=== PATIENT | female | born 1970 | race Caucasian/White ===

== ENCOUNTER 2022-12-11 13:39 | Outpatient (OUT) | payer MEDICARE, OTHER, MEDICAID, SELFPAY ==
[2022-12-11 13:58] LABS: Basophils Percent Auto 0.3 % (0.2-2.0); Eosinophils Absolute Auto 0.1 10^3/uL (0.0-0.7); Eosinophils Percent Auto 0.9 % (0.9-7.0); Hematocrit 49.6 % (36.0-48.0); Hemoglobin 16.2 g/dL (12.0-16.0); Immature Granulocytes Abs Auto 0.11 10^3/uL (0.00-0.03); Immature Granulocytes Pct Auto 0.7 % (0.0-0.5); Lymphocytes Absolute Auto 4.5 10^3/uL (1.2-3.8); Lymphocytes Percent Auto 29.5 % (20.5-60.0); Mean Corpuscular HGB Conc 32.7 g/dL (29.9-35.2); Mean Corpuscular Hemoglobin 28.5 pg (26.7-34.0); Mean Corpuscular Volume 87.2 fL (81.0-99.0); Mean Platelet Volume 12.1 fL (9.5-13.5); Monocytes Absolute Auto 0.7 10^3/uL (0.3-0.8); Monocytes Percent Auto 4.7 % (1.7-12.0); Neutrophils Absolute Auto 9.7 10^3/uL (1.4-6.5); Neutrophils Percent Auto 63.9 % (43.0-75.0); Platelet Count 172 10^3/uL (150-450); Red Blood Count 5.69 10^6/uL (4.20-5.40); Red Cell Distribution Width 14.1 % (11.0-15.0); White Blood Count 15.2 10^3/uL (4.0-11.0)
== END 2022-12-11 13:40 ==
LOC: LAB 13:40
PROVIDERS: PCP Nurse Practitioner; Visit Provider Nurse Practitioner
DX: D72.829 Elevated white blood cell count, unspecified (principal)
CPT/HCPCS: 36415; 85025

== ENCOUNTER 2023-01-23 07:28 | Outpatient (OUT) | payer MEDICARE, OTHER, MEDICAID, SELFPAY | END 2023-01-23 07:29 | LOC: SLEEP 07:28 | PROVIDERS: PCP Nurse Practitioner; Visit Provider Nurse Practitioner | DX: G47.33 Obstructive sleep apnea (adult) (pediatric) (principal) | CPT/HCPCS: 95811 ==

== ENCOUNTER 2023-01-24 07:53 | Outpatient (OUT) | payer MEDICARE, OTHER, MEDICAID, SELFPAY ==
--- NOTE | 2023-01-24 08:52 | CA_ITS ---
Patient: SINA NICHOLE Exam Date: 01/24/2023 : 1970 Gender:F Ordering : SAYDA Mckaylajuvenal Blas [facility] Admission #: [id number] Family : Order #: [id number] CLICK HERE TO VIEW EXAM ECHOCARDIOGRAM REPORT PROCEDURE: CA ECHO DOPPLER COMPLETE INDICATIONS: Pulmonary hypertension, COPD, smoker, hypertension, diabetes COMPARISON: None. DESCRIPTION: COMPLETE ECHOCARDIOGRAM Real-time transthoracic echocardiography with 2D, M-mode, spectral and color flow Doppler performed. QUALITY: Technically difficult study due to patients condition. Recommend contrast study if further evaluation of left ventricular function is needed. LEFT VENTRICLE: Mild dilatation. Moderate concentric left ventricular hypertrophy. Normal systolic function. LV EF: Normal left ventricular ejection fraction, (>55%). DIASTOLIC: Not adequately assessed due to heart rhythm. ATRIAL SEPTUM: LEFT ATRIUM: Normal chamber size. RIGHT ATRIUM: Normal chamber size. RIGHT VENTRICLE: Normal chamber size. Normal right ventricular systolic function. TRICUSPID VALVE: Not well visualized. No stenosis with no regurgitation. MITRAL VALVE: Normal mobility and thickness. No evidence of mitral valve stenosis. There is no mitral annular calcification. No mitral regurgitation. AORTIC VALVE: Normal trileaflet appearance. No visible sclerosis. Normal leaflet mobility. No evidence of aortic valve stenosis. No aortic regurgitation. AORTIC ROOT: Normal diameter and appearance. PULMONIC VALVE: Not well visualized. No stenosis. No regurgitation. PERICARDIUM: No evidence of pericardial effusion. IVC: Not well visualized. PLEURA: CONCLUSION: 1. Technically difficult study with poor sound transmission. 2. Moderate concentric left ventricular hypertrophy with normal systolic function. LVEF is 55 to 60%. 3. Normal right ventricular size and systolic function. 4. No significant valvular abnormalities. 5. No pericardial effusion. Adult Echocardiography Procedure Report Left Ventricle LVEDD (3.7 - 5.6 cm): 5.42 cm LVESD (2.2 - 4.0 cm): 3.21 cm LVIVS thickness (0.6 - 1.2 cm): 1.17 cm LVPW thickness (0.5 - 1.0 cm): 1.38 cm e': 0.07 m/s E - e': 10.49 LVOT Max Gradient: 4.59 mm[Hg] LVOT Area (cm2): 1.07 m/s Peak Velocity (LVOT): 1.07 m/s LVOT Diameter 2.28 cm Left Atrium Left Atrium Systolic Dimension: 3.79 cm Mitral Valve MV E to A Ratio: 0.90, 0.82 Mitral Valve A-Wave Peak Velocity: 0.87 m/s Mitral Valve E-Wave Peak Velocity: 0.75 m/s Right Ventricle Aorta AO Root Diam: 3.23 cm Aortic Valve AoV Area (Peak Song): 2.53 cm2, 2.53 cm2 Peak Velocity(Antegrade Flow): 1.73 m/s Peak Gradient(Antegrade Flow): 11.99 mm[Hg] Tricuspid Valve Pulmonic Valve Peak Velocity: 1.06 m/s Peak Gradient: 4.93 mm[Hg], 4.10 mm[Hg] Right Atrium Dictated by: Hayden Herrera M.D. on 01/25/2023 at 18:47 Approved by: Hayden Herrera M.D. on 01/25/2023 at 18:50
== END 2023-01-24 07:54 | disposition home or self-care (01) ==
LOC: CARD 07:53
PROVIDERS: PCP Nurse Practitioner; Visit Provider Nurse Practitioner
DX: I27.20 Pulmonary hypertension, unspecified (principal); G47.33 Obstructive sleep apnea (adult) (pediatric); J44.9 Chronic obstructive pulmonary disease, unspecified; I10 Essential (primary) hypertension; E11.9 Type 2 diabetes mellitus without complications; F17.210 Nicotine dependence, cigarettes, uncomplicated
CPT/HCPCS: 93306

== ENCOUNTER 2023-02-22 09:33 | Outpatient (OUT) | payer MEDICARE, OTHER, MEDICAID, SELFPAY ==
--- NOTE | 2023-02-22 09:45 | CT_ITS ---
[address] [address] Patient Name: SINA NICHOLE MRN: [id number] date: 1970 Sex: F Assigned Patient Location: CT Current Patient Location: Accession/Order Number: [id number] Exam Date: 02/22/2023 10:20 Report Date: 02/23/2023 01:29 At the request of: LUIS M CHAND Procedure: CT chest w con EXAMINATION: CT chest w con HISTORY: Abnormal Chest CT R93.89 follow-up hilar and mediastinal lymphadenopathy COMPARISON: CTA chest 12/04/2022 TECHNIQUE: Multi-planar CT images were obtained without and/or with IV contrast as indicated by examination type. Axial, Coronal, and Sagittal images. Dose reduction techniques were achieved by using automated exposure control and/or adjustment of mA and/or kV according to patient size and/or use of iterative reconstruction technique. FINDINGS: LUNGS: Trace amount of stranding within base of left upper lobe; residual infiltrates versus atelectasis. PLEURA: No mass, effusion, or pneumothorax. VASCULATURE: No abnormality. ZANDRA: No mass or adenopathy. MEDIASTINUM: No mass or adenopathy. CARDIAC: No enlargement, pericardial thickening, or significant calcification. AORTA: No aneurysm or dissection. CHEST WALL: No mass or axillary adenopathy. BONES: No bone lesion or fracture. LIMITED ABDOMEN: Stable partial fatty left adrenal mass favoring a benign adenoma. Limited images of the upper abdomen. OTHER: Negative. CT/CT chest w con IMPRESSION: 1. Trace amount of residual infiltrate versus atelectasis within left upper lobe. 2. Resolution of previously seen lymphadenopathy. 3. Stable left adrenal mass favoring benign etiology such as an adenoma. Electronically authenticated by: PATRICIA VELOZ Date: 02/23/2023 01:29
== END 2023-02-22 09:34 | disposition home or self-care (01) ==
LOC: CT 09:34
PROVIDERS: PCP Nurse Practitioner; Visit Provider Nurse Practitioner
DX: R93.89 Abnormal findings on diagnostic imaging of other specified body structures (principal)
CPT/HCPCS: 71260; Q9967

== ENCOUNTER 2023-03-08 12:47 | Outpatient (OUT) | payer MEDICARE, OTHER, MEDICAID, SELFPAY ==
--- NOTE | 2023-03-08 12:58 | P.CN_ITS ---
Consult Note: HPI Data of Consult Patient: known to practice within the last 3 years Requesting Physician: Angela Cochran NP Primary Care Provider: Mckayla Blas Consult Narrative Reason for consult: chronic pain f/u Narrative: Mitzi Macias a pleasant 52 year old female who presents for evaluation of chronic right hip pain, hx of osteoarthritis. Patient tolerating current regimen well with improvement but would like to discuss additional injection therapy. Today rating pain 7/10. cc:: CC: Angela Cochran NP Review of Systems ROS Status of ROS 10 or more systems reviewed and unremarkable except as noted in history and below Musculoskeletal Reports: back pain and joint pain Exam Constitutional Vital Signs, click to edit/add: BP elevated 187/73 Documenting provider has reviewed patient's vital signs: yes Common normals: no apparent distress, oriented x3, healthy appearing, alert and well nourished General appearance: cooperative Nutritional appearance: obese HENMT Common normals: normocephalic, hearing grossly normal bilaterally and moist oral mucous membranes Head and scalp: normocephalic Eye Common normals: PERRL Pupil: PERRL Neck & C-Spine Common normals: full ROM General: normal visual inspection Chest Common normals: inspection of chest normal Respiratory Common normals: normal respiratory effort, no retractions and no use of accessory muscles Back & Pelvis Lumbar spine/lower back: pain with ROM Other: modified physical exam due to size and wheelchair use. bilateral hip pain R>L no radiculopathy Neuro Common normals: oriented x3, CN's II-XII intact bilaterally, moves all extremities, no focal motor deficits, no sensory deficits noted and deep tendon reflexes 2+ bilaterally Sensorium/orientation: alert Gait (neuro): assistive device used (wheelchair) Motor exam: no movement abnormalities noted and strength abnormal (5/5 BUE 3/5 BLE) Other: chronic neuropathy Psych Common normals: mental status grossly normal, thought process normal, cooperative, affect normal, speech normal and activity/motor behavior normal Speech: normal speech Thought process: normal thought process Results Additional Findings Additional findings: I have checked an OARRS report on this patient today and there are no aberrancies noted in the prescribing history.?? A drug screen was completed and reviewed within the last year, and if there has not been a drug screen completed we ordered one today to monitor higher risk, state monitored pain medication use. As part of providing excellent, safe, comprehensive care, the following was completed at our patient's visit: 1. A medication reconciliation and review to ensure accurate knowledge of current/active medications, including asking our patients to inform us about any [id number] medications or herbal remedies/nutritional supplements/alternative remedies. 2. A review to specifically ensure our patients have had annual screening for: elevated body mass index (BMI), tobacco use, screening for depression, and screening for unhealthy alcohol use. When screening is concerning, patients are provided with education and the specific recommendation to discuss the concerning health issue and treatment options with their primary care provider. NIKKY 50% with severe pain, pain with ADLs, pain that prevents her from lifting heavy objects, can only walk using a stick or crutches, pain prevents her from standing for more than 10 minutes, pain interferes with sleep and social life. Assessment and Plan Assessment and Plan (1) Chronic right hip pain: (2) Osteoarthritis of hip: Assessment and Plan: reviewed xray imaging of hip (3) Chronic prescription opiate use: Assessment and Plan: I have refilled the patient's opioid prescriptions at the above noted dose and schedule.? I feel these medications are improving the patient's quality of life and allow them to tolerate activities of daily living as well as participate in recreational activity.? The patient does not report intolerable side effects. The patient is NOT opioid naive and non-pharmacologic and non-opioid treatment has failed to significantly relieve the patient's pain and improve functionality. The patient has a diagnosis that is related to a somatic or visceral pain etiology. ? ?? I reviewed with the patient the potential risks and side effects with the use of?opioid medications including but not limited to respiratory depression,?sedation, and even . I verified the patient has access to naloxone should? these effects occur. I advised the patient to avoid the use of any other?sedation substances including alcohol, THC, and benzodiazepines while?taking opioid medications due to the risk of compounding side effects and?detrimental outcomes. I reviewed the FORM STRIPPER, pain treatment agreement, urine?drug screen, and opioid start talking forms. The patient was advised to let?their family know they had Naloxone in case they would need to administer?the medication.? ?? functional improvement and pain reduction with current therapy (4) Obesity: Assessment and Plan: The patient was counseled that proper dietary changes and consistent participation in a home exercise plan can lead to weight loss. Weight loss can help to improve functionality in patients with chronic pain.? (5) Hypertension: Assessment and Plan: Blood pressure is elevated today. No signs or symptoms of KS/CVA including chest pain, SOB, left sided acute neck, arm, or jaw pain (separate from chronic pain complaint), diaphoresis, facial drooping, new acute neuro changes in both upper and lower extremities (other than those mentioned in the note above). Recommend follow up with PCP for further evaluation and treatment.? Plan right hip injection under fluoroscopy, risks vs benefits discussed refill and continue [place] 5-325 TID pain f/u after injection
== END 2023-03-08 12:48 | disposition home or self-care (01) ==
LOC: PM 12:50
PROVIDERS: PCP Nurse Practitioner; Visit Provider Nurse Practitioner
DX: M25.551 Pain in right hip (principal); G89.29 Other chronic pain; M19.90 Unspecified osteoarthritis, unspecified site; Z79.891 Long term (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 opiate analgesic
CPT/HCPCS: G0463

== ENCOUNTER 2023-03-15 09:04 | Outpatient (OUT) | payer MEDICARE, OTHER, MEDICAID, SELFPAY | END 2023-03-15 09:05 | disposition home or self-care (01) | LOC: WC 09:04 | PROVIDERS: PCP Nurse Practitioner; Visit Provider Physician Assistant | DX: L60.1 Onycholysis (principal) | CPT/HCPCS: G0463 ==

== ENCOUNTER 2023-03-27 11:34 | Day surgery (SDC) | payer MEDICARE, MEDICAID, SELFPAY ==
[2023-03-27 11:59] VITALS: BP 147/83; PULSE 76; RESP 16; TEMP 36.6; O2SAT 96
[2023-03-27 12:02] LABS: Glucometer 154 mg/dL (74-106)
[2023-03-27] MEDS: 0.9 % SODIUM CHLORIDE 10 ML SYRINGE - SALINE FLUSH 2 ML INJ (13:02)
[2023-03-27] MEDS: BUPIVACAINE HCL 0.25% PF 25 MG/10 ML VIAL 4 ML INJ (13:02)
[2023-03-27] MEDS: LIDOCAINE HCL 2% PF 100 MG/5 ML VIAL INJ (13:03)
[2023-03-27] MEDS: IOHEXOL 240 MG/ML - 10 ML VIAL INJ (13:03)
[2023-03-27] MEDS: METHYLPREDNISOLONE ACETATE 40 MG/ML VIAL INJ (13:03)
--- NOTE | 2023-03-27 13:28 | P.ON_ITS ---
Date of procedure: 03/27/23 Pre-op diagnosis: Right hip osteoarthritis Post-op diagnosis: same as pre-op Procedure: Procedure: Right Hip joint injection Pre & postoperative diagnosis: pain secondary to osteoarthritis. Immediate complications none. Anesthesia: 2% lidocaine plain for skin wheal. After informed consent was obtained, patient brought to the OR placed in the supine position. Skin overlying the area was prepped and draped using betadine. 25-gauge 1/2 inch needle was used for skin wheal over the medial aspect of the joint identified under fluoroscopy. Omnipaque dye was used to confirm needle tip placement within the hip joint space 0.5 mL use of the injection. Sub sequently Depomedrol 40mg and Marcaine 0.25% 4ml was injected into the space. No indication of intravascular or intraneuronal needle tip placement or injection was noted post procedure. The needle was removed, patient transferred to Recovery room in stable condition to discharged home after meeting criteria. Anesthesia: Local Surgeon: Temo Sharp Condition: stable
== END 2023-03-27 13:07 | disposition home or self-care (01) ==
LOC: SURGOUT 11:35
PROVIDERS: PCP Nurse Practitioner; Visit Provider Anesthesiology Pain Medicine
DX: M16.11 Unilateral primary osteoarthritis, right hip (principal); Z79.4 Long term (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
CPT/HCPCS: 20610; 36415; 36416; 77002; 82948; J1030; Q9966

== ENCOUNTER 2023-04-05 10:27 | Outpatient (OUT) | payer MEDICARE, MEDICAID, SELFPAY ==
--- NOTE | 2023-04-05 10:50 | PM.CN ---
Consult Note: HPI Data of Consult Patient: known to practice within the last 3 years Requesting Physician: Angela Cochran NP Primary Care Provider: Mckayla Blas Consult Narrative Reason for consult: f/u Narrative: Mitzi Macias a pleasant 52 year old female presents for evaluation of chronic low back and hip pain. today rating pain 6/10. Patient had no relief from right hip injection. Would like to discuss additional treatment options. cc:: CC: Angela Cochran NP Review of Systems ROS Status of ROS 10 or more systems reviewed and unremarkable except as noted in history and below Musculoskeletal Reports: back pain and joint pain PFSH PFS Medical History Surgical History Meds Home Medications and Allergies Home Medications Medication Instructions Recorded Confirmed Type acetaminophen 500 mg capsule 1,000 mg PO Q6H PRN fever or pain 03/20/23 03/27/23 History amitriptyline 25 mg tablet 25 mg PO DAILY 03/20/23 03/27/23 History aspirin 81 mg tablet,delayed 81 mg PO DAILY 03/20/23 03/27/23 History release (Adult Aspirin Regimen) budesonide-formoterol HFA 160 2 inh inhalation BID 03/20/23 03/27/23 History mcg-4.5 mcg/actuation aerosol inhaler (Symbicort) diclofenac sodium 75 mg 75 mg PO BID 03/20/23 03/27/23 History tablet,delayed release dulaglutide 3 mg/0.5 mL 3 mg subcut QWEEK 03/20/23 03/27/23 History subcutaneous pen injector (Trulicity) duloxetine 60 mg capsule,delayed 60 mg PO DAILY 03/20/23 03/27/23 History release furosemide 40 mg tablet 40 mg PO DAILY 03/20/23 03/27/23 History hydrocodone 5 mg-acetaminophen 325 1 tab PO TID 03/20/23 03/27/23 History mg tablet insulin aspart U-100 100 unit/mL 1 sliding scale dose subcut 03/20/23 03/27/23 History (3 mL) subcutaneous pen (Novolog USEASDIRECTD FlexPen U-100 Insulin aspart) insulin glargine 100 unit/mL 58 unit subcut BID 03/20/23 03/27/23 History subcutaneous solution (Lantus U-100 Insulin) lisinopril 20 mg tablet 20 mg PO DAILY 03/20/23 03/27/23 History omeprazole 20 mg capsule,delayed 20 mg PO DAILY 03/20/23 03/27/23 History release pregabalin 300 mg capsule 300 mg PO Q12H 03/20/23 03/27/23 History tiotropium bromide 2.5 2 inh inhalation DAILY 03/20/23 03/27/23 History mcg/actuation mist for inhalation (Spiriva Respimat) hydrocodone 5 mg-acetaminophen 325 1 tab PO TID PRN pain #90 tabs 03/26/23 03/27/23 Rx mg tablet Allergies Allergy/AdvReac Type Severity Reaction Status Date / Time No Known Drug Allergies Allergy Verified 03/27/23 12:05 Exam Constitutional Documenting provider has reviewed patient's vital signs: yes Common normals: no apparent distress, oriented x3, healthy appearing, alert and well nourished General appearance: cooperative HENMT Common normals: normocephalic, hearing grossly normal bilaterally and moist oral mucous membranes Head and scalp: normocephalic Eye Common normals: PERRL Pupil: PERRL Neck & C-Spine Common normals: full ROM General: normal visual inspection Chest Common normals: inspection of chest normal Respiratory Common normals: normal respiratory effort, no retractions and no use of accessory muscles Back & Pelvis Thoracic spine/upper back: ROM limited and pain with ROM Lumbar spine/lower back: ROM limited and pain with ROM Other: bilateral hip pain right> left Extremity Common normals: normal to inspection Neuro Common normals: oriented x3, CN's II-XII intact bilaterally, moves all extremities, no focal motor deficits, no sensory deficits noted and deep tendon reflexes 2+ bilaterally Sensorium/orientation: alert Gait (neuro): assistive device used other (wheelchair) Motor exam: no movement abnormalities noted and strength abnormal (4/5 BUE and BLE) Psych Common normals: mental status grossly normal, thought process normal, cooperative, affect normal, speech normal and activity/motor behavior normal Speech: normal speech Thought process: normal thought process Results Additional Findings Additional findings: I have checked an OARRS report on this patient today and there are no aberrancies noted in the prescribing history.?? A drug screen was completed and reviewed within the last year, and if there has not been a drug screen completed we ordered one today to monitor higher risk, state monitored pain medication use. As part of providing excellent, safe, comprehensive care, the following was completed at our patient's visit: 1. A medication reconciliation and review to ensure accurate knowledge of current/active medications, including asking our patients to inform us about any [id number] medications or herbal remedies/nutritional supplements/alternative remedies. 2. A review to specifically ensure our patients have had annual screening for: elevated body mass index (BMI), tobacco use, screening for depression, and screening for unhealthy alcohol use. When screening is concerning, patients are provided with education and the specific recommendation to discuss the concerning health issue and treatment options with their primary care provider. Assessment and Plan Assessment and Plan (1) Chronic prescription opiate use: Assessment and Plan: I feel these medications are improving the patient's quality of life and allow them to tolerate activities of daily living as well as participate in recreational activity.? The patient does not report intolerable side effects. The patient is NOT opioid naive and non-pharmacologic and non-opioid treatment has failed to significantly relieve the patient's pain and improve functionality. The patient has a diagnosis that is related to a somatic or visceral pain etiology. ? ?? I reviewed with the patient the potential risks and side effects with the use of? opioid medications including but not limited to respiratory depression,? sedation, and even . I verified the patient has access to naloxone should? these effects occur. I advised the patient to avoid the use of any other? sedation substances including alcohol, THC, and benzodiazepines while? taking opioid medications due to the risk of compounding side effects and? detrimental outcomes. I reviewed the BOREMATIC MACHINE OPERATOR, pain treatment agreement, urine? drug screen, and opioid start talking forms. The patient was advised to let? their family know they had Naloxone in case they would need to administer? the medication.? (2) Osteoarthritis: (3) Chronic pain syndrome: (4) Obesity: Assessment and Plan: The patient was counseled that proper dietary changes and consistent participation in a home exercise plan can lead to weight loss. Weight loss can help to improve functionality in patients with chronic pain.? (5) Lumbar spondylosis: (6) Osteoarthritis of hip: (7) Chronic right hip pain: Plan increase duloxetine to 60mg BID continue other medications, tolerating well without side effects f/u 6 weeks to discuss effectiveness of medication changes
== END 2023-04-05 10:28 | disposition home or self-care (01) ==
PROVIDERS: PCP Nurse Practitioner; Visit Provider Nurse Practitioner
DX: M19.90 Unspecified osteoarthritis, unspecified site (principal); G89.4 Chronic pain syndrome; Z79.899 Other long term (current) drug therapy; E66.9 Obesity, unspecified; M47.816 Spondylosis without myelopathy or radiculopathy, lumbar region; M16.10 Unilateral primary osteoarthritis, unspecified hip; M25.551 Pain in right hip
CPT/HCPCS: G0463

== ENCOUNTER 2023-05-16 11:07 | Outpatient (OUT) | payer MEDICARE, OTHER, SELFPAY ==
--- NOTE | 2023-05-16 11:38 | P.CN_ITS ---
Consult Note: HPI Data of Consult Patient: known to practice within the last 3 years Requesting Physician: Angela Cochran NP Primary Care Provider: Mckayla Blas Consult Narrative Reason for consult: f/u Narrative: Mitzi Macias a pleasant 52 year old female presents for evaluation and management of low back and right hip pain. Today pain 7/10. Describes it as an aching pain in low back, sharp in right hip. Tolerating current medication regimen well without side effects. Would like to discuss additional treatment options. last hip injection did not provide pain relief. cc:: CC: Angela Cochran NP Review of Systems ROS Status of ROS 10 or more systems reviewed and unremarkable except as noted in history and below Musculoskeletal Reports: back pain and joint pain PFSH PFSH Medical History Acid reflux ?K21.9 - Gastro-esophageal reflux disease without esophagitis (ICD-10) Amputation toe ?S98.139A - Complete traumatic amputation of one unspecified lesser toe, initial encounter (ICD-10) Asthma ?J45.909 - Unspecified asthma, uncomplicated (ICD-10) COPD (chronic obstructive pulmonary disease) ?J44.9 - Chronic obstructive pulmonary disease, unspecified (ICD-10) Diabetes ?E11.9 - Type 2 diabetes mellitus without complications (ICD-10) High cholesterol ?E78.00 - Pure hypercholesterolemia, unspecified (ICD-10) Neuropathy ?G62.9 - Polyneuropathy, unspecified (ICD-10) Surgical History History of hammertoe correction ?Z98.890 - Other specified postprocedural states (ICD-10) ?Z87.39 - Personal history of other diseases of the musculoskeletal system and connective tissue (ICD-10) History of hysterectomy ?Z90.710 - Acquired absence of both cervix and uterus (ICD-10) Hx of cholecystectomy ?Z90.49 - Acquired absence of other specified parts of digestive tract (ICD- 10) Meds Home Medications and Allergies Home Medications Medication Instructions Recorded Confirmed Type acetaminophen 500 mg capsule 1,000 mg PO Q6H PRN fever or pain 03/20/23 03/27/23 History amitriptyline 25 mg tablet 25 mg PO DAILY 03/20/23 03/27/23 History aspirin 81 mg tablet,delayed 81 mg PO DAILY 03/20/23 03/27/23 History release (Adult Aspirin Regimen) budesonide-formoterol HFA 160 2 inh inhalation BID 03/20/23 03/27/23 History mcg-4.5 mcg/actuation aerosol inhaler (Symbicort) diclofenac sodium 75 mg 75 mg PO BID 03/20/23 03/27/23 History tablet,delayed release dulaglutide 3 mg/0.5 mL 3 mg subcut QWEEK 03/20/23 03/27/23 History subcutaneous pen injector (Trulicity) duloxetine 60 mg capsule,delayed 60 mg PO DAILY 03/20/23 03/27/23 History release furosemide 40 mg tablet 40 mg PO DAILY 03/20/23 03/27/23 History hydrocodone 5 mg-acetaminophen 325 1 tab PO TID 03/20/23 03/27/23 History mg tablet insulin aspart U-100 100 unit/mL 1 sliding scale dose subcut 03/20/23 03/27/23 History (3 mL) subcutaneous pen (Novolog USEASDIRECTD FlexPen U-100 Insulin aspart) insulin glargine 100 unit/mL 58 unit subcut BID 03/20/23 03/27/23 History subcutaneous solution (Lantus U-100 Insulin) lisinopril 20 mg tablet 20 mg PO DAILY 03/20/23 03/27/23 History omeprazole 20 mg capsule,delayed 20 mg PO DAILY 03/20/23 03/27/23 History release pregabalin 300 mg capsule 300 mg PO Q12H 03/20/23 03/27/23 History tiotropium bromide 2.5 2 inh inhalation DAILY 03/20/23 03/27/23 History mcg/actuation mist for inhalation (Spiriva Respimat) hydrocodone 5 mg-acetaminophen 325 1 tab PO TID PRN pain #90 tabs 03/26/23 03/27/23 Rx mg tablet duloxetine 60 mg capsule,delayed 60 mg PO BID #60 caps 04/05/23 Rx release hydrocodone 5 mg-acetaminophen 325 1 tab PO TID PRN pain #90 tabs 04/20/23 Rx mg tablet Allergies Allergy/AdvReac Type Severity Reaction Status Date / Time No Known Drug Allergies Allergy Verified 03/27/23 12:05 Exam Constitutional Documenting provider has reviewed patient's vital signs: yes Common normals: no apparent distress, oriented x3, healthy appearing, alert and well nourished General appearance: cooperative HENMT Common normals: normocephalic, hearing grossly normal bilaterally and moist oral mucous membranes Head and scalp: normocephalic Eye Common normals: PERRL Pupil: PERRL Neck & C-Spine Common normals: full ROM General: normal visual inspection Chest Common normals: inspection of chest normal Respiratory Common normals: normal respiratory effort, no retractions and no use of accessory muscles Back & Pelvis Thoracic spine/upper back: ROM limited and pain with ROM Lumbar spine/lower back: ROM limited and pain with ROM Other: bilateral hip pain right> left bilateral facet loading pain over l4-5 l5-s1 facets Extremity Common normals: normal to inspection Neuro Common normals: oriented x3, CN's II-XII intact bilaterally, moves all extremities, no focal motor deficits, no sensory deficits noted and deep tendon reflexes 2+ bilaterally Sensorium/orientation: alert Gait (neuro): assistive device used other (wheelchair) Motor exam: no movement abnormalities noted and strength abnormal (4/5 BUE and BLE) Psych Common normals: mental status grossly normal, thought process normal, cooperative, affect normal, speech normal and activity/motor behavior normal Speech: normal speech Thought process: normal thought process Assessment and Plan Assessment and Plan (1) Obesity: (2) Chronic prescription opiate use: (3) Osteoarthritis of hip: (4) Lumbar spondylosis: (5) Chronic pain syndrome: (6) Osteoarthritis: (7) Chronic right hip pain: Plan update imaging of lumbar spine bilateral L4-5 L5-S1 mbb x2 working towards thermal RFA based on physical exam patient unsure if she increased duloxetine to 60mg BID, she thinks she is still on 90mg daily. encouraged to increase to 60mg BID to assist in pain management continue f/u with endocrinology, consider alternative medications to assist in weight loss efforts non surgical for right hip OA due to obesity f/u 1 week after MBB
--- OUTSIDE RECORDS SUMMARY | 2023-06-26 14:01 | XMS_ITS | CCD ---
Author Name Unknown Address [address] [facility] [address] [facility] [address] [place] [address] Organization [facility] Care Team Providers Care Civil Rights Representative Name Role Phone Rufino Desouza Primary Care Provider [phone] RUFINO DESOUZA Primary Care Unavailable MARY TAVERAS Admitting Unavailable KYLAHEMARY Attending Unavailable AICHHOLZ, LUIS M Primary Care Unavailable AICHHOLZ, LUIS M Referring Unavailable AICHJODIE, LUIS M J Primary Care Physician Tico, Stephanie Unavailable GAVIOTA VEGA Attending Unavailable GAVIOTA VEGA Attending Unavailable MANNIE LUIS M J Referring Unavailable Elbert VARGAS Attending Unavailable OLE RAMIREZ Attending Unavailable OLE RAMIREZ Consulting Unavailable AICHHOLZ, LINOLEUM LAYER HELPER LUIS M Primary Care Unavailable OLE RAMIREZ Admitting Unavailable ANTONY SHRESTHA Consulting Unavailable ALONDRA ., UMBERTO Admitting Unavailable ALONDRA ., UMBERTO Attending Unavailable AICHHOLZ, LINOLEUM LAYER HELPER LUIS M Primary Care Unavailable AFSANEH Loera, DR BOLANOS Consulting Unavailable MARYANNE POWER Consulting Unavailable GLENN KERR Consulting Unavailable YOMAIRA KERR Consulting Unavailable HATTIE GOFF Consulting Unavailable ALONDRA ., UMBERTO Consulting Unavailable TICO, STEPHANIE Attending Unavailable TICO, STEPHANIE Consulting Unavailable AICHHOLZ, LINOLEUM LAYER HELPER LUIS M Primary Care Unavailable TICO, STEPHANIE Admitting Unavailable VARGAS ., DR DUMONT Admitting Unavailable AICHHOLZ, LINOLEUM LAYER HELPER LUIS M Primary Care Unavailable VARGAS ., DR DUMONT Attending Unavailable VARGAS ., DR DUMONT Consulting Unavailable COLLIN HUERTAS Consulting Unavailable CECILIA KAUFMAN Admitting Unavailable CECILIA KAUFMAN Attending Unavailable AICHHOLZ, LINOLEUM LAYER HELPER LUIS M Primary Care Unavailable RAFAEL GONGORA Attending Unavailable ROLAN, RAFAEL Admitting Unavailable AICHHOLZ, LINOLEUM LAYER HELPER LUIS M Primary Care Unavailable AICHHOLZ, LINOLEUM LAYER HELPER LUIS M Admitting Unavailable AICHHOLZ, LINOLEUM LAYER HELPER LUIS M Primary Care Unavailable AICHHOLZ, LINOLEUM LAYER HELPER LUIS M Attending Unavailable AICHHOLZ, LINOLEUM LAYER HELPER LUIS M Consulting Unavailable LAKSHMIPATHY ., NARENDRANATH Attending Anette vailable LAKSHMIPATHY ., NARENDRANATH Consulting Anette vailable LAKSHMIPATHY ., NARENDRANATH Admitting Anette vailable AICHHOLZ, LINOLEUM LAYER HELPER LUIS M Primary Care Unavailable VALENZUELA ., GIL Consulting Unavailable MORTENSEN ., DR CHAPARRO Aguillon Attending Unavailable MORTENSEN ., DR CHAPARRO Aguillon Admitting Unavailable AICHHOLZ, LINOLEUM LAYER HELPER LUIS M Primary Care Unavailable VALENZUELA ., GIL Consulting Unavailable MORTENSEN ., DR CHAPARRO Aguillon Admitting Unavailable AICHHOLZ, LINOLEUM LAYER HELPER LUIS M Primary Care Unavailable MORTENSEN ., DR CHAPARRO Aguillon Attending Unavailable HALKER ., SUBHASH Consulting Unavailable LAKSHMIPATHY ., NARENDRANATH Admitting Anette vailable LAKSHMIPATHY ., NARENDRANATH Attending Anette vailable AICHHOLZ, LINOLEUM LAYER HELPER LUIS M Primary Care Unavailable MORTENSEN ., DR CHAPARRO Aguillon Attending Unavailable MORTENSEN ., DR CHAPARRO Aguillon Admitting Unavailable VALENZUELA ., GIL Consulting Unavailable AICHHOLZ, LINOLEUM LAYER HELPER LUIS M Primary Care Unavailable VALENZUELA ., GIL Consulting Unavailable MORTENSEN ., DR CHAPARRO Aguillon Attending Unavailable MORTENSEN ., DR CHAPARRO Aguillon Admitting Unavailable AICHHOLZ, LINOLEUM LAYER HELPER LUIS M Primary Care Unavailable HATTIE BRODERICK Attending Unavailable HATTIE BRODERICK Admitting Unavailable AICHHOLZ, LINOLEUM LAYER HELPER LUIS M Primary Care Unavailable AICHHOLZ, LINOLEUM LAYER HELPER LUIS M Admitting Unavailable AICHHOLZ, LINOLEUM LAYER HELPER LUIS M Consulting Unavailable AICHHOLZ, LINOLEUM LAYER HELPER LUIS M Primary Care Unavailable AICHHOLZ, LINOLEUM LAYER HELPER LUIS M Attending Unavailable AICHHOLZ, LINOLEUM LAYER HELPER LUIS M Primary Care Unavailable MISC, DR LESLIE Admitting Unavailable MISC, DR LESLIE Attending Unavailable MISC, DOCTOR Consulting Unavailable DIAB ., MARIANO Admitting Unavailable DIAB ., MARIANO Attending Unavailable DIAB ., MARIANO Consulting Unavailable AICHHOLZ, LINOLEUM LAYER HELPER LUIS M Primary Care Unavailable RASTEGAR, RICCO Consulting Unavailable AICHHOLZ, LINOLEUM LAYER HELPER LUIS M Admitting Unavailable AICHHOLZ, LINOLEUM LAYER HELPER LUIS M Primary Care Unavailable AICHHOLZ, LINOLEUM LAYER HELPER LUIS M Attending Unavailable AICHHOLZ, LINOLEUM LAYER HELPER LUIS M Consulting Unavailable DR PATRICIA IVAN Consulting Unavailable CECILIA KAUFMAN Attending Unavailable CECILIA KAUFMAN Admitting Unavailable DR PATRICIA IVAN Consulting Unavailable [facility] Primary Care Unavailable CECILIA KAUFMAN Consulting Unavailable FESTUS ., DR CHAPARRO Aguillon Attending Unavailable FESTUS ., DR CHAPARRO Aguillon Consulting Unavailable FESTUS ., DR CHAPARRO Aguillon Admitting Unavailable [facility] Primary Care Unavailable HATTIE BRODERICK Attending Unavailable HATTIE BRODERICK Consulting Unavailable HATTIE BRODERICK Admitting Unavailable [facility] Primary Care Unavailable HATTIE BAUTISTA Unavailable [facility] LUIS M Admitting Unavailable [facility] Attending Unavailable [facility] Consulting Unavailable [facility] Primary Care Unavailable Allergies Allergy Classification Reported Allergen(s) Allergy Type Date of Onset Reaction(s) Facility (1 source) No Known Medication Allergies; 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: [No Known Medication Allergies] Propensity to adverse reactions (disorder) [facility] Repository Medications Current Medications Medication Drug Class(es) Dates Sig (Normalized) Sig (Original) acetaminophen 325 mg / HYDROcodone bitartrate 5 mg oral tablet (4 sources) Opioid Agonist Start: 02-06-2022 acetaminophen-hydr ocodone 325 mg-5 mg oral tablet Refill(s) 0 Start Date: 02/06/22 Status: Ordered take 1 tablet by vandana twice daily as needed Varina 5-325 MG 1 tablet as needed Orally TWICE A DAY Active albuterol 0.83 mg/ml inhalation solution (4 sources) beta2-Adrenergic Agonist Start: 02-06-2022 albut gilbert 0.083% Inh Tracey 3 mL Refill(s) 0 Start Date: 02/06/22 Status: Ordered Albuterol Sulfat e (2.5 MG/3ML) 0.083% 3 mL as needed Inhalation every 6 hrs Active amitriptyline hydrochloride 25 mg oral tablet (4 sources) Tricyclic Antidepressant Start: 02-06-2022 amitriptyline 25 mg Tab Refills(s) 0 Start Date: 02/06/22 Status: Ordered 120 actuat budesonide 0.16 mg/actuat / formoterol fumarate 0.0045 mg/actuat metered dose inhaler (2 sources) Corticosteroid, beta2-Adrenergic Agonist take 2 puff(s) by inhalation twice daily Symbicort 160-4.5 MCG/ACT 2 puffs Inhalation Twice a day Active diclofenac sodium 75 mg delayed release oral tablet (4 sources) Nonsteroidal Anti-inflammatory Drug Start: 02-06-2022 diclofenac sodium 75 mg Oral EC Tab Refills(s) 0 Start Date: 02/06/22 Status: Ordered 0.5 ML dulaglutide 9 MG/ML Auto-Injector [Trulicity] (4 sources) GLP-1 Receptor Agonist Start: 02-06-2022 Trulicity Pen 4.5 mg/0.5 mL subcutaneous solution Refills(s) 0 Start Date: 02/06/22 Status: Ordered Trulicity 4.5 MG /0.5ML as directed Subcutaneous ONCE A WEEK Active DULoxetine 30 mg delayed release oral capsule (3 sources) Serotonin and Norepinephrine Reuptake Inhibitor Start: 02-06-2022 DULoxetine 30 mg Cap-EC Refills(s) 0 Start Date: 02/06/22 Status: Ordered DULoxetine 30 mg Cap-EC (1 source) Start: 02-06-2022 DULoxetine 30 mg Cap-EC Refills(s) 0 Start Date: 02/06/22 Status: Ordered furosemide 20 mg oral tablet (6 sources) Loop Diuretic Start: 02-06-2022 furosemide 20 mg Tab Refills(s) 0 Start Date: 02/06/22 Status: Ordered take 1 tablet by vandana th once daily in the morning Furosemide 40 MG 1 tablet Orally ONCE A DAY IN THE AM Active NovoLog (4 sources) Insulin Analog Start: 02-06-2022 NovoLog SubCut aneous, TIDAC, Refills(s) 0 Start Date: 02/06/22 Status: Ordered NovoLOG 100 UNIT /ML as directed Injection SLIDING SCALE BEFORE EACH MEAL Active 3 ml insulin glargine 100 unt/ml pen injector (4 sources) Insulin Analog Start: 02-06-2022 Lantus Solosta r Pen 100 units/mL subcutaneous solution Refills(s) 0 Start Date: 02/06/22 Status: Ordered Lantus SoloStar 100 UNIT/ML as directed Subcutaneous 58 UNITS ONCE A DAY Active lisinopril 20 mg oral tablet (4 sources) Angiotensin Converting Enzyme Inhibitor Start: 02-06-2022 lisinopril 20 mg Tab Refills(s) 0 Start Date: 02/06/22 Status: Ordered meloxicam (4 sources) Nonsteroidal Anti-inflammatory Drug Start: 02-06-2022 meloxicam Daily, Refills(s) 0 Start Date: 02/06/22 Status: Ordered take 1 tablet by vandana th every twenty-four hours Meloxicam 7.5 MG 1 tablet Orally Once a day Active metFORMIN hydrochloride 1000 mg oral tablet (1 source) Biguanide take 1 tablet by mouth twice daily at mealtime metFORMIN (GLUCOPHAGE) 1000 MG tablet Take 1,000 mg by mouth 2 times daily (with meals). 0 Active potassium chloride 10 meq extended release oral capsule (4 sources) Start: 02-06-2022 potassium chloride 10 mEq Cap-ER Refills(s) 0 Start Date: 02/06/22 Status: Ordered take 1 tablet by vandana th every twenty-four hours Potassium Chloride ER 10 MEQ 1 tablet with food Orally Once a day Active Lyrica (6 sources) Start: 02-06-2022 Lyrica Oral, R efills(s) 0 Start Date: 02/06/22 Status: Ordered Start: 02-06-2022 pregabalin 300 mg Cap Refills(s) 0 Start Date: 02/06/22 Status: Ordered Symbicort 160/4.5 inhalation aerosol with adapter (2 sources) Start: 02-06-2022 Symbicort 160/ 4.5 inhalation aerosol with adapter Refill(s) 0 Start Date: 02/06/22 Status: Ordered 60 actuat tiotropium 0.0025 mg/actuat inhalation spray (4 sources) Anticholinergic Start: 02-06-2022 Spiriva Respim at 60 ACT 2.5 mcg/inh inhalation aerosol Refills(s) 0 Start Date: 02/06/22 Status: Ordered take 2 puff(s) by inhalation twi ce daily Spiriva Respimat 2.5 MCG/ACT 2 puffs Inhalation TWICE A DAY Active Problems Active Problems Problem Classification Problem Date Documented Da te Episodic/Chronic Abdominal pain (5 sources) Left flank pain; 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: [Lower abdominal pain, unspecified] Onset: 10-05-2022 02-06-2022 Episodic Acquired foot deformities (1 source) Other hammer toe(s) (acquired), right foot; 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: [OTHER HAMMER TOES ACQUIRED RT FOOT] Onset: 09-01-2022 Chronic Acquired foot deformities (1 source) Other hammer toe(s) (acquired), left foot; 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: [OTHER HAMMER TOES ACQUIRED LT FOOT] Onset: 09-01-2022 Chronic Administrative/social admission (2 sources) Patient encounter status; 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: [Dietary counseling and surveillance] Episodic Asthma (2 sources) Asthma 02-06-2022 Chronic Calculus of urinary tract (4 sources) Kidney stone; 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: [Calculus of kidney] Onset: 02-06-2022 Episodic Chronic kidney disease (5 sources) Chronic kidney disease; 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: [Chronic kidney disease, unspecified] Onset: 02-20-2022 Resolved: 03-08-2022 Chronic Chronic obstructive pulmonary disease and bronchiectasis (6 sources) Pulmonary emphysema; 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: [Chronic obstructive pulmonary disease with (acute) exacerbation] Onset: 10-09-2022 02-06-2022 Chronic Chronic ulcer of skin (3 sources) Non-pressure chronic ulcer of other part of right lower leg limited to breakdown of skin; 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: [Non-pressure chronic ulcer of other part of left lower leg limited to breakdown of skin] Onset: 09-01-2022 Chronic Diabetes mellitus with complications (19 sources) Disorder of kidney due to diabetes mellitus; 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: [Type 2 diabetes mellitus with diabetic chronic kidney disease] Onset: 02-20-2022 Resolved: 03-08-2022 Chronic Diabetes mellitus without complication (3 sources) Type 2 diabetes mellitus; 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: [Type 2 diabetes mellitus without complications] Onset: 04-27-2022 02-06-2022 Chronic Disorders of lipid metabolism (3 sources) Pure hypercholesterolemia, unspecified; 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: [Hyperlipidemia, unspecified] Onset: 04-06-2022 Chronic Esophageal disorders (1 source) Gastro-esophageal reflux disease without esophagitis; 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: [GERD WITHOUT ESOPHAGITIS] Onset: 12-05-2022 Chronic Essential hypertension (7 sources) Hypertensive disorder; 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: [Essential (primary) hypertension] Onset: 11-23-2022 02-06-2022 Chronic Genitourinary symptoms and ill-defined conditions (4 sources) Mixed incontinence; 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: [Incontinence] Onset: 02-06-2022 Chronic Headache; including migraine (2 sources) Headache 02-06-2022 Episodic Hypertension with complications and secondary hypertension (5 sources) Chronic kidney disease due to hypertension; 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: [Hypertensive chronic kidney disease with stage 1 through stage 4 chronic kidney disease, or unspecified chronic kidney disease] Onset: 02-20-2022 Resolved: 03-08-2022 Chronic Immunizations and screening for infectious disease (1 source) Encounter for screening for other infectious and parasitic diseases; 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: [ENC SCREENING OTH INF PARASITIC DZ] Onset: 09-29-2022 Episodic Mood disorders (1 source) Major depressive disorder, single episode, unspecified; 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: [ANASTACIO DEPRESS D/O SINGLE EPIS UNS] Onset: 12-27-2021 Chronic Mood disorders (1 source) Mood disorders; 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: [DEPRESSION UNSPECIFIED] Onset: 12-05-2022 Noninfectious gastroenteritis (1 source) Noninfective gastroenteritis and colitis, unspecified; 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: [NONINFECTIVE GE AND COLITIS UNS] Onset: 10-09-2022 Episodic Osteoarthritis (9 sources) Arthritis; 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: [Unspecified osteoarthritis, unspecified site] Onset: 04-20-2022 02-06-2022 Chronic Other aftercare (1 source) Other director long term care (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 therapy; 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: [OTH [facility] CURRENT DRUG THERAPY] Onset: 12-05-2022 Episodic Other aftercare (1 source) intermediate frame tender (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; 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: [FCI CURRENT USE OF ASPIRIN] Onset: 12-05-2022 Episodic Other aftercare (1 source) longterm (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; 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: [BRANCH LIBRARY CLERK CURRENT USE OF INSULIN] Onset: 12-05-2022 Episodic Other bone disease and musculoskeletal deformities (1 source) Acquired absence of other left toe(s); 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: [ACQUIRED ABSENCE OF OTHER LEFT TOES] Onset: 12-05-2022 Episodic Other diseases of kidney and ureters (1 source) Urinary tract obstruction; 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: [Other obstructive and reflux uropathy] Onset: 02-06-2022 Episodic Other diseases of veins and lymphatics (1 source) Chronic venous hypertension (idiopathic) with ulcer and inflammation of bilateral lower extremity; 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: [CHRN KEO HTN ULCR INFLAM ALEX LW EXT] Onset: 09-01-2022 Chronic Other diseases of veins and lymphatics (1 source) Chronic venous hypertension (idiopathic) with ulcer of left lower extremity; 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: [CHRON VENOUS HTN W/ULCER LT LW EXT] Onset: 09-01-2022 Chronic Other diseases of veins and lymphatics (1 source) Lymphedema, not elsewhere classified; 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: [LYMPHEDEMA NOT ELSEWHERE CLASSIFIED] Onset: 09-01-2022 Chronic Other endocrine disorders (2 sources) Disorder of adrenal gland; 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: [Other specified disorders of adrenal gland] Onset: 02-06-2022 Chronic Other endocrine disorders (2 sources) Adrenal mass; 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: [Disorder of adrenal gland, unspecified] Chronic Other endocrine disorders (2 sources) Disorder of adrenal gland, unspecified Onset: 02-20-2022 Resolved: 03-08-2022 Chronic Other endocrine disorders (5 sources) Other specified disorders of adrenal gland; 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: [OTHER SPEC DISORDERS ADRENAL GLAND] Onset: 07-27-2022 Chronic Other gastrointestinal disorders (2 sources) Adrenal mass 02-06-2022 Episodic Other lower respiratory disease (1 source) Hypoxemia; 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: [HYPOXEMIA] Onset: 12-05-2022 Episodic Other nervous system disorders (5 sources) Chronic pain syndrome; 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: [CHRONIC PAIN SYNDROME] Onset: 01-23-2022 Chronic Other nervous system disorders (1 source) Other chronic pain; 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: [OTHER CHRONIC PAIN] Onset: 04-24-2022 Chronic Other non-traumatic joint disorders (4 sources) Pain in right hip; 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: [PAIN IN RIGHT HIP] Onset: 04-27-2022 Episodic Other nutritional; endocrine; and metabolic disorders (2 sources) Localized adiposity; 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: [Localized adiposity] Chronic Other nutritional; endocrine; and metabolic disorders (2 sources) Body mass index 40+ - severely obese; 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: [Body mass index (BMI) 50.0-59.9, adult] Chronic Other nutritional; endocrine; and metabolic disorders (1 source) Body mass index (BMI) 50.0-59.9, adult; 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: [BODY MASS INDEX BMI 50.0-59.9 ADULT] Onset: 12-05-2022 Chronic Other nutritional; endocrine; and metabolic disorders (1 source) Morbid (severe) obesity due to excess calories; 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: [MORBID SEVERE OBES D/T EXCESS NHI] Onset: 12-05-2022 Chronic Other nutritional; endocrine; and metabolic disorders (1 source) Obesity, unspecified; 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: [OBESITY UNSPECIFIED] Onset: 04-24-2022 Chronic Other screening for suspected conditions (not mental disorders or infectious disease) (1 source) Encounter for screening mammogram for malignant neoplasm of breast; 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: [ENC SCR MAMMO MALIG NEOPLASM BREAST] Onset: 11-25-2022 Episodic Pancreatic disorders (not diabetes) (1 source) Acute pancreatitis without necrosis or infection, unspecified; 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: [ACUTE PANCREATITIS WO NECRS/INF UNS] Onset: 10-09-2022 Episodic Peripheral and visceral atherosclerosis (1 source) Peripheral vascular disease, unspecified; 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: [PERIPHERAL VASCULAR DISEASE UNS] Onset: 09-01-2022 Chronic Residual codes; unclassified (1 source) Obstructive sleep apnea (adult) (pediatric); 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: [OBSTRUCTIVE SLEEP APNEA] Onset: 10-09-2022 Chronic Residual codes; unclassified (1 source) Acquired absence of other specified parts of digestive tract; 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: [ACQ ABSENCE OTH PART DIGESTV TRACT] Onset: 12-05-2022 Episodic Residual codes; unclassified (1 source) Acquired absence of both cervix and uterus; 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: [ACQUIRED ABSENCE BOTH CERVIX AND UTERUS] Onset: 12-05-2022 Episodic Residual codes; unclassified (1 source) Family history of malignant neoplasm of ovary; 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: [FAM HX MALIGNANT NEOPLASM OVARY] Onset: 11-25-2022 Episodic Residual codes; unclassified (1 source) Family history of malignant neoplasm, unspecified; 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: [FAM HX MALIGNANT NEOPLASM UNS] Onset: 11-25-2022 Episodic Substance-related disorders (5 sources) Nicotine dependence; 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: [Nicotine dependence, unspecified, uncomplicated] Onset: 02-06-2022 Chronic Comment on above: Added secondary to d ocumentation in Social History. Unclassified (1 source) BRANCH LIBRARY CLERK INJECT NONINSULN ANTIDIAB; 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: [BRANCH LIBRARY CLERK INJECT NONINSULN ANTIDIAB] Onset: 12-05-2022 Unclassified (3 sources) CONTACT W/AND (SUSP) EXPOS COVID-19; 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: [CONTACT W/AND (SUSP) EXPOS COVID-19] Onset: 07-08-2022 Unclassified (3 sources) LOW BACK PAIN, UNSPECIFIED; 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 : [LOW BACK PAIN, UNSPECIFIED] Onset: 12-27-2021 Viral infection (1 source) COVID-19; 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: [COVID-19] Onset: 09-29-2022 Past or Other Problems Problem Classification Problem Date Documented Da te Episodic/Chronic Acquired foot deformities (1 source) Other deformities of toe(s) (acquired), left foot; 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: [OTHER DEFORMITIES TOES ACQ LT FOOT] Onset: 09-01-2022 Episodic E Codes: Natural/environment (1 source) Other and unspecified overexertion or strenuous movements or postures, initial encounter; 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: [OTH AND UNS OVREXRT/STRN MVMT/POS INT] Onset: 12-27-2021 Episodic Genitourinary symptoms and ill-defined conditions (6 sources) Proteinuria; 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: [Proteinuria, unspecified] Onset: 02-06-2022 Resolved: 03-08-2022 Episodic Mycoses (5 sources) Tinea unguium; 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: [TINEA UNGUIUM] Onset: 07-26-2022 Episodic Other connective tissue disease (4 sources) Other muscle spasm; 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: [OTHER MUSCLE SPASM] Onset: 01-19-2022 Episodic Other hematologic conditions (1 source) Secondary polycythemia Onset: 03-08-2022 Resolved: 03-08-2022 Episodic Other non-traumatic joint disorders (1 source) Effusion, left knee; 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: [EFFUSION LEFT KNEE] Onset: 07-26-2022 Episodic Other non-traumatic joint disorders (1 source) Pain in left knee; 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: [PAIN IN LEFT KNEE] Onset: 07-26-2022 Episodic Other skin disorders (1 source) Nail dystrophy; 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: [NAIL DYSTROPHY] Onset: 09-01-2022 Episodic Other skin disorders (1 source) Corns and callosities; 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: [CORNS AND CALLOSITIES] Onset: 09-01-2022 Episodic Other skin disorders (1 source) Xerosis cutis; 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: [XEROSIS CUTIS] Onset: 09-01-2022 Episodic Residual codes; unclassified (1 source) Localized edema; 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: [LOCALIZED EDEMA] Onset: 09-01-2022 Episodic Skin and subcutaneous tissue infections (5 sources) Cellulitis of right lower limb; 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: [Cutaneous abscess of left axilla] Onset: 07-18-2022 Episodic Sprains and strains (1 source) Strain of muscle, fascia and tendon of lower back, initial encounter; 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: [STRAIN MUSC FASC TENDON LW BACK INT] Onset: 12-27-2021 Episodic Unclassified (1 source) CONTACT W/AND (SUSP) EXPOS COVID-19; 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: [CONTACT W/AND (SUSP) EXPOS COVID-19] Onset: 09-21-2022 Unclassified (1 source) LOW BACK PAIN, UNSPECIFIED; 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: [LOW BACK PAIN, UNSPECIFIED] Onset: 12-24-2021 Results Test Name Value Interpretation Reference Range Facil ity CBC AUTO DIFFon 12-06-2022 BASO # 0.0 103/ul Normal 0.0-0.1 [facility] Comment on above: Performed By: #### C BC #### [facility] [address] [address] [address] Ashlie Hills Basophils/100 WBC (Bld) 0.1 % Critically low 0.2-2.0 [facility] Comment on above: Performed By: #### C BC #### [facility] [address] [address] [address] Ashlie Hills EO # 0.0 103/ul Normal 0.0-0.7 [facility] Comment on above: Performed By: #### C BC #### [facility] [address] [address] [address] Ashlie Hills Eosinophils/100 WBC (Bld) 0.0 % Critically low 0.9-7. 0 [facility] Comment on above: Performed By: #### C BC #### [facility] [address] [address] [address] Ashlie Hills Erythrocyte distribution wid th (RBC) [Ratio] 14.9 % Normal 11.0-15.[address] [facility] Comment on above: Performed By: #### C BC #### [facility] [address] [address] [address] Ashlie Hills Hematocrit (Bld) [Volume fraction] 46.2 % Normal 3 6.0-48.0 [facility] Comment on above: Performed By: #### C BC #### [facility] [address] [address] [address] Ashlie Hills Hemoglobin (Bld) [Mass/Vol] 14.7 g/dL Normal 12.0-16. 0 [facility] Comment on above: Performed By: #### C BC #### [facility] [address] [place] [address] Dr. Ashlie Hills IG # 0.06 10e3/ul Critically high 0.00-0.03 [facility] Comment on above: Performed By: #### C BC #### [facility] [address] [place] [address] Dr. Ashlie Hills IG % 0.4 % Normal 0.0-0.5 [facility] Comment on above: Performed By: #### C BC #### [facility] [address] [place] [address] Dr. Ashlie Hills LYMPH # 1.3 103/ul Normal 1.2-3.8 [facility] Comment on above: Performed By: #### C BC #### [facility] [address] [place] [address] Dr. Ashlie Hills Lymphocytes/100 WBC (Bld) 9.4 % Critically low 20.5-6 0.0 [facility] Comment on above: Performed By: #### C BC #### [facility] [address] [place] [address] Dr. Ashlie Hills MANUAL DIFF REQ NO Normal [facility] Comment on above: Performed By: #### C BC #### [facility] [address] [place] [address] Dr. Ashlie Hills MCH (RBC) [Entitic mass] 28.4 pg Normal 26.7-34.0 [facility] Comment on above: Performed By: #### C BC #### [facility] [address] [place] [address] Dr. Ashlie Hills MCHC (RBC) [Mass/Vol] 31.8 g/dL Normal 29.9-35.2 [facility] Comment on above: Performed By: #### C BC #### [facility] [address] [place] [address] Dr. Ashlie Hills MCV (RBC) [Entitic vol] 89.4 fL Normal 81.0-99.0 [facility] Comment on above: Performed By: #### C BC #### [facility] [address] [address] [address] Ashlie Hills MONO # 0.5 103/ul Normal 0.3-0.8 [facility] Comment on above: Performed By: #### C BC #### [facility] [address] [address] [address] Ashlie Hills Monocytes/100 WBC (Bld) 3.4 % Normal 1.7-12.0 [facility] Comment on above: Performed By: #### C BC #### [facility] [address] [place] [address] Dr. Ashlie Hills NEUT # 11.8 103/ul Critically high 1.4-6.5 [facility] Comment on above: Performed By: #### C BC #### [facility] [address] [place] [address] Dr. Ashlie Hills Neutrophils/100 WBC (Bld) 86.7 % Critically high 43.0- 75.0 [facility] Comment on above: Performed By: #### C BC #### [facility] [address] [place] [address] Dr. Ashlie Hills Platelet mean volume (Bld) [ Entitic vol] 12.6 fL Normal 9.5-13.[address] [facility] Comment on above: Performed By: #### C BC #### [facility] [address] [place] [address] Dr. Ashlie Hills PLT 133 103/ul Critically low 150-450 [facility] Comment on above: Performed By: #### C BC #### [facility] [address] [place] [address] Dr. Ashlie Hills RBC 5.17 106/ul Normal 4.20-5.40 [facility] Comment on above: Performed By: #### C BC #### [facility] [address] [place] [address] Dr. Ashlie Hills WBC 13.6 103/ul Critically high 4.0-11.0 [facility] Comment on above: Performed By: #### C BC #### [facility] [address] [place] [address] Dr. Ashlie Hills MAGNESIUMon 12-06-2022 Magnesium [Mass/Vol] 2.2 mg/dL Normal 1.8-2.4 [facility] Comment on above: Performed By: #### I NFLUAB #### [facility] [address] [place] [address] Dr. Ashlie Hills POINT OF CARE GLUCOSEon 11-08 Glucose [Mass/Vol] 340 mg/dL Critically high -106 [facility] Comment on above: Performed By: #### P OCGLUC #### [facility] [address] [place] [address] Dr. Ashlie Hills Glucose [Mass/Vol] 276 mg/dL Critically high [facility]106 [facility] Comment on above: Performed By: #### C BC #### [facility] [address] [place] [address] Dr. Ashlie Hills Glucose [Mass/Vol] 333 mg/dL Critically high [facility]106 [facility] Comment on above: Performed By: #### C BC #### [facility] [address] [place] [address] Dr. Ashlie Hills PROF CHEM 8 (BAS METB)on Anion gap [Moles/Vol] 10.9 mmol/L Normal [facility] Comment on above: Performed By: #### I NFLUAB #### [facility] [address] [place] [address] Dr. Ashlie Hills Calcium [Mass/Vol] 9.3 mg/dL Normal 8.5-10.1 [facility] Comment on above: Performed By: #### I NFLUAB #### [facility] [address] [place] [address] Dr. Ashlie Hills Chloride [Moles/Vol] 103 mmol/L Normal 98-107 [facility] Comment on above: Performed By: #### I NFLUAB #### [facility] [address] [place] [address] Dr. Ashlie Hills CO2 [Moles/Vol] 31.2 mmol/L Normal 21.0-32.0 [facility] Comment on above: Performed By: #### I NFLUAB #### [facility] [address] [place] [address] Dr. Ashlie Hills Creatinine [Mass/Vol] 0.96 mg/dL Normal 0.55-1.02 [facility] Comment on above: Performed By: #### I NFLUAB #### [facility] [address] [address] [address] Ashlie Hills EGFR-AF KITTITIAN >60 Normal >=60 [facility] Comment on above: Performed By: #### I NFLUAB #### [facility] [address] [place] [address] Dr. Ashlie Hills EGFR-NON AF KITTITIAN >60 Normal >=60 [facility] Comment on above: Performed By: #### I NFLUAB #### [facility] [address] [place] [address] Dr. Ashlie Hills Glucose [Mass/Vol] 288 mg/dL Critically high 74-106 [facility] Comment on above: Performed By: #### I NFLUAB #### [facility] [address] [place] [address] Dr. Ashlie Hills Potassium [Moles/Vol] 5.1 mmol/L Normal 3.5-5.1 [facility] Comment on above: Performed By: #### I NFLUAB #### [facility] [address] [place] [address] Dr. Ashlie Hills Sodium [Moles/Vol] 140 mmol/L Normal 136-145 [facility] Comment on above: Performed By: #### I NFLUAB #### [facility] [address] [place] [address] Dr. Ashlie Hills Urea nitrogen [Mass/Vol] 30.0 mg/dL Critically high 7.0-18 .0 [facility] Comment on above: Performed By: #### I NFLUAB #### [facility] [address] [place] [address] Dr. Ashlie Hills Urea nitrogen/Creatinine [Mass ratio] 31.2 mg/mg Normal [facility] Comment on above: Performed By: #### I NFLUAB #### [facility] [address] [place] [address] Dr. Ashlie Hills CBC AUTO DIFFon 12-05-2022 BASO # 0.0 103/ul Normal 0.0-0.1 [facility] Comment on above: Performed By: #### C BC #### [facility] [address] [place] [address] Dr. Ashlie Hills Basophils/100 WBC (Bld) 0.4 % Normal 0.2-2.0 [facility] Comment on above: Performed By: #### C BC #### [facility] [address] [place] [address] Dr. Ashlie Hills EO # 0.0 103/ul Normal 0.0-0.7 [facility] Comment on above: Performed By: #### C BC #### [facility] [address] [place] [address] Dr. Ashlie Hills Eosinophils/100 WBC (Bld) 0.0 % Critically low 0.9-7. 0 [facility] Comment on above: Performed By: #### C BC #### [facility] [address] [place] [address] Dr. Ashlie Hills Erythrocyte distribution wid th (RBC) [Ratio] 14.8 % Normal 11.0-15.0 [facility] Comment on above: Performed By: #### C BC #### [facility] [address] [place] [address] Dr. Ashlie Hills Hematocrit (Bld) [Volume fraction] 49.9 % Critically high 36.0-48.[address] [facility] Comment on above: Performed By: #### C BC #### [facility] [address] [place] [address] Dr. Ashlie Hills Hemoglobin (Bld) [Mass/Vol] 15.7 g/dL Normal 12.0-16. 0 [facility] Comment on above: Performed By: #### C BC #### [facility] [address] [address] [address] Ashlie Hills IG # 0.04 10e3/ul Critically high 0.00-0.03 [facility] Comment on above: Performed By: #### C BC #### [facility] [address] [address] [address] Ashlie Hills IG % 0.5 % Normal 0.0-0.5 [facility] Comment on above: Performed By: #### C BC #### [facility] [address] [place] [address] Dr. Ashlie Hills LYMPH # 1.1 103/ul Critically low 1.2-3.8 [facility] Comment on above: Performed By: #### C BC #### [facility] [address] [place] [address] Dr. Ashlie Hills Lymphocytes/100 WBC (Bld) 12.7 % Critically low 20.5-6 0.0 [facility] Comment on above: Performed By: #### C BC #### [facility] [address] [place] [address] Dr. Ashlie Hills MANUAL DIFF REQ NO Normal [facility] Comment on above: Performed By: #### C BC #### [facility] [address] [place] [address] Dr. Ashlie Hills MCH (RBC) [Entitic mass] 28.1 pg Normal 26.7-34.0 [facility] Comment on above: Performed By: #### C BC #### [facility] [address] [place] [address] Dr. Ashlie Hills MCHC (RBC) [Mass/Vol] 31.5 g/dL Normal 29.9-35.2 [facility] Comment on above: Performed By: #### C BC #### [facility] [address] [place] [address] Dr. Ashlie Hills MCV (RBC) [Entitic vol] 89.3 fL Normal 81.0-99.0 [facility] Comment on above: Performed By: #### C BC #### [facility] [address] [address] [address] Ashlie Hills MONO # 0.1 103/ul Critically low 0.3-0.8 [facility] Comment on above: Performed By: #### C BC #### [facility] [address] [place] [address] Dr. Ashlie Hills Monocytes/100 WBC (Bld) 1.3 % Critically low 1.7-12.0 [facility] Comment on above: Performed By: #### C BC #### [facility] [address] [place] [address] Dr. Ashlie Hills NEUT # 7.2 103/ul Critically high 1.4-6.5 [facility] Comment on above: Performed By: #### C BC #### [facility] [address] [place] [address] Dr. Ashlie Hills Neutrophils/100 WBC (Bld) 85.1 % Critically high 43.0- 75.0 [facility] Comment on above: Performed By: #### C BC #### [facility] [address] [place] [address] Dr. Ashlie Hills Platelet mean volume (Bld) [ Entitic vol] 12.2 fL Normal 9.5-13.[address] [facility] Comment on above: Performed By: #### C BC #### [facility] [address] [place] [address] Dr. Ashlie Hills PLT 116 103/ul Critically low 150-450 [facility] Comment on above: Performed By: #### C BC #### [facility] [address] [place] [address] Dr. Ashlie Hills RBC 5.59 106/ul Critically high 4.20-5.40 [facility] Comment on above: Performed By: #### C BC #### [facility] [address] [place] [address] Dr. Ashlie Hills WBC 8.5 103/ul Normal 4.0-11.0 [facility] Comment on above: Performed By: #### C BC #### [facility] [address] [place] [address] Dr. Ahslie Hills CTA CHEST WO W CONon 023 CTA CHEST WO W CON EXAMINATION: CTA LAMIN ST WO W CON, 12/04/2022 7:57 PM PDT HISTORY: SHORTNESS OF BREATH COMPARISON: CT chest 06/21/2019. TECHNIQUE: CT angiogram of the chest (per pulmonary embolus protocol) with contrast. Coronal and sagittal 3D MIP rendered images were created. ALARA Utilization: Dose reduction technique was used including one or more of the following: automated exposure control, iterative reconstruction technique, adjustment of mA and kV according patient size and/or scan done according to ALARA (exposure dose as low as reasonably achievable). FINDINGS: CTA: Dilated pulmonary trunk suggesting pulmonary hypertension. No evidence of pulmonary emboli. LUNGS: Tree-in-bud nodularity scattered throughout the left upper lobe. Mild patchy groundglass opacity in the left lower lobe. AIRWAYS: Mild peribronchial thickening. PLEURA: No significant finding. MEDIASTINUM AND ZANDRA: Mildly enlarged bilateral hilar and mediastinal lymph nodes, likely mildly increased from prior exam allowing for differences in technique. HEART AND PERICARDIUM: No significant finding. VESSELS: As above. CHEST WALL: No significant finding. NECK BASE: No significant finding. UPPER ABDOMEN: Left adrenal myelolipoma has increased in size, measuring 3.6 cm.. BONES: No significant finding. IMPRESSION: No evidence of pulmonary emboli. Infectious/inflammatory changes, predominantly in the left upper lobe, with mild involvement in the left lower lobe. Mild peribronchial thickening. Mildly enlarged mediastinal/hilar lymph nodes, likely reactive. Increase in size of now 3.6 cm left adrenal myelolipoma. Electronically authenticated by: HATTIE GOFF Date: 2022-12-05 01:52 Normal [facility] MAGNESIUMon 12-05-2022 Magnesium [Mass/Vol] 2.1 mg/dL Normal 1.8-2.4 [facility] Comment on above: Performed By: #### P OCGLUC #### [facility] [address] [address] [address] Ashlie Hills POINT OF CARE GLUCOSEon 11-08 Glucose [Mass/Vol] 293 mg/dL Critically high 74-106 [facility] Comment on above: Performed By: #### P OCGLUC #### [facility] [address] [address] [address] Ashlie Hills Glucose [Mass/Vol] 269 mg/dL Critically high 74-106 [facility] Comment on above: Performed By: #### P OCGLUC #### [facility] [address] [address] [address] Ashlie Hills Glucose [Mass/Vol] 223 mg/dL Critically high 74-106 [facility] Comment on above: Performed By: #### C VDAGS #### [facility] [address] [address] [address] Ashlie Hills PROF CHEM 8 (BAS METB)on Anion gap [Moles/Vol] 11.6 mmol/L Normal [facility] Comment on above: Performed By: #### P OCGLUC #### [facility] [address] [place] [address] Dr. Ashlie Hills Calcium [Mass/Vol] 9.2 mg/dL Normal 8.5-10.1 [facility] Comment on above: Performed By: #### P OCGLUC #### [facility] [address] [address] [address] Ashlie Hills Chloride [Moles/Vol] 102 mmol/L Normal 98-107 [facility] Comment on above: Performed By: #### P OCGLUC #### [facility] [address] [place] [address] Dr. Ashlie Hills CO2 [Moles/Vol] 28.7 mmol/L Normal 21.0-32.0 [facility] Comment on above: Performed By: #### P OCGLUC #### [facility] [address] [place] [address] Dr. Ashlie Hills Creatinine [Mass/Vol] 1.04 mg/dL Critically high 0.55-1.02 [facility] Comment on above: Performed By: #### P OCGLUC #### [facility] [address] [place] [address] Dr. Ashlie Hills EGFR-AF KITTITIAN >60 Normal >=60 [facility] Comment on above: Performed By: #### P OCGLUC #### [facility] [address] [address] [address] Ashlie Hills EGFR-NON AF KITTITIAN 56 mL/min/1.73m2 Critically low >=60 [facility] Comment on above: Performed By: #### P OCGLUC #### [facility] [address] [address] [address] Ashlie Hills Glucose [Mass/Vol] 231 mg/dL Critically high 74-106 [facility] Comment on above: Performed By: #### P OCGLUC #### [facility] [address] [address] [address] Ashlie Hills Potassium [Moles/Vol] 4.3 mmol/L Normal 3.5-5.1 [facility] Comment on above: Performed By: #### P OCGLUC #### [facility] [address] [address] [address] Ashlie Hills Sodium [Moles/Vol] 138 mmol/L Normal 136-145 [facility] Comment on above: Performed By: #### P OCGLUC #### [facility] [address] [address] [address] Ashlie Hills Urea nitrogen [Mass/Vol] 17.0 mg/dL Normal 7.0-18.0 [facility] Comment on above: Performed By: #### P OCGLUC #### [facility] [address] [address] [address] Ashlie Hills Urea nitrogen/Creatinine [Mass ratio] 16.3 mg/mg Normal [facility] Comment on above: Performed By: #### P OCGLUC #### [facility] [address] [address] [address] Ashlie Hills RESPIRATORY PANEL PLUSon Adenovirus Not detected Normal NOT DETECTED [facility] Comment on above: Performed By: #### C VDAGS #### [facility] [address] [address] [address] Ashlie Hills B. Parapertusis Not detected Normal NOT DETECTED [facility] Comment on above: Performed By: #### C VDAGS #### [facility] [address] [place] [address] Dr. Ashlie Max Pertussis Not detected Normal NOT DETECTED [facility] Comment on above: Performed By: #### C VDAGS #### [facility] [address] [place] [address] Dr. Ashlie Hills Chlamydia Pneumoniae Not detected Normal NOT DETECTED [facility] Comment on above: Performed By: #### C VDAGS #### [facility] [address] [place] [address] Dr. Ashlie Hills Coronavirus 229E Not detected Normal NOT DETECTED [facility] Comment on above: Performed By: #### C VDAGS #### [facility] [address] [place] [address] Dr. Ashlie Hills Coronavirus HKU1 Not detected Normal NOT DETECTED [facility] Comment on above: Performed By: #### C VDAGS #### [facility] [address] [place] [address] Dr. Ashlie Hills Coronavirus NL63 Not detected Normal NOT DETECTED [facility] Comment on above: Performed By: #### C VDAGS #### [facility] [address] [place] [address] Dr. Ashlie Hills Coronavirus OC43 Not detected Normal NOT DETECTED [facility] Comment on above: Performed By: #### C VDAGS #### [facility] [address] [place] [address] Dr. Ashlie Hills Influenza A H1 Not detected Normal NOT DETECTED [facility] Comment on above: Performed By: #### C VDAGS #### [facility] [address] [place] [address] Dr. Ashlie Hills Influenza A H1 2009 Not detected Normal NOT DETECTED [facility] Comment on above: Performed By: #### C VDAGS #### [facility] [address] [place] [address] Dr. Ashlie Hills Influenza A H3 Not detected Normal NOT DETECTED [facility] Comment on above: Performed By: #### C VDAGS #### [facility] [address] [place] [address] Dr. Ashlie Hills Influenza B Not detected Normal NOT DETECTED [facility] Comment on above: Performed By: #### C VDAGS #### [facility] [address] [address] [address] Ashlie Hills Metapneumovirus Not detected Normal NOT DETECTED [facility] Comment on above: Performed By: #### C VDAGS #### [facility] [address] [address] [address] Ashlie Hills Mycoplas. Pneumoniae Not detected Normal NOT DETECTED [facility] Comment on above: Performed By: #### C VDAGS #### [facility] [address] [place] [address] Dr. Ashlie Hills Parainfluenza 1 Not detected Normal NOT DETECTED [facility] Comment on above: Performed By: #### C VDAGS #### [facility] [address] [place] [address] Dr. Ashlie Hills Parainfluenza 2 Not detected Normal NOT DETECTED [facility] Comment on above: Performed By: #### C VDAGS #### [facility] [address] [place] [address] Dr. Ashlie Hills Parainfluenza 3 Detected Abnormal NOT DETECTED [facility] Comment on above: Performed By: #### C VDAGS #### [facility] [address] [place] [address] Dr. Ashlie Hills Parainfluenza 4 Not detected Normal NOT DETECTED [facility] Comment on above: Performed By: #### C VDAGS #### [facility] [address] [place] [address] Dr. Ashlie Hills Rhino/Enterovirus Not detected Normal NOT DETECTED [facility] Comment on above: Performed By: #### C VDAGS #### [facility] [address] [place] [address] Dr. Ashlie DE PAZ Header 1 RESPIRATORY PANEL: VIRUSES Normal [facility] Comment on above: Performed By: #### C VDAGS #### [facility] [address] [place] [address] Dr. Yilan Hills RP2 Header 2 RESPIRATORY PANEL: BACTERIA Normal [facility] Comment on above: Performed By: #### C VDAGS #### [facility] [address] [place] [address] Dr. Ashlie Hills RSV Not detected Normal NOT DETECTED [facility] Comment on above: Performed By: #### C VDAGS #### [facility] [address] [place] [address] Dr. Ashlie Hills SARS-CoV-2 (COVID-19) RNA MADDY+probe Ql (Unsp spec) Not detected Normal NOT DETECTED [facility] Comment on above: Performed By: #### C VDAGS #### [facility] [address] [place] [address] Dr. Ashlie Hills XR CHEST 1 Von 12-05-2022 XR CHEST 1 V EXAMINATION: XR CHES T 1 V HISTORY: Shortness of breath COMPARISON: Chest x-ray 08/09/2021 TECHNIQUE: Portable chest FINDINGS: The lung parenchyma is free of consolidation or infiltrate. No pneumothorax or pleural effusion. The cardiac, mediastinal and hilar contours are normal. The visualized osseous structures exhibit no gross abnormality. IMPRESSION: No acute cardiopulmonary abnormality. Electronically authenticated by: MARYANNE POWER Date: 2022-12-04 22:23 Normal [facility] BLOOD GASES BTYon 12-04-2022 02 MODE ROOM AIR Normal [facility] Comment on above: Performed By: #### C BC #### [facility] [address] [place] [address] Dr. Ashlie Hills ALLENS TEST Positive Normal [facility] Comment on above: Performed By: #### C BC #### [facility] [address] [place] [address] Dr. Ashlie Hills Base excess Calc (Bld) [Moles/Vol] 5.4 mmol/L Critically high -2.0-2.0 [facility] Comment on above: Performed By: #### C BC #### [facility] [address] [place] [address] Dr. Ashlie Hills BIPAP PRESSURE Normal [facility] Comment on above: Performed By: #### C BC #### [facility] [address] [address] [address] Ashlie Hills CPAP Normal [facility] Comment on above: Performed By: #### C BC #### [facility] [address] [place] [address] Dr. Ashlie Hills FIO2 Normal [facility] Comment on above: Performed By: #### C BC #### [facility] [address] [address] [address] Ashlie Hills HCO3 (Bld) [Moles/Vol] 30.8 mmol/L Critically high 22.0-26 .0 [facility] Comment on above: Performed By: #### C BC #### [facility] [address] [place] [address] Dr. Ashlie Hills LPM Normal [facility] Comment on above: Performed By: #### C BC #### [facility] [address] [place] [address] Dr. Ashlie Hills MINUTE VOLUME Normal [facility] Comment on above: Performed By: #### C BC #### [facility] [address] [place] [address] Dr. Ashlie Hills Oxygen (Bld) [Partial pressure] 46.3 mm[Hg] Critically low 80.0-100.0 [facility] Comment on above: Performed By: #### C BC #### [facility] [address] [place] [address] Dr. Ashlie Hills Oxygen saturation in Blood 83.9 % Critically low 95.0- 100.0 [facility] Comment on above: Performed By: #### C BC #### [facility] [address] [place] [address] Dr. Ashlie Hills PCO2 54.2 mmHg Critically high 35.0-45.0 [facility] Comment on above: Performed By: #### C BC #### [facility] [address] [place] [address] Dr. Ashlie Hills PEEP Normal The [facility] Comment on above: Performed By: #### C BC #### [facility] [address] [place] [address] Dr. Ashlie Hills pH (Bld) 7.363 [pH] Normal 7.350-7.450 [facility] Comment on above: Performed By: #### C BC #### [facility] [address] [place] [address] Dr. Ashlie Hills PIP Normal [facility] Comment on above: Performed By: #### C BC #### [facility] [address] [place] [address] Dr. Ashlie Hills PS Normal [facility] Comment on above: Performed By: #### C BC #### [facility] [address] [place] [address] Dr. Ashlie Hills PUNCTURE SITE LR Normal [facility] Comment on above: Performed By: #### C BC #### [facility] [address] [place] [address] Dr. Ashlie Hills RATE Normal [facility] Comment on above: Performed By: #### C BC #### [facility] [address] [place] [address] Dr. Ashlie Hills VENT MODE Normal [facility] Comment on above: Performed By: #### C BC #### [facility] [address] [place] [address] Dr. Ashlie Hills [place] Normal [facility] Comment on above: Performed By: #### C BC #### [facility] [address] [place] [address] Dr. Ashlie Hills BNPon 12-04-2022 Natriuretic peptide B (Bld) [Mass/Vol] 76.0 pg/mL Normal <=900.0 The [facility] pital Comment on above: Performed By: #### P OCGLUC #### [facility] [address] [place] [address] Dr. Ashlie Hills CBC AUTO DIFFon 12-04-2022 BASO # 0.1 103/ul Normal 0.0-0.1 [facility] Comment on above: Performed By: #### C BC #### [facility] [address] [place] [address] Dr. Ashlie Hills Basophils/100 WBC (Bld) 0.6 % Normal 0.2-2.0 [facility] Comment on above: Performed By: #### C BC #### [facility] [address] [place] [address] Dr. Ashlie Hills EO # 0.2 103/ul Normal 0.0-0.7 [facility] Comment on above: Performed By: #### C BC #### [facility] [address] [place] [address] Dr. Ashlie Hills Eosinophils/100 WBC (Bld) 1.9 % Normal 0.9-7.0 [facility] Comment on above: Performed By: #### C BC #### [facility] [address] [place] [address] Dr. Ashlie Hills Erythrocyte distribution wid th (RBC) [Ratio] 15.0 % Normal 11.0-15.[address] [facility] Comment on above: Performed By: #### C BC #### [facility] [address] [place] [address] Dr. Ashlie Hills Hematocrit (Bld) [Volume fraction] 49.1 % Critically high 36.0-48.[address] [facility] Comment on above: Performed By: #### C BC #### [facility] [address] [place] [address] Dr. Ashlie Hills Hemoglobin (Bld) [Mass/Vol] 15.6 g/dL Normal 12.0-16. 0 [facility] Comment on above: Performed By: #### C BC #### [facility] [address] [place] [address] Dr. Ashlie Hills IG # 0.02 10e3/ul Normal 0.00-0.03 [facility] Comment on above: Performed By: #### C BC #### [facility] [address] [place] [address] Dr. Ashlie Hills IG % 0.2 % Normal 0.0-0.5 The [facility] ostal Comment on above: Performed By: #### C BC #### [facility] [address] [address] [address] Ashlie Hills LYMPH # 2.8 103/ul Normal 1.2-3.8 [facility] Comment on above: Performed By: #### C BC #### [facility] [address] [place] [address] Dr. Ashlie Hills Lymphocytes/100 WBC (Bld) 29.9 % Normal 20.5-60.0 [facility] Comment on above: Performed By: #### C BC #### [facility] [address] [place] [address] Dr. Ashlie Hills MANUAL DIFF REQ NO Normal [facility] Comment on above: Performed By: #### C BC #### [facility] [address] [place] [address] Dr. Ashlie Hills MCH (RBC) [Entitic mass] 28.5 pg Normal 26.7-34.0 [facility] Comment on above: Performed By: #### C BC #### [facility] [address] [place] [address] Dr. Ashlie Hills MCHC (RBC) [Mass/Vol] 31.8 g/dL Normal 29.9-35.2 [facility] Comment on above: Performed By: #### C BC #### [facility] [address] [place] [address] Dr. Ashlie Hills MCV (RBC) [Entitic vol] 89.8 fL Normal 81.0-99.0 [facility] Comment on above: Performed By: #### C BC #### [facility] [address] [place] [address] Dr. Ashlie Hills MONO # 1.0 103/ul Critically high 0.3-0.8 [facility] Comment on above: Performed By: #### C BC #### [facility] [address] [place] [address] Dr. Ashlie Hills Monocytes/100 WBC (Bld) 10.6 % Normal 1.7-12.0 [facility] Comment on above: Performed By: #### C BC #### [facility] [address] [place] [address] Dr. Ashlie Hills NEUT # 5.3 103/ul Normal 1.4-6.5 [facility] Comment on above: Performed By: #### C BC #### [facility] [address] [place] [address] Dr. Ashlie Hills Neutrophils/100 WBC (Bld) 56.8 % Normal 43.0-75.0 [facility] Comment on above: Performed By: #### C BC #### [facility] [address] [place] [address] Dr. Ashlie Hills Platelet mean volume (Bld) [ Entitic vol] 12.5 fL Normal 9.5-13.[address] [facility] Comment on above: Performed By: #### C BC #### [facility] [address] [place] [address] Dr. Ashlie Hills PLT 109 103/ul Critically low 150-450 [facility] Comment on above: Performed By: #### C BC #### [facility] [address] [place] [address] Dr. Ashlie Hills RBC 5.47 106/ul Critically high 4.20-5.40 [facility] Comment on above: Performed By: #### C BC #### [facility] [address] [place] [address] Dr. Ashlie Hills WBC 9.4 103/ul Normal 4.0-11.0 [facility] Comment on above: Performed By: #### C BC #### [facility] [address] [place] [address] Dr. Ashlie Hills PROF 14(COMP METB)on 023 Albumin [Mass/Vol] 2.9 g/dL Critically low 3.4-5.0 [facility] Comment on above: Performed By: #### C BC #### [facility] [address] [place] [address] Dr. Ashlie Hills Albumin/Globulin [Mass ratio] 0.6 {ratio} Normal [facility] Comment on above: Performed By: #### C BC #### [facility] [address] [address] [address] Ashlie Hills ALP [Catalytic activity/Vol] 64 U/L Normal 46-116 [facility] Comment on above: Performed By: #### C BC #### [facility] [address] [address] [address] Ashlie Hills ALT [Catalytic activity/Vol] 16 U/L Normal 14-59 [facility] Comment on above: Performed By: #### C BC #### [facility] [address] [place] [address] Dr. Ashlie Hills Anion gap [Moles/Vol] 9.6 mmol/L Normal [facility] Comment on above: Performed By: #### C BC #### [facility] [address] [place] [address] Dr. Ashlie Hills AST [Catalytic activity/Vol] 16 U/L Normal 15-37 [facility] Comment on above: Performed By: #### C BC #### [facility] [address] [place] [address] Dr. Ashlie Hills Bilirubin [Mass/Vol] 0.5 mg/dL Normal 0.2-1.0 [facility] Comment on above: Performed By: #### C BC #### [facility] [address] [place] [address] Dr. Ashlie Hills Calcium [Mass/Vol] 8.7 mg/dL Normal 8.5-10.1 [facility] Comment on above: Performed By: #### C BC #### [facility] [address] [place] [address] Dr. Ashlie Hills Chloride [Moles/Vol] 103 mmol/L Normal 98-107 [facility] Comment on above: Performed By: #### C BC #### [facility] [address] [place] [address] Dr. Ashlie Hills CO2 [Moles/Vol] 30.7 mmol/L Normal 21.0-32.0 [facility] Comment on above: Performed By: #### C BC #### [facility] [address] [place] [address] Dr. Ashlie Hills Creatinine [Mass/Vol] 0.96 mg/dL Normal 0.55-1.02 [facility] Comment on above: Performed By: #### C BC #### [facility] [address] [place] [address] Dr. Ashlie Hills EGFR-AF KITTITIAN >60 Normal >=60 [facility] Comment on above: Performed By: #### C BC #### [facility] [address] [address] [address] Ashlie Hills EGFR-NON AF KITTITIAN >60 Normal >=60 [facility] Comment on above: Performed By: #### C BC #### [facility] [address] [place] [address] Dr. Ashlie Hills Globulin (S) [Mass/Vol] 4.7 g/dL Normal [facility] Comment on above: Performed By: #### C BC #### [facility] [address] [place] [address] Dr. Ashlie Hills Glucose [Mass/Vol] 170 mg/dL Critically high 74-106 [facility] Comment on above: Performed By: #### C BC #### [facility] [address] [place] [address] Dr. Ashlie Hills Potassium [Moles/Vol] 4.3 mmol/L Normal 3.5-5.1 [facility] Comment on above: Performed By: #### C BC #### [facility] [address] [place] [address] Dr. Ashlie Hills Protein [Mass/Vol] 7.6 g/dL Normal 6.4-8.2 [facility] Comment on above: Performed By: #### C BC #### [facility] [address] [place] [address] Dr. Ashlie Hills Sodium [Moles/Vol] 139 mmol/L Normal 136-145 [facility] Comment on above: Performed By: #### C BC #### [facility] [address] [place] [address] Dr. Ashlie Hills Urea nitrogen [Mass/Vol] 16.0 mg/dL Normal 7.0-18.0 [facility] Comment on above: Performed By: #### C BC #### [facility] [address] [place] [address] Dr. Ashlie Hills Urea nitrogen/Creatinine [Mass ratio] 16.7 mg/mg Normal [facility] Comment on above: Performed By: #### C BC #### [facility] [address] [place] [address] Dr. Ashlie Hills SYMPTOMATIC COVID-19 ANTIGEN on 12-04-2022 EUA Statement SEE BELOW Normal [facility] Comment on above: Result Comment: This test has not been FDA cleared or approved, but has been authorized by the FDA under an Emergency Use Authorization (EUA) for use by authorized laboratories certified under CLIA that meet the requirements to perform moderate or high complexity testing. This test has been authorized only for the detection of proteins from SARS-CoV-2, not for any other viruses or pathogens. The emergency use of this test is authorized for the duration of the declaration that circumstances exist justifying the authorization of emergency use of in vitro diagnostic tests for detection and/or diagnosis of Covid-19 under section 564(b)(1) of the Act, 21 U.S.C. 360bbb-3(b)(1), unless the declaration is terminated or authorization is revoked sooner. Performed By: #### C VDAGS #### [facility] [address] [place] [address] Dr. Ashlie Hills SARS-CoV-2 (COVID-19) RNA NA A+probe Ql (Unsp spec) Negative Normal NEGATIVE [facility] Comment on above: Performed By: #### C VDAGS #### [facility] [address] [place] [address] Dr. Ashlie Hills TROPONIN, HIGH SENSITIVITYon 12-04-2022 HSTROP 8.9 pg/mL Normal 4.0-51.3 [facility] Comment on above: Result Comment: CUT- OFF POINTS HAVE BEEN ESTABLISHED BASED ON THE FOURTH UNIVERSAL DEFINITIONS OF MYOCARDIAL INFARCTION. THE UPPER REFERENCE LIMIT (URL) OF TROPONIN, DEFINED THE 99TH PERCENTILE OF cTnI DISTRIBUTION IN A REFERENCE POPULATION, HAS BEEN CONFIRMED THE DECISION THRESHOLD FOR [place] DIAGNOSIS. Performed By: #### P OCGLUC #### [facility] [address] [place] [address] Dr. Ashlie Hills MICROALBUMIN, RAND URon 11-06 mALB 35.8 mg/dL Critically high <=30.0 [facility] Comment on above: Performed By: #### C VDAGS #### [facility] [address] [place] [address] Dr. Ashlie Hills UA RANDOM W/MICROSCOPICon BACTERIA NONE SEEN Normal NONE SEEN [facility] Comment on above: Performed By: #### C VDAGS #### [facility] [address] [place] [address] Dr. Ashlie Hills Bilirubin Ql (U) Negative Normal NEGATIVE [facility] Comment on above: Performed By: #### C VDAGS #### [facility] [address] [place] [address] Dr. Ashlie Hills CAST SEEN Abnormal NONE SEEN [facility] Comment on above: Performed By: #### C VDAGS #### [facility] [address] [place] [address] Dr. Ashlie Hills Clarity (U) CLEAR Normal CLEAR [facility] Comment on above: Performed By: #### C VDAGS #### [facility] [address] [place] [address] Dr. Ashlie Hills Color (U) YELLOW Normal YELLOW [facility] Comment on above: Performed By: #### C VDAGS #### [facility] [address] [place] [address] Dr. Ashlie Hills Crystals LM Nom (Urine sed) NONE SEEN Normal NONE SEE N [facility] Comment on above: Performed By: #### C VDAGS #### [facility] [address] [place] [address] Dr. Ashlie Hills Epithelial cells LM Ql (Urin e sed) MODERATE Abnormal NONE SEEN /RARE [facility] Comment on above: Performed By: #### C VDAGS #### [facility] [address] [place] [address] Dr. Ashlie Hills Glucose Ql (U) Negative Normal NEGATIVE [facility] Comment on above: Performed By: #### C VDAGS #### [facility] [address] [place] [address] Dr. Ashlie Hills Hemoglobin Ql (U) TRACE-INTACT Abnormal NEGATIVE [facility] Comment on above: Performed By: #### C VDAGS #### [facility] [address] [place] [address] Dr. Ashlie Hills Ketones Ql (U) Negative Normal NEGATIVE [facility] Comment on above: Performed By: #### C VDAGS #### [facility] [address] [place] [address] Dr. Ashlie Hills LEUKOCYTES Negative Normal NEGATIVE [facility] Comment on above: Performed By: #### C VDAGS #### [facility] [address] [place] [address] Dr. Ashlie Hills MUCOUS NONE SEEN Normal NONE SEEN [facility] Comment on above: Performed By: #### C VDAGS #### [facility] [address] [place] [address] Dr. Ashlie Hills Nitrite Ql (U) Negative Normal NEGATIVE [facility] Comment on above: Performed By: #### C VDAGS #### [facility] [address] [place] [address] Dr. Ashlie Hills pH (U) 5.0 [pH] Normal 5-9 [facility] Comment on above: Performed By: #### C VDAGS #### [facility] [address] [place] [address] Dr. Ashlie Hills RBC 0-2 Normal 0-2 [facility] Comment on above: Performed By: #### C VDAGS #### [facility] [address] [place] [address] Dr. Ashlie Hills SPEC GRAVITY 1.030 Abnormal 1.005-<=1.025 [facility] Comment on above: Performed By: #### C VDAGS #### [facility] [address] [place] [address] Dr. Ashlie Hills UA PROTEIN 100 mg/dl Abnormal NEGATIVE/ TRACE [facility] Comment on above: Performed By: #### C VDAGS #### [facility] [address] [place] [address] Dr. Ashlie Hills Urobilinogen Qn (U) 0.2 {Little'U}/dL Normal 0.2 - 1. 0 [facility] Comment on above: Performed By: #### C VDAGS #### [facility] [address] [place] [address] Dr. Ashlie Hills WBC NONE SEEN Normal NONE SEEN [facility] Comment on above: Performed By: #### C VDAGS #### [facility] [address] [place] [address] Dr. Ashlie Hills CBC AUTO DIFFon 11-22-2022 BASO # 0.0 103/ul Normal 0.0-0.1 [facility] Comment on above: Performed By: #### C BC #### [facility] [address] [place] [address] Dr. Ashlie Hills Basophils/100 WBC (Bld) 0.3 % Normal 0.2-2.0 [facility] Comment on above: Performed By: #### C BC #### [facility] [address] [place] [address] Dr. Ashlie Hills EO # 0.4 103/ul Normal 0.0-0.7 [facility] Comment on above: Performed By: #### C BC #### [facility] [address] [place] [address] Dr. Ashlie Hills Eosinophils/100 WBC (Bld) 3.0 % Normal 0.9-7.0 [facility] Comment on above: Performed By: #### C BC #### [facility] [address] [place] [address] Dr. Ashlie Hills Erythrocyte distribution wid th (RBC) [Ratio] 15.3 % Critically high 11.0-15.0 [facility] Comment on above: Performed By: #### C BC #### [facility] [address] [address] [address] Ashlie Hills Hematocrit (Bld) [Volume fraction] 52.4 % Critically high 36.0-48.0 [facility] Comment on above: Performed By: #### C BC #### [facility] [address] [place] [address] Dr. Ashlie Hills Hemoglobin (Bld) [Mass/Vol] 16.8 g/dL Critically high 12. 0-16.0 [facility] Comment on above: Performed By: #### C BC #### [facility] [address] [place] [address] Dr. Ashlie Hills IG # 0.04 10e3/ul Critically high 0.00-0.03 [facility] Comment on above: Performed By: #### C BC #### [facility] [address] [place] [address] Dr. Ashlie Hills IG % 0.3 % Normal 0.0-0.5 [facility] Comment on above: Performed By: #### C BC #### [facility] [address] [place] [address] Dr. Ashlie Hills LYMPH # 4.5 103/ul Critically high 1.2-3.8 [facility] Comment on above: Performed By: #### C BC #### [facility] [address] [place] [address] Dr. Ashlie Hills Lymphocytes/100 WBC (Bld) 33.2 % Normal 20.5-60.0 [facility] Comment on above: Performed By: #### C BC #### [facility] [address] [place] [address] Dr. Ashlie Hills MANUAL DIFF REQ NO Normal [facility] Comment on above: Performed By: #### C BC #### [facility] [address] [place] [address] Dr. Ashlie Hills MCH (RBC) [Entitic mass] 28.0 pg Normal 26.7-34.0 [facility] Comment on above: Performed By: #### C BC #### [facility] [address] [address] [address] Ashlie Hills MCHC (RBC) [Mass/Vol] 32.1 g/dL Normal 29.9-35.2 [facility] Comment on above: Performed By: #### C BC #### [facility] [address] [place] [address] Dr. Ashlie Hills MCV (RBC) [Entitic vol] 87.3 fL Normal 81.0-99.0 [facility] Comment on above: Performed By: #### C BC #### [facility] [address] [place] [address] Dr. Ashlie Hills MONO # 0.8 103/ul Normal 0.3-0.8 [facility] Comment on above: Performed By: #### C BC #### [facility] [address] [place] [address] Dr. Ashlie Hills Monocytes/100 WBC (Bld) 5.7 % Normal 1.7-12.0 [facility] Comment on above: Performed By: #### C BC #### [facility] [address] [place] [address] Dr. Ashlie Hills NEUT # 7.8 103/ul Critically high 1.4-6.5 [facility] Comment on above: Performed By: #### C BC #### [facility] [address] [place] [address] Dr. Ashlie Hills Neutrophils/100 WBC (Bld) 57.5 % Normal 43.0-75.0 [facility] Comment on above: Performed By: #### C BC #### [facility] [address] [place] [address] Dr. Ashlie Hills Platelet mean volume (Bld) [ Entitic vol] 12.0 fL Normal 9.5-13.5 [facility] Comment on above: Performed By: #### C BC #### [facility] [address] [place] [address] Dr. Ashlie Hills PLT 152 103/ul Normal 150-450 [facility] Comment on above: Performed By: #### C BC #### [facility] [address] [address] [address] Ashlie Hills RBC 6.00 106/ul Critically high 4.20-5.40 [facility] Comment on above: Performed By: #### C BC #### [facility] [address] [address] [address] Ashlie Hills WBC 13.6 103/ul Critically high 4.0-11.0 [facility] Comment on above: Performed By: #### C BC #### [facility] [address] [place] [address] Dr. Ashlie Hills LIPID PROFILEon 11-22-2022 CHOL-HDL RATIO NORM SEE BELOW Normal [facility] Comment on above: Result Comment: 3.3 - 4.4 LOW RISK 4.4 - 7.1 AVERAGE RISK 7.1 - 11.0 MODERATE RISK >11.0 HIGH RISK Performed By: #### C BC #### [facility] [address] [place] [address] Dr. Ashlie Hills Cholesterol [Mass/Vol] 139 mg/dL Normal <=[address] [facility] Comment on above: Performed By: #### C BC #### [facility] [address] [place] [address] Dr. Ashlie Hills Cholesterol in HDL [Mass/Vol] 35 mg/dL Critically low 40 -60 [facility] Comment on above: Performed By: #### C BC #### [facility] [address] [address] [address] Ashlie Hills Cholesterol in LDL [Mass/Vol] 67.4 mg/dL Normal [facility] Comment on above: Performed By: #### C BC #### [facility] [address] [place] [address] Dr. Ashlie Hills Cholesterol.total/Cholestero l in HDL [Mass ratio] 4.0 {ratio} Normal [facility] Comment on above: Performed By: #### C BC #### [place] [facility] [address] [place] [address] Dr. Ashlie Hills HDL NORMAL > or = 60 mg/dl - LO W CARDIOVASCULAR RISK <40 mg/dl - HIGH CARDIOVASCULAR RISK Normal [facility] Comment on above: Performed By: #### C BC #### [facility] [address] [address] [address] Ashlie Hills LDL CALC NORMAL SEE BELOW Normal [facility] Comment on above: Result Comment: <100 mg/dl OPTIMAL 100 - 129 mg/dl NEAR OR ABOVE OPTIMAL 130 - 159 mg/dl BORDERLINE HIGH 160 - 189 mg/dl HIGH >190 mg/dl VERY HIGH Performed By: #### C BC #### [facility] [address] [address] [address] Ashlie Hills Triglyceride [Mass/Vol] 183 mg/dL Critically high <=150 [facility] Comment on above: Performed By: #### C BC #### [facility] [address] [address] [address] Ashlie Hills VLDL CALC 36.6 mg/dL Normal [facility] Comment on above: Performed By: #### C BC #### [facility] [address] [address] [address] Ashlie Hills MG MAMM SCREEN 3D ALEX CADon 11-22-2022 MG MAMM SCREEN 3D ALEX CAD Patient: MITZI MACIAS Exam Date: 11/22/2022 : 1970 Gender:F Ordering : [facility] Admission #: [id number] Family : Order #: [id number] CLICK HERE TO VIEW EXAM RADIOLOGY REPORT PROCEDURE: MAMMOGRAM SCREENING 3D BILATERAL CAD COMPARISON: MG MAMM SCREEN 3D ALEX CAD, 10/25/2021. MG MAMM SCREEN ALEX W CAD, 08/06/2020. MG MAMM SCREEN ALEX W CAD, 07/08/2019. MG MAMM ALEX SCRN W CAD DIG, 11/06/2014. INDICATIONS: Screening mammography Calculator Name NCI Breast Cancer Risk Assessment Tool 5 Year Breast Cancer Risk 0.70% Lifetime Breast Cancer Risk 5.80% Personal Breast Cancer No Personal Ovarian Cancer No Treatments None Family Cancers Grandmother-paternal with ovarian cancer at age 80; Grandfather-paternal with unknown cancer at age 75. LOCATION: [facility] BREAST COMPOSITION: Almost entirely fatty. FINDINGS: DIAGNOSTIC CATEGORY 2--BENIGN FINDING: RIGHT BREAST: No significant suspicious finding. Scattered benign-appearing calcifications are present. No significant change has occurred. LEFT BREAST: No significant suspicious finding. Scattered benign-appearing calcifications are present. No significant change has occurred. RECOMMENDATIONS: ROUTINE MAMMOGRAM AND CLINICAL EVALUATION IN 12 MONTHS. PLEASE NOTE: A NORMAL MAMMOGRAM DOES NOT EXCLUDE THE POSSIBILITY OF BREAST CANCER. A CLINICALLY SUSPICIOUS PALPABLE LUMP SHOULD BE BIOPSIED. Dictated by: Patricia Ivan M.D. on 11/22/2022 at 12:07 Approved by: Patricia Ivan M.D. on 11/22/2022 at 12:09 Normal [facility] l PROF 14(COMP METB)on 023 Albumin [Mass/Vol] 3.0 g/dL Critically low 3.4-5.0 [facility] Comment on above: Performed By: #### C BC #### [facility] [address] [place] [address] Dr. Ashlie Hills Albumin/Globulin [Mass ratio] 0.6 {ratio} Normal [facility] Comment on above: Performed By: #### C BC #### [facility] [address] [place] [address] Dr. Ashlie Hills ALP [Catalytic activity/Vol] 68 U/L Normal 46-116 [facility] Comment on above: Performed By: #### C BC #### [facility] [address] [place] [address] Dr. Ashlie Hills ALT [Catalytic activity/Vol] 14 U/L Normal 14-59 [facility] Comment on above: Performed By: #### C BC #### [facility] [address] [place] [address] Dr. Ashlie Hills Anion gap [Moles/Vol] 12.1 mmol/L Normal [facility] Comment on above: Performed By: #### C BC #### [facility] [address] [place] [address] Dr. Ashlie Hills AST [Catalytic activity/Vol] 9 U/L Critically low 15- 37 [facility] Comment on above: Performed By: #### C BC #### [facility] [address] [address] [address] Ashlie Hills Bilirubin [Mass/Vol] 0.4 mg/dL Normal 0.2-1.0 [facility] Comment on above: Performed By: #### C BC #### [facility] [address] [place] [address] Dr. Ashlie Hills Calcium [Mass/Vol] 9.0 mg/dL Normal 8.5-10.1 [facility] Comment on above: Performed By: #### C BC #### [facility] [address] [place] [address] Dr. Ashlie Hills Chloride [Moles/Vol] 105 mmol/L Normal 98-107 [facility] Comment on above: Performed By: #### C BC #### [facility] [address] [place] [address] Dr. Ashlie Hills CO2 [Moles/Vol] 30.7 mmol/L Normal 21.0-32.0 [facility] Comment on above: Performed By: #### C BC #### [facility] [address] [place] [address] Dr. Ashlie Hills Creatinine [Mass/Vol] 0.77 mg/dL Normal 0.55-1.02 [facility] Comment on above: Performed By: #### C BC #### [facility] [address] [place] [address] Dr. Ashlie Hills EGFR-AF KITTITIAN >60 Normal >=60 [facility] Comment on above: Performed By: #### C BC #### [facility] [address] [place] [address] Dr. Ashlie Hills EGFR-NON AF KITTITIAN >60 Normal >=60 [facility] Comment on above: Performed By: #### C BC #### [facility] [address] [place] [address] Dr. Ashlie Hills Globulin (S) [Mass/Vol] 4.8 g/dL Normal [facility] Comment on above: Performed By: #### C BC #### [facility] [address] [place] [address] Dr. Ashlie Hills Glucose [Mass/Vol] 162 mg/dL Critically high 74-106 [facility] Comment on above: Performed By: #### C BC #### [facility] [address] [address] [address] Ashlie Hills Potassium [Moles/Vol] 3.8 mmol/L Normal 3.5-5.1 [facility] Comment on above: Performed By: #### C BC #### [facility] [address] [place] [address] Dr. Ashlie Hills Protein [Mass/Vol] 7.8 g/dL Normal 6.4-8.2 [facility] Comment on above: Performed By: #### C BC #### [facility] [address] [place] [address] Dr. Ashlie Hills Sodium [Moles/Vol] 144 mmol/L Normal 136-145 [facility] Comment on above: Performed By: #### C BC #### [facility] [address] [place] [address] Dr. Ashlie Hills Urea nitrogen [Mass/Vol] 24.0 mg/dL Critically high 7.0-18 .0 [facility] Comment on above: Performed By: #### C BC #### [facility] [address] [place] [address] Dr. Ashlie Hills Urea nitrogen/Creatinine [Mass ratio] 31.2 mg/mg Normal [facility] Comment on above: Performed By: #### C BC #### [facility] [address] [place] [address] Dr. Ashlie Hills Patient Educationon 11-16-19 23 Patient Education Nephrology Dietary Guidelines to Help Prevent Kidney Stones Kidney stones are deposits of minerals and salts that form inside your kidneys. Your risk of developing kidney stones may be greater depending on your diet, your lifestyle, the medicines you take, and whether you have certain medical conditions. Most people can lower their chances of developing kidney stones by following the instructions below. Your dietitian may give you more specific instructions depending on your overall health and the type of kidney stones you tend to develop. What are tips for following this plan? Reading food labels ? Choose foods with no salt added or low-salt labels. Limit your salt (sodium) intake to less than 1,500 mg a day. ? Choose foods with calcium for each meal and snack. Try to eat about 300 mg of calcium at each meal. Foods that contain 200?500 mg of calcium a serving include: ? 8 oz (237 mL) of milk, siieiuf-hophdiuiswdf-wrzor milk, and calcium-fortifiedfruit juice. Calcium-fortified means that calcium has been added to these drinks. ? 8 oz (237 mL) of kefir, yogurt, and soy yogurt. ? 4 oz (114 g) of tofu. ? 1 oz (28 g) of cheese. ? 1 cup (150 g) of dried figs. ? 1 cup (91 g) of cooked broccoli. ? One 3 oz (85 g) can of sardines or mackerel. Most people need 1,000?1,500 mg of calcium a day. Talk to your dietitian about how much calcium is recommended for you. Shopping ? Buy plenty of fresh fruits and vegetables. Most people do not need to avoid fruits and vegetables, even if these foods contain nutrients that may contribute to kidney stones. ? When shopping for convenience foods, choose: ? Whole pieces of fruit. ? Pre-made salads with dressing on the side. ? Low-fat fruit and yogurt smoothies. ? Avoid buying frozen meals or prepared deli foods. These can be high in sodium. ? Look for foods with live cultures, such as yogurt and kefir. ? Choose high-fiber grains, such as whole-wheat breads, oat bran, and wheat cereals. Cooking ? Do not add salt to food when cooking. Place a salt shaker on the table and allow each person to add his or her own salt to taste. ? Use vegetable protein, such as beans, textured vegetable protein (TVP), or tofu, instead of meat in pasta, casseroles, and soups. Meal planning ? Eat less salt, if told by your dietitian. To do this: ? Avoid eating processed or pre-made food. ? Avoid eating fast food. ? Eat less animal protein, including cheese, meat, poultry, or fish, if told by your dietitian. To do this: ? Limit the number of times you have meat, poultry, fish, or cheese each week. Eat a diet free of meat at least 2 days a week. ? Eat only one serving each day of meat, poultry, fish, or seafood. ? When you prepare animal protein, cut pieces into small portion sizes. For most meat and fish, one serving is about the size of the palm of your hand. ? Eat at least five servings of fresh fruits and vegetables each day. To do this: ? Keep fruits and vegetables on hand for snacks. ? Eat one piece of fruit or a handful of berries with breakfast. ? Have a salad and fruit at lunch. ? Have two kinds of vegetables at dinner. ? Limit foods that are high in a substance called oxalate. These include: ? Spinach (cooked), rhubarb, beets, sweet potatoes, and Guamanian chard. ? Peanuts. ? Potato chips, malaysian fries, and baked potatoes with skin on. ? Nuts and nut products. ? Chocolate. ? If you regularly take a diuretic medicine, make sure to eat at least 1 or 2 servings of fruits or vegetables that are high in potassium each day. These include: ? Avocado. ? Banana. ? Love, prune, carrot, or tomato juice. ? Baked potato. ? Cabbage. ? Beans and split peas. Lifestyle ? Drink enough fluid to keep your urine pale yellow. This is the most important thing you can do. Spread your fluid intake throughout the day. ? If you drink alcohol: ? Limit how much you use to: ? 0?1 drink a day for women who are not . ? 0?2 drinks a day for men. ? Be aware of how much alcohol is in your drink. In the [place] one drink equals one 12 oz bottle of beer (355 mL), one 5 oz glass of wine (148 mL), or one 1? oz glass of hard liquor (44 mL). ? Lose weight if told by your health care provider. Work with your dietitian to find an eating plan and weight loss strategies that work best for you. General information ? Talk to your health care provider and dietitian about taking daily supplements. You may be told the following depending on your health and the cause of your kidney stones: ? Not to take supplements with vitamin C. ? To take a calcium supplement. ? To take a daily probiotic supplement. ? To take other supplements such as magnesium, fish oil, or vitamin B6. ? Take ivbl-rhs-wvwvzlb and prescription medicines only as told by your health care provider. These include supplements. What foods should I limit? Limit your in (more content not included)... Normal [facility] Reminderson 11-15-2022 Reminders - From: Maria Elena Negrete To: SHEA - Fariha Vega; Sent: 11/15/2022 14:23:36 EDT Show up: 04/17/2024 14:23:00 EDT Subject: Schedule CT AP w con Due Date/Time: 05/18/2024 13:23:00 EST Please schedule [address] AP w con for adrenal mass. Normal [facility] Urology Office/Clinic Noteon 11-15-2022 Urology Office/Clinic Note Chief Complaint Pt is here for a 6 month f/u w/CT scan HPI Staff Mitzi is a 52 y/o female here for a 6 month f/u w/CT scan. CT done 07/27/2022 showed slowly enlarging left adrenal gland angiomyolipoma, nephrolithiasis unchanged. Pt saw 02/2022 Dysuria: _denies Incomplete bladder emptying: _denies Hematuria: _denies Frequency: _denies Urgency: _mild Nocturia: _1-2x Stream: _steady Leaking: _yes Post void dripping: _denies Wearing pads/ Depends: _yes, changed 1x a day Urge incontinence: _yes Stress incontinence: _yes Incontinence without Sensory Awareness: _denies Abdominal pain: _denies Flank pain: _denies Sexual complaints: _ History of Present Illness staff HPI reviewed and agree. Tests Reviewed: Reviewed UA. Review of Systems PHQ Score Initial Depression Screen Score: 0 no fever, chills, malaise, myalgia. no rash/lesions. no chest pain, palpitations, or SOB. no abdominal pain, nausea, vomiting. no unilateral calf swelling, redness, pain Physical Exam Vitals & Measurements HT: 67 in HT: 170 cm WT: 160 kg WT: 352 lb BMI: 55.36 General: nontoxic, NAD Mouth: moist mucosa Lungs: normal respiratory effort Cardio: regular rate, good distal perfusion Abdomen: nondistended, no suprapubic distention or tenderness, no CVA tenderness Neurologic: Grossly normal Skin: No rashes or suspicious lesions Assessment/Plan PRW pt. Pt here with today. Pt ambulates via wheelchair. No sample provided for UA today. 1. Adrenal mass 1 cm to 4 cm in diameter (E27.8: Other specified disorders of adrenal gland) CT AP wo con 12/24/21 - Rounded fat containing mass of the left adrenal gland measuring 3.3 x 2.8 cm compatible with adrenal myelolipoma. On 10/21/18, it measured 2.[address] AP w con 07/27/22 [facility] - Slowly enlarging Left adrenal AML currently measures 3.5 x 3.[address] scan with pt, not concerning for malignancy at this time given overall stable/very minor increase in size. Follow up [address] AP w con or sooner if needed. Pt understands and agrees with plan. 2. Kidney stone (N20.0: Calculus of kidney) CT AP wo con 12/24/21 - Punctuate nonobstructing calculus LLP. No hydro. CT AP w con 07/27/22 [facility] - A nonobstructing 1 mm LLP renal calculus, unchanged. More conspicuous on the current exam than on the prior. Reviewed CT scan with pt, passable. Educated pt on dietary modifications for stone prevention. 3. Mixed incontinence (N39.46: Mixed incontinence) Discussed adding med to help with this. Pt does not feel med would be necessary/beneficial at this time. Feels leakage is due to weight. Wears leakage protection, changes once a day. Pt has lost 130 lbs and plans to lose more. then will be getting the excess skin removed. says if leaking persists after that she will contact us for treatment. agree w this plan. 4. Smoker (F17.200: Nicotine dependence, unspecified, uncomplicated) Began smoking at 18 yo. Pt is working on quitting with her . starting chantix this week. Follow-up With When Contact Information SILVIA HOWELL, GAVIOTA Webb, URL [address] [place] [address] Additional Instructions: [address] AP w con Patient Education Dietary Guidelines to Help Prevent Kidney Stones Documentation recorded by the scribe Maria Elena Negrete accurately reflects the services(s) I performed and decisions made by me. Authenticated by Gaviota Vega PA-C on 11/15/2022 14:32:07. IMaria Elena, personally scribed for TALIB García on 11/15/2022 14:21:52. . Problem List/Past Medical History Ongoing Adrenal mass 1 cm to 4 cm in diameter Arthritis Asthma COPD type A Headache Hypertension Kidney stone Left flank pain Mixed incontinence Proteinuria Smoker Type 2 diabetes mellitus Historical No qualifying data Procedure/Surgical History H/O: hysterectomy, Laparoscopic cholecystectomy, Operative procedure on foot or toes. Medications acetaminophen-hydrocodone 325 mg-5 mg oral tablet, Unable to obtain albuterol 0.083% Inh Tracey 3 mL, Unable to obtain amitriptyline 25 mg Tab, Unable to obtain diclofenac sodium 75 mg Oral EC Tab, Unable to obtain DULoxetine 30 mg Cap-EC, Unable to obtain furosemide 20 mg Tab, Unable to obtain Lantus Solostar Pen 100 units/mL subcutaneous solution, Unable to obtain lisinopril 20 mg Tab, Unable to obtain Lyrica, Oral, Unable to obtain meloxicam, Daily, Unable to obtain NovoLog, SubCutaneous, TIDAC, Unable to obtain potassium chloride 10 mEq Cap-ER, Unable to obtain pregabalin 300 mg Cap, Unable to obtain Spiriva Respimat 60 ACT 2.5 mcg/inh inhalation aerosol, Unable to obtain Symbicort 160/4.5 inhalation aerosol with adapter, Unable to obtain Trulicity Pen 4.5 mg/0.5 mL subcutaneous solution, Unable to obtain Allergies No Known Medication Allergies Social History Tobacco 10 or more cigarettes (1/2 pack (more content not included)... Normal [facility] Comment on above: Result Comment: Elec tronically Signed By: GAVIOTA VEGA PA-C\.br\Date and Time Signed: 11/15/22 14:32 EDT\.br\Electronically Co-Signed By: Maria Elena Negrete\.br\Date and Time Co-Signed: 11/15/22 14:22 EDT\.br\Electronically Co-Signed By: Maria Elena Negrete.br\Date and Time Co-Signed: 11/15/22 14:22 EDT CBC AUTO DIFFon 10-05-2022 BASO # 0.1 103/ul Normal 0.0-0.1 [facility] Comment on above: Performed By: #### C BC #### [facility] [address] [address] [address] Ashlie Hills Basophils/100 WBC (Bld) 0.6 % Normal 0.2-2.0 [facility] Comment on above: Performed By: #### C BC #### [facility] [address] [place] [address] Dr. Ashlie Hills EO # 0.3 103/ul Normal 0.0-0.7 [facility] Comment on above: Performed By: #### C BC #### [facility] [address] [place] [address] Dr. Ashlie Hills Eosinophils/100 WBC (Bld) 2.1 % Normal 0.9-7.0 [facility] Comment on above: Performed By: #### C BC #### [facility] [address] [place] [address] Dr. Ashlie Hills Erythrocyte distribution wid th (RBC) [Ratio] 15.9 % Critically high 11.0-15.0 [facility] Comment on above: Performed By: #### C BC #### [facility] [address] [place] [address] Dr. Ashlie Hills Hematocrit (Bld) [Volume fraction] 51.8 % Critically high 36.0-48.0 [facility] Comment on above: Performed By: #### C BC #### [facility] [address] [place] [address] Dr. Ashlie Hills Hemoglobin (Bld) [Mass/Vol] 16.6 g/dL Critically high 12. 0-16.0 [facility] Comment on above: Performed By: #### C BC #### [facility] [address] [address] [address] Ashlie Hills IG # 0.03 10e3/ul Normal 0.00-0.03 [facility] Comment on above: Performed By: #### C BC #### [facility] [address] [place] [address] Dr. Ashlie Hills IG % 0.2 % Normal 0.0-0.5 [facility] Comment on above: Performed By: #### C BC #### [facility] [address] [place] [address] Dr. Ashlie Hills LYMPH # 3.9 103/ul Critically high 1.2-3.8 [facility] Comment on above: Performed By: #### C BC #### [facility] [address] [place] [address] Dr. Ashlie Hills Lymphocytes/100 WBC (Bld) 31.7 % Normal 20.5-60.0 [facility] Comment on above: Performed By: #### C BC #### [facility] [address] [place] [address] Dr. Ashlie Hills MANUAL DIFF REQ NO Normal [facility] Comment on above: Performed By: #### C BC #### [facility] [address] [place] [address] Dr. Ashlie Hills MCH (RBC) [Entitic mass] 27.9 pg Normal 26.7-34.0 [facility] Comment on above: Performed By: #### C BC #### [facility] [address] [place] [address] Dr. Ahslie Hills MCHC (RBC) [Mass/Vol] 32.0 g/dL Normal 29.9-35.2 [facility] Comment on above: Performed By: #### C BC #### [facility] [address] [place] [address] Dr. Ashlie Hills MCV (RBC) [Entitic vol] 87.1 fL Normal 81.0-99.0 [facility] Comment on above: Performed By: #### C BC #### [facility] [address] [place] [address] Dr. Ashlie Hills MONO # 0.7 103/ul Normal 0.3-0.8 [facility] Comment on above: Performed By: #### C BC #### [facility] [address] [address] [address] Ashlie Hills Monocytes/100 WBC (Bld) 5.8 % Normal 1.7-12.0 [facility] Comment on above: Performed By: #### C BC #### [facility] [address] [address] [address] Ashlie Hills NEUT # 7.3 103/ul Critically high 1.4-6.5 [facility] Comment on above: Performed By: #### C BC #### [facility] [address] [address] [address] Ashlie Hills Neutrophils/100 WBC (Bld) 59.6 % Normal 43.0-75.0 [facility] Comment on above: Performed By: #### C BC #### [facility] [address] [place] [address] Dr. Ashlie Hills Platelet mean volume (Bld) [ Entitic vol] 11.7 fL Normal 9.5-13.5 [facility] Comment on above: Performed By: #### C BC #### [facility] [address] [place] [address] Dr. Ashlie Hills PLT 117 103/ul Critically low 150-450 [facility] Comment on above: Performed By: #### C BC #### [facility] [address] [address] [address] Ahslie Hills RBC 5.95 106/ul Critically high 4.20-5.40 [facility] Comment on above: Performed By: #### C BC #### [facility] [address] [place] [address] Dr. Ashlie Hills WBC 12.3 103/ul Critically high 4.0-11.0 [facility] Comment on above: Performed By: #### C BC #### [facility] [address] [place] [address] ABD/PELV W CONon 10-06-19 CT ABD/PELV W CON EXAM: CT ABD/PELV W CON HISTORY: GENERALIZED ABDOMINAL PAIN COMPARISON: None. TECHNIQUE: Axial CT imaging was performed through the abdomen and pelvis with intravenous contrast. Multiplanar reformats were performed. Dose reduction techniques were achieved by using automated exposure control and/or adjustment of mA and/or kV according to patient size and/or use of iterative reconstruction technique. FINDINGS: Lung bases: Lung bases are clear. No pleural effusion. GI upper: Unremarkable. Liver: Normal size and contour. Gallbladder: Cholecystectomy. Biliary system: No intra or extrahepatic biliary ductal dilatation. Spleen: Normal size. Pancreas: Unremarkable. Adrenal glands: Normal adrenal glands. Kidneys/ureters: Normal contours. No hydronephrosis. There is a 0.4 cm nonobstructing left renal stone. Vessels: No aneurysm. Lymph Nodes: No lymphadenopathy. Small bowel: No wall thickening or dilatation. Colon: No wall thickening or dilatation. Appendix: Appendix is identified with normal appearance. Peritoneal cavity: No free fluid or pneumoperitoneum. Lower : Unremarkable. Bones: No acute bony abnormality. Soft tissues: No acute finding. Additional findings: None. IMPRESSION: 0.4 cm nonobstructing left renal stone. Electronically authenticated by: RICCO PICKARD Date: 2022-10-05 13:13 Normal [facility] ER URINE PROFILEon 3 Bilirubin Ql (U) Negative Normal NEGATIVE [facility] Comment on above: Performed By: #### P OCGLUC #### [facility] [address] [place] [address] Dr. Ashlie Hills Clarity (U) CLEAR Normal CLEAR [facility] Comment on above: Performed By: #### P OCGLUC #### [facility] [address] [address] [address] Ashlie Hills Color (U) YELLOW Normal YELLOW The [facility]ital Comment on above: Performed By: #### P OCGLUC #### [facility] [address] [place] [address] Dr. Ashlie Hills ERUAHD A micrscopic examina tion will be performed if indicated. Normal The [facility] Comment on above: Performed By: #### P OCGLUC #### [facility] [address] [address] [address] Ashlie Hills Glucose Ql (U) Negative Normal NEGATIVE [facility] Comment on above: Performed By: #### P OCGLUC #### [facility] [address] [address] [address] Ashlie Hills Hemoglobin Ql (U) Negative Normal NEGATIVE [facility] Comment on above: Performed By: #### P OCGLUC #### [facility] [address] [address] [address] Ashlie Hills Ketones Ql (U) Negative Normal NEGATIVE [facility] Comment on above: Performed By: #### P OCGLUC #### [facility] [address] [address] [address] Ashlie Hills LEUKOCYTES Negative Normal NEGATIVE [facility] Comment on above: Performed By: #### P OCGLUC #### [facility] [address] [place] [address] Dr. Ashlie Hills Nitrite Ql (U) Negative Normal NEGATIVE [facility] Comment on above: Performed By: #### P OCGLUC #### [facility] [address] [place] [address] Dr. Ashlie Hills pH (U) 6.0 [pH] Normal 5-9 [facility] Comment on above: Performed By: #### P OCGLUC #### [facility] [address] [place] [address] Dr. Ashlie Hills Protein (U) [Mass/Vol] 100 mg/dL Abnormal NEGATIVE/ TRA CE [facility] Comment on above: Performed By: #### P OCGLUC #### [facility] [address] [address] [address] Ashlie Hills SPEC GRAVITY 1.010 Normal 1.005-<=1.025 [facility] Comment on above: Performed By: #### P OCGLUC #### [facility] [address] [place] [address] Dr. Ashlie Hills UR MICRO IND INDICATED Normal [facility] Comment on above: Performed By: #### P OCGLUC #### [facility] [address] [place] [address] Dr. Ashlie Hills Urobilinogen Qn (U) 1.0 {Little'U}/dL Normal 0.2 - 1. 0 [facility] Comment on above: Performed By: #### P OCGLUC #### [facility] [address] [place] [address] Dr. Ashlie Hills LIPASEon 10-05-2022 Lipase [Catalytic activity/Vol] 1771.0 U/L Critically high 73.0-393.0 [facility] Comment on above: Performed By: #### C BC #### [facility] [address] [place] [address] Dr. Ashlie Hills PREG HCG QUALon 10-05-2022 , QUAL Negative Normal NEGATIVE [facility] Comment on above: Performed By: #### P OCGLUC #### [facility] [address] [place] [address] Dr. Ashlie Hills PROF 14(COMP METB)on 023 Albumin [Mass/Vol] 3.2 g/dL Critically low 3.4-5.0 [facility] Comment on above: Performed By: #### C BC #### [facility] [address] [place] [address] Dr. Ashlie Hills Albumin/Globulin [Mass ratio] 0.7 {ratio} Normal [facility] Comment on above: Performed By: #### C BC #### [facility] [address] [place] [address] Dr. Ashlie Hills ALP [Catalytic activity/Vol] 70 U/L Normal 46-116 [facility] Comment on above: Performed By: #### C BC #### [facility] [address] [place] [address] Dr. Ashlie Hills ALT [Catalytic activity/Vol] 11 U/L Critically low 14- 59 [facility] Comment on above: Performed By: #### C BC #### [facility] [address] [place] [address] Dr. Ashlie Hills Anion gap [Moles/Vol] 10.3 mmol/L Normal [facility] Comment on above: Performed By: #### C BC #### [facility] [address] [place], [place] [id number] Dr. Ashlie Hills AST [Catalytic activity/Vol] 11 U/L Critically low 15- 37 [facility] Comment on above: Performed By: #### C BC #### [facility] [address] [address] [address] Ashlie Hills Bilirubin [Mass/Vol] 0.9 mg/dL Normal 0.2-1.0 [facility] Comment on above: Performed By: #### C BC #### [facility] [address] [address] [address] Ashlie Hills Calcium [Mass/Vol] 9.3 mg/dL Normal 8.5-10.1 [facility] Comment on above: Performed By: #### C BC #### [facility] [address] [place] [address] Dr. Ashlie Hills Chloride [Moles/Vol] 105 mmol/L Normal 98-107 [facility] Comment on above: Performed By: #### C BC #### [facility] [address] [place] [address] Dr. Ashlie Hills CO2 [Moles/Vol] 30.6 mmol/L Normal 21.0-32.0 [facility] Comment on above: Performed By: #### C BC #### [facility] [address] [place] [address] Dr. Ashlie Hills Creatinine [Mass/Vol] 0.62 mg/dL Normal 0.55-1.02 [facility] Comment on above: Performed By: #### C BC #### [facility] [address] [place] [address] Dr. Ashlie Hills EGFR-AF KITTITIAN >60 Normal >=60 [facility] Comment on above: Performed By: #### C BC #### [facility] [address] [place] [address] Dr. Ashlie Hills EGFR-NON AF KITTITIAN >60 Normal >=60 [facility] Comment on above: Performed By: #### C BC #### [facility] [address] [place] [address] Dr. Ashlie Hills Globulin (S) [Mass/Vol] 4.6 g/dL Normal [facility] Comment on above: Performed By: #### C BC #### [facility] [address] [address] [address] Ashlie Hills Glucose [Mass/Vol] 85 mg/dL Normal 74-106 [facility] Comment on above: Performed By: #### C BC #### [facility] [address] [address] [address] Ashlie Hills Potassium [Moles/Vol] 3.9 mmol/L Normal 3.5-5.1 [facility] Comment on above: Performed By: #### C BC #### [facility] [address] [address] [address] Ashlie Hills Protein [Mass/Vol] 7.8 g/dL Normal 6.4-8.2 [facility] Comment on above: Performed By: #### C BC #### [facility] [address] [place] [address] Dr. Ashlie Hills Sodium [Moles/Vol] 142 mmol/L Normal 136-145 [facility] Comment on above: Performed By: #### C BC #### [facility] [address] [address] [address] Ashlie Hills Urea nitrogen [Mass/Vol] 12.0 mg/dL Normal 7.0-18.0 [facility] Comment on above: Performed By: #### C BC #### [facility] [address] [address] [address] Ashlie Hills Urea nitrogen/Creatinine [Mass ratio] 19.4 mg/mg Normal [facility] Comment on above: Performed By: #### C BC #### [facility] [address] [address] [address] Ashlie Hills URINE MICROSCOPIC ONLYon BACTERIA TRACE Abnormal NONE SEEN [facility] Comment on above: Performed By: #### P OCGLUC #### [facility] [address] [place] [address] Dr. Ashlie Hills Bacteria identified Cx Nom (U) NOT INDICATED Normal [facility] Comment on above: Performed By: #### P OCGLUC #### [facility] [address] [place] [address] Dr. Ashlie Hills CAST NONE SEEN Normal NONE SEEN [facility] Comment on above: Performed By: #### P OCGLUC #### [facility] [address] [place] [address] Dr. Ashlie Hills Crystals LM Nom (Urine sed) NONE SEEN Normal NONE SEE N [facility] Comment on above: Performed By: #### P OCGLUC #### [facility] [address] [place] [address] Dr. Ashlie Hills Epithelial cells LM Ql (Urin e sed) MODERATE Abnormal NONE SEEN /RARE The [facility] Comment on above: Performed By: #### P OCGLUC #### [facility] [address] [place] [address] Dr. Ashlie Hilsl MUCOUS NONE SEEN Normal NONE SEEN [facility] Comment on above: Performed By: #### P OCGLUC #### [facility] [address] [place] [address] Dr. Ashlie Hills RBC 0-2 Normal 0-2 [facility] Comment on above: Performed By: #### P OCGLUC #### [facility] [address] [place] [address] Dr. Ashlie Hills WBC 0-2 Abnormal NONE SEEN [facility] Comment on above: Performed By: #### P OCGLUC #### [facility] [address] [place] [address] Dr. Ashlie Hills [facility] SARS-CoV-2 (COVID-19) RNA MADDY+probe Ql (Unsp spec) Detected Abnormal NOT DETECTED [facility] Comment on above: Result Comment: This test is not yet approved or cleared by the [place] FDA. When there are no FDA-approved or cleared tests available, and other criteria are met, FDA can make tests available under an emergency access mechanism called an Emergency Use Authorization (EUA). The EUA for this test is supported by the Belt Worker of Health and Human Service's declaration that circumstances exist to justify the emergency use of in vitro diagnostics for the detection and/or diagnosis of the virus that causes COVID-19. This EUA will remain in effect for the duration of the COVID-19 declaration justifying emergency of IVDs, unless it is terminated or revoked by the FDA (after which the test may no longer be used). Performed By: #### C VDAGS #### [facility] [address] [place] [address] Dr. Ashlie Hills INFLUENZA A AND B [facility] 09-21 [facility] SEE BELOW Normal The [facility] Comment on above: Result Comment: Nega tive for Flu A protein angiten. Infection due to Flu A cannot be ruled out. Flu A angiten in the sample may be below the detection limit of the test. Performed By: #### I NFLUAB #### [facility] [address] [place] [address] Dr. Ashlie Hills [facility] Normal [facility] Comment on above: Result Comment: Nega tive for Flu B protein antigen. Infection due to Flu B cannot be ruled out. Flu B antigen in the sample may be below the detection limit of the test. Performed By: #### I NFLUAB #### [facility] [address] [place] [address] Dr. Ashlie Hills INFLUENZA A AG Negative Normal NEGATIVE SEE COMMENT [facility] Comment on above: Performed By: #### I NFLUAB #### [facility] [address] [place] [address] Dr. Ashlie Hills INFLUENZA B AG Negative Normal NEGATIVE SEE COMMENT [facility] Comment on above: Performed By: #### I NFLUAB #### [facility] [address] [place] [address] Dr. Ashlie Hills RAD - CT Reporton 07-31-2022 RAD - CT Report [id number]:[id number] [facility] [address] ABD/PELV W CONon 07-27-19 CT ABD/PELV W CON INDICATION: Disorder of adrenal gland EXAMINATION: CT ABDOMEN AND PELVIS WITH CONTRAST TECHNIQUE: Helically acquired images were obtained of the abdomen and pelvis following intravenous administration of iodinated contrast. A radiation dose optimization technique was used for this scan. ENTERIC CONTRAST: None. COMPARISON: 12/24/2021 FINDINGS: LOWER CHEST: The visualized portions of the lung bases are clear. The heart size is within normal limits. A pericardial effusion is not identified. STOMACH: Unremarkable. LIVER: No hepatic mass or lesion is identified. GALLBLADDER AND BILIARY TREE: No gallstones are identified. The gallbladder does not appear distended. No gallbladder wall thickening is identified. There is no visible pericholecystic fluid. No intra- or extrahepatic biliary ductal dilation is identified. PANCREAS: A pancreatic mass or lesion is not identified. The pancreatic duct does not appear dilated. SPLEEN: A splenic lesion is not identified. ADRENAL GLANDS: The right adrenal gland appears normal. A left adrenal gland angiomyolipoma previously measuring approximately 3.3 x 2.8 cm currently measures approximately 3.5 x 3.1 cm. On 10/21/2018, it measured approximately 2.1 x 2.1 cm. KIDNEYS AND URETERS: The right kidney appears normal. A nonobstructing roughly 1 mm lower pole left renal cyst calculus is unchanged but is more conspicuous on the current examination than on the prior. The ureters are unremarkable in appearance. PERITONEUM: No free intra-abdominal air is identified. No free pelvic fluid is detected. BOWEL: No bowel distension is observed. No significant colonic diverticula are observed. LYMPH NODES: A mildly enlarged left external iliac chain lymph node previously measuring up to 1.1 cm in short axis currently measures up to 1.2 cm. On 10/21/2018, it measured up to 1.3 cm. VESSELS: An aneurysm is not identified. There are scattered calcifications distributed throughout the abdominal aorta. UTERUS: Absent. OVARIES: Unremarkable in appearance. URINARY BLADDER: Unremarkable. ABDOMINAL WALL: No abdominal or pelvic wall hernia. APPENDIX: The appendix appears normal. MUSCULOSKELETAL: Severe right hip arthritis, evidenced by joint space narrowing and formation of large articulating surface osteophytes and flattening/deformity of the right femoral head, is unchanged. Grade 1 L4 on L5 anterolisthesis. IMPRESSION: 1. Slowly enlarging left adrenal gland angiomyolipoma. A repeat CT in approximately 2 years time should be adequate. 2. Nephrolithiasis, unchanged. 3. Severe right hip arthritis, unchanged. 4. Mildly enlarged left external iliac chain lymph node, dating back to at least 10/21/2018, unchanged. https://www.ncbi.nlm.nih.gov/pmc/articles/YIF5555464/ Electronically authenticated by: COLLIN HUERTAS Date: 2022-07-27 14:56 Normal [facility] Reminderson 07-27-2022 Reminders - From: aRquel Tidwell To: EU - Recalls Vargas; Sent: 02/06/2022 11:45:57 EDT Show up: 07/09/2022 11:45:00 EST Subject: Ct scan Due Date/Time: 07/31/2022 11:45:00 EST Reminder/Recall Pt needs Ct scan abd/pelvis w contrast ATTN Adrenals scheduled prior to Aug [address] appt[address] [facility] order faxed to [facility] Pt scheduled for 07/27/2022 will monitor [facility] for results over the next few days Normal F [facility] Physician Orderon 07-19-2022 Physician Order [id number]:127 Normal [facility] CREATININEon 07-18-2022 Creatinine [Mass/Vol] 0.81 mg/dL Normal 0.55-1.02 [facility] Comment on above: Performed By: #### C BC #### [facility] [address] [address] [address] Ashlie Hills EGFR-AF KITTITIAN >60 Normal >=60 [facility] Comment on above: Performed By: #### C BC #### [facility] [address] [place], [place] [address] Dr. Ashlie Hills EGFR-NON AF KITTITIAN >60 Normal >=60 [facility] Comment on above: Performed By: #### C BC #### [facility] [address] [place], [place] [address] LOW EXT W CONT LTon 07-18 CT LOW EXT W CONT LT EXAMINATION: CT LOW EXT W CONT LT HISTORY: Abscess ; left knee pain, swelling, and redness COMPARISON: XR knee left 07/18/2022 TECHNIQUE: After obtaining the patient's consent, multi-planar CT images were created without and with non-ionic intravenous contrast material. Dose reduction techniques were achieved by using automated exposure control and/or adjustment of mA and/or kV according to patient size and/or use of iterative reconstruction technique. FINDINGS: BONES: Moderate narrowing of the medial joint space. Small periarticular degenerative osteophytes involving all 3 compartments. No fracture, dislocation, bone lesion. SOFT TISSUES: Prominent subcutaneous edema. No fluid collection, abscess, or mass. EFFUSION: None. OTHER: Negative. IMPRESSION: 1. No abscess. 2. Prominent subcutaneous edema. 3. Moderate degenerative joint disease. Electronically authenticated by: PATRICIA IVAN Date: 2022-07-18 14:58 Normal The [facility] l XR KNEE LT 1_2 Von 3 XR KNEE LT 1_2 V EXAM: XR KNEE LT 1_2 V HISTORY: Left knee pain; technologist notes state red, hot and swollen left knee for a couple of days. COMPARISON: 12/20/2019. TECHNIQUE: AP and lateral views of the left knee performed. FINDINGS: The bony structures appear osteopenic. There is no fracture, osseous destruction or periostitis. There are mild degenerative changes at the medial compartment of the femoral-tibial articulation. There is no joint effusion at the knee. There are extensive stranding densities within the subcutaneous tissues which in the right clinical setting can be associated with a cellulitis. IMPRESSION: There is no acute osseous abnormality. There are extensive stranding densities within the subcutaneous tissues which in the right clinical setting can be associated with a cellulitis. Electronically authenticated by: HATTIE BAUTISTA Date: 2022-07-18 12:00 Normal The [facility] Covid-19 PCR ([facility])on 06-09 SARS-CoV-2 (COVID-19) RNA MADDY+probe Ql (Unsp spec) Not detected Normal NOT DETECTED [facility] Comment on above: Result Comment: This test is not yet approved or cleared by the [place] FDA. When there are no FDA-approved or cleared tests available, and other criteria are met, FDA can make tests available under an emergency access mechanism called an Emergency Use Authorization (EUA). The EUA for this test is supported by the Belt Worker of Health and Human Service's (HHS's) declaration that circumstances exist to justify the emergency use of in vitro diagnostics for the detection and/or diagnosis of the virus that causes COVID-19. This EUA will remain in effect (meaning this test can be used) for the duration of the COVID-19 declaration justifying emergency of IVDs, unless it is terminated or revoked by FDA (after which the test may no longer be used). When diagnostic testing is negative, the possibility of a false negative should be considered in the context of a patient's recent exposures and the presence of clinical signs and symptoms consistent with SARS-CoV-2. Performed By: #### C BC #### [facility] [address] [place] [address] Dr. Ashlie Hills INFLUENZA A AND B AGon 07-06 [facility] SEE BELOW Normal The [facility] Comment on above: Result Comment: Nega tive for Flu A protein angiten. Infection due to Flu A cannot be ruled out. Flu A angiten in the sample may be below the detection limit of the test. Performed By: #### C BC #### [facility] [address] [place] [address] Dr. Ashlie Hills [facility] SEE BELOW Normal [facility] Comment on above: Result Comment: Nega tive for Flu B protein antigen. Infection due to Flu B cannot be ruled out. Flu B antigen in the sample may be below the detection limit of the test. Performed By: #### C BC #### [facility] [address] [place] [address] Dr. Ashlie Hills INFLUENZA A AG Negative Normal NEGATIVE SEE COMMENT [facility] Comment on above: Performed By: #### C BC #### [facility] [address] [place] [address] Dr. Ashlie Hills INFLUENZA B AG Negative Normal NEGATIVE SEE COMMENT [facility] Comment on above: Performed By: #### C BC #### [facility] [address] [place] [address] Dr. Ashlie Hills POINT OF CARE GLUCOSEon 10 Glucose [Mass/Vol] 108 mg/dL Critically high 74-106 [facility] Comment on above: Performed By: #### C BC #### [facility] [address] [place] [address] Dr. Ashlie Hills RAGHU by IFAon 03-07-2022 Antinuclear Antibodies, IFA Negative Normal [facility] Comment on above: Result Comment: Nega tive <1:80 Borderline 1:80 Positive >1:80 ICAP nomenclature: AC-0 For more information about Hep-2 cell patterns use ANApatterns.org, the official website for the International Consensus on Antinuclear Antibody (RAGHU) Patterns (ICAP). Performed By: #### A NAIFA #### [facility] [address] [place] [address] Dr. Ashlie Hills IMMUNOFIXATION (TREVON), URINEo n 03-07-2022 TREVON Interpretation:U Comment Normal [facility] Comment on above: Result Comment: No m onoclonality detected. Performed By: #### C BC #### [facility] [address] [place] [address] Dr. Ashlie Hills IMMUNOFIXATION(TREVON),PROTEIN ELEC(PE),FREon 03-07-2022 Albumin [Mass/Vol] 3.0 g/dL Normal 2.9-4.4 [facility] Comment on above: Performed By: #### I NFLUAB #### [facility] [address] [place] [address] Dr. Ashlie Hills Albumin/Globulin [Mass ratio] 0.8 {ratio} Normal 0.7-1 .7 [facility] Comment on above: Performed By: #### I NFLUAB #### [facility] [address] [address] [address] Ashlie Hills Xzauc-1-Phbouhjf 0.3 g/dL Normal 0.0-0.4 [facility] Comment on above: Performed By: #### I NFLUAB #### [facility] [address] [address] [address] Ashlie Hills Aaalw-0-Xogoxdbg 1.0 g/dL Normal 0.4-1.0 [facility] Comment on above: Performed By: #### I NFLUAB #### [facility] [address] [address] [address] Ashlie Hills Beta Globulin 1.8 g/dL Critically high 0.7-1.3 [facility] Comment on above: Performed By: #### I NFLUAB #### [facility] [address] [place] [address] Dr. Ashlie Hills Free Wakeeney Lt Chains,S 45.2 mg/L Critically high 3.3-19.4 [facility] Comment on above: Performed By: #### I NFLUAB #### [facility] [address] [address] [address] Ashlie Hills Free Lambda Lt Chains,S 40.3 mg/L Critically high 5.7-26. 3 [facility] Comment on above: Performed By: #### I NFLUAB #### [facility] [address] [address] [address] Ashlie Hills Gamma Globulin 0.8 g/dL Normal 0.4-1.8 [facility] Comment on above: Performed By: #### I NFLUAB #### [facility] [address] [address] [address] Ashlie Hills Globulin (S) [Mass/Vol] 3.9 g/dL Normal 2.2-3.9 [facility] Comment on above: Performed By: #### I NFLUAB #### [facility] [address] [address] [address] Ashlie Hills Immunofixation Result, Serum Comment Normal [facility] Comment on above: Result Comment: No m onoclonality detected. Performed By: #### I NFLUAB #### [facility] [address] [address] [address] Ashlie Hills Immunoglobulin A, Qn, Serum 776 mg/dL Critically high 87- 352 [facility] Comment on above: Performed By: #### I NFLUAB #### [facility] [address] [address] [address] Ashlie Hills Immunoglobulin G, Qn, Serum 955 mg/dL Normal [id number] [facility] Comment on above: Performed By: #### I NFLUAB #### [facility] [address] [address] [address] Ashlie Hills Immunoglobulin M, Qn, Serum 39 mg/dL Normal 26-217 [facility] Comment on above: Performed By: #### I NFLUAB #### [facility] [address] [address] [address] Ashlie Hills Wakeeney/Lambda Ratio, S 1.12 Normal 0.26-1.65 [facility] Comment on above: Performed By: #### I NFLUAB #### [facility] [address] [place] [address] Dr. Ashlie Hills M-Bright Not Observed Normal Not Observed [facility] Comment on above: Performed By: #### I NFLUAB #### [facility] [address] [address] [address] Ashlie Hills PDF . Normal [facility] Comment on above: Performed By: #### I NFLUAB #### [facility] [address] [place] [address] Dr. Ashlie Hills Please note: Comment Normal [facility] Comment on above: Result Comment: Prot ein electrophoresis scan will follow via computer, mail, or peer tutor delivery. Performed By: #### I NFLUAB #### [facility] [address] [place] [address] Dr. Ashlie Hills Protein [Mass/Vol] 6.9 g/dL Normal 6.0-8.5 [facility] Comment on above: Performed By: #### I NFLUAB #### [facility] [address] [address] [address] Ashlie Hills C-PEPTIDE, SERUMon 2 C-Peptide, Serum 3.1 ng/mL Normal 1.1-4.4 [facility] Comment on above: Result Comment: C-Pe ptide reference interval is for fasting patients. Performed By: #### C PEPT #### [facility] [address] [address] [address] Ashlie Hills HEP B SURFACE ANTIGEN SCREEN on 03-04-2022 HBsAg Screen Negative Normal Negative [facility] Comment on above: Performed By: #### C BC #### [facility] [address] [address] [address] Ashlie Hills HEPATITIS C VIRUS AB W/ REFL EX QUANTon 03-04-2022 HCV AB <0.1 Normal 0.0-0.9 [facility] Comment on above: Performed By: #### I NFLUAB #### [facility] [address] [address] [address] Ashlie Hills Interpretation: Comment Normal [facility] Comment on above: Result Comment: Nega tive Not infected with HCV, unless recent infection is suspected or other evidence exists to indicate HCV infection. Performed By: #### I NFLUAB #### [facility] [address] [address] [address] Ashlie Hills MICROALBUMIN/ CREATININE RAT IOon 03-04-2022 Albumin, Urine 367.4 ug/mL Normal Not Estab. [facility] Comment on above: Performed By: #### C BC #### [facility] [address] [address] [address] Ashlie Hills Albumin/ Creatinine Ratio 239 mg/g creat Critically high 0 -29 [facility] Comment on above: Result Comment: Norm al: 0 - 29 Moderately increased: 30 - 300 Severely increased: >300 Performed By: #### C BC #### [facility] [address] [address] [address] Ashlie Hills Creatinine, Urine 153.9 mg/dL Normal Not Estab. The [facility] Comment on above: Performed By: #### C BC #### [facility] [address] [address] [address] Ashlie Hills VIT D 25-OH LABCORPon 2021 Vitamin D, 25-Hydroxy <4.0 Critically low 30.0-100.0 [facility] Comment on above: Result Comment: Graciela min D deficiency has been defined by the [place] of [employer] and an Endocrine Society practice guideline as a level of serum 25-OH vitamin D less than 20 ng/mL (1,2). The Endocrine Society went on to further define vitamin D insufficiency as a level between 21 and 29 ng/mL (2). 1. IOM ([place] of [employer]). 2010. Dietary reference intakes for calcium and D. [place]: The National Academies Press. 2. Lynda STAHL, Keely OLIVEROS, Leandra LOPEZ, et al. Evaluation, treatment, and prevention of vitamin D deficiency: an Endocrine Society clinical practice guideline. JCEM. 2010; 96(7):1911-30. Performed By: #### C BC #### [facility] [address] [address] [address] Ashlie Hills GLYCOHEMOGLOBIN A1Con 2021 ADA RECOMMENDATION SEE BELOW Normal The [facility] Comment on above: Result Comment: ADA RECOMMENDED LIMIT 4.0 - 6.0 ADA THERAPEUTIC TARGET < 7.0 ACTION SUGGESTED > 7.0 Performed By: #### C VDAGS #### [facility] [address] [address] [address] Ashlie Hills Glucose [Mass/Vol] 295 mg/dL Normal [facility] Comment on above: Performed By: #### C VDAGS #### [facility] [address] [address] [address] Ashlie Hills HbA1c (Bld) [Mass fraction] 11.9 % Critically high 4.5 -6.2 [facility] Comment on above: Performed By: #### C VDAGS #### [facility] [address] [address] [address] Ashlie Hills HEMOGRAM AND PLATELon 2021 Hematocrit (Bld) [Volume fraction] 56.3 % Critically high 36.0-48.[address] [facility] Comment on above: Performed By: #### C VDAGS #### [facility] [address] [place] [address] Dr. Ashlie Hills Hemoglobin (Bld) [Mass/Vol] 18.0 g/dL Critically high 12. 0-16.0 [facility] Comment on above: Performed By: #### C VDAGS #### [facility] [address] [place] [address] Dr. Ashlie Hills MCH (RBC) [Entitic mass] 29.5 pg Normal 26.7-34.0 [facility] Comment on above: Performed By: #### C VDAGS #### [facility] [address] [place] [address] Dr. Ashlie Hills MCHC (RBC) [Mass/Vol] 32.0 g/dL Normal 29.9-35.2 [facility] Comment on above: Performed By: #### C VDAGS #### [facility] [address] [place] [address] Dr. Ashlie Hills MCV (RBC) [Entitic vol] 92.1 fL Normal 81.0-99.0 [facility] Comment on above: Performed By: #### C VDAGS #### [facility] [address] [place] [address] Dr. Ashlie Hills PLT 123 103/ul Critically low 150-450 [facility] Comment on above: Performed By: #### C VDAGS #### [facility] [address] [place] [address] Dr. Ashlie Hills RBC 6.11 106/ul Critically high 4.20-5.40 [facility] Comment on above: Performed By: #### C VDAGS #### [facility] [address] [place] [address] Dr. Ashlie Hills WBC 16.4 103/ul Critically high 4.0-11.0 [facility] Comment on above: Performed By: #### C VDAGS #### [facility] [address] [address] [address] Ashlie Hills LIPID PROFILEon 03-03-2022 CHOL-HDL RATIO NORM SEE BELOW Normal [facility] Comment on above: Result Comment: 3.3 - 4.4 LOW RISK 4.4 - 7.1 AVERAGE RISK 7.1 - 11.0 MODERATE RISK >11.0 HIGH RISK Performed By: #### C VDAGS #### [facility] [address] [address] [address] Ashlie Hills Cholesterol [Mass/Vol] 159 mg/dL Normal <=200 [facility] Comment on above: Performed By: #### C VDAGS #### [facility] [address] [place] [address] Dr. Ashlie Hills Cholesterol in HDL [Mass/Vol] 40 mg/dL Normal 40-60 [facility] Comment on above: Performed By: #### C VDAGS #### [facility] [address] [address] [address] Ashlie Hills Cholesterol in LDL [Mass/Vol] 81.8 mg/dL Normal [facility] Comment on above: Performed By: #### C VDAGS #### [facility] [address] [place] [address] Dr. Ashlie Hills Cholesterol.total/Cholestero l in HDL [Mass ratio] 4.0 {ratio} Normal [facility] Comment on above: Performed By: #### C VDAGS #### [facility] [address] [place] [address] Dr. Ashlie Hills HDL NORMAL > or = 60 mg/dl - LO W CARDIOVASCULAR RISK <40 mg/dl - HIGH CARDIOVASCULAR RISK Normal [facility] Comment on above: Performed By: #### C VDAGS #### [facility] [address] [place] [address] Dr. Ashlie Hills LDL CALC NORMAL SEE BELOW Normal [facility] Comment on above: Result Comment: <100 mg/dl OPTIMAL 100 - 129 mg/dl NEAR OR ABOVE OPTIMAL 130 - 159 mg/dl BORDERLINE HIGH 160 - 189 mg/dl HIGH >190 mg/dl VERY HIGH Performed By: #### C VDAGS #### [facility] [address] [address] [address] Ashlie Hills Triglyceride [Mass/Vol] 186 mg/dL Critically high <=150 [facility] Comment on above: Performed By: #### C VDAGS #### [facility] [address] [address] [address] Ashlie Hills VLDL CALC 37.2 mg/dL Normal [facility] Comment on above: Performed By: #### C VDAGS #### [facility] [address] [place] [address] Dr. Ashlie Hills RENAL FUNCTION PANELon 03-03 Albumin [Mass/Vol] 3.1 g/dL Critically low 3.4-5.[address] [facility] Comment on above: Performed By: #### C BC #### [facility] [address] [place] [address] Dr. Ashlie Hills Calcium [Mass/Vol] 9.2 mg/dL Normal 8.5-10.1 [facility] Comment on above: Performed By: #### C BC #### [facility] [address] [place] [address] Dr. Ashlie Hills Chloride [Moles/Vol] 102 mmol/L Normal 98-107 [facility] Comment on above: Performed By: #### C BC #### [facility] [address] [place] [address] Dr. Ashlie Hills CO2 [Moles/Vol] 31.9 mmol/L Normal 21.0-32.0 [facility] Comment on above: Performed By: #### C BC #### [facility] [address] [place] [address] Dr. Ashlie Hills Creatinine [Mass/Vol] 0.68 mg/dL Normal 0.55-1.02 [facility] Comment on above: Performed By: #### C BC #### [facility] [address] [place] [address] Dr. Ashlie Hills EGFR-AF KITTITIAN >60 Normal >=60 [facility] Comment on above: Performed By: #### C BC #### [facility] [address] [place] [address] Dr. Ashlie Hills EGFR-NON AF KITTITIAN >60 Normal >=60 [facility] Comment on above: Performed By: #### C BC #### [facility] [address] [address] [address] Ashlie Hills Glucose [Mass/Vol] 131 mg/dL Critically high 74-106 [facility] Comment on above: Performed By: #### C BC #### [facility] [address] [place] [address] Dr. Ashlie Hills Phosphate [Mass/Vol] 4.0 mg/dL Normal 2.6-4.7 [facility] Comment on above: Performed By: #### C BC #### [facility] [address] [place] [address] Dr. Ashlie iHlls Potassium [Moles/Vol] 4.0 mmol/L Normal 3.5-5.1 [facility] Comment on above: Performed By: #### C BC #### [facility] [address] [place] [address] Dr. Ashlie Hills Sodium [Moles/Vol] 141 mmol/L Normal 136-145 [facility] Comment on above: Performed By: #### C BC #### [facility] [address] [place] [address] Dr. Ashlie Hills Urea nitrogen [Mass/Vol] 17.0 mg/dL Normal 7.0-18.0 [facility] Comment on above: Performed By: #### C BC #### [facility] [address] [place] [address] Dr. Ashlie Hills UA RANDOM W/MICROSCOPICon BACTERIA NONE SEEN Normal NONE SEEN [facility] Comment on above: Performed By: #### I NFLUAB #### [facility] [address] [place] [address] Dr. Ashlie Hills Bilirubin Ql (U) Negative Normal NEGATIVE [facility] Comment on above: Performed By: #### I NFLUAB #### [facility] [address] [place] [address] Dr. Ashlie Hills CAST NONE SEEN Normal NONE SEEN [facility] Comment on above: Performed By: #### I NFLUAB #### [facility] [address] [place] [address] Dr. Ashlie Hills Clarity (U) CLEAR Normal CLEAR [facility] Comment on above: Performed By: #### I NFLUAB #### [facility] [address] [place] [address] Dr. Ashlie Hills Color (U) YELLOW Normal YELLOW [facility] Comment on above: Performed By: #### I NFLUAB #### [facility] [address] [place] [address] Dr. Ashlie Hills Crystals LM Nom (Urine sed) NONE SEEN Normal NONE SEE N [facility] Comment on above: Performed By: #### I NFLUAB #### [facility] [address] [place] [address] Dr. Ashlie Hills Epithelial cells LM Ql (Urine sed) FEW Abnormal N ONE SEEN /RARE [facility] Comment on above: Performed By: #### I NFLUAB #### [facility] [address] [place] [address] Dr. Ashlie Hills Glucose Ql (U) Negative Normal NEGATIVE [facility] Comment on above: Performed By: #### I NFLUAB #### [facility] [address] [place] [address] Dr. Ashlie Hills Hemoglobin Ql (U) Negative Normal NEGATIVE [facility] Comment on above: Performed By: #### I NFLUAB #### [facility] [address] [place] [address] Dr. Ashlie Hills Ketones Ql (U) Negative Normal NEGATIVE [facility] Comment on above: Performed By: #### I NFLUAB #### [facility] [address] [place] [address] Dr. Ashlie Hills LEUKOCYTES Negative Normal NEGATIVE [facility] Comment on above: Performed By: #### I NFLUAB #### [facility] [address] [place] [address] Dr. Ashlie Hills MUCOUS NONE SEEN Normal NONE SEEN [facility] Comment on above: Performed By: #### I NFLUAB #### [facility] [address] [place] [address] Dr. Ashlie Hills Nitrite Ql (U) Negative Normal NEGATIVE [facility] Comment on above: Performed By: #### I NFLUAB #### [facility] [address] [place] [address] Dr. Ashlie Hills pH (U) 5.5 [pH] Normal 5-9 [facility] Comment on above: Performed By: #### I NFLUAB #### [facility] [address] [place] [address] Dr. Ashlie Hills RBC 0-2 Normal 0-2 [facility] Comment on above: Performed By: #### I NFLUAB #### [facility] [address] [place] [address] Dr. Ashlie Hills SPEC GRAVITY >=1.030 Abnormal 1.005-<=1.025 [facility] Comment on above: Performed By: #### I NFLUAB #### [facility] [address] [place] [address] Dr. Ashlie Hills UA PROTEIN 100 mg/dl Abnormal NEGATIVE/ TRACE [facility] Comment on above: Performed By: #### I NFLUAB #### [facility] [address] [place] [address] Dr. Ashlie Hills Urobilinogen Qn (U) 0.2 {Little'U}/dL Normal 0.2 - 1. 0 [facility] Comment on above: Performed By: #### I NFLUAB #### [facility] [address] [address] [address] Ashlie Hills WBC NONE SEEN Normal NONE SEEN [facility] Comment on above: Performed By: #### I NFLUAB #### [facility] [address] [place] [address] Dr. Ashlie Hills URIC ACID SERUMon 03-03-2022 Urate [Mass/Vol] 5.0 mg/dL Normal 2.6-6.0 [facility] Comment on above: Performed By: #### I NFLUAB #### [facility] [address] [address] [address] Ashlie Hills URINE T PROTEIN CREAT RATIOo n 03-03-2022 Protein (U) [Mass/Vol] 77.9 mg/dL Critically high <=12.0 [facility] Comment on above: Performed By: #### C VDAGS #### [facility] [address] [address] [address] Ashlie Hills UR PROT CREAT RAT 0.44 Normal [facility] Comment on above: Performed By: #### C VDAGS #### [facility] [address] [address] [address] Ashlie Hills URINE CREAT 175.15 mg/dL Normal 20.00-300.00 [facility] Comment on above: Performed By: #### C VDAGS #### [facility] [address] [address] [address] Ashlie Hills Consultation Noteon 02-23-20 22 Consultation Note [id number]:127 Normal [facility] Formson 02-10-2022 Forms [id number] :127 Normal [facility] Physician Referralon 022 Physician Referral [id number]:127 Normal [facility] Ambulatory Visit Summaryon 0 02-06-2022 Ambulatory Visit Summary MITZI MACIAS :1970 Visit Date:02/06/2022 Ambulatory Visit Instructions Your Diagnosis Angiomyolipoma Kidney stone BPH with urinary obstruction Smoker Adrenal mass 1 cm to 4 cm in diameter Other obstructive and reflux uropathy Tests Performed Urnls Dip Stick Auto w/o Microscopy POC [address] CT Abdomen/Pelvis w/ Contrast -- Results Pending -- Please visit your patient portal for your results or contact your primary care physician. Your Care Team Attending Physician - Elbert VARGAS MD Primary Care Physician - LUIS M CHAND CNP Referring Physician - LUISM CHAND CNP This Is Your Medications List Contact prescribing physician if questions or concerns acetaminophen-hydrocodone (acetaminophen-hydrocodone 325 mg-5 mg oral tablet) albuterol (albuterol 0.083% Inh Tracey 3 mL) amitriptyline (amitriptyline 25 mg Tab) budesonide-formoterol (Symbicort 160/4.5 inhalation aerosol with adapter) diclofenac (diclofenac sodium 75 mg Oral EC Tab) dulaglutide (Trulicity Pen 4.5 mg/0.5 mL subcutaneous solution) duloxetine (DULoxetine 30 mg Cap-EC) furosemide (furosemide 20 mg Tab) insulin aspart (NovoLog) insulin glargine (Lantus Solostar Pen 100 units/mL subcutaneous solution) lisinopril (lisinopril 20 mg Tab) meloxicam potassium chloride (potassium chloride 10 mEq Cap-ER) pregabalin (Lyrica) pregabalin (pregabalin 300 mg Cap) tiotropium (Spiriva Respimat 60 ACT 2.5 mcg/inh inhalation aerosol) Procedures Performed H/O: hysterectomy, Laparoscopic cholecystectomy, Operative procedure on foot or toes. Discharge Vitals Heart Rate (Peripheral) 70 Respiratory Rate 16 Blood Pressure 134/76 Height 170.0 cm Height 170 cm Weight 160.0 kg Weight 160 kg BMI 55.36 What to do next You Need to Schedule the Following Appointments Follow Up with REGLA PHIPPS, Elbert Joya, URL When: In 6 months Comments: w/ repeat CT A/P Where: [facility] [address] , [place] [phone] Medications What How Much When Instructions Unchanged acetaminophen-hydrocodone (acetaminophen-hydrocodone 325 mg-5 mg oral tablet) Contact prescribing physician if questions or concerns Unchanged albuterol (albuterol 0.083% Inh Tracey 3 mL) Contact prescribing physician if questions or concerns Unchanged amitriptyline (amitriptyline 25 mg Tab) Contact prescribing physician if questions or concerns Unchanged budesonide-formoterol (Symbicort 160/ 4.5 inhalation aerosol with adapter) Contact prescribing physician if questions or concerns Unchanged diclofenac (diclofenac sodium 75 mg Oral EC Tab) Contact prescribing physician if questions or concerns Unchanged dulaglutide (Trulicity Pen 4.5 mg/ 0.5 mL subcutaneous solution) Contact prescribing physician if questions or concerns Unchanged duloxetine (DULoxetine 30 mg Cap-EC) Contact prescribing physician if questions or concerns Unchanged furosemide (furosemide 20 mg Tab) Contact prescribing physician if questions or concerns Unchanged insulin aspart (NovoLog) Before meals Contact prescribing physician if questions or concerns Unchanged insulin glargine (Lantus Solostar Pen 100 units/ mL subcutaneous solution) Contact prescribing physician if questions or concerns Unchanged lisinopril (lisinopril 20 mg Tab) Contact prescribing physician if questions or concerns Unchanged meloxicam Every day Contact prescribing physician if questions or concerns Unchanged potassium chloride (potassium chloride 10 mEq Cap-ER) Contact prescribing physician if questions or concerns Unchanged pregabalin (Lyrica) Contact prescribing physician if questions or concerns Unchanged pregabalin (pregabalin 300 mg Cap) Contact prescribing physician if questions or concerns Unchanged tiotropium (Spiriva Respimat 60 ACT 2.5 mcg/ inh inhalation aerosol) Contact prescribing physician if questions or concerns Test Results Urnls Dip Stick Auto w/o Microscopy POC 65158 (02/06/2022) Bilirubin Urine Dipstick - Negative Blood Urine Dipstick - Negative Glucose Urine Dipstick - 2+ 500 mg/dl Ketones Urine Dipstick - Negative Leukocytes Urine Dipstick - Negative Nitrite Urine Dipstick - Negative Protein Urine Dipstick - 3+ (300 mg/dl) Specific [place] Urine Dipstick - >=1.030 Urine Appearance Urine Dipstick - Clear Urine Color Urine Dipstick - Dark yellow Urobilinogen Urine Dipstick - Normal 0.2-1 EU/dl pH Urine Dipstick - 5 Allergies No Known Medication Allergies Problems Ongoing - Any problem that you are currently receiving treatment for. Adrenal mass 1 cm to 4 cm in diameter Angiomyolipoma Arthritis Asthma BPH with urinary obstruction COPD type A Headache Hypertension Kidney stone Left flank pain Smoker Type 2 diabetes mellitus Education Materials Benign Prostatic Hyperplasia Benign prostatic hyperplasia (BPH) is an enlarged prostate gland that is caused (more content not included)... Normal [facility] Patient Educationon 02-07-20 Patient Education Obstetrics and Gynec ology Overactive Bladder, Adult Overactive bladder refers to a condition in which a person has a sudden need to pass urine. The person may leak urine if he or she cannot get to the bathroom fast enough (urinary incontinence). A person with this condition may also wake up several times in the night to go to the bathroom. Overactive bladder is associated with poor nerve signals between your bladder and your brain. Your bladder may get the signal to empty before it is full. You may also have very sensitive muscles that make your bladder squeeze too soon. These symptoms might interfere with daily work or social activities. What are the causes? This condition may be associated with or caused by: ? Urinary tract infection. ? Infection of nearby tissues, such as the prostate. ? Prostate enlargement. ? Surgery on the uterus or urethra. ? Bladder stones, inflammation, or tumors. ? Drinking too much caffeine or alcohol. ? Certain medicines, especially medicines that get rid of extra fluid in the body (diuretics). ? Muscle or nerve weakness, especially from: ? A spinal cord injury. ? Stroke. ? Multiple sclerosis. ? Parkinson's disease. ? Diabetes. ? Constipation. What increases the risk? You may be at greater risk for overactive bladder if you: ? Are an older adult. ? Smoke. ? Are going through menopause. ? Have prostate problems. ? Have a neurological disease, such as stroke, dementia, Parkinson's disease, or multiple sclerosis (MS). ? Eat or drink things that irritate the bladder. These include alcohol, spicy food, and caffeine. ? Are overweight or obese. What are the signs or symptoms? Symptoms of this condition include: ? Sudden, strong urge to urinate. ? Leaking urine. ? Urinating 8 or more times a day. ? Waking up to urinate 2 or more times a night. How is this diagnosed? Your health care provider may suspect overactive bladder based on your symptoms. He or she will diagnose this condition by: ? A physical exam and medical history. ? Blood or urine tests. You might need bladder or urine tests to help determine what is causing your overactive bladder. You might also need to see a health care provider who specializes in urinary tract problems (urologist). How is this treated? Treatment for overactive bladder depends on the cause of your condition and whether it is mild or severe. You can also make lifestyle changes at home. Options include: ? Bladder training. This may include: ? Learning to control the urge to urinate by following a schedule that directs you to urinate at regular intervals (timed voiding). ? Doing Kegel exercises to strengthen your pelvic floor muscles, which support your bladder. Toning these muscles can help you control urination, even if your bladder muscles are overactive. ? Special devices. This may include: ? Biofeedback, which uses sensors to help you become aware of your body's signals. ? Electrical stimulation, which uses electrodes placed inside the body (implanted) or outside the body. These electrodes send gentle pulses of electricity to strengthen the nerves or muscles that control the bladder. ? Women may use a plastic device that fits into the vagina and supports the bladder (pessary). ? Medicines. ? Antibiotics to treat bladder infection. ? Antispasmodics to stop the bladder from releasing urine at the wrong time. ? Tricyclic antidepressants to relax bladder muscles. ? Injections of botulinum toxin type A directly into the bladder tissue to relax bladder muscles. ? Lifestyle changes. This may include: ? Weight loss. Talk to your health care provider about weight loss methods that would work best for you. ? Diet changes. This may include reducing how much alcohol and caffeine you consume, or drinking fluids at different times of the day. ? Not smoking. Do not use any products that contain nicotine or tobacco, such as cigarettes and e-cigarettes. If you need help quitting, ask your health care provider. ? Surgery. ? A device may be implanted to help manage the nerve signals that control urination. ? An electrode may be implanted to stimulate electrical signals in the bladder. ? A procedure may be done to change the shape of the bladder. This is done only in very severe cases. Follow these instructions at home: Lifestyle ? Make any diet or lifestyle changes that are recommended by your health care provider. These may include: ? Drinking less fluid or drinking fluids at different times of the day. ? Cutting down on caffeine or alcohol. ? Doing Kegel exercises. ? Losing weight if needed. ? Eating a healthy and balanced diet to prevent constipation. This may include: ? Eating foods that are high in fiber, such as fresh fruits and vegetables, whole grains, and beans. ? Limiting foods that are high in fat and processed sugars, such as fried and sweet foods. General instructions ? Take ove (more content not included)... Normal Mu[facility]oz [facility] Urology Office/Clinic Noteon 02-06-2022 Urology Office/Clinic Note Chief Complai nt left flank pain HPI Staff New pt referral for left flank pain and angiomyolipoma of the left adrenal. Pt presented to the ED for back pain on 12/24/[address] showed left adrenal angiomyolipoma and punctate nonobstructing left renal. Dysuria: no Incomplete bladder emptying: no Hematuria: no Frequency: yes she states for years Urgency: yes she states for years Nocturia: 2-3x for 3-4 years Stream: good stream no straining Leaking: yes Post void dripping: no Wearing pads/ Depends: a pad and changes 1-3x Urge incontinence: yes Stress incontinence: yes Incontinence without Sensory Awareness: no Abdominal pain: no Flank pain: left sided dull ache Sexual complaints: no History of Present Illness Tests reviewed: reviewed UA I have reviewed the previous health record information and history for this patient from Dr. Vargas. I have reviewed and verified the staff HPI to be accurate for this encounter. There have been no associated fever, chills, flank pain, or blood in the urine. Denies any urinary infections since last encounter. Review of Systems PHQ Score Initial Depression Screen Score: 0 ROS - Provider Constitutional: denies weight loss, denies hot flashes. Eyes: denies eye problems. Gastrointestinal: denies nausea, denies vomiting. Cardiovascular: denies chest pain or angina. Integumentary: no dryness Musculoskeletal: denies musculoskeletal symptoms. ENMT: denies otolaryngeal symptoms. Respiratory: no shortness of breath. Heme/Lymph: denies easy bleeding tendency, denies easy bruising tendency. Psychiatric: no confusion, no anxiety. Genitourinary: denies vaginal discharge, denies incontinence, denies dysuria, denies hematuria, denies urinary frequency, denies amenorrhea, denies menorrhagia, denies abnormal bleeding, denies pelvic pain, denies genital sores, and denies decreased libido. Physical Exam Vitals & Measurements HR: 70(Peripheral) RR: 16 BP: 134/76 HT: 170.0 cm HT: 170 cm WT: 160.0 kg WT: 160 kg BMI: 55.36 General Appearance: alert , no acute distress, well nourished, well developed female. Head: normocephalic . Eyes: normal orbit and globe. ENMT: normal examination of external ears. Chest: Lungs CTA, respirations non labored . Cardiovascular: regular rate and rhythm. Abdomen: soft, non distended, no tenderness, no mass or organomegaly, no hernia. Genitourinary: bladder nonpalpable, no flank tenderness. Lymph Nodes: unremarkable palpation of the cervical area. Skin: warm, dry, no bruising. Psychiatric: cooperative, affect appropriate for age, normal judgement, euthymic mood. Assessment/Plan 1. Kidney stone (N20.0: Calculus of kidney) Pt states she has left-sided flank pain that is dull. CT A/P without contrast done 12/24/2021 showed no bilateral hydronephrosis, punctuate nonobstructing left renal calculus at the lower pole, and no gross abnormality or obstruction of the bilateral ureters. 2. Smoker (F17.200: Nicotine dependence, unspecified, uncomplicated) Pt began smoking cigarettes at 18. 3. Adrenal mass 1 cm to 4 cm in diameter (E27.8: Other specified disorders of adrenal gland) Pt was referred by PCP for left adrenal myelolipoma. CT A/P without contrast done 12/24/2021 showed rounded fat containing mass of the left adrenal gland measuring 3.3 x 2.8cm compatible with adrenal myelolipoma. Discussed with pt that this is not a concern at this time, pt should return with a repeat CT in about 6 months. 4. Mixed incontinence (N39.46: Mixed incontinence) Pt states she has had urinary urgency and frequency for years. Pt wears depends and changes them 1-3x a day. Pt states that she has had leaking at times before making it to the bathroom. Pt states she feels empty after voiding. she thinks this will stop after she gets her extra skin apron from bariatric surgery removed 5. Proteinuria (R80.9: Proteinuria, unspecified) UA today shows >= 300mg/dL of protein. Recommended pt to see a handle sewer due to high protein levels in the urine. All questions/concerns were discussed. Pt to call office if she encounters any issues prior. Pt acknowledges understanding. 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 Vargas on 02/06/2022 11:42:16. . Documentation recorded by the scribe, Enedelia Mendoza, accurately reflects the services(s) I performed and decisions made by me. Authenticated by Dr. Vragas on 02/06/2022 11:45:18. Problem List/Past Medical History Ongoing Adrenal mass 1 cm to 4 cm in diameter Arthritis Asthma COPD type A Headache Hypertension Kidney stone Left flank pain (more content not included)... Normal [facility] Comment on above: Result Comment: Elec tronically Signed By: Elbert VARGAS MD\.br\Date and Time Signed: 02/06/22 11:45 EDT\.br\Electronically Co-Signed By: Enedelia Mendoza\.br\Date and Time Co-Signed: 02/06/22 11:42 EDT CULTURE URINEon 12-25-2021 CULTURE URINE Culture Observations : GREATER THAN TWO ORGANISMS PRESENT, HEAVILY MIXED. PLEASE RESUBMIT CLEAN CATCH MID-STREAM URINE IF CLINICALLY INDICATED. Normal [facility] Comment on above: Performed By: #### I NFLUAB #### [facility] [address] [place] [address] Dr. Ashlie Hills CBC AUTO DIFFon 12-24-2021 BASO # 0.1 103/ul Normal 0.0-0.1 [facility] Comment on above: Performed By: #### C BC #### [facility] [address] [place] [address] Dr. Ashlie Hills Basophils/100 WBC (Bld) 0.5 % Normal 0.2-2.0 [facility] Comment on above: Performed By: #### C BC #### [facility] [address] [place] [address] Dr. Ashlie Hills EO # 0.4 103/ul Normal 0.0-0.7 [facility] Comment on above: Performed By: #### C BC #### [facility] [address] [place] [address] Dr. Ashlie Hills Eosinophils/100 WBC (Bld) 2.4 % Normal 0.9-7.0 [facility] Comment on above: Performed By: #### C BC #### [facility] [address] [place] [address] Dr. Ashlie Hills Erythrocyte distribution wid th (RBC) [Ratio] 14.1 % Normal 11.0-15.[address] [facility] Comment on above: Performed By: #### C BC #### [facility] [address] [place] [address] Dr. Ashlie Hills Hematocrit (Bld) [Volume fraction] 55.9 % Critically high 36.0-48.[address] [facility] Comment on above: Performed By: #### C BC #### [facility] [address] [place] [address] Dr. Ashlie Hills Hemoglobin (Bld) [Mass/Vol] 17.9 g/dL Critically high 12. 0-16.0 [facility] Comment on above: Performed By: #### C BC #### [facility] [address] [place] [address] Dr. Ashlie Hills IG # 0.06 10e3/ul Critically high 0.00-0.03 [facility] Comment on above: Performed By: #### C BC #### [facility] [address] [place] [address] Dr. Ashlie Hills IG % 0.4 % Normal 0.0-0.5 [facility] Comment on above: Performed By: #### C BC #### [facility] [address] [place] [address] Dr. Ashlie Hills LYMPH # 5.8 103/ul Critically high 1.2-3.8 [facility] Comment on above: Performed By: #### C BC #### [facility] [address] [place] [address] Dr. Ashlie Hills Lymphocytes/100 WBC (Bld) 35.4 % Normal 20.5-60.0 [facility] Comment on above: Performed By: #### C BC #### [facility] [address] [place] [address] Dr. Ashlie Hills MANUAL DIFF REQ NO Normal [facility] Comment on above: Performed By: #### C BC #### [facility] [address] [place] [address] Dr. Ashlie Hills MCH (RBC) [Entitic mass] 29.4 pg Normal 26.7-34.0 [facility] Comment on above: Performed By: #### C BC #### [facility] [address] [place] [address] Dr. Ashlie Hills MCHC (RBC) [Mass/Vol] 32.0 g/dL Normal 29.9-35.2 [facility] Comment on above: Performed By: #### C BC #### [facility] [address] [place] [address] Dr. Ashlie Hills MCV (RBC) [Entitic vol] 91.8 fL Normal 81.0-99.0 [facility] Comment on above: Performed By: #### C BC #### [facility] [address] [place] [address] Dr. Ashlie Hills MONO # 0.8 103/ul Normal 0.3-0.8 [facility] Comment on above: Performed By: #### C BC #### [facility] [address] [place] [address] Dr. Ashlie Hills Monocytes/100 WBC (Bld) 4.8 % Normal 1.7-12.0 [facility] Comment on above: Performed By: #### C BC #### [facility] [address] [place] [address] Dr. Ashlie Hills NEUT # 9.3 103/ul Critically high 1.4-6.5 [facility] Comment on above: Performed By: #### C BC #### [facility] [address] [place] [address] Dr. Ashlie Hills Neutrophils/100 WBC (Bld) 56.5 % Normal 43.0-75.0 [facility] Comment on above: Performed By: #### C BC #### [facility] [address] [place] [address] Dr. Ashlie Hills Platelet mean volume (Bld) [ Entitic vol] 12.9 fL Normal 9.5-13.[address] [facility] Comment on above: Performed By: #### C BC #### [facility] [address] [address] [address] Ashlie Hills PLT 127 103/ul Critically low 150-450 [facility] Comment on above: Performed By: #### C BC #### [facility] [address] [address] [address] Ashlie Hills RBC 6.09 106/ul Critically high 4.20-5.40 [facility] Comment on above: Performed By: #### C BC #### [facility] [address] [address] [address] Ashlie Hills WBC 16.4 103/ul Critically high 4.0-11.0 [facility] Comment on above: Performed By: #### C BC #### [facility] [address] [place] [address] ABD/PELVIS WO CONon 12-24 CT ABD/PELVIS WO CON Begin Addendum #1 Mildly enlarged left common iliac lymph node and external iliac lymph node of uncertain clinical significance as in the body of the report. This was not included in the final impression. Original Report CT ABD/PELVIS WO CON: 12/24/2021 1:33 AM EDT CLINICAL HISTORY: 51 years old Female with CALCULUS OF KIDNEY. TECHNIQUE: Axial CT images through the abdomen and pelvis are obtained without the intravenous administration of contrast. Coronal and sagittal reformations are also obtained. Dose reduction techniques were achieved by using automated exposure control and/or adjustment of mA and/or kV according to patient size and/or use of iterative reconstruction technique. COMPARISON: CT abdomen pelvis performed 10/21/2018 images with written report not available. FINDINGS: The lung bases are clear with no dependent infiltrate or effusion. Without the use of IV or oral contrast the study is limited by incomplete evaluation of the blood vessels, solid visceral organs and bowel. Cholecystectomy clips are present with the gallbladder surgically absent. The liver is mildly enlarged at 21.6 cm in greatest longitudinal diameter and diffusely hypoattenuating suggesting hepatic steatosis without focal abnormality. Cholecystectomy clips are present with the gallbladder surgically absent. No intrahepatic or extrahepatic biliary ductal dilatation is present. Rounded fat containing mass of the left adrenal gland measuring 3.3 x 2.8 cm is present compatible with adrenal angiomyolipoma. The spleen, pancreas and right adrenal gland are unremarkable. No hydronephrosis bilaterally. Punctate nonobstructing left renal calculus at the lower pole is present. The bilateral ureters demonstrate no gross abnormality or obstruction. The stomach and small bowel are unremarkable. The appendix is visualized without inflammatory change. A few diverticula of the descending and sigmoid colon are present without focal inflammatory change. The bladder appears unremarkable. There is no evidence of aortic aneurysm. Borderline enlarged left common iliac lymph node measures 1.0 cm in short axis diameter as well as adjacent prominent nonenlarged lymph nodes. Mildly enlarged left external iliac node measures 1.1 cm in short axis diameter. No free air or free fluid is seen. The uterus is surgically absent. Severe degenerative change of the right hip is present with osseous remodeling. Grade 1 anterolisthesis of L4 in relation to L5 is present with vacuum disc phenomena L3-L4 through L5-S1. Lumbar facet arthropathy. No compression fracture deformity or suspicious osseous abnormality identified. IMPRESSION: 1. No acute intraabdominal process identified. No hydronephrosis or ureteral calculi. 2. Hepatomegaly and hepatic steatosis. 3. Punctate nonobstructing left renal 4. Left adrenal angiomyolipoma. 5. Mild diverticulosis without diverticulitis. Severe right hip degenerative change. Normal [facility] ER URINE PROFILEon 2 Bilirubin Ql (U) Negative Normal NEGATIVE [facility] Comment on above: Performed By: #### E EVONNE LYMAN #### [facility] [address] [place] [address] Dr. Ashlie Hills Clarity (U) CLEAR Normal CLEAR [facility] Comment on above: Performed By: #### EVONNE DIAZ #### [facility] [address] [address] [address] Ashlie Hills Color (U) DK. ORANGE Abnormal YELLOW [facility] Comment on above: Performed By: #### E EVONNE LYMAN #### [facility] [address] [address] [address] Ashlie HOBBS A micrscopic examina tion will be performed if indicated. Normal [facility] l Comment on above: Performed By: #### MADELINE DIAZRO #### [facility] [address] [place] [address] Dr. Ashlie Hills Glucose Ql (U) 250 mg/dl Abnormal NEGATIVE [facility] Comment on above: Performed By: #### Tracey LYMAN UMICRO #### [facility] [address] [place] [address] Dr. Ashlie Hills Hemoglobin Ql (U) Negative Normal NEGATIVE [facility] Comment on above: Performed By: #### Tracey LYMAN UMICRO #### [facility] [address] [place] [address] Dr. Ashlie Hills Ketones Ql (U) Negative Normal NEGATIVE [facility] Comment on above: Performed By: #### PEREZ DIAZICRO #### [facility] [address] [place] [address] Dr. Ashlie Hills LEUKOCYTES Negative Normal NEGATIVE [facility] Comment on above: Performed By: #### PEREZ DIAZICRO #### [facility] [address] [place] [address] Dr. Ashlie Hills Nitrite Ql (U) Negative Normal NEGATIVE [facility] Comment on above: Performed By: #### Tracey LYMAN UMICRO #### [facility] [address] [place] [address] Dr. Ashlie Hills pH (U) 5.0 [pH] Normal 5-9 [facility] Comment on above: Performed By: #### Tracey LYMAN UMICRO #### [facility] [address] [place] [address] Dr. Ashlie Hills Protein (U) [Mass/Vol] 100 mg/dL Abnormal NEGATIVE/ TRA CE [facility] Comment on above: Performed By: #### Traecy LYMAN UMICRO #### [facility] [address] [place] [address] Dr. Ashlie Hills SPEC GRAVITY >=1.030 Abnormal 1.005-<=1.025 [facility] Comment on above: Performed By: #### EVONNE DIAZ #### [facility] [address] [place] [address] Dr. Ashlie Hills UR MICRO IND INDICATED Normal [facility] Comment on above: Performed By: #### EVONEN DIAZ #### [facility] [address] [place] [address] Dr. Ashlie Hills Urobilinogen Qn (U) 1.0 {Little'U}/dL Normal 0.2 - 1. 0 [facility] Comment on above: Performed By: #### EVONNE DIAZ #### [facility] [address] [place] [address] Dr. Ashlie Hills PROF CHEM 8 (BAS METB)on Anion gap [Moles/Vol] 12.1 mmol/L Normal [facility] Comment on above: Performed By: #### I NFLUAB #### [facility] [address] [place] [address] Dr. Ashlie Hills Calcium [Mass/Vol] 9.0 mg/dL Normal 8.5-10.1 [facility] Comment on above: Performed By: #### I NFLUAB #### [facility] [address] [place] [address] Dr. Ashlie Hills Chloride [Moles/Vol] 101 mmol/L Normal 98-107 [facility] Comment on above: Performed By: #### I NFLUAB #### [facility] [address] [place] [address] Dr. Ashlie Hills CO2 [Moles/Vol] 29.1 mmol/L Normal 21.0-32.0 [facility] Comment on above: Performed By: #### I NFLUAB #### [facility] [address] [place] [address] Dr. Ashlie Hills Creatinine [Mass/Vol] 0.86 mg/dL Normal 0.55-1.02 [facility] Comment on above: Performed By: #### I NFLUAB #### [facility] [address] [address] [address] Ashlie Hills EGFR-AF KITTITIAN >60 Normal >=60 [facility] Comment on above: Performed By: #### I NFLUAB #### [facility] [address] [address] [address] Ashlie Hills EGFR-NON AF KITTITIAN >60 Normal >=60 [facility] Comment on above: Performed By: #### I NFLUAB #### [facility] [address] [address] [address] Ashlie Hills Glucose [Mass/Vol] 236 mg/dL Critically high 74-106 [facility] Comment on above: Performed By: #### I NFLUAB #### [facility] [address] [place] [address] Dr. Ashlie Hills Potassium [Moles/Vol] 4.2 mmol/L Normal 3.5-5.1 [facility] Comment on above: Performed By: #### I NFLUAB #### [facility] [address] [address] [address] Ashlie Hills Sodium [Moles/Vol] 138 mmol/L Normal 136-145 [facility] Comment on above: Performed By: #### I NFLUAB #### [facility] [address] [place] [address] Dr. Ashlie Hills Urea nitrogen [Mass/Vol] 11.0 mg/dL Normal 7.0-18.0 [facility] Comment on above: Performed By: #### I NFLUAB #### [facility] [address] [address] [address] Ashlie Hills Urea nitrogen/Creatinine [Mass ratio] 12.8 mg/mg Normal [facility] Comment on above: Performed By: #### I NFLUAB #### [facility] [address] [address] [address] Ashlie Hills URINE MICROSCOPIC ONLYon BACTERIA SMALL Abnormal NONE SEEN [facility] Comment on above: Performed By: #### E EVONNE LYMAN #### [facility] [address] [place] [address] Dr. Ashlie Hills Bacteria identified Cx Nom (U) INDICATED Normal [facility] Comment on above: Performed By: #### Tracey LYMAN UMICRO #### [facility] [address] [place] [address] Dr. Ashlie Hills CAST NONE SEEN Normal NONE SEEN [facility] Comment on above: Performed By: #### Tracey LYMAN UMICRO #### [facility] [address] [place] [address] Dr. Ashlie Hills Crystals LM Nom (Urine sed) NONE SEEN Normal NONE SEE N [facility] Comment on above: Performed By: #### Tracey LYMAN UMICRO #### [facility] [address] [place] [address] Dr. Ashlie Hills Epithelial cells LM Ql (Urin e sed) MODERATE Abnormal NONE SEEN /RARE [facility] pital Comment on above: Performed By: #### Tracey LYMAN UMICRO #### [facility] [address] [place] [address] Dr. Ashlie Hills MUCOUS NONE SEEN Normal NONE SEEN [facility] Comment on above: Performed By: #### Tracey LYMAN UMICRO #### [facility] [address] [place] [address] Dr. Ashlie Hills RBC 0-2 Normal 0-2 [facility] Comment on above: Performed By: #### Tracey LYMAN UMICRO #### [facility] [address] [place] [address] Dr. Ashlie Hills WBC 0-2 Abnormal NONE SEEN [facility] Comment on above: Performed By: #### Tracey LYMAN UMICRO #### [facility] [address] [place] [address] Dr. Ashlie Hills YEAST PRESENT Abnormal NONE SEEN [facility] Comment on above: Performed By: #### Tracey LYMAN UMICRO #### [facility] [address] [place] [address] Dr. Ashlie Hills HIP RIGHT 1 OR 2 VWS WITH PE LVISon 07-20-2020 HIP RIGHT 1 OR 2 VWS WITH PELVIS [facility] Department of Radiology [address] [place] [address] Patient Name: MITZI MACIAS : 1970 Sex: F Age: Race: White Pt. Location: Patient Status: O Ordered Date: 07/20/2020 1:45:00 PM Completed Date: 07/20/2020 01:57 PM Requesting Provider: LIZ EISENBERG Attending Provider: LIZ EISENBERG Report Copy To: LUIS M CHAND Signs & Symptoms: M25.551 Pain in right hip I10 History: Bethany Comments: evaluate Exam: HIP RIGHT 1 OR 2 VWS WITH PELVIS HIP RIGHT 1 OR 2 VWS WITH PELVIS HISTORY: Hip pain. COMPARISON: None. IMPRESSION: 1. Severe right hip arthritis with unremarkable articulation and subchondral sclerosis/osteophyte formation with femoral head flattening. 2. Within limits of osteopenia no acute fracture. No malalignment. If there is concern for occult fracture, consider further evaluation with MRI. Electronically signed: Pipo Acevedo. Transcribed by: [email or web address], User Resident: Electronically Signed by: PIPO ACEVEDO @ 07/20/2020 03:45 PM Normal [facility] Comment on above: Order Comment: evalu ate Vital Signs Date Time Vital Sign Value Performing Clinician Facility 03-08-2022 15:00-0400 Body height 170.18 cm Stephanie Tico Other [facility] Other 03-08-2022 15:00-0400 Body temperature 97.6 [degF] Stephanie Tico Other [facility] Other 03-08-2022 15:00-0400 Diastolic blood pressure 72 mm[Hg] Stephanie Tico Other [facility] Other 03-08-2022 15:00-0400 Respiratory rate 20 /min Stephanie Tico Other [facility] Other 03-08-2022 15:00-0400 SaO2% (BldA) [Mass fraction] 91 % Stephanie Tico Other [facility] Other 03-08-2022 15:00-0400 Systolic blood pressure 131 mm[Hg] Stephanie Tico Other [facility] Other 02-20-2022 09:20-0400 Body height 170.18 cm Stephanie Tico Other [facility] Other 02-20-2022 09:20-0400 Body temperature 96.5 [degF] Stephanie Tico Other [facility] Other 02-20-2022 09:20-0400 Diastolic blood pressure 69 mm[Hg] Stephanie Tico Other [facility] Other 02-20-2022 09:20-0400 Respiratory rate 20 /min Stephanie Tico Other [facility] Other 02-20-2022 09:20-0400 SaO2% (BldA) [Mass fraction] 91 % Stephanie Tico Other [facility] Other 02-20-2022 09:20-0400 Systolic blood pressure 129 mm[Hg] Stephanie Tico Other [facility] Other 02-06-2022 10:24-0400 Blood Pressure Location Elbertprince VARGAS [employer] [facility] 02-06-2022 10:24-0400 Diastolic blood pressure 76 mm[Hg] Elbert VARGAS [facility] 02-06-2022 10:24-0400 Heart rate 70 /min Elbert VARGAS [employer] [facility] 02-06-2022 10:24-0400 Respiratory rate 16 /min Elbertprince VARGAS [employer] [facility] [facility] 02-06-2022 10:24-0400 Systolic blood pressure 134 mm[Hg] Elbert VARGAS [employer] [facility] [employer] Encounters Encounter Date Encounter Type Care Provider Facility Start: 04-22-2024 ambulatory GAVIOTA Maysi ty:SHEA Villalobos Start: 12-05-2022 ambulatory NARENDRANATH LAKSHMIPATHY . Facility:[facility] Start: 12-05-2022 End: 12-06-2022 Evaluation and management of inpatient UMBERTO ALONDRA . Facility: Start: 11-23-2022 End: 11-23-2022 ambulatory LINOLEUM LAYER HELPER LUIS M LARAJODIE Facility:[facility] Start: 11-22-2022 End: 11-23-2022 ambulatory LINOLEUM LAYER HELPER LUIS M [facility] Facility:[facility] Start: 11-17-2022 End: 11-18-2022 ambulatory SUBHASH GASPAR . Facility:[facility] Start: 11-15-2022 End: 11-16-2022 [facility] Start: 11-15-2022 End: 11-15-2022 Patient encounter procedure GAVIOTA VEGA [facility] Start: 10-05-2022 End: 10-05-2022 ambulatory MARIANO DIAB . Facility:[facility] Start: 09-21-2022 End: 09-21-2022 ambulatory SAYDA CHAND Facility:[facility] Start: 09-14-2022 ambulatory RAFAEL ROLAN Ribera y:[facility] Start: 08-24-2022 End: [address] CHAPARRO MORTENSEN . Facility:[facility] Start: 08-21-2022 End: 08-22-2022 ambulatory HATTIE BRODERICK Facility:[facility] Start: 07-27-2022 End: 07-28-2022 ambulatory CECILIA MILANLYTray . Facility:[facility] Start: 07-18-2022 End: 07-19-2022 ambulatory CECILIA TAMLYTray . Facility:[facility] Start: 07-18-2022 End: 07-19-2022 ambulatory HATTIE BRODERICK Facility:[facility] Start: 07-06-2022 End: 07-06-2022 ambulatory SAYDA CHAND Facility:[facility] Start: 05-11-2022 End: 05-12-2022 ambulatory GIL VALENZUELA . Facility:[facility] Start: 04-25-2022 End: 04-25-[address] CHAPARRO MORTENSEN . Facility:[facility] Start: 04-20-2022 End: 04-21-2022 ambulatory GIL VALENZUELA . Facility:[facility] Start: 03-08-2022 End: 03-08-2022 ambulatory Stephanie Tico Other [facility] Other Start: 03-08-2022 Office outpatient vi sit 15 minutes Stephanie Tico [facility] Start: 03-03-2022 End: 08-27-2022 ambulatory SAYDA CHAND Facility:[facility] Start: 02-20-2022 End: 02-20-2022 ambulatory Stephanie Tico Other [facility] Other Start: 02-20-2022 Office outpatient ne w 45 minutes Stephanie Tico [facility] Start: 02-06-2022 ambulatory GAVIOTA VEGA Facility :[facility] Start: 02-06-2022 End: 02-07-2022 ambulatory LUIS MTaryn BERMUDEZCayetanoJODIE Facility:[facility] Start: 02-06-2022 End: 02-06-2022 Patient encounter procedure Elbert VARGAS [facility] Start: 01-19-2022 End: 01-20-2022 ambulatory GIL VALENZUELA . Facility: Start: 01-05-2022 ambulatory GAVIOTA SILVIA Facility :[facility] Start: 12-24-2021 End: 12-24-2021 ambulatory OLE RAMIREZ Facility: Start: 08-26-2020 End: 09-10-2020 Patient encounter procedure MARY TAVERAS Facility:[facility] Start: 10-30-2019 End: 10-30-2019 Emergency department patient visit [facility] Start: 10-30-2019 End: 10-30-2019 Emergency department patient visit [facility] Start: 11-02-2016 Preoperative state Stephanie Tico Other [employer] Other Procedures Date Procedure Procedure Detail Performing Clinician H/O: hysterectomy Elbert LARA Laparoscopic cholecystectomy Elbert VARGAS Operative procedure on foot Elbert VARGAS Plan of Treatment Date Care Activity Detail Author Start: 03-09-2020 Influenza vaccination Flu vacc ine (Season Ended) [place], [place] Start: 2010 Lipid panel Lipid screen [place], [place] Start: 1991 Screening for malign ant neoplasm of cervix Cervical cancer screen [place], [place] Start: 1989 DTaP/Tdap/Td vaccine (1 - Tdap) DTaP/Tdap/Td vaccine (1 - Tdap) [place] Start: 1985 HIV screening HIV screen Shantelle Alvarado [place], [place] Immunizations Immunization Date Immunization Notes Care Provider Fa cilisunita 07-19-2021 SARS-CoV-2 (COVID-19 ) mRNA BNT-162b2 vax [facility] [employer] [facility] 10-28-2020 SARS-CoV-2 (COVID-19 ) mRNA BNT-162b2 vax [employer]en [employer] Anais [facility] 10-08-2020 SARS-CoV-2 (COVID-19 ) mRNA BNT-162b2 [place] [facility] Payers Date Payer Category Payer Unknown [id number] 2.16.8 [id number] 1970 Unknown [id number] 2.16.8 40.1.858192.3.579.2.727 1970 Unknown [id number] 2.16.8 40.1.987349.3.579.2.727 1970 Unknown [id number] 2.16.8 40.1.526808.3.579.2.727 1970 Unknown [id number] 2.16.8 40.1.704677.3.579.2.727 1970 Unknown [id number] 2.16.84 0.1.539261.3.579.2.593 1970 Unknown [id number] 2.16.84 0.1.863114.3.579.2.593 1970 Unknown [id number] 2.16.84 0.1.671101.3.579.2.593 1970 Unknown [id number] 2.16.84 0.1.640168.3.579.2.593 1970 Unknown [id number] 2.16.84 0.1.148530.3.579.2.593 1970 Unknown [id number] 2.16.84 0.1.561749.3.579.2.593 1970 Unknown [id number] 2.16.84 0.1.245028.3.579.2.593 1970 Unknown [id number] .16.84 0.1.620750.3.579.2.593 1970 Unknown [id number] 2.16.84 0.1.229761.3.579.2.593 1970 Unknown [id number] .16.84 0.1.534054.3.579.2.593 1970 Unknown [id number] 2.16.84 0.1.667022.3.579.2.593 1970 Unknown [id number] .16.84 0.1.623645.3.579.2.593 1970 Unknown [id number] .16.84 0.1.509086.3.579.2.593 1970 Unknown [id number] .16.84 0.1.572990.3.579.2.593 1970 Unknown [id number] .16.84 0.1.573746.3.579.2.593 1970 Unknown [id number] .16.84 0.1.435739.3.579.2.593 1970 Unknown [id number] .16.84 0.1.768373.3.579.2.593 1970 Unknown [id number] .16.84 0.1.282822.3.579.2.593 1970 Unknown [id number] 2.16.84 0.1.323871.3.579.2.593 1970 Unknown [id number] 2.16.84 0.1.960041.3.579.2.593 1970 Unknown [id number] 2.16.84 0.1.940141.3.579.2.593 1970 Unknown [id number] 2.16.84 0.1.210100.3.579.2.593 1959 Medicaid [id number] 1959 Private Health Insurance [id number] 1959 Unknown [id number] 2.1 6.840.1.089332.19 Social History Date Type Detail Facility Start: 02-17-1994 [facility] [place] Start: 02-17-1994 History of tobacco use Cigarette Smo ker [place] Start: 02-17-2014 Cigarettes smoked current (pack per day) - Reported [place] Start: 02-17-2014 Alcohol intake Current drinke r of alcohol (finding) [place] Start: 02-17-2014 Alcohol Comment Rare [place], [place] Sex Assigned At Not on file [place] Exposure to SARS-CoV -2 (event) Unable to assess [place] Start: 02-06-2022 Tobacco smoking status Smoker (findi ng) [facility] Sex Assigned At Female [facility] Start: 11-15-2022 Tobacco smoking status Heavy t obacco smoker (finding) [facility] Functional Status Date Assessment Result Facility 11-15-2022 Functional Status N/A [facility] 02-06-2022 Functional Status N/A [facility] Clinical Notes 01-19-2022 to 11-15-2022 Note Date & Type Note Facility 11-15-2022 Hospital Discharg e instructions Patient Education 11/15/2022 14:09:21 Dietary Guidelines to Help Prevent Kidney Stones Dietary Guidelines to Help Prevent Kidney Stones Kidney stones are deposits of minerals and salts that form inside your kidneys. Your risk of developing kidney stones may be greater depending on your diet, your lifestyle, the medicines you take, and whether you have certain medical conditions. Most people can lower their chances of developing kidney stones by following the instructions below. Your dietitian may give you more specific instructions depending on your overall health and the type of kidney stones you tend to develop. What are tips for following this plan? Reading food labels Choose foods with no salt added or low-salt labels. Limit your salt (sodium) intake to less than 1,500 mg a day. Choose foods with calcium for each meal and snack. Try to eat about 300 mg of calcium at each meal. Foods that contain 200 500 mg of calcium a serving include: ?8 oz (237 mL) of milk, ehnaari-mjnoywwaviqn-usgrf milk, and calcium-fortifiedfruit juice. Calcium-fortified means that calcium has been added to these drinks. ?8 oz (237 mL) of kefir, yogurt, and soy yogurt. ?4 oz (114 g) of tofu. ?1 oz (28 g) of cheese. ?1 cup (150 g) of dried figs. ?1 cup (91 g) of cooked broccoli. ?One 3 oz (85 g) can of sardines or mackerel. Most people need 1,000 1,500 mg of calcium a day. Talk to your dietitian about how much calcium is recommended for you. Shopping Buy plenty of fresh fruits and vegetables. Most people do not need to avoid fruits and vegetables, even if these foods contain nutrients that may contribute to kidney stones. When shopping for convenience foods, choose: ?Whole pieces of fruit. ?Pre-made salads with dressing on the side. ?Low-fat fruit and yogurt smoothies. Avoid buying frozen meals or prepared deli foods. These can be high in sodium. Look for foods with live cultures, such as yogurt and kefir. Choose high-fiber grains, such as whole-wheat breads, oat bran, and wheat cereals. Cooking Do not add salt to food when cooking. Place a salt shaker on the table and allow each person to add his or her own salt to taste. Use vegetable protein, such as beans, textured vegetable protein (TVP), or tofu, instead of meat in pasta, casseroles, and soups. Meal planning Eat less salt, if told by your dietitian. To do this: ?Avoid eating processed or pre-made food. ?Avoid eating fast food. Eat less animal protein, including cheese, meat, poultry, or fish, if told by your dietitian. To do this: ?Limit the number of times you have meat, poultry, fish, or cheese each week. Eat a diet free of meat at least 2 days a week. ?Eat only one serving each day of meat, poultry, fish, or seafood. ?When you prepare animal protein, cut pieces into small portion sizes. For most meat and fish, one serving is about the size of the palm of your hand. Eat at least five servings of fresh fruits and vegetables each day. To do this: ?Keep fruits and vegetables on hand for snacks. ?Eat one piece of fruit or a handful of berries with breakfast. ?Have a salad and fruit at lunch. ?Have two kinds of vegetables at dinner. Limit foods that are high in a substance called oxalate. These include: ?Spinach (cooked), rhubarb, beets, sweet potatoes, and Guamanian chard. ?Peanuts. ?Potato chips, malaysian fries, and baked potatoes with skin on. ?Nuts and nut products. ?Chocolate. If you regularly take a diuretic medicine, make sure to eat at least 1 or 2 servings of fruits or vegetables that are high in potassium each day. These include: ?Avocado. ?Banana. ?Love, prune, carrot, or tomato juice. ?Baked potato. ?Cabbage. ?Beans and split peas. Lifestyle Drink enough fluid to keep your urine pale yellow. This is the most important thing you can do. Spread your fluid intake throughout the day. If you drink alcohol: ?Limit how much you use to: ?0 1 drink a day for women who are not . ?0 2 drinks a day for men. ?Be aware of how much alcohol is in your drink. In the [place] one drink equals one 12 oz bottle of beer (355 mL), one 5 oz glass of wine (148 mL), or one 1 oz glass of hard liquor (44 mL). Lose weight if told by your health care provider. Work with your dietitian to find an eating plan and weight loss strategies that work best for you. General information Talk to your health care provider and dietitian about taking daily supplements. You may be told the following depending on your health and the cause of your kidney stones: ?Not to take supplements with vitamin C. ?To take a calcium supplement. ?To take a daily probiotic supplement. ?To take other supplements such as magnesium, fish oil, or vitamin B6. Take skha-jow-uevucmk and prescription medicines only as told by your health care provider. These include supplements. What foods should I limit? Limit your intake of the following foods, or eat them as told by your dietitian. Vegetables Spinach. Rhubarb. Beets. Canned vegetables. Pickles. Olives. Baked potatoes with skin. Grains Wheat bran. Baked goods. Salted crackers. Cereals high in sugar. Meats and other proteins Nuts. Nut butters. Large portions of meat, poultry, or fish. Salted, precooked, or cured meats, such as sausages, meat loaves, and hot dogs. Dairy Cheese. Beverages Regular soft drinks. Regular vegetable juice. Seasonings and condiments Seasoning blends with salt. Salad dressings. Soy sauce. Ketchup. Barbecue sauce. Other foods Canned soups. Canned pasta sauce. Casseroles. Pizza. Lasagna. Frozen meals. Potato chips. Angolan fries. The items listed above may not be a complete list of foods and beverages you should limit. Contact a dietitian for more information. What foods should I avoid? Talk to your dietitian about specific foods you should avoid based on the type of kidney stones you have and your overall health. Fruits Grapefruit. The item listed above may not be a complete list of foods and beverages you should avoid. Contact a dietitian for more information. Summary Kidney stones are deposits of minerals and salts that form inside your kidneys. You can lower your risk of kidney stones by making changes to your diet. The most important thing you can do is drink enough fluid. Drink enough fluid to keep your urine pale yellow. Talk to your dietitian about how much calcium you should have each day, and eat less salt and animal protein as told by your dietitian. This information is not intended to replace advice given to you by your health care provider. Make sure you discuss any questions you have with your health care provider. Document Revised: 03/06/2022 Document Reviewed: 03/06/2022 [employer] Patient Education 2022 [employer]. Follow Up Care 02/06/2022 11:44:09 With:SILVIA HOWELL, GAVIOTA Webb, URL Address: [address] [place] [address] When: Unknown [facility] 08-24-2022 Note CONSULTATION CONSULTATION DATE: 08/24/2022 HISTORY OF PRESENT ILLNESS: This is a 51-year-old female who returns to the clinic for a three month follow and medication maintenance for lower back pain and right hip pain. The patient does have severe right hip osteoarthritis that we have done right hip injections before. Her last injection was on 04/25/2022 in which she received 50% relief. The patient is well aware she needs a right hip replacement but is non-surgical until she decreases her weight. We maintain her on pain medication with Varina 5/325 t.i.d., diclofenac 75 mg b.i.d. Her PCP manages her on amitriptyline 25 mg q.h.s., duloxetine 60 mg daily and Lyrica 300 mg b.i.d. The patient does present in a wheelchair today, but he does ambulate around her house. She does report any physical activity aggravates her pain, particularly standing and right side lying. She does have diffuse neuropathy to her bilateral feet. She is a diabetic and her most recent A1c was 7.1. Patient's REVIEW OF SYSTEMS / PAST MEDICAL HISTORY / ALLERGIES and IMAGES have been reviewed and noted on the chart. PHYSICAL EXAM: VITAL SIGNS: Blood pressure is 168/77. Heart rate is 77. Temperature is 97.1. She is 5'7 , weighs 368 pounds. This is a 10 pound weight gain since her last appointment. GENERAL IMPRESSION: Pleasant, appropriate, no acute distress, sitting in the wheelchair. FOCUSED EXAM - BACK: Range of motion is guarded in lateral rotation and flexion/extension. Paravertebral muscles are non-spasmodic. Kenisha's point is tender to the right with pain radiating to the hip. Right hip joint with decreased range of motion in adduction, abduction and lateral raises. Point tenderness to deep posterior aspect of the joint. MUSCULOSKELETAL: Bilateral lower extremities motor is 4/5. Muscle disuse noted to quadriceps and hamstrings. Patient stands, walks in the room with a slow, antalgic gait. NEUROLOGICAL: Diffuse neuropathy bilateral lower feet. Non-dermatomal pain pattern. Patient is cognitively intact. Bilateral patellar reflexes are +1. DIAGNOSIS: Chronic pain syndrome, right hip osteoarthritis and chronic lower back pain. PLAN: Will continue to medically manage her at this point. A refill for Varina 5/325 t.i.d. and diclofenac 75 mg b.i.d. will be sent to the pharmacy. Vitamin compliance and nutrition were discussed and enforced. I did highly encourage her to use exercise bands to increase the strength in her lower extremities. We will see her in three months' time, unless otherwise indicated, and patient agrees. [facility] 05-11-2022 Note CONSULTATION CONSULTATION DATE: 05/11/2022 This 51-year-old female returns to the clinic status post right hip joint injection completed on 04/25/2022. The patient states she was afforded 50% relief and is ongoing. The patient is not very active; spends a lot of time sitting. She is ambulatory around her house. She is complaining of pain 6 out of 10 today which to her is an improvement from 9 out of 10. Activities such as standing, walking, bending, stairs, changes in the weather and physical activity aggravate her hip pain. She has seen Ortho in the past and is in need of a total right hip replacement but she needs to improve her weight as well as her A1c. She does report her daily blood sugars have been running around 150. Medications include Lyrica 300 mg b.i.d., Varina 5/325 t.i.d., diclofenac 75 mg b.i.d. and Duloxetine. REVIEW OF SYSTEMS, PAST MEDICAL HISTORY, ALLERGIES AND IMAGES: Have been reviewed and noted in the chart. PHYSICAL EXAM: VITAL SIGNS: Blood pressure 149/79, heart rate is 88, temperature is 97. The patient refused to get height and weight today. GENERAL APPEARANCE: Pleasant, appropriate and in no acute distress. FOCUSED EXAM: The patient preferred not to stand up out of the wheelchair for a hip exam. Therefore, examination was deferred. MUSCULOSKELETAL: While sitting in the chair, push-pulls were 4 out of 5. The patient reports negative polyneuropathy and bilateral patellar and Achilles reflexes were +1. DIAGNOSIS: Chronic pain syndrome, chronic lower back pain, right hip osteoarthritis. PLAN: There will be no changes in her medications today. We will maintain Lyrica, Varina and diclofenac at the set dose and frequency. We will follow-up in the clinic in three months' time. The patient is in agreement to this. Vitamin importance and nutrition were discussed. [facility] 04-20-2022 Note CONSULTATION CONSULTATION DATE: 04/20/2022 HISTORY OF PRESENT ILLNESS: This is a 51-year-old female returning to the clinic status post a trigger point injection to her left lumbar area completed on 01/19/2022, as well as a three month follow up appointment. The patient reported 100% relief from that trigger point injection, which is still current. Her primary location of pain today is her right hip. She has known degenerative pathology there and has seen a bariatric surgeon as well as orthopedic surgeon in the past regarding a right hip replacement. That is on hold pending decreasing and better control of her diabetes and A1c, as well as weight loss. Activities that aggravate her pain are sitting, walking, evening hours, housework, bending and stairs. Sitting and lying down decrease her pain. The patient has had slight weight loss since being placed on Trulicity. She does present in a wheelchair today and she does lead a very sedentary life. Other medications include Tylenol, Lyrica 300 mg b.i.d., Varina 5/325 t.i.d., amitriptyline, diclofenac and duloxetine. Patient's REVIEW OF SYSTEMS / PAST MEDICAL HISTORY / ALLERGIES and IMAGES have been reviewed and they are noted on the chart. PHYSICAL EXAM: VITAL SIGNS: Blood pressure is 169/85. Heart rate is 75. Temperature is 96.9. She is 5'7 , weighs 257 pounds. GENERAL IMPRESSION: Pleasant, appropriate, no acute distress. MUSCULOSKELETAL: Patient has difficulty transitioning from sitting to standing. Muscle disuse noted bilateral lower extremities. Right hip with reproduction of pain symptomatology to adduction, abduction and lateral raises. Range of motion is decreased and guarded. Crepitus is palpated as well. NEUROLOGICAL: Patient is cognitively intact. She has bilateral lower extremity polyneuropathy. Blunted bilateral patellar and Achilles reflexes. DIAGNOSIS: Right hip osteoarthritis, chronic lower back pain and obesity. PLAN: We will move forward with a right sided steroid hip injection. Education was given on nutrition, and she was encouraged to continue with her current vitamin regimen. Patient agrees to move forward with the plan and the procedure will be followed up in the clinic. [facility] 03-08-2022 Evaluation note Encounter Date Diagnosis Assessment Notes Feb, CKD (chronic kidney disease) (ICD-10 - N18.9) She has a CKD likely due to the DM and HTN. I have advised her to avoid NSAIDs. I discussed with the importance of good DM and HTN control to surround the function of CKD. I have advised her to avoid the meloxicam and diclofenac due to the risk of NSAID induced chronic kidney disease. Feb, Proteinuria (ICD-10 - R80.9) She has proteinuria likely due to diabetic kidney disease. She has unremarkable work-up for lupus, hepatitis MPGN or paraproteinemia. . Currently She takes lisinopril I will continue that. 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 Continue Lasix and lisinopril. 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 Souza. Advised to continue work with Dr. Pringle for better sugar control. Feb, Adrenal mass (ICD-10 - E27.9) Continue to follow with Dr. Souza and Dr. Vargas. Feb, Erythrocytosis (ICD-10 - D75.1) He has leukocytosis, erythrocytosis and thrombocytopenia. I discussed with her the option of the hematology referral. She would like the PCP to take care of it. Differential diagnosis of her polycythemia is likely secondary due to the DANIEL. Thrombocytopenia is unclear etiology. [employer] Other 08-15-2022 Evaluation note* Encounter Date Diagnosis Assessment Notes Treatment Notes Treatment Clinical Notes Feb, CKD (chronic kidney disease) (ICD-10 - N18.9) She has a CKD likely due to the DM and HTN. I have advised her to avoid NSAIDs. I discussed with the importance of good DM and HTN control to surround the function of CKD. Feb, Proteinuria (ICD-10 - R80.9) Thanks for referring Mrs. Macias to our office for an evaluation and management of the proteinuria. As you know she has a longstanding DM and likely has a proteinuria due to diabetic kidney disease. Other differential diagnoses are lupus, hepatitis MPGN or paraproteinemia. I have ordered a work-up to rule out these differential diagnoses. Currently She takes lisinopril I will continue that. 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 Continue Lasix and lisinopril. 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 Souza. Advised to continue work with Dr. Pringle for better sugar control. Feb, Adrenal mass (ICD-10 - E27.9) Continue to follow with Dr. Souza and Dr. Vargas. [employer] Other 08-01-2022 Hospital Discharge instructions Patient Education 02/06/2022 11:42:01 Overactive Bladder, Adult Overactive Bladder, Adult Overactive bladder refers to a condition in which a person has a sudden need to pass urine. The person may leak urine if he or she cannot get to the bathroom fast enough (urinary incontinence). A person with this condition may also wake up several times in the night to go to the bathroom. Overactive bladder is associated with poor nerve signals between your bladder and your brain. Your bladder may get the signal to empty before it is full. You may also have very sensitive muscles thatmake your bladder squeeze too soon. These symptoms might interfere with daily work or social activities. What are the causes? This condition may be associated with or caused by: Urinary tract infection. Infection of nearby tissues, such as the prostate. Prostate enlargement. Surgery on the uterus or urethra. Bladder stones, inflammation, or tumors. Drinking too much caffeine or alcohol. Certain medicines, especially medicines that get rid of extra fluid in the body (diuretics). Muscle or nerve weakness, especially from: ?A spinal cord injury. ?Stroke. ?Multiple sclerosis. ?Parkinson's disease. Diabetes. Constipation. What increases the risk? You may be at greater risk for overactive bladder if you: Are an older adult. Smoke. Are going through menopause. Have prostate problems. Have a neurological disease, such as stroke, dementia, Parkinson's disease, or multiple sclerosis (MS). Eat or drink things that irritate the bladder. These include alcohol, spicy food, and caffeine. Are overweight or obese. What are the signs or symptoms? Symptoms of this condition include: Sudden, strong urge to urinate. Leaking urine. Urinating 8 or more times a day. Waking up to urinate 2 or more times a night. How is this diagnosed? Your health care provider may suspect overactive bladder based on your symptoms. He or she will diagnose this condition by: A physical exam and medical history. Blood or urine tests. You might need bladder or urine tests to help determine what is causing your overactive bladder. You might also need to see a health care provider who specializes in urinary tract problems (urologist). How is this treated? Treatment for overactive bladder depends on the cause of your condition and whether it is mild or severe. You can also make lifestyle changes at home. Options include: Bladder training. This may include: ?Learning to control the urge to urinate by following a schedule that directs you to urinate at regular intervals (timed voiding). ?Doing Kegel exercises to strengthen your pelvic floor muscles, which support your bladder. Toning these muscles can help you control urination, even if your bladder muscles are overactive. Special devices. This may include: ?Biofeedback, which uses sensors to help you become aware of your body's signals. ?Electrical stimulation, which uses electrodes placed inside the body (implanted) or outside the body. These electrodes send gentle pulses of electricity to strengthen the nerves or muscles that control the bladder. ?Women may use a plastic device that fits into the vagina and supports the bladder (pessary). Medicines. ?Antibiotics to treat bladder infection. ?Antispasmodics to stop the bladder from releasing urine at the wrong time. ?Tricyclic antidepressants to relax bladder muscles. ?Injections of botulinum toxin type A directly into the bladder tissue to relax bladder muscles. Lifestyle changes. This may include: ?Weight loss. Talk to your health care provider about weight loss methods that would work best for you. ?Diet changes. This may include reducing how much alcohol and caffeine you consume, or drinking fluids at different times of the day. ?Not smoking. Do not use any products that contain nicotine or tobacco, such as cigarettes and e-cigarettes. If you need help quitting, ask your health care provider. Surgery. ?A device may be implanted to help manage the nerve signals that control urination. ?An electrode may be implanted to stimulate electrical signals in the bladder. ?A procedure may be done to change the shape of the bladder. This is done only in very severe cases. Follow these instructions at home: Lifestyle Make any diet or lifestyle changes that are recommended by your health care provider. These may include: ?Drinking less fluid or drinking fluids at different times of the day. ?Cutting down on caffeine or alcohol. ?Doing Kegel exercises. ?Losing weight if needed. ?Eating a healthy and balanced diet to prevent constipation. This may include: ?Eating foods that are high in fiber, such as fresh fruits and vegetables, whole grains, and beans. ?Limiting foods that are high in fat and processed sugars, such as fried and sweet foods. General instructions Take [id number] and prescription medicines only as told by your health care provider. If you were prescribed an antibiotic medicine, take it as told by your health care provider. Do notstop taking the antibiotic even if you start to feel better. Use any implants or pessary as told by your health care provider. If needed, wear pads to absorb urine leakage. Keep a journal or log to track how much and when you drink and when you feel the need to urinate. This will help your health care provider monitor your condition. Keep all follow-up visits as told by your health care provider. This is important. Contact a health care provider if: You have a fever. Your symptoms do not get better with treatment. Your pain and discomfort get worse. You have more frequent urges to urinate. Get help right away if: You are not able to control your bladder. Summary Overactive bladder refers to a condition in which a person has a sudden need to pass urine. Several conditions may lead to an overactive bladder. Treatment for overactive bladder depends on the cause and severity of your condition. Follow your health care provider's instructions about lifestyle changes, doing Kegel exercises, keeping a journal, and taking medicines. This information is not intended to replace advice given to you by your health care provider. Make sure you discuss any questions you have with your health care provider. Document Released: 04/21/2010 Document Revised: 10/16/2019 Document Reviewed: 07/11/2018 [employer] Patient Education 2020 [employer]. Follow Up Care 01/05/2022 12:02:03 With:REGLA PHIPPS, Elbert Joya, URL Address: [facility] [address], [place] [address]- [phone] When:Within 6 Month(s) Comments:w/ repeat CT A/P [facility] 07-14-2022 NoteCONSULTATION PROCEDURE DATE: 01/19/2022 PRE AND POSTOPERATIVE DIAGNOSIS: Left lumbar paravertebral spasms. PROCEDURE: Left lumbar trigger point injections. Subsequent to obtaining informed consent, the patient was placed in the upright standard forward flexion position. Alcohol prep was used to sterilize the site. 25-gauge needle with 0.125% Marcaine and 40 mg of Kenalog was placed in the trigger zone. Negative heme. Medication was injected in the fan-like pattern and the patient tolerated it well. [facility] Signed and Approved by: GIL VALENZUELA . 01/27/2022 14:15:00[facility]07-14-2022 NoteCONSULTATION CONSULTATION DATE: 01/19/2022 This is a 51-year-old female who returns to the clinic for a 3-month follow-up for chronic back and left hip pain. The patient presents today with a 7 out of 10 pain which she describes as dull and achy. The patient stated starting approximately four weeks ago she has had left-sided back and hip muscular pain. She was seen in the ER for the same pain and she was given a Toradol injection. CT scan was done and they found a small cyst on her adrenal gland. Her PCP has set her up with an appointment with Dr. Vargas in Urology on February 06. The patient lives a very sedentary lifestyle and does not participate in exercise or use heat. Activities that aggravate this pain is twisting, pushing, pulling, turning, stairs and bending. The patient does present in a wheelchair today. Medications include Lyrica 300 mg b.i.d., Varina 5/325 t.i.d., diclofenac 75 mg b.i.d. and amitriptyline. The patient denies any new radicular pain or vasomotor changes. REVIEW OF SYSTEMS, PAST MEDICAL HISTORY, ALLERGIES AND IMAGES: Have been reviewed and noted in the chart. PHYSICAL EXAM: VITAL SIGNS: Blood pressure 150/90, heart rate is 97, temperature is 98.2. Height is 5'7 , weighs 160.5 kg. GENERAL APPEARANCE: She is pleasant, appropriate but uncomfortable in the wheelchair, holding her left side FOCUSED EXAM: BACK: Range of motion is guarded in lateral rotation to the left and flexion/extension. Paravertebral muscles are taut with trigger point spasm noted to left lateral paravertebral trapezius and rectus spinae muscle. Compression reproduces the patient's pain symptomatology. Spinoaxial pain is negligible upon compression. Kenisha's point is nontender. MUSCULOSKELETAL: Motor is intact, 3 out of 5 bilaterally; poor muscle quality. NEUROLOGICAL: Radicular sensory is intact. Negative polyneuropathy. DIAGNOSIS: Left lumbar spasm, chronic lower back pain, chronic pain syndrome and obesity. PLAN: U-tox will be done in the office today. A refill for diclofenac 75 mg b.i.d. will be sent. Left lumbar trigger point injection will be done in the office which she does consent to. The patient is encouraged to continue watching her nutrition and being compliant with her multivitamins. The patient agrees to the plan of care and will see her in three months' time unless otherwise indicated. [facility] Signed and Approved by: GIL VALENZUELA . 01/27/2022 14:[facility] Appointments Appointment Date:08/14/2022 09:15:00 AM Scheduled Provider:Elbert VARGAS MD Location:[facility] Appointment Type:URO Office Visit [facility] evaluation + Plan note Future Appointments Appointment Date:04/22/2024 10:00:00 AM Scheduled Provider:GAVIOTA VEGA PA-C Location:[facility] Appointment Type:URO Office Visit [facility] History general Narrative - Reported* Type Description Date Medical History diabetes mallitus Medical History COPD Medical History ADRENAL MASS 1 CM TO 4 CM IN [facility] Medical History ARTHRITIS Medical History ASTHMA Medical History HEADACHE Medical History HYPERTENSION Medical History KIDNEY STONES Medical History LEFT FLANK PAIN Medical History MIXED INCONTINENCE Medical History PROTEINURIA Medical History SMOKER Surgical History hysterectomy 2002 Surgical History toe surgery Surgical History LAPAROSCOPIC CHOLECYSTECTOMY Hospitalization History sepsis 2010 Hospitalization History SEE ABOVE [employer] Other Hospital course Narrative No data available for this section [facility] progress note No data available for this section [facility] reason for referral (narrative) , Referral to Dr. 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 Care Team (unrecognized sect ion and content) Personnel Name: LUIS M CHAND CNP Address: [address] [place] [phone] Personnel Name: LUIS M CHAND CNP Address: Address: [address] [place], [place] [id number] [place] REASON FOR VISIT (unrecogniz ed section and content) PROTEINURIAProteinuria FOR RECORDS PERTAINING TO PATIENTS WHO ARE OR HAVE BEEN ENROLLED IN A CHEMICAL DEPENDENCY/SUBSTANCEABUSE PROGRAM, SOME INFORMATION MAY BE OMITTED. This clinical summary was aggregated from multiple sources. Caution should be exercised in using it in the provision of clinical care. This summary normalizes information from multiple sources, and as a consequence, information in this document may materially change the coding, format and clinical context of patient data. In addition, data may be omitted in some cases. CLINICAL DECISIONS SHOULD BE BASED ON THE PRIMARY CLINICAL RECORDS. [facility] [employer] [facility]. provides no warranty or guarantee of the accuracy or completeness of information in this document.
== END 2023-05-16 11:08 ==
LOC: PM 11:07
PROVIDERS: PCP Nurse Practitioner; Visit Provider Nurse Practitioner
DX: M47.816 Spondylosis without myelopathy or radiculopathy, lumbar region (principal); M16.9 Osteoarthritis of hip, unspecified; G89.4 Chronic pain syndrome; M25.551 Pain in right hip; Z79.891 Long term (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 opiate analgesic
CPT/HCPCS: G0463

== ENCOUNTER 2023-05-17 12:28 | Outpatient (OUT) | payer MEDICARE, OTHER, SELFPAY ==
--- NOTE | 2023-05-17 12:34 | XR_ITS ---
The [address] [address] Patient Name: SINA NICHOLE MRN: [id number] date: 1970 Sex: F Assigned Patient Location: [facility] Current Patient Location: [facility] Accession/Order Number: [id number] Exam Date: 05/17/2023 12:38 Report Date: 05/17/2023 22:21 At the request of: CELESTINA CHIN Procedure: XR lumbar spine min 4V EXAM: XR lumbar spine min 4V HISTORY: Low Back Pain COMPARISON: None. TECHNIQUE: 5 views lumbar spine FINDINGS: There are 5 nonrib-bearing lumbar-type vertebral bodies. No pars defects. Imaged sacroiliac joints are intact. Grade 1 anterolisthesis at L4-5. Vertebral body heights are maintained. Multilevel disc height loss and vacuum disc phenomenon at L3-4, L4-5 and L5-S1 with diffuse facet arthrosis at these levels. Incidental note of aortic vascular calcification. XR/XR lumbar spine min 4V IMPRESSION: Grade 1 anterolisthesis at L4-5. Multilevel degenerative disc disease which is moderate to severe at the lower lumbar levels. Electronically authenticated by: WANDA SARAVIA Date: 05/17/2023 22:21
== END 2023-05-17 12:29 | disposition home or self-care (01) ==
LOC: RAD 12:29
PROVIDERS: PCP Nurse Practitioner; Visit Provider Nurse Practitioner
DX: M54.59 Other low back pain (principal); M51.36 Other intervertebral disc degeneration, lumbar region
CPT/HCPCS: 72110

== ENCOUNTER 2023-06-07 14:27 | Outpatient (REF) | payer MEDICARE, OTHER, MEDICAID, SELFPAY ==
[2023-06-07 15:09] LABS: Influenza Virus A Antigen Negative; Influenza Virus B Antigen Negative; Internal Control Within Normal Limits; SARS-CoV-2 Ag NEGATIVE (NEGATIVE)
[2023-06-08 15:22] LABS: SARS-CoV-2 NAA NOT DETECTED (NOT DETECTE)
--- OUTSIDE RECORDS SUMMARY | 2023-06-27 01:02 | XMS_ITS | CCD ---
Author Name Unknown Address [address] [place] [address] Organization [facility] Care Team Providers Care Packer Dried Beef Name Role Phone Rufino Desouza Primary Care Provider [phone] RUFINO DESOUZA Primary Care Unavailable MARY TAVERAS Admitting Unavailable KYLAHEMARY Attending Unavailable AICHHOLZ, LUIS M Primary Care Unavailable AICHHOLZ, LUIS M Referring Unavailable AICHJODIE, LUIS M J Primary Care Physician Tico, Stephanie Unavailable GAVIOTA VEGA Attending Unavailable GAVIOTA VEGA Attending Unavailable MANNIE LUIS M J Referring Unavailable Elbert VARGAS Attending Unavailable OLE RAMIREZ Attending Unavailable OLE RAMIREZ Consulting Unavailable AICHHOLZ, MANAGER MENTAL HEALTH LUIS M Primary Care Unavailable OLE RAMIREZ Admitting Unavailable ANTONY SHRESTHA Consulting Unavailable ALONDRA ., UMBERTO Admitting Unavailable ALONDRA ., UMBERTO Attending Unavailable AICHHOLZ, MANAGER MENTAL HEALTH LUIS M Primary Care Unavailable AFSANEH Loera, DR BOLANOS Consulting Unavailable MARYANNE POWER Consulting Unavailable GLENN KERR Consulting Unavailable YOMAIRA KERR Consulting Unavailable HATTIE GOFF Consulting Unavailable ALONDRA ., UMBERTO Consulting Unavailable TICO, STEPHANIE Attending Unavailable TICO, STEPHANIE Consulting Unavailable AICHHOLZ, MANAGER MENTAL HEALTH LUIS M Primary Care Unavailable TICO, STEPHANIE Admitting Unavailable VARGAS ., DR DUMONT Admitting Unavailable AICHHOLZ, MANAGER MENTAL HEALTH LUIS M Primary Care Unavailable VARGAS ., DR DUMONT Attending Unavailable VARGAS ., DR DUMONT Consulting Unavailable COLLIN HUERTAS Consulting Unavailable CECILIA KAUFMAN Admitting Unavailable CECILIA AKUFMAN Attending Unavailable AICHHOLZ, MANAGER MENTAL HEALTH LUIS M Primary Care Unavailable RAFAEL GONGORA Attending Unavailable ROLAN, RAFAEL Admitting Unavailable AICHHOLZ, MANAGER MENTAL HEALTH LIUS M Primary Care Unavailable AICHHOLZ, MANAGER MENTAL HEALTH LUIS M Admitting Unavailable AICHHOLZ, MANAGER MENTAL HEALTH LUIS M Primary Care Unavailable AICHHOLZ, MANAGER MENTAL HEALTH LUIS M Attending Unavailable AICHHOLZ, MANAGER MENTAL HEALTH LUIS M Consulting Unavailable LAKSHMIPATHY ., NARENDRANATH Attending Anette vailable LAKSHMIPATHY ., NARENDRANATH Consulting Anette vailable LAKSHMIPATHY ., NARENDRANATH Admitting Anette vailable AICHHOLZ, MANAGER MENTAL HEALTH LUIS M Primary Care Unavailable VALENZUELA ., GIL Consulting Unavailable MORTENSEN ., DR CHAPARRO Aguillon Attending Unavailable MORTENSEN ., DR CHAPARRO Agulilon Admitting Unavailable AICHHOLZ, MANAGER MENTAL HEALTH LUIS M Primary Care Unavailable VALENZUELA ., GIL Consulting Unavailable MORTENSEN ., DR CHAPARRO Aguillon Admitting Unavailable AICHHOLZ, MANAGER MENTAL HEALTH LUIS M Primary Care Unavailable MORTENSEN ., DR CHAPARRO Aguillon Attending Unavailable HALKER ., SUBHASH Consulting Unavailable LAKSHMIPATHY ., NARENDRANATH Admitting Anette vailable LAKSHMIPATHY ., NARENDRANATH Attending Anette vailable AICHHOLZ, MANAGER MENTAL HEALTH LUIS M Primary Care Unavailable MORTENSEN ., DR CHAPARRO Aguillon Attending Unavailable MORTENSEN ., DR CHAPARRO Aguillon Admitting Unavailable VALENZUELA ., GIL Consulting Unavailable AICHHOLZ, MANAGER MENTAL HEALTH LUIS M Primary Care Unavailable VALENZUELA ., GIL Consulting Unavailable MORTENSEN ., DR CHAPARRO Aguillon Attending Unavailable MORTENSEN ., DR CHAPARRO Aguillon Admitting Unavailable AICHHOLZ, MANAGER MENTAL HEALTH LUIS M Primary Care Unavailable HATTIE BRODERICK Attending Unavailable HATTIE BRODERICK Admitting Unavailable AICHHOLZ, MANAGER MENTAL HEALTH LUIS M Primary Care Unavailable AICHHOLZ, MANAGER MENTAL HEALTH LUIS M Admitting Unavailable AICHHOLZ, MANAGER MENTAL HEALTH LUIS M Consulting Unavailable AICHHOLZ, MANAGER MENTAL HEALTH LUIS M Primary Care Unavailable AICHHOLZ, MANAGER MENTAL HEALTH LUIS M Attending Unavailable AICHHOLZ, MANAGER MENTAL HEALTH LUIS M Primary Care Unavailable MISC, DR LESLIE Admitting Unavailable MISC, DR LESLIE Attending Unavailable MISC, DOCTOR Consulting Unavailable DIAB ., MARIANO Admitting Unavailable DIAB ., MARIANO Attending Unavailable DIAB ., MARIANO Consulting Unavailable AICHHOLZ, MANAGER MENTAL HEALTH LUIS M Primary Care Unavailable RASTEGAR, RICCO Consulting Unavailable AICHHOLZ, MANAGER MENTAL HEALTH LUIS M Admitting Unavailable AICHHOLZ, MANAGER MENTAL HEALTH LUIS M Primary Care Unavailable AICHHOLZ, MANAGER MENTAL HEALTH LUIS M Attending Unavailable AICHHOLZ, MANAGER MENTAL HEALTH LUIS M Consulting Unavailable DR PATRICIA IVAN Consulting Unavailable CECILIA KAUFMAN Attending Unavailable CECILIA KAUFMAN Admitting Unavailable DR PATRICIA IVAN Consulting Unavailable [facility] Unavailable CECILIA KAUFMAN Consulting Unavailable FESTUS ., DR CHAPARRO Aguillon Attending Unavailable FESTUS ., DR CHAPARRO Aguillon Consulting Unavailable FESTUS ., DR CHAPARRO Aguillon Admitting Unavailable [facility] Primary Care Unavailable HATTIE BRODERICK Attending Unavailable HATTIE BRODERICK Consulting Unavailable HATTIE BRODERICK Admitting Unavailable [facility] Primary Care Unavailable HATTIE BAUTISTA Unavailable [facility], MANAGER MENTAL HEALTH LUIS M Admitting Unavailable [facility] Attending Unavailable [facility] Consulting Unavailable [facility] Primary Care Unavailable Allergies Allergy Classification Reported Allergen(s) Allergy Type Date of Onset Reaction(s) Facility (1 source) No Known Medication Allergies; 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: [No Known Medication Allergies] Propensity to adverse reactions (disorder) [facility] Repository Medications Current Medications Medication Drug Class(es) Dates Sig (Normalized) Sig (Original) acetaminophen 325 mg / HYDROcodone bitartrate 5 mg oral tablet (4 sources) Opioid Agonist Start: 02-06-2022 acetaminophen-hydr ocodone 325 mg-5 mg oral tablet Refill(s) 0 Start Date: 02/06/22 Status: Ordered take 1 tablet by vandana twice daily as needed [place] 5-325 MG 1 tablet as needed Orally [...] 02-06-2022 Chronic Other aftercare (1 source) Other emt intermediate (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 therapy; 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: [OTH ALF CURRENT DRUG THERAPY] Onset: 12-05-2022 Episodic Other aftercare (1 source) 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 Unclassified (1 source) COMPLIANCE PROFESSIONAL INJECT NONINSULN ANTIDIAB; 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: [COMPLIANCE PROFESSIONAL INJECT NONINSULN ANTIDIAB] Onset: 12-05-2022 Unclassified (3 [...] BASO # 0.0 103/ul Normal 0.0-0.1 [facility] Comment on above: Performed By: #### C BC #### [facility] [address] [address] [address] Ashlie Hills Basophils/100 WBC (Bld) 0.1 % Critically low 0.2-2.0 [facility] Comment on above: Performed By: #### C BC #### [facility] [address] [address] [address] Ashlie Hills EO # 0.0 103/ul Normal 0.0-0.7 [facility] Comment on above: Performed By: #### C BC #### [facility] [address] [address] [address] Ashlie Hills Eosinophils/100 WBC (Bld) 0.0 % Critically low 0.9-7. 0 [facility] Comment on above: Performed By: #### C BC #### [facility] [address] [address] [address] Ashlie Hills Erythrocyte distribution wid th (RBC) [Ratio] 14.9 % Normal 11.0-15.0 [facility] Comment on above: Performed By: #### C BC #### [facility] [address] [address] [address] Ashlie Hills Hematocrit (Bld) [Volume fraction] 46.2 % Normal 3 6.0-48.0 [facility] Comment on above: Performed By: #### C BC #### [facility] [address] [address] [address] Ashlie iHlls Hemoglobin (Bld) [Mass/Vol] 14.7 g/dL Normal 12.0-16. 0 [facility] Comment on above: Performed By: #### C BC #### [facility] [address] [place] [address] Dr. Ashlie Hills IG # 0.06 10e3/ul Critically high 0.00-0.03 [facility] Comment on above: Performed By: #### C BC #### [facility] [address] [place] [address] Dr. Ashlie Hills IG % 0.4 % Normal 0.0-0.5 [facility] Comment on above: Performed By: #### C BC #### [facility] [address] [place] [address] Dr. Ashlie Hills LYMPH # 1.3 103/ul Normal 1.2-3.8 [facility] Comment on above: Performed By: #### C BC #### [facility] [address] [place] [address] Dr. sAhlie Hills Lymphocytes/100 WBC (Bld) 9.4 % Critically low 20.5-6 0.0 [facility] Comment on above: Performed By: #### C BC #### [facility] [address] [place] [address] Dr. Ashlie Hills MANUAL DIFF REQ NO Normal [facility] Comment on above: Performed By: #### C BC #### [facility] [address] [place] [address] Dr. Ashlie Hills MCH (RBC) [Entitic mass] 28.4 pg Normal 26.7-34.0 [facility] Comment on above: Performed By: #### C BC #### [facility] [address] [place] [address] Dr. Ashlie Hills MCHC (RBC) [Mass/Vol] 31.8 g/dL Normal 29.9-35.2 [facility] Comment on above: Performed By: #### C BC #### [facility] [address] [place] [address] Dr. Ashlie Hills MCV (RBC) [Entitic vol] 89.4 fL Normal 81.0-99.0 [facility] Comment on above: Performed By: #### C BC #### [facility] [address] [address] [address] Ashlie Hills MONO # 0.5 103/ul Normal 0.3-0.8 [facility] Comment on above: Performed By: #### C BC #### [facility] [address] [address] [address] Ashlie Hills Monocytes/100 WBC (Bld) 3.4 % Normal 1.7-12.0 [facility] Comment on above: Performed By: #### C BC #### [facility] [address] [place] [address] Dr. Ashlie Hills NEUT # 11.8 103/ul Critically high 1.4-6.5 [facility] Comment on above: Performed By: #### C BC #### [facility] [address] [place] [address] Dr. Ashlie Hills Neutrophils/100 WBC (Bld) 86.7 % Critically high 43.0- 75.0 [facility] Comment on above: Performed By: #### C BC #### [facility] [address] [place] [address] Dr. Ashlie Hills Platelet mean volume (Bld) [ Entitic vol] 12.6 fL Normal 9.5-13.5 [facility] Comment on above: Performed By: #### C BC #### [facility] [address] [place] [address] Dr. Ashlie Hills PLT 133 103/ul Critically low 150-450 [facility] Comment on above: Performed By: #### C BC #### [facility] [address] [place] [address] Dr. Ashlie Hills RBC 5.17 106/ul Normal 4.20-5.40 [facility] Comment on above: Performed By: #### C BC #### [facility] [address] [place] [address] Dr. Ashlie Hills WBC 13.6 103/ul Critically high 4.0-11.0 [facility] Comment on above: Performed By: #### C BC #### [facility] [address] [place] [address] Dr. Ashlie Hills MAGNESIUMon 12-06-2022 Magnesium [Mass/Vol] 2.2 mg/dL Normal 1.8-2.4 [facility] Comment on above: Performed By: #### I NFLUAB #### [facility] [address] [place] [address] Dr. Ashlie Hills POINT OF CARE GLUCOSEon 11-08 Glucose [Mass/Vol] 340 mg/dL Critically high -106 [facility] Comment on above: Performed By: #### P OCGLUC #### [facility] [address] [place] [address] Dr. Ashlie Hills Glucose [Mass/Vol] 276 mg/dL Critically high [facility]106 [facility] Comment on above: Performed By: #### C BC #### [facility] [address] [place] [address] Dr. Ashlie Hills Glucose [Mass/Vol] 333 mg/dL Critically high [facility]106 [facility] Comment on above: Performed By: #### C BC #### [facility] [address] [place] [address] Dr. Ashlie Hills PROF CHEM 8 (BAS METB)on Anion gap [Moles/Vol] 10.9 mmol/L Normal [facility] Comment on above: Performed By: #### I NFLUAB #### [facility] [address] [place] [address] Dr. Ashlie Hills Calcium [Mass/Vol] 9.3 mg/dL Normal 8.5-10.1 [facility] Comment on above: Performed By: #### I NFLUAB #### [facility] [address] [place] [address] Dr. Ashlie Hills Chloride [Moles/Vol] 103 mmol/L Normal 98-107 [facility] Comment on above: Performed By: #### I NFLUAB #### [facility] [address] [place] [address] Dr. Ashlie Hills CO2 [Moles/Vol] 31.2 mmol/L Normal 21.0-32.0 [facility] Comment on above: Performed By: #### I NFLUAB #### [facility] [address] [place] [address] Dr. Ashlie Hills Creatinine [Mass/Vol] 0.96 mg/dL Normal 0.55-1.02 [facility] Comment on above: Performed By: #### I NFLUAB #### [facility] [address] [address] [address] Ashlie Hills EGFR-AF PERUVIAN >60 Normal >=60 [facility] Comment on above: Performed By: #### I NFLUAB #### [facility] [address] [place] [address] Dr. Ashlie Hills EGFR-NON AF PERUVIAN >60 Normal >=60 [facility] Comment on above: Performed By: #### I NFLUAB #### [facility] [address] [place] [address] Dr. Ashlie Hills Glucose [Mass/Vol] 288 mg/dL Critically high 74-106 [facility] Comment on above: Performed By: #### I NFLUAB #### [facility] [address] [place] [address] Dr. Ashlie Hills Potassium [Moles/Vol] 5.1 mmol/L Normal 3.5-5.1 [facility] Comment on above: Performed By: #### I NFLUAB #### [facility] [address] [place] [address] Dr. Ashlie Hills Sodium [Moles/Vol] 140 mmol/L Normal 136-145 [facility] Comment on above: Performed By: #### I NFLUAB #### [facility] [address] [place] [address] Dr. Ashlie Hills Urea nitrogen [Mass/Vol] 30.0 mg/dL Critically high 7.0-18 .0 [facility] Comment on above: Performed By: #### I NFLUAB #### [facility] [address] [place] [address] Dr. Ashlie Hills Urea nitrogen/Creatinine [Mass ratio] 31.2 mg/mg Normal [facility] Comment on above: Performed By: #### I NFLUAB #### [facility] [address] [place] [address] Dr. Ashlie Hills CBC AUTO DIFFon 12-05-2022 BASO # 0.0 103/ul Normal 0.0-0.1 [facility] Comment on above: Performed By: #### C BC #### [facility] [address] [place] [address] Dr. Ashlie Hills Basophils/100 WBC (Bld) 0.4 % Normal 0.2-2.0 [facility] Comment on above: Performed By: #### C BC #### [facility] [address] [place] [address] Dr. Ashlie Hills EO # 0.0 103/ul Normal 0.0-0.7 [facility] Comment on above: Performed By: #### C BC #### [facility] [address] [place] [address] Dr. Ashlie Hills Eosinophils/100 WBC (Bld) 0.0 % Critically low 0.9-7. 0 [facility] Comment on above: Performed By: #### C BC #### [facility] [address] [place] [address] Dr. Ashlie Hills Erythrocyte distribution wid th (RBC) [Ratio] 14.8 % Normal 11.0-15.0 [facility] Comment on above: Performed By: #### C BC #### [facility] [address] [place] [address] Dr. Ashlie Hills Hematocrit (Bld) [Volume fraction] 49.9 % Critically high 36.0-48.0 [facility] Comment on above: Performed By: #### C BC #### [facility] [address] [place] [address] Dr. Ashlie Hills Hemoglobin (Bld) [Mass/Vol] 15.7 g/dL Normal 12.0-16. 0 [facility] Comment on above: Performed By: #### C BC #### [facility] [address] [address] [address] Ashlie Hills IG # 0.04 10e3/ul Critically high 0.00-0.03 [facility] Comment on above: Performed By: #### C BC #### [facility] [address] [address] [address] Ashlie Hills IG % 0.5 % Normal 0.0-0.5 [facility] Comment on above: Performed By: #### C BC #### [facility] [address] [place] [address] Dr. Ashlie Hills LYMPH # 1.1 103/ul Critically low 1.2-3.8 [facility] Comment on above: Performed By: #### C BC #### [facility] [address] [place] [address] Dr. Ashlie Hills Lymphocytes/100 WBC (Bld) 12.7 % Critically low 20.5-6 0.0 [facility] Comment on above: Performed By: #### C BC #### [facility] [address] [place] [address] Dr. Ashlie Hills MANUAL DIFF REQ NO Normal [facility] Comment on above: Performed By: #### C BC #### [facility] [address] [place] [address] Dr. Ashlie Hills MCH (RBC) [Entitic mass] 28.1 pg Normal 26.7-34.0 [facility] Comment on above: Performed By: #### C BC #### [facility] [address] [place] [address] Dr. Ashlie Hills MCHC (RBC) [Mass/Vol] 31.5 g/dL Normal 29.9-35.2 [facility] Comment on above: Performed By: #### C BC #### [facility] [address] [place] [address] Dr. Ashlie Hills MCV (RBC) [Entitic vol] 89.3 fL Normal 81.0-99.0 [facility] Comment on above: Performed By: #### C BC #### [facility] [address] [address] [address] Ashlie Hills MONO # 0.1 103/ul Critically low 0.3-0.8 [facility] Comment on above: Performed By: #### C BC #### [facility] [address] [place] [address] Dr. Ashlie Hills Monocytes/100 WBC (Bld) 1.3 % Critically low 1.7-12.0 [facility] Comment on above: Performed By: #### C BC #### [facility] [address] [place] [address] Dr. Ashlie Hills NEUT # 7.2 103/ul Critically high 1.4-6.5 [facility] Comment on above: Performed By: #### C BC #### [facility] [address] [place] [address] Dr. Ashlie Hills Neutrophils/100 WBC (Bld) 85.1 % Critically high 43.0- 75.0 [facility] Comment on above: Performed By: #### C BC #### [facility] [address] [place] [address] Dr. Ashlie Hills Platelet mean volume (Bld) [ Entitic vol] 12.2 fL Normal 9.5-13.5 [facility] Comment on above: Performed By: #### C BC #### [facility] [address] [place] [address] Dr. Ashlie Hills PLT 116 103/ul Critically low 150-450 [facility] Comment on above: Performed By: #### C BC #### [facility] [address] [place] [address] Dr. Ashlie Hills RBC 5.59 106/ul Critically high 4.20-5.40 [facility] Comment on above: Performed By: #### C BC #### [facility] [address] [place] [address] Dr. Ashlie Hills WBC 8.5 103/ul Normal 4.0-11.0 [facility] Comment on above: Performed By: #### C BC #### [facility] [address] [place] [address] Dr. Ashlie Hills CTA CHEST WO W CONon 023 [...] by: HATTIE GOFF Date: 2022-12-05 01:52 Normal [facility] MAGNESIUMon 12-05-2022 Magnesium [Mass/Vol] 2.1 mg/dL Normal 1.8-2.4 [facility] Comment on above: Performed By: #### P OCGLUC #### [facility] [address] [address] [address] Ashlie Hills POINT OF CARE GLUCOSEon 11-08 Glucose [Mass/Vol] 293 mg/dL Critically high 74-106 T [facility] Comment on above: Performed By: #### P OCGLUC #### [facility] [address] [address] [address] Ashlie Hills Glucose [Mass/Vol] 269 mg/dL Critically high 74-106 [facility] Comment on above: Performed By: #### P OCGLUC #### [facility] [address] [address] [address] Ashlie Hills Glucose [Mass/Vol] 223 mg/dL Critically high 74-106 [facility] Comment on above: Performed By: #### C VDAGS #### [facility] [address] [address] [address] Ashlie Hills PROF CHEM 8 (BAS METB)on Anion gap [Moles/Vol] 11.6 mmol/L Normal [facility] Comment on above: Performed By: #### P OCGLUC #### [facility] [address] [place] [address] Dr. Ashlie Hills Calcium [Mass/Vol] 9.2 mg/dL Normal 8.5-10.1 [facility] Comment on above: Performed By: #### P OCGLUC #### [facility] [address] [address] [address] Ashlie Hills Chloride [Moles/Vol] 102 mmol/L Normal 98-107 [facility] Comment on above: Performed By: #### P OCGLUC #### [facility] [address] [place] [address] Dr. Ashlie Hills CO2 [Moles/Vol] 28.7 mmol/L Normal 21.0-32.0 [facility] Comment on above: Performed By: #### P OCGLUC #### [facility] [address] [place] [address] Dr. Ashlie Hills Creatinine [Mass/Vol] 1.04 mg/dL Critically high 0.55-1.02 [facility] Comment on above: Performed By: #### P OCGLUC #### [facility] [address] [place] [address] Dr. Ashlie Hills EGFR-AF PERUVIAN >60 Normal >=60 [facility] Comment on above: Performed By: #### P OCGLUC #### [facility] [address] [address] [address] Ashlie Hills EGFR-NON AF PERUVIAN 56 mL/min/1.73m2 Critically low >=60 [facility] Comment on above: Performed By: #### P OCGLUC #### [facility] [address] [address] [address] Ashlie Hills Glucose [Mass/Vol] 231 mg/dL Critically high 74-106 T [facility] Comment on above: Performed By: #### P OCGLUC #### [facility] [address] [address] [address] Ashlie Hills Potassium [Moles/Vol] 4.3 mmol/L Normal 3.5-5.1 [facility] Comment on above: Performed By: #### P OCGLUC #### [facility] [address] [address] [address] Ashlie Hills Sodium [Moles/Vol] 138 mmol/L Normal 136-145 [facility] Comment on above: Performed By: #### P OCGLUC #### [facility] [address] [address] [address] Ashlie Hills Urea nitrogen [Mass/Vol] 17.0 mg/dL Normal 7.0-18.0 [facility] Comment on above: Performed By: #### P OCGLUC #### [facility] [address] [address] [address] Ashlie Hills Urea nitrogen/Creatinine [Mass ratio] 16.3 mg/mg Normal [facility] Comment on above: Performed By: #### P OCGLUC #### [facility] [address] [address] [address] Ashlie Hills RESPIRATORY PANEL PLUSon Adenovirus Not detected Normal NOT DETECTED [facility] Comment on above: Performed By: #### C VDAGS #### [facility] [address] [address] [address] Ashlie Hills B. Parapertusis Not detected Normal NOT DETECTED [facility] Comment on above: Performed By: #### C VDAGS #### [facility] [address] [place] [address] Dr. Ashlie Max Pertussis Not detected Normal NOT DETECTED [facility] Comment on above: Performed By: #### C VDAGS #### [facility] [address] [place] [address] Dr. Ashlie Hills Chlamydia Pneumoniae Not detected Normal NOT DETECTED [facility] Comment on above: Performed By: #### C VDAGS #### [facility] [address] [place] [address] Dr. Ashlie Hills Coronavirus 229E Not detected Normal NOT DETECTED [facility] Comment on above: Performed By: #### C VDAGS #### [facility] [address] [place] [address] Dr. Ashlie Hills Coronavirus HKU1 Not detected Normal NOT DETECTED [facility] Comment on above: Performed By: #### C VDAGS #### [facility] [address] [place] [address] Dr. Ashlie Hills Coronavirus NL63 Not detected Normal NOT DETECTED [facility] Comment on above: Performed By: #### C VDAGS #### [facility] [address] [place] [address] Dr. Ashlie Hills Coronavirus OC43 Not detected Normal NOT DETECTED [facility] Comment on above: Performed By: #### C VDAGS #### [facility] [address] [place] [address] Dr. Ashlie Hills Influenza A H1 Not detected Normal NOT DETECTED [facility] Comment on above: Performed By: #### C VDAGS #### [facility] [address] [place] [address] Dr. Ashlie Hills Influenza A H1 2009 Not detected Normal NOT DETECTED [facility] Comment on above: Performed By: #### C VDAGS #### [facility] [address] [place] [address] Dr. Ashlie Hills Influenza A H3 Not detected Normal NOT DETECTED [facility] Comment on above: Performed By: #### C VDAGS #### [facility] [address] [place] [address] Dr. Ashlie Hills Influenza B Not detected Normal NOT DETECTED [facility] Comment on above: Performed By: #### C VDAGS #### [facility] [address] [address] [address] Ashlie Hills Metapneumovirus Not detected Normal NOT DETECTED [facility] Comment on above: Performed By: #### C VDAGS #### [facility] [address] [address] [address] Ashlie Hills Mycoplas. Pneumoniae Not detected Normal NOT DETECTED [facility] Comment on above: Performed By: #### C VDAGS #### [facility] [address] [place] [address] Dr. Ashlie Hills Parainfluenza 1 Not detected Normal NOT DETECTED [facility] Comment on above: Performed By: #### C VDAGS #### [facility] [address] [place] [address] Dr. Ashlie Hills Parainfluenza 2 Not detected Normal NOT DETECTED [facility] Comment on above: Performed By: #### C VDAGS #### [facility] [address] [place] [address] Dr. Ashlie Hills Parainfluenza 3 Detected Abnormal NOT DETECTED The [facility] Comment on above: Performed By: #### C VDAGS #### [facility] [address] [place] [address] Dr. Ashlie Hills Parainfluenza 4 Not detected Normal NOT DETECTED [facility] Comment on above: Performed By: #### C VDAGS #### [facility] [address] [place] [address] Dr. Ashlie Hills Rhino/Enterovirus Not detected Normal NOT DETECTED [facility] Comment on above: Performed By: #### C VDAGS #### [facility] [address] [place] [address] Dr. Ashlie DE PAZ Header 1 RESPIRATORY PANEL: VIRUSES Normal [facility] Comment on above: Performed By: #### C VDAGS #### [facility] [address] [place] [address] Dr. Yilan Hills RP2 Header 2 RESPIRATORY PANEL: BACTERIA Normal [facility] Comment on above: Performed By: #### C VDAGS #### [facility] [address] [place] [address] Dr. Ashlie Hills RSV Not detected Normal NOT DETECTED [facility] Comment on above: Performed By: #### C VDAGS #### [facility] [address] [place] [address] Dr. Ashlie iHlls SARS-CoV-2 (COVID-19) RNA MADDY+probe Ql (Unsp spec) Not detected Normal NOT DETECTED The [facility] Comment on above: Performed By: #### C VDAGS #### [facility] [address] [place] [address] Dr. Ashlie Hills XR CHEST 1 Von [...] MARYANNE POWER Date: 2022-12-04 22:23 Normal [facility] BLOOD GASES BTYon 12-04-2022 02 MODE ROOM AIR Normal [facility] Comment on above: Performed By: #### C BC #### [facility] [address] [place] [address] Dr. Ashlie Hills ALLENS TEST Positive Normal [facility] Comment on above: Performed By: #### C BC #### [facility] [address] [place] [address] Dr. Ashlie Hills Base excess Calc (Bld) [Moles/Vol] 5.4 mmol/L Critically high -2.0-2.0 [facility] Comment on above: Performed By: #### C BC #### [facility] [address] [place] [address] Dr. Ashlie Hills BIPAP PRESSURE Normal [facility] Comment on above: Performed By: #### C BC #### [facility] [address] [address] [address] Ashlie Hills CPAP Normal [facility] Comment on above: Performed By: #### C BC #### [facility] [address] [place] [address] Dr. Ashlie Hills FIO2 Normal [facility] Comment on above: Performed By: #### C BC #### [facility] [address] [address] [address] Ashlie Hills HCO3 (Bld) [Moles/Vol] 30.8 mmol/L Critically high 22.0-26 .0 [facility] Comment on above: Performed By: #### C BC #### [facility] [address] [place] [address] Dr. Ashlie Hills LPM Normal [facility] Comment on above: Performed By: #### C BC #### [facility] [address] [place] [address] Dr. Ashlie Hills MINUTE VOLUME Normal [facility] Comment on above: Performed By: #### C BC #### [facility] [address] [place] [address] Dr. Ashlie Hills Oxygen (Bld) [Partial pressure] 46.3 mm[Hg] Critically low 80.0-100.0 [facility] Comment on above: Performed By: #### C BC #### [facility] [address] [place] [address] Dr. Ashlie Hills Oxygen saturation in Blood 83.9 % Critically low 95.0- 100.0 [facility] Comment on above: Performed By: #### C BC #### [facility] [address] [place] [address] Dr. Ashlie Hills PCO2 54.2 mmHg Critically high 35.0-45.0 [facility] Comment on above: Performed By: #### C BC #### [facility] [address] [place] [address] Dr. Ashlie Hills PEEP Normal [facility] Comment on above: Performed By: #### C BC #### [facility] [address] [place] [address] Dr. Ashlie Hills pH (Bld) 7.363 [pH] Normal 7.350-7.450 [facility] Comment on above: Performed By: #### C BC #### [facility] [address] [place] [address] Dr. Ashlie Hills PIP Normal [facility] Comment on above: Performed By: #### C BC #### [facility] [address] [place] [address] Dr. Ashlie Hills PS Normal [facility] Comment on above: Performed By: #### C BC #### [facility] [address] [place] [address] Dr. Ashlie Hills PUNCTURE SITE LR Normal [facility] Comment on above: Performed By: #### C BC #### [facility] [address] [place] [address] Dr. Ashlie Hills RATE Normal [facility] Comment on above: Performed By: #### C BC #### [facility] [address] [place] [address] Dr. Ashlie Hills VENT MODE Normal [facility] Comment on above: Performed By: #### C BC #### [facility] [address] [place] [address] Dr. Ashlie Hills [place] Normal [facility] Comment on above: Performed By: #### C BC #### [facility] [address] [place] [address] Dr. Ashlie Hills BNPon 12-04-2022 Natriuretic peptide B (Bld) [Mass/Vol] 76.0 pg/mL Normal <=900.0 [facility] Comment on above: Performed By: #### P OCGLUC #### [facility] [address] [place] [address] Dr. Ashlie Hills CBC AUTO DIFFon 12-04-2022 BASO # 0.1 103/ul Normal 0.0-0.1 [facility] Comment on above: Performed By: #### C BC #### [facility] [address] [place] [address] Dr. Ashlie Hills Basophils/100 WBC (Bld) 0.6 % Normal 0.2-2.0 [facility] Comment on above: Performed By: #### C BC #### [facility] [address] [place] [address] Dr. Ashlie Hills EO # 0.2 103/ul Normal 0.0-0.7 [facility] Comment on above: Performed By: #### C BC #### [facility] [address] [place] [address] Dr. Ashlie Hills Eosinophils/100 WBC (Bld) 1.9 % Normal 0.9-7.0 [facility] Comment on above: Performed By: #### C BC #### [facility] [address] [place] [address] Dr. Ashlie Hills Erythrocyte distribution wid th (RBC) [Ratio] 15.0 % Normal 11.0-15.0 [facility] Comment on above: Performed By: #### C BC #### [facility] [address] [place] [address] Dr. Ashlie Hills Hematocrit (Bld) [Volume fraction] 49.1 % Critically high 36.0-48.0 [facility] Comment on above: Performed By: #### C BC #### [facility] [address] [place] [address] Dr. Ashlie Hills Hemoglobin (Bld) [Mass/Vol] 15.6 g/dL Normal 12.0-16. 0 [facility] Comment on above: Performed By: #### C BC #### [facility] [address] [place] [address] Dr. Ashlie Hills IG # 0.02 10e3/ul Normal 0.00-0.03 [facility] Comment on above: Performed By: #### C BC #### [facility] [address] [place] [address] Dr. Ashlie Hills IG % 0.2 % Normal 0.0-0.5 [facility] Comment on above: Performed By: #### C BC #### [facility] [address] [address] [address] Ashlie Hills LYMPH # 2.8 103/ul Normal 1.2-3.8 [facility] Comment on above: Performed By: #### C BC #### [facility] [address] [place] [address] Dr. Ashlie Hills Lymphocytes/100 WBC (Bld) 29.9 % Normal 20.5-60.0 [facility] Comment on above: Performed By: #### C BC #### [facility] [address] [place] [address] Dr. Ashlie Hills MANUAL DIFF REQ NO Normal [facility] Comment on above: Performed By: #### C BC #### [facility] [address] [place] [address] Dr. Ashlie Hills MCH (RBC) [Entitic mass] 28.5 pg Normal 26.7-34.0 [facility] Comment on above: Performed By: #### C BC #### [facility] [address] [place] [address] Dr. Ashlie Hills MCHC (RBC) [Mass/Vol] 31.8 g/dL Normal 29.9-35.2 [facility] Comment on above: Performed By: #### C BC #### [facility] [address] [place] [address] Dr. Ashlie Hills MCV (RBC) [Entitic vol] 89.8 fL Normal 81.0-99.0 [facility] Comment on above: Performed By: #### C BC #### [facility] [address] [place] [address] Dr. Ashlie Hills MONO # 1.0 103/ul Critically high 0.3-0.8 [facility] Comment on above: Performed By: #### C BC #### [facility] [address] [place] [address] Dr. Ashlie Hills Monocytes/100 WBC (Bld) 10.6 % Normal 1.7-12.0 [facility] Comment on above: Performed By: #### C BC #### [facility] [address] [place] [address] Dr. Ashlie Hills NEUT # 5.3 103/ul Normal 1.4-6.5 [facility] Comment on above: Performed By: #### C BC #### [facility] [address] [place] [address] Dr. Ashlie Hills Neutrophils/100 WBC (Bld) 56.8 % Normal 43.0-75.0 [facility] Comment on above: Performed By: #### C BC #### [facility] [address] [place] [address] Dr. Ashlie Hills Platelet mean volume (Bld) [ Entitic vol] 12.5 fL Normal 9.5-13.5 [facility] Comment on above: Performed By: #### C BC #### [facility] [address] [place] [address] Dr. Ashlie Hills PLT 109 103/ul Critically low 150-450 [facility] Comment on above: Performed By: #### C BC #### [facility] [address] [place] [address] Dr. Ashlie Hills RBC 5.47 106/ul Critically high 4.20-5.40 [facility] Comment on above: Performed By: #### C BC #### [facility] [address] [place] [address] Dr. Ashlie Hills WBC 9.4 103/ul Normal 4.0-11.0 [facility] Comment on above: Performed By: #### C BC #### [facility] [address] [place] [address] Dr. Ashlie Hills PROF 14(COMP METB)on 023 Albumin [Mass/Vol] 2.9 g/dL Critically low 3.4-5.0 [facility] Comment on above: Performed By: #### C BC #### [facility] [address] [place] [address] Dr. Ashlie Hills Albumin/Globulin [Mass ratio] 0.6 {ratio} Normal [facility] Comment on above: Performed By: #### C BC #### [facility] [address] [address] [address] Ashlie Hills ALP [Catalytic activity/Vol] 64 U/L Normal 46-116 [facility] Comment on above: Performed By: #### C BC #### [facility] [address] [address] [address] Ashlie Hills ALT [Catalytic activity/Vol] 16 U/L Normal 14-59 [facility] Comment on above: Performed By: #### C BC #### [facility] [address] [place] [address] Dr. Ashlie Hills Anion gap [Moles/Vol] 9.6 mmol/L Normal [facility] Comment on above: Performed By: #### C BC #### [facility] [address] [place] [address] Dr. Ashlie Hills AST [Catalytic activity/Vol] 16 U/L Normal 15-37 [facility] Comment on above: Performed By: #### C BC #### [facility] [address] [place] [address] Dr. Ashlie Hills Bilirubin [Mass/Vol] 0.5 mg/dL Normal 0.2-1.0 [facility] Comment on above: Performed By: #### C BC #### [facility] [address] [place] [address] Dr. Ashlie Hills Calcium [Mass/Vol] 8.7 mg/dL Normal 8.5-10.1 [facility] Comment on above: Performed By: #### C BC #### [facility] [address] [place] [address] Dr. Ashlie Hills Chloride [Moles/Vol] 103 mmol/L Normal 98-107 [facility] Comment on above: Performed By: #### C BC #### [facility] [address] [place] [address] Dr. Ashlie Hills CO2 [Moles/Vol] 30.7 mmol/L Normal 21.0-32.0 [facility] Comment on above: Performed By: #### C BC #### [facility] [address] [place] [address] Dr. Ashlie Hills Creatinine [Mass/Vol] 0.96 mg/dL Normal 0.55-1.02 [facility] Comment on above: Performed By: #### C BC #### [facility] [address] [place] [address] Dr. Ashlie Hills EGFR-AF PERUVIAN >60 Normal >=60 [facility] Comment on above: Performed By: #### C BC #### [facility] [address] [address] [address] Ashlie Hills EGFR-NON AF PERUVIAN >60 Normal >=60 [facility] Comment on above: Performed By: #### C BC #### [facility] [address] [place] [address] Dr. Ashlie Hills Globulin (S) [Mass/Vol] 4.7 g/dL Normal [facility] Comment on above: Performed By: #### C BC #### [facility] [address] [place] [address] Dr. Ashlie Hills Glucose [Mass/Vol] 170 mg/dL Critically high 74-106 [facility] Comment on above: Performed By: #### C BC #### [facility] [address] [place] [address] Dr. Ashlie Hills Potassium [Moles/Vol] 4.3 mmol/L Normal 3.5-5.1 [facility] Comment on above: Performed By: #### C BC #### [facility] [address] [place] [address] Dr. Ashlie Hills Protein [Mass/Vol] 7.6 g/dL Normal 6.4-8.2 [facility] Comment on above: Performed By: #### C BC #### [facility] [address] [place] [address] Dr. Ashlie Hills Sodium [Moles/Vol] 139 mmol/L Normal 136-145 [facility] Comment on above: Performed By: #### C BC #### [facility] [address] [place] [address] Dr. Ashlie Hills Urea nitrogen [Mass/Vol] 16.0 mg/dL Normal 7.0-18.0 [facility] Comment on above: Performed By: #### C BC #### [facility] [address] [place] [address] Dr. Ashlie Hills Urea nitrogen/Creatinine [Mass ratio] 16.7 mg/mg Normal [facility] Comment on above: Performed By: #### C BC #### [facility] [address] [place] [address] Dr. Ashlie Hills SYMPTOMATIC COVID-19 ANTIGEN on 12-04-2022 EUA Statement SEE BELOW Normal [facility] Comment on above: Result Comment: This [...] sooner. Performed By: #### C VDAGS #### [facility] [address] [place] [address] Dr. Ashlie Hills SARS-CoV-2 (COVID-19) RNA NA A+probe Ql (Unsp spec) Negative Normal NEGATIVE [facility] Comment on above: Performed By: #### C VDAGS #### [facility] [address] [place] [address] Dr. Ashlie Hills TROPONIN, HIGH SENSITIVITYon 12-04-2022 HSTROP 8.9 pg/mL Normal 4.0-51.3 [facility] Comment on above: Result Comment: CUT- OFF POINTS HAVE BEEN ESTABLISHED BASED ON THE FOURTH UNIVERSAL DEFINITIONS OF MYOCARDIAL INFARCTION. THE UPPER REFERENCE LIMIT (URL) OF TROPONIN, DEFINED THE 99TH PERCENTILE OF cTnI DISTRIBUTION IN A REFERENCE POPULATION, HAS BEEN CONFIRMED THE DECISION THRESHOLD FOR ID DIAGNOSIS. Performed By: #### P OCGLUC #### [facility] [address] [place] [address] Dr. Ashlie Hills MICROALBUMIN, RAND URon 11-06 mALB 35.8 mg/dL Critically high <=30.0 [facility] Comment on above: Performed By: #### C VDAGS #### [facility] [address] [place] [address] Dr. Ashlie Hills UA RANDOM W/MICROSCOPICon BACTERIA NONE SEEN Normal NONE SEEN [facility] Comment on above: Performed By: #### C VDAGS #### [facility] [address] [place] [address] Dr. Ashlie Hills Bilirubin Ql (U) Negative Normal NEGATIVE [facility] Comment on above: Performed By: #### C VDAGS #### [facility] [address] [place] [address] Dr. Ashlie Hills CAST SEEN Abnormal NONE SEEN [facility] Comment on above: Performed By: #### C VDAGS #### [facility] [address] [place] [address] Dr. Ashlie Hills Clarity (U) CLEAR Normal CLEAR [facility] Comment on above: Performed By: #### C VDAGS #### [facility] [address] [place] [address] Dr. Ashlie Hills Color (U) YELLOW Normal YELLOW [facility] Comment on above: Performed By: #### C VDAGS #### [facility] [address] [place] [address] Dr. Ashlie Hills Crystals LM Nom (Urine sed) NONE SEEN Normal NONE SEE N [facility] Comment on above: Performed By: #### C VDAGS #### [facility] [address] [place] [address] Dr. Ashlie Hills Epithelial cells LM Ql (Urin e sed) MODERATE Abnormal NONE SEEN /RARE [facility] Comment on above: Performed By: #### C VDAGS #### [facility] [address] [place] [address] Dr. Ashlie Hills Glucose Ql (U) Negative Normal NEGATIVE [facility] Comment on above: Performed By: #### C VDAGS #### [facility] [address] [place] [address] Dr. Ashlie Hills Hemoglobin Ql (U) TRACE-INTACT Abnormal NEGATIVE [facility] Comment on above: Performed By: #### C VDAGS #### [facility] [address] [place] [address] Dr. Ashlie Hills Ketones Ql (U) Negative Normal NEGATIVE [facility] Comment on above: Performed By: #### C VDAGS #### [facility] [address] [place] [address] Dr. Ashlie Hills LEUKOCYTES Negative Normal NEGATIVE [facility] Comment on above: Performed By: #### C VDAGS #### [facility] [address] [place] [address] Dr. Ashlie Hills MUCOUS NONE SEEN Normal NONE SEEN [facility] Comment on above: Performed By: #### C VDAGS #### [facility] [address] [place] [address] Dr. Ashlie Hills Nitrite Ql (U) Negative Normal NEGATIVE [facility] Comment on above: Performed By: #### C VDAGS #### [facility] [address] [place] [address] Dr. Ashlie Hills pH (U) 5.0 [pH] Normal 5-9 [facility] Comment on above: Performed By: #### C VDAGS #### [facility] [address] [place] [address] Dr. Ashlie Hills RBC 0-2 Normal 0-2 [facility] Comment on above: Performed By: #### C VDAGS #### [facility] [address] [place] [address] Dr. Ashlie Hills SPEC GRAVITY 1.030 Abnormal 1.005-<=1.025 [facility] Comment on above: Performed By: #### C VDAGS #### [facility] [address] [place] [address] Dr. Ashlie Hills UA PROTEIN 100 mg/dl Abnormal NEGATIVE/ TRACE [facility] Comment on above: Performed By: #### C VDAGS #### [facility] [address] [place] [address] Dr. Ashlie Hills Urobilinogen Qn (U) 0.2 {Little'U}/dL Normal 0.2 - 1. 0 [facility] Comment on above: Performed By: #### C VDAGS #### [facility] [address] [place] [address] Dr. Ashlie Hills WBC NONE SEEN Normal NONE SEEN [facility] Comment on above: Performed By: #### C VDAGS #### [facility] [address] [place] [address] Dr. Ashlie Hills CBC AUTO DIFFon 11-22-2022 BASO # 0.0 103/ul Normal 0.0-0.1 [facility] Comment on above: Performed By: #### C BC #### [facility] [address] [place] [address] Dr. Ashlie Hills Basophils/100 WBC (Bld) 0.3 % Normal 0.2-2.0 [facility] Comment on above: Performed By: #### C BC #### [facility] [address] [place] [address] Dr. Ashlie Hills EO # 0.4 103/ul Normal 0.0-0.7 [facility] Comment on above: Performed By: #### C BC #### [facility] [address] [place] [address] Dr. Ashlie Hills Eosinophils/100 WBC (Bld) 3.0 % Normal 0.9-7.0 [facility] Comment on above: Performed By: #### C BC #### [facility] [address] [place] [address] Dr. Ashlie Hills Erythrocyte distribution wid th (RBC) [Ratio] 15.3 % Critically high 11.0-15.0 [facility] Comment on above: Performed By: #### C BC #### [facility] [address] [address] Dr. Ashlie Hills Hematocrit (Bld) [Volume fraction] 52.4 % Critically high 36.0-48.0 [facility] Comment on above: Performed By: #### C BC #### [facility] [address] [place] [address] Dr. Ashlie Hills Hemoglobin (Bld) [Mass/Vol] 16.8 g/dL Critically high 12. 0-16.0 [facility] Comment on above: Performed By: #### C BC #### [facility] [address] [place] [address] Dr. Ashlie Hills IG # 0.04 10e3/ul Critically high 0.00-0.03 [facility] Comment on above: Performed By: #### C BC #### [facility] [address] [place] [address] Dr. Ashlie Hills IG % 0.3 % Normal 0.0-0.5 [facility] Comment on above: Performed By: #### C BC #### [facility] [address] [place] [address] Dr. Ashlie Hills LYMPH # 4.5 103/ul Critically high 1.2-3.8 [facility] Comment on above: Performed By: #### C BC #### [facility] [address] [place] [address] Dr. Ashlie Hills Lymphocytes/100 WBC (Bld) 33.2 % Normal 20.5-60.0 [facility] Comment on above: Performed By: #### C BC #### [facility] [address] [place] [address] Dr. Ashlie Hills MANUAL DIFF REQ NO Normal [facility] Comment on above: Performed By: #### C BC #### [facility] [address] [place] [address] Dr. Ashlie Hills MCH (RBC) [Entitic mass] 28.0 pg Normal 26.7-34.0 [facility] Comment on above: Performed By: #### C BC #### [facility] [address] [address] [address] Ashlie Hills MCHC (RBC) [Mass/Vol] 32.1 g/dL Normal 29.9-35.2 [facility] Comment on above: Performed By: #### C BC #### [facility] [address] [place] [address] Dr. Ashlie Hills MCV (RBC) [Entitic vol] 87.3 fL Normal 81.0-99.0 [facility] Comment on above: Performed By: #### C BC #### [facility] [address] [place] [address] Dr. Ashlie Hills MONO # 0.8 103/ul Normal 0.3-0.8 [facility] Comment on above: Performed By: #### C BC #### [facility] [address] [place] [address] Dr. Ashlie Hills Monocytes/100 WBC (Bld) 5.7 % Normal 1.7-12.0 [facility] Comment on above: Performed By: #### C BC #### [facility] [address] [place] [address] Dr. Ashlie Hills NEUT # 7.8 103/ul Critically high 1.4-6.5 [facility] Comment on above: Performed By: #### C BC #### [facility] [address] [place] [address] Dr. Ashlie Hills Neutrophils/100 WBC (Bld) 57.5 % Normal 43.0-75.0 [facility] Comment on above: Performed By: #### C BC #### [facility] [address] [place] [address] Dr. Ashlie Hills Platelet mean volume (Bld) [ Entitic vol] 12.0 fL Normal 9.5-13.5 [facility] Comment on above: Performed By: #### C BC #### [facility] [address] [place] [address] Dr. Ashlie Hills PLT 152 103/ul Normal 150-450 [facility] Comment on above: Performed By: #### C BC #### [facility] [address] [address] [address] Ashlie Hills RBC 6.00 106/ul Critically high 4.20-5.40 [facility] Comment on above: Performed By: #### C BC #### [facility] [address] [address] [address] Ashlie Hills WBC 13.6 103/ul Critically high 4.0-11.0 [facility] Comment on above: Performed By: #### C BC #### [facility] [address] [place] [address] Dr. Ashlie Hills LIPID PROFILEon 11-22-2022 CHOL-HDL RATIO NORM SEE BELOW Normal [facility] Comment on above: Result Comment: 3.3 - 4.4 LOW RISK 4.4 - 7.1 AVERAGE RISK 7.1 - 11.0 MODERATE RISK >11.0 HIGH RISK Performed By: #### C BC #### [facility] [address] [place] [address] Dr. Ashlie Hills Cholesterol [Mass/Vol] 139 mg/dL Normal <=200 [facility] Comment on above: Performed By: #### C BC #### [facility] [address] [place] [address] Dr. Ashlie Hills Cholesterol in HDL [Mass/Vol] 35 mg/dL Critically low 40 -60 [facility] Comment on above: Performed By: #### C BC #### [facility] [address] [address] [address] Ashlie Hills Cholesterol in LDL [Mass/Vol] 67.4 mg/dL Normal [facility] Comment on above: Performed By: #### C BC #### [facility] [address] [place] [address] Dr. Ashlie Hills Cholesterol.total/Cholestero l in HDL [Mass ratio] 4.0 {ratio} Normal [facility] Comment on above: Performed By: #### C BC #### [facility] [address] [place] [address] Dr. Ashlie Hills HDL NORMAL > or = 60 mg/dl - LO W CARDIOVASCULAR RISK <40 mg/dl - HIGH CARDIOVASCULAR RISK Normal [facility] Comment on above: Performed By: #### C BC #### [facility] [address] [address] [address] Ashlie Hills LDL CALC NORMAL SEE BELOW Normal [facility] Comment on above: Result Comment: <100 mg/dl OPTIMAL 100 - 129 mg/dl NEAR OR ABOVE OPTIMAL 130 - 159 mg/dl BORDERLINE HIGH 160 - 189 mg/dl HIGH >190 mg/dl VERY HIGH Performed By: #### C BC #### [facility] [address] [address] [address] Ashlie Hills Triglyceride [Mass/Vol] 183 mg/dL Critically high <=150 [facility] Comment on above: Performed By: #### C BC #### [facility] [address] [address] [address] Ashlie Hills VLDL CALC 36.6 mg/dL Normal [facility] Comment on above: Performed By: #### C BC #### [facility] [address] [address] [address] Ashlie Hills MG MAMM SCREEN 3D ALEX CADon 11-22-2022 MG MAMM SCREEN 3D ALEX CAD Patient: MITZI MACIAS Exam Date: 11/22/2022 : 1970 Gender:F Ordering : [facility] Admission #: [id number] Family : Order #: [id number] CLICK HERE TO VIEW EXAM RADIOLOGY REPORT [...] unknown cancer at age 75. LOCATION: [facility] BREAST COMPOSITION: Almost entirely fatty. FINDINGS: [...] M.D. on 11/22/2022 at 12:09 Normal [facility] l PROF 14(COMP METB)on 023 Albumin [Mass/Vol] 3.0 g/dL Critically low 3.4-5.0 [facility] Comment on above: Performed By: #### C BC #### [facility] [address] [place] [address] Dr. Ashlie Hills Albumin/Globulin [Mass ratio] 0.6 {ratio} Normal [facility] Comment on above: Performed By: #### C BC #### [facility] [address] [place] [address] Dr. Ashlie Hills ALP [Catalytic activity/Vol] 68 U/L Normal 46-116 [facility] Comment on above: Performed By: #### C BC #### [facility] [address] [place] [address] Dr. Ashlie Hills ALT [Catalytic activity/Vol] 14 U/L Normal 14-59 [facility] Comment on above: Performed By: #### C BC #### [facility] [address] [place] [address] Dr. Ashlie Hills Anion gap [Moles/Vol] 12.1 mmol/L Normal [facility] Comment on above: Performed By: #### C BC #### [facility] [address] [place] [address] Dr. Ashlie Hills AST [Catalytic activity/Vol] 9 U/L Critically low 15- 37 [facility] Comment on above: Performed By: #### C BC #### [facility] [address] [address] [address] Ashlie Hills Bilirubin [Mass/Vol] 0.4 mg/dL Normal 0.2-1.0 [facility] Comment on above: Performed By: #### C BC #### [facility] [address] [place] [address] Dr. Ashlie Hills Calcium [Mass/Vol] 9.0 mg/dL Normal 8.5-10.1 [facility] Comment on above: Performed By: #### C BC #### [facility] [address] [place] [address] Dr. Ashlie Hills Chloride [Moles/Vol] 105 mmol/L Normal 98-107 [facility] Comment on above: Performed By: #### C BC #### [facility] [address] [place] [address] Dr. Ashlie Hills CO2 [Moles/Vol] 30.7 mmol/L Normal 21.0-32.0 [facility] Comment on above: Performed By: #### C BC #### [facility] [address] [place] [address] Dr. Ashlie Hills Creatinine [Mass/Vol] 0.77 mg/dL Normal 0.55-1.02 [facility] Comment on above: Performed By: #### C BC #### [facility] [address] [place] [address] Dr. Ashlie Hills EGFR-AF PERUVIAN >60 Normal >=60 [facility] Comment on above: Performed By: #### C BC #### [facility] [address] [place] [address] Dr. Ashlie Hills EGFR-NON AF PERUVIAN >60 Normal >=60 [facility] Comment on above: Performed By: #### C BC #### [facility] [address] [place] [address] Dr. Ashlie Hills Globulin (S) [Mass/Vol] 4.8 g/dL Normal T [facility] Comment on above: Performed By: #### C BC #### [facility] [address] [place] [address] Dr. Ashlie Hills Glucose [Mass/Vol] 162 mg/dL Critically high 74-106 [facility] Comment on above: Performed By: #### C BC #### [facility] [address] [address] [address] Ashlie Hills Potassium [Moles/Vol] 3.8 mmol/L Normal 3.5-5.1 [facility] Comment on above: Performed By: #### C BC #### [facility] [address] [place] [address] Dr. Ashlie Hills Protein [Mass/Vol] 7.8 g/dL Normal 6.4-8.2 [facility] Comment on above: Performed By: #### C BC #### [facility] [address] [place] [address] Dr. Ashlie Hills Sodium [Moles/Vol] 144 mmol/L Normal 136-145 [facility] Comment on above: Performed By: #### C BC #### [facility] [address] [place] [address] Dr. Ashlie Hills Urea nitrogen [Mass/Vol] 24.0 mg/dL Critically high 7.0-18 .0 [facility] Comment on above: Performed By: #### C BC #### [facility] [address] [place] [address] Dr. Ashlie Hills Urea nitrogen/Creatinine [Mass ratio] 31.2 mg/mg Normal [facility] Comment on above: Performed By: #### C BC #### [facility] [address] [place] [address] Dr. Ashlie Hills Patient Educationon 11-16-19 23 [...] ? 8 oz (237 mL) of milk, qoyspfl-dtscstidmwxg-pojda milk, and calcium-fortifiedfruit juice. Calcium-fortified means that [...] Spinach (cooked), rhubarb, beets, sweet potatoes, and Slovak chard. ? Peanuts. ? Potato chips, djiboutian fries, and baked potatoes with skin on. ? Nuts and nut products. ? Chocolate. ? If you regularly take a diuretic medicine, make sure to eat at least 1 or 2 servings of fruits or vegetables that are high in potassium each day. These include: ? Avocado. ? Banana. ? [place], prune, carrot, or tomato juice. ? Baked [...] fish oil, or vitamin B6. ? Take cymc-vnc-mszckds and prescription medicines only as told by your health care provider. These include supplements. What foods should I limit? Limit your in (more content not included)... Normal [facility] Reminderson 11-15-2022 Reminders - From: Maria Elena Negrete To: SHEA - Fariha Vega; Sent: 11/15/2022 14:23:36 EDT Show up: 04/17/2024 14:23:00 EDT Subject: Schedule CT AP w con Due Date/Time: 05/18/2024 13:23:00 EST Please schedule [address] AP w con for adrenal mass. Normal [facility] Urology Office/Clinic Noteon 11-15-2022 Urology Office/Clinic Note [...] Contact Information SILVIA HOWELL, GAVIOTA Webb, URL [address] [place] [address] Additional Instructions: [address] AP w [...] (1/2 pack (more content not included)... Normal [facility] Comment on above: Result Comment: Elec tronically Signed By: GAVIOTA VEGA PA-C\.br\Date and Time Signed: 11/15/22 14:32 EDT\.br\Electronically Co-Signed By: Maria Elena Negrete\.br\Date and Time Co-Signed: 11/15/22 14:22 EDT\.br\Electronically Co-Signed By: Maria Elena Negrete.br\Date and Time Co-Signed: 11/15/22 14:22 EDT CBC AUTO DIFFon 10-05-2022 BASO # 0.1 103/ul Normal 0.0-0.1 [facility] Comment on above: Performed By: #### C BC #### [facility] [address] [address] [address] Ashlie Hills Basophils/100 WBC (Bld) 0.6 % Normal 0.2-2.0 [facility] Comment on above: Performed By: #### C BC #### [facility] [address] [place] [address] Dr. Ashlie Hills EO # 0.3 103/ul Normal 0.0-0.7 [facility] Comment on above: Performed By: #### C BC #### [facility] [address] [place] [address] Dr. Ashlie Hills Eosinophils/100 WBC (Bld) 2.1 % Normal 0.9-7.0 [facility] Comment on above: Performed By: #### C BC #### [facility] [address] [place] [address] Dr. Ashlie Hills Erythrocyte distribution wid th (RBC) [Ratio] 15.9 % Critically high 11.0-15.0 [facility] p[facility] Comment on above: Performed By: #### C BC #### [facility] [address] [place] [address] Dr. Ashlie Hills Hematocrit (Bld) [Volume fraction] 51.8 % Critically high 36.0-48.0 [facility] Comment on above: Performed By: #### C BC #### [facility] [address] [place] [address] Dr. Ashlie Hills Hemoglobin (Bld) [Mass/Vol] 16.6 g/dL Critically high 12. 0-16.0 [facility] Comment on above: Performed By: #### C BC #### [facility] [address] [address] [address] Ashlie Hills IG # 0.03 10e3/ul Normal 0.00-0.03 [facility] Comment on above: Performed By: #### C BC #### [facility] [address] [place] [address] Dr. Ashlie Hills IG % 0.2 % Normal 0.0-0.5 [facility] Comment on above: Performed By: #### C BC #### [facility] [address] [place] [address] Dr. Ashlie Hills LYMPH # 3.9 103/ul Critically high 1.2-3.8 [facility] Comment on above: Performed By: #### C BC #### [facility] [address] [place] [address] Dr. Ashlie Hills Lymphocytes/100 WBC (Bld) 31.7 % Normal 20.5-60.0 [facility] Comment on above: Performed By: #### C BC #### [facility] [address] [place] [address] Dr. Ashlie Hills MANUAL DIFF REQ NO Normal [facility] Comment on above: Performed By: #### C BC #### [facility] [address] [place] [address] Dr. Ashlie Hills MCH (RBC) [Entitic mass] 27.9 pg Normal 26.7-34.0 [facility] Comment on above: Performed By: #### C BC #### [facility] [address] [place] [address] Dr. Ashlie Hills MCHC (RBC) [Mass/Vol] 32.0 g/dL Normal 29.9-35.2 [facility] Comment on above: Performed By: #### C BC #### [facility] [address] [place] [address] Dr. Ashlie Hills MCV (RBC) [Entitic vol] 87.1 fL Normal 81.0-99.0 [facility] Comment on above: Performed By: #### C BC #### [facility] [address] [place] [address] Dr. Ashlie Hills MONO # 0.7 103/ul Normal 0.3-0.8 [facility] Comment on above: Performed By: #### C BC #### [facility] [address] [address] [address] Ashlie Hills Monocytes/100 WBC (Bld) 5.8 % Normal 1.7-12.0 [facility] Comment on above: Performed By: #### C BC #### [facility] [address] [address] [address] Ashlie Hills NEUT # 7.3 103/ul Critically high 1.4-6.5 [facility] Comment on above: Performed By: #### C BC #### [facility] [address] [address] [address] Ashlie Hills Neutrophils/100 WBC (Bld) 59.6 % Normal 43.0-75.0 [facility] Comment on above: Performed By: #### C BC #### [facility] [address] [place] [address] Dr. Ashlie Hills Platelet mean volume (Bld) [ Entitic vol] 11.7 fL Normal 9.5-13.5 [facility] Comment on above: Performed By: #### C BC #### [facility] [address] [place] [address] Dr. Ashlie Hills PLT 117 103/ul Critically low 150-450 [facility] Comment on above: Performed By: #### C BC #### [facility] [address] [address] [address] Ashlie Hills RBC 5.95 106/ul Critically high 4.20-5.40 [facility] Comment on above: Performed By: #### C BC #### [facility] [address] [place] [address] Dr. Ashlie Hills WBC 12.3 103/ul Critically high 4.0-11.0 [facility] Comment on above: Performed By: #### C BC #### [facility] [address] [place] [address] ABD/PELV W CONon [...] RICCO PICKARD Date: 2022-10-05 13:13 Normal [facility] URINE PROFILEon 3 Bilirubin Ql (U) Negative Normal NEGATIVE [facility] Comment on above: Performed By: #### P OCGLUC #### [facility] [address] [place] [address] Dr. Ashlie Hills Clarity (U) CLEAR Normal CLEAR [facility] Comment on above: Performed By: #### P OCGLUC #### [facility] [address] [address] [address] Ashlie Hills Color (U) YELLOW Normal YELLOW [facility] Comment on above: Performed By: #### P OCGLUC #### [facility] [address] [place] [address] Dr. Ashlie Hills ERUAHD A micrscopic examina tion will be performed if indicated. Normal [facility] Comment on above: Performed By: #### P OCGLUC #### [facility] [address] [address] [address] Ashlie Hills Glucose Ql (U) Negative Normal NEGATIVE [facility] Comment on above: Performed By: #### P OCGLUC #### [facility] [address] [address] [address] Ashlie Hills Hemoglobin Ql (U) Negative Normal NEGATIVE [facility] Comment on above: Performed By: #### P OCGLUC #### [facility] [address] [address] [address] Ashlie Hills Ketones Ql (U) Negative Normal NEGATIVE [facility] Comment on above: Performed By: #### P OCGLUC #### [facility] [address] [address] [address] Ashlie Hills LEUKOCYTES Negative Normal NEGATIVE [facility] Comment on above: Performed By: #### P OCGLUC #### [facility] [address] [place] [address] Dr. Ashlie Hills Nitrite Ql (U) Negative Normal NEGATIVE [facility] Comment on above: Performed By: #### P OCGLUC #### [facility] [address] [place] [address] Dr. Ashlie Hills pH (U) 6.0 [pH] Normal 5-9 [facility] Comment on above: Performed By: #### P OCGLUC #### [facility] [address] [place] [address] Dr. Ashlie Hills Protein (U) [Mass/Vol] 100 mg/dL Abnormal NEGATIVE/ TRA CE [facility] Comment on above: Performed By: #### P OCGLUC #### [facility] [address] [address] [address] Ashlie Hills SPEC GRAVITY 1.010 Normal 1.005-<=1.025 [facility] Comment on above: Performed By: #### P OCGLUC #### [facility] [address] [place] [address] Dr. Ashlie Hills UR MICRO IND INDICATED Normal [facility] Comment on above: Performed By: #### P OCGLUC #### [facility] [address] [place] [address] Dr. Ashlie Hills Urobilinogen Qn (U) 1.0 {Little'U}/dL Normal 0.2 - 1. 0 [facility] Comment on above: Performed By: #### P OCGLUC #### [facility] [address] [place] [address] Dr. Ashlie Hills LIPASEon 10-05-2022 Lipase [Catalytic activity/Vol] 1771.0 U/L Critically high 73.0-393.0 [facility] Comment on above: Performed By: #### C BC #### [facility] [address] [place] [address] Dr. Ashlie Hills PREG HCG QUALon 10-05-2022 , QUAL Negative Normal NEGATIVE [facility] Comment on above: Performed By: #### P OCGLUC #### [facility] [address] [place] [address] Dr. Ashlie Hills PROF 14(COMP METB)on 023 Albumin [Mass/Vol] 3.2 g/dL Critically low 3.4-5.0 [facility] Comment on above: Performed By: #### C BC #### [facility] [address] [place] [address] Dr. Ashlie Hills Albumin/Globulin [Mass ratio] 0.7 {ratio} Normal [facility] Comment on above: Performed By: #### C BC #### [facility] [address] [place] [address] Dr. Ashlie Hills ALP [Catalytic activity/Vol] 70 U/L Normal 46-116 [facility] Comment on above: Performed By: #### C BC #### [facility] [address] [place] [address] Dr. Ashlie Hills ALT [Catalytic activity/Vol] 11 U/L Critically low 14- 59 [facility] Comment on above: Performed By: #### C BC #### [facility] [address] [place] [address] Dr. Ashlie Hills Anion gap [Moles/Vol] 10.3 mmol/L Normal [facility] Comment on above: Performed By: #### C BC #### [facility] [address] [place], [place] [id number] Dr. Ashlie Hills AST [Catalytic activity/Vol] 11 U/L Critically low 15- 37 [facility] Comment on above: Performed By: #### C BC #### [facility] [address] [address] [address] Ashlie Hills Bilirubin [Mass/Vol] 0.9 mg/dL Normal 0.2-1.0 [facility] Comment on above: Performed By: #### C BC #### [facility] [address] [address] [address] Ashlie Hills Calcium [Mass/Vol] 9.3 mg/dL Normal 8.5-10.1 [facility] Comment on above: Performed By: #### C BC #### [facility] [address] [place] [address] Dr. Ashlie Hills Chloride [Moles/Vol] 105 mmol/L Normal 98-107 [facility] Comment on above: Performed By: #### C BC #### [facility] [address] [place] [address] Dr. Ashlie Hills CO2 [Moles/Vol] 30.6 mmol/L Normal 21.0-32.0 [facility] Comment on above: Performed By: #### C BC #### [facility] [address] [place] [address] Dr. Ashlie Hills Creatinine [Mass/Vol] 0.62 mg/dL Normal 0.55-1.02 [facility] Comment on above: Performed By: #### C BC #### [facility] [address] [place] [address] Dr. Ashlie Hills EGFR-AF PERUVIAN >60 Normal >=60 [facility] Comment on above: Performed By: #### C BC #### [facility] [address] [place] [address] Dr. Ashlie Hills EGFR-NON AF PERUVIAN >60 Normal >=60 [facility] Comment on above: Performed By: #### C BC #### [facility] [address] [place] [address] Dr. Ashlie Hills Globulin (S) [Mass/Vol] 4.6 g/dL Normal T [facility] Comment on above: Performed By: #### C BC #### [facility] [address] [address] [address] Ashlie Hills Glucose [Mass/Vol] 85 mg/dL Normal 74-106 [facility] Comment on above: Performed By: #### C BC #### [facility] [address] [address] [address] Ashlie Hills Potassium [Moles/Vol] 3.9 mmol/L Normal 3.5-5.1 [facility] Comment on above: Performed By: #### C BC #### [facility] [address] [address] [address] Ashlie Hills Protein [Mass/Vol] 7.8 g/dL Normal 6.4-8.2 [facility] Comment on above: Performed By: #### C BC #### [facility] [address] [place] [address] Dr. Ashlie Hills Sodium [Moles/Vol] 142 mmol/L Normal 136-145 [facility] Comment on above: Performed By: #### C BC #### [facility] [address] [address] [address] Ashlie Hills Urea nitrogen [Mass/Vol] 12.0 mg/dL Normal 7.0-18.0 [facility] Comment on above: Performed By: #### C BC #### [facility] [address] [address] [address] Ashlie Hills Urea nitrogen/Creatinine [Mass ratio] 19.4 mg/mg Normal [facility] Comment on above: Performed By: #### C BC #### [facility] [address] [address] [address] Ashlie Hills URINE MICROSCOPIC ONLYon BACTERIA TRACE Abnormal NONE SEEN [facility] Comment on above: Performed By: #### P OCGLUC #### [facility] [address] [place] [address] Dr. Ashlie Hills Bacteria identified Cx Nom (U) NOT INDICATED Normal [facility] Comment on above: Performed By: #### P OCGLUC #### [facility] [address] [place] [address] Dr. Ashlie Hills CAST NONE SEEN Normal NONE SEEN [facility] Comment on above: Performed By: #### P OCGLUC #### [facility] [address] [place] [address] Dr. Ashlie Hills Crystals LM Nom (Urine sed) NONE SEEN Normal NONE SEE N [facility] Comment on above: Performed By: #### P OCGLUC #### [facility] [address] [place] [address] Dr. Ashlie Hills Epithelial cells LM Ql (Urin e sed) MODERATE Abnormal NONE SEEN /RARE [facility] Comment on above: Performed By: #### P OCGLUC #### [facility] [address] [place] [address] Dr. Ashlie Hills MUCOUS NONE SEEN Normal NONE SEEN [facility] Comment on above: Performed By: #### P OCGLUC #### [facility] [address] [place] [address] Dr. Ashlie Hills RBC 0-2 Normal 0-2 [facility] Comment on above: Performed By: #### P OCGLUC #### [facility] [address] [place] [address] Dr. Ashlie Hills WBC 0-2 Abnormal NONE SEEN [facility] Comment on above: Performed By: #### P OCGLUC #### [facility] [address] [place] [address] Dr. Ashlie Hills [facility] SARS-CoV-2 (COVID-19) RNA MADDY+probe Ql (Unsp spec) Detected Abnormal NOT DETECTED The [facility] Comment on above: Result Comment: This test is not yet approved or cleared by the [place] FDA. When there are no FDA-approved or cleared tests available, and other criteria are met, FDA can make tests available under an emergency access mechanism called an Emergency Use Authorization (EUA). The EUA for this test is supported by the Desk Director of Health and Human Service's declaration that [...] used). Performed By: #### C VDAGS #### [facility] [address] [place] [address] Dr. Ashlie Hills INFLUENZA A AND B [facility] 09-21 [facility] SEE BELOW Normal [facility] Comment on above: Result Comment: Nega tive for Flu A protein angiten. Infection due to Flu A cannot be ruled out. Flu A angiten in the sample may be below the detection limit of the test. Performed By: #### I NFLUAB #### [facility] [address] [place] [address] Dr. Ashlie [facility] Normal [facility] Comment on above: Result Comment: Nega tive for Flu B protein antigen. Infection due to Flu B cannot be ruled out. Flu B antigen in the sample may be below the detection limit of the test. Performed By: #### I NFLUAB #### [facility] [address] [place] [address] Dr. Ashlie Hills INFLUENZA A AG Negative Normal NEGATIVE SEE COMMENT [facility] Comment on above: Performed By: #### I NFLUAB #### [facility] [address] [place] [address] Dr. Ashlie Hills INFLUENZA B AG Negative Normal NEGATIVE SEE COMMENT [facility] Comment on above: Performed By: #### I NFLUAB #### [facility] [address] [place] [address] Dr. Ashlie Hills RAD - CT Reporton 07-31-2022 RAD - CT Report [id number]:127 [address] [facility] CT ABD/PELV W CONon 07-27-19 CT ABD/PELV [...] dating back to at least 10/21/2018, unchanged. https://www.ncbi.nlm.nih.gov/pmc/articles/GCL8246109/ Electronically authenticated by: COLLIN HUERTAS Date: 2022-07-27 14:56 Normal [facility] Reminderson 07-27-2022 Reminders - From: Raquel Tidwell To: EU - Recalls Vargas; Sent: 02/06/2022 11:45:57 EDT Show up: 07/09/2022 11:45:00 EST Subject: Ct scan Due Date/Time: 07/31/2022 11:45:00 EST Reminder/Recall Pt needs Ct scan abd/pelvis w contrast ATTN Adrenals scheduled prior to Aug 2022 appt. She wants [facility] Pt scheduled for 07/27/2022 will monitor [facility] for results over the next few days Normal F [facility] Physician Orderon 07-19-2022 Physician Order [id number]:127 Normal [facility] CREATININEon 07-18-2022 Creatinine [Mass/Vol] 0.81 mg/dL Normal 0.55-1.02 [facility] Comment on above: Performed By: #### C BC #### [facility] [address] [address] [address] Ashlie Hills EGFR-AF PERUVIAN >60 Normal >=60 [facility] Comment on above: Performed By: #### C BC #### [facility] [address] [place], [place] [address] [address]. Ashlie Hills EGFR-NON AF PERUVIAN >60 Normal >=60 [facility] Comment on above: Performed By: #### C BC #### [facility] [address] [place], [place] [address] LOW EXT W [...] PATRICIA IVAN Date: 2022-07-18 14:58 Normal [facility] l XR KNEE LT 1_2 Von [...] HATTIE BAUTISTA Date: 2022-07-18 12:00 Normal The [facility] Covid-19 PCR (CVD[facility])on 06-09 SARS-CoV-2 (COVID-19) RNA MADDY+probe Ql (Unsp spec) Not detected Normal NOT DETECTED The [facility] Comment on above: Result Comment: This test is not yet approved or cleared by the [place] FDA. When there are no FDA-approved or cleared tests available, and other criteria are met, FDA can make tests available under an emergency access mechanism called an Emergency Use Authorization (EUA). The EUA for this test is supported by the Desk Director of Health and Human Service's (HHS's) declaration [...] SARS-CoV-2. Performed By: #### C BC #### [facility] [address] [place] [address] Dr. Ashlie Hills INFLUENZA A AND B AGon 07-06 [facility] SEE BELOW Normal [facility] Comment on above: Result Comment: Nega tive for Flu A protein angiten. Infection due to Flu A cannot be ruled out. Flu A angiten in the sample may be below the detection limit of the test. Performed By: #### C BC #### [facility] [address] [place] [address] Dr. Ashlie Hills [facility] BEL[facility] Normal [facility] Comment on above: Result Comment: Nega tive for Flu B protein antigen. Infection due to Flu B cannot be ruled out. Flu B antigen in the sample may be below the detection limit of the test. Performed By: #### C BC #### [facility] [address] [place] [address] Dr. Ashlie Hills INFLUENZA A AG Negative Normal NEGATIVE SEE COMMENT [facility] Comment on above: Performed By: #### C BC #### [facility] [address] [place] [address] Dr. Ashlie Hills INFLUENZA B AG Negative Normal NEGATIVE SEE COMMENT [facility] Comment on above: Performed By: #### C BC #### [facility] [address] [place] [address] Dr. Ashlie Hills POINT OF CARE GLUCOSEon 10 Glucose [Mass/Vol] 108 mg/dL Critically high 74-106 T [facility] Comment on above: Performed By: #### C BC #### [facility] [address] [place] [address] Dr. Ashlie Hills RAGHU by IFAon 03-07-2022 Antinuclear Antibodies, IFA Negative Normal [facility] Comment on above: Result Comment: Nega tive <1:80 Borderline 1:80 Positive >1:80 ICAP nomenclature: AC-0 For more information about Hep-2 cell patterns use ANApatterns.org, the official website for the International Consensus on Antinuclear Antibody (RAGHU) Patterns (ICAP). Performed By: #### A NAIFA #### [facility] [address] [place] [address] Dr. Ashlie Hills IMMUNOFIXATION (TREVON), URINEo n 03-07-2022 TREVON Interpretation:U Comment Normal [facility] Comment on above: Result Comment: No m onoclonality detected. Performed By: #### C BC #### [facility] [address] [place] [address] Dr. Ashlie Hills IMMUNOFIXATION(TREVON),PROTEIN ELEC(PE),FREon 03-07-2022 Albumin [Mass/Vol] 3.0 g/dL Normal 2.9-4.4 [facility] Comment on above: Performed By: #### I NFLUAB #### [facility] [address] [place] [address] Dr. Ashlie Hills Albumin/Globulin [Mass ratio] 0.8 {ratio} Normal 0.7-1 .7 [facility] Comment on above: Performed By: #### I NFLUAB #### [facility] [address] [address] [address] Ashlie Hills Cjryd-9-Wbeloxio 0.3 g/dL Normal 0.0-0.4 [facility] Comment on above: Performed By: #### I NFLUAB #### [facility] [address] [address] [address] Ashlie Hills Nlhub-4-Xbecmfml 1.0 g/dL Normal 0.4-1.0 [facility] Comment on above: Performed By: #### I NFLUAB #### [facility] [address] [address] [address] Ashlie Hills Beta Globulin 1.8 g/dL Critically high 0.7-1.3 [facility] [place] [facility] Comment on above: Performed By: #### I NFLUAB #### [facility] [address] [place] [address] Dr. Ashlie Hills Free Brandt Lt Chains,S 45.2 mg/L Critically high 3.3-19.4 [facility] Comment on above: Performed By: #### I NFLUAB #### [facility] [address] [address] [address] Ashlie Hills Free Lambda Lt Chains,S 40.3 mg/L Critically high 5.7-26. 3 [facility] Comment on above: Performed By: #### I NFLUAB #### [facility] [address] [address] [address] Ashlie Hills Gamma Globulin 0.8 g/dL Normal 0.4-1.8 [facility] Comment on above: Performed By: #### I NFLUAB #### [facility] [address] [address] [address] Ashlie Hills Globulin (S) [Mass/Vol] 3.9 g/dL Normal 2.2-3.9 [facility] Comment on above: Performed By: #### I NFLUAB #### [facility] [address] [address] [address] Ashlie Hills Immunofixation Result, Serum Comment Normal [facility] Comment on above: Result Comment: No m onoclonality detected. Performed By: #### I NFLUAB #### [facility] [address] [address] [address] Ashlie Hills Immunoglobulin A, Qn, Serum 776 mg/dL Critically high 87- 352 [facility] Comment on above: Performed By: #### I NFLUAB #### [facility] [address] [address] [address] Ashlie Hills Immunoglobulin G, Qn, Serum 955 mg/dL Normal 586-1602 [facility] Comment on above: Performed By: #### I NFLUAB #### [facility] [address] [address] [address] Ashlie Hills Immunoglobulin M, Qn, Serum 39 mg/dL Normal 26-217 [facility] Comment on above: Performed By: #### I NFLUAB #### [facility] [address] [address] [address] Ashlie Hills Brandt/Lambda Ratio, S 1.12 Normal 0.26-1.65 [facility] Comment on above: Performed By: #### I NFLUAB #### [facility] [address] [place] [address] Dr. Ashlie Hills M-Bright Not Observed Normal Not Observed [facility] Comment on above: Performed By: #### I NFLUAB #### [facility] [address] [address] [address] Ashlie Hills PDF . Normal [facility] Comment on above: Performed By: #### I NFLUAB #### [facility] [address] [place] [address] Dr. Ashlie Hills Please note: Comment Normal [facility] Comment on above: Result Comment: Prot ein electrophoresis scan will follow via computer, mail, or customer greeter delivery. Performed By: #### I NFLUAB #### [facility] [address] [place] [address] Dr. Ashlie Hills Protein [Mass/Vol] 6.9 g/dL Normal 6.0-8.5 [facility] [place] [facility] Comment on above: Performed By: #### I NFLUAB #### [facility] [address] [address] [address] Ashlie Hills C-PEPTIDE, SERUMon 2 C-Peptide, Serum 3.1 ng/mL Normal 1.1-4.4 [facility] Comment on above: Result Comment: C-Pe ptide reference interval is for fasting patients. Performed By: #### C PEPT #### [facility] [address] [address] [address] Ashlie Hills HEP B SURFACE ANTIGEN SCREEN on 03-04-2022 HBsAg Screen Negative Normal Negative [facility] Comment on above: Performed By: #### C BC #### [facility] [address] [address] [address] Ashlie Hills HEPATITIS C VIRUS AB W/ REFL EX QUANTon 03-04-2022 HCV AB <0.1 Normal 0.0-0.9 [facility] Comment on above: Performed By: #### I NFLUAB #### [facility] [address] [address] [address] Ashlie Hills Interpretation: Comment Normal [facility] Comment on above: Result Comment: Nega tive Not infected with HCV, unless recent infection is suspected or other evidence exists to indicate HCV infection. Performed By: #### I NFLUAB #### [facility] [address] [address] [address] Ashlie Hills MICROALBUMIN/ CREATININE RAT IOon 03-04-2022 Albumin, Urine 367.4 ug/mL Normal Not Estab. [facility] Comment on above: Performed By: #### C BC #### [facility] [address] [address] [address] Ashlie Hills Albumin/ Creatinine Ratio 239 mg/g creat Critically high 0 -29 [facility] Comment on above: Result Comment: Norm al: 0 - 29 Moderately increased: 30 - 300 Severely increased: >300 Performed By: #### C BC #### [facility] [address] [address] [address] Ashlie Hills Creatinine, Urine 153.9 mg/dL Normal Not Estab. [facility] Comment on above: Performed By: #### C BC #### [facility] [address] [address] [address] Ashlie Hills VIT D 25-OH LABCORPon 2021 Vitamin D, 25-Hydroxy <4.0 Critically low 30.0-100.0 [facility] Comment on above: Result Comment: Graciela min D deficiency has been defined by the [place] of Medicine and an Endocrine Society practice guideline as a level of serum 25-OH vitamin D less than 20 ng/mL (1,2). The Endocrine Society went on to further define vitamin D insufficiency as a level between 21 and 29 ng/mL (2). 1. IOM ([place] of Medicine). 2010. Dietary reference intakes for calcium and D. [place]: The National Academies Press. 2. Lynda STAHL, Keely OLIVEROS, Leandra LOPEZ, et al. Evaluation, treatment, and prevention of vitamin D deficiency: an Endocrine Society clinical practice guideline. JCEM. 2010; 96(7):1911-30. Performed By: #### C BC #### [facility] [address] [address] [address] Ashlie Hills GLYCOHEMOGLOBIN A1Con 2021 ADA RECOMMENDATION SEE BELOW Normal [facility] Comment on above: Result Comment: ADA RECOMMENDED LIMIT 4.0 - 6.0 ADA THERAPEUTIC TARGET < 7.0 ACTION SUGGESTED > 7.0 Performed By: #### C VDAGS #### [facility] [address] [address] [address] Ashlie Hills Glucose [Mass/Vol] 295 mg/dL Normal [facility] Comment on above: Performed By: #### C VDAGS #### [facility] [address] [address] [address] Ashlie Hills HbA1c (Bld) [Mass fraction] 11.9 % Critically high 4.5 -6.2 [facility] Comment on above: Performed By: #### C VDAGS #### [facility] [address] [address] [address] Ashlie Hills HEMOGRAM AND PLATELon 2021 Hematocrit (Bld) [Volume fraction] 56.3 % Critically high 36.0-48.0 [facility] Comment on above: Performed By: #### C VDAGS #### [facility] [address] [place] [address] Dr. Ashlie Hills Hemoglobin (Bld) [Mass/Vol] 18.0 g/dL Critically high 12. 0-16.0 [facility] Comment on above: Performed By: #### C VDAGS #### [facility] [address] [place] [address] Dr. Ashlie Hills MCH (RBC) [Entitic mass] 29.5 pg Normal 26.7-34.0 [facility] Comment on above: Performed By: #### C VDAGS #### [facility] [address] [place] [address] Dr. Ashlie Hills MCHC (RBC) [Mass/Vol] 32.0 g/dL Normal 29.9-35.2 [facility] Comment on above: Performed By: #### C VDAGS #### [facility] [address] [place] [address] Dr. Ashlie Hills MCV (RBC) [Entitic vol] 92.1 fL Normal 81.0-99.0 [facility] Comment on above: Performed By: #### C VDAGS #### [facility] [address] [place] [address] Dr. Ashlie Hills PLT 123 103/ul Critically low 150-450 [facility] Comment on above: Performed By: #### C VDAGS #### [facility] [address] [place] [address] Dr. Ashlie Hills RBC 6.11 106/ul Critically high 4.20-5.40 [facility] Comment on above: Performed By: #### C VDAGS #### [facility] [address] [place] [address] Dr. Ashlie Hills WBC 16.4 103/ul Critically high 4.0-11.0 [facility] Comment on above: Performed By: #### C VDAGS #### [facility] [address] [address] [address] Ashlie Hills LIPID PROFILEon 03-03-2022 CHOL-HDL RATIO NORM SEE BELOW Normal [facility] Comment on above: Result Comment: 3.3 - 4.4 LOW RISK 4.4 - 7.1 AVERAGE RISK 7.1 - 11.0 MODERATE RISK >11.0 HIGH RISK Performed By: #### C VDAGS #### [facility] [address] [address] [address] Ashlie Hills Cholesterol [Mass/Vol] 159 mg/dL Normal <=200 [facility] Comment on above: Performed By: #### C VDAGS #### [facility] [address] [place] [address] Dr. Ashlie Hills Cholesterol in HDL [Mass/Vol] 40 mg/dL Normal 40-60 [facility] Comment on above: Performed By: #### C VDAGS #### [facility] [address] [address] [address] Ashlie Hills Cholesterol in LDL [Mass/Vol] 81.8 mg/dL Normal [facility] Comment on above: Performed By: #### C VDAGS #### [facility] [address] [place] [address] Dr. Ashlie Hills Cholesterol.total/Cholestero l in HDL [Mass ratio] 4.0 {ratio} Normal [facility] Comment on above: Performed By: #### C VDAGS #### [facility] [address] [place] [address] Dr. Ashlie Hills HDL NORMAL > or = 60 mg/dl - LO W CARDIOVASCULAR RISK <40 mg/dl - HIGH CARDIOVASCULAR RISK Normal [facility] Comment on above: Performed By: #### C VDAGS #### [facility] [address] [place] [address] Dr. Ashlie Hills LDL CALC NORMAL SEE BELOW Normal [facility] Comment on above: Result Comment: <100 mg/dl OPTIMAL 100 - 129 mg/dl NEAR OR ABOVE OPTIMAL 130 - 159 mg/dl BORDERLINE HIGH 160 - 189 mg/dl HIGH >190 mg/dl VERY HIGH Performed By: #### C VDAGS #### [facility] [address] [address] [address] Ashlie Hills Triglyceride [Mass/Vol] 186 mg/dL Critically high <=150 [facility] Comment on above: Performed By: #### C VDAGS #### [facility] [address] [address] [address] Ashlie Hills VLDL CALC 37.2 mg/dL Normal [facility] [place] [facility] Comment on above: Performed By: #### C VDAGS #### [facility] [address] [place] [address] Dr. Ashlie Hills RENAL FUNCTION PANELon 03-03 Albumin [Mass/Vol] 3.1 g/dL Critically low 3.4-5.0 [facility] Comment on above: Performed By: #### C BC #### [facility] [address] [place] [address] Dr. Ashlie Hills Calcium [Mass/Vol] 9.2 mg/dL Normal 8.5-10.1 [facility] [place] [facility] Comment on above: Performed By: #### C BC #### [facility] [address] [place] [address] Dr. Ashlie Hills Chloride [Moles/Vol] 102 mmol/L Normal 98-107 [facility] Comment on above: Performed By: #### C BC #### [facility] [address] [place] [address] Dr. Ashlie Hills CO2 [Moles/Vol] 31.9 mmol/L Normal 21.0-32.0 [facility] Comment on above: Performed By: #### C BC #### [facility] [address] [place] [address] Dr. Ashlie Hills Creatinine [Mass/Vol] 0.68 mg/dL Normal 0.55-1.02 [facility] Comment on above: Performed By: #### C BC #### [facility] [address] [place] [address] Dr. Ashlie Hills EGFR-AF PERUVIAN >60 Normal >=60 [facility] Comment on above: Performed By: #### C BC #### [facility] [address] [place] [address] Dr. Ashlie Hills EGFR-NON AF PERUVIAN >60 Normal >=60 [facility] Comment on above: Performed By: #### C BC #### [facility] [address] [address] [address] Ashlie Hills Glucose [Mass/Vol] 131 mg/dL Critically high 74-106 T [facility] Comment on above: Performed By: #### C BC #### [facility] [address] [place] [address] Dr. Ashlie Hills Phosphate [Mass/Vol] 4.0 mg/dL Normal 2.6-4.7 [facility] Comment on above: Performed By: #### C BC #### [facility] [address] [place] [address] Dr. Ashlie Hills Potassium [Moles/Vol] 4.0 mmol/L Normal 3.5-5.1 [facility] Comment on above: Performed By: #### C BC #### [facility] [address] [place] [address] Dr. Ashlie Hills Sodium [Moles/Vol] 141 mmol/L Normal 136-145 [facility] [place] [facility] Comment on above: Performed By: #### C BC #### [facility] [address] [place] [address] Dr. Ashlie Hills Urea nitrogen [Mass/Vol] 17.0 mg/dL Normal 7.0-18.0 [facility] Comment on above: Performed By: #### C BC #### [facility] [address] [place] [address] Dr. Ashlie Hills UA RANDOM W/MICROSCOPICon BACTERIA NONE SEEN Normal NONE SEEN [facility] Comment on above: Performed By: #### I NFLUAB #### [facility] [address] [place] [address] Dr. Ashlie Hills Bilirubin Ql (U) Negative Normal NEGATIVE [facility] Comment on above: Performed By: #### I NFLUAB #### [facility] [address] [place] [address] Dr. Ashlie Hills CAST NONE SEEN Normal NONE SEEN [facility] Comment on above: Performed By: #### I NFLUAB #### [facility] [address] [place] [address] Dr. Ashlie Hills Clarity (U) CLEAR Normal CLEAR [facility] Comment on above: Performed By: #### I NFLUAB #### [facility] [address] [place] [address] Dr. Ashlie Hills Color (U) YELLOW Normal YELLOW [facility] Comment on above: Performed By: #### I NFLUAB #### [facility] [address] [place] [address] Dr. Ashlie Hills Crystals LM Nom (Urine sed) NONE SEEN Normal NONE SEE N [facility] Comment on above: Performed By: #### I NFLUAB #### [facility] [address] [place] [address] Dr. Ashlie Hills Epithelial cells LM Ql (Urine sed) FEW Abnormal N ONE SEEN /RARE [facility] Comment on above: Performed By: #### I NFLUAB #### [facility] [address] [place] [address] Dr. Ashlie Hills Glucose Ql (U) Negative Normal NEGATIVE [facility] Comment on above: Performed By: #### I NFLUAB #### [facility] [address] [place] [address] Dr. Ashlie Hills Hemoglobin Ql (U) Negative Normal NEGATIVE [facility] Comment on above: Performed By: #### I NFLUAB #### [facility] [address] [place] [address] Dr. Ashlie Hills Ketones Ql (U) Negative Normal NEGATIVE [facility] [facility] Comment on above: Performed By: #### I NFLUAB #### [facility] [address] [place] [address] Dr. Ashlie Hills LEUKOCYTES Negative Normal NEGATIVE [facility] Comment on above: Performed By: #### I NFLUAB #### [facility] [address] [place] [address] Dr. Ashlie Hills MUCOUS NONE SEEN Normal NONE SEEN [facility] Comment on above: Performed By: #### I NFLUAB #### [facility] [address] [place] [address] Dr. Ashlie Hills Nitrite Ql (U) Negative Normal NEGATIVE [facility] Comment on above: Performed By: #### I NFLUAB #### [facility] [address] [place] [address] Dr. Ashlie Hills pH (U) 5.5 [pH] Normal 5-9 [facility] Comment on above: Performed By: #### I NFLUAB #### [facility] [address] [place] [address] Dr. Ashlie Hills RBC 0-2 Normal 0-2 [facility] Comment on above: Performed By: #### I NFLUAB #### [facility] [address] [place] [address] Dr. Ashlie Hills SPEC GRAVITY >=1.030 Abnormal 1.005-<=1.025 The [facility] Comment on above: Performed By: #### I NFLUAB #### [facility] [address] [place] [address] Dr. Ashlie Hills UA PROTEIN 100 mg/dl Abnormal NEGATIVE/ TRACE [facility] Comment on above: Performed By: #### I NFLUAB #### [facility] [address] [place] [address] Dr. Ashlie Hills Urobilinogen Qn (U) 0.2 {Little'U}/dL Normal 0.2 - 1. 0 [facility] Comment on above: Performed By: #### I NFLUAB #### [facility] [address] [address] [address] Ashlie Hills WBC NONE SEEN Normal NONE SEEN [facility] Comment on above: Performed By: #### I NFLUAB #### [facility] [address] [place] [address] Dr. Ashlie Hills URIC ACID SERUMon 03-03-2022 Urate [Mass/Vol] 5.0 mg/dL Normal 2.6-6.0 [facility] Comment on above: Performed By: #### I NFLUAB #### [facility] [address] [address] [address] Ashlie Hills URINE T PROTEIN CREAT RATIOo n 03-03-2022 Protein (U) [Mass/Vol] 77.9 mg/dL Critically high <=12.0 [facility] Comment on above: Performed By: #### C VDAGS #### [facility] [address] [address] [address] Ashlie Hills UR PROT CREAT RAT 0.44 Normal [facility] Comment on above: Performed By: #### C VDAGS #### [facility] [address] [address] [address] Ashlie Hills URINE CREAT 175.15 mg/dL Normal 20.00-300.00 [facility] Comment on above: Performed By: #### C VDAGS #### [facility] [address] [address] [address] Ashlie Hills Consultation Noteon 02-23-20 22 Consultation Note [id number]:127 Normal [facility] Formson 02-10-2022 Forms [id number] :127 Normal [facility] Physician Referralon 022 Physician Referral [id number]:127 Normal [facility] Ambulatory Visit Summaryon 0 02-06-2022 Ambulatory Visit Summary MITZI MACIAS :1970 Visit Date:02/06/2022 Ambulatory Visit Instructions Your Diagnosis Angiomyolipoma Kidney stone BPH with urinary obstruction Smoker Adrenal mass 1 cm to 4 cm in diameter Other obstructive and reflux uropathy Tests Performed Urnls Dip Stick Auto w/o Microscopy POC [address] CT Abdomen/Pelvis w/ Contrast -- Results Pending -- Please visit your patient portal for your results or contact your primary care physician. Your Care Team Attending Physician - Elbert VARGAS MD Primary Care Physician - LUIS M CHAND CNP Referring Physician - LUIS M CHAND CNP This Is Your Medications List [...] Where: [facility] [address] , [place] [address] [phone] Medications What How Much When Instructions Unchanged [...] Urnls Dip Stick Auto w/o Microscopy POC 98691 (02/06/2022) Bilirubin Urine Dipstick - Negative Blood Urine Dipstick - Negative Glucose Urine Dipstick - 2+ 500 mg/dl Ketones Urine Dipstick - Negative Leukocytes Urine Dipstick - Negative Nitrite Urine Dipstick - Negative Protein Urine Dipstick - 3+ (300 mg/dl) Specific [place] Urine Dipstick - >=1.030 Urine Appearance Urine [...] caused (more content not included)... Normal [facility] Patient Educationon 02-07-20 Patient Education [...] ove (more content not included)... Normal [facility] Office/Clinic Noteon 02-06-2022 Urology Office/Clinic Note [...] of protein. Recommended pt to see a associate justice due to high protein levels in the urine. All questions/concerns were discussed. Pt to call office if she encounters any issues prior. Pt acknowledges understanding. Other obstructive and reflux uropathy (N13.8: Other obstructive and reflux uropathy) Follow-up With When Contact Information REGLA PHIPPS, GEMA Vicente In 6 months [facility] [address], [place] [address]- [phone] Additional Instructions: w/ repeat CT A/P Patient Education Overactive Bladder, Adult I, Enedelia Mendoza, personally scribed for Dr. Vargas on 02/06/2022 11:42:16. . Documentation recorded by the scribe, Enedelia Mendoza, accurately reflects the services(s) I performed and decisions made by me. Authenticated by Dr. Vargas on 02/06/2022 11:45:18. Problem List/Past Medical History Ongoing Adrenal mass 1 cm to 4 cm in diameter Arthritis Asthma COPD type A Headache Hypertension Kidney stone Left flank pain (more content not included)... Normal [facility] Comment on above: Result Comment: Elec tronically Signed By: Elbert VARGAS MD\.br\Date and Time Signed: 02/06/22 11:45 EDT\.br\Electronically Co-Signed By: Enedelia Mendoza\.br\Date and Time Co-Signed: 02/06/22 11:42 EDT CULTURE URINEon 12-25-2021 CULTURE URINE Culture Observations : GREATER THAN TWO ORGANISMS PRESENT, HEAVILY MIXED. PLEASE RESUBMIT CLEAN CATCH MID-STREAM URINE IF CLINICALLY INDICATED. Normal [facility] Comment on above: Performed By: #### I NFLUAB #### [facility] [address] [place] [address] Dr. Ashlie Hills CBC AUTO DIFFon 12-24-2021 BASO # 0.1 103/ul Normal 0.0-0.1 [facility] Comment on above: Performed By: #### C BC #### [facility] [address] [place] [address] Dr. Ashlie Hills Basophils/100 WBC (Bld) 0.5 % Normal 0.2-2.0 [facility] Comment on above: Performed By: #### C BC #### [facility] [address] [place] [address] Dr. Ashlie Hills EO # 0.4 103/ul Normal 0.0-0.7 [facility] Comment on above: Performed By: #### C BC #### [facility] [address] [place] [address] Dr. Ashlie Hills Eosinophils/100 WBC (Bld) 2.4 % Normal 0.9-7.0 [facility] Comment on above: Performed By: #### C BC #### [facility] [address] [place] [address] Dr. Ashlie Hills Erythrocyte distribution wid th (RBC) [Ratio] 14.1 % Normal 11.0-15.0 The [facility] Comment on above: Performed By: #### C BC #### [facility] [address] [place] [address] Dr. Ashlie Hills Hematocrit (Bld) [Volume fraction] 55.9 % Critically high 36.0-48.0 [facility] Comment on above: Performed By: #### C BC #### [facility] [address] [place] [address] Dr. Ashlie Hills Hemoglobin (Bld) [Mass/Vol] 17.9 g/dL Critically high 12. 0-16.0 [facility] Comment on above: Performed By: #### C BC #### [facility] [address] [place] [address] Dr. Ashlie Hills IG # 0.06 10e3/ul Critically high 0.00-0.03 The [facility] Comment on above: Performed By: #### C BC #### [facility] [address] [place] [address] Dr. Ashlie Hills IG % 0.4 % Normal 0.0-0.5 [facility] Comment on above: Performed By: #### C BC #### [facility] [address] [place] [address] Dr. Ashlie Hills LYMPH # 5.8 103/ul Critically high 1.2-3.8 [facility] Comment on above: Performed By: #### C BC #### [facility] [address] [place] [address] Dr. Ashlie Hills Lymphocytes/100 WBC (Bld) 35.4 % Normal 20.5-60.0 [facility] Comment on above: Performed By: #### C BC #### [facility] [address] [place] [address] Dr. Ashlie Hills MANUAL DIFF REQ NO Normal [facility] Comment on above: Performed By: #### C BC #### [facility] [address] [place] [address] Dr. Ashlie Hills MCH (RBC) [Entitic mass] 29.4 pg Normal 26.7-34.0 [facility] Comment on above: Performed By: #### C BC #### [facility] [address] [place] [address] Dr. Ashlie Hills MCHC (RBC) [Mass/Vol] 32.0 g/dL Normal 29.9-35.2 [facility] Comment on above: Performed By: #### C BC #### [facility] [address] [place] [address] Dr. Ashlie Hills MCV (RBC) [Entitic vol] 91.8 fL Normal 81.0-99.0 [facility] Comment on above: Performed By: #### C BC #### [facility] [address] [place] [address] Dr. Ashlie Hills MONO # 0.8 103/ul Normal 0.3-0.8 [facility] Comment on above: Performed By: #### C BC #### [facility] [address] [place] [address] Dr. Ashlie Hills Monocytes/100 WBC (Bld) 4.8 % Normal 1.7-12.0 [facility] Comment on above: Performed By: #### C BC #### [facility] [address] [place] [address] Dr. Ashlie Hills NEUT # 9.3 103/ul Critically high 1.4-6.5 [facility] Comment on above: Performed By: #### C BC #### [facility] [address] [place] [address] Dr. Ashlie Hills Neutrophils/100 WBC (Bld) 56.5 % Normal 43.0-75.0 [facility] Comment on above: Performed By: #### C BC #### [facility] [address] [place] [address] Dr. Ashlie Hills Platelet mean volume (Bld) [ Entitic vol] 12.9 fL Normal 9.5-13.5 [facility] Comment on above: Performed By: #### C BC #### [facility] [address] [address] [address] Ashlie Hills PLT 127 103/ul Critically low 150-450 [facility] Comment on above: Performed By: #### C BC #### [facility] [address] [address] [address] Ashlie Hills RBC 6.09 106/ul Critically high 4.20-5.40 [facility] Comment on above: Performed By: #### C BC #### [facility] [address] [address] [address] Ahslie Hills WBC 16.4 103/ul Critically high 4.0-11.0 [facility] Comment on above: Performed By: #### C BC #### [facility] [address] [place] [address] ABD/PELVIS WO CONon [...] Severe right hip degenerative change. Normal The [facility] ER URINE PROFILEon 2 Bilirubin Ql (U) Negative Normal NEGATIVE [facility] Comment on above: Performed By: #### E EVONNE LYMAN #### [facility] [address] [place] [address] Dr. Ashlie Hills Clarity (U) CLEAR Normal CLEAR [facility] Comment on above: Performed By: #### EVONNE DIAZ #### [facility] [address] [address] [address] Ashlie Hills Color (U) DK. ORANGE Abnormal YELLOW [facility] Comment on above: Performed By: #### E EVONNE LYMAN #### [facility] [address] [address] [address] Ashlie HOBBS A micrscopic examina tion will be performed if indicated. Normal The [facility] l Comment on above: Performed By: #### MADELINE DIAZRO #### [facility] [address] [place] [address] Dr. Ashlie Hills Glucose Ql (U) 250 mg/dl Abnormal NEGATIVE [facility] Comment on above: Performed By: #### Tracey LYMAN UMICRO #### [facility] [address] [place] [address] Dr. Ashlie Hills Hemoglobin Ql (U) Negative Normal NEGATIVE [facility] Comment on above: Performed By: #### Tracey LYMAN UMICRO #### [facility] [address] [place] [address] Dr. Ashlie Hills Ketones Ql (U) Negative Normal NEGATIVE [facility] Comment on above: Performed By: #### PEREZ DIAZICRO #### [facility] [address] [place] [address] Dr. Ashlie Hills LEUKOCYTES Negative Normal NEGATIVE [facility] Comment on above: Performed By: #### PEREZ DIAZICRO #### [facility] [address] [place] [address] Dr. Ashlie Hills Nitrite Ql (U) Negative Normal NEGATIVE [facility] Comment on above: Performed By: #### Tracey LYMAN UMICRO #### [facility] [address] [place] [address] Dr. Ashlie Hills pH (U) 5.0 [pH] Normal 5-9 [facility] Comment on above: Performed By: #### Tracey LYMAN UMICRO #### [facility] [address] [place] [address] Dr. Ashlie Hills Protein (U) [Mass/Vol] 100 mg/dL Abnormal NEGATIVE/ TRA CE [facility] Comment on above: Performed By: #### Tracey LYMAN UMICRO #### [facility] [address] [place] [address] Dr. Ashlie Hills SPEC GRAVITY >=1.030 Abnormal 1.005-<=1.025 [facility] Comment on above: Performed By: #### EVONNE DIAZ #### [facility] [address] [place] [address] Dr. Ashlie Hills UR MICRO IND INDICATED Normal [facility] Comment on above: Performed By: #### EVONNE DIAZ #### [facility] [address] [place] [address] Dr. Ashlie Hlils Urobilinogen Qn (U) 1.0 {Little'U}/dL Normal 0.2 - 1. 0 [facility] Comment on above: Performed By: #### EVONNE DIAZ #### [facility] [address] [place] [address] Dr. Ashlie Hills PROF CHEM 8 (BAS METB)on Anion gap [Moles/Vol] 12.1 mmol/L Normal [facility] Comment on above: Performed By: #### I NFLUAB #### [facility] [address] [place] [address] Dr. Ashlie Hills Calcium [Mass/Vol] 9.0 mg/dL Normal 8.5-10.1 [facility] Comment on above: Performed By: #### I NFLUAB #### [facility] [address] [place] [address] Dr. Ashlie Hills Chloride [Moles/Vol] 101 mmol/L Normal 98-107 [facility] Comment on above: Performed By: #### I NFLUAB #### [facility] [address] [place] [address] Dr. Ashlie Hills CO2 [Moles/Vol] 29.1 mmol/L Normal 21.0-32.0 [facility] Comment on above: Performed By: #### I NFLUAB #### [facility] [address] [place] [address] Dr. Ashlie Hills Creatinine [Mass/Vol] 0.86 mg/dL Normal 0.55-1.02 [facility] Comment on above: Performed By: #### I NFLUAB #### [facility] [address] [address] [address] Ashlie Hills EGFR-AF PERUVIAN >60 Normal >=60 [facility] Comment on above: Performed By: #### I NFLUAB #### [facility] [address] [address] [address] Ashlie Hills EGFR-NON AF PERUVIAN >60 Normal >=60 [facility] Comment on above: Performed By: #### I NFLUAB #### [facility] [address] [address] [address] Ashlie Hills Glucose [Mass/Vol] 236 mg/dL Critically high 74-106 T [facility] Comment on above: Performed By: #### I NFLUAB #### [facility] [address] [place] [address] Dr. Ashlie Hills Potassium [Moles/Vol] 4.2 mmol/L Normal 3.5-5.1 [facility] Comment on above: Performed By: #### I NFLUAB #### [facility] [address] [address] [address] Ashlie Hills Sodium [Moles/Vol] 138 mmol/L Normal 136-145 [facility] Comment on above: Performed By: #### I NFLUAB #### [facility] [address] [place] [address] Dr. Ashlie Hills Urea nitrogen [Mass/Vol] 11.0 mg/dL Normal 7.0-18.0 [facility] Comment on above: Performed By: #### I NFLUAB #### [facility] [address] [address] [address] Ashlie Hills Urea nitrogen/Creatinine [Mass ratio] 12.8 mg/mg Normal [facility] Comment on above: Performed By: #### I NFLUAB #### [facility] [address] [address] [address] Ashlie Hills URINE MICROSCOPIC ONLYon BACTERIA SMALL Abnormal NONE SEEN [facility] Comment on above: Performed By: #### E EVONNE LYMAN #### [facility] [address] [place] [address] Dr. Ashlie Hills Bacteria identified Cx Nom (U) INDICATED Normal [facility] Comment on above: Performed By: #### Tracey LYMAN UMICRO #### [facility] [address] [place] [address] Dr. Ashlie Hills CAST NONE SEEN Normal NONE SEEN [facility] Comment on above: Performed By: #### Tracey LYMAN UMICRO #### [facility] [address] [place] [address] Dr. Ashlie Hills Crystals LM Nom (Urine sed) NONE SEEN Normal NONE SEE N [facility] Comment on above: Performed By: #### Tracey LYMAN UMICRO #### [facility] [address] [place] [address] Dr. Ashlie Hills Epithelial cells LM Ql (Urin e sed) MODERATE Abnormal NONE SEEN /RARE The [facility] pital Comment on above: Performed By: #### Tracey LYMAN UMICRO #### [facility] [address] [place] [address] Dr. Ashlie Hills MUCOUS NONE SEEN Normal NONE SEEN [facility] Comment on above: Performed By: #### Tracey LYMAN UMICRO #### [facility] [address] [place] [address] Dr. Ashlie Hills RBC 0-2 Normal 0-2 [facility] Comment on above: Performed By: #### Tracey LYMAN UMICRO #### [facility] [address] [place] [address] Dr. Ashlie Hills WBC 0-2 Abnormal NONE SEEN [facility] Comment on above: Performed By: #### Tracey LYMAN UMICRO #### [facility] [address] [place] [address] Dr. Ashlie Hills YEAST PRESENT Abnormal NONE SEEN [facility] Comment on above: Performed By: #### Tracey LYMAN UMICRO #### [facility] [address] [place] [address] Dr. Ashlie Hills HIP RIGHT 1 OR 2 VWS WITH PE LVISon 07-20-2020 HIP RIGHT 1 OR 2 VWS WITH PELVIS [facility] Department of Radiology [address] [place] [address] Patient Name: MITZI MACIAS : [...] MRI. Electronically signed: Pipo Acevedo. Transcribed by: [email or web address], User Resident: Electronically Signed by: PIPO ACEVEDO @ 07/20/2020 03:45 PM Normal [facility] Comment on above: Order Comment: evalu ate Vital Signs Date Time Vital Sign Value Performing Clinician Facility 03-08-2022 15:00-0400 Body height 170.18 cm Stephanie Tico Other [facility] Other 03-08-2022 15:00-0400 Body temperature 97.6 [degF] Stephanie Tico Other [facility] Other 03-08-2022 15:00-0400 Diastolic blood pressure 72 mm[Hg] Stephanie Tico Other [facility] Other 03-08-2022 15:00-0400 Respiratory rate 20 /min Stephanie Tico Other [facility] Other 03-08-2022 15:00-0400 SaO2% (BldA) [Mass fraction] 91 % Stephanie Tico Other [facility] Other 03-08-2022 15:00-0400 Systolic blood pressure 131 mm[Hg] Stephanie Tico Other [facility] Other 02-20-2022 09:20-0400 Body height 170.18 cm Stephanie Tico Other [facility] Other 02-20-2022 09:20-0400 Body temperature 96.5 [degF] Stephanie Tico Other [facility] Other 02-20-2022 09:20-0400 Diastolic blood pressure 69 mm[Hg] Stephanie Tico Other [facility] Other 02-20-2022 09:20-0400 Respiratory rate 20 /min Stephanie Tico Other [facility] Other 02-20-2022 09:20-0400 SaO2% (BldA) [Mass fraction] 91 % Stephanie Tico Other [facility] Other 02-20-2022 09:20-0400 Systolic blood pressure 129 mm[Hg] Stephanie Tico Other [facility] Other 02-06-2022 10:24-0400 Blood Pressure Location Elbertprince VARGAS [place] [facility] 02-06-2022 10:24-0400 Diastolic blood pressure 76 mm[Hg] Elbert VARGAS [facility] [place] 02-06-2022 10:24-0400 Heart rate 70 /min Elbert VARGAS [place] [facility] 02-06-2022 10:24-0400 Respiratory rate 16 /min Elbertprince VARGAS [place] [facility] [place] 02-06-2022 10:24-0400 Systolic blood pressure 134 mm[Hg] Elbert VARGAS [place] [facility] [place] Encounters Encounter Date Encounter Type Care Provider Facility Start: 04-22-2024 ambulatory GAVIOTA Maysi ty:SHEA Villalobos Start: 12-05-2022 ambulatory NARENDRANATH LAKSHMIPATHY . Facility:[facility] Start: 12-05-2022 End: 12-06-2022 Evaluation and management of inpatient UMBERTO ALONDRA . Facility: Start: 11-23-2022 End: 11-23-2022 ambulatory [facility] LUIS M LARAJODIE Facility:[facility] Start: 11-22-2022 End: 11-23-2022 ambulatory [facility] LUIS M [facility] Facility:[facility] Start: 11-17-2022 End: 11-18-2022 ambulatory SUBHASH GASPAR . Facility:[facility] Start: 11-15-2022 End: 11-16-2022 [facility]ulatory [facility] Start: 11-15-2022 End: 11-15-2022 Patient encounter procedure GAVIOTA VEGA [facility] Start: 10-05-2022 End: 10-05-2022 ambulatory MARIANO DIAB [...] 03-08-2022 End: 03-08-2022 ambulatory Stephanie Tico Other [facility] Other Start: 03-08-2022 Office outpatient vi sit 15 minutes Stephanie Tico [facility] Start: 03-03-2022 End: 08-27-2022 ambulatory SAYDA CHAND Facility:[facility] Start: 02-20-2022 End: 02-20-2022 ambulatory Stephanie Tico Other [facility] Other Start: 02-20-2022 Office outpatient ne w 45 minutes Stephanie Tico [facility] Start: 02-06-2022 ambulatory GAVIOTA VEGA Facility :[facility] Start: 02-06-2022 End: 02-07-2022 ambulatory LUIS MTaryn BERMUDEZCayetanoJODIE Facility:[facility] Start: 02-06-2022 End: 02-06-2022 Patient encounter procedure Elbert VARGAS [facility] Start: 01-19-2022 End: 01-20-2022 ambulatory GIL VALENZUELA . Facility: Start: 01-05-2022 ambulatory GAVIOTA SILVIA Facility :[facility] Start: 12-24-2021 End: 12-24-2021 ambulatory OLE RAMIREZ Facility: Start: 08-26-2020 End: 09-10-2020 Patient encounter procedure MARY TAVERAS Facility:[facility] Start: 10-30-2019 End: 10-30-2019 Emergency department patient visit RUFINO [facility] Start: 10-30-2019 End: 10-30-2019 Emergency department patient visit [facility] Start: 11-02-2016 Preoperative state Stephanie Tico Other [facility] Other Procedures Date Procedure Procedure Detail Performing Clinician H/O: hysterectomy Elbert LARA Laparoscopic cholecystectomy Elbert VARGAS Operative procedure on foot Elbert VARGAS Plan of Treatment Date Care Activity Detail Author Start: 03-09-2020 Influenza vaccination Flu vacc ine (Season Ended) [place], [place] Start: 2010 Lipid panel Lipid screen [place], [place] Start: 1991 Screening for malign ant neoplasm of cervix Cervical cancer screen [place], [place] Start: 1989 DTaP/Tdap/Td vaccine (1 - Tdap) DTaP/Tdap/Td vaccine (1 - Tdap) [place], [place] Start: 1985 HIV screening HIV screen [place] [place], [place] Immunizations Immunization Date Immunization Notes Care Provider Fa cilisunita 07-19-2021 SARS-CoV-2 (COVID-19 ) mRNA BNT-162b2 vax [employer] [facility] 10-28-2020 SARS-CoV-2 (COVID-19 ) mRNA BNT-162b2 vax [employer] [facility] 10-08-2020 SARS-CoV-2 (COVID-19 ) mRNA BNT-162b2 Mamaya [facility] Payers Date Payer Category Payer Unknown [id number] 2.16.8 40.1.762032.3.579.2.647 1970 Unknown [id number] 2.16.8 40.1.984082.3.579.2.727 1970 Unknown [id number] 2.16.8 40.1.744069.3.579.2.727 1970 Unknown [id number] 2.16.8 40.1.437309.3.579.2.727 1970 Unknown [id number] 2.16.8 40.1.149357.3.579.2.727 1970 Unknown [id number] 2.16.84 0.1.630688.3.579.2.593 1970 Unknown [id number] 2.16.84 0.1.608971.3.579.2.593 1970 Unknown [id number] 2.16.84 0.1.486678.3.579.2.593 1970 Unknown [id number] 2.16.84 0.1.713682.3.579.2.593 1970 Unknown [id number] 2.16.84 0.1.648082.3.579.2.593 1970 Unknown [id number] 2.16.84 0.1.873821.3.579.2.593 1970 Unknown [id number] 2.16.84 0.1.189859.3.579.2.593 1970 Unknown [id number] .16.84 0.1.469640.3.579.2.593 1970 Unknown [id number] 2.16.84 0.1.752552.3.579.2.593 1970 Unknown [id number] .16.84 0.1.360373.3.579.2.593 1970 Unknown [id number] 2.16.84 0.1.209457.3.579.2.593 1970 Unknown [id number] .16.84 0.1.971727.3.579.2.593 1970 Unknown [id number] .16.84 0.1.827641.3.579.2.593 1970 Unknown [id number] .16.84 0.1.062707.3.579.2.593 1970 Unknown [id number] .16.84 0.1.571464.3.579.2.593 1970 Unknown [id number] .16.84 0.1.218436.3.579.2.593 1970 Unknown [id number] .16.84 0.1.420860.3.579.2.593 1970 Unknown [id number] .16.84 0.1.178052.3.579.2.593 1970 Unknown [id number] 2.16.84 0.1.844909.3.579.2.593 1970 Unknown [id number] 2.16.84 0.1.378161.3.579.2.593 1970 Unknown [id number] 2.16.84 0.1.651531.3.579.2.593 1970 Unknown [id number] 2.16.84 0.1.495356.3.579.2.593 1959 Medicaid [id number] 1959 Private Health Insurance [id number] 1959 Unknown [id number] 2.1 6.840.1.345438.19 Social History Date Type Detail Facility Start: 02-17-1994 [facility] day [place] Start: 02-17-1994 History of tobacco use Cigarette Smo [place] Start: 02-17-2014 Cigarettes smoked current (pack per day) - Reported [place] Start: 02-17-2014 Alcohol intake Current drinke r of alcohol (finding) [place] Start: 02-17-2014 Alcohol Comment Rare [place] Sex Assigned At Not on file [place] Exposure to SARS-CoV -2 (event) Unable to assess [place] Start: 02-06-2022 Tobacco smoking status Smoker (findi ng) [facility] Sex Assigned At Female [facility] Start: 11-15-2022 Tobacco smoking status Heavy t obacco smoker (finding) [facility] Functional Status Date Assessment Result Facility 11-15-2022 Functional Status N/A [facility] 02-06-2022 Functional Status N/A [facility] Clinical Notes 01-19-2022 to 11-15-2022 Note Date [...] include: ?8 oz (237 mL) of milk, jmhpepb-aljvssbnclad-lpeup milk, and calcium-fortifiedfruit juice. Calcium-fortified means that [...] ?Spinach (cooked), rhubarb, beets, sweet potatoes, and Slovak chard. ?Peanuts. ?Potato chips, djiboutian fries, and baked potatoes with skin on. ?Nuts and nut products. ?Chocolate. If you regularly take a diuretic medicine, make sure to eat at least 1 or 2 servings of fruits or vegetables that are high in potassium each day. These include: ?Avocado. ?Banana. ?[place], prune, carrot, or tomato juice. ?Baked potato. [...] magnesium, fish oil, or vitamin B6. Take qivi-kdn-aufqwtw and prescription medicines only as told by [...] Casseroles. Pizza. Lasagna. Frozen meals. Potato chips. Citizen [place] fries. The items listed above may not [...] provider. Document Revised: 03/06/2022 Document Reviewed: 03/06/2022 [employer] Patient Education 2022 [employer]. Follow Up Care 02/06/2022 11:44:09 With:SILVIA HOWELL, GAVIOTA Webb, URL Address: [address] [place] [address] When: Unknown [facility] Wilfredo 08-24-2022 Note CONSULTATION CONSULTATION DATE: 08/24/2022 [...] We maintain her on pain medication with Lihue 5/325 t.i.d., diclofenac 75 mg b.i.d. Her [...] rotation and flexion/extension. Paravertebral muscles are non-spasmodic. Keinsha's point is tender to the right with [...] her at this point. A refill for Lihue 5/325 t.i.d. and diclofenac 75 mg b.i.d. will be sent to the pharmacy. Vitamin compliance and nutrition were discussed and enforced. I did highly encourage her to use exercise bands to increase the strength in her lower extremities. We will see her in three months' time, unless otherwise indicated, and patient agrees. [facility] 05-11-2022 Note CONSULTATION CONSULTATION DATE: 05/11/2022 [...] 150. Medications include Lyrica 300 mg b.i.d., Lihue 5/325 t.i.d., diclofenac 75 mg b.i.d. and [...] her medications today. We will maintain Lyrica, Lihue and diclofenac at the set dose and frequency. We will follow-up in the clinic in three months' time. The patient is in agreement to this. Vitamin importance and nutrition were discussed. [facility] 04-20-2022 Note CONSULTATION CONSULTATION DATE: 04/20/2022 [...] medications include Tylenol, Lyrica 300 mg b.i.d., Lihue 5/325 t.i.d., amitriptyline, diclofenac and duloxetine. Patient's [...] be followed up in the clinic. [facility] 03-08-2022 Evaluation note Encounter Date Diagnosis [...] to the DANIEL. Thrombocytopenia is unclear etiology. [employer] Other 08-15-2022 Evaluation note* Encounter Date Diagnosis [...] follow with Dr. Souza and Dr. Vargas. [employer] Other 08-01-2022 Hospital Discharge instructions Patient Education [...] fried and sweet foods. General instructions Take ynwr-vhf-pacdlrj and prescription medicines only as told by [...] 04/21/2010 Document Revised: 10/16/2019 Document Reviewed: 07/11/2018 [employer] Patient Education 2020 [employer]. Follow Up Care 01/05/2022 12:02:03 With:REGLA PHIPPS, Elbert Joya, URL Address: [facility] [address], [place] [address]- [phone] When:Within 6 Month(s) Comments:w/ repeat CT A/P [facility] 07-14-2022 NoteCONSULTATION PROCEDURE DATE: 01/19/2022 PRE [...] pattern and the patient tolerated it well. [facility] Signed and Approved by: GIL VALENZUELA . 01/27/2022 14:15:00[facility]07-14-2022 NoteCONSULTATION CONSULTATION DATE: 01/19/2022 This is [...] today. Medications include Lyrica 300 mg b.i.d., Lihue 5/325 t.i.d., diclofenac 75 mg b.i.d. and [...] in three months' time unless otherwise indicated. [facility] Signed and Approved by: GIL VALENZUELA . 01/27/2022 [facility]ments Appointment Date:08/14/2022 09:15:00 AM Scheduled Provider:Elbert VARGAS MD Location:[facility] Appointment Type:URO Office Visit [facility] evaluation + Plan note Future Appointments Appointment Date:04/22/2024 10:00:00 AM Scheduled Provider:GAVIOTA VEGA PA-C Location:[facility] Appointment Type:URO Office Visit [facility] History general Narrative - Reported* Type [...] History sepsis 2010 Hospitalization History SEE ABOVE [employer] Other Hospital course Narrative No data available for this section [facility] progress note No data available for this section [facility] reason for referral (narrative) , Referral to Dr. 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 DATE CREATED AUTHOR AUTHOR'S ORGANIZ ATION 09/15/2020 [place] DATE CREATED AUTHOR AUTHOR'S ORGANIZ ATION 11/16/2022 [facility] DATE CREATED AUTHOR AUTHOR'S ORGANIZ ATION 12/19/2022 [facility] Care Team (unrecognized sect ion and content) Personnel Name: LUIS M CHAND CNP Address: [address] [place] [id number] Personnel Name: LUIS M CHAND CNP Address: Address: [address] [place], [place] [id number] [place] REASON FOR VISIT (unrecogniz ed section [...] BE BASED ON THE PRIMARY CLINICAL RECORDS. [facility] [employer] [facility]. provides no warranty or guarantee of the accuracy or completeness of information in this document.
== END 2023-06-07 14:28 | disposition home or self-care (01) ==
LOC: LAB 14:27
PROVIDERS: PCP Nurse Practitioner; Visit Provider Nurse Practitioner
DX: Z20.822 Contact with and (suspected) exposure to COVID-19 (principal); Z11.8 Encounter for screening for other infectious and parasitic diseases
CPT/HCPCS: 87635; 87804; 87811

== ENCOUNTER 2023-06-12 08:36 | Day surgery (SDC) | payer MEDICARE, OTHER, SELFPAY ==
[2023-06-12 09:21] VITALS: BP 169/109; PULSE 82; RESP 18; TEMP 36.4; O2SAT 100
[2023-06-12 09:30] LABS: Glucometer 200 mg/dL (74-106)
[2023-06-12 10:12] VITALS: BP 198/93; PULSE 78; RESP 18; O2SAT 92
[2023-06-12 10:15] VITALS: BP 202/96; PULSE 81; RESP 18; O2SAT 90
[2023-06-12] MEDS: BUPIVACAINE HCL 0.25% PF 25 MG/10 ML VIAL 6 ML INJ (10:22)
--- NOTE | 2023-06-12 10:33 | W.PM.PROCNOT ---
Date of procedure: 06/12/23 Pre-op diagnosis: Lumbar spondylosis Post-op diagnosis: same as pre-op Procedure: Bilateral Lumbar 4/5, 5/sacral 1 medial branch block Preop diagnosis includes pain secondary to spondylosis, Postop diagnosis same Under fluoroscopic guidance Solution injected: 2milliliters Marcaine 0.25% Anesthesia :none Immediate complications none Time out process compliant After informed consent obtained from the patient placed in the Pr[employer] proposition . area was prepped and draped in a sterile fashion using betadine .25 gauge spinal needle inserted over each of the above mentioned target areas . [place] were directed towards the target under fluoroscopic guidance . after encountering each of the targets , no indication of intravascular intraneuronal or intrathecal needle tip placement. Then 0 .5 to 1 Milliliter was injected at each level. [place] removed postoperatively. patient transferred to recovery in stable condition to be discharged home after meeting criteria Anesthesia: Local Surgeon: Temo Sharp Condition: stable
== END 2023-06-12 10:30 | disposition home or self-care (01) ==
LOC: SURGOUT 08:36
PROVIDERS: PCP Nurse Practitioner; Visit Provider Anesthesiology Pain Medicine
DX: M47.816 Spondylosis without myelopathy or radiculopathy, lumbar region (principal); Z79.4 Long term (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
CPT/HCPCS: 36415; 64493; 64494; 82948

== ENCOUNTER 2023-06-20 10:11 | Outpatient (OUT) | payer MEDICARE, OTHER, SELFPAY ==
--- NOTE | 2023-06-20 10:39 | P.CN_ITS ---
Consult Note: HPI Data of Consult Patient: known to practice within the last 3 years Requesting Physician: Angela Cochran NP Primary Care Provider: Mckayla Blas Consult Narrative Reason for consult: f/u Narrative: Mitzi Macias a pleasant 52 year old female presents for evaluation and management of low back and right hip pain. Today pain 7/10. Describes it as an aching pain in low back, sharp in right hip. Tolerating current medication regimen well without side effects. Recently underwent bilateral L4-5 L5-S1 MBB #1 with 90% immediate relief and functional improvement which lasted a few hours. Patient would like to continue with second MBB working towards thermal RFA. cc:: CC: Angela Cochran NP Review of Systems ROS Status of ROS 10 or more systems reviewed and unremark able except as noted in history and below Musculoskeletal Reports: back pain and joint pain PFSH PFSH Medical History Acid reflux ?K21.9 - Gastro-esophageal reflux disease without esophagitis (ICD-10) Amputation toe ?S98.139A - Complete traumatic amputation of one unspecified lesser toe, initial encounter (ICD-10) Asthma ?J45.909 - Unspecified asthma, uncomplicated (ICD-10) COPD (chronic obstructive pulmonary disease) ?J44.9 - Chronic obstructive pulmonary disease, unspecified (ICD-10) Diabetes ?E11.9 - Type 2 diabetes mellitus without complications (ICD-10) High cholesterol ?E78.00 - Pure hypercholesterolemia, unspecified (ICD-10) Neuropathy ?G62.9 - Polyneuropathy, unspecified (ICD-10) Surgical History History of hammertoe correction ?Z98.890 - Other specified postprocedural states (ICD-10) ?Z87.39 - Personal history of other diseases of the musculoskeletal system and connective tissue (ICD-10) Hx of cholecystectomy ?Z90.49 - Acquired absence of other specified parts of digestive tract (ICD- 10) History of hysterectomy ?Z90.710 - Acquired absence of both cervix and uterus (ICD-10) Meds Home Medications and Allergies Home Medications Medication Instructions Recorded Confirmed Type acetaminophen 500 mg capsule 1,000 mg PO Q6H PRN fever or pain 03/20/23 06/12/23 History amitriptyline 25 mg tablet 25 mg PO DAILY 03/20/23 06/12/23 History aspirin 81 mg tablet,delayed 81 mg PO DAILY 03/20/23 06/12/23 History release (Adult Aspirin Regimen) budesonide-formoterol HFA 160 2 inh inhalation BID 03/20/23 06/12/23 History mcg-4.5 mcg/actuation aerosol inhaler (Symbicort) diclofenac sodium 75 mg 75 mg PO BID 03/20/23 06/12/23 History tablet,delayed release dulaglutide 3 mg/0.5 mL 3 mg subcut QWEEK 03/20/23 06/12/23 History subcutaneous pen injector (Trulicity) duloxetine 60 mg capsule,delayed 60 mg PO DAILY 03/20/23 06/12/23 History release furosemide 40 mg tablet 40 mg PO DAILY 03/20/23 06/12/23 History hydrocodone 5 mg-acetaminophen 325 1 tab PO TID 03/20/23 06/12/23 History mg tablet insulin aspart U-100 100 unit/mL 1 sliding scale dose subcut 03/20/23 06/12/23 History (3 mL) subcutaneous pen (Novolog USEASDIRECTD FlexPen U-100 Insulin aspart) insulin glargine 100 unit/mL 58 unit subcut BID 03/20/23 06/12/23 History subcutaneous solution (Lantus U-100 Insulin) lisinopril 20 mg tablet 20 mg PO DAILY 03/20/23 06/12/23 History omeprazole 20 mg capsule,delayed 20 mg PO DAILY 03/20/23 06/12/23 History release pregabalin 300 mg capsule 300 mg PO Q12H 03/20/23 06/12/23 History tiotropium bromide 2.5 2 inh inhalation DAILY 03/20/23 06/12/23 History mcg/actuation mist for inhalation (Spiriva Respimat) hydrocodone 5 mg-acetaminophen 325 1 tab PO TID PRN pain #90 tabs 03/26/23 06/12/23 Rx mg tablet duloxetine 60 mg capsule,delayed 60 mg PO BID #60 caps 04/05/23 06/12/23 Rx release hydrocodone 5 mg-acetaminophen 325 1 tab PO TID PRN pain #90 tabs 10/13/23 12/05/23 Rx mg tablet hydrocodone 5 mg-acetaminophen 325 1 tab PO TID PRN pain #90 tabs 06/04/23 06/12/23 Rx mg tablet Allergies Allergy/AdvReac Type Severity Reaction Status Date / Time No Known Drug Allergies Allergy Verified 06/12/23 09:21 Exam Constitutional Documenting provider has reviewed patient's vital signs: yes Common normals: no apparent distress, oriented x3, healthy appearing, alert and well nourished General appearance: cooperative HENMT Common normals: normocephalic, hearing grossly normal bilaterally and moist oral mucous membranes Head and scalp: normocephalic Eye Common normals: PERRL Pupil: PERRL Neck & C-Spine Common normals: full ROM General: normal visual inspection Chest Common normals: inspection of chest normal Respiratory Common normals: normal respiratory effort, no retractions and no use of accessory muscles Back & Pelvis Thoracic spine/upper back: ROM limited and pain with ROM Lumbar spine/lower back: ROM limited and pain with ROM Other: bilateral hip pain right> left bilateral facet loading pain over l4-5 l5-s1 facets Extremity Common normals: normal to inspection Neuro Common normals: oriented x3, CN's II-XII intact bilaterally, moves all extremities, no focal motor deficits, no sensory deficits noted and deep tendon reflexes 2+ bilaterally Sensorium/orientation: alert Gait (neuro): assistive device used other (wheelchair) Motor exam: strength 5/5 throughout and no movement abnormalities noted Psych Common normals: mental status grossly normal, thought process normal, cooperative, affect normal, speech normal and activity/motor behavior normal Speech: normal speech Thought process: normal thought process Results Additional Findings Additional findings: I have checked an [place] report on this patient today and there are no aberrancies noted in the prescribing history.?? A drug screen was completed and reviewed within the last year, and if there has not been a drug screen completed we ordered one today to monitor higher risk, state monitored pain medication use. As part of providing excellent, safe, comprehensive care, the following was completed at our patient's visit: 1. A medication reconciliation and review to ensure accurate knowledge of current/active medications, including asking our patients to inform us about any [id number] medications or herbal remedies/nutritional supplements/alternative remedies. 2. A review to specifically ensure our patients have had annual screening for: elevated body mass index (BMI), tobacco use, screening for depression, and screening for unhealthy alcohol use. When screening is concerning, patients are provided with education and the specific recommendation to discuss the concerning health issue and treatment options with their primary care provider. Assessment and Plan Assessment and Plan (1) Lumbar spondylosis: (2) Chronic pain syndrome: (3) Osteoarthritis: Qualifiers: Osteoarthritis location: unspecified site Osteoarthritis type: unspecified Qualified Code(s): M19.90 - Unspecified osteoarthritis, unspecified site (4) Hypertension: Qualifiers: Hypertension type: unspecified Qualified Code(s): I10 - Essential (primary) hypertension (5) Obesity: Qualifiers: Obesity type: unspecified obesity type Obesity classification: unspecified obesity classification Serious obesity comorbidity presence: unspecified whether serious comorbidity present Qualified Code(s): E66.9 - Obesity, unspecified (6) Chronic prescription opiate use: (7) Osteoarthritis of hip: Qualifiers: Osteoarthritis type: unspecified Laterality: unspecified laterality Qualified Code(s): M16.9 - Osteoarthritis of hip, unspecified (8) Chronic right hip pain: Plan bilateral L4-5 L5-S1 MBB #2 under fluoroscopy working towards thermal RFA continue HEP as tolerated UDS today continue current medications, tolerating well without side effects. risks vs benefits discussed. narcan previously prescribed in the past, non surgical for right hip OA due to obesity, patient now seeking a second opinion f/u 1 week after MBB
== END 2023-06-20 10:12 | disposition home or self-care (01) ==
PROVIDERS: PCP Nurse Practitioner; Visit Provider Nurse Practitioner
DX: M47.816 Spondylosis without myelopathy or radiculopathy, lumbar region (principal); G89.4 Chronic pain syndrome; M19.90 Unspecified osteoarthritis, unspecified site; I10 Essential (primary) hypertension; E66.9 Obesity, unspecified; Z79.891 Long term (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 opiate analgesic; M16.9 Osteoarthritis of hip, unspecified; M25.551 Pain in right hip
CPT/HCPCS: G0463

== ENCOUNTER 2023-08-14 08:42 | Day surgery (SDC) | payer MEDICARE, OTHER, SELFPAY ==
--- OUTSIDE RECORDS SUMMARY | 2023-08-14 08:49 | XMS_ITS | CCD ---
Author Name Unknown Address [address] [place] [address] Organization [facility] Care Team Providers Care Food Science Technician Name Role Phone James Desouza Primary Care Provider [phone] JAMES DESOUZA Primary Care Unavailable MARY TAVERAS Admitting Unavailable GABINODGEANISHAHAL Attending Unavailable AICHHOLZ, LUIS M Primary Care Unavailable AICHHOLZ, LUIS M Referring Unavailable AICHJODIE, LUIS M J Primary Care Physician [phone] Tico, Stephanie Unavailable GAVIOTA VEGA Attending Unavailable GAVIOTA VEGA Attending Unavailable AICHRAVIZ, LUIS M J Referring Unavailable Elbert VARGAS Attending Unavailable OLE RAMIREZ Attending Unavailable OLE RAMIREZ Consulting Unavailable AICHHOLZ, TIMBER MANAGEMENT PROFESSOR LUIS M Primary Care Unavailable OLE RAMIREZ Admitting Unavailable ANTONY SHRESTHA Consulting Unavailable ALONDRA ., UMBERTO Admitting Unavailable ALONDRA ., UMBERTO Attending Unavailable AICHHOLZ, TIMBER MANAGEMENT PROFESSOR LUIS M Primary Care Unavailable AFSANEH Loera, DR BOLANOS Consulting Unavailable MARYANNE POWER Consulting Unavailable GLENN KERR Consulting Unavailable YOMAIRA KERR Consulting Unavailable HATTIE GOFF Consulting Unavailable ALONDRA ., UMBERTO Consulting Unavailable TICO, STEPHANIE Attending Unavailable TICO, STEPHANIE Consulting Unavailable AICHHOLZ, TIMBER MANAGEMENT PROFESSOR LUIS M Primary Care Unavailable TICO, STEPHANIE Admitting Unavailable REGLA ., DR DUMONT Admitting Unavailable AICHHOLZ, TIMBER MANAGEMENT PROFESSOR LUIS M Primary Care Unavailable REGLA ., DR DUMONT Attending Unavailable VARGAS ., DR DUMONT Consulting Unavailable COLLIN HUERTAS Consulting Unavailable CECILIA KAUFMAN Admitting Unavailable CECILIA KAUFMAN Attending Unavailable AICHHOLZ, TIMBER MANAGEMENT PROFESSOR LUIS M Primary Care Unavailable RAFAEL GONGORA Attending Unavailable RAFAEL GONGORA Admitting Unavailable AICHHOLZ, TIMBER MANAGEMENT PROFESSOR LUIS M Primary Care Unavailable AICHHOLZ, TIMBER MANAGEMENT PROFESSOR LUIS M Admitting Unavailable AICHHOLZ, TIMBER MANAGEMENT PROFESSOR LUIS M Primary Care Unavailable AICHHOLZ, TIMBER MANAGEMENT PROFESSOR LUIS M Attending Unavailable AICHHOLZ, TIMBER MANAGEMENT PROFESSOR LUIS M Consulting Unavailable LAKSHMIPATHY ., NARENDRANATH Attending Anette vailable LAKSHMIPATHY ., NARENDRANATH Consulting Anette vailable LAKSHMIPATHY ., NARENDRANATH Admitting Anette vailable AICHHOLZ, TIMBER MANAGEMENT PROFESSOR LUIS M Primary Care Unavailable VALENZUELA ., GIL Consulting Unavailable MORTENSEN ., DR CHAPARRO Aguillon Attending Unavailable MORTENSEN ., DR CHAPARRO Aguillon Admitting Unavailable AICHHOLZ, TIMBER MANAGEMENT PROFESSOR LUIS M Primary Care Unavailable VALENZUELA ., GIL Consulting Unavailable MORTENSEN ., DR CHAPARRO Aguillon Admitting Unavailable AICHHOLZ, TIMBER MANAGEMENT PROFESSOR LUIS M Primary Care Unavailable MORTENSEN ., DR CHAPARRO Aguillon Attending Unavailable HALKER ., SUBHASH Consulting Unavailable LAKSHMIPATHY ., NARENDRANATH Admitting Anette vailable LAKSHMIPATHY ., NARENDRANATH Attending Anette vailable AICHHOLZ, TIMBER MANAGEMENT PROFESSOR LUIS M Primary Care Unavailable MORTENSEN ., DR CHAPARRO Aguillon Attending Unavailable MORTENSEN ., DR CHAPARRO Aguillon Admitting Unavailable VALENZUELA ., GIL Consulting Unavailable AICHHOLZ, TIMBER MANAGEMENT PROFESSOR LUIS M Primary Care Unavailable VALENZUELA ., GIL Consulting Unavailable MORTENSEN ., DR CHAPARRO Aguillon Attending Unavailable MORTENSEN ., DR CHAPARRO Aguillon Admitting Unavailable AICHHOLZ, TIMBER MANAGEMENT PROFESSOR LUIS M Primary Care Unavailable HATTIE BRODERICK Attending Unavailable HATTIE BRODERICK Admitting Unavailable AICHHOLZ, TIMBER MANAGEMENT PROFESSOR LUIS M Primary Care Unavailable AICHHOLZ, TIMBER MANAGEMENT PROFESSOR LUIS M Admitting Unavailable AICHHOLZ, TIMBER MANAGEMENT PROFESSOR LUIS M Consulting Unavailable AICHHOLZ, TIMBER MANAGEMENT PROFESSOR LUIS M Primary Care Unavailable AICHHOLZ, TIMBER MANAGEMENT PROFESSOR LUIS M Attending Unavailable AICHHOLZ, TIMBER MANAGEMENT PROFESSOR LUIS M Primary Care Unavailable MISC, DR LESLIE Admitting Unavailable MISC, DR LESLIE Attending Unavailable MISC, DOCTOR Consulting Unavailable DIAB ., MARIANO Admitting Unavailable DIAB ., MARIANO Attending Unavailable DIAB ., MARIANO Consulting Unavailable AICHHOLZ, TIMBER MANAGEMENT PROFESSOR LUIS M Primary Care Unavailable BLAYNETERICCO SHAH Consulting Unavailable AICHHOLZ, TIMBER MANAGEMENT PROFESSOR LUIS M Admitting Unavailable AICHHOLZ, TIMBER MANAGEMENT PROFESSOR LUIS M Primary Care Unavailable AICHHOLZ, TIMBER MANAGEMENT PROFESSOR LUIS M Attending Unavailable AICHHOLZ, TIMBER MANAGEMENT PROFESSOR LUIS M Consulting Unavailable DR PATRICIA IVAN Consulting Unavailable CECILIA KAUFMAN Attending Unavailable CECILIA KAUFMAN Admitting Unavailable DR PATRICIA IVAN Consulting Unavailable AICHOLZ, TIMBER MANAGEMENT PROFESSOR LUIS M Primary Care Unavailable CECILIA KAUFMAN Consulting Unavailable FESTUS ., DR CHAPARRO Aguillon Attending Unavailable FESTUS ., DR CHAPARRO Aguillon Consulting Unavailable FESTUS ., DR CHAPARRO Aguillon Admitting Unavailable [facility], TIMBER MANAGEMENT PROFESSOR LUIS M Primary Care Unavailable HATTIE BRODERICK Attending Unavailable HATTIE BRODERICK Consulting Unavailable HATTIE BRODERICK Admitting Unavailable AICHOLZ, TIMBER MANAGEMENT PROFESSOR LUIS M Primary Care Unavailable HATTIE BAUTISTA Unavailable AICHHOLZ, TIMBER MANAGEMENT PROFESSOR LUIS M Admitting Unavailable AICHOLZ, TIMBER MANAGEMENT PROFESSOR LUIS M Attending Unavailable AICHOLZ, TIMBER MANAGEMENT PROFESSOR LUIS M Consulting Unavailable AICHOLZ, TIMBER MANAGEMENT PROFESSOR LUIS M Primary Care [facility] Attending Unavailable Allergies Allergy Classification Reported Allergen(s) Allergy Type Date of Onset Reaction(s) Facility (1 source) No Known Medication Allergies; 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: [No Known Medication Allergies] Propensity to adverse reactions (disorder) [facility] Medications Current Medications Medication Drug Class(es) Dates Sig (Normalized) Sig (Original) acetaminophen 325 mg / HYDROcodone bitartrate 5 mg oral tablet (4 sources) Opioid Agonist Start: 02-06-2022 acetaminophen-hydr ocodone 325 mg-5 mg oral tablet Refill(s) 0 Start Date: 02/06/22 Status: Ordered take 1 tablet by vandana twice daily as needed [place] 5-325 MG 1 tablet as needed Orally [...] 02-06-2022 Chronic Other aftercare (1 source) Other nursing home (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 therapy; 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: [OTH CORRECTION CURRENT DRUG THERAPY] Onset: 12-05-2022 Episodic Other aftercare (1 source) 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 Comment on above: Performed By: #### C BC #### [facility] [address] [place] [address] Dr. Ashlie Hills Basophils/100 WBC (Bld) 0.1 % Critically low 0.2-2.[address] [facility] Comment on above: Performed By: #### C BC #### [facility] [address] [place] [address] Dr. Ashlie Hills EO # 0.0 103/ul Normal 0.0-0.[address] [facility] Comment on above: Performed By: #### C BC #### [facility] [address] [place] [address] Dr. Ashlie Hills Eosinophils/100 WBC (Bld) 0.0 % Critically low 0.9-7.[address] [facility] Comment on above: Performed By: #### C BC #### [facility] [address] [address] [address] Ashlie Hills Erythrocyte distribution width (RBC) [Ratio] 14.9 % Normal 11.0-15.0 [facility] Comment on above: Performed By: #### C BC #### [facility] [address] [place] [address] Dr. Ashlie Hills Hematocrit (Bld) [Volume fraction] 46.2 % Normal 36.0-48.[address] [facility] Comment on above: Performed By: #### C BC #### [facility] [address] [place] [address] Dr. Ashlie Hills Hemoglobin (Bld) [Mass/Vol] 14.7 g/dL Normal 12.0-16.[address] [facility] Comment on above: Performed By: #### C BC #### [facility] [address] [place] [address] Dr. Ashlie Hills IG # 0.06 10e3/ul Critically high 0.00-0.03 [facility] Comment on above: Performed By: #### C BC #### [facility] [address] [place] [address] Dr. Ashlie Hills IG % 0.4 % Normal 0.0-0.[address] [facility] Comment on above: Performed By: #### C BC #### [facility] [address] [place] [address] Dr. Ashlie Hills LYMPH # 1.3 103/ul Normal 1.2-3.[address] [facility] Comment on above: Performed By: #### C BC #### [facility] [address] [place] [address] Dr. Ashlie Hills Lymphocytes/100 WBC (Bld) 9.4 % Critically low 20.5-60.[address] [facility] Comment on above: Performed By: #### C BC #### [facility] [address] [place] [address] Dr. Ashlie Hills MANUAL DIFF REQ NO Normal [facility] Comment on above: Performed By: #### C BC #### [facility] [address] [place] [address] Dr. Ashlie Hills MCH (RBC) [Entitic mass] 28.4 pg Normal 26.7-34.[address] [facility] Comment on above: Performed By: #### C BC #### [facility] [address] [place] [address] Dr. Ashlie Hills MCHC (RBC) [Mass/Vol] 31.8 g/dL Normal 29.9-35.2 [facility] Comment on above: Performed By: #### C BC #### [facility] [address] [place] [address] Dr. Ashlie Hills MCV (RBC) [Entitic vol] 89.4 fL Normal 81.0-99.[address] [facility] Comment on above: Performed By: #### C BC #### [facility] [address] [address] [address] Ashlie Hills MONO # 0.5 103/ul Normal 0.3-0.8 [facility] Comment on above: Performed By: #### C BC #### [facility] [address] [address] [address] Ashlie Hills Monocytes/100 WBC (Bld) 3.4 % Normal 1.7-12.[address] [facility] Comment on above: Performed By: #### C BC #### [facility] [address] [place] [address] Dr. Ashlie Hills NEUT # 11.8 103/ul Critically high 1.4-6.5 [facility] Comment on above: Performed By: #### C BC #### [facility] [address] [place] [address] Dr. Ashlie Hills Neutrophils/100 WBC (Bld) 86.7 % Critically high 43.0-75.[address] [facility] Comment on above: Performed By: #### C BC #### [facility] [address] [place] [address] Dr. Ashlie Hills Platelet mean volume (Bld) [Entitic vol] 12.6 fL Normal 9.5-13.[address] [facility] Comment on above: Performed By: #### C BC #### [facility] [address] [place] [address] Dr. Ashlie Hills PLT 133 103/ul Critically low 150-450 [facility] Comment on above: Performed By: #### C BC #### [facility] [address] [place] [address] Dr. Ashlie Hills RBC 5.17 106/ul Normal 4.20-5.40 [facility] Comment on above: Performed By: #### C BC #### [facility] [address] [place] [address] Dr. Ashlie Hills WBC 13.6 103/ul Critically high 4.0-11.0 [facility] Comment on above: Performed By: #### C BC #### [facility] [address] [place], [place] [id number] Dr. Ashlie Hills MAGNESIUMon 12-06-2022 Magnesium [Mass/Vol] 2.2 mg/dL Normal 1.8-2.[address] [facility] Comment on above: Performed By: #### I NFLUAB #### [facility] [address] [place] [address] Dr. sAhlie Hills POINT OF CARE GLUCOSEon 11-08 Glucose [Mass/Vol] 340 mg/dL Critically high [facility]106 [facility] Comment on above: Performed By: #### P OCGLUC #### [facility] [address] [address] [address] Ashlie Hills Glucose [Mass/Vol] 276 mg/dL Critically high [address] [place] [address] Comment on above: Performed By: #### C BC #### [facility] [address] [place] [address] Dr. Ashlie Hills Glucose [Mass/Vol] 333 mg/dL Critically high [address] [place] [address] Comment on above: Performed By: #### C BC #### [facility] [address] [place] [address] Dr. Ashlie Hills PROF CHEM 8 (BAS METB)on Anion gap [Moles/Vol] 10.9 mmol/L Normal [facility] Comment on above: Performed By: #### I NFLUAB #### [facility] [address] [place] [address] Dr. Ashlie Hills Calcium [Mass/Vol] 9.3 mg/dL Normal 8.5-10.1 [facility] Comment on above: Performed By: #### I NFLUAB #### [facility] [address] [place] [address] Dr. Ashlie Hills Chloride [Moles/Vol] 103 mmol/L Normal 98-[address] [facility] Comment on above: Performed By: #### I NFLUAB #### [facility] [address] [place] [address] Dr. Ashlie Hills CO2 [Moles/Vol] 31.2 mmol/L Normal 21.0-32.0 [facility] Comment on above: Performed By: #### I NFLUAB #### [facility] [address] [address] [address] Ashlie Hills Creatinine [Mass/Vol] 0.96 mg/dL Normal 0.55-1.[address] [facility] Comment on above: Performed By: #### I NFLUAB #### [facility] [address] [address] [address] Ashlie Hills EGFR-AF ARGENTINE >60 Normal >=60 [facility] Comment on above: Performed By: #### I NFLUAB #### [facility] [address] [address] [address] Ashlie Hills EGFR-NON AF ARGENTINE >60 Normal >=[address] [facility] Comment on above: Performed By: #### I NFLUAB #### [facility] [address] [address] [address] Ashlie Hills Glucose [Mass/Vol] 288 mg/dL Critically high 74-106 [facility] Comment on above: Performed By: #### I NFLUAB #### [facility] [address] [address] [address] Ashlie Hills Potassium [Moles/Vol] 5.1 mmol/L Normal 3.5-5.[address] [facility] Comment on above: Performed By: #### I NFLUAB #### [facility] [address] [address] [address] Ashlie Hills Sodium [Moles/Vol] 140 mmol/L Normal 136-145 [facility] Comment on above: Performed By: #### I NFLUAB #### [facility] [address] [address] [address] Ashlie Hills Urea nitrogen [Mass/Vol] 30.0 mg/dL Critically high 7.0-18.[address] [facility] Comment on above: Performed By: #### I NFLUAB #### [facility] [address] [address] [address] Ashlie Hills Urea nitrogen/Creatinine [Mass ratio] 31.2 mg/mg Normal [facility] Comment on above: Performed By: #### I NFLUAB #### [facility] [address] [address] [address] Ashlie Hills CBC AUTO DIFFon 12-05-2022 BASO # 0.0 103/ul Normal 0.0-0.[address] [facility] Comment on above: Performed By: #### C BC #### [facility] [address] [address] [address] Ashlie Hills Basophils/100 WBC (Bld) 0.4 % Normal 0.2-2.[address] [facility] Comment on above: Performed By: #### C BC #### [facility] [address] [address] [address] Ashlie Hills EO # 0.0 103/ul Normal 0.0-0.[address] [facility] Comment on above: Performed By: #### C BC #### [facility] [address] [place] [address] Dr. Ashlie Hills Eosinophils/100 WBC (Bld) 0.0 % Critically low 0.9-7.[address] [facility] Comment on above: Performed By: #### C BC #### [facility] [address] [address] [address] Ashlie Hills Erythrocyte distribution width (RBC) [Ratio] 14.8 % Normal 11.0-15.[address] [facility] Comment on above: Performed By: #### C BC #### [facility] [address] [place] [address] Dr. Ashlie Hills Hematocrit (Bld) [Volume fraction] 49.9 % Critically high 36.0-48.[address] [facility] Comment on above: Performed By: #### C BC #### [facility] [address] [address] [address] Ashlie Hills Hemoglobin (Bld) [Mass/Vol] 15.7 g/dL Normal 12.0-16.[address] [facility] Comment on above: Performed By: #### C BC #### [facility] [address] [address] [address] Ashlie Hills IG # 0.04 10e3/ul Critically high 0.00-0.03 [facility] Comment on above: Performed By: #### C BC #### [facility] [address] [address] [address] Ashlie Hills IG % 0.5 % Normal 0.0-0.[address] [facility] Comment on above: Performed By: #### C BC #### [facility] [address] [place] [address] Dr. Ashlie Hills LYMPH # 1.1 103/ul Critically low 1.2-3.8 [facility] Comment on above: Performed By: #### C BC #### [facility] [address] [place] [address] Dr. Ashlie Hills Lymphocytes/100 WBC (Bld) 12.7 % Critically low 20.5-60.[address] [facility] Comment on above: Performed By: #### C BC #### [facility] [address] [place] [address] Dr. Ashlie Hills MANUAL DIFF REQ NO Normal [facility] Comment on above: Performed By: #### C BC #### [facility] [address] [place] [address] Dr. Ashlie Hills MCH (RBC) [Entitic mass] 28.1 pg Normal 26.7-34.[address] [facility] Comment on above: Performed By: #### C BC #### [facility] [address] [place] [address] Dr. Ashlie Hills MCHC (RBC) [Mass/Vol] 31.5 g/dL Normal 29.9-35.[address] [facility] Comment on above: Performed By: #### C BC #### [facility] [address] [place] [address] Dr. Ashlie Hills MCV (RBC) [Entitic vol] 89.3 fL Normal 81.0-99.[address] [facility] Comment on above: Performed By: #### C BC #### [facility] [address] [place] [address] Dr. Ashlie Hills MONO # 0.1 103/ul Critically low 0.3-0.8 [facility] Comment on above: Performed By: #### C BC #### [facility] [address] [address] [address] Ashlie Hills Monocytes/100 WBC (Bld) 1.3 % Critically low 1.7-12.[address] [facility] Comment on above: Performed By: #### C BC #### [facility] [address] [address] [address] Ashlie Hills NEUT # 7.2 103/ul Critically high 1.4-6.5 [facility] Comment on above: Performed By: #### C BC #### [facility] [address] [address] [address] Ashlie Hills Neutrophils/100 WBC (Bld) 85.1 % Critically high 43.0-75.[address] [facility] Comment on above: Performed By: #### C BC #### [facility] [address] [address] [address] Ashlie Hills Platelet mean volume (Bld) [Entitic vol] 12.2 fL Normal 9.5-13.[address] [facility] Comment on above: Performed By: #### C BC #### [facility] [address] [address] [address] Ashlie Hills PLT 116 103/ul Critically low 150-450 [facility] Comment on above: Performed By: #### C BC #### [facility] [address] [address] [address] Ashlie Hills RBC 5.59 106/ul Critically high 4.20-5.40 [facility] Comment on above: Performed By: #### C BC #### [facility] [address] [address] [address] Ashlie Hills WBC 8.5 103/ul Normal 4.0-11.[address] [facility] Comment on above: Performed By: #### C BC #### [facility] [address] [address] [address] Ashlie Hills CTA CHEST WO W CONon 12-05-2 023 CTA CHEST WO W CON EXAMINATION: CTA CHEST WO W CON, 12/04/2022 7:57 PM PDT [...] finding. IMPRESSION: No evidence of pulmonary emboli. Infectious/inflammat ory changes, predominantly in the left upper lobe, with mild involvement in the left lower lobe. Mild peribronchial thickening. Mildly enlarged mediastinal/hilar lymph nodes, likely reactive. Increase in size of now 3.6 cm left adrenal myelolipoma. Electronically authenticated by: HATTIE GOFF Date: 2022-12-05 01:[address] [facility] MAGNESIUMon 12-05-2022 Magnesium [Mass/Vol] 2.1 mg/dL Normal 1.8-2.[address] [facility] Comment on above: Performed By: #### P OCGLUC #### [facility] [address] [address] [address] Ashlie Hills POINT OF CARE GLUCOSEon 11-08 Glucose [Mass/Vol] 293 mg/dL Critically high 74-106 [facility] Comment on above: Performed By: #### P OCGLUC #### [facility] [address] [address] [address] Ashlie Hills Glucose [Mass/Vol] 269 mg/dL Critically high 74-106 [facility] Comment on above: Performed By: #### P OCGLUC #### [facility] [address] [address] [address] Ashlie Hills Glucose [Mass/Vol] 223 mg/dL Critically high 74-106 [facility] Comment on above: Performed By: #### C VDAGS #### [facility] [address] [address] [address] Ashlie Hills PROF CHEM 8 (BAS METB)on Anion gap [Moles/Vol] 11.6 mmol/L Normal [facility] Comment on above: Performed By: #### P OCGLUC #### [facility] [address] [address] [address] Ashlie Hills Calcium [Mass/Vol] 9.2 mg/dL Normal 8.5-10.1 [facility] Comment on above: Performed By: #### P OCGLUC #### [facility] [address] [address] [address] Ashlie Hills Chloride [Moles/Vol] 102 mmol/L Normal 98-[address] [facility] Comment on above: Performed By: #### P OCGLUC #### [facility] [address] [address] [address] Ashlie Hills CO2 [Moles/Vol] 28.7 mmol/L Normal 21.0-32.0 [facility] Comment on above: Performed By: #### P OCGLUC #### [facility] [address] [address] [address] Ashlie Hills Creatinine [Mass/Vol] 1.04 mg/dL Critically high 0.55-1.[address] [facility] Comment on above: Performed By: #### P OCGLUC #### [facility] [address] [address] [address] Ashlie Hills EGFR-AF ARGENTINE >60 Normal >=60 [facility] Comment on above: Performed By: #### P OCGLUC #### [facility] [address] [address] [address] Ashlie Hills EGFR-NON AF ARGENTINE 56 mL/min/1.73m2 Critically low >=[address] [facility] Comment on above: Performed By: #### P OCGLUC #### [facility] [address] [address] [address] Ashlie Hills Glucose [Mass/Vol] 231 mg/dL Critically high 74-106 [facility] Comment on above: Performed By: #### P OCGLUC #### [facility] [address] [place] [address] [address] Ashlie [place] Potassium [Moles/Vol] 4.3 mmol/L Normal 3.5-5.[address] [facility] Comment on above: Performed By: #### P OCGLUC #### [facility] [address] [address] [address] Ashlie [place] Sodium [Moles/Vol] 138 mmol/L Normal 136-145 [facility] Comment on above: Performed By: #### P OCGLUC #### [facility] [address] [address] [address] Ashlie [place] Urea nitrogen [Mass/Vol] 17.0 mg/dL Normal 7.0-18.[address] [facility] Comment on above: Performed By: #### P OCGLUC #### [facility] [address] [address] [address] Ashlie [place] Urea nitrogen/Creatinine [Mass ratio] 16.3 mg/mg Normal [facility] Comment on above: Performed By: #### P OCGLUC #### [facility] [address] [address] [address] Ashlie Hills RESPIRATORY PANEL PLUSon Adenovirus Not detected Normal NOT DETECTED [facility] Comment on above: Performed By: #### C VDAGS #### [facility] [address] [address] [address] Ashlie Hills B. Parapertusis Not detected Normal NOT DETECTED [facility] Comment on above: Performed By: #### C VDAGS #### [facility] [address] [address] [address] Ashlie Hills B. Pertussis Not detected Normal NOT DETECTED [facility] Comment on above: Performed By: #### C VDAGS #### [facility] [address] [place] [address] Dr. Ashlie Hills Chlamydia Pneumoniae Not detected Normal NOT DETECTED [facility] Comment on above: Performed By: #### C VDAGS #### [facility] [address] [address] [address] Ashlie Hills Coronavirus 229E Not detected Normal NOT DETECTED [facility] Comment on above: Performed By: #### C VDAGS #### [facility] [address] [place] [address] Dr. Ashlie Hills Coronavirus HKU1 Not detected Normal NOT DETECTED [facility] Comment on above: Performed By: #### C VDAGS #### [facility] [address] [place] [address] Dr. Ashlie Hills Coronavirus NL63 Not detected Normal NOT DETECTED [facility] Comment on above: Performed By: #### C VDAGS #### [facility] [address] [place] [address] Dr. Ashlie Hills Coronavirus OC43 Not detected Normal NOT DETECTED [facility] Comment on above: Performed By: #### C VDAGS #### [facility] [address] [place] [address] Dr. Ashlie Hills Influenza A H1 Not detected Normal NOT DETECTED [facility] Comment on above: Performed By: #### C VDAGS #### [facility] [address] [place] [address] Dr. Ashlie Hills Influenza A H1 2009 Not detected Normal NOT DETECTED [facility] Comment on above: Performed By: #### C VDAGS #### [facility] [address] [place] [address] Dr. Ashlie Hills Influenza A H3 Not detected Normal NOT DETECTED [facility] Comment on above: Performed By: #### C VDAGS #### [facility] [address] [place] [address] Dr. Ashlie Hills Influenza B Not detected Normal NOT DETECTED [facility] Comment on above: Performed By: #### C VDAGS #### [facility] [address] [place] [address] Dr. Ashlie Hills Metapneumovirus Not detected Normal NOT DETECTED [facility] Comment on above: Performed By: #### C VDAGS #### [facility] [address] [address] [address] Ashlie Hills Mycoplas. Pneumoniae Not detected Normal NOT DETECTED [facility] Comment on above: Performed By: #### C VDAGS #### [facility] [address] [address] [address] Ashlie Hills Parainfluenza 1 Not detected Normal NOT DETECTED [facility] Comment on above: Performed By: #### C VDAGS #### [facility] [address] [address] [address] Ashlie Hills Parainfluenza 2 Not detected Normal NOT DETECTED [facility] Comment on above: Performed By: #### C VDAGS #### [facility] [address] [place] [address] Dr. Ashlie Hills Parainfluenza 3 Detected Abnormal NOT DETECTED [facility] Comment on above: Performed By: #### C VDAGS #### [facility] [address] [place] [address] Dr. Ashlie Hills Parainfluenza 4 Not detected Normal NOT DETECTED [facility] Comment on above: Performed By: #### C VDAGS #### [facility] [address] [place] [address] Dr. Ashlie Hills Rhino/Enterovirus Not detected Normal NOT DETECTED [facility] Comment on above: Performed By: #### C VDAGS #### [facility] [address] [place] [address] Dr. Ashlie Hills RP2 Header 1 RESPIRATORY PANEL: VIRUSES Normal [facility] Comment on above: Performed By: #### C VDAGS #### [facility] [address] [place] [address] Dr. Ashlie Hills RP2 Header 2 RESPIRATORY PANEL: BACTERIA Normal [facility] Comment on above: Performed By: #### C VDAGS #### [facility] [address] [place] [address] Dr. Ashlie Hills RSV Not detected Normal NOT DETECTED [facility] Comment on above: Performed By: #### C VDAGS #### [facility] [address] [place] [address] Dr. Ashlie Hills SARS-CoV-2 (COVID-19) RNA MADDY+probe Ql (Unsp spec) Not detected Normal NOT DETECTED [facility] Comment on above: Performed By: #### C VDAGS #### [facility] [address] [place] [address] Dr. Ashlie Hills XR CHEST 1 Von 12-05-2022 XR CHEST 1 V EXAMINATION: XR CHEST 1 V HISTORY: Shortness of breath COMPARISON: Chest x-ray 08/09/2021 TECHNIQUE: Portable chest FINDINGS: The lung parenchyma is free of consolidation or infiltrate. No pneumothorax or pleural effusion. The cardiac, mediastinal and hilar contours are normal. The visualized osseous structures exhibit no gross abnormality. IMPRESSION: No acute cardiopulmonary abnormality. Electronically authenticated by: MARYANNE POWER Date: 2022-12-04 22:[address] [facility] MODE ROOM AIR Normal [facility] Comment on above: Performed By: #### C BC #### [facility] [address] [place] [address] Dr. Ashlie Hills ALLENS TEST Positive Normal [facility] Comment on above: Performed By: #### C BC #### [facility] [address] [place] [address] Dr. Ashlie Hills Base excess Calc (Bld) [Moles/Vol] 5.4 mmol/L Critically high -2.0-2.[address] [facility] Comment on above: Performed By: #### C BC #### [facility] [address] [place] [address] Dr. Ashlie Hills BIPAP PRESSURE Normal [facility] Comment on above: Performed By: #### C BC #### [facility] [address] [place] [address] Dr. Ashlie Hills CPAP Normal [facility] Comment on above: Performed By: #### C BC #### [facility] [address] [address] [address] Ashlie Hills FIO2 [facility] Comment on above: Performed By: #### C BC #### [facility] [address] [place] [address] Dr. Ashlie Hills HCO3 (Bld) [Moles/Vol] 30.8 mmol/L Critically high 22.0-26.[address] [facility] Comment on above: Performed By: #### C BC #### [facility] [address] [place] [address] Dr. Ashlie Hills LPM [facility] Comment on above: Performed By: #### C BC #### [facility] [address] [place] [address] Dr. Ashlie Hills MINUTE VOLUME Normal [facility] Comment on above: Performed By: #### C BC #### [facility] [address] [place] [address] Dr. Ashlie Hills Oxygen (Bld) [Partial pressure] 46.3 mm[Hg] Critically low 80.0-100.[address] [facility] Comment on above: Performed By: #### C BC #### [facility] [address] [place] [address] Dr. Ashlie Hills Oxygen saturation in Blood 83.9 % Critically low 95.0-100.[address] [facility] Comment on above: Performed By: #### C BC #### [facility] [address] [place] [address] Dr. Ashlie Hills PCO2 54.2 mmHg Critically high 35.0-45.0 [facility] Comment on above: Performed By: #### C BC #### [facility] [address] [place] [address] Dr. Ashlie Hills PEEP [facility] Comment on above: Performed By: #### C BC #### [facility] [address] [place] [address] Dr. Ashlie Hills pH (Bld) 7.363 [pH] Normal 7.350-7.[address] [facility] Comment on above: Performed By: #### C BC #### [facility] [address] [place] [address] Dr. Ashlie Hills [facility] Comment on above: Performed By: #### C BC #### [facility] [address] [place] [address] Dr. Ashlie Hills [facility] Comment on above: Performed By: #### C BC #### [facility] [address] [place] [address] Dr. Ashlie Hills PUNCTURE SITE LR [facility] Comment on above: Performed By: #### C BC #### [facility] [address] [place] [address] Dr. sAhlie Hills [facility] Comment on above: Performed By: #### C BC #### [facility] [address] [place] [address] Dr. Ashlie Hills VENT MODE [facility] Comment on above: Performed By: #### C BC #### [facility] [address] [place] [address] Dr. Ashlie Hills [facility] Comment on above: Performed By: #### C BC #### [facility] [address] [place] [address] Dr. Ashlie Hills BNPon 12-04-2022 Natriuretic peptide B (Bld) [Mass/Vol] 76.0 pg/mL Normal <=900.[address] [facility] Comment on above: Performed By: #### P OCGLUC #### [facility] [address] [place] [address] Dr. Ashlie Hills CBC AUTO DIFFon 12-04-2022 BASO # 0.1 103/ul Normal 0.0-0.[address] [facility] Comment on above: Performed By: #### C BC #### [facility] [address] [place] [address] Dr. Ashlie Hills Basophils/100 WBC (Bld) 0.6 % Normal 0.2-2.[address] [facility] Comment on above: Performed By: #### C BC #### [facility] [address] [place] [address] Dr. Ashlie Hills EO # 0.2 103/ul Normal 0.0-0.[address] [facility] Comment on above: Performed By: #### C BC #### [facility] [address] [place] [address] Dr. Ashlie Hills Eosinophils/100 WBC (Bld) 1.9 % Normal 0.9-7.[address] [facility] Comment on above: Performed By: #### C BC #### [facility] [address] [place] [address] Dr. Ashlie Hills Erythrocyte distribution width (RBC) [Ratio] 15.0 % Normal 11.0-15.[address] [facility] Comment on above: Performed By: #### C BC #### [facility] [address] [place] [address] Dr. Ashlie Hills Hematocrit (Bld) [Volume fraction] 49.1 % Critically high 36.0-48.[address] [facility] Comment on above: Performed By: #### C BC #### [facility] [address] [place] [address] Dr. Ashlie Hills Hemoglobin (Bld) [Mass/Vol] 15.6 g/dL Normal 12.0-16.[address] [facility] Comment on above: Performed By: #### C BC #### [facility] [address] [place] [address] Dr. Ashlie Hills IG # 0.02 10e3/ul Normal 0.00-0.03 [facility] Comment on above: Performed By: #### C BC #### [facility] [address] [place] [address] Dr. Ashlie Hills IG % 0.2 % Normal 0.0-0.5 [facility] Comment on above: Performed By: #### C BC #### [facility] [address] [place] [address] Dr. Ashlie Hills LYMPH # 2.8 103/ul Normal 1.2-3.8 [facility] Comment on above: Performed By: #### C BC #### [facility] [address] [place] [address] Dr. Ashlie Hills Lymphocytes/100 WBC (Bld) 29.9 % Normal 20.5-60.[address] [facility] Comment on above: Performed By: #### C BC #### [facility] [address] [place] [address] Dr. Ashlie Hills MANUAL DIFF REQ NO Normal [facility] Comment on above: Performed By: #### C BC #### [facility] [address] [place] [address] Dr. Ashlie Hills MCH (RBC) [Entitic mass] 28.5 pg Normal 26.7-34.[address] [facility] Comment on above: Performed By: #### C BC #### [facility] [address] [place] [address] Dr. Ashlie Hills MCHC (RBC) [Mass/Vol] 31.8 g/dL Normal 29.9-35.[address] [facility] Comment on above: Performed By: #### C BC #### [facility] [address] [place] [address] Dr. Ashlie Hills MCV (RBC) [Entitic vol] 89.8 fL Normal 81.0-99.[address] [facility] Comment on above: Performed By: #### C BC #### [facility] [address] [place] [address] Dr. Ashlie Hills MONO # 1.0 103/ul Critically high 0.3-0.8 [facility] Comment on above: Performed By: #### C BC #### [facility] [address] [place] [address] Dr. Ashlie Hills Monocytes/100 WBC (Bld) 10.6 % Normal 1.7-12.[address] [facility] Comment on above: Performed By: #### C BC #### [facility] [address] [place] [address] Dr. Ashlie Hills NEUT # 5.3 103/ul Normal 1.4-6.5 [facility] Comment on above: Performed By: #### C BC #### [facility] [address] [place] [address] Dr. Ashlie Hills Neutrophils/100 WBC (Bld) 56.8 % Normal 43.0-75.0 [facility] Comment on above: Performed By: #### C BC #### [facility] [address] [address] [address] Ashlie Hills Platelet mean volume (Bld) [Entitic vol] 12.5 fL Normal 9.5-13.[address] [facility] Comment on above: Performed By: #### C BC #### [facility] [address] [address] [address] Ashlie Hills PLT 109 103/ul Critically low 150-450 [facility] Comment on above: Performed By: #### C BC #### [facility] [address] [place] [address] Dr. Ashlie Hills RBC 5.47 106/ul Critically high 4.20-5.40 [facility] Comment on above: Performed By: #### C BC #### [facility] [address] [place] [address] Dr. Ashlie Hills WBC 9.4 103/ul Normal 4.0-11.[address] [facility] Comment on above: Performed By: #### C BC #### [facility] [address] [place] [address] Dr. Ashlie Hills PROF 14(COMP METB)on 023 Albumin [Mass/Vol] 2.9 g/dL Critically low 3.4-5.0 [place] Comment on above: Performed By: #### C BC #### [facility] [address] [place] [address] Dr. Ashlie Hills Albumin/Globulin [Mass ratio] 0.6 {ratio} Normal [facility] Comment on above: Performed By: #### C BC #### [facility] [address] [place] [address] Dr. Ashlie Hills ALP [Catalytic activity/Vol] 64 U/L Normal 46-[address] [facility] Comment on above: Performed By: #### C BC #### [facility] [address] [place] [address] Dr. Ashlie Hills ALT [Catalytic activity/Vol] 16 U/L Normal 14-[address] [facility] Comment on above: Performed By: #### C BC #### [facility] [address] [address] [address] Ashlie Hills Anion gap [Moles/Vol] 9.6 mmol/L Normal [facility] Comment on above: Performed By: #### C BC #### [facility] [address] [address] [address] Ashlie Hills AST [Catalytic activity/Vol] 16 U/L Normal 15-[address] [facility] Comment on above: Performed By: #### C BC #### [facility] [address] [address] [address] Ashlie Hills Bilirubin [Mass/Vol] 0.5 mg/dL Normal 0.2-1.[address] [facility] Comment on above: Performed By: #### C BC #### [facility] [address] [address] [address] Ashlie Hills Calcium [Mass/Vol] 8.7 mg/dL Normal 8.5-10.1 [facility] Comment on above: Performed By: #### C BC #### [facility] [address] [address] [address] Ashlie Hills Chloride [Moles/Vol] 103 mmol/L Normal 98-[address] [facility] Comment on above: Performed By: #### C BC #### [facility] [address] [address] [address] Ashlie Hills CO2 [Moles/Vol] 30.7 mmol/L Normal 21.0-32.0 [facility] Comment on above: Performed By: #### C BC #### [facility] [address] [address] [address] Ashlie Hills Creatinine [Mass/Vol] 0.96 mg/dL Normal 0.55-1.[address] [facility] Comment on above: Performed By: #### C BC #### [facility] [address] [address] [address] Ashlie Hills EGFR-AF ARGENTINE >60 Normal >=60 [facility] Comment on above: Performed By: #### C BC #### [facility] [address] [place] [address] Dr. Ashlie Hills EGFR-NON AF ARGENTINE >60 Normal >=[address] [facility] Comment on above: Performed By: #### C BC #### [facility] [address] [place] [address] Dr. Ashlie Hills Globulin (S) [Mass/Vol] 4.7 g/dL Normal [facility] Comment on above: Performed By: #### C BC #### [facility] [address] [address] [address] Ashlie Hills Glucose [Mass/Vol] 170 mg/dL Critically high 74-106 [facility] Comment on above: Performed By: #### C BC #### [facility] [address] [place] [address] Dr. Ashlie Hills Potassium [Moles/Vol] 4.3 mmol/L Normal 3.5-5.[address] [facility] Comment on above: Performed By: #### C BC #### [facility] [address] [place] [address] Dr. Ashlie Hills Protein [Mass/Vol] 7.6 g/dL Normal 6.4-8.2 [facility] Comment on above: Performed By: #### C BC #### [facility] [address] [place] [address] Dr. Ashlie Hills Sodium [Moles/Vol] 139 mmol/L Normal 136-145 [facility] Comment on above: Performed By: #### C BC #### [facility] [address] [place] [address] Dr. Ashlie Hills Urea nitrogen [Mass/Vol] 16.0 mg/dL Normal 7.0-18.[address] [facility] Comment on above: Performed By: #### C BC #### [facility] [address] [place] [address] Dr. Ashlie Hills Urea nitrogen/Creatinine [Mass ratio] 16.7 mg/mg Normal [facility] Comment on above: Performed By: #### C BC #### [facility] [address] [place] [address] Dr. Ashlie Hills SYMPTOMATIC COVID-19 ANTIGEN on 12-04-2022 EUA Statement SEE BELOW Normal [facility] Comment on above: Result Comment: This [...] sooner. Performed By: #### C VDAGS #### [facility] [address] [place] [address] Dr. Ashlie Hills SARS-CoV-2 (COVID-19) RNA MADDY+probe Ql (Unsp spec) Negative Normal NEGATIVE [facility] Comment on above: Performed By: #### C VDAGS #### [facility] [address] [address] [address] Ashlie Hills TROPONIN, HIGH SENSITIVITYon 12-04-2022 HSTROP 8.9 pg/mL Normal 4.0-51.3 [facility] Comment on above: Result Comment: CUT- OFF POINTS HAVE BEEN ESTABLISHED BASED ON THE FOURTH UNIVERSAL DEFINITIONS OF MYOCARDIAL INFARCTION. THE UPPER REFERENCE LIMIT (URL) OF TROPONIN, DEFINED THE 99TH PERCENTILE OF cTnI DISTRIBUTION IN A REFERENCE POPULATION, HAS BEEN CONFIRMED THE DECISION THRESHOLD FOR OR DIAGNOSIS. Performed By: #### P OCGLUC #### [facility] [address] [address] [address] Ashlie Hills MICROALBUMIN, RAND URon 11-06 mALB 35.8 mg/dL Critically high <=30.0 [facility] Comment on above: Performed By: #### C VDAGS #### [facility] [address] [address] [address] Ashlie Hills UA RANDOM W/MICROSCOPICon BACTERIA NONE SEEN Normal NONE SEEN [facility] Comment on above: Performed By: #### C VDAGS #### [facility] [address] [place] [address] Dr. Ashlie Hills Bilirubin Ql (U) Negative Normal NEGATIVE [facility] Comment on above: Performed By: #### C VDAGS #### [facility] [address] [place] [address] Dr. Ashlie Hills CAST SEEN Abnormal NONE SEEN [facility] Comment on above: Performed By: #### C VDAGS #### [facility] [address] [place] [address] Dr. Ashlie Hills Clarity (U) CLEAR Normal CLEAR [facility] Comment on above: Performed By: #### C VDAGS #### [facility] [address] [place] [address] Dr. Ashlie Hills Color (U) YELLOW Normal YELLOW [facility] Comment on above: Performed By: #### C VDAGS #### [facility] [address] [place] [address] Dr. Ashlie Hills Crystals LM Nom (Urine sed) NONE SEEN Normal NONE SEEN [facility] Comment on above: Performed By: #### C VDAGS #### [facility] [address] [place] [address] Dr. Ashlie Hills Epithelial cells LM Ql (Urine sed) MODERATE Abnormal NONE SEEN /RARE [facility] Comment on above: Performed By: #### C VDAGS #### [facility] [address] [place] [address] Dr. Ashlie Hills Glucose Ql (U) Negative Normal NEGATIVE [facility] Comment on above: Performed By: #### C VDAGS #### [facility] [address] [place] [address] Dr. Ashlie Hills Hemoglobin Ql (U) TRACE-INTACT Abnormal NEGATIVE [facility] Comment on above: Performed By: #### C VDAGS #### [facility] [address] [place] [address] Dr. Ashlie Hills Ketones Ql (U) Negative Normal NEGATIVE [facility] Comment on above: Performed By: #### C VDAGS #### [facility] [address] [place] [address] Dr. Ashlie Hills LEUKOCYTES Negative Normal NEGATIVE [facility] Comment on above: Performed By: #### C VDAGS #### [facility] [address] [place] [address] Dr. Ashlie Hills MUCOUS NONE SEEN Normal NONE SEEN [facility] Comment on above: Performed By: #### C VDAGS #### [facility] [place] [facility] [address] [place] [address] Dr. Ashlie Hills Nitrite Ql (U) Negative Normal NEGATIVE [facility] Comment on above: Performed By: #### C VDAGS #### [facility] [place] [facility] [address] [place] [address] Dr. Ashlie Hills pH (U) 5.0 [pH] Normal 5-[address] [facility] Comment on above: Performed By: #### C VDAGS #### [facility] [place] [facility] [address] [place] [address] Dr. Ashlie Hills RBC 0-2 Normal 0-[address] [facility] Comment on above: Performed By: #### C VDAGS #### [facility] [place] [facility] [address] [place] [address] Dr. Ashlie Hills SPEC GRAVITY 1.030 Abnormal 1.005-<=1.025 [facility] Comment on above: Performed By: #### C VDAGS #### [facility] [place] [facility] [address] [place] [address] Dr. Ashlie Hills UA PROTEIN 100 mg/dl Abnormal NEGATIVE/ TRACE [facility] [place] [facility] Comment on above: Performed By: #### C VDAGS #### [facility] [place] [facility] [address] [place] [address] Dr. Ashlie Hills Urobilinogen Qn (U) 0.2 {Little'U}/dL Normal 0.2 - 1. [address] [facility] Comment on above: Performed By: #### C VDAGS #### [facility] [place] [facility] [address] [place] [address] Dr. Ashlie Hills WBC NONE SEEN Normal NONE SEEN [facility] [place] [facility] Comment on above: Performed By: #### C VDAGS #### [facility] [place] [facility] [address] [place] [address] Dr. Ashlie Hills CBC AUTO DIFFon 11-22-2022 BASO # 0.0 103/ul Normal 0.0-0.[address] [facility] Comment on above: Performed By: #### C BC #### [facility] [place] [facility] [address] [place] [address] Dr. Ashlie Hills Basophils/100 WBC (Bld) 0.3 % Normal 0.2-2.[address] [facility] Comment on above: Performed By: #### C BC #### [facility] [place] [facility] [address] [place] [address] Dr. Ashlie Hills EO # 0.4 103/ul Normal 0.0-0.[address] [facility] Comment on above: Performed By: #### C BC #### [facility] [place] [facility] [address] [place] [address] Dr. Ashlie Hills Eosinophils/100 WBC (Bld) 3.0 % Normal 0.9-7.[address] [facility] Comment on above: Performed By: #### C BC #### [facility] [place] [facility] [address] [place] [address] Dr. Ashlie Hills Erythrocyte distribution width (RBC) [Ratio] 15.3 % Critically high 11.0-15.[address] [facility] Comment on above: Performed By: #### C BC #### [facility] [place] [facility] [address] [place] [address] Dr. Ashlie Hills Hematocrit (Bld) [Volume fraction] 52.4 % Critically high 36.0-48.[address] [facility] Comment on above: Performed By: #### C BC #### [facility] [place] [facility] [address] [place] [address] Dr. Ashlie Hills Hemoglobin (Bld) [Mass/Vol] 16.8 g/dL Critically high 12.0-16.[address] [facility] Comment on above: Performed By: #### C BC #### [facility] [place] [facility] [address] [place] [address] Dr. Ashlie Hills IG # 0.04 10e3/ul Critically high 0.00-0.03 [facility] Comment on above: Performed By: #### C BC #### [facility] [place] [facility] [address] [place] [address] Dr. Ashlie Hills IG % 0.3 % Normal 0.0-0.[address] [facility] Comment on above: Performed By: #### C BC #### [facility] [place] [facility] [address] [place] [address] Dr. Ashlie Hills LYMPH # 4.5 103/ul Critically high 1.2-3.8 [facility] Comment on above: Performed By: #### C BC #### [facility] [place] [facility] [address] [place] [address] Dr. Ashlie Hills Lymphocytes/100 WBC (Bld) 33.2 % Normal 20.5-60.[address] [facility] Comment on above: Performed By: #### C BC #### [facility] [place] [facility] [address] [place] [address] Dr. Ashlie Hills MANUAL DIFF REQ NO Normal [facility] Comment on above: Performed By: #### C BC #### [facility] [place] [facility] [address] [place] [address] Dr. Ashlie Hills MCH (RBC) [Entitic mass] 28.0 pg Normal 26.7-34.[address] [facility] Comment on above: Performed By: #### C BC #### [facility] [place] [facility] [address] [place] [address] Dr. Ashlie Hills MCHC (RBC) [Mass/Vol] 32.1 g/dL Normal 29.9-35.[address] [facility] Comment on above: Performed By: #### C BC #### [facility] [place] [facility] [address] [place] [address] Dr. Ashlie Hills MCV (RBC) [Entitic vol] 87.3 fL Normal 81.0-99.[address] [facility] Comment on above: Performed By: #### C BC #### [facility] [place] [facility] [address] [place] [address] Dr. Ashlie Hills MONO # 0.8 103/ul Normal 0.3-0.[address] [facility] Comment on above: Performed By: #### C BC #### [facility] [place] [facility] [address] [place] [address] Dr. Ashlie Hills Monocytes/100 WBC (Bld) 5.7 % Normal 1.7-12.[address] [facility] Comment on above: Performed By: #### C BC #### [facility] [place] [facility] [address] [address] [address] Ashlie Hills NEUT # 7.8 103/ul Critically high 1.4-6.5 [facility] Comment on above: Performed By: #### C BC #### [facility] [place] [facility] [address] [place] [address] Dr. Ashlie Hills Neutrophils/100 WBC (Bld) 57.5 % Normal 43.0-75.[address] [facility] Comment on above: Performed By: #### C BC #### [facility] [place] [facility] [address] [place] [address] Dr. Ashlie Hills Platelet mean volume (Bld) [Entitic vol] 12.0 fL Normal 9.5-13.[address] [facility] Comment on above: Performed By: #### C BC #### [facility] [place] [facility] [address] [place] [address] Dr. Ashlie Hills PLT 152 103/ul Normal 150-[address] [facility] Comment on above: Performed By: #### C BC #### [facility] [place] [facility] [address] [place] [address] Dr. Ashlie Hills RBC 6.00 106/ul Critically high 4.20-5.40 [facility] Comment on above: Performed By: #### C BC #### [facility] [place] [facility] [address] [place] [address] Dr. Ashlie Hills WBC 13.6 103/ul Critically high 4.0-11.0 [facility] Comment on above: Performed By: #### C BC #### [facility] [place] [facility] [address] [place] [address] Dr. Ashlie Hills LIPID PROFILEon 11-22-2022 CHOL-HDL RATIO NORM SEE BELOW Normal [facility] Comment on above: Result Comment: 3.3 - 4.4 LOW RISK 4.4 - 7.1 AVERAGE RISK 7.1 - 11.0 MODERATE RISK >11.0 HIGH RISK Performed By: #### C BC #### [facility] [place] [facility] [address] [address] [address] Ashlie Hills Cholesterol [Mass/Vol] 139 mg/dL Normal <=[address] [facility] Comment on above: Performed By: #### C BC #### [facility] [place] [facility] [address] [address] [address] Ashlie Hills Cholesterol in HDL [Mass/Vol] 35 mg/dL Critically low 40-[address] [facility] Comment on above: Performed By: #### C BC #### [facility] [place] [facility] [address] [address] [address] Ashlie Hills Cholesterol in LDL [Mass/Vol] 67.4 mg/dL Normal [facility] Comment on above: Performed By: #### C BC #### [facility] [place] [facility] [address] [address] [address] Ashlie Hills Cholesterol.total/Ch olesterol in HDL [Mass ratio] 4.0 {ratio} Normal [facility] Comment on above: Performed By: #### C BC #### [facility] [place] [facility] [address] [place] [address] Dr. Ashlie Hills HDL NORMAL > or = 60 mg/dl - LOW CARDIOVASCULAR RISK <40 mg/dl - HIGH CARDIOVASCULAR RISK Normal [facility] Comment on above: Performed By: #### C BC #### [facility] [place] [facility] [address] [address] [address] Ashlie Hills LDL CALC NORMAL SEE BELOW Normal [facility] Comment on above: Result Comment: <100 mg/dl OPTIMAL 100 - 129 mg/dl NEAR OR ABOVE OPTIMAL 130 - 159 mg/dl BORDERLINE HIGH 160 - 189 mg/dl HIGH >190 mg/dl VERY HIGH Performed By: #### C BC #### [facility] [place] [facility] [address] [place] [address] Dr. Ashlie Hills Triglyceride [Mass/Vol] 183 mg/dL Critically high <=[address] [facility] Comment on above: Performed By: #### C BC #### [facility] [place] [facility] [address] [place], [place] [address] Dr. Ashlie Hills VLDL CALC 36.6 mg/dL Normal [facility] Comment on above: Performed By: #### C BC #### [facility] [place] [facility] [address] [place], [place] [address] Dr. 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 LOCATION: [facility] [place] [facility] BREAST COMPOSITION: Almost entirely fatty. FINDINGS: [...] Ivan M.D. on 11/22/2022 at 12:[address] [facility] PROF 14(COMP METB)on 023 Albumin [Mass/Vol] 3.0 g/dL Critically low 3.4-5.0 [facility] [place] [facility] Comment on above: Performed By: #### C BC #### [facility] [place] [facility] [address] [address] [address] Ashlie Hills Albumin/Globulin [Mass ratio] 0.6 {ratio} Normal [facility] Comment on above: Performed By: #### C BC #### [facility] [place] [facility] [address] [address] [address] Ashlie Hills ALP [Catalytic activity/Vol] 68 U/L Normal 46-[address] [facility] Comment on above: Performed By: #### C BC #### [facility] [place] [facility] [address] [address] [address] Ashlie Hills ALT [Catalytic activity/Vol] 14 U/L Normal 14-[address] [facility] Comment on above: Performed By: #### C BC #### [facility] [place] [facility] [address] [place] [address] Dr. Ashlie Hills Anion gap [Moles/Vol] 12.1 mmol/L Normal [facility] Comment on above: Performed By: #### C BC #### [facility] [place] [facility] [address] [place] [address] Dr. Ashlie Hills AST [Catalytic activity/Vol] 9 U/L Critically low 15-[address] [facility] Comment on above: Performed By: #### C BC #### [facility] [place] [facility] [address] [place] [address] Dr. Ashlie Hills Bilirubin [Mass/Vol] 0.4 mg/dL Normal 0.2-1.[address] [facility] Comment on above: Performed By: #### C BC #### [facility] [place] [facility] [address] [place] [address] Dr. Ashlie Hills Calcium [Mass/Vol] 9.0 mg/dL Normal 8.5-10.1 [facility] Comment on above: Performed By: #### C BC #### [facility] [place] [facility] [address] [place] [address] Dr. Ashlie Hills Chloride [Moles/Vol] 105 mmol/L Normal 98-[address] [facility] Comment on above: Performed By: #### C BC #### [facility] [place] [facility] [address] [place] [address] Dr. Ashlie Hills CO2 [Moles/Vol] 30.7 mmol/L Normal 21.0-32.0 [facility] Comment on above: Performed By: #### C BC #### [facility] [place] [facility] [address] [place] [address] Dr. Ashlie Hills Creatinine [Mass/Vol] 0.77 mg/dL Normal 0.55-1.[address] [facility] Comment on above: Performed By: #### C BC #### [facility] [place] [facility] [address] [place] [address] Dr. Ashlie Hills EGFR-AF ARGENTINE >60 Normal >=60 [facility] Comment on above: Performed By: #### C BC #### [facility] [place] [facility] [address] [place] [address] Dr. Ashlie Hills EGFR-NON AF ARGENTINE >60 Normal >=[address] [facility] Comment on above: Performed By: #### C BC #### [facility] [place] [facility] [address] [place] [address] Dr. Ashlie Hills Globulin (S) [Mass/Vol] 4.8 g/dL Normal [facility] Comment on above: Performed By: #### C BC #### [facility] [place] [facility] [address] [place] [address] Dr. Ashlie Hills Glucose [Mass/Vol] 162 mg/dL Critically high 74-106 [facility] Comment on above: Performed By: #### C BC #### [facility] [place] [facility] [address] [place] [address] Dr. Ashlie Hills Potassium [Moles/Vol] 3.8 mmol/L Normal 3.5-5.[address] [facility] Comment on above: Performed By: #### C BC #### [facility] [place] [facility] [address] [place] [address] Dr. Ashlie Hills Protein [Mass/Vol] 7.8 g/dL Normal 6.4-8.2 [facility] Comment on above: Performed By: #### C BC #### [facility] [place] [facility] [address] [place] [address] Dr. Ashlie Hills Sodium [Moles/Vol] 144 mmol/L Normal 136-145 [facility] Comment on above: Performed By: #### C BC #### [facility] [place] [facility] [address] [place], [place] [address] Dr. Ashlie Hills Urea nitrogen [Mass/Vol] 24.0 mg/dL Critically high 7.0-18.[address] [facility] Comment on above: Performed By: #### C BC #### [facility] [place] [facility] [address] [place], [place] [address] Dr. Ashlie Hills Urea nitrogen/Creatinine [Mass ratio] 31.2 mg/mg Normal [facility] Comment on above: Performed By: #### C BC #### [facility] [place] [facility] [address] [address] [address] Ashlie Hills Patient Educationon 11-16-19 23 [...] ? 8 oz (237 mL) of milk, calcium-fortifiednon -dairy milk, and calcium-fortifiedfru it juice. Calcium-fortified means that calcium has been [...] Spinach (cooked), rhubarb, beets, sweet potatoes, and [place] chard. ? Peanuts. ? Potato chips, maltese fries, and baked potatoes with skin on. ? Nuts and nut products. ? Chocolate. ? If you regularly take a diuretic medicine, make sure to eat at least 1 or 2 servings of fruits or vegetables that are high in potassium each day. These include: ? Avocado. ? Banana. ? [place], prune, carrot, or tomato juice. ? Baked [...] fish oil, or vitamin B6. ? Take wgtg-nod-qmyanxy and prescription medicines only as told by your health care provider. These include supplements. What foods should I limit? Limit your in (more content not included)... [facility] Reminderson 11-15-2022 Reminders - From: Maria Elena Negrete To: SHEA Vega; Sent: 11/15/2022 14:23:36 EDT Show up: 04/17/2024 14:23:00 EDT Subject: Schedule CT AP w betsy Due Date/Time: 05/18/2024 13:23:00 EST Please schedule [address] AP w con for adrenal mass. [facility] Urology Office/Clinic Noteon 11-15-2022 Urology Office/Clinic [...] Contact Information SILVIA HOWELL, GAVIOTA Webb, URL [address] [place] [address] Additional Instructions: [address] AP w con Patient Education Dietary Guidelines to Help Prevent Kidney Stones Documentation recorded by the familia Negrete accurately reflects the services(s) I performed [...] Operative procedure on foot or toes. Medications acetaminophen-hydroc odone 325 mg-5 mg oral tablet, Unable to [...] (1/2 pack (more content not included)... [facility] Comment on above: Result Comment: Elec tronically Signed By: GAVIOTA VEGA PA-C\.br\Date and Time Signed: 11/15/22 14:32 EDT\.br\Electronically Co-Signed By: Maria Elena Negrete\.br\Date and Time Co-Signed: 11/15/22 14:22 EDT\.br\Electronically Co-Signed By: Maria Elena Negrete\.br\Date and Time Co-Signed: 11/15/22 14:22 EDT CBC AUTO DIFFon 10-05-2022 BASO # 0.1 103/ul Normal 0.0-0.[address] [facility] Comment on above: Performed By: #### C BC #### [facility] [place] [facility] [address] [address] [address] Ashlie Hills Basophils/100 WBC (Bld) 0.6 % Normal 0.2-2.[address] [facility] Comment on above: Performed By: #### C BC #### [facility] [place] [facility] [address] [address] [address] Ashlie Hills EO # 0.3 103/ul Normal 0.0-0.[address] [facility] Comment on above: Performed By: #### C BC #### [facility] [place] [facility] [address] [place] [address] Dr. Ashlie Hills Eosinophils/100 WBC (Bld) 2.1 % Normal 0.9-7.[address] [facility] Comment on above: Performed By: #### C BC #### [facility] [place] [facility] [address] [place] [address] Dr. Ashlie Hills Erythrocyte distribution width (RBC) [Ratio] 15.9 % Critically high 11.0-15.[address] [facility] Comment on above: Performed By: #### C BC #### [facility] [place] [facility] [address] [place] [address] Dr. Ashlie Hills Hematocrit (Bld) [Volume fraction] 51.8 % Critically high 36.0-48.[address] [facility] Comment on above: Performed By: #### C BC #### [facility] [place] [facility] [address] [place] [address] Dr. Ashlie Hills Hemoglobin (Bld) [Mass/Vol] 16.6 g/dL Critically high 12.0-16.[address] [facility] Comment on above: Performed By: #### C BC #### [facility] [place] [facility] [address] [place] [address] Dr. Ashlie Hills IG # 0.03 10e3/ul Normal 0.00-0.[address] [facility] Comment on above: Performed By: #### C BC #### [facility] [place] [facility] [address] [place] [address] Dr. Ashlie Hills IG % 0.2 % Normal 0.0-0.5 [facility] [place] [facility] Comment on above: Performed By: #### C BC #### [facility] [place] [facility] [address] [place] [address] Dr. Ashlie Hills LYMPH # 3.9 103/ul Critically high 1.2-3.8 [facility] Comment on above: Performed By: #### C BC #### [facility] [place] [facility] [address] [place] [address] Dr. Ashlie Hills Lymphocytes/100 WBC (Bld) 31.7 % Normal 20.5-60.[address] [facility] Comment on above: Performed By: #### C BC #### [facility] [place] [facility] [address] [place] [address] Dr. Ashlie Hills MANUAL DIFF REQ NO Normal [facility] Comment on above: Performed By: #### C BC #### [facility] [place] [facility] [address] [place] [address] Dr. Ashlie Hills MCH (RBC) [Entitic mass] 27.9 pg Normal 26.7-34.[address] [facility] Comment on above: Performed By: #### C BC #### [facility] [place] [facility] [address] [place] [address] Dr. Ashlie Hills MCHC (RBC) [Mass/Vol] 32.0 g/dL Normal 29.9-35.[address] [facility] Comment on above: Performed By: #### C BC #### [facility] [place] [facility] [address] [place] [address] Dr. Ashlie Hills MCV (RBC) [Entitic vol] 87.1 fL Normal 81.0-99.[address] [facility] Comment on above: Performed By: #### C BC #### [facility] [place] [facility] [address] [place] [address] Dr. Ashlie Hills MONO # 0.7 103/ul Normal 0.3-0.[address] [facility] Comment on above: Performed By: #### C BC #### [facility] [place] [facility] [address] [place] [address] Dr. Ashlie Hills Monocytes/100 WBC (Bld) 5.8 % Normal 1.7-12.0 [facility] [place] [facility] Comment on above: Performed By: #### C BC #### [facility] [place] [facility] [address] [place] [address] Dr. Ashlie Hills NEUT # 7.3 103/ul Critically high 1.4-6.5 [facility] Comment on above: Performed By: #### C BC #### [facility] [place] [facility] [address] [place] [address] Dr. Ashlie Hills Neutrophils/100 WBC (Bld) 59.6 % Normal 43.0-75.0 [facility] [place] [facility] Comment on above: Performed By: #### C BC #### [facility] [place] [facility] [address] [place], [place] [address] Dr. Ashlie Hills Platelet mean volume (Bld) [Entitic vol] 11.7 fL Normal 9.5-13.5 [facility] [place] [facility] Comment on above: Performed By: #### C BC #### [facility] [place] [facility] [address] [place], [place] [address] Dr. Ashlie Hills PLT 117 103/ul Critically low 150-450 [facility] Comment on above: Performed By: #### C BC #### [facility] [place] [facility] [address] [address] [address] Ashlie Hills RBC 5.95 106/ul Critically high 4.20-5.40 [facility] Comment on above: Performed By: #### C BC #### [facility] [place] [facility] [address] [address] [address] Ashlie Hills WBC 12.3 103/ul Critically high 4.0-11.0 [facility] Comment on above: Performed By: #### C BC #### [facility] [place] [facility] [address] [address] [address] ABD/PELV W CONon 10-06-[address] ABD/PELV W CON EXAM: CT ABD/PELV [...] RICCO PICKARD Date: 2022-10-05 13:13 Normal [facility] [place] [facility] URINE PROFILEon 3 Bilirubin Ql (U) Negative Normal NEGATIVE [facility] Comment on above: Performed By: #### P OCGLUC #### [facility] [place] [facility] [address] [address] [address] Ashlie Hills Clarity (U) CLEAR Normal CLEAR [facility] Comment on above: Performed By: #### P OCGLUC #### [facility] [place] [facility] [address] [address] [address] Ashlie Hills Color (U) YELLOW Normal YELLOW [facility] Comment on above: Performed By: #### P OCGLUC #### [facility] [place] [facility] [address] [place] [address] Dr. Ashlie HOBBS A micrscopic examination will be performed if indicated. Normal [facility] [place] [facility] Comment on above: Performed By: #### P OCGLUC #### [facility] [place] [facility] [address] [address] [address] Ashlie Hills Glucose Ql (U) Negative Normal NEGATIVE [facility] Comment on above: Performed By: #### P OCGLUC #### [facility] [place] [facility] [address] [address] [address] Ashlie Hills Hemoglobin Ql (U) Negative Normal NEGATIVE [facility] Comment on above: Performed By: #### P OCGLUC #### [facility] [place] [facility] [address] [address] [address] Ashlie Hills Ketones Ql (U) Negative Normal NEGATIVE [facility] Comment on above: Performed By: #### P OCGLUC #### [facility] [place] [facility] [address] [address] [address] Ashlie Hills LEUKOCYTES Negative Normal NEGATIVE [facility] Comment on above: Performed By: #### P OCGLUC #### [facility] [place] [facility] [address] [address] [address] Ashlie Hills Nitrite Ql (U) Negative Normal NEGATIVE [facility] Comment on above: Performed By: #### P OCGLUC #### [facility] [place] [facility] [address] [address] [address] Ashlie Hills pH (U) 6.0 [pH] Normal 5-[address] [facility] Comment on above: Performed By: #### P OCGLUC #### [facility] [place] [facility] [address] [address] [address] Ashlie Hills Protein (U) [Mass/Vol] 100 mg/dL Abnormal NEGATIVE/ TRACE [facility] Comment on above: Performed By: #### P OCGLUC #### [facility] [place] [facility] [address] [address] [address] Ashlie Hills SPEC GRAVITY 1.010 Normal 1.005-<=1.025 [facility] Comment on above: Performed By: #### P OCGLUC #### [facility] [place] [facility] [address] [place] [address] Dr. Ashlie Hills UR MICRO IND INDICATED Normal [facility] Comment on above: Performed By: #### P OCGLUC #### [facility] [place] [facility] [address] [place] [address] Dr. Ashlie Hills Urobilinogen Qn (U) 1.0 {Little'U}/dL Normal 0.2 - 1. [address] [facility] Comment on above: Performed By: #### P OCGLUC #### [facility] [place] [facility] [address] [place] [address] Dr. Ashlie Hills LIPASEon 10-05-2022 Lipase [Catalytic activity/Vol] 1771.0 U/L Critically high 73.0-393.0 [facility] [facility] Comment on above: Performed By: #### C BC #### [facility] [address] [address] [address] Ashlie Hills PREG HCG QUALon 10-05-2022 , QUAL Negative Normal NEGATIVE [facility] Comment on above: Performed By: #### P OCGLUC #### [facility] [address] [place] [address] Dr. Ashlie Hills PROF 14(COMP METB)on 023 Albumin [Mass/Vol] 3.2 g/dL Critically low 3.4-5.0 [facility] Comment on above: Performed By: #### C BC #### [facility] [address] [place] [address] Dr. Ashlie Hills Albumin/Globulin [Mass ratio] 0.7 {ratio} Normal [facility] Comment on above: Performed By: #### C BC #### [facility] [address] [address] [address] Ashlie Hills ALP [Catalytic activity/Vol] 70 U/L Normal 46-[address] [facility] Comment on above: Performed By: #### C BC #### [facility] [address] [address] [address] Ashlie Hills ALT [Catalytic activity/Vol] 11 U/L Critically low 14-[address] [facility] Comment on above: Performed By: #### C BC #### [facility] [address] [place] [address] Dr. Ashlie Hills Anion gap [Moles/Vol] 10.3 mmol/L Normal [facility] Comment on above: Performed By: #### C BC #### [facility] [address] [place] [address] Dr. Ashlie Hills AST [Catalytic activity/Vol] 11 U/L Critically low 15-[address] [facility] Comment on above: Performed By: #### C BC #### [facility] [address] [place] [address] Dr. Ashlie Hills Bilirubin [Mass/Vol] 0.9 mg/dL Normal 0.2-1.[address] [facility] Comment on above: Performed By: #### C BC #### [facility] [address] [place] [address] Dr. Ashlie Hills Calcium [Mass/Vol] 9.3 mg/dL Normal 8.5-10.1 [facility] Comment on above: Performed By: #### C BC #### [facility] [address] [address] [address] Ashlie Hills Chloride [Moles/Vol] 105 mmol/L Normal 98-[address] [facility] Comment on above: Performed By: #### C BC #### [facility] [address] [address] [address] Ashlie Hills CO2 [Moles/Vol] 30.6 mmol/L Normal 21.0-32.0 [facility] Comment on above: Performed By: #### C BC #### [facility] [address] [address] [address] Ashlie Hills Creatinine [Mass/Vol] 0.62 mg/dL Normal 0.55-1.02 [facility] Comment on above: Performed By: #### C BC #### [facility] [address] [place] [address] Dr. Ashlie Hills EGFR-AF ARGENTINE >60 Normal >=60 [facility] Comment on above: Performed By: #### C BC #### [facility] [address] [place] [address] Dr. Ashlie Hills EGFR-NON AF ARGENTINE >60 Normal >=60 [facility] Comment on above: Performed By: #### C BC #### [facility] [address] [place] [address] Dr. Ashlie Hills Globulin (S) [Mass/Vol] 4.6 g/dL Normal [facility] Comment on above: Performed By: #### C BC #### [facility] [address] [place] [address] Dr. Ashlie Hills Glucose [Mass/Vol] 85 mg/dL Normal 74-106 [facility] Comment on above: Performed By: #### C BC #### [facility] [address] [place] [address] Dr. Ashlie Hills Potassium [Moles/Vol] 3.9 mmol/L Normal 3.5-5.1 [facility] Comment on above: Performed By: #### C BC #### [facility] [address] [place] [address] Dr. Ashlie Hills Protein [Mass/Vol] 7.8 g/dL Normal 6.4-8.2 [facility] Comment on above: Performed By: #### C BC #### [facility] [address] [place] [address] Dr. Ashlie Hills Sodium [Moles/Vol] 142 mmol/L Normal 136-145 [facility] Comment on above: Performed By: #### C BC #### [facility] [address] [place] [address] Dr. Ashlie Hills Urea nitrogen [Mass/Vol] 12.0 mg/dL Normal 7.0-18.[address] [facility] Comment on above: Performed By: #### C BC #### [facility] [address] [place] [address] Dr. Ashlie Hills Urea nitrogen/Creatinine [Mass ratio] 19.4 mg/mg Normal [facility] Comment on above: Performed By: #### C BC #### [facility] [address] [place] [address] Dr. Ashlie Hills URINE MICROSCOPIC ONLYon BACTERIA TRACE Abnormal NONE SEEN [facility] Comment on above: Performed By: #### P OCGLUC #### [facility] [address] [place] [address] Dr. Ashlie Hills Bacteria identified Cx Nom (U) NOT INDICATED Normal [facility] Comment on above: Performed By: #### P OCGLUC #### [facility] [address] [place] [address] Dr. Ashlie Hills CAST NONE SEEN Normal NONE SEEN [facility] Comment on above: Performed By: #### P OCGLUC #### [facility] [address] [place] [address] Dr. Ashlie Hills Crystals LM Nom (Urine sed) NONE SEEN Normal NONE SEEN [facility] Comment on above: Performed By: #### P OCGLUC #### [facility] [address] [place] [address] Dr. Ashlie Hills Epithelial cells LM Ql (Urine sed) MODERATE Abnormal NONE SEEN /RARE [facility] Comment on above: Performed By: #### P OCGLUC #### [facility] [address] [place] [address] Dr. Ashlie Hills MUCOUS NONE SEEN Normal NONE SEEN [facility] Comment on above: Performed By: #### P OCGLUC #### [facility] [address] [place] [address] Dr. Ashlie Hills RBC 0-2 Normal 0-2 [facility] Comment on above: Performed By: #### P OCGLUC #### [facility] [address] [place] [address] Dr. Ashlie Hills WBC 0-2 Abnormal NONE SEEN [facility] Comment on above: Performed By: #### P OCGLUC #### [facility] [address] [place] [address] Dr. Ashlie Hills Covid-19 PCR ([facility])on 09-06 SARS-CoV-2 (COVID-19) RNA MADDY+probe Ql (Unsp spec) Detected Abnormal NOT DETECTED [facility] Comment on above: Result Comment: This test is not yet approved or cleared by the [place] FDA. When there are no FDA-approved or cleared tests available, and other criteria are met, FDA can make tests available under an emergency access mechanism called an Emergency Use Authorization (EUA). The EUA for this test is supported by the [place] of Health and Human Service's declaration that [...] used). Performed By: #### C VDAGS #### [facility] [address] [place] [address] Dr. Ashlie Hills INFLUENZA A AND B AGon 09-21 INFLUANEGH SEE BELOW Normal [facility] Comment on above: Result Comment: Nega tive for Flu A protein angiten. Infection due to Flu A cannot be ruled out. Flu A angiten in the sample may be below the detection limit of the test. Performed By: #### I NFLUAB #### [facility] [address] [place] [address] Dr. Ashlie Hills INFLUBNEGH SEE BELOW Normal [facility] Comment on above: Result Comment: Nega tive for Flu B protein antigen. Infection due to Flu B cannot be ruled out. Flu B antigen in the sample may be below the detection limit of the test. Performed By: #### I NFLUAB #### [facility] [address] [place] [address] Dr. Ashlie Hills INFLUENZA A AG Negative Normal NEGATIVE SEE COMMENT [facility] Comment on above: Performed By: #### I NFLUAB #### [facility] [address] [address] [address] Ashlie Hills INFLUENZA B AG Negative Normal NEGATIVE SEE COMMENT [facility] Comment on above: Performed By: #### I NFLUAB #### [facility] [address] [address] [address] Ashlie Hills RAD - CT Reporton 07-31-2022 RAD - CT Report [id number] #[id number]:[address] [facility] [address] ABD/PELV W CONon 07-27-19 CT ABD/PELV W CON INDICATION: Disorder of adrenal gland EXAMINATION: CT ABDOMEN AND PELVIS WITH CONTRAST TECHNIQUE: Helically acquired images were obtained of the abdomen and pelvis following intravenous administration of iodinated contrast. A radiation dose optimization technique was used for this scan. ENTERIC CONTRAST: None. COMPARISON: 12/24/2021 ____ FINDINGS: LOWER CHEST: The visualized portions of [...] dating back to at least 10/21/2018, unchanged. https://www.ncbi.nlm .nih.gov/pmc/article s/[id number]/ Electronically authenticated by: COLLIN HUERTAS Date: 2022-07-27 14:[address] [facility] Reminderson 07-27-2022 Reminders - From: Raquel Tidwell To: EU - Recalls Vargas; Sent: 02/06/2022 11:45:57 EDT Show up: 07/09/2022 11:45:00 EST Subject: Ct scan Due Date/Time: 07/31/2022 11:45:00 EST Reminder/Recall Pt needs Ct scan abd/pelvis w contrast ATTN Adrenals scheduled prior to Aug 2022 appt. She wants [facility] order faxed to [facility] Pt scheduled for 07/27/2022 will monitor [facility] for results over the next few days [facility] Physician Orderon 07-19-2022 Physician Order [id number] #[id number]:127 Normal [facility] CREATININEon 07-18-2022 Creatinine [Mass/Vol] 0.81 mg/dL Normal 0.55-1.[address] [facility] Comment on above: Performed By: #### C BC #### [facility] [address] [place] [address] Dr. Ashlie Hills EGFR-AF ARGENTINE >60 Normal >=60 [facility] Comment on above: Performed By: #### C BC #### [facility] [address] [place] [address] Dr. Ashlie Hills EGFR-NON AF ARGENTINE >60 Normal >=[address] [facility] Comment on above: Performed By: #### C BC #### [facility] [address] [place] [address] LOW EXT W [...] PATRICIA IVAN Date: 2022-07-18 14:58 Normal [facility] XR KNEE LT 1_2 Von 3 XR [...] HATTIE BAUTISTA Date: 2022-07-18 12:00 Normal [facility]on 06-09 SARS-CoV-2 (COVID-19) RNA MADDY+probe Ql (Unsp spec) Not detected Normal NOT DETECTED [facility] Comment on above: Result Comment: This test is not yet approved or cleared by the [place] FDA. When there are no FDA-approved or cleared tests available, and other criteria are met, FDA can make tests available under an emergency access mechanism called an Emergency Use Authorization (EUA). The EUA for this test is supported by the [employer] of Health and Human Service's (HHS's) declaration [...] SARS-CoV-2. Performed By: #### C BC #### [facility] [address] [place] [address] Dr. Ashlie Hills INFLUENZA A AND B AGon 07-06 INFLUANE SEE BELOW Normal [facility] Comment on above: Result Comment: Nega tive for Flu A protein angiten. Infection due to Flu A cannot be ruled out. Flu A angiten in the sample may be below the detection limit of the test. Performed By: #### C BC #### [facility] [address] [place] [address] Dr. Ashlie Hills INFLUBNEG SEE BELOW Normal [facility] Comment on above: Result Comment: Nega tive for Flu B protein antigen. Infection due to Flu B cannot be ruled out. Flu B antigen in the sample may be below the detection limit of the test. Performed By: #### C BC #### [facility] [address] [place] [address] Dr. Ashlie Hills INFLUENZA A AG Negative Normal NEGATIVE SEE COMMENT [facility] Comment on above: Performed By: #### C BC #### [facility] [address] [place] [address] Dr. Ashlie Hills INFLUENZA B AG Negative Normal NEGATIVE SEE COMMENT [facility] Comment on above: Performed By: #### C BC #### [facility] [address] [place] [address] Dr. Ashlie Hills POINT OF CARE GLUCOSEon 04-08 Glucose [Mass/Vol] 108 mg/dL Critically high 74-106 [facility] Comment on above: Performed By: #### C BC #### [facility] [address] [place] [address] Dr. Ashlie Hills RAGHU by IFAon 03-07-2022 Antinuclear Antibodies, IFA Negative Normal [facility] Comment on above: Result Comment: Nega tive <1:80 Borderline 1:80 Positive >1:80 ICAP nomenclature: AC-0 For more information about Hep-2 cell patterns use ANApatterns.org, the official website for the International Consensus on Antinuclear Antibody (RAGHU) Patterns (ICAP). Performed By: #### A NAIFA #### [facility] [address] [place] [address] Dr. Ashlie Hills IMMUNOFIXATION (TREVON), URINEo n 03-07-2022 TREVON Interpretation:U Comment Normal [facility] Comment on above: Result Comment: No m onoclonality detected. Performed By: #### C BC #### [facility] [address] [place] [address] Dr. Ashlie Hills IMMUNOFIXATION(TREVON),PROTEIN ELEC(PE),FREon 03-07-2022 Albumin [Mass/Vol] 3.0 g/dL Normal 2.9-4.4 [facility] Comment on above: Performed By: #### I NFLUAB #### [facility] [address] [place] [address] Dr. Ashlie Hills Albumin/Globulin [Mass ratio] 0.8 {ratio} Normal 0.7-1.[address] [facility] Comment on above: Performed By: #### I NFLUAB #### [facility] [address] [place] [address] Dr. Ashlie Hills Cphfa-5-Ekbphisa 0.3 g/dL Normal 0.0-0.4 [facility] Comment on above: Performed By: #### I NFLUAB #### [facility] [address] [place] [address] Dr. Ashlie Hills Sjzzx-7-Adltnita 1.0 g/dL Normal 0.4-1.0 [facility] Comment on above: Performed By: #### I NFLUAB #### [facility] [address] [place] [address] Dr. Ashlie Hills Beta Globulin 1.8 g/dL Critically high 0.7-1.3 [facility] Comment on above: Performed By: #### I NFLUAB #### [facility] [address] [place] [address] Dr. Ashlie Hills Free [place] Lt Chains,S 45.2 mg/L Critically high 3.3-19.4 [facility] Comment on above: Performed By: #### I NFLUAB #### [facility] [address] [address] [address] Ahslie Hills Free Lambda Lt Chains,S 40.3 mg/L Critically high 5.7-26.[address] [facility] Comment on above: Performed By: #### I NFLUAB #### [facility] [address] [address] [address] Ashlie Hills Gamma Globulin 0.8 g/dL Normal 0.4-1.8 [facility] Comment on above: Performed By: #### I NFLUAB #### [facility] [address] [address] [address] Ashlie Hills Globulin (S) [Mass/Vol] 3.9 g/dL Normal 2.2-3.[address] [facility] Comment on above: Performed By: #### I NFLUAB #### [facility] [address] [place] [address] Dr. Ashlie Hills Immunofixation Result, Serum Comment Normal [facility] Comment on above: Result Comment: No m onoclonality detected. Performed By: #### I NFLUAB #### [facility] [address] [address] [address] Ashlie Hills Immunoglobulin A, Qn, Serum 776 mg/dL Critically high 87-[address] [facility] Comment on above: Performed By: #### I NFLUAB #### [facility] [address] [address] [address] Ashlie Hills Immunoglobulin G, Qn, Serum 955 mg/dL Normal 586-[address] [facility] Comment on above: Performed By: #### I NFLUAB #### [facility] [address] [address] [address] Ashlie Hills Immunoglobulin M, Qn, Serum 39 mg/dL Normal 26-217 [facility] Comment on above: Performed By: #### I NFLUAB #### [facility] [address] [address] [address] Ashlie Hills [place]/Lambda Ratio, S 1.12 Normal 0.26-1.[address] [facility] Comment on above: Performed By: #### I NFLUAB #### [facility] [address] [place] [address] Dr. Ashlie Hills M-Bright Not Observed Normal Not Observed [facility] Comment on above: Performed By: #### I NFLUAB #### [facility] [address] [place] [address] Dr. Ashlie Hills PDF . Normal [facility] Comment on above: Performed By: #### I NFLUAB #### [facility] [address] [place] [address] Dr. Ashlei Hills Please note: Comment Normal [facility] Comment on above: Result Comment: Prot ein electrophoresis scan will follow via computer, mail, or core shaper top delivery. Performed By: #### I NFLUAB #### [facility] [address] [place] [address] Dr. Ashlie Hills Protein [Mass/Vol] 6.9 g/dL Normal 6.0-8.5 [facility] Comment on above: Performed By: #### I NFLUAB #### [facility] [address] [place] [address] Dr. Ashlie Hills C-PEPTIDE, SERUMon 2 C-Peptide, Serum 3.1 ng/mL Normal 1.1-4.4 [facility] Comment on above: Result Comment: C-Pe ptide reference interval is for fasting patients. Performed By: #### C PEPT #### [facility] [address] [place] [address] Dr. Ashlie Hills HEP B SURFACE ANTIGEN SCREEN on 03-04-2022 HBsAg Screen Negative Normal Negative [facility] Comment on above: Performed By: #### C BC #### [facility] [address] [place] [address] Dr. Ashlie Hills HEPATITIS C VIRUS AB W/ REFL EX QUANTon 03-04-2022 HCV AB <0.1 Normal 0.0-0.[address] [facility] Comment on above: Performed By: #### I NFLUAB #### [facility] [address] [place] [address] Dr. Ashlie Hills Interpretation: Comment Normal [facility] Comment on above: Result Comment: Rupert tikike Not infected with HCV, unless recent infection is suspected or other evidence exists to indicate HCV infection. Performed By: #### I NFLUAB #### [facility] [address] [address] [address] Ashlie Hills MICROALBUMIN/ CREATININE RAT IOon 03-04-2022 Albumin, Urine 367.4 ug/mL Normal Not Estab. [facility] Comment on above: Performed By: #### C BC #### [facility] [address] [address] [address] Ashlie Hills Albumin/ Creatinine Ratio 239 mg/g creat Critically high 0-[address] [facility] Comment on above: Result Comment: Norm al: 0 - 29 Moderately increased: 30 - 300 Severely increased: >300 Performed By: #### C BC #### [facility] [address] [address] [address] Ashlie Hills Creatinine, Urine 153.9 mg/dL Normal Not Estab. [facility] Comment on above: Performed By: #### C BC #### [facility] [address] [address] [address] Ashlie Hills VIT D 25-OH LABCORPon 2021 Vitamin D, 25-Hydroxy <4.0 Critically low 30.0-100.[address] [facility] Comment on above: Result Comment: Graciela min D deficiency has been defined by the [place] of Medicine and an Endocrine Society practice guideline as a level of serum 25-OH vitamin D less than 20 ng/mL (1,2). The Endocrine Society went on to further define vitamin D insufficiency as a level between 21 and 29 ng/mL (2). 1. IOM ([place] of Medicine). 2010. Dietary reference intakes for calcium and D. [place]: The National Academies Press. 2. Lynda MF, Keely OLIVEROS, Leandra LOPEZ, et al. Evaluation, treatment, and prevention of vitamin D deficiency: an Endocrine Society clinical practice guideline. JCEM. 2010; 96(7):1911-30. Performed By: #### C BC #### [facility] [address] [address] [address] Ashlie Hills GLYCOHEMOGLOBIN A1Con 2021 ADA RECOMMENDATION SEE BELOW Normal [facility] Comment on above: Result Comment: ADA RECOMMENDED LIMIT 4.0 - 6.0 ADA THERAPEUTIC TARGET < 7.0 ACTION SUGGESTED > 7.0 Performed By: #### C VDAGS #### [facility] [address] [place] [address] Dr. Ashlie Hills Glucose [Mass/Vol] 295 mg/dL Normal [facility] Comment on above: Performed By: #### C VDAGS #### [facility] [address] [address] [address] Ashlie Hills HbA1c (Bld) [Mass fraction] 11.9 % Critically high 4.5-6.[address] [facility] Comment on above: Performed By: #### C VDAGS #### [facility] [address] [place] [address] Dr. Ashlie Hills HEMOGRAM AND PLATELon 2021 Hematocrit (Bld) [Volume fraction] 56.3 % Critically high 36.0-48.[address] [facility] Comment on above: Performed By: #### C VDAGS #### [facility] [address] [place] [address] Dr. Ashlie Hills Hemoglobin (Bld) [Mass/Vol] 18.0 g/dL Critically high 12.0-16.[address] [facility] Comment on above: Performed By: #### C VDAGS #### [facility] [address] [address] [address] Ashlie Hills MCH (RBC) [Entitic mass] 29.5 pg Normal 26.7-34.[address] [facility] Comment on above: Performed By: #### C VDAGS #### [facility] [address] [place] [address] Dr. Ashlie Hills MCHC (RBC) [Mass/Vol] 32.0 g/dL Normal 29.9-35.[address] [facility] Comment on above: Performed By: #### C VDAGS #### [facility] [address] [place] [address] Dr. Ashlie Hills MCV (RBC) [Entitic vol] 92.1 fL Normal 81.0-99.[address] [facility] Comment on above: Performed By: #### C VDAGS #### [facility] [address] [address] [address] Ashlie Hills PLT 123 103/ul Critically low 150-450 [facility] Comment on above: Performed By: #### C VDAGS #### [facility] [address] [address] [address] Ashlie Hills RBC 6.11 106/ul Critically high 4.20-5.40 [facility] Comment on above: Performed By: #### C VDAGS #### [facility] [address] [address] [address] Ashlie Hills WBC 16.4 103/ul Critically high 4.0-11.0 [facility] Comment on above: Performed By: #### C VDAGS #### [facility] [address] [place] [address] Dr. Ashlie Hills LIPID PROFILEon 03-03-2022 CHOL-HDL RATIO NORM SEE BELOW Normal [facility] Comment on above: Result Comment: 3.3 - 4.4 LOW RISK 4.4 - 7.1 AVERAGE RISK 7.1 - 11.0 MODERATE RISK >11.0 HIGH RISK Performed By: #### C VDAGS #### [facility] [address] [place] [address] Dr. Ashlie Hills Cholesterol [Mass/Vol] 159 mg/dL Normal <=200 [facility] Comment on above: Performed By: #### C VDAGS #### [facility] [address] [place] [address] Dr. Ashlie Hills Cholesterol in HDL [Mass/Vol] 40 mg/dL Normal 40-[address] [facility] Comment on above: Performed By: #### C VDAGS #### [facility] [address] [address] [address] Ashlie Hills Cholesterol in LDL [Mass/Vol] 81.8 mg/dL Normal [facility] Comment on above: Performed By: #### C VDAGS #### [facility] [address] [address] [address] Ashlie Hills Cholesterol.total/Ch olesterol in HDL [Mass ratio] 4.0 {ratio} Normal [facility] Comment on above: Performed By: #### C VDAGS #### [facility] [address] [address] [address] Ashlie Hills HDL NORMAL > or = 60 mg/dl - LOW CARDIOVASCULAR RISK <40 mg/dl - HIGH CARDIOVASCULAR RISK Normal [facility] Comment on above: Performed By: #### C VDAGS #### [facility] [address] [address] [address] Ashlie Hills LDL CALC NORMAL SEE BELOW Normal [facility] Comment on above: Result Comment: <100 mg/dl OPTIMAL 100 - 129 mg/dl NEAR OR ABOVE OPTIMAL 130 - 159 mg/dl BORDERLINE HIGH 160 - 189 mg/dl HIGH >190 mg/dl VERY HIGH Performed By: #### C VDAGS #### [facility] [address] [place] [address] Dr. Ashlie Hills Triglyceride [Mass/Vol] 186 mg/dL Critically high <=[address] [facility] Comment on above: Performed By: #### C VDAGS #### [facility] [address] [place] [address] Dr. Ashlie Hills VLDL CALC 37.2 mg/dL Normal [facility] Comment on above: Performed By: #### C VDAGS #### [facility] [address] [address] [address] Ashlie Hills RENAL FUNCTION PANELon 03-03 Albumin [Mass/Vol] 3.1 g/dL Critically low 3.4-5.0 Th [facility] Comment on above: Performed By: #### C BC #### [facility] [address] [address] [address] Ashlie Hills Calcium [Mass/Vol] 9.2 mg/dL Normal 8.5-10.1 [facility] Comment on above: Performed By: #### C BC #### [facility] [address] [address] [address] Ashlie Hills Chloride [Moles/Vol] 102 mmol/L Normal 98-107 [facility] Comment on above: Performed By: #### C BC #### [facility] [address] [address] [address] Ashlie Hills CO2 [Moles/Vol] 31.9 mmol/L Normal 21.0-32.0 [facility] Comment on above: Performed By: #### C BC #### [facility] [address] [place] [address] Dr. Ashlie Hills Creatinine [Mass/Vol] 0.68 mg/dL Normal 0.55-1.[address] [facility] Comment on above: Performed By: #### C BC #### [facility] [address] [place] [address] Dr. Ashlie Hills EGFR-AF ARGENTINE >60 Normal >=60 [facility] Comment on above: Performed By: #### C BC #### [facility] [address] [place] [address] Dr. Ashlie Hills EGFR-NON AF ARGENTINE >60 Normal >=60 [facility] Comment on above: Performed By: #### C BC #### [facility] [address] [place] [address] Dr. Ashlie Hills Glucose [Mass/Vol] 131 mg/dL Critically high 74-106 [facility] Comment on above: Performed By: #### C BC #### [facility] [address] [place] [address] Dr. Ashlie Hills Phosphate [Mass/Vol] 4.0 mg/dL Normal 2.6-4.7 [facility] Comment on above: Performed By: #### C BC #### [facility] [address] [place] [address] Dr. Ashlie Hills Potassium [Moles/Vol] 4.0 mmol/L Normal 3.5-5.1 [facility] Comment on above: Performed By: #### C BC #### [facility] [address] [place] [address] Dr. Ashlie Hills Sodium [Moles/Vol] 141 mmol/L Normal 136-145 [facility] Comment on above: Performed By: #### C BC #### [facility] [address] [place] [address] Dr. Ashlie Hills Urea nitrogen [Mass/Vol] 17.0 mg/dL Normal 7.0-18.[address] [facility] Comment on above: Performed By: #### C BC #### [facility] [address] [place] [address] Dr. Ashlie Hills UA RANDOM W/MICROSCOPICon BACTERIA NONE SEEN Normal NONE SEEN [facility] Comment on above: Performed By: #### I NFLUAB #### [facility] [address] [place] [address] Dr. Ashlie Hills Bilirubin Ql (U) Negative Normal NEGATIVE [facility] Comment on above: Performed By: #### I NFLUAB #### [facility] [address] [place] [address] Dr. Ashlie Hills CAST NONE SEEN Normal NONE SEEN [facility] Comment on above: Performed By: #### I NFLUAB #### [facility] [address] [place] [address] Dr. Ashlie Hills Clarity (U) CLEAR Normal CLEAR [facility] Comment on above: Performed By: #### I NFLUAB #### [facility] [address] [place] [address] Dr. Ashlie Hills Color (U) YELLOW Normal YELLOW [facility] Comment on above: Performed By: #### I NFLUAB #### [facility] [address] [place] [address] Dr. Ashlie Hills Crystals LM Nom (Urine sed) NONE SEEN Normal NONE SEEN [facility] Comment on above: Performed By: #### I NFLUAB #### [facility] [address] [place] [address] Dr. Ashlie Hills Epithelial cells LM Ql (Urine sed) FEW Abnormal NONE SEEN /RARE [facility] Comment on above: Performed By: #### I NFLUAB #### [facility] [address] [place] [address] Dr. Ashlie Hills Glucose Ql (U) Negative Normal NEGATIVE [facility] Comment on above: Performed By: #### I NFLUAB #### [facility] [address] [place] [address] Dr. Ashlie Hills Hemoglobin Ql (U) Negative Normal NEGATIVE [facility] Comment on above: Performed By: #### I NFLUAB #### [facility] [address] [address] [address] Ashlie Hills Ketones Ql (U) Negative Normal NEGATIVE [facility] Comment on above: Performed By: #### I NFLUAB #### [facility] [address] [address] [address] Ashlie Hills LEUKOCYTES Negative Normal NEGATIVE [facility] Comment on above: Performed By: #### I NFLUAB #### [facility] [address] [place] [address] Dr. Ashlie Hills MUCOUS NONE SEEN Normal NONE SEEN [facility] Comment on above: Performed By: #### I NFLUAB #### [facility] [address] [place] [address] Dr. Ashlie Hills Nitrite Ql (U) Negative Normal NEGATIVE [facility] Comment on above: Performed By: #### I NFLUAB #### [facility] [address] [place] [address] Dr. Ashlie Hills pH (U) 5.5 [pH] Normal 5-9 [facility] Comment on above: Performed By: #### I NFLUAB #### [facility] [address] [place] [address] Dr. Ashlie Hills RBC 0-2 Normal 0-[address] [facility] Comment on above: Performed By: #### I NFLUAB #### [facility] [address] [place] [address] Dr. Ashlie Hills SPEC GRAVITY >=1.030 Abnormal 1.005-<=1.025 [facility] Comment on above: Performed By: #### I NFLUAB #### [facility] [address] [place] [address] Dr. Ashlie Hills UA PROTEIN 100 mg/dl Abnormal NEGATIVE/ TRACE [facility] Comment on above: Performed By: #### I NFLUAB #### [facility] [address] [place] [address] Dr. Ashlie Hills Urobilinogen Qn (U) 0.2 {Little'U}/dL Normal 0.2 - 1. [address] [facility] Comment on above: Performed By: #### I NFLUAB #### [facility] [address] [place] [address] Dr. Ashlie Hills WBC NONE SEEN Normal NONE SEEN [facility] Comment on above: Performed By: #### I NFLUAB #### [facility] [address] [place] [address] Dr. Ashlie Hills URIC ACID SERUMon 03-03-2022 Urate [Mass/Vol] 5.0 mg/dL Normal 2.6-6.0 [facility] Comment on above: Performed By: #### I NFLUAB #### [facility] [address] [place] [address] Dr. Ashlie Hills URINE T PROTEIN CREAT RATIOo n 03-03-2022 Protein (U) [Mass/Vol] 77.9 mg/dL Critically high <=12.[address] [facility] Comment on above: Performed By: #### C VDAGS #### [facility] [address] [place] [address] Dr. Ashlie Hills UR PROT CREAT RAT 0.44 Normal [facility] Comment on above: Performed By: #### C VDAGS #### [facility] [address] [place] [address] Dr. Ashlie Hills URINE CREAT 175.15 mg/dL Normal 20.00-300.00 [facility] Comment on above: Performed By: #### C VDAGS #### [facility] [address] [place] [address] Dr. 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 Your Care Team Attending Physician - Elbert VARGAS MD Primary Care Physician - LUIS M CHAND CNP Referring Physician - LUIS M CHAND CNP This Is Your Medications List Contact prescribing physician if questions or concerns acetaminophen-hydroc odone (acetaminophen-hydro codone 325 mg-5 mg oral tablet) albuterol (albuterol 0.083% Inh Tracey 3 mL) amitriptyline (amitriptyline 25 mg Tab) budesonide-formotero l (Symbicort 160/4.5 inhalation aerosol with adapter) diclofenac [...] Following Appointments Follow Up with REGLA PHIPPS, GEMA Vicente When: In 6 months Comments: w/ repeat CT A/P Where: [facility] [address] [place] [address]- [phone] Medications What How Much When Instructions Unchanged acetaminophen-hydroc odone (acetaminophen-hydro codone 325 mg-5 mg oral tablet) Contact prescribing physician if questions or concerns Unchanged albuterol (albuterol 0.083% Inh Tracey 3 mL) Contact prescribing physician if questions or concerns Unchanged amitriptyline (amitriptyline 25 mg Tab) Contact prescribing physician if questions or concerns Unchanged budesonide-formotero l (Symbicort 160/ 4.5 inhalation aerosol with adapter) [...] Urnls Dip Stick Auto w/o Microscopy POC 24148 (02/06/2022) Bilirubin Urine Dipstick - Negative Blood Urine Dipstick - Negative Glucose Urine Dipstick - 2+ 500 mg/dl Ketones Urine Dipstick - Negative Leukocytes Urine Dipstick - Negative Nitrite Urine Dipstick - Negative Protein Urine Dipstick - 3+ (300 mg/dl) Specific [place] Urine Dipstick - >=1.030 Urine Appearance Urine [...] is caused (more content not included)... [facility] Patient Educationon 02-07-20 Patient Education Obstetrics and Gynecology Overactive Bladder, Adult Overactive bladder refers to [...] Take ove (more content not included)... [facility] Office/Clinic Noteon 02-06-2022 Urology Office/Clinic Note Chief Complaint left flank pain HPI Staff New pt [...] of protein. Recommended pt to see a wafer batter mixer due to high protein levels in the urine. All questions/concerns were discussed. Pt to call office if she encounters any issues prior. Pt acknowledges understanding. Other obstructive and reflux uropathy (N13.8: Other obstructive and reflux uropathy) Follow-up With When Contact Information Elbert VARGAS MD, URL In 6 months [facility] [address] [place] [address]- [phone] Additional Instructions: w/ repeat CT A/P Patient [...] flank pain (more content not included)... [facility] Comment on above: Result Comment: Elec tronically Signed By: Elbert VARGAS MD\.br\Date and Time Signed: 02/06/22 11:45 EDT\.br\Electronically Co-Signed By: Enedelia Mendoza\.br\Date and Time Co-Signed: 02/06/22 11:42 EDT CULTURE URINEon 12-25-2021 CULTURE URINE Culture Observations: GREATER THAN TWO ORGANISMS PRESENT, HEAVILY MIXED. PLEASE RESUBMIT CLEAN CATCH MID-STREAM URINE IF CLINICALLY INDICATED. Normal [facility] Comment on above: Performed By: #### I NFLUAB #### [facility] [address] [address] [address] Ashlie Hills CBC AUTO DIFFon 12-24-2021 BASO # 0.1 103/ul Normal 0.0-0.[address] [facility] Comment on above: Performed By: #### C BC #### [facility] [address] [address] [address] Ashlie Hills Basophils/100 WBC (Bld) 0.5 % Normal 0.2-2.[address] [facility] Comment on above: Performed By: #### C BC #### [facility] [address] [address] [address] Ashlie Hills EO # 0.4 103/ul Normal 0.0-0.[address] [facility] Comment on above: Performed By: #### C BC #### [facility] [address] [place] [address] Dr. Ashlie Hills Eosinophils/100 WBC (Bld) 2.4 % Normal 0.9-7.[address] [facility] Comment on above: Performed By: #### C BC #### [facility] [address] [place] [address] Dr. Ashlie Hills Erythrocyte distribution width (RBC) [Ratio] 14.1 % Normal 11.0-15.[address] [facility] Comment on above: Performed By: #### C BC #### [facility] [address] [place] [address] Dr. Ashlie Hills Hematocrit (Bld) [Volume fraction] 55.9 % Critically high 36.0-48.[address] [facility] Comment on above: Performed By: #### C BC #### [facility] [address] [place] [address] Dr. Ashlie Hills Hemoglobin (Bld) [Mass/Vol] 17.9 g/dL Critically high 12.0-16.[address] [facility] Comment on above: Performed By: #### C BC #### [facility] [address] [place] [address] Dr. Ashlie Hills IG # 0.06 10e3/ul Critically high 0.00-0.03 [facility] Comment on above: Performed By: #### C BC #### [facility] [address] [place] [address] Dr. Ashlie Hills IG % 0.4 % Normal 0.0-0.[address] [facility] Comment on above: Performed By: #### C BC #### [facility] [address] [place] [address] Dr. Ashlie Hills LYMPH # 5.8 103/ul Critically high 1.2-3.8 [facility] Comment on above: Performed By: #### C BC #### [facility] [address] [place] [address] Dr. Ashlie Hills Lymphocytes/100 WBC (Bld) 35.4 % Normal 20.5-60.[address] [facility] Comment on above: Performed By: #### C BC #### [facility] [address] [place] [address] Dr. Ashlie Hills MANUAL DIFF REQ NO Normal [facility] Comment on above: Performed By: #### C BC #### [facility] [address] [place] [address] Dr. Ashlie Hills MCH (RBC) [Entitic mass] 29.4 pg Normal 26.7-34.[address] [facility] Comment on above: Performed By: #### C BC #### [facility] [address] [place] [address] Dr. Ashlie Hills MCHC (RBC) [Mass/Vol] 32.0 g/dL Normal 29.9-35.2 [facility] Comment on above: Performed By: #### C BC #### [facility] [address] [place] [address] Dr. Ashlie Hills MCV (RBC) [Entitic vol] 91.8 fL Normal 81.0-99.[address] [facility] Comment on above: Performed By: #### C BC #### [facility] [address] [place] [address] Dr. Ashlie Hills MONO # 0.8 103/ul Normal 0.3-0.[address] [facility] Comment on above: Performed By: #### C BC #### [facility] [address] [place] [address] Dr. Ashlie Hills Monocytes/100 WBC (Bld) 4.8 % Normal 1.7-12.[address] [facility] Comment on above: Performed By: #### C BC #### [facility] [address] [place] [address] Dr. Ashlie Hills NEUT # 9.3 103/ul Critically high 1.4-6.5 [facility] Comment on above: Performed By: #### C BC #### [facility] [address] [place] [address] Dr. Ashlie Hills Neutrophils/100 WBC (Bld) 56.5 % Normal 43.0-75.0 [facility] Comment on above: Performed By: #### C BC #### [facility] [address] [place] [address] Dr. Ashlie Hills Platelet mean volume (Bld) [Entitic vol] 12.9 fL Normal 9.5-13.[address] [facility] Comment on above: Performed By: #### C BC #### [facility] [address] [address] [address] Ashlie Hills PLT 127 103/ul Critically low 150-450 [facility] Comment on above: Performed By: #### C BC #### [facility] [address] [place] [address] Dr. Ashlie Hills RBC 6.09 106/ul Critically high 4.20-5.40 [facility] Comment on above: Performed By: #### C BC #### [facility] [address] [place] [address] Dr. Ashlie Hills WBC 16.4 103/ul Critically high 4.0-11.0 [facility] Comment on above: Performed By: #### C BC #### [facility] [address] [place] [address] ABD/PELVIS WO CONon [...] Severe right hip degenerative change. Normal [facility] URINE PROFILEon 2 Bilirubin Ql (U) Negative Normal NEGATIVE [facility] Comment on above: Performed By: #### Tracey LYMAN UMICRO #### [facility] [address] [place] [address] Dr. Ashlie Hills Clarity (U) CLEAR Normal CLEAR [facility] Comment on above: Performed By: #### E RUR UMICRO #### [facility] [address] [place] [address] Dr. Ashlie Hills Color (U) DK. ORANGE Abnormal YELLOW [facility] Comment on above: Performed By: #### Tracey LYMAN UMICRO #### [facility] [address] [place] [address] Dr. Ashlie HOBBS A micrscopic examination will be performed if indicated. Normal [facility] Comment on above: Performed By: #### Tracey RUMahnaz UMICRO #### [facility] [address] [place] [address] Dr. Ashlie Hills Glucose Ql (U) 250 mg/dl Abnormal NEGATIVE [facility] Comment on above: Performed By: #### Tracey RUR UMICRO #### [facility] [address] [place] [address] Dr. Ahslie Hills Hemoglobin Ql (U) Negative Normal NEGATIVE [facility] Comment on above: Performed By: #### Tracey RUR UMICRO #### [facility] [address] [place] [address] Dr. Ashlie Hills Ketones Ql (U) Negative Normal NEGATIVE [facility] Comment on above: Performed By: #### Tracey RUR UMICRO #### [facility] [address] [place] [address] Dr. Ashlie Hills LEUKOCYTES Negative Normal NEGATIVE [facility] Comment on above: Performed By: #### E RUR, UMICRO #### [facility] [address] [place] [address] Dr. Ashlie Hills Nitrite Ql (U) Negative Normal NEGATIVE [facility] Comment on above: Performed By: #### E RUR UMICRO #### [facility] [address] [place] [address] Dr. Ashlie Hills pH (U) 5.0 [pH] Normal 5-9 [facility] Comment on above: Performed By: #### Tracey LYMAN UMICRO #### [facility] [address] [address] [address] Ashlie Hills Protein (U) [Mass/Vol] 100 mg/dL Abnormal NEGATIVE/ TRACE [facility] Comment on above: Performed By: #### Tracey LYMAN UMICRO #### [facility] [address] [place] [address] Dr. Ashlie Hills SPEC GRAVITY >=1.030 Abnormal 1.005-<=1.025 [facility] Comment on above: Performed By: #### MADELINE DIAZRO #### [facility] [address] [place] [address] Dr. Ashlie Hills UR MICRO IND INDICATED Normal [facility] Comment on above: Performed By: #### Tracey LYMAN UMICRO #### [facility] [address] [place] [address] Dr. Ashlie Hills Urobilinogen Qn (U) 1.0 {Little'U}/dL Normal 0.2 - 1. [address] [facility] Comment on above: Performed By: #### Tracey LYMAN UMHARRIETRO #### [facility] [address] [place] [address] Dr. Ashlie Hills PROF CHEM 8 (BAS METB)on Anion gap [Moles/Vol] 12.1 mmol/L Normal [facility] Comment on above: Performed By: #### I NFLUAB #### [facility] [address] [place] [address] Dr. Ashlie Hills Calcium [Mass/Vol] 9.0 mg/dL Normal 8.5-10.1 [facility] Comment on above: Performed By: #### I NFLUAB #### [facility] [address] [place] [address] Dr. Ashlie Hills Chloride [Moles/Vol] 101 mmol/L Normal 98-[address] [facility] Comment on above: Performed By: #### I NFLUAB #### [facility] [address] [address] [address] Ashlie Hills CO2 [Moles/Vol] 29.1 mmol/L Normal 21.0-32.0 [facility] Comment on above: Performed By: #### I NFLUAB #### [facility] [address] [address] [address] Ashlie Hills Creatinine [Mass/Vol] 0.86 mg/dL Normal 0.55-1.[address] [facility] Comment on above: Performed By: #### I NFLUAB #### [facility] [address] [place] [address] Dr. Ashlie Hills EGFR-AF ARGENTINE >60 Normal >=60 [facility] Comment on above: Performed By: #### I NFLUAB #### [facility] [address] [address] [address] Ashlie Hills EGFR-NON AF ARGENTINE >60 Normal >=[address] [facility] Comment on above: Performed By: #### I NFLUAB #### [facility] [address] [address] [address] Ashlie Hills Glucose [Mass/Vol] 236 mg/dL Critically high 74-106 [facility] Comment on above: Performed By: #### I NFLUAB #### [facility] [address] [address] [address] Ashlie Hills Potassium [Moles/Vol] 4.2 mmol/L Normal 3.5-5.[address] [facility] Comment on above: Performed By: #### I NFLUAB #### [facility] [address] [address] [address] Ashlie Hills Sodium [Moles/Vol] 138 mmol/L Normal 136-145 [facility] Comment on above: Performed By: #### I NFLUAB #### [facility] [address] [address] [address] Ashlie Hills Urea nitrogen [Mass/Vol] 11.0 mg/dL Normal 7.0-18.[address] [facility] Comment on above: Performed By: #### I NFLUAB #### [facility] [address] [place] [address] Dr. Ashlie Hills Urea nitrogen/Creatinine [Mass ratio] 12.8 mg/mg Normal [facility] [facility] Comment on above: Performed By: #### I NFLUAB #### [facility] [address] [place] [address] Dr. Ashlie Hills URINE MICROSCOPIC ONLYon BACTERIA SMALL Abnormal NONE SEEN [facility] Comment on above: Performed By: #### E RUR, UMICRO #### [facility] [address] [place] [address] Dr. Ashlie Hills Bacteria identified Cx Nom (U) INDICATED Normal [facility] Comment on above: Performed By: #### E RUR, UMICRO #### [facility] [address] [place] [address] Dr. Ashlie Hills CAST NONE SEEN Normal NONE SEEN [facility] Comment on above: Performed By: #### E RUR, UMICRO #### [facility] [address] [place] [address] Dr. Ashlie Hills Crystals LM Nom (Urine sed) NONE SEEN Normal NONE SEEN [facility] Comment on above: Performed By: #### E JIMMYR, UMICRO #### [facility] [address] [place] [address] Dr. Ashlie Hills Epithelial cells LM Ql (Urine sed) MODERATE Abnormal NONE SEEN /RARE [facility] Comment on above: Performed By: #### E RUR, UMICRO #### [facility] [address] [place] [address] Dr. Ashlie Hills MUCOUS NONE SEEN Normal NONE SEEN [facility] Comment on above: Performed By: #### E RUR, UMICRO #### [facility] [address] [place] [address] Dr. Ashlie Hills RBC 0-2 Normal 0-2 [facility] Comment on above: Performed By: #### E JIMMYR, UMICRO #### [facility] [address] [place], [place] [id number] Dr. Ashlie Hills WBC 0-2 Abnormal NONE SEEN [facility] Comment on above: Performed By: #### E EVONNE LYMAN #### [facility] [address] [place] [address] Dr. Ashlie Hills YEAST PRESENT Abnormal NONE SEEN [facility] Comment on above: Performed By: #### E EVONNE LYMAN #### [facility] [address] [place] [address] Dr. Ashlie Hills HIP RIGHT 1 OR 2 VWS WITH PE LVISon 07-20-2020 HIP RIGHT 1 OR 2 VWS WITH PELVIS [facility] Department of Radiology [address] [place] [address] Patient Name: MITZI MACIAS : 1970 Sex: F Age: Race: White Pt. Location: Patient Status: O Ordered Date: 07/20/2020 1:45:00 PM Completed Date: 07/20/2020 01:57 PM Requesting Provider: LIZ EISENBERG Attending Provider: LIZ EISENBERG Report Copy To: LUIS M CHAND Signs & Symptoms: M25.551 Pain in right hip I10 History: [place] Comments: evaluate Exam: HIP RIGHT 1 OR [...] MRI. Electronically signed: Pipo Acevedo. Transcribed by: [email or web address], User Resident: Electronically Signed by: PIPO ACEVEDO @ 07/20/2020 03:45 PM Normal [facility] Comment on above: Order Comment: evalu ate Vital Signs Date Time Vital Sign Value Performing Clinician Facility 03-08-2022 15:00-0400 Body height 170.18 cm Stephanie Tico Other [facility] Other 03-08-2022 15:00-0400 Body temperature 97.6 [degF] Stephanie Tico Other [facility] Other 03-08-2022 15:00-0400 Diastolic blood pressure 72 mm[Hg] Stephanie Tico Other [facility] Other 03-08-2022 15:00-0400 Respiratory rate 20 /min Stephanie Tico Other [facility] Other 03-08-2022 15:00-0400 SaO2% (BldA) [Mass fraction] 91 % Stephanie Tico Other [facility] Other 03-08-2022 15:00-0400 Systolic blood pressure 131 mm[Hg] Stephanie Tico Other [facility] Other 02-20-2022 09:20-0400 Body height 170.18 cm Stephanie Tico Other [facility] Other 02-20-2022 09:20-0400 Body temperature 96.5 [degF] Stephanie Tico Other [facility] Other 02-20-2022 09:20-0400 Diastolic blood pressure 69 mm[Hg] Stephanie Tico Other [facility] Other 02-20-2022 09:20-0400 Respiratory rate 20 /min Stephanie Tico Other [facility] Other 02-20-2022 09:20-0400 SaO2% (BldA) [Mass fraction] 91 % Stephanie Tico Other [facility] Other 02-20-2022 09:20-0400 Systolic blood pressure 129 mm[Hg] Stephanie Tico Other [facility] Other 02-06-2022 10:24-0400 Blood Pressure Location [facility] [email or web address] 02-06-2022 10:24-0400 Diastolic blood pressure 76 mm[Hg] Elbert VARGAS [facility] 02-06-2022 10:24-0400 Heart rate 70 /min Elbert VARGAS [facility] 02-06-2022 10:24-0400 Respiratory rate 16 /min Elbert VARGAS [facility] 02-06-2022 10:24-0400 Systolic blood pressure 134 mm[Hg] Elbert VARGAS [facility] Encounters Encounter Date Encounter Type Care Provider Facility Start: 04-22-2024 ambulatory GAVIOTA VEGA Facili ty:[facility] Start: 07-10-2023 End: 07-10-2023 ambulatory LUIS M CHAND Not Available Start: 12-05-2022 ambulatory MATEUSZ ANGULOMATEOAmaury . Facility:[facility] Start: 12-05-2022 End: 12-06-2022 Evaluation and management of inpatient UMBERTO CANTU . Facility:[facility] Start: 11-23-2022 End: 11-23-2022 ambulatory SAYDA CHAND Facility:[facility] Start: 11-22-2022 End: 11-23-2022 ambulatory SAYDA CHAND Facility:[facility] Start: 11-17-2022 End: 11-18-2022 ambulatory SUBHASH GASPAR . Facility:[facility] Start: 11-15-2022 End: 11-16-2022 ambulatory GAVIOTA VEGA Facility:[facility] Start: 11-15-2022 End: 11-15-2022 Patient encounter procedure GAVIOTA VEGA [facility] Start: 10-05-2022 End: 10-05-2022 ambulatory MARIANO DIAB . Facility:[facility] Start: 09-21-2022 End: 09-21-2022 ambulatory SAYDA CHAND Facility:[facility] Start: 09-14-2022 ambulatory RAFAEL Ribera y:[facility] Start: 08-24-2022 End: [address] CHAPARRO MORTENSEN . Facility:[facility] Start: 08-21-2022 End: 08-22-2022 ambulatory HATTIE BRODERICK Facility:[facility] Start: 07-27-2022 End: 07-28-2022 ambulatory CECILIA TORRES . Facility:[facility] Start: 07-18-2022 End: 07-19-2022 ambulatory CECILIA TORRES . Facility:[facility] Start: 07-18-2022 End: 07-19-2022 ambulatory HATTIE BRODERICK Facility:[facility] Start: 07-06-2022 End: 07-06-2022 ambulatory [employer] LUIS M CHAND Facility:[facility] Start: 05-11-2022 End: 05-12-2022 ambulatory GIL VALENZUELA . Facility:[facility] Start: 04-25-2022 End: 04-25-[address] CHAPARRO MORTENSEN . Facility:[facility] Start: 04-20-2022 End: 04-21-2022 ambulatory GIL VALENZUELA . Facility:[facility] Start: 03-08-2022 End: 03-08-2022 ambulatory Stephanie Tico Other [facility] Other Start: 03-08-2022 Office outpatient vi sit 15 minutes Stephanie Tico [facility] Start: 03-03-2022 End: 03-04-2022 ambulatory SAYDA CHAND Facility:[facility] Start: 02-20-2022 End: 02-20-2022 ambulatory Stephanie Tico Other [facility] Other Start: 02-20-2022 Office outpatient ne w 45 minutes Stephanie Tico [facility] Start: 02-06-2022 ambulatory GAVIOTA VEGA [facility] Start: 02-06-2022 End: 02-07-2022 ambulatory LUIS M CHAND Facility:[facility] Start: 02-06-2022 End: 02-06-2022 Patient encounter procedure Elbert VARGAS [facility] Start: 01-19-2022 End: 01-20-2022 ambulatory GIL VALENZUELA . Facility:[facility] Start: 01-05-2022 ambulatory GAVIOTA VEGA Facility :[facility] Start: 12-24-2021 End: 12-24-2021 ambulatory OLE RAMIREZ Facility: Start: 08-26-2020 End: 09-10-2020 Patient encounter procedure MARY TAVERAS Facility:[facility] Start: 10-30-2019 End: 10-30-2019 Emergency department patient visit JAMES Reis [facility] Start: 10-30-2019 End: 10-30-2019 Emergency department patient visit James Desouza [facility] Emergency Department Start: 11-02-2016 Preoperative state Stephanie Tico Other [facility] Other Procedures Date Procedure Procedure Detail Performing Clinician H/O: hysterectomy Elbert LARA Laparoscopic cholecystectomy Elbert VARGAS Operative procedure on foot Elbert VARGAS Plan of Treatment Date Care Activity Detail Author Start: 03-09-2020 Influenza vaccination Flu vacc ine (Season Ended) [place], [place] Start: 2010 Lipid panel Lipid screen [place], [place] Start: 1991 Screening for malign ant neoplasm of cervix Cervical cancer screen [place], [place] Start: 1989 DTaP/Tdap/Td vaccine (1 - Tdap) DTaP/Tdap/Td vaccine (1 - Tdap) [place], [place] Start: 1985 HIV screening HIV screen [place], [place] Immunizations Immunization Date Immunization Notes Care Provider Fa lance 07-19-2021 SARS-CoV-2 (COVID-19 ) mRNA BNT-162b2 vax GAVIOTA SILVIA [facility] 10-28-2020 SARS-CoV-2 (COVID-19 ) mRNA BNT-162b2 vax GAVIOTA SILVIA [facility] 10-08-2020 SARS-CoV-2 (COVID-19 ) mRNA BNT-162b2 vax GAVIOTA SILVIA [facility] Payers Date Payer Category Payer Unknown [id number] 2.16.8 [id number] 1970 Unknown [id number] 2.16.8 40.1.682014.3.579.2.727 1970 Unknown [id number] 2.16.8 40.1.222403.3.579.2.727 1970 Unknown [id number] 2.16.8 40.1.846885.3.579.2.727 1970 Unknown [id number] 2.16.8 40.1.214482.3.579.2.727 1970 Unknown [id number] 2.16.84 0.1.717142.3.579.2.593 1970 Unknown [id number] 2.16.84 0.1.357632.3.579.2.593 1970 Unknown [id number] 2.16.84 0.1.039136.3.579.2.593 1970 Unknown [id number] 2.16.84 0.1.558149.3.579.2.593 1970 Unknown [id number] 2.16.84 0.1.811131.3.579.2.593 1970 Unknown [id number] 2.16.84 0.1.936195.3.579.2.593 1970 Unknown [id number] 2.16.84 0.1.257502.3.579.2.593 1970 Unknown [id number] 2.16.84 0.1.335936.3.579.2.593 1970 Unknown [id number] 2.16.84 0.1.440959.3.579.2.593 1970 Unknown [id number] 2.16.84 0.1.655497.3.579.2.593 1970 Unknown [id number] 2.16.84 0.1.511690.3.579.2.593 1970 Unknown [id number] 2.16.84 0.1.434492.3.579.2.593 1970 Unknown [id number] 2.16.84 0.1.139589.3.579.2.593 1970 Unknown [id number] 2.16.84 0.1.265314.3.579.2.593 1970 Unknown [id number] 2.16.84 0.1.701690.3.579.2.593 1970 Unknown [id number] 2.16.84 0.1.270647.3.579.2.593 1970 Unknown [id number] 2.16.84 0.1.842879.3.579.2.593 1970 Unknown [id number] 2.16.84 0.1.700995.3.579.2.593 1970 Unknown [id number] 2.16.84 0.1.049146.3.579.2.593 1970 Unknown [id number] 2.16.84 0.1.020504.3.579.2.593 1970 Unknown [id number] 2.16.84 0.1.129275.3.579.2.593 1970 Unknown [id number] 2.16.84 0.1.801500.3.579.2.593 1970 Unknown [id number] 2.16.840 .1.599371.3.579.2.1259 1959 Medicaid [id number] 1959 Private Health Insurance [id number] 1959 Unknown [id number] 2.1 6.840.1.963962.19 Social History Date Type Detail Facility Start: 02-17-1994 [facility] [place] Start: 02-17-1994 History of tobacco use Cigarette Smo ker [place], [place] Start: 02-17-2014 Cigarettes smoked current (pack per day) - Reported [place], [place] Start: 02-17-2014 Alcohol intake Current drinke r of alcohol (finding) [place], [place] Start: 02-17-2014 Alcohol Comment Rare [place], [place] Sex Assigned At Not on file [place], [place] Exposure to SARS-CoV -2 (event) Unable to assess [facility], [place] Start: 02-06-2022 Tobacco smoking status Smoker (junior ocampo) [facility] Sex Assigned At Female [facility] Start: 11-15-2022 Tobacco smoking status Heavy t obacco smoker (finding) [facility] Functional Status Date Assessment Result Facility 11-15-2022 Functional Status N/A [facility] 02-06-2022 Functional Status N/A [facility] Clinical Notes 01-19-2022 to 11-15-2022 [...] include: ?8 oz (237 mL) of milk, qppyeuh-ycrnpvmlqddb-aifvl milk, and calcium-fortifiedfruit juice. Calcium-fortified means that [...] ?Spinach (cooked), rhubarb, beets, sweet potatoes, and [place] chard. ?Peanuts. ?Potato chips, maltese fries, and baked potatoes with skin on. ?Nuts and nut products. ?Chocolate. If you regularly take a diuretic medicine, make sure to eat at least 1 or 2 servings of fruits or vegetables that are high in potassium each day. These include: ?Avocado. ?Banana. ?Robeson, prune, carrot, or tomato juice. ?Baked potato. [...] magnesium, fish oil, or vitamin B6. Take jeet-srx-wyrpkjc and prescription medicines only as told by [...] Casseroles. Pizza. Lasagna. Frozen meals. Potato chips. Syriac fries. The items listed above may not [...] provider. Document Revised: 03/06/2022 Document Reviewed: 03/06/2022 Audience Patient Education 2022 Shopping Mail. Follow Up Care 02/06/2022 11:44:09 With:GAVIOTA VEGA PA-C, URL Address: [address] [facility] [place] [address] When: Unknown [facility] 08-24-2022 Note CONSULTATION CONSULTATION DATE: 08/24/2022 HISTORY [...] We maintain her on pain medication with Antwerp 5/325 t.i.d., diclofenac 75 mg b.i.d. Her [...] her at this point. A refill for Antwerp 5/325 t.i.d. and diclofenac 75 mg b.i.d. will be sent to the pharmacy. Vitamin compliance and nutrition were discussed and enforced. I did highly encourage her to use exercise bands to increase the strength in her lower extremities. We will see her in three months' time, unless otherwise indicated, and patient agrees. [facility] 05-11-2022 Note CONSULTATION CONSULTATION DATE: 05/11/2022 [...] 150. Medications include Lyrica 300 mg b.i.d., Antwerp 5/325 t.i.d., diclofenac 75 mg b.i.d. and [...] her medications today. We will maintain Lyrica, Antwerp and diclofenac at the set dose and frequency. We will follow-up in the clinic in three months' time. The patient is in agreement to this. Vitamin importance and nutrition were discussed. [facility] 04-20-2022 Note CONSULTATION CONSULTATION DATE: 04/20/2022 [...] medications include Tylenol, Lyrica 300 mg b.i.d., Antwerp 5/325 t.i.d., amitriptyline, diclofenac and duloxetine. Patient's [...] be followed up in the clinic. [facility] 03-08-2022 Evaluation note Encounter Date Diagnosis [...] to the DANIEL. Thrombocytopenia is unclear etiology. [facility] Other 08-15-2022 Evaluation note* Encounter Date Diagnosis [...] follow with Dr. Souza and Dr. Vargas. [facility] Other 08-01-2022 Hospital Discharge instructions Patient Education [...] fried and sweet foods. General instructions Take plrj-vhn-jwxmlxg and prescription medicines only as told by [...] 04/21/2010 Document Revised: 10/16/2019 Document Reviewed: 07/11/2018 Audience Patient Education 2020 Shopping Mail. Follow Up Care 01/05/2022 12:02:03 With:REGLA PHIPPS, Elbert Joya, URL Address: [facility] [address], [place] [address] [phone] When:Within 6 Month(s) Comments:w/ repeat CT A/P [facility] 07-14-2022 NoteCONSULTATION PROCEDURE DATE: 01/19/2022 PRE AND [...] pattern and the patient tolerated it well. [facility] Signed and Approved by: GIL VALENZUELA . 01/27/2022 14:15:00[facility]07-14-2022 NoteCONSULTATION CONSULTATION DATE: 01/19/2022 This is [...] today. Medications include Lyrica 300 mg b.i.d., Antwerp 5/325 t.i.d., diclofenac 75 mg b.i.d. and [...] in three months' time unless otherwise indicated. [facility] Signed and Approved by: GIL VALENZUELA . 01/27/2022 [facility]ments Appointment Date:08/14/2022 09:15:00 AM Scheduled Provider:Elbert VARGAS MD Location:[facility] Appointment Type:URO Office Visit [facility] evaluation + Plan note Future Appointments Appointment Date:04/22/2024 10:00:00 AM Scheduled Provider:GAVIOTA VEGA PA-C Location:[facility] Appointment Type:URO Office Visit [facility] [email or web address] History general Narrative - Reported* Type Description [...] History sepsis 2010 Hospitalization History SEE ABOVE [facility] Other Hospital course Narrative No data available for this section [facility] [email or web address] progress note No data available for this section [facility] [email or web address] reason for referral (narrative) , Referral to Dr. 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 Advance Directives and Living Will Power of Rn Social Work Summary Purpose Family History No Family History Records FoundNo Family History Records FoundNo Family History Records FoundNo Family History Records FoundNo Family History Records Found Additional Source Comments INFORMATION SOURCE (unrecogn ized section and content) DATE CREATED AUTHOR 10/30/2019 [facility] DATE CREATED AUTHOR AUTHOR'S ORGANIZ ATION 09/15/2020 [facility] DATE CREATED AUTHOR AUTHOR'S ORGANIZ ATION 11/16/2022 Toni Mccormack [facility] DATE CREATED AUTHOR AUTHOR'S ORGANIZ ATION 12/19/2022 [facility] DATE CREATED AUTHOR AUTHOR'S ORGANIZ ATION 07/11/2023 [facility] EPIC Care Team (unrecognized sect ion and content) Personnel Name: ROBERTOLUIS M FELICIANO CNP Address: [address] [place] [address] Personnel Name: MANNIE SAYDA LUIS M J Address: Address: [address] [place] [address] REASON FOR VISIT (unrecogniz ed section and [...] BE BASED ON THE PRIMARY CLINICAL RECORDS. [facility] [employer] [facility] provides no warranty or guarantee of the accuracy or completeness of information in this document.
[2023-08-14 09:28] VITALS: BP 128/65; PULSE 78; RESP 16; TEMP 36.7; O2SAT 94
[2023-08-14 09:40] LABS: Glucometer 101 mg/dL (74-106)
[2023-08-14] MEDS: BUPIVACAINE HCL 0.25% PF 25 MG/10 ML VIAL INJ (10:09)
[2023-08-14 10:11] VITALS: BP 176/100; BP 183/86; PULSE 72; PULSE 78; RESP 18; O2SAT 92
--- NOTE | 2023-08-14 14:48 | P.ON_ITS ---
Date of procedure: 08/14/23 Pre-op diagnosis: Lumbar Spondylosis Post-op diagnosis: same as pre-op Procedure: Bilateral lumbar 4/5, 5/sacral 1 medial branch block Under fluoroscopic guidance Solution injected: 2millilitersMarcaine 0.25% Anesthesia :none Immediate complications none Time out process compliant After informed consent obtained from the patient placed in the Prone proposition . area was prepped and draped in a sterile fashion using Cloraprep .25 gauge spinal needle inserted over each of the above mentioned target areas . [place] were directed towards the target under fluoroscopic guidance . after encountering each of the targets , no indication of intravascular intraneuronal or intrathecal needle tip placement. Then 0 .5 to 1 Milliliter was injected at each level. [place] removed postoperatively. patient transferred to recovery in stable condition to be discharged home after meeting criteria Anesthesia: Local Surgeon: Temo Sharp Condition: stable
== END 2023-08-14 10:24 | disposition home or self-care (01) ==
LOC: SURGOUT 08:45
PROVIDERS: PCP Nurse Practitioner; Visit Provider Anesthesiology Pain Medicine
DX: M47.816 Spondylosis without myelopathy or radiculopathy, lumbar region (principal); Z79.4 Long term (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
CPT/HCPCS: 36415; 64493; 64494; 82948; J0665

== ENCOUNTER 2023-08-22 13:13 | Outpatient (OUT) | payer MEDICARE, OTHER, SELFPAY ==
--- NOTE | 2023-08-22 13:33 | PM.CN ---
Consult Note: HPI Data of Consult Patient: known to practice within the last 3 years Requesting Physician: Angela Cochran NP Primary Care Provider: Mckayla Blas NP Consult Narrative Reason for consult: f/u Narrative: Mitzi Macias a pleasant 52 year old female presents for evaluation and management of low back and right hip pain. Today pain 8/10. Describes it as an aching pain in low back, sharp in right hip, pain increased with standing, walking, transitioning, stairs. Tolerating current medication regimen well without side effects. Recently underwent bilateral L4-5 L5-S1 MBB #2 with 80% immediate relief and functional improvement which lasted a few hours. cc:: CC: Angela Cochran NP Review of Systems ROS Status of ROS 10 or more systems reviewed and unremarkable except as noted in history and below Musculoskeletal Reports: back pain and joint pain PFSH PFSH Medical History Acid reflux ?K21.9 - Gastro-esophageal reflux disease without esophagitis (ICD-10) Amputation toe ?S98.139A - Complete traumatic amputation of one unspecified lesser toe, initial encounter (ICD-10) Asthma ?J45.909 - Unspecified asthma, uncomplicated (ICD-10) COPD (chronic obstructive pulmonary disease) ?J44.9 - Chronic obstructive pulmonary disease, unspecified (ICD-10) Diabetes ?E11.9 - Type 2 diabetes mellitus without complications (ICD-10) High cholesterol ?E78.00 - Pure hypercholesterolemia, unspecified (ICD-10) Neuropathy ?G62.9 - Polyneuropathy, unspecified (ICD-10) Surgical History History of hammertoe correction ?Z98.890 - Other specified postprocedural states (ICD-10) ?Z87.39 - Personal history of other diseases of the musculoskeletal system and connective tissue (ICD-10) Hx of cholecystectomy ?Z90.49 - Acquired absence of other specified parts of digestive tract (ICD-10) History of hysterectomy ?Z90.710 - Acquired absence of both cervix and uterus (ICD-10) Meds Home Medications and Allergies Home Medications Medication Instructions Recorded Confirmed Type acetaminophen 500 mg capsule 1,000 mg PO Q6H PRN fever or pain 03/20/23 08/14/23 History amitriptyline 25 mg tablet 25 mg PO DAILY 03/20/23 08/14/23 History aspirin 81 mg tablet,delayed 81 mg PO DAILY 03/20/23 08/14/23 History release (Adult Aspirin Regimen) budesonide-formoterol HFA 160 2 inh inhalation BID 03/20/23 08/14/23 History mcg-4.5 mcg/actuation aerosol inhaler (Symbicort) diclofenac sodium 75 mg 75 mg PO BID 03/20/23 08/14/23 History tablet,delayed release dulaglutide 3 mg/0.5 mL 3 mg subcut QWEEK 03/20/23 08/14/23 [facility] duloxetine 60 mg capsule,delayed 60 mg PO DAILY 03/20/23 08/14/23 History release furosemide 40 mg tablet 40 mg PO DAILY 03/20/23 08/14/23 History hydrocodone 5 mg-acetaminophen 325 1 tab PO TID 03/20/23 08/14/23 History mg tablet insulin aspart U-100 100 unit/mL 1 sliding scale dose subcut 03/20/23 08/14/23 History (3 mL) subcutaneous pen (Novolog USEASDIRECTD FlexPen U-100 Insulin aspart) insulin glargine 100 unit/mL 58 unit subcut BID 03/20/23 08/14/23 History subcutaneous solution (Lantus U-100 Insulin) lisinopril 20 mg tablet 20 mg PO DAILY 03/20/23 08/14/23 History omeprazole 20 mg capsule,delayed 20 mg PO DAILY 03/20/23 08/14/23 History release pregabalin 300 mg capsule 300 mg PO Q12H 03/20/23 08/14/23 History tiotropium bromide 2.5 2 inh inhalation DAILY 03/20/23 08/14/23 History mcg/actuation mist for inhalation (Spiriva Respimat) hydrocodone 5 mg-acetaminophen 325 1 tab PO TID PRN pain #90 tabs 03/26/23 08/14/23 Rx mg tablet duloxetine 60 mg capsule,delayed 60 mg PO BID #60 caps 04/05/23 08/14/23 Rx release hydrocodone 5 mg-acetaminophen 325 1 tab PO TID PRN pain #90 tabs 04/20/23 08/14/23 Rx mg tablet hydrocodone 5 mg-acetaminophen 325 1 tab PO TID PRN pain #90 tabs 06/04/23 08/14/23 Rx mg tablet hydrocodone 5 mg-acetaminophen 325 1 tab PO TID PRN pain #90 tabs 06/20/23 08/14/23 Rx mg tablet hydrocodone 5 mg-acetaminophen 325 1 tab PO TID PRN pain #90 tabs 07/31/23 08/14/23 Rx mg tablet Allergies Allergy/AdvReac Type Severity Reaction Status Date / Time No Known Drug Allergies Allergy Verified 08/14/23 09:37 Exam Constitutional Documenting provider has reviewed patient's vital signs: yes Common normals: no apparent distress, oriented x3, healthy appearing, alert and well nourished General appearance: cooperative HENMT Common normals: normocephalic, hearing grossly normal bilaterally and moist oral mucous membranes Head and scalp: normocephalic Eye Common normals: PERRL Pupil: PERRL Neck & C-Spine Common normals: full ROM General: normal visual inspection Chest Common normals: inspection of chest normal Respiratory Common normals: normal respiratory effort, no retractions and no use of accessory muscles Back & Pelvis Thoracic spine/upper back: ROM limited and pain with ROM Lumbar spine/lower back: ROM limited and pain with ROM Other: bilateral hip pain right> left bilateral facet loading pain over l4-5 l5-s1 facets Extremity Common normals: normal to inspection Neuro Common normals: oriented x3, CN's II-XII intact bilaterally, moves all extremities, no focal motor deficits, no sensory deficits noted and deep tendon reflexes 2+ bilaterally Sensorium/orientation: alert Gait (neuro): assistive device used other (wheelchair) Motor exam: strength 5/5 throughout and no movement abnormalities noted Psych Common normals: mental status grossly normal, thought process normal, cooperative, affect normal, speech normal and activity/motor behavior normal Speech: normal speech Thought process: normal thought process Results Additional Findings Additional findings: I have checked an OAR[place] report on this patient today and there are no aberrancies noted in the prescribing history.?? A drug screen was completed and reviewed within the last year, and if there has not been a drug screen completed we ordered one today to monitor higher risk, state monitored pain medication use. As part of providing excellent, safe, comprehensive care, the following was completed at our patient's visit: 1. A medication reconciliation and review to ensure accurate knowledge of current/active medications, including asking our patients to inform us about any [id number] medications or herbal remedies/nutritional supplements/alternative remedies. 2. A review to specifically ensure our patients have had annual screening for: elevated body mass index (BMI), tobacco use, screening for depression, and screening for unhealthy alcohol use. When screening is concerning, patients are provided with education and the specific recommendation to discuss the concerning health issue and treatment options with their primary care provider. Assessment and Plan Assessment and Plan (1) Lumbar spondylosis: Assessment and Plan: The patient has had over 3 months of moderate to severe low back pain with functional impairment and inadequate response to conservative care including NSAIDS (unless there are contraindication such as concurrent blood thinners), multiple oral or topical pain medications, and home exercise program/physical therapy.? Patient has completed >6 weeks of guided home exercise program and/or formal physical therapy program without relief of their symptoms.? I have reviewed the imaging of the lumbar spine and no red flags were identified.? The imaging reveals radiographic findings consistent with lumbar spondylosis The Oswestry Disability Index was completed, and the patient scored a 52%.? We discussed the risks and benefits of the procedure with the patient, and we are NOT planning on using sedation as outlined in the guidelines from Medicare unless there is a documented reason that sedation would be strongly recommended.?? ?The procedure will be completed with fluoroscopic guidance.? (2) Chronic pain syndrome: (3) Osteoarthritis: Qualifiers: Osteoarthritis location: unspecified site Osteoarthritis type: unspecified Qualified Code(s): M19.90 - Unspecified osteoarthritis, unspecified site (4) Hypertension: Assessment and Plan: Blood pressure is elevated today. No signs or symptoms of CT/CVA including chest pain, SOB, left sided acute neck, arm, or jaw pain (separate from chronic pain complaint), diaphoresis, facial drooping, new acute neuro changes in both upper and lower extremities (other than those mentioned in the note above). Recommend follow up with PCP for further evaluation and treatment.? Qualifiers: Hypertension type: unspecified Qualified Code(s): I10 - Essential (primary) hypertension (5) Obesity: Assessment and Plan: The patient was counseled that proper dietary changes and consistent participation in a home exercise plan can lead to weight loss. Weight loss can help to improve functionality in patients with chronic pain.? Qualifiers: Obesity type: unspecified obesity type Obesity classification: unspecified obesity classification Serious obesity comorbidity presence: unspecified whether serious comorbidity present Qualified Code(s): E66.9 - Obesity, unspecified (6) Chronic prescription opiate use: Assessment and Plan: I feel these medications are improving the patient's quality of life and allow them to tolerate activities of daily living as well as participate in recreational activity.? The patient does not report intolerable side effects. The patient is NOT opioid naive and non-pharmacologic and non-opioid treatment has failed to significantly relieve the patient's pain and improve functionality. The patient has a diagnosis that is related to a somatic or visceral pain etiology. ? ?? I reviewed with the patient the potential risks and side effects with the use of? opioid medications including but not limited to respiratory depression,? sedation, and even . I verified the patient has access to naloxone should? these effects occur. I advised the patient to avoid the use of any other? sedation substances including alcohol, THC, and benzodiazepines while? taking opioid medications due to the risk of compounding side effects and? detrimental outcomes. I reviewed the STUDIO ARTIST, pain treatment agreement, urine? drug screen, and opioid start talking forms. The patient was advised to let? their family know they had Naloxone in case they would need to administer? the medication.? ?? A drug screen was completed within the last year, and no aberrancies were noted regarding their use of controlled substances. The patient understands they are subject to the terms and conditions of the pain contract that they have signed. ? ?? I have checked an OARRS report on this patient today and there are no aberrancies noted in the prescribing history.? (7) Osteoarthritis of hip: Qualifiers: Osteoarthritis type: unspecified Laterality: unspecified laterality Qualified Code(s): M16.9 - Osteoarthritis of hip, unspecified (8) Chronic right hip pain: Plan bilateral L4-5 L5-S1 facet medial branch thermal RFA under fluoroscopy continue HEP as tolerated continue current medications, tolerating well without side effects. risks vs benefits discussed. narcan previously prescribed in the past, non surgical for right hip OA due to obesity, patient now seeking a second opinion f/u 1 month after RFA
== END 2023-08-22 13:14 | disposition home or self-care (01) ==
LOC: PM 13:15
PROVIDERS: PCP Nurse Practitioner; Visit Provider Nurse Practitioner
DX: M47.816 Spondylosis without myelopathy or radiculopathy, lumbar region (principal); G89.4 Chronic pain syndrome; M19.90 Unspecified osteoarthritis, unspecified site; I10 Essential (primary) hypertension; E66.9 Obesity, unspecified; Z79.891 Long term (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 opiate analgesic; M16.9 Osteoarthritis of hip, unspecified
CPT/HCPCS: G0463

== ENCOUNTER 2023-08-31 17:58 | Inpatient (IN) | payer MEDICARE, OTHER, SELFPAY ==
[2023-08-31] VITALS (31 sets, daily range): BP systolic 130–182; BP diastolic 66–88; PULSE 95–114; RESP 15–26; TEMP 37.4–39.4; O2SAT 90–97; BMI 56.4; BMI 59.2
--- NOTE | 2023-08-31 18:03 | ECG_ITS ---
[facility] Test Date: 2023-08-31 Pat Name: SINA NICHOLE Department: Room: - Gender: Female Senior Category Manager: : 1970 Requested By: LUIS M CHAND Order Number: [id number] Reading MD: FELIZ IDOR Measurements Intervals [place] Rate: 102 P: 67 MI: 144 QRS: 52 QRSD: 72 T: 49 QT: 326 QTc: 385 Interpretive Statements 1120 Sinus tachycardia 4068 Nonspecific Twave abnormality 8102 Low QRS voltage in chest leads 9140 abnormal rhythm ECG Compared to ECG 12/04/2022 21:27:48 Electronically Signed On 09-02-2023 7:31:43 EST by FELIZ DIOR
--- NOTE | 2023-08-31 18:04 | CT_ITS ---
The [address] [address] Patient Name: SINA NICHOLE MRN: [id number] date: 1970 Sex: F Assigned Patient Location: ER Current Patient Location: ED.MAIN Accession/Order Number: [id number] Exam Date: 08/31/2023 18:32 Report Date: 08/31/2023 19:46 At the request of: ANTONY INGRAM Procedure: CT angio chest EXAM: CT angio chest HISTORY: sob clinical suspicion of pulmonary embolus. COMPARISON: 12/04/2022 and earlier TECHNIQUE: CTA chest pulmonary embolus protocol including axial images and coronal and sagittal 3-D and MIP images. Contrast: 100 mL Omnipaque 350 IV FINDINGS: Pulmonary arteries: Pulmonary artery enhancement homogeneous proximal arteries without thrombus or embolus. Somewhat limited enhancement is smaller distal vessels but no definite thrombus or embolus seen. Pulmonary artery dilated consistent with pulmonary artery increased pressure unchanged. Aortic vascular: Normal size enhancement aorta. Mildly prominent cardiac silhouette unchanged. No pericardial effusion. LUNGS: Mild groundglass density left lung upper lobe in a somewhat different distribution than previous question mild pneumonitis. No dense consolidation. No suspicious focal lung lesion. Basilar atelectasis bilateral. Pleura: No effusion or pneumothorax. Mediastinum: No mass or adenopathy. Lymph nodes have decreased in size compared to previous. No lower neck or axillary mass or adenopathy. No acute upper abdominal pathology. 3.6 cm diameter left adrenal nodule consistent with myelolipoma unchanged. CT/CT angio chest IMPRESSION: 1. Negative for pulmonary artery thrombus or embolus although somewhat limited enhancement of smaller distal vessels. Dilated pulmonary outflow tract unchanged. 2. There is a mild patchy groundglass density left lung likely inflammatory, correlate for pneumonitis. 3. No significant mediastinal adenopathy. Previously noted lymph nodes have decreased in size. Electronically authenticated by: KASIA FRANK Date: 08/31/2023 19:46
--- NOTE | 2023-08-31 18:13 | ED_ITS ---
<Statement entered by Price Ramirez MD - 09/04/23 08:45> This documentation has been reviewed and approved. Patient was seen and evaluated by TALIB Mccarty and Dr Lucas, not by Dr Ramirez. Documented by User: Andra Alcala 08/31/23 20:16 HPI - General Adult General Chief complaint: Shortness of Breath/Dyspnea Stated complaint: Shortness of Breath Time Seen by Provider: 08/31/23 18:03 Source: patient Mode of arrival: ambulance Limitations: no limitations History of Present Illness HPI narrative: 53-year-old female presents here with chief complaint of weakness, shortness of breath. Patient is obese, weighs 500 plus lbs. Patient was found in the bathroom, complaining of weakness and shortness of breath. Squad was called for weakness. Patient's oxygen was initially low at 89 they placed her on nonrebreather prior to arrival. Patient is alert. pt states she has had chest pain on and off for the last past several hours. past medical history includes obesity, hypertension and osteoarthritis. chronic pitting edema to bilateral lower extremities. Related Data Home Medications Medication Instructions Recorded Confirmed acetaminophen 500 mg capsule 1,000 mg PO Q6H PRN fever or pain 03/20/23 08/14/23 amitriptyline 25 mg tablet 25 mg PO DAILY 03/20/23 08/31/23 aspirin 81 mg tablet,delayed 81 mg PO DAILY 03/20/23 08/31/23 release (Adult Aspirin Regimen) budesonide-formoterol HFA 160 2 inh inhalation BID 03/20/23 08/31/23 mcg-4.5 mcg/actuation aerosol inhaler (Symbicort) diclofenac sodium 75 mg 75 mg PO BID 03/20/23 08/31/23 tablet,delayed release dulaglutide 3 mg/0.5 mL 3 mg subcut QWEEK 03/20/23 08/31/23 subcutaneous pen injector (Trulicity) furosemide 40 mg tablet 40 mg PO DAILY 03/20/23 08/31/23 hydrocodone 5 mg-acetaminophen 325 1 tab PO TID 03/20/23 08/14/23 mg tablet insulin aspart U-100 100 unit/mL 1 sliding scale dose subcut 03/20/23 08/31/23 (3 mL) subcutaneous pen (Novolog USEASDIRECTD FlexPen U-100 Insulin aspart) insulin glargine 100 unit/mL 58 unit subcut BID 03/20/23 08/31/23 subcutaneous solution (Lantus U-100 Insulin) lisinopril 20 mg tablet 20 mg PO DAILY 03/20/23 08/31/23 omeprazole 20 mg capsule,delayed 20 mg PO DAILY 03/20/23 08/31/23 release pregabalin 300 mg capsule 300 mg PO Q12H 03/20/23 08/31/23 tiotropium bromide 2.5 2 inh inhalation DAILY 03/20/23 08/31/23 mcg/actuation mist for inhalation (Spiriva Respimat) Previous Rx's Medication Instructions Recorded hydrocodone 5 mg-acetaminophen 325 1 tab PO TID PRN pain #90 tabs 03/26/23 mg tablet duloxetine 60 mg capsule,delayed 60 mg PO BID #60 caps 04/05/23 release hydrocodone 5 mg-acetaminophen 325 1 tab PO TID PRN pain #90 tabs 04/20/23 mg tablet hydrocodone 5 mg-acetaminophen 325 1 tab PO TID PRN pain #90 tabs 06/04/23 mg tablet hydrocodone 5 mg-acetaminophen 325 1 tab PO TID PRN pain #90 tabs 06/20/23 mg tablet hydrocodone 5 mg-acetaminophen 325 1 tab PO TID PRN pain #90 tabs 07/31/23 mg tablet Allergies Allergy/AdvReac Type Severity Reaction Status Date / Time No Known Drug Allergies Allergy Verified 08/14/23 09:37 Review of Systems ROS Narrative All Systems are negative except as noted/marked. PFSH [facility] Medical History Acid reflux ?K21.9 - Gastro-esophageal reflux disease without esophagitis (ICD-10) Amputation toe ?S98.139A - Complete traumatic amputation of one unspecified lesser toe, initial encounter (ICD-10) Asthma ?J45.909 - Unspecified asthma, uncomplicated (ICD-10) COPD (chronic obstructive pulmonary disease) ?J44.9 - Chronic obstructive pulmonary disease, unspecified (ICD-10) Diabetes ?E11.9 - Type 2 diabetes mellitus without complications (ICD-10) High cholesterol ?E78.00 - Pure hypercholesterolemia, unspecified (ICD-10) Neuropathy ?G62.9 - Polyneuropathy, unspecified (ICD-10) Surgical History History of hammertoe correction ?Z98.890 - Other specified postprocedural states (ICD-10) ?Z87.39 - Personal history of other diseases of the musculoskeletal system and connective tissue (ICD-10) Hx of cholecystectomy ?Z90.49 - Acquired absence of other specified parts of digestive tract (ICD- 10) History of hysterectomy ?Z90.710 - Acquired absence of both cervix and uterus (ICD-10) Social History Smoking status: Current some day smoker Exam Narrative Exam Narrative: Nurses note and vital signs reviewed and patient is hypoxic. General: The patient appears well and in no apparent distress. Patient is resting comfortably on cart. Skin: Warm, dry, no pallor noted. There is no rash noted. Head: Normocephalic, atraumatic Eye: Normal conjunctiva, no drainage, EOMI. PERRL Ears, Nose, Mouth, and Throat: oral mucosa is moist. Nares patent. Mouth without vesicles. Ear canals patent. Tm's without Erythema Cardiovascular: Regular Rate and Rhythm Respiratory: Patient is in no distress, no accessory muscle use, lungs are clear to auscultation, no wheezing, rales or rhonchi Back: non-tender, no CVA tenderness bilaterally to percussion. GI: Obese, large pannus, Normal bowel sounds, no tenderness to palpation, no masses appreciated. No rebound, guarding, or rigidity noted. Musculoskeletal: bilateral Lower extremity edema, patient has no evidence of calf tenderness, no pitting edema, symmetrical pulses noted bilaterally Neurological: A&O x4, normal speech Psychiatric: Cooperative Constitutional Vital Signs, click to edit/add: Last Vital Signs Temp 99.3 F 08/31/23 19:56 Pulse 100 H 08/31/23 20:10 Resp 20 08/31/23 20:10 BP 163/67 H 08/31/23 20:00 Pulse Ox 93 L 08/31/23 20:10 O2 Del Method Nasal Cannula 08/31/23 19:42 O2 Flow Rate 4 08/31/23 19:42 Course Vital Signs Vital signs: Vital Signs Temperature 103.0 F H 08/31/23 18:00 Pulse Rate 114 H 08/31/23 18:00 Respiratory Rate 26 H 08/31/23 18:00 Blood Pressure 164/85 H 08/31/23 18:00 Pulse Oximetry 90 L 08/31/23 18:00 Oxygen Delivery Method Nasal Cannula 08/31/23 18:00 Oxygen Delivery Flow Rate 2 08/31/23 18:00 Temperature 99.3 F 08/31/23 19:56 Pulse Rate 100 H 08/31/23 20:10 Respiratory Rate 20 08/31/23 20:10 Blood Pressure 163/67 H 08/31/23 20:00 Pulse Oximetry 93 L 08/31/23 20:10 Oxygen Delivery Method Nasal Cannula 08/31/23 19:42 Oxygen Delivery Flow Rate 4 08/31/23 19:42 Medical Decision Making MDM Narrative Medical decision making narrative: 53-year-old female presents here with chief complaint of weakness, shortness of breath. Patient is obese, weighs 500 plus lbs. Patient was found in the bathroom, complaining of weakness and shortness of breath. Squad was called for weakness. Patient's oxygen was initially low at 89 they placed her on nonrebreather prior to arrival. Patient is alert. pt states she has had chest pain on and off for the last past several hours. past medical history includes obesity, hypertension and osteoarthritis. chronic pitting edema to bilateral lower extremities. Chief complaint of shortness of breath and weakness. CBC BNP BMP and lactic acid were drawn. Patient does have an elevated white cell count of 22,000 with a left shift. Patient had a CT scan because she was hypoxic upon arrival here to the emergency room. CT scan showed no acute pulmonary emboli. Reading is below questionable for pneumonitis no acute pneumonia. Patient initially had an elevated lactic acid 2.4 initially given IV fluids 1 L repeat lactic acid is 2.2. Patient was febrile also upon arrival his had 103 ?F. Repeat after medication with Tylenol fluids is 99.3. This time. Patient agrees to admission. I did speak to Petty Blake the [employer] on-call. She agrees for admission. Patient admitted to [facility] floor on telemetry. Patient has been given IV fluids as well as IV antibiotics here in emergency room. She is currently stable. Differential Diagnosis Differential Diagnosis: pneumonia, copd, uti Medical Records Medical records reviewed: Yes I reviewed the patient's medical records Lab Data Lab results reviewed: Yes I reviewed the patient's lab results Labs: Lab Results 08/31/23 08/31/23 Range/Units 18:12 18:49 WBC 22.3 H (4.0-11.0) 10^3/uL RBC 5.64 H (4.20-5.40) 10^6/uL Hgb 16.4 H (12.0-16.0) g/dL Hct 51.6 H (36.0-48.0) % MCV 91.5 (81.0-99.0) fL MCH 29.1 (26.7-34.0) pg MCHC 31.8 (29.9-35.2) g/dL RDW 14.4 (11.0-15.0) % Plt Count 148 L (150-450) 10^3/uL MPV 13.9 H (9.5-13.5) fL Neut % (Auto) 88.3 H (43.0-75.0) % Lymph % (Auto) 5.9 L (20.5-60.0) % [place] % (Auto) 4.5 (1.7-12.0) % Eos % (Auto) 0.5 L (0.9-7.0) % Baso % (Auto) 0.3 (0.2-2.0) % Neut # (Auto) 19.7 H (1.4-6.5) 10^3/uL Lymph # (Auto) 1.3 (1.2-3.8) 10^3/uL [place] # (Auto) 1.0 H (0.3-0.8) 10^3/uL Eos # (Auto) 0.1 (0.0-0.7) 10^3/uL Baso # (Auto) 0.1 (0.0-0.1) 10^3/uL Abs Immat Gran (auto) 0.12 H (0.00-0.03) 10^3/uL Imm/Tot Granulo (auto) 0.5 (0.0-0.5) % PT 10.0 (9.0-11.6) sec INR 0.94 Sodium 131 L (136-145) mmol/L Potassium 3.8 (3.5-5.1) mmol/L Chloride 97 L (98-107) mmol/L Carbon Dioxide 28.9 (21.0-32.0) mmol/L Anion Gap 8.9 BUN 14.0 (7.0-18.0) mg/dL Creatinine 0.75 (0.55-1.02) mg/dL Est GFR ( Amer) >60 (>=60) Est GFR (Non-Af Amer) >60 (>=60) BUN/Creatinine Ratio 18.7 Glucose 271 H (74-106) mg/dL Lactate 2.4 H* 2.2 H* (0.4-2.0) mmol/L Calcium 8.2 L (8.5-10.1) mg/dL Total Bilirubin 0.6 (0.2-1.0) mg/dL AST 17 (15-37) U/L ALT 16 (14-59) U/L Alkaline Phosphatase 69 (46-116) U/L Troponin I High Sens 15.5 (4.0-51.3) pg/mL NT-Pro-B Natriuret Pep 267.0 (<=900.0) pg/mL Total Protein 6.5 (6.4-8.2) g/dL Albumin 2.6 L (3.4-5.0) g/dL Globulin 3.9 g/dL Albumin/Globulin Ratio 0.7 Adenovirus (PCR) Not detected (NOT DETECTE) C. pneumoniae DNA (PCR) Not detected (NOT DETECTE) Coronavirus Type OC43 Not detected (NOT DETECTE) Coronavirus Type HKU1 Not detected (NOT DETECTE) Coronavirus Type 229E Not detected (NOT DETECTE) Coronavirus Type NL63 Not detected (NOT DETECTE) Human Metapneumovir PCR Not detected (NOT DETECTE) M. pneumoniae (PCR) Not detected (NOT DETECTE) Parainfluenza PCR Not detected (NOT DETECTE) Parainfluenza 2 (PCR) Not detected (NOT DETECTE) Parainfluenza 3 (PCR) Not detected (NOT DETECTE) Parainfluenza 4 (PCR) Not detected (NOT DETECTE) RSV (RT-PCR) Not detected (NOT DETECTE) Entero/Rhino (PCR) Not detected (NOT DETECTE) SARS-CoV-2 (PCR) Not detected (NOT DETECTE) Bordetella pertussis (PCR) Not detected (NOT DETECTE) B parapertussis DNA PCR Not detected (NOT DETECTE) Influenza Type A (PCR) Not detected (NOT DETECTE) Influenza Type B (PCR) Not detected (NOT DETECTE) Imaging Data CT scan - chest: Radiologist's impression: ITS Impressions Chest CTA 08/31/23 18:04 IMPRESSION: 1. Negative for pulmonary artery thrombus or embolus although somewhat limited enhancement of smaller distal vessels. Dilated pulmonary outflow tract unchanged. 2. There is a mild patchy groundglass density left lung likely inflammatory, correlate for pneumonitis. 3. No significant mediastinal adenopathy. Previously noted lymph nodes have decreased in size. Electronically authenticated by: KASIA FRANK Date: 08/31/2023 19:46 ECG Data Interpretation: 1808 sinus tachycardia rate 102 bpm, ID interval 144 ms, QRS duration 72 ms, no STEMI Discharge Plan Discharge Chief Complaint: Shortness of Breath/Dyspnea Clinical Impression: Severe sepsis, Osteoarthritis, Obesity, Shortness of breath, Hyponatremia, Hypoxia Patient Disposition: Admitted As Inpatient Time of Disposition Decision: 20:10 Condition: Fair Documented by User: Sly Lucas 08/31/23 20:25 HPI - General Adult General Chief complaint: Shortness of Breath/Dyspnea Stated complaint: Shortness of Breath Time Seen by Provider: 08/31/23 18:03 Related Data Home Medications Medication Instructions Recorded Confirmed acetaminophen 500 mg capsule 1,000 mg PO Q6H PRN fever or pain 03/20/23 08/14/23 amitriptyline 25 mg tablet 25 mg PO DAILY 03/20/23 08/31/23 aspirin 81 mg tablet,delayed 81 mg PO DAILY 03/20/23 08/31/23 release (Adult Aspirin Regimen) budesonide-formoterol HFA 160 2 inh inhalation BID 03/20/23 08/31/23 mcg-4.5 mcg/actuation aerosol inhaler (Symbicort) diclofenac sodium 75 mg 75 mg PO BID 03/20/23 08/31/23 tablet,delayed release dulaglutide 3 mg/0.5 mL 3 mg subcut QWEEK 03/20/23 08/31/23 subcutaneous pen injector (Trulicity) furosemide 40 mg tablet 40 mg PO DAILY 03/20/23 08/31/23 hydrocodone 5 mg-acetaminophen 325 1 tab PO TID 03/20/23 08/14/23 mg tablet insulin aspart U-100 100 unit/mL 1 sliding scale dose subcut 03/20/23 08/31/23 (3 mL) subcutaneous pen (Novolog USEASDIRECTD FlexPen U-100 Insulin aspart) insulin glargine 100 unit/mL 58 unit subcut BID 03/20/23 08/31/23 subcutaneous solution (Lantus U-100 Insulin) lisinopril 20 mg tablet 20 mg PO DAILY 03/20/23 08/31/23 omeprazole 20 mg capsule,delayed 20 mg PO DAILY 03/20/23 08/31/23 release pregabalin 300 mg capsule 300 mg PO Q12H 03/20/23 08/31/23 tiotropium bromide 2.5 2 inh inhalation DAILY 03/20/23 08/31/23 mcg/actuation mist for inhalation (Spiriva Respimat) Previous Rx's Medication Instructions Recorded hydrocodone 5 mg-acetaminophen 325 1 tab PO TID PRN pain #90 tabs 03/26/23 mg tablet duloxetine 60 mg capsule,delayed 60 mg PO BID #60 caps 04/05/23 release hydrocodone 5 mg-acetaminophen 325 1 tab PO TID PRN pain #90 tabs 04/20/23 mg tablet hydrocodone 5 mg-acetaminophen 325 1 tab PO TID PRN pain #90 tabs 06/04/23 mg tablet hydrocodone 5 mg-acetaminophen 325 1 tab PO TID PRN pain #90 tabs 06/20/23 mg tablet hydrocodone 5 mg-acetaminophen 325 1 tab PO TID PRN pain #90 tabs 07/31/23 mg tablet Allergies Allergy/AdvReac Type Severity Reaction Status Date / Time No Known Drug Allergies Allergy Verified 08/14/23 09:37 [facility] Medical History Acid reflux ?K21.9 - Gastro-esophageal reflux disease without esophagitis (ICD-10) Amputation toe ?S98.139A - Complete traumatic amputation of one unspecified lesser toe, initial encounter (ICD-10) Asthma ?J45.909 - Unspecified asthma, uncomplicated (ICD-10) COPD (chronic obstructive pulmonary disease) ?J44.9 - Chronic obstructive pulmonary disease, unspecified (ICD-10) Diabetes ?E11.9 - Type 2 diabetes mellitus without complications (ICD-10) High cholesterol ?E78.00 - Pure hypercholesterolemia, unspecified (ICD-10) Neuropathy ?G62.9 - Polyneuropathy, unspecified (ICD-10) Surgical History History of hammertoe correction ?Z98.890 - Other specified postprocedural states (ICD-10) ?Z87.39 - Personal history of other diseases of the musculoskeletal system and connective tissue (ICD-10) Hx of cholecystectomy ?Z90.49 - Acquired absence of other specified parts of digestive tract (ICD- 10) History of hysterectomy ?Z90.710 - Acquired absence of both cervix and uterus (ICD-10) Social History Smoking status: Current some day smoker Exam Constitutional Vital Signs, click to edit/add: Last Vital Signs Temp 99.3 F 08/31/23 19:56 Pulse 100 H 08/31/23 20:10 Resp 20 08/31/23 20:10 BP 163/67 H 08/31/23 20:00 Pulse Ox 93 L 08/31/23 20:10 O2 Del Method Nasal Cannula 08/31/23 19:42 O2 Flow Rate 4 08/31/23 19:42 Course Vital Signs Vital signs: Vital Signs Temperature 103.0 F H 08/31/23 18:00 Pulse Rate 114 H 08/31/23 18:00 Respiratory Rate 26 H 08/31/23 18:00 Blood Pressure 164/85 H 08/31/23 18:00 Pulse Oximetry 90 L 08/31/23 18:00 Oxygen Delivery Method Nasal Cannula 08/31/23 18:00 Oxygen Delivery Flow Rate 2 08/31/23 18:00 Temperature 99.3 F 08/31/23 19:56 Pulse Rate 100 H 08/31/23 20:10 Respiratory Rate 20 08/31/23 20:10 Blood Pressure 163/67 H 08/31/23 20:00 Pulse Oximetry 93 L 08/31/23 20:10 Oxygen Delivery Method Nasal Cannula 08/31/23 19:42 Oxygen Delivery Flow Rate 4 08/31/23 19:42 Medical Decision Making MDM Narrative Medical decision making narrative: 53-year-old female presents here with chief complaint of weakness, shortness of breath. Patient is obese, weighs 500 plus lbs. Patient was found in the bathroom, complaining of weakness and shortness of breath. Squad was called for weakness. Patient's oxygen was initially low at 89 they placed her on nonrebreather prior to arrival. Patient is alert. pt states she has had chest pain on and off for the last past several hours. past medical history includes obesity, hypertension and osteoarthritis. chronic pitting edema to bilateral lower extremities. Chief complaint of shortness of breath and weakness. CBC BNP BMP and lactic acid were drawn. Patient does have an elevated white cell count of 22,000 with a left shift. Patient had a CT scan because she was hypoxic upon arrival here to the emergency room. CT scan showed no acute pulmonary emboli. Reading is below questionable for pneumonitis no acute pneumonia. Patient initially had an elevated lactic acid 2.4 initially given IV fluids 1 L repeat lactic acid is 2.2. Patient was febrile also upon arrival his had 103 ?F. Repeat after medication with Tylenol fluids is 99.3. This time. Patient agrees to admission. I did speak to Petty Blake the [employer] WORK[employer] HELPER on-call. She agrees for admission. Patient admitted to [facility] floor on telemetry. Patient has been given IV fluids as well as IV antibiotics here in emergency room. She is currently stable. Attending physician note -I saw and examined the patient. She has elevated WBC and lactate consistent withs evere sepsis. Suspect pulmonary etiology. Resp panel negative. CTA chest without PE, ground glass changes in [place] changes = ?Infiltrate?. Patient already ordered by Dr Ramirez to receive IV Zosyn and IV Vanc. I directed the PA to give the patient IV Solumedrol and duoneb treatment. On recheck she had better air exchenage and less wheezing. She is on 5LPM NC O2 due to hypoxia. Patient admitted CLINICAL IMPRESSION - severe sepsis, COPD exacerbation, hypoxia For this patient encounter I reviewed the mid-level provider?s documentation, medical decision-making and treatment plan, and I personally spent time with this patient. Shared APC visit, physician attestation: [id number]: This visit was performed by both a physician and an APC. I personally evaluated and examined the patient. I performed all aspects of MDM as documented. - DO Yudi Lab Data Labs: Lab Results 08/31/23 08/31/23 Range/Units 18:12 18:49 WBC 22.3 H (4.0-11.0) 10^3/uL RBC 5.64 H (4.20-5.40) 10^6/uL Hgb 16.4 H (12.0-16.0) g/dL Hct 51.6 H (36.0-48.0) % MCV 91.5 (81.0-99.0) fL MCH 29.1 (26.7-34.0) pg MCHC 31.8 (29.9-35.2) g/dL RDW 14.4 (11.0-15.0) % Plt Count 148 L (150-450) 10^3/uL MPV 13.9 H (9.5-13.5) fL Neut % (Auto) 88.3 H (43.0-75.0) % Lymph % (Auto) 5.9 L (20.5-60.0) % [place] % (Auto) 4.5 (1.7-12.0) % Eos % (Auto) 0.5 L (0.9-7.0) % Baso % (Auto) 0.3 (0.2-2.0) % Neut # (Auto) 19.7 H (1.4-6.5) 10^3/uL Lymph # (Auto) 1.3 (1.2-3.8) 10^3/uL [place] # (Auto) 1.0 H (0.3-0.8) 10^3/uL Eos # (Auto) 0.1 (0.0-0.7) 10^3/uL Baso # (Auto) 0.1 (0.0-0.1) 10^3/uL Abs Immat Gran (auto) 0.12 H (0.00-0.03) 10^3/uL Imm/Tot Granulo (auto) 0.5 (0.0-0.5) % PT 10.0 (9.0-11.6) sec INR 0.94 Sodium 131 L (136-145) mmol/L Potassium 3.8 (3.5-5.1) mmol/L Chloride 97 L (98-107) mmol/L Carbon Dioxide 28.9 (21.0-32.0) mmol/L Anion Gap 8.9 BUN 14.0 (7.0-18.0) mg/dL Creatinine 0.75 (0.55-1.02) mg/dL Est GFR ( Amer) >60 (>=60) Est GFR (Non-Af Amer) >60 (>=60) BUN/Creatinine Ratio 18.7 Glucose 271 H (74-106) mg/dL Lactate 2.4 H* 2.2 H* (0.4-2.0) mmol/L Calcium 8.2 L (8.5-10.1) mg/dL Total Bilirubin 0.6 (0.2-1.0) mg/dL AST 17 (15-37) U/L ALT 16 (14-59) U/L Alkaline Phosphatase 69 (46-116) U/L Troponin I High Sens 15.5 (4.0-51.3) pg/mL NT-Pro-B Natriuret Pep 267.0 (<=900.0) pg/mL Total Protein 6.5 (6.4-8.2) g/dL Albumin 2.6 L (3.4-5.0) g/dL Globulin 3.9 g/dL Albumin/Globulin Ratio 0.7 Adenovirus (PCR) Not detected (NOT DETECTE) C. pneumoniae DNA (PCR) Not detected (NOT DETECTE) Coronavirus Type OC43 Not detected (NOT DETECTE) Coronavirus Type HKU1 Not detected (NOT DETECTE) Coronavirus Type 229E Not detected (NOT DETECTE) Coronavirus Type NL63 Not detected (NOT DETECTE) Human Metapneumovir PCR Not detected (NOT DETECTE) M. pneumoniae (PCR) Not detected (NOT DETECTE) Parainfluenza PCR Not detected (NOT DETECTE) Parainfluenza 2 (PCR) Not detected (NOT DETECTE) Parainfluenza 3 (PCR) Not detected (NOT DETECTE) Parainfluenza 4 (PCR) Not detected (NOT DETECTE) RSV (RT-PCR) Not detected (NOT DETECTE) Entero/Rhino (PCR) Not detected (NOT DETECTE) SARS-CoV-2 (PCR) Not detected (NOT DETECTE) Bordetella pertussis (PCR) Not detected (NOT DETECTE) B parapertussis DNA PCR Not detected (NOT DETECTE) Influenza Type A (PCR) Not detected (NOT DETECTE) Influenza Type B (PCR) Not detected (NOT DETECTE) Imaging Data CT scan - chest: Radiologist's impression: ITS Impressions Chest CTA 08/31/23 18:04 IMPRESSION: 1. Negative for pulmonary artery thrombus or embolus although somewhat limited enhancement of smaller distal vessels. Dilated pulmonary outflow tract unchanged. 2. There is a mild patchy groundglass density left lung likely inflammatory, correlate for pneumonitis. 3. No significant mediastinal adenopathy. Previously noted lymph nodes have decreased in size. Electronically authenticated by: KASIA FRANK Date: 08/31/2023 19:46 Discharge Plan Discharge Chief Complaint: Shortness of Breath/Dyspnea Clinical Impression: Severe sepsis, Osteoarthritis, Obesity, Shortness of breath, Hyponatremia, Hypoxia Patient Disposition: Admitted As Inpatient Time of Disposition Decision: 20:10 Condition: Fair
[2023-08-31] MEDS: ACETAMINOPHEN 500 MG TABLET 1000 MG PO (18:17)
[2023-08-31] MEDS: 0.9 % SODIUM CHLORIDE 1,000 ML 1000 ML IV (18:17)
[2023-08-31 18:27] LABS: Basophils Absolute Auto 0.1 10^3/uL (0.0-0.1); Basophils Percent Auto 0.3 % (0.2-2.0); Eosinophils Absolute Auto 0.1 10^3/uL (0.0-0.7); Eosinophils Percent Auto 0.5 % (0.9-7.0); Hematocrit 51.6 % (36.0-48.0); Hemoglobin 16.4 g/dL (12.0-16.0); Immature Granulocytes Abs Auto 0.12 10^3/uL (0.00-0.03); Immature Granulocytes Pct Auto 0.5 % (0.0-0.5); Lymphocytes Absolute Auto 1.3 10^3/uL (1.2-3.8); Lymphocytes Percent Auto 5.9 % (20.5-60.0); Mean Corpuscular HGB Conc 31.8 g/dL (29.9-35.2); Mean Corpuscular Hemoglobin 29.1 pg (26.7-34.0); Mean Corpuscular Volume 91.5 fL (81.0-99.0); Mean Platelet Volume 13.9 fL (9.5-13.5); Monocytes Percent Auto 4.5 % (1.7-12.0); Neutrophils Absolute Auto 19.7 10^3/uL (1.4-6.5); Neutrophils Percent Auto 88.3 % (43.0-75.0); Platelet Count 148 10^3/uL (150-450); Red Blood Count 5.64 10^6/uL (4.20-5.40); Red Cell Distribution Width 14.4 % (11.0-15.0); White Blood Count 22.3 10^3/uL (4.0-11.0)
[2023-08-31 18:28] LABS: Adenovirus NOT DETECTED (NOT DETECTE); Bordetella parapertussis NOT DETECTED (NOT DETECTE); Coronavirus 229E NOT DETECTED (NOT DETECTE); Coronavirus HKU1 NOT DETECTED (NOT DETECTE); Coronavirus NL63 NOT DETECTED (NOT DETECTE); Coronavirus OC43 NOT DETECTED (NOT DETECTE); Human Metapneumovirus NOT DETECTED (NOT DETECTE); Human Rhinovirus/Enterovirus NOT DETECTED (NOT DETECTE); Influenza A NOT DETECTED (NOT DETECTE); Influenza B NOT DETECTED (NOT DETECTE); Mycoplasma pneumoniae NOT DETECTED (NOT DETECTE); Parainfluenza Virus 1 NOT DETECTED (NOT DETECTE); Parainfluenza Virus 2 NOT DETECTED (NOT DETECTE); Parainfluenza Virus 3 NOT DETECTED (NOT DETECTE); Parainfluenza Virus 4 NOT DETECTED (NOT DETECTE); Respiratory Syncytial Virus NOT DETECTED (NOT DETECTE); SARS-CoV-2 NOT DETECTED (NOT DETECTE)
[2023-08-31 18:40] LABS: INR 0.94
[2023-08-31 18:47] LABS: Lactate/Lactic Acid 2.4 mmol/L (0.4-2.0)
--- OUTSIDE RECORDS SUMMARY | 2023-08-31 19:05 | XMS_ITS | CCD ---
Author Name Unknown Address [address] [place] [address] Organization [facility] Care Team Providers Care Territory Sales Executive Name Role Phone James Desouza Primary Care Provider [phone] JAMES DESOUZA Primary Care Unavailable MARY TAVERAS Admitting Unavailable SHENDGEANISHAHAL Attending Unavailable AICHHOLZ, MCKAYLA Primary Care Unavailable AICHHOLZ, MCKAYLA Referring Unavailable AICHJODIE, MCKAYLA J Primary Care Physician Tico, Stephanie Unavailable GAVIOTA VEGA Attending Unavailable GAVIOTA VEGA Attending Unavailable MANNIE, MCKAYLA Krystal Referring Unavailable Julia VARGAS Attending Unavailable OLE RAMIREZ Attending Unavailable OLE RAMIREZ Consulting Unavailable AICHHOLZ, HANDYMAN MCKAYLA Primary Care Unavailable OLE RAMIREZ Admitting Unavailable ANTONY SHRESTHA Consulting Unavailable ALONDRA ., UMBERTO Admitting Unavailable ALONDRA ., UMBERTO Attending Unavailable AICHHOLZ, HANDYMAN MCKAYLA Primary Care Unavailable DR CICI CHING Consulting Unavailable MARYANNE POWER Consulting Unavailable GLENN KERR Consulting Unavailable YOMAIRA KERR Consulting Unavailable HATTIE GOFF Consulting Unavailable ALONDRA ., UMBERTO Consulting Unavailable TICO, STEPHANIE Attending Unavailable TICO, STEPHANIE Consulting Unavailable AICHHOLZ, HANDYMAN MCKAYLA Primary Care Unavailable TICO, STEPHANIE Admitting Unavailable DR JULIA ACOSTA Admitting Unavailable AICHHOLZ, HANDYMAN MCKAYLA Primary Care Unavailable REGLA Loera, DR DUMONT Attending Unavailable REGLA Loera, DR DUMONT Consulting Unavailable COLLIN HUERTAS Consulting Unavailable CECILIA KAUFMAN Admitting Unavailable CECILIA KAUFMAN Attending Unavailable AICHHOLZ, HANDYMAN MCKAYLA Primary Care Unavailable RAFAEL GONGORA Attending Unavailable RAFAEL GONGORA Admitting Unavailable AICHHOLZ, HANDYMAN MCKAYLA Primary Care Unavailable AICHHOLZ, HANDYMAN MCKAYLA Admitting Unavailable AICHHOLZ, HANDYMAN MCKAYLA Primary Care Unavailable AICHHOLZ, HANDYMAN MCKAYLA Attending Unavailable AICHHOLZ, HANDYMAN MCKAYLA Consulting Unavailable LAKSHMIPATHY ., NARENDRANATH Attending Anette vailable LAKSHMIPATHY ., NARENDRANATH Consulting Anette vailable LAKSHMIPATHY ., NARENDRANATH Admitting Anette vailable AICHHOLZ, HANDYMAN MCKAYLA Primary Care Unavailable VALENZUELA ., GIL Consulting Unavailable MORTENSEN ., DR CHAPARRO Aguillon Attending Unavailable MORTENSEN ., DR CHAPARRO Aguillon Admitting Unavailable AICHHOLZ, HANDYMAN MCKAYLA Primary Care Unavailable VALENZUELA ., GIL Consulting Unavailable MORTENSEN ., DR CHAPARRO Aguillon Admitting Unavailable AICHHOLZ, HANDYMAN MCKAYLA Primary Care Unavailable MORTENSEN ., DR CHPAARRO Aguillon Attending Unavailable HALKER ., SUBHASH Consulting Unavailable LAKSHMIPATHY ., NARENDRANATH Admitting Anette vailable LAKSHMIPATHY ., NARENDRANATH Attending Anette vailable AICHHOLZ, HANDYMAN MCKAYLA Primary Care Unavailable MORTENSEN ., DR CHAPARRO Aguillon Attending Unavailable MORTENSEN ., DR CHAPARRO Aguillon Admitting Unavailable VALENZUELA ., GIL Consulting Unavailable AICHOLZ, HANDYMAN MCKAYLA Primary Care Unavailable VALENZUELA ., GIL Consulting Unavailable MORTENSEN ., DR CHAPARRO Aguillon Attending Unavailable MORTENSEN ., DR CHAPARRO Aguillon Admitting Unavailable AICHHOLZ, HANDYMAN MCKAYLA Primary Care Unavailable HATTIE BRODERICK Attending Unavailable HATTIE BRODERICK Admitting Unavailable AICHHOLZ, HANDYMAN MCKAYLA Primary Care Unavailable AICHHOLZ, HANDYMAN MCKAYLA Admitting Unavailable AICHHOLZ, HANDYMAN MCKAYLA Consulting Unavailable AICHHOLZ, HANDYMAN MCKAYLA Primary Care Unavailable AICHHOLZ, HANDYMAN MCKAYLA Attending Unavailable AICHHOLZ, HANDYMAN MCKAYLA Primary Care Unavailable MISC, DR LESLIE Admitting Unavailable MISC, DR LESLIE Attending Unavailable MISC, DOCTOR Consulting Unavailable DIAB ., MARIANO Admitting Unavailable DIAB ., MARIANO Attending Unavailable DIAB ., MARIANO Consulting Unavailable AICHHOLZ, HANDYMAN MCKAYLA Primary Care Unavailable RICCO PICKARD Consulting Unavailable AICHHOLZ, HANDYMAN MCKAYLA Admitting Unavailable AICHHOLZ, HANDYMAN MCKAYLA Primary Care Unavailable AICHHOLZ, HANDYMAN MCKAYLA Attending Unavailable AICHHOLZ, HANDYMAN MCKAYLA Consulting Unavailable MAGDIEL, DR PATRICIA Joya Consulting Unavailable CECILIA KAUFMAN Attending Unavailable CECILIA KAUFMAN Admitting Unavailable MAGDIEL, DR PATRICIA Joya Consulting Unavailable AICHHOLZ, HANDYMAN MCKAYLA Primary Care Unavailable CECILIA KAUFMAN Consulting Unavailable FESTUS ., DR CHAPARRO Aguillon Attending Unavailable FESTUS ., DR CHAPARRO Aguillon Consulting Unavailable FESTUS ., DR CHAPARRO Aguillon Admitting Unavailable AICHHOLZ, HANDYMAN MCKAYLA Primary Care Unavailable HATTIE BRODERICK Attending Unavailable HATTIE BRODERICK Consulting Unavailable HATTIE BRODERICK Admitting Unavailable AICHHOLZ, HANDYMAN MCKAYLA Primary Care Unavailable HATTIE BAUTISTA Unavailable AICHHOLZ, HANDYMAN MCKAYLA Admitting Unavailable AICHHOLZ, HANDYMAN MCKAYLA Attending Unavailable AICHHOLZ, HANDYMAN MCKAYLA Consulting Unavailable AICHHOLZ, HANDYMAN MCKAYLA Primary Care Unavailable AICHHOLZ, MCKAYLA Attending Unavailable Ty Amin MD Primary Care Provider Allergies Allergy Classification Reported Allergen(s) Allergy Type Date of Onset Reaction(s) Facility (1 source) No Known Medication Allergies; 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: [No Known Medication Allergies] Propensity to adverse reactions (disorder) [facility] Medications Current Medications Medication Drug Class(es) Dates Sig (Normalized) Sig (Original) acetaminophen 325 mg / HYDROcodone bitartrate 5 mg oral tablet (6 sources) Opioid Agonist Start: 02-06-2022 acetaminophen-hydr ocodone 325 mg-5 mg oral tablet Refill(s) 0 Start Date: 02/06/22 Status: Ordered HYDROcodone-acet aminophen (Eagan) 5-325 MG tablet 1 tablet 3 (three) times a day as needed for severe pain. 0 Active take 1 tablet by vandana twice daily as needed Eagan 5-325 MG 1 tablet as needed Orally TWICE A DAY Active albuterol 0.83 mg/ml inhalation solution (8 sources) beta2-Adrenergic Agonist Start: 02-06-2022 albut gilbert 0.083% Inh Tracey 3 mL Refill(s) 0 Start Date: 02/06/22 Status: Ordered albuterol (2.5 M G/3ML) 0.083% nebulizer solution Take 2.5 mg by nebulization every 6 (six) hours if needed for wheezing. 0 Active take 2 puff(s) by in halation every four hours for wheezing albuterol HFA 90 mcg/act inhaler Inhale 2 puffs every 4 (four) hours if needed for wheezing. 0 Active Albuterol Sulfat e (2.5 MG/3ML) 0.083% 3 mL as needed Inhalation every 6 hrs Active amitriptyline hydrochloride 25 mg oral tablet (6 sources) Tricyclic Antidepressant Start: 02-06-2022 amitriptyline 25 mg Tab Refills(s) 0 Start Date: 02/06/22 Status: Ordered aspirin 81 mg chewable tablet (2 sources) Platelet Aggregation Inhibitor, Nonsteroidal Anti-inflammatory Drug aspirin 81 MG chewable tablet Chew 81 mg in the morning. 0 Active 60 actuat budesonide 0.16 mg/actuat / formoterol fumarate 0.0045 mg/actuat metered dose inhaler (4 sources) Corticosteroid, beta2-Adrenergic Agonist take 2 puff(s) by inhalation in the morning budesonide-formote rol (Symbicort) 160-4.5 MCG/ACT inhaler Inhale 2 puffs in the morning and 2 puffs before bedtime. Rinse mouth with water after use to reduce aftertaste and incidence of candidiasis. Do not swallow.. 0 Active take 2 puff(s) by inhalation twi ce daily Symbicort 160-4.5 MCG/ACT 2 puffs Inhalation Twice a day Active cetirizine hydrochloride 10 mg oral tablet (2 sources) Histamine-1 Receptor Antagonist take 1 tablet by mouth in the morning cetirizine (ZyrTEC) 10 MG tablet Take 10 mg by mouth in the morning. 0 Active dapagliflozin 10 mg oral tablet (3 sources) Sodium-Glucose Cotransporter 2 Inhibitor Start: 08-14-19 24 End: 11-12-19 24 take 1 tablet by mouth in the morning dapagliflozin (Farxiga) 10 MG Indications: Type 2 diabetes mellitus with unspecified complications (CMS/HCC) Take 1 tablet (10 mg) by mouth in the morning. 90 tablet 1 08/14/2023 11/12/2023 Active diclofenac sodium 75 mg delayed release oral tablet (6 sources) Nonsteroidal Anti-inflammatory Drug Start: 02-07-20 diclofenac sodium 75 mg Oral EC Tab Refills(s) 0 Start Date: 02/06/22 Status: Ordered 0.5 ML dulaglutide 9 MG/ML Auto-Injector [Trulicity] (4 sources) GLP-1 Receptor Agonist Start: 02-07-20 Trulicity Pen 4.5 mg/0.5 mL subcutaneous solution Refills(s) 0 Start Date: 02/06/22 Status: Ordered Trulicity 4.5 MG /0.5ML as directed Subcutaneous ONCE A WEEK Active dulaglutide (Trulicity) 4.5 MG/0.5ML solution pen-injector (2 sources) inject 4.5 mg by subcutaneous injection every week dulaglutide (Trulicity) 4.5 MG/0.5ML solution pen-injector Inject 4.5 mg under the skin 1 (one) time per week. 0 Active DULoxetine 60 mg delayed release oral capsule (5 sources) Serotonin and Norepinephrine Reuptake Inhibitor Start: End: take 1 capsule by mouth in the morning DULoxetine (Cymbalta) [address] capsule Indications: Anxiety and depression (CMS/HCC) Take 1 capsule (60 mg) by mouth in the morning and 1 capsule (60 mg) before bedtime. Do not crush or chew.. 60 capsule 3 07/23/2023 08/22/2023 Active Start: 02-06-2022 DULoxetine 30 mg Cap-EC Refills(s) 0 Start Date: 02/06/22 Status: Ordered DULoxetine 30 mg Cap-EC (1 source) Start: 02-06-2022 DULoxetine 30 mg Cap-EC Refills(s) 0 Start Date: 02/06/22 Status: Ordered ergocalciferol 1.25 mg oral capsule (2 sources) Provitamin D2 Compound take 1 capsule by mouth every week ergocalciferol (Vitamin D-2) 1.25 MG (94691 UT) capsule Take 1.25 mg by mouth 1 (one) time per week. 0 Active fluconazole 150 mg oral tablet (3 sources) Azole Antifungal Start: 08-17-2023 End: 08-19-2023 fluconazole (Diflucan) 150 MG tablet Indications: Vaginal yeast infection Take 1 tablet (150 mg) by mouth in the morning for 2 days. One time dose, may repeat in 3 days. 2 tablet 1 08/17/2023 08/19/2023 Active End: 08-17-2023 fluconazole (Diflucan) 150 M G tablet Take 200 mg by mouth in the morning. 0 08/17/2023 Discontinued (Reorder) furosemide 20 mg oral tablet (10 sources) Loop Diuretic Start: 02-06-2022 furosemide 20 mg Tab Refills(s) 0 Start Date: 02/06/22 Status: Ordered furosemide (Lasi x) 20 MG tablet Take 60 mg by mouth in the morning and 60 mg before bedtime. 40 mg in the morning and 20 mg in the afternoon. 0 Active take 1 tablet by mouth in the mo rning furosemide (Lasix) 40 MG tablet Take 40 mg by mouth in the morning. 0 Active Glucose Blood (ACCU-CHEK JAQUI PLUS ) (2 sources) Glucose Blood (A CCU-CHEK JAQUI PLUS ) 4 (four) times a day. 0 Active insulin aspart protamine, human 70 unt/ml / insulin aspart, human 30 unt/ml injectable suspension (2 sources) Insulin Analog insulin aspart protamine-insulin aspart (NovoLOG Mix 70-30) (70-30) 100 UNIT/ML injection Inject under the skin 3 (three) times a day. 8 units with breakfast, 10 units with lunch and 12 units with supper. 0 Active NovoLog (4 sources) Insulin Analog Start: 02-06-2022 NovoLog SubCutaneous, TIDAC, Refills(s) 0 Start Date: 02/06/22 Status: Ordered NovoLOG 100 UNIT /ML as directed Injection SLIDING SCALE BEFORE EACH MEAL Active 3 ml insulin glargine 100 unt/ml pen injector (6 sources) Insulin Analog Start: 02-06-2022 Lantus Solosta r Pen 100 units/mL subcutaneous solution Refills(s) 0 Start Date: 02/06/22 Status: Ordered inject 58 [IU] by doan bcutaneous injection in the morning insulin glargine (Lantus) 100 UNIT/ML injection Inject 58 Units under the skin in the morning and 58 Units before bedtime. 0 Active Lantus SoloStar 100 UNIT/ML as directed Subcutaneous 58 UNITS ONCE A DAY Active lisinopril 20 mg oral tablet (6 sources) Angiotensin Converting Enzyme Inhibitor Start: 07-15-2023 take 1 tablet by mouth in the morning lisinopril 20 MG tablet Indications: Primary hypertension (CMS/HCC) Take 1 tablet (20 mg) by mouth in the morning. 30 tablet 5 07/15/2023 Active Start: 02-06-2022 lisinopril 20 mg Tab Refills(s) [...] 2 times daily (with meals). 0 Active omeprazole 20 mg delayed release oral capsule (2 sources) Proton Pump Inhibitor take 1 capsule by mouth before mealtime omeprazole (PriLOSEC) [address] capsule Take 20 mg by mouth in the morning. Take before meals. Do not crush or chew. . 0 Active potassium chloride 10 meq extended release oral capsule (7 sources) Start: End: take 1 capsule by mouth in the morning potassium chloride ER (Micro-K) 10 MEQ ER capsule Indications: Edema, unspecified , Edema Take 1 capsule (10 mEq) by mouth in the morning. 90 capsule 1 08/14/2023 11/12/2023 Active take 1 tablet by vandana th every twenty-four hours Potassium Chloride ER 10 MEQ 1 tablet with food Orally Once a day Active Lyrica (8 sources) Start: 02-06-2022 Lyrica Oral, R efills(s) 0 Start Date: 02/06/22 Status: Ordered Start: 02-06-2022 pregabalin 300 mg Cap Refills(s) 0 Start Date: 02/06/22 Status: Ordered simvastatin 10 mg oral tablet (2 sources) HMG-CoA Reductase Inhibitor Start: 06-15-2023 End: 09-13-2023 take 1 tablet by mouth in the morning simvastatin (Zocor) 10 MG tablet Indications: Hyperlipidemia, unspecified (CMS/HCC) Take 1 tablet (10 mg) by mouth in the morning. 90 tablet 1 06/15/2023 09/13/2023 Active Symbicort 160/4.5 inhalation aerosol with adapter (2 sources) Start: 02-06-2022 Symbicort 160/4.5 inhalation aerosol with adapter Refill(s) 0 Start Date: 02/06/22 Status: Ordered 60 actuat tiotropium 0.0025 mg/actuat inhalation spray (6 sources) Anticholinergic Start: 02-06-2022 Spiriva Respimat 60 ACT 2.5 mcg/inh inhalation aerosol Refills(s) 0 Start Date: 02/06/22 Status: Ordered take 2 puff(s) by in halation in the morning tiotropium (Spiriva Respimat) 2.5 MCG/AC T inhaler Inhale 2 puffs in the morning. 0 Active take 2 puff(s) by inhalation twi ce daily Spiriva Respimat 2.5 MCG/ACT 2 puffs Inhalation TWICE A DAY Active triamcinolone acetonide 1 mg /ml topical cream (2 sources) Corticosteroid triamcinolone (K enalog) 0.1 % cream Apply 1 application topically in the morning and 1 application before bedtime. 0 Active Problems Active Problems Problem Classification Problem [...] status; 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: [Dietary counseling and surveillance] Episodic Anxiety disorders (2 sources) Mixed anxiety and depressive disorder; 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: [Anxiety disorder, unspecified] Onset: 07-10-2023 07-10-2023 Chronic Asthma (4 sources) Asthma; 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: [Unspecified asthma, uncomplicated] Onset: 07-10-2023 02-06-2022 Chronic Calculus of urinary tract (4 sources) Kidney stone; 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: [Calculus of kidney] Onset: 02-06-2022 Episodic Chronic kidney disease (5 sources) Chronic kidney disease; 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: [Chronic kidney disease, unspecified] Onset: 02-20-2022 Resolved: 03-08-2022 Chronic Chronic obstructive pulmonary disease and bronchiectasis (8 sources) Pulmonary emphysema; 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: [Chronic obstructive pulmonary disease with (acute) exacerbation] Onset: 10-09-2022 02-06-2022 Chronic Chronic ulcer of skin (3 sources) Non-pressure chronic ulcer of other part of right lower leg limited to breakdown of skin; 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: [Non-pressure chronic ulcer of other part of left lower leg limited to breakdown of skin] Onset: 09-01-2022 Chronic Diabetes mellitus with complications (20 sources) Disorder of kidney due to diabetes mellitus; 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: [Type 2 diabetes mellitus with diabetic chronic kidney disease] Onset: 02-20-2022 Resolved: 03-08-2022 Chronic Diabetes mellitus without complication (4 sources) Type 2 diabetes mellitus; 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: [Type 2 diabetes mellitus without complications] Onset: 04-27-2022 02-06-2022 Chronic Disorders of lipid metabolism (3 sources) Pure hypercholesterolemia, unspecified; 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: [Hyperlipidemia, unspecified] Onset: 04-06-2022 Chronic Esophageal disorders (1 source) Gastro-esophageal reflux disease without esophagitis; 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: [GERD WITHOUT ESOPHAGITIS] Onset: 12-05-2022 Chronic Essential hypertension (9 sources) Hypertensive disorder; 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: [Essential (primary) hypertension] [...] Mood disorders; 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: [DEPRESSION UNSPECIFIED] Onset: 12-05-2022 Mycoses (7 sources) Tinea unguium; 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: [Candidiasis of vagina] Onset: 07-26-2022 Episodic Noninfectious gastroenteritis (1 source) Noninfective gastroenteritis and colitis, unspecified; 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: [NONINFECTIVE GE AND COLITIS UNS] Onset: 10-09-2022 Episodic Osteoarthritis (9 sources) Arthritis; 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: [Unspecified osteoarthritis, unspecified site] Onset: 04-20-2022 02-06-2022 Chronic Other aftercare (1 source) Other 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 (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 therapy; 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: [OTH RESIDENCY PROGRAM COORDINATOR CURRENT DRUG THERAPY] Onset: 12-05-2022 Episodic Other aftercare (1 source) [facility] (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; 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: [[facility]DC CURRENT USE OF ASPIRIN] Onset: 12-05-2022 Episodic Other aftercare (1 source) [facility] (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; 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: [RESIDENCY PROGRAM COORDINATOR CURRENT USE OF INSULIN] Onset: 12-05-2022 Episodic [...] 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: [OBESITY UNSPECIFIED] Onset: 04-24-2022 Chronic Other nutritional; endocrine; and metabolic disorders (2 sources) Severe obesity; 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: [Morbid (severe) obesity due to excess calories] Onset: 07-10-2023 07-10-2023 Chronic Other screening for suspected conditions (not [...] APNEA] Onset: 10-09-2022 Chronic Residual codes; unclassified (2 sources) Obstructive sleep apnea syndrome; 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: [Obstructive sleep apnea (adult) (pediatric)] Onset: 07-10-2023 07-10-2023 Chronic Residual codes; unclassified (1 source) Acquired [...] HX MALIGNANT NEOPLASM UNS] Onset: 11-25-2022 Episodic Residual codes; unclassified (2 sources) Bilateral lower limb edema; 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: [Localized edema] Onset: 07-10-2023 07-10-2023 Episodic Substance-related disorders (5 sources) Nicotine dependence; 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: [Nicotine dependence, unspecified, uncomplicated] Onset: 02-06-2022 Chronic Comment on above: Added secondary to d ocumentation in Social History. Unclassified (1 source) [facility]DC INJECT NONINSULN ANTIDIAB; 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: [FDC INJECT NONINSULN ANTIDIAB] Onset: 12-05-2022 Unclassified (3 [...] [Proteinuria, unspecified] Onset: 02-06-2022 Resolved: 03-08-2022 Episodic Other connective tissue disease (4 sources) [...] edema; 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: [LOCALIZED EDEMA] Onset: 09-01-2022 Episodic Residual codes; unclassified (4 sources) Edema; 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: [Edema, unspecified] Onset: 07-10-2023 Resolved: 07-10-2023 08-14-2023 Episodic Skin and subcutaneous tissue infections (5 [...] 12-06-2022 BASO # 0.0 103/ul Normal 0.0-0.1 [facility] Comment on above: Performed By: #### C BC #### [facility] [address] [place] [address] Dr. Ashlie Hills Basophils/100 WBC (Bld) 0.1 % Critically low 0.2-2.0 [facility] Comment on above: Performed By: #### C BC #### [facility] [address] [place] [address] Dr. Ashlie Hills EO # 0.0 103/ul Normal 0.0-0.7 [facility] Comment on above: Performed By: #### C BC #### [facility] [address] [place] [address] Dr. Ashlie Hills Eosinophils/100 WBC (Bld) 0.0 % Critically low 0.9-7.0 [facility] Comment on above: Performed By: #### C BC #### [facility] [address] [place] [address] Dr. Ashlie Hills Erythrocyte distribution width (RBC) [Ratio] 14.9 % Normal 11.0-15.0 [facility] Comment on above: Performed By: #### C BC #### [facility] [address] [place] [address] Dr. Ashlie Hills Hematocrit (Bld) [Volume fraction] 46.2 % Normal 36.0-48.0 [facility] Comment on above: Performed By: #### C BC #### [facility] [address] [place] [address] Dr. Ashlie Hills Hemoglobin (Bld) [Mass/Vol] 14.7 g/dL Normal 12.0-16.0 [facility] Comment on above: Performed By: #### C BC #### [facility] [address] [place] [address] Dr. Ashlie Hills IG # 0.06 10e3/ul Critically high 0.00-0.03 [facility] Comment on above: Performed By: #### C BC #### [facility] [address] [address] [address] Ashlie Hills IG % 0.4 % Normal 0.0-0.5 [facility] Comment on above: Performed By: #### C BC #### [facility] [address] [place] [address] Dr. Ashlie Hills LYMPH # 1.3 103/ul Normal 1.2-3.8 [facility] Comment on above: Performed By: #### C BC #### [facility] [address] [place] [address] Dr. Ashlie Hills Lymphocytes/100 WBC (Bld) 9.4 % Critically low 20.5-60.0 [facility] Comment on above: Performed By: #### C BC #### [facility] [address] [place] [address] Dr. Ashlie Hills MANUAL DIFF REQ NO Normal [facility] Comment on above: Performed By: #### C BC #### [facility] [address] [place] [address] Dr. Ashlie Hills MCH (RBC) [Entitic mass] 28.4 pg Normal 26.7-34.0 [facility] Comment on above: Performed By: #### C BC #### [facility] [address] [place] [address] Dr. Ashlie Hills MCHC (RBC) [Mass/Vol] 31.8 g/dL Normal 29.9-35.2 [facility] Comment on above: Performed By: #### C BC #### [facility] [address] [place] [address] Dr. Ashlie Hills MCV (RBC) [Entitic vol] 89.4 fL Normal 81.0-99.0 [facility] Comment on above: Performed By: #### C BC #### [facility] [address] [place] [address] Dr. Ashlie Hills MONO # 0.5 103/ul Normal 0.3-0.8 [facility] Comment on above: Performed By: #### C BC #### [facility] [address] [place] [address] Dr. Ashlie Hills Monocytes/100 WBC (Bld) 3.4 % Normal 1.7-12.0 [facility] Comment on above: Performed By: #### C BC #### [facility] [address] [place] [address] Dr. Ashlie Hills NEUT # 11.8 103/ul Critically high 1.4-6.5 [facility] Comment on above: Performed By: #### C BC #### [facility] [address] [place] [address] Dr. Ashlie Hills Neutrophils/100 WBC (Bld) 86.7 % Critically high 43.0-75.0 [facility] Comment on above: Performed By: #### C BC #### [facility] [address] [place] [address] Dr. Ashlie Hills Platelet mean volume (Bld) [Entitic vol] 12.6 fL Normal 9.5-13.5 [facility] Comment on above: Performed By: #### C BC #### [facility] [address] [place] [address] Dr. Ashlie Hills PLT 133 103/ul Critically low 150-450 [facility] Comment on above: Performed By: #### C BC #### [facility] [address] [place] [address] Dr. Ashlie Hills RBC 5.17 106/ul Normal 4.20-5.40 [facility] Comment on above: Performed By: #### C BC #### [facility] [address] [place] [address] Dr. Ashlie Hills WBC 13.6 103/ul Critically high 4.0-11.0 [facility] Comment on above: Performed By: #### C BC #### [facility] [address] [place] [address] Dr. Ashlie Hills MAGNESIUMon 12-06-2022 Magnesium [Mass/Vol] 2.2 mg/dL Normal 1.8-2.4 [facility] Comment on above: Performed By: #### I NFLUAB #### [facility] [address] [place] [address] Dr. Ashlie Hills POINT OF CARE GLUCOSEon 11-08 Glucose [Mass/Vol] 340 mg/dL Critically high -106 [facility] Comment on above: Performed By: #### P OCGLUC #### [facility] [address] [place] [address] Dr. Ashlie Hills Glucose [Mass/Vol] 276 mg/dL Critically high [facility]106 [facility] Comment on above: Performed By: #### C BC #### [facility] [address] [place], [place] [address] Dr. Ashlie Hills Glucose [Mass/Vol] 333 mg/dL Critically high [facility]106 [facility] Comment on above: Performed By: #### C BC #### [facility] [address] [place] [address] Dr. Ashlie Hills PROF CHEM 8 (BAS METB)on Anion gap [Moles/Vol] 10.9 mmol/L Normal [facility] Comment on above: Performed By: #### I NFLUAB #### [facility] [address] [place] [address] Dr. Ashlie Hills Calcium [Mass/Vol] 9.3 mg/dL Normal 8.5-10.1 [facility] Comment on above: Performed By: #### I NFLUAB #### [facility] [address] [place] [address] Dr. Ashlie Hills Chloride [Moles/Vol] 103 mmol/L Normal 98-107 [facility] Comment on above: Performed By: #### I NFLUAB #### [facility] [address] [place] [address] Dr. Ashlie Hills CO2 [Moles/Vol] 31.2 mmol/L Normal 21.0-32.0 [facility] Comment on above: Performed By: #### I NFLUAB #### [facility] [address] [place] [address] Dr. Ashlie Hills Creatinine [Mass/Vol] 0.96 mg/dL Normal 0.55-1.02 [facility] Comment on above: Performed By: #### I NFLUAB #### [facility] [address] [address] [address] Ashlie Hills EGFR-AF TURKISH >60 Normal >=60 [facility] Comment on above: Performed By: #### I NFLUAB #### [facility] [address] [place] [address] Dr. Ashlie Hills EGFR-NON AF TURKISH >60 Normal >=60 [facility] Comment on above: Performed By: #### I NFLUAB #### [facility] [address] [place] [address] Dr. Ashlie Hills Glucose [Mass/Vol] 288 mg/dL Critically high 74-106 [facility] Comment on above: Performed By: #### I NFLUAB #### [facility] [address] [place] [address] Dr. Ashlie Hills Potassium [Moles/Vol] 5.1 mmol/L Normal 3.5-5.1 [facility] Comment on above: Performed By: #### I NFLUAB #### [facility] [address] [place] [address] Dr. Ashlie Hills Sodium [Moles/Vol] 140 mmol/L Normal 136-145 [facility] Comment on above: Performed By: #### I NFLUAB #### [facility] [address] [place] [address] Dr. Ashlie Hills Urea nitrogen [Mass/Vol] 30.0 mg/dL Critically high 7.0-18.0 [facility] Comment on above: Performed By: #### I NFLUAB #### [facility] [address] [place] [address] Dr. Ashlie Hills Urea nitrogen/Creatinine [Mass ratio] 31.2 mg/mg Normal [facility] Comment on above: Performed By: #### I NFLUAB #### [facility] [address] [place] [address] Dr. Ashlie Hills CBC AUTO DIFFon 12-05-2022 BASO # 0.0 103/ul Normal 0.0-0.1 [facility] Comment on above: Performed By: #### C BC #### [facility] [address] [place] [address] Dr. Ashlie Hills Basophils/100 WBC (Bld) 0.4 % Normal 0.2-2.0 [facility] Comment on above: Performed By: #### C BC #### [facility] [address] [place] [address] Dr. Ashlie Hills EO # 0.0 103/ul Normal 0.0-0.7 [facility] Comment on above: Performed By: #### C BC #### [facility] [address] [place] [address] Dr. Ashlie Hills Eosinophils/100 WBC (Bld) 0.0 % Critically low 0.9-7.0 [facility] Comment on above: Performed By: #### C BC #### [facility] [address] [place] [address] Dr. Ashlie Hills Erythrocyte distribution width (RBC) [Ratio] 14.8 % Normal 11.0-15.0 [facility] Comment on above: Performed By: #### C BC #### [facility] [address] [place] [address] Dr. Ashlie Hills Hematocrit (Bld) [Volume fraction] 49.9 % Critically high 36.0-48.0 [facility] Comment on above: Performed By: #### C BC #### [facility] [address] [place] [address] Dr. Ashlie Hills Hemoglobin (Bld) [Mass/Vol] 15.7 g/dL Normal 12.0-16.0 [facility] Comment on above: Performed By: #### C BC #### [facility] [address] [place] [address] Dr. Ashlie Hills IG # 0.04 10e3/ul Critically high 0.00-0.03 [facility] Comment on above: Performed By: #### C BC #### [facility] [address] [place] [address] Dr. Ashlie Hills IG % 0.5 % Normal 0.0-0.5 [facility] Comment on above: Performed By: #### C BC #### [facility] [address] [address] [address] Ashlie Hills LYMPH # 1.1 103/ul Critically low 1.2-3.8 [facility] Comment on above: Performed By: #### C BC #### [facility] [address] [place] [address] Dr. Ashlie Hills Lymphocytes/100 WBC (Bld) 12.7 % Critically low 20.5-60.0 [facility] Comment on above: Performed By: #### C BC #### [facility] [address] [place] [address] Dr. Ashlie Hills MANUAL DIFF REQ NO Normal [facility] Comment on above: Performed By: #### C BC #### [facility] [address] [place] [address] Dr. Ashlie Hills MCH (RBC) [Entitic mass] 28.1 pg Normal 26.7-34.0 [facility] Comment on above: Performed By: #### C BC #### [facility] [address] [place] [address] Dr. Ashlie Hills MCHC (RBC) [Mass/Vol] 31.5 g/dL Normal 29.9-35.2 [facility] Comment on above: Performed By: #### C BC #### [facility] [address] [place] [address] Dr. Ashlie Hills MCV (RBC) [Entitic vol] 89.3 fL Normal 81.0-99.0 [facility] Comment on above: Performed By: #### C BC #### [facility] [address] [place] [address] Dr. Ashlie Hills MONO # 0.1 103/ul Critically low 0.3-0.8 [facility] Comment on above: Performed By: #### C BC #### [facility] [address] [place] [address] Dr. Ashlie Hills Monocytes/100 WBC (Bld) 1.3 % Critically low 1.7-12.0 [facility] Comment on above: Performed By: #### C BC #### [facility] [address] [place] [address] Dr. Ashlie Hills NEUT # 7.2 103/ul Critically high 1.4-6.5 [facility] Comment on above: Performed By: #### C BC #### [facility] [address] [place] [address] Dr. Ashlie Hills Neutrophils/100 WBC (Bld) 85.1 % Critically high 43.0-75.0 [facility] Comment on above: Performed By: #### C BC #### [facility] [address] [place] [address] Dr. Ashlie Hills Platelet mean volume (Bld) [Entitic vol] 12.2 fL Normal 9.5-13.5 [facility] Comment on above: Performed By: #### C BC #### [facility] [address] [place] [address] Dr. Ashlie Hills PLT 116 103/ul Critically low 150-450 [facility] Comment on above: Performed By: #### C BC #### [facility] [address] [place] [address] Dr. Ashlie Hills RBC 5.59 106/ul Critically high 4.20-5.40 [facility] Comment on above: Performed By: #### C BC #### [facility] [address] [place] [address] Dr. Ashlie Hills WBC 8.5 103/ul Normal 4.0-11.0 [facility] Comment on above: Performed By: #### C BC #### [facility] [address] [place] [address] Dr. Ashlie Hills CTA CHEST WO W [...] by: HATTIE GOFF Date: 2022-12-05 01:52 Normal [facility] MAGNESIUMon 12-05-2022 Magnesium [Mass/Vol] 2.1 mg/dL Normal 1.8-2.4 [facility] Comment on above: Performed By: #### P OCGLUC #### [facility] [address] [address] [address] Ashlie Hills POINT OF CARE GLUCOSEon 11-08 Glucose [Mass/Vol] 293 mg/dL Critically high 74-106 [facility] Comment on above: Performed By: #### P OCGLUC #### [facility] [address] [address] [address] Ashlie Hills Glucose [Mass/Vol] 269 mg/dL Critically high 74-106 [facility] Comment on above: Performed By: #### P OCGLUC #### [facility] [address] [place] [address] Dr. Ashlie Hills Glucose [Mass/Vol] 223 mg/dL Critically high 74-106 [facility] Comment on above: Performed By: #### C VDAGS #### [facility] [address] [address] [address] Ashlie Hills PROF CHEM 8 (BAS METB)on Anion gap [Moles/Vol] 11.6 mmol/L Normal [facility] Comment on above: Performed By: #### P OCGLUC #### [facility] [address] [place] [address] Dr. Ashlie Hills Calcium [Mass/Vol] 9.2 mg/dL Normal 8.5-10.1 [facility] Comment on above: Performed By: #### P OCGLUC #### [facility] [address] [place] [address] Dr. Ashlie Hills Chloride [Moles/Vol] 102 mmol/L Normal 98-107 [facility] Comment on above: Performed By: #### P OCGLUC #### [facility] [address] [place] [address] Dr. Ashlie Hills CO2 [Moles/Vol] 28.7 mmol/L Normal 21.0-32.0 [facility] Comment on above: Performed By: #### P OCGLUC #### [facility] [address] [place] [address] Dr. Ashlie Hills Creatinine [Mass/Vol] 1.04 mg/dL Critically high 0.55-1.02 [facility] Comment on above: Performed By: #### P OCGLUC #### [facility] [address] [place] [address] Dr. Ashlie Hills EGFR-AF TURKISH >60 Normal >=60 [facility] Comment on above: Performed By: #### P OCGLUC #### [facility] [address] [place] [address] Dr. Ashlie Hills EGFR-NON AF TURKISH 56 mL/min/1.73m2 Critically low >=60 [facility] Comment on above: Performed By: #### P OCGLUC #### [facility] [address] [address] [address] Ashlie Hills Glucose [Mass/Vol] 231 mg/dL Critically high 74-106 [facility] Comment on above: Performed By: #### P OCGLUC #### [facility] [address] [address] [address] Ashlie Hills Potassium [Moles/Vol] 4.3 mmol/L Normal 3.5-5.1 [facility] Comment on above: Performed By: #### P OCGLUC #### [facility] [address] [address] [address] Ashlie Hills Sodium [Moles/Vol] 138 mmol/L Normal 136-145 [facility] Comment on above: Performed By: #### P OCGLUC #### [facility] [address] [address] [address] Ashlie Hills Urea nitrogen [Mass/Vol] 17.0 mg/dL Normal 7.0-18.0 [facility] Comment on above: Performed By: #### P OCGLUC #### [facility] [address] [place] [address] Dr. Ashlie Hills Urea nitrogen/Creatinine [Mass ratio] 16.3 mg/mg Normal [facility] Comment on above: Performed By: #### P OCGLUC #### [facility] [address] [address] [address] Ashlie Hills RESPIRATORY PANEL PLUSon Adenovirus Not detected Normal NOT DETECTED [facility] Comment on above: Performed By: #### C VDAGS #### [facility] [address] [place] [address] Dr. Ashlie Hills B. Parapertusis Not detected Normal NOT DETECTED [facility] Comment on above: Performed By: #### C VDAGS #### [facility] [address] [place] [address] Dr. Ashlie Hills B. Pertussis Not detected Normal NOT DETECTED [facility] Comment on above: Performed By: #### C VDAGS #### [facility] [address] [address] [address] Ashlie Hills Chlamydia Pneumoniae Not detected Normal NOT DETECTED [facility] Comment on above: Performed By: #### C VDAGS #### [facility] [address] [place] [address] Dr. Ashlie Hills Coronavirus 229E Not detected Normal NOT DETECTED [facility] Comment on above: Performed By: #### C VDAGS #### [facility] [address] [place] [address] Dr. Ashlie Hills Coronavirus HKU1 Not detected Normal NOT DETECTED [facility] Comment on above: Performed By: #### C VDAGS #### [facility] [address] [place] [address] Dr. Ashlie Hills Coronavirus NL63 Not detected Normal NOT DETECTED [facility] Comment on above: Performed By: #### C VDAGS #### [facility] [address] [place] [address] Dr. Ashlie Hills Coronavirus OC43 Not detected Normal NOT DETECTED [facility] Comment on above: Performed By: #### C VDAGS #### [facility] [address] [place] [address] Dr. Ashlie Hills Influenza A H1 Not detected Normal NOT DETECTED [facility] Comment on above: Performed By: #### C VDAGS #### [facility] [address] [place] [address] Dr. Ashlie Hills Influenza A H1 2009 Not detected Normal NOT DETECTED [facility] Comment on above: Performed By: #### C VDAGS #### [facility] [address] [place] [address] Dr. Ashlie Hills Influenza A H3 Not detected Normal NOT DETECTED [facility] Comment on above: Performed By: #### C VDAGS #### [facility] [address] [place] [address] Dr. Ashlie Hills Influenza B Not detected Normal NOT DETECTED [facility] Comment on above: Performed By: #### C VDAGS #### [facility] [address] [address] [address] Ashlie Hills Metapneumovirus Not detected Normal NOT DETECTED [facility] Comment on above: Performed By: #### C VDAGS #### [facility] [address] [address] [address] Ashlie Hills Mycoplas. Pneumoniae Not detected Normal NOT DETECTED [facility] Comment on above: Performed By: #### C VDAGS #### [facility] [address] [place] [address] Dr. Ashlie Hills Parainfluenza 1 Not detected Normal NOT DETECTED [facility] Comment on above: Performed By: #### C VDAGS #### [facility] [address] [place] [address] Dr. Ashlie Hills Parainfluenza 2 Not detected Normal NOT DETECTED [facility] Comment on above: Performed By: #### C VDAGS #### [facility] [address] [place] [address] Dr. Ashlie Hills Parainfluenza 3 Detected Abnormal NOT DETECTED [facility] Comment on above: Performed By: #### C VDAGS #### [facility] [address] [place] [address] Dr. Ashlie Hills Parainfluenza 4 Not detected Normal NOT DETECTED [facility] Comment on above: Performed By: #### C VDAGS #### [facility] [address] [place] [address] Dr. Ashlie Hills Rhino/Enterovirus Not detected Normal NOT DETECTED [facility] Comment on above: Performed By: #### C VDAGS #### [facility] [address] [place] [address] Dr. Ashlie DE PAZ Header 1 RESPIRATORY PANEL: VIRUSES Normal [facility] Comment on above: Performed By: #### C VDAGS #### [facility] [address] [place] [address] Dr. Ashlie DE PAZ Header 2 RESPIRATORY PANEL: BACTERIA Normal [facility] Comment on above: Performed By: #### C VDAGS #### [facility] [address] [place] [address] Dr. Ashlie Hills RSV Not detected Normal NOT DETECTED [facility] Comment on above: Performed By: #### C VDAGS #### [facility] [address] [place] [address] Dr. Ashlie Hills SARS-CoV-2 (COVID-19) RNA MADDY+probe Ql (Unsp spec) Not detected Normal NOT DETECTED [facility] Comment on above: Performed By: #### C VDAGS #### [facility] [address] [place] [address] Dr. Ashlie Hills XR CHEST 1 Von [...] MARYANNE POWER Date: 2022-12-04 22:23 Normal [facility] BLOOD GASES BTYon 12-04-2022 02 MODE ROOM AIR Normal [facility] Comment on above: Performed By: #### C BC #### [facility] [address] [place] [address] Dr. Ashlie Hills ALLENS TEST Positive Normal [facility] Comment on above: Performed By: #### C BC #### [facility] [address] [place] [address] Dr. Ashlie Hills Base excess Calc (Bld) [Moles/Vol] 5.4 mmol/L Critically high -2.0-2.0 [facility] Comment on above: Performed By: #### C BC #### [facility] [address] [place] [address] Dr. Ashlie Hills BIPAP PRESSURE Normal [facility] Comment on above: Performed By: #### C BC #### [facility] [address] [place] [address] Dr. Ashlie Hills CPAP Normal [facility] Comment on above: Performed By: #### C BC #### [facility] [address] [address] [address] Ashlie Hills FIO2 Normal [facility] Comment on above: Performed By: #### C BC #### [facility] [address] [place] [address] Dr. Ashlie Hills HCO3 (Bld) [Moles/Vol] 30.8 mmol/L Critically high 22.0-26.0 [facility] Comment on above: Performed By: #### C BC #### [facility] [address] [place] [address] Dr. Ashlie Hills LPM Normal [facility] Comment on above: Performed By: #### C BC #### [facility] [address] [place] [address] Dr. Ashlie Hills MINUTE VOLUME Normal [facility] Comment on above: Performed By: #### C BC #### [facility] [address] [place] [address] Dr. Ashlie Hills Oxygen (Bld) [Partial pressure] 46.3 mm[Hg] Critically low 80.0-100.0 [facility] Comment on above: Performed By: #### C BC #### [facility] [address] [place] [address] Dr. Ashlie Hills Oxygen saturation in Blood 83.9 % Critically low 95.0-100.0 [facility] Comment on above: Performed By: #### C BC #### [facility] [address] [place] [address] Dr. Ashlie Hills PCO2 54.2 mmHg Critically high 35.0-45.0 [facility] Comment on above: Performed By: #### C BC #### [facility] [address] [place] [address] Dr. Ashlie Hills PEEP [facility] Comment on above: Performed By: #### C BC #### [facility] [address] [place] [address] Dr. Ashlie Hills pH (Bld) 7.363 [pH] Normal 7.350-7.450 [facility] Comment on above: Performed By: #### C BC #### [facility] [address] [place] [address] Dr. Ashlie Hills [facility] Comment on above: Performed By: #### C BC #### [facility] [address] [place] [address] Dr. Ashlie Hills [facility] Comment on above: Performed By: #### C BC #### [facility] [address] [place] [address] Dr. Ashlie Hills PUNCTURE SITE LR [facility] Comment on above: Performed By: #### C BC #### [facility] [address] [place] [address] Dr. Ashlie Hills [facility] Comment on above: Performed By: #### C BC #### [facility] [address] [place] [address] Dr. Ashlie Hills [facility] Comment on above: Performed By: #### C BC #### [facility] [address] [place] [address] Dr. Ashlie Hills [facility] Comment on above: Performed By: #### C BC #### [facility] [address] [place] [address] Dr. Ashlie Hills BNPon 12-04-2022 Natriuretic peptide B (Bld) [Mass/Vol] 76.0 pg/mL Normal <=900.0 [facility] Comment on above: Performed By: #### P OCGLUC #### [facility] [address] [place] [address] Dr. Ashlie Hills CBC AUTO DIFFon 12-04-2022 BASO # 0.1 103/ul Normal 0.0-0.1 [facility] Comment on above: Performed By: #### C BC #### [facility] [address] [place] [address] Dr. Ashlie Hills Basophils/100 WBC (Bld) 0.6 % Normal 0.2-2.0 [facility] Comment on above: Performed By: #### C BC #### [facility] [address] [place] [address] Dr. Ashlie Hills EO # 0.2 103/ul Normal 0.0-0.7 [facility] Comment on above: Performed By: #### C BC #### [facility] [address] [place] [address] Dr. Ashlie Hills Eosinophils/100 WBC (Bld) 1.9 % Normal 0.9-7.0 [facility] Comment on above: Performed By: #### C BC #### [facility] [address] [place] [address] Dr. Ashlie Hills Erythrocyte distribution width (RBC) [Ratio] 15.0 % Normal 11.0-15.0 [facility] Comment on above: Performed By: #### C BC #### [facility] [address] [place] [address] Dr. Ashlie Hills Hematocrit (Bld) [Volume fraction] 49.1 % Critically high 36.0-48.0 [facility] Comment on above: Performed By: #### C BC #### [facility] [address] [place] [address] Dr. Ashlie Hills Hemoglobin (Bld) [Mass/Vol] 15.6 g/dL Normal 12.0-16.0 [facility] Comment on above: Performed By: #### C BC #### [facility] [address] [place] [address] Dr. Ashlie Hills IG # 0.02 10e3/ul Normal 0.00-0.03 [facility] Comment on above: Performed By: #### C BC #### [facility] [address] [place] [address] Dr. Ashlie Hills IG % 0.2 % Normal 0.0-0.5 [facility] Comment on above: Performed By: #### C BC #### [facility] [address] [place] [address] Dr. Ashlie Hills LYMPH # 2.8 103/ul Normal 1.2-3.8 [facility] Comment on above: Performed By: #### C BC #### [facility] [address] [place] [address] Dr. Ashlie Hills Lymphocytes/100 WBC (Bld) 29.9 % Normal 20.5-60.0 [facility] [facility] Comment on above: Performed By: #### C BC #### [facility] [address] [place] [address] Dr. Ashlie Hills MANUAL DIFF REQ NO Normal [facility] Comment on above: Performed By: #### C BC #### [facility] [address] [place] [address] Dr. Ashlie Hills MCH (RBC) [Entitic mass] 28.5 pg Normal 26.7-34.0 [facility] Comment on above: Performed By: #### C BC #### [facility] [address] [place] [address] Dr. Ashlie Hills MCHC (RBC) [Mass/Vol] 31.8 g/dL Normal 29.9-35.2 [facility] Comment on above: Performed By: #### C BC #### [facility] [address] [place] [address] Dr. Ashlie Hills MCV (RBC) [Entitic vol] 89.8 fL Normal 81.0-99.0 [facility] Comment on above: Performed By: #### C BC #### [facility] [address] [place] [address] Dr. Ashlie Hills MONO # 1.0 103/ul Critically high 0.3-0.8 [facility] Comment on above: Performed By: #### C BC #### [facility] [address] [place] [address] Dr. Ashlie Hills Monocytes/100 WBC (Bld) 10.6 % Normal 1.7-12.0 [facility] Comment on above: Performed By: #### C BC #### [facility] [address] [place] [address] Dr. Ashlie Hills NEUT # 5.3 103/ul Normal 1.4-6.5 [facility] Comment on above: Performed By: #### C BC #### [facility] [address] [place] [address] Dr. Ashlie Hills Neutrophils/100 WBC (Bld) 56.8 % Normal 43.0-75.0 [facility] Comment on above: Performed By: #### C BC #### [facility] [address] [place] [address] Dr. Ashlie Hills Platelet mean volume (Bld) [Entitic vol] 12.5 fL Normal 9.5-13.5 [facility] Comment on above: Performed By: #### C BC #### [facility] [address] [place] [address] Dr. Ashlie Hills PLT 109 103/ul Critically low 150-450 [facility] Comment on above: Performed By: #### C BC #### [facility] [address] [place] [address] Dr. Ashlie Hills RBC 5.47 106/ul Critically high 4.20-5.40 [facility] Comment on above: Performed By: #### C BC #### [facility] [address] [place] [address] Dr. Ashlie Hills WBC 9.4 103/ul Normal 4.0-11.0 [facility] Comment on above: Performed By: #### C BC #### [facility] [address] [place] [address] Dr. Ashlie Hills PROF 14(COMP METB)on 023 Albumin [Mass/Vol] 2.9 g/dL Critically low 3.4-5.0 [facility] Comment on above: Performed By: #### C BC #### [facility] [address] [place] [address] Dr. Ashlie Hills Albumin/Globulin [Mass ratio] 0.6 {ratio} Normal [facility] Comment on above: Performed By: #### C BC #### [facility] [address] [place] [address] Dr. Ashlie Hills ALP [Catalytic activity/Vol] 64 U/L Normal 46-116 [facility] Comment on above: Performed By: #### C BC #### [facility] [address] [place] [address] Dr. Ashlie Hills ALT [Catalytic activity/Vol] 16 U/L Normal 14-59 [facility] Comment on above: Performed By: #### C BC #### [facility] [address] [address] [address] Ashlie Hills Anion gap [Moles/Vol] 9.6 mmol/L Normal [facility] Comment on above: Performed By: #### C BC #### [facility] [address] [address] [address] Ashlie Hills AST [Catalytic activity/Vol] 16 U/L Normal 15-37 [facility] Comment on above: Performed By: #### C BC #### [facility] [address] [address] [address] Ashlie Hills Bilirubin [Mass/Vol] 0.5 mg/dL Normal 0.2-1.0 [facility] Comment on above: Performed By: #### C BC #### [facility] [address] [place] [address] Dr. Ashlie Hills Calcium [Mass/Vol] 8.7 mg/dL Normal 8.5-10.1 [facility] Comment on above: Performed By: #### C BC #### [facility] [address] [place] [address] Dr. Ashlie Hills Chloride [Moles/Vol] 103 mmol/L Normal 98-107 [facility] Comment on above: Performed By: #### C BC #### [facility] [address] [place] [address] Dr. Ashlie Hills CO2 [Moles/Vol] 30.7 mmol/L Normal 21.0-32.0 [facility] Comment on above: Performed By: #### C BC #### [facility] [address] [address] [address] Ashlie Hills Creatinine [Mass/Vol] 0.96 mg/dL Normal 0.55-1.02 [facility] Comment on above: Performed By: #### C BC #### [facility] [address] [address] [address] Ashlie Hills EGFR-AF TURKISH >60 Normal >=60 [facility] Comment on above: Performed By: #### C BC #### [facility] [address] [address] [address] Ashlie Hills EGFR-NON AF TURKISH >60 Normal >=60 [facility] Comment on above: Performed By: #### C BC #### [facility] [address] [address] [address] Ashlie Hills Globulin (S) [Mass/Vol] 4.7 g/dL Normal [facility] Comment on above: Performed By: #### C BC #### [facility] [address] [address] [address] Ashlie Hills Glucose [Mass/Vol] 170 mg/dL Critically high 74-106 [facility] Comment on above: Performed By: #### C BC #### [facility] [address] [address] [address] Ashlie Hills Potassium [Moles/Vol] 4.3 mmol/L Normal 3.5-5.1 [facility] Comment on above: Performed By: #### C BC #### [facility] [address] [address] [address] Ashlie Hills Protein [Mass/Vol] 7.6 g/dL Normal 6.4-8.2 [facility] Comment on above: Performed By: #### C BC #### [facility] [address] [address] [address] Ashlie Hills Sodium [Moles/Vol] 139 mmol/L Normal 136-145 [facility] Comment on above: Performed By: #### C BC #### [facility] [address] [address] [address] Ashlie Hills Urea nitrogen [Mass/Vol] 16.0 mg/dL Normal 7.0-18.0 [facility] Comment on above: Performed By: #### C BC #### [facility] [address] [address] [address] Ashlie Hills Urea nitrogen/Creatinine [Mass ratio] 16.7 mg/mg Normal [facility] Comment on above: Performed By: #### C BC #### [facility] [address] [address] [address] Ashlie Hills SYMPTOMATIC COVID-19 ANTIGEN on 12-04-2022 EUA Statement SEE BELOW Normal [facility] Comment on above: Result Comment: This [...] sooner. Performed By: #### C VDAGS #### [facility] [address] [place] [address] Dr. Ashlie Hills SARS-CoV-2 (COVID-19) RNA MADDY+probe Ql (Unsp spec) Negative Normal NEGATIVE [facility] Comment on above: Performed By: #### C VDAGS #### [facility] [address] [place] [address] Dr. Ashlie Hills TROPONIN, HIGH SENSITIVITYon 12-04-2022 HSTROP 8.9 pg/mL Normal 4.0-51.3 [facility] Comment on above: Result Comment: CUT- OFF POINTS HAVE BEEN ESTABLISHED BASED ON THE FOURTH UNIVERSAL DEFINITIONS OF MYOCARDIAL INFARCTION. THE UPPER REFERENCE LIMIT (URL) OF TROPONIN, DEFINED THE 99TH PERCENTILE OF cTnI DISTRIBUTION IN A REFERENCE POPULATION, HAS BEEN CONFIRMED THE DECISION THRESHOLD FOR [place] DIAGNOSIS. Performed By: #### P OCGLUC #### [facility] [address] [place] [address] Dr. Ashlie Hills MICROALBUMIN, RAND URon - mALB 35.8 mg/dL Critically high <=30.0 [facility] Comment on above: Performed By: #### C VDAGS #### [facility] [address] [address] [address] Ashlie Hills UA RANDOM W/MICROSCOPICon BACTERIA NONE SEEN Normal NONE SEEN [facility] Comment on above: Performed By: #### C VDAGS #### [facility] [address] [address] [address] Ashlie Hills Bilirubin Ql (U) Negative Normal NEGATIVE [facility] Comment on above: Performed By: #### C VDAGS #### [facility] [address] [place] [address] Dr. Ashlie Hills CAST SEEN Abnormal NONE SEEN [facility] Comment on above: Performed By: #### C VDAGS #### [facility] [address] [place] [address] Dr. Ashlie Hills Clarity (U) CLEAR Normal CLEAR [facility] Comment on above: Performed By: #### C VDAGS #### [facility] [address] [place] [address] Dr. Ashlie Hills Color (U) YELLOW Normal YELLOW [facility] Comment on above: Performed By: #### C VDAGS #### [facility] [address] [place] [address] Dr. Ashlie Hills Crystals LM Nom (Urine sed) NONE SEEN Normal NONE SEEN [facility] Comment on above: Performed By: #### C VDAGS #### [facility] [address] [place] [address] Dr. Ashlie Hills Epithelial cells LM Ql (Urine sed) MODERATE Abnormal NONE SEEN /RARE [facility] Comment on above: Performed By: #### C VDAGS #### [facility] [address] [place] [address] Dr. Ashlie Hills Glucose Ql (U) Negative Normal NEGATIVE [facility] Comment on above: Performed By: #### C VDAGS #### [facility] [address] [place] [address] Dr. Ashlie Hills Hemoglobin Ql (U) TRACE-INTACT Abnormal NEGATIVE [facility] Comment on above: Performed By: #### C VDAGS #### [facility] [address] [place] [address] Dr. Ashlie Hills Ketones Ql (U) Negative Normal NEGATIVE [facility] Comment on above: Performed By: #### C VDAGS #### [facility] [address] [place] [address] Dr. Ashlie Hills LEUKOCYTES Negative Normal NEGATIVE [facility] Comment on above: Performed By: #### C VDAGS #### [facility] [address] [place] [address] Dr. Ashlie Hills MUCOUS NONE SEEN Normal NONE SEEN [facility] Comment on above: Performed By: #### C VDAGS #### [facility] [address] [place] [address] Dr. Ashlie Hills Nitrite Ql (U) Negative Normal NEGATIVE [facility] Comment on above: Performed By: #### C VDAGS #### [facility] [address] [place] [address] Dr. Ashlie Hills pH (U) 5.0 [pH] Normal 5-9 [facility] Comment on above: Performed By: #### C VDAGS #### [facility] [address] [place] [address] Dr. Ashlie Hills RBC 0-2 Normal 0-2 [facility] Comment on above: Performed By: #### C VDAGS #### [facility] [address] [place] [address] Dr. Ashlie Hills SPEC GRAVITY 1.030 Abnormal 1.005-<=1.025 [facility] Comment on above: Performed By: #### C VDAGS #### [facility] [address] [place] [address] Dr. Ashlie Hills UA PROTEIN 100 mg/dl Abnormal NEGATIVE/ TRACE [facility] Comment on above: Performed By: #### C VDAGS #### [facility] [address] [place] [address] Dr. Ashlie Hills Urobilinogen Qn (U) 0.2 {Little'U}/dL Normal 0.2 - 1. 0 [facility] Comment on above: Performed By: #### C VDAGS #### [facility] [address] [place] [address] Dr. Ashlie Hills WBC NONE SEEN Normal NONE SEEN [facility] Comment on above: Performed By: #### C VDAGS #### [facility] [address] [place] [address] Dr. Ashlie Hills CBC AUTO DIFFon 11-22-2022 BASO # 0.0 103/ul Normal 0.0-0.1 [facility] Comment on above: Performed By: #### C BC #### [facility] [address] [place] [address] Dr. Ashlie Hills Basophils/100 WBC (Bld) 0.3 % Normal 0.2-2.0 [facility] Comment on above: Performed By: #### C BC #### [facility] [address] [place] [address] Dr. Ashlie Hills EO # 0.4 103/ul Normal 0.0-0.7 [facility] Comment on above: Performed By: #### C BC #### [facility] [address] [place] [address] Dr. Ashlie Hills Eosinophils/100 WBC (Bld) 3.0 % Normal 0.9-7.0 [facility] Comment on above: Performed By: #### C BC #### [facility] [address] [place] [address] Dr. Ashlie Hills Erythrocyte distribution width (RBC) [Ratio] 15.3 % Critically high 11.0-15.0 [facility] Comment on above: Performed By: #### C BC #### [facility] [address] [place] [address] Dr. Ashlie Hills Hematocrit (Bld) [Volume fraction] 52.4 % Critically high 36.0-48.0 [facility] Comment on above: Performed By: #### C BC #### [facility] [address] [place] [address] Dr. Ashlie Hills Hemoglobin (Bld) [Mass/Vol] 16.8 g/dL Critically high 12.0-16.0 [facility] Comment on above: Performed By: #### C BC #### [facility] [address] [address] [address] Ashlie Hills IG # 0.04 10e3/ul Critically high 0.00-0.03 [facility] Comment on above: Performed By: #### C BC #### [facility] [address] [place] [address] Dr. Ashlie Hills IG % 0.3 % Normal 0.0-0.5 [facility] Comment on above: Performed By: #### C BC #### [facility] [address] [place] [address] Dr. Ashlie Hills LYMPH # 4.5 103/ul Critically high 1.2-3.8 [facility] Comment on above: Performed By: #### C BC #### [facility] [address] [place] [address] Dr. Ashlie Hills Lymphocytes/100 WBC (Bld) 33.2 % Normal 20.5-60.0 [facility] Comment on above: Performed By: #### C BC #### [facility] [address] [place] [address] Dr. Ashlie Hills MANUAL DIFF REQ NO Normal [facility] Comment on above: Performed By: #### C BC #### [facility] [address] [place] [address] Dr. Ashlie Hills MCH (RBC) [Entitic mass] 28.0 pg Normal 26.7-34.0 [facility] Comment on above: Performed By: #### C BC #### [facility] [address] [place] [address] Dr. Ashlie Hills MCHC (RBC) [Mass/Vol] 32.1 g/dL Normal 29.9-35.2 [facility] Comment on above: Performed By: #### C BC #### [facility] [address] [place] [address] Dr. Ashlie Hills MCV (RBC) [Entitic vol] 87.3 fL Normal 81.0-99.0 [facility] Comment on above: Performed By: #### C BC #### [facility] [address] [id number] [address] Ashlie Hills MONO # 0.8 103/ul Normal 0.3-0.8 [facility] Comment on above: Performed By: #### C BC #### [facility] [address] [place] [address] Dr. Ashlie Hills Monocytes/100 WBC (Bld) 5.7 % Normal 1.7-12.0 [facility] Comment on above: Performed By: #### C BC #### [facility] [address] [place] [address] Dr. Ashlie Hills NEUT # 7.8 103/ul Critically high 1.4-6.5 [facility] Comment on above: Performed By: #### C BC #### [facility] [address] [place] [address] Dr. Ashlie Hills Neutrophils/100 WBC (Bld) 57.5 % Normal 43.0-75.0 [facility] Comment on above: Performed By: #### C BC #### [facility] [address] [place] [address] Dr. Ashlie Hills Platelet mean volume (Bld) [Entitic vol] 12.0 fL Normal 9.5-13.5 [facility] Comment on above: Performed By: #### C BC #### [facility] [address] [place] [address] Dr. Ashlie Hills PLT 152 103/ul Normal 150-450 [facility] Comment on above: Performed By: #### C BC #### [facility] [address] [place] [address] Dr. Ashlie Hills RBC 6.00 106/ul Critically high 4.20-5.40 [facility] Comment on above: Performed By: #### C BC #### [facility] [address] [place] [address] Dr. Ashlie Hills WBC 13.6 103/ul Critically high 4.0-11.0 [facility] Comment on above: Performed By: #### C BC #### [facility] [address] [place] [address] Dr. Ashlie Hills LIPID PROFILEon 11-22-2022 CHOL-HDL RATIO NORM SEE BELOW Normal [facility] Comment on above: Result Comment: 3.3 - 4.4 LOW RISK 4.4 - 7.1 AVERAGE RISK 7.1 - 11.0 MODERATE RISK >11.0 HIGH RISK Performed By: #### C BC #### [facility] [address], [place] [address] Dr. Ashlie Hills Cholesterol [Mass/Vol] 139 mg/dL Normal <=200 [facility] Comment on above: Performed By: #### C BC #### [facility] [address], [place] [address] Dr[address] Ashlie Hills Cholesterol in HDL [Mass/Vol] 35 mg/dL Critically low 40-60 [facility] Comment on above: Performed By: #### C BC #### [facility] [address], [place] [address] Dr[address] Ashlie Hills Cholesterol in LDL [Mass/Vol] 67.4 mg/dL Normal [facility] Comment on above: Performed By: #### C BC #### [facility] [address] [place], [place] [address] Dr[address] Ashlie Hills Cholesterol.total/Ch olesterol in HDL [Mass ratio] 4.0 {ratio} Normal [facility] Comment on above: Performed By: #### C BC #### [facility] [address], [place] [address] Dr. Ashlie Hills HDL NORMAL > or = 60 mg/dl - LOW CARDIOVASCULAR RISK <40 mg/dl - HIGH CARDIOVASCULAR RISK Normal [facility] Comment on above: Performed By: #### C BC #### [facility] [address], [place] [address] Dr[address] Ashlie Hills LDL CALC NORMAL SEE BELOW Normal [facility] Comment on above: Result Comment: <100 mg/dl OPTIMAL 100 - 129 mg/dl NEAR OR ABOVE OPTIMAL 130 - 159 mg/dl BORDERLINE HIGH 160 - 189 mg/dl HIGH >190 mg/dl VERY HIGH Performed By: #### C BC #### [facility] [address] [id number] Ashlie Hills Triglyceride [Mass/Vol] 183 mg/dL Critically high <=150 [facility] Comment on above: Performed By: #### C BC #### [facility] [address] [place], [place] [address] Dr[address] Ashlie Hills VLDL CALC 36.6 mg/dL Normal [facility] Comment on above: Performed By: #### C BC #### [facility] [address] [place], [place] [address] Dr[address] Ashlie Hills MG MAMM SCREEN 3D ALEX CADon 11-22-2022 MG MAMM SCREEN 3D ALEX CAD Patient: MITZI MACIAS Exam Date: 11/22/2022 : 1970 Gender:F Ordering : SAYDA BLAS HANDYMAN Admission #: [id number] Family : Order #: [id number] CLICK HERE TO VIEW EXAM RADIOLOGY REPORT [...] unknown cancer at age 75. LOCATION: [facility] BREAST COMPOSITION: Almost entirely fatty. FINDINGS: DIAGNOSTIC [...] M.D. on 11/22/2022 at 12:09 Normal [facility] PROF 14(COMP METB)on 05-17-2 023 Albumin [Mass/Vol] 3.0 g/dL Critically low 3.4-5.0 Th e [facility] Comment on above: Performed By: #### C BC #### [facility] [address] [place] [address] Dr. Ashlie Hills Albumin/Globulin [Mass ratio] 0.6 {ratio} Normal [facility] Comment on above: Performed By: #### C BC #### [facility] [address] [address] [address] Ashlie Hills ALP [Catalytic activity/Vol] 68 U/L Normal 46-116 [facility] Comment on above: Performed By: #### C BC #### [facility] [address] [place] [address] Dr. Ashlie Hills ALT [Catalytic activity/Vol] 14 U/L Normal 14-59 [facility] Comment on above: Performed By: #### C BC #### [facility] [address] [place] [address] Dr. Ashlie Hills Anion gap [Moles/Vol] 12.1 mmol/L Normal [facility] Comment on above: Performed By: #### C BC #### [facility] [address] [place] [address] Dr. Ashlie Hills AST [Catalytic activity/Vol] 9 U/L Critically low 15-37 [facility] Comment on above: Performed By: #### C BC #### [facility] [address] [place] [address] Dr. Ashlie Hills Bilirubin [Mass/Vol] 0.4 mg/dL Normal 0.2-1.0 [facility] Comment on above: Performed By: #### C BC #### [facility] [address] [place] [address] Dr. Ashlie Hills Calcium [Mass/Vol] 9.0 mg/dL Normal 8.5-10.1 [facility] Comment on above: Performed By: #### C BC #### [facility] [address] [place] [address] Dr. Ashlie Hills Chloride [Moles/Vol] 105 mmol/L Normal 98-107 [facility] Comment on above: Performed By: #### C BC #### [facility] [address] [address] [address] Ashlie Hills CO2 [Moles/Vol] 30.7 mmol/L Normal 21.0-32.0 [facility] Comment on above: Performed By: #### C BC #### [facility] [address] [address] [address] Ashlie Hills Creatinine [Mass/Vol] 0.77 mg/dL Normal 0.55-1.02 [facility] Comment on above: Performed By: #### C BC #### [facility] [address] [address] [address] Ashlie Hills EGFR-AF TURKISH >60 Normal >=60 [facility] Comment on above: Performed By: #### C BC #### [facility] [address] [address] [address] Ashlie Hills EGFR-NON AF TURKISH >60 Normal >=60 [facility] Comment on above: Performed By: #### C BC #### [facility] [address] [address] [address] Ashlie Hills Globulin (S) [Mass/Vol] 4.8 g/dL Normal [facility] Comment on above: Performed By: #### C BC #### [facility] [address] [address] [address] Ashlie Hills Glucose [Mass/Vol] 162 mg/dL Critically high 74-106 [facility] Comment on above: Performed By: #### C BC #### [facility] [address] [address] [address] Ashlie Hills Potassium [Moles/Vol] 3.8 mmol/L Normal 3.5-5.1 [facility] Comment on above: Performed By: #### C BC #### [facility] [address] [address] [address] Ashlie Hills Protein [Mass/Vol] 7.8 g/dL Normal 6.4-8.2 [facility] Comment on above: Performed By: #### C BC #### [facility] [address] [place], [place] [address] [address]. Ashlie Hills Sodium [Moles/Vol] 144 mmol/L Normal 136-145 [facility] Comment on above: Performed By: #### C BC #### [facility] [address] [address] [address] Ashlie Hills Urea nitrogen [Mass/Vol] 24.0 mg/dL Critically high 7.0-18.0 [facility] Comment on above: Performed By: #### C BC #### [facility] [address] [address] [address] Ashlie Hills Urea nitrogen/Creatinine [Mass ratio] 31.2 mg/mg Normal [facility] Comment on above: Performed By: #### C BC #### [facility] [address] [address] [address] Ashlie Hills Patient Educationon 11-16-19 23 [...] Spinach (cooked), rhubarb, beets, sweet potatoes, and Ethiopian chard. ? Peanuts. ? Potato chips, mauritian fries, and baked potatoes with skin on. ? Nuts and nut products. ? Chocolate. ? If you regularly take a diuretic medicine, make sure to eat at least 1 or 2 servings of fruits or vegetables that are high in potassium each day. These include: ? Avocado. ? Banana. ? [place], prune, carrot, or tomato juice. ? Baked [...] fish oil, or vitamin B6. ? Take ezkx-nnd-ycmgcsz and prescription medicines only as told by your health care provider. These include supplements. What foods should I limit? Limit your in (more content not included)... Normal [facility] Reminderson 11-15-2022 Reminders - From: Maria Elena Negrete To: SHEA Vega; Sent: 11/15/2022 14:23:36 EDT Show up: 04/17/2024 14:23:00 EDT Subject: Dani CT AP w con Due Date/Time: 05/18/2024 13:23:00 EST Please schedule [address] AP w con for adrenal mass. Normal [facility] Urology Office/Clinic Noteon 11-15-2022 Urology Office/Clinic [...] Contact Information SILVIA HOWELL, GAVIOTA Webb, URL [address] [facility] [place] [address] Additional Instructions: [address] AP w con Patient Education Dietary Guidelines to Help Prevent Kidney Stones Documentation recorded by the familia Negrete accurately reflects the services(s) I performed and decisions made by me. Authenticated by Gaviota Vega PA-C on 11/15/2022 14:32:07. Maria Elena Valenzuela, personally scribed for TALIB García on 11/15/2022 [...] (1/2 pack (more content not included)... Normal [facility] Comment on above: Result Comment: Elec tronically Signed By: GAVIOTA VEGA PA-C\.br\Date and Time Signed: 11/15/22 14:32 EDT\.br\Electronically Co-Signed By: Maria Elena Negrete\.br\Date and Time Co-Signed: 11/15/22 14:22 EDT\.br\Electronically Co-Signed By: Maria Elena Negrete\.br\Date and Time Co-Signed: 11/15/22 14:22 EDT CBC AUTO DIFFon 10-05-2022 BASO # 0.1 103/ul Normal 0.0-0.1 [facility] Comment on above: Performed By: #### C BC #### [facility] [address] [place] [address] Dr. Ashlie Hills Basophils/100 WBC (Bld) 0.6 % Normal 0.2-2.0 [facility] Comment on above: Performed By: #### C BC #### [facility] [address] [address] [address] Ashlie Hills EO # 0.3 103/ul Normal 0.0-0.7 [facility] Comment on above: Performed By: #### C BC #### [facility] [address] [place] [address] Dr. Ashlie Hills Eosinophils/100 WBC (Bld) 2.1 % Normal 0.9-7.0 [facility] Comment on above: Performed By: #### C BC #### [facility] [address] [place] [address] Dr. Ashlie Hills Erythrocyte distribution width (RBC) [Ratio] 15.9 % Critically high 11.0-15.0 [facility] Comment on above: Performed By: #### C BC #### [facility] [address] [place] [address] Dr. Ashlie Hills Hematocrit (Bld) [Volume fraction] 51.8 % Critically high 36.0-48.0 [facility] Comment on above: Performed By: #### C BC #### [facility] [address] [place] [address] Dr. Ashlie Hills Hemoglobin (Bld) [Mass/Vol] 16.6 g/dL Critically high 12.0-16.0 [facility] Comment on above: Performed By: #### C BC #### [facility] [address] [place] [address] Dr. Ashlie Hills IG # 0.03 10e3/ul Normal 0.00-0.03 [facility] Comment on above: Performed By: #### C BC #### [facility] [address] [place] [address] Dr. Ashlie Hills IG % 0.2 % Normal 0.0-0.5 [facility] Comment on above: Performed By: #### C BC #### [facility] [address] [place] [address] Dr. Ashlie Hills LYMPH # 3.9 103/ul Critically high 1.2-3.8 [facility] Comment on above: Performed By: #### C BC #### [facility] [address] [place] [address] Dr. Ashlie Hills Lymphocytes/100 WBC (Bld) 31.7 % Normal 20.5-60.0 [facility] Comment on above: Performed By: #### C BC #### [facility] [address] [place] [address] Dr. Ashlie Hills MANUAL DIFF REQ NO Normal [facility] Comment on above: Performed By: #### C BC #### [facility] [address] [place] [address] Dr. Ashlie Hills MCH (RBC) [Entitic mass] 27.9 pg Normal 26.7-34.0 [facility] Comment on above: Performed By: #### C BC #### [facility] [address] [place] [address] Dr. Ashlie Hills MCHC (RBC) [Mass/Vol] 32.0 g/dL Normal 29.9-35.2 [facility] Comment on above: Performed By: #### C BC #### [facility] [address] [place] [address] Dr. Ashlie Hills MCV (RBC) [Entitic vol] 87.1 fL Normal 81.0-99.0 [facility] Comment on above: Performed By: #### C BC #### [facility] [address] [place] [address] Dr. Ashlie Hills MONO # 0.7 103/ul Normal 0.3-0.8 [facility] Comment on above: Performed By: #### C BC #### [facility] [address] [place] [address] Dr. Ashlie Hills Monocytes/100 WBC (Bld) 5.8 % Normal 1.7-12.0 [facility] Comment on above: Performed By: #### C BC #### [facility] [address] [place] [address] Dr. Ashlie Hills NEUT # 7.3 103/ul Critically high 1.4-6.5 [facility] Comment on above: Performed By: #### C BC #### [facility] [address] [place] [address] Dr. Ashlie Hills Neutrophils/100 WBC (Bld) 59.6 % Normal 43.0-75.0 [facility] Comment on above: Performed By: #### C BC #### [facility] [address] [address] [address] Ashlie Hills Platelet mean volume (Bld) [Entitic vol] 11.7 fL Normal 9.5-13.5 [facility] Comment on above: Performed By: #### C BC #### [facility] [address] [address] [address] Ashlie Hills PLT 117 103/ul Critically low 150-450 [facility] Comment on above: Performed By: #### C BC #### [facility] [address] [address] [address] Ashlie Hills RBC 5.95 106/ul Critically high 4.20-5.40 [facility] Comment on above: Performed By: #### C BC #### [facility] [address] [address] [address] Ashlie Hills WBC 12.3 103/ul Critically high 4.0-11.0 [facility] Comment on above: Performed By: #### C BC #### [facility] [id number] Ashlie Hills CT ABD/PELV W CONon [...] RICCO PICKARD Date: 2022-10-05 13:13 Normal [facility] ER URINE PROFILEon 3 Bilirubin Ql (U) Negative Normal NEGATIVE [facility] Comment on above: Performed By: #### P OCGLUC #### [facility] [address] [address] [address] Ashlie Hills Clarity (U) CLEAR Normal CLEAR [facility] Comment on above: Performed By: #### P OCGLUC #### [facility] [address] [place] [address] Dr. Ashlie Hills Color (U) YELLOW Normal YELLOW [facility] Comment on above: Performed By: #### P OCGLUC #### [facility] [address] [address] [address] Ashlie Hills ERUAHBraulio A micrscopic examination will be performed if indicated. Normal [facility] Comment on above: Performed By: #### P OCGLUC #### [facility] [address] [address] [address] Ashlie Hills Glucose Ql (U) Negative Normal NEGATIVE [facility] Comment on above: Performed By: #### P OCGLUC #### [facility] [address] [address] [address] Ashlie Hills Hemoglobin Ql (U) Negative Normal NEGATIVE [facility] Comment on above: Performed By: #### P OCGLUC #### [facility] [address] [address] [address] Ashlie Hills Ketones Ql (U) Negative Normal NEGATIVE [facility] Comment on above: Performed By: #### P OCGLUC #### [facility] [address] [address] [address] Ashlie Hills LEUKOCYTES Negative Normal NEGATIVE [facility] Comment on above: Performed By: #### P OCGLUC #### [facility] [address] [place] [address] Dr. Ashlie Hills Nitrite Ql (U) Negative Normal NEGATIVE [facility] Comment on above: Performed By: #### P OCGLUC #### [facility] [address] [place] [address] Dr. Ashlie Hills pH (U) 6.0 [pH] Normal 5-9 [facility] Comment on above: Performed By: #### P OCGLUC #### [facility] [address] [place] [address] Dr. Ashlie Hills Protein (U) [Mass/Vol] 100 mg/dL Abnormal NEGATIVE/ TRACE [facility] Comment on above: Performed By: #### P OCGLUC #### [facility] [address] [place] [address] Dr. Ashlie Hills SPEC GRAVITY 1.010 Normal 1.005-<=1.025 [facility] Comment on above: Performed By: #### P OCGLUC #### [facility] [address] [place] [address] Dr. Ashlie Hills UR MICRO IND INDICATED Normal [facility] Comment on above: Performed By: #### P OCGLUC #### [facility] [address] [place] [address] Dr. Ashlie Hills Urobilinogen Qn (U) 1.0 {Little'U}/dL Normal 0.2 - 1. 0 [facility] Comment on above: Performed By: #### P OCGLUC #### [facility] [address] [place] [address] Dr. Ashlie Hills LIPASEon 10-05-2022 Lipase [Catalytic activity/Vol] 1771.0 U/L Critically high 73.0-393.0 [facility] Comment on above: Performed By: #### C BC #### [facility] [address] [place] [address] Dr. Ashlie Hills PREG HCG QUALon 10-05-2022 , QUAL Negative Normal NEGATIVE [facility] Comment on above: Performed By: #### P OCGLUC #### [facility] [address] [place] [address] Dr. Ashlie Hills PROF 14(COMP METB)on 023 Albumin [Mass/Vol] 3.2 g/dL Critically low 3.4-5.0 Th e [facility] Comment on above: Performed By: #### C BC #### [facility] [address] [place] [address] Dr. Ashlie Hills Albumin/Globulin [Mass ratio] 0.7 {ratio} Normal [facility] Comment on above: Performed By: #### C BC #### [facility] [address] [place] [address] Dr. Ashlie Hills ALP [Catalytic activity/Vol] 70 U/L Normal 46-116 [facility] Comment on above: Performed By: #### C BC #### [facility] [address] [place] [address] Dr. Ashlie Hills ALT [Catalytic activity/Vol] 11 U/L Critically low 14-59 [facility] Comment on above: Performed By: #### C BC #### [facility] [address] [place] [address] Dr. Ashlie Hills Anion gap [Moles/Vol] 10.3 mmol/L Normal [facility] Comment on above: Performed By: #### C BC #### [facility] [address] [place] [address] Dr. Ashlie Hills AST [Catalytic activity/Vol] 11 U/L Critically low 15-37 [facility] Comment on above: Performed By: #### C BC #### [facility] [address] [place] [address] Dr. Ashlie Hills Bilirubin [Mass/Vol] 0.9 mg/dL Normal 0.2-1.0 [facility] Comment on above: Performed By: #### C BC #### [facility] [address] [place] [address] Dr. Ashlie Hills Calcium [Mass/Vol] 9.3 mg/dL Normal 8.5-10.1 [facility] Comment on above: Performed By: #### C BC #### [facility] [address] [place] [address] Dr. Ashlie Hills Chloride [Moles/Vol] 105 mmol/L Normal 98-107 [facility] Comment on above: Performed By: #### C BC #### [facility] [address] [place] [address] Dr. Ashlie Hills CO2 [Moles/Vol] 30.6 mmol/L Normal 21.0-32.0 [facility] Comment on above: Performed By: #### C BC #### [facility] [address] [address] [address] Ashlie Hills Creatinine [Mass/Vol] 0.62 mg/dL Normal 0.55-1.02 [facility] Comment on above: Performed By: #### C BC #### [facility] [address] [place] [address] Dr. Ashlie Hills EGFR-AF TURKISH >60 Normal >=60 [facility] Comment on above: Performed By: #### C BC #### [facility] [address] [place] [address] Dr. Ashlie Hills EGFR-NON AF TURKISH >60 Normal >=60 [facility] Comment on above: Performed By: #### C BC #### [facility] [address] [address] [address] Ashlie Hills Globulin (S) [Mass/Vol] 4.6 g/dL Normal [facility] Comment on above: Performed By: #### C BC #### [facility] [address] [place] [address] Dr. Ashlie Hills Glucose [Mass/Vol] 85 mg/dL Normal 74-106 [facility] Comment on above: Performed By: #### C BC #### [facility] [address] [place] [address] Dr. Ashlie Hills Potassium [Moles/Vol] 3.9 mmol/L Normal 3.5-5.1 [facility] Comment on above: Performed By: #### C BC #### [facility] [address] [place] [address] Dr. Ashlie Hills Protein [Mass/Vol] 7.8 g/dL Normal 6.4-8.2 [facility] Comment on above: Performed By: #### C BC #### [facility] [address] [address] [address] Ashlie Hills Sodium [Moles/Vol] 142 mmol/L Normal 136-145 [facility] Comment on above: Performed By: #### C BC #### [facility] [address] [address] [address] Ashlie Hills Urea nitrogen [Mass/Vol] 12.0 mg/dL Normal 7.0-18.0 [facility] Comment on above: Performed By: #### C BC #### [facility] [address] [place] [address] Dr. Ashlie Hills Urea nitrogen/Creatinine [Mass ratio] 19.4 mg/mg Normal [facility] Comment on above: Performed By: #### C BC #### [facility] [address] [place] [address] Dr. Ashlie Hills URINE MICROSCOPIC ONLYon BACTERIA TRACE Abnormal NONE SEEN [facility] Comment on above: Performed By: #### P OCGLUC #### [facility] [address] [place] [address] Dr. Ashlie Hills Bacteria identified Cx Nom (U) NOT INDICATED Normal [facility] Comment on above: Performed By: #### P OCGLUC #### [facility] [address] [place] [address] Dr. Ashlie Hills CAST NONE SEEN Normal NONE SEEN [facility] Comment on above: Performed By: #### P OCGLUC #### [facility] [address] [place] [address] Dr. Ashlie Hills Crystals LM Nom (Urine sed) NONE SEEN Normal NONE SEEN [facility] Comment on above: Performed By: #### P OCGLUC #### [facility] [address] [place] [address] Dr. Ashlie Hills Epithelial cells LM Ql (Urine sed) MODERATE Abnormal NONE SEEN /RARE [facility] Comment on above: Performed By: #### P OCGLUC #### [facility] [address] [place] [address] Dr. Ashlie Hills MUCOUS NONE SEEN Normal NONE SEEN [facility] Comment on above: Performed By: #### P OCGLUC #### [facility] [address] [address] [address] Ashlie Hills RBC 0-2 Normal 0-2 [facility] Comment on above: Performed By: #### P OCGLUC #### [facility] [address] [place] [address] Dr. Ashlie Hills WBC 0-2 Abnormal NONE SEEN [facility] Comment on above: Performed By: #### P OCGLUC #### [facility] [address] [place] [address] Dr. Ashlie Hills Covid-19 PCR ([facility])on 09-06 SARS-CoV-2 (COVID-19) RNA MADDY+probe Ql (Unsp spec) Detected Abnormal NOT DETECTED [facility] Comment on above: Result Comment: This test is not yet approved or cleared by the [place] FDA. When there are no FDA-approved or cleared tests available, and other criteria are met, FDA can make tests available under an emergency access mechanism called an Emergency Use Authorization (EUA). The EUA for this test is supported by the Shipping & Receiving Lead of Health and Human Service's declaration that [...] used). Performed By: #### C VDAGS #### [facility] [address] [place] [address] Dr. Ashlie iHlls INFLUENZA A AND B AGon 09-21 INFLUANEGH SEE BELOW Normal [facility] Comment on above: Result Comment: Nega tive for Flu A protein angiten. Infection due to Flu A cannot be ruled out. Flu A angiten in the sample may be below the detection limit of the test. Performed By: #### I NFLUAB #### [facility] [address] [place] [address] Dr. Ashlie Hills INFLUBNEGH SEE BELOW Normal [facility] Comment on above: Result Comment: Nega tive for Flu B protein antigen. Infection due to Flu B cannot be ruled out. Flu B antigen in the sample may be below the detection limit of the test. Performed By: #### I NFLUAB #### [facility] [address] [place] [address] Dr. Ashlie Hills INFLUENZA A AG Negative Normal NEGATIVE SEE COMMENT [facility] Comment on above: Performed By: #### I NFLUAB #### [facility] [address] [address] [address] Ashlie Hills INFLUENZA B AG Negative Normal NEGATIVE SEE COMMENT [facility] Comment on above: Performed By: #### I NFLUAB #### [facility] [address] [place] [address] Dr. Ashlie Hills RAD - CT Reporton 07-31-2022 RAD - CT Report [id number] #1.00CD:[address] [facility] [address] ABD/PELV W CONon 07-27-19 CT ABD/PELV [...] to at least 10/21/2018, unchanged. https://www.ncbi.nlm .nih.gov/pmc/article s/[email or web address]/ Electronically authenticated by: COLLIN HUERTAS Date: 2022-07-27 14:56 Normal [facility] Reminders 07-27-2022 Reminders - From: Raquel Tidwell To: EU - Recalls Vargas; Sent: 02/06/2022 11:45:57 EDT Show up: 07/09/2022 11:45:00 EST Subject: Ct scan Due Date/Time: 07/31/2022 11:45:00 EST Reminder/Recall Pt needs Ct scan abd/pelvis w contrast ATTN Adrenals scheduled prior to Aug 2022 appt. She wants [facility] order faxed to [facility] Pt scheduled for 07/27/2022 will monitor [facility] for results over the next few days Normal [facility] Physician Orderon 07-19-2022 Physician Order [id number] #[id number]:127 Normal [facility] CREATININEon 07-18-2022 Creatinine [Mass/Vol] 0.81 mg/dL Normal 0.55-1.02 [facility] Comment on above: Performed By: #### C BC #### [facility] [address] [place] [address] Dr. Ashlie Hills EGFR-AF TURKISH >60 Normal >=60 [facility] Comment on above: Performed By: #### C BC #### [facility] [address] [place] [address] Dr. Ashlie Hills EGFR-NON AF TURKISH >60 Normal >=60 [facility] Comment on above: Performed By: #### C BC #### [facility] [address] [place] [address] LOW EXT W [...] PATRICIA IVAN Date: 2022-07-18 14:58 Normal [facility] XR KNEE LT 1_2 Von 3 XR [...] HATTIE BAUTISTA Date: 2022-07-18 12:00 Normal [facility]09 SARS-CoV-2 (COVID-19) RNA MADDY+probe Ql (Unsp spec) Not detected Normal NOT DETECTED [facility] Comment on above: Result Comment: This test is not yet approved or cleared by the [place] FDA. When there are no FDA-approved or cleared tests available, and other criteria are met, FDA can make tests available under an emergency access mechanism called an Emergency Use Authorization (EUA). The EUA for this test is supported by the Shipping & Receiving Lead of Health and Human Service's (HHS's) declaration [...] SARS-CoV-2. Performed By: #### C BC #### [facility] [address] [place] [address] Dr. Ashlie Hills INFLUENZA A AND B AGon 07-06 INFLUANE SEE BELOW Normal [facility] Comment on above: Result Comment: Nega tive for Flu A protein angiten. Infection due to Flu A cannot be ruled out. Flu A angiten in the sample may be below the detection limit of the test. Performed By: #### C BC #### [facility] [address] [place] [address] Dr. Ashlie Hills INFLUBNEG SEE BELOW Normal [facility] Comment on above: Result Comment: Nega tive for Flu B protein antigen. Infection due to Flu B cannot be ruled out. Flu B antigen in the sample may be below the detection limit of the test. Performed By: #### C BC #### [facility] [address] [place] [address] Dr. Ashlie Hills INFLUENZA A AG Negative Normal NEGATIVE SEE COMMENT [facility] Comment on above: Performed By: #### C BC #### [facility] [address] [place] [address] Dr. Ashlie Hills INFLUENZA B AG Negative Normal NEGATIVE SEE COMMENT [facility] Comment on above: Performed By: #### C BC #### [facility] [address] [place] [address] Dr. Ashlie Hills POINT OF CARE GLUCOSEon 04-08 Glucose [Mass/Vol] 108 mg/dL Critically high 74-106 [facility] Comment on above: Performed By: #### C BC #### [facility] [address] [place] [address] Dr. Ashlie Hills RAGHU by IFAon 03-07-2022 Antinuclear Antibodies, IFA Negative Normal [facility] Comment on above: Result Comment: Nega tive <1:80 Borderline 1:80 Positive >1:80 ICAP nomenclature: AC-0 For more information about Hep-2 cell patterns use ANApatterns.org, the official website for the International Consensus on Antinuclear Antibody (RAGHU) Patterns (ICAP). Performed By: #### A NAPARESH #### [facility] [address] [place] [address] Dr. Ashlie Hills IMMUNOFIXATION (TREVON), URINEo n 03-07-2022 TREVON Interpretation:U Comment Normal [facility] Comment on above: Result Comment: No m onoclonality detected. Performed By: #### C BC #### [facility] [address] [place] [address] Dr. Ashlie Hills IMMUNOFIXATION(TREVNO),PROTEIN ELEC(PE),FREon 03-07-2022 Albumin [Mass/Vol] 3.0 g/dL Normal 2.9-4.4 [facility] Comment on above: Performed By: #### I NFLUAB #### [facility] [address] [place] [address] Dr. Ashlie Hills Albumin/Globulin [Mass ratio] 0.8 {ratio} Normal 0.7-1.7 [facility] Comment on above: Performed By: #### I NFLUAB #### [facility] [address] [place] [address] Dr. Ashlie Hills Ahttg-3-Dfpvfyql 0.3 g/dL Normal 0.0-0.4 [facility] Comment on above: Performed By: #### I NFLUAB #### [facility] [address] [place] [address] Dr. Ashlie Hills Umazd-2-Esrmrgbx 1.0 g/dL Normal 0.4-1.0 [facility] Comment on above: Performed By: #### I NFLUAB #### [facility] [address] [place] [address] Dr. Ashlie Hills Beta Globulin 1.8 g/dL Critically high 0.7-1.3 [facility] Comment on above: Performed By: #### I NFLUAB #### [facility] [address] [place] [address] Dr. Ashlie Hills Free Rienzi Lt Chains,S 45.2 mg/L Critically high 3.3-19.4 [facility] Comment on above: Performed By: #### I NFLUAB #### [facility] [address] [place] [address] Dr. Ashlie Hills Free Lambda Lt Chains,S 40.3 mg/L Critically high 5.7-26.3 [facility] Comment on above: Performed By: #### I NFLUAB #### [facility] [address] [place] [address] Dr. Ashlie Hills Gamma Globulin 0.8 g/dL Normal 0.4-1.8 [facility] Comment on above: Performed By: #### I NFLUAB #### [facility] [address] [place] [address] Dr. Ashlie Hills Globulin (S) [Mass/Vol] 3.9 g/dL Normal 2.2-3.9 [facility] Comment on above: Performed By: #### I NFLUAB #### [facility] [address] [place] [address] Dr. Ashlie Hills Immunofixation Result, Serum Comment Normal [facility] Comment on above: Result Comment: No m onoclonality detected. Performed By: #### I NFLUAB #### [facility] [address] [place] [address] Dr. Ashlie Hills Immunoglobulin A, Qn, Serum 776 mg/dL Critically high 87-352 [facility] Comment on above: Performed By: #### I NFLUAB #### [facility] [address] [place] [address] Dr. Ashlie Hills Immunoglobulin G, Qn, Serum 955 mg/dL Normal 586-1602 [facility] Comment on above: Performed By: #### I NFLUAB #### [facility] [address] [place] [address] Dr. Ashlie Hills Immunoglobulin M, Qn, Serum 39 mg/dL Normal 26-217 [facility] Comment on above: Performed By: #### I NFLUAB #### [facility] [address] [place] [address] Dr. Ashlie Hills Rienzi/Lambda Ratio, S 1.12 Normal 0.26-1.65 [facility] Comment on above: Performed By: #### I NFLUAB #### [facility] [address] [place] [address] Dr. Ashlie Hills M-Bright Not Observed Normal Not Observed [facility] Comment on above: Performed By: #### I NFLUAB #### [facility] [address] [place] [address] Dr. Ashlie Hills PDF . Normal [facility] Comment on above: Performed By: #### I NFLUAB #### [facility] [address] [place] [address] Dr. Ashlie Hills Please note: Comment Normal [facility] Comment on above: Result Comment: Prot ein electrophoresis scan will follow via computer, mail, or meat blender delivery. Performed By: #### I NFLUAB #### [facility] [address] [place] [address] Dr. Ashlie Hills Protein [Mass/Vol] 6.9 g/dL Normal 6.0-8.5 [facility] Comment on above: Performed By: #### I NFLUAB #### [facility] [address] [place] [address] Dr. Ashlie Hills C-PEPTIDE, SERUMon 2 C-Peptide, Serum 3.1 ng/mL Normal 1.1-4.4 [facility] Comment on above: Result Comment: C-Pe ptide reference interval is for fasting patients. Performed By: #### C PEPT #### [facility] [address] [place] [address] Dr. Ashlie Hills HEP B SURFACE ANTIGEN SCREEN on 03-04-2022 HBsAg Screen Negative Normal Negative [facility] Comment on above: Performed By: #### C BC #### [facility] [address] [place] [address] Dr. Ashlie Hills HEPATITIS C VIRUS AB W/ REFL EX QUANTon 03-04-2022 HCV AB <0.1 Normal 0.0-0.9 [facility] Comment on above: Performed By: #### I NFLUAB #### [facility] [address] [address] [address] Ashlie Hills Interpretation: Comment Normal [facility] Comment on above: Result Comment: Rupert tikike Not infected with HCV, unless recent infection is suspected or other evidence exists to indicate HCV infection. Performed By: #### I NFLUAB #### [facility] [address] [address] [address] Ashlie Hills MICROALBUMIN/ CREATININE RAT IOon 03-04-2022 Albumin, Urine 367.4 ug/mL Normal Not Estab. [facility] Comment on above: Performed By: #### C BC #### [facility] [address] [address] [address] Ashlie Hills Albumin/ Creatinine Ratio 239 mg/g creat Critically high 0-29 [facility] Comment on above: Result Comment: Norm al: 0 - 29 Moderately increased: 30 - 300 Severely increased: >300 Performed By: #### C BC #### [facility] [address] [address] [address] Ashlie Hills Creatinine, Urine 153.9 mg/dL Normal Not Estab. [facility] Comment on above: Performed By: #### C BC #### [facility] [address] [address] [address] Ashlie Hills VIT D 25-OH LABCORPon 2021 Vitamin D, 25-Hydroxy <4.0 Critically low 30.0-100.0 [facility] Comment on above: Result Comment: Graciela min D deficiency has been defined by the [place] [employer] and an Endocrine Society practice guideline as a level of serum 25-OH vitamin D less than 20 ng/mL (1,2). The Endocrine Society went on to further define vitamin D insufficiency as a level between 21 and 29 ng/mL (2). 1. IOM ([place] of [employer]). 2010. Dietary reference intakes for calcium and D. [place]: The National Academies Press. 2. Lynda STAHL, Keely OLIVEROS, Leandra LOPEZ, et al. Evaluation, treatment, and prevention of vitamin D deficiency: an Endocrine Society clinical practice guideline. JCEM. 2010; 96(7):1911-30. Performed By: #### C BC #### [facility] [address] [place] [address] Dr. Ashlie Hills GLYCOHEMOGLOBIN A1Con 2021 ADA RECOMMENDATION SEE BELOW Normal [facility] Comment on above: Result Comment: ADA RECOMMENDED LIMIT 4.0 - 6.0 ADA THERAPEUTIC TARGET < 7.0 ACTION SUGGESTED > 7.0 Performed By: #### C VDAGS #### [facility] [address] [place] [address] Dr. Ashlie Hills Glucose [Mass/Vol] 295 mg/dL Normal [facility] Comment on above: Performed By: #### C VDAGS #### [facility] [address] [place] [address] Dr. Ashlie Hills HbA1c (Bld) [Mass fraction] 11.9 % Critically high 4.5-6.2 [facility] Comment on above: Performed By: #### C VDAGS #### [facility] [address] [place] [address] Dr. Ashlie Hills HEMOGRAM AND PLATELon 2021 Hematocrit (Bld) [Volume fraction] 56.3 % Critically high 36.0-48.0 [facility] Comment on above: Performed By: #### C VDAGS #### [facility] [address] [place] [address] Dr. Ashlie Hills Hemoglobin (Bld) [Mass/Vol] 18.0 g/dL Critically high 12.0-16.0 [facility] Comment on above: Performed By: #### C VDAGS #### [facility] [address] [place] [address] Dr. Ashlie Hills MCH (RBC) [Entitic mass] 29.5 pg Normal 26.7-34.0 [facility] Comment on above: Performed By: #### C VDAGS #### [facility] [address] [place] [address] Dr. Ashlie Hills MCHC (RBC) [Mass/Vol] 32.0 g/dL Normal 29.9-35.2 [facility] Comment on above: Performed By: #### C VDAGS #### [facility] [address] [place] [address] Dr. Ashlie Hills MCV (RBC) [Entitic vol] 92.1 fL Normal 81.0-99.0 [facility] Comment on above: Performed By: #### C VDAGS #### [facility] [address] [place] [address] Dr. Ashlie Hills PLT 123 103/ul Critically low 150-450 [facility] Comment on above: Performed By: #### C VDAGS #### [facility] [address] [place] [address] Dr. Ashlie Hills RBC 6.11 106/ul Critically high 4.20-5.40 [facility] Comment on above: Performed By: #### C VDAGS #### [facility] [address] [place] [address] Dr. Ashlie Hills WBC 16.4 103/ul Critically high 4.0-11.0 [facility] Comment on above: Performed By: #### C VDAGS #### [facility] [address] [place] [address] Dr. Ashlie Hills LIPID PROFILEon 03-03-2022 CHOL-HDL RATIO NORM SEE BELOW Normal [facility] Comment on above: Result Comment: 3.3 - 4.4 LOW RISK 4.4 - 7.1 AVERAGE RISK 7.1 - 11.0 MODERATE RISK >11.0 HIGH RISK Performed By: #### C VDAGS #### [facility] [address] [place] [address] Dr. Ashlie Hills Cholesterol [Mass/Vol] 159 mg/dL Normal <=200 [facility] Comment on above: Performed By: #### C VDAGS #### [facility] [address] [place] [address] Dr. Ashlie Hills Cholesterol in HDL [Mass/Vol] 40 mg/dL Normal 40-60 [facility] Comment on above: Performed By: #### C VDAGS #### [facility] [address] [place] [address] Dr. Ashlie Hills Cholesterol in LDL [Mass/Vol] 81.8 mg/dL Normal [facility] Comment on above: Performed By: #### C VDAGS #### [facility] [address] [address] [address] Ashlie Hills Cholesterol.total/Ch olesterol in HDL [Mass ratio] 4.0 {ratio} Normal [facility] Comment on above: Performed By: #### C VDAGS #### [facility] [address] [address] [address] Ashlie Hills HDL NORMAL > or = 60 mg/dl - LOW CARDIOVASCULAR RISK <40 mg/dl - HIGH CARDIOVASCULAR RISK Normal [facility] Comment on above: Performed By: #### C VDAGS #### [facility] [address] [address] [address] Ashlie Hills LDL CALC NORMAL SEE BELOW Normal [facility] Comment on above: Result Comment: <100 mg/dl OPTIMAL 100 - 129 mg/dl NEAR OR ABOVE OPTIMAL 130 - 159 mg/dl BORDERLINE HIGH 160 - 189 mg/dl HIGH >190 mg/dl VERY HIGH Performed By: #### C VDAGS #### [facility] [address] [address] [address] Ashlie Hills Triglyceride [Mass/Vol] 186 mg/dL Critically high <=150 [facility] Comment on above: Performed By: #### C VDAGS #### [facility] [address] [address] [address] Ashlie Hills VLDL CALC 37.2 mg/dL Normal [facility] Comment on above: Performed By: #### C VDAGS #### [facility] [address] [address] [address] Ashlie Hills RENAL FUNCTION PANELon 03-03 Albumin [Mass/Vol] 3.1 g/dL Critically low 3.4-5.0 [facility] Comment on above: Performed By: #### C BC #### [facility] [address] [address] [address] Ashlie Hills Calcium [Mass/Vol] 9.2 mg/dL Normal 8.5-10.1 [facility] Comment on above: Performed By: #### C BC #### [facility] [address] [address] [address] Ashlie Hills Chloride [Moles/Vol] 102 mmol/L Normal 98-107 [facility] Comment on above: Performed By: #### C BC #### [facility] [address] [address] [address] Ashlie Hills CO2 [Moles/Vol] 31.9 mmol/L Normal 21.0-32.0 [facility] Comment on above: Performed By: #### C BC #### [facility] [address] [address] [address] Ashlie Hills Creatinine [Mass/Vol] 0.68 mg/dL Normal 0.55-1.02 [facility] Comment on above: Performed By: #### C BC #### [facility] [address] [address] [address] Ashlie Hills EGFR-AF TURKISH >60 Normal >=60 [facility] Comment on above: Performed By: #### C BC #### [facility] [address] [address] [address] Ashlie Hills EGFR-NON AF TURKISH >60 Normal >=60 [facility] Comment on above: Performed By: #### C BC #### [facility] [address] [address] [address] Ashlie Hills Glucose [Mass/Vol] 131 mg/dL Critically high 74-106 [facility] Comment on above: Performed By: #### C BC #### [facility] [address] [address] [address] Ashlie Hills Phosphate [Mass/Vol] 4.0 mg/dL Normal 2.6-4.7 [facility] Comment on above: Performed By: #### C BC #### [facility] [address] [address] [address] Ashlie Hills Potassium [Moles/Vol] 4.0 mmol/L Normal 3.5-5.1 [facility] Comment on above: Performed By: #### C BC #### [facility] [address] [place] [address] Dr. Ashlie Hills Sodium [Moles/Vol] 141 mmol/L Normal 136-145 [facility] Comment on above: Performed By: #### C BC #### [facility] [address] [place] [address] Dr. Ashlie Hills Urea nitrogen [Mass/Vol] 17.0 mg/dL Normal 7.0-18.0 [facility] Comment on above: Performed By: #### C BC #### [facility] [address] [place] [address] Dr. Ashlie Hills UA RANDOM W/MICROSCOPICon BACTERIA NONE SEEN Normal NONE SEEN [facility] Comment on above: Performed By: #### I NFLUAB #### [facility] [address] [place] [address] Dr. Ashlie Hills Bilirubin Ql (U) Negative Normal NEGATIVE [facility] Comment on above: Performed By: #### I NFLUAB #### [facility] [address] [place] [address] Dr. Ashlie Hills CAST NONE SEEN Normal NONE SEEN [facility] Comment on above: Performed By: #### I NFLUAB #### [facility] [address] [place] [address] Dr. Ashlie Hills Clarity (U) CLEAR Normal CLEAR [facility] Comment on above: Performed By: #### I NFLUAB #### [facility] [address] [place] [address] Dr. Ashlie Hills Color (U) YELLOW Normal YELLOW [facility] Comment on above: Performed By: #### I NFLUAB #### [facility] [address] [place] [address] Dr. Ashlie Hills Crystals LM Nom (Urine sed) NONE SEEN Normal NONE SEEN [facility] Comment on above: Performed By: #### I NFLUAB #### [facility] [address] [place] [address] Dr. Ashlie Hills Epithelial cells LM Ql (Urine sed) FEW Abnormal NONE SEEN /RARE [facility] Comment on above: Performed By: #### I NFLUAB #### [facility] [address] [address] [address] Ashlie Hills Glucose Ql (U) Negative Normal NEGATIVE [facility] Comment on above: Performed By: #### I NFLUAB #### [facility] [address] [address] [address] Ashlie Hills Hemoglobin Ql (U) Negative Normal NEGATIVE [facility] Comment on above: Performed By: #### I NFLUAB #### [facility] [address] [address] [address] Ashlie Hills Ketones Ql (U) Negative Normal NEGATIVE [facility] Comment on above: Performed By: #### I NFLUAB #### [facility] [address] [place] [address] Dr. Ashlie Hills LEUKOCYTES Negative Normal NEGATIVE [facility] Comment on above: Performed By: #### I NFLUAB #### [facility] [address] [place] [address] Dr. Ashlie Hills MUCOUS NONE SEEN Normal NONE SEEN [facility] Comment on above: Performed By: #### I NFLUAB #### [facility] [address] [place] [address] Dr. Ashlie Hills Nitrite Ql (U) Negative Normal NEGATIVE [facility] Comment on above: Performed By: #### I NFLUAB #### [facility] [address] [place] [address] Dr. Ashlie Hills pH (U) 5.5 [pH] Normal 5-9 [facility] Comment on above: Performed By: #### I NFLUAB #### [facility] [address] [place] [address] Dr. Ashlie Hills RBC 0-2 Normal 0-2 [facility] Comment on above: Performed By: #### I NFLUAB #### [facility] [address] [place] [address] Dr. Ashlie Hills SPEC GRAVITY >=1.030 Abnormal 1.005-<=1.025 [facility] Comment on above: Performed By: #### I NFLUAB #### [facility] [address] [place] [address] Dr. Ashlie Hills UA PROTEIN 100 mg/dl Abnormal NEGATIVE/ TRACE [facility] Comment on above: Performed By: #### I NFLUAB #### [facility] [address] [place] [address] Dr. Ashlie Hills Urobilinogen Qn (U) 0.2 {Little'U}/dL Normal 0.2 - 1. 0 [facility] Comment on above: Performed By: #### I NFLUAB #### [facility] [address] [place] [address] Dr. Ashlie Hills WBC NONE SEEN Normal NONE SEEN [facility] Comment on above: Performed By: #### I NFLUAB #### [facility] [address] [place] [address] Dr. Ashlie iHlls URIC ACID SERUMon 03-03-2022 Urate [Mass/Vol] 5.0 mg/dL Normal 2.6-6.0 [facility] Comment on above: Performed By: #### I NFLUAB #### [facility] [address] [place] [address] Dr. Ashlie Hills URINE T PROTEIN CREAT RATIOo n 03-03-2022 Protein (U) [Mass/Vol] 77.9 mg/dL Critically high <=12.0 [facility] Comment on above: Performed By: #### C VDAGS #### [facility] [address] [place] [address] Dr. Ashlie Hills UR PROT CREAT RAT 0.[address] [facility] Comment on above: Performed By: #### C VDAGS #### [facility] [address] [place] [address] Dr. Ashlie Hills URINE CREAT 175.15 mg/dL Normal 20.00-300.00 [facility] Comment on above: Performed By: #### C VDAGS #### [facility] [address] [place] [address] Dr. 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 Your Care Team Attending Physician - REGLA PHIPPS, Julia oJya Primary Care Physician - MCKAYLA BLAS CNP Referring Physician - MCKAYLA BLAS CNP This Is Your Medications List Contact [...] A/P Where: [facility] [address], [place] [address]- [phone] Medications What How Much When Instructions Unchanged [...] Urnls Dip Stick Auto w/o Microscopy POC 89981 (02/06/2022) Bilirubin Urine Dipstick - Negative Blood Urine Dipstick - Negative Glucose Urine Dipstick - 2+ 500 mg/dl Ketones Urine Dipstick - Negative Leukocytes Urine Dipstick - Negative Nitrite Urine Dipstick - Negative Protein Urine Dipstick - 3+ (300 mg/dl) Specific [place] Urine Dipstick - >=1.030 Urine Appearance Urine [...] is caused (more content not included)... Normal [facility] Patient Educationon 02-07-20 Patient Education Obstetrics and [...] Take ove (more content not included)... Normal [facility] Office/Clinic Noteon 02-06-2022 Urology Office/Clinic Note [...] of protein. Recommended pt to see a cinnamon grinder due to high protein levels in the urine. All questions/concerns were discussed. Pt to call office if she encounters any issues prior. Pt acknowledges understanding. Other obstructive and reflux uropathy (N13.8: Other obstructive and reflux uropathy) Follow-up With When Contact Information REGLA PHIPPS, Julia Joya, GEMA In 6 months [facility] [address] [place] [address]- [phone] Additional Instructions: w/ repeat CT A/P Patient Education Overactive Bladder, Adult I, Enedelia Mendoza, personally scribed for Dr. Vargas on 02/06/2022 11:42:16. . Documentation recorded by the scribeEnedelia, accurately reflects the services(s) I performed and decisions made by me. Authenticated by Dr. Vargas on 02/06/2022 11:45:18. Problem List/Past Medical History Ongoing Adrenal mass 1 cm to 4 cm in diameter Arthritis Asthma COPD type A Headache Hypertension Kidney stone Left flank pain (more content not included)... Normal [facility] Comment on above: Result Comment: Elec tronically Signed By: Julia VARGAS MD\.br\Date and Time Signed: 02/06/22 11:45 EDT\.br\Electronically Co-Signed By: Enedelia Mendoza\Luz Mariabr\Date and Time Co-Signed: 02/06/22 11:42 EDT CULTURE URINEon 12-25-2021 CULTURE URINE Culture Observations: GREATER THAN TWO ORGANISMS PRESENT, HEAVILY MIXED. PLEASE RESUBMIT CLEAN CATCH MID-STREAM URINE IF CLINICALLY INDICATED. Normal [facility] Comment on above: Performed By: #### I NFLUAB #### [facility] [address] [address] [address] Ashlie Hills CBC AUTO DIFFon 12-24-2021 BASO # 0.1 103/ul Normal 0.0-0.1 [facility] Comment on above: Performed By: #### C BC #### [facility] [address] [address] [address] Ashlie Hills Basophils/100 WBC (Bld) 0.5 % Normal 0.2-2.0 [facility] Comment on above: Performed By: #### C BC #### [facility] [address] [address] [address] Ashlie Hills EO # 0.4 103/ul Normal 0.0-0.7 [facility] Comment on above: Performed By: #### C BC #### [facility] [address] [place] [address] Dr. Ashlie Hills Eosinophils/100 WBC (Bld) 2.4 % Normal 0.9-7.0 [facility] Comment on above: Performed By: #### C BC #### [facility] [address] [place] [address] Dr. Ashlie Hills Erythrocyte distribution width (RBC) [Ratio] 14.1 % Normal 11.0-15.0 [facility] Comment on above: Performed By: #### C BC #### [facility] [address] [place] [address] Dr. Ashlie Hills Hematocrit (Bld) [Volume fraction] 55.9 % Critically high 36.0-48.0 [facility] Comment on above: Performed By: #### C BC #### [facility] [address] [place] [address] Dr. Ashlie Hills Hemoglobin (Bld) [Mass/Vol] 17.9 g/dL Critically high 12.0-16.0 [facility] Comment on above: Performed By: #### C BC #### [facility] [address] [place] [address] Dr. Ashlie Hills IG # 0.06 10e3/ul Critically high 0.00-0.03 [facility] Comment on above: Performed By: #### C BC #### [facility] [address] [place] [address] Dr. Ashlie Hills IG % 0.4 % Normal 0.0-0.5 [facility] Comment on above: Performed By: #### C BC #### [facility] [address] [place] [address] Dr. Ashlie Hills LYMPH # 5.8 103/ul Critically high 1.2-3.8 [facility] Comment on above: Performed By: #### C BC #### [facility] [address] [place] [address] Dr. Ashlie Hills Lymphocytes/100 WBC (Bld) 35.4 % Normal 20.5-60.0 [facility] Comment on above: Performed By: #### C BC #### [facility] [address] [place] [address] Dr. Ashlie Hills MANUAL DIFF REQ NO Normal [facility] Comment on above: Performed By: #### C BC #### [facility] [address] [place] [address] Dr. Ashlie Hills MCH (RBC) [Entitic mass] 29.4 pg Normal 26.7-34.0 [facility] Comment on above: Performed By: #### C BC #### [facility] [address] [place] [address] Dr. Ashlie Hills MCHC (RBC) [Mass/Vol] 32.0 g/dL Normal 29.9-35.2 [facility] Comment on above: Performed By: #### C BC #### [facility] [address] [place] [address] Dr. Ashlie Hills MCV (RBC) [Entitic vol] 91.8 fL Normal 81.0-99.0 [facility] Comment on above: Performed By: #### C BC #### [facility] [address] [place] [address] Dr. Ashlie Hills MONO # 0.8 103/ul Normal 0.3-0.8 [facility] Comment on above: Performed By: #### C BC #### [facility] [id number] Ashlie Hills Monocytes/100 WBC (Bld) 4.8 % Normal 1.7-12.0 [facility] Comment on above: Performed By: #### C BC #### [facility] [address] [address] [address] Ashlie Hills NEUT # 9.3 103/ul Critically high 1.4-6.5 [facility] Comment on above: Performed By: #### C BC #### [facility] [address] [address] [address] Ashlie Hills Neutrophils/100 WBC (Bld) 56.5 % Normal 43.0-75.0 [facility] Comment on above: Performed By: #### C BC #### [facility] [address] [place] [address] Dr. Ashlie Hills Platelet mean volume (Bld) [Entitic vol] 12.9 fL Normal 9.5-13.5 [facility] Comment on above: Performed By: #### C BC #### [facility] [address] [address] [address] Ashlie Hills PLT 127 103/ul Critically low 150-450 [facility] Comment on above: Performed By: #### C BC #### [facility] [address] [place] [address] Dr. Ashlie Hills RBC 6.09 106/ul Critically high 4.20-5.40 [facility] Comment on above: Performed By: #### C BC #### [facility] [address] [place] [address] Dr. Ashlie Hills WBC 16.4 103/ul Critically high 4.0-11.0 [facility] Comment on above: Performed By: #### C BC #### [facility] [address] [place] [address] ABD/PELVIS WO CONon [...] Severe right hip degenerative change. Normal [facility] ER URINE PROFILEon 2 Bilirubin Ql (U) Negative Normal NEGATIVE [facility] Comment on above: Performed By: #### Tracey LYMAN UMHARRIETRO #### [facility] [address] [address] [address] Ashlie Hills Clarity (U) CLEAR Normal CLEAR [facility] Comment on above: Performed By: #### Tracey LYMAN UMICRO #### [facility] [address] [address] [address] Ashlie Hills Color (U) DK. ORANGE Abnormal YELLOW [facility] Comment on above: Performed By: #### MADELINE DIAZRO #### [facility] [address] [place] [address] Dr. Ashlie HOBBS A micrscopic examination will be performed if indicated. Normal [facility] Comment on above: Performed By: #### PEREZ DIAZICRO #### [facility] [address] [address] [address] Ashlie Hills Glucose Ql (U) 250 mg/dl Abnormal NEGATIVE [facility] Comment on above: Performed By: #### MADELINE DIAZRO #### [facility] [address] [place] [address] Dr. Ashlie Hills Hemoglobin Ql (U) Negative Normal NEGATIVE [facility] Comment on above: Performed By: #### MADELINE DIAZRO #### [facility] [address] [address] [address] Ashlie Hills Ketones Ql (U) Negative Normal NEGATIVE [facility] Comment on above: Performed By: #### MADELINE DIAZRO #### [facility] [address] [place] [address] Dr. Ashlie Hills LEUKOCYTES Negative Normal NEGATIVE [facility] Comment on above: Performed By: #### Tracey LYMAN UMICRO #### [facility] [address] [address] [address] Ashlie Hills Nitrite Ql (U) Negative Normal NEGATIVE [facility] Comment on above: Performed By: #### Tracey LYMAN UMICRO #### [facility] [address] [place] [address] Dr. Ashlie Hills pH (U) 5.0 [pH] Normal 5-9 [facility] Comment on above: Performed By: #### MADELINE DIAZRO #### [facility] [address] [place] [address] Dr. Ashlie Hills Protein (U) [Mass/Vol] 100 mg/dL Abnormal NEGATIVE/ TRACE [facility] Comment on above: Performed By: #### PEREZ DIAZICRO #### [facility] [address] [place] [address] Dr. Ashlie Hills SPEC GRAVITY >=1.030 Abnormal 1.005-<=1.025 [facility] Comment on above: Performed By: #### MADELINE DIAZRO #### [facility] [address] [place] [address] Dr. Ashlie Hills UR MICRO IND INDICATED Normal [facility] Comment on above: Performed By: #### Tracey LYMAN UMICRO #### [facility] [address] [place] [address] Dr. Ashlie Hills Urobilinogen Qn (U) 1.0 {Little'U}/dL Normal 0.2 - 1. 0 [facility] Comment on above: Performed By: #### MADELINE DIAZRO #### [facility] [address] [place] [address] Dr. Ashlie Hills PROF CHEM 8 (BAS METB)on Anion gap [Moles/Vol] 12.1 mmol/L Normal [facility] Comment on above: Performed By: #### I NFLUAB #### [facility] [address] [place] [address] Dr. Ashlie Hills Calcium [Mass/Vol] 9.0 mg/dL Normal 8.5-10.1 [facility] Comment on above: Performed By: #### I NFLUAB #### [facility] [address] [address] [address] Ashlie Hills Chloride [Moles/Vol] 101 mmol/L Normal 98-107 [facility] Comment on above: Performed By: #### I NFLUAB #### [facility] [address] [address] [address] Ashlie Hills CO2 [Moles/Vol] 29.1 mmol/L Normal 21.0-32.0 [facility] Comment on above: Performed By: #### I NFLUAB #### [facility] [address] [address] [address] Ashlie Hills Creatinine [Mass/Vol] 0.86 mg/dL Normal 0.55-1.02 [facility] Comment on above: Performed By: #### I NFLUAB #### [facility] [address] [address] [address] Ashlie Hills EGFR-AF TURKISH >60 Normal >=60 [facility] Comment on above: Performed By: #### I NFLUAB #### [facility] [address] [place] [address] Dr. Ashlie Hills EGFR-NON AF TURKISH >60 Normal >=60 [facility] Comment on above: Performed By: #### I NFLUAB #### [facility] [address] [address] [address] Ashlie Hills Glucose [Mass/Vol] 236 mg/dL Critically high 74-106 [facility] Comment on above: Performed By: #### I NFLUAB #### [facility] [address] [address] [address] Ashlie Hills Potassium [Moles/Vol] 4.2 mmol/L Normal 3.5-5.1 [facility] Comment on above: Performed By: #### I NFLUAB #### [facility] [address] [address] [address] Ashlie Hills Sodium [Moles/Vol] 138 mmol/L Normal 136-145 [facility] Comment on above: Performed By: #### I NFLUAB #### [facility] [address] [address] [address] Ashlie Hills Urea nitrogen [Mass/Vol] 11.0 mg/dL Normal 7.0-18.0 [facility] Comment on above: Performed By: #### I NFLUAB #### [facility] [address] [place] [address] Dr. Ashlie Hills Urea nitrogen/Creatinine [Mass ratio] 12.8 mg/mg Normal [facility] Comment on above: Performed By: #### I NFLUAB #### [facility] [address] [place] [address] Dr. Ashlie Hills URINE MICROSCOPIC ONLYon BACTERIA SMALL Abnormal NONE SEEN [facility] Comment on above: Performed By: #### Tracey LYMAN UMICRO #### [facility] [address] [place] [address] Dr. Ashlie Hills Bacteria identified Cx Nom (U) INDICATED Normal [facility] Comment on above: Performed By: #### Tracey LYMAN UMICRO #### [facility] [address] [place] [address] Dr. Ashlie Hills CAST NONE SEEN Normal NONE SEEN [facility] Comment on above: Performed By: #### Tracey LYMAN UMICRO #### [facility] [address] [place] [address] Dr. Ashlie Hills Crystals LM Nom (Urine sed) NONE SEEN Normal NONE SEEN [facility] Comment on above: Performed By: #### Tracey LYMAN UMICRO #### [facility] [address] [place] [address] Dr. Ashlie Hills Epithelial cells LM Ql (Urine sed) MODERATE Abnormal NONE SEEN /RARE [facility] Comment on above: Performed By: #### Tracey LYMAN UMICRO #### [facility] [address] [place] [address] Dr. Ashlie Hills MUCOUS NONE SEEN Normal NONE SEEN [facility] Comment on above: Performed By: #### Tracey LYMAN UMICRO #### [facility] [address] [place] [address] Dr. Ahslie Hills RBC 0-2 Normal 0-2 [facility] Comment on above: Performed By: #### E RUR, UMICRO #### [facility] [address] [address] [address] Ashlie Hills WBC 0-2 Abnormal NONE SEEN [facility] Comment on above: Performed By: #### E RUR, UMICRO #### [facility] [address] [address] [address] Ashlie Hills YEAST PRESENT Abnormal NONE SEEN [facility] Comment on above: Performed By: #### E RUR, UMICRO #### [facility] [address] [address] [address] Ashlie Hills HIP RIGHT 1 OR 2 VWS WITH PE LVISon 07-20-2020 HIP RIGHT 1 OR 2 VWS WITH PELVIS [facility] Department of Radiology [address] [place] [id number] Patient Name: MITZI MACIAS : 1970 Sex: F Age: Race: White Pt. Location: Patient Status: O Ordered Date: 07/20/2020 1:45:00 PM Completed Date: 07/20/2020 01:57 PM Requesting Provider: LIZ EISENBERG Attending Provider: LIZ EISENBERG Report Copy To: MCKAYLA BLAS Signs & Symptoms: M25.551 Pain in right [...] MRI. Electronically signed: Pipo Acevedo. Transcribed by: [email or web address], User Resident: Electronically Signed by: PIPO ACEVEDO @ 07/20/2020 03:45 PM Normal The [facility] Comment on above: Order Comment: evalu ate Vital Signs Date Time Vital Sign Value Performing Clinician Facility 03-08-2022 15:00-0400 Body height 170.18 cm Stephanie Tico Other [facility] Other 03-08-2022 15:00-0400 Body temperature 97.6 [degF] Stephanie Tico Other [facility] Other 03-08-2022 15:00-0400 Diastolic blood pressure 72 mm[Hg] Stephanie Tico Other [facility] Other 03-08-2022 15:00-0400 Respiratory rate 20 /min Stephanie Tico Other [facility] Other 03-08-2022 15:00-0400 SaO2% (BldA) [Mass fraction] 91 % Stephanie Tico Other [facility] Other 03-08-2022 15:00-0400 Systolic blood pressure 131 mm[Hg] Stephanie Tico Other [facility] Other 02-20-2022 09:20-0400 Body height 170.18 cm Stephanie Tico Other [facility] Other 02-20-2022 09:20-0400 Body temperature 96.5 [degF] Stephanie Tico Other [facility] Other 02-20-2022 09:20-0400 Diastolic blood pressure 69 mm[Hg] Stephanie Tico Other [facility] Other 02-20-2022 09:20-0400 Respiratory rate 20 /min Stephanie Tico Other [facility] Other 02-20-2022 09:20-0400 SaO2% (BldA) [Mass fraction] 91 % Stephanie Tico Other [facility] Other 02-20-2022 09:20-0400 Systolic blood pressure 129 mm[Hg] Stephanie Tico Other [facility] Other 02-06-2022 10:24-0400 Blood Pressure Location Julia [employer] [facility] 02-06-2022 10:24-0400 Diastolic blood pressure 76 mm[Hg] Julia VARGAS [facility] 02-06-2022 10:24-0400 Heart rate 70 /min Julia VARGAS [facility] 02-06-2022 10:24-0400 Respiratory rate 16 /min Julia VARGAS [facility] 02-06-2022 10:24-0400 Systolic blood pressure 134 mm[Hg] [facility] Encounter Date Encounter Type Care Provider Facility Start: 04-22-2024 ambulatory GAVIOTA Maysi ty:[facility] Villalobos Start: 08-17-2023 Refill Mckayla Aichholz [employer] Work Phone: [facility] Comment on above: Vaginal yeast infect ion (Primary Dx) Start: 08-14-2023 Refill Mckayla Aichholz [employer] Work Phone: [facility] Comment on above: Type 2 diabetes asiya itus with unspecified complications (CMS/[facility]); Edema, unspecified; Edema Start: 07-10-2023 End: 07-10-2023 ambulatory MCKAYLA AICHHOLZ Not Available Start: 12-05-2022 ambulatory MATEUSZ POSADA . Facility:[facility] Start: 12-05-2022 End: 12-06-2022 Evaluation and management of inpatient UMBERTO HEALYP . Facility:[facility] Start: 11-23-2022 End: 11-23-2022 ambulatory HANDYMAN MCKAYLA AICHHOLZ Facility:[facility] Start: 11-22-2022 End: 11-23-2022 ambulatory HANDYMAN MCKAYLA AICHHOLZ Facility:[facility] Start: 11-17-2022 End: 11-18-2022 ambulatory SUBHASH GASPAR . Facility:[facility] Start: 11-15-2022 End: 11-16-2022 ambulatory GAVIOTA VEGA Facility:[facility] Start: 11-15-2022 End: 11-15-2022 Patient encounter procedure [facility]OTA [facility]GA [facility] Start: 10-05-2022 End: 10-05-2022 ambulatory MARIANO DIAB . Facility:[facility] Start: 09-21-2022 End: 09-21-2022 ambulatory HANDYMAN MCKAYLA AICHHOLZ Facility:[facility] Start: 09-14-2022 ambulatory RAFAEL GONGORA Facilit y:[facility] Start: 08-24-2022 End: [address] CHAPARRO MORTENSEN . Facility:[facility] Start: 08-21-2022 End: 08-22-2022 [facility] Start: 07-27-2022 End: 07-28-2022 ambulatory CECILIA SILVESTRETray . Facility:[facility] Start: 07-18-2022 End: 07-19-2022 ambulatory CECILIA SILVESTRETray . Facility:[facility] Start: 07-18-2022 End: 07-19-2022 ambulatory [facility] Start: 07-06-2022 End: 07-06-2022 ambulatory HANDYMAN MCKAYLA BLAS Facility:[facility] Start: 05-11-2022 End: 05-12-2022 ambulatory GIL VALENZUELA . Facility:[facility] Start: 04-25-2022 End: 04-25-[address] CHAPARRO MORTENSEN . Facility:[facility] Start: 04-20-2022 End: 04-21-2022 ambulatory GIL VALENZUELA . Facility:[facility] Start: 03-08-2022 End: 03-08-2022 ambulatory Stephanie Tico Other [facility] Other Start: 03-08-2022 Office outpatient vi sit 15 minutes Stephanie Tico [facility] Start: 03-03-2022 End: 03-04-2022 ambulatory HANDYMAN MCKAYLA ELIZABETHZ Facility:[facility] Start: 02-20-2022 End: 02-20-2022 ambulatory Stephanie Tico Other [facility] Other Start: 02-20-2022 Office outpatient ne w 45 minutes Stephanie Tico [facility] Start: 02-06-2022 ambulatory GAVIOTA VEGA Facility :[facility] Start: 02-06-2022 End: 02-07-2022 ambulatory MCKAYLA BLAS Facility:[facility] Start: 02-06-2022 End: 02-06-2022 Patient encounter procedure Julia VARGAS [facility] Start: 01-19-2022 End: 01-20-2022 ambulatory GIL VALENZUELA . Facility:[facility] Start: 01-05-2022 ambulatory GAVIOTA VEGA Facility :[facility] Start: 12-24-2021 End: 12-24-2021 ambulatory OLE RAMIREZ Facility: Start: 08-26-2020 End: 09-10-2020 Patient encounter procedure MARY TAVERAS Facility:[facility] Start: 10-30-2019 End: 10-30-2019 Emergency department patient visit JAMES Reis [facility] Start: 10-30-2019 End: 10-30-2019 Emergency department patient visit James Desouza [facility] Emergency Department Start: 11-02-2016 Preoperative state Stephanie Tico Other [facility] Other Procedures Date Procedure Procedure Detail Performing Clinician Start: 11-22-2022 Mammography Mckayla clifford [employer] Work Phone: Start: 10-08-2015 Microscopic observat ion [Identifier] in Cervix by Cyto stain Mckayla Blas NP Work Phone: H/O: hysterectomy Julia LARA Laparoscopic cholecystectomy Julia VARGAS Operative procedure on foot Julia VARGAS Plan of Treatment Date Care Activity Detail Author Start: 08-03-2025 Screening for malign ant neoplasm of colon [facility] Start: 11-24-2023 Urine screening for protein Diabetes: Urine Protein Screening [facility] Start: 11-23-2023 Screening for malign ant neoplasm of breast Mammogram [facility] Start: 10-15-2023 End: 10-15-2023 Patient encounter procedure 10/15/2023 4:30 PM EDT Office Visit [facility] [address] [place] [id number] Mckayla Blas NP [address] [place] [address] [facility] Start: 08-09-2023 Hemoglobin A1c measurement Diabetes: Hemoglobin A1C [facility] Start: 05-27-2021 Glaucoma screening Diabetes: R etinopathy Screening [facility] Start: 03-09-2020 Influenza vaccination Flu vacc ine (Season Ended) [place], [place] Start: 10-07-2018 Screening for malign ant neoplasm of cervix [facility] Start: 2010 Lipid panel Lipid screen [place], [place] Start: 2000 Screening for malign ant neoplasm of cervix HPV/Cotest [facility] Start: 1991 Screening for malign ant neoplasm of cervix Cervical cancer screen [place], [place] Start: 1989 DTaP/Tdap/Td vaccine (1 - Tdap) DTaP/Tdap/Td vaccine ( - Tdap) [place], [place] Start: 1985 HIV screening [facility] screen [facility] [place], [place] Start: 1970 Medicare Annual Well ness (AWV) Medicare Annual Wellness (AWV) [facility] Start: 1970 Screening for malign ant neoplasm of colon [facility] Immunizations Immunization Date Immunization Notes Care Provider Fa [facility] 05-18-2023 influenza, injectabl e, quadrivalent, contains preservative Mckayla Blas NP Work Phone: [facility] 07-19-2021 SARS-CoV-2 (COVID-19 ) mRNA BNT-162b2 vax [employer] [facility] 10-28-2020 SARS-CoV-2 (COVID-19 ) mRNA BNT-162b2 vax [employer] [facility] 10-08-2020 SARS-CoV-2 (COVID-19 ) mRNA BNT-162b2 vax [employer] [facility] Payers Date Payer Category Payer Medicaid MEDICAID [facility] [id number] 2018-Present [phone] [address] [place] [address] Medicaid [id number] 2017 Medicare [employer] MEDICARE UHC DUAL COMPLETE [id number] 2017-Present [address] [place] [address] [id number] 1970 Unknown [id number] 2.16.840.1.599801.3.579.2. 647 1970 Unknown [id number] 2.16.840.1.960908.3.579.2. 727 1970 Unknown [id number] 2.16.840.1.932968.3.579.2. 727 1970 Unknown [id number] 2.16.840.1.385584.3.579.2. 727 1970 Unknown [id number] 2.16.840.1.710850.3.579.2. 727 1970 Unknown [id number] 2.16.840.1.631550.3.579.2. 593 1970 Unknown [id number] 2.16.840.1.377519.3.579.2. 593 1970 Unknown [id number] 2.16.840.1.050958.3.579.2. 593 1970 Unknown [id number] 2.16.840.1.276769.3.579.2. 593 1970 Unknown [id number] 2.16.840.1.064442.3.579.2. 593 1970 Unknown [id number] 2.16.840.1.012023.3.579.2. 593 1970 Unknown [id number] 2.16.840.1.457468.3.579.2. 593 1970 Unknown [id number] 2.16.840.1.083477.3.579.2. 593 1970 Unknown [id number] 2.16.840.1.194571.3.579.2. 593 1970 Unknown [id number] 2.16.840.1.258322.3.579.2. 593 1970 Unknown [id number] 2.16.840.1.718863.3.579.2. 593 1970 Unknown [id number] 2.16.840.1.024353.3.579.2. 593 1970 Unknown [id number] 2.16.840.1.777620.3.579.2. 593 1970 Unknown [id number] 2.16.840.1.178682.3.579.2. 593 1970 Unknown [id number] 2.16.840.1.399491.3.579.2. 593 1970 Unknown [id number] 2.16.840.1.137065.3.579.2. 593 1970 Unknown [id number] 2.16.840.1.372023.3.579.2. 593 1970 Unknown [id number] 2.16.840.1.178475.3.579.2. 593 1970 Unknown [id number] 2.16.840.1.124278.3.579.2. 593 1970 Unknown [id number] 2.16.840.1.255690.3.579.2. 593 1970 Unknown [id number] 2.16.840.1.452707.3.579.2. 593 1970 Unknown [id number] 2.16.840.1.613803.3.579.2. 593 1970 Unknown [id number] 1959 Medicaid [id number] 1959 Private Health Insurance [id number] 1959 Unknown [id number] Social History Date Type Detail Facility Start: 02-17-2014 End: 07-10-2023 Tobacco smoking status NHIS Current every day smoker [place], [place] Start: 02-17-1994 History of tobacco use Cigarette Smo ker [place] Start: 02-17-2014 End: 07-10-2023 Cigarettes smoked current (pack per day) - Reported [place], [place] Start: 02-17-2014 Alcohol intake Current drinke r of alcohol (finding) [place] Start: 02-17-2014 Alcohol Comment Rare [facility] [place], [place] Start: 1970 Sex Assigned At Not on file [place] Exposure to SARS-CoV -2 (event) Unable to assess [place], [place] Start: 02-06-2022 Tobacco smoking status Smoker (findi ng) [facility] Start: 07-10-2023 Sex Assigned At [facility] Start: 11-15-2022 Tobacco smoking status Heavy t obacco smoker (finding) [facility] Start: 07-10-2023 Tobacco use and exposure Smoke less tobacco non-user [facility] Start: 07-10-2023 Alcohol intake Lifetime non-d adrien (finding) [facility] Within the last year , have you been afraid of your partner or ex-partner? No [facility] Do you belong to any clubs or organizations such as catholic groups, unions, fraternal or athletic groups, or school groups? Yes [facility] Are you now , , , , never or living with a partner? [facility] How often to you hav e a drink containing alcohol? Monthly or less [facility] How many standard dr inks containing alcohol do you have on a typical day? 1 or 2 [facility] How often do you hav e 6 or more drinks on 1 occasion? Less than monthly [facility] How hard is it for y ou to pay for the very basics like food, housing, medical care, and heating Not hard at all [facility] Do you feel stress - tense, restless, nervous, or anxious, or unable to sleep at night because your mind is troubled all the time - these days [OSQ] Only a little [facility] (I/We) worried wheth er (my/our) food would run out before (I/we) got money to buy more. Never true [facility] Medical Equipment Procedure Code Equipment Code Equipment Original Text Equi pment Identifier Dates Inject 5 each un robson the skin 1 (one) time each day. Use as instructed [id number] Functional Status Date Assessment Result Facility 11-15-2022 Functional Status N/A [facility] 02-06-2022 Functional Status N/A [facility] Clinical Notes 01-19-2022 to 11-15-2022 Note [...] include: ?8 oz (237 mL) of milk, pywmecv-tombmrssszmv-yjvss milk, and calcium-fortifiedfruit juice. Calcium-fortified means that [...] ?Spinach (cooked), rhubarb, beets, sweet potatoes, and Ethiopian chard. ?Peanuts. ?Potato chips, mauritian fries, and baked potatoes with skin on. ?Nuts and nut products. ?Chocolate. If you regularly take a diuretic medicine, make sure to eat at least 1 or 2 servings of fruits or vegetables that are high in potassium each day. These include: ?Avocado. ?Banana. ?[place], prune, carrot, or tomato juice. ?Baked potato. [...] magnesium, fish oil, or vitamin B6. Take rvro-dsy-ojetvur and prescription medicines only as told by [...] Casseroles. Pizza. Lasagna. Frozen meals. Potato chips. Greek fries. The items listed above may not [...] provider. Document Revised: 03/06/2022 Document Reviewed: 03/06/2022 [employer] Patient Education 2022 [employer]. Follow Up Care 02/06/2022 11:44:09 With:GAVIOTA VEGA PA-C, URL Address: [facility] [place] [address] When: Unknown [facility] 08-24-2022 Note CONSULTATION CONSULTATION DATE: 08/24/2022 [...] We maintain her on pain medication with Eagan 5/325 t.i.d., diclofenac 75 mg b.i.d. Her [...] her at this point. A refill for Eagan 5/325 t.i.d. and diclofenac 75 mg b.i.d. will be sent to the pharmacy. Vitamin compliance and nutrition were discussed and enforced. I did highly encourage her to use exercise bands to increase the strength in her lower extremities. We will see her in three months' time, unless otherwise indicated, and patient agrees. [facility] 05-11-2022 Note CONSULTATION CONSULTATION DATE: 05/11/2022 This [...] 150. Medications include Lyrica 300 mg b.i.d., Eagan 5/325 t.i.d., diclofenac 75 mg b.i.d. and [...] her medications today. We will maintain Lyrica, Eagan and diclofenac at the set dose and frequency. We will follow-up in the clinic in three months' time. The patient is in agreement to this. Vitamin importance and nutrition were discussed. [facility] 04-20-2022 Note CONSULTATION CONSULTATION DATE: 04/20/2022 HISTORY [...] medications include Tylenol, Lyrica 300 mg b.i.d., Eagan 5/325 t.i.d., amitriptyline, diclofenac and duloxetine. Patient's [...] be followed up in the clinic. [facility] 03-08-2022 Evaluation note Encounter Date Diagnosis Assessment [...] lisinopril I will continue that. Feb, Kimani doty w cr kid I-IV (ICD-10 - I12.9) [...] to the DANIEL. Thrombocytopenia is unclear etiology. [facility] Other 08-15-2022 Evaluation note* Encounter Date Diagnosis [...] I will continue that. Feb, Kimani hy soren w cr kid I-IV (ICD-10 - I12.9) [...] follow with Dr. Souza and Dr. Vargas. [facility] Other 08-01-2022 Hospital Discharge instructions Patient Education [...] fried and sweet foods. General instructions Take pjpl-waa-fbklels and prescription medicines only as told by [...] 04/21/2010 Document Revised: 10/16/2019 Document Reviewed: 07/11/2018 [employer] Patient Education 2020 [employer]. Follow Up Care 01/05/2022 12:02:03 With:REGLA PHIPPS, Julia Joya, URL Address: [facility] [address] [place] [address]- [phone] When:Within 6 Month(s) Comments:w/ repeat CT A/P [facility] 07-14-2022 NoteCONSULTATION PROCEDURE DATE: 01/19/2022 PRE AND [...] pattern and the patient tolerated it well. [facility] Signed and Approved by: GIL VALENZUELA . 01/27/2022 14:15:00[facility]07-14-2022 NoteCONSULTATION CONSULTATION DATE: 01/19/2022 This is [...] today. Medications include Lyrica 300 mg b.i.d., Eagan 5/325 t.i.d., diclofenac 75 mg b.i.d. and [...] in three months' time unless otherwise indicated. [facility] Signed and Approved by: GIL VALENZUELA . 01/27/2022 14:15:00[facility] + Plan note Future Appointments Appointment Date:08/14/2022 09:15:00 AM Scheduled Provider:Julia VARGAS MD Location:[facility] Appointment Type:URO Office Visit [facility] evaluation + Plan note Future Appointments Appointment Date:04/22/2024 10:00:00 AM Scheduled Provider:GAVIOTA VEGA PA-C Location:[facility] Appointment Type:URO Office Visit [facility] evaluation note* Diagnosis Type 2 diabetes mellitus with unspecified complications (CMS/[facility]) Edema, unspecified Edema [facility] Diagnosis Vaginal yeast infection- Primary Candidiasis of vulva and vagina documented in this encounter [facility] - Reported* Type Description Date [...] Surgical History LAPAROSCOPIC CHOLECYSTECTOMY Hospitalization History sepsis 2011 Hospitalization History SEE ABOVE [facility] Other Hospital course Narrative No data available for this section [facility] progress note No data available for this section [facility] reason for referral (narrative) , Referral to Dr. 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 Summary Purpose Family History No Family History Records FoundNo Family History Records FoundNo Family History Records FoundNo Family History Records FoundNo Family History Records Found Additional Source Comments INFORMATION SOURCE (unrecogn ized section and content) DATE CREATED AUTHOR 10/30/2019 [facility] DATE CREATED AUTHOR AUTHOR'S ORGANIZ ATION 09/15/2020 [facility] DATE CREATED AUTHOR AUTHOR'S ORGANIZ ATION 11/16/2022 [facility] DATE CREATED AUTHOR AUTHOR'S ORGANIZ ATION 12/19/2022 [facility] DATE CREATED AUTHOR AUTHOR'S ORGANIZ ATION 07/11/2023 [facility] EPIC Care Team (unrecognized sect ion and content) Territory Sales Executive Relationship Specialty Start Date End Date Ty Amin MD PCP - General Family Medicine 01/05/23 Territory Sales Executive Relationship Specialty Start Date End Date Ty Amin MD PCP - General Family Medicine 01/05/23 REASON FOR VISIT (unrecogniz ed section and content) Reason Comments Med Refill FOR RECORDS PERTAINING TO PATIENTS WHO ARE [...] BE BASED ON THE PRIMARY CLINICAL RECORDS. [employer] provides no warranty or guarantee of the accuracy or completeness of information in this document.
[2023-08-31 19:18] LABS: Alanine Aminotransferase 16 U/L (14-59); Albumin Globulin Ratio 0.7; Albumin Level 2.6 g/dL (3.4-5.0); Alkaline Phosphatase 69 U/L (46-116); Anion Gap 8.9; Aspartate Amino Transferase 17 U/L (15-37); BUN Creatinine Ratio 18.7; Bilirubin Total 0.6 mg/dL (0.2-1.0); Calcium 8.2 mg/dL (8.5-10.1); Carbon Dioxide 28.9 mmol/L (21.0-32.0); Chloride 97 mmol/L (98-107); Estimated GFR (African America >60 (>=60); Estimated GFR (Non-African Ame >60 (>=60); Globulin 3.9 g/dL; Glucose 271 mg/dL (74-106); Potassium 3.8 mmol/L (3.5-5.1); Sodium 131 mmol/L (136-145); Total Protein 6.5 g/dL (6.4-8.2)
--- NOTE | 2023-08-31 19:20 | PC.NURSE ---
PT'S O2 INCREASED TO 6L FOR A PULSE OX OF 88% ON 4L, DR HERNANDEZ
[2023-08-31 19:25] LABS: Troponin I High Sensitivity 15.5 pg/mL (4.0-51.3)
[2023-08-31 19:28] LABS: Lactate/Lactic Acid 2.2 mmol/L (0.4-2.0)
[2023-08-31] MEDS: IPRATROPIUM/ALBUTEROL SULFATE 3 ML AMPUL.NEB IH ×2 (19:29→21:43)
[2023-08-31] MEDS: VANCOMYCIN HCL 1,000 MG in 0.9 % SODIUM CHLORIDE 250 ML 250 MG IV (19:38)
[2023-08-31] MEDS: METHYLPREDNISOLONE SOD SUCC PF 125 MG/2 ML VIAL IVP (19:38)
[2023-08-31] MEDS: PIPERACILLIN SODIUM/TAZOBACTAM 3.375 GM in 0.9 % SODIUM CHLORIDE 50 ML IV (19:38)
[2023-08-31] MEDS: KETOROLAC TROMETHAMINE 30 MG/ML VIAL IVP (20:22)
[2023-08-31 20:43] LABS: PCO2 VBG 38.4 mmHg (40.0-52.0)
--- OUTSIDE RECORDS SUMMARY | 2023-08-31 20:47 | XMS_ITS | CCD ---
Author Name Unknown Address [address] [place] [address] Organization [facility] Care Team Providers Care Theology Professor Name Role Phone James Desouza Primary Care Provider JAMES DESOUZA Primary Care Unavailable MARY TAVERAS Admitting Unavailable SHENDGEANISHAHAL Attending Unavailable AICHHOLZ, MCKAYLA Primary Care Unavailable AICHHOLZ, MCKAYLA Referring Unavailable AICHJODIE, MCKAYLA J Primary Care Physician Tico, Stephanie Unavailable GAVIOTA VEGA Attending Unavailable GAVIOTA VEGA Attending Unavailable MANNIE, MCKAYLA Krystal Referring Unavailable Julia VARGAS Attending Unavailable OLE RAMIREZ Attending Unavailable OLE RAMIREZ Consulting Unavailable AICHHOLZ, MULTIMEDIA AUTHOR MCKAYLA Primary Care Unavailable OLE RAMIREZ Admitting Unavailable ANTONY SHRESTHA Consulting Unavailable ALONDRA ., UMBERTO Admitting Unavailable ALONDRA ., UMBERTO Attending Unavailable AICHHOLZ, MULTIMEDIA AUTHOR MCKAYLA Primary Care Unavailable DR CICI CHING Consulting Unavailable MARYANNE POWER Consulting Unavailable GLENN KERR Consulting Unavailable YOMAIRA KERR Consulting Unavailable HATTIE GOFF Consulting Unavailable ALONDRA ., UMBERTO Consulting Unavailable TICO, STEPHANIE Attending Unavailable TICO, STEPHANIE Consulting Unavailable AICHHOLZ, MULTIMEDIA AUTHOR MCKAYLA Primary Care Unavailable TICO, STEPHANIE Admitting Unavailable DR JULIA ACOSTA Admitting Unavailable AICHHOLZ, MULTIMEDIA AUTHOR MCKAYLA Primary Care Unavailable REGLA Loera, DR DUMONT Attending Unavailable REGLA Loera, DR DUMONT Consulting Unavailable COLLIN HUERTAS Consulting Unavailable CECILIA KAUFMAN Admitting Unavailable CECILIA KAUFMAN Attending Unavailable AICHHOLZ, MULTIMEDIA AUTHOR MCKAYLA Primary Care Unavailable RAFAEL GONGORA Attending Unavailable RAFAEL GONGORA Admitting Unavailable AICHHOLZ, MULTIMEDIA AUTHOR MCKAYLA Primary Care Unavailable AICHHOLZ, MULTIMEDIA AUTHOR MCKAYLA Admitting Unavailable AICHHOLZ, MULTIMEDIA AUTHOR MCKAYLA Primary Care Unavailable AICHHOLZ, MULTIMEDIA AUTHOR MCKAYLA Attending Unavailable AICHHOLZ, MULTIMEDIA AUTHOR MCKAYLA Consulting Unavailable LAKSHMIPATHY ., NARENDRANATH Attending Anette vailable LAKSHMIPATHY ., NARENDRANATH Consulting Anette vailable LAKSHMIPATHY ., NARENDRANATH Admitting Anette vailable AICHHOLZ, MULTIMEDIA AUTHOR MCKAYLA Primary Care Unavailable VALENZUELA ., GIL Consulting Unavailable MORTENSEN ., DR CHAPARRO Aguillon Attending Unavailable MORTENSEN ., DR CHAPARRO Aguillon Admitting Unavailable AICHHOLZ, MULTIMEDIA AUTHOR MCKAYLA Primary Care Unavailable VALENZUELA ., GIL Consulting Unavailable MORTENSEN ., DR CHAPARRO Aguillon Admitting Unavailable AICHHOLZ, MULTIMEDIA AUTHOR MCKAYLA Primary Care Unavailable MORTENSEN ., DR CHAPARRO Aguillon Attending Unavailable HALKER ., SUBHASH Consulting Unavailable LAKSHMIPATHY ., NARENDRANATH Admitting Anette vailable LAKSHMIPATHY ., NARENDRANATH Attending Anette vailable AICHHOLZ, MULTIMEDIA AUTHOR MCKAYLA Primary Care Unavailable MORTENSEN ., DR CHAPARRO Aguillon Attending Unavailable MORTENSEN ., DR CHAPARRO Aguillon Admitting Unavailable VALENZUELA ., GIL Consulting Unavailable AICHOLZ, MULTIMEDIA AUTHOR MCKAYLA Primary Care Unavailable VALENZUELA ., GIL Consulting Unavailable MORTENSEN ., DR CHAPARRO Aguillon Attending Unavailable MORTENSEN ., DR CHAPARRO Aguillon Admitting Unavailable AICHHOLZ, MULTIMEDIA AUTHOR MCKAYLA Primary Care Unavailable HATTIE BRODERICK Attending Unavailable HATTIE BRODERICK Admitting Unavailable AICHHOLZ, MULTIMEDIA AUTHOR MCKAYLA Primary Care Unavailable AICHHOLZ, MULTIMEDIA AUTHOR MCKAYLA Admitting Unavailable AICHHOLZ, MULTIMEDIA AUTHOR MCKAYLA Consulting Unavailable AICHHOLZ, MULTIMEDIA AUTHOR MCKAYLA Primary Care Unavailable AICHHOLZ, MULTIMEDIA AUTHOR MCKAYLA Attending Unavailable AICHHOLZ, MULTIMEDIA AUTHOR MCKAYLA Primary Care Unavailable MISC, DR LESLIE Admitting Unavailable MISC, DR LESLIE Attending Unavailable MISC, DOCTOR Consulting Unavailable DIAB ., MARIANO Admitting Unavailable DIAB ., MARIANO Attending Unavailable DIAB ., MARIANO Consulting Unavailable AICHHOLZ, MULTIMEDIA AUTHOR MCKAYLA Primary Care Unavailable RICCO PICKARD Consulting Unavailable AICHHOLZ, MULTIMEDIA AUTHOR MCKAYLA Admitting Unavailable AICHHOLZ, MULTIMEDIA AUTHOR MCKAYLA Primary Care Unavailable AICHHOLZ, MULTIMEDIA AUTHOR MCKAYLA Attending Unavailable AICHHOLZ, MULTIMEDIA AUTHOR MCKAYLA Consulting Unavailable MAGDIEL, DR PATRICIA Joya Consulting Unavailable CECILIA KAUFMAN Attending Unavailable CECILIA KAUFMAN Admitting Unavailable MAGDIEL, DR PATRICIA Joya Consulting Unavailable AICHHOLZ, MULTIMEDIA AUTHOR MCKAYLA Primary Care Unavailable CECILIA KAUFMAN Consulting Unavailable FESTUS ., DR CHAPARRO Aguillon Attending Unavailable FESTUS ., DR CHAPARRO Aguillon Consulting Unavailable FESTUS ., DR CHAPARRO Aguillon Admitting Unavailable AICHHOLZ, MULTIMEDIA AUTHOR MCKAYLA Primary Care Unavailable HATTIE BRODERICK Attending Unavailable HATTIE BRODERICK Consulting Unavailable HATTIE BRODERICK Admitting Unavailable AICHHOLZ, MULTIMEDIA AUTHOR MCKAYLA Primary Care Unavailable HATTIE BAUTISTA Unavailable AICHHOLZ, MULTIMEDIA AUTHOR MCKAYLA Admitting Unavailable AICHHOLZ, MULTIMEDIA AUTHOR MCKAYLA Attending Unavailable AICHHOLZ, MULTIMEDIA AUTHOR MCKAYLA Consulting Unavailable AICHHOLZ, MULTIMEDIA AUTHOR MCKAYLA Primary Care Unavailable AICHHOLZ, MCKAYLA Attending Unavailable Ty Amin MD Primary Care Provider Allergies Allergy Classification Reported Allergen(s) Allergy Type Date of Onset Reaction(s) Facility (1 source) No Known Medication Allergies; 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: [No Known Medication Allergies] Propensity to adverse reactions (disorder) [facility] Rep[facility] Medications Current Medications Medication Drug Class(es) Dates Sig (Normalized) Sig (Original) acetaminophen 325 mg / HYDROcodone bitartrate 5 mg oral tablet (6 sources) Opioid Agonist Start: 02-06-2022 acetaminophen-hydr ocodone 325 mg-5 mg oral tablet Refill(s) 0 Start Date: 02/06/22 Status: Ordered HYDROcodone-acet aminophen ([place]ott) 5-325 MG tablet 1 tablet 3 (three) times a day as needed for severe pain. 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 Unclassified (1 source) HALFWAY INJECT NONINSULN ANTIDIAB; 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: [HALFWAY INJECT NONINSULN ANTIDIAB] Onset: 12-05-2022 Unclassified (3 [...] 12-06-2022 BASO # 0.0 103/ul Normal 0.0-0.1 [facility] Comment on above: Performed By: #### C BC #### [facility] [address] [place] [address] Dr. Ashlie Hills Basophils/100 WBC (Bld) 0.1 % Critically low 0.2-2.0 [facility] Comment on above: Performed By: #### C BC #### [facility] [address] [place] [address] Dr. Ashlie Hills EO # 0.0 103/ul Normal 0.0-0.7 [facility] Comment on above: Performed By: #### C BC #### [facility] [address] [place] [address] Dr. Ashlie Hills Eosinophils/100 WBC (Bld) 0.0 % Critically low 0.9-7.0 [facility] Comment on above: Performed By: #### C BC #### [facility] [address] [place] [address] Dr. Ashlie Hills Erythrocyte distribution width (RBC) [Ratio] 14.9 % Normal 11.0-15.0 [facility] Comment on above: Performed By: #### C BC #### [facility] [address] [place] [address] Dr. Ashlie Hills Hematocrit (Bld) [Volume fraction] 46.2 % Normal 36.0-48.0 [facility] Comment on above: Performed By: #### C BC #### [facility] [address] [place] [address] Dr. Ashlie Hills Hemoglobin (Bld) [Mass/Vol] 14.7 g/dL Normal 12.0-16.0 [facility] Comment on above: Performed By: #### C BC #### [facility] [address] [place] [address] Dr. Ashlie Hills IG # 0.06 10e3/ul Critically high 0.00-0.03 [facility] Comment on above: Performed By: #### C BC #### [facility] [address] [address] [address] Ashlie Hills IG % 0.4 % Normal 0.0-0.5 [facility] Comment on above: Performed By: #### C BC #### [facility] [address] [place] [address] Dr. Ashlie Hills LYMPH # 1.3 103/ul Normal 1.2-3.8 [facility] Comment on above: Performed By: #### C BC #### [facility] [address] [place] [address] Dr. Ashlie Hills Lymphocytes/100 WBC (Bld) 9.4 % Critically low 20.5-60.0 [facility] Comment on above: Performed By: #### C BC #### [facility] [address] [place] [address] Dr. Ashlie Hills MANUAL DIFF REQ NO Normal [facility] Comment on above: Performed By: #### C BC #### [facility] [address] [place] [address] Dr. Ashlie Hills MCH (RBC) [Entitic mass] 28.4 pg Normal 26.7-34.0 [facility] Comment on above: Performed By: #### C BC #### [facility] [address] [place] [address] Dr. Ashlie Hills MCHC (RBC) [Mass/Vol] 31.8 g/dL Normal 29.9-35.2 [facility] Comment on above: Performed By: #### C BC #### [facility] [address] [place] [address] Dr. Ashlie Hills MCV (RBC) [Entitic vol] 89.4 fL Normal 81.0-99.0 [facility] Comment on above: Performed By: #### C BC #### [facility] [address] [place] [address] Dr. Ashlie Hills MONO # 0.5 103/ul Normal 0.3-0.8 [facility] Comment on above: Performed By: #### C BC #### [facility] [address] [place] [address] Dr. Ashlie Hills Monocytes/100 WBC (Bld) 3.4 % Normal 1.7-12.0 [facility] Comment on above: Performed By: #### C BC #### [facility] [address] [place] [address] Dr. Ashlie Hills NEUT # 11.8 103/ul Critically high 1.4-6.5 [facility] Comment on above: Performed By: #### C BC #### [facility] [address] [place] [address] Dr. Ashlie Hills Neutrophils/100 WBC (Bld) 86.7 % Critically high 43.0-75.0 [facility] Comment on above: Performed By: #### C BC #### [facility] [address] [place] [address] Dr. Ashlie Hills Platelet mean volume (Bld) [Entitic vol] 12.6 fL Normal 9.5-13.5 [facility] Comment on above: Performed By: #### C BC #### [facility] [address] [place] [address] Dr. Ashlie Hills PLT 133 103/ul Critically low 150-450 [facility] Comment on above: Performed By: #### C BC #### [facility] [address] [place] [address] Dr. Ashlie Hills RBC 5.17 106/ul Normal 4.20-5.40 [facility] Comment on above: Performed By: #### C BC #### [facility] [address] [place] [address] Dr. Ashlie Hills WBC 13.6 103/ul Critically high 4.0-11.0 [facility] Comment on above: Performed By: #### C BC #### [facility] [address] [place] [address] Dr. Ashlie Hills MAGNESIUMon 12-06-2022 Magnesium [Mass/Vol] 2.2 mg/dL Normal 1.8-2.4 [facility] Comment on above: Performed By: #### I NFLUAB #### [facility] [address] [place] [address] Dr. Ashlie Hills POINT OF CARE GLUCOSEon 11-08 Glucose [Mass/Vol] 340 mg/dL Critically high -106 [facility] Comment on above: Performed By: #### P OCGLUC #### [facility] [address] [place] [address] Dr. Ashlie Hills Glucose [Mass/Vol] 276 mg/dL Critically high [facility]106 [facility] Comment on above: Performed By: #### C BC #### [facility] [address] [place] [address] Dr. Ashlie Hills Glucose [Mass/Vol] 333 mg/dL Critically high [facility]106 [facility] Comment on above: Performed By: #### C BC #### [facility] [address] [place] [address] Dr. Ashlie Hills PROF CHEM 8 (BAS METB)on Anion gap [Moles/Vol] 10.9 mmol/L Normal [facility] Comment on above: Performed By: #### I NFLUAB #### [facility] [address] [place] [address] Dr. Ashlie Hills Calcium [Mass/Vol] 9.3 mg/dL Normal 8.5-10.[address] [facility] Comment on above: Performed By: #### I NFLUAB #### [facility] [address] [place] [address] Dr. Ashlie Hills Chloride [Moles/Vol] 103 mmol/L Normal 98-107 [facility] Comment on above: Performed By: #### I NFLUAB #### [facility] [address] [place] [address] Dr. Ashlie Hills CO2 [Moles/Vol] 31.2 mmol/L Normal 21.0-32.0 [facility] Comment on above: Performed By: #### I NFLUAB #### [facility] [address] [place] [address] Dr. Ashlie Hills Creatinine [Mass/Vol] 0.96 mg/dL Normal 0.55-1.02 [facility] Comment on above: Performed By: #### I NFLUAB #### [facility] [address] [address] [address] Ashlie Hills EGFR-AF MONEGASQUE >60 Normal >=60 [facility] Comment on above: Performed By: #### I NFLUAB #### [facility] [address] [place] [address] Dr. Ashlie Hills EGFR-NON AF MONEGASQUE >60 Normal >=60 [facility] Comment on above: Performed By: #### I NFLUAB #### [facility] [address] [place] [address] Dr. Ashlie Hills Glucose [Mass/Vol] 288 mg/dL Critically high 74-106 [facility] Comment on above: Performed By: #### I NFLUAB #### [facility] [address] [place] [address] Dr. Ashlie Hills Potassium [Moles/Vol] 5.1 mmol/L Normal 3.5-5.1 [facility] Comment on above: Performed By: #### I NFLUAB #### [facility] [address] [place] [address] Dr. Ashlie Hills Sodium [Moles/Vol] 140 mmol/L Normal 136-[address] [facility] Comment on above: Performed By: #### I NFLUAB #### [facility] [address] [place] [address] Dr. Ashlie Hills Urea nitrogen [Mass/Vol] 30.0 mg/dL Critically high 7.0-18.0 [facility] Comment on above: Performed By: #### I NFLUAB #### [facility] [address] [place] [address] Dr. Ashlie Hills Urea nitrogen/Creatinine [Mass ratio] 31.2 mg/mg Normal [facility] Comment on above: Performed By: #### I NFLUAB #### [facility] [address] [place] [address] Dr. Ashlie Hills CBC AUTO DIFFon 12-05-2022 BASO # 0.0 103/ul Normal 0.0-0.1 [facility] Comment on above: Performed By: #### C BC #### [facility] [address] [place] [address] Dr. sAhlie Hills Basophils/100 WBC (Bld) 0.4 % Normal 0.2-2.0 [facility] Comment on above: Performed By: #### C BC #### [facility] [address] [place] [address] Dr. Ashlie Hills EO # 0.0 103/ul Normal 0.0-0.7 [facility] Comment on above: Performed By: #### C BC #### [facility] [address] [place] [address] Dr. Ashlie Hills Eosinophils/100 WBC (Bld) 0.0 % Critically low 0.9-7.0 [facility] Comment on above: Performed By: #### C BC #### [facility] [address] [place] [address] Dr. Ashlie Hills Erythrocyte distribution width (RBC) [Ratio] 14.8 % Normal 11.0-15.0 [facility] Comment on above: Performed By: #### C BC #### [facility] [address] [place] [address] Dr. Ashlie Hills Hematocrit (Bld) [Volume fraction] 49.9 % Critically high 36.0-48.0 [facility] Comment on above: Performed By: #### C BC #### [facility] [address] [place] [address] Dr. Ashlie Hills Hemoglobin (Bld) [Mass/Vol] 15.7 g/dL Normal 12.0-16.0 [facility] Comment on above: Performed By: #### C BC #### [facility] [address] [place] [address] Dr. Ashlie Hills IG # 0.04 10e3/ul Critically high 0.00-0.03 [facility] Comment on above: Performed By: #### C BC #### [facility] [address] [place] [address] Dr. Ashlie Hills IG % 0.5 % Normal 0.0-0.5 [facility] Comment on above: Performed By: #### C BC #### [facility] [address] [address] [address] Ashlie Hills LYMPH # 1.1 103/ul Critically low 1.2-3.8 [facility] Comment on above: Performed By: #### C BC #### [facility] [address] [place] [address] Dr. Ashlie Hills Lymphocytes/100 WBC (Bld) 12.7 % Critically low 20.5-60.0 [facility] Comment on above: Performed By: #### C BC #### [facility] [address] [place] [address] Dr. Ashlie Hills MANUAL DIFF REQ NO Normal [facility] Comment on above: Performed By: #### C BC #### [facility] [address] [place] [address] Dr. Ashlie Hills MCH (RBC) [Entitic mass] 28.1 pg Normal 26.7-34.0 [facility] Comment on above: Performed By: #### C BC #### [facility] [address] [place] [address] Dr. Ashlie Hills MCHC (RBC) [Mass/Vol] 31.5 g/dL Normal 29.9-35.2 [facility] Comment on above: Performed By: #### C BC #### [facility] [address] [place] [address] Dr. Ashlie Hills MCV (RBC) [Entitic vol] 89.3 fL Normal 81.0-99.0 [facility] Comment on above: Performed By: #### C BC #### [facility] [address] [place] [address] Dr. Ashlie Hills MONO # 0.1 103/ul Critically low 0.3-0.8 [facility] Comment on above: Performed By: #### C BC #### [facility] [address] [place] [address] Dr. Ashlie Hills Monocytes/100 WBC (Bld) 1.3 % Critically low 1.7-12.0 [facility] Comment on above: Performed By: #### C BC #### [facility] [address] [place] [address] Dr. Ashlie Hills NEUT # 7.2 103/ul Critically high 1.4-6.5 [facility] Comment on above: Performed By: #### C BC #### [facility] [address] [place] [address] Dr. Ashlie Hills Neutrophils/100 WBC (Bld) 85.1 % Critically high 43.0-75.0 [facility] Comment on above: Performed By: #### C BC #### [facility] [address] [place] [address] Dr. Ashlie Hills Platelet mean volume (Bld) [Entitic vol] 12.2 fL Normal 9.5-13.5 [facility] Comment on above: Performed By: #### C BC #### [facility] [address] [place] [address] Dr. Ashlie Hills PLT 116 103/ul Critically low 150-450 [facility] Comment on above: Performed By: #### C BC #### [facility] [address] [place] [address] Dr. Ashlie Hills RBC 5.59 106/ul Critically high 4.20-5.40 [facility] Comment on above: Performed By: #### C BC #### [facility] [address] [place] [address] Dr. Ashlie Hills WBC 8.5 103/ul Normal 4.0-11.0 [facility] Comment on above: Performed By: #### C BC #### [facility] [address] [place] [address] Dr. Ashlie Hills CTA CHEST WO W [...] by: HATTIE GOFF Date: 2022-12-05 01:52 Normal [facility] MAGNESIUMon 12-05-2022 Magnesium [Mass/Vol] 2.1 mg/dL Normal 1.8-2.4 [facility] Comment on above: Performed By: #### P OCGLUC #### [facility] [address] [address] [address] Ashlie Hills POINT OF CARE GLUCOSEon 11-08 Glucose [Mass/Vol] 293 mg/dL Critically high 74-106 [facility] Comment on above: Performed By: #### P OCGLUC #### [facility] [address] [address] [address] Ashlie Hills Glucose [Mass/Vol] 269 mg/dL Critically high 74-106 [facility] Comment on above: Performed By: #### P OCGLUC #### [facility] [address] [place] [address] Dr. Ashlie Hills Glucose [Mass/Vol] 223 mg/dL Critically high 74-106 [facility] Comment on above: Performed By: #### C VDAGS #### [facility] [address] [address] [address] Ashlie Hills PROF CHEM 8 (BAS METB)on Anion gap [Moles/Vol] 11.6 mmol/L Normal [facility] Comment on above: Performed By: #### P OCGLUC #### [facility] [address] [place] [address] Dr. Ashlie Hills Calcium [Mass/Vol] 9.2 mg/dL Normal 8.5-10.[address] [facility] Comment on above: Performed By: #### P OCGLUC #### [facility] [address] [place] [address] Dr. Ashlie Hills Chloride [Moles/Vol] 102 mmol/L Normal 98-107 [facility] Comment on above: Performed By: #### P OCGLUC #### [facility] [address] [place] [address] Dr. Ashlie Hills CO2 [Moles/Vol] 28.7 mmol/L Normal 21.0-32.0 [facility] Comment on above: Performed By: #### P OCGLUC #### [facility] [address] [place] [address] Dr. Ashlie Hills Creatinine [Mass/Vol] 1.04 mg/dL Critically high 0.55-1.02 [facility] Comment on above: Performed By: #### P OCGLUC #### [facility] [address] [place] [address] Dr. Ashlie Hills EGFR-AF MONEGASQUE >60 Normal >=60 [facility] Comment on above: Performed By: #### P OCGLUC #### [facility] [address] [place] [address] Dr. Ashlie Hills EGFR-NON AF MONEGASQUE 56 mL/min/1.73m2 Critically low >=60 [facility] Comment on above: Performed By: #### P OCGLUC #### [facility] [address] [address] [address] Ashlie Hills Glucose [Mass/Vol] 231 mg/dL Critically high 74-106 [facility] Comment on above: Performed By: #### P OCGLUC #### [facility] [address] [address] [address] Ashlie Hills Potassium [Moles/Vol] 4.3 mmol/L Normal 3.5-5.1 [facility] Comment on above: Performed By: #### P OCGLUC #### [facility] [address] [address] [address] Ashlie Hills Sodium [Moles/Vol] 138 mmol/L Normal 136-[address] [facility] Comment on above: Performed By: #### P OCGLUC #### [facility] [address] [address] [address] Ashlie Hills Urea nitrogen [Mass/Vol] 17.0 mg/dL Normal 7.0-18.0 [facility] Comment on above: Performed By: #### P OCGLUC #### [facility] [address] [place] [address] Dr. Ashlie Hills Urea nitrogen/Creatinine [Mass ratio] 16.3 mg/mg Normal [facility] Comment on above: Performed By: #### P OCGLUC #### [facility] [address] [address] [address] Ashlie Hills RESPIRATORY PANEL PLUSon Adenovirus Not detected Normal NOT DETECTED [facility] Comment on above: Performed By: #### C VDAGS #### [facility] [address] [place] [address] Dr. Ashlie Hills B. Parapertusis Not detected Normal NOT DETECTED [facility] Comment on above: Performed By: #### C VDAGS #### [facility] [address] [place] [address] Dr. Ashlie Hills B. Pertussis Not detected Normal NOT DETECTED [facility] Comment on above: Performed By: #### C VDAGS #### [facility] [address] [address] [address] Ashlie Hills Chlamydia Pneumoniae Not detected Normal NOT DETECTED [facility] Comment on above: Performed By: #### C VDAGS #### [facility] [address] [place] [address] Dr. Ashlie Hills Coronavirus 229E Not detected Normal NOT DETECTED [facility] Comment on above: Performed By: #### C VDAGS #### [facility] [address] [place] [address] Dr. Ashlie Hills Coronavirus HKU1 Not detected Normal NOT DETECTED [facility] Comment on above: Performed By: #### C VDAGS #### [facility] [address] [place] [address] Dr. Ashlie Hills Coronavirus NL63 Not detected Normal NOT DETECTED [facility] Comment on above: Performed By: #### C VDAGS #### [facility] [address] [place] [address] Dr. Ashlie Hills Coronavirus OC43 Not detected Normal NOT DETECTED [facility] Comment on above: Performed By: #### C VDAGS #### [facility] [address] [place] [address] Dr. Ashlie Hills Influenza A H1 Not detected Normal NOT DETECTED [facility] Comment on above: Performed By: #### C VDAGS #### [facility] [address] [place] [address] Dr. Ashlie Hills Influenza A H1 2009 Not detected Normal NOT DETECTED [facility] Comment on above: Performed By: #### C VDAGS #### [facility] [address] [place] [address] Dr. Ashlie Hills Influenza A H3 Not detected Normal NOT DETECTED [facility] Comment on above: Performed By: #### C VDAGS #### [facility] [address] [place] [address] Dr. Ashlie Hills Influenza B Not detected Normal NOT DETECTED [facility] Comment on above: Performed By: #### C VDAGS #### [facility] [address] [address] [address] Ashlie Hills Metapneumovirus Not detected Normal NOT DETECTED [facility] Comment on above: Performed By: #### C VDAGS #### [facility] [address] [address] [address] Ashlie Hills Mycoplas. Pneumoniae Not detected Normal NOT DETECTED [facility] Comment on above: Performed By: #### C VDAGS #### [facility] [address] [place] [address] Dr. Ashlie Hills Parainfluenza 1 Not detected Normal NOT DETECTED [facility] Comment on above: Performed By: #### C VDAGS #### [facility] [address] [place] [address] Dr. Ashlie Hills Parainfluenza 2 Not detected Normal NOT DETECTED [facility] Comment on above: Performed By: #### C VDAGS #### [facility] [address] [place] [address] Dr. Ashlie Hills Parainfluenza 3 Detected Abnormal NOT DETECTED [facility] Comment on above: Performed By: #### C VDAGS #### [facility] [address] [place] [address] Dr. Ashlie Hills Parainfluenza 4 Not detected Normal NOT DETECTED [facility] Comment on above: Performed By: #### C VDAGS #### [facility] [address] [place] [address] Dr. Ashlie Hills Rhino/Enterovirus Not detected Normal NOT DETECTED [facility] Comment on above: Performed By: #### C VDAGS #### [facility] [address] [place] [address] Dr. Ashlie DE PAZ Header 1 RESPIRATORY PANEL: VIRUSES Normal [facility] Comment on above: Performed By: #### C VDAGS #### [facility] [address] [place] [address] Dr. Ashlie DE PAZ Header 2 RESPIRATORY PANEL: BACTERIA Normal [facility] Comment on above: Performed By: #### C VDAGS #### [facility] [address] [place] [address] Dr. Ashlie Hills RSV Not detected Normal NOT DETECTED [facility] Comment on above: Performed By: #### C VDAGS #### [facility] [address] [place] [address] Dr. Ashlie Hills SARS-CoV-2 (COVID-19) RNA MADDY+probe Ql (Unsp spec) Not detected Normal NOT DETECTED [facility] Comment on above: Performed By: #### C VDAGS #### [facility] [address] [place] [address] Dr. Ashlie Hills XR CHEST 1 Von [...] MARYANNE POWER Date: 2022-12-04 22:23 Normal [facility] BLOOD GASES BTYon 12-04-2022 02 MODE ROOM AIR Normal [facility] Comment on above: Performed By: #### C BC #### [facility] [address] [place] [address] Dr. Ashlie Hills ALLENS TEST Positive Normal [facility] Comment on above: Performed By: #### C BC #### [facility] [address] [place] [address] Dr. Ashlie Hills Base excess Calc (Bld) [Moles/Vol] 5.4 mmol/L Critically high -2.0-2.0 [facility] Comment on above: Performed By: #### C BC #### [facility] [address] [place] [address] Dr. Ashlie Hills BIPAP PRESSURE Normal [facility] Comment on above: Performed By: #### C BC #### [facility] [address] [place] [address] Dr. Ashlie Hills CPAP Normal [facility] Comment on above: Performed By: #### C BC #### [facility] [address] [address] [address] Ashlie Hills FIO2 Normal [facility] Comment on above: Performed By: #### C BC #### [facility] [address] [place] [address] Dr. Ashlie Hills HCO3 (Bld) [Moles/Vol] 30.8 mmol/L Critically high 22.0-26.0 [facility] Comment on above: Performed By: #### C BC #### [facility] [address] [place] [address] Dr. Ashlie Hills LPM Normal [facility] Comment on above: Performed By: #### C BC #### [facility] [address] [place] [address] Dr. Ashlie Hills MINUTE VOLUME Normal [facility] Comment on above: Performed By: #### C BC #### [facility] [address] [place] [address] Dr. Ashlie Hills Oxygen (Bld) [Partial pressure] 46.3 mm[Hg] Critically low 80.0-100.0 [facility] Comment on above: Performed By: #### C BC #### [facility] [address] [place] [address] Dr. Ashlie Hills Oxygen saturation in Blood 83.9 % Critically low 95.0-100.0 [facility] Comment on above: Performed By: #### C BC #### [facility] [address] [place] [address] Dr. Ashlie Hills PCO2 54.2 mmHg Critically high 35.0-45.0 [facility] Comment on above: Performed By: #### C BC #### [facility] [address] [place] [address] Dr. Ashlie Hills PEEP [facility] Comment on above: Performed By: #### C BC #### [facility] [address] [place] [address] Dr. Ashlie Hills pH (Bld) 7.363 [pH] Normal 7.350-7.450 [facility] Comment on above: Performed By: #### C BC #### [facility] [address] [place] [address] Dr. Ashlie Hills [facility] Comment on above: Performed By: #### C BC #### [facility] [address] [place] [address] Dr. Ashlie Hills [facility] Comment on above: Performed By: #### C BC #### [facility] [address] [place] [address] Dr. Ashlie Hills PUNCTURE SITE LR [facility] Comment on above: Performed By: #### C BC #### [facility] [address] [place] [address] Dr. Ashlie Hills [facility] Comment on above: Performed By: #### C BC #### [facility] [address] [place] [address] Dr. Ashlie Hills [facility] Comment on above: Performed By: #### C BC #### [facility] [address] [place] [address] Dr. Ashlie Hills [facility] Comment on above: Performed By: #### C BC #### [facility] [address] [place] [address] Dr. Ashlie Hills BNPon 12-04-2022 Natriuretic peptide B (Bld) [Mass/Vol] 76.0 pg/mL Normal <=900.0 [facility] Comment on above: Performed By: #### P OCGLUC #### [facility] [address] [place] [address] Dr. Ashlie Hills CBC AUTO DIFFon 12-04-2022 BASO # 0.1 103/ul Normal 0.0-0.1 [facility] Comment on above: Performed By: #### C BC #### [facility] [address] [place] [address] Dr. Ashlie Hills Basophils/100 WBC (Bld) 0.6 % Normal 0.2-2.0 [facility] Comment on above: Performed By: #### C BC #### [facility] [address] [place] [address] Dr. Ashlie Hills EO # 0.2 103/ul Normal 0.0-0.7 [facility] Comment on above: Performed By: #### C BC #### [facility] [address] [place] [address] Dr. Ashlie Hills Eosinophils/100 WBC (Bld) 1.9 % Normal 0.9-7.0 [facility] Comment on above: Performed By: #### C BC #### [facility] [address] [place] [address] Dr. Ashlie Hills Erythrocyte distribution width (RBC) [Ratio] 15.0 % Normal 11.0-15.0 [facility] Comment on above: Performed By: #### C BC #### [facility] [address] [place] [address] Dr. Ashlie Hills Hematocrit (Bld) [Volume fraction] 49.1 % Critically high 36.0-48.0 [facility] Comment on above: Performed By: #### C BC #### [facility] [address] [place] [address] Dr. Ashlie Hills Hemoglobin (Bld) [Mass/Vol] 15.6 g/dL Normal 12.0-16.0 [facility] Comment on above: Performed By: #### C BC #### [facility] [address] [place] [address] Dr. Ashlie Hills IG # 0.02 10e3/ul Normal 0.00-0.03 [facility] Comment on above: Performed By: #### C BC #### [facility] [address] [place] [address] Dr. Ashlie Hills IG % 0.2 % Normal 0.0-0.5 [facility] Comment on above: Performed By: #### C BC #### [facility] [address] [place] [address] Dr. Ashlie Hills LYMPH # 2.8 103/ul Normal 1.2-3.8 [facility] Comment on above: Performed By: #### C BC #### [facility] [address] [place] [address] Dr. Ashlie Hills Lymphocytes/100 WBC (Bld) 29.9 % Normal 20.5-60.0 [facility] Comment on above: Performed By: #### C BC #### [facility] [address] [place] [address] Dr. Ashlie Hills MANUAL DIFF REQ NO Normal [facility] Comment on above: Performed By: #### C BC #### [facility] [address] [place] [address] Dr. Ashlie Hills MCH (RBC) [Entitic mass] 28.5 pg Normal 26.7-34.0 [facility] Comment on above: Performed By: #### C BC #### [facility] [address] [place] [address] Dr. Ashlie Hills MCHC (RBC) [Mass/Vol] 31.8 g/dL Normal 29.9-35.2 [facility] Comment on above: Performed By: #### C BC #### [facility] [address] [place] [address] Dr. Ashlie Hills MCV (RBC) [Entitic vol] 89.8 fL Normal 81.0-99.0 [facility] Comment on above: Performed By: #### C BC #### [facility] [address] [place] [address] Dr. Ashlie Hills MONO # 1.0 103/ul Critically high 0.3-0.8 [facility] Comment on above: Performed By: #### C BC #### [facility] [address] [place] [address] Dr. Ashlie Hills Monocytes/100 WBC (Bld) 10.6 % Normal 1.7-12.0 [facility] Comment on above: Performed By: #### C BC #### [facility] [address] [place] [address] Dr. Ashlie Hills NEUT # 5.3 103/ul Normal 1.4-6.5 [facility] Comment on above: Performed By: #### C BC #### [facility] [address] [place] [address] Dr. Ashlie Hills Neutrophils/100 WBC (Bld) 56.8 % Normal 43.0-75.0 [facility] Comment on above: Performed By: #### C BC #### [facility] [address] [place] [address] Dr. Ashlie Hills Platelet mean volume (Bld) [Entitic vol] 12.5 fL Normal 9.5-13.5 [facility] Comment on above: Performed By: #### C BC #### [facility] [address] [place] [address] Dr. Ashlie Hills PLT 109 103/ul Critically low 150-450 [facility] Comment on above: Performed By: #### C BC #### [facility] [address] [place] [address] Dr. Ashlie Hills RBC 5.47 106/ul Critically high 4.20-5.40 [facility] Comment on above: Performed By: #### C BC #### [facility] [address] [place] [address] Dr. Ashlie Hills WBC 9.4 103/ul Normal 4.0-11.0 [facility] Comment on above: Performed By: #### C BC #### [facility] [address] [place] [address] Dr. Ashlie Hills PROF 14(COMP METB)on 023 Albumin [Mass/Vol] 2.9 g/dL Critically low 3.4-5.0 [facility] Comment on above: Performed By: #### C BC #### [facility] [address] [place] [address] Dr. Ashlie Hills Albumin/Globulin [Mass ratio] 0.6 {ratio} Normal [facility] Comment on above: Performed By: #### C BC #### [facility] [address] [place] [address] Dr. Ashlie Hills ALP [Catalytic activity/Vol] 64 U/L Normal 46-116 [facility] Comment on above: Performed By: #### C BC #### [facility] [address] [place] [address] Dr. Ashlie Hills ALT [Catalytic activity/Vol] 16 U/L Normal 14-59 [facility] Comment on above: Performed By: #### C BC #### [facility] [address] [address] [address] Ashlie Hills Anion gap [Moles/Vol] 9.6 mmol/L Normal [facility] Comment on above: Performed By: #### C BC #### [facility] [address] [address] [address] Ashlie Hills AST [Catalytic activity/Vol] 16 U/L Normal 15-37 [facility] Comment on above: Performed By: #### C BC #### [facility] [address] [address] [address] Ashlie Hills Bilirubin [Mass/Vol] 0.5 mg/dL Normal 0.2-1.0 [facility] Comment on above: Performed By: #### C BC #### [facility] [address] [place] [address] Dr. Ashlie Hills Calcium [Mass/Vol] 8.7 mg/dL Normal 8.5-10.[address] [facility] Comment on above: Performed By: #### C BC #### [facility] [address] [place] [address] Dr. Ashlie Hills Chloride [Moles/Vol] 103 mmol/L Normal 98-107 [facility] Comment on above: Performed By: #### C BC #### [facility] [address] [place] [address] Dr. Ashlie Hills CO2 [Moles/Vol] 30.7 mmol/L Normal 21.0-32.0 [facility] Comment on above: Performed By: #### C BC #### [facility] [address] [address] [address] Ashlie Hills Creatinine [Mass/Vol] 0.96 mg/dL Normal 0.55-1.02 [facility] Comment on above: Performed By: #### C BC #### [facility] [address] [address] [address] Ashlie Hills EGFR-AF MONEGASQUE >60 Normal >=60 [facility] Comment on above: Performed By: #### C BC #### [facility] [address] [address] [address] Ashlie Hills EGFR-NON AF MONEGASQUE >60 Normal >=60 [facility] Comment on above: Performed By: #### C BC #### [facility] [address] [address] [address] Ashlie Hills Globulin (S) [Mass/Vol] 4.7 g/dL Normal [facility] Comment on above: Performed By: #### C BC #### [facility] [address] [address] [address] Ashlie Hills Glucose [Mass/Vol] 170 mg/dL Critically high 74-106 [facility] Comment on above: Performed By: #### C BC #### [facility] [address] [address] [address] Ashlie Hills Potassium [Moles/Vol] 4.3 mmol/L Normal 3.5-5.1 [facility] Comment on above: Performed By: #### C BC #### [facility] [address] [address] [address] Ashlie Hills Protein [Mass/Vol] 7.6 g/dL Normal 6.4-8.[address] [facility] Comment on above: Performed By: #### C BC #### [facility] [address] [address] [address] Ashlie Hills Sodium [Moles/Vol] 139 mmol/L Normal 136-145 [facility] Comment on above: Performed By: #### C BC #### [facility] [address] [address] [address] Ashlie Hills Urea nitrogen [Mass/Vol] 16.0 mg/dL Normal 7.0-18.0 [facility] Comment on above: Performed By: #### C BC #### [facility] [address] [address] [address] Ashlie Hills Urea nitrogen/Creatinine [Mass ratio] 16.7 mg/mg Normal [facility] Comment on above: Performed By: #### C BC #### [facility] [address] [address] [address] Ashlie Hills SYMPTOMATIC COVID-19 ANTIGEN on 12-04-2022 EUA Statement SEE BELOW Normal [facility] Comment on above: Result Comment: [...] sooner. Performed By: #### C VDAGS #### [facility] [address] [place] [address] Dr. Ashlie Hills SARS-CoV-2 (COVID-19) RNA MADDY+probe Ql (Unsp spec) Negative Normal NEGATIVE [facility] Comment on above: Performed By: #### C VDAGS #### [facility] [address] [place] [address] Dr. Ashlie Hills TROPONIN, HIGH SENSITIVITYon 12-04-2022 HSTROP 8.9 pg/mL Normal 4.0-51.3 [facility] Comment on above: Result Comment: CUT- OFF POINTS HAVE BEEN ESTABLISHED BASED ON THE FOURTH UNIVERSAL DEFINITIONS OF MYOCARDIAL INFARCTION. THE UPPER REFERENCE LIMIT (URL) OF TROPONIN, DEFINED THE 99TH PERCENTILE OF cTnI DISTRIBUTION IN A REFERENCE POPULATION, HAS BEEN CONFIRMED THE DECISION THRESHOLD FOR UT DIAGNOSIS. Performed By: #### P OCGLUC #### [facility] [address] [place] [address] Dr. Ashlie Hills MICROALBUMIN, RAND URon - mALB 35.8 mg/dL Critically high <=30.0 [facility] Comment on above: Performed By: #### C VDAGS #### [facility] [address] [address] [address] Ashlie Hills UA RANDOM W/MICROSCOPICon BACTERIA NONE SEEN Normal NONE SEEN [facility] Comment on above: Performed By: #### C VDAGS #### [facility] [address] [address] [address] Ashlie Hills Bilirubin Ql (U) Negative Normal NEGATIVE [facility] Comment on above: Performed By: #### C VDAGS #### [facility] [address] [place] [address] Dr. Ashlie Hills CAST SEEN Abnormal NONE SEEN [facility] Comment on above: Performed By: #### C VDAGS #### [facility] [address] [place] [address] Dr. Ashlie Hills Clarity (U) CLEAR Normal CLEAR [facility] Comment on above: Performed By: #### C VDAGS #### [facility] [address] [place] [address] Dr. Ashlie Hills Color (U) YELLOW Normal YELLOW [facility] Comment on above: Performed By: #### C VDAGS #### [facility] [address] [place] [address] Dr. Ashlie Hills Crystals LM Nom (Urine sed) NONE SEEN Normal NONE SEEN [facility] Comment on above: Performed By: #### C VDAGS #### [facility] [address] [place] [address] Dr. Ashlie Hills Epithelial cells LM Ql (Urine sed) MODERATE Abnormal NONE SEEN /RARE [facility] Comment on above: Performed By: #### C VDAGS #### [facility] [address] [place] [address] Dr. Ashlie Hills Glucose Ql (U) Negative Normal NEGATIVE [facility] Comment on above: Performed By: #### C VDAGS #### [facility] [address] [place] [address] Dr. Ashlie Hills Hemoglobin Ql (U) TRACE-INTACT Abnormal NEGATIVE [facility] Comment on above: Performed By: #### C VDAGS #### [facility] [address] [place] [address] Dr. Ashlie Hills Ketones Ql (U) Negative Normal NEGATIVE [facility] Comment on above: Performed By: #### C VDAGS #### [facility] [address] [place] [address] Dr. Ashlie Hills LEUKOCYTES Negative Normal NEGATIVE [facility] Comment on above: Performed By: #### C VDAGS #### [facility] [address] [place] [address] Dr. Ashlie Hills MUCOUS NONE SEEN Normal NONE SEEN [facility] Comment on above: Performed By: #### C VDAGS #### [facility] [address] [place] [address] Dr. Ashlie Hills Nitrite Ql (U) Negative Normal NEGATIVE [facility] Comment on above: Performed By: #### C VDAGS #### [facility] [address] [place] [address] Dr. Ashlie Hills pH (U) 5.0 [pH] Normal 5-9 [facility] Comment on above: Performed By: #### C VDAGS #### [facility] [address] [place] [address] Dr. Ashlie Hills RBC 0-2 Normal 0-2 [facility] Comment on above: Performed By: #### C VDAGS #### [facility] [address] [place] [address] Dr. Ashlie Hills SPEC GRAVITY 1.030 Abnormal 1.005-<=1.025 [facility] Comment on above: Performed By: #### C VDAGS #### [facility] [address] [place] [address] Dr. Ashlie Hills UA PROTEIN 100 mg/dl Abnormal NEGATIVE/ TRACE [facility] Comment on above: Performed By: #### C VDAGS #### [facility] [address] [place] [address] Dr. Ashlie Hills Urobilinogen Qn (U) 0.2 {Little'U}/dL Normal 0.2 - 1. 0 [facility] Comment on above: Performed By: #### C VDAGS #### [facility] [address] [place] [address] Dr. Ashlie Hills WBC NONE SEEN Normal NONE SEEN [facility] Comment on above: Performed By: #### C VDAGS #### [facility] [address] [place] [address] Dr. Ashlie Hills CBC AUTO DIFFon 11-22-2022 BASO # 0.0 103/ul Normal 0.0-0.1 [facility] Comment on above: Performed By: #### C BC #### [facility] [address] [place] [address] Dr. Ashlie Hills Basophils/100 WBC (Bld) 0.3 % Normal 0.2-2.0 [facility] Comment on above: Performed By: #### C BC #### [facility] [address] [place] [address] Dr. Ashlie Hills EO # 0.4 103/ul Normal 0.0-0.7 [facility] Comment on above: Performed By: #### C BC #### [facility] [address] [place] [address] Dr. Ashlie Hills Eosinophils/100 WBC (Bld) 3.0 % Normal 0.9-7.0 [facility] Comment on above: Performed By: #### C BC #### [facility] [address] [place] [address] Dr. Ashlie Hills Erythrocyte distribution width (RBC) [Ratio] 15.3 % Critically high 11.0-15.0 [facility] Comment on above: Performed By: #### C BC #### [facility] [address] [place] [address] Dr. Ashlie Hills Hematocrit (Bld) [Volume fraction] 52.4 % Critically high 36.0-48.0 [facility] Comment on above: Performed By: #### C BC #### [facility] [address] [place] [address] Dr. Ashlie Hills Hemoglobin (Bld) [Mass/Vol] 16.8 g/dL Critically high 12.0-16.0 [facility] Comment on above: Performed By: #### C BC #### [facility] [address] [address] [address] Ashlie Hills IG # 0.04 10e3/ul Critically high 0.00-0.03 [facility] Comment on above: Performed By: #### C BC #### [facility] [address] [place] [address] Dr. Ashlie Hills IG % 0.3 % Normal 0.0-0.5 [facility] Comment on above: Performed By: #### C BC #### [facility] [address] [place] [address] Dr. Ashlie Hills LYMPH # 4.5 103/ul Critically high 1.2-3.8 [facility] Comment on above: Performed By: #### C BC #### [facility] [address] [place] [address] Dr. Ashlie Hills Lymphocytes/100 WBC (Bld) 33.2 % Normal 20.5-60.0 [facility] Comment on above: Performed By: #### C BC #### [facility] [address] [place] [address] Dr. Ashlie Hills MANUAL DIFF REQ NO Normal [facility] Comment on above: Performed By: #### C BC #### [facility] [address] [place] [address] Dr. Ashlie Hills MCH (RBC) [Entitic mass] 28.0 pg Normal 26.7-34.0 [facility] Comment on above: Performed By: #### C BC #### [facility] [address] [place] [address] Dr. Ashlie Hills MCHC (RBC) [Mass/Vol] 32.1 g/dL Normal 29.9-35.2 [facility] Comment on above: Performed By: #### C BC #### [facility] [address] [place] [address] Dr. Ashlie Hills MCV (RBC) [Entitic vol] 87.3 fL Normal 81.0-99.0 [facility] Comment on above: Performed By: #### C BC #### [facility] [id number] Ashlie Hills MONO # 0.8 103/ul Normal 0.3-0.8 [facility] Comment on above: Performed By: #### C BC #### [facility] [address] [place] [address] Dr. Ashlie Hills Monocytes/100 WBC (Bld) 5.7 % Normal 1.7-12.0 [facility] Comment on above: Performed By: #### C BC #### [facility] [address] [place] [address] Dr. Ashlie Hills NEUT # 7.8 103/ul Critically high 1.4-6.5 [facility] Comment on above: Performed By: #### C BC #### [facility] [address] [place] [address] Dr. Ashlie Hills Neutrophils/100 WBC (Bld) 57.5 % Normal 43.0-75.0 [facility] Comment on above: Performed By: #### C BC #### [facility] [address] [place] [address] Dr. Ashlie Hills Platelet mean volume (Bld) [Entitic vol] 12.0 fL Normal 9.5-13.5 [facility] Comment on above: Performed By: #### C BC #### [facility] [address] [place] [address] Dr. Ashlie Hills PLT 152 103/ul Normal 150-450 [facility] Comment on above: Performed By: #### C BC #### [facility] [address] [place] [address] Dr. Ashlie Hills RBC 6.00 106/ul Critically high 4.20-5.40 [facility] Comment on above: Performed By: #### C BC #### [facility] [address] [place] [address] Dr. Ashlie Hills WBC 13.6 103/ul Critically high 4.0-11.0 [facility] Comment on above: Performed By: #### C BC #### [facility] [address] [place] [address] Dr. Ashlie Hills LIPID PROFILEon 11-22-2022 CHOL-HDL RATIO NORM SEE BELOW Normal [facility] Comment on above: Result Comment: 3.3 - 4.4 LOW RISK 4.4 - 7.1 AVERAGE RISK 7.1 - 11.0 MODERATE RISK >11.0 HIGH RISK Performed By: #### C BC #### [facility] [address] [place], [place] [address] Dr. Ashlie Hills Cholesterol [Mass/Vol] 139 mg/dL Normal <=200 [facility] Comment on above: Performed By: #### C BC #### [facility] [address], [place] [address] Dr. Ashlie Hills Cholesterol in HDL [Mass/Vol] 35 mg/dL Critically low 40-60 [facility] Comment on above: Performed By: #### C BC #### [facility] [address], [place] [address] Dr. Ashlie Hills Cholesterol in LDL [Mass/Vol] 67.4 mg/dL Normal [facility] Comment on above: Performed By: #### C BC #### [facility] [address], [place] [address] Dr. Ashlie Hills Cholesterol.total/Ch olesterol in HDL [Mass ratio] 4.0 {ratio} Normal [facility] Comment on above: Performed By: #### C BC #### [facility] [address], [place] [address] Dr. Ashlie Hills HDL NORMAL > or = 60 mg/dl - LOW CARDIOVASCULAR RISK <40 mg/dl - HIGH CARDIOVASCULAR RISK Normal [facility] Comment on above: Performed By: #### C BC #### [facility] [address], [place] [address] Dr. Ashlie Hills LDL CALC NORMAL SEE BELOW Normal [facility] Comment on above: Result Comment: <100 mg/dl OPTIMAL 100 - 129 mg/dl NEAR OR ABOVE OPTIMAL 130 - 159 mg/dl BORDERLINE HIGH 160 - 189 mg/dl HIGH >190 mg/dl VERY HIGH Performed By: #### C BC #### [facility] [id number] Ashlie Hills Triglyceride [Mass/Vol] 183 mg/dL Critically high <=150 [facility] Comment on above: Performed By: #### C BC #### [facility] [address], [place] [address] Dr. Ashlie Hills VLDL CALC 36.6 mg/dL Normal [facility] Comment on above: Performed By: #### C BC #### [facility] [address], [place] [address] Dr. 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 LOCATION: [facility] BREAST COMPOSITION: Almost entirely fatty. FINDINGS: [...] M.D. on 11/22/2022 at 12:09 Normal [facility] PROF 14(COMP METB)on 05-17-2 023 Albumin [Mass/Vol] 3.0 g/dL Critically low 3.4-5.0 [facility] Comment on above: Performed By: #### C BC #### [facility] [address] [place] [address] Dr. Ashlie Hills Albumin/Globulin [Mass ratio] 0.6 {ratio} Normal [facility] Comment on above: Performed By: #### C BC #### [facility] [address] [address] [address] Ashlie Hills ALP [Catalytic activity/Vol] 68 U/L Normal 46-116 [facility] Comment on above: Performed By: #### C BC #### [facility] [address] [place] [address] Dr. Ashlie Hills ALT [Catalytic activity/Vol] 14 U/L Normal 14-59 [facility] Comment on above: Performed By: #### C BC #### [facility] [address] [place] [address] Dr. Ashlie Hills Anion gap [Moles/Vol] 12.1 mmol/L Normal [facility] Comment on above: Performed By: #### C BC #### [facility] [address] [place] [address] Dr. Ashlie Hills AST [Catalytic activity/Vol] 9 U/L Critically low 15-37 [facility] Comment on above: Performed By: #### C BC #### [facility] [address] [place] [address] Dr. Ashlie Hills Bilirubin [Mass/Vol] 0.4 mg/dL Normal 0.2-1.0 [facility] Comment on above: Performed By: #### C BC #### [facility] [address] [place] [address] Dr. Ashlie Hills Calcium [Mass/Vol] 9.0 mg/dL Normal 8.5-10.[address] [facility] Comment on above: Performed By: #### C BC #### [facility] [address] [place] [address] Dr. Ashlie Hills Chloride [Moles/Vol] 105 mmol/L Normal 98-107 [facility] Comment on above: Performed By: #### C BC #### [facility] [address] [address] [address] Ashlie Hills CO2 [Moles/Vol] 30.7 mmol/L Normal 21.0-32.0 [facility] Comment on above: Performed By: #### C BC #### [facility] [address] [address] [address] Ashlie Hills Creatinine [Mass/Vol] 0.77 mg/dL Normal 0.55-1.02 [facility] Comment on above: Performed By: #### C BC #### [facility] [address] [address] [address] Ashlie Hills EGFR-AF MONEGASQUE >60 Normal >=60 [facility] Comment on above: Performed By: #### C BC #### [facility] [address] [address] [address] Ashlie Hills EGFR-NON AF MONEGASQUE >60 Normal >=60 [facility] Comment on above: Performed By: #### C BC #### [facility] [address] [address] [address] Ashlie Hills Globulin (S) [Mass/Vol] 4.8 g/dL Normal [facility] Comment on above: Performed By: #### C BC #### [facility] [address] [address] [address] Ashlie Hills Glucose [Mass/Vol] 162 mg/dL Critically high 74-106 [facility] Comment on above: Performed By: #### C BC #### [facility] [address] [address] [address] Ashlie Hills Potassium [Moles/Vol] 3.8 mmol/L Normal 3.5-5.1 [facility] Comment on above: Performed By: #### C BC #### [facility] [address] [address] [address] Ashlie Hills Protein [Mass/Vol] 7.8 g/dL Normal 6.4-8.2 [facility] Comment on above: Performed By: #### C BC #### [facility] [address], [place] [address] Dr[address] Ashlie Hills Sodium [Moles/Vol] 144 mmol/L Normal 136-145 [facility] Comment on above: Performed By: #### C BC #### [facility] [address] [address] [address] Ashlie Hills Urea nitrogen [Mass/Vol] 24.0 mg/dL Critically high 7.0-18.0 [facility] Comment on above: Performed By: #### C BC #### [facility] [address] [address] [address] Ashlie Hills Urea nitrogen/Creatinine [Mass ratio] 31.2 mg/mg Normal [facility] Comment on above: Performed By: #### C BC #### [facility] [address] [address] [address] Ashlie Hills Patient Educationon 11-16-19 23 [...] Spinach (cooked), rhubarb, beets, sweet potatoes, and Kazakh chard. ? Peanuts. ? Potato chips, cameroonian fries, and baked potatoes with skin on. ? Nuts and nut products. ? Chocolate. ? If you regularly take a diuretic medicine, make sure to eat at least 1 or 2 servings of fruits or vegetables that are high in potassium each day. These include: ? Avocado. ? Banana. ? Alden, prune, carrot, or tomato juice. ? Baked [...] fish oil, or vitamin B6. ? Take ttdc-xof-xlcovar and prescription medicines only as told by your health care provider. These include supplements. What foods should I limit? Limit your in (more content not included)... Normal [facility] Reminderson 11-15-2022 Reminders - From: Maria Elena [...] Contact Information SILVIA HOWELL, GAVIOTA Webb, URL [address] [facility] [place] [address] Additional Instructions: [address] AP w [...] (1/2 pack (more content not included)... Normal [facility] Comment on above: Result Comment: Elec tronically Signed By: GAVIOTA VEGA PA-C\.br\Date and Time Signed: 11/15/22 14:32 EDT\.br\Electronically Co-Signed By: Maria Elena Negrete\.br\Date and Time Co-Signed: 11/15/22 14:22 EDT\.br\Electronically Co-Signed By: Maria Elena Negreet\.br\Date and Time Co-Signed: 11/15/22 14:22 EDT CBC AUTO DIFFon 10-05-2022 BASO # 0.1 103/ul Normal 0.0-0.1 [facility] Comment on above: Performed By: #### C BC #### [facility] [address] [place] [address] Dr. Ashlie Hills Basophils/100 WBC (Bld) 0.6 % Normal 0.2-2.0 [facility] Comment on above: Performed By: #### C BC #### [facility] [address] [address] [address] Ashlie Hills EO # 0.3 103/ul Normal 0.0-0.7 [facility] Comment on above: Performed By: #### C BC #### [facility] [address] [place] [address] Dr. Ashlie Hills Eosinophils/100 WBC (Bld) 2.1 % Normal 0.9-7.0 [facility] Comment on above: Performed By: #### C BC #### [facility] [address] [place] [address] Dr. Ashlie Hills Erythrocyte distribution width (RBC) [Ratio] 15.9 % Critically high 11.0-15.0 [facility] Comment on above: Performed By: #### C BC #### [facility] [address] [place] [address] Dr. Ashlie Hills Hematocrit (Bld) [Volume fraction] 51.8 % Critically high 36.0-48.0 [facility] Comment on above: Performed By: #### C BC #### [facility] [address] [place] [address] Dr. Ashlie Hills Hemoglobin (Bld) [Mass/Vol] 16.6 g/dL Critically high 12.0-16.0 [facility] Comment on above: Performed By: #### C BC #### [facility] [address] [place] [address] Dr. Ashlie Hills IG # 0.03 10e3/ul Normal 0.00-0.03 [facility] Comment on above: Performed By: #### C BC #### [facility] [address] [place] [address] Dr. Ashlie Hills IG % 0.2 % Normal 0.0-0.5 [facility] Comment on above: Performed By: #### C BC #### [facility] [address] [place] [address] Dr. Ashlie Hills LYMPH # 3.9 103/ul Critically high 1.2-3.8 [facility] Comment on above: Performed By: #### C BC #### [facility] [address] [place] [address] Dr. Ashlie Hills Lymphocytes/100 WBC (Bld) 31.7 % Normal 20.5-60.0 [facility] Comment on above: Performed By: #### C BC #### [facility] [address] [place] [address] Dr. Ashlie Hills MANUAL DIFF REQ NO Normal [facility] Comment on above: Performed By: #### C BC #### [facility] [address] [place] [address] Dr. Ashlie Hills MCH (RBC) [Entitic mass] 27.9 pg Normal 26.7-34.0 [facility] Comment on above: Performed By: #### C BC #### [facility] [address] [place] [address] Dr. Ashlie Hills MCHC (RBC) [Mass/Vol] 32.0 g/dL Normal 29.9-35.2 [facility] Comment on above: Performed By: #### C BC #### [facility] [address] [place] [address] Dr. Ashlie Hills MCV (RBC) [Entitic vol] 87.1 fL Normal 81.0-99.0 [facility] Comment on above: Performed By: #### C BC #### [facility] [address] [place] [address] Dr. Ashlie Hills MONO # 0.7 103/ul Normal 0.3-0.8 [facility] Comment on above: Performed By: #### C BC #### [facility] [address] [place] [address] Dr. Ashlie Hills Monocytes/100 WBC (Bld) 5.8 % Normal 1.7-12.0 [facility] Comment on above: Performed By: #### C BC #### [facility] [address] [place] [address] Dr. Ashlie Hills NEUT # 7.3 103/ul Critically high 1.4-6.5 [facility] Comment on above: Performed By: #### C BC #### [facility] [address] [place] [address] Dr. Ashlie Hills Neutrophils/100 WBC (Bld) 59.6 % Normal 43.0-75.0 [facility] Comment on above: Performed By: #### C BC #### [facility] [address] [address] [address] Ashlie Hills Platelet mean volume (Bld) [Entitic vol] 11.7 fL Normal 9.5-13.5 [facility] Comment on above: Performed By: #### C BC #### [facility] [address] [address] [address] Ashlie Hills PLT 117 103/ul Critically low 150-450 [facility] Comment on above: Performed By: #### C BC #### [facility] [address] [address] [address] Ashlie Hills RBC 5.95 106/ul Critically high 4.20-5.40 [facility] Comment on above: Performed By: #### C BC #### [facility] [address] [address] [address] Ashlie Hills WBC 12.3 103/ul Critically high 4.0-11.0 [facility] Comment on above: Performed By: #### C BC #### [facility] [id number] Ashlie Hills CT ABD/PELV W CONon [...] RICCO PICKARD Date: 2022-10-05 13:13 Normal [facility] ER URINE PROFILEon 3 Bilirubin Ql (U) Negative Normal NEGATIVE [facility] Comment on above: Performed By: #### P OCGLUC #### [facility] [address] [address] [address] Ashlie Hills Clarity (U) CLEAR Normal CLEAR [facility] Comment on above: Performed By: #### P OCGLUC #### [facility] [address] [place] [address] Dr. Ashlie Hills Color (U) YELLOW Normal YELLOW [facility] Comment on above: Performed By: #### P OCGLUC #### [facility] [address] [address] [address] Ashlie Hills ERUAHBraulio A micrscopic examination will be performed if indicated. Normal [facility] Comment on above: Performed By: #### P OCGLUC #### [facility] [address] [address] [address] Ashlie Hills Glucose Ql (U) Negative Normal NEGATIVE [facility] Comment on above: Performed By: #### P OCGLUC #### [facility] [address] [address] [address] Ashlie Hills Hemoglobin Ql (U) Negative Normal NEGATIVE [facility] Comment on above: Performed By: #### P OCGLUC #### [facility] [address] [address] [address] Ashlie Hills Ketones Ql (U) Negative Normal NEGATIVE [facility] Comment on above: Performed By: #### P OCGLUC #### [facility] [address] [address] [address] Ashlie Hills LEUKOCYTES Negative Normal NEGATIVE [facility] Comment on above: Performed By: #### P OCGLUC #### [facility] [address] [place] [address] Dr. Ashlie Hills Nitrite Ql (U) Negative Normal NEGATIVE [facility] Comment on above: Performed By: #### P OCGLUC #### [facility] [address] [place] [address] Dr. Ashlie Hills pH (U) 6.0 [pH] Normal 5-9 [facility] Comment on above: Performed By: #### P OCGLUC #### [facility] [address] [place] [address] Dr. Ashlie Hills Protein (U) [Mass/Vol] 100 mg/dL Abnormal NEGATIVE/ TRACE [facility] Comment on above: Performed By: #### P OCGLUC #### [facility] [address] [place] [address] Dr. Ashlie Hills SPEC GRAVITY 1.010 Normal 1.005-<=1.025 [facility] Comment on above: Performed By: #### P OCGLUC #### [facility] [address] [place] [address] Dr. Ashlie Hills UR MICRO IND INDICATED Normal [facility] Comment on above: Performed By: #### P OCGLUC #### [facility] [address] [place] [address] Dr. Ashlie Hills Urobilinogen Qn (U) 1.0 {Little'U}/dL Normal 0.2 - 1. 0 [facility] Comment on above: Performed By: #### P OCGLUC #### [facility] [address] [place] [address] Dr. Ashlie Hills LIPASEon 10-05-2022 Lipase [Catalytic activity/Vol] 1771.0 U/L Critically high 73.0-393.0 [facility] Comment on above: Performed By: #### C BC #### [facility] [address] [place] [address] Dr. Ashlie Hills PREG HCG QUALon 10-05-2022 , QUAL Negative Normal NEGATIVE [facility] Comment on above: Performed By: #### P OCGLUC #### [facility] [address] [place] [address] Dr. Ashlie Hills PROF 14(COMP METB)on 023 Albumin [Mass/Vol] 3.2 g/dL Critically low 3.4-5.0 [facility] Comment on above: Performed By: #### C BC #### [facility] [address] [place] [address] Dr. Ashlie Hills Albumin/Globulin [Mass ratio] 0.7 {ratio} Normal [facility] Comment on above: Performed By: #### C BC #### [facility] [address] [place] [address] Dr. Ashlie Hills ALP [Catalytic activity/Vol] 70 U/L Normal 46-116 [facility] Comment on above: Performed By: #### C BC #### [facility] [address] [place] [address] Dr. Ashlie Hills ALT [Catalytic activity/Vol] 11 U/L Critically low 14-59 [facility] Comment on above: Performed By: #### C BC #### [facility] [address] [place] [address] Dr. Ashlie Hills Anion gap [Moles/Vol] 10.3 mmol/L Normal [facility] Comment on above: Performed By: #### C BC #### [facility] [address] [place] [address] Dr. Ashlie Hills AST [Catalytic activity/Vol] 11 U/L Critically low 15-37 [facility] Comment on above: Performed By: #### C BC #### [facility] [address] [place] [address] Dr. Ashlie Hills Bilirubin [Mass/Vol] 0.9 mg/dL Normal 0.2-1.0 [facility] Comment on above: Performed By: #### C BC #### [facility] [address] [place] [address] Dr. Ashlie Hills Calcium [Mass/Vol] 9.3 mg/dL Normal 8.5-10.[address] [facility] Comment on above: Performed By: #### C BC #### [facility] [address] [place] [address] Dr. Ashlie Hills Chloride [Moles/Vol] 105 mmol/L Normal 98-107 [facility] Comment on above: Performed By: #### C BC #### [facility] [address] [place] [address] Dr. Ashlie Hills CO2 [Moles/Vol] 30.6 mmol/L Normal 21.0-32.0 [facility] Comment on above: Performed By: #### C BC #### [facility] [address] [address] [address] Ashlie Hills Creatinine [Mass/Vol] 0.62 mg/dL Normal 0.55-1.02 [facility] Comment on above: Performed By: #### C BC #### [facility] [address] [place] [address] Dr. Ashlie Hills EGFR-AF MONEGASQUE >60 Normal >=60 [facility] Comment on above: Performed By: #### C BC #### [facility] [address] [place] [address] Dr. Ashlie Hills EGFR-NON AF MONEGASQUE >60 Normal >=60 [facility] Comment on above: Performed By: #### C BC #### [facility] [address] [address] [address] Ashlie Hills Globulin (S) [Mass/Vol] 4.6 g/dL Normal [facility] Comment on above: Performed By: #### C BC #### [facility] [address] [place] [address] Dr. Ashlie Hills Glucose [Mass/Vol] 85 mg/dL Normal 74-106 [facility] Comment on above: Performed By: #### C BC #### [facility] [address] [place] [address] Dr. Ashlie Hills Potassium [Moles/Vol] 3.9 mmol/L Normal 3.5-5.1 [facility] Comment on above: Performed By: #### C BC #### [facility] [address] [place] [address] Dr. Ashlie Hills Protein [Mass/Vol] 7.8 g/dL Normal 6.4-8.2 [facility] Comment on above: Performed By: #### C BC #### [facility] [address] [address] [address] Ashlie Hills Sodium [Moles/Vol] 142 mmol/L Normal 136-[address] [facility] Comment on above: Performed By: #### C BC #### [facility] [address] [address] [address] Ashlie Hills Urea nitrogen [Mass/Vol] 12.0 mg/dL Normal 7.0-18.0 [facility] Comment on above: Performed By: #### C BC #### [facility] [address] [place] [address] Dr. Ashlie Hills Urea nitrogen/Creatinine [Mass ratio] 19.4 mg/mg Normal [facility] Comment on above: Performed By: #### C BC #### [facility] [address] [place] [address] Dr. Ashlie Hills URINE MICROSCOPIC ONLYon BACTERIA TRACE Abnormal NONE SEEN [facility] Comment on above: Performed By: #### P OCGLUC #### [facility] [address] [place] [address] Dr. Ashlie Hills Bacteria identified Cx Nom (U) NOT INDICATED Normal [facility] Comment on above: Performed By: #### P OCGLUC #### [facility] [address] [place] [address] Dr. Ashlie Hills CAST NONE SEEN Normal NONE SEEN [facility] Comment on above: Performed By: #### P OCGLUC #### [facility] [address] [place] [address] Dr. Ashlie Hills Crystals LM Nom (Urine sed) NONE SEEN Normal NONE SEEN [facility] Comment on above: Performed By: #### P OCGLUC #### [facility] [address] [place] [address] Dr. Ashlie Hills Epithelial cells LM Ql (Urine sed) MODERATE Abnormal NONE SEEN /RARE [facility] Comment on above: Performed By: #### P OCGLUC #### [facility] [address] [place] [address] Dr. Ashlie Hills MUCOUS NONE SEEN Normal NONE SEEN [facility] Comment on above: Performed By: #### P OCGLUC #### [facility] [address] [address] [address] Ashlie Hills RBC 0-2 Normal 0-2 [facility] Comment on above: Performed By: #### P OCGLUC #### [facility] [address] [place] [address] Dr. Ashlie Hills WBC 0-2 Abnormal NONE SEEN [facility] Comment on above: Performed By: #### P OCGLUC #### [facility] [address] [place] [address] Dr. Ashlie Hills Covid-19 PCR ([facility])on 09-06 SARS-CoV-2 (COVID-19) RNA MADDY+probe Ql (Unsp spec) Detected Abnormal NOT DETECTED [facility] Comment on above: Result Comment: This test is not yet approved or cleared by the [place] FDA. When there are no FDA-approved or cleared tests available, and other criteria are met, FDA can make tests available under an emergency access mechanism called an Emergency Use Authorization (EUA). The EUA for this test is supported by the Technical Support Internship of Health and Human Service's declaration that [...] used). Performed By: #### C VDAGS #### [facility] [address] [place] [address] Dr. Ashlie Hills INFLUENZA A AND B AGon 09-21 INFLUANEGH SEE BELOW Normal [facility] Comment on above: Result Comment: Nega tive for Flu A protein angiten. Infection due to Flu A cannot be ruled out. Flu A angiten in the sample may be below the detection limit of the test. Performed By: #### I NFLUAB #### [facility] [address] [place] [address] Dr. Ashlie Hills INFLUBNEGH SEE BELOW Normal [facility] Comment on above: Result Comment: Nega tive for Flu B protein antigen. Infection due to Flu B cannot be ruled out. Flu B antigen in the sample may be below the detection limit of the test. Performed By: #### I NFLUAB #### [facility] [address] [place] [address] Dr. Ashlie Hills INFLUENZA A AG Negative Normal NEGATIVE SEE COMMENT [facility] Comment on above: Performed By: #### I NFLUAB #### [facility] [address] [address] [address] Ashlie Hills INFLUENZA B AG Negative Normal NEGATIVE SEE COMMENT [facility] Comment on above: Performed By: #### I NFLUAB #### [facility] [address] [place] [address] Dr. Ashlie Hills RAD - CT Reporton 07-31-2022 RAD - CT Report [id number] #1.00CD:127 Normal [facility] CT ABD/PELV W CONon 07-27-19 CT ABD/PELV [...] to at least 10/21/2018, unchanged. [email or web address].ncbi.nlm .nih.gov/pmc/article s/[email or web address] Electronically authenticated by: COLLIN HUERTAS Date: 2022-07-27 14:56 Normal [facility] Reminders 07-27-2022 Reminders - From: Raquel Tidwell To: EU - Recalls Vargas; Sent: 02/06/2022 11:45:57 EDT Show up: 07/09/2022 11:45:00 EST Subject: Ct scan Due Date/Time: 07/31/2022 11:45:00 EST Reminder/Recall Pt needs Ct scan abd/pelvis w contrast ATTN Adrenals scheduled prior to Aug 2022 appt. She wants [facility] order faxed to [facility] Pt scheduled for 07/27/2022 will monitor [facility] for results over the next few days Normal [facility] Physician Orderon 07-19-2022 Physician Order [id number] #[id number]:127 Normal [facility] CREATININEon 07-18-2022 Creatinine [Mass/Vol] 0.81 mg/dL Normal 0.55-1.02 [facility] Comment on above: Performed By: #### C BC #### [facility] [address] [place] [address] Dr. Ashlie Hills EGFR-AF MONEGASQUE >60 Normal >=60 [facility] Comment on above: Performed By: #### C BC #### [facility] [address] [place] [address] Dr. Ashlie Hills EGFR-NON AF MONEGASQUE >60 Normal >=60 [facility] Comment on above: Performed By: #### C BC #### [facility] [address] [place] [address] LOW EXT W [...] PATRICIA IVAN Date: 2022-07-18 14:58 Normal [facility] XR KNEE LT 1_2 Von 3 [...] HATTIE BAUTISTA Date: 2022-07-18 12:00 Normal [facility]-09 SARS-CoV-2 (COVID-19) RNA MADDY+probe Ql (Unsp spec) Not detected Normal NOT DETECTED [facility] Comment on above: Result Comment: This test is not yet approved or cleared by the [place] FDA. When there are no FDA-approved or cleared tests available, and other criteria are met, FDA can make tests available under an emergency access mechanism called an Emergency Use Authorization (EUA). The EUA for this test is supported by the Technical Support Internship of Health and Human Service's (HHS's) declaration [...] SARS-CoV-2. Performed By: #### C BC #### [facility] [address] [place] [address] Dr. Ashlie Hills INFLUENZA A AND B AGon 07-06 INFLUANE SEE BELOW Normal [facility] Comment on above: Result Comment: Nega tive for Flu A protein angiten. Infection due to Flu A cannot be ruled out. Flu A angiten in the sample may be below the detection limit of the test. Performed By: #### C BC #### [facility] [address] [place] [address] Dr. Ashlie Hills INFLUBNEG SEE BELOW Normal [facility] Comment on above: Result Comment: Nega tive for Flu B protein antigen. Infection due to Flu B cannot be ruled out. Flu B antigen in the sample may be below the detection limit of the test. Performed By: #### C BC #### [facility] [address] [place] [address] Dr. Ashlie Hills INFLUENZA A AG Negative Normal NEGATIVE SEE COMMENT [facility] Comment on above: Performed By: #### C BC #### [facility] [address] [place] [address] Dr. Ashlie Hills INFLUENZA B AG Negative Normal NEGATIVE SEE COMMENT [facility] Comment on above: Performed By: #### C BC #### [facility] [address] [place] [address] Dr. Ashlie Hills POINT OF CARE GLUCOSEon 04-08 Glucose [Mass/Vol] 108 mg/dL Critically high 74-106 [facility] Comment on above: Performed By: #### C BC #### [facility] [address] [place] [address] Dr. Ashlie Hills RAGHU by IFAon 03-07-2022 Antinuclear Antibodies, IFA Negative Normal [facility] Comment on above: Result Comment: Nega tive <1:80 Borderline 1:80 Positive >1:80 ICAP nomenclature: AC-0 For more information about Hep-2 cell patterns use ANApatterns.org, the official website for the International Consensus on Antinuclear Antibody (RAGHU) Patterns (ICAP). Performed By: #### A NAPARESH #### [facility] [address] [place] [address] Dr. Ashlie Hills IMMUNOFIXATION (TREVON), URINEo n 03-07-2022 TREVON Interpretation:U Comment Normal [facility] Comment on above: Result Comment: No m onoclonality detected. Performed By: #### C BC #### [facility] [address] [place] [address] Dr. Ashlie Hills IMMUNOFIXATION(TREVON),PROTEIN ELEC(PE),FREon 03-07-2022 Albumin [Mass/Vol] 3.0 g/dL Normal 2.9-4.[address] [facility] Comment on above: Performed By: #### I NFLUAB #### [facility] [address] [place] [address] Dr. Ashlie Hills Albumin/Globulin [Mass ratio] 0.8 {ratio} Normal 0.7-1.7 [facility] Comment on above: Performed By: #### I NFLUAB #### [facility] [address] [place] [address] Dr. Ashlie Hills Gxacw-4-Mblmwbzo 0.3 g/dL Normal 0.0-0.4 [facility] Comment on above: Performed By: #### I NFLUAB #### [facility] [address] [place] [address] Dr. Ashlie Hills Rqqiu-4-Iyddljdz 1.0 g/dL Normal 0.4-1.0 [facility] Comment on above: Performed By: #### I NFLUAB #### [facility] [address] [place] [address] Dr. Ashlie Hills Beta Globulin 1.8 g/dL Critically high 0.7-1.3 [facility] Comment on above: Performed By: #### I NFLUAB #### [facility] [address] [place] [address] Dr. Ashlie Hills Free Murillo Lt Chains,S 45.2 mg/L Critically high 3.3-19.4 [facility] Comment on above: Performed By: #### I NFLUAB #### [facility] [address] [place] [address] Dr. Ashlie Hills Free Lambda Lt Chains,S 40.3 mg/L Critically high 5.7-26.3 [facility] Comment on above: Performed By: #### I NFLUAB #### [facility] [address] [place] [address] Dr. Ashlie Hills Gamma Globulin 0.8 g/dL Normal 0.4-1.8 [facility] Comment on above: Performed By: #### I NFLUAB #### [facility] [address] [place] [address] Dr. Ashlie Hills Globulin (S) [Mass/Vol] 3.9 g/dL Normal 2.2-3.9 [facility] Comment on above: Performed By: #### I NFLUAB #### [facility] [address] [place] [address] Dr. Ashlie Hills Immunofixation Result, Serum Comment Normal [facility] Comment on above: Result Comment: No m onoclonality detected. Performed By: #### I NFLUAB #### [facility] [address] [place] [address] Dr. Ashlie Hills Immunoglobulin A, Qn, Serum 776 mg/dL Critically high 87-352 [facility] Comment on above: Performed By: #### I NFLUAB #### [facility] [address] [place] [address] Dr. Ashlie Hills Immunoglobulin G, Qn, Serum 955 mg/dL Normal 586-1602 [facility] Comment on above: Performed By: #### I NFLUAB #### [facility] [address] [place] [address] Dr. Ashlie Hills Immunoglobulin M, Qn, Serum 39 mg/dL Normal 26-217 [facility] Comment on above: Performed By: #### I NFLUAB #### [facility] [address] [place] [address] Dr. Ashlie Hills Murillo/Lambda Ratio, S 1.12 Normal 0.26-1.65 [facility] Comment on above: Performed By: #### I NFLUAB #### [facility] [address] [place] [address] Dr. Ashlie Hills M-Bright Not Observed Normal Not Observed [facility] Comment on above: Performed By: #### I NFLUAB #### [facility] [address] [place] [address] Dr. Ashlie Hills PDF . Normal [facility] Comment on above: Performed By: #### I NFLUAB #### [facility] [address] [place] [address] Dr. Ashlie Hills Please note: Comment Normal [facility] Comment on above: Result Comment: Prot ein electrophoresis scan will follow via computer, mail, or waste elimination delivery. Performed By: #### I NFLUAB #### [facility] [address] [place] [address] Dr. Ashlie Hills Protein [Mass/Vol] 6.9 g/dL Normal 6.0-8.5 [facility] Comment on above: Performed By: #### I NFLUAB #### [facility] [address] [place] [address] Dr. Ashlie Hills C-PEPTIDE, SERUMon 2 C-Peptide, Serum 3.1 ng/mL Normal 1.1-4.4 [facility] Comment on above: Result Comment: C-Pe ptide reference interval is for fasting patients. Performed By: #### C PEPT #### [facility] [address] [place] [address] Dr. Ashlie Hills HEP B SURFACE ANTIGEN SCREEN on 03-04-2022 HBsAg Screen Negative Normal Negative [facility] Comment on above: Performed By: #### C BC #### [facility] [address] [place] [address] Dr. Ashlie Hills HEPATITIS C VIRUS AB W/ REFL EX QUANTon 03-04-2022 HCV AB <0.1 Normal 0.0-0.9 [facility] Comment on above: Performed By: #### I NFLUAB #### [facility] [address] [address] [address] Ashlie Hills Interpretation: Comment Normal [facility] Comment on above: Result Comment: Rupert tikike Not infected with HCV, unless recent infection is suspected or other evidence exists to indicate HCV infection. Performed By: #### I NFLUAB #### [facility] [address] [address] [address] Ashlie Hills MICROALBUMIN/ CREATININE RAT IOon 03-04-2022 Albumin, Urine 367.4 ug/mL Normal Not Estab. [facility] Comment on above: Performed By: #### C BC #### [facility] [address] [address] [address] Ashlie Hills Albumin/ Creatinine Ratio 239 mg/g creat Critically high 0-29 [facility] Comment on above: Result Comment: Norm al: 0 - 29 Moderately increased: 30 - 300 Severely increased: >300 Performed By: #### C BC #### [facility] [address] [address] [address] Ashlie Hills Creatinine, Urine 153.9 mg/dL Normal Not Estab. [facility] Comment on above: Performed By: #### C BC #### [facility] [address] [address] [address] Ashlie Hills VIT D 25-OH LABCORPon 2021 Vitamin D, 25-Hydroxy <4.0 Critically low 30.0-100.0 [facility] Comment on above: Result Comment: Graciela min D deficiency has been defined by the [place] of [employer] and an Endocrine Society practice guideline as a level of serum 25-OH vitamin D less than 20 ng/mL (1,2). The Endocrine Society went on to further define vitamin D insufficiency as a level between 21 and 29 ng/mL (2). 1. IOM ([place] of [employer]). 2010. Dietary reference intakes for calcium and D. [place]: The National Academies Press. 2. Lynda STAHL, Keely OLIVEROS, Leandra LOPEZ, et al. Evaluation, treatment, and prevention of vitamin D deficiency: an Endocrine Society clinical practice guideline. JCEM. 2010; 96(7):1911-30. Performed By: #### C BC #### [facility] [address] [place] [address] Dr. Ashlie Hills GLYCOHEMOGLOBIN A1Con 2021 ADA RECOMMENDATION SEE BELOW Normal [facility] Comment on above: Result Comment: ADA RECOMMENDED LIMIT 4.0 - 6.0 ADA THERAPEUTIC TARGET < 7.0 ACTION SUGGESTED > 7.0 Performed By: #### C VDAGS #### [facility] [address] [place] [address] Dr. Ashlie Hills Glucose [Mass/Vol] 295 mg/dL Normal [facility] Comment on above: Performed By: #### C VDAGS #### [facility] [address] [place] [address] Dr. Ashlie Hills HbA1c (Bld) [Mass fraction] 11.9 % Critically high 4.5-6.2 [facility] Comment on above: Performed By: #### C VDAGS #### [facility] [address] [place] [address] Dr. Ashlie Hills HEMOGRAM AND PLATELon 2021 Hematocrit (Bld) [Volume fraction] 56.3 % Critically high 36.0-48.0 [facility] Comment on above: Performed By: #### C VDAGS #### [facility] [address] [place] [address] Dr. Ashlie Hills Hemoglobin (Bld) [Mass/Vol] 18.0 g/dL Critically high 12.0-16.0 [facility] Comment on above: Performed By: #### C VDAGS #### [facility] [address] [place] [address] Dr. Ashlie Hills MCH (RBC) [Entitic mass] 29.5 pg Normal 26.7-34.0 [facility] Comment on above: Performed By: #### C VDAGS #### [facility] [address] [place] [address] Dr. Ashlie Hills MCHC (RBC) [Mass/Vol] 32.0 g/dL Normal 29.9-35.2 [facility] Comment on above: Performed By: #### C VDAGS #### [facility] [address] [place] [address] Dr. Ashlie Hills MCV (RBC) [Entitic vol] 92.1 fL Normal 81.0-99.0 [facility] Comment on above: Performed By: #### C VDAGS #### [facility] [address] [place] [address] Dr. Ashlie Hills PLT 123 103/ul Critically low 150-450 [facility] Comment on above: Performed By: #### C VDAGS #### [facility] [address] [place] [address] Dr. Ashlie Hills RBC 6.11 106/ul Critically high 4.20-5.40 [facility] Comment on above: Performed By: #### C VDAGS #### [facility] [address] [place] [address] Dr. Ashlie Hills WBC 16.4 103/ul Critically high 4.0-11.0 [facility] Comment on above: Performed By: #### C VDAGS #### [facility] [address] [place] [address] Dr. Ashlie Hills LIPID PROFILEon 03-03-2022 CHOL-HDL RATIO NORM SEE BELOW Normal [facility] Comment on above: Result Comment: 3.3 - 4.4 LOW RISK 4.4 - 7.1 AVERAGE RISK 7.1 - 11.0 MODERATE RISK >11.0 HIGH RISK Performed By: #### C VDAGS #### [facility] [address] [place] [address] Dr. Ashlie Hills Cholesterol [Mass/Vol] 159 mg/dL Normal <=200 [facility] Comment on above: Performed By: #### C VDAGS #### [facility] [address] [place] [address] Dr. Ashlie Hills Cholesterol in HDL [Mass/Vol] 40 mg/dL Normal 40-60 [facility] Comment on above: Performed By: #### C VDAGS #### [facility] [address] [place] [address] Dr. Ashlie Hills Cholesterol in LDL [Mass/Vol] 81.8 mg/dL Normal [facility] Comment on above: Performed By: #### C VDAGS #### [facility] [address] [address] [address] Ashlie Hills Cholesterol.total/Ch olesterol in HDL [Mass ratio] 4.0 {ratio} Normal [facility] Comment on above: Performed By: #### C VDAGS #### [facility] [address] [address] [address] Ashlie Hills HDL NORMAL > or = 60 mg/dl - LOW CARDIOVASCULAR RISK <40 mg/dl - HIGH CARDIOVASCULAR RISK Normal [facility] Comment on above: Performed By: #### C VDAGS #### [facility] [address] [address] [address] Ashlie Hills LDL CALC NORMAL SEE BELOW Normal [facility] Comment on above: Result Comment: <100 mg/dl OPTIMAL 100 - 129 mg/dl NEAR OR ABOVE OPTIMAL 130 - 159 mg/dl BORDERLINE HIGH 160 - 189 mg/dl HIGH >190 mg/dl VERY HIGH Performed By: #### C VDAGS #### [facility] [address] [address] [address] Ashlie Hills Triglyceride [Mass/Vol] 186 mg/dL Critically high <=150 [facility] Comment on above: Performed By: #### C VDAGS #### [facility] [address] [address] [address] Ashlie Hills VLDL CALC 37.2 mg/dL Normal [facility] Comment on above: Performed By: #### C VDAGS #### [facility] [address] [address] [address] Ashlie Hills RENAL FUNCTION PANELon 03-03 Albumin [Mass/Vol] 3.1 g/dL Critically low 3.4-5.0 [facility] Comment on above: Performed By: #### C BC #### [facility] [address] [address] [address] Ashlie Hills Calcium [Mass/Vol] 9.2 mg/dL Normal 8.5-10.[address] [facility] Comment on above: Performed By: #### C BC #### [facility] [address] [address] [address] Ashlie Hills Chloride [Moles/Vol] 102 mmol/L Normal 98-107 [facility] Comment on above: Performed By: #### C BC #### [facility] [address] [address] [address] Ashlie Hills CO2 [Moles/Vol] 31.9 mmol/L Normal 21.0-32.0 [facility] Comment on above: Performed By: #### C BC #### [facility] [address] [address] [address] Ashlie Hills Creatinine [Mass/Vol] 0.68 mg/dL Normal 0.55-1.02 [facility] Comment on above: Performed By: #### C BC #### [facility] [address] [address] [address] Ashlie Hills EGFR-AF MONEGASQUE >60 Normal >=60 [facility] Comment on above: Performed By: #### C BC #### [facility] [address] [address] [address] Ashlie Hills EGFR-NON AF MONEGASQUE >60 Normal >=60 [facility] Comment on above: Performed By: #### C BC #### [facility] [address] [address] [address] Ashlie Hills Glucose [Mass/Vol] 131 mg/dL Critically high 74-106 [facility] Comment on above: Performed By: #### C BC #### [facility] [address] [address] [address] Ashlie Hills Phosphate [Mass/Vol] 4.0 mg/dL Normal 2.6-4.7 [facility] Comment on above: Performed By: #### C BC #### [facility] [address] [address] [address] Ashlie Hills Potassium [Moles/Vol] 4.0 mmol/L Normal 3.5-5.1 [facility] Comment on above: Performed By: #### C BC #### [facility] [address] [place] [address] Dr. Ashlie Hills Sodium [Moles/Vol] 141 mmol/L Normal 136-145 [facility] Comment on above: Performed By: #### C BC #### [facility] [address] [place] [address] Dr. Ashlie Hills Urea nitrogen [Mass/Vol] 17.0 mg/dL Normal 7.0-18.0 [facility] Comment on above: Performed By: #### C BC #### [facility] [address] [place] [address] Dr. Ashlie Hills UA RANDOM W/MICROSCOPICon BACTERIA NONE SEEN Normal NONE SEEN [facility] Comment on above: Performed By: #### I NFLUAB #### [facility] [address] [place] [address] Dr. Ashlie Hills Bilirubin Ql (U) Negative Normal NEGATIVE [facility] Comment on above: Performed By: #### I NFLUAB #### [facility] [address] [place] [address] Dr. Ashlie Hills CAST NONE SEEN Normal NONE SEEN [facility] Comment on above: Performed By: #### I NFLUAB #### [facility] [address] [place] [address] Dr. Ashlie Hills Clarity (U) CLEAR Normal CLEAR [facility] Comment on above: Performed By: #### I NFLUAB #### [facility] [address] [place] [address] Dr. Ashlie Hills Color (U) YELLOW Normal YELLOW [facility] Comment on above: Performed By: #### I NFLUAB #### [facility] [address] [place] [address] Dr. Ashlie Hills Crystals LM Nom (Urine sed) NONE SEEN Normal NONE SEEN [facility] Comment on above: Performed By: #### I NFLUAB #### [facility] [address] [place] [address] Dr. Ashlie Hills Epithelial cells LM Ql (Urine sed) FEW Abnormal NONE SEEN /RARE [facility] Comment on above: Performed By: #### I NFLUAB #### [facility] [address] [address] [address] Ashlie Hills Glucose Ql (U) Negative Normal NEGATIVE [facility] Comment on above: Performed By: #### I NFLUAB #### [facility] [address] [address] [address] Ashlie Hills Hemoglobin Ql (U) Negative Normal NEGATIVE [facility] Comment on above: Performed By: #### I NFLUAB #### [facility] [address] [address] [address] Ashlie Hills Ketones Ql (U) Negative Normal NEGATIVE [facility] Comment on above: Performed By: #### I NFLUAB #### [facility] [address] [place] [address] Dr. Ashlie Hills LEUKOCYTES Negative Normal NEGATIVE [facility] Comment on above: Performed By: #### I NFLUAB #### [facility] [address] [place] [address] Dr. Ashlie Hills MUCOUS NONE SEEN Normal NONE SEEN [facility] Comment on above: Performed By: #### I NFLUAB #### [facility] [address] [place] [address] Dr. Ashlie Hills Nitrite Ql (U) Negative Normal NEGATIVE [facility] Comment on above: Performed By: #### I NFLUAB #### [facility] [address] [place] [address] Dr. Ashlie Hills pH (U) 5.5 [pH] Normal 5-9 [facility] Comment on above: Performed By: #### I NFLUAB #### [facility] [address] [place] [address] Dr. Ashlie Hills RBC 0-2 Normal 0-2 [facility] Comment on above: Performed By: #### I NFLUAB #### [facility] [address] [place] [address] Dr. Ashlie Hills SPEC GRAVITY >=1.030 Abnormal 1.005-<=1.025 [facility] Comment on above: Performed By: #### I NFLUAB #### [facility] [address] [place] [address] Dr. Ashlie Hills UA PROTEIN 100 mg/dl Abnormal NEGATIVE/ TRACE [facility] Comment on above: Performed By: #### I NFLUAB #### [facility] [address] [place] [address] Dr. Ashlie Hills Urobilinogen Qn (U) 0.2 {Little'U}/dL Normal 0.2 - 1. 0 [facility] Comment on above: Performed By: #### I NFLUAB #### [facility] [address] [place] [address] Dr. Ashlie Hills WBC NONE SEEN Normal NONE SEEN [facility] Comment on above: Performed By: #### I NFLUAB #### [facility] [address] [place] [address] Dr. Ashlie Hills URIC ACID SERUMon 03-03-2022 Urate [Mass/Vol] 5.0 mg/dL Normal 2.6-6.0 [facility] Comment on above: Performed By: #### I NFLUAB #### [facility] [address] [place] [address] Dr. Ashlie Hills URINE T PROTEIN CREAT RATIOo n 03-03-2022 Protein (U) [Mass/Vol] 77.9 mg/dL Critically high <=12.0 [facility] Comment on above: Performed By: #### C VDAGS #### [facility] [address] [place] [address] Dr. Ashlie Hills UR PROT CREAT RAT 0.44 Normal [facility] Comment on above: Performed By: #### C VDAGS #### [facility] [address] [place] [address] Dr. Ashlie Hills URINE CREAT 175.15 mg/dL Normal 20.00-300.00 [facility] Comment on above: Performed By: #### C VDAGS #### [facility] [address] [place] [address] Dr. 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 Your Care Team Attending Physician - REGLA PHIPPS, Julia Joya Primary Care Physician - MCKAYLA BLAS CNP [...] A/P Where: [facility] [address], [place] [address]- [phone] Medications What How Much When Instructions Unchanged [...] Urnls Dip Stick Auto w/o Microscopy POC 37084 (02/06/2022) Bilirubin Urine Dipstick - Negative Blood Urine Dipstick - Negative Glucose Urine Dipstick - 2+ 500 mg/dl Ketones Urine Dipstick - Negative Leukocytes Urine Dipstick - Negative Nitrite Urine Dipstick - Negative Protein Urine Dipstick - 3+ (300 mg/dl) Specific [place] Urine Dipstick - >=1.030 Urine Appearance Urine [...] is caused (more content not included)... Normal [facility] Patient Educationon 02-07-20 Patient Education Obstetrics and [...] Take ove (more content not included)... Normal [facility] Urology Office/Clinic Noteon 02-06-2022 Urology Office/Clinic Note [...] of protein. Recommended pt to see a optical fabrication technician due to high protein levels in the urine. All questions/concerns were discussed. Pt to call office if she encounters any issues prior. Pt acknowledges understanding. Other obstructive and reflux uropathy (N13.8: Other obstructive and reflux uropathy) Follow-up With When Contact Information REGLA PHIPPS, Julia Joya, GEMA In 6 months [facility] [address] [place] [address] [phone] Additional Instructions: w/ repeat CT A/P Patient [...] flank pain (more content not included)... Normal [facility] Comment on above: Result Comment: Elec tronically Signed By: Julia VARGAS MD\.br\Date and Time Signed: 02/06/22 11:45 EDT\.br\Electronically Co-Signed By: Enedelia Mendoza\Luz Mariabr\Date and Time Co-Signed: 02/06/22 11:42 EDT CULTURE URINEon 12-25-2021 CULTURE URINE Culture Observations: GREATER THAN TWO ORGANISMS PRESENT, HEAVILY MIXED. PLEASE RESUBMIT CLEAN CATCH MID-STREAM URINE IF CLINICALLY INDICATED. Normal [facility] Comment on above: Performed By: #### I NFLUAB #### [facility] [address] [address] [address] Ashlie Hills CBC AUTO DIFFon 12-24-2021 BASO # 0.1 103/ul Normal 0.0-0.1 [facility] Comment on above: Performed By: #### C BC #### [facility] [address] [address] [address] Ashlie Hills Basophils/100 WBC (Bld) 0.5 % Normal 0.2-2.0 [facility] Comment on above: Performed By: #### C BC #### [facility] [address] [address] [address] Ashlie Hills EO # 0.4 103/ul Normal 0.0-0.7 [facility] Comment on above: Performed By: #### C BC #### [facility] [address] [place] [address] Dr. Ashlie Hills Eosinophils/100 WBC (Bld) 2.4 % Normal 0.9-7.0 [facility] Comment on above: Performed By: #### C BC #### [facility] [address] [place] [address] Dr. Ashlie Hills Erythrocyte distribution width (RBC) [Ratio] 14.1 % Normal 11.0-15.0 [facility] Comment on above: Performed By: #### C BC #### [facility] [address] [place] [address] Dr. Ashlie Hills Hematocrit (Bld) [Volume fraction] 55.9 % Critically high 36.0-48.0 [facility] Comment on above: Performed By: #### C BC #### [facility] [address] [place] [address] Dr. Ashlie Hills Hemoglobin (Bld) [Mass/Vol] 17.9 g/dL Critically high 12.0-16.0 [facility] Comment on above: Performed By: #### C BC #### [facility] [address] [place] [address] Dr. Ashlie Hills IG # 0.06 10e3/ul Critically high 0.00-0.03 [facility] Comment on above: Performed By: #### C BC #### [facility] [address] [place] [address] Dr. Ashlie Hills IG % 0.4 % Normal 0.0-0.5 [facility] Comment on above: Performed By: #### C BC #### [facility] [address] [place] [address] Dr. Ashlie Hills LYMPH # 5.8 103/ul Critically high 1.2-3.8 [facility] Comment on above: Performed By: #### C BC #### [facility] [address] [place] [address] Dr. Ashlie Hills Lymphocytes/100 WBC (Bld) 35.4 % Normal 20.5-60.0 [facility] Comment on above: Performed By: #### C BC #### [facility] [address] [place] [address] Dr. Ashlie Hills MANUAL DIFF REQ NO Normal [facility] Comment on above: Performed By: #### C BC #### [facility] [address] [place] [address] Dr. Ashlie Hills MCH (RBC) [Entitic mass] 29.4 pg Normal 26.7-34.0 [facility] Comment on above: Performed By: #### C BC #### [facility] [address] [place] [address] Dr. Ashlie Hills MCHC (RBC) [Mass/Vol] 32.0 g/dL Normal 29.9-35.2 [facility] Comment on above: Performed By: #### C BC #### [facility] [address] [place] [address] Dr. Ashlie Hills MCV (RBC) [Entitic vol] 91.8 fL Normal 81.0-99.0 [facility] Comment on above: Performed By: #### C BC #### [facility] [address] [place] [address] Dr. Ashlie Hills MONO # 0.8 103/ul Normal 0.3-0.8 [facility] Comment on above: Performed By: #### C BC #### [facility] [id number] Ashlie Hills Monocytes/100 WBC (Bld) 4.8 % Normal 1.7-12.0 [facility] Comment on above: Performed By: #### C BC #### [facility] [address] [address] [address] Ashlie Hills NEUT # 9.3 103/ul Critically high 1.4-6.5 [facility] Comment on above: Performed By: #### C BC #### [facility] [address] [address] [address] Ashlie Hills Neutrophils/100 WBC (Bld) 56.5 % Normal 43.0-75.0 [facility] Comment on above: Performed By: #### C BC #### [facility] [address] [place] [address] Dr. Ashlie Hills Platelet mean volume (Bld) [Entitic vol] 12.9 fL Normal 9.5-13.5 [facility] Comment on above: Performed By: #### C BC #### [facility] [address] [address] [address] Ashlie Hills PLT 127 103/ul Critically low 150-450 [facility] Comment on above: Performed By: #### C BC #### [facility] [address] [place] [address] Dr. Ashlie Hills RBC 6.09 106/ul Critically high 4.20-5.40 [facility] Comment on above: Performed By: #### C BC #### [facility] [address] [place] [address] Dr. Ashlie Hills WBC 16.4 103/ul Critically high 4.0-11.0 [facility] Comment on above: Performed By: #### C BC #### [facility] [address] [place] [address] ABD/PELVIS WO CONon [...] Severe right hip degenerative change. Normal [facility] URINE PROFILEon 2 Bilirubin Ql (U) Negative Normal NEGATIVE [facility] Comment on above: Performed By: #### Tracey LYMAN UMHARRIETRO #### [facility] [address] [address] [address] Ashlie Hills Clarity (U) CLEAR Normal CLEAR [facility] Comment on above: Performed By: #### Tracey LYMAN UMICRO #### [facility] [address] [address] [address] Ashlie Hills Color (U) DK. ORANGE Abnormal YELLOW [facility] Comment on above: Performed By: #### MADELINE DIAZRO #### [facility] [address] [place] [address] Dr. Ashlie HOBBS A micrscopic examination will be performed if indicated. Normal [facility] Comment on above: Performed By: #### PEREZ DIAZICRO #### [facility] [address] [address] [address] Ashlie Hills Glucose Ql (U) 250 mg/dl Abnormal NEGATIVE [facility] Comment on above: Performed By: #### MADELINE DIAZRO #### [facility] [address] [place] [address] Dr. Ashlie Hills Hemoglobin Ql (U) Negative Normal NEGATIVE [facility] Comment on above: Performed By: #### MADELINE DIAZRO #### [facility] [address] [address] [address] Ashlie Hills Ketones Ql (U) Negative Normal NEGATIVE [facility] Comment on above: Performed By: #### MADELINE DIAZRO #### [facility] [address] [place] [address] Dr. Ashlie Hills LEUKOCYTES Negative Normal NEGATIVE [facility] Comment on above: Performed By: #### Tracey LYMAN UMICRO #### [facility] [address] [address] [address] Ashlie Hills Nitrite Ql (U) Negative Normal NEGATIVE [facility] Comment on above: Performed By: #### Tracey LYMAN UMICRO #### [facility] [address] [place] [address] Dr. Ashlie Hills pH (U) 5.0 [pH] Normal 5-9 [facility] Comment on above: Performed By: #### MADELINE DIAZRO #### [facility] [address] [place] [address] Dr. Ashlie Hills Protein (U) [Mass/Vol] 100 mg/dL Abnormal NEGATIVE/ TRACE [facility] Comment on above: Performed By: #### PEREZ DIAZICRO #### [facility] [address] [place] [address] Dr. Ashlie Hills SPEC GRAVITY >=1.030 Abnormal 1.005-<=1.025 [facility] Comment on above: Performed By: #### MADELINE DIAZRO #### [facility] [address] [place] [address] Dr. Ashlie Hills UR MICRO IND INDICATED Normal [facility] Comment on above: Performed By: #### Tracey LYMAN UMICRO #### [facility] [address] [place] [address] Dr. Ashlie Hills Urobilinogen Qn (U) 1.0 {Little'U}/dL Normal 0.2 - 1. 0 [facility] Comment on above: Performed By: #### MADELINE DIAZRO #### [facility] [address] [place] [address] Dr. Ashlie Hills PROF CHEM 8 (BAS METB)on Anion gap [Moles/Vol] 12.1 mmol/L Normal [facility] Comment on above: Performed By: #### I NFLUAB #### [facility] [address] [place] [address] Dr. Ashlie Hills Calcium [Mass/Vol] 9.0 mg/dL Normal 8.5-10.[address] [facility] Comment on above: Performed By: #### I NFLUAB #### [facility] [address] [address] [address] Ashlie Hills Chloride [Moles/Vol] 101 mmol/L Normal 98-107 [facility] Comment on above: Performed By: #### I NFLUAB #### [facility] [address] [address] [address] Ashlie Hills CO2 [Moles/Vol] 29.1 mmol/L Normal 21.0-32.0 [facility] Comment on above: Performed By: #### I NFLUAB #### [facility] [address] [address] [address] Ashlie Hills Creatinine [Mass/Vol] 0.86 mg/dL Normal 0.55-1.02 [facility] Comment on above: Performed By: #### I NFLUAB #### [facility] [address] [address] [address] Ashlie Hills EGFR-AF MONEGASQUE >60 Normal >=60 [facility] Comment on above: Performed By: #### I NFLUAB #### [facility] [address] [place] [address] Dr. Ashlie Hills EGFR-NON AF MONEGASQUE >60 Normal >=60 [facility] Comment on above: Performed By: #### I NFLUAB #### [facility] [address] [address] [address] Ashlie Hills Glucose [Mass/Vol] 236 mg/dL Critically high 74-106 [facility] Comment on above: Performed By: #### I NFLUAB #### [facility] [address] [address] [address] Ashlie Hills Potassium [Moles/Vol] 4.2 mmol/L Normal 3.5-5.1 [facility] Comment on above: Performed By: #### I NFLUAB #### [facility] [address] [address] [address] Ashlie Hills Sodium [Moles/Vol] 138 mmol/L Normal 136-[address] [facility] Comment on above: Performed By: #### I NFLUAB #### [facility] [address] [address] [address] Ashlie Hills Urea nitrogen [Mass/Vol] 11.0 mg/dL Normal 7.0-18.0 [facility] Comment on above: Performed By: #### I NFLUAB #### [facility] [address] [place] [address] Dr. Ashlie Hills Urea nitrogen/Creatinine [Mass ratio] 12.8 mg/mg Normal [facility] Comment on above: Performed By: #### I NFLUAB #### [facility] [address] [place] [address] Dr. Ashlie Hills URINE MICROSCOPIC ONLYon BACTERIA SMALL Abnormal NONE SEEN [facility] Comment on above: Performed By: #### Tracey LYMAN UMICRO #### [facility] [address] [place] [address] Dr. Ashlie Hills Bacteria identified Cx Nom (U) INDICATED Normal [facility] Comment on above: Performed By: #### Tracey LYMAN UMICRO #### [facility] [address] [place] [address] Dr. Ashlie Hills CAST NONE SEEN Normal NONE SEEN [facility] Comment on above: Performed By: #### Tracey LYMAN UMICRO #### [facility] [address] [place] [address] Dr. Ashlie Hills Crystals LM Nom (Urine sed) NONE SEEN Normal NONE SEEN [facility] Comment on above: Performed By: #### Tracey LYMAN UMICRO #### [facility] [address] [place] [address] Dr. Ashlie Hills Epithelial cells LM Ql (Urine sed) MODERATE Abnormal NONE SEEN /RARE [facility] Comment on above: Performed By: #### Tracey LYMAN UMICRO #### [facility] [address] [place] [address] Dr. Ashlie Hills MUCOUS NONE SEEN Normal NONE SEEN [facility] Comment on above: Performed By: #### Tracey LYMAN UMICRO #### [facility] [address] [place] [address] Dr. Ashlie Hills RBC 0-2 Normal 0-2 [facility] Comment on above: Performed By: #### E RUR, UMICRO #### [facility] [address] [address] [address] Ashlie Hills WBC 0-2 Abnormal NONE SEEN [facility] Comment on above: Performed By: #### E RUR, UMICRO #### [facility] [address] [address] [address] Ashlie Hills YEAST PRESENT Abnormal NONE SEEN [facility] Comment on above: Performed By: #### E RUR, UMICRO #### [facility] [address] [address] [address] Ashlie Hills HIP RIGHT 1 OR 2 VWS WITH PE LVISon 07-20-2020 HIP RIGHT 1 OR 2 VWS WITH PELVIS [facility] Department of Radiology [address] [place] [id number] Patient Name: MITZI MACIAS : 1970 [...] MRI. Electronically signed: Pipo Acevedo. Transcribed by: [email or web address], User Resident: Electronically Signed by: IPPO ACEVEDO @ 07/20/2020 03:45 PM Normal [facility] Comment on above: Order Comment: evalu ate Vital Signs Date Time Vital Sign Value Performing Clinician Facility 03-08-2022 15:00-0400 Body height 170.18 cm Stephanie Tico Other [facility] Other 03-08-2022 15:00-0400 Body temperature 97.6 [degF] Stephanie Tico Other [employer] Other 03-08-2022 15:00-0400 Diastolic blood pressure 72 mm[Hg] Stephanie Tico Other [employer] Other 03-08-2022 15:00-0400 Respiratory rate 20 /min Stephanie Tico Other [employer] Other 03-08-2022 15:00-0400 SaO2% (BldA) [Mass fraction] 91 % Stephanie Tico Other [employer] Other 03-08-2022 15:00-0400 Systolic blood pressure 131 mm[Hg] Stephanie Tico Other [employer] Other 02-20-2022 09:20-0400 Body height 170.18 cm Stephanie Tico Other [employer] Other 02-20-2022 09:20-0400 Body temperature 96.5 [degF] Stephanie Tico Other [employer] Other 02-20-2022 09:20-0400 Diastolic blood pressure 69 mm[Hg] Stephanie Tico Other [employer] Other 02-20-2022 09:20-0400 Respiratory rate 20 /min Stephanie Tico Other [employer] Other 02-20-2022 09:20-0400 SaO2% (BldA) [Mass fraction] 91 % Stephanie Tico Other [employer] Other 02-20-2022 09:20-0400 Systolic blood pressure 129 mm[Hg] Stephanie Tico Other [employer] Other 02-06-2022 10:24-0400 Blood Pressure Location Julia Spreaker [facility] 02-06-2022 10:24-0400 Diastolic blood pressure 76 mm[Hg] Julia VARGAS [facility] 02-06-2022 10:24-0400 Heart rate 70 /min Julia VARGAS [facility] 02-06-2022 10:24-0400 Respiratory rate 16 /min Julia VARGAS [facility] 02-06-2022 10:24-0400 Systolic blood pressure 134 mm[Hg] Julia VARGAS [facility] En[facility]ters Encounter Date Encounter Type Care Provider Facility Start: 04-22-2024 ambulatory GAVIOTA Maysi ty:SHEA Villalobos Start: 08-17-[address] [employer] SUPERVISOR Work Phone: [facility] Comment on above: Vaginal yeast infect ion (Primary Dx) Start: 08-14-[address] [employer] SERVIC[employer] SUPERVISOR Work Phone: [facility] Comment on above: Type 2 diabetes asiya itus with unspecified complications (CMS/[facility]); Edema, unspecified; Edema Start: 07-10-2023 End: 07-10-2023 ambulatory MCKAYLA AICHHOLZ Not Available Start: 12-05-2022 ambulatory MATEUSZ POSADA . Facility:[facility] Start: 12-05-2022 End: 12-06-2022 Evaluation and management of inpatient UMBERTO HEALYP . Facility:[facility] Start: 11-23-2022 End: 11-23-2022 ambulatory MULTIMEDIA AUTHOR MCKAYLA AICHHOLZ Facility:[facility] Start: 11-22-2022 End: 11-23-2022 ambulatory MULTIMEDIA AUTHOR MCKAYLA AICHHOLZ Facility:[facility] Start: 11-17-2022 End: 11-18-2022 ambulatory SUBHASH GASPAR . Facility:[facility] Start: 11-15-2022 End: 11-16-2022 ambulatory GAVIOTA VEGA Facility:[facility] [place] Start: 11-15-2022 End: 11-15-2022 Patient encounter procedure GAVIOTA VEGA [facility] Start: 10-05-2022 End: 10-05-2022 ambulatory MARIANO DIAB . Facility:[facility] Start: 09-21-2022 End: 09-21-2022 ambulatory MULTIMEDIA AUTHOR MCKAYLA AICHHOLZ Facility:[facility]1 Start: 09-14-2022 ambulatory RAFAEL GONGORA Facilit y:[facility]1 Start: 08-24-2022 End: [address] CHAPARRO MORTENSEN . Facility:[facility] Start: 08-21-2022 End: 08-22-2022 [facility] Start: 07-27-2022 End: 07-28-2022 ambulatory CECILIA SILVESTRETray . Facility:[facility] Start: 07-18-2022 End: 07-19-2022 ambulatory CECILIA SILVESTRETray . Facility:[facility] Start: 07-18-2022 End: 07-19-2022 ambulatory [facility] Facility[facility] Start: 07-06-2022 End: 07-06-2022 ambulatory MULTIMEDIA AUTHOR MCKAYLA BLAS Facility:[facility] Start: 05-11-2022 End: 05-12-2022 ambulatory GIL VALENZUELA . Facility:[facility] Start: 04-25-2022 End: 04-25-[address] CHAPARRO MORTENSEN . Facility:[facility] Start: 04-20-2022 End: 04-21-2022 ambulatory GIL VALENZUELA . Facility:[facility] Start: 03-08-2022 End: 03-08-2022 ambulatory Stephanie Tico Other [employer] 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 Other Start: 02-20-2022 Office outpatient ne w 45 minutes Stephanie Tico [facility] Start: 02-06-2022 ambulatory GAVIOTA VEGA Facility :[facility] [place] Start: 02-06-2022 End: 02-07-2022 ambulatory MCKAYLA BLAS Facility:[facility] [place] Start: 02-06-2022 End: 02-06-2022 Patient encounter procedure Julia VARGAS [facility] Start: 01-19-2022 End: 01-20-2022 ambulatory GIL VALENZUELA . Facility:[facility] Start: 01-05-2022 ambulatory GAVIOTA VEGA Facility :[facility] Start: 12-24-2021 End: 12-24-2021 ambulatory OLE RAMIREZ Facility: Start: 08-26-2020 End: 09-10-2020 Patient encounter procedure MARY TAVERAS Facility:[facility] Start: 10-30-2019 End: 10-30-2019 Emergency department patient visit JAMES Reis [facility] Start: 10-30-2019 End: 10-30-2019 Emergency department patient visit James Desouza [facility] Start: 11-02-2016 Preoperative state Stephanie Tico Other [employer] 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 Work Phone: Start: 10-08-2015 Microscopic observat ion [Identifier] in Cervix by Cyto stain Mckayla Blas NP Work Phone: H/O: hysterectomy Julia LARA Laparoscopic cholecystectomy Julia VARGAS Operative procedure on foot Julia VARGAS Plan of Treatment Date Care Activity Detail Author Start: 08-03-2025 Screening for malign ant neoplasm of colon [facility] Start: 11-24-2023 Urine screening for protein Diabetes: Urine Protein Screening [facility] Start: 11-23-2023 Screening for malign ant neoplasm of breast Mammogram [facility] Start: 10-15-2023 End: 10-15-2023 Patient encounter procedure 10/15/2023 4:30 PM EDT Office Visit [facility] [address] [place] [id number] Mckayla Blas NP [address] [place] [address] [facility] Start: 08-09-2023 Hemoglobin A1c measurement Diabetes: Hemoglobin A1C [facility] Start: 05-27-2021 Glaucoma screening Diabetes: R etinopathy Screening [facility] Start: 03-09-2020 Influenza vaccination Flu vacc ine (Season Ended) [place], [place] Start: 10-07-2018 Screening for malign ant neoplasm of cervix [facility] Start: 2010 Lipid panel Lipid screen [place], [place] Start: 2000 Screening for malign ant neoplasm of cervix HPV/Cotest [facility] Start: 1991 Screening for malign ant neoplasm of cervix Cervical cancer screen [place], [place] Start: 1989 DTaP/Tdap/Td vaccine (1 - Tdap) DTaP/Tdap/Td vaccine ( - Tdap) [place], [place] Start: 1985 [facility] [place] [place] Start: 1970 Medicare Annual Well ness (AWV) Medicare Annual Wellness (AWV) [facility] Start: 1970 Screening for malign ant neoplasm of colon [facility] Immunizations Immunization Date Immunization Notes Care Provider Fa [facility] 05-18-2023 influenza, injectabl e, quadrivalent, contains preservative Mckayla Blas NP Work Phone: [facility] 07-19-2021 SARS-CoV-2 (COVID-19 ) mRNA BNT-162b2 vax [employer] [facility] 10-28-2020 SARS-CoV-2 (COVID-19 ) mRNA BNT-162b2 vax [employer] [facility] 10-08-2020 SARS-CoV-2 (COVID-19 ) mRNA BNT-162b2 vax [employer] [facility] Payers Date Payer Category Payer Medicaid MEDICAID [facility] [id number] 2018-Present [phone] [address] [place] [address] Medicaid [id number] 2017 Medicare [employer] MEDICARE UHC DUAL COMPLETE [id number] 2017-Present [address] [place] [address] [id number] 1970 Unknown [id number] 2.16.840.1.291745.3.579.2. 647 1970 Unknown [id number] 2.16.840.1.182725.3.579.2. 727 1970 Unknown [id number] 2.16.840.1.480969.3.579.2. 727 1970 Unknown [id number] 2.16.840.1.038981.3.579.2. 727 1970 Unknown [id number] 2.16.840.1.351852.3.579.2. 727 1970 Unknown [id number] 2.16.840.1.362330.3.579.2. 593 1970 Unknown [id number] 2.16.840.1.874429.3.579.2. 593 1970 Unknown [id number] 2.16.840.1.252793.3.579.2. 593 1970 Unknown [id number] 2.16.840.1.125964.3.579.2. 593 1970 Unknown [id number] 2.16.840.1.478174.3.579.2. 593 1970 Unknown [id number] 2.16.840.1.504508.3.579.2. 593 1970 Unknown [id number] 2.16.840.1.223542.3.579.2. 593 1970 Unknown [id number] 2.16.840.1.643380.3.579.2. 593 1970 Unknown [id number] 2.16.840.1.968142.3.579.2. 593 1970 Unknown [id number] 2.16.840.1.140163.3.579.2. 593 1970 Unknown [id number] 2.16.840.1.703289.3.579.2. 593 1970 Unknown [id number] 2.16.840.1.972318.3.579.2. 593 1970 Unknown [id number] 2.16.840.1.740354.3.579.2. 593 1970 Unknown [id number] 2.16.840.1.491557.3.579.2. 593 1970 Unknown [id number] 2.16.840.1.671043.3.579.2. 593 1970 Unknown [id number] 2.16.840.1.676535.3.579.2. 593 1970 Unknown [id number] 2.16.840.1.561140.3.579.2. 593 1970 Unknown [id number] 2.16.840.1.098302.3.579.2. 593 1970 Unknown [id number] 2.16.840.1.384637.3.579.2. 593 1970 Unknown [id number] 2.16.840.1.047748.3.579.2. 593 1970 Unknown [id number] 2.16.840.1.563536.3.579.2. 593 1970 Unknown [id number] 2.16.840.1.982016.3.579.2. 593 1970 Unknown [id number] 2.16.840.1.329867.3.579.2. 1259 1959 Medicaid [id number] 1959 Private Health Insurance [id number] 1959 Unknown [id number] 2.16.840.1.491918.19 Social History Date Type Detail Facility Start: 02-17-2014 End: 07-10-2023 Tobacco smoking status NHIS Current every day smoker [place], [place] Start: 02-17-1994 History of tobacco use Cigarette Smo ker [place], [place] Start: 02-17-2014 End: 07-10-2023 Cigarettes smoked current (pack per day) - Reported [place], [place] Start: 02-17-2014 Alcohol intake Current drinke r of alcohol (finding) [place] Start: 02-17-2014 Alcohol Comment Rare [facility] [place], [place] Start: 1970 Sex Assigned At Not on file [place] Exposure to SARS-CoV -2 (event) Unable to assess [place], [place] Start: 02-06-2022 Tobacco smoking status Smoker (findi ng) [facility] Start: 07-10-2023 Sex Assigned At Female [facility] Start: 11-15-2022 Tobacco smoking status Heavy t obacco smoker (finding) [facility] Start: 07-10-2023 Tobacco use and exposure Smoke less tobacco non-user [facility] Start: 07-10-2023 Alcohol intake Lifetime non-d adrien (finding) [facility] Within the last year , have you been afraid of your partner or ex-partner? No [facility] Do you belong to any clubs or organizations such as restorationism groups, unions, fraternal or athletic groups, or [...] (one) time each day. Use as instructed [id number] Functional Status Date Assessment Result Facility 11-15-2022 Functional Status N/A [facility] 02-06-2022 Functional Status N/A [facility] Clinical Notes 01-19-2022 to 11-15-2022 Note Date [...] include: ?8 oz (237 mL) of milk, sqqdlrp-mlylupftcimr-xtvba milk, and calcium-fortifiedfruit juice. Calcium-fortified means that [...] ?Spinach (cooked), rhubarb, beets, sweet potatoes, and Kazakh chard. ?Peanuts. ?Potato chips, cameroonian fries, and baked potatoes with skin on. ?Nuts and nut products. ?Chocolate. If you regularly take a diuretic medicine, make sure to eat at least 1 or 2 servings of fruits or vegetables that are high in potassium each day. These include: ?Avocado. ?Banana. ?Alden, prune, carrot, or tomato juice. ?Baked potato. [...] magnesium, fish oil, or vitamin B6. Take tquw-yvs-zyyewre and prescription medicines only as told by [...] Casseroles. Pizza. Lasagna. Frozen meals. Potato chips. Pashto fries. The items listed above may not [...] provider. Document Revised: 03/06/2022 Document Reviewed: 03/06/2022 [employer] Patient Education 2022 [employer]. Follow Up Care 02/06/2022 11:44:09 With:GAVIOTA VEGA PA-C, URL Address: [facility] [place] [address] When: Unknown [facility] 08-24-2022 Note CONSULTATION CONSULTATION DATE: 08/24/2022 [...] We maintain her on pain medication with Mellott 5/325 t.i.d., diclofenac 75 mg b.i.d. Her [...] her at this point. A refill for Mellott 5/325 t.i.d. and diclofenac 75 mg b.i.d. will be sent to the pharmacy. Vitamin compliance and nutrition were discussed and enforced. I did highly encourage her to use exercise bands to increase the strength in her lower extremities. We will see her in three months' time, unless otherwise indicated, and patient agrees. [facility] 05-11-2022 Note CONSULTATION CONSULTATION DATE: 05/11/2022 [...] 150. Medications include Lyrica 300 mg b.i.d., Mellott 5/325 t.i.d., diclofenac 75 mg b.i.d. and [...] her medications today. We will maintain Lyrica, Mellott and diclofenac at the set dose and frequency. We will follow-up in the clinic in three months' time. The patient is in agreement to this. Vitamin importance and nutrition were discussed. [facility] 04-20-2022 Note CONSULTATION CONSULTATION DATE: 04/20/2022 [...] medications include Tylenol, Lyrica 300 mg b.i.d., Mellott 5/325 t.i.d., amitriptyline, diclofenac and duloxetine. Patient's [...] be followed up in the clinic. [facility] 03-08-2022 Evaluation note Encounter Date Diagnosis [...] to the DANIEL. Thrombocytopenia is unclear etiology. [employer] Other 08-15-2022 Evaluation note* Encounter Date Diagnosis [...] follow with Dr. Souza and Dr. Vargas. [employer] Other 08-01-2022 Hospital Discharge instructions Patient Education [...] fried and sweet foods. General instructions Take epvi-fyf-reylcbg and prescription medicines only as told by [...] 04/21/2010 Document Revised: 10/16/2019 Document Reviewed: 07/11/2018 [employer] Patient Education 2020 [employer]. Follow Up Care 01/05/2022 12:02:03 With:REGLA PHIPPS, Julia Joya, URL Address: [facility] [address] [place] [address] [phone] When:Within 6 Month(s) Comments:w/ repeat CT A/P [facility] [place] 07-14-2022 NoteCONSULTATION PROCEDURE DATE: 01/19/2022 PRE AND [...] the patient tolerated it well. [facility] Signed and Approved by: GIL VALENZUELA . 01/27/2022 14:15:00[facility]07-14-2022 NoteCONSULTATION CONSULTATION DATE: 01/19/2022 This is [...] today. Medications include Lyrica 300 mg b.i.d., Mellott 5/325 t.i.d., diclofenac 75 mg b.i.d. and [...] months' time unless otherwise indicated. [facility] Signed and Approved by: GIL VALENZUELA . 01/27/2022 14:15:00[facility] HospitalEvaluation + Plan note Future Appointments Appointment Date:08/14/2022 09:15:00 AM Scheduled Provider:Julia VARGAS MD Location:[facility] Appointment Type:URO Office Visit [facility] evaluation + Plan note Future Appointments Appointment Date:04/22/2024 10:00:00 AM Scheduled Provider:GAVIOTA VEGA PA-C Location:[facility] Appointment Type:URO Office Visit [facility] evaluation note* Diagnosis Type 2 diabetes mellitus with unspecified complications (CMS/[facility]) Edema, unspecified Edema documented in this encounter [...] History sepsis 2011 Hospitalization History SEE ABOVE [employer] Other Hospital course Narrative No data available for this section [facility] progress note No data available for this section [facility] reason for referral (narrative) , Referral to Dr. Cortés Referred by: Julia VARGAS MD [facility] Advance Directives Documents on File Type Date Recorded Patient Apartment Maintenance Expl anation Advance Directives and Living Will Power of Raw Stock Machine Feeder Summary Purpose Family History No Family History Records FoundNo Family History Records FoundNo Family History Records FoundNo Family History Records FoundNo Family History Records Found Additional Source Comments INFORMATION SOURCE (unrecogn ized section and content) DATE CREATED AUTHOR 10/30/2019 [facility] DATE CREATED AUTHOR AUTHOR'S ORGANIZ ATION 09/15/2020 [facility] DATE CREATED AUTHOR AUTHOR'S ORGANIZ ATION 11/16/2022 [facility] DATE CREATED AUTHOR AUTHOR'S ORGANIZ ATION 12/19/2022 [facility] DATE CREATED AUTHOR AUTHOR'S ORGANIZ ATION 07/11/2023 [facility] EPIC Care Team (unrecognized sect ion and content) Theology Professor Relationship Specialty Start Date End Date Ty Amin MD PCP - General Family Medicine 01/05/23 Theology Professor Relationship Specialty Start Date End Date Ty [...] BE BASED ON THE PRIMARY CLINICAL RECORDS. [employer] provides no warranty or guarantee of the accuracy or completeness of information in this document.
[2023-08-31 20:56] LABS: PROCALCITONIN 0.81 ng/mL (0.00-0.50)
[2023-08-31] MEDS: ENOXAPARIN SODIUM 40 MG/0.4 ML SYRINGE SUBQ (21:31)
[2023-08-31] MEDS: 0.9 % SODIUM CHLORIDE 1,000 ML 126 ML IV (21:31)
[2023-08-31] MEDS: INSULIN ASPART 300 UNIT/3 ML PEN SUBQ (21:32)
[2023-08-31 22:22] LABS: Lactate/Lactic Acid 1.3 mmol/L (0.4-2.0)
[2023-09-01] VITALS (21 sets, daily range): BP systolic 117–147; BP diastolic 55–86; PULSE 78–98; RESP 10–18; TEMP 36.4–36.8; O2SAT 89–95
[2023-09-01] MEDS: PIPERACILLIN SODIUM/TAZOBACTAM 3.375 GM in 0.9 % SODIUM CHLORIDE 50 ML IV ×3 (03:18→22:46)
[2023-09-01] MEDS: 0.9 % SODIUM CHLORIDE 1,000 ML 126 ML IV (03:18)
[2023-09-01] MEDS: IPRATROPIUM/ALBUTEROL SULFATE 3 ML AMPUL.NEB IH ×3 (04:23→21:12)
[2023-09-01 04:43] LABS: Basophils Absolute Auto 0.1 10^3/uL (0.0-0.1); Basophils Percent Auto 0.2 % (0.2-2.0); Hematocrit 49.2 % (36.0-48.0); Hemoglobin 15.1 g/dL (12.0-16.0); Immature Granulocytes Abs Auto 0.19 10^3/uL (0.00-0.03); Immature Granulocytes Pct Auto 0.9 % (0.0-0.5); Lymphocytes Percent Auto 4.9 % (20.5-60.0); Mean Corpuscular HGB Conc 30.7 g/dL (29.9-35.2); Mean Corpuscular Hemoglobin 28.8 pg (26.7-34.0); Mean Corpuscular Volume 93.7 fL (81.0-99.0); Mean Platelet Volume 13.1 fL (9.5-13.5); Monocytes Absolute Auto 0.2 10^3/uL (0.3-0.8); Monocytes Percent Auto 1.2 % (1.7-12.0); Neutrophils Absolute Auto 19.3 10^3/uL (1.4-6.5); Neutrophils Percent Auto 92.8 % (43.0-75.0); Platelet Count 107 10^3/uL (150-450); Red Blood Count 5.25 10^6/uL (4.20-5.40); Red Cell Distribution Width 14.5 % (11.0-15.0); White Blood Count 20.8 10^3/uL (4.0-11.0)
[2023-09-01 05:07] LABS: Alanine Aminotransferase 15 U/L (14-59); Albumin Globulin Ratio 0.5; Albumin Level 2.3 g/dL (3.4-5.0); Alkaline Phosphatase 64 U/L (46-116); Anion Gap 11.6; Aspartate Amino Transferase 15 U/L (15-37); BUN Creatinine Ratio 21.2; Bilirubin Total 0.5 mg/dL (0.2-1.0); Calcium 8.4 mg/dL (8.5-10.1); Carbon Dioxide 25.6 mmol/L (21.0-32.0); Chloride 102 mmol/L (98-107); Estimated GFR (African America >60 (>=60); Estimated GFR (Non-African Ame >60 (>=60); Globulin 4.2 g/dL; Glucose 426 mg/dL (74-106); Potassium 4.2 mmol/L (3.5-5.1); Sodium 135 mmol/L (136-145); Total Protein 6.5 g/dL (6.4-8.2)
[2023-09-01 06:15] LABS: A. calcoaceticus-baumannii Cpx NOT DETECTED (NOT DETECTE); Bacteroides fragilis NOT DETECTED (NOT DETECTE); Candida albicans NOT DETECTED (NOT DETECTE); Candida auris NOT DETECTED (NOT DETECTE); Candida glabrata NOT DETECTED (NOT DETECTE); Candida krusei NOT DETECTED (NOT DETECTE); Candida parapsilosis NOT DETECTED (NOT DETECTE); Candida tropicalis NOT DETECTED (NOT DETECTE); Cryptococcus neoformans/gattii NOT DETECTED (NOT DETECTE); Enterobacter cloacae complex NOT DETECTED (NOT DETECTE); Enterobacterales NOT DETECTED (NOT DETECTE); Enterococcus faecalis NOT DETECTED (NOT DETECTE); Enterococcus faecium NOT DETECTED (NOT DETECTE); Haemophilus influenzae NOT DETECTED (NOT DETECTE); Klebsiella aerogenes NOT DETECTED (NOT DETECTE); Klebsiella pneumoniae group NOT DETECTED (NOT DETECTE); Listeria monocytogenes NOT DETECTED (NOT DETECTE); Neisseria meningitidis NOT DETECTED (NOT DETECTE); Proteus spp. NOT DETECTED (NOT DETECTE); Pseudomonas aeruginosa NOT DETECTED (NOT DETECTE); Salmonella spp. NOT DETECTED (NOT DETECTE); Serratia marcescens NOT DETECTED (NOT DETECTE); Staphylococcus epidermidis NOT DETECTED (NOT DETECTE); Staphylococcus lugdunensis NOT DETECTED (NOT DETECTE); Staphylococcus spp. NOT DETECTED (NOT DETECTE); Stenotrophomonas maltophilia NOT DETECTED (NOT DETECTE); Streptococcus pneumoniae NOT DETECTED (NOT DETECTE); Streptococcus pyogenes NOT DETECTED (NOT DETECTE)
[2023-09-01 07:50] LABS: Streptococcus agalactiae DETECTED (NOT DETECTE); Streptococcus spp. DETECTED (NOT DETECTE)
[2023-09-01 07:51] LABS: Glucometer 352 mg/dL (74-106)
[2023-09-01 07:52] LABS: Source BLOOD
[2023-09-01] MEDS: INSULIN ASPART 300 UNIT/3 ML PEN SUBQ ×4 (07:52→21:17)
--- NOTE | 2023-09-01 08:07 | P.HP_ITS ---
H&P: HPI History of Present Illness Chief complaint: Shortness of Breath, Severe Sepsis Narrative: patient is a 53-year-old morbidly obese female with past medical history of severe chronic obstructive pulmonary disease requiring oxygen therapy,obstructive sleep apnea and noncompliant with BiPAP, insulin-dependent type 2 diabetes, hypertension, GERD, diabetic neuropathy and depression. is also present at bedside during the time of admission exam. Patient states that yesterday they did grocery shopping came home and she felt very weak. She was in the restroom trying to change her clothes and she could not get her clothes on. She states that she also became short short of breath and they placed her 2 L nasal cannula that she has at home on. She had also been having some chills and fatigue, and runny nose. She says she coughs at baseline and nothing out of her ordinary. She also noted that her fever started to climb and was approximately one hundred and three. Her called EMS and she was brought to the emergency room. Viral panel was negative.chest CTA was performed which showed no pulmonary embolus and possible inflammatory processes and left lung. Due to elevated white blood cell count of twenty-two, elevated lactate levelof 2.4, fever,tachycardia Emergency Room initiated sepsis protocol patient was given IV fluid boluses, and lactate improved and is normal this morning at 1.3. White blood cell count has also decreased from 20-20. Patient was also started on broad-spectrum antibiotics of vancomycin and Zosyn for her sepsis. Blood cultures were obtained along with sputum culture and urine culture. Patient was admitted for chronic obstructive pulmonary disease exacerbation, possible pneumonia and sepsis. Review of Systems ROS Narrative ROS: a complete review of systems were reviewed with patient and are positive as below or listed in History of Chief Complaint. General: fever, chills,sweats Head: no headache, trauma, visual changes, nausea or vomiting Skin: no reported rashes, itching or sores Eyes: no blurriness of vision Ears: no reported hearing loss, vertigo, earache, or tinnitus Throat: no sore throat, hoarseness, swelling of neck, or tongue pain Heart: no chest pain Lungs: shortness of breath , dry cough GI: no diarrhea or vomiting/nausea Urinary: no urinary urgency, frequency or pain Neuro: no numbness or tingling HEM: no bleeding issues or bruising ENDO: no thyroid problems Psych: no anxiety or depression PFSH PFSH Medical History Amputation toe ?S98.139A - Complete traumatic amputation of one unspecified lesser toe, initial encounter (ICD-10) Neuropathy ?G62.9 - Polyneuropathy, unspecified (ICD-10) Acid reflux ?K21.9 - Gastro-esophageal reflux disease without esophagitis (ICD-10) Diabetes ?E11.9 - Type 2 diabetes mellitus without complications (ICD-10) COPD (chronic obstructive pulmonary disease) ?J44.9 - Chronic obstructive pulmonary disease, unspecified (ICD-10) Asthma ?J45.909 - Unspecified asthma, uncomplicated (ICD-10) High cholesterol ?E78.00 - Pure hypercholesterolemia, unspecified (ICD-10) Surgical History History of hammertoe correction ?Z98.890 - Other specified postprocedural states (ICD-10) ?Z87.39 - Personal history of other diseases of the musculoskeletal system and connective tissue (ICD-10) Hx of cholecystectomy ?Z90.49 - Acquired absence of other specified parts of digestive tract (ICD- 10) History of hysterectomy ?Z90.710 - Acquired absence of both cervix and uterus (ICD-10) Social History Smoking status: Current some day smoker Meds Home Medications and Allergies Home Medications Medication Instructions Recorded Confirmed Type acetaminophen 500 mg capsule 1,000 mg PO Q6H PRN fever or pain 03/20/23 09/01/23 History amitriptyline 25 mg tablet 25 mg PO DAILY 03/20/23 08/31/23 History aspirin 81 mg tablet,delayed 81 mg PO DAILY 03/20/23 08/31/23 History release (Adult Aspirin Regimen) budesonide-formoterol HFA 160 2 inh inhalation BID 03/20/23 08/31/23 History mcg-4.5 mcg/actuation aerosol inhaler (Symbicort) diclofenac sodium 75 mg 75 mg PO BID 03/20/23 08/31/23 History tablet,delayed release dulaglutide 3 mg/0.5 mL 3 mg subcut QWEEK 03/20/23 08/31/23 History subcutaneous pen injector (Trulicity) furosemide 40 mg tablet 40 mg PO DAILY 03/20/23 08/31/23 History insulin aspart U-100 100 unit/mL 1 sliding scale dose subcut 03/20/23 08/31/23 History (3 mL) subcutaneous pen (Novolog USEASDIRECTD FlexPen U-100 Insulin aspart) insulin glargine 100 unit/mL 58 unit subcut BID 03/20/23 08/31/23 History subcutaneous solution (Lantus U-100 Insulin) lisinopril 20 mg tablet 20 mg PO DAILY 03/20/23 08/31/23 History omeprazole 20 mg capsule,delayed 20 mg PO DAILY 03/20/23 08/31/23 History release pregabalin 300 mg capsule 300 mg PO Q12H 03/20/23 08/31/23 History tiotropium bromide 2.5 2 inh inhalation DAILY 03/20/23 08/31/23 History mcg/actuation mist for inhalation (Spiriva Respimat) duloxetine 60 mg capsule,delayed 60 mg PO BID #60 caps 04/05/23 08/31/23 Rx release hydrocodone 5 mg-acetaminophen 325 1 tab PO TID PRN pain #90 tabs 06/04/23 08/31/23 Rx mg tablet Allergies Allergy/AdvReac Type Severity Reaction Status Date / Time No Known Drug Allergies Allergy Verified 08/14/23 09:37 Exam Narrative Exam Narrative: General: Patient is alert, and oriented to person, place and time with normal affect, morbid obesity Skin: stasis dermatitis bilateral lower extremities Head: atraumatic, acephalic Eyes: PERRLA, no nystagmus present, conjunctiva clear, no scleral icterus Ears: normal gross auditory acuity Nose: symmetric, no discharge, no maxillary or frontal sinus tenderness Mouth/Throat: no erythema, exudate, or tonsillar enlargement, normal dentition Neck: no masses palpated, normal thyroid Heart: Normal rate and rhythm, no murmurs/rubs/gallops Lungs: no audible wheezes, crackles and diminished breath sounds all lung smith Abdomen: Normal audible bowel sounds, no distension, No palpable masses, no organomegaly, no rebound/guarding/ or rigidity Musculoskeletal: +1 swelling bilateral lower extremities Neuro: CN II-X grossly intact Constitutional Vital Signs, click to edit/add: Last Vital Signs Temp 98.2 F 09/01/23 05:20 Pulse 87 09/01/23 07:48 Resp 14 09/01/23 05:20 BP 147/86 H 09/01/23 05:20 Pulse Ox 89 L 09/01/23 07:48 O2 Del Method Nasal Cannula 09/01/23 05:20 O2 Flow Rate 2 09/01/23 05:20 Results Labs Labs: Short CBC 08/31/23 09/01/23 Range/Units 18:12 04:11 WBC 22.3 H 20.8 H (4.0-11.0) 10^3/uL Hgb 16.4 H 15.1 (12.0-16.0) g/dL Hct 51.6 H 49.2 H (36.0-48.0) % Plt Count 148 L 107 L (150-450) 10^3/uL BMP 08/31/23 09/01/23 18:49 04:11 Sodium 131 L 135 L Potassium 3.8 4.2 Chloride 97 L 102 Carbon Dioxide 28.9 25.6 BUN 14.0 18.0 Creatinine 0.75 0.85 Glucose 271 H 426 H Calcium 8.2 L 8.4 L Liver Function 08/31/23 09/01/23 Range/Units 18:49 04:11 Total Bilirubin 0.6 0.5 (0.2-1.0) mg/dL AST 17 15 (15-37) U/L ALT 16 15 (14-59) U/L Alkaline Phosphatase 69 64 (46-116) U/L Albumin 2.6 L 2.3 L (3.4-5.0) g/dL ABG ABG results: 08/31/23 20:34 VBG pH 7.450 H VBG pCO2 38.4 L Assessment and Plan Assessment and Plan (1) Severe sepsis: Assessment and Plan: lactate elevated at 2.4, febrile, tachycardia, positive blood culture for Streptococcus. Patient received fluid boluses and started on Vanco and Zosyn. Lactate level this morning is normal at 1.3 still with leukocytosis of twenty. Other cultures still pending. (2) Pneumonia of left lung due to group B Streptococcus: Assessment and Plan: causing #1, awaiting sensitivities, continue vanc and zosyn Qualifiers: Lung location: unspecified part of lung Qualified Code(s): J15.3 - Pneumonia due to streptococcus, group B (3) COPD with acute exacerbation: Assessment and Plan: CTA was negative for pulmonary emboli but possible left lung infiltrate. Continue Vanco and Zosyn for now, positive blood culture for Streptococcus waiting sensitivities. Continue IV steroids, scheduled DuoNeb's and Symbicort. Continue oxygen therapy and adjust treatment accordingly. (4) Hypoxia: Assessment and Plan: could be related to streptococcal pneumonia, versus chronic obstructive pulmonary disease exacerbation (5) Hyponatremia: Assessment and Plan: resolved with fluid, sodium this morning was one thirty-five (6) Hypertension: Assessment and Plan: continue home medications of lisinopril, Qualifiers: Hypertension type: unspecified Qualified Code(s): I10 - Essential (primary) hypertension (7) Obesity: Assessment and Plan: recommend significant weight loss once patient is feeling better Qualifiers: Obesity type: due to excess calories Obesity classification: adult class 3 (BMI >= 40) Serious obesity comorbidity presence: with serious comorbidity Body mass index: BMI 50.0-59.9 Qualified Code(s): E66.01 - Morbid (severe) obesity due to excess calories; Z68.43 - Body mass index [BMI] 50.0- 59.9, adult (8) Diabetes: Assessment and Plan: continue long-acting insulin and sliding scale insulin, fingersticks every before meals and daily at bedtime Qualifiers: Diabetes mellitus type: type 2 Diabetes mellitus custodial insulin use: with custodial use Diabetes mellitus complication status: with neurologic complications Diabetes mellitus complication detail: with polyneuropathy Qualified Code(s): E11.42 - Type 2 diabetes mellitus with diabetic polyneuropathy; Z79.4 - 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 (9) Neuropathy: Assessment and Plan: continue diclofenac, duloxetine, and Lyrica (10) High cholesterol: Plan patient is a full code Patient is an inpatient status and is expected to stay 2-3 days for medically needed services for her current medical conditions.
[2023-09-01] MEDS: INSULIN DETEMIR 300 UNIT/3 ML INSULN.PEN 58 UNIT SUBQ ×2 (09:11→21:16)
[2023-09-01] MEDS: AMITRIPTYLINE HCL 25 MG TABLET PO (09:12)
[2023-09-01] MEDS: ASPIRIN 81 MG TABLET.DR PO (09:12)
[2023-09-01] MEDS: OMEPRAZOLE 20 MG CAPSULE.DR PO (09:12)
[2023-09-01] MEDS: DICLOFENAC SODIUM 25 MG TABLET.DR 75 MG PO ×2 (09:12→21:02)
[2023-09-01] MEDS: LISINOPRIL 20 MG TABLET PO (09:13)
[2023-09-01] MEDS: DULOXETINE HCL 60 MG CAPSULE.DR PO ×2 (09:13→21:02)
[2023-09-01] MEDS: METHYLPREDNISOLONE SOD SUCC PF 40 MG/ML VIAL IVP ×3 (09:14→23:11)
[2023-09-01 11:29] LABS: Glucometer 363 mg/dL (74-106)
[2023-09-01] MEDS: BUDESONIDE 0.5 MG/2 ML AMPULE NEB IH ×2 (11:31→21:12)
[2023-09-01] MEDS: PREGABALIN 100 MG CAPSULE 300 MG PO (11:54)
[2023-09-01 12:50] LABS: Bilirubin Urine NEGATIVE (NEGATIVE); Blood Urine NEGATIVE (NEGATIVE); Clarity Urine CLEAR (CLEAR); Color Urine YELLOW (YELLOW); Glucose Urine UA >=1000 mg/dL (NEGATIVE); Ketones Urine TRACE mg/dL (NEGATIVE); Leukocyte Esterase Urine NEGATIVE (NEGATIVE); Nitrite Urine NEGATIVE (NEGATIVE); Protein Urine 30 mg/dL (NEG/TRACE); Specific Gravity Urine 1.025 (1.005-1.025); Urobilinogen Urine 0.2 EU/dL (0.2-1.0)
[2023-09-01 13:02] LABS: Urine Microscopic Indicated YES
[2023-09-01 13:03] LABS: RBC Urine NONE SEEN #/HPF (0-2); WBC Urine NONE SEEN #/HPF (NONE SEEN)
[2023-09-01 13:04] LABS: Bacteria Urine SMALL #/HPF (NONE SEEN); Mucus Urine NONE SEEN (NONE SEEN); Squamous Epithelial Cell Urine FEW #/LPF (NONE/RARE)
[2023-09-01 16:09] LABS: Glucometer 375 mg/dL (74-106)
[2023-09-01 20:26] LABS: Glucometer 345 mg/dL (74-106)
[2023-09-01] MEDS: ENOXAPARIN SODIUM 40 MG/0.4 ML SYRINGE SUBQ (22:45)
[2023-09-01 22:53] LABS: Magnesium 1.9 mg/dL (1.8-2.4)
[2023-09-02] VITALS (23 sets, daily range): BP systolic 117–179; BP diastolic 53–71; PULSE 71–106; RESP 12–18; TEMP 36.4–36.8; O2SAT 92–97
[2023-09-02] MEDS: PREGABALIN 100 MG CAPSULE 300 MG PO ×3 (00:08→23:37)
[2023-09-02] MEDS: IPRATROPIUM/ALBUTEROL SULFATE 3 ML AMPUL.NEB IH ×4 (04:05→20:05)
[2023-09-02 04:40] LABS: Basophils Percent Auto 0.1 % (0.2-2.0); Hematocrit 46.6 % (36.0-48.0); Hemoglobin 14.3 g/dL (12.0-16.0); Immature Granulocytes Abs Auto 0.13 10^3/uL (0.00-0.03); Immature Granulocytes Pct Auto 0.7 % (0.0-0.5); Lymphocytes Absolute Auto 1.8 10^3/uL (1.2-3.8); Lymphocytes Percent Auto 9.9 % (20.5-60.0); Mean Corpuscular HGB Conc 30.7 g/dL (29.9-35.2); Mean Corpuscular Hemoglobin 28.5 pg (26.7-34.0); Mean Platelet Volume 12.6 fL (9.5-13.5); Monocytes Absolute Auto 0.4 10^3/uL (0.3-0.8); Monocytes Percent Auto 2.2 % (1.7-12.0); Neutrophils Absolute Auto 15.4 10^3/uL (1.4-6.5); Neutrophils Percent Auto 87.1 % (43.0-75.0); Platelet Count 109 10^3/uL (150-450); Red Blood Count 5.01 10^6/uL (4.20-5.40); Red Cell Distribution Width 14.6 % (11.0-15.0); White Blood Count 17.7 10^3/uL (4.0-11.0)
[2023-09-02 05:03] LABS: Estimated Average Glucose 214 mg/dL; Glycohemoglobin A1C 9.1 % (4.5-6.2)
[2023-09-02 05:08] LABS: Alanine Aminotransferase 16 U/L (14-59); Albumin Globulin Ratio 0.6; Albumin Level 2.5 g/dL (3.4-5.0); Alkaline Phosphatase 57 U/L (46-116); Anion Gap 10.4; Aspartate Amino Transferase 11 U/L (15-37); BUN Creatinine Ratio 30.7; Bilirubin Total 0.2 mg/dL (0.2-1.0); Calcium 8.7 mg/dL (8.5-10.1); Carbon Dioxide 31.3 mmol/L (21.0-32.0); Chloride 104 mmol/L (98-107); Chol HDL Ratio 2.9; Cholesterol 125 mg/dL (<=200); Estimated GFR (African America >60 (>=60); Estimated GFR (Non-African Ame >60 (>=60); Globulin 4.3 g/dL; Glucose 358 mg/dL (74-106); HDL Cholesterol 43 mg/dL (40-60); LDL Cholesterol Calculated 57.8 mg/dL; Potassium 4.7 mmol/L (3.5-5.1); Sodium 141 mmol/L (136-145); Thyroid Stimulating Hormone 0.247 uIU/mL (0.358-3.740); Total Protein 6.8 g/dL (6.4-8.2); Triglycerides 121 mg/dL (<=150); VLDL CHOLESTEROL 24.2 mg/dL
[2023-09-02] MEDS: PIPERACILLIN SODIUM/TAZOBACTAM 3.375 GM in 0.9 % SODIUM CHLORIDE 50 ML IV ×3 (05:34→21:11)
[2023-09-02 07:36] LABS: Glucometer 334 mg/dL (74-106)
[2023-09-02] MEDS: METHYLPREDNISOLONE SOD SUCC PF 40 MG/ML VIAL IVP (07:50)
[2023-09-02] MEDS: INSULIN ASPART 300 UNIT/3 ML PEN SUBQ ×4 (07:50→21:11)
--- NOTE | 2023-09-02 08:18 | XR_ITS ---
[facility] [place] [id number] Patient Name: SINA NICHOLE MRN: [id number] date: 1970 Sex: F Assigned Patient Location: [place] Current Patient Location: Accession/Order Number: [id number] Exam Date: 09/02/2023 08:40 Report Date: 09/02/2023 09:19 At the request of: UMBERTO CANTU Procedure: XR chest 1V CLINICAL HISTORY: hypoxia. EXAMINATION: Portable AP upright chest: 09/02/2023 at 0819 hours COMPARISON: AP chest 12/04/2022. FINDINGS: The patient is slightly rotated, lordotic. The patient has large body habitus. The visualized soft tissues are normal. The heart size remains enlarged. The aorta has normal contour. There are slightly low lung volumes with prominent appearing interstitial markings without discrete infiltrates, pulmonary edema or pneumothorax. XR/XR chest 1V IMPRESSION: 1. Cardiomegaly remains unchanged. 2. Increased interstitial markings, which could be secondary to crowding of the vessels due to low lung volumes however developing pulmonary edema or atypical interstitial infiltrates are in differential consideration. Electronically authenticated by: SUNNI DONAHUE Date: 09/02/2023 09:19
--- NOTE | 2023-09-02 08:20 | P.PN_ITS ---
Progress Note: Subjective Subjective Interval history: patient denies any events overnight. She says she didn't get much sleep yesterday and is trying to rest currently during the time of exam. Still requiring continuous nasal cannula oxygen. Denies any fevers chills nausea vomiting or diarrhea. She does admit to some right lower leg pain with some open sores. Exam Narrative Exam Narrative: General: Patient is alert, and oriented to person, place and time with normal affect, morbid obesity Skin: stasis dermatitis bilateral lower extremities with several healing scabs on the left lower leg Head: atraumatic, acephalic Eyes: PERRLA, no nystagmus present, conjunctiva clear, no scleral icterus Ears: normal gross auditory acuity Neck: no masses palpated, normal thyroid Heart: Normal rate and rhythm, no murmurs/rubs/gallops Lungs: no audible wheezes, crackles and diminished breath sounds all lung smith Abdomen: Normal audible bowel sounds, no distension, No palpable masses, no organomegaly, no rebound/guarding/ or rigidity Musculoskeletal: +2 swelling bilateral lower extremities Neuro: CN II-X grossly intact Constitutional Vital Signs, click to edit/add: Last Vital Signs Temp 97.6 F 09/02/23 05:42 Pulse 87 09/02/23 08:00 Resp 18 09/02/23 07:56 BP 117/53 09/02/23 05:42 Pulse Ox 93 L 09/02/23 08:00 O2 Del Method Nasal Cannula 09/02/23 05:42 O2 Flow Rate 2 09/02/23 05:42 Progress Note: Objective Labs Labs: Short CBC 09/02/23 Range/Units 04:28 WBC 17.7 H (4.0-11.0) 10^3/uL Hgb 14.3 (12.0-16.0) g/dL Hct 46.6 (36.0-48.0) % Plt Count 109 L (150-450) 10^3/uL BMP 09/02/23 04:28 Sodium 141 Potassium 4.7 Chloride 104 Carbon Dioxide 31.3 BUN 27.0 H Creatinine 0.88 Glucose 358 H Calcium 8.7 Liver Function 09/02/23 Range/Units 04:28 Total Bilirubin 0.2 (0.2-1.0) mg/dL AST 11 L (15-37) U/L ALT 16 (14-59) U/L Alkaline Phosphatase 57 (46-116) U/L Albumin 2.5 L (3.4-5.0) g/dL Urine 09/01/23 Range/Units 10:10 Urine Color Yellow (YELLOW) Urine Clarity Clear (CLEAR) Urine pH 5.0 (5.0-9.0) Ur Specific [place] 1.025 (1.005-1.025) Urine Protein 30 A (NEG/TRACE) mg/dL Urine Glucose (UA) >=1000 A (NEGATIVE) mg/dL Progress Note: A&P Assessment and Plan (1) Pneumonia of left lung due to group B Streptococcus: Assessment and Plan: awaiting sensitivities of blood cultures, continue vanc and zosyn. Qualifiers: Lung location: unspecified part of lung Qualified Code(s): J15.3 - Pneumonia due to streptococcus, group B (2) COPD with acute exacerbation: Assessment and Plan: Continue Vanco and Zosyn for now, positive blood culture for Streptococcus waiting sensitivities. stop IV steroids, continue scheduled DuoNeb's and Symbicort. Continue oxygen therapy and adjust treatment accordingly. (3) Hypoxia: Assessment and Plan: could be related to streptococcal pneumonia? (4) Hyponatremia: Assessment and Plan: resolved with IV fluid (5) Hypertension: Assessment and Plan: continue home meds Qualifiers: Hypertension type: unspecified Qualified Code(s): I10 - Essential (primary) hypertension (6) Obesity: Assessment and Plan: recommend significant weight loss once patient is feeling better Qualifiers: Body mass index: BMI 50.0-59.9 Obesity classification: adult class 3 (BMI >= 40) Obesity type: due to excess calories Serious obesity comorbidity presence: with serious comorbidity Qualified Code(s): E66.01 - Morbid (severe) obesity due to excess calories; Z68.43 - Body mass index [BMI] 50.0-59.9, adult (7) Diabetes: Assessment and Plan: continue long-acting insulin and sliding scale insulin, fingersticks every before meals and daily at bedtime, ha1c 9.1 Qualifiers: Diabetes mellitus complication detail: with polyneuropathy Diabetes mellitus complication status: with neurologic complications Diabetes mellitus retirement insulin use: with aids counselor use Diabetes mellitus type: type 2 Qualified Code(s): E11.42 - Type 2 diabetes mellitus with diabetic polyneuropathy; 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
[2023-09-02] MEDS: ASPIRIN 81 MG TABLET.DR PO (09:36)
[2023-09-02] MEDS: DICLOFENAC SODIUM 25 MG TABLET.DR 75 MG PO ×2 (09:36→21:09)
[2023-09-02] MEDS: LISINOPRIL 20 MG TABLET PO (09:37)
[2023-09-02] MEDS: AMITRIPTYLINE HCL 25 MG TABLET PO (09:37)
[2023-09-02] MEDS: OMEPRAZOLE 20 MG CAPSULE.DR PO (09:37)
[2023-09-02] MEDS: DULOXETINE HCL 60 MG CAPSULE.DR PO ×2 (09:37→21:10)
[2023-09-02] MEDS: INSULIN DETEMIR 300 UNIT/3 ML INSULN.PEN 58 UNIT SUBQ ×2 (09:39→21:10)
[2023-09-02] MEDS: BUDESONIDE 0.5 MG/2 ML AMPULE NEB IH ×2 (10:36→20:05)
[2023-09-02 11:42] LABS: Glucometer 326 mg/dL (74-106)
[2023-09-02] MEDS: 0.9 % SODIUM CHLORIDE 250 ML 10 ML IV (14:19)
--- NOTE | 2023-09-02 14:37 | CA_ITS ---
Patient Name: SINA NICHOLE MR#: [id number] : 1970 Exam Date: 09/03/2023 Ordering Doctor: UMBERTO CANTU . ECHOCARDIOGRAM REPORT PROCEDURE: CA ECHO DOPPLER COMPLETE INDICATIONS: bacteremia, Lower ext edema, pneumonia, COPD hypertension, diabetes COMPARISON: None. DESCRIPTION: COMPLETE ECHOCARDIOGRAM Real-time transthoracic echocardiography with 2D, M-mode, spectral and color flow Doppler performed. QUALITY: Technically difficult due to patient's body habitus. 67 , 378#, BSA 2.65 m2 LEFT VENTRICLE: Mild dilatation. Severe concentric left ventricular hypertrophy. LV EF: Global left ventricular systolic function is difficult to assess but appears preserved. Unable to assess regional wall motion abnormalities. Consider contrast study for better delineation of endocardial borders. DIASTOLIC: Unable to be assessed. ATRIAL SEPTUM: Inadequately seen. LEFT ATRIUM: Poorly seen; appears normal in size. RIGHT ATRIUM: Poorly seen; appears normal in size. RIGHT VENTRICLE: Poorly seen; appears to be normal in size. Normal right ventricular systolic function. TRICUSPID VALVE: Poorly seen. Trivial regurgitation. Unable to assess right-sided pressures due to lack of measurable tricuspid regurgitation. MITRAL VALVE: Normal mobility and thickness. There is no mitral annular calcification. No mitral regurgitation. AORTIC VALVE: Normal trileaflet appearance. No visible sclerosis. Normal leaflet mobility. No evidence of aortic valve stenosis. No aortic regurgitation. AORTIC ROOT: Normal diameter and appearance. PULMONIC VALVE: Not well visualized. PERICARDIUM: Anterior free space; feeling effusion versus fat pad. IVC: Not well visualized. CONCLUSION: 1. Global left ventricular systolic function is difficult to assess but appears preserved 2. Severely increased left ventricular wall thickness 3. The right ventricle is poorly seen; it appears normal in size and systolic function 4. Valvular structures are poorly seen; no obvious valvular abnormalities 5. Anterior free space; trivial effusion versus fat pad 6. Poor quality study due to patient's body habitus; consider contrast study for better delineation of endocardial borders Adult Echocardiography Procedure Report Left Ventricle LVEDD (3.7 - 5.6 cm): 5.56 cm LVESD (2.2 - 4.0 cm): 3.47 cm LVIVS thickness (0.6 - 1.2 cm): 1.69 cm LVPW thickness (0.5 - 1.0 cm): 1.56 cm LVOT Max Gradient: 2.29 mm[Hg] LVOT Area (cm2): 0.76 m/s Peak Velocity (LVOT): 0.76 m/s Mean Velocity (LVOT): 0.55 m/s LVOT Diameter 2.44 cm Left Atrium Left Atrium Systolic Dimension: 4.36 cm Mitral Valve MV E to A Ratio: 0.39 Mitral Valve A-Wave Peak Velocity: 0.44 m/s Mitral Valve E-Wave Peak Velocity: 0.17 m/s Right Ventricle Aorta AO Root Diam: 3.66 cm Ascending Ao Diam: 2.77 cm Aortic Valve AoV Area (Peak Song): 2.94 cm2, 2.94 cm2 AoV Area (VTI): 3.83 cm2, 3.83 cm2 Peak Velocity(Antegrade Flow): 1.21 m/s Peak Gradient(Antegrade Flow): 5.84 mm[Hg] Mean Velocity(Antegrade Flow): 0.84 m/s Mean Gradient(Antegrade Flow): 3.17 mm[Hg] Velocity Time Integral: 23.51 cm Tricuspid Valve Pulmonic Valve Peak Velocity: 0.67 m/s Peak Gradient: 1.49 mm[Hg], 2.19 mm[Hg] Right Atrium Dictated by: Julio Tobar M.D. on 09/03/2023 at 12:40 Approved by: Julio Tobar M.D. on 09/03/2023 at 12:45
[2023-09-02 16:11] LABS: Glucometer 321 mg/dL (74-106)
[2023-09-02 20:20] LABS: Glucometer 311 mg/dL (74-106)
[2023-09-02] MEDS: ENOXAPARIN SODIUM 40 MG/0.4 ML SYRINGE SUBQ (21:10)
[2023-09-03] VITALS (16 sets, daily range): BP systolic 112–177; BP diastolic 42–81; PULSE 70–89; RESP 14–18; TEMP 36.3–36.7; O2SAT 92–96
[2023-09-03] MEDS: ACETAMINOPHEN 325 MG TABLET 650 MG PO (04:03)
[2023-09-03] MEDS: IPRATROPIUM/ALBUTEROL SULFATE 3 ML AMPUL.NEB IH ×2 (04:05→10:00)
[2023-09-03] MEDS: PIPERACILLIN SODIUM/TAZOBACTAM 3.375 GM in 0.9 % SODIUM CHLORIDE 50 ML IV ×2 (05:00→13:16)
[2023-09-03 05:16] LABS: Basophils Percent Auto 0.1 % (0.2-2.0); Eosinophils Percent Auto 0.2 % (0.9-7.0); Hematocrit 44.7 % (36.0-48.0); Hemoglobin 13.6 g/dL (12.0-16.0); Immature Granulocytes Abs Auto 0.08 10^3/uL (0.00-0.03); Immature Granulocytes Pct Auto 0.6 % (0.0-0.5); Lymphocytes Absolute Auto 2.7 10^3/uL (1.2-3.8); Lymphocytes Percent Auto 19.7 % (20.5-60.0); Mean Corpuscular HGB Conc 30.4 g/dL (29.9-35.2); Mean Corpuscular Hemoglobin 28.7 pg (26.7-34.0); Mean Corpuscular Volume 94.3 fL (81.0-99.0); Mean Platelet Volume 13.5 fL (9.5-13.5); Monocytes Absolute Auto 0.8 10^3/uL (0.3-0.8); Monocytes Percent Auto 5.5 % (1.7-12.0); Neutrophils Absolute Auto 10.2 10^3/uL (1.4-6.5); Neutrophils Percent Auto 73.9 % (43.0-75.0); Platelet Count 112 10^3/uL (150-450); Red Blood Count 4.74 10^6/uL (4.20-5.40); Red Cell Distribution Width 14.3 % (11.0-15.0); White Blood Count 13.8 10^3/uL (4.0-11.0)
[2023-09-03] MEDS: HYDRALAZINE HCL 20 MG/ML VIAL 10 MG IVP (05:38)
[2023-09-03 05:54] LABS: Alanine Aminotransferase 18 U/L (14-59); Albumin Globulin Ratio 0.6; Albumin Level 2.4 g/dL (3.4-5.0); Alkaline Phosphatase 53 U/L (46-116); Anion Gap 9.1; Aspartate Amino Transferase 11 U/L (15-37); BUN Creatinine Ratio 34.9; Bilirubin Total 0.2 mg/dL (0.2-1.0); Calcium 8.6 mg/dL (8.5-10.1); Carbon Dioxide 33.3 mmol/L (21.0-32.0); Chloride 107 mmol/L (98-107); Estimated GFR (African America >60 (>=60); Estimated GFR (Non-African Ame >60 (>=60); Globulin 4.1 g/dL; Glucose 244 mg/dL (74-106); Potassium 4.4 mmol/L (3.5-5.1); Sodium 145 mmol/L (136-145); Total Protein 6.5 g/dL (6.4-8.2)
[2023-09-03 07:22] LABS: Glucometer 221 mg/dL (74-106)
[2023-09-03] MEDS: INSULIN ASPART 300 UNIT/3 ML PEN SUBQ ×2 (08:08→12:25)
--- NOTE | 2023-09-03 08:46 | P.PN_ITS ---
Progress Note: Subjective Subjective Interval history: patient denies any events overnight. She says she didn't get much sleep yesterday and is trying to rest currently during the time of exam. Still requiring continuous nasal cannula oxygen. Denies any fevers chills nausea vomiting or diarrhea. She does admit to some right lower leg pain with some open sores. Exam Constitutional Vital Signs, click to edit/add: Last Vital Signs Temp 98.0 F 09/03/23 08:17 Pulse 89 09/03/23 08:17 Resp 18 09/03/23 08:17 BP 156/66 H 09/03/23 08:17 Pulse Ox 94 L 09/03/23 08:17 O2 Del Method Nasal Cannula 09/03/23 08:17 O2 Flow Rate 2 09/03/23 08:17 Progress Note: Objective Labs Labs: Short CBC 09/03/23 Range/Units 04:04 WBC 13.8 H (4.0-11.0) 10^3/uL Hgb 13.6 (12.0-16.0) g/dL Hct 44.7 (36.0-48.0) % Plt Count 112 L (150-450) 10^3/uL BMP 09/03/23 04:04 Sodium 145 Potassium 4.4 Chloride 107 Carbon Dioxide 33.3 H BUN 29.0 H Creatinine 0.83 Glucose 244 H Calcium 8.6 Liver Function 09/03/23 Range/Units 04:04 Total Bilirubin 0.2 (0.2-1.0) mg/dL AST 11 L (15-37) U/L ALT 18 (14-59) U/L Alkaline Phosphatase 53 (46-116) U/L Albumin 2.4 L (3.4-5.0) g/dL Progress Note: A&P Assessment and Plan (1) Pneumonia of left lung due to group B Streptococcus: Qualifiers: Lung location: unspecified part of lung Qualified Code(s): J15.3 - Pneumonia due to streptococcus, group B (2) COPD with acute exacerbation: (3) Hypoxia: (4) Hyponatremia: (5) Hypertension: Qualifiers: Hypertension type: unspecified Qualified Code(s): I10 - Essential (primary) hypertension (6) Obesity: Qualifiers: Obesity type: due to excess calories Obesity classification: adult class 3 (BMI >= 40) Serious obesity comorbidity presence: with serious comorbidity Body mass index: BMI 50.0-59.9 Qualified Code(s): E66.01 - Morbid (severe) obesity due to excess calories; Z68.43 - Body mass index [BMI] 50.0- 59.9, adult (7) Diabetes: Qualifiers: Diabetes mellitus type: type 2 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
[2023-09-03] MEDS: AMITRIPTYLINE HCL 25 MG TABLET PO (08:48)
[2023-09-03] MEDS: ASPIRIN 81 MG TABLET.DR PO (08:49)
[2023-09-03] MEDS: DULOXETINE HCL 60 MG CAPSULE.DR PO (08:50)
[2023-09-03] MEDS: LISINOPRIL 20 MG TABLET PO (08:50)
[2023-09-03] MEDS: OMEPRAZOLE 20 MG CAPSULE.DR PO (08:51)
[2023-09-03] MEDS: DICLOFENAC SODIUM 25 MG TABLET.DR 75 MG PO (09:02)
[2023-09-03] MEDS: BUDESONIDE 0.5 MG/2 ML AMPULE NEB IH (10:00)
[2023-09-03] MEDS: INSULIN DETEMIR 300 UNIT/3 ML INSULN.PEN 58 UNIT SUBQ (10:19)
[2023-09-03 11:29] LABS: Glucometer 215 mg/dL (74-106)
--- NOTE | 2023-09-03 11:44 | CM.NOTE ---
Rounds made with Dr. Becerra, pt will discharge home on oral antibiotics. Pt awaiting echo for today, possible discharge this afternoon.
--- NOTE | 2023-09-03 11:51 | CM.NOTE ---
Important Message From Medicare discussed with pt, pt verbalizes understanding and signs paper. Original given to pt and copy placed in pt's chart.
[2023-09-03] MEDS: PREGABALIN 100 MG CAPSULE 300 MG PO (13:14)
--- NOTE | 2023-09-03 14:58 | PM.DS1 ---
DS: Providers Provider Date of admission: 08/31/23 20:14 Primary care physician: Huber Blas NP Admitting clinician: Jacqueline Becerra Consults: 09/01/23 00:01 Consult to Pharmacy Routine Consulting Provider: Karie Blake Reason for consultation: Vancomycin dosing/monitoring - 1st dose given in ED Has provider been notified: No 09/01/23 09:00 Occupational Therapy Eval and Treat Routine Reason for consultation: Weakness Physical Therapy Eval and Treat Routine Reason for consultation: Weakness Has provider been notified: No Attending physician on discharge: Jacqueline Becerra DS: Diagnosis Discharge Diagnosis (1) Group B streptococcal bacteriuria: (2) Pneumonia of left lung due to group B Streptococcus: Qualifiers: Lung location: unspecified part of lung Qualified Code(s): J15.3 - Pneumonia due to streptococcus, group B (3) COPD with acute exacerbation: (4) Hypoxia: (5) Hyponatremia: (6) Hypertension: Qualifiers: Hypertension type: unspecified Qualified Code(s): I10 - Essential (primary) hypertension (7) Obesity: Qualifiers: Body mass index: BMI 50.0-59.9 Obesity classification: adult class 3 (BMI >= 40) Obesity type: due to excess calories Serious obesity comorbidity presence: with serious comorbidity Qualified Code(s): E66.01 - Morbid (severe) obesity due to excess calories; Z68.43 - Body mass index [BMI] 50.0-59.9, adult (8) Diabetes: Qualifiers: Diabetes mellitus complication detail: with polyneuropathy Diabetes mellitus complication status: with neurologic complications Diabetes mellitus detention insulin use: with technician terminal and repeater use Diabetes mellitus type: type 2 Qualified Code(s): E11.42 - Type 2 diabetes mellitus with diabetic polyneuropathy; Z79.4 - care home (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 (9) Neuropathy: (10) High cholesterol: DS: Summary Hospital Course Hospital Course: patient is a 53-year-old morbidly obese female with past medical history of severe chronic obstructive pulmonary disease requiring oxygen therapy,obstructive sleep apnea and noncompliant with BiPAP, insulin-dependent type 2 diabetes, hypertension, GERD, diabetic neuropathy and depression. is also present at bedside during the time of admission exam. Patient states that yesterday they did grocery shopping came home and she felt very weak. She was in the restroom trying to change her clothes and she could not get her clothes on. She states that she also became short short of breath and they placed her 2 L nasal cannula that she has at home on. She had also been having some chills and fatigue, and runny nose. She says she coughs at baseline and nothing out of her ordinary. She also noted that her fever started to climb and was approximately one hundred and three. Her called EMS and she was brought to the emergency room. Viral panel was negative.chest CTA was performed which showed no pulmonary embolus and possible inflammatory processes and left lung. Due to elevated white blood cell count of twenty-two, elevated lactate level of 2.4, fever,tachycardia Emergency Room initiated sepsis protocol patient was given IV fluid boluses, and lactate improved and is normal 1.3. White blood cell count has also decreased from 20-20. Patient was also started on broad-spectrum antibiotics of vancomycin and Zosyn for her sepsis. Blood cultures were obtained along with sputum culture and urine culture. Blood cultures have come back positive for Group B strep sensitive to Levaquin. She is saturating on her home oxygen dose of 2L NC. IV steroids were also given, duonebs and symbicort. Echo today showed no visual vegetations but poor study due to body habitus. She has remained Afebrile for 48 hours, normal WBC's of 13.8, no further shortness of breath. She will be discharged home today with close outpatient follow up. Ha1c was 9.0 discussed with patient about better compliance with her diet and need for further outpatient changes. She will be given Levaquin 750mg daily for 10 days for her bacteremia. She is to return to the ER with any worsening symptoms. Status at Discharge Functional status at discharge: independent ambulation Overall status at discharge: patient is progressing back to baseline Time Spent with Patient Time attestation: Total time spent providing and/or coordinating discharge services: Time spent: greater than 30 minutes Exam Narrative Exam Narrative: General: Patient is alert, and oriented to person, place and time with normal affect, morbid obesity Skin: stasis dermatitis bilateral lower extremities with several healing scabs on the left lower leg Head: atraumatic, acephalic Eyes: PERRLA, no nystagmus present, conjunctiva clear, no scleral icterus Ears: normal gross auditory acuity Neck: no masses palpated, normal thyroid Heart: Normal rate and rhythm, no murmurs/rubs/gallops Lungs: no audible wheezes, crackles and diminished breath sounds all lung smith Abdomen: Normal audible bowel sounds, no distension, No palpable masses, no organomegaly, no rebound/guarding/ or rigidity Musculoskeletal: +1 swelling bilateral lower extremities Neuro: CN II-X grossly intact Constitutional Vital Signs, click to edit/add: Last Vital Signs Temp 97.8 F 09/03/23 13:01 Pulse 77 09/03/23 14:00 Resp 18 09/03/23 13:01 BP 140/64 09/03/23 13:01 Pulse Ox 93 L 09/03/23 13:01 O2 Del Method Nasal Cannula 09/03/23 13:01 O2 Flow Rate 2 09/03/23 10:01 DS: Data Data Completed and Pending Labs on day of discharge: Labs from last 24 hours 09/03/23 09/03/23 09/03/23 11:27 07:21 04:04 WBC 13.8 H RBC 4.74 Hgb 13.6 Hct 44.7 MCV 94.3 MCH 28.7 MCHC 30.4 RDW 14.3 Plt Count 112 L MPV 13.5 Neut % (Auto) 73.9 Lymph % (Auto) 19.7 L [place] % (Auto) 5.5 Eos % (Auto) 0.2 L Baso % (Auto) 0.1 L Neut # (Auto) 10.2 H Lymph # (Auto) 2.7 [place] # (Auto) 0.8 Eos # (Auto) 0.0 Baso # (Auto) 0.0 Abs Immat Gran (auto) 0.08 H Imm/Tot Granulo (auto) 0.6 H Sodium 145 Potassium 4.4 Chloride 107 Carbon Dioxide 33.3 H Anion Gap 9.1 BUN 29.0 H Creatinine 0.83 Est GFR ( Amer) >60 Est GFR (Non-Af Amer) >60 BUN/Creatinine Ratio 34.9 Glucose 244 H Calcium 8.6 Total Bilirubin 0.2 AST 11 L ALT 18 Alkaline Phosphatase 53 Total Protein 6.5 Albumin 2.4 L Globulin 4.1 Albumin/Globulin Ratio 0.6 POC Glucose 215 H 221 H 09/02/23 09/02/23 20:09 16:10 WBC RBC Hgb Hct MCV MCH MCHC RDW Plt Count MPV Neut % (Auto) Lymph % (Auto) [place] % (Auto) Eos % (Auto) Baso % (Auto) Neut # (Auto) Lymph # (Auto) [place] # (Auto) Eos # (Auto) Baso # (Auto) Abs Immat Gran (auto) Imm/Tot Granulo (auto) Sodium Potassium Chloride Carbon Dioxide Anion Gap BUN Creatinine Est GFR ( Amer) Est GFR (Non-Af Amer) BUN/Creatinine Ratio Glucose Calcium Total Bilirubin AST ALT Alkaline Phosphatase Total Protein Albumin Globulin Albumin/Globulin Ratio POC Glucose 311 H 321 H Preliminary micro results at discharge 08/31/23 18:20 - Preliminary Blood Strep agalactiae - (group b) 08/31/23 18:12 Blood Culture Result 1 - Preliminary Blood Strep agalactiae - (group b) Discharge Plan Discharge Disposition: Home, Self-Care Condition: Fair Discharge Medications: New levofloxacin 750 mg tablet 750 mg PO DAILY 10 Days Qty: 10 0RF Continued hydrocodone-acetaminophen 5-325 mg tablet 1 tab PO TID PRN (Reason: pain) Qty: 90 0RF acetaminophen 500 mg capsule 1,000 mg PO Q6H PRN (Reason: fever or pain) aspirin [Adult Aspirin Regimen] 81 mg tablet,delayed release (DR/EC) 81 mg PO DAILY amitriptyline 25 mg tablet 25 mg PO DAILY insulin glargine [Lantus U-100 Insulin] 100 unit/mL solution 58 unit subcut BID furosemide 40 mg tablet 40 mg PO DAILY lisinopril 20 mg tablet 20 mg PO DAILY pregabalin 300 mg capsule 300 mg PO Q12H insulin aspart U-100 [Novolog FlexPen U-100 Insulin] 100 unit/mL (3 mL) insulin pen 1 sliding scale dose subcut USEASDIRECTD Spiriva Respimat 2.5 mcg/actuation mist 2 inh inhalation DAILY budesonide-formoterol [Symbicort] 160-4.5 mcg/actuation HFA aerosol inhaler 2 inh inhalation BID Trulicity 3 mg/0.5 mL pen injector 3 mg subcut QWEEK diclofenac sodium 75 mg tablet,delayed release (DR/EC) 75 mg PO BID omeprazole 20 mg capsule,delayed release(DR/EC) 20 mg PO DAILY duloxetine 60 mg capsule,delayed release(DR/EC) 60 mg PO BID Qty: 60 0RF Activity: increase activity as tolerated and wear oxygen at all times Activity Detail: wear oxygen continuous until evaluated by pcp at follow up appointment Diet: advance to your usual diet Patient Instructions: Sepsis (DC), Bacterial Pneumonia (DC) Forms: Portal Instructions Follow Up Appointments: follow up appt with huber blas on september 12, 2023 @ 1000 Am,
--- NOTE | 2023-09-04 15:16 | CM.DCFOLLOWU ---
1st attempt discharge follow up call made, no answer 09/04/23
== END 2023-09-03 17:08 | disposition home or self-care (01) | DRG 871 ==
LOC: ER 20:25 → MS 20:45
PROVIDERS: Emergency Medicine; Physician Assistant; Registered Nurse; Admitting Provider Family Medicine; Emergency Provider Emergency Medicine; PCP Nurse Practitioner; Visit Provider Family Medicine
DX: A40.1 Sepsis due to streptococcus, group B (principal); J15.3 Pneumonia due to streptococcus, group B; J44.1 Chronic obstructive pulmonary disease with (acute) exacerbation; E87.1 Hypo-osmolality and hyponatremia; Z68.43 Body mass index [BMI] 50.0-59.9, adult; J44.0 Chronic obstructive pulmonary disease with (acute) lower respiratory infection; R65.20 Severe sepsis without septic shock; G47.33 Obstructive sleep apnea (adult) (pediatric); R09.02 Hypoxemia; F32.A Depression, unspecified; I10 Essential (primary) hypertension; F17.200 Nicotine dependence, unspecified, uncomplicated; E66.01 Morbid (severe) obesity due to excess calories; E78.00 Pure hypercholesterolemia, unspecified; M19.90 Unspecified osteoarthritis, unspecified site; E11.42 Type 2 diabetes mellitus with diabetic polyneuropathy; K21.9 Gastro-esophageal reflux disease without esophagitis; Z79.4 Long term (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; Z79.899 Other long term (current) drug therapy; Z79.82 Long term (current) use of aspirin; Z90.710 Acquired absence of both cervix and uterus; Z89.429 Acquired absence of other toe(s), unspecified side; Z99.81 Dependence on supplemental oxygen; Z79.1 Long term (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 non-steroidal anti-inflammatories (NSAID); Z79.51 Long term (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 inhaled steroids; Z79.85 Long-term (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 injectable non-insulin antidiabetic drugs; Z79.891 Long term (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 opiate analgesic; Z91.199 Patient's noncompliance with other medical treatment and regimen due to unspecified reason
CPT/HCPCS: 0202U; 36415; 71045; 71275; 80053; 80061; 81001; 82800; 82948; 83036; 83605; 83735; 83880; 84145; 84443; 84484; 85025; 85610; 87040; 87070; 87081; 87150; 87186; 93005; 93306; 94640; 94761; 96365; 96366; 96368; 96372; 96375; 96376; 97161; 97165; 99285; 99406; J0360; J1650; J1885; J2543; J2920; J2930; J3370; Q9967

== ENCOUNTER 2023-09-10 13:51 | Inpatient (IN) | payer MEDICARE, OTHER, SELFPAY ==
[2023-09-10] VITALS (22 sets, daily range): BP systolic 98–166; BP diastolic 40–82; PULSE 87–108; RESP 12–25; TEMP 37.2–37.6; O2SAT 83–96; BMI 56.4; BMI 57.6
--- NOTE | 2023-09-10 14:00 | ECG_ITS ---
The [facility] Test Date: 2023-09-10 Pat Name: SINA NICHOLE Department: Room: - Gender: Female [employer]: : 1970 Requested By: LUIS M CHAND Order Number: [id number] Reading MD: FELIZ DIOR Measurements Intervals [place] Rate: 87 P: 46 [place]: 170 QRS: -50 QRSD: 76 T: 94 QT: 362 QTc: 407 Interpretive Statements 1100 Sinus rhythm 7200 Abnormal left axis deviation 8102 Low QRS voltage in chest leads 9150 abnormal ECG Compared to ECG 08/31/2023 18:08:55 Electronically Signed On 09-10-2023 22:38:03 EST by FELIZ DIOR
--- NOTE | 2023-09-10 14:00 | XR_ITS ---
The [address] [address] Patient Name: SINA NICHOLE MRN: [id number] date: 1970 Sex: F Assigned Patient Location: ER Current Patient Location: ER Accession/Order Number: [id number] Exam Date: 09/10/2023 14:38 Report Date: 09/10/2023 14:51 At the request of: KARISHMA LEONE Procedure: XR chest 1V EXAM: CHEST 1 VIEW HISTORY: Shortness of breath TECHNIQUE: Chest, one view. COMPARISON: None. FINDINGS: Low lung volumes with bibasilar atelectasis. No focal consolidation, pleural effusion, or pneumothorax. Pulmonary vasculature is within normal limits. Cardiomediastinal silhouette is within normal limits. XR/XR chest 1V IMPRESSION: 1. Expiratory chest. No acute cardiopulmonary disease. Recommend followup imaging if symptoms worsen or persist. Electronically authenticated by: VALENCIA FREDERICK Date: 09/10/2023 14:51
--- NOTE | 2023-09-10 14:04 | ED.SOB1 ---
HPI - SOB/Dyspnea General Chief Complaint: Shortness of Breath/Dyspnea Stated Complaint: SHORTNESS OF BREATH Time Seen by Provider: 09/10/23 13:56 Source: patient Mode of arrival: ambulance Limitations: no limitations History of Present Illness HPI Narrative: Patient is a 53-year-old female with a history of COPD who returns to the emergency department 1 week after being discharged from this hospital for COPD exacerbation. She was discharged from the hospital on aquin, she continues to take this medication. She was not prescribed steroids, she states that she was doing okay until yesterday when she had an increase in chest discomfort and congestion associated with increased shortness of breath today. She reports fevers as high as 101.0 Fahrenheit yesterday. She states she had positive blood cultures while she was in the hospital. She has not had any sputum production or hemoptysis. She states she has chronic swelling to the lower extremities. She arrives by EMS from home. She wears oxygen by nasal cannula at 2 L chronically, she states since yesterday she has had to turn her oxygen up. EMS gave her breathing treatment prior to arrival with some improvement. She states she quit smoking 10 days ago and was smoking 1 pack of cigarettes per day. Related Data Home Medications Medication Instructions Recorded Confirmed acetaminophen 500 mg capsule 1,000 mg PO Q6H PRN fever or pain 03/20/23 09/01/23 amitriptyline 25 mg tablet 25 mg PO DAILY 03/20/23 08/31/23 aspirin 81 mg tablet,delayed 81 mg PO DAILY 03/20/23 08/31/23 release (Adult Aspirin Regimen) budesonide-formoterol HFA 160 2 inh inhalation BID 03/20/23 08/31/23 mcg-4.5 mcg/actuation aerosol inhaler (Symbicort) diclofenac sodium 75 mg 75 mg PO BID 03/20/23 08/31/23 tablet,delayed release dulaglutide 3 mg/0.5 mL 3 mg subcut QWEEK 03/20/23 08/31/23 subcutaneous pen injector ([facility]) furosemide 40 mg tablet 40 mg PO DAILY 03/20/23 08/31/23 insulin aspart U-100 100 unit/mL 1 sliding scale dose subcut 03/20/23 08/31/23 (3 mL) subcutaneous pen (Novolog USEASDIRECTD FlexPen U-100 Insulin aspart) insulin glargine 100 unit/mL 58 unit subcut BID 03/20/23 08/31/23 subcutaneous solution (Lantus U-100 Insulin) lisinopril 20 mg tablet 20 mg PO DAILY 03/20/23 08/31/23 omeprazole 20 mg capsule,delayed 20 mg PO DAILY 03/20/23 08/31/23 release pregabalin 300 mg capsule 300 mg PO Q12H 03/20/23 08/31/23 tiotropium bromide 2.5 2 inh inhalation DAILY 03/20/23 08/31/23 mcg/actuation mist for inhalation (Spiriva Respimat) Previous Rx's Medication Instructions Recorded duloxetine 60 mg capsule,delayed 60 mg PO BID #60 caps 04/05/23 release hydrocodone 5 mg-acetaminophen 325 1 tab PO TID PRN pain #90 tabs 06/04/23 mg tablet levofloxacin 750 mg tablet 750 mg PO DAILY 10 days #10 tabs 09/03/23 hydrocodone 5 mg-acetaminophen 325 1 tab PO TID PRN pain #90 tabs 09/04/23 mg tablet Allergies Allergy/AdvReac Type Severity Reaction Status Date / Time No Known Drug Allergies Allergy Verified 08/14/23 09:37 Review of Systems ROS Constitutional Reports: fever and chills Eyes Denies: change in vision Ears, nose, mouth, and throat Reports: nasal congestion; Denies: throat pain Cardiovascular Reports: chest pain Respiratory Reports: shortness of breath, cough and wheezing; Denies: change in phlegm color or coughing up blood Gastrointestinal Denies: abdominal pain, nausea or vomiting Musculoskeletal Reports: back pain; Denies: neck pain Integumentary/Breast Denies: rash Endocrine Denies: excessive urination [facility] Medical History Amputation toe ?S98.139A - Complete traumatic amputation of one unspecified lesser toe, initial encounter (ICD-10) Neuropathy ?G62.9 - Polyneuropathy, unspecified (ICD-10) Acid reflux ?K21.9 - Gastro-esophageal reflux disease without esophagitis (ICD-10) Diabetes ?E11.9 - Type 2 diabetes mellitus without complications (ICD-10) COPD (chronic obstructive pulmonary disease) ?J44.9 - Chronic obstructive pulmonary disease, unspecified (ICD-10) Asthma ?J45.909 - Unspecified asthma, uncomplicated (ICD-10) High cholesterol ?E78.00 - Pure hypercholesterolemia, unspecified (ICD-10) Surgical History History of hammertoe correction ?Z98.890 - Other specified postprocedural states (ICD-10) ?Z87.39 - Personal history of other diseases of the musculoskeletal system and connective tissue (ICD-10) Hx of cholecystectomy ?Z90.49 - Acquired absence of other specified parts of digestive tract (ICD-10) History of hysterectomy ?Z90.710 - Acquired absence of both cervix and uterus (ICD-10) Social History Smoking status: Current every day smoker Exam Narrative Exam Narrative: Gen.: Awake, alert, in no distress Head: Normocephalic, atraumatic ENT: Moist mucous membranes Respiratory: Speaks in full sentences, oxygen by nasal cannula with inspiratory and expiratory wheezing globally Cardio: Regular rate and rhythm Extremities: Moves extremities equally, 2+ nonpitting edema to the bilateral lower extremities Psych: Normal mood and affect Neuro: No focal neuro deficit Skin: Warm, dry, intact Constitutional Vital Signs, click to edit/add: Last Vital Signs Temp 99.6 F 09/10/23 13:55 Pulse 108 H 09/10/23 14:45 Resp 17 09/10/23 14:45 BP 106/58 09/10/23 14:16 Pulse Ox 92 L 09/10/23 14:45 O2 Del Method Nasal Cannula 09/10/23 14:23 O2 Flow Rate 6 09/10/23 14:23 Course Vital Signs Vital signs: Vital Signs Temperature 99.6 F 09/10/23 13:55 Pulse Rate 98 H 09/10/23 13:55 Respiratory Rate 22 09/10/23 13:55 Blood Pressure 98/40 L 09/10/23 13:55 Pulse Oximetry 83 L 09/10/23 13:55 Oxygen Delivery Method Nasal Cannula 09/10/23 13:55 Oxygen Delivery Flow Rate 2 09/10/23 13:55 Temperature 99.6 F 09/10/23 13:55 Pulse Rate 108 H 09/10/23 14:45 Respiratory Rate 17 09/10/23 14:45 Blood Pressure 106/58 09/10/23 14:16 Pulse Oximetry 92 L 09/10/23 14:45 Oxygen Delivery Method Nasal Cannula 09/10/23 14:23 Oxygen Delivery Flow Rate 6 09/10/23 14:23 MDM - SOB/Dyspnea MDM Narrative Medical decision making narrative: On arrival to the ER, patient was hypoxic on her regular 2 L, she was turned up to 6 L by nasal cannula with improvement, DuoNeb given. I suspect the patient may require Vapotherm, although she is not currently hypoxic and reports improved work of breathing at this time. Labs are overall improved from previous with no leukocytosis, normal troponin and BNP. Respiratory panel is positive for influenza A. Patient also given IV fluids with improvement of blood pressure, blood cultures were obtained and Zosyn, vancomycin were given for antibiotic coverage. Patient given Tamiflu for influenza A. Discussed with Dr. Desouza, we will admit to ICU for observation, stable at time of admission. Medical Records Attestation: I reviewed the patient's medical records. Lab Data Attestation: I reviewed the patient's lab results. Labs: Lab Results 09/10/23 09/10/23 Range/Units 14:05 14:22 WBC 10.8 (4.0-11.0) 10^3/uL RBC 5.21 (4.20-5.40) 10^6/uL Hgb 15.3 (12.0-16.0) g/dL Hct 48.5 H (36.0-48.0) % MCV 93.1 (81.0-99.0) fL MCH 29.4 (26.7-34.0) pg MCHC 31.5 (29.9-35.2) g/dL RDW 15.0 (11.0-15.0) % Plt Count 131 L (150-450) 10^3/uL MPV 13.0 (9.5-13.5) fL Neut % (Auto) 75.8 H (43.0-75.0) % Lymph % (Auto) 14.9 L (20.5-60.0) % [place] % (Auto) 8.2 (1.7-12.0) % Eos % (Auto) 0.1 L (0.9-7.0) % Baso % (Auto) 0.4 (0.2-2.0) % Neut # (Auto) 8.2 H (1.4-6.5) 10^3/uL Lymph # (Auto) 1.6 (1.2-3.8) 10^3/uL [place] # (Auto) 0.9 H (0.3-0.8) 10^3/uL Eos # (Auto) 0.0 (0.0-0.7) 10^3/uL Baso # (Auto) 0.0 (0.0-0.1) 10^3/uL Abs Immat Gran (auto) 0.07 H (0.00-0.03) 10^3/uL Imm/Tot Granulo (auto) 0.6 H (0.0-0.5) % ESR 66 H (<=30) mm/hr PT 10.4 (9.0-11.6) sec INR 0.98 APTT 32.0 (22.3-36.2) sec VBG pH 7.350 (7.330-7.430) VBG pCO2 51.0 (40.0-52.0) mmHg Sodium 140 (136-145) mmol/L Potassium 4.2 (3.5-5.1) mmol/L Chloride 103 (98-107) mmol/L Carbon Dioxide 32.6 H (21.0-32.0) mmol/L Anion Gap 8.6 BUN 13.0 (7.0-18.0) mg/dL Creatinine 0.79 (0.55-1.02) mg/dL Est GFR ( Amer) >60 (>=60) Est GFR (Non-Af Amer) >60 (>=60) BUN/Creatinine Ratio 16.5 Glucose 255 H (74-106) mg/dL Lactate 1.5 (0.4-2.0) mmol/L Calcium 8.4 L (8.5-10.1) mg/dL Total Bilirubin 0.6 (0.2-1.0) mg/dL AST 18 (15-37) U/L ALT 19 (14-59) U/L Alkaline Phosphatase 61 (46-116) U/L Troponin I High Sens 15.1 (4.0-51.3) pg/mL C-Reactive Protein 10.81 H (<=0.50) mg/dL NT-Pro-B Natriuret Pep 483.0 (<=900.0) pg/mL Total Protein 7.1 (6.4-8.2) g/dL Albumin 2.7 L (3.4-5.0) g/dL Globulin 4.4 g/dL Albumin/Globulin Ratio 0.6 Adenovirus (PCR) Not detected (NOT DETECTE) C. pneumoniae DNA (PCR) Not detected (NOT DETECTE) Coronavirus Type OC43 Not detected (NOT DETECTE) Coronavirus Type HKU1 Not detected (NOT DETECTE) Coronavirus Type 229E Not detected (NOT DETECTE) Coronavirus Type NL63 Not detected (NOT DETECTE) Human Metapneumovir PCR Not detected (NOT DETECTE) Influenza A (H3) PCR Detected A (NOT DETECTE) M. pneumoniae (PCR) Not detected (NOT DETECTE) Parainfluenza PCR Not detected (NOT DETECTE) Parainfluenza 2 (PCR) Not detected (NOT DETECTE) Parainfluenza 3 (PCR) Not detected (NOT DETECTE) Parainfluenza 4 (PCR) Not detected (NOT DETECTE) RSV (RT-PCR) Not detected (NOT DETECTE) Entero/Rhino (PCR) Not detected (NOT DETECTE) SARS-CoV-2 (PCR) Not detected (NOT DETECTE) Bordetella pertussis (PCR) Not detected (NOT DETECTE) B parapertussis DNA PCR Not detected (NOT DETECTE) Influenza Type B (PCR) Not detected (NOT DETECTE) ECG Data Attestation: I personally reviewed and interpreted this ECG as follows: (Normal sinus rhythm at a rate of 87, no acute ST elevation, no ectopy. EKG reviewed by attending physician) ECG interpretation date: 09/10/23 ECG interpretation time: 14:15 Discharge Plan Discharge Chief Complaint: Shortness of Breath/Dyspnea Patient Disposition: Admitted as Observation Time of Disposition Decision: 15:38 Prescriptions / Home Meds: No Action hydrocodone-acetaminophen 5-325 mg tablet 1 tab PO TID PRN (Reason: pain) Qty: 90 0RF hydrocodone-acetaminophen 5-325 mg tablet 1 tab PO TID PRN (Reason: pain) Qty: 90 0RF Rx Instructions: MUST LAST 30 DAYS acetaminophen 500 mg capsule 1,000 mg PO Q6H PRN (Reason: fever or pain) aspirin [Adult Aspirin Regimen] 81 mg tablet,delayed release (DR/EC) 81 mg PO DAILY amitriptyline 25 mg tablet 25 mg PO DAILY insulin glargine [Lantus U-100 Insulin] 100 unit/mL solution 58 unit subcut BID furosemide 40 mg tablet 40 mg PO DAILY lisinopril 20 mg tablet 20 mg PO DAILY pregabalin 300 mg capsule 300 mg PO Q12H insulin aspart U-100 [Novolog FlexPen U-100 Insulin] 100 unit/mL (3 mL) insulin pen 1 sliding scale dose subcut USEASDIRECTD Spiriva Respimat 2.5 mcg/actuation mist 2 inh inhalation DAILY budesonide-formoterol [Symbicort] 160-4.5 mcg/actuation HFA aerosol inhaler 2 inh inhalation BID Trulicity 3 mg/0.5 mL pen injector 3 mg subcut QWEEK diclofenac sodium 75 mg tablet,delayed release (DR/EC) 75 mg PO BID omeprazole 20 mg capsule,delayed release(DR/EC) 20 mg PO DAILY duloxetine 60 mg capsule,delayed release(DR/EC) 60 mg PO BID Qty: 60 0RF levofloxacin 750 mg tablet 750 mg PO DAILY 10 Days Qty: 10 0RF Referrals: Mckayla Blas, [facility] [Primary Care Provider] - 1 week
[2023-09-10] MEDS: 0.9 % SODIUM CHLORIDE 1,000 ML 1000 ML IV (14:14)
[2023-09-10] MEDS: METHYLPREDNISOLONE SOD SUCC PF 125 MG/2 ML VIAL IVP ×2 (14:15→19:59)
[2023-09-10] MEDS: IPRATROPIUM/ALBUTEROL SULFATE 3 ML AMPUL.NEB IH ×2 (14:22→23:37)
[2023-09-10 14:29] LABS: Adenovirus NOT DETECTED (NOT DETECTE); Bordetella parapertussis NOT DETECTED (NOT DETECTE); Coronavirus 229E NOT DETECTED (NOT DETECTE); Coronavirus HKU1 NOT DETECTED (NOT DETECTE); Coronavirus NL63 NOT DETECTED (NOT DETECTE); Coronavirus OC43 NOT DETECTED (NOT DETECTE); Human Metapneumovirus NOT DETECTED (NOT DETECTE); Human Rhinovirus/Enterovirus NOT DETECTED (NOT DETECTE); Influenza B NOT DETECTED (NOT DETECTE); Mycoplasma pneumoniae NOT DETECTED (NOT DETECTE); Parainfluenza Virus 1 NOT DETECTED (NOT DETECTE); Parainfluenza Virus 2 NOT DETECTED (NOT DETECTE); Parainfluenza Virus 3 NOT DETECTED (NOT DETECTE); Parainfluenza Virus 4 NOT DETECTED (NOT DETECTE); Respiratory Syncytial Virus NOT DETECTED (NOT DETECTE); SARS-CoV-2 NOT DETECTED (NOT DETECTE)
--- OUTSIDE RECORDS SUMMARY | 2023-09-10 14:31 | XMS_ITS | CCD ---
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 Role Phone James Desouza Primary Care Provider [phone] JAMES DESOUZA Primary Care Unavailable MARY TAVERAS Admitting Unavailable SHENDGEANISHAHAL Attending Unavailable AICHHOLZ, MCKAYLA Primary Care Unavailable AICHHOLZ, MCKAYLA Referring Unavailable AICHJODIE, MCKAYLA J Primary Care Physician Tico, Stephanie Unavailable GAVIOTA VEGA Attending Unavailable GAVIOTA VEGA Attending Unavailable MANNIE, MCKAYLA Krystal Referring Unavailable Julia VARGAS Attending Unavailable OLE RAMIREZ Attending Unavailable OLE RAMIREZ Consulting Unavailable AICHHOLZ, BATCH ATTENDANT MCKAYLA Primary Care Unavailable OLE RAMIREZ Admitting Unavailable ANTONY SHRESTHA Consulting Unavailable ALONDRA ., UMBERTO Admitting Unavailable ALONDRA ., UMBERTO Attending Unavailable AICHHOLZ, BATCH ATTENDANT MCKAYLA Primary Care Unavailable DR CICI CHING Consulting Unavailable MARYANNE POWER Consulting Unavailable GLENN KERR Consulting Unavailable YOMAIRA KERR Consulting Unavailable HATTIE GOFF Consulting Unavailable ALONDRA ., UMBERTO Consulting Unavailable TICO, STEPHANIE Attending Unavailable TICO, STEPHANIE Consulting Unavailable AICHHOLZ, BATCH ATTENDANT MCKAYLA Primary Care Unavailable TICO, STEPHANIE Admitting Unavailable DR JULIA ACOSTA Admitting Unavailable AICHHOLZ, BATCH ATTENDANT MCKAYLA Primary Care Unavailable REGLA Loera, DR DUMONT Attending Unavailable REGLA Loera, DR DUMONT Consulting Unavailable COLLIN HUERTAS Consulting Unavailable CECILIA KAUFMAN Admitting Unavailable CECILIA KAUFMAN Attending Unavailable AICHHOLZ, BATCH ATTENDANT MCKAYLA Primary Care Unavailable RAFAEL GONGORA Attending Unavailable RAFAEL GONGORA Admitting Unavailable AICHHOLZ, BATCH ATTENDANT MCKAYLA Primary Care Unavailable AICHHOLZ, BATCH ATTENDANT MCKAYLA Admitting Unavailable AICHHOLZ, BATCH ATTENDANT MCKAYLA Primary Care Unavailable AICHHOLZ, BATCH ATTENDANT MCKAYLA Attending Unavailable AICHHOLZ, BATCH ATTENDANT MCKAYLA Consulting Unavailable LAKSHMIPATHY ., NARENDRANATH Attending Anette vailable LAKSHMIPATHY ., NARENDRANATH Consulting Anette vailable LAKSHMIPATHY ., NARENDRANATH Admitting Anette vailable AICHHOLZ, BATCH ATTENDANT MCKAYLA Primary Care Unavailable VALENZUELA ., GIL Consulting Unavailable MORTENSEN ., DR CHAPARRO Aguillon Attending Unavailable MORTENSEN ., DR CHAPARRO Aguillon Admitting Unavailable AICHHOLZ, BATCH ATTENDANT MCKAYLA Primary Care Unavailable VALENZUELA ., GIL Consulting Unavailable MORTENSEN ., DR CHAPARRO Aguillon Admitting Unavailable AICHHOLZ, BATCH ATTENDANT MCKAYLA Primary Care Unavailable MORTENSEN ., DR CHAPARRO Aguillon Attending Unavailable HALKER ., SUBHASH Consulting Unavailable LAKSHMIPATHY ., NARENDRANATH Admitting Anette vailable LAKSHMIPATHY ., NARENDRANATH Attending Anette vailable AICHHOLZ, BATCH ATTENDANT MCKAYLA Primary Care Unavailable MORTENSEN ., DR CHAPARRO Aguillon Attending Unavailable MORTENSEN ., DR CHAPARRO Aguillon Admitting Unavailable VALENZUELA ., GIL Consulting Unavailable AICHOLZ, BATCH ATTENDANT MCKAYLA Primary Care Unavailable VALENZUELA ., GIL Consulting Unavailable MORTENSEN ., DR CHAPARRO Aguillon Attending Unavailable MORTENSEN ., DR CHAPARRO Aguillon Admitting Unavailable AICHHOLZ, BATCH ATTENDANT MCKAYLA Primary Care Unavailable HATTIE BRODERICK Attending Unavailable HATTIE BRODERICK Admitting Unavailable AICHHOLZ, BATCH ATTENDANT MCKAYLA Primary Care Unavailable AICHHOLZ, BATCH ATTENDANT MCKAYLA Admitting Unavailable AICHHOLZ, BATCH ATTENDANT MCKAYLA Consulting Unavailable AICHHOLZ, BATCH ATTENDANT MCKAYLA Primary Care Unavailable AICHHOLZ, BATCH ATTENDANT MCKAYLA Attending Unavailable AICHHOLZ, BATCH ATTENDANT MCKAYLA Primary Care Unavailable MISC, DR LESLIE Admitting Unavailable MISC, DR LESLIE Attending Unavailable MISC, DOCTOR Consulting Unavailable DIAB ., MARIANO Admitting Unavailable DIAB ., MARIANO Attending Unavailable DIAB ., MARIANO Consulting Unavailable AICHHOLZ, BATCH ATTENDANT MCKAYLA Primary Care Unavailable RICCO PICKARD Consulting Unavailable AICHHOLZ, BATCH ATTENDANT MCKAYLA Admitting Unavailable AICHHOLZ, BATCH ATTENDANT MCKAYLA Primary Care Unavailable AICHHOLZ, BATCH ATTENDANT MCKAYLA Attending Unavailable AICHHOLZ, BATCH ATTENDANT MCKAYLA Consulting Unavailable MAGDIEL, DR PATRICIA Joya Consulting Unavailable CECILIA KAUFMAN Attending Unavailable CECILIA KAUFMAN Admitting Unavailable MAGDIEL, DR PATRICIA Joya Consulting Unavailable AICHHOLZ, BATCH ATTENDANT MCKAYLA Primary Care Unavailable CECILIA KAUFMAN Consulting Unavailable FESTUS ., DR CHAPARRO Aguillon Attending Unavailable FESTUS ., DR CHAPARRO Aguillon Consulting Unavailable FESTUS ., DR CHAPARRO Aguillon Admitting Unavailable AICHHOLZ, BATCH ATTENDANT MCKAYLA Primary Care Unavailable HATTIE BRODERICK Attending Unavailable HATTIE BRODERICK Consulting Unavailable HATTIE BRODERICK Admitting Unavailable AICHHOLZ, BATCH ATTENDANT MCKAYLA Primary Care Unavailable HATTIE BAUTISTA Unavailable AICHHOLZ, BATCH ATTENDANT MCKAYLA Admitting Unavailable AICHHOLZ, BATCH ATTENDANT MCKAYLA Attending Unavailable AICHHOLZ, BATCH ATTENDANT MCKAYLA Consulting Unavailable AICHHOLZ, BATCH ATTENDANT MCKAYLA Primary Care Unavailable AICHHOLZ, MCKAYLA Attending Unavailable Ty Amin MD Primary Care Provider Allergies Allergy Classification Reported Allergen(s) Allergy Type Date of Onset Reaction(s) Facility (1 source) No Known Medication Allergies; 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: [No Known Medication Allergies] Propensity to adverse reactions (disorder) [facility] Repository Medications Current Medications Medication Drug Class(es) Dates Sig (Normalized) Sig (Original) acetaminophen 325 mg / HYDROcodone bitartrate 5 mg oral tablet (6 sources) Opioid Agonist Start: 02-06-2022 acetaminophen-hydr ocodone 325 mg-5 mg oral tablet Refill(s) 0 Start Date: 02/06/22 Status: Ordered HYDROcodone-acet aminophen ([place]) 5-325 MG tablet 1 tablet 3 (three) times a day as needed for severe pain. 0 Active take 1 tablet by vandana twice daily as needed [place] 5-325 MG 1 tablet as needed Orally [...] every week ergocalciferol (Vitamin D-2) 1.25 MG (93417 UT) capsule Take 1.25 mg by mouth [...] 02-06-2022 Chronic Other aftercare (1 source) Other manager intermediate (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 therapy; 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: [OTH ASSISTED CURRENT DRUG THERAPY] Onset: 12-05-2022 Episodic Other aftercare (1 source) senior care (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; 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: [ASSISTED CURRENT USE OF ASPIRIN] Onset: 12-05-2022 Episodic Other aftercare (1 source) senior care (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; 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: [ASSISTED CURRENT USE OF INSULIN] Onset: 12-05-2022 Episodic [...] ocumentation in Social History. 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 Comment on above: Performed By: #### C BC #### [facility] [address] [place] [address] Dr. Ashlie Hills Basophils/100 WBC (Bld) 0.1 % Critically low 0.2-2.0 [facility] Comment on above: Performed By: #### C BC #### [facility] [address] [place] [address] Dr. Ashlie Hills EO # 0.0 103/ul Normal 0.0-0.7 [facility] Comment on above: Performed By: #### C BC #### [facility] [address] [place] [address] Dr. Ashlie Hills Eosinophils/100 WBC (Bld) 0.0 % Critically low 0.9-7.0 [facility] Comment on above: Performed By: #### C BC #### [facility] [address] [place] [address] Dr. Ashlie Hills Erythrocyte distribution width (RBC) [Ratio] 14.9 % Normal 11.0-15.0 [facility] Comment on above: Performed By: #### C BC #### [facility] [address] [place] [address] Dr. Ashlie Hills Hematocrit (Bld) [Volume fraction] 46.2 % Normal 36.0-48.0 [facility] Comment on above: Performed By: #### C BC #### [facility] [address] [place] [address] Dr. Ashlie Hills Hemoglobin (Bld) [Mass/Vol] 14.7 g/dL Normal 12.0-16.0 [facility] Comment on above: Performed By: #### C BC #### [facility] [address] [place] [address] Dr. Ashlie Hills IG # 0.06 10e3/ul Critically high 0.00-0.03 [facility] Comment on above: Performed By: #### C BC #### [facility] [address] [address] [address] Ashlie Hills IG % 0.4 % Normal 0.0-0.5 [facility] Comment on above: Performed By: #### C BC #### [facility] [address] [place] [address] Dr. Ashlie Hills LYMPH # 1.3 103/ul Normal 1.2-3.8 [facility] Comment on above: Performed By: #### C BC #### [facility] [address] [place] [address] Dr. Ashlie Hills Lymphocytes/100 WBC (Bld) 9.4 % Critically low 20.5-60.0 [facility] Comment on above: Performed By: #### C BC #### [facility] [address] [place] [address] Dr. Ashlie Hills MANUAL DIFF REQ NO Normal [facility] Comment on above: Performed By: #### C BC #### [facility] [address] [place] [address] Dr. Ashlie Hills MCH (RBC) [Entitic mass] 28.4 pg Normal 26.7-34.0 [facility] Comment on above: Performed By: #### C BC #### [facility] [address] [place] [address] Dr. Ashlie Hills MCHC (RBC) [Mass/Vol] 31.8 g/dL Normal 29.9-35.2 [facility] Comment on above: Performed By: #### C BC #### [facility] [address] [place] [address] Dr. Ashlie Hills MCV (RBC) [Entitic vol] 89.4 fL Normal 81.0-99.0 [facility] Comment on above: Performed By: #### C BC #### [facility] [address] [place] [address] Dr. Ashlie Hills MONO # 0.5 103/ul Normal 0.3-0.8 [facility] Comment on above: Performed By: #### C BC #### [facility] [address] [place] [address] Dr. Ashlie Hills Monocytes/100 WBC (Bld) 3.4 % Normal 1.7-12.0 [facility] Comment on above: Performed By: #### C BC #### [facility] [address] [place] [address] Dr. Ashlie Hills NEUT # 11.8 103/ul Critically high 1.4-6.5 [facility] Comment on above: Performed By: #### C BC #### [facility] [address] [place] [address] Dr. Ashlie Hills Neutrophils/100 WBC (Bld) 86.7 % Critically high 43.0-75.0 [facility] Comment on above: Performed By: #### C BC #### [facility] [address] [place] [address] Dr. Ashlie Hills Platelet mean volume (Bld) [Entitic vol] 12.6 fL Normal 9.5-13.5 [facility] Comment on above: Performed By: #### C BC #### [facility] [address] [place] [address] Dr. Ashlie Hills PLT 133 103/ul Critically low 150-450 [facility] Comment on above: Performed By: #### C BC #### [facility] [address] [place] [address] Dr. Ashlie Hills RBC 5.17 106/ul Normal 4.20-5.40 [facility] Comment on above: Performed By: #### C BC #### [facility] [address] [place] [address] Dr. Ashlie Hills WBC 13.6 103/ul Critically high 4.0-11.0 [facility] Comment on above: Performed By: #### C BC #### [facility] [address] [place] [address] Dr. Ashlie Hills MAGNESIUMon 12-06-2022 Magnesium [Mass/Vol] 2.2 mg/dL Normal 1.8-2.4 [facility] Comment on above: Performed By: #### I NFLUAB #### [facility] [address] [place] [address] Dr. Ashlie Hills POINT OF CARE GLUCOSEon 11-08 Glucose [Mass/Vol] 340 mg/dL Critically high -106 [facility] Comment on above: Performed By: #### P OCGLUC #### [facility] [address] [place] [address] Dr. Ashlie Hills Glucose [Mass/Vol] 276 mg/dL Critically high [facility]106 [facility] Comment on above: Performed By: #### C BC #### [facility] [address] [place] [address] Dr. Ashlie Hills Glucose [Mass/Vol] 333 mg/dL Critically high [facility]106 [facility] Comment on above: Performed By: #### C BC #### [facility] [address] [place] [address] Dr. Ashlie Hills PROF CHEM 8 (BAS METB)on Anion gap [Moles/Vol] 10.9 mmol/L Normal [facility] Comment on above: Performed By: #### I NFLUAB #### [facility] [address] [place] [address] Dr. Ashlie Hills Calcium [Mass/Vol] 9.3 mg/dL Normal 8.5-10.1 [facility] Comment on above: Performed By: #### I NFLUAB #### [facility] [address] [place] [address] Dr. Ashlie Hills Chloride [Moles/Vol] 103 mmol/L Normal 98-107 [facility] Comment on above: Performed By: #### I NFLUAB #### [facility] [address] [place] [address] Dr. Ashlie Hills CO2 [Moles/Vol] 31.2 mmol/L Normal 21.0-32.0 [facility] Comment on above: Performed By: #### I NFLUAB #### [facility] [address] [place] [address] Dr. Ashlie Hills Creatinine [Mass/Vol] 0.96 mg/dL Normal 0.55-1.02 [facility] Comment on above: Performed By: #### I NFLUAB #### [facility] [address] [address] [address] Ashlie Hills EGFR-AF SURINAMESE >60 Normal >=60 [facility] Comment on above: Performed By: #### I NFLUAB #### [facility] [address] [place] [address] Dr. Ashlie Hills EGFR-NON AF SURINAMESE >60 Normal >=60 [facility] Comment on above: Performed By: #### I NFLUAB #### [facility] [address] [place] [address] Dr. Ashlie Hills Glucose [Mass/Vol] 288 mg/dL Critically high 74-106 [facility] Comment on above: Performed By: #### I NFLUAB #### [facility] [address] [place] [address] Dr. sAhlie Hills Potassium [Moles/Vol] 5.1 mmol/L Normal 3.5-5.1 [facility] Comment on above: Performed By: #### I NFLUAB #### [facility] [address] [place] [address] Dr. Ashlie Hills Sodium [Moles/Vol] 140 mmol/L Normal 136-145 [facility] Comment on above: Performed By: #### I NFLUAB #### [facility] [address] [place] [address] Dr. Ashlie Hills Urea nitrogen [Mass/Vol] 30.0 mg/dL Critically high 7.0-18.0 [facility] Comment on above: Performed By: #### I NFLUAB #### [facility] [address] [place] [address] Dr. Ashlie Hills Urea nitrogen/Creatinine [Mass ratio] 31.2 mg/mg Normal [facility] Comment on above: Performed By: #### I NFLUAB #### [facility] [address] [place] [address] Dr. Ashlie Hills CBC AUTO DIFFon 12-05-2022 BASO # 0.0 103/ul Normal 0.0-0.1 [facility] Comment on above: Performed By: #### C BC #### [facility] [address] [place] [address] Dr. Ashlie Hills Basophils/100 WBC (Bld) 0.4 % Normal 0.2-2.0 [facility] Comment on above: Performed By: #### C BC #### [facility] [address] [place] [address] Dr. Ashlie Hills EO # 0.0 103/ul Normal 0.0-0.7 [facility] Comment on above: Performed By: #### C BC #### [facility] [address] [place] [address] Dr. Ashlie Hills Eosinophils/100 WBC (Bld) 0.0 % Critically low 0.9-7.0 [facility] Comment on above: Performed By: #### C BC #### [facility] [address] [place] [address] Dr. Ashlie Hills Erythrocyte distribution width (RBC) [Ratio] 14.8 % Normal 11.0-15.0 [facility] Comment on above: Performed By: #### C BC #### [facility] [address] [place] [address] Dr. Ashlei Hills Hematocrit (Bld) [Volume fraction] 49.9 % Critically high 36.0-48.0 [facility] Comment on above: Performed By: #### C BC #### [facility] [address] [place] [address] Dr. Ashlie Hills Hemoglobin (Bld) [Mass/Vol] 15.7 g/dL Normal 12.0-16.0 [facility] Comment on above: Performed By: #### C BC #### [facility] [address] [place] [address] Dr. Ashlie Hills IG # 0.04 10e3/ul Critically high 0.00-0.03 [facility] Comment on above: Performed By: #### C BC #### [facility] [address] [place] [address] Dr. Ashlie Hills IG % 0.5 % Normal 0.0-0.5 [facility] Comment on above: Performed By: #### C BC #### [facility] [address] [address] [address] Ashlie Hills LYMPH # 1.1 103/ul Critically low 1.2-3.8 [facility] Comment on above: Performed By: #### C BC #### [facility] [address] [place] [address] Dr. Ashlie Hills Lymphocytes/100 WBC (Bld) 12.7 % Critically low 20.5-60.0 [facility] Comment on above: Performed By: #### C BC #### [facility] [address] [place] [address] Dr. Ashlie Hills MANUAL DIFF REQ NO Normal [facility] Comment on above: Performed By: #### C BC #### [facility] [address] [place] [address] Dr. Ashlie Hills MCH (RBC) [Entitic mass] 28.1 pg Normal 26.7-34.0 [facility] Comment on above: Performed By: #### C BC #### [facility] [address] [place] [address] Dr. Ashlie Hills MCHC (RBC) [Mass/Vol] 31.5 g/dL Normal 29.9-35.2 [facility] Comment on above: Performed By: #### C BC #### [facility] [address] [place] [address] Dr. Ashlie Hills MCV (RBC) [Entitic vol] 89.3 fL Normal 81.0-99.0 [facility] Comment on above: Performed By: #### C BC #### [facility] [address] [place] [address] Dr. Ashlie Hills MONO # 0.1 103/ul Critically low 0.3-0.8 [facility] Comment on above: Performed By: #### C BC #### [facility] [address] [place] [address] Dr. Ahslie Hills Monocytes/100 WBC (Bld) 1.3 % Critically low 1.7-12.0 [facility] Comment on above: Performed By: #### C BC #### [facility] [address] [place] [address] Dr. Ashlie Hills NEUT # 7.2 103/ul Critically high 1.4-6.5 [facility] Comment on above: Performed By: #### C BC #### [facility] [address] [place] [address] Dr. Ashlie Hills Neutrophils/100 WBC (Bld) 85.1 % Critically high 43.0-75.0 [facility] Comment on above: Performed By: #### C BC #### [facility] [address] [place] [address] Dr. Ashlie Hills Platelet mean volume (Bld) [Entitic vol] 12.2 fL Normal 9.5-13.5 [facility] Comment on above: Performed By: #### C BC #### [facility] [address] [place] [address] Dr. Ashlie Hills PLT 116 103/ul Critically low 150-450 [facility] Comment on above: Performed By: #### C BC #### [facility] [address] [place] [address] Dr. Ashlie Hills RBC 5.59 106/ul Critically high 4.20-5.40 [facility] Comment on above: Performed By: #### C BC #### [facility] [address] [place] [address] Dr. Ashlie Hills WBC 8.5 103/ul Normal 4.0-11.0 [facility] Comment on above: Performed By: #### C BC #### [facility] [address] [place] [address] Dr. Ashlie Hills CTA CHEST WO W [...] by: HATTIE GOFF Date: 2022-12-05 01:[address] [facility] MAGNESIUMon 12-05-2022 Magnesium [Mass/Vol] 2.1 mg/dL Normal 1.8-2.4 [facility] Comment on above: Performed By: #### P OCGLUC #### [facility] [address] [address] [address] Ashlie Hills POINT OF CARE GLUCOSEon 11-08 Glucose [Mass/Vol] 293 mg/dL Critically high 74-106 [facility] Comment on above: Performed By: #### P OCGLUC #### [facility] [address] [address] [address] Ashlie Hills Glucose [Mass/Vol] 269 mg/dL Critically high 74-106 [facility] Comment on above: Performed By: #### P OCGLUC #### [facility] [address] [place] [address] Dr. Ashlie Hills Glucose [Mass/Vol] 223 mg/dL Critically high 74-106 [facility] Comment on above: Performed By: #### C VDAGS #### [facility] [address] [address] [address] Ashlie Hills PROF CHEM 8 (BAS METB)on Anion gap [Moles/Vol] 11.6 mmol/L Normal [facility] Comment on above: Performed By: #### P OCGLUC #### [facility] [address] [place] [address] Dr. Ashlie Hills Calcium [Mass/Vol] 9.2 mg/dL Normal 8.5-10.1 [facility] Comment on above: Performed By: #### P OCGLUC #### [facility] [address] [place] [address] Dr. Ashlie Hills Chloride [Moles/Vol] 102 mmol/L Normal 98-107 [facility] Comment on above: Performed By: #### P OCGLUC #### [facility] [address] [place] [address] Dr. Ashlie Hills CO2 [Moles/Vol] 28.7 mmol/L Normal 21.0-32.0 [facility] Comment on above: Performed By: #### P OCGLUC #### [facility] [address] [place] [address] Dr. Ashlie Hills Creatinine [Mass/Vol] 1.04 mg/dL Critically high 0.55-1.02 [facility] Comment on above: Performed By: #### P OCGLUC #### [facility] [address] [place] [address] Dr. Ashlie Hills EGFR-AF SURINAMESE >60 Normal >=60 [facility] Comment on above: Performed By: #### P OCGLUC #### [facility] [address] [place] [address] Dr. Ashlie Hills EGFR-NON AF SURINAMESE 56 mL/min/1.73m2 Critically low >=60 [facility] Comment on above: Performed By: #### P OCGLUC #### [facility] [address] [address] [address] Ashlie Hills Glucose [Mass/Vol] 231 mg/dL Critically high 74-106 [facility] Comment on above: Performed By: #### P OCGLUC #### [facility] [address] [address] [address] Ashlie Hills Potassium [Moles/Vol] 4.3 mmol/L Normal 3.5-5.1 [facility] Comment on above: Performed By: #### P OCGLUC #### [facility] [address] [address] [address] Ashlie Hills Sodium [Moles/Vol] 138 mmol/L Normal 136-145 [facility] Comment on above: Performed By: #### P OCGLUC #### [facility] [address] [address] [address] Ashlie Hills Urea nitrogen [Mass/Vol] 17.0 mg/dL Normal 7.0-18.0 [facility] Comment on above: Performed By: #### P OCGLUC #### [facility] [address] [place] [address] Dr. Ashlie Hills Urea nitrogen/Creatinine [Mass ratio] 16.3 mg/mg Normal [facility] Comment on above: Performed By: #### P OCGLUC #### [facility] [address] [address] [address] Ashlie Hills RESPIRATORY PANEL PLUSon Adenovirus Not detected Normal NOT DETECTED [facility] Comment on above: Performed By: #### C VDAGS #### [facility] [address] [place] [address] Dr. Ashlie Hills B. Parapertusis Not detected Normal NOT DETECTED [facility] Comment on above: Performed By: #### C VDAGS #### [facility] [address] [place] [address] Dr. Ashlie Hills B. Pertussis Not detected Normal NOT DETECTED [facility] Comment on above: Performed By: #### C VDAGS #### [facility] [address] [address] [address] Ashlie Hills Chlamydia Pneumoniae Not detected Normal NOT DETECTED [facility] Comment on above: Performed By: #### C VDAGS #### [facility] [facility] [address] [place] [address] Dr. Ashlie Hills Coronavirus 229E Not detected Normal NOT DETECTED [facility] Comment on above: Performed By: #### C VDAGS #### [facility] [address] [place] [address] Dr. Ashlie Hills Coronavirus HKU1 Not detected Normal NOT DETECTED [facility] Comment on above: Performed By: #### C VDAGS #### [facility] [address] [place] [address] Dr. Ashlie Hills Coronavirus NL63 Not detected Normal NOT DETECTED [facility] Comment on above: Performed By: #### C VDAGS #### [facility] [address] [place] [address] Dr. Ashlie Hills Coronavirus OC43 Not detected Normal NOT DETECTED [facility] Comment on above: Performed By: #### C VDAGS #### [facility] [address] [place] [address] Dr. Ashlie Hills Influenza A H1 Not detected Normal NOT DETECTED [facility] Comment on above: Performed By: #### C VDAGS #### [facility] [address] [place] [address] Dr. Ashlie Hills Influenza A H1 2009 Not detected Normal NOT DETECTED [facility] Comment on above: Performed By: #### C VDAGS #### [facility] [address] [place] [address] Dr. Ashlie Hills Influenza A H3 Not detected Normal NOT DETECTED [facility] Comment on above: Performed By: #### C VDAGS #### [facility] [address] [place] [address] Dr. Ashlie Hills Influenza B Not detected Normal NOT DETECTED [facility] Comment on above: Performed By: #### C VDAGS #### [facility] [address] [address] [address] Ashlie Hills Metapneumovirus Not detected Normal NOT DETECTED [facility] Comment on above: Performed By: #### C VDAGS #### [facility] [address] [address] [address] Ashlie Hills Mycoplas. Pneumoniae Not detected Normal NOT DETECTED [facility] Comment on above: Performed By: #### C VDAGS #### [facility] [address] [place] [address] Dr. Ashlie Hills Parainfluenza 1 Not detected Normal NOT DETECTED [facility] Comment on above: Performed By: #### C VDAGS #### [facility] [address] [place] [address] Dr. Ashlie Hills Parainfluenza 2 Not detected Normal NOT DETECTED [facility] Comment on above: Performed By: #### C VDAGS #### [facility] [address] [place] [address] Dr. Ashlie Hills Parainfluenza 3 Detected Abnormal NOT DETECTED [facility] Comment on above: Performed By: #### C VDAGS #### [facility] [address] [place] [address] Dr. Ashlie Hills Parainfluenza 4 Not detected Normal NOT DETECTED [facility] Comment on above: Performed By: #### C VDAGS #### [facility] [address] [place] [address] Dr. Ashlie Hills Rhino/Enterovirus Not detected Normal NOT DETECTED [facility] Comment on above: Performed By: #### C VDAGS #### [facility] [address] [place] [address] Dr. Ashlie DE PAZ Header 1 RESPIRATORY PANEL: VIRUSES Normal [facility] Comment on above: Performed By: #### C VDAGS #### [facility] [address] [place] [address] Dr. Ashlie DE PAZ Header 2 RESPIRATORY PANEL: BACTERIA Normal [facility] Comment on above: Performed By: #### C VDAGS #### [facility] [address] [place] [address] Dr. Ashlie Hills RSV Not detected Normal NOT DETECTED [facility] Comment on above: Performed By: #### C VDAGS #### [facility] [address] [place] [address] Dr. Ashlie Hills SARS-CoV-2 (COVID-19) RNA MADDY+probe Ql (Unsp spec) Not detected Normal NOT DETECTED [facility] Comment on above: Performed By: #### C VDAGS #### [facility] [address] [place] [address] Dr. Ashlie Hills XR CHEST 1 Von [...] MARYANNE POWER Date: 2022-12-04 22:23 Normal [facility] BLOOD GASES BTYon 12-04-2022 02 MODE ROOM AIR Normal [facility] Comment on above: Performed By: #### C BC #### [facility] [address] [place] [address] Dr. Ashlie Hills ALLENS TEST Positive Normal [facility] Comment on above: Performed By: #### C BC #### [facility] [address] [place] [address] Dr. Ashlie Hills Base excess Calc (Bld) [Moles/Vol] 5.4 mmol/L Critically high -2.0-2.0 [facility] Comment on above: Performed By: #### C BC #### [facility] [address] [place] [address] Dr. Ashlie Hills BIPAP PRESSURE Normal [facility] Comment on above: Performed By: #### C BC #### [facility] [address] [place] [address] Dr. Ashlie Hills CPAP Normal [facility] Comment on above: Performed By: #### C BC #### [facility] [address] [address] [address] Ashlie Hills FIO2 [address] [facility] Comment on above: Performed By: #### C BC #### [facility] [address] [place] [address] Dr. Ashlie Hills HCO3 (Bld) [Moles/Vol] 30.8 mmol/L Critically high 22.0-26.0 [facility] Comment on above: Performed By: #### C BC #### [facility] [address] [place] [address] Dr. Ashlie Hills LPM Normal [facility] Comment on above: Performed By: #### C BC #### [facility] [address] [place] [address] Dr. Ashlie Hills MINUTE VOLUME Normal [facility] Comment on above: Performed By: #### C BC #### [facility] [address] [place] [address] Dr. Ashlie Hills Oxygen (Bld) [Partial pressure] 46.3 mm[Hg] Critically low 80.0-100.0 [facility] Comment on above: Performed By: #### C BC #### [facility] [address] [place] [address] Dr. Ashlie Hills Oxygen saturation in Blood 83.9 % Critically low 95.0-100.0 [facility] Comment on above: Performed By: #### C BC #### [facility] [address] [place] [address] Dr. Ashlie Hills PCO2 54.2 mmHg Critically high 35.0-45.0 [facility] Comment on above: Performed By: #### C BC #### [facility] [address] [place] [address] Dr. Ashlie Hills PEEP [facility] Comment on above: Performed By: #### C BC #### [facility] [address] [place] [address] Dr. Ashlie Hills pH (Bld) 7.363 [pH] Normal 7.350-7.450 [facility] Comment on above: Performed By: #### C BC #### [facility] [address] [place] [address] Dr. Ashlie Hills [facility] Comment on above: Performed By: #### C BC #### [facility] [address] [place] [address] Dr. Ashlie Hills [facility] Comment on above: Performed By: #### C BC #### [facility] [address] [place] [address] Dr. Ashlie Hills PUNCTURE SITE LR [facility] Comment on above: Performed By: #### C BC #### [facility] [address] [place] [address] Dr. Ashlie Hills [facility] Comment on above: Performed By: #### C BC #### [facility] [address] [place] [address] Dr. Ashlie Hills [facility] Comment on above: Performed By: #### C BC #### [facility] [address] [place] [address] Dr. Ashlie Hills [facility] Comment on above: Performed By: #### C BC #### [facility] [address] [place] [address] Dr. Ashlie Hills BNPon 12-04-2022 Natriuretic peptide B (Bld) [Mass/Vol] 76.0 pg/mL Normal <=900.0 [facility] Comment on above: Performed By: #### P OCGLUC #### [facility] [address] [place] [address] Dr. Ashlie Hills CBC AUTO DIFFon 12-04-2022 BASO # 0.1 103/ul Normal 0.0-0.1 [facility] Comment on above: Performed By: #### C BC #### [facility] [address] [place] [address] Dr. Ashlie Hills Basophils/100 WBC (Bld) 0.6 % Normal 0.2-2.0 [facility] Comment on above: Performed By: #### C BC #### [facility] [address] [place] [address] Dr. Ashlie Hills EO # 0.2 103/ul Normal 0.0-0.7 [facility] Comment on above: Performed By: #### C BC #### [facility] [address] [place] [address] Dr. Ashlie Hills Eosinophils/100 WBC (Bld) 1.9 % Normal 0.9-7.0 [facility] Comment on above: Performed By: #### C BC #### [facility] [address] [place] [address] Dr. Ashlie Hills Erythrocyte distribution width (RBC) [Ratio] 15.0 % Normal 11.0-15.0 [facility] Comment on above: Performed By: #### C BC #### [facility] [address] [place] [address] Dr. Ashlie Hills Hematocrit (Bld) [Volume fraction] 49.1 % Critically high 36.0-48.0 [facility] Comment on above: Performed By: #### C BC #### [facility] [address] [place] [address] Dr. Ashlie Hills Hemoglobin (Bld) [Mass/Vol] 15.6 g/dL Normal 12.0-16.0 [facility] Comment on above: Performed By: #### C BC #### [facility] [address] [place] [address] Dr. Ashlie Hills IG # 0.02 10e3/ul Normal 0.00-0.03 [facility] Comment on above: Performed By: #### C BC #### [facility] [address] [place] [address] Dr. Ashlie Hills IG % 0.2 % Normal 0.0-0.5 [facility] Comment on above: Performed By: #### C BC #### [facility] [address] [place] [address] Dr. Ashlie Hills LYMPH # 2.8 103/ul Normal 1.2-3.8 [facility] Comment on above: Performed By: #### C BC #### [facility] [address] [place] [address] Dr. Ashlie Hills Lymphocytes/100 WBC (Bld) 29.9 % Normal 20.5-60.0 [facility] Comment on above: Performed By: #### C BC #### [facility] [address] [place] [address] Dr. Ashlie Hills MANUAL DIFF REQ NO Normal [facility] Comment on above: Performed By: #### C BC #### [facility] [address] [place] [address] Dr. Ashlie Hills MCH (RBC) [Entitic mass] 28.5 pg Normal 26.7-34.0 [facility] Comment on above: Performed By: #### C BC #### [facility] [address] [place] [address] Dr. Ashlie Hills MCHC (RBC) [Mass/Vol] 31.8 g/dL Normal 29.9-35.2 [facility] Comment on above: Performed By: #### C BC #### [facility] [address] [place] [address] Dr. Ashlie Hills MCV (RBC) [Entitic vol] 89.8 fL Normal 81.0-99.0 [facility] Comment on above: Performed By: #### C BC #### [facility] [address] [place] [address] Dr. Ashlie Hills MONO # 1.0 103/ul Critically high 0.3-0.8 [facility] Comment on above: Performed By: #### C BC #### [facility] [address] [place] [address] Dr. Ashlie Hills Monocytes/100 WBC (Bld) 10.6 % Normal 1.7-12.0 [facility] Comment on above: Performed By: #### C BC #### [facility] [address] [place] [address] Dr. Ashlie Hills NEUT # 5.3 103/ul Normal 1.4-6.5 [facility] Comment on above: Performed By: #### C BC #### [facility] [address] [place] [address] Dr. Ashlie Hills Neutrophils/100 WBC (Bld) 56.8 % Normal 43.0-75.0 [facility] Comment on above: Performed By: #### C BC #### [facility] [address] [place] [address] Dr. Ashlie Hills Platelet mean volume (Bld) [Entitic vol] 12.5 fL Normal 9.5-13.5 [facility] Comment on above: Performed By: #### C BC #### [facility] [address] [place] [address] Dr. Ashlie Hills PLT 109 103/ul Critically low 150-450 [facility] Comment on above: Performed By: #### C BC #### [facility] [address] [place] [address] Dr. Ashlie Hills RBC 5.47 106/ul Critically high 4.20-5.40 [facility] Comment on above: Performed By: #### C BC #### [facility] [address] [place] [address] Dr. Ashlie Hills WBC 9.4 103/ul Normal 4.0-11.0 [facility] Comment on above: Performed By: #### C BC #### [facility] [address] [place] [address] Dr. Ashlie Hills PROF 14(COMP METB)on 023 Albumin [Mass/Vol] 2.9 g/dL Critically low 3.4-5.0 [facility] Comment on above: Performed By: #### C BC #### [facility] [address] [place] [address] Dr. Ashlie Hills Albumin/Globulin [Mass ratio] 0.6 {ratio} Normal [facility] Comment on above: Performed By: #### C BC #### [facility] [address] [place] [address] Dr. Ashlie Hills ALP [Catalytic activity/Vol] 64 U/L Normal 46-116 [facility] Comment on above: Performed By: #### C BC #### [facility] [address] [place] [address] Dr. Ashlie Hills ALT [Catalytic activity/Vol] 16 U/L Normal 14-59 [facility] Comment on above: Performed By: #### C BC #### [facility] [address] [address] [address] Ashlie Hills Anion gap [Moles/Vol] 9.6 mmol/L Normal [facility] Comment on above: Performed By: #### C BC #### [facility] [address] [address] [address] Ashlie Hills AST [Catalytic activity/Vol] 16 U/L Normal 15-37 [facility] Comment on above: Performed By: #### C BC #### [facility] [address] [address] [address] Ashlie Hills Bilirubin [Mass/Vol] 0.5 mg/dL Normal 0.2-1.0 [facility] Comment on above: Performed By: #### C BC #### [facility] [address] [place] [address] Dr. Ashlie Hills Calcium [Mass/Vol] 8.7 mg/dL Normal 8.5-10.1 [facility] Comment on above: Performed By: #### C BC #### [facility] [address] [place] [address] Dr. Ashlie Hills Chloride [Moles/Vol] 103 mmol/L Normal 98-107 [facility] Comment on above: Performed By: #### C BC #### [facility] [address] [place] [address] Dr. Ashlie Hills CO2 [Moles/Vol] 30.7 mmol/L Normal 21.0-32.0 [facility] Comment on above: Performed By: #### C BC #### [facility] [address] [address] [address] Ashlie Hills Creatinine [Mass/Vol] 0.96 mg/dL Normal 0.55-1.02 [facility] Comment on above: Performed By: #### C BC #### [facility] [address] [address] [address] Ashlie Hills EGFR-AF SURINAMESE >60 Normal >=60 [facility] Comment on above: Performed By: #### C BC #### [facility] [address] [address] [address] Ashlie Hills EGFR-NON AF SURINAMESE >60 Normal >=60 [facility] Comment on above: Performed By: #### C BC #### [facility] [address] [address] [address] Aslhie Hills Globulin (S) [Mass/Vol] 4.7 g/dL Normal [facility] Comment on above: Performed By: #### C BC #### [facility] [address] [address] [address] Ashlie Hills Glucose [Mass/Vol] 170 mg/dL Critically high 74-106 [facility] Comment on above: Performed By: #### C BC #### [facility] [address] [address] [address] Ashlie Hills Potassium [Moles/Vol] 4.3 mmol/L Normal 3.5-5.1 [facility] Comment on above: Performed By: #### C BC #### [facility] [address] [address] [address] Ashlie Hills Protein [Mass/Vol] 7.6 g/dL Normal 6.4-8.2 [facility] Comment on above: Performed By: #### C BC #### [facility] [address] [address] [address] Ashlie Hills Sodium [Moles/Vol] 139 mmol/L Normal 136-145 [facility] Comment on above: Performed By: #### C BC #### [facility] [address] [address] [address] Ashlie Hills Urea nitrogen [Mass/Vol] 16.0 mg/dL Normal 7.0-18.0 [facility] Comment on above: Performed By: #### C BC #### [facility] [address] [address] [address] Ashlie Hills Urea nitrogen/Creatinine [Mass ratio] 16.7 mg/mg Normal [facility] Comment on above: Performed By: #### C BC #### [facility] [address] [address] [address] Ashlie Hills SYMPTOMATIC COVID-19 ANTIGEN on 12-04-2022 EUA Statement SEE BELOW Normal [facility] Comment on above: Result Comment: This test [...] sooner. Performed By: #### C VDAGS #### [facility] [address] [place] [address] Dr. Ashlie Hills SARS-CoV-2 (COVID-19) RNA MADDY+probe Ql (Unsp spec) Negative Normal NEGATIVE [facility] Comment on above: Performed By: #### C VDAGS #### [facility] [address] [place] [address] Dr. Ashlie Hills TROPONIN, HIGH SENSITIVITYon 12-04-2022 HSTROP 8.9 pg/mL Normal 4.0-51.3 [facility] Comment on above: Result Comment: CUT- OFF POINTS HAVE BEEN ESTABLISHED BASED ON THE FOURTH UNIVERSAL DEFINITIONS OF MYOCARDIAL INFARCTION. THE UPPER REFERENCE LIMIT (URL) OF TROPONIN, DEFINED THE 99TH PERCENTILE OF cTnI DISTRIBUTION IN A REFERENCE POPULATION, HAS BEEN CONFIRMED THE DECISION THRESHOLD FOR TX DIAGNOSIS. Performed By: #### P OCGLUC #### [facility] [address] [place] [address] Dr. Ashlie Hills MICROALBUMIN, RAND URon - mALB 35.8 mg/dL Critically high <=30.0 [facility] Comment on above: Performed By: #### C VDAGS #### [facility] [address] [address] [address] Ashlie Hills UA RANDOM W/MICROSCOPICon BACTERIA NONE SEEN Normal NONE SEEN [facility] Comment on above: Performed By: #### C VDAGS #### [facility] [address] [address] [address] Ashlie Hills Bilirubin Ql (U) Negative Normal NEGATIVE [facility] Comment on above: Performed By: #### C VDAGS #### [facility] [address] [place] [address] Dr. Ashlie Hills CAST SEEN Abnormal NONE SEEN [facility] Comment on above: Performed By: #### C VDAGS #### [facility] [address] [place] [address] Dr. Ashlie Hills Clarity (U) CLEAR Normal CLEAR [facility] Comment on above: Performed By: #### C VDAGS #### [facility] [address] [place] [address] Dr. Ashlie Hills Color (U) YELLOW Normal YELLOW [facility] Comment on above: Performed By: #### C VDAGS #### [facility] [address] [place] [address] Dr. Ashlie Hills Crystals LM Nom (Urine sed) NONE SEEN Normal NONE SEEN [facility] Comment on above: Performed By: #### C VDAGS #### [facility] [address] [place] [address] Dr. Ashlie Hills Epithelial cells LM Ql (Urine sed) MODERATE Abnormal NONE SEEN /RARE [facility] Comment on above: Performed By: #### C VDAGS #### [facility] [address] [place] [address] Dr. Ashlie Hills Glucose Ql (U) Negative Normal NEGATIVE [facility] Comment on above: Performed By: #### C VDAGS #### [facility] [address] [place] [address] Dr. Ashlie Hills Hemoglobin Ql (U) TRACE-INTACT Abnormal NEGATIVE [facility] Comment on above: Performed By: #### C VDAGS #### [facility] [address] [place] [address] Dr. Ashlie Hills Ketones Ql (U) Negative Normal NEGATIVE [facility] Comment on above: Performed By: #### C VDAGS #### [facility] [address] [place] [address] Dr. Ashlie Hills LEUKOCYTES Negative Normal NEGATIVE [facility] Comment on above: Performed By: #### C VDAGS #### [facility] [address] [place] [address] Dr. Ashlie Hills MUCOUS NONE SEEN Normal NONE SEEN [facility] Comment on above: Performed By: #### C VDAGS #### [facility] [address] [place] [address] Dr. Ashlie Hills Nitrite Ql (U) Negative Normal NEGATIVE [facility] Comment on above: Performed By: #### C VDAGS #### [facility] [address] [place] [address] Dr. Ashlie Hills pH (U) 5.0 [pH] Normal 5-9 [facility] Comment on above: Performed By: #### C VDAGS #### [facility] [address] [place] [address] Dr. Ashlie Hills RBC 0-2 Normal 0-2 [facility] Comment on above: Performed By: #### C VDAGS #### [facility] [address] [place] [address] Dr. Ashlie Hills SPEC GRAVITY 1.030 Abnormal 1.005-<=1.025 [facility] Comment on above: Performed By: #### C VDAGS #### [facility] [address] [place] [address] Dr. Ashlie Hills UA PROTEIN 100 mg/dl Abnormal NEGATIVE/ TRACE [facility] Comment on above: Performed By: #### C VDAGS #### [facility] [address] [place] [address] Dr. Ashlie Hills Urobilinogen Qn (U) 0.2 {Little'U}/dL Normal 0.2 - 1. 0 [facility] Comment on above: Performed By: #### C VDAGS #### [facility] [address] [place] [address] Dr. Ashlie Hills WBC NONE SEEN Normal NONE SEEN [facility] Comment on above: Performed By: #### C VDAGS #### [facility] [address] [place] [address] Dr. Ashlie Hills CBC AUTO DIFFon 11-22-2022 BASO # 0.0 103/ul Normal 0.0-0.1 [facility] Comment on above: Performed By: #### C BC #### [facility] [address] [place] [address] Dr. Ashlie Hills Basophils/100 WBC (Bld) 0.3 % Normal 0.2-2.0 [facility] Comment on above: Performed By: #### C BC #### [facility] [address] [place] [address] Dr. Ashlie Hills EO # 0.4 103/ul Normal 0.0-0.7 [facility] Comment on above: Performed By: #### C BC #### [facility] [address] [place] [address] Dr. Ashlie Hills Eosinophils/100 WBC (Bld) 3.0 % Normal 0.9-7.0 [facility] Comment on above: Performed By: #### C BC #### [facility] [address] [place] [address] Dr. Ashlie Hills Erythrocyte distribution width (RBC) [Ratio] 15.3 % Critically high 11.0-15.0 [facility] Comment on above: Performed By: #### C BC #### [facility] [address] [place] [address] Dr. Ashlie Hills Hematocrit (Bld) [Volume fraction] 52.4 % Critically high 36.0-48.0 [facility] Comment on above: Performed By: #### C BC #### [facility] [address] [place] [address] Dr. Ashlie Hills Hemoglobin (Bld) [Mass/Vol] 16.8 g/dL Critically high 12.0-16.0 [facility] Comment on above: Performed By: #### C BC #### [facility] [address] [address] [address] Ashlie Hills IG # 0.04 10e3/ul Critically high 0.00-0.03 [facility] Comment on above: Performed By: #### C BC #### [facility] [address] [place] [address] Dr. Ashlie Hills IG % 0.3 % Normal 0.0-0.5 [facility] Comment on above: Performed By: #### C BC #### [facility] [address] [place] [address] Dr. Ashlie Hills LYMPH # 4.5 103/ul Critically high 1.2-3.8 [facility] Comment on above: Performed By: #### C BC #### [facility] [address] [place] [address] Dr. Ashlie Hills Lymphocytes/100 WBC (Bld) 33.2 % Normal 20.5-60.0 [facility] Comment on above: Performed By: #### C BC #### [facility] [address] [place] [address] Dr. Ashlie Hills MANUAL DIFF REQ NO Normal [facility] Comment on above: Performed By: #### C BC #### [facility] [address] [place] [address] Dr. Ashlie Hills MCH (RBC) [Entitic mass] 28.0 pg Normal 26.7-34.0 [facility] Comment on above: Performed By: #### C BC #### [facility] [address] [place] [address] Dr. Ashlie Hills MCHC (RBC) [Mass/Vol] 32.1 g/dL Normal 29.9-35.2 [facility] Comment on above: Performed By: #### C BC #### [facility] [address] [place] [address] Dr. Ashlie Hills MCV (RBC) [Entitic vol] 87.3 fL Normal 81.0-99.0 [facility] Comment on above: Performed By: #### C BC #### [facility] [id number] Ashlie Hills MONO # 0.8 103/ul Normal 0.3-0.8 [facility] Comment on above: Performed By: #### C BC #### [facility] [address] [place] [address] Dr. Ashlie Hills Monocytes/100 WBC (Bld) 5.7 % Normal 1.7-12.0 [facility] Comment on above: Performed By: #### C BC #### [facility] [address] [place] [address] Dr. Ashlie Hills NEUT # 7.8 103/ul Critically high 1.4-6.5 [facility] Comment on above: Performed By: #### C BC #### [facility] [address] [place] [address] Dr. Ashlie Hills Neutrophils/100 WBC (Bld) 57.5 % Normal 43.0-75.0 [facility] Comment on above: Performed By: #### C BC #### [facility] [address] [place] [address] Dr. Ashlie Hills Platelet mean volume (Bld) [Entitic vol] 12.0 fL Normal 9.5-13.5 [facility] Comment on above: Performed By: #### C BC #### [facility] [address] [place] [address] Dr. Ashlie Hills PLT 152 103/ul Normal 150-450 [facility] Comment on above: Performed By: #### C BC #### [facility] [address] [place] [address] Dr. Ashlie Hills RBC 6.00 106/ul Critically high 4.20-5.40 [facility] Comment on above: Performed By: #### C BC #### [facility] [address] [place] [address] Dr. Ashlie Hills WBC 13.6 103/ul Critically high 4.0-11.0 [facility] Comment on above: Performed By: #### C BC #### [facility] [address] [place] [address] Dr. Ashlie Hills LIPID PROFILEon 11-22-2022 CHOL-HDL RATIO NORM SEE BELOW Normal [facility] Comment on above: Result Comment: 3.3 - 4.4 LOW RISK 4.4 - 7.1 AVERAGE RISK 7.1 - 11.0 MODERATE RISK >11.0 HIGH RISK Performed By: #### C BC #### [facility] [address] [place], [place] [address] Dr. Ashlie Hills Cholesterol [Mass/Vol] 139 mg/dL Normal <=200 [facility] Comment on above: Performed By: #### C BC #### [facility] [address] [place], [place] [address] Dr. Ashlie Hills Cholesterol in HDL [Mass/Vol] 35 mg/dL Critically low 40-60 [facility] Comment on above: Performed By: #### C BC #### [facility] [address] [place], [place] [address] Dr. Ashlie Hills Cholesterol in LDL [Mass/Vol] 67.4 mg/dL Normal [facility] Comment on above: Performed By: #### C BC #### [facility] [address] [place], [place] [address] Dr. Ashlie Hills Cholesterol.total/Ch olesterol in HDL [Mass ratio] 4.0 {ratio} Normal [facility] Comment on above: Performed By: #### C BC #### [facility] [address] [place], [place] [address] Dr. Ashlie Hills HDL NORMAL > or = 60 mg/dl - LOW CARDIOVASCULAR RISK <40 mg/dl - HIGH CARDIOVASCULAR RISK Normal [facility] Comment on above: Performed By: #### C BC #### [facility] [address] [place], [place] [address] Dr. Ashlie Hills LDL CALC NORMAL SEE BELOW Normal [facility] Comment on above: Result Comment: <100 mg/dl OPTIMAL 100 - 129 mg/dl NEAR OR ABOVE OPTIMAL 130 - 159 mg/dl BORDERLINE HIGH 160 - 189 mg/dl HIGH >190 mg/dl VERY HIGH Performed By: #### C BC #### [facility] [id number] Ashlie Hills Triglyceride [Mass/Vol] 183 mg/dL Critically high <=150 [facility] Comment on above: Performed By: #### C BC #### [facility] [address] [place], [place] [address] Dr. Ashlie Hills VLDL CALC 36.6 mg/dL Normal [facility] Comment on above: Performed By: #### C BC #### [facility] [address] [place], [place] [address] Dr. 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 LOCATION: [facility] BREAST COMPOSITION: Almost entirely fatty. FINDINGS: [...] M.D. on 11/22/2022 at 12:09 Normal [facility] PROF 14(COMP METB)on 05-17-2 023 Albumin [Mass/Vol] 3.0 g/dL Critically low 3.4-5.0 [facility] Comment on above: Performed By: #### C BC #### [facility] [address] [place] [address] Dr. Ashlie Hills Albumin/Globulin [Mass ratio] 0.6 {ratio} Normal [facility] Comment on above: Performed By: #### C BC #### [facility] [address] [address] [address] Ashlie Hills ALP [Catalytic activity/Vol] 68 U/L Normal 46-116 [facility] Comment on above: Performed By: #### C BC #### [facility] [address] [place] [address] Dr. Ashlie Hills ALT [Catalytic activity/Vol] 14 U/L Normal 14-59 [facility] Comment on above: Performed By: #### C BC #### [facility] [address] [place] [address] Dr. Ashlie Hills Anion gap [Moles/Vol] 12.1 mmol/L Normal [facility] Comment on above: Performed By: #### C BC #### [facility] [address] [place] [address] Dr. Ashlie Hills AST [Catalytic activity/Vol] 9 U/L Critically low 15-37 [facility] Comment on above: Performed By: #### C BC #### [facility] [address] [place] [address] Dr. Ashlie Hills Bilirubin [Mass/Vol] 0.4 mg/dL Normal 0.2-1.0 [facility] Comment on above: Performed By: #### C BC #### [facility] [address] [place] [address] Dr. Ashlie Hills Calcium [Mass/Vol] 9.0 mg/dL Normal 8.5-10.1 [facility] Comment on above: Performed By: #### C BC #### [facility] [address] [place] [address] Dr. Ashlie Hills Chloride [Moles/Vol] 105 mmol/L Normal 98-107 [facility] Comment on above: Performed By: #### C BC #### [facility] [address] [address] [address] Ashlie Hills CO2 [Moles/Vol] 30.7 mmol/L Normal 21.0-32.0 [facility] Comment on above: Performed By: #### C BC #### [facility] [address] [address] [address] Ashlie Hills Creatinine [Mass/Vol] 0.77 mg/dL Normal 0.55-1.02 [facility] Comment on above: Performed By: #### C BC #### [facility] [address] [address] [address] Ashlie Hills EGFR-AF SURINAMESE >60 Normal >=60 [facility] Comment on above: Performed By: #### C BC #### [facility] [address] [address] [address] Ashlie Hills EGFR-NON AF SURINAMESE >60 Normal >=60 [facility] Comment on above: Performed By: #### C BC #### [facility] [address] [address] [address] Ashlie Hills Globulin (S) [Mass/Vol] 4.8 g/dL Normal [facility] Comment on above: Performed By: #### C BC #### [facility] [address] [address] [address] Ashlie Hills Glucose [Mass/Vol] 162 mg/dL Critically high 74-106 [facility] Comment on above: Performed By: #### C BC #### [facility] [address] [address] [address] Ashlie Hills Potassium [Moles/Vol] 3.8 mmol/L Normal 3.5-5.1 [facility] Comment on above: Performed By: #### C BC #### [facility] [address] [address] [address] Ashlie Hills Protein [Mass/Vol] 7.8 g/dL Normal 6.4-8.2 [facility] Comment on above: Performed By: #### C BC #### [facility] [address] [place], [place] [address] Dr. Ashlie Hills Sodium [Moles/Vol] 144 mmol/L Normal 136-145 [facility] Comment on above: Performed By: #### C BC #### [facility] [address] [address] [address] Ashlie Hills Urea nitrogen [Mass/Vol] 24.0 mg/dL Critically high 7.0-18.0 [facility] Comment on above: Performed By: #### C BC #### [facility] [address] [address] [address] Ashlie Hills Urea nitrogen/Creatinine [Mass ratio] 31.2 mg/mg Normal [facility] Comment on above: Performed By: #### C BC #### [facility] [address] [address] [address] Ashlie Hills Patient Educationon 11-16-19 23 [...] Spinach (cooked), rhubarb, beets, sweet potatoes, and Citizen [place] chard. ? Peanuts. ? Potato chips, ghanaian fries, and baked potatoes with skin on. ? Nuts and nut products. ? Chocolate. ? If you regularly take a diuretic medicine, make sure to eat at least 1 or 2 servings of fruits or vegetables that are high in potassium each day. These include: ? Avocado. ? Banana. ? [place], prune, carrot, or tomato juice. ? Baked [...] fish oil, or vitamin B6. ? Take qnhu-gga-mabyqmx and prescription medicines only as told by your health care provider. These include supplements. What foods should I limit? Limit your in (more content not included)... Normal [facility] Reminderson 11-15-2022 Reminders - From: Maria Elena Negrete To: SHEA Vega; Sent: 11/15/2022 14:23:36 EDT Show up: 04/17/2024 14:23:00 EDT Subject: Dani CT AP w con Due Date/Time: 05/18/2024 13:23:00 EST Please schedule [address] AP w con for adrenal mass. Normal [facility] Urology Office/Clinic Noteon 11-15-2022 Urology Office/Clinic Note [...] Contact Information SILVIA HOWELL, GAVIOTA Webb, URL [address] [facility] [place] [address] Additional Instructions: [address] AP w [...] (1/2 pack (more content not included)... Normal [facility] Comment on above: Result Comment: Elec tronically Signed By: GAVIOTA VEGA PA-C\.br\Date and Time Signed: 11/15/22 14:32 EDT\.br\Electronically Co-Signed By: Maria Elena Negrete\.br\Date and Time Co-Signed: 11/15/22 14:22 EDT\.br\Electronically Co-Signed By: Maria Elena Negrete\.br\Date and Time Co-Signed: 11/15/22 14:22 EDT CBC AUTO DIFFon 10-05-2022 BASO # 0.1 103/ul Normal 0.0-0.1 [facility] Comment on above: Performed By: #### C BC #### [facility] [address] [place] [address] Dr. Ashlie Hills Basophils/100 WBC (Bld) 0.6 % Normal 0.2-2.0 [facility] Comment on above: Performed By: #### C BC #### [facility] [address] [address] [address] Ashlie Hills EO # 0.3 103/ul Normal 0.0-0.7 [facility] Comment on above: Performed By: #### C BC #### [facility] [address] [place] [address] Dr. Ashlie Hills Eosinophils/100 WBC (Bld) 2.1 % Normal 0.9-7.0 [facility] Comment on above: Performed By: #### C BC #### [facility] [address] [place] [address] Dr. Ashlie Hills Erythrocyte distribution width (RBC) [Ratio] 15.9 % Critically high 11.0-15.0 [facility] Comment on above: Performed By: #### C BC #### [facility] [address] [place] [address] Dr. Ashlie Hills Hematocrit (Bld) [Volume fraction] 51.8 % Critically high 36.0-48.0 [facility] Comment on above: Performed By: #### C BC #### [facility] [address] [place] [address] Dr. Ashlie Hills Hemoglobin (Bld) [Mass/Vol] 16.6 g/dL Critically high 12.0-16.0 [facility] Comment on above: Performed By: #### C BC #### [facility] [address] [place] [address] Dr. Ashlie Hills IG # 0.03 10e3/ul Normal 0.00-0.03 [facility] Comment on above: Performed By: #### C BC #### [facility] [address] [place] [address] Dr. Ashlie Hills IG % 0.2 % Normal 0.0-0.5 [facility] Comment on above: Performed By: #### C BC #### [facility] [address] [place] [address] Dr. Ashlie Hills LYMPH # 3.9 103/ul Critically high 1.2-3.8 [facility] Comment on above: Performed By: #### C BC #### [facility] [address] [place] [address] Dr. Ashlie Hills Lymphocytes/100 WBC (Bld) 31.7 % Normal 20.5-60.0 [facility] Comment on above: Performed By: #### C BC #### [facility] [address] [place] [address] Dr. Ashlie Hills MANUAL DIFF REQ NO Normal [facility] Comment on above: Performed By: #### C BC #### [facility] [address] [place] [address] Dr. Ashlie Hills MCH (RBC) [Entitic mass] 27.9 pg Normal 26.7-34.0 [facility] Comment on above: Performed By: #### C BC #### [facility] [address] [place] [address] Dr. Ashlie Hills MCHC (RBC) [Mass/Vol] 32.0 g/dL Normal 29.9-35.2 [facility] Comment on above: Performed By: #### C BC #### [facility] [address] [place] [address] Dr. Ashlie Hills MCV (RBC) [Entitic vol] 87.1 fL Normal 81.0-99.0 [facility] Comment on above: Performed By: #### C BC #### [facility] [address] [place] [address] Dr. Ashlie Hills MONO # 0.7 103/ul Normal 0.3-0.8 [facility] Comment on above: Performed By: #### C BC #### [facility] [address] [place] [address] Dr. Ashlie Hills Monocytes/100 WBC (Bld) 5.8 % Normal 1.7-12.0 [facility] Comment on above: Performed By: #### C BC #### [facility] [address] [place] [address] Dr. Ashlie Hills NEUT # 7.3 103/ul Critically high 1.4-6.5 [facility] Comment on above: Performed By: #### C BC #### [facility] [address] [place] [address] Dr. Ashlie Hills Neutrophils/100 WBC (Bld) 59.6 % Normal 43.0-75.0 [facility] Comment on above: Performed By: #### C BC #### [facility] [address] [address] [address] Ashlie Hills Platelet mean volume (Bld) [Entitic vol] 11.7 fL Normal 9.5-13.5 [facility] Comment on above: Performed By: #### C BC #### [facility] [address] [address] [address] Ashlie Hills PLT 117 103/ul Critically low 150-450 [facility] Comment on above: Performed By: #### C BC #### [facility] [address] [address] [address] Ashlie Hills RBC 5.95 106/ul Critically high 4.20-5.40 [facility] Comment on above: Performed By: #### C BC #### [facility] [address] [address] [address] Ashlie Hills WBC 12.3 103/ul Critically high 4.0-11.0 [facility] Comment on above: Performed By: #### C BC #### [facility] [id number] Ashlie Hills CT ABD/PELV W CONon [...] RICCO PICKARD Date: 2022-10-05 13:13 Normal [facility] ER URINE PROFILEon 3 Bilirubin Ql (U) Negative Normal NEGATIVE [facility] Comment on above: Performed By: #### P OCGLUC #### [facility] [address] [address] [address] Ashlie Hills Clarity (U) CLEAR Normal CLEAR [facility] Comment on above: Performed By: #### P OCGLUC #### [facility] [address] [place] [address] Dr. Ashlie Hills Color (U) YELLOW Normal YELLOW [facility] Comment on above: Performed By: #### P OCGLUC #### [facility] [address] [address] [address] Ashlie Hills ERUAHBraulio A micrscopic examination will be performed if indicated. Normal [facility] Comment on above: Performed By: #### P OCGLUC #### [facility] [address] [address] [address] Ashlie Hills Glucose Ql (U) Negative Normal NEGATIVE [facility] Comment on above: Performed By: #### P OCGLUC #### [facility] [address] [address] [address] Ashlie Hills Hemoglobin Ql (U) Negative Normal NEGATIVE [facility] Comment on above: Performed By: #### P OCGLUC #### [facility] [address] [address] [address] Ashlie Hills Ketones Ql (U) Negative Normal NEGATIVE [facility] Comment on above: Performed By: #### P OCGLUC #### [facility] [address] [address] [address] Ashlie Hills LEUKOCYTES Negative Normal NEGATIVE [facility] Comment on above: Performed By: #### P OCGLUC #### [facility] [address] [place] [address] Dr. Ashlie Hills Nitrite Ql (U) Negative Normal NEGATIVE [facility] Comment on above: Performed By: #### P OCGLUC #### [facility] [address] [place] [address] Dr. Ashlie Hills pH (U) 6.0 [pH] Normal 5-9 [facility] Comment on above: Performed By: #### P OCGLUC #### [facility] [address] [place] [address] Dr. Ashlie Hills Protein (U) [Mass/Vol] 100 mg/dL Abnormal NEGATIVE/ TRACE [facility] Comment on above: Performed By: #### P OCGLUC #### [facility] [address] [place] [address] Dr. Ashlie Hills SPEC GRAVITY 1.010 Normal 1.005-<=1.025 [facility] Comment on above: Performed By: #### P OCGLUC #### [facility] [address] [place] [address] Dr. Ashlie Hills UR MICRO IND INDICATED Normal [facility] Comment on above: Performed By: #### P OCGLUC #### [facility] [address] [place] [address] Dr. Ashlie Hills Urobilinogen Qn (U) 1.0 {Little'U}/dL Normal 0.2 - 1. 0 [facility] Comment on above: Performed By: #### P OCGLUC #### [facility] [address] [place] [address] Dr. Ashile Hills LIPASEon 10-05-2022 Lipase [Catalytic activity/Vol] 1771.0 U/L Critically high 73.0-393.0 [facility] Comment on above: Performed By: #### C BC #### [facility] [address] [place] [address] Dr. Ashlie Hills PREG HCG QUALon 10-05-2022 , QUAL Negative Normal NEGATIVE [facility] Comment on above: Performed By: #### P OCGLUC #### [facility] [address] [place] [address] Dr. Ashlie Hills PROF 14(COMP METB)on 023 Albumin [Mass/Vol] 3.2 g/dL Critically low 3.4-5.0 [facility] Comment on above: Performed By: #### C BC #### [facility] [address] [place] [address] Dr. Ashlie Hills Albumin/Globulin [Mass ratio] 0.7 {ratio} Normal [facility] Comment on above: Performed By: #### C BC #### [facility] [address] [place] [address] Dr. Ashlie Hills ALP [Catalytic activity/Vol] 70 U/L Normal 46-116 [facility] Comment on above: Performed By: #### C BC #### [facility] [address] [place] [address] Dr. Ashlie Hills ALT [Catalytic activity/Vol] 11 U/L Critically low 14-59 [facility] Comment on above: Performed By: #### C BC #### [facility] [address] [place] [address] Dr. Ashlie Hills Anion gap [Moles/Vol] 10.3 mmol/L Normal [facility] Comment on above: Performed By: #### C BC #### [facility] [address] [place] [address] Dr. Ashlie Hills AST [Catalytic activity/Vol] 11 U/L Critically low 15-37 [facility] Comment on above: Performed By: #### C BC #### [facility] [address] [place] [address] Dr. Ashlie Hills Bilirubin [Mass/Vol] 0.9 mg/dL Normal 0.2-1.0 [facility] Comment on above: Performed By: #### C BC #### [facility] [address] [place] [address] Dr. Ashlie Hills Calcium [Mass/Vol] 9.3 mg/dL Normal 8.5-10.1 [facility] Comment on above: Performed By: #### C BC #### [facility] [address] [place] [address] Dr. Ashlie Hills Chloride [Moles/Vol] 105 mmol/L Normal 98-107 [facility] Comment on above: Performed By: #### C BC #### [facility] [address] [place] [address] Dr. Ashlie Hills CO2 [Moles/Vol] 30.6 mmol/L Normal 21.0-32.0 [facility] Comment on above: Performed By: #### C BC #### [facility] [address] [address] [address] Ashlie Hills Creatinine [Mass/Vol] 0.62 mg/dL Normal 0.55-1.02 [facility] Comment on above: Performed By: #### C BC #### [facility] [address] [place] [address] Dr. Ashlie Hills EGFR-AF SURINAMESE >60 Normal >=60 [facility] Comment on above: Performed By: #### C BC #### [facility] [address] [place] [address] Dr. Ashlie Hills EGFR-NON AF SURINAMESE >60 Normal >=60 [facility] Comment on above: Performed By: #### C BC #### [facility] [address] [address] [address] Ashlie Hills Globulin (S) [Mass/Vol] 4.6 g/dL Normal [facility] Comment on above: Performed By: #### C BC #### [facility] [address] [place] [address] Dr. Ashlie Hills Glucose [Mass/Vol] 85 mg/dL Normal 74-106 [facility] Comment on above: Performed By: #### C BC #### [facility] [address] [place] [address] Dr. Ashlie Hills Potassium [Moles/Vol] 3.9 mmol/L Normal 3.5-5.1 [facility] Comment on above: Performed By: #### C BC #### [facility] [address] [place] [address] Dr. Ashlie Hills Protein [Mass/Vol] 7.8 g/dL Normal 6.4-8.2 [facility] Comment on above: Performed By: #### C BC #### [facility] [address] [address] [address] Ashlie Hills Sodium [Moles/Vol] 142 mmol/L Normal 136-145 [facility] Comment on above: Performed By: #### C BC #### [facility] [address] [address] [address] Ashlie Hills Urea nitrogen [Mass/Vol] 12.0 mg/dL Normal 7.0-18.0 [facility] Comment on above: Performed By: #### C BC #### [facility] [address] [place] [address] Dr. Ashlie Hills Urea nitrogen/Creatinine [Mass ratio] 19.4 mg/mg Normal [facility] Comment on above: Performed By: #### C BC #### [facility] [address] [place] [address] Dr. Ashlie Hills URINE MICROSCOPIC ONLYon BACTERIA TRACE Abnormal NONE SEEN [facility] Comment on above: Performed By: #### P OCGLUC #### [facility] [address] [place] [address] Dr. Ashlie Hills Bacteria identified Cx Nom (U) NOT INDICATED Normal [facility] Comment on above: Performed By: #### P OCGLUC #### [facility] [address] [place] [address] Dr. Ashlie Hills CAST NONE SEEN Normal NONE SEEN [facility] Comment on above: Performed By: #### P OCGLUC #### [facility] [address] [place] [address] Dr. Ashlie Hills Crystals LM Nom (Urine sed) NONE SEEN Normal NONE SEEN [facility] Comment on above: Performed By: #### P OCGLUC #### [facility] [address] [place] [address] Dr. Ashlie Hills Epithelial cells LM Ql (Urine sed) MODERATE Abnormal NONE SEEN /RARE [facility] Comment on above: Performed By: #### P OCGLUC #### [facility] [address] [place] [address] Dr. Ashlie Hills MUCOUS NONE SEEN Normal NONE SEEN [facility] Comment on above: Performed By: #### P OCGLUC #### [facility] [address] [address] [address] Ashlie Hills RBC 0-2 Normal 0-2 [facility] Comment on above: Performed By: #### P OCGLUC #### [facility] [address] [place] [address] Dr. Ashlie Hills WBC 0-2 Abnormal NONE SEEN [facility] Comment on above: Performed By: #### P OCGLUC #### [facility] [address] [place] [address] Dr. Ashlie Hills Covid-19 PCR ([facility])on 09-06 SARS-CoV-2 (COVID-19) RNA MADDY+probe Ql (Unsp spec) Detected Abnormal NOT DETECTED [facility] Comment on above: Result Comment: This test is not yet approved or cleared by the [place] FDA. When there are no FDA-approved or cleared tests available, and other criteria are met, FDA can make tests available under an emergency access mechanism called an Emergency Use Authorization (EUA). The EUA for this test is supported by the Skip Hoist Engineer of Health and Human Service's declaration that [...] used). Performed By: #### C VDAGS #### [facility] [address] [place] [address] Dr. Ashlie Hills INFLUENZA A AND B AGon 09-21 INFLUANEGH SEE BELOW Normal [facility] Comment on above: Result Comment: Nega tive for Flu A protein angiten. Infection due to Flu A cannot be ruled out. Flu A angiten in the sample may be below the detection limit of the test. Performed By: #### I NFLUAB #### [facility] [address] [place] [address] Dr. Ashlie Hills INFLUBNEGH SEE BELOW Normal [facility] Comment on above: Result Comment: Nega tive for Flu B protein antigen. Infection due to Flu B cannot be ruled out. Flu B antigen in the sample may be below the detection limit of the test. Performed By: #### I NFLUAB #### [facility] [address] [place] [address] Dr. Ashlie Hills INFLUENZA A AG Negative Normal NEGATIVE SEE COMMENT [facility] Comment on above: Performed By: #### I NFLUAB #### [facility] [address] [address] [address] Ashlie Hills INFLUENZA B AG Negative Normal NEGATIVE SEE COMMENT [facility] Comment on above: Performed By: #### I NFLUAB #### [facility] [address] [place] [address] Dr. Ashlie Hills RAD - CT Reporton 07-31-2022 RAD - CT Report [id number] #1.00CD:127 Normal [facility] CT ABD/PELV W CONon 07-27-19 CT [...] to at least 10/21/2018, unchanged. https://www.ncbi.nlm .nih.gov/pmc/article s/[email or web address]/ Electronically authenticated by: COLLIN HUERTAS Date: 2022-07-27 14:56 Normal [facility] Reminders 07-27-2022 Reminders - From: Raquel Tidwell To: EU - Recalls Vargas; Sent: 02/06/2022 11:45:57 EDT Show up: 07/09/2022 11:45:00 EST Subject: Ct scan Due Date/Time: 07/31/2022 11:45:00 EST Reminder/Recall Pt needs Ct scan abd/pelvis w contrast ATTN Adrenals scheduled prior to Aug 2022 appt. She wants [facility] order faxed to [facility] Pt scheduled for 07/27/2022 will monitor [facility] for results over the next few days Normal [facility] Physician Orderon 07-19-2022 Physician Order [id number] #1.00CD:127 Normal [facility] CREATININEon 07-18-2022 Creatinine [Mass/Vol] 0.81 mg/dL Normal 0.55-1.02 [facility] Comment on above: Performed By: #### C BC #### [facility] [address] [place] [address] Dr. Ashlie Hills EGFR-AF SURINAMESE >60 Normal >=60 [facility] Comment on above: Performed By: #### C BC #### [facility] [address] [place] [address] Dr. Ashlie Hills EGFR-NON AF SURINAMESE >60 Normal >=60 [facility] Comment on above: Performed By: #### C BC #### [facility] [address] [place] [address] LOW EXT W CONT LTon [...] PATRICIA IVAN Date: 2022-07-18 14:58 Normal [facility] XR KNEE LT 1_2 Von 3 [...] HATTIE BAUTISTA Date: 2022-07-18 12:00 Normal [facility]09 SARS-CoV-2 (COVID-19) RNA MADDY+probe Ql (Unsp spec) Not detected Normal NOT DETECTED [facility] Comment on above: Result Comment: This test is not yet approved or cleared by the [place] FDA. When there are no FDA-approved or cleared tests available, and other criteria are met, FDA can make tests available under an emergency access mechanism called an Emergency Use Authorization (EUA). The EUA for this test is supported by the Skip Hoist Engineer of Health and Human Service's (HHS's) declaration [...] SARS-CoV-2. Performed By: #### C BC #### [facility] [address] [place] [address] Dr. Ashlie Hills INFLUENZA A AND B AGon 07-06 INFLUANE SEE BELOW Normal [facility] Comment on above: Result Comment: Nega tive for Flu A protein angiten. Infection due to Flu A cannot be ruled out. Flu A angiten in the sample may be below the detection limit of the test. Performed By: #### C BC #### [facility] [address] [place] [address] Dr. Ashlie Hills INFLUBNEG SEE BELOW Normal [facility] Comment on above: Result Comment: Nega tive for Flu B protein antigen. Infection due to Flu B cannot be ruled out. Flu B antigen in the sample may be below the detection limit of the test. Performed By: #### C BC #### [facility] [address] [place] [address] Dr. Ashlie Hills INFLUENZA A AG Negative Normal NEGATIVE SEE COMMENT [facility] Comment on above: Performed By: #### C BC #### [facility] [address] [place] [address] Dr. Ashlie Hills INFLUENZA B AG Negative Normal NEGATIVE SEE COMMENT [facility] Comment on above: Performed By: #### C BC #### [facility] [address] [place] [address] Dr. Ashlie Hills POINT OF CARE GLUCOSEon 04-08 Glucose [Mass/Vol] 108 mg/dL Critically high 74-106 [facility] Comment on above: Performed By: #### C BC #### [facility] [address] [place] [address] Dr. Ashlie Hills RAGHU by IFAon 03-07-2022 Antinuclear Antibodies, IFA Negative Normal [facility] Comment on above: Result Comment: Nega tive <1:80 Borderline 1:80 Positive >1:80 ICAP nomenclature: AC-0 For more information about Hep-2 cell patterns use ANApatterns.org, the official website for the International Consensus on Antinuclear Antibody (RAGHU) Patterns (ICAP). Performed By: #### A NAPARESH #### [facility] [address] [place] [address] Dr. Ashlie Hills IMMUNOFIXATION (TREVON), URINEo n 03-07-2022 TREVON Interpretation:U Comment Normal [facility] Comment on above: Result Comment: No m onoclonality detected. Performed By: #### C BC #### [facility] [address] [place] [address] Dr. Ashlie Hills IMMUNOFIXATION(TREVON),PROTEIN ELEC(PE),FREon 03-07-2022 Albumin [Mass/Vol] 3.0 g/dL Normal 2.9-4.4 [facility] Comment on above: Performed By: #### I NFLUAB #### [facility] [address] [place] [address] Dr. Ashlie Hills Albumin/Globulin [Mass ratio] 0.8 {ratio} Normal 0.7-1.7 [facility] Comment on above: Performed By: #### I NFLUAB #### [facility] [address] [place] [address] Dr. Ashlie Hills Dyrmj-2-Qqcuowcf 0.3 g/dL Normal 0.0-0.4 [facility] Comment on above: Performed By: #### I NFLUAB #### [facility] [address] [place] [address] Dr. Ashlie Hills Lswhu-2-Nzypgons 1.0 g/dL Normal 0.4-1.0 [facility] Comment on above: Performed By: #### I NFLUAB #### [facility] [address] [place] [address] Dr. Ashlie Hills Beta Globulin 1.8 g/dL Critically high 0.7-1.3 [facility] Comment on above: Performed By: #### I NFLUAB #### [facility] [address] [place] [address] Dr. Ashlie Hills Free [place] Lt Chains,S 45.2 mg/L Critically high 3.3-19.4 [facility] Comment on above: Performed By: #### I NFLUAB #### [facility] [address] [place] [address] Dr. Ashlie Hills Free Lambda Lt Chains,S 40.3 mg/L Critically high 5.7-26.3 [facility] Comment on above: Performed By: #### I NFLUAB #### [facility] [address] [place] [address] Dr. Ashlie Hills Gamma Globulin 0.8 g/dL Normal 0.4-1.8 [facility] Comment on above: Performed By: #### I NFLUAB #### [facility] [address] [place] [address] Dr. Ashlie Hills Globulin (S) [Mass/Vol] 3.9 g/dL Normal 2.2-3.9 [facility] Comment on above: Performed By: #### I NFLUAB #### [facility] [address] [place] [address] Dr. Ashlie Hills Immunofixation Result, Serum Comment Normal [facility] Comment on above: Result Comment: No m onoclonality detected. Performed By: #### I NFLUAB #### [facility] [address] [place] [address] Dr. Ashlie Hills Immunoglobulin A, Qn, Serum 776 mg/dL Critically high 87-352 [facility] Comment on above: Performed By: #### I NFLUAB #### [facility] [address] [place] [address] Dr. Ashlie Hills Immunoglobulin G, Qn, Serum 955 mg/dL Normal 586-1602 [facility] Comment on above: Performed By: #### I NFLUAB #### [facility] [address] [place] [address] Dr. Ashlie Hills Immunoglobulin M, Qn, Serum 39 mg/dL Normal 26-217 [facility] Comment on above: Performed By: #### I NFLUAB #### [facility] [address] [place] [address] Dr. Ashlie Hills [place]/Lambda Ratio, S 1.12 Normal 0.26-1.65 [facility] Comment on above: Performed By: #### I NFLUAB #### [facility] [address] [place] [address] Dr. Ashlie Hills M-Bright Not Observed Normal Not Observed [facility] Comment on above: Performed By: #### I NFLUAB #### [facility] [address] [place] [address] Dr. Ashlie Hills PDF . Normal [facility] Comment on above: Performed By: #### I NFLUAB #### [facility] [address] [place] [address] Dr. Ashlie Hills Please note: Comment Normal [facility] Comment on above: Result Comment: Prot ein electrophoresis scan will follow via computer, mail, or railroad switchman delivery. Performed By: #### I NFLUAB #### [facility] [address] [place] [address] Dr. Ashlie Hills Protein [Mass/Vol] 6.9 g/dL Normal 6.0-8.5 [facility] Comment on above: Performed By: #### I NFLUAB #### [facility] [address] [place] [address] Dr. Ashlie Hills C-PEPTIDE, SERUMon 2 C-Peptide, Serum 3.1 ng/mL Normal 1.1-4.4 [facility] Comment on above: Result Comment: C-Pe ptide reference interval is for fasting patients. Performed By: #### C PEPT #### [facility] [address] [place] [address] Dr. Ashlie Hills HEP B SURFACE ANTIGEN SCREEN on 03-04-2022 HBsAg Screen Negative Normal Negative [facility] Comment on above: Performed By: #### C BC #### [facility] [address] [place] [address] Dr. Ashlie Hills HEPATITIS C VIRUS AB W/ REFL EX QUANTon 03-04-2022 HCV AB <0.1 Normal 0.0-0.9 [facility] Comment on above: Performed By: #### I NFLUAB #### [facility] [address] [address] [address] Ashlie Hills Interpretation: Comment Normal [facility] Comment on above: Result Comment: Rupert tikike Not infected with HCV, unless recent infection is suspected or other evidence exists to indicate HCV infection. Performed By: #### I NFLUAB #### [facility] [address] [address] [address] Ashlie Hills MICROALBUMIN/ CREATININE RAT IOon 03-04-2022 Albumin, Urine 367.4 ug/mL Normal Not Estab. [facility] Comment on above: Performed By: #### C BC #### [facility] [address] [address] [address] Ashlie Hills Albumin/ Creatinine Ratio 239 mg/g creat Critically high 0-29 [facility] Comment on above: Result Comment: Norm al: 0 - 29 Moderately increased: 30 - 300 Severely increased: >300 Performed By: #### C BC #### [facility] [address] [address] [address] Ashlie Hills Creatinine, Urine 153.9 mg/dL Normal Not Estab. [facility] Comment on above: Performed By: #### C BC #### [facility] [address] [address] [address] Ashlie Hills VIT D 25-OH LABCORPon 2021 Vitamin D, 25-Hydroxy <4.0 Critically low 30.0-100.0 [facility] Comment on above: Result Comment: Graciela min D deficiency has been defined by the [place] of Medicine and an Endocrine Society practice guideline as a level of serum 25-OH vitamin D less than 20 ng/mL (1,2). The Endocrine Society went on to further define vitamin D insufficiency as a level between 21 and 29 ng/mL (2). 1. IOM ([place] of Medicine). 2010. Dietary reference intakes for calcium and D. [place]: The National Academies Press. 2. Lynda STAHL, Keely OLIVEROS, Leandra LOPEZ, et al. Evaluation, treatment, and prevention of vitamin D deficiency: an Endocrine Society clinical practice guideline. JCEM. 2010; 96(7):1911-30. Performed By: #### C BC #### [facility] [address] [place] [address] Dr. Ashlie Hills GLYCOHEMOGLOBIN A1Con 2021 ADA RECOMMENDATION SEE BELOW Normal [facility] Comment on above: Result Comment: ADA RECOMMENDED LIMIT 4.0 - 6.0 ADA THERAPEUTIC TARGET < 7.0 ACTION SUGGESTED > 7.0 Performed By: #### C VDAGS #### [facility] [address] [place] [address] Dr. Ashlie Hills Glucose [Mass/Vol] 295 mg/dL Normal [facility] Comment on above: Performed By: #### C VDAGS #### [facility] [address] [place] [address] Dr. Ashlie Hills HbA1c (Bld) [Mass fraction] 11.9 % Critically high 4.5-6.2 [facility] Comment on above: Performed By: #### C VDAGS #### [facility] [address] [place] [address] Dr. Ashlie Hills HEMOGRAM AND PLATELon 2021 Hematocrit (Bld) [Volume fraction] 56.3 % Critically high 36.0-48.0 [facility] Comment on above: Performed By: #### C VDAGS #### [facility] [address] [place] [address] Dr. Ashlie Hills Hemoglobin (Bld) [Mass/Vol] 18.0 g/dL Critically high 12.0-16.0 [facility] Comment on above: Performed By: #### C VDAGS #### [facility] [address] [place] [address] Dr. Ashlie Hills MCH (RBC) [Entitic mass] 29.5 pg Normal 26.7-34.0 [facility] Comment on above: Performed By: #### C VDAGS #### [facility] [address] [place] [address] Dr. Ashlie Hills MCHC (RBC) [Mass/Vol] 32.0 g/dL Normal 29.9-35.2 [facility] Comment on above: Performed By: #### C VDAGS #### [facility] [address] [place] [address] Dr. Ashlie Hills MCV (RBC) [Entitic vol] 92.1 fL Normal 81.0-99.0 [facility] Comment on above: Performed By: #### C VDAGS #### [facility] [address] [place] [address] Dr. Ashlie Hills PLT 123 103/ul Critically low 150-450 [facility] Comment on above: Performed By: #### C VDAGS #### [facility] [address] [place] [address] Dr. Ashlie Hills RBC 6.11 106/ul Critically high 4.20-5.40 [facility] Comment on above: Performed By: #### C VDAGS #### [facility] [address] [place] [address] Dr. Ashlie Hills WBC 16.4 103/ul Critically high 4.0-11.0 [facility] Comment on above: Performed By: #### C VDAGS #### [facility] [address] [place] [address] Dr. Ashlie Hills LIPID PROFILEon 03-03-2022 CHOL-HDL RATIO NORM SEE BELOW Normal [facility] Comment on above: Result Comment: 3.3 - 4.4 LOW RISK 4.4 - 7.1 AVERAGE RISK 7.1 - 11.0 MODERATE RISK >11.0 HIGH RISK Performed By: #### C VDAGS #### [facility] [address] [place] [address] Dr. Ashlie Hills Cholesterol [Mass/Vol] 159 mg/dL Normal <=200 [facility] Comment on above: Performed By: #### C VDAGS #### [facility] [address] [place] [address] Dr. Ashlie Hills Cholesterol in HDL [Mass/Vol] 40 mg/dL Normal 40-60 [facility] Comment on above: Performed By: #### C VDAGS #### [facility] [address] [place] [address] Dr. Ashlie Hills Cholesterol in LDL [Mass/Vol] 81.8 mg/dL Normal [facility] Comment on above: Performed By: #### C VDAGS #### [facility] [address] [address] [address] Ashlie Hills Cholesterol.total/Ch olesterol in HDL [Mass ratio] 4.0 {ratio} Normal [facility] Comment on above: Performed By: #### C VDAGS #### [facility] [address] [address] [address] Ashlie Hills HDL NORMAL > or = 60 mg/dl - LOW CARDIOVASCULAR RISK <40 mg/dl - HIGH CARDIOVASCULAR RISK Normal [facility] Comment on above: Performed By: #### C VDAGS #### [facility] [address] [address] [address] Ashlie Hills LDL CALC NORMAL SEE BELOW Normal [facility] Comment on above: Result Comment: <100 mg/dl OPTIMAL 100 - 129 mg/dl NEAR OR ABOVE OPTIMAL 130 - 159 mg/dl BORDERLINE HIGH 160 - 189 mg/dl HIGH >190 mg/dl VERY HIGH Performed By: #### C VDAGS #### [facility] [address] [address] [address] Aslhie Hills Triglyceride [Mass/Vol] 186 mg/dL Critically high <=150 [facility] Comment on above: Performed By: #### C VDAGS #### [facility] [address] [address] [address] Ashlie Hills VLDL CALC 37.2 mg/dL Normal [facility] Comment on above: Performed By: #### C VDAGS #### [facility] [address] [address] [address] Ashlie Hills RENAL FUNCTION PANELon 03-03 Albumin [Mass/Vol] 3.1 g/dL Critically low 3.4-5.0 [facility] Comment on above: Performed By: #### C BC #### [facility] [address] [address] [address] Ashlie Hills Calcium [Mass/Vol] 9.2 mg/dL Normal 8.5-10.1 [facility] Comment on above: Performed By: #### C BC #### [facility] [address] [address] [address] Ashlie Hills Chloride [Moles/Vol] 102 mmol/L Normal 98-107 [facility] Comment on above: Performed By: #### C BC #### [facility] [address] [address] [address] Ashlie Hills CO2 [Moles/Vol] 31.9 mmol/L Normal 21.0-32.0 [facility] Comment on above: Performed By: #### C BC #### [facility] [address] [address] [address] Ashlie Hills Creatinine [Mass/Vol] 0.68 mg/dL Normal 0.55-1.02 [facility] Comment on above: Performed By: #### C BC #### [facility] [address] [address] [address] Ashlie Hills EGFR-AF SURINAMESE >60 Normal >=60 [facility] Comment on above: Performed By: #### C BC #### [facility] [address] [address] [address] Ashlie Hills EGFR-NON AF SURINAMESE >60 Normal >=60 [facility] Comment on above: Performed By: #### C BC #### [facility] [address] [address] [address] Ashlie Hills Glucose [Mass/Vol] 131 mg/dL Critically high 74-106 [facility] Comment on above: Performed By: #### C BC #### [facility] [address] [address] [address] Ashlie Hills Phosphate [Mass/Vol] 4.0 mg/dL Normal 2.6-4.7 [facility] Comment on above: Performed By: #### C BC #### [facility] [address] [address] [address] Ashlie Hills Potassium [Moles/Vol] 4.0 mmol/L Normal 3.5-5.1 [facility] Comment on above: Performed By: #### C BC #### [facility] [address] [place] [address] Dr. Ashlie Hills Sodium [Moles/Vol] 141 mmol/L Normal 136-145 [facility] Comment on above: Performed By: #### C BC #### [facility] [address] [place] [address] Dr. Ashlie Hills Urea nitrogen [Mass/Vol] 17.0 mg/dL Normal 7.0-18.0 [facility] Comment on above: Performed By: #### C BC #### [facility] [address] [place] [address] Dr. Ashlie Hills UA RANDOM W/MICROSCOPICon BACTERIA NONE SEEN Normal NONE SEEN [facility] Comment on above: Performed By: #### I NFLUAB #### [facility] [address] [place] [address] Dr. Ashlie Hills Bilirubin Ql (U) Negative Normal NEGATIVE [facility] Comment on above: Performed By: #### I NFLUAB #### [facility] [address] [place] [address] Dr. Ashlie Hills CAST NONE SEEN Normal NONE SEEN [facility] Comment on above: Performed By: #### I NFLUAB #### [facility] [address] [place] [address] Dr. Ashlie Hills Clarity (U) CLEAR Normal CLEAR [facility] Comment on above: Performed By: #### I NFLUAB #### [facility] [address] [place] [address] Dr. Ashlie Hills Color (U) YELLOW Normal YELLOW [facility] Comment on above: Performed By: #### I NFLUAB #### [facility] [address] [place] [address] Dr. Ashlie Hills Crystals LM Nom (Urine sed) NONE SEEN Normal NONE SEEN [facility] Comment on above: Performed By: #### I NFLUAB #### [facility] [address] [place] [address] Dr. Ashlie Hills Epithelial cells LM Ql (Urine sed) FEW Abnormal NONE SEEN /RARE [facility] Comment on above: Performed By: #### I NFLUAB #### [facility] [address] [address] [address] Ashlie Hills Glucose Ql (U) Negative Normal NEGATIVE [facility] Comment on above: Performed By: #### I NFLUAB #### [facility] [address] [address] [address] Ashlie Hills Hemoglobin Ql (U) Negative Normal NEGATIVE [facility] Comment on above: Performed By: #### I NFLUAB #### [facility] [address] [address] [address] Ashlie Hills Ketones Ql (U) Negative Normal NEGATIVE [facility] Comment on above: Performed By: #### I NFLUAB #### [facility] [address] [place] [address] Dr. Ashlie Hills LEUKOCYTES Negative Normal NEGATIVE [facility] Comment on above: Performed By: #### I NFLUAB #### [facility] [address] [place] [address] Dr. Ashlie Hills MUCOUS NONE SEEN Normal NONE SEEN [facility] Comment on above: Performed By: #### I NFLUAB #### [facility] [address] [place] [address] Dr. Ashlie Hills Nitrite Ql (U) Negative Normal NEGATIVE [facility] Comment on above: Performed By: #### I NFLUAB #### [facility] [address] [place] [address] Dr. Ashlie Hills pH (U) 5.5 [pH] Normal 5-9 [facility] Comment on above: Performed By: #### I NFLUAB #### [facility] [address] [place] [address] Dr. Ashlie Hills RBC 0-2 Normal 0-2 [facility] Comment on above: Performed By: #### I NFLUAB #### [facility] [facility] [address] [place] [address] Dr. Ashlie Hills SPEC GRAVITY >=1.030 Abnormal 1.005-<=1.025 [facility] Comment on above: Performed By: #### I NFLUAB #### [facility] [address] [place] [address] Dr. Ashlie Hills UA PROTEIN 100 mg/dl Abnormal NEGATIVE/ TRACE [facility] Comment on above: Performed By: #### I NFLUAB #### [facility] [address] [place] [address] Dr. Ashlie Hills Urobilinogen Qn (U) 0.2 {Little'U}/dL Normal 0.2 - 1. 0 [facility] Comment on above: Performed By: #### I NFLUAB #### [facility] [address] [place] [address] Dr. Ashlie Hills WBC NONE SEEN Normal NONE SEEN [facility] Comment on above: Performed By: #### I NFLUAB #### [facility] [address] [place] [address] Dr. Ashlie Hills URIC ACID SERUMon 03-03-2022 Urate [Mass/Vol] 5.0 mg/dL Normal 2.6-6.0 [facility] Comment on above: Performed By: #### I NFLUAB #### [facility] [address] [place] [address] Dr. Ashlie Hills URINE T PROTEIN CREAT RATIOo n 03-03-2022 Protein (U) [Mass/Vol] 77.9 mg/dL Critically high <=12.0 [facility] Comment on above: Performed By: #### C VDAGS #### [facility] [address] [place] [address] Dr. Ashlie Hills UR PROT CREAT RAT 0.44 Normal [facility] Comment on above: Performed By: #### C VDAGS #### [facility] [address] [place] [address] Dr. Ashlie Hills URINE CREAT 175.15 mg/dL Normal 20.00-300.00 [facility] Comment on above: Performed By: #### C VDAGS #### [facility] [address] [place] [address] Dr. 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 Smoker Adrenal mass 1 cm to 4 cm in diameter Other obstructive and reflux uropathy Tests Performed Urnls Dip Stick Auto w/o Microscopy POC 7[address]26 CT Abdomen/Pelvis w/ Contrast -- Results Pending [...] A/P Where: [facility] [address], [place] [address]- [phone] Medications What How Much When Instructions Unchanged [...] Urnls Dip Stick Auto w/o Microscopy POC 48158 (02/06/2022) Bilirubin Urine Dipstick - Negative Blood Urine Dipstick - Negative Glucose Urine Dipstick - 2+ 500 mg/dl Ketones Urine Dipstick - Negative Leukocytes Urine Dipstick - Negative Nitrite Urine Dipstick - Negative Protein Urine Dipstick - 3+ (300 mg/dl) Specific [place] Urine Dipstick - >=1.030 Urine Appearance Urine [...] is caused (more content not included)... Normal [facility] Patient Educationon 02-07-20 Patient Education Obstetrics [...] Take ove (more content not included)... Normal [facility] Urology Office/Clinic Noteon 02-06-2022 Urology Office/Clinic [...] of protein. Recommended pt to see a knit tubing dyer due to high protein levels in the urine. All questions/concerns were discussed. Pt to call office if she encounters any issues prior. Pt acknowledges understanding. Other obstructive and reflux uropathy (N13.8: Other obstructive and reflux uropathy) Follow-up With When Contact Information REGLA PHIPPS, Julia Joya, GEMA In 6 months [facility] [address] [place] [address]- [phone] Additional Instructions: w/ repeat CT A/P Patient [...] flank pain (more content not included)... Normal [facility] Comment on above: Result Comment: Elec tronically Signed By: Julia VARGAS MD\.br\Date and Time Signed: 02/06/22 11:45 EDT\.br\Electronically Co-Signed By: Enedelia Mendoza\Luz Mariabr\Date and Time Co-Signed: 02/06/22 11:42 EDT CULTURE URINEon 12-25-2021 CULTURE URINE Culture Observations: GREATER THAN TWO ORGANISMS PRESENT, HEAVILY MIXED. PLEASE RESUBMIT CLEAN CATCH MID-STREAM URINE IF CLINICALLY INDICATED. Normal [facility] Comment on above: Performed By: #### I NFLUAB #### [facility] [address] [address] [address] Ashlie Hills CBC AUTO DIFFon 12-24-2021 BASO # 0.1 103/ul Normal 0.0-0.1 [facility] Comment on above: Performed By: #### C BC #### [facility] [address] [address] [address] Ashlie Hills Basophils/100 WBC (Bld) 0.5 % Normal 0.2-2.0 [facility] Comment on above: Performed By: #### C BC #### [facility] [address] [address] [address] Ashlie Hills EO # 0.4 103/ul Normal 0.0-0.7 [facility] Comment on above: Performed By: #### C BC #### [facility] [address] [place] [address] Dr. Ashlie Hills Eosinophils/100 WBC (Bld) 2.4 % Normal 0.9-7.0 [facility] Comment on above: Performed By: #### C BC #### [facility] [address] [place] [address] Dr. Ashlie Hills Erythrocyte distribution width (RBC) [Ratio] 14.1 % Normal 11.0-15.0 [facility] Comment on above: Performed By: #### C BC #### [facility] [address] [place] [address] Dr. Ashlie Hills Hematocrit (Bld) [Volume fraction] 55.9 % Critically high 36.0-48.0 [facility] Comment on above: Performed By: #### C BC #### [facility] [address] [place] [address] Dr. Ashlie Hills Hemoglobin (Bld) [Mass/Vol] 17.9 g/dL Critically high 12.0-16.0 [facility] Comment on above: Performed By: #### C BC #### [facility] [address] [place] [address] Dr. Ashlie Hills IG # 0.06 10e3/ul Critically high 0.00-0.03 [facility] Comment on above: Performed By: #### C BC #### [facility] [address] [place] [address] Dr. Ashlie Hills IG % 0.4 % Normal 0.0-0.5 [facility] Comment on above: Performed By: #### C BC #### [facility] [address] [place] [address] Dr. Ashlie Hills LYMPH # 5.8 103/ul Critically high 1.2-3.8 [facility] Comment on above: Performed By: #### C BC #### [facility] [address] [place] [address] Dr. Ashlie Hills Lymphocytes/100 WBC (Bld) 35.4 % Normal 20.5-60.0 [facility] Comment on above: Performed By: #### C BC #### [facility] [address] [place] [address] Dr. Ashlie Hills MANUAL DIFF REQ NO Normal [facility] Comment on above: Performed By: #### C BC #### [facility] [address] [place] [address] Dr. Ashlie Hills MCH (RBC) [Entitic mass] 29.4 pg Normal 26.7-34.0 [facility] Comment on above: Performed By: #### C BC #### [facility] [address] [place] [address] Dr. Ashlie Hills MCHC (RBC) [Mass/Vol] 32.0 g/dL Normal 29.9-35.2 [facility] Comment on above: Performed By: #### C BC #### [facility] [address] [place] [address] Dr. Ashlie Hills MCV (RBC) [Entitic vol] 91.8 fL Normal 81.0-99.0 [facility] Comment on above: Performed By: #### C BC #### [facility] [address] [place] [address] Dr. Ashlie Hills MONO # 0.8 103/ul Normal 0.3-0.8 [facility] Comment on above: Performed By: #### C BC #### [facility] [id number] Ashlie Hills Monocytes/100 WBC (Bld) 4.8 % Normal 1.7-12.0 [facility] Comment on above: Performed By: #### C BC #### [facility] [address] [address] [address] Ashlie Hlils NEUT # 9.3 103/ul Critically high 1.4-6.5 [facility] Comment on above: Performed By: #### C BC #### [facility] [address] [address] [address] Ashlie Hills Neutrophils/100 WBC (Bld) 56.5 % Normal 43.0-75.0 [facility] Comment on above: Performed By: #### C BC #### [facility] [address] [place] [address] Dr. Ashlie Hills Platelet mean volume (Bld) [Entitic vol] 12.9 fL Normal 9.5-13.5 [facility] Comment on above: Performed By: #### C BC #### [facility] [address] [address] [address] Ashlie Hills PLT 127 103/ul Critically low 150-450 [facility] Comment on above: Performed By: #### C BC #### [facility] [address] [place] [address] Dr. Ashlie Hills RBC 6.09 106/ul Critically high 4.20-5.40 [facility] Comment on above: Performed By: #### C BC #### [facility] [address] [place] [address] Dr. Ashlie Hills WBC 16.4 103/ul Critically high 4.0-11.0 [facility] Comment on above: Performed By: #### C BC #### [facility] [address] [place] [address] ABD/PELVIS WO CONon [...] Severe right hip degenerative change. Normal [facility] ER URINE PROFILEon 2 Bilirubin Ql (U) Negative Normal NEGATIVE [facility] Comment on above: Performed By: #### Tracey LYMAN UMHARRIETRO #### [facility] [address] [address] [address] Ashlie Hills Clarity (U) CLEAR Normal CLEAR [facility] Comment on above: Performed By: #### Tracey LYMAN UMICRO #### [facility] [address] [address] [address] Ashlie Hills Color (U) DK. ORANGE Abnormal YELLOW [facility] Comment on above: Performed By: #### MADELINE DIAZRO #### [facility] [address] [place] [address] Dr. Ashlie HOBBS A micrscopic examination will be performed if indicated. Normal [facility] Comment on above: Performed By: #### PEREZ DIAZICRO #### [facility] [address] [address] [address] Ashlie Hills Glucose Ql (U) 250 mg/dl Abnormal NEGATIVE [facility] Comment on above: Performed By: #### MADELINE DIAZRO #### [facility] [address] [place] [address] Dr. Ashlie Hills Hemoglobin Ql (U) Negative Normal NEGATIVE [facility] Comment on above: Performed By: #### MADELINE DIAZRO #### [facility] [address] [address] [address] Ashlie Hills Ketones Ql (U) Negative Normal NEGATIVE [facility] Comment on above: Performed By: #### MADELINE DIAZRO #### [facility] [address] [place] [address] Dr. Ashlie Hills LEUKOCYTES Negative Normal NEGATIVE [facility] Comment on above: Performed By: #### Tracey LYMAN UMICRO #### [facility] [address] [address] [address] Ashlie Hills Nitrite Ql (U) Negative Normal NEGATIVE [facility] Comment on above: Performed By: #### Tracey LYMAN UMICRO #### [facility] [address] [place] [address] Dr. Ashlie Hills pH (U) 5.0 [pH] Normal 5-9 [facility] Comment on above: Performed By: #### MADELINE DIAZRO #### [facility] [address] [place] [address] Dr. Ashlie Hills Protein (U) [Mass/Vol] 100 mg/dL Abnormal NEGATIVE/ TRACE [facility] Comment on above: Performed By: #### PEREZ DIAZICRO #### [facility] [address] [place] [address] Dr. Ashlie Hills SPEC GRAVITY >=1.030 Abnormal 1.005-<=1.025 [facility] Comment on above: Performed By: #### MADELINE DIAZRO #### [facility] [address] [place] [address] Dr. Ashlie Hills UR MICRO IND INDICATED Normal [facility] Comment on above: Performed By: #### Tracey LYMAN UMICRO #### [facility] [address] [place] [address] Dr. Ashlie Hills Urobilinogen Qn (U) 1.0 {Little'U}/dL Normal 0.2 - 1. 0 [facility] Comment on above: Performed By: #### MADELINE DIAZRO #### [facility] [address] [place] [address] Dr. Ashlie Hills PROF CHEM 8 (BAS METB)on Anion gap [Moles/Vol] 12.1 mmol/L Normal [facility] Comment on above: Performed By: #### I NFLUAB #### [facility] [address] [place] [address] Dr. Ashlie Hills Calcium [Mass/Vol] 9.0 mg/dL Normal 8.5-10.1 [facility] Comment on above: Performed By: #### I NFLUAB #### [facility] [address] [address] [address] Ashlie Hills Chloride [Moles/Vol] 101 mmol/L Normal 98-107 [facility] Comment on above: Performed By: #### I NFLUAB #### [facility] [address] [address] [address] Ashlie Hills CO2 [Moles/Vol] 29.1 mmol/L Normal 21.0-32.0 [facility] Comment on above: Performed By: #### I NFLUAB #### [facility] [address] [address] [address] Ashlie Hills Creatinine [Mass/Vol] 0.86 mg/dL Normal 0.55-1.02 [facility] Comment on above: Performed By: #### I NFLUAB #### [facility] [address] [address] [address] Ashlie Hills EGFR-AF SURINAMESE >60 Normal >=60 [facility] Comment on above: Performed By: #### I NFLUAB #### [facility] [address] [place] [address] Dr. Ashlie Hills EGFR-NON AF SURINAMESE >60 Normal >=60 [facility] Comment on above: Performed By: #### I NFLUAB #### [facility] [address] [address] [address] Ashlie Hills Glucose [Mass/Vol] 236 mg/dL Critically high 74-106 [facility] Comment on above: Performed By: #### I NFLUAB #### [facility] [address] [address] [address] Ashile Hills Potassium [Moles/Vol] 4.2 mmol/L Normal 3.5-5.1 [facility] Comment on above: Performed By: #### I NFLUAB #### [facility] [address] [address] [address] Ashlie Hills Sodium [Moles/Vol] 138 mmol/L Normal 136-145 [facility] Comment on above: Performed By: #### I NFLUAB #### [facility] [address] [address] [address] Ashlie Hills Urea nitrogen [Mass/Vol] 11.0 mg/dL Normal 7.0-18.0 [facility] Comment on above: Performed By: #### I NFLUAB #### [facility] [address] [place] [address] Dr. Ashlie Hills Urea nitrogen/Creatinine [Mass ratio] 12.8 mg/mg Normal [facility] Comment on above: Performed By: #### I NFLUAB #### [facility] [address] [place] [address] Dr. Ashlie Hills URINE MICROSCOPIC ONLYon BACTERIA SMALL Abnormal NONE SEEN [facility] Comment on above: Performed By: #### Tracey LYMAN UMICRO #### [facility] [address] [place] [address] Dr. Ashlie Hills Bacteria identified Cx Nom (U) INDICATED Normal [facility] Comment on above: Performed By: #### Tracey LYMAN UMICRO #### [facility] [address] [place] [address] Dr. Ashlie Hills CAST NONE SEEN Normal NONE SEEN [facility] Comment on above: Performed By: #### Tracey LYMAN UMICRO #### [facility] [address] [place] [address] Dr. Ashlie Hills Crystals LM Nom (Urine sed) NONE SEEN Normal NONE SEEN [facility] Comment on above: Performed By: #### Tracey LYMAN UMICRO #### [facility] [address] [place] [address] Dr. Aslhie Hills Epithelial cells LM Ql (Urine sed) MODERATE Abnormal NONE SEEN /RARE [facility] Comment on above: Performed By: #### Tracey LYMAN UMICRO #### [facility] [address] [place] [address] Dr. Ashlie Hills MUCOUS NONE SEEN Normal NONE SEEN [facility] Comment on above: Performed By: #### Tracey LYMAN UMICRO #### [facility] [address] [place] [address] Dr. Ashlie Hills RBC 0-2 Normal 0-2 [facility] Comment on above: Performed By: #### E RUR, UMICRO #### [facility] [address] [address] [address] Ashlie Hills WBC 0-2 Abnormal NONE SEEN [facility] Comment on above: Performed By: #### E RUR, UMICRO #### [facility] [address] [address] [address] Ashlie Hills YEAST PRESENT Abnormal NONE SEEN [facility] Comment on above: Performed By: #### E RUR, UMICRO #### [facility] [address] [address] [address] Ashlie Hills HIP RIGHT 1 OR 2 VWS WITH PE LVISon 07-20-2020 HIP RIGHT 1 OR 2 VWS WITH PELVIS [facility] Department of Radiology [address] [place] [id number] Patient Name: MITZI MACIAS : 1970 [...] MRI. Electronically signed: Pipo Acevedo. Transcribed by: [email or web address], User Resident: Electronically Signed by: PIPO ACEVEDO @ 07/20/2020 03:45 PM Normal [facility] Comment on above: Order Comment: evalu ate Vital Signs Date Time Vital Sign Value Performing Clinician Facility 03-08-2022 15:00-0400 Body height 170.18 cm Stephanie Tico Other [facility] Other 03-08-2022 15:00-0400 Body temperature 97.6 [degF] Stephanie Tico Other [facility] Other 03-08-2022 15:00-0400 Diastolic blood pressure 72 mm[Hg] Stephanie Tico Other [facility] Other 03-08-2022 15:00-0400 Respiratory rate 20 /min Stephanie Tico Other [facility] Other 03-08-2022 15:00-0400 SaO2% (BldA) [Mass fraction] 91 % Stephanie Tico Other [facility] Other 03-08-2022 15:00-0400 Systolic blood pressure 131 mm[Hg] Stephanie Tico Other [facility] Other 02-20-2022 09:20-0400 Body height 170.18 cm Stephanie Tico Other [facility] Other 02-20-2022 09:20-0400 Body temperature 96.5 [degF] Stephanie Tico Other [facility] Other 02-20-2022 09:20-0400 Diastolic blood pressure 69 mm[Hg] Stephanie Tico Other [facility] Other 02-20-2022 09:20-0400 Respiratory rate 20 /min Stephanie Tico Other [facility] Other 02-20-2022 09:20-0400 SaO2% (BldA) [Mass fraction] 91 % Stephanie Tico Other [facility] Other 02-20-2022 09:20-0400 Systolic blood pressure 129 mm[Hg] Stephanie Tico Other [facility] Other 02-06-2022 10:24-0400 Blood Pressure Location Julia Zappedy [facility] 02-06-2022 10:24-0400 Diastolic blood pressure 76 mm[Hg] Julia VARGAS [facility] 02-06-2022 10:24-0400 Heart rate 70 /min Julia VARGAS [facility] 02-06-2022 10:24-0400 Respiratory rate 16 /min Julia VARGAS [facility] 02-06-2022 10:24-0400 Systolic blood pressure 134 mm[Hg] Julia VARGAS [facility] Encounter Date Encounter Type Care Provider Facility Start: 04-22-2024 ambulatory GAVIOTA Maysi ty:[facility] Villalobos Start: 08-17-2023 Refill Mckayla Aichholz OVEN DAUBER Work Phone: [facility] Comment on above: Vaginal yeast infect ion (Primary Dx) Start: 08-14-2023 Refill Mckayla Aichholz OVEN DAUBER Work Phone: [facility] Comment on above: Type 2 diabetes asiya itus with unspecified complications (CMS/[facility]); Edema, unspecified; Edema Start: 07-10-2023 End: 07-10-2023 ambulatory MCKAYLA AICHHOLZ Not Available Start: 12-05-2022 ambulatory MATEUSZ POSADA . Facility:[facility] Start: 12-05-2022 End: 12-06-2022 Evaluation and management of inpatient UMBERTO HEALYP . Facility:[facility] Start: 11-23-2022 End: 11-23-2022 ambulatory BATCH ATTENDANT MCKAYLA AICHHOLZ Facility:[facility] Start: 11-22-2022 End: 11-23-2022 ambulatory BATCH ATTENDANT MCKAYLA AICHHOLZ Facility:[facility] Start: 11-17-2022 End: 11-18-2022 ambulatory SUBHASH GASPAR . Facility:[facility] Start: 11-15-2022 End: 11-16-2022 ambulatory GAVIOTA VEGA Facility:[facility] Start: 11-15-2022 End: 11-15-2022 Patient encounter procedure GAVIOTA VEGA [facility] Start: 10-05-2022 End: 10-05-2022 ambulatory MARIANO DIAB . Facility:[facility] Start: 09-21-2022 End: 09-21-2022 ambulatory BATCH ATTENDANT MCKAYLA AICHHOLZ Facility:[facility] Start: 09-14-2022 ambulatory RAFAEL GONGORA Facilit y:[facility] Start: 08-24-2022 End: [address] CHAPARRO MORTENSEN . Facility:[facility] Start: 08-21-2022 End: 08-22-2022 [facility] Start: 07-27-2022 End: 07-28-2022 ambulatory CECILIA SILVESTRETray . Facility:[facility] Start: 07-18-2022 End: 07-19-2022 ambulatory CECILIA SILVESTRETray . Facility:[facility] Start: 07-18-2022 End: 07-19-2022 [facility] Start: 07-06-2022 End: 07-06-2022 ambulatory BATCH ATTENDANT MCKAYLA BLAS Facility:[facility] Start: 05-11-2022 End: 05-12-2022 ambulatory GIL VALENZUELA . Facility:[facility] Start: 04-25-2022 End: 04-25-[address] CHAPARRO MORTENSEN . Facility:[facility] Start: 04-20-2022 End: 04-21-2022 ambulatory GIL VALENZUELA . 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 Facility:[facility] Start: 01-05-2022 ambulatory GAVIOTA VEGA Facility :[facility] Start: 12-24-2021 End: 12-24-2021 ambulatory OLE RAMIREZ Facility: Start: 08-26-2020 End: 09-10-2020 Patient encounter procedure MARY TAVERAS Facility:[facility] Start: 10-30-2019 End: 10-30-2019 Emergency department patient visit JAMES Reis [facility] Start: 10-30-2019 End: 10-30-2019 Emergency department patient visit James Desouza [facility] Emergency Department Start: 11-02-2016 Preoperative state Stephanie Tico Other [facility] Other Procedures Date Procedure Procedure Detail Performing Clinician Start: 11-22-2022 Mammography Mckayla clifford OVEN DAUBER Work Phone: Start: 10-08-2015 Microscopic observat ion [Identifier] in Cervix by Cyto stain Mckayla Blas NP Work Phone: H/O: hysterectomy Julia LARA Laparoscopic cholecystectomy Julia VARGAS Operative procedure on foot Julia VARGAS Plan of Treatment Date Care Activity Detail Author Start: 08-03-2025 Screening for malign ant neoplasm of colon [facility] Start: 11-24-2023 Urine screening for protein Diabetes: Urine Protein Screening [facility] Start: 11-23-2023 Screening for malign ant neoplasm of breast Mammogram [facility] Start: 10-15-2023 End: 10-15-2023 Patient encounter procedure 10/15/2023 4:30 PM EDT Office Visit [facility] [address] [place] [id number] Mckayla Blas NP [address] [place] [phone] [facility] Start: 08-09-2023 Hemoglobin A1c measurement Diabetes: Hemoglobin A1C [facility] Start: 05-27-2021 Glaucoma screening Diabetes: R etinopathy Screening [facility] Start: 03-09-2020 Influenza vaccination Flu vacc ine (Season Ended) [place], [place] Start: 10-07-2018 Screening for malign ant neoplasm of cervix [facility] Start: 2010 Lipid panel Lipid screen [place], [place] Start: 2000 Screening for malign ant neoplasm of cervix HPV/Cotest [facility] Start: 1991 Screening for malign ant neoplasm of cervix Cervical cancer screen [place], [place] Start: 1989 DTaP/Tdap/Td vaccine (1 - Tdap) DTaP/Tdap/Td vaccine ( - Tdap) [place], [place] Start: 1985 HIV screening HIV screen [facility] [place], [place] Start: 1970 Medicare Annual Well ness (AWV) Medicare Annual Wellness (AWV) [facility] Start: 1970 Screening for malign ant neoplasm of colon [facility] Immunizations Immunization Date Immunization Notes Care Provider Fa [facility] 05-18-2023 influenza, injectabl e, quadrivalent, contains preservative Mckayla Blas NP Work Phone: [facility] 07-19-2021 SARS-CoV-2 (COVID-19 ) mRNA BNT-162b2 [employer] [facility] 10-28-2020 SARS-CoV-2 (COVID-19 ) mRNA BNT-162b2 [employer] [facility] 10-08-2020 SARS-CoV-2 (COVID-19 ) mRNA BNT-162b2 [employer] [facility] Payers Date Payer Category Payer Medicaid MEDICAID [facility] [id number] 2018-Present [phone] [place] [address] Medicaid [id number] 2017 Medicare [employer] MEDICARE UHC DUAL COMPLETE [id number] 2017-Present [address] [place] [address] [id number]. [id number] 1970 Unknown [id number] 2.16.840.1.583870.3.579.2. 647 1970 Unknown [id number] 2.16.840.1.030061.3.579.2. 727 1970 Unknown [id number] 2.16.840.1.105218.3.579.2. 727 1970 Unknown [id number] 2.16.840.1.939497.3.579.2. 727 1970 Unknown [id number] 2.16.840.1.769557.3.579.2. 727 1970 Unknown [id number] 2.16.840.1.355245.3.579.2. 593 1970 Unknown [id number] 2.16.840.1.882502.3.579.2. 593 1970 Unknown [id number] 2.16.840.1.213025.3.579.2. 593 1970 Unknown [id number] 2.16.840.1.739016.3.579.2. 593 1970 Unknown [id number] 2.16.840.1.173148.3.579.2. 593 1970 Unknown [id number] 2.16.840.1.053917.3.579.2. 593 1970 Unknown [id number] 2.16.840.1.815944.3.579.2. 593 1970 Unknown [id number] 2.16.840.1.613527.3.579.2. 593 1970 Unknown [id number] 2.16.840.1.819739.3.579.2. 593 1970 Unknown [id number] 2.16.840.1.190936.3.579.2. 593 1970 Unknown [id number] 2.16.840.1.684540.3.579.2. 593 1970 Unknown [id number] 2.16.840.1.651011.3.579.2. 593 1970 Unknown [id number] 2.16.840.1.114083.3.579.2. 593 1970 Unknown [id number] 2.16.840.1.396819.3.579.2. 593 1970 Unknown [id number] 2.16.840.1.301460.3.579.2. 593 1970 Unknown [id number] 2.16.840.1.764112.3.579.2. 593 1970 Unknown [id number] 2.16.840.1.932059.3.579.2. 593 1970 Unknown [id number] 2.16.840.1.718609.3.579.2. 593 1970 Unknown [id number] 2.16.840.1.766268.3.579.2. 593 1970 Unknown [id number] 2.16.840.1.153187.3.579.2. 593 1970 Unknown [id number] 2.16.840.1.471614.3.579.2. 593 1970 Unknown [id number] 2.16.840.1.269667.3.579.2. 593 1970 Unknown [id number] 2.16.840.1.384409.3.579.2. 1259 1959 Medicaid [id number] 1959 Private Health Insurance [id number] 1959 Unknown [id number] 2.16.840.1.160612.19 Social History Date Type Detail Facility Start: 02-17-2014 End: 07-10-2023 Tobacco smoking status NHIS Current every day smoker [place] Start: 02-17-1994 History of tobacco use Cigarette Smo ker [place] Start: 02-17-2014 End: 07-10-2023 Cigarettes smoked current (pack per day) - Reported [place] Start: 02-17-2014 Alcohol intake Current drinke r of alcohol (finding) [place] Start: 02-17-2014 Alcohol Comment Rare [facility] [place], [place] Start: 1970 Sex Assigned At Not on file M [place], [place] Exposure to SARS-CoV -2 (event) Unable to assess [place] Start: 02-06-2022 Tobacco smoking status Smoker (findi ng) [facility] Start: 07-10-2023 Sex [facility]igned At Female [facility] Start: 11-15-2022 Tobacco smoking status Heavy t obacco smoker (finding) [facility] Start: 07-10-2023 Tobacco use and exposure Smoke less tobacco non-user [facility] Start: 07-10-2023 Alcohol intake Lifetime non-d adrien (finding) [facility] Within the last year , have you been afraid of your partner or ex-partner? No [facility] Do you belong to any clubs or organizations such as scientology groups, unions, fraternal or athletic groups, or [...] (one) time each day. Use as instructed [id number] Functional Status Date Assessment Result Facility 11-15-2022 Functional Status N/A [facility] 02-06-2022 Functional Status N/A [facility] Clinical Notes 01-19-2022 to 11-15-2022 Note [...] include: ?8 oz (237 mL) of milk, ppxyrbb-ckthvotmptiw-ejmyy milk, and calcium-fortifiedfruit juice. Calcium-fortified means that [...] ?Spinach (cooked), rhubarb, beets, sweet potatoes, and [place] chard. ?Peanuts. ?Potato chips, ghanaian fries, and baked potatoes with skin on. ?Nuts and nut products. ?Chocolate. If you regularly take a diuretic medicine, make sure to eat at least 1 or 2 servings of fruits or vegetables that are high in potassium each day. These include: ?Avocado. ?Banana. ?[place], prune, carrot, or tomato juice. ?Baked potato. [...] magnesium, fish oil, or vitamin B6. Take tjoz-nae-xyzyxmk and prescription medicines only as told by [...] Casseroles. Pizza. Lasagna. Frozen meals. Potato chips. Faroese fries. The items listed above may not [...] provider. Document Revised: 03/06/2022 Document Reviewed: 03/06/2022 [employer] Patient Education [address] [place]. Follow Up Care 02/06/2022 11:44:09 With:GAVIOTA VEGA PA-C, URL Address: [facility] [place] [address] When: Unknown [facility] 08-24-2022 Note CONSULTATION CONSULTATION DATE: 08/24/2022 [...] We maintain her on pain medication with [place] 5/325 t.i.d., diclofenac 75 mg b.i.d. Her [...] her at this point. A refill for [place] 5/325 t.i.d. and diclofenac 75 mg b.i.d. will be sent to the pharmacy. Vitamin compliance and nutrition were discussed and enforced. I did highly encourage her to use exercise bands to increase the strength in her lower extremities. We will see her in three months' time, unless otherwise indicated, and patient agrees. [facility] 05-11-2022 Note CONSULTATION CONSULTATION DATE: 05/11/2022 [...] 150. Medications include Lyrica 300 mg b.i.d., [place] 5/325 t.i.d., diclofenac 75 mg b.i.d. and [...] her medications today. We will maintain Lyrica, [place] and diclofenac at the set dose and frequency. We will follow-up in the clinic in three months' time. The patient is in agreement to this. Vitamin importance and nutrition were discussed. [facility] 04-20-2022 Note CONSULTATION CONSULTATION DATE: 04/20/2022 [...] medications include Tylenol, Lyrica 300 mg b.i.d., [place] 5/325 t.i.d., amitriptyline, diclofenac and duloxetine. Patient's [...] be followed up in the clinic. [facility] 03-08-2022 Evaluation note Encounter Date Diagnosis [...] to the DANIEL. Thrombocytopenia is unclear etiology. [facility] 08-15-2022 Evaluation note* Encounter Date Diagnosis [...] follow with Dr. Souza and Dr. Vargas. [facility] 08-01-2022 Hospital Discharge instructions Patient Education [...] fried and sweet foods. General instructions Take zmiq-dnh-vlwvekf and prescription medicines only as told by [...] 04/21/2010 Document Revised: 10/16/2019 Document Reviewed: 07/11/2018 [employer] Patient Education [address] [place]. Follow Up Care 01/05/2022 12:02:03 With:REGLA PHIPPS, Julia Joya, URL Address: [facility] [address] [place] [phone]- [phone] When:Within 6 Month(s) Comments:w/ repeat CT A/P [facility] 07-14-2022 NoteCONSULTATION PROCEDURE DATE: 01/19/2022 PRE [...] pattern and the patient tolerated it well. [facility] Signed and Approved by: GIL VALENZUELA . 01/27/2022 14:15:00[facility]07-14-2022 NoteCONSULTATION CONSULTATION DATE: 01/19/2022 This is [...] her up with an appointment with Dr. Vagras in Urology on February 06. The patient lives a very sedentary lifestyle and does not participate in exercise or use heat. Activities that aggravate this pain is twisting, pushing, pulling, turning, stairs and bending. The patient does present in a wheelchair today. Medications include Lyrica 300 mg b.i.d., [place] 5/325 t.i.d., diclofenac 75 mg b.i.d. and [...] in three months' time unless otherwise indicated. [facility] Signed and Approved by: GIL VALENZUELA . 01/27/2022 14:15:00[facility] Hospital[facility] + Plan note Future Appointments Appointment Date:08/14/2022 09:15:00 AM Scheduled Provider:Julia VARGAS MD Location:[facility] Appointment Type:URO Office Visit [facility] evaluation + Plan note Future Appointments Appointment Date:04/22/2024 10:00:00 AM Scheduled Provider:GAVIOTA VEGA PA-C Location:[facility] Appointment Type:URO Office Visit [facility] evaluation note* Diagnosis Type 2 diabetes mellitus with unspecified complications (CMS/[facility]) Edema, unspecified Edema documented in this [...] History sepsis 2011 Hospitalization History SEE ABOVE [facility] Hospital course Narrative No data available for this section [facility] progress note No data available for this section [facility] reason for referral (narrative) , Referral to Dr. 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 Summary Purpose Family History No Family History Records FoundNo Family History Records FoundNo Family History Records FoundNo Family History Records FoundNo Family History Records Found Additional Source Comments INFORMATION SOURCE (unrecogn ized section and content) DATE CREATED AUTHOR 10/30/2019 [facility] DATE CREATED AUTHOR AUTHOR'S ORGANIZ ATION 09/15/2020 [facility] DATE CREATED AUTHOR AUTHOR'S ORGANIZ ATION 11/16/2022 [facility] DATE CREATED AUTHOR AUTHOR'S ORGANIZ ATION 12/19/2022 [facility] DATE CREATED AUTHOR AUTHOR'S ORGANIZ ATION 07/11/2023 [facility] dical Specialists EPIC Care Team (unrecognized sect ion and content) 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 [employer] provides no warranty or guarantee of the accuracy or completeness of information in this document.
[2023-09-10 14:57] LABS: Lactate/Lactic Acid 1.5 mmol/L (0.4-2.0)
[2023-09-10 15:00] LABS: Basophils Percent Auto 0.4 % (0.2-2.0); Eosinophils Percent Auto 0.1 % (0.9-7.0); Hematocrit 48.5 % (36.0-48.0); Hemoglobin 15.3 g/dL (12.0-16.0); Immature Granulocytes Abs Auto 0.07 10^3/uL (0.00-0.03); Immature Granulocytes Pct Auto 0.6 % (0.0-0.5); Lymphocytes Absolute Auto 1.6 10^3/uL (1.2-3.8); Lymphocytes Percent Auto 14.9 % (20.5-60.0); Mean Corpuscular HGB Conc 31.5 g/dL (29.9-35.2); Mean Corpuscular Hemoglobin 29.4 pg (26.7-34.0); Mean Corpuscular Volume 93.1 fL (81.0-99.0); Monocytes Absolute Auto 0.9 10^3/uL (0.3-0.8); Monocytes Percent Auto 8.2 % (1.7-12.0); Neutrophils Absolute Auto 8.2 10^3/uL (1.4-6.5); Neutrophils Percent Auto 75.8 % (43.0-75.0); Platelet Count 131 10^3/uL (150-450); Red Blood Count 5.21 10^6/uL (4.20-5.40); White Blood Count 10.8 10^3/uL (4.0-11.0)
[2023-09-10 15:03] LABS: Erythrocyte Sedimentation Rate 66 mm/hr (<=30)
[2023-09-10 15:10] LABS: Alanine Aminotransferase 19 U/L (14-59); Albumin Globulin Ratio 0.6; Albumin Level 2.7 g/dL (3.4-5.0); Alkaline Phosphatase 61 U/L (46-116); Anion Gap 8.6; Aspartate Amino Transferase 18 U/L (15-37); BUN Creatinine Ratio 16.5; Bilirubin Total 0.6 mg/dL (0.2-1.0); C Reactive Protein 10.81 mg/dL (<=0.50); Calcium 8.4 mg/dL (8.5-10.1); Carbon Dioxide 32.6 mmol/L (21.0-32.0); Chloride 103 mmol/L (98-107); Estimated GFR (African America >60 (>=60); Estimated GFR (Non-African Ame >60 (>=60); Globulin 4.4 g/dL; Glucose 255 mg/dL (74-106); Potassium 4.2 mmol/L (3.5-5.1); Sodium 140 mmol/L (136-145); Total Protein 7.1 g/dL (6.4-8.2); Troponin I High Sensitivity 15.1 pg/mL (4.0-51.3)
[2023-09-10 15:22] LABS: INR 0.98; Prothrombin Time 10.4 sec (9.0-11.6)
[2023-09-10 15:27] LABS: Influenza A\\H3 DETECTED (NOT DETECTE)
[2023-09-10] MEDS: VANCOMYCIN HCL 2,000 MG in 0.9 % SODIUM CHLORIDE 500 ML 250 MG IV (16:00)
[2023-09-10] MEDS: OSELTAMIVIR PHOSPHATE 75 MG CAPSULE PO ×2 (16:00→21:16)
[2023-09-10 16:41] LABS: Bilirubin Urine NEGATIVE (NEGATIVE); Blood Urine TRACE-I (NEGATIVE); Clarity Urine SL CLOUDY (CLEAR); Color Urine YELLOW (YELLOW); Glucose Urine UA 250 mg/dL (NEGATIVE); Ketones Urine NEGATIVE (NEGATIVE); Leukocyte Esterase Urine NEGATIVE (NEGATIVE); Nitrite Urine NEGATIVE (NEGATIVE); Protein Urine 100 mg/dL (NEG/TRACE); Specific Gravity Urine >=1.030 (1.005-1.025); Urobilinogen Urine 0.2 EU/dL (0.2-1.0); pH Urine 5.5 (5.0-9.0)
[2023-09-10 16:44] LABS: Urine Microscopic Indicated YES
--- OUTSIDE RECORDS SUMMARY | 2023-09-10 16:50 | XMS_ITS | CCD ---
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 Role Phone James Desouza Primary Care [...] Attending Unavailable OLE RAMIREZ Consulting Unavailable AICHHOLZ, MAIL ORDER CLERK MCKAYLA Primary Care Unavailable OLE RAMIREZ Admitting Unavailable ANTONY SHRESTHA Consulting Unavailable ALONDRA ., UMBERTO Admitting Unavailable ALONDRA ., UMBERTO Attending Unavailable AICHHOLZ, MAIL ORDER CLERK MCKAYLA Primary Care Unavailable DR CICI CHING Consulting Unavailable MARYANNE POWER Consulting Unavailable GLENN KERR Consulting Unavailable YOMAIRA KERR Consulting Unavailable HATTIE GOFF Consulting Unavailable ALONDRA ., UMBERTO Consulting Unavailable TICO, STEPHANIE Attending Unavailable TICO, STEPHANIE Consulting Unavailable AICHHOLZ, MAIL ORDER CLERK MCKAYLA Primary Care Unavailable TICO, STEPHANIE Admitting Unavailable DR JULIA ACOSTA Admitting Unavailable AICHHOLZ, MAIL ORDER CLERK MCKAYLA Primary Care Unavailable REGLA Loera, DR DUMONT Attending Unavailable REGLA Loera, DR DUMONT Consulting Unavailable COLLIN HUERTAS Consulting Unavailable CECILIA KAUFMAN Admitting Unavailable CECILIA KAUFMAN Attending Unavailable AICHHOLZ, MAIL ORDER CLERK MCKAYLA Primary Care Unavailable RAFAEL GONGORA Attending Unavailable RAFAEL GONGORA Admitting Unavailable AICHHOLZ, MAIL ORDER CLERK MCKAYLA Primary Care Unavailable AICHHOLZ, MAIL ORDER CLERK MCKAYLA Admitting Unavailable AICHHOLZ, MAIL ORDER CLERK MCKAYLA Primary Care Unavailable AICHHOLZ, MAIL ORDER CLERK MCKAYLA Attending Unavailable AICHHOLZ, MAIL ORDER CLERK MCKAYLA Consulting Unavailable LAKSHMIPATHY ., NARENDRANATH Attending Anette vailable LAKSHMIPATHY ., NARENDRANATH Consulting Anette vailable LAKSHMIPATHY ., NARENDRANATH Admitting Anette vailable AICHHOLZ, MAIL ORDER CLERK MCKAYLA Primary Care Unavailable VALENZUELA ., GIL Consulting Unavailable MORTENSEN ., DR CHAPARRO Aguillon Attending Unavailable MORTENSEN ., DR CHAPARRO Aguillon Admitting Unavailable AICHHOLZ, MAIL ORDER CLERK MCKAYLA Primary Care Unavailable VALENZUELA ., GIL Consulting Unavailable MORTENSEN ., DR CHAPARRO Aguillon Admitting Unavailable AICHHOLZ, MAIL ORDER CLERK MCKAYLA Primary Care Unavailable MORTENSEN ., DR CHPAARRO Aguillon Attending Unavailable HALKER ., SUBHASH Consulting Unavailable LAKSHMIPATHY ., NARENDRANATH Admitting Anette vailable LAKSHMIPATHY ., NARENDRANATH Attending Anette vailable AICHHOLZ, MAIL ORDER CLERK MCKAYLA Primary Care Unavailable MORTENSEN ., DR CHAPARRO Aguillon Attending Unavailable MORTENSEN ., DR CHAPARRO Aguillon Admitting Unavailable VALENZUELA ., GIL Consulting Unavailable AICHOLZ, MAIL ORDER CLERK MCKAYLA Primary Care Unavailable VALENZUELA ., GIL Consulting Unavailable MORTENSEN ., DR CHAPARRO Aguillon Attending Unavailable MORTENSEN ., DR CHAPARRO Aguillon Admitting Unavailable AICHHOLZ, MAIL ORDER CLERK MCKAYLA Primary Care Unavailable HATTIE BRODERICK Attending Unavailable HATTIE BRODERICK Admitting Unavailable AICHHOLZ, MAIL ORDER CLERK MCKYALA Primary Care Unavailable AICHHOLZ, MAIL ORDER CLERK MCKAYLA Admitting Unavailable AICHHOLZ, MAIL ORDER CLERK MCKAYLA Consulting Unavailable AICHHOLZ, MAIL ORDER CLERK MCKAYLA Primary Care Unavailable AICHHOLZ, MAIL ORDER CLERK MCKAYLA Attending Unavailable AICHHOLZ, MAIL ORDER CLERK MCKAYLA Primary Care Unavailable MISC, DR LESLIE Admitting Unavailable MISC, DR LESLIE Attending Unavailable MISC, DOCTOR Consulting Unavailable DIAB ., MARIANO Admitting Unavailable DIAB ., MARIANO Attending Unavailable DIAB ., MARIANO Consulting Unavailable AICHHOLZ, MAIL ORDER CLERK MCKAYLA Primary Care Unavailable RICCO PICKARD Consulting Unavailable AICHHOLZ, MAIL ORDER CLERK MCKAYLA Admitting Unavailable AICHHOLZ, MAIL ORDER CLERK MCKAYLA Primary Care Unavailable AICHHOLZ, MAIL ORDER CLERK MCKAYLA Attending Unavailable AICHHOLZ, MAIL ORDER CLERK MCKAYLA Consulting Unavailable MAGDIEL, DR PATRICIA Joya Consulting Unavailable CECILIA KAUFMAN Attending Unavailable CECILIA KAUFMAN Admitting Unavailable MAGDIEL, DR PATRICIA Joya Consulting Unavailable AICHHOLZ, MAIL ORDER CLERK MCKAYLA Primary Care Unavailable CECILIA KAUFMAN Consulting Unavailable FESTUS ., DR CHAPARRO Aguillon Attending Unavailable FESTUS ., DR CHAPARRO Aguillon Consulting Unavailable FESTUS ., DR CHAPARRO Aguillon Admitting Unavailable AICHHOLZ, MAIL ORDER CLERK MCKAYLA Primary Care Unavailable HATTIE BRODERICK Attending Unavailable HATTIE BRODERICK Consulting Unavailable HATTIE BRODERICK Admitting Unavailable AICHHOLZ, MAIL ORDER CLERK MCKAYLA Primary Care Unavailable HATTIE BAUTISTA Unavailable AICHHOLZ, MAIL ORDER CLERK MCKAYLA Admitting Unavailable AICHHOLZ, MAIL ORDER CLERK MCKAYLA Attending Unavailable AICHHOLZ, MAIL ORDER CLERK MCKAYLA Consulting Unavailable AICHHOLZ, MAIL ORDER CLERK MCKAYLA Primary Care Unavailable AICHHOLZ, MCKAYLA Attending Unavailable Ty Amin MD Primary Care Provider [phone] Allergies Allergy Classification Reported Allergen(s) Allergy Type Date of Onset Reaction(s) Facility (1 source) No Known Medication Allergies; 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: [No Known Medication Allergies] Propensity to adverse reactions (disorder) [facility] Repository Medications Current Medications Medication Drug Class(es) Dates Sig (Normalized) Sig (Original) acetaminophen 325 mg / HYDROcodone bitartrate 5 mg oral tablet (6 sources) 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 0 Active take 1 tablet by vandana twice daily as needed [place] 5-325 MG 1 tablet as needed Orally [...] every week ergocalciferol (Vitamin D-2) 1.25 MG (62401 UT) capsule Take 1.25 mg by mouth [...] 02-06-2022 Chronic Other aftercare (1 source) Other 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 attack controller (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 therapy; 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: [OTH [facility] CURRENT DRUG THERAPY] Onset: 12-05-2022 Episodic Other aftercare (1 source) halfway (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; 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: [[facility] CURRENT USE OF ASPIRIN] Onset: 12-05-2022 Episodic Other aftercare (1 source) halfway (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; 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: [[facility] CURRENT USE OF INSULIN] Onset: 12-05-2022 Episodic [...] ocumentation in Social History. 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 Ashlie Hills Basophils/100 WBC (Bld) 0.1 % Critically low 0.2-2.0 [facility] Comment on above: Performed By: #### C BC #### [facility] [address] [place] [address] Dr. Ashlie Hills EO # 0.0 103/ul Normal 0.0-0.7 [facility] Comment on above: Performed By: #### C BC #### [facility] [address] [place] [address] Dr. Ashlie Hills Eosinophils/100 WBC (Bld) 0.0 % Critically low 0.9-7.0 [facility] Comment on above: Performed By: #### C BC #### [facility] [address] [place] [address] Dr. Ashlie Hills Erythrocyte distribution width (RBC) [Ratio] 14.9 % Normal 11.0-15.0 [facility] Comment on above: Performed By: #### C BC #### [facility] [address] [place] [address] Dr. Ashlie Hills Hematocrit (Bld) [Volume fraction] 46.2 % Normal 36.0-48.0 [facility] Comment on above: Performed By: #### C BC #### [facility] [address] [place] [address] Dr. Ashlie Hills Hemoglobin (Bld) [Mass/Vol] 14.7 g/dL Normal 12.0-16.0 [facility] Comment on above: Performed By: #### C BC #### [facility] [address] [place] [address] Dr. Ashlie Hills IG # 0.06 10e3/ul Critically high 0.00-0.03 [facility] Comment on above: Performed By: #### C BC #### [facility] [address] [address] [address] Ashlie Hills IG % 0.4 % Normal 0.0-0.5 [facility] Comment on above: Performed By: #### C BC #### [facility] [address] [place] [address] Dr. Ashlie Hills LYMPH # 1.3 103/ul Normal 1.2-3.8 [facility] Comment on above: Performed By: #### C BC #### [facility] [address] [place] [address] Dr. Ashlie Hills Lymphocytes/100 WBC (Bld) 9.4 % Critically low 20.5-60.0 [facility] Comment on above: Performed By: #### C BC #### [facility] [address] [place] [address] Dr. Ashlie Hills MANUAL DIFF REQ NO Normal [facility] Comment on above: Performed By: #### C BC #### [facility] [address] [place] [address] Dr. Ashlie Hills MCH (RBC) [Entitic mass] 28.4 pg Normal 26.7-34.0 [facility] Comment on above: Performed By: #### C BC #### [facility] [address] [place] [address] Dr. Ashlie Hills MCHC (RBC) [Mass/Vol] 31.8 g/dL Normal 29.9-35.2 [facility] Comment on above: Performed By: #### C BC #### [facility] [address] [place] [address] Dr. Ashlie Hills MCV (RBC) [Entitic vol] 89.4 fL Normal 81.0-99.0 [facility] Comment on above: Performed By: #### C BC #### [facility] [address] [place] [address] Dr. Ashlie Hills MONO # 0.5 103/ul Normal 0.3-0.8 [facility] Comment on above: Performed By: #### C BC #### [facility] [address] [place] [address] Dr. Ashlie Hills Monocytes/100 WBC (Bld) 3.4 % Normal 1.7-12.0 [facility] Comment on above: Performed By: #### C BC #### [facility] [address] [place] [address] Dr. Ashlie Hills NEUT # 11.8 103/ul Critically high 1.4-6.5 [facility] Comment on above: Performed By: #### C BC #### [facility] [address] [place] [address] Dr. Ashlie Hills Neutrophils/100 WBC (Bld) 86.7 % Critically high 43.0-75.0 [facility] Comment on above: Performed By: #### C BC #### [facility] [address] [place] [address] Dr. Ashlie Hills Platelet mean volume (Bld) [Entitic vol] 12.6 fL Normal 9.5-13.5 [facility] Comment on above: Performed By: #### C BC #### [facility] [address] [place] [address] Dr. Ashlie Hills PLT 133 103/ul Critically low 150-450 [facility] Comment on above: Performed By: #### C BC #### [facility] [address] [place] [address] Dr. Ashlie Hills RBC 5.17 106/ul Normal 4.20-5.40 [facility] Comment on above: Performed By: #### C BC #### [facility] [address] [place] [address] Dr. Ashlie Hills WBC 13.6 103/ul Critically high 4.0-11.0 [facility] Comment on above: Performed By: #### C BC #### [facility] [address] [place] [address] Dr. Ashlie Hills MAGNESIUMon 12-06-2022 Magnesium [Mass/Vol] 2.2 mg/dL Normal 1.8-2.4 [facility] Comment on above: Performed By: #### I NFLUAB #### [facility] [address] [place] [address] Dr. Ashlie Hills POINT OF CARE GLUCOSEon 11-08 Glucose [Mass/Vol] 340 mg/dL Critically high -106 [facility] Comment on above: Performed By: #### P OCGLUC #### [facility] [address] [place] [address] Dr. Ashlie Hills Glucose [Mass/Vol] 276 mg/dL Critically high [facility]106 [facility] Comment on above: Performed By: #### C BC #### [facility] [address] [place] [address] Dr. Ashlie Hills Glucose [Mass/Vol] 333 mg/dL Critically high [facility]106 [facility] Comment on above: Performed By: #### C BC #### [facility] [address] [place] [address] Dr. Ashlie Hills PROF CHEM 8 (BAS METB)on Anion gap [Moles/Vol] 10.9 mmol/L Normal [facility] Comment on above: Performed By: #### I NFLUAB #### [facility] [address] [place] [address] Dr. Ashlie Hills Calcium [Mass/Vol] 9.3 mg/dL Normal 8.5-10.1 [facility] Comment on above: Performed By: #### I NFLUAB #### [facility] [address] [place] [address] Dr. Ashlie Hills Chloride [Moles/Vol] 103 mmol/L Normal 98-107 [facility] Comment on above: Performed By: #### I NFLUAB #### [facility] [address] [place] [address] Dr. Ashlie Hills CO2 [Moles/Vol] 31.2 mmol/L Normal 21.0-32.0 [facility] Comment on above: Performed By: #### I NFLUAB #### [facility] [address] [place] [address] Dr. Ashlie Hills Creatinine [Mass/Vol] 0.96 mg/dL Normal 0.55-1.02 [facility] Comment on above: Performed By: #### I NFLUAB #### [facility] [address] [address] [address] Ashlie Hills EGFR-AF INDIAN >60 Normal >=60 [facility] Comment on above: Performed By: #### I NFLUAB #### [facility] [address] [place] [address] Dr. Ashlie Hills EGFR-NON AF INDIAN >60 Normal >=60 [facility] Comment on above: Performed By: #### I NFLUAB #### [facility] [address] [place] [address] Dr. Ashlie Hills Glucose [Mass/Vol] 288 mg/dL Critically high 74-106 [facility] Comment on above: Performed By: #### I NFLUAB #### [facility] [address] [place] [address] Dr. Ashlie Hills Potassium [Moles/Vol] 5.1 mmol/L Normal 3.5-5.1 [facility] Comment on above: Performed By: #### I NFLUAB #### [facility] [address] [place] [address] Dr. Ashlie Hills Sodium [Moles/Vol] 140 mmol/L Normal 136-145 [facility] Comment on above: Performed By: #### I NFLUAB #### [facility] [address] [place] [address] Dr. Ashlie Hills Urea nitrogen [Mass/Vol] 30.0 mg/dL Critically high 7.0-18.0 [facility] Comment on above: Performed By: #### I NFLUAB #### [facility] [address] [place] [address] Dr. Ashlie Hills Urea nitrogen/Creatinine [Mass ratio] 31.2 mg/mg Normal [facility] Comment on above: Performed By: #### I NFLUAB #### [facility] [address] [place] [address] Dr. Ashlie Hills CBC AUTO DIFFon 12-05-2022 BASO # 0.0 103/ul Normal 0.0-0.1 [facility] Comment on above: Performed By: #### C BC #### [facility] [address] [place] [address] Dr. Ashlie Hills Basophils/100 WBC (Bld) 0.4 % Normal 0.2-2.0 [facility] Comment on above: Performed By: #### C BC #### [facility] [address] [place] [address] Dr. Ashlie Hills EO # 0.0 103/ul Normal 0.0-0.7 [facility] Comment on above: Performed By: #### C BC #### [facility] [address] [place] [address] Dr. Ashlie Hills Eosinophils/100 WBC (Bld) 0.0 % Critically low 0.9-7.0 [facility] Comment on above: Performed By: #### C BC #### [facility] [address] [place] [address] Dr. Ashlie Hills Erythrocyte distribution width (RBC) [Ratio] 14.8 % Normal 11.0-15.0 [facility] Comment on above: Performed By: #### C BC #### [facility] [address] [place] [address] Dr. Ashlie Hills Hematocrit (Bld) [Volume fraction] 49.9 % Critically high 36.0-48.0 [facility] Comment on above: Performed By: #### C BC #### [facility] [address] [place] [address] Dr. Ashlie Hills Hemoglobin (Bld) [Mass/Vol] 15.7 g/dL Normal 12.0-16.0 [facility] Comment on above: Performed By: #### C BC #### [facility] [address] [place] [address] Dr. Ashlie Hills IG # 0.04 10e3/ul Critically high 0.00-0.03 [facility] Comment on above: Performed By: #### C BC #### [facility] [address] [place] [address] Dr. Ashlie Hills IG % 0.5 % Normal 0.0-0.5 [facility] Comment on above: Performed By: #### C BC #### [facility] [address] [address] [address] Ashlie Hills LYMPH # 1.1 103/ul Critically low 1.2-3.8 [facility] Comment on above: Performed By: #### C BC #### [facility] [address] [place] [address] Dr. Ashlie Hills Lymphocytes/100 WBC (Bld) 12.7 % Critically low 20.5-60.0 [facility] Comment on above: Performed By: #### C BC #### [facility] [address] [place] [address] Dr. Ashlie Hills MANUAL DIFF REQ NO Normal [facility] Comment on above: Performed By: #### C BC #### [facility] [address] [place] [address] Dr. Ashlie Hills MCH (RBC) [Entitic mass] 28.1 pg Normal 26.7-34.0 [facility] Comment on above: Performed By: #### C BC #### [facility] [address] [place] [address] Dr. Ashlie Hills MCHC (RBC) [Mass/Vol] 31.5 g/dL Normal 29.9-35.2 [facility] Comment on above: Performed By: #### C BC #### [facility] [address] [place] [address] Dr. Ashlie Hills MCV (RBC) [Entitic vol] 89.3 fL Normal 81.0-99.0 [facility] Comment on above: Performed By: #### C BC #### [facility] [address] [place] [address] Dr. Ashlie Hills MONO # 0.1 103/ul Critically low 0.3-0.8 [facility] Comment on above: Performed By: #### C BC #### [facility] [address] [place] [address] Dr. Ashlie Hills Monocytes/100 WBC (Bld) 1.3 % Critically low 1.7-12.0 [facility] Comment on above: Performed By: #### C BC #### [facility] [address] [place] [address] Dr. Ashlie Hills NEUT # 7.2 103/ul Critically high 1.4-6.5 [facility] Comment on above: Performed By: #### C BC #### [facility] [address] [place] [address] Dr. Ashlie Hills Neutrophils/100 WBC (Bld) 85.1 % Critically high 43.0-75.0 [facility] Comment on above: Performed By: #### C BC #### [facility] [address] [place] [address] Dr. Ashlie Hills Platelet mean volume (Bld) [Entitic vol] 12.2 fL Normal 9.5-13.5 [facility] Comment on above: Performed By: #### C BC #### [facility] [address] [place] [address] Dr. Ashlie Hills PLT 116 103/ul Critically low 150-450 [facility] Comment on above: Performed By: #### C BC #### [facility] [address] [place] [address] Dr. Ashlie Hills RBC 5.59 106/ul Critically high 4.20-5.[address] [facility] Comment on above: Performed By: #### C BC #### [facility] [address] [place] [address] Dr. Ashlie Hills WBC 8.5 103/ul Normal 4.0-11.0 [facility] Comment on above: Performed By: #### C BC #### [facility] [address] [place] [address] Dr. Ashlie Hills CTA CHEST WO W [...] by: HATTIE GOFF Date: 2022-12-05 01:52 Normal [facility] MAGNESIUMon 12-05-2022 Magnesium [Mass/Vol] 2.1 mg/dL Normal 1.8-2.4 [facility] Comment on above: Performed By: #### P OCGLUC #### [facility] [address] [address] [address] Ashlie Hills POINT OF CARE GLUCOSEon 11-08 Glucose [Mass/Vol] 293 mg/dL Critically high 74-106 [facility] Comment on above: Performed By: #### P OCGLUC #### [facility] [address] [address] [address] Ashlie Hills Glucose [Mass/Vol] 269 mg/dL Critically high 74-106 [facility] Comment on above: Performed By: #### P OCGLUC #### [facility] [address] [place] [address] Dr. Ashlie Hills Glucose [Mass/Vol] 223 mg/dL Critically high 74-106 [facility] Comment on above: Performed By: #### C VDAGS #### [facility] [address] [address] [address] Ashlie Hills PROF CHEM 8 (BAS METB)on Anion gap [Moles/Vol] 11.6 mmol/L Normal [facility] Comment on above: Performed By: #### P OCGLUC #### [facility] [address] [place] [address] Dr. Ashlie Hills Calcium [Mass/Vol] 9.2 mg/dL Normal 8.5-10.1 [facility] Comment on above: Performed By: #### P OCGLUC #### [facility] [address] [place] [address] Dr. Ashlie Hills Chloride [Moles/Vol] 102 mmol/L Normal 98-107 [facility] Comment on above: Performed By: #### P OCGLUC #### [facility] [address] [place] [address] Dr. Ashlie Hills CO2 [Moles/Vol] 28.7 mmol/L Normal 21.0-32.0 [facility] Comment on above: Performed By: #### P OCGLUC #### [facility] [address] [place] [address] Dr. Ashlie Hills Creatinine [Mass/Vol] 1.04 mg/dL Critically high 0.55-1.02 [facility] [facility] Comment on above: Performed By: #### P OCGLUC #### [facility] [address] [place] [address] Dr. Ashlie Hills EGFR-AF INDIAN >60 Normal >=60 [facility] Comment on above: Performed By: #### P OCGLUC #### [facility] [address] [place] [address] Dr. Ashlie Hills EGFR-NON AF INDIAN 56 mL/min/1.73m2 Critically low >=60 [facility] Comment on above: Performed By: #### P OCGLUC #### [facility] [address] [address] [address] Ashlie Hills Glucose [Mass/Vol] 231 mg/dL Critically high 74-106 [facility] Comment on above: Performed By: #### P OCGLUC #### [facility] [address] [address] [address] Ashlie Hills Potassium [Moles/Vol] 4.3 mmol/L Normal 3.5-5.1 [facility] Comment on above: Performed By: #### P OCGLUC #### [facility] [address] [address] [address] Ashlie Hills Sodium [Moles/Vol] 138 mmol/L Normal 136-145 [facility] Comment on above: Performed By: #### P OCGLUC #### [facility] [address] [address] [address] Ashlie Hills Urea nitrogen [Mass/Vol] 17.0 mg/dL Normal 7.0-18.0 [facility] Comment on above: Performed By: #### P OCGLUC #### [facility] [address] [place] [address] Dr. Ashlie Hills Urea nitrogen/Creatinine [Mass ratio] 16.3 mg/mg Normal [facility] Comment on above: Performed By: #### P OCGLUC #### [facility] [address] [address] [address] Ashlie Hills RESPIRATORY PANEL PLUSon Adenovirus Not detected Normal NOT DETECTED [facility] Comment on above: Performed By: #### C VDAGS #### [facility] [address] [place] [address] Dr. Ashlie Hills B. Parapertusis Not detected Normal NOT DETECTED The [facility] Comment on above: Performed By: #### C VDAGS #### [facility] [address] [place] [address] Dr. Ashlie Hills B. Pertussis Not detected Normal NOT DETECTED The [facility] Comment on above: Performed By: #### C VDAGS #### [facility] [address] [address] [address] Ashlie Hills Chlamydia Pneumoniae Not detected Normal NOT DETECTED The [facility] Comment on above: Performed By: #### C VDAGS #### [facility] [address] [place] [address] Dr. Ashlie Hills Coronavirus 229E Not detected Normal NOT DETECTED The [facility] Comment on above: Performed By: #### C VDAGS #### [facility] [address] [place] [address] Dr. Ashlie Hills Coronavirus HKU1 Not detected Normal NOT DETECTED The [facility] Comment on above: Performed By: #### C VDAGS #### [facility] [address] [place] [address] Dr. Ashlie Hills Coronavirus NL63 Not detected Normal NOT DETECTED The [facility] Comment on above: Performed By: #### C VDAGS #### [facility] [address] [place] [address] Dr. Ashlie Hills Coronavirus OC43 Not detected Normal NOT DETECTED The [facility] Comment on above: Performed By: #### C VDAGS #### [facility] [address] [place] [address] Dr. Ashlie Hills Influenza A H1 Not detected Normal NOT DETECTED The [facility] Comment on above: Performed By: #### C VDAGS #### [facility] [address] [place] [address] Dr. Ashlie Hills Influenza A H1 2009 Not detected Normal NOT DETECTED [facility] Comment on above: Performed By: #### C VDAGS #### [facility] [address] [place] [address] Dr. Ashlie Hills Influenza A H3 Not detected Normal NOT DETECTED The [facility] Comment on above: Performed By: #### C VDAGS #### [facility] [address] [place] [address] Dr. Ashlie Hills Influenza B Not detected Normal NOT DETECTED The [facility] Comment on above: Performed By: #### C VDAGS #### [facility] [address] [address] [address] Ashlie Hills Metapneumovirus Not detected Normal NOT DETECTED The [facility] Comment on above: Performed By: #### C VDAGS #### [facility] [address] [address] [address] Ashlie Hills Mycoplas. Pneumoniae Not detected Normal NOT DETECTED The [facility] Comment on above: Performed By: #### C VDAGS #### [facility] [address] [place] [address] Dr. Ashlie Hills Parainfluenza 1 Not detected Normal NOT DETECTED [facility] Comment on above: Performed By: #### C VDAGS #### [facility] [address] [place] [address] Dr. Ashlie Hills Parainfluenza 2 Not detected Normal NOT DETECTED [facility] Comment on above: Performed By: #### C VDAGS #### [facility] [address] [place] [address] Dr. Ashlie Hills Parainfluenza 3 Detected Abnormal NOT DETECTED [facility] Comment on above: Performed By: #### C VDAGS #### [facility] [address] [place] [address] Dr. Ashlie Hills Parainfluenza 4 Not detected Normal NOT DETECTED The [facility] Comment on above: Performed By: #### C VDAGS #### [facility] [address] [place] [address] Dr. Ashlie Hills Rhino/Enterovirus Not detected Normal NOT DETECTED The [facility] Comment on above: Performed By: #### C VDAGS #### [facility] [address] [place] [address] Dr. Ashlie DE PAZ Header 1 RESPIRATORY PANEL: VIRUSES Normal The [facility] Comment on above: Performed By: #### C VDAGS #### [facility] [address] [place] [address] Dr. Ashlie DE PAZ Header 2 RESPIRATORY PANEL: BACTERIA Normal The [facility] Comment on above: Performed By: #### C VDAGS #### [facility] [address] [place] [address] Dr. Ashlie Hills RSV Not detected Normal NOT DETECTED The [facility] Comment on above: Performed By: #### C VDAGS #### [facility] [address] [place] [address] Dr. Ashlie Hills SARS-CoV-2 (COVID-19) RNA MADDY+probe Ql (Unsp spec) Not detected Normal NOT DETECTED [facility] Comment on above: Performed By: #### C VDAGS #### [facility] [address] [place] [address] Dr. Ashlie Hills XR CHEST 1 Von [...] MARYANNE POWER Date: 2022-12-04 22:23 Normal The [facility] BLOOD GASES BTYon 12-04-2022 02 MODE ROOM AIR Normal [facility] Comment on above: Performed By: #### C BC #### [facility] [address] [place] [address] Dr. Ashlie Hills ALLENS TEST Positive Normal [facility] Comment on above: Performed By: #### C BC #### [facility] [address] [place] [address] Dr. Ashlie Hills Base excess Calc (Bld) [Moles/Vol] 5.4 mmol/L Critically high -2.0-2.0 [facility] Comment on above: Performed By: #### C BC #### [facility] [address] [place] [address] Dr. Ashlie Hills BIPAP PRESSURE Normal [facility] Comment on above: Performed By: #### C BC #### [facility] [address] [place] [address] Dr. Ashlie Hills CPAP Normal [facility] Comment on above: Performed By: #### C BC #### [facility] [address] [address] [address] Ashlie Hills FIO2 Normal [facility] Comment on above: Performed By: #### C BC #### [facility] [address] [place] [address] Dr. Ashlie Hills HCO3 (Bld) [Moles/Vol] 30.8 mmol/L Critically high 22.0-26.0 [facility] Comment on above: Performed By: #### C BC #### [facility] [address] [place] [address] Dr. Ashlie Hills LPM Normal [facility] Comment on above: Performed By: #### C BC #### [facility] [address] [place] [address] Dr. Ashlie Hills MINUTE VOLUME Normal [facility] Comment on above: Performed By: #### C BC #### [facility] [address] [place] [address] Dr. Ashlie Hills Oxygen (Bld) [Partial pressure] 46.3 mm[Hg] Critically low 80.0-100.0 [facility] Comment on above: Performed By: #### C BC #### [facility] [address] [place] [address] Dr. Ashlie Hills Oxygen saturation in Blood 83.9 % Critically low 95.0-100.0 [facility] Comment on above: Performed By: #### C BC #### [facility] [address] [place] [address] Dr. Ashlie Hills PCO2 54.2 mmHg Critically high 35.0-45.0 The [facility] Comment on above: Performed By: #### C BC #### [facility] [address] [place] [address] Dr. Ashlie Hills PEEP [facility] Comment on above: Performed By: #### C BC #### [facility] [address] [place] [address] Dr. Ashlie Hills pH (Bld) 7.363 [pH] Normal 7.350-7.450 [facility] Comment on above: Performed By: #### C BC #### [facility] [address] [place] [address] Dr. Ashlie Hills [facility] Comment on above: Performed By: #### C BC #### [facility] [address] [place] [address] Dr. Ashlie Hills [facility] Comment on above: Performed By: #### C BC #### [facility] [address] [place] [address] Dr. Ashlie Hills PUNCTURE SITE LR [facility] Comment on above: Performed By: #### C BC #### [facility] [address] [place] [address] Dr. Ashlie Hills [facility] Comment on above: Performed By: #### C BC #### [facility] [address] [place] [address] Dr. Ashlie Hills [facility] Comment on above: Performed By: #### C BC #### [facility] [address] [place] [address] Dr. Ashlie Hills [facility] Comment on above: Performed By: #### C BC #### [facility] [address] [place] [address] Dr. Ashlie Hills BNPon 12-04-2022 Natriuretic peptide B (Bld) [Mass/Vol] 76.0 pg/mL Normal <=900.0 [facility] Comment on above: Performed By: #### P OCGLUC #### [facility] [address] [place] [address] Dr. Ashlie Hills CBC AUTO DIFFon 12-04-2022 BASO # 0.1 103/ul Normal 0.0-0.1 [facility] Comment on above: Performed By: #### C BC #### [facility] [address] [place] [address] Dr. Ashlie Hills Basophils/100 WBC (Bld) 0.6 % Normal 0.2-2.0 [facility] Comment on above: Performed By: #### C BC #### [facility] [address] [place] [address] Dr. Ashlie Hills EO # 0.2 103/ul Normal 0.0-0.7 The [facility] Comment on above: Performed By: #### C BC #### [facility] [address] [place] [address] Dr. Ashlie Hills Eosinophils/100 WBC (Bld) 1.9 % Normal 0.9-7.0 The [facility] Comment on above: Performed By: #### C BC #### [facility] [address] [place] [address] Dr. Ashlie Hills Erythrocyte distribution width (RBC) [Ratio] 15.0 % Normal 11.0-15.0 The [facility] Comment on above: Performed By: #### C BC #### [facility] [address] [place] [address] Dr. Ashlie Hills Hematocrit (Bld) [Volume fraction] 49.1 % Critically high 36.0-48.0 [facility] Comment on above: Performed By: #### C BC #### [facility] [address] [place] [address] Dr. Ashlie Hills Hemoglobin (Bld) [Mass/Vol] 15.6 g/dL Normal 12.0-16.0 [facility] Comment on above: Performed By: #### C BC #### [facility] [address] [place] [address] Dr. Ashlie Hills IG # 0.02 10e3/ul Normal 0.00-0.03 The [facility] Comment on above: Performed By: #### C BC #### [facility] [address] [place] [address] Dr. Ashlie Hills IG % 0.2 % Normal 0.0-0.5 The [facility] Comment on above: Performed By: #### C BC #### [facility] [address] [place] [address] Dr. Ashlie Hills LYMPH # 2.8 103/ul Normal 1.2-3.8 The [facility] Comment on above: Performed By: #### C BC #### [facility] [address] [place] [address] Dr. Ashlie Hills Lymphocytes/100 WBC (Bld) 29.9 % Normal 20.5-60.0 The [facility] Comment on above: Performed By: #### C BC #### [facility] [address] [place] [address] Dr. Ashlie Hills MANUAL DIFF REQ NO Normal The [facility] Comment on above: Performed By: #### C BC #### [facility] [address] [place] [address] Dr. Ashlie Hills MCH (RBC) [Entitic mass] 28.5 pg Normal 26.7-34.0 The [facility] Comment on above: Performed By: #### C BC #### [facility] [address] [place] [address] Dr. Ashlie Hills MCHC (RBC) [Mass/Vol] 31.8 g/dL Normal 29.9-35.2 The [facility] Comment on above: Performed By: #### C BC #### [facility] [address] [place] [address] Dr. Ashlie Hills MCV (RBC) [Entitic vol] 89.8 fL Normal 81.0-99.0 The [facility] Comment on above: Performed By: #### C BC #### [facility] [address] [place] [address] Dr. Ashlie Hills MONO # 1.0 103/ul Critically high 0.3-0.8 The [facility] Comment on above: Performed By: #### C BC #### [facility] [address] [place] [address] Dr. Ashlie Hills Monocytes/100 WBC (Bld) 10.6 % Normal 1.7-12.0 The [facility] Comment on above: Performed By: #### C BC #### [facility] [address] [place] [address] Dr. Ashlie Hills NEUT # 5.3 103/ul Normal 1.4-6.5 The [facility] Comment on above: Performed By: #### C BC #### [facility] [address] [place] [address] Dr. Ashlie Hills Neutrophils/100 WBC (Bld) 56.8 % Normal 43.0-75.0 [facility] Comment on above: Performed By: #### C BC #### [facility] [address] [place] [address] Dr. Ashlie Hills Platelet mean volume (Bld) [Entitic vol] 12.5 fL Normal 9.5-13.5 [facility] Comment on above: Performed By: #### C BC #### [facility] [address] [place] [address] Dr. Ashlie Hills PLT 109 103/ul Critically low 150-450 [facility] Comment on above: Performed By: #### C BC #### [facility] [address] [place] [address] Dr. Ashlie Hills RBC 5.47 106/ul Critically high 4.20-5.40 [facility] Comment on above: Performed By: #### C BC #### [facility] [address] [place] [address] Dr. Ashlie Hills WBC 9.4 103/ul Normal 4.0-11.0 [facility] Comment on above: Performed By: #### C BC #### [facility] [address] [place] [address] Dr. Ashlie Hills PROF 14(COMP METB)on 023 Albumin [Mass/Vol] 2.9 g/dL Critically low 3.4-5.0 [facility] Comment on above: Performed By: #### C BC #### [facility] [address] [place] [address] Dr. Ashlie Hills Albumin/Globulin [Mass ratio] 0.6 {ratio} Normal [facility] Comment on above: Performed By: #### C BC #### [facility] [address] [place] [address] Dr. Ashlie Hills ALP [Catalytic activity/Vol] 64 U/L Normal 46-116 [facility] Comment on above: Performed By: #### C BC #### [facility] [address] [place] [address] Dr. Ashlie Hills ALT [Catalytic activity/Vol] 16 U/L Normal 14-59 [facility] Comment on above: Performed By: #### C BC #### [facility] [address] [address] [address] Ashlie Hills Anion gap [Moles/Vol] 9.6 mmol/L Normal [facility] Comment on above: Performed By: #### C BC #### [facility] [address] [address] [address] Ashlie Hills AST [Catalytic activity/Vol] 16 U/L Normal 15-37 [facility] Comment on above: Performed By: #### C BC #### [facility] [address] [address] [address] Ashlie Hills Bilirubin [Mass/Vol] 0.5 mg/dL Normal 0.2-1.0 [facility] Comment on above: Performed By: #### C BC #### [facility] [address] [place] [address] Dr. Ashlie Hills Calcium [Mass/Vol] 8.7 mg/dL Normal 8.5-10.1 [facility] Comment on above: Performed By: #### C BC #### [facility] [address] [place] [address] Dr. Ashlie Hills Chloride [Moles/Vol] 103 mmol/L Normal 98-107 [facility] Comment on above: Performed By: #### C BC #### [facility] [address] [place] [address] Dr. Ashlie Hills CO2 [Moles/Vol] 30.7 mmol/L Normal 21.0-32.[address] [facility] Comment on above: Performed By: #### C BC #### [facility] [address] [address] [address] Ashlie Hills Creatinine [Mass/Vol] 0.96 mg/dL Normal 0.55-1.02 [facility] Comment on above: Performed By: #### C BC #### [facility] [address] [address] [address] Ashlie Hills EGFR-AF INDIAN >60 Normal >=[address] [facility] Comment on above: Performed By: #### C BC #### [facility] [address] [address] [address] Ashlie Hills EGFR-NON AF INDIAN >60 Normal >=60 [facility] Comment on above: Performed By: #### C BC #### [facility] [address] [address] [address] Ashlie Hills Globulin (S) [Mass/Vol] 4.7 g/dL Normal [facility] Comment on above: Performed By: #### C BC #### [facility] [address] [address] [address] Ashlie Hills Glucose [Mass/Vol] 170 mg/dL Critically high 74-106 [facility] Comment on above: Performed By: #### C BC #### [facility] [address] [address] [address] Ashlie Hills Potassium [Moles/Vol] 4.3 mmol/L Normal 3.5-5.1 [facility] Comment on above: Performed By: #### C BC #### [facility] [address] [address] [address] Ashlie Hills Protein [Mass/Vol] 7.6 g/dL Normal 6.4-8.2 [facility] Comment on above: Performed By: #### C BC #### [facility] [address] [address] [address] Ashlie Hills Sodium [Moles/Vol] 139 mmol/L Normal 136-145 [facility] Comment on above: Performed By: #### C BC #### [facility] [address] [address] [address] Ashlie Hills Urea nitrogen [Mass/Vol] 16.0 mg/dL Normal 7.0-18.0 [facility] Comment on above: Performed By: #### C BC #### [facility] [address] [address] [address] Ashlie Hills Urea nitrogen/Creatinine [Mass ratio] 16.7 mg/mg Normal [facility] Comment on above: Performed By: #### C BC #### [facility] [address] [address] [address] Ashlie Hills SYMPTOMATIC COVID-19 ANTIGEN on 12-04-2022 EUA Statement SEE BELOW Normal [facility] Comment on above: Result [...] sooner. Performed By: #### C VDAGS #### [facility] [address] [place] [address] Dr. Ashlie Hills SARS-CoV-2 (COVID-19) RNA MADDY+probe Ql (Unsp spec) Negative Normal NEGATIVE The [facility] Comment on above: Performed By: #### C VDAGS #### [facility] [address] [place] [address] Dr. Ashlie Hills TROPONIN, HIGH SENSITIVITYon 12-04-2022 HSTROP 8.9 pg/mL Normal 4.0-51.3 [facility] Comment on above: Result Comment: CUT- OFF POINTS HAVE BEEN ESTABLISHED BASED ON THE FOURTH UNIVERSAL DEFINITIONS OF MYOCARDIAL INFARCTION. THE UPPER REFERENCE LIMIT (URL) OF TROPONIN, DEFINED THE 99TH PERCENTILE OF cTnI DISTRIBUTION IN A REFERENCE POPULATION, HAS BEEN CONFIRMED THE DECISION THRESHOLD FOR MD DIAGNOSIS. Performed By: #### P OCGLUC #### [facility] [place] [facility] [address] [place] [address] Dr. Ashlie Hills MICROALBUMIN, RAND URon - mALB 35.8 mg/dL Critically high <=30.0 The [facility] Comment on above: Performed By: #### C VDAGS #### [facility] [place] [facility] [address] [address] [address] Ashlie Hills UA RANDOM W/MICROSCOPICon BACTERIA NONE SEEN Normal NONE SEEN [facility] Comment on above: Performed By: #### C VDAGS #### [facility] [place] [facility] [address] [address] [address] Ashlie Hills Bilirubin Ql (U) Negative Normal NEGATIVE The [facility] Comment on above: Performed By: #### C VDAGS #### [facility] [place] [facility] [address] [place] [address] Dr. Ashlie Hills CAST SEEN Abnormal NONE SEEN [facility] Comment on above: Performed By: #### C VDAGS #### [facility] [place] [facility] [address] [place] [address] Dr. Ashlie Hills Clarity (U) CLEAR Normal CLEAR [facility] Comment on above: Performed By: #### C VDAGS #### [facility] [place] [facility] [address] [place] [address] Dr. Ashlie Hills Color (U) YELLOW Normal YELLOW The [facility] [place] Comment on above: Performed By: #### C VDAGS #### [facility] [place] [facility] [address] [place] [address] Dr. Ashlie Hills Crystals LM Nom (Urine sed) NONE SEEN Normal NONE SEEN [facility] Comment on above: Performed By: #### C VDAGS #### [facility] [place] [facility] [address] [place] [address] Dr. Ashlie Hills Epithelial cells LM Ql (Urine sed) MODERATE Abnormal NONE SEEN /RARE The [facility] [place] Comment on above: Performed By: #### C VDAGS #### [facility] [place] [facility] [address] [place] [address] Dr. Ashlie Hills Glucose Ql (U) Negative Normal NEGATIVE The [facility] Comment on above: Performed By: #### C VDAGS #### [facility] [place] [facility] [address] [place] [address] Dr. Ashlie Hills Hemoglobin Ql (U) TRACE-INTACT Abnormal NEGATIVE [facility] Comment on above: Performed By: #### C VDAGS #### [facility] [place] [facility] [address] [place] [address] Dr. Ashlie Hills Ketones Ql (U) Negative Normal NEGATIVE The [facility] Comment on above: Performed By: #### C VDAGS #### [facility] [place] [facility] [address] [place] [address] Dr. Ashlie Hills LEUKOCYTES Negative Normal NEGATIVE [facility] Comment on above: Performed By: #### C VDAGS #### [facility] [place] [facility] [address] [place] [address] Dr. Aslhie Hills MUCOUS NONE SEEN Normal NONE SEEN The [facility] [place] Comment on above: Performed By: #### C VDAGS #### [facility] [place] [facility] [address] [place] [address] Dr. Ashlie Hills Nitrite Ql (U) Negative Normal NEGATIVE The [facility] Comment on above: Performed By: #### C VDAGS #### [facility] [place] [facility] [address] [place] [address] Dr. Ashlie Hills pH (U) 5.0 [pH] Normal 5-9 [facility] Comment on above: Performed By: #### C VDAGS #### [facility] [place] [facility] [address] [place] [address] Dr. Ashlie Hills RBC 0-2 Normal 0-2 [facility] Comment on above: Performed By: #### C VDAGS #### [facility] [place] [facility] [address] [place] [address] Dr. Ashlie Hills SPEC GRAVITY 1.030 Abnormal 1.005-<=1.025 The [facility] Comment on above: Performed By: #### C VDAGS #### [facility] [place] [facility] [address] [place] [address] Dr. Ashlie Hills UA PROTEIN 100 mg/dl Abnormal NEGATIVE/ TRACE The [facility] [place] Comment on above: Performed By: #### C VDAGS #### [facility] [place] [facility] [address] [place] [address] Dr. Ashlie Hills Urobilinogen Qn (U) 0.2 {Little'U}/dL Normal 0.2 - 1. 0 [facility] Comment on above: Performed By: #### C VDAGS #### [facility] [place] [facility] [address] [place] [address] Dr. Ashlie Hills WBC NONE SEEN Normal NONE SEEN The [facility] [place] Comment on above: Performed By: #### C VDAGS #### [facility] [place] [facility] [address] [place] [address] Dr. Ashlie Hills CBC AUTO DIFFon 11-22-2022 BASO # 0.0 103/ul Normal 0.0-0.1 [facility] Comment on above: Performed By: #### C BC #### [facility] [place] [facility] [address] [place] [address] Dr. Ashlie Hills Basophils/100 WBC (Bld) 0.3 % Normal 0.2-2.0 [facility] Comment on above: Performed By: #### C BC #### [facility] [place] [facility] [address] [place] [address] Dr. Ashlie Hills EO # 0.4 103/ul Normal 0.0-0.7 [facility] Comment on above: Performed By: #### C BC #### [facility] [place] [facility] [address] [place] [address] Dr. Ashlie Hills Eosinophils/100 WBC (Bld) 3.0 % Normal 0.9-7.0 [facility] Comment on above: Performed By: #### C BC #### [facility] [place] [facility] [address] [place] [address] Dr. Ashlie Hills Erythrocyte distribution width (RBC) [Ratio] 15.3 % Critically high 11.0-15.0 The [facility] [place] Comment on above: Performed By: #### C BC #### [facility] [place] [facility] [address] [place] [address] Dr. Ashlie Hills Hematocrit (Bld) [Volume fraction] 52.4 % Critically high 36.0-48.0 [facility] Comment on above: Performed By: #### C BC #### [facility] [place] [facility] [address] [place] [address] Dr. Ashlie Hills Hemoglobin (Bld) [Mass/Vol] 16.8 g/dL Critically high 12.0-16.0 [facility] Comment on above: Performed By: #### C BC #### [facility] [place] [facility] [address] [address] [address] Ashlie Hills IG # 0.04 10e3/ul Critically high 0.00-0.03 [facility] Comment on above: Performed By: #### C BC #### [facility] [place] [facility] [address] [place] [address] Dr. Ashlie Hills IG % 0.3 % Normal 0.0-0.5 [facility] Comment on above: Performed By: #### C BC #### [facility] [place] [facility] [address] [place] [address] Dr. Ashlie Hills LYMPH # 4.5 103/ul Critically high 1.2-3.8 [facility] Comment on above: Performed By: #### C BC #### [facility] [place] [facility] [address] [place] [address] Dr. Ashlie Hills Lymphocytes/100 WBC (Bld) 33.2 % Normal 20.5-60.0 [facility] Comment on above: Performed By: #### C BC #### [facility] [place] [facility] [address] [place] [address] Dr. Ashlie Hills MANUAL DIFF REQ NO Normal [facility] Comment on above: Performed By: #### C BC #### [facility] [place] [facility] [address] [place] [address] Dr. Ashlie Hills MCH (RBC) [Entitic mass] 28.0 pg Normal 26.7-34.0 [facility] Comment on above: Performed By: #### C BC #### [facility] [place] [facility] [address] [place] [address] Dr. Ashlie Hills MCHC (RBC) [Mass/Vol] 32.1 g/dL Normal 29.9-35.2 [facility] Comment on above: Performed By: #### C BC #### [facility] [place] [facility] [address] [place] [address] Dr. Ashlie Hills MCV (RBC) [Entitic vol] 87.3 fL Normal 81.0-99.0 [facility] Comment on above: Performed By: #### C BC #### [facility] [place] [facility] [id number] Ashlie Hills MONO # 0.8 103/ul Normal 0.3-0.8 The [facility] [place] Comment on above: Performed By: #### C BC #### [facility] [place] [facility] [address] [place] [address] Dr. Ashlie Hills Monocytes/100 WBC (Bld) 5.7 % Normal 1.7-12.0 The [facility] [place] Comment on above: Performed By: #### C BC #### [facility] [place] [facility] [address] [place] [address] Dr. Ashlie Hills NEUT # 7.8 103/ul Critically high 1.4-6.5 The [facility] Comment on above: Performed By: #### C BC #### [facility] [place] [facility] [address] [place] [address] Dr. Ashlie Hills Neutrophils/100 WBC (Bld) 57.5 % Normal 43.0-75.0 The [facility] Comment on above: Performed By: #### C BC #### [facility] [place] [facility] [address] [place] [address] Dr. Ashlie Hills Platelet mean volume (Bld) [Entitic vol] 12.0 fL Normal 9.5-13.5 The [facility] [place] Comment on above: Performed By: #### C BC #### [facility] [place] [facility] [address] [place] [address] Dr. Ashlie Hills PLT 152 103/ul Normal 150-450 The [facility] [place] Comment on above: Performed By: #### C BC #### [facility] [place] [facility] [address] [place] [address] Dr. Ashlie Hills RBC 6.00 106/ul Critically high 4.20-5.[address] [facility] Comment on above: Performed By: #### C BC #### [facility] [place] [facility] [address] [place] [address] Dr. Ashlie Hills WBC 13.6 103/ul Critically high 4.0-11.[address] [facility] Comment on above: Performed By: #### C BC #### [facility] [place] [facility] [address] [place] [address] Dr. Ashlie Hills LIPID PROFILEon 11-22-2022 CHOL-HDL RATIO NORM SEE BELOW Normal [facility] Comment on above: Result Comment: 3.3 - 4.4 LOW RISK 4.4 - 7.1 AVERAGE RISK 7.1 - 11.0 MODERATE RISK >11.0 HIGH RISK Performed By: #### C BC #### [facility] [place] [facility] [address] [place], [place] [address] Dr. Ashlie Hills Cholesterol [Mass/Vol] 139 mg/dL Normal <=200 [facility] Comment on above: Performed By: #### C BC #### [facility] [place] [facility] [address] [place], [place] [address] Dr. Ashlie Hills Cholesterol in HDL [Mass/Vol] 35 mg/dL Critically low 40-60 [facility] Comment on above: Performed By: #### C BC #### [facility] [place] [facility] [address] [place], [place] [address] Dr. Ashlie Hills Cholesterol in LDL [Mass/Vol] 67.4 mg/dL Normal [facility] Comment on above: Performed By: #### C BC #### [facility] [place] [facility] [address] [place], [place] [address] Dr. Ashlie Hills Cholesterol.total/Ch olesterol in HDL [Mass ratio] 4.0 {ratio} Normal [facility] Comment on above: Performed By: #### C BC #### [facility] [place] [facility] [address] [place], [place] [address] Dr. Ashlie Hills HDL NORMAL > or = 60 mg/dl - LOW CARDIOVASCULAR RISK <40 mg/dl - HIGH CARDIOVASCULAR RISK Normal [facility] Comment on above: Performed By: #### C BC #### [facility] [place] [facility] [address] [place], [place] [address] Dr. Ashlie Hills LDL CALC NORMAL SEE BELOW Normal [facility] Comment on above: Result Comment: <100 mg/dl OPTIMAL 100 - 129 mg/dl NEAR OR ABOVE OPTIMAL 130 - 159 mg/dl BORDERLINE HIGH 160 - 189 mg/dl HIGH >190 mg/dl VERY HIGH Performed By: #### C BC #### [facility] [place] [facility] [id number] Ashlie Hills Triglyceride [Mass/Vol] 183 mg/dL Critically high <=150 [facility] Comment on above: Performed By: #### C BC #### [facility] [place] [facility] [address] [place], [place] [address] Dr. Ashlie Hills VLDL CALC 36.6 mg/dL Normal [facility] Comment on above: Performed By: #### C BC #### [facility] [place] [facility] [address] [place], [place] [address] Dr. 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 LOCATION: The [facility] [place] BREAST COMPOSITION: Almost entirely fatty. FINDINGS: DIAGNOSTIC [...] M.D. on 11/22/2022 at 12:09 Normal The [facility] [place] PROF 14(COMP METB)on 05-17-2 023 Albumin [Mass/Vol] 3.0 g/dL Critically low 3.4-5.0 Th e [facility] [place] Comment on above: Performed By: #### C BC #### [facility] [place] [facility] [address] [place] [address] Dr. Ashlie Hills Albumin/Globulin [Mass ratio] 0.6 {ratio} Normal [facility] Comment on above: Performed By: #### C BC #### [facility] [place] [facility] [address] [address] [address] Ashlie Hills ALP [Catalytic activity/Vol] 68 U/L Normal 46-116 [facility] Comment on above: Performed By: #### C BC #### [facility] [place] [facility] [address] [place] [address] Dr. Ashlie Hills ALT [Catalytic activity/Vol] 14 U/L Normal 14-59 [facility] Comment on above: Performed By: #### C BC #### [facility] [place] [facility] [address] [place] [address] Dr. Ashlie Hills Anion gap [Moles/Vol] 12.1 mmol/L Normal [facility] Comment on above: Performed By: #### C BC #### [facility] [place] [facility] [address] [place] [address] Dr. Ashlie Hills AST [Catalytic activity/Vol] 9 U/L Critically low 15-37 [facility] Comment on above: Performed By: #### C BC #### [facility] [place] [facility] [address] [place] [address] Dr. Ashlie Hills Bilirubin [Mass/Vol] 0.4 mg/dL Normal 0.2-1.0 [facility] Comment on above: Performed By: #### C BC #### [facility] [place] [facility] [address] [place] [address] Dr. Ashlie Hills Calcium [Mass/Vol] 9.0 mg/dL Normal 8.5-10.1 [facility] Comment on above: Performed By: #### C BC #### [facility] [place] [facility] [address] [place] [address] Dr. Ashlie Hills Chloride [Moles/Vol] 105 mmol/L Normal 98-107 [facility] Comment on above: Performed By: #### C BC #### [facility] [place] [facility] [address] [address] [address] Ashlie Hills CO2 [Moles/Vol] 30.7 mmol/L Normal 21.0-32.0 [facility] Comment on above: Performed By: #### C BC #### [facility] [place] [facility] [address] [address] [address] Ashlie Hills Creatinine [Mass/Vol] 0.77 mg/dL Normal 0.55-1.02 [facility] Comment on above: Performed By: #### C BC #### [facility] [place] [facility] [address] [address] [address] Ashlie Hills EGFR-AF INDIAN >60 Normal >=60 [facility] Comment on above: Performed By: #### C BC #### [facility] [place] [facility] [address] [address] [address] Ashlie Hills EGFR-NON AF INDIAN >60 Normal >=60 [facility] Comment on above: Performed By: #### C BC #### [facility] [place] [facility] [address] [address] [address] Ashlie Hills Globulin (S) [Mass/Vol] 4.8 g/dL Normal [facility] Comment on above: Performed By: #### C BC #### [facility] [place] [facility] [address] [address] [address] Ashlie Hills Glucose [Mass/Vol] 162 mg/dL Critically high 74-106 [facility] Comment on above: Performed By: #### C BC #### [facility] [place] [facility] [address] [address] [address] Ashlie Hills Potassium [Moles/Vol] 3.8 mmol/L Normal 3.5-5.1 [facility] Comment on above: Performed By: #### C BC #### [facility] [place] [facility] [address] [address] [address] Ashlie Hills Protein [Mass/Vol] 7.8 g/dL Normal 6.4-8.2 [facility] Comment on above: Performed By: #### C BC #### [facility] [place] [facility] [address] [place], [place] [address] Dr. Ashlie Hills Sodium [Moles/Vol] 144 mmol/L Normal 136-145 [facility] Comment on above: Performed By: #### C BC #### [facility] [place] [facility] [address] [address] [address] Ashlie Hills Urea nitrogen [Mass/Vol] 24.0 mg/dL Critically high 7.0-18.0 [facility] Comment on above: Performed By: #### C BC #### [facility] [place] [facility] [address] [address] [address] Ashlie Hills Urea nitrogen/Creatinine [Mass ratio] 31.2 mg/mg Normal [facility] Comment on above: Performed By: #### C BC #### [facility] [place] [facility] [address] [address] [address] Ashlie Hills Patient Educationon 11-16-19 23 [...] Spinach (cooked), rhubarb, beets, sweet potatoes, and American chard. ? Peanuts. ? Potato chips, liberian fries, and baked potatoes with skin on. ? Nuts and nut products. ? Chocolate. ? If you regularly take a diuretic medicine, make sure to eat at least 1 or 2 servings of fruits or vegetables that are high in potassium each day. These include: ? Avocado. ? Banana. ? [place], prune, carrot, or tomato juice. ? Baked [...] fish oil, or vitamin B6. ? Take [id number]-[id number] and prescription medicines only as told by your health care provider. These include supplements. What foods should I limit? Limit your in (more content not included)... Normal [facility] Reminderson 11-15-2022 Reminders - From: Maria Elena Negrete To: SHEA Vega; Sent: 11/15/2022 14:23:36 EDT Show up: 04/17/2024 14:23:00 EDT Subject: Dani CT AP w con Due Date/Time: 05/18/2024 13:23:00 EST Please schedule [address] AP w con for adrenal mass. Normal [facility] Urology Office/Clinic Noteon 11-15-2022 Urology Office/Clinic Note [...] Contact Information SILVIA HOWELL, GAVIOTA Webb, URL [address] [facility] [place] [address] Additional Instructions: [address] AP w [...] tablet, Unable to obtain albuterol 0.083% Inh Rtacey 3 mL, Unable to obtain amitriptyline 25 [...] (1/2 pack (more content not included)... Normal [facility] Comment on above: Result Comment: Elec tronically Signed By: GAVIOTA VEGA PA-C\.br\Date and Time Signed: 11/15/22 14:32 EDT\.br\Electronically Co-Signed By: Maria Elena Negrete\.br\Date and Time Co-Signed: 11/15/22 14:22 EDT\.br\Electronically Co-Signed By: Maria Elena Negrete\.br\Date and Time Co-Signed: 11/15/22 14:22 EDT CBC AUTO DIFFon 10-05-2022 BASO # 0.1 103/ul Normal 0.0-0.1 [facility] Comment on above: Performed By: #### C BC #### [facility] [place] [facility] [address] [place] [address] Dr. Ashlie Hills Basophils/100 WBC (Bld) 0.6 % Normal 0.2-2.0 [facility] Comment on above: Performed By: #### C BC #### [facility] [place] [facility] [address] [address] [address] Ashlie Hills EO # 0.3 103/ul Normal 0.0-0.7 [facility] Comment on above: Performed By: #### C BC #### [facility] [place] [facility] [address] [place] [address] Dr. Ashlie Hills Eosinophils/100 WBC (Bld) 2.1 % Normal 0.9-7.0 [facility] Comment on above: Performed By: #### C BC #### [facility] [place] [facility] [address] [place] [address] Dr. Ashlie Hills Erythrocyte distribution width (RBC) [Ratio] 15.9 % Critically high 11.0-15.0 [facility] Comment on above: Performed By: #### C BC #### [facility] [place] [facility] [address] [place] [address] Dr. Ashlie Hills Hematocrit (Bld) [Volume fraction] 51.8 % Critically high 36.0-48.0 [facility] Comment on above: Performed By: #### C BC #### [facility] [place] [facility] [address] [place] [address] Dr. Ashlie Hills Hemoglobin (Bld) [Mass/Vol] 16.6 g/dL Critically high 12.0-16.0 [facility] Comment on above: Performed By: #### C BC #### [facility] [place] [facility] [address] [place] [address] Dr. Ashlie Hills IG # 0.03 10e3/ul Normal 0.00-0.03 [facility] Comment on above: Performed By: #### C BC #### [facility] [place] [facility] [address] [place] [address] Dr. Ashlie Hills IG % 0.2 % Normal 0.0-0.5 [facility] Comment on above: Performed By: #### C BC #### [facility] [place] [facility] [address] [place] [address] Dr. Ashlie Hills LYMPH # 3.9 103/ul Critically high 1.2-3.8 [facility] Comment on above: Performed By: #### C BC #### [facility] [place] [facility] [address] [place] [address] Dr. Ashlie Hills Lymphocytes/100 WBC (Bld) 31.7 % Normal 20.5-60.0 [facility] Comment on above: Performed By: #### C BC #### [facility] [place] [facility] [address] [place] [address] Dr. Ashlie Hills MANUAL DIFF REQ NO Normal [facility] Comment on above: Performed By: #### C BC #### [facility] [place] [facility] [address] [place] [address] Dr. Ashlie Hills MCH (RBC) [Entitic mass] 27.9 pg Normal 26.7-34.0 [facility] Comment on above: Performed By: #### C BC #### [facility] [place] [facility] [address] [place] [address] Dr. Ashlie Hills MCHC (RBC) [Mass/Vol] 32.0 g/dL Normal 29.9-35.2 [facility] Comment on above: Performed By: #### C BC #### [facility] [place] [facility] [address] [place] [address] Dr. Ashlie Hills MCV (RBC) [Entitic vol] 87.1 fL Normal 81.0-99.0 [facility] Comment on above: Performed By: #### C BC #### [facility] [address] [place] [address] Dr. Ashlie Hills MONO # 0.7 103/ul Normal 0.3-0.8 [facility] Comment on above: Performed By: #### C BC #### [facility] [address] [place] [address] Dr. Ashlie Hills Monocytes/100 WBC (Bld) 5.8 % Normal 1.7-12.0 [facility] Comment on above: Performed By: #### C BC #### [facility] [address] [place] [address] Dr. Ashlie Hills NEUT # 7.3 103/ul Critically high 1.4-6.5 The [facility] Comment on above: Performed By: #### C BC #### [facility] [address] [place] [address] Dr. Ashlie Hills Neutrophils/100 WBC (Bld) 59.6 % Normal 43.0-75.0 [facility] Comment on above: Performed By: #### C BC #### [facility] [address] [address] [address] Ashlie Hills Platelet mean volume (Bld) [Entitic vol] 11.7 fL Normal 9.5-13.5 [facility] Comment on above: Performed By: #### C BC #### [facility] [address] [address] [address] Ashlie Hills PLT 117 103/ul Critically low 150-450 [facility] Comment on above: Performed By: #### C BC #### [facility] [address] [address] [address] Ashlie Hills RBC 5.95 106/ul Critically high 4.20-5.40 [facility] Comment on above: Performed By: #### C BC #### [facility] [address] [address] [address] Ashlie Hills WBC 12.3 103/ul Critically high 4.0-11.0 [facility] Comment on above: Performed By: #### C BC #### [facility] [id number] Ashlie Hills CT ABD/PELV W CONon [...] RICCO PICKARD Date: 2022-10-05 13:13 Normal The [facility] ER URINE PROFILEon 3 Bilirubin Ql (U) Negative Normal NEGATIVE The [facility] Comment on above: Performed By: #### P OCGLUC #### [facility] [address] [address] [address] Ashlie Hills Clarity (U) CLEAR Normal CLEAR The [facility] Comment on above: Performed By: #### P OCGLUC #### [facility] [address] [place] [address] Dr. Ashlie Hills Color (U) YELLOW Normal YELLOW The [facility] Comment on above: Performed By: #### P OCGLUC #### [facility] [address] [address] [address] Ashlie Hills ERUAHBraulio A micrscopic examination will be performed if indicated. Normal The [facility] Comment on above: Performed By: #### P OCGLUC #### [facility] [address] [address] [address] Ashlie Hills Glucose Ql (U) Negative Normal NEGATIVE The [facility] Comment on above: Performed By: #### P OCGLUC #### [facility] [address] [address] [address] Ashlie Hills Hemoglobin Ql (U) Negative Normal NEGATIVE [facility] Comment on above: Performed By: #### P OCGLUC #### [facility] [address] [address] [address] Ashlie Hills Ketones Ql (U) Negative Normal NEGATIVE The [facility] Comment on above: Performed By: #### P OCGLUC #### [facility] [address] [address] [address] Ashlie Hills LEUKOCYTES Negative Normal NEGATIVE [facility] Comment on above: Performed By: #### P OCGLUC #### [facility] [address] [place] [address] Dr. Ashlie Hills Nitrite Ql (U) Negative Normal NEGATIVE [facility] Comment on above: Performed By: #### P OCGLUC #### [facility] [address] [place] [address] Dr. Ashlie Hills pH (U) 6.0 [pH] Normal 5-9 [facility] Comment on above: Performed By: #### P OCGLUC #### [facility] [address] [place] [address] Dr. Ashlie Hills Protein (U) [Mass/Vol] 100 mg/dL Abnormal NEGATIVE/ TRACE [facility] Comment on above: Performed By: #### P OCGLUC #### [facility] [address] [place] [address] Dr. Ashlie Hills SPEC GRAVITY 1.010 Normal 1.005-<=1.025 [facility] Comment on above: Performed By: #### P OCGLUC #### [facility] [address] [place] [address] Dr. Ashlie Hills UR MICRO IND INDICATED Normal [facility] Comment on above: Performed By: #### P OCGLUC #### [facility] [address] [place] [address] Dr. Ashlei Hills Urobilinogen Qn (U) 1.0 {Little'U}/dL Normal 0.2 - 1. 0 [facility] Comment on above: Performed By: #### P OCGLUC #### [facility] [address] [place] [address] Dr. Ashlie Hills LIPASEon 10-05-2022 Lipase [Catalytic activity/Vol] 1771.0 U/L Critically high 73.0-393.0 [facility] Comment on above: Performed By: #### C BC #### [facility] [address] [place] [address] Dr. Ashlie Hills PREG HCG QUALon 10-05-2022 , QUAL Negative Normal NEGATIVE [facility] Comment on above: Performed By: #### P OCGLUC #### [facility] [address] [place] [address] Dr. Ashlie Hills PROF 14(COMP METB)on 023 Albumin [Mass/Vol] 3.2 g/dL Critically low 3.4-5.0 Th e [facility] Comment on above: Performed By: #### C BC #### [facility] [address] [place] [address] Dr. Ashlie Hills Albumin/Globulin [Mass ratio] 0.7 {ratio} Normal [facility] Comment on above: Performed By: #### C BC #### [facility] [address] [place] [address] Dr. Ashlie Hills ALP [Catalytic activity/Vol] 70 U/L Normal 46-116 [facility] Comment on above: Performed By: #### C BC #### [facility] [address] [place] [address] Dr. Ashlie Hills ALT [Catalytic activity/Vol] 11 U/L Critically low 14-59 [facility] Comment on above: Performed By: #### C BC #### [facility] [address] [place] [address] Dr. Ashlie Hills Anion gap [Moles/Vol] 10.3 mmol/L Normal [facility] Comment on above: Performed By: #### C BC #### [facility] [address] [place] [address] Dr. Ashlie Hills AST [Catalytic activity/Vol] 11 U/L Critically low 15-37 [facility] Comment on above: Performed By: #### C BC #### [facility] [address] [place] [address] Dr. Ashlie Hills Bilirubin [Mass/Vol] 0.9 mg/dL Normal 0.2-1.0 [facility] Comment on above: Performed By: #### C BC #### [facility] [address] [place] [address] Dr. Ashlie Hills Calcium [Mass/Vol] 9.3 mg/dL Normal 8.5-10.1 [facility] Comment on above: Performed By: #### C BC #### [facility] [address] [place] [address] Dr. Ashlie Hills Chloride [Moles/Vol] 105 mmol/L Normal 98-107 The [facility] Comment on above: Performed By: #### C BC #### [facility] [address] [place] [address] Dr. Ashlie Hills CO2 [Moles/Vol] 30.6 mmol/L Normal 21.0-32.0 [facility] Comment on above: Performed By: #### C BC #### [facility] [address] [address] [address] Ashlie Hills Creatinine [Mass/Vol] 0.62 mg/dL Normal 0.55-1.02 [facility] Comment on above: Performed By: #### C BC #### [facility] [address] [place] [address] Dr. Ashlie Hills EGFR-AF INDIAN >60 Normal >=[address] [facility] Comment on above: Performed By: #### C BC #### [facility] [address] [place] [address] Dr. Ashlie Hills EGFR-NON AF INDIAN >60 Normal >=60 [facility] Comment on above: Performed By: #### C BC #### [facility] [address] [address] [address] Ashlie Hills Globulin (S) [Mass/Vol] 4.6 g/dL Normal [facility] Comment on above: Performed By: #### C BC #### [facility] [address] [place] [address] Dr. Ashlie Hills Glucose [Mass/Vol] 85 mg/dL Normal 74-106 [facility] Comment on above: Performed By: #### C BC #### [facility] [address] [place] [address] Dr. Ashlie Hills Potassium [Moles/Vol] 3.9 mmol/L Normal 3.5-5.1 The [facility] Comment on above: Performed By: #### C BC #### [facility] [address] [place] [address] Dr. Ashlie Hills Protein [Mass/Vol] 7.8 g/dL Normal 6.4-8.2 [facility] Comment on above: Performed By: #### C BC #### [facility] [address] [address] [address] Ashlie Hills Sodium [Moles/Vol] 142 mmol/L Normal 136-145 [facility] Comment on above: Performed By: #### C BC #### [facility] [address] [address] [address] Ashlie Hills Urea nitrogen [Mass/Vol] 12.0 mg/dL Normal 7.0-18.0 [facility] Comment on above: Performed By: #### C BC #### [facility] [address] [place] [address] Dr. Ashlie Hills Urea nitrogen/Creatinine [Mass ratio] 19.4 mg/mg Normal [facility] Comment on above: Performed By: #### C BC #### [facility] [address] [place] [address] Dr. Ashlie Hills URINE MICROSCOPIC ONLYon BACTERIA TRACE Abnormal NONE SEEN [facility] Comment on above: Performed By: #### P OCGLUC #### [facility] [address] [place] [address] Dr. Ashlie Hills Bacteria identified Cx Nom (U) NOT INDICATED Normal [facility] Comment on above: Performed By: #### P OCGLUC #### [facility] [address] [place] [address] Dr. Ashlie Hills CAST NONE SEEN Normal NONE SEEN [facility] Comment on above: Performed By: #### P OCGLUC #### [facility] [address] [place] [address] Dr. Ashlie Hills Crystals LM Nom (Urine sed) NONE SEEN Normal NONE SEEN [facility] Comment on above: Performed By: #### P OCGLUC #### [facility] [address] [place] [address] Dr. Ashlie Hills Epithelial cells LM Ql (Urine sed) MODERATE Abnormal NONE SEEN /RARE The [facility] Comment on above: Performed By: #### P OCGLUC #### [facility] [address] [place] [address] Dr. Ashlie Hills MUCOUS NONE SEEN Normal NONE SEEN The [facility] Comment on above: Performed By: #### P OCGLUC #### [facility] [address] [address] [address] Ashlie Hills RBC 0-2 Normal 0-2 The [facility] Comment on above: Performed By: #### P OCGLUC #### [facility] [address] [place] [address] Dr. Ashlie Hills WBC 0-2 Abnormal NONE SEEN The [facility] Comment on above: Performed By: #### P OCGLUC #### [facility] [address] [place] [address] Dr. Ashlie Hills Covid-19 PCR ([facility])on 09-06 SARS-CoV-2 (COVID-19) RNA MADDY+probe Ql (Unsp spec) Detected Abnormal NOT DETECTED The [facility] Comment on above: Result Comment: This test is not yet approved or cleared by the [place] FDA. When there are no FDA-approved or cleared tests available, and other criteria are met, FDA can make tests available under an emergency access mechanism called an Emergency Use Authorization (EUA). The EUA for this test is supported by the Agronomy Specialist of Health and Human Service's declaration that [...] used). Performed By: #### C VDAGS #### [facility] [address] [place] [address] Dr. Ashlie Hills INFLUENZA A AND B AGon 09-21 INFLUANEGH SEE BELOW Normal [facility] Comment on above: Result Comment: Nega tive for Flu A protein angiten. Infection due to Flu A cannot be ruled out. Flu A angiten in the sample may be below the detection limit of the test. Performed By: #### I NFLUAB #### [facility] [address] [place] [address] Dr. Ashlie Hlils INFLUBNEGH SEE BELOW Normal The [facility] Comment on above: Result Comment: Nega tive for Flu B protein antigen. Infection due to Flu B cannot be ruled out. Flu B antigen in the sample may be below the detection limit of the test. Performed By: #### I NFLUAB #### [facility] [address] [place] [address] Dr. Ashlie Hills INFLUENZA A AG Negative Normal NEGATIVE SEE COMMENT The [facility] Comment on above: Performed By: #### I NFLUAB #### [facility] [address] [address] [address] Ashlie Hills INFLUENZA B AG Negative Normal NEGATIVE SEE COMMENT The [facility] Comment on above: Performed By: #### I NFLUAB #### [facility] [address] [place] [address] Dr. Ashlie Hills RAD - CT Reporton 07-31-2022 RAD - CT Report [id number] #1.00CD:127 Normal [facility] CT ABD/PELV W CONon 07-27-19 CT ABD/PELV [...] to at least 10/21/2018, unchanged. https://www.ncbi.nlm .nih.gov/pmc/article s/[id number]/ Electronically authenticated by: COLLIN HUERTAS Date: 2022-07-27 14:56 Normal The [facility] Reminders 07-27-2022 Reminders - From: Raquel Tidwell To: EU - Recalls Vargas; Sent: 02/06/2022 11:45:57 EDT Show up: 07/09/2022 11:45:00 EST Subject: Ct scan Due Date/Time: 07/31/2022 11:45:00 EST Reminder/Recall Pt needs Ct scan abd/pelvis w contrast ATTN Adrenals scheduled prior to Aug 2022 appt. She wants [facility] order faxed to [facility] Pt scheduled for 07/27/2022 will monitor [facility] for results over the next few days Normal [facility] Physician Orderon 07-19-2022 Physician Order [id number] #[id number]:127 Normal [facility] CREATININEon 07-18-2022 Creatinine [Mass/Vol] 0.81 mg/dL Normal 0.55-1.02 [facility] Comment on above: Performed By: #### C BC #### [facility] [address] [place] [address] Dr. Ashlie Hills EGFR-AF INDIAN >60 Normal >=[address] [facility] Comment on above: Performed By: #### C BC #### [facility] [address] [place] [address] Dr. Ashlie Hills EGFR-NON AF INDIAN >60 Normal >=60 [facility] Comment on above: Performed By: #### C BC #### [facility] [address] [place] [address] LOW EXT W [...] PATRICIA IVAN Date: 2022-07-18 14:58 Normal The [facility] XR KNEE LT 1_2 Von 3 XR [...] Normal The [facility] SARS-CoV-2 (COVID-19) RNA MADDY+probe Ql (Unsp spec) Not detected Normal NOT DETECTED The [facility] Comment on above: Result Comment: This test is not yet approved or cleared by the [place] FDA. When there are no FDA-approved or cleared tests available, and other criteria are met, FDA can make tests available under an emergency access mechanism called an Emergency Use Authorization (EUA). The EUA for this test is supported by the Agronomy Specialist of Health and Human Service's (HHS's) declaration [...] SARS-CoV-2. Performed By: #### C BC #### [facility] [address] [place] [address] Dr. Ashlie Hills INFLUENZA A AND B AGon 07-06 INFLUANE SEE BELOW Normal [facility] Comment on above: Result Comment: Nega tive for Flu A protein angiten. Infection due to Flu A cannot be ruled out. Flu A angiten in the sample may be below the detection limit of the test. Performed By: #### C BC #### [facility] [address] [place] [address] Dr. Ashlie Hills INFLUBNEG SEE BELOW Normal [facility] Comment on above: Result Comment: Nega tive for Flu B protein antigen. Infection due to Flu B cannot be ruled out. Flu B antigen in the sample may be below the detection limit of the test. Performed By: #### C BC #### [facility] [address] [place] [address] Dr. Ashlie Hills INFLUENZA A AG Negative Normal NEGATIVE SEE COMMENT [facility] Comment on above: Performed By: #### C BC #### [facility] [address] [place] [address] Dr. Ashlie Hills INFLUENZA B AG Negative Normal NEGATIVE SEE COMMENT [facility] Comment on above: Performed By: #### C BC #### [facility] [address] [place] [address] Dr. Ashlie Hills POINT OF CARE GLUCOSEon 04-08 Glucose [Mass/Vol] 108 mg/dL Critically high 74-106 [facility] Comment on above: Performed By: #### C BC #### [facility] [address] [place] [address] Dr. Ashlie Hills RAGHU by IFAon 03-07-2022 Antinuclear Antibodies, IFA Negative Normal [facility] Comment on above: Result Comment: Nega tive <1:80 Borderline 1:80 Positive >1:80 ICAP nomenclature: AC-0 For more information about Hep-2 cell patterns use ANApatterns.org, the official website for the International Consensus on Antinuclear Antibody (RAGHU) Patterns (ICAP). Performed By: #### A NAPARESH #### [facility] [address] [place] [address] Dr. Ashlie Hills IMMUNOFIXATION (TREVON), URINEo n 03-07-2022 TREVON Interpretation:U Comment Normal [facility] Comment on above: Result Comment: No m onoclonality detected. Performed By: #### C BC #### [facility] [address] [place] [address] Dr. Ashlie Hills IMMUNOFIXATION(TREVON),PROTEIN ELEC(PE),FREon 03-07-2022 Albumin [Mass/Vol] 3.0 g/dL Normal 2.9-4.4 [facility] Comment on above: Performed By: #### I NFLUAB #### [facility] [address] [place] [address] Dr. Ashlie Hills Albumin/Globulin [Mass ratio] 0.8 {ratio} Normal 0.7-1.7 [facility] Comment on above: Performed By: #### I NFLUAB #### [facility] [address] [place] [address] Dr. Ashlie Hills Tzvaf-6-Nwhyyjai 0.3 g/dL Normal 0.0-0.4 [facility] Comment on above: Performed By: #### I NFLUAB #### [facility] [address] [place] [address] Dr. Ashlie Hills Vinzl-1-Cevsmriz 1.0 g/dL Normal 0.4-1.[address] [facility] Comment on above: Performed By: #### I NFLUAB #### [facility] [address] [place] [address] Dr. Ashlie Hills Beta Globulin 1.8 g/dL Critically high 0.7-1.3 [facility] Comment on above: Performed By: #### I NFLUAB #### [facility] [address] [place] [address] Dr. Ashlie Hills Free Abbs Valley Lt Chains,S 45.2 mg/L Critically high 3.3-19.4 [facility] Comment on above: Performed By: #### I NFLUAB #### [facility] [address] [place] [address] Dr. Ashlie Hills Free Lambda Lt Chains,S 40.3 mg/L Critically high 5.7-26.3 [facility] Comment on above: Performed By: #### I NFLUAB #### [facility] [address] [place] [address] Dr. Ashlie Hills Gamma Globulin 0.8 g/dL Normal 0.4-1.8 [facility] Comment on above: Performed By: #### I NFLUAB #### [facility] [address] [place] [address] Dr. Ashlie Hills Globulin (S) [Mass/Vol] 3.9 g/dL Normal 2.2-3.9 [facility] Comment on above: Performed By: #### I NFLUAB #### [facility] [address] [place] [address] Dr. Ashlie Hills Immunofixation Result, Serum Comment Normal [facility] Comment on above: Result Comment: No m onoclonality detected. Performed By: #### I NFLUAB #### [facility] [address] [place] [address] Dr. Ashlie Hills Immunoglobulin A, Qn, Serum 776 mg/dL Critically high 87-352 [facility] Comment on above: Performed By: #### I NFLUAB #### [facility] [address] [place] [address] Dr. Ashlie Hills Immunoglobulin G, Qn, Serum 955 mg/dL Normal [id number] The [facility] Comment on above: Performed By: #### I NFLUAB #### [facility] [address] [place] [address] Dr. Ashlie Hills Immunoglobulin M, Qn, Serum 39 mg/dL Normal 26-217 The [facility] Comment on above: Performed By: #### I NFLUAB #### [facility] [address] [place] [address] Dr. Ashlie Hills Abbs Valley/Lambda Ratio, S 1.12 Normal 0.26-1.65 [facility] Comment on above: Performed By: #### I NFLUAB #### [facility] [address] [place] [address] Dr. Ashlie Hills M-Bright Not Observed Normal Not Observed [facility] Comment on above: Performed By: #### I NFLUAB #### [facility] [address] [place] [address] Dr. Ashlie Hills PDF . Normal The [facility] Comment on above: Performed By: #### I NFLUAB #### [facility] [address] [place] [address] Dr. Ashlie Hills Please note: Comment Normal [facility] Comment on above: Result Comment: Prot ein electrophoresis scan will follow via computer, mail, or cafeteria food server delivery. Performed By: #### I NFLUAB #### [facility] [address] [place] [address] Dr. Ashlie Hills Protein [Mass/Vol] 6.9 g/dL Normal 6.0-8.5 The [facility] Comment on above: Performed By: #### I NFLUAB #### [facility] [address] [place] [address] Dr. Ashlie Hills C-PEPTIDE, SERUMon 2 C-Peptide, Serum 3.1 ng/mL Normal 1.1-4.[address] [facility] Comment on above: Result Comment: C-Pe ptide reference interval is for fasting patients. Performed By: #### C PEPT #### [facility] [address] [place] [address] Dr. Ashlie Hills HEP B SURFACE ANTIGEN SCREEN on 03-04-2022 HBsAg Screen Negative Normal Negative [facility] Comment on above: Performed By: #### C BC #### [facility] [address] [place] [address] Dr. Ashlie Hills HEPATITIS C VIRUS AB W/ REFL EX QUANTon 03-04-2022 HCV AB <0.1 Normal 0.0-0.9 [facility] Comment on above: Performed By: #### I NFLUAB #### [facility] [address] [address] [address] Ashlie Hills Interpretation: Comment Normal The [facility] Comment on above: Result Comment: Rupert tikike Not infected with HCV, unless recent infection is suspected or other evidence exists to indicate HCV infection. Performed By: #### I NFLUAB #### [facility] [address] [address] [address] Ashlie Hills MICROALBUMIN/ CREATININE RAT IOon 03-04-2022 Albumin, Urine 367.4 ug/mL Normal Not Estab. The [facility] Comment on above: Performed By: #### C BC #### [facility] [address] [address] [address] Ashlie Hills Albumin/ Creatinine Ratio 239 mg/g creat Critically high 0-29 [facility] Comment on above: Result Comment: Norm al: 0 - 29 Moderately increased: 30 - 300 Severely increased: >300 Performed By: #### C BC #### [facility] [address] [address] [address] Ashlie Hills Creatinine, Urine 153.9 mg/dL Normal Not Estab. The [facility] Comment on above: Performed By: #### C BC #### [facility] [address] [address] [address] Ashlie Hills VIT D 25-OH LABCORPon 2021 Vitamin D, 25-Hydroxy <4.0 Critically low 30.0-100.0 [facility] Comment on above: Result Comment: Graciela min D deficiency has been defined by the [place] of Medicine and an Endocrine Society practice guideline as a level of serum 25-OH vitamin D less than 20 ng/mL (1,2). The Endocrine Society went on to further define vitamin D insufficiency as a level between 21 and 29 ng/mL (2). 1. IOM ([place] of Medicine). 2010. Dietary reference intakes for calcium and D. [place]: The National Academies Press. 2. Lynda STAHL, Keely OLIVEROS, Leandra LOPEZ, et al. Evaluation, treatment, and prevention of vitamin D deficiency: an Endocrine Society clinical practice guideline. JCEM. 2010; 96(7):1911-30. Performed By: #### C BC #### [facility] [address] [place] [address] Dr. Ashlie Hills GLYCOHEMOGLOBIN A1Con 2021 ADA RECOMMENDATION SEE BELOW Normal [facility] Comment on above: Result Comment: ADA RECOMMENDED LIMIT 4.0 - 6.0 ADA THERAPEUTIC TARGET < 7.0 ACTION SUGGESTED > 7.0 Performed By: #### C VDAGS #### [facility] [address] [place] [address] Dr. Ashlie Hills Glucose [Mass/Vol] 295 mg/dL Normal [facility] Comment on above: Performed By: #### C VDAGS #### [facility] [address] [place] [address] Dr. Ashlie Hills HbA1c (Bld) [Mass fraction] 11.9 % Critically high 4.5-6.2 [facility] Comment on above: Performed By: #### C VDAGS #### [facility] [address] [place] [address] Dr. Ashlie Hills HEMOGRAM AND PLATELon 2021 Hematocrit (Bld) [Volume fraction] 56.3 % Critically high 36.0-48.0 [facility] Comment on above: Performed By: #### C VDAGS #### [facility] [address] [place] [address] Dr. Ashlie Hills Hemoglobin (Bld) [Mass/Vol] 18.0 g/dL Critically high 12.0-16.0 The [facility] Comment on above: Performed By: #### C VDAGS #### [facility] [address] [place] [address] Dr. Ashlie Hills MCH (RBC) [Entitic mass] 29.5 pg Normal 26.7-34.0 [facility] Comment on above: Performed By: #### C VDAGS #### [facility] [address] [place] [address] Dr. Ashlie Hills MCHC (RBC) [Mass/Vol] 32.0 g/dL Normal 29.9-35.2 The [facility] Comment on above: Performed By: #### C VDAGS #### [facility] [address] [place] [address] Dr. Ashlie Hills MCV (RBC) [Entitic vol] 92.1 fL Normal 81.0-99.0 [facility] Comment on above: Performed By: #### C VDAGS #### [facility] [address] [place] [address] Dr. Ashlie Hills PLT 123 103/ul Critically low 150-450 [facility] Comment on above: Performed By: #### C VDAGS #### [facility] [address] [place] [address] Dr. Ashlie Hills RBC 6.11 106/ul Critically high 4.20-5.40 [facility] Comment on above: Performed By: #### C VDAGS #### [facility] [address] [place] [address] Dr. Ashlie Hills WBC 16.4 103/ul Critically high 4.0-11.0 [facility] Comment on above: Performed By: #### C VDAGS #### [facility] [address] [place] [address] Dr. Ashlie Hills LIPID PROFILEon 03-03-2022 CHOL-HDL RATIO NORM SEE BELOW Normal [facility] Comment on above: Result Comment: 3.3 - 4.4 LOW RISK 4.4 - 7.1 AVERAGE RISK 7.1 - 11.0 MODERATE RISK >11.0 HIGH RISK Performed By: #### C VDAGS #### [facility] [address] [place] [address] Dr. Ashlie Hills Cholesterol [Mass/Vol] 159 mg/dL Normal <=200 The [facility] Comment on above: Performed By: #### C VDAGS #### [facility] [address] [place] [address] Dr. Ashlie Hills Cholesterol in HDL [Mass/Vol] 40 mg/dL Normal 40-60 [facility] Comment on above: Performed By: #### C VDAGS #### [facility] [address] [place] [address] Dr. Ashlie Hills Cholesterol in LDL [Mass/Vol] 81.8 mg/dL Normal [facility] Comment on above: Performed By: #### C VDAGS #### [facility] [address] [address] [address] Ashlie Hills Cholesterol.total/Ch olesterol in HDL [Mass ratio] 4.0 {ratio} Normal [facility] Comment on above: Performed By: #### C VDAGS #### [facility] [address] [address] [address] Ashlie Hills HDL NORMAL > or = 60 mg/dl - LOW CARDIOVASCULAR RISK <40 mg/dl - HIGH CARDIOVASCULAR RISK Normal [facility] Comment on above: Performed By: #### C VDAGS #### [facility] [address] [address] [address] Ashlie Hills LDL CALC NORMAL SEE BELOW Normal [facility] Comment on above: Result Comment: <100 mg/dl OPTIMAL 100 - 129 mg/dl NEAR OR ABOVE OPTIMAL 130 - 159 mg/dl BORDERLINE HIGH 160 - 189 mg/dl HIGH >190 mg/dl VERY HIGH Performed By: #### C VDAGS #### [facility] [address] [address] [address] Ashlie Hills Triglyceride [Mass/Vol] 186 mg/dL Critically high <=150 [facility] Comment on above: Performed By: #### C VDAGS #### [facility] [address] [address] [address] Ashlie Hills VLDL CALC 37.2 mg/dL Normal [facility] Comment on above: Performed By: #### C VDAGS #### [facility] [address] [address] [address] Ashlie Hills RENAL FUNCTION PANELon 03-03 Albumin [Mass/Vol] 3.1 g/dL Critically low 3.4-5.0 [facility] Comment on above: Performed By: #### C BC #### [facility] [address] [address] [address] Ashlie Hills Calcium [Mass/Vol] 9.2 mg/dL Normal 8.5-10.1 [facility] Comment on above: Performed By: #### C BC #### [facility] [address] [address] [address] Ashlie Hills Chloride [Moles/Vol] 102 mmol/L Normal 98-107 [facility] Comment on above: Performed By: #### C BC #### [facility] [address] [address] [address] Ashlie Hills CO2 [Moles/Vol] 31.9 mmol/L Normal 21.0-32.0 [facility] Comment on above: Performed By: #### C BC #### [facility] [address] [address] [address] Ashlie Hills Creatinine [Mass/Vol] 0.68 mg/dL Normal 0.55-1.02 [facility] Comment on above: Performed By: #### C BC #### [facility] [address] [address] [address] Ashlie Hills EGFR-AF INDIAN >60 Normal >=[address] [facility] Comment on above: Performed By: #### C BC #### [facility] [address] [address] [address] Ashlie Hills EGFR-NON AF INDIAN >60 Normal >=60 [facility] Comment on above: Performed By: #### C BC #### [facility] [address] [address] [address] Ashlie Hills Glucose [Mass/Vol] 131 mg/dL Critically high 74-106 [facility] Comment on above: Performed By: #### C BC #### [facility] [address] [address] [address] Ashlie Hills Phosphate [Mass/Vol] 4.0 mg/dL Normal 2.6-4.7 The [facility] Comment on above: Performed By: #### C BC #### [facility] [address] [address] [address] Ashlie Hills Potassium [Moles/Vol] 4.0 mmol/L Normal 3.5-5.1 The [facility] Comment on above: Performed By: #### C BC #### [facility] [address] [place] [address] Dr. Ashlie Hills Sodium [Moles/Vol] 141 mmol/L Normal 136-145 [facility] Comment on above: Performed By: #### C BC #### [facility] [address] [place] [address] Dr. Ashlie Hills Urea nitrogen [Mass/Vol] 17.0 mg/dL Normal 7.0-18.0 [facility] Comment on above: Performed By: #### C BC #### [facility] [address] [place] [address] Dr. Ashlie Hills UA RANDOM W/MICROSCOPICon BACTERIA NONE SEEN Normal NONE SEEN [facility] Comment on above: Performed By: #### I NFLUAB #### [facility] [address] [place] [address] Dr. Ashlie Hills Bilirubin Ql (U) Negative Normal NEGATIVE The [facility] Comment on above: Performed By: #### I NFLUAB #### [facility] [address] [place] [address] Dr. Ashlie Hills CAST NONE SEEN Normal NONE SEEN [facility] Comment on above: Performed By: #### I NFLUAB #### [facility] [address] [place] [address] Dr. Ashlie Hills Clarity (U) CLEAR Normal CLEAR [facility] Comment on above: Performed By: #### I NFLUAB #### [facility] [address] [place] [address] Dr. Ashlie Hills Color (U) YELLOW Normal YELLOW The [facility] Comment on above: Performed By: #### I NFLUAB #### [facility] [address] [place] [address] Dr. Ashlie Hills Crystals LM Nom (Urine sed) NONE SEEN Normal NONE SEEN [facility] Comment on above: Performed By: #### I NFLUAB #### [facility] [address] [place] [address] Dr. Ashlie Hills Epithelial cells LM Ql (Urine sed) FEW Abnormal NONE SEEN /RARE The [facility] Comment on above: Performed By: #### I NFLUAB #### [facility] [address] [address] [address] Ashlie Hills Glucose Ql (U) Negative Normal NEGATIVE [facility] Comment on above: Performed By: #### I NFLUAB #### [facility] [address] [address] [address] Ashlie Hills Hemoglobin Ql (U) Negative Normal NEGATIVE The [facility] Comment on above: Performed By: #### I NFLUAB #### [facility] [address] [address] [address] Ashlie Hills Ketones Ql (U) Negative Normal NEGATIVE [facility] Comment on above: Performed By: #### I NFLUAB #### [facility] [address] [place] [address] Dr. Ashlie Hills LEUKOCYTES Negative Normal NEGATIVE [facility] Comment on above: Performed By: #### I NFLUAB #### [facility] [address] [place] [address] Dr. Ashlie Hills MUCOUS NONE SEEN Normal NONE SEEN The [facility] Comment on above: Performed By: #### I NFLUAB #### [facility] [address] [place] [address] Dr. Ashlie Hills Nitrite Ql (U) Negative Normal NEGATIVE [facility] Comment on above: Performed By: #### I NFLUAB #### [facility] [address] [place] [address] Dr. Ashlie Hills pH (U) 5.5 [pH] Normal 5-9 [facility] Comment on above: Performed By: #### I NFLUAB #### [facility] [address] [place] [address] Dr. Ashlie Hills RBC 0-2 Normal 0-2 [facility] Comment on above: Performed By: #### I NFLUAB #### [facility] [address] [place] [address] Dr. Ashlie Hills SPEC GRAVITY >=1.030 Abnormal 1.005-<=1.025 [facility] Comment on above: Performed By: #### I NFLUAB #### [facility] [address] [place] [address] Dr. Ashlie Hills UA PROTEIN 100 mg/dl Abnormal NEGATIVE/ TRACE The [facility] Comment on above: Performed By: #### I NFLUAB #### [facility] [address] [place] [address] Dr. Ashlie Hills Urobilinogen Qn (U) 0.2 {Little'U}/dL Normal 0.2 - 1. 0 The [facility] Comment on above: Performed By: #### I NFLUAB #### [facility] [address] [place] [address] Dr. Ashlie Hills WBC NONE SEEN Normal NONE SEEN The [facility] Comment on above: Performed By: #### I NFLUAB #### [facility] [address] [place] [address] Dr. Ashlie Hills URIC ACID SERUMon 03-03-2022 Urate [Mass/Vol] 5.0 mg/dL Normal 2.6-6.0 [facility] Comment on above: Performed By: #### I NFLUAB #### [facility] [address] [place] [address] Dr. Ashlie Hills URINE T PROTEIN CREAT RATIOo n 03-03-2022 Protein (U) [Mass/Vol] 77.9 mg/dL Critically high <=12.0 The [facility] Comment on above: Performed By: #### C VDAGS #### [facility] [address] [place] [address] Dr. Ashlie Hills UR PROT CREAT RAT 0.44 Normal The [facility] Comment on above: Performed By: #### C VDAGS #### [facility] [address] [place] [address] Dr. Ashlie Hills URINE CREAT 175.15 mg/dL Normal 20.00-300.00 [facility] Comment on above: Performed By: #### C VDAGS #### [facility] [address] [place] [address] Dr. 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 Smoker Adrenal mass 1 cm to 4 cm in diameter Other obstructive and reflux uropathy Tests Performed Urnls Dip Stick Auto w/o Microscopy POC 63673 CT Abdomen/Pelvis w/ Contrast -- Results Pending [...] A/P Where: [facility] [address], [place] [address]- [phone] Medications What How Much When Instructions Unchanged [...] Urnls Dip Stick Auto w/o Microscopy POC 69253 (02/06/2022) Bilirubin Urine Dipstick - Negative Blood Urine Dipstick - Negative Glucose Urine Dipstick - 2+ 500 mg/dl Ketones Urine Dipstick - Negative Leukocytes Urine Dipstick - Negative Nitrite Urine Dipstick - Negative Protein Urine Dipstick - 3+ (300 mg/dl) Specific [place] Urine Dipstick - >=1.030 Urine Appearance Urine [...] is caused (more content not included)... Normal [facility] Patient Educationon 02-07-20 Patient Education [...] Take ove (more content not included)... Normal [facility] Urology Office/Clinic Noteon 02-06-2022 Urology Office/Clinic Note [...] of protein. Recommended pt to see a conflicts analyst due to high protein levels in the urine. All questions/concerns were discussed. Pt to call office if she encounters any issues prior. Pt acknowledges understanding. Other obstructive and reflux uropathy (N13.8: Other obstructive and reflux uropathy) Follow-up With When Contact Information REGLA PHIPPS, Julia Joya, GEMA In 6 months [facility] [address] [place] [address] [phone] Additional Instructions: w/ repeat CT A/P Patient [...] flank pain (more content not included)... Normal [facility] Comment on above: Result Comment: Elec tronically Signed By: Julia VARGAS MD\.br\Date and Time Signed: 02/06/22 11:45 EDT\.br\Electronically Co-Signed By: Enedelia Mendoza\Luz Mariabr\Date and Time Co-Signed: 02/06/22 11:42 EDT CULTURE URINEon 12-25-2021 CULTURE URINE Culture Observations: GREATER THAN TWO ORGANISMS PRESENT, HEAVILY MIXED. PLEASE RESUBMIT CLEAN CATCH MID-STREAM URINE IF CLINICALLY INDICATED. Normal The [facility] Comment on above: Performed By: #### I NFLUAB #### [facility] [address] [address] [address] Ashlie Hills CBC AUTO DIFFon 12-24-2021 BASO # 0.1 103/ul Normal 0.0-0.1 [facility] Comment on above: Performed By: #### C BC #### [facility] [address] [address] [address] Ashlie Hills Basophils/100 WBC (Bld) 0.5 % Normal 0.2-2.0 [facility] Comment on above: Performed By: #### C BC #### [facility] [address] [address] [address] Ashlie Hills EO # 0.4 103/ul Normal 0.0-0.7 [facility] Comment on above: Performed By: #### C BC #### [facility] [address] [place] [address] Dr. Ashlie Hills Eosinophils/100 WBC (Bld) 2.4 % Normal 0.9-7.0 [facility] Comment on above: Performed By: #### C BC #### [facility] [address] [place] [address] Dr. Ashlie Hills Erythrocyte distribution width (RBC) [Ratio] 14.1 % Normal 11.0-15.0 [facility] Comment on above: Performed By: #### C BC #### [facility] [address] [place] [address] Dr. Ashlie Hills Hematocrit (Bld) [Volume fraction] 55.9 % Critically high 36.0-48.0 [facility] Comment on above: Performed By: #### C BC #### [facility] [address] [place] [address] Dr. Ashlie Hills Hemoglobin (Bld) [Mass/Vol] 17.9 g/dL Critically high 12.0-16.0 [facility] Comment on above: Performed By: #### C BC #### [facility] [address] [place] [address] Dr. Ashlie Hills IG # 0.06 10e3/ul Critically high 0.00-0.03 [facility] Comment on above: Performed By: #### C BC #### [facility] [address] [place] [address] Dr. Ashlie Hills IG % 0.4 % Normal 0.0-0.5 [facility] Comment on above: Performed By: #### C BC #### [facility] [address] [place] [address] Dr. Ashlie Hills LYMPH # 5.8 103/ul Critically high 1.2-3.8 [facility] Comment on above: Performed By: #### C BC #### [facility] [address] [place] [address] Dr. Ashlie Hills Lymphocytes/100 WBC (Bld) 35.4 % Normal 20.5-60.0 [facility] Comment on above: Performed By: #### C BC #### [facility] [address] [place] [address] Dr. Ashlie Hills MANUAL DIFF REQ NO Normal [facility] Comment on above: Performed By: #### C BC #### [facility] [address] [place] [address] Dr. Ashlie Hills MCH (RBC) [Entitic mass] 29.4 pg Normal 26.7-34.0 [facility] Comment on above: Performed By: #### C BC #### [facility] [address] [place] [address] Dr. Ashlie Hills MCHC (RBC) [Mass/Vol] 32.0 g/dL Normal 29.9-35.2 The [facility] Comment on above: Performed By: #### C BC #### [facility] [address] [place] [address] Dr. Ashlie Hills MCV (RBC) [Entitic vol] 91.8 fL Normal 81.0-99.0 The [facility] Comment on above: Performed By: #### C BC #### [facility] [address] [place] [address] Dr. Ashlie Hills MONO # 0.8 103/ul Normal 0.3-0.8 The [facility] Comment on above: Performed By: #### C BC #### [facility] [id number] Ashlie Hills Monocytes/100 WBC (Bld) 4.8 % Normal 1.7-12.0 The [facility] Comment on above: Performed By: #### C BC #### [facility] [address] [address] [address] Ashlie Hills NEUT # 9.3 103/ul Critically high 1.4-6.5 The [facility] Comment on above: Performed By: #### C BC #### [facility] [address] [address] [address] Ashlie Hills Neutrophils/100 WBC (Bld) 56.5 % Normal 43.0-75.0 The [facility] Comment on above: Performed By: #### C BC #### [facility] [address] [place] [address] Dr. Ashlie Hills Platelet mean volume (Bld) [Entitic vol] 12.9 fL Normal 9.5-13.5 The [facility] Comment on above: Performed By: #### C BC #### [facility] [address] [address] [address] Ashlie Hills PLT 127 103/ul Critically low 150-450 The [facility] Comment on above: Performed By: #### C BC #### [facility] [address] [place] [address] Dr. Ashlie Hills RBC 6.09 106/ul Critically high 4.20-5.[address] [facility] Comment on above: Performed By: #### C BC #### [facility] [address] [place] [address] Dr. Ashlie Hills WBC 16.4 103/ul Critically high 4.0-11.[address] [facility] Comment on above: Performed By: #### C BC #### [facility] [address] [place] [address] ABD/PELVIS WO CONon [...] Severe right hip degenerative change. Normal The [facility] ER URINE PROFILEon 2 Bilirubin Ql (U) Negative Normal NEGATIVE The [facility] Comment on above: Performed By: #### Tracey LYMAN UMHARRIETRO #### [facility] [address] [address] [address] Ashlie Hills Clarity (U) CLEAR Normal CLEAR The [facility] Comment on above: Performed By: #### Tracey LYMAN UMICRO #### [facility] [address] [address] [address] Ashlie Hills Color (U) DK. ORANGE Abnormal YELLOW The [facility] Comment on above: Performed By: #### MADELINE DIAZRO #### [facility] [address] [place] [address] Dr. Ashlie HOBBS A micrscopic examination will be performed if indicated. Normal The [facility] Comment on above: Performed By: #### PEREZ DIAZICRO #### [facility] [address] [address] [address] Ashlie Hills Glucose Ql (U) 250 mg/dl Abnormal NEGATIVE The [facility] Comment on above: Performed By: #### MADELINE DIAZRO #### [facility] [address] [place] [address] Dr. Ashlie Hills Hemoglobin Ql (U) Negative Normal NEGATIVE The [facility] Comment on above: Performed By: #### MADELINE DIAZRO #### [facility] [address] [address] [address] Ashlie Hills Ketones Ql (U) Negative Normal NEGATIVE The [facility] Comment on above: Performed By: #### MADELINE DIAZRO #### [facility] [address] [place] [address] Dr. Ashlie Hills LEUKOCYTES Negative Normal NEGATIVE The [facility] Comment on above: Performed By: #### Tracey LYMAN UMICRO #### [facility] [address] [address] [address] Ashlie Hills Nitrite Ql (U) Negative Normal NEGATIVE The [facility] Comment on above: Performed By: #### Tracey LYMAN UMICRO #### [facility] [address] [place] [address] Dr. Ashlie Hills pH (U) 5.0 [pH] Normal 5-9 [facility] Comment on above: Performed By: #### MADELINE DIAZRO #### [facility] [address] [place] [address] Dr. Ashlie Hills Protein (U) [Mass/Vol] 100 mg/dL Abnormal NEGATIVE/ TRACE [facility] Comment on above: Performed By: #### PEREZ DIAZICRO #### [facility] [address] [place] [address] Dr. Ashlie Hills SPEC GRAVITY >=1.030 Abnormal 1.005-<=1.025 [facility] Comment on above: Performed By: #### MADELINE DIAZRO #### [facility] [address] [place] [address] Dr. Ashlie Hills UR MICRO IND INDICATED Normal [facility] Comment on above: Performed By: #### Tracey LYMAN UMICRO #### [facility] [address] [place] [address] Dr. sAhlie Hills Urobilinogen Qn (U) 1.0 {Little'U}/dL Normal 0.2 - 1. 0 [facility] Comment on above: Performed By: #### MADELINE DIAZRO #### [facility] [address] [place] [address] Dr. Ashlie Hills PROF CHEM 8 (BAS METB)on Anion gap [Moles/Vol] 12.1 mmol/L Normal [facility] Comment on above: Performed By: #### I NFLUAB #### [facility] [address] [place] [address] Dr. Ashlie Hills Calcium [Mass/Vol] 9.0 mg/dL Normal 8.5-10.1 [facility] Comment on above: Performed By: #### I NFLUAB #### [facility] [address] [address] [address] Ashlie Hills Chloride [Moles/Vol] 101 mmol/L Normal 98-107 [facility] Comment on above: Performed By: #### I NFLUAB #### [facility] [address] [address] [address] Ashlie Hills CO2 [Moles/Vol] 29.1 mmol/L Normal 21.0-32.0 [facility] Comment on above: Performed By: #### I NFLUAB #### [facility] [address] [address] [address] Ashlie Hills Creatinine [Mass/Vol] 0.86 mg/dL Normal 0.55-1.02 [facility] Comment on above: Performed By: #### I NFLUAB #### [facility] [address] [address] [address] Ashlie Hills EGFR-AF INDIAN >60 Normal >=60 [facility] Comment on above: Performed By: #### I NFLUAB #### [facility] [address] [place] [address] Dr. Ashlie Hills EGFR-NON AF INDIAN >60 Normal >=60 [facility] Comment on above: Performed By: #### I NFLUAB #### [facility] [address] [address] [address] Ashlie Hills Glucose [Mass/Vol] 236 mg/dL Critically high 74-106 [facility] Comment on above: Performed By: #### I NFLUAB #### [facility] [address] [address] [address] Ashlie Hills Potassium [Moles/Vol] 4.2 mmol/L Normal 3.5-5.1 [facility] Comment on above: Performed By: #### I NFLUAB #### [facility] [address] [address] [address] Ashlie Hills Sodium [Moles/Vol] 138 mmol/L Normal 136-145 [facility] Comment on above: Performed By: #### I NFLUAB #### [facility] [address] [address] [address] Ashlie Hills Urea nitrogen [Mass/Vol] 11.0 mg/dL Normal 7.0-18.0 [facility] Comment on above: Performed By: #### I NFLUAB #### [facility] [address] [place] [address] Dr. Ashlie Hills Urea nitrogen/Creatinine [Mass ratio] 12.8 mg/mg Normal The [facility] Comment on above: Performed By: #### I NFLUAB #### [facility] [address] [place] [address] Dr. Ashlie Hills URINE MICROSCOPIC ONLYon BACTERIA SMALL Abnormal NONE SEEN The [facility] Comment on above: Performed By: #### Tracey LYMAN UMICRO #### [facility] [address] [place] [address] Dr. Ashlie Hills Bacteria identified Cx Nom (U) INDICATED Normal [facility] Comment on above: Performed By: #### Tracey LYMAN UMICRO #### [facility] [address] [place] [address] Dr. Ashlie Hills CAST NONE SEEN Normal NONE SEEN [facility] Comment on above: Performed By: #### Tracey LYMAN UMICRO #### [facility] [address] [place] [address] Dr. Ashlie Hills Crystals LM Nom (Urine sed) NONE SEEN Normal NONE SEEN [facility] Comment on above: Performed By: #### Tracey LYMAN UMICRO #### [facility] [address] [place] [address] Dr. Ashlie Hills Epithelial cells LM Ql (Urine sed) MODERATE Abnormal NONE SEEN /RARE The [facility] Comment on above: Performed By: #### Tracey LYMAN UMICRO #### [facility] [address] [place] [address] Dr. Ashlie Hills MUCOUS NONE SEEN Normal NONE SEEN The [facility] Comment on above: Performed By: #### Tracey LYMAN UMICRO #### [facility] [address] [place] [address] Dr. Ashlie Hills RBC 0-2 Normal 0-2 The [facility] Comment on above: Performed By: #### E RUR, UMICRO #### [facility] [address] [address] [address] Ashlie Hills WBC 0-2 Abnormal NONE SEEN The [facility] Comment on above: Performed By: #### E RUR, UMICRO #### [facility] [address] [address] [address] Ashlie Hills YEAST PRESENT Abnormal NONE SEEN The [facility] Comment on above: Performed By: #### E RUR, UMICRO #### [facility] [address] [address] [address] Ashlie Hills HIP RIGHT 1 OR 2 VWS WITH PE LVISon 07-20-2020 HIP RIGHT 1 OR 2 VWS WITH PELVIS [facility] Department of Radiology [address] [place] [id number] Patient Name: MITZI MACIAS : 1970 [...] MRI. Electronically signed: Pipo Acevedo. Transcribed by: [email or web address], User Resident: Electronically Signed by: PIPO ACEVEDO @ 07/20/2020 03:45 PM Normal The [facility] Comment on above: Order Comment: evalu ate Vital Signs Date Time Vital Sign Value Performing Clinician Facility 03-08-2022 15:00-0400 Body height 170.18 cm Stephanie Tico Other [facility] Other 03-08-2022 15:00-0400 Body temperature 97.6 [degF] Stephanie Tico Other [facility] Other 03-08-2022 15:00-0400 Diastolic blood pressure 72 mm[Hg] Stephanie Tico Other [facility] Other 03-08-2022 15:00-0400 Respiratory rate 20 /min Stephanie Tico Other [facility] Other 03-08-2022 15:00-0400 SaO2% (BldA) [Mass fraction] 91 % Stephanie Tico Other [facility] Other 03-08-2022 15:00-0400 Systolic blood pressure 131 mm[Hg] Stephanie Tico Other [facility] Other 02-20-2022 09:20-0400 Body height 170.18 cm Stephanie Tico Other [facility] Other 02-20-2022 09:20-0400 Body temperature 96.5 [degF] Stephanie Tico Other [facility] Other 02-20-2022 09:20-0400 Diastolic blood pressure 69 mm[Hg] Stephanie Tico Other [facility] Other 02-20-2022 09:20-0400 Respiratory rate 20 /min Stephanie Tico Other [facility] Other 02-20-2022 09:20-0400 SaO2% (BldA) [Mass fraction] 91 % Stephanie Itco Other [facility] Other 02-20-2022 09:20-0400 Systolic blood pressure 129 mm[Hg] Stephanie Tico Other [facility] Other 02-06-2022 10:24-0400 Blood Pressure Location Julia [employer] [facility] 02-06-2022 10:24-0400 Diastolic blood pressure 76 mm[Hg] Julia VARGAS [facility] 02-06-2022 10:24-0400 Heart rate 70 /min Julia VARGAS [facility] 02-06-2022 10:24-0400 Respiratory rate 16 /min Julia VARGAS [facility] 02-06-2022 10:24-0400 Systolic blood pressure 134 mm[Hg] Julia VARGAS [facility] Encounters Encounter Date Encounter Type Care Provider Facility Start: 04-22-2024 ambulatory GAVIOTA Maysi ty:SHEA Villalobos Start: 08-17-2023 Refill Mckayla Aichholz FINANCIAL ASSISTANT Work Phone: [facility] Comment on above: Vaginal yeast infect ion (Primary Dx) Start: 08-14-2023 Refill Mckayla Aichholz FINANCIAL ASSISTANT Work Phone: [facility] Comment on above: Type 2 diabetes asiya itus with unspecified complications (CMS/[facility]); Edema, unspecified; Edema Start: 07-10-2023 End: 07-10-2023 ambulatory MCKAYLA AICHHOLZ Not Available Start: 12-05-2022 ambulatory MATEUSZ PSOADA . Facility:[facility] Start: 12-05-2022 End: 12-06-2022 Evaluation and management of inpatient UMBERTO HEALYP . Facility:[facility] Start: 11-23-2022 End: 11-23-2022 ambulatory MAIL ORDER CLERK MCKAYLA AICHHOLZ Facility:[facility] Start: 11-22-2022 End: 11-23-2022 ambulatory MAIL ORDER CLERK MCKAYLA AICHHOLZ Facility:[facility] Start: 11-17-2022 End: 11-18-2022 ambulatory SUBHASH GASPAR . Facility:[facility] Start: 11-15-2022 End: 11-16-2022 ambulatory GAVIOTA VEGA Facility:[facility] Wilfredo Start: 11-15-2022 End: 11-15-2022 Patient encounter procedure GAVIOTA VEGA [facility] Start: 10-05-2022 End: 10-05-2022 ambulatory MARIANO DIAB . Facility:[facility] Start: 09-21-2022 End: 09-21-2022 ambulatory MAIL ORDER CLERK MCKAYLA AICHHOLZ Facility:[facility] Start: 09-14-2022 ambulatory RAFAEL GONGORA Facilit y:[facility] Start: 08-24-2022 End: [address] CHAPARRO MORTENSEN . Facility:[facility] Start: 08-21-2022 End: 08-22-2022 [facility]ulatory [facility] Start: 07-27-2022 End: 07-28-2022 ambulatory CECILIA SILVESTRETray . Facility:[facility] Start: 07-18-2022 End: 07-19-2022 ambulatory CECILIA SILVESTRETray . Facility:[facility] Start: 07-18-2022 End: 07-19-2022 ambulatory [facility] Facility[facility] Start: 07-06-2022 End: 07-06-2022 ambulatory MAIL ORDER CLERK MCKAYLA BLAS Facility:[facility] Start: 05-11-2022 End: 05-12-2022 ambulatory GIL VALENZUELA . Facility:[facility] Start: 04-25-2022 End: 04-25-[address] CHAPARRO MORTENSEN . Facility:[facility] Start: 04-20-2022 End: 04-21-2022 ambulatory GIL VALENZUELA . Facility:[facility] Start: 03-08-2022 End: 03-08-2022 ambulatory Stephanie Tico Other [facility] Other Start: 03-08-2022 Office outpatient vi sit 15 minutes Stephanie Tico [facility] Start: 03-03-2022 End: 03-04-2022 ambulatory MAIL ORDER CLERK MCKAYLA ELIZABETHZ Facility:[facility] Start: 02-20-2022 End: 02-20-2022 ambulatory Stephanie Tico Other [facility] Other Start: 02-20-2022 Office outpatient ne w 45 minutes Stephanie Tico [facility] Start: 02-06-2022 ambulatory GAVIOTA VEGA Facility :[facility] Start: 02-06-2022 End: 02-07-2022 ambulatory MCKAYLA BLAS Facility:[facility] Start: 02-06-2022 End: 02-06-2022 Patient encounter procedure Julia VARGAS [facility] Start: 01-19-2022 End: 01-20-2022 ambulatory GIL VALENZUELA . Facility:[facility] Start: 01-05-2022 ambulatory GAVIOTA VEGA Facility :[facility] Start: 12-24-2021 End: 12-24-2021 ambulatory OLE RAMIREZ Facility: Start: 08-26-2020 End: 09-10-2020 Patient encounter procedure MARY TAVERAS Facility:[facility] Start: 10-30-2019 End: 10-30-2019 Emergency department patient visit JAMES Reis [facility] Start: 10-30-2019 End: 10-30-2019 Emergency department patient visit James Desouza [facility] Emergency [facility] Start: 11-02-2016 Preoperative state Stephanie Tico Other [facility] Other Procedures Date Procedure Procedure Detail Performing Clinician Start: 11-22-2022 Mammography Mckayla clifford FINANCIAL ASSISTANT Work Phone: Start: 10-08-2015 Microscopic observat ion [Identifier] in Cervix by Cyto stain Mckayla Blas NP Work Phone: H/O: hysterectomy Julia LARA Laparoscopic cholecystectomy Julia VARGAS Operative procedure on foot Julia VARGAS Plan of Treatment Date Care Activity Detail Author Start: 08-03-2025 Screening for malign ant neoplasm of colon [facility] Start: 11-24-2023 Urine screening for protein Diabetes: Urine Protein Screening [facility] Start: 11-23-2023 Screening for malign ant neoplasm of breast Mammogram [facility] Start: 10-15-2023 End: 10-15-2023 Patient encounter procedure 10/15/2023 4:30 PM EDT Office Visit [facility] [address] [place] [id number] Mckayla Blas NP [address] [place] [address] [facility] Start: 08-09-2023 Hemoglobin A1c measurement Diabetes: Hemoglobin A1C [facility] Start: 05-27-2021 Glaucoma screening Diabetes: R etinopathy Screening [facility] Start: 03-09-2020 Influenza vaccination Flu vacc ine (Season Ended) [place] Start: 10-07-2018 Screening for malign ant neoplasm of cervix [facility] Start: 2010 Lipid panel Lipid screen [place], [place] Start: 2000 Screening for malign ant neoplasm of cervix HPV/Cotest [facility] Start: 1991 Screening for malign ant neoplasm of cervix Cervical cancer screen [place], [place] Start: 1989 DTaP/Tdap/Td vaccine (1 - Tdap) DTaP/Tdap/Td vaccine ( - Tdap) [place] Start: 1985 HIV [facility] [place] [place] Start: 1970 Medicare Annual Well ness (AWV) Medicare Annual Wellness (AWV) [facility] Start: 1970 Screening for malign ant neoplasm of colon [facility] Immunizations Immunization Date Immunization Notes Care Provider [facility] 05-18-2023 influenza, injectabl e, quadrivalent, contains preservative Mckayla Blas NP Work Phone: [facility] 07-19-2021 SARS-CoV-2 (COVID-19 ) mRNA BNT-162b2 vax [employer] [facility] 10-28-2020 SARS-CoV-2 (COVID-19 ) mRNA BNT-162b2 vax [employer] [facility] 10-08-2020 SARS-CoV-2 (COVID-19 ) mRNA BNT-162b2 vax [employer] [facility] Payers Date Payer Category Payer Medicaid MEDICAID [facility] [id number] 2018-Present [phone] [address] [place] [address] Medicaid [id number] 2017 Medicare [employer] MEDICARE UHC DUAL COMPLETE [id number] 2017-Present [address] [place] [address] [id number] 1970 Unknown [id number] 2.16.840.1.885380.3.579.2. 647 1970 Unknown [id number] 2.16.840.1.656914.3.579.2. 727 1970 Unknown [id number] 2.16.840.1.204107.3.579.2. 727 1970 Unknown [id number] 2.16.840.1.709825.3.579.2. 727 1970 Unknown [id number] 2.16.840.1.444984.3.579.2. 727 1970 Unknown [id number] 2.16.840.1.613693.3.579.2. 593 1970 Unknown [id number] 2.16.840.1.719202.3.579.2. 593 1970 Unknown [id number] 2.16.840.1.799682.3.579.2. 593 1970 Unknown [id number] 2.16.840.1.055541.3.579.2. 593 1970 Unknown [id number] 2.16.840.1.241308.3.579.2. 593 1970 Unknown [id number] 2.16.840.1.626374.3.579.2. 593 1970 Unknown [id number] 2.16.840.1.781434.3.579.2. 593 1970 Unknown [id number] 2.16.840.1.396799.3.579.2. 593 1970 Unknown [id number] 2.16.840.1.019401.3.579.2. 593 1970 Unknown [id number] 2.16.840.1.386693.3.579.2. 593 1970 Unknown [id number] 2.16.840.1.426433.3.579.2. 593 1970 Unknown [id number] 2.16.840.1.915482.3.579.2. 593 1970 Unknown [id number] 2.16.840.1.295361.3.579.2. 593 1970 Unknown [id number] 2.16.840.1.656040.3.579.2. 593 1970 Unknown [id number] 2.16.840.1.862633.3.579.2. 593 1970 Unknown [id number] 2.16.840.1.851883.3.579.2. 593 1970 Unknown [id number] 2.16.840.1.148755.3.579.2. 593 1970 Unknown [id number] 2.16.840.1.978733.3.579.2. 593 1970 Unknown [id number] 2.16.840.1.697262.3.579.2. 593 1970 Unknown [id number] 2.16.840.1.395652.3.579.2. 593 1970 Unknown [id number] 2.16.840.1.967035.3.579.2. 593 1970 Unknown [id number] 2.16.840.1.118322.3.579.2. 593 1970 Unknown [id number] 2.16.840.1.195138.3.579.2. 1259 1959 Medicaid [id number] 1959 Private Health Insurance [id number] 1959 Unknown [id number] 2.16.840.1.874979.19 Social History Date Type Detail Facility Start: 02-17-2014 End: 07-10-2023 Tobacco smoking status NHIS Current every day smoker [place], [place] Start: 02-17-1994 History of tobacco use Cigarette Smo ker [place] Start: 02-17-2014 End: 07-10-2023 Cigarettes smoked current (pack per day) - Reported [place] Start: 02-17-2014 Alcohol intake Current drinke r of alcohol (finding) [place] Start: 02-17-2014 Alcohol Comment Rare [facility], [place] Start: 1970 Sex Assigned At Not on file M [place], [place] Exposure to SARS-CoV -2 (event) Unable to assess [place] Start: 02-06-2022 Tobacco smoking status Smoker (findi ng) [facility] Start: 07-10-2023 Sex Assigned At Female [facility] Start: 11-15-2022 Tobacco smoking status Heavy t obacco smoker (finding) [facility] Start: 07-10-2023 Tobacco use and exposure Smoke [...] (one) time each day. Use as instructed [id number] Functional Status Date Assessment Result Facility 11-15-2022 Functional Status N/A [facility] 02-06-2022 Functional Status N/A [facility] Clinical Notes 01-19-2022 to 11-15-2022 Note [...] include: ?8 oz (237 mL) of milk, pvgtlxq-sdnqomvlcazw-fzejn milk, and calcium-fortifiedfruit juice. Calcium-fortified means that [...] ?Spinach (cooked), rhubarb, beets, sweet potatoes, and American chard. ?Peanuts. ?Potato chips, liberian fries, and baked potatoes with skin on. ?Nuts and nut products. ?Chocolate. If you regularly take a diuretic medicine, make sure to eat at least 1 or 2 servings of fruits or vegetables that are high in potassium each day. These include: ?Avocado. ?Banana. ?[place], prune, carrot, or tomato juice. ?Baked potato. [...] magnesium, fish oil, or vitamin B6. Take mvef-lyu-mvzwvbu and prescription medicines only as told by [...] Casseroles. Pizza. Lasagna. Frozen meals. Potato chips. Swazi fries. The items listed above may not [...] provider. Document Revised: 03/06/2022 Document Reviewed: 03/06/2022 [employer] Patient Education 2022 [employer]. Follow Up Care 02/06/2022 11:44:09 With:GAVIOTA VEGA PA-C, URL Address: [facility] [place] [address] When: Unknown [facility] 08-24-2022 Note CONSULTATION CONSULTATION DATE: 08/24/2022 HISTORY [...] We maintain her on pain medication with Glendale 5/325 t.i.d., diclofenac 75 mg b.i.d. Her [...] her at this point. A refill for Glendale 5/325 t.i.d. and diclofenac 75 mg b.i.d. will be sent to the pharmacy. Vitamin compliance and nutrition were discussed and enforced. I did highly encourage her to use exercise bands to increase the strength in her lower extremities. We will see her in three months' time, unless otherwise indicated, and patient agrees. [facility] 05-11-2022 Note CONSULTATION CONSULTATION DATE: 05/11/2022 This [...] 150. Medications include Lyrica 300 mg b.i.d., Glendale 5/325 t.i.d., diclofenac 75 mg b.i.d. and [...] her medications today. We will maintain Lyrica, Glendale and diclofenac at the set dose and frequency. We will follow-up in the clinic in three months' time. The patient is in agreement to this. Vitamin importance and nutrition were discussed. [facility] 04-20-2022 Note CONSULTATION CONSULTATION DATE: 04/20/2022 HISTORY [...] medications include Tylenol, Lyrica 300 mg b.i.d., Glendale 5/325 t.i.d., amitriptyline, diclofenac and duloxetine. Patient's [...] be followed up in the clinic. [facility] 03-08-2022 Evaluation note Encounter Date Diagnosis Assessment [...] to the DANIEL. Thrombocytopenia is unclear etiology. [facility] 08-15-2022 Evaluation note* Encounter Date Diagnosis [...] follow with Dr. Souza and Dr. Vargas. [facility] 08-01-2022 Hospital Discharge instructions Patient Education [...] fried and sweet foods. General instructions Take hufy-ixc-aaqcngf and prescription medicines only as told by [...] 04/21/2010 Document Revised: 10/16/2019 Document Reviewed: 07/11/2018 [employer] Patient Education 2020 [employer]. Follow Up Care 01/05/2022 12:02:03 With:REGLA PHIPPS, Julia Joya, URL Address: [facility] [address] [place] [address]- [phone] When:Within 6 Month(s) Comments:w/ repeat CT A/P [facility] 07-14-2022 NoteCONSULTATION PROCEDURE DATE: 01/19/2022 [...] pattern and the patient tolerated it well. [facility] Signed and Approved by: GIL VALENZUELA . 01/27/2022 14:15:00[facility]07-14-2022 NoteCONSULTATION CONSULTATION DATE: 01/19/2022 This is a [...] today. Medications include Lyrica 300 mg b.i.d., Glendale 5/325 t.i.d., diclofenac 75 mg b.i.d. and [...] in three months' time unless otherwise indicated. [facility] Signed and Approved by: GIL VALENZUELA . 01/27/2022 14:15:00[facility] HospitalEvaluation + Plan note Future Appointments Appointment Date:08/14/2022 09:15:00 AM Scheduled Provider:Julia VARGAS MD Location:[facility] Appointment Type:URO Office Visit [facility] evaluation + Plan note Future Appointments Appointment Date:04/22/2024 10:00:00 AM Scheduled Provider:GAVIOTA VEGA PA-C Location:[facility] Appointment Type:URO Office Visit [facility] evaluation note* Diagnosis Type 2 diabetes mellitus with unspecified complications (CMS/[facility]) Edema, unspecified Edema documented in this [...] History sepsis 2011 Hospitalization History SEE ABOVE [facility] Hospital course Narrative No data available for this section [facility] progress note No data available for this section [facility] reason for referral (narrative) , Referral to Dr. 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 Advance Directives and Living Will Power of Ticket Worker Summary Purpose Family History No Family History Records FoundNo Family History Records FoundNo Family History Records FoundNo Family History Records FoundNo Family History Records Found Additional Source Comments INFORMATION SOURCE (unrecogn ized section and content) DATE CREATED AUTHOR 10/30/2019 [facility] DATE CREATED AUTHOR AUTHOR'S ORGANIZ ATION 09/15/2020 [facility] DATE CREATED AUTHOR AUTHOR'S ORGANIZ ATION 11/16/2022 [facility] DATE CREATED AUTHOR AUTHOR'S ORGANIZ ATION 12/19/2022 [facility] pital DATE CREATED AUTHOR AUTHOR'S ORGANIZ ATION 07/11/2023 [facility] dical Specialists EPIC Care Team (unrecognized sect ion and content) [employer] 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 [employer] provides no warranty or guarantee of the accuracy or completeness of information in this document.
[2023-09-10 17:03] LABS: Troponin I High Sensitivity 8.5 pg/mL (4.0-51.3)
[2023-09-10 17:05] LABS: Bacteria Urine TRACE #/HPF (NONE SEEN); RBC Urine 0-2 #/HPF (0-2)
[2023-09-10 17:06] LABS: Cast Seen? SEEN #/LPF (NONE SEEN); Crystals Seen? None Seen #/HPF (None Seen); Fine Granular Casts Urine RARE; Hyaline Casts Urine RARE; Mucus Urine NONE SEEN (NONE SEEN); Squamous Epithelial Cell Urine MODERATE #/LPF (NONE/RARE); Urine Culture Indicated YES
[2023-09-10] MEDS: PIPERACILLIN SODIUM/TAZOBACTAM 4.5 GM in 0.9 % SODIUM CHLORIDE 50 ML IV (17:09)
[2023-09-10 17:26] LABS: Glucometer 298 mg/dL (74-106)
[2023-09-10 17:37] LABS: Magnesium 1.7 mg/dL (1.8-2.4)
[2023-09-10 17:47] LABS: PROCALCITONIN 0.13 ng/mL (0.00-0.50)
[2023-09-10] MEDS: PANTOPRAZOLE SODIUM 40 MG VIAL IV (18:00)
--- NOTE | 2023-09-10 18:50 | P.HP_ITS ---
H&P: HPI History of Present Illness Chief complaint: SHORTNESS OF BREATH COPD EXACERBATION INFLUNZA A Narrative: Patient presented to the emergency room with increasing shortness of breath. Found to have influenza A. Patient mated for acute exacerbation of COPD secondary to influenza When I saw patient up in the intensive care unit, she was sitting up at the bedside, states her breathing is somewhat better although her just darted treating Review of Systems ROS Status of ROS 10 or more systems reviewed and unremark able except as noted in history and below PFSH [facility] Medical History Hypertension ?I10 - Essential (primary) hypertension (ICD-10) Obesity ?E66.9 - Obesity, unspecified (ICD-10) Amputation toe ?S98.139A - Complete traumatic amputation of one unspecified lesser toe, initial encounter (ICD-10) Neuropathy ?G62.9 - Polyneuropathy, unspecified (ICD-10) Acid reflux ?K21.9 - Gastro-esophageal reflux disease without esophagitis (ICD-10) Diabetes ?E11.9 - Type 2 diabetes mellitus without complications (ICD-10) COPD (chronic obstructive pulmonary disease) ?J44.9 - Chronic obstructive pulmonary disease, unspecified (ICD-10) Asthma ?J45.909 - Unspecified asthma, uncomplicated (ICD-10) High cholesterol ?E78.00 - Pure hypercholesterolemia, unspecified (ICD-10) Surgical History History of hammertoe correction ?Z98.890 - Other specified postprocedural states (ICD-10) ?Z87.39 - Personal history of other diseases of the musculoskeletal system and connective tissue (ICD-10) Hx of cholecystectomy ?Z90.49 - Acquired absence of other specified parts of digestive tract (ICD- 10) History of hysterectomy ?Z90.710 - Acquired absence of both cervix and uterus (ICD-10) Social History Within the past year, how often did you have a drink containing alcohol: never Score interpretation: A score less than 3 is consistent with normal alcohol consumption. Smoking status: Former smoker Highest level of school completed/degree received: Associate degree: occupational, technical, vocational program Meds Home Medications and Allergies Home Medications Medication Instructions Recorded Confirmed Type acetaminophen 500 mg capsule 1,000 mg PO Q6H PRN fever or pain 03/20/23 09/10/23 History amitriptyline 25 mg tablet 25 mg PO DAILY 03/20/23 09/10/23 History aspirin 81 mg tablet,delayed 81 mg PO DAILY 03/20/23 09/10/23 History release (Adult Aspirin Regimen) budesonide-formoterol HFA 160 2 inh inhalation BID 03/20/23 09/10/23 History mcg-4.5 mcg/actuation aerosol inhaler (Symbicort) dulaglutide 3 mg/0.5 mL 3 mg subcut QWEEK 03/20/23 09/10/23 History [facility] furosemide 40 mg tablet 40 mg PO DAILY 03/20/23 09/10/23 History insulin aspart U-100 100 unit/mL 1 sliding scale dose subcut 03/20/23 09/10/23 History (3 mL) subcutaneous pen (Novolog USEASDIRECTD FlexPen U-100 Insulin aspart) insulin glargine 100 unit/mL 58 unit subcut BID 03/20/23 09/10/23 History subcutaneous solution (Lantus U-100 Insulin) lisinopril 20 mg tablet 20 mg PO DAILY 03/20/23 09/10/23 History omeprazole 20 mg capsule,delayed 20 mg PO DAILY 03/20/23 09/10/23 History release pregabalin 300 mg capsule 300 mg PO Q12H 03/20/23 09/10/23 History duloxetine 60 mg capsule,delayed 60 mg PO BID #60 caps 04/05/23 09/10/23 Rx release levofloxacin 750 mg tablet 750 mg PO DAILY 10 days #10 tabs 09/03/23 09/10/23 Rx hydrocodone 5 mg-acetaminophen 325 1 tab PO TID PRN pain #90 tabs 09/04/23 09/10/23 Rx mg tablet dapagliflozin propanediol 10 mg 10 mg PO .QD 09/10/23 09/10/23 History tablet ergocalciferol (vitamin D2) 1,250 50,000 unit PO QWEEK 09/10/23 09/10/23 History mcg (50,000 unit) capsule potassium chloride 10 mEq 10 meq PO .QD 09/10/23 09/10/23 History capsule,extended release simvastatin 10 mg tablet 10 mg PO QAM 09/10/23 09/10/23 History Allergies Allergy/AdvReac Type Severity Reaction Status Date / Time No Known Drug Allergies Allergy Verified 08/14/23 09:37 Exam Constitutional Vital Signs, click to edit/add: Last Vital Signs Temp 99.6 F 09/10/23 13:55 Pulse 95 H 09/10/23 17:15 Resp 17 09/10/23 17:00 BP 156/82 H 09/10/23 16:52 Pulse Ox 89 L 09/10/23 17:48 O2 Del Method Nasal Cannula 09/10/23 17:48 O2 Flow Rate 6 09/10/23 17:48 Documenting provider has reviewed patient's vital signs: yes Common normals: apparent distress (Mild, patient dyspnea) Chest Common normals: inspection of chest normal Respiratory Common normals: no retractions; abnormal respiratory effort (Mild conversational dyspnea) and not clear to ascultation bilaterally Auscultation: rhonchi (Throughout) and wheezes Cardio Common normals: regular rate and regular rhythm GI Common normals: Normal to inspection, nondistended, normoactive bowel sounds present (Morbidly obese) Results Labs Labs: Short CBC 09/10/23 Range/Units 14:05 WBC 10.8 (4.0-11.0) 10^3/uL Hgb 15.3 (12.0-16.0) g/dL Hct 48.5 H (36.0-48.0) % Plt Count 131 L (150-450) 10^3/uL BMP 09/10/23 14:05 Sodium 140 Potassium 4.2 Chloride 103 Carbon Dioxide 32.6 H BUN 13.0 Creatinine 0.79 Glucose 255 H Calcium 8.4 L Liver Function 09/10/23 Range/Units 14:05 Total Bilirubin 0.6 (0.2-1.0) mg/dL AST 18 (15-37) U/L ALT 19 (14-59) U/L Alkaline Phosphatase 61 (46-116) U/L Albumin 2.7 L (3.4-5.0) g/dL Urine 09/10/23 Range/Units 16:00 Urine Color Yellow (YELLOW) Urine Clarity Sl cloudy (CLEAR) Urine pH 5.5 (5.0-9.0) Ur Specific [place] >=1.030 A (1.005-1.025) Urine Protein 100 A (NEG/TRACE) mg/dL Urine Glucose (UA) 250 A (NEGATIVE) mg/dL ABG ABG results: 09/10/23 14:22 VBG pH 7.350 VBG pCO2 51.0 Assessment and Plan Assessment and Plan (1) COPD exacerbation: (2) Influenza A: (3) Hypoxia: (4) Hypertension: Qualifiers: Hypertension type: unspecified Qualified Code(s): I10 - Essential (primary) hypertension Plan Acute hypoxia, respiratory distress, sinus tachycardia secondary to acute exacerbation of COPD secondary to influenza. Tamiflu, steroids, aerosols, antibiotics, sputum culture pending, IPV treatments Thrombocytopenia-monitor daily likely related to viral syndrome as outlined above IDDM-insulin sliding scale Hypertension-continue with home medications, monitor daily GERD-continue with home medications Anxiety and depression-continue home medications Acute exacerbation of COPD with significant hypoxia, unlikely to improve her pulmonary status within 48 hours, so change patient to inpatient status in the intensive care unit for medically necessary Treatment.
[2023-09-10 19:45] LABS: Troponin I High Sensitivity 14.6 pg/mL (4.0-51.3)
[2023-09-10] MEDS: HYDROCODONE/ACET 5-325 MG TABLET 1 TAB PO (19:59)
[2023-09-10] MEDS: PREGABALIN 100 MG CAPSULE 300 MG PO (21:15)
[2023-09-10] MEDS: DULOXETINE HCL 60 MG CAPSULE.DR PO (21:16)
[2023-09-10] MEDS: AMITRIPTYLINE HCL 25 MG TABLET PO (21:16)
[2023-09-10] MEDS: INSULIN DETEMIR 300 UNIT/3 ML INSULN.PEN 58 UNIT SQ (21:17)
[2023-09-10] MEDS: INSULIN ASPART 300 UNIT/3 ML PEN SUBQ (21:18)
[2023-09-10 21:23] LABS: Glucometer 309 mg/dL (74-106)
[2023-09-10] MEDS: ALBUTEROL SULFATE 2.5 MG/3 ML VIAL NEB IH (21:30)
[2023-09-10] MEDS: BENZONATATE 100 MG CAPSULE 200 MG PO (22:33)
[2023-09-10] MEDS: BUDESONIDE 0.5 MG/2 ML AMPULE NEB IH (23:37)
[2023-09-11] VITALS (24 sets, daily range): BP systolic 109–145; BP diastolic 58–78; PULSE 54–102; RESP 14–22; TEMP 36.6–37; O2SAT 90–96
[2023-09-11] MEDS: METHYLPREDNISOLONE SOD SUCC PF 125 MG/2 ML VIAL IVP (01:31)
[2023-09-11] MEDS: PIPERACILLIN SODIUM/TAZOBACTAM 3.375 GM in 0.9 % SODIUM CHLORIDE 50 ML IV ×3 (01:32→17:47)
[2023-09-11] MEDS: ACETAMINOPHEN 500 MG TABLET 1000 MG PO (01:53)
[2023-09-11] MEDS: IPRATROPIUM/ALBUTEROL SULFATE 3 ML AMPUL.NEB IH ×4 (04:20→23:00)
[2023-09-11] MEDS: VANCOMYCIN HCL 1,750 MG in 0.9 % SODIUM CHLORIDE 500 ML 250 MG IV ×2 (04:22→15:39)
[2023-09-11 05:28] LABS: Basophils Percent Auto 0.3 % (0.2-2.0); Hematocrit 48.2 % (36.0-48.0); Hemoglobin 14.8 g/dL (12.0-16.0); Immature Granulocytes Abs Auto 0.05 10^3/uL (0.00-0.03); Immature Granulocytes Pct Auto 0.7 % (0.0-0.5); Lymphocytes Absolute Auto 0.8 10^3/uL (1.2-3.8); Mean Corpuscular HGB Conc 30.7 g/dL (29.9-35.2); Mean Corpuscular Hemoglobin 28.7 pg (26.7-34.0); Mean Corpuscular Volume 93.4 fL (81.0-99.0); Mean Platelet Volume 12.8 fL (9.5-13.5); Monocytes Absolute Auto 0.2 10^3/uL (0.3-0.8); Monocytes Percent Auto 2.1 % (1.7-12.0); Neutrophils Percent Auto 84.9 % (43.0-75.0); Platelet Count 95 10^3/uL (150-450); Red Blood Count 5.16 10^6/uL (4.20-5.40); Red Cell Distribution Width 14.6 % (11.0-15.0)
[2023-09-11 05:53] LABS: Alanine Aminotransferase 25 U/L (14-59); Albumin Globulin Ratio 0.6; Albumin Level 2.7 g/dL (3.4-5.0); Alkaline Phosphatase 57 U/L (46-116); Anion Gap 7.5; Aspartate Amino Transferase 23 U/L (15-37); BUN Creatinine Ratio 18.2; Bilirubin Total 0.4 mg/dL (0.2-1.0); Calcium 8.5 mg/dL (8.5-10.1); Chloride 101 mmol/L (98-107); Estimated GFR (African America >60 (>=60); Estimated GFR (Non-African Ame >60 (>=60); Globulin 4.5 g/dL; Glucose 372 mg/dL (74-106); Potassium 4.5 mmol/L (3.5-5.1); Sodium 136 mmol/L (136-145); Total Protein 7.2 g/dL (6.4-8.2)
[2023-09-11] MEDS: INSULIN ASPART 300 UNIT/3 ML PEN SUBQ ×4 (07:45→22:06)
[2023-09-11] MEDS: PANTOPRAZOLE SODIUM 40 MG VIAL IV (08:12)
[2023-09-11] MEDS: ASPIRIN 81 MG TABLET.DR PO (08:12)
[2023-09-11] MEDS: CANAGLIFLOZIN 100 MG TABLET 300 MG PO (08:12)
[2023-09-11] MEDS: METHYLPREDNISOLONE SOD SUCC PF 125 MG/2 ML VIAL 60 MG IVP ×3 (08:12→22:01)
[2023-09-11] MEDS: FUROSEMIDE 40 MG TABLET PO (08:12)
[2023-09-11] MEDS: DULOXETINE HCL 60 MG CAPSULE.DR PO ×2 (08:13→22:03)
[2023-09-11] MEDS: ATORVASTATIN CALCIUM 10 MG TABLET PO (08:13)
[2023-09-11] MEDS: LISINOPRIL 20 MG TABLET PO (08:13)
[2023-09-11] MEDS: PREGABALIN 100 MG CAPSULE 300 MG PO ×2 (08:13→22:02)
[2023-09-11] MEDS: INSULIN DETEMIR 300 UNIT/3 ML INSULN.PEN 66 UNIT SQ ×2 (08:14→22:07)
--- NOTE | 2023-09-11 08:18 | P.PN_ITS ---
Progress Note: Subjective Subjective Interval history: Patient with no significant improvement from previous day. Still with persisting cough and dyspnea. Exam Constitutional Vital Signs, click to edit/add: Last Vital Signs Temp 98.0 F 09/11/23 04:44 Pulse 86 09/11/23 06:00 Resp 15 09/11/23 06:00 BP 134/58 09/11/23 04:44 Pulse Ox 93 L 09/11/23 06:00 O2 Del Method Nasal Cannula 09/11/23 04:20 O2 Flow Rate 6 09/11/23 06:00 Documenting provider has reviewed patient's vital signs: yes Common normals: apparent distress (Mild, patient dyspnea) Chest Common normals: inspection of chest normal Respiratory Common normals: no retractions; abnormal respiratory effort (Mild conversational dyspnea) and not clear to ascultation bilaterally Auscultation: rhonchi (Throughout-no improve) and wheezes Cardio Common normals: regular rate and regular rhythm GI Common normals: Normal to inspection, nondistended, normoactive bowel sounds present (Morbidly obese) Progress Note: Objective Labs Labs: Short CBC 09/10/23 09/11/23 Range/Units 14:05 04:50 WBC 10.8 7.0 (4.0-11.0) 10^3/uL Hgb 15.3 14.8 (12.0-16.0) g/dL Hct 48.5 H 48.2 H (36.0-48.0) % Plt Count 131 L 95 L (150-450) 10^3/uL BMP 09/10/23 09/11/23 14:05 04:50 Sodium 140 136 Potassium 4.2 4.5 Chloride 103 101 Carbon Dioxide 32.6 H 32.0 BUN 13.0 14.0 Creatinine 0.79 0.77 Glucose 255 H 372 H Calcium 8.4 L 8.5 Liver Function 09/10/23 09/11/23 Range/Units 14:05 04:50 Total Bilirubin 0.6 0.4 (0.2-1.0) mg/dL AST 18 23 (15-37) U/L ALT 19 25 (14-59) U/L Alkaline Phosphatase 61 57 (46-116) U/L Albumin 2.7 L 2.7 L (3.4-5.0) g/dL Urine 09/10/23 Range/Units 16:00 Urine Color Yellow (YELLOW) Urine Clarity Sl cloudy (CLEAR) Urine pH 5.5 (5.0-9.0) Ur Specific [place] >=1.030 A (1.005-1.025) Urine Protein 100 A (NEG/TRACE) mg/dL Urine Glucose (UA) 250 A (NEGATIVE) mg/dL Progress Note: A&P Assessment and Plan (1) COPD exacerbation: Plan Acute hypoxia, respiratory distress, sinus tachycardia secondary to acute exacerbation of COPD secondary to influenza. Try to be more aggressive with the IPV treatments today otherwise continue with care. Thrombocytopenia-monitor daily likely related to viral syndrome as outlined above IDDM-insulin sliding scale-cut back on steroids today, increased long-acting Hypertension-continue with home medications, monitor daily GERD-continue with home medications Anxiety and depression-continue home medications Leukourea-check urine culture tomorrow Tzxghdlexpsclg-wcilcuuqkj-hfsuinej Acute exacerbation of COPD with significant hypoxia, unlikely to improve her pulmonary status within 48 hours, maintain patient in the ICU, likely 2 more day hospitalization
[2023-09-11] MEDS: POTASSIUM CHLORIDE 10 MEQ ER TABLET PO (08:22)
[2023-09-11] MEDS: OSELTAMIVIR PHOSPHATE 75 MG CAPSULE PO ×2 (08:23→22:02)
--- NOTE | 2023-09-11 09:41 | CM.NOTE ---
Rounds made with Dr. Desouza. Plan of care-decrease IV steroids and wean oxygen back to daily home liters reviewed with Mitzi by Dr. Desouza. No discharge today.
--- NOTE | 2023-09-11 10:29 | CM.NOTE ---
Important Message From Medicare discussed with pt, pt verbalizes understanding and signs paper. Original given to pt and copy placed on pt's chart.
[2023-09-11] MEDS: BUDESONIDE 0.5 MG/2 ML AMPULE NEB IH ×2 (11:24→23:00)
[2023-09-11 11:40] LABS: Glucometer 246 mg/dL (74-106)
--- NOTE | 2023-09-11 11:40 | SWNOTE1 ---
SW called [employer] and they do not provide oxygen to pt. They did receive information in regards to bipap/cpap in May from [place] [facility], they are working on this with pt, but not oxygen. SW called [facility] and they do not provide oxygen to pt. SW to speak to pt.
--- NOTE | 2023-09-11 12:15 | SWNOTE1 ---
SW spoke to pt and let her know [place] and [employer] do not provide her home oxygen. SW asked about [facility] and [employer], pt voiced [facility] sounds familiar. SW to call. SW called and spoke to Rita, they voiced there records show last service was on 12/06/21, script was for 3 liters continuous. [facility] then was transferred to a different person to see if they could look further in to pt's account. Rita will have to call [facility], they took [facility]ACO name and number and will return call.
--- NOTE | 2023-09-11 12:29 | SWNOTE1 ---
SW spoke to pt's . He was at home and looked at concentrator and all it said was direct supply. The tanks were in basement as she is too scared to use any of those. He also voiced she only wears her oxygen as needed.
[2023-09-11 16:55] LABS: Glucometer 232 mg/dL (74-106)
[2023-09-11] MEDS: SODIUM CHLORIDE 0.9% INHALATION 3 ML NEB 6 ML IH ×2 (17:42→23:00)
[2023-09-11] MEDS: SODIUM CHLORIDE 0.9% INHALATION 3 ML NEB IH (17:50)
[2023-09-11 21:59] LABS: Glucometer 217 mg/dL (74-106)
[2023-09-11] MEDS: HYDROCODONE/ACET 5-325 MG TABLET 1 TAB PO (22:02)
[2023-09-11] MEDS: AMITRIPTYLINE HCL 25 MG TABLET PO (22:03)
--- NOTE | 2023-09-11 23:00 | RESP.RT ---
decreased down to 4L
[2023-09-12] VITALS (30 sets, daily range): BP systolic 131–160; BP diastolic 62–88; PULSE 57–160; RESP 0–52; TEMP 36.4–36.6; O2SAT 90–97
[2023-09-12] MEDS: PIPERACILLIN SODIUM/TAZOBACTAM 3.375 GM in 0.9 % SODIUM CHLORIDE 50 ML IV ×3 (02:59→17:58)
[2023-09-12] MEDS: METHYLPREDNISOLONE SOD SUCC PF 125 MG/2 ML VIAL 60 MG IVP ×3 (03:00→19:09)
[2023-09-12 03:33] LABS: Basophils Percent Auto 0.2 % (0.2-2.0); Hematocrit 48.9 % (36.0-48.0); Hemoglobin 14.8 g/dL (12.0-16.0); Immature Granulocytes Abs Auto 0.07 10^3/uL (0.00-0.03); Immature Granulocytes Pct Auto 0.6 % (0.0-0.5); Lymphocytes Absolute Auto 1.4 10^3/uL (1.2-3.8); Lymphocytes Percent Auto 11.2 % (20.5-60.0); Mean Corpuscular HGB Conc 30.3 g/dL (29.9-35.2); Mean Corpuscular Hemoglobin 28.8 pg (26.7-34.0); Mean Corpuscular Volume 95.1 fL (81.0-99.0); Monocytes Absolute Auto 0.6 10^3/uL (0.3-0.8); Monocytes Percent Auto 4.7 % (1.7-12.0); Neutrophils Absolute Auto 10.2 10^3/uL (1.4-6.5); Neutrophils Percent Auto 83.3 % (43.0-75.0); Platelet Count 114 10^3/uL (150-450); Red Blood Count 5.14 10^6/uL (4.20-5.40); Red Cell Distribution Width 14.6 % (11.0-15.0); White Blood Count 12.2 10^3/uL (4.0-11.0)
[2023-09-12 03:46] LABS: Alanine Aminotransferase 27 U/L (14-59); Albumin Globulin Ratio 0.6; Albumin Level 2.6 g/dL (3.4-5.0); Alkaline Phosphatase 51 U/L (46-116); Anion Gap 3.1; Aspartate Amino Transferase 20 U/L (15-37); BUN Creatinine Ratio 26.5; Bilirubin Total 0.2 mg/dL (0.2-1.0); Calcium 8.9 mg/dL (8.5-10.1); Carbon Dioxide 35.4 mmol/L (21.0-32.0); Chloride 107 mmol/L (98-107); Estimated GFR (African America >60 (>=60); Estimated GFR (Non-African Ame >60 (>=60); Globulin 4.4 g/dL; Glucose 186 mg/dL (74-106); Magnesium 2.4 mg/dL (1.8-2.4); Potassium 4.5 mmol/L (3.5-5.1); Sodium 141 mmol/L (136-145)
[2023-09-12 03:47] LABS: Vancomycin Trough 13.7 ug/mL (5.0-20.0)
[2023-09-12] MEDS: VANCOMYCIN HCL 1,750 MG in 0.9 % SODIUM CHLORIDE 500 ML 250 MG IV ×2 (04:56→15:58)
[2023-09-12] MEDS: IPRATROPIUM/ALBUTEROL SULFATE 3 ML AMPUL.NEB IH ×4 (05:04→22:56)
--- NOTE | 2023-09-12 05:04 | RESP.RT ---
decreased down to 3L
[2023-09-12 07:27] LABS: Glucometer 170 mg/dL (74-106)
[2023-09-12] MEDS: CANAGLIFLOZIN 100 MG TABLET 300 MG PO (08:04)
[2023-09-12] MEDS: ASPIRIN 81 MG TABLET.DR PO (08:04)
[2023-09-12] MEDS: DULOXETINE HCL 60 MG CAPSULE.DR PO ×2 (08:04→21:53)
[2023-09-12] MEDS: PANTOPRAZOLE SODIUM 40 MG VIAL IV (08:04)
[2023-09-12] MEDS: FUROSEMIDE 40 MG TABLET PO (08:04)
[2023-09-12] MEDS: ATORVASTATIN CALCIUM 10 MG TABLET PO (08:04)
[2023-09-12] MEDS: POTASSIUM CHLORIDE 10 MEQ ER TABLET PO (08:05)
[2023-09-12] MEDS: LISINOPRIL 20 MG TABLET PO (08:05)
[2023-09-12] MEDS: PREGABALIN 100 MG CAPSULE 300 MG PO ×2 (08:05→21:53)
[2023-09-12] MEDS: OSELTAMIVIR PHOSPHATE 75 MG CAPSULE PO ×2 (08:05→21:53)
[2023-09-12] MEDS: INSULIN ASPART 300 UNIT/3 ML PEN SUBQ ×4 (08:06→22:02)
[2023-09-12] MEDS: INSULIN DETEMIR 300 UNIT/3 ML INSULN.PEN 66 UNIT SQ ×2 (08:06→22:02)
[2023-09-12] MEDS: BENZONATATE 100 MG CAPSULE 200 MG PO (08:13)
--- NOTE | 2023-09-12 08:47 | P.PN_ITS ---
Progress Note: Subjective Subjective Interval history: Patient may be feeling a little bit better than previous day Exam Constitutional Vital Signs, click to edit/add: Last Vital Signs Temp 97.8 F 09/12/23 03:54 Pulse 79 09/12/23 08:00 Resp 11 L 09/12/23 07:25 BP 143/67 H 09/12/23 07:25 Pulse Ox 95 09/12/23 07:00 O2 Del Method Nasal Cannula 09/12/23 07:54 O2 Flow Rate 2 09/12/23 07:54 Documenting provider has reviewed patient's vital signs: yes Common normals: apparent distress (Mild, patient dyspnea) Chest Common normals: inspection of chest normal Respiratory Common normals: no retractions; abnormal respiratory effort (Mild conversational dyspnea) and not clear to ascultation bilaterally Auscultation: rhonchi (Throughout-May be some better air exchange) and wheezes (Due for breathing treatment) Cardio Common normals: regular rate and regular rhythm GI Common normals: Normal to inspection, nondistended, normoactive bowel sounds present (Morbidly obese) Progress Note: Objective Labs Labs: Short CBC 09/12/23 Range/Units 03:06 WBC 12.2 H (4.0-11.0) 10^3/uL Hgb 14.8 (12.0-16.0) g/dL Hct 48.9 H (36.0-48.0) % Plt Count 114 L (150-450) 10^3/uL BMP 09/12/23 03:06 Sodium 141 Potassium 4.5 Chloride 107 Carbon Dioxide 35.4 H BUN 22.0 H Creatinine 0.83 Glucose 186 H Calcium 8.9 Liver Function 09/12/23 Range/Units 03:06 Total Bilirubin 0.2 (0.2-1.0) mg/dL AST 20 (15-37) U/L ALT 27 (14-59) U/L Alkaline Phosphatase 51 (46-116) U/L Albumin 2.6 L (3.4-5.0) g/dL Progress Note: A&P Assessment and Plan (1) COPD exacerbation: Plan Acute hypoxia, respiratory distress, sinus tachycardia secondary to acute exacerbation of COPD secondary to influenza. Patient is improved, back down her baseline of 2 L of nasal cannula oxygen but at home she does not wear that all the time, her O2 saturation this morning was 89% on the 2 L. IPV treatments seem to be helping. Maintain dose until tomorrow. Try to get patient up and moving more. If improved tomorrow possible discharge. Thrombocytopenia-monitor daily likely related to viral syndrome as outlined above-improved IDDM-insulin sliding scale-cut back on steroids today, increased addm-zvvdqt-ltddw but will decrease steroids, increase sliding scale insulin Hypertension-continue with home medications, monitor daily GERD-continue with home medications-continue with medications Anxiety and depression-continue home medications Yeast vaginitis-add Diflucan Leukourea-check urine culture tomorrow culture should be back later today Xylsoqyfetmtdi-djuluznvtp-kqcivzia Acute exacerbation of COPD with significant hypoxia, unlikely to improve her pulmonary status within 48 hours, likely 1 more day, if she improves throughout the course of the day could be transferred out to medical surgical unit
--- NOTE | 2023-09-12 09:10 | SWNOTE1 ---
[facility] did speak to Rita again yesterday afternoon and pt had home oxygen thru them from August 2021 until November of 2021 and then they picked up equipment as she got better. TACO is not sure where her home oxygen is from at this time.
[2023-09-12] MEDS: FLUCONAZOLE 100 MG TABLET PO (09:13)
--- NOTE | 2023-09-12 10:01 | CM.NOTE ---
Rounds made with Dr. Desouza. Dr. Desouza explains lab results improving and now on oxygen as before (2L/NC). Will add medication for complaints of yeast infection.
--- NOTE | 2023-09-12 10:03 | CM.NOTE ---
Spoke with Mitzi regarding Home Services and she does not feel at this time she will need any services in the home.
[2023-09-12] MEDS: BUDESONIDE 0.5 MG/2 ML AMPULE NEB IH ×2 (10:28→22:56)
[2023-09-12 11:25] LABS: Glucometer 189 mg/dL (74-106)
--- NOTE | 2023-09-12 15:59 | SWNOTE1 ---
SW went back in to room to discuss home health. SW also let pt know SW is not sure where her oxygen is from. SW let her know [facility] voiced they picked up equipment in 2021, but pt voiced they never did. SW spoke with pt about home health. SW encouraged her to at least do a home health nurse for a short time since she was just re-admitted to hospital. 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 Pt then voiced she needed to use restroom. SW encouraged her to consider HH and SW to re-assess tomorrow.
[2023-09-12 16:11] LABS: Glucometer 203 mg/dL (74-106)
[2023-09-12] MEDS: SODIUM CHLORIDE 0.9% INHALATION 3 ML NEB 6 ML IH (17:36)
--- NOTE | 2023-09-12 20:29 | PC.NURSE ---
Pt had to be woken up while sitting up in recliner with eyes closed. Denies any complaints
[2023-09-12] MEDS: AMITRIPTYLINE HCL 25 MG TABLET PO (21:53)
[2023-09-12 22:10] LABS: Glucometer 221 mg/dL (74-106)
[2023-09-12] MEDS: ACETAMINOPHEN 500 MG TABLET 1000 MG PO (22:12)
[2023-09-12] MEDS: HYDROCODONE/ACET 5-325 MG TABLET 1 TAB PO (22:12)
[2023-09-13] VITALS (14 sets, daily range): BP systolic 139–179; BP diastolic 53–95; PULSE 58–101; RESP 5–28; TEMP 36.5; O2SAT 90–98
[2023-09-13] MEDS: PIPERACILLIN SODIUM/TAZOBACTAM 3.375 GM in 0.9 % SODIUM CHLORIDE 50 ML IV ×2 (02:00→09:00)
[2023-09-13] MEDS: METHYLPREDNISOLONE SOD SUCC PF 125 MG/2 ML VIAL 60 MG IVP (02:00)
[2023-09-13] MEDS: VANCOMYCIN HCL 1,750 MG in 0.9 % SODIUM CHLORIDE 500 ML 250 MG IV (04:14)
[2023-09-13 05:02] LABS: Basophils Percent Auto 0.1 % (0.2-2.0); Hematocrit 49.3 % (36.0-48.0); Hemoglobin 14.8 g/dL (12.0-16.0); Immature Granulocytes Abs Auto 0.08 10^3/uL (0.00-0.03); Immature Granulocytes Pct Auto 0.8 % (0.0-0.5); Lymphocytes Absolute Auto 1.3 10^3/uL (1.2-3.8); Lymphocytes Percent Auto 13.2 % (20.5-60.0); Mean Corpuscular Hemoglobin 28.7 pg (26.7-34.0); Mean Corpuscular Volume 95.7 fL (81.0-99.0); Mean Platelet Volume 13.3 fL (9.5-13.5); Monocytes Absolute Auto 0.4 10^3/uL (0.3-0.8); Monocytes Percent Auto 3.7 % (1.7-12.0); Neutrophils Absolute Auto 8.1 10^3/uL (1.4-6.5); Neutrophils Percent Auto 82.2 % (43.0-75.0); Platelet Count 111 10^3/uL (150-450); Red Blood Count 5.15 10^6/uL (4.20-5.40); Red Cell Distribution Width 14.5 % (11.0-15.0); White Blood Count 9.8 10^3/uL (4.0-11.0)
[2023-09-13] MEDS: IPRATROPIUM/ALBUTEROL SULFATE 3 ML AMPUL.NEB IH (05:17)
[2023-09-13 05:38] LABS: Alanine Aminotransferase 26 U/L (14-59); Albumin Globulin Ratio 0.6; Albumin Level 2.5 g/dL (3.4-5.0); Alkaline Phosphatase 47 U/L (46-116); Aspartate Amino Transferase 16 U/L (15-37); BUN Creatinine Ratio 35.4; Bilirubin Total 0.3 mg/dL (0.2-1.0); Calcium 8.8 mg/dL (8.5-10.1); Carbon Dioxide 31.4 mmol/L (21.0-32.0); Chloride 106 mmol/L (98-107); Estimated GFR (African America >60 (>=60); Estimated GFR (Non-African Ame >60 (>=60); Globulin 4.2 g/dL; Glucose 171 mg/dL (74-106); Magnesium 2.6 mg/dL (1.8-2.4); Potassium 4.4 mmol/L (3.5-5.1); Sodium 140 mmol/L (136-145); Total Protein 6.7 g/dL (6.4-8.2)
[2023-09-13 07:27] LABS: Glucometer 148 mg/dL (74-106)
[2023-09-13] MEDS: ASPIRIN 81 MG TABLET.DR PO (08:16)
[2023-09-13] MEDS: ATORVASTATIN CALCIUM 10 MG TABLET PO (08:16)
[2023-09-13] MEDS: CANAGLIFLOZIN 100 MG TABLET 300 MG PO (08:16)
[2023-09-13] MEDS: DULOXETINE HCL 60 MG CAPSULE.DR PO (08:16)
[2023-09-13] MEDS: PANTOPRAZOLE SODIUM 40 MG VIAL IV (08:16)
[2023-09-13] MEDS: POTASSIUM CHLORIDE 10 MEQ ER TABLET PO (08:16)
[2023-09-13] MEDS: OSELTAMIVIR PHOSPHATE 75 MG CAPSULE PO (08:17)
[2023-09-13] MEDS: HYDRALAZINE HCL 25 MG TABLET PO (08:17)
[2023-09-13] MEDS: LISINOPRIL 20 MG TABLET PO (08:17)
[2023-09-13] MEDS: PREGABALIN 100 MG CAPSULE 300 MG PO (08:17)
[2023-09-13] MEDS: FUROSEMIDE 40 MG TABLET PO (08:17)
[2023-09-13] MEDS: FLUCONAZOLE 100 MG TABLET PO (08:17)
[2023-09-13] MEDS: INSULIN DETEMIR 300 UNIT/3 ML INSULN.PEN 66 UNIT SQ (08:20)
[2023-09-13] MEDS: INSULIN ASPART 300 UNIT/3 ML PEN SUBQ (08:20)
--- NOTE | 2023-09-13 08:37 | P.DS_ITS ---
DS: Providers Provider Date of admission: 09/10/23 16:43 Primary care physician: Mckayla Blas NP Consults: 09/10/23 16:01 Occupational Therapy Eval and Treat Routine Reason for consultation: Only if needed for Rehab Has provider been notified: No Physical Therapy Eval and Treat Routine Reason for consultation: Eval and Treat Has provider been notified: No DS: Diagnosis Discharge Diagnosis (1) COPD exacerbation: Plan Acute hypoxia, respiratory distress, sinus tachycardia secondary to acute exacerbation of COPD secondary to influenza. Thrombocytopenia- IDDM Hypertension GERD Anxiety and depression Yeast vaginitis Leukourea Hypomagnesemia DS: Summary Hospital Course Hospital Course: Patient was seen and evaluated in the emergency room secondary to increasing shortness of breath. Found to have influenza, acute exacerbation of COPD, with acute hypoxia. Patient was initially on 6 L of nasal cannula she normally wears 2 L at home. Over the last the first 48 hours were able to wean her down to 2 L. She still has significant wheeze and rhonchi yesterday surgery kept an additional day for further treatment. We are able to wean her steroids. She is maintained on her 2 L even at at bedtime. At this point should be discharged home in improving condition. Medications see list. Follow-up with her PCP within the next week. Visit is already been scheduled. Time Spent with Patient Time attestation: Total time spent providing and/or coordinating discharge services: Exam Constitutional Vital Signs, click to edit/add: Last Vital Signs Temp 97.7 F 09/13/23 02:19 Pulse 88 09/13/23 08:00 Resp 28 H 09/13/23 08:00 BP 139/53 09/13/23 07:24 Pulse Ox 98 09/13/23 07:24 O2 Del Method Nasal Cannula 09/13/23 07:00 O2 Flow Rate 2 09/13/23 07:00 Documenting provider has reviewed patient's vital signs: yes Common normals: apparent distress (Mild, patient dyspnea) Chest Common normals: inspection of chest normal Respiratory Common normals: normal respiratory effort (Mild conversational dyspnea) and no retractions; not clear to ascultation bilaterally Auscultation: rhonchi (Persisting but much improved) and wheezes (Much improved, this is 2 hours after breathing treatment) Cardio Common normals: regular rate and regular rhythm GI Common normals: Normal to inspection, nondistended, normoactive bowel sounds present (Morbidly obese) DS: Data Data Completed and Pending Labs on day of discharge: Labs from last 24 hours 09/13/23 09/13/23 09/12/23 07:23 03:59 21:58 WBC 9.8 RBC 5.15 Hgb 14.8 Hct 49.3 H MCV 95.7 MCH 28.7 MCHC 30.0 RDW 14.5 Plt Count 111 L MPV 13.3 Neut % (Auto) 82.2 H Lymph % (Auto) 13.2 L [place] % (Auto) 3.7 Eos % (Auto) 0.0 L Baso % (Auto) 0.1 L Neut # (Auto) 8.1 H Lymph # (Auto) 1.3 [place] # (Auto) 0.4 Eos # (Auto) 0.0 Baso # (Auto) 0.0 Abs Immat Gran (auto) 0.08 H Imm/Tot Granulo (auto) 0.8 H Sodium 140 Potassium 4.4 Chloride 106 Carbon Dioxide 31.4 Anion Gap 7.0 BUN 28.0 H Creatinine 0.79 Est GFR ( Amer) >60 Est GFR (Non-Af Amer) >60 BUN/Creatinine Ratio 35.4 Glucose 171 H Calcium 8.8 Magnesium 2.6 H Total Bilirubin 0.3 AST 16 ALT 26 Alkaline Phosphatase 47 Total Protein 6.7 Albumin 2.5 L Globulin 4.2 Albumin/Globulin Ratio 0.6 POC Glucose 148 H 221 H 09/12/23 09/12/23 15:59 11:19 WBC RBC Hgb Hct MCV MCH MCHC RDW Plt Count MPV Neut % (Auto) Lymph % (Auto) [place] % (Auto) Eos % (Auto) Baso % (Auto) Neut # (Auto) Lymph # (Auto) [place] # (Auto) Eos # (Auto) Baso # (Auto) Abs Immat Gran (auto) Imm/Tot Granulo (auto) Sodium Potassium Chloride Carbon Dioxide Anion Gap BUN Creatinine Est GFR ( Amer) Est GFR (Non-Af Amer) BUN/Creatinine Ratio Glucose Calcium Magnesium Total Bilirubin AST ALT Alkaline Phosphatase Total Protein Albumin Globulin Albumin/Globulin Ratio POC Glucose 203 H 189 H Preliminary micro results at discharge 09/10/23 14:22 - Preliminary Blood NO GROWTH AT 36-48 HOURS. FINAL TO FOLLOW. 09/10/23 14:05 Blood Culture Result 1 - Preliminary Blood NO GROWTH AT 36-48 HOURS. FINAL TO FOLLOW. Discharge Plan Discharge Disposition: Home, Self-Care Condition: Good Discharge Medications: New fluconazole 100 mg Tablet 100 mg PO QD Qty: 7 0RF hydralazine 25 mg Tablet 25 mg PO BID Qty: 60 11RF oseltamivir 75 mg Capsule 75 mg PO BID Qty: 6 0RF Protocol: Tamiflu (1-12 yrs) Condition: Weight < 15kg Dose/Route: 30 mg Instruction: PO Condition: Weight 15-23 kg Dose/Route: 45 mg Instruction: PO Condition: Weight 24-40 kg Dose/Route: 60 mg Instruction: PO Condition: Weight > 41 kg Dose/Route: 75 mg Instruction: PO prednisone 10 mg tablet 50 mg PO DAILY Qty: 47 0RF Rx Instructions: 5/day for 3 days. 4/day for 3 days, 3/day for 3 days, 2/day for 3 days, 1/day for 3 days, 1/2 /day for 4 days amoxicillin-pot clavulanate 875-125 mg tablet 1 tab PO BID Qty: 14 0RF Continued hydrocodone-acetaminophen 5-325 mg tablet 1 tab PO TID PRN (Reason: pain) Qty: 90 0RF Rx Instructions: MUST LAST 30 DAYS acetaminophen 500 mg capsule 1,000 mg PO Q6H PRN (Reason: fever or pain) aspirin [Adult Aspirin Regimen] 81 mg tablet,delayed release (DR/EC) 81 mg PO DAILY amitriptyline 25 mg tablet 25 mg PO DAILY insulin glargine [Lantus U-100 Insulin] 100 unit/mL solution 58 unit subcut BID furosemide 40 mg tablet 40 mg PO DAILY lisinopril 20 mg tablet 20 mg PO DAILY pregabalin 300 mg capsule 300 mg PO Q12H insulin aspart U-100 [Novolog FlexPen U-100 Insulin] 100 unit/mL (3 mL) insulin pen 1 sliding scale dose subcut USEASDIRECTD budesonide-formoterol [Symbicort] 160-4.5 mcg/actuation HFA aerosol inhaler 2 inh inhalation BID Trulicity 3 mg/0.5 mL pen injector 3 mg subcut QWEEK omeprazole 20 mg capsule,delayed release(DR/EC) 20 mg PO DAILY duloxetine 60 mg capsule,delayed release(DR/EC) 60 mg PO BID Qty: 60 0RF dapagliflozin propanediol 10 mg tablet 10 mg PO .QD ergocalciferol (vitamin D2) 1,250 mcg (50,000 unit) capsule 50,000 unit PO QWEEK potassium chloride 10 mEq capsule, extended release 10 meq PO .QD simvastatin 10 mg tablet 10 mg PO QAM Discontinued levofloxacin 750 mg tablet 750 mg PO DAILY 10 Days Qty: 10 0RF Forms: Portal Instructions
--- NOTE | 2023-09-13 09:30 | CM.NOTE ---
Rounds made with Dr. Desouza. Plan for discharge today.
--- NOTE | 2023-09-13 09:31 | CM.NOTE ---
Reviewed 2nd Notice for Important Message for Medicare..no questions offered. Verbalizes understanding.
--- NOTE | 2023-09-13 10:52 | PT.DAILY ---
Physical Therapy Daily Note PT Daily Note/Assess Start: 09/13/23 10:48 Freq: Status: Active Protocol: Document 09/13/23 10:49 EDGARDO (Rec: 09/13/23 10:52 EDGARDO [id number]) Physical Therapy Daily Note/Assessment Time In/Time Out Time In 10:00 Time Out 10:10 Pain In Pain N/A Pain Out Pain N/A Subjective Subjective Pt sitting EOB upon arrival. reports being DC this afternoon to home but is agreeable to PT this morning. Therapeutic Exercise Time Therapeutic Exercise Minutes (minutes) 4 Therapeutic Exercise Units 0 Therapeutic Exercise Treatment Therapeutic Exercise Treatment Seated AP, LAQ, marches, and add squeezes 10x ea while sitting unsupported without LOB. Therapeutic Activity Time Therapeutic Activity Minutes (minutes) 4 Therapeutic Activity Units 1 Therapeutic Activity Treatment Chair Transfer Ability Standby Assistance Therapeutic Activity Comments SIt>stand SBA to RW. Assist for IV pole. Pt amb 5' to BS chair. Remains in BS chair with call light in reach. Denies any more activity at this time. Total Physical Therapy Time Total Therapy Minutes 8 Total Physical Therapy Units 1 Summary Daily Note Summary Steady with gait and sitting unsupported.
--- NOTE | 2023-09-13 10:55 | CM.NOTE ---
Reviewed discharge needs at home with Mitzi and refuses any additional services at this time.
--- NOTE | 2023-09-13 10:59 | SWNOTE1 ---
Pt is being discharged, case management checked with pt again in regards to home health, pt is refusing still at this time.
--- NOTE | 2023-09-13 11:53 | PC.NURSE ---
dc instructions given to pt, verbalized understanding. at bedside. pt took off oxygen, stated i don't wear this all the time. taken to exit via wheelchair, discharged to private vehicle.
--- NOTE | 2023-09-14 15:06 | CM.DCFOLLOWU ---
Person spoke with: Mitzi How are you feeling? Better How is your pain? No pain Did you understand your discharge instructions? Yes Do you have any questions about your discharge instructions? No Were you given any prescriptions at discharge? Yes Were you able to get your prescriptions filled? Yes Do you understand how to take your medications as ordered? Yes Do you have any questions about your follow up appointment and do you plan to keep your follow up appointment? No I will f/u with my doctor Is there anything else that you would like to discuss? No Questions/Comments/Concerns/Other:
== END 2023-09-13 11:45 | disposition home or self-care (01) | DRG 194 ==
LOC: ER 15:38 → ICU 16:45
PROVIDERS: Physician Assistant; Admitting Provider Family Medicine; Emergency Provider Emergency Medicine Emergency Medical Services; PCP Nurse Practitioner; Visit Provider Family Medicine
DX: J10.1 Influenza due to other identified influenza virus with other respiratory manifestations (principal); J44.1 Chronic obstructive pulmonary disease with (acute) exacerbation; Z68.43 Body mass index [BMI] 50.0-59.9, adult; K21.9 Gastro-esophageal reflux disease without esophagitis; R06.03 Acute respiratory distress; R09.02 Hypoxemia; D69.6 Thrombocytopenia, unspecified; I10 Essential (primary) hypertension; R00.0 Tachycardia, unspecified; F41.9 Anxiety disorder, unspecified; F32.A Depression, unspecified; B37.31 Acute candidiasis of vulva and vagina; E83.42 Hypomagnesemia; E11.9 Type 2 diabetes mellitus without complications; E78.00 Pure hypercholesterolemia, unspecified; E66.01 Morbid (severe) obesity due to excess calories; Z99.81 Dependence on supplemental oxygen; Z87.891 Personal history of nicotine dependence; Z79.82 Long term (current) use of aspirin; Z79.4 Long term (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; Z79.899 Other long term (current) drug therapy; Z90.49 Acquired absence of other specified parts of digestive tract; Z90.710 Acquired absence of both cervix and uterus; Z98.890 Other specified postprocedural states; Z20.822 Contact with and (suspected) exposure to COVID-19; Z89.429 Acquired absence of other toe(s), unspecified side
CPT/HCPCS: 0202U; 36415; 71045; 80053; 80202; 81001; 82800; 82948; 83605; 83735; 83880; 84145; 84484; 85025; 85610; 85652; 85730; 86140; 87040; 87070; 87086; 93005; 94640; 94667; 94668; 94761; 96365; 96366; 96367; 96368; 96375; 96376; 97161; 97165; 97530; 97535; 99285; J2930; J3370

== ENCOUNTER 2023-11-06 08:24 | Day surgery (SDC) | payer MEDICARE, OTHER, SELFPAY ==
--- OUTSIDE RECORDS SUMMARY | 2023-11-06 08:44 | XMS_ITS | CCD ---
Author Organization [facility] Care Team Providers Care Band Nailer Name Role Phone James Desouza Primary Care Provider [phone] JAMES DESUOZA Primary Care Unavailable SHENDGE, VITHAL Admitting Unavailable SHENDGE, VITHAL Attending Unavailable AICHHOLZ, MCKAYLA Primary Care Unavailable AICHHOLZ, MCKAYLA Referring Unavailable AICHRAVIZ, MCKAYLA J Primary Care Physician Tico, Stephanie Unavailable GAVIOTA VEGA Attending Unavailable GAVIOTA VEGA Attending Unavailable MANNIE, MCKAYLA Krystal Referring Unavailable Elbert VARGAS Attending Unavailable OLE RAMIREZ Attending Unavailable OLE RAMIREZ Consulting Unavailable AICHHOLZ, CLIENT MANAGER LARGE LAW MCKAYLA Primary Care Unavailable OLE RAMIREZ Admitting Unavailable ANTONY SHRESTHA Consulting Unavailable ALONDRA ., UMBERTO Admitting Unavailable ALONDRA .UMBERTO Attending Unavailable AICHHOLZ, CLIENT MANAGER LARGE LAW MCKAYLA Primary Care Unavailable AFSANEH Loera, DR BOLANOS Consulting Unavailable MARYANNE POWER Consulting Unavailable GLENN KERR Consulting Unavailable YOMAIRA KERR Consulting Unavailable HATTIE GOFF Consulting Unavailable ALONDRA .UMBERTO Consulting Unavailable TICO, STEPHANIE Attending Unavailable TICO, STEPHANIE Consulting Unavailable AICHHOLZ, CLIENT MANAGER LARGE LAW MCKAYLA Primary Care Unavailable TICO, STEPHANIE Admitting Unavailable REGLA Loera, DR DUMONT Admitting Unavailable AICHHOLZ, CLIENT MANAGER LARGE LAW MCKAYLA Primary Care Unavailable REGLA Loera, DR DUMONT Attending Unavailable REGLA Loera, DR DUMONT Consulting Unavailable COLLIN HUERTAS Consulting Unavailable CECILIA KAUFMAN Admitting Unavailable CECILIA KAUFMAN Attending Unavailable AICHHOLZ, CLIENT MANAGER LARGE LAW MCKAYLA Primary Care Unavailable RAFAEL GONGORA Attending Unavailable RAFAEL GONGORA Admitting Unavailable AICHHOLZ, CLIENT MANAGER LARGE LAW MCKAYLA Primary Care Unavailable AICHHOLZ, CLIENT MANAGER LARGE LAW MCKAYLA Admitting Unavailable AICHHOLZ, CLIENT MANAGER LARGE LAW MCKAYLA Primary Care Unavailable AICHHOLZ, CLIENT MANAGER LARGE LAW MCKAYLA Attending Unavailable AICHHOLZ, CLIENT MANAGER LARGE LAW MCKAYLA Consulting Unavailable LAKSHMIPATHY ., NARENDRANATH Attending Anette vailable LAKSHMIPATHY ., NARENDRANATH Consulting Anette vailable LAKSHMIPATHY ., NARENDRANATH Admitting Anette vailable AICHHOLZ, CLIENT MANAGER LARGE LAW MCKAYLA Primary Care Unavailable VALENZUELA ., GIL Consulting Unavailable MORTENSEN ., DR CHAPARRO Aguillon Attending Unavailable MORTENSEN ., DR CHAPARRO Aguillon Admitting Unavailable AICHHOLZ, CLIENT MANAGER LARGE LAW MCKAYLA Primary Care Unavailable VALENZUELA ., GIL Consulting Unavailable MORTENSEN ., DR CHAPARRO Aguillon Admitting Unavailable AICHHOLZ, CLIENT MANAGER LARGE LAW MCKAYLA Primary Care Unavailable MORTENSEN ., DR CHAPARRO Aguillon Attending Unavailable HALKER ., SUBHASH Consulting Unavailable LAKSHMIPATHY ., NARENDRANATH Admitting Anette vailable LAKSHMIPATHY ., NARENDRANATH Attending Anette vailable AICHHOLZ, CLIENT MANAGER LARGE LAW MCKAYLA Primary Care Unavailable MORTENSEN ., DR CHAPARRO Aguillon Attending Unavailable MORTENSEN ., DR CHAPARRO Aguillon Admitting Unavailable VALENZUELA ., GIL Consulting Unavailable AICHHOLZ, CLIENT MANAGER LARGE LAW MCKAYLA Primary Care Unavailable VALENZUELA ., GIL Consulting Unavailable MORTENSEN ., DR CHAPARRO Aguillon Attending Unavailable MORTENSEN ., DR CHAPARRO Aguillon Admitting Unavailable AICHHOLZ, CLIENT MANAGER LARGE LAW MCKAYLA Primary Care Unavailable HATTIE BRODERICK Attending Unavailable HATTIE BRODERICK Admitting Unavailable AICHHOLZ, CLIENT MANAGER LARGE LAW MCKAYLA Primary Care Unavailable AICHHOLZ, CLIENT MANAGER LARGE LAW MCKAYLA Admitting Unavailable AICHHOLZ, CLIENT MANAGER LARGE LAW MCKAYLA Consulting Unavailable AICHHOLZ, CLIENT MANAGER LARGE LAW MCKAYLA Primary Care Unavailable AICHHOLZ, CLIENT MANAGER LARGE LAW MCKAYLA Attending Unavailable AICHHOLZ, CLIENT MANAGER LARGE LAW MCKAYLA Primary Care Unavailable MISC, DR LESLIE Admitting Unavailable MISC, DR LESLIE Attending Unavailable MISC, DR LESLIE Consulting Unavailable DIAB ., MARIANO Admitting Unavailable DIAB ., MARIANO Attending Unavailable DIAB ., MARIANO Consulting Unavailable AICHHOLZ, CLIENT MANAGER LARGE LAW MCKAYLA Primary Care Unavailable RICCO PICKARD Consulting Unavailable AICHHOLZ, CLIENT MANAGER LARGE LAW MCKAYLA Admitting Unavailable AICHHOLZ, CLIENT MANAGER LARGE LAW MCKAYLA Primary Care Unavailable AICHHOLZ, CLIENT MANAGER LARGE LAW MCKAYLA Attending Unavailable AICHHOLZ, CLIENT MANAGER LARGE LAW MCKAYLA Consulting Unavailable DR PATRICIA IVAN Consulting Unavailable CECILIA KAUFMAN Attending Unavailable CECILIA KAUFMAN Admitting Unavailable DR PATRICIA IVAN Consulting Unavailable AICHHOLZ, CLIENT MANAGER LARGE LAW MCKAYLA Primary Care Unavailable CECILIA KAUFMAN Consulting Unavailable FESTUS ., DR CHAPARRO Aguillon Attending Unavailable FESTUS ., DR CHAPARRO Aguillon Consulting Unavailable FESTUS ., DR CHAPARRO Aguillon Admitting Unavailable AICHHOLZ, CLIENT MANAGER LARGE LAW MCKAYLA Primary Care Unavailable HATTIE BRODERICK Attending Unavailable HATTIE BRODERICK Consulting Unavailable HATTIE BRDOERICK Admitting Unavailable AICHHOLZ, CLIENT MANAGER LARGE LAW MCKAYLA Primary Care Unavailable HATTIE BAUTISTA Consulting Unavailable AICHHOLZ, CLIENT MANAGER LARGE LAW MCKAYLA Admitting Unavailable AICHHOLZ, CLIENT MANAGER LARGE LAW MCKAYLA Attending Unavailable AICHHOLZ, CLIENT MANAGER LARGE LAW MCKAYLA Consulting Unavailable AICHHOLZ, CLIENT MANAGER LARGE LAW MCKAYLA Primary Care Unavailable Ty Amin MD Primary Care Provider [phone] AICHOLZ, MCKAYLA Attending Unavailable AICHHOLZ, MCKAYLA Attending Unavailable AICHHOLZ, MCKAYLA Attending Unavailable Allergies Allergy Classification Reported Allergen(s) Allergy Type Date of Onset Reaction(s) Facility (1 source) No Known Medication Allergies; 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: [No Known Medication Allergies] Propensity to adverse reactions (disorder) [facility] Medications Current Medications Medication Drug Class(es) Dates Sig (Normalized) Sig (Original) acetaminophen 325 mg / HYDROcodone bitartrate 5 mg oral tablet (6 sources) Opioid Agonist Start: 02-06-2022 acetaminophen-hydr ocodone 325 mg-5 mg oral tablet Refill(s) 0 Start Date: 02/06/22 Status: Ordered HYDROcodone-acet aminophen (Anna Maria) 5-325 MG tablet 1 tablet 3 (three) times a day as needed for severe pain. 0 Active take 1 tablet by [facility] twice daily as needed Anna Maria 5-325 MG 1 tablet as needed Orally [...] every week ergocalciferol (Vitamin D-2) 1.25 MG (20207 UT) capsule Take 1.25 mg by mouth [...] extended release oral capsule (7 sources) Start: 2 End: take 1 capsule by mouth in [...] term care (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 therapy; 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: [OTH SUPERVISOR NUT PROCESSING CURRENT DRUG THERAPY] Onset: 12-05-2022 Episodic Other aftercare (1 source) [facility] (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; 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: [PRISON CURRENT USE OF ASPIRIN] Onset: 12-05-2022 Episodic Other aftercare (1 source) [employer] (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; 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: [SUPERVISOR NUT PROCESSING CURRENT USE OF INSULIN] Onset: 12-05-2022 Episodic [...] ocumentation in Social History. Unclassified (1 source) SUPERVISOR [employer] PROCESSING INJECT NONINSULN ANTIDIAB; 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: [PRISON INJECT NONINSULN ANTIDIAB] Onset: 12-05-2022 Unclassified (3 [...] 12-06-2022 BASO # 0.0 103/ul Normal 0.0-0.1 [facility] Comment on above: Performed By: #### C BC #### [facility] [address] [place] [address] Dr. Ashlie Hills Basophils/100 WBC (Bld) 0.1 % Critically low 0.2-2.0 [facility] Comment on above: Performed By: #### C BC #### [facility] [address] [place] [address] Dr. Ashlie Hills EO # 0.0 103/ul Normal 0.0-0.7 [facility] Comment on above: Performed By: #### C BC #### [facility] [address] [place] [address] Dr. Ashlie Hills Eosinophils/100 WBC (Bld) 0.0 % Critically low 0.9-7.0 [facility] Comment on above: Performed By: #### C BC #### [facility] [address] [address] [address] Ashlie Hills Erythrocyte distribution width (RBC) [Ratio] 14.9 % Normal 11.0-15.0 [facility] Comment on above: Performed By: #### C BC #### [facility] [address] [place] [address] Dr. Ashlie Hills Hematocrit (Bld) [Volume fraction] 46.2 % Normal 36.0-48.0 [facility] Comment on above: Performed By: #### C BC #### [facility] [address] [place] [address] Dr. Ashlie Hills Hemoglobin (Bld) [Mass/Vol] 14.7 g/dL Normal 12.0-16.0 [facility] Comment on above: Performed By: #### C BC #### [facility] [address] [place] [address] Dr. Ashlie Hills IG # 0.06 10e3/ul Critically high 0.00-0.03 [facility] Comment on above: Performed By: #### C BC #### [facility] [address] [place] [address] Dr. Ashlie Hills IG % 0.4 % Normal 0.0-0.5 [facility] Comment on above: Performed By: #### C BC #### [facility] [address] [place] [address] Dr. Ashlie Hills LYMPH # 1.3 103/ul Normal 1.2-3.8 [facility] Comment on above: Performed By: #### C BC #### [facility] [address] [place] [address] Dr. Ashlie Hills Lymphocytes/100 WBC (Bld) 9.4 % Critically low 20.5-60.0 [facility] Comment on above: Performed By: #### C BC #### [facility] [address] [place] [address] Dr. Ashlie Hills MANUAL DIFF REQ NO Normal [facility] Comment on above: Performed By: #### C BC #### [facility] [address] [place] [address] Dr. Ashlie Hills MCH (RBC) [Entitic mass] 28.4 pg Normal 26.7-34.0 [facility] Comment on above: Performed By: #### C BC #### [facility] [address] [place] [address] Dr. Ashlie Hills MCHC (RBC) [Mass/Vol] 31.8 g/dL Normal 29.9-35.2 [facility] Comment on above: Performed By: #### C BC #### [facility] [address] [place] [address] Dr. Ashlie Hills MCV (RBC) [Entitic vol] 89.4 fL Normal 81.0-99.0 [facility] Comment on above: Performed By: #### C BC #### [facility] [address] [address] [address] Ashlie Hills MONO # 0.5 103/ul Normal 0.3-0.8 [facility] Comment on above: Performed By: #### C BC #### [facility] [address] [address] [address] Ashlie Hills Monocytes/100 WBC (Bld) 3.4 % Normal 1.7-12.0 [facility] Comment on above: Performed By: #### C BC #### [facility] [address] [place] [address] Dr. Ashlie Hills NEUT # 11.8 103/ul Critically high 1.4-6.5 [facility] Comment on above: Performed By: #### C BC #### [facility] [address] [place] [address] Dr. Ashlie Hills Neutrophils/100 WBC (Bld) 86.7 % Critically high 43.0-75.0 [facility] Comment on above: Performed By: #### C BC #### [facility] [address] [place] [address] Dr. Ashlie Hills Platelet mean volume (Bld) [Entitic vol] 12.6 fL Normal 9.5-13.5 [facility] Comment on above: Performed By: #### C BC #### [facility] [address] [place] [address] Dr. Ashlie Hills PLT 133 103/ul Critically low 150-450 [facility] Comment on above: Performed By: #### C BC #### [facility] [address] [place] [address] Dr. Ashlie Hills RBC 5.17 106/ul Normal 4.20-5.40 [facility] Comment on above: Performed By: #### C BC #### [facility] [address] [place] [address] Dr. Ashlie Hills WBC 13.6 103/ul Critically high 4.0-11.0 [facility] Comment on above: Performed By: #### C BC #### [facility] [address] [place], [place] [id number] Dr. Ashlie Hills MAGNESIUMon 12-06-2022 Magnesium [Mass/Vol] 2.2 mg/dL Normal 1.8-2.4 [facility] Comment on above: Performed By: #### I NFLUAB #### [facility] [address] [place] [address] Dr. Ashlie Hills POINT OF CARE GLUCOSEon 11-08 Glucose [Mass/Vol] 340 mg/dL Critically high [facility] Comment on above: Performed By: #### P OCGLUC #### [facility] [address] [address] [address] Ashlie Hills Glucose [Mass/Vol] 276 mg/dL Critically high [address] [place] [address] Comment on above: Performed By: #### C BC #### [facility] [address] [place] [address] Dr. Ashlie Hills Glucose [Mass/Vol] 333 mg/dL Critically high [address] [place] [address] Comment on above: Performed By: #### C BC #### [facility] [address] [place] [address] Dr. Ashlie Hills PROF CHEM 8 (BAS METB)on Anion gap [Moles/Vol] 10.9 mmol/L Normal [facility] Comment on above: Performed By: #### I NFLUAB #### [facility] [address] [place] [address] Dr. Ashlie Hills Calcium [Mass/Vol] 9.3 mg/dL Normal 8.5-10.1 [facility] Comment on above: Performed By: #### I NFLUAB #### [facility] [address] [place] [address] Dr. Ashlie Hills Chloride [Moles/Vol] 103 mmol/L Normal 98-107 [facility] Comment on above: Performed By: #### I NFLUAB #### [facility] [address] [place] [address] Dr. Ashlie Hills CO2 [Moles/Vol] 31.2 mmol/L Normal 21.0-32.0 [facility] Comment on above: Performed By: #### I NFLUAB #### [facility] [address] [address] [address] Ashlie Hills Creatinine [Mass/Vol] 0.96 mg/dL Normal 0.55-1.02 [facility] Comment on above: Performed By: #### I NFLUAB #### [facility] [address] [address] [address] Ashlie Hills EGFR-AF FIJIAN >60 Normal >=60 [facility] Comment on above: Performed By: #### I NFLUAB #### [facility] [address] [address] [address] Ashlie Hills EGFR-NON AF FIJIAN >60 Normal >=60 [facility] Comment on above: Performed By: #### I NFLUAB #### [facility] [address] [address] [address] Ashlie Hills Glucose [Mass/Vol] 288 mg/dL Critically high 74-106 [facility] Comment on above: Performed By: #### I NFLUAB #### [facility] [address] [address] [address] Ashlie Hills Potassium [Moles/Vol] 5.1 mmol/L Normal 3.5-5.1 [facility] Comment on above: Performed By: #### I NFLUAB #### [facility] [address] [address] [address] Ashlie Hills Sodium [Moles/Vol] 140 mmol/L Normal 136-145 [facility] Comment on above: Performed By: #### I NFLUAB #### [facility] [address] [address] [address] Ashlie Hills Urea nitrogen [Mass/Vol] 30.0 mg/dL Critically high 7.0-18.0 [facility] Comment on above: Performed By: #### I NFLUAB #### [facility] [address] [address] [address] Ashlie Hills Urea nitrogen/Creatinine [Mass ratio] 31.2 mg/mg Normal [facility] Comment on above: Performed By: #### I NFLUAB #### [facility] [address] [address] [address] Ashlie Hills CBC AUTO DIFFon 12-05-2022 BASO # 0.0 103/ul Normal 0.0-0.1 [facility] Comment on above: Performed By: #### C BC #### [facility] [address] [address] [address] Ashlie Hills Basophils/100 WBC (Bld) 0.4 % Normal 0.2-2.0 [facility] Comment on above: Performed By: #### C BC #### [facility] [address] [address] [address] Ashlie Hills EO # 0.0 103/ul Normal 0.0-0.7 [facility] Comment on above: Performed By: #### C BC #### [facility] [address] [place] [address] Dr. Ashlie Hills Eosinophils/100 WBC (Bld) 0.0 % Critically low 0.9-7.0 [facility] Comment on above: Performed By: #### C BC #### [facility] [address] [address] [address] Ashlie Hills Erythrocyte distribution width (RBC) [Ratio] 14.8 % Normal 11.0-15.0 [facility] Comment on above: Performed By: #### C BC #### [facility] [address] [place] [address] Dr. Ashlie Hills Hematocrit (Bld) [Volume fraction] 49.9 % Critically high 36.0-48.0 [facility] Comment on above: Performed By: #### C BC #### [facility] [address] [address] [address] Ashlie Hills Hemoglobin (Bld) [Mass/Vol] 15.7 g/dL Normal 12.0-16.0 [facility] Comment on above: Performed By: #### C BC #### [facility] [address] [address] [address] Ashlie Hills IG # 0.04 10e3/ul Critically high 0.00-0.03 [facility] Comment on above: Performed By: #### C BC #### [facility] [address] [address] [address] Ashlie Hills IG % 0.5 % Normal 0.0-0.5 [facility] Comment on above: Performed By: #### C BC #### [facility] [address] [place] [address] Dr. Ashlie Hills LYMPH # 1.1 103/ul Critically low 1.2-3.8 [facility] Comment on above: Performed By: #### C BC #### [facility] [address] [place] [address] Dr. Ashlie Hills Lymphocytes/100 WBC (Bld) 12.7 % Critically low 20.5-60.0 [facility] Comment on above: Performed By: #### C BC #### [facility] [address] [place] [address] Dr. Ashlie Hills MANUAL DIFF REQ NO Normal [facility] Comment on above: Performed By: #### C BC #### [facility] [address] [place] [address] Dr. Ashlie Hills MCH (RBC) [Entitic mass] 28.1 pg Normal 26.7-34.0 [facility] Comment on above: Performed By: #### C BC #### [facility] [address] [place] [address] Dr. Ashlie Hills MCHC (RBC) [Mass/Vol] 31.5 g/dL Normal 29.9-35.2 [facility] Comment on above: Performed By: #### C BC #### [facility] [address] [place] [address] Dr. Ashlie Hills MCV (RBC) [Entitic vol] 89.3 fL Normal 81.0-99.0 [facility] Comment on above: Performed By: #### C BC #### [facility] [address] [place] [address] Dr. Ashlie Hills MONO # 0.1 103/ul Critically low 0.3-0.8 [facility] Comment on above: Performed By: #### C BC #### [facility] [address] [address] [address] Ashlie Hills Monocytes/100 WBC (Bld) 1.3 % Critically low 1.7-12.0 [facility] Comment on above: Performed By: #### C BC #### [facility] [address] [address] [address] Ashlie Hills NEUT # 7.2 103/ul Critically high 1.4-6.5 [facility] Comment on above: Performed By: #### C BC #### [facility] [address] [address] [address] Ashlie Hills Neutrophils/100 WBC (Bld) 85.1 % Critically high 43.0-75.0 [facility] Comment on above: Performed By: #### C BC #### [facility] [address] [address] [address] Ashlie Hills Platelet mean volume (Bld) [Entitic vol] 12.2 fL Normal 9.5-13.5 [facility] Comment on above: Performed By: #### C BC #### [facility] [address] [address] [address] Ashlie Hills PLT 116 103/ul Critically low 150-450 [facility] Comment on above: Performed By: #### C BC #### [facility] [address] [address] [address] Ashlie Hills RBC 5.59 106/ul Critically high 4.20-5.40 [facility] Comment on above: Performed By: #### C BC #### [facility] [address] [address] [address] Ashlie Hills WBC 8.5 103/ul Normal 4.0-11.0 [facility] Comment on above: Performed By: #### C BC #### [facility] [address] [address] [address] Ashlie Hills CTA CHEST WO W [...] by: HATTIE GOFF Date: 2022-12-05 01:52 Normal [facility] MAGNESIUMon 12-05-2022 Magnesium [Mass/Vol] 2.1 mg/dL Normal 1.8-2.4 [facility] Comment on above: Performed By: #### P OCGLUC #### [facility] [address] [address] [address] Ashlie Hills POINT OF CARE GLUCOSEon 11-08 Glucose [Mass/Vol] 293 mg/dL Critically high 74-106 [facility] Comment on above: Performed By: #### P OCGLUC #### [facility] [address] [address] [address] Ashlie Hills Glucose [Mass/Vol] 269 mg/dL Critically high 74-106 [facility] Comment on above: Performed By: #### P OCGLUC #### [facility] [address] [address] [address] Ashlie Hills Glucose [Mass/Vol] 223 mg/dL Critically high 74-106 [facility] Comment on above: Performed By: #### C VDAGS #### [facility] [address] [address] [address] Ashlie Hills PROF CHEM 8 (BAS METB)on Anion gap [Moles/Vol] 11.6 mmol/L Normal [facility] Comment on above: Performed By: #### P OCGLUC #### [facility] [address] [address] [address] Ashlie Hills Calcium [Mass/Vol] 9.2 mg/dL Normal 8.5-10.1 [facility] Comment on above: Performed By: #### P OCGLUC #### [facility] [address] [address] [address] Ashlie Hills Chloride [Moles/Vol] 102 mmol/L Normal 98-107 [facility] Comment on above: Performed By: #### P OCGLUC #### [facility] [address] [address] [address] Ashlie Hills CO2 [Moles/Vol] 28.7 mmol/L Normal 21.0-32.0 [facility] Comment on above: Performed By: #### P OCGLUC #### [facility] [address] [address] [address] Ashlie Hills Creatinine [Mass/Vol] 1.04 mg/dL Critically high 0.55-1.02 [facility] Comment on above: Performed By: #### P OCGLUC #### [facility] [address] [address] [address] Ashlie Hills EGFR-AF FIJIAN >60 Normal >=60 [facility] Comment on above: Performed By: #### P OCGLUC #### [facility] [address] [address] [address] Ashlie Hills EGFR-NON AF FIJIAN 56 mL/min/1.73m2 Critically low >=60 [facility] Comment on above: Performed By: #### P OCGLUC #### [facility] [address] [address] [address] Ashlie Hills Glucose [Mass/Vol] 231 mg/dL Critically high 74-106 [facility] Comment on above: Performed By: #### P OCGLUC #### [facility] [address] [address] [address] Ashlie Hills Potassium [Moles/Vol] 4.3 mmol/L Normal 3.5-5.1 [facility] Comment on above: Performed By: #### P OCGLUC #### [facility] [address] [address] [address] Ashlie Hills Sodium [Moles/Vol] 138 mmol/L Normal 136-145 [facility] Comment on above: Performed By: #### P OCGLUC #### [facility] [address] [address] [address] Ashlie Hills Urea nitrogen [Mass/Vol] 17.0 mg/dL Normal 7.0-18.0 [facility] Comment on above: Performed By: #### P OCGLUC #### [facility] [address] [address] [address] Ashlie Hills Urea nitrogen/Creatinine [Mass ratio] 16.3 mg/mg Normal [facility] Comment on above: Performed By: #### P OCGLUC #### [facility] [address] [address] [address] Ashlie Hills RESPIRATORY PANEL PLUSon Adenovirus Not detected Normal NOT DETECTED [facility] Comment on above: Performed By: #### C VDAGS #### [facility] [address] [address] [address] Ashlie Hills B. Parapertusis Not detected Normal NOT DETECTED [facility] Comment on above: Performed By: #### C VDAGS #### [facility] [address] [address] [address] Ashlie Hills B. Pertussis Not detected Normal NOT DETECTED [facility] Comment on above: Performed By: #### C VDAGS #### [facility] [address] [place] [address] Dr. Ashlie Hills Chlamydia Pneumoniae Not detected Normal NOT DETECTED [facility] Comment on above: Performed By: #### C VDAGS #### [facility] [address] [address] [address] Ashlie Hills Coronavirus 229E Not detected Normal NOT DETECTED [facility] Comment on above: Performed By: #### C VDAGS #### [facility] [address] [place] [address] Dr. Ashlie Hills Coronavirus HKU1 Not detected Normal NOT DETECTED [facility] Comment on above: Performed By: #### C VDAGS #### [facility] [address] [place] [address] Dr. Ashlie Hills Coronavirus NL63 Not detected Normal NOT DETECTED [facility] Comment on above: Performed By: #### C VDAGS #### [facility] [address] [place] [address] Dr. Ashlie Hills Coronavirus OC43 Not detected Normal NOT DETECTED [facility] Comment on above: Performed By: #### C VDAGS #### [facility] [address] [place] [address] Dr. Ashlie Hills Influenza A H1 Not detected Normal NOT DETECTED The [facility] Comment on above: Performed By: #### C VDAGS #### [facility] [address] [place] [address] Dr. Ashlie Hills Influenza A H1 2009 Not detected Normal NOT DETECTED [facility] Comment on above: Performed By: #### C VDAGS #### [facility] [address] [place] [address] Dr. Ashlie Hills Influenza A H3 Not detected Normal NOT DETECTED [facility] Comment on above: Performed By: #### C VDAGS #### [facility] [address] [place] [address] Dr. Ashlie Hills Influenza B Not detected Normal NOT DETECTED [facility] Comment on above: Performed By: #### C VDAGS #### [facility] [address] [place] [address] Dr. Ashlie Hills Metapneumovirus Not detected Normal NOT DETECTED [facility] Comment on above: Performed By: #### C VDAGS #### [facility] [address] [address] [address] Ashlie Hills Mycoplas. Pneumoniae Not detected Normal NOT DETECTED [facility] Comment on above: Performed By: #### C VDAGS #### [facility] [address] [address] [address] Ashlie Hills Parainfluenza 1 Not detected Normal NOT DETECTED [facility] Comment on above: Performed By: #### C VDAGS #### [facility] [address] [address] [address] Ashlie Hills Parainfluenza 2 Not detected Normal NOT DETECTED [facility] Comment on above: Performed By: #### C VDAGS #### [facility] [address] [place] [address] Dr. Ashlie Hills Parainfluenza 3 Detected Abnormal NOT DETECTED [facility] Comment on above: Performed By: #### C VDAGS #### [facility] [address] [place] [address] Dr. Ashlie Hills Parainfluenza 4 Not detected Normal NOT DETECTED [facility] Comment on above: Performed By: #### C VDAGS #### [facility] [address] [place] [address] Dr. Ashlie Hills Rhino/Enterovirus Not detected Normal NOT DETECTED [facility] Comment on above: Performed By: #### C VDAGS #### [facility] [address] [place] [address] Dr. Ashlie Hills RP2 Header 1 RESPIRATORY PANEL: VIRUSES Normal [facility] Comment on above: Performed By: #### C VDAGS #### [facility] [address] [place] [address] Dr. Ashlie Hills RP2 Header 2 RESPIRATORY PANEL: BACTERIA Normal [facility] Comment on above: Performed By: #### C VDAGS #### [facility] [address] [place] [address] Dr. Ashlie Hills RSV Not detected Normal NOT DETECTED [facility] Comment on above: Performed By: #### C VDAGS #### [facility] [address] [place] [address] Dr. Ashlie Hills SARS-CoV-2 (COVID-19) RNA MADDY+probe Ql (Unsp spec) Not detected Normal NOT DETECTED [facility] Comment on above: Performed By: #### C VDAGS #### [facility] [address] [place] [address] Dr. Ashlie Hills XR CHEST 1 Von [...] by: MARYANNE POWER Date: 2022-12-04 22:23 Normal [facility] MODE ROOM AIR Normal [facility] Comment on above: Performed By: #### C BC #### [facility] [address] [place] [address] Dr. Ashlie Hills ALLENS TEST Positive Normal [facility] Comment on above: Performed By: #### C BC #### [facility] [address] [place] [address] Dr. Ashlie Hills Base excess Calc (Bld) [Moles/Vol] 5.4 mmol/L Critically high -2.0-2.0 [facility] Comment on above: Performed By: #### C BC #### [facility] [address] [place] [address] Dr. Ashlie Hills BIPAP PRESSURE Normal [facility] Comment on above: Performed By: #### C BC #### [facility] [address] [place] [address] Dr. Ashlie Hills CPAP Normal [facility] Comment on above: Performed By: #### C BC #### [facility] [address] [address] [address] Ashlie Hills FIO2 [facility] Comment on above: Performed By: #### C BC #### [facility] [address] [place] [address] Dr. Ashlie Hills HCO3 (Bld) [Moles/Vol] 30.8 mmol/L Critically high 22.0-26.0 [facility] Comment on above: Performed By: #### C BC #### [facility] [address] [place] [address] Dr. Ashlie Hills LPM [facility] Comment on above: Performed By: #### C BC #### [facility] [address] [place] [address] Dr. Ashlie Hills MINUTE VOLUME Normal [facility] Comment on above: Performed By: #### C BC #### [facility] [address] [place] [address] Dr. Ashlie Hills Oxygen (Bld) [Partial pressure] 46.3 mm[Hg] Critically low 80.0-100.0 [facility] Comment on above: Performed By: #### C BC #### [facility] [address] [place] [address] Dr. Ashlie Hills Oxygen saturation in Blood 83.9 % Critically low 95.0-100.0 [facility] Comment on above: Performed By: #### C BC #### [facility] [address] [place] [address] Dr. Ashlie Hills PCO2 54.2 mmHg Critically high 35.0-45.0 [facility] Comment on above: Performed By: #### C BC #### [facility] [address] [place] [address] Dr. Ashlie Hills PEEP [facility] Comment on above: Performed By: #### C BC #### [facility] [address] [place] [address] Dr. Ashlie Hills pH (Bld) 7.363 [pH] Normal 7.350-7.450 [facility] Comment on above: Performed By: #### C BC #### [facility] [address] [place] [address] Dr. Ashlie Hills [facility] Comment on above: Performed By: #### C BC #### [facility] [address] [place] [address] Dr. Ashlie Hills [facility] Comment on above: Performed By: #### C BC #### [facility] [address] [place] [address] Dr. Ashlie Hills PUNCTURE SITE LR [facility] Comment on above: Performed By: #### C BC #### [facility] [address] [place] [address] Dr. Ashlie Hills [facility] Comment on above: Performed By: #### C BC #### [facility] [address] [place] [address] Dr. Ashlie Hills VENT MODE [facility] Comment on above: Performed By: #### C BC #### [facility] [address] [place] [address] Dr. Ashlie Hills [facility] Comment on above: Performed By: #### C BC #### [facility] [address] [place] [address] Dr. Ashlie Hills BNPon 12-04-2022 Natriuretic peptide B (Bld) [Mass/Vol] 76.0 pg/mL Normal <=900.0 [facility] Comment on above: Performed By: #### P OCGLUC #### [facility] [address] [place] [address] Dr. Ashlie Hills CBC AUTO DIFFon 12-04-2022 BASO # 0.1 103/ul Normal 0.0-0.1 [facility] Comment on above: Performed By: #### C BC #### [facility] [address] [place] [address] Dr. Ashlie Hills Basophils/100 WBC (Bld) 0.6 % Normal 0.2-2.0 [facility] Comment on above: Performed By: #### C BC #### [facility] [address] [place] [address] Dr. Ashlie Hills EO # 0.2 103/ul Normal 0.0-0.7 [facility] Comment on above: Performed By: #### C BC #### [facility] [address] [place] [address] Dr. Ashlie Hills Eosinophils/100 WBC (Bld) 1.9 % Normal 0.9-7.0 [facility] Comment on above: Performed By: #### C BC #### [facility] [address] [place] [address] Dr. Ashlie Hills Erythrocyte distribution width (RBC) [Ratio] 15.0 % Normal 11.0-15.0 [facility] Comment on above: Performed By: #### C BC #### [facility] [address] [place] [address] Dr. Ashlie Hills Hematocrit (Bld) [Volume fraction] 49.1 % Critically high 36.0-48.0 [facility] Comment on above: Performed By: #### C BC #### [facility] [address] [place] [address] Dr. Ashlie Hills Hemoglobin (Bld) [Mass/Vol] 15.6 g/dL Normal 12.0-16.0 [facility] Comment on above: Performed By: #### C BC #### [facility] [address] [place] [address] Dr. Ashlie Hills IG # 0.02 10e3/ul Normal 0.00-0.03 [facility] Comment on above: Performed By: #### C BC #### [facility] [address] [place] [address] Dr. Ashlie Hills IG % 0.2 % Normal 0.0-0.5 [facility] Comment on above: Performed By: #### C BC #### [facility] [address] [place] [address] Dr. Ashlie Hills LYMPH # 2.8 103/ul Normal 1.2-3.8 [facility] Comment on above: Performed By: #### C BC #### [facility] [address] [place] [address] Dr. Ashlie Hills Lymphocytes/100 WBC (Bld) 29.9 % Normal 20.5-60.0 [facility] Comment on above: Performed By: #### C BC #### [facility] [address] [place] [address] Dr. Ashlie Hills MANUAL DIFF REQ NO Normal [facility] Comment on above: Performed By: #### C BC #### [facility] [address] [place] [address] Dr. Ashlie Hills MCH (RBC) [Entitic mass] 28.5 pg Normal 26.7-34.0 [facility] Comment on above: Performed By: #### C BC #### [facility] [address] [place] [address] Dr. Ashlie Hills MCHC (RBC) [Mass/Vol] 31.8 g/dL Normal 29.9-35.2 [facility] Comment on above: Performed By: #### C BC #### [facility] [address] [place] [address] Dr. Ashlie Hills MCV (RBC) [Entitic vol] 89.8 fL Normal 81.0-99.0 [facility] Comment on above: Performed By: #### C BC #### [facility] [address] [place] [address] Dr. Ashlie Hills MONO # 1.0 103/ul Critically high 0.3-0.8 [facility] Comment on above: Performed By: #### C BC #### [facility] [address] [place] [address] Dr. Ashlie Hills Monocytes/100 WBC (Bld) 10.6 % Normal 1.7-12.0 [facility] Comment on above: Performed By: #### C BC #### [facility] [address] [place] [address] Dr. Ashlie Hills NEUT # 5.3 103/ul Normal 1.4-6.5 [facility] Comment on above: Performed By: #### C BC #### [facility] [address] [place] [address] Dr. Ashlie Hills Neutrophils/100 WBC (Bld) 56.8 % Normal 43.0-75.0 [facility] Comment on above: Performed By: #### C BC #### [facility] [address] [address] [address] Ashlie Hills Platelet mean volume (Bld) [Entitic vol] 12.5 fL Normal 9.5-13.5 [facility] Comment on above: Performed By: #### C BC #### [facility] [address] [address] [address] Ashlie Hills PLT 109 103/ul Critically low 150-450 [facility] Comment on above: Performed By: #### C BC #### [facility] [address] [place] [address] Dr. Ashlie Hills RBC 5.47 106/ul Critically high 4.20-5.40 [facility] Comment on above: Performed By: #### C BC #### [facility] [address] [place] [address] Dr. Ashlie Hills WBC 9.4 103/ul Normal 4.0-11.0 [facility] Comment on above: Performed By: #### C BC #### [facility] [address] [place] [address] Dr. Ashlie Hills PROF 14(COMP METB)on 023 Albumin [Mass/Vol] 2.9 g/dL Critically low 3.4-5.0 [facility] Comment on above: Performed By: #### C BC #### [facility] [address] [place] [address] Dr. Ashlie Hills Albumin/Globulin [Mass ratio] 0.6 {ratio} Normal [facility] Comment on above: Performed By: #### C BC #### [facility] [address] [place] [address] Dr. Ashlie Hills ALP [Catalytic activity/Vol] 64 U/L Normal 46-116 [facility] Comment on above: Performed By: #### C BC #### [facility] [address] [place] [address] Dr. Ashlie Hills ALT [Catalytic activity/Vol] 16 U/L Normal 14-59 [facility] Comment on above: Performed By: #### C BC #### [facility] [address] [address] [address] Ashlie Hills Anion gap [Moles/Vol] 9.6 mmol/L Normal [facility] Comment on above: Performed By: #### C BC #### [facility] [address] [address] [address] Ashlie Hills AST [Catalytic activity/Vol] 16 U/L Normal 15-37 [facility] Comment on above: Performed By: #### C BC #### [facility] [address] [address] [address] Ashlie Hills Bilirubin [Mass/Vol] 0.5 mg/dL Normal 0.2-1.0 [facility] Comment on above: Performed By: #### C BC #### [facility] [address] [address] [address] Ashlie Hills Calcium [Mass/Vol] 8.7 mg/dL Normal 8.5-10.1 [facility] Comment on above: Performed By: #### C BC #### [facility] [address] [address] [address] Ashlie Hills Chloride [Moles/Vol] 103 mmol/L Normal 98-107 [facility] Comment on above: Performed By: #### C BC #### [facility] [address] [address] [address] Ashlie Hills CO2 [Moles/Vol] 30.7 mmol/L Normal 21.0-32.0 [facility] Comment on above: Performed By: #### C BC #### [facility] [address] [address] [address] Ashlie Hills Creatinine [Mass/Vol] 0.96 mg/dL Normal 0.55-1.02 [facility] Comment on above: Performed By: #### C BC #### [facility] [address] [address] [address] Ashlie Hills EGFR-AF FIJIAN >60 Normal >=60 [facility] Comment on above: Performed By: #### C BC #### [facility] [address] [place] [address] Dr. Ashlie iHlls EGFR-NON AF FIJIAN >60 Normal >=60 [facility] Comment on above: Performed By: #### C BC #### [facility] [address] [place] [address] Dr. Ashlie Hills Globulin (S) [Mass/Vol] 4.7 g/dL Normal [facility] Comment on above: Performed By: #### C BC #### [facility] [address] [address] [address] Ashlie Hills Glucose [Mass/Vol] 170 mg/dL Critically high 74-106 [facility] Comment on above: Performed By: #### C BC #### [facility] [address] [place] [address] Dr. Ashlie Hills Potassium [Moles/Vol] 4.3 mmol/L Normal 3.5-5.1 [facility] Comment on above: Performed By: #### C BC #### [facility] [address] [place] [address] Dr. Ashlie Hills Protein [Mass/Vol] 7.6 g/dL Normal 6.4-8.2 [facility] Comment on above: Performed By: #### C BC #### [facility] [address] [place] [address] Dr. Ashlie Hills Sodium [Moles/Vol] 139 mmol/L Normal 136-145 [facility] Comment on above: Performed By: #### C BC #### [facility] [address] [place] [address] Dr. Ashlie Hills Urea nitrogen [Mass/Vol] 16.0 mg/dL Normal 7.0-18.0 [facility] Comment on above: Performed By: #### C BC #### [facility] [address] [place] [address] Dr. Ashlie Hills Urea nitrogen/Creatinine [Mass ratio] 16.7 mg/mg Normal [facility] Comment on above: Performed By: #### C BC #### [facility] [address] [place] [address] Dr. Ashlie Hills SYMPTOMATIC COVID-19 ANTIGEN on 12-04-2022 EUA Statement SEE BELOW Normal [facility] Comment on above: Result Comment: This test [...] sooner. Performed By: #### C VDAGS #### [facility] [address] [place] [address] Dr. Ashlie Hills SARS-CoV-2 (COVID-19) RNA MADDY+probe Ql (Unsp spec) Negative Normal NEGATIVE [facility] Comment on above: Performed By: #### C VDAGS #### [facility] [address] [address] [address] Ashlie Hills TROPONIN, HIGH SENSITIVITYon 12-04-2022 HSTROP 8.9 pg/mL Normal 4.0-51.3 [facility] Comment on above: Result Comment: CUT- OFF POINTS HAVE BEEN ESTABLISHED BASED ON THE FOURTH UNIVERSAL DEFINITIONS OF MYOCARDIAL INFARCTION. THE UPPER REFERENCE LIMIT (URL) OF TROPONIN, DEFINED THE 99TH PERCENTILE OF cTnI DISTRIBUTION IN A REFERENCE POPULATION, HAS BEEN CONFIRMED THE DECISION THRESHOLD FOR MS DIAGNOSIS. Performed By: #### P OCGLUC #### [facility] [address] [address] [address] Ashlie Hills MICROALBUMIN, RAND URon 11-06 mALB 35.8 mg/dL Critically high <=30.0 [facility] Comment on above: Performed By: #### C VDAGS #### [facility] [address] [address] [address] Ashlie Hills UA RANDOM W/MICROSCOPICon BACTERIA NONE SEEN Normal NONE SEEN [facility] Comment on above: Performed By: #### C VDAGS #### [facility] [address] [place] [address] Dr. Ashlie Hills Bilirubin Ql (U) Negative Normal NEGATIVE [facility] Comment on above: Performed By: #### C VDAGS #### [facility] [address] [place] [address] Dr. Ashlie Hills CAST SEEN Abnormal NONE SEEN [facility] Comment on above: Performed By: #### C VDAGS #### [facility] [address] [place] [address] Dr. Ashlei Hills Clarity (U) CLEAR Normal CLEAR [facility] Comment on above: Performed By: #### C VDAGS #### [facility] [address] [place] [address] Dr. Ashlie Hills Color (U) YELLOW Normal YELLOW [facility] Comment on above: Performed By: #### C VDAGS #### [facility] [address] [place] [address] Dr. Ashlie Hills Crystals LM Nom (Urine sed) NONE SEEN Normal NONE SEEN [facility] Comment on above: Performed By: #### C VDAGS #### [facility] [address] [place] [address] Dr. Ashlie Hills Epithelial cells LM Ql (Urine sed) MODERATE Abnormal NONE SEEN /RARE [facility] Comment on above: Performed By: #### C VDAGS #### [facility] [address] [place] [address] Dr. Ashlie Hills Glucose Ql (U) Negative Normal NEGATIVE [facility] Comment on above: Performed By: #### C VDAGS #### [facility] [address] [place] [address] Dr. Ashlie Hills Hemoglobin Ql (U) TRACE-INTACT Abnormal NEGATIVE [facility] Comment on above: Performed By: #### C VDAGS #### [facility] [address] [place] [address] Dr. Ashlie Hills Ketones Ql (U) Negative Normal NEGATIVE [facility] Comment on above: Performed By: #### C VDAGS #### [facility] [address] [place] [address] Dr. Ashlie Hills LEUKOCYTES Negative Normal NEGATIVE [facility] Comment on above: Performed By: #### C VDAGS #### [facility] [address] [place] [address] Dr. Ashlie Hills MUCOUS NONE SEEN Normal NONE SEEN [facility] Comment on above: Performed By: #### C VDAGS #### [facility] [address] [place] [address] Dr. Ashlie Hills Nitrite Ql (U) Negative Normal NEGATIVE [facility] Comment on above: Performed By: #### C VDAGS #### [facility] [address] [place] [address] Dr. Ashlie Hills pH (U) 5.0 [pH] Normal 5-9 [facility] Comment on above: Performed By: #### C VDAGS #### [facility] [address] [place] [address] Dr. Ashlie Hills RBC 0-2 Normal 0-2 [facility] Comment on above: Performed By: #### C VDAGS #### [facility] [address] [place] [address] Dr. Ashlie iHlls SPEC GRAVITY 1.030 Abnormal 1.005-<=1.025 [facility] Comment on above: Performed By: #### C VDAGS #### [facility] [address] [place] [address] Dr. Ashlie Hills UA PROTEIN 100 mg/dl Abnormal NEGATIVE/ TRACE [facility] Comment on above: Performed By: #### C VDAGS #### [facility] [address] [place] [address] Dr. Ashlie Hills Urobilinogen Qn (U) 0.2 {Little'U}/dL Normal 0.2 - 1. 0 [facility] Comment on above: Performed By: #### C VDAGS #### [facility] [address] [place] [address] Dr. Ashlie Hills WBC NONE SEEN Normal NONE SEEN [facility] Comment on above: Performed By: #### C VDAGS #### [facility] [address] [place] [address] Dr. Ashlie Hills CBC AUTO DIFFon 11-22-2022 BASO # 0.0 103/ul Normal 0.0-0.1 [facility] Comment on above: Performed By: #### C BC #### [facility] [address] [place] [address] Dr. Ashlie Hills Basophils/100 WBC (Bld) 0.3 % Normal 0.2-2.0 [facility] Comment on above: Performed By: #### C BC #### [facility] [address] [place] [address] Dr. Ashlie Hills EO # 0.4 103/ul Normal 0.0-0.7 [facility] Comment on above: Performed By: #### C BC #### [facility] [address] [place] [address] Dr. Ashlie Hills Eosinophils/100 WBC (Bld) 3.0 % Normal 0.9-7.0 [facility] Comment on above: Performed By: #### C BC #### [facility] [address] [place] [address] Dr. Ashlie Hills Erythrocyte distribution width (RBC) [Ratio] 15.3 % Critically high 11.0-15.0 [facility] Comment on above: Performed By: #### C BC #### [facility] [address] [place] [address] Dr. Ashlie Hills Hematocrit (Bld) [Volume fraction] 52.4 % Critically high 36.0-48.0 [facility] Comment on above: Performed By: #### C BC #### [facility] [address] [place] [address] Dr. Ashile Hills Hemoglobin (Bld) [Mass/Vol] 16.8 g/dL Critically high 12.0-16.0 [facility] Comment on above: Performed By: #### C BC #### [facility] [address] [place] [address] Dr. Ashlie Hills IG # 0.04 10e3/ul Critically high 0.00-0.03 [facility] Comment on above: Performed By: #### C BC #### [facility] [address] [place] [address] Dr. Ashlie Hills IG % 0.3 % Normal 0.0-0.5 [facility] Comment on above: Performed By: #### C BC #### [facility] [address] [place] [address] Dr. Ashlie Hills LYMPH # 4.5 103/ul Critically high 1.2-3.8 [facility] Comment on above: Performed By: #### C BC #### [facility] [address] [place] [address] Dr. Ashlie Hills Lymphocytes/100 WBC (Bld) 33.2 % Normal 20.5-60.0 [facility] Comment on above: Performed By: #### C BC #### [facility] [address] [place] [address] Dr. Ashlie Hills MANUAL DIFF REQ NO Normal [facility] Comment on above: Performed By: #### C BC #### [facility] [address] [place] [address] Dr. Ashlie Hills MCH (RBC) [Entitic mass] 28.0 pg Normal 26.7-34.0 [facility] Comment on above: Performed By: #### C BC #### [facility] [address] [place] [address] Dr. Ashlie Hills MCHC (RBC) [Mass/Vol] 32.1 g/dL Normal 29.9-35.2 [facility] Comment on above: Performed By: #### C BC #### [facility] [address] [place] [address] Dr. Ashlie Hills MCV (RBC) [Entitic vol] 87.3 fL Normal 81.0-99.0 [facility] Comment on above: Performed By: #### C BC #### [facility] [address] [place] [address] Dr. Ashlie Hills MONO # 0.8 103/ul Normal 0.3-0.8 [facility] Comment on above: Performed By: #### C BC #### [facility] [address] [place] [address] Dr. Ashlie Hills Monocytes/100 WBC (Bld) 5.7 % Normal 1.7-12.0 [facility] Comment on above: Performed By: #### C BC #### [facility] [address] [address] [address] Ashlie Hills NEUT # 7.8 103/ul Critically high 1.4-6.5 [facility] Comment on above: Performed By: #### C BC #### [facility] [address] [place] [address] Dr. Ashlie Hills Neutrophils/100 WBC (Bld) 57.5 % Normal 43.0-75.0 [facility] Comment on above: Performed By: #### C BC #### [facility] [address] [place] [address] Dr. Ashlie Hills Platelet mean volume (Bld) [Entitic vol] 12.0 fL Normal 9.5-13.5 [facility] Comment on above: Performed By: #### C BC #### [facility] [address] [place] [address] Dr. Ashlie Hills PLT 152 103/ul Normal 150-450 [facility] Comment on above: Performed By: #### C BC #### [facility] [address] [place] [address] Dr. Ashlie Hills RBC 6.00 106/ul Critically high 4.20-5.40 [facility] Comment on above: Performed By: #### C BC #### [facility] [address] [place] [address] Dr. Ashlie Hills WBC 13.6 103/ul Critically high 4.0-11.0 [facility] Comment on above: Performed By: #### C BC #### [facility] [address] [place] [address] Dr. Ashlie Hills LIPID PROFILEon 11-22-2022 CHOL-HDL RATIO NORM SEE BELOW Normal [facility] Comment on above: Result Comment: 3.3 - 4.4 LOW RISK 4.4 - 7.1 AVERAGE RISK 7.1 - 11.0 MODERATE RISK >11.0 HIGH RISK Performed By: #### C BC #### [facility] [address] [address] [address] Ashlie Hills Cholesterol [Mass/Vol] 139 mg/dL Normal <=200 [facility] Comment on above: Performed By: #### C BC #### [facility] [address] [address] [address] Ashlie Hills Cholesterol in HDL [Mass/Vol] 35 mg/dL Critically low 40-60 [facility] Comment on above: Performed By: #### C BC #### [facility] [address] [address] [address] Ashlie Hills Cholesterol in LDL [Mass/Vol] 67.4 mg/dL Normal [facility] Comment on above: Performed By: #### C BC #### [facility] [address] [address] [address] Ashlie Hills Cholesterol.total/Ch olesterol in HDL [Mass ratio] 4.0 {ratio} Normal [facility] Comment on above: Performed By: #### C BC #### [facility] [address] [place] [address] Dr. Ashlie Hills HDL NORMAL > or = 60 mg/dl - LOW CARDIOVASCULAR RISK <40 mg/dl - HIGH CARDIOVASCULAR RISK Normal [facility] Comment on above: Performed By: #### C BC #### [facility] [address] [address] [address] Ashlie Hills LDL CALC NORMAL SEE BELOW Normal [facility] Comment on above: Result Comment: <100 mg/dl OPTIMAL 100 - 129 mg/dl NEAR OR ABOVE OPTIMAL 130 - 159 mg/dl BORDERLINE HIGH 160 - 189 mg/dl HIGH >190 mg/dl VERY HIGH Performed By: #### C BC #### [facility] [address] [place] [address] Dr. Ashlie Hills Triglyceride [Mass/Vol] 183 mg/dL Critically high <=150 [facility] Comment on above: Performed By: #### C BC #### [facility] [address] [place], [place] [address] Dr. Ashlie Hills VLDL CALC 36.6 mg/dL Normal [facility] Comment on above: Performed By: #### C BC #### [facility] [address] [place], [place] [address] Dr. 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 LOCATION: [facility] BREAST COMPOSITION: Almost entirely fatty. FINDINGS: [...] Ivan M.D. on 11/22/2022 at 12:09 Normal [facility] PROF 14(COMP METB)on 023 Albumin [Mass/Vol] 3.0 g/dL Critically low 3.4-5.0 [facility] Comment on above: Performed By: #### C BC #### [facility] [address] [address] [address] Ashlie Hills Albumin/Globulin [Mass ratio] 0.6 {ratio} Normal [facility] Comment on above: Performed By: #### C BC #### [facility] [address] [address] [address] Ashlie Hills ALP [Catalytic activity/Vol] 68 U/L Normal 46-116 [facility] Comment on above: Performed By: #### C BC #### [facility] [address] [address] [address] Ashlie Hills ALT [Catalytic activity/Vol] 14 U/L Normal 14-59 [facility] Comment on above: Performed By: #### C BC #### [facility] [address] [place] [address] Dr. Ashlie Hills Anion gap [Moles/Vol] 12.1 mmol/L Normal [facility] Comment on above: Performed By: #### C BC #### [facility] [address] [place] [address] Dr. Ashlie Hills AST [Catalytic activity/Vol] 9 U/L Critically low 15-37 [facility] Comment on above: Performed By: #### C BC #### [facility] [address] [place] [address] Dr. Ashlie Hills Bilirubin [Mass/Vol] 0.4 mg/dL Normal 0.2-1.0 [facility] Comment on above: Performed By: #### C BC #### [facility] [address] [place] [address] Dr. Ashlie Hills Calcium [Mass/Vol] 9.0 mg/dL Normal 8.5-10.1 [facility] Comment on above: Performed By: #### C BC #### [facility] [address] [place] [address] Dr. Ashlie Hills Chloride [Moles/Vol] 105 mmol/L Normal 98-107 [facility] Comment on above: Performed By: #### C BC #### [facility] [address] [place] [address] Dr. Ashlie Hills CO2 [Moles/Vol] 30.7 mmol/L Normal 21.0-32.0 [facility] Comment on above: Performed By: #### C BC #### [facility] [address] [place] [address] Dr. Ashlie Hills Creatinine [Mass/Vol] 0.77 mg/dL Normal 0.55-1.02 [facility] Comment on above: Performed By: #### C BC #### [facility] [address] [place] [address] Dr. Ashlie Hills EGFR-AF FIJIAN >60 Normal >=60 [facility] Comment on above: Performed By: #### C BC #### [facility] [address] [place] [address] Dr. Ashlie Hills EGFR-NON AF FIJIAN >60 Normal >=60 [facility] Comment on above: Performed By: #### C BC #### [facility] [address] [place] [address] Dr. Ashlie Hills Globulin (S) [Mass/Vol] 4.8 g/dL Normal [facility] Comment on above: Performed By: #### C BC #### [facility] [address] [place] [address] Dr. Ashlie Hills Glucose [Mass/Vol] 162 mg/dL Critically high 74-106 [facility] Comment on above: Performed By: #### C BC #### [facility] [address] [place] [address] Dr. Ashlie Hills Potassium [Moles/Vol] 3.8 mmol/L Normal 3.5-5.1 [facility] Comment on above: Performed By: #### C BC #### [facility] [address] [place] [address] Dr. Ashlie Hills Protein [Mass/Vol] 7.8 g/dL Normal 6.4-8.2 [facility] Comment on above: Performed By: #### C BC #### [facility] [address] [place] [address] Dr. Ashlie Hills Sodium [Moles/Vol] 144 mmol/L Normal 136-145 [facility] Comment on above: Performed By: #### C BC #### [facility] [address] [place], [place] [address] Dr. Ashlie Hills Urea nitrogen [Mass/Vol] 24.0 mg/dL Critically high 7.0-18.0 [facility] Comment on above: Performed By: #### C BC #### [facility] [address] [place], [place] [address] Dr. Ashlie Hills Urea nitrogen/Creatinine [Mass ratio] 31.2 mg/mg Normal [facility] Comment on above: Performed By: #### C BC #### [facility] [address] [address] [address] Ashlie Hills Patient Educationon 11-16-19 23 [...] Spinach (cooked), rhubarb, beets, sweet potatoes, and Kyrgyz chard. ? Peanuts. ? Potato chips, australian fries, and baked potatoes with skin on. ? Nuts and nut products. ? Chocolate. ? If you regularly take a diuretic medicine, make sure to eat at least 1 or 2 servings of fruits or vegetables that are high in potassium each day. These include: ? Avocado. ? Banana. ? Piute, prune, carrot, or tomato juice. ? Baked [...] fish oil, or vitamin B6. ? Take zook-akm-jckjkzw and prescription medicines only as told by your health care provider. These include supplements. What foods should I limit? Limit your in (more content not included)... Normal [facility] Reminderson 11-15-2022 Reminders - From: Maria Elena Negrete To: SHEA Vega; Sent: 11/15/2022 14:23:36 EDT Show up: 04/17/2024 14:23:00 EDT Subject: Schedule CT AP w betsy Due Date/Time: 05/18/2024 13:23:00 EST Please schedule [address] AP w con for adrenal mass. Normal [facility] Urology Office/Clinic Noteon 11-15-2022 Urology Office/Clinic [...] Contact Information SILVIA HOWELL, GAVIOTA Webb, URL [address] [place] [address] Additional Instructions: [address] AP w [...] (1/2 pack (more content not included)... Normal [facility] Comment on above: Result Comment: Elec tronically Signed By: GAVIOTA VEGA PA-C\.br\Date and Time Signed: 11/15/22 14:32 EDT\.br\Electronically Co-Signed By: Maria Elena Negrete\.br\Date and Time Co-Signed: 11/15/22 14:22 EDT\.br\Electronically Co-Signed By: Maria Elena Negrete\.br\Date and Time Co-Signed: 11/15/22 14:22 EDT CBC AUTO DIFFon 10-05-2022 BASO # 0.1 103/ul Normal 0.0-0.1 [facility] Comment on above: Performed By: #### C BC #### [facility] [address] [address] [address] Ashlie Hills Basophils/100 WBC (Bld) 0.6 % Normal 0.2-2.0 [facility] Comment on above: Performed By: #### C BC #### [facility] [address] [address] [address] Ashlie Hills EO # 0.3 103/ul Normal 0.0-0.7 [facility] Comment on above: Performed By: #### C BC #### [facility] [address] [place] [address] Dr. Ashlie Hills Eosinophils/100 WBC (Bld) 2.1 % Normal 0.9-7.0 [facility] Comment on above: Performed By: #### C BC #### [facility] [address] [place] [address] Dr. Ashlie Hills Erythrocyte distribution width (RBC) [Ratio] 15.9 % Critically high 11.0-15.0 [facility] Comment on above: Performed By: #### C BC #### [facility] [address] [place] [address] Dr. Ashlie Hills Hematocrit (Bld) [Volume fraction] 51.8 % Critically high 36.0-48.0 [facility] Comment on above: Performed By: #### C BC #### [facility] [address] [place] [address] Dr. Ashlie Hills Hemoglobin (Bld) [Mass/Vol] 16.6 g/dL Critically high 12.0-16.0 [facility] Comment on above: Performed By: #### C BC #### [facility] [address] [place] [address] Dr. Ashlie Hills IG # 0.03 10e3/ul Normal 0.00-0.03 [facility] Comment on above: Performed By: #### C BC #### [facility] [address] [place] [address] Dr. Ashlie Hills IG % 0.2 % Normal 0.0-0.5 [facility] Comment on above: Performed By: #### C BC #### [facility] [address] [place] [address] Dr. Ashlie Hills LYMPH # 3.9 103/ul Critically high 1.2-3.8 [facility] Comment on above: Performed By: #### C BC #### [facility] [address] [place] [address] Dr. Ashlie Hills Lymphocytes/100 WBC (Bld) 31.7 % Normal 20.5-60.0 [facility] Comment on above: Performed By: #### C BC #### [facility] [address] [place] [address] Dr. Ashlie Hills MANUAL DIFF REQ NO Normal [facility] Comment on above: Performed By: #### C BC #### [facility] [address] [place] [address] Dr. Ashlie Hills MCH (RBC) [Entitic mass] 27.9 pg Normal 26.7-34.0 [facility] Comment on above: Performed By: #### C BC #### [facility] [address] [place] [address] Dr. Ashlie Hills MCHC (RBC) [Mass/Vol] 32.0 g/dL Normal 29.9-35.2 [facility] Comment on above: Performed By: #### C BC #### [facility] [address] [place] [address] Dr. Ashlie Hills MCV (RBC) [Entitic vol] 87.1 fL Normal 81.0-99.0 [facility] Comment on above: Performed By: #### C BC #### [facility] [address] [place] [address] Dr. Ashlie Hills MONO # 0.7 103/ul Normal 0.3-0.8 [facility] Comment on above: Performed By: #### C BC #### [facility] [address] [place] [address] Dr. Ashlie Hills Monocytes/100 WBC (Bld) 5.8 % Normal 1.7-12.0 [facility] Comment on above: Performed By: #### C BC #### [facility] [address] [place] [address] Dr. Ashlie Hills NEUT # 7.3 103/ul Critically high 1.4-6.5 [facility] Comment on above: Performed By: #### C BC #### [facility] [address] [place] [address] Dr. Ashlie Hills Neutrophils/100 WBC (Bld) 59.6 % Normal 43.0-75.0 [facility] Comment on above: Performed By: #### C BC #### [facility] [address] [place], [place] [address] Dr. Ashlie Hills Platelet mean volume (Bld) [Entitic vol] 11.7 fL Normal 9.5-13.5 [facility] Comment on above: Performed By: #### C BC #### [facility] [address] [place], [place] [address] Dr[address] Ashlie Hills PLT 117 103/ul Critically low 150-450 [facility] Comment on above: Performed By: #### C BC #### [facility] [address] [address] [address] Ashlie Hills RBC 5.95 106/ul Critically high 4.20-5.40 [facility] Comment on above: Performed By: #### C BC #### [facility] [address] [address] [address] Ashlie Hills WBC 12.3 103/ul Critically high 4.0-11.0 [facility] Comment on above: Performed By: #### C BC #### [facility] [address] [address] [address] ABD/PELV W CONon [...] RICCO PICKARD Date: 2022-10-05 13:13 Normal [facility] URINE PROFILEon 3 Bilirubin Ql (U) Negative Normal NEGATIVE [facility] Comment on above: Performed By: #### P OCGLUC #### [facility] [address] [address] [address] Ashlie Hills Clarity (U) CLEAR Normal CLEAR [facility] Comment on above: Performed By: #### P OCGLUC #### [facility] [address] [address] [address] Ashlie Hills Color (U) YELLOW Normal YELLOW [facility] Comment on above: Performed By: #### P OCGLUC #### [facility] [address] [place] [address] Dr. Ashlei HOBBS A micrscopic examination will be performed if indicated. Normal [facility] Comment on above: Performed By: #### P OCGLUC #### [facility] [address] [address] [address] Ashlie Hills Glucose Ql (U) Negative Normal NEGATIVE [facility] Comment on above: Performed By: #### P OCGLUC #### [facility] [address] [address] [address] Ashlie Hills Hemoglobin Ql (U) Negative Normal NEGATIVE [facility] Comment on above: Performed By: #### P OCGLUC #### [facility] [address] [address] [address] Ashlie Hills Ketones Ql (U) Negative Normal NEGATIVE [facility] Comment on above: Performed By: #### P OCGLUC #### [facility] [address] [address] [address] Ashlie Hills LEUKOCYTES Negative Normal NEGATIVE [facility] Comment on above: Performed By: #### P OCGLUC #### [facility] [address] [address] [address] Ashlie Hills Nitrite Ql (U) Negative Normal NEGATIVE [facility] Comment on above: Performed By: #### P OCGLUC #### [facility] [address] [address] [address] Ashlie Hills pH (U) 6.0 [pH] Normal 5-9 [facility] Comment on above: Performed By: #### P OCGLUC #### [facility] [address] [address] [address] Ashlie Hills Protein (U) [Mass/Vol] 100 mg/dL Abnormal NEGATIVE/ TRACE [facility] Comment on above: Performed By: #### P OCGLUC #### [facility] [address] [address] [address] Ashlie Hills SPEC GRAVITY 1.010 Normal 1.005-<=1.025 [facility] Comment on above: Performed By: #### P OCGLUC #### [facility] [address] [place] [address] Dr. Ashlie Hills UR MICRO IND INDICATED Normal [facility] Comment on above: Performed By: #### P OCGLUC #### [facility] [address] [place] [address] Dr. Ashlie Hills Urobilinogen Qn (U) 1.0 {Little'U}/dL Normal 0.2 - 1. 0 [facility] Comment on above: Performed By: #### P OCGLUC #### [facility] [address] [place] [address] Dr. Ashlie Hills LIPASEon 10-05-2022 Lipase [Catalytic activity/Vol] 1771.0 U/L Critically high 73.0-393.0 [facility] Comment on above: Performed By: #### C BC #### [facility] [address] [address] [address] Ashlie Hills PREG HCG QUALon 10-05-2022 , QUAL Negative Normal NEGATIVE [facility] Comment on above: Performed By: #### P OCGLUC #### [facility] [address] [place] [address] Dr. Ashlie Hills PROF 14(COMP METB)on 023 Albumin [Mass/Vol] 3.2 g/dL Critically low 3.4-5.0 [facility] Comment on above: Performed By: #### C BC #### [facility] [address] [place] [address] Dr. Ashlie Hills Albumin/Globulin [Mass ratio] 0.7 {ratio} Normal [facility] Comment on above: Performed By: #### C BC #### [facility] [address] [address] [address] Ashlie Hills ALP [Catalytic activity/Vol] 70 U/L Normal 46-116 [facility] Comment on above: Performed By: #### C BC #### [facility] [address] [address] [address] Ashlie Hills ALT [Catalytic activity/Vol] 11 U/L Critically low 14-59 [facility] Comment on above: Performed By: #### C BC #### [facility] [address] [place] [address] Dr. Ashlie Hills Anion gap [Moles/Vol] 10.3 mmol/L Normal [facility] Comment on above: Performed By: #### C BC #### [facility] [address] [place] [address] Dr. Ashlie Hills AST [Catalytic activity/Vol] 11 U/L Critically low 15-37 [facility] Comment on above: Performed By: #### C BC #### [facility] [address] [place] [address] Dr. [place] Bilirubin [Mass/Vol] 0.9 mg/dL Normal 0.2-1.0 [facility] Comment on above: Performed By: #### C BC #### [facility] [address] [place] [address] Dr. Ashlie Hills Calcium [Mass/Vol] 9.3 mg/dL Normal 8.5-10.1 [facility] Comment on above: Performed By: #### C BC #### [facility] [address] [address] [address] Ashlie Hills Chloride [Moles/Vol] 105 mmol/L Normal 98-107 [facility] Comment on above: Performed By: #### C BC #### [facility] [address] [address] [address] Ashlie Hills CO2 [Moles/Vol] 30.6 mmol/L Normal 21.0-32.0 [facility] Comment on above: Performed By: #### C BC #### [facility] [address] [address] [address] Ashlie Hills Creatinine [Mass/Vol] 0.62 mg/dL Normal 0.55-1.02 [facility] Comment on above: Performed By: #### C BC #### [facility] [address] [place] [address] Dr. Ashlie Hills EGFR-AF FIJIAN >60 Normal >=60 [facility] Comment on above: Performed By: #### C BC #### [facility] [address] [place] [address] Dr. Ashlie Hills EGFR-NON AF FIJIAN >60 Normal >=60 [facility] Comment on above: Performed By: #### C BC #### [facility] [address] [place] [address] Dr. Ashlie Hills Globulin (S) [Mass/Vol] 4.6 g/dL Normal [facility] Comment on above: Performed By: #### C BC #### [facility] [address] [place] [address] Dr. Ashlie Hills Glucose [Mass/Vol] 85 mg/dL Normal 74-106 [facility] Comment on above: Performed By: #### C BC #### [facility] [address] [place] [address] Dr. Ashlie Hills Potassium [Moles/Vol] 3.9 mmol/L Normal 3.5-5.1 [facility] Comment on above: Performed By: #### C BC #### [facility] [address] [place] [address] Dr. Ashlie Hills Protein [Mass/Vol] 7.8 g/dL Normal 6.4-8.2 [facility] Comment on above: Performed By: #### C BC #### [facility] [address] [place] [address] Dr. Ashlie Hills Sodium [Moles/Vol] 142 mmol/L Normal 136-145 [facility] Comment on above: Performed By: #### C BC #### [facility] [address] [place] [address] Dr. Ashlie Hills Urea nitrogen [Mass/Vol] 12.0 mg/dL Normal 7.0-18.0 [facility] Comment on above: Performed By: #### C BC #### [facility] [address] [place] [address] Dr. Ashlie Hills Urea nitrogen/Creatinine [Mass ratio] 19.4 mg/mg Normal [facility] Comment on above: Performed By: #### C BC #### [facility] [address] [place] [address] Dr. Ashlie Hills URINE MICROSCOPIC ONLYon BACTERIA TRACE Abnormal NONE SEEN [facility] Comment on above: Performed By: #### P OCGLUC #### [facility] [address] [place] [address] Dr. Ashlie Hills Bacteria identified Cx Nom (U) NOT INDICATED Normal [facility] Comment on above: Performed By: #### P OCGLUC #### [facility] [address] [place] [address] Dr. Ashlie Hills CAST NONE SEEN Normal NONE SEEN [facility] Comment on above: Performed By: #### P OCGLUC #### [facility] [address] [place] [address] Dr. Ashlie Hills Crystals LM Nom (Urine sed) NONE SEEN Normal NONE SEEN [facility] Comment on above: Performed By: #### P OCGLUC #### [facility] [address] [place] [address] Dr. Ashlie Hills Epithelial cells LM Ql (Urine sed) MODERATE Abnormal NONE SEEN /RARE [facility] Comment on above: Performed By: #### P OCGLUC #### [facility] [address] [place] [address] Dr. Ashlie Hills MUCOUS NONE SEEN Normal NONE SEEN [facility] Comment on above: Performed By: #### P OCGLUC #### [facility] [address] [place] [address] Dr. Ashlie Hills RBC 0-2 Normal 0-2 [facility] Comment on above: Performed By: #### P OCGLUC #### [facility] [address] [place] [address] Dr. Ashlie Hills WBC 0-2 Abnormal NONE SEEN [facility] Comment on above: Performed By: #### P OCGLUC #### [facility] [address] [place] [address] Dr. Ashlie Hills Covid-19 PCR ([facility])on 09-06 SARS-CoV-2 (COVID-19) RNA MADDY+probe Ql (Unsp spec) Detected Abnormal NOT DETECTED [facility] Comment on above: Result Comment: This test is not yet approved or cleared by the [place] FDA. When there are no FDA-approved or cleared tests available, and other criteria are met, FDA can make tests available under an emergency access mechanism called an Emergency Use Authorization (EUA). The EUA for this test is supported by the [place] of Health and Human Service's declaration that [...] used). Performed By: #### C VDAGS #### [facility] [address] [place] [address] Dr. Ashlie Hills INFLUENZA A AND B AGon 09-21 INFLUANEGH SEE BELOW Normal [facility] Comment on above: Result Comment: Nega tive for Flu A protein angiten. Infection due to Flu A cannot be ruled out. Flu A angiten in the sample may be below the detection limit of the test. Performed By: #### I NFLUAB #### [facility] [address] [place] [address] Dr. Ashlie Hills INFLUBNEGH SEE BELOW Normal [facility] Comment on above: Result Comment: Nega tive for Flu B protein antigen. Infection due to Flu B cannot be ruled out. Flu B antigen in the sample may be below the detection limit of the test. Performed By: #### I NFLUAB #### [facility] [address] [place] [address] Dr. Ashlie Hills INFLUENZA A AG Negative Normal NEGATIVE SEE COMMENT [facility] Comment on above: Performed By: #### I NFLUAB #### [facility] [address] [address] [address] Ashlie Hills INFLUENZA B AG Negative Normal NEGATIVE SEE COMMENT [facility] Comment on above: Performed By: #### I NFLUAB #### [facility] [address] [address] [address] Ashlie Hills RAD - CT Reporton 07-31-2022 RAD - CT Report [id number] #1.00CD:[address] [facility] CT ABD/PELV W CONon 07-27-19 CT [...] to at least 10/21/2018, unchanged. https://www.ncbi.nlm .nih.gov/pmc/article s/[email or web address]/ Electronically authenticated by: COLLIN HUERTAS Date: 2022-07-27 14:56 Normal [facility] Reminderson 07-27-2022 Reminders - From: Raquel Tidwell To: EU - Recalls Vargas; Sent: 02/06/2022 11:45:57 EDT Show up: 07/09/2022 11:45:00 EST Subject: Ct scan Due Date/Time: 07/31/2022 11:45:00 EST Reminder/Recall Pt needs Ct scan abd/pelvis w contrast ATTN Adrenals scheduled prior to Aug 2022 appt. She wants [facility] order faxed to [facility] Pt scheduled for 07/27/2022 will monitor [facility] for results over the next few days Normal [facility] Physician Orderon 07-19-2022 Physician Order [id number] #1.00CD:[address] [facility] CREATININEon 07-18-2022 Creatinine [Mass/Vol] 0.81 mg/dL Normal 0.55-1.02 [facility] Comment on above: Performed By: #### C BC #### [facility] [address] [place] [address] Dr. Ashlie Hills EGFR-AF FIJIAN >60 Normal >=60 [facility] Comment on above: Performed By: #### C BC #### [facility] [address] [place] [address] Dr. Ashlie Hills EGFR-NON AF FIJIAN >60 Normal >=60 [facility] Comment on above: Performed By: #### C BC #### [facility] [address] [place] [address] LOW EXT W [...] PATRICIA IVAN Date: 2022-07-18 14:58 Normal [facility] XR KNEE LT 1_2 Von 3 [...] HATTIE BAUTISTA Date: 2022-07-18 12:00 Normal [facility]-09 SARS-CoV-2 (COVID-19) RNA MADDY+probe Ql (Unsp spec) Not detected Normal NOT DETECTED [facility] Comment on above: Result Comment: This test is not yet approved or cleared by the [place] FDA. When there are no FDA-approved or cleared tests available, and other criteria are met, FDA can make tests available under an emergency access mechanism called an Emergency Use Authorization (EUA). The EUA for this test is supported by the [place] of Health and Human Service's (HHS's) declaration [...] SARS-CoV-2. Performed By: #### C BC #### [facility] [address] [place] [address] Dr. Ashlie Hills INFLUENZA A AND B AGon 07-06 INFLUANE SEE BELOW Normal [facility] Comment on above: Result Comment: Nega tive for Flu A protein angiten. Infection due to Flu A cannot be ruled out. Flu A angiten in the sample may be below the detection limit of the test. Performed By: #### C BC #### [facility] [address] [place] [address] Dr. Ashlie Hills INFLUBNEG SEE BELOW Normal [facility] Comment on above: Result Comment: Nega tive for Flu B protein antigen. Infection due to Flu B cannot be ruled out. Flu B antigen in the sample may be below the detection limit of the test. Performed By: #### C BC #### [facility] [address] [place] [address] Dr. Ashlie Hills INFLUENZA A AG Negative Normal NEGATIVE SEE COMMENT [facility] Comment on above: Performed By: #### C BC #### [facility] [address] [place] [address] Dr. Ashlie Hills INFLUENZA B AG Negative Normal NEGATIVE SEE COMMENT [facility] Comment on above: Performed By: #### C BC #### [facility] [address] [place] [address] Dr. Ashlie Hills POINT OF CARE GLUCOSEon 04-08 Glucose [Mass/Vol] 108 mg/dL Critically high 74-106 [facility] Comment on above: Performed By: #### C BC #### [facility] [address] [place] [address] Dr. Ashlie Hills RAGHU by IFAon 03-07-2022 Antinuclear Antibodies, IFA Negative Normal [facility] Comment on above: Result Comment: Nega tive <1:80 Borderline 1:80 Positive >1:80 ICAP nomenclature: AC-0 For more information about Hep-2 cell patterns use ANApatterns.org, the official website for the International Consensus on Antinuclear Antibody (RAGHU) Patterns (ICAP). Performed By: #### A NAIFA #### [facility] [address] [place] [address] Dr. Ahslie Hills IMMUNOFIXATION (TREVON), URINEo n 03-07-2022 TREVON Interpretation:U Comment Normal [facility] Comment on above: Result Comment: No m onoclonality detected. Performed By: #### C BC #### [facility] [address] [place] [address] Dr. Ashlie Hills IMMUNOFIXATION(TREVON),PROTEIN ELEC(PE),FREon 03-07-2022 Albumin [Mass/Vol] 3.0 g/dL Normal 2.9-4.4 [facility] Comment on above: Performed By: #### I NFLUAB #### [facility] [address] [place] [address] Dr. Ashlie Hills Albumin/Globulin [Mass ratio] 0.8 {ratio} Normal 0.7-1.7 [facility] Comment on above: Performed By: #### I NFLUAB #### [facility] [address] [place] [address] Dr. Ashlie Hills Pbxdc-5-Gnvtowun 0.3 g/dL Normal 0.0-0.4 [facility] Comment on above: Performed By: #### I NFLUAB #### [facility] [address] [place] [address] Dr. Ashlie Hills Eppvf-2-Rmeuhacr 1.0 g/dL Normal 0.4-1.0 [facility] Comment on above: Performed By: #### I NFLUAB #### [facility] [address] [place] [address] Dr. Ashlie Hills Beta Globulin 1.8 g/dL Critically high 0.7-1.3 [facility] Comment on above: Performed By: #### I NFLUAB #### [facility] [address] [place] [address] Dr. Ashlie Hills Free [place] Lt Chains,S 45.2 mg/L Critically high 3.3-19.4 [facility] Comment on above: Performed By: #### I NFLUAB #### [facility] [address] [address] [address] Ashlie Hills Free Lambda Lt Chains,S 40.3 mg/L Critically high 5.7-26.3 [facility] Comment on above: Performed By: #### I NFLUAB #### [facility] [address] [address] [address] Ashlie Hills Gamma Globulin 0.8 g/dL Normal 0.4-1.8 [facility] Comment on above: Performed By: #### I NFLUAB #### [facility] [address] [address] [address] Ashlie Hills Globulin (S) [Mass/Vol] 3.9 g/dL Normal 2.2-3.9 [facility] Comment on above: Performed By: #### I NFLUAB #### [facility] [address] [place] [address] Dr. Ashlie Hills Immunofixation Result, Serum Comment Normal [facility] Comment on above: Result Comment: No m onoclonality detected. Performed By: #### I NFLUAB #### [facility] [address] [address] [address] Ashlie Hills Immunoglobulin A, Qn, Serum 776 mg/dL Critically high 87-352 [facility] Comment on above: Performed By: #### I NFLUAB #### [facility] [address] [address] [address] Ashlie Hills Immunoglobulin G, Qn, Serum 955 mg/dL Normal 586-1602 [facility] Comment on above: Performed By: #### I NFLUAB #### [facility] [address] [address] [address] Ashlie Hills Immunoglobulin M, Qn, Serum 39 mg/dL Normal 26-217 [facility] Comment on above: Performed By: #### I NFLUAB #### [facility] [address] [address] [address] Ashlie Hills [place]/Lambda Ratio, S 1.12 Normal 0.26-1.65 [facility] Comment on above: Performed By: #### I NFLUAB #### [facility] [address] [place] [address] Dr. Ashlie Hills M-Bright Not Observed Normal Not Observed [facility] Comment on above: Performed By: #### I NFLUAB #### [facility] [address] [place] [address] Dr. Ashlie Hills PDF . Normal [facility] Comment on above: Performed By: #### I NFLUAB #### [facility] [address] [place] [address] Dr. Ashlie Hills Please note: Comment Normal [facility] Comment on above: Result Comment: Prot ein electrophoresis scan will follow via computer, mail, or pharmaceutical engineer delivery. Performed By: #### I NFLUAB #### [facility] [address] [place] [address] Dr. Ashlie Hills Protein [Mass/Vol] 6.9 g/dL Normal 6.0-8.5 [facility] Comment on above: Performed By: #### I NFLUAB #### [facility] [address] [place] [address] Dr. Ashlie Hills C-PEPTIDE, SERUMon 2 C-Peptide, Serum 3.1 ng/mL Normal 1.1-4.4 [facility] Comment on above: Result Comment: C-Pe ptide reference interval is for fasting patients. Performed By: #### C PEPT #### [facility] [address] [place] [address] Dr. Ashlie Hills HEP B SURFACE ANTIGEN SCREEN on 03-04-2022 HBsAg Screen Negative Normal Negative [facility] Comment on above: Performed By: #### C BC #### [facility] [address] [place] [address] Dr. Ashlie Hills HEPATITIS C VIRUS AB W/ REFL EX QUANTon 03-04-2022 HCV AB <0.1 Normal 0.0-0.9 [facility] Comment on above: Performed By: #### I NFLUAB #### [facility] [address] [place] [address] Dr. Ashlie Hills Interpretation: Comment Normal [facility] Comment on above: Result Comment: Rupert tikike Not infected with HCV, unless recent infection is suspected or other evidence exists to indicate HCV infection. Performed By: #### I NFLUAB #### [facility] [address] [address] [address] Ashlie Hills MICROALBUMIN/ CREATININE RAT IOon 03-04-2022 Albumin, Urine 367.4 ug/mL Normal Not Estab. [facility] Comment on above: Performed By: #### C BC #### [facility] [address] [address] [address] Ashlie Hills Albumin/ Creatinine Ratio 239 mg/g creat Critically high 0-29 [facility] Comment on above: Result Comment: Norm al: 0 - 29 Moderately increased: 30 - 300 Severely increased: >300 Performed By: #### C BC #### [facility] [address] [address] [address] Ashlie Hills Creatinine, Urine 153.9 mg/dL Normal Not Estab. [facility] Comment on above: Performed By: #### C BC #### [facility] [address] [address] [address] Ashlie Hills VIT D 25-OH LABCORPon 2021 Vitamin D, 25-Hydroxy <4.0 Critically low 30.0-100.0 [facility] Comment on above: Result Comment: Graciela min D deficiency has been defined by the [place] of Medicine and an Endocrine Society practice guideline as a level of serum 25-OH vitamin D less than 20 ng/mL (1,2). The Endocrine Society went on to further define vitamin D insufficiency as a level between 21 and 29 ng/mL (2). 1. IOM ([place] of [employer]). 2010. Dietary reference intakes for calcium and D. [place]: The National Academies Press. 2. Lynda MF, Keely OLIVEROS, Leandra LOPEZ, et al. Evaluation, treatment, and prevention of vitamin D deficiency: an Endocrine Society clinical practice guideline. JCEM. 2010; 96(7):1911-30. Performed By: #### C BC #### [facility] [address] [address] [address] Ashlie Hills GLYCOHEMOGLOBIN A1Con 2021 ADA RECOMMENDATION SEE BELOW Normal [facility] Comment on above: Result Comment: ADA RECOMMENDED LIMIT 4.0 - 6.0 ADA THERAPEUTIC TARGET < 7.0 ACTION SUGGESTED > 7.0 Performed By: #### C VDAGS #### [facility] [address] [place] [address] Dr. Ashlie Hills Glucose [Mass/Vol] 295 mg/dL Normal [facility] Comment on above: Performed By: #### C VDAGS #### [facility] [address] [address] [address] Ashlie Hills HbA1c (Bld) [Mass fraction] 11.9 % Critically high 4.5-6.2 [facility] Comment on above: Performed By: #### C VDAGS #### [facility] [address] [place] [address] Dr. Ashlie Hills HEMOGRAM AND PLATELon 2021 Hematocrit (Bld) [Volume fraction] 56.3 % Critically high 36.0-48.0 [facility] Comment on above: Performed By: #### C VDAGS #### [facility] [address] [place] [address] Dr. Ashlie Hills Hemoglobin (Bld) [Mass/Vol] 18.0 g/dL Critically high 12.0-16.0 [facility] Comment on above: Performed By: #### C VDAGS #### [facility] [address] [address] [address] Ashlie Hills MCH (RBC) [Entitic mass] 29.5 pg Normal 26.7-34.0 [facility] Comment on above: Performed By: #### C VDAGS #### [facility] [address] [place] [address] Dr. Ashlie Hills MCHC (RBC) [Mass/Vol] 32.0 g/dL Normal 29.9-35.2 [facility] Comment on above: Performed By: #### C VDAGS #### [facility] [address] [place] [address] Dr. Ashlie Hills MCV (RBC) [Entitic vol] 92.1 fL Normal 81.0-99.0 [facility] Comment on above: Performed By: #### C VDAGS #### [facility] [address] [address] [address] Ashlie Hills PLT 123 103/ul Critically low 150-450 [facility] Comment on above: Performed By: #### C VDAGS #### [facility] [address] [address] [address] Ashlie Hills RBC 6.11 106/ul Critically high 4.20-5.40 [facility] Comment on above: Performed By: #### C VDAGS #### [facility] [address] [address] [address] Ashlie Hills WBC 16.4 103/ul Critically high 4.0-11.0 [facility] Comment on above: Performed By: #### C VDAGS #### [facility] [address] [place] [address] Dr. Ashlie Hills LIPID PROFILEon 03-03-2022 CHOL-HDL RATIO NORM SEE BELOW Normal [facility] Comment on above: Result Comment: 3.3 - 4.4 LOW RISK 4.4 - 7.1 AVERAGE RISK 7.1 - 11.0 MODERATE RISK >11.0 HIGH RISK Performed By: #### C VDAGS #### [facility] [address] [place] [address] Dr. Ashlie Hills Cholesterol [Mass/Vol] 159 mg/dL Normal <=200 [facility] Comment on above: Performed By: #### C VDAGS #### [facility] [address] [place] [address] Dr. Ashlie Hills Cholesterol in HDL [Mass/Vol] 40 mg/dL Normal 40-60 [facility] Comment on above: Performed By: #### C VDAGS #### [facility] [address] [address] [address] Ashlie Hills Cholesterol in LDL [Mass/Vol] 81.8 mg/dL Normal [facility] Comment on above: Performed By: #### C VDAGS #### [facility] [address] [address] [address] Ashlie Hills Cholesterol.total/Ch olesterol in HDL [Mass ratio] 4.0 {ratio} Normal [facility] Comment on above: Performed By: #### C VDAGS #### [facility] [address] [address] [address] Ashlie Hills HDL NORMAL > or = 60 mg/dl - LOW CARDIOVASCULAR RISK <40 mg/dl - HIGH CARDIOVASCULAR RISK Normal [facility] Comment on above: Performed By: #### C VDAGS #### [facility] [address] [address] [address] Ashlie Hills LDL CALC NORMAL SEE BELOW Normal [facility] Comment on above: Result Comment: <100 mg/dl OPTIMAL 100 - 129 mg/dl NEAR OR ABOVE OPTIMAL 130 - 159 mg/dl BORDERLINE HIGH 160 - 189 mg/dl HIGH >190 mg/dl VERY HIGH Performed By: #### C VDAGS #### [facility] [address] [place] [address] Dr. Ashlie Hills Triglyceride [Mass/Vol] 186 mg/dL Critically high <=150 [facility] Comment on above: Performed By: #### C VDAGS #### [facility] [address] [place] [address] Dr. Ashlie Hills VLDL CALC 37.2 mg/dL Normal [facility] Comment on above: Performed By: #### C VDAGS #### [facility] [address] [address] [address] Ashlie Hills RENAL FUNCTION PANELon 03-03 Albumin [Mass/Vol] 3.1 g/dL Critically low 3.4-5.[address] [facility] Comment on above: Performed By: #### C BC #### [facility] [address] [address] [address] Ashlie Hills Calcium [Mass/Vol] 9.2 mg/dL Normal 8.5-10.1 [facility] Comment on above: Performed By: #### C BC #### [facility] [address] [address] [address] Ashlie Hills Chloride [Moles/Vol] 102 mmol/L Normal 98-107 [facility] Comment on above: Performed By: #### C BC #### [facility] [address] [address] [address] Ashlie Hills CO2 [Moles/Vol] 31.9 mmol/L Normal 21.0-32.0 [facility] [facility] Comment on above: Performed By: #### C BC #### [facility] [address] [place] [address] Dr. Ashlie Hills Creatinine [Mass/Vol] 0.68 mg/dL Normal 0.55-1.02 [facility] Comment on above: Performed By: #### C BC #### [facility] [address] [place] [address] Dr. Ashlie Hills EGFR-AF FIJIAN >60 Normal >=60 [facility] Comment on above: Performed By: #### C BC #### [facility] [address] [place] [address] Dr. Ashlie Hills EGFR-NON AF FIJIAN >60 Normal >=60 [facility] Comment on above: Performed By: #### C BC #### [facility] [address] [place] [address] Dr. Ashlie Hills Glucose [Mass/Vol] 131 mg/dL Critically high 74-106 [facility] Comment on above: Performed By: #### C BC #### [facility] [address] [place] [address] Dr. Ashlie Hills Phosphate [Mass/Vol] 4.0 mg/dL Normal 2.6-4.7 [facility] Comment on above: Performed By: #### C BC #### [facility] [address] [place] [address] Dr. Ashlie Hills Potassium [Moles/Vol] 4.0 mmol/L Normal 3.5-5.1 [facility] Comment on above: Performed By: #### C BC #### [facility] [address] [place] [address] Dr. Ashlie Hills Sodium [Moles/Vol] 141 mmol/L Normal 136-145 [facility] Comment on above: Performed By: #### C BC #### [facility] [address] [place] [address] Dr. Ashlie Hills Urea nitrogen [Mass/Vol] 17.0 mg/dL Normal 7.0-18.0 [facility] Comment on above: Performed By: #### C BC #### [facility] [address] [place] [address] Dr. Ashlie Hills UA RANDOM W/MICROSCOPICon BACTERIA NONE SEEN Normal NONE SEEN [facility] Comment on above: Performed By: #### I NFLUAB #### [facility] [address] [place] [address] Dr. Ashlie Hills Bilirubin Ql (U) Negative Normal NEGATIVE [facility] Comment on above: Performed By: #### I NFLUAB #### [facility] [address] [place] [address] Dr. Ashlie Hills CAST NONE SEEN Normal NONE SEEN [facility] Comment on above: Performed By: #### I NFLUAB #### [facility] [address] [place] [address] Dr. Ashlie Hills Clarity (U) CLEAR Normal CLEAR [facility] Comment on above: Performed By: #### I NFLUAB #### [facility] [address] [place] [address] Dr. Ashlie Hills Color (U) YELLOW Normal YELLOW [facility] Comment on above: Performed By: #### I NFLUAB #### [facility] [address] [place] [address] Dr. Ashlie Hills Crystals LM Nom (Urine sed) NONE SEEN Normal NONE SEEN [facility] Comment on above: Performed By: #### I NFLUAB #### [facility] [address] [place] [address] Dr. Ashlie Hills Epithelial cells LM Ql (Urine sed) FEW Abnormal NONE SEEN /RARE [facility] Comment on above: Performed By: #### I NFLUAB #### [facility] [address] [place] [address] Dr. Ashlie Hills Glucose Ql (U) Negative Normal NEGATIVE [facility] Comment on above: Performed By: #### I NFLUAB #### [facility] [address] [place] [address] Dr. Ashlie Hills Hemoglobin Ql (U) Negative Normal NEGATIVE [facility] Comment on above: Performed By: #### I NFLUAB #### [facility] [address] [address] [address] Ashlie Hills Ketones Ql (U) Negative Normal NEGATIVE [facility] Comment on above: Performed By: #### I NFLUAB #### [facility] [address] [address] [address] Ashlie Hills LEUKOCYTES Negative Normal NEGATIVE [facility] Comment on above: Performed By: #### I NFLUAB #### [facility] [address] [place] [address] Dr. Ashlie Hills MUCOUS NONE SEEN Normal NONE SEEN [facility] Comment on above: Performed By: #### I NFLUAB #### [facility] [address] [place] [address] Dr. Ashlie Hills Nitrite Ql (U) Negative Normal NEGATIVE [facility] Comment on above: Performed By: #### I NFLUAB #### [facility] [address] [place] [address] Dr. Ashlie Hills pH (U) 5.5 [pH] Normal 5-9 [facility] Comment on above: Performed By: #### I NFLUAB #### [facility] [address] [place] [address] Dr. Ashlie Hills RBC 0-2 Normal 0-2 [facility] Comment on above: Performed By: #### I NFLUAB #### [facility] [address] [place] [address] Dr. Ashlie Hills SPEC GRAVITY >=1.030 Abnormal 1.005-<=1.025 [facility] Comment on above: Performed By: #### I NFLUAB #### [facility] [address] [place] [address] Dr. Ashlie Hills UA PROTEIN 100 mg/dl Abnormal NEGATIVE/ TRACE [facility] Comment on above: Performed By: #### I NFLUAB #### [facility] [address] [place] [address] Dr. Ashlie Hills Urobilinogen Qn (U) 0.2 {Little'U}/dL Normal 0.2 - 1. 0 [facility] Comment on above: Performed By: #### I NFLUAB #### [facility] [address] [place] [address] Dr. Ashlie Hills WBC NONE SEEN Normal NONE SEEN [facility] Comment on above: Performed By: #### I NFLUAB #### [facility] [address] [place] [address] Dr. Ashlie Hills URIC ACID SERUMon 03-03-2022 Urate [Mass/Vol] 5.0 mg/dL Normal 2.6-6.0 [facility] Comment on above: Performed By: #### I NFLUAB #### [facility] [address] [place] [address] Dr. Ashlie Hills URINE T PROTEIN CREAT RATIOo n 03-03-2022 Protein (U) [Mass/Vol] 77.9 mg/dL Critically high <=12.0 [facility] Comment on above: Performed By: #### C VDAGS #### [facility] [address] [place] [address] Dr. Ashlie Hills UR PROT CREAT RAT 0.44 Normal [facility] Comment on above: Performed By: #### C VDAGS #### [facility] [address] [place] [address] Dr. Ashlie Hills URINE CREAT 175.15 mg/dL Normal 20.00-300.00 [facility] Comment on above: Performed By: #### C VDAGS #### [facility] [address] [place] [address] Dr. Ashlie Hills Consultation Noteon 02-23-20 22 Consultation Note [id number] #1.00CD:[address] [facility] Formson 02-10-2022 Forms [id number] #1.00CD:[address] [facility] Physician Referralon Physician Referral [id number] #1.00CD:[address] 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 Your Care Team Attending Physician - Elbert VARGAS MD Primary Care Physician - MCKAYLA BLAS CNP [...] Urology [address], [place] [address]- [phone] Medications What How Much When Instructions Unchanged [...] Urnls Dip Stick Auto w/o Microscopy POC 25324 (02/06/2022) Bilirubin Urine Dipstick - Negative Blood Urine Dipstick - Negative Glucose Urine Dipstick - 2+ 500 mg/dl Ketones Urine Dipstick - Negative Leukocytes Urine Dipstick - Negative Nitrite Urine Dipstick - Negative Protein Urine Dipstick - 3+ (300 mg/dl) Specific [place] Urine Dipstick - >=1.030 Urine Appearance Urine [...] is caused (more content not included)... Normal [facility] Patient Educationon 02-07-20 Patient Education Obstetrics [...] Take ove (more content not included)... Normal [facility] Urology Office/Clinic Noteon 02-06-2022 Urology Office/Clinic [...] of protein. Recommended pt to see a necktie maker due to high protein levels in the urine. All questions/concerns were discussed. Pt to call office if she encounters any issues prior. Pt acknowledges understanding. Other obstructive and reflux uropathy (N13.8: Other obstructive and reflux uropathy) Follow-up With When Contact Information Elbert VARGAS MD, URL In 6 months [facility] [address] [place] [address]- [phone] Additional Instructions: w/ repeat CT A/P Patient [...] flank pain (more content not included)... Normal [facility] Comment on above: Result Comment: Elec tronically Signed By: Elbert VARGAS MD\.br\Date and Time Signed: 02/06/22 11:45 EDT\.br\Electronically Co-Signed By: Enedelia Mendoza\.br\Date and Time Co-Signed: 02/06/22 11:42 EDT CULTURE URINEon 12-25-2021 CULTURE URINE Culture Observations: GREATER THAN TWO ORGANISMS PRESENT, HEAVILY MIXED. PLEASE RESUBMIT CLEAN CATCH MID-STREAM URINE IF CLINICALLY INDICATED. Normal [facility] Comment on above: Performed By: #### I NFLUAB #### [facility] [address] [address] [address] Ashlie Hills CBC AUTO DIFFon 12-24-2021 BASO # 0.1 103/ul Normal 0.0-0.1 [facility] Comment on above: Performed By: #### C BC #### [facility] [address] [address] [address] Ashlie Hills Basophils/100 WBC (Bld) 0.5 % Normal 0.2-2.0 [facility] Comment on above: Performed By: #### C BC #### [facility] [address] [address] [address] Ashlie Hills EO # 0.4 103/ul Normal 0.0-0.7 [facility] Comment on above: Performed By: #### C BC #### [facility] [address] [place] [address] Dr. Ashlie Hills Eosinophils/100 WBC (Bld) 2.4 % Normal 0.9-7.0 [facility] Comment on above: Performed By: #### C BC #### [facility] [address] [place] [address] Dr. Ashlie Hills Erythrocyte distribution width (RBC) [Ratio] 14.1 % Normal 11.0-15.0 [facility] Comment on above: Performed By: #### C BC #### [facility] [address] [place] [address] Dr. Ashlie Hills Hematocrit (Bld) [Volume fraction] 55.9 % Critically high 36.0-48.0 [facility] Comment on above: Performed By: #### C BC #### [facility] [address] [place] [address] Dr. Ashlie Hills Hemoglobin (Bld) [Mass/Vol] 17.9 g/dL Critically high 12.0-16.0 [facility] Comment on above: Performed By: #### C BC #### [facility] [address] [place] [address] Dr. Ashlie Hills IG # 0.06 10e3/ul Critically high 0.00-0.03 [facility] Comment on above: Performed By: #### C BC #### [facility] [address] [place] [address] Dr. Ashlie Hills IG % 0.4 % Normal 0.0-0.5 [facility] Comment on above: Performed By: #### C BC #### [facility] [address] [place] [address] Dr. Ashlie Hills LYMPH # 5.8 103/ul Critically high 1.2-3.8 [facility] Comment on above: Performed By: #### C BC #### [facility] [address] [place] [address] Dr. Ashlie Hills Lymphocytes/100 WBC (Bld) 35.4 % Normal 20.5-60.0 [facility] Comment on above: Performed By: #### C BC #### [facility] [address] [place] [address] Dr. Ashlie Hills MANUAL DIFF REQ NO Normal [facility] Comment on above: Performed By: #### C BC #### [facility] [address] [place] [address] Dr. Ashlie Hills MCH (RBC) [Entitic mass] 29.4 pg Normal 26.7-34.0 [facility] Comment on above: Performed By: #### C BC #### [facility] [address] [place] [address] Dr. Ashlie Hills MCHC (RBC) [Mass/Vol] 32.0 g/dL Normal 29.9-35.2 [facility] Comment on above: Performed By: #### C BC #### [facility] [address] [place] [address] Dr. Ashlie Hills MCV (RBC) [Entitic vol] 91.8 fL Normal 81.0-99.0 [facility] Comment on above: Performed By: #### C BC #### [facility] [address] [place] [address] Dr. Ashlie Hills MONO # 0.8 103/ul Normal 0.3-0.8 [facility] Comment on above: Performed By: #### C BC #### [facility] [address] [place] [address] Dr. Ashlie Hills Monocytes/100 WBC (Bld) 4.8 % Normal 1.7-12.0 [facility] Comment on above: Performed By: #### C BC #### [facility] [address] [place] [address] Dr. Ashlie Hills NEUT # 9.3 103/ul Critically high 1.4-6.5 [facility] Comment on above: Performed By: #### C BC #### [facility] [address] [place] [address] Dr. Ashlie Hills Neutrophils/100 WBC (Bld) 56.5 % Normal 43.0-75.0 [facility] Comment on above: Performed By: #### C BC #### [facility] [address] [place] [address] Dr. Ashlie Hills Platelet mean volume (Bld) [Entitic vol] 12.9 fL Normal 9.5-13.5 [facility] Comment on above: Performed By: #### C BC #### [facility] [address] [address] [address] Ashlie Hills PLT 127 103/ul Critically low 150-450 [facility] Comment on above: Performed By: #### C BC #### [facility] [address] [place] [address] Dr. Ashlie Hills RBC 6.09 106/ul Critically high 4.20-5.40 [facility] Comment on above: Performed By: #### C BC #### [facility] [address] [place] [address] Dr. Ashlie Hills WBC 16.4 103/ul Critically high 4.0-11.0 [facility] Comment on above: Performed By: #### C BC #### [facility] [address] [place] [address] ABD/PELVIS WO CONon [...] Severe right hip degenerative change. Normal [facility] URINE PROFILEon 2 Bilirubin Ql (U) Negative Normal NEGATIVE [facility] Comment on above: Performed By: #### Tracey LYMAN UMICRO #### [facility] [address] [place] [address] Dr. Ashlie Hills Clarity (U) CLEAR Normal CLEAR [facility] Comment on above: Performed By: #### E RUR UMICRO #### [facility] [address] [place] [address] Dr. Ashlie Hills Color (U) DK. ORANGE Abnormal YELLOW [facility] Comment on above: Performed By: #### Tracey LYMAN UMICRO #### [facility] [address] [place] [address] Dr. Ashlie HOBBS A micrscopic examination will be performed if indicated. Normal [facility] Comment on above: Performed By: #### Tracey RUMahnaz UMICRO #### [facility] [address] [place] [address] Dr. Ashlie Hills Glucose Ql (U) 250 mg/dl Abnormal NEGATIVE [facility] Comment on above: Performed By: #### Tracey RUR UMICRO #### [facility] [address] [place] [address] Dr. Ashlie Hills Hemoglobin Ql (U) Negative Normal NEGATIVE [facility] Comment on above: Performed By: #### Tracey RUR UMICRO #### [facility] [address] [place] [address] Dr. Ashlie Hills Ketones Ql (U) Negative Normal NEGATIVE [facility] Comment on above: Performed By: #### Tracey RUR UMICRO #### [facility] [address] [place] [address] Dr. Ashlie Hills LEUKOCYTES Negative Normal NEGATIVE [facility] Comment on above: Performed By: #### E RUR, UMICRO #### [facility] [address] [place] [address] Dr. Ashlie Hills Nitrite Ql (U) Negative Normal NEGATIVE [facility] Comment on above: Performed By: #### E RUR UMICRO #### [facility] [address] [place] [address] Dr. Ashlie Hills pH (U) 5.0 [pH] Normal 5-9 [facility] Comment on above: Performed By: #### Tracey LYMAN UMICRO #### [facility] [address] [address] [address] Ashlie Hills Protein (U) [Mass/Vol] 100 mg/dL Abnormal NEGATIVE/ TRACE [facility] Comment on above: Performed By: #### Tracey LYMAN UMICRO #### [facility] [address] [place] [address] Dr. Ashlie Hills SPEC GRAVITY >=1.030 Abnormal 1.005-<=1.025 [facility] Comment on above: Performed By: #### MADELINE DIAZRO #### [facility] [address] [place] [address] Dr. Ashlie Hills UR MICRO IND INDICATED Normal [facility] Comment on above: Performed By: #### Tracey LYMAN UMICRO #### [facility] [address] [place] [address] Dr. Ashlie Hills Urobilinogen Qn (U) 1.0 {Little'U}/dL Normal 0.2 - 1. 0 [facility] Comment on above: Performed By: #### Tracey LYMAN UMHARRIETRO #### [facility] [address] [place] [address] Dr. Ashlie Hills PROF CHEM 8 (BAS METB)on Anion gap [Moles/Vol] 12.1 mmol/L Normal [facility] Comment on above: Performed By: #### I NFLUAB #### [facility] [address] [place] [address] Dr. Ashlie Hills Calcium [Mass/Vol] 9.0 mg/dL Normal 8.5-10.1 [facility] Comment on above: Performed By: #### I NFLUAB #### [facility] [address] [place] [address] Dr. Ashlie Hills Chloride [Moles/Vol] 101 mmol/L Normal 98-107 [facility] Comment on above: Performed By: #### I NFLUAB #### [facility] [address] [address] [address] Ashlie Hills CO2 [Moles/Vol] 29.1 mmol/L Normal 21.0-32.0 [facility] Comment on above: Performed By: #### I NFLUAB #### [facility] [address] [address] [address] Ashlie Hills Creatinine [Mass/Vol] 0.86 mg/dL Normal 0.55-1.02 [facility] Comment on above: Performed By: #### I NFLUAB #### [facility] [address] [place] [address] Dr. Ashlie Hills EGFR-AF FIJIAN >60 Normal >=60 [facility] Comment on above: Performed By: #### I NFLUAB #### [facility] [address] [address] [address] Ashlie Hills EGFR-NON AF FIJIAN >60 Normal >=60 [facility] Comment on above: Performed By: #### I NFLUAB #### [facility] [address] [address] [address] Ashlie Hills Glucose [Mass/Vol] 236 mg/dL Critically high 74-106 [facility] Comment on above: Performed By: #### I NFLUAB #### [facility] [address] [address] [address] Ashlie Hills Potassium [Moles/Vol] 4.2 mmol/L Normal 3.5-5.1 [facility] Comment on above: Performed By: #### I NFLUAB #### [facility] [address] [address] [address] Ashlie Hills Sodium [Moles/Vol] 138 mmol/L Normal 136-145 [facility] Comment on above: Performed By: #### I NFLUAB #### [facility] [address] [address] [address] Ashlie Hills Urea nitrogen [Mass/Vol] 11.0 mg/dL Normal 7.0-18.0 [facility] Comment on above: Performed By: #### I NFLUAB #### [facility] [address] [place] [address] Dr. Ashlie Hills Urea nitrogen/Creatinine [Mass ratio] 12.8 mg/mg Normal [facility] Comment on above: Performed By: #### I NFLUAB #### [facility] [address] [place] [address] Dr. Ashlie Hills URINE MICROSCOPIC ONLYon BACTERIA SMALL Abnormal NONE SEEN [facility] Comment on above: Performed By: #### E RUR, UMICRO #### [facility] [address] [place] [address] Dr. Ashlie Hills Bacteria identified Cx Nom (U) INDICATED Normal [facility] Comment on above: Performed By: #### E RUR, UMICRO #### [facility] [address] [place] [address] Dr. Ashlie Hills CAST NONE SEEN Normal NONE SEEN [facility] Comment on above: Performed By: #### E RUR, UMICRO #### [facility] [address] [place] [address] Dr. Ashlie Hills Crystals LM Nom (Urine sed) NONE SEEN Normal NONE SEEN [facility] Comment on above: Performed By: #### E JIMMYR, UMICRO #### [facility] [address] [place] [address] Dr. Ashlie Hills Epithelial cells LM Ql (Urine sed) MODERATE Abnormal NONE SEEN /RARE [facility] Comment on above: Performed By: #### E RUR, UMICRO #### [facility] [address] [place] [address] Dr. Ashlie Hills MUCOUS NONE SEEN Normal NONE SEEN [facility] Comment on above: Performed By: #### E RUR, UMICRO #### [facility] [address] [place] [address] Dr. Ashlie Hills RBC 0-2 Normal 0-2 [facility] Comment on above: Performed By: #### E JIMMYR, UMICRO #### [facility] [address] [place], [place] [id number] Dr. Ashlie Hills WBC 0-2 Abnormal NONE SEEN [facility] Comment on above: Performed By: #### E EVONNE LYMAN #### [facility] [address] [place] [address] Dr. Ashlie Hills YEAST PRESENT Abnormal NONE SEEN [facility] Comment on above: Performed By: #### E EVONNE LYMAN #### [facility] [address] [place] [address] Dr. Ashlie Hills HIP RIGHT 1 OR 2 VWS WITH PE LVISon 07-20-2020 HIP RIGHT 1 OR [address] [facility] Department of Radiology [address] [place] [address] Patient Name: MITZI MACIAS : [...] MRI. Electronically signed: Pipo Acevedo. Transcribed by: [email or web address], User Resident: Electronically Signed by: PIPO ACEVEDO @ 07/20/2020 03:45 PM Normal [facility] Comment on above: Order Comment: evalu ate Vital Signs Date Time Vital Sign Value Performing Clinician Facility 03-08-2022 15:00-0400 Body height 170.18 cm Stephanie Tico Other [facility] [employer] Other 03-08-2022 15:00-0400 Body temperature 97.6 [degF] Stephanie Tico Other [employer] Other 03-08-2022 15:00-0400 Diastolic blood pressure 72 mm[Hg] Stephanie Tico Other [employer] Other 03-08-2022 15:00-0400 Respiratory rate 20 /min Stephanie Tico Other [employer] Other 03-08-2022 15:00-0400 SaO2% (BldA) [Mass fraction] 91 % Stephanie Tico Other [employer] Other 03-08-2022 15:00-0400 Systolic blood pressure 131 mm[Hg] Stephanie Tico Other [employer] Other 02-20-2022 09:20-0400 Body height 170.18 cm Stephanie Tico Other [employer] Other 02-20-2022 09:20-0400 Body temperature 96.5 [degF] Stephanie Tico Other [employer] Other 02-20-2022 09:20-0400 Diastolic blood pressure 69 mm[Hg] Stephanie Tico Other [employer] Other 02-20-2022 09:20-0400 Respiratory rate 20 /min Stephanie Tico Other [employer] Other 02-20-2022 09:20-0400 SaO2% (BldA) [Mass fraction] 91 % Stephanie Tico Other [employer] Other 02-20-2022 09:20-0400 Systolic blood pressure 129 mm[Hg] Stephanie Tico Other [employer] Other 02-06-2022 10:24-0400 Blood Pressure Location Elbert Dheere Bolo [facility] [employer] 02-06-2022 10:24-0400 Diastolic blood pressure 76 mm[Hg] Elbert VARGAS [facility] [place] [place] 02-06-2022 10:24-0400 Heart rate 70 /min Elbert VARGAS [facility] [place] 02-06-2022 10:24-0400 Respiratory rate 16 /min Elbert VARGAS [facility] [place] 02-06-2022 10:24-0400 Systolic blood pressure 134 mm[Hg] Elbert VARGAS [facility] [place] [place] Encounters Encounter Date Encounter Type Care Provider Facility Start: 04-22-2024 ambulatory GAVIOTA VEGA Facili ty:[facility] Start: 11-01-2023 End: 11-01-2023 ambulatory MCKAYLA AICHHOLZ Not Available Start: 09-27-2023 End: 09-27-2023 ambulatory MCKAYLA AICHHOLZ Not Available Start: 08-17-2023 Refill Mckayla Aichholz COMMERCIAL CREDIT REVIEWER Work Phone: [facility] Comment on above: Vaginal yeast infect ion (Primary Dx) Start: 08-14-2023 Refill Mckayla Aichholz COMMERCIAL CREDIT REVIEWER Work Phone: [facility] Comment on above: Type 2 diabetes asiya itus with unspecified complications ([facility]); Edema, unspecified; Edema Start: 07-10-2023 End: 07-10-2023 ambulatory MCKAYLA AICHHOLZ Not Available Start: 12-05-2022 ambulatory NARENDRANATH LAKSHMIPATHY . Facility: Start: 12-05-2022 End: 12-06-2022 Evaluation and management of inpatient UMBERTO HEALYP . Facility:[facility]1 Start: 11-23-2022 End: 11-23-2022 ambulatory CLIENT MANAGER LARGE LAW MCKAYLA AICHHOLZ Facility: Start: 11-22-2022 End: 11-23-2022 ambulatory CLIENT MANAGER LARGE LAW MCKAYLA AICHHOLZ Facility: Start: 11-17-2022 End: 11-18-2022 ambulatory SUBHASH GASPAR . Facility: Start: 11-15-2022 End: 11-16-2022 ambulatory GAVIOTA VEGA Facility:[facility] [place] Start: 11-15-2022 End: 11-15-2022 Patient encounter procedure GAVIOTA VEGA [facility] [place] [place] Start: 10-05-2022 End: 10-05-2022 ambulatory MARIANO DIAB . Facility:[facility] Start: 09-21-2022 End: 09-21-2022 ambulatory CLIENT MANAGER LARGE LAW MCKAYLA AICHHOLZ Facility:[facility] Start: 09-14-2022 ambulatory RAFAEL GONGORA Facilit y:H1 Start: 08-24-2022 End: [address] CHAPARRO MORTENSEN . Facility:[facility]1 Start: 08-21-2022 End: 08-22-2022 [facility] Start: 07-27-2022 End: 07-28-2022 ambulatory CECILIA BJORNRUCHI . Facility:[facility] Start: 07-18-2022 End: 07-19-2022 ambulatory CECILIA SILVESTRETray . Facility:[facility]1 Start: 07-18-2022 End: 07-19-2022 ambulatory HATTIE Braulio BRODERICK Facility:[facility]1 Start: 07-06-2022 End: 07-06-2022 ambulatory SAYDA BLAS Facility:[facility] Start: 05-11-2022 End: 05-12-2022 ambulatory GIL VALENZUELA . Facility:[facility] Start: 04-25-2022 End: 04-25-[address] CHAPARRO MORTENSEN . Facility:[facility]1 Start: 04-20-2022 End: 04-21-2022 ambulatory GIL VALENZUELA . 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 Facility:[facility]1 Start: 01-05-2022 ambulatory GAVIOTA VEGA Facility :[facility] [place] Start: 12-24-2021 End: 12-24-2021 ambulatory OLE RAMIREZ Facility: Start: 08-26-2020 End: 09-10-2020 Patient encounter procedure MARY TAVERAS Facility:[facility] Start: 10-30-2019 End: 10-30-2019 Emergency department patient visit JAMES Reis Amaury [facility] Start: 10-30-2019 End: 10-30-2019 Emergency department patient visit James Desouza [facility] Emergency Department Start: 11-02-2016 Preoperative state Stephanie Tico Other [employer] Other Procedures Date Procedure Procedure Detail Performing Clinician Start: 11-22-2022 Mammography Mckayla clifford NP Work Phone: Start: 10-08-2015 Microscopic observat ion [Identifier] in Cervix by Cyto stain Mckayla Blas NP Work Phone: H/O: hysterectomy Elbert LARA Laparoscopic cholecystectomy Elbert VARGAS Operative procedure on foot Elbert VARGAS Plan of Treatment Date Care Activity Detail Author Start: 08-03-2025 Screening for malign ant neoplasm of colon [facility] Start: 11-24-2023 Urine screening for protein Diabetes: Urine Protein Screening [facility] Start: 11-23-2023 Screening for malign ant neoplasm of breast Mammogram [facility] Start: 10-15-2023 End: 10-15-2023 Patient encounter procedure 10/15/2023 4:30 PM EDT Office Visit [facility] [address] [place] [id number] Mckayla Blas NP [address] [place] [id number] [facility] Start: 08-09-2023 Hemoglobin A1c measurement Diabetes: Hemoglobin A1C [facility] Start: 05-27-2021 Glaucoma screening Diabetes: R etinopathy Screening [facility] Start: 03-09-2020 Influenza vaccination Flu vacc ine (Season Ended) [place], [place] Start: 10-07-2018 Screening for malign ant neoplasm of cervix [facility] Start: 2010 Lipid panel Lipid screen [place], [place] Start: 2000 Screening for malign ant neoplasm of cervix HPV/Cotest [facility] Start: 1991 Screening for malign ant neoplasm of cervix Cervical cancer screen [place], [place] Start: 1989 DTaP/Tdap/Td vaccine (1 - Tdap) DTaP/Tdap/Td vaccine ( - Tdap) [place], [place] Start: 1985 HIV screening HIV screen [place], [place] Start: 1970 Medicare Annual Well ness (AWV) Medicare Annual Wellness (AWV) [facility] Start: 1970 Screening for malign ant neoplasm of colon [facility] Immunizations Immunization Date Immunization Notes Care Provider [facility] 05-18-2023 influenza, injectabl e, quadrivalent, contains preservative Mckayla Blas NP Work Phone: [facility] 07-19-2021 SARS-CoV-2 (COVID-19 ) mRNA BNT-162b2 vax GAVIOTA SILVIA [facility] 10-28-2020 SARS-CoV-2 (COVID-19 ) mRNA BNT-162b2 vax GAVIOTA SILVIA [facility] 10-08-2020 SARS-CoV-2 (COVID-19 ) mRNA BNT-162b2 vax GAVIOTA SILVIA [facility] Payers Date Payer Category Payer Medicare [id number] 2018 Medicaid MEDICAID [facility] [id number] 2018-Present [phone] [address] [place] [address] Medicaid [id number] 2017 Medicare [employer] MEDICARE UHC DUAL COMPLETE [id number] 2017-Present [address] [place] [address] [id number]. [id number] 1970 Unknown [id number] 2.16.840.1.126368.3.579.2. 647 1970 Unknown [id number] 2.16.840.1.280558.3.579.2. 727 1970 Unknown [id number] 2.16.840.1.125808.3.579.2. 727 1970 Unknown [id number] 2.16.840.1.566132.3.579.2. 727 1970 Unknown [id number] 2.16.840.1.722982.3.579.2. 727 1970 Unknown [id number] 2.16.840.1.134738.3.579.2. 593 1970 Unknown [id number] 2.16.840.1.335896.3.579.2. 593 1970 Unknown [id number] 2.16.840.1.012897.3.579.2. 593 1970 Unknown [id number] 2.16.840.1.995566.3.579.2. 593 1970 Unknown [id number] 2.16.840.1.601817.3.579.2. 593 1970 Unknown [id number] 2.16.840.1.507008.3.579.2. 593 1970 Unknown [id number] 2.16.840.1.434837.3.579.2. 593 1970 Unknown [id number] 2.16.840.1.836708.3.579.2. 593 1970 Unknown [id number] 2.16.840.1.248924.3.579.2. 593 1970 Unknown [id number] 2.16.840.1.901651.3.579.2. 593 1970 Unknown [id number] 2.16.840.1.390059.3.579.2. 593 1970 Unknown [id number] 2.16.840.1.343953.3.579.2. 593 1970 Unknown [id number] 2.16.840.1.573708.3.579.2. 593 1970 Unknown [id number] 2.16.840.1.385261.3.579.2. 593 1970 Unknown [id number] 2.16.840.1.346481.3.579.2. 593 1970 Unknown [id number] 2.16.840.1.459466.3.579.2. 593 1970 Unknown [id number] 2.16.840.1.746408.3.579.2. 593 1970 Unknown [id number] 2.16.840.1.046175.3.579.2. 593 1970 Unknown [id number] 2.16.840.1.109674.3.579.2. 593 1970 Unknown [id number] 2.16.840.1.954902.3.579.2. 593 1970 Unknown [id number] 2.16.840.1.532256.3.579.2. 593 1970 Unknown [id number] 2.16.840.1.871417.3.579.2. 593 1970 Unknown [id number] 2.16.840.1.612211.3.579.2. 1259 1970 Unknown [id number] 2.16.840.1.407083.3.579.2. 1259 1970 Unknown [id number] 2.16.840.1.506355.3.579.2. 1259 1959 Medicaid [id number] 1959 Private Health Insurance [id number] 1959 Unknown [id number] 2.16.840.1.398461.19 Social History Date Type Detail Facility Start: 02-17-2014 End: 07-10-2023 Tobacco smoking status NHIS Current every day smoker [place], [place] Start: 02-17-1994 History of tobacco use Cigarette Smo ker [place] Start: 02-17-2014 End: 07-10-2023 Cigarettes smoked current (pack per day) - Reported [place] Start: 02-17-2014 Alcohol intake Current drinke r of alcohol (finding) [place] Start: 02-17-2014 Alcohol Comment Rare [facility] [place], [place] Start: 1970 Sex Assigned At Not on file M [place], [place] Exposure to SARS-CoV -2 (event) Unable to assess [place] Start: 02-06-2022 Tobacco smoking status Smoker (findi ng) [facility] Start: 07-10-2023 Sex Assigned At Female [facility] Start: 11-15-2022 Tobacco smoking status Heavy t obacco smoker (finding) [facility] Start: 07-10-2023 Tobacco use and exposure Smoke less tobacco non-user [facility] Start: 07-10-2023 Alcohol intake Lifetime non-d adrien (finding) [facility] Within the last year , have you been afraid of your partner or ex-partner? No [facility] Do you belong to any clubs or organizations such as pentecostal groups, unions, fraternal or athletic groups, or [...] (one) time each day. Use as instructed [id number] Functional Status Date Assessment Result Facility 11-15-2022 Functional Status N/A [facility] 02-06-2022 Functional Status N/A [facility] Clinical Notes 01-19-2022 to 11-15-2022 Note [...] include: ?8 oz (237 mL) of milk, bappdha-kyglfklheazq-qjlzs milk, and calcium-fortifiedfruit juice. Calcium-fortified means that [...] ?Spinach (cooked), rhubarb, beets, sweet potatoes, and Kyrgyz chard. ?Peanuts. ?Potato chips, australian fries, and baked potatoes with skin on. ?Nuts and nut products. ?Chocolate. If you regularly take a diuretic medicine, make sure to eat at least 1 or 2 servings of fruits or vegetables that are high in potassium each day. These include: ?Avocado. ?Banana. ?Piute, prune, carrot, or tomato juice. ?Baked potato. [...] magnesium, fish oil, or vitamin B6. Take blgb-hga-gouirbf and prescription medicines only as told by [...] Casseroles. Pizza. Lasagna. Frozen meals. Potato chips. Lebanese fries. The items listed above may not [...] provider. Document Revised: 03/06/2022 Document Reviewed: 03/06/2022 [employer] Patient Education 2022 [employer] Follow Up Care 02/06/2022 11:44:09 With:GAVIOTA VEGA PA-C, URL Address: [address] [place] [address] When: Unknown [facility] 08-24-2022 Note CONSULTATION CONSULTATION DATE: 08/24/2022 [...] We maintain her on pain medication with Anna Maria 5/325 t.i.d., diclofenac 75 mg b.i.d. Her [...] her at this point. A refill for Anna Maria 5/325 t.i.d. and diclofenac 75 mg b.i.d. will be sent to the pharmacy. Vitamin compliance and nutrition were discussed and enforced. I did highly encourage her to use exercise bands to increase the strength in her lower extremities. We will see her in three months' time, unless otherwise indicated, and patient agrees. [facility] 05-11-2022 Note CONSULTATION CONSULTATION DATE: 05/11/2022 [...] 150. Medications include Lyrica 300 mg b.i.d., Anna Maria 5/325 t.i.d., diclofenac 75 mg b.i.d. and [...] her medications today. We will maintain Lyrica, Anna Maria and diclofenac at the set dose and frequency. We will follow-up in the clinic in three months' time. The patient is in agreement to this. Vitamin importance and nutrition were discussed. [facility] 04-20-2022 Note CONSULTATION CONSULTATION DATE: 04/20/2022 [...] medications include Tylenol, Lyrica 300 mg b.i.d., Anna Maria 5/325 t.i.d., amitriptyline, diclofenac and duloxetine. Patient's [...] be followed up in the clinic. [facility] 03-08-2022 Evaluation note Encounter Date Diagnosis [...] to the DANIEL. Thrombocytopenia is unclear etiology. [employer] Other 08-15-2022 Evaluation note* Encounter Date Diagnosis [...] takes lisinopril I will continue that. Feb, Kiamni hy kid w cr kid I-IV (ICD-10 [...] follow with Dr. Souza and Dr. Vargas. [employer] Other 08-01-2022 Hospital Discharge instructions Patient Education [...] fried and sweet foods. General instructions Take hhye-jqo-vvjmasz and prescription medicines only as told by [...] 04/21/2010 Document Revised: 10/16/2019 Document Reviewed: 07/11/2018 [employer] Patient Education 2020 [employer] Follow Up Care 01/05/2022 12:02:03 With:REGLA PHIPPS, Elbert Joya, URL Address: [facility] [address], [place] [phone] [phone] When:Within 6 Month(s) Comments:w/ repeat CT A/P [facility] 07-14-2022 NoteCONSULTATION PROCEDURE DATE: 01/19/2022 PRE [...] pattern and the patient tolerated it well. [facility] Signed and Approved by: GIL VALENZUELA . 01/27/2022 14:15:00[facility]07-14-2022 NoteCONSULTATION CONSULTATION DATE: 01/19/2022 This is a [...] today. Medications include Lyrica 300 mg b.i.d., Anna Maria 5/325 t.i.d., diclofenac 75 mg b.i.d. and [...] in three months' time unless otherwise indicated. [facility] Signed and Approved by: GIL VALENZUELA . 01/27/2022 14:15:00[facility] HospitalEvaluation + Plan note Future Appointments Appointment Date:08/14/2022 09:15:00 AM Scheduled Provider:Elbert VARGAS MD Location:[facility] Appointment Type:URO Office Visit [facility] evaluation + Plan note Future Appointments Appointment Date:04/22/2024 10:00:00 AM Scheduled Provider:GAVIOTA VEGA PA-C Location:[facility] Appointment Type:URO Office Visit [facility] evaluation note* Diagnosis Type 2 diabetes mellitus with unspecified complications (CMS/[facility]) Edema, unspecified Edema documented in this encounter [...] History sepsis 2010 Hospitalization History SEE ABOVE [employer] Other Hospital course Narrative No data available for this section [facility] progress note No data available for this section [facility] reason for referral (narrative) , Referral to Dr. 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 Summary Purpose Family History No Family History Records FoundNo Family History Records FoundNo Family History Records FoundNo Family History Records FoundNo Family History Records Found Additional Source Comments INFORMATION SOURCE (unrecogn ized section and content) DATE CREATED AUTHOR 10/30/2019 [facility] DATE CREATED AUTHOR AUTHOR'S ORGANIZ ATION 09/15/2020 [facility] DATE CREATED AUTHOR AUTHOR'S ORGANIZ ATION 11/16/2022 [facility] DATE CREATED AUTHOR AUTHOR'S ORGANIZ ATION 12/19/2022 [facility] DATE CREATED AUTHOR AUTHOR'S ORGANIZ ATION 11/02/2023 [facility] dical Specialists EPIC Care Team (unrecognized sect ion and content) Band Nailer Relationship Specialty Start Date End Date Ty Amin MD PCP - General Family Medicine 01/05/23 Band Nailer Relationship Specialty Start Date End Date Ty [...] BE BASED ON THE PRIMARY CLINICAL RECORDS. [employer] [facility]. provides no warranty or guarantee of the accuracy or completeness of information in this document.
[2023-11-06 08:51] VITALS: BP 121/71; PULSE 88; TEMP 36.5; O2SAT 93
[2023-11-06 08:55] LABS: Glucometer 131 mg/dL (74-106)
[2023-11-06 09:36] VITALS: BP 181/84; PULSE 88; O2SAT 91
[2023-11-06] MEDS: BUPIVACAINE HCL 0.25% PF 25 MG/10 ML VIAL 3 ML INJ (09:38)
[2023-11-06] MEDS: LIDOCAINE HCL 2% 400 MG/20 ML MDV 8 ML INJ (09:39)
[2023-11-06] MEDS: METHYLPREDNISOLONE ACETATE 40 MG/ML VIAL INJ (09:39)
[2023-11-06 09:41] VITALS: BP 163/64; PULSE 90; O2SAT 90
--- NOTE | 2023-11-06 10:14 | W.PM.PROCNOT ---
Date of procedure: 11/06/23 Pre-op diagnosis: Lumbar spondylosis Post-op diagnosis: same as pre-op Procedure: Right Lumbar 4/5, 5/sacral 1 Radiofrequency ablation Under fluoroscopic guidance Rhizotomy was created using radio frequency ablation at 80?C for 90 seconds 1 to 2 lesions created at each site. Post lesioning injection of 2 mL each of 0.25% Marcaine and 2% lidocaine with Depo-Medrol 40mg. 0.5 to 1 mL injected at each site IV in place no If Intravenous fluids: NS at KVO Anesthesia local 2% lidocaine for Anesthesia Other: local Timeout process compliant After informed consent obtained.Patient brought to the procedure room placed in the prone position skin overlying the area was prepped and draped in a sterile fashion using betadine. 25 gauge needle was used to create a skin wheal over each of the targeted areas utilizing 2% lidocaine. A rhizotomy needle with a 10 mm active tip was inserted over each of the anesthetized areas and directed towards each of the medial branches accomplished under fluoroscopic guidance. after encountering the same we had positive sensory stimulation, negative motor stimulation was noted. lesions were then created. Post lesioning, steroid solution was injected needles removed. Patient was transferred to recovery room in stable condition to be discharged home after meeting criteria. Anesthesia: Local Surgeon: Temo Sharp Condition: stable
== END 2023-11-06 09:55 | disposition home or self-care (01) ==
LOC: SURGOUT 08:25
PROVIDERS: PCP Nurse Practitioner; Visit Provider Anesthesiology Pain Medicine
DX: M47.816 Spondylosis without myelopathy or radiculopathy, lumbar region (principal); Z79.4 Long term (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
CPT/HCPCS: 36415; 64635; 64636; 82948; J1010

== ENCOUNTER 2023-11-12 11:11 | Outpatient (OUT) | payer MEDICARE, OTHER, SELFPAY ==
[2023-11-12 11:48] LABS: Basophils Absolute Auto 0.1 10^3/uL (0.0-0.1); Basophils Percent Auto 0.5 % (0.2-2.0); Eosinophils Absolute Auto 0.4 10^3/uL (0.0-0.7); Eosinophils Percent Auto 2.2 % (0.9-7.0); Hematocrit 50.7 % (36.0-48.0); Hemoglobin 15.8 g/dL (12.0-16.0); Immature Granulocytes Abs Auto 0.11 10^3/uL (0.00-0.03); Immature Granulocytes Pct Auto 0.6 % (0.0-0.5); Lymphocytes Absolute Auto 5.1 10^3/uL (1.2-3.8); Lymphocytes Percent Auto 30.1 % (20.5-60.0); Mean Corpuscular HGB Conc 31.2 g/dL (29.9-35.2); Mean Platelet Volume 12.4 fL (9.5-13.5); Monocytes Absolute Auto 0.8 10^3/uL (0.3-0.8); Monocytes Percent Auto 4.9 % (1.7-12.0); Neutrophils Absolute Auto 10.4 10^3/uL (1.4-6.5); Neutrophils Percent Auto 61.7 % (43.0-75.0); Platelet Count 171 10^3/uL (150-450); Red Blood Count 5.45 10^6/uL (4.20-5.40); Red Cell Distribution Width 15.4 % (11.0-15.0); White Blood Count 16.9 10^3/uL (4.0-11.0)
[2023-11-12 11:58] LABS: Creatinine Urine Random 71.01 mg/dL (20.00-300.00); Microalbum Creatinine Ratio Ur 192.9 mg/g (0.0-29.9); Microalbumin Urine Random 13.7 mg/dL (<=30.0)
[2023-11-12 12:19] LABS: Alanine Aminotransferase 19 U/L (14-59); Albumin Globulin Ratio 0.7; Alkaline Phosphatase 69 U/L (46-116); Anion Gap 9.1; Aspartate Amino Transferase 12 U/L (15-37); BUN Creatinine Ratio 33.8; Bilirubin Total 0.3 mg/dL (0.2-1.0); Calcium 9.4 mg/dL (8.5-10.1); Carbon Dioxide 32.9 mmol/L (21.0-32.0); Chloride 103 mmol/L (98-107); Chol HDL Ratio 2.9; Cholesterol 146 mg/dL (<=200); Estimated GFR (African America >60 (>=60); Estimated GFR (Non-African Ame >60 (>=60); Globulin 4.5 g/dL; Glucose 137 mg/dL (74-106); HDL Cholesterol 51 mg/dL (40-60); LDL Cholesterol Calculated 69.6 mg/dL; Sodium 141 mmol/L (136-145); Total Protein 7.5 g/dL (6.4-8.2); Triglycerides 127 mg/dL (<=150); VLDL CHOLESTEROL 25.4 mg/dL
[2023-11-12 12:46] LABS: Bilirubin Urine NEGATIVE (NEGATIVE); Blood Urine LARGE (NEGATIVE); Clarity Urine CLEAR (CLEAR); Color Urine YELLOW (YELLOW); Glucose Urine UA NEGATIVE (NEGATIVE); Ketones Urine NEGATIVE (NEGATIVE); Leukocyte Esterase Urine NEGATIVE (NEGATIVE); Nitrite Urine NEGATIVE (NEGATIVE); Protein Urine TRACE mg/dL (NEG/TRACE); Specific Gravity Urine 1.025 (1.005-1.025); Urine Microscopic Indicated YES; Urobilinogen Urine 0.2 EU/dL (0.2-1.0); pH Urine 5.5 (5.0-9.0)
[2023-11-12 12:56] LABS: Bacteria Urine TRACE #/HPF (NONE SEEN); Cast Seen? NONE SEEN #/LPF (NONE SEEN); Crystals Seen? None Seen #/HPF (None Seen); Mucus Urine NONE SEEN (NONE SEEN); Squamous Epithelial Cell Urine MODERATE #/LPF (NONE/RARE); WBC Urine 0-2 #/HPF (NONE SEEN)
== END 2023-11-12 11:12 | disposition home or self-care (01) ==
LOC: LAB 11:14
PROVIDERS: PCP Nurse Practitioner; Visit Provider Nurse Practitioner
DX: K21.9 Gastro-esophageal reflux disease without esophagitis (principal); E11.59 Type 2 diabetes mellitus with other circulatory complications; E55.9 Vitamin D deficiency, unspecified; Z71.3 Dietary counseling and surveillance; Z79.4 Long term (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; I10 Essential (primary) hypertension; E11.8 Type 2 diabetes mellitus with unspecified complications; Z94.4 Liver transplant status; E78.2 Mixed hyperlipidemia; M10.9 Gout, unspecified
CPT/HCPCS: 36415; 80053; 80061; 81001; 82042; 82043; 82306; 82570; 84100; 84550; 85025

== ENCOUNTER 2023-11-12 11:17 | Outpatient (OUT) | payer MEDICARE, OTHER, SELFPAY | END 2023-11-12 11:18 | disposition home or self-care (01) | LOC: LAB 11:18 | PROVIDERS: PCP Nurse Practitioner; Visit Provider Internal Medicine | DX: E11.59 Type 2 diabetes mellitus with other circulatory complications (principal); E55.9 Vitamin D deficiency, unspecified; Z71.3 Dietary counseling and surveillance; Z79.4 Long term (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 | CPT/HCPCS: 36415; 82042; 82306; 84100 ==

== ENCOUNTER 2023-11-12 14:41 | Outpatient (OUT) | payer MEDICARE, OTHER, SELFPAY | END 2023-11-12 14:42 | disposition home or self-care (01) | LOC: WC 14:42 | PROVIDERS: PCP Nurse Practitioner; Visit Provider Physician Assistant | DX: I87.313 Chronic venous hypertension (idiopathic) with ulcer of bilateral lower extremity (principal); L97.821 Non-pressure chronic ulcer of other part of left lower leg limited to breakdown of skin; L97.811 Non-pressure chronic ulcer of other part of right lower leg limited to breakdown of skin | CPT/HCPCS: 11042; G0463 ==

== ENCOUNTER 2023-11-27 09:23 | Day surgery (SDC) | payer MEDICARE, OTHER, SELFPAY ==
--- OUTSIDE RECORDS SUMMARY | 2023-11-27 09:43 | XMS_ITS | CCD ---
Author Organization [facility] Care Team Providers Care Bone Char Puller Name Role Phone Rufino Desouza Primary Care Provider [phone] RUFINO DESOUZA Primary Care Unavailable SHENDGE, VITHAL Admitting Unavailable SHENDGE, VITHAL Attending Unavailable AICHHOLZ, MCKAYLA Primary Care Unavailable AICHHOLZ, MCKAYLA Referring Unavailable AICHJODIE, MCKAYLA J Primary Care Physician Tico, Stephanie Unavailable GAVIOTA VEGA Attending Unavailable GAVIOTA VEGA Attending Unavailable AICHJODIE, MCKAYLA J Referring Unavailable Elbert VARGAS Attending Unavailable OLE RAMIREZ Attending Unavailable OLE RAMIREZ Consulting Unavailable AICHHOLZ, TRANSPORT MANAGER MCKAYLA Primary Care Unavailable ASHLEY, OLE Admitting Unavailable ANTONY SHRESTHA Consulting Unavailable ALONDRA .UMBERTO Admitting Unavailable ALONDRA .UMBERTO Attending Unavailable AICHHOLZ, TRANSPORT MANAGER MCKAYLA Primary Care Unavailable AFSANEH Loera, DR BOLANOS Consulting Unavailable MARYANNE POWER Consulting Unavailable GLENN KERR Consulting Unavailable YOMAIRA KERR Consulting Unavailable HATTIE GOFF Consulting Unavailable ALONDRA .UMBERTO Consulting Unavailable TICO, STEPHANIE Attending Unavailable TICO, STEPHANIE Consulting Unavailable AICHHOLZ, TRANSPORT MANAGER MCKAYLA Primary Care Unavailable TICO, STEPHANIE Admitting Unavailable REGLA Loera, DR DUMONT Admitting Unavailable AICHHOLZ, TRANSPORT MANAGER MCKAYLA Primary Care Unavailable REGLA ., DR DUMONT Attending Unavailable REGLA ., DR DUMONT Consulting Unavailable COLLIN HUERTAS Consulting Unavailable CECILIA KAUFMAN Admitting Unavailable CECILIA KAUFMAN Attending Unavailable AICHHOLZ, TRANSPORT MANAGER MCKAYLA Primary Care Unavailable RAFAEL GONGORA Attending Unavailable RAFAEL GONGORA Admitting Unavailable AICHHOLZ, TRANSPORT MANAGER MCKAYLA Primary Care Unavailable AICHHOLZ, TRANSPORT MANAGER MCKAYLA Admitting Unavailable AICHHOLZ, TRANSPORT MANAGER MCKAYLA Primary Care Unavailable AICHHOLZ, TRANSPORT MANAGER MCKAYLA Attending Unavailable AICHHOLZ, TRANSPORT MANAGER MCKAYLA Consulting Unavailable LAKSHMIPATHY ., NARENDRANATH Attending Anette vailable LAKSHMIPATHY ., NARENDRANATH Consulting Anette vailable LAKSHMIPATHY ., NARENDRANATH Admitting Anette vailable AICHHOLZ, TRANSPORT MANAGER MCKAYLA Primary Care Unavailable VALENZUELA ., GIL Consulting Unavailable MORTENSEN ., DR CHAPARRO Aguillon Attending Unavailable MORTENSEN ., DR CHAPARRO Aguillon Admitting Unavailable AICHHOLZ, TRANSPORT MANAGER MCKAYLA Primary Care Unavailable VALENZUELA ., GIL Consulting Unavailable MORTENSEN ., DR CHAPARRO Aguillon Admitting Unavailable AICHHOLZ, TRANSPORT MANAGER MCKAYLA Primary Care Unavailable MORTENSEN ., DR CHAPARRO Aguillon Attending Unavailable HALKER ., SUBHASH Consulting Unavailable LAKSHMIPATHY ., NARENDRANATH Admitting Anette vailable LAKSHMIPATHY ., NARENDRANATH Attending Anette vailable AICHHOLZ, TRANSPORT MANAGER MCKAYLA Primary Care Unavailable MORTENSEN ., DR CHAPARRO Aguillon Attending Unavailable MORTENSEN ., DR CHAPARRO Aguillon Admitting Unavailable VALENZUELA ., GIL Consulting Unavailable AICHHOLZ, TRANSPORT MANAGER MCKAYLA Primary Care Unavailable VALENZUELA ., GIL Consulting Unavailable MORTENSEN ., DR CHAPARRO Aguillon Attending Unavailable MORTENSEN ., DR CHAPARRO Aguillon Admitting Unavailable AICHHOLZ, TRANSPORT MANAGER MCKAYLA Primary Care Unavailable HATTIE BRODERICK Attending Unavailable HATTIE BRODERICK Admitting Unavailable AICHHOLZ, TRANSPORT MANAGER MCKAYLA Primary Care Unavailable AICHHOLZ, TRANSPORT MANAGER MCKAYLA Admitting Unavailable AICHHOLZ, TRANSPORT MANAGER MCKAYLA Consulting Unavailable AICHHOLZ, TRANSPORT MANAGER MCKAYLA Primary Care Unavailable AICHHOLZ, TRANSPORT MANAGER MCKAYLA Attending Unavailable AICHHOLZ, TRANSPORT MANAGER MCKAYLA Primary Care Unavailable MISC, DR LESLIE Admitting Unavailable MISC, DR LESLIE Attending Unavailable MISC, DOCTOR Consulting Unavailable DIAB ., MARIANO Admitting Unavailable DIAB ., MARIANO Attending Unavailable DIAB ., MARIANO Consulting Unavailable AICHHOLZ, TRANSPORT MANAGER MCKAYLA Primary Care Unavailable RICCO PICKARD Consulting Unavailable AICHHOLZ, TRANSPORT MANAGER MCKAYLA Admitting Unavailable AICHHOLZ, TRANSPORT MANAGER MCKAYLA Primary Care Unavailable AICHHOLZ, TRANSPORT MANAGER MCKAYLA Attending Unavailable AICHHOLZ, TRANSPORT MANAGER MCKAYLA Consulting Unavailable DR PATRICIA IVAN Consulting Unavailable CECILIA KAUFMAN Attending Unavailable CECILIA KAUFMAN Admitting Unavailable DR PATRICIA IVAN Consulting Unavailable AICHHOLZ, TRANSPORT MANAGER MCKAYLA Primary Care Unavailable CECILIA KAUFMAN Consulting Unavailable FESTUS ., DR CHAPARRO Aguillon Attending Unavailable FESTUS ., DR CHAPARRO Aguillon Consulting Unavailable FESTUS ., DR CHAPARRO Aguillon Admitting Unavailable AICHHOLZ, TRANSPORT MANAGER MCKAYLA Primary Care Unavailable HATTIE BRODERICK Attending Unavailable HATTIE BRODERICK Consulting Unavailable HATTIE BRODERICK Admitting Unavailable AICHHOLZ, TRANSPORT MANAGER MCKAYLA Primary Care Unavailable HATTIE BAUTISTA Consulting Unavailable AICHHOLZ, TRANSPORT MANAGER MCKAYLA Admitting Unavailable AICHHOLZ, TRANSPORT MANAGER MCKAYLA Attending Unavailable AICHHOLZ, TRANSPORT MANAGER MCKAYLA Consulting Unavailable AICHHOLZ, TRANSPORT MANAGER MCKAYLA Primary Care Unavailable Ty Amin MD Primary Care Provider BHARAT AGUILAR Attending Unavailable AICHHOLZ, MCKAYLA Attending Unavailable AICHHOLZ, MCKAYLA Attending Unavailable AICHHOLZ, MCKAYLA Attending Unavailable AICHHOLZ, MCKAYLA Attending Unavailable Allergies Allergy Classification Reported Allergen(s) Allergy Type Date of Onset Reaction(s) Facility (1 source) No Known Medication Allergies; 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: [No Known Medication Allergies] Propensity to adverse reactions (disorder) [facility] Repository Medications Current Medications Medication Drug Class(es) Dates Sig (Normalized) Sig (Original) acetaminophen 325 mg / HYDROcodone bitartrate 5 mg oral tablet (6 sources) Opioid Agonist Start: 02-06-2022 acetaminophen-hydr ocodone 325 mg-5 mg oral tablet Refill(s) 0 Start Date: 02/06/22 Status: Ordered HYDROcodone-acet aminophen ([place]) 5-325 MG tablet 1 tablet 3 (three) times a day as needed for severe pain. 0 Active take 1 tablet by vandana twice daily as needed [place] 5-325 MG 1 tablet as needed Orally [...] every week ergocalciferol (Vitamin D-2) 1.25 MG (42079 UT) capsule Take 1.25 mg by mouth [...] to breakdown of skin] Onset: 09-01-2022 Chronic Congestive heart failure; nonhypertensive (2 sources) Chronic diastolic (congestive) heart failure; 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: [Chronic diastolic (congestive) heart failure] Onset: 11-14-2023 Chronic Diabetes mellitus with complications (20 sources) Disorder of kidney due to diabetes mellitus; 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: [Type 2 diabetes mellitus with diabetic chronic kidney disease] Onset: 02-20-2022 Resolved: 03-08-2022 Chronic Diabetes mellitus without complication (4 sources) Type 2 diabetes mellitus; 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: [Type 2 diabetes mellitus without complications] Onset: 04-27-2022 02-06-2022 Chronic Disorders of lipid metabolism (5 sources) Pure hypercholesterolemia, unspecified; 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: [Hyperlipidemia, unspecified] Onset: 04-06-2022 Chronic Esophageal disorders (1 source) Gastro-esophageal reflux disease without esophagitis; 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: [GERD WITHOUT ESOPHAGITIS] Onset: 12-05-2022 Chronic Essential hypertension (11 sources) Hypertensive disorder; 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: [Essential (primary) hypertension] [...] emt intermediate (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 therapy; 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: [OTH [employer] CURRENT DRUG THERAPY] Onset: 12-05-2022 Episodic Other aftercare (1 source) emt intermediate (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; 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: [RETIREMENT CURRENT USE OF ASPIRIN] Onset: 12-05-2022 Episodic Other aftercare (1 source) emt intermediate (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; 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: [RETIREMENT CURRENT USE OF INSULIN] Onset: 12-05-2022 Episodic Other and ill-defined heart disease (2 sources) Cardiomegaly; 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: [Cardiomegaly] Onset: 11-14-2023 Chronic Other bone disease and musculoskeletal deformities (1 [...] Hypoxemia; 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: [HYPOXEMIA] Onset: 12-05-2022 Episodic Other lower respiratory disease (2 sources) Shortness of breath; 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: [Shortness of breath] Onset: 11-14-2023 Episodic Other nervous system disorders (5 sources) [...] ocumentation in Social History. Unclassified (1 source) INSTR[employer] INJECT NONINSULN ANTIDIAB; 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: [INSTRUMENT REPAIR[employer] INJECT NONINSULN ANTIDIAB] Onset: 12-05-2022 Unclassified (3 [...] Test Name Value Interpretation Reference Range Facility Office Visiton 11-14-2023 Follow-up visit [id number] Mitzi Macias 1970 F Date Provider Department Center 11/14/2023 BHARAT NICOLE [facility] Family History Problem Relation Age of Onset Heart attack Paternal Grandmother Family Status - Relation Status Age at Paternal Grandmother Level of Service:56864 PA OFFICE/OUTPATIENT NEW LOW MDM 30 MINUTES Normal [facility] CBC AUTO DIFFon 12-06-2022 BASO # 0.0 103/ul Normal 0.0-0.1 [facility] Comment on above: Performed By: #### C BC #### [facility] [address] [place] [address] Dr. Ashlie Hills Basophils/100 WBC (Bld) 0.1 % Critically low 0.2-2.0 [facility] Comment on above: Performed By: #### C BC #### [facility] [address] [place] [address] Dr. Ashlie Hills EO # 0.0 103/ul Normal 0.0-0.7 [facility] Comment on above: Performed By: #### C BC #### [facility] [address] [place] [address] Dr. Ashlie Hills Eosinophils/100 WBC (Bld) 0.0 % Critically low 0.9-7.0 [facility] Comment on above: Performed By: #### C BC #### [facility] [address] [place] [address] Dr. Ashlie Hills Erythrocyte distribution width (RBC) [Ratio] 14.9 % Normal 11.0-15.0 [facility] Comment on above: Performed By: #### C BC #### [facility] [address] [place] [address] Dr. Ashlie Hills Hematocrit (Bld) [Volume fraction] 46.2 % Normal 36.0-48.0 [facility] Comment on above: Performed By: #### C BC #### [facility] [address] [place] [address] Dr. Ashlie Hills Hemoglobin (Bld) [Mass/Vol] 14.7 g/dL Normal 12.0-16.0 [facility] Comment on above: Performed By: #### C BC #### [facility] [address] [place] [address] Dr. Ashlie Hills IG # 0.06 10e3/ul Critically high 0.00-0.03 [facility] Comment on above: Performed By: #### C BC #### [facility] [address] [place] [address] Dr. Ashlie Hills IG % 0.4 % Normal 0.0-0.5 [facility] Comment on above: Performed By: #### C BC #### [facility] [address] [place] [address] Dr. Ashlie Hills LYMPH # 1.3 103/ul Normal 1.2-3.8 [facility] Comment on above: Performed By: #### C BC #### [facility] [address] [place] [address] Dr. Ashlie Hills Lymphocytes/100 WBC (Bld) 9.4 % Critically low 20.5-60.0 [facility] Comment on above: Performed By: #### C BC #### [facility] [address] [place] [address] Dr. Ashlie Hills MANUAL DIFF REQ NO Normal [facility] Comment on above: Performed By: #### C BC #### [facility] [address] [place] [address] Dr. Ashlie Hills MCH (RBC) [Entitic mass] 28.4 pg Normal 26.7-34.0 [facility] Comment on above: Performed By: #### C BC #### [facility] [address] [place] [address] Dr. Ashlie Hills MCHC (RBC) [Mass/Vol] 31.8 g/dL Normal 29.9-35.2 [facility] Comment on above: Performed By: #### C BC #### [facility] [address] [place] [address] Dr. Ashlie Hills MCV (RBC) [Entitic vol] 89.4 fL Normal 81.0-99.0 [facility] Comment on above: Performed By: #### C BC #### [facility] [address] [place] [address] Dr. Ashlie Hills MONO # 0.5 103/ul Normal 0.3-0.8 [facility] Comment on above: Performed By: #### C BC #### [facility] [address] [place] [address] Dr. Ashlie Hills Monocytes/100 WBC (Bld) 3.4 % Normal 1.7-12.0 [facility] Comment on above: Performed By: #### C BC #### [facility] [address] [place] [address] Dr. Ashlie Hills NEUT # 11.8 103/ul Critically high 1.4-6.5 [facility] Comment on above: Performed By: #### C BC #### [facility] [address] [place] [address] Dr. Ashlie Hills Neutrophils/100 WBC (Bld) 86.7 % Critically high 43.0-75.0 [facility] Comment on above: Performed By: #### C BC #### [facility] [address] [place] [address] Dr. Ashlie Hills Platelet mean volume (Bld) [Entitic vol] 12.6 fL Normal 9.5-13.5 [facility] Comment on above: Performed By: #### C BC #### [facility] [address] [place] [address] Dr. Ashlie Hills PLT 133 103/ul Critically low 150-450 [facility] Comment on above: Performed By: #### C BC #### [facility] [address] [place] [address] Dr. Ashlie Hills RBC 5.17 106/ul Normal 4.20-5.40 [facility] Comment on above: Performed By: #### C BC #### [facility] [address] [place] [address] Dr. Ashlie Hills WBC 13.6 103/ul Critically high 4.0-11.0 [facility] Comment on above: Performed By: #### C BC #### [facility] [address] [place] [address] Dr. Ashlie Hills MAGNESIUMon 12-06-2022 Magnesium [Mass/Vol] 2.2 mg/dL Normal 1.8-2.4 [facility] Comment on above: Performed By: #### I NFLUAB #### [facility] [address] [place] [address] Dr. Ashlie Hills POINT OF CARE GLUCOSEon 11-08 Glucose [Mass/Vol] 340 mg/dL Critically high 74-106 [facility] Comment on above: Performed By: #### P OCGLUC #### [facility] [address] [place] [address] Dr. Ashlie Hills Glucose [Mass/Vol] 276 mg/dL Critically high 74-106 [facility] Comment on above: Performed By: #### C BC #### [facility] [address] [place] [address] Dr. Ashlie Hills Glucose [Mass/Vol] 333 mg/dL Critically high 74-106 [facility] Comment on above: Performed By: #### C BC #### [facility] [address] [place] [address] Dr. Ashlie Hills PROF CHEM 8 (BAS METB)on Anion gap [Moles/Vol] 10.9 mmol/L Normal [facility] Comment on above: Performed By: #### I NFLUAB #### [facility] [address] [place] [address] Dr. Ashlie Hills Calcium [Mass/Vol] 9.3 mg/dL Normal 8.5-10.1 [facility] Comment on above: Performed By: #### I NFLUAB #### [facility] [address] [place] [address] Dr. Ashlie Hills Chloride [Moles/Vol] 103 mmol/L Normal 98-107 [facility] Comment on above: Performed By: #### I NFLUAB #### [facility] [address] [place] [address] Dr. Ashlie Hills CO2 [Moles/Vol] 31.2 mmol/L Normal 21.0-32.0 [facility] Comment on above: Performed By: #### I NFLUAB #### [facility] [address] [place] [address] Dr. Ashlie Hills Creatinine [Mass/Vol] 0.96 mg/dL Normal 0.55-1.02 [facility] Comment on above: Performed By: #### I NFLUAB #### [facility] [address] [place] [address] Dr. Ashlie Hills EGFR-AF GHANAIAN >60 Normal >=60 [facility] Comment on above: Performed By: #### I NFLUAB #### [facility] [address] [place] [address] Dr. Ashlie Hills EGFR-NON AF GHANAIAN >60 Normal >=60 [facility] Comment on above: Performed By: #### I NFLUAB #### [facility] [address] [place] [address] Dr. Ashlei Hills Glucose [Mass/Vol] 288 mg/dL Critically high 74-106 [facility] Comment on above: Performed By: #### I NFLUAB #### [facility] [address] [place] [address] Dr. Ashlie Hills Potassium [Moles/Vol] 5.1 mmol/L Normal 3.5-5.1 [facility] Comment on above: Performed By: #### I NFLUAB #### [facility] [address] [place] [address] Dr. Ashlie Hills Sodium [Moles/Vol] 140 mmol/L Normal 136-145 [facility] Comment on above: Performed By: #### I NFLUAB #### [facility] [address] [place] [address] Dr. Ashlie Hills Urea nitrogen [Mass/Vol] 30.0 mg/dL Critically high 7.0-18.0 [facility] Comment on above: Performed By: #### I NFLUAB #### [facility] [address] [place] [address] Dr. Ashlie Hills Urea nitrogen/Creatinine [Mass ratio] 31.2 mg/mg Normal [facility] Comment on above: Performed By: #### I NFLUAB #### [facility] [address] [place] [address] Dr. Ashlie Hills CBC AUTO DIFFon 12-05-2022 BASO # 0.0 103/ul Normal 0.0-0.1 [facility] Comment on above: Performed By: #### C BC #### [facility] [address] [place] [address] Dr. Ashlie Hills Basophils/100 WBC (Bld) 0.4 % Normal 0.2-2.0 [facility] Comment on above: Performed By: #### C BC #### [facility] [address] [place] [address] Dr. Ashlie Hills EO # 0.0 103/ul Normal 0.0-0.7 [facility] Comment on above: Performed By: #### C BC #### [facility] [address] [place] [address] Dr. Ashlie Hills Eosinophils/100 WBC (Bld) 0.0 % Critically low 0.9-7.0 [facility] Comment on above: Performed By: #### C BC #### [facility] [address] [place] [address] Dr. Ashlie Hills Erythrocyte distribution width (RBC) [Ratio] 14.8 % Normal 11.0-15.0 [facility] Comment on above: Performed By: #### C BC #### [facility] [address] [place] [address] Dr. Ashlie Hills Hematocrit (Bld) [Volume fraction] 49.9 % Critically high 36.0-48.0 [facility] Comment on above: Performed By: #### C BC #### [facility] [address] [place] [address] Dr. Ashlie Hills Hemoglobin (Bld) [Mass/Vol] 15.7 g/dL Normal 12.0-16.0 [facility] Comment on above: Performed By: #### C BC #### [facility] [address] [place] [address] Dr. Ashlie Hills IG # 0.04 10e3/ul Critically high 0.00-0.03 [facility] Comment on above: Performed By: #### C BC #### [facility] [address] [place] [address] Dr. Ashlie Hills IG % 0.5 % Normal 0.0-0.5 [facility] Comment on above: Performed By: #### C BC #### [facility] [address] [place] [address] Dr. Ashlie Hills LYMPH # 1.1 103/ul Critically low 1.2-3.8 [facility] Comment on above: Performed By: #### C BC #### [facility] [address] [place] [address] Dr. Ashlie Hills Lymphocytes/100 WBC (Bld) 12.7 % Critically low 20.5-60.0 [facility] Comment on above: Performed By: #### C BC #### [facility] [address] [place] [address] Dr. Ashlie Hills MANUAL DIFF REQ NO Normal [facility] Comment on above: Performed By: #### C BC #### [facility] [address] [place] [address] Dr. Ashlie Hills MCH (RBC) [Entitic mass] 28.1 pg Normal 26.7-34.0 [facility] Comment on above: Performed By: #### C BC #### [facility] [address] [address] [address] Ashlie Hills MCHC (RBC) [Mass/Vol] 31.5 g/dL Normal 29.9-35.2 [facility] Comment on above: Performed By: #### C BC #### [facility] [address] [address] [address] Ashlie Hills MCV (RBC) [Entitic vol] 89.3 fL Normal 81.0-99.0 [facility] Comment on above: Performed By: #### C BC #### [facility] [address] [place] [address] Dr. Ashlie Hills MONO # 0.1 103/ul Critically low 0.3-0.8 [facility] Comment on above: Performed By: #### C BC #### [facility] [address] [place] [address] Dr. Ashlie Hills Monocytes/100 WBC (Bld) 1.3 % Critically low 1.7-12.0 [facility] Comment on above: Performed By: #### C BC #### [facility] [address] [place] [address] Dr. Ashlie Hills NEUT # 7.2 103/ul Critically high 1.4-6.5 [facility] Comment on above: Performed By: #### C BC #### [facility] [address] [place] [address] Dr. Ashlie Hills Neutrophils/100 WBC (Bld) 85.1 % Critically high 43.0-75.0 [facility] Comment on above: Performed By: #### C BC #### [facility] [address] [place] [address] Dr. Ashlie Hills Platelet mean volume (Bld) [Entitic vol] 12.2 fL Normal 9.5-13.5 [facility] Comment on above: Performed By: #### C BC #### [facility] [address] [place], [place] [address] Dr. Ashlie Hills PLT 116 103/ul Critically low 150-450 [facility] Comment on above: Performed By: #### C BC #### [facility] [address] [address] [address] Ashlie Hills RBC 5.59 106/ul Critically high 4.20-5.40 [facility] Comment on above: Performed By: #### C BC #### [facility] [id number] Ashlie Hills WBC 8.5 103/ul Normal 4.0-11.0 [facility] Comment on above: Performed By: #### C BC #### [facility] [id number] Ashlie Hills CTA CHEST WO W CONon 05-30-2 023 CTA CHEST WO W CON EXAMINATION: [...] by: HATTIE GOFF Date: 2022-12-05 01:52 Normal [facility] MAGNESIUMon 12-05-2022 Magnesium [Mass/Vol] 2.1 mg/dL Normal 1.8-2.4 [facility] Comment on above: Performed By: #### P OCGLUC #### [facility] [address] [address] [address] Ashlie Hills POINT OF CARE GLUCOSEon 11-08 Glucose [Mass/Vol] 293 mg/dL Critically high -106 [facility] Comment on above: Performed By: #### P OCGLUC #### [facility] [address] [address] [address] Ashlie Hills Glucose [Mass/Vol] 269 mg/dL Critically high [facility]106 [facility] Comment on above: Performed By: #### P OCGLUC #### [facility] [address] [address] [address] Ashlie Hills Glucose [Mass/Vol] 223 mg/dL Critically high [facility]106 [facility] Comment on above: Performed By: #### C VDAGS #### [facility] [address] [address] [address] Ashlie Hills PROF CHEM 8 (BAS METB)on Anion gap [Moles/Vol] 11.6 mmol/L Normal [facility] Comment on above: Performed By: #### P OCGLUC #### [facility] [address] [address] [address] Ashlie Hills Calcium [Mass/Vol] 9.2 mg/dL Normal 8.5-10.1 [facility] Comment on above: Performed By: #### P OCGLUC #### [facility] [address] [address] [address] Ashlie Hills Chloride [Moles/Vol] 102 mmol/L Normal 98-107 [facility] Comment on above: Performed By: #### P OCGLUC #### [facility] [address] [address] [address] Ashlie Hills CO2 [Moles/Vol] 28.7 mmol/L Normal 21.0-32.0 [facility] Comment on above: Performed By: #### P OCGLUC #### [facility] [address] [address] [address] Ashlie Hills Creatinine [Mass/Vol] 1.04 mg/dL Critically high 0.55-1.02 [facility] Comment on above: Performed By: #### P OCGLUC #### [facility] [address] [address] [address] Ashlie Hills EGFR-AF GHANAIAN >60 Normal >=60 [facility] Comment on above: Performed By: #### P OCGLUC #### [facility] [address] [address] [address] Ashlie Hills EGFR-NON AF GHANAIAN 56 mL/min/1.73m2 Critically low >=60 [facility] Comment on above: Performed By: #### P OCGLUC #### [facility] [address] [address] [address] Ashlie Hills Glucose [Mass/Vol] 231 mg/dL Critically high 74-106 [facility] Comment on above: Performed By: #### P OCGLUC #### [facility] [address] [address] [address] Ashlie Hills Potassium [Moles/Vol] 4.3 mmol/L Normal 3.5-5.1 [facility] Comment on above: Performed By: #### P OCGLUC #### [facility] [address] [address] [address] Ashlie Hills Sodium [Moles/Vol] 138 mmol/L Normal 136-145 [facility] Comment on above: Performed By: #### P OCGLUC #### [facility] [address] [address] [address] Ashlie Hills Urea nitrogen [Mass/Vol] 17.0 mg/dL Normal 7.0-18.0 [facility] Comment on above: Performed By: #### P OCGLUC #### [facility] [address] [place] [address] Dr. Ashlie Hills Urea nitrogen/Creatinine [Mass ratio] 16.3 mg/mg Normal [facility] Comment on above: Performed By: #### P OCGLUC #### [facility] [address] [place] [address] Dr. Ashlie Hills RESPIRATORY PANEL PLUSon Adenovirus Not detected Normal NOT DETECTED [facility] Comment on above: Performed By: #### C VDAGS #### [facility] [address] [place] [address] Dr. Ashlie Hills B. Parapertusis Not detected Normal NOT DETECTED [facility] Comment on above: Performed By: #### C VDAGS #### [facility] [address] [place] [address] Dr. Ashlie Shaffer. Pertussis Not detected Normal NOT DETECTED [facility] Comment on above: Performed By: #### C VDAGS #### [facility] [address] [place] [address] Dr. Ashlie Hills Chlamydia Pneumoniae Not detected Normal NOT DETECTED [facility] Comment on above: Performed By: #### C VDAGS #### [facility] [address] [place] [address] Dr. Ashlie Hills Coronavirus 229E Not detected Normal NOT DETECTED [facility] Comment on above: Performed By: #### C VDAGS #### [facility] [address] [place] [address] Dr. Ashlie Hills Coronavirus HKU1 Not detected Normal NOT DETECTED [facility] Comment on above: Performed By: #### C VDAGS #### [facility] [address] [place] [address] Dr. Ashlie Hills Coronavirus NL63 Not detected Normal NOT DETECTED [facility] Comment on above: Performed By: #### C VDAGS #### [facility] [address] [place] [address] Dr. Ashlie Hills Coronavirus OC43 Not detected Normal NOT DETECTED [facility] Comment on above: Performed By: #### C VDAGS #### [facility] [address] [address] [address] Ashlie Hills Influenza A H1 Not detected Normal NOT DETECTED [facility] Comment on above: Performed By: #### C VDAGS #### [facility] [address] [address] [address] Ashlie Hills Influenza A H1 2009 Not detected Normal NOT DETECTED [facility] Comment on above: Performed By: #### C VDAGS #### [facility] [address] [address] [address] Ashlie Hills Influenza A H3 Not detected Normal NOT DETECTED [facility] Comment on above: Performed By: #### C VDAGS #### [facility] [address] [address] [address] Ashlie Hills Influenza B Not detected Normal NOT DETECTED [facility] Comment on above: Performed By: #### C VDAGS #### [facility] [address] [address] [address] Ashlie Hills Metapneumovirus Not detected Normal NOT DETECTED [facility] Comment on above: Performed By: #### C VDAGS #### [facility] [address] [address] [address] Ashlie Hills Mycoplas. Pneumoniae Not detected Normal NOT DETECTED [facility] Comment on above: Performed By: #### C VDAGS #### [facility] [address] [place] [address] Dr. Ashlie Hills Parainfluenza 1 Not detected Normal NOT DETECTED [facility] Comment on above: Performed By: #### C VDAGS #### [facility] [address] [address] [address] Ashlie Hills Parainfluenza 2 Not detected Normal NOT DETECTED [facility] Comment on above: Performed By: #### C VDAGS #### [facility] [address] [place] [address] Dr. Ashlie Hills Parainfluenza 3 Detected Abnormal NOT DETECTED [facility] Comment on above: Performed By: #### C VDAGS #### [facility] [address] [place] [address] Dr. Ashlie Hills Parainfluenza 4 Not detected Normal NOT DETECTED [facility] Comment on above: Performed By: #### C VDAGS #### [facility] [address] [place] [address] Dr. Ashlie Hills Rhino/Enterovirus Not detected Normal NOT DETECTED [facility] Comment on above: Performed By: #### C VDAGS #### [facility] [address] [place] [address] Dr. Ashlie Hills RP2 Header 1 RESPIRATORY PANEL: VIRUSES Normal [facility] Comment on above: Performed By: #### C VDAGS #### [facility] [address] [place] [address] Dr. Ashlie Hills RP2 Header 2 RESPIRATORY PANEL: BACTERIA Normal [facility] Comment on above: Performed By: #### C VDAGS #### [facility] [address] [place] [address] Dr. Ashlie Hills RSV Not detected Normal NOT DETECTED [facility] Comment on above: Performed By: #### C VDAGS #### [facility] [address] [place] [address] Dr. Ashlie Hills SARS-CoV-2 (COVID-19) RNA MADDY+probe Ql (Unsp spec) Not detected Normal NOT DETECTED [facility] Comment on above: Performed By: #### C VDAGS #### [facility] [address] [place] [address] Dr. Ashlie Hills XR CHEST 1 Von [...] by: MARYANNE POWER Date: 2022-12-04 22:23 Normal [facility] BLOOD GASES BTYon 12-04-2022 02 MODE ROOM AIR Normal [facility] Comment on above: Performed By: #### C BC #### [facility] [address] [address] [address] Ashlie Hills ALLENS TEST Positive Normal [facility] Comment on above: Performed By: #### C BC #### [facility] [address] [address] [address] Ashlie Hills Base excess Calc (Bld) [Moles/Vol] 5.4 mmol/L Critically high -2.0-2.0 [facility] Comment on above: Performed By: #### C BC #### [facility] [address] [address] [address] Ashlie Hills BIPAP PRESSURE Normal [facility] Comment on above: Performed By: #### C BC #### [facility] [address] [place] [address] Dr. Ashlie Hills CPAP [facility] Comment on above: Performed By: #### C BC #### [facility] [address] [place] [address] Dr. Ashlie Hills FIO2 [facility] Comment on above: Performed By: #### C BC #### [facility] [address] [address] [address] Ashlie Hills HCO3 (Bld) [Moles/Vol] 30.8 mmol/L Critically high 22.0-26.0 [facility] Comment on above: Performed By: #### C BC #### [facility] [address] [place] [address] Dr. Ashlie Hills LPM Normal [facility] Comment on above: Performed By: #### C BC #### [facility] [address] [address] [address] Ashlie Hills MINUTE VOLUME Normal [facility] Comment on above: Performed By: #### C BC #### [facility] [address] [place] [address] Dr. Ashlie Hills Oxygen (Bld) [Partial pressure] 46.3 mm[Hg] Critically low 80.0-100.0 [facility] Comment on above: Performed By: #### C BC #### [facility] [address] [address] [address] Ashlie Hills Oxygen saturation in Blood 83.9 % Critically low 95.0-100.0 [facility] Comment on above: Performed By: #### C BC #### [facility] [address] [address] [address] Ashlie Hills PCO2 54.2 mmHg Critically high 35.0-45.0 [facility] Comment on above: Performed By: #### C BC #### [facility] [address] [address] [address] Ashlie Hills [facility] Comment on above: Performed By: #### C BC #### [facility] [address] [place] [address] Dr. Ashlie Hills pH (Bld) 7.363 [pH] Normal 7.350-7.450 [facility] Comment on above: Performed By: #### C BC #### [facility] [address] [place] [address] Dr. Ashlie Hills [facility] Comment on above: Performed By: #### C BC #### [facility] [address] [place] [address] Dr. Ashlie Hills [facility] Comment on above: Performed By: #### C BC #### [facility] [address] [place] [address] Dr. Ashlie Hills PUNCTURE SITE LR [facility] Comment on above: Performed By: #### C BC #### [facility] [address] [place] [address] Dr. Ashlie Hills RATE [facility] Comment on above: Performed By: #### C BC #### [facility] [address] [address] [address] Ashlie Hills VENT MODE [facility] Comment on above: Performed By: #### C BC #### [facility] [address] [place] [address] Dr. Ashlie Hills [facility] Comment on above: Performed By: #### C BC #### [facility] [address] [place] [address] Dr. Ashlie Hills BNPon 12-04-2022 Natriuretic peptide B (Bld) [Mass/Vol] 76.0 pg/mL Normal <=900.0 [facility] Comment on above: Performed By: #### P OCGLUC #### [facility] [address] [place] [address] Dr. Ashlie Hills CBC AUTO DIFFon 12-04-2022 BASO # 0.1 103/ul Normal 0.0-0.1 [facility] Comment on above: Performed By: #### C BC #### [facility] [address] [place] [address] Dr. Ashlie Hills Basophils/100 WBC (Bld) 0.6 % Normal 0.2-2.0 [facility] Comment on above: Performed By: #### C BC #### [facility] [address] [place] [address] Dr. Ashlie Hills EO # 0.2 103/ul Normal 0.0-0.7 [facility] Comment on above: Performed By: #### C BC #### [facility] [address] [place] [address] Dr. Ashlie Hills Eosinophils/100 WBC (Bld) 1.9 % Normal 0.9-7.0 [facility] Comment on above: Performed By: #### C BC #### [facility] [address] [place] [address] Dr. Ashlie Hills Erythrocyte distribution width (RBC) [Ratio] 15.0 % Normal 11.0-15.0 [facility] Comment on above: Performed By: #### C BC #### [facility] [address] [place] [address] Dr. Ashlie Hills Hematocrit (Bld) [Volume fraction] 49.1 % Critically high 36.0-48.0 [facility] Comment on above: Performed By: #### C BC #### [facility] [address] [place] [address] Dr. Ashlie Hills Hemoglobin (Bld) [Mass/Vol] 15.6 g/dL Normal 12.0-16.0 [facility] Comment on above: Performed By: #### C BC #### [facility] [address] [place] [address] Dr. Ashlie Hills IG # 0.02 10e3/ul Normal 0.00-0.03 [facility] Comment on above: Performed By: #### C BC #### [facility] [address] [place] [address] Dr. Ashlie Hills IG % 0.2 % Normal 0.0-0.5 [facility] Comment on above: Performed By: #### C BC #### [facility] [address] [place] [address] Dr. sAhlie Hills LYMPH # 2.8 103/ul Normal 1.2-3.8 [facility] Comment on above: Performed By: #### C BC #### [facility] [address] [place] [address] Dr. Ashlie Hills Lymphocytes/100 WBC (Bld) 29.9 % Normal 20.5-60.0 [facility] Comment on above: Performed By: #### C BC #### [facility] [address] [place] [address] Dr. Ashlie Hills MANUAL DIFF REQ NO Normal [facility] Comment on above: Performed By: #### C BC #### [facility] [address] [place] [address] Dr. Ashlie Hills MCH (RBC) [Entitic mass] 28.5 pg Normal 26.7-34.0 [facility] Comment on above: Performed By: #### C BC #### [facility] [address] [place] [address] Dr. Ashlie Hills MCHC (RBC) [Mass/Vol] 31.8 g/dL Normal 29.9-35.2 [facility] Comment on above: Performed By: #### C BC #### [facility] [address] [place] [address] Dr. Ashlie Hills MCV (RBC) [Entitic vol] 89.8 fL Normal 81.0-99.0 [facility] Comment on above: Performed By: #### C BC #### [facility] [address] [address] [address] Ashlie Hills MONO # 1.0 103/ul Critically high 0.3-0.8 [facility] Comment on above: Performed By: #### C BC #### [facility] [address] [address] [address] Ashlie Hills Monocytes/100 WBC (Bld) 10.6 % Normal 1.7-12.0 [facility] Comment on above: Performed By: #### C BC #### [facility] [address] [address] [address] Ashlie Hills NEUT # 5.3 103/ul Normal 1.4-6.5 [facility] Comment on above: Performed By: #### C BC #### [facility] [address] [place] [address] Dr. Ashlie Hills Neutrophils/100 WBC (Bld) 56.8 % Normal 43.0-75.0 [facility] Comment on above: Performed By: #### C BC #### [facility] [address] [place] [address] Dr. Ashlie Hills Platelet mean volume (Bld) [Entitic vol] 12.5 fL Normal 9.5-13.5 [facility] Comment on above: Performed By: #### C BC #### [facility] [address] [place] [address] Dr. Ashlie Hills PLT 109 103/ul Critically low 150-450 [facility] Comment on above: Performed By: #### C BC #### [facility] [address] [place] [address] Dr. Ashlie Hills RBC 5.47 106/ul Critically high 4.20-5.40 [facility] Comment on above: Performed By: #### C BC #### [facility] [address] [place] [address] Dr. Ashlie Hills WBC 9.4 103/ul Normal 4.0-11.0 [facility] Comment on above: Performed By: #### C BC #### [facility] [address] [place], [place] [id number] Dr. Ashlie Hills PROF 14(COMP METB)on 023 Albumin [Mass/Vol] 2.9 g/dL Critically low 3.4-5.0 [facility] Comment on above: Performed By: #### C BC #### [facility] [address] [place] [address] Dr. Ashlie Hills Albumin/Globulin [Mass ratio] 0.6 {ratio} Normal [facility] Comment on above: Performed By: #### C BC #### [facility] [address] [place] [address] Dr. Ashlie Hills ALP [Catalytic activity/Vol] 64 U/L Normal 46-116 [facility] Comment on above: Performed By: #### C BC #### [facility] [address] [place] [address] Dr. Ashlie Hills ALT [Catalytic activity/Vol] 16 U/L Normal 14-59 [facility] Comment on above: Performed By: #### C BC #### [facility] [address] [place] [address] Dr. Ashlie Hills Anion gap [Moles/Vol] 9.6 mmol/L Normal [facility] Comment on above: Performed By: #### C BC #### [facility] [address] [place] [address] Dr. Ashlie Hills AST [Catalytic activity/Vol] 16 U/L Normal 15-37 [facility] Comment on above: Performed By: #### C BC #### [facility] [address] [place] [address] Dr. Ashlie Hills Bilirubin [Mass/Vol] 0.5 mg/dL Normal 0.2-1.0 [facility] Comment on above: Performed By: #### C BC #### [facility] [address] [place] [address] Dr. Ashlie Hills Calcium [Mass/Vol] 8.7 mg/dL Normal 8.5-10.1 [facility] Comment on above: Performed By: #### C BC #### [facility] [address] [place] [address] Dr. Ashlie Hills Chloride [Moles/Vol] 103 mmol/L Normal 98-107 [facility] Comment on above: Performed By: #### C BC #### [facility] [address] [address] [address] Ashlie Hills CO2 [Moles/Vol] 30.7 mmol/L Normal 21.0-32.0 [facility] Comment on above: Performed By: #### C BC #### [facility] [address] [address] [address] Ashlie Hills Creatinine [Mass/Vol] 0.96 mg/dL Normal 0.55-1.02 [facility] Comment on above: Performed By: #### C BC #### [facility] [address] [place] [address] Dr. Ashlie Hills EGFR-AF GHANAIAN >60 Normal >=60 [facility] Comment on above: Performed By: #### C BC #### [facility] [address] [place] [address] Dr. Ashlie Hills EGFR-NON AF GHANAIAN >60 Normal >=60 [facility] Comment on above: Performed By: #### C BC #### [facility] [address] [place] [address] Dr. Ashlie Hills Globulin (S) [Mass/Vol] 4.7 g/dL Normal [facility] Comment on above: Performed By: #### C BC #### [facility] [address] [place] [address] Dr. Ashlie Hills Glucose [Mass/Vol] 170 mg/dL Critically high 74-106 [facility] Comment on above: Performed By: #### C BC #### [facility] [address] [place] [address] Dr. Ashlie Hills Potassium [Moles/Vol] 4.3 mmol/L Normal 3.5-5.1 [facility] Comment on above: Performed By: #### C BC #### [facility] [address] [place] [address] Dr. Ashlie Hills Protein [Mass/Vol] 7.6 g/dL Normal 6.4-8.2 [facility] Comment on above: Performed By: #### C BC #### [facility] [address] [address] [address] Ashlie Hills Sodium [Moles/Vol] 139 mmol/L Normal 136-145 [facility] Comment on above: Performed By: #### C BC #### [facility] [address] [place] [address] Dr. Ashlie Hills Urea nitrogen [Mass/Vol] 16.0 mg/dL Normal 7.0-18.0 [facility] Comment on above: Performed By: #### C BC #### [facility] [address] [place] [address] Dr. Ashlie Hills Urea nitrogen/Creatinine [Mass ratio] 16.7 mg/mg Normal [facility] Comment on above: Performed By: #### C BC #### [facility] [address] [place] [address] Dr. Ashlie Hills SYMPTOMATIC COVID-19 ANTIGEN on 12-04-2022 EUA Statement SEE BELOW Normal [facility] Comment on above: Result Comment: [...] sooner. Performed By: #### C VDAGS #### [facility] [address] [place] [address] Dr. Ashlie Hills SARS-CoV-2 (COVID-19) RNA MADDY+probe Ql (Unsp spec) Negative Normal NEGATIVE [facility] Comment on above: Performed By: #### C VDAGS #### [facility] [address] [place] [address] Dr. Ashlie Hills TROPONIN, HIGH SENSITIVITYon 12-04-2022 HSTROP 8.9 pg/mL Normal 4.0-51.3 [facility] Comment on above: Result Comment: CUT- OFF POINTS HAVE BEEN ESTABLISHED BASED ON THE FOURTH UNIVERSAL DEFINITIONS OF MYOCARDIAL INFARCTION. THE UPPER REFERENCE LIMIT (URL) OF TROPONIN, DEFINED THE 99TH PERCENTILE OF cTnI DISTRIBUTION IN A REFERENCE POPULATION, HAS BEEN CONFIRMED THE DECISION THRESHOLD FOR [place] DIAGNOSIS. Performed By: #### P OCGLUC #### [facility] [address] [place] [address] Dr. Ashlie Hills MICROALBUMIN, RAND URon - mALB 35.8 mg/dL Critically high <=30.0 [facility] Comment on above: Performed By: #### C VDAGS #### [facility] [address] [place] [address] Dr. Ashlie Hills UA RANDOM W/MICROSCOPICon BACTERIA NONE SEEN Normal NONE SEEN [facility] Comment on above: Performed By: #### C VDAGS #### [facility] [address] [place] [address] Dr. Ashlie Hills Bilirubin Ql (U) Negative Normal NEGATIVE [facility] Comment on above: Performed By: #### C VDAGS #### [facility] [address] [place] [address] Dr. Ashlie Hills CAST SEEN Abnormal NONE SEEN [facility] Comment on above: Performed By: #### C VDAGS #### [facility] [address] [place] [address] Dr. Ashlie Hills Clarity (U) CLEAR Normal CLEAR [facility] Comment on above: Performed By: #### C VDAGS #### [facility] [address] [place] [address] Dr. Ashlie Hills Color (U) YELLOW Normal YELLOW [facility] Comment on above: Performed By: #### C VDAGS #### [facility] [address] [place] [address] Dr. Ashlie Hills Crystals LM Nom (Urine sed) NONE SEEN Normal NONE SEEN [facility] Comment on above: Performed By: #### C VDAGS #### [facility] [address] [place] [address] Dr. Ashlie Hills Epithelial cells LM Ql (Urine sed) MODERATE Abnormal NONE SEEN /RARE [facility] Comment on above: Performed By: #### C VDAGS #### [facility] [address] [place] [address] Dr. Ashlie Hills Glucose Ql (U) Negative Normal NEGATIVE [facility] Comment on above: Performed By: #### C VDAGS #### [facility] [address] [place] [address] Dr. Ashlie Hills Hemoglobin Ql (U) TRACE-INTACT Abnormal NEGATIVE [facility] Comment on above: Performed By: #### C VDAGS #### [facility] [address] [place] [address] Dr. Ashlie Hills Ketones Ql (U) Negative Normal NEGATIVE [facility] Comment on above: Performed By: #### C VDAGS #### [facility] [address] [place] [address] Dr. Ashlie Hills LEUKOCYTES Negative Normal NEGATIVE [facility] Comment on above: Performed By: #### C VDAGS #### [facility] [address] [place] [address] Dr. Ashlie Hills MUCOUS NONE SEEN Normal NONE SEEN [facility] Comment on above: Performed By: #### C VDAGS #### [facility] [address] [place] [address] Dr. Ashlie Hills Nitrite Ql (U) Negative Normal NEGATIVE [facility] Comment on above: Performed By: #### C VDAGS #### [facility] [address] [place] [address] Dr. Ashlie Hills pH (U) 5.0 [pH] Normal 5-9 [facility] Comment on above: Performed By: #### C VDAGS #### [facility] [address] [place] [address] Dr. Ashlie Hills RBC 0-2 Normal 0-2 [facility] Comment on above: Performed By: #### C VDAGS #### [facility] [address] [address] [address] Ashlie Hills SPEC GRAVITY 1.030 Abnormal 1.005-<=1.025 [facility] Comment on above: Performed By: #### C VDAGS #### [facility] [address] [address] [address] Ashlie Hills UA PROTEIN 100 mg/dl Abnormal NEGATIVE/ TRACE [facility] Comment on above: Performed By: #### C VDAGS #### [facility] [address] [place] [address] Dr. Ashlie Hills Urobilinogen Qn (U) 0.2 {Little'U}/dL Normal 0.2 - 1. 0 [facility] Comment on above: Performed By: #### C VDAGS #### [facility] [address] [place] [address] Dr. Ashlie Hills WBC NONE SEEN Normal NONE SEEN [facility] Comment on above: Performed By: #### C VDAGS #### [facility] [address] [place] [address] Dr. Ashlie Hills CBC AUTO DIFFon 11-22-2022 BASO # 0.0 103/ul Normal 0.0-0.1 [facility] Comment on above: Performed By: #### C BC #### [facility] [address] [place] [address] Dr. Ashlie Hills Basophils/100 WBC (Bld) 0.3 % Normal 0.2-2.0 [facility] Comment on above: Performed By: #### C BC #### [facility] [address] [place] [address] Dr. Ashlie Hills EO # 0.4 103/ul Normal 0.0-0.7 [facility] Comment on above: Performed By: #### C BC #### [facility] [address] [place] [address] Dr. Ashlie Hills Eosinophils/100 WBC (Bld) 3.0 % Normal 0.9-7.0 [facility] Comment on above: Performed By: #### C BC #### [facility] [address] [place] [address] Dr. Ashlie Hills Erythrocyte distribution width (RBC) [Ratio] 15.3 % Critically high 11.0-15.0 [facility] Comment on above: Performed By: #### C BC #### [facility] [address] [place] [address] Dr. Ashlie Hills Hematocrit (Bld) [Volume fraction] 52.4 % Critically high 36.0-48.0 [facility] Comment on above: Performed By: #### C BC #### [facility] [address] [place] [address] Dr. Ashlie Hills Hemoglobin (Bld) [Mass/Vol] 16.8 g/dL Critically high 12.0-16.0 [facility] Comment on above: Performed By: #### C BC #### [facility] [address] [place] [address] Dr. Ashlie Hills IG # 0.04 10e3/ul Critically high 0.00-0.03 [facility] Comment on above: Performed By: #### C BC #### [facility] [address] [place] [address] Dr. Ashlie Hills IG % 0.3 % Normal 0.0-0.5 [facility] Comment on above: Performed By: #### C BC #### [facility] [address] [place] [address] Dr. Ashlie Hills LYMPH # 4.5 103/ul Critically high 1.2-3.8 [facility] Comment on above: Performed By: #### C BC #### [facility] [address] [place] [address] Dr. Ashlie Hills Lymphocytes/100 WBC (Bld) 33.2 % Normal 20.5-60.0 [facility] Comment on above: Performed By: #### C BC #### [facility] [address] [place] [address] Dr. Ashlie Hills MANUAL DIFF REQ NO Normal [facility] Comment on above: Performed By: #### C BC #### [facility] [address] [address] [address] Ashlie Hills MCH (RBC) [Entitic mass] 28.0 pg Normal 26.7-34.0 [facility] Comment on above: Performed By: #### C BC #### [facility] [address] [place] [address] Dr. Ashlie Hills MCHC (RBC) [Mass/Vol] 32.1 g/dL Normal 29.9-35.2 [facility] Comment on above: Performed By: #### C BC #### [facility] [address] [place] [address] Dr. Ashlie Hills MCV (RBC) [Entitic vol] 87.3 fL Normal 81.0-99.0 [facility] Comment on above: Performed By: #### C BC #### [facility] [address] [place] [address] Dr. Ashlie Hills MONO # 0.8 103/ul Normal 0.3-0.8 [facility] Comment on above: Performed By: #### C BC #### [facility] [address] [place] [address] Dr. Ashlie Hills Monocytes/100 WBC (Bld) 5.7 % Normal 1.7-12.0 [facility] Comment on above: Performed By: #### C BC #### [facility] [address] [place] [address] Dr. Ashlie Hills NEUT # 7.8 103/ul Critically high 1.4-6.5 [facility] Comment on above: Performed By: #### C BC #### [facility] [address] [place] [address] Dr. Ashlie Hills Neutrophils/100 WBC (Bld) 57.5 % Normal 43.0-75.0 [facility] Comment on above: Performed By: #### C BC #### [facility] [address] [place] [address] Dr. Ashlie Hills Platelet mean volume (Bld) [Entitic vol] 12.0 fL Normal 9.5-13.5 [facility] Comment on above: Performed By: #### C BC #### [facility] [address] [address] [address] Ashlie Hills PLT 152 103/ul Normal 150-450 [facility] Comment on above: Performed By: #### C BC #### [facility] [address] [address] [address] Ashlie Hills RBC 6.00 106/ul Critically high 4.20-5.40 [facility] Comment on above: Performed By: #### C BC #### [facility] [address] [address] [address] Ashlie Hills WBC 13.6 103/ul Critically high 4.0-11.0 [facility] Comment on above: Performed By: #### C BC #### [facility] [address] [place] [address] Dr. Ashlie Hills LIPID PROFILEon 11-22-2022 CHOL-HDL RATIO NORM SEE BELOW Normal [facility] Comment on above: Result Comment: 3.3 - 4.4 LOW RISK 4.4 - 7.1 AVERAGE RISK 7.1 - 11.0 MODERATE RISK >11.0 HIGH RISK Performed By: #### C BC #### [facility] [address] [place] [address] Dr. Ashlie Hills Cholesterol [Mass/Vol] 139 mg/dL Normal <=200 [facility] Comment on above: Performed By: #### C BC #### [facility] [address] [place] [address] Dr. Ashlie Hills Cholesterol in HDL [Mass/Vol] 35 mg/dL Critically low 40-60 [facility] Comment on above: Performed By: #### C BC #### [facility] [address] [address] [address] Ashlie Hills Cholesterol in LDL [Mass/Vol] 67.4 mg/dL Normal [facility] Comment on above: Performed By: #### C BC #### [facility] [address] [place] [address] Dr. Ashlie Hills Cholesterol.total/Ch olesterol in HDL [Mass ratio] 4.0 {ratio} Normal [facility] Comment on above: Performed By: #### C BC #### [facility] [address] [address] [address] Ashlie Hills HDL NORMAL > or = 60 mg/dl - LOW CARDIOVASCULAR RISK <40 mg/dl - HIGH CARDIOVASCULAR RISK Normal [facility] Comment on above: Performed By: #### C BC #### [facility] [address] [address] [address] Ashlie Hills LDL CALC NORMAL SEE BELOW Normal [facility] Comment on above: Result Comment: <100 mg/dl OPTIMAL 100 - 129 mg/dl NEAR OR ABOVE OPTIMAL 130 - 159 mg/dl BORDERLINE HIGH 160 - 189 mg/dl HIGH >190 mg/dl VERY HIGH Performed By: #### C BC #### [facility] [address] [address] [address] Ashlie Hills Triglyceride [Mass/Vol] 183 mg/dL Critically high <=150 [facility] Comment on above: Performed By: #### C BC #### [facility] [address] [address] [address] Ashlie Hills VLDL CALC 36.6 mg/dL Normal [facility] Comment on above: Performed By: #### C BC #### [facility] [address] [address] [address] Ashlie Hills MG MAMM SCREEN 3D ALEX CADon 11-22-2022 MG MAMM SCREEN 3D ALEX CAD Patient: MITZI MACIAS Exam Date: 11/22/2022 : 1970 Gender:F Ordering : SAYDA BLAS [facility] Admission #: [id number] Family : Order #: [id number] CLICK HERE TO VIEW EXAM RADIOLOGY REPORT [...] unknown cancer at age 75. LOCATION: [facility] BREAST COMPOSITION: Almost entirely fatty. [...] M.D. on 11/22/2022 at 12:09 Normal [facility] PROF 14(COMP METB)on 023 Albumin [Mass/Vol] 3.0 g/dL Critically low 3.4-5.0 [facility] Comment on above: Performed By: #### C BC #### [facility] [address] [place] [address] Dr. Ashlie Hills Albumin/Globulin [Mass ratio] 0.6 {ratio} Normal [facility] Comment on above: Performed By: #### C BC #### [facility] [address] [place] [address] Dr. Ashlie Hills ALP [Catalytic activity/Vol] 68 U/L Normal 46-116 [facility] Comment on above: Performed By: #### C BC #### [facility] [address] [place] [address] Dr. Ashlie Hills ALT [Catalytic activity/Vol] 14 U/L Normal 14-59 [facility] Comment on above: Performed By: #### C BC #### [facility] [address] [place] [address] Dr. Ashlie Hills Anion gap [Moles/Vol] 12.1 mmol/L Normal [facility] Comment on above: Performed By: #### C BC #### [facility] [address] [place] [address] Dr. Ashlie Hills AST [Catalytic activity/Vol] 9 U/L Critically low 15-37 [facility] Comment on above: Performed By: #### C BC #### [facility] [address] [address] [address] Ashlie Hills Bilirubin [Mass/Vol] 0.4 mg/dL Normal 0.2-1.0 [facility] Comment on above: Performed By: #### C BC #### [facility] [address] [address] [address] Ashlie Hills Calcium [Mass/Vol] 9.0 mg/dL Normal 8.5-10.1 [facility] Comment on above: Performed By: #### C BC #### [facility] [address] [place] [address] Dr. Ashlie Hills Chloride [Moles/Vol] 105 mmol/L Normal 98-107 [facility] Comment on above: Performed By: #### C BC #### [facility] [address] [address] [address] Ashlie Hills CO2 [Moles/Vol] 30.7 mmol/L Normal 21.0-32.0 [facility] Comment on above: Performed By: #### C BC #### [facility] [address] [place] [address] Dr. Ashlie Hills Creatinine [Mass/Vol] 0.77 mg/dL Normal 0.55-1.02 [facility] Comment on above: Performed By: #### C BC #### [facility] [address] [address] [address] Ashlie Hills EGFR-AF GHANAIAN >60 Normal >=60 [facility] Comment on above: Performed By: #### C BC #### [facility] [address] [address] [address] Ashlie Hills EGFR-NON AF GHANAIAN >60 Normal >=60 [facility] Comment on above: Performed By: #### C BC #### [facility] [address] [place] [address] Dr. Ashlie Hills Globulin (S) [Mass/Vol] 4.8 g/dL Normal [facility] Comment on above: Performed By: #### C BC #### [facility] [address] [address] [address] Ashlie Hills Glucose [Mass/Vol] 162 mg/dL Critically high 74-106 [facility] Comment on above: Performed By: #### C BC #### [facility] [address] [address] [address] Ashlie Hills Potassium [Moles/Vol] 3.8 mmol/L Normal 3.5-5.1 [facility] Comment on above: Performed By: #### C BC #### [facility] [address] [address] [address] Ashlie Hills Protein [Mass/Vol] 7.8 g/dL Normal 6.4-8.2 [facility] Comment on above: Performed By: #### C BC #### [facility] [address] [address] [address] Ashlie Hills Sodium [Moles/Vol] 144 mmol/L Normal 136-145 [facility] Comment on above: Performed By: #### C BC #### [facility] [address] [address] [address] Ashlie Hills Urea nitrogen [Mass/Vol] 24.0 mg/dL Critically high 7.0-18.0 [facility] Comment on above: Performed By: #### C BC #### [facility] [address] [address] [address] Ashlie Hills Urea nitrogen/Creatinine [Mass ratio] 31.2 mg/mg Normal [facility] Comment on above: Performed By: #### C BC #### [facility] [address] [address] [address] Ashlie Hills Patient Educationon 11-16-19 Patient Education Nephrology Dietary Guidelines to Help [...] Spinach (cooked), rhubarb, beets, sweet potatoes, and Afghan chard. ? Peanuts. ? Potato chips, slovenian fries, and baked potatoes with skin on. ? Nuts and nut products. ? Chocolate. ? If you regularly take a diuretic medicine, make sure to eat at least 1 or 2 servings of fruits or vegetables that are high in potassium each day. These include: ? Avocado. ? Banana. ? [place], prune, carrot, or tomato juice. ? Baked [...] fish oil, or vitamin B6. ? Take nmrx-ype-ivztlaw and prescription medicines only as told by your health care provider. These include supplements. What foods should I limit? Limit your in (more content not included)... Normal [facility] Reminderson 11-15-2022 Reminders - From: Maria Elena Negrete To: SHEA Fried Zacarias; Sent: 11/15/2022 14:23:36 EDT Show up: 04/17/2024 14:23:00 EDT Subject: Schedule CT AP w con Due Date/Time: 05/18/2024 13:23:00 EST Please schedule [address] AP w con for adrenal mass. Normal [facility] Urology Office/Clinic Noteon 11-15-2022 Urology Office/Clinic Note [...] this week. Follow-up With When Contact Information ZACARIAS HOWELL, GAVIOTA Webb, URL [address] [place] [address] Additional Instructions: [address] AP w con Patient Education Dietary Guidelines to Help Prevent Kidney Stones Documentation recorded by the scribtracey Negrete accurately reflects the services(s) I performed and decisions made by me. Authenticated by Gaviota Vega PA-C on 11/15/2022 14:32:07. I, Maria Elena Negrete, personally scribed for TALIB García on 11/15/2022 [...] (1/2 pack (more content not included)... Normal [facility] Comment on above: Result Comment: Elec tronically Signed By: GAVIOTA VEGA PA-C\.br\Date and Time Signed: 11/15/22 14:32 EDT\.br\Electronically Co-Signed By: Maria Elena Negrete P\.br\Date and Time Co-Signed: 11/15/22 14:22 EDT\.br\Electronically Co-Signed By: Maria Elena Negrete P\.br\Date and Time Co-Signed: 11/15/22 14:22 EDT CBC AUTO DIFFon 10-05-2022 BASO # 0.1 103/ul Normal 0.0-0.1 [facility] Comment on above: Performed By: #### C BC #### [facility] [address] [address] [address] Ashlie Hills Basophils/100 WBC (Bld) 0.6 % Normal 0.2-2.0 [facility] Comment on above: Performed By: #### C BC #### [facility] [address] [address] [address] Ashlie Hills EO # 0.3 103/ul Normal 0.0-0.7 [facility] Comment on above: Performed By: #### C BC #### [facility] [address] [address] [address] Ashlie Hills Eosinophils/100 WBC (Bld) 2.1 % Normal 0.9-7.0 [facility] Comment on above: Performed By: #### C BC #### [facility] [address] [address] [address] Ashlie Hills Erythrocyte distribution width (RBC) [Ratio] 15.9 % Critically high 11.0-15.0 [facility] Comment on above: Performed By: #### C BC #### [facility] [address] [address] [address] Ashlie Hills Hematocrit (Bld) [Volume fraction] 51.8 % Critically high 36.0-48.0 [facility] Comment on above: Performed By: #### C BC #### [facility] [address] [address] [address] Ashlie Hills Hemoglobin (Bld) [Mass/Vol] 16.6 g/dL Critically high 12.0-16.0 [facility] Comment on above: Performed By: #### C BC #### [facility] [address] [place] [address] Dr. Ashlie Hills IG # 0.03 10e3/ul Normal 0.00-0.03 [facility] Comment on above: Performed By: #### C BC #### [facility] [address] [place] [address] Dr. Ashlie Hills IG % 0.2 % Normal 0.0-0.5 [facility] Comment on above: Performed By: #### C BC #### [facility] [address] [place] [address] Dr. Ashlie Hills LYMPH # 3.9 103/ul Critically high 1.2-3.8 [facility] Comment on above: Performed By: #### C BC #### [facility] [address] [place] [address] Dr. Ashlie Hills Lymphocytes/100 WBC (Bld) 31.7 % Normal 20.5-60.0 [facility] Comment on above: Performed By: #### C BC #### [facility] [address] [place] [address] Dr. Ashlie Hills MANUAL DIFF REQ NO Normal [facility] Comment on above: Performed By: #### C BC #### [facility] [address] [place] [address] Dr. Ashlie Hills MCH (RBC) [Entitic mass] 27.9 pg Normal 26.7-34.0 [facility] Comment on above: Performed By: #### C BC #### [facility] [address] [place] [address] Dr. Ashlie Hills MCHC (RBC) [Mass/Vol] 32.0 g/dL Normal 29.9-35.2 [facility] Comment on above: Performed By: #### C BC #### [facility] [address] [place] [address] Dr. Ashlie Hills MCV (RBC) [Entitic vol] 87.1 fL Normal 81.0-99.0 [facility] Comment on above: Performed By: #### C BC #### [facility] [address] [place] [address] Dr. Ashlie Hills MONO # 0.7 103/ul Normal 0.3-0.8 [facility] Comment on above: Performed By: #### C BC #### [facility] [address] [place] [address] Dr. Ashlie Hills Monocytes/100 WBC (Bld) 5.8 % Normal 1.7-12.0 [facility] Comment on above: Performed By: #### C BC #### [facility] [address] [place] [address] Dr. Ashlie Hills NEUT # 7.3 103/ul Critically high 1.4-6.5 [facility] Comment on above: Performed By: #### C BC #### [facility] [address] [place] [address] Dr. Ashlie Hills Neutrophils/100 WBC (Bld) 59.6 % Normal 43.0-75.0 [facility] Comment on above: Performed By: #### C BC #### [facility] [address] [place] [address] Dr. Ashlie Hills Platelet mean volume (Bld) [Entitic vol] 11.7 fL Normal 9.5-13.5 [facility] Comment on above: Performed By: #### C BC #### [facility] [address] [place] [address] Dr. Ashlie Hills PLT 117 103/ul Critically low 150-450 [facility] Comment on above: Performed By: #### C BC #### [facility] [address] [place] [address] Dr. Ashlie Hills RBC 5.95 106/ul Critically high 4.20-5.40 [facility] Comment on above: Performed By: #### C BC #### [facility] [address] [place] [address] Dr. Ashlie Hills WBC 12.3 103/ul Critically high 4.0-11.0 [facility] Comment on above: Performed By: #### C BC #### [facility] [address] [place] [address] ABD/PELV W Alfonzo 10-06-[address] ABD/PELV W CON EXAM: [...] RICCO PICKARD Date: 2022-10-05 13:13 Normal [facility] ER URINE PROFILEon 3 Bilirubin Ql (U) Negative Normal NEGATIVE [facility] Comment on above: Performed By: #### P OCGLUC #### [facility] [address] [place] [address] Dr. Ashlie Hills Clarity (U) CLEAR Normal CLEAR [facility] Comment on above: Performed By: #### P OCGLUC #### [facility] [address] [place] [address] Dr. Ashlie Hills Color (U) YELLOW Normal YELLOW [facility] Comment on above: Performed By: #### P OCGLUC #### [facility] [address] [place] [address] Dr. Ashlie Hills ERUAHD A micrscopic examination will be performed if indicated. Normal [facility] Comment on above: Performed By: #### P OCGLUC #### [facility] [address] [place] [address] Dr. Ashlie Hills Glucose Ql (U) Negative Normal NEGATIVE [facility] Comment on above: Performed By: #### P OCGLUC #### [facility] [address] [address] [address] Ashlie Hills Hemoglobin Ql (U) Negative Normal NEGATIVE [facility] Comment on above: Performed By: #### P OCGLUC #### [facility] [address] [address] [address] Ashlie Hills Ketones Ql (U) Negative Normal NEGATIVE [facility] Comment on above: Performed By: #### P OCGLUC #### [facility] [address] [address] [address] Ashlie Hills LEUKOCYTES Negative Normal NEGATIVE [facility] Comment on above: Performed By: #### P OCGLUC #### [facility] [address] [place] [address] Dr. Ashlie Hills Nitrite Ql (U) Negative Normal NEGATIVE [facility] Comment on above: Performed By: #### P OCGLUC #### [facility] [address] [address] [address] Ashlie Hills pH (U) 6.0 [pH] Normal 5-9 [facility] Comment on above: Performed By: #### P OCGLUC #### [facility] [address] [address] [address] Ashlie Hills Protein (U) [Mass/Vol] 100 mg/dL Abnormal NEGATIVE/ TRACE [facility] Comment on above: Performed By: #### P OCGLUC #### [facility] [address] [address] [address] Ashlie Hills SPEC GRAVITY 1.010 Normal 1.005-<=1.025 [facility] Comment on above: Performed By: #### P OCGLUC #### [facility] [address] [address] [address] Ashlie Hills UR MICRO IND INDICATED Normal [facility] Comment on above: Performed By: #### P OCGLUC #### [facility] [address] [place] [address] Dr. Ashlie Hills Urobilinogen Qn (U) 1.0 {Little'U}/dL Normal 0.2 - 1. 0 [facility] Comment on above: Performed By: #### P OCGLUC #### [facility] [address] [place] [address] Dr. Ashlie Hills LIPASEon 10-05-2022 Lipase [Catalytic activity/Vol] 1771.0 U/L Critically high 73.0-393.0 [facility] Comment on above: Performed By: #### C BC #### [facility] [address] [place] [address] Dr. Ashlie Hills PREG HCG QUALon 10-05-2022 , QUAL Negative Normal NEGATIVE [facility] Comment on above: Performed By: #### P OCGLUC #### [facility] [address] [place] [address] Dr. Ashlie Hills PROF 14(COMP METB)on 023 Albumin [Mass/Vol] 3.2 g/dL Critically low 3.4-5.0 [facility] Comment on above: Performed By: #### C BC #### [facility] [address] [place] [address] Dr. Ashlie Hills Albumin/Globulin [Mass ratio] 0.7 {ratio} Normal [facility] Comment on above: Performed By: #### C BC #### [facility] [address] [place] [address] Dr. Ahslie Hills ALP [Catalytic activity/Vol] 70 U/L Normal 46-116 [facility] Comment on above: Performed By: #### C BC #### [facility] [address] [place] [address] Dr. Ashlie Hills ALT [Catalytic activity/Vol] 11 U/L Critically low 14-59 [facility] Comment on above: Performed By: #### C BC #### [facility] [address] [place] [address] Dr. Ashlie Hills Anion gap [Moles/Vol] 10.3 mmol/L Normal [facility] Comment on above: Performed By: #### C BC #### [facility] [address] [place] [address] Dr. Ashlie Hills AST [Catalytic activity/Vol] 11 U/L Critically low 15-37 [facility] Comment on above: Performed By: #### C BC #### [facility] [address] [place] [address] Dr. Ashlie Hlils Bilirubin [Mass/Vol] 0.9 mg/dL Normal 0.2-1.0 [facility] Comment on above: Performed By: #### C BC #### [facility] [address] [place] [address] Dr. Ashlie Hills Calcium [Mass/Vol] 9.3 mg/dL Normal 8.5-10.1 [facility] Comment on above: Performed By: #### C BC #### [facility] [address] [place] [address] Dr. Ashlie Hills Chloride [Moles/Vol] 105 mmol/L Normal 98-107 [facility] Comment on above: Performed By: #### C BC #### [facility] [address] [place] [address] Dr. Ashlie Hills CO2 [Moles/Vol] 30.6 mmol/L Normal 21.0-32.0 [facility] Comment on above: Performed By: #### C BC #### [facility] [address] [place] [address] Dr. Ashlie Hills Creatinine [Mass/Vol] 0.62 mg/dL Normal 0.55-1.02 [facility] Comment on above: Performed By: #### C BC #### [facility] [address] [place] [address] Dr. Ashlie Hills EGFR-AF GHANAIAN >60 Normal >=60 [facility] Comment on above: Performed By: #### C BC #### [facility] [address] [place] [address] Dr. Ashlie Hills EGFR-NON AF GHANAIAN >60 Normal >=60 [facility] Comment on above: Performed By: #### C BC #### [facility] [address] [place] [address] Dr. Ashlie Hills Globulin (S) [Mass/Vol] 4.6 g/dL Normal [facility] Comment on above: Performed By: #### C BC #### [facility] [address] [place] [address] Dr. Ashlie Hills Glucose [Mass/Vol] 85 mg/dL Normal 74-106 [facility] Comment on above: Performed By: #### C BC #### [facility] [address] [place] [address] Dr. Ashlie Hills Potassium [Moles/Vol] 3.9 mmol/L Normal 3.5-5.1 [facility] Comment on above: Performed By: #### C BC #### [facility] [address] [place] [address] Dr. Ashlie Hills Protein [Mass/Vol] 7.8 g/dL Normal 6.4-8.2 [facility] Comment on above: Performed By: #### C BC #### [facility] [address] [place] [address] Dr. Ashlie Hills Sodium [Moles/Vol] 142 mmol/L Normal 136-145 [facility] Comment on above: Performed By: #### C BC #### [facility] [address] [place] [address] Dr. Ashlie Hills Urea nitrogen [Mass/Vol] 12.0 mg/dL Normal 7.0-18.0 [facility] Comment on above: Performed By: #### C BC #### [facility] [address] [place] [address] Dr. Ashlie Hills Urea nitrogen/Creatinine [Mass ratio] 19.4 mg/mg Normal [facility] Comment on above: Performed By: #### C BC #### [facility] [address] [place] [address] Dr. Ashlie Hills URINE MICROSCOPIC ONLYon BACTERIA TRACE Abnormal NONE SEEN [facility] Comment on above: Performed By: #### P OCGLUC #### [facility] [address] [place] [address] Dr. Ahslie Hills Bacteria identified Cx Nom (U) NOT INDICATED Normal [facility] Comment on above: Performed By: #### P OCGLUC #### [facility] [address] [place] [address] Dr. Ashlie Hills CAST NONE SEEN Normal NONE SEEN [facility] Comment on above: Performed By: #### P OCGLUC #### [facility] [address] [place] [address] Dr. Ashlie Hills Crystals LM Nom (Urine sed) NONE SEEN Normal NONE SEEN [facility] Comment on above: Performed By: #### P OCGLUC #### [facility] [address] [place] [address] Dr. Ashlie Hills Epithelial cells LM Ql (Urine sed) MODERATE Abnormal NONE SEEN /RARE [facility] Comment on above: Performed By: #### P OCGLUC #### [facility] [address] [place] [address] Dr. Ashlie Hills MUCOUS NONE SEEN Normal NONE SEEN [facility] Comment on above: Performed By: #### P OCGLUC #### [facility] [address] [place] [address] Dr. Ashlie Hills RBC 0-2 Normal 0-2 [facility] Comment on above: Performed By: #### P OCGLUC #### [facility] [address] [place] [address] Dr. Ashlie Hills WBC 0-2 Abnormal NONE SEEN [facility] Comment on above: Performed By: #### P OCGLUC #### [facility] [address] [place] [address] Dr. Ashlie Hills Covid-19 PCR ([facility])on 09-06 SARS-CoV-2 (COVID-19) RNA MADDY+probe Ql (Unsp spec) Detected Abnormal NOT DETECTED [facility] Comment on above: Result Comment: This test is not yet approved or cleared by the [place] FDA. When there are no FDA-approved or cleared tests available, and other criteria are met, FDA can make tests available under an emergency access mechanism called an Emergency Use Authorization (EUA). The EUA for this test is supported by the Supervisor Heading of Health and Human Service's declaration that [...] used). Performed By: #### C VDAGS #### [facility] [address] [place] [address] Dr. Ashlie Hills INFLUENZA A AND B AGon 09-21 [facility] SEE BELOW Normal [facility] Comment on above: Result Comment: Nega tive for Flu A protein angiten. Infection due to Flu A cannot be ruled out. Flu A angiten in the sample may be below the detection limit of the test. Performed By: #### I NFLUAB #### [facility] [address] [place] [address] Dr. Ashlie Hills [facility] Normal [facility] Comment on above: Result Comment: Nega tive for Flu B protein antigen. Infection due to Flu B cannot be ruled out. Flu B antigen in the sample may be below the detection limit of the test. Performed By: #### I NFLUAB #### [facility] [address] [place] [address] Dr. Ashlie Hills INFLUENZA A AG Negative Normal NEGATIVE SEE COMMENT [facility] Comment on above: Performed By: #### I NFLUAB #### [facility] [address] [place] [address] Dr. Ashlie Hills INFLUENZA B AG Negative Normal NEGATIVE SEE COMMENT [facility] Comment on above: Performed By: #### I NFLUAB #### [facility] [address] [place] [address] Dr. Ashlie Hills RAD - CT Reporton 07-31-2022 RAD - CT Report [id number] #[id number]:127 Normal [facility] CT ABD/PELV W CONon 07-27-19 CT ABD/PELV [...] to at least 10/21/2018, unchanged. https://www.ncbi.nlm .nih.gov/pmc/article s/[email or web address]/ Electronically authenticated by: COLLIN HUERTAS Date: 2022-07-27 14:56 Normal [facility] Reminderson 07-27-2022 Reminders - From: Raquel Tidwell To: EU - Recalls Vargas; Sent: 02/06/2022 11:45:57 EDT Show up: 07/09/2022 11:45:00 EST Subject: Ct scan Due Date/Time: 07/31/2022 11:45:00 EST Reminder/Recall Pt needs Ct scan abd/pelvis w contrast ATTN Adren[facility] scheduled prior to Aug 2022 appt. She wants [facility] order faxed to [facility] Pt scheduled for 07/27/2022 will monitor [facility] for results over the next few days Normal [facility] Physician Orderon 07-19-2022 Physician Order [id number] #[id number]:127 Normal [facility] CREATININEon 07-18-2022 Creatinine [Mass/Vol] 0.81 mg/dL Normal 0.55-1.02 [facility] Comment on above: Performed By: #### C BC #### [facility] [address] [place], [place] [address] Dr. Ashlie Hills EGFR-AF GHANAIAN >60 Normal >=60 [facility] Comment on above: Performed By: #### C BC #### [facility] [address] [place], [place] [address] Dr. Ashlie Hills EGFR-NON AF GHANAIAN >60 Normal >=60 [facility] Comment on above: Performed By: #### C #### [facility] [address] [place], [place] [address] LOW EXT W [...] PATRICIA IVAN Date: 2022-07-18 14:58 Normal [facility] XR KNEE LT 1_2 Von XR KNEE LT 1_2 V EXAM: XR [...] by: HATTIE BAUTISTA Date: 2022-07-18 12:00 Normal [facility] Covid-19 PCR ([facility])on 06-09 SARS-CoV-2 (COVID-19) RNA MADDY+probe Ql (Unsp spec) Not detected Normal NOT DETECTED [facility] Comment on above: Result Comment: This test is not yet approved or cleared by the [place] FDA. When there are no FDA-approved or cleared tests available, and other criteria are met, FDA can make tests available under an emergency access mechanism called an Emergency Use Authorization (EUA). The EUA for this test is supported by the Supervisor Heading of Health and Human Service's (HHS's) declaration [...] SARS-CoV-2. Performed By: #### C BC #### [facility] [address] [place] [address] Dr. Ashlie Hills INFLUENZA A AND B AGon 07-06 [facility] Normal [facility] Comment on above: Result Comment: Nega tive for Flu A protein angiten. Infection due to Flu A cannot be ruled out. Flu A angiten in the sample may be below the detection limit of the test. Performed By: #### C BC #### [facility] [address] [place] [address] Dr. Ashlie Hills INFLUBNEG SEE BELOW Normal [facility] Comment on above: Result Comment: Nega tive for Flu B protein antigen. Infection due to Flu B cannot be ruled out. Flu B antigen in the sample may be below the detection limit of the test. Performed By: #### C BC #### [facility] [address] [place] [address] Dr. Ashlie Hills INFLUENZA A AG Negative Normal NEGATIVE SEE COMMENT [facility] Comment on above: Performed By: #### C BC #### [facility] [address] [place] [address] Dr. Ashlie Hills INFLUENZA B AG Negative Normal NEGATIVE SEE COMMENT [facility] Comment on above: Performed By: #### C BC #### [facility] [address] [place], [place] [id number] Dr. Ashlie Hills POINT OF CARE GLUCOSEon 10-1 Glucose [Mass/Vol] 108 mg/dL Critically high 74-106 [facility] Comment on above: Performed By: #### C BC #### [facility] [address] [place] [address] Dr. Ashlie Hills RAGHU by IFAon 03-07-2022 Antinuclear Antibodies, IFA Negative Normal [facility] Comment on above: Result Comment: Nega tive <1:80 Borderline 1:80 Positive >1:80 ICAP nomenclature: AC-0 For more information about Hep-2 cell patterns use ANApatterns.org, the official website for the International Consensus on Antinuclear Antibody (RAGHU) Patterns (ICAP). Performed By: #### A NAIFA #### [facility] [address] [place] [address] Dr. Ashlie Hills IMMUNOFIXATION (TREVON), URINEo n 03-07-2022 TREVON Interpretation:U Comment Normal [facility] Comment on above: Result Comment: No m onoclonality detected. Performed By: #### C BC #### [facility] [address] [place] [address] Dr. Ashlie Hills IMMUNOFIXATION(TREVON),PROTEIN ELEC(PE),FREon 03-07-2022 Albumin [Mass/Vol] 3.0 g/dL Normal 2.9-4.4 [facility] Comment on above: Performed By: #### I NFLUAB #### [facility] [address] [place] [address] Dr. Ashlie Hills Albumin/Globulin [Mass ratio] 0.8 {ratio} Normal 0.7-1.7 [facility] Comment on above: Performed By: #### I NFLUAB #### [facility] [address] [place] [address] Dr. Ashlie Hills Qtdkf-6-Rtlizmdv 0.3 g/dL Normal 0.0-0.4 [facility] Comment on above: Performed By: #### I NFLUAB #### [facility] [address] [place] [address] Dr. Ashlie Hills Ggkrl-5-Qnvilgtv 1.0 g/dL Normal 0.4-1.0 [facility] Comment on above: Performed By: #### I NFLUAB #### [facility] [address] [place] [address] [address] Ashlie Hills Beta Globulin 1.8 g/dL Critically high 0.7-1.3 [facility] Comment on above: Performed By: #### I NFLUAB #### [facility] [address] [place] [address] Dr. Ashlie Hills Free [place] Lt Chains,S 45.2 mg/L Critically high 3.3-19.4 [facility] Comment on above: Performed By: #### I NFLUAB #### [facility] [address] [place] [address] Dr. Ashlie Hills Free Lambda Lt Chains,S 40.3 mg/L Critically high 5.7-26.3 [facility] Comment on above: Performed By: #### I NFLUAB #### [facility] [address] [place] [address] Dr. Ashlie Hills Gamma Globulin 0.8 g/dL Normal 0.4-1.8 [facility] Comment on above: Performed By: #### I NFLUAB #### [facility] [address] [place] [address] Dr. Ashlie Hills Globulin (S) [Mass/Vol] 3.9 g/dL Normal 2.2-3.9 [facility] Comment on above: Performed By: #### I NFLUAB #### [facility] [address] [place] [address] Dr. Ashlie Hills Immunofixation Result, Serum Comment Normal [facility] Comment on above: Result Comment: No m onoclonality detected. Performed By: #### I NFLUAB #### [facility] [address] [address] [address] Ashlie Hills Immunoglobulin A, Qn, Serum 776 mg/dL Critically high 87-352 [facility] Comment on above: Performed By: #### I NFLUAB #### [facility] [address] [address] [address] Ashlie Hills Immunoglobulin G, Qn, Serum 955 mg/dL Normal 586-1602 [facility] Comment on above: Performed By: #### I NFLUAB #### [facility] [address] [address] [address] Ashlie Hills Immunoglobulin M, Qn, Serum 39 mg/dL Normal 26-217 [facility] Comment on above: Performed By: #### I NFLUAB #### [facility] [address] [address] [address] Ashlie Hills [place]/Lambda Ratio, S 1.12 Normal 0.26-1.65 [facility] Comment on above: Performed By: #### I NFLUAB #### [facility] [address] [address] [address] Ashlie Hills M-Bright Not Observed Normal Not Observed [facility] Comment on above: Performed By: #### I NFLUAB #### [facility] [address] [place] [address] Dr. Ashlie Hills PDF . Normal [facility] Comment on above: Performed By: #### I NFLUAB #### [facility] [address] [address] [address] Ashlie Hills Please note: Comment Normal [facility] Comment on above: Result Comment: Prot ein electrophoresis scan will follow via computer, mail, or sheet metal welder delivery. Performed By: #### I NFLUAB #### [facility] [address] [address] [address] Ashlie Hills Protein [Mass/Vol] 6.9 g/dL Normal 6.0-8.5 [facility] Comment on above: Performed By: #### I NFLUAB #### [facility] [address] [address] [address] Ashlie Hills C-PEPTIDE, SERUMon C-Peptide, Serum 3.1 ng/mL Normal 1.1-4.4 [facility] Comment on above: Result Comment: C-Pe ptide reference interval is for fasting patients. Performed By: #### C PEPT #### [facility] [address] [address] [address] Ashlie Hills HEP B SURFACE ANTIGEN SCREEN on 03-04-2022 HBsAg Screen Negative Normal Negative [facility] Comment on above: Performed By: #### C BC #### [facility] [address] [address] [address] Ashlie Hills HEPATITIS C VIRUS AB W/ REFL EX QUANTon 03-04-2022 HCV AB <0.1 Normal 0.0-0.9 [facility] Comment on above: Performed By: #### I NFLUAB #### [facility] [address] [place] [address] Dr. Ashlie Hills Interpretation: Comment Normal [facility] Comment on above: Result Comment: Nega tive Not infected with HCV, unless recent infection is suspected or other evidence exists to indicate HCV infection. Performed By: #### I NFLUAB #### [facility] [address] [address] [address] Ashlie Hills MICROALBUMIN/ CREATININE RAT IOon 03-04-2022 Albumin, Urine 367.4 ug/mL Normal Not Estab. [facility] Comment on above: Performed By: #### C BC #### [facility] [address] [address] [address] Ashlie Hills Albumin/ Creatinine Ratio 239 mg/g creat Critically high 0-29 [facility] Comment on above: Result Comment: Norm al: 0 - 29 Moderately increased: 30 - 300 Severely increased: >300 Performed By: #### C BC #### [facility] [address] [place] [address] Dr. Ashlie Hills Creatinine, Urine 153.9 mg/dL Normal Not Estab. [facility] Comment on above: Performed By: #### C BC #### [facility] [address] [address] [address] Ashlie Hills VIT D 25-OH LABCORPon 2021 Vitamin D, 25-Hydroxy <4.0 Critically low 30.0-100.0 [facility] Comment on above: Result Comment: Graciela min D deficiency has been defined by the [place] [employer] and an Endocrine Society practice guideline as a level of serum 25-OH vitamin D less than 20 ng/mL (1,2). The Endocrine Society went on to further define vitamin D insufficiency as a level between 21 and 29 ng/mL (2). 1. IOM ([place] [employer]). 2010. Dietary reference intakes for calcium and D. [place]: The National Academies Press. 2. Lynda MF, Keely [place], Leandra LOPEZ, et al. Evaluation, treatment, and prevention of vitamin D deficiency: an Endocrine Society clinical practice guideline. JCEM. 2010; 96(7):1911-30. Performed By: #### C BC #### [facility] [address] [place] [address] Dr. Ashlie Hills GLYCOHEMOGLOBIN A1Con 2021 ADA RECOMMENDATION SEE BELOW Normal [facility] Comment on above: Result Comment: ADA RECOMMENDED LIMIT 4.0 - 6.0 ADA THERAPEUTIC TARGET < 7.0 ACTION SUGGESTED > 7.0 Performed By: #### C VDAGS #### [facility] [address] [address] [address] Ashlie Hills Glucose [Mass/Vol] 295 mg/dL Normal [facility] Comment on above: Performed By: #### C VDAGS #### [facility] [address] [address] [address] Ashlie Hills HbA1c (Bld) [Mass fraction] 11.9 % Critically high 4.5-6.2 [facility] Comment on above: Performed By: #### C VDAGS #### [facility] [address] [place] [address] Dr. Ashlie Hills HEMOGRAM AND PLATELon 2021 Hematocrit (Bld) [Volume fraction] 56.3 % Critically high 36.0-48.0 [facility] Comment on above: Performed By: #### C VDAGS #### [facility] [address] [place] [address] Dr. Ashlie Hills Hemoglobin (Bld) [Mass/Vol] 18.0 g/dL Critically high 12.0-16.0 [facility] Comment on above: Performed By: #### C VDAGS #### [facility] [address] [place] [address] Dr. Ashlie Hills MCH (RBC) [Entitic mass] 29.5 pg Normal 26.7-34.0 [facility] Comment on above: Performed By: #### C VDAGS #### [facility] [address] [place] [address] Dr. Ashlie Hills MCHC (RBC) [Mass/Vol] 32.0 g/dL Normal 29.9-35.2 [facility] Comment on above: Performed By: #### C VDAGS #### [facility] [address] [place] [address] Dr. Ashlie Hills MCV (RBC) [Entitic vol] 92.1 fL Normal 81.0-99.0 [facility] Comment on above: Performed By: #### C VDAGS #### [facility] [address] [place] [address] Dr. Ashlie Hills PLT 123 103/ul Critically low 150-450 [facility] Comment on above: Performed By: #### C VDAGS #### [facility] [address] [place] [address] Dr. Ashlie Hills RBC 6.11 106/ul Critically high 4.20-5.40 [facility] Comment on above: Performed By: #### C VDAGS #### [facility] [address] [place] [address] Dr. Ashlie Hills WBC 16.4 103/ul Critically high 4.0-11.0 [facility] Comment on above: Performed By: #### C VDAGS #### [facility] [address] [place] [address] Dr. Ashlie Hills LIPID PROFILEon 03-03-2022 CHOL-HDL RATIO NORM SEE BELOW Normal [facility] Comment on above: Result Comment: 3.3 - 4.4 LOW RISK 4.4 - 7.1 AVERAGE RISK 7.1 - 11.0 MODERATE RISK >11.0 HIGH RISK Performed By: #### C VDAGS #### [facility] [address] [address] [address] Ashlie Hills Cholesterol [Mass/Vol] 159 mg/dL Normal <=200 [facility] Comment on above: Performed By: #### C VDAGS #### [facility] [address] [address] [address] Ashlie Hills Cholesterol in HDL [Mass/Vol] 40 mg/dL Normal 40-60 [facility] Comment on above: Performed By: #### C VDAGS #### [facility] [address] [address] [address] Ashlie Hills Cholesterol in LDL [Mass/Vol] 81.8 mg/dL Normal [facility] Comment on above: Performed By: #### C VDAGS #### [facility] [address] [address] [address] Ashlie Hills Cholesterol.total/Ch olesterol in HDL [Mass ratio] 4.0 {ratio} Normal [facility] Comment on above: Performed By: #### C VDAGS #### [facility] [address] [address] [address] Ashlie Hills HDL NORMAL > or = 60 mg/dl - LOW CARDIOVASCULAR RISK <40 mg/dl - HIGH CARDIOVASCULAR RISK Normal [facility] Comment on above: Performed By: #### C VDAGS #### [facility] [address] [address] [address] Ashlie Hills LDL CALC NORMAL SEE BELOW Normal [facility] Comment on above: Result Comment: <100 mg/dl OPTIMAL 100 - 129 mg/dl NEAR OR ABOVE OPTIMAL 130 - 159 mg/dl BORDERLINE HIGH 160 - 189 mg/dl HIGH >190 mg/dl VERY HIGH Performed By: #### C VDAGS #### [facility] [address] [address] [address] Ashlie Hills Triglyceride [Mass/Vol] 186 mg/dL Critically high <=150 [facility] Comment on above: Performed By: #### C VDAGS #### [facility] [address] [place] [address] Dr. Ashlie Hills VLDL CALC 37.2 mg/dL Normal [facility] Comment on above: Performed By: #### C VDAGS #### [facility] [address] [place] [address] Dr. Ashlie Hills RENAL FUNCTION PANELon 03-03 Albumin [Mass/Vol] 3.1 g/dL Critically low 3.4-5.0 [facility] Comment on above: Performed By: #### C BC #### [facility] [address] [place] [address] Dr. Ashlie Hills Calcium [Mass/Vol] 9.2 mg/dL Normal 8.5-10.1 [facility] Comment on above: Performed By: #### C BC #### [facility] [address] [place] [address] Dr. Ashlie Hills Chloride [Moles/Vol] 102 mmol/L Normal 98-107 [facility] Comment on above: Performed By: #### C BC #### [facility] [address] [place] [address] Dr. Ashlie Hills CO2 [Moles/Vol] 31.9 mmol/L Normal 21.0-32.0 [facility] Comment on above: Performed By: #### C BC #### [facility] [address] [place] [address] Dr. Ashlie Hills Creatinine [Mass/Vol] 0.68 mg/dL Normal 0.55-1.02 [facility] Comment on above: Performed By: #### C BC #### [facility] [address] [place] [address] Dr. Ashlie Hills EGFR-AF GHANAIAN >60 Normal >=60 [facility] Comment on above: Performed By: #### C BC #### [facility] [address] [place] [address] Dr. Ashlie Hills EGFR-NON AF GHANAIAN >60 Normal >=60 [facility] Comment on above: Performed By: #### C BC #### [facility] [address] [address] [address] Ashlie Hills Glucose [Mass/Vol] 131 mg/dL Critically high 74-106 [facility] Comment on above: Performed By: #### C BC #### [facility] [address] [address] [address] Ashlie Hills Phosphate [Mass/Vol] 4.0 mg/dL Normal 2.6-4.7 [facility] Comment on above: Performed By: #### C BC #### [facility] [address] [address] [address] Ashlie Hills Potassium [Moles/Vol] 4.0 mmol/L Normal 3.5-5.1 [facility] Comment on above: Performed By: #### C BC #### [facility] [address] [place] [address] Dr. Ashlie Hills Sodium [Moles/Vol] 141 mmol/L Normal 136-145 [facility] Comment on above: Performed By: #### C BC #### [facility] [address] [address] [address] Ashlie Hills Urea nitrogen [Mass/Vol] 17.0 mg/dL Normal 7.0-18.0 [facility] Comment on above: Performed By: #### C BC #### [facility] [address] [place] [address] Dr. Ashlie Hills UA RANDOM W/MICROSCOPICon BACTERIA NONE SEEN Normal NONE SEEN [facility] Comment on above: Performed By: #### I NFLUAB #### [facility] [address] [place] [address] Dr. Ashlie Hills Bilirubin Ql (U) Negative Normal NEGATIVE [facility] Comment on above: Performed By: #### I NFLUAB #### [facility] [address] [place] [address] Dr. Ashlie Hills CAST NONE SEEN Normal NONE SEEN [facility] Comment on above: Performed By: #### I NFLUAB #### [facility] [address] [place] [address] Dr. Ashlie Hills Clarity (U) CLEAR Normal CLEAR [facility] Comment on above: Performed By: #### I NFLUAB #### [facility] [address] [place] [address] Dr. Ashlie Hills Color (U) YELLOW Normal YELLOW [facility] Comment on above: Performed By: #### I NFLUAB #### [facility] [address] [place] [address] Dr. Ashlie Hills Crystals LM Nom (Urine sed) NONE SEEN Normal NONE SEEN [facility] Comment on above: Performed By: #### I NFLUAB #### [facility] [address] [place] [address] Dr. Ashlie Hills Epithelial cells LM Ql (Urine sed) FEW Abnormal NONE SEEN /RARE [facility] Comment on above: Performed By: #### I NFLUAB #### [facility] [address] [place] [address] Dr. Ashlie Hills Glucose Ql (U) Negative Normal NEGATIVE [facility] Comment on above: Performed By: #### I NFLUAB #### [facility] [address] [place] [address] Dr. Ashlie Hills Hemoglobin Ql (U) Negative Normal NEGATIVE [facility] Comment on above: Performed By: #### I NFLUAB #### [facility] [address] [place] [address] Dr. Ashlie Hills Ketones Ql (U) Negative Normal NEGATIVE [facility] Comment on above: Performed By: #### I NFLUAB #### [facility] [address] [place] [address] Dr. Ashlie Hills LEUKOCYTES Negative Normal NEGATIVE [facility] Comment on above: Performed By: #### I NFLUAB #### [facility] [address] [place] [address] Dr. Ashlie Hills MUCOUS NONE SEEN Normal NONE SEEN [facility] Comment on above: Performed By: #### I NFLUAB #### [facility] [address] [place] [address] Dr. Ashlie Hills Nitrite Ql (U) Negative Normal NEGATIVE [facility] Comment on above: Performed By: #### I NFLUAB #### [facility] [address] [place] [address] Dr. Ashlie Hills pH (U) 5.5 [pH] Normal 5-9 [facility] Comment on above: Performed By: #### I NFLUAB #### [facility] [address] [place] [address] Dr. Ashlie Hills RBC 0-2 Normal 0-2 [facility] Comment on above: Performed By: #### I NFLUAB #### [facility] [address] [place] [address] Dr. Ashlie Hills SPEC GRAVITY >=1.030 Abnormal 1.005-<=1.025 [facility] Comment on above: Performed By: #### I NFLUAB #### [facility] [address] [place] [address] Dr. Ashlie Hills UA PROTEIN 100 mg/dl Abnormal NEGATIVE/ TRACE [facility] Comment on above: Performed By: #### I NFLUAB #### [facility] [address] [place] [address] Dr. Ashlie Hills Urobilinogen Qn (U) 0.2 {Little'U}/dL Normal 0.2 - 1. 0 [facility] Comment on above: Performed By: #### I NFLUAB #### [facility] [address] [place] [address] Dr. Ashlie Hills WBC NONE SEEN Normal NONE SEEN [facility] Comment on above: Performed By: #### I NFLUAB #### [facility] [address] [place] [address] Dr. Ashlie Hills URIC ACID SERUMon 03-03-2022 Urate [Mass/Vol] 5.0 mg/dL Normal 2.6-6.0 [facility] Comment on above: Performed By: #### I NFLUAB #### [facility] [address] [place] [address] Dr. Ashlie Hills URINE T PROTEIN CREAT RATIOo n 03-03-2022 Protein (U) [Mass/Vol] 77.9 mg/dL Critically high <=12.0 [facility] Comment on above: Performed By: #### C VDAGS #### [facility] [address] [address] [address] Ashlie Hills UR PROT CREAT RAT 0.44 Normal [facility] Comment on above: Performed By: #### C VDAGS #### [facility] [id number] Ashlie Hills URINE CREAT 175.15 mg/dL Normal 20.00-300.00 [facility] Comment on above: Performed By: #### C VDAGS #### [facility] [address] [address] [address] 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 Smoker Adrenal mass 1 cm to 4 cm in diameter Other obstructive and reflux uropathy Tests Performed Urnls Dip Stick Auto w/o Microscopy POC [address]74 CT Abdomen/Pelvis w/ Contrast -- Results Pending [...] A/P Where: [facility] [address], [facility] [place] [id number]- [id number] Medications What How Much When Instructions Unchanged [...] Urnls Dip Stick Auto w/o Microscopy POC 27139 (02/06/2022) Bilirubin Urine Dipstick - Negative Blood Urine Dipstick - Negative Glucose Urine Dipstick - 2+ 500 mg/dl Ketones Urine Dipstick - Negative Leukocytes Urine Dipstick - Negative Nitrite Urine Dipstick - Negative Protein Urine Dipstick - 3+ (300 mg/dl) Specific [place] Urine Dipstick - >=1.030 Urine Appearance Urine [...] is caused (more content not included)... Normal [facility] Patient Educationon 02-07-20 Patient Education Obstetrics and [...] Take ove (more content not included)... Normal [facility] Urology Office/Clinic Noteon 02-06-2022 Urology Office/Clinic Note [...] of protein. Recommended pt to see a boiler control technician due to high protein levels in the urine. All questions/concerns were discussed. Pt to call office if she encounters any issues prior. Pt acknowledges understanding. Other obstructive and reflux uropathy (N13.8: Other obstructive and reflux uropathy) Follow-up With When Contact Information REGLA PHIPPS, GEMA Vicente In 6 months [facility] [address] [place] [address]- [phone] Additional Instructions: w/ repeat CT A/P Patient [...] flank pain (more content not included)... Normal [facility] Comment on above: Result Comment: Elec tronically Signed By: Elbert VARGAS MD\.br\Date and Time Signed: 02/06/22 11:45 EDT\.br\Electronically Co-Signed By: Enedelia Mendoza\.br\Date and Time Co-Signed: 02/06/22 11:42 EDT CULTURE URINEon 12-25-2021 CULTURE URINE Culture Observations: GREATER THAN TWO ORGANISMS PRESENT, HEAVILY MIXED. PLEASE RESUBMIT CLEAN CATCH MID-STREAM URINE IF CLINICALLY INDICATED. Normal [facility] Comment on above: Performed By: #### I NFLUAB #### [facility] [address] [place] [address] Dr. Ashlie Hills CBC AUTO DIFFon 12-24-2021 BASO # 0.1 103/ul Normal 0.0-0.1 [facility] Comment on above: Performed By: #### C BC #### [facility] [address] [place] [address] Dr. Ashlie Hills Basophils/100 WBC (Bld) 0.5 % Normal 0.2-2.0 [facility] Comment on above: Performed By: #### C BC #### [facility] [address] [place] [address] Dr. Ashlie Hills EO # 0.4 103/ul Normal 0.0-0.7 [facility] Comment on above: Performed By: #### C BC #### [facility] [address] [place] [address] Dr. Ashlie Hills Eosinophils/100 WBC (Bld) 2.4 % Normal 0.9-7.0 [facility] Comment on above: Performed By: #### C BC #### [facility] [address] [place] [address] Dr. Ashlie Hills Erythrocyte distribution width (RBC) [Ratio] 14.1 % Normal 11.0-15.0 [facility] [place] [facility] Comment on above: Performed By: #### C BC #### [facility] [address] [address] [address] Ashlie Hills Hematocrit (Bld) [Volume fraction] 55.9 % Critically high 36.0-48.0 [facility] Comment on above: Performed By: #### C BC #### [facility] [address] [place] [address] Dr. Ashlie Hills Hemoglobin (Bld) [Mass/Vol] 17.9 g/dL Critically high 12.0-16.0 [facility] Comment on above: Performed By: #### C BC #### [facility] [address] [place] [address] Dr. Ashlie Hills IG # 0.06 10e3/ul Critically high 0.00-0.03 [facility] Comment on above: Performed By: #### C BC #### [facility] [address] [place] [address] Dr. Ashlie Hills IG % 0.4 % Normal 0.0-0.5 [facility] Comment on above: Performed By: #### C BC #### [facility] [address] [place] [address] Dr. Ashlie Hills LYMPH # 5.8 103/ul Critically high 1.2-3.8 [facility] Comment on above: Performed By: #### C BC #### [facility] [address] [place] [address] Dr. Ashlie Hills Lymphocytes/100 WBC (Bld) 35.4 % Normal 20.5-60.0 [facility] Comment on above: Performed By: #### C BC #### [facility] [address] [place] [address] Dr. Ashlie Hills MANUAL DIFF REQ NO Normal [facility] Comment on above: Performed By: #### C BC #### [facility] [address] [place] [address] Dr. Ashlie Hills MCH (RBC) [Entitic mass] 29.4 pg Normal 26.7-34.0 [facility] Comment on above: Performed By: #### C BC #### [facility] [address] [address] [address] Ashlie Hills MCHC (RBC) [Mass/Vol] 32.0 g/dL Normal 29.9-35.2 [facility] Comment on above: Performed By: #### C BC #### [facility] [address] [address] [address] Ashlie Hills MCV (RBC) [Entitic vol] 91.8 fL Normal 81.0-99.0 [facility] Comment on above: Performed By: #### C BC #### [facility] [address] [address] [address] Ashlie Hills MONO # 0.8 103/ul Normal 0.3-0.8 [facility] Comment on above: Performed By: #### C BC #### [facility] [address] [place] [address] Dr. Ashlie Hills Monocytes/100 WBC (Bld) 4.8 % Normal 1.7-12.0 [facility] Comment on above: Performed By: #### C BC #### [facility] [address] [address] [address] Ashlie Hills NEUT # 9.3 103/ul Critically high 1.4-6.5 [facility] Comment on above: Performed By: #### C BC #### [facility] [address] [address] [address] Ashlie Hills Neutrophils/100 WBC (Bld) 56.5 % Normal 43.0-75.0 [facility] Comment on above: Performed By: #### C BC #### [facility] [address] [address] [address] Ashlie Hills Platelet mean volume (Bld) [Entitic vol] 12.9 fL Normal 9.5-13.5 [facility] Comment on above: Performed By: #### C BC #### [facility] [address] [address] [address] Ashlie Hills PLT 127 103/ul Critically low 150-450 [facility] Comment on above: Performed By: #### C BC #### [facility] [address] [place], [place] [address] Dr. Ashlie Hills RBC 6.09 106/ul Critically high 4.20-5.40 [facility] Comment on above: Performed By: #### C BC #### [facility] [address] [place], [place] [address] Dr. Ashlie Hills WBC 16.4 103/ul Critically high 4.0-11.0 [facility] Comment on above: Performed By: #### C BC #### [facility] [address] [place], [place] [address] ABD/PELVIS WO CONon [...] Severe right hip degenerative change. Normal [facility] ER URINE PROFILEon 2 Bilirubin Ql (U) Negative Normal NEGATIVE [facility] Comment on above: Performed By: #### Tracey LYMAN ICRO #### [facility] [address] [place] [address] Dr. Ashlie Hills Clarity (U) CLEAR Normal CLEAR [facility] Comment on above: Performed By: #### Tracey LYMAN UMICRO #### [facility] [address] [place] [address] Dr. Ashlie Hills Color (U) DK. ORANGE Abnormal YELLOW [facility] Comment on above: Performed By: #### E NURA UMICRO #### [facility] [address] [place] [address] Dr. Ashlie Hills ERUAHD A micrscopic examination will be performed if indicated. Normal [facility] Comment on above: Performed By: #### E NURA UMICRO #### [facility] [address] [address] [address] Ashlie Hills Glucose Ql (U) 250 mg/dl Abnormal NEGATIVE [facility] Comment on above: Performed By: #### E JIMMYR, UMICRO #### [facility] [address] [place] [address] Dr. Ashlie Hills Hemoglobin Ql (U) Negative Normal NEGATIVE [facility] Comment on above: Performed By: #### MADELINE DIAZRO #### [facility] [address] [place] [address] Dr. Ashlie Hills Ketones Ql (U) Negative Normal NEGATIVE [facility] Comment on above: Performed By: #### MADELINE DIAZRO #### [facility] [address] [place] [address] Dr. Ashlie Hills LEUKOCYTES Negative Normal NEGATIVE [facility] Comment on above: Performed By: #### MADELINE DIAZRO #### [facility] [address] [place] [address] Dr. Ashlie Hills Nitrite Ql (U) Negative Normal NEGATIVE [facility] Comment on above: Performed By: #### MADELINE DIAZRO #### [facility] [address] [place] [address] Dr. Ashlie Hills pH (U) 5.0 [pH] Normal 5-9 [facility] Comment on above: Performed By: #### MADELINE DIAZRO #### [facility] [address] [place] [address] Dr. Ashlie Hills Protein (U) [Mass/Vol] 100 mg/dL Abnormal NEGATIVE/ TRACE [facility] Comment on above: Performed By: #### MADELINE DIAZRO #### [facility] [address] [place] [address] Dr. Ashlie Hills SPEC GRAVITY >=1.030 Abnormal 1.005-<=1.025 [facility] Comment on above: Performed By: #### MADELINE DIAZRO #### [facility] [address] [place] [address] Dr. Ashlie Hills UR MICRO IND INDICATED Normal [facility] Comment on above: Performed By: #### EVONNE DIAZ #### [facility] [address] [place] [address] Dr. Ashlie Hills Urobilinogen Qn (U) 1.0 {Little'U}/dL Normal 0.2 - 1. 0 [facility] Comment on above: Performed By: #### EVONNE DIAZ #### [facility] [address] [address] [address] Ashlie Hills PROF CHEM 8 (BAS METB)on Anion gap [Moles/Vol] 12.1 mmol/L Normal [facility] Comment on above: Performed By: #### I NFLUAB #### [facility] [address] [address] [address] Ashlie Hills Calcium [Mass/Vol] 9.0 mg/dL Normal 8.5-10.1 [facility] Comment on above: Performed By: #### I NFLUAB #### [facility] [address] [place] [address] Dr. Ashlie Hills Chloride [Moles/Vol] 101 mmol/L Normal 98-107 [facility] Comment on above: Performed By: #### I NFLUAB #### [facility] [address] [address] [address] Ashlie Hills CO2 [Moles/Vol] 29.1 mmol/L Normal 21.0-32.0 [facility] Comment on above: Performed By: #### I NFLUAB #### [facility] [address] [place] [address] Dr. Ashlie Hills Creatinine [Mass/Vol] 0.86 mg/dL Normal 0.55-1.02 [facility] Comment on above: Performed By: #### I NFLUAB #### [facility] [address] [place] [address] Dr. Ashlie Hills EGFR-AF GHANAIAN >60 Normal >=60 [facility] Comment on above: Performed By: #### I NFLUAB #### [facility] [address] [place] [address] Dr. Ashlie Hills EGFR-NON AF GHANAIAN >60 Normal >=60 [facility] Comment on above: Performed By: #### I NFLUAB #### [facility] [address] [address] [address] Ashlie Hills Glucose [Mass/Vol] 236 mg/dL Critically high 74-106 [facility] Comment on above: Performed By: #### I NFLUAB #### [facility] [address] [place] [address] Dr. Ashlie Hills Potassium [Moles/Vol] 4.2 mmol/L Normal 3.5-5.1 [facility] Comment on above: Performed By: #### I NFLUAB #### [facility] [address] [place] [address] Dr. Ashlie Hills Sodium [Moles/Vol] 138 mmol/L Normal 136-145 [facility] Comment on above: Performed By: #### I NFLUAB #### [facility] [address] [place] [address] Dr. Ashlie Hills Urea nitrogen [Mass/Vol] 11.0 mg/dL Normal 7.0-18.0 [facility] Comment on above: Performed By: #### I NFLUAB #### [facility] [address] [place] [address] Dr. Ashlie Hills Urea nitrogen/Creatinine [Mass ratio] 12.8 mg/mg Normal [facility] Comment on above: Performed By: #### I NFLUAB #### [facility] [address] [place] [address] Dr. Ashlie Hills URINE MICROSCOPIC ONLYon BACTERIA SMALL Abnormal NONE SEEN [facility] Comment on above: Performed By: #### Tracey LYMAN UMICRO #### [facility] [address] [place] [address] Dr. Ashlie Hills Bacteria identified Cx Nom (U) INDICATED Normal [facility] Comment on above: Performed By: #### Tracey LYMAN UMHARRIETRO #### [facility] [address] [place] [address] Dr. Ashlie Hills CAST NONE SEEN Normal NONE SEEN [facility] Comment on above: Performed By: #### MADELINE DIAZRO #### [facility] [address] [place] [address] Dr. Ashlie Hills Crystals LM Nom (Urine sed) NONE SEEN Normal NONE SEEN [facility] Comment on above: Performed By: #### E RUR, UMICRO #### [facility] [address] [place] [address] Dr. Ashlie Hills Epithelial cells LM Ql (Urine sed) MODERATE Abnormal NONE SEEN /RARE [facility] Comment on above: Performed By: #### E RUR, UMICRO #### [facility] [address] [place] [address] Dr. Ashlie Hills MUCOUS NONE SEEN Normal NONE SEEN [facility] Comment on above: Performed By: #### E RUR, UMICRO #### [facility] [address] [place] [address] Dr. Ashlie Hills RBC 0-2 Normal 0-2 [facility] Comment on above: Performed By: #### E RUR, UMICRO #### [facility] [address] [place] [address] Dr. Ashlie Hills WBC 0-2 Abnormal NONE SEEN [facility] Comment on above: Performed By: #### E RUR, UMICRO #### [facility] [address] [place] [address] Dr. Ashlie Hills YEAST PRESENT Abnormal NONE SEEN [facility] Comment on above: Performed By: #### E RUR, UMICRO #### [facility] [address] [place] [address] Dr. Ashlie Hills HIP RIGHT 1 OR 2 VWS WITH PE LVISon 07-20-2020 HIP RIGHT 1 OR 2 VWS WITH PELVIS [facility] Department of Radiology [address] [place] [address] Patient Name: MITZI MACIAS : 1970 Sex: F Age: Race: White Pt. Location: Patient Status: O Ordered Date: 07/20/2020 1:45:00 PM Completed Date: 07/20/2020 01:57 PM Requesting Provider: LIZ EISENBERG Attending Provider: LIZ EISENBERG Report Copy To: WAN MCKAYLA Signs & Symptoms: M25.551 Pain in right hip I10 History: [place] Comments: evaluate Exam: HIP RIGHT 1 OR [...] MRI. Electronically signed: Pipo Acevedo. Transcribed by: [id number], User Resident: Electronically Signed by: PIPO ACEVEDO @ 07/20/2020 03:45 PM Normal [facility] Comment on above: Order Comment: evalu ate Vital Signs Date Time Vital Sign Value Performing Clinician Facility 03-08-2022 15:00-0400 Body height 170.18 cm Stephanie Tico Other [facility] Other 03-08-2022 15:00-0400 Body temperature 97.6 [degF] Stephanie Tico Other [facility] Other 03-08-2022 15:00-0400 Diastolic blood pressure 72 mm[Hg] Stephanie Tico Other [facility] Other 03-08-2022 15:00-0400 Respiratory rate 20 /min Stephanie Tico Other [facility] Other 03-08-2022 15:00-0400 SaO2% (BldA) [Mass fraction] 91 % Stephanie Tico Other [facility] Other 03-08-2022 15:00-0400 Systolic blood pressure 131 mm[Hg] Stephanie Tico Other [facility] Other 02-20-2022 09:20-0400 Body height 170.18 cm Stephanie Tico Other [facility] Other 02-20-2022 09:20-0400 Body temperature 96.5 [degF] Stephanie Tico Other Shortlist Other 02-20-2022 09:20-0400 Diastolic blood pressure 69 mm[Hg] Stephanie Tico Other Shortlist Other 02-20-2022 09:20-0400 Respiratory rate 20 /min Stephanie Tico Other Shortlist Other 02-20-2022 09:20-0400 SaO2% (BldA) [Mass fraction] 91 % Stephanie Tico Other Shortlist Other 02-20-2022 09:20-0400 Systolic blood pressure 129 mm[Hg] Stephanie Tico Other Shortlist Other 02-06-2022 10:24-0400 Blood Pressure Location Elbert VARGAS [facility] 02-06-2022 10:24-0400 Diastolic blood pressure 76 mm[Hg] Elbert VARGAS [facility] 02-06-2022 10:24-0400 Heart rate 70 /min Elbert VARGAS [facility] 02-06-2022 10:24-0400 Respiratory rate 16 /min Elbert VARGAS [facility] 02-06-2022 10:24-0400 Systolic blood pressure 134 mm[Hg] Elbert VARGAS [facility] Encounters Encounter Date Encounter Type Care Provider Facility Start: 04-22-2024 ambulatory GAVIOTA Wilkerson ty:SHEA Villalobos Start: 11-15-2023 End: 11-15-2023 ambulatory MCKAYLA AICHHOLZ Not Available Start: 11-14-2023 End: 11-14-2023 ambulatory [facility] Start: 11-01-2023 End: 11-01-2023 ambulatory MCKAYLA AICHHOLZ Not Available Start: 09-27-2023 End: 09-27-2023 ambulatory MCKAYLA AICHHOLZ Not Available Start: 08-17-2023 Refill Mckayla Aichholz [employer]ENTAL [employer] Work Phone: [facility] Comment on above: Vaginal yeast infect ion (Primary Dx) Start: 08-14-2023 Refill Mckayla Aichholz [employer]ENTAL [employer]IVER Work Phone: [facility] Comment on above: Type 2 diabetes asiya itus with unspecified complications (CMS/HCC); Edema, unspecified; Edema Start: 07-10-2023 End: 07-10-2023 ambulatory MCKAYLA AICHHOLZ Not Available Start: 12-05-2022 ambulatory NARENDRANATH LAKSHMIPATHY . Facility:[facility] Start: 12-05-2022 End: 12-06-2022 Evaluation and management of inpatient UMBERTO CANTU . Facility:[facility] Start: 11-23-2022 End: 11-23-2022 ambulatory SAYDA BLAS Facility:[facility] Start: 11-22-2022 End: 11-23-2022 ambulatory SAYDA BLAS Facility:[facility] Start: 11-17-2022 End: 11-18-2022 ambulatory SUBHASH GASPAR . Facility:[facility] Start: 11-15-2022 End: 11-16-2022 ambulatory GAVIOTA VEGA Facility:[facility] Start: 11-15-2022 End: 11-15-2022 Patient encounter procedure GAVIOTA VEGA [facility] Start: 10-05-2022 End: 10-05-2022 ambulatory MARIANO DIAB . Facility:[facility] Start: 09-21-2022 End: 09-21-2022 ambulatory SAYDA BLAS Facility:[facility] Start: 09-14-2022 ambulatory RAFAEL GONGORA Mounika y:[facility]1 Start: 08-24-2022 End: [address] CHAPARRO MORTENSEN . Facility:[facility] Start: 08-21-2022 End: 08-22-2022 ambulatory HATTIE BRODERICK Facility:[facility] Start: 07-27-2022 End: 07-28-2022 ambulatory CECILIA TORRES . Facility:[facility] Start: 07-18-2022 End: 07-19-2022 ambulatory CECILIA TORRES . Facility:[facility] Start: 07-18-2022 End: 07-19-2022 ambulatory HATTIE BRODERICK Facility:[facility] Start: 07-06-2022 End: 07-06-2022 ambulatory TRANSPORT MANAGER MCKAYLA BLAS Facility:[facility] Start: 05-11-2022 End: 05-12-2022 ambulatory IGL VALENZUELA . Facility:[facility] Start: 04-25-2022 End: 04-25-[address] CHAPARRO MORTENSEN . Facility:[facility] Start: 04-20-2022 End: 04-21-2022 ambulatory GIL VALENZUELA . Facility:[facility] Start: 03-08-2022 End: 03-08-2022 ambulatory Stephanie Tico Other Shortlist Other Start: 03-08-2022 Office outpatient vi sit 15 minutes Stephanie Tico [facility] Start: 03-03-2022 End: 03-04-2022 ambulatory TRANSPORT MANAGER MCKAYLA BLAS Facility:[facility] Start: 02-20-2022 End: 02-20-2022 ambulatory Stephanie Tico Other Shortlist Other Start: 02-20-2022 Office outpatient ne w 45 minutes Stephanie Tico [facility] Start: 02-06-2022 ambulatory GAVIOTA VEGA Facility : [facility] Start: 02-06-2022 End: 02-07-2022 ambulatory MCKAYLA BLAS Facility:[facility] Start: 02-06-2022 End: 02-06-2022 Patient encounter procedure Elbert VARGAS [facility] [place] Start: 01-19-2022 End: 01-20-2022 ambulatory GIL VALENZUELA . Facility: Start: 01-05-2022 ambulatory GAVIOTA VEGA Facility :[facility] [place] Start: 12-24-2021 End: 12-24-2021 ambulatory OLE RAMIREZ Facility: Start: 08-26-2020 End: 09-10-2020 Patient encounter procedure MARY TAVERAS Facility:[facility] Start: 10-30-2019 End: 10-30-2019 Emergency department patient visit [facility] Start: 10-30-2019 End: 10-30-2019 Emergency department patient visit [facility] Emergency Department Start: 11-02-2016 Preoperative state Stephanie Tico Other Shortlist Other Procedures Date Procedure Procedure Detail Performing Clinician Start: 11-22-2022 Mammography Mckayla clifford NP Work Phone: Start: 10-08-2015 Microscopic observat ion [Identifier] in Cervix by Cyto stain Mckayla Blas [employer] Work Phone: H/O: hysterectomy Elbert LARA Laparoscopic cholecystectomy Elbert VARGAS Operative procedure on foot Elbert VARGAS Plan of Treatment Date Care Activity Detail Author Start: 08-03-2025 Screening for malign ant neoplasm of colon [facility] Start: 11-24-2023 Urine screening for protein Diabetes: Urine Protein Screening [facility] Start: 11-23-2023 Screening for malign ant neoplasm of breast Mammogram [facility] Start: 10-15-2023 End: 10-15-2023 Patient encounter procedure 10/15/2023 4:30 PM EDT Office Visit [facility] [address] [place] [address] Mckayla Blas, SILVANO [address] [place] [id number] [facility] Start: 08-09-2023 Hemoglobin A1c measurement Diabetes: Hemoglobin A1C [facility] Start: 05-27-2021 Glaucoma screening Diabetes: R etinopathy Screening [facility] Start: 03-09-2020 Influenza vaccination Flu vacc ine (Season Ended) [place] Start: 10-07-2018 Screening for malign ant neoplasm of cervix [facility] Start: 2010 Lipid panel Lipid screen [place], [place] Start: 2000 Screening for malign ant neoplasm of cervix HPV/Cotest [facility] Start: 1991 Screening for malign ant neoplasm of cervix Cervical cancer screen [place] Start: 1989 DTaP/Tdap/Td vaccine (1 - Tdap) DTaP/Tdap/Td vaccine (1 - Tdap) [place] Start: 1985 HIV screening HIV screen [place], [place] Start: 1970 Medicare Annual Well ness (AWV) Medicare Annual Wellness (AWV) [facility] Start: 1970 Screening for malign ant neoplasm of colon [facility] Immunizations Immunization Date Immunization Notes Care Provider Judie lucas 05-18-2023 influenza, injectabl e, quadrivalent, contains preservative Mckayla Wan [employer] Work Phone: [facility] 07-19-2021 SARS-CoV-2 (COVID-19 ) mRNA BNT-162b2 vax GAVIOTA ZACARIAS [facility] 10-28-2020 SARS-CoV-2 (COVID-19 ) mRNA BNT-162b2 vax GAVIOTA ZACARIAS [facility] 10-08-2020 SARS-CoV-2 (COVID-19 ) mRNA BNT-268b2 vax fruux [facility] Payers Date Payer Category Payer Medicare [id number] 2023 Private Health Insurance [id number] 2018 Medicaid MEDICAID [facility] [id number] 2018-Present [phone] [address] [place] [address] Medicaid [id number] 2017 Medicare [employer] E MEDICARE UHC DUAL COMPLETE [id number] 2017-Present [address] [place] [address] [id number]. [id number] 1970 Unknown [id number] 2.16.840.1.626812.3.579.2. 647 1970 Unknown [id number] 2.16.840.1.107380.3.579.2. 727 1970 Unknown [id number] 2.16.840.1.671912.3.579.2. 727 1970 Unknown [id number] 2.16.840.1.239664.3.579.2. 727 1970 Unknown [id number] 2.16.840.1.329867.3.579.2. 727 1970 Unknown [id number] 2.16.840.1.978685.3.579.2. 593 1970 Unknown [id number] 2.16.840.1.304159.3.579.2. 593 1970 Unknown [id number] 2.16.840.1.233695.3.579.2. 593 1970 Unknown [id number] 2.16.840.1.836312.3.579.2. 593 1970 Unknown [id number] 2.16.840.1.814757.3.579.2. 593 1970 Unknown [id number] 2.16.840.1.484537.3.579.2. 593 1970 Unknown [id number] 2.16.840.1.530747.3.579.2. 593 1970 Unknown [id number] 2.16.840.1.936791.3.579.2. 593 1970 Unknown [id number] 2.16.840.1.076338.3.579.2. 593 1970 Unknown [id number] 2.16.840.1.835816.3.579.2. 593 1970 Unknown [id number] 2.16.840.1.900962.3.579.2. 593 1970 Unknown [id number] 2.16.840.1.344513.3.579.2. 593 1970 Unknown [id number] 2.16.840.1.208830.3.579.2. 593 1970 Unknown [id number] 2.16.840.1.342187.3.579.2. 593 1970 Unknown [id number] 2.16.840.1.606630.3.579.2. 593 1970 Unknown [id number] 2.16.840.1.313180.3.579.2. 593 1970 Unknown [id number] 2.16840.1.295626.3.579.2. 593 1970 Unknown [id number] 2.16840.1.485579.3.579.2. 593 1970 Unknown [id number] 2.16840.1.833943.3.579.2. 593 1970 Unknown [id number] 2.840.1.831775.3.579.2. 593 1970 Unknown [id number] .840.1.393791.3.579.2. 593 1970 Unknown [id number] .840.1.605356.3.579.2. 593 1970 Unknown [id number] 2.16840.1.356350.3.579.2. 1259 1970 Unknown [id number] 2.16840.1.147876.3.579.2. 1259 1970 Unknown [id number] .840.1.693817.3.579.2. 1259 1970 Unknown [id number] 2.840.1.901568.3.579.2. 1259 1959 Medicaid [id number] 1959 Private Health Insurance [id number] 1959 Unknown [id number] 2.840.1.072354.19 Social History Date Type Detail Facility Start: 02-17-2014 End: 07-10-2023 Tobacco smoking status RIIS Current every day smoker [place] Start: 02-17-1994 History of tobacco use Cigarette Smo ker [place] Start: 02-17-2014 End: 07-10-2023 Cigarettes smoked current (pack per day) - Reported [place] Start: 02-17-2014 Alcohol intake Current drinke r of alcohol (finding) [place] Start: 02-17-2014 Alcohol Comment [place] Start: 1970 Sex Assigned At Not on file [place] Exposure to SARS-CoV -2 (event) Unable to assess [place] Start: 02-06-2022 Tobacco smoking status Smoker (findi ng) [facility] Start: 07-10-2023 Sex [facility]igned At [facility] Start: 11-15-2022 Tobacco smoking status Heavy t obacco smoker (finding) [facility] Start: 07-10-2023 Tobacco use and exposure Smoke less tobacco non-user [facility] Start: 07-10-2023 Alcohol intake Lifetime non-d adrien (finding) [facility] Within the last year , have you been afraid of your partner or ex-partner? No [facility] Do you belong to any clubs or organizations such as islam groups, unions, fraternal or athletic groups, or [...] (one) time each day. Use as instructed [id number] Functional Status Date Assessment Result Facility 11-15-2022 Functional Status N/A [facility] 02-06-2022 Functional Status N/A [facility] Clinical Notes 01-19-2022 to 11-14-2023 Note Date & Type Note Facility 11-14-2023 Note [facility] - [facility] Subjective Mitzi Macias is a 53 y.o. year old female being seen as new patient to establish care. Ref from Mckayla Blas CNP for pulmonary hypertension. She had echo in Aug 2023 while inpatient at [facility] for pneumonia and COPD exacerbation. Denies chest pain, palpitations, and lightheadedness/syncope. Says she only gets SOB when she has URI. She will be seeing Dr. Yañez as new patient soon. Patient Active Problem List Diagnosis Abdominal pannus Adrenal mass 1 cm to 4 cm in diameter (CMS/HCC) Albuminuria RAGHU positive Anxiety and depression Arthritis Asthma Bilateral lower extremity edema BMI 50.0-59.9, adult (CMS/HCC) Candidiasis of breast Cardiomegaly Cervical cancer (CMS/HCC) Chronic pain of both knees Closed fracture of upper end of humerus Acute respiratory distress syndrome (CMS/HCC) Decreased functional mobility Diabetic neuropathy (CMS/HCC) Easy bruising GERD (gastroesophageal reflux disease) Gout Headache Hyperlipidemia Hypertension Insomnia Kidney stone Left flank pain Mixed incontinence Class 3 severe obesity with serious comorbidity and body mass index (BMI) of 50.0 to 59.9 in adult (CMS/HCC) Non-seasonal allergic rhinitis Obstructive sleep apnea Other chronic pain PAD (peripheral artery disease) (CMS/HCC) Pneumonia Encounter for screening mammogram for malignant neoplasm of breast Pulmonary hypertension (CMS/HCC) Radiculopathy, lumbar region Current smoker Type 2 diabetes mellitus with complication, with long-term current use of insulin (CMS/HCC) Unilateral primary osteoarthritis, right hip Vaginal yeast infection Venous insufficiency Family History Problem Relation Name Age of Onset Heart attack Paternal Grandmother Social History Tobacco Use Smoking status: Every Day Packs/day: .5 Types: Cigarettes Smokeless tobacco: Never Substance Use Topics Alcohol use: Not Currently HPI She is seen as a new patient referred from her PCPs office for hypertension and possible pulmonary hypertension. She is a 53-year-old woman with prior history of diabetes, longstanding heavy smoking, hypertension and dyslipidemia. In addition she seems to have been maintained diuretic therapy for lower extremity edema. She has likely COPD and is going to be following with pulmonary. She was admitted in early 2023 to the [facility] with hypoxemia and treated as COPD exacerbation. She also has morbid obesity with a BMI of 55. Today she reports that she has shortness of breath on exertion. She typically does not exert herself too much. She is currently in a wheelchair. She denies chest pain. She has mild bilateral lower extremity edema. She takes furosemide 40 mg daily and an extra 20 mg on an as-needed basis. In addition she is maintained on aspirin, statin therapy, Farxiga, as well as lisinopril. Her echocardiogram in August 2023 showed significantly increased left ventricular wall thickness with a preserved left ventricular systolic function. There was no apparent valvular dysfunction. Right-sided pressures could not be assessed. A echocardiogram in January 2023 showed similar findings. Review of Systems Cardiovascular: Positive for dyspnea on exertion (only when she has URI) and leg swelling (resolves by morning). Respiratory: Positive for cough and wheezing. Musculoskeletal: Positive for arthritis, back pain, joint pain, muscle weakness and myalgias. Neurological: Positive for numbness. Objective Visit Vitals BP 142/80 (BP Location: Left wrist, Patient Position: Sitting) Pulse 69 Ht 1.702 m (5' 7 ) Wt (!) 161 kg (354 lb) SpO2 94% BMI 55.44 kg/m??? Smoking Status Every Day BSA 2.76 m??? Physical Exam Constitutional: Appearance: She is well-developed. She is obese. She is not ill-appearing. HENT: Head: Normocephalic and atraumatic. Nose: Nose normal. Eyes: General: No scleral icterus. Pupils: Pupils are equal, round, and reactive to light. Neck: Thyroid: No thyromegaly. Vascular: No JVD. Cardiovascular: Rate and Rhythm: Normal rate and regular rhythm. Pulses: Radial pulses are 2+ on the right side and 2+ on the left side. Heart sounds: Normal heart sounds. No murmur heard. No friction rub. No gallop. Pulmonary: Effort: Pulmonary effort is normal. No respiratory distress. Breath sounds: Decreased air movement present. Examination of the right-lower field reveals wheezing. Examination of the left-lower field reveals wheezing. Wheezing present. No rales. Chest: Chest wall: No tenderness. Abdominal: General: Bowel sounds are normal. There is no distension. Palpations: Abdomen is soft. Tenderness: There is no abdominal tenderness. Musculoskeletal: General: No swelling. Cervical back: Neck supple. Right lower le+ Pitting Edema present. Left lower le+ Pitting Edema present. Comments: In wheelchair Skin: Gene (more content not included)... [facility] 11-15-2022 Hospital Discharg e instructions Patient Education [...] include: ?8 oz (237 mL) of milk, hfnmcot-nkxhmsfkiali-hvuiq milk, and calcium-fortifiedfruit juice. Calcium-fortified means that [...] ?Spinach (cooked), rhubarb, beets, sweet potatoes, and Afghan chard. ?Peanuts. ?Potato chips, slovenian fries, and baked potatoes with skin on. ?Nuts and nut products. ?Chocolate. If you regularly take a diuretic medicine, make sure to eat at least 1 or 2 servings of fruits or vegetables that are high in potassium each day. These include: ?Avocado. ?Banana. ?[place], prune, carrot, or tomato juice. ?Baked potato. [...] magnesium, fish oil, or vitamin B6. Take pggw-gre-ewpcoxu and prescription medicines only as told by [...] Casseroles. Pizza. Lasagna. Frozen meals. Potato chips. Colombian fries. The items listed above may not [...] provider. Document Revised: 03/06/2022 Document Reviewed: 03/06/2022 [employer] Patient Education 2022 [employer] P[employer]. Follow Up Care 02/06/2022 11:44:09 With:GAVIOTA VEGA PA-C, URL Address: [address] [place] [place] [address] When: Unknown [facility] 08-24-2022 Note CONSULTATION CONSULTATION DATE: 08/24/2022 [...] We maintain her on pain medication with [place] 5/325 t.i.d., diclofenac 75 mg b.i.d. Her [...] her at this point. A refill for [place] 5/325 t.i.d. and diclofenac 75 mg b.i.d. will be sent to the pharmacy. Vitamin compliance and nutrition were discussed and enforced. I did highly encourage her to use exercise bands to increase the strength in her lower extremities. We will see her in three months' time, unless otherwise indicated, and patient agrees. [facility] 05-11-2022 Note CONSULTATION CONSULTATION DATE: [...] 150. Medications include Lyrica 300 mg b.i.d., [place] 5/325 t.i.d., diclofenac 75 mg b.i.d. and [...] her medications today. We will maintain Lyrica, [place] and diclofenac at the set dose and frequency. We will follow-up in the clinic in three months' time. The patient is in agreement to this. Vitamin importance and nutrition were discussed. [facility] 04-20-2022 Note CONSULTATION CONSULTATION DATE: [...] medications include Tylenol, Lyrica 300 mg b.i.d., [place] 5/325 t.i.d., amitriptyline, diclofenac and duloxetine. Patient's [...] be followed up in the clinic. [facility] 03-08-2022 Evaluation note Encounter Date [...] to the DANIEL. Thrombocytopenia is unclear etiology. Shortlist Other 08-15-2022 Evaluation note* Encounter Date Diagnosis [...] follow with Dr. Souza and Dr. Vargas. Shortlist Other 08-01-2022 Hospital Discharge instructions Patient Education [...] fried and sweet foods. General instructions Take fahf-lne-akeylrn and prescription medicines only as told by [...] 04/21/2010 Document Revised: 10/16/2019 Document Reviewed: 07/11/2018 [employer] Patient Education 2020 [employer]QUA PURE. Follow Up Care 01/05/2022 12:02:03 With:REGLA PHIPPS, Elbert Joya, URL Address: [facility] [address] [place] [address] [phone] When:Within 6 Month(s) Comments:w/ repeat CT A/P [facility] 07-14-2022 NoteCONSULTATION PROCEDURE DATE: 01/19/2022 PRE [...] and Approved by: GIL VALENZUELA . 01/27/2022 14:15:00[place] [id number] NoteCONSULTATION CONSULTATION DATE: 01/19/2022 This is a [...] today. Medications include Lyrica 300 mg b.i.d., [place] 5/325 t.i.d., diclofenac 75 mg b.i.d. and [...] Approved by: GIL VALENZUELA . 01/27/2022 14:15:00[facility] [place] [facility] Future Appointments Appointment Date:08/14/2022 09:15:00 AM Scheduled Provider:Elbert VARGAS MD Location:[facility] Appointment Type:URO Office Visit [facility] evaluation + Plan note Future Appointments Appointment Date:04/22/2024 10:00:00 AM Scheduled Provider:GAVIOTA VEGA PA-C Location:[facility] Appointment Type:URO Office Visit [facility] evalcvqyjs note* Diagnosis Type 2 diabetes mellitus with unspecified complications (CMS/[facility]) Edema, unspecified Edema documented in this [...] History sepsis 2010 Hospitalization History SEE ABOVE Shortlist Other Hospital course Narrative No data available for this section [facility] progress note No data available for this section [facility] reason for referral (narrative) , Referral to Dr. Coréts Referred by: Elbert VARGAS MD [facility] Advance Directives No Advanced Directives Records FoundDocuments on File Type Date Recorded Patient Food Order Expediter Expl anation Advance Directives and Living Will Power of Wearing Apparel Shaker Summary Purpose Family History No Family History Records FoundNo Family History Records FoundNo Family History Records FoundNo Family History Records FoundNo Family History Records FoundNo Family History Records Found Additional Source Comments INFORMATION SOURCE (unrecogn ized section and content) DATE CREATED AUTHOR 10/30/2019 [facility] DATE CREATED AUTHOR AUTHOR'S ORGANIZ ATION 09/15/2020 [facility] DATE CREATED AUTHOR AUTHOR'S ORGANIZ ATION 11/16/2022 [facility] DATE CREATED AUTHOR AUTHOR'S ORGANIZ ATION 12/19/2022 [facility] [place] [facility] DATE CREATED AUTHOR AUTHOR'S ORGANIZ ATION 11/16/2023 [facility] DATE CREATED AUTHOR AUTHOR'S ORGANIZ ATION 11/17/2023 [facility] dical Specialists EPIC Care Team (unrecognized sect ion and content) Bone Char Puller Relationship Specialty Start Date End Date Ty Amin MD PCP - General Family Medicine 01/05/23 Bone Char Puller Relationship Specialty Start Date End Date Ty [...] BE BASED ON THE PRIMARY CLINICAL RECORDS. [employer] provides no warranty or guarantee of the accuracy or completeness of information in this document.
[2023-11-27 09:50] VITALS: BP 128/73; PULSE 86; TEMP 36.2; O2SAT 92
[2023-11-27 09:52] LABS: Glucometer 128 mg/dL (74-106)
[2023-11-27 10:31] VITALS: BP 159/79; BP 163/78; PULSE 82; PULSE 84; O2SAT 92; O2SAT 94
[2023-11-27] MEDS: LIDOCAINE HCL 2% 400 MG/20 ML MDV 6 ML INJ (10:46)
[2023-11-27] MEDS: BUPIVACAINE HCL 0.25% PF 25 MG/10 ML VIAL 4 ML INJ (10:46)
[2023-11-27] MEDS: METHYLPREDNISOLONE ACETATE 40 MG/ML VIAL INJ (10:46)
--- NOTE | 2023-11-27 11:08 | W.PM.PROCNOT ---
Date of procedure: 11/27/23 Pre-op diagnosis: Lumbar spondylosis Post-op diagnosis: same as pre-op Procedure: Left Lumbar 4/5, 5/sacral 1 Radiofrequency ablation Under fluoroscopic guidance Rhizotomy was created using radio frequency ablation at 80?C for 90 seconds 1 to 2 lesions created at each site. Post lesioning injection of 2 mL each of 0.25% Marcaine and 2% lidocaine with Depo-Medrol 40mg. 0.5 to 1 mL injected at each site IV in place no Anesthesia local 2% lidocaine for Anesthesia Other: local Timeout process compliant After informed consent obtained.Patient brought to the procedure room placed in the prone position skin overlying the area was prepped and draped in a sterile fashion using betadine. 25 gauge needle was used to create a skin wheal over each of the targeted areas utilizing 2% lidocaine. A rhizotomy needle with a 10 mm active tip was inserted over each of the anesthetized areas and directed towards each of the medial branches accomplished under fluoroscopic guidance. after encountering the same we had positive sensory stimulation, negative motor stimulation was noted. lesions were then created. Post lesioning, steroid solution was injected needles removed. Patient was transferred to recovery room in stable condition to be discharged home after meeting criteria. Anesthesia: Local Surgeon: Temo Sharp Condition: stable
== END 2023-11-27 10:50 | disposition home or self-care (01) ==
LOC: SURGOUT 09:26
PROVIDERS: PCP Nurse Practitioner; Visit Provider Anesthesiology Pain Medicine
DX: M47.816 Spondylosis without myelopathy or radiculopathy, lumbar region (principal); Z79.4 Long term (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
CPT/HCPCS: 36415; 64635; 64636; 82948; J1010

== ENCOUNTER 2023-12-13 10:12 | Outpatient (OUT) | payer MEDICARE, OTHER, SELFPAY ==
--- NOTE | 2023-12-13 10:16 | MM_ITS ---
Patient Name: SINA NICHOLE MR#: [id number] : 1970 Exam Date: 12/13/2023 Ordering Doctor: SAYDA Blas CNP RADIOLOGY REPORT PROCEDURE: MM TOMOSYNTHESIS SCREENING BI COMPARISON: MG MAMM SCREEN 3D ALEX CAD, 11/22/2022. MG MAMM SCREEN 3D ALEX CAD, 10/25/2021. MG MAMM SCREEN ALEX W CAD, 08/06/2020. MG MAMM ALEX SCRN W CAD DIG, 11/06/2014. INDICATIONS: Screening Calculator Name NCI Breast Cancer Risk Assessment Tool 5 Year Breast Cancer Risk 0.70% Lifetime Breast Cancer Risk 5.70% Personal Breast Cancer No Personal Ovarian Cancer No Treatments None Family Cancers Grandmother-paternal with ovarian cancer at age ~80; Grandfather-paternal with unknown cancer at age ~75. LOCATION: [facility] BREAST COMPOSITION: The breasts are almost entirely fatty. FINDINGS: DIAGNOSTIC CATEGORY 2--BENIGN FINDING: RIGHT BREAST: No significant suspicious finding. Scattered benign-appearing calcifications are present. No significant change has occurred. LEFT BREAST: No significant suspicious finding. Scattered benign-appearing calcifications are present. No significant change has occurred. RECOMMENDATIONS: ROUTINE MAMMOGRAM AND CLINICAL EVALUATION IN 12 MONTHS. PLEASE NOTE: A NORMAL MAMMOGRAM DOES NOT EXCLUDE THE POSSIBILITY OF BREAST CANCER. A CLINICALLY SUSPICIOUS PALPABLE LUMP SHOULD BE BIOPSIED. Dictated by: Noel Ivan M.D. on 12/14/2023 at 11:18 Approved by: Noel Ivan M.D. on 12/14/2023 at 11:21
--- OUTSIDE RECORDS SUMMARY | 2023-12-13 10:19 | XMS_ITS | CCD ---
Author Organization [facility] Care Team Providers Care Manager Integrated Name Role Phone Rufino Desouza Primary Care Provider RUFINO DESOUZA Primary Care Unavailable SHENDGE, VITHAL Admitting Unavailable SHENDGE, VITHAL Attending Unavailable AICHHOLZ, MCKAYLA Primary Care Unavailable AICHHOLZ, MCKAYLA Referring Unavailable AICHJODIE, MCKAYLA J Primary Care Physician Tico, Stephanie Unavailable GAVIOTA VEGA Attending Unavailable GAVIOTA VEGA Attending Unavailable AICHJODIE, MCKAYLA J Referring Unavailable Elbert VARGAS Attending Unavailable OLE RAMIREZ Attending Unavailable OLE RAMIREZ Consulting Unavailable AICHHOLZ, BANQUET DIRECTOR MCKAYLA Primary Care Unavailable ASHLEY, OLE Admitting Unavailable ANTONY SHRESTHA Consulting Unavailable ALONDRA .UMBERTO Admitting Unavailable ALONDRA .UMBERTO Attending Unavailable AICHHOLZ, BANQUET DIRECTOR MCKAYLA Primary Care Unavailable AFSANEH Loera, DR BOLANOS Consulting Unavailable MARYANNE POWER Consulting Unavailable GLENN KERR Consulting Unavailable YOMAIRA KERR Consulting Unavailable HATTIE GOFF Consulting Unavailable ALONDRA .UMBERTO Consulting Unavailable TICO, STEPHANIE Attending Unavailable TICO, STEPHANIE Consulting Unavailable AICHHOLZ, BANQUET DIRECTOR MCKAYLA Primary Care Unavailable TICO, STEPHANIE Admitting Unavailable REGLA Loera, DR DUMONT Admitting Unavailable AICHHOLZ, BANQUET DIRECTOR MCKAYLA Primary Care Unavailable REGLA ., DR DUMONT Attending Unavailable REGLA ., DR DUMONT Consulting Unavailable COLLIN HUERTAS Consulting Unavailable CECILIA KAUFMAN Admitting Unavailable CECILIA KAUFMAN Attending Unavailable AICHHOLZ, BANQUET DIRECTOR MCKAYLA Primary Care Unavailable RAFAEL GONGORA Attending Unavailable RAFAEL GONGORA Admitting Unavailable AICHHOLZ, BANQUET DIRECTOR MCKAYLA Primary Care Unavailable AICHHOLZ, BANQUET DIRECTOR MCKAYLA Admitting Unavailable AICHHOLZ, BANQUET DIRECTOR MCKAYLA Primary Care Unavailable AICHHOLZ, BANQUET DIRECTOR MCKAYLA Attending Unavailable AICHHOLZ, BANQUET DIRECTOR MCKAYLA Consulting Unavailable LAKSHMIPATHY ., NARENDRANATH Attending Anette vailable LAKSHMIPATHY ., NARENDRANATH Consulting Anette vailable LAKSHMIPATHY ., NARENDRANATH Admitting Anette vailable AICHHOLZ, BANQUET DIRECTOR MCKAYLA Primary Care Unavailable VALENZUELA ., GIL Consulting Unavailable MORTENSEN ., DR CHAPARRO Aguillon Attending Unavailable MORTENSEN ., DR CHAPARRO Aguillon Admitting Unavailable AICHHOLZ, BANQUET DIRECTOR MCKAYLA Primary Care Unavailable VALEZNUELA ., GIL Consulting Unavailable MORTENSEN ., DR CHAPARRO Aguillon Admitting Unavailable AICHHOLZ, BANQUET DIRECTOR MCKAYLA Primary Care Unavailable MORTENSEN ., DR CHAPARRO Aguillon Attending Unavailable HALKER ., SUBHASH Consulting Unavailable LAKSHMIPATHY ., NARENDRANATH Admitting Anette vailable LAKSHMIPATHY ., NARENDRANATH Attending Anette vailable AICHHOLZ, BANQUET DIRECTOR MCKAYLA Primary Care Unavailable MORTENSEN ., DR CHAPARRO Aguillon Attending Unavailable MORTENSEN ., DR CHAPARRO Aguillon Admitting Unavailable VALENZUELA ., GIL Consulting Unavailable AICHHOLZ, BANQUET DIRECTOR MCKAYLA Primary Care Unavailable VALENZUELA ., GIL Consulting Unavailable MORTENSEN ., DR CHAPARRO Aguillon Attending Unavailable MORTENSEN ., DR CHAPARRO Aguillon Admitting Unavailable AICHHOLZ, BANQUET DIRECTOR MCKAYLA Primary Care Unavailable HATTIE BRODERICK Attending Unavailable HATTIE BRODERICK Admitting Unavailable AICHHOLZ, BANQUET DIRECTOR MCKAYLA Primary Care Unavailable AICHHOLZ, BANQUET DIRECTOR MCKAYLA Admitting Unavailable AICHHOLZ, BANQUET DIRECTOR MCKAYLA Consulting Unavailable AICHHOLZ, BANQUET DIRECTOR MCKAYLA Primary Care Unavailable AICHHOLZ, BANQUET DIRECTOR MCKAYLA Attending Unavailable AICHHOLZ, BANQUET DIRECTOR MCKAYLA Primary Care Unavailable MISC, DR LESLIE Admitting Unavailable MISC, DR LESLIE Attending Unavailable MISC, DOCTOR Consulting Unavailable DIAB ., MARIANO Admitting Unavailable DIAB ., MARIANO Attending Unavailable DIAB ., MARIANO Consulting Unavailable AICHHOLZ, BANQUET DIRECTOR MCKAYLA Primary Care Unavailable RICCO PICKARD Consulting Unavailable AICHHOLZ, BANQUET DIRECTOR MCKAYLA Admitting Unavailable AICHHOLZ, BANQUET DIRECTOR MCKAYLA Primary Care Unavailable AICHHOLZ, BANQUET DIRECTOR MCKAYLA Attending Unavailable AICHHOLZ, BANQUET DIRECTOR MCKAYLA Consulting Unavailable DR PATRICIA IVAN Consulting Unavailable CECILIA KAUFMAN Attending Unavailable CECILIA KAUFMAN Admitting Unavailable DR PATRICIA IVAN Consulting Unavailable AICHHOLZ, BANQUET DIRECTOR MCKAYLA Primary Care Unavailable CECILIA KAUFMAN Consulting Unavailable FESTUS ., DR CHAPARRO Aguillon Attending Unavailable FESTUS ., DR CHAPARRO Aguillon Consulting Unavailable FESTUS ., DR CHAPARRO Aguillon Admitting Unavailable AICHHOLZ, BANQUET DIRECTOR MCKAYLA Primary Care Unavailable HATTIE BRODERICK Attending Unavailable HATTIE BRODERICK Consulting Unavailable HATTIE BRODERICK Admitting Unavailable AICHHOLZ, BANQUET DIRECTOR MCKAYLA Primary Care Unavailable HATTIE BAUTISTA Consulting Unavailable AICHHOLZ, BANQUET DIRECTOR MCKAYLA Admitting Unavailable AICHHOLZ, BANQUET DIRECTOR MCKAYLA Attending Unavailable AICHHOLZ, BANQUET DIRECTOR MCKAYLA Consulting Unavailable AICHHOLZ, BANQUET DIRECTOR MCKAYLA Primary Care Unavailable Ty Amin MD Primary Care Provider BHARAT AGUILAR Attending Unavailable AICHHOLZ, MCKAYLA Attending Unavailable AICHHOLZ, MCKAYLA Attending Unavailable AICHHOLZ, MCKAYLA Attending Unavailable AICHHOLZ, MCKAYLA Attending Unavailable Allergies Allergy Classification Reported Allergen(s) Allergy Type Date of Onset Reaction(s) Facility (1 source) No Known Medication Allergies; 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: [No Known Medication Allergies] Propensity to adverse reactions (disorder) [facility] Repository Medications Current Medications Medication Drug Class(es) Dates Sig (Normalized) Sig (Original) acetaminophen 325 mg / HYDROcodone bitartrate 5 mg oral tablet (6 sources) 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 Unclassified (1 source) COCOA MILLING MACHINE OPERATOR INJECT NONINSULN ANTIDIAB; 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: [COCOA MILLING MACHINE OPERATOR INJECT NONINSULN ANTIDIAB] Onset: 12-05-2022 Unclassified (3 [...] Range Facility Office Visiton 11-14-2023 Follow-up visit [id number] Mitzi Macias 1970 F Date Provider Department Center 11/14/2023 BHARAT NICOLE [facility] Family History Problem Relation Age of Onset Heart attack Paternal Grandmother Family Status - Relation Status Age at Paternal Grandmother Level of Service:38414 CT OFFICE/OUTPATIENT NEW LOW MDM 30 MINUTES Normal [facility] CBC AUTO DIFFon 12-06-2022 BASO # 0.0 103/ul Normal 0.0-0.1 [facility] Comment on above: Performed By: #### C BC #### [facility] [address] [place] [address] Dr. Ashlie Hills Basophils/100 WBC (Bld) 0.1 % Critically low 0.2-2.0 [facility] Comment on above: Performed By: #### C BC #### [facility] [address] [place] [address] Dr. Ashlie Hills EO # 0.0 103/ul Normal 0.0-0.7 [facility] Comment on above: Performed By: #### C BC #### [facility] [address] [place] [address] Dr. Ashlie Hills Eosinophils/100 WBC (Bld) 0.0 % Critically low 0.9-7.0 [facility] Comment on above: Performed By: #### C BC #### [facility] [address] [place] [address] Dr. Ashlie Hills Erythrocyte distribution width (RBC) [Ratio] 14.9 % Normal 11.0-15.0 [facility] Comment on above: Performed By: #### C BC #### [facility] [address] [place] [address] Dr. Ashlie Hills Hematocrit (Bld) [Volume fraction] 46.2 % Normal 36.0-48.0 [facility] Comment on above: Performed By: #### C BC #### [facility] [address] [place] [address] Dr. Ashlie Hills Hemoglobin (Bld) [Mass/Vol] 14.7 g/dL Normal 12.0-16.0 [facility] Comment on above: Performed By: #### C BC #### [facility] [address] [place] [address] Dr. Ashlie Hills IG # 0.06 10e3/ul Critically high 0.00-0.[address] [facility] Comment on above: Performed By: #### C BC #### [facility] [address] [place] [address] Dr. Ashlie Hills IG % 0.4 % Normal 0.0-0.5 [facility] Comment on above: Performed By: #### C BC #### [facility] [address] [place] [address] Dr. Ashlie Hills LYMPH # 1.3 103/ul Normal 1.2-3.8 [facility] Comment on above: Performed By: #### C BC #### [facility] [address] [place] [address] Dr. Ashlie Hills Lymphocytes/100 WBC (Bld) 9.4 % Critically low 20.5-60.0 [facility] Comment on above: Performed By: #### C BC #### [facility] [address] [place] [address] Dr. Ashlie Hlils MANUAL DIFF REQ NO Normal [facility] Comment on above: Performed By: #### C BC #### [facility] [address] [place] [address] Dr. Ashlie Hills MCH (RBC) [Entitic mass] 28.4 pg Normal 26.7-34.0 [facility] Comment on above: Performed By: #### C BC #### [facility] [address] [place] [address] Dr. Ashlie Hills MCHC (RBC) [Mass/Vol] 31.8 g/dL Normal 29.9-35.2 [facility] Comment on above: Performed By: #### C BC #### [facility] [address] [place] [address] Dr. Ashlie Hills MCV (RBC) [Entitic vol] 89.4 fL Normal 81.0-99.0 [facility] Comment on above: Performed By: #### C BC #### [facility] [address] [place] [address] Dr. Ashlie Hills MONO # 0.5 103/ul Normal 0.3-0.8 [facility] Comment on above: Performed By: #### C BC #### [facility] [address] [place] [address] Dr. Ashlie Hills Monocytes/100 WBC (Bld) 3.4 % Normal 1.7-12.0 [facility] Comment on above: Performed By: #### C BC #### [facility] [address] [place] [address] Dr. Ashlie Hills NEUT # 11.8 103/ul Critically high 1.4-6.5 [facility] Comment on above: Performed By: #### C BC #### [facility] [address] [place] [address] Dr. Ashlie Hills Neutrophils/100 WBC (Bld) 86.7 % Critically high 43.0-75.0 [facility] Comment on above: Performed By: #### C BC #### [facility] [address] [place] [address] Dr. Ashlie Hills Platelet mean volume (Bld) [Entitic vol] 12.6 fL Normal 9.5-13.5 [facility] Comment on above: Performed By: #### C BC #### [facility] [address] [place] [address] Dr. Ashlie Hills PLT 133 103/ul Critically low 150-450 [facility] Comment on above: Performed By: #### C BC #### [facility] [address] [place] [address] Dr. Ashlie Hills RBC 5.17 106/ul Normal 4.20-5.40 [facility] Comment on above: Performed By: #### C BC #### [facility] [address] [place] [address] Dr. Ashlie Hills WBC 13.6 103/ul Critically high 4.0-11.0 [facility] Comment on above: Performed By: #### C BC #### [facility] [address] [place] [address] Dr. Ashlie Hills MAGNESIUMon 12-06-2022 Magnesium [Mass/Vol] 2.2 mg/dL Normal 1.8-2.4 [facility] Comment on above: Performed By: #### I NFLUAB #### [facility] [address] [place] [address] Dr. Ashlie Hills POINT OF CARE GLUCOSEon 11-08 Glucose [Mass/Vol] 340 mg/dL Critically high 74-106 [facility] Comment on above: Performed By: #### P OCGLUC #### [facility] [address] [place] [address] Dr. Ashlie Hills Glucose [Mass/Vol] 276 mg/dL Critically high 74-106 [facility] Comment on above: Performed By: #### C BC #### [facility] [address] [place] [address] Dr. Ashlie Hills Glucose [Mass/Vol] 333 mg/dL Critically high 74-106 [facility] Comment on above: Performed By: #### C BC #### [facility] [address] [place] [address] Dr. Ashlie Hills PROF CHEM 8 (BAS METB)on Anion gap [Moles/Vol] 10.9 mmol/L Normal [facility] Comment on above: Performed By: #### I NFLUAB #### [facility] [address] [place] [address] Dr. Ashlie Hills Calcium [Mass/Vol] 9.3 mg/dL Normal 8.5-10.1 [facility] Comment on above: Performed By: #### I NFLUAB #### [facility] [address] [place] [address] Dr. Ashlie Hills Chloride [Moles/Vol] 103 mmol/L Normal 98-107 [facility] Comment on above: Performed By: #### I NFLUAB #### [facility] [address] [place] [address] Dr. Ashlie Hills CO2 [Moles/Vol] 31.2 mmol/L Normal 21.0-32.0 [facility] Comment on above: Performed By: #### I NFLUAB #### [facility] [address] [place] [address] Dr. Ashlie Hills Creatinine [Mass/Vol] 0.96 mg/dL Normal 0.55-1.02 [facility] Comment on above: Performed By: #### I NFLUAB #### [facility] [address] [place] [address] Dr. Ashlie Hills EGFR-AF BAHRAINI >60 Normal >=60 [facility] Comment on above: Performed By: #### I NFLUAB #### [facility] [address] [place] [address] Dr. Ashlie Hills EGFR-NON AF BAHRAINI >60 Normal >=60 [facility] Comment on above: Performed By: #### I NFLUAB #### [facility] [address] [place] [address] Dr. Ashlie Hills Glucose [Mass/Vol] 288 mg/dL Critically high 74-106 [facility] Comment on above: Performed By: #### I NFLUAB #### [facility] [address] [place] [address] Dr. Ashlie Hills Potassium [Moles/Vol] 5.1 mmol/L Normal 3.5-5.1 [facility] Comment on above: Performed By: #### I NFLUAB #### [facility] [address] [place] [address] Dr. Ashlie Hills Sodium [Moles/Vol] 140 mmol/L Normal 136-145 [facility] Comment on above: Performed By: #### I NFLUAB #### [facility] [address] [place] [address] Dr. Ashlie Hills Urea nitrogen [Mass/Vol] 30.0 mg/dL Critically high 7.0-18.0 [facility] Comment on above: Performed By: #### I NFLUAB #### [facility] [address] [place] [address] Dr. Ashlie Hills Urea nitrogen/Creatinine [Mass ratio] 31.2 mg/mg Normal [facility] Comment on above: Performed By: #### I NFLUAB #### [facility] [address] [place] [address] Dr. Ashlie Hills CBC AUTO DIFFon 12-05-2022 BASO # 0.0 103/ul Normal 0.0-0.1 [facility] Comment on above: Performed By: #### C BC #### [facility] [address] [place] [address] Dr. Ashlie Hills Basophils/100 WBC (Bld) 0.4 % Normal 0.2-2.0 [facility] Comment on above: Performed By: #### C BC #### [facility] [address] [place] [address] Dr. Ashlie Hills EO # 0.0 103/ul Normal 0.0-0.7 [facility] Comment on above: Performed By: #### C BC #### [facility] [address] [place] [address] Dr. Ashlie Hills Eosinophils/100 WBC (Bld) 0.0 % Critically low 0.9-7.0 [facility] Comment on above: Performed By: #### C BC #### [facility] [address] [place] [address] Dr. Ashlie Hills Erythrocyte distribution width (RBC) [Ratio] 14.8 % Normal 11.0-15.0 [facility] Comment on above: Performed By: #### C BC #### [facility] [address] [place] [address] Dr. Ashlie Hills Hematocrit (Bld) [Volume fraction] 49.9 % Critically high 36.0-48.0 [facility] Comment on above: Performed By: #### C BC #### [facility] [address] [place] [address] Dr. Ashlie Hills Hemoglobin (Bld) [Mass/Vol] 15.7 g/dL Normal 12.0-16.0 [facility] Comment on above: Performed By: #### C BC #### [facility] [address] [place] [address] Dr. Ashlie Hills IG # 0.04 10e3/ul Critically high 0.00-0.[address] [facility] Comment on above: Performed By: #### C BC #### [facility] [address] [place] [address] Dr. Ashlie Hills IG % 0.5 % Normal 0.0-0.5 [facility] Comment on above: Performed By: #### C BC #### [facility] [address] [place] [address] Dr. Ashlie Hills LYMPH # 1.1 103/ul Critically low 1.2-3.8 [facility] Comment on above: Performed By: #### C BC #### [facility] [address] [place] [address] Dr. Ashlie Hills Lymphocytes/100 WBC (Bld) 12.7 % Critically low 20.5-60.0 [facility] Comment on above: Performed By: #### C BC #### [facility] [address] [place] [address] Dr. Ashlie Hills MANUAL DIFF REQ NO Normal [facility] Comment on above: Performed By: #### C BC #### [facility] [address] [place] [address] Dr. Ashlie Hills MCH (RBC) [Entitic mass] 28.1 pg Normal 26.7-34.0 [facility] Comment on above: Performed By: #### C BC #### [facility] [address] [address] [address] Ashlie Hills MCHC (RBC) [Mass/Vol] 31.5 g/dL Normal 29.9-35.2 [facility] Comment on above: Performed By: #### C BC #### [facility] [address] [address] [address] Ashlie Hills MCV (RBC) [Entitic vol] 89.3 fL Normal 81.0-99.0 [facility] Comment on above: Performed By: #### C BC #### [facility] [address] [place] [address] Dr. Ashlie Hills MONO # 0.1 103/ul Critically low 0.3-0.8 [facility] Comment on above: Performed By: #### C BC #### [facility] [address] [place] [address] Dr. Ashlie Hills Monocytes/100 WBC (Bld) 1.3 % Critically low 1.7-12.0 [facility] Comment on above: Performed By: #### C BC #### [facility] [address] [place] [address] Dr. Ashlie Hills NEUT # 7.2 103/ul Critically high 1.4-6.5 [facility] Comment on above: Performed By: #### C BC #### [facility] [address] [place] [address] Dr. Ashlie Hills Neutrophils/100 WBC (Bld) 85.1 % Critically high 43.0-75.0 [facility] Comment on above: Performed By: #### C BC #### [facility] [address] [place] [address] Dr. Ashlie Hills Platelet mean volume (Bld) [Entitic vol] 12.2 fL Normal 9.5-13.5 [facility] Comment on above: Performed By: #### C BC #### [facility] [address] [place], [place] [address] Dr. Ashlie Hills PLT 116 103/ul Critically low 150-450 [facility] Comment on above: Performed By: #### C BC #### [facility] [address] [address] [address] Ashlie Hills RBC 5.59 106/ul Critically high 4.20-5.40 [facility] Comment on above: Performed By: #### C BC #### [facility] [id number] Ashlie Hills WBC 8.5 103/ul Normal 4.0-11.0 [facility] Comment on above: Performed By: #### C BC #### [facility] [id number] Ashlie Hills CTA CHEST WO W [...] by: HATTIE GOFF Date: 2022-12-05 01:52 Normal [facility] MAGNESIUMon 12-05-2022 Magnesium [Mass/Vol] 2.1 mg/dL Normal 1.8-2.4 [facility] Comment on above: Performed By: #### P OCGLUC #### [facility] [address] [address] [address] Ashlie Hills POINT OF CARE GLUCOSEon 11-08 Glucose [Mass/Vol] 293 mg/dL Critically high -106 [facility] Comment on above: Performed By: #### P OCGLUC #### [facility] [address] [address] [address] Ashlie Hills Glucose [Mass/Vol] 269 mg/dL Critically high [facility] Comment on above: Performed By: #### P OCGLUC #### [facility] [address] [address] [address] Ashlie Hills Glucose [Mass/Vol] 223 mg/dL Critically high [facility] Comment on above: Performed By: #### C VDAGS #### [facility] [address] [address] [address] Ashlie Hills PROF CHEM 8 (BAS METB)on Anion gap [Moles/Vol] 11.6 mmol/L Normal [facility] Comment on above: Performed By: #### P OCGLUC #### [facility] [address] [address] [address] Ashlie Hills Calcium [Mass/Vol] 9.2 mg/dL Normal 8.5-10.1 [facility] Comment on above: Performed By: #### P OCGLUC #### [facility] [address] [address] [address] Ashlie Hills Chloride [Moles/Vol] 102 mmol/L Normal 98-107 [facility] Comment on above: Performed By: #### P OCGLUC #### [facility] [address] [address] [address] Ashlie Hills CO2 [Moles/Vol] 28.7 mmol/L Normal 21.0-32.0 [facility] Comment on above: Performed By: #### P OCGLUC #### [facility] [address] [address] [address] Ashlie Hills Creatinine [Mass/Vol] 1.04 mg/dL Critically high 0.55-1.02 [facility] Comment on above: Performed By: #### P OCGLUC #### [facility] [address] [address] [address] Ashlie Hills EGFR-AF BAHRAINI >60 Normal >=60 [facility] Comment on above: Performed By: #### P OCGLUC #### [facility] [address] [address] [address] Ashlie Hills EGFR-NON AF BAHRAINI 56 mL/min/1.73m2 Critically low >=60 [facility] Comment on above: Performed By: #### P OCGLUC #### [facility] [address] [address] [address] Ashlie Hills Glucose [Mass/Vol] 231 mg/dL Critically high 74-106 [facility] Comment on above: Performed By: #### P OCGLUC #### [facility] [address] [address] [address] Ashlie Hills Potassium [Moles/Vol] 4.3 mmol/L Normal 3.5-5.1 [facility] Comment on above: Performed By: #### P OCGLUC #### [facility] [address] [address] [address] Ashlie Hills Sodium [Moles/Vol] 138 mmol/L Normal 136-145 [facility] Comment on above: Performed By: #### P OCGLUC #### [facility] [address] [address] [address] Ashlie Hills Urea nitrogen [Mass/Vol] 17.0 mg/dL Normal 7.0-18.0 [facility] Comment on above: Performed By: #### P OCGLUC #### [facility] [address] [place] [address] Dr. Ashlie Hills Urea nitrogen/Creatinine [Mass ratio] 16.3 mg/mg Normal [facility] Comment on above: Performed By: #### P OCGLUC #### [facility] [address] [place] [address] Dr. Ashlie Hills RESPIRATORY PANEL PLUSon Adenovirus Not detected Normal NOT DETECTED [facility] Comment on above: Performed By: #### C VDAGS #### [facility] [address] [place] [address] Dr. Ashlie Hills B. Parapertusis Not detected Normal NOT DETECTED The [facility] Comment on above: Performed By: #### C VDAGS #### [facility] [address] [place] [address] Dr. Ashlie Shaffer. Pertussis Not detected Normal NOT DETECTED [facility] Comment on above: Performed By: #### C VDAGS #### [facility] [address] [place] [address] Dr. Ashlie Hills Chlamydia Pneumoniae Not detected Normal NOT DETECTED [facility] Comment on above: Performed By: #### C VDAGS #### [facility] [address] [place] [address] Dr. Ashlie Hills Coronavirus 229E Not detected Normal NOT DETECTED [facility] Comment on above: Performed By: #### C VDAGS #### [facility] [address] [place] [address] Dr. Ashlie Hills Coronavirus HKU1 Not detected Normal NOT DETECTED [facility] Comment on above: Performed By: #### C VDAGS #### [facility] [address] [place] [address] Dr. Ashlie Hills Coronavirus NL63 Not detected Normal NOT DETECTED [facility] Comment on above: Performed By: #### C VDAGS #### [facility] [address] [place] [address] Dr. Ashlie Hills Coronavirus OC43 Not detected Normal NOT DETECTED [facility] Comment on above: Performed By: #### C VDAGS #### [facility] [address] [address] [address] Ashlie Hills Influenza A H1 Not detected Normal NOT DETECTED [facility] Comment on above: Performed By: #### C VDAGS #### [facility] [address] [address] [address] Ashlie Hills Influenza A H1 2009 Not detected Normal NOT DETECTED [facility] Comment on above: Performed By: #### C VDAGS #### [facility] [address] [address] [address] Ashlie Hills Influenza A H3 Not detected Normal NOT DETECTED [facility] Comment on above: Performed By: #### C VDAGS #### [facility] [address] [address] [address] Ashlie Hills Influenza B Not detected Normal NOT DETECTED [facility] Comment on above: Performed By: #### C VDAGS #### [facility] [address] [address] [address] Ashlie Hills Metapneumovirus Not detected Normal NOT DETECTED [facility] Comment on above: Performed By: #### C VDAGS #### [facility] [address] [address] [address] Ashlie Hills Mycoplas. Pneumoniae Not detected Normal NOT DETECTED [facility] Comment on above: Performed By: #### C VDAGS #### [facility] [address] [place] [address] Dr. Ashlie Hills Parainfluenza 1 Not detected Normal NOT DETECTED [facility] Comment on above: Performed By: #### C VDAGS #### [facility] [address] [address] [address] Ashlie Hills Parainfluenza 2 Not detected Normal NOT DETECTED [facility] Comment on above: Performed By: #### C VDAGS #### [facility] [address] [place] [address] Dr. Ashlie Hills Parainfluenza 3 Detected Abnormal NOT DETECTED The [facility] Comment on above: Performed By: #### C VDAGS #### [facility] [address] [place] [address] Dr. Ashlie Hills Parainfluenza 4 Not detected Normal NOT DETECTED [facility] Comment on above: Performed By: #### C VDAGS #### [facility] [address] [place] [address] Dr. Ashlie Hills Rhino/Enterovirus Not detected Normal NOT DETECTED [facility] Comment on above: Performed By: #### C VDAGS #### [facility] [address] [place] [address] Dr. Ashlie Hills RP2 Header 1 RESPIRATORY PANEL: VIRUSES Normal [facility] Comment on above: Performed By: #### C VDAGS #### [facility] [address] [place] [address] Dr. Ashlie Hills RP2 Header 2 RESPIRATORY PANEL: BACTERIA Normal [facility] Comment on above: Performed By: #### C VDAGS #### [facility] [address] [place] [address] Dr. Ashlie Hills RSV Not detected Normal NOT DETECTED [facility] Comment on above: Performed By: #### C VDAGS #### [facility] [address] [place] [address] Dr. Ashlie Hills SARS-CoV-2 (COVID-19) RNA MADDY+probe Ql (Unsp spec) Not detected Normal NOT DETECTED [facility] Comment on above: Performed By: #### C VDAGS #### [facility] [address] [place] [address] Dr. Ashlie Hills XR CHEST 1 Von [...] by: MARYANNE POWER Date: 2022-12-04 22:23 Normal [facility] BLOOD GASES BTYon 12-04-2022 02 MODE ROOM AIR Normal [facility] Comment on above: Performed By: #### C BC #### [facility] [address] [address] [address] Ashlie Hills ALLENS TEST Positive Normal [facility] Comment on above: Performed By: #### C BC #### [facility] [address] [address] [address] Ashlie Hills Base excess Calc (Bld) [Moles/Vol] 5.4 mmol/L Critically high -2.0-2.0 [facility] Comment on above: Performed By: #### C BC #### [facility] [address] [address] [address] Ashlie Hills BIPAP PRESSURE Normal [facility] Comment on above: Performed By: #### C BC #### [facility] [address] [place] [address] Dr. Ashlie Hills CPAP [facility] Comment on above: Performed By: #### C BC #### [facility] [address] [place] [address] Dr. Ashlie Hills FIO2 [facility] Comment on above: Performed By: #### C BC #### [facility] [address] [address] [address] Ashlie Hills HCO3 (Bld) [Moles/Vol] 30.8 mmol/L Critically high 22.0-26.0 [facility] Comment on above: Performed By: #### C BC #### [facility] [address] [place] [address] Dr. Ashlie Hills LPM Normal [facility] Comment on above: Performed By: #### C BC #### [facility] [address] [address] [address] Ashlie Hills MINUTE VOLUME Normal [facility] Comment on above: Performed By: #### C BC #### [facility] [address] [place] [address] Dr. Ashlie Hills Oxygen (Bld) [Partial pressure] 46.3 mm[Hg] Critically low 80.0-100.0 [facility] Comment on above: Performed By: #### C BC #### [facility] [address] [address] [address] Ashlie Hills Oxygen saturation in Blood 83.9 % Critically low 95.0-100.0 [facility] Comment on above: Performed By: #### C BC #### [facility] [address] [address] [address] Ashlie Hills PCO2 54.2 mmHg Critically high 35.0-45.0 [facility] Comment on above: Performed By: #### C BC #### [facility] [address] [address] [address] Ashlie Hills [facility] Comment on above: Performed By: #### C BC #### [facility] [address] [place] [address] Dr. Ashlie Hills pH (Bld) 7.363 [pH] Normal 7.350-7.450 [facility] Comment on above: Performed By: #### C BC #### [facility] [address] [place] [address] Dr. Ashlie Hills [facility] Comment on above: Performed By: #### C BC #### [facility] [address] [place] [address] Dr. Ashlie Hills [facility] Comment on above: Performed By: #### C BC #### [facility] [address] [place] [address] Dr. Ashlie Hills PUNCTURE SITE LR [facility] Comment on above: Performed By: #### C BC #### [facility] [address] [place] [address] Dr. Ashlie Hills RATE [facility] Comment on above: Performed By: #### C BC #### [facility] [address] [address] [address] Ashlie Hills VENT MODE [facility] Comment on above: Performed By: #### C BC #### [facility] [address] [place] [address] Dr. Ashlie Hills [facility] Comment on above: Performed By: #### C BC #### [facility] [address] [place] [address] Dr. Ashlie Hills BNPon 12-04-2022 Natriuretic peptide B (Bld) [Mass/Vol] 76.0 pg/mL Normal <=900.0 [facility] Comment on above: Performed By: #### P OCGLUC #### [facility] [address] [place] [address] Dr. Ashlie Hills CBC AUTO DIFFon 12-04-2022 BASO # 0.1 103/ul Normal 0.0-0.1 [facility] Comment on above: Performed By: #### C BC #### [facility] [address] [place] [address] Dr. Ashlie Hills Basophils/100 WBC (Bld) 0.6 % Normal 0.2-2.0 [facility] Comment on above: Performed By: #### C BC #### [facility] [address] [place] [address] Dr. Ashlie Hills EO # 0.2 103/ul Normal 0.0-0.7 [facility] Comment on above: Performed By: #### C BC #### [facility] [address] [place] [address] Dr. Ashlie Hills Eosinophils/100 WBC (Bld) 1.9 % Normal 0.9-7.0 [facility] Comment on above: Performed By: #### C BC #### [facility] [address] [place] [address] Dr. Ashlie Hills Erythrocyte distribution width (RBC) [Ratio] 15.0 % Normal 11.0-15.0 [facility] Comment on above: Performed By: #### C BC #### [facility] [address] [place] [address] Dr. Ashlie Hills Hematocrit (Bld) [Volume fraction] 49.1 % Critically high 36.0-48.0 [facility] Comment on above: Performed By: #### C BC #### [facility] [address] [place] [address] Dr. Ashlie Hills Hemoglobin (Bld) [Mass/Vol] 15.6 g/dL Normal 12.0-16.0 [facility] Comment on above: Performed By: #### C BC #### [facility] [address] [place] [address] Dr. Ashlie Hills IG # 0.02 10e3/ul Normal 0.00-0.03 [facility] Comment on above: Performed By: #### C BC #### [facility] [address] [place] [address] Dr. Ashlie Hills IG % 0.2 % Normal 0.0-0.5 [facility] Comment on above: Performed By: #### C BC #### [facility] [address] [place] [address] Dr. Ashlie Hills LYMPH # 2.8 103/ul Normal 1.2-3.8 [facility] Comment on above: Performed By: #### C BC #### [facility] [address] [place] [address] Dr. Ashlie Hills Lymphocytes/100 WBC (Bld) 29.9 % Normal 20.5-60.0 [facility] Comment on above: Performed By: #### C BC #### [facility] [address] [place] [address] Dr. Ashlie Hills MANUAL DIFF REQ NO Normal [facility] Comment on above: Performed By: #### C BC #### [facility] [address] [place] [address] Dr. Ashlie Hills MCH (RBC) [Entitic mass] 28.5 pg Normal 26.7-34.0 [facility] Comment on above: Performed By: #### C BC #### [facility] [address] [place] [address] Dr. Ashlie Hills MCHC (RBC) [Mass/Vol] 31.8 g/dL Normal 29.9-35.2 [facility] Comment on above: Performed By: #### C BC #### [facility] [address] [place] [address] Dr. Ashlie Hills MCV (RBC) [Entitic vol] 89.8 fL Normal 81.0-99.0 [facility] Comment on above: Performed By: #### C BC #### [facility] [address] [address] [address] Ashlie Hills MONO # 1.0 103/ul Critically high 0.3-0.8 [facility] Comment on above: Performed By: #### C BC #### [facility] [address] [address] [address] Ashlie Hills Monocytes/100 WBC (Bld) 10.6 % Normal 1.7-12.0 [facility] Comment on above: Performed By: #### C BC #### [facility] [address] [address] [address] Ashlie Hills NEUT # 5.3 103/ul Normal 1.4-6.5 [facility] Comment on above: Performed By: #### C BC #### [facility] [address] [place] [address] Dr. Ashlie Hills Neutrophils/100 WBC (Bld) 56.8 % Normal 43.0-75.0 [facility] Comment on above: Performed By: #### C BC #### [facility] [address] [place] [address] Dr. Ashlie Hills Platelet mean volume (Bld) [Entitic vol] 12.5 fL Normal 9.5-13.5 [facility] Comment on above: Performed By: #### C BC #### [facility] [address] [place] [address] Dr. Ashlie Hills PLT 109 103/ul Critically low 150-450 [facility] Comment on above: Performed By: #### C BC #### [facility] [address] [place] [address] Dr. Ashlie Hills RBC 5.47 106/ul Critically high 4.20-5.40 [facility] Comment on above: Performed By: #### C BC #### [facility] [address] [place] [address] Dr. Ashlie Hills WBC 9.4 103/ul Normal 4.0-11.0 [facility] Comment on above: Performed By: #### C BC #### [facility] [address] [place], [place] [id number] Dr. Ashlie Hills PROF 14(COMP METB)on 023 Albumin [Mass/Vol] 2.9 g/dL Critically low 3.4-5.0 [facility] Comment on above: Performed By: #### C BC #### [facility] [address] [place] [address] Dr. Ashlie Hills Albumin/Globulin [Mass ratio] 0.6 {ratio} Normal [facility] Comment on above: Performed By: #### C BC #### [facility] [address] [place] [address] Dr. Ashlie Hills ALP [Catalytic activity/Vol] 64 U/L Normal 46-116 [facility] Comment on above: Performed By: #### C BC #### [facility] [address] [place] [address] Dr. Ashlie Hills ALT [Catalytic activity/Vol] 16 U/L Normal 14-59 [facility] Comment on above: Performed By: #### C BC #### [facility] [address] [place] [address] Dr. Ashlie Hills Anion gap [Moles/Vol] 9.6 mmol/L Normal [facility] Comment on above: Performed By: #### C BC #### [facility] [address] [place] [address] Dr. Ashlie Hills AST [Catalytic activity/Vol] 16 U/L Normal 15-37 [facility] Comment on above: Performed By: #### C BC #### [facility] [address] [place] [address] Dr. Ashlie Hlils Bilirubin [Mass/Vol] 0.5 mg/dL Normal 0.2-1.0 [facility] Comment on above: Performed By: #### C BC #### [facility] [address] [place] [address] Dr. Ashlie Hills Calcium [Mass/Vol] 8.7 mg/dL Normal 8.5-10.1 [facility] Comment on above: Performed By: #### C BC #### [facility] [address] [place] [address] Dr. Ashlie Hills Chloride [Moles/Vol] 103 mmol/L Normal 98-107 [facility] Comment on above: Performed By: #### C BC #### [facility] [address] [address] [address] Ashlie Hills CO2 [Moles/Vol] 30.7 mmol/L Normal 21.0-32.0 [facility] Comment on above: Performed By: #### C BC #### [facility] [address] [address] [address] Ashlie Hills Creatinine [Mass/Vol] 0.96 mg/dL Normal 0.55-1.02 [facility] Comment on above: Performed By: #### C BC #### [facility] [address] [place] [address] Dr. Ashlie Hills EGFR-AF BAHRAINI >60 Normal >=60 [facility] Comment on above: Performed By: #### C BC #### [facility] [address] [place] [address] Dr. Ashlie Hills EGFR-NON AF BAHRAINI >60 Normal >=60 [facility] Comment on above: Performed By: #### C BC #### [facility] [address] [place] [address] Dr. Ashlie Hills Globulin (S) [Mass/Vol] 4.7 g/dL Normal [facility] Comment on above: Performed By: #### C BC #### [facility] [address] [place] [address] Dr. Ashlie Hills Glucose [Mass/Vol] 170 mg/dL Critically high 74-106 [facility] Comment on above: Performed By: #### C BC #### [facility] [address] [place] [address] Dr. Ashlie Hills Potassium [Moles/Vol] 4.3 mmol/L Normal 3.5-5.1 [facility] Comment on above: Performed By: #### C BC #### [facility] [address] [place] [address] Dr. Ashlie Hills Protein [Mass/Vol] 7.6 g/dL Normal 6.4-8.2 [facility] Comment on above: Performed By: #### C BC #### [facility] [address] [address] [address] Ashlie Hills Sodium [Moles/Vol] 139 mmol/L Normal 136-145 [facility] Comment on above: Performed By: #### C BC #### [facility] [address] [place] [address] Dr. Ashlie Hills Urea nitrogen [Mass/Vol] 16.0 mg/dL Normal 7.0-18.0 [facility] Comment on above: Performed By: #### C BC #### [facility] [address] [place] [address] Dr. Ashlie Hills Urea nitrogen/Creatinine [Mass ratio] 16.7 mg/mg Normal [facility] Comment on above: Performed By: #### C BC #### [facility] [address] [place] [address] Dr. Ashlie Hills SYMPTOMATIC COVID-19 ANTIGEN on 12-04-2022 EUA Statement SEE BELOW Normal [facility] Comment on above: Result Comment: This [...] sooner. Performed By: #### C VDAGS #### [facility] [address] [place] [address] Dr. Ashlie Hills SARS-CoV-2 (COVID-19) RNA MADDY+probe Ql (Unsp spec) Negative Normal NEGATIVE [facility] Comment on above: Performed By: #### C VDAGS #### [facility] [address] [place] [address] Dr. Ashlie Hills TROPONIN, HIGH SENSITIVITYon 12-04-2022 HSTROP 8.9 pg/mL Normal 4.0-51.3 [facility] Comment on above: Result Comment: CUT- OFF POINTS HAVE BEEN ESTABLISHED BASED ON THE FOURTH UNIVERSAL DEFINITIONS OF MYOCARDIAL INFARCTION. THE UPPER REFERENCE LIMIT (URL) OF TROPONIN, DEFINED THE 99TH PERCENTILE OF cTnI DISTRIBUTION IN A REFERENCE POPULATION, HAS BEEN CONFIRMED THE DECISION THRESHOLD FOR CA DIAGNOSIS. Performed By: #### P OCGLUC #### [facility] [address] [place] [address] Dr. Ashlie Hills MICROALBUMIN, RAND URon - mALB 35.8 mg/dL Critically high <=30.0 [facility] Comment on above: Performed By: #### C VDAGS #### [facility] [address] [place] [address] Dr. Ashlie Hills UA RANDOM W/MICROSCOPICon BACTERIA NONE SEEN Normal NONE SEEN [facility] Comment on above: Performed By: #### C VDAGS #### [facility] [address] [place] [address] Dr. Ashlie Hills Bilirubin Ql (U) Negative Normal NEGATIVE [facility] Comment on above: Performed By: #### C VDAGS #### [facility] [address] [place] [address] Dr. Ashlie Hills CAST SEEN Abnormal NONE SEEN [facility] Comment on above: Performed By: #### C VDAGS #### [facility] [address] [place] [address] Dr. Ashlie Hills Clarity (U) CLEAR Normal CLEAR [facility] Comment on above: Performed By: #### C VDAGS #### [facility] [address] [place] [address] Dr. Ashlie Hills Color (U) YELLOW Normal YELLOW [facility] Comment on above: Performed By: #### C VDAGS #### [facility] [address] [place] [address] Dr. Ashlie Hills Crystals LM Nom (Urine sed) NONE SEEN Normal NONE SEEN [facility] Comment on above: Performed By: #### C VDAGS #### [facility] [address] [place] [address] Dr. Ashlie Hills Epithelial cells LM Ql (Urine sed) MODERATE Abnormal NONE SEEN /RARE [facility] Comment on above: Performed By: #### C VDAGS #### [facility] [address] [place] [address] Dr. Ashlie Hills Glucose Ql (U) Negative Normal NEGATIVE [facility] Comment on above: Performed By: #### C VDAGS #### [facility] [address] [place] [address] Dr. Ashlie Hills Hemoglobin Ql (U) TRACE-INTACT Abnormal NEGATIVE [facility] Comment on above: Performed By: #### C VDAGS #### [facility] [address] [place] [address] Dr. Ashlie Hills Ketones Ql (U) Negative Normal NEGATIVE [facility] Comment on above: Performed By: #### C VDAGS #### [facility] [address] [place] [address] Dr. Ashlie Hills LEUKOCYTES Negative Normal NEGATIVE [facility] Comment on above: Performed By: #### C VDAGS #### [facility] [address] [place] [address] Dr. Ashlie Hills MUCOUS NONE SEEN Normal NONE SEEN [facility] Comment on above: Performed By: #### C VDAGS #### [facility] [address] [place] [address] Dr. Ashlie Hills Nitrite Ql (U) Negative Normal NEGATIVE [facility] Comment on above: Performed By: #### C VDAGS #### [facility] [address] [place] [address] Dr. Ashlie Hills pH (U) 5.0 [pH] Normal 5-9 [facility] Comment on above: Performed By: #### C VDAGS #### [facility] [address] [place] [address] Dr. Ashlie Hills RBC 0-2 Normal 0-2 [facility] Comment on above: Performed By: #### C VDAGS #### [facility] [address] [address] [address] Ashlie Hills SPEC GRAVITY 1.030 Abnormal 1.005-<=1.025 [facility] Comment on above: Performed By: #### C VDAGS #### [facility] [address] [address] [address] Ashlie Hills UA PROTEIN 100 mg/dl Abnormal NEGATIVE/ TRACE [facility] Comment on above: Performed By: #### C VDAGS #### [facility] [address] [place] [address] Dr. Ashlie Hills Urobilinogen Qn (U) 0.2 {Little'U}/dL Normal 0.2 - 1. 0 [facility] Comment on above: Performed By: #### C VDAGS #### [facility] [address] [place] [address] Dr. Ashlie Hills WBC NONE SEEN Normal NONE SEEN [facility] Comment on above: Performed By: #### C VDAGS #### [facility] [address] [place] [address] Dr. Ashlie Hills CBC AUTO DIFFon 11-22-2022 BASO # 0.0 103/ul Normal 0.0-0.1 [facility] Comment on above: Performed By: #### C BC #### [facility] [address] [place] [address] Dr. Ashlie Hills Basophils/100 WBC (Bld) 0.3 % Normal 0.2-2.0 [facility] Comment on above: Performed By: #### C BC #### [facility] [address] [place] [address] Dr. Ashlie Hills EO # 0.4 103/ul Normal 0.0-0.7 [facility] Comment on above: Performed By: #### C BC #### [facility] [address] [place] [address] Dr. Ashlie Hills Eosinophils/100 WBC (Bld) 3.0 % Normal 0.9-7.0 [facility] Comment on above: Performed By: #### C BC #### [facility] [address] [place] [address] Dr. Ashlie Hills Erythrocyte distribution width (RBC) [Ratio] 15.3 % Critically high 11.0-15.0 [facility] Comment on above: Performed By: #### C BC #### [facility] [address] [place] [address] Dr. Ashlie Hills Hematocrit (Bld) [Volume fraction] 52.4 % Critically high 36.0-48.0 [facility] Comment on above: Performed By: #### C BC #### [facility] [address] [place] [address] Dr. Ashlie Hills Hemoglobin (Bld) [Mass/Vol] 16.8 g/dL Critically high 12.0-16.0 [facility] Comment on above: Performed By: #### C BC #### [facility] [address] [place] [address] Dr. Ashlie Hills IG # 0.04 10e3/ul Critically high 0.00-0.[address] [facility] Comment on above: Performed By: #### C BC #### [facility] [address] [place] [address] Dr. Ashlie Hills IG % 0.3 % Normal 0.0-0.5 [facility] Comment on above: Performed By: #### C BC #### [facility] [address] [place] [address] Dr. Ashlie Hills LYMPH # 4.5 103/ul Critically high 1.2-3.8 [facility] Comment on above: Performed By: #### C BC #### [facility] [address] [place] [address] Dr. Ashlie Hills Lymphocytes/100 WBC (Bld) 33.2 % Normal 20.5-60.0 [facility] Comment on above: Performed By: #### C BC #### [facility] [address] [place] [address] Dr. Ashlie Hills MANUAL DIFF REQ NO Normal [facility] Comment on above: Performed By: #### C BC #### [facility] [address] [address] [address] Ashlie Hills MCH (RBC) [Entitic mass] 28.0 pg Normal 26.7-34.0 [facility] Comment on above: Performed By: #### C BC #### [facility] [address] [place] [address] Dr. Ashlie Hills MCHC (RBC) [Mass/Vol] 32.1 g/dL Normal 29.9-35.2 [facility] Comment on above: Performed By: #### C BC #### [facility] [address] [place] [address] Dr. Ashlie Hills MCV (RBC) [Entitic vol] 87.3 fL Normal 81.0-99.0 [facility] Comment on above: Performed By: #### C BC #### [facility] [address] [place] [address] Dr. Ashlie Hills MONO # 0.8 103/ul Normal 0.3-0.8 [facility] Comment on above: Performed By: #### C BC #### [facility] [address] [place] [address] Dr. Ashlie Hills Monocytes/100 WBC (Bld) 5.7 % Normal 1.7-12.0 [facility] Comment on above: Performed By: #### C BC #### [facility] [address] [place] [address] Dr. Ashlie Hills NEUT # 7.8 103/ul Critically high 1.4-6.5 [facility] Comment on above: Performed By: #### C BC #### [facility] [address] [place] [address] Dr. Ashlie Hills Neutrophils/100 WBC (Bld) 57.5 % Normal 43.0-75.0 [facility] Comment on above: Performed By: #### C BC #### [facility] [address] [place] [address] Dr. Ashlie Hills Platelet mean volume (Bld) [Entitic vol] 12.0 fL Normal 9.5-13.5 [facility] Comment on above: Performed By: #### C BC #### [facility] [address] [address] [address] Ashlie Hills PLT 152 103/ul Normal 150-450 [facility] Comment on above: Performed By: #### C BC #### [facility] [address] [address] [address] Ashlie Hills RBC 6.00 106/ul Critically high 4.20-5.40 [facility] Comment on above: Performed By: #### C BC #### [facility] [address] [address] [address] Ashlie Hills WBC 13.6 103/ul Critically high 4.0-11.0 [facility] Comment on above: Performed By: #### C BC #### [facility] [address] [place] [address] Dr. Ashlie Hills LIPID PROFILEon 11-22-2022 CHOL-HDL RATIO NORM SEE BELOW Normal [facility] Comment on above: Result Comment: 3.3 - 4.4 LOW RISK 4.4 - 7.1 AVERAGE RISK 7.1 - 11.0 MODERATE RISK >11.0 HIGH RISK Performed By: #### C BC #### [facility] [address] [place] [address] Dr. Ashlie Hills Cholesterol [Mass/Vol] 139 mg/dL Normal <=200 [facility] Comment on above: Performed By: #### C BC #### [facility] [address] [place] [address] Dr. Ashlie Hills Cholesterol in HDL [Mass/Vol] 35 mg/dL Critically low 40-60 [facility] Comment on above: Performed By: #### C BC #### [facility] [address] [address] [address] Ashlie Hills Cholesterol in LDL [Mass/Vol] 67.4 mg/dL Normal [facility] Comment on above: Performed By: #### C BC #### [facility] [address] [place] [address] Dr. Ashlie Hills Cholesterol.total/Ch olesterol in HDL [Mass ratio] 4.0 {ratio} Normal [facility] Comment on above: Performed By: #### C BC #### [facility] [address] [address] [address] Ashlie Hills HDL NORMAL > or = 60 mg/dl - LOW CARDIOVASCULAR RISK <40 mg/dl - HIGH CARDIOVASCULAR RISK Normal [facility] Comment on above: Performed By: #### C BC #### [facility] [address] [address] [address] Ashlie Hills LDL CALC NORMAL SEE BELOW Normal [facility] Comment on above: Result Comment: <100 mg/dl OPTIMAL 100 - 129 mg/dl NEAR OR ABOVE OPTIMAL 130 - 159 mg/dl BORDERLINE HIGH 160 - 189 mg/dl HIGH >190 mg/dl VERY HIGH Performed By: #### C BC #### [facility] [address] [address] [address] Ashlie Hills Triglyceride [Mass/Vol] 183 mg/dL Critically high <=150 [facility] Comment on above: Performed By: #### C BC #### [facility] [address] [address] [address] Ashlie Hills VLDL CALC 36.6 mg/dL Normal [facility] Comment on above: Performed By: #### C BC #### [facility] [address] [address] [address] Ashlie Hills MG MAMM SCREEN 3D ALEX CADon 11-22-2022 MG MAMM SCREEN 3D ALEX CAD Patient: MITZI MACAIS Exam Date: 11/22/2022 : 1970 Gender:F Ordering : SAYDA BLAS [facility] Admission #: [id number] Family : Order #: [id number] CLICK HERE TO VIEW EXAM RADIOLOGY REPORT [...] unknown cancer at age 75. LOCATION: [facility] BREAST COMPOSITION: Almost entirely fatty. FINDINGS: [...] M.D. on 11/22/2022 at 12:09 Normal [facility] PROF 14(COMP METB)on 023 Albumin [Mass/Vol] 3.0 g/dL Critically low 3.4-5.0 [facility] Comment on above: Performed By: #### C BC #### [facility] [address] [place] [address] Dr. Ashile Hills Albumin/Globulin [Mass ratio] 0.6 {ratio} Normal [facility] Comment on above: Performed By: #### C BC #### [facility] [address] [place] [address] Dr. Ashlie Hills ALP [Catalytic activity/Vol] 68 U/L Normal 46-116 [facility] Comment on above: Performed By: #### C BC #### [facility] [address] [place] [address] Dr. Ashlie Hills ALT [Catalytic activity/Vol] 14 U/L Normal 14-59 [facility] Comment on above: Performed By: #### C BC #### [facility] [address] [place] [address] Dr. Ashlie Hills Anion gap [Moles/Vol] 12.1 mmol/L Normal [facility] Comment on above: Performed By: #### C BC #### [facility] [address] [place] [address] Dr. Ashlie Hills AST [Catalytic activity/Vol] 9 U/L Critically low 15-37 [facility] Comment on above: Performed By: #### C BC #### [facility] [address] [address] [address] Ashlie Hills Bilirubin [Mass/Vol] 0.4 mg/dL Normal 0.2-1.0 [facility] Comment on above: Performed By: #### C BC #### [facility] [address] [address] [address] Ashlie Hills Calcium [Mass/Vol] 9.0 mg/dL Normal 8.5-10.1 [facility] Comment on above: Performed By: #### C BC #### [facility] [address] [place] [address] Dr. Ashlie Hills Chloride [Moles/Vol] 105 mmol/L Normal 98-107 [facility] Comment on above: Performed By: #### C BC #### [facility] [address] [address] [address] Ashlie Hills CO2 [Moles/Vol] 30.7 mmol/L Normal 21.0-32.0 [facility] Comment on above: Performed By: #### C BC #### [facility] [address] [place] [address] Dr. Ashlie Hills Creatinine [Mass/Vol] 0.77 mg/dL Normal 0.55-1.02 [facility] Comment on above: Performed By: #### C BC #### [facility] [address] [address] [address] Ashlie Hills EGFR-AF BAHRAINI >60 Normal >=60 [facility] Comment on above: Performed By: #### C BC #### [facility] [address] [address] [address] Ashlie Hills EGFR-NON AF BAHRAINI >60 Normal >=60 [facility] Comment on above: Performed By: #### C BC #### [facility] [address] [place] [address] Dr. Ashlie Hills Globulin (S) [Mass/Vol] 4.8 g/dL Normal [facility] Comment on above: Performed By: #### C BC #### [facility] [address] [address] [address] Ashlie Hills Glucose [Mass/Vol] 162 mg/dL Critically high 74-106 [facility] Comment on above: Performed By: #### C BC #### [facility] [address] [address] [address] Ashlie Hills Potassium [Moles/Vol] 3.8 mmol/L Normal 3.5-5.1 [facility] Comment on above: Performed By: #### C BC #### [facility] [address] [address] [address] Ashlie Hills Protein [Mass/Vol] 7.8 g/dL Normal 6.4-8.2 [facility] Comment on above: Performed By: #### C BC #### [facility] [address] [address] [address] Ashlie Hills Sodium [Moles/Vol] 144 mmol/L Normal 136-145 [facility] Comment on above: Performed By: #### C BC #### [facility] [address] [address] [address] Ashlie Hills Urea nitrogen [Mass/Vol] 24.0 mg/dL Critically high 7.0-18.0 [facility] Comment on above: Performed By: #### C BC #### [facility] [address] [address] [address] Ashlie Hills Urea nitrogen/Creatinine [Mass ratio] 31.2 mg/mg Normal [facility] Comment on above: Performed By: #### C BC #### [facility] [address] [address] [address] Ashlie Hills Patient Educationon 11-16-19 Patient [...] Spinach (cooked), rhubarb, beets, sweet potatoes, and [place] chard. ? Peanuts. ? Potato chips, faroese fries, and baked potatoes with skin on. ? Nuts and nut products. ? Chocolate. ? If you regularly take a diuretic medicine, make sure to eat at least 1 or 2 servings of fruits or vegetables that are high in potassium each day. These include: ? Avocado. ? Banana. ? [place], prune, carrot, or tomato juice. ? Baked [...] fish oil, or vitamin B6. ? Take lslx-vsn-cfyyzuw and prescription medicines only as told by your health care provider. These include supplements. What foods should I limit? Limit your in (more content not included)... Normal [facility] Reminderson 11-15-2022 Reminders - From: Maria Elena Negrete To: SHEA Fried Zacarias; Sent: 11/15/2022 14:23:36 EDT Show up: 04/17/2024 14:23:00 EDT Subject: Schedule CT AP w con Due Date/Time: 05/18/2024 13:23:00 EST Please schedule [address] AP w con for adrenal mass. Normal [facility] Urology Office/Clinic Noteon 11-15-2022 Urology Office/Clinic [...] Contact Information ZACARIAS HOWELL, GAVIOTA Webb, URL [address] [place] [address] Additional Instructions: [address] AP w [...] (1/2 pack (more content not included)... Normal [facility] Comment on above: Result Comment: Elec tronically Signed By: GAVIOTA VEGA PA-C\.br\Date and Time Signed: 11/15/22 14:32 EDT\.br\Electronically Co-Signed By: Maria Elena Negrete P\.br\Date and Time Co-Signed: 11/15/22 14:22 EDT\.br\Electronically Co-Signed By: Maria Elena Negrete P\.br\Date and Time Co-Signed: 11/15/22 14:22 EDT CBC AUTO DIFFon 10-05-2022 BASO # 0.1 103/ul Normal 0.0-0.1 [facility] Comment on above: Performed By: #### C BC #### [facility] [address] [address] [address] Ashlie Hills Basophils/100 WBC (Bld) 0.6 % Normal 0.2-2.0 [facility] Comment on above: Performed By: #### C BC #### [facility] [address] [address] [address] Ashlie Hills EO # 0.3 103/ul Normal 0.0-0.7 [facility] Comment on above: Performed By: #### C BC #### [facility] [address] [address] [address] Ashlie Hills Eosinophils/100 WBC (Bld) 2.1 % Normal 0.9-7.0 [facility] Comment on above: Performed By: #### C BC #### [facility] [address] [address] [address] Ashlie Hills Erythrocyte distribution width (RBC) [Ratio] 15.9 % Critically high 11.0-15.0 [facility] Comment on above: Performed By: #### C BC #### [facility] [address] [address] [address] Ashlie Hills Hematocrit (Bld) [Volume fraction] 51.8 % Critically high 36.0-48.0 [facility] Comment on above: Performed By: #### C BC #### [facility] [address] [address] [address] Ashlie Hills Hemoglobin (Bld) [Mass/Vol] 16.6 g/dL Critically high 12.0-16.0 [facility] Comment on above: Performed By: #### C BC #### [facility] [address] [place] [address] Dr. Ashlie Hills IG # 0.03 10e3/ul Normal 0.00-0.03 [facility] Comment on above: Performed By: #### C BC #### [facility] [address] [place] [address] Dr. Ashlie Hills IG % 0.2 % Normal 0.0-0.5 [facility] Comment on above: Performed By: #### C BC #### [facility] [address] [place] [address] Dr. Ashlie Hills LYMPH # 3.9 103/ul Critically high 1.2-3.8 [facility] Comment on above: Performed By: #### C BC #### [facility] [address] [place] [address] Dr. Ashlie Hills Lymphocytes/100 WBC (Bld) 31.7 % Normal 20.5-60.0 [facility] Comment on above: Performed By: #### C BC #### [facility] [address] [place] [address] Dr. Ashlie Hills MANUAL DIFF REQ NO Normal [facility] Comment on above: Performed By: #### C BC #### [facility] [address] [place] [address] Dr. Ashlie Hills MCH (RBC) [Entitic mass] 27.9 pg Normal 26.7-34.0 [facility] Comment on above: Performed By: #### C BC #### [facility] [address] [place] [address] Dr. Ashlie Hills MCHC (RBC) [Mass/Vol] 32.0 g/dL Normal 29.9-35.2 [facility] Comment on above: Performed By: #### C BC #### [facility] [address] [place] [address] Dr. Ashlie Hills MCV (RBC) [Entitic vol] 87.1 fL Normal 81.0-99.0 [facility] Comment on above: Performed By: #### C BC #### [facility] [address] [place] [address] Dr. Ashlie Hills MONO # 0.7 103/ul Normal 0.3-0.8 [facility] Comment on above: Performed By: #### C BC #### [facility] [address] [place] [address] Dr. Ashlie Hills Monocytes/100 WBC (Bld) 5.8 % Normal 1.7-12.0 [facility] Comment on above: Performed By: #### C BC #### [facility] [address] [place] [address] Dr. Ashlie Hills NEUT # 7.3 103/ul Critically high 1.4-6.5 [facility] Comment on above: Performed By: #### C BC #### [facility] [address] [place] [address] Dr. Ashlie Hills Neutrophils/100 WBC (Bld) 59.6 % Normal 43.0-75.0 [facility] Comment on above: Performed By: #### C BC #### [facility] [address] [place] [address] Dr. Ashlie Hills Platelet mean volume (Bld) [Entitic vol] 11.7 fL Normal 9.5-13.5 [facility] Comment on above: Performed By: #### C BC #### [facility] [address] [place] [address] Dr. Ashlie Hills PLT 117 103/ul Critically low 150-450 [facility] Comment on above: Performed By: #### C BC #### [facility] [address] [place] [address] Dr. Ashlie Hills RBC 5.95 106/ul Critically high 4.20-5.40 [facility] Comment on above: Performed By: #### C BC #### [facility] [address] [place] [address] Dr. Ashlie Hills WBC 12.3 103/ul Critically high 4.0-11.0 [facility] Comment on above: Performed By: #### C BC #### [facility] [address] [place] [address] ABD/PELV W Alfonzo [...] RICCO PICKARD Date: 2022-10-05 13:13 Normal [facility] ER URINE PROFILEon 3 Bilirubin Ql (U) Negative Normal NEGATIVE [facility] Comment on above: Performed By: #### P OCGLUC #### [facility] [address] [place] [address] Dr. Ashlie Hills Clarity (U) CLEAR Normal CLEAR [facility] Comment on above: Performed By: #### P OCGLUC #### [facility] [address] [place] [address] Dr. Ashlie Hills Color (U) YELLOW Normal YELLOW [facility] Comment on above: Performed By: #### P OCGLUC #### [facility] [address] [place] [address] Dr. Ashlie Hills ERUAHD A micrscopic examination will be performed if indicated. Normal [facility] Comment on above: Performed By: #### P OCGLUC #### [facility] [address] [place] [address] Dr. Ashlie Hills Glucose Ql (U) Negative Normal NEGATIVE [facility] Comment on above: Performed By: #### P OCGLUC #### [facility] [address] [address] [address] Ashlie Hills Hemoglobin Ql (U) Negative Normal NEGATIVE [facility] Comment on above: Performed By: #### P OCGLUC #### [facility] [address] [address] [address] Ashlie Hills Ketones Ql (U) Negative Normal NEGATIVE [facility] Comment on above: Performed By: #### P OCGLUC #### [facility] [address] [address] [address] Ashlie Hills LEUKOCYTES Negative Normal NEGATIVE [facility] Comment on above: Performed By: #### P OCGLUC #### [facility] [address] [place] [address] Dr. Ashlie Hills Nitrite Ql (U) Negative Normal NEGATIVE [facility] Comment on above: Performed By: #### P OCGLUC #### [facility] [address] [address] [address] Ashlie Hills pH (U) 6.0 [pH] Normal 5-9 [facility] Comment on above: Performed By: #### P OCGLUC #### [facility] [address] [address] [address] Ashlie Hills Protein (U) [Mass/Vol] 100 mg/dL Abnormal NEGATIVE/ TRACE [facility] Comment on above: Performed By: #### P OCGLUC #### [facility] [address] [address] [address] Ashlie Hills SPEC GRAVITY 1.010 Normal 1.005-<=1.025 [facility] Comment on above: Performed By: #### P OCGLUC #### [facility] [address] [address] [address] Ashlie Hills UR MICRO IND INDICATED Normal [facility] Comment on above: Performed By: #### P OCGLUC #### [facility] [address] [place] [address] Dr. Ashlie Hills Urobilinogen Qn (U) 1.0 {Little'U}/dL Normal 0.2 - 1. 0 [facility] Comment on above: Performed By: #### P OCGLUC #### [facility] [address] [place] [address] Dr. Ashlie Hills LIPASEon 10-05-2022 Lipase [Catalytic activity/Vol] 1771.0 U/L Critically high 73.0-393.0 [facility] Comment on above: Performed By: #### C BC #### [facility] [address] [place] [address] Dr. Ashlie Hills PREG HCG QUALon 10-05-2022 , QUAL Negative Normal NEGATIVE [facility] Comment on above: Performed By: #### P OCGLUC #### [facility] [address] [place] [address] Dr. Ashlie Hills PROF 14(COMP METB)on 023 Albumin [Mass/Vol] 3.2 g/dL Critically low 3.4-5.0 [facility] Comment on above: Performed By: #### C BC #### [facility] [address] [place] [address] Dr. Ashlie Hills Albumin/Globulin [Mass ratio] 0.7 {ratio} Normal [facility] Comment on above: Performed By: #### C BC #### [facility] [address] [place] [address] Dr. Ashlie Hills ALP [Catalytic activity/Vol] 70 U/L Normal 46-116 [facility] Comment on above: Performed By: #### C BC #### [facility] [address] [place] [address] Dr. Ashlie Hills ALT [Catalytic activity/Vol] 11 U/L Critically low 14-59 [facility] Comment on above: Performed By: #### C BC #### [facility] [address] [place] [address] Dr. Ashlie Hills Anion gap [Moles/Vol] 10.3 mmol/L Normal [facility] Comment on above: Performed By: #### C BC #### [facility] [address] [place] [address] Dr. Ashlie Hills AST [Catalytic activity/Vol] 11 U/L Critically low 15-37 [facility] Comment on above: Performed By: #### C BC #### [facility] [address] [place] [address] Dr. Ashlie Hills Bilirubin [Mass/Vol] 0.9 mg/dL Normal 0.2-1.0 [facility] Comment on above: Performed By: #### C BC #### [facility] [address] [place] [address] Dr. Ashlie Hills Calcium [Mass/Vol] 9.3 mg/dL Normal 8.5-10.1 [facility] Comment on above: Performed By: #### C BC #### [facility] [address] [place] [address] Dr. Ashlie Hills Chloride [Moles/Vol] 105 mmol/L Normal 98-107 [facility] Comment on above: Performed By: #### C BC #### [facility] [address] [place] [address] Dr. Ashlie Hills CO2 [Moles/Vol] 30.6 mmol/L Normal 21.0-32.0 [facility] Comment on above: Performed By: #### C BC #### [facility] [address] [place] [address] Dr. Ashlie Hills Creatinine [Mass/Vol] 0.62 mg/dL Normal 0.55-1.02 [facility] Comment on above: Performed By: #### C BC #### [facility] [address] [place] [address] Dr. Ashlie Hills EGFR-AF BAHRAINI >60 Normal >=60 [facility] Comment on above: Performed By: #### C BC #### [facility] [address] [place] [address] Dr. Ashlie Hills EGFR-NON AF BAHRAINI >60 Normal >=60 [facility] Comment on above: Performed By: #### C BC #### [facility] [address] [place] [address] Dr. Ashlie Hills Globulin (S) [Mass/Vol] 4.6 g/dL Normal [facility] Comment on above: Performed By: #### C BC #### [facility] [address] [place] [address] Dr. Ashlie Hills Glucose [Mass/Vol] 85 mg/dL Normal 74-106 [facility] Comment on above: Performed By: #### C BC #### [facility] [address] [place] [address] Dr. Ashlie Hills Potassium [Moles/Vol] 3.9 mmol/L Normal 3.5-5.1 [facility] Comment on above: Performed By: #### C BC #### [facility] [address] [place] [address] Dr. Ashlie Hills Protein [Mass/Vol] 7.8 g/dL Normal 6.4-8.2 [facility] Comment on above: Performed By: #### C BC #### [facility] [address] [place] [address] Dr. Ashlie Hills Sodium [Moles/Vol] 142 mmol/L Normal 136-145 [facility] Comment on above: Performed By: #### C BC #### [facility] [address] [place] [address] Dr. Ashlie Hills Urea nitrogen [Mass/Vol] 12.0 mg/dL Normal 7.0-18.0 [facility] Comment on above: Performed By: #### C BC #### [facility] [address] [place] [address] Dr. Ashlie Hills Urea nitrogen/Creatinine [Mass ratio] 19.4 mg/mg Normal [facility] Comment on above: Performed By: #### C BC #### [facility] [address] [place] [address] Dr. Ashlie Hills URINE MICROSCOPIC ONLYon BACTERIA TRACE Abnormal NONE SEEN [facility] Comment on above: Performed By: #### P OCGLUC #### [facility] [address] [place] [address] Dr. Ashlie Hills Bacteria identified Cx Nom (U) NOT INDICATED Normal [facility] Comment on above: Performed By: #### P OCGLUC #### [facility] [address] [place] [address] Dr. Ashlie Hills CAST NONE SEEN Normal NONE SEEN [facility] Comment on above: Performed By: #### P OCGLUC #### [facility] [address] [place] [address] Dr. Ashlie Hills Crystals LM Nom (Urine sed) NONE SEEN Normal NONE SEEN [facility] Comment on above: Performed By: #### P OCGLUC #### [facility] [address] [place] [address] Dr. Ashlie Hills Epithelial cells LM Ql (Urine sed) MODERATE Abnormal NONE SEEN /RARE [facility] Comment on above: Performed By: #### P OCGLUC #### [facility] [address] [place] [address] Dr. Ashlie Hills MUCOUS NONE SEEN Normal NONE SEEN [facility] Comment on above: Performed By: #### P OCGLUC #### [facility] [address] [place] [address] Dr. Ashlie Hills RBC 0-2 Normal 0-2 [facility] Comment on above: Performed By: #### P OCGLUC #### [facility] [address] [place] [address] Dr. Ashlie Hills WBC 0-2 Abnormal NONE SEEN [facility] Comment on above: Performed By: #### P OCGLUC #### [facility] [address] [place] [address] Dr. Ashlie Hills Covid-19 PCR ([facility])on 09-06 SARS-CoV-2 (COVID-19) RNA MADDY+probe Ql (Unsp spec) Detected Abnormal NOT DETECTED [facility] Comment on above: Result Comment: This test is not yet approved or cleared by the [place] FDA. When there are no FDA-approved or cleared tests available, and other criteria are met, FDA can make tests available under an emergency access mechanism called an Emergency Use Authorization (EUA). The EUA for this test is supported by the Log Chain Worker of Health and Human Service's declaration [...] used). Performed By: #### C VDAGS #### [facility] [address] [place] [address] Dr. Ashlie Hills INFLUENZA A AND B AGon 09-21 [facility] SEE BELOW Normal [facility] Comment on above: Result Comment: Nega tive for Flu A protein angiten. Infection due to Flu A cannot be ruled out. Flu A angiten in the sample may be below the detection limit of the test. Performed By: #### I NFLUAB #### [facility] [address] [place] [address] Dr. Ashlie Hills [facility] SEE BELOW Normal [facility] Comment on above: Result Comment: Nega tive for Flu B protein antigen. Infection due to Flu B cannot be ruled out. Flu B antigen in the sample may be below the detection limit of the test. Performed By: #### I NFLUAB #### [facility] [address] [place] [address] Dr. Ashlie Hills INFLUENZA A AG Negative Normal NEGATIVE SEE COMMENT [facility] Comment on above: Performed By: #### I NFLUAB #### [facility] [address] [place] [address] Dr. Ashlie Hills INFLUENZA B AG Negative Normal NEGATIVE SEE COMMENT [facility] Comment on above: Performed By: #### I NFLUAB #### [facility] [address] [place] [address] Dr. Ashlie Hills RAD - CT Reporton 07-31-2022 RAD - CT Report [id number] #[id number]:127 Normal [facility] CT ABD/PELV W CONon 07-27-19 CT [...] to at least 10/21/2018, unchanged. https://www.ncbi.nlm .nih.gov/pmc/article s/[email or web address]/ Electronically authenticated by: COLLIN HUERTAS Date: 2022-07-27 14:56 Normal [facility] Reminderson 07-27-2022 Reminders - From: Raquel Tidwell To: EU - Recalls Vargas; Sent: 02/06/2022 11:45:57 EDT Show up: 07/09/2022 11:45:00 EST Subject: Ct scan Due Date/Time: 07/31/2022 11:45:00 EST Reminder/Recall Pt needs Ct scan abd/pelvis w contrast ATTN Adrenals scheduled prior to Aug 2022 appt. She wants [facility] order faxed to [facility] Pt scheduled for 07/27/2022 will monitor [facility] for results over the next few days Normal [facility] Physician Orderon 07-19-2022 Physician Order [id number] #[id number]:127 Normal [facility] CREATININEon 07-18-2022 Creatinine [Mass/Vol] 0.81 mg/dL Normal 0.55-1.02 [facility] Comment on above: Performed By: #### C BC #### [facility] [address] [place], [place] [address] Dr. Ashlie Hills EGFR-AF BAHRAINI >60 Normal >=60 [facility] Comment on above: Performed By: #### C BC #### [facility] [address] [place], [place] [address] Dr. Ashlie Hills EGFR-NON AF BAHRAINI >60 Normal >=60 [facility] Comment on above: Performed By: #### C #### [facility] [address] [place], [place] [address] LOW EXT W [...] PATRICIA IVAN Date: 2022-07-18 14:58 Normal [facility] XR KNEE LT 1_2 Von XR KNEE [...] by: HATTIE BAUTISTA Date: 2022-07-18 12:00 Normal [facility] Covid-19 PCR ([facility])on 06-09 SARS-CoV-2 (COVID-19) RNA MADDY+probe Ql (Unsp spec) Not detected Normal NOT DETECTED [facility] Comment on above: Result Comment: This test is not yet approved or cleared by the [place] FDA. When there are no FDA-approved or cleared tests available, and other criteria are met, FDA can make tests available under an emergency access mechanism called an Emergency Use Authorization (EUA). The EUA for this test is supported by the Log Chain Worker of Health and Human Service's (HHS's) [...] SARS-CoV-2. Performed By: #### C BC #### [facility] [address] [place] [address] Dr. Ashlie Hills INFLUENZA A AND B AGon 07-06 [facility] SEE BELOW Normal [facility] Comment on above: Result Comment: Nega tive for Flu A protein angiten. Infection due to Flu A cannot be ruled out. Flu A angiten in the sample may be below the detection limit of the test. Performed By: #### C BC #### [facility] [address] [place] [address] Dr. Ashlie Hills INFLUBNEG SEE BELOW Normal [facility] Comment on above: Result Comment: Nega tive for Flu B protein antigen. Infection due to Flu B cannot be ruled out. Flu B antigen in the sample may be below the detection limit of the test. Performed By: #### C BC #### [facility] [address] [place] [address] Dr. Ashlie Hills INFLUENZA A AG Negative Normal NEGATIVE SEE COMMENT [facility] Comment on above: Performed By: #### C BC #### [facility] [address] [place] [address] Dr. Ashlie Hills INFLUENZA B AG Negative Normal NEGATIVE SEE COMMENT [facility] Comment on above: Performed By: #### C BC #### [facility] [address] [place], [place] [id number] Dr. Ashlie Hills POINT OF CARE GLUCOSEon 10-1 Glucose [Mass/Vol] 108 mg/dL Critically high 74-106 [facility] Comment on above: Performed By: #### C BC #### [facility] [address] [place] [address] Dr. Ashlie Hills RAGHU by IFAon 03-07-2022 Antinuclear Antibodies, IFA Negative Normal [facility] Comment on above: Result Comment: Nega tive <1:80 Borderline 1:80 Positive >1:80 ICAP nomenclature: AC-0 For more information about Hep-2 cell patterns use ANApatterns.org, the official website for the International Consensus on Antinuclear Antibody (RAGHU) Patterns (ICAP). Performed By: #### A NAIFA #### [facility] [address] [place] [address] Dr. Ashlie Hills IMMUNOFIXATION (TREVON), URINEo n 03-07-2022 TREVON Interpretation:U Comment Normal [facility] Comment on above: Result Comment: No m onoclonality detected. Performed By: #### C BC #### [facility] [address] [place] [address] Dr. Ashlie Hills IMMUNOFIXATION(TREVON),PROTEIN ELEC(PE),FREon 03-07-2022 Albumin [Mass/Vol] 3.0 g/dL Normal 2.9-4.4 [facility] Comment on above: Performed By: #### I NFLUAB #### [facility] [address] [place] [address] Dr. Ashlie Hills Albumin/Globulin [Mass ratio] 0.8 {ratio} Normal 0.7-1.7 [facility] Comment on above: Performed By: #### I NFLUAB #### [facility] [address] [place] [address] Dr. Ashlie Hills Jfhum-8-Jijzitmc 0.3 g/dL Normal 0.0-0.4 [facility] Comment on above: Performed By: #### I NFLUAB #### [facility] [address] [place] [address] Dr. Ashlie Hills Ipgnl-7-Pytujnli 1.0 g/dL Normal 0.4-1.0 [facility] Comment on above: Performed By: #### I NFLUAB #### [facility] [address] [place] [address] [address] Ashlie Hills Beta Globulin 1.8 g/dL Critically high 0.7-1.3 [facility] Comment on above: Performed By: #### I NFLUAB #### [facility] [address] [place] [address] Dr. Ashlie Hills Free [place] Lt Chains,S 45.2 mg/L Critically high 3.3-19.4 [facility] Comment on above: Performed By: #### I NFLUAB #### [facility] [address] [place] [address] Dr. Ashlie Hills Free Lambda Lt Chains,S 40.3 mg/L Critically high 5.7-26.3 [facility] Comment on above: Performed By: #### I NFLUAB #### [facility] [address] [place] [address] Dr. Ashlie Hills Gamma Globulin 0.8 g/dL Normal 0.4-1.8 [facility] Comment on above: Performed By: #### I NFLUAB #### [facility] [address] [place] [address] Dr. Ashlie Hills Globulin (S) [Mass/Vol] 3.9 g/dL Normal 2.2-3.9 [facility] Comment on above: Performed By: #### I NFLUAB #### [facility] [address] [place] [address] Dr. Ashlie Hills Immunofixation Result, Serum Comment Normal [facility] Comment on above: Result Comment: No m onoclonality detected. Performed By: #### I NFLUAB #### [facility] [address] [address] [address] Ashlie Hills Immunoglobulin A, Qn, Serum 776 mg/dL Critically high 87-352 [facility] Comment on above: Performed By: #### I NFLUAB #### [facility] [address] [address] [address] Ashlie Hills Immunoglobulin G, Qn, Serum 955 mg/dL Normal 586-1602 [facility] Comment on above: Performed By: #### I NFLUAB #### [facility] [address] [address] [address] Ashlie Hills Immunoglobulin M, Qn, Serum 39 mg/dL Normal 26-217 [facility] Comment on above: Performed By: #### I NFLUAB #### [facility] [address] [address] [address] Ashlie Hills [place]/Lambda Ratio, S 1.12 Normal 0.26-1.65 [facility] Comment on above: Performed By: #### I NFLUAB #### [facility] [address] [address] [address] Ashlie Hills M-Bright Not Observed Normal Not Observed [facility] Comment on above: Performed By: #### I NFLUAB #### [facility] [address] [place] [address] Dr. Ashlie Hills PDF . Normal [facility] Comment on above: Performed By: #### I NFLUAB #### [facility] [address] [place] [address] [address] Ashlie Hills Please note: Comment Normal [facility] Comment on above: Result Comment: Prot ein electrophoresis scan will follow via computer, mail, or biomedical engineering technologist delivery. Performed By: #### I NFLUAB #### [facility] [address] [address] [address] Ashlie Hills Protein [Mass/Vol] 6.9 g/dL Normal 6.0-8.5 [facility] Comment on above: Performed By: #### I NFLUAB #### [facility] [address] [place] [address] [address] Ashlie Hills C-PEPTIDE, SERUMon C-Peptide, Serum 3.1 ng/mL Normal 1.1-4.4 [facility] Comment on above: Result Comment: C-Pe ptide reference interval is for fasting patients. Performed By: #### C PEPT #### [facility] [address] [address] [address] Ashlie Hills HEP B SURFACE ANTIGEN SCREEN on 03-04-2022 HBsAg Screen Negative Normal Negative [facility] Comment on above: Performed By: #### C BC #### [facility] [address] [address] [address] Ashlie Hills HEPATITIS C VIRUS AB W/ REFL EX QUANTon 03-04-2022 HCV AB <0.1 Normal 0.0-0.9 [facility] Comment on above: Performed By: #### I NFLUAB #### [facility] [address] [place] [address] Dr. Ashlie Hills Interpretation: Comment Normal [facility] Comment on above: Result Comment: Nega tive Not infected with HCV, unless recent infection is suspected or other evidence exists to indicate HCV infection. Performed By: #### I NFLUAB #### [facility] [address] [address] [address] Ashlie Hills MICROALBUMIN/ CREATININE RAT IOon 03-04-2022 Albumin, Urine 367.4 ug/mL Normal Not Estab. [facility] Comment on above: Performed By: #### C BC #### [facility] [address] [place] [address] [address] Ashlie Hills Albumin/ Creatinine Ratio 239 mg/g creat Critically high 0-29 [facility] Comment on above: Result Comment: Norm al: 0 - 29 Moderately increased: 30 - 300 Severely increased: >300 Performed By: #### C BC #### [facility] [address] [place] [address] Dr. Ashlie Hills Creatinine, Urine 153.9 mg/dL Normal Not Estab. [facility] Comment on above: Performed By: #### C BC #### [facility] [address] [address] [address] Ashlie Hills VIT D 25-OH LABCORPon 2021 Vitamin D, 25-Hydroxy <4.0 Critically low 30.0-100.0 [facility] Comment on above: Result Comment: Graciela min D deficiency has been defined by the [place] [employer] and an Endocrine Society practice guideline as a level of serum 25-OH vitamin D less than 20 ng/mL (1,2). The Endocrine Society went on to further define vitamin D insufficiency as a level between 21 and 29 ng/mL (2). 1. IOM ([place] [employer]). 2010. Dietary reference intakes for calcium and D. [place]: The National Academies Press. 2. Lynda MF, Keely [place], Leandra LOPEZ, et al. Evaluation, treatment, and prevention of vitamin D deficiency: an Endocrine Society clinical practice guideline. JCEM. 2010; 96(7):1911-30. Performed By: #### C BC #### [facility] [address] [place] [address] Dr. Ashlie Hills GLYCOHEMOGLOBIN A1Con 2021 ADA RECOMMENDATION SEE BELOW Normal [facility] Comment on above: Result Comment: ADA RECOMMENDED LIMIT 4.0 - 6.0 ADA THERAPEUTIC TARGET < 7.0 ACTION SUGGESTED > 7.0 Performed By: #### C VDAGS #### [facility] [address] [place] [address] [address] Ashlie Hills Glucose [Mass/Vol] 295 mg/dL Normal [facility] Comment on above: Performed By: #### C VDAGS #### [facility] [address] [address] [address] Ashlie Hills HbA1c (Bld) [Mass fraction] 11.9 % Critically high 4.5-6.2 [facility] Comment on above: Performed By: #### C VDAGS #### [facility] [address] [place] [address] Dr. Ashlie Hills HEMOGRAM AND PLATELon 2021 Hematocrit (Bld) [Volume fraction] 56.3 % Critically high 36.0-48.0 [facility] Comment on above: Performed By: #### C VDAGS #### [facility] [address] [place] [address] Dr. Ashlie Hills Hemoglobin (Bld) [Mass/Vol] 18.0 g/dL Critically high 12.0-16.0 [facility] Comment on above: Performed By: #### C VDAGS #### [facility] [address] [place] [address] Dr. Ashlie Hills MCH (RBC) [Entitic mass] 29.5 pg Normal 26.7-34.0 [facility] Comment on above: Performed By: #### C VDAGS #### [facility] [address] [place] [address] Dr. Ashlie Hills MCHC (RBC) [Mass/Vol] 32.0 g/dL Normal 29.9-35.2 [facility] Comment on above: Performed By: #### C VDAGS #### [facility] [address] [place] [address] Dr. Ashlie Hills MCV (RBC) [Entitic vol] 92.1 fL Normal 81.0-99.0 [facility] Comment on above: Performed By: #### C VDAGS #### [facility] [address] [place] [address] Dr. Ashlie Hills PLT 123 103/ul Critically low 150-450 [facility] Comment on above: Performed By: #### C VDAGS #### [facility] [address] [place] [address] Dr. Ashlie Hills RBC 6.11 106/ul Critically high 4.20-5.40 [facility] Comment on above: Performed By: #### C VDAGS #### [facility] [address] [place] [address] Dr. Ashlie Hills WBC 16.4 103/ul Critically high 4.0-11.0 [facility] Comment on above: Performed By: #### C VDAGS #### [facility] [address] [place] [address] Dr. Ashlie Hills LIPID PROFILEon 03-03-2022 CHOL-HDL RATIO NORM SEE BELOW Normal [facility] Comment on above: Result Comment: 3.3 - 4.4 LOW RISK 4.4 - 7.1 AVERAGE RISK 7.1 - 11.0 MODERATE RISK >11.0 HIGH RISK Performed By: #### C VDAGS #### [facility] [address] [place] [address] [address] Ashlie Hills Cholesterol [Mass/Vol] 159 mg/dL Normal <=200 [facility] Comment on above: Performed By: #### C VDAGS #### [facility] [address] [place] [address] [address] Ashlie Hills Cholesterol in HDL [Mass/Vol] 40 mg/dL Normal 40-60 [facility] Comment on above: Performed By: #### C VDAGS #### [facility] [address] [place] [address] [address] Ashlie Hills Cholesterol in LDL [Mass/Vol] 81.8 mg/dL Normal [facility] Comment on above: Performed By: #### C VDAGS #### [facility] [address] [place] [address] [address] Ashlie Hills Cholesterol.total/Ch olesterol in HDL [Mass ratio] 4.0 {ratio} Normal [facility] Comment on above: Performed By: #### C VDAGS #### [facility] [address] [place] [address] [address] Ashlie Hills HDL NORMAL > or = 60 mg/dl - LOW CARDIOVASCULAR RISK <40 mg/dl - HIGH CARDIOVASCULAR RISK Normal [facility] Comment on above: Performed By: #### C VDAGS #### [facility] [address] [address] [address] Ashlie Hills LDL CALC NORMAL SEE BELOW Normal [facility] Comment on above: Result Comment: <100 mg/dl OPTIMAL 100 - 129 mg/dl NEAR OR ABOVE OPTIMAL 130 - 159 mg/dl BORDERLINE HIGH 160 - 189 mg/dl HIGH >190 mg/dl VERY HIGH Performed By: #### C VDAGS #### [facility] [address] [address] [address] Ashlie Hills Triglyceride [Mass/Vol] 186 mg/dL Critically high <=150 [facility] Comment on above: Performed By: #### C VDAGS #### [facility] [address] [place] [address] Dr. Ashlie Hills VLDL CALC 37.2 mg/dL Normal [facility] Comment on above: Performed By: #### C VDAGS #### [facility] [address] [place] [address] Dr. Ashlie Hills RENAL FUNCTION PANELon 03-03 Albumin [Mass/Vol] 3.1 g/dL Critically low 3.4-5.0 [facility] Comment on above: Performed By: #### C BC #### [facility] [address] [place] [address] Dr. Ashlie Hills Calcium [Mass/Vol] 9.2 mg/dL Normal 8.5-10.1 [facility] Comment on above: Performed By: #### C BC #### [facility] [address] [place] [address] Dr. Ashlie Hills Chloride [Moles/Vol] 102 mmol/L Normal 98-107 [facility] Comment on above: Performed By: #### C BC #### [facility] [address] [place] [address] Dr. Ashlie Hills CO2 [Moles/Vol] 31.9 mmol/L Normal 21.0-32.0 [facility] Comment on above: Performed By: #### C BC #### [facility] [address] [place] [address] Dr. Ashlie Hills Creatinine [Mass/Vol] 0.68 mg/dL Normal 0.55-1.02 [facility] Comment on above: Performed By: #### C BC #### [facility] [address] [place] [address] Dr. Ashlie Hills EGFR-AF BAHRAINI >60 Normal >=60 [facility] Comment on above: Performed By: #### C BC #### [facility] [address] [place] [address] Dr. Ashlie Hills EGFR-NON AF BAHRAINI >60 Normal >=60 [facility] Comment on above: Performed By: #### C BC #### [facility] [address] [address] [address] Ashlie Hills Glucose [Mass/Vol] 131 mg/dL Critically high 74-106 [facility] Comment on above: Performed By: #### C BC #### [facility] [address] [address] [address] Ashlie Hills Phosphate [Mass/Vol] 4.0 mg/dL Normal 2.6-4.7 [facility] Comment on above: Performed By: #### C BC #### [facility] [address] [address] [address] Ashlie Hills Potassium [Moles/Vol] 4.0 mmol/L Normal 3.5-5.1 [facility] Comment on above: Performed By: #### C BC #### [facility] [address] [place] [address] Dr. Ashlie Hills Sodium [Moles/Vol] 141 mmol/L Normal 136-145 [facility] Comment on above: Performed By: #### C BC #### [facility] [address] [address] [address] Ashlie Hills Urea nitrogen [Mass/Vol] 17.0 mg/dL Normal 7.0-18.0 [facility] Comment on above: Performed By: #### C BC #### [facility] [address] [place] [address] Dr. Ashlie Hills UA RANDOM W/MICROSCOPICon BACTERIA NONE SEEN Normal NONE SEEN [facility] Comment on above: Performed By: #### I NFLUAB #### [facility] [address] [place] [address] Dr. Ashlie Hills Bilirubin Ql (U) Negative Normal NEGATIVE [facility] Comment on above: Performed By: #### I NFLUAB #### [facility] [address] [place] [address] Dr. Ashlie Hills CAST NONE SEEN Normal NONE SEEN [facility] Comment on above: Performed By: #### I NFLUAB #### [facility] [address] [place] [address] Dr. Ashlie Hills Clarity (U) CLEAR Normal CLEAR [facility] Comment on above: Performed By: #### I NFLUAB #### [facility] [address] [place] [address] Dr. Ashlie Hills Color (U) YELLOW Normal YELLOW [facility] Comment on above: Performed By: #### I NFLUAB #### [facility] [address] [place] [address] Dr. Ashlie Hills Crystals LM Nom (Urine sed) NONE SEEN Normal NONE SEEN [facility] Comment on above: Performed By: #### I NFLUAB #### [facility] [address] [place] [address] Dr. Ashlie Hills Epithelial cells LM Ql (Urine sed) FEW Abnormal NONE SEEN /RARE [facility] Comment on above: Performed By: #### I NFLUAB #### [facility] [address] [place] [address] Dr. Ashlie Hills Glucose Ql (U) Negative Normal NEGATIVE [facility] Comment on above: Performed By: #### I NFLUAB #### [facility] [address] [place] [address] Dr. Ashlie Hills Hemoglobin Ql (U) Negative Normal NEGATIVE [facility] Comment on above: Performed By: #### I NFLUAB #### [facility] Laboratory [address] [place] [address] Dr. Ashlie Hills Ketones Ql (U) Negative Normal NEGATIVE [facility] Comment on above: Performed By: #### I NFLUAB #### [facility] [address] [place] [address] Dr. Ashlie Hills LEUKOCYTES Negative Normal NEGATIVE [facility] Comment on above: Performed By: #### I NFLUAB #### [facility] [address] [place] [address] Dr. Ashlie Hills MUCOUS NONE SEEN Normal NONE SEEN [facility] Comment on above: Performed By: #### I NFLUAB #### [facility] [address] [place] [address] Dr. Ashlie Hills Nitrite Ql (U) Negative Normal NEGATIVE [facility] Comment on above: Performed By: #### I NFLUAB #### [facility] [address] [place] [address] Dr. Ashlie Hills pH (U) 5.5 [pH] Normal 5-9 [facility] Comment on above: Performed By: #### I NFLUAB #### [facility] [address] [place] [address] Dr. Ashlie Hills RBC 0-2 Normal 0-2 [facility] Comment on above: Performed By: #### I NFLUAB #### [facility] [address] [place] [address] Dr. Ashlie Hills SPEC GRAVITY >=1.030 Abnormal 1.005-<=1.025 [facility] Comment on above: Performed By: #### I NFLUAB #### [facility] [address] [place] [address] Dr. Ashlie Hills UA PROTEIN 100 mg/dl Abnormal NEGATIVE/ TRACE [facility] Comment on above: Performed By: #### I NFLUAB #### [facility] [address] [place] [address] Dr. Ashlie Hills Urobilinogen Qn (U) 0.2 {Little'U}/dL Normal 0.2 - 1. 0 [facility] Comment on above: Performed By: #### I NFLUAB #### [facility] [address] [place] [address] Dr. Ashlie Hills WBC NONE SEEN Normal NONE SEEN [facility] Comment on above: Performed By: #### I NFLUAB #### [facility] [address] [place] [address] Dr. Ashlie Hills URIC ACID SERUMon 03-03-2022 Urate [Mass/Vol] 5.0 mg/dL Normal 2.6-6.0 [facility] Comment on above: Performed By: #### I NFLUAB #### [facility] [address] [place] [address] Dr. Ashlie Hills URINE T PROTEIN CREAT RATIOo n 03-03-2022 Protein (U) [Mass/Vol] 77.9 mg/dL Critically high <=12.0 [facility] Comment on above: Performed By: #### C VDAGS #### [facility] [address] [address] [address] Ashlie Hills UR PROT CREAT RAT 0.[address] [facility] Comment on above: Performed By: #### C VDAGS #### [facility] [id number] Ashlie Hills URINE CREAT 175.15 mg/dL Normal 20.00-300.00 [facility] Comment on above: Performed By: #### C VDAGS #### [facility] [address] [address] [address] 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 Smoker Adrenal mass 1 cm to 4 cm in diameter Other obstructive and reflux uropathy Tests Performed Urnls Dip Stick Auto w/o Microscopy POC 12154 CT Abdomen/Pelvis w/ Contrast -- Results Pending [...] A/P Where: [facility] [address], [facility] [place] [address]- [phone] Medications What How Much When Instructions Unchanged [...] Urnls Dip Stick Auto w/o Microscopy POC 38456 (02/06/2022) Bilirubin Urine Dipstick - Negative Blood Urine Dipstick - Negative Glucose Urine Dipstick - 2+ 500 mg/dl Ketones Urine Dipstick - Negative Leukocytes Urine Dipstick - Negative Nitrite Urine Dipstick - Negative Protein Urine Dipstick - 3+ (300 mg/dl) Specific [place] Urine Dipstick - >=1.030 Urine Appearance Urine [...] is caused (more content not included)... Normal [facility] Patient Educationon 02-07-20 Patient Education Obstetrics [...] Take ove (more content not included)... Normal [facility] Urology Office/Clinic Noteon 02-06-2022 Urology Office/Clinic [...] of protein. Recommended pt to see a binder cutter hand due to high protein levels in the urine. All questions/concerns were discussed. Pt to call office if she encounters any issues prior. Pt acknowledges understanding. Other obstructive and reflux uropathy (N13.8: Other obstructive and reflux uropathy) Follow-up With When Contact Information REGLA PHIPPS, GEMA Vicente In 6 months [facility] [address] [place] [address]- [phone] Additional Instructions: w/ repeat CT A/P Patient [...] flank pain (more content not included)... Normal [facility] Comment on above: Result Comment: Elec tronically Signed By: Elbert VARGAS MD\.br\Date and Time Signed: 02/06/22 11:45 EDT\.br\Electronically Co-Signed By: Enedelia Mendoza\.br\Date and Time Co-Signed: 02/06/22 11:42 EDT CULTURE URINEon 12-25-2021 CULTURE URINE Culture Observations: GREATER THAN TWO ORGANISMS PRESENT, HEAVILY MIXED. PLEASE RESUBMIT CLEAN CATCH MID-STREAM URINE IF CLINICALLY INDICATED. Normal [facility] Comment on above: Performed By: #### I NFLUAB #### [facility] [address] [place] [address] Dr. Ashlie Hills CBC AUTO DIFFon 12-24-2021 BASO # 0.1 103/ul Normal 0.0-0.1 [facility] Comment on above: Performed By: #### C BC #### [facility] [address] [place] [address] Dr. Ashlie Hills Basophils/100 WBC (Bld) 0.5 % Normal 0.2-2.0 [facility] Comment on above: Performed By: #### C BC #### [facility] [address] [place] [address] Dr. Ashlie Hills EO # 0.4 103/ul Normal 0.0-0.7 [facility] Comment on above: Performed By: #### C BC #### [facility] [address] [place] [address] Dr. Ashlie Hills Eosinophils/100 WBC (Bld) 2.4 % Normal 0.9-7.0 [facility] Comment on above: Performed By: #### C BC #### [facility] [address] [place] [address] Dr. Ashlie Hills Erythrocyte distribution width (RBC) [Ratio] 14.1 % Normal 11.0-15.0 [facility] [place] [facility] Comment on above: Performed By: #### C BC #### [facility] [address] [address] [address] Ashlie Hills Hematocrit (Bld) [Volume fraction] 55.9 % Critically high 36.0-48.0 [facility] Comment on above: Performed By: #### C BC #### [facility] [address] [place] [address] Dr. Ashlie Hills Hemoglobin (Bld) [Mass/Vol] 17.9 g/dL Critically high 12.0-16.0 [facility] Comment on above: Performed By: #### C BC #### [facility] [address] [place] [address] Dr. Ashlie Hills IG # 0.06 10e3/ul Critically high 0.00-0.[address] [facility] Comment on above: Performed By: #### C BC #### [facility] [address] [place] [address] Dr. Ashlie Hills IG % 0.4 % Normal 0.0-0.5 [facility] Comment on above: Performed By: #### C BC #### [facility] [address] [place] [address] Dr. Ashlie Hills LYMPH # 5.8 103/ul Critically high 1.2-3.8 [facility] Comment on above: Performed By: #### C BC #### [facility] [address] [place] [address] Dr. Ashlie Hills Lymphocytes/100 WBC (Bld) 35.4 % Normal 20.5-60.0 [facility] Comment on above: Performed By: #### C BC #### [facility] [address] [place] [address] Dr. Ashlie Hills MANUAL DIFF REQ NO Normal [facility] Comment on above: Performed By: #### C BC #### [facility] [address] [place] [address] Dr. Ashlie Hills MCH (RBC) [Entitic mass] 29.4 pg Normal 26.7-34.0 [facility] Comment on above: Performed By: #### C BC #### [facility] [address] [address] [address] Ashlie Hills MCHC (RBC) [Mass/Vol] 32.0 g/dL Normal 29.9-35.2 [facility] Comment on above: Performed By: #### C BC #### [facility] [address] [address] [address] Ashlie Hills MCV (RBC) [Entitic vol] 91.8 fL Normal 81.0-99.0 [facility] Comment on above: Performed By: #### C BC #### [facility] [address] [address] [address] Ashlie Hills MONO # 0.8 103/ul Normal 0.3-0.8 [facility] Comment on above: Performed By: #### C BC #### [facility] [address] [place] [address] Dr. Ashlie Hills Monocytes/100 WBC (Bld) 4.8 % Normal 1.7-12.0 [facility] Comment on above: Performed By: #### C BC #### [facility] [address] [address] [address] Ashlie Hills NEUT # 9.3 103/ul Critically high 1.4-6.5 [facility] Comment on above: Performed By: #### C BC #### [facility] [address] [address] [address] Ashlie Hills Neutrophils/100 WBC (Bld) 56.5 % Normal 43.0-75.0 [facility] Comment on above: Performed By: #### C BC #### [facility] [address] [address] [address] Ashlie Hills Platelet mean volume (Bld) [Entitic vol] 12.9 fL Normal 9.5-13.5 [facility] Comment on above: Performed By: #### C BC #### [facility] [address] [address] [address] Ashlie Hills PLT 127 103/ul Critically low 150-450 [facility] Comment on above: Performed By: #### C BC #### [facility] [address] [place], [place] [address] [address]. Ashlie Hills RBC 6.09 106/ul Critically high 4.20-5.40 [facility] Comment on above: Performed By: #### C BC #### [facility] [address] [place], [place] [address] Dr. Ashlie Hills WBC 16.4 103/ul Critically high 4.0-11.0 [facility] Comment on above: Performed By: #### C BC #### [facility] [address] [place], [place] [address] ABD/PELVIS WO CONon [...] Severe right hip degenerative change. Normal [facility] ER URINE PROFILEon 2 Bilirubin Ql (U) Negative Normal NEGATIVE [facility] Comment on above: Performed By: #### Tracey LYMAN ICRO #### [facility] [address] [place] [address] Dr. Ashlie Hills Clarity (U) CLEAR Normal CLEAR [facility] Comment on above: Performed By: #### Tracey LYMAN UMICRO #### [facility] [address] [place] [address] Dr. Ashlie Hills Color (U) DK. ORANGE Abnormal YELLOW [facility] Comment on above: Performed By: #### E NURA UMICRO #### [facility] [address] [place] [address] Dr. Ashlie Hills ERUAHD A micrscopic examination will be performed if indicated. Normal [facility] Comment on above: Performed By: #### E NURA UMICRO #### [facility] [address] [address] [address] Ashlie Hills Glucose Ql (U) 250 mg/dl Abnormal NEGATIVE [facility] Comment on above: Performed By: #### E JIMMYR, UMICRO #### [facility] [address] [place] [address] Dr. Ashlie Hills Hemoglobin Ql (U) Negative Normal NEGATIVE [facility] Comment on above: Performed By: #### MADELINE DIAZRO #### [facility] [address] [place] [address] Dr. Ashlie Hills Ketones Ql (U) Negative Normal NEGATIVE [facility] Comment on above: Performed By: #### MADELINE DIAZRO #### [facility] [address] [place] [address] Dr. Ashlie Hills LEUKOCYTES Negative Normal NEGATIVE [facility] Comment on above: Performed By: #### MADELINE DIAZRO #### [facility] [address] [place] [address] Dr. Ashlie Hills Nitrite Ql (U) Negative Normal NEGATIVE [facility] Comment on above: Performed By: #### MADELINE DIAZRO #### [facility] [address] [place] [address] Dr. Ashlie Hills pH (U) 5.0 [pH] Normal 5-9 [facility] Comment on above: Performed By: #### MADELINE DIAZRO #### [facility] [address] [place] [address] Dr. Ashlie Hills Protein (U) [Mass/Vol] 100 mg/dL Abnormal NEGATIVE/ TRACE [facility] Comment on above: Performed By: #### MADELINE DIAZRO #### [facility] [address] [place] [address] Dr. Ashlie Hills SPEC GRAVITY >=1.030 Abnormal 1.005-<=1.025 [facility] Comment on above: Performed By: #### MADELINE DIAZRO #### [facility] [address] [place] [address] Dr. Ashlie Hills UR MICRO IND INDICATED Normal [facility] Comment on above: Performed By: #### EVONNE DIAZ #### [facility] [address] [place] [address] Dr. Ashlie Hills Urobilinogen Qn (U) 1.0 {Little'U}/dL Normal 0.2 - 1. 0 [facility] Comment on above: Performed By: #### EVONNE DIAZ #### [facility] [address] [address] [address] Ashlie Hills PROF CHEM 8 (BAS METB)on Anion gap [Moles/Vol] 12.1 mmol/L Normal [facility] Comment on above: Performed By: #### I NFLUAB #### [facility] [address] [address] [address] Ashlie Hills Calcium [Mass/Vol] 9.0 mg/dL Normal 8.5-10.1 [facility] Comment on above: Performed By: #### I NFLUAB #### [facility] [address] [place] [address] Dr. Ashlie Hills Chloride [Moles/Vol] 101 mmol/L Normal 98-107 [facility] Comment on above: Performed By: #### I NFLUAB #### [facility] [address] [address] [address] Ashlie Hills CO2 [Moles/Vol] 29.1 mmol/L Normal 21.0-32.0 [facility] Comment on above: Performed By: #### I NFLUAB #### [facility] [address] [place] [address] Dr. Ashlie Hills Creatinine [Mass/Vol] 0.86 mg/dL Normal 0.55-1.02 [facility] Comment on above: Performed By: #### I NFLUAB #### [facility] [address] [place] [address] Dr. Ashlie Hills EGFR-AF BAHRAINI >60 Normal >=60 [facility] Comment on above: Performed By: #### I NFLUAB #### [facility] [address] [place] [address] Dr. Ashlie Hills EGFR-NON AF BAHRAINI >60 Normal >=60 [facility] Comment on above: Performed By: #### I NFLUAB #### [facility] [address] [address] [address] Ashlie Hills Glucose [Mass/Vol] 236 mg/dL Critically high 74-106 [facility] Comment on above: Performed By: #### I NFLUAB #### [facility] [address] [place] [address] Dr. Ashlie Hills Potassium [Moles/Vol] 4.2 mmol/L Normal 3.5-5.1 [facility] Comment on above: Performed By: #### I NFLUAB #### [facility] [address] [place] [address] Dr. Ashlie Hills Sodium [Moles/Vol] 138 mmol/L Normal 136-145 [facility] Comment on above: Performed By: #### I NFLUAB #### [facility] [address] [place] [address] Dr. Ashlie Hills Urea nitrogen [Mass/Vol] 11.0 mg/dL Normal 7.0-18.0 [facility] Comment on above: Performed By: #### I NFLUAB #### [facility] [address] [place] [address] Dr. Ashlie Hills Urea nitrogen/Creatinine [Mass ratio] 12.8 mg/mg Normal [facility] Comment on above: Performed By: #### I NFLUAB #### [facility] [address] [place] [address] Dr. Ashlie Hills URINE MICROSCOPIC ONLYon BACTERIA SMALL Abnormal NONE SEEN [facility] Comment on above: Performed By: #### Tracey LYMAN UMICRO #### [facility] [address] [place] [address] Dr. Ashlie Hills Bacteria identified Cx Nom (U) INDICATED Normal [facility] Comment on above: Performed By: #### Tracey LYMAN UMHARRIETRO #### [facility] [address] [place] [address] Dr. Ashlie Hills CAST NONE SEEN Normal NONE SEEN [facility] Comment on above: Performed By: #### MADELINE DIAZRO #### [facility] [address] [place] [address] Dr. Ashlie Hills Crystals LM Nom (Urine sed) NONE SEEN Normal NONE SEEN [facility] Comment on above: Performed By: #### E RUR, UMICRO #### [facility] [address] [place] [address] Dr. Ashile Hilsl Epithelial cells LM Ql (Urine sed) MODERATE Abnormal NONE SEEN /RARE [facility] Comment on above: Performed By: #### E RUR, UMICRO #### [facility] [address] [place] [address] Dr. Ashlie Hills MUCOUS NONE SEEN Normal NONE SEEN [facility] Comment on above: Performed By: #### E RUR, UMICRO #### [facility] [address] [place] [address] Dr. Ashlie Hills RBC 0-2 Normal 0-2 [facility] Comment on above: Performed By: #### E RUR, UMICRO #### [facility] [address] [place] [address] Dr. Ashlie Hills WBC 0-2 Abnormal NONE SEEN [facility] Comment on above: Performed By: #### E RUR, UMICRO #### [facility] [address] [place] [address] Dr. Ashlie Hills YEAST PRESENT Abnormal NONE SEEN [facility] Comment on above: Performed By: #### E RUR, UMICRO #### [facility] [address] [place] [address] Dr. Ashlie Hills HIP RIGHT 1 OR 2 VWS WITH PE LVISon 07-20-2020 HIP RIGHT 1 OR 2 VWS WITH PELVIS [facility] Department of Radiology [address] [place] [address] Patient Name: MITZI MACIAS : 1970 Sex: F Age: Race: White Pt. Location: Patient Status: O Ordered Date: 07/20/2020 1:45:00 PM Completed Date: 07/20/2020 01:57 PM Requesting Provider: LIZ EISENBERG Attending Provider: LIZ EISENBERG Report Copy To: WAN MCKAYLA Signs & Symptoms: M25.551 Pain in right hip I10 History: [place] Comments: evaluate Exam: HIP RIGHT 1 OR [...] MRI. Electronically signed: Pipo Acevedo. Transcribed by: [email or web address], User Resident: Electronically Signed by: PIPO ACEVEDO @ 07/20/2020 03:45 PM Normal [facility] Comment on above: Order Comment: evalu ate Vital Signs Date Time Vital Sign Value Performing Clinician Facility 03-08-2022 15:00-0400 Body height 170.18 cm Stephanie Tico Other [facility] Other 03-08-2022 15:00-0400 Body temperature 97.6 [degF] Stephanie Tico Other [facility] Other 03-08-2022 15:00-0400 Diastolic blood pressure 72 mm[Hg] Stephanie Tico Other [facility] Other 03-08-2022 15:00-0400 Respiratory rate 20 /min Stephanie Tico Other [facility] Other 03-08-2022 15:00-0400 SaO2% (BldA) [Mass fraction] 91 % Stephanie Tico Other [facility] Other 03-08-2022 15:00-0400 Systolic blood pressure 131 mm[Hg] Stephanie Tico Other [facility] Other 02-20-2022 09:20-0400 Body height 170.18 cm Stephanie Tico Other [facility] Other 02-20-2022 09:20-0400 Body temperature 96.5 [degF] Stephanie Tico Other [facility] Other 02-20-2022 09:20-0400 Diastolic blood pressure 69 mm[Hg] Stephanie Tico Other [facility] Other 02-20-2022 09:20-0400 Respiratory rate 20 /min Stephanie Tico Other [facility] Other 02-20-2022 09:20-0400 SaO2% (BldA) [Mass fraction] 91 % Stephanie Tico Other [facility] Other 02-20-2022 09:20-0400 Systolic blood pressure 129 mm[Hg] Stephanie Tico Other [facility] Other 02-06-2022 10:24-0400 Blood Pressure Location Elbert VARGAS [facility] 02-06-2022 10:24-0400 Diastolic blood pressure 76 mm[Hg] Elbert VARGAS [facility] 02-06-2022 10:24-0400 Heart rate 70 /min Elbert VARGAS [facility] 02-06-2022 10:24-0400 Respiratory rate 16 /min Elbert VARGAS [facility] 02-06-2022 10:24-0400 Systolic blood pressure 134 mm[Hg] Elbert VARGAS [facility] Encounters Encounter Date Encounter Type Care Provider Facility Start: 04-22-2024 ambulatory GAVIOTA Wilkerson ty:SHEA Villalobos Start: 11-15-2023 End: 11-15-2023 ambulatory MCKAYLA AICHHOLZ Not Available Start: 11-14-2023 End: 11-14-2023 ambulatory [facility] Start: 11-01-2023 End: 11-01-2023 ambulatory MCKAYLA AICHHOLZ Not Available Start: 09-27-2023 End: 09-27-2023 ambulatory MCKAYLA AICHHOLZ Not Available Start: 08-17-2023 Refill Mckayla Aichholz DIRECTOR CUSTOMER Work Phone: [facility] Comment on above: Vaginal yeast infect ion (Primary Dx) Start: 08-14-2023 Refill Mckayla Aichholz DIRECTOR CUSTOMER Work Phone: [facility] Comment on [...] Start: 11-15-2022 End: 11-16-2022 ambulatory GAVIOTA VEGA Facility:[facility] Start: 11-15-2022 End: 11-15-2022 Patient encounter procedure GAVIOTA VEGA [facility] Start: 10-05-2022 End: 10-05-2022 ambulatory MARIANO [...] BRODERICK Facility:[facility] Start: 07-06-2022 End: 07-06-2022 ambulatory BANQUET DIRECTOR MCKAYLA BLAS Facility:[facility] Start: 05-11-2022 End: 05-12-2022 ambulatory GIL VALENZUELA . Facility:[facility] Start: 04-25-2022 End: 04-25-[address] CHAPARRO MORTENSEN . Facility:[facility] Start: 04-20-2022 End: 04-21-2022 ambulatory GIL VALENZUELA . Facility:[facility] Start: 03-08-2022 End: 03-08-2022 ambulatory Stephanie Tico Other [facility] Other Start: 03-08-2022 Office outpatient vi sit 15 minutes Stephanie Tico [facility] Start: 03-03-2022 End: 03-04-2022 ambulatory BANQUET DIRECTOR MCKAYLA BLAS Facility:[facility] Start: 02-20-2022 End: 02-20-2022 ambulatory Stephanie Tico Other [facility] Other Start: 02-20-2022 Office outpatient ne w 45 minutes Stephanie Tico [facility] Start: 02-06-2022 ambulatory GAVIOTA VEGA Facility : [facility] Start: 02-06-2022 End: 02-07-2022 ambulatory MCKAYLA BLAS Facility:[facility] Start: 02-06-2022 End: 02-06-2022 Patient encounter procedure Elbert VARGAS [facility] [place] Start: 01-19-2022 End: 01-20-2022 ambulatory GIL VALENZUELA . Facility: Start: 01-05-2022 ambulatory GAVIOTA VEGA Facility :[facility] [place] Start: 12-24-2021 End: 12-24-2021 ambulatory OLE RAMIREZ Facility: Start: 08-26-2020 End: 09-10-2020 Patient encounter procedure MARY TAVERAS Facility:[facility] Start: 10-30-2019 End: 10-30-2019 Emergency department patient visit [facility] Start: 10-30-2019 End: 10-30-2019 Emergency department patient visit [facility] Emergency [facility] Start: 11-02-2016 Preoperative state Stephanie Tico Other [facility] Other Procedures Date Procedure Procedure Detail Performing Clinician Start: 11-22-2022 Mammography Mckayla clifford NP Work Phone: Start: 10-08-2015 Microscopic observat ion [Identifier] in Cervix by Cyto stain Mckayla Blas DIRECTOR CUSTOMER Work Phone: H/O: hysterectomy Elbert LARA Laparoscopic cholecystectomy Elbert VARGAS Operative procedure on foot Elbert VARGAS Plan of Treatment Date Care Activity Detail Author Start: 08-03-2025 Screening for malign ant neoplasm of colon [facility] Start: 11-24-2023 Urine screening for protein Diabetes: Urine Protein Screening [facility] Start: 11-23-2023 Screening for malign ant neoplasm of breast Mammogram [facility] Start: 10-15-2023 End: 10-15-2023 Patient encounter procedure 10/15/2023 4:30 PM EDT Office Visit [facility] [address] [place] [address] Mckayla Blas, SILVANO [address] [place] [id number] [facility] Start: 08-09-2023 Hemoglobin A1c measurement Diabetes: Hemoglobin A1C [facility] Start: 05-27-2021 Glaucoma screening Diabetes: R etinopathy Screening [facility] Start: 03-09-2020 Influenza vaccination Flu vacc ine (Season Ended) [place], [place] Start: 10-07-2018 Screening for malign ant neoplasm of cervix [facility] Start: 2010 Lipid panel Lipid screen [place], [place] Start: 2000 Screening for malign ant neoplasm of cervix HPV/Cotest [facility] Start: 1991 Screening for malign ant neoplasm of cervix Cervical cancer screen [place], [place] Start: 1989 DTaP/Tdap/Td vaccine (1 - Tdap) DTaP/Tdap/Td vaccine (1 - Tdap) [place] Start: 1985 HIV screening HIV screen [place], [place] Start: 1970 Medicare Annual Well ness (AWV) Medicare Annual Wellness (AWV) [facility] Start: 1970 Screening for malign ant neoplasm of colon [facility] Immunizations Immunization Date Immunization Notes Care Provider Judie lucas 05-18-2023 influenza, injectabl e, quadrivalent, contains preservative Mckayla Wan DIRECTOR CUSTOMER Work Phone: [facility] 07-19-2021 SARS-CoV-2 (COVID-19 ) mRNA BNT-162b2 vax GAVIOTA ZACARIAS [facility] 10-28-2020 SARS-CoV-2 (COVID-19 ) mRNA BNT-162b2 vax GAVIOTA ZACARIAS [facility] 10-08-2020 SARS-CoV-2 (COVID-19 ) mRNA BNT-407b2 vax LoungeUp [facility] Payers Date Payer Category Payer Medicare [id number] 2023 Private Health Insurance [id number] 2018 Medicaid [facility] [id number] 2018-Present [phone] [address] [place] [address] Medicaid [id number] 2017 Medicare [employer] E MEDICARE UHC DUAL COMPLETE [id number] 2017-Present [address] [place] [address] [id number]. [id number] 1970 Unknown [id number] 2.16.840.1.786536.3.579.2. 647 1970 Unknown [id number] 2.16.840.1.890833.3.579.2. 727 1970 Unknown [id number] 2.16.840.1.805148.3.579.2. 727 1970 Unknown [id number] 2.16.840.1.864539.3.579.2. 727 1970 Unknown [id number] 2.16.840.1.582022.3.579.2. 727 1970 Unknown [id number] 2.16.840.1.666190.3.579.2. 593 1970 Unknown [id number] 2.16.840.1.305702.3.579.2. 593 1970 Unknown [id number] 2.16.840.1.925845.3.579.2. 593 1970 Unknown [id number] 2.16.840.1.363053.3.579.2. 593 1970 Unknown [id number] 2.16.840.1.640773.3.579.2. 593 1970 Unknown [id number] 2.16.840.1.236146.3.579.2. 593 1970 Unknown [id number] 2.16.840.1.538782.3.579.2. 593 1970 Unknown [id number] 2.16.840.1.360960.3.579.2. 593 1970 Unknown [id number] 2.16.840.1.552252.3.579.2. 593 1970 Unknown [id number] 2.16.840.1.023546.3.579.2. 593 1970 Unknown [id number] 2.16.840.1.159990.3.579.2. 593 1970 Unknown [id number] 2.16.840.1.689416.3.579.2. 593 1970 Unknown [id number] 2.16.840.1.198984.3.579.2. 593 1970 Unknown [id number] 2.16.840.1.007869.3.579.2. 593 1970 Unknown [id number] 2.16.840.1.095555.3.579.2. 593 1970 Unknown [id number] 2.16.840.1.865127.3.579.2. 593 1970 Unknown [id number] 2.16840.1.495553.3.579.2. 593 1970 Unknown [id number] 2.16840.1.728138.3.579.2. 593 1970 Unknown [id number] 2.16840.1.171192.3.579.2. 593 1970 Unknown [id number] 2.840.1.873275.3.579.2. 593 1970 Unknown [id number] .840.1.126900.3.579.2. 593 1970 Unknown [id number] .840.1.240880.3.579.2. 593 1970 Unknown [id number] 2.16840.1.035851.3.579.2. 1259 1970 Unknown [id number] 2.16840.1.949319.3.579.2. 1259 1970 Unknown [id number] .840.1.953651.3.579.2. 1259 1970 Unknown [id number] 2.840.1.151910.3.579.2. 1259 1959 Medicaid [id number] 1959 Private Health Insurance [id number] 1959 Unknown [id number] 2.840.1.929784.19 Social History Date Type Detail Facility Start: 02-17-2014 End: 07-10-2023 Tobacco smoking status NJIS Current every day smoker [place], [place] Start: 02-17-1994 History of tobacco use Cigarette Smo ker [place] Start: 02-17-2014 End: 07-10-2023 Cigarettes smoked current (pack per day) - Reported [place] Start: 02-17-2014 Alcohol intake Current drinke r of alcohol (finding) [place] Start: 02-17-2014 Alcohol Comment Rare [place] Start: 1970 Sex Assigned At Not on file [place], [place] Exposure to SARS-CoV -2 (event) Unable to assess [place] Start: 02-06-2022 Tobacco smoking status Smoker (findi ng) [facility] Start: 07-10-2023 Sex Assigned At Female [facility] Start: 11-15-2022 Tobacco smoking status Heavy t obacco smoker (finding) [facility] Start: 07-10-2023 Tobacco use and exposure Smoke less tobacco non-user [facility] Start: 07-10-2023 Alcohol intake Lifetime non-d adrien (finding) [facility] Within the last year , have you been afraid of your partner or ex-partner? No [facility] Do you belong to any clubs or organizations such as evangelical groups, unions, fraternal or athletic groups, or [...] (one) time each day. Use as instructed [id number] Functional Status Date Assessment Result Facility 11-15-2022 Functional Status N/A [facility] 02-06-2022 Functional Status N/A [facility] Clinical Notes 01-19-2022 to 11-14-2023 Note Date & Type Note Facility 11-14-2023 Note [facility] Subjective Mitzi Macias is a 53 y.o. year old female being seen as new patient to establish care. Ref from Mckayla Blas CNP for pulmonary hypertension. She had echo in Aug 2023 while inpatient at [facility] for pneumonia and COPD exacerbation. Denies [...] was admitted in early 2023 to the [facility] with hypoxemia and treated as COPD exacerbation. [...] wheelchair Skin: Gene (more content not included)... [facility] 11-15-2022 Hospital Discharg e instructions Patient [...] include: ?8 oz (237 mL) of milk, brxgtox-dayfjwmhpzcg-lictq milk, and calcium-fortifiedfruit juice. Calcium-fortified means that [...] ?Spinach (cooked), rhubarb, beets, sweet potatoes, and [place] chard. ?Peanuts. ?Potato chips, faroese fries, and baked potatoes with skin on. ?Nuts and nut products. ?Chocolate. If you regularly take a diuretic medicine, make sure to eat at least 1 or 2 servings of fruits or vegetables that are high in potassium each day. These include: ?Avocado. ?Banana. ?[place], prune, carrot, or tomato juice. ?Baked potato. [...] magnesium, fish oil, or vitamin B6. Take josj-twi-exvnswb and prescription medicines only as told by [...] Casseroles. Pizza. Lasagna. Frozen meals. Potato chips. Swiss fries. The items listed above may not [...] provider. Document Revised: 03/06/2022 Document Reviewed: 03/06/2022 [employer] Patient Education 2022 Mandae. Follow Up Care 02/06/2022 11:44:09 With:GAVIOTA VEGA PA-C, URL Address: [address] [place] [address] When: Unknown [facility] 08-24-2022 Note CONSULTATION CONSULTATION DATE: 08/24/2022 [...] We maintain her on pain medication with [place] 5/325 t.i.d., diclofenac 75 mg b.i.d. Her [...] her at this point. A refill for [place] 5/325 t.i.d. and diclofenac 75 mg b.i.d. will be sent to the pharmacy. Vitamin compliance and nutrition were discussed and enforced. I did highly encourage her to use exercise bands to increase the strength in her lower extremities. We will see her in three months' time, unless otherwise indicated, and patient agrees. [facility] 05-11-2022 Note CONSULTATION CONSULTATION DATE: 05/11/2022 [...] 150. Medications include Lyrica 300 mg b.i.d., [place] 5/325 t.i.d., diclofenac 75 mg b.i.d. and [...] her medications today. We will maintain Lyrica, [place] and diclofenac at the set dose and frequency. We will follow-up in the clinic in three months' time. The patient is in agreement to this. Vitamin importance and nutrition were discussed. [facility] 04-20-2022 Note CONSULTATION CONSULTATION DATE: 04/20/2022 [...] medications include Tylenol, Lyrica 300 mg b.i.d., [place] 5/325 t.i.d., amitriptyline, diclofenac and duloxetine. Patient's [...] be followed up in the clinic. [facility] 03-08-2022 Evaluation note Encounter Date Diagnosis [...] to the DANIEL. Thrombocytopenia is unclear etiology. [facility] Other 08-15-2022 Evaluation note* Encounter Date Diagnosis [...] follow with Dr. Souza and Dr. Vargas. [facility] Other 08-01-2022 Hospital Discharge instructions Patient Education [...] fried and sweet foods. General instructions Take eaxd-oee-trmzqrg and prescription medicines only as told by [...] 04/21/2010 Document Revised: 10/16/2019 Document Reviewed: 07/11/2018 [employer] Patient Education 2020 Mandae. Follow Up Care 01/05/2022 12:02:03 With:REGLA PHIPPS, Elbert Joya, URL Address: [facility] [address] [place] [address] [phone] When:Within 6 Month(s) Comments:w/ repeat CT A/P [facility] 07-14-2022 NoteCONSULTATION PROCEDURE DATE: 01/19/2022 PRE [...] pattern and the patient tolerated it well. [facility] Signed and Approved by: GIL VALENZUELA . 01/27/2022 14:15:00[place] [id number] NoteCONSULTATION CONSULTATION DATE: 01/19/2022 This is a [...] today. Medications include Lyrica 300 mg b.i.d., [place] 5/325 t.i.d., diclofenac 75 mg b.i.d. and [...] in three months' time unless otherwise indicated. [facility] Signed and Approved by: GIL VALENZUELA . 01/27/2022 14:15:00[facility] [place] [facility] Future Appointments Appointment Date:08/14/2022 09:15:00 AM Scheduled Provider:Elbert VARGAS MD Location:[facility] Appointment Type:URO Office Visit [facility] evaluation + Plan note Future Appointments Appointment Date:04/22/2024 10:00:00 AM Scheduled Provider:GAVIOTA VEGA PA-C Location:[facility] Appointment Type:URO Office Visit [facility] evalkkzuev note* Diagnosis Type 2 diabetes mellitus with unspecified complications (CMS/[facility]) Edema, unspecified Edema documented in this encounter [...] History sepsis 2010 Hospitalization History SEE ABOVE [facility] Other Hospital course Narrative No data available for this section [facility] progress note No data available for this section [facility] reason for referral (narrative) , Referral to Dr. 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 Advance Directives and Living Will Power of Entertainer & Comic Summary Purpose Family History No Family History Records FoundNo Family History Records FoundNo Family History Records FoundNo Family History Records FoundNo Family History Records FoundNo Family History Records Found Additional Source Comments INFORMATION SOURCE (unrecogn ized section and content) DATE CREATED AUTHOR 10/30/2019 [facility] DATE CREATED AUTHOR AUTHOR'S ORGANIZ ATION 09/15/2020 [facility] DATE CREATED AUTHOR AUTHOR'S ORGANIZ ATION 11/16/2022 [facility] DATE CREATED AUTHOR AUTHOR'S ORGANIZ ATION 12/19/2022 [facility] [place] [facility] DATE CREATED AUTHOR AUTHOR'S ORGANIZ ATION 11/16/2023 [facility] DATE CREATED AUTHOR AUTHOR'S ORGANIZ ATION 11/17/2023 [facility] dical Specialists EPIC Care Team (unrecognized sect ion and content) Manager Integrated Relationship Specialty Start Date End Date Ty Amin MD PCP - General Family Medicine 01/05/23 Manager Integrated Relationship Specialty Start Date End Date Ty [...] BE BASED ON THE PRIMARY CLINICAL RECORDS. [employer] provides no warranty or guarantee of the accuracy or completeness of information in this document.
== END 2023-12-13 10:13 | disposition home or self-care (01) ==
LOC: MAMMO 10:12
PROVIDERS: PCP Nurse Practitioner; Visit Provider Nurse Practitioner
DX: Z12.31 Encounter for screening mammogram for malignant neoplasm of breast (principal); Z80.41 Family history of malignant neoplasm of ovary; Z80.8 Family history of malignant neoplasm of other organs or systems
CPT/HCPCS: 77063; 77067

== ENCOUNTER 2024-01-03 13:54 | Outpatient (OUT) | payer MEDICARE, OTHER, SELFPAY ==
--- OUTSIDE RECORDS SUMMARY | 2024-01-03 14:01 | XMS_ITS ---
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 Name Role Phone James Benavidez Primary Care Provider JAMES BENAVIDEZ Primary Care Unavailable SHENDGE, VITHAL Admitting Unavailable SHENDGE, VITHAL Attending Unavailable AICHHOLZ, MCKAYLA Primary Care Unavailable AICHHOLZ, MCKAYLA Referring Unavailable AICHRAVIZ, MCKAYLA J Primary Care Physician [phone] Tico, Stephanie Unavailable GAVIOTA ADAMES Attending Unavailable GAVIOTA ADAMES Attending Unavailable MANNIE, MCKAYLA Krystal Referring Unavailable Elbert ARAUZ Attending Unavailable OLE RAMIREZ Attending Unavailable OLE RAMIREZ Consulting Unavailable AICHHOLZ, FINANCIAL REPORT SERVICE SALES AGENT MCKAYLA Primary Care Unavailable OLE RAMIREZ Admitting Unavailable ANTONY SHRESTHA Consulting Unavailable ALONDRA ., UMBERTO Admitting Unavailable ALONDRA .UMBERTO Attending Unavailable AICHHOLZ, FINANCIAL REPORT SERVICE SALES AGENT MCKAYLA Primary Care Unavailable AFSANEH Loera, DR BOLANOS Consulting Unavailable MARYANNE POWER Consulting Unavailable GLENN KERR Consulting Unavailable YOMAIRA KERR Consulting Unavailable HATTIE GOFF Consulting Unavailable ALONDRA .UMBERTO Consulting Unavailable TICO, STEPHANIE Attending Unavailable TICO, STEPHANIE Consulting Unavailable AICHHOLZ, FINANCIAL REPORT SERVICE SALES AGENT MCKAYLA Primary Care Unavailable TICO, STEPHANIE Admitting Unavailable REGLA Loera, DR DUMONT Admitting Unavailable AICHHOLZ, FINANCIAL REPORT SERVICE SALES AGENT MCKAYLA Primary Care Unavailable REGLA Loera, DR DUMONT Attending Unavailable REGLA Loera, DR DUMONT Consulting Unavailable COLLIN HUERTAS Consulting Unavailable CECILIA KAUFMAN Admitting Unavailable CECILIA KAUFMAN Attending Unavailable AICHHOLZ, FINANCIAL REPORT SERVICE SALES AGENT MCKAYLA Primary Care Unavailable RAFAEL GONGORA Attending Unavailable RAFAEL GONGORA Admitting Unavailable AICHHOLZ, FINANCIAL REPORT SERVICE SALES AGENT MCKAYLA Primary Care Unavailable AICHHOLZ, FINANCIAL REPORT SERVICE SALES AGENT MCKAYLA Admitting Unavailable AICHHOLZ, FINANCIAL REPORT SERVICE SALES AGENT MCKAYLA Primary Care Unavailable AICHHOLZ, FINANCIAL REPORT SERVICE SALES AGENT MCKAYLA Attending Unavailable AICHHOLZ, FINANCIAL REPORT SERVICE SALES AGENT MCKAYLA Consulting Unavailable LAKSHMIPATHY ., NARENDRANATH Attending Anette vailable LAKSHMIPATHY ., NARENDRANATH Consulting Anette vailable LAKSHMIPATHY ., NARENDRANATH Admitting Anette vailable AICHHOLZ, FINANCIAL REPORT SERVICE SALES AGENT MCKAYLA Primary Care Unavailable VALENZUELA ., GIL Consulting Unavailable MORTENSEN ., DR CHAPARRO Aguillon Attending Unavailable MORTENSEN ., DR CHAPARRO Aguillon Admitting Unavailable AICHHOLZ, FINANCIAL REPORT SERVICE SALES AGENT MCKAYLA Primary Care Unavailable VALENZUELA ., GIL Consulting Unavailable MORTENSEN ., DR CHAPARRO Aguillon Admitting Unavailable AICHHOLZ, FINANCIAL REPORT SERVICE SALES AGENT MCKAYLA Primary Care Unavailable MORTENSEN ., DR CHAPARRO Aguillon Attending Unavailable HALKER ., SUBHASH Consulting Unavailable LAKSHMIPATHY ., NARENDRANATH Admitting Anette vailable LAKSHMIPATHY ., NARENDRANATH Attending Anette vailable AICHHOLZ, FINANCIAL REPORT SERVICE SALES AGENT MCKAYLA Primary Care Unavailable MORTENSEN ., DR CHAPARRO Aguillon Attending Unavailable MORTENSEN ., DR CHAPARRO Aguillon Admitting Unavailable VALENZUELA ., GIL Consulting Unavailable AICHHOLZ, FINANCIAL REPORT SERVICE SALES AGENT MCKAYLA Primary Care Unavailable VALENZUELA ., GIL Consulting Unavailable MORTENSEN ., DR CHAPARRO Aguillon Attending Unavailable MORTENSEN ., DR CHAPARRO Aguillon Admitting Unavailable AICHHOLZ, FINANCIAL REPORT SERVICE SALES AGENT MCKAYLA Primary Care Unavailable HATTIE BORDERICK Attending Unavailable HATTIE BRODERICK Admitting Unavailable AICHHOLZ, FINANCIAL REPORT SERVICE SALES AGENT MCKAYLA Primary Care Unavailable AICHHOLZ, FINANCIAL REPORT SERVICE SALES AGENT MCKAYLA Admitting Unavailable AICHHOLZ, FINANCIAL REPORT SERVICE SALES AGENT MCKAYLA Consulting Unavailable AICHHOLZ, FINANCIAL REPORT SERVICE SALES AGENT MCKAYLA Primary Care Unavailable AICHHOLZ, FINANCIAL REPORT SERVICE SALES AGENT MCKAYLA Attending Unavailable AICHHOLZ, FINANCIAL REPORT SERVICE SALES AGENT MCKAYLA Primary Care Unavailable MISC, DR LESLIE Admitting Unavailable MISC, DR LESLIE Attending Unavailable MISC, DR LESLIE Consulting Unavailable DIAB ., MARIANO Admitting Unavailable DIAB ., MARIANO Attending Unavailable DIAB ., MARIANO Consulting Unavailable AICHHOLZ, FINANCIAL REPORT SERVICE SALES AGENT MCKAYLA Primary Care Unavailable RICCO PICKARD Consulting Unavailable AICHHOLZ, FINANCIAL REPORT SERVICE SALES AGENT MCKAYLA Admitting Unavailable AICHHOLZ, FINANCIAL REPORT SERVICE SALES AGENT MCKAYLA Primary Care Unavailable AICHHOLZ, FINANCIAL REPORT SERVICE SALES AGENT MCKAYLA Attending Unavailable AICHHOLZ, FINANCIAL REPORT SERVICE SALES AGENT MCKAYLA Consulting Unavailable DR PATRICIA VELOZ Consulting Unavailable CECILIA KAUFMAN Attending Unavailable CECILIA KAUFMAN Admitting Unavailable ZIEBER, DR PATRICIA Joya Consulting Unavailable AICHHOLZ, FINANCIAL REPORT SERVICE SALES AGENT MCKAYLA Primary Care Unavailable MELISSA .CECILIA Consulting Unavailable FESTUS ., DR CHAPARRO Aguillon Attending Unavailable FESTUS ., DR CHAPARRO Aguillon Consulting Unavailable MORTENSEN ., DR CHAPARRO Aguillon Admitting Unavailable AICHHOLZ, FINANCIAL REPORT SERVICE SALES AGENT MCKAYLA Primary Care Unavailable MEGGAN, HATTIE Ramsey Attending Unavailable MEGGAN, HATTIE Ramsey Consulting Unavailable HIGHLBANDAR, HATTIE Ramsey Admitting Unavailable AICHHOLZ, FINANCIAL REPORT SERVICE SALES AGENT MCKAYLA Primary Care Unavailable HATTIE BAUTISTA Consulting Unavailable AICHHOLZ, FINANCIAL REPORT SERVICE SALES AGENT MCKAYLA Admitting Unavailable AICHHOLZ, FINANCIAL REPORT SERVICE SALES AGENT MCKAYLA Attending Unavailable AICHHOLZ, FINANCIAL REPORT SERVICE SALES AGENT MCKAYLA Consulting Unavailable AICHHOLZ, FINANCIAL REPORT SERVICE SALES AGENT MCKAYLA Primary Care Unavailable Ty Amin MD Primary Care Provider BHARAT AGUILAR Attending Unavailable AICHHOLZ, MCKAYLA Attending Unavailable AICHHOLZ, MCKAYLA Attending Unavailable AICHHOLZ, MCKAYLA Attending Unavailable AICHHOLZ, MCKAYLA Attending Unavailable Allergies Allergy Classification Reported Allergen(s) Allergy Type Date of Onset Reaction(s) Facility (1 source) No Known Medication Allergies; 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: [No Known Medication Allergies] Propensity to adverse reactions (disorder) [facility] Repository Encounters Encounter Date Encounter Type Care Provider Facility Start: 04-22-2024 ambulatory GAVIOTA Wilkerson ty:SHEA Villalobos Start: 11-15-2023 End: 11-15-2023 ambulatory MCKAYLA AICHHOLZ Not Available Start: 11-14-2023 End: 11-14-2023 ambulatory BHARAT [facility] Start: 11-01-2023 End: 11-01-2023 ambulatory MCKAYLA AICHHOLZ Not Available Start: 09-27-2023 End: 09-27-2023 ambulatory MCKAYLA AICHHOLZ Not Available Start: 08-17-2023 Refill Mckayla Aichholz CORE DRILLING SUPERVISOR Work Phone: [facility] Comment on above: Vaginal yeast infect ion (Primary Dx) Start: 08-14-2023 Refill Mckayla Aichholz CORE DRILLING SUPERVISOR Work Phone: [facility] Comment on above: Type 2 diabetes asiya itus with unspecified complications ([facility] Edema, unspecified; Edema Start: 07-10-2023 End: 07-10-2023 ambulatory MCKAYLA BLAS Not Available Start: 12-05-2022 ambulatory MATEUSZ MAKIY . Facility:[facility] Start: 12-05-2022 End: 12-06-2022 Evaluation and management of inpatient UMBERTO CANTU . Facility:[facility] Start: 11-23-2022 End: 11-23-2022 ambulatory SAYDA BLAS Facility:[facility] Start: 11-22-2022 End: 11-23-2022 ambulatory SAYDA BLAS Facility:[facility] Start: 11-17-2022 End: 11-18-2022 ambulatory SUBHASH GASPAR . Facility:[facility] Start: 11-15-2022 End: 11-16-2022 ambulatory GAVIOTA ADAMES Facility:[facility] Start: 11-15-2022 End: 11-15-2022 Patient encounter procedure GAVIOTA ADAMES [facility] Start: 10-05-2022 End: 10-05-2022 ambulatory MARIANO DIAB . Facility:[facility] Start: 09-21-2022 End: 09-21-2022 ambulatory SAYDA BLAS Facility:[facility] Start: 09-14-2022 ambulatory RAFAEL Ribera y:[facility] Start: 08-24-2022 End: [address] CHAPARRO MORTENSEN . Facility:[facility] Start: 08-21-2022 End: 08-22-2022 ambulatory HATTIE BRODERICK Facility:[facility] Start: 07-27-2022 End: 07-28-2022 ambulatory CECILIA TORRES . Facility:[facility] Start: 07-18-2022 End: 07-19-2022 ambulatory CECILIA TORRES . Facility:[facility] Start: 07-18-2022 End: 07-19-2022 [facility] Start: 07-06-2022 End: 07-06-2022 ambulatory FINANCIAL REPORT SERVICE SALES AGENT MCKAYLA BLAS Facility:[facility] Start: 05-11-2022 End: 05-12-2022 ambulatory GIL VALENZUELA . Facility:[facility] Start: 04-25-2022 End: 04-25-[address] CHAPARRO MORTENSEN . Facility:[facility] Start: 04-20-2022 End: 04-21-2022 ambulatory GIL VALENZUELA . Facility:[facility] Start: 03-08-2022 End: 03-08-2022 ambulatory Stephanie Tico Other [employer] Other Start: 03-08-2022 Office outpatient vi sit 15 minutes Stephanie Tico [facility] Start: 03-03-2022 End: 03-04-2022 ambulatory FINANCIAL REPORT SERVICE SALES AGENT MCKAYLA BLAS Facility:[facility] Start: 02-20-2022 End: 02-20-2022 ambulatory Stephanie Tico Other [employer] Other Start: 02-20-2022 Office outpatient ne w 45 minutes Stephanie Tico [facility] Start: 02-06-2022 ambulatory GAVIOTA ADAMES Facility :[facility] Start: 02-06-2022 End: 02-07-2022 ambulatory MCKAYLA BLAS Facility:[facility] Start: 02-06-2022 End: 02-06-2022 Patient encounter procedure Elbert ARAUZ [facility] Start: 01-19-2022 End: 01-20-2022 ambulatory GIL VALENZUELA . Facility:[facility] Start: 01-05-2022 ambulatory GAVIOTA ADAMES Facility :[facility] Start: 12-24-2021 End: 12-24-2021 ambulatory OLE RAMIREZ Facility: Start: 08-26-2020 End: 09-10-2020 Patient encounter procedure MARY TAVERAS Facility:[facility] Start: 10-30-2019 End: 10-30-2019 Emergency department patient visit JAMES Reis [facility] Start: 10-30-2019 End: 10-30-2019 Emergency department patient visit James Benavidez [facility] Emergency Department Start: 11-02-2016 Preoperative state Stephanie Tico Other [employer] Other Medical Equipment Procedure Code Equipment Code Equipment Original Text Equi pment Identifier Dates Inject 5 each un robson the skin 1 (one) time each day. Use as instructed [id number] Immunizations Immunization Date Immunization Notes Care Provider Judie waldrop 05-18-2023 influenza, injectabl e, quadrivalent, contains preservative Mckayla Blas CORE DRILLING SUPERVISOR Work Phone: [facility] 07-19-2021 SARS-CoV-2 (COVID-19 ) mRNA BNT-162b2 [employer] - Share Your Passion!x [employer] [facility] 10-28-2020 SARS-CoV-2 (COVID-19 ) mRNA BNT-162b2 Space [employer] [facility] 10-08-2020 SARS-CoV-2 (COVID-19 ) mRNA [id number] [employer] [facility] Medications Current Medications Medication Drug Class(es) Dates Sig (Normalized) Sig (Original) acetaminophen 325 mg / HYDROcodone bitartrate 5 mg oral tablet (6 sources) Opioid Agonist Start: 02-06-2022 acetaminophen-hydr ocodone 325 mg-5 mg oral tablet Refill(s) 0 Start Date: 02/06/22 Status: Ordered HYDROcodone-acet aminophen (Lake) 5-325 MG tablet 1 tablet 3 (three) times a day as needed for severe pain. 0 Active take 1 tablet by [facility] twice daily as needed Lake 5-325 MG 1 tablet as needed Orally [...] every week ergocalciferol (Vitamin D-2) 1.25 MG (03417 UT) capsule Take 1.25 mg by mouth [...] and 1 application before bedtime. 0 Active Payers Date Payer Category Payer Medicare [id number] 2023 Private Health Insurance [id number] 2018 Medicaid MEDICAID [facility] [id number] 2018-Present [phone] [address] [place] [address] Medicaid [id number] 2017 Medicare [employer] MEDICARE UHC DUAL COMPLETE [id number] 2017-Present [address] [place] [address] [id number] 1970 Unknown [id number] 2.16.840.1.428070.3.579.2. 647 1970 Unknown [id number] 2.16.840.1.655709.3.579.2. 727 1970 Unknown [id number] 2.16.840.1.487489.3.579.2. 727 1970 Unknown [id number] 2.16.840.1.245400.3.579.2. 727 1970 Unknown [id number] 2.16.840.1.759952.3.579.2. 727 1970 Unknown [id number] 2.16.840.1.453902.3.579.2. 593 1970 Unknown [id number] 2.16.840.1.442242.3.579.2. 593 1970 Unknown [id number] 2.16.840.1.692123.3.579.2. 593 1970 Unknown [id number] 2.16.840.1.665655.3.579.2. 593 1970 Unknown [id number] 2.16.840.1.343656.3.579.2. 593 1970 Unknown [id number] 2.16.840.1.691761.3.579.2. 593 1970 Unknown [id number] 2.16.840.1.267408.3.579.2. 593 1970 Unknown [id number] 2.16.840.1.762777.3.579.2. 593 1970 Unknown [id number] 2.16.840.1.102320.3.579.2. 593 1970 Unknown [id number] 2.16.840.1.633109.3.579.2. 593 1970 Unknown [id number] 2.16.840.1.995538.3.579.2. 593 1970 Unknown [id number] 2.16.840.1.369760.3.579.2. 593 1970 Unknown [id number] 2.16.840.1.271658.3.579.2. 593 1970 Unknown [id number] 2.16.840.1.185860.3.579.2. 593 1970 Unknown [id number] 2.16.840.1.269493.3.579.2. 593 1970 Unknown [id number] 2.16.840.1.904473.3.579.2. 593 1970 Unknown [id number] 2.16.840.1.403067.3.579.2. 593 1970 Unknown [id number] 2.16.840.1.067744.3.579.2. 593 1970 Unknown [id number] 2.16.840.1.665336.3.579.2. 593 1970 Unknown [id number] 2.16.840.1.858489.3.579.2. 593 1970 Unknown [id number] 2.16.840.1.491945.3.579.2. 593 1970 Unknown [id number] 2.16.840.1.551760.3.579.2. 593 1970 Unknown [id number] 2.16.840.1.733802.3.579.2. 1259 1970 Unknown [id number] 2.16.840.1.029960.3.579.2. 1259 1970 Unknown [id number] 2.16.840.1.687698.3.579.2. 1259 1970 Unknown [id number] 2.16.840.1.558622.3.579.2. 1259 1959 Medicaid [id number] 1959 Private Health Insurance [id number] 1959 Unknown [id number] 2.16.840.1.533533.19 Plan of Treatment Date Care Activity Detail Author Start: 08-03-2025 Screening for malign ant neoplasm of colon [facility] Start: 11-24-2023 Urine screening for protein Diabetes: Urine Protein Screening [facility] Start: 11-23-2023 Screening for malign ant neoplasm of breast Mammogram [facility] Start: 10-15-2023 End: 10-15-2023 Patient encounter procedure 10/15/2023 4:30 PM EDT Office Visit [facility] [address] [place] [address] Mckayla Blas, SILVANO [address] [place] [address] [facility] Start: 08-09-2023 Hemoglobin A1c measurement Diabetes: Hemoglobin A1C [facility] Start: 05-27-2021 Glaucoma screening Diabetes: R etinopathy Screening [facility] Start: 03-09-2020 Influenza vaccination Flu vacc ine (Season Ended) [place], [place] Start: 10-07-2018 Screening for malign ant neoplasm of cervix [facility] Start: 2010 Lipid panel Lipid screen [place], [place] Start: 2000 Screening for malign ant neoplasm of cervix HPV/Cotest [facility] Start: 1991 Screening for malign ant neoplasm of cervix Cervical cancer screen [place], [place] Start: 1989 DTaP/Tdap/Td vaccine (1 - Tdap) DTaP/Tdap/Td vaccine (1 - Tdap) [place] Start: 1985 HIV screening HIV screen [place], [place] Start: 1970 Medicare Annual Well ness (AWV) Medicare Annual Wellness (AWV) [facility] Start: 1970 Screening for malign ant neoplasm of colon [facility] Problems Active Problems Problem Classification Problem Date [...] 02-06-2022 Chronic Other aftercare (1 source) Other intermediate manager (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 therapy; 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: [OTH CLOTH GRADER SUPERVISOR CURRENT DRUG THERAPY] Onset: 12-05-2022 Episodic Other aftercare (1 source) shelter (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; 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: [CUSTODIAL CURRENT USE OF ASPIRIN] Onset: 12-05-2022 Episodic Other aftercare (1 source) shelter (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; 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: [CUSTODIAL CURRENT USE OF INSULIN] Onset: 12-05-2022 Episodic [...] ocumentation in Social History. Unclassified (1 source) CLOTH GRADER SUPERVISOR INJECT NONINSULN ANTIDIAB; 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: [CUSTODIAL INJECT NONINSULN ANTIDIAB] Onset: 12-05-2022 Unclassified (3 [...] 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: [LOW BACK PAIN, UNSPECIFIED] Onset: 12-24-2021 Procedures Date Procedure Procedure Detail Performing Clinician Start: 11-22-2022 Mammography Mckayla clifford CORE DRILLING SUPERVISOR Work Phone: Start: 10-08-2015 Microscopic observat ion [Identifier] in Cervix by Cyto stain Mckayla Blas NP Work Phone: H/O: hysterectomy Elbert LARA Laparoscopic cholecystectomy Elbert ARAUZ Operative procedure on foot Elbert ARAUZ Results Test Name Value Interpretation Reference Range Facility Office Visiton 11-14-2023 Follow-up visit [id number] Mitzi Macias 1970 F Date Provider Department Center 11/14/2023 GuyANN-MARIEEZEQUIELBHARAT SANTIAGO [facility] Family History Problem Relation Age of Onset Heart attack Paternal Grandmother Family Status - Relation Status Age at Paternal Grandmother Level of Service:41600 [place] OFFICE/OUTPATIENT NEW LOW MDM 30 MINUTES Normal [facility] CBC AUTO DIFFon 12-06-2022 BASO # 0.0 103/ul Normal 0.0-0.1 [facility] Comment on above: Performed By: #### C BC #### [facility] [address] [address] [address] Ashlie Hills Basophils/100 WBC (Bld) 0.1 % Critically low 0.2-2.0 [facility] Comment on above: Performed By: #### C BC #### [facility] [address] [address] [address] Ashlie Hills EO # 0.0 103/ul Normal 0.0-0.7 [facility] Comment on above: Performed By: #### C BC #### [facility] [address] [address] [address] Ashlie Hills Eosinophils/100 WBC (Bld) 0.0 % Critically low 0.9-7.0 [facility] Comment on above: Performed By: #### C BC #### [facility] [address] [address] [address] Ashlie Hills Erythrocyte distribution width (RBC) [Ratio] 14.9 % Normal 11.0-15.0 [facility] Comment on above: Performed By: #### C BC #### [facility] [address] [place] [address] Dr. Ashlie Hills Hematocrit (Bld) [Volume fraction] 46.2 % Normal 36.0-48.0 [facility] Comment on above: Performed By: #### C BC #### [facility] [address] [address] [address] Ashlie Hills Hemoglobin (Bld) [Mass/Vol] 14.7 g/dL Normal 12.0-16.0 [facility] Comment on above: Performed By: #### C BC #### [facility] [address] [address] [address] Ashlie Hills IG # 0.06 10e3/ul Critically high 0.00-0.03 [facility] Comment on above: Performed By: #### C BC #### [facility] [address] [address] [address] Ashlie Hills IG % 0.4 % Normal 0.0-0.5 [facility] Comment on above: Performed By: #### C BC #### [facility] [address] [place] [address] Dr. Ashlie Hills LYMPH # 1.3 103/ul Normal 1.2-3.8 [facility] Comment on above: Performed By: #### C BC #### [facility] [address] [place] [address] Dr. Ashlie Hills Lymphocytes/100 WBC (Bld) 9.4 % Critically low 20.5-60.0 [facility] Comment on above: Performed By: #### C BC #### [facility] [address] [place] [address] Dr. Ashlie Hills MANUAL DIFF REQ NO Normal [facility] Comment on above: Performed By: #### C BC #### [facility] [address] [place] [address] Dr. Ashlie Hills MCH (RBC) [Entitic mass] 28.4 pg Normal 26.7-34.0 [facility] Comment on above: Performed By: #### C BC #### [facility] [address] [place] [address] Dr. Ashlie Hills MCHC (RBC) [Mass/Vol] 31.8 g/dL Normal 29.9-35.2 [facility] Comment on above: Performed By: #### C BC #### [facility] [address] [place] [address] Dr. Ashlie Hills MCV (RBC) [Entitic vol] 89.4 fL Normal 81.0-99.0 [facility] Comment on above: Performed By: #### C BC #### [facility] [address] [address] [address] Ashlie Hills MONO # 0.5 103/ul Normal 0.3-0.8 [facility] Comment on above: Performed By: #### C BC #### [facility] [address] [place] [address] Dr. Ashlie Hills Monocytes/100 WBC (Bld) 3.4 % Normal 1.7-12.0 [facility] Comment on above: Performed By: #### C BC #### [facility] [address] [place] [address] Dr. Ashlie Hills NEUT # 11.8 103/ul Critically high 1.4-6.[address] [facility] Comment on above: Performed By: #### C BC #### [facility] [address] [place] [address] Dr. Ashlie Hills Neutrophils/100 WBC (Bld) 86.7 % Critically high 43.0-75.0 [facility] Comment on above: Performed By: #### C BC #### [facility] [address] [place] [address] Dr. Ashlie Hills Platelet mean volume (Bld) [Entitic vol] 12.6 fL Normal 9.5-13.5 [facility] Comment on above: Performed By: #### C BC #### [facility] [address] [place] [address] Dr. Ashlie Hills PLT 133 103/ul Critically low 150-450 [facility] Comment on above: Performed By: #### C BC #### [facility] [address] [place] [address] Dr. Ashlie Hills RBC 5.17 106/ul Normal 4.20-5.40 [facility] Comment on above: Performed By: #### C BC #### [facility] [address] [place] [address] Dr. Ashlie Hills WBC 13.6 103/ul Critically high 4.0-11.[address] [facility] Comment on above: Performed By: #### C BC #### [facility] [address] [place] [address] Dr. Ashlie Hills MAGNESIUMon 12-06-2022 Magnesium [Mass/Vol] 2.2 mg/dL Normal 1.8-2.4 [facility] Comment on above: Performed By: #### I NFLUAB #### [facility] [address] [place] [address] Dr. Ashlie Hills POINT OF CARE GLUCOSEon 11-08 Glucose [Mass/Vol] 333 mg/dL Critically high -106 [facility] Comment on above: Performed By: #### C BC #### [facility] [address] [place] [address] Dr. Ashlie Hills Glucose [Mass/Vol] 276 mg/dL Critically high -106 [facility] Comment on above: Performed By: #### C BC #### [facility] [address] [place] [address] Dr. Ashlie Hills Glucose [Mass/Vol] 340 mg/dL Critically high -106 [facility] Comment on above: Performed By: #### P OCGLUC #### [facility] [address] [place] [address] Dr. Ashlie Hills PROF CHEM 8 (BAS METB)on Anion gap [Moles/Vol] 10.9 mmol/L Normal [facility] Comment on above: Performed By: #### I NFLUAB #### [facility] [address] [place] [address] Dr. Ashlie Hills Calcium [Mass/Vol] 9.3 mg/dL Normal 8.5-10.1 [facility] Comment on above: Performed By: #### I NFLUAB #### [facility] [address] [place] [address] Dr. Ashlie Hills Chloride [Moles/Vol] 103 mmol/L Normal 98-107 [facility] Comment on above: Performed By: #### I NFLUAB #### [facility] [address] [place] [address] Dr. Ashlie Hills CO2 [Moles/Vol] 31.2 mmol/L Normal 21.0-32.0 [facility] [facility] Comment on above: Performed By: #### I NFLUAB #### [facility] [address] [address] [address] Ashlie Hills Creatinine [Mass/Vol] 0.96 mg/dL Normal 0.55-1.02 [facility] Comment on above: Performed By: #### I NFLUAB #### [facility] [address] [address] [address] Ashlie Hills EGFR-AF EGYPTIAN >60 Normal >=60 [facility] Comment on above: Performed By: #### I NFLUAB #### [facility] [address] [address] [address] Ashlie Hills EGFR-NON AF EGYPTIAN >60 Normal >=60 [facility] Comment on above: Performed By: #### I NFLUAB #### [facility] [address] [address] [address] Ashlie Hills Glucose [Mass/Vol] 288 mg/dL Critically high 74-106 [facility] Comment on above: Performed By: #### I NFLUAB #### [facility] [address] [address] [address] Ashlie Hills Potassium [Moles/Vol] 5.1 mmol/L Normal 3.5-5.1 [facility] Comment on above: Performed By: #### I NFLUAB #### [facility] [address] [address] [address] Ashlie Hills Sodium [Moles/Vol] 140 mmol/L Normal 136-145 [facility] Comment on above: Performed By: #### I NFLUAB #### [facility] [address] [address] [address] Ashlie Hills Urea nitrogen [Mass/Vol] 30.0 mg/dL Critically high 7.0-18.0 [facility] Comment on above: Performed By: #### I NFLUAB #### [facility] [address] [address] [address] Ashlie Hills Urea nitrogen/Creatinine [Mass ratio] 31.2 mg/mg Normal [facility] Comment on above: Performed By: #### I NFLUAB #### [facility] [address] [address] [address] Ashlie Hills CBC AUTO DIFFon 12-05-2022 BASO # 0.0 103/ul Normal 0.0-0.1 [facility] Comment on above: Performed By: #### C BC #### [facility] [address] [address] [address] Ashlie Hills Basophils/100 WBC (Bld) 0.4 % Normal 0.2-2.0 [facility] Comment on above: Performed By: #### C BC #### [facility] [address] [place] [address] Dr. Ashlie Hills EO # 0.0 103/ul Normal 0.0-0.7 [facility] Comment on above: Performed By: #### C BC #### [facility] [address] [place] [address] Dr. Ashlie Hills Eosinophils/100 WBC (Bld) 0.0 % Critically low 0.9-7.0 [facility] Comment on above: Performed By: #### C BC #### [facility] [address] [place] [address] Dr. Ashlie Hills Erythrocyte distribution width (RBC) [Ratio] 14.8 % Normal 11.0-15.0 [facility] Comment on above: Performed By: #### C BC #### [facility] [address] [place] [address] Dr. Ashlie Hills Hematocrit (Bld) [Volume fraction] 49.9 % Critically high 36.0-48.0 [facility] Comment on above: Performed By: #### C BC #### [facility] [address] [place] [address] Dr. Ashlie Hills Hemoglobin (Bld) [Mass/Vol] 15.7 g/dL Normal 12.0-16.0 [facility] Comment on above: Performed By: #### C BC #### [facility] [address] [place] [address] Dr. Ashlie Hills IG # 0.04 10e3/ul Critically high 0.00-0.03 [facility] Comment on above: Performed By: #### C BC #### [facility] [address] [place] [address] Dr. Ashlie Hills IG % 0.5 % Normal 0.0-0.5 [facility] Comment on above: Performed By: #### C BC #### [facility] [address] [place] [address] Dr. Ashlie Hills LYMPH # 1.1 103/ul Critically low 1.2-3.8 [facility] Comment on above: Performed By: #### C BC #### [facility] [address] [place] [address] Dr. Ashlie Hills Lymphocytes/100 WBC (Bld) 12.7 % Critically low 20.5-60.0 [facility] Comment on above: Performed By: #### C BC #### [facility] [address] [place] [address] Dr. Ashlie Hills MANUAL DIFF REQ NO Normal [facility] Comment on above: Performed By: #### C BC #### [facility] [address] [place] [address] Dr. Ashlie Hills MCH (RBC) [Entitic mass] 28.1 pg Normal 26.7-34.0 [facility] Comment on above: Performed By: #### C BC #### [facility] [address] [place] [address] Dr. Ashlie Hills MCHC (RBC) [Mass/Vol] 31.5 g/dL Normal 29.9-35.2 [facility] Comment on above: Performed By: #### C BC #### [facility] [address] [place] [address] Dr. Ashlie Hills MCV (RBC) [Entitic vol] 89.3 fL Normal 81.0-99.0 [facility] Comment on above: Performed By: #### C BC #### [facility] [address] [place] [address] Dr. Ashlie Hills MONO # 0.1 103/ul Critically low 0.3-0.8 [facility] Comment on above: Performed By: #### C BC #### [facility] [address] [id number] Ashlie Hills Monocytes/100 WBC (Bld) 1.3 % Critically low 1.7-12.0 [facility] Comment on above: Performed By: #### C BC #### [facility] [address] [address] [address] Ashlie Hills NEUT # 7.2 103/ul Critically high 1.4-6.5 [facility] Comment on above: Performed By: #### C BC #### [facility] [address] [address] [address] Ashlie Hills Neutrophils/100 WBC (Bld) 85.1 % Critically high 43.0-75.0 [facility] Comment on above: Performed By: #### C BC #### [facility] [address] [address] [address] Ashlie Hills Platelet mean volume (Bld) [Entitic vol] 12.2 fL Normal 9.5-13.5 [facility] Comment on above: Performed By: #### C BC #### [facility] [address] [address] [address] Ashlie Hills PLT 116 103/ul Critically low 150-450 [facility] Comment on above: Performed By: #### C BC #### [facility] [address] [address] [address] Ashlie Hills RBC 5.59 106/ul Critically high 4.20-5.[address] [facility] Comment on above: Performed By: #### C BC #### [facility] [address] [address] [address] Ashlie Hills WBC 8.5 103/ul Normal 4.0-11.0 [facility] Comment on above: Performed By: #### C BC #### [facility] [address] [place] [address] Dr. Ashlie Hills CTA CHEST WO W CONon -30-2 023 CTA CHEST WO W CON EXAMINATION: [...] by: HATTIE GOFF Date: 2022-12-05 01:52 Normal [facility] MAGNESIUMon 12-05-2022 Magnesium [Mass/Vol] 2.1 mg/dL Normal 1.8-2.4 [facility] Comment on above: Performed By: #### P OCGLUC #### [facility] [address] [address] [address] Ashlie Hills POINT OF CARE GLUCOSEon 11-08 Glucose [Mass/Vol] 223 mg/dL Critically high 74-106 [facility] Comment on above: Performed By: #### C VDAGS #### [facility] [address] [address] [address] Ashlie Hills Glucose [Mass/Vol] 269 mg/dL Critically high 74-106 [facility] Comment on above: Performed By: #### P OCGLUC #### [facility] [address] [address] [address] Ashlie Hills Glucose [Mass/Vol] 293 mg/dL Critically high 74-106 T [facility] Comment on above: Performed By: #### P OCGLUC #### [facility] [address] [address] [address] Ashlie Hills PROF CHEM 8 (BAS METB)on Anion gap [Moles/Vol] 11.6 mmol/L Normal [facility] Comment on above: Performed By: #### P OCGLUC #### [facility] [address] [address] [address] Ashlie Hills Calcium [Mass/Vol] 9.2 mg/dL Normal 8.5-10.1 [facility] Comment on above: Performed By: #### P OCGLUC #### [facility] [address] [address] [address] Ashlie Hills Chloride [Moles/Vol] 102 mmol/L Normal 98-107 [facility] Comment on above: Performed By: #### P OCGLUC #### [facility] [address] [address] [address] Ashlie Hills CO2 [Moles/Vol] 28.7 mmol/L Normal 21.0-32.0 [facility] Comment on above: Performed By: #### P OCGLUC #### [facility] [address] [address] [address] Ashlie Hills Creatinine [Mass/Vol] 1.04 mg/dL Critically high 0.55-1.02 [facility] Comment on above: Performed By: #### P OCGLUC #### [facility] [address] [address] [address] Ashlie Hills EGFR-AF EGYPTIAN >60 Normal >=60 [facility] Comment on above: Performed By: #### P OCGLUC #### [facility] [address] [address] [address] Ashlie Hills EGFR-NON AF EGYPTIAN 56 mL/min/1.73m2 Critically low >=60 [facility] Comment on above: Performed By: #### P OCGLUC #### [facility] [address] [address] [address] Ashlie Hills Glucose [Mass/Vol] 231 mg/dL Critically high 74-106 [facility] Comment on above: Performed By: #### P OCGLUC #### [facility] [address] [address] [address] Ashlie Hills Potassium [Moles/Vol] 4.3 mmol/L Normal 3.5-5.1 [facility] Comment on above: Performed By: #### P OCGLUC #### [facility] [address] [address] [address] Ashlie Hills Sodium [Moles/Vol] 138 mmol/L Normal 136-145 [facility] Comment on above: Performed By: #### P OCGLUC #### [facility] [address] [address] [address] Ashlie Hills Urea nitrogen [Mass/Vol] 17.0 mg/dL Normal 7.0-18.0 [facility] Comment on above: Performed By: #### P OCGLUC #### [facility] [address] [address] [address] Ashlie Hills Urea nitrogen/Creatinine [Mass ratio] 16.3 mg/mg Normal [facility] Comment on above: Performed By: #### P OCGLUC #### [facility] [address] [place] [address] Dr. Ashlie Hills RESPIRATORY PANEL PLUSon Adenovirus Not detected Normal NOT DETECTED [facility] Comment on above: Performed By: #### C VDAGS #### [facility] [address] [place] [address] Dr. Ashlie Hills B. Parapertusis Not detected Normal NOT DETECTED [facility] Comment on above: Performed By: #### C VDAGS #### [facility] [address] [place] [address] Dr. Ashlie Shaffer. Pertussis Not detected Normal NOT DETECTED [facility] Comment on above: Performed By: #### C VDAGS #### [facility] [address] [place] [address] Dr. Ashlie Hills Chlamydia Pneumoniae Not detected Normal NOT DETECTED [facility] Comment on above: Performed By: #### C VDAGS #### [facility] [address] [place] [address] Dr. Ashlie Hills Coronavirus 229E Not detected Normal NOT DETECTED [facility] Comment on above: Performed By: #### C VDAGS #### [facility] [address] [address] [address] Ashlie Hills Coronavirus HKU1 Not detected Normal NOT DETECTED [facility] Comment on above: Performed By: #### C VDAGS #### [facility] [address] [address] [address] Ashlie Hills Coronavirus NL63 Not detected Normal NOT DETECTED [facility] Comment on above: Performed By: #### C VDAGS #### [facility] [address] [place] [address] Dr. Ashlie Hills Coronavirus OC43 Not detected Normal NOT DETECTED [facility] Comment on above: Performed By: #### C VDAGS #### [facility] [address] [place] [address] Dr. Ashlie Hills Influenza A H1 Not detected Normal NOT DETECTED [facility] Comment on above: Performed By: #### C VDAGS #### [facility] [address] [place] [address] Dr. Ashlie Hills Influenza A H1 2009 Not detected Normal NOT DETECTED [facility] Comment on above: Performed By: #### C VDAGS #### [facility] [address] [place] [address] Dr. Ashlie Hills Influenza A H3 Not detected Normal NOT DETECTED [facility] Comment on above: Performed By: #### C VDAGS #### [facility] [address] [place] [address] Dr. Ashlie Hills Influenza B Not detected Normal NOT DETECTED [facility] Comment on above: Performed By: #### C VDAGS #### [facility] [address] [place] [address] Dr. Ashlie Hills Metapneumovirus Not detected Normal NOT DETECTED [facility] Comment on above: Performed By: #### C VDAGS #### [facility] [address] [address] [address] Ashlie Hills Mycoplas. Pneumoniae Not detected Normal NOT DETECTED [facility] Comment on above: Performed By: #### C VDAGS #### [facility] [address] [address] [address] Ashlie Hills Parainfluenza 1 Not detected Normal NOT DETECTED [facility] Comment on above: Performed By: #### C VDAGS #### [facility] [address] [address] [address] Ashlie Hills Parainfluenza 2 Not detected Normal NOT DETECTED [facility] Comment on above: Performed By: #### C VDAGS #### [facility] [address] [place] [address] Dr. Ashlie Hills Parainfluenza 3 Detected Abnormal NOT DETECTED [facility] Comment on above: Performed By: #### C VDAGS #### [facility] [address] [place] [address] Dr. Ashlie Hills Parainfluenza 4 Not detected Normal NOT DETECTED [facility] Comment on above: Performed By: #### C VDAGS #### [facility] [address] [place] [address] Dr. Ashlie Hills Rhino/Enterovirus Not detected Normal NOT DETECTED [facility] Comment on above: Performed By: #### C VDAGS #### [facility] [address] [place] [address] Dr. Ashlie Hills RP2 Header 1 RESPIRATORY PANEL: VIRUSES Normal [facility] Comment on above: Performed By: #### C VDAGS #### [facility] [address] [place] [address] Dr. Ashlie DE PAZ Header 2 RESPIRATORY PANEL: BACTERIA Normal [facility] Comment on above: Performed By: #### C VDAGS #### [facility] [address] [address] [address] Ashlie Hills RSV Not detected Normal NOT DETECTED [facility] Comment on above: Performed By: #### C VDAGS #### [facility] [address] [address] [address] Ashlie Hills SARS-CoV-2 (COVID-19) RNA MADDY+probe Ql (Unsp spec) Not detected Normal NOT DETECTED [facility] Comment on above: Performed By: #### C VDAGS #### [facility] [address] [place] [address] Dr. Ashlie Hills XR CHEST 1 Von [...] MARYANNE POWER Date: 2022-12-04 22:23 Normal [facility] BLOOD GASES BTYon 12-04-2022 02 MODE ROOM AIR Normal [facility] Comment on above: Performed By: #### C BC #### [facility] [address] [place] [address] Dr. Ashlie Hills ALLENS TEST Positive Normal [facility] Comment on above: Performed By: #### C BC #### [facility] [address] [place] [address] Dr. Ashlie Hills Base excess Calc (Bld) [Moles/Vol] 5.4 mmol/L Critically high -2.0-2.0 [facility] Comment on above: Performed By: #### C BC #### [facility] [address] [place] [address] Dr. Ashlie Hills BIPAP PRESSURE Normal [facility] Comment on above: Performed By: #### C BC #### [facility] [address] [place] [address] Dr. Ashlie Hills CPAP Normal [facility] Comment on above: Performed By: #### C BC #### [facility] [address] [place] [address] Dr. Ashlie Hills FIO2 Normal [facility] Comment on above: Performed By: #### C BC #### [facility] [address] [address] [address] Ashlie Hills HCO3 (Bld) [Moles/Vol] 30.8 mmol/L Critically high 22.0-26.0 [facility] Comment on above: Performed By: #### C BC #### [facility] [address] [address] [address] Ashlie Hills LPM Normal [facility] Comment on above: Performed By: #### C BC #### [facility] [address] [place] [address] Dr. Ashlie Hills MINUTE VOLUME Normal [facility] Comment on above: Performed By: #### C BC #### [facility] [address] [place] [address] Dr. Ashlie Hills Oxygen (Bld) [Partial pressure] 46.3 mm[Hg] Critically low 80.0-100.0 [facility] Comment on above: Performed By: #### C BC #### [facility] [address] [place] [address] Dr. Ashlie Hills Oxygen saturation in Blood 83.9 % Critically low 95.0-100.0 [facility] Comment on above: Performed By: #### C BC #### [facility] [address] [place] [address] Dr. Ashlie Hills PCO2 54.2 mmHg Critically high 35.0-45.0 [facility] Comment on above: Performed By: #### C BC #### [facility] [address] [place] [address] Dr. Ashlie Hills PEEP Normal [facility] Comment on above: Performed By: #### C BC #### [facility] [address] [place] [address] Dr. Ashlie Hills pH (Bld) 7.363 [pH] Normal 7.350-7.450 [facility] Comment on above: Performed By: #### C BC #### [facility] [address] [place] [address] Dr. Ashlie Hills PIP [facility] Comment on above: Performed By: #### C BC #### [facility] [address] [place] [address] Dr. Ashlie Hills PS [facility] Comment on above: Performed By: #### C BC #### [facility] [address] [place] [address] Dr. Ashlie Hills PUNCTURE SITE LR [facility] Comment on above: Performed By: #### C BC #### [facility] [address] [place] [address] Dr. Ashlie Hills RATE [facility] Comment on above: Performed By: #### C BC #### [facility] [address] [place] [address] Dr. Ashlie Hills VENT MODE [facility] Comment on above: Performed By: #### C BC #### [facility] [address] [place] [address] Dr. Ashlie Hills [facility] Comment on above: Performed By: #### C BC #### [facility] [address] [place] [address] Dr. Ashlie Hills BNPon 12-04-2022 Natriuretic peptide B (Bld) [Mass/Vol] 76.0 pg/mL Normal <=900.0 [facility] Comment on above: Performed By: #### P OCGLUC #### [facility] [address] [place] [address] Dr. Ashlie Hills CBC AUTO DIFFon 12-04-2022 BASO # 0.1 103/ul Normal 0.0-0.1 [facility] Comment on above: Performed By: #### C BC #### [facility] [address] [place] [address] Dr. Ashlie Hills Basophils/100 WBC (Bld) 0.6 % Normal 0.2-2.0 [facility] Comment on above: Performed By: #### C BC #### [facility] [address] [place] [address] Dr. Ashlie Hills EO # 0.2 103/ul Normal 0.0-0.7 [facility] Comment on above: Performed By: #### C BC #### [facility] [address] [place] [address] Dr. Ashlie Hills Eosinophils/100 WBC (Bld) 1.9 % Normal 0.9-7.0 [facility] Comment on above: Performed By: #### C BC #### [facility] [address] [place] [address] Dr. Ashlie Hills Erythrocyte distribution width (RBC) [Ratio] 15.0 % Normal 11.0-15.0 [facility] Comment on above: Performed By: #### C BC #### [facility] [address] [place] [address] Dr. Ashlie Hills Hematocrit (Bld) [Volume fraction] 49.1 % Critically high 36.0-48.0 [facility] Comment on above: Performed By: #### C BC #### [facility] [address] [place] [address] Dr. Ashlie Hills Hemoglobin (Bld) [Mass/Vol] 15.6 g/dL Normal 12.0-16.0 [facility] Comment on above: Performed By: #### C BC #### [facility] [address] [place] [address] Dr. Ashlie Hills IG # 0.02 10e3/ul Normal 0.00-0.03 [facility] Comment on above: Performed By: #### C BC #### [facility] [address] [place] [address] Dr. Ashlie Hills IG % 0.2 % Normal 0.0-0.5 [facility] Comment on above: Performed By: #### C BC #### [facility] [address] [place] [address] Dr. Ashlie Hills LYMPH # 2.8 103/ul Normal 1.2-3.8 [facility] Comment on above: Performed By: #### C BC #### [facility] [address] [place] [address] Dr. Ashlie Hills Lymphocytes/100 WBC (Bld) 29.9 % Normal 20.5-60.0 [facility] Comment on above: Performed By: #### C BC #### [facility] [address] [place] [address] Dr. Ashlie Hills MANUAL DIFF REQ NO Normal [facility] Comment on above: Performed By: #### C BC #### [facility] [address] [place] [address] Dr. Ashlie Hills MCH (RBC) [Entitic mass] 28.5 pg Normal 26.7-34.0 [facility] Comment on above: Performed By: #### C BC #### [facility] [address] [place] [address] Dr. Ashlie Hills MCHC (RBC) [Mass/Vol] 31.8 g/dL Normal 29.9-35.2 [facility] Comment on above: Performed By: #### C BC #### [facility] [address] [place] [address] Dr. Ashlie Hills MCV (RBC) [Entitic vol] 89.8 fL Normal 81.0-99.0 [facility] Comment on above: Performed By: #### C BC #### [facility] [address] [place] [address] Dr. Ashlie Hills MONO # 1.0 103/ul Critically high 0.3-0.8 [facility] Comment on above: Performed By: #### C BC #### [facility] [address] [place] [address] Dr. Ashlie Hills Monocytes/100 WBC (Bld) 10.6 % Normal 1.7-12.0 [facility] Comment on above: Performed By: #### C BC #### [facility] [facility] [address] [place] [address] Dr. Ashlie Hills NEUT # 5.3 103/ul Normal 1.4-6.5 [facility] Comment on above: Performed By: #### C BC #### [facility] [address] [place] [address] Dr. Ashlie Hills Neutrophils/100 WBC (Bld) 56.8 % Normal 43.0-75.0 [facility] Comment on above: Performed By: #### C BC #### [facility] [address] [place] [address] Dr. Ashlie Hills Platelet mean volume (Bld) [Entitic vol] 12.5 fL Normal 9.5-13.5 [facility] Comment on above: Performed By: #### C BC #### [facility] [address] [place] [address] Dr. Ashlie Hills PLT 109 103/ul Critically low 150-450 [facility] Comment on above: Performed By: #### C BC #### [facility] [address] [place] [address] Dr. Ashlie Hills RBC 5.47 106/ul Critically high 4.20-5.40 [facility] Comment on above: Performed By: #### C BC #### [facility] [address] [place] [address] Dr. Ashlie Hills WBC 9.4 103/ul Normal 4.0-11.0 [facility] Comment on above: Performed By: #### C BC #### [facility] [address] [place] [address] Dr. Ashlie Hills PROF 14(COMP METB)on 023 Albumin [Mass/Vol] 2.9 g/dL Critically low 3.4-5.0 [facility] Comment on above: Performed By: #### C BC #### [facility] [address] [place] [address] Dr. Ashlie Hills Albumin/Globulin [Mass ratio] 0.6 {ratio} Normal [facility] Comment on above: Performed By: #### C BC #### [facility] [address] [place] [address] Dr. Ashlie Hills ALP [Catalytic activity/Vol] 64 U/L Normal 46-116 [facility] Comment on above: Performed By: #### C BC #### [facility] [address] [place] [address] Dr. Ashlie Hills ALT [Catalytic activity/Vol] 16 U/L Normal 14-59 [facility] Comment on above: Performed By: #### C BC #### [facility] [address] [address] [address] Ashlie Hills Anion gap [Moles/Vol] 9.6 mmol/L Normal [facility] Comment on above: Performed By: #### C BC #### [facility] [address] [place] [address] Dr. Ashlie Hills AST [Catalytic activity/Vol] 16 U/L Normal 15-37 [facility] Comment on above: Performed By: #### C BC #### [facility] [address] [address] [address] Ashlie Hills Bilirubin [Mass/Vol] 0.5 mg/dL Normal 0.2-1.0 [facility] Comment on above: Performed By: #### C BC #### [facility] [address] [place] [address] Dr. Ashlie Hills Calcium [Mass/Vol] 8.7 mg/dL Normal 8.5-10.1 [facility] Comment on above: Performed By: #### C BC #### [facility] [address] [place] [address] Dr. Ashlie Hills Chloride [Moles/Vol] 103 mmol/L Normal 98-107 [facility] Comment on above: Performed By: #### C BC #### [facility] [address] [place] [address] Dr. Ashlie Hills CO2 [Moles/Vol] 30.7 mmol/L Normal 21.0-32.[address] [facility] Comment on above: Performed By: #### C BC #### [facility] [address] [place] [address] Dr. Ashlie Hills Creatinine [Mass/Vol] 0.96 mg/dL Normal 0.55-1.02 [facility] Comment on above: Performed By: #### C BC #### [facility] [address] [place] [address] Dr. Ashlie Hills EGFR-AF EGYPTIAN >60 Normal >=[address] [facility] Comment on above: Performed By: #### C BC #### [facility] [address] [place] [address] Dr. Ashlie Hills EGFR-NON AF EGYPTIAN >60 Normal >=60 [facility] Comment on above: Performed By: #### C BC #### [facility] [address] [place] [address] Dr. Ashlie Hills Globulin (S) [Mass/Vol] 4.7 g/dL Normal [facility] Comment on above: Performed By: #### C BC #### [facility] [address] [address] [address] Ashlie Hills Glucose [Mass/Vol] 170 mg/dL Critically high 74-106 [facility] Comment on above: Performed By: #### C BC #### [facility] [address] [address] [address] Ashlie Hills Potassium [Moles/Vol] 4.3 mmol/L Normal 3.5-5.1 [facility] Comment on above: Performed By: #### C BC #### [facility] [address] [place] [address] Dr. Ashlie Hills Protein [Mass/Vol] 7.6 g/dL Normal 6.4-8.2 [facility] Comment on above: Performed By: #### C BC #### [facility] [address] [place] [address] Dr. Ashlie Hills Sodium [Moles/Vol] 139 mmol/L Normal 136-145 [facility] Comment on above: Performed By: #### C BC #### [facility] [address] [place] [address] Dr. Ashlie Hills Urea nitrogen [Mass/Vol] 16.0 mg/dL Normal 7.0-18.0 [facility] Comment on above: Performed By: #### C BC #### [facility] [address] [address] [address] Ashlie Hills Urea nitrogen/Creatinine [Mass ratio] 16.7 mg/mg Normal [facility] Comment on above: Performed By: #### C BC #### [facility] [address] [place] [address] Dr. Ashlie Hills SYMPTOMATIC COVID-19 ANTIGEN on 12-04-2022 EUA Statement SEE BELOW Normal [facility] Comment on above: Result Comment: This [...] Performed By: #### C VDAGS #### [facility] [address] [place] [address] Dr. Ashlie Hills SARS-CoV-2 (COVID-19) RNA MADDY+probe Ql (Unsp spec) Negative Normal NEGATIVE [facility] Comment on above: Performed By: #### C VDAGS #### [facility] [address] [place] [address] Dr. Ashlie Hills TROPONIN, HIGH SENSITIVITYon 12-04-2022 HSTROP 8.9 pg/mL Normal 4.0-51.3 [facility] Comment on above: Result Comment: CUT- OFF POINTS HAVE BEEN ESTABLISHED BASED ON THE FOURTH UNIVERSAL DEFINITIONS OF MYOCARDIAL INFARCTION. THE UPPER REFERENCE LIMIT (URL) OF TROPONIN, DEFINED THE 99TH PERCENTILE OF cTnI DISTRIBUTION IN A REFERENCE POPULATION, HAS BEEN CONFIRMED THE DECISION THRESHOLD FOR [place] DIAGNOSIS. Performed By: #### P OCGLUC #### [facility] [address] [place] [address] Dr. Ashlie Hills MICROALBUMIN, RAND URon - mALB 35.8 mg/dL Critically high <=30.0 [facility] Comment on above: Performed By: #### C VDAGS #### [facility] [address] [place] [address] Dr. Ashlie Hills UA RANDOM W/MICROSCOPICon BACTERIA NONE SEEN Normal NONE SEEN [facility] Comment on above: Performed By: #### C VDAGS #### [facility] [address] [address] [address] Ashlie Hills Bilirubin Ql (U) Negative Normal NEGATIVE [facility] Comment on above: Performed By: #### C VDAGS #### [facility] [address] [place] [address] Dr. Ashlie Hills CAST SEEN Abnormal NONE SEEN [facility] Comment on above: Performed By: #### C VDAGS #### [facility] [address] [place] [address] Dr. Ashlie Hills Clarity (U) CLEAR Normal CLEAR [facility] Comment on above: Performed By: #### C VDAGS #### [facility] [address] [place] [address] Dr. Ashlie Hills Color (U) YELLOW Normal YELLOW [facility] Comment on above: Performed By: #### C VDAGS #### [facility] [address] [place] [address] Dr. Ashlie Hills Crystals LM Nom (Urine sed) NONE SEEN Normal NONE SEEN [facility] Comment on above: Performed By: #### C VDAGS #### [facility] [address] [place] [address] Dr. Ashlie Hills Epithelial cells LM Ql (Urine sed) MODERATE Abnormal NONE SEEN /RARE [facility] Comment on above: Performed By: #### C VDAGS #### [facility] [address] [place] [address] Dr. Ashlie Hills Glucose Ql (U) Negative Normal NEGATIVE [facility] Comment on above: Performed By: #### C VDAGS #### [facility] [address] [place] [address] Dr. Ashlie Hills Hemoglobin Ql (U) TRACE-INTACT Abnormal NEGATIVE [facility] Comment on above: Performed By: #### C VDAGS #### [facility] [address] [place] [address] Dr. Ashlie Hills Ketones Ql (U) Negative Normal NEGATIVE [facility] Comment on above: Performed By: #### C VDAGS #### [facility] [address] [place] [address] Dr. Ashlie Hills LEUKOCYTES Negative Normal NEGATIVE [facility] Comment on above: Performed By: #### C VDAGS #### [facility] [address] [place] [address] Dr. Ashlie Hills MUCOUS NONE SEEN Normal NONE SEEN [facility] Comment on above: Performed By: #### C VDAGS #### [facility] [address] [place] [address] Dr. Ashlie Hills Nitrite Ql (U) Negative Normal NEGATIVE [facility] Comment on above: Performed By: #### C VDAGS #### [facility] [address] [place] [address] Dr. Ashlie Hills pH (U) 5.0 [pH] Normal 5-9 [facility] Comment on above: Performed By: #### C VDAGS #### [facility] [address] [place] [address] Dr. Ashlie Hills RBC 0-2 Normal 0-2 [facility] Comment on above: Performed By: #### C VDAGS #### [facility] [address] [place] [address] Dr. Ashlie Hills SPEC GRAVITY 1.030 Abnormal 1.005-<=1.025 [facility] Comment on above: Performed By: #### C VDAGS #### [facility] [address] [place] [address] Dr. Ashlie Hills UA PROTEIN 100 mg/dl Abnormal NEGATIVE/ TRACE [facility] Comment on above: Performed By: #### C VDAGS #### [facility] [address] [place] [address] Dr. Ashlie Hills Urobilinogen Qn (U) 0.2 {Little'U}/dL Normal 0.2 - 1. 0 [facility] Comment on above: Performed By: #### C VDAGS #### [facility] [address] [place] [address] Dr. Ashlie Hills WBC NONE SEEN Normal NONE SEEN [facility] Comment on above: Performed By: #### C VDAGS #### [facility] [address] [address] [address] Ashlie Hills CBC AUTO DIFFon 11-22-2022 BASO # 0.0 103/ul Normal 0.0-0.1 [facility] Comment on above: Performed By: #### C BC #### [facility] [address] [address] [address] Ashlie Hills Basophils/100 WBC (Bld) 0.3 % Normal 0.2-2.0 [facility] Comment on above: Performed By: #### C BC #### [facility] [address] [address] [address] Ashlie Hills EO # 0.4 103/ul Normal 0.0-0.7 [facility] Comment on above: Performed By: #### C BC #### [facility] [address] [place] [address] Dr. Ashlie Hills Eosinophils/100 WBC (Bld) 3.0 % Normal 0.9-7.0 [facility] Comment on above: Performed By: #### C BC #### [facility] [address] [place] [address] Dr. Ashlie Hills Erythrocyte distribution width (RBC) [Ratio] 15.3 % Critically high 11.0-15.0 [facility] Comment on above: Performed By: #### C BC #### [facility] [address] [place] [address] Dr. Ashlie Hills Hematocrit (Bld) [Volume fraction] 52.4 % Critically high 36.0-48.0 [facility] Comment on above: Performed By: #### C BC #### [facility] [address] [place] [address] Dr. Ashlie Hills Hemoglobin (Bld) [Mass/Vol] 16.8 g/dL Critically high 12.0-16.0 [facility] Comment on above: Performed By: #### C BC #### [facility] [address] [place] [address] Dr. Ashlie Hills IG # 0.04 10e3/ul Critically high 0.00-0.03 [facility] Comment on above: Performed By: #### C BC #### [facility] [address] [place] [address] Dr. Ashlie Hills IG % 0.3 % Normal 0.0-0.5 [facility] Comment on above: Performed By: #### C BC #### [facility] [address] [place] [address] Dr. Ashlie Hills LYMPH # 4.5 103/ul Critically high 1.2-3.8 [facility] Comment on above: Performed By: #### C BC #### [facility] [address] [place] [address] Dr. Ashlie Hills Lymphocytes/100 WBC (Bld) 33.2 % Normal 20.5-60.0 [facility] Comment on above: Performed By: #### C BC #### [facility] [address] [place] [address] Dr. Ashlie Hills MANUAL DIFF REQ NO Normal [facility] Comment on above: Performed By: #### C BC #### [facility] [address] [place] [address] Dr. Ashlie Hills MCH (RBC) [Entitic mass] 28.0 pg Normal 26.7-34.0 [facility] Comment on above: Performed By: #### C BC #### [facility] [address] [place] [address] Dr. Ashlie Hills MCHC (RBC) [Mass/Vol] 32.1 g/dL Normal 29.9-35.2 [facility] Comment on above: Performed By: #### C BC #### [facility] [address] [place] [address] Dr. Ashlie Hills MCV (RBC) [Entitic vol] 87.3 fL Normal 81.0-99.0 [facility] Comment on above: Performed By: #### C BC #### [facility] [address] [place] [address] Dr. Ashlie Hills MONO # 0.8 103/ul Normal 0.3-0.8 [facility] Comment on above: Performed By: #### C BC #### [facility] [address] [address] [address] Ashlie Hills Monocytes/100 WBC (Bld) 5.7 % Normal 1.7-12.0 [facility] Comment on above: Performed By: #### C BC #### [facility] [address] [address] [address] Ashlie Hills NEUT # 7.8 103/ul Critically high 1.4-6.5 [facility] Comment on above: Performed By: #### C BC #### [facility] [address] [address] [address] Ashlie Hills Neutrophils/100 WBC (Bld) 57.5 % Normal 43.0-75.0 [facility] Comment on above: Performed By: #### C BC #### [facility] [address] [address] [address] Ashlie Hills Platelet mean volume (Bld) [Entitic vol] 12.0 fL Normal 9.5-13.5 [facility] Comment on above: Performed By: #### C BC #### [facility] [address] [address] [address] Ashlie Hills PLT 152 103/ul Normal 150-450 [facility] Comment on above: Performed By: #### C BC #### [facility] [address] [address] [address] Ashlie Hills RBC 6.00 106/ul Critically high 4.20-5.[address] [facility] Comment on above: Performed By: #### C BC #### [facility] [address] [address] [address] Ashlie Hills WBC 13.6 103/ul Critically high 4.0-11.0 [facility] Comment on above: Performed By: #### C BC #### [facility] [address] [address] [address] Ashlie Hills LIPID PROFILEon 11-22-2022 CHOL-HDL RATIO NORM SEE BELOW Normal [facility] Comment on above: Result Comment: 3.3 - 4.4 LOW RISK 4.4 - 7.1 AVERAGE RISK 7.1 - 11.0 MODERATE RISK >11.0 HIGH RISK Performed By: #### C BC #### [facility] [address] [place] [address] Dr. Ashlie Hills Cholesterol [Mass/Vol] 139 mg/dL Normal <=200 [facility] Comment on above: Performed By: #### C BC #### [facility] [address] [place] [address] Dr. Ashlie Hills Cholesterol in HDL [Mass/Vol] 35 mg/dL Critically low 40-60 [facility] Comment on above: Performed By: #### C BC #### [facility] [address] [place] [address] Dr. Ashlie Hills Cholesterol in LDL [Mass/Vol] 67.4 mg/dL Normal [facility] Comment on above: Performed By: #### C BC #### [facility] [address] [place] [address] Dr. Ashlie Hills Cholesterol.total/Ch olesterol in HDL [Mass ratio] 4.0 {ratio} Normal [facility] Comment on above: Performed By: #### C BC #### [facility] [address] [place] [address] Dr. Ashlie Hills HDL NORMAL > or = 60 mg/dl - LOW CARDIOVASCULAR RISK <40 mg/dl - HIGH CARDIOVASCULAR RISK Normal [facility] Comment on above: Performed By: #### C BC #### [facility] [address] [place] [address] Dr. Ashlie Hills LDL CALC NORMAL SEE BELOW Normal [facility] Comment on above: Result Comment: <100 mg/dl OPTIMAL 100 - 129 mg/dl NEAR OR ABOVE OPTIMAL 130 - 159 mg/dl BORDERLINE HIGH 160 - 189 mg/dl HIGH >190 mg/dl VERY HIGH Performed By: #### C BC #### [facility] [address] [place] [address] Dr. Ashlie Hills Triglyceride [Mass/Vol] 183 mg/dL Critically high <=150 [facility] Comment on above: Performed By: #### C BC #### [facility] [address] [place], [place] [address] Dr. Ashlie Hills VLDL CALC 36.6 mg/dL Normal [facility] Comment on above: Performed By: #### C BC #### [facility] [address] [place], [place] [address] Dr. Ashlie Hills MG MAMM SCREEN 3D ALEX CADon 11-22-2022 MG MAMM SCREEN 3D ALEX CAD Patient: MITZI MACIAS Exam Date: 11/22/2022 : 1970 Gender:F Ordering : SAYDA MCKAYLA BLAS [employer] Admission #: [id number] Family : Order #: [id number] CLICK HERE TO VIEW EXAM RADIOLOGY REPORT [...] cancer at age 75. LOCATION: [facility] BREAST COMPOSITION: Almost entirely fatty. [...] LUMP SHOULD BE BIOPSIED. Dictated by: Patricia Veloz M.D. on 11/22/2022 at 12:07 Approved by: Patricia Veloz M.D. on 11/22/2022 at 12:09 Normal [facility] PROF 14(COMP METB)on 023 Albumin [Mass/Vol] 3.0 g/dL Critically low 3.4-5.0 [facility] Comment on above: Performed By: #### C BC #### [facility] [address] [place] [address] Dr. Ashlie Hills Albumin/Globulin [Mass ratio] 0.6 {ratio} Normal [facility] Comment on above: Performed By: #### C BC #### [facility] [address] [place] [address] Dr. Ashlie Hills ALP [Catalytic activity/Vol] 68 U/L Normal 46-116 [facility] Comment on above: Performed By: #### C BC #### [facility] [address] [place] [address] Dr. Ashlie Hills ALT [Catalytic activity/Vol] 14 U/L Normal 14-59 [facility] Comment on above: Performed By: #### C BC #### [facility] [address] [place] [address] Dr. Ashlie Hills Anion gap [Moles/Vol] 12.1 mmol/L Normal [facility] Comment on above: Performed By: #### C BC #### [facility] [address] [place] [address] Dr. Ashlie Hills AST [Catalytic activity/Vol] 9 U/L Critically low 15-37 [facility] Comment on above: Performed By: #### C BC #### [facility] [address] [place] [address] Dr. Ashlie Hills Bilirubin [Mass/Vol] 0.4 mg/dL Normal 0.2-1.0 [facility] Comment on above: Performed By: #### C BC #### [facility] [address] [place] [address] Dr. Ashlie Hills Calcium [Mass/Vol] 9.0 mg/dL Normal 8.5-10.1 [facility] Comment on above: Performed By: #### C BC #### [facility] [address] [place] [address] Dr. Ashlie Hills Chloride [Moles/Vol] 105 mmol/L Normal 98-107 [facility] Comment on above: Performed By: #### C BC #### [facility] [address] [place] [address] Dr. Ashlie Hills CO2 [Moles/Vol] 30.7 mmol/L Normal 21.0-32.0 [facility] Comment on above: Performed By: #### C BC #### [facility] [address] [address] [address] Ashlie Hills Creatinine [Mass/Vol] 0.77 mg/dL Normal 0.55-1.02 [facility] Comment on above: Performed By: #### C BC #### [facility] [address] [address] [address] Ashlie Hills EGFR-AF EGYPTIAN >60 Normal >=60 [facility] Comment on above: Performed By: #### C BC #### [facility] [address] [place] [address] Dr. Ashlie Hills EGFR-NON AF EGYPTIAN >60 Normal >=60 [facility] Comment on above: Performed By: #### C BC #### [facility] [address] [place] [address] Dr. Ashlie Hills Globulin (S) [Mass/Vol] 4.8 g/dL Normal [facility] Comment on above: Performed By: #### C BC #### [facility] [address] [place] [address] Dr. Ashlie Hills Glucose [Mass/Vol] 162 mg/dL Critically high 74-106 [facility] Comment on above: Performed By: #### C BC #### [facility] [address] [place] [address] Dr. Ashlie Hills Potassium [Moles/Vol] 3.8 mmol/L Normal 3.5-5.1 [facility] Comment on above: Performed By: #### C BC #### [facility] [address] [place] [address] Dr. Ashlie Hills Protein [Mass/Vol] 7.8 g/dL Normal 6.4-8.2 [facility] Comment on above: Performed By: #### C BC #### [facility] [address] [place] [address] Dr. Ashlie Hills Sodium [Moles/Vol] 144 mmol/L Normal 136-145 [facility] Comment on above: Performed By: #### C BC #### [facility] [address] [place], [place] [address] Dr[address] Ashlie iHlls Urea nitrogen [Mass/Vol] 24.0 mg/dL Critically high 7.0-18.0 [facility] Comment on above: Performed By: #### C BC #### [facility] [address] [place], [place] [address] Dr[address] Ashlie Hills Urea nitrogen/Creatinine [Mass ratio] 31.2 mg/mg Normal [facility] Comment on above: Performed By: #### C BC #### [facility] [address] [place], [place] [address] Dr. Ashlie Hills Patient Educationon 11-16-19 23 [...] Spinach (cooked), rhubarb, beets, sweet potatoes, and Indonesian chard. ? Peanuts. ? Potato chips, greek fries, and baked potatoes with skin on. ? Nuts and nut products. ? Chocolate. ? If you regularly take a diuretic medicine, make sure to eat at least 1 or 2 servings of fruits or vegetables that are high in potassium each day. These include: ? Avocado. ? Banana. ? Kamas, prune, carrot, or tomato juice. ? Baked [...] fish oil, or vitamin B6. ? Take [id number] and prescription medicines only as told by your health care provider. These include supplements. What foods should I limit? Limit your in (more content not included)... Normal [facility] Reminderson 11-15-2022 Reminders - From: Maria Elena Negrete To: SHEA Adames; Sent: 11/15/2022 14:23:36 EDT Show up: 04/17/2024 14:23:00 EDT Subject: Schedule CT AP w con Due Date/Time: 05/18/2024 13:23:00 EST Please schedule [address] AP w con for adrenal mass. Normal [facility] Urology Office/Clinic Noteon 11-15-2022 Urology Office/Clinic [...] Contact Information SILVIA HOWELL, GAVIOTA Webb, URL [address] [place] [place] [address] Additional Instructions: [address] AP w con Patient Education Dietary Guidelines to Help Prevent Kidney Stones Documentation recorded by the familia Negrete accurately reflects the services(s) I performed and decisions made by me. Authenticated by Gaviota Adames PA-C on 11/15/2022 14:32:07. I, Maria Elena [...] (more content not included)... Normal [facility] Comment on above: Result Comment: Elec tronically Signed By: GAVIOTA ADAMES PA-C\.br\Date and Time Signed: 11/15/22 14:32 EDT\.br\Electronically Co-Signed By: Maria Elena Negrete\.br\Date and Time Co-Signed: 11/15/22 14:22 EDT\.br\Electronically Co-Signed By: Maria Elena Negrete\.br\Date and Time Co-Signed: 11/15/22 14:22 EDT CBC AUTO DIFFon 10-05-2022 BASO # 0.1 103/ul Normal 0.0-0.1 [facility] Comment on above: Performed By: #### C BC #### [facility] [address] [place] [address] Dr. Ashlie Hills Basophils/100 WBC (Bld) 0.6 % Normal 0.2-2.0 [facility] Comment on above: Performed By: #### C BC #### [facility] [address] [address] [address] Ashlie Hills EO # 0.3 103/ul Normal 0.0-0.7 [facility] Comment on above: Performed By: #### C BC #### [facility] [address] [place] [address] Dr. Ashlei Hills Eosinophils/100 WBC (Bld) 2.1 % Normal 0.9-7.0 [facility] Comment on above: Performed By: #### C BC #### [facility] [address] [place] [address] Dr. Ashlie Hills Erythrocyte distribution width (RBC) [Ratio] 15.9 % Critically high 11.0-15.0 [facility] Comment on above: Performed By: #### C BC #### [facility] [address] [place] [address] Dr. Ashlie Hills Hematocrit (Bld) [Volume fraction] 51.8 % Critically high 36.0-48.0 [facility] Comment on above: Performed By: #### C BC #### [facility] [address] [place] [address] Dr. Ashlie Hills Hemoglobin (Bld) [Mass/Vol] 16.6 g/dL Critically high 12.0-16.0 [facility] Comment on above: Performed By: #### C BC #### [facility] [address] [place] [address] Dr. Ashlie Hills IG # 0.03 10e3/ul Normal 0.00-0.03 [facility] Comment on above: Performed By: #### C BC #### [facility] [address] [place] [address] Dr. Ashlie Hills IG % 0.2 % Normal 0.0-0.5 [facility] Comment on above: Performed By: #### C BC #### [facility] [address] [place] [address] Dr. Ashlie Hills LYMPH # 3.9 103/ul Critically high 1.2-3.8 [facility] Comment on above: Performed By: #### C BC #### [facility] [address] [place] [address] Dr. Ashlie Hills Lymphocytes/100 WBC (Bld) 31.7 % Normal 20.5-60.0 [facility] Comment on above: Performed By: #### C BC #### [facility] [address] [place] [address] Dr. Ashlie Hills MANUAL DIFF REQ NO Normal [facility] Comment on above: Performed By: #### C BC #### [facility] [address] [place] [address] Dr. Ashlie Hills MCH (RBC) [Entitic mass] 27.9 pg Normal 26.7-34.0 [facility] Comment on above: Performed By: #### C BC #### [facility] [address] [place] [address] Dr. Ashlie Hills MCHC (RBC) [Mass/Vol] 32.0 g/dL Normal 29.9-35.2 [facility] Comment on above: Performed By: #### C BC #### [facility] [address] [place] [address] Dr. Ashlie Hills MCV (RBC) [Entitic vol] 87.1 fL Normal 81.0-99.0 [facility] Comment on above: Performed By: #### C BC #### [facility] [address] [place] [address] Dr. Ashlie Hills MONO # 0.7 103/ul Normal 0.3-0.8 [facility] Comment on above: Performed By: #### C BC #### [facility] [address] [place] [address] Dr. Ashlie Hills Monocytes/100 WBC (Bld) 5.8 % Normal 1.7-12.0 [facility] Comment on above: Performed By: #### C BC #### [facility] [address] [place] [address] Dr. Ashlie Hills NEUT # 7.3 103/ul Critically high 1.4-6.5 [facility] Comment on above: Performed By: #### C BC #### [facility] [address] [place] [address] Dr. Ashlie Hills Neutrophils/100 WBC (Bld) 59.6 % Normal 43.0-75.0 [facility] Comment on above: Performed By: #### C BC #### [facility] [address] [place] [address] Dr. Ashlie Hills Platelet mean volume (Bld) [Entitic vol] 11.7 fL Normal 9.5-13.5 [facility] Comment on above: Performed By: #### C BC #### [facility] [address] [place] [address] Dr. Ashlie Hills PLT 117 103/ul Critically low 150-450 [facility] Comment on above: Performed By: #### C BC #### [facility] [address] [address] [address] Ashlie Hills RBC 5.95 106/ul Critically high 4.20-5.40 [facility] Comment on above: Performed By: #### C BC #### [facility] [address] [place] [address] Dr. Ashlie Hills WBC 12.3 103/ul Critically high 4.0-11.0 [facility] Comment on above: Performed By: #### C BC #### [facility] [address] [place] [address] ABD/PELV W CONon [...] left renal stone. Electronically authenticated by: RICCO ANNAMARIEALYSSA Date: 2022-10-05 13:13 Normal [facility] ER URINE PROFILEon 3 Bilirubin Ql (U) Negative Normal NEGATIVE [facility] Comment on above: Performed By: #### P OCGLUC #### [facility] [address] [address] [address] Ashlie Hills Clarity (U) CLEAR Normal CLEAR [facility] Comment on above: Performed By: #### P OCGLUC #### [facility] [address] [address] [address] Ashlie Hills Color (U) YELLOW Normal YELLOW [facility] Comment on above: Performed By: #### P OCGLUC #### [facility] [address] [place] [address] Dr. Ashlie HOBBS A micrscopic examination will be performed if indicated. Normal [facility] Comment on above: Performed By: #### P OCGLUC #### [facility] [address] [address] [address] Ashlie Hills Glucose Ql (U) Negative Normal NEGATIVE [facility] Comment on above: Performed By: #### P OCGLUC #### [facility] [address] [address] [address] Ashlie Hills Hemoglobin Ql (U) Negative Normal NEGATIVE [facility] Comment on above: Performed By: #### P OCGLUC #### [facility] [address] [address] [address] Ashlie Hills Ketones Ql (U) Negative Normal NEGATIVE [facility] Comment on above: Performed By: #### P OCGLUC #### [facility] [address] [address] [address] Ashlie Hills LEUKOCYTES Negative Normal NEGATIVE [facility] Comment on above: Performed By: #### P OCGLUC #### [facility] [address] [address] [address] Ashlie Hills Nitrite Ql (U) Negative Normal NEGATIVE [facility] Comment on above: Performed By: #### P OCGLUC #### [facility] [address] [address] [address] Ashlie Hills pH (U) 6.0 [pH] Normal 5-9 [facility] Comment on above: Performed By: #### P OCGLUC #### [facility] [address] [address] [address] Ashlie Hills Protein (U) [Mass/Vol] 100 mg/dL Abnormal NEGATIVE/ TRACE [facility] Comment on above: Performed By: #### P OCGLUC #### [facility] [address] [address] [address] Ashlie Hills SPEC GRAVITY 1.010 Normal 1.005-<=1.025 [facility] Comment on above: Performed By: #### P OCGLUC #### [facility] [address] [place] [address] Dr. Ashlie Hills UR MICRO IND INDICATED Normal [facility] Comment on above: Performed By: #### P OCGLUC #### [facility] [address] [address] [address] Ashlie Hills Urobilinogen Qn (U) 1.0 {Little'U}/dL Normal 0.2 - 1. 0 [facility] Comment on above: Performed By: #### P OCGLUC #### [facility] [address] [place] [address] Dr. Ashlie Hills LIPASEon 10-05-2022 Lipase [Catalytic activity/Vol] 1771.0 U/L Critically high 73.0-393.0 [facility] Comment on above: Performed By: #### C BC #### [facility] [address] [place] [address] Dr. Ashlie Hills PREG HCG QUALon 10-05-2022 , QUAL Negative Normal NEGATIVE [facility] Comment on above: Performed By: #### P OCGLUC #### [facility] [address] [place] [address] Dr. Ashlie Hills PROF 14(COMP METB)on 023 Albumin [Mass/Vol] 3.2 g/dL Critically low 3.4-5.0 [facility] Comment on above: Performed By: #### C BC #### [facility] [address] [address] [address] Ashlie Hills Albumin/Globulin [Mass ratio] 0.7 {ratio} Normal [facility] Comment on above: Performed By: #### C BC #### [facility] [address] [address] [address] Ashlie Hills ALP [Catalytic activity/Vol] 70 U/L Normal 46-116 [facility] Comment on above: Performed By: #### C BC #### [facility] [address] [address] [address] Ashlie Hills ALT [Catalytic activity/Vol] 11 U/L Critically low 14-59 [facility] Comment on above: Performed By: #### C BC #### [facility] [address] [place] [address] Dr. Ashlie Hills Anion gap [Moles/Vol] 10.3 mmol/L Normal [facility] Comment on above: Performed By: #### C BC #### [facility] [address] [place] [address] Dr. Ashlie Hills AST [Catalytic activity/Vol] 11 U/L Critically low 15-37 [facility] Comment on above: Performed By: #### C BC #### [facility] [address] [place] [address] Dr. Ashlie Hills Bilirubin [Mass/Vol] 0.9 mg/dL Normal 0.2-1.0 [facility] Comment on above: Performed By: #### C BC #### [facility] [address] [place] [address] Dr. Ashlie Hills Calcium [Mass/Vol] 9.3 mg/dL Normal 8.5-10.1 [facility] Comment on above: Performed By: #### C BC #### [facility] [address] [place] [address] Dr. Ashlie Hills Chloride [Moles/Vol] 105 mmol/L Normal 98-107 [facility] Comment on above: Performed By: #### C BC #### [facility] [address] [address] [address] Ashlie Hills CO2 [Moles/Vol] 30.6 mmol/L Normal 21.0-32.[address] [facility] Comment on above: Performed By: #### C BC #### [facility] [address] [place] [address] Dr. Ashlie Hills Creatinine [Mass/Vol] 0.62 mg/dL Normal 0.55-1.02 [facility] Comment on above: Performed By: #### C BC #### [facility] [address] [place] [address] Dr. Ashlie Hills EGFR-AF EGYPTIAN >60 Normal >=[address] [facility] Comment on above: Performed By: #### C BC #### [facility] [address] [place] [address] Dr. Ashlie Hills EGFR-NON AF EGYPTIAN >60 Normal >=60 [facility] Comment on above: Performed By: #### C BC #### [facility] [address] [address] [address] Ashlie Hills Globulin (S) [Mass/Vol] 4.6 g/dL Normal [facility] Comment on above: Performed By: #### C BC #### [facility] [address] [place] [address] Dr. Ashlie Hills Glucose [Mass/Vol] 85 mg/dL Normal 74-106 [facility] Comment on above: Performed By: #### C BC #### [facility] [address] [place] [address] Dr. Ashlie Hills Potassium [Moles/Vol] 3.9 mmol/L Normal 3.5-5.1 [facility] Comment on above: Performed By: #### C BC #### [facility] [address] [place] [address] Dr. Ashlie Hills Protein [Mass/Vol] 7.8 g/dL Normal 6.4-8.2 [facility] Comment on above: Performed By: #### C BC #### [facility] [address] [place] [address] Dr. Ashlie Hills Sodium [Moles/Vol] 142 mmol/L Normal 136-145 [facility] Comment on above: Performed By: #### C BC #### [facility] [address] [place] [address] Dr. Ashlie Hills Urea nitrogen [Mass/Vol] 12.0 mg/dL Normal 7.0-18.0 [facility] Comment on above: Performed By: #### C BC #### [facility] [address] [place] [address] Dr. Ashlie Hills Urea nitrogen/Creatinine [Mass ratio] 19.4 mg/mg Normal [facility] Comment on above: Performed By: #### C BC #### [facility] [address] [place] [address] Dr. Ashlie Hills URINE MICROSCOPIC ONLYon BACTERIA TRACE Abnormal NONE SEEN [facility] Comment on above: Performed By: #### P OCGLUC #### [facility] [address] [place] [address] Dr. Ashlie Hills Bacteria identified Cx Nom (U) NOT INDICATED Normal [facility] Comment on above: Performed By: #### P OCGLUC #### [facility] [address] [place] [address] Dr. Ashlie Hills CAST NONE SEEN Normal NONE SEEN [facility] Comment on above: Performed By: #### P OCGLUC #### [facility] [address] [place] [address] Dr. Ashlie Hills Crystals LM Nom (Urine sed) NONE SEEN Normal NONE SEEN [facility] Comment on above: Performed By: #### P OCGLUC #### [facility] [address] [place] [address] Dr. Ashlie Hills Epithelial cells LM Ql (Urine sed) MODERATE Abnormal NONE SEEN /RARE [facility] Comment on above: Performed By: #### P OCGLUC #### [facility] [address] [place] [address] Dr. Ashlie Hills MUCOUS NONE SEEN Normal NONE SEEN [facility] Comment on above: Performed By: #### P OCGLUC #### [facility] [address] [place] [address] Dr. Ashlie Hills RBC 0-2 Normal 0-2 [facility] Comment on above: Performed By: #### P OCGLUC #### [facility] [address] [place] [address] Dr. Ashlie Hills WBC 0-2 Abnormal NONE SEEN [facility] Comment on above: Performed By: #### P OCGLUC #### [facility] [address] [place] [address] Dr. Ashlie Hills Covid-19 PCR ([facility])on 09-06 SARS-CoV-2 (COVID-19) RNA MADDY+probe Ql (Unsp spec) Detected Abnormal NOT DETECTED [facility] Comment on above: Result Comment: This test is not yet approved or cleared by the [place] FDA. When there are no FDA-approved or cleared tests available, and other criteria are met, FDA can make tests available under an emergency access mechanism called an Emergency Use Authorization (EUA). The EUA for this test is supported by the [place] of Health and Human Service's declaration that [...] Performed By: #### C VDAGS #### [facility] [address] [place] [address] Dr. Ashlie Hills INFLUENZA A AND B AGon 09-21 [facility] SEE BELOW Normal [facility] Comment on above: Result Comment: Nega tive for Flu A protein angiten. Infection due to Flu A cannot be ruled out. Flu A angiten in the sample may be below the detection limit of the test. Performed By: #### I NFLUAB #### [facility] [address] [place] [address] Dr. Ashlie Hills INFLUBNEGH SEE BELOW Normal [facility] Comment on above: Result Comment: Nega tive for Flu B protein antigen. Infection due to Flu B cannot be ruled out. Flu B antigen in the sample may be below the detection limit of the test. Performed By: #### I NFLUAB #### [facility] [address] [address] [address] Ashlie Hills INFLUENZA A AG Negative Normal NEGATIVE SEE COMMENT [facility] Comment on above: Performed By: #### I NFLUAB #### [facility] [address] [place], [place] [address] Dr. Ashlie Hills INFLUENZA B AG Negative Normal NEGATIVE SEE COMMENT [facility] Comment on above: Performed By: #### I NFLUAB #### [facility] [address] [address] [address] Ashlie Hills RAD - CT Reporton 07-31-2022 RAD - CT Report [id number] #[id number]:127 Normal [facility] CT ABD/PELV W CONon 07-27-19 CT [...] to at least 10/21/2018, unchanged. https://www.ncbi.nlm .nih.gov/pmc/article s/VBI4403690/ Electronically authenticated by: COLLIN HUERTAS Date: 2022-07-27 14:56 Normal [facility] Reminderson 07-27-2022 Reminders - From: Raquel Tidwell To: EU - Recalls Arauz; Sent: 02/06/2022 11:45:57 EDT Show up: 07/09/2022 11:45:00 EST Subject: Ct scan Due Date/Time: 07/31/2022 11:45:00 EST Reminder/Recall Pt needs Ct scan abd/pelvis w contrast ATTN Adrenals scheduled prior to Aug 2022 appt. She wants [facility] order faxed to [facility] Pt scheduled for 07/27/2022 will monitor [facility] for results over the next few days Normal [facility] Physician Orderon 07-19-2022 Physician Order [id number] #[id number]:[id number] Normal [facility] CREATININEon 07-18-2022 Creatinine [Mass/Vol] 0.81 mg/dL Normal 0.55-1.02 [facility] Comment on above: Performed By: #### C BC #### [facility] [address] [place] [address] Dr. Ashlie Hills EGFR-AF EGYPTIAN >60 Normal >=[address] [facility] Comment on above: Performed By: #### C BC #### [facility] [address] [place] [address] Dr. Ashlie Hills EGFR-NON AF EGYPTIAN >60 Normal >=60 [facility] Comment on above: Performed By: #### C BC #### [facility] [address] [place] [address] LOW EXT W [...] degenerative joint disease. Electronically authenticated by: PATRICIA VELOZ Date: 2022-07-18 14:58 Normal [facility] XR KNEE LT 1_2 Von [...] BAUTISTA Date: 2022-07-18 12:00 Normal [facility] SARS-CoV-2 (COVID-19) RNA MADDY+probe Ql (Unsp spec) Not detected Normal NOT DETECTED [facility] Comment on above: Result Comment: This test is not yet approved or cleared by the [place] FDA. When there are no FDA-approved or cleared tests available, and other criteria are met, FDA can make tests available under an emergency access mechanism called an Emergency Use Authorization (EUA). The EUA for this test is supported by the [place] of Health and Human Service's (HHS's) declaration [...] Performed By: #### C BC #### [facility] [address] [place] [address] Dr. Ashlie Hills INFLUENZA A AND B AGon 07-06 INFLUANE[facility] SEE BELOW Normal [facility] Comment on above: Result Comment: Nega tive for Flu A protein angiten. Infection due to Flu A cannot be ruled out. Flu A angiten in the sample may be below the detection limit of the test. Performed By: #### C BC #### [facility] [address] [place] [address] Dr. Ashlie Hills INFLUBNEGH SEE BELOW Normal [facility] Comment on above: Result Comment: Nega tive for Flu B protein antigen. Infection due to Flu B cannot be ruled out. Flu B antigen in the sample may be below the detection limit of the test. Performed By: #### C BC #### [facility] [address] [place] [address] Dr. Ashlie Hills INFLUENZA A AG Negative Normal NEGATIVE SEE COMMENT [facility] Comment on above: Performed By: #### C BC #### [facility] [address] [place] [address] Dr. Ashlie Hills INFLUENZA B AG Negative Normal NEGATIVE SEE COMMENT [facility] Comment on above: Performed By: #### C BC #### [facility] [address] [place] [address] Dr. Ashlie Hills POINT OF CARE GLUCOSEon 10- Glucose [Mass/Vol] 108 mg/dL Critically high 74-106 [facility] Comment on above: Performed By: #### C BC #### [facility] [address] [place] [address] Dr. Ashlie Hills RAGHU by IFAon 03-07-2022 Antinuclear Antibodies, IFA Negative Normal [facility] Comment on above: Result Comment: Nega tive <1:80 Borderline 1:80 Positive >1:80 ICAP nomenclature: AC-0 For more information about Hep-2 cell patterns use ANApatterns.org, the official website for the International Consensus on Antinuclear Antibody (RAGHU) Patterns (ICAP). Performed By: #### A NAIFA #### [facility] [address] [place] [address] Dr. Ashlie Hills IMMUNOFIXATION (TREVON), URINEo n 03-07-2022 TREVON Interpretation:U Comment Normal [facility] Comment on above: Result Comment: No m onoclonality detected. Performed By: #### C BC #### [facility] [address] [place] [address] Dr. Ashlie Hills IMMUNOFIXATION(TREVON),PROTEIN ELEC(PE),FREon 03-07-2022 Albumin [Mass/Vol] 3.0 g/dL Normal 2.9-4.4 [facility] Comment on above: Performed By: #### I NFLUAB #### [facility] [address] [place] [address] Dr. Ashlie Hills Albumin/Globulin [Mass ratio] 0.8 {ratio} Normal 0.7-1.7 [facility] Comment on above: Performed By: #### I NFLUAB #### [facility] [address] [place] [address] Dr. Ashlie Hills Wunbx-0-Sfzofhnf 0.3 g/dL Normal 0.0-0.[address] [facility] Comment on above: Performed By: #### I NFLUAB #### [facility] [address] [place] [address] Dr. Ashlie Hills Rbqfq-0-Ktdennty 1.0 g/dL Normal 0.4-1.[address] [facility] Comment on above: Performed By: #### I NFLUAB #### [facility] [address] [place] [address] Dr. Ashlie Hills Beta Globulin 1.8 g/dL Critically high 0.7-1.3 [facility] Comment on above: Performed By: #### I NFLUAB #### [facility] [address] [place] [address] Dr. Ashlie Hills Free [place] Lt Chains,S 45.2 mg/L Critically high 3.3-19.4 [facility] Comment on above: Performed By: #### I NFLUAB #### [facility] [address] [address] [address] Ashlie Hills Free Lambda Lt Chains,S 40.3 mg/L Critically high 5.7-26.3 [facility] Comment on above: Performed By: #### I NFLUAB #### [facility] [address] [place] [address] Dr. Ashlie Hills Gamma Globulin 0.8 g/dL Normal 0.4-1.8 The [facility] Comment on above: Performed By: #### I NFLUAB #### [facility] [address] [place] [address] Dr. Ashlie Hills Globulin (S) [Mass/Vol] 3.9 g/dL Normal 2.2-3.9 [facility] Comment on above: Performed By: #### I NFLUAB #### [facility] [address] [place] [address] Dr. Ashlie Hills Immunofixation Result, Serum Comment Normal [facility] Comment on above: Result Comment: No m onoclonality detected. Performed By: #### I NFLUAB #### [facility] [address] [place] [address] Dr. Ashlie Hills Immunoglobulin A, Qn, Serum 776 mg/dL Critically high 87-352 [facility] Comment on above: Performed By: #### I NFLUAB #### [facility] [address] [place] [address] Dr. Ashlie Hills Immunoglobulin G, Qn, Serum 955 mg/dL Normal 586-1602 [facility] Comment on above: Performed By: #### I NFLUAB #### [facility] [address] [place] [address] Dr. Ashlie Hills Immunoglobulin M, Qn, Serum 39 mg/dL Normal 26-217 [facility] Comment on above: Performed By: #### I NFLUAB #### [facility] [address] [place] [address] Dr. Ashlie Hills [place]/Lambda Ratio, S 1.12 Normal 0.26-1.65 [facility] Comment on above: Performed By: #### I NFLUAB #### [facility] [address] [place] [address] Dr. Ashlie Hills M-Bright Not Observed Normal Not Observed The [facility] Comment on above: Performed By: #### I NFLUAB #### [facility] [address] [place] [address] Dr. Ashlie Hills PDF . Normal [facility] Comment on above: Performed By: #### I NFLUAB #### [facility] [address] [place] [address] Dr. Ashlie Hills Please note: Comment Normal [facility] Comment on above: Result Comment: Prot ein electrophoresis scan will follow via computer, mail, or desktop publishing associate delivery. Performed By: #### I NFLUAB #### [facility] [address] [place] [address] Dr. Ashlie Hills Protein [Mass/Vol] 6.9 g/dL Normal 6.0-8.5 [facility] Comment on above: Performed By: #### I NFLUAB #### [facility] [address] [place] [address] Dr. Ashlie Hills C-PEPTIDE, SERUMon C-Peptide, Serum 3.1 ng/mL Normal 1.1-4.4 [facility] Comment on above: Result Comment: C-Pe ptide reference interval is for fasting patients. Performed By: #### C PEPT #### [facility] [address] [place] [address] Dr. Ashlie Hills HEP B SURFACE ANTIGEN SCREEN on 03-04-2022 HBsAg Screen Negative Normal Negative [facility] Comment on above: Performed By: #### C BC #### [facility] [address] [place] [address] Dr. Ashlie Hills HEPATITIS C VIRUS AB W/ REFL EX QUANTon 03-04-2022 HCV AB <0.1 Normal 0.0-0.9 [facility] Comment on above: Performed By: #### I NFLUAB #### [facility] [address] [place] [address] Dr. Ashlie Hills Interpretation: Comment Normal [facility] Comment on above: Result Comment: Nega tive Not infected with HCV, unless recent infection is suspected or other evidence exists to indicate HCV infection. Performed By: #### I NFLUAB #### [facility] [address] [address] [address] Ashlie Hills MICROALBUMIN/ CREATININE RAT IOon 03-04-2022 Albumin, Urine 367.4 ug/mL Normal Not Estab. The [facility] Comment on above: Performed By: #### C BC #### [facility] [address] [address] [address] Ashlie Hills Albumin/ Creatinine Ratio 239 mg/g creat Critically high 0-29 [facility] Comment on above: Result Comment: Norm al: 0 - 29 Moderately increased: 30 - 300 Severely increased: >300 Performed By: #### C BC #### [facility] [address] [address] [address] Ashlie Hills Creatinine, Urine 153.9 mg/dL Normal Not Estab. [facility] Comment on above: Performed By: #### C BC #### [facility] [address] [address] [address] Ashlie Hills VIT D 25-OH LABCORPon 2021 Vitamin D, 25-Hydroxy <4.0 Critically low 30.0-100.0 [facility] Comment on above: Result Comment: Graciela min D deficiency has been defined by the [place] of [employer] and an Endocrine Society practice guideline as a level of serum 25-OH vitamin D less than 20 ng/mL (1,2). The Endocrine Society went on to further define vitamin D insufficiency as a level between 21 and 29 ng/mL (2). 1. IOM ([place] of [employer]). 2010. Dietary reference intakes for calcium and D. [place]: The National Academies Press. 2. Lynda MF, Keely [place], Leandra LOPEZ, et al. Evaluation, treatment, and prevention of vitamin D deficiency: an Endocrine Society clinical practice guideline. JCEM. 2010; 96(7):1911-30. Performed By: #### C BC #### [facility] [address] [address] [address] Ashlie Hills GLYCOHEMOGLOBIN A1Con 2021 ADA RECOMMENDATION SEE BELOW Normal [facility] Comment on above: Result Comment: ADA RECOMMENDED LIMIT 4.0 - 6.0 ADA THERAPEUTIC TARGET < 7.0 ACTION SUGGESTED > 7.0 Performed By: #### C VDAGS #### [facility] [address] [place] [address] Dr. Ashlie Hills Glucose [Mass/Vol] 295 mg/dL Normal [facility] Comment on above: Performed By: #### C VDAGS #### [facility] [address] [place] [address] Dr. Ashlie Hills HbA1c (Bld) [Mass fraction] 11.9 % Critically high 4.5-6.2 [facility] Comment on above: Performed By: #### C VDAGS #### [facility] [address] [place] [address] Dr. Ashlie Hills HEMOGRAM AND PLATELon 2021 Hematocrit (Bld) [Volume fraction] 56.3 % Critically high 36.0-48.0 [facility] Comment on above: Performed By: #### C VDAGS #### [facility] [address] [address] [address] Ashlie Hills Hemoglobin (Bld) [Mass/Vol] 18.0 g/dL Critically high 12.0-16.0 [facility] Comment on above: Performed By: #### C VDAGS #### [facility] [address] [place] [address] Dr. Ashlie Hills MCH (RBC) [Entitic mass] 29.5 pg Normal 26.7-34.0 [facility] Comment on above: Performed By: #### C VDAGS #### [facility] [address] [address] [address] Ashlie Hills MCHC (RBC) [Mass/Vol] 32.0 g/dL Normal 29.9-35.2 [facility] Comment on above: Performed By: #### C VDAGS #### [facility] [address] [place] [address] Dr. Ashlie Hills MCV (RBC) [Entitic vol] 92.1 fL Normal 81.0-99.0 [facility] Comment on above: Performed By: #### C VDAGS #### [facility] [address] [address] [address] Ashlie Hills PLT 123 103/ul Critically low 150-450 [facility] Comment on above: Performed By: #### C VDAGS #### [facility] [address] [address] [address] Ashlie Hills RBC 6.11 106/ul Critically high 4.20-5.40 [facility] Comment on above: Performed By: #### C VDAGS #### [facility] [address] [place] [address] Dr. Ashlie Hills WBC 16.4 103/ul Critically high 4.0-11.0 [facility] Comment on above: Performed By: #### C VDAGS #### [facility] [address] [place] [address] Dr. Ashlie Hills LIPID PROFILEon 03-03-2022 CHOL-HDL RATIO NORM SEE BELOW Normal [facility] Comment on above: Result Comment: 3.3 - 4.4 LOW RISK 4.4 - 7.1 AVERAGE RISK 7.1 - 11.0 MODERATE RISK >11.0 HIGH RISK Performed By: #### C VDAGS #### [facility] [address] [place] [address] Dr. Ashlie Hills Cholesterol [Mass/Vol] 159 mg/dL Normal <=200 [facility] Comment on above: Performed By: #### C VDAGS #### [facility] [address] [place] [address] Dr. Ashlie Hills Cholesterol in HDL [Mass/Vol] 40 mg/dL Normal 40-60 [facility] Comment on above: Performed By: #### C VDAGS #### [facility] [address] [place] [address] Dr. Ashlie Hills Cholesterol in LDL [Mass/Vol] 81.8 mg/dL Normal [facility] Comment on above: Performed By: #### C VDAGS #### [facility] [address] [address] [address] Ashlie Hills Cholesterol.total/Ch olesterol in HDL [Mass ratio] 4.0 {ratio} Normal [facility] Comment on above: Performed By: #### C VDAGS #### [facility] [address] [address] [address] Ashlie Hills HDL NORMAL > or = 60 mg/dl - LOW CARDIOVASCULAR RISK <40 mg/dl - HIGH CARDIOVASCULAR RISK Normal [facility] Comment on above: Performed By: #### C VDAGS #### [facility] [address] [address] [address] Ashlie Hills LDL CALC NORMAL SEE BELOW Normal [facility] Comment on above: Result Comment: <100 mg/dl OPTIMAL 100 - 129 mg/dl NEAR OR ABOVE OPTIMAL 130 - 159 mg/dl BORDERLINE HIGH 160 - 189 mg/dl HIGH >190 mg/dl VERY HIGH Performed By: #### C VDAGS #### [facility] [address] [address] [address] Ashlie Hills Triglyceride [Mass/Vol] 186 mg/dL Critically high <=150 [facility] Comment on above: Performed By: #### C VDAGS #### [facility] [address] [address] [address] Ashlie Hills VLDL CALC 37.2 mg/dL Normal [facility] Comment on above: Performed By: #### C VDAGS #### [facility] [address] [address] [address] Ashlie Hills RENAL FUNCTION PANELon 03-03 Albumin [Mass/Vol] 3.1 g/dL Critically low 3.4-5.0 [facility] Comment on above: Performed By: #### C BC #### [facility] [address] [place] [address] Dr. Ashlie Hills Calcium [Mass/Vol] 9.2 mg/dL Normal 8.5-10.1 [facility] Comment on above: Performed By: #### C BC #### [facility] [address] [address] [address] Ashlie Hills Chloride [Moles/Vol] 102 mmol/L Normal 98-107 [facility] Comment on above: Performed By: #### C BC #### [facility] [address] [address] [address] Ashlie Hills CO2 [Moles/Vol] 31.9 mmol/L Normal 21.0-32.0 [facility] Comment on above: Performed By: #### C BC #### [facility] [address] [address] [address] Ashlie Hills Creatinine [Mass/Vol] 0.68 mg/dL Normal 0.55-1.02 [facility] Comment on above: Performed By: #### C BC #### [facility] [address] [place] [address] Dr. Ashlie Hills EGFR-AF EGYPTIAN >60 Normal >=60 [facility] Comment on above: Performed By: #### C BC #### [facility] [address] [place] [address] Dr. Ashlie Hills EGFR-NON AF EGYPTIAN >60 Normal >=60 [facility] Comment on above: Performed By: #### C BC #### [facility] [address] [address] [address] Ashlie Hills Glucose [Mass/Vol] 131 mg/dL Critically high 74-106 [facility] Comment on above: Performed By: #### C BC #### [facility] [address] [place] [address] Dr. Ashlie Hills Phosphate [Mass/Vol] 4.0 mg/dL Normal 2.6-4.7 [facility] Comment on above: Performed By: #### C BC #### [facility] [address] [place] [address] Dr. Ashlie Hills Potassium [Moles/Vol] 4.0 mmol/L Normal 3.5-5.1 [facility] Comment on above: Performed By: #### C BC #### [facility] [address] [address] [address] Ashlie Hills Sodium [Moles/Vol] 141 mmol/L Normal 136-145 [facility] Comment on above: Performed By: #### C BC #### [facility] [address] [place] [address] Dr. Ashlie Hills Urea nitrogen [Mass/Vol] 17.0 mg/dL Normal 7.0-18.0 [facility] Comment on above: Performed By: #### C BC #### [facility] [address] [place] [address] Dr. Ashlie Hills UA RANDOM W/MICROSCOPICon BACTERIA NONE SEEN Normal NONE SEEN [facility] Comment on above: Performed By: #### I NFLUAB #### [facility] [address] [place] [address] Dr. Ashlie Hills Bilirubin Ql (U) Negative Normal NEGATIVE [facility] Comment on above: Performed By: #### I NFLUAB #### [facility] [address] [place] [address] Dr. Ashlie Hlils CAST NONE SEEN Normal NONE SEEN [facility] Comment on above: Performed By: #### I NFLUAB #### [facility] [address] [place] [address] Dr. Ashlie Hills Clarity (U) CLEAR Normal CLEAR [facility] Comment on above: Performed By: #### I NFLUAB #### [facility] [address] [place] [address] Dr. Ashlie Hills Color (U) YELLOW Normal YELLOW [facility] Comment on above: Performed By: #### I NFLUAB #### [facility] [address] [place] [address] Dr. Ashlie Hills Crystals LM Nom (Urine sed) NONE SEEN Normal NONE SEEN [facility] Comment on above: Performed By: #### I NFLUAB #### [facility] [address] [place] [address] Dr. Ashlie Hills Epithelial cells LM Ql (Urine sed) FEW Abnormal NONE SEEN /RARE [facility] Comment on above: Performed By: #### I NFLUAB #### [facility] [address] [place] [address] Dr. Ashlie Hills Glucose Ql (U) Negative Normal NEGATIVE [facility] Comment on above: Performed By: #### I NFLUAB #### [facility] [address] [address] [address] Ashlie Hills Hemoglobin Ql (U) Negative Normal NEGATIVE [facility] Comment on above: Performed By: #### I NFLUAB #### [facility] [address] [address] [address] Ashlie Hills Ketones Ql (U) Negative Normal NEGATIVE [facility] Comment on above: Performed By: #### I NFLUAB #### [facility] [address] [address] [address] Ashlie Hills LEUKOCYTES Negative Normal NEGATIVE [facility] Comment on above: Performed By: #### I NFLUAB #### [facility] [address] [place] [address] Dr. Ashlie Hills MUCOUS NONE SEEN Normal NONE SEEN [facility] Comment on above: Performed By: #### I NFLUAB #### [facility] [address] [place] [address] Dr. Ashlie Hills Nitrite Ql (U) Negative Normal NEGATIVE [facility] Comment on above: Performed By: #### I NFLUAB #### [facility] [address] [place] [address] Dr. Ashlie Hills pH (U) 5.5 [pH] Normal 5-9 [facility] Comment on above: Performed By: #### I NFLUAB #### [facility] [address] [place] [address] Dr. Ashlie Hills RBC 0-2 Normal 0-2 [facility] Comment on above: Performed By: #### I NFLUAB #### [facility] [address] [place] [address] Dr. Ashlie Hilsl SPEC GRAVITY >=1.030 Abnormal 1.005-<=1.025 [facility] Comment on above: Performed By: #### I NFLUAB #### [facility] [address] [place] [address] Dr. Ashlie Hills UA PROTEIN 100 mg/dl Abnormal NEGATIVE/ TRACE [facility] Comment on above: Performed By: #### I NFLUAB #### [facility] [address] [place] [address] Dr. Ashlie Hills Urobilinogen Qn (U) 0.2 {Little'U}/dL Normal 0.2 - 1. 0 [facility] Comment on above: Performed By: #### I NFLUAB #### [facility] [address] [place] [address] Dr. Ashlie Hills WBC NONE SEEN Normal NONE SEEN [facility] Comment on above: Performed By: #### I NFLUAB #### [facility] [address] [place] [address] Dr. Ashlie Hills URIC ACID SERUMon 03-03-2022 Urate [Mass/Vol] 5.0 mg/dL Normal 2.6-6.0 [facility] Comment on above: Performed By: #### I NFLUAB #### [facility] [address] [place] [address] Dr. Ashlie Hills URINE T PROTEIN CREAT RATIOo n 03-03-2022 Protein (U) [Mass/Vol] 77.9 mg/dL Critically high <=12.0 [facility] Comment on above: Performed By: #### C VDAGS #### [facility] [address] [place] [address] Dr. Ashlie Hills UR PROT CREAT RAT 0.44 Normal [facility] Comment on above: Performed By: #### C VDAGS #### [facility] [address] [place] [address] Dr. Ashlie Hills URINE CREAT 175.15 mg/dL Normal 20.00-300.00 [facility] Comment on above: Performed By: #### C VDAGS #### [facility] [address] [place] [address] Dr. Ashlie Hills Consultation Noteon 02-23-20 22 Consultation Note [id number] #1.00CD:127 Normal [facility] Formson 02-10-2022 Forms [id number] #1.00CD:127 Normal [facility] Physician Referralon 022 Physician Referral [id number] #1.00CD:127 Normal [facility] Ambulatory Visit Summaryon 0 02-06-2022 Ambulatory Visit Summary MITZI MACIAS :1970 Visit Date:02/06/2022 Ambulatory Visit Instructions Your Diagnosis Angiomyolipoma Kidney stone BPH with urinary obstruction Smoker Adrenal mass 1 cm to 4 cm in diameter Other obstructive and reflux uropathy Tests Performed Urnls Dip Stick Auto w/o Microscopy POC 18817 CT Abdomen/Pelvis w/ Contrast -- Results Pending -- Please visit your patient portal for your results or contact your primary care physician. Your Care Team Attending Physician - Elbert ARAUZ MD Primary Care Physician - MCKAYLA BLAS [...] [facility] [address], [place] [address] [phone] Medications What How Much When Instructions Unchanged [...] Urnls Dip Stick Auto w/o Microscopy POC 00031 (02/06/2022) Bilirubin Urine Dipstick - Negative Blood Urine Dipstick - Negative Glucose Urine Dipstick - 2+ 500 mg/dl Ketones Urine Dipstick - Negative Leukocytes Urine Dipstick - Negative Nitrite Urine Dipstick - Negative Protein Urine Dipstick - 3+ (300 mg/dl) Specific [place] Urine Dipstick - >=1.030 Urine Appearance Urine [...] (more content not included)... Normal [facility] Patient Educationon 02-07-20 Patient Education Obstetrics [...] (more content not included)... Normal [facility] Urology Office/Clinic Noteon 02-06-2022 Urology Office/Clinic [...] and history for this patient from Dr. Arauz. I have reviewed and verified the staff [...] of protein. Recommended pt to see a hand endband cutter due to high protein levels in the urine. All questions/concerns were discussed. Pt to call office if she encounters any issues prior. Pt acknowledges understanding. Other obstructive and reflux uropathy (N13.8: Other obstructive and reflux uropathy) Follow-up With When Contact Information Elbert ARAUZ MD, URL In 6 months [facility] [address] [place] [address] [phone] Additional Instructions: w/ repeat CT A/P Patient Education Overactive Bladder, Adult I, Enedelia Mendoza, personally scribed for Dr. Arauz on 02/06/2022 11:42:16. . Documentation recorded by the scribeEnedelia, accurately reflects the services(s) I performed and decisions made by me. Authenticated by Dr. Arauz on 02/06/2022 11:45:18. Problem List/Past Medical History Ongoing Adrenal mass 1 cm to 4 cm in diameter Arthritis Asthma COPD type A Headache Hypertension Kidney stone Left flank pain (more content not included)... Normal [facility] Comment on above: Result Comment: Elec tronically Signed By: Elbert ARAUZ MD\.br\Date and Time Signed: 02/06/22 11:45 EDT\.br\Electronically Co-Signed By: Enedelia Mendoza\.br\Date and Time Co-Signed: 02/06/22 11:42 EDT CULTURE URINEon 12-25-2021 CULTURE URINE Culture Observations: GREATER THAN TWO ORGANISMS PRESENT, HEAVILY MIXED. PLEASE RESUBMIT CLEAN CATCH MID-STREAM URINE IF CLINICALLY INDICATED. Normal [facility] Comment on above: Performed By: #### I NFLUAB #### [facility] [address] [address] [address] Ashlie Hills CBC AUTO DIFFon 12-24-2021 BASO # 0.1 103/ul Normal 0.0-0.1 [facility] Comment on above: Performed By: #### C BC #### [facility] [address] [place] [address] Dr. Ashlie Hills Basophils/100 WBC (Bld) 0.5 % Normal 0.2-2.0 [facility] Comment on above: Performed By: #### C BC #### [facility] [address] [place] [address] Dr. Ashlie Hills EO # 0.4 103/ul Normal 0.0-0.7 [facility] Comment on above: Performed By: #### C BC #### [facility] [address] [place] [address] Dr. Ashlie Hills Eosinophils/100 WBC (Bld) 2.4 % Normal 0.9-7.0 [facility] Comment on above: Performed By: #### C BC #### [facility] [address] [place] [address] Dr. Ashlie Hills Erythrocyte distribution width (RBC) [Ratio] 14.1 % Normal 11.0-15.0 [facility] Comment on above: Performed By: #### C BC #### [facility] [address] [place] [address] Dr. Ashlie Hills Hematocrit (Bld) [Volume fraction] 55.9 % Critically high 36.0-48.0 [facility] Comment on above: Performed By: #### C BC #### [facility] [address] [place] [address] Dr. Ashlie Hills Hemoglobin (Bld) [Mass/Vol] 17.9 g/dL Critically high 12.0-16.0 [facility] Comment on above: Performed By: #### C BC #### [facility] [address] [place] [address] Dr. Ashlie Hills IG # 0.06 10e3/ul Critically high 0.00-0.03 [facility] Comment on above: Performed By: #### C BC #### [facility] [address] [place] [address] Dr. Ashlie Hills IG % 0.4 % Normal 0.0-0.5 [facility] Comment on above: Performed By: #### C BC #### [facility] [address] [place] [address] Dr. Ashlie Hills LYMPH # 5.8 103/ul Critically high 1.2-3.8 [facility] Comment on above: Performed By: #### C BC #### [facility] [address] [place] [address] Dr. Ashlie Hills Lymphocytes/100 WBC (Bld) 35.4 % Normal 20.5-60.0 [facility] Comment on above: Performed By: #### C BC #### [facility] [address] [place] [address] Dr. Ashlie Hills MANUAL DIFF REQ NO Normal [facility] Comment on above: Performed By: #### C BC #### [facility] [address] [place] [address] Dr. Ashlie Hills MCH (RBC) [Entitic mass] 29.4 pg Normal 26.7-34.0 [facility] Comment on above: Performed By: #### C BC #### [facility] [address] [place] [address] Dr. Ashlie Hills MCHC (RBC) [Mass/Vol] 32.0 g/dL Normal 29.9-35.2 [facility] Comment on above: Performed By: #### C BC #### [facility] [address] [place] [address] Dr. Ashlie Hills MCV (RBC) [Entitic vol] 91.8 fL Normal 81.0-99.0 [facility] Comment on above: Performed By: #### C BC #### [facility] [address] [place] [address] Dr. Ashlie Hills MONO # 0.8 103/ul Normal 0.3-0.8 [facility] Comment on above: Performed By: #### C BC #### [facility] [address] [place] [address] Dr. Ashlie Hills Monocytes/100 WBC (Bld) 4.8 % Normal 1.7-12.0 [facility] Comment on above: Performed By: #### C BC #### [facility] [address] [address] [address] Ashlie Hills NEUT # 9.3 103/ul Critically high 1.4-6.5 [facility] Comment on above: Performed By: #### C BC #### [facility] [address] [address] [address] Ashlie Hills Neutrophils/100 WBC (Bld) 56.5 % Normal 43.0-75.0 [facility] Comment on above: Performed By: #### C BC #### [facility] [address] [address] [address] Ashlie Hills Platelet mean volume (Bld) [Entitic vol] 12.9 fL Normal 9.5-13.5 [facility] Comment on above: Performed By: #### C BC #### [facility] [address] [address] [address] Ashlie Hills PLT 127 103/ul Critically low 150-450 [facility] Comment on above: Performed By: #### C BC #### [facility] [id number] Ashlie Hills RBC 6.09 106/ul Critically high 4.20-5.[address] [facility] Comment on above: Performed By: #### C BC #### [facility] [id number] Ashlie Hills WBC 16.4 103/ul Critically high 4.0-11.[address] [facility] Comment on above: Performed By: #### C BC #### [facility] [address] [address] [address] ABD/PELVIS WO CONon [...] right hip degenerative change. Normal [facility] URINE PROFILEon 06-18-202 2 Bilirubin Ql (U) Negative Normal NEGATIVE [facility] Comment on above: Performed By: #### Tracey LYMAN UMICRO #### [facility] [address] [address] [address] Ashlie Hills Clarity (U) CLEAR Normal CLEAR [facility] Comment on above: Performed By: #### E NURA, UMICRO #### [facility] [address] [address] [address] Ashlie Hills Color (U) DK. ORANGE Abnormal YELLOW [facility] Comment on above: Performed By: #### E NURA UMICRO #### [facility] [address] [place] [address] Dr. Ashlie HOBBS A micrscopic examination will be performed if indicated. Normal [facility] Comment on above: Performed By: #### E NURA UMICRO #### [facility] [address] [place] [address] Dr. Ashlie Hills Glucose Ql (U) 250 mg/dl Abnormal NEGATIVE [facility] Comment on above: Performed By: #### Tracey LYMAN UMICRO #### [facility] [address] [address] [address] Ashlie Hills Hemoglobin Ql (U) Negative Normal NEGATIVE [facility] Comment on above: Performed By: #### Tracey LYMAN UMICRO #### [facility] [address] [place] [address] Dr. Ashlie Hills Ketones Ql (U) Negative Normal NEGATIVE [facility] Comment on above: Performed By: #### Tracey LYMAN UMICRO #### [facility] [address] [place] [address] Dr. Ashlie Hills LEUKOCYTES Negative Normal NEGATIVE [facility] Comment on above: Performed By: #### Tracey LYMAN UMICRO #### [facility] [address] [place] [address] Dr. Ashlie Hills Nitrite Ql (U) Negative Normal NEGATIVE [facility] Comment on above: Performed By: #### Tracey LYMAN UMICRO #### [facility] [address] [place] [address] Dr. Ashlie Hills pH (U) 5.0 [pH] Normal 5-9 [facility] Comment on above: Performed By: #### EVONNE DIAZ #### [facility] [address] [place] [address] Dr. Ashlie Hills Protein (U) [Mass/Vol] 100 mg/dL Abnormal NEGATIVE/ TRACE [facility] Comment on above: Performed By: #### EVONNE DIAZ #### [facility] [address] [place] [address] Dr. Ashlie Hills SPEC GRAVITY >=1.030 Abnormal 1.005-<=1.025 [facility] Comment on above: Performed By: #### EVONNE DIAZ #### [facility] [address] [place] [address] Dr. Ashlie Hills UR MICRO IND INDICATED Normal [facility] Comment on above: Performed By: #### EVONNE DIAZ #### [facility] [address] [place] [address] Dr. Ashlie Hills Urobilinogen Qn (U) 1.0 {Little'U}/dL Normal 0.2 - 1. 0 [facility] Comment on above: Performed By: #### EVONNE DIAZ #### [facility] [address] [place] [address] Dr. Ashlie Hills PROF CHEM 8 (BAS METB)on Anion gap [Moles/Vol] 12.1 mmol/L Normal [facility] Comment on above: Performed By: #### I NFLUAB #### [facility] [address] [place] [address] Dr. Ashlie Hills Calcium [Mass/Vol] 9.0 mg/dL Normal 8.5-10.1 [facility] Comment on above: Performed By: #### I NFLUAB #### [facility] [address] [place] [address] Dr. Ashlie Hills Chloride [Moles/Vol] 101 mmol/L Normal 98-107 [facility] Comment on above: Performed By: #### I NFLUAB #### [facility] [address] [address] [address] Ashlie Hills CO2 [Moles/Vol] 29.1 mmol/L Normal 21.0-32.0 [facility] Comment on above: Performed By: #### I NFLUAB #### [facility] [address] [address] [address] Ashlie Hills Creatinine [Mass/Vol] 0.86 mg/dL Normal 0.55-1.02 [facility] Comment on above: Performed By: #### I NFLUAB #### [facility] [address] [address] [address] Ashlie Hills EGFR-AF EGYPTIAN >60 Normal >=60 [facility] Comment on above: Performed By: #### I NFLUAB #### [facility] [address] [place] [address] Dr. Ashlie Hills EGFR-NON AF EGYPTIAN >60 Normal >=60 [facility] Comment on above: Performed By: #### I NFLUAB #### [facility] [address] [address] [address] Ashlie Hills Glucose [Mass/Vol] 236 mg/dL Critically high 74-106 [facility] Comment on above: Performed By: #### I NFLUAB #### [facility] [address] [address] [address] Ashlie Hills Potassium [Moles/Vol] 4.2 mmol/L Normal 3.5-5.1 [facility] Comment on above: Performed By: #### I NFLUAB #### [facility] [address] [address] [address] Ashlie Hills Sodium [Moles/Vol] 138 mmol/L Normal 136-145 [facility] Comment on above: Performed By: #### I NFLUAB #### [facility] [address] [address] [address] Ashlie Hills Urea nitrogen [Mass/Vol] 11.0 mg/dL Normal 7.0-18.0 [facility] Comment on above: Performed By: #### I NFLUAB #### [facility] [address] [place] [address] Dr. Ashlie Hills Urea nitrogen/Creatinine [Mass ratio] 12.8 mg/mg Normal [facility] Comment on above: Performed By: #### I NFLUAB #### [facility] [address] [place] [address] Dr. Ashlie Hills URINE MICROSCOPIC ONLYon BACTERIA SMALL Abnormal NONE SEEN [facility] Comment on above: Performed By: #### E NURA, UMICRO #### [facility] [address] [place] [address] Dr. Ashlie Hills Bacteria identified Cx Nom (U) INDICATED Normal [facility] Comment on above: Performed By: #### E NURA UMICRO #### [facility] [address] [place] [address] Dr. Ashlie Hills CAST NONE SEEN Normal NONE SEEN [facility] Comment on above: Performed By: #### Tracey LYMAN UMICRO #### [facility] [address] [place] [address] Dr. Ashlie Hills Crystals LM Nom (Urine sed) NONE SEEN Normal NONE SEEN [facility] Comment on above: Performed By: #### Tracey LYMAN UMICRO #### [facility] [address] [place] [address] Dr. Ashlie Hills Epithelial cells LM Ql (Urine sed) MODERATE Abnormal NONE SEEN /RARE [facility] Comment on above: Performed By: #### Tracey LYMAN UMICRO #### [facility] [address] [place] [address] Dr. Ashlie Hills MUCOUS NONE SEEN Normal NONE SEEN [facility] Comment on above: Performed By: #### Tracey LYMAN UMICRO #### [facility] [address] [place] [address] Dr. Ashlie Hills RBC 0-2 Normal 0-2 [facility] Comment on above: Performed By: #### Tracey LYMAN UMICRO #### [facility] [address] [place] [address] Dr. Ashlie Hills WBC 0-2 Abnormal NONE SEEN [facility] Comment on above: Performed By: #### E RUR, UMICRO #### [facility] [address] [address] [address] Ashlie Hills YEAST PRESENT Abnormal NONE SEEN [facility] Comment on above: Performed By: #### E RUR, UMICRO #### [facility] [address] [address] [address] Ashlie Hills HIP RIGHT 1 OR 2 VWS WITH PE LVISon 07-20-2020 HIP RIGHT 1 OR 2 VWS WITH PELVIS [facility] [address] [place] [address] Patient Name: MITZI MACIAS : 1970 Sex: F Age: Race: White Pt. Location: Patient Status: O Ordered Date: 07/20/2020 1:45:00 PM Completed Date: 07/20/2020 01:57 PM Requesting Provider: LIZ EISENBERG Attending Provider: LIZ EISENBERG Report Copy To: MCKAYLA BLAS Signs & Symptoms: M25.551 Pain in right hip I10 History: [place] Comments: evaluate Exam: HIP RIGHT 1 OR [...] MRI. Electronically signed: Pipo Acevedo. Transcribed by: [email or web address], User Resident: Electronically Signed by: PIPO ACEVEDO @ 07/20/2020 03:45 PM Normal [facility] Comment on above: Order Comment: evalu ate Social History Date Type Detail Facility Start: 07-10-2023 [facility]igned At [facility] Start: 07-10-2023 Tobacco use and exposure Smoke less tobacco non-user [facility] Start: 07-10-2023 Alcohol intake Lifetime non-d adrien (finding) [facility] Start: 11-15-2022 Tobacco smoking status Heavy t obacco smoker (finding) [facility] Start: 02-06-2022 Tobacco smoking status Smoker (findi ng) [facility] Start: 02-17-2014 End: 07-10-2023 Tobacco smoking status NHIS Current every day smoker [place] Start: 02-17-2014 End: 07-10-2023 Cigarettes smoked current (pack per day) - Reported [place] Start: 02-17-2014 Alcohol intake Current drinke r of alcohol (finding) [place] Start: 02-17-2014 Alcohol Comment [place] Start: 02-17-1994 History of tobacco use Cigarette Smo ker [place] Start: 1970 Sex Assigned At Not on file [place] Exposure to SARS-CoV -2 (event) Unable to assess [place] Within the last year , have you been afraid of your partner or ex-partner? No [facility] Do you belong to any clubs or organizations such as temple groups, unions, fraternal or athletic groups, or [...] to buy more. Never true [facility] Vital Signs Date Time Vital Sign Value Performing Clinician Facility 03-08-2022 15:00-0400 Body height 170.18 cm Stephanie Tico Other [facility] Other 03-08-2022 15:00-0400 Body temperature 97.6 [degF] Stephanie Tico Other [facility] Other 03-08-2022 15:00-0400 Diastolic blood pressure 72 mm[Hg] Stephanie Tico Other [facility] Other 03-08-2022 15:00-0400 Respiratory rate 20 /min Stephanie Tico Other [facility] Other 03-08-2022 15:00-0400 SaO2% (BldA) [Mass fraction] 91 % Stephanie Tico Other [facility] Other 03-08-2022 15:00-0400 Systolic blood pressure 131 mm[Hg] Stephanie Tico Other [facility] Other 02-20-2022 09:20-0400 Body height 170.18 cm Stephanie Tico Other [facility] Other 02-20-2022 09:20-0400 Body temperature 96.5 [degF] Stephanie Tico Other [facility] Other 02-20-2022 09:20-0400 Diastolic blood pressure 69 mm[Hg] Stephanie Tico Other [facility] Other 02-20-2022 09:20-0400 Respiratory rate 20 /min Stephanie Tico Other [facility] Other 02-20-2022 09:20-0400 SaO2% (BldA) [Mass fraction] 91 % Stephanie Tico Other [facility] Other 02-20-2022 09:20-0400 Systolic blood pressure 129 mm[Hg] Stephanie Tico Other [facility] Other 02-06-2022 10:24-0400 Blood Pressure Location Elbert First To File [facility] 02-06-2022 10:24-0400 Diastolic blood pressure 76 mm[Hg] Elbert ARAUZ [facility] 02-06-2022 10:24-0400 Heart rate 70 /min Elbert ARAUZ [facility] 02-06-2022 10:24-0400 Respiratory rate 16 /min Elbert ARAUZ [facility] 02-06-2022 10:24-0400 Systolic blood pressure 134 mm[Hg] Elbert ARAUZ [facility] Functional Status Date Assessment Result Facility 11-15-2022 Functional Status N/A [facility] 02-06-2022 Functional Status N/A [facility] Clinical Notes 01-19-2022 to 11-14-2023 Note Date & Type Note Facility 11-14-2023 Note [place] [facility] Subjective Mitzi Macias is a 53 y.o. year old female being seen as new patient to establish care. Ref from Mckayla Blas CNP for pulmonary hypertension. She had echo in Aug 2023 while inpatient at [facility] for pneumonia and COPD exacerbation. Denies chest [...] was admitted in early 2023 to the [facility] with hypoxemia and treated as [...] wheelchair Skin: Gene (more content not included)... [facility] 11-15-2022 Hospital Discharg e instructions Patient Education [...] include: ?8 oz (237 mL) of milk, hndljdh-qfpzjyoicmtg-zlnub milk, and calcium-fortifiedfruit juice. Calcium-fortified means that [...] ?Spinach (cooked), rhubarb, beets, sweet potatoes, and Indonesian chard. ?Peanuts. ?Potato chips, greek fries, and baked potatoes with skin on. ?Nuts and nut products. ?Chocolate. If you regularly take a diuretic medicine, make sure to eat at least 1 or 2 servings of fruits or vegetables that are high in potassium each day. These include: ?Avocado. ?Banana. ?Kamas, prune, carrot, or tomato juice. ?Baked potato. [...] magnesium, fish oil, or vitamin B6. Take vjul-gjq-rihsukm and prescription medicines only as told by [...] Casseroles. Pizza. Lasagna. Frozen meals. Potato chips. Ethiopian fries. The items listed above may not [...] provider. Document Revised: 03/06/2022 Document Reviewed: 03/06/2022 [employer] Patient Education 2022 [employer]. Follow Up Care 02/06/2022 11:44:09 With:GAVIOTA ADAMES PA-C, URL Address: [address] [place] [address] When: Unknown [facility] 08-24-2022 Note CONSULTATION CONSULTATION DATE: 08/24/2022 [...] We maintain her on pain medication with Lake 5/325 t.i.d., diclofenac 75 mg b.i.d. Her [...] her at this point. A refill for Lake 5/325 t.i.d. and diclofenac 75 mg b.i.d. will be sent to the pharmacy. Vitamin compliance and nutrition were discussed and enforced. I did highly encourage her to use exercise bands to increase the strength in her lower extremities. We will see her in three months' time, unless otherwise indicated, and patient agrees. [facility] 05-11-2022 Note CONSULTATION CONSULTATION DATE: [...] 150. Medications include Lyrica 300 mg b.i.d., Lake 5/325 t.i.d., diclofenac 75 mg b.i.d. and [...] her medications today. We will maintain Lyrica, Lake and diclofenac at the set dose and frequency. We will follow-up in the clinic in three months' time. The patient is in agreement to this. Vitamin importance and nutrition were discussed. [facility] 04-20-2022 Note CONSULTATION CONSULTATION DATE: [...] medications include Tylenol, Lyrica 300 mg b.i.d., Lake 5/325 t.i.d., amitriptyline, diclofenac and duloxetine. Patient's [...] followed up in the clinic. [facility] 03-08-2022 Evaluation note Encounter Date [...] to follow with Dr. Souza and Dr. Arauz. Feb, Erythrocytosis (ICD-10 - D75.1) He has leukocytosis, erythrocytosis and thrombocytopenia. I discussed with her the option of the hematology referral. She would like the PCP to take care of it. Differential diagnosis of her polycythemia is likely secondary due to the DANIEL. Thrombocytopenia is unclear etiology. [facility] Other 08-15-2022 Evaluation note* Encounter Date Diagnosis [...] to follow with Dr. Souza and Dr. Arauz. [facility] 08-01-2022 Hospital Discharge instructions Patient Education [...] fried and sweet foods. General instructions Take mdww-ssr-qlvftyv and prescription medicines only as told by [...] 04/21/2010 Document Revised: 10/16/2019 Document Reviewed: 07/11/2018 [employer] Patient Education 2020 [employer]. Follow Up Care 01/05/2022 12:02:03 With:REGLA PHIPPS, Elbert Joya, URL Address: [facility] [address], [place] [address]- [phone] When:Within 6 Month(s) Comments:w/ repeat CT A/P [facility] 07-14-2022 NoteCONSULTATION PROCEDURE DATE: 01/19/2022 PRE [...] pattern and the patient tolerated it well. [facility] Signed and Approved by: GIL VALENZUELA . 01/27/2022 14:15:00[facility]07-14-2022 NoteCONSULTATION CONSULTATION DATE: 01/19/2022 This is a [...] her up with an appointment with Dr. Arauz in Urology on February 06. The patient lives a very sedentary lifestyle and does not participate in exercise or use heat. Activities that aggravate this pain is twisting, pushing, pulling, turning, stairs and bending. The patient does present in a wheelchair today. Medications include Lyrica 300 mg b.i.d., Lake 5/325 t.i.d., diclofenac 75 mg b.i.d. and [...] in three months' time unless otherwise indicated. [facility] Signed and Approved by: GIL VALENZUELA . 01/27/2022 [facility]ments Appointment Date:08/14/2022 09:15:00 AM Scheduled Provider:Elbert ARAUZ MD Location:[facility] Appointment Type:URO Office Visit [facility] evaluation + Plan note Future Appointments Appointment Date:04/22/2024 10:00:00 AM Scheduled Provider:GAVIOTA ADAMES PA-C Location:[facility] Appointment Type:URO Office Visit [facility] evaldlauyr note* Diagnosis Type 2 diabetes mellitus with unspecified complications ([facility]) Edema, unspecified Edema documented in this encounter [...] History sepsis 2010 Hospitalization History SEE ABOVE [facility] Other Hospital course Narrative No data available for this section [facility] progress note No data available for this section [facility] reason for referral (narrative) , Referral to Dr. 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 Advance Directives and Living Will Power of Propagation Manager Summary Purpose Family History No Family History Records FoundNo Family History Records FoundNo Family History Records FoundNo Family History Records FoundNo Family History Records FoundNo Family History Records Found Additional Source Comments INFORMATION SOURCE (unrecogn ized section and content) DATE CREATED AUTHOR 10/30/2019 [facility] DATE CREATED AUTHOR AUTHOR'S ORGANIZ ATION 09/15/2020 [facility] DATE CREATED AUTHOR AUTHOR'S ORGANIZ ATION 11/16/2022 [facility] DATE CREATED AUTHOR AUTHOR'S ORGANIZ ATION 12/19/2022 [facility] DATE CREATED AUTHOR AUTHOR'S ORGANIZ ATION 11/16/[address] 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 [employer] provides no warranty or guarantee of the accuracy or completeness of information in this document.
--- NOTE | 2024-01-03 14:37 | P.CN_ITS ---
Consult Note: HPI Data of Consult Patient: known to practice within the last 3 years Requesting Physician: Angela Cochran NP Primary Care Provider: Mckayla Blas NP Consult Narrative Reason for consult: f/u Narrative: Mitzi Macias a pleasant 52 year old female presents for evaluation and management of low back and right hip pain. Today pain 8/10. Describes it as an aching pain in low back, sharp in right hip, pain increased with standing, walking, transitioning, stairs. Tolerating current medication regimen well without side effects. Recently underwent bilateral L4-5 L5-S1 facet joint RFA with 50% improvement in axial low back pain ongoing per patient. cc:: CC: Angela Cochran NP Review of Systems ROS Status of ROS 10 or more systems reviewed and unremark able except as noted in history and below Musculoskeletal Reports: back pain and joint pain PFSH PFSH Medical History Hypertension ?I10 - Essential (primary) hypertension (ICD-10) Obesity ?E66.9 - Obesity, unspecified (ICD-10) Amputation toe ?S98.139A - Complete traumatic amputation of one unspecified lesser toe, initial encounter (ICD-10) Neuropathy ?G62.9 - Polyneuropathy, unspecified (ICD-10) Acid reflux ?K21.9 - Gastro-esophageal reflux disease without esophagitis (ICD-10) Diabetes ?E11.9 - Type 2 diabetes mellitus without complications (ICD-10) COPD (chronic obstructive pulmonary disease) ?J44.9 - Chronic obstructive pulmonary disease, unspecified (ICD-10) Asthma ?J45.909 - Unspecified asthma, uncomplicated (ICD-10) High cholesterol ?E78.00 - Pure hypercholesterolemia, unspecified (ICD-10) Surgical History History of hammertoe correction ?Z98.890 - Other specified postprocedural states (ICD-10) ?Z87.39 - Personal history of other diseases of the musculoskeletal system and connective tissue (ICD-10) Hx of cholecystectomy ?Z90.49 - Acquired absence of other specified parts of digestive tract (ICD- 10) History of hysterectomy ?Z90.710 - Acquired absence of both cervix and uterus (ICD-10) Social History Within the past year, how often did you have a drink containing alcohol: never Score interpretation: A score less than 3 is consistent with normal alcohol consumption. Smoking status: Former smoker Highest level of school completed/degree received: Associate degree: occupational, technical, vocational program Meds Home Medications and Allergies Home Medications ?Medication ?Instructions ?Recorded ?Confirmed ?Type acetaminophen 500 mg capsule 1,000 mg PO Q6H PRN fever or pain 03/20/23 11/27/23 History amitriptyline 25 mg tablet 25 mg PO DAILY 03/20/23 11/27/23 History aspirin 81 mg tablet,delayed 81 mg PO DAILY 03/20/23 11/27/23 History release (Adult Aspirin Regimen) budesonide-formoterol HFA 160 2 inh inhalation BID 03/20/23 11/27/23 History mcg-4.5 mcg/actuation aerosol inhaler (Symbicort) furosemide 40 mg tablet 40 mg PO DAILY 03/20/23 11/27/23 History insulin aspart U-100 100 unit/mL 1 sliding scale dose subcut 03/20/23 11/27/23 History (3 mL) subcutaneous pen (Novolog USEASDIRECTD FlexPen U-100 Insulin aspart) insulin glargine 100 unit/mL 58 unit subcut BID 03/20/23 11/27/23 History subcutaneous solution (Lantus U-100 Insulin) lisinopril 20 mg tablet 20 mg PO DAILY 03/20/23 11/27/23 History omeprazole 20 mg capsule,delayed 20 mg PO DAILY 03/20/23 11/27/23 History release pregabalin 300 mg capsule 300 mg PO Q12H 03/20/23 11/27/23 History duloxetine 60 mg capsule,delayed 60 mg PO BID #60 caps 04/05/23 11/27/23 Rx release hydrocodone 5 mg-acetaminophen 325 1 tab PO TID PRN pain #90 tabs 09/04/23 11/27/23 Rx mg tablet dapagliflozin propanediol 10 mg 10 mg PO .QD 09/10/23 11/27/23 History tablet ergocalciferol (vitamin D2) 1,250 50,000 unit PO QWEEK 09/10/23 11/27/23 History mcg (50,000 unit) capsule potassium chloride 10 mEq 10 meq PO .QD 09/10/23 11/27/23 History capsule,extended release simvastatin 10 mg tablet 10 mg PO QAM 09/10/23 11/27/23 History hydralazine 25 mg tablet 25 mg PO BID #60 tabs 09/13/23 11/27/23 Rx oseltamivir 75 mg capsule 75 mg PO BID #6 caps 09/13/23 11/27/23 Rx hydrocodone 5 mg-acetaminophen 325 1 tab PO TID PRN pain #90 tabs 11/08/23 11/27/23 Rx mg tablet hydrocodone 5 mg-acetaminophen 325 1 tab PO TID PRN pain #90 tabs 12/06/23 Rx mg tablet Allergies Allergy/AdvReac Type Severity Reaction Status Date / Time No Known Drug Allergies Allergy Verified 11/27/23 09:57 Exam Constitutional Documenting provider has reviewed patient's vital signs: yes Common normals: no apparent distress, oriented x3, healthy appearing, alert and well nourished General appearance: cooperative HENMT Common normals: normocephalic, hearing grossly normal bilaterally and moist oral mucous membranes Head and scalp: normocephalic Eye Common normals: PERRL Pupil: PERRL Neck & C-Spine Common normals: full ROM General: normal visual inspection Chest Common normals: inspection of chest normal Respiratory Common normals: normal respiratory effort, no retractions and no use of accessory muscles Back & Pelvis Thoracic spine/upper back: ROM limited and pain with ROM Lumbar spine/lower back: ROM limited and pain with ROM Other: bilateral hip pain right> left bilateral facet loading pain over l4-5 l5-s1 facets Extremity Common normals: normal to inspection Neuro Common normals: oriented x3, CN's II-XII intact bilaterally, moves all extremities, no focal motor deficits, no sensory deficits noted and deep tendon reflexes 2+ bilaterally Sensorium/orientation: alert Gait (neuro): assistive device used other (wheelchair) Motor exam: strength 5/5 throughout and no movement abnormalities noted Psych Common normals: mental status grossly normal, thought process normal, cooperative, affect normal, speech normal and activity/motor behavior normal Speech: normal speech Thought process: normal thought process Results Additional Findings Additional findings: If on a controlled substance or opioids, I have checked an [place] report on this patient and there are no aberrancies noted in the prescribing history.??If on a controlled substance or opioid a drug screen was completed and reviewed within the last year, and if there has not been a drug screen completed we ordered one today to monitor higher risk, state monitored pain medication use. As part of providing excellent, safe, comprehensive care, the following was completed at our patient's visit: 1. A medication reconciliation and review to ensure accurate knowledge of current/active medications, including asking our patients to inform us about any [id number] medications or herbal remedies/nutritional supplements/alternative remedies. 2. A review to specifically ensure our patients have had annual screening for screening for depression, screening for tobacco use, and screening for unhealthy alcohol use. For concerning screenings had a discussion with the patient, provided patient education, and recommended follow-up with primary care provider when appropriate. If patient noted with a risk of falling, they received education on strength, gait, and balance training to prevent future risk of falling. Assessment and Plan Assessment and Plan (1) Lumbar spondylosis: (2) Chronic pain syndrome: (3) Osteoarthritis: (4) Hypertension: Assessment and Plan: Blood pressure is elevated today. No signs or symptoms of [place]/CVA including chest pain, SOB, left sided acute neck, arm, or jaw pain (separate from chronic pain complaint), diaphoresis, facial drooping, new acute neuro changes in both upper and lower extremities (other than those mentioned in the note above). Recommend follow up with PCP for further evaluation and treatment.? Qualifiers: Hypertension type: unspecified Qualified Code(s): I10 - Essential (primary) hypertension (5) Obesity: Assessment and Plan: The patient was counseled that proper dietary changes and consistent participation in a home exercise plan can lead to weight loss. Weight loss can help to improve functionality in patients with chronic pain.? Qualifiers: Obesity type: due to excess calories Obesity classification: adult class 3 (BMI >= 40) Serious obesity comorbidity presence: with serious comorbidity Body mass index: BMI 50.0-59.9 Qualified Code(s): E66.01 - Morbid (severe) obesity due to excess calories; Z68.43 - Body mass index [BMI] 50.0- 59.9, adult (6) Chronic prescription opiate use: Assessment and Plan: I feel these medications are improving the patient's quality of life and allow them to tolerate activities of daily living as well as participate in recreational activity.? The patient does not report intolerable side effects. The patient is NOT opioid naive and non-pharmacologic and non-opioid treatment has failed to significantly relieve the patient's pain and improve functionality. The patient has a diagnosis that is related to a somatic or visceral pain etiology. ? ?? I reviewed with the patient the potential risks and side effects with the use of? opioid medications including but not limited to respiratory depression,? sedation, and even . I verified the patient has access to naloxone should? these effects occur. I advised the patient to avoid the use of any other? sedation substances including alcohol, THC, and benzodiazepines while? taking opioid medications due to the risk of compounding side effects and? detrimental outcomes. I reviewed the [employer], pain treatment agreement, urine? drug screen, and opioid start talking forms. The patient was advised to let? their family know they had Naloxone in case they would need to administer? the medication.? ?? A drug screen was completed within the last year, and no aberrancies were noted regarding their use of controlled substances. The patient understands they are subject to the terms and conditions of the pain contract that they have signed. ? ?? I have checked an [place] report on this patient today and there are no aberrancies noted in the prescribing history.? (7) Osteoarthritis of hip: Qualifiers: Osteoarthritis type: unspecified Laterality: unspecified laterality Qualified Code(s): M16.9 - Osteoarthritis of hip, unspecified (8) Chronic right hip pain: Plan bilateral L4-5 L5-S1 facet medial branch thermal RFA providing >50% improvement ongoing continue HEP as tolerated continue current medications, tolerating well without side effects. risks vs benefits discussed. annel previously prescribed non surgical for right hip OA due to obesity, continues to work on weight loss at this time f/u 3 months, sooner if needed
== END 2024-01-03 13:55 | disposition home or self-care (01) ==
LOC: PM 13:55
PROVIDERS: PCP Nurse Practitioner; Visit Provider Nurse Practitioner
DX: M47.816 Spondylosis without myelopathy or radiculopathy, lumbar region (principal); G89.4 Chronic pain syndrome; M19.90 Unspecified osteoarthritis, unspecified site; I10 Essential (primary) hypertension; E66.9 Obesity, unspecified; Z79.899 Other long term (current) drug therapy; M16.0 Bilateral primary osteoarthritis of hip; M25.551 Pain in right hip
CPT/HCPCS: G0463

== ENCOUNTER 2024-04-04 18:13 | Emergency (ER) | payer MEDICARE, OTHER, SELFPAY ==
[2024-04-04 18:18] VITALS: BP 154/86; PULSE 87; TEMP 37; O2SAT 94; BMI 54.9
--- OUTSIDE RECORDS SUMMARY | 2024-04-04 18:26 | XMS_ITS | CCD ---
Author Organization [facility] Care Team Providers Care Cafeteria Supervisor Name Role Phone James Desouza Primary Care Provider [phone] JAMES DESOUZA Primary Care Unavailable SHENDGE, VITHAL Admitting Unavailable SHENDGE, VITHAL Attending Unavailable AICHHOLZ, MCKAYLA Primary Care Unavailable AICHHOLZ, MCKAYLA Referring Unavailable AICHHOLZ, MCKAYLA J Primary Care Physician Tico, Stephanie Unavailable OLE RAMIREZ Attending Unavailable OLE RAMIREZ Consulting Unavailable AICHHOLZ, SIZING MACHINE AND DRIER OPERATOR MCKAYLA Primary Care Unavailable OLE RAMIREZ Admitting Unavailable ANTONY SHRESTHA Consulting Unavailable ALONDRA ., UMBERTO Admitting Unavailable ALONDRA ., UMBERTO Attending Unavailable AICHHOLZ, SIZING MACHINE AND DRIER OPERATOR MCKAYLA Primary Care Unavailable AFSANEH Loera, DR BOLANOS Consulting Unavailable MARYANNE POWER Consulting Unavailable GLENN KERR Consulting Unavailable YOMAIRA KERR Consulting Unavailable HATTIE GOFF Consulting Unavailable ALONDRA ., UMBERTO Consulting Unavailable TICO, STEPHANIE Attending Unavailable TICO, STEPHANIE Consulting Unavailable AICHHOLZ, SIZING MACHINE AND DRIER OPERATOR MCKAYLA Primary Care Unavailable TICO, STEPHANIE Admitting Unavailable REGLA ., DR DUMONT Admitting Unavailable AICHHOLZ, SIZING MACHINE AND DRIER OPERATOR MCKAYLA Primary Care Unavailable REGLA ., DR DUMONT Attending Unavailable VARGAS ., DR DUMONT Consulting Unavailable COLLIN HUERTAS Consulting Unavailable CECILIA KAUFMAN Admitting Unavailable CECILIA KAUFMAN Attending Unavailable AICHHOLZ, SIZING MACHINE AND DRIER OPERATOR MCKAYLA Primary Care Unavailable RAFAEL GONGORA Attending Unavailable RAFAEL GONGORA Admitting Unavailable AICHHOLZ, SIZING MACHINE AND DRIER OPERATOR MCKAYLA Primary Care Unavailable AICHHOLZ, SIZING MACHINE AND DRIER OPERATOR MCKAYLA Admitting Unavailable AICHHOLZ, SIZING MACHINE AND DRIER OPERATOR MCKAYLA Primary Care Unavailable AICHHOLZ, SIZING MACHINE AND DRIER OPERATOR MCKAYLA Attending Unavailable AICHHOLZ, SIZING MACHINE AND DRIER OPERATOR MCKAYLA Consulting Unavailable LAKSHMIPATHY ., NARENDRANATH Attending Anette vailable LAKSHMIPATHY ., NARENDRANATH Consulting Anette vailable LAKSHMIPATHY ., NARENDRANATH Admitting Anette vailable AICHHOLZ, SIZING MACHINE AND DRIER OPERATOR MCKAYLA Primary Care Unavailable VALENZUELA ., GIL Consulting Unavailable MORTENSEN ., DR CHAPARRO Aguillon Attending Unavailable MORTENSEN ., DR CHAPARRO Aguillon Admitting Unavailable AICHHOLZ, SIZING MACHINE AND DRIER OPERATOR MCKAYLA Primary Care Unavailable VALENZUELA ., GIL Consulting Unavailable MORTENSEN ., DR CHAPARRO Aguillon Admitting Unavailable AICHHOLZ, SIZING MACHINE AND DRIER OPERATOR MCKAYLA Primary Care Unavailable MORTENSEN ., DR CHAPARRO Aguillon Attending Unavailable HALKER ., SUBHASH Consulting Unavailable LAKSHMIPATHY ., NARENDRANATH Admitting Anette vailable LAKSHMIPATHY ., NARENDRANATH Attending Anette vailable AICHHOLZ, SIZING MACHINE AND DRIER OPERATOR MCKAYLA Primary Care Unavailable MORTENSEN ., DR CHAPARRO Aguillon Attending Unavailable MORTENSEN ., DR CHAPARRO Aguillon Admitting Unavailable VALENZUELA ., GIL Consulting Unavailable AICHHOLZ, SIZING MACHINE AND DRIER OPERATOR MCKAYLA Primary Care Unavailable VALENZUELA ., GIL Consulting Unavailable MORTENSEN ., DR CHAPARRO Aguillon Attending Unavailable MORTENSEN ., DR CHAPARRO Aguillon Admitting Unavailable AICHHOLZ, SIZING MACHINE AND DRIER OPERATOR MCKAYLA Primary Care Unavailable HATTIE BRODERICK Attending Unavailable HATTIE BRODERICK Admitting Unavailable AICHHOLZ, SIZING MACHINE AND DRIER OPERATOR MCKAYLA Primary Care Unavailable AICHHOLZ, SIZING MACHINE AND DRIER OPERATOR MCKAYLA Admitting Unavailable AICHHOLZ, SIZING MACHINE AND DRIER OPERATOR MCKAYLA Consulting Unavailable AICHHOLZ, SIZING MACHINE AND DRIER OPERATOR MCKAYLA Primary Care Unavailable AICHHOLZ, SIZING MACHINE AND DRIER OPERATOR MCKAYLA Attending Unavailable AICHHOLZ, SIZING MACHINE AND DRIER OPERATOR MCKAYLA Primary Care Unavailable MISC, DR LESLIE Admitting Unavailable MISC, DR LESLIE Attending Unavailable MISC, DR LESLIE Consulting Unavailable DIAB ., MARIANO Admitting Unavailable DIAB ., MARIANO Attending Unavailable DIAB ., MARIANO Consulting Unavailable AICHHOLZ, SIZING MACHINE AND DRIER OPERATOR MCKAYLA Primary Care Unavailable RASTEGAR, RICCO Consulting Unavailable AICHHOLZ, SIZING MACHINE AND DRIER OPERATOR MCKAYLA Admitting Unavailable AICHHOLZ, SIZING MACHINE AND DRIER OPERATOR MCKAYLA Primary Care Unavailable AICHHOLZ, SIZING MACHINE AND DRIER OPERATOR MCKAYLA Attending Unavailable AICHHOLZ, SIZING MACHINE AND DRIER OPERATOR MCKAYLA Consulting Unavailable DR PATRICIA IVAN Consulting Unavailable TAMLYN ., CECILIA Attending Unavailable TAMLYN ., CECILIA Admitting Unavailable DR PATRICIA IVAN Consulting Unavailable AICHHOLZ, SIZING MACHINE AND DRIER OPERATOR MCKAYLA Primary Care Unavailable TAMLYN ., CECILIA Consulting Unavailable MORTENSEN ., DR CHAPARRO Aguillon Attending Unavailable FESTUS ., DR CHAPARRO Aguillon Consulting Unavailable FESTUS ., DR CHAPARRO Aguillon Admitting Unavailable AICHHOLZ, SIZING MACHINE AND DRIER OPERATOR MCKAYLA Primary Care Unavailable HATTIE BRODERICK Attending Unavailable HATTIE BRODERICK Consulting Unavailable HATTIE BRODERICK Admitting Unavailable AICHHOLZ, SIZING MACHINE AND DRIER OPERATOR MCKAYLA Primary Care Unavailable HATTIE BAUTISTA Unavailable AICHHOLZ, SIZING MACHINE AND DRIER OPERATOR MCKAYLA Admitting Unavailable AICHHOLZ, SIZING MACHINE AND DRIER OPERATOR MCKAYLA Attending Unavailable AICHHOLZ, SIZING MACHINE AND DRIER OPERATOR MCKAYLA Consulting Unavailable AICHHOLZ, SIZING MACHINE AND DRIER OPERATOR MCKAYLA Primary Care Unavailable Ty Amin MD Primary Care Provider BHARAT AGUILAR Attending Unavailable AICHHOLZ, MCKAYLA Attending Unavailable AICHHOLZ, MCKAYLA Attending Unavailable AICHHOLZ, MCKAYLA Attending Unavailable AICHHOLZ, MCKAYLA Attending Unavailable AICHHOLZ, MCKAYLA Attending Unavailable SARAH VEGA Attending Unavailable Allergies Allergy Classification Reported Allergen(s) Allergy Type Date of Onset Reaction(s) Facility (1 source) No Known Medication Allergies; 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: [No Known Medication Allergies] Propensity to adverse reactions (disorder) [facility] Repository Medications Current Medications Medication Drug Class(es) Dates Sig (Normalized) Sig (Original) acetaminophen 325 mg / HYDROcodone bitartrate 5 mg oral tablet (6 sources) Opioid Agonist Start: 02-06-2022 acetaminophen-hydr ocodone 325 mg-5 mg oral tablet Refill(s) 0 Start Date: 02/06/22 Status: Ordered HYDROcodone-acet aminophen ([place]) 5-325 MG tablet 1 tablet 3 (three) times a day as needed for severe pain. 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 Unclassified (1 source) COLLEGE RECRUITER INJECT NONINSULN ANTIDIAB; 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: [RETIREMENT INJECT NONINSULN ANTIDIAB] Onset: 12-05-2022 Unclassified (3 [...] Range Facility Office Visiton 11-14-2023 Follow-up visit [id number] Mitzi Macias 1970 F Date Provider Department Center 11/14/2023 BHARAT NICOLE [facility] Family History Problem Relation Age of Onset Heart attack Paternal Grandmother Family Status - Relation Status Age at Paternal Grandmother Level of Service:43709 NM OFFICE/OUTPATIENT NEW LOW MDM 30 MINUTES Normal [facility] CBC AUTO DIFFon 12-06-2022 BASO # 0.0 103/ul Normal 0.0-0.1 [facility] Comment on above: Performed By: #### C BC #### [facility] [address] [place] [address] Dr. Ashlie Hills Basophils/100 WBC (Bld) 0.1 % Critically low 0.2-2.0 [facility] Comment on above: Performed By: #### C BC #### [facility] [address] [place] [address] Dr. Ashlie Hills EO # 0.0 103/ul Normal 0.0-0.7 [facility] Comment on above: Performed By: #### C BC #### [facility] [address] [place] [address] Dr. Ashlie Hills Eosinophils/100 WBC (Bld) 0.0 % Critically low 0.9-7.0 [facility] Comment on above: Performed By: #### C BC #### [facility] [address] [place] [address] Dr. Ashlie Hills Erythrocyte distribution width (RBC) [Ratio] 14.9 % Normal 11.0-15.0 [facility] Comment on above: Performed By: #### C BC #### [facility] [address] [place] [address] Dr. Ashlie Hills Hematocrit (Bld) [Volume fraction] 46.2 % Normal 36.0-48.0 [facility] Comment on above: Performed By: #### C BC #### [facility] [address] [place] [address] Dr. Ashlie Hills Hemoglobin (Bld) [Mass/Vol] 14.7 g/dL Normal 12.0-16.0 [facility] Comment on above: Performed By: #### C BC #### [facility] [address] [place] [address] Dr. Ashlie Hills IG # 0.06 10e3/ul Critically high 0.00-0.03 [facility] Comment on above: Performed By: #### C BC #### [facility] [address] [place] [address] Dr. Ashlie Hills IG % 0.4 % Normal 0.0-0.5 [facility] Comment on above: Performed By: #### C BC #### [facility] [address] [place] [address] Dr. Ashlie Hills LYMPH # 1.3 103/ul Normal 1.2-3.8 [facility] Comment on above: Performed By: #### C BC #### [facility] [address] [place] [address] Dr. Ashlie Hills Lymphocytes/100 WBC (Bld) 9.4 % Critically low 20.5-60.0 [facility] Comment on above: Performed By: #### C BC #### [facility] [address] [place] [address] Dr. Ashlie Hills MANUAL DIFF REQ NO Normal [facility] Comment on above: Performed By: #### C BC #### [facility] [address] [place] [address] Dr. Ashlie Hills MCH (RBC) [Entitic mass] 28.4 pg Normal 26.7-34.0 [facility] Comment on above: Performed By: #### C BC #### [facility] [address] [place] [address] Dr. Ashlie Hills MCHC (RBC) [Mass/Vol] 31.8 g/dL Normal 29.9-35.2 [facility] Comment on above: Performed By: #### C BC #### [facility] [address] [place] [address] Dr. Ashlie Hills MCV (RBC) [Entitic vol] 89.4 fL Normal 81.0-99.0 [facility] Comment on above: Performed By: #### C BC #### [facility] [address] [place] [address] Dr. Ashlie Hills MONO # 0.5 103/ul Normal 0.3-0.8 [facility] Comment on above: Performed By: #### C BC #### [facility] [address] [place] [address] Dr. Ashlie Hills Monocytes/100 WBC (Bld) 3.4 % Normal 1.7-12.0 [facility] Comment on above: Performed By: #### C BC #### [facility] [address] [place] [address] Dr. Ashlie Hills NEUT # 11.8 103/ul Critically high 1.4-6.5 [facility] Comment on above: Performed By: #### C BC #### [facility] [address] [place] [address] Dr. Ashlie Hills Neutrophils/100 WBC (Bld) 86.7 % Critically high 43.0-75.0 [facility] Comment on above: Performed By: #### C BC #### [facility] [address] [place] [address] Dr. Ashlie Hills Platelet mean volume (Bld) [Entitic vol] 12.6 fL Normal 9.5-13.5 [facility] Comment on above: Performed By: #### C BC #### [facility] [address] [place] [address] Dr. Ashlie Hills PLT 133 103/ul Critically low 150-450 [facility] Comment on above: Performed By: #### C BC #### [facility] [address] [place] [address] Dr. Ashlie Hills RBC 5.17 106/ul Normal 4.20-5.40 [facility] Comment on above: Performed By: #### C BC #### [facility] [address] [place] [address] Dr. Ashlie Hills WBC 13.6 103/ul Critically high 4.0-11.0 [facility] Comment on above: Performed By: #### C BC #### [facility] [address] [place] [address] Dr. Ashlie Hills MAGNESIUMon 12-06-2022 Magnesium [Mass/Vol] 2.2 mg/dL Normal 1.8-2.4 [facility] Comment on above: Performed By: #### I NFLUAB #### [facility] [address] [place] [address] Dr. Ashlie Hills POINT OF CARE GLUCOSEon 11-08 Glucose [Mass/Vol] 340 mg/dL Critically high 74-106 [facility] Comment on above: Performed By: #### P OCGLUC #### [facility] [address] [place] [address] Dr. Ashlie Hills Glucose [Mass/Vol] 276 mg/dL Critically high 74-106 [facility] Comment on above: Performed By: #### C BC #### [facility] [address] [place] [address] Dr. Ashlie Hills Glucose [Mass/Vol] 333 mg/dL Critically high 74-106 [facility] Comment on above: Performed By: #### C BC #### [facility] [address] [place] [address] Dr. Ashlie Hills PROF CHEM 8 (BAS METB)on Anion gap [Moles/Vol] 10.9 mmol/L Normal [facility] Comment on above: Performed By: #### I NFLUAB #### [facility] [address] [place] [address] Dr. Ashlie Hills Calcium [Mass/Vol] 9.3 mg/dL Normal 8.5-10.1 [facility] Comment on above: Performed By: #### I NFLUAB #### [facility] [address] [place] [address] Dr. Ashlie Hills Chloride [Moles/Vol] 103 mmol/L Normal 98-107 [facility] Comment on above: Performed By: #### I NFLUAB #### [facility] [address] [place] [address] Dr. Ashlie Hills CO2 [Moles/Vol] 31.2 mmol/L Normal 21.0-32.0 [facility] Comment on above: Performed By: #### I NFLUAB #### [facility] [address] [place] [address] Dr. Ashlie Hills Creatinine [Mass/Vol] 0.96 mg/dL Normal 0.55-1.02 [facility] Comment on above: Performed By: #### I NFLUAB #### [facility] [address] [place] [address] Dr. Ashlie Hills EGFR-AF SINGAPOREAN >60 Normal >=60 [facility] Comment on above: Performed By: #### I NFLUAB #### [facility] [address] [place] [address] Dr. Ashlie Hills EGFR-NON AF SINGAPOREAN >60 Normal >=60 [facility] Comment on above: Performed By: #### I NFLUAB #### [facility] [address] [place] [address] Dr. Ashlie Hills Glucose [Mass/Vol] 288 mg/dL Critically high 74-106 [facility] Comment on above: Performed By: #### I NFLUAB #### [facility] [address] [place] [address] Dr. Ashlie Hills Potassium [Moles/Vol] 5.1 mmol/L Normal 3.5-5.1 [facility] Comment on above: Performed By: #### I NFLUAB #### [facility] [address] [place] [address] Dr. Ashlie Hills Sodium [Moles/Vol] 140 mmol/L Normal 136-145 [facility] Comment on above: Performed By: #### I NFLUAB #### [facility] [address] [place] [address] Dr. Ashlie Hills Urea nitrogen [Mass/Vol] 30.0 mg/dL Critically high 7.0-18.0 [facility] Comment on above: Performed By: #### I NFLUAB #### [facility] [address] [place] [address] Dr. Ashlie Hills Urea nitrogen/Creatinine [Mass ratio] 31.2 mg/mg Normal [facility] Comment on above: Performed By: #### I NFLUAB #### [facility] [address] [place] [address] Dr. Ashlie Hills CBC AUTO DIFFon 12-05-2022 BASO # 0.0 103/ul Normal 0.0-0.1 [facility] Comment on above: Performed By: #### C BC #### [facility] [address] [place] [address] Dr. Ashlie Hills Basophils/100 WBC (Bld) 0.4 % Normal 0.2-2.0 [facility] Comment on above: Performed By: #### C BC #### [facility] [address] [place] [address] Dr. Ashlie Hills EO # 0.0 103/ul Normal 0.0-0.7 [facility] Comment on above: Performed By: #### C BC #### [facility] [address] [place] [address] Dr. Ashlie Hills Eosinophils/100 WBC (Bld) 0.0 % Critically low 0.9-7.0 [facility] Comment on above: Performed By: #### C BC #### [facility] [address] [place] [address] Dr. Ashlie Hills Erythrocyte distribution width (RBC) [Ratio] 14.8 % Normal 11.0-15.0 [facility] Comment on above: Performed By: #### C BC #### [facility] [address] [place] [address] Dr. Ashlie Hills Hematocrit (Bld) [Volume fraction] 49.9 % Critically high 36.0-48.0 [facility] Comment on above: Performed By: #### C BC #### [facility] [address] [place] [address] Dr. Ashlie Hills Hemoglobin (Bld) [Mass/Vol] 15.7 g/dL Normal 12.0-16.0 [facility] Comment on above: Performed By: #### C BC #### [facility] [address] [place] [address] Dr. Ashlie Hills IG # 0.04 10e3/ul Critically high 0.00-0.03 [facility] Comment on above: Performed By: #### C BC #### [facility] [address] [place] [address] Dr. Ashlie Hills IG % 0.5 % Normal 0.0-0.5 [facility] Comment on above: Performed By: #### C BC #### [facility] [address] [place] [address] Dr. Ashlie Hills LYMPH # 1.1 103/ul Critically low 1.2-3.8 [facility] Comment on above: Performed By: #### C BC #### [facility] [address] [place] [address] Dr. Ashlie Hills Lymphocytes/100 WBC (Bld) 12.7 % Critically low 20.5-60.0 [facility] Comment on above: Performed By: #### C BC #### [facility] [address] [place] [address] Dr. Ashlie Hills MANUAL DIFF REQ NO Normal [facility] Comment on above: Performed By: #### C BC #### [facility] [address] [place] [address] Dr. Ashlie Hills MCH (RBC) [Entitic mass] 28.1 pg Normal 26.7-34.0 [facility] Comment on above: Performed By: #### C BC #### [facility] [address] [place] [address] Dr. Ashlie Hills MCHC (RBC) [Mass/Vol] 31.5 g/dL Normal 29.9-35.2 [facility] Comment on above: Performed By: #### C BC #### [facility] [address] [place] [address] Dr. Ashlie Hills MCV (RBC) [Entitic vol] 89.3 fL Normal 81.0-99.0 [facility] Comment on above: Performed By: #### C BC #### [facility] [address] [place] [address] Dr. Ashlie Hills MONO # 0.1 103/ul Critically low 0.3-0.8 [facility] Comment on above: Performed By: #### C BC #### [facility] [address] [place] [address] Dr. Ashlie Hills Monocytes/100 WBC (Bld) 1.3 % Critically low 1.7-12.0 [facility] Comment on above: Performed By: #### C BC #### [facility] [address] [place] [address] Dr. Ashlie Hills NEUT # 7.2 103/ul Critically high 1.4-6.5 [facility] Comment on above: Performed By: #### C BC #### [facility] [address] [place] [address] Dr. Ashlie Hills Neutrophils/100 WBC (Bld) 85.1 % Critically high 43.0-75.0 [facility] Comment on above: Performed By: #### C BC #### [facility] [address] [place] [address] Dr. Ashlie Hills Platelet mean volume (Bld) [Entitic vol] 12.2 fL Normal 9.5-13.5 [facility] Comment on above: Performed By: #### C BC #### [facility] [address] [place] [address] Dr. Ashlie Hills PLT 116 103/ul Critically low 150-450 [facility] Comment on above: Performed By: #### C BC #### [facility] [address] [place], [place] [address] Dr. Ashlie Hills RBC 5.59 106/ul Critically high 4.20-5.40 [facility] Comment on above: Performed By: #### C BC #### [facility] [address] [id number] Ashlie Hills WBC 8.5 103/ul Normal 4.0-11.0 [facility] Comment on above: Performed By: #### C BC #### [facility] [address] [place], [place] [address] Dr. Ashlie Hills CTA CHEST WO W [...] by: HATTIE GOFF Date: 2022-12-05 01:52 Normal [facility] MAGNESIUMon 12-05-2022 Magnesium [Mass/Vol] 2.1 mg/dL Normal 1.8-2.4 [facility] Comment on above: Performed By: #### P OCGLUC #### [facility] [address] [place] [address] [address] Ashlie Hills POINT OF CARE GLUCOSEon 11-08 Glucose [Mass/Vol] 293 mg/dL Critically high 74-106 [facility] Comment on above: Performed By: #### P OCGLUC #### [facility] [address] [place] [address] Dr. Ashlie Hills Glucose [Mass/Vol] 269 mg/dL Critically high -106 [facility] Comment on above: Performed By: #### P OCGLUC #### [facility] [address] [address] [address] Ashlie Hills Glucose [Mass/Vol] 223 mg/dL Critically high -106 [facility] Comment on above: Performed By: #### C VDAGS #### [facility] [address] [place] [address] Dr. Ashlie Hills PROF CHEM 8 (BAS METB)on Anion gap [Moles/Vol] 11.6 mmol/L Normal [facility] Comment on above: Performed By: #### P OCGLUC #### [facility] [address] [place] [address] Dr. Ashlie Hills Calcium [Mass/Vol] 9.2 mg/dL Normal 8.5-10.1 [facility] Comment on above: Performed By: #### P OCGLUC #### [facility] [address] [place] [address] Dr. Ashlie Hills Chloride [Moles/Vol] 102 mmol/L Normal 98-107 [facility] Comment on above: Performed By: #### P OCGLUC #### [facility] [address] [place] [address] Dr. Ashlie Hills CO2 [Moles/Vol] 28.7 mmol/L Normal 21.0-32.0 [facility] Comment on above: Performed By: #### P OCGLUC #### [facility] [address] [address] [address] Ashlie Hills Creatinine [Mass/Vol] 1.04 mg/dL Critically high 0.55-1.02 [facility] Comment on above: Performed By: #### P OCGLUC #### [facility] [address] [address] [address] Ashlie Hills EGFR-AF SINGAPOREAN >60 Normal >=60 [facility] Comment on above: Performed By: #### P OCGLUC #### [facility] [address] [address] [address] Ashlie Hills EGFR-NON AF SINGAPOREAN 56 mL/min/1.73m2 Critically low >=60 [facility] Comment on above: Performed By: #### P OCGLUC #### [facility] [address] [address] [address] Ashlie Hills Glucose [Mass/Vol] 231 mg/dL Critically high 74-106 [facility] Comment on above: Performed By: #### P OCGLUC #### [facility] [address] [address] [address] Ashlie Hills Potassium [Moles/Vol] 4.3 mmol/L Normal 3.5-5.1 [facility] Comment on above: Performed By: #### P OCGLUC #### [facility] [address] [address] [address] Ashlie Hills Sodium [Moles/Vol] 138 mmol/L Normal 136-145 [facility] Comment on above: Performed By: #### P OCGLUC #### [facility] [address] [address] [address] Ashlie Hills Urea nitrogen [Mass/Vol] 17.0 mg/dL Normal 7.0-18.0 [facility] Comment on above: Performed By: #### P OCGLUC #### [facility] [address] [address] [address] Ashlie Hills Urea nitrogen/Creatinine [Mass ratio] 16.3 mg/mg Normal [facility] Comment on above: Performed By: #### P OCGLUC #### [facility] [address] [place] [address] Dr. Ashlie Hills RESPIRATORY PANEL PLUSon Adenovirus Not detected Normal NOT DETECTED [facility] Comment on above: Performed By: #### C VDAGS #### [facility] [address] [place] [address] Dr. Ashlie Hills B. Parapertusis Not detected Normal NOT DETECTED [facility] Comment on above: Performed By: #### C VDAGS #### [facility] [address] [place] [address] Dr. Ashlie Hills B. Pertussis Not detected Normal NOT DETECTED [facility] Comment on above: Performed By: #### C VDAGS #### [facility] [address] [place] [address] Dr. Ashlie Hills Chlamydia Pneumoniae Not detected Normal NOT DETECTED [facility] Comment on above: Performed By: #### C VDAGS #### [facility] [address] [place] [address] Dr. Ashlie Hills Coronavirus 229E Not detected Normal NOT DETECTED [facility] Comment on above: Performed By: #### C VDAGS #### [facility] [address] [place] [address] Dr. Ashlie Hills Coronavirus HKU1 Not detected Normal NOT DETECTED [facility] Comment on above: Performed By: #### C VDAGS #### [facility] [address] [place] [address] Dr. Ashlie Hills Coronavirus NL63 Not detected Normal NOT DETECTED [facility] Comment on above: Performed By: #### C VDAGS #### [facility] [address] [place] [address] Dr. Ashlie Hills Coronavirus OC43 Not detected Normal NOT DETECTED [facility] Comment on above: Performed By: #### C VDAGS #### [facility] [address] [place] [address] Dr. Ashlie Hills Influenza A H1 Not detected Normal NOT DETECTED [facility] Comment on above: Performed By: #### C VDAGS #### [facility] [address] [place] [address] Dr. Ashlie Hills Influenza A H1 2009 Not detected Normal NOT DETECTED [facility] Comment on above: Performed By: #### C VDAGS #### [facility] [address] [address] [address] Ashlie Hills Influenza A H3 Not detected Normal NOT DETECTED [facility] Comment on above: Performed By: #### C VDAGS #### [facility] [address] [address] [address] Ashlie Hills Influenza B Not detected Normal NOT DETECTED [facility] Comment on above: Performed By: #### C VDAGS #### [facility] [address] [place] [address] Dr. Ashlie Hills Metapneumovirus Not detected Normal NOT DETECTED [facility] Comment on above: Performed By: #### C VDAGS #### [facility] [address] [place] [address] Dr. Ashlie Hills Mycoplas. Pneumoniae Not detected Normal NOT DETECTED [facility] Comment on above: Performed By: #### C VDAGS #### [facility] [address] [place] [address] Dr. Ashlie Hills Parainfluenza 1 Not detected Normal NOT DETECTED [facility] Comment on above: Performed By: #### C VDAGS #### [facility] [address] [place] [address] Dr. Ashlie Hills Parainfluenza 2 Not detected Normal NOT DETECTED [facility] Comment on above: Performed By: #### C VDAGS #### [facility] [address] [place] [address] Dr. Ashlie Hills Parainfluenza 3 Detected Abnormal NOT DETECTED [facility] Comment on above: Performed By: #### C VDAGS #### [facility] [address] [address] [address] Ashlie Hills Parainfluenza 4 Not detected Normal NOT DETECTED [facility] Comment on above: Performed By: #### C VDAGS #### [facility] [address] [place] [address] Dr. Ashlie Hills Rhino/Enterovirus Not detected Normal NOT DETECTED [facility] Comment on above: Performed By: #### C VDAGS #### [facility] [address] [place] [address] Dr. Ashlie Hills RP2 Header 1 RESPIRATORY PANEL: VIRUSES Normal [facility] Comment on above: Performed By: #### C VDAGS #### [facility] [address] [place] [address] Dr. Ashlie Hills RP2 Header 2 RESPIRATORY PANEL: BACTERIA Normal [facility] Comment on above: Performed By: #### C VDAGS #### [facility] [address] [place] [address] Dr. Ashlie Hills RSV Not detected Normal NOT DETECTED [facility] Comment on above: Performed By: #### C VDAGS #### [facility] [address] [place] [address] Dr. Ashlie Hills SARS-CoV-2 (COVID-19) RNA MADDY+probe Ql (Unsp spec) Not detected Normal NOT DETECTED [facility] Comment on above: Performed By: #### C VDAGS #### [facility] [address] [place] [address] Dr. Ashlie Hills XR CHEST 1 Von [...] by: MARYANNE POWER Date: 2022-12-04 22:23 Normal [facility] BLOOD GASES BTYon 12-04-2022 02 MODE ROOM AIR Normal [facility] Comment on above: Performed By: #### C BC #### [facility] [address] [address] [address] Ashlie Hills ALLENS TEST Positive Normal [facility] Comment on above: Performed By: #### C BC #### [facility] [address] [place] [address] Dr. Ashlie Hills Base excess Calc (Bld) [Moles/Vol] 5.4 mmol/L Critically high -2.0-2.0 [facility] Comment on above: Performed By: #### C BC #### [facility] [address] [place] [address] Dr. Ashlie Hills BIPAP PRESSURE Normal [facility] Comment on above: Performed By: #### C BC #### [facility] [address] [place] [address] Dr. Ashlie Hills CPAP [facility] Comment on above: Performed By: #### C BC #### [facility] [address] [place] [address] Dr. Ashlie Hills FIO2 [facility] Comment on above: Performed By: #### C BC #### [facility] [address] [place] [address] Dr. Ashlie Hills HCO3 (Bld) [Moles/Vol] 30.8 mmol/L Critically high 22.0-26.0 [facility] Comment on above: Performed By: #### C BC #### [facility] [address] [place] [address] Dr. Ashlie Hills LPM Normal [facility] Comment on above: Performed By: #### C BC #### [facility] [address] [place] [address] Dr. Ashlie Hills MINUTE VOLUME Normal [facility] Comment on above: Performed By: #### C BC #### [facility] [address] [place] [address] Dr. Ashlie Hills Oxygen (Bld) [Partial pressure] 46.3 mm[Hg] Critically low 80.0-100.0 [facility] Comment on above: Performed By: #### C BC #### [facility] [address] [place] [address] Dr. Ashlie Hills Oxygen saturation in Blood 83.9 % Critically low 95.0-100.0 [facility] Comment on above: Performed By: #### C BC #### [facility] [address] [place] [address] Dr. Ashlie Hills PCO2 54.2 mmHg Critically high 35.0-45.0 [facility] Comment on above: Performed By: #### C BC #### [facility] [address] [place] [address] Dr. Ashlie Hills PEEP [facility] Comment on above: Performed By: #### C BC #### [facility] [address] [place] [address] Dr. Ashlie Hills pH (Bld) 7.363 [pH] Normal 7.350-7.450 [facility] Comment on above: Performed By: #### C BC #### [facility] [address] [place] [address] Dr. Ashlie Hills [facility] Comment on above: Performed By: #### C BC #### [facility] [address] [place] [address] Dr. Ashlie Hills PS [facility] Comment on above: Performed By: #### C BC #### [facility] [address] [place] [address] Dr. Ashlie Hills PUNCTURE SITE LR [facility] Comment on above: Performed By: #### C BC #### [facility] [address] [place] [address] Dr. Ashlie Hills RATE [facility] Comment on above: Performed By: #### C BC #### [facility] [address] [place] [address] Dr. Ashlie Hills VENT MODE [facility] Comment on above: Performed By: #### C BC #### [facility] [address] [place] [address] Dr. Ashlie Hills [facility] Comment on above: Performed By: #### C BC #### [facility] [address] [place] [address] Dr. Ashlie Hills BNPon 12-04-2022 Natriuretic peptide B (Bld) [Mass/Vol] 76.0 pg/mL Normal <=900.0 [facility] Comment on above: Performed By: #### P OCGLUC #### [facility] [address] [place] [address] Dr. Ashlie Hills CBC AUTO DIFFon 12-04-2022 BASO # 0.1 103/ul Normal 0.0-0.1 [facility] Comment on above: Performed By: #### C BC #### [facility] [address] [place] [address] Dr. Ashlie Hills Basophils/100 WBC (Bld) 0.6 % Normal 0.2-2.0 [facility] Comment on above: Performed By: #### C BC #### [facility] [address] [place] [address] Dr. Ashlie Hills EO # 0.2 103/ul Normal 0.0-0.7 [facility] Comment on above: Performed By: #### C BC #### [facility] [address] [place] [address] Dr. Ashlie Hills Eosinophils/100 WBC (Bld) 1.9 % Normal 0.9-7.0 [facility] Comment on above: Performed By: #### C BC #### [facility] [address] [place] [address] Dr. Ashlie Hills Erythrocyte distribution width (RBC) [Ratio] 15.0 % Normal 11.0-15.0 [facility] Comment on above: Performed By: #### C BC #### [facility] [address] [place] [address] Dr. Ashlie Hills Hematocrit (Bld) [Volume fraction] 49.1 % Critically high 36.0-48.0 [facility] Comment on above: Performed By: #### C BC #### [facility] [address] [place] [address] Dr. Ashlie Hills Hemoglobin (Bld) [Mass/Vol] 15.6 g/dL Normal 12.0-16.0 [facility] Comment on above: Performed By: #### C BC #### [facility] [address] [place] [address] Dr. Ashlie Hills IG # 0.02 10e3/ul Normal 0.00-0.03 [facility] Comment on above: Performed By: #### C BC #### [facility] [address] [place] [address] Dr. Ashlie iHlls IG % 0.2 % Normal 0.0-0.5 [facility] Comment on above: Performed By: #### C BC #### [facility] [address] [place] [address] Dr. Ashlie Hills LYMPH # 2.8 103/ul Normal 1.2-3.8 [facility] Comment on above: Performed By: #### C BC #### [facility] [address] [place] [address] Dr. Ashlie Hills Lymphocytes/100 WBC (Bld) 29.9 % Normal 20.5-60.0 [facility] Comment on above: Performed By: #### C BC #### [facility] [address] [place] [address] Dr. Ashlie Hills MANUAL DIFF REQ NO Normal [facility] Comment on above: Performed By: #### C BC #### [facility] [address] [place] [address] Dr. Ashlie Hills MCH (RBC) [Entitic mass] 28.5 pg Normal 26.7-34.0 [facility] Comment on above: Performed By: #### C BC #### [facility] [address] [place] [address] Dr. Ashlie Hills MCHC (RBC) [Mass/Vol] 31.8 g/dL Normal 29.9-35.2 [facility] Comment on above: Performed By: #### C BC #### [facility] [address] [place] [address] Dr. Ashlie Hills MCV (RBC) [Entitic vol] 89.8 fL Normal 81.0-99.0 [facility] Comment on above: Performed By: #### C BC #### [facility] [address] [place], [place] [id number] Dr. Ashlie Hills MONO # 1.0 103/ul Critically high 0.3-0.8 [facility] Comment on above: Performed By: #### C BC #### [facility] [address] [place] [address] Dr. Ashlie Hills Monocytes/100 WBC (Bld) 10.6 % Normal 1.7-12.0 [facility] Comment on above: Performed By: #### C BC #### [facility] [address] [place] [address] Dr. Ashlie Hills NEUT # 5.3 103/ul Normal 1.4-6.5 [facility] Comment on above: Performed By: #### C BC #### [facility] [address] [place] [address] Dr. Ashlie Hills Neutrophils/100 WBC (Bld) 56.8 % Normal 43.0-75.0 [facility] Comment on above: Performed By: #### C BC #### [facility] [address] [place] [address] Dr. Ashlie Hills Platelet mean volume (Bld) [Entitic vol] 12.5 fL Normal 9.5-13.5 [facility] Comment on above: Performed By: #### C BC #### [facility] [address] [place] [address] Dr. Ashlie Hills PLT 109 103/ul Critically low 150-450 [facility] Comment on above: Performed By: #### C BC #### [facility] [address] [place] [address] Dr. Ashlie Hills RBC 5.47 106/ul Critically high 4.20-5.40 [facility] Comment on above: Performed By: #### C BC #### [facility] [address] [place] [address] Dr. Ashlie Hills WBC 9.4 103/ul Normal 4.0-11.0 [facility] Comment on above: Performed By: #### C BC #### [facility] [address] [place] [address] Dr. Ashlie Hills PROF 14(COMP METB)on 023 Albumin [Mass/Vol] 2.9 g/dL Critically low 3.4-5.0 [facility] Comment on above: Performed By: #### C BC #### [facility] [address] [place] [address] Dr. Ashlie Hills Albumin/Globulin [Mass ratio] 0.6 {ratio} Normal [facility] Comment on above: Performed By: #### C BC #### [facility] [address] [place] [address] Dr. Ashlie Hills ALP [Catalytic activity/Vol] 64 U/L Normal 46-116 [facility] Comment on above: Performed By: #### C BC #### [facility] [address] [place] [address] Dr. Ashlie Hills ALT [Catalytic activity/Vol] 16 U/L Normal 14-59 [facility] Comment on above: Performed By: #### C BC #### [facility] [address] [place] [address] Dr. Ashlie Hills Anion gap [Moles/Vol] 9.6 mmol/L Normal [facility] Comment on above: Performed By: #### C BC #### [facility] [address] [place] [address] Dr. Ashlie Hills AST [Catalytic activity/Vol] 16 U/L Normal 15-37 [facility] Comment on above: Performed By: #### C BC #### [facility] [address] [place] [address] Dr. Ashlie Hills Bilirubin [Mass/Vol] 0.5 mg/dL Normal 0.2-1.0 [facility] Comment on above: Performed By: #### C BC #### [facility] [address] [place] [address] Dr. Ashlie Hills Calcium [Mass/Vol] 8.7 mg/dL Normal 8.5-10.1 [facility] Comment on above: Performed By: #### C BC #### [facility] [address] [place] [address] Dr. Ashlie Hills Chloride [Moles/Vol] 103 mmol/L Normal 98-107 [facility] Comment on above: Performed By: #### C BC #### [facility] [address] [address] [address] Ashlie Hills CO2 [Moles/Vol] 30.7 mmol/L Normal 21.0-32.0 [facility] Comment on above: Performed By: #### C BC #### [facility] [address] [address] [address] Ashlie Hills Creatinine [Mass/Vol] 0.96 mg/dL Normal 0.55-1.02 [facility] Comment on above: Performed By: #### C BC #### [facility] [address] [place] [address] Dr. Ashlie Hills EGFR-AF SINGAPOREAN >60 Normal >=60 [facility] Comment on above: Performed By: #### C BC #### [facility] [address] [place] [address] Dr. Ashlie Hills EGFR-NON AF SINGAPOREAN >60 Normal >=60 [facility] Comment on above: Performed By: #### C BC #### [facility] [address] [address] [address] Ashlie Hills Globulin (S) [Mass/Vol] 4.7 g/dL Normal [facility] Comment on above: Performed By: #### C BC #### [facility] [address] [place] [address] Dr. Ashlie Hills Glucose [Mass/Vol] 170 mg/dL Critically high 74-106 [facility] Comment on above: Performed By: #### C BC #### [facility] [address] [place] [address] Dr. Ashlie Hills Potassium [Moles/Vol] 4.3 mmol/L Normal 3.5-5.1 [facility] Comment on above: Performed By: #### C BC #### [facility] [address] [place] [address] Dr. Ashlie Hills Protein [Mass/Vol] 7.6 g/dL Normal 6.4-8.2 [facility] Comment on above: Performed By: #### C BC #### [facility] [address] [address] [address] Ashlie Hills Sodium [Moles/Vol] 139 mmol/L Normal 136-145 [facility] Comment on above: Performed By: #### C BC #### [facility] [address] [place] [address] Dr. Ashlie Hills Urea nitrogen [Mass/Vol] 16.0 mg/dL Normal 7.0-18.0 [facility] Comment on above: Performed By: #### C BC #### [facility] [address] [place] [address] Dr. Ashlie Hills Urea nitrogen/Creatinine [Mass ratio] 16.7 mg/mg Normal [facility] Comment on above: Performed By: #### C BC #### [facility] [address] [place] [address] Dr. Ashlie Hills SYMPTOMATIC COVID-19 ANTIGEN on 12-04-2022 EUA Statement SEE BELOW Normal [facility] Comment on above: Result Comment: This test [...] sooner. Performed By: #### C VDAGS #### [facility] [address] [place] [address] Dr. Ashlie Hills SARS-CoV-2 (COVID-19) RNA MADDY+probe Ql (Unsp spec) Negative Normal NEGATIVE [facility] Comment on above: Performed By: #### C VDAGS #### [facility] [address] [place] [address] Dr. Ashlie Hills TROPONIN, HIGH SENSITIVITYon 12-04-2022 HSTROP 8.9 pg/mL Normal 4.0-51.3 [facility] Comment on above: Result Comment: CUT- OFF POINTS HAVE BEEN ESTABLISHED BASED ON THE FOURTH UNIVERSAL DEFINITIONS OF MYOCARDIAL INFARCTION. THE UPPER REFERENCE LIMIT (URL) OF TROPONIN, DEFINED THE 99TH PERCENTILE OF cTnI DISTRIBUTION IN A REFERENCE POPULATION, HAS BEEN CONFIRMED THE DECISION THRESHOLD FOR [place] DIAGNOSIS. Performed By: #### P OCGLUC #### [facility] [address] [place] [address] Dr. Ashlie Hills MICROALBUMIN, RAND URon - mALB 35.8 mg/dL Critically high <=30.0 [facility] Comment on above: Performed By: #### C VDAGS #### [facility] [address] [place] [address] Dr. Ashlie Hills UA RANDOM W/MICROSCOPICon BACTERIA NONE SEEN Normal NONE SEEN [facility] Comment on above: Performed By: #### C VDAGS #### [facility] [address] [place] [address] Dr. Ashlie Hills Bilirubin Ql (U) Negative Normal NEGATIVE [facility] Comment on above: Performed By: #### C VDAGS #### [facility] [address] [place] [address] Dr. Ashlie Hills CAST SEEN Abnormal NONE [facility] Comment on above: Performed By: #### C VDAGS #### [facility] [address] [place] [address] Dr. Ashlie Hills Clarity (U) CLEAR Normal CLEAR [facility] Comment on above: Performed By: #### C VDAGS #### [facility] [address] [place] [address] Dr. Ashlie Hills Color (U) YELLOW Normal YELLOW [facility] Comment on above: Performed By: #### C VDAGS #### [facility] [address] [place] [address] Dr. Ashlie Hills Crystals LM Nom (Urine sed) NONE SEEN Normal NONE SEEN [facility] Comment on above: Performed By: #### C VDAGS #### [facility] [address] [address] [address] Ashlie Hills Epithelial cells LM Ql (Urine sed) MODERATE Abnormal NONE SEEN /RARE [facility] Comment on above: Performed By: #### C VDAGS #### [facility] [address] [place] [address] Dr. Ashlie Hills Glucose Ql (U) Negative Normal NEGATIVE [facility] Comment on above: Performed By: #### C VDAGS #### [facility] [address] [place] [address] Dr. Ashlie Hills Hemoglobin Ql (U) TRACE-INTACT Abnormal NEGATIVE [facility] Comment on above: Performed By: #### C VDAGS #### [facility] [address] [place] [address] Dr. Ashlie Hills Ketones Ql (U) Negative Normal NEGATIVE [facility] Comment on above: Performed By: #### C VDAGS #### [facility] [address] [place] [address] Dr. Ashlie Hills LEUKOCYTES Negative Normal NEGATIVE [facility] Comment on above: Performed By: #### C VDAGS #### [facility] [address] [place] [address] Dr. Ashlie Hills MUCOUS NONE SEEN Normal NONE SEEN [facility] Comment on above: Performed By: #### C VDAGS #### [facility] [address] [place] [address] Dr. Ashlie Hills Nitrite Ql (U) Negative Normal NEGATIVE [facility] Comment on above: Performed By: #### C VDAGS #### [facility] [address] [place] [address] Dr. Ashlie Hills pH (U) 5.0 [pH] Normal 5-9 [facility] Comment on above: Performed By: #### C VDAGS #### [facility] [address] [place] [address] Dr. Ashlie Hills RBC 0-2 Normal 0-2 [facility] Comment on above: Performed By: #### C VDAGS #### [facility] [address] [place] [address] Dr. Ashlie Hills SPEC GRAVITY 1.030 Abnormal 1.005-<=1.025 [facility] Comment on above: Performed By: #### C VDAGS #### [facility] [address] [place] [address] Dr. Ashlie Hills UA PROTEIN 100 mg/dl Abnormal NEGATIVE/ TRACE [facility] Comment on above: Performed By: #### C VDAGS #### [facility] [address] [place] [address] Dr. Ashlie Hills Urobilinogen Qn (U) 0.2 {Little'U}/dL Normal 0.2 - 1. 0 [facility] Comment on above: Performed By: #### C VDAGS #### [facility] [address] [place] [address] Dr. Ashlie Hills WBC NONE SEEN Normal NONE SEEN [facility] Comment on above: Performed By: #### C VDAGS #### [facility] [address] [place] [address] Dr. Ashlie Hills CBC AUTO DIFFon 11-22-2022 BASO # 0.0 103/ul Normal 0.0-0.1 [facility] Comment on above: Performed By: #### C BC #### [facility] [address] [place] [address] Dr. Ashlie Hills Basophils/100 WBC (Bld) 0.3 % Normal 0.2-2.0 [facility] Comment on above: Performed By: #### C BC #### [facility] [address] [place] [address] Dr. Ashlie Hills EO # 0.4 103/ul Normal 0.0-0.7 [facility] Comment on above: Performed By: #### C BC #### [facility] [address] [place] [address] Dr. Ashlie Hills Eosinophils/100 WBC (Bld) 3.0 % Normal 0.9-7.0 [facility] Comment on above: Performed By: #### C BC #### [facility] [address] [place] [address] Dr. Ashlie Hills Erythrocyte distribution width (RBC) [Ratio] 15.3 % Critically high 11.0-15.0 [facility] Comment on above: Performed By: #### C BC #### [facility] [address] [place] [address] Dr. Ashlie Hills Hematocrit (Bld) [Volume fraction] 52.4 % Critically high 36.0-48.0 [facility] Comment on above: Performed By: #### C BC #### [facility] [address] [place] [address] Dr. Ashlie Hills Hemoglobin (Bld) [Mass/Vol] 16.8 g/dL Critically high 12.0-16.0 [facility] Comment on above: Performed By: #### C BC #### [facility] [address] [place] [address] Dr. Ashlie Hills IG # 0.04 10e3/ul Critically high 0.00-0.03 [facility] Comment on above: Performed By: #### C BC #### [facility] [address] [place] [address] Dr. Ashlie Hills IG % 0.3 % Normal 0.0-0.5 [facility] Comment on above: Performed By: #### C BC #### [facility] [address] [place] [address] Dr. Ashlie Hills LYMPH # 4.5 103/ul Critically high 1.2-3.8 [facility] Comment on above: Performed By: #### C BC #### [facility] [address] [place] [address] Dr. Ashlie Hills Lymphocytes/100 WBC (Bld) 33.2 % Normal 20.5-60.0 [facility] Comment on above: Performed By: #### C BC #### [facility] [address] [place] [address] Dr. Ashlie Hills MANUAL DIFF REQ NO Normal [facility] Comment on above: Performed By: #### C BC #### [facility] [address] [address] [address] Ashlie Hills MCH (RBC) [Entitic mass] 28.0 pg Normal 26.7-34.0 [facility] Comment on above: Performed By: #### C BC #### [facility] [address] [place] [address] Dr. Ashlie Hills MCHC (RBC) [Mass/Vol] 32.1 g/dL Normal 29.9-35.2 [facility] Comment on above: Performed By: #### C BC #### [facility] [address] [place] [address] Dr. Ashlie Hills MCV (RBC) [Entitic vol] 87.3 fL Normal 81.0-99.0 [facility] Comment on above: Performed By: #### C BC #### [facility] [address] [place] [address] Dr. Ashlie Hills MONO # 0.8 103/ul Normal 0.3-0.8 [facility] Comment on above: Performed By: #### C BC #### [facility] [address] [place] [address] Dr. Ashlie Hills Monocytes/100 WBC (Bld) 5.7 % Normal 1.7-12.0 [facility] Comment on above: Performed By: #### C BC #### [facility] [address] [place] [address] Dr. Ashlie Hills NEUT # 7.8 103/ul Critically high 1.4-6.5 [facility] Comment on above: Performed By: #### C BC #### [facility] [address] [place] [address] Dr. Ashlie Hills Neutrophils/100 WBC (Bld) 57.5 % Normal 43.0-75.0 [facility] Comment on above: Performed By: #### C BC #### [facility] [address] [place] [address] Dr. Ashlie Hills Platelet mean volume (Bld) [Entitic vol] 12.0 fL Normal 9.5-13.5 [facility] Comment on above: Performed By: #### C BC #### [facility] [address] [address] [address] Ashlie Hills PLT 152 103/ul Normal 150-450 [facility] Comment on above: Performed By: #### C BC #### [facility] [address] [address] [address] Ashlie Hills RBC 6.00 106/ul Critically high 4.20-5.40 [facility] Comment on above: Performed By: #### C BC #### [facility] [address] [address] [address] Ashlie Hills WBC 13.6 103/ul Critically high 4.0-11.0 [facility] Comment on above: Performed By: #### C BC #### [facility] [address] [place] [address] Dr. Ashlie Hills LIPID PROFILEon 11-22-2022 CHOL-HDL RATIO NORM SEE BELOW Normal [facility] Comment on above: Result Comment: 3.3 - 4.4 LOW RISK 4.4 - 7.1 AVERAGE RISK 7.1 - 11.0 MODERATE RISK >11.0 HIGH RISK Performed By: #### C BC #### [facility] [address] [address] [address] Ashlie Hills Cholesterol [Mass/Vol] 139 mg/dL Normal <=200 [facility] Comment on above: Performed By: #### C BC #### [facility] [address] [place] [address] Dr. Ashlie Hills Cholesterol in HDL [Mass/Vol] 35 mg/dL Critically low 40-60 [facility] Comment on above: Performed By: #### C BC #### [facility] [address] [address] [address] Ashlie Hills Cholesterol in LDL [Mass/Vol] 67.4 mg/dL Normal [facility] Comment on above: Performed By: #### C BC #### [facility] [address] [place] [address] Dr. Ashlie Hills Cholesterol.total/Ch olesterol in HDL [Mass ratio] 4.0 {ratio} Normal [facility] Comment on above: Performed By: #### C BC #### [facility] [address] [address] [address] Ashlie Hills HDL NORMAL > or = 60 mg/dl - LOW CARDIOVASCULAR RISK <40 mg/dl - HIGH CARDIOVASCULAR RISK Normal [facility] Comment on above: Performed By: #### C BC #### [facility] [address] [address] [address] Ashlie Hills LDL CALC NORMAL SEE BELOW Normal [facility] Comment on above: Result Comment: <100 mg/dl OPTIMAL 100 - 129 mg/dl NEAR OR ABOVE OPTIMAL 130 - 159 mg/dl BORDERLINE HIGH 160 - 189 mg/dl HIGH >190 mg/dl VERY HIGH Performed By: #### C BC #### [facility] [address] [address] [address] Ashlie Hills Triglyceride [Mass/Vol] 183 mg/dL Critically high <=150 [facility] Comment on above: Performed By: #### C BC #### [facility] [address] [address] [address] Ashlie Hills VLDL CALC 36.6 mg/dL Normal [facility] Comment on above: Performed By: #### C BC #### [facility] [address] [address] [address] Ashlie Hills MG MAMM SCREEN 3D ALEX CADon 11-22-2022 MG MAMM SCREEN 3D ALEX CAD Patient: MITZI MACIAS Exam Date: 11/22/2022 : 1970 Gender:F Ordering : SAYDA BLAS [facility] Admission #: [id number] Family : Order #: [id number] CLICK HERE TO VIEW EXAM RADIOLOGY REPORT [...] unknown cancer at age 75. LOCATION: [facility] BREAST COMPOSITION: Almost entirely fatty. [...] M.D. on 11/22/2022 at 12:09 Normal [facility] PROF 14(COMP METB)on 023 Albumin [Mass/Vol] 3.0 g/dL Critically low 3.4-5.0 Th e [facility] Comment on above: Performed By: #### C BC #### [facility] [address] [place] [address] Dr. Ashlie Hills Albumin/Globulin [Mass ratio] 0.6 {ratio} Normal [facility] Comment on above: Performed By: #### C BC #### [facility] [address] [address] [address] Ashlie Hills ALP [Catalytic activity/Vol] 68 U/L Normal 46-116 [facility] Comment on above: Performed By: #### C BC #### [facility] [address] [address] [address] Ashlie Hills ALT [Catalytic activity/Vol] 14 U/L Normal 14-59 [facility] Comment on above: Performed By: #### C BC #### [facility] [address] [address] [address] Ashlie Hills Anion gap [Moles/Vol] 12.1 mmol/L Normal [facility] Comment on above: Performed By: #### C BC #### [facility] [address] [address] [address] Ashlie Hills AST [Catalytic activity/Vol] 9 U/L Critically low 15-37 [facility] Comment on above: Performed By: #### C BC #### [facility] [address] [address] [address] Ashlie Hills Bilirubin [Mass/Vol] 0.4 mg/dL Normal 0.2-1.0 [facility] Comment on above: Performed By: #### C BC #### [facility] [address] [address] [address] Ashlie Hills Calcium [Mass/Vol] 9.0 mg/dL Normal 8.5-10.1 [facility] Comment on above: Performed By: #### C BC #### [facility] [address] [address] [address] Ashlie Hills Chloride [Moles/Vol] 105 mmol/L Normal 98-107 [facility] Comment on above: Performed By: #### C BC #### [facility] [address] [address] [address] Ashlie Hills CO2 [Moles/Vol] 30.7 mmol/L Normal 21.0-32.0 [facility] Comment on above: Performed By: #### C BC #### [facility] [address] [address] [address] Ashlie Hills Creatinine [Mass/Vol] 0.77 mg/dL Normal 0.55-1.02 [facility] Comment on above: Performed By: #### C BC #### [facility] [address] [address] [address] Ashlie Hills EGFR-AF SINGAPOREAN >60 Normal >=60 [facility] Comment on above: Performed By: #### C BC #### [facility] [address] [address] [address] Ashlie Hills EGFR-NON AF SINGAPOREAN >60 Normal >=60 [facility] Comment on above: Performed By: #### C BC #### [facility] [address] [address] [address] Ashlie Hills Globulin (S) [Mass/Vol] 4.8 g/dL Normal [facility] Comment on above: Performed By: #### C BC #### [facility] [address] [address] [address] Ashlie Hills Glucose [Mass/Vol] 162 mg/dL Critically high 74-106 [facility] Comment on above: Performed By: #### C BC #### [facility] [address] [address] [address] Ashlie Hills Potassium [Moles/Vol] 3.8 mmol/L Normal 3.5-5.1 [facility] Comment on above: Performed By: #### C BC #### [facility] [address] [address] [address] Ashlie Hills Protein [Mass/Vol] 7.8 g/dL Normal 6.4-8.2 [facility] Comment on above: Performed By: #### C BC #### [facility] [address] [place] [address] Dr. Ashlie Hills Sodium [Moles/Vol] 144 mmol/L Normal 136-145 [facility] Comment on above: Performed By: #### C BC #### [facility] [address] [place] [address] Dr. Ashlie Hills Urea nitrogen [Mass/Vol] 24.0 mg/dL Critically high 7.0-18.0 [facility] Comment on above: Performed By: #### C BC #### [facility] [address] [place] [address] Dr. Ashlie Hills Urea nitrogen/Creatinine [Mass ratio] 31.2 mg/mg Normal [facility] Comment on above: Performed By: #### C BC #### [facility] [address] [place] [address] Dr. Ashlie Hills CBC AUTO DIFFon 10-05-2022 BASO # 0.1 103/ul Normal 0.0-0.1 [facility] Comment on above: Performed By: #### C BC #### [facility] [address] [place] [address] Dr. Ashlie Hills Basophils/100 WBC (Bld) 0.6 % Normal 0.2-2.0 [facility] Comment on above: Performed By: #### C BC #### [facility] [address] [place] [address] Dr. Ashlie Hills EO # 0.3 103/ul Normal 0.0-0.7 [facility] Comment on above: Performed By: #### C BC #### [facility] [address] [place] [address] Dr. Ashlie Hills Eosinophils/100 WBC (Bld) 2.1 % Normal 0.9-7.0 [facility] Comment on above: Performed By: #### C BC #### [facility] [address] [place] [address] Dr. Ashlie Hills Erythrocyte distribution width (RBC) [Ratio] 15.9 % Critically high 11.0-15.0 [facility] Comment on above: Performed By: #### C BC #### [facility] [address] [place] [address] Dr. Ashlie Hills Hematocrit (Bld) [Volume fraction] 51.8 % Critically high 36.0-48.0 [facility] Comment on above: Performed By: #### C BC #### [facility] [address] [place] [address] Dr. Ashlie Hills Hemoglobin (Bld) [Mass/Vol] 16.6 g/dL Critically high 12.0-16.0 [facility] Comment on above: Performed By: #### C BC #### [facility] [address] [place] [address] Dr. Ashlie Hills IG # 0.03 10e3/ul Normal 0.00-0.03 [facility] Comment on above: Performed By: #### C BC #### [facility] [address] [place] [address] Dr. Ashlie Hills IG % 0.2 % Normal 0.0-0.5 [facility] Comment on above: Performed By: #### C BC #### [facility] [address] [place] [address] Dr. Ashlie Hills LYMPH # 3.9 103/ul Critically high 1.2-3.8 [facility] Comment on above: Performed By: #### C BC #### [facility] [address] [place] [address] Dr. Ashlie Hills Lymphocytes/100 WBC (Bld) 31.7 % Normal 20.5-60.0 [facility] Comment on above: Performed By: #### C BC #### [facility] [address] [place] [address] Dr. Ashlie Hills MANUAL DIFF REQ NO Normal [facility] Comment on above: Performed By: #### C BC #### [facility] [address] [place] [address] Dr. Ashlie Hills MCH (RBC) [Entitic mass] 27.9 pg Normal 26.7-34.0 [facility] Comment on above: Performed By: #### C BC #### [facility] [address] [place] [address] Dr. Ashlie Hills MCHC (RBC) [Mass/Vol] 32.0 g/dL Normal 29.9-35.2 [facility] Comment on above: Performed By: #### C BC #### [facility] [address] [place] [address] Dr. Ashlie Hills MCV (RBC) [Entitic vol] 87.1 fL Normal 81.0-99.0 [facility] Comment on above: Performed By: #### C BC #### [facility] [address] [place] [address] Dr. Ashlie Hills MONO # 0.7 103/ul Normal 0.3-0.8 [facility] Comment on above: Performed By: #### C BC #### [facility] [address] [place] [address] Dr. Ashlie Hills Monocytes/100 WBC (Bld) 5.8 % Normal 1.7-12.0 [facility] Comment on above: Performed By: #### C BC #### [facility] [address] [place] [address] Dr. Ashlie Hills NEUT # 7.3 103/ul Critically high 1.4-6.5 [facility] Comment on above: Performed By: #### C BC #### [facility] [address] [place] [address] Dr. Ashlie Hills Neutrophils/100 WBC (Bld) 59.6 % Normal 43.0-75.0 [facility] Comment on above: Performed By: #### C BC #### [facility] [address] [place] [address] Dr. Ashlie Hills Platelet mean volume (Bld) [Entitic vol] 11.7 fL Normal 9.5-13.5 [facility] Comment on above: Performed By: #### C BC #### [facility] [address] [place] [address] Dr. Ashlie Hills PLT 117 103/ul Critically low 150-450 [facility] Comment on above: Performed By: #### C BC #### [facility] [address] [place] [address] Dr. Ashlie Hills RBC 5.95 106/ul Critically high 4.20-5.40 [facility] Comment on above: Performed By: #### C BC #### [facility] [address] [place] [address] Dr. Ashlie Hills WBC 12.3 103/ul Critically high 4.0-11.0 [facility] Comment on above: Performed By: #### C BC #### [facility] [address] [place] [address] ABD/PELV W CONon [...] RICCO PICKARD Date: 2022-10-05 13:13 Normal [facility] ER URINE PROFILEon 3 Bilirubin Ql (U) Negative Normal NEGATIVE [facility] Comment on above: Performed By: #### P OCGLUC #### [facility] [address] [address] [address] Ashlie Hills Clarity (U) CLEAR Normal CLEAR [facility] Comment on above: Performed By: #### P OCGLUC #### [facility] [address] [place] [address] Dr. Ashlie Hills Color (U) YELLOW Normal YELLOW [facility] Comment on above: Performed By: #### P OCGLUC #### [facility] [address] [address] [address] Ashlie Hills ERUESD A micrscopic examination will be performed if indicated. Normal [facility] Comment on above: Performed By: #### P OCGLUC #### [facility] [address] [address] [address] Ashlie Hills Glucose Ql (U) Negative Normal NEGATIVE [facility] Comment on above: Performed By: #### P OCGLUC #### [facility] [address] [address] [address] Ashlie Hills Hemoglobin Ql (U) Negative Normal NEGATIVE [facility] Comment on above: Performed By: #### P OCGLUC #### [facility] [address] [address] [address] Ashlie Hills Ketones Ql (U) Negative Normal NEGATIVE [facility] Comment on above: Performed By: #### P OCGLUC #### [facility] [address] [address] [address] Ashlie Hills LEUKOCYTES Negative Normal NEGATIVE [facility] Comment on above: Performed By: #### P OCGLUC #### [facility] [address] [place] [address] Dr. Ashlie Hills Nitrite Ql (U) Negative Normal NEGATIVE [facility] Comment on above: Performed By: #### P OCGLUC #### [facility] [address] [place] [address] Dr. Ashlie Hills pH (U) 6.0 [pH] Normal 5-9 [facility] Comment on above: Performed By: #### P OCGLUC #### [facility] [facility] [address] [place] [address] Dr. Ashlie Hills Protein (U) [Mass/Vol] 100 mg/dL Abnormal NEGATIVE/ TRACE [facility] Comment on above: Performed By: #### P OCGLUC #### [facility] [address] [place] [address] Dr. Ashlie Hills SPEC GRAVITY 1.010 Normal 1.005-<=1.025 [facility] Comment on above: Performed By: #### P OCGLUC #### [facility] [address] [place] [address] Dr. Ashlie Hills UR MICRO IND INDICATED Normal [facility] Comment on above: Performed By: #### P OCGLUC #### [facility] [address] [place] [address] Dr. Ashlie Hills Urobilinogen Qn (U) 1.0 {Little'U}/dL Normal 0.2 - 1. 0 [facility] Comment on above: Performed By: #### P OCGLUC #### [facility] [address] [place] [address] Dr. Ashlie Hills LIPASEon 10-05-2022 Lipase [Catalytic activity/Vol] 1771.0 U/L Critically high 73.0-393.0 [facility] Comment on above: Performed By: #### C BC #### [facility] [address] [place] [address] Dr. Ashlie Hills PREG HCG QUALon 10-05-2022 , QUAL Negative Normal NEGATIVE [facility] Comment on above: Performed By: #### P OCGLUC #### [facility] [address] [address] [address] Ashlie Hills PROF 14(COMP METB)on 023 Albumin [Mass/Vol] 3.2 g/dL Critically low 3.4-5.0 [facility] Comment on above: Performed By: #### C BC #### [facility] [address] [place] [address] Dr. Ashlie Hills Albumin/Globulin [Mass ratio] 0.7 {ratio} Normal [facility] Comment on above: Performed By: #### C BC #### [facility] [address] [place] [address] Dr. Ashlie Hills ALP [Catalytic activity/Vol] 70 U/L Normal 46-116 [facility] Comment on above: Performed By: #### C BC #### [facility] [address] [place] [address] Dr. Ashlie Hills ALT [Catalytic activity/Vol] 11 U/L Critically low 14-59 [facility] Comment on above: Performed By: #### C BC #### [facility] [address] [place] [address] Dr. Ashlie Hills Anion gap [Moles/Vol] 10.3 mmol/L Normal [facility] Comment on above: Performed By: #### C BC #### [facility] [address] [place] [address] Dr. Ashlie Hills AST [Catalytic activity/Vol] 11 U/L Critically low 15-37 [facility] Comment on above: Performed By: #### C BC #### [facility] [address] [place] [address] Dr. Ashlie Hills Bilirubin [Mass/Vol] 0.9 mg/dL Normal 0.2-1.0 [facility] Comment on above: Performed By: #### C BC #### [facility] [address] [place] [address] Dr. Ashlie Hills Calcium [Mass/Vol] 9.3 mg/dL Normal 8.5-10.1 [facility] Comment on above: Performed By: #### C BC #### [facility] [address] [place] [address] Dr. Ashlie Hills Chloride [Moles/Vol] 105 mmol/L Normal 98-107 [facility] Comment on above: Performed By: #### C BC #### [facility] [address] [place] [address] Dr. Ashlie Hills CO2 [Moles/Vol] 30.6 mmol/L Normal 21.0-32.0 [facility] Comment on above: Performed By: #### C BC #### [facility] [address] [place] [address] Dr. Ashlie Hills Creatinine [Mass/Vol] 0.62 mg/dL Normal 0.55-1.02 [facility] Comment on above: Performed By: #### C BC #### [facility] [address] [place] [address] Dr. Ashlie Hills EGFR-AF SINGAPOREAN >60 Normal >=60 [facility] Comment on above: Performed By: #### C BC #### [facility] [address] [place] [address] Dr. Ashlie Hills EGFR-NON AF SINGAPOREAN >60 Normal >=60 [facility] Comment on above: Performed By: #### C BC #### [facility] [address] [place] [address] Dr. Ahslie Hills Globulin (S) [Mass/Vol] 4.6 g/dL Normal [facility] Comment on above: Performed By: #### C BC #### [facility] [address] [place] [address] Dr. Ashlie Hills Glucose [Mass/Vol] 85 mg/dL Normal 74-106 [facility] Comment on above: Performed By: #### C BC #### [facility] [address] [place] [address] Dr. Ashlie Hills Potassium [Moles/Vol] 3.9 mmol/L Normal 3.5-5.1 [facility] Comment on above: Performed By: #### C BC #### [facility] [address] [place] [address] Dr. Ashlie Hills Protein [Mass/Vol] 7.8 g/dL Normal 6.4-8.2 [facility] Comment on above: Performed By: #### C BC #### [facility] [address] [place] [address] Dr. Ashlie Hills Sodium [Moles/Vol] 142 mmol/L Normal 136-145 [facility] Comment on above: Performed By: #### C BC #### [facility] [address] [place] [address] Dr. Ashlie Hills Urea nitrogen [Mass/Vol] 12.0 mg/dL Normal 7.0-18.0 [facility] Comment on above: Performed By: #### C BC #### [facility] [address] [place] [address] Dr. Ashlie Hills Urea nitrogen/Creatinine [Mass ratio] 19.4 mg/mg Normal [facility] Comment on above: Performed By: #### C BC #### [facility] [address] [place] [address] Dr. Ashlie Hills URINE MICROSCOPIC ONLYon BACTERIA TRACE Abnormal NONE SEEN [facility] Comment on above: Performed By: #### P OCGLUC #### [facility] [address] [place] [address] Dr. Ashlie Hills Bacteria identified Cx Nom (U) NOT INDICATED Normal [facility] Comment on above: Performed By: #### P OCGLUC #### [facility] [address] [place] [address] Dr. Ashlie Hills CAST NONE SEEN Normal NONE SEEN [facility] Comment on above: Performed By: #### P OCGLUC #### [facility] [address] [place] [address] Dr. Ashlie Hills Crystals LM Nom (Urine sed) NONE SEEN Normal NONE SEEN [facility] Comment on above: Performed By: #### P OCGLUC #### [facility] [address] [place] [address] Dr. Ashlie Hills Epithelial cells LM Ql (Urine sed) MODERATE Abnormal NONE SEEN /RARE [facility] Comment on above: Performed By: #### P OCGLUC #### [facility] [address] [place] [address] Dr. Ashlie Hills MUCOUS NONE SEEN Normal NONE SEEN [facility] Comment on above: Performed By: #### P OCGLUC #### [facility] [address] [place] [address] Dr. Ashlie Hills RBC 0-2 Normal 0-2 [facility] Comment on above: Performed By: #### P OCGLUC #### [facility] [address] [place] [address] Dr. Ashlie Hills WBC 0-2 Abnormal NONE SEEN [facility] Comment on above: Performed By: #### P OCGLUC #### [facility] [address] [place] [address] Dr. Ashlie Hills Covid-19 PCR ([facility])on 09-06 SARS-CoV-2 (COVID-19) RNA MADDY+probe Ql (Unsp spec) Detected Abnormal NOT DETECTED [facility] Comment on above: Result Comment: This test is not yet approved or cleared by the [place] FDA. When there are no FDA-approved or cleared tests available, and other criteria are met, FDA can make tests available under an emergency access mechanism called an Emergency Use Authorization (EUA). The EUA for this test is supported by the [place] of Health and Human Service's declaration that [...] used). Performed By: #### C VDAGS #### [facility] [address] [place] [address] Dr. Ashlie Hills INFLUENZA A AND B AGon 09-21 INFLUANEGH SEE BELOW Normal [facility] Comment on above: Result Comment: Nega tive for Flu A protein angiten. Infection due to Flu A cannot be ruled out. Flu A angiten in the sample may be below the detection limit of the test. Performed By: #### I NFLUAB #### [facility] [address] [place] [address] Dr. Ashlie Hills [facility] Normal [facility] Comment on above: Result Comment: Nega tive for Flu B protein antigen. Infection due to Flu B cannot be ruled out. Flu B antigen in the sample may be below the detection limit of the test. Performed By: #### I NFLUAB #### [facility] [address] [place] [address] Dr. Ashlie Hills INFLUENZA A AG Negative Normal NEGATIVE SEE COMMENT [facility] Comment on above: Performed By: #### I NFLUAB #### [facility] [address] [place] [address] Dr. Ashlie Hills INFLUENZA B AG Negative Normal NEGATIVE SEE COMMENT [facility] Comment on above: Performed By: #### I NFLUAB #### [facility] [address] [place] [address] ABD/PELV W CONon 07-27-19 CT ABD/PELV [...] to at least 10/21/2018, unchanged. https://www.ncbi.nlm .nih.gov/pmc/article s/[id number]/ Electronically authenticated by: COLLIN HUERTAS Date: 2022-07-27 14:56 Normal [facility] CREATININEon 07-18-2022 Creatinine [Mass/Vol] 0.81 mg/dL Normal 0.55-1.02 [facility] Comment on above: Performed By: #### C BC #### [facility] [address] [place], [place] [address] Dr. Ashlie Hills EGFR-AF SINGAPOREAN >60 Normal >=60 [facility] Comment on above: Performed By: #### C BC #### [facility] [address] [place], [place] [address] Dr. Ashlie Hills EGFR-NON AF SINGAPOREAN >60 Normal >=60 [facility] Comment on above: Performed By: #### C BC #### [facility] [address] [place], [place] [address] LOW EXT W [...] PATRICIA IVAN Date: 2022-07-18 14:58 Normal [facility] XR KNEE LT 1_2 Von [...] HATTIE BAUTISTA Date: 2022-07-18 12:00 Normal [facility] Covid-19 PCR ([facility])on 06-09 SARS-CoV-2 (COVID-19) RNA MADDY+probe Ql (Unsp spec) Not detected Normal NOT DETECTED [facility] Comment on above: Result Comment: This test is not yet approved or cleared by the [place] FDA. When there are no FDA-approved or cleared tests available, and other criteria are met, FDA can make tests available under an emergency access mechanism called an Emergency Use Authorization (EUA). The EUA for this test is supported by the [place] of Health and Human Service's (HHS's) declaration [...] SARS-CoV-2. Performed By: #### C BC #### [facility] [address] [place] [address] Dr. Ashlie Hills INFLUENZA A AND B [facility] 07-06 [facility] SEE BELOW Normal [facility] Comment on above: Result Comment: Nega tive for Flu A protein angiten. Infection due to Flu A cannot be ruled out. Flu A angiten in the sample may be below the detection limit of the test. Performed By: #### C BC #### [facility] [address] [place] [address] [address] [address] Ashlie Hills [facility] SEE BELOW Normal [facility] Comment on above: Result Comment: Nega tive for Flu B protein antigen. Infection due to Flu B cannot be ruled out. Flu B antigen in the sample may be below the detection limit of the test. Performed By: #### C BC #### [facility] [address] [place] [address] Dr. Ashlie Hills INFLUENZA A AG Negative Normal NEGATIVE SEE COMMENT [facility] Comment on above: Performed By: #### C BC #### [facility] [address] [place] [address] Dr. Ashlie Hills INFLUENZA B AG Negative Normal NEGATIVE SEE COMMENT [facility] Comment on above: Performed By: #### C BC #### [facility] [address] [place] [address] Dr. Ashlie Hills POINT OF CARE GLUCOSEon 10- Glucose [Mass/Vol] 108 mg/dL Critically high 74-106 [facility] Comment on above: Performed By: #### C BC #### [facility] [address] [place] [address] Dr. Ashlie Hills RAGHU by IFAon 03-07-2022 Antinuclear Antibodies, IFA Negative Normal [facility] Comment on above: Result Comment: Nega tive <1:80 Borderline 1:80 Positive >1:80 ICAP nomenclature: AC-0 For more information about Hep-2 cell patterns use ANApatterns.org, the official website for the International Consensus on Antinuclear Antibody (RAGHU) Patterns (ICAP). Performed By: #### A NAIFA #### [facility] [address] [place] [address] Dr. Ashlie Hills IMMUNOFIXATION (TREVON), URINEo n 03-07-2022 TREVON Interpretation:U Comment Normal [facility] Comment on above: Result Comment: No m onoclonality detected. Performed By: #### C BC #### [facility] [address] [place] [address] Dr. Ashlie Hills IMMUNOFIXATION(TREVON),PROTEIN ELEC(PE),FREon 03-07-2022 Albumin [Mass/Vol] 3.0 g/dL Normal 2.9-4.4 [facility] Comment on above: Performed By: #### I NFLUAB #### [facility] [address] [place] [address] Dr. Ashlie Hills Albumin/Globulin [Mass ratio] 0.8 {ratio} Normal 0.7-1.7 [facility] Comment on above: Performed By: #### I NFLUAB #### [facility] [address] [address] [address] Ashlie Hills Lhdee-8-Ohgaogjg 0.3 g/dL Normal 0.0-0.4 [facility] Comment on above: Performed By: #### I NFLUAB #### [facility] [address] [address] [address] Ashlie Hills Ygmji-5-Szqhqfss 1.0 g/dL Normal 0.4-1.0 [facility] Comment on above: Performed By: #### I NFLUAB #### [facility] [address] [place] [address] Dr. Ashlie Hills Beta Globulin 1.8 g/dL Critically high 0.7-1.3 [facility] Comment on above: Performed By: #### I NFLUAB #### [facility] [address] [place] [address] Dr. Ashlie Hills Free [place] Lt Chains,S 45.2 mg/L Critically high 3.3-19.4 [facility] Comment on above: Performed By: #### I NFLUAB #### [facility] [address] [place] [address] Dr. Ashlie Hills Free Lambda Lt Chains,S 40.3 mg/L Critically high 5.7-26.3 [facility] Comment on above: Performed By: #### I NFLUAB #### [facility] [address] [place] [address] Dr. Ashlie Hills Gamma Globulin 0.8 g/dL Normal 0.4-1.8 [facility] Comment on above: Performed By: #### I NFLUAB #### [facility] [address] [place] [address] Dr. Ashlie Hills Globulin (S) [Mass/Vol] 3.9 g/dL Normal 2.2-3.9 [facility] Comment on above: Performed By: #### I NFLUAB #### [facility] [address] [address] [address] Ashlie Hills Immunofixation Result, Serum Comment Normal [facility] Comment on above: Result Comment: No m onoclonality detected. Performed By: #### I NFLUAB #### [facility] [address] [address] [address] Ashlie Hills Immunoglobulin A, Qn, Serum 776 mg/dL Critically high 87-352 [facility] Comment on above: Performed By: #### I NFLUAB #### [facility] [address] [address] [address] Ashlie Hills Immunoglobulin G, Qn, Serum 955 mg/dL Normal 586-1602 [facility] Comment on above: Performed By: #### I NFLUAB #### [facility] [address] [place] [address] Dr. Ashlie Hills Immunoglobulin M, Qn, Serum 39 mg/dL Normal 26-217 [facility] Comment on above: Performed By: #### I NFLUAB #### [facility] [address] [address] [address] Ashlie Hills [place]/Lambda Ratio, S 1.12 Normal 0.26-1.65 [facility] Comment on above: Performed By: #### I NFLUAB #### [facility] [address] [address] [address] Ashlie Hills M-Bright Not Observed Normal Not Observed [facility] Comment on above: Performed By: #### I NFLUAB #### [facility] [address] [address] [address] Ashlie Hills PDF . Normal [facility] Comment on above: Performed By: #### I NFLUAB #### [facility] [address] [place] [address] Dr. Ashlie Hills Please note: Comment Normal [facility] Comment on above: Result Comment: Prot ein electrophoresis scan will follow via computer, mail, or paymaster of purses delivery. Performed By: #### I NFLUAB #### [facility] [address] [address] [address] Ashlie Hills Protein [Mass/Vol] 6.9 g/dL Normal 6.0-8.5 [facility] Comment on above: Performed By: #### I NFLUAB #### [facility] [address] [place] [address] Dr. Ashlie Hills C-PEPTIDE, SERUMon C-Peptide, Serum 3.1 ng/mL Normal 1.1-4.4 [facility] Comment on above: Result Comment: C-Pe ptide reference interval is for fasting patients. Performed By: #### C PEPT #### [facility] [address] [address] [address] Ashlie Hills HEP B SURFACE ANTIGEN SCREEN on 03-04-2022 HBsAg Screen Negative Normal Negative [facility] Comment on above: Performed By: #### C BC #### [facility] [address] [place] [address] Dr. Ashlie Hills HEPATITIS C VIRUS AB W/ REFL EX QUANTon 03-04-2022 HCV AB <0.1 Normal 0.0-0.9 [facility] Comment on above: Performed By: #### I NFLUAB #### [facility] [address] [address] [address] Ashlie Hills Interpretation: Comment Normal [facility] Comment on above: Result Comment: Nega tive Not infected with HCV, unless recent infection is suspected or other evidence exists to indicate HCV infection. Performed By: #### I NFLUAB #### [facility] [address] [address] [address] Ashlie Hills MICROALBUMIN/ CREATININE RAT IOon 03-04-2022 Albumin, Urine 367.4 ug/mL Normal Not Estab. [facility] Comment on above: Performed By: #### C BC #### [facility] [address] [place] [address] Dr. Ashlie Hills Albumin/ Creatinine Ratio 239 mg/g creat Critically high 0-29 [facility] Comment on above: Result Comment: Norm al: 0 - 29 Moderately increased: 30 - 300 Severely increased: >300 Performed By: #### C BC #### [facility] [address] [address] [address] Ashlie Hills Creatinine, Urine 153.9 mg/dL Normal Not Estab. [facility] Comment on above: Performed By: #### C BC #### [facility] [address] [address] [address] Ashlie Hills VIT D 25-OH LABCORPon 2021 Vitamin D, 25-Hydroxy <4.0 Critically low 30.0-100.0 [facility] Comment on above: Result Comment: Graciela min D deficiency has been defined by the [place] of Medicine and an Endocrine Society practice guideline as a level of serum 25-OH vitamin D less than 20 ng/mL (1,2). The Endocrine Society went on to further define vitamin D insufficiency as a level between 21 and 29 ng/mL (2). 1. IOM ([place] of Medicine). 2010. Dietary reference intakes for calcium and D. [place]: The National Academies Press. 2. Lynda MF, Keely OLIVEROS, Leandra LOPEZ, et al. Evaluation, treatment, and prevention of vitamin D deficiency: an Endocrine Society clinical practice guideline. JCEM. 2010; 96(7):1911-30. Performed By: #### C BC #### [facility] [address] [address] [address] Ashlie Hills GLYCOHEMOGLOBIN A1Con 2021 ADA RECOMMENDATION SEE BELOW Normal [facility] Comment on above: Result Comment: ADA RECOMMENDED LIMIT 4.0 - 6.0 ADA THERAPEUTIC TARGET < 7.0 ACTION SUGGESTED > 7.0 Performed By: #### C VDAGS #### [facility] [address] [address] [address] Ashlie Hills Glucose [Mass/Vol] 295 mg/dL Normal [facility] Comment on above: Performed By: #### C VDAGS #### [facility] [address] [address] [address] Ashlie Hills HbA1c (Bld) [Mass fraction] 11.9 % Critically high 4.5-6.2 [facility] Comment on above: Performed By: #### C VDAGS #### [facility] [address] [place] [address] Dr. Ashlie Hills HEMOGRAM AND PLATELon 2021 Hematocrit (Bld) [Volume fraction] 56.3 % Critically high 36.0-48.0 [facility] Comment on above: Performed By: #### C VDAGS #### [facility] [address] [place] [address] Dr. Ashlie Hills Hemoglobin (Bld) [Mass/Vol] 18.0 g/dL Critically high 12.0-16.0 [facility] Comment on above: Performed By: #### C VDAGS #### [facility] [address] [place] [address] Dr. Ashlie Hills MCH (RBC) [Entitic mass] 29.5 pg Normal 26.7-34.0 [facility] Comment on above: Performed By: #### C VDAGS #### [facility] [address] [place] [address] Dr. Ashlie Hills MCHC (RBC) [Mass/Vol] 32.0 g/dL Normal 29.9-35.2 [facility] Comment on above: Performed By: #### C VDAGS #### [facility] [address] [place] [address] Dr. Ashlie Hills MCV (RBC) [Entitic vol] 92.1 fL Normal 81.0-99.0 [facility] Comment on above: Performed By: #### C VDAGS #### [facility] [address] [place] [address] Dr. Ashlie Hills PLT 123 103/ul Critically low 150-450 [facility] Comment on above: Performed By: #### C VDAGS #### [facility] [address] [place] [address] Dr. Ashlie Hills RBC 6.11 106/ul Critically high 4.20-5.40 [facility] Comment on above: Performed By: #### C VDAGS #### [facility] [address] [place] [address] Dr. Ashlie Hills WBC 16.4 103/ul Critically high 4.0-11.0 [facility] Comment on above: Performed By: #### C VDAGS #### [facility] [id number] Ashlie Hills LIPID PROFILEon 03-03-2022 CHOL-HDL RATIO NORM SEE BELOW Normal [facility] Comment on above: Result Comment: 3.3 - 4.4 LOW RISK 4.4 - 7.1 AVERAGE RISK 7.1 - 11.0 MODERATE RISK >11.0 HIGH RISK Performed By: #### C VDAGS #### [facility] [address] [address] [address] Ashlie Hills Cholesterol [Mass/Vol] 159 mg/dL Normal <=200 [facility] Comment on above: Performed By: #### C VDAGS #### [facility] [address] [address] [address] Ashlie Hills Cholesterol in HDL [Mass/Vol] 40 mg/dL Normal 40-60 [facility] Comment on above: Performed By: #### C VDAGS #### [facility] [address] [address] [address] Ashlie Hills Cholesterol in LDL [Mass/Vol] 81.8 mg/dL Normal [facility] Comment on above: Performed By: #### C VDAGS #### [facility] [address] [place], [place] [address] Dr. Ashlie Hills Cholesterol.total/Ch olesterol in HDL [Mass ratio] 4.0 {ratio} Normal [facility] Comment on above: Performed By: #### C VDAGS #### [facility] [address] [place], [place] [address] Dr. Ashlie Hills HDL NORMAL > or = 60 mg/dl - LOW CARDIOVASCULAR RISK <40 mg/dl - HIGH CARDIOVASCULAR RISK Normal [facility] Comment on above: Performed By: #### C VDAGS #### [facility] [address] [address] [address] Ashlie Hills LDL CALC NORMAL SEE BELOW Normal [facility] Comment on above: Result Comment: <100 mg/dl OPTIMAL 100 - 129 mg/dl NEAR OR ABOVE OPTIMAL 130 - 159 mg/dl BORDERLINE HIGH 160 - 189 mg/dl HIGH >190 mg/dl VERY HIGH Performed By: #### C VDAGS #### [facility] [address] [place] [address] Dr. Ashlie Hills Triglyceride [Mass/Vol] 186 mg/dL Critically high <=150 [facility] Comment on above: Performed By: #### C VDAGS #### [facility] [address] [place] [address] Dr. Ashlie Hills VLDL CALC 37.2 mg/dL Normal [facility] Comment on above: Performed By: #### C VDAGS #### [facility] [address] [place] [address] Dr. Ashlie Hills RENAL FUNCTION PANELon 03-03 Albumin [Mass/Vol] 3.1 g/dL Critically low 3.4-5.0 [facility] Comment on above: Performed By: #### C BC #### [facility] [address] [place] [address] Dr. Ashlie Hills Calcium [Mass/Vol] 9.2 mg/dL Normal 8.5-10.1 [facility] Comment on above: Performed By: #### C BC #### [facility] [address] [place] [address] Dr. Ashlie Hills Chloride [Moles/Vol] 102 mmol/L Normal 98-107 [facility] Comment on above: Performed By: #### C BC #### [facility] [address] [place] [address] Dr. Ashlie Hills CO2 [Moles/Vol] 31.9 mmol/L Normal 21.0-32.0 [facility] Comment on above: Performed By: #### C BC #### [facility] [address] [place] [address] Dr. Ashlie Hills Creatinine [Mass/Vol] 0.68 mg/dL Normal 0.55-1.02 [facility] Comment on above: Performed By: #### C BC #### [facility] [address] [place] [address] Dr. Ashlie Hills EGFR-AF SINGAPOREAN >60 Normal >=60 [facility] Comment on above: Performed By: #### C BC #### [facility] [address] [address] [address] Ashlie Hills EGFR-NON AF SINGAPOREAN >60 Normal >=60 [facility] Comment on above: Performed By: #### C BC #### [facility] [address] [address] [address] Ashlie Hills Glucose [Mass/Vol] 131 mg/dL Critically high 74-106 [facility] Comment on above: Performed By: #### C BC #### [facility] [address] [address] [address] Ashlie Hills Phosphate [Mass/Vol] 4.0 mg/dL Normal 2.6-4.7 [facility] Comment on above: Performed By: #### C BC #### [facility] [address] [place] [address] Dr. Ashlie Hills Potassium [Moles/Vol] 4.0 mmol/L Normal 3.5-5.1 [facility] Comment on above: Performed By: #### C BC #### [facility] [address] [address] [address] Ashlie Hills Sodium [Moles/Vol] 141 mmol/L Normal 136-145 [facility] Comment on above: Performed By: #### C BC #### [facility] [address] [address] [address] Ashlie Hills Urea nitrogen [Mass/Vol] 17.0 mg/dL Normal 7.0-18.0 [facility] Comment on above: Performed By: #### C BC #### [facility] [address] [place] [address] Dr. Ashlie Hills UA RANDOM W/MICROSCOPICon BACTERIA NONE SEEN Normal NONE SEEN [facility] Comment on above: Performed By: #### I NFLUAB #### [facility] [address] [address] [address] Ashlie Hills Bilirubin Ql (U) Negative Normal NEGATIVE [facility] Comment on above: Performed By: #### I NFLUAB #### [facility] [address] [place] [address] Dr. Ashlie Hills CAST NONE SEEN Normal NONE SEEN [facility] Comment on above: Performed By: #### I NFLUAB #### [facility] [address] [place] [address] Dr. Ashlie Hills Clarity (U) CLEAR Normal CLEAR [facility] Comment on above: Performed By: #### I NFLUAB #### [facility] [address] [place] [address] Dr. Ashlie Hills Color (U) YELLOW Normal YELLOW [facility] Comment on above: Performed By: #### I NFLUAB #### [facility] [address] [place] [address] Dr. Ashlie Hills Crystals LM Nom (Urine sed) NONE SEEN Normal NONE SEEN [facility] Comment on above: Performed By: #### I NFLUAB #### [facility] [address] [place] [address] Dr. Ashlie Hills Epithelial cells LM Ql (Urine sed) FEW Abnormal NONE SEEN /RARE [facility] Comment on above: Performed By: #### I NFLUAB #### [facility] [address] [place] [address] Dr. Ashlie Hills Glucose Ql (U) Negative Normal NEGATIVE [facility] Comment on above: Performed By: #### I NFLUAB #### [facility] [address] [place] [address] Dr. Ashlie Hills Hemoglobin Ql (U) Negative Normal NEGATIVE [facility] Comment on above: Performed By: #### I NFLUAB #### [facility] [address] [place] [address] Dr. Ashlie Hills Ketones Ql (U) Negative Normal NEGATIVE [facility] Comment on above: Performed By: #### I NFLUAB #### [facility] [address] [place] [address] Dr. Ashlie Hills LEUKOCYTES Negative Normal NEGATIVE [facility] Comment on above: Performed By: #### I NFLUAB #### [facility] [address] [place] [address] Dr. Ashlie Hills MUCOUS NONE SEEN Normal NONE SEEN [facility] Comment on above: Performed By: #### I NFLUAB #### [facility] [address] [address] [address] Ashlie Hills Nitrite Ql (U) Negative Normal NEGATIVE [facility] Comment on above: Performed By: #### I NFLUAB #### [facility] [address] [place] [address] Dr. Ashlie Hills pH (U) 5.5 [pH] Normal 5-9 [facility] Comment on above: Performed By: #### I NFLUAB #### [facility] [address] [place] [address] Dr. Ashlie Hills RBC 0-2 Normal 0-2 [facility] Comment on above: Performed By: #### I NFLUAB #### [facility] [address] [place] [address] Dr. Ashlie Hills SPEC GRAVITY >=1.030 Abnormal 1.005-<=1.025 [facility] Comment on above: Performed By: #### I NFLUAB #### [facility] [address] [place] [address] Dr. Ashlie Hills UA PROTEIN 100 mg/dl Abnormal NEGATIVE/ TRACE [facility] Comment on above: Performed By: #### I NFLUAB #### [facility] [address] [place] [address] Dr. Ashlie Hills Urobilinogen Qn (U) 0.2 {Little'U}/dL Normal 0.2 - 1. 0 [facility] Comment on above: Performed By: #### I NFLUAB #### [facility] [address] [place] [address] Dr. Ashlie Hills WBC NONE SEEN Normal NONE SEEN [facility] Comment on above: Performed By: #### I NFLUAB #### [facility] [address] [place] [address] Dr. Ashlie Hills URIC ACID SERUMon 03-03-2022 Urate [Mass/Vol] 5.0 mg/dL Normal 2.6-6.0 [facility] Comment on above: Performed By: #### I NFLUAB #### [facility] [address] [place] [address] Dr. Ashlie Hills URINE T PROTEIN CREAT RATIOo n 03-03-2022 Protein (U) [Mass/Vol] 77.9 mg/dL Critically high <=12.0 [facility] Comment on above: Performed By: #### C VDAGS #### [facility] [address] [place] [address] Dr. Ashlie Hills UR PROT CREAT RAT 0.44 Normal [facility] Comment on above: Performed By: #### C VDAGS #### [facility] [address] [place] [address] Dr. Ashlie Hills URINE CREAT 175.15 mg/dL Normal 20.00-300.00 [facility] Comment on above: Performed By: #### C VDAGS #### [facility] [address] [place] [address] Dr. Ashlie Hills CULTURE URINEon 12-25-2021 CULTURE URINE Culture Observations: GREATER THAN TWO ORGANISMS PRESENT, HEAVILY MIXED. PLEASE RESUBMIT CLEAN CATCH MID-STREAM URINE IF CLINICALLY INDICATED. Normal [facility] Comment on above: Performed By: #### I NFLUAB #### [facility] [address] [place] [address] Dr. Ashlie Hills CBC AUTO DIFFon 12-24-2021 BASO # 0.1 103/ul Normal 0.0-0.1 [facility] Comment on above: Performed By: #### C BC #### [facility] [address] [place] [address] Dr. Ashlie Hills Basophils/100 WBC (Bld) 0.5 % Normal 0.2-2.0 [facility] Comment on above: Performed By: #### C BC #### [facility] [address] [place] [address] Dr. Ashlie Hills EO # 0.4 103/ul Normal 0.0-0.7 [facility] Comment on above: Performed By: #### C BC #### [facility] [address] [address] [address] Ashlie Hills Eosinophils/100 WBC (Bld) 2.4 % Normal 0.9-7.0 [facility] Comment on above: Performed By: #### C BC #### [facility] [address] [place] [address] Dr. Ashlie Hills Erythrocyte distribution width (RBC) [Ratio] 14.1 % Normal 11.0-15.0 [facility] Comment on above: Performed By: #### C BC #### [facility] [address] [place] [address] Dr. Ashlie Hills Hematocrit (Bld) [Volume fraction] 55.9 % Critically high 36.0-48.0 [facility] Comment on above: Performed By: #### C BC #### [facility] [address] [place] [address] Dr. Ashlie Hills Hemoglobin (Bld) [Mass/Vol] 17.9 g/dL Critically high 12.0-16.0 [facility] Comment on above: Performed By: #### C BC #### [facility] [address] [place] [address] Dr. Ashlie Hills IG # 0.06 10e3/ul Critically high 0.00-0.03 [facility] Comment on above: Performed By: #### C BC #### [facility] [address] [place] [address] Dr. Ashlie Hills IG % 0.4 % Normal 0.0-0.5 [facility] Comment on above: Performed By: #### C BC #### [facility] [address] [place] [address] Dr. Ashlie Hills LYMPH # 5.8 103/ul Critically high 1.2-3.8 [facility] Comment on above: Performed By: #### C BC #### [facility] [address] [place] [address] Dr. Ashlie Hills Lymphocytes/100 WBC (Bld) 35.4 % Normal 20.5-60.0 [facility] Comment on above: Performed By: #### C BC #### [facility] [address] [place] [address] Dr. Ashlie Hills MANUAL DIFF REQ NO Normal [facility] Comment on above: Performed By: #### C BC #### [facility] [address] [place] [address] Dr. Ashlie Hills MCH (RBC) [Entitic mass] 29.4 pg Normal 26.7-34.0 [facility] Comment on above: Performed By: #### C BC #### [facility] [address] [place] [address] Dr. Ashlie Hills MCHC (RBC) [Mass/Vol] 32.0 g/dL Normal 29.9-35.2 [facility] Comment on above: Performed By: #### C BC #### [facility] [address] [place] [address] Dr. Ashlie Hills MCV (RBC) [Entitic vol] 91.8 fL Normal 81.0-99.0 [facility] Comment on above: Performed By: #### C BC #### [facility] [address] [place] [address] Dr. Ashlie Hills MONO # 0.8 103/ul Normal 0.3-0.8 [facility] Comment on above: Performed By: #### C BC #### [facility] [address] [place] [address] Dr. Ashlie Hills Monocytes/100 WBC (Bld) 4.8 % Normal 1.7-12.0 [facility] Comment on above: Performed By: #### C BC #### [facility] [address] [place] [address] Dr. Ashlie Hills NEUT # 9.3 103/ul Critically high 1.4-6.5 [facility] Comment on above: Performed By: #### C BC #### [facility] [address] [place] [address] Dr. Ashlie Hills Neutrophils/100 WBC (Bld) 56.5 % Normal 43.0-75.0 [facility] Comment on above: Performed By: #### C BC #### [facility] [address] [place] [address] Dr. Ashlie Hills Platelet mean volume (Bld) [Entitic vol] 12.9 fL Normal 9.5-13.5 [facility] Comment on above: Performed By: #### C BC #### [facility] [address] [place] [address] Dr. Ashlie Hills PLT 127 103/ul Critically low 150-450 [facility] Comment on above: Performed By: #### C BC #### [facility] [address] [address] [address] Ashlie Hills RBC 6.09 106/ul Critically high 4.20-5.40 [facility] Comment on above: Performed By: #### C BC #### [facility] [address] [place] [address] Dr. Ashlie Hills WBC 16.4 103/ul Critically high 4.0-11.0 [facility] Comment on above: Performed By: #### C BC #### [facility] [address] [place] [address] ABD/PELVIS WO CONon [...] Severe right hip degenerative change. Normal [facility] ER URINE PROFILEon 2 Bilirubin Ql (U) Negative Normal NEGATIVE [facility] Comment on above: Performed By: #### MADELINE DIAZRO #### [facility] [address] [place] [address] Dr. Ashlie Hills Clarity (U) CLEAR Normal CLEAR [facility] Comment on above: Performed By: #### EVONNE DIAZ #### [facility] [address] [address] [address] Ashlie Hills Color (U) DK. ORANGE Abnormal YELLOW [facility] Comment on above: Performed By: #### E EVONNE LYMAN #### [facility] [address] [address] [address] Ashlie HOBBS A micrscopic examination will be performed if indicated. Normal [facility] Comment on above: Performed By: #### PEREZ DIAZICRO #### [facility] [address] [place] [address] Dr. Ashlie Hills Glucose Ql (U) 250 mg/dl Abnormal NEGATIVE [facility] Comment on above: Performed By: #### Tracey LYMAN UMICRO #### [facility] [address] [address] [address] Ashlie Hills Hemoglobin Ql (U) Negative Normal NEGATIVE [facility] Comment on above: Performed By: #### Tracey LYMAN UMICRO #### [facility] [address] [place] [address] Dr. Ashlie Hills Ketones Ql (U) Negative Normal NEGATIVE [facility] Comment on above: Performed By: #### Tracey LYMAN UMICRO #### [facility] [address] [place] [address] Dr. Ashlie Hills LEUKOCYTES Negative Normal NEGATIVE [facility] Comment on above: Performed By: #### Tracey LYMAN UMICRO #### [facility] [address] [place] [address] Dr. Ashlie Hills Nitrite Ql (U) Negative Normal NEGATIVE [facility] Comment on above: Performed By: #### Tracey LYMAN UMICRO #### [facility] [address] [place] [address] Dr. Ashlie Hills pH (U) 5.0 [pH] Normal 5-9 [facility] Comment on above: Performed By: #### Tracey LYMAN UMICRO #### [facility] [address] [place] [address] Dr. Ashlie Hills Protein (U) [Mass/Vol] 100 mg/dL Abnormal NEGATIVE/ TRACE [facility] Comment on above: Performed By: #### Tracey LYMAN UMICRO #### [facility] [address] [place] [address] Dr. Ashlie Hills SPEC GRAVITY >=1.030 Abnormal 1.005-<=1.025 [facility] Comment on above: Performed By: #### EVONNE DIAZ #### [facility] [address] [place] [address] Dr. Ashlie Hills UR MICRO IND INDICATED Normal [facility] Comment on above: Performed By: #### EVONNE DIAZ #### [facility] [address] [place] [address] Dr. Ashlie Hills Urobilinogen Qn (U) 1.0 {Little'U}/dL Normal 0.2 - 1. 0 [facility] Comment on above: Performed By: #### EVONNE DIAZ #### [facility] [address] [place] [address] Dr. Ashlie Hills PROF CHEM 8 (BAS METB)on Anion gap [Moles/Vol] 12.1 mmol/L Normal [facility] Comment on above: Performed By: #### I NFLUAB #### [facility] [address] [place] [address] Dr. Ashlie Hills Calcium [Mass/Vol] 9.0 mg/dL Normal 8.5-10.1 [facility] Comment on above: Performed By: #### I NFLUAB #### [facility] [address] [place] [address] Dr. Ashlie Hills Chloride [Moles/Vol] 101 mmol/L Normal 98-107 [facility] Comment on above: Performed By: #### I NFLUAB #### [facility] [address] [place] [address] Dr. Ashlie Hills CO2 [Moles/Vol] 29.1 mmol/L Normal 21.0-32.0 [facility] Comment on above: Performed By: #### I NFLUAB #### [facility] [address] [place] [address] Dr. Ashlie Hills Creatinine [Mass/Vol] 0.86 mg/dL Normal 0.55-1.02 [facility] Comment on above: Performed By: #### I NFLUAB #### [facility] [address] [place] [address] Dr. Ashlie Hills EGFR-AF SINGAPOREAN >60 Normal >=60 [facility] Comment on above: Performed By: #### I NFLUAB #### [facility] [address] [place] [address] Dr. Ashlie Hills EGFR-NON AF SINGAPOREAN >60 Normal >=60 [facility] Comment on above: Performed By: #### I NFLUAB #### [facility] [address] [address] [address] Ashlie Hills Glucose [Mass/Vol] 236 mg/dL Critically high 74-106 [facility] Comment on above: Performed By: #### I NFLUAB #### [facility] [address] [place] [address] Dr. Ashlie Hills Potassium [Moles/Vol] 4.2 mmol/L Normal 3.5-5.1 [facility] Comment on above: Performed By: #### I NFLUAB #### [facility] [address] [address] [address] Ashlie Hills Sodium [Moles/Vol] 138 mmol/L Normal 136-145 [facility] Comment on above: Performed By: #### I NFLUAB #### [facility] [address] [place] [address] Dr. Ashlie Hills Urea nitrogen [Mass/Vol] 11.0 mg/dL Normal 7.0-18.0 [facility] Comment on above: Performed By: #### I NFLUAB #### [facility] [address] [place] [address] Dr. Ashlie Hills Urea nitrogen/Creatinine [Mass ratio] 12.8 mg/mg Normal [facility] Comment on above: Performed By: #### I NFLUAB #### [facility] [address] [place] [address] Dr. Ashlie Hills URINE MICROSCOPIC ONLYon BACTERIA SMALL Abnormal NONE SEEN [facility] Comment on above: Performed By: #### E EVONNE LYMAN #### [facility] [address] [place] [address] Dr. Ashlie Hills Bacteria identified Cx Nom (U) INDICATED Normal [facility] Comment on above: Performed By: #### E RUR, UMICRO #### [facility] [address] [place] [address] Dr. Ashlie Hills CAST NONE SEEN Normal NONE SEEN [facility] Comment on above: Performed By: #### E RUR, UMICRO #### [facility] [address] [address] [address] Ashlie Hills Crystals LM Nom (Urine sed) NONE SEEN Normal NONE SEEN [facility] Comment on above: Performed By: #### E RUR, UMICRO #### [facility] [address] [place] [address] Dr. Ashlie Hills Epithelial cells LM Ql (Urine sed) MODERATE Abnormal NONE SEEN /RARE [facility] Comment on above: Performed By: #### E RUR, UMICRO #### [facility] [address] [place] [address] Dr. Ashlie Hills MUCOUS NONE SEEN Normal NONE SEEN The [facility] Comment on above: Performed By: #### E RUR, UMICRO #### [facility] Laboratory [address] [place] [address] Dr. Ashlie Hills RBC 0-2 Normal 0-2 [facility] Comment on above: Performed By: #### E RUR, UMICRO #### [facility] [address] [place] [address] Dr. Ashlie Hills WBC 0-2 Abnormal NONE SEEN [facility] Comment on above: Performed By: #### E RUR, UMICRO #### [facility] [address] [place] [address] Dr. Ashlie Hills YEAST PRESENT Abnormal NONE SEEN [facility] Comment on above: Performed By: #### E RUR, UMICRO #### [facility] [address] [place] [address] Dr. Ashlie Hills HIP RIGHT 1 OR 2 VWS WITH PE LVISon 07-20-2020 HIP RIGHT 1 OR 2 VWS WITH PELVIS [facility] Department of Radiology [address] [place] [id number] Patient Name: MITZI MACIAS : 1970 Sex: F Age: Race: White Pt. Location: Patient Status: O Ordered Date: 07/20/2020 1:45:00 PM Completed Date: 07/20/2020 01:57 PM Requesting Provider: LIZ EISENBERG Attending Provider: LIZ EISENBERG Report Copy To: MCKAYLA BLAS Signs & Symptoms: M25.551 Pain in right hip I10 History: Ulysses Comments: evaluate Exam: HIP RIGHT 1 OR [...] MRI. Electronically signed: Pipo Acevedo. Transcribed by: [email or web address], User Resident: Electronically Signed by: PIPO ACEVEDO @ 07/20/2020 03:45 PM Normal [facility] Comment on above: Order Comment: evalu ate Vital Signs Date Time Vital Sign Value Performing Clinician Facility 03-08-2022 15:00-0400 Body height 170.18 cm Stephanie Tico Other [employer] Other 03-08-2022 15:00-0400 Body temperature 97.6 [degF] Stephanie Tico Other [employer] Other 03-08-2022 15:00-0400 Diastolic blood pressure 72 mm[Hg] Stephanie Tico Other [employer] Other 03-08-2022 15:00-0400 Respiratory rate 20 /min Stephanie Tico Other [employer] Other 03-08-2022 15:00-0400 SaO2% (BldA) [Mass fraction] 91 % Stephanie Tico Other [employer] Other 03-08-2022 15:00-0400 Systolic blood pressure 131 mm[Hg] Stephanie Tico Other [employer] Other 02-20-2022 09:20-0400 Body height 170.18 cm Stephanie Tico Other [employer] Other 02-20-2022 09:20-0400 Body temperature 96.5 [degF] Stephanie Tico Other [employer] Other 02-20-2022 09:20-0400 Diastolic blood pressure 69 mm[Hg] Stephanie Tico Other [employer] Other 02-20-2022 09:20-0400 Respiratory rate 20 /min Stephanie Tico Other [employer] Other 02-20-2022 09:20-0400 SaO2% (BldA) [Mass fraction] 91 % Stephanie Tico Other [employer] Other 02-20-2022 09:20-0400 Systolic blood pressure 129 mm[Hg] Stephanie Cortés Other [facility] [employer] Other 02-06-2022 10:24-0400 Blood Pressure Location Elbert VARGAS [facility] 02-06-2022 10:24-0400 Diastolic blood pressure 76 mm[Hg] Elbert VARGAS [facility] 02-06-2022 10:24-0400 Heart rate 70 /min Elbert VARGAS [facility] 02-06-2022 10:24-0400 Respiratory rate 16 /min Elbert VARGAS [facility] 02-06-2022 10:24-0400 Systolic blood pressure 134 mm[Hg] Elbert VARGAS 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 Facility:[facility]1 Start: 12-05-2022 End: 12-06-2022 Evaluation and management of inpatient UMBERTO CANTU . Facility:[facility]1 Start: 11-23-2022 End: 11-23-2022 ambulatory SAYDA BLAS Facility:[facility] Start: 11-22-2022 End: 11-23-2022 ambulatory SAYDA BLAS Facility:[facility] Start: 11-17-2022 End: 11-18-2022 ambulatory SUBHASH GASPAR . Facility:[facility]1 Start: 11-15-2022 End: 11-15-2022 Patient encounter procedure SARAH VEGA [facility] Start: 10-05-2022 End: 10-05-2022 ambulatory MARIANO DIAB . Facility:[facility]1 Start: 09-21-2022 End: 09-21-2022 ambulatory SAYDA BLAS Facility:[facility]1 Start: 09-14-2022 ambulatory RAFAEL GONGORA Facilit y:H1 Start: 08-24-2022 End: [address] CHAPARRO Loera Facility:[facility]1 Start: 08-21-2022 End: 08-22-2022 [facility] Start: 07-27-2022 End: 07-28-2022 ambulatory CECILIA TORRES . Facility:[facility]1 Start: 07-18-2022 End: 07-19-2022 ambulatory CECILIA Loera Facility:[facility]1 Start: 07-18-2022 End: 07-19-2022 ambulatory PETER Braulio BRODERICK Facility:H1 Start: 07-06-2022 End: 07-06-2022 ambulatory SAYDA BLAS Facility:[facility]1 Start: 05-11-2022 End: 05-12-2022 ambulatory GIL VALENZUELA . Facility:[facility]1 Start: 04-25-2022 End: 04-25-[address] CHAPARRO MORTENSEN . Facility:[facility]1 Start: 04-20-2022 End: 04-21-2022 ambulatory GIL VALENZUELA . 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 Start: 01-19-2022 End: 01-20-2022 ambulatory GIL VALENZUELA . Facility:[facility]1 Start: 12-24-2021 End: 12-24-2021 ambulatory OLE RAMIREZ Facility:[facility]1 Start: 08-26-2020 End: 09-10-2020 Patient encounter procedure MARY TAVERAS Facility:[facility] Start: 10-30-2019 End: 10-30-2019 Emergency department patient visit JAMES Reis [facility] Start: 10-30-2019 End: 10-30-2019 Emergency department patient visit James Desouza [facility] Emergency Department Start: 11-02-2016 Preoperative state Stephanie Tico Other [employer] Other Procedures Date Procedure Procedure Detail Performing Clinician Start: 11-22-2022 Mammography Mckayla clifford NP Work Phone: Start: 10-08-2015 Microscopic observat ion [Identifier] in Cervix by Cyto stain Mckayla Blas NP Work Phone: H/O: hysterectomy Elbert LARA Laparoscopic cholecystectomy Elbert VARGAS Operative procedure on foot Elbert VARGAS Plan of Treatment Date Care Activity Detail Author Start: 08-03-2025 Screening for malign ant neoplasm of colon [facility] Start: 11-24-2023 Urine screening for protein Diabetes: Urine Protein Screening [facility] Start: 11-23-2023 Screening for malign ant neoplasm of breast Mammogram [facility] Start: 10-15-2023 End: 10-15-2023 Patient encounter procedure 10/15/2023 4:30 PM EDT Office Visit [facility] [address] [place] [address] Mckayla Blas, SILVANO [address] [place] [id number] [facility] Start: 08-09-2023 Hemoglobin A1c measurement Diabetes: Hemoglobin A1C [facility] Start: 05-27-2021 Glaucoma screening Diabetes: R etinopathy Screening [facility] Start: 03-09-2020 Influenza vaccination Flu vacc ine (Season Ended) [place], [place] Start: 10-07-2018 Screening for malign ant neoplasm of cervix [facility] Start: 2010 Lipid panel Lipid screen [place], [place] Start: 2000 Screening for malign ant neoplasm of cervix HPV/Cotest [facility] Start: 1991 Screening for malign ant neoplasm of cervix Cervical cancer screen [place], [place] Start: 1989 DTaP/Tdap/Td vaccine ( - Tdap) DTaP/Tdap/Td vaccine ( - Tdap) [place], [place] Start: 1985 HIV screening HIV screen Shantelle Alvarado [place], [place] Start: 1970 Medicare Annual Well ness (AWV) Medicare Annual Wellness (AWV) [facility] Start: 1970 Screening for malign ant neoplasm of colon [facility] Immunizations Immunization Date Immunization Notes Care Provider [facility] 05-18-2023 influenza, injectabl e, quadrivalent, contains preservative 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 10-28-2020 SARS-CoV-2 (COVID-19 ) mRNA BNT-162b2 vax Audience [facility] 10-08-2020 SARS-CoV-2 (COVID-19 ) mRNA BNT-162b2 vax Audience [facility] Payers Date Payer Category Payer Private Health Insurance [id number] 2023 Medicare [id number] 2018 Medicaid MEDICAID [facility] [id number] 2018-Present [phone] [address] [place] [address] Medicaid [id number] 2017 Medicare [facility] MEDICARE [facility] DUAL COMPLETE [id number] 2017-Present [address] [place] [address] [id number]. [id number] 1970 Unknown [id number] 2.16.840.1.227743.3.579.2. 647 1970 Unknown [id number] 2.16.840.1.772507.3.579.2. 593 1970 Unknown [id number] 2.16.840.1.956789.3.579.2. 593 1970 Unknown [id number] 2.16.840.1.895729.3.579.2. 593 1970 Unknown [id number] 2.16.840.1.132111.3.579.2. 593 1970 Unknown [id number] 2.16.840.1.066474.3.579.2. 593 1970 Unknown [id number] 2.16.840.1.721837.3.579.2. 593 1970 Unknown [id number] 2.16.840.1.372548.3.579.2. 593 1970 Unknown [id number] 2.16.840.1.357366.3.579.2. 593 1970 Unknown [id number] 2.16.840.1.524486.3.579.2. 593 1970 Unknown [id number] 2.16.840.1.304011.3.579.2. 593 1970 Unknown [id number] 2.16.840.1.632662.3.579.2. 593 1970 Unknown [id number] 2.16.840.1.398665.3.579.2. 593 1970 Unknown [id number] 2.16.840.1.943108.3.579.2. 593 1970 Unknown [id number] 2.16.840.1.323630.3.579.2. 593 1970 Unknown [id number] 2.16.840.1.601648.3.579.2. 593 1970 Unknown [id number] 2.16.840.1.200490.3.579.2. 593 1970 Unknown [id number] 2.16.840.1.010308.3.579.2. 593 1970 Unknown [id number] 2.16.840.1.913157.3.579.2. 593 1970 Unknown [id number] 2.16.840.1.260777.3.579.2. 593 1970 Unknown [id number] 2.16.840.1.064051.3.579.2. 593 1970 Unknown [id number] 2.16.840.1.217830.3.579.2. 593 1970 Unknown [id number] 2.16.840.1.667378.3.579.2. 593 1970 Unknown [id number] 2.16.840.1.535849.3.579.2. 1259 1970 Unknown [id number] 2.16.840.1.050129.3.579.2. 1259 1970 Unknown [id number] 2.16.840.1.044007.3.579.2. 1259 1970 Unknown [id number] 2.16.840.1.950035.3.579.2. 1259 1970 Unknown [id number] 2.16.840.1.345973.3.579.2. 1259 1970 Unknown [id number] 2.16.840.1.639107.3.579.2. 727 1959 Medicaid [id number] 1959 Private Health Insurance [id number] 1959 Unknown [id number] 2.16.840.1.318460.19 Social History Date Type Detail Facility Start: 02-17-2014 End: 07-10-2023 Tobacco smoking status NHIS Current every day smoker [place], [place] Start: 02-17-1994 History of tobacco use Cigarette Smo ker [place] Start: 02-17-2014 End: 07-10-2023 Cigarettes smoked current (pack per day) - Reported [place] Start: 02-17-2014 Alcohol intake Current drinke r of alcohol (finding) [place] Start: 02-17-2014 Alcohol Comment Rare [place] Start: 1970 Sex Assigned At Not on file [place] Exposure to SARS-CoV -2 (event) Unable to assess [place] Start: 02-06-2022 Tobacco smoking status Smoker (findi ng) [facility] Start: 07-10-2023 Sex Assigned At Female [facility] Start: 11-15-2022 Tobacco smoking status Heavy t obacco smoker (finding) [facility] Start: 07-10-2023 Tobacco use and exposure Smoke less tobacco non-user [facility] Start: 07-10-2023 Alcohol intake Lifetime non-d adrien (finding) [facility] Within the last year , have you been afraid of your partner or ex-partner? No [facility] Do you belong to any clubs or organizations such as jew groups, unions, fraternal or athletic groups, or [...] (one) time each day. Use as instructed [id number] Functional Status Date Assessment Result Facility 11-15-2022 Functional Status N/A [facility] 02-06-2022 Functional Status N/A [facility] Clinical Notes 01-19-2022 to 11-14-2023 Note Date & Type Note Facility 11-14-2023 Note [place] [facility] Subjective Mitzi Macias is a 53 y.o. year old female being seen as new patient to establish care. Ref from Mckayla Blas CNP for pulmonary hypertension. She had echo in Aug 2023 while inpatient at [facility] for pneumonia and COPD exacerbation. Denies chest [...] was admitted in early 2023 to the [facility] with hypoxemia and treated as [...] wheelchair Skin: Gene (more content not included)... [facility] 11-15-2022 Hospital Discharg e instructions Patient Education [...] include: ?8 oz (237 mL) of milk, crcpvnx-umotdweveprb-vqnnw milk, and calcium-fortifiedfruit juice. Calcium-fortified means that [...] ?Spinach (cooked), rhubarb, beets, sweet potatoes, and Icelandic chard. ?Peanuts. ?Potato chips, namibian fries, and baked potatoes with skin on. [...] magnesium, fish oil, or vitamin B6. Take dycy-wwp-muzzkhq and prescription medicines only as told by [...] Casseroles. Pizza. Lasagna. Frozen meals. Potato chips. Belgian fries. The items listed above may not [...] provider. Document Revised: 03/06/2022 Document Reviewed: 03/06/2022 [employer] Patient Education 2022 LMN-1. Follow Up Care 02/06/2022 11:44:09 With:SARAH VEGA PA-C, URL Address: [address] [place] [place] [address] When: Unknown [facility] 08-24-2022 Note CONSULTATION CONSULTATION DATE: 08/24/2022 [...] We maintain her on pain medication with [place] 5/325 t.i.d., diclofenac 75 mg b.i.d. Her [...] her at this point. A refill for [place] 5/325 t.i.d. and diclofenac 75 mg b.i.d. will be sent to the pharmacy. Vitamin compliance and nutrition were discussed and enforced. I did highly encourage her to use exercise bands to increase the strength in her lower extremities. We will see her in three months' time, unless otherwise indicated, and patient agrees. [facility] 05-11-2022 Note CONSULTATION CONSULTATION DATE: [...] 150. Medications include Lyrica 300 mg b.i.d., [place] 5/325 t.i.d., diclofenac 75 mg b.i.d. and [...] her medications today. We will maintain Lyrica, [place] and diclofenac at the set dose and frequency. We will follow-up in the clinic in three months' time. The patient is in agreement to this. Vitamin importance and nutrition were discussed. [facility] 04-20-2022 Note CONSULTATION CONSULTATION DATE: [...] medications include Tylenol, Lyrica 300 mg b.i.d., [place] 5/325 t.i.d., amitriptyline, diclofenac and duloxetine. Patient's [...] be followed up in the clinic. [facility] 03-08-2022 Evaluation note Encounter Date [...] to the DANIEL. Thrombocytopenia is unclear etiology. [employer] Other 08-15-2022 Evaluation note* Encounter Date Diagnosis [...] follow with Dr. Souza and Dr. Vargas. [employer] Other 08-01-2022 Hospital Discharge instructions Patient Education [...] fried and sweet foods. General instructions Take ujgr-fzq-gzaavek and prescription medicines only as told by [...] 04/21/2010 Document Revised: 10/16/2019 Document Reviewed: 07/11/2018 [employer] Patient Education 2020 LMN-1. Follow Up Care 01/05/2022 12:02:03 With:REGLA PHIPPS, Elbert Joya, URL Address: [facility] [address], [facility] [place] [phone] When:Within 6 Month(s) Comments:w/ repeat CT A/P [facility] 07-14-2022 NoteCONSULTATION PROCEDURE DATE: 01/19/2022 PRE [...] pattern and the patient tolerated it well. [facility] Signed and Approved by: GIL VALENZUELA . 01/27/2022 14:15:00[facility]07-14-2022 NoteCONSULTATION CONSULTATION DATE: 01/19/2022 This is [...] today. Medications include Lyrica 300 mg b.i.d., [place] 5/325 t.i.d., diclofenac 75 mg b.i.d. and [...] in three months' time unless otherwise indicated. [facility] Signed and Approved by: GIL VALENZUELA . 01/27/2022 14:15:00[facility] HospitalEvaluation + Plan note Future Appointments Appointment Date:08/14/2022 09:15:00 AM Scheduled Provider:Elbert VARGAS MD Location:[facility] Appointment Type:URO Office Visit [facility] evaluation + Plan note Future Appointments Appointment Date:04/22/2024 10:00:00 AM Scheduled Provider:SARAH VEGA PA-C Location:[facility] Appointment Type:URO Office Visit [facility] evaluation note* Diagnosis Type 2 diabetes mellitus with unspecified complications (CMS/[facility]) Edema, unspecified Edema documented in this encounter [...] PROTEINURIA Medical History SMOKER Surgical History hysterectomy 2003 Surgical History toe surgery Surgical History LAPAROSCOPIC CHOLECYSTECTOMY Hospitalization History sepsis 2010 Hospitalization History SEE ABOVE [employer] Other Hospital course Narrative No data available for this section [facility] progress note No data available for this section [facility] reason for referral (narrative) , Referral to Dr. 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 [employer] provides no warranty or guarantee of the accuracy or completeness of information in this document.
--- NOTE | 2024-04-04 18:49 | XR_ITS ---
The [address] [address] Patient Name: SINA NICHOLE MRN: [id number] date: 1970 Sex: F Assigned Patient Location: ER Current Patient Location: .[facility] Accession/Order Number: [id number] Exam Date: 04/04/2024 18:56 Report Date: 04/04/2024 20:11 At the request of: KARISHMA LEONE Procedure: XR ankle RT min 3V EXAM: XR ankle RT min 3V HISTORY: osteomyelitis right ankle pain, edema. COMPARISON: None. TECHNIQUE: AP, oblique, lateral x-ray right ankle. FINDINGS: Diffuse edema. There is a focal subcutaneous lucency probable ulceration measuring approximately 1 cm. Located lateral to the ulna anteriorly. Approximately 6 cm proximal to the ankle joint.. Normal mineralization of the adjacent fibula, no evidence of adjacent osteomyelitis.. . Faint vascular calcification. No fracture or healing fracture. No bony erosion or destruction or periosteal reaction or other evidence of osteomyelitis. No joint effusion. Mild degenerative changes around the ankles, normal symmetric mortise. Joint space narrowing spurring throughout the mid foot consistent with DJD. Calcaneal spurs posterior inferior. Subtalar joint is poorly visualized. XR/XR ankle RT min 3V IMPRESSION: Subcutaneous lucency probable ulceration lower leg anterior lateral, proximal to the ankle joint. No adjacent bony abnormality or osteomyelitis. No fracture or healing fracture. Degenerative changes ankle and midfoot. Diffuse subcutaneous edema. Electronically authenticated by: KASIA FRANK Date: 04/04/2024 20:11
--- NOTE | 2024-04-04 18:51 | ED_ITS ---
HPI HPI - General Adult General Chief complaint: Skin/Abscess/Foreign Body Stated complaint: OPEN WOUND ABOVE ANKLE Time Seen by Provider: 04/04/24 18:23 Source: patient Mode of arrival: Wheelchair History of Present Illness HPI narrative: Patient is a 53-year-old female with a history of diabetes, peripheral neuropathy, chronic pain who presents to the ER for evaluation of 2 small wounds above the right ankle. She states these wounds were healing and scabbed over, she states she noticed some increase in swelling to her lower extremities and the scabbed areas opened. Her was changing dressings for the area and placed a dressing 2 days ago. Today they change the dressing and noted possible maggots to the area. Patient states that she became very scared and they came to the ER. No new fevers or vomiting. She has chronic neuropathy to the lower extremities, she is unaware of any new or worsening pain. Related Data Home Medications ?Medication ?Instructions ?Recorded ?Confirmed acetaminophen 500 mg capsule 1,000 mg PO Q6H PRN fever or pain 03/20/23 11/27/23 amitriptyline 25 mg tablet 25 mg PO DAILY 03/20/23 11/27/23 aspirin 81 mg tablet,delayed 81 mg PO DAILY 03/20/23 11/27/23 release (Adult Aspirin Regimen) budesonide-formoterol HFA 160 2 inh inhalation BID 03/20/23 11/27/23 mcg-4.5 mcg/actuation aerosol inhaler (Symbicort) furosemide 40 mg tablet 40 mg PO DAILY 03/20/23 11/27/23 insulin aspart U-100 100 unit/mL 1 sliding scale dose subcut 03/20/23 11/27/23 (3 mL) subcutaneous pen (Novolog USEASDIRECTD FlexPen U-100 Insulin aspart) insulin glargine 100 unit/mL 58 unit subcut BID 03/20/23 11/27/23 subcutaneous solution (Lantus U-100 Insulin) lisinopril 20 mg tablet 20 mg PO DAILY 03/20/23 11/27/23 omeprazole 20 mg capsule,delayed 20 mg PO DAILY 03/20/23 11/27/23 release pregabalin 300 mg capsule 300 mg PO Q12H 03/20/23 11/27/23 dapagliflozin propanediol 10 mg 10 mg PO .QD 09/10/23 11/27/23 tablet ergocalciferol (vitamin D2) 1,250 50,000 unit PO QWEEK 09/10/23 11/27/23 mcg (50,000 unit) capsule potassium chloride 10 mEq 10 meq PO .QD 09/10/23 11/27/23 capsule,extended release simvastatin 10 mg tablet 10 mg PO QAM 09/10/23 11/27/23 Previous Rx's ?Medication ?Instructions ?Recorded duloxetine 60 mg capsule,delayed 60 mg PO BID #60 caps 04/05/23 release hydrocodone 5 mg-acetaminophen 325 1 tab PO TID PRN pain #90 tabs 09/04/23 mg tablet hydralazine 25 mg tablet 25 mg PO BID #60 tabs 09/13/23 oseltamivir 75 mg capsule 75 mg PO BID #6 caps 09/13/23 hydrocodone 5 mg-acetaminophen 325 1 tab PO TID PRN pain #90 tabs 11/08/23 mg tablet hydrocodone 5 mg-acetaminophen 325 1 tab PO TID PRN pain #90 tabs 12/06/23 mg tablet hydrocodone 5 mg-acetaminophen 325 1 tab PO TID PRN pain #90 tabs 01/09/24 mg tablet hydrocodone 5 mg-acetaminophen 325 1 tab PO TID PRN pain #90 tabs 02/07/24 mg tablet hydrocodone 5 mg-acetaminophen 325 1 tab PO TID PRN pain #90 tabs 03/06/24 mg tablet hydrocodone 5 mg-acetaminophen 325 1 tab PO TID PRN pain #90 tabs 04/02/24 mg tablet amoxicillin 875 mg-potassium 1 tab PO Q12H #20 tabs 04/04/24 clavulanate 125 mg tablet Allergies Allergy/AdvReac Type Severity Reaction Status Date / Time No Known Drug Allergies Allergy Verified 11/27/23 09:57 Opioid HPI Opioid Management Most Recent Opioid Data: Last Pain Scale 8 04/04/24 19:39 Last Pain Intensity 0 09/12/23 11:19 Last MAR Pain Assessment 04/04/24 19:39 Review of Systems ROS Constitutional Denies: fever or chills Ears, nose, mouth, and throat Denies: nasal congestion Respiratory Denies: shortness of breath Gastrointestinal Denies: abdominal pain, nausea or vomiting Musculoskeletal Reports: extremity swelling Integumentary/Breast Reports: redness and skin pain; Denies: rash Hematologic/Lymphatic Denies: easy bruising or easy bleeding PFSH [facility] Medical History Hypertension ?I10 - Essential (primary) hypertension (ICD-10) Obesity ?E66.9 - Obesity, unspecified (ICD-10) Amputation toe ?S98.139A - Complete traumatic amputation of one unspecified lesser toe, initial encounter (ICD-10) Neuropathy ?G62.9 - Polyneuropathy, unspecified (ICD-10) Acid reflux ?K21.9 - Gastro-esophageal reflux disease without esophagitis (ICD-10) Diabetes ?E11.9 - Type 2 diabetes mellitus without complications (ICD-10) COPD (chronic obstructive pulmonary disease) ?J44.9 - Chronic obstructive pulmonary disease, unspecified (ICD-10) Asthma ?J45.909 - Unspecified asthma, uncomplicated (ICD-10) High cholesterol ?E78.00 - Pure hypercholesterolemia, unspecified (ICD-10) Surgical History History of hammertoe correction ?Z98.890 - Other specified postprocedural states (ICD-10) ?Z87.39 - Personal history of other diseases of the musculoskeletal system and connective tissue (ICD-10) Hx of cholecystectomy ?Z90.49 - Acquired absence of other specified parts of digestive tract (ICD- 10) History of hysterectomy ?Z90.710 - Acquired absence of both cervix and uterus (ICD-10) Social History Within the past year, how often did you have a drink containing alcohol: never Score interpretation: A score less than 3 is consistent with normal alcohol consumption. Smoking status: Former smoker Highest level of school completed/degree received: Associate degree: occupational, technical, vocational program Exam Narrative Exam Narrative: Gen.: Awake, alert, in no distress Head: Normocephalic, atraumatic ENT: Moist mucous membranes Respiratory: No respiratory distress Extremities: 2 small ulcerated areas to the right lateral ankle, proximal to the joint. Minimal surrounding blanching erythema. No fluctuance. No maggots noted. Psych: Normal mood and affect Neuro: No focal neuro deficit Skin: Warm, dry, intact Constitutional Vital Signs, click to edit/add: Last Vital Signs Temp 98.6 F 04/04/24 18:18 Pulse 86 04/04/24 20:31 Resp 18 04/04/24 20:31 BP 189/90 H 04/04/24 20:31 Pulse Ox 92 L 04/04/24 20:31 O2 Del Method Room Air 04/04/24 20:31 Course Vital Signs Vital signs: Vital Signs Temperature 98.6 F 04/04/24 18:18 Pulse Rate 87 04/04/24 18:18 Respiratory Rate 18 04/04/24 18:18 Blood Pressure 154/86 H 04/04/24 18:18 Pulse Oximetry 94 L 04/04/24 18:18 Oxygen Delivery Method Room Air 04/04/24 18:18 Temperature 98.6 F 04/04/24 18:18 Pulse Rate 86 04/04/24 20:31 Respiratory Rate 18 04/04/24 20:31 Blood Pressure 189/90 H 04/04/24 20:31 Pulse Oximetry 92 L 04/04/24 20:31 Oxygen Delivery Method Room Air 04/04/24 20:31 Medical Decision Making MDM Narrative Medical decision making narrative: X-rays with no evidence of osteomyelitis or abscess. The area was cleansed and dressed, there are no noted worms or maggots in the wounds. Patient with white blood cell count 14.1, normal lactic acid and stable mildly elevated inflammatory markers. Case discussed with Dr. Ba, he recommends Betadine swabs for home with follow-up in wound care next week. Patient started on Augmentin and given wound care instructions for home. Return to the ER if symptoms change or worsen. SUPERVISED APC VISIT, PHYSICIAN ATTESTATION: Based on the medical record the care appears appropriate. ? Medical Records Medical records reviewed: Yes I reviewed the patient's medical records Lab Data Lab results reviewed: Yes I reviewed the patient's lab results Labs: Lab Results 04/04/24 Range/Units 19:00 WBC 14.1 H (4.0-11.0) 10^3/uL RBC 5.74 H (4.20-5.40) 10^6/uL Hgb 16.7 H (12.0-16.0) g/dL Hct 52.4 H (36.0-48.0) % MCV 91.3 (81.0-99.0) fL MCH 29.1 (26.7-34.0) pg MCHC 31.9 (29.9-35.2) g/dL RDW 14.5 (11.0-15.0) % Plt Count 135 L (150-450) 10^3/uL MPV 12.9 (9.5-13.5) fL Neut % (Auto) 65.4 (43.0-75.0) % Lymph % (Auto) 27.0 (20.5-60.0) % Platte % (Auto) 4.5 (1.7-12.0) % Eos % (Auto) 2.3 (0.9-7.0) % Baso % (Auto) 0.4 (0.2-2.0) % Neut # (Auto) 9.2 H (1.4-6.5) 10^3/uL Lymph # (Auto) 3.8 (1.2-3.8) 10^3/uL [place]atte # (Auto) 0.6 (0.3-0.8) 10^3/uL Eos # (Auto) 0.3 (0.0-0.7) 10^3/uL Baso # (Auto) 0.1 (0.0-0.1) 10^3/uL Abs Immat Gran (auto) 0.05 H (0.00-0.03) 10^3/uL Imm/Tot Granulo (auto) 0.4 (0.0-0.5) % ESR 68 H (<=30) mm/hr Sodium 139 (136-145) mmol/L Potassium 4.2 (3.5-5.1) mmol/L Chloride 100 (98-107) mmol/L Carbon Dioxide 32.5 H (21.0-32.0) mmol/L Anion Gap 10.7 BUN 15.0 (7.0-18.0) mg/dL Creatinine 0.74 (0.55-1.02) mg/dL Est GFR ( Amer) >60 (>=60) Est GFR (Non-Af Amer) >60 (>=60) BUN/Creatinine Ratio 20.3 Glucose 218 H (74-106) mg/dL Lactate 1.9 (0.4-2.0) mmol/L Calcium 9.3 (8.5-10.1) mg/dL Total Bilirubin 0.4 (0.2-1.0) mg/dL AST 19 (15-37) U/L ALT 22 (14-59) U/L Alkaline Phosphatase 77 (46-116) U/L C-Reactive Protein 3.55 H (<=0.50) mg/dL Total Protein 7.0 (6.4-8.2) g/dL Albumin 2.9 L (3.4-5.0) g/dL Globulin 4.1 g/dL Albumin/Globulin Ratio 0.7 Imaging Data XR ankle: Attestation: I have reviewed the pertinent imaging results. Radiologist's impression: ITS Impressions Ankle X-Ray 04/04/24 18:49 IMPRESSION: Subcutaneous lucency probable ulceration lower leg anterior lateral, proximal to the ankle joint. No adjacent bony abnormality or osteomyelitis. No fracture or healing fracture. Degenerative changes ankle and midfoot. Diffuse subcutaneous edema. Electronically authenticated by: KASIA FRANK Date: 04/04/2024 20:11 Discharge Plan Discharge Chief Complaint: Skin/Abscess/Foreign Body Clinical Impression: Wound infection Patient Disposition: Home, Self-Care Time of Disposition Decision: 20:02 Condition: Good Prescriptions / Home Meds: New amoxicillin-pot clavulanate 875-125 mg tablet 1 tab PO Q12H Qty: 20 0RF No Action hydrocodone-acetaminophen 5-325 mg tablet 1 tab PO TID PRN (Reason: pain) Qty: 90 0RF Rx Instructions: MUST LAST 30 DAYS hydrocodone-acetaminophen 5-325 mg tablet 1 tab PO TID PRN (Reason: pain) Qty: 90 0RF Rx Instructions: MUST LAST 30 DAYS hydrocodone-acetaminophen 5-325 mg tablet 1 tab PO TID PRN (Reason: pain) Qty: 90 0RF hydrocodone-acetaminophen 5-325 mg tablet 1 tab PO TID PRN (Reason: pain) Qty: 90 0RF acetaminophen 500 mg capsule 1,000 mg PO Q6H PRN (Reason: fever or pain) aspirin [Adult Aspirin Regimen] 81 mg tablet,delayed release (DR/EC) 81 mg PO DAILY amitriptyline 25 mg tablet 25 mg PO DAILY insulin glargine [Lantus U-100 Insulin] 100 unit/mL solution 58 unit subcut BID furosemide 40 mg tablet 40 mg PO DAILY lisinopril 20 mg tablet 20 mg PO DAILY pregabalin 300 mg capsule 300 mg PO Q12H insulin aspart U-100 [Novolog FlexPen U-100 Insulin] 100 unit/mL (3 mL) insulin pen 1 sliding scale dose subcut USEASDIRECTD budesonide-formoterol [Symbicort] 160-4.5 mcg/actuation HFA aerosol inhaler 2 inh inhalation BID omeprazole 20 mg capsule,delayed release(DR/EC) 20 mg PO DAILY duloxetine 60 mg capsule,delayed release(DR/EC) 60 mg PO BID Qty: 60 0RF dapagliflozin propanediol 10 mg tablet 10 mg PO .QD ergocalciferol (vitamin D2) 1,250 mcg (50,000 unit) capsule 50,000 unit PO QWEEK potassium chloride 10 mEq capsule, extended release 10 meq PO .QD simvastatin 10 mg tablet 10 mg PO QAM hydralazine 25 mg Tablet 25 mg PO BID Qty: 60 11RF oseltamivir 75 mg Capsule 75 mg PO BID Qty: 6 0RF Protocol: Tamiflu (1-12 yrs) Condition: Weight < 15kg Dose/Route: 30 mg Instruction: PO Condition: Weight 15-23 kg Dose/Route: 45 mg Instruction: PO Condition: Weight 24-40 kg Dose/Route: 60 mg Instruction: PO Condition: Weight > 41 kg Dose/Route: 75 mg Instruction: PO hydrocodone-acetaminophen 5-325 mg tablet 1 tab PO TID PRN (Reason: pain) Qty: 90 0RF Rx Instructions: MUST LAST 30 DAYS hydrocodone-acetaminophen 5-325 mg tablet 1 tab PO TID PRN (Reason: pain) Qty: 90 0RF hydrocodone-acetaminophen 5-325 mg tablet 1 tab PO TID PRN (Reason: pain) Qty: 90 0RF Print Language: Romanian Instructions: Acute Wounds (ED) Additional Instructions: Please call Dr. Ba's office on Sunday morning for a wound care appointment Referrals: Mckayla Blas NP [Primary Care Provider] - 1 week Ivan Ba DPM [Physician] - As soon as possible Discharge Date/Time: 04/04/24 20:33
[2024-04-04 19:12] LABS: Basophils Absolute Auto 0.1 10^3/uL (0.0-0.1); Basophils Percent Auto 0.4 % (0.2-2.0); Eosinophils Absolute Auto 0.3 10^3/uL (0.0-0.7); Eosinophils Percent Auto 2.3 % (0.9-7.0); Hematocrit 52.4 % (36.0-48.0); Hemoglobin 16.7 g/dL (12.0-16.0); Immature Granulocytes Abs Auto 0.05 10^3/uL (0.00-0.03); Immature Granulocytes Pct Auto 0.4 % (0.0-0.5); Lymphocytes Absolute Auto 3.8 10^3/uL (1.2-3.8); Mean Corpuscular HGB Conc 31.9 g/dL (29.9-35.2); Mean Corpuscular Hemoglobin 29.1 pg (26.7-34.0); Mean Corpuscular Volume 91.3 fL (81.0-99.0); Mean Platelet Volume 12.9 fL (9.5-13.5); Monocytes Absolute Auto 0.6 10^3/uL (0.3-0.8); Monocytes Percent Auto 4.5 % (1.7-12.0); Neutrophils Absolute Auto 9.2 10^3/uL (1.4-6.5); Neutrophils Percent Auto 65.4 % (43.0-75.0); Platelet Count 135 10^3/uL (150-450); Red Blood Count 5.74 10^6/uL (4.20-5.40); Red Cell Distribution Width 14.5 % (11.0-15.0); White Blood Count 14.1 10^3/uL (4.0-11.0)
[2024-04-04 19:23] LABS: Erythrocyte Sedimentation Rate 68 mm/hr (<=30)
[2024-04-04 19:30] LABS: Lactate/Lactic Acid 1.9 mmol/L (0.4-2.0)
[2024-04-04 19:37] LABS: Alanine Aminotransferase 22 U/L (14-59); Albumin Globulin Ratio 0.7; Albumin Level 2.9 g/dL (3.4-5.0); Alkaline Phosphatase 77 U/L (46-116); Anion Gap 10.7; Aspartate Amino Transferase 19 U/L (15-37); BUN Creatinine Ratio 20.3; Bilirubin Total 0.4 mg/dL (0.2-1.0); C Reactive Protein 3.55 mg/dL (<=0.50); Calcium 9.3 mg/dL (8.5-10.1); Carbon Dioxide 32.5 mmol/L (21.0-32.0); Chloride 100 mmol/L (98-107); Estimated GFR (African America >60 (>=60); Estimated GFR (Non-African Ame >60 (>=60); Globulin 4.1 g/dL; Glucose 218 mg/dL (74-106); Potassium 4.2 mmol/L (3.5-5.1); Sodium 139 mmol/L (136-145)
[2024-04-04] MEDS: OXYCODONE HCL/ACETAMINOPHEN 5MG/325MG 1 TAB PO (19:39)
[2024-04-04 20:11] VITALS: BP 160/82; PULSE 80; O2SAT 92
[2024-04-04] MEDS: AMOXICILLIN/POT CLAV 875-125 MG TABLET 1 TAB PO (20:21)
[2024-04-04 20:31] VITALS: BP 189/90; PULSE 86; O2SAT 92
== END 2024-04-04 20:33 | disposition home or self-care (01) ==
PROVIDERS: Physician Assistant; Emergency Provider Emergency Medicine; PCP Nurse Practitioner
DX: S91.001A Unspecified open wound, right ankle, initial encounter (principal); L08.9 Local infection of the skin and subcutaneous tissue, unspecified; E11.42 Type 2 diabetes mellitus with diabetic polyneuropathy; Z79.4 Long term (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; Z87.891 Personal history of nicotine dependence
CPT/HCPCS: 36415; 73610; 80053; 83605; 85025; 85652; 86140; 99284

== ENCOUNTER 2024-04-09 13:03 | Outpatient (OUT) | payer MEDICARE, OTHER, SELFPAY ==
--- OUTSIDE RECORDS SUMMARY | 2024-04-09 13:23 | XMS_ITS | CCD ---
Author Organization [facility] Care Team Providers Care Naturopathic Doctor Name Role Phone James Desouza Primary Care Provider JAMES DESOUZA Primary Care Unavailable SHENDGE, VITHAL Admitting Unavailable SHENDGE, VITHAL Attending Unavailable AICHHOLZ, MCKAYLA Primary Care Unavailable AICHHOLZ, MCKAYLA Referring Unavailable AICHHOLZ, MCKAYLA J Primary Care Physician Tico, Stephanie Unavailable OLE RAMIREZ Attending Unavailable OLE RAMIREZ Consulting Unavailable AICHHOLZ, TEASEL SETTER MCKAYLA Primary Care Unavailable OLE RAMIREZ Admitting Unavailable ANTONY SHRESTHA Consulting Unavailable ALONDRA ., UMBERTO Admitting Unavailable ALONDRA ., UMBERTO Attending Unavailable AICHHOLZ, TEASEL SETTER MCKAYLA Primary Care Unavailable AFSANEH Loera, DR BOLANOS Consulting Unavailable MARYANNE POWER Consulting Unavailable GLENN KERR Consulting Unavailable YOMAIRA KERR Consulting Unavailable HATTIE GOFF Consulting Unavailable ALONDRA ., UMBERTO Consulting Unavailable TICO, STEPHANIE Attending Unavailable TICO, STEPHANIE Consulting Unavailable AICHHOLZ, TEASEL SETTER MCKAYLA Primary Care Unavailable TICO, STEPHANIE Admitting Unavailable REGLA ., DR DUMONT Admitting Unavailable AICHHOLZ, TEASEL SETTER MCKAYLA Primary Care Unavailable REGLA ., DR DUMONT Attending Unavailable VARGAS ., DR DUMONT Consulting Unavailable COLLIN HUERTAS Consulting Unavailable CECILIA KAUFMAN Admitting Unavailable CECILIA KAUFMAN Attending Unavailable AICHHOLZ, TEASEL SETTER MCKAYLA Primary Care Unavailable RAFAEL GONGORA Attending Unavailable RAFAEL GONGORA Admitting Unavailable AICHHOLZ, TEASEL SETTER MCKAYLA Primary Care Unavailable AICHHOLZ, TEASEL SETTER MCKAYLA Admitting Unavailable AICHHOLZ, TEASEL SETTER MCKAYLA Primary Care Unavailable AICHHOLZ, TEASEL SETTER MCKAYLA Attending Unavailable AICHHOLZ, TEASEL SETTER MCKAYLA Consulting Unavailable LAKSHMIPATHY ., NARENDRANATH Attending Anette vailable LAKSHMIPATHY ., NARENDRANATH Consulting Anette vailable LAKSHMIPATHY ., NARENDRANATH Admitting Anette vailable AICHHOLZ, TEASEL SETTER MCKAYLA Primary Care Unavailable VALENZUELA ., GIL Consulting Unavailable MORTENSEN ., DR CHAPARRO Aguillon Attending Unavailable MORTENSEN ., DR CHAPARRO Aguillon Admitting Unavailable AICHHOLZ, TEASEL SETTER MCKAYLA Primary Care Unavailable VALENZUELA ., GIL Consulting Unavailable MORTENSEN ., DR CHAPARRO Aguillon Admitting Unavailable AICHHOLZ, TEASEL SETTER MCKAYLA Primary Care Unavailable MORTENSEN ., DR CHAPARRO Aguillon Attending Unavailable HALKER ., SUBHASH Consulting Unavailable LAKSHMIPATHY ., NARENDRANATH Admitting Anette vailable LAKSHMIPATHY ., NARENDRANATH Attending Anette vailable AICHHOLZ, TEASEL SETTER MCKAYLA Primary Care Unavailable MORTENSEN ., DR CHAPARRO Aguillon Attending Unavailable MORTENSEN ., DR CHAPARRO Aguillon Admitting Unavailable VALENZUELA ., GIL Consulting Unavailable AICHHOLZ, TEASEL SETTER MCKAYLA Primary Care Unavailable VALENZUELA ., GIL Consulting Unavailable MORTENSEN ., DR CHAPARRO Aguillon Attending Unavailable MORTENSEN ., DR CHAPARRO Aguillon Admitting Unavailable AICHHOLZ, TEASEL SETTER MCKAYLA Primary Care Unavailable HATTIE BRODERICK Attending Unavailable HATTIE BRODERICK Admitting Unavailable AICHHOLZ, TEASEL SETTER MCKAYLA Primary Care Unavailable AICHHOLZ, TEASEL SETTER MCKAYLA Admitting Unavailable AICHHOLZ, TEASEL SETTER MCKAYLA Consulting Unavailable AICHHOLZ, TEASEL SETTER MCKAYLA Primary Care Unavailable AICHHOLZ, TEASEL SETTER MCKAYLA Attending Unavailable AICHHOLZ, TEASEL SETTER MCKAYLA Primary Care Unavailable MISC, DR LESLIE Admitting Unavailable MISC, DR LESLIE Attending Unavailable MISC, DR LESLIE Consulting Unavailable DIAB ., MARIANO Admitting Unavailable DIAB ., MARIANO Attending Unavailable DIAB ., MARIANO Consulting Unavailable AICHHOLZ, TEASEL SETTER MCKAYLA Primary Care Unavailable RASTEGAR, RICCO Consulting Unavailable AICHHOLZ, TEASEL SETTER MCKAYLA Admitting Unavailable AICHHOLZ, TEASEL SETTER MCKAYLA Primary Care Unavailable AICHHOLZ, TEASEL SETTER MCKAYLA Attending Unavailable AICHHOLZ, TEASEL SETTER MCKAYLA Consulting Unavailable DR PATRICIA IVAN Consulting Unavailable TAMLYN ., CECILIA Attending Unavailable TAMLYN ., CECILIA Admitting Unavailable DR PATRICIA IVAN Consulting Unavailable AICHHOLZ, TEASEL SETTER MCKAYLA Primary Care Unavailable TAMLYN ., CECILIA Consulting Unavailable MORTENSEN ., DR CHAPARRO Aguillon Attending Unavailable FESTUS ., DR CHAPARRO Aguillon Consulting Unavailable FESTUS ., DR CHAPARRO Aguillon Admitting Unavailable AICHHOLZ, TEASEL SETTER MCKAYLA Primary Care Unavailable HATTIE RBODERICK Attending Unavailable HATTIE BRODERICK Consulting Unavailable HATTIE BORDERICK Admitting Unavailable AICHHOLZ, TEASEL SETTER MCKAYLA Primary Care Unavailable HATTIE BAUTISTA Unavailable AICHHOLZ, TEASEL SETTER MCKAYLA Admitting Unavailable AICHHOLZ, TEASEL SETTER MCKAYLA Attending Unavailable AICHHOLZ, TEASEL SETTER MCKAYLA Consulting Unavailable AICHHOLZ, TEASEL SETTER MCKAYLA Primary Care Unavailable Ty Amin MD [...] Medication Allergies] Propensity to adverse reactions (disorder) [facility] Medications Current Medications Medication Drug Class(es) Dates Sig (Normalized) Sig (Original) acetaminophen 325 mg / HYDROcodone bitartrate 5 mg oral tablet (6 sources) Opioid Agonist Start: 02-06-2022 acetaminophen-hydr ocodone 325 mg-5 mg oral tablet Refill(s) 0 Start Date: 02/06/22 Status: Ordered HYDROcodone-acet aminophen (Marianna) 5-325 MG tablet 1 tablet 3 (three) times a day as needed for severe pain. 0 Active take 1 tablet by vandana twice daily as needed Marianna 5-325 MG 1 tablet as needed Orally [...] every week ergocalciferol (Vitamin D-2) 1.25 MG (44648 UT) capsule Take 1.25 mg by mouth [...] 02-06-2022 Chronic Other aftercare (1 source) Other medical terminologist (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 therapy; 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: [OTH ASSISTED CURRENT DRUG THERAPY] Onset: 12-05-2022 Episodic Other aftercare (1 source) detention (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; 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: [ACCOUNTING ADMINISTRATOR CURRENT USE OF ASPIRIN] Onset: 12-05-2022 Episodic Other aftercare (1 source) intermodal customer service (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; 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: [ASSISTED CURRENT [...] ocumentation in Social History. Unclassified (1 source) ACCOUNTING ADMINISTRATOR INJECT NONINSULN ANTIDIAB; 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: [ASSISTED INJECT NONINSULN ANTIDIAB] Onset: 12-05-2022 Unclassified (3 [...] Range Facility Office Visiton 11-14-2023 Follow-up visit [id number] Mitzi Macias 1970 F Date Provider Department Center 11/14/2023 BHARAT NICOLE [facility] Family History Problem Relation Age of Onset Heart attack Paternal Grandmother Family Status - Relation Status Age at Paternal Grandmother Level of Service:08756 [facility] OFFICE/OUTPATIENT NEW LOW MDM 30 MINUTES Normal [facility] CBC AUTO DIFFon 12-06-2022 BASO # 0.0 103/ul Normal 0.0-0.1 [facility] Comment on above: Performed By: #### C BC #### [facility] [address] [place] [address] Dr. Ashlie Hills Basophils/100 WBC (Bld) 0.1 % Critically low 0.2-2.0 [facility] Comment on above: Performed By: #### C BC #### [facility] [address] [place] [address] Dr. Ashlie Hills EO # 0.0 103/ul Normal 0.0-0.7 [facility] Comment on above: Performed By: #### C BC #### [facility] [address] [place] [address] Dr. Ashlie Hills Eosinophils/100 WBC (Bld) 0.0 % Critically low 0.9-7.0 [facility] Comment on above: Performed By: #### C BC #### [facility] [address] [place] [address] Dr. Ashlie Hills Erythrocyte distribution width (RBC) [Ratio] 14.9 % Normal 11.0-15.0 [facility] Comment on above: Performed By: #### C BC #### [facility] [address] [place] [address] Dr. Ashlie Hills Hematocrit (Bld) [Volume fraction] 46.2 % Normal 36.0-48.0 [facility] Comment on above: Performed By: #### C BC #### [facility] [address] [place] [address] Dr. Ashlie Hills Hemoglobin (Bld) [Mass/Vol] 14.7 g/dL Normal 12.0-16.0 [facility] Comment on above: Performed By: #### C BC #### [facility] [address] [place] [address] Dr. Ashlie Hills IG # 0.06 10e3/ul Critically high 0.00-0.03 [facility] Comment on above: Performed By: #### C BC #### [facility] [address] [place] [address] Dr. Ashlie Hills IG % 0.4 % Normal 0.0-0.5 [facility] Comment on above: Performed By: #### C BC #### [facility] [address] [place] [address] Dr. Ashlie Hills LYMPH # 1.3 103/ul Normal 1.2-3.8 [facility] Comment on above: Performed By: #### C BC #### [facility] [address] [place] [address] Dr. Ashlie Hills Lymphocytes/100 WBC (Bld) 9.4 % Critically low 20.5-60.0 [facility] Comment on above: Performed By: #### C BC #### [facility] [address] [place] [address] Dr. Ashlie Hills MANUAL DIFF REQ NO Normal [facility] Comment on above: Performed By: #### C BC #### [facility] [address] [place] [address] Dr. Ashlie Hills MCH (RBC) [Entitic mass] 28.4 pg Normal 26.7-34.0 [facility] Comment on above: Performed By: #### C BC #### [facility] [address] [place] [address] Dr. Ashlie Hills MCHC (RBC) [Mass/Vol] 31.8 g/dL Normal 29.9-35.2 [facility] Comment on above: Performed By: #### C BC #### [facility] [address] [place] [address] Dr. Ashlie Hills MCV (RBC) [Entitic vol] 89.4 fL Normal 81.0-99.0 [facility] Comment on above: Performed By: #### C BC #### [facility] [address] [place] [address] Dr. Ashlie Hills MONO # 0.5 103/ul Normal 0.3-0.8 [facility] Comment on above: Performed By: #### C BC #### [facility] [address] [place] [address] Dr. Ashlie Hills Monocytes/100 WBC (Bld) 3.4 % Normal 1.7-12.0 [facility] Comment on above: Performed By: #### C BC #### [facility] [address] [place] [address] Dr. Ashlie Hills NEUT # 11.8 103/ul Critically high 1.4-6.5 [facility] Comment on above: Performed By: #### C BC #### [facility] [address] [place] [address] Dr. Ashlie Hills Neutrophils/100 WBC (Bld) 86.7 % Critically high 43.0-75.0 [facility] Comment on above: Performed By: #### C BC #### [facility] [address] [place] [address] Dr. Ashlie Hills Platelet mean volume (Bld) [Entitic vol] 12.6 fL Normal 9.5-13.5 [facility] Comment on above: Performed By: #### C BC #### [facility] [address] [place] [address] Dr. Ashlie Hills PLT 133 103/ul Critically low 150-450 [facility] Comment on above: Performed By: #### C BC #### [facility] [address] [place] [address] Dr. Ashlie Hills RBC 5.17 106/ul Normal 4.20-5.40 [facility] Comment on above: Performed By: #### C BC #### [facility] [address] [place] [address] Dr. Ashlie Hills WBC 13.6 103/ul Critically high 4.0-11.0 [facility] Comment on above: Performed By: #### C BC #### [facility] [address] [place] [address] Dr. Ashlie Hills MAGNESIUMon 12-06-2022 Magnesium [Mass/Vol] 2.2 mg/dL Normal 1.8-2.4 [facility] Comment on above: Performed By: #### I NFLUAB #### [facility] [address] [place] [address] Dr. Ashlie Hills POINT OF CARE GLUCOSEon 11-08 Glucose [Mass/Vol] 340 mg/dL Critically high 74-106 [facility] Comment on above: Performed By: #### P OCGLUC #### [facility] [address] [place] [address] Dr. Ashlie Hills Glucose [Mass/Vol] 276 mg/dL Critically high 74-106 [facility] Comment on above: Performed By: #### C BC #### [facility] [address] [place] [address] Dr. Ashlie Hills Glucose [Mass/Vol] 333 mg/dL Critically high 74-106 [facility] Comment on above: Performed By: #### C BC #### [facility] [address] [place] [address] Dr. Ashlie Hills PROF CHEM 8 (BAS METB)on Anion gap [Moles/Vol] 10.9 mmol/L Normal [facility] Comment on above: Performed By: #### I NFLUAB #### [facility] [address] [place] [address] Dr. Ashlie Hills Calcium [Mass/Vol] 9.3 mg/dL Normal 8.5-10.1 [facility] Comment on above: Performed By: #### I NFLUAB #### [facility] [address] [place] [address] Dr. sAhlie Hills Chloride [Moles/Vol] 103 mmol/L Normal 98-107 [facility] Comment on above: Performed By: #### I NFLUAB #### [facility] [address] [place] [address] Dr. Ashlie Hills CO2 [Moles/Vol] 31.2 mmol/L Normal 21.0-32.0 [facility] Comment on above: Performed By: #### I NFLUAB #### [facility] [address] [place] [address] Dr. Ashlie Hills Creatinine [Mass/Vol] 0.96 mg/dL Normal 0.55-1.02 [facility] Comment on above: Performed By: #### I NFLUAB #### [facility] [address] [place] [address] Dr. Ashlie Hills EGFR-AF SAUDI ARABIAN >60 Normal >=60 [facility] Comment on above: Performed By: #### I NFLUAB #### [facility] [address] [place] [address] Dr. Ashlie Hills EGFR-NON AF SAUDI ARABIAN >60 Normal >=60 [facility] Comment on above: Performed By: #### I NFLUAB #### [facility] [address] [place] [address] Dr. Ashlie Hills Glucose [Mass/Vol] 288 mg/dL Critically high 74-106 [facility] Comment on above: Performed By: #### I NFLUAB #### [facility] [address] [place] [address] Dr. Ashlie Hills Potassium [Moles/Vol] 5.1 mmol/L Normal 3.5-5.1 [facility] Comment on above: Performed By: #### I NFLUAB #### [facility] [address] [place] [address] Dr. Ashlie Hills Sodium [Moles/Vol] 140 mmol/L Normal 136-145 [facility] Comment on above: Performed By: #### I NFLUAB #### [facility] [address] [place] [address] Dr. Ashlie Hills Urea nitrogen [Mass/Vol] 30.0 mg/dL Critically high 7.0-18.0 [facility] Comment on above: Performed By: #### I NFLUAB #### [facility] [address] [place] [address] Dr. Ashlie Hills Urea nitrogen/Creatinine [Mass ratio] 31.2 mg/mg Normal [facility] Comment on above: Performed By: #### I NFLUAB #### [facility] [address] [place] [address] Dr. Ashlie Hills CBC AUTO DIFFon 12-05-2022 BASO # 0.0 103/ul Normal 0.0-0.1 [facility] Comment on above: Performed By: #### C BC #### [facility] [address] [place] [address] Dr. Ashlie Hills Basophils/100 WBC (Bld) 0.4 % Normal 0.2-2.0 [facility] Comment on above: Performed By: #### C BC #### [facility] [address] [place] [address] Dr. Ashlie Hills EO # 0.0 103/ul Normal 0.0-0.7 [facility] Comment on above: Performed By: #### C BC #### [facility] [address] [place] [address] Dr. Ashlie Hilsl Eosinophils/100 WBC (Bld) 0.0 % Critically low 0.9-7.0 [facility] Comment on above: Performed By: #### C BC #### [facility] [address] [place] [address] Dr. Ashlie Hills Erythrocyte distribution width (RBC) [Ratio] 14.8 % Normal 11.0-15.0 [facility] Comment on above: Performed By: #### C BC #### [facility] [address] [place] [address] Dr. Ashlie Hills Hematocrit (Bld) [Volume fraction] 49.9 % Critically high 36.0-48.0 [facility] Comment on above: Performed By: #### C BC #### [facility] [address] [place] [address] Dr. Ashlie Hills Hemoglobin (Bld) [Mass/Vol] 15.7 g/dL Normal 12.0-16.0 [facility] Comment on above: Performed By: #### C BC #### [facility] [address] [place] [address] Dr. Ashlie Hills IG # 0.04 10e3/ul Critically high 0.00-0.03 [facility] Comment on above: Performed By: #### C BC #### [facility] [address] [place] [address] Dr. Ashlie Hills IG % 0.5 % Normal 0.0-0.5 [facility] Comment on above: Performed By: #### C BC #### [facility] [address] [place] [address] Dr. Ashlie Hills LYMPH # 1.1 103/ul Critically low 1.2-3.8 [facility] Comment on above: Performed By: #### C BC #### [facility] [address] [place] [address] Dr. Ashlie Hills Lymphocytes/100 WBC (Bld) 12.7 % Critically low 20.5-60.0 [facility] Comment on above: Performed By: #### C BC #### [facility] [address] [place] [address] Dr. Ashlie Hills MANUAL DIFF REQ NO Normal [facility] Comment on above: Performed By: #### C BC #### [facility] [address] [place] [address] Dr. Ashlie Hills MCH (RBC) [Entitic mass] 28.1 pg Normal 26.7-34.0 [facility] Comment on above: Performed By: #### C BC #### [facility] [address] [place] [address] Dr. Ashlie Hills MCHC (RBC) [Mass/Vol] 31.5 g/dL Normal 29.9-35.2 [facility] Comment on above: Performed By: #### C BC #### [facility] [address] [place] [address] Dr. Ashlie Hills MCV (RBC) [Entitic vol] 89.3 fL Normal 81.0-99.0 [facility] Comment on above: Performed By: #### C BC #### [facility] [address] [place] [address] Dr. Ashlie Hills MONO # 0.1 103/ul Critically low 0.3-0.8 [facility] Comment on above: Performed By: #### C BC #### [facility] [address] [place] [address] Dr. Ashlie Hills Monocytes/100 WBC (Bld) 1.3 % Critically low 1.7-12.0 [facility] Comment on above: Performed By: #### C BC #### [facility] [address] [place] [address] Dr. Ashlie Hills NEUT # 7.2 103/ul Critically high 1.4-6.5 [facility] Comment on above: Performed By: #### C BC #### [facility] [address] [place] [address] Dr. Ashlie Hills Neutrophils/100 WBC (Bld) 85.1 % Critically high 43.0-75.0 [facility] Comment on above: Performed By: #### C BC #### [facility] [address] [place] [address] Dr. Ashlie Hills Platelet mean volume (Bld) [Entitic vol] 12.2 fL Normal 9.5-13.5 [facility] Comment on above: Performed By: #### C BC #### [facility] [address] [place] [address] Dr. Ashlie Hills PLT 116 103/ul Critically low 150-450 [facility] Comment on above: Performed By: #### C BC #### [facility] [address] [place], [place] [address] Dr. Ashlie Hills RBC 5.59 106/ul Critically high 4.20-5.40 [facility] Comment on above: Performed By: #### C BC #### [facility] [address] [place] [id number] Ashlie Hills WBC 8.5 103/ul Normal 4.0-11.0 [facility] Comment on above: Performed By: #### C BC #### [facility] [address] [place], [place] [address] Dr. Ashlie Hills CTA CHEST WO W [...] by: HATTIE GOFF Date: 2022-12-05 01:52 Normal [facility] MAGNESIUMon 12-05-2022 Magnesium [Mass/Vol] 2.1 mg/dL Normal 1.8-2.4 [facility] Comment on above: Performed By: #### P OCGLUC #### [facility] [address] [place] [address] [address] Ashlie Hills POINT OF CARE GLUCOSEon 11-08 Glucose [Mass/Vol] 293 mg/dL Critically high 74-106 [facility] Comment on above: Performed By: #### P OCGLUC #### [facility] [address] [place] [address] Dr. Ashlie Hills Glucose [Mass/Vol] 269 mg/dL Critically high -106 [facility] Comment on above: Performed By: #### P OCGLUC #### [facility] [address] [place] [address] [address] Ashlie Hills Glucose [Mass/Vol] 223 mg/dL Critically high -106 [facility] Comment on above: Performed By: #### C VDAGS #### [facility] [address] [place] [address] Dr. Ashlie Hills PROF CHEM 8 (BAS METB)on Anion gap [Moles/Vol] 11.6 mmol/L Normal [facility] Comment on above: Performed By: #### P OCGLUC #### [facility] [address] [place] [address] Dr. Ashlie Hills Calcium [Mass/Vol] 9.2 mg/dL Normal 8.5-10.1 [facility] Comment on above: Performed By: #### P OCGLUC #### [facility] [address] [place] [address] Dr. Ashlie Hills Chloride [Moles/Vol] 102 mmol/L Normal 98-107 [facility] Comment on above: Performed By: #### P OCGLUC #### [facility] [address] [place] [address] Dr. Ahslie Hills CO2 [Moles/Vol] 28.7 mmol/L Normal 21.0-32.0 [facility] Comment on above: Performed By: #### P OCGLUC #### [facility] [address] [place] [address] [address] Ashlie Hills Creatinine [Mass/Vol] 1.04 mg/dL Critically high 0.55-1.02 [facility] Comment on above: Performed By: #### P OCGLUC #### [facility] [address] [place] [address] [address] Ashlie Hills EGFR-AF SAUDI ARABIAN >60 Normal >=60 [facility] Comment on above: Performed By: #### P OCGLUC #### [facility] [address] [place] [address] [address] Ashlie Hills EGFR-NON AF SAUDI ARABIAN 56 mL/min/1.73m2 Critically low >=60 [facility] Comment on above: Performed By: #### P OCGLUC #### [facility] [address] [place] [address] [address] Ashlie Hills Glucose [Mass/Vol] 231 mg/dL Critically high 74-106 [facility] Comment on above: Performed By: #### P OCGLUC #### [facility] [address] [address] [address] Ashlie Hills Potassium [Moles/Vol] 4.3 mmol/L Normal 3.5-5.1 [facility] Comment on above: Performed By: #### P OCGLUC #### [facility] [address] [place] [address] [address] Ashlie Hills Sodium [Moles/Vol] 138 mmol/L Normal 136-145 [facility] Comment on above: Performed By: #### P OCGLUC #### [facility] [address] [place] [address] [address] Ashlie Hills Urea nitrogen [Mass/Vol] 17.0 mg/dL Normal 7.0-18.0 [facility] Comment on above: Performed By: #### P OCGLUC #### [facility] [address] [address] [address] Ashlie Hills Urea nitrogen/Creatinine [Mass ratio] 16.3 mg/mg Normal [facility] Comment on above: Performed By: #### P OCGLUC #### [facility] [address] [place] [address] Dr. Ashlie [place] RESPIRATORY PANEL PLUSon Adenovirus Not detected Normal NOT DETECTED [facility] Comment on above: Performed By: #### C VDAGS #### [facility] [address] [place] [address] Dr. Ashlie Hills B. Parapertusis Not detected Normal NOT DETECTED [facility] Comment on above: Performed By: #### C VDAGS #### [facility] [address] [place] [address] Dr. Ashlie Hills B. Pertussis Not detected Normal NOT DETECTED [facility] Comment on above: Performed By: #### C VDAGS #### [facility] [address] [place] [address] Dr. Ashlie Hills Chlamydia Pneumoniae Not detected Normal NOT DETECTED [facility] Comment on above: Performed By: #### C VDAGS #### [facility] [address] [place] [address] Dr. Ashlie Hills Coronavirus 229E Not detected Normal NOT DETECTED [facility] Comment on above: Performed By: #### C VDAGS #### [facility] [address] [place] [address] Dr. Ashlie Hills Coronavirus HKU1 Not detected Normal NOT DETECTED [facility] Comment on above: Performed By: #### C VDAGS #### [facility] [address] [place] [address] Dr. Ashlie Hills Coronavirus NL63 Not detected Normal NOT DETECTED [facility] Comment on above: Performed By: #### C VDAGS #### [facility] [address] [place] [address] Dr. Ashlie Hills Coronavirus OC43 Not detected Normal NOT DETECTED [facility] Comment on above: Performed By: #### C VDAGS #### [facility] [address] [place] [address] Dr. Ashlie Hills Influenza A H1 Not detected Normal NOT DETECTED [facility] Comment on above: Performed By: #### C VDAGS #### [facility] [address] [place] [address] Dr. Ashlie Hills Influenza A H1 2009 Not detected Normal NOT DETECTED [facility] Comment on above: Performed By: #### C VDAGS #### [facility] [address] [address] [address] Ashlie Hills Influenza A H3 Not detected Normal NOT DETECTED [facility] Comment on above: Performed By: #### C VDAGS #### [facility] [address] [address] [address] Ashlie Hills Influenza B Not detected Normal NOT DETECTED [facility] Comment on above: Performed By: #### C VDAGS #### [facility] [address] [place] [address] Dr. Ashlie Hills Metapneumovirus Not detected Normal NOT DETECTED [facility] Comment on above: Performed By: #### C VDAGS #### [facility] [address] [place] [address] Dr. Ashlie Hills Mycoplas. Pneumoniae Not detected Normal NOT DETECTED [facility] Comment on above: Performed By: #### C VDAGS #### [facility] [address] [place] [address] Dr. Ashlie Hills Parainfluenza 1 Not detected Normal NOT DETECTED [facility] Comment on above: Performed By: #### C VDAGS #### [facility] [address] [place] [address] Dr. Ashlie Hills Parainfluenza 2 Not detected Normal NOT DETECTED [facility] Comment on above: Performed By: #### C VDAGS #### [facility] [address] [place] [address] Dr. Ashlie Hills Parainfluenza 3 Detected Abnormal NOT DETECTED [facility] Comment on above: Performed By: #### C VDAGS #### [facility] [address] [address] [address] Ashlie Hills Parainfluenza 4 Not detected Normal NOT DETECTED [facility] Comment on above: Performed By: #### C VDAGS #### [facility] [address] [place] [address] Dr. Ashlie Hills Rhino/Enterovirus Not detected Normal NOT DETECTED [facility] Comment on above: Performed By: #### C VDAGS #### [facility] [address] [place] [address] Dr. Ashlie Hills RP2 Header 1 RESPIRATORY PANEL: VIRUSES Normal [facility] Comment on above: Performed By: #### C VDAGS #### [facility] [address] [place] [address] Dr. Ashlie Hills RP2 Header 2 RESPIRATORY PANEL: BACTERIA Normal [facility] Comment on above: Performed By: #### C VDAGS #### [facility] [address] [place] [address] Dr. Ashlie Hills RSV Not detected Normal NOT DETECTED [facility] Comment on above: Performed By: #### C VDAGS #### [facility] [address] [place] [address] Dr. Ashlie Hills SARS-CoV-2 (COVID-19) RNA MADDY+probe Ql (Unsp spec) Not detected Normal NOT DETECTED [facility] Comment on above: Performed By: #### C VDAGS #### [facility] [address] [place] [address] Dr. Ashlie Hills XR CHEST 1 Von [...] by: MARYANNE POWER Date: 2022-12-04 22:23 Normal [facility] BLOOD GASES BTYon 12-04-2022 02 MODE ROOM AIR Normal [facility] Comment on above: Performed By: #### C BC #### [facility] [address] [address] [address] Ashlie Hills ALLENS TEST Positive Normal [facility] Comment on above: Performed By: #### C BC #### [facility] [address] [place] [address] Dr. Ashlie Hills Base excess Calc (Bld) [Moles/Vol] 5.4 mmol/L Critically high -2.0-2.0 [facility] Comment on above: Performed By: #### C BC #### [facility] [address] [place] [address] Dr. Ashlie Hills BIPAP PRESSURE Normal [facility] Comment on above: Performed By: #### C BC #### [facility] [address] [place] [address] Dr. Ashlie Hills CPAP [facility] Comment on above: Performed By: #### C BC #### [facility] [address] [place] [address] Dr. Ashlie Hills FIO2 [facility] Comment on above: Performed By: #### C BC #### [facility] [address] [place] [address] Dr. Ashlie Hills HCO3 (Bld) [Moles/Vol] 30.8 mmol/L Critically high 22.0-26.0 [facility] Comment on above: Performed By: #### C BC #### [facility] [address] [place] [address] Dr. Ashlie Hills LPM Normal [facility] Comment on above: Performed By: #### C BC #### [facility] [address] [place] [address] Dr. Ashlie Hills MINUTE VOLUME Normal [facility] Comment on above: Performed By: #### C BC #### [facility] [address] [place] [address] Dr. Ashlie Hills Oxygen (Bld) [Partial pressure] 46.3 mm[Hg] Critically low 80.0-100.0 [facility] Comment on above: Performed By: #### C BC #### [facility] [address] [place] [address] Dr. Ashlie Hills Oxygen saturation in Blood 83.9 % Critically low 95.0-100.0 [facility] Comment on above: Performed By: #### C BC #### [facility] [address] [place] [address] Dr. Ashlie Hills PCO2 54.2 mmHg Critically high 35.0-45.0 [facility] Comment on above: Performed By: #### C BC #### [facility] [address] [place] [address] Dr. Ashlie Hills PEEP [facility] Comment on above: Performed By: #### C BC #### [facility] [address] [place] [address] Dr. Ashlie Hills pH (Bld) 7.363 [pH] Normal 7.350-7.450 [facility] Comment on above: Performed By: #### C BC #### [facility] [address] [place] [address] Dr. Ashlie Hills [facility] Comment on above: Performed By: #### C BC #### [facility] [address] [place] [address] Dr. Ashlie Hills PS [facility] Comment on above: Performed By: #### C BC #### [facility] [address] [place] [address] Dr. Ashlie Hills PUNCTURE SITE LR [facility] Comment on above: Performed By: #### C BC #### [facility] [address] [place] [address] Dr. Ashlie Hills RATE [facility] Comment on above: Performed By: #### C BC #### [facility] [address] [place] [address] Dr. Ashlie Hills VENT MODE [facility] Comment on above: Performed By: #### C BC #### [facility] [address] [place] [address] Dr. Ashlie Hills [facility] Comment on above: Performed By: #### C BC #### [facility] [address] [place] [address] Dr. Ashlie Hills BNPon 12-04-2022 Natriuretic peptide B (Bld) [Mass/Vol] 76.0 pg/mL Normal <=900.0 [facility] Comment on above: Performed By: #### P OCGLUC #### [facility] [address] [place] [address] Dr. Ashlie Hills CBC AUTO DIFFon 12-04-2022 BASO # 0.1 103/ul Normal 0.0-0.1 [facility] Comment on above: Performed By: #### C BC #### [facility] [address] [place] [address] Dr. Ashlie Hills Basophils/100 WBC (Bld) 0.6 % Normal 0.2-2.0 [facility] Comment on above: Performed By: #### C BC #### [facility] [address] [place] [address] Dr. Ashlie Hills EO # 0.2 103/ul Normal 0.0-0.7 [facility] Comment on above: Performed By: #### C BC #### [facility] [address] [place] [address] Dr. Ashlie Hills Eosinophils/100 WBC (Bld) 1.9 % Normal 0.9-7.0 [facility] Comment on above: Performed By: #### C BC #### [facility] [address] [place] [address] Dr. Ashlie Hills Erythrocyte distribution width (RBC) [Ratio] 15.0 % Normal 11.0-15.0 [facility] Comment on above: Performed By: #### C BC #### [facility] [address] [place] [address] Dr. Ashlie Hills Hematocrit (Bld) [Volume fraction] 49.1 % Critically high 36.0-48.0 [facility] Comment on above: Performed By: #### C BC #### [facility] [address] [place] [address] Dr. Ashlie Hills Hemoglobin (Bld) [Mass/Vol] 15.6 g/dL Normal 12.0-16.0 [facility] Comment on above: Performed By: #### C BC #### [facility] [address] [place] [address] Dr. Ashlie Hills IG # 0.02 10e3/ul Normal 0.00-0.03 [facility] Comment on above: Performed By: #### C BC #### [facility] [address] [place] [address] Dr. Ashlie Hills IG % 0.2 % Normal 0.0-0.5 [facility] Comment on above: Performed By: #### C BC #### [facility] [address] [place] [address] Dr. Ashlie Hills LYMPH # 2.8 103/ul Normal 1.2-3.8 [facility] Comment on above: Performed By: #### C BC #### [facility] [address] [place] [address] Dr. Ashlie Hills Lymphocytes/100 WBC (Bld) 29.9 % Normal 20.5-60.0 [facility] Comment on above: Performed By: #### C BC #### [facility] [address] [place] [address] Dr. Ashlie Hills MANUAL DIFF REQ NO Normal [facility] Comment on above: Performed By: #### C BC #### [facility] [address] [place] [address] Dr. Ashlie Hills MCH (RBC) [Entitic mass] 28.5 pg Normal 26.7-34.0 [facility] Comment on above: Performed By: #### C BC #### [facility] [address] [place] [address] Dr. Ashlie Hills MCHC (RBC) [Mass/Vol] 31.8 g/dL Normal 29.9-35.2 [facility] Comment on above: Performed By: #### C BC #### [facility] [address] [place] [address] Dr. Ashlie Hills MCV (RBC) [Entitic vol] 89.8 fL Normal 81.0-99.0 [facility] Comment on above: Performed By: #### C BC #### [facility] [address] [place], [place] [id number] Dr. Ashlie Hills MONO # 1.0 103/ul Critically high 0.3-0.8 [facility] Comment on above: Performed By: #### C BC #### [facility] [address] [place] [address] Dr. Ashlie Hills Monocytes/100 WBC (Bld) 10.6 % Normal 1.7-12.0 [facility] Comment on above: Performed By: #### C BC #### [facility] [address] [place] [address] Dr. Ashlie Hills NEUT # 5.3 103/ul Normal 1.4-6.5 [facility] Comment on above: Performed By: #### C BC #### [facility] [address] [place] [address] Dr. Ashlie Hills Neutrophils/100 WBC (Bld) 56.8 % Normal 43.0-75.0 [facility] Comment on above: Performed By: #### C BC #### [facility] [address] [place] [address] Dr. Ashlie Hills Platelet mean volume (Bld) [Entitic vol] 12.5 fL Normal 9.5-13.5 [facility] Comment on above: Performed By: #### C BC #### [facility] [address] [place] [address] Dr. Ashlie Hills PLT 109 103/ul Critically low 150-450 [facility] Comment on above: Performed By: #### C BC #### [facility] [address] [place] [address] Dr. Ashlie Hills RBC 5.47 106/ul Critically high 4.20-5.40 [facility] Comment on above: Performed By: #### C BC #### [facility] [address] [place] [address] Dr. Ashlie Hills WBC 9.4 103/ul Normal 4.0-11.0 [facility] Comment on above: Performed By: #### C BC #### [facility] [address] [place] [address] Dr. Ashlie Hills PROF 14(COMP METB)on 023 Albumin [Mass/Vol] 2.9 g/dL Critically low 3.4-5.0 [facility] Comment on above: Performed By: #### C BC #### [facility] [address] [place] [address] Dr. Ashlie Hills Albumin/Globulin [Mass ratio] 0.6 {ratio} Normal [facility] Comment on above: Performed By: #### C BC #### [facility] [address] [place] [address] Dr. Ashlie Hills ALP [Catalytic activity/Vol] 64 U/L Normal 46-116 [facility] Comment on above: Performed By: #### C BC #### [facility] [address] [place] [address] Dr. Ashlie Hills ALT [Catalytic activity/Vol] 16 U/L Normal 14-59 [facility] Comment on above: Performed By: #### C BC #### [facility] [address] [place] [address] Dr. Ashlie Hills Anion gap [Moles/Vol] 9.6 mmol/L Normal [facility] Comment on above: Performed By: #### C BC #### [facility] [address] [place] [address] Dr. Ashlie Hills AST [Catalytic activity/Vol] 16 U/L Normal 15-37 [facility] Comment on above: Performed By: #### C BC #### [facility] [address] [place] [address] Dr. Ashlie Hills Bilirubin [Mass/Vol] 0.5 mg/dL Normal 0.2-1.0 [facility] Comment on above: Performed By: #### C BC #### [facility] [address] [place] [address] Dr. Ashlie Hills Calcium [Mass/Vol] 8.7 mg/dL Normal 8.5-10.1 [facility] Comment on above: Performed By: #### C BC #### [facility] [address] [place] [address] Dr. Ashlie Hills Chloride [Moles/Vol] 103 mmol/L Normal 98-107 [facility] Comment on above: Performed By: #### C BC #### [facility] [address] [address] [address] Ashlie Hills CO2 [Moles/Vol] 30.7 mmol/L Normal 21.0-32.0 [facility] Comment on above: Performed By: #### C BC #### [facility] [address] [address] [address] Ashlie Hills Creatinine [Mass/Vol] 0.96 mg/dL Normal 0.55-1.02 [facility] Comment on above: Performed By: #### C BC #### [facility] [address] [place] [address] Dr. Ashlie Hills EGFR-AF SAUDI ARABIAN >60 Normal >=60 [facility] Comment on above: Performed By: #### C BC #### [facility] [address] [place] [address] Dr. Ashlie Hills EGFR-NON AF SAUDI ARABIAN >60 Normal >=60 [facility] Comment on above: Performed By: #### C BC #### [facility] [address] [address] [address] Ashlie Hills Globulin (S) [Mass/Vol] 4.7 g/dL Normal [facility] Comment on above: Performed By: #### C BC #### [facility] [address] [place] [address] Dr. Ashlie Hills Glucose [Mass/Vol] 170 mg/dL Critically high 74-106 [facility] Comment on above: Performed By: #### C BC #### [facility] [address] [place] [address] Dr. Ashlie Hills Potassium [Moles/Vol] 4.3 mmol/L Normal 3.5-5.1 [facility] Comment on above: Performed By: #### C BC #### [facility] [address] [place] [address] Dr. Ashlie Hills Protein [Mass/Vol] 7.6 g/dL Normal 6.4-8.2 [facility] Comment on above: Performed By: #### C BC #### [facility] [address] [address] [address] Ashlie Hills Sodium [Moles/Vol] 139 mmol/L Normal 136-145 [facility] Comment on above: Performed By: #### C BC #### [facility] [address] [place] [address] Dr. Ashlie Hills Urea nitrogen [Mass/Vol] 16.0 mg/dL Normal 7.0-18.0 [facility] Comment on above: Performed By: #### C BC #### [facility] [address] [place] [address] Dr. Ashlie Hills Urea nitrogen/Creatinine [Mass ratio] 16.7 mg/mg Normal [facility] Comment on above: Performed By: #### C BC #### [facility] [address] [place] [address] Dr. Ashlie Hills SYMPTOMATIC COVID-19 ANTIGEN on 12-04-2022 EUA Statement SEE BELOW Normal [facility] Comment on above: Result Comment: This test [...] By: #### C VDAGS #### [facility] [address] [place] [address] Dr. Ashlie Hills SARS-CoV-2 (COVID-19) RNA MADDY+probe Ql (Unsp spec) Negative Normal NEGATIVE [facility] Comment on above: Performed By: #### C VDAGS #### [facility] [address] [place] [address] Dr. Ashlie Hills TROPONIN, HIGH SENSITIVITYon 12-04-2022 HSTROP 8.9 pg/mL Normal 4.0-51.3 [facility] Comment on above: Result Comment: CUT- OFF POINTS HAVE BEEN ESTABLISHED BASED ON THE FOURTH UNIVERSAL DEFINITIONS OF MYOCARDIAL INFARCTION. THE UPPER REFERENCE LIMIT (URL) OF TROPONIN, DEFINED THE 99TH PERCENTILE OF cTnI DISTRIBUTION IN A REFERENCE POPULATION, HAS BEEN CONFIRMED THE DECISION THRESHOLD FOR DC DIAGNOSIS. Performed By: #### P OCGLUC #### [facility] [address] [place] [address] Dr. Ashlie Hills MICROALBUMIN, RAND URon - mALB 35.8 mg/dL Critically high <=30.0 [facility] Comment on above: Performed By: #### C VDAGS #### [facility] [address] [place] [address] Dr. Ashlie Hills UA RANDOM W/MICROSCOPICon BACTERIA NONE SEEN Normal NONE SEEN [facility] Comment on above: Performed By: #### C VDAGS #### [facility] [address] [place] [address] Dr. Ashlie Hills Bilirubin Ql (U) Negative Normal NEGATIVE [facility] Comment on above: Performed By: #### C VDAGS #### [facility] [address] [place] [address] Dr. Ashlie Hills CAST SEEN Abnormal NONE [facility] Comment on above: Performed By: #### C VDAGS #### [facility] [address] [place] [address] Dr. Ashlie Hills Clarity (U) CLEAR Normal CLEAR [facility] Comment on above: Performed By: #### C VDAGS #### [facility] [address] [place] [address] Dr. Ashlie Hills Color (U) YELLOW Normal YELLOW [facility] Comment on above: Performed By: #### C VDAGS #### [facility] [address] [place] [address] Dr. Ashlie Hills Crystals LM Nom (Urine sed) NONE SEEN Normal NONE SEEN [facility] Comment on above: Performed By: #### C VDAGS #### [facility] [address] [address] [address] Ashlie Hills Epithelial cells LM Ql (Urine sed) MODERATE Abnormal NONE SEEN /RARE [facility] Comment on above: Performed By: #### C VDAGS #### [facility] [address] [place] [address] Dr. Ashlie Hills Glucose Ql (U) Negative Normal NEGATIVE [facility] Comment on above: Performed By: #### C VDAGS #### [facility] [address] [place] [address] Dr. Ashlie Hills Hemoglobin Ql (U) TRACE-INTACT Abnormal NEGATIVE [facility] Comment on above: Performed By: #### C VDAGS #### [facility] [address] [place] [address] Dr. Ashlie Hills Ketones Ql (U) Negative Normal NEGATIVE [facility] Comment on above: Performed By: #### C VDAGS #### [facility] [address] [place] [address] Dr. Ashlie Hills LEUKOCYTES Negative Normal NEGATIVE [facility] Comment on above: Performed By: #### C VDAGS #### [facility] [address] [place] [address] Dr. Ashlie Hills MUCOUS NONE SEEN Normal NONE SEEN [facility] Comment on above: Performed By: #### C VDAGS #### [facility] [address] [place] [address] Dr. Ashlie Hills Nitrite Ql (U) Negative Normal NEGATIVE [facility] Comment on above: Performed By: #### C VDAGS #### [facility] [address] [place] [address] Dr. Ashlie Hills pH (U) 5.0 [pH] Normal 5-9 [facility] Comment on above: Performed By: #### C VDAGS #### [facility] [address] [place] [address] Dr. Ashlie Hills RBC 0-2 Normal 0-2 [facility] Comment on above: Performed By: #### C VDAGS #### [facility] [address] [place] [address] Dr. Ashlie Hills SPEC GRAVITY 1.030 Abnormal 1.005-<=1.025 [facility] Comment on above: Performed By: #### C VDAGS #### [facility] [address] [place] [address] Dr. Ashlie Hills UA PROTEIN 100 mg/dl Abnormal NEGATIVE/ TRACE [facility] Comment on above: Performed By: #### C VDAGS #### [facility] [address] [place] [address] Dr. Ashlie Hills Urobilinogen Qn (U) 0.2 {Little'U}/dL Normal 0.2 - 1. 0 [facility] Comment on above: Performed By: #### C VDAGS #### [facility] [address] [place] [address] Dr. Ashlie Hills WBC NONE SEEN Normal NONE SEEN [facility] Comment on above: Performed By: #### C VDAGS #### [facility] [address] [place] [address] Dr. Ashlie Hills CBC AUTO DIFFon 11-22-2022 BASO # 0.0 103/ul Normal 0.0-0.1 [facility] Comment on above: Performed By: #### C BC #### [facility] [address] [place] [address] Dr. Ashlie Hills Basophils/100 WBC (Bld) 0.3 % Normal 0.2-2.0 [facility] Comment on above: Performed By: #### C BC #### [facility] [address] [place] [address] Dr. Ashlie Hills EO # 0.4 103/ul Normal 0.0-0.7 [facility] Comment on above: Performed By: #### C BC #### [facility] [address] [place] [address] Dr. Ashlie Hills Eosinophils/100 WBC (Bld) 3.0 % Normal 0.9-7.0 [facility] Comment on above: Performed By: #### C BC #### [facility] [address] [place] [address] Dr. Ashlie Hills Erythrocyte distribution width (RBC) [Ratio] 15.3 % Critically high 11.0-15.0 [facility] Comment on above: Performed By: #### C BC #### [facility] [address] [place] [address] Dr. Ashlie Hills Hematocrit (Bld) [Volume fraction] 52.4 % Critically high 36.0-48.0 [facility] Comment on above: Performed By: #### C BC #### [facility] [address] [place] [address] Dr. Ashlie Hills Hemoglobin (Bld) [Mass/Vol] 16.8 g/dL Critically high 12.0-16.0 [facility] Comment on above: Performed By: #### C BC #### [facility] [address] [place] [address] Dr. Ashlie Hills IG # 0.04 10e3/ul Critically high 0.00-0.03 [facility] Comment on above: Performed By: #### C BC #### [facility] [address] [place] [address] Dr. Ashlie Hills IG % 0.3 % Normal 0.0-0.5 [facility] Comment on above: Performed By: #### C BC #### [facility] [address] [place] [address] Dr. Ashlie Hills LYMPH # 4.5 103/ul Critically high 1.2-3.8 [facility] Comment on above: Performed By: #### C BC #### [facility] [address] [place] [address] Dr. Ashlie Hills Lymphocytes/100 WBC (Bld) 33.2 % Normal 20.5-60.0 [facility] Comment on above: Performed By: #### C BC #### [facility] [address] [place] [address] Dr. Ashlie Hills MANUAL DIFF REQ NO Normal [facility] Comment on above: Performed By: #### C BC #### [facility] [address] [address] [address] Ashlie Hills MCH (RBC) [Entitic mass] 28.0 pg Normal 26.7-34.0 [facility] Comment on above: Performed By: #### C BC #### [facility] [address] [place] [address] Dr. Ashlie Hills MCHC (RBC) [Mass/Vol] 32.1 g/dL Normal 29.9-35.2 [facility] Comment on above: Performed By: #### C BC #### [facility] [address] [place] [address] Dr. Ashlie Hills MCV (RBC) [Entitic vol] 87.3 fL Normal 81.0-99.0 [facility] Comment on above: Performed By: #### C BC #### [facility] [address] [place] [address] Dr. Ashlie Hills MONO # 0.8 103/ul Normal 0.3-0.8 [facility] Comment on above: Performed By: #### C BC #### [facility] [address] [place] [address] Dr. Ashlie Hills Monocytes/100 WBC (Bld) 5.7 % Normal 1.7-12.0 [facility] Comment on above: Performed By: #### C BC #### [facility] [address] [place] [address] Dr. Ashlie Hills NEUT # 7.8 103/ul Critically high 1.4-6.5 [facility] Comment on above: Performed By: #### C BC #### [facility] [address] [place] [address] Dr. Ashlie Hills Neutrophils/100 WBC (Bld) 57.5 % Normal 43.0-75.0 [facility] Comment on above: Performed By: #### C BC #### [facility] [address] [place] [address] Dr. Ashlie Hills Platelet mean volume (Bld) [Entitic vol] 12.0 fL Normal 9.5-13.5 [facility] Comment on above: Performed By: #### C BC #### [facility] [address] [address] [address] Ashlie Hills PLT 152 103/ul Normal 150-450 [facility] Comment on above: Performed By: #### C BC #### [facility] [address] [address] [address] Ashlie Hills RBC 6.00 106/ul Critically high 4.20-5.40 [facility] Comment on above: Performed By: #### C BC #### [facility] [address] [address] [address] Ashlie Hills WBC 13.6 103/ul Critically high 4.0-11.0 [facility] Comment on above: Performed By: #### C BC #### [facility] [address] [place] [address] Dr. Ashlie Hills LIPID PROFILEon 11-22-2022 CHOL-HDL RATIO NORM SEE BELOW Normal [facility] Comment on above: Result Comment: 3.3 - 4.4 LOW RISK 4.4 - 7.1 AVERAGE RISK 7.1 - 11.0 MODERATE RISK >11.0 HIGH RISK Performed By: #### C BC #### [facility] [address] [address] [address] Ashlie Hills Cholesterol [Mass/Vol] 139 mg/dL Normal <=200 [facility] Comment on above: Performed By: #### C BC #### [facility] [address] [place] [address] Dr. Ashlie Hills Cholesterol in HDL [Mass/Vol] 35 mg/dL Critically low 40-60 [facility] Comment on above: Performed By: #### C BC #### [facility] [address] [address] [address] Ashlie Hills Cholesterol in LDL [Mass/Vol] 67.4 mg/dL Normal [facility] Comment on above: Performed By: #### C BC #### [facility] [address] [place] [address] Dr. Ashlie Hills Cholesterol.total/Ch olesterol in HDL [Mass ratio] 4.0 {ratio} Normal [facility] Comment on above: Performed By: #### C BC #### [facility] [address] [address] [address] Ashlie Hills HDL NORMAL > or = 60 mg/dl - LOW CARDIOVASCULAR RISK <40 mg/dl - HIGH CARDIOVASCULAR RISK Normal [facility] Comment on above: Performed By: #### C BC #### [facility] [address] [address] [address] Ashlie Hills LDL CALC NORMAL SEE BELOW Normal [facility] Comment on above: Result Comment: <100 mg/dl OPTIMAL 100 - 129 mg/dl NEAR OR ABOVE OPTIMAL 130 - 159 mg/dl BORDERLINE HIGH 160 - 189 mg/dl HIGH >190 mg/dl VERY HIGH Performed By: #### C BC #### [facility] [address] [address] [address] Ashlie Hills Triglyceride [Mass/Vol] 183 mg/dL Critically high <=150 [facility] Comment on above: Performed By: #### C BC #### [facility] [address] [address] [address] Ashlie Hills VLDL CALC 36.6 mg/dL Normal [facility] Comment on above: Performed By: #### C BC #### [facility] [address] [address] [address] Ashlie Hills MG MAMM SCREEN 3D ALEX CADon 11-22-2022 MG MAMM SCREEN 3D ALEX CAD Patient: MITZI MACIAS Exam Date: 11/22/2022 : 1970 Gender:F Ordering : SAYAD BLAS [facility] Admission #: [id number] Family : Order #: [id number] CLICK HERE TO VIEW EXAM RADIOLOGY REPORT [...] at age 75. LOCATION: [facility] BREAST COMPOSITION: Almost entirely fatty. FINDINGS: [...] 11/22/2022 at 12:09 Normal [facility] PROF 14(COMP METB)on 023 Albumin [Mass/Vol] 3.0 g/dL Critically low 3.4-5.0 [facility] Comment on above: Performed By: #### C BC #### [facility] [address] [place] [address] Dr. Ashlie Hills Albumin/Globulin [Mass ratio] 0.6 {ratio} Normal [facility] Comment on above: Performed By: #### C BC #### [facility] [address] [address] [address] Ashlie Hills ALP [Catalytic activity/Vol] 68 U/L Normal 46-116 [facility] Comment on above: Performed By: #### C BC #### [facility] [address] [address] [address] Ashlie Hills ALT [Catalytic activity/Vol] 14 U/L Normal 14-59 [facility] Comment on above: Performed By: #### C BC #### [facility] [address] [address] [address] Ashlie Hills Anion gap [Moles/Vol] 12.1 mmol/L Normal [facility] Comment on above: Performed By: #### C BC #### [facility] [address] [address] [address] Ashlie Hills AST [Catalytic activity/Vol] 9 U/L Critically low 15-37 [facility] Comment on above: Performed By: #### C BC #### [facility] [address] [address] [address] Ashlie Hills Bilirubin [Mass/Vol] 0.4 mg/dL Normal 0.2-1.0 [facility] Comment on above: Performed By: #### C BC #### [facility] [address] [address] [address] Ashlie Hills Calcium [Mass/Vol] 9.0 mg/dL Normal 8.5-10.1 [facility] Comment on above: Performed By: #### C BC #### [facility] [address] [address] [address] Ashlie Hills Chloride [Moles/Vol] 105 mmol/L Normal 98-107 [facility] Comment on above: Performed By: #### C BC #### [facility] [address] [address] [address] Ashlie Hills CO2 [Moles/Vol] 30.7 mmol/L Normal 21.0-32.0 [facility] Comment on above: Performed By: #### C BC #### [facility] [address] [address] [address] Ashlie Hills Creatinine [Mass/Vol] 0.77 mg/dL Normal 0.55-1.02 [facility] Comment on above: Performed By: #### C BC #### [facility] [address] [address] [address] Ashlie Hills EGFR-AF SAUDI ARABIAN >60 Normal >=60 [facility] Comment on above: Performed By: #### C BC #### [facility] [address] [address] [address] Ashlie Hills EGFR-NON AF SAUDI ARABIAN >60 Normal >=60 [facility] Comment on above: Performed By: #### C BC #### [facility] [address] [address] [address] Ashlie Hills Globulin (S) [Mass/Vol] 4.8 g/dL Normal [facility] Comment on above: Performed By: #### C BC #### [facility] [address] [address] [address] Ashlie Hills Glucose [Mass/Vol] 162 mg/dL Critically high 74-106 [facility] Comment on above: Performed By: #### C BC #### [facility] [address] [address] [address] Ashlie Hills Potassium [Moles/Vol] 3.8 mmol/L Normal 3.5-5.1 [facility] Comment on above: Performed By: #### C BC #### [facility] [address] [address] [address] Ashlie Hills Protein [Mass/Vol] 7.8 g/dL Normal 6.4-8.2 [facility] Comment on above: Performed By: #### C BC #### [facility] [address] [place] [address] Dr. Ashlie Hills Sodium [Moles/Vol] 144 mmol/L Normal 136-145 [facility] Comment on above: Performed By: #### C BC #### [facility] [address] [place] [address] Dr. Ashlie Hills Urea nitrogen [Mass/Vol] 24.0 mg/dL Critically high 7.0-18.0 [facility] Comment on above: Performed By: #### C BC #### [facility] [address] [place] [address] Dr. Ashlie Hills Urea nitrogen/Creatinine [Mass ratio] 31.2 mg/mg Normal [facility] Comment on above: Performed By: #### C BC #### [facility] [address] [place] [address] Dr. Ashlie Hills CBC AUTO DIFFon 10-05-2022 BASO # 0.1 103/ul Normal 0.0-0.1 [facility] Comment on above: Performed By: #### C BC #### [facility] [address] [place] [address] Dr. Ashlie Hills Basophils/100 WBC (Bld) 0.6 % Normal 0.2-2.0 [facility] Comment on above: Performed By: #### C BC #### [facility] [address] [place] [address] Dr. Ashlie Hills EO # 0.3 103/ul Normal 0.0-0.7 [facility] Comment on above: Performed By: #### C BC #### [facility] [address] [place] [address] Dr. Ashlie Hills Eosinophils/100 WBC (Bld) 2.1 % Normal 0.9-7.0 [facility] Comment on above: Performed By: #### C BC #### [facility] [address] [place] [address] Dr. Ashlie Hills Erythrocyte distribution width (RBC) [Ratio] 15.9 % Critically high 11.0-15.0 [facility] Comment on above: Performed By: #### C BC #### [facility] [address] [place] [address] Dr. Ashlie Hills Hematocrit (Bld) [Volume fraction] 51.8 % Critically high 36.0-48.0 [facility] Comment on above: Performed By: #### C BC #### [facility] [address] [place] [address] Dr. Ashlie Hills Hemoglobin (Bld) [Mass/Vol] 16.6 g/dL Critically high 12.0-16.0 [facility] Comment on above: Performed By: #### C BC #### [facility] [address] [place] [address] Dr. Ashlie Hills IG # 0.03 10e3/ul Normal 0.00-0.03 [facility] Comment on above: Performed By: #### C BC #### [facility] [address] [place] [address] Dr. Ashlie Hills IG % 0.2 % Normal 0.0-0.5 [facility] Comment on above: Performed By: #### C BC #### [facility] [address] [place] [address] Dr. Ashlie Hills LYMPH # 3.9 103/ul Critically high 1.2-3.8 [facility] Comment on above: Performed By: #### C BC #### [facility] [address] [place] [address] Dr. Ashlie Hills Lymphocytes/100 WBC (Bld) 31.7 % Normal 20.5-60.0 [facility] Comment on above: Performed By: #### C BC #### [facility] [address] [place] [address] Dr. Ashlie Hills MANUAL DIFF REQ NO Normal [facility] Comment on above: Performed By: #### C BC #### [facility] [address] [place] [address] Dr. Ashlie Hills MCH (RBC) [Entitic mass] 27.9 pg Normal 26.7-34.0 [facility] Comment on above: Performed By: #### C BC #### [facility] [address] [place] [address] Dr. Ashlie Hills MCHC (RBC) [Mass/Vol] 32.0 g/dL Normal 29.9-35.2 [facility] Comment on above: Performed By: #### C BC #### [facility] [address] [place] [address] Dr. Ashlie Hills MCV (RBC) [Entitic vol] 87.1 fL Normal 81.0-99.0 [facility] Comment on above: Performed By: #### C BC #### [facility] [address] [place] [address] Dr. Ashlie Hills MONO # 0.7 103/ul Normal 0.3-0.8 [facility] Comment on above: Performed By: #### C BC #### [facility] [address] [place] [address] Dr. Ashlie Hills Monocytes/100 WBC (Bld) 5.8 % Normal 1.7-12.0 [facility] Comment on above: Performed By: #### C BC #### [facility] [address] [place] [address] Dr. Ashlie Hills NEUT # 7.3 103/ul Critically high 1.4-6.5 [facility] Comment on above: Performed By: #### C BC #### [facility] [address] [place] [address] Dr. Ahslie Hills Neutrophils/100 WBC (Bld) 59.6 % Normal 43.0-75.0 [facility] Comment on above: Performed By: #### C BC #### [facility] [address] [place] [address] Dr. Ashlie Hills Platelet mean volume (Bld) [Entitic vol] 11.7 fL Normal 9.5-13.5 [facility] Comment on above: Performed By: #### C BC #### [facility] [address] [place] [address] Dr. Ashlie Hills PLT 117 103/ul Critically low 150-450 [facility] Comment on above: Performed By: #### C BC #### [facility] [address] [place] [address] Dr. Ashlie Hills RBC 5.95 106/ul Critically high 4.20-5.40 [facility] Comment on above: Performed By: #### C BC #### [facility] [address] [place] [address] Dr. Ashlie Hills WBC 12.3 103/ul Critically high 4.0-11.0 [facility] Comment on above: Performed By: #### C BC #### [facility] [address] [place] [address] ABD/PELV W CONon [...] Date: 2022-10-05 13:13 Normal [facility] ER URINE PROFILEon 3 Bilirubin Ql (U) Negative Normal NEGATIVE [facility] Comment on above: Performed By: #### P OCGLUC #### [facility] [address] [address] [address] Ashlie Hills Clarity (U) CLEAR Normal CLEAR [facility] Comment on above: Performed By: #### P OCGLUC #### [facility] [address] [place] [address] Dr. Ashlie Hills Color (U) YELLOW Normal YELLOW [facility] Comment on above: Performed By: #### P OCGLUC #### [facility] [address] [address] [address] Ashlie Hills ERUESD A micrscopic examination will be performed if indicated. Normal [facility] Comment on above: Performed By: #### P OCGLUC #### [facility] [address] [address] [address] Ashlie Hills Glucose Ql (U) Negative Normal NEGATIVE [facility] Comment on above: Performed By: #### P OCGLUC #### [facility] [address] [address] [address] Ashlie Hills Hemoglobin Ql (U) Negative Normal NEGATIVE [facility] Comment on above: Performed By: #### P OCGLUC #### [facility] [address] [address] [address] Ashlie Hills Ketones Ql (U) Negative Normal NEGATIVE [facility] Comment on above: Performed By: #### P OCGLUC #### [facility] [address] [address] [address] Ashlie Hills LEUKOCYTES Negative Normal NEGATIVE [facility] Comment on above: Performed By: #### P OCGLUC #### [facility] [address] [place] [address] Dr. Ashlie Hills Nitrite Ql (U) Negative Normal NEGATIVE [facility] Comment on above: Performed By: #### P OCGLUC #### [facility] [address] [place] [address] Dr. Ashlie Hills pH (U) 6.0 [pH] Normal 5-9 [facility] Comment on above: Performed By: #### P OCGLUC #### [facility] [address] [place] [address] Dr. Ashlie Hills Protein (U) [Mass/Vol] 100 mg/dL Abnormal NEGATIVE/ TRACE [facility] Comment on above: Performed By: #### P OCGLUC #### [facility] [address] [place] [address] Dr. Ashlie Hills SPEC GRAVITY 1.010 Normal 1.005-<=1.025 [facility] Comment on above: Performed By: #### P OCGLUC #### [facility] [address] [place] [address] Dr. Ashlie Hills UR MICRO IND INDICATED Normal [facility] Comment on above: Performed By: #### P OCGLUC #### [facility] [address] [place] [address] Dr. Ashlie Hills Urobilinogen Qn (U) 1.0 {Little'U}/dL Normal 0.2 - 1. 0 [facility] Comment on above: Performed By: #### P OCGLUC #### [facility] [address] [place] [address] Dr. Ashlie Hills LIPASEon 10-05-2022 Lipase [Catalytic activity/Vol] 1771.0 U/L Critically high 73.0-393.0 [facility] Comment on above: Performed By: #### C BC #### [facility] [address] [place] [address] Dr. Ashlie Hills PREG HCG QUALon 10-05-2022 , QUAL Negative Normal NEGATIVE [facility] Comment on above: Performed By: #### P OCGLUC #### [facility] [address] [address] [address] Ashlie Hills PROF 14(COMP METB)on 023 Albumin [Mass/Vol] 3.2 g/dL Critically low 3.4-5.0 [facility] Comment on above: Performed By: #### C BC #### [facility] [address] [place] [address] Dr. Ashlie Hills Albumin/Globulin [Mass ratio] 0.7 {ratio} Normal [facility] Comment on above: Performed By: #### C BC #### [facility] [address] [place] [address] Dr. Ashlie Hills ALP [Catalytic activity/Vol] 70 U/L Normal 46-116 [facility] Comment on above: Performed By: #### C BC #### [facility] [address] [place] [address] Dr. Ashlie Hills ALT [Catalytic activity/Vol] 11 U/L Critically low 14-59 [facility] Comment on above: Performed By: #### C BC #### [facility] [address] [place] [address] Dr. Ashlie Hills Anion gap [Moles/Vol] 10.3 mmol/L Normal [facility] Comment on above: Performed By: #### C BC #### [facility] [address] [place] [address] Dr. Ashlie Hills AST [Catalytic activity/Vol] 11 U/L Critically low 15-37 [facility] Comment on above: Performed By: #### C BC #### [facility] [address] [place] [address] Dr. Ashlie Hills Bilirubin [Mass/Vol] 0.9 mg/dL Normal 0.2-1.0 [facility] Comment on above: Performed By: #### C BC #### [facility] [address] [place] [address] Dr. Ashlie Hills Calcium [Mass/Vol] 9.3 mg/dL Normal 8.5-10.1 [facility] Comment on above: Performed By: #### C BC #### [facility] [address] [place] [address] Dr. Ashlie Hills Chloride [Moles/Vol] 105 mmol/L Normal 98-107 [facility] Comment on above: Performed By: #### C BC #### [facility] [address] [place] [address] Dr. Ashlie Hills CO2 [Moles/Vol] 30.6 mmol/L Normal 21.0-32.0 [facility] Comment on above: Performed By: #### C BC #### [facility] [address] [place] [address] Dr. Ashlie Hills Creatinine [Mass/Vol] 0.62 mg/dL Normal 0.55-1.02 [facility] Comment on above: Performed By: #### C BC #### [facility] [address] [place] [address] Dr. Ashlie Hills EGFR-AF SAUDI ARABIAN >60 Normal >=60 [facility] Comment on above: Performed By: #### C BC #### [facility] [address] [place] [address] Dr. Ashlie Hills EGFR-NON AF SAUDI ARABIAN >60 Normal >=60 [facility] Comment on above: Performed By: #### C BC #### [facility] [address] [place] [address] Dr. Ashlie Hills Globulin (S) [Mass/Vol] 4.6 g/dL Normal [facility] Comment on above: Performed By: #### C BC #### [facility] [address] [place] [address] Dr. Ashlie Hills Glucose [Mass/Vol] 85 mg/dL Normal 74-106 [facility] Comment on above: Performed By: #### C BC #### [facility] Laboratory [address] [place] [address] Dr. Ashlie Hills Potassium [Moles/Vol] 3.9 mmol/L Normal 3.5-5.1 [facility] Comment on above: Performed By: #### C BC #### [facility] [address] [place] [address] Dr. Ashlie Hills Protein [Mass/Vol] 7.8 g/dL Normal 6.4-8.2 [facility] Comment on above: Performed By: #### C BC #### [facility] [address] [place] [address] Dr. Ashlie Hills Sodium [Moles/Vol] 142 mmol/L Normal 136-145 [facility] Comment on above: Performed By: #### C BC #### [facility] [address] [place] [address] Dr. Ashlie Hills Urea nitrogen [Mass/Vol] 12.0 mg/dL Normal 7.0-18.0 [facility] Comment on above: Performed By: #### C BC #### [facility] [address] [place] [address] Dr. Ashlie Hills Urea nitrogen/Creatinine [Mass ratio] 19.4 mg/mg Normal [facility] Comment on above: Performed By: #### C BC #### [facility] [address] [place] [address] Dr. Ashlie Hills URINE MICROSCOPIC ONLYon BACTERIA TRACE Abnormal NONE SEEN [facility] Comment on above: Performed By: #### P OCGLUC #### [facility] [address] [place] [address] Dr. Ashlie Hills Bacteria identified Cx Nom (U) NOT INDICATED Normal [facility] Comment on above: Performed By: #### P OCGLUC #### [facility] [address] [place] [address] Dr. Ashlie Hills CAST NONE SEEN Normal NONE SEEN [facility] Comment on above: Performed By: #### P OCGLUC #### [facility] [address] [place] [address] Dr. Ashlie Hills Crystals LM Nom (Urine sed) NONE SEEN Normal NONE SEEN [facility] Comment on above: Performed By: #### P OCGLUC #### [facility] [address] [place] [address] Dr. Ashlie Hills Epithelial cells LM Ql (Urine sed) MODERATE Abnormal NONE SEEN /RARE [facility] Comment on above: Performed By: #### P OCGLUC #### [facility] [address] [place] [address] Dr. Ashlie Hills MUCOUS NONE SEEN Normal NONE SEEN [facility] Comment on above: Performed By: #### P OCGLUC #### [facility] [address] [place] [address] Dr. Ashlie Hills RBC 0-2 Normal 0-2 [facility] Comment on above: Performed By: #### P OCGLUC #### [facility] [address] [place] [address] Dr. Ashlie Hills WBC 0-2 Abnormal NONE SEEN [facility] Comment on above: Performed By: #### P OCGLUC #### [facility] [address] [place] [address] Dr. Ashlie Hills Covid-19 PCR ([facility])on 09-06 SARS-CoV-2 (COVID-19) RNA MADDY+probe Ql (Unsp spec) Detected Abnormal NOT DETECTED [facility] Comment on above: Result Comment: This test is not yet approved or cleared by the [place] FDA. When there are no FDA-approved or cleared tests available, and other criteria are met, FDA can make tests available under an emergency access mechanism called an Emergency Use Authorization (EUA). The EUA for this test is supported by the Bank Officer of Health and Human Service's declaration that [...] By: #### C VDAGS #### [facility] [address] [place] [address] Dr. Ashlie Hills INFLUENZA A AND B AGon 09-21 INFLUANEGH SEE BELOW Normal [facility] Comment on above: Result Comment: Nega tive for Flu A protein angiten. Infection due to Flu A cannot be ruled out. Flu A angiten in the sample may be below the detection limit of the test. Performed By: #### I NFLUAB #### [facility] [address] [place] [address] Dr. Ashlie Hills [facility] Normal [facility] Comment on above: Result Comment: Nega tive for Flu B protein antigen. Infection due to Flu B cannot be ruled out. Flu B antigen in the sample may be below the detection limit of the test. Performed By: #### I NFLUAB #### [facility] [address] [place] [address] Dr. Ashlie Hills INFLUENZA A AG Negative Normal NEGATIVE SEE COMMENT [facility] Comment on above: Performed By: #### I NFLUAB #### [facility] [address] [place] [address] Dr. Ashlie Hills INFLUENZA B AG Negative Normal NEGATIVE SEE COMMENT [facility] Comment on above: Performed By: #### I NFLUAB #### [facility] [address] [place] [address] ABD/PELV W CONon [...] to at least 10/21/2018, unchanged. https://www.ncbi.nlm .nih.gov/pmc/article s/[id number]/ Electronically authenticated by: COLLIN HUERTAS Date: 2022-07-27 14:56 Normal [facility] CREATININEon 07-18-2022 Creatinine [Mass/Vol] 0.81 mg/dL Normal 0.55-1.02 [facility] Comment on above: Performed By: #### C BC #### [facility] [address] [place], [place] [address] Dr. Ashlie Hills EGFR-AF SAUDI ARABIAN >60 Normal >=60 [facility] Comment on above: Performed By: #### C BC #### [facility] [address] [place], [place] [address] Dr. Ashlie Hills EGFR-NON AF SAUDI ARABIAN >60 Normal >=60 [facility] Comment on above: Performed By: #### C BC #### [facility] [address] [place], [place] [address] LOW EXT W [...] Date: 2022-07-18 14:58 Normal [facility] XR KNEE LT 1_2 Von 3 [...] Date: 2022-07-18 12:00 Normal [facility]on 06-09 SARS-CoV-2 (COVID-19) RNA MADDY+probe Ql (Unsp spec) Not detected Normal NOT DETECTED [facility] Comment on above: Result Comment: This test is not yet approved or cleared by the [place] FDA. When there are no FDA-approved or cleared tests available, and other criteria are met, FDA can make tests available under an emergency access mechanism called an Emergency Use Authorization (EUA). The EUA for this test is supported by the Abernathy of Health and Human Service's (HHS's) declaration [...] By: #### C BC #### [facility] [address] [place] [address] Dr. Ashlie Hills INFLUENZA A AND B [facility] 07-06 [facility] SEE BELOW Normal [facility] Comment on above: Result Comment: Nega tive for Flu A protein angiten. Infection due to Flu A cannot be ruled out. Flu A angiten in the sample may be below the detection limit of the test. Performed By: #### C BC #### [facility] [address] [place] [address] [address] [address] Ashlie Hills [facility] SEE BELOW Normal [facility] Comment on above: Result Comment: Nega tive for Flu B protein antigen. Infection due to Flu B cannot be ruled out. Flu B antigen in the sample may be below the detection limit of the test. Performed By: #### C BC #### [facility] [address] [place] [address] Dr. Ashlie Hills INFLUENZA A AG Negative Normal NEGATIVE SEE COMMENT [facility] Comment on above: Performed By: #### C BC #### [facility] [address] [place] [address] Dr. Ashlie Hills INFLUENZA B AG Negative Normal NEGATIVE SEE COMMENT [facility] Comment on above: Performed By: #### C BC #### [facility] [address] [place] [address] Dr. Ashlie Hills POINT OF CARE GLUCOSEon 10- Glucose [Mass/Vol] 108 mg/dL Critically high 74-106 [facility] Comment on above: Performed By: #### C BC #### [facility] [address] [place] [address] Dr. Ashlie Hills RAGHU by IFAon 03-07-2022 Antinuclear Antibodies, IFA Negative Normal [facility] Comment on above: Result Comment: Nega tive <1:80 Borderline 1:80 Positive >1:80 ICAP nomenclature: AC-0 For more information about Hep-2 cell patterns use ANApatterns.org, the official website for the International Consensus on Antinuclear Antibody (RAGHU) Patterns (ICAP). Performed By: #### A NAIFA #### [facility] [address] [place] [address] Dr. Ashlie Hills IMMUNOFIXATION (TREVON), URINEo n 03-07-2022 TREVON Interpretation:U Comment Normal [facility] Comment on above: Result Comment: No m onoclonality detected. Performed By: #### C BC #### [facility] [address] [place] [address] Dr. Ashlie Hills IMMUNOFIXATION(TREVON),PROTEIN ELEC(PE),FREon 03-07-2022 Albumin [Mass/Vol] 3.0 g/dL Normal 2.9-4.4 [facility] Comment on above: Performed By: #### I NFLUAB #### [facility] [address] [place] [address] Dr. Ashlie Hills Albumin/Globulin [Mass ratio] 0.8 {ratio} Normal 0.7-1.7 [facility] Comment on above: Performed By: #### I NFLUAB #### [facility] [address] [place] [address] [address] Ashlie Hills Lkhse-9-Rdtxcejx 0.3 g/dL Normal 0.0-0.4 [facility] Comment on above: Performed By: #### I NFLUAB #### [facility] [address] [place] [address] [address] Ashlie Hills Qkfpv-2-Teevyrow 1.0 g/dL Normal 0.4-1.0 [facility] Comment on above: Performed By: #### I NFLUAB #### [facility] [address] [place] [address] Dr. Ashlie Hills Beta Globulin 1.8 g/dL Critically high 0.7-1.3 [facility] Comment on above: Performed By: #### I NFLUAB #### [facility] [address] [place] [address] Dr. Ashlie Hills Free Morgan Lt Chains,S 45.2 mg/L Critically high 3.3-19.4 [facility] Comment on above: Performed By: #### I NFLUAB #### [facility] [address] [place] [address] Dr. Ashlie Hills Free Lambda Lt Chains,S 40.3 mg/L Critically high 5.7-26.3 [facility] Comment on above: Performed By: #### I NFLUAB #### [facility] [address] [place] [address] Dr. Ashlie Hills Gamma Globulin 0.8 g/dL Normal 0.4-1.8 [facility] Comment on above: Performed By: #### I NFLUAB #### [facility] [address] [place] [address] Dr. Ashlie Hills Globulin (S) [Mass/Vol] 3.9 g/dL Normal 2.2-3.9 [facility] Comment on above: Performed By: #### I NFLUAB #### [facility] [address] [place] [address] [address] Ashlie Hills Immunofixation Result, Serum Comment Normal [facility] Comment on above: Result Comment: No m onoclonality detected. Performed By: #### I NFLUAB #### [facility] [address] [place] [address] [address] Ashlie Hills Immunoglobulin A, Qn, Serum 776 mg/dL Critically high 87-352 [facility] Comment on above: Performed By: #### I NFLUAB #### [facility] [address] [place] [address] [address] Ashlie Hills Immunoglobulin G, Qn, Serum 955 mg/dL Normal 586-1602 [facility] Comment on above: Performed By: #### I NFLUAB #### [facility] [address] [place] [address] Dr. Ashlie Hills Immunoglobulin M, Qn, Serum 39 mg/dL Normal 26-217 [facility] Comment on above: Performed By: #### I NFLUAB #### [facility] [address] [place] [address] [address] Ashlie Hills Morgan/Lambda Ratio, S 1.12 Normal 0.26-1.65 [facility] Comment on above: Performed By: #### I NFLUAB #### [facility] [address] [place] [address] [address] Ashlie Hills M-Bright Not Observed Normal Not Observed [facility] Comment on above: Performed By: #### I NFLUAB #### [facility] [address] [place] [address] [address] Ashlie Hills PDF . Normal [facility] Comment on above: Performed By: #### I NFLUAB #### [facility] [address] [place] [address] Dr. Ashlie Hills Please note: Comment Normal [facility] Comment on above: Result Comment: Prot ein electrophoresis scan will follow via computer, mail, or rehabilitation psychologist delivery. Performed By: #### I NFLUAB #### [facility] [address] [place] [address] [address] Ashlie Hills Protein [Mass/Vol] 6.9 g/dL Normal 6.0-8.5 [facility] Comment on above: Performed By: #### I NFLUAB #### [facility] [address] [place] [address] Dr. Ashlie Hills C-PEPTIDE, SERUMon C-Peptide, Serum 3.1 ng/mL Normal 1.1-4.4 [facility] Comment on above: Result Comment: C-Pe ptide reference interval is for fasting patients. Performed By: #### C PEPT #### [facility] [address] [place] [address] [address] Ashlie Hills HEP B SURFACE ANTIGEN SCREEN on 03-04-2022 HBsAg Screen Negative Normal Negative [facility] Comment on above: Performed By: #### C BC #### [facility] [address] [place] [address] Dr. Ashlie Hills HEPATITIS C VIRUS AB W/ REFL EX QUANTon 03-04-2022 HCV AB <0.1 Normal 0.0-0.9 [facility] Comment on above: Performed By: #### I NFLUAB #### [facility] [address] [address] [address] Ashlie Hills Interpretation: Comment Normal [facility] Comment on above: Result Comment: Nega tive Not infected with HCV, unless recent infection is suspected or other evidence exists to indicate HCV infection. Performed By: #### I NFLUAB #### [facility] [address] [place] [address] [address] Ashlie Hills MICROALBUMIN/ CREATININE RAT IOon 03-04-2022 Albumin, Urine 367.4 ug/mL Normal Not Estab. [facility] Comment on above: Performed By: #### C BC #### [facility] [address] [place] [address] Dr. Ashlie Hills Albumin/ Creatinine Ratio 239 mg/g creat Critically high 0-29 [facility] Comment on above: Result Comment: Norm al: 0 - 29 Moderately increased: 30 - 300 Severely increased: >300 Performed By: #### C BC #### [facility] [address] [place] [address] [address] Ashlie Hills Creatinine, Urine 153.9 mg/dL Normal Not Estab. [facility] Comment on above: Performed By: #### C BC #### [facility] [address] [place] [address] [address] Ashlie Hills VIT D 25-OH LABCORPon 2021 Vitamin D, 25-Hydroxy <4.0 Critically low 30.0-100.0 [facility] Comment on above: Result Comment: Graciela min D deficiency has been defined by the [place] of [employer] and an Endocrine Society practice guideline as a level of serum 25-OH vitamin D less than 20 ng/mL (1,2). The Endocrine Society went on to further define vitamin D insufficiency as a level between 21 and 29 ng/mL (2). 1. IOM ([place] of [employer]). 2010. Dietary reference intakes for calcium and D. [place]: The National Academies Press. 2. Lynda MF, Keely OLIVEROS, Leandra LOPEZ, et al. Evaluation, treatment, and prevention of vitamin D deficiency: an Endocrine Society clinical practice guideline. JCEM. 2010; 96(7):1911-30. Performed By: #### C BC #### [facility] [address] [place] [address] [address] Ashlie Hills GLYCOHEMOGLOBIN A1Con 2021 ADA RECOMMENDATION SEE BELOW Normal [facility] Comment on above: Result Comment: ADA RECOMMENDED LIMIT 4.0 - 6.0 ADA THERAPEUTIC TARGET < 7.0 ACTION SUGGESTED > 7.0 Performed By: #### C VDAGS #### [facility] [address] [place] [address] [address] Ashlie Hills Glucose [Mass/Vol] 295 mg/dL Normal [facility] Comment on above: Performed By: #### C VDAGS #### [facility] [address] [place] [address] [address] Ashlie Hills HbA1c (Bld) [Mass fraction] 11.9 % Critically high 4.5-6.2 [facility] Comment on above: Performed By: #### C VDAGS #### [facility] [address] [place] [address] Dr. Ashlie Hills HEMOGRAM AND PLATELon 2021 Hematocrit (Bld) [Volume fraction] 56.3 % Critically high 36.0-48.0 [facility] Comment on above: Performed By: #### C VDAGS #### [facility] [address] [place] [address] Dr. Ashlie Hills Hemoglobin (Bld) [Mass/Vol] 18.0 g/dL Critically high 12.0-16.0 [facility] Comment on above: Performed By: #### C VDAGS #### [facility] [address] [place] [address] Dr. Ashlie Hills MCH (RBC) [Entitic mass] 29.5 pg Normal 26.7-34.0 [facility] Comment on above: Performed By: #### C VDAGS #### [facility] [address] [place] [address] Dr. Ashlie Hills MCHC (RBC) [Mass/Vol] 32.0 g/dL Normal 29.9-35.2 [facility] Comment on above: Performed By: #### C VDAGS #### [facility] [address] [place] [address] Dr. Ashlie Hills MCV (RBC) [Entitic vol] 92.1 fL Normal 81.0-99.0 [facility] Comment on above: Performed By: #### C VDAGS #### [facility] [address] [place] [address] Dr. Ashlie Hills PLT 123 103/ul Critically low 150-450 [facility] Comment on above: Performed By: #### C VDAGS #### [facility] [address] [place] [address] Dr. Ashlie Hills RBC 6.11 106/ul Critically high 4.20-5.40 [facility] Comment on above: Performed By: #### C VDAGS #### [facility] [address] [place] [address] Dr. Ashlie Hills WBC 16.4 103/ul Critically high 4.0-11.0 [facility] Comment on above: Performed By: #### C VDAGS #### [facility] [address] [id number] Ashlie Hills LIPID PROFILEon 03-03-2022 CHOL-HDL RATIO NORM SEE BELOW Normal [facility] Comment on above: Result Comment: 3.3 - 4.4 LOW RISK 4.4 - 7.1 AVERAGE RISK 7.1 - 11.0 MODERATE RISK >11.0 HIGH RISK Performed By: #### C VDAGS #### [facility] [address] [place] [address] [address] Ashlie Hills Cholesterol [Mass/Vol] 159 mg/dL Normal <=200 [facility] Comment on above: Performed By: #### C VDAGS #### [facility] [address] [place] [address] [address] Ashlie Hills Cholesterol in HDL [Mass/Vol] 40 mg/dL Normal 40-60 [facility] Comment on above: Performed By: #### C VDAGS #### [facility] [address] [place] [address] [address] Ashlie Hills Cholesterol in LDL [Mass/Vol] 81.8 mg/dL Normal [facility] Comment on above: Performed By: #### C VDAGS #### [facility] [address] [place], [place] [address] Dr. Ashlie Hills Cholesterol.total/Ch olesterol in HDL [Mass ratio] 4.0 {ratio} Normal [facility] Comment on above: Performed By: #### C VDAGS #### [facility] [address] [place], [place] [address] Dr. Ashlie Hills HDL NORMAL > or = 60 mg/dl - LOW CARDIOVASCULAR RISK <40 mg/dl - HIGH CARDIOVASCULAR RISK Normal [facility] Comment on above: Performed By: #### C VDAGS #### [facility] [address] [place] [address] [address] Ashlie Hills LDL CALC NORMAL SEE BELOW Normal [facility] Comment on above: Result Comment: <100 mg/dl OPTIMAL 100 - 129 mg/dl NEAR OR ABOVE OPTIMAL 130 - 159 mg/dl BORDERLINE HIGH 160 - 189 mg/dl HIGH >190 mg/dl VERY HIGH Performed By: #### C VDAGS #### [facility] [address] [place] [address] Dr. Ashlie Hills Triglyceride [Mass/Vol] 186 mg/dL Critically high <=150 [facility] Comment on above: Performed By: #### C VDAGS #### [facility] [address] [place] [address] Dr. Ashlie Hills VLDL CALC 37.2 mg/dL Normal [facility] Comment on above: Performed By: #### C VDAGS #### [facility] [address] [place] [address] Dr. Ashlie Hills RENAL FUNCTION PANELon 03-03 Albumin [Mass/Vol] 3.1 g/dL Critically low 3.4-5.0 [facility] Comment on above: Performed By: #### C BC #### [facility] [address] [place] [address] Dr. Ashlie Hills Calcium [Mass/Vol] 9.2 mg/dL Normal 8.5-10.1 [facility] Comment on above: Performed By: #### C BC #### [facility] [address] [place] [address] Dr. Ashlie Hills Chloride [Moles/Vol] 102 mmol/L Normal 98-107 [facility] Comment on above: Performed By: #### C BC #### [facility] [address] [place] [address] Dr. Ashlie Hills CO2 [Moles/Vol] 31.9 mmol/L Normal 21.0-32.0 [facility] Comment on above: Performed By: #### C BC #### [facility] [address] [place] [address] Dr. Ashlie Hills Creatinine [Mass/Vol] 0.68 mg/dL Normal 0.55-1.02 [facility] Comment on above: Performed By: #### C BC #### [facility] [address] [place] [address] Dr. Ashlie Hills EGFR-AF SAUDI ARABIAN >60 Normal >=60 [facility] Comment on above: Performed By: #### C BC #### [facility] [address] [place] [address] [address] Ashlie Hills EGFR-NON AF SAUDI ARABIAN >60 Normal >=60 [facility] Comment on above: Performed By: #### C BC #### [facility] [address] [place] [address] [address] Ashlie Hills Glucose [Mass/Vol] 131 mg/dL Critically high 74-106 [facility] Comment on above: Performed By: #### C BC #### [facility] [address] [place] [address] [address] Ashlie Hills Phosphate [Mass/Vol] 4.0 mg/dL Normal 2.6-4.7 [facility] Comment on above: Performed By: #### C BC #### [facility] [address] [place] [address] Dr. Ashlie Hills Potassium [Moles/Vol] 4.0 mmol/L Normal 3.5-5.1 [facility] Comment on above: Performed By: #### C BC #### [facility] [address] [place] [address] [address] Ashlie Hills Sodium [Moles/Vol] 141 mmol/L Normal 136-145 [facility] Comment on above: Performed By: #### C BC #### [facility] [address] [place] [address] [address] Ashlie Hills Urea nitrogen [Mass/Vol] 17.0 mg/dL Normal 7.0-18.0 [facility] Comment on above: Performed By: #### C BC #### [facility] [address] [place] [address] Dr. Ashlie Hills UA RANDOM W/MICROSCOPICon BACTERIA NONE SEEN Normal NONE SEEN [facility] Comment on above: Performed By: #### I NFLUAB #### [facility] [address] [address] [address] Ashlie Hills Bilirubin Ql (U) Negative Normal NEGATIVE [facility] Comment on above: Performed By: #### I NFLUAB #### [facility] [address] [place] [address] Dr. Ashlie Hills CAST NONE SEEN Normal NONE SEEN [facility] Comment on above: Performed By: #### I NFLUAB #### [facility] [address] [place] [address] Dr. Ashlie Hills Clarity (U) CLEAR Normal CLEAR [facility] Comment on above: Performed By: #### I NFLUAB #### [facility] [address] [place] [address] Dr. Ashlie Hills Color (U) YELLOW Normal YELLOW [facility] Comment on above: Performed By: #### I NFLUAB #### [facility] [address] [place] [address] Dr. Ashlie Hills Crystals LM Nom (Urine sed) NONE SEEN Normal NONE SEEN [facility] Comment on above: Performed By: #### I NFLUAB #### [facility] [address] [place] [address] Dr. Ashlie Hills Epithelial cells LM Ql (Urine sed) FEW Abnormal NONE SEEN /RARE [facility] Comment on above: Performed By: #### I NFLUAB #### [facility] [address] [place] [address] Dr. Ashlie Hills Glucose Ql (U) Negative Normal NEGATIVE [facility] Comment on above: Performed By: #### I NFLUAB #### [facility] [address] [place] [address] Dr. Ashlie Hills Hemoglobin Ql (U) Negative Normal NEGATIVE [facility] Comment on above: Performed By: #### I NFLUAB #### [facility] [address] [place] [address] Dr. Ashlie Hills Ketones Ql (U) Negative Normal NEGATIVE [facility] Comment on above: Performed By: #### I NFLUAB #### [facility] [address] [place] [address] Dr. Ashlie Hills LEUKOCYTES Negative Normal NEGATIVE [facility] Comment on above: Performed By: #### I NFLUAB #### [facility] [address] [place] [address] Dr. Ashlie Hills MUCOUS NONE SEEN Normal NONE SEEN [facility] Comment on above: Performed By: #### I NFLUAB #### [facility] [address] [address] [address] Ashlie Hills Nitrite Ql (U) Negative Normal NEGATIVE [facility] Comment on above: Performed By: #### I NFLUAB #### [facility] [address] [place] [address] Dr. Ashlie Hills pH (U) 5.5 [pH] Normal 5-9 [facility] Comment on above: Performed By: #### I NFLUAB #### [facility] [address] [place] [address] Dr. Ashlie Hills RBC 0-2 Normal 0-2 [facility] Comment on above: Performed By: #### I NFLUAB #### [facility] [address] [place] [address] Dr. Ashlie Hills SPEC GRAVITY >=1.030 Abnormal 1.005-<=1.025 [facility] Comment on above: Performed By: #### I NFLUAB #### [facility] [address] [place] [address] Dr. Ashlie Hills UA PROTEIN 100 mg/dl Abnormal NEGATIVE/ TRACE [facility] Comment on above: Performed By: #### I NFLUAB #### [facility] [address] [place] [address] Dr. Ashlie Hills Urobilinogen Qn (U) 0.2 {Little'U}/dL Normal 0.2 - 1. 0 [facility] Comment on above: Performed By: #### I NFLUAB #### [facility] [address] [place] [address] Dr. Ashlie Hills WBC NONE SEEN Normal NONE SEEN [facility] Comment on above: Performed By: #### I NFLUAB #### [facility] [address] [place] [address] Dr. Ashlie Hills URIC ACID SERUMon 03-03-2022 Urate [Mass/Vol] 5.0 mg/dL Normal 2.6-6.0 [facility] Comment on above: Performed By: #### I NFLUAB #### [facility] [address] [place] [address] Dr. Ashlie Hills URINE T PROTEIN CREAT RATIOo n 03-03-2022 Protein (U) [Mass/Vol] 77.9 mg/dL Critically high <=12.0 [facility] Comment on above: Performed By: #### C VDAGS #### [facility] [address] [place] [address] Dr. Ashlie Hills UR PROT CREAT RAT 0.44 Normal [facility] Comment on above: Performed By: #### C VDAGS #### [facility] [address] [place] [address] Dr. Ashlie Hills URINE CREAT 175.15 mg/dL Normal 20.00-300.00 [facility] Comment on above: Performed By: #### C VDAGS #### [facility] [address] [place] [address] Dr. Ashlie Hills CULTURE URINEon 12-25-2021 CULTURE URINE Culture Observations: GREATER THAN TWO ORGANISMS PRESENT, HEAVILY MIXED. PLEASE RESUBMIT CLEAN CATCH MID-STREAM URINE IF CLINICALLY INDICATED. Normal [facility] Comment on above: Performed By: #### I NFLUAB #### [facility] [address] [place] [address] Dr. Ashlie Hills CBC AUTO DIFFon 12-24-2021 BASO # 0.1 103/ul Normal 0.0-0.1 [facility] Comment on above: Performed By: #### C BC #### [facility] [address] [place] [address] Dr. Ashlie Hills Basophils/100 WBC (Bld) 0.5 % Normal 0.2-2.0 [facility] Comment on above: Performed By: #### C BC #### [facility] [address] [place] [address] Dr. Ashlie Hills EO # 0.4 103/ul Normal 0.0-0.7 [facility] Comment on above: Performed By: #### C BC #### [facility] [address] [address] [address] Ashlie Hills Eosinophils/100 WBC (Bld) 2.4 % Normal 0.9-7.0 [facility] Comment on above: Performed By: #### C BC #### [facility] [address] [place] [address] Dr. Ashlie Hills Erythrocyte distribution width (RBC) [Ratio] 14.1 % Normal 11.0-15.0 [facility] Comment on above: Performed By: #### C BC #### [facility] [address] [place] [address] Dr. Ashlie Hills Hematocrit (Bld) [Volume fraction] 55.9 % Critically high 36.0-48.0 [facility] Comment on above: Performed By: #### C BC #### [facility] [address] [place] [address] Dr. Ashlie Hills Hemoglobin (Bld) [Mass/Vol] 17.9 g/dL Critically high 12.0-16.0 [facility] Comment on above: Performed By: #### C BC #### [facility] [address] [place] [address] Dr. Ashlie Hills IG # 0.06 10e3/ul Critically high 0.00-0.03 [facility] Comment on above: Performed By: #### C BC #### [facility] [address] [place] [address] Dr. Ashlie Hills IG % 0.4 % Normal 0.0-0.5 [facility] Comment on above: Performed By: #### C BC #### [facility] [address] [place] [address] Dr. Ashlie Hills LYMPH # 5.8 103/ul Critically high 1.2-3.8 [facility] Comment on above: Performed By: #### C BC #### [facility] [address] [place] [address] Dr. Ashlie Hills Lymphocytes/100 WBC (Bld) 35.4 % Normal 20.5-60.0 [facility] Comment on above: Performed By: #### C BC #### [facility] [address] [place] [address] Dr. Ashlie Hills MANUAL DIFF REQ NO Normal [facility] Comment on above: Performed By: #### C BC #### [facility] [address] [place] [address] Dr. Ashlie Hills MCH (RBC) [Entitic mass] 29.4 pg Normal 26.7-34.0 [facility] Comment on above: Performed By: #### C BC #### [facility] [address] [place] [address] Dr. Ashlie Hills MCHC (RBC) [Mass/Vol] 32.0 g/dL Normal 29.9-35.2 [facility] Comment on above: Performed By: #### C BC #### [facility] [address] [place] [address] Dr. Ashlie Hills MCV (RBC) [Entitic vol] 91.8 fL Normal 81.0-99.0 [facility] Comment on above: Performed By: #### C BC #### [facility] [address] [place] [address] Dr. Ashlie Hills MONO # 0.8 103/ul Normal 0.3-0.8 [facility] Comment on above: Performed By: #### C BC #### [facility] [address] [place] [address] Dr. Ashlie Hills Monocytes/100 WBC (Bld) 4.8 % Normal 1.7-12.0 [facility] Comment on above: Performed By: #### C BC #### [facility] [address] [place] [address] Dr. Ashlie Hills NEUT # 9.3 103/ul Critically high 1.4-6.5 [facility] Comment on above: Performed By: #### C BC #### [facility] [address] [place] [address] Dr. Ashlie Hills Neutrophils/100 WBC (Bld) 56.5 % Normal 43.0-75.0 [facility] Comment on above: Performed By: #### C BC #### [facility] [address] [place] [address] Dr. Ashlie Hills Platelet mean volume (Bld) [Entitic vol] 12.9 fL Normal 9.5-13.5 [facility] Comment on above: Performed By: #### C BC #### [facility] [address] [place] [address] Dr. Ashlie Hills PLT 127 103/ul Critically low 150-450 [facility] Comment on above: Performed By: #### C BC #### [facility] [address] [address] [address] Ashlie Hills RBC 6.09 106/ul Critically high 4.20-5.40 [facility] Comment on above: Performed By: #### C BC #### [facility] [address] [place] [address] Dr. Ashlie Hills WBC 16.4 103/ul Critically high 4.0-11.0 [facility] Comment on above: Performed By: #### C BC #### [facility] [address] [place] [address] ABD/PELVIS WO CONon [...] hip degenerative change. Normal [facility] ER URINE PROFILEon 2 Bilirubin Ql (U) Negative Normal NEGATIVE [facility] Comment on above: Performed By: #### MADELINE DIAZRO #### [facility] [address] [place] [address] Dr. Ashlie Hills Clarity (U) CLEAR Normal CLEAR [facility] Comment on above: Performed By: #### EVONNE DIAZ #### [facility] [address] [address] [address] Ashlie Hills Color (U) DK. ORANGE Abnormal YELLOW [facility] Comment on above: Performed By: #### E EVONNE LYMAN #### [facility] [address] [address] [address] Ashlie HOBBS A micrscopic examination will be performed if indicated. Normal [facility] Comment on above: Performed By: #### PEREZ DIAZICRO #### [facility] [address] [place] [address] Dr. Ashlie Hills Glucose Ql (U) 250 mg/dl Abnormal NEGATIVE [facility] Comment on above: Performed By: #### Tracey LYMAN UMICRO #### [facility] [address] [address] [address] Ashlie Hills Hemoglobin Ql (U) Negative Normal NEGATIVE [facility] Comment on above: Performed By: #### Tracey LYMAN UMICRO #### [facility] [address] [place] [address] Dr. Ashlie Hills Ketones Ql (U) Negative Normal NEGATIVE [facility] Comment on above: Performed By: #### Tracey LYMAN UMICRO #### [facility] [address] [place] [address] Dr. Ashlie Hills LEUKOCYTES Negative Normal NEGATIVE [facility] Comment on above: Performed By: #### Tracey LYMAN UMICRO #### [facility] [address] [place] [address] Dr. Ashlie Hills Nitrite Ql (U) Negative Normal NEGATIVE [facility] Comment on above: Performed By: #### Tracey LYMAN UMICRO #### [facility] [address] [place] [address] Dr. Ashlie Hills pH (U) 5.0 [pH] Normal 5-9 [facility] Comment on above: Performed By: #### Tracey LYMAN UMICRO #### [facility] [address] [place] [address] Dr. Ashlie Hills Protein (U) [Mass/Vol] 100 mg/dL Abnormal NEGATIVE/ TRACE [facility] Comment on above: Performed By: #### Tracey LYMAN UMICRO #### [facility] [address] [place] [address] Dr. Ashlie Hills SPEC GRAVITY >=1.030 Abnormal 1.005-<=1.025 [facility] Comment on above: Performed By: #### EVONNE DIAZ #### [facility] [address] [place] [address] Dr. Ashlie Hills UR MICRO IND INDICATED Normal [facility] Comment on above: Performed By: #### EVONNE DIAZ #### [facility] [address] [place] [address] Dr. Ashlie Hills Urobilinogen Qn (U) 1.0 {Little'U}/dL Normal 0.2 - 1. 0 [facility] Comment on above: Performed By: #### EVONNE DIAZ #### [facility] [address] [place] [address] Dr. Ashlie Hills PROF CHEM 8 (BAS METB)on Anion gap [Moles/Vol] 12.1 mmol/L Normal [facility] Comment on above: Performed By: #### I NFLUAB #### [facility] [address] [place] [address] Dr. Ashlie Hills Calcium [Mass/Vol] 9.0 mg/dL Normal 8.5-10.1 [facility] Comment on above: Performed By: #### I NFLUAB #### [facility] [address] [place] [address] Dr. Ashlie Hills Chloride [Moles/Vol] 101 mmol/L Normal 98-107 [facility] Comment on above: Performed By: #### I NFLUAB #### [facility] [address] [place] [address] Dr. Ashlie Hills CO2 [Moles/Vol] 29.1 mmol/L Normal 21.0-32.0 [facility] Comment on above: Performed By: #### I NFLUAB #### [facility] [address] [place] [address] Dr. Ashlie Hills Creatinine [Mass/Vol] 0.86 mg/dL Normal 0.55-1.02 [facility] Comment on above: Performed By: #### I NFLUAB #### [facility] [address] [place] [address] Dr. Ashlie Hills EGFR-AF SAUDI ARABIAN >60 Normal >=60 [facility] Comment on above: Performed By: #### I NFLUAB #### [facility] [address] [place] [address] Dr. Ashlie Hills EGFR-NON AF SAUDI ARABIAN >60 Normal >=60 [facility] Comment on above: Performed By: #### I NFLUAB #### [facility] [address] [address] [address] Ashlie Hills Glucose [Mass/Vol] 236 mg/dL Critically high 74-106 [facility] Comment on above: Performed By: #### I NFLUAB #### [facility] [address] [place] [address] Dr. Ashlie Hills Potassium [Moles/Vol] 4.2 mmol/L Normal 3.5-5.1 [facility] Comment on above: Performed By: #### I NFLUAB #### [facility] [address] [address] [address] Ashlie Hills Sodium [Moles/Vol] 138 mmol/L Normal 136-145 [facility] Comment on above: Performed By: #### I NFLUAB #### [facility] [address] [place] [address] Dr. Ashlie Hills Urea nitrogen [Mass/Vol] 11.0 mg/dL Normal 7.0-18.0 [facility] Comment on above: Performed By: #### I NFLUAB #### [facility] [address] [place] [address] Dr. Ashlie Hills Urea nitrogen/Creatinine [Mass ratio] 12.8 mg/mg Normal [facility] Comment on above: Performed By: #### I NFLUAB #### [facility] [address] [place] [address] Dr. Ashlie Hills URINE MICROSCOPIC ONLYon BACTERIA SMALL Abnormal NONE SEEN [facility] Comment on above: Performed By: #### E EVONNE LYMAN #### [facility] [address] [place] [address] Dr. Ashlie Hills Bacteria identified Cx Nom (U) INDICATED Normal [facility] Comment on above: Performed By: #### E RUR, UMICRO #### [facility] [address] [place] [address] Dr. Ashlie Hills CAST NONE SEEN Normal NONE SEEN [facility] Comment on above: Performed By: #### E RUR, UMICRO #### [facility] [address] [address] [address] Ashlie Hills Crystals LM Nom (Urine sed) NONE SEEN Normal NONE SEEN [facility] Comment on above: Performed By: #### E RUR, UMICRO #### [facility] [address] [place] [address] Dr. Ashlie Hills Epithelial cells LM Ql (Urine sed) MODERATE Abnormal NONE SEEN /RARE [facility] Comment on above: Performed By: #### E RUR, UMICRO #### [facility] [address] [place] [address] Dr. Ashlie Hills MUCOUS NONE SEEN Normal NONE SEEN [facility] Comment on above: Performed By: #### E RUR, UMICRO #### [facility] [address] [place] [address] Dr. Ashlie Hills RBC 0-2 Normal 0-2 [facility] Comment on above: Performed By: #### E RUR, UMICRO #### [facility] [address] [place] [address] Dr. Ashlie Hills WBC 0-2 Abnormal NONE SEEN [facility] Comment on above: Performed By: #### E RUR, UMICRO #### [facility] [address] [place] [address] Dr. Ashlie Hills YEAST PRESENT Abnormal NONE SEEN [facility] Comment on above: Performed By: #### E RUR, UMICRO #### [facility] [address] [place] [address] Dr. Ashlie Hills HIP RIGHT 1 OR 2 VWS WITH PE LVISon 07-20-2020 HIP RIGHT 1 OR 2 VWS WITH PELVIS [facility] Department of Radiology [address] [id number] Patient Name: MITZI MACIAS : 1970 Sex: F Age: Race: White Pt. Location: Patient Status: O Ordered Date: 07/20/2020 1:45:00 PM Completed Date: 07/20/2020 01:57 PM Requesting Provider: LIZ EISENBERG Attending Provider: LIZ EISENBERG Report Copy To: MCKAYLA BLAS Signs & Symptoms: M25.551 Pain in right hip I10 History: [place] Comments: evaluate Exam: HIP RIGHT 1 OR [...] MRI. Electronically signed: Pipo Acevedo. Transcribed by: [email or web address], User Resident: Electronically Signed by: PIPO ACEVEDO @ 07/20/2020 03:45 PM Normal [facility] Comment on above: Order Comment: evalu ate Vital Signs Date Time Vital Sign Value Performing Clinician Facility 03-08-2022 15:00-0400 Body height 170.18 cm Stephanie Tico Other [facility] Other 03-08-2022 15:00-0400 Body temperature 97.6 [degF] Stephanie Tico Other [facility] Other 03-08-2022 15:00-0400 Diastolic blood pressure 72 mm[Hg] Stephanie Tico Other [facility] Other 03-08-2022 15:00-0400 Respiratory rate 20 /min Stephanie Tico Other [facility] Other 03-08-2022 15:00-0400 SaO2% (BldA) [Mass fraction] 91 % Stephanie Tico Other [facility] Other 03-08-2022 15:00-0400 Systolic blood pressure 131 mm[Hg] Stephanie Tico Other [facility] Other 02-20-2022 09:20-0400 Body height 170.18 cm Stephanie Tico Other [facility] Other 02-20-2022 09:20-0400 Body temperature 96.5 [degF] Stephanie Tico Other [facility] Other 02-20-2022 09:20-0400 Diastolic blood pressure 69 mm[Hg] Stephanie Tico Other [facility] Other 02-20-2022 09:20-0400 Respiratory rate 20 /min Stephanie Tico Other [facility] Other 02-20-2022 09:20-0400 SaO2% (BldA) [Mass fraction] 91 % Stephanie Tico Other [facility] Other 02-20-2022 09:20-0400 Systolic blood pressure 129 mm[Hg] Stephanie Cortés Other [facility] Other 02-06-2022 10:24-0400 Blood Pressure Location Elbert VARGAS [facility] 02-06-2022 10:24-0400 Diastolic blood pressure 76 mm[Hg] Elbert VARGAS [facility] 02-06-2022 10:24-0400 Heart rate 70 /min Elbert VARGAS [facility] 02-06-2022 10:24-0400 Respiratory rate 16 /min Elbert VARGAS [facility] 02-06-2022 10:24-0400 Systolic blood pressure 134 mm[Hg] Elbert VARGAS [facility] Encounters Encounter Date Encounter Type Care Provider Facility Start: 04-22-2024 ambulatory SARAH Wilkerson ty:SHEA Villalobos Start: 01-17-2024 End: 01-17-2024 ambulatory MCKAYLA AICHHOLZ Not Available Start: 11-15-2023 End: 11-15-2023 ambulatory MCKAYLA AICHHOLZ Not Available Start: 11-14-2023 End: 11-14-2023 ambulatory [facility] Start: 11-01-2023 End: 11-01-2023 ambulatory MCKAYLA AICHHOLZ Not Available Start: 09-27-2023 End: 09-27-2023 ambulatory MCKAYLA AICHHOLZ Not Available Start: 08-17-2023 Refill Mckayla Aichholz [employer] Work Phone: [facility] Comment on above: Vaginal yeast infect ion (Primary Dx) Start: 08-14-2023 Refill Mckayla Blas [employer] Work Phone: [facility] Comment on above: Type 2 diabetes asiya itus with unspecified complications ([facility]); Edema, unspecified; Edema Start: 07-10-2023 End: 07-10-2023 [...] encounter procedure SARAH VEGA [facility] Start: 10-05-2022 End: 10-05-2022 ambulatory MARIANO DIAB . Facility:[facility] Start: 09-21-2022 End: 09-21-2022 ambulatory SAYDA BLAS Facility:[facility] Start: 09-14-2022 ambulatory RAFAEL GONGORA Facilit y:[facility] Start: 08-24-2022 End: [address] CHAPARRO Loera Facility:[facility] Start: 08-21-2022 End: 08-22-2022 ambulatory [facility]IE [facility] Facility:[facility] Start: 07-27-2022 End: 07-28-2022 ambulatory CECILIA [...] 03-08-2022 End: 03-08-2022 ambulatory Stephanie Tico Other [facility] Other Start: 03-08-2022 Office outpatient vi sit 15 minutes Stephanie Tico [facility] Start: 03-03-2022 End: 03-04-2022 ambulatory TEASEL SETTER MCKAYLA BLAS Facility:[facility] Start: 02-20-2022 End: 02-20-2022 ambulatory Stephanie Tico Other [facility] Other Start: 02-20-2022 Office outpatient ne w 45 minutes Stephanie Tico [facility] Start: 02-06-2022 End: 02-06-2022 Patient encounter procedure Elbert VARGAS [facility] Start: 01-19-2022 End: 01-20-2022 ambulatory GIL VALENZUELA . Facility:[facility] Start: 12-24-2021 End: 12-24-2021 ambulatory OLE RAMIREZ Facility:[facility] Start: 08-26-2020 End: 09-10-2020 Patient encounter procedure MARY TAVERAS Facility:[facility] Start: 10-30-2019 End: 10-30-2019 Emergency department patient visit JAMES Reis [facility] Start: 10-30-2019 End: 10-30-2019 Emergency department patient visit James Desouza [facility] Emergency Department Start: 11-02-2016 Preoperative state Stephanie Tico Other [facility] Other Procedures Date Procedure Procedure Detail Performing Clinician Start: 11-22-2022 Mammography Mckayla clifford NP Work Phone: Start: 10-08-2015 Microscopic observat ion [Identifier] in Cervix by Cyto stain Mckayla Blas NP Work Phone: H/O: hysterectomy Elbert LARA Laparoscopic cholecystectomy Elbert VARGAS Operative procedure on foot Elbert VARGAS Plan of Treatment Date Care Activity Detail Author Start: 08-03-2025 Screening for malign ant neoplasm of colon [facility] Start: 11-24-2023 Urine screening for protein Diabetes: Urine Protein Screening [facility] Start: 11-23-2023 Screening for malign ant neoplasm of breast Mammogram [facility] Start: 10-15-2023 End: 10-15-2023 Patient encounter procedure 10/15/2023 4:30 PM EDT Office Visit [facility] [address] [place] [id number] Mckayla Blas, SILVANO [address] [place] [id number] [facility] Start: 08-09-2023 Hemoglobin A1c measurement Diabetes: Hemoglobin A1C [facility] Start: 05-27-2021 Glaucoma screening Diabetes: R etinopathy Screening [facility] Start: 03-09-2020 Influenza vaccination Flu vacc ine (Season Ended) [place], [place] Start: 10-07-2018 Screening for malign ant neoplasm of cervix [facility] Start: 2010 Lipid panel Lipid screen [place], [place] Start: 2000 Screening for malign ant neoplasm of cervix HPV/Cotest [facility] Start: 1991 Screening for malign ant neoplasm of cervix Cervical cancer screen [place], [place] Start: 1989 DTaP/Tdap/Td vaccine ( - Tdap) DTaP/Tdap/Td vaccine ( - Tdap) [place] Start: 1985 HIV screening HIV screen Shantelle Alvarado [place], [place] Start: 1970 Medicare Annual Well ness (AWV) Medicare Annual Wellness (AWV) [facility] Start: 1970 Screening for malign ant neoplasm of colon [facility] Immunizations Immunization Date Immunization Notes Care Provider [facility]-18-2023 influenza, injectabl e, quadrivalent, contains preservative Mckayla Blas [employer] Work Phone: [facility] 07-19-2021 SARS-CoV-2 (COVID-19 ) mRNA BNT-162b2 vax [facility] 10-28-2020 SARS-CoV-2 (COVID-19 ) mRNA BNT-162b2 vax [facility] 10-08-2020 SARS-CoV-2 (COVID-19 ) mRNA BNT-162b2 vax [facility] Payers Date Payer Category Payer Private Health Insurance [id number] 2023 Medicare [id number] 2018 Medicaid MEDICAID [facility] [id number] 2018-Present [phone] [address] [place] [address] Medicaid [id number] 2017 Medicare [facility] MEDICARE [facility] DUAL COMPLETE [id number] 2017-Present [address] [place] [address] [id number] 1970 Unknown [id number] 2.16.840.1.275525.3.579.2. 647 1970 Unknown [id number] 2.16.840.1.441237.3.579.2. 593 1970 Unknown [id number] 2.16.840.1.985196.3.579.2. 593 1970 Unknown [id number] 2.16.840.1.322978.3.579.2. 593 1970 Unknown [id number] 2.16.840.1.838590.3.579.2. 593 1970 Unknown [id number] 2.16.840.1.685322.3.579.2. 593 1970 Unknown [id number] 2.16.840.1.629638.3.579.2. 593 1970 Unknown [id number] 2.16.840.1.225164.3.579.2. 593 1970 Unknown [id number] 2.16.840.1.774054.3.579.2. 593 1970 Unknown [id number] 2.16.840.1.626386.3.579.2. 593 1970 Unknown [id number] 2.16.840.1.519491.3.579.2. 593 1970 Unknown [id number] 2.16.840.1.880008.3.579.2. 593 1970 Unknown [id number] 2.16.840.1.425128.3.579.2. 593 1970 Unknown [id number] 2.16.840.1.432123.3.579.2. 593 1970 Unknown [id number] 2.16.840.1.008318.3.579.2. 593 1970 Unknown [id number] 2.16.840.1.925712.3.579.2. 593 1970 Unknown [id number] 2.16.840.1.736149.3.579.2. 593 1970 Unknown [id number] 2.16.840.1.632774.3.579.2. 593 1970 Unknown [id number] 2.16.840.1.778515.3.579.2. 593 1970 Unknown [id number] 2.16.840.1.243331.3.579.2. 593 1970 Unknown [id number] 2.16.840.1.622067.3.579.2. 593 1970 Unknown [id number] 2.16.840.1.276189.3.579.2. 593 1970 Unknown [id number] 2.16.840.1.211304.3.579.2. 593 1970 Unknown [id number] 2.16.840.1.086301.3.579.2. 1259 1970 Unknown [id number] 2.16.840.1.474805.3.579.2. 1259 1970 Unknown [id number] 2.16.840.1.666364.3.579.2. 1259 1970 Unknown [id number] 2.16.840.1.931032.3.579.2. 1259 1970 Unknown [id number] 2.16.840.1.498539.3.579.2. 1259 1970 Unknown [id number] 2.16.840.1.580994.3.579.2. 727 1959 Medicaid [id number] 1959 Private Health Insurance [id number] 1959 Unknown [id number] 2.16.840.1.914431.19 Social History Date Type Detail Facility Start: 02-17-2014 End: 07-10-2023 Tobacco smoking status NHIS Current every day smoker [place], [place] Start: 02-17-1994 History of tobacco use Cigarette Smo ker [place] Start: 02-17-2014 End: 07-10-2023 Cigarettes smoked current (pack per day) - Reported [place], [place] Start: 02-17-2014 Alcohol intake Current drinke r of alcohol (finding) [place] Start: 02-17-2014 Alcohol Comment Rare [place] Start: 1970 Sex Assigned At Not on file [place], [place] Exposure to SARS-CoV -2 (event) Unable to assess [place], [place] Start: 02-06-2022 Tobacco smoking status Smoker (findi ng) [facility] Start: 07-10-2023 Sex [facility]igned At [facility] Start: 11-15-2022 Tobacco smoking status Heavy t obacco smoker (finding) [facility] Start: 07-10-2023 Tobacco use and exposure Smoke less tobacco non-user [facility] Start: 07-10-2023 Alcohol intake Lifetime non-d adrien (finding) [facility] Within the last year , have you been afraid of your partner or ex-partner? No [facility] Do you belong to any clubs or organizations such as religion groups, unions, fraternal or athletic groups, or [...] (one) time each day. Use as instructed [id number] Functional Status Date Assessment Result Facility 11-15-2022 Functional Status N/A [facility] 02-06-2022 Functional Status N/A [facility] Clinical Notes 01-19-2022 to 11-14-2023 Note Date & Type Note Facility 11-14-2023 Note [facility] Subjective Mitzi Macias is a 53 y.o. year old female being seen as new patient to establish care. Ref from Mckayla Blas CNP for pulmonary hypertension. She had echo in Aug 2023 while inpatient at [facility] for pneumonia and COPD exacerbation. Denies [...] was admitted in early 2023 to the [facility] with hypoxemia and treated as COPD [...] wheelchair Skin: Gene (more content not included)... [facility] 11-15-2022 Hospital Discharg e instructions [...] include: ?8 oz (237 mL) of milk, ogvhksh-vbucvqeekrxs-faduh milk, and calcium-fortifiedfruit juice. Calcium-fortified means that [...] ?Spinach (cooked), rhubarb, beets, sweet potatoes, and Gibraltarian chard. ?Peanuts. ?Potato chips, nepali fries, and baked potatoes with skin on. ?Nuts and nut products. ?Chocolate. If you regularly take a diuretic medicine, make sure to eat at least 1 or 2 servings of fruits or vegetables that are high in potassium each day. These include: ?Avocado. ?Banana. ?Chester, prune, carrot, or tomato juice. ?Baked potato. [...] magnesium, fish oil, or vitamin B6. Take oiiz-irh-dvwyxtd and prescription medicines only as told by [...] Casseroles. Pizza. Lasagna. Frozen meals. Potato chips. Welsh fries. The items listed above may not [...] provider. Document Revised: 03/06/2022 Document Reviewed: 03/06/2022 [employer] Patient Education 2022 [employer]. Follow Up Care 02/06/2022 11:44:09 With:SARAH VEGA PA-C, URL Address: [address] [facility] [place] [address] When: Unknown [facility] 08-24-2022 Note CONSULTATION CONSULTATION DATE: 08/24/2022 [...] We maintain her on pain medication with Marianna 5/325 t.i.d., diclofenac 75 mg b.i.d. Her [...] her at this point. A refill for Marianna 5/325 t.i.d. and diclofenac 75 mg b.i.d. will be sent to the pharmacy. Vitamin compliance and nutrition were discussed and enforced. I did highly encourage her to use exercise bands to increase the strength in her lower extremities. We will see her in three months' time, unless otherwise indicated, and patient agrees. [facility] 05-11-2022 Note CONSULTATION CONSULTATION DATE: 05/11/2022 [...] 150. Medications include Lyrica 300 mg b.i.d., Marianna 5/325 t.i.d., diclofenac 75 mg b.i.d. and [...] her medications today. We will maintain Lyrica, Marianna and diclofenac at the set dose and frequency. We will follow-up in the clinic in three months' time. The patient is in agreement to this. Vitamin importance and nutrition were discussed. [facility] 04-20-2022 Note CONSULTATION CONSULTATION DATE: 04/20/2022 [...] medications include Tylenol, Lyrica 300 mg b.i.d., Marianna 5/325 t.i.d., amitriptyline, diclofenac and duloxetine. Patient's [...] up in the clinic. [facility] 03-08-2022 Evaluation note Encounter Date Diagnosis [...] to the DANIEL. Thrombocytopenia is unclear etiology. [facility] Other 08-15-2022 Evaluation note* Encounter Date Diagnosis [...] follow with Dr. Souza and Dr. Vargas. [facility] Other 08-01-2022 Hospital Discharge instructions Patient Education [...] fried and sweet foods. General instructions Take lcsa-wts-buxhdkm and prescription medicines only as told by [...] 04/21/2010 Document Revised: 10/16/2019 Document Reviewed: 07/11/2018 [employer] Patient Education 2020 [employer]. Follow Up Care 01/05/2022 12:02:03 With:REGLA PHIPPS, Elbert Joya, URL Address: [facility] [address], [place] [address]- [phone] When:Within 6 Month(s) Comments:w/ repeat CT A/P [facility] 07-14-2022 NoteCONSULTATION PROCEDURE DATE: 01/19/2022 PRE [...] pattern and the patient tolerated it well. [facility] Signed and Approved by: GIL VALENZUELA . 01/27/2022 14:15:00[facility]07-14-2022 NoteCONSULTATION CONSULTATION DATE: 01/19/2022 This is [...] today. Medications include Lyrica 300 mg b.i.d., Marianna 5/325 t.i.d., diclofenac 75 mg b.i.d. and [...] in three months' time unless otherwise indicated. [facility] Signed and Approved by: GIL VALENZUELA . 01/27/2022 14:15:00[facility] HospitalEvaluation + Plan note Future Appointments Appointment Date:08/14/2022 09:15:00 AM Scheduled Provider:Elbert VARGAS MD Location:[facility] Appointment Type:URO Office Visit [facility] evaluation + Plan note Future Appointments Appointment Date:04/22/2024 10:00:00 AM Scheduled Provider:SARAH VEGA PA-C Location:[facility] Appointment Type:URO Office Visit [facility] evaluation note* Diagnosis Type 2 diabetes mellitus with unspecified complications (CMS/[facility]) Edema, unspecified Edema documented in this encounter [...] History sepsis 2010 Hospitalization History SEE ABOVE [facility] Other Hospital course Narrative No data available for this section [facility] progress note No data available for this section [facility] reason for referral (narrative) , Referral to Dr. Cortés Referred by: Elbert VARGAS MD [facility] Advance Directives No Advanced Directives Records FoundDocuments on File Type Date Recorded Patient Shoder Filler Expl anation Advance Directives and Living Will Power of Manuscript Reader Summary Purpose Family History No Family History Records FoundNo Family History Records FoundNo Family History Records FoundNo Family History Records FoundNo Family History Records FoundNo Family History Records Found Additional Source Comments INFORMATION SOURCE (unrecogn ized section and content) DATE CREATED AUTHOR 10/30/2019 [facility] DATE CREATED AUTHOR AUTHOR'S ORGANIZ ATION 09/15/2020 [facility] DATE CREATED AUTHOR AUTHOR'S ORGANIZ ATION 12/19/2022 [facility] DATE CREATED AUTHOR AUTHOR'S ORGANIZ ATION 11/16/2023 [facility] DATE CREATED AUTHOR AUTHOR'S ORGANIZ ATION 01/23/2024 [facility] EPIC DATE CREATED AUTHOR AUTHOR'S ORGANIZ ATION 01/26/2024 [facility] Care Team (unrecognized sect ion and content) Naturopathic Doctor Relationship Specialty Start Date End Date Ty Amin MD PCP - General Family Medicine 01/05/23 Naturopathic Doctor Relationship Specialty Start Date End Date Ty [...] BE BASED ON THE PRIMARY CLINICAL RECORDS. [employer] provides no warranty or guarantee of the accuracy or completeness of information in this document.
--- NOTE | 2024-04-09 13:29 | P.CN_ITS ---
Consult Note: HPI Data of Consult Patient: known to practice within the last 3 years Requesting Physician: Angela Cochran NP Primary Care Provider: Mckayla Blas NP Consult Narrative Reason for consult: f/u Narrative: Mitzi Macias a pleasant 53 year old female presents for evaluation and management of low back and right hip pain. Today pain 7/10. Describes it as an aching pain in low back, sharp in right hip, pain increased with standing, walking, transitioning, stairs. Tolerating current medication regimen well without side effects. Patient has a longstanding hx of low back and leg pain unresponsive to PT/HEP greater than 6 weeks, tylenol, ibuprofen/motrin/aleve, heat/ice, and tylenol. Patient feels her lumbar RFA has worn off, however shes reporting increase in right leg pain/heaviness/weakness. cc:: CC: Angela Cochran NP Review of Systems ROS Status of ROS 10 or more systems reviewed and unremark able except as noted in history and below Musculoskeletal Reports: back pain and extremity pain PFSH PFSH Medical History Hypertension ?I10 - Essential (primary) hypertension (ICD-10) Obesity ?E66.9 - Obesity, unspecified (ICD-10) Amputation toe ?S98.139A - Complete traumatic amputation of one unspecified lesser toe, initial encounter (ICD-10) Neuropathy ?G62.9 - Polyneuropathy, unspecified (ICD-10) Acid reflux ?K21.9 - Gastro-esophageal reflux disease without esophagitis (ICD-10) Diabetes ?E11.9 - Type 2 diabetes mellitus without complications (ICD-10) COPD (chronic obstructive pulmonary disease) ?J44.9 - Chronic obstructive pulmonary disease, unspecified (ICD-10) Asthma ?J45.909 - Unspecified asthma, uncomplicated (ICD-10) High cholesterol ?E78.00 - Pure hypercholesterolemia, unspecified (ICD-10) Surgical History History of hammertoe correction ?Z98.890 - Other specified postprocedural states (ICD-10) ?Z87.39 - Personal history of other diseases of the musculoskeletal system and connective tissue (ICD-10) Hx of cholecystectomy ?Z90.49 - Acquired absence of other specified parts of digestive tract (ICD- 10) History of hysterectomy ?Z90.710 - Acquired absence of both cervix and uterus (ICD-10) Social History Within the past year, how often did you have a drink containing alcohol: never Score interpretation: A score less than 3 is consistent with normal alcohol consumption. Smoking status: Former smoker Highest level of school completed/degree received: Associate degree: occupational, technical, vocational program Meds Home Medications and Allergies Home Medications ?Medication ?Instructions ?Recorded ?Confirmed ?Type acetaminophen 500 mg capsule 1,000 mg PO Q6H PRN fever or pain 03/20/23 11/27/23 History amitriptyline 25 mg tablet 25 mg PO DAILY 03/20/23 11/27/23 History aspirin 81 mg tablet,delayed 81 mg PO DAILY 03/20/23 11/27/23 History release (Adult Aspirin Regimen) budesonide-formoterol HFA 160 2 inh inhalation BID 03/20/23 11/27/23 History mcg-4.5 mcg/actuation aerosol inhaler (Symbicort) furosemide 40 mg tablet 40 mg PO DAILY 03/20/23 11/27/23 History insulin aspart U-100 100 unit/mL 1 sliding scale dose subcut 03/20/23 11/27/23 History (3 mL) subcutaneous pen (Novolog USEASDIRECTD FlexPen U-100 Insulin aspart) insulin glargine 100 unit/mL 58 unit subcut BID 03/20/23 11/27/23 History subcutaneous solution (Lantus U-100 Insulin) lisinopril 20 mg tablet 20 mg PO DAILY 03/20/23 11/27/23 History omeprazole 20 mg capsule,delayed 20 mg PO DAILY 03/20/23 11/27/23 History release pregabalin 300 mg capsule 300 mg PO Q12H 03/20/23 11/27/23 History duloxetine 60 mg capsule,delayed 60 mg PO BID #60 caps 04/05/23 11/27/23 Rx release hydrocodone 5 mg-acetaminophen 325 1 tab PO TID PRN pain #90 tabs 09/04/23 11/27/23 Rx mg tablet dapagliflozin propanediol 10 mg 10 mg PO .QD 09/10/23 11/27/23 History tablet ergocalciferol (vitamin D2) 1,250 50,000 unit PO QWEEK 09/10/23 11/27/23 History mcg (50,000 unit) capsule potassium chloride 10 mEq 10 meq PO .QD 09/10/23 11/27/23 History capsule,extended release simvastatin 10 mg tablet 10 mg PO QAM 09/10/23 11/27/23 History hydralazine 25 mg tablet 25 mg PO BID #60 tabs 09/13/23 11/27/23 Rx oseltamivir 75 mg capsule 75 mg PO BID #6 caps 09/13/23 11/27/23 Rx hydrocodone 5 mg-acetaminophen 325 1 tab PO TID PRN pain #90 tabs 11/08/23 11/27/23 Rx mg tablet hydrocodone 5 mg-acetaminophen 325 1 tab PO TID PRN pain #90 tabs 12/06/23 Rx mg tablet hydrocodone 5 mg-acetaminophen 325 1 tab PO TID PRN pain #90 tabs 01/09/24 Rx mg tablet hydrocodone 5 mg-acetaminophen 325 1 tab PO TID PRN pain #90 tabs 02/07/24 Rx mg tablet hydrocodone 5 mg-acetaminophen 325 1 tab PO TID PRN pain #90 tabs 03/06/24 Rx mg tablet hydrocodone 5 mg-acetaminophen 325 1 tab PO TID PRN pain #90 tabs 04/02/24 Rx mg tablet amoxicillin 875 mg-potassium 1 tab PO Q12H #20 tabs 04/04/24 Rx clavulanate 125 mg tablet Allergies Allergy/AdvReac Type Severity Reaction Status Date / Time No Known Drug Allergies Allergy Verified 11/27/23 09:57 Exam Constitutional Documenting provider has reviewed patient's vital signs: yes Common normals: no apparent distress, oriented x3, healthy appearing, alert and well nourished General appearance: cooperative Nutritional appearance: obese HENMT Common normals: normocephalic, hearing grossly normal bilaterally and moist oral mucous membranes Head and scalp: normocephalic Eye Common normals: PERRL Pupil: PERRL Neck & C-Spine Common normals: full ROM General: normal visual inspection Chest Common normals: inspection of chest normal Respiratory Common normals: normal respiratory effort, no retractions and no use of accessory muscles Back & Pelvis Lumbar spine/lower back: ROM limited, pain with ROM and straight leg raise positive right; straight leg raise negative left Sacroiliac joints: SI joints normal Other: altered sensation to right L4,5,s1 pattern Neuro Common normals: oriented x3, CN's II-XII intact bilaterally, moves all extremities, no focal motor deficits, no sensory deficits noted and deep tendon reflexes 2+ bilaterally Sensorium/orientation: alert Motor exam: no movement abnormalities noted and strength abnormal (4/5 in RLE 5/5 in LLE) Psych Common normals: mental status grossly normal, thought process normal, cooperative, affect normal, speech normal and activity/motor behavior normal Speech: normal speech Thought process: normal thought process Results Additional Findings Additional findings: If on a controlled substance or opioids, I have checked an [place]ARRS report on this patient and there are no aberrancies noted in the prescribing history.??If on a controlled substance or opioid a drug screen was completed and reviewed within the last year, and if there has not been a drug screen completed we ordered one today to monitor higher risk, state monitored pain medication use. As part of providing excellent, safe, comprehensive care, the following was completed at our patient's visit: 1. A medication reconciliation and review to ensure accurate knowledge of current/active medications, including asking our patients to inform us about any avvh-zok-teikecs medications or herbal remedies/nutritional supplements/alternative remedies. 2. A review to specifically ensure our patients have had annual screening for screening for depression, screening for tobacco use, and screening for unhealthy alcohol use. For concerning screenings had a discussion with the patient, provided patient education, and recommended follow-up with primary care provider when appropriate. If patient noted with a risk of falling, they received education on strength, gait, and balance training to prevent future risk of falling. Assessment and Plan Assessment and Plan (1) Lumbar degenerative disc disease: (2) Chronic pain syndrome: (3) Lumbar spondylosis: (4) Chronic prescription opiate use: (5) Osteoarthritis of hip: Qualifiers: Osteoarthritis type: unspecified Laterality: unspecified laterality Qualified Code(s): M16.9 - Osteoarthritis of hip, unspecified (6) Chronic right hip pain: (7) Lumbar stenosis with neurogenic claudication: Plan update lumbar MRI without contrast to evaluate lumbar DDD, lumbar stenosis with NC continue current medications, tolerating well without side effects. reports mild to moderate improvement in pain with PRN norco 5-325mg TID PRN f/u to review MRI
== END 2024-04-09 13:04 | disposition home or self-care (01) ==
LOC: PM 13:04
PROVIDERS: PCP Nurse Practitioner; Visit Provider Nurse Practitioner
DX: M51.369 Other intervertebral disc degeneration, lumbar region without mention of lumbar back pain or lower extremity pain (principal); G89.4 Chronic pain syndrome; M47.816 Spondylosis without myelopathy or radiculopathy, lumbar region; Z79.891 Long term (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 opiate analgesic; M16.9 Osteoarthritis of hip, unspecified; M25.551 Pain in right hip; M48.062 Spinal stenosis, lumbar region with neurogenic claudication
CPT/HCPCS: G0463

== ENCOUNTER 2024-04-14 16:11 | Outpatient (OUT) | payer MEDICARE, OTHER, SELFPAY ==
--- OUTSIDE RECORDS SUMMARY | 2024-04-14 16:27 | XMS_ITS | CCD ---
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 Name Role Phone James Desouza Primary Care Provider JAMES DESOUZA Primary Care Unavailable SHENDGE, VITHAL Admitting Unavailable SHENDGE, VITHAL Attending Unavailable AICHHOLZ, MCKAYLA Primary Care Unavailable AICHHOLZ, MCKAYLA Referring Unavailable AICHHOLZ, MCKAYLA J Primary Care Physician [phone] Tico, Stephanie Unavailable OLE RAMIREZ Attending Unavailable OLE RAMIREZ Consulting Unavailable AICHHOLZ, COIL INSPECTOR MCKAYLA Primary Care Unavailable OLE RAMIREZ Admitting Unavailable ANTONY SHRESTHA Consulting Unavailable ALONDRA ., UMBERTO Admitting Unavailable ALONDRA ., UMBERTO Attending Unavailable AICHHOLZ, COIL INSPECTOR MCKAYLA Primary Care Unavailable AFSANEH Loera, DR BOLANOS Consulting Unavailable MARYANNE POWER Consulting Unavailable GLENN KERR Consulting Unavailable YOMAIRA KERR Consulting Unavailable HATTIE GOFF Consulting Unavailable ALONDRA ., UMBERTO Consulting Unavailable TICO, STEPHANIE Attending Unavailable TICO, STEPHANIE Consulting Unavailable AICHHOLZ, COIL INSPECTOR MCKAYLA Primary Care Unavailable TICO, STEPHANIE Admitting Unavailable REGLA ., DR DUMONT Admitting Unavailable AICHHOLZ, COIL INSPECTOR MCKAYLA Primary Care Unavailable REGLA ., DR DUMONT Attending Unavailable VARGAS ., DR DUMONT Consulting Unavailable COLLIN HUERTAS Consulting Unavailable CECILIA KAUFMAN Admitting Unavailable CECILIA KAUFMAN Attending Unavailable AICHHOLZ, COIL INSPECTOR MCKAYLA Primary Care Unavailable RAFAEL GONGORA Attending Unavailable RAFAEL GONGORA Admitting Unavailable AICHHOLZ, COIL INSPECTOR MCKAYLA Primary Care Unavailable AICHHOLZ, COIL INSPECTOR MCKAYLA Admitting Unavailable AICHHOLZ, COIL INSPECTOR MCKAYLA Primary Care Unavailable AICHHOLZ, COIL INSPECTOR MCKAYLA Attending Unavailable AICHHOLZ, COIL INSPECTOR MCKAYLA Consulting Unavailable LAKSHMIPATHY ., NARENDRANATH Attending Anette vailable LAKSHMIPATHY ., NARENDRANATH Consulting Anette vailable LAKSHMIPATHY ., NARENDRANATH Admitting Anette vailable AICHHOLZ, COIL INSPECTOR MCKAYLA Primary Care Unavailable VALENZUELA ., GIL Consulting Unavailable MORTENSEN ., DR CHAPARRO Aguillon Attending Unavailable MORTENSEN ., DR CHAPARRO Aguillon Admitting Unavailable AICHHOLZ, COIL INSPECTOR MCKAYLA Primary Care Unavailable VALENZUELA ., GIL Consulting Unavailable MORTENSEN ., DR CHAPARRO Aguillon Admitting Unavailable AICHHOLZ, COIL INSPECTOR MCKAYLA Primary Care Unavailable MORTENSEN ., DR CHAPARRO Aguillon Attending Unavailable HALKER ., SUBHASH Consulting Unavailable LAKSHMIPATHY ., NARENDRANATH Admitting Anette vailable LAKSHMIPATHY ., NARENDRANATH Attending Anette vailable AICHHOLZ, COIL INSPECTOR MCKAYLA Primary Care Unavailable MORTENSEN ., DR CHAPARRO Aguillon Attending Unavailable MORTENSEN ., DR CHAPARRO Aguillon Admitting Unavailable VALENZUELA ., GIL Consulting Unavailable AICHHOLZ, COIL INSPECTOR MCKAYLA Primary Care Unavailable VALENZUELA ., GIL Consulting Unavailable MORTENSEN ., DR CHAPARRO Aguillon Attending Unavailable MORTENSEN ., DR CHAPARRO Aguillon Admitting Unavailable AICHHOLZ, COIL INSPECTOR MCKAYLA Primary Care Unavailable HATTIE BRODERICK Attending Unavailable HATTIE BRODERICK Admitting Unavailable AICHHOLZ, COIL INSPECTOR MCKAYLA Primary Care Unavailable AICHHOLZ, COIL INSPECTOR MCKAYLA Admitting Unavailable AICHHOLZ, COIL INSPECTOR MCKAYLA Consulting Unavailable AICHHOLZ, COIL INSPECTOR MCKAYLA Primary Care Unavailable AICHHOLZ, COIL INSPECTOR MCKAYLA Attending Unavailable AICHHOLZ, COIL INSPECTOR MCKAYLA Primary Care Unavailable MISC, DR LESLIE Admitting Unavailable MISC, DR LESLIE Attending Unavailable MISC, DR LESLIE Consulting Unavailable DIAB ., MARIANO Admitting Unavailable DIAB ., MARIANO Attending Unavailable DIAB ., MARIANO Consulting Unavailable AICHHOLZ, COIL INSPECTOR MCKAYLA Primary Care Unavailable RASTEGAR, RICCO Consulting Unavailable AICHHOLZ, COIL INSPECTOR MCKAYLA Admitting Unavailable AICHHOLZ, COIL INSPECTOR MCKAYLA Primary Care Unavailable AICHHOLZ, COIL INSPECTOR MCKAYLA Attending Unavailable AICHHOLZ, COIL INSPECTOR MCKAYLA Consulting Unavailable DR PATRICIA IVAN Consulting Unavailable TAMLYN ., CECILIA Attending Unavailable TAMLYN ., CECILIA Admitting Unavailable DR PATRICIA IVAN Consulting Unavailable AICHHOLZ, COIL INSPECTOR MCKAYLA Primary Care Unavailable TAMLYN ., CECILIA Consulting Unavailable MORTENSEN ., DR CHAPARRO Aguillon Attending Unavailable FESTUS ., DR CHAPARRO Aguillon Consulting Unavailable FESTUS ., DR CHAPARRO Aguillon Admitting Unavailable AICHHOLZ, COIL INSPECTOR MCKAYLA Primary Care Unavailable HATTIE BRODERICK Attending Unavailable HATTIE BRODERICK Consulting Unavailable HATTIE BRODERICK Admitting Unavailable AICHHOLZ, COIL INSPECTOR MCKAYLA Primary Care Unavailable HATTIE BAUTISTA Unavailable AICHHOLZ, COIL INSPECTOR MCKAYLA Admitting Unavailable AICHHOLZ, COIL INSPECTOR MCKAYLA Attending Unavailable AICHHOLZ, COIL INSPECTOR MCKAYLA Consulting Unavailable AICHHOLZ, COIL INSPECTOR MCKAYLA Primary Care Unavailable Ty Amin MD Primary Care Provider [phone] BHARAT AGUILAR Attending Unavailable AICHHOLZ, MCKAYLA Attending Unavailable AICHHOLZ, MCKAYLA Attending Unavailable AICHHOLZ, MCKAYLA Attending Unavailable AICHHOLZ, MCKAYLA Attending Unavailable AICHHOLZ, MCKAYLA Attending Unavailable SARAH VEGA Attending Unavailable Allergies Allergy Classification Reported Allergen(s) Allergy Type Date of Onset Reaction(s) Facility (1 source) No Known Medication Allergies; 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: [No Known Medication Allergies] Propensity to adverse reactions (disorder) [facility] Repository Medications Current Medications Medication Drug Class(es) Dates Sig (Normalized) Sig (Original) acetaminophen 325 mg / HYDROcodone bitartrate 5 mg oral tablet (6 sources) Opioid Agonist Start: 02-06-2022 acetaminophen-hydr ocodone 325 mg-5 mg oral tablet Refill(s) 0 Start Date: 02/06/22 Status: Ordered HYDROcodone-acet aminophen (Colony) 5-325 MG tablet 1 tablet 3 (three) times a day as needed for severe pain. 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 Unclassified (1 source) ACCOUNTS RECEIVABLE BOOKKEEPER INJECT NONINSULN ANTIDIAB; 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: [RESIDENTIAL INJECT NONINSULN ANTIDIAB] Onset: 12-05-2022 Unclassified (3 [...] Range Facility Office Visiton 11-14-2023 Follow-up visit [id number] Mitzi Macias 1970 F Date Provider Department Center 11/14/2023 BHARAT NICOLE [facility] Family History Problem Relation Age of Onset Heart attack Paternal Grandmother Family Status - Relation Status Age at Paternal Grandmother Level of Service:67179 ID OFFICE/OUTPATIENT NEW LOW MDM [address] [facility] CBC AUTO DIFFon 12-06-2022 BASO # 0.0 103/ul Normal 0.0-0.1 [facility] Comment on above: Performed By: #### C BC #### [facility] [address] [place] [address] Dr. Ashlie Hills Basophils/100 WBC (Bld) 0.1 % Critically low 0.2-2.0 [facility] Comment on above: Performed By: #### C BC #### [facility] [address] [place] [address] Dr. Ashlie Hills EO # 0.0 103/ul Normal 0.0-0.7 [facility] Comment on above: Performed By: #### C BC #### [facility] [address] [place] [address] Dr. Ashlie Hills Eosinophils/100 WBC (Bld) 0.0 % Critically low 0.9-7.0 [facility] Comment on above: Performed By: #### C BC #### [facility] [address] [place] [address] Dr. Ashlie Hills Erythrocyte distribution width (RBC) [Ratio] 14.9 % Normal 11.0-15.0 [facility] Comment on above: Performed By: #### C BC #### [facility] [address] [place] [address] Dr. Ashlie Hills Hematocrit (Bld) [Volume fraction] 46.2 % Normal 36.0-48.0 [facility] Comment on above: Performed By: #### C BC #### [facility] [address] [place] [address] Dr. Ashlie Hills Hemoglobin (Bld) [Mass/Vol] 14.7 g/dL Normal 12.0-16.0 [facility] Comment on above: Performed By: #### C BC #### [facility] [address] [place] [address] Dr. Ashlie Hills IG # 0.06 10e3/ul Critically high 0.00-0.03 [facility] Comment on above: Performed By: #### C BC #### [facility] [address] [place] [address] Dr. Ashlie Hills IG % 0.4 % Normal 0.0-0.5 [facility] Comment on above: Performed By: #### C BC #### [facility] [address] [place] [address] Dr. Ashlie Hills LYMPH # 1.3 103/ul Normal 1.2-3.8 [facility] Comment on above: Performed By: #### C BC #### [facility] [address] [place] [address] Dr. Ashlie Hills Lymphocytes/100 WBC (Bld) 9.4 % Critically low 20.5-60.0 [facility] Comment on above: Performed By: #### C BC #### [facility] [address] [place] [address] Dr. Ashlie Hills MANUAL DIFF REQ NO Normal [facility] Comment on above: Performed By: #### C BC #### [facility] [address] [place] [address] Dr. Ashlie Hills MCH (RBC) [Entitic mass] 28.4 pg Normal 26.7-34.0 [facility] Comment on above: Performed By: #### C BC #### [facility] [address] [place] [address] Dr. Ashlie Hills MCHC (RBC) [Mass/Vol] 31.8 g/dL Normal 29.9-35.2 [facility] Comment on above: Performed By: #### C BC #### [facility] [address] [place] [address] Dr. Ashlie Hills MCV (RBC) [Entitic vol] 89.4 fL Normal 81.0-99.0 [facility] Comment on above: Performed By: #### C BC #### [facility] [address] [place] [address] Dr. Ashlie Hills MONO # 0.5 103/ul Normal 0.3-0.8 [facility] Comment on above: Performed By: #### C BC #### [facility] [address] [place] [address] Dr. Ashlie Hills Monocytes/100 WBC (Bld) 3.4 % Normal 1.7-12.0 [facility] Comment on above: Performed By: #### C BC #### [facility] [address] [place] [address] Dr. Ashlie Hills NEUT # 11.8 103/ul Critically high 1.4-6.5 [facility] Comment on above: Performed By: #### C BC #### [facility] [address] [place] [address] Dr. Ashlie Hills Neutrophils/100 WBC (Bld) 86.7 % Critically high 43.0-75.0 [facility] Comment on above: Performed By: #### C BC #### [facility] [address] [place] [address] Dr. Ashlie Hills Platelet mean volume (Bld) [Entitic vol] 12.6 fL Normal 9.5-13.5 [facility] Comment on above: Performed By: #### C BC #### [facility] [address] [place] [address] Dr. Ashlie Hills PLT 133 103/ul Critically low 150-450 [facility] Comment on above: Performed By: #### C BC #### [facility] [address] [place] [address] Dr. Ashlie Hills RBC 5.17 106/ul Normal 4.20-5.40 [facility] Comment on above: Performed By: #### C BC #### [facility] [address] [place] [address] Dr. Ashlie Hills WBC 13.6 103/ul Critically high 4.0-11.0 [facility] Comment on above: Performed By: #### C BC #### [facility] [address] [place] [address] Dr. Ashlie Hills MAGNESIUMon 12-06-2022 Magnesium [Mass/Vol] 2.2 mg/dL Normal 1.8-2.4 [facility] Comment on above: Performed By: #### I NFLUAB #### [facility] [address] [place] [address] Dr. Ashlie Hills POINT OF CARE GLUCOSEon 11-08 Glucose [Mass/Vol] 340 mg/dL Critically high 74-106 [facility] Comment on above: Performed By: #### P OCGLUC #### [facility] [address] [place] [address] Dr. Ashlie Hills Glucose [Mass/Vol] 276 mg/dL Critically high 74-106 [facility] Comment on above: Performed By: #### C BC #### [facility] [address] [place] [address] Dr. Ashlie Hills Glucose [Mass/Vol] 333 mg/dL Critically high 74-106 [facility] Comment on above: Performed By: #### C BC #### [facility] [address] [place] [address] Dr. Ashlie Hills PROF CHEM 8 (BAS METB)on Anion gap [Moles/Vol] 10.9 mmol/L Normal [facility] Comment on above: Performed By: #### I NFLUAB #### [facility] [address] [place] [address] Dr. Ashlie Hills Calcium [Mass/Vol] 9.3 mg/dL Normal 8.5-10.1 [facility] Comment on above: Performed By: #### I NFLUAB #### [facility] [address] [place] [address] Dr. Ashlie Hills Chloride [Moles/Vol] 103 mmol/L Normal 98-107 [facility] Comment on above: Performed By: #### I NFLUAB #### [facility] [address] [place] [address] Dr. Ashlie Hills CO2 [Moles/Vol] 31.2 mmol/L Normal 21.0-32.0 [facility] Comment on above: Performed By: #### I NFLUAB #### [facility] [address] [place] [address] Dr. Ashlie Hills Creatinine [Mass/Vol] 0.96 mg/dL Normal 0.55-1.02 [facility] Comment on above: Performed By: #### I NFLUAB #### [facility] [address] [place] [address] Dr. Ashlie Hills EGFR-AF GABONESE >60 Normal >=60 [facility] Comment on above: Performed By: #### I NFLUAB #### [facility] [address] [place] [address] Dr. Ashlie Hills EGFR-NON AF GABONESE >60 Normal >=60 [facility] Comment on above: Performed By: #### I NFLUAB #### [facility] [address] [place] [address] Dr. Ashlie Hills Glucose [Mass/Vol] 288 mg/dL Critically high 74-106 [facility] Comment on above: Performed By: #### I NFLUAB #### [facility] [address] [place] [address] Dr. Ashlie Hills Potassium [Moles/Vol] 5.1 mmol/L Normal 3.5-5.1 [facility] Comment on above: Performed By: #### I NFLUAB #### [facility] [address] [place] [address] Dr. Ashlie Hills Sodium [Moles/Vol] 140 mmol/L Normal 136-145 [facility] Comment on above: Performed By: #### I NFLUAB #### [facility] [address] [place] [address] Dr. Ashlie Hills Urea nitrogen [Mass/Vol] 30.0 mg/dL Critically high 7.0-18.0 [facility] Comment on above: Performed By: #### I NFLUAB #### [facility] [address] [place] [address] Dr. Ashlie Hills Urea nitrogen/Creatinine [Mass ratio] 31.2 mg/mg Normal [facility] Comment on above: Performed By: #### I NFLUAB #### [facility] [address] [place] [address] Dr. Ashlie Hills CBC AUTO DIFFon 12-05-2022 BASO # 0.0 103/ul Normal 0.0-0.1 [facility] Comment on above: Performed By: #### C BC #### [facility] [address] [place] [address] Dr. Ashlie Hills Basophils/100 WBC (Bld) 0.4 % Normal 0.2-2.0 [facility] Comment on above: Performed By: #### C BC #### [facility] [address] [place] [address] Dr. Ashlie Hills EO # 0.0 103/ul Normal 0.0-0.7 [facility] Comment on above: Performed By: #### C BC #### [facility] [address] [place] [address] Dr. Ashlie Hills Eosinophils/100 WBC (Bld) 0.0 % Critically low 0.9-7.0 [facility] Comment on above: Performed By: #### C BC #### [facility] [address] [place] [address] Dr. Ashlie Hills Erythrocyte distribution width (RBC) [Ratio] 14.8 % Normal 11.0-15.0 [facility] Comment on above: Performed By: #### C BC #### [facility] [address] [place] [address] Dr. Ashlie Hills Hematocrit (Bld) [Volume fraction] 49.9 % Critically high 36.0-48.0 [facility] Comment on above: Performed By: #### C BC #### [facility] [address] [place] [address] Dr. Ashlie Hills Hemoglobin (Bld) [Mass/Vol] 15.7 g/dL Normal 12.0-16.0 [facility] Comment on above: Performed By: #### C BC #### [facility] [address] [place] [address] Dr. Ashlie Hills IG # 0.04 10e3/ul Critically high 0.00-0.03 [facility] Comment on above: Performed By: #### C BC #### [facility] [address] [place] [address] Dr. Ashlie Hills IG % 0.5 % Normal 0.0-0.5 [facility] Comment on above: Performed By: #### C BC #### [facility] [address] [place] [address] Dr. Ashlie Hills LYMPH # 1.1 103/ul Critically low 1.2-3.8 [facility] Comment on above: Performed By: #### C BC #### [facility] [address] [place] [address] Dr. Ashlie Hills Lymphocytes/100 WBC (Bld) 12.7 % Critically low 20.5-60.0 [facility] Comment on above: Performed By: #### C BC #### [facility] [address] [place] [address] Dr. Ashlie Hills MANUAL DIFF REQ NO Normal [facility] Comment on above: Performed By: #### C BC #### [facility] [address] [place] [address] Dr. Ashlie Hills MCH (RBC) [Entitic mass] 28.1 pg Normal 26.7-34.0 [facility] Comment on above: Performed By: #### C BC #### [facility] [address] [place] [address] Dr. Ashlie Hills MCHC (RBC) [Mass/Vol] 31.5 g/dL Normal 29.9-35.2 [facility] Comment on above: Performed By: #### C BC #### [facility] [address] [place] [address] Dr. Ashlie Hills MCV (RBC) [Entitic vol] 89.3 fL Normal 81.0-99.0 [facility] Comment on above: Performed By: #### C BC #### [facility] [address] [place] [address] Dr. Ashlie Hills MONO # 0.1 103/ul Critically low 0.3-0.8 [facility] Comment on above: Performed By: #### C BC #### [facility] [address] [place] [address] Dr. Ashlie Hills Monocytes/100 WBC (Bld) 1.3 % Critically low 1.7-12.0 [facility] Comment on above: Performed By: #### C BC #### [facility] [address] [place] [address] Dr. Ashlie Hills NEUT # 7.2 103/ul Critically high 1.4-6.5 [facility] Comment on above: Performed By: #### C BC #### [facility] [address] [place] [address] Dr. Ashlie Hills Neutrophils/100 WBC (Bld) 85.1 % Critically high 43.0-75.0 [facility] Comment on above: Performed By: #### C BC #### [facility] [address] [place] [address] Dr. Ashlie Hills Platelet mean volume (Bld) [Entitic vol] 12.2 fL Normal 9.5-13.5 [facility] Comment on above: Performed By: #### C BC #### [facility] [address] [place] [address] Dr. Ashlie Hills PLT 116 103/ul Critically low 150-450 [facility] Comment on above: Performed By: #### C BC #### [facility] [address] [place], [place] [address] Dr. Ashlie Hills RBC 5.59 106/ul Critically high 4.20-5.40 [facility] Comment on above: Performed By: #### C BC #### [facility] [id number] Ashlie Hills WBC 8.5 103/ul Normal 4.0-11.0 [facility] Comment on above: Performed By: #### C BC #### [facility] [address] [place], [place] [address] Dr. Ashlie Hills CTA CHEST WO W [...] GOFF Date: 2022-12-05 01:52 Normal [facility] MAGNESIUMon 12-05-2022 Magnesium [Mass/Vol] 2.1 mg/dL Normal 1.8-2.4 [facility] Comment on above: Performed By: #### P OCGLUC #### [facility] [address] [place] [address] [address] Ashlie Hills POINT OF CARE GLUCOSEon 11-08 Glucose [Mass/Vol] 293 mg/dL Critically high 74-106 [facility] Comment on above: Performed By: #### P OCGLUC #### [facility] [address] [place] [address] Dr. Ashlie Hills Glucose [Mass/Vol] 269 mg/dL Critically high -106 [facility] Comment on above: Performed By: #### P OCGLUC #### [facility] [address] [address] [address] Ashlie Hills Glucose [Mass/Vol] 223 mg/dL Critically high -106 [facility] Comment on above: Performed By: #### C VDAGS #### [facility] [address] [place] [address] Dr. Ashlie Hills PROF CHEM 8 (BAS METB)on Anion gap [Moles/Vol] 11.6 mmol/L Normal [facility] Comment on above: Performed By: #### P OCGLUC #### [facility] [address] [place] [address] Dr. Ashlie Hills Calcium [Mass/Vol] 9.2 mg/dL Normal 8.5-10.1 [facility] Comment on above: Performed By: #### P OCGLUC #### [facility] [address] [place] [address] Dr. Ashlie Hills Chloride [Moles/Vol] 102 mmol/L Normal 98-107 [facility] Comment on above: Performed By: #### P OCGLUC #### [facility] [address] [place] [address] Dr. Ashlie Hills CO2 [Moles/Vol] 28.7 mmol/L Normal 21.0-32.0 [facility] Comment on above: Performed By: #### P OCGLUC #### [facility] [address] [address] [address] Ashlie Hills Creatinine [Mass/Vol] 1.04 mg/dL Critically high 0.55-1.02 [facility] Comment on above: Performed By: #### P OCGLUC #### [facility] [address] [address] [address] Ashlie Hills EGFR-AF GABONESE >60 Normal >=60 [facility] Comment on above: Performed By: #### P OCGLUC #### [facility] [address] [address] [address] Ashlie Hills EGFR-NON AF GABONESE 56 mL/min/1.73m2 Critically low >=60 [facility] Comment on above: Performed By: #### P OCGLUC #### [facility] [address] [address] [address] Ashlie Hills Glucose [Mass/Vol] 231 mg/dL Critically high 74-106 [facility] Comment on above: Performed By: #### P OCGLUC #### [facility] [address] [address] [address] Ashlie Hills Potassium [Moles/Vol] 4.3 mmol/L Normal 3.5-5.1 [facility] Comment on above: Performed By: #### P OCGLUC #### [facility] [address] [address] [address] Ashlie Hills Sodium [Moles/Vol] 138 mmol/L Normal 136-145 [facility] Comment on above: Performed By: #### P OCGLUC #### [facility] [address] [address] [address] Ashlie Hills Urea nitrogen [Mass/Vol] 17.0 mg/dL Normal 7.0-18.0 [facility] Comment on above: Performed By: #### P OCGLUC #### [facility] [address] [address] [address] Ashlie Hills Urea nitrogen/Creatinine [Mass ratio] 16.3 mg/mg Normal [facility] Comment on above: Performed By: #### P OCGLUC #### [facility] [address] [place] [address] Dr. Ashlie Hills RESPIRATORY PANEL PLUSon Adenovirus Not detected Normal NOT DETECTED [facility] Comment on above: Performed By: #### C VDAGS #### [facility] [address] [place] [address] Dr. Ashlie Hills B. Parapertusis Not detected Normal NOT DETECTED [facility] Comment on above: Performed By: #### C VDAGS #### [facility] [address] [place] [address] Dr. Ashlie Hills B. Pertussis Not detected Normal NOT DETECTED [facility] Comment on above: Performed By: #### C VDAGS #### [facility] [address] [place] [address] Dr. Ashlie Hills Chlamydia Pneumoniae Not detected Normal NOT DETECTED [facility] Comment on above: Performed By: #### C VDAGS #### [facility] [address] [place] [address] Dr. Ashlie Hills Coronavirus 229E Not detected Normal NOT DETECTED [facility] Comment on above: Performed By: #### C VDAGS #### [facility] [address] [place] [address] Dr. Ashlie Hills Coronavirus HKU1 Not detected Normal NOT DETECTED [facility] Comment on above: Performed By: #### C VDAGS #### [facility] [address] [place] [address] Dr. Ashlie Hills Coronavirus NL63 Not detected Normal NOT DETECTED [facility] Comment on above: Performed By: #### C VDAGS #### [facility] [address] [place] [address] Dr. Ashlie Hills Coronavirus OC43 Not detected Normal NOT DETECTED [facility] Comment on above: Performed By: #### C VDAGS #### [facility] [address] [place] [address] Dr. Ashlie Hills Influenza A H1 Not detected Normal NOT DETECTED [facility] Comment on above: Performed By: #### C VDAGS #### [facility] [address] [place] [address] Dr. Ashlie Hills Influenza A H1 2009 Not detected Normal NOT DETECTED [facility] Comment on above: Performed By: #### C VDAGS #### [facility] [address] [address] [address] Ashlie Hills Influenza A H3 Not detected Normal NOT DETECTED [facility] Comment on above: Performed By: #### C VDAGS #### [facility] [address] [address] [address] Ashlie Hills Influenza B Not detected Normal NOT DETECTED [facility] Comment on above: Performed By: #### C VDAGS #### [facility] [address] [place] [address] Dr. Ashlie Hills Metapneumovirus Not detected Normal NOT DETECTED [facility] Comment on above: Performed By: #### C VDAGS #### [facility] [address] [place] [address] Dr. Ashlie Hills Mycoplas. Pneumoniae Not detected Normal NOT DETECTED [facility] Comment on above: Performed By: #### C VDAGS #### [facility] [address] [place] [address] Dr. Ashlie Hills Parainfluenza 1 Not detected Normal NOT DETECTED [facility] Comment on above: Performed By: #### C VDAGS #### [facility] [address] [place] [address] Dr. Ashlie Hills Parainfluenza 2 Not detected Normal NOT DETECTED [facility] Comment on above: Performed By: #### C VDAGS #### [facility] [address] [place] [address] Dr. Ashlie Hills Parainfluenza 3 Detected Abnormal NOT DETECTED [facility] Comment on above: Performed By: #### C VDAGS #### [facility] [address] [address] [address] Ashlie Hills Parainfluenza 4 Not detected Normal NOT DETECTED [facility] Comment on above: Performed By: #### C VDAGS #### [facility] [address] [place] [address] Dr. Ashlie Hills Rhino/Enterovirus Not detected Normal NOT DETECTED [facility] Comment on above: Performed By: #### C VDAGS #### [facility] [address] [place] [address] Dr. Ashlie Hills RP2 Header 1 RESPIRATORY PANEL: VIRUSES Normal [facility] Comment on above: Performed By: #### C VDAGS #### [facility] [address] [place] [address] Dr. Ashlie Hills RP2 Header 2 RESPIRATORY PANEL: BACTERIA Normal [facility] Comment on above: Performed By: #### C VDAGS #### [facility] [address] [place] [address] Dr. Ashlie Hills RSV Not detected Normal NOT DETECTED [facility] Comment on above: Performed By: #### C VDAGS #### [facility] [address] [place] [address] Dr. Ashlie Hills SARS-CoV-2 (COVID-19) RNA MADDY+probe Ql (Unsp spec) Not detected Normal NOT DETECTED [facility] Comment on above: Performed By: #### C VDAGS #### [facility] [address] [place] [address] Dr. Ashlie Hills XR CHEST 1 Von [...] POWER Date: 2022-12-04 22:23 Normal [facility] BLOOD GASES BTYon 12-04-2022 02 MODE ROOM AIR Normal [facility] Comment on above: Performed By: #### C BC #### [facility] [address] [address] [address] Ashlie Hills ALLENS TEST Positive Normal [facility] Comment on above: Performed By: #### C BC #### [facility] [address] [place] [address] Dr. Ashlie Hills Base excess Calc (Bld) [Moles/Vol] 5.4 mmol/L Critically high -2.0-2.0 [facility] Comment on above: Performed By: #### C BC #### [facility] [address] [place] [address] Dr. Ashlie Hills BIPAP PRESSURE Normal [facility] Comment on above: Performed By: #### C BC #### [facility] [address] [place] [address] Dr. Ashlie Hills CPAP [facility] Comment on above: Performed By: #### C BC #### [facility] [address] [place] [address] Dr. Ashlie Hills FIO2 [facility] Comment on above: Performed By: #### C BC #### [facility] [address] [place] [address] Dr. Ashlie Hills HCO3 (Bld) [Moles/Vol] 30.8 mmol/L Critically high 22.0-26.0 [facility] Comment on above: Performed By: #### C BC #### [facility] [address] [place] [address] Dr. Ashlie Hills LPM Normal [facility] Comment on above: Performed By: #### C BC #### [facility] [address] [place] [address] Dr. Ashlie Hills MINUTE VOLUME Normal [facility] Comment on above: Performed By: #### C BC #### [facility] [address] [place] [address] Dr. Ashlie Hills Oxygen (Bld) [Partial pressure] 46.3 mm[Hg] Critically low 80.0-100.0 [facility] Comment on above: Performed By: #### C BC #### [facility] [address] [place] [address] Dr. Ashlie Hills Oxygen saturation in Blood 83.9 % Critically low 95.0-100.0 [facility] Comment on above: Performed By: #### C BC #### [facility] [address] [place] [address] Dr. Ashlie Hills PCO2 54.2 mmHg Critically high 35.0-45.0 [facility] Comment on above: Performed By: #### C BC #### [facility] [address] [place] [address] Dr. Ashlie Hills PEEP [facility] Comment on above: Performed By: #### C BC #### [facility] [address] [place] [address] Dr. Ashlie Hills pH (Bld) 7.363 [pH] Normal 7.350-7.450 [facility] Comment on above: Performed By: #### C BC #### [facility] [address] [place] [address] Dr. Ashlie Hills [facility] Comment on above: Performed By: #### C BC #### [facility] [address] [place] [address] Dr. Ashlie Hills PS [facility] Comment on above: Performed By: #### C BC #### [facility] [address] [place] [address] Dr. Ashlie Hills PUNCTURE SITE LR [facility] Comment on above: Performed By: #### C BC #### [facility] [address] [place] [address] Dr. Ashlie Hills RATE [facility] Comment on above: Performed By: #### C BC #### [facility] [address] [place] [address] Dr. Ashlie Hills VENT MODE [facility] Comment on above: Performed By: #### C BC #### [facility] [address] [place] [address] Dr. Ashlie Hills [facility] Comment on above: Performed By: #### C BC #### [facility] [address] [place] [address] Dr. Ashlie Hills BNPon 12-04-2022 Natriuretic peptide B (Bld) [Mass/Vol] 76.0 pg/mL Normal <=900.0 [facility] Comment on above: Performed By: #### P OCGLUC #### [facility] [address] [place] [address] Dr. Ashlie Hills CBC AUTO DIFFon 12-04-2022 BASO # 0.1 103/ul Normal 0.0-0.1 [facility] Comment on above: Performed By: #### C BC #### [facility] [address] [place] [address] Dr. Ashlie Hills Basophils/100 WBC (Bld) 0.6 % Normal 0.2-2.0 [facility] Comment on above: Performed By: #### C BC #### [facility] [address] [place] [address] Dr. Ashlie Hills EO # 0.2 103/ul Normal 0.0-0.7 [facility] Comment on above: Performed By: #### C BC #### [facility] [address] [place] [address] Dr. Ashlie Hills Eosinophils/100 WBC (Bld) 1.9 % Normal 0.9-7.0 [facility] Comment on above: Performed By: #### C BC #### [facility] [address] [place] [address] Dr. Ashlie Hills Erythrocyte distribution width (RBC) [Ratio] 15.0 % Normal 11.0-15.0 [facility] Comment on above: Performed By: #### C BC #### [facility] [address] [place] [address] Dr. Ashlie Hills Hematocrit (Bld) [Volume fraction] 49.1 % Critically high 36.0-48.0 [facility] Comment on above: Performed By: #### C BC #### [facility] [address] [place] [address] Dr. Ashlie Hills Hemoglobin (Bld) [Mass/Vol] 15.6 g/dL Normal 12.0-16.0 [facility] Comment on above: Performed By: #### C BC #### [facility] [address] [place] [address] Dr. Ashlie Hills IG # 0.02 10e3/ul Normal 0.00-0.03 [facility] Comment on above: Performed By: #### C BC #### [facility] [address] [place] [address] Dr. Ashlie Hills IG % 0.2 % Normal 0.0-0.5 [facility] Comment on above: Performed By: #### C BC #### [facility] [address] [place] [address] Dr. Ashlie Hills LYMPH # 2.8 103/ul Normal 1.2-3.8 [facility] Comment on above: Performed By: #### C BC #### [facility] [address] [place] [address] Dr. Ashlie Hills Lymphocytes/100 WBC (Bld) 29.9 % Normal 20.5-60.0 [facility] Comment on above: Performed By: #### C BC #### [facility] [address] [place] [address] Dr. Ashlie Hills MANUAL DIFF REQ NO Normal [facility] Comment on above: Performed By: #### C BC #### [facility] [address] [place] [address] Dr. Ashlie Hills MCH (RBC) [Entitic mass] 28.5 pg Normal 26.7-34.0 [facility] Comment on above: Performed By: #### C BC #### [facility] [address] [place] [address] Dr. Ashlie Hills MCHC (RBC) [Mass/Vol] 31.8 g/dL Normal 29.9-35.2 [facility] Comment on above: Performed By: #### C BC #### [facility] [address] [place] [address] Dr. Ashlie Hills MCV (RBC) [Entitic vol] 89.8 fL Normal 81.0-99.0 [facility] Comment on above: Performed By: #### C BC #### [facility] [address] [place], [place] [id number] Dr. Ashlie Hills MONO # 1.0 103/ul Critically high 0.3-0.8 [facility] Comment on above: Performed By: #### C BC #### [facility] [address] [place] [address] Dr. Ashlie Hills Monocytes/100 WBC (Bld) 10.6 % Normal 1.7-12.0 [facility] Comment on above: Performed By: #### C BC #### [facility] [address] [place] [address] Dr. Ashlie Hills NEUT # 5.3 103/ul Normal 1.4-6.5 [facility] Comment on above: Performed By: #### C BC #### [facility] [address] [place] [address] Dr. Ashlie Hills Neutrophils/100 WBC (Bld) 56.8 % Normal 43.0-75.0 [facility] Comment on above: Performed By: #### C BC #### [facility] [address] [place] [address] Dr. Ashlie Hills Platelet mean volume (Bld) [Entitic vol] 12.5 fL Normal 9.5-13.5 [facility] Comment on above: Performed By: #### C BC #### [facility] [address] [place] [address] Dr. Ashlie Hills PLT 109 103/ul Critically low 150-450 [facility] Comment on above: Performed By: #### C BC #### [facility] [address] [place] [address] Dr. Ashlie Hills RBC 5.47 106/ul Critically high 4.20-5.40 [facility] Comment on above: Performed By: #### C BC #### [facility] [address] [place] [address] Dr. Ashlie Hills WBC 9.4 103/ul Normal 4.0-11.0 [facility] Comment on above: Performed By: #### C BC #### [facility] [address] [place] [address] Dr. Ashlie Hills PROF 14(COMP METB)on 023 Albumin [Mass/Vol] 2.9 g/dL Critically low 3.4-5.0 [facility] Comment on above: Performed By: #### C BC #### [facility] [address] [place] [address] Dr. Ashlie Hills Albumin/Globulin [Mass ratio] 0.6 {ratio} Normal [facility] Comment on above: Performed By: #### C BC #### [facility] [address] [place] [address] Dr. Ashile Hills ALP [Catalytic activity/Vol] 64 U/L Normal 46-116 [facility] Comment on above: Performed By: #### C BC #### [facility] [address] [place] [address] Dr. Ashlie Hills ALT [Catalytic activity/Vol] 16 U/L Normal 14-59 [facility] Comment on above: Performed By: #### C BC #### [facility] [address] [place] [address] Dr. Ashlie Hills Anion gap [Moles/Vol] 9.6 mmol/L Normal [facility] Comment on above: Performed By: #### C BC #### [facility] [address] [place] [address] Dr. Ashlie Hills AST [Catalytic activity/Vol] 16 U/L Normal 15-37 [facility] Comment on above: Performed By: #### C BC #### [facility] [address] [place] [address] Dr. Ashlie Hills Bilirubin [Mass/Vol] 0.5 mg/dL Normal 0.2-1.0 [facility] Comment on above: Performed By: #### C BC #### [facility] [address] [place] [address] Dr. Ashlie Hills Calcium [Mass/Vol] 8.7 mg/dL Normal 8.5-10.1 [facility] Comment on above: Performed By: #### C BC #### [facility] [address] [place] [address] Dr. Ashlie Hills Chloride [Moles/Vol] 103 mmol/L Normal 98-107 [facility] Comment on above: Performed By: #### C BC #### [facility] [address] [address] [address] Ashlie Hills CO2 [Moles/Vol] 30.7 mmol/L Normal 21.0-32.0 [facility] Comment on above: Performed By: #### C BC #### [facility] [address] [address] [address] Ashlie Hills Creatinine [Mass/Vol] 0.96 mg/dL Normal 0.55-1.02 [facility] Comment on above: Performed By: #### C BC #### [facility] [address] [place] [address] Dr. Ashlie Hills EGFR-AF GABONESE >60 Normal >=60 [facility] Comment on above: Performed By: #### C BC #### [facility] [address] [place] [address] Dr. Ashlie Hills EGFR-NON AF GABONESE >60 Normal >=60 [facility] Comment on above: Performed By: #### C BC #### [facility] [address] [address] [address] Ashlie Hills Globulin (S) [Mass/Vol] 4.7 g/dL Normal [facility] Comment on above: Performed By: #### C BC #### [facility] [address] [place] [address] Dr. Ashlie Hills Glucose [Mass/Vol] 170 mg/dL Critically high 74-106 [facility] Comment on above: Performed By: #### C BC #### [facility] [address] [place] [address] Dr. Ashlie Hills Potassium [Moles/Vol] 4.3 mmol/L Normal 3.5-5.1 [facility] Comment on above: Performed By: #### C BC #### [facility] [address] [place] [address] Dr. Ashlie Hills Protein [Mass/Vol] 7.6 g/dL Normal 6.4-8.2 [facility] Comment on above: Performed By: #### C BC #### [facility] [address] [address] [address] Ashlie Hills Sodium [Moles/Vol] 139 mmol/L Normal 136-145 [facility] Comment on above: Performed By: #### C BC #### [facility] [address] [place] [address] Dr. Ashlie Hills Urea nitrogen [Mass/Vol] 16.0 mg/dL Normal 7.0-18.0 [facility] Comment on above: Performed By: #### C BC #### [facility] [address] [place] [address] Dr. Ashlie Hills Urea nitrogen/Creatinine [Mass ratio] 16.7 mg/mg Normal [facility] Comment on above: Performed By: #### C BC #### [facility] [address] [place] [address] Dr. Ashlie Hills SYMPTOMATIC COVID-19 ANTIGEN on 12-04-2022 EUA Statement SEE BELOW Normal [facility] Comment on above: Result Comment: [...] sooner. Performed By: #### C VDAGS #### [facility] [address] [place] [address] Dr. Ashlie Hills SARS-CoV-2 (COVID-19) RNA MADDY+probe Ql (Unsp spec) Negative Normal NEGATIVE [facility] Comment on above: Performed By: #### C VDAGS #### [facility] [address] [place] [address] Dr. Ashlie Hills TROPONIN, HIGH SENSITIVITYon 12-04-2022 HSTROP 8.9 pg/mL Normal 4.0-51.3 [facility] Comment on above: Result Comment: CUT- OFF POINTS HAVE BEEN ESTABLISHED BASED ON THE FOURTH UNIVERSAL DEFINITIONS OF MYOCARDIAL INFARCTION. THE UPPER REFERENCE LIMIT (URL) OF TROPONIN, DEFINED THE 99TH PERCENTILE OF cTnI DISTRIBUTION IN A REFERENCE POPULATION, HAS BEEN CONFIRMED THE DECISION THRESHOLD FOR [place] DIAGNOSIS. Performed By: #### P OCGLUC #### [facility] [address] [place] [address] Dr. Ashlie Hills MICROALBUMIN, RAND URon - mALB 35.8 mg/dL Critically high <=30.0 [facility] Comment on above: Performed By: #### C VDAGS #### [facility] [address] [place] [address] Dr. Ashlie Hills UA RANDOM W/MICROSCOPICon BACTERIA NONE SEEN Normal NONE SEEN [facility] Comment on above: Performed By: #### C VDAGS #### [facility] [address] [place] [address] Dr. Ashlie Hills Bilirubin Ql (U) Negative Normal NEGATIVE [facility] Comment on above: Performed By: #### C VDAGS #### [facility] [address] [place] [address] Dr. Ashlie Hills CAST SEEN Abnormal NONE [facility] Comment on above: Performed By: #### C VDAGS #### [facility] [address] [place] [address] Dr. Ashlie Hills Clarity (U) CLEAR Normal CLEAR [facility] Comment on above: Performed By: #### C VDAGS #### [facility] [address] [place] [address] Dr. Ashlie Hills Color (U) YELLOW Normal YELLOW [facility] Comment on above: Performed By: #### C VDAGS #### [facility] [address] [place] [address] Dr. Ashlie Hills Crystals LM Nom (Urine sed) NONE SEEN Normal NONE SEEN [facility] Comment on above: Performed By: #### C VDAGS #### [facility] [address] [address] [address] Ashlie Hills Epithelial cells LM Ql (Urine sed) MODERATE Abnormal NONE SEEN /RARE [facility] Comment on above: Performed By: #### C VDAGS #### [facility] [address] [place] [address] Dr. Ashlie Hills Glucose Ql (U) Negative Normal NEGATIVE [facility] Comment on above: Performed By: #### C VDAGS #### [facility] [address] [place] [address] Dr. Ashlie Hills Hemoglobin Ql (U) TRACE-INTACT Abnormal NEGATIVE [facility] Comment on above: Performed By: #### C VDAGS #### [facility] [address] [place] [address] Dr. Ashlie Hills Ketones Ql (U) Negative Normal NEGATIVE [facility] Comment on above: Performed By: #### C VDAGS #### [facility] [address] [place] [address] Dr. Ashlie Hills LEUKOCYTES Negative Normal NEGATIVE [facility] Comment on above: Performed By: #### C VDAGS #### [facility] [address] [place] [address] Dr. Ashlie Hills MUCOUS NONE SEEN Normal NONE SEEN [facility] Comment on above: Performed By: #### C VDAGS #### [facility] [facility] [address] [place] [address] Dr. Ashlie Hills Nitrite Ql (U) Negative Normal NEGATIVE [facility] Comment on above: Performed By: #### C VDAGS #### [facility] [address] [place] [address] Dr. Ashlie Hills pH (U) 5.0 [pH] Normal 5-9 [facility] Comment on above: Performed By: #### C VDAGS #### [facility] [address] [place] [address] Dr. Ashlie Hills RBC 0-2 Normal 0-2 [facility] Comment on above: Performed By: #### C VDAGS #### [facility] [address] [place] [address] Dr. Ashlie Hills SPEC GRAVITY 1.030 Abnormal 1.005-<=1.025 [facility] Comment on above: Performed By: #### C VDAGS #### [facility] [address] [place] [address] Dr. Ashlie Hills UA PROTEIN 100 mg/dl Abnormal NEGATIVE/ TRACE [facility] Comment on above: Performed By: #### C VDAGS #### [facility] [address] [place] [address] Dr. Ashlie Hills Urobilinogen Qn (U) 0.2 {Little'U}/dL Normal 0.2 - 1. 0 [facility] Comment on above: Performed By: #### C VDAGS #### [facility] [address] [place] [address] Dr. Ashlie Hills WBC NONE SEEN Normal NONE SEEN [facility] Comment on above: Performed By: #### C VDAGS #### [facility] [address] [place] [address] Dr. Ashlie Hills CBC AUTO DIFFon 11-22-2022 BASO # 0.0 103/ul Normal 0.0-0.1 [facility] Comment on above: Performed By: #### C BC #### [facility] [address] [place] [address] Dr. Ashlie Hills Basophils/100 WBC (Bld) 0.3 % Normal 0.2-2.0 [facility] Comment on above: Performed By: #### C BC #### [facility] [address] [place] [address] Dr. Ashlie Hills EO # 0.4 103/ul Normal 0.0-0.7 [facility] Comment on above: Performed By: #### C BC #### [facility] [address] [place] [address] Dr. Ashlie Hills Eosinophils/100 WBC (Bld) 3.0 % Normal 0.9-7.0 [facility] Comment on above: Performed By: #### C BC #### [facility] [address] [place] [address] Dr. Ashlie Hills Erythrocyte distribution width (RBC) [Ratio] 15.3 % Critically high 11.0-15.0 [facility] Comment on above: Performed By: #### C BC #### [facility] [address] [place] [address] Dr. Ashlie Hills Hematocrit (Bld) [Volume fraction] 52.4 % Critically high 36.0-48.0 [facility] Comment on above: Performed By: #### C BC #### [facility] [address] [place] [address] Dr. Ashlie Hills Hemoglobin (Bld) [Mass/Vol] 16.8 g/dL Critically high 12.0-16.0 [facility] Comment on above: Performed By: #### C BC #### [facility] [address] [place] [address] Dr. Ashlie Hills IG # 0.04 10e3/ul Critically high 0.00-0.03 [facility] Comment on above: Performed By: #### C BC #### [facility] [address] [place] [address] Dr. Ashlie Hills IG % 0.3 % Normal 0.0-0.5 [facility] Comment on above: Performed By: #### C BC #### [facility] [address] [place] [address] Dr. Ashlie Hills LYMPH # 4.5 103/ul Critically high 1.2-3.8 [facility] Comment on above: Performed By: #### C BC #### [facility] [address] [place] [address] Dr. Ashlie Hills Lymphocytes/100 WBC (Bld) 33.2 % Normal 20.5-60.0 [facility] Comment on above: Performed By: #### C BC #### [facility] [address] [place] [address] Dr. Ashlie Hills MANUAL DIFF REQ NO Normal [facility] Comment on above: Performed By: #### C BC #### [facility] [address] [address] [address] Ashlie Hills MCH (RBC) [Entitic mass] 28.0 pg Normal 26.7-34.0 [facility] Comment on above: Performed By: #### C BC #### [facility] [address] [place] [address] Dr. Ashlie Hills MCHC (RBC) [Mass/Vol] 32.1 g/dL Normal 29.9-35.2 [facility] Comment on above: Performed By: #### C BC #### [facility] [address] [place] [address] Dr. Ashlie Hills MCV (RBC) [Entitic vol] 87.3 fL Normal 81.0-99.0 [facility] Comment on above: Performed By: #### C BC #### [facility] [address] [place] [address] Dr. Ashlie Hills MONO # 0.8 103/ul Normal 0.3-0.8 [facility] Comment on above: Performed By: #### C BC #### [facility] [address] [place] [address] Dr. Ashlie Hills Monocytes/100 WBC (Bld) 5.7 % Normal 1.7-12.0 [facility] Comment on above: Performed By: #### C BC #### [facility] [address] [place] [address] Dr. Ashlie Hills NEUT # 7.8 103/ul Critically high 1.4-6.5 [facility] Comment on above: Performed By: #### C BC #### [facility] [address] [place] [address] Dr. Ashlie Hills Neutrophils/100 WBC (Bld) 57.5 % Normal 43.0-75.0 [facility] Comment on above: Performed By: #### C BC #### [facility] [address] [place] [address] Dr. Ashlie Hills Platelet mean volume (Bld) [Entitic vol] 12.0 fL Normal 9.5-13.5 [facility] Comment on above: Performed By: #### C BC #### [facility] [address] [address] [address] Ashlie Hills PLT 152 103/ul Normal 150-450 [facility] Comment on above: Performed By: #### C BC #### [facility] [address] [address] [address] Ashlie Hills RBC 6.00 106/ul Critically high 4.20-5.40 [facility] Comment on above: Performed By: #### C BC #### [facility] [address] [address] [address] Ashlie Hills WBC 13.6 103/ul Critically high 4.0-11.0 [facility] Comment on above: Performed By: #### C BC #### [facility] [address] [place] [address] Dr. Ashlie Hills LIPID PROFILEon 11-22-2022 CHOL-HDL RATIO NORM SEE BELOW Normal [facility] Comment on above: Result Comment: 3.3 - 4.4 LOW RISK 4.4 - 7.1 AVERAGE RISK 7.1 - 11.0 MODERATE RISK >11.0 HIGH RISK Performed By: #### C BC #### [facility] [address] [address] [address] Ashlie Hills Cholesterol [Mass/Vol] 139 mg/dL Normal <=200 [facility] Comment on above: Performed By: #### C BC #### [facility] [address] [place] [address] Dr. Ashlie Hills Cholesterol in HDL [Mass/Vol] 35 mg/dL Critically low 40-60 [facility] Comment on above: Performed By: #### C BC #### [facility] [address] [address] [address] Ashlie Hills Cholesterol in LDL [Mass/Vol] 67.4 mg/dL Normal [facility] Comment on above: Performed By: #### C BC #### [facility] [address] [place] [address] Dr. Ashlie Hills Cholesterol.total/Ch olesterol in HDL [Mass ratio] 4.0 {ratio} Normal [facility] Comment on above: Performed By: #### C BC #### [facility] [address] [address] [address] Ashlie Hills HDL NORMAL > or = 60 mg/dl - LOW CARDIOVASCULAR RISK <40 mg/dl - HIGH CARDIOVASCULAR RISK Normal [facility] Comment on above: Performed By: #### C BC #### [facility] [address] [address] [address] Ashlie Hills LDL CALC NORMAL SEE BELOW Normal [facility] Comment on above: Result Comment: <100 mg/dl OPTIMAL 100 - 129 mg/dl NEAR OR ABOVE OPTIMAL 130 - 159 mg/dl BORDERLINE HIGH 160 - 189 mg/dl HIGH >190 mg/dl VERY HIGH Performed By: #### C BC #### [facility] [address] [address] [address] Ashlie Hills Triglyceride [Mass/Vol] 183 mg/dL Critically high <=150 [facility] Comment on above: Performed By: #### C BC #### [facility] [address] [address] [address] Ashlie Hills VLDL CALC 36.6 mg/dL Normal [facility] Comment on above: Performed By: #### C BC #### [facility] [address] [address] [address] Ashlie Hills MG MAMM SCREEN 3D ALEX CADon 11-22-2022 MG MAMM SCREEN 3D ALEX CAD Patient: MITZI MACIAS Exam Date: 11/22/2022 : 1970 Gender:F Ordering : [facility] Admission #: [id number] Family : Order #: [id number] CLICK HERE TO VIEW EXAM RADIOLOGY REPORT [...] unknown cancer at age 75. LOCATION: [facility] BREAST COMPOSITION: Almost entirely fatty. [...] M.D. on 11/22/2022 at 12:09 Normal [facility] PROF 14(COMP METB)on 023 Albumin [Mass/Vol] 3.0 g/dL Critically low 3.4-5.0 [facility] Comment on above: Performed By: #### C BC #### [facility] [address] [place] [address] Dr. Ashlie Hills Albumin/Globulin [Mass ratio] 0.6 {ratio} Normal [facility] Comment on above: Performed By: #### C BC #### [facility] [address] [address] [address] Ashlie Hills ALP [Catalytic activity/Vol] 68 U/L Normal 46-116 [facility] Comment on above: Performed By: #### C BC #### [facility] [address] [address] [address] Ashlie Hills ALT [Catalytic activity/Vol] 14 U/L Normal 14-59 [facility] Comment on above: Performed By: #### C BC #### [facility] [address] [address] [address] Ashlie Hills Anion gap [Moles/Vol] 12.1 mmol/L Normal [facility] Comment on above: Performed By: #### C BC #### [facility] [address] [address] [address] Ashlie Hills AST [Catalytic activity/Vol] 9 U/L Critically low 15-37 [facility] Comment on above: Performed By: #### C BC #### [facility] [address] [address] [address] Ashlie Hills Bilirubin [Mass/Vol] 0.4 mg/dL Normal 0.2-1.0 [facility] Comment on above: Performed By: #### C BC #### [facility] [address] [address] [address] Ashlie Hills Calcium [Mass/Vol] 9.0 mg/dL Normal 8.5-10.1 [facility] Comment on above: Performed By: #### C BC #### [facility] [address] [address] [address] Ashlie Hills Chloride [Moles/Vol] 105 mmol/L Normal 98-107 [facility] Comment on above: Performed By: #### C BC #### [facility] [address] [address] [address] Ashlie Hills CO2 [Moles/Vol] 30.7 mmol/L Normal 21.0-32.0 [facility] Comment on above: Performed By: #### C BC #### [facility] [address] [address] [address] Ashlie Hills Creatinine [Mass/Vol] 0.77 mg/dL Normal 0.55-1.02 [facility] Comment on above: Performed By: #### C BC #### [facility] [address] [address] [address] Ashlie Hills EGFR-AF GABONESE >60 Normal >=60 [facility] Comment on above: Performed By: #### C BC #### [facility] [address] [address] [address] Ashlie Hills EGFR-NON AF GABONESE >60 Normal >=60 [facility] Comment on above: Performed By: #### C BC #### [facility] [address] [address] [address] Ashlie Hills Globulin (S) [Mass/Vol] 4.8 g/dL Normal [facility] Comment on above: Performed By: #### C BC #### [facility] [address] [address] [address] Ashlie Hills Glucose [Mass/Vol] 162 mg/dL Critically high 74-106 [facility] Comment on above: Performed By: #### C BC #### [facility] [address] [address] [address] Ashlie Hills Potassium [Moles/Vol] 3.8 mmol/L Normal 3.5-5.1 [facility] Comment on above: Performed By: #### C BC #### [facility] [address] [address] [address] Ashlie Hills Protein [Mass/Vol] 7.8 g/dL Normal 6.4-8.2 [facility] Comment on above: Performed By: #### C BC #### [facility] [address] [place] [address] Dr. Ashlie Hills Sodium [Moles/Vol] 144 mmol/L Normal 136-145 [facility] Comment on above: Performed By: #### C BC #### [facility] [address] [place] [address] Dr. Ashlie Hills Urea nitrogen [Mass/Vol] 24.0 mg/dL Critically high 7.0-18.0 [facility] Comment on above: Performed By: #### C BC #### [facility] [address] [place] [address] Dr. Ashlie Hills Urea nitrogen/Creatinine [Mass ratio] 31.2 mg/mg Normal [facility] Comment on above: Performed By: #### C BC #### [facility] [address] [place] [address] Dr. Ashlie Hills CBC AUTO DIFFon 10-05-2022 BASO # 0.1 103/ul Normal 0.0-0.1 [facility] Comment on above: Performed By: #### C BC #### [facility] [address] [place] [address] Dr. Ashlie Hills Basophils/100 WBC (Bld) 0.6 % Normal 0.2-2.0 [facility] Comment on above: Performed By: #### C BC #### [facility] [address] [place] [address] Dr. Ashlie Hills EO # 0.3 103/ul Normal 0.0-0.7 [facility] Comment on above: Performed By: #### C BC #### [facility] [address] [place] [address] Dr. Ashlie Hills Eosinophils/100 WBC (Bld) 2.1 % Normal 0.9-7.0 [facility] Comment on above: Performed By: #### C BC #### [facility] [address] [place] [address] Dr. Ashlie Hills Erythrocyte distribution width (RBC) [Ratio] 15.9 % Critically high 11.0-15.0 [facility] Comment on above: Performed By: #### C BC #### [facility] [address] [place] [address] Dr. Ashlie Hills Hematocrit (Bld) [Volume fraction] 51.8 % Critically high 36.0-48.0 [facility] Comment on above: Performed By: #### C BC #### [facility] [address] [place] [address] Dr. Ashlie Hills Hemoglobin (Bld) [Mass/Vol] 16.6 g/dL Critically high 12.0-16.0 [facility] Comment on above: Performed By: #### C BC #### [facility] [address] [place] [address] Dr. Ashlie Hills IG # 0.03 10e3/ul Normal 0.00-0.03 [facility] Comment on above: Performed By: #### C BC #### [facility] [address] [place] [address] Dr. Ashlie Hills IG % 0.2 % Normal 0.0-0.5 [facility] Comment on above: Performed By: #### C BC #### [facility] [address] [place] [address] Dr. Ashlie Hills LYMPH # 3.9 103/ul Critically high 1.2-3.8 [facility] Comment on above: Performed By: #### C BC #### [facility] [address] [place] [address] Dr. Ashlie Hills Lymphocytes/100 WBC (Bld) 31.7 % Normal 20.5-60.0 [facility] Comment on above: Performed By: #### C BC #### [facility] [address] [place] [address] Dr. Ashlie Hills MANUAL DIFF REQ NO Normal [facility] Comment on above: Performed By: #### C BC #### [facility] [address] [place] [address] Dr. Ashlie Hills MCH (RBC) [Entitic mass] 27.9 pg Normal 26.7-34.0 [facility] Comment on above: Performed By: #### C BC #### [facility] [address] [place] [address] Dr. Ashlie Hills MCHC (RBC) [Mass/Vol] 32.0 g/dL Normal 29.9-35.2 [facility] Comment on above: Performed By: #### C BC #### [facility] [address] [place] [address] Dr. Ashlie Hills MCV (RBC) [Entitic vol] 87.1 fL Normal 81.0-99.0 [facility] Comment on above: Performed By: #### C BC #### [facility] [address] [place] [address] Dr. Ashlie Hills MONO # 0.7 103/ul Normal 0.3-0.8 [facility] Comment on above: Performed By: #### C BC #### [facility] [address] [place] [address] Dr. Ashlie Hills Monocytes/100 WBC (Bld) 5.8 % Normal 1.7-12.0 [facility] Comment on above: Performed By: #### C BC #### [facility] [address] [place] [address] Dr. Ashlie Hills NEUT # 7.3 103/ul Critically high 1.4-6.5 [facility] Comment on above: Performed By: #### C BC #### [facility] [address] [place] [address] Dr. Ashlie Hills Neutrophils/100 WBC (Bld) 59.6 % Normal 43.0-75.0 [facility] Comment on above: Performed By: #### C BC #### [facility] [address] [place] [address] Dr. Ashlie Hills Platelet mean volume (Bld) [Entitic vol] 11.7 fL Normal 9.5-13.5 [facility] Comment on above: Performed By: #### C BC #### [facility] [address] [place] [address] Dr. Ashlie Hills PLT 117 103/ul Critically low 150-450 [facility] Comment on above: Performed By: #### C BC #### [facility] [address] [place] [address] Dr. Ashlie Hills RBC 5.95 106/ul Critically high 4.20-5.40 [facility] Comment on above: Performed By: #### C BC #### [facility] [address] [place] [address] Dr. Ashlie Hills WBC 12.3 103/ul Critically high 4.0-11.0 [facility] Comment on above: Performed By: #### C BC #### [facility] [address] [place] [address] ABD/PELV W CONon [...] RICCO PICKARD Date: 2022-10-05 13:13 Normal [facility] ER URINE PROFILEon 3 Bilirubin Ql (U) Negative Normal NEGATIVE [facility] Comment on above: Performed By: #### P OCGLUC #### [facility] [address] [address] [address] Ashlie Hills Clarity (U) CLEAR Normal CLEAR [facility] Comment on above: Performed By: #### P OCGLUC #### [facility] [address] [place] [address] Dr. Ashlie Hills Color (U) YELLOW Normal YELLOW [facility] Comment on above: Performed By: #### P OCGLUC #### [facility] [address] [address] [address] Ashlie Hills ERUESD A micrscopic examination will be performed if indicated. Normal [facility] Comment on above: Performed By: #### P OCGLUC #### [facility] [address] [address] [address] Ashlie Hills Glucose Ql (U) Negative Normal NEGATIVE [facility] Comment on above: Performed By: #### P OCGLUC #### [facility] [address] [address] [address] Ashlie Hills Hemoglobin Ql (U) Negative Normal NEGATIVE [facility] Comment on above: Performed By: #### P OCGLUC #### [facility] [address] [address] [address] Ashlie Hills Ketones Ql (U) Negative Normal NEGATIVE [facility] Comment on above: Performed By: #### P OCGLUC #### [facility] [address] [address] [address] Ashlie Hills LEUKOCYTES Negative Normal NEGATIVE [facility] Comment on above: Performed By: #### P OCGLUC #### [facility] [address] [place] [address] Dr. Ashlie Hills Nitrite Ql (U) Negative Normal NEGATIVE [facility] Comment on above: Performed By: #### P OCGLUC #### [facility] [address] [place] [address] Dr. Ashlie Hills pH (U) 6.0 [pH] Normal 5-9 [facility] Comment on above: Performed By: #### P OCGLUC #### [facility] [address] [place] [address] Dr. Ashlie Hills Protein (U) [Mass/Vol] 100 mg/dL Abnormal NEGATIVE/ TRACE [facility] Comment on above: Performed By: #### P OCGLUC #### [facility] [address] [place] [address] Dr. Ashlie Hills SPEC GRAVITY 1.010 Normal 1.005-<=1.025 [facility] Comment on above: Performed By: #### P OCGLUC #### [facility] [address] [place] [address] Dr. Ashlie Hills UR MICRO IND INDICATED Normal [facility] Comment on above: Performed By: #### P OCGLUC #### [facility] [address] [place] [address] Dr. Ashlie Hills Urobilinogen Qn (U) 1.0 {Little'U}/dL Normal 0.2 - 1. 0 [facility] Comment on above: Performed By: #### P OCGLUC #### [facility] [address] [place] [address] Dr. Ashlie Hills LIPASEon 10-05-2022 Lipase [Catalytic activity/Vol] 1771.0 U/L Critically high 73.0-393.0 [facility] Comment on above: Performed By: #### C BC #### [facility] [address] [place] [address] Dr. Ashlie Hills PREG HCG QUALon 10-05-2022 , QUAL Negative Normal NEGATIVE [facility] Comment on above: Performed By: #### P OCGLUC #### [facility] [address] [address] [address] Ashlie Hills PROF 14(COMP METB)on 023 Albumin [Mass/Vol] 3.2 g/dL Critically low 3.4-5.0 [facility] Comment on above: Performed By: #### C BC #### [facility] [address] [place] [address] Dr. Ashlie Hills Albumin/Globulin [Mass ratio] 0.7 {ratio} Normal [facility] Comment on above: Performed By: #### C BC #### [facility] [address] [place] [address] Dr. Ashlie Hills ALP [Catalytic activity/Vol] 70 U/L Normal 46-116 [facility] Comment on above: Performed By: #### C BC #### [facility] [address] [place] [address] Dr. Ashlie Hills ALT [Catalytic activity/Vol] 11 U/L Critically low 14-59 [facility] Comment on above: Performed By: #### C BC #### [facility] [address] [place] [address] Dr. Ashlie Hills Anion gap [Moles/Vol] 10.3 mmol/L Normal [facility] Comment on above: Performed By: #### C BC #### [facility] [address] [place] [address] Dr. Ashlie Hills AST [Catalytic activity/Vol] 11 U/L Critically low 15-37 [facility] Comment on above: Performed By: #### C BC #### [facility] [address] [place] [address] Dr. Ashlie Hills Bilirubin [Mass/Vol] 0.9 mg/dL Normal 0.2-1.0 [facility] Comment on above: Performed By: #### C BC #### [facility] [address] [place] [address] Dr. Ashlie Hills Calcium [Mass/Vol] 9.3 mg/dL Normal 8.5-10.1 [facility] Comment on above: Performed By: #### C BC #### [facility] [address] [place] [address] Dr. Ashlie Hills Chloride [Moles/Vol] 105 mmol/L Normal 98-107 [facility] Comment on above: Performed By: #### C BC #### [facility] [address] [place] [address] Dr. Ashlie Hills CO2 [Moles/Vol] 30.6 mmol/L Normal 21.0-32.0 [facility] Comment on above: Performed By: #### C BC #### [facility] [address] [place] [address] Dr. Ashlie Hills Creatinine [Mass/Vol] 0.62 mg/dL Normal 0.55-1.02 [facility] Comment on above: Performed By: #### C BC #### [facility] [address] [place] [address] Dr. Ashlie Hills EGFR-AF GABONESE >60 Normal >=60 [facility] Comment on above: Performed By: #### C BC #### [facility] [address] [place] [address] Dr. Ashlie Hills EGFR-NON AF GABONESE >60 Normal >=60 [facility] Comment on above: Performed By: #### C BC #### [facility] [address] [place] [address] Dr. Ashlie Hills Globulin (S) [Mass/Vol] 4.6 g/dL Normal [facility] Comment on above: Performed By: #### C BC #### [facility] [address] [place] [address] Dr. Ashlie Hills Glucose [Mass/Vol] 85 mg/dL Normal 74-106 [facility] Comment on above: Performed By: #### C BC #### [facility] [address] [place] [address] Dr. Ashlie Hills Potassium [Moles/Vol] 3.9 mmol/L Normal 3.5-5.1 [facility] Comment on above: Performed By: #### C BC #### [facility] [address] [place] [address] Dr. Ashlie Hills Protein [Mass/Vol] 7.8 g/dL Normal 6.4-8.2 [facility] Comment on above: Performed By: #### C BC #### [facility] [address] [place] [address] Dr. Ashlie Hills Sodium [Moles/Vol] 142 mmol/L Normal 136-145 [facility] Comment on above: Performed By: #### C BC #### [facility] [address] [place] [address] Dr. Ashlie Hills Urea nitrogen [Mass/Vol] 12.0 mg/dL Normal 7.0-18.0 [facility] Comment on above: Performed By: #### C BC #### [facility] [address] [place] [address] Dr. Ashlie Hills Urea nitrogen/Creatinine [Mass ratio] 19.4 mg/mg Normal [facility] Comment on above: Performed By: #### C BC #### [facility] [address] [place] [address] Dr. Ashlie Hills URINE MICROSCOPIC ONLYon BACTERIA TRACE Abnormal NONE SEEN [facility] Comment on above: Performed By: #### P OCGLUC #### [facility] [address] [place] [address] Dr. Ashlie Hills Bacteria identified Cx Nom (U) NOT INDICATED Normal [facility] Comment on above: Performed By: #### P OCGLUC #### [facility] [address] [place] [address] Dr. Ashlie Hills CAST NONE SEEN Normal NONE SEEN [facility] Comment on above: Performed By: #### P OCGLUC #### [facility] [address] [place] [address] Dr. Ashlie Hills Crystals LM Nom (Urine sed) NONE SEEN Normal NONE SEEN [facility] Comment on above: Performed By: #### P OCGLUC #### [facility] [address] [place] [address] Dr. Ashlie Hills Epithelial cells LM Ql (Urine sed) MODERATE Abnormal NONE SEEN /RARE [facility] Comment on above: Performed By: #### P OCGLUC #### [facility] [address] [place] [address] Dr. Ashlie Hills MUCOUS NONE SEEN Normal NONE SEEN [facility] Comment on above: Performed By: #### P OCGLUC #### [facility] [address] [place] [address] Dr. Ashlie Hills RBC 0-2 Normal 0-2 [facility] Comment on above: Performed By: #### P OCGLUC #### [facility] [address] [place] [address] Dr. Ashlie Hills WBC 0-2 Abnormal NONE SEEN [facility] Comment on above: Performed By: #### P OCGLUC #### [facility] [address] [place] [address] Dr. Ashlie Hills Covid-19 PCR ([facility])on 09-06 SARS-CoV-2 (COVID-19) RNA MADDY+probe Ql (Unsp spec) Detected Abnormal NOT DETECTED [facility] Comment on above: Result Comment: This test is not yet approved or cleared by the [place] FDA. When there are no FDA-approved or cleared tests available, and other criteria are met, FDA can make tests available under an emergency access mechanism called an Emergency Use Authorization (EUA). The EUA for this test is supported by the [place] of Health and Human Service's declaration that [...] used). Performed By: #### C VDAGS #### [facility] [address] [place] [address] Dr. Ashlie Hills INFLUENZA A AND B AGon 09-21 INFLUANEGH SEE BELOW Normal [facility] Comment on above: Result Comment: Nega tive for Flu A protein angiten. Infection due to Flu A cannot be ruled out. Flu A angiten in the sample may be below the detection limit of the test. Performed By: #### I NFLUAB #### [facility] [address] [place] [address] Dr. Ashlie Hills [facility] SEE BELOW Normal [facility] Comment on above: Result Comment: Nega tive for Flu B protein antigen. Infection due to Flu B cannot be ruled out. Flu B antigen in the sample may be below the detection limit of the test. Performed By: #### I NFLUAB #### [facility] [address] [place] [address] Dr. Ashlie Hills INFLUENZA A AG Negative Normal NEGATIVE SEE COMMENT [facility] Comment on above: Performed By: #### I NFLUAB #### [facility] [address] [place] [address] Dr. Ashlie Hills INFLUENZA B AG Negative Normal NEGATIVE SEE COMMENT [facility] Comment on above: Performed By: #### I NFLUAB #### [facility] [address] [place] [address] ABD/PELV W CONon [...] to at least 10/21/2018, unchanged. https://www.ncbi.nlm .nih.gov/pmc/article s/[id number]/ Electronically authenticated by: COLLIN HUERTAS Date: 2022-07-27 14:56 Normal [facility] CREATININEon 07-18-2022 Creatinine [Mass/Vol] 0.81 mg/dL Normal 0.55-1.02 [facility] Comment on above: Performed By: #### C BC #### [facility] [address] [place], [place] [address] Dr. Ashlie Hills EGFR-AF GABONESE >60 Normal >=60 [facility] Comment on above: Performed By: #### C BC #### [facility] [address] [place], [place] [address] Dr. Ashlie Hills EGFR-NON AF GABONESE >60 Normal >=60 [facility] Comment on above: Performed By: #### C BC #### [facility] [address] [place], [place] [address] LOW EXT W [...] PATRICIA IVAN Date: 2022-07-18 14:58 Normal [facility] XR KNEE LT 1_2 Von [...] HATTIE BAUTISTA Date: 2022-07-18 12:00 Normal [facility]09 SARS-CoV-2 (COVID-19) RNA MADDY+probe Ql (Unsp spec) Not detected Normal NOT DETECTED [facility] Comment on above: Result Comment: [...] the [place] of Health and Human Service's (HHS's) declaration [...] SARS-CoV-2. Performed By: #### C BC #### [facility] [address] [place] [address] Dr. Ashlie Hills INFLUENZA A AND B [facility] 07-06 [facility] SEE BELOW Normal [facility] Comment on above: Result Comment: Nega tive for Flu A protein angiten. Infection due to Flu A cannot be ruled out. Flu A angiten in the sample may be below the detection limit of the test. Performed By: #### C BC #### [facility] [address] [place] [address] [id number] [address] Ashlie Hills [facility] SEE BELOW Normal [facility] Comment on above: Result Comment: Nega tive for Flu B protein antigen. Infection due to Flu B cannot be ruled out. Flu B antigen in the sample may be below the detection limit of the test. Performed By: #### C BC #### [facility] [address] [place] [address] Dr. Ashlie Hills INFLUENZA A AG Negative Normal NEGATIVE SEE COMMENT [facility] Comment on above: Performed By: #### C BC #### [facility] [address] [place] [address] Dr. Ashlie Hills INFLUENZA B AG Negative Normal NEGATIVE SEE COMMENT [facility] Comment on above: Performed By: #### C BC #### [facility] [address] [place] [address] Dr. Ashlie Hills POINT OF CARE GLUCOSEon 10- Glucose [Mass/Vol] 108 mg/dL Critically high 74-106 [facility] Comment on above: Performed By: #### C BC #### [facility] [address] [place] [address] Dr. Ashlie Hills RAGHU by IFAon 03-07-2022 Antinuclear Antibodies, IFA Negative Normal [facility] Comment on above: Result Comment: Nega tive <1:80 Borderline 1:80 Positive >1:80 ICAP nomenclature: AC-0 For more information about Hep-2 cell patterns use ANApatterns.org, the official website for the International Consensus on Antinuclear Antibody (RAGHU) Patterns (ICAP). Performed By: #### A NAIFA #### [facility] [address] [place] [address] Dr. Ashlie Hills IMMUNOFIXATION (TREVON), URINEo n 03-07-2022 TREVON Interpretation:U Comment Normal [facility] Comment on above: Result Comment: No m onoclonality detected. Performed By: #### C BC #### [facility] [address] [place] [address] Dr. Ashlie Hills IMMUNOFIXATION(TREVON),PROTEIN ELEC(PE),FREon 03-07-2022 Albumin [Mass/Vol] 3.0 g/dL Normal 2.9-4.4 [facility] Comment on above: Performed By: #### I NFLUAB #### [facility] [address] [place] [address] Dr. Ashlie Hills Albumin/Globulin [Mass ratio] 0.8 {ratio} Normal 0.7-1.7 [facility] Comment on above: Performed By: #### I NFLUAB #### [facility] [address] [address] [address] Ashlie Hills Fwubj-7-Awmhbtza 0.3 g/dL Normal 0.0-0.4 [facility] Comment on above: Performed By: #### I NFLUAB #### [facility] [address] [address] [address] Ashlie Hills Zymze-9-Xxtckyhe 1.0 g/dL Normal 0.4-1.0 [facility] Comment on above: Performed By: #### I NFLUAB #### [facility] [address] [place] [address] Dr. Ashlie Hills Beta Globulin 1.8 g/dL Critically high 0.7-1.3 [facility] Comment on above: Performed By: #### I NFLUAB #### [facility] [address] [place] [address] Dr. Ashlie Hills Free [place] Lt Chains,S 45.2 mg/L Critically high 3.3-19.4 [facility] Comment on above: Performed By: #### I NFLUAB #### [facility] [address] [place] [address] Dr. Ashlie Hills Free [place]ambda Lt Chains,S 40.3 mg/L Critically high 5.7-26.3 [facility] Comment on above: Performed By: #### I NFLUAB #### [facility] [address] [place] [address] Dr. Ashlie Hills Gamma Globulin 0.8 g/dL Normal 0.4-1.8 [facility] Comment on above: Performed By: #### I NFLUAB #### [facility] [address] [place] [address] Dr. Ashlie Hills Globulin (S) [Mass/Vol] 3.9 g/dL Normal 2.2-3.9 [facility] Comment on above: Performed By: #### I NFLUAB #### [facility] [address] [address] [address] Ashlie Hills Immunofixation Result, Serum Comment Normal [facility] Comment on above: Result Comment: No m onoclonality detected. Performed By: #### I NFLUAB #### [facility] [address] [address] [address] Ashlie Hills Immunoglobulin A, Qn, Serum 776 mg/dL Critically high 87-352 [facility] Comment on above: Performed By: #### I NFLUAB #### [facility] [address] [address] [address] Ashlie Hills Immunoglobulin G, Qn, Serum 955 mg/dL Normal 586-1602 [facility] Comment on above: Performed By: #### I NFLUAB #### [facility] [address] [place] [address] Dr. Ashlie Hills Immunoglobulin M, Qn, Serum 39 mg/dL Normal 26-217 [facility] Comment on above: Performed By: #### I NFLUAB #### [facility] [address] [address] [address] Ashlie Hills [place]/Lambda Ratio, S 1.12 Normal 0.26-1.65 [facility] Comment on above: Performed By: #### I NFLUAB #### [facility] [address] [address] [address] Ashlie Hills M-Bright Not Observed Normal Not Observed [facility] Comment on above: Performed By: #### I NFLUAB #### [facility] [address] [address] [address] Ashlie Hills PDF . Normal [facility] Comment on above: Performed By: #### I NFLUAB #### [facility] [address] [place] [address] Dr. Ashlie Hills Please note: Comment Normal [facility] Comment on above: Result Comment: Prot ein electrophoresis scan will follow via computer, mail, or scale technician delivery. Performed By: #### I NFLUAB #### [facility] [address] [address] [address] Ashlie Hills Protein [Mass/Vol] 6.9 g/dL Normal 6.0-8.5 [facility] Comment on above: Performed By: #### I NFLUAB #### [facility] [address] [place] [address] Dr. Ashlie Hills C-PEPTIDE, SERUMon C-Peptide, Serum 3.1 ng/mL Normal 1.1-4.4 [facility] Comment on above: Result Comment: C-Pe ptide reference interval is for fasting patients. Performed By: #### C PEPT #### [facility] [address] [address] [address] Ashlie Hills HEP B SURFACE ANTIGEN SCREEN on 03-04-2022 HBsAg Screen Negative Normal Negative [facility] Comment on above: Performed By: #### C BC #### [facility] [address] [place] [address] Dr. Ashlie Hills HEPATITIS C VIRUS AB W/ REFL EX QUANTon 03-04-2022 HCV AB <0.1 Normal 0.0-0.9 [facility] Comment on above: Performed By: #### I NFLUAB #### [facility] [address] [address] [address] Ashlie Hills Interpretation: Comment Normal [facility] Comment on above: Result Comment: Nega tive Not infected with HCV, unless recent infection is suspected or other evidence exists to indicate HCV infection. Performed By: #### I NFLUAB #### [facility] [address] [address] [address] Ashlie Hills MICROALBUMIN/ CREATININE RAT IOon 03-04-2022 Albumin, Urine 367.4 ug/mL Normal Not Estab. [facility] Comment on above: Performed By: #### C BC #### [facility] [address] [place] [address] Dr. Ashlie Hills Albumin/ Creatinine Ratio 239 mg/g creat Critically high 0-29 [facility] Comment on above: Result Comment: Norm al: 0 - 29 Moderately increased: 30 - 300 Severely increased: >300 Performed By: #### C BC #### [facility] [address] [address] [address] Ashlie Hills Creatinine, Urine 153.9 mg/dL Normal Not Estab. [facility] Comment on above: Performed By: #### C BC #### [facility] [address] [address] [address] Ashlie Hills VIT D 25-OH LABCORPon 2021 Vitamin D, 25-Hydroxy <4.0 Critically low 30.0-100.0 [facility] Comment on above: Result Comment: Graciela min D deficiency has been defined by the [place] of [employer] and an Endocrine Society practice guideline as a level of serum 25-OH vitamin D less than 20 ng/mL (1,2). The Endocrine Society went on to further define vitamin D insufficiency as a level between 21 and 29 ng/mL (2). 1. IOM ([place] of [employer]). 2010. Dietary reference intakes for calcium and D. [place]: The National Academies Press. 2. Lynda MF, Keely OLIVEROS, Leandra LOPEZ, et al. Evaluation, treatment, and prevention of vitamin D deficiency: an Endocrine Society clinical practice guideline. JCEM. 2010; 96(7):1911-30. Performed By: #### C BC #### [facility] [address] [address] [address] Ashlie Hills GLYCOHEMOGLOBIN A1Con 2021 ADA RECOMMENDATION SEE BELOW Normal [facility] Comment on above: Result Comment: ADA RECOMMENDED LIMIT 4.0 - 6.0 ADA THERAPEUTIC TARGET < 7.0 ACTION SUGGESTED > 7.0 Performed By: #### C VDAGS #### [facility] [address] [address] [address] Ashlie Hills Glucose [Mass/Vol] 295 mg/dL Normal [facility] Comment on above: Performed By: #### C VDAGS #### [facility] [address] [address] [address] Ashlie Hills HbA1c (Bld) [Mass fraction] 11.9 % Critically high 4.5-6.2 [facility] Comment on above: Performed By: #### C VDAGS #### [facility] [address] [place] [address] Dr. Ashlie Hills HEMOGRAM AND PLATELon 2021 Hematocrit (Bld) [Volume fraction] 56.3 % Critically high 36.0-48.0 [facility] Comment on above: Performed By: #### C VDAGS #### [facility] [address] [place] [address] Dr. Ashlie Hills Hemoglobin (Bld) [Mass/Vol] 18.0 g/dL Critically high 12.0-16.0 [facility] Comment on above: Performed By: #### C VDAGS #### [facility] [address] [place] [address] Dr. Ashlie Hills MCH (RBC) [Entitic mass] 29.5 pg Normal 26.7-34.0 [facility] Comment on above: Performed By: #### C VDAGS #### [facility] [address] [place] [address] Dr. Ashlie Hills MCHC (RBC) [Mass/Vol] 32.0 g/dL Normal 29.9-35.2 [facility] Comment on above: Performed By: #### C VDAGS #### [facility] [address] [place] [address] Dr. Ashlie Hills MCV (RBC) [Entitic vol] 92.1 fL Normal 81.0-99.0 [facility] Comment on above: Performed By: #### C VDAGS #### [facility] [address] [place] [address] Dr. Ashlie Hills PLT 123 103/ul Critically low 150-450 [facility] Comment on above: Performed By: #### C VDAGS #### [facility] [address] [place] [address] Dr. Ashlie Hills RBC 6.11 106/ul Critically high 4.20-5.40 [facility] Comment on above: Performed By: #### C VDAGS #### [facility] [address] [place] [address] Dr. Ashlie Hills WBC 16.4 103/ul Critically high 4.0-11.0 [facility] Comment on above: Performed By: #### C VDAGS #### [facility] [address] [id number] Ashlie Hills LIPID PROFILEon 03-03-2022 CHOL-HDL RATIO NORM SEE BELOW Normal [facility] Comment on above: Result Comment: 3.3 - 4.4 LOW RISK 4.4 - 7.1 AVERAGE RISK 7.1 - 11.0 MODERATE RISK >11.0 HIGH RISK Performed By: #### C VDAGS #### [facility] [address] [address] [address] Ashlie Hills Cholesterol [Mass/Vol] 159 mg/dL Normal <=200 [facility] Comment on above: Performed By: #### C VDAGS #### [facility] [address] [address] [address] Ashlie Hills Cholesterol in HDL [Mass/Vol] 40 mg/dL Normal 40-60 [facility] Comment on above: Performed By: #### C VDAGS #### [facility] [address] [address] [address] Ashlie Hills Cholesterol in LDL [Mass/Vol] 81.8 mg/dL Normal [facility] Comment on above: Performed By: #### C VDAGS #### [facility] [address] [place], [place] [address] Dr. Ashlie Hills Cholesterol.total/Ch olesterol in HDL [Mass ratio] 4.0 {ratio} Normal [facility] Comment on above: Performed By: #### C VDAGS #### [facility] [address] [place], [place] [address] Dr. Ashlie Hills HDL NORMAL > or = 60 mg/dl - LOW CARDIOVASCULAR RISK <40 mg/dl - HIGH CARDIOVASCULAR RISK Normal [facility] Comment on above: Performed By: #### C VDAGS #### [facility] [address] [address] [address] Ashlie Hills LDL CALC NORMAL SEE BELOW Normal [facility] Comment on above: Result Comment: <100 mg/dl OPTIMAL 100 - 129 mg/dl NEAR OR ABOVE OPTIMAL 130 - 159 mg/dl BORDERLINE HIGH 160 - 189 mg/dl HIGH >190 mg/dl VERY HIGH Performed By: #### C VDAGS #### [facility] [address] [place] [address] Dr. Ashlie Hills Triglyceride [Mass/Vol] 186 mg/dL Critically high <=150 [facility] Comment on above: Performed By: #### C VDAGS #### [facility] [address] [place] [address] Dr. Ashlie Hills VLDL CALC 37.2 mg/dL Normal [facility] Comment on above: Performed By: #### C VDAGS #### [facility] [address] [place] [address] Dr. Ashlie Hills RENAL FUNCTION PANELon 03-03 Albumin [Mass/Vol] 3.1 g/dL Critically low 3.4-5.0 [facility] Comment on above: Performed By: #### C BC #### [facility] [address] [place] [address] Dr. Ashlie Hills Calcium [Mass/Vol] 9.2 mg/dL Normal 8.5-10.1 [facility] Comment on above: Performed By: #### C BC #### [facility] [address] [place] [address] Dr. Ashlie Hills Chloride [Moles/Vol] 102 mmol/L Normal 98-107 [facility] Comment on above: Performed By: #### C BC #### [facility] [address] [place] [address] Dr. Ashlie Hills CO2 [Moles/Vol] 31.9 mmol/L Normal 21.0-32.0 [facility] Comment on above: Performed By: #### C BC #### [facility] [address] [place] [address] Dr. Ashlie Hills Creatinine [Mass/Vol] 0.68 mg/dL Normal 0.55-1.02 [facility] Comment on above: Performed By: #### C BC #### [facility] [address] [place] [address] Dr. Ashlie Hills EGFR-AF GABONESE >60 Normal >=60 [facility] Comment on above: Performed By: #### C BC #### [facility] [address] [address] [address] Ashlie Hills EGFR-NON AF GABONESE >60 Normal >=60 [facility] Comment on above: Performed By: #### C BC #### [facility] [address] [address] [address] Ashlie Hills Glucose [Mass/Vol] 131 mg/dL Critically high 74-106 [facility] Comment on above: Performed By: #### C BC #### [facility] Laboratory [address] [address] [address] Ashlie Hills Phosphate [Mass/Vol] 4.0 mg/dL Normal 2.6-4.7 [facility] Comment on above: Performed By: #### C BC #### [facility] [address] [place] [address] Dr. Ashlie Hills Potassium [Moles/Vol] 4.0 mmol/L Normal 3.5-5.1 [facility] Comment on above: Performed By: #### C BC #### [facility] [address] [address] [address] Ashlie Hills Sodium [Moles/Vol] 141 mmol/L Normal 136-145 [facility] Comment on above: Performed By: #### C BC #### [facility] [address] [address] [address] Ashlie Hills Urea nitrogen [Mass/Vol] 17.0 mg/dL Normal 7.0-18.0 [facility] Comment on above: Performed By: #### C BC #### [facility] [address] [place] [address] Dr. Ashlie Hills UA RANDOM W/MICROSCOPICon BACTERIA NONE SEEN Normal NONE SEEN [facility] Comment on above: Performed By: #### I NFLUAB #### [facility] [address] [address] [address] Ashlie Hills Bilirubin Ql (U) Negative Normal NEGATIVE [facility] Comment on above: Performed By: #### I NFLUAB #### [facility] [address] [place] [address] Dr. Ashlie Hills CAST NONE SEEN Normal NONE SEEN [facility] Comment on above: Performed By: #### I NFLUAB #### [facility] [address] [place] [address] Dr. Ashlie Hills Clarity (U) CLEAR Normal CLEAR [facility] Comment on above: Performed By: #### I NFLUAB #### [facility] [address] [place] [address] Dr. Ashlie Hills Color (U) YELLOW Normal YELLOW [facility] Comment on above: Performed By: #### I NFLUAB #### [facility] [address] [place] [address] Dr. Ashlie Hills Crystals LM Nom (Urine sed) NONE SEEN Normal NONE SEEN [facility] Comment on above: Performed By: #### I NFLUAB #### [facility] [address] [place] [address] Dr. Ashlie Hills Epithelial cells LM Ql (Urine sed) FEW Abnormal NONE SEEN /RARE [facility] Comment on above: Performed By: #### I NFLUAB #### [facility] [address] [place] [address] Dr. Ashlie Hills Glucose Ql (U) Negative Normal NEGATIVE [facility] Comment on above: Performed By: #### I NFLUAB #### [facility] [address] [place] [address] Dr. Ashlie Hills Hemoglobin Ql (U) Negative Normal NEGATIVE [facility] Comment on above: Performed By: #### I NFLUAB #### [facility] [address] [place] [address] Dr. Ashlie Hills Ketones Ql (U) Negative Normal NEGATIVE [facility] Comment on above: Performed By: #### I NFLUAB #### [facility] [address] [place] [address] Dr. Ashlie Hills LEUKOCYTES Negative Normal NEGATIVE [facility] Comment on above: Performed By: #### I NFLUAB #### [facility] [address] [place] [address] Dr. Ashlie Hills MUCOUS NONE SEEN Normal NONE SEEN [facility] Comment on above: Performed By: #### I NFLUAB #### [facility] [address] [address] [address] Ashlie Hills Nitrite Ql (U) Negative Normal NEGATIVE [facility] Comment on above: Performed By: #### I NFLUAB #### [facility] [address] [place] [address] Dr. Ashlie Hills pH (U) 5.5 [pH] Normal 5-9 [facility] Comment on above: Performed By: #### I NFLUAB #### [facility] [address] [place] [address] Dr. Ashlie Hills RBC 0-2 Normal 0-2 [facility] Comment on above: Performed By: #### I NFLUAB #### [facility] [address] [place] [address] Dr. Ashlie Hills SPEC GRAVITY >=1.030 Abnormal 1.005-<=1.025 [facility] Comment on above: Performed By: #### I NFLUAB #### [facility] [address] [place] [address] Dr. Ashlie Hills UA PROTEIN 100 mg/dl Abnormal NEGATIVE/ TRACE [facility] Comment on above: Performed By: #### I NFLUAB #### [facility] [address] [place] [address] Dr. Ashlie Hills Urobilinogen Qn (U) 0.2 {Little'U}/dL Normal 0.2 - 1. 0 [facility] Comment on above: Performed By: #### I NFLUAB #### [facility] [address] [place] [address] Dr. Ashlie Hills WBC NONE SEEN Normal NONE SEEN [facility] Comment on above: Performed By: #### I NFLUAB #### [facility] [address] [place] [address] Dr. Ashlie Hills URIC ACID SERUMon 03-03-2022 Urate [Mass/Vol] 5.0 mg/dL Normal 2.6-6.0 [facility] Comment on above: Performed By: #### I NFLUAB #### [facility] [address] [place] [address] Dr. Ashlie Hills URINE T PROTEIN CREAT RATIOo n 03-03-2022 Protein (U) [Mass/Vol] 77.9 mg/dL Critically high <=12.0 [facility] Comment on above: Performed By: #### C VDAGS #### [facility] [address] [place] [address] Dr. Ashlie Hills UR PROT CREAT RAT 0.44 Normal [facility] Comment on above: Performed By: #### C VDAGS #### [facility] [address] [place] [address] Dr. Ashlie Hills URINE CREAT 175.15 mg/dL Normal 20.00-300.00 [facility] Comment on above: Performed By: #### C VDAGS #### [facility] [address] [place] [address] Dr. Ashlie Hills CULTURE URINEon 12-25-2021 CULTURE URINE Culture Observations: GREATER THAN TWO ORGANISMS PRESENT, HEAVILY MIXED. PLEASE RESUBMIT CLEAN CATCH MID-STREAM URINE IF CLINICALLY INDICATED. Normal [facility] Comment on above: Performed By: #### I NFLUAB #### [facility] [address] [place] [address] Dr. Ashlie Hills CBC AUTO DIFFon 12-24-2021 BASO # 0.1 103/ul Normal 0.0-0.1 [facility] Comment on above: Performed By: #### C BC #### [facility] [address] [place] [address] Dr. Ashlie Hills Basophils/100 WBC (Bld) 0.5 % Normal 0.2-2.0 [facility] Comment on above: Performed By: #### C BC #### [facility] [address] [place] [address] Dr. Ashlie Hills EO # 0.4 103/ul Normal 0.0-0.7 [facility] Comment on above: Performed By: #### C BC #### [facility] [address] [address] [address] Ashlie Hills Eosinophils/100 WBC (Bld) 2.4 % Normal 0.9-7.0 [facility] Comment on above: Performed By: #### C BC #### [facility] [address] [place] [address] Dr. Ashlie Hills Erythrocyte distribution width (RBC) [Ratio] 14.1 % Normal 11.0-15.0 [facility] Comment on above: Performed By: #### C BC #### [facility] [address] [place] [address] Dr. Ashlie Hills Hematocrit (Bld) [Volume fraction] 55.9 % Critically high 36.0-48.0 [facility] Comment on above: Performed By: #### C BC #### [facility] [address] [place] [address] Dr. Ashlie Hills Hemoglobin (Bld) [Mass/Vol] 17.9 g/dL Critically high 12.0-16.0 [facility] Comment on above: Performed By: #### C BC #### [facility] [address] [place] [address] Dr. Ashlie Hills IG # 0.06 10e3/ul Critically high 0.00-0.03 [facility] Comment on above: Performed By: #### C BC #### [facility] [address] [place] [address] Dr. Ashlie Hills IG % 0.4 % Normal 0.0-0.5 [facility] Comment on above: Performed By: #### C BC #### [facility] [address] [place] [address] Dr. Ashlie Hills LYMPH # 5.8 103/ul Critically high 1.2-3.8 [facility] Comment on above: Performed By: #### C BC #### [facility] [address] [place] [address] Dr. Ashlie Hlils Lymphocytes/100 WBC (Bld) 35.4 % Normal 20.5-60.0 [facility] Comment on above: Performed By: #### C BC #### [facility] [address] [place] [address] Dr. Ashlie Hills MANUAL DIFF REQ NO Normal [facility] Comment on above: Performed By: #### C BC #### [facility] [address] [place] [address] Dr. Ashlie Hills MCH (RBC) [Entitic mass] 29.4 pg Normal 26.7-34.0 [facility] Comment on above: Performed By: #### C BC #### [facility] [address] [place] [address] Dr. Ashlie Hills MCHC (RBC) [Mass/Vol] 32.0 g/dL Normal 29.9-35.2 [facility] Comment on above: Performed By: #### C BC #### [facility] [address] [place] [address] Dr. Ashlie Hills MCV (RBC) [Entitic vol] 91.8 fL Normal 81.0-99.0 [facility] Comment on above: Performed By: #### C BC #### [facility] [address] [place] [address] Dr. Ashlie Hills MONO # 0.8 103/ul Normal 0.3-0.8 [facility] Comment on above: Performed By: #### C BC #### [facility] [address] [place] [address] Dr. Ashlie Hills Monocytes/100 WBC (Bld) 4.8 % Normal 1.7-12.0 [facility] Comment on above: Performed By: #### C BC #### [facility] [address] [place] [address] Dr. Ashlie Hills NEUT # 9.3 103/ul Critically high 1.4-6.5 [facility] Comment on above: Performed By: #### C BC #### [facility] [address] [place] [address] Dr. Ashlie Hills Neutrophils/100 WBC (Bld) 56.5 % Normal 43.0-75.0 [facility] Comment on above: Performed By: #### C BC #### [facility] [address] [place] [address] Dr. Ashlie Hills Platelet mean volume (Bld) [Entitic vol] 12.9 fL Normal 9.5-13.5 [facility] Comment on above: Performed By: #### C BC #### [facility] [address] [place] [address] Dr. Ashlie Hills PLT 127 103/ul Critically low 150-450 [facility] Comment on above: Performed By: #### C BC #### [facility] [address] [address] [address] Ashlie Hills RBC 6.09 106/ul Critically high 4.20-5.40 [facility] Comment on above: Performed By: #### C BC #### [facility] [address] [place] [address] Dr. Ashlie Hills WBC 16.4 103/ul Critically high 4.0-11.0 [facility] Comment on above: Performed By: #### C BC #### [facility] [address] [place] [address] ABD/PELVIS WO CONon [...] Severe right hip degenerative change. Normal [facility] ER URINE PROFILEon 2 Bilirubin Ql (U) Negative Normal NEGATIVE [facility] Comment on above: Performed By: #### MADELINE DIAZRO #### [facility] [address] [place] [address] Dr. Ashlie Hills Clarity (U) CLEAR Normal CLEAR [facility] Comment on above: Performed By: #### EVONNE DIAZ #### [facility] [address] [address] [address] Ashlie Hills Color (U) DK. ORANGE Abnormal YELLOW [facility] Comment on above: Performed By: #### E EVONNE LYMAN #### [facility] [address] [address] [address] Ashlie HOBBS A micrscopic examination will be performed if indicated. Normal [facility] Comment on above: Performed By: #### PEREZ DIAZICRO #### [facility] [address] [place] [address] Dr. Ashlie Hills Glucose Ql (U) 250 mg/dl Abnormal NEGATIVE [facility] Comment on above: Performed By: #### Tracey LYMAN UMICRO #### [facility] [address] [address] [address] Ashlie Hills Hemoglobin Ql (U) Negative Normal NEGATIVE [facility] Comment on above: Performed By: #### Tracey LYMAN UMICRO #### [facility] [address] [place] [address] Dr. Ashlie Hills Ketones Ql (U) Negative Normal NEGATIVE [facility] Comment on above: Performed By: #### Tracey LYMAN UMICRO #### [facility] [address] [place] [address] Dr. Ashlie Hills LEUKOCYTES Negative Normal NEGATIVE [facility] Comment on above: Performed By: #### Tracey LYMAN UMICRO #### [facility] [address] [place] [address] Dr. Ashlie Hills Nitrite Ql (U) Negative Normal NEGATIVE [facility] Comment on above: Performed By: #### Tracey LYMAN UMICRO #### [facility] [address] [place] [address] Dr. Ashlie Hills pH (U) 5.0 [pH] Normal 5-9 [facility] Comment on above: Performed By: #### Tracey LYMAN UMICRO #### [facility] [address] [place] [address] Dr. Ashlie Hills Protein (U) [Mass/Vol] 100 mg/dL Abnormal NEGATIVE/ TRACE [facility] Comment on above: Performed By: #### Tracey LYMAN UMICRO #### [facility] [address] [place] [address] Dr. Ashlie Hills SPEC GRAVITY >=1.030 Abnormal 1.005-<=1.025 [facility] Comment on above: Performed By: #### EVONNE DIAZ #### [facility] [address] [place] [address] Dr. Ashlie Hills UR MICRO IND INDICATED Normal [facility] Comment on above: Performed By: #### EVONNE DIAZ #### [facility] [address] [place] [address] Dr. Ashlie Hills Urobilinogen Qn (U) 1.0 {Little'U}/dL Normal 0.2 - 1. 0 [facility] Comment on above: Performed By: #### EVONNE DIAZ #### [facility] [address] [place] [address] Dr. Ashlie Hilsl PROF CHEM 8 (BAS METB)on Anion gap [Moles/Vol] 12.1 mmol/L Normal [facility] Comment on above: Performed By: #### I NFLUAB #### [facility] [address] [place] [address] Dr. Ashlie Hills Calcium [Mass/Vol] 9.0 mg/dL Normal 8.5-10.1 [facility] Comment on above: Performed By: #### I NFLUAB #### [facility] [address] [place] [address] Dr. Ashlie Hills Chloride [Moles/Vol] 101 mmol/L Normal 98-107 [facility] Comment on above: Performed By: #### I NFLUAB #### [facility] [address] [place] [address] Dr. Ashlie Hills CO2 [Moles/Vol] 29.1 mmol/L Normal 21.0-32.0 [facility] Comment on above: Performed By: #### I NFLUAB #### [facility] [address] [place] [address] Dr. Ashlie Hills Creatinine [Mass/Vol] 0.86 mg/dL Normal 0.55-1.02 [facility] Comment on above: Performed By: #### I NFLUAB #### [facility] [address] [place] [address] Dr. Ashlie Hills EGFR-AF GABONESE >60 Normal >=60 [facility] Comment on above: Performed By: #### I NFLUAB #### [facility] [address] [place] [address] Dr. Ashlie Hills EGFR-NON AF GABONESE >60 Normal >=60 [facility] Comment on above: Performed By: #### I NFLUAB #### [facility] [address] [address] [address] Ashlie Hills Glucose [Mass/Vol] 236 mg/dL Critically high 74-106 [facility] Comment on above: Performed By: #### I NFLUAB #### [facility] [address] [place] [address] Dr. Ashlie Hills Potassium [Moles/Vol] 4.2 mmol/L Normal 3.5-5.1 [facility] Comment on above: Performed By: #### I NFLUAB #### [facility] [address] [address] [address] Ashlie Hills Sodium [Moles/Vol] 138 mmol/L Normal 136-145 [facility] Comment on above: Performed By: #### I NFLUAB #### [facility] [address] [place] [address] Dr. Ashlie Hills Urea nitrogen [Mass/Vol] 11.0 mg/dL Normal 7.0-18.0 [facility] Comment on above: Performed By: #### I NFLUAB #### [facility] [address] [place] [address] Dr. Ashlie Hills Urea nitrogen/Creatinine [Mass ratio] 12.8 mg/mg Normal [facility] Comment on above: Performed By: #### I NFLUAB #### [facility] [address] [place] [address] Dr. Ashlie Hills URINE MICROSCOPIC ONLYon BACTERIA SMALL Abnormal NONE SEEN [facility] Comment on above: Performed By: #### E EVONNE LYMAN #### [facility] [address] [place] [address] Dr. Ashlie Hills Bacteria identified Cx Nom (U) INDICATED Normal [facility] Comment on above: Performed By: #### E RUR, UMICRO #### [facility] [address] [place] [address] Dr. Ashlie Hills CAST NONE SEEN Normal NONE SEEN [facility] Comment on above: Performed By: #### E RUR, UMICRO #### [facility] [address] [address] [address] Ashlie Hills Crystals LM Nom (Urine sed) NONE SEEN Normal NONE SEEN [facility] Comment on above: Performed By: #### E RUR, UMICRO #### [facility] [address] [place] [address] Dr. Ashlie Hills Epithelial cells LM Ql (Urine sed) MODERATE Abnormal NONE SEEN /RARE [facility] Comment on above: Performed By: #### E RUR, UMICRO #### [facility] [address] [place] [address] Dr. Ashlie Hills MUCOUS NONE SEEN Normal NONE SEEN [facility] Comment on above: Performed By: #### E RUR, UMICRO #### [facility] [address] [place] [address] Dr. Ashlie Hills RBC 0-2 Normal 0-2 [facility] Comment on above: Performed By: #### E RUR, UMICRO #### [facility] [address] [place] [address] Dr. Ashlie Hills WBC 0-2 Abnormal NONE SEEN [facility] Comment on above: Performed By: #### E RUR, UMICRO #### [facility] [address] [place] [address] Dr. Ashlie Hills YEAST PRESENT Abnormal NONE SEEN [facility] Comment on above: Performed By: #### E RUR, UMICRO #### [facility] [address] [place] [address] Dr. Ashlie Hills HIP RIGHT 1 OR 2 VWS WITH PE LVISon 07-20-2020 HIP RIGHT 1 OR [address] [facility] Department of Radiology [address] [place] [id number] Patient Name: MITZI MACIAS : 1970 Sex: F Age: Race: White Pt. Location: Patient Status: O Ordered Date: 07/20/2020 1:45:00 PM Completed Date: 07/20/2020 01:57 PM Requesting Provider: LIZ EISENBERG Attending Provider: LIZ EISENBERG Report Copy To: MCKAYLA BLAS Signs & Symptoms: M25.551 Pain in right hip I10 History: Odonnell Comments: evaluate Exam: HIP RIGHT 1 OR [...] MRI. Electronically signed: Pipo Acevedo. Transcribed by: [email or web address], User Resident: Electronically Signed by: PIPO ACEVEDO @ 07/20/2020 03:[address] [facility] Comment on above: Order Comment: evalu ate Vital Signs Date Time Vital Sign Value Performing Clinician Facility 03-08-2022 15:00-0400 Body height 170.18 cm Stephanie Tico Other [facility] Other 03-08-2022 15:00-0400 Body temperature 97.6 [degF] Stephanie Tico Other [facility] Other 03-08-2022 15:00-0400 Diastolic blood pressure 72 mm[Hg] Stephanie Tico Other [facility] Other 03-08-2022 15:00-0400 Respiratory rate 20 /min Stephanie Tico Other [facility] Other 03-08-2022 15:00-0400 SaO2% (BldA) [Mass fraction] 91 % Stephanie Tico Other [facility] Other 03-08-2022 15:00-0400 Systolic blood pressure 131 mm[Hg] Stephanie Tico Other [facility] Other 02-20-2022 09:20-0400 Body height 170.18 cm Stephanie Tico Other [facility] Other 02-20-2022 09:20-0400 Body temperature 96.5 [degF] Stephanie Tico Other [facility] Other 02-20-2022 09:20-0400 Diastolic blood pressure 69 mm[Hg] Stephanie Tico Other [facility] Other 02-20-2022 09:20-0400 Respiratory rate 20 /min Stephanie Tico Other [facility] Other 02-20-2022 09:20-0400 SaO2% (BldA) [Mass fraction] 91 % Stephanie Tico Other [facility] Other 02-20-2022 09:20-0400 Systolic blood pressure 129 mm[Hg] Stephanie Cortés Other [facility] [employer] Other 02-06-2022 10:24-0400 Blood Pressure Location Elbert VARGAS [facility] 02-06-2022 10:24-0400 Diastolic blood pressure 76 mm[Hg] Elbert VARGAS [facility] 02-06-2022 10:24-0400 Heart rate 70 /min Elbert VARGAS [facility] 02-06-2022 10:24-0400 Respiratory rate 16 /min Elbert VARGAS [facility] 02-06-2022 10:24-0400 Systolic blood pressure 134 mm[Hg] Elbert VARGAS [facility] Encounters Encounter Date Encounter Type Care Provider Facility Start: 04-22-2024 ambulatory SARAH Wilkerson ty:SHEA Villalobos Start: 01-17-2024 End: 01-17-2024 ambulatory MCKAYLA AICHHOLZ Not Available Start: 11-15-2023 End: 11-15-2023 ambulatory MCKAYLA AICHHOLZ Not Available Start: 11-14-2023 End: 11-14-2023 ambulatory [facility] Start: 11-01-2023 End: 11-01-2023 ambulatory MCKAYLA AICHHOLZ Not Available Start: 09-27-2023 End: 09-27-2023 ambulatory MCKAYLA AICHHOLZ Not Available Start: 08-17-2023 Refill Mckayla Aichholz CUSTOMER SERVICE TECHNICIAN Work Phone: [facility] Comment on above: Vaginal yeast infect ion (Primary Dx) Start: 08-14-2023 Refill Mckayla Blas CUSTOMER SERVICE TECHNICIAN Work Phone: [facility] Comment on above: Type 2 diabetes asiya itus with unspecified complications ([facility]); Edema, unspecified; Edema Start: 07-10-2023 End: 07-10-2023 ambulatory CMKAYLA BLAS Not Available Start: 12-05-2022 ambulatory NARENDRANSHERITA LAKSHMIPATHY . Facility:[facility] Start: 12-05-2022 End: 12-06-2022 Evaluation and management of inpatient UMBERTO CANTU . Facility:[facility] Start: 11-23-2022 End: 11-23-2022 ambulatory SAYDA BLAS Facility:[facility] Start: 11-22-2022 End: 11-23-2022 ambulatory SAYDA BLAS Facility:[facility] Start: 11-17-2022 End: 11-18-2022 ambulatory SUBHASH GASPAR . Facility:[facility] Start: 11-15-2022 End: 11-15-2022 Patient encounter procedure SARAH VEGA [facility] Start: 10-05-2022 End: 10-05-2022 ambulatory MARIANO DIAB . Facility:[facility] Start: 09-21-2022 End: 09-21-2022 ambulatory SAYDA BLAS Facility:[facility] Start: 09-14-2022 ambulatory RAFAEL GONGORA Facilit y:[facility] Start: 08-24-2022 End: [address] CHAPARRO Loera Facility:[facility] Start: 08-21-2022 End: 08-22-2022 [facility]ulatory [facility] Start: 07-27-2022 End: 07-28-2022 ambulatory CECILIA [...] 03-08-2022 End: 03-08-2022 ambulatory Stephanie Tico Other [facility] Other Start: 03-08-2022 Office outpatient vi sit 15 minutes Stephaine Tico [facility] Start: 03-03-2022 End: 03-04-2022 ambulatory COIL INSPECTOR MCKAYLA BLAS Facility:[facility] Start: 02-20-2022 End: 02-20-2022 ambulatory Stephanie Tico Other [facility] Other Start: 02-20-2022 Office outpatient ne w 45 minutes Stephanie Tico [facility] Nephrology Start: 02-06-2022 End: 02-06-2022 Patient encounter procedure Elbert VARGAS [facility] Start: 01-19-2022 End: 01-20-2022 ambulatory GIL VALENZUELA . Facility:[facility] Start: 12-24-2021 End: 12-24-2021 ambulatory OLE RAMIREZ Facility:[facility] Start: 08-26-2020 End: 09-10-2020 Patient encounter procedure MARY TAVERAS Facility:[facility] Start: 10-30-2019 End: 10-30-2019 Emergency department patient visit JAMES Reis [facility] Start: 10-30-2019 End: 10-30-2019 Emergency department patient visit James Desouza [facility] Emergency Department Start: 11-02-2016 Preoperative state Stephanie Tico Other [employer] Other Procedures Date Procedure Procedure Detail Performing Clinician Start: 11-22-2022 Mammography Mckayla clifford NP Work Phone: Start: 10-08-2015 Microscopic observat ion [Identifier] in Cervix by Cyto stain Mckayla Blas NP Work Phone: H/O: hysterectomy Elbert LARA Laparoscopic cholecystectomy Elbert VARGAS Operative procedure on foot Elbert VARGAS Plan of Treatment Date Care Activity Detail Author Start: 08-03-2025 Screening for malign ant neoplasm of colon [facility] Start: 11-24-2023 Urine screening for protein Diabetes: Urine Protein Screening [facility] Start: 11-23-2023 Screening for malign ant neoplasm of breast Mammogram [facility] Start: 10-15-2023 End: 10-15-2023 Patient encounter procedure 10/15/2023 4:30 PM EDT Office Visit [facility] [address] [place] [address] Mckayla Blas, SILVANO [address] [place] [id number] [facility] Start: 08-09-2023 Hemoglobin A1c measurement Diabetes: Hemoglobin A1C [facility] Start: 05-27-2021 Glaucoma screening Diabetes: R etinopathy Screening [facility] Start: 03-09-2020 Influenza vaccination Flu vacc ine (Season Ended) [place], [place] Start: 10-07-2018 Screening for malign ant neoplasm of cervix [facility] Start: 2010 Lipid panel Lipid screen [place], [place] Start: 2000 Screening for malign ant neoplasm of cervix HPV/Cotest [facility] Start: 1991 Screening for malign ant neoplasm of cervix Cervical cancer screen [place], [place] Start: 1989 DTaP/Tdap/Td vaccine ( - Tdap) DTaP/Tdap/Td vaccine ( - Tdap) [place] Start: 1985 HIV screening HIV screen Shantelle Alvarado [place], [place] Start: 1970 Medicare Annual Well ness (AWV) Medicare Annual Wellness (AWV) [facility] Start: 1970 Screening for malign ant neoplasm of colon [facility] Immunizations Immunization Date Immunization Notes [facility]-18-2023 influenza, injectabl e, quadrivalent, contains preservative Mckayla Blas CUSTOMER SERVICE TECHNICIAN Work Phone: [facility] 07-19-2021 SARS-CoV-2 (COVID-19 ) mRNA BNT-162b2 [employer] [facility] 10-28-2020 SARS-CoV-2 (COVID-19 ) mRNA BNT-162b2 [employer]ax [employer] [facility] 10-08-2020 SARS-CoV-2 (COVID-19 ) mRNA BNT-162b2 vax [employer] [facility] Payers Date Payer Category Payer Private Health Insurance [id number] 2023 Medicare [id number] 2018 Medicaid MEDICAID [facility] [id number] 2018-Present [phone] [address] [place] [address] Medicaid [id number] 2017 Medicare [facility] MEDICARE [facility] DUAL COMPLETE [id number] 2017-Present [address] [place] [address] [id number] 1970 Unknown [id number] 2.16.840.1.111037.3.579.2. 647 1970 Unknown [id number] 2.16.840.1.251108.3.579.2. 593 1970 Unknown [id number] 2.16.840.1.688717.3.579.2. 593 1970 Unknown [id number] 2.16.840.1.381349.3.579.2. 593 1970 Unknown [id number] 2.16.840.1.856329.3.579.2. 593 1970 Unknown [id number] 2.16.840.1.183544.3.579.2. 593 1970 Unknown [id number] 2.16.840.1.499767.3.579.2. 593 1970 Unknown [id number] 2.16.840.1.484818.3.579.2. 593 1970 Unknown [id number] 2.16.840.1.714270.3.579.2. 593 1970 Unknown [id number] 2.16.840.1.417935.3.579.2. 593 1970 Unknown [id number] 2.16.840.1.790824.3.579.2. 593 1970 Unknown [id number] 2.16.840.1.487888.3.579.2. 593 1970 Unknown [id number] 2.16.840.1.339174.3.579.2. 593 1970 Unknown [id number] 2.16.840.1.400664.3.579.2. 593 1970 Unknown [id number] 2.16.840.1.557787.3.579.2. 593 1970 Unknown [id number] 2.16.840.1.251429.3.579.2. 593 1970 Unknown [id number] 2.16.840.1.443634.3.579.2. 593 1970 Unknown [id number] 2.16.840.1.370962.3.579.2. 593 1970 Unknown [id number] 2.16.840.1.654706.3.579.2. 593 1970 Unknown [id number] 2.16.840.1.866706.3.579.2. 593 1970 Unknown [id number] 2.16.840.1.406790.3.579.2. 593 1970 Unknown [id number] 2.16.840.1.682242.3.579.2. 593 1970 Unknown [id number] 2.16.840.1.242153.3.579.2. 593 1970 Unknown [id number] 2.16.840.1.203192.3.579.2. 1259 1970 Unknown [id number] 2.16.840.1.535113.3.579.2. 1259 1970 Unknown [id number] 2.16.840.1.507937.3.579.2. 1259 1970 Unknown [id number] 2.16.840.1.208231.3.579.2. 1259 1970 Unknown [id number] 2.16.840.1.370817.3.579.2. 1259 1970 Unknown [id number] 2.16.840.1.812382.3.579.2. 727 1959 Medicaid [id number] 1959 Private Health Insurance [id number] 1959 Unknown [id number] 2.16.840.1.756953.19 Social History Date Type Detail Facility Start: 02-17-2014 End: 07-10-2023 Tobacco smoking status NHIS Current every day smoker [place], [place] Start: 02-17-1994 History of tobacco use Cigarette Smo ker [place] Start: 02-17-2014 End: 07-10-2023 Cigarettes smoked current (pack per day) - Reported [place] Start: 02-17-2014 Alcohol intake Current drinke r of alcohol (finding) [place] Start: 02-17-2014 Alcohol Comment Rare [place] Start: 1970 Sex Assigned At Not on file [place], [place] Exposure to SARS-CoV -2 (event) Unable to assess [place] Start: 02-06-2022 Tobacco smoking status Smoker (findi ng) [facility] Start: 07-10-2023 [facility] At [facility] Start: 11-15-2022 Tobacco smoking status Heavy t obacco smoker (finding) [facility] Start: 07-10-2023 Tobacco use and exposure Smoke less tobacco non-user [facility] Start: 07-10-2023 Alcohol intake Lifetime non-d adrien (finding) [facility] Within the last year , have you been afraid of your partner or ex-partner? No [facility] Do you belong to any clubs or organizations such as yarsanism groups, unions, fraternal or athletic groups, or [...] (one) time each day. Use as instructed [id number] Functional Status Date Assessment Result Facility 11-15-2022 Functional Status N/A [facility] 02-06-2022 Functional Status N/A [facility] Clinical Notes 01-19-2022 to 11-14-2023 Note Date & Type Note Facility 11-14-2023 Note DC Cardiology - [facility] Subjective Mitzi Macias is a 53 y.o. year old female being seen as new patient to establish care. Ref from Mckayla Blas CNP for pulmonary hypertension. She had echo in Aug 2023 while inpatient at [facility] for pneumonia and COPD exacerbation. Denies chest [...] was admitted in early 2023 to the [facility] with hypoxemia and treated as [...] wheelchair Skin: Gene (more content not included)... [facility] 11-15-2022 Hospital Discharg e instructions Patient [...] include: ?8 oz (237 mL) of milk, whllmxi-csxfizedzrdd-jezwr milk, and calcium-fortifiedfruit juice. Calcium-fortified means that [...] ?Spinach (cooked), rhubarb, beets, sweet potatoes, and Maltese chard. ?Peanuts. ?Potato chips, slovak fries, and baked potatoes with skin on. ?Nuts and nut products. ?Chocolate. If you regularly take a diuretic medicine, make sure to eat at least 1 or 2 servings of fruits or vegetables that are high in potassium each day. These include: ?Avocado. ?Banana. ?Eastsound, prune, carrot, or tomato juice. ?Baked potato. [...] magnesium, fish oil, or vitamin B6. Take ezss-zad-bsplggc and prescription medicines only as told by [...] Casseroles. Pizza. Lasagna. Frozen meals. Potato chips. Persian fries. The items listed above may not [...] provider. Document Revised: 03/06/2022 Document Reviewed: 03/06/2022 [employer] Patient Education 2022 [employer]. Follow Up Care 02/06/2022 11:44:09 With:SARAH VEGA PA-C, URL Address: [address] [facility] [place] [address] When: Unknown [facility] 08-24-2022 Note CONSULTATION CONSULTATION DATE: 08/24/2022 [...] We maintain her on pain medication with Colony 5/325 t.i.d., diclofenac 75 mg b.i.d. Her [...] her at this point. A refill for Colony 5/325 t.i.d. and diclofenac 75 mg b.i.d. will be sent to the pharmacy. Vitamin compliance and nutrition were discussed and enforced. I did highly encourage her to use exercise bands to increase the strength in her lower extremities. We will see her in three months' time, unless otherwise indicated, and patient agrees. [facility] 05-11-2022 Note CONSULTATION CONSULTATION DATE: [...] 150. Medications include Lyrica 300 mg b.i.d., Colony 5/325 t.i.d., diclofenac 75 mg b.i.d. and [...] her medications today. We will maintain Lyrica, Colony and diclofenac at the set dose and frequency. We will follow-up in the clinic in three months' time. The patient is in agreement to this. Vitamin importance and nutrition were discussed. [facility] 04-20-2022 Note CONSULTATION CONSULTATION DATE: [...] medications include Tylenol, Lyrica 300 mg b.i.d., Colony 5/325 t.i.d., amitriptyline, diclofenac and duloxetine. Patient's [...] be followed up in the clinic. [facility] 03-08-2022 Evaluation note Encounter Date [...] to the DANIEL. Thrombocytopenia is unclear etiology. [employer] Other 08-15-2022 Evaluation note* Encounter Date Diagnosis [...] follow with Dr. Souza and Dr. Vargas. [employer] Other 08-01-2022 Hospital Discharge instructions Patient Education [...] fried and sweet foods. General instructions Take whmd-izj-mjrjzos and prescription medicines only as told by [...] 04/21/2010 Document Revised: 10/16/2019 Document Reviewed: 07/11/2018 [employer] Patient Education 2020 [employer]. Follow Up Care 01/05/2022 12:02:03 With:REGLA PHIPPS, Elbert Joya, URL Address: [facility] [address], [facility] [place] [phone] When:Within 6 Month(s) Comments:w/ repeat CT A/P [facility] 07-14-2022 NoteCONSULTATION PROCEDURE DATE: 01/19/2022 PRE [...] pattern and the patient tolerated it well. [facility] Signed and Approved by: GIL VALENZUELA . 01/27/2022 14:15:00[facility]07-14-2022 NoteCONSULTATION CONSULTATION DATE: 01/19/2022 [...] today. Medications include Lyrica 300 mg b.i.d., Colony 5/325 t.i.d., diclofenac 75 mg b.i.d. and [...] in three months' time unless otherwise indicated. [facility] Signed and Approved by: GIL VALENZUELA . 01/27/2022 14:15:00[facility] HospitalEvaluation + Plan note Future Appointments Appointment Date:08/14/2022 09:15:00 AM Scheduled Provider:Elbert VARGAS MD Location:[facility] Appointment Type:URO Office Visit [facility] evaluation + Plan note Future Appointments Appointment Date:04/22/2024 10:00:00 AM Scheduled Provider:SARAH VEGA PA-C Location:[facility] Appointment Type:URO Office Visit [facility] evaluation note* Diagnosis Type 2 diabetes mellitus with unspecified complications (CMS/[facility]) Edema, unspecified Edema documented in [...] History sepsis 2010 Hospitalization History SEE ABOVE [employer] Other Hospital course Narrative No data available for this section [facility] progress note No data available for this section [facility] reason for referral (narrative) , Referral to Dr. Cortés Referred by: Elbert VARGAS MD 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 Summary Purpose Family History No Family History Records FoundNo Family History Records FoundNo Family History Records FoundNo Family History Records FoundNo Family History Records FoundNo Family History Records Found Additional Source Comments INFORMATION SOURCE (unrecogn ized section and content) DATE CREATED AUTHOR 10/30/2019 [facility] DATE CREATED AUTHOR AUTHOR'S ORGANIZ ATION 09/15/[address] [facility] DATE CREATED AUTHOR AUTHOR'S ORGANIZ ATION 12/19/2022 [facility] DATE CREATED AUTHOR AUTHOR'S ORGANIZ ATION 11/16/2023 [facility] DATE CREATED AUTHOR AUTHOR'S ORGANIZ ATION 01/23/2024 [facility] EPIC DATE CREATED AUTHOR AUTHOR'S ORGANIZ ATION 01/26/2024 [facility] Care Team (unrecognized sect ion and content) [employer]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 [employer] provides no warranty or guarantee of the accuracy or completeness of information in this document.
== END 2024-04-14 16:12 | disposition home or self-care (01) ==
LOC: WC 16:11
PROVIDERS: PCP Nurse Practitioner; Visit Provider Physician Assistant
DX: I87.311 Chronic venous hypertension (idiopathic) with ulcer of right lower extremity (principal); L97.812 Non-pressure chronic ulcer of other part of right lower leg with fat layer exposed
CPT/HCPCS: G0463

== ENCOUNTER 2024-04-24 10:22 | Outpatient (OUT) | payer MEDICARE, OTHER, SELFPAY ==
--- NOTE | 2024-04-24 10:25 | VEIN_ITS ---
The [address] [address] Patient Name: SINA NICHOLE MRN: [id number] date: 1970 Sex: F Assigned Patient Location: Current Patient Location: Accession/Order Number: [id number] Exam Date: 04/24/2024 10:25 Report Date: 04/24/2024 11:20 At the request of: RAFAEL GONGORA Procedure: VC SEGMENTAL PRESSURES EXAM: VC SEGMENTAL PRESSURES HISTORY: R09.89 COMPARISON: None. FINDINGS: Segmental pressures presented as follows (right, left) in mmHg. Brachial: 169, 166 Upper thigh: Not obtained Lower thigh: 129, 119 Calf: 124, 106 DPA: 108, 105 RESIDENTIAL CHILD CARE COUNSELOR: 100, 91 1st Toe: 124, 142 ISABELLE: 0.64, 0.62 TBI: 0.73, 0.84 The ABIs are abnormal The TBI's are Acceptable PVR waveforms: Right leg: Above knee: Moderate ischemia Below knee: Moderate ischemia Right ankle: Moderate ischemia Metatarsal: Severe ischemia Left leg: Above knee: Moderate ischemia Below knee: Moderate to severe Right ankle: Moderate ischemia Metatarsal: Moderate ischemia VEIN/VC SEGMENTAL PRESSURES IMPRESSION: Bilateral diffuse moderate ischemic waveform The ABIs consistent with bilateral moderate arterial occlusive disease Electronically authenticated by: MARYANNE GARDNER Date: 04/24/2024 11:20
--- OUTSIDE RECORDS SUMMARY | 2024-04-24 10:25 | XMS_ITS | CCD ---
Author Organization [facility] Care Team Providers Care Ostrich Farmer Name Role Phone James Desouza Primary Care Provider [phone] JAMES DESOUZA Primary Care Unavailable SHENDGE, VITHAL Admitting Unavailable SHENDGE, VITHAL Attending Unavailable AICHHOLZ, MCKAYLA Primary Care Unavailable AICHHOLZ, MCKAYLA Referring Unavailable AICHHOLZ, MCKAYLA J Primary Care Physician Tico, Stephanie Unavailable OLE RAMIREZ Attending Unavailable OLE RAMIREZ Consulting Unavailable AICHHOLZ, SHOP SERVICE TECHNICIAN MCKAYLA Primary Care Unavailable OLE RAMIREZ Admitting Unavailable ANTONY SHRESTHA Consulting Unavailable ALONDRA ., UMBERTO Admitting Unavailable ALONDRA ., UMBERTO Attending Unavailable AICHHOLZ, SHOP SERVICE TECHNICIAN MCKAYLA Primary Care Unavailable AFSANEH Loera, DR BOLANOS Consulting Unavailable MARYANNE POWER Consulting Unavailable GLENN KERR Consulting Unavailable YOMAIRA KERR Consulting Unavailable HATTIE GOFF Consulting Unavailable ALONDRA ., UMBERTO Consulting Unavailable TICO, STEPHANIE Attending Unavailable TICO, STEPHANIE Consulting Unavailable AICHHOLZ, SHOP SERVICE TECHNICIAN MCKAYLA Primary Care Unavailable TICO, STEPHANIE Admitting Unavailable REGLA ., DR DUMONT Admitting Unavailable AICHHOLZ, SHOP SERVICE TECHNICIAN MCKAYLA Primary Care Unavailable REGLA ., DR DUMONT Attending Unavailable VARGAS ., DR DUMONT Consulting Unavailable COLLIN HUERTAS Consulting Unavailable CECILIA KAUFMAN Admitting Unavailable CECILIA KAUFMAN Attending Unavailable AICHHOLZ, SHOP SERVICE TECHNICIAN MCKAYLA Primary Care Unavailable RAFAEL GONGORA Attending Unavailable RAFAEL GONGORA Admitting Unavailable AICHHOLZ, SHOP SERVICE TECHNICIAN MCKAYLA Primary Care Unavailable AICHHOLZ, SHOP SERVICE TECHNICIAN MCKAYLA Admitting Unavailable AICHHOLZ, SHOP SERVICE TECHNICIAN MCKAYLA Primary Care Unavailable AICHHOLZ, SHOP SERVICE TECHNICIAN MCKAYLA Attending Unavailable AICHHOLZ, SHOP SERVICE TECHNICIAN MCKAYLA Consulting Unavailable LAKSHMIPATHY ., NARENDRANATH Attending Anette vailable LAKSHMIPATHY ., NARENDRANATH Consulting Anette vailable LAKSHMIPATHY ., NARENDRANATH Admitting Anette vailable AICHHOLZ, SHOP SERVICE TECHNICIAN MCKAYLA Primary Care Unavailable VALENZUELA ., GIL Consulting Unavailable MORTENSEN ., DR CHAPARRO Aguillon Attending Unavailable MORTENSEN ., DR CHAPARRO Aguillon Admitting Unavailable AICHHOLZ, SHOP SERVICE TECHNICIAN MCKAYLA Primary Care Unavailable VALENZUELA ., GIL Consulting Unavailable MORTENSEN ., DR CHAPARRO Aguillon Admitting Unavailable AICHHOLZ, SHOP SERVICE TECHNICIAN MCKAYLA Primary Care Unavailable MORTENSEN ., DR CHAPARRO Aguillon Attending Unavailable HALKER ., SUBHASH Consulting Unavailable LAKSHMIPATHY ., NARENDRANATH Admitting Anette vailable LAKSHMIPATHY ., NARENDRANATH Attending Anette vailable AICHHOLZ, SHOP SERVICE TECHNICIAN MCKAYLA Primary Care Unavailable MORTENSEN ., DR CHAPARRO Aguillon Attending Unavailable MORTENSEN ., DR CHAPARRO Aguillon Admitting Unavailable VALENZUELA ., GIL Consulting Unavailable AICHHOLZ, SHOP SERVICE TECHNICIAN MCKAYLA Primary Care Unavailable VALENZUELA ., GIL Consulting Unavailable MORTENSEN ., DR CHAPARRO Aguillon Attending Unavailable MORTENSEN ., DR CHAPARRO Aguillon Admitting Unavailable AICHHOLZ, SHOP SERVICE TECHNICIAN MCKAYLA Primary Care Unavailable HATTIE BRODERICK Attending Unavailable HATTIE BRODERICK Admitting Unavailable AICHHOLZ, SHOP SERVICE TECHNICIAN MCKAYLA Primary Care Unavailable AICHHOLZ, SHOP SERVICE TECHNICIAN MCKAYLA Admitting Unavailable AICHHOLZ, SHOP SERVICE TECHNICIAN MCKAYLA Consulting Unavailable AICHHOLZ, SHOP SERVICE TECHNICIAN MCKAYLA Primary Care Unavailable AICHHOLZ, SHOP SERVICE TECHNICIAN MCKAYLA Attending Unavailable AICHHOLZ, SHOP SERVICE TECHNICIAN MCKAYLA Primary Care Unavailable MISC, DR LESLIE Admitting Unavailable MISC, DR LESLIE Attending Unavailable MISC, DR LESLIE Consulting Unavailable DIAB ., MARIANO Admitting Unavailable DIAB ., MARIANO Attending Unavailable DIAB ., MARIANO Consulting Unavailable AICHHOLZ, SHOP SERVICE TECHNICIAN MCKAYLA Primary Care Unavailable RASTEGAR, RICCO Consulting Unavailable AICHHOLZ, SHOP SERVICE TECHNICIAN MCKAYLA Admitting Unavailable AICHHOLZ, SHOP SERVICE TECHNICIAN MCKAYLA Primary Care Unavailable AICHHOLZ, SHOP SERVICE TECHNICIAN MCKAYLA Attending Unavailable AICHHOLZ, SHOP SERVICE TECHNICIAN MCKAYLA Consulting Unavailable DR PATRICIA IVAN Consulting Unavailable TAMLYN ., CECILIA Attending Unavailable TAMLYN ., CECILIA Admitting Unavailable DR PATRICIA IVAN Consulting Unavailable AICHHOLZ, SHOP SERVICE TECHNICIAN MCKAYLA Primary Care Unavailable TAMLYN ., CECILIA Consulting Unavailable MORTENSEN ., DR CHAPARRO Aguillon Attending Unavailable FESTUS ., DR CHAPARRO Aguillon Consulting Unavailable FESTUS ., DR CHAPARRO Aguillon Admitting Unavailable AICHHOLZ, SHOP SERVICE TECHNICIAN MCKAYLA Primary Care Unavailable HATTIE BRODERICK Attending Unavailable HATTIE BRODERICK Consulting Unavailable HATTIE BRODERICK Admitting Unavailable AICHHOLZ, SHOP SERVICE TECHNICIAN MCKAYLA Primary Care Unavailable HATTIE BAUTISTA Unavailable AICHHOLZ, SHOP SERVICE TECHNICIAN MCKAYLA Admitting Unavailable AICHHOLZ, SHOP SERVICE TECHNICIAN MCKAYLA Attending Unavailable AICHHOLZ, SHOP SERVICE TECHNICIAN CMKAYLA Consulting Unavailable AICHHOLZ, SHOP SERVICE TECHNICIAN MCKAYLA Primary Care Unavailable Ty Amin MD Primary Care Provider BHARAT AGUILAR Attending Unavailable AICHHOLZ, MCKAYLA Attending Unavailable AICHHOLZ, MCKAYLA Attending Unavailable AICHHOLZ, MCKAYLA Attending Unavailable AICHHOLZ, MCKAYLA Attending Unavailable AICHHOLZ, MCKAYLA Attending Unavailable AICHHOLZ, MCKAYLA Attending Unavailable Ty Amin MD Primary Care Provider [phone] Aichholz MARKING DEVICES ASSEMBLER, Mckayla Unavailable Aichholz MARKING DEVICES ASSEMBLER, Mcakyla Unavailable DANTE VEGA Attending Unavailab le Allergies Allergy Classification Reported Allergen(s) Allergy Type Date of Onset Reaction(s) Facility (1 source) No Known Medication Allergies; 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: [No Known Medication Allergies] Propensity to adverse reactions (disorder) [facility] Medications Current Medications Medication Drug Class(es) Dates Sig (Normalized) Sig (Original) acetaminophen 325 mg / HYDROcodone bitartrate 5 mg oral tablet (9 sources) Opioid Agonist Start: 02-06-2022 acetaminophen-hydr ocodone 325 mg-5 mg oral tablet Refill(s) 0 Start Date: 02/06/22 Status: Ordered HYDROcodone-acet aminophen (Wellington) 5-325 MG tablet 1 tablet 3 (three) times a day as needed for severe pain. Active take 1 tablet by vandana twice daily as needed Wellington 5-325 MG 1 tablet as needed Orally TWICE A DAY Active albuterol 0.83 mg/ml inhalation solution (14 sources) beta2-Adrenergic Agonist Start: 02-06-2022 albut gilbert 0.083% Inh Tracey 3 mL Refill(s) 0 Start Date: 02/06/22 Status: Ordered albuterol (2.5 M G/3ML) 0.083% nebulizer solution Take 2.5 mg by nebulization every 6 (six) hours if needed for wheezing. Active take 2 puff(s) by in halation every four hours for wheezing albuterol HFA 90 mcg/act inhaler Inhale 2 puffs every 4 (four) hours if needed for wheezing. Active Albuterol Sulfat e (2.5 MG/3ML) 0.083% 3 mL as needed Inhalation every 6 hrs Active albuterol 0.833 mg/ml / ipratropium bromide 0.167 mg/ml inhalation solution (3 sources) Anticholinergic, beta2-Adrenergic Agonist ipratropium-albutero l (Duo-Neb) 0.5-2.5 mg/3 mL nebulizer solution Daily as needed Active amitriptyline hydrochloride 25 mg oral tablet (11 sources) Tricyclic Antidepressant Start: 2023 End: 2024 take 1 tablet by mouth at bedtime amitriptyline (Elavil) 25 MG tablet Indications: Insomnia Take 1 tablet (25 mg) by mouth at bedtime 90 tablet 1 04/14/2024 07/13/2024 Active Start: 02-06-2022 amitriptyline 25 mg Tab Refills(s) 0 Start Date: 02/06/22 Status: Ordered aspirin 81 mg chewable tablet (7 sources) Platelet Aggregation Inhibitor, Nonsteroidal Anti-inflammatory Drug Start: 11-01-2023 End: 07-13-2024 aspirin 81 MG chewable tablet Indications: Type 2 diabetes mellitus with complication, with long-term current use of insulin ([facility]) Chew 1 tablet (81 mg) Daily 90 tablet 1 04/14/2024 07/13/2024 Active aspirin 81 MG ch ewable tablet Chew 81 mg in the morning. 0 Active 60 actuat budesonide 0.16 mg/actuat / formoterol fumarate 0.0045 mg/actuat metered dose inhaler (4 sources) Corticosteroid, beta2-Adrenergic Agonist take 2 puff(s) by inhalation in the morning budesonide-formoterol (Symbicort) 160-4.5 MCG/ACT inhaler Inhale 2 puffs in the morning and 2 puffs before bedtime. Rinse mouth with water after use to reduce aftertaste and incidence of candidiasis. Do not swallow.. 0 Active take 2 puff(s) by inhalation twi ce daily Symbicort 160-4.5 MCG/ACT 2 puffs Inhalation Twice a day Active cetirizine hydrochloride 10 mg oral tablet (7 sources) Histamine-1 Receptor Antagonist Start: 11-01-2023 End: 07-13-2024 take 1 tablet by mouth once daily cetirizine (ZyrTEC) 10 MG tablet Indications: Non-seasonal allergic rhinitis, unspecified trigger Take 1 tablet (10 mg) by mouth Daily 90 tablet 1 04/14/2024 07/13/2024 Active take 1 tablet by mouth in the mo rning cetirizine (ZyrTEC) 10 MG tablet Take 10 mg by mouth in the morning. 0 Active dapagliflozin 10 mg oral tablet (8 sources) Sodium-Glucose Cotransporter 2 Inhibitor Start: 01-17-2024 End: 07-13-2024 take 1 tablet by mouth once daily dapagliflozin (Farxiga) 10 MG Indications: Type 2 diabetes mellitus with unspecified complications (CMS/HCC) Take 1 tablet (10 mg) by mouth Daily 90 tablet 1 04/14/2024 07/13/2024 Active Start: 08-14-2023 End: 11-12-2023 take 1 tablet by mouth in the morning dapagliflozin (Farxiga) 10 MG Indications: Type 2 diabetes mellitus with unspecified complications (CMS/HCC) Take 1 tablet (10 mg) by mouth in the morning. 90 tablet 1 08/14/2023 11/12/2023 Active diclofenac sodium 75 mg delayed release oral tablet (9 sources) Nonsteroidal Anti-inflammatory Drug Start: 02-06-2022 diclofenac sodium 75 mg Oral EC Tab Refills(s) 0 Start Date: 02/06/22 Status: Ordered 0.5 ML dulaglutide 9 MG/ML Auto-Injector [Trulicity] (4 sources) GLP-1 Receptor Agonist Start: 02-06-2022 Trulici ty Pen 4.5 mg/0.5 mL subcutaneous solution Refills(s) [...] DULoxetine 60 mg delayed release oral capsule (10 sources) Serotonin and Norepinephrine Reuptake Inhibitor Start: 024 End: 025 take 1 capsule by mouth in the morning DULoxetine (Cymbalta) [address] capsule Indications: Anxiety and depression (CMS/HCC) Take 1 capsule (60 mg) by mouth in the morning and 1 capsule (60 mg) before bedtime. Do not crush or chew.. 180 capsule 1 04/14/2024 07/13/2024 Active Start: 07-23-2023 End: 08-22-2023 take 1 capsule by mouth in the [...] Status: Ordered ergocalciferol 1.25 mg oral capsule (5 sources) Provitamin D2 Compound Start: 04-06-2024 take 1 capsule by mouth every week ergocalciferol (Vitamin D2) 1.25 MG (22052 UT) capsule Indications: Vitamin D deficiency, unspecified TAKE 1 CAPSULE BY MOUTH ONE TIME PER WEEK 12 capsule 1 04/06/2024 Active take 1 capsule by mouth every we ek ergocalciferol (Vitamin D-2) 1.25 MG (88524 UT) capsule Take 1.25 mg by mouth [...] the morning. 0 08/17/2023 Discontinued (Reorder) furosemide 40 mg oral tablet (16 sources) Loop Diuretic Start: 04-06-2024 End: 07-05-2024 take 1 tablet by mouth once daily furosemide (Lasix) 40 MG tablet Indications: Bilateral lower extremity edema Take 1 tablet (40 mg) by mouth Daily 90 tablet 1 04/06/2024 07/05/2024 Active Start: 02-08-2024 End: 05-08-2024 take 1 tablet by mouth once daily as needed for edema furosemide (Lasix) 20 MG tablet Indications: Bilateral lower extremity edema Take 1 tablet (20 mg) by mouth Daily as needed (edema) Take in the afternoon as needed 90 tablet 1 02/08/2024 05/08/2024 Active Start: 02-06-2022 furosemide 20 mg Tab Refills(s) 0 Start Date: 02/06/22 Status: Ordered furosemide (Lasi x) 20 MG tablet Take 60 mg by mouth in the morning and 60 mg before bedtime. 40 mg in the morning and 20 mg in the afternoon. 0 Active take 1 tablet by vandana th in the morning furosemide (Lasix) 40 MG tablet Take 40 mg by mouth in the morning. 0 Active Glucose Blood (ACCU-CHEK STEPHANY VA PLUS ) (5 sources) Glucose Blood (A CCU-CHEK JAQUI PLUS ) 4 (four) times a day. Active Glucose Blood (A CCU-CHEK JAQUI PLUS ) 4 (four) times a day. 0 Active hydrALAZINE hydrochloride 25 mg oral tablet (5 sources) Arteriolar Vasodilator Start: 09-13-2023 End: 07-13-2024 take 1 tablet by mouth in the morning hydrALAZINE (Apresoline) 25 MG tablet Indications: Primary hypertension (CMS/HCC) Take 1 tablet (25 mg) by mouth in the morning and 1 tablet (25 mg) before bedtime. 180 tablet 1 04/14/2024 07/13/2024 Active insulin aspart protamine, human 70 unt/ml [...] ml insulin glargine 100 unt/ml pen injector (14 sources) Insulin Analog Start: 10-30-2023 End: 04-14-2024 Lantus SoloStar 100 UNIT/ML pen 10/30/2023 04/14/2024 Discontinued (Therapy completed) Start: 02-06-2022 Lantus Solosta r Pen 100 units/mL subcutaneous solution Refills(s) 0 Start Date: 02/06/22 Status: Ordered End: 04-14-2024 inject 58 [IU] by subcutaneous injection in the morning insulin glargine (Lantus) 100 UNIT/ML injection Inject 58 Units under the skin in the morning and 58 Units before bedtime. Active Lantus SoloStar 100 UNIT/ML as directed Subcutaneous 58 UNITS ONCE A DAY Active 3 ml insulin lispro 100 unt/ml pen injector (5 sources) Insulin Analog Start: 10-06-2023 End: 04-14-2024 HumaLOG KWIKPEN 100 UNIT/ML injection Inject under the skin 10/06/2023 04/14/2024 Discontinued (Therapy completed) inject 1 [IU] by sub cutaneous injection three times daily before mealtime Insulin Lispro (HUMALOG KWIKPEN SC) Inject under the skin 3 (three) times a day before meals 8-10-12 units before meals and sliding scale Active lisinopril 20 mg oral tablet (11 sources) Angiotensin Converting Enzyme Inhibitor Start: 11-01-2023 End: 07-13-2024 take 1 tablet by mouth once daily lisinopril 20 MG tablet Indications: Primary hypertension (CMS/HCC) Take 1 tablet (20 mg) by mouth Daily 90 tablet 1 04/14/2024 07/13/2024 Active Start: 07-15-2023 take 1 tablet by vandana th in the morning lisinopril 20 MG tablet [...] 2 times daily (with meals). 0 Active Mounjaro 10 MG/0.5ML solution pen-injector (2 sources) Start: 2023 End: 2023 inject 10 mg by subcutaneous injection every week Mounjaro 10 MG/0.5ML solution pen-injector INJECT 10MG SUBCUTANEOUSLY ONCE A WEEK 10/22/2023 04/14/2024 Discontinued (Therapy completed) Mounjaro 15 MG/0.5ML solution auto-injector (3 sources) Start: 2023 Mounjaro 15 MG/0.5ML solution auto-injector Inject 15 mg as directed every 7 (seven) days 02/18/2024 Active nortriptyline 50 mg oral capsule (3 sources) Tricyclic Antidepressant take 1 capsule by mouth once daily nortriptyline (Pamelor) 50 MG capsule Take 1 capsule by mouth Daily Active omeprazole 20 mg delayed release oral capsule (7 sources) Proton Pump Inhibitor Start: 2023 End: 2024 take 1 capsule by mouth before mealtime omeprazole (PriLOSEC) [address] capsule Indications: Gastro-esophageal reflux disease without esophagitis Take 1 capsule (20 mg) by mouth in the morning. Take before meals. 90 capsule 1 04/14/2024 07/13/2024 Active take 1 capsule by mouth before m ealtime omeprazole (PriLOSEC) [address] capsule Take 20 mg by mouth in the morning. Take before meals. Do not crush or chew. . 0 Active Oxygen (3 sources) oxygen (O2) gas Inhale 2 L/min continuously via nasal canula Active potassium chloride 10 meq extended release oral capsule (12 sources) Start: 02-06-2022 End: 07-13-2024 take 1 capsule by mouth once daily in the morning potassium chloride ER (Micro-K) 10 MEQ ER capsule Indications: Edema, unspecified , Edema Take 1 capsule (10 mEq) by mouth Daily Take 1 capsule (10 mEq) by mouth in the morning. 90 capsule 1 04/14/2024 07/13/2024 Active take 1 tablet by vandana th every twenty-four hours Potassium Chloride ER 10 MEQ 1 tablet with food Orally Once a day Active pregabalin 300 mg oral capsule (13 sources) Start: 11-13-2023 End: 05-14-2024 take 1 capsule by mouth in the morning pregabalin (Lyrica) 300 MG capsule Indications: Diabetic polyneuropathy associated with type 2 diabetes mellitus (CMS/HCC) Take 1 capsule (300 mg) by mouth in the morning and 1 capsule (300 mg) before bedtime. 60 capsule 5 04/14/2024 05/14/2024 Active Start: 02-06-2022 Lyrica Oral, R efills(s) 0 Start Date: 02/06/22 Status: Ordered Start: 02-06-2022 pregabalin 300 mg Cap Refills(s) 0 Start Date: 02/06/22 Status: Ordered roflumilast 0.5 mg oral tablet (5 sources) Phosphodiesterase 4 Inhibitor Start: 01-04-2024 End: 07-13-2024 take 1 tablet by mouth once daily Roflumilast 500 MCG tablet Indications: Chronic obstructive pulmonary disease, unspecified (CMS/HCC) Take 1 tablet by mouth Daily 90 tablet 1 04/14/2024 07/13/2024 Active simvastatin 10 mg oral tablet (5 sources) HMG-CoA Reductase Inhibitor Start: 04-06-2024 End: 07-05-2024 take 1 tablet by mouth at bedtime simvastatin (Zocor) 10 MG tablet Indications: Hyperlipidemia, unspecified (CMS/HCC) Take 1 tablet (10 mg) by mouth at bedtime 90 tablet 1 04/06/2024 07/05/2024 Active Start: 06-15-2023 End: 09-13-2023 take 1 tablet [...] spray (6 sources) Anticholinergic Start: 02-06-2022 Spiriva Respim at [...] TWICE A DAY Active triamcinolone acetonide 1 mg/ml topical cream (2 sources) Corticosteroid triamcinolone (Kenalog) 0.1 % cream Apply 1 application topically in the morning and 1 application before bedtime. 0 Active ubrogepant 100 mg oral tablet (3 sources) take 1 tablet by mouth every twenty-four hours as needed Ubrogepant (Ubrelvy) 100 MG tablet Take 100 mg by mouth Daily as needed Active varenicline (3 sources) Partial Cholinergic Nicotinic Agonist Start: 12-05-19 Varenicline Tartrate, Starter, 0.5 MG X 11 & 1 MG X 42 tablet therapy pack TAKED DIRECTED BY MOUTH TWICE DAILY 12/05/2023 Active Problems Active Problems Problem Classification Problem Date Documented Da te Episodic/Chronic Abdominal pain (5 sources) Left flank pain; 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: [Lower abdominal pain, unspecified] Onset: 3 02-06-2022 Episodic Acquired foot deformities (1 source) Other hammer toe(s) (acquired), right foot; 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: [OTHER HAMMER TOES ACQUIRED RT FOOT] Onset: 3 Chronic Acquired foot deformities (1 source) Other hammer toe(s) (acquired), left foot; 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: [OTHER HAMMER TOES ACQUIRED LT FOOT] Onset: 3 Chronic Anxiety disorders (7 sources) Mixed anxiety and depressive disorder; 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: [Anxiety disorder, unspecified] Onset: 4 07-10-2023 Chronic Asthma (7 sources) Asthma; 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: [Unspecified asthma, uncomplicated] Onset: 4 02-06-2022 Chronic Cancer of cervix (3 sources) Malignant tumor of cervix; 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: [Malignant neoplasm of cervix uteri, unspecified] Onset: 4 09-17-2023 Chronic Chronic kidney disease (5 sources) Chronic kidney disease; 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: [Chronic kidney disease, unspecified] Onset: 2 Resolved: 2 Chronic Chronic obstructive pulmonary disease and bronchiectasis (18 sources) Pulmonary emphysema; 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: [Chronic obstructive pulmonary disease with (acute) exacerbation] Onset: 3 02-06-2022 Chronic Chronic ulcer of skin (3 sources) Non-pressure chronic ulcer of other part of right lower leg limited to breakdown of skin; 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: [Non-pressure chronic ulcer of other part of left lower leg limited to breakdown of skin] Onset: 3 Chronic Congestive heart failure; nonhypertensive (2 sources) Chronic diastolic (congestive) heart failure; 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: [Chronic diastolic (congestive) heart failure] Onset: 4 Chronic Diabetes mellitus with complications (20 sources) Disorder of kidney due to diabetes mellitus; 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: [Type 2 diabetes mellitus with diabetic chronic kidney disease] Onset: 2 Resolved: 2 Chronic Diabetes mellitus without complication (6 sources) Type 2 diabetes mellitus; 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: [Type 2 diabetes mellitus without complications] Onset: 2 02-06-2022 Chronic Disorders of lipid metabolism (8 sources) Pure hypercholesterolemia, unspecified; 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: [Hyperlipidemia, unspecified] Onset: 2 Chronic Esophageal disorders (6 sources) Gastro-esophageal reflux disease without esophagitis; 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: [Gastroesophageal reflux disease] Onset: 3 09-17-2023 Chronic Essential hypertension (16 sources) Hypertensive disorder; 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: [Essential (primary) hypertension] Onset: 3 02-06-2022 Chronic Genitourinary symptoms and ill-defined conditions (7 sources) Mixed incontinence; 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: [Incontinence] Onset: 2 Chronic Gout and other crystal arthropathies (3 sources) Gout; 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: [Gout, unspecified] Onset: 8 09-17-2023 Chronic Hypertension with complications and secondary hypertension (5 sources) Chronic kidney disease due to hypertension; 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: [Hypertensive chronic kidney disease with stage 1 through stage 4 chronic kidney disease, or unspecified chronic kidney disease] Onset: 2 Resolved: 2 Chronic Mood disorders (1 source) Major depressive disorder, single episode, unspecified; 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: [ANASTACIO DEPRESS D/O SINGLE EPIS UNS] Onset: 2 Chronic Noninfectious gastroenteritis (1 source) Noninfective gastroenteritis and colitis, unspecified; 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: [NONINFECTIVE GE AND COLITIS UNS] Onset: 3 Episodic Osteoarthritis (15 sources) Arthritis; 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: [Unspecified osteoarthritis, unspecified site] Onset: 2 02-06-2022 Chronic Other aftercare (1 source) Other residential (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 therapy; 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: [OTH JAIL CURRENT DRUG THERAPY] Onset: 3 Episodic Other aftercare (1 source) remote 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 operator (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; 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: [EMERGENCY PHYSICIAN CURRENT USE OF ASPIRIN] Onset: 3 Episodic Other aftercare (1 source) [facility] (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; 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: [EMERGENCY PHYSICIAN CURRENT USE OF INSULIN] Onset: 3 Episodic Other and ill-defined heart disease (2 sources) Cardiomegaly; 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: [Cardiomegaly] Onset: 4 Chronic Other and ill-defined heart disease (3 sources) Cardiomegaly; 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: [Cardiomegaly] Onset: 8 09-17-2023 Chronic Other bone disease and musculoskeletal deformities (1 source) Acquired absence of other left toe(s); 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: [ACQUIRED ABSENCE OF OTHER LEFT TOES] Onset: 3 Episodic Other diseases of kidney and ureters (1 source) Urinary tract obstruction; 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: [Other obstructive and reflux uropathy] Onset: 2 Episodic Other diseases of veins and lymphatics (1 source) Chronic venous hypertension (idiopathic) with ulcer and inflammation of bilateral lower extremity; 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: [CHRN KEO HTN ULCR INFLAM ALEX LW EXT] Onset: 3 Chronic Other diseases of veins and lymphatics (1 source) Chronic venous hypertension (idiopathic) with ulcer of left lower extremity; 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: [CHRON VENOUS HTN W/ULCER LT LW EXT] Onset: 3 Chronic Other diseases of veins and lymphatics (1 source) Lymphedema, not elsewhere classified; 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: [LYMPHEDEMA NOT ELSEWHERE CLASSIFIED] Onset: 3 Chronic Other endocrine disorders (2 sources) Disorder of adrenal gland; Translations: [Other specified disorders of adrenal gland] Onset: 2 Chronic Other endocrine disorders (5 sources) Adrenal mass; Translations: [Disorder of adrenal gland, unspecified] Onset: 4 09-17-2023 Chronic Other endocrine disorders (2 sources) Disorder of adrenal gland, unspecified Onset: 2 Resolved: 2 Chronic Other endocrine disorders (5 sources) Other specified disorders of adrenal gland; Translations: [OTHER SPEC DISORDERS ADRENAL GLAND] Onset: 3 Chronic Other gastrointestinal disorders (2 sources) Adrenal mass 02-06-2022 Episodic Other lower respiratory disease (1 source) Hypoxemia; Translations: [HYPOXEMIA] Onset: 3 Episodic Other lower respiratory disease (2 sources) Shortness of breath; Translations: [Shortness of breath] Onset: 4 Episodic Other nervous system disorders (5 sources) Chronic pain syndrome; Translations: [CHRONIC PAIN SYNDROME] Onset: 2 Chronic Other nervous system disorders (1 source) Other chronic pain; Translations: [OTHER CHRONIC PAIN] Onset: 2 Chronic Other non-traumatic joint disorders (4 sources) Pain in right hip; Translations: [PAIN IN RIGHT HIP] Onset: 2 Episodic Other nutritional; endocrine; and metabolic disorders (2 sources) Localized adiposity; Translations: [Localized adiposity] Chronic Other nutritional; endocrine; and metabolic disorders (2 sources) Body mass index 40+ - severely obese; Translations: [Body mass index (BMI) 50.0-59.9, adult] Chronic Other nutritional; endocrine; and metabolic disorders (1 source) Body mass index (BMI) 50.0-59.9, adult; Translations: [BODY MASS INDEX BMI 50.0-59.9 ADULT] Onset: 3 Chronic Other nutritional; endocrine; and metabolic disorders (1 source) Morbid (severe) obesity due to excess calories; Translations: [MORBID SEVERE OBES D/T EXCESS NHI] Onset: 3 Chronic Other nutritional; endocrine; and metabolic disorders (1 source) Obesity, unspecified; Translations: [OBESITY UNSPECIFIED] Onset: 2 Chronic Other nutritional; endocrine; and metabolic disorders (3 sources) Excess panniculus of abdomen; Translations: [Localized adiposity] Onset: 8 09-17-2023 Chronic Other screening for suspected conditions (not mental disorders or infectious disease) (1 source) Encounter for screening mammogram for malignant neoplasm of breast; Translations: [ENC SCR MAMMO MALIG NEOPLASM BREAST] Onset: 3 Episodic Other skin disorders (4 sources) Hyperpigmentation of skin; Translations: [Disorder of pigmentation, unspecified] Onset: 4 04-14-2024 Episodic Other upper respiratory disease (5 sources) Allergic rhinitis; Translations: [Other allergic rhinitis] Onset: 4 11-01-2023 Chronic Peripheral and visceral atherosclerosis (4 sources) Peripheral vascular disease, unspecified; Translations: [Peripheral vascular disease, unspecified] Onset: 3 09-17-2023 Chronic Pulmonary heart disease (3 sources) Pulmonary hypertension; Translations: [Pulmonary hypertension, unspecified] Onset: 4 09-17-2023 Chronic Residual codes; unclassified (1 source) Obstructive sleep apnea (adult) (pediatric); Translations: [OBSTRUCTIVE SLEEP APNEA] Onset: 3 Chronic Residual codes; unclassified (5 sources) Obstructive sleep apnea syndrome; Translations: [Obstructive sleep apnea (adult) (pediatric)] Onset: 4 07-10-2023 Chronic Residual codes; unclassified (1 source) Acquired absence of other specified parts of digestive tract; Translations: [ACQ ABSENCE OTH PART DIGESTV TRACT] Onset: 3 Episodic Residual codes; unclassified (1 source) Acquired absence of both cervix and uterus; Translations: [ACQUIRED ABSENCE BOTH CERVIX AND UTERUS] Onset: 3 Episodic Residual codes; unclassified (1 source) Family history of malignant neoplasm of ovary; Translations: [FAM HX MALIGNANT NEOPLASM OVARY] Onset: 3 Episodic Residual codes; unclassified (1 source) Family history of malignant neoplasm, unspecified; Translations: [FAM HX MALIGNANT NEOPLASM UNS] Onset: 3 Episodic Residual codes; unclassified (11 sources) Edema; Translations: [Edema, unspecified] Onset: 4 Resolved: 4 08-14-2023 Episodic Residual codes; unclassified (7 sources) Bilateral lower limb edema; Translations: [Localized edema] Onset: 4 07-10-2023 Episodic Residual codes; unclassified (5 sources) Insomnia; Translations: [Insomnia, unspecified] Onset: 4 09-17-2023 Episodic Residual codes; unclassified (5 sources) Tobacco user; Translations: [Tobacco use] Onset: 4 09-17-2023 Episodic Substance-related disorders (5 sources) Nicotine dependence; Translations: [Nicotine dependence, unspecified, uncomplicated] Onset: 2 Chronic Comment on above: Added secondary to d ocumentation in Social History. Unclassified (1 source) JAIL INJECT NONINSULN ANTIDIAB; Translations: [JAIL INJECT NONINSULN ANTIDIAB] Onset: 3 Unclassified (3 sources) CONTACT W/AND (SUSP) EXPOS COVID-19; Translations: [CONTACT W/AND (SUSP) EXPOS COVID-19] Onset: 2 Unclassified (3 sources) LOW BACK PAIN, UNSPECIFIED; Translations: [LOW BACK PAIN, UNSPECIFIED] Onset: 2 Viral infection (1 source) COVID-19; Translations: [COVID-19] Onset: 3 Past or Other Problems Problem Classification Problem Date Documented Date Episodic/Chronic Acquired foot deformities (1 source) Other deformities of toe(s) (acquired), left foot; Translations: [OTHER DEFORMITIES TOES ACQ LT FOOT] Onset: 09-01-2022 Episodic Administrative/social admission (5 sources) Patient encounter status; Translations: [Dietary counseling and surveillance] Onset: 11-01-2023 11-01-2023 Episodic Calculus of urinary tract (7 sources) Kidney stone; Translations: [Calculus of kidney] Onset: 02-06-2022 Episodic E Codes: Natural/environment (1 source) Other and unspecified overexertion or strenuous movements or postures, initial encounter; Translations: [OTH AND UNS OVREXRT/STRN MVMT/POS INT] Onset: 12-27-2021 Episodic Genitourinary symptoms and ill-defined conditions (12 sources) Proteinuria; Translations: [Proteinuria, unspecified] Onset: 02-06-2022 Resolved: 03-08-2022 Episodic Headache; including migraine (5 sources) Headache; Translations: [Headache disorder] Onset: 01-17-2024 02-06-2022 Episodic Immunizations and screening for infectious disease (4 sources) Encounter for screening for other infectious and parasitic diseases; Translations: [Anti-nuclear factor positive] Onset: 09-16-2020 09-17-2023 Episodic Mood disorders (4 sources) Mood disorders; Translations: [DEPRESSION UNSPECIFIED] Onset: 12-05-2022 01-17-2024 Mycoses (13 sources) Tinea unguium; Translations: [Candidiasis of vagina] Onset: 07-26-2022 Episodic Other connective tissue disease (4 sources) Other muscle spasm; Translations: [OTHER MUSCLE SPASM] Onset: 01-19-2022 Episodic Other diseases of veins and lymphatics (3 sources) Vascular insufficiency; Translations: [Venous insufficiency (chronic) (peripheral)] Onset: 09-17-2023 09-17-2023 Episodic Other hematologic conditions (1 source) Secondary polycythemia Onset: 03-08-2022 Resolved: 03-08-2022 Episodic Other nervous system disorders (3 sources) Reduced mobility; Translations: [Other abnormalities of gait and mobility] Onset: 09-17-2023 09-17-2023 Episodic Other non-traumatic joint disorders (1 source) Effusion, left knee; Translations: [EFFUSION LEFT KNEE] Onset: 07-26-2022 Episodic Other non-traumatic joint disorders (1 source) Pain in left knee; Translations: [PAIN IN LEFT KNEE] Onset: 07-26-2022 Episodic Other non-traumatic joint disorders (3 sources) Pain in right knee; Translations: [Pain in joint, lower leg] Onset: 09-17-2023 09-17-2023 Episodic Other nutritional; endocrine; and metabolic disorders (8 sources) Severe obesity; Translations: [Morbid (severe) obesity due to excess calories] Onset: 07-10-2023 Resolved: 04-14-2024 07-10-2023 Chronic Other skin disorders (1 source) Nail dystrophy; Translations: [NAIL DYSTROPHY] Onset: 09-01-2022 Episodic Other skin disorders (1 source) Corns and callosities; Translations: [CORNS AND CALLOSITIES] Onset: 09-01-2022 Episodic Other skin disorders (1 source) Xerosis cutis; Translations: [XEROSIS CUTIS] Onset: 09-01-2022 Episodic Otitis media and related conditions (3 sources) Acute suppurative otitis media without spontaneous rupture of ear drum; Translations: [Acute suppurative otitis media without spontaneous rupture of ear drum, left ear] Onset: 01-17-2024 01-17-2024 Episodic Pancreatic disorders (not diabetes) (4 sources) Acute pancreatitis without necrosis or infection, unspecified; Translations: [Pancreatitis] Onset: 10-09-2022 09-17-2023 Episodic Pneumonia (except that caused by tuberculosis or sexually transmitted disease) (3 sources) Pneumonia; Translations: [Pneumonia, unspecified organism] Onset: 09-17-2023 09-17-2023 Episodic Residual codes; unclassified (1 source) Localized edema; Translations: [LOCALIZED EDEMA] Onset: 09-01-2022 Episodic Residual codes; unclassified (3 sources) Edema of lower extremity; Translations: [Localized edema] Onset: 09-17-2023 Resolved: 09-17-2023 09-17-2023 Episodic Skin and subcutaneous tissue infections (5 sources) Cellulitis of right lower limb; Translations: [Cutaneous abscess of left axilla] Onset: 07-18-2022 Episodic Spondylosis; intervertebral disc disorders; other back problems (3 sources) Lumbar radiculopathy; Translations: [Radiculopathy, lumbar region] Onset: 09-17-2023 09-17-2023 Episodic Sprains and strains (1 source) Strain [...] Range Facility Office Visiton 11-14-2023 Follow-up visit [id number] Mitzi Macias 1970 F Date Provider Department Center 11/14/2023 BHARAT NICOLE [facility] Family History Problem Relation Age of Onset Heart attack Paternal Grandmother Family Status - Relation Status Age at Paternal Grandmother Level of Service:67546 [place] OFFICE/OUTPATIENT NEW LOW MDM [address] [facility] CBC AUTO DIFFon 12-06-2022 BASO # 0.0 103/ul Normal 0.0-0.1 [place] Comment on above: Performed By: #### C BC #### [facility] [address] [address] [address] Ashlie Hills Basophils/100 WBC (Bld) 0.1 % Critically low 0.2-2.0 [place] Comment on above: Performed By: #### C BC #### [facility] [address] [address] [address] Ashlie Hills EO # 0.0 103/ul Normal 0.0-0.7 [place] Comment on above: Performed By: #### C BC #### [facility] [address] [address] [address] Ashlie Hills Eosinophils/100 WBC (Bld) 0.0 % Critically low 0.9-7.0 [place] Comment on above: Performed By: #### C BC #### [facility] [address] [place] [address] Dr. Ashlie Hills Erythrocyte distribution width (RBC) [Ratio] 14.9 % Normal 11.0-15.0 [place] Comment on above: Performed By: #### C BC #### [facility] [address] [place] [address] Dr. Ashlie Hills Hematocrit (Bld) [Volume fraction] 46.2 % Normal 36.0-48.0 [place] Comment on above: Performed By: #### C BC #### [facility] [address] [place] [address] Dr. Ashlie Hills Hemoglobin (Bld) [Mass/Vol] 14.7 g/dL Normal 12.0-16.0 [place] Comment on above: Performed By: #### C BC #### [facility] [address] [place] [address] Dr. Ashlie Hills IG # 0.06 10e3/ul Critically high 0.00-0.03 [facility] Comment on above: Performed By: #### C BC #### [facility] [address] [place] [address] Dr. Ashlie Hills IG % 0.4 % Normal 0.0-0.5 [place] Comment on above: Performed By: #### C BC #### [facility] [address] [place] [address] Dr. Ashlie Hills LYMPH # 1.3 103/ul Normal 1.2-3.8 [facility] Comment on above: Performed By: #### C BC #### [facility] [address] [place] [address] Dr. Ashlie Hills Lymphocytes/100 WBC (Bld) 9.4 % Critically low 20.5-60.0 [facility] Comment on above: Performed By: #### C BC #### [facility] [address] [place] [address] Dr. Ashlie Hills MANUAL DIFF REQ NO Normal [facility] Comment on above: Performed By: #### C BC #### [facility] [address] [place] [address] Dr. Ashlie Hills MCH (RBC) [Entitic mass] 28.4 pg Normal 26.7-34.0 [place] Comment on above: Performed By: #### C BC #### [facility] [address] [place] [address] Dr. Ashlie Hills MCHC (RBC) [Mass/Vol] 31.8 g/dL Normal 29.9-35.2 [place] Comment on above: Performed By: #### C BC #### [facility] [address] [place] [address] Dr. Ashlie Hills MCV (RBC) [Entitic vol] 89.4 fL Normal 81.0-99.0 [place] Comment on above: Performed By: #### C BC #### [facility] [address] [place] [address] Dr. Ashlie Hills MONO # 0.5 103/ul Normal 0.3-0.8 [place] Comment on above: Performed By: #### C BC #### [facility] [address] [place] [address] Dr. Ashlie Hills Monocytes/100 WBC (Bld) 3.4 % Normal 1.7-12.0 [place] Comment on above: Performed By: #### C BC #### [facility] [address] [place] [address] Dr. Ashlie Hills NEUT # 11.8 103/ul Critically high 1.4-6.5 [facility] Comment on above: Performed By: #### C BC #### [facility] [address] [place] [address] Dr. Ashlie Hills Neutrophils/100 WBC (Bld) 86.7 % Critically high 43.0-75.0 [place] Comment on above: Performed By: #### C BC #### [facility] [address] [place] [address] Dr. Ashlie Hills Platelet mean volume (Bld) [Entitic vol] 12.6 fL Normal 9.5-13.5 [place] Comment on above: Performed By: #### C BC #### [facility] [address] [place] [address] Dr. Ashlie Hills PLT 133 103/ul Critically low 150-450 [facility] Comment on above: Performed By: #### C BC #### [facility] [address] [place] [address] Dr. Ashlie Hills RBC 5.17 106/ul Normal 4.20-5.40 [place] Comment on above: Performed By: #### C BC #### [facility] [address] [place] [address] Dr. Ashlie Hills WBC 13.6 103/ul Critically high 4.0-11.0 [facility] Comment on above: Performed By: #### C BC #### [facility] [address] [place] [address] Dr. Ashlie Hills MAGNESIUMon 12-06-2022 Magnesium [Mass/Vol] 2.2 mg/dL Normal 1.8-2.4 [place] Comment on above: Performed By: #### I NFLUAB #### [facility] [address] [place] [address] Dr. Ashlie Hills POINT OF CARE GLUCOSEon 11-08 Glucose [Mass/Vol] 340 mg/dL Critically high 74-106 [facility] Comment on above: Performed By: #### P OCGLUC #### [facility] [address] [place] [address] Dr. Ashlie Hills Glucose [Mass/Vol] 276 mg/dL Critically high 74-106 [facility] Comment on above: Performed By: #### C BC #### [facility] [address] [place] [address] Dr. Ashlie Hills Glucose [Mass/Vol] 333 mg/dL Critically high 74-106 [facility] Comment on above: Performed By: #### C BC #### [facility] [address] [place] [address] Dr. Ashlie Hills PROF CHEM 8 (BAS METB)on Anion gap [Moles/Vol] 10.9 mmol/L Normal [place] Comment on above: Performed By: #### I NFLUAB #### [facility] [address] [address] [address] Ashlie Hills Calcium [Mass/Vol] 9.3 mg/dL Normal 8.5-10.1 [facility] Comment on above: Performed By: #### I NFLUAB #### [facility] [address] [address] [address] Ashlie Hills Chloride [Moles/Vol] 103 mmol/L Normal 98-107 [place] Comment on above: Performed By: #### I NFLUAB #### [facility] [address] [address] [address] Ashlie Hills CO2 [Moles/Vol] 31.2 mmol/L Normal 21.0-32.0 [facility] Comment on above: Performed By: #### I NFLUAB #### [facility] [address] [place] [address] Dr. Ashlie Hills Creatinine [Mass/Vol] 0.96 mg/dL Normal 0.55-1.02 [place] Comment on above: Performed By: #### I NFLUAB #### [facility] [address] [address] [address] Ashlie Hills EGFR-AF CAMBODIAN >60 Normal >=60 [facility] Comment on above: Performed By: #### I NFLUAB #### [facility] [address] [place] [address] Dr. Ashlie Hills EGFR-NON AF CAMBODIAN >60 Normal >=60 [place] Comment on above: Performed By: #### I NFLUAB #### [facility] [address] [place] [address] Dr. Ashlie Hills Glucose [Mass/Vol] 288 mg/dL Critically high 74-106 [facility] Comment on above: Performed By: #### I NFLUAB #### [facility] [address] [address] [address] Ashlie Hills Potassium [Moles/Vol] 5.1 mmol/L Normal 3.5-5.1 [place] Comment on above: Performed By: #### I NFLUAB #### [facility] [address] [address] [address] Ashlie Hills Sodium [Moles/Vol] 140 mmol/L Normal 136-145 [facility] Comment on above: Performed By: #### I NFLUAB #### [facility] [address] [place] [address] Dr. Ashlie Hills Urea nitrogen [Mass/Vol] 30.0 mg/dL Critically high 7.0-18.0 [place] Comment on above: Performed By: #### I NFLUAB #### [facility] [address] [place] [address] Dr. Ashlie Hills Urea nitrogen/Creatinine [Mass ratio] 31.2 mg/mg Normal [place] Comment on above: Performed By: #### I NFLUAB #### [facility] [address] [place] [address] Dr. Ashlie Hills CBC AUTO DIFFon 12-05-2022 BASO # 0.0 103/ul Normal 0.0-0.1 [place] Comment on above: Performed By: #### C BC #### [facility] [address] [place] [address] Dr. Ashlie Hills Basophils/100 WBC (Bld) 0.4 % Normal 0.2-2.0 [place] Comment on above: Performed By: #### C BC #### [facility] [address] [place] [address] Dr. Ashlie Hills EO # 0.0 103/ul Normal 0.0-0.7 [place] Comment on above: Performed By: #### C BC #### [facility] [address] [place] [address] Dr. Ashlie Hills Eosinophils/100 WBC (Bld) 0.0 % Critically low 0.9-7.0 [place] Comment on above: Performed By: #### C BC #### [facility] [address] [place] [address] Dr. Ashlie Hills Erythrocyte distribution width (RBC) [Ratio] 14.8 % Normal 11.0-15.0 [place] Comment on above: Performed By: #### C BC #### [facility] [address] [address] [address] Ashlie Hills Hematocrit (Bld) [Volume fraction] 49.9 % Critically high 36.0-48.0 [place] Comment on above: Performed By: #### C BC #### [facility] [address] [address] [address] Ashlie Hills Hemoglobin (Bld) [Mass/Vol] 15.7 g/dL Normal 12.0-16.0 [place] Comment on above: Performed By: #### C BC #### [facility] [address] [address] [address] Ashlie Hills IG # 0.04 10e3/ul Critically high 0.00-0.03 [facility] Comment on above: Performed By: #### C BC #### [facility] [address] [place] [address] Dr. Ashlie Hills IG % 0.5 % Normal 0.0-0.5 [place] Comment on above: Performed By: #### C BC #### [facility] [address] [address] [address] Ashlie Hills LYMPH # 1.1 103/ul Critically low 1.2-3.8 [facility] Comment on above: Performed By: #### C BC #### [facility] [address] [place] [address] Dr. Ashlie Hills Lymphocytes/100 WBC (Bld) 12.7 % Critically low 20.5-60.0 [place] Comment on above: Performed By: #### C BC #### [facility] [address] [place] [address] Dr. Ashlie Hills MANUAL DIFF REQ NO Normal [facility] Comment on above: Performed By: #### C BC #### [facility] [address] [place] [address] Dr. Ashlie Hills MCH (RBC) [Entitic mass] 28.1 pg Normal 26.7-34.0 [place] Comment on above: Performed By: #### C BC #### [facility] [address] [place] [address] Dr. Ashlie Hills MCHC (RBC) [Mass/Vol] 31.5 g/dL Normal 29.9-35.2 [facility] Comment on above: Performed By: #### C BC #### [facility] [address] [address] [address] Ashlie Hills MCV (RBC) [Entitic vol] 89.3 fL Normal 81.0-99.0 [facility] Comment on above: Performed By: #### C BC #### [facility] [address] [place] [address] Dr. Ashlie Hills MONO # 0.1 103/ul Critically low 0.3-0.8 [facility] Comment on above: Performed By: #### C BC #### [facility] [address] [place] [address] Dr. Ashlie Hills Monocytes/100 WBC (Bld) 1.3 % Critically low 1.7-12.0 [place] Comment on above: Performed By: #### C BC #### [facility] [address] [place] [address] Dr. Ashlie Hills NEUT # 7.2 103/ul Critically high 1.4-6.5 [facility] Comment on above: Performed By: #### C BC #### [facility] [address] [place] [address] Dr. Ashlie Hills Neutrophils/100 WBC (Bld) 85.1 % Critically high 43.0-75.0 [facility] Comment on above: Performed By: #### C BC #### [facility] [address] [address] [address] Ashlie Hills Platelet mean volume (Bld) [Entitic vol] 12.2 fL Normal 9.5-13.5 [facility] Comment on above: Performed By: #### C BC #### [facility] [address] [place] [address] Dr. Ashlie Hills PLT 116 103/ul Critically low 150-450 [facility] Comment on above: Performed By: #### C BC #### [facility] [address] [place] [address] Dr. Ashlie Hills RBC 5.59 106/ul Critically high 4.20-5.40 [facility] Comment on above: Performed By: #### C BC #### [facility] [id number] Ashlie Hills WBC 8.5 103/ul Normal 4.0-11.0 [place] Comment on above: Performed By: #### C BC #### [facility] [id number] Ashlie Hills CTA CHEST WO W [...] by: HATTIE GOFF Date: 2022-12-05 01:52 Normal [facility] MAGNESIUMon 12-05-2022 Magnesium [Mass/Vol] 2.1 mg/dL Normal 1.8-2.4 [place] Comment on above: Performed By: #### P OCGLUC #### [facility] [address] [address] [address] Ashlie Hills POINT OF CARE GLUCOSEon 11-08 Glucose [Mass/Vol] 293 mg/dL Critically high 74-106 [facility] Comment on above: Performed By: #### P OCGLUC #### [facility] [address] [address] [address] Ashlie Hills Glucose [Mass/Vol] 269 mg/dL Critically high -106 [facility] Comment on above: Performed By: #### P OCGLUC #### [facility] [address] [place] [address] Dr. Ashlie Hills Glucose [Mass/Vol] 223 mg/dL Critically high -106 [facility] Comment on above: Performed By: #### C VDAGS #### [facility] [address] [place] [address] Dr. Ashlie Hills PROF CHEM 8 (BAS METB)on Anion gap [Moles/Vol] 11.6 mmol/L Normal [place] Comment on above: Performed By: #### P OCGLUC #### [facility] [address] [place] [address] Dr. Ashlie Hills Calcium [Mass/Vol] 9.2 mg/dL Normal 8.5-10.1 [facility] Comment on above: Performed By: #### P OCGLUC #### [facility] [address] [place] [address] Dr. Ashlie Hills Chloride [Moles/Vol] 102 mmol/L Normal 98-107 [place] Comment on above: Performed By: #### P OCGLUC #### [facility] [address] [place] [address] Dr. Ashlie Hills CO2 [Moles/Vol] 28.7 mmol/L Normal 21.0-32.0 [facility] Comment on above: Performed By: #### P OCGLUC #### [facility] [address] [address] [address] Ashlie Hills Creatinine [Mass/Vol] 1.04 mg/dL Critically high 0.55-1.02 [place] Comment on above: Performed By: #### P OCGLUC #### [facility] [address] [address] [address] Ashlie Hills EGFR-AF CAMBODIAN >60 Normal >=60 [facility] Comment on above: Performed By: #### P OCGLUC #### [facility] [address] [address] [address] Ashlie Hills EGFR-NON AF CAMBODIAN 56 mL/min/1.73m2 Critically low >=60 [place] Comment on above: Performed By: #### P OCGLUC #### [facility] [address] [address] [address] Ashlie Hills Glucose [Mass/Vol] 231 mg/dL Critically high 74-[address] [facility] Comment on above: Performed By: #### P OCGLUC #### [facility] [address] [address] [address] Ashlie Hills Potassium [Moles/Vol] 4.3 mmol/L Normal 3.5-5.1 [place] Comment on above: Performed By: #### P OCGLUC #### [facility] [address] [address] [address] Ashlie Hills Sodium [Moles/Vol] 138 mmol/L Normal 136-145 [facility] Comment on above: Performed By: #### P OCGLUC #### [facility] [address] [address] [address] Ashlie Hills Urea nitrogen [Mass/Vol] 17.0 mg/dL Normal 7.0-18.0 [place] Comment on above: Performed By: #### P OCGLUC #### [facility] [address] [address] [address] Ashlie Hills Urea nitrogen/Creatinine [Mass ratio] 16.3 mg/mg Normal [place] Comment on above: Performed By: #### P OCGLUC #### [facility] [address] [place] [address] Dr. Ashlie Hills RESPIRATORY PANEL PLUSon Adenovirus Not detected Normal NOT DETECTED [facility] Comment on above: Performed By: #### C VDAGS #### [facility] [address] [place] [address] Dr. Ashlie Shaffer. Parapertusis Not detected Normal NOT DETECTED [facility] Comment on above: Performed By: #### C VDAGS #### [facility] [address] [place] [address] Dr. Ashlie Shaffer. Pertussis Not detected Normal NOT DETECTED [facility] Comment on above: Performed By: #### C VDAGS #### [facility] [address] [place] [address] Dr. Ashlie Hills Chlamydia Pneumoniae Not detected Normal NOT DETECTED The [facility] Comment on above: Performed By: #### C VDAGS #### [facility] [address] [place] [address] Dr. Ashlie Hills Coronavirus 229E Not detected Normal NOT DETECTED [facility] Comment on above: Performed By: #### C VDAGS #### [facility] [address] [place] [address] Dr. Ashlie Hills Coronavirus HKU1 Not detected Normal NOT DETECTED The [facility] Comment on above: Performed By: #### C VDAGS #### [facility] [address] [place] [address] Dr. Ashlie Hills Coronavirus NL63 Not detected Normal NOT DETECTED The [facility] Comment on above: Performed By: #### C VDAGS #### [facility] [address] [place] [address] Dr. Ashlie Hills Coronavirus OC43 Not detected Normal NOT DETECTED The [facility] Comment on above: Performed By: #### C VDAGS #### [facility] [address] [place] [address] Dr. Ashlie Hills Influenza A H1 Not detected Normal NOT DETECTED [facility] Comment on above: Performed By: #### C VDAGS #### [facility] [address] [place] [address] Dr. Ashlie Hills Influenza A H1 2009 Not detected Normal NOT DETECTED [facility] Comment on above: Performed By: #### C VDAGS #### [facility] [address] [address] [address] Ashlie Hills Influenza A H3 Not detected Normal NOT DETECTED [facility] Comment on above: Performed By: #### C VDAGS #### [facility] [address] [address] [address] Ashlie Hills Influenza B Not detected Normal NOT DETECTED [facility] Comment on above: Performed By: #### C VDAGS #### [facility] [address] [address] [address] Ashlie Hills Metapneumovirus Not detected Normal NOT DETECTED [facility] Comment on above: Performed By: #### C VDAGS #### [facility] [address] [place] [address] Dr. Ashlie Hills Mycoplas. Pneumoniae Not detected Normal NOT DETECTED The [facility] Comment on above: Performed By: #### C VDAGS #### [facility] [address] [place] [address] Dr. Ashlie Hills Parainfluenza 1 Not detected Normal NOT DETECTED [facility] Comment on above: Performed By: #### C VDAGS #### [facility] [address] [place] [address] Dr. Ashlie Hills Parainfluenza 2 Not detected Normal NOT DETECTED [facility] Comment on above: Performed By: #### C VDAGS #### [facility] [address] [place] [address] Dr. Ashlie Hills Parainfluenza 3 Detected Abnormal NOT DETECTED The [facility] Comment on above: Performed By: #### C VDAGS #### [facility] [address] [address] [address] Ashlie Hills Parainfluenza 4 Not detected Normal NOT DETECTED [facility] Comment on above: Performed By: #### C VDAGS #### [facility] [address] [address] [address] Ashlie Hills Rhino/Enterovirus Not detected Normal NOT DETECTED The [facility] Comment on above: Performed By: #### C VDAGS #### [facility] [address] [place] [address] Dr. Ashlie iHlls RP2 Header 1 RESPIRATORY PANEL: VIRUSES Normal [place] Comment on above: Performed By: #### C VDAGS #### [facility] [address] [place] [address] Dr. Ashlie Hills RP2 Header 2 RESPIRATORY PANEL: BACTERIA Normal [place] Comment on above: Performed By: #### C VDAGS #### [facility] [address] [place] [address] Dr. Ashlie Hills RSV Not detected Normal NOT DETECTED [facility] Comment on above: Performed By: #### C VDAGS #### [facility] [address] [place] [address] Dr. Ashlie Hills SARS-CoV-2 (COVID-19) RNA MADDY+probe Ql (Unsp spec) Not detected Normal NOT DETECTED [place] Comment on above: Performed By: #### C VDAGS #### [facility] [address] [place] [address] Dr. Ashlie Hills XR CHEST 1 Von [...] by: MARYANNE POWER Date: 2022-12-04 22:23 Normal [place] BLOOD GASES BTYon 12-04-2022 02 MODE ROOM AIR Normal [facility] Comment on above: Performed By: #### C BC #### [facility] [address] [place] [address] Dr. Ashlie Hills ALLENS TEST Positive Normal [place] Comment on above: Performed By: #### C BC #### [facility] [address] [address] [address] Ashlie Hills Base excess Calc (Bld) [Moles/Vol] 5.4 mmol/L Critically high -2.0-2.0 [place] Comment on above: Performed By: #### C BC #### [facility] [address] [place] [address] Dr. Ashlie Hills BIPAP PRESSURE Normal [facility] Comment on above: Performed By: #### C BC #### [facility] [address] [place] [address] Dr. Ashlie Hills CPAP Normal [place] Comment on above: Performed By: #### C BC #### [facility] [address] [place] [address] Dr. Ashlie Hills FIO2 [facility] Comment on above: Performed By: #### C BC #### [facility] [address] [place] [address] Dr. Ashlie Hills HCO3 (Bld) [Moles/Vol] 30.8 mmol/L Critically high 22.0-26.0 [place] Comment on above: Performed By: #### C BC #### [facility] [address] [place] [address] Dr. Ashlie Hills LPM Normal [place] Comment on above: Performed By: #### C BC #### [facility] [address] [place] [address] Dr. Ashlie Hills MINUTE VOLUME Normal [facility] Comment on above: Performed By: #### C BC #### [facility] [address] [place] [address] Dr. Ashlie Hills Oxygen (Bld) [Partial pressure] 46.3 mm[Hg] Critically low 80.0-100.0 [place] Comment on above: Performed By: #### C BC #### [facility] [address] [place] [address] Dr. Ashlie Hills Oxygen saturation in Blood 83.9 % Critically low 95.0-100.0 [place] Comment on above: Performed By: #### C BC #### [facility] [address] [address] [address] Ashlie Hills PCO2 54.2 mmHg Critically high 35.0-45.0 [facility] Comment on above: Performed By: #### C BC #### [facility] [address] [place] [address] Dr. Ashlie Hills PEEP [facility] Comment on above: Performed By: #### C BC #### [facility] [address] [place] [address] Dr. Ashlie Hills pH (Bld) 7.363 [pH] Normal 7.350-7.450 [place] Comment on above: Performed By: #### C BC #### [facility] [address] [place] [address] Dr. Ashlie Hills [facility] Comment on above: Performed By: #### C BC #### [facility] [address] [place] [address] Dr. Ashlie Hills PS [facility] Comment on above: Performed By: #### C BC #### [facility] [address] [place] [address] Dr. Ashlie Hills PUNCTURE SITE LR [facility] Comment on above: Performed By: #### C BC #### [facility] [address] [place] [address] Dr. Ashlie Hills RATE [facility] Comment on above: Performed By: #### C BC #### [facility] [address] [place] [address] Dr. Ashlie Hills VENT MODE [facility] Comment on above: Performed By: #### C BC #### [facility] [address] [place] [address] Dr. Ashlie Hills [place] [facility] Comment on above: Performed By: #### C BC #### [facility] [address] [place] [address] Dr. Ashlie Hills BNPon 12-04-2022 Natriuretic peptide B (Bld) [Mass/Vol] 76.0 pg/mL Normal <=900.0 [place] Comment on above: Performed By: #### P OCGLUC #### [facility] [address] [address] [address] Ashlie Hills CBC AUTO DIFFon 12-04-2022 BASO # 0.1 103/ul Normal 0.0-0.1 [place] Comment on above: Performed By: #### C BC #### [facility] [address] [place] [address] Dr. Ashlie Hills Basophils/100 WBC (Bld) 0.6 % Normal 0.2-2.0 [place] Comment on above: Performed By: #### C BC #### [facility] [address] [place] [address] Dr. Ashlie Hills EO # 0.2 103/ul Normal 0.0-0.7 [place] Comment on above: Performed By: #### C BC #### [facility] [address] [place] [address] Dr. Ashlie Hills Eosinophils/100 WBC (Bld) 1.9 % Normal 0.9-7.0 [place] Comment on above: Performed By: #### C BC #### [facility] [address] [place] [address] Dr. Ashlie Hills Erythrocyte distribution width (RBC) [Ratio] 15.0 % Normal 11.0-15.0 [place] Comment on above: Performed By: #### C BC #### [facility] [address] [place] [address] Dr. Ashlie Hills Hematocrit (Bld) [Volume fraction] 49.1 % Critically high 36.0-48.0 [place] Comment on above: Performed By: #### C BC #### [facility] [address] [place] [address] Dr. Ashlie Hills Hemoglobin (Bld) [Mass/Vol] 15.6 g/dL Normal 12.0-16.0 [place] Comment on above: Performed By: #### C BC #### [facility] [address] [place] [address] Dr. Ashlie Hills IG # 0.02 10e3/ul Normal 0.00-0.03 [place] Comment on above: Performed By: #### C BC #### [facility] [address] [place] [address] Dr. Ashlie Hills IG % 0.2 % Normal 0.0-0.5 [place] Comment on above: Performed By: #### C BC #### [facility] [address] [place] [address] Dr. Ashlie Hills LYMPH # 2.8 103/ul Normal 1.2-3.8 [facility] Comment on above: Performed By: #### C BC #### [facility] [address] [place] [address] Dr. Ashlie Hills Lymphocytes/100 WBC (Bld) 29.9 % Normal 20.5-60.0 [place] Comment on above: Performed By: #### C BC #### [facility] [address] [place] [address] Dr. Ashlie Hills MANUAL DIFF REQ NO Normal [facility] Comment on above: Performed By: #### C BC #### [facility] [address] [place] [address] Dr. Ashlie Hills MCH (RBC) [Entitic mass] 28.5 pg Normal 26.7-34.0 [facility] Comment on above: Performed By: #### C BC #### [facility] [address] [place] [address] Dr. Ashlie Hills MCHC (RBC) [Mass/Vol] 31.8 g/dL Normal 29.9-35.2 [facility] Comment on above: Performed By: #### C BC #### [facility] [address] [place] [address] Dr. Ashlie Hills MCV (RBC) [Entitic vol] 89.8 fL Normal 81.0-99.0 [facility] Comment on above: Performed By: #### C BC #### [facility] [address] [place] [address] Dr. Ashlie Hills MONO # 1.0 103/ul Critically high 0.3-0.8 [facility] Comment on above: Performed By: #### C BC #### [facility] [address] [place] [address] Dr. Ashlie Hills Monocytes/100 WBC (Bld) 10.6 % Normal 1.7-12.0 [place] Comment on above: Performed By: #### C BC #### [facility] [address] [place] [address] Dr. Ashlie Hills NEUT # 5.3 103/ul Normal 1.4-6.5 [place] Comment on above: Performed By: #### C BC #### [facility] [address] [place] [address] Dr. Ashlie Hills Neutrophils/100 WBC (Bld) 56.8 % Normal 43.0-75.0 [place] Comment on above: Performed By: #### C BC #### [facility] [address] [place] [address] Dr. Ashlie Hills Platelet mean volume (Bld) [Entitic vol] 12.5 fL Normal 9.5-13.5 [place] Comment on above: Performed By: #### C BC #### [facility] [address] [place] [address] Dr. Ashlie Hills PLT 109 103/ul Critically low 150-450 [facility] Comment on above: Performed By: #### C BC #### [facility] [address] [place] [address] Dr. Ashlie Hills RBC 5.47 106/ul Critically high 4.20-5.40 [facility] Comment on above: Performed By: #### C BC #### [facility] [address] [place] [address] Dr. Ashlie Hills WBC 9.4 103/ul Normal 4.0-11.0 [place] Comment on above: Performed By: #### C BC #### [facility] [address] [place] [address] Dr. Ashlie Hills PROF 14(COMP METB)on 023 Albumin [Mass/Vol] 2.9 g/dL Critically low 3.4-5.0 [facility] Comment on above: Performed By: #### C BC #### [facility] [address] [place] [address] Dr. Ashlie Hills Albumin/Globulin [Mass ratio] 0.6 {ratio} Normal [place] Comment on above: Performed By: #### C BC #### [facility] [address] [place] [address] Dr. Ashlie Hills ALP [Catalytic activity/Vol] 64 U/L Normal 46-116 [place] Comment on above: Performed By: #### C BC #### [facility] [address] [place] [address] Dr. Ashlie Hills ALT [Catalytic activity/Vol] 16 U/L Normal 14-59 [place] Comment on above: Performed By: #### C BC #### [facility] [address] [place] [address] Dr. Ashlie Hills Anion gap [Moles/Vol] 9.6 mmol/L Normal [place] Comment on above: Performed By: #### C BC #### [facility] [address] [place] [address] Dr. Ashlie Hills AST [Catalytic activity/Vol] 16 U/L Normal 15-37 [place] Comment on above: Performed By: #### C BC #### [facility] [address] [place] [address] Dr. Ashlie Hills Bilirubin [Mass/Vol] 0.5 mg/dL Normal 0.2-1.0 [place] Comment on above: Performed By: #### C BC #### [facility] [address] [place] [address] Dr. Ashlie Hills Calcium [Mass/Vol] 8.7 mg/dL Normal 8.5-10.1 [facility] Comment on above: Performed By: #### C BC #### [facility] [address] [place] [address] Dr. Ashlie Hills Chloride [Moles/Vol] 103 mmol/L Normal 98-107 [place] Comment on above: Performed By: #### C BC #### [facility] [address] [place] [address] Dr. Ashlie Hills CO2 [Moles/Vol] 30.7 mmol/L Normal 21.0-32.0 [facility] Comment on above: Performed By: #### C BC #### [facility] [address] [address] [address] Ashlie Hilsl Creatinine [Mass/Vol] 0.96 mg/dL Normal 0.55-1.02 [place] Comment on above: Performed By: #### C BC #### [facility] [address] [address] [address] Ashlie Hills EGFR-AF CAMBODIAN >60 Normal >=60 [facility] Comment on above: Performed By: #### C BC #### [facility] [address] [address] [address] Ashlie Hills EGFR-NON AF CAMBODIAN >60 Normal >=60 [place] Comment on above: Performed By: #### C BC #### [facility] [address] [address] [address] Ashlie Hills Globulin (S) [Mass/Vol] 4.7 g/dL Normal [place] Comment on above: Performed By: #### C BC #### [facility] [address] [address] [address] Ashlie Hills Glucose [Mass/Vol] 170 mg/dL Critically high 74-106 [facility] Comment on above: Performed By: #### C BC #### [facility] [address] [address] [address] Ashlie Hills Potassium [Moles/Vol] 4.3 mmol/L Normal 3.5-5.1 [facility] Comment on above: Performed By: #### C BC #### [facility] [address] [address] [address] Ashlie Hills Protein [Mass/Vol] 7.6 g/dL Normal 6.4-8.[address] [facility] Comment on above: Performed By: #### C BC #### [facility] [address] [address] [address] Ashlie Hills Sodium [Moles/Vol] 139 mmol/L Normal 136-145 [facility] Comment on above: Performed By: #### C BC #### [facility] [address] [place] [address] Dr. Ashlie Hills Urea nitrogen [Mass/Vol] 16.0 mg/dL Normal 7.0-18.0 [place] Comment on above: Performed By: #### C BC #### [facility] [address] [place] [address] Dr. Ashlie Hills Urea nitrogen/Creatinine [Mass ratio] 16.7 mg/mg Normal [place] Comment on above: Performed By: #### C BC #### [facility] [address] [place] [address] Dr. Ashlie Hills SYMPTOMATIC COVID-19 ANTIGEN on 12-04-2022 EUA Statement SEE BELOW Normal [facility] Comment on above: Result Comment: This [...] sooner. Performed By: #### C VDAGS #### [facility] [address] [place] [address] Dr. Ashlie Hills SARS-CoV-2 (COVID-19) RNA MADDY+probe Ql (Unsp spec) Negative Normal NEGATIVE [place] Comment on above: Performed By: #### C VDAGS #### [facility] [address] [place] [address] Dr. Ashlie Hills TROPONIN, HIGH SENSITIVITYon 12-04-2022 HSTROP 8.9 pg/mL Normal 4.0-51.3 [place] Comment on above: Result Comment: CUT- OFF POINTS HAVE BEEN ESTABLISHED BASED ON THE FOURTH UNIVERSAL DEFINITIONS OF MYOCARDIAL INFARCTION. THE UPPER REFERENCE LIMIT (URL) OF TROPONIN, DEFINED THE 99TH PERCENTILE OF cTnI DISTRIBUTION IN A REFERENCE POPULATION, HAS BEEN CONFIRMED THE DECISION THRESHOLD FOR CA DIAGNOSIS. Performed By: #### P OCGLUC #### [facility] [address] [place] [address] Dr. Ashlie Hills MICROALBUMIN, RAND URon - mALB 35.8 mg/dL Critically high <=30.0 [facility] Comment on above: Performed By: #### C VDAGS #### [facility] [address] [place] [address] Dr. Ashlie Hills UA RANDOM W/MICROSCOPICon BACTERIA NONE SEEN Normal NONE SEEN [place] Comment on above: Performed By: #### C VDAGS #### [facility] [facility] [address] [place] [address] Dr. Ashlie Hills Bilirubin Ql (U) Negative Normal NEGATIVE [facility] Comment on above: Performed By: #### C VDAGS #### [facility] [address] [place] [address] Dr. Ashlie Hills CAST SEEN Abnormal NONE SEEN [place] Comment on above: Performed By: #### C VDAGS #### [facility] [address] [place] [address] Dr. Ashlie Hills Clarity (U) CLEAR Normal CLEAR The [facility] Comment on above: Performed By: #### C VDAGS #### [facility] [address] [place] [address] Dr. Ashlie Hills Color (U) YELLOW Normal YELLOW The [facility] Comment on above: Performed By: #### C VDAGS #### [facility] [address] [place] [address] Dr. Ashlie Hills Crystals LM Nom (Urine sed) NONE SEEN Normal NONE SEEN [place] Comment on above: Performed By: #### C VDAGS #### [facility] [address] [place] [address] Dr. Ashlie Hills Epithelial cells LM Ql (Urine sed) MODERATE Abnormal NONE SEEN /RARE The [facility] Comment on above: Performed By: #### C VDAGS #### [facility] [address] [address] [address] Ashlie iHlls Glucose Ql (U) Negative Normal NEGATIVE [facility] Comment on above: Performed By: #### C VDAGS #### [facility] [address] [place] [address] Dr. Ashlie Hills Hemoglobin Ql (U) TRACE-INTACT Abnormal NEGATIVE [place] Comment on above: Performed By: #### C VDAGS #### [facility] [address] [place] [address] Dr. Ashlie Hills Ketones Ql (U) Negative Normal NEGATIVE The [facility] Comment on above: Performed By: #### C VDAGS #### [facility] [address] [place] [address] Dr. Ashlie Hills LEUKOCYTES Negative Normal NEGATIVE [place] Comment on above: Performed By: #### C VDAGS #### [facility] [address] [place] [address] Dr. Ashlie Hills MUCOUS NONE SEEN Normal NONE SEEN [place] Comment on above: Performed By: #### C VDAGS #### [facility] [address] [place] [address] Dr. Ashlie Hills Nitrite Ql (U) Negative Normal NEGATIVE [facility] Comment on above: Performed By: #### C VDAGS #### [facility] [address] [place] [address] Dr. Ashlie Hills pH (U) 5.0 [pH] Normal 5-9 [place] Comment on above: Performed By: #### C VDAGS #### [facility] [address] [place] [address] Dr. Ashlie Hills RBC 0-2 Normal 0-2 [place] Comment on above: Performed By: #### C VDAGS #### [facility] [address] [place] [address] Dr. Ashlie Hills SPEC GRAVITY 1.030 Abnormal 1.005-<=1.025 [facility] Comment on above: Performed By: #### C VDAGS #### [facility] [address] [address] [address] Ashlie Hills UA PROTEIN 100 mg/dl Abnormal NEGATIVE/ TRACE The [facility] Comment on above: Performed By: #### C VDAGS #### [facility] [address] [address] [address] Ashlie Hills Urobilinogen Qn (U) 0.2 {Little'U}/dL Normal 0.2 - 1. 0 [place] Comment on above: Performed By: #### C VDAGS #### [facility] [address] [address] [address] Ashlie Hills WBC NONE SEEN Normal NONE SEEN The [facility] Comment on above: Performed By: #### C VDAGS #### [facility] [address] [place] [address] Dr. Ashlie Hills CBC AUTO DIFFon 11-22-2022 BASO # 0.0 103/ul Normal 0.0-0.1 [place] Comment on above: Performed By: #### C BC #### [facility] [address] [place] [address] Dr. Ashlie Hills Basophils/100 WBC (Bld) 0.3 % Normal 0.2-2.0 [place] Comment on above: Performed By: #### C BC #### [facility] [address] [place] [address] Dr. Ashlie Hills EO # 0.4 103/ul Normal 0.0-0.7 The [facility] Comment on above: Performed By: #### C BC #### [facility] [address] [place] [address] Dr. Ashlie Hills Eosinophils/100 WBC (Bld) 3.0 % Normal 0.9-7.0 The [facility] Comment on above: Performed By: #### C BC #### [facility] [address] [place] [address] Dr. Ashlie Hills Erythrocyte distribution width (RBC) [Ratio] 15.3 % Critically high 11.0-15.0 [place] Comment on above: Performed By: #### C BC #### [facility] [address] [address] [address] Ashlie Hills Hematocrit (Bld) [Volume fraction] 52.4 % Critically high 36.0-48.0 [place] Comment on above: Performed By: #### C BC #### [facility] [address] [address] [address] Ashlie Hills Hemoglobin (Bld) [Mass/Vol] 16.8 g/dL Critically high 12.0-16.0 [place] Comment on above: Performed By: #### C BC #### [facility] [address] [place] [address] Dr. Ashlie Hills IG # 0.04 10e3/ul Critically high 0.00-0.03 [facility] Comment on above: Performed By: #### C BC #### [facility] [address] [place] [address] Dr. Ashlie Hills IG % 0.3 % Normal 0.0-0.5 [place] Comment on above: Performed By: #### C BC #### [facility] [address] [address] [address] Ashlie Hills LYMPH # 4.5 103/ul Critically high 1.2-3.8 [facility] Comment on above: Performed By: #### C BC #### [facility] [address] [place] [address] Dr. Ashlie Hills Lymphocytes/100 WBC (Bld) 33.2 % Normal 20.5-60.0 [place] Comment on above: Performed By: #### C BC #### [facility] [address] [address] [address] Ashlie Hills MANUAL DIFF REQ NO Normal [facility] Comment on above: Performed By: #### C BC #### [facility] [address] [place] [address] Dr. Ashlie Hills MCH (RBC) [Entitic mass] 28.0 pg Normal 26.7-34.0 [place] Comment on above: Performed By: #### C BC #### [facility] [address] [address] [address] Ashlie Hills MCHC (RBC) [Mass/Vol] 32.1 g/dL Normal 29.9-35.2 [place] Comment on above: Performed By: #### C BC #### [facility] [address] [address] [address] Ashlie Hills MCV (RBC) [Entitic vol] 87.3 fL Normal 81.0-99.0 [place] Comment on above: Performed By: #### C BC #### [facility] [address] [address] [address] Ashlie Hills MONO # 0.8 103/ul Normal 0.3-0.8 [place] Comment on above: Performed By: #### C BC #### [facility] [address] [place] [address] Dr. Ashlie Hills Monocytes/100 WBC (Bld) 5.7 % Normal 1.7-12.0 [place] Comment on above: Performed By: #### C BC #### [facility] [address] [address] [address] Ashlie Hills NEUT # 7.8 103/ul Critically high 1.4-6.5 [facility] Comment on above: Performed By: #### C BC #### [facility] [address] [place] [address] Dr. Ashlie Hills Neutrophils/100 WBC (Bld) 57.5 % Normal 43.0-75.0 The [facility] Comment on above: Performed By: #### C BC #### [facility] [address] [address] [address] Ashlie Hills Platelet mean volume (Bld) [Entitic vol] 12.0 fL Normal 9.5-13.5 The [facility] Comment on above: Performed By: #### C BC #### [facility] [address] [address] [address] Ashlie Hills PLT 152 103/ul Normal 150-450 The [facility] Comment on above: Performed By: #### C BC #### [facility] [address] [address] [address] Ashlie Hills RBC 6.00 106/ul Critically high 4.20-5.40 [facility] Comment on above: Performed By: #### C BC #### [facility] [address] [address] [address] Ashlie Hills WBC 13.6 103/ul Critically high 4.0-11.0 [facility] Comment on above: Performed By: #### C BC #### [facility] [address] [place] [address] Dr. Ashlie Hills LIPID PROFILEon 11-22-2022 CHOL-HDL RATIO NORM SEE BELOW Normal [place] Comment on above: Result Comment: 3.3 - 4.4 LOW RISK 4.4 - 7.1 AVERAGE RISK 7.1 - 11.0 MODERATE RISK >11.0 HIGH RISK Performed By: #### C BC #### [facility] [address] [place] [address] Dr. Ashlie Hills Cholesterol [Mass/Vol] 139 mg/dL Normal <=200 [place] Comment on above: Performed By: #### C BC #### [facility] [address] [place] [address] Dr. Ashlie Hills Cholesterol in HDL [Mass/Vol] 35 mg/dL Critically low 40-60 [place] Comment on above: Performed By: #### C BC #### [facility] [address] [place] [address] Dr. Ashlie Hills Cholesterol in LDL [Mass/Vol] 67.4 mg/dL Normal [place] Comment on above: Performed By: #### C BC #### [facility] [address] [address] [address] Ashlie Hills Cholesterol.total/Ch olesterol in HDL [Mass ratio] 4.0 {ratio} Normal [place] Comment on above: Performed By: #### C BC #### [facility] [address] [place] [address] Dr. Ashlie Hills HDL NORMAL > or = 60 mg/dl - LOW CARDIOVASCULAR RISK <40 mg/dl - HIGH CARDIOVASCULAR RISK Normal The [facility] Comment on above: Performed By: #### C BC #### [facility] [address] [address] [address] Ashlie Hills LDL CALC NORMAL SEE BELOW Normal [facility] Comment on above: Result Comment: <100 mg/dl OPTIMAL 100 - 129 mg/dl NEAR OR ABOVE OPTIMAL 130 - 159 mg/dl BORDERLINE HIGH 160 - 189 mg/dl HIGH >190 mg/dl VERY HIGH Performed By: #### C BC #### [facility] [address] [address] [address] Ashlie Hills Triglyceride [Mass/Vol] 183 mg/dL Critically high <=150 [place] Comment on above: Performed By: #### C BC #### [facility] [address] [address] [address] Ashlie Hills VLDL CALC 36.6 mg/dL Normal The [facility] Comment on above: Performed By: #### C BC #### [facility] [address] [address] [address] Ashlie Hills MG MAMM SCREEN 3D ALEX CADon 11-22-2022 MG MAMM SCREEN 3D ALEX CAD Patient: MITZI MACIAS Exam Date: 11/22/2022 : 1970 Gender:F Ordering : [facility] Admission #: [id number] Family : Order #: [id number] CLICK HERE TO VIEW EXAM RADIOLOGY REPORT [...] unknown cancer at age 75. LOCATION: The [facility] BREAST COMPOSITION: Almost entirely fatty. [...] Ivan M.D. on 11/22/2022 at 12:09 Normal [place] PROF 14(COMP METB)on 023 Albumin [Mass/Vol] 3.0 g/dL Critically low 3.4-5.0 Th e [facility] Comment on above: Performed By: #### C BC #### [facility] [address] [place] [address] Dr. Ashlie Hills Albumin/Globulin [Mass ratio] 0.6 {ratio} Normal [place] Comment on above: Performed By: #### C BC #### [facility] [address] [place] [address] Dr. Ashlie Hills ALP [Catalytic activity/Vol] 68 U/L Normal 46-116 [place] Comment on above: Performed By: #### C BC #### [facility] [address] [place] [address] Dr. Ashlie Hills ALT [Catalytic activity/Vol] 14 U/L Normal 14-59 [place] Comment on above: Performed By: #### C BC #### [facility] [address] [place] [address] Dr. Ashlie Hills Anion gap [Moles/Vol] 12.1 mmol/L Normal [place] Comment on above: Performed By: #### C BC #### [facility] [address] [place] [address] Dr. Ashlie Hills AST [Catalytic activity/Vol] 9 U/L Critically low 15-37 [place] Comment on above: Performed By: #### C BC #### [facility] [address] [place] [address] Dr. Ashlie Hills Bilirubin [Mass/Vol] 0.4 mg/dL Normal 0.2-1.0 [place] Comment on above: Performed By: #### C BC #### [facility] [address] [place] [address] Dr. Ashlie Hills Calcium [Mass/Vol] 9.0 mg/dL Normal 8.5-10.1 [facility] Comment on above: Performed By: #### C BC #### [facility] [address] [place] [address] Dr. Ashlie Hills Chloride [Moles/Vol] 105 mmol/L Normal 98-107 [place] Comment on above: Performed By: #### C BC #### [facility] [address] [place] [address] Dr. Ashlie Hills CO2 [Moles/Vol] 30.7 mmol/L Normal 21.0-32.0 [facility] Comment on above: Performed By: #### C BC #### [facility] [address] [place] [address] Dr. Ashlie Hills Creatinine [Mass/Vol] 0.77 mg/dL Normal 0.55-1.02 [place] Comment on above: Performed By: #### C BC #### [facility] [address] [place] [address] Dr. Ashlie Hills EGFR-AF CAMBODIAN >60 Normal >=60 [facility] Comment on above: Performed By: #### C BC #### [facility] [address] [place] [address] Dr. Ashlie Hills EGFR-NON AF CAMBODIAN >60 Normal >=60 [place] Comment on above: Performed By: #### C BC #### [facility] [address] [place] [address] Dr. Ashlie Hills Globulin (S) [Mass/Vol] 4.8 g/dL Normal [place] Comment on above: Performed By: #### C BC #### [facility] [address] [place] [address] Dr. Ashlie Hills Glucose [Mass/Vol] 162 mg/dL Critically high 74-[address] [facility] Comment on above: Performed By: #### C BC #### [facility] [address] [address] [address] Ashlie Hills Potassium [Moles/Vol] 3.8 mmol/L Normal 3.5-5.1 [place] Comment on above: Performed By: #### C BC #### [facility] [address] [address] [address] Ashlie Hills Protein [Mass/Vol] 7.8 g/dL Normal 6.4-8.2 [facility] Comment on above: Performed By: #### C BC #### [facility] [address] [place] [address] Dr. Ashlie Hills Sodium [Moles/Vol] 144 mmol/L Normal 136-145 [facility] Comment on above: Performed By: #### C BC #### [facility] [address] [place] [address] Dr. Ashlie Hills Urea nitrogen [Mass/Vol] 24.0 mg/dL Critically high 7.0-18.0 [place] Comment on above: Performed By: #### C BC #### [facility] [address] [place] [address] Dr. Ashlie Hills Urea nitrogen/Creatinine [Mass ratio] 31.2 mg/mg Normal [place] Comment on above: Performed By: #### C BC #### [facility] [address] [place] [address] Dr. Ashlie Hills CBC AUTO DIFFon 10-05-2022 BASO # 0.1 103/ul Normal 0.0-0.1 [place] Comment on above: Performed By: #### C BC #### [facility] [address] [place] [address] Dr. Ashlie Hills Basophils/100 WBC (Bld) 0.6 % Normal 0.2-2.0 [place] Comment on above: Performed By: #### C BC #### [facility] [address] [place] [address] Dr. Ashlie Hills EO # 0.3 103/ul Normal 0.0-0.7 [place] Comment on above: Performed By: #### C BC #### [facility] [address] [address] [address] Ashlie Hills Eosinophils/100 WBC (Bld) 2.1 % Normal 0.9-7.0 [place] Comment on above: Performed By: #### C BC #### [facility] [address] [place] [address] Dr. Ashlie Hills Erythrocyte distribution width (RBC) [Ratio] 15.9 % Critically high 11.0-15.0 [place] Comment on above: Performed By: #### C BC #### [facility] [address] [place] [address] Dr. Ashlie Hills Hematocrit (Bld) [Volume fraction] 51.8 % Critically high 36.0-48.0 [place] Comment on above: Performed By: #### C BC #### [facility] [address] [place] [address] Dr. Ashlie Hills Hemoglobin (Bld) [Mass/Vol] 16.6 g/dL Critically high 12.0-16.0 [place] Comment on above: Performed By: #### C BC #### [facility] [address] [place] [address] Dr. Ashlie Hills IG # 0.03 10e3/ul Normal 0.00-0.03 [place] Comment on above: Performed By: #### C BC #### [facility] [address] [place] [address] Dr. Ashlie Hills IG % 0.2 % Normal 0.0-0.5 [place] Comment on above: Performed By: #### C BC #### [facility] [address] [place] [address] Dr. Ashlie Hills LYMPH # 3.9 103/ul Critically high 1.2-3.8 [facility] Comment on above: Performed By: #### C BC #### [facility] [address] [place] [address] Dr. Ashlie Hills Lymphocytes/100 WBC (Bld) 31.7 % Normal 20.5-60.0 [place] Comment on above: Performed By: #### C BC #### [facility] [address] [place] [address] Dr. Ashlie Hills MANUAL DIFF REQ NO Normal [facility] Comment on above: Performed By: #### C BC #### [facility] [address] [place] [address] Dr. Ahslie Hills MCH (RBC) [Entitic mass] 27.9 pg Normal 26.7-34.0 [place] Comment on above: Performed By: #### C BC #### [facility] [address] [place] [address] Dr. Ashlie Hills MCHC (RBC) [Mass/Vol] 32.0 g/dL Normal 29.9-35.2 [place] Comment on above: Performed By: #### C BC #### [facility] [address] [place] [address] Dr. Ashlie Hills MCV (RBC) [Entitic vol] 87.1 fL Normal 81.0-99.0 [place] Comment on above: Performed By: #### C BC #### [facility] [address] [place] [address] Dr. Ashlie Hills MONO # 0.7 103/ul Normal 0.3-0.8 [place] Comment on above: Performed By: #### C BC #### [facility] [address] [place] [address] Dr. Ashlie Hills Monocytes/100 WBC (Bld) 5.8 % Normal 1.7-12.0 [facility] Comment on above: Performed By: #### C BC #### [facility] [address] [place] [address] Dr. Ashlie Hills NEUT # 7.3 103/ul Critically high 1.4-6.5 [facility] Comment on above: Performed By: #### C BC #### [facility] [address] [place] [address] Dr. Ashlie Hills Neutrophils/100 WBC (Bld) 59.6 % Normal 43.0-75.0 [facility] Comment on above: Performed By: #### C BC #### [facility] [address] [place], [place] [address] Dr. Ashlie Hills Platelet mean volume (Bld) [Entitic vol] 11.7 fL Normal 9.5-13.5 [place] Comment on above: Performed By: #### C BC #### [facility] [address] [place], [place] [address] Dr. Ashlie Hills PLT 117 103/ul Critically low 150-450 [facility] Comment on above: Performed By: #### C BC #### [facility] [address] [place], [place] [address] Dr. Ashlie Hills RBC 5.95 106/ul Critically high 4.20-5.40 [facility] Comment on above: Performed By: #### C BC #### [facility] [address] [address] [address] Ashlie Hills WBC 12.3 103/ul Critically high 4.0-11.0 [facility] Comment on above: Performed By: #### C BC #### [facility] [address] [place] [address] ABD/PELV W CONon [...] left renal stone. Electronically authenticated by: RICCO NEERAJ Date: 2022-10-05 13:13 Normal [facility] ER URINE PROFILEon 3 Bilirubin Ql (U) Negative Normal NEGATIVE [facility] Comment on above: Performed By: #### P OCGLUC #### [facility] [address] [address] [address] Ashlie Hills Clarity (U) CLEAR Normal CLEAR [place] Comment on above: Performed By: #### P OCGLUC #### [facility] [address] [address] [address] Ashlie Hills Color (U) YELLOW Normal YELLOW [place] Comment on above: Performed By: #### P OCGLUC #### [facility] [address] [place] [address] Dr. Ashlie HOBBS A micrscopic examination will be performed if indicated. Normal [facility] Comment on above: Performed By: #### P OCGLUC #### [facility] [address] [address] [address] Ashlie Hills Glucose Ql (U) Negative Normal NEGATIVE [facility] Comment on above: Performed By: #### P OCGLUC #### [facility] [address] [address] [address] Ashlie Hills Hemoglobin Ql (U) Negative Normal NEGATIVE [facility] Comment on above: Performed By: #### P OCGLUC #### [facility] [address] [address] [address] Ashlie Hills Ketones Ql (U) Negative Normal NEGATIVE [facility] Comment on above: Performed By: #### P OCGLUC #### [facility] [address] [address] [address] Ashlie Hills LEUKOCYTES Negative Normal NEGATIVE [place] Comment on above: Performed By: #### P OCGLUC #### [facility] [address] [address] [address] Ashlie Hills Nitrite Ql (U) Negative Normal NEGATIVE [facility] Comment on above: Performed By: #### P OCGLUC #### [facility] [address] [address] [address] Ashlie Hills pH (U) 6.0 [pH] Normal 5-9 [place] Comment on above: Performed By: #### P OCGLUC #### [facility] [address] [address] [address] Ashlie Hills Protein (U) [Mass/Vol] 100 mg/dL Abnormal NEGATIVE/ TRACE [place] Comment on above: Performed By: #### P OCGLUC #### [facility] [address] [address] [address] Ashlie Hills SPEC GRAVITY 1.010 Normal 1.005-<=1.025 [facility] Comment on above: Performed By: #### P OCGLUC #### [facility] [address] [place] [address] Dr. Ashlie Hills UR MICRO IND INDICATED Normal [place] Comment on above: Performed By: #### P OCGLUC #### [facility] [address] [address] [address] Ashlie Hills Urobilinogen Qn (U) 1.0 {Little'U}/dL Normal 0.2 - 1. 0 [place] Comment on above: Performed By: #### P OCGLUC #### [facility] [address] [address] [address] Ashlie Hills LIPASEon 10-05-2022 Lipase [Catalytic activity/Vol] 1771.0 U/L Critically high 73.0-393.0 [place] Comment on above: Performed By: #### C BC #### [facility] [address] [address] [address] Ashlie Hills PREG HCG QUALon 10-05-2022 , QUAL Negative Normal NEGATIVE [facility] Comment on above: Performed By: #### P OCGLUC #### [facility] [address] [place] [address] Dr. Ashlie Hills PROF 14(COMP METB)on 023 Albumin [Mass/Vol] 3.2 g/dL Critically low 3.4-5.0 Th e [facility] Comment on above: Performed By: #### C BC #### [facility] [address] [address] [address] Ashlie Hills Albumin/Globulin [Mass ratio] 0.7 {ratio} Normal [place] Comment on above: Performed By: #### C BC #### [facility] [address] [address] [address] Ashlie Hills ALP [Catalytic activity/Vol] 70 U/L Normal 46-116 [place] Comment on above: Performed By: #### C BC #### [facility] [address] [place] [address] Dr. Ashlie Hills ALT [Catalytic activity/Vol] 11 U/L Critically low 14-59 [place] Comment on above: Performed By: #### C BC #### [facility] [address] [place] [address] Dr. Ashlie Hills Anion gap [Moles/Vol] 10.3 mmol/L Normal [place] Comment on above: Performed By: #### C BC #### [facility] [address] [place] [address] Dr. Ashlie Hills AST [Catalytic activity/Vol] 11 U/L Critically low 15-37 [place] Comment on above: Performed By: #### C BC #### [facility] [address] [place] [address] Dr. Ashlie Hills Bilirubin [Mass/Vol] 0.9 mg/dL Normal 0.2-1.0 [place] Comment on above: Performed By: #### C BC #### [facility] [address] [place] [address] Dr. Ashlie Hills Calcium [Mass/Vol] 9.3 mg/dL Normal 8.5-10.1 [facility] Comment on above: Performed By: #### C BC #### [facility] [address] [place] [address] Dr. Ashlie Hills Chloride [Moles/Vol] 105 mmol/L Normal 98-107 [place] Comment on above: Performed By: #### C BC #### [facility] [address] [address] [address] Ashlie Hills CO2 [Moles/Vol] 30.6 mmol/L Normal 21.0-32.0 [facility] Comment on above: Performed By: #### C BC #### [facility] [address] [address] [address] Ashlie Hills Creatinine [Mass/Vol] 0.62 mg/dL Normal 0.55-1.02 The [facility] Comment on above: Performed By: #### C BC #### [facility] [address] [address] [address] Ashlie Hills EGFR-AF CAMBODIAN >60 Normal >=60 [facility] Comment on above: Performed By: #### C BC #### [facility] [address] [place] [address] Dr. Ashlie Hills EGFR-NON AF CAMBODIAN >60 Normal >=60 The [facility] Comment on above: Performed By: #### C BC #### [facility] [address] [place] [address] Dr. Ashlie Hills Globulin (S) [Mass/Vol] 4.6 g/dL Normal [place] Comment on above: Performed By: #### C BC #### [facility] [address] [place] [address] Dr. Ashlie Hills Glucose [Mass/Vol] 85 mg/dL Normal 74-[address] [facility] Comment on above: Performed By: #### C BC #### [facility] [address] [place] [address] Dr. Ashlie Hills Potassium [Moles/Vol] 3.9 mmol/L Normal 3.5-5.1 The [facility] Comment on above: Performed By: #### C BC #### [facility] [address] [place] [address] Dr. Ashlie Hills Protein [Mass/Vol] 7.8 g/dL Normal 6.4-8.[address] [facility] Comment on above: Performed By: #### C BC #### [facility] [address] [address] [address] Ashlie Hills Sodium [Moles/Vol] 142 mmol/L Normal 136-145 [facility] Comment on above: Performed By: #### C BC #### [facility] [address] [place] [address] Dr. Ashlie Hills Urea nitrogen [Mass/Vol] 12.0 mg/dL Normal 7.0-18.0 [place] Comment on above: Performed By: #### C BC #### [facility] [address] [place] [address] Dr. Ashlie Hills Urea nitrogen/Creatinine [Mass ratio] 19.4 mg/mg Normal [place] Comment on above: Performed By: #### C BC #### [facility] [address] [place] [address] Dr. Ashlie Hills URINE MICROSCOPIC ONLYon BACTERIA TRACE Abnormal NONE SEEN [place] Comment on above: Performed By: #### P OCGLUC #### [facility] [address] [place] [address] Dr. Ashlie Hills Bacteria identified Cx Nom (U) NOT INDICATED Normal [place] Comment on above: Performed By: #### P OCGLUC #### [facility] [address] [place] [address] Dr. Ashlie Hills CAST NONE SEEN Normal NONE SEEN [place] Comment on above: Performed By: #### P OCGLUC #### [facility] [address] [place] [address] Dr. Ashlie Hills Crystals LM Nom (Urine sed) NONE SEEN Normal NONE SEEN [place] Comment on above: Performed By: #### P OCGLUC #### [facility] [address] [place] [address] Dr. Ashlie Hills Epithelial cells LM Ql (Urine sed) MODERATE Abnormal NONE SEEN /RARE The [facility] Comment on above: Performed By: #### P OCGLUC #### [facility] [address] [place] [address] Dr. Ashlie Hills MUCOUS NONE SEEN Normal NONE SEEN [place] Comment on above: Performed By: #### P OCGLUC #### [facility] [address] [place] [address] Dr. Ashlie Hills RBC 0-2 Normal 0-2 The [facility] Comment on above: Performed By: #### P OCGLUC #### [facility] [address] [place] [address] Dr. Ashlie Hills WBC 0-2 Abnormal NONE SEEN The [facility] Comment on above: Performed By: #### P OCGLUC #### [facility] [address] [place] [address] Dr. Ashlie Hills Covid-19 PCR ([facility])on 09-06 SARS-CoV-2 (COVID-19) RNA MADDY+probe Ql (Unsp spec) Detected Abnormal NOT DETECTED The [facility] Comment on above: Result Comment: This test is not yet approved or cleared by the [place] FDA. When there are no FDA-approved or cleared tests available, and other criteria are met, FDA can make tests available under an emergency access mechanism called an Emergency Use Authorization (EUA). The EUA for this test is supported by the [employer] Manager of Health and Human Service's declaration that [...] used). Performed By: #### C VDAGS #### [facility] [address] [place] [address] Dr. Ashlie Hills INFLUENZA A AND B AGon 09-21 INFLUANE SEE BELOW Normal The [facility] Comment on above: Result Comment: Nega tive for Flu A protein angiten. Infection due to Flu A cannot be ruled out. Flu A angiten in the sample may be below the detection limit of the test. Performed By: #### I NFLUAB #### [facility] [address] [place] [address] Dr. Ashlie Hills INFLUBNEGH SEE BELOW Normal [place] Comment on above: Result Comment: Nega tive for Flu B protein antigen. Infection due to Flu B cannot be ruled out. Flu B antigen in the sample may be below the detection limit of the test. Performed By: #### I NFLUAB #### [facility] [address] [place] [address] Dr. Ashlie Hills INFLUENZA A AG Negative Normal NEGATIVE SEE COMMENT The [facility] Comment on above: Performed By: #### I NFLUAB #### [facility] [id number] Ashlie Hills INFLUENZA B AG Negative Normal NEGATIVE SEE COMMENT The [facility] Comment on above: Performed By: #### I NFLUAB #### [facility] [address] [address] [address] ABD/PELV W CONon [...] to at least 10/21/2018, unchanged. https://www.ncbi.nlm .nih.gov/pmc/article s/[email or web address]/ Electronically authenticated by: COLLIN HUERTAS Date: 2022-07-27 14:56 Normal The [facility] CREATININEon 07-18-2022 Creatinine [Mass/Vol] 0.81 mg/dL Normal 0.55-1.02 [place] Comment on above: Performed By: #### C BC #### [facility] [address] [place] [address] Dr. Ashlie Hills EGFR-AF CAMBODIAN >60 Normal >=60 [facility] Comment on above: Performed By: #### C BC #### [facility] [address] [place], [place] [address] [address]. Ashlie Hills EGFR-NON AF CAMBODIAN >60 Normal >=60 [place] Comment on above: Performed By: #### C BC #### [facility] [address] [place], [place] [address] LOW EXT W [...] by: PATRICIA IVAN Date: 2022-07-18 14:58 Normal [place] XR KNEE LT 1_2 Von 3 XR [...] HATTIE BAUTISTA Date: 2022-07-18 12:00 Normal The [facility] Covid-19 PCR ([facility])on 06-09 SARS-CoV-2 (COVID-19) RNA MADDY+probe Ql (Unsp spec) Not detected Normal NOT DETECTED The [facility] Comment on above: Result Comment: This test is not yet approved or cleared by the [place] FDA. When there are no FDA-approved or cleared tests available, and other criteria are met, FDA can make tests available under an emergency access mechanism called an Emergency Use Authorization (EUA). The EUA for this test is supported by the [employer] Manager of Health and Human Service's (HHS's) declaration [...] SARS-CoV-2. Performed By: #### C BC #### [facility] [address] [address] [address] Ashlie Hills INFLUENZA A AND B AGon 07-06 INFLUBANNER SEE BELOW Normal [place] Comment on above: Result Comment: Nega tive for Flu A protein angiten. Infection due to Flu A cannot be ruled out. Flu A angiten in the sample may be below the detection limit of the test. Performed By: #### C BC #### [facility] [address] [address] [address] Ashlie Hills [facility] SEE BELOW Normal [place] Comment on above: Result Comment: Nega tive for Flu B protein antigen. Infection due to Flu B cannot be ruled out. Flu B antigen in the sample may be below the detection limit of the test. Performed By: #### C BC #### [facility] [address] [address] [address] Ashlie Hills INFLUENZA A AG Negative Normal NEGATIVE SEE COMMENT [place] Comment on above: Performed By: #### C BC #### [facility] [address] [address] [address] Ashlie Hills INFLUENZA B AG Negative Normal NEGATIVE SEE COMMENT [place] Comment on above: Performed By: #### C BC #### [facility] [id number] Ashlie Hills POINT OF CARE GLUCOSEon 10- Glucose [Mass/Vol] 108 mg/dL Critically high 74-[address] [facility] Comment on above: Performed By: #### C BC #### [facility] [address] [address] [address] Ashlie Hills RAGHU by IFAon 03-07-2022 Antinuclear Antibodies, IFA Negative Normal [place] Comment on above: Result Comment: Nega tive <1:80 Borderline 1:80 Positive >1:80 ICAP nomenclature: AC-0 For more information about Hep-2 cell patterns use ANApatterns.org, the official website for the International Consensus on Antinuclear Antibody (RAGHU) Patterns (ICAP). Performed By: #### A NAIFA #### [facility] [address] [place] [address] Dr. Ashlie Hills IMMUNOFIXATION (TREVON), URINEo n 03-07-2022 TREVON Interpretation:U Comment Normal [place] Comment on above: Result Comment: No m onoclonality detected. Performed By: #### C BC #### [facility] [address] [place] [address] Dr. Ashlie Hills IMMUNOFIXATION(TREVON),PROTEIN ELEC(PE),FREon 03-07-2022 Albumin [Mass/Vol] 3.0 g/dL Normal 2.9-4.[address] [facility] Comment on above: Performed By: #### I NFLUAB #### [facility] [address] [place] [address] Dr. Ashlie Hills Albumin/Globulin [Mass ratio] 0.8 {ratio} Normal 0.7-1.7 [place] Comment on above: Performed By: #### I NFLUAB #### [facility] [address] [address] [address] Ashlie Hills Llbrf-8-Mbsiexdv 0.3 g/dL Normal 0.0-0.4 [facility] Comment on above: Performed By: #### I NFLUAB #### [facility] [address] [address] [address] Ashlie Hills Osljg-4-Lafbaols 1.0 g/dL Normal 0.4-1.0 [facility] Comment on above: Performed By: #### I NFLUAB #### [facility] [address] [address] [address] Ashlie Hills Beta Globulin 1.8 g/dL Critically high 0.7-1.3 [facility] Comment on above: Performed By: #### I NFLUAB #### [facility] [address] [place] [address] Dr. Ashlie Hills Free Enfield Lt Chains,S 45.2 mg/L Critically high 3.3-19.4 [place] Comment on above: Performed By: #### I NFLUAB #### [facility] [address] [place] [address] Dr. Ashlie Hills Free Lambda Lt Chains,S 40.3 mg/L Critically high 5.7-26.3 [place] Comment on above: Performed By: #### I NFLUAB #### [facility] [address] [place] [address] Dr. Ashlie Hills Gamma Globulin 0.8 g/dL Normal 0.4-1.8 [facility] Comment on above: Performed By: #### I NFLUAB #### [facility] [address] [address] [address] Ashlie Hills Globulin (S) [Mass/Vol] 3.9 g/dL Normal 2.2-3.9 [place] Comment on above: Performed By: #### I NFLUAB #### [facility] [address] [place] [address] Dr. Ashlie Hills Immunofixation Result, Serum Comment Normal [place] Comment on above: Result Comment: No m onoclonality detected. Performed By: #### I NFLUAB #### [facility] [address] [address] [address] Ashlie Hills Immunoglobulin A, Qn, Serum 776 mg/dL Critically high 87-352 [place] Comment on above: Performed By: #### I NFLUAB #### [facility] [address] [address] [address] Ashlie Hills Immunoglobulin G, Qn, Serum 955 mg/dL Normal 586-1602 [place] Comment on above: Performed By: #### I NFLUAB #### [facility] [address] [address] [address] Ashlie Hills Immunoglobulin M, Qn, Serum 39 mg/dL Normal 26-217 [place] Comment on above: Performed By: #### I NFLUAB #### [facility] [address] [place] [address] Dr. Ashlie Hills Enfield/Lambda Ratio, S 1.12 Normal 0.26-1.65 [place] Comment on above: Performed By: #### I NFLUAB #### [facility] [address] [address] [address] Ashlie Hills M-Bright Not Observed Normal Not Observed [facility] Comment on above: Performed By: #### I NFLUAB #### [facility] [address] [place] [address] Dr. Ashlie Hills PDF . Normal [place] Comment on above: Performed By: #### I NFLUAB #### [facility] [address] [address] [address] Ashlie Hills Please note: Comment Normal [place] Comment on above: Result Comment: Prot ein electrophoresis scan will follow via computer, mail, or road inspector delivery. Performed By: #### I NFLUAB #### [facility] [address] [address] [address] Ashlie Hills Protein [Mass/Vol] 6.9 g/dL Normal 6.0-8.5 [facility] Comment on above: Performed By: #### I NFLUAB #### [facility] [address] [address] [address] Ashlie Hills C-PEPTIDE, SERUMon 2 C-Peptide, Serum 3.1 ng/mL Normal 1.1-4.4 [facility] Comment on above: Result Comment: C-Pe ptide reference interval is for fasting patients. Performed By: #### C PEPT #### [facility] [address] [address] [address] Ashlie Hills HEP B SURFACE ANTIGEN SCREEN on 03-04-2022 HBsAg Screen Negative Normal Negative [place] Comment on above: Performed By: #### C BC #### [facility] [address] [address] [address] Ashlie Hills HEPATITIS C VIRUS AB W/ REFL EX QUANTon 03-04-2022 HCV AB <0.1 Normal 0.0-0.9 [place] Comment on above: Performed By: #### I NFLUAB #### [facility] [address] [address] [address] Ashlie Hills Interpretation: Comment Normal [facility] Comment on above: Result Comment: Nega tive Not infected with HCV, unless recent infection is suspected or other evidence exists to indicate HCV infection. Performed By: #### I NFLUAB #### [facility] [address] [address] [address] Ashlie Hills MICROALBUMIN/ CREATININE RAT IOon 03-04-2022 Albumin, Urine 367.4 ug/mL Normal Not Estab. [facility] Comment on above: Performed By: #### C BC #### [facility] [address] [place] [address] Dr. Ashlie Hills Albumin/ Creatinine Ratio 239 mg/g creat Critically high 0-29 [place] Comment on above: Result Comment: Norm al: 0 - 29 Moderately increased: 30 - 300 Severely increased: >300 Performed By: #### C BC #### [facility] [address] [place] [address] Dr. Ashlie Hills Creatinine, Urine 153.9 mg/dL Normal Not Estab. The [facility] Comment on above: Performed By: #### C BC #### [facility] [address] [address] [address] Ashlie Hills VIT D 25-OH LABCORPon 2021 Vitamin D, 25-Hydroxy <4.0 Critically low 30.0-100.0 [place] Comment on above: Result Comment: Graciela min D deficiency has been defined by the [place] of [employer] and an Endocrine Society practice guideline as a level of serum 25-OH vitamin D less than 20 ng/mL (1,2). The Endocrine Society went on to further define vitamin D insufficiency as a level between 21 and 29 ng/mL (2). 1. IOM ([place] of [employer]). 2010. Dietary reference intakes for calcium and D. [place]: The National Academies Press. 2. Lynda MF, Keely OLIVEROS, Leandra LOPEZ, et al. Evaluation, treatment, and prevention of vitamin D deficiency: an Endocrine Society clinical practice guideline. JCEM. 2010; 96(7):1911-30. Performed By: #### C BC #### [facility] [address] [address] [address] Ashlie Hills GLYCOHEMOGLOBIN A1Con 2021 ADA RECOMMENDATION SEE BELOW Normal [facility] Comment on above: Result Comment: ADA RECOMMENDED LIMIT 4.0 - 6.0 ADA THERAPEUTIC TARGET < 7.0 ACTION SUGGESTED > 7.0 Performed By: #### C VDAGS #### [facility] [address] [address] [address] Ashlie Hills Glucose [Mass/Vol] 295 mg/dL Normal [facility] Comment on above: Performed By: #### C VDAGS #### [facility] [address] [address] [address] Ashlie Hills HbA1c (Bld) [Mass fraction] 11.9 % Critically high 4.5-6.2 [place] Comment on above: Performed By: #### C VDAGS #### [facility] [address] [address] [address] Ashlie Hills HEMOGRAM AND PLATELon 2021 Hematocrit (Bld) [Volume fraction] 56.3 % Critically high 36.0-48.0 [place] Comment on above: Performed By: #### C VDAGS #### [facility] [address] [place] [address] Dr. Ashlie Hills Hemoglobin (Bld) [Mass/Vol] 18.0 g/dL Critically high 12.0-16.0 [facility] Comment on above: Performed By: #### C VDAGS #### [facility] [address] [place] [address] Dr. Ashlie Hills MCH (RBC) [Entitic mass] 29.5 pg Normal 26.7-34.0 [facility] Comment on above: Performed By: #### C VDAGS #### [facility] [address] [place] [address] Dr. Ashlie Hills MCHC (RBC) [Mass/Vol] 32.0 g/dL Normal 29.9-35.2 The [facility] Comment on above: Performed By: #### C VDAGS #### [facility] [address] [place] [address] Dr. Ashlie Hills MCV (RBC) [Entitic vol] 92.1 fL Normal 81.0-99.0 [facility] Comment on above: Performed By: #### C VDAGS #### [facility] [address] [place] [address] Dr. Ashlie Hills PLT 123 103/ul Critically low 150-450 [facility] Comment on above: Performed By: #### C VDAGS #### [facility] [address] [place] [address] Dr. Ashlie Hills RBC 6.11 106/ul Critically high 4.20-5.40 [facility] Comment on above: Performed By: #### C VDAGS #### [facility] [address] [place] [address] Dr. Ashlie Hills WBC 16.4 103/ul Critically high 4.0-11.0 [facility] Comment on above: Performed By: #### C VDAGS #### [facility] [address] [place] [address] Dr. Ashlie Hills LIPID PROFILEon 08-26-2022 CHOL-HDL RATIO NORM SEE BELOW Normal [place] Comment on above: Result Comment: 3.3 - 4.4 LOW RISK 4.4 - 7.1 AVERAGE RISK 7.1 - 11.0 MODERATE RISK >11.0 HIGH RISK Performed By: #### C VDAGS #### [facility] [address] [address] [address] Ashlie Hills Cholesterol [Mass/Vol] 159 mg/dL Normal <=200 [place] Comment on above: Performed By: #### C VDAGS #### [facility] [address] [address] [address] Ashlie Hills Cholesterol in HDL [Mass/Vol] 40 mg/dL Normal 40-60 [place] Comment on above: Performed By: #### C VDAGS #### [facility] [address] [address] [address] Ashlie Hills Cholesterol in LDL [Mass/Vol] 81.8 mg/dL Normal [place] Comment on above: Performed By: #### C VDAGS #### [facility] [address] [address] [address] Ashlie Hills Cholesterol.total/Ch olesterol in HDL [Mass ratio] 4.0 {ratio} Normal [place] Comment on above: Performed By: #### C VDAGS #### [facility] [address] [address] [address] Ashlie Hills HDL NORMAL > or = 60 mg/dl - LOW CARDIOVASCULAR RISK <40 mg/dl - HIGH CARDIOVASCULAR RISK Normal [place] Comment on above: Performed By: #### C VDAGS #### [facility] [address] [address] [address] Ashlie Hills LDL CALC NORMAL SEE BELOW Normal [facility] Comment on above: Result Comment: <100 mg/dl OPTIMAL 100 - 129 mg/dl NEAR OR ABOVE OPTIMAL 130 - 159 mg/dl BORDERLINE HIGH 160 - 189 mg/dl HIGH >190 mg/dl VERY HIGH Performed By: #### C VDAGS #### [facility] [address] [address] [address] Ashlie Hills Triglyceride [Mass/Vol] 186 mg/dL Critically high <=150 [place] Comment on above: Performed By: #### C VDAGS #### [facility] [address] [place] [address] Dr. Ashlie Hills VLDL CALC 37.2 mg/dL Normal [place] Comment on above: Performed By: #### C VDAGS #### [facility] [address] [place] [address] Dr. Ashlie Hills RENAL FUNCTION PANELon 03-03 Albumin [Mass/Vol] 3.1 g/dL Critically low 3.4-5.0 Th e [facility] Comment on above: Performed By: #### C BC #### [facility] [address] [place] [address] Dr. Ashlie Hills Calcium [Mass/Vol] 9.2 mg/dL Normal 8.5-10.1 [facility] Comment on above: Performed By: #### C BC #### [facility] [address] [place] [address] Dr. Ashlie Hills Chloride [Moles/Vol] 102 mmol/L Normal 98-107 [place] Comment on above: Performed By: #### C BC #### [facility] [address] [place] [address] Dr. Ashlie Hills CO2 [Moles/Vol] 31.9 mmol/L Normal 21.0-32.0 [facility] Comment on above: Performed By: #### C BC #### [facility] [address] [place] [address] Dr. Ashlie Hills Creatinine [Mass/Vol] 0.68 mg/dL Normal 0.55-1.02 [place] Comment on above: Performed By: #### C BC #### [facility] [address] [place] [address] Dr. Ashlie Hills EGFR-AF CAMBODIAN >60 Normal >=60 [facility] Comment on above: Performed By: #### C BC #### [facility] [address] [place] [address] Dr. Ashlie Hills EGFR-NON AF CAMBODIAN >60 Normal >=60 [place] Comment on above: Performed By: #### C BC #### [facility] [address] [address] [address] Ashlie Hills Glucose [Mass/Vol] 131 mg/dL Critically high 74-106 [facility] Comment on above: Performed By: #### C BC #### [facility] [address] [address] [address] Ashlie Hills Phosphate [Mass/Vol] 4.0 mg/dL Normal 2.6-4.7 [place] Comment on above: Performed By: #### C BC #### [facility] [address] [place] [address] Dr. Ashlie Hills Potassium [Moles/Vol] 4.0 mmol/L Normal 3.5-5.1 [place] Comment on above: Performed By: #### C BC #### [facility] [address] [place] [address] Dr. Ashlie Hills Sodium [Moles/Vol] 141 mmol/L Normal 136-145 [facility] Comment on above: Performed By: #### C BC #### [facility] [address] [place] [address] Dr. Ashlie Hills Urea nitrogen [Mass/Vol] 17.0 mg/dL Normal 7.0-18.0 [place] Comment on above: Performed By: #### C BC #### [facility] [address] [place] [address] Dr. Ashlie Hills UA RANDOM W/MICROSCOPICon BACTERIA NONE SEEN Normal NONE SEEN [place] Comment on above: Performed By: #### I NFLUAB #### [facility] [address] [place] [address] Dr. Ashlie Hills Bilirubin Ql (U) Negative Normal NEGATIVE [facility] Comment on above: Performed By: #### I NFLUAB #### [facility] [address] [place] [address] Dr. Ashlie Hills CAST NONE SEEN Normal NONE SEEN [place] Comment on above: Performed By: #### I NFLUAB #### [facility] [address] [address] [address] Ashlie Hills Clarity (U) CLEAR Normal CLEAR The [facility] Comment on above: Performed By: #### I NFLUAB #### [facility] [address] [address] [address] Ashlie Hills Color (U) YELLOW Normal YELLOW The [facility] Comment on above: Performed By: #### I NFLUAB #### [facility] [address] [address] [address] Ashlie Hills Crystals LM Nom (Urine sed) NONE SEEN Normal NONE SEEN [place] Comment on above: Performed By: #### I NFLUAB #### [facility] [address] [place] [address] Dr. Ashlie Hills Epithelial cells LM Ql (Urine sed) FEW Abnormal NONE SEEN /RARE The [facility] Comment on above: Performed By: #### I NFLUAB #### [facility] [address] [place] [address] Dr. Ashlie Hills Glucose Ql (U) Negative Normal NEGATIVE [facility] Comment on above: Performed By: #### I NFLUAB #### [facility] [address] [place] [address] Dr. Ashlie Hills Hemoglobin Ql (U) Negative Normal NEGATIVE [facility] Comment on above: Performed By: #### I NFLUAB #### [facility] [address] [place] [address] Dr. Ashlie Hills Ketones Ql (U) Negative Normal NEGATIVE [facility] Comment on above: Performed By: #### I NFLUAB #### [facility] [address] [place] [address] Dr. Ashlie Hills LEUKOCYTES Negative Normal NEGATIVE The [facility] Comment on above: Performed By: #### I NFLUAB #### [facility] [address] [place] [address] Dr. Ashlie Hills MUCOUS NONE SEEN Normal NONE SEEN The [facility] Comment on above: Performed By: #### I NFLUAB #### [facility] [address] [place], [place] [id number] Dr. Ashlie Hills Nitrite Ql (U) Negative Normal NEGATIVE [facility] Comment on above: Performed By: #### I NFLUAB #### [facility] [address] [place] [address] Dr. Ashlie Hills pH (U) 5.5 [pH] Normal 5-9 [place] Comment on above: Performed By: #### I NFLUAB #### [facility] [address] [place] [address] Dr. Ashlie Hills RBC 0-2 Normal 0-2 [place] Comment on above: Performed By: #### I NFLUAB #### [facility] [address] [place] [address] Dr. Ashlie Hills SPEC GRAVITY >=1.030 Abnormal 1.005-<=1.025 [facility] Comment on above: Performed By: #### I NFLUAB #### [facility] [address] [place] [address] Dr. Ashlie Hills UA PROTEIN 100 mg/dl Abnormal NEGATIVE/ TRACE The [facility] Comment on above: Performed By: #### I NFLUAB #### [facility] [address] [place] [address] Dr. Ashlie Hills Urobilinogen Qn (U) 0.2 {Little'U}/dL Normal 0.2 - 1. 0 [place] Comment on above: Performed By: #### I NFLUAB #### [facility] [address] [place] [address] Dr. Ashlie Hills WBC NONE SEEN Normal NONE SEEN The [facility] Comment on above: Performed By: #### I NFLUAB #### [facility] [address] [place] [address] Dr. Ashlie Hills URIC ACID SERUMon 03-03-2022 Urate [Mass/Vol] 5.0 mg/dL Normal 2.6-6.0 [facility] Comment on above: Performed By: #### I NFLUAB #### [facility] [address] [place] [address] Dr. Ashlie Hills URINE T PROTEIN CREAT RATIOo n 03-03-2022 Protein (U) [Mass/Vol] 77.9 mg/dL Critically high <=12.0 The [facility] Comment on above: Performed By: #### C VDAGS #### [facility] [address] [place] [address] Dr. Ashlie Hills UR PROT CREAT RAT 0.44 Normal [facility] Comment on above: Performed By: #### C VDAGS #### [facility] [address] [place] [address] Dr. Ashlie Hills URINE CREAT 175.15 mg/dL Normal 20.00-300.00 [facility] Comment on above: Performed By: #### C VDAGS #### [facility] [address] [place] [address] Dr. Ashlie Hills CULTURE URINEon 12-25-2021 CULTURE URINE Culture Observations: GREATER THAN TWO ORGANISMS PRESENT, HEAVILY MIXED. PLEASE RESUBMIT CLEAN CATCH MID-STREAM URINE IF CLINICALLY INDICATED. Normal The [facility] Comment on above: Performed By: #### I NFLUAB #### [facility] [address] [place] [address] Dr. Ashlie Hills CBC AUTO DIFFon 12-24-2021 BASO # 0.1 103/ul Normal 0.0-0.1 [place] Comment on above: Performed By: #### C BC #### [facility] [address] [place] [address] Dr. Ashlie Hills Basophils/100 WBC (Bld) 0.5 % Normal 0.2-2.0 The [facility] Comment on above: Performed By: #### C BC #### [facility] [address] [place] [address] Dr. Ashlie Hills EO # 0.4 103/ul Normal 0.0-0.7 The [facility] Comment on above: Performed By: #### C BC #### [facility] [address] [place] [address] Dr. Ashlie Hills Eosinophils/100 WBC (Bld) 2.4 % Normal 0.9-7.0 The [facility] Comment on above: Performed By: #### C BC #### [facility] [address] [address] [address] Ashlie Hills Erythrocyte distribution width (RBC) [Ratio] 14.1 % Normal 11.0-15.0 [place] Comment on above: Performed By: #### C BC #### [facility] [address] [address] [address] Ashlie Hills Hematocrit (Bld) [Volume fraction] 55.9 % Critically high 36.0-48.0 [place] Comment on above: Performed By: #### C BC #### [facility] [address] [place] [address] Dr. Ashlie Hills Hemoglobin (Bld) [Mass/Vol] 17.9 g/dL Critically high 12.0-16.0 [place] Comment on above: Performed By: #### C BC #### [facility] [address] [place] [address] Dr. Ashlie Hills IG # 0.06 10e3/ul Critically high 0.00-0.03 [facility] Comment on above: Performed By: #### C BC #### [facility] [address] [address] [address] Ashlie Hills IG % 0.4 % Normal 0.0-0.5 [place] Comment on above: Performed By: #### C BC #### [facility] [address] [address] [address] Ashlie Hills LYMPH # 5.8 103/ul Critically high 1.2-3.8 [facility] Comment on above: Performed By: #### C BC #### [facility] [address] [place] [address] Dr. Ashlie Hills Lymphocytes/100 WBC (Bld) 35.4 % Normal 20.5-60.0 [place] Comment on above: Performed By: #### C BC #### [facility] [address] [address] [address] Ashlie Hills MANUAL DIFF REQ NO Normal [facility] Comment on above: Performed By: #### C BC #### [facility] [address] [address] [address] Ashlie Hills MCH (RBC) [Entitic mass] 29.4 pg Normal 26.7-34.0 The [facility] Comment on above: Performed By: #### C BC #### [facility] [address] [place] [address] Dr. Ashlie Hills MCHC (RBC) [Mass/Vol] 32.0 g/dL Normal 29.9-35.2 The [facility] Comment on above: Performed By: #### C BC #### [facility] [address] [place] [address] Dr. Ashlie Hills MCV (RBC) [Entitic vol] 91.8 fL Normal 81.0-99.0 [place] Comment on above: Performed By: #### C BC #### [facility] [address] [place] [address] Dr. Ashlie Hills MONO # 0.8 103/ul Normal 0.3-0.8 [place] Comment on above: Performed By: #### C BC #### [facility] [address] [place] [address] Dr. Ashlie Hills Monocytes/100 WBC (Bld) 4.8 % Normal 1.7-12.0 [place] Comment on above: Performed By: #### C BC #### [facility] [address] [place] [address] Dr. Ashlie Hills NEUT # 9.3 103/ul Critically high 1.4-6.5 [facility] Comment on above: Performed By: #### C BC #### [facility] [address] [place] [address] Dr. Ashlie Hills Neutrophils/100 WBC (Bld) 56.5 % Normal 43.0-75.0 The [facility] Comment on above: Performed By: #### C BC #### [facility] [address] [place] [address] Dr. Ashlie Hills Platelet mean volume (Bld) [Entitic vol] 12.9 fL Normal 9.5-13.5 The [facility] Comment on above: Performed By: #### C BC #### [facility] [address] [place], [place] [address] Dr. Ashlie Hills PLT 127 103/ul Critically low 150-450 [facility] Comment on above: Performed By: #### C BC #### [facility] [address] [place], [place] [address] Dr[address] Ashlie Hills RBC 6.09 106/ul Critically high 4.20-5.40 [facility] Comment on above: Performed By: #### C BC #### [facility] [address] [place], [place] [address] Dr. Ashlie Hills WBC 16.4 103/ul Critically high 4.0-11.0 [facility] Comment on above: Performed By: #### C BC #### [facility] [address] [place], [place] [address] ABD/PELVIS WO CONon [...] Severe right hip degenerative change. Normal The [facility] ER URINE PROFILEon 2 Bilirubin Ql (U) Negative Normal NEGATIVE [facility] Comment on above: Performed By: #### EVONNE DIAZ #### [facility] [address] [place] [address] Dr. Ashlie Hills Clarity (U) CLEAR Normal CLEAR The [facility] Comment on above: Performed By: #### Tracey LYMAN UMICRO #### [facility] [address] [place] [address] Dr. Ashlie Hills Color (U) DK. ORANGE Abnormal YELLOW The [facility] Comment on above: Performed By: #### MADELINE DIAZRO #### [facility] [address] [place] [address] Dr. Ashlie Hills ERUAHD A micrscopic examination will be performed if indicated. Normal The [facility] Comment on above: Performed By: #### EVONNE DIAZ #### [facility] [address] [place] [address] Dr. Ashlie Hills Glucose Ql (U) 250 mg/dl Abnormal NEGATIVE [facility] Comment on above: Performed By: #### Tracey LYMAN UMICRO #### [facility] [address] [place] [address] Dr. Ashlie Hills Hemoglobin Ql (U) Negative Normal NEGATIVE [facility] Comment on above: Performed By: #### Tracey LYMAN UMICRO #### [facility] [address] [place] [address] Dr. Ashlie Hills Ketones Ql (U) Negative Normal NEGATIVE [facility] Comment on above: Performed By: #### Tracey LYMAN UMICRO #### [facility] [address] [place] [address] Dr. Ashlie Hills LEUKOCYTES Negative Normal NEGATIVE [place] Comment on above: Performed By: #### Tracey LYMAN UMICRO #### [facility] [address] [place] [address] Dr. Ahslie Hills Nitrite Ql (U) Negative Normal NEGATIVE [facility] Comment on above: Performed By: #### Tracey LYMAN UMICRO #### [facility] [address] [place] [address] Dr. Ashlie Hills pH (U) 5.0 [pH] Normal 5-9 [place] Comment on above: Performed By: #### MADELINE DIAZRO #### [facility] [address] [place] [address] Dr. Ashlie Hills Protein (U) [Mass/Vol] 100 mg/dL Abnormal NEGATIVE/ TRACE The [facility] Comment on above: Performed By: #### Tracey LYMAN UMICRO #### [facility] [address] [place] [address] Dr. Ashlie Hills SPEC GRAVITY >=1.030 Abnormal 1.005-<=1.025 [facility] Comment on above: Performed By: #### Tracey LYMAN UMICRO #### [facility] [address] [place] [address] Dr. Ashlie Hills UR MICRO IND INDICATED Normal [place] Comment on above: Performed By: #### EVONNE DIAZ #### [facility] [address] [place] [address] Dr. Ashlie Hills Urobilinogen Qn (U) 1.0 {Little'U}/dL Normal 0.2 - 1. 0 [place] Comment on above: Performed By: #### EVONNE DIAZ #### [facility] [address] [place] [address] Dr. Ashlie Hills PROF CHEM 8 (BAS METB)on Anion gap [Moles/Vol] 12.1 mmol/L Normal [place] Comment on above: Performed By: #### I NFLUAB #### [facility] [address] [place] [address] Dr. Ashlie Hills Calcium [Mass/Vol] 9.0 mg/dL Normal 8.5-10.1 [facility] Comment on above: Performed By: #### I NFLUAB #### [facility] [address] [place] [address] Dr. Ashlie Hills Chloride [Moles/Vol] 101 mmol/L Normal 98-107 The [facility] Comment on above: Performed By: #### I NFLUAB #### [facility] [address] [place] [address] Dr. Ashlie Hills CO2 [Moles/Vol] 29.1 mmol/L Normal 21.0-32.0 [facility] Comment on above: Performed By: #### I NFLUAB #### [facility] [address] [place] [address] Dr. Ashlie Hills Creatinine [Mass/Vol] 0.86 mg/dL Normal 0.55-1.02 The [facility] Comment on above: Performed By: #### I NFLUAB #### [facility] [address] [place] [address] Dr. Ashlie Hills EGFR-AF CAMBODIAN >60 Normal >=60 [facility] Comment on above: Performed By: #### I NFLUAB #### [facility] [address] [place] [address] Dr. Ashlie Hills EGFR-NON AF CAMBODIAN >60 Normal >=60 [place] Comment on above: Performed By: #### I NFLUAB #### [facility] [address] [address] [address] Ashlie Hills Glucose [Mass/Vol] 236 mg/dL Critically high 74-[address] [facility] Comment on above: Performed By: #### I NFLUAB #### [facility] [address] [address] [address] Ashlie Hills Potassium [Moles/Vol] 4.2 mmol/L Normal 3.5-5.1 [place] Comment on above: Performed By: #### I NFLUAB #### [facility] [address] [place] [address] Dr. Ashlie Hills Sodium [Moles/Vol] 138 mmol/L Normal 136-145 [facility] Comment on above: Performed By: #### I NFLUAB #### [facility] [address] [place] [address] Dr. Ashlie Hills Urea nitrogen [Mass/Vol] 11.0 mg/dL Normal 7.0-18.0 [place] Comment on above: Performed By: #### I NFLUAB #### [facility] [address] [place] [address] Dr. Ashlie Hills Urea nitrogen/Creatinine [Mass ratio] 12.8 mg/mg Normal [place] Comment on above: Performed By: #### I NFLUAB #### [facility] [address] [place] [address] Dr. Ashlie Hills URINE MICROSCOPIC ONLYon BACTERIA SMALL Abnormal NONE SEEN The [facility] Comment on above: Performed By: #### EVONNE DIAZ #### [facility] [address] [place] [address] Dr. Ashlie Hills Bacteria identified Cx Nom (U) INDICATED Normal [place] Comment on above: Performed By: #### EVONNE DIAZ #### [facility] [address] [place] [address] Dr. Ashlie Hills CAST NONE SEEN Normal NONE SEEN The [facility] Comment on above: Performed By: #### E RUR, UMICRO #### [facility] [address] [place] [address] Dr. Ashlie Hills Crystals LM Nom (Urine sed) NONE SEEN Normal NONE SEEN The [facility] Comment on above: Performed By: #### E RUR, UMICRO #### [facility] [address] [place] [address] Dr. Ashlie Hills Epithelial cells LM Ql (Urine sed) MODERATE Abnormal NONE SEEN /RARE The [facility] Comment on above: Performed By: #### E RUR, UMICRO #### [facility] Laboratory [address] [place] [address] Dr. Ashlie Hills MUCOUS NONE SEEN Normal NONE SEEN [facility] Comment on above: Performed By: #### E RUR, UMICRO #### [facility] [address] [place] [address] Dr. Ashlie Hills RBC 0-2 Normal 0-2 [facility] Comment on above: Performed By: #### E RUR, UMICRO #### [facility] [address] [place] [address] Dr. Ashlie Hills WBC 0-2 Abnormal NONE SEEN [facility] Comment on above: Performed By: #### E RUR, UMICRO #### [facility] [address] [place] [address] Dr. Ashlie Hills YEAST PRESENT Abnormal NONE SEEN [facility] Comment on above: Performed By: #### E RUR, UMICRO #### [facility] [address] [place] [address] Dr. Ashlie Hills HIP RIGHT 1 OR 2 VWS WITH PE LVISon 07-20-2020 HIP RIGHT 1 OR 2 VWS WITH PELVIS [facility] Department of Radiology [address] [place] [id number] Patient Name: MITZI MACIAS : 1970 Sex: F Age: Race: White Pt. Location: 84 Patient Status: O Ordered Date: 07/20/2020 1:45:00 PM Completed Date: 07/20/2020 01:57 PM Requesting Provider: LIZ EISENBERG Attending Provider: LIZ EISENBERG Report Copy To: MCKAYLA BLAS Signs & Symptoms: M25.551 Pain in right hip I10 History: [place] Comments: evaluate Exam: HIP RIGHT 1 OR [...] MRI. Electronically signed: Pipo Acevedo. Transcribed by: [email or web address], User Resident: Electronically Signed by: PIPO ACEVEDO @ 07/20/2020 03:45 PM Normal [address] [facility] Comment on above: Order Comment: evalu ate Vital Signs Date Time Vital Sign Value Performing Clinician Facility 04-14-2024 10: Body height 165.1 cm Mckayla Blas [employer]SEMBLER Work Phone: [facility] 04-14-2024 10:040 Body mass index (BMI) [Ratio] 61.01 kg/m2 Mckayla Blas [employer]SEMBLER Work Phone: [facility] 04-14-2024 10: Body temperature 98.49 [degF] Mckayla Blas [employer]ICES ASSEMBLER Work Phone: [facility] 04-14-2024 10:27-0400 Body weight 166.29 kg Mckayla Blas [employer] ASSEMBLER Work Phone: [facility] 04-14-2024 10:27-0400 Diastolic blood pressure 80 mm[Hg] Mckayla Rosenbergz [employer] Work Phone: [facility] 04-14-2024 10:27-0400 Heart rate 77 /min Mckayla Blas [employer] ASSEMBLER Work Phone: [facility] 04-14-2024 10:27-0400 Respiratory rate 19 /min Mckayla Blas [employer]ICES ASSEMBLER Work Phone: [facility] 04-14-2024 10:27-0400 SaO2% (BldA) [Mass fraction] 92 % Mckayla Blas [employer]ING [employer]ICES ASSEMBLER Work Phone: [facility] 04-14-2024 10:27-0400 Systolic blood pressure 116 mm[Hg] Mckayla Blas [employer]ING DEVICES ASSEMBLER Work Phone: [facility] 03-08-2022 15:00-0400 Body height 170.18 cm Stephanie Tico Other [employer] Other 03-08-2022 15:00-0400 Body temperature 97.6 [degF] Stephanie Tico Other [employer] Other 03-08-2022 15:00-0400 Diastolic blood pressure 72 mm[Hg] Stephanie Tico Other [employer] Other 03-08-2022 15:00-0400 Respiratory rate 20 /min Stephanie Tico Other [employer] Other 03-08-2022 15:00-0400 SaO2% (BldA) [Mass fraction] 91 % Stephanie Tico Other [employer] Other 03-08-2022 15:00-0400 Systolic blood pressure 131 mm[Hg] Stephanie Tcio Other [employer] Other 02-20-2022 09:20-0400 Body height 170.18 cm Stephanie Tico Other [employer] Other 02-20-2022 09:20-0400 Body temperature 96.5 [degF] Stephanie Tico Other [employer] Other 02-20-2022 09:20-0400 Diastolic blood pressure 69 mm[Hg] Stephanie Tico Other [employer] Other 02-20-2022 09:20-0400 Respiratory rate 20 /min Stephanie Tico Other [employer] Other 02-20-2022 09:20-0400 SaO2% (BldA) [Mass fraction] 91 % Stephanie Tico Other [employer] Other 02-20-2022 09:20-0400 Systolic blood pressure 129 mm[Hg] Stephanie Tico Other [employer] Other 02-06-2022 10:24-0400 Blood Pressure Location Elbert VARGAS [facility] 02-06-2022 10:24-0400 Diastolic blood pressure 76 mm[Hg] Elbert VARGAS [facility] 02-06-2022 10:24-0400 Heart rate 70 /min Elbert AVRGAS [facility] 02-06-2022 10:24-0400 Respiratory rate 16 /min Elbert VARGAS [facility] 02-06-2022 10:24-0400 Systolic blood pressure 134 mm[Hg] Elbert VARGAS [facility] Encounters Encounter Date Encounter Type Care Provider Facility Start: 05-08-2024 ambulatory DANTE Purdy acility:[facility] Start: 04-14-2024 End: 04-14-2024 Bamboo flowsheet Mckayla Blas [employer]ICES ASSEMBLER Work Phone: [facility] Start: 04-14-2024 End: 04-14-2024 Bamboo flowsheet Mckayla Wan [employer]SEMBLER Work Phone: [facility] Start: 04-14-2024 End: 04-14-2024 Office outpatient visit 25 minutes Mckayla Blas [employer] ASSEMBLER Work Phone: [facility] Comment on above: Primary hypertension (CMS/HCC) (Primary Dx); Insomnia; Type 2 diabetes mellitus with complication, with long-term current use of insulin (CMS/HCC); Non-seasonal allergic rhinitis, unspecified trigger; Type 2 diabetes mellitus with unspecified complications (CMS/HCC); Anxiety and depression (CMS/HCC); Gastro-esophageal reflux disease without esophagitis; Edema, unspecified; Edema; Diabetic polyneuropathy associated with type 2 diabetes mellitus (CMS/HCC); Chronic obstructive pulmonary disease, unspecified (CMS/HCC); Pulmonary emphysema, unspecified emphysema type (CMS/HCC); Bilateral lower extremity edema; Tobacco user; Hyperpigmentation of skin Start: 04-14-2024 End: 04-14-2024 ambulatory MCKAYLA AICHHOLZ Not Available Start: 01-17-2024 Patient encounter procedure Mckayla Aichholz [employer]SEMBLER Work Phone: [facility] Start: 01-17-2024 End: 01-17-2024 ambulatory MCKAYLA AICHHOLZ Not Available Start: 11-15-2023 End: 11-15-2023 ambulatory MCKAYLA AICHHOLZ Not Available Start: 11-14-2023 End: 11-14-2023 ambulatory [facility] Start: 11-01-2023 End: 11-01-2023 ambulatory MCKAYLA AICHHOLZ Not Available Start: 09-27-2023 End: 09-27-2023 ambulatory MCKAYLA AICHHOLZ Not Available Start: 08-17-2023 Refill Mckayla Aichholz [employer]SEMBLER Work Phone: [facility] Comment on above: Vaginal yeast infect ion (Primary Dx) Start: 08-14-2023 Refill Mckayla Aichholz [employer] ASSEMBLER Work Phone: [facility] Comment on above: Type 2 diabetes asiya itus with unspecified complications (CMS/[facility]); Edema, unspecified; Edema Start: 07-10-2023 End: 07-10-2023 ambulatory MCKAYLA AICHHOLZ Not Available Start: 12-05-2022 ambulatory NARENDRANATH LAKSHMIPATHY . Facility:[facility] Start: 12-05-2022 End: 12-06-2022 Evaluation and management of inpatient UMBERTO ALONDRA . Facility:[facility] Start: 11-23-2022 End: 11-23-2022 ambulatory SHOP SERVICE TECHNICIAN MCKAYLA AICHHOLZ Facility:[facility] Start: 11-22-2022 End: 11-23-2022 ambulatory SHOP SERVICE TECHNICIAN MCKAYLA AICHHOLZ Facility:[facility] Start: 11-17-2022 End: 11-18-2022 ambulatory SUBHASH GASPAR . Facility:[facility] Start: 11-15-2022 End: 11-15-2022 Patient encounter procedure SARAH VEGA [facility] Start: 10-05-2022 End: 10-05-2022 ambulatory MARIANO DIAB . Facility:[facility] Start: 09-21-2022 End: 09-21-2022 ambulatory SAYDA BLAS Facility:[facility] Start: 09-14-2022 ambulatory RAFAEL Ribera y:[facility] Start: 08-24-2022 End: [address] CHAPARRO MORTENSEN . Facility:[facility] Start: 08-21-2022 End: 08-22-2022 ambulatory HATTIE Ramsey [facility] Facility:[facility] Start: 07-27-2022 End: 07-28-2022 ambulatory CECILIA BJORNRUCHI . Facility:[facility] Start: 07-18-2022 End: 07-19-2022 ambulatory CECILIA BJORNLYN . Facility:[facility] Start: 07-18-2022 End: 07-19-2022 ambulatory HATTIE Ramsey [facility] Facility:[facility] Start: 07-06-2022 End: 07-06-2022 ambulatory SAYDA BLAS Facility:[facility] Start: 05-11-2022 End: 05-12-2022 ambulatory GIL VALENZUELA . Facility:[facility] Start: 04-25-2022 End: 04-25-[address] CHAPARRO MORTENSEN . Facility:[facility] Start: 04-20-2022 End: 04-21-2022 ambulatory GIL VALENZUELA . Facility:[facility] Start: 03-08-2022 End: 03-08-2022 ambulatory Stephanie Tico Other [employer] Other Start: 03-08-2022 Office outpatient vi sit 15 minutes Stephanie Tico [facility] Start: 03-03-2022 End: 03-04-2022 ambulatory SAYDA ASENCIO LARACayetanoJODIE Facility:[facility] Start: 02-20-2022 End: 02-20-2022 ambulatory Stephanie Tico Other [employer] Other Start: 02-20-2022 Office outpatient ne w 45 minutes Stephanie Tico [facility] Start: 02-06-2022 End: 02-06-2022 Patient encounter procedure Elbert VARGAS [facility] Start: 01-19-2022 End: 01-20-2022 ambulatory GIL VALENZUELA . Facility:[facility] Start: 12-24-2021 End: 12-24-2021 ambulatory OLE RAMIREZ Facility: Start: 08-26-2020 End: 09-10-2020 Patient encounter procedure MARY TAVERAS Facility:[facility] Start: 10-30-2019 End: 10-30-2019 Emergency department patient visit JAMES Reis [facility] Start: 10-30-2019 End: 10-30-2019 Emergency department patient visit James Desouza [facility] Emergency Department Start: 11-02-2016 Preoperative state Stephanie Tico Other [employer] Other Procedures Date Procedure Procedure Detail Performing Clinician Start: 12-14-2023 Mammography Mckayla clifford NP Work Phone: Start: 11-22-2022 Mammography Mckayla clifford [employer]SEMBLER Work Phone: Start: 10-08-2015 Microscopic observat ion [Identifier] in Cervix by Cyto stain Mckayla Blas NP Work Phone: H/O: hysterectomy Elbert LARA Laparoscopic cholecystectomy Elbert VARGAS Operative procedure on foot Elbert VARGAS Plan of Treatment Date Care Activity Detail Author Start: 08-03-2025 Screening for malignant neoplasm of colon [facility] Start: 01-16-2025 Medicare Annual Wellness (AWV) Medicare Annual Wellness (AWV) [facility] Start: 12-13-2024 Screening for malignant neoplasm of breast Mammogram [facility] Start: 11-11-2024 Urine screening for protein Diabetes: Urine Protein Screening [facility] Start: 07-14-2024 End: 07-14-2024 Patient encounter procedure 07/14/2024 6:30 PM EST Office Visit [facility] [address] [place] [address] Mckayla Blas NP [address] [place] [address] [facility] Start: 07-14-2024 End: 07-14-2024 Patient encounter procedure 07/14/2024 10:10 AM EST Office Visit [facility] [address] [place] [address] Rain Odonnell MD [address] [place] [address] [facility] Start: 06-06-2024 Influenza vaccination Influenza Vacc ine (#1) [facility] Comment on above: Postponed from 03/09 (Patient Refused) Start: 05-17-2024 Hemoglobin A1c measurement Diabetes: Hemoglobin A1C [facility] Start: 05-15-2024 End: 05-15-2024 Patient encounter procedure 05/15/2024 11:20 AM EST Office Visit [facility] [address] [place] [address] Rain Odonnell MD [address] [place] [address] [facility] Start: 04-14-2024 End: 04-14-2024 Patient encounter procedure 04/14/2024 11:00 AM EDT Office Visit [facility] [address] [place] [address] Mckayla Blas NP [address] [place] [address] [facility] Ar[facility] Start: 03-09-2024 Influenza vaccination Influenza Vacc ine (#1) [facility] Start: 02-19-2024 Hemoglobin A1c measurement Diabetes: Hemoglobin A1C [facility] Start: 11-24-2023 Urine screening for protein Diabetes: Urine Protein Screening [facility] Start: 11-23-2023 Screening for malignant neoplasm of breast Mammogram [facility] Start: 10-15-2023 End: 10-15-2023 Patient encounter procedure 10/15/2023 4:30 PM EDT Office Visit [facility] [address] [place] [address] Mckayla Blas NP [address] [place] [address] [facility] Start: 08-09-2023 Hemoglobin A1c measurement Diabetes: Hemoglobin A1C [facility] Start: 05-27-2021 Glaucoma screening Diabetes: R etinopathy Screening [facility] Start: 03-09-2020 Influenza vaccination Flu vacc ine (Season Ended) [place], [place] Start: 10-07-2018 Screening for malignant neoplasm of cervix [facility] Start: 2010 Lipid panel Lipid screen [place], [place] Start: 2000 Screening for malignant neoplasm of cervix HPV/Cotest [facility] Start: 1991 Screening for malignant neoplasm of cervix Cervical cancer screen [place], [place] Start: 1989 DTaP/Tdap/Td vaccine (1 - Tdap) DTaP/Tdap/Td vaccine ( - Tdap) [place], [place] Start: 1985 HIV screening HIV screen [place], [place] Start: 1970 Medicare Annual Wellness (AWV) Medicare Annual Wellness (AWV) [facility] Start: 1970 Screening for malignant neoplasm of colon [facility] Immunizations Immunization Date Immunization Notes Care Provider Fa cili 05-18-2023 influenza, injectabl e, quadrivalent, contains preservative Mckayla Blas NP Work Phone: [facility] 05-18-2023 influenza virus vacc ine, unspecified formulation Mckayla Blas [employer]SEMBLER Work Phone: [facility] 07-19-2021 SARS-CoV-2 (COVID-19 ) mRNA BNT-162b2 vax SARAH VEGA [facility] 10-28-2020 SARS-CoV-2 (COVID-19 ) mRNA BNT-162b2 vax SARAH VEGA [facility] 10-08-2020 SARS-CoV-2 (COVID-19 ) mRNA BNT-162b2 vax SARAH VEGA [facility] 04-16-2017 influenza virus vacc ine, unspecified formulation Mckayal Aichholz [employer] ASSEMBLER Work Phone: [facility] 04-16-2017 pneumococcal polysaccharide vaccine, 23 valent Mckayla Aichholz [employer] ASSEMBLER Work Phone: [facility] 05-10-2016 influenza virus vacc ine, unspecified formulation Mckayla Aichholz [employer]ICES ASSEMBLER Work Phone: [facility] 05-02-2013 influenza virus vacc ine, whole virus Mckayla Aichholz [employer]ING [employer]ICES ASSEMBLER Work Phone: [facility] 01-29-1998 measles, mumps and rubella virus vaccine Mckayla Aichholz [employer]ING [employer]ICES ASSEMBLER Work Phone: [facility] Healthcare Payers Date Payer Category Payer Private Health Insurance [facility] [id number] 2023-Present [address] [address] [place] [address] [id number] 2023 Private Health Insurance [id number] 2023 Medicare [id number] 2018 Medicaid MEDICAID [facility] [id number] 2018-Present [phone] [address] [place] [address] Medicaid [id number] 2017 Medicare [id number]. [id number] 1970 Unknown [id number] 2.16.840.1.192697.3.579.2. 647 1970 Unknown [id number] 2.16.840.1.262398.3.579.2. 593 1970 Unknown [id number] 2.16.840.1.226541.3.579.2. 593 1970 Unknown [id number] 2.16.840.1.930542.3.579.2. 593 1970 Unknown [id number] 2.16.840.1.791094.3.579.2. 593 1970 Unknown [id number] 2.16.840.1.577801.3.579.2. 593 1970 Unknown [id number] 2.16.840.1.629878.3.579.2. 593 1970 Unknown [id number] 2.16.840.1.576544.3.579.2. 593 1970 Unknown [id number] 2.16.840.1.801732.3.579.2. 593 1970 Unknown [id number] 2.16.840.1.330178.3.579.2. 593 1970 Unknown [id number] 2.16.840.1.245710.3.579.2. 593 1970 Unknown [id number] 2.16.840.1.254022.3.579.2. 593 1970 Unknown [id number] 2.16.840.1.713167.3.579.2. 593 1970 Unknown [id number] 2.16.840.1.833781.3.579.2. 593 1970 Unknown [id number] 2.16.840.1.669976.3.579.2. 593 1970 Unknown [id number] 2.16.840.1.187114.3.579.2. 593 1970 Unknown [id number] 2.16.840.1.287737.3.579.2. 593 1970 Unknown [id number] 2.16.840.1.010951.3.579.2. 593 1970 Unknown [id number] 2.16.840.1.940081.3.579.2. 593 1970 Unknown [id number] 2.16.840.1.068983.3.579.2. 593 1970 Unknown [id number] 2.16.840.1.365860.3.579.2. 593 1970 Unknown [id number] 2.16.840.1.490852.3.579.2. 593 1970 Unknown [id number] 2.16.840.1.963248.3.579.2. 593 1970 Unknown [id number] 2.16.840.1.622016.3.579.2. 1259 1970 Unknown [id number] 2.16.840.1.209376.3.579.2. 1259 1970 Unknown [id number] 2.16.840.1.646208.3.579.2. 1259 1970 Unknown [id number] 2.16.840.1.258930.3.579.2. 1259 1970 Unknown [id number] 2.16.840.1.538836.3.579.2. 1259 1970 Unknown [id number] 2.16.840.1.386210.3.579.2. 1259 1970 Unknown [id number] .16.840.1.963973.3.579.2. 727 1959 Medicaid [id number] 1959 Private Health Insurance [id number] 1959 Unknown [id number] .16.840.1.584144.19 Social History Date Type Detail Facility Start: 02-17-2014 End: 07-10-2023 Tobacco smoking status NHIS Current every day smoker [place], [place] Start: 02-17-1994 History of tobacco use Cigarette Smo ker [place] Start: 02-17-2014 End: 07-10-2023 Cigarettes smoked current (pack per day) - Reported [place], [place] Start: 02-17-2014 Alcohol intake Current drinke r of alcohol (finding) [place] Start: 02-17-2014 Alcohol Comment [facility] Shantelle Monteiro [place], [place] Start: 1970 Sex Assigned At Not on file [place] Exposure to SARS-CoV -2 (event) Unable to assess [place], [place] Start: 02-06-2022 Tobacco smoking status Smoker (findi ng) [facility] Start: 07-10-2023 End: 01-17-2024 Sex Assigned At Female [facility] Start: 11-15-2022 Tobacco smoking status Heavy t obacco smoker (finding) [facility] Start: 07-10-2023 Tobacco use and exposure Smoke less tobacco non-user [facility] Start: 07-10-2023 End: 04-14-2024 Alcohol intake Lifetime non-drinker (finding) [facility] Within the last year , have you been afraid of your partner or ex-partner? No [facility] Do you belong to any clubs or organizations such as scientologist groups, unions, fraternal or athletic groups, or [...] Medical Equipment Procedure Code Equipment Code Equipment Origin al Text Equipment Identifier Dates [id number] Start: 01-18-2024 Functional Status Date Assessment Result Facility 11-15-2022 Functional Status N/A [facility] 02-06-2022 Functional Status N/A [facility] Clinical Notes 01-19-2022 to 04-14-2024 Mckayla Blas NP - 04/14/2024 11:45 AM Savannah Blas NP - 04/14/2024 11:43 AM Savannah Blas NP - 04/14/2024 11:43 AM Savannah Blas NP - 04/14/2024 11:42 AM EDT Note Date & Type Note Facility 04-14-2024 History of Present illness Narrative Associated Problem(s): Hyperpigmentation of skin Will try cerevue ointment to see if helps Associated Problem(s): Tobacco user Urged to quit Associated Problem(s): Type 2 diabetes mellitus with complication, with long-term current use of insulin ([facility]) Check blood sugars daily, follow w Endo. Take medications (pills or insulin) as directed. Monitor for s/s of hypoglycemia (sweaty, dizziness, nausea, vomiting, or shakiness). Watch for increase in thirst, urination, or appetite. Inspect feet frequently monitoring for open wounds , and also recommend yearly eye exam. Pt should attempt to remain as physically active as chronic conditions allow, as well as trying to follow a diet low in carbohydrates, and simple sugars. Continue with dr odonnell for mgmt, and recommend diabetic eye exam Associated Problem(s): Bilateral lower extremity edema Stable on current meds Associated Problem(s): Hypertension (CMS/HCC) Stable on current meds Refill meds Associated Problem(s): COPD (chronic obstructive pulmonary disease) (CMS/HCC) Stable at this time, no changes in meds Encouraged smoking cessation Cont with dr Yañez Associated Problem(s): Diabetic neuropathy (CMS/HCC) Continue with tristan [facility] reviewed Fu in 3 months Pt would like to also make this a fu after the ER- she did just fu with wound care today. Wound is on right ankle-has been treated, however she had swelling, had a blister, blister did open, pt had the ankle wrapped,pt unwrapped the wound and there was maggots, pt went to er since wound care was closed. Pt would like her left elbow-rough/dry skin, dark in color, sore after cleaning, spreading/getting larger in the last couple months. Images from the original note were not included. Mitzi Macias is a 53 y.o. female presents with chief complaint of No chief complaint on file. HPI: Diabetes She presents for her follow-up diabetic visit. She has type 2 diabetes mellitus. Her disease course has been stable. Hypoglycemia symptoms include nervousness/anxiousness. Pertinent negatives for hypoglycemia include no dizziness, headaches, seizures or tremors. Associated symptoms include foot paresthesias. Pertinent negatives for diabetes include no blurred vision, no chest pain, no polydipsia, no polyphagia and no polyuria. There are no hypoglycemic complications. Symptoms are improving. Diabetic complications include peripheral neuropathy. Pertinent negatives for diabetic complications include no CVA, heart disease, impotence or retinopathy. Risk factors for coronary artery disease include diabetes mellitus, dyslipidemia, hypertension, obesity, sedentary lifestyle and tobacco exposure. Current diabetic treatment includes insulin injections and oral agent (dual therapy) (tricia). She never participates in exercise. Her overall blood glucose range is 130-140 mg/dl. An SRINIVAS inhibitor/angiotensin II receptor eun is being taken. She does not see a vending machine attendant.Eye exam is not current. Hypertension This is a chronic problem. The current episode started more than 1 year ago. The problem is unchanged. The problem is controlled. Associated symptoms include anxiety, peripheral edema and shortness of breath. Pertinent negatives include no blurred vision, chest pain, headaches, palpitations or PND. There are no associated agents to hypertension. Risk factors for coronary artery disease include diabetes mellitus, dyslipidemia, obesity, sedentary lifestyle and smoking/tobacco exposure. Past treatments include direct vasodilators, beta blockers and SRINIVAS inhibitors. The current treatment provides significant improvement. There are no compliance problems. There is no history of CVA or retinopathy. Depression Visit Type: follow-up Patient presents with the following symptoms: depressed mood (at times), irritability, nervousness/anxiety and shortness of breath. Patient is not experiencing: anhedonia, compulsions, decreased concentration, excessive worry, feelings of hopelessness, feelings of worthlessness, impotence, insomnia, memory impairment, palpitations, suicidal ideas, suicidal planning and thoughts of . Severity: mild Compliance with medications: 76-100% Anxiety Presents for follow-up visit. Symptoms include depressed mood (at times), irritability, nervous/anxious behavior and shortness of breath. Patient reports no chest pain, compulsions, decreased concentration, dizziness, excessive worry, impotence, insomnia, nausea, palpitations or suicidal ideas. Symptoms occur most days. The severity of symptoms is mild. Compliance with medications is 76-100%. SUBJECTIVE: MEDICATIONS: Current Outpatient Medications Medication Instructions Accu-Chek Guide test strip 1 each, Other, 4 times daily albuterol HFA 90 mcg/act inhaler 2 puffs, Inhalation, Every 4 hours PRN albuterol 2.5 mg, Nebulization, Every 6 hours PRN amitriptyline (ELAVIL) 25 mg, Oral, Nightly aspirin 81 mg, Oral, Daily cetirizine (ZYRTEC) 10 mg, Oral, Daily dapagliflozin (FARXIGA) 10 mg, Oral, Daily diclofenac (VOLTAREN) 75 mg, Oral, 2 times daily, Do not crush, chew, or split. DULoxetine (CYMBALTA) 60 mg, Oral, 2 times daily, Do not crush or chew. ergocalciferol (Vitamin D2) 1.25 MG (83908 UT) capsule TAKE 1 CAPSULE BY MOUTH ONE TIME PER WEEK furosemide (LASIX) 20 mg, Oral, Daily PRN, Take in the afternoon as needed furosemide (LASIX) 40 mg, Oral, Daily Glucose Blood (ACCU-CHEK JAQUI PLUS ) 4 times daily HumaLOG KWIKPEN 100 UNIT/ML injection Subcutaneous hydrALAZINE (APRESOLINE) 25 mg, Oral, 2 times daily HYDROcodone-acetaminophen (Wellington) 5-325 MG tablet 1 tablet, 3 times daily PRN insulin glargine (LANTUS) 58 Units, Subcutaneous, 2 times daily ipratropium-albuterol (Duo-Neb) 0.5-2.5 mg/3 mL nebulizer solution Daily PRN Lantus SoloStar 100 UNIT/ML pen lisinopril 20 mg, Oral, Daily Mounjaro 15 mg, Injection, Every 7 days nortriptyline (Pamelor) 50 MG capsule 1 capsule, Oral, Daily omeprazole (PRILOSEC) 20 mg, Oral, Daily before breakfast oxygen (O2) 2 L/min, Inhalation, Continuous, via nasal canula pen needle 32G x 5 mm misc 5 each, Subcutaneous, Daily, Use as instructed potassium chloride ER (Micro-K) 10 MEQ ER capsule 10 mEq, Oral, Daily, Take 1 capsule (10 mEq) by mouth in the morning. pregabalin (LYRICA) 300 mg, Oral, 2 times daily Roflumilast 500 MCG tablet 1 tablet, Oral, Daily simvastatin (ZOCOR) 10 mg, Oral, Nightly Ubrelvy 100 mg, Oral, Daily PRN Varenicline Tartrate, Starter, 0.5 MG X 11 & 1 MG X 42 tablet therapy pack TAKED DIRECTED BY MOUTH TWICE DAILY ALLERGIES: No Known Allergies REVIEW OF SYMPTOMS: Review of Systems Constitutional: Positive for irritability. Negative for appetite change, chills and fever. HENT: Negative for congestion, ear pain and sore throat. Eyes: Negative for blurred vision, pain, discharge, redness and visual disturbance. Respiratory: Positive for shortness of breath. Negative for cough and wheezing. Cardiovascular: Positive for leg swelling. Negative for chest pain, palpitations and PND. Gastrointestinal: Negative for abdominal pain, blood in stool, constipation, diarrhea, nausea and vomiting. Genitourinary: Negative for difficulty urinating, dysuria, frequency and impotence. Musculoskeletal: Positive for arthralgias and back pain. Negative for joint swelling and myalgias. Skin: Positive for wound. Negative for rash. Neurological: Negative for dizziness, tremors, seizures, syncope and headaches. Psychiatric/Behavioral: Positive for depression. Negative for behavioral problems, decreased concentration, self-injury and suicidal ideas. The patient is nervous/anxious. The patient does not have insomnia. Depression Hematological: Does not bruise/bleed easily. Endocrine: Negative for polydipsia, polyphagia and polyuria. Allergic/Immunologic: Negative for environmental allergies and food allergies. 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 Anxiety and depression ([facility]) 07/10/2023 Asthma ([facility]) 07/10/2023 Cellulitis of left lower extremity Cervical cancer ([facility]) 09/17/2023 Chronic pain of both knees 09/17/2023 COPD (chronic obstructive pulmonary disease) ([facility]) 07/10/2023 COPD exacerbation ([facility]) 09/17/2023 Decreased functional mobility 09/17/2023 Diabetic neuropathy ([facility]) 07/10/2023 Edema 07/10/2023 Elevated sed rate Elevated WBC count GERD (gastroesophageal reflux disease) 09/17/2023 Hyperlipidemia ([facility]) 09/17/2023 Hypertension ([facility]) 07/10/2023 Insomnia 09/17/2023 Lower extremity edema 09/17/2023 Obstructive sleep apnea 07/10/2023 PAD (peripheral artery disease) ([facility]) 09/17/2023 Pancreatitis 09/17/2023 Pneumonia 09/17/2023 Pulmonary hypertension ([facility]) 09/17/2023 Radiculopathy, lumbar region 09/17/2023 Tobacco user 09/17/2023 Type 2 diabetes mellitus with complication, with long-term current use of insulin ([facility]) 07/10/2023 Unilateral primary osteoarthritis, right hip 09/17/2023 Vaginal yeast infection 08/17/2023 Venous insufficiency 09/17/2023 Past Surgical History: Procedure Laterality Date CERVIX SURGERY removal of pre cancer cell from cervix CHOLECYSTECTOMY HYSTERECTOMY TOE SURGERY Left Ulcer debridement family history includes Cancer in her paternal grandfather and paternal grandmother; Hypertension in her paternal grandmother; Mental illness in an other family member; No Known Problems in her father; Varicose veins in her father's sister. OBJECTIVE: Visit Vitals BP 116/80 (BP Location: Left arm, Patient Position: Sitting, BP Cuff Size: Adult long) Comment (BP Location): forarm Pulse 77 Temp 98.5 F (Temporal) Resp 19 Ht 5' 5 Wt 366 lb 9.6 oz SpO2 92% BMI 61.01 kg/m Smoking Status Every Day BSA 2.76 m Physical Exam Vitals and nursing note reviewed. Constitutional: General: She is not in acute distress. Appearance: Normal appearance. She is obese. HENT: Head: Normocephalic and atraumatic. Right Ear: External ear normal. Left Ear: External ear normal. Nose: Nose normal. Mouth/Throat: Mouth: Mucous membranes are moist. Eyes: Extraocular Movements: Extraocular movements intact. Conjunctiva/sclera: Conjunctivae normal. Neck: Vascular: No carotid bruit. Cardiovascular: Rate and Rhythm: Normal rate and regular rhythm. Pulses: Normal pulses. Heart sounds: Normal heart sounds. Pulmonary: Effort: Pulmonary effort is normal. Breath sounds: Wheezing (insp, exp, improved with coughing) present. Abdominal: General: Bowel sounds are normal. There is no distension. Palpations: Abdomen is soft. There is no mass. Tenderness: There is no abdominal tenderness. Musculoskeletal: General: Normal range of motion. Cervical back: Normal range of motion and neck supple. Right lower leg: No edema. Left lower leg: No edema. Skin: General: Skin is warm and dry. Capillary Refill: Capillary refill takes 2 to 3 seconds. Findings: No rash. Comments: Wound to RLE, did not remove her bandages as she was just at wound care this morning Left posterior elbow region: w brown hyperpigmentation noted, dry flaky skin, no open wounds or ulcerations: pt is trying to scrub every day, does not seem to be better. Also using eucerin cream as well. No itching Neurological: General: No focal deficit present. Mental Status: She is alert and oriented to person, place, and time. Psychiatric: Mood and Affect: Mood normal. Behavior: Behavior normal. Thought Content: Thought content normal. Judgment: Judgment normal. ASSESSMENT AND PLAN: No follow-ups on file. Problem List Items Addressed This Visit Diabetic neuropathy ([facility]) Continue with tristan EAST reviewed Fu in 3 months Relevant Medications pregabalin (Lyrica) 300 MG capsule COPD (chronic obstructive pulmonary disease) ([facility]) - Primary Stable at this time, no changes in meds Encouraged smoking cessation Cont with dr Yañez Hypertension ([facility]) Stable on current meds Refill meds Relevant Medications hydrALAZINE (Apresoline) 25 MG tablet lisinopril 20 MG tablet Type 2 diabetes mellitus with complication, with long-term current use of insulin ([facility]) Check blood sugars daily, follow w Endo. Take medications (pills or insulin) as directed. Monitor for s/s of hypoglycemia (sweaty, dizziness, nausea, vomiting, or shakiness). Watch for increase in thirst, urination, or appetite. Inspect feet frequently monitoring for open wounds , and also recommend yearly eye exam. Pt should attempt to remain as physically active as chronic conditions allow, as well as trying to follow a diet low in carbohydrates, and simple sugars. Continue with dr odonnell for mgmt, and recommend diabetic eye exam Relevant Medications aspirin 81 MG chewable tablet Anxiety and depression ([facility]) Relevant Medications DULoxetine (Cymbalta) [address] capsule Bilateral lower extremity edema Stable on current meds Insomnia Relevant Medications amitriptyline (Elavil) 25 MG tablet Tobacco user Urged to quit Non-seasonal allergic rhinitis Relevant Medications cetirizine (ZyrTEC) 10 MG tablet Hyperpigmentation of skin Will try cerevue ointment to see if helps Other Visit Diagnoses Type 2 diabetes mellitus with unspecified complications (CMS/HCC) Relevant Medications dapagliflozin (Farxiga) 10 MG Gastro-esophageal reflux disease without esophagitis Relevant Medications omeprazole (PriLOSEC) [address] capsule Edema, unspecified Relevant Medications potassium chloride ER (Micro-K) 10 MEQ ER capsule Edema Relevant Medications potassium chloride ER (Micro-K) 10 MEQ ER capsule Chronic obstructive pulmonary disease, unspecified (CMS/HCC) Relevant Medications Roflumilast 500 MCG tablet documented in this encounter [facility] 11-14-2023 Note [facility] - [facility] Subjective Mitzi Macias is a 53 y.o. year old female being seen as new patient to establish care. Ref from Mckayla Blas CNP for pulmonary hypertension. She had echo in Aug 2023 while inpatient at [facility] for pneumonia and COPD exacerbation. Denies chest [...] complication, with long-term current use of insulin ([facility]) Unilateral primary osteoarthritis, right hip Vaginal yeast [...] was admitted in early 2023 to the [facility] with hypoxemia and treated as [...] wheelchair Skin: Gene (more content not included)... [facility] 11-15-2022 Hospital Discharge instructions Patient Education 11/15/2022 14:09:21 Dietary Guidelines [...] include: ?8 oz (237 mL) of milk, jroptsh-iifrnbmlrcwf-vwvxr milk, and calcium-fortifiedfruit juice. Calcium-fortified means that [...] ?Spinach (cooked), rhubarb, beets, sweet potatoes, and Iranian chard. ?Peanuts. ?Potato chips, mexican fries, and baked potatoes with skin on. ?Nuts and nut products. ?Chocolate. If you regularly take a diuretic medicine, make sure to eat at least 1 or 2 servings of fruits or vegetables that are high in potassium each day. These include: ?Avocado. ?Banana. ?[place], prune, carrot, or tomato juice. ?Baked potato. [...] magnesium, fish oil, or vitamin B6. Take vorq-ajt-tqaqpbv and prescription medicines only as told by [...] Casseroles. Pizza. Lasagna. Frozen meals. Potato chips. Cameroonian fries. The items listed above may not [...] provider. Document Revised: 03/06/2022 Document Reviewed: 03/06/2022 [employer] Patient Education 2022 [employer]. Follow Up Care 02/06/2022 11:44:09 With:SARAH VEGA PA-C, URL Address: [address] [place], [place] [address] [address] When: Unknown [facility] 08-24-2022 Note CONSULTATION CONSULTATION DATE: 08/24/2022 HISTORY [...] We maintain her on pain medication with Wellington 5/325 t.i.d., diclofenac 75 mg b.i.d. Her [...] her at this point. A refill for Wellington 5/325 t.i.d. and diclofenac 75 mg b.i.d. will be sent to the pharmacy. Vitamin compliance and nutrition were discussed and enforced. I did highly encourage her to use exercise bands to increase the strength in her lower extremities. We will see her in three months' time, unless otherwise indicated, and patient agrees. [facility] 05-11-2022 Note CONSULTATION CONSULTATION DATE: [...] 150. Medications include Lyrica 300 mg b.i.d., Wellington 5/325 t.i.d., diclofenac 75 mg b.i.d. and [...] her medications today. We will maintain Lyrica, Wellington and diclofenac at the set dose and frequency. We will follow-up in the clinic in three months' time. The patient is in agreement to this. Vitamin importance and nutrition were discussed. [facility] 04-20-2022 Note CONSULTATION CONSULTATION DATE: [...] medications include Tylenol, Lyrica 300 mg b.i.d., Wellington 5/325 t.i.d., amitriptyline, diclofenac and duloxetine. Patient's [...] be followed up in the clinic. [facility] 03-08-2022 Evaluation note Encounter Date [...] uncontrolled DM and currently follows with Dr. Odonnell. Advised to continue work with Dr. Pringle for better sugar control. Feb, Adrenal mass (ICD-10 - E27.9) Continue to follow with Dr. Odonnell and Dr. Vargas. Feb, Erythrocytosis (ICD-10 - D75.1) He has leukocytosis, erythrocytosis and thrombocytopenia. I discussed with her the option of the hematology referral. She would like the PCP to take care of it. Differential diagnosis of her polycythemia is likely secondary due to the DANIEL. Thrombocytopenia is unclear etiology. [employer] [employer] Other 08-15-2022 Evaluation note* Encounter Date Diagnosis [...] uncontrolled DM and currently follows with Dr. Odonnell. Advised to continue work with Dr. Pringle for better sugar control. Feb, Adrenal mass (ICD-10 - E27.9) Continue to follow with Dr. Odonnell and Dr. Vargas. [facility] [employer] Other 08-01-2022 Hospital Discharge instructions Patient Education [...] fried and sweet foods. General instructions Take ntet-jhh-movxscw and prescription medicines only as told by [...] 04/21/2010 Document Revised: 10/16/2019 Document Reviewed: 07/11/2018 [employer] Patient Education 2020 [employer]. Follow Up Care 01/05/2022 12:02:03 With:REGLA PHIPPS, Elbert Joya, URL Address: [facility] [address] , [place] [address]- [phone] When:Within 6 Month(s) Comments:w/ repeat CT A/P [facility] 07-14-2022 NoteCONSULTATION PROCEDURE DATE: 01/19/2022 PRE AND [...] pattern and the patient tolerated it well. [facility] Signed and Approved by: GIL VALENZUELA . 01/27/2022 14:15:00[place]07-14-2022 NoteCONSULTATION CONSULTATION DATE: 01/19/2022 This is a [...] today. Medications include Lyrica 300 mg b.i.d., Wellington 5/325 t.i.d., diclofenac 75 mg b.i.d. and [...] in three months' time unless otherwise indicated. [facility] Signed and Approved by: GIL VALENZUELA . 01/27/2022 14:15:00[facility] HospitalEvaluation + Plan note Future Appointments Appointment Date:08/14/2022 09:15:00 AM Scheduled Provider:Elbert VARGAS MD Location:[facility] Appointment Type:URO Office Visit [facility] evaluation + Plan note Future Appointments Appointment Date:04/22/2024 10:00:00 AM Scheduled Provider:SARAH VEGA PA-C Location:[facility] Appointment Type:URO Office Visit [facility] evaluation note* Diagnosis Type 2 diabetes mellitus with unspecified complications (CMS/HCC) Edema, unspecified Edema [facility] Diagnosis Vaginal yeast infection- Primary Candidiasis of vulva and vagina documented [facility]* Diagnosis Primary hypertension (CMS/HCC)- Primary Unspecified essential hypertension Insomnia Insomnia, unspecified Type 2 diabetes mellitus with complication, with long-term current use of insulin (CMS/HCC) Non-seasonal allergic rhinitis, unspecified trigger Type 2 diabetes mellitus with unspecified complications (CMS/HCC) Anxiety and depression (CMS/HCC) Gastro-esophageal reflux disease without esophagitis Edema, unspecified Edema Diabetic polyneuropathy associated with type 2 diabetes mellitus (CMS/HCC) Chronic obstructive pulmonary disease, unspecified (CMS/HCC) Pulmonary emphysema, unspecified emphysema type (CMS/HCC) Bilateral lower extremity edema Tobacco user Tobacco use disorder Hyperpigmentation of skin Other dyschromia documented [facility] encounter [facility] [...] History sepsis 2010 Hospitalization History SEE ABOVE [facility] [employer] Other Hospital course Narrative No data available for this section [facility] progress note No data available for this section [facility] reason for referral (narrative) , Referral to Dr. 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 DATE CREATED AUTHOR AUTHOR'S ORGANIZ ATION 12/19/2022 [facility] DATE CREATED AUTHOR AUTHOR'S ORGANIZ ATION 11/16/2023 [facility] DATE CREATED AUTHOR AUTHOR'S ORGANIZ ATION 04/15/2024 [facility] EPIC DATE CREATED AUTHOR AUTHOR'S ORGANIZ ATION 04/21/2024 [facility] Care Team (unrecognized sect ion and content) Ostrich Farmer Relationship Specialty Start Date End Date Ty Amin MD PCP - General Family Medicine 01/05/23 Ostrich Farmer Relationship Specialty Start Date End Date Ty Amin MD PCP - General Family Medicine 01/05/23 Ostrich Farmer Relationship Specialty Start Date End Date Ty Amin MD [address] [place] [phone] PCP - General Family Medicine 09/20/23 Mckayla Blas NP [address] [place] [phone] [facility] 09/07/23 09/05/90 Mckayla Blas NP [address] [place] [phone] Nurse Practitioner Family Medicine 09/20/23 Ostrich Farmer Relationship Specialty Start Date End Date Ty Amin MD [address] [place] [phone] PCP - [facility] 09/20/23 Mckayla Blas NP [address] [place] [phone] [facility] 09/07/23 09/05/90 Mckayla Blas NP [address] [place] [phone] Nurse Practitioner Family Medicine 09/20/23 REASON FOR VISIT (unrecogniz ed section and [...] BE BASED ON THE PRIMARY CLINICAL RECORDS. [email or web address] [facility]. provides no warranty or guarantee of the accuracy or completeness of information in this document.
== END 2024-04-24 10:23 | disposition home or self-care (01) ==
LOC: VC 10:22
PROVIDERS: PCP Nurse Practitioner; Visit Provider Physician Assistant
DX: R09.89 Other specified symptoms and signs involving the circulatory and respiratory systems (principal)
CPT/HCPCS: 93923

== ENCOUNTER 2024-05-07 14:27 | Outpatient (OUT) | payer MEDICARE, OTHER, SELFPAY ==
--- OUTSIDE RECORDS SUMMARY | 2024-05-07 14:52 | XMS_ITS | CCD ---
Author Organization [facility] Care Team Providers Care Supervisor Shop Name Role Phone James Desouza Primary Care Provider JAMES DESOUZA Primary Care Unavailable SHENDGE, VITHAL Admitting Unavailable SHENDGE, VITHAL Attending Unavailable AICHHOLZ, MCKAYLA Primary Care Unavailable AICHHOLZ, MCKAYLA Referring Unavailable AICHHOLZ, MCKAYLA J Primary Care Physician Tico, Stephanie Unavailable OLE RAMIREZ Attending Unavailable OLE RAMIREZ Consulting Unavailable AICHHOLZ, BOOMSWING OPERATOR MCKAYLA Primary Care Unavailable OLE RAMIREZ Admitting Unavailable ANTONY SHRESTHA Consulting Unavailable ALONDRA ., UMBERTO Admitting Unavailable ALONDRA ., UMBERTO Attending Unavailable AICHHOLZ, BOOMSWING OPERATOR MCKAYLA Primary Care Unavailable AFSANEH Loera, DR BOLANOS Consulting Unavailable MARYANNE POWER Consulting Unavailable GLENN KERR Consulting Unavailable YOMAIRA KERR Consulting Unavailable HATTIE GOFF Consulting Unavailable ALONDRA ., UMBERTO Consulting Unavailable TICO, STEPHANIE Attending Unavailable TICO, STEPHANIE Consulting Unavailable AICHHOLZ, BOOMSWING OPERATOR MCKAYLA Primary Care Unavailable TICO, STEPHANIE Admitting Unavailable REGLA ., DR DUMONT Admitting Unavailable AICHHOLZ, BOOMSWING OPERATOR MCKAYLA Primary Care Unavailable REGLA ., DR DUMONT Attending Unavailable VARGAS ., DR DUMONT Consulting Unavailable COLLIN HUERTAS Consulting Unavailable CECILIA KAUFMAN Admitting Unavailable CECILIA KAUFMAN Attending Unavailable AICHHOLZ, BOOMSWING OPERATOR MCKAYLA Primary Care Unavailable RAFAEL GONGORA Attending Unavailable RAFAEL GONGORA Admitting Unavailable AICHHOLZ, BOOMSWING OPERATOR MCKAYLA Primary Care Unavailable AICHHOLZ, BOOMSWING OPERATOR MCKAYLA Admitting Unavailable AICHHOLZ, BOOMSWING OPERATOR MCKAYLA Primary Care Unavailable AICHHOLZ, BOOMSWING OPERATOR MCKAYLA Attending Unavailable AICHHOLZ, BOOMSWING OPERATOR MCKAYLA Consulting Unavailable LAKSHMIPATHY ., NARENDRANATH Attending Anette vailable LAKSHMIPATHY ., NARENDRANATH Consulting Anette vailable LAKSHMIPATHY ., NARENDRANATH Admitting Anette vailable AICHHOLZ, BOOMSWING OPERATOR MCKAYLA Primary Care Unavailable VALENZUELA ., GIL Consulting Unavailable MORTENSEN ., DR CHAPARRO Aguillon Attending Unavailable MORTENSEN ., DR CHAPARRO Aguillon Admitting Unavailable AICHHOLZ, BOOMSWING OPERATOR MCKAYLA Primary Care Unavailable VALENZUELA ., GIL Consulting Unavailable MORTENSEN ., DR CHAPARRO Aguillon Admitting Unavailable AICHHOLZ, BOOMSWING OPERATOR MCKAYLA Primary Care Unavailable MORTENSEN ., DR CHAPARRO Aguillon Attending Unavailable HALKER ., SUBHASH Consulting Unavailable LAKSHMIPATHY ., NARENDRANATH Admitting Anette vailable LAKSHMIPATHY ., NARENDRANATH Attending Anette vailable AICHHOLZ, BOOMSWING OPERATOR MCKAYLA Primary Care Unavailable MORTENSEN ., DR CHAPARRO Aguillon Attending Unavailable MORTENSEN ., DR CHAPARRO Aguillon Admitting Unavailable VALENZUELA ., GIL Consulting Unavailable AICHHOLZ, BOOMSWING OPERATOR MCKAYLA Primary Care Unavailable VALENZUELA ., GIL Consulting Unavailable MORTENSEN ., DR CHAPARRO Aguillon Attending Unavailable MORTENSEN ., DR CHAPARRO Aguillon Admitting Unavailable AICHHOLZ, BOOMSWING OPERATOR MCKAYLA Primary Care Unavailable HATTIE BRODERICK Attending Unavailable HATTIE BRODERICK Admitting Unavailable AICHHOLZ, BOOMSWING OPERATOR MCKAYLA Primary Care Unavailable AICHHOLZ, BOOMSWING OPERATOR MCKAYLA Admitting Unavailable AICHHOLZ, BOOMSWING OPERATOR MCKAYLA Consulting Unavailable AICHHOLZ, BOOMSWING OPERATOR MCKAYLA Primary Care Unavailable AICHHOLZ, BOOMSWING OPERATOR MCKAYLA Attending Unavailable AICHHOLZ, BOOMSWING OPERATOR MCKAYLA Primary Care Unavailable MISC, DR LESLIE Admitting Unavailable MISC, DR LESLIE Attending Unavailable MISC, DR LESLIE Consulting Unavailable DIAB ., MARIANO Admitting Unavailable DIAB ., MARIANO Attending Unavailable DIAB ., MARIANO Consulting Unavailable AICHHOLZ, BOOMSWING OPERATOR MCKAYLA Primary Care Unavailable RASTEGAR, RICCO Consulting Unavailable AICHHOLZ, BOOMSWING OPERATOR MCKAYLA Admitting Unavailable AICHHOLZ, BOOMSWING OPERATOR MCKAYLA Primary Care Unavailable AICHHOLZ, BOOMSWING OPERATOR MCKAYLA Attending Unavailable AICHHOLZ, BOOMSWING OPERATOR MCKAYLA Consulting Unavailable DR PATRICIA IVAN Consulting Unavailable TAMLYN ., CECILIA Attending Unavailable TAMLYN ., CECILIA Admitting Unavailable DR PATRICIA IVAN Consulting Unavailable AICHHOLZ, BOOMSWING OPERATOR MCKAYLA Primary Care Unavailable TAMLYN ., CECILIA Consulting Unavailable MORTENSEN ., DR CHAPARRO Aguillon Attending Unavailable FESTUS ., DR CHAPARRO Aguillon Consulting Unavailable FESTUS ., DR CHAPARRO Aguillon Admitting Unavailable AICHHOLZ, BOOMSWING OPERATOR MCKAYLA Primary Care Unavailable HATTIE BRODERICK Attending Unavailable AHTTIE BRODERICK Consulting Unavailable HATTIE BRODERICK Admitting Unavailable AICHHOLZ, BOOMSWING OPERATOR MCKAYLA Primary Care Unavailable HATTIE BAUTISTA Unavailable AICHHOLZ, SAYDA MCKAYLA Admitting Unavailable AICHHOLZ, BOOMSWING OPERATOR MCKAYLA Attending Unavailable AICHHOLZ, BOOMSWING OPERATOR MCKAYLA Consulting Unavailable AICHHOLZ, BOOMSWING OPERATOR MCKAYLA Primary Care Unavailable Ty Amin MD Primary Care Provider [phone] BHARAT AGUILAR Attending Unavailable AICHHOLZ, MCKAYLA Attending Unavailable AICHHOLZ, MCKAYLA Attending Unavailable AICHHOLZ, MCKAYLA Attending Unavailable AICHHOLZ, MCKAYLA Attending Unavailable AICHHOLZ, MCKAYLA Attending Unavailable AICHHOLZ, MCKAYLA Attending Unavailable Ty Amin MD Primary Care Provider Aichholz FRAME CLEANER, Mckayla Unavailable Aichholz FRAME CLEANER, Mckayla Unavailable SARAH VEGA Attending Unavailable SARAH VEGA Attending Unavailable Allergies Allergy Classification Reported Allergen(s) Allergy Type Date of Onset Reaction(s) Facility (1 source) No Known Medication Allergies; Translations: [No Known Medication Allergies] Propensity to adverse reactions (disorder) [facility] Repository Medications Current Medications Medication Drug Class(es) Dates Sig (Normalized) Sig (Original) acetaminophen 325 mg / HYDROcodone bitartrate 5 mg oral tablet (9 sources) Opioid Agonist Start: 02-06-2022 acetaminophen-hydr ocodone 325 mg-5 mg oral tablet Refill(s) 0 Start Date: 02/06/22 Status: Ordered HYDROcodone-acet aminophen ([place]) 5-325 MG tablet 1 tablet 3 (three) times a day as needed for severe pain. Active take 1 tablet by vandana twice daily as needed [place] 5-325 MG 1 tablet as needed Orally [...] complication, with long-term current use of insulin ([facility]) Chew 1 tablet (81 mg) Daily [...] (4 sources) GLP-1 Receptor Agonist Start: 02-06-2022 Trpavel ty Pen 4.5 mg/0.5 mL subcutaneous solution [...] Serotonin and Norepinephrine Reuptake Inhibitor Start: End: 025 take 1 capsule by mouth [...] every week ergocalciferol (Vitamin D2) 1.25 MG (50346 UT) capsule Indications: Vitamin D deficiency, unspecified TAKE 1 CAPSULE BY MOUTH ONE TIME PER WEEK 12 capsule 1 04/06/2024 Active take 1 capsule by mouth every we ek ergocalciferol (Vitamin D-2) 1.25 MG (68610 UT) capsule Take 1.25 mg by mouth [...] 02-06-2022 Chronic Other aftercare (1 source) Other long-term (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 therapy; Translations: [OTH JAIL CURRENT DRUG THERAPY] Onset: 3 Episodic Other aftercare (1 source) penitentiary (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; Translations: [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 Family History Problem Relation Age of Onset Heart attack Paternal Grandmother Family Status - Relation Status Age at Paternal Grandmother Level of Service:71525 [place] OFFICE/OUTPATIENT NEW LOW MDM 30 MINUTES Normal [facility] CBC AUTO DIFFon 12-06-2022 BASO # 0.0 103/ul Normal 0.0-0.1 [facility] Comment on above: Performed By: #### C BC #### [facility] [address] [place] [address] Dr. Ashlie Hills Basophils/100 WBC (Bld) 0.1 % Critically low 0.2-2.0 [facility] Comment on above: Performed By: #### C BC #### [facility] [address] [place] [address] Dr. Ashlie Hills EO # 0.0 103/ul Normal 0.0-0.7 [facility] Comment on above: Performed By: #### C BC #### [facility] [address] [address] [address] Ashlie Hills Eosinophils/100 WBC (Bld) 0.0 % Critically low 0.9-7.0 [facility] Comment on above: Performed By: #### C BC #### [facility] [address] [place] [address] Dr. Ashlie Hills Erythrocyte distribution width (RBC) [Ratio] 14.9 % Normal 11.0-15.0 [facility] Comment on above: Performed By: #### C BC #### [facility] [address] [place] [address] Dr. Ashlie Hills Hematocrit (Bld) [Volume fraction] 46.2 % Normal 36.0-48.0 [facility] Comment on above: Performed By: #### C BC #### [facility] [address] [place] [address] Dr. Ashlie Hills Hemoglobin (Bld) [Mass/Vol] 14.7 g/dL Normal 12.0-16.0 [facility] Comment on above: Performed By: #### C BC #### [facility] [address] [place] [address] Dr. Ashlie Hills IG # 0.06 10e3/ul Critically high 0.00-0.03 [facility] Comment on above: Performed By: #### C BC #### [facility] [address] [place] [address] Dr. Ashlie Hills IG % 0.4 % Normal 0.0-0.5 [facility] Comment on above: Performed By: #### C BC #### [facility] [address] [place] [address] Dr. Ashlie Hills LYMPH # 1.3 103/ul Normal 1.2-3.8 [facility] Comment on above: Performed By: #### C BC #### [facility] [address] [place] [address] Dr. Ashlie Hills Lymphocytes/100 WBC (Bld) 9.4 % Critically low 20.5-60.0 [facility] Comment on above: Performed By: #### C BC #### [facility] [address] [place] [address] Dr. Ashlie Hills MANUAL DIFF REQ NO Normal [facility] Comment on above: Performed By: #### C BC #### [facility] [address] [place] [address] Dr. Ashlie Hills MCH (RBC) [Entitic mass] 28.4 pg Normal 26.7-34.0 [facility] Comment on above: Performed By: #### C BC #### [facility] [address] [place] [address] Dr. Ashlie Hills MCHC (RBC) [Mass/Vol] 31.8 g/dL Normal 29.9-35.2 [facility] Comment on above: Performed By: #### C BC #### [facility] [address] [place] [address] Dr. Ashlie Hills MCV (RBC) [Entitic vol] 89.4 fL Normal 81.0-99.0 [facility] Comment on above: Performed By: #### C BC #### [facility] [address] [place] [address] Dr. Ashlie Hills MONO # 0.5 103/ul Normal 0.3-0.8 [facility] Comment on above: Performed By: #### C BC #### [facility] [address] [place] [address] Dr. Ashlie Hills Monocytes/100 WBC (Bld) 3.4 % Normal 1.7-12.0 [facility] Comment on above: Performed By: #### C BC #### [facility] [address] [place] [address] Dr. Ashlie Hills NEUT # 11.8 103/ul Critically high 1.4-6.5 [facility] Comment on above: Performed By: #### C BC #### [facility] [address] [place] [address] Dr. Ashlie Hills Neutrophils/100 WBC (Bld) 86.7 % Critically high 43.0-75.0 [facility] Comment on above: Performed By: #### C BC #### [facility] [address] [place] [address] Dr. Ashlie Hills Platelet mean volume (Bld) [Entitic vol] 12.6 fL Normal 9.5-13.5 [facility] Comment on above: Performed By: #### C BC #### [facility] [address] [place] [address] Dr. Ashlie Hills PLT 133 103/ul Critically low 150-450 [facility] Comment on above: Performed By: #### C BC #### [facility] [address] [place] [address] Dr. Ashlie Hills RBC 5.17 106/ul Normal 4.20-5.40 [facility] Comment on above: Performed By: #### C BC #### [facility] [address] [address] [address] Ashlie Hills WBC 13.6 103/ul Critically high 4.0-11.0 [facility] Comment on above: Performed By: #### C BC #### [facility] [address] [place] [address] Dr. Ashlie Hills MAGNESIUMon 12-06-2022 Magnesium [Mass/Vol] 2.2 mg/dL Normal 1.8-2.4 [facility] Comment on above: Performed By: #### I NFLUAB #### [facility] [address] [place] [address] Dr. Ashlie Hills POINT OF CARE GLUCOSEon 11-08 Glucose [Mass/Vol] 340 mg/dL Critically high 74-106 [facility] Comment on above: Performed By: #### P OCGLUC #### [facility] [address] [place] [address] Dr. Ashlie Hills Glucose [Mass/Vol] 276 mg/dL Critically high 74-106 [facility] Comment on above: Performed By: #### C BC #### [facility] [address] [place] [address] Dr. Ashlie Hills Glucose [Mass/Vol] 333 mg/dL Critically high -106 [facility] Comment on above: Performed By: #### C BC #### [facility] [address] [place] [address] Dr. Ashlie Hills PROF CHEM 8 (BAS METB)on Anion gap [Moles/Vol] 10.9 mmol/L Normal [facility] Comment on above: Performed By: #### I NFLUAB #### [facility] [address] [address] [address] Ashlie Hills Calcium [Mass/Vol] 9.3 mg/dL Normal 8.5-10.1 [facility] Comment on above: Performed By: #### I NFLUAB #### [facility] [address] [address] [address] Ashlie Hills Chloride [Moles/Vol] 103 mmol/L Normal 98-107 [facility] Comment on above: Performed By: #### I NFLUAB #### [facility] [address] [address] [address] Ashlie Hills CO2 [Moles/Vol] 31.2 mmol/L Normal 21.0-32.0 [facility] Comment on above: Performed By: #### I NFLUAB #### [facility] [address] [place] [address] Dr. Ashlie Hills Creatinine [Mass/Vol] 0.96 mg/dL Normal 0.55-1.02 [facility] Comment on above: Performed By: #### I NFLUAB #### [facility] [address] [address] [address] Ashlie Hills EGFR-AF GUYANESE >60 Normal >=60 [facility] Comment on above: Performed By: #### I NFLUAB #### [facility] [address] [place] [address] Dr. Ashlie Hills EGFR-NON AF GUYANESE >60 Normal >=60 [facility] Comment on above: Performed By: #### I NFLUAB #### [facility] [address] [address] [address] Ashlie Hills Glucose [Mass/Vol] 288 mg/dL Critically high 74-106 [facility] Comment on above: Performed By: #### I NFLUAB #### [facility] [address] [address] [address] Ashlie Hills Potassium [Moles/Vol] 5.1 mmol/L Normal 3.5-5.1 [facility] Comment on above: Performed By: #### I NFLUAB #### [facility] [address] [place] [address] Dr. Ashlie Hills Sodium [Moles/Vol] 140 mmol/L Normal 136-145 [facility] Comment on above: Performed By: #### I NFLUAB #### [facility] [address] [place] [address] Dr. Ashlie Hills Urea nitrogen [Mass/Vol] 30.0 mg/dL Critically high 7.0-18.0 [facility] Comment on above: Performed By: #### I NFLUAB #### [facility] [address] [place] [address] Dr. Ashlie Hills Urea nitrogen/Creatinine [Mass ratio] 31.2 mg/mg Normal [facility] Comment on above: Performed By: #### I NFLUAB #### [facility] [address] [place] [address] Dr. Ashlie Hills CBC AUTO DIFFon 12-05-2022 BASO # 0.0 103/ul Normal 0.0-0.1 [facility] Comment on above: Performed By: #### C BC #### [facility] [address] [place] [address] Dr. Ashlie Hills Basophils/100 WBC (Bld) 0.4 % Normal 0.2-2.0 [facility] Comment on above: Performed By: #### C BC #### [facility] [address] [place] [address] Dr. Ashlie Hills EO # 0.0 103/ul Normal 0.0-0.7 [facility] Comment on above: Performed By: #### C BC #### [facility] [address] [place] [address] Dr. Ashlie Hills Eosinophils/100 WBC (Bld) 0.0 % Critically low 0.9-7.0 [facility] Comment on above: Performed By: #### C BC #### [facility] [address] [place] [address] Dr. Ashlie Hills Erythrocyte distribution width (RBC) [Ratio] 14.8 % Normal 11.0-15.0 [facility] Comment on above: Performed By: #### C BC #### [facility] [address] [address] [address] Ashlie Hills Hematocrit (Bld) [Volume fraction] 49.9 % Critically high 36.0-48.0 [facility] Comment on above: Performed By: #### C BC #### [facility] [address] [address] [address] Ashlie Hills Hemoglobin (Bld) [Mass/Vol] 15.7 g/dL Normal 12.0-16.0 [facility] Comment on above: Performed By: #### C BC #### [facility] [address] [address] [address] Ashlie Hills IG # 0.04 10e3/ul Critically high 0.00-0.03 [facility] Comment on above: Performed By: #### C BC #### [facility] [address] [place] [address] Dr. Ashlie Hills IG % 0.5 % Normal 0.0-0.5 [facility] Comment on above: Performed By: #### C BC #### [facility] [address] [place] [address] Dr. Ashlie Hills LYMPH # 1.1 103/ul Critically low 1.2-3.8 [facility] Comment on above: Performed By: #### C BC #### [facility] [address] [place] [address] Dr. Ashlie Hills Lymphocytes/100 WBC (Bld) 12.7 % Critically low 20.5-60.0 [facility] Comment on above: Performed By: #### C BC #### [facility] [address] [place] [address] Dr. Ashlie Hills MANUAL DIFF REQ NO Normal [facility] Comment on above: Performed By: #### C BC #### [facility] [address] [place] [address] Dr. Ashlie Hills MCH (RBC) [Entitic mass] 28.1 pg Normal 26.7-34.0 [facility] Comment on above: Performed By: #### C BC #### [facility] [address] [place], [place] [id number] Dr. Ashlie Hills MCHC (RBC) [Mass/Vol] 31.5 g/dL Normal 29.9-35.2 [facility] Comment on above: Performed By: #### C BC #### [facility] [address] [place] [address] Dr. Ashlie Hills MCV (RBC) [Entitic vol] 89.3 fL Normal 81.0-99.0 [facility] Comment on above: Performed By: #### C BC #### [facility] [address] [place] [address] Dr. Ashlie Hills MONO # 0.1 103/ul Critically low 0.3-0.8 [facility] Comment on above: Performed By: #### C BC #### [facility] [address] [place] [address] Dr. Ashlie Hills Monocytes/100 WBC (Bld) 1.3 % Critically low 1.7-12.0 [facility] Comment on above: Performed By: #### C BC #### [facility] [address] [place] [address] Dr. Ashlie Hills NEUT # 7.2 103/ul Critically high 1.4-6.5 [facility] Comment on above: Performed By: #### C BC #### [facility] [address] [place] [address] Dr. Ashlie Hills Neutrophils/100 WBC (Bld) 85.1 % Critically high 43.0-75.0 [facility] Comment on above: Performed By: #### C BC #### [facility] [address] [place] [address] Dr. Ashlie Hills Platelet mean volume (Bld) [Entitic vol] 12.2 fL Normal 9.5-13.5 [facility] Comment on above: Performed By: #### C BC #### [facility] [address] [place] [address] Dr. Ashlie Hills PLT 116 103/ul Critically low 150-450 [facility] Comment on above: Performed By: #### C BC #### [facility] [address] [place], [place] [address] Dr. Ashlie Hills RBC 5.59 106/ul Critically high 4.20-5.40 [facility] Comment on above: Performed By: #### C BC #### [facility] [address] [address] [address] Ashlie Hills WBC 8.5 103/ul Normal 4.0-11.0 [facility] Comment on above: Performed By: #### C BC #### [facility] [address] [id number] [address] Ashlie Hills CTA CHEST WO W CONon 2 023 CTA CHEST WO W CON EXAMINATION: [...] HATTIE GOFF Date: 2022-12-05 01:52 Normal [facility] MAGNESIUMon 12-05-2022 Magnesium [Mass/Vol] 2.1 mg/dL Normal 1.8-2.4 [facility] Comment on above: Performed By: #### P OCGLUC #### [facility] [address] [address] [address] Ashlie Hills POINT OF CARE GLUCOSEon 11-08 Glucose [Mass/Vol] 293 mg/dL Critically high -106 [facility] Comment on above: Performed By: #### P OCGLUC #### [facility] [address] [address] [address] Ashlie Hills Glucose [Mass/Vol] 269 mg/dL Critically high [facility]106 [facility] Comment on above: Performed By: #### P OCGLUC #### [facility] [address] [place] [address] Dr. Ashlie Hills Glucose [Mass/Vol] 223 mg/dL Critically high [facility]106 [facility] Comment on above: Performed By: #### C VDAGS #### [facility] [address] [address] [address] Ashlie Hills PROF CHEM 8 (BAS METB)on Anion gap [Moles/Vol] 11.6 mmol/L Normal [facility] Comment on above: Performed By: #### P OCGLUC #### [facility] [address] [place] [address] Dr. Ashlie Hills Calcium [Mass/Vol] 9.2 mg/dL Normal 8.5-10.1 [facility] Comment on above: Performed By: #### P OCGLUC #### [facility] [address] [address] [address] Ashlie Hills Chloride [Moles/Vol] 102 mmol/L Normal 98-107 [facility] Comment on above: Performed By: #### P OCGLUC #### [facility] [address] [place] [address] Dr. Ashlie Hills CO2 [Moles/Vol] 28.7 mmol/L Normal 21.0-32.0 [facility] Comment on above: Performed By: #### P OCGLUC #### [facility] [address] [address] [address] Ashlie Hills Creatinine [Mass/Vol] 1.04 mg/dL Critically high 0.55-1.02 [facility] Comment on above: Performed By: #### P OCGLUC #### [facility] [address] [address] [address] Ashlie Hills EGFR-AF GUYANESE >60 Normal >=60 [facility] Comment on above: Performed By: #### P OCGLUC #### [facility] [address] [address] [address] Ashlie Hills EGFR-NON AF GUYANESE 56 mL/min/1.73m2 Critically low >=60 [facility] Comment on above: Performed By: #### P OCGLUC #### [facility] [address] [address] [address] Ashlie Hills Glucose [Mass/Vol] 231 mg/dL Critically high 74-106 T [facility] Comment on above: Performed By: #### P OCGLUC #### [facility] [address] [address] [address] Ashlie Hills Potassium [Moles/Vol] 4.3 mmol/L Normal 3.5-5.1 [facility] Comment on above: Performed By: #### P OCGLUC #### [facility] [address] [address] [address] Ashlie Hills Sodium [Moles/Vol] 138 mmol/L Normal 136-145 [facility] Comment on above: Performed By: #### P OCGLUC #### [facility] [address] [address] [address] Ashlie Hills Urea nitrogen [Mass/Vol] 17.0 mg/dL Normal 7.0-18.0 [facility] Comment on above: Performed By: #### P OCGLUC #### [facility] [address] [address] [address] Ashlie Hills Urea nitrogen/Creatinine [Mass ratio] 16.3 mg/mg Normal [facility] Comment on above: Performed By: #### P OCGLUC #### [facility] [address] [place] [address] Dr. Ashlie Hills RESPIRATORY PANEL PLUSon Adenovirus Not detected Normal NOT DETECTED [facility] Comment on above: Performed By: #### C VDAGS #### [facility] [address] [place] [address] Dr. Ashlie Shaffer. Parapertusis Not detected Normal NOT DETECTED The [facility] Comment on above: Performed By: #### C VDAGS #### [facility] [address] [place] [address] Dr. Ashlie Shaffer. Pertussis Not detected Normal NOT DETECTED The [facility] Comment on above: Performed By: #### C VDAGS #### [facility] [address] [place] [address] Dr. Ashlie Hills Chlamydia Pneumoniae Not detected Normal NOT DETECTED [facility] Comment on above: Performed By: #### C VDAGS #### [facility] [address] [place] [address] Dr. Ashlie Hills Coronavirus 229E Not detected Normal NOT DETECTED [facility] Comment on above: Performed By: #### C VDAGS #### [facility] [address] [place] [address] Dr. Ashlie Hills Coronavirus HKU1 Not detected Normal NOT DETECTED [facility] Comment on above: Performed By: #### C VDAGS #### [facility] [address] [place] [address] Dr. Ashlie Hills Coronavirus NL63 Not detected Normal NOT DETECTED [facility] Comment on above: Performed By: #### C VDAGS #### [facility] [address] [place] [address] Dr. Ashlie Hills Coronavirus OC43 Not detected Normal NOT DETECTED [facility] Comment on above: Performed By: #### C VDAGS #### [facility] [address] [place] [address] Dr. Ashlie Hills Influenza A H1 Not detected Normal NOT DETECTED The [facility] Comment on above: Performed By: #### C VDAGS #### [facility] [address] [place] [address] Dr. Ashlie Hills Influenza A H1 2009 Not detected Normal NOT DETECTED [facility] Comment on above: Performed By: #### C VDAGS #### [facility] [address] [address] [address] Ashlie Hills Influenza A H3 Not detected Normal NOT DETECTED [facility] Comment on above: Performed By: #### C VDAGS #### [facility] [address] [address] [address] Ashlie Hills Influenza B Not detected Normal NOT DETECTED [facility] Comment on above: Performed By: #### C VDAGS #### [facility] [address] [address] [address] Ashlie Hills Metapneumovirus Not detected Normal NOT DETECTED [facility] Comment on above: Performed By: #### C VDAGS #### [facility] [address] [address] [address] Ashlie Hills Mycoplas. Pneumoniae Not detected Normal NOT DETECTED [facility] Comment on above: Performed By: #### C VDAGS #### [facility] [address] [address] [address] Ashlie Hills Parainfluenza 1 Not detected Normal NOT DETECTED [facility] Comment on above: Performed By: #### C VDAGS #### [facility] [address] [address] [address] Ashlie Hills Parainfluenza 2 Not detected Normal NOT DETECTED [facility] Comment on above: Performed By: #### C VDAGS #### [facility] [address] [address] [address] Ashlie Hills Parainfluenza 3 Detected Abnormal NOT DETECTED The [facility] Comment on above: Performed By: #### C VDAGS #### [facility] [address] [address] [address] Ashlie Hills Parainfluenza 4 Not detected Normal NOT DETECTED [facility] Comment on above: Performed By: #### C VDAGS #### [facility] [address] [address] [address] Ashlie Hills Rhino/Enterovirus Not detected Normal NOT DETECTED [facility] Comment on above: Performed By: #### C VDAGS #### [facility] [address] [place] [address] Dr. Ashlie Hills RP2 Header 1 RESPIRATORY PANEL: VIRUSES Normal [facility] Comment on above: Performed By: #### C VDAGS #### [facility] [address] [place] [address] Dr. Ashlie Hills RP2 Header 2 RESPIRATORY PANEL: BACTERIA Normal [facility] Comment on above: Performed By: #### C VDAGS #### [facility] [address] [place] [address] Dr. Ashlie Hills RSV Not detected Normal NOT DETECTED [facility] Comment on above: Performed By: #### C VDAGS #### [facility] [address] [place] [address] Dr. Ashlie Hills SARS-CoV-2 (COVID-19) RNA MADDY+probe Ql (Unsp spec) Not detected Normal NOT DETECTED [facility] Comment on above: Performed By: #### C VDAGS #### [facility] [address] [place] [address] Dr. Ashlie Hills XR CHEST 1 Von [...] by: MARYANNE POWER Date: 2022-12-04 22:23 Normal [facility] BLOOD GASES BTYon 12-04-2022 02 MODE ROOM AIR Normal [facility] Comment on above: Performed By: #### C BC #### [facility] [address] [place] [address] Dr. Ashlie Hills ALLENS TEST Positive Normal [facility] Comment on above: Performed By: #### C BC #### [facility] [address] [address] [address] Ashlie Hills Base excess Calc (Bld) [Moles/Vol] 5.4 mmol/L Critically high -2.0-2.0 [facility] Comment on above: Performed By: #### C BC #### [facility] [address] [address] [address] Ashlie Hills BIPAP PRESSURE Normal [facility] Comment on above: Performed By: #### C BC #### [facility] [address] [address] [address] Ashlie Hills CPAP [facility] Comment on above: Performed By: #### C BC #### [facility] [address] [place] [address] Dr. Ashlie Hills FIO2 [facility] Comment on above: Performed By: #### C BC #### [facility] [address] [place] [address] Dr. Ashlie Hills HCO3 (Bld) [Moles/Vol] 30.8 mmol/L Critically high 22.0-26.0 [facility] Comment on above: Performed By: #### C BC #### [facility] [address] [place] [address] Dr. Ashlie Hills LPM [facility] Comment on above: Performed By: #### C BC #### [facility] [address] [place] [address] Dr. Ashlie Hills MINUTE VOLUME Normal [facility] Comment on above: Performed By: #### C BC #### [facility] [address] [place] [address] Dr. Ashlie Hills Oxygen (Bld) [Partial pressure] 46.3 mm[Hg] Critically low 80.0-100.0 [facility] Comment on above: Performed By: #### C BC #### [facility] [address] [place] [address] Dr. Ashlie Hills Oxygen saturation in Blood 83.9 % Critically low 95.0-100.0 [facility] Comment on above: Performed By: #### C BC #### [facility] [address] [address] [address] Ashlie Hills PCO2 54.2 mmHg Critically high 35.0-45.0 [facility] Comment on above: Performed By: #### C BC #### [facility] [address] [place] [address] Dr. Ashlie Hills PEEP [facility] Comment on above: Performed By: #### C BC #### [facility] [address] [address] [address] Ashlie Hills pH (Bld) 7.363 [pH] Normal 7.350-7.450 [facility] Comment on above: Performed By: #### C BC #### [facility] [address] [place] [address] Dr. Ashlie Hills [facility] Comment on above: Performed By: #### C BC #### [facility] [address] [place] [address] Dr. Ashlie Hills [facility] Comment on above: Performed By: #### C BC #### [facility] [address] [place] [address] Dr. Ashlie Hills PUNCTURE SITE LR [facility] Comment on above: Performed By: #### C BC #### [facility] [address] [place] [address] Dr. Ashlie Hills RATE [facility] Comment on above: Performed By: #### C BC #### [facility] [address] [place] [address] Dr. Ashlie Hills VENT MODE [facility] Comment on above: Performed By: #### C BC #### [facility] [address] [place] [address] Dr. Ashlie Hills [facility] Comment on above: Performed By: #### C BC #### [facility] [address] [place] [address] Dr. Ashlie Hills BNPon 12-04-2022 Natriuretic peptide B (Bld) [Mass/Vol] 76.0 pg/mL Normal <=900.0 [facility] Comment on above: Performed By: #### P OCGLUC #### [facility] [address] [address] [address] Ashlie Hills CBC AUTO DIFFon 12-04-2022 BASO # 0.1 103/ul Normal 0.0-0.1 [facility] Comment on above: Performed By: #### C BC #### [facility] [address] [address] [address] Ashlie Hills Basophils/100 WBC (Bld) 0.6 % Normal 0.2-2.0 [facility] Comment on above: Performed By: #### C BC #### [facility] [address] [address] [address] Ashlie Hills EO # 0.2 103/ul Normal 0.0-0.7 [facility] Comment on above: Performed By: #### C BC #### [facility] [address] [address] [address] Ashlie Hills Eosinophils/100 WBC (Bld) 1.9 % Normal 0.9-7.0 [facility] Comment on above: Performed By: #### C BC #### [facility] [address] [address] [address] Ashlie Hills Erythrocyte distribution width (RBC) [Ratio] 15.0 % Normal 11.0-15.0 [facility] Comment on above: Performed By: #### C BC #### [facility] [address] [address] [address] Ashlie Hills Hematocrit (Bld) [Volume fraction] 49.1 % Critically high 36.0-48.0 [facility] Comment on above: Performed By: #### C BC #### [facility] [address] [address] [address] Ashlie Hills Hemoglobin (Bld) [Mass/Vol] 15.6 g/dL Normal 12.0-16.0 [facility] Comment on above: Performed By: #### C BC #### [facility] [address] [address] [address] Ashlie Hills IG # 0.02 10e3/ul Normal 0.00-0.03 [facility] Comment on above: Performed By: #### C BC #### [facility] [address] [place] [address] Dr. Ashlie Hills IG % 0.2 % Normal 0.0-0.5 [facility] Comment on above: Performed By: #### C BC #### [facility] [address] [place] [address] Dr. Ashlie Hills LYMPH # 2.8 103/ul Normal 1.2-3.8 [facility] Comment on above: Performed By: #### C BC #### [facility] [address] [place] [address] Dr. Ashlie Hills Lymphocytes/100 WBC (Bld) 29.9 % Normal 20.5-60.0 [facility] Comment on above: Performed By: #### C BC #### [facility] [address] [place] [address] Dr. Ashlie Hills MANUAL DIFF REQ NO Normal [facility] Comment on above: Performed By: #### C BC #### [facility] [address] [place] [address] Dr. Ashlie Hlils MCH (RBC) [Entitic mass] 28.5 pg Normal 26.7-34.0 [facility] Comment on above: Performed By: #### C BC #### [facility] [address] [place] [address] Dr. Ashlie Hills MCHC (RBC) [Mass/Vol] 31.8 g/dL Normal 29.9-35.2 [facility] Comment on above: Performed By: #### C BC #### [facility] [address] [place] [address] Dr. Ashlie Hills MCV (RBC) [Entitic vol] 89.8 fL Normal 81.0-99.0 [facility] Comment on above: Performed By: #### C BC #### [facility] [address] [place] [address] Dr. Ashlie Hills MONO # 1.0 103/ul Critically high 0.3-0.8 [facility] Comment on above: Performed By: #### C BC #### [facility] [address] [address] [address] Ashlie Hills Monocytes/100 WBC (Bld) 10.6 % Normal 1.7-12.0 [facility] Comment on above: Performed By: #### C BC #### [facility] [address] [address] [address] Ashlie Hills NEUT # 5.3 103/ul Normal 1.4-6.5 [facility] Comment on above: Performed By: #### C BC #### [facility] [address] [place] [address] Dr. Ashlie Hills Neutrophils/100 WBC (Bld) 56.8 % Normal 43.0-75.0 [facility] Comment on above: Performed By: #### C BC #### [facility] [address] [place] [address] Dr. Ashlie Hills Platelet mean volume (Bld) [Entitic vol] 12.5 fL Normal 9.5-13.5 [facility] Comment on above: Performed By: #### C BC #### [facility] [address] [place] [address] Dr. Ashlie Hills PLT 109 103/ul Critically low 150-450 [facility] Comment on above: Performed By: #### C BC #### [facility] [address] [place] [address] Dr. Ashlie Hills RBC 5.47 106/ul Critically high 4.20-5.40 [facility] Comment on above: Performed By: #### C BC #### [facility] [address] [place] [address] Dr. Ashlie Hills WBC 9.4 103/ul Normal 4.0-11.0 [facility] Comment on above: Performed By: #### C BC #### [facility] [address] [place] [address] Dr. Ashlie Hills PROF 14(COMP METB)on 023 Albumin [Mass/Vol] 2.9 g/dL Critically low 3.4-5.0 [facility] Comment on above: Performed By: #### C BC #### [facility] [address] [place] [address] Dr. Ashlie Hills Albumin/Globulin [Mass ratio] 0.6 {ratio} Normal [facility] Comment on above: Performed By: #### C BC #### [facility] [address] [place] [address] Dr. Ashlie Hills ALP [Catalytic activity/Vol] 64 U/L Normal 46-116 [facility] Comment on above: Performed By: #### C BC #### [facility] [address] [place] [address] Dr. Ashlie Hills ALT [Catalytic activity/Vol] 16 U/L Normal 14-59 [facility] Comment on above: Performed By: #### C BC #### [facility] [address] [place] [address] Dr. Ashlie Hills Anion gap [Moles/Vol] 9.6 mmol/L Normal [facility] Comment on above: Performed By: #### C BC #### [facility] [address] [place] [address] Dr. Ashlie Hills AST [Catalytic activity/Vol] 16 U/L Normal 15-37 [facility] Comment on above: Performed By: #### C BC #### [facility] [address] [place] [address] Dr. Ashlie Hills Bilirubin [Mass/Vol] 0.5 mg/dL Normal 0.2-1.0 [facility] Comment on above: Performed By: #### C BC #### [facility] [address] [place] [address] Dr. Ashlie Hills Calcium [Mass/Vol] 8.7 mg/dL Normal 8.5-10.1 [facility] Comment on above: Performed By: #### C BC #### [facility] [address] [place] [address] Dr. Ashlie Hills Chloride [Moles/Vol] 103 mmol/L Normal 98-107 [facility] Comment on above: Performed By: #### C BC #### [facility] [address] [place] [address] Dr. Ashlie Hills CO2 [Moles/Vol] 30.7 mmol/L Normal 21.0-32.0 [facility] Comment on above: Performed By: #### C BC #### [facility] [address] [place] [address] Dr. Ashlie Hills Creatinine [Mass/Vol] 0.96 mg/dL Normal 0.55-1.02 [facility] Comment on above: Performed By: #### C BC #### [facility] [address] [place] [address] Dr. Ashlie Hills EGFR-AF GUYANESE >60 Normal >=60 [facility] Comment on above: Performed By: #### C BC #### [facility] [address] [place] [address] Dr. Ashlie Hills EGFR-NON AF GUYANESE >60 Normal >=60 [facility] Comment on above: Performed By: #### C BC #### [facility] [address] [place] [address] Dr. Ashlie Hills Globulin (S) [Mass/Vol] 4.7 g/dL Normal [facility] Comment on above: Performed By: #### C BC #### [facility] [address] [place] [address] Dr. Ashlie Hills Glucose [Mass/Vol] 170 mg/dL Critically high 74-106 [facility] Comment on above: Performed By: #### C BC #### [facility] [address] [place] [address] Dr. Ashlie Hills Potassium [Moles/Vol] 4.3 mmol/L Normal 3.5-5.1 [facility] Comment on above: Performed By: #### C BC #### [facility] [address] [place] [address] Dr. Ashlie Hills Protein [Mass/Vol] 7.6 g/dL Normal 6.4-8.2 [facility] Comment on above: Performed By: #### C BC #### [facility] [address] [place] [address] Dr. Ashlie Hills Sodium [Moles/Vol] 139 mmol/L Normal 136-145 [facility] Comment on above: Performed By: #### C BC #### [facility] [address] [address] [address] Ashlie Hills Urea nitrogen [Mass/Vol] 16.0 mg/dL Normal 7.0-18.0 [facility] Comment on above: Performed By: #### C BC #### [facility] [address] [address] [address] Ashlie Hills Urea nitrogen/Creatinine [Mass ratio] 16.7 mg/mg Normal [facility] Comment on above: Performed By: #### C BC #### [facility] [address] [address] [address] Ashlie Hills SYMPTOMATIC COVID-19 ANTIGEN on 12-04-2022 EUA Statement SEE BELOW Normal [facility] [...] VDAGS #### [facility] [address] [place], [place] [id number] Dr. Ashlie Hills SARS-CoV-2 (COVID-19) RNA MADDY+probe Ql (Unsp spec) Negative Normal NEGATIVE [facility] Comment on above: Performed By: #### C VDAGS #### [facility] [address] [place] [address] Dr. Ashlie Hills TROPONIN, HIGH SENSITIVITYon 12-04-2022 HSTROP 8.9 pg/mL Normal 4.0-51.3 [facility] Comment on above: Result Comment: CUT- OFF POINTS HAVE BEEN ESTABLISHED BASED ON THE FOURTH UNIVERSAL DEFINITIONS OF MYOCARDIAL INFARCTION. THE UPPER REFERENCE LIMIT (URL) OF TROPONIN, DEFINED THE 99TH PERCENTILE OF cTnI DISTRIBUTION IN A REFERENCE POPULATION, HAS BEEN CONFIRMED THE DECISION THRESHOLD FOR [place] DIAGNOSIS. Performed By: #### P OCGLUC #### [facility] [address] [place] [address] Dr. Ashlie Hills MICROALBUMIN, RAND URon 11-06 mALB 35.8 mg/dL Critically high <=30.0 [facility] Comment on above: Performed By: #### C VDAGS #### [facility] [address] [place] [address] Dr. Ashlie Hills UA RANDOM W/MICROSCOPICon BACTERIA NONE SEEN Normal NONE SEEN [facility] Comment on above: Performed By: #### C VDAGS #### [facility] [address] [place] [address] Dr. Ashlie Hills Bilirubin Ql (U) Negative Normal NEGATIVE [facility] Comment on above: Performed By: #### C VDAGS #### [facility] [address] [place] [address] Dr. Ashlie Hills CAST SEEN Abnormal NONE SEEN [facility] Comment on above: Performed By: #### C VDAGS #### [facility] [address] [place] [address] Dr. Ashlie Hills Clarity (U) CLEAR Normal CLEAR [facility] Comment on above: Performed By: #### C VDAGS #### [facility] [address] [place] [address] Dr. Ashlie Hills Color (U) YELLOW Normal YELLOW [facility] Comment on above: Performed By: #### C VDAGS #### [facility] [address] [place] [address] Dr. Ashlie Hills Crystals LM Nom (Urine sed) NONE SEEN Normal NONE SEEN [facility] Comment on above: Performed By: #### C VDAGS #### [facility] [address] [place] [address] Dr. Ashlie Hills Epithelial cells LM Ql (Urine sed) MODERATE Abnormal NONE SEEN /RARE [facility] Comment on above: Performed By: #### C VDAGS #### [facility] [address] [place] [address] Dr. Ashlie Hills Glucose Ql (U) Negative Normal NEGATIVE [facility] Comment on above: Performed By: #### C VDAGS #### [facility] [address] [address] [address] Ashlie Hills Hemoglobin Ql (U) TRACE-INTACT Abnormal NEGATIVE [facility] Comment on above: Performed By: #### C VDAGS #### [facility] [address] [place] [address] Dr. Ashlie Hills Ketones Ql (U) Negative Normal NEGATIVE [facility] Comment on above: Performed By: #### C VDAGS #### [facility] [address] [place] [address] Dr. Ashlie Hills LEUKOCYTES Negative Normal NEGATIVE [facility] Comment on above: Performed By: #### C VDAGS #### [facility] [address] [place] [address] Dr. Ashlie Hills MUCOUS NONE SEEN Normal NONE SEEN [facility] Comment on above: Performed By: #### C VDAGS #### [facility] [facility] [address] [place] [address] Dr. Ashlie Hills Nitrite Ql (U) Negative Normal NEGATIVE [facility] Comment on above: Performed By: #### C VDAGS #### [facility] [address] [place] [address] Dr. Ashlie Hills pH (U) 5.0 [pH] Normal 5-9 [facility] Comment on above: Performed By: #### C VDAGS #### [facility] [address] [place] [address] Dr. Ashlie Hills RBC 0-2 Normal 0-2 [facility] Comment on above: Performed By: #### C VDAGS #### [facility] [address] [place] [address] Dr. Ashlie Hills SPEC GRAVITY 1.030 Abnormal 1.005-<=1.025 [facility] Comment on above: Performed By: #### C VDAGS #### [facility] [address] [address] [address] Ashlie Hills UA PROTEIN 100 mg/dl Abnormal NEGATIVE/ TRACE [facility] Comment on above: Performed By: #### C VDAGS #### [facility] [address] [place] [address] Dr. Ashlie Hills Urobilinogen Qn (U) 0.2 {Little'U}/dL Normal 0.2 - 1. 0 [facility] Comment on above: Performed By: #### C VDAGS #### [facility] [address] [place] [address] Dr. Ashlie Hills WBC NONE SEEN Normal NONE SEEN [facility] Comment on above: Performed By: #### C VDAGS #### [facility] [address] [place] [address] Dr. Ashlie Hills CBC AUTO DIFFon 11-22-2022 BASO # 0.0 103/ul Normal 0.0-0.1 [facility] Comment on above: Performed By: #### C BC #### [facility] [address] [place] [address] Dr. Ashlie Hills Basophils/100 WBC (Bld) 0.3 % Normal 0.2-2.0 [facility] Comment on above: Performed By: #### C BC #### [facility] [address] [place] [address] Dr. Ashlie Hills EO # 0.4 103/ul Normal 0.0-0.7 [facility] Comment on above: Performed By: #### C BC #### [facility] [address] [place] [address] Dr. Ashlie Hills Eosinophils/100 WBC (Bld) 3.0 % Normal 0.9-7.0 [facility] Comment on above: Performed By: #### C BC #### [facility] [address] [place] [address] Dr. Ashlie Hills Erythrocyte distribution width (RBC) [Ratio] 15.3 % Critically high 11.0-15.0 [facility] Comment on above: Performed By: #### C BC #### [facility] [address] [address] [address] Ashlie Hills Hematocrit (Bld) [Volume fraction] 52.4 % Critically high 36.0-48.0 [facility] Comment on above: Performed By: #### C BC #### [facility] [address] [place] [address] Dr. Ashlie Hills Hemoglobin (Bld) [Mass/Vol] 16.8 g/dL Critically high 12.0-16.0 [facility] Comment on above: Performed By: #### C BC #### [facility] [address] [place] [address] Dr. Ashlie Hills IG # 0.04 10e3/ul Critically high 0.00-0.03 [facility] Comment on above: Performed By: #### C BC #### [facility] [address] [place] [address] Dr. Ashlie Hills IG % 0.3 % Normal 0.0-0.5 [facility] Comment on above: Performed By: #### C BC #### [facility] [address] [place] [address] Dr. Ashlie Hills LYMPH # 4.5 103/ul Critically high 1.2-3.8 [facility] Comment on above: Performed By: #### C BC #### [facility] [address] [place] [address] Dr. Ashlie Hills Lymphocytes/100 WBC (Bld) 33.2 % Normal 20.5-60.0 [facility] Comment on above: Performed By: #### C BC #### [facility] [address] [place] [address] Dr. Ashlie Hills MANUAL DIFF REQ NO Normal [facility] Comment on above: Performed By: #### C BC #### [facility] [address] [place] [address] Dr. Ashlie Hills MCH (RBC) [Entitic mass] 28.0 pg Normal 26.7-34.0 [facility] Comment on above: Performed By: #### C BC #### [facility] [address] [address] [address] Ashlie Hills MCHC (RBC) [Mass/Vol] 32.1 g/dL Normal 29.9-35.2 [facility] Comment on above: Performed By: #### C BC #### [facility] [address] [address] [address] Ashlie Hills MCV (RBC) [Entitic vol] 87.3 fL Normal 81.0-99.0 [facility] Comment on above: Performed By: #### C BC #### [facility] [address] [address] [address] Ashlie Hills MONO # 0.8 103/ul Normal 0.3-0.8 [facility] Comment on above: Performed By: #### C BC #### [facility] [address] [place] [address] Dr. Ashlie Hills Monocytes/100 WBC (Bld) 5.7 % Normal 1.7-12.0 [facility] Comment on above: Performed By: #### C BC #### [facility] [address] [place] [address] Dr. Ashlie Hills NEUT # 7.8 103/ul Critically high 1.4-6.5 [facility] Comment on above: Performed By: #### C BC #### [facility] [address] [place] [address] Dr. Ashlie Hills Neutrophils/100 WBC (Bld) 57.5 % Normal 43.0-75.0 [facility] Comment on above: Performed By: #### C BC #### [facility] [address] [address] [address] Ashlie Hills Platelet mean volume (Bld) [Entitic vol] 12.0 fL Normal 9.5-13.5 [facility] Comment on above: Performed By: #### C BC #### [facility] [address] [place] [address] Dr. Ashlie Hills PLT 152 103/ul Normal 150-450 [facility] Comment on above: Performed By: #### C BC #### [facility] [address] [address] [address] Ashlie Hills RBC 6.00 106/ul Critically high 4.20-5.40 [facility] Comment on above: Performed By: #### C BC #### [facility] [address] [address] [address] Ashlie Hills WBC 13.6 103/ul Critically high 4.0-11.0 [facility] Comment on above: Performed By: #### C BC #### [facility] [address] [place] [address] Dr. Ashlie Hills LIPID PROFILEon 11-22-2022 CHOL-HDL RATIO NORM SEE BELOW Normal [facility] Comment on above: Result Comment: 3.3 - 4.4 LOW RISK 4.4 - 7.1 AVERAGE RISK 7.1 - 11.0 MODERATE RISK >11.0 HIGH RISK Performed By: #### C BC #### [facility] [address] [place] [address] Dr. Ashlie Hills Cholesterol [Mass/Vol] 139 mg/dL Normal <=200 [facility] Comment on above: Performed By: #### C BC #### [facility] [address] [place] [address] Dr. Ashlie Hills Cholesterol in HDL [Mass/Vol] 35 mg/dL Critically low 40-60 [facility] Comment on above: Performed By: #### C BC #### [facility] [address] [place] [address] Dr. Ashlie Hills Cholesterol in LDL [Mass/Vol] 67.4 mg/dL Normal [facility] Comment on above: Performed By: #### C BC #### [facility] [address] [address] [address] Ashlie Hills Cholesterol.total/Ch olesterol in HDL [Mass ratio] 4.0 {ratio} Normal [facility] Comment on above: Performed By: #### C BC #### [facility] [address] [place] [address] Dr. Ashlie Hills HDL NORMAL > or = 60 mg/dl - LOW CARDIOVASCULAR RISK <40 mg/dl - HIGH CARDIOVASCULAR RISK Normal [facility] Comment on above: Performed By: #### C BC #### [facility] [address] [address] [address] Ashlie Hills LDL CALC NORMAL SEE BELOW Normal [facility] Comment on above: Result Comment: <100 mg/dl OPTIMAL 100 - 129 mg/dl NEAR OR ABOVE OPTIMAL 130 - 159 mg/dl BORDERLINE HIGH 160 - 189 mg/dl HIGH >190 mg/dl VERY HIGH Performed By: #### C BC #### [facility] [address] [address] [address] Ashlie Hills Triglyceride [Mass/Vol] 183 mg/dL Critically high <=150 [facility] Comment on above: Performed By: #### C BC #### [facility] [address] [address] [address] Ashlie Hills VLDL CALC 36.6 mg/dL Normal [facility] Comment on above: Performed By: #### C BC #### [facility] [address] [address] [address] Ashlie Hills MG MAMM SCREEN 3D ALEX CADon 11-22-2022 MG MAMM SCREEN 3D ALEX CAD Patient: MITZI MACIAS Exam Date: 11/22/2022 : 1970 Gender:F Ordering : SAYDA BLAS [employer] Admission #: [id number] Family : Order #: [id number] CLICK HERE TO VIEW EXAM RADIOLOGY REPORT [...] BC #### [facility] [address] [place] [address] Dr. Ashlie Hills Albumin/Globulin [Mass ratio] 0.6 {ratio} Normal [facility] Comment on above: Performed By: #### C BC #### [facility] [address] [place] [address] Dr. Ashlie Hills ALP [Catalytic activity/Vol] 68 U/L Normal 46-116 [facility] Comment on above: Performed By: #### C BC #### [facility] [address] [place] [address] Dr. Ashlie Hills ALT [Catalytic activity/Vol] 14 U/L Normal 14-59 [facility] Comment on above: Performed By: #### C BC #### [facility] [address] [place] [address] Dr. Ashlie Hills Anion gap [Moles/Vol] 12.1 mmol/L Normal [facility] Comment on above: Performed By: #### C BC #### [facility] [address] [place] [address] Dr. Ashlie Hills AST [Catalytic activity/Vol] 9 U/L Critically low 15-37 [facility] Comment on above: Performed By: #### C BC #### [facility] [address] [place] [address] Dr. Ashlie Hills Bilirubin [Mass/Vol] 0.4 mg/dL Normal 0.2-1.0 [facility] Comment on above: Performed By: #### C BC #### [facility] [address] [place] [address] Dr. Ashlie Hills Calcium [Mass/Vol] 9.0 mg/dL Normal 8.5-10.1 [facility] Comment on above: Performed By: #### C BC #### [facility] [address] [address] [address] Ashlie Hills Chloride [Moles/Vol] 105 mmol/L Normal 98-107 [facility] Comment on above: Performed By: #### C BC #### [facility] [address] [place] [address] Dr. Ashlie Hills CO2 [Moles/Vol] 30.7 mmol/L Normal 21.0-32.0 [facility] Comment on above: Performed By: #### C BC #### [facility] [address] [place] [address] Dr. Ashlie Hills Creatinine [Mass/Vol] 0.77 mg/dL Normal 0.55-1.02 [facility] Comment on above: Performed By: #### C BC #### [facility] [address] [place] [address] Dr. Ashlie Hills EGFR-AF GUYANESE >60 Normal >=60 [facility] Comment on above: Performed By: #### C BC #### [facility] [address] [place] [address] Dr. Ashlie Hills EGFR-NON AF GUYANESE >60 Normal >=60 [facility] Comment on above: Performed By: #### C BC #### [facility] [address] [place] [address] Dr. Ashlie Hills Globulin (S) [Mass/Vol] 4.8 g/dL Normal [facility] Comment on above: Performed By: #### C BC #### [facility] [address] [place] [address] Dr. Ashlie Hills Glucose [Mass/Vol] 162 mg/dL Critically high 74-106 [facility] Comment on above: Performed By: #### C BC #### [facility] [address] [address] [address] Ashlie Hills Potassium [Moles/Vol] 3.8 mmol/L Normal 3.5-5.1 [facility] Comment on above: Performed By: #### C BC #### [facility] [address] [address] [address] Ashlie Hills Protein [Mass/Vol] 7.8 g/dL Normal 6.4-8.2 [facility] Comment on above: Performed By: #### C BC #### [facility] [address] [place] [address] Dr. Ashlie Hills Sodium [Moles/Vol] 144 mmol/L Normal 136-145 [facility] Comment on above: Performed By: #### C BC #### [facility] [address] [place] [address] Dr. Ashlie Hills Urea nitrogen [Mass/Vol] 24.0 mg/dL Critically high 7.0-18.0 [facility] Comment on above: Performed By: #### C BC #### [facility] [address] [place] [address] Dr. Ashlie Hills Urea nitrogen/Creatinine [Mass ratio] 31.2 mg/mg Normal [facility] Comment on above: Performed By: #### C BC #### [facility] [address] [place] [address] Dr. Ashlie Hills CBC AUTO DIFFon 10-05-2022 BASO # 0.1 103/ul Normal 0.0-0.1 [facility] Comment on above: Performed By: #### C BC #### [facility] [address] [place] [address] Dr. Ashlie Hills Basophils/100 WBC (Bld) 0.6 % Normal 0.2-2.0 [facility] Comment on above: Performed By: #### C BC #### [facility] [address] [place] [address] Dr. Ashlie Hills EO # 0.3 103/ul Normal 0.0-0.7 [facility] Comment on above: Performed By: #### C BC #### [facility] [address] [address] [address] Ashlie Hills Eosinophils/100 WBC (Bld) 2.1 % Normal 0.9-7.0 [facility] Comment on above: Performed By: #### C BC #### [facility] [address] [place] [address] Dr. Ashlie Hills Erythrocyte distribution width (RBC) [Ratio] 15.9 % Critically high 11.0-15.0 [facility] Comment on above: Performed By: #### C BC #### [facility] [address] [place] [address] Dr. Ashlie Hills Hematocrit (Bld) [Volume fraction] 51.8 % Critically high 36.0-48.0 [facility] Comment on above: Performed By: #### C BC #### [facility] [address] [place] [address] Dr. Ashlie Hills Hemoglobin (Bld) [Mass/Vol] 16.6 g/dL Critically high 12.0-16.0 [facility] Comment on above: Performed By: #### C BC #### [facility] [address] [place] [address] Dr. Ashlie Hills IG # 0.03 10e3/ul Normal 0.00-0.03 [facility] Comment on above: Performed By: #### C BC #### [facility] [address] [place] [address] Dr. Ashlie Hills IG % 0.2 % Normal 0.0-0.5 [facility] Comment on above: Performed By: #### C BC #### [facility] [address] [place] [address] Dr. Ashlie Hills LYMPH # 3.9 103/ul Critically high 1.2-3.8 [facility] Comment on above: Performed By: #### C BC #### [facility] [address] [place] [address] Dr. Ashlie Hills Lymphocytes/100 WBC (Bld) 31.7 % Normal 20.5-60.0 [facility] Comment on above: Performed By: #### C BC #### [facility] [address] [place] [address] Dr. Ashlie Hills MANUAL DIFF REQ NO Normal [facility] Comment on above: Performed By: #### C BC #### [facility] [address] [place] [address] Dr. Ashlie Hills MCH (RBC) [Entitic mass] 27.9 pg Normal 26.7-34.0 [facility] Comment on above: Performed By: #### C BC #### [facility] [address] [place] [address] Dr. Ashlie Hills MCHC (RBC) [Mass/Vol] 32.0 g/dL Normal 29.9-35.2 [facility] Comment on above: Performed By: #### C BC #### [facility] [address] [place] [address] Dr. Ashlie Hills MCV (RBC) [Entitic vol] 87.1 fL Normal 81.0-99.0 [facility] Comment on above: Performed By: #### C BC #### [facility] [address] [place] [address] Dr. Ashlie Hills MONO # 0.7 103/ul Normal 0.3-0.8 [facility] Comment on above: Performed By: #### C BC #### [facility] [address] [place] [address] Dr. Ashlie Hills Monocytes/100 WBC (Bld) 5.8 % Normal 1.7-12.0 [facility] Comment on above: Performed By: #### C BC #### [facility] [address] [place] [address] Dr. Ashlie Hills NEUT # 7.3 103/ul Critically high 1.4-6.5 [facility] Comment on above: Performed By: #### C BC #### [facility] [address] [place] [address] Dr. Ashlie Hills Neutrophils/100 WBC (Bld) 59.6 % Normal 43.0-75.0 [facility] Comment on above: Performed By: #### C BC #### [facility] [address] [place], [place] [address] Dr. Ashlie Hills Platelet mean volume (Bld) [Entitic vol] 11.7 fL Normal 9.5-13.5 [facility] Comment on above: Performed By: #### C BC #### [facility] [address] [address] [address] Ashlie Hills PLT 117 103/ul Critically low 150-450 [facility] Comment on above: Performed By: #### C BC #### [facility] [address] [place], [place] [address] Dr. Ashlie Hills RBC 5.95 106/ul Critically high 4.20-5.40 [facility] Comment on above: Performed By: #### C BC #### [facility] [address] [address] [address] Ashlie Hills WBC 12.3 103/ul Critically high 4.0-11.0 [facility] Comment on above: Performed By: #### C BC #### [facility] [address] [address] [address] ABD/PELV W CONon [...] #### [facility] [address] [address] [address] Ashlie Hills Clarity (U) CLEAR Normal CLEAR [facility] Comment on above: Performed By: #### P OCGLUC #### [facility] [address] [place] [address] Dr. Ashlie Hills Color (U) YELLOW Normal YELLOW [facility] Comment on above: Performed By: #### P OCGLUC #### [facility] [address] [place] [address] Dr. Ashlie HOBBS A micrscopic examination will be performed if indicated. Normal [facility] Comment on above: Performed By: #### P OCGLUC #### [facility] [address] [address] [address] Ashlie Hills Glucose Ql (U) Negative Normal NEGATIVE [facility] Comment on above: Performed By: #### P OCGLUC #### [facility] [address] [place] [address] Dr. Ashlie Hills Hemoglobin Ql (U) Negative Normal NEGATIVE [facility] Comment on above: Performed By: #### P OCGLUC #### [facility] [address] [place] [address] Dr. Ashlie Hills Ketones Ql (U) Negative Normal NEGATIVE [facility] Comment on above: Performed By: #### P OCGLUC #### [facility] [address] [address] [address] Ashlie Hills LEUKOCYTES Negative Normal NEGATIVE [facility] Comment on above: Performed By: #### P OCGLUC #### [facility] [address] [place] [address] Dr. Ashlie Hills Nitrite Ql (U) Negative Normal NEGATIVE [facility] Comment on above: Performed By: #### P OCGLUC #### [facility] [address] [address] [address] Ashlie Hills pH (U) 6.0 [pH] Normal 5-9 [facility] Comment on above: Performed By: #### P OCGLUC #### [facility] [address] [address] [address] Ashlie Hills Protein (U) [Mass/Vol] 100 mg/dL Abnormal NEGATIVE/ TRACE [facility] Comment on above: Performed By: #### P OCGLUC #### [facility] [address] [address] [address] Ashlie Hills SPEC GRAVITY 1.010 Normal 1.005-<=1.025 [facility] Comment on above: Performed By: #### P OCGLUC #### [facility] [address] [place] [address] Dr. Ashlie Hills UR MICRO IND INDICATED Normal [facility] Comment on above: Performed By: #### P OCGLUC #### [facility] [address] [address] [address] Ashlie Hills Urobilinogen Qn (U) 1.0 {Little'U}/dL Normal 0.2 - 1. 0 [facility] Comment on above: Performed By: #### P OCGLUC #### [facility] [address] [address] [address] Ashlie Hills LIPASEon 10-05-2022 Lipase [Catalytic activity/Vol] 1771.0 U/L Critically high 73.0-393.0 [facility] Comment on above: Performed By: #### C BC #### [facility] [address] [address] [address] Ashlie Hills PREG HCG QUALon 10-05-2022 , QUAL Negative Normal NEGATIVE [facility] Comment on above: Performed By: #### P OCGLUC #### [facility] [address] [place] [address] Dr. Ashlie Hills PROF 14(COMP METB)on 03-30-2 023 Albumin [Mass/Vol] 3.2 g/dL Critically low 3.4-5.0 [facility] Comment on above: Performed By: #### C BC #### [facility] [address] [place] [address] Dr. Ashlie Hills Albumin/Globulin [Mass ratio] 0.7 {ratio} Normal [facility] Comment on above: Performed By: #### C BC #### [facility] [address] [address] [address] Ashlie Hills ALP [Catalytic activity/Vol] 70 U/L Normal 46-116 [facility] Comment on above: Performed By: #### C BC #### [facility] [address] [place] [address] Dr. Ashlie Hills ALT [Catalytic activity/Vol] 11 U/L Critically low 14-59 [facility] Comment on above: Performed By: #### C BC #### [facility] [address] [place] [address] Dr. Ashlie Hills Anion gap [Moles/Vol] 10.3 mmol/L Normal [facility] Comment on above: Performed By: #### C BC #### [facility] [address] [place] [address] Dr. Ashlie Hills AST [Catalytic activity/Vol] 11 U/L Critically low 15-37 [facility] Comment on above: Performed By: #### C BC #### [facility] [address] [place] [address] Dr. Ashlie Hills Bilirubin [Mass/Vol] 0.9 mg/dL Normal 0.2-1.0 [facility] Comment on above: Performed By: #### C BC #### [facility] [address] [place] [address] Dr. Ashlie Hills Calcium [Mass/Vol] 9.3 mg/dL Normal 8.5-10.1 [facility] Comment on above: Performed By: #### C BC #### [facility] [address] [place] [address] Dr. Ashlie Hills Chloride [Moles/Vol] 105 mmol/L Normal 98-107 [facility] Comment on above: Performed By: #### C BC #### [facility] [address] [address] [address] Ashlie Hills CO2 [Moles/Vol] 30.6 mmol/L Normal 21.0-32.0 [facility] Comment on above: Performed By: #### C BC #### [facility] [address] [address] [address] Ashlie Hills Creatinine [Mass/Vol] 0.62 mg/dL Normal 0.55-1.02 [facility] Comment on above: Performed By: #### C BC #### [facility] [facility] [address] [address] [address] Ashlie Hills EGFR-AF GUYANESE >60 Normal >=60 [facility] Comment on above: Performed By: #### C BC #### [facility] [address] [place] [address] Dr. Ashlie Hills EGFR-NON AF GUYANESE >60 Normal >=60 [facility] Comment on above: Performed By: #### C BC #### [facility] [address] [place] [address] Dr. Ashlie Hills Globulin (S) [Mass/Vol] 4.6 g/dL Normal [facility] Comment on above: Performed By: #### C BC #### [facility] [address] [place] [address] Dr. Ashlie Hills Glucose [Mass/Vol] 85 mg/dL Normal 74-106 [facility] Comment on above: Performed By: #### C BC #### [facility] [address] [place] [address] Dr. Ashlie Hills Potassium [Moles/Vol] 3.9 mmol/L Normal 3.5-5.1 [facility] Comment on above: Performed By: #### C BC #### [facility] [address] [place] [address] Dr. Ashlie Hills Protein [Mass/Vol] 7.8 g/dL Normal 6.4-8.2 [facility] Comment on above: Performed By: #### C BC #### [facility] [address] [address] [address] Ashlie Hills Sodium [Moles/Vol] 142 mmol/L Normal 136-145 [facility] Comment on above: Performed By: #### C BC #### [facility] [address] [place] [address] Dr. Ashlie Hills Urea nitrogen [Mass/Vol] 12.0 mg/dL Normal 7.0-18.0 [facility] Comment on above: Performed By: #### C BC #### [facility] [address] [place] [address] Dr. Ashlie Hills Urea nitrogen/Creatinine [Mass ratio] 19.4 mg/mg Normal [facility] Comment on above: Performed By: #### C BC #### [facility] [address] [place] [address] Dr. Ashlie Hills URINE MICROSCOPIC ONLYon BACTERIA TRACE Abnormal NONE SEEN [facility] Comment on above: Performed By: #### P OCGLUC #### [facility] [address] [place] [address] Dr. Ashlie Hills Bacteria identified Cx Nom (U) NOT INDICATED Normal [facility] Comment on above: Performed By: #### P OCGLUC #### [facility] [address] [place] [address] Dr. Ashlie Hills CAST NONE SEEN Normal NONE SEEN [facility] Comment on above: Performed By: #### P OCGLUC #### [facility] [address] [place] [address] Dr. Ashlie Hills Crystals LM Nom (Urine sed) NONE SEEN Normal NONE SEEN [facility] Comment on above: Performed By: #### P OCGLUC #### [facility] [address] [place] [address] Dr. Ashlie Hills Epithelial cells LM Ql (Urine sed) MODERATE Abnormal NONE SEEN /RARE [facility] Comment on above: Performed By: #### P OCGLUC #### [facility] [address] [place] [address] Dr. Ashlie Hills MUCOUS NONE SEEN Normal NONE SEEN [facility] Comment on above: Performed By: #### P OCGLUC #### [facility] [address] [place] [address] Dr. Ashlie Hills RBC 0-2 Normal 0-2 [facility] Comment on above: Performed By: #### P OCGLUC #### [facility] [address] [place] [address] Dr. Ashlie Hills WBC 0-2 Abnormal NONE SEEN [facility] Comment on above: Performed By: #### P OCGLUC #### [facility] [address] [place] [address] Dr. Ashlie Hills [facility]06 SARS-CoV-2 (COVID-19) RNA MADDY+probe [...] for this test is supported by the [place] [employer] of Health and Human Service's declaration that [...] VDAGS #### [facility] [address] [place] [address] Dr. Ashlie Hills INFLUENZA A AND B [...] NFLUAB #### [facility] [address] [place] [address] Dr. Ashlie Hills INFLUBNEGH SEE BELOW Normal [facility] Comment on above: Result Comment: Nega tive for Flu B protein antigen. Infection due to Flu B cannot be ruled out. Flu B antigen in the sample may be below the detection limit of the test. Performed By: #### I NFLUAB #### [facility] [address] [place] [id number] Ashlie Hills INFLUENZA A AG Negative Normal NEGATIVE SEE COMMENT [facility] Comment on above: Performed By: #### I NFLUAB #### [facility] [address] [place], [place] [address] Dr. Ashlie Hills INFLUENZA B AG Negative Normal NEGATIVE SEE COMMENT [facility] Comment on above: Performed By: #### I NFLUAB #### [facility] [address] [place], [place] [address] ABD/PELV W CONon [...] to at least 10/21/2018, unchanged. https://www.ncbi.nlm .nih.gov/pmc/article s/[email or web address]/ Electronically authenticated by: COLLIN HUERTAS Date: 2022-07-27 14:56 Normal [facility] CREATININEon 07-18-2022 Creatinine [Mass/Vol] 0.81 mg/dL Normal 0.55-1.02 [facility] Comment on above: Performed By: #### C BC #### [facility] [address] [address] [address] Ashlie Hills EGFR-AF GUYANESE >60 Normal >=60 [facility] Comment on above: Performed By: #### C BC #### [facility] [address] [place], [place] [address] Dr. Ashlie Hills EGFR-NON AF GUYANESE >60 Normal >=60 [facility] Comment on above: Performed By: #### C BC #### [facility] [address] [place], [place] [address] LOW EXT W [...] by: PATRICIA IVAN Date: 2022-07-18 14:58 Normal [facility] XR KNEE LT 1_2 Von 3 XR [...] [facility] Covid-19 PCR ([facility]VD[facility])on 06-09 SARS-CoV-2 (COVID-19) RNA MADDY+probe Ql (Unsp [...] for this test is supported by the [place] of Health and Human Service's (HHS's) declaration [...] BC #### [facility] [address] [place] [address] Dr. Ashlie Hills INFLUENZA A AND B AGon 07-06 [facility] SEE BELOW Normal [facility] Comment on above: Result Comment: Nega tive for Flu A protein angiten. Infection due to Flu A cannot be ruled out. Flu A angiten in the sample may be below the detection limit of the test. Performed By: #### C BC #### [facility] [address] [address] [address] Ashlie [place] [facility] Normal [facility] Comment on above: Result Comment: Nega tive for Flu B protein antigen. Infection due to Flu B cannot be ruled out. Flu B antigen in the sample may be below the detection limit of the test. Performed By: #### C BC #### [facility] [address] [address] [address] Ashlie Hills INFLUENZA A AG Negative Normal NEGATIVE SEE COMMENT [facility] Comment on above: Performed By: #### C BC #### [facility] [address] [address] [address] Ashlie Hills INFLUENZA B AG Negative Normal NEGATIVE SEE COMMENT [facility] Comment on above: Performed By: #### C BC #### [facility] [address] [place] [address] Dr. Ashlie Hills POINT OF CARE GLUCOSEon 10 Glucose [Mass/Vol] 108 mg/dL Critically high 74-106 [facility] Comment on above: Performed By: #### C BC #### [facility] [address] [address] [address] Ashlie Hills RAGHU by IFAon 03-07-2022 Antinuclear Antibodies, IFA Negative Normal [facility] Comment on above: Result Comment: Nega tive <1:80 Borderline 1:80 Positive >1:80 ICAP nomenclature: AC-0 For more information about Hep-2 cell patterns use ANApatterns.org, the official website for the International Consensus on Antinuclear Antibody (RAGHU) Patterns (ICAP). Performed By: #### A NAIFA #### [facility] [address] [place] [address] Dr. Ashlie Hills IMMUNOFIXATION (TREVON), URINEo n 03-07-2022 TREVON Interpretation:U Comment Normal [facility] Comment on above: Result Comment: No m onoclonality detected. Performed By: #### C BC #### [facility] [address] [place] [address] Dr. Ashlie Hills IMMUNOFIXATION(TREVON),PROTEIN ELEC(PE),FREon 03-07-2022 Albumin [Mass/Vol] 3.0 g/dL Normal 2.9-4.4 [facility] Comment on above: Performed By: #### I NFLUAB #### [facility] [address] [place] [address] Dr. Ashlie Hills Albumin/Globulin [Mass ratio] 0.8 {ratio} Normal 0.7-1.7 [facility] Comment on above: Performed By: #### I NFLUAB #### [facility] [address] [address] [address] Ashlie Hills Lriub-8-Hkuhnkjb 0.3 g/dL Normal 0.0-0.4 [facility] Comment on above: Performed By: #### I NFLUAB #### [facility] [address] [address] [address] Ashlie Hills Bwjnp-9-Iohkchsb 1.0 g/dL Normal 0.4-1.0 [facility] Comment on above: Performed By: #### I NFLUAB #### [facility] [address] [address] [address] Ashlie Hills Beta Globulin 1.8 g/dL Critically high 0.7-1.3 [facility] Comment on above: Performed By: #### I NFLUAB #### [facility] [address] [place] [address] Dr. Ashlie Hills [employer] Chains,S 45.2 mg/L Critically high 3.3-19.4 [facility] Comment on above: Performed By: #### I NFLUAB #### [facility] [address] [address] [address] Ashlie Hills Free [employer] Lt Chains,S 40.3 mg/L Critically high 5.7-26.3 [facility] Comment on above: Performed By: #### I NFLUAB #### [facility] [address] [place] [address] Dr. Ashlie Hills Gamma Globulin 0.8 g/dL Normal 0.4-1.8 [facility] Comment on above: Performed By: #### I NFLUAB #### [facility] [address] [address] [address] Ashlie Hills Globulin (S) [Mass/Vol] 3.9 g/dL Normal 2.2-3.9 [facility] Comment on above: Performed By: #### I NFLUAB #### [facility] [address] [place] [address] Dr. Ashlie Hills Immunofixation Result, Serum Comment Normal [facility] Comment on above: Result Comment: No m onoclonality detected. Performed By: #### I NFLUAB #### [facility] [address] [address] [address] Ashlie Hills Immunoglobulin A, Qn, Serum 776 mg/dL Critically high 87-352 [facility] Comment on above: Performed By: #### I NFLUAB #### [facility] [address] [address] [address] Ashlie Hills Immunoglobulin G, Qn, Serum 955 mg/dL Normal 586-1602 [facility] Comment on above: Performed By: #### I NFLUAB #### [facility] [address] [address] [address] Ashlie Hills Immunoglobulin M, Qn, Serum 39 mg/dL Normal 26-217 [facility] Comment on above: Performed By: #### I NFLUAB #### [facility] [address] [address] [address] Ashlie Hills [employer]/Lambda Ratio, S 1.12 Normal 0.26-1.65 [facility] Comment on above: Performed By: #### I NFLUAB #### [facility] [address] [address] [address] Ashlie Hills M-Bright Not Observed Normal Not Observed [facility] Comment on above: Performed By: #### I NFLUAB #### [facility] [address] [address] [address] Ashlie Hills PDF . Normal [facility] Comment on above: Performed By: #### I NFLUAB #### [facility] [address] [address] [address] Ashlie Hills Please note: Comment Normal [facility] Comment on above: Result Comment: Prot ein electrophoresis scan will follow via computer, mail, or seed corn manager production delivery. Performed By: #### I NFLUAB #### [facility] [address] [address] [address] Ashlie Hills Protein [Mass/Vol] 6.9 g/dL Normal 6.0-8.5 [facility] Comment on above: Performed By: #### I NFLUAB #### [facility] [address] [address] [address] Ashlie Hills C-PEPTIDE, SERUMon 2 C-Peptide, Serum 3.1 ng/mL Normal 1.1-4.4 [facility] Comment on above: Result Comment: C-Pe ptide reference interval is for fasting patients. Performed By: #### C PEPT #### [facility] [address] [address] [address] Ashlie Hills HEP B SURFACE ANTIGEN SCREEN on 03-04-2022 HBsAg Screen Negative Normal Negative [facility] Comment on above: Performed By: #### C BC #### [facility] [address] [place] [address] Dr. Ashlie Hills HEPATITIS C VIRUS AB W/ REFL EX QUANTon 03-04-2022 HCV AB <0.1 Normal 0.0-0.9 [facility] Comment on above: Performed By: #### I NFLUAB #### [facility] [address] [place] [address] Dr. Ashlie Hills Interpretation: Comment Normal [facility] Comment on above: Result Comment: Nega tive Not infected with HCV, unless recent infection is suspected or other evidence exists to indicate HCV infection. Performed By: #### I NFLUAB #### [facility] [address] [place] [address] Dr. Ashlie Hills MICROALBUMIN/ CREATININE RAT IOon 03-04-2022 Albumin, Urine 367.4 ug/mL Normal Not Estab. [facility] Comment on above: Performed By: #### C BC #### [facility] [address] [place] [address] Dr. Ashlie Hills Albumin/ Creatinine Ratio 239 mg/g creat Critically high 0-29 [facility] Comment on above: Result Comment: Norm al: 0 - 29 Moderately increased: 30 - 300 Severely increased: >300 Performed By: #### C BC #### [facility] [address] [place] [address] Dr. Ashlie Hills Creatinine, Urine 153.9 mg/dL Normal Not Estab. [facility] Comment on above: Performed By: #### C BC #### [facility] [address] [address] [address] Ashlie Hills VIT D 25-OH LABCORPon 2021 Vitamin D, 25-Hydroxy <4.0 Critically low 30.0-100.0 [facility] Comment on above: Result Comment: Graciela min D deficiency has been defined by the [place] of Medicine and an Endocrine Society practice guideline as a level of serum 25-OH vitamin D less than 20 ng/mL (1,2). The Endocrine Society went on to further define vitamin D insufficiency as a level between 21 and 29 ng/mL (2). 1. IOM ([place] of Medicine). 2010. Dietary reference intakes for calcium and D. [place]: The National Academies Press. 2. Lynda STAHL, Keely OLIVEROS, Leandra LOPEZ, et al. Evaluation, treatment, and prevention of vitamin D deficiency: an Endocrine Society clinical practice guideline. JCEM. 2010; 96(7):1911-30. Performed By: #### C BC #### [facility] [address] [address] [address] Ashlie Hills GLYCOHEMOGLOBIN A1Con 2021 ADA RECOMMENDATION SEE BELOW Normal [facility] Comment on above: Result Comment: ADA RECOMMENDED LIMIT 4.0 - 6.0 ADA THERAPEUTIC TARGET < 7.0 ACTION SUGGESTED > 7.0 Performed By: #### C VDAGS #### [facility] [address] [address] [address] Ashlie Hills Glucose [Mass/Vol] 295 mg/dL Normal [facility] Comment on above: Performed By: #### C VDAGS #### [facility] [address] [address] [address] Ashlie Hills HbA1c (Bld) [Mass fraction] 11.9 % Critically high 4.5-6.2 [facility] Comment on above: Performed By: #### C VDAGS #### [facility] [address] [address] [address] Ashlie Hills HEMOGRAM AND PLATELon 2021 Hematocrit (Bld) [Volume fraction] 56.3 % Critically high 36.0-48.0 [facility] Comment on above: Performed By: #### C VDAGS #### [facility] [address] [place] [address] Dr. Ashlie Hills Hemoglobin (Bld) [Mass/Vol] 18.0 g/dL Critically high 12.0-16.0 [facility] Comment on above: Performed By: #### C VDAGS #### [facility] [address] [place] [address] Dr. Ashlie Hills MCH (RBC) [Entitic mass] 29.5 pg Normal 26.7-34.0 [facility] Comment on above: Performed By: #### C VDAGS #### [facility] [address] [place] [address] Dr. Ashlie Hills MCHC (RBC) [Mass/Vol] 32.0 g/dL Normal 29.9-35.2 [facility] Comment on above: Performed By: #### C VDAGS #### [facility] [address] [place] [address] Dr. Ashlie Hills MCV (RBC) [Entitic vol] 92.1 fL Normal 81.0-99.0 [facility] Comment on above: Performed By: #### C VDAGS #### [facility] [address] [place] [address] Dr. Ashlie Hills PLT 123 103/ul Critically low 150-450 [facility] Comment on above: Performed By: #### C VDAGS #### [facility] [address] [place] [address] Dr. Ashlie Hills RBC 6.11 106/ul Critically high 4.20-5.40 [facility] Comment on above: Performed By: #### C VDAGS #### [facility] [address] [place] [address] Dr. Ashlie Hills WBC 16.4 103/ul Critically high 4.0-11.0 [facility] Comment on above: Performed By: #### C VDAGS #### [facility] [address] [place] [address] Dr. Ashlie Hills LIPID PROFILEon 03-03-2022 CHOL-HDL RATIO NORM SEE BELOW Normal [facility] Comment on above: Result Comment: 3.3 - 4.4 LOW RISK 4.4 - 7.1 AVERAGE RISK 7.1 - 11.0 MODERATE RISK >11.0 HIGH RISK Performed By: #### C VDAGS #### [facility] [address] [place], [place] [address] Dr. Ashlie Hills Cholesterol [Mass/Vol] 159 mg/dL Normal <=200 [facility] Comment on above: Performed By: #### C VDAGS #### [facility] [address] [id number] [address] Ashlie Hills Cholesterol in HDL [Mass/Vol] 40 mg/dL Normal 40-60 [facility] Comment on above: Performed By: #### C VDAGS #### [facility] [address] [address] [address] Ashlie Hills Cholesterol in LDL [Mass/Vol] 81.8 mg/dL Normal [facility] Comment on above: Performed By: #### C VDAGS #### [facility] [address] [address] [address] Ashlie Hills Cholesterol.total/Ch olesterol in HDL [Mass ratio] 4.0 {ratio} Normal [facility] Comment on above: Performed By: #### C VDAGS #### [facility] [address] [id number] [address] Ashlie Hills HDL NORMAL > or = 60 mg/dl - LOW CARDIOVASCULAR RISK <40 mg/dl - HIGH CARDIOVASCULAR RISK Normal [facility] Comment on above: Performed By: #### C VDAGS #### [facility] [address] [place], [place] [address] Dr. Ashlie Hills LDL CALC NORMAL SEE BELOW Normal [facility] Comment on above: Result Comment: <100 mg/dl OPTIMAL 100 - 129 mg/dl NEAR OR ABOVE OPTIMAL 130 - 159 mg/dl BORDERLINE HIGH 160 - 189 mg/dl HIGH >190 mg/dl VERY HIGH Performed By: #### C VDAGS #### [facility] [address] [address] [address] Ashlie Hills Triglyceride [Mass/Vol] 186 mg/dL Critically high <=150 [facility] Comment on above: Performed By: #### C VDAGS #### [facility] [address] [place] [address] Dr. Ashlie Hills VLDL CALC 37.2 mg/dL Normal [facility] Comment on above: Performed By: #### C VDAGS #### [facility] [address] [place] [address] Dr. Ashlie Hills RENAL FUNCTION PANELon 03-03 Albumin [Mass/Vol] 3.1 g/dL Critically low 3.4-5.[address] [facility] Comment on above: Performed By: #### C BC #### [facility] [address] [place] [address] Dr. Ashlie Hills Calcium [Mass/Vol] 9.2 mg/dL Normal 8.5-10.1 [facility] Comment on above: Performed By: #### C BC #### [facility] [address] [place] [address] Dr. Ashlie Hills Chloride [Moles/Vol] 102 mmol/L Normal 98-107 [facility] Comment on above: Performed By: #### C BC #### [facility] [address] [place] [address] Dr. Ashlie Hills CO2 [Moles/Vol] 31.9 mmol/L Normal 21.0-32.0 [facility] Comment on above: Performed By: #### C BC #### [facility] [address] [place] [address] Dr. Ashlie Hills Creatinine [Mass/Vol] 0.68 mg/dL Normal 0.55-1.02 [facility] Comment on above: Performed By: #### C BC #### [facility] [address] [place] [address] Dr. Ashlie Hills EGFR-AF GUYANESE >60 Normal >=60 [facility] Comment on above: Performed By: #### C BC #### [facility] [address] [place] [address] Dr. Ashlie Hills EGFR-NON AF GUYANESE >60 Normal >=60 [facility] Comment on above: Performed By: #### C BC #### [facility] [address] [place] [address] Dr. Ashlie Hills Glucose [Mass/Vol] 131 mg/dL Critically high 74-106 [facility] Comment on above: Performed By: #### C BC #### [facility] [address] [place] [address] Dr. Ashlie Hills Phosphate [Mass/Vol] 4.0 mg/dL Normal 2.6-4.7 [facility] Comment on above: Performed By: #### C BC #### [facility] [address] [place] [address] Dr. Ashlie Hills Potassium [Moles/Vol] 4.0 mmol/L Normal 3.5-5.1 [facility] Comment on above: Performed By: #### C BC #### [facility] [address] [place] [address] Dr. Ashlie Hills Sodium [Moles/Vol] 141 mmol/L Normal 136-145 [facility] Comment on above: Performed By: #### C BC #### [facility] [address] [place] [address] Dr. Ashlie Hills Urea nitrogen [Mass/Vol] 17.0 mg/dL Normal 7.0-18.0 [facility] Comment on above: Performed By: #### C BC #### [facility] [address] [place] [address] Dr. Ashlie Hills UA RANDOM W/MICROSCOPICon BACTERIA NONE SEEN Normal NONE SEEN [facility] Comment on above: Performed By: #### I NFLUAB #### [facility] [address] [place] [address] Dr. Ashlie Hills Bilirubin Ql (U) Negative Normal NEGATIVE [facility] Comment on above: Performed By: #### I NFLUAB #### [facility] [address] [place] [address] Dr. Ashlie Hills CAST NONE SEEN Normal NONE SEEN [facility] Comment on above: Performed By: #### I NFLUAB #### [facility] [address] [place] [address] Dr. Ashlie Hills Clarity (U) CLEAR Normal CLEAR [facility] Comment on above: Performed By: #### I NFLUAB #### [facility] [address] [address] [address] Ashlie Hills Color (U) YELLOW Normal YELLOW [facility] Comment on above: Performed By: #### I NFLUAB #### [facility] [address] [place] [place] [address] Dr. Ashlie Hills Crystals LM Nom (Urine sed) NONE SEEN Normal NONE SEEN [facility] Comment on above: Performed By: #### I NFLUAB #### [facility] [address] [place] [address] Dr. Ashlie Hills Epithelial cells LM Ql (Urine sed) FEW Abnormal NONE SEEN /RARE [facility] Comment on above: Performed By: #### I NFLUAB #### [facility] [address] [place] [address] Dr. Ashlie Hills Glucose Ql (U) Negative Normal NEGATIVE [facility] Comment on above: Performed By: #### I NFLUAB #### [facility] [address] [place] [address] Dr. Ashlie Hills Hemoglobin Ql (U) Negative Normal NEGATIVE [facility] Comment on above: Performed By: #### I NFLUAB #### [facility] [address] [place] [address] Dr. Ashlie Hills Ketones Ql (U) Negative Normal NEGATIVE [facility] Comment on above: Performed By: #### I NFLUAB #### [facility] [address] [place] [address] Dr. Ashlie Hills LEUKOCYTES Negative Normal NEGATIVE [facility] Comment on above: Performed By: #### I NFLUAB #### [facility] [address] [place] [address] Dr. Ashlie Hills MUCOUS NONE SEEN Normal NONE SEEN [facility] Comment on above: Performed By: #### I NFLUAB #### [facility] [address] [place] [address] Dr. Ashlie Hills Nitrite Ql (U) Negative Normal NEGATIVE [facility] Comment on above: Performed By: #### I NFLUAB #### [facility] [address] [place] [address] Dr. Ashlie Hills pH (U) 5.5 [pH] Normal 5-9 [facility] Comment on above: Performed By: #### I NFLUAB #### [facility] [address] [place] [address] Dr. Ashlie Hills RBC 0-2 Normal 0-2 [facility] Comment on above: Performed By: #### I NFLUAB #### [facility] [address] [place] [address] Dr. Ashlie Hills SPEC GRAVITY >=1.030 Abnormal 1.005-<=1.025 [facility] Comment on above: Performed By: #### I NFLUAB #### [facility] [address] [place] [address] Dr. Ashlie Hills UA PROTEIN 100 mg/dl Abnormal NEGATIVE/ TRACE [facility] Comment on above: Performed By: #### I NFLUAB #### [facility] [address] [place] [address] Dr. Ashlie Hills Urobilinogen Qn (U) 0.2 {Little'U}/dL Normal 0.2 - 1. 0 [facility] Comment on above: Performed By: #### I NFLUAB #### [facility] [address] [place] [address] Dr. Ashlie Hills WBC NONE SEEN Normal NONE SEEN [facility] Comment on above: Performed By: #### I NFLUAB #### [facility] [address] [place] [address] Dr. Ashlie Hills URIC ACID SERUMon 03-03-2022 Urate [Mass/Vol] 5.0 mg/dL Normal 2.6-6.0 [facility] Comment on above: Performed By: #### I NFLUAB #### [facility] [address] [place] [address] Dr. Ashlie Hills URINE T PROTEIN CREAT RATIOo n 03-03-2022 Protein (U) [Mass/Vol] 77.9 mg/dL Critically high <=12.0 [facility] Comment on above: Performed By: #### C VDAGS #### [facility] [address] [place] [address] Dr. Ashlie Hills UR PROT CREAT RAT 0.44 Normal [facility] Comment on above: Performed By: #### C VDAGS #### [facility] [address] [address] [address] Ashlie Hills URINE CREAT 175.15 mg/dL Normal 20.00-300.00 [facility] Comment on above: Performed By: #### C VDAGS #### [facility] [address] [place] [address] Dr. Ashlie Hills CULTURE URINEon 12-25-2021 CULTURE URINE Culture Observations: GREATER THAN TWO ORGANISMS PRESENT, HEAVILY MIXED. PLEASE RESUBMIT CLEAN CATCH MID-STREAM URINE IF CLINICALLY INDICATED. Normal [facility] Comment on above: Performed By: #### I NFLUAB #### [facility] [address] [place] [address] Dr. Ashlie Hills CBC AUTO DIFFon 12-24-2021 BASO # 0.1 103/ul Normal 0.0-0.1 [facility] Comment on above: Performed By: #### C BC #### [facility] [address] [place] [address] Dr. Ashlie Hills Basophils/100 WBC (Bld) 0.5 % Normal 0.2-2.0 [facility] Comment on above: Performed By: #### C BC #### [facility] [address] [place] [address] Dr. Ashlie Hills EO # 0.4 103/ul Normal 0.0-0.7 [facility] Comment on above: Performed By: #### C BC #### [facility] [address] [place] [address] Dr. Ashlie Hills Eosinophils/100 WBC (Bld) 2.4 % Normal 0.9-7.0 [facility] Comment on above: Performed By: #### C BC #### [facility] [address] [address] [address] Ashlie Hills Erythrocyte distribution width (RBC) [Ratio] 14.1 % Normal 11.0-15.0 [facility] Comment on above: Performed By: #### C BC #### [facility] [address] [place] [address] Dr. Ashlie Hills Hematocrit (Bld) [Volume fraction] 55.9 % Critically high 36.0-48.0 [facility] Comment on above: Performed By: #### C BC #### [facility] [address] [place] [address] Dr. Ashlie Hills Hemoglobin (Bld) [Mass/Vol] 17.9 g/dL Critically high 12.0-16.0 [facility] Comment on above: Performed By: #### C BC #### [facility] [address] [place] [address] Dr. Ashlie Hills IG # 0.06 10e3/ul Critically high 0.00-0.03 [facility] Comment on above: Performed By: #### C BC #### [facility] [address] [place] [address] Dr. Ashlie Hills IG % 0.4 % Normal 0.0-0.5 [facility] Comment on above: Performed By: #### C BC #### [facility] [address] [place] [address] Dr. Ashlie Hills LYMPH # 5.8 103/ul Critically high 1.2-3.8 [facility] Comment on above: Performed By: #### C BC #### [facility] [address] [place] [address] Dr. Ashlie Hills Lymphocytes/100 WBC (Bld) 35.4 % Normal 20.5-60.0 [facility] Comment on above: Performed By: #### C BC #### [facility] [address] [place] [address] Dr. Ashlie Hills MANUAL DIFF REQ NO Normal [facility] Comment on above: Performed By: #### C BC #### [facility] [address] [address] [address] Ashlie Hills MCH (RBC) [Entitic mass] 29.4 pg Normal 26.7-34.0 [facility] Comment on above: Performed By: #### C BC #### [facility] [address] [place] [address] Dr. Ashlie Hills MCHC (RBC) [Mass/Vol] 32.0 g/dL Normal 29.9-35.2 [facility] Comment on above: Performed By: #### C BC #### [facility] [address] [place] [address] Dr. Ashlie Hills MCV (RBC) [Entitic vol] 91.8 fL Normal 81.0-99.0 [facility] Comment on above: Performed By: #### C BC #### [facility] [address] [place] [address] Dr. Ashlie Hills MONO # 0.8 103/ul Normal 0.3-0.8 [facility] Comment on above: Performed By: #### C BC #### [facility] [address] [place] [address] Dr. Ashlie Hills Monocytes/100 WBC (Bld) 4.8 % Normal 1.7-12.0 [facility] Comment on above: Performed By: #### C BC #### [facility] [address] [place] [address] Dr. Ashlie Hills NEUT # 9.3 103/ul Critically high 1.4-6.5 [facility] Comment on above: Performed By: #### C BC #### [facility] [address] [place] [address] Dr. Ashlie Hills Neutrophils/100 WBC (Bld) 56.5 % Normal 43.0-75.0 [facility] Comment on above: Performed By: #### C BC #### [facility] [address] [place] [address] Dr. Ashlie Hills Platelet mean volume (Bld) [Entitic vol] 12.9 fL Normal 9.5-13.5 [facility] Comment on above: Performed By: #### C BC #### [facility] [address] [place], [place] [address] Dr. Ashlie Hills PLT 127 103/ul Critically low 150-450 [facility] Comment on above: Performed By: #### C BC #### [facility] [address] [place], [place] [address] Dr. Ashlie Hills RBC 6.09 106/ul Critically high 4.20-5.40 [facility] Comment on above: Performed By: #### C BC #### [facility] [address] [place], [place] [address] Dr. Ashlie Hills WBC 16.4 103/ul Critically high 4.0-11.0 [facility] Comment on above: Performed By: #### C BC #### [facility] [address] [place], [place] [address] ABD/PELVIS WO CONon [...] UMICRO #### [facility] [address] [place] [address] Dr. Ashlie Hills Clarity (U) CLEAR Normal CLEAR [facility] Comment on above: Performed By: #### Tracey LYMAN UMICRO #### [facility] [address] [address] [address] Ashlie Hills Color (U) DK. ORANGE Abnormal YELLOW [facility] Comment on above: Performed By: #### E NURA ICRO #### [facility] [address] [place] [address] Dr. Ashlie Hills ERUAHD A micrscopic examination will be performed if indicated. Normal [facility] Comment on above: Performed By: #### E NURA UMICRO #### [facility] [address] [place] [address] Dr. Ashlie Hills Glucose Ql (U) 250 mg/dl Abnormal NEGATIVE [facility] Comment on above: Performed By: #### MADELINE DIAZRO #### [facility] [address] [place] [address] Dr. Ashlie Hills Hemoglobin Ql (U) Negative Normal NEGATIVE [facility] Comment on above: Performed By: #### MADELINE DIAZRO #### [facility] [address] [place] [address] Dr. Ashlie Hills Ketones Ql (U) Negative Normal NEGATIVE [facility] Comment on above: Performed By: #### MADELINE DIAZRO #### [facility] [address] [place] [address] Dr. Ashlie Hills LEUKOCYTES Negative Normal NEGATIVE [facility] Comment on above: Performed By: #### MADELINE DIAZRO #### [facility] [address] [place] [address] Dr. Ashlie Hills Nitrite Ql (U) Negative Normal NEGATIVE [facility] Comment on above: Performed By: #### MADELINE DIAZRO #### [facility] [address] [place] [address] Dr. Ashlie Hills pH (U) 5.0 [pH] Normal 5-9 [facility] Comment on above: Performed By: #### MADELINE DIAZRO #### [facility] [address] [place] [address] Dr. Ashlie Hills Protein (U) [Mass/Vol] 100 mg/dL Abnormal NEGATIVE/ TRACE [facility] Comment on above: Performed By: #### MADELINE DIAZRO #### [facility] [address] [place] [address] Dr. Ashlie Hills SPEC GRAVITY >=1.030 Abnormal 1.005-<=1.025 [facility] Comment on above: Performed By: #### MADELINE DIAZRO #### [facility] [address] [place] [address] Dr. Ashlie Hills UR MICRO IND INDICATED Normal [facility] Comment on above: Performed By: #### EVONNE DIAZ #### [facility] [address] [place] [address] Dr. Ashlie Hills Urobilinogen Qn (U) 1.0 {Little'U}/dL Normal 0.2 - 1. 0 [facility] Comment on above: Performed By: #### EVONNE DIAZ #### [facility] [address] [place] [address] Dr. Ashlie Hills PROF CHEM 8 (BAS METB)on Anion gap [Moles/Vol] 12.1 mmol/L Normal [facility] Comment on above: Performed By: #### I NFLUAB #### [facility] [address] [place] [address] Dr. Ashlie Hills Calcium [Mass/Vol] 9.0 mg/dL Normal 8.5-10.1 [facility] Comment on above: Performed By: #### I NFLUAB #### [facility] [address] [place] [address] Dr. Ashlie Hills Chloride [Moles/Vol] 101 mmol/L Normal 98-107 [facility] Comment on above: Performed By: #### I NFLUAB #### [facility] [address] [place] [address] Dr. Ashlie Hills CO2 [Moles/Vol] 29.1 mmol/L Normal 21.0-32.0 [facility] Comment on above: Performed By: #### I NFLUAB #### [facility] [address] [place] [address] Dr. Ashlie Hills Creatinine [Mass/Vol] 0.86 mg/dL Normal 0.55-1.02 [facility] Comment on above: Performed By: #### I NFLUAB #### [facility] [address] [place] [address] Dr. Ashlie Hills EGFR-AF GUYANESE >60 Normal >=60 [facility] Comment on above: Performed By: #### I NFLUAB #### [facility] [address] [address] [address] Ashlie Hills EGFR-NON AF GUYANESE >60 Normal >=60 [facility] Comment on above: Performed By: #### I NFLUAB #### [facility] [address] [place] [address] Dr. Ashlie Hills Glucose [Mass/Vol] 236 mg/dL Critically high 74-106 [facility] Comment on above: Performed By: #### I NFLUAB #### [facility] [address] [place] [address] Dr. Ashlie Hills Potassium [Moles/Vol] 4.2 mmol/L Normal 3.5-5.1 [facility] Comment on above: Performed By: #### I NFLUAB #### [facility] [address] [place] [address] Dr. Ashlie Hills Sodium [Moles/Vol] 138 mmol/L Normal 136-145 [facility] Comment on above: Performed By: #### I NFLUAB #### [facility] [address] [place] [address] Dr. Ashlie Hills Urea nitrogen [Mass/Vol] 11.0 mg/dL Normal 7.0-18.0 [facility] Comment on above: Performed By: #### I NFLUAB #### [facility] [address] [place] [address] Dr. Ashlie Hills Urea nitrogen/Creatinine [Mass ratio] 12.8 mg/mg Normal [facility] Comment on above: Performed By: #### I NFLUAB #### [facility] [address] [place] [address] Dr. Ashlie Hills URINE MICROSCOPIC ONLYon BACTERIA SMALL Abnormal NONE SEEN [facility] Comment on above: Performed By: #### EVONNE DIAZ #### [facility] [address] [place] [address] Dr. Ashlie Hills Bacteria identified Cx Nom (U) INDICATED Normal [facility] Comment on above: Performed By: #### EVONNE DIAZ #### [facility] [address] [place] [address] Dr. Ashlie Hills CAST NONE SEEN Normal NONE SEEN [facility] Comment on above: Performed By: #### E RUR, UMICRO #### [facility] [address] [place] [address] Dr. Ashlie Hills Crystals LM Nom (Urine sed) NONE SEEN Normal NONE SEEN [facility] Comment on above: Performed By: #### E RUR, UMICRO #### [facility] [address] [place] [address] Dr. Ashlie Hills Epithelial cells LM Ql (Urine sed) MODERATE Abnormal NONE SEEN /RARE [facility] Comment on above: Performed By: #### E RUR, UMICRO #### [facility] [address] [place] [address] Dr. Ashlie Hills MUCOUS NONE SEEN Normal NONE SEEN [facility] Comment on above: Performed By: #### E RUR, UMICRO #### [facility] [address] [place] [address] Dr. Ashlie Hills RBC 0-2 Normal 0-2 [facility] Comment on above: Performed By: #### E RUR, UMICRO #### [facility] [address] [place] [address] Dr. Ashlie Hills WBC 0-2 Abnormal NONE SEEN [facility] Comment on above: Performed By: #### E RUR, UMICRO #### [facility] [address] [place] [address] Dr. Ashlie Hills YEAST PRESENT Abnormal NONE SEEN [facility] Comment on above: Performed By: #### E RUR, UMICRO #### [facility] [address] [place] [address] Dr. Ashlie Hills HIP RIGHT 1 OR 2 VWS WITH PE LVISon 07-20-2020 HIP RIGHT 1 OR 2 VWS WITH PELVIS [facility] Department of Radiology [address] [place] [id number] Patient Name: MITZI MACIAS : 1970 Sex: F Age: Race: White Pt. Location: Patient Status: O Ordered Date: 07/20/2020 1:45:00 PM Completed Date: 07/20/2020 01:57 PM Requesting Provider: LIZ EISENBERG Attending Provider: LIZ EISENBERG Report Copy To: MCKAYLA BLAS Signs & Symptoms: M25.551 Pain in right hip I10 History: [place] Comments: evaluate Exam: HIP RIGHT 1 OR [...] MRI. Electronically signed: Pipo Acevedo. Transcribed by: [email or web address], User Resident: Electronically Signed by: PIPO ACEVEDO @ 07/20/2020 03:45 PM Normal [facility] Comment on above: Order Comment: evalu ate Vital Signs Date Time Vital Sign Value Performing Clinician Facility 04-14-2024 10: Body height 165.1 cm Mckayla Blas FRAME CLEANER Work Phone: [facility] 04-14-2024 10: Body mass index (BMI) [Ratio] 61.01 kg/m2 Mckayla Blas FRAME CLEANER Work Phone: [facility] 04-14-2024 10: Body temperature 98.49 [degF] Mckayla Blas FRAME CLEANER Work Phone: [facility] 04-14-2024 10:27-0400 Body weight 166.29 kg Mckayla Blas FRAME CLEANER Work Phone: [facility] 04-14-2024 10:27-0400 Diastolic blood pressure 80 mm[Hg] Mckayla Rosenbergz FRAME CLEANER Work Phone: [facility] 04-14-2024 10:27-0400 Heart rate 77 /min Mckayla Rosenbergz FRAME CLEANER Work Phone: [facility] 04-14-2024 10:27-0400 Respiratory rate 19 /min Mckayla Rosenbergz FRAME CLEANER Work Phone: [facility] 04-14-2024 10:27-0400 SaO2% (BldA) [Mass fraction] 92 % Mckayla Blas FRAME CLEANER Work Phone: [facility] 04-14-2024 10:27-0400 Systolic blood pressure 116 mm[Hg] Mckayla Blas FRAME CLEANER Work Phone: [facility] 03-08-2022 15:00-0400 Body height 170.18 cm Stephanie Tico Other [employer] Other 03-08-2022 15:00-0400 Body temperature 97.6 [degF] Stephanie Tico Other [facility] Other 03-08-2022 15:00-0400 Diastolic blood pressure 72 mm[Hg] Stephanie Tico Other [facility] Other 03-08-2022 15:00-0400 Respiratory rate 20 /min Stephanie Tico Other [employer] Other 03-08-2022 15:00-0400 SaO2% (BldA) [Mass fraction] 91 % Stephanie Tico Other [facility] Other 03-08-2022 15:00-0400 Systolic blood pressure 131 mm[Hg] Stephanie Tico Other [facility] Other 02-20-2022 09:20-0400 Body height 170.18 cm Stephanie Tico Other [facility] Other 02-20-2022 09:20-0400 Body temperature 96.5 [degF] Stephanie Tico Other [facility] Other 02-20-2022 09:20-0400 Diastolic blood pressure 69 mm[Hg] Stephanie Tico Other [facility] Other 02-20-2022 09:20-0400 Respiratory rate 20 /min Stephanie Tico Other [facility] Other 02-20-2022 09:20-0400 SaO2% (BldA) [Mass fraction] 91 % Stephanie Tico Other [facility] Other 02-20-2022 09:20-0400 Systolic blood pressure 129 mm[Hg] Stephanie Tico Other [employer] Other 02-06-2022 10:24-0400 Blood Pressure Location Elbert REGLA [facility] 02-06-2022 10:24-0400 Diastolic blood pressure 76 mm[Hg] Elbert VARGAS [facility] 02-06-2022 10:24-0400 Heart rate 70 /min Elbert VARGAS [facility] 02-06-2022 10:24-0400 Respiratory rate 16 /min Elbert VARGAS [facility] 02-06-2022 10:24-0400 Systolic blood pressure 134 mm[Hg] Elbert VARGAS [facility] Encounters Encounter Date Encounter Type Care Provider Facility Start: 06-04-2024 ambulatory SARAH E SILVIA Facili ty:[facility] Mckee Start: 05-08-2024 ambulatory SARAH E SILVIA Facili ty:[facility] Villalobos Start: 04-14-2024 End: 04-14-2024 Bamboo flowsheet Mckayla Blas FRAME CLEANER Work Phone: [facility] Start: 04-14-2024 End: 04-14-2024 Bamboo flowsheet Mckayla Blas FRAME CLEANER Work Phone: [facility] Start: 04-14-2024 End: 04-14-2024 Office outpatient visit 25 minutes Mckayla Blas NP Work Phone: [facility] Comment on above: Primary hypertension (CMS/HCC) [...] Start: 01-17-2024 Patient encounter procedure Mckayla Aichholz FRAME CLEANER Work Phone: [facility] Start: 01-17-2024 End: 01-17-2024 ambulatory MCKAYLA AICHHOLZ Not Available Start: 11-15-2023 End: 11-15-2023 ambulatory MCKAYLA AICHHOLZ Not Available Start: 11-14-2023 End: 11-14-2023 ambulatory [facility] Start: 11-01-2023 End: 11-01-2023 ambulatory MCKAYLA AICHHOLZ Not Available Start: 09-27-2023 End: 09-27-2023 ambulatory MCKAYLA AICHHOLZ Not Available Start: 08-17-2023 Refill Mckayla Aichholz FRAME CLEANER Work Phone: [facility] Comment on above: Vaginal yeast infect ion (Primary Dx) Start: 08-14-2023 Refill Mckayla Aichholz FRAME CLEANER Work Phone: [facility] Comment on above: Type 2 diabetes asiya itus with unspecified complications (CMS/[facility]); Edema, unspecified; Edema Start: 07-10-2023 End: 07-10-2023 ambulatory MCKAYLA AICHHOLZ Not Available Start: 12-05-2022 ambulatory NARENDRANATH LAKSHMIPATHY . Facility:[facility] Start: 12-05-2022 End: 12-06-2022 Evaluation and management of inpatient UMBERTO ALONDRA . Facility:[facility] Start: 11-23-2022 End: 11-23-2022 ambulatory BOOMSWING OPERATOR MCKAYLA AICHHOLZ Facility:[facility] Start: 11-22-2022 End: 11-23-2022 ambulatory BOOMSWING OPERATOR MCKAYLA AICHHOLZ Facility:[facility] Start: 11-17-2022 End: 11-18-2022 ambulatory SUBHASH CHASITY . Facility:[facility] Start: 11-15-2022 End: 11-15-2022 Patient encounter procedure SARAH VEGA [facility] Start: 10-05-2022 End: 10-05-2022 ambulatory MARIANO LOZANO . Facility:[facility] Start: 09-21-2022 End: 09-21-2022 ambulatory SAYDA GANA LARACayetanoJODIE Facility:[facility] Start: 09-14-2022 ambulatory RAFAEL Ribera y:[facility] Start: 08-24-2022 End: [address] CHAPARRO MORTENSEN . Facility:[facility] Start: 08-21-2022 End: 08-22-2022 ambulatory [facility] Braulio [facility] Facility:[facility] Start: 07-27-2022 End: 07-28-2022 ambulatory CECILIA MILANLYTray . Facility:[facility] Start: 07-18-2022 End: 07-19-2022 ambulatory CECILIA TAMLYN . Facility:[facility] Start: 07-18-2022 End: 07-19-2022 ambulatory [facility] Braulio [facility] Facility:[facility] Start: 07-06-2022 End: 07-06-2022 ambulatory SAYDA BLAS Facility:[facility] Start: 05-11-2022 End: 05-12-2022 ambulatory GIL VALENZUELA . Facility:[facility] Start: 04-25-2022 End: 04-25-[address] CHAPARRO MORTENSEN . Facility:[facility] Start: 04-20-2022 End: 04-21-2022 ambulatory GIL VALENZUELA . Facility:[facility] Start: 03-08-2022 End: 03-08-2022 ambulatory Stephanie Tico Other [employer] Other Start: 03-08-2022 Office outpatient vi sit 15 minutes Stephanie Tico [facility] Start: 03-03-2022 End: 03-04-2022 ambulatory BOOMSWING OPERATOR MCKAYLA LARACayetanoJODIE Facility:[facility] Start: 02-20-2022 End: 02-20-2022 ambulatory Stephanie Tico Other [employer] Other Start: 02-20-2022 Office outpatient ne w 45 minutes Stephanie Tico [facility] Start: 02-06-2022 End: 02-06-2022 Patient encounter procedure Elbert VARGAS [facility] Start: 01-19-2022 End: 01-20-2022 ambulatory GIL VALENZUELA . Facility:[facility] Start: 12-24-2021 End: 12-24-2021 ambulatory OLE RAMIREZ Facility: Start: 08-26-2020 End: 09-10-2020 Patient encounter procedure MARY TAVERAS Facility:[facility] Start: 10-30-2019 End: 10-30-2019 Emergency department patient visit JAMES Reis Amaury [facility] Start: 10-30-2019 End: 10-30-2019 Emergency department patient visit James Desouza [facility] Emergency Department Start: 11-02-2016 Preoperative state Stephanie Tico Other [employer] Other Procedures Date Procedure Procedure Detail Performing Clinician Start: 12-14-2023 Mammography Mckayla clifford FRAME CLEANER Work Phone: Start: 11-22-2022 Mammography Mckayla clifford FRAME CLEANER Work Phone: Start: 10-08-2015 Microscopic observat ion [Identifier] in Cervix by Cyto stain Mckayla Blas FRAME CLEANER Work Phone: H/O: hysterectomy Elbert LARA Laparoscopic cholecystectomy Elbert VARGAS Operative procedure on foot Elbert VARGAS Plan of Treatment Date Care Activity Detail Author Start: 08-03-2025 Screening for malignant neoplasm of colon [facility] Start: 01-16-2025 Medicare Annual Wellness (AWV) Medicare Annual Wellness (AWV) [facility] Start: 12-13-2024 Screening for malignant neoplasm of breast Mammogram [facility] Start: 11-11-2024 Urine screening for protein Diabetes: Urine Protein Screening [facility] Start: 07-14-2024 End: 07-14-2024 Patient encounter procedure 07/14/2024 6:30 PM EST Office Visit [facility] [address] [place] [address] Mckayla Blas, FRAME CLEANER [address] [place] [phone] [facility] Start: 07-14-2024 End: 07-14-2024 Patient encounter procedure 07/14/2024 10:10 AM EST Office Visit [facility] [address] [place] [address] Rain Odonnell MD [address] [place] [address] [facility] Start: 06-06-2024 Influenza vaccination Influenza Vacc ine (#1) [facility] Comment on above: Postponed from 03/09 (Patient Refused) Start: 05-17-2024 Hemoglobin A1c measurement Diabetes: Hemoglobin A1C [facility] Start: 05-15-2024 End: 05-15-2024 Patient encounter procedure 05/15/2024 11:20 AM EST Office Visit [facility] [address] [place] [address] Rain Odonnell MD [address], [address] [place] [address] [facility] Start: 04-14-2024 End: 04-14-2024 Patient encounter procedure 04/14/2024 11:00 AM EDT Office Visit [facility] [address] [place] [address] Mckayla Blas, FRAME CLEANER [address] [place] [phone] Arrived [facility] Comment on above: Arrived Start: 03-09-2024 Influenza vaccination Influenza Vacc ine (#1) [facility] Start: 02-19-2024 Hemoglobin A1c measurement Diabetes: Hemoglobin A1C [facility] Start: 11-24-2023 Urine screening for protein Diabetes: Urine Protein Screening [facility] Start: 11-23-2023 Screening for malignant neoplasm of breast Mammogram [facility] Start: 10-15-2023 End: 10-15-2023 Patient encounter procedure 10/15/2023 4:30 PM EDT Office Visit [facility] [address] [place] [address] Mckayla Blas, SILVANO [address] [place] [address] [facility] Start: 08-09-2023 Hemoglobin A1c measurement Diabetes: Hemoglobin A1C [facility] Start: 05-27-2021 Glaucoma screening Diabetes: R etinopathy Screening [facility] Start: 03-09-2020 Influenza vaccination Flu vacc ine (Season Ended) [place], [place] Start: 10-07-2018 Screening for malignant neoplasm of cervix [facility] Start: 2010 Lipid panel Lipid screen [place], [place] Start: 2000 Screening for malignant neoplasm of cervix HPV/Cotest [facility] Start: 1991 Screening for malignant neoplasm of cervix Cervical cancer screen [place], [place] Start: 1989 DTaP/Tdap/Td vaccine (1 - Tdap) DTaP/Tdap/Td vaccine (1 - Tdap) [place] Start: 1985 HIV screening HIV screen [place], [place] Start: 1970 Medicare Annual Wellness (AWV) Medicare Annual Wellness (AWV) [facility] Start: 1970 Screening for malignant neoplasm of colon [facility] Immunizations Immunization Date Immunization Notes Care Provider Fa cility 05-18-2023 influenza, injectabl e, quadrivalent, contains preservative Mckayla Blas NP Work Phone: [facility] 05-18-2023 influenza virus vacc ine, unspecified formulation Mckayla Blas FRAME CLEANER Work Phone: [facility] 07-19-2021 SARS-CoV-2 (COVID-19 ) mRNA BNT-162b2 vax SARAH GANRY [facility] 10-28-2020 SARS-CoV-2 (COVID-19 ) mRNA BNT-162b2 vax SARAH SILVIA [facility] 10-08-2020 SARS-CoV-2 (COVID-19 ) mRNA BNT-162b2 vax SARAH SILVIA [facility] 04-16-2017 influenza virus vacc ine, unspecified formulation Mckayla Aichholz FRAME CLEANER Work Phone: [facility] 04-16-2017 pneumococcal polysaccharide vaccine, 23 valent Mckayla Aichholz FRAME CLEANER Work Phone: [facility] 05-10-2016 influenza virus vacc ine, unspecified formulation Mckayla Aichholz FRAME CLEANER Work Phone: [facility] 05-02-2013 influenza virus vacc ine, whole virus Mckayla Aichholz FRAME CLEANER Work Phone: [facility] 01-29-1998 measles, mumps and rubella virus vaccine Mckayla Aichholz FRAME CLEANER Work Phone: [facility] Payers Date Payer Category Payer Private Health Insurance [facility] [id number] 2023-Present [address] [address] [place] [address] [id number] 2023 Private Health Insurance [id number] 2023 Medicare [id number] 2018 Medicaid MEDICAID [facility] [id number] 2018-Present [phone] [address] [place] [address] Medicaid [id number] 2017 Medicare [id number]. [id number] 1970 Unknown [id number] 2.16.840.1.001170.3.579.2. 647 1970 Unknown [id number] 2.16.840.1.255465.3.579.2. 593 1970 Unknown [id number] 2.16.840.1.770231.3.579.2. 593 1970 Unknown [id number] 2.16.840.1.553968.3.579.2. 593 1970 Unknown [id number] 2.16.840.1.838703.3.579.2. 593 1970 Unknown [id number] 2.16.840.1.098889.3.579.2. 593 1970 Unknown [id number] 2.16.840.1.557928.3.579.2. 593 1970 Unknown [id number] 2.16.840.1.647668.3.579.2. 593 1970 Unknown [id number] 2.16.840.1.565817.3.579.2. 593 1970 Unknown [id number] 2.16.840.1.529590.3.579.2. 593 1970 Unknown [id number] 2.16.840.1.731996.3.579.2. 593 1970 Unknown [id number] 2.16.840.1.004844.3.579.2. 593 1970 Unknown [id number] 2.16.840.1.445197.3.579.2. 593 1970 Unknown [id number] 2.16.840.1.451499.3.579.2. 593 1970 Unknown [id number] 2.16.840.1.046367.3.579.2. 593 1970 Unknown [id number] 2.16.840.1.614452.3.579.2. 593 1970 Unknown [id number] 2.16.840.1.940461.3.579.2. 593 1970 Unknown [id number] 2.16.840.1.574531.3.579.2. 593 1970 Unknown [id number] 2.16.840.1.127864.3.579.2. 593 1970 Unknown [id number] 2.16.840.1.842510.3.579.2. 59 1970 Unknown [id number] 2.16.840.1.337749.3.579.2 59 1970 Unknown [id number] 2.16.840.1.543679.3.579.2. 59 1970 Unknown [id number] 2.16.840.1.078663.3.579.2 59 1970 Unknown [id number] 2.16.840.1.086626.3.579.2. 1259 1970 Unknown [id number] 2.16.840.1.022868.3.579.2. 1259 1970 Unknown [id number] 2.16.840.1.918196.3.579.2. 1259 1970 Unknown [id number] 2.16.840.1.509077.3.579.2. 1259 1970 Unknown [id number] 2.16.840.1.720575.3.579.2. 1259 1970 Unknown [id number] 2.16.840.1.897633.3.579.2. 1259 1970 Unknown [id number] 2.16.840.1.258064.3.579.2. 727 1970 Unknown [id number] 2.16.840.1.475648.3.579.2. 727 1959 Medicaid [id number] 1959 Private Health Insurance [id number] 1959 Unknown [id number] 2.16.840.1.827893.19 Social History Date Type Detail Facility Start: 02-17-2014 End: 07-10-2023 Tobacco smoking status NHIS Current every day smoker [place], [place] Start: 02-17-1994 History of tobacco use Cigarette Smo ker [place] Start: 02-17-2014 End: 07-10-2023 Cigarettes smoked current (pack per day) - Reported [place] Start: 02-17-2014 Alcohol intake Current drinke r of alcohol (finding) [place] Start: 02-17-2014 Alcohol Comment Rare [facility] [place], [place] Start: 1970 Sex Assigned At Not on file [place], [place] Exposure to SARS-CoV -2 (event) Unable to assess [place] Start: 02-06-2022 Tobacco smoking status Smoker (findi ng) [facility] Start: 07-10-2023 End: 01-17-2024 Sex Assigned At Female [facility] Start: 11-15-2022 Tobacco smoking status Heavy t obacco smoker (finding) [facility] Start: 07-10-2023 Tobacco use and exposure Smoke less tobacco non-user [facility] Start: 07-10-2023 End: 04-14-2024 Alcohol intake Lifetime non-drinker (finding) [facility] Within the last year , have you been afraid of your partner or ex-partner? No [facility] Do you belong to any clubs or organizations such as caodaism groups, unions, fraternal or athletic groups, or [...] Equipment Origin al Text Equipment Identifier Dates [id number] Start: 01-18-2024 Functional Status Date Assessment Result Facility 11-15-2022 Functional Status N/A [facility] 02-06-2022 Functional Status N/A [facility] Clinical Notes 01-19-2022 to 04-14-2024 Mckayla Blas [...] complication, with long-term current use of insulin ([facility]) Check blood sugars daily, follow w [...] being taken. She does not see a senior contracts manager.Eye exam is not current. Hypertension This is [...] or chew. ergocalciferol (Vitamin D2) 1.25 MG (58142 UT) capsule TAKE 1 CAPSULE BY MOUTH ONE TIME PER WEEK furosemide (LASIX) 20 mg, Oral, Daily PRN, Take in the afternoon as needed furosemide (LASIX) 40 mg, Oral, Daily Glucose Blood (ACCU-CHEK JAQUI PLUS ) 4 times daily HumaLOG KWIKPEN 100 UNIT/ML injection Subcutaneous hydrALAZINE (APRESOLINE) 25 mg, Oral, 2 times daily HYDROcodone-acetaminophen ([place]) 5-325 MG tablet 1 tablet, 3 times [...] CT Albuminuria 09/17/2023 Angiomyolipoma Anxiety and depression ([facility]) 07/10/2023 Asthma ([facility]) 07/10/2023 Cellulitis of left lower extremity Cervical cancer ([facility]) 09/17/2023 Chronic pain of both knees 09/17/2023 COPD (chronic obstructive pulmonary disease) ([facility]) 07/10/2023 COPD exacerbation [facility] 09/17/2023 Decreased functional mobility 09/17/2023 Diabetic neuropathy ([facility]) 07/10/2023 Edema 07/10/2023 Elevated sed rate Elevated WBC count GERD (gastroesophageal reflux disease) 09/17/2023 Hyperlipidemia ([facility]) 09/17/2023 Hypertension ([facility]) 07/10/2023 Insomnia 09/17/2023 Lower extremity edema 09/17/2023 Obstructive sleep apnea 07/10/2023 PAD (peripheral artery disease) ([facility]) 09/17/2023 Pancreatitis 09/17/2023 Pneumonia 09/17/2023 Pulmonary hypertension ([facility]) 09/17/2023 Radiculopathy, lumbar region 09/17/2023 Tobacco user 09/17/2023 Type 2 diabetes mellitus with complication, with long-term current use of insulin ([facility]) 07/10/2023 Unilateral primary osteoarthritis, right hip 09/17/2023 [...] List Items Addressed This Visit Diabetic neuropathy ([facility]) Continue with tristan EAST reviewed Fu in 3 months Relevant Medications pregabalin (Lyrica) 300 MG capsule COPD (chronic obstructive pulmonary disease) ([facility]) - Primary Stable at this time, no changes in meds Encouraged smoking cessation Cont with dr Yañez Hypertension ([facility]) Stable on current meds Refill meds Relevant Medications hydrALAZINE (Apresoline) 25 MG tablet lisinopril 20 MG tablet Type 2 diabetes mellitus with complication, with long-term current use of insulin ([facility]) Check blood sugars daily, follow w [...] 81 MG chewable tablet Anxiety and depression (CMS/HCC) Relevant Medications DULoxetine (Cymbalta) [address] [...] 500 MCG tablet documented in this encounter [facility] 11-14-2023 Note [place] [facility] Subjective Mitzi Macias is a 53 y.o. year old female being seen as new patient to establish care. Ref from Mckayla Blas CNP for pulmonary hypertension. She had echo in Aug 2023 while inpatient at [facility] for pneumonia and COPD exacerbation. [...] wheelchair Skin: Gene (more content not included)... [facility] 11-15-2022 Hospital Discharge instructions Patient Education [...] include: ?8 oz (237 mL) of milk, oilttyu-vrvkovibftiq-jipxd milk, and calcium-fortifiedfruit juice. Calcium-fortified means that [...] ?Spinach (cooked), rhubarb, beets, sweet potatoes, and Russian chard. ?Peanuts. ?Potato chips, romansh fries, and baked potatoes with skin on. ?Nuts and nut products. ?Chocolate. If you regularly take a diuretic medicine, make sure to eat at least 1 or 2 servings of fruits or vegetables that are high in potassium each day. These include: ?Avocado. ?Banana. ?Ellerbe, prune, carrot, or tomato juice. ?Baked potato. [...] magnesium, fish oil, or vitamin B6. Take loid-xeu-aboolqu and prescription medicines only as told by [...] Casseroles. Pizza. Lasagna. Frozen meals. Potato chips. Mohawk fries. The items listed above may not [...] provider. Document Revised: 03/06/2022 Document Reviewed: 03/06/2022 [employer] Patient Education 2022 [employer]. Follow Up Care 02/06/2022 11:44:09 With:SARAH VEGA PA-C, URL Address: [address] [place] [address] When: Unknown [facility] 08-24-2022 Note CONSULTATION CONSULTATION DATE: 08/24/2022 HISTORY [...] We maintain her on pain medication with [place] 5/325 t.i.d., diclofenac 75 mg b.i.d. Her [...] her at this point. A refill for [place] 5/325 t.i.d. and diclofenac 75 mg b.i.d. [...] 150. Medications include Lyrica 300 mg b.i.d., [place] 5/325 t.i.d., diclofenac 75 mg b.i.d. and [...] her medications today. We will maintain Lyrica, [place] and diclofenac at the set dose and [...] medications include Tylenol, Lyrica 300 mg b.i.d., [place] 5/325 t.i.d., amitriptyline, diclofenac and duloxetine. Patient's [...] lisinopril I will continue that. Feb, Kimani raegan doty w cr kid I-IV (ICD-10 - [...] to the DANIEL. Thrombocytopenia is unclear etiology. [facility] Other 08-15-2022 Evaluation note* Encounter Date Diagnosis [...] follow with Dr. Odonnell and Dr. Vargas. [facility] Other 08-01-2022 Hospital Discharge instructions Patient Education [...] fried and sweet foods. General instructions Take dgon-arv-zjqjvsz and prescription medicines only as told by [...] 04/21/2010 Document Revised: 10/16/2019 Document Reviewed: 07/11/2018 [employer] Patient Education 2020 [employer]. Follow Up Care 01/05/2022 12:02:03 With:REGLA PHIPPS, Elbert Joya, URL Address: [facility] [address], [place] [phone] When:Within 6 Month(s) Comments:w/ repeat CT A/P [facility] Wilfredo 07-14-2022 NoteCONSULTATION PROCEDURE DATE: 01/19/2022 PRE [...] pattern and the patient tolerated it well. [facility] Signed and Approved by: GIL VALENZUELA . 01/27/2022 14:15:00[facility]07-14-2022 NoteCONSULTATION CONSULTATION DATE: 01/19/2022 This is a [...] today. Medications include Lyrica 300 mg b.i.d., [place] 5/325 t.i.d., diclofenac 75 mg b.i.d. and [...] in three months' time unless otherwise indicated. [facility] Signed and Approved by: GIL VALENZUELA . 01/27/2022 14:15:00[facility] Future Appointments Appointment Date:08/14/2022 09:15:00 AM Scheduled Provider:Elbert VARGAS MD Location:[facility] Appointment Type:URO Office Visit [facility] evaluation + Plan note Future Appointments Appointment Date:04/22/2024 10:00:00 AM Scheduled Provider:SARAH VEGA PA-C Location:[facility] Appointment Type:URO Office Visit [facility] evaluation note* Diagnosis Type 2 diabetes mellitus with unspecified complications ([facility]) Edema, unspecified Edema [facility] Diagnosis Vaginal yeast infection- Primary Candidiasis of vulva and vagina documented [facility] Diagnosis Primary hypertension ([facility]/H[facility])- Primary Unspecified essential hypertension Insomnia Insomnia, unspecified Type 2 diabetes mellitus with complication, with long-term current use of insulin ([facility]) Non-seasonal allergic rhinitis, unspecified trigger Type 2 diabetes mellitus with unspecified complications (CMS/HCC) Anxiety and depression ([facility]) Gastro-esophageal reflux disease without esophagitis Edema, unspecified Edema Diabetic polyneuropathy associated with type 2 diabetes mellitus ([facility]CC) Chronic obstructive pulmonary disease, unspecified (CMS/HCC) Pulmonary [...] History sepsis 2010 Hospitalization History SEE ABOVE [facility] Other Hospital course Narrative No data available for this section [facility] progress note No data available for this section [facility] reason for referral (narrative) , Referral to Dr. 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 Advance Directives and Living Will Power of Assistant To The [employer] Summary Purpose Family History No Family History Records FoundNo Family History Records FoundNo Family History Records FoundNo Family History Records FoundNo Family History Records FoundNo Family History Records Found Additional Source Comments INFORMATION SOURCE (unrecogn ized section and content) DATE CREATED AUTHOR 10/30/2019 [facility] DATE CREATED AUTHOR AUTHOR'S ORGANIZ ATION 09/15/2020 [facility] DATE CREATED AUTHOR AUTHOR'S ORGANIZ ATION 12/19/2022 [facility] DATE CREATED AUTHOR AUTHOR'S ORGANIZ ATION 11/16/2023 [facility] DATE CREATED AUTHOR AUTHOR'S ORGANIZ ATION 04/15/2024 [facility] dical Specialists EPIC DATE CREATED AUTHOR AUTHOR'S ORGANIZ ATION 05/06/2024 [facility] Care Team (unrecognized sect ion and content) Supervisor Shop Relationship Specialty Start Date End Date Ty Amin MD PCP - General Family Medicine 01/05/23 Supervisor Shop Relationship Specialty Start Date End Date Ty Amin MD PCP - General Family Medicine 01/05/23 Supervisor Shop Relationship Specialty Start Date End Date Ty Amin MD [address] [place] [phone] PCP - General Family Medicine 09/20/23 Mckayla Blas NP [address] [place] [address] PCP - [facility] 09/07/23 09/05/90 Mckayla Blas NP [address] [place] [address] Nurse Practitioner Family Medicine 09/20/23 Supervisor Shop Relationship Specialty Start Date End Date Ty Amin MD [address] [place] [address] PCP - General Family Medicine 09/20/23 Mckayla Blas NP [address] [place] [address] [facility] 09/07/23 09/05/90 Mckayla Blas NP [address] [place] [address] Nurse Practitioner Family Medicine 09/20/23 REASON FOR [...] BE BASED ON THE PRIMARY CLINICAL RECORDS. [facility] [employer] [facility]. provides no warranty or guarantee of the accuracy or completeness of information in this document.
== END 2024-05-07 14:28 | disposition home or self-care (01) ==
LOC: WC 14:27
PROVIDERS: PCP Nurse Practitioner; Visit Provider Physician Assistant
DX: I87.311 Chronic venous hypertension (idiopathic) with ulcer of right lower extremity (principal); L97.812 Non-pressure chronic ulcer of other part of right lower leg with fat layer exposed
CPT/HCPCS: G0463

== ENCOUNTER 2024-05-12 08:30 | Outpatient (OUT) | payer MEDICARE, OTHER, SELFPAY ==
--- NOTE | 2024-05-12 08:43 | CT_ITS ---
The [address] [address] Patient Name: SINA NICHOLE MRN: [id number] date: 1970 Sex: F Assigned Patient Location: CT Current Patient Location: Accession/Order Number: [id number] Exam Date: 05/12/2024 11:15 Report Date: 05/12/2024 14:16 At the request of: SARAH VEGA Procedure: CT abdomen pelvis w con EXAM: CT abdomen pelvis w con HISTORY: Abnormal Mass COMPARISON: CT abdomen and pelvis 10/05/2022.. TECHNIQUE: Following intravenous administration of 1 cc of Omnipaque 300, axial soft tissue windows of the abdomen and pelvis were performed with coronal and sagittal reformats. CT dose reduction technique was used including Automated Exposure Control. Findings: ABDOMEN: There is fatty infiltration of the liver. The gallbladder is surgically absent. The spleen and pancreas are unremarkable. Nonobstructing 0.4 cm stone within the left kidney. No renal collecting system or ureteral dilatation bilaterally. Unremarkable right adrenal gland. Redemonstrated originating from the left adrenal gland is a 4.4 cm nodule with regions of macroscopic fat density likely relating to a myelolipoma. Evaluation of the bowel is limited given the absence of oral contrast. There are colonic diverticula. No bowel obstruction. The appendix is nondilated. The aorta is normal caliber. Mild atherosclerotic disease. No enlarged abdominal lymph nodes or free abdominal fluid. Body wall edema. Small fat-containing umbilicus hernia. Pelvis: Unremarkable bladder. The uterus is surgically absent. No enlarged pelvic lymph nodes or free pelvic fluid. No aggressive sclerotic or lytic osseous lesion. Grade 1 anterolisthesis of L4 on L5. Multilevel degenerative spondylosis. Findings are most pronounced extending from L3 caudally through S1. Severe right hip osteoarthritis. CT/CT abdomen pelvis w con IMPRESSION: 1. Left adrenal myelolipoma. 2. Nonobstructing left renal stone. 3. Other nonemergent findings, as described above. Electronically authenticated by: DAR MAY Date: 05/12/2024 14:16
--- OUTSIDE RECORDS SUMMARY | 2024-05-12 08:52 | XMS_ITS | CCD ---
Author Organization [facility] Care Team Providers Care Final Finisher Name Role Phone James Desouza Primary Care Provider JAMES DESOUZA Primary Care Unavailable SHENDGE, VITHAL Admitting Unavailable SHENDGE, VITHAL Attending Unavailable AICHHOLZ, MCKAYLA Primary Care Unavailable AICHHOLZ, MCKAYLA Referring Unavailable AICHHOLZ, MCKAYLA J Primary Care Physician Tico, Stephanie Unavailable OLE RAMIREZ Attending Unavailable OLE RAMIREZ Consulting Unavailable AICHHOLZ, BOW TACKER MCKAYLA Primary Care Unavailable OLE RAMIREZ Admitting Unavailable ANTONY SHRESTHA Consulting Unavailable ALONDRA ., UMBERTO Admitting Unavailable ALONDRA ., UMBERTO Attending Unavailable AICHHOLZ, BOW TACKER MCKAYLA Primary Care Unavailable AFSANEH Loera, DR BOLANOS Consulting Unavailable MARYANNE POWER Consulting Unavailable GLENN KERR Consulting Unavailable YOMAIRA KERR Consulting Unavailable HATTIE GOFF Consulting Unavailable ALONDRA ., UMBERTO Consulting Unavailable TICO, STEPHANIE Attending Unavailable TICO, STEPHANIE Consulting Unavailable AICHHOLZ, BOW TACKER MCKAYLA Primary Care Unavailable TICO, STEPHANIE Admitting Unavailable REGLA ., DR DUMONT Admitting Unavailable AICHHOLZ, BOW TACKER MCKAYLA Primary Care Unavailable REGLA ., DR DUMONT Attending Unavailable VARGAS ., DR DUMONT Consulting Unavailable COLLIN HUERTAS Consulting Unavailable CECILIA KAUFMAN Admitting Unavailable CECILIA KAUFMAN Attending Unavailable AICHHOLZ, BOW TACKER MCKAYLA Primary Care Unavailable RAFAEL GONGORA Attending Unavailable RAFAEL GONGORA Admitting Unavailable AICHHOLZ, BOW TACKER CMKAYLA Primary Care Unavailable AICHHOLZ, BOW TACKER MCKAYLA Admitting Unavailable AICHHOLZ, BOW TACKER MCKAYLA Primary Care Unavailable AICHHOLZ, BOW TACKER MCKAYLA Attending Unavailable AICHHOLZ, BOW TACKER MCKAYLA Consulting Unavailable LAKSHMIPATHY ., NARENDRANATH Attending Anette vailable LAKSHMIPATHY ., NARENDRANATH Consulting Anette vailable LAKSHMIPATHY ., NARENDRANATH Admitting Anette vailable AICHHOLZ, BOW TACKER MCKAYLA Primary Care Unavailable VALENZUELA ., GIL Consulting Unavailable MORTENSEN ., DR CHAPARRO Aguillon Attending Unavailable MORTENSEN ., DR CHAPARRO Aguillon Admitting Unavailable AICHHOLZ, BOW TACKER MCKAYLA Primary Care Unavailable VALENZUELA ., GIL Consulting Unavailable MORTENSEN ., DR CHAPARRO Aguillon Admitting Unavailable AICHHOLZ, BOW TACKER MCKAYLA Primary Care Unavailable MORTENSEN ., DR CHAPARRO Aguillon Attending Unavailable HALKER ., SUBAHSH Consulting Unavailable LAKSHMIPATHY ., NARENDRANATH Admitting Anette vailable LAKSHMIPATHY ., NARENDRANATH Attending Anette vailable AICHHOLZ, BOW TACKER MCKAYLA Primary Care Unavailable MORTENSEN ., DR CHAPARRO Aguillon Attending Unavailable MORTENSEN ., DR CHAPARRO Aguillon Admitting Unavailable VALENZUELA ., GIL Consulting Unavailable AICHHOLZ, BOW TACKER MCKAYLA Primary Care Unavailable VALENZUELA ., GIL Consulting Unavailable MORTENSEN ., DR CHAPARRO Aguillon Attending Unavailable MORTENSEN ., DR CHAPARRO Aguillon Admitting Unavailable AICHHOLZ, BOW TACKER MCKAYLA Primary Care Unavailable HATTIE BRODERICK Attending Unavailable HATTIE BRODERICK Admitting Unavailable AICHHOLZ, BOW TACKER MCKAYLA Primary Care Unavailable AICHHOLZ, BOW TACKER MCKAYLA Admitting Unavailable AICHHOLZ, BOW TACKER MCKAYLA Consulting Unavailable AICHHOLZ, BOW TACKER MCKAYLA Primary Care Unavailable AICHHOLZ, BOW TACKER MCKAYLA Attending Unavailable AICHHOLZ, BOW TACKER MCKAYLA Primary Care Unavailable MISC, DR LESLIE Admitting Unavailable MISC, DR LESLIE Attending Unavailable MISC, DR LESLIE Consulting Unavailable DIAB ., MARIANO Admitting Unavailable DIAB ., MARIANO Attending Unavailable DIAB ., MARIANO Consulting Unavailable AICHHOLZ, BOW TACKER MCKAYLA Primary Care Unavailable RASTEGAR, RICCO Consulting Unavailable AICHHOLZ, BOW TACKER MCKAYLA Admitting Unavailable AICHHOLZ, BOW TACKER MCKAYLA Primary Care Unavailable AICHHOLZ, BOW TACKER MCKAYLA Attending Unavailable AICHHOLZ, BOW TACKER MCKAYLA Consulting Unavailable DR PATRICIA IVAN Consulting Unavailable TAMLYN ., CECILIA Attending Unavailable TAMLYN ., CECILIA Admitting Unavailable DR PATRICIA IVAN Consulting Unavailable AICHHOLZ, BOW TACKER MCKAYLA Primary Care Unavailable TAMLYN ., CECILIA Consulting Unavailable MORTENSEN ., DR CHAPARRO Aguillon Attending Unavailable FESTUS ., DR CHAPARRO Aguillon Consulting Unavailable FESTUS ., DR CHAPARRO Aguillon Admitting Unavailable AICHHOLZ, BOW TACKER MCKAYLA Primary Care Unavailable HATTIE BRODERICK Attending Unavailable HATTIE BRODERICK Consulting Unavailable HATTIE BRODERICK Admitting Unavailable AICHHOLZ, BOW TACKER MCKAYLA Primary Care Unavailable HATTIE BAUTISTA Unavailable AICHHOLZ, SAYDA MCKAYLA Admitting Unavailable AICHHOLZ, BOW TACKER MCKAYLA Attending Unavailable AICHHOLZ, BOW TACKER MCKAYLA Consulting Unavailable AICHHOLZ, BOW TACKER MCKAYLA Primary Care Unavailable Ty Amin MD Primary Care Provider [phone] BHARAT AGUILAR Attending Unavailable AICHHOLZ, MCKAYLA Attending Unavailable AICHHOLZ, MCKAYLA Attending Unavailable AICHHOLZ, MCKAYLA Attending Unavailable AICHHOLZ, MCKAYLA Attending Unavailable AICHHOLZ, MCKAYLA Attending Unavailable AICHHOLZ, MCKAYLA Attending Unavailable Ty Amin MD Primary Care Provider [phone] Aichholz SHIRT FOLDING MACHINE OPERATOR, Mckayla Unavailable Aichholz SHIRT FOLDING MACHINE OPERATOR, Mckayla Unavailable SARAH VEGA Attending Unavailable SARAH VEGA Attending Unavailable Allergies Allergy Classification Reported Allergen(s) Allergy Type Date of Onset Reaction(s) Facility (1 source) No Known Medication Allergies; Translations: [No Known Medication Allergies] Propensity to adverse reactions (disorder) [facility] Repository Medications Current Medications Medication Drug Class(es) Dates Sig (Normalized) Sig (Original) acetaminophen 325 mg / HYDROcodone bitartrate 5 mg oral tablet (9 sources) Opioid Agonist Start: 02-06-2022 acetaminophen-hydr ocodone 325 mg-5 mg oral tablet Refill(s) 0 Start Date: 02/06/22 Status: Ordered HYDROcodone-acet aminophen ([place]) 5-325 MG tablet 1 tablet 3 (three) times a day as needed for severe pain. Active take 1 tablet by vandana twice daily as needed [place] 5-325 MG 1 tablet as needed Orally [...] complication, with long-term current use of insulin ([facility]) Chew 1 tablet (81 mg) Daily 90 [...] every week ergocalciferol (Vitamin D2) 1.25 MG (37734 UT) capsule Indications: Vitamin D deficiency, unspecified TAKE 1 CAPSULE BY MOUTH ONE TIME PER WEEK 12 capsule 1 04/06/2024 Active take 1 capsule by mouth every we ek ergocalciferol (Vitamin D-2) 1.25 MG (40692 UT) capsule Take 1.25 mg by mouth [...] 02-06-2022 Chronic Other aftercare (1 source) Other jail (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 therapy; Translations: [OTH CUSTODIAL CURRENT DRUG THERAPY] Onset: 3 Episodic Other aftercare (1 source) shelter (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; Translations: [MECHANIC CHIEF CURRENT USE OF ASPIRIN] Onset: 3 Episodic Other aftercare (1 source) shelter (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; Translations: [MECHANIC CHIEF CURRENT USE OF INSULIN] Onset: 3 Episodic [...] ocumentation in Social History. Unclassified (1 source) CUSTODIAL INJECT NONINSULN ANTIDIAB; Translations: [MECHANIC CHIEF INJECT NONINSULN ANTIDIAB] Onset: 3 Unclassified (3 [...] Range Facility Office Visiton 11-14-2023 Follow-up visit [id number] Mitzi Macias 1970 F Date Provider Department Center 11/14/2023 BHARAT NICOLE [facility] Family History Problem Relation Age of Onset Heart attack Paternal Grandmother Family Status - Relation Status Age at Paternal Grandmother Level of Service:89325 HI OFFICE/OUTPATIENT NEW LOW MDM 30 MINUTES Normal [facility] CBC AUTO DIFFon 12-06-2022 BASO # 0.0 103/ul Normal 0.0-0.1 [facility] Comment on above: Performed By: #### C BC #### [facility] [address] [place] [address] Dr. Ashlie Hills Basophils/100 WBC (Bld) 0.1 % Critically low 0.2-2.0 [facility] Comment on above: Performed By: #### C BC #### [facility] [address] [place] [address] Dr. Ashlie Hills EO # 0.0 103/ul Normal 0.0-0.7 [facility] Comment on above: Performed By: #### C BC #### [facility] [address] [address] [address] Ashlie Hills Eosinophils/100 WBC (Bld) 0.0 % Critically low 0.9-7.0 [facility] Comment on above: Performed By: #### C BC #### [facility] [address] [place] [address] Dr. Ashlie Hills Erythrocyte distribution width (RBC) [Ratio] 14.9 % Normal 11.0-15.0 [facility] Comment on above: Performed By: #### C BC #### [facility] [address] [place] [address] Dr. Ashlie Hills Hematocrit (Bld) [Volume fraction] 46.2 % Normal 36.0-48.0 [facility] Comment on above: Performed By: #### C BC #### [facility] [address] [place] [address] Dr. Ashlie Hills Hemoglobin (Bld) [Mass/Vol] 14.7 g/dL Normal 12.0-16.0 [facility] Comment on above: Performed By: #### C BC #### [facility] [address] [place] [address] Dr. Ashlie Hills IG # 0.06 10e3/ul Critically high 0.00-0.03 [facility] [place] Comment on above: Performed By: #### C BC #### [facility] [address] [place] [address] Dr. Ashlie Hills IG % 0.4 % Normal 0.0-0.5 [facility] Comment on above: Performed By: #### C BC #### [facility] [address] [place] [address] Dr. Ashlie Hills LYMPH # 1.3 103/ul Normal 1.2-3.8 [facility] Comment on above: Performed By: #### C BC #### [facility] [address] [place] [address] Dr. Ashlie Hills Lymphocytes/100 WBC (Bld) 9.4 % Critically low 20.5-60.0 [facility] Comment on above: Performed By: #### C BC #### [facility] [address] [place] [address] Dr. Ashlie Hills MANUAL DIFF REQ NO Normal [facility] Comment on above: Performed By: #### C BC #### [facility] [address] [place] [address] Dr. Ashlie Hills MCH (RBC) [Entitic mass] 28.4 pg Normal 26.7-34.0 [facility] Comment on above: Performed By: #### C BC #### [facility] [address] [place] [address] Dr. Ashlie Hills MCHC (RBC) [Mass/Vol] 31.8 g/dL Normal 29.9-35.2 [facility] Comment on above: Performed By: #### C BC #### [facility] [address] [place] [address] Dr. Ashlie Hills MCV (RBC) [Entitic vol] 89.4 fL Normal 81.0-99.0 [facility] Comment on above: Performed By: #### C BC #### [facility] [address] [place] [address] Dr. Ashlie Hills MONO # 0.5 103/ul Normal 0.3-0.8 [facility] Comment on above: Performed By: #### C BC #### [facility] [address] [place] [address] Dr. Ashlie Hills Monocytes/100 WBC (Bld) 3.4 % Normal 1.7-12.0 [facility] Comment on above: Performed By: #### C BC #### [facility] [address] [place] [address] Dr. Ashlie Hills NEUT # 11.8 103/ul Critically high 1.4-6.5 [facility] Comment on above: Performed By: #### C BC #### [facility] [address] [place] [address] Dr. Ashlie Hills Neutrophils/100 WBC (Bld) 86.7 % Critically high 43.0-75.0 [facility] Comment on above: Performed By: #### C BC #### [facility] [address] [place] [address] Dr. Ashlie Hills Platelet mean volume (Bld) [Entitic vol] 12.6 fL Normal 9.5-13.5 [facility] Comment on above: Performed By: #### C BC #### [facility] [address] [place] [address] Dr. Ashlie Hills PLT 133 103/ul Critically low 150-450 [place] Comment on above: Performed By: #### C BC #### [facility] [address] [place] [address] Dr. Ashlie Hills RBC 5.17 106/ul Normal 4.20-5.40 [facility] Comment on above: Performed By: #### C BC #### [facility] [address] [address] [address] Ashlie Hills WBC 13.6 103/ul Critically high 4.0-11.0 [facility] Comment on above: Performed By: #### C BC #### [facility] [address] [place] [address] Dr. Ashlie Hills MAGNESIUMon 12-06-2022 Magnesium [Mass/Vol] 2.2 mg/dL Normal 1.8-2.4 [facility] Comment on above: Performed By: #### I NFLUAB #### [facility] [address] [place] [address] Dr. Ashlie Hills POINT OF CARE GLUCOSEon 11-08 Glucose [Mass/Vol] 340 mg/dL Critically high 74-106 [facility] Comment on above: Performed By: #### P OCGLUC #### [facility] [address] [place] [address] Dr. Ashlie Hills Glucose [Mass/Vol] 276 mg/dL Critically high 74-106 [facility] Comment on above: Performed By: #### C BC #### [facility] [address] [place] [address] Dr. Ashlie Hills Glucose [Mass/Vol] 333 mg/dL Critically high -106 [facility] Comment on above: Performed By: #### C BC #### [facility] [address] [place] [address] Dr. Ashlie Hills PROF CHEM 8 (BAS METB)on Anion gap [Moles/Vol] 10.9 mmol/L Normal [facility] Comment on above: Performed By: #### I NFLUAB #### [facility] [address] [address] [address] Ashlie Hills Calcium [Mass/Vol] 9.3 mg/dL Normal 8.5-10.1 [facility] Comment on above: Performed By: #### I NFLUAB #### [facility] [address] [address] [address] Ashlie Hills Chloride [Moles/Vol] 103 mmol/L Normal 98-107 [facility] Comment on above: Performed By: #### I NFLUAB #### [facility] [address] [address] [address] Ashlie Hills CO2 [Moles/Vol] 31.2 mmol/L Normal 21.0-32.0 [facility] Comment on above: Performed By: #### I NFLUAB #### [facility] [address] [place] [address] Dr. Ashlie Hills Creatinine [Mass/Vol] 0.96 mg/dL Normal 0.55-1.02 [facility] Comment on above: Performed By: #### I NFLUAB #### [facility] [address] [address] [address] Ashlie Hills EGFR-AF COLOMBIAN >60 Normal >=60 [facility] Comment on above: Performed By: #### I NFLUAB #### [facility] [address] [place] [address] Dr. Ashlie Hills EGFR-NON AF COLOMBIAN >60 Normal >=60 [facility] Comment on above: Performed By: #### I NFLUAB #### [facility] [address] [address] [address] Ashlie Hills Glucose [Mass/Vol] 288 mg/dL Critically high 74-106 [facility] Comment on above: Performed By: #### I NFLUAB #### [facility] [address] [address] [address] Ashlie Hills Potassium [Moles/Vol] 5.1 mmol/L Normal 3.5-5.1 [facility] Comment on above: Performed By: #### I NFLUAB #### [facility] [address] [place] [address] Dr. Ashlie Hills Sodium [Moles/Vol] 140 mmol/L Normal 136-145 [facility] Comment on above: Performed By: #### I NFLUAB #### [facility] [address] [place] [address] Dr. Ashlie Hills Urea nitrogen [Mass/Vol] 30.0 mg/dL Critically high 7.0-18.0 [facility] Comment on above: Performed By: #### I NFLUAB #### [facility] [address] [place] [address] Dr. Ashlie Hills Urea nitrogen/Creatinine [Mass ratio] 31.2 mg/mg Normal [facility] Comment on above: Performed By: #### I NFLUAB #### [facility] [address] [place] [address] Dr. Ashlie Hills CBC AUTO DIFFon 12-05-2022 BASO # 0.0 103/ul Normal 0.0-0.1 [facility] Comment on above: Performed By: #### C BC #### [facility] [address] [place] [address] Dr. Ashlie Hills Basophils/100 WBC (Bld) 0.4 % Normal 0.2-2.0 [facility] Comment on above: Performed By: #### C BC #### [facility] [address] [place] [address] Dr. Ashlie Hills EO # 0.0 103/ul Normal 0.0-0.7 [facility] Comment on above: Performed By: #### C BC #### [facility] [address] [place] [address] Dr. Ashlie Hills Eosinophils/100 WBC (Bld) 0.0 % Critically low 0.9-7.0 [facility] Comment on above: Performed By: #### C BC #### [facility] [address] [place] [address] Dr. Ashlie Hills Erythrocyte distribution width (RBC) [Ratio] 14.8 % Normal 11.0-15.0 [facility] Comment on above: Performed By: #### C BC #### [facility] [address] [address] [address] Ashlie Hills Hematocrit (Bld) [Volume fraction] 49.9 % Critically high 36.0-48.0 [facility] Comment on above: Performed By: #### C BC #### [facility] [address] [address] [address] Ashlie Hills Hemoglobin (Bld) [Mass/Vol] 15.7 g/dL Normal 12.0-16.0 [facility] Comment on above: Performed By: #### C BC #### [facility] [address] [address] [address] Ashlie Hills IG # 0.04 10e3/ul Critically high 0.00-0.03 [facility] [place] Comment on above: Performed By: #### C BC #### [facility] [address] [place] [address] Dr. Ashlie Hills IG % 0.5 % Normal 0.0-0.5 [facility] Comment on above: Performed By: #### C BC #### [facility] [address] [place] [address] Dr. Ashlie Hills LYMPH # 1.1 103/ul Critically low 1.2-3.8 [place] Comment on above: Performed By: #### C BC #### [facility] [address] [place] [address] Dr. Ashlie Hills Lymphocytes/100 WBC (Bld) 12.7 % Critically low 20.5-60.0 [facility] Comment on above: Performed By: #### C BC #### [facility] [address] [place] [address] Dr. Ashlie Hills MANUAL DIFF REQ NO Normal [facility] Comment on above: Performed By: #### C BC #### [facility] [address] [place] [address] Dr. Ashlie Hills MCH (RBC) [Entitic mass] 28.1 pg Normal 26.7-34.0 [facility] Comment on above: Performed By: #### C BC #### [facility] [address] [place], [place] [id number] Dr. Ashlie Hills MCHC (RBC) [Mass/Vol] 31.5 g/dL Normal 29.9-35.2 [facility] Comment on above: Performed By: #### C BC #### [facility] [address] [place] [address] Dr. Ashlie Hills MCV (RBC) [Entitic vol] 89.3 fL Normal 81.0-99.0 [facility] Comment on above: Performed By: #### C BC #### [facility] [address] [place] [address] Dr. Ashlie Hills MONO # 0.1 103/ul Critically low 0.3-0.8 [place] Comment on above: Performed By: #### C BC #### [facility] [address] [place] [address] Dr. Ashlie Hills Monocytes/100 WBC (Bld) 1.3 % Critically low 1.7-12.0 [facility] Comment on above: Performed By: #### C BC #### [facility] [address] [place] [address] Dr. Ashlie Hills NEUT # 7.2 103/ul Critically high 1.4-6.5 [facility] Comment on above: Performed By: #### C BC #### [facility] [address] [place] [address] Dr. Ashlie Hills Neutrophils/100 WBC (Bld) 85.1 % Critically high 43.0-75.0 [facility] Comment on above: Performed By: #### C BC #### [facility] [address] [place] [address] Dr. Ashlie Hills Platelet mean volume (Bld) [Entitic vol] 12.2 fL Normal 9.5-13.5 [facility] Comment on above: Performed By: #### C BC #### [facility] [address] [place] [address] Dr. Ashlie Hills PLT 116 103/ul Critically low 150-450 [facility] Comment on above: Performed By: #### C BC #### [facility] [address] [place], [place] [address] Dr. Ashlie Hills RBC 5.59 106/ul Critically high 4.20-5.40 [facility] Comment on above: Performed By: #### C BC #### [facility] [address] [address] [address] Ashlie Hills WBC 8.5 103/ul Normal 4.0-11.0 [facility] Comment on above: Performed By: #### C BC #### [facility] [address] [id number] [address] Ashlie Hills CTA CHEST WO W [...] HATTIE GOFF Date: 2022-12-05 01:52 Normal [facility] MAGNESIUMon 12-05-2022 Magnesium [Mass/Vol] 2.1 mg/dL Normal 1.8-2.4 [facility] Comment on above: Performed By: #### P OCGLUC #### [facility] [address] [address] [address] Ashlie Hills POINT OF CARE GLUCOSEon 11-08 Glucose [Mass/Vol] 293 mg/dL Critically high -106 [facility] Comment on above: Performed By: #### P OCGLUC #### [facility] [address] [address] [address] Ashlie Hills Glucose [Mass/Vol] 269 mg/dL Critically high [facility]106 [facility] Comment on above: Performed By: #### P OCGLUC #### [facility] [address] [place] [address] Dr. Ashlie Hills Glucose [Mass/Vol] 223 mg/dL Critically high [facility]106 [facility] Comment on above: Performed By: #### C VDAGS #### [facility] [address] [address] [address] Ashlie Hills PROF CHEM 8 (BAS METB)on Anion gap [Moles/Vol] 11.6 mmol/L Normal [facility] Comment on above: Performed By: #### P OCGLUC #### [facility] [address] [place] [address] Dr. Ashlie Hills Calcium [Mass/Vol] 9.2 mg/dL Normal 8.5-10.1 [facility] Comment on above: Performed By: #### P OCGLUC #### [facility] [address] [address] [address] Ashlie Hills Chloride [Moles/Vol] 102 mmol/L Normal 98-107 [facility] Comment on above: Performed By: #### P OCGLUC #### [facility] [address] [place] [address] Dr. Ashlie Hills CO2 [Moles/Vol] 28.7 mmol/L Normal 21.0-32.0 [facility] Comment on above: Performed By: #### P OCGLUC #### [facility] [address] [address] [address] Ashlie Hills Creatinine [Mass/Vol] 1.04 mg/dL Critically high 0.55-1.02 [facility] Comment on above: Performed By: #### P OCGLUC #### [facility] [address] [address] [address] Ashlie Hills EGFR-AF COLOMBIAN >60 Normal >=60 [facility] Comment on above: Performed By: #### P OCGLUC #### [facility] [address] [address] [address] Ashlie Hills EGFR-NON AF COLOMBIAN 56 mL/min/1.73m2 Critically low >=60 [facility] Comment on above: Performed By: #### P OCGLUC #### [facility] [address] [address] [address] Ashlie Hills Glucose [Mass/Vol] 231 mg/dL Critically high 74-106 T [facility] Comment on above: Performed By: #### P OCGLUC #### [facility] [address] [address] [address] Ashlie Hills Potassium [Moles/Vol] 4.3 mmol/L Normal 3.5-5.1 [facility] Comment on above: Performed By: #### P OCGLUC #### [facility] [address] [address] [address] Ashlie Hills Sodium [Moles/Vol] 138 mmol/L Normal 136-145 [facility] Comment on above: Performed By: #### P OCGLUC #### [facility] [address] [address] [address] Ashlie Hills Urea nitrogen [Mass/Vol] 17.0 mg/dL Normal 7.0-18.0 [facility] Comment on above: Performed By: #### P OCGLUC #### [facility] [address] [address] [address] Ashlie Hills Urea nitrogen/Creatinine [Mass ratio] 16.3 mg/mg Normal [facility] Comment on above: Performed By: #### P OCGLUC #### [facility] [address] [place] [address] Dr. Ashlie Hills RESPIRATORY PANEL PLUSon Adenovirus Not detected Normal NOT DETECTED [facility] Comment on above: Performed By: #### C VDAGS #### [facility] [address] [place] [address] Dr. Ashlie Shaffer. Parapertusis Not detected Normal NOT DETECTED [facility] Comment on above: Performed By: #### C VDAGS #### [facility] [address] [place] [address] Dr. Ashlie Shaffer. Pertussis Not detected Normal NOT DETECTED [facility] Comment on above: Performed By: #### C VDAGS #### [facility] [address] [place] [address] Dr. Ashlie Hills Chlamydia Pneumoniae Not detected Normal NOT DETECTED The [facility] Comment on above: Performed By: #### C VDAGS #### [facility] [address] [place] [address] Dr. Ashlie Hills Coronavirus 229E Not detected Normal NOT DETECTED [facility] Comment on above: Performed By: #### C VDAGS #### [facility] [address] [place] [address] Dr. Ashlie Hills Coronavirus HKU1 Not detected Normal NOT DETECTED [facility] Comment on above: Performed By: #### C VDAGS #### [facility] [address] [place] [address] Dr. Ashlie Hills Coronavirus NL63 Not detected Normal NOT DETECTED The [facility] Comment on above: Performed By: #### C VDAGS #### [facility] [address] [place] [address] Dr. Ashlie Hills Coronavirus OC43 Not detected Normal NOT DETECTED [facility] Comment on above: Performed By: #### C VDAGS #### [facility] [address] [place] [address] Dr. Ashlie Hills Influenza A H1 Not detected Normal NOT DETECTED [facility] Comment on above: Performed By: #### C VDAGS #### [facility] [address] [place] [address] Dr. Ashlie Hills Influenza A H1 2009 Not detected Normal NOT DETECTED [facility] Comment on above: Performed By: #### C VDAGS #### [facility] [address] [address] [address] Ashlie Hills Influenza A H3 Not detected Normal NOT DETECTED [facility] Comment on above: Performed By: #### C VDAGS #### [facility] [address] [address] [address] Ashlie Hills Influenza B Not detected Normal NOT DETECTED [facility] Comment on above: Performed By: #### C VDAGS #### [facility] [address] [address] [address] Ashlie Hlils Metapneumovirus Not detected Normal NOT DETECTED [facility] Comment on above: Performed By: #### C VDAGS #### [facility] [address] [address] [address] Ashlie Hills Mycoplas. Pneumoniae Not detected Normal NOT DETECTED [facility] Comment on above: Performed By: #### C VDAGS #### [facility] [address] [address] [address] Ashlie Hills Parainfluenza 1 Not detected Normal NOT DETECTED [facility] Comment on above: Performed By: #### C VDAGS #### [facility] [address] [address] [address] Ashlie Hills Parainfluenza 2 Not detected Normal NOT DETECTED [facility] Comment on above: Performed By: #### C VDAGS #### [facility] [address] [address] [address] Ashlie Hills Parainfluenza 3 Detected Abnormal NOT DETECTED [facility] Comment on above: Performed By: #### C VDAGS #### [facility] [address] [address] [address] Ashlie Hills Parainfluenza 4 Not detected Normal NOT DETECTED [facility] Comment on above: Performed By: #### C VDAGS #### [facility] [address] [address] [address] Ashlie Hills Rhino/Enterovirus Not detected Normal NOT DETECTED [facility] Comment on above: Performed By: #### C VDAGS #### [facility] [address] [place] [address] Dr. Ashlie Hills RP2 Header 1 RESPIRATORY PANEL: VIRUSES Normal [facility] Comment on above: Performed By: #### C VDAGS #### [facility] [address] [place] [address] Dr. Ashlie Hills RP2 Header 2 RESPIRATORY PANEL: BACTERIA Normal [facility] Comment on above: Performed By: #### C VDAGS #### [facility] [address] [place] [address] Dr. Ashlie Hills RSV Not detected Normal NOT DETECTED [facility] Comment on above: Performed By: #### C VDAGS #### [facility] [address] [place] [address] Dr. Ashlie Hills SARS-CoV-2 (COVID-19) RNA MADDY+probe Ql (Unsp spec) Not detected Normal NOT DETECTED [facility] Comment on above: Performed By: #### C VDAGS #### [facility] [address] [place] [address] Dr. Ashlie Hills XR CHEST 1 Von [...] by: MARYANNE POWER Date: 2022-12-04 22:23 Normal [facility] BLOOD GASES BTYon 12-04-2022 02 MODE ROOM AIR Normal The [facility] Comment on above: Performed By: #### C BC #### [facility] [address] [place] [address] Dr. Ashlie Hills ALLENS TEST Positive Normal [facility] Comment on above: Performed By: #### C BC #### [facility] [address] [address] [address] Ashlie Hills Base excess Calc (Bld) [Moles/Vol] 5.4 mmol/L Critically high -2.0-2.0 [facility] Comment on above: Performed By: #### C BC #### [facility] [address] [address] [address] Ashlie Hills BIPAP PRESSURE Normal [place] Comment on above: Performed By: #### C BC #### [facility] [address] [address] [address] Ashlie Hills CPAP [facility] Comment on above: Performed By: #### C BC #### [facility] [address] [place] [address] Dr. Ashlie Hills FIO2 [facility] Comment on above: Performed By: #### C BC #### [facility] [address] [place] [address] Dr. Ashlie Hills HCO3 (Bld) [Moles/Vol] 30.8 mmol/L Critically high 22.0-26.0 [facility] Comment on above: Performed By: #### C BC #### [facility] [address] [place] [address] Dr. Ashlie Hills LPM [facility] Comment on above: Performed By: #### C BC #### [facility] [address] [place] [address] Dr. Ashlie Hills MINUTE VOLUME Normal [facility] Comment on above: Performed By: #### C BC #### [facility] [address] [place] [address] Dr. Ashlie Hills Oxygen (Bld) [Partial pressure] 46.3 mm[Hg] Critically low 80.0-100.0 [facility] Comment on above: Performed By: #### C BC #### [facility] [address] [place] [address] Dr. Ashlie Hills Oxygen saturation in Blood 83.9 % Critically low 95.0-100.0 [facility] Comment on above: Performed By: #### C BC #### [facility] [address] [address] [address] Ashlie Hills PCO2 54.2 mmHg Critically high 35.0-45.0 [facility] Comment on above: Performed By: #### C BC #### [facility] [address] [place] [address] Dr. Ashlie Hills PEEP [facility] Comment on above: Performed By: #### C BC #### [facility] [address] [address] [address] Ashlie Hills pH (Bld) 7.363 [pH] Normal 7.350-7.450 [facility] Comment on above: Performed By: #### C BC #### [facility] [address] [place] [address] Dr. Ashlie Hills [facility] Comment on above: Performed By: #### C BC #### [facility] [address] [place] [address] Dr. Ashlie Hills [facility] Comment on above: Performed By: #### C BC #### [facility] [address] [place] [address] Dr. Ashlie Hills PUNCTURE SITE LR [facility] Comment on above: Performed By: #### C BC #### [facility] [address] [place] [address] Dr. Ashlie Hills RATE [facility] Comment on above: Performed By: #### C BC #### [facility] [address] [place] [address] Dr. Ashlie Hills VENT MODE [facility] Comment on above: Performed By: #### C BC #### [facility] [address] [place] [address] Dr. Ashlei Hills [facility] Comment on above: Performed By: #### C BC #### [facility] [address] [place] [address] Dr. Ashlie Hills BNPon 12-04-2022 Natriuretic peptide B (Bld) [Mass/Vol] 76.0 pg/mL Normal <=900.0 [facility] Comment on above: Performed By: #### P OCGLUC #### [facility] [address] [address] [address] Ashlie Hills CBC AUTO DIFFon 12-04-2022 BASO # 0.1 103/ul Normal 0.0-0.1 [facility] Comment on above: Performed By: #### C BC #### [facility] [address] [address] [address] Ashlie Hills Basophils/100 WBC (Bld) 0.6 % Normal 0.2-2.0 [facility] Comment on above: Performed By: #### C BC #### [facility] [address] [address] [address] Ashlie Hills EO # 0.2 103/ul Normal 0.0-0.7 [facility] Comment on above: Performed By: #### C BC #### [facility] [address] [address] [address] Ashlie Hills Eosinophils/100 WBC (Bld) 1.9 % Normal 0.9-7.0 [facility] Comment on above: Performed By: #### C BC #### [facility] [address] [address] [address] Ashlie Hills Erythrocyte distribution width (RBC) [Ratio] 15.0 % Normal 11.0-15.0 [facility] Comment on above: Performed By: #### C BC #### [facility] [address] [address] [address] Ashlie Hills Hematocrit (Bld) [Volume fraction] 49.1 % Critically high 36.0-48.0 [facility] Comment on above: Performed By: #### C BC #### [facility] [address] [address] [address] Ashlie Hills Hemoglobin (Bld) [Mass/Vol] 15.6 g/dL Normal 12.0-16.0 [facility] Comment on above: Performed By: #### C BC #### [facility] [address] [address] [address] Ashlie Hills IG # 0.02 10e3/ul Normal 0.00-0.03 [facility] Comment on above: Performed By: #### C BC #### [facility] [address] [place] [address] Dr. Ashlie Hills IG % 0.2 % Normal 0.0-0.5 [facility] Comment on above: Performed By: #### C BC #### [facility] [address] [place] [address] Dr. Ashlie Hills LYMPH # 2.8 103/ul Normal 1.2-3.8 [facility] Comment on above: Performed By: #### C BC #### [facility] [address] [place] [address] Dr. Ashlie Hills Lymphocytes/100 WBC (Bld) 29.9 % Normal 20.5-60.0 [facility] Comment on above: Performed By: #### C BC #### [facility] [address] [place] [address] Dr. Ashlie Hills MANUAL DIFF REQ NO Normal [facility] Comment on above: Performed By: #### C BC #### [facility] [address] [place] [address] Dr. Ashlie Hills MCH (RBC) [Entitic mass] 28.5 pg Normal 26.7-34.0 [facility] Comment on above: Performed By: #### C BC #### [facility] [address] [place] [address] Dr. Ashlie Hills MCHC (RBC) [Mass/Vol] 31.8 g/dL Normal 29.9-35.2 [facility] Comment on above: Performed By: #### C BC #### [facility] [address] [place] [address] Dr. Ashlie Hills MCV (RBC) [Entitic vol] 89.8 fL Normal 81.0-99.0 [facility] Comment on above: Performed By: #### C BC #### [facility] [address] [place] [address] Dr. Ashlie Hills MONO # 1.0 103/ul Critically high 0.3-0.8 [facility] Comment on above: Performed By: #### C BC #### [facility] [address] [address] [address] Ashlie Hills Monocytes/100 WBC (Bld) 10.6 % Normal 1.7-12.0 [facility] Comment on above: Performed By: #### C BC #### [facility] [address] [address] [address] Ashlie Hills NEUT # 5.3 103/ul Normal 1.4-6.5 [facility] Comment on above: Performed By: #### C BC #### [facility] [address] [place] [address] Dr. Ashlie Hills Neutrophils/100 WBC (Bld) 56.8 % Normal 43.0-75.0 [facility] Comment on above: Performed By: #### C BC #### [facility] [address] [place] [address] Dr. Ashlie Hills Platelet mean volume (Bld) [Entitic vol] 12.5 fL Normal 9.5-13.5 [facility] Comment on above: Performed By: #### C BC #### [facility] [address] [place] [address] Dr. Ashlie Hills PLT 109 103/ul Critically low 150-450 [place] Comment on above: Performed By: #### C BC #### [facility] [address] [place] [address] Dr. Ashlie Hills RBC 5.47 106/ul Critically high 4.20-5.40 [facility] Comment on above: Performed By: #### C BC #### [facility] [address] [place] [address] Dr. Ashlie Hills WBC 9.4 103/ul Normal 4.0-11.0 [facility] Comment on above: Performed By: #### C BC #### [facility] [address] [place] [address] Dr. Ashlie Hills PROF 14(COMP METB)on 023 Albumin [Mass/Vol] 2.9 g/dL Critically low 3.4-5.0 [facility] Comment on above: Performed By: #### C BC #### [facility] [address] [place] [address] Dr. Ashlie Hills Albumin/Globulin [Mass ratio] 0.6 {ratio} Normal [facility] Comment on above: Performed By: #### C BC #### [facility] [address] [place] [address] Dr. Ashlie Hills ALP [Catalytic activity/Vol] 64 U/L Normal 46-116 [facility] Comment on above: Performed By: #### C BC #### [facility] [address] [place] [address] Dr. Ashlie Hills ALT [Catalytic activity/Vol] 16 U/L Normal 14-59 [facility] Comment on above: Performed By: #### C BC #### [facility] [address] [place] [address] Dr. Ashlie Hills Anion gap [Moles/Vol] 9.6 mmol/L Normal [facility] Comment on above: Performed By: #### C BC #### [facility] [address] [place] [address] Dr. Ashlie Hills AST [Catalytic activity/Vol] 16 U/L Normal 15-37 [facility] Comment on above: Performed By: #### C BC #### [facility] [address] [place] [address] Dr. Ashlie Hills Bilirubin [Mass/Vol] 0.5 mg/dL Normal 0.2-1.0 [facility] Comment on above: Performed By: #### C BC #### [facility] [address] [place] [address] Dr. Ashlie Hills Calcium [Mass/Vol] 8.7 mg/dL Normal 8.5-10.1 [facility] Comment on above: Performed By: #### C BC #### [facility] [address] [place] [address] Dr. Ashlie Hills Chloride [Moles/Vol] 103 mmol/L Normal 98-107 [facility] Comment on above: Performed By: #### C BC #### [facility] [address] [place] [address] Dr. Ashlie Hills CO2 [Moles/Vol] 30.7 mmol/L Normal 21.0-32.0 [facility] Comment on above: Performed By: #### C BC #### [facility] [address] [place] [address] Dr. Ashlie Hills Creatinine [Mass/Vol] 0.96 mg/dL Normal 0.55-1.02 [facility] Comment on above: Performed By: #### C BC #### [facility] [address] [place] [address] Dr. Ashlie Hills EGFR-AF COLOMBIAN >60 Normal >=60 [facility] Comment on above: Performed By: #### C BC #### [facility] [address] [place] [address] Dr. Ashlie Hills EGFR-NON AF COLOMBIAN >60 Normal >=60 [facility] Comment on above: Performed By: #### C BC #### [facility] [address] [place] [address] Dr. Ashlie Hills Globulin (S) [Mass/Vol] 4.7 g/dL Normal [facility] Comment on above: Performed By: #### C BC #### [facility] [address] [place] [address] Dr. Ashlie Hills Glucose [Mass/Vol] 170 mg/dL Critically high 74-106 T [facility] Comment on above: Performed By: #### C BC #### [facility] [address] [place] [address] Dr. Ashlie Hills Potassium [Moles/Vol] 4.3 mmol/L Normal 3.5-5.1 [facility] Comment on above: Performed By: #### C BC #### [facility] [address] [place] [address] Dr. Ashlie Hills Protein [Mass/Vol] 7.6 g/dL Normal 6.4-8.2 [facility] Comment on above: Performed By: #### C BC #### [facility] [address] [place] [address] Dr. Ashlie Hills Sodium [Moles/Vol] 139 mmol/L Normal 136-145 [facility] Comment on above: Performed By: #### C BC #### [facility] [address] [address] [address] Ashlie Hills Urea nitrogen [Mass/Vol] 16.0 mg/dL Normal 7.0-18.0 [facility] Comment on above: Performed By: #### C BC #### [facility] [address] [address] [address] Ashlie Hills Urea nitrogen/Creatinine [Mass ratio] 16.7 mg/mg Normal [facility] Comment on above: Performed By: #### C BC #### [facility] [address] [address] [address] Ashlie Hills SYMPTOMATIC COVID-19 ANTIGEN on 12-04-2022 EUA Statement SEE BELOW Normal [facility] Comment on above: Result Comment: This [...] VDAGS #### [facility] [address] [place], [place] [id number] Dr. Ashlie Hills SARS-CoV-2 (COVID-19) RNA MADDY+probe Ql (Unsp spec) Negative Normal NEGATIVE [facility] Comment on above: Performed By: #### C VDAGS #### [facility] [address] [place] [address] Dr. Ashlie Hills TROPONIN, HIGH SENSITIVITYon 12-04-2022 HSTROP 8.9 pg/mL Normal 4.0-51.3 [facility] Comment on above: Result Comment: CUT- OFF POINTS HAVE BEEN ESTABLISHED BASED ON THE FOURTH UNIVERSAL DEFINITIONS OF MYOCARDIAL INFARCTION. THE UPPER REFERENCE LIMIT (URL) OF TROPONIN, DEFINED THE 99TH PERCENTILE OF cTnI DISTRIBUTION IN A REFERENCE POPULATION, HAS BEEN CONFIRMED THE DECISION THRESHOLD FOR RI DIAGNOSIS. Performed By: #### P OCGLUC #### [facility] [address] [place] [address] Dr. Ashlie Hills MICROALBUMIN, RAND URon 11-06 mALB 35.8 mg/dL Critically high <=30.0 [facility] Comment on above: Performed By: #### C VDAGS #### [facility] [address] [place] [address] Dr. Ashlie Hills UA RANDOM W/MICROSCOPICon BACTERIA NONE SEEN Normal NONE SEEN [facility] Comment on above: Performed By: #### C VDAGS #### [facility] [address] [place] [address] Dr. Ashlie Hills Bilirubin Ql (U) Negative Normal NEGATIVE [facility] Comment on above: Performed By: #### C VDAGS #### [facility] [address] [place] [address] Dr. Ashlie Hills CAST SEEN Abnormal NONE SEEN [facility] Comment on above: Performed By: #### C VDAGS #### [facility] [facility] [address] [place] [address] Dr. Ashlie Hills Clarity (U) CLEAR Normal CLEAR [facility] Comment on above: Performed By: #### C VDAGS #### [facility] [address] [place] [address] Dr. Ashlie Hills Color (U) YELLOW Normal YELLOW [facility] Comment on above: Performed By: #### C VDAGS #### [facility] [address] [place] [address] Dr. Ashlie Hills Crystals LM Nom (Urine sed) NONE SEEN Normal NONE SEEN [facility] Comment on above: Performed By: #### C VDAGS #### [facility] [address] [place] [address] Dr. Ashlie Hills Epithelial cells LM Ql (Urine sed) MODERATE Abnormal NONE SEEN /RARE [facility] Comment on above: Performed By: #### C VDAGS #### [facility] [address] [place] [address] Dr. Ashlie Hills Glucose Ql (U) Negative Normal NEGATIVE [place] Comment on above: Performed By: #### C VDAGS #### [facility] [address] [address] [address] Ashlie Hills Hemoglobin Ql (U) TRACE-INTACT Abnormal NEGATIVE [facility] Comment on above: Performed By: #### C VDAGS #### [facility] [address] [place] [address] Dr. Ashlie Hills Ketones Ql (U) Negative Normal NEGATIVE [place] Comment on above: Performed By: #### C VDAGS #### [facility] [address] [place] [address] Dr. Ashlie Hills LEUKOCYTES Negative Normal NEGATIVE [facility] Comment on above: Performed By: #### C VDAGS #### [facility] [address] [place] [address] Dr. Ashlie Hills MUCOUS NONE SEEN Normal NONE SEEN [facility] Comment on above: Performed By: #### C VDAGS #### [facility] [address] [place] [address] Dr. Ashlie Hills Nitrite Ql (U) Negative Normal NEGATIVE [facility] Comment on above: Performed By: #### C VDAGS #### [facility] [address] [place] [address] Dr. Ashlie Hills pH (U) 5.0 [pH] Normal 5-9 [facility] Comment on above: Performed By: #### C VDAGS #### [facility] [address] [place] [address] Dr. Ashlie Hills RBC 0-2 Normal 0-2 [facility] Comment on above: Performed By: #### C VDAGS #### [facility] [address] [place] [address] Dr. Ashlie Hills SPEC GRAVITY 1.030 Abnormal 1.005-<=1.025 [facility] Comment on above: Performed By: #### C VDAGS #### [facility] [address] [address] [address] Ashlie Hills UA PROTEIN 100 mg/dl Abnormal NEGATIVE/ TRACE [facility] Comment on above: Performed By: #### C VDAGS #### [facility] [address] [place] [address] Dr. Ashlie Hills Urobilinogen Qn (U) 0.2 {Little'U}/dL Normal 0.2 - 1. 0 [facility] Comment on above: Performed By: #### C VDAGS #### [facility] [address] [place] [address] Dr. Ashlie Hills WBC NONE SEEN Normal NONE SEEN [facility] Comment on above: Performed By: #### C VDAGS #### [facility] [address] [place] [address] Dr. Ashlie Hills CBC AUTO DIFFon 11-22-2022 BASO # 0.0 103/ul Normal 0.0-0.1 [facility] Comment on above: Performed By: #### C BC #### [facility] [address] [place] [address] Dr. Ashlie Hills Basophils/100 WBC (Bld) 0.3 % Normal 0.2-2.0 [facility] Comment on above: Performed By: #### C BC #### [facility] [address] [place] [address] Dr. Ashlie Hills EO # 0.4 103/ul Normal 0.0-0.7 [facility] Comment on above: Performed By: #### C BC #### [facility] [address] [place] [address] Dr. Ashlie Hills Eosinophils/100 WBC (Bld) 3.0 % Normal 0.9-7.0 [facility] Comment on above: Performed By: #### C BC #### [facility] [address] [place] [address] Dr. Ashlie Hills Erythrocyte distribution width (RBC) [Ratio] 15.3 % Critically high 11.0-15.0 [facility] Comment on above: Performed By: #### C BC #### [facility] [address] [address] [address] Ashlie Hills Hematocrit (Bld) [Volume fraction] 52.4 % Critically high 36.0-48.0 [facility] Comment on above: Performed By: #### C BC #### [facility] [address] [place] [address] Dr. Ashlie Hills Hemoglobin (Bld) [Mass/Vol] 16.8 g/dL Critically high 12.0-16.0 [facility] Comment on above: Performed By: #### C BC #### [facility] [address] [place] [address] Dr. Ashlie Hills IG # 0.04 10e3/ul Critically high 0.00-0.03 [facility] [place] Comment on above: Performed By: #### C BC #### [facility] [address] [place] [address] Dr. Ashlie Hills IG % 0.3 % Normal 0.0-0.5 [facility] Comment on above: Performed By: #### C BC #### [facility] [address] [place] [address] Dr. Ashlie Hills LYMPH # 4.5 103/ul Critically high 1.2-3.8 [facility] Comment on above: Performed By: #### C BC #### [facility] [address] [place] [address] Dr. Ashlie Hills Lymphocytes/100 WBC (Bld) 33.2 % Normal 20.5-60.0 [facility] Comment on above: Performed By: #### C BC #### [facility] [address] [place] [address] Dr. Ashlie Hills MANUAL DIFF REQ NO Normal [facility] Comment on above: Performed By: #### C BC #### [facility] [address] [place] [address] Dr. Ashlie Hills MCH (RBC) [Entitic mass] 28.0 pg Normal 26.7-34.0 [facility] Comment on above: Performed By: #### C BC #### [facility] [address] [address] [address] Ashlie Hills MCHC (RBC) [Mass/Vol] 32.1 g/dL Normal 29.9-35.2 [facility] Comment on above: Performed By: #### C BC #### [facility] [address] [address] [address] Ashlie Hills MCV (RBC) [Entitic vol] 87.3 fL Normal 81.0-99.0 [facility] Comment on above: Performed By: #### C BC #### [facility] [address] [address] [address] Ashlie Hills MONO # 0.8 103/ul Normal 0.3-0.8 [facility] Comment on above: Performed By: #### C BC #### [facility] [address] [place] [address] Dr. Ashlie Hills Monocytes/100 WBC (Bld) 5.7 % Normal 1.7-12.0 [facility] Comment on above: Performed By: #### C BC #### [facility] [address] [place] [address] Dr. Ashlie Hills NEUT # 7.8 103/ul Critically high 1.4-6.5 [facility] Comment on above: Performed By: #### C BC #### [facility] [address] [place] [address] Dr. Ashlie Hills Neutrophils/100 WBC (Bld) 57.5 % Normal 43.0-75.0 [facility] Comment on above: Performed By: #### C BC #### [facility] [address] [address] [address] Ashlie Hills Platelet mean volume (Bld) [Entitic vol] 12.0 fL Normal 9.5-13.5 [facility] Comment on above: Performed By: #### C BC #### [facility] [address] [place] [address] Dr. Ashlie Hills PLT 152 103/ul Normal 150-450 [facility] Comment on above: Performed By: #### C BC #### [facility] [address] [address] [address] Ashlie Hills RBC 6.00 106/ul Critically high 4.20-5.40 [facility] Comment on above: Performed By: #### C BC #### [facility] [address] [address] [address] Ashlie Hills WBC 13.6 103/ul Critically high 4.0-11.0 [facility] Comment on above: Performed By: #### C BC #### [facility] [address] [place] [address] Dr. Ashlie Hills LIPID PROFILEon 11-22-2022 CHOL-HDL RATIO NORM SEE BELOW Normal [facility] Comment on above: Result Comment: 3.3 - 4.4 LOW RISK 4.4 - 7.1 AVERAGE RISK 7.1 - 11.0 MODERATE RISK >11.0 HIGH RISK Performed By: #### C BC #### [facility] [address] [place] [address] Dr. Ashlie Hills Cholesterol [Mass/Vol] 139 mg/dL Normal <=200 [facility] Comment on above: Performed By: #### C BC #### [facility] [address] [place] [address] Dr. Ashlie Hills Cholesterol in HDL [Mass/Vol] 35 mg/dL Critically low 40-60 [facility] Comment on above: Performed By: #### C BC #### [facility] [address] [place] [address] Dr. Ashlie Hills Cholesterol in LDL [Mass/Vol] 67.4 mg/dL Normal [facility] Comment on above: Performed By: #### C BC #### [facility] [address] [address] [address] Ashlie Hills Cholesterol.total/Ch olesterol in HDL [Mass ratio] 4.0 {ratio} Normal [facility] Comment on above: Performed By: #### C BC #### [facility] [address] [place] [address] Dr. Ashlie Hills HDL NORMAL > or = 60 mg/dl - LOW CARDIOVASCULAR RISK <40 mg/dl - HIGH CARDIOVASCULAR RISK Normal [facility] Comment on above: Performed By: #### C BC #### [facility] [address] [address] [address] Ashlie Hills LDL CALC NORMAL SEE BELOW Normal [facility] Comment on above: Result Comment: <100 mg/dl OPTIMAL 100 - 129 mg/dl NEAR OR ABOVE OPTIMAL 130 - 159 mg/dl BORDERLINE HIGH 160 - 189 mg/dl HIGH >190 mg/dl VERY HIGH Performed By: #### C BC #### [facility] [address] [address] [address] Ashlie Hills Triglyceride [Mass/Vol] 183 mg/dL Critically high <=150 [facility] Comment on above: Performed By: #### C BC #### [facility] [address] [address] [address] Ashlie Hills VLDL CALC 36.6 mg/dL Normal [facility] Comment on above: Performed By: #### C BC #### [facility] [address] [address] [address] 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 FINDINGS: DIAGNOSTIC [...] [facility] PROF 14(COMP METB)on 023 Albumin [Mass/Vol] 3.0 g/dL Critically low 3.4-5.0 Th e [facility] Comment on above: Performed By: #### C BC #### [facility] [address] [place] [address] Dr. Ashlie Hills Albumin/Globulin [Mass ratio] 0.6 {ratio} Normal [facility] Comment on above: Performed By: #### C BC #### [facility] [address] [place] [address] Dr. Ashlie Hills ALP [Catalytic activity/Vol] 68 U/L Normal 46-116 [facility] Comment on above: Performed By: #### C BC #### [facility] [address] [place] [address] Dr. Ashlie Hills ALT [Catalytic activity/Vol] 14 U/L Normal 14-59 [facility] Comment on above: Performed By: #### C BC #### [facility] [address] [place] [address] Dr. Ashlie Hills Anion gap [Moles/Vol] 12.1 mmol/L Normal [facility] Comment on above: Performed By: #### C BC #### [facility] [address] [place] [address] Dr. Ashlie Hills AST [Catalytic activity/Vol] 9 U/L Critically low 15-37 [facility] Comment on above: Performed By: #### C BC #### [facility] [address] [place] [address] Dr. Ashlie Hills Bilirubin [Mass/Vol] 0.4 mg/dL Normal 0.2-1.0 [facility] Comment on above: Performed By: #### C BC #### [facility] [address] [place] [address] Dr. Ashlie Hills Calcium [Mass/Vol] 9.0 mg/dL Normal 8.5-10.1 [facility] Comment on above: Performed By: #### C BC #### [facility] [address] [address] [address] Ashlie Hills Chloride [Moles/Vol] 105 mmol/L Normal 98-107 [facility] Comment on above: Performed By: #### C BC #### [facility] [address] [place] [address] Dr. Ashlie Hills CO2 [Moles/Vol] 30.7 mmol/L Normal 21.0-32.0 [facility] Comment on above: Performed By: #### C BC #### [facility] [address] [place] [address] Dr. Ashlie Hills Creatinine [Mass/Vol] 0.77 mg/dL Normal 0.55-1.02 [facility] Comment on above: Performed By: #### C BC #### [facility] [address] [place] [address] Dr. Ashlie Hills EGFR-AF COLOMBIAN >60 Normal >=60 [facility] Comment on above: Performed By: #### C BC #### [facility] [address] [place] [address] Dr. Ashlie Hills EGFR-NON AF COLOMBIAN >60 Normal >=60 [facility] Comment on above: Performed By: #### C BC #### [facility] [address] [place] [address] Dr. Ashlie Hills Globulin (S) [Mass/Vol] 4.8 g/dL Normal [facility] Comment on above: Performed By: #### C BC #### [facility] [address] [place] [address] Dr. Ashlie Hills Glucose [Mass/Vol] 162 mg/dL Critically high 74-106 [facility] Comment on above: Performed By: #### C BC #### [facility] [address] [address] [address] Ashlie Hills Potassium [Moles/Vol] 3.8 mmol/L Normal 3.5-5.1 [facility] Comment on above: Performed By: #### C BC #### [facility] [address] [address] [address] Ashlie Hills Protein [Mass/Vol] 7.8 g/dL Normal 6.4-8.2 [facility] Comment on above: Performed By: #### C BC #### [facility] [address] [place] [address] Dr. Ashlie Hills Sodium [Moles/Vol] 144 mmol/L Normal 136-145 [facility] Comment on above: Performed By: #### C BC #### [facility] [address] [place] [address] Dr. Ashlie Hills Urea nitrogen [Mass/Vol] 24.0 mg/dL Critically high 7.0-18.0 [facility] Comment on above: Performed By: #### C BC #### [facility] [address] [place] [address] Dr. Ashlie Hills Urea nitrogen/Creatinine [Mass ratio] 31.2 mg/mg Normal [facility] Comment on above: Performed By: #### C BC #### [facility] [address] [place] [address] Dr. Ashlie Hills CBC AUTO DIFFon 10-05-2022 BASO # 0.1 103/ul Normal 0.0-0.1 [facility] Comment on above: Performed By: #### C BC #### [facility] [address] [place] [address] Dr. Ashlie Hills Basophils/100 WBC (Bld) 0.6 % Normal 0.2-2.0 [facility] Comment on above: Performed By: #### C BC #### [facility] [address] [place] [address] Dr. Ashlie Hills EO # 0.3 103/ul Normal 0.0-0.7 [facility] Comment on above: Performed By: #### C BC #### [facility] [address] [address] [address] Ashlie Hills Eosinophils/100 WBC (Bld) 2.1 % Normal 0.9-7.0 [facility] Comment on above: Performed By: #### C BC #### [facility] [address] [place] [address] Dr. Ashlie Hills Erythrocyte distribution width (RBC) [Ratio] 15.9 % Critically high 11.0-15.0 [facility] Comment on above: Performed By: #### C BC #### [facility] [address] [place] [address] Dr. Ashlie Hills Hematocrit (Bld) [Volume fraction] 51.8 % Critically high 36.0-48.0 [facility] Comment on above: Performed By: #### C BC #### [facility] [address] [place] [address] Dr. Ashlie Hills Hemoglobin (Bld) [Mass/Vol] 16.6 g/dL Critically high 12.0-16.0 [facility] Comment on above: Performed By: #### C BC #### [facility] [address] [place] [address] Dr. Ashlie Hills IG # 0.03 10e3/ul Normal 0.00-0.03 [facility] Comment on above: Performed By: #### C BC #### [facility] [address] [place] [address] Dr. Ashlie Hills IG % 0.2 % Normal 0.0-0.5 [facility] Comment on above: Performed By: #### C BC #### [facility] [address] [place] [address] Dr. Ashlie Hills LYMPH # 3.9 103/ul Critically high 1.2-3.8 [facility] Comment on above: Performed By: #### C BC #### [facility] [address] [place] [address] Dr. Ashlie Hills Lymphocytes/100 WBC (Bld) 31.7 % Normal 20.5-60.0 [facility] Comment on above: Performed By: #### C BC #### [facility] [address] [place] [address] Dr. Ashlie Hills MANUAL DIFF REQ NO Normal [facility] Comment on above: Performed By: #### C BC #### [facility] [address] [place] [address] Dr. Ashlie Hills MCH (RBC) [Entitic mass] 27.9 pg Normal 26.7-34.0 [facility] Comment on above: Performed By: #### C BC #### [facility] [address] [place] [address] Dr. Ashlie Hills MCHC (RBC) [Mass/Vol] 32.0 g/dL Normal 29.9-35.2 [facility] Comment on above: Performed By: #### C BC #### [facility] [address] [place] [address] Dr. Ashlie Hills MCV (RBC) [Entitic vol] 87.1 fL Normal 81.0-99.0 [facility] Comment on above: Performed By: #### C BC #### [facility] [address] [place] [address] Dr. Ashlie Hills MONO # 0.7 103/ul Normal 0.3-0.8 [facility] Comment on above: Performed By: #### C BC #### [facility] [address] [place] [address] Dr. Ashlie Hills Monocytes/100 WBC (Bld) 5.8 % Normal 1.7-12.0 [facility] Comment on above: Performed By: #### C BC #### [facility] [address] [place] [address] Dr. Ashlie Hills NEUT # 7.3 103/ul Critically high 1.4-6.5 [facility] Comment on above: Performed By: #### C BC #### [facility] [address] [place] [address] Dr. Ashlie Hills Neutrophils/100 WBC (Bld) 59.6 % Normal 43.0-75.0 [facility] Comment on above: Performed By: #### C BC #### [facility] [address] [place], [place] [address] Dr. Ashlie Hills Platelet mean volume (Bld) [Entitic vol] 11.7 fL Normal 9.5-13.5 [facility] Comment on above: Performed By: #### C BC #### [facility] [address] [address] [address] Ashlie Hills PLT 117 103/ul Critically low 150-450 [place] Comment on above: Performed By: #### C BC #### [facility] [address] [place], [place] [address] Dr. Ashlie Hills RBC 5.95 106/ul Critically high 4.20-5.40 [facility] Comment on above: Performed By: #### C BC #### [facility] [address] [address] [address] Ashlie Hills WBC 12.3 103/ul Critically high 4.0-11.0 [facility] Comment on above: Performed By: #### C BC #### [facility] [address] [address] [address] ABD/PELV W CONon [...] [facility] ER URINE PROFILEon 3 Bilirubin Ql (U) Negative Normal NEGATIVE [facility] Comment on above: Performed By: #### P OCGLUC #### [facility] [address] [address] [address] Ashlie Hills Clarity (U) CLEAR Normal CLEAR [facility] Comment on above: Performed By: #### P OCGLUC #### [facility] [address] [place] [address] Dr. Ashlie Hills Color (U) YELLOW Normal YELLOW [facility] Comment on above: Performed By: #### P OCGLUC #### [facility] [address] [place] [address] Dr. Ashlie HOBBS A micrscopic examination will be performed if indicated. Normal [facility] Comment on above: Performed By: #### P OCGLUC #### [facility] [address] [address] [address] Ashlie Hills Glucose Ql (U) Negative Normal NEGATIVE [facility] Comment on above: Performed By: #### P OCGLUC #### [facility] [address] [place] [address] Dr. Ashlie Hills Hemoglobin Ql (U) Negative Normal NEGATIVE [facility] Comment on above: Performed By: #### P OCGLUC #### [facility] [address] [place] [address] Dr. Ashlie Hills Ketones Ql (U) Negative Normal NEGATIVE [place] Comment on above: Performed By: #### P OCGLUC #### [facility] [address] [address] [address] Ashlie Hills LEUKOCYTES Negative Normal NEGATIVE [facility] Comment on above: Performed By: #### P OCGLUC #### [facility] [address] [place] [address] Dr. Ashlie Hills Nitrite Ql (U) Negative Normal NEGATIVE [facility] Comment on above: Performed By: #### P OCGLUC #### [facility] [address] [address] [address] Ashlie Hills pH (U) 6.0 [pH] Normal 5-9 [facility] Comment on above: Performed By: #### P OCGLUC #### [facility] [address] [address] [address] Ashlie Hills Protein (U) [Mass/Vol] 100 mg/dL Abnormal NEGATIVE/ TRACE [facility] Comment on above: Performed By: #### P OCGLUC #### [facility] [address] [address] [address] Ashlie Hills SPEC GRAVITY 1.010 Normal 1.005-<=1.025 [facility] Comment on above: Performed By: #### P OCGLUC #### [facility] [address] [place] [address] Dr. Ashlie Hills UR MICRO IND INDICATED Normal [facility] Comment on above: Performed By: #### P OCGLUC #### [facility] [address] [address] [address] Ashlie Hills Urobilinogen Qn (U) 1.0 {Little'U}/dL Normal 0.2 - 1. 0 [facility] Comment on above: Performed By: #### P OCGLUC #### [facility] [address] [address] [address] Ashlie Hills LIPASEon 10-05-2022 Lipase [Catalytic activity/Vol] 1771.0 U/L Critically high 73.0-393.0 [facility] Comment on above: Performed By: #### C BC #### [facility] [address] [address] [address] Ashlie Hills PREG HCG QUALon 10-05-2022 , QUAL Negative Normal NEGATIVE [facility] Comment on above: Performed By: #### P OCGLUC #### [facility] [address] [place] [address] Dr. Ashlie Hills PROF 14(COMP METB)on 03-30-2 023 Albumin [Mass/Vol] 3.2 g/dL Critically low 3.4-5.0 Th e [facility] Comment on above: Performed By: #### C BC #### [facility] [address] [place] [address] Dr. Ashlie Hills Albumin/Globulin [Mass ratio] 0.7 {ratio} Normal [facility] Comment on above: Performed By: #### C BC #### [facility] [address] [address] [address] Ashlie Hills ALP [Catalytic activity/Vol] 70 U/L Normal 46-116 [facility] Comment on above: Performed By: #### C BC #### [facility] [address] [place] [address] Dr. Ashlie Hills ALT [Catalytic activity/Vol] 11 U/L Critically low 14-59 [facility] Comment on above: Performed By: #### C BC #### [facility] [address] [place] [address] Dr. Ashlie Hills Anion gap [Moles/Vol] 10.3 mmol/L Normal [facility] Comment on above: Performed By: #### C BC #### [facility] [address] [place] [address] Dr. Ashlie Hills AST [Catalytic activity/Vol] 11 U/L Critically low 15-37 [facility] Comment on above: Performed By: #### C BC #### [facility] [address] [place] [address] Dr. Ashlie Hills Bilirubin [Mass/Vol] 0.9 mg/dL Normal 0.2-1.0 [facility] Comment on above: Performed By: #### C BC #### [facility] [address] [place] [address] Dr. Ashlie Hills Calcium [Mass/Vol] 9.3 mg/dL Normal 8.5-10.1 [facility] Comment on above: Performed By: #### C BC #### [facility] [address] [place] [address] Dr. Ashlie Hills Chloride [Moles/Vol] 105 mmol/L Normal 98-107 [facility] Comment on above: Performed By: #### C BC #### [facility] [address] [address] [address] Ashlie Hills CO2 [Moles/Vol] 30.6 mmol/L Normal 21.0-32.0 [facility] Comment on above: Performed By: #### C BC #### [facility] [address] [address] [address] Ashlie Hills Creatinine [Mass/Vol] 0.62 mg/dL Normal 0.55-1.02 [facility] Comment on above: Performed By: #### C BC #### [facility] [address] [address] [address] Ashlie Hills EGFR-AF COLOMBIAN >60 Normal >=60 [facility] Comment on above: Performed By: #### C BC #### [facility] [address] [place] [address] Dr. Ashlie Hills EGFR-NON AF COLOMBIAN >60 Normal >=60 [facility] Comment on above: Performed By: #### C BC #### [facility] [address] [place] [address] Dr. Ashlie Hills Globulin (S) [Mass/Vol] 4.6 g/dL Normal [facility] Comment on above: Performed By: #### C BC #### [facility] [address] [place] [address] Dr. Ashlie Hills Glucose [Mass/Vol] 85 mg/dL Normal 74-106 [facility] Comment on above: Performed By: #### C BC #### [facility] [address] [place] [address] Dr. Ashlie Hills Potassium [Moles/Vol] 3.9 mmol/L Normal 3.5-5.1 [facility] Comment on above: Performed By: #### C BC #### [facility] [address] [place] [address] Dr. Ashlie Hills Protein [Mass/Vol] 7.8 g/dL Normal 6.4-8.2 [facility] Comment on above: Performed By: #### C BC #### [facility] [address] [address] [address] Ashlie Hills Sodium [Moles/Vol] 142 mmol/L Normal 136-145 [facility] Comment on above: Performed By: #### C BC #### [facility] [address] [place] [address] Dr. Ashlie Hills Urea nitrogen [Mass/Vol] 12.0 mg/dL Normal 7.0-18.0 [facility] Comment on above: Performed By: #### C BC #### [facility] [address] [place] [address] Dr. Ashlie Hills Urea nitrogen/Creatinine [Mass ratio] 19.4 mg/mg Normal [facility] Comment on above: Performed By: #### C BC #### [facility] [address] [place] [address] Dr. Ashlie Hills URINE MICROSCOPIC ONLYon BACTERIA TRACE Abnormal NONE SEEN [facility] Comment on above: Performed By: #### P OCGLUC #### [facility] [address] [place] [address] Dr. Ashlie Hills Bacteria identified Cx Nom (U) NOT INDICATED Normal [facility] Comment on above: Performed By: #### P OCGLUC #### [facility] [address] [place] [address] Dr. Ashlie Hills CAST NONE SEEN Normal NONE SEEN [facility] Comment on above: Performed By: #### P OCGLUC #### [facility] [address] [place] [address] Dr. Ashlie Hills Crystals LM Nom (Urine sed) NONE SEEN Normal NONE SEEN [facility] Comment on above: Performed By: #### P OCGLUC #### [facility] [address] [place] [address] Dr. Ashlie Hills Epithelial cells LM Ql (Urine sed) MODERATE Abnormal NONE SEEN /RARE The [facility] Comment on above: Performed By: #### P OCGLUC #### [facility] [address] [place] [address] Dr. Ashlie Hills MUCOUS NONE SEEN Normal NONE SEEN The [facility] Comment on above: Performed By: #### P OCGLUC #### [facility] [address] [place] [address] Dr. Ashlie Hills RBC 0-2 Normal 0-2 The [facility] Comment on above: Performed By: #### P OCGLUC #### [facility] [address] [place] [address] Dr. Ashlie Hills WBC 0-2 Abnormal NONE SEEN The [facility] Comment on above: Performed By: #### P OCGLUC #### [facility] [address] [place] [address] Dr. Ashlie Hills [facility] SARS-CoV-2 (COVID-19) RNA MADDY+probe Ql (Unsp spec) Detected Abnormal NOT DETECTED The [facility] Comment on above: Result Comment: This test is not yet approved or cleared by the [place] FDA. When there are no FDA-approved or cleared tests available, and other criteria are met, FDA can make tests available under an emergency access mechanism called an Emergency Use Authorization (EUA). The EUA for this test is supported by the Director [employer] of Health and Human Service's declaration that [...] VDAGS #### [facility] [address] [place] [address] Dr. Ashlie Hills INFLUENZA A AND B AGon 09-21 INFLUANEGH SEE BELOW Normal The [facility] Comment on above: Result Comment: Nega tive for Flu A protein angiten. Infection due to Flu A cannot be ruled out. Flu A angiten in the sample may be below the detection limit of the test. Performed By: #### I NFLUAB #### [facility] [address] [place] [address] Dr. Ashlie Hills INFLUBNEGH SEE BELOW Normal [facility] Comment on above: Result Comment: Nega tive for Flu B protein antigen. Infection due to Flu B cannot be ruled out. Flu B antigen in the sample may be below the detection limit of the test. Performed By: #### I NFLUAB #### [facility] [address] [place] [id number] [address] Ashlie Hills INFLUENZA A AG Negative Normal NEGATIVE SEE COMMENT [facility] Comment on above: Performed By: #### I NFLUAB #### [facility] [address] [place], [place] [address] Dr. Ashlie Hills INFLUENZA B AG Negative Normal NEGATIVE SEE COMMENT [facility] Comment on above: Performed By: #### I NFLUAB #### [facility] [address] [place], [place] [address] ABD/PELV W CONon [...] to at least 10/21/2018, unchanged. https://www.ncbi.nlm .nih.gov/pmc/article s/[id number] Electronically authenticated by: COLLIN HUERTAS Date: 2022-07-27 14:56 Normal The [facility] CREATININEon 07-18-2022 Creatinine [Mass/Vol] 0.81 mg/dL Normal 0.55-1.02 [facility] Comment on above: Performed By: #### C BC #### [facility] [address] [address] [address] Ashlie Hills EGFR-AF COLOMBIAN >60 Normal >=60 [facility] Comment on above: Performed By: #### C BC #### [facility] [address] [place], [place] [address] Dr. Ashlie Hills EGFR-NON AF COLOMBIAN >60 Normal >=60 [facility] Comment on above: Performed By: #### C BC #### [facility] [address] [place], [place] [address] LOW EXT W [...] by: PATRICIA IVAN Date: 2022-07-18 14:58 Normal [facility] XR KNEE LT 1_2 Von 3 [...] [facility] Covid-19 PCR (CVDTB)on 06-09 SARS-CoV-2 (COVID-19) RNA MADDY+probe Ql (Unsp spec) Not detected Normal NOT DETECTED The [facility] Comment on above: Result Comment: This test is not yet approved or cleared by the [place] FDA. When there are no FDA-approved or cleared tests available, and other criteria are met, FDA can make tests available under an emergency access mechanism called an Emergency Use Authorization (EUA). The EUA for this test is supported by the [place] of Health and Human Service's (HHS's) declaration [...] BC #### [facility] [address] [place] [address] Dr. Ashlie Hills INFLUENZA A AND B AGon 07-06 [facility] SEE BELOW Normal [facility] Comment on above: Result Comment: Nega tive for Flu A protein angiten. Infection due to Flu A cannot be ruled out. Flu A angiten in the sample may be below the detection limit of the test. Performed By: #### C BC #### [facility] [address] [address] [address] Ashlie Hills [facility] SEE BEL[facility] Normal [facility] Comment on above: Result Comment: Nega tive for Flu B protein antigen. Infection due to Flu B cannot be ruled out. Flu B antigen in the sample may be below the detection limit of the test. Performed By: #### C BC #### [facility] [address] [address] [address] Ashlie Hills INFLUENZA A AG Negative Normal NEGATIVE SEE COMMENT [facility] Comment on above: Performed By: #### C BC #### [facility] [address] [address] [address] Ashlie Hills INFLUENZA B AG Negative Normal NEGATIVE SEE COMMENT [facility] Comment on above: Performed By: #### C BC #### [facility] [address] [place] [address] Dr. Ashlie Hills POINT OF CARE GLUCOSEon 10 Glucose [Mass/Vol] 108 mg/dL Critically high 74-106 [facility] Comment on above: Performed By: #### C BC #### [facility] [address] [address] [address] Ashlie Hills RAGHU by IFAon 03-07-2022 Antinuclear Antibodies, IFA Negative Normal [facility] Comment on above: Result Comment: Nega tive <1:80 Borderline 1:80 Positive >1:80 ICAP nomenclature: AC-0 For more information about Hep-2 cell patterns use ANApatterns.org, the official website for the International Consensus on Antinuclear Antibody (RAGHU) Patterns (ICAP). Performed By: #### A NAIFA #### [facility] [address] [place] [address] Dr. Ashlie Hills IMMUNOFIXATION (TREVON), URINEo n 03-07-2022 TREVON Interpretation:U Comment Normal [facility] Comment on above: Result Comment: No m onoclonality detected. Performed By: #### C BC #### [facility] [address] [place] [address] Dr. Ashlie Hills IMMUNOFIXATION(TREVON),PROTEIN ELEC(PE),FREon 03-07-2022 Albumin [Mass/Vol] 3.0 g/dL Normal 2.9-4.4 [facility] Comment on above: Performed By: #### I NFLUAB #### [facility] [address] [place] [address] Dr. Ashlie Hills Albumin/Globulin [Mass ratio] 0.8 {ratio} Normal 0.7-1.7 [facility] Comment on above: Performed By: #### I NFLUAB #### [facility] [address] [address] [address] Ashlie Hills Fuhwh-0-Bcsnbiuz 0.3 g/dL Normal 0.0-0.4 [facility] Comment on above: Performed By: #### I NFLUAB #### [facility] [address] [address] [address] Ashlie Hills Inubl-3-Wtotidyi 1.0 g/dL Normal 0.4-1.0 [facility] Comment on above: Performed By: #### I NFLUAB #### [facility] [address] [address] [address] Ashlie Hills Beta Globulin 1.8 g/dL Critically high 0.7-1.3 [facility] Comment on above: Performed By: #### I NFLUAB #### [facility] [address] [place] [address] Dr. Ashlie Hills Free Denton Lt Chains,S 45.2 mg/L Critically high 3.3-19.4 [facility] Comment on above: Performed By: #### I NFLUAB #### [facility] [address] [address] [address] Ashlie Hills Free Lambda Lt Chains,S 40.3 mg/L Critically high 5.7-26.3 [facility] Comment on above: Performed By: #### I NFLUAB #### [facility] [address] [place] [address] Dr. Ashlie Hills Gamma Globulin 0.8 g/dL Normal 0.4-1.8 [place] Comment on above: Performed By: #### I NFLUAB #### [facility] [address] [address] [address] Ashlie Hills Globulin (S) [Mass/Vol] 3.9 g/dL Normal 2.2-3.9 [facility] Comment on above: Performed By: #### I NFLUAB #### [facility] [address] [place] [address] Dr. Ashlie Hills Immunofixation Result, Serum Comment Normal [facility] Comment on above: Result Comment: No m onoclonality detected. Performed By: #### I NFLUAB #### [facility] [address] [address] [address] Ashlie Hills Immunoglobulin A, Qn, Serum 776 mg/dL Critically high 87-352 [facility] Comment on above: Performed By: #### I NFLUAB #### [facility] [address] [address] [address] Ashlie Hills Immunoglobulin G, Qn, Serum 955 mg/dL Normal 586-1602 [facility] Comment on above: Performed By: #### I NFLUAB #### [facility] [address] [address] [address] Ashlie Hills Immunoglobulin M, Qn, Serum 39 mg/dL Normal 26-217 [facility] Comment on above: Performed By: #### I NFLUAB #### [facility] [address] [address] [address] Ashlie Hills Denton/Lambda Ratio, S 1.12 Normal 0.26-1.65 [facility] Comment on above: Performed By: #### I NFLUAB #### [facility] [address] [address] [address] Ashlie Hills M-Bright Not Observed Normal Not Observed [facility] Comment on above: Performed By: #### I NFLUAB #### [facility] [address] [address] [address] Ashlie Hills PDF . Normal [facility] Comment on above: Performed By: #### I NFLUAB #### [facility] [address] [address] [address] Ashlie Hills Please note: Comment Normal [facility] Comment on above: Result Comment: Prot ein electrophoresis scan will follow via computer, mail, or office supervisor delivery. Performed By: #### I NFLUAB #### [facility] [address] [address] [address] Ashlie Hills Protein [Mass/Vol] 6.9 g/dL Normal 6.0-8.5 [facility] Comment on above: Performed By: #### I NFLUAB #### [facility] [address] [address] [address] Ashlie Hills C-PEPTIDE, SERUMon 2 C-Peptide, Serum 3.1 ng/mL Normal 1.1-4.4 [facility] Comment on above: Result Comment: C-Pe ptide reference interval is for fasting patients. Performed By: #### C PEPT #### [facility] [address] [address] [address] Ashlie Hills HEP B SURFACE ANTIGEN SCREEN on 03-04-2022 HBsAg Screen Negative Normal Negative [facility] Comment on above: Performed By: #### C BC #### [facility] [address] [place] [address] Dr. Ashlie Hills HEPATITIS C VIRUS AB W/ REFL EX QUANTon 03-04-2022 HCV AB <0.1 Normal 0.0-0.9 [facility] Comment on above: Performed By: #### I NFLUAB #### [facility] [address] [place] [address] Dr. Ashlie Hills Interpretation: Comment Normal [facility] Comment on above: Result Comment: Nega tive Not infected with HCV, unless recent infection is suspected or other evidence exists to indicate HCV infection. Performed By: #### I NFLUAB #### [facility] [address] [place] [address] Dr. Ashlie Hills MICROALBUMIN/ CREATININE RAT IOon 03-04-2022 Albumin, Urine 367.4 ug/mL Normal Not Estab. [facility] Comment on above: Performed By: #### C BC #### [facility] [address] [place] [address] Dr. Ashlie Hills Albumin/ Creatinine Ratio 239 mg/g creat Critically high 0-29 [facility] Comment on above: Result Comment: Norm al: 0 - 29 Moderately increased: 30 - 300 Severely increased: >300 Performed By: #### C BC #### [facility] [address] [place] [address] Dr. Ashlie Hills Creatinine, Urine 153.9 mg/dL Normal Not Estab. [facility] Comment on above: Performed By: #### C BC #### [facility] [address] [address] [address] Ashlie Hills VIT D 25-OH LABCORPon 2021 Vitamin D, 25-Hydroxy <4.0 Critically low 30.0-100.0 [facility] Comment on above: Result Comment: Graciela min D deficiency has been defined by the [place] [employer] and an Endocrine Society practice guideline as a level of serum 25-OH vitamin D less than 20 ng/mL (1,2). The Endocrine Society went on to further define vitamin D insufficiency as a level between 21 and 29 ng/mL (2). 1. IOM ([place] [employer]). 2010. Dietary reference intakes for calcium and D. [place]: The National Academies Press. 2. Lynda STAHL, Keely OLIVEROS, Leandra LOPEZ, et al. Evaluation, treatment, and prevention of vitamin D deficiency: an Endocrine Society clinical practice guideline. JCEM. 2010; 96(7):1911-30. Performed By: #### C BC #### [facility] [address] [address] [address] Ashlie Hills GLYCOHEMOGLOBIN A1Con 2021 ADA RECOMMENDATION SEE BELOW Normal [facility] Comment on above: Result Comment: ADA RECOMMENDED LIMIT 4.0 - 6.0 ADA THERAPEUTIC TARGET < 7.0 ACTION SUGGESTED > 7.0 Performed By: #### C VDAGS #### [facility] [address] [address] [address] Ashlie Hills Glucose [Mass/Vol] 295 mg/dL Normal [facility] Comment on above: Performed By: #### C VDAGS #### [facility] [address] [address] [address] Ashlie Hills HbA1c (Bld) [Mass fraction] 11.9 % Critically high 4.5-6.2 [facility] Comment on above: Performed By: #### C VDAGS #### [facility] [address] [address] [address] Ashlie Hills HEMOGRAM AND PLATELon 2021 Hematocrit (Bld) [Volume fraction] 56.3 % Critically high 36.0-48.0 [facility] Comment on above: Performed By: #### C VDAGS #### [facility] [address] [place] [address] Dr. Ashlie Hills Hemoglobin (Bld) [Mass/Vol] 18.0 g/dL Critically high 12.0-16.0 [facility] Comment on above: Performed By: #### C VDAGS #### [facility] [address] [place] [address] Dr. Ashlie Hills MCH (RBC) [Entitic mass] 29.5 pg Normal 26.7-34.0 [facility] Comment on above: Performed By: #### C VDAGS #### [facility] [address] [place] [address] Dr. Ashlie Hills MCHC (RBC) [Mass/Vol] 32.0 g/dL Normal 29.9-35.2 [facility] Comment on above: Performed By: #### C VDAGS #### [facility] [address] [place] [address] Dr. Ashlie Hills MCV (RBC) [Entitic vol] 92.1 fL Normal 81.0-99.0 [facility] Comment on above: Performed By: #### C VDAGS #### [facility] [address] [place] [address] Dr. Ashlie Hills PLT 123 103/ul Critically low 150-450 [facility] Comment on above: Performed By: #### C VDAGS #### [facility] [address] [place] [address] Dr. Ashlie Hills RBC 6.11 106/ul Critically high 4.20-5.40 [facility] Comment on above: Performed By: #### C VDAGS #### [facility] Laboratory [address] [place] [address] Dr. Ashlie Hills WBC 16.4 103/ul Critically high 4.0-11.0 [facility] Comment on above: Performed By: #### C VDAGS #### [facility] Laboratory [address] [place] [address] Dr. Ashlie Hills LIPID PROFILEon 03-03-2022 CHOL-HDL RATIO NORM SEE BELOW Normal [facility] Comment on above: Result Comment: 3.3 - 4.4 LOW RISK 4.4 - 7.1 AVERAGE RISK 7.1 - 11.0 MODERATE RISK >11.0 HIGH RISK Performed By: #### C VDAGS #### [facility] Laboratory [address] [place], [place] [address] Dr. Ashlie Hills Cholesterol [Mass/Vol] 159 mg/dL Normal <=200 [facility] Comment on above: Performed By: #### C VDAGS #### [facility] Laboratory [id number] Ashlie Hills Cholesterol in HDL [Mass/Vol] 40 mg/dL Normal 40-60 [facility] Comment on above: Performed By: #### C VDAGS #### [facility] Laboratory [address] [address] [address] Ashlie Hills Cholesterol in LDL [Mass/Vol] 81.8 mg/dL Normal [facility] Comment on above: Performed By: #### C VDAGS #### [facility] Laboratory [address] [address] [address] Ashlie Hills Cholesterol.total/Ch olesterol in HDL [Mass ratio] 4.0 {ratio} Normal [facility] Comment on above: Performed By: #### C VDAGS #### [facility] Laboratory [id number] Ashlie Hills HDL NORMAL > or = 60 mg/dl - LOW CARDIOVASCULAR RISK <40 mg/dl - HIGH CARDIOVASCULAR RISK Normal [facility] Comment on above: Performed By: #### C VDAGS #### [facility] Laboratory [address] [place], [place] [address] Dr. Ashlie Hills LDL CALC NORMAL SEE BELOW Normal [facility] Comment on above: Result Comment: <100 mg/dl OPTIMAL 100 - 129 mg/dl NEAR OR ABOVE OPTIMAL 130 - 159 mg/dl BORDERLINE HIGH 160 - 189 mg/dl HIGH >190 mg/dl VERY HIGH Performed By: #### C VDAGS #### [facility] Laboratory [address] [address] [address] Ashlie Hills Triglyceride [Mass/Vol] 186 mg/dL Critically high <=150 [facility] Comment on above: Performed By: #### C VDAGS #### [facility] Laboratory [address] [place] [address] Dr. Ashlie Hills VLDL CALC 37.2 mg/dL Normal [facility] Comment on above: Performed By: #### C VDAGS #### [facility] Laboratory [address] [place] [address] Dr. Ashlie Hills RENAL FUNCTION PANELon 03-03 Albumin [Mass/Vol] 3.1 g/dL Critically low 3.4-5.0 [facility] Comment on above: Performed By: #### C BC #### [facility] Laboratory [address] [place] [address] Dr. Ashlie Hills Calcium [Mass/Vol] 9.2 mg/dL Normal 8.5-10.1 [facility] Comment on above: Performed By: #### C BC #### [facility] Laboratory [address] [place] [address] Dr. Ashlie Hills Chloride [Moles/Vol] 102 mmol/L Normal 98-107 [facility] Comment on above: Performed By: #### C BC #### [facility] Laboratory [address] [place] [address] Dr. Ashlie Hills CO2 [Moles/Vol] 31.9 mmol/L Normal 21.0-32.0 [facility] Comment on above: Performed By: #### C BC #### [facility] Laboratory [address] [place] [address] Dr. Ashlie Hills Creatinine [Mass/Vol] 0.68 mg/dL Normal 0.55-1.02 [facility] Comment on above: Performed By: #### C BC #### [facility] Laboratory [address] [place] [address] Dr. Ashlie Hills EGFR-AF COLOMBIAN >60 Normal >=60 [facility] Comment on above: Performed By: #### C BC #### [facility] Laboratory [address] [place] [address] Dr. Ashlie Hills EGFR-NON AF COLOMBIAN >60 Normal >=60 [facility] Comment on above: Performed By: #### C BC #### [facility] Laboratory [address] [place] [address] Dr. Ashlie Hills Glucose [Mass/Vol] 131 mg/dL Critically high 74-106 [facility] Comment on above: Performed By: #### C BC #### [facility] Laboratory [address] [place] [address] Dr. Ashlie Hills Phosphate [Mass/Vol] 4.0 mg/dL Normal 2.6-4.7 [facility] Comment on above: Performed By: #### C BC #### [facility] Laboratory [address] [place] [address] Dr. Ashlie Hills Potassium [Moles/Vol] 4.0 mmol/L Normal 3.5-5.1 [facility] Comment on above: Performed By: #### C BC #### [facility] Laboratory [address] [place] [address] Dr. Ashlie Hills Sodium [Moles/Vol] 141 mmol/L Normal 136-145 [facility] Comment on above: Performed By: #### C BC #### [facility] Laboratory [address] [place] [address] Dr. Ashlie Hills Urea nitrogen [Mass/Vol] 17.0 mg/dL Normal 7.0-18.0 [facility] Comment on above: Performed By: #### C BC #### [facility] Laboratory [address] [place] [address] Dr. Ashlie Hills UA RANDOM W/MICROSCOPICon BACTERIA NONE SEEN Normal NONE SEEN [facility] Comment on above: Performed By: #### I NFLUAB #### [facility] Laboratory [address] [place] [address] Dr. Ashlie Hills Bilirubin Ql (U) Negative Normal NEGATIVE [facility] Comment on above: Performed By: #### I NFLUAB #### [facility] Laboratory [address] [place] [address] Dr. Ashlie Hills CAST NONE SEEN Normal NONE SEEN [facility] Comment on above: Performed By: #### I NFLUAB #### [facility] Laboratory [address] [place] [address] Dr. Ashlie Hills Clarity (U) CLEAR Normal CLEAR [facility] Comment on above: Performed By: #### I NFLUAB #### [facility] Laboratory [address] [address] [address] Ashlie Hills Color (U) YELLOW Normal YELLOW [facility] Comment on above: Performed By: #### I NFLUAB #### [facility] Laboratory [address] [place] [address] Dr. Ashlie Hills Crystals LM Nom (Urine sed) NONE SEEN Normal NONE SEEN [facility] Comment on above: Performed By: #### I NFLUAB #### [facility] Laboratory [address] [place] [address] Dr. Ashlie Hills Epithelial cells LM Ql (Urine sed) FEW Abnormal NONE SEEN /RARE The [facility] Comment on above: Performed By: #### I NFLUAB #### [facility] Laboratory [address] [place] [address] Dr. Ashlie Hills Glucose Ql (U) Negative Normal NEGATIVE [facility] Comment on above: Performed By: #### I NFLUAB #### [facility] Laboratory [address] [place] [address] Dr. Ashlie Hills Hemoglobin Ql (U) Negative Normal NEGATIVE [facility] Comment on above: Performed By: #### I NFLUAB #### [facility] Laboratory [address] [place] [address] Dr. Ashlie Hills Ketones Ql (U) Negative Normal NEGATIVE [facility] Comment on above: Performed By: #### I NFLUAB #### [facility] Laboratory [address] [place] [address] Dr. Ashlie Hills LEUKOCYTES Negative Normal NEGATIVE [facility] Comment on above: Performed By: #### I NFLUAB #### [facility] Laboratory [address] [place] [address] Dr. Ashlie Hills MUCOUS NONE SEEN Normal NONE SEEN [facility] Comment on above: Performed By: #### I NFLUAB #### [facility] Laboratory [address] [place] [address] Dr. Ashlie Hills Nitrite Ql (U) Negative Normal NEGATIVE [facility] Comment on above: Performed By: #### I NFLUAB #### [facility] Laboratory [address] [place] [address] Dr. Ashlie Hills pH (U) 5.5 [pH] Normal 5-9 [facility] Comment on above: Performed By: #### I NFLUAB #### [facility] Laboratory [address] [place] [address] Dr. Ashlie Hills RBC 0-2 Normal 0-2 [facility] Comment on above: Performed By: #### I NFLUAB #### [facility] Laboratory [address] [place] [address] Dr. Ashlie Hills SPEC GRAVITY >=1.030 Abnormal 1.005-<=1.025 [facility] Comment on above: Performed By: #### I NFLUAB #### [facility] Laboratory [address] [place] [address] Dr. Ashlie Hills UA PROTEIN 100 mg/dl Abnormal NEGATIVE/ TRACE The [facility] Comment on above: Performed By: #### I NFLUAB #### [facility] Laboratory [address] [place] [address] Dr. Ashlie Hills Urobilinogen Qn (U) 0.2 {Little'U}/dL Normal 0.2 - 1. 0 [facility] Comment on above: Performed By: #### I NFLUAB #### [facility] Laboratory [address] [place] [address] Dr. Ashlie Hills WBC NONE SEEN Normal NONE SEEN [facility] Comment on above: Performed By: #### I NFLUAB #### [facility] Laboratory [address] [place] [address] Dr. Ashlie Hills URIC ACID SERUMon 03-03-2022 Urate [Mass/Vol] 5.0 mg/dL Normal 2.6-6.0 [facility] Comment on above: Performed By: #### I NFLUAB #### [facility] Laboratory [address] [place] [address] Dr. Ashlie Hills URINE T PROTEIN CREAT RATIOo n 03-03-2022 Protein (U) [Mass/Vol] 77.9 mg/dL Critically high <=12.0 [facility] Comment on above: Performed By: #### C VDAGS #### [facility] Laboratory [address] [place] [address] Dr. Ashlie Hills UR PROT CREAT RAT 0.44 Normal [facility] [place] Comment on above: Performed By: #### C VDAGS #### [facility] Laboratory [address] [address] [address] Ashlie Hills URINE CREAT 175.15 mg/dL Normal 20.00-300.00 [facility] Comment on above: Performed By: #### C VDAGS #### [facility] Laboratory [address] [place] [address] Dr. Ashlie Hills CULTURE URINEon 12-25-2021 CULTURE URINE Culture Observations: GREATER THAN TWO ORGANISMS PRESENT, HEAVILY MIXED. PLEASE RESUBMIT CLEAN CATCH MID-STREAM URINE IF CLINICALLY INDICATED. Normal [facility] Comment on above: Performed By: #### I NFLUAB #### [facility] Laboratory [address] [place] [address] Dr. Ashlie Hills CBC AUTO DIFFon 12-24-2021 BASO # 0.1 103/ul Normal 0.0-0.1 [facility] Comment on above: Performed By: #### C BC #### [facility] Laboratory [address] [place] [address] Dr. Ashlie Hills Basophils/100 WBC (Bld) 0.5 % Normal 0.2-2.0 [facility] Comment on above: Performed By: #### C BC #### [facility] Laboratory [address] [place] [address] Dr. Ashlie Hills EO # 0.4 103/ul Normal 0.0-0.7 [facility] Comment on above: Performed By: #### C BC #### [facility] Laboratory [address] [place] [address] Dr. Ashlie Hills Eosinophils/100 WBC (Bld) 2.4 % Normal 0.9-7.0 [facility] Comment on above: Performed By: #### C BC #### [facility] Laboratory [address] [address] [address] Ashlie Hills Erythrocyte distribution width (RBC) [Ratio] 14.1 % Normal 11.0-15.0 [facility] Comment on above: Performed By: #### C BC #### [facility] Laboratory [address] [place] [address] Dr. Ashlie Hills Hematocrit (Bld) [Volume fraction] 55.9 % Critically high 36.0-48.0 [facility] Comment on above: Performed By: #### C BC #### [facility] Laboratory [address] [place] [address] Dr. Ashlie Hills Hemoglobin (Bld) [Mass/Vol] 17.9 g/dL Critically high 12.0-16.0 [facility] Comment on above: Performed By: #### C BC #### [facility] Laboratory [address] [place] [address] Dr. Ashlie Hills IG # 0.06 10e3/ul Critically high 0.00-0.03 [facility] [place] Comment on above: Performed By: #### C BC #### [facility] Laboratory [address] [place] [address] Dr. Ashlie Hills IG % 0.4 % Normal 0.0-0.5 [facility] Comment on above: Performed By: #### C BC #### [facility] Laboratory [address] [place] [address] Dr. Ashlie Hills LYMPH # 5.8 103/ul Critically high 1.2-3.8 [facility] Comment on above: Performed By: #### C BC #### [facility] Laboratory [address] [place] [address] Dr. Ashlie Hills Lymphocytes/100 WBC (Bld) 35.4 % Normal 20.5-60.0 [facility] Comment on above: Performed By: #### C BC #### [facility] Laboratory [address] [place] [address] Dr. Ashlie Hills MANUAL DIFF REQ NO Normal [facility] Comment on above: Performed By: #### C BC #### [facility] Laboratory [address] [address] [address] Ashlie Hills MCH (RBC) [Entitic mass] 29.4 pg Normal 26.7-34.0 [facility] Comment on above: Performed By: #### C BC #### [facility] Laboratory [address] [place] [address] Dr. Ashlie Hills MCHC (RBC) [Mass/Vol] 32.0 g/dL Normal 29.9-35.2 [facility] Comment on above: Performed By: #### C BC #### [facility] Laboratory [address] [place] [address] Dr. Ashlie Hills MCV (RBC) [Entitic vol] 91.8 fL Normal 81.0-99.0 [facility] Comment on above: Performed By: #### C BC #### [facility] Laboratory [address] [place] [address] Dr. Ashlie Hills MONO # 0.8 103/ul Normal 0.3-0.8 [facility] Comment on above: Performed By: #### C BC #### [facility] Laboratory [address] [place] [address] Dr. Ashlie Hills Monocytes/100 WBC (Bld) 4.8 % Normal 1.7-12.0 [facility] Comment on above: Performed By: #### C BC #### [facility] Laboratory [address] [place] [address] Dr. Ashlie Hills NEUT # 9.3 103/ul Critically high 1.4-6.5 [facility] Comment on above: Performed By: #### C BC #### [facility] Laboratory [address] [place] [address] Dr. Ashlie Hills Neutrophils/100 WBC (Bld) 56.5 % Normal 43.0-75.0 [facility] Comment on above: Performed By: #### C BC #### [facility] Laboratory [address] [place] [address] Dr. Ashlie Hills Platelet mean volume (Bld) [Entitic vol] 12.9 fL Normal 9.5-13.5 [facility] Comment on above: Performed By: #### C BC #### [facility] Laboratory [address] [place], [place] [address] Dr. Ashlie Hills PLT 127 103/ul Critically low 150-450 [facility] Comment on above: Performed By: #### C BC #### [facility] Laboratory [address] [place], [place] [address] Dr. Ashlie Hills RBC 6.09 106/ul Critically high 4.20-5.40 [facility] Comment on above: Performed By: #### C BC #### [facility] Laboratory [address] [place], [place] [address] Dr. Ashlie Hills WBC 16.4 103/ul Critically high 4.0-11.0 [facility] Comment on above: Performed By: #### C BC #### [facility] Laboratory [address] [place], [place] [address] ABD/PELVIS WO CONon [...] [facility] ER URINE PROFILEon 2 Bilirubin Ql (U) Negative Normal NEGATIVE [facility] Comment on above: Performed By: #### Tracey LYMAN UMICRO #### [facility] Laboratory [address] [place] [address] Dr. Ashlie Hills Clarity (U) CLEAR Normal CLEAR [facility] Comment on above: Performed By: #### Tracey LYMAN UMICRO #### [facility] Laboratory [address] [address] [address] Ashlie Hills Color (U) DK. ORANGE Abnormal YELLOW [facility] Comment on above: Performed By: #### E NURA ICRO #### [facility] Laboratory [address] [place] [address] Dr. Ashlie Hills ERUAHD A micrscopic examination will be performed if indicated. Normal [facility] Comment on above: Performed By: #### E NURA UMICRO #### [facility] Laboratory [address] [place] [address] Dr. Ashlie Hills Glucose Ql (U) 250 mg/dl Abnormal NEGATIVE [place] Comment on above: Performed By: #### MADELINE DIAZRO #### [facility] Laboratory [address] [place] [address] Dr. Ashlie Hills Hemoglobin Ql (U) Negative Normal NEGATIVE [facility] [place] Comment on above: Performed By: #### MADELINE DIAZRO #### [facility] Laboratory [address] [place] [address] Dr. Ashlie Hills Ketones Ql (U) Negative Normal NEGATIVE [facility] Comment on above: Performed By: #### MADELINE DIAZRO #### [facility] Laboratory [address] [place] [address] Dr. Ashlie Hills LEUKOCYTES Negative Normal NEGATIVE [facility] Comment on above: Performed By: #### MADELINE DIAZRO #### [facility] Laboratory [address] [place] [address] Dr. Ashlie Hills Nitrite Ql (U) Negative Normal NEGATIVE [place] Comment on above: Performed By: #### MADELINE DIAZRO #### [facility] Laboratory [address] [place] [address] Dr. Ashlie Hills pH (U) 5.0 [pH] Normal 5-9 [facility] Comment on above: Performed By: #### MADELINE DIAZRO #### [facility] Laboratory [address] [place] [address] Dr. Ashlie Hills Protein (U) [Mass/Vol] 100 mg/dL Abnormal NEGATIVE/ TRACE [facility] Comment on above: Performed By: #### MADELINE DIAZRO #### [facility] Laboratory [address] [place] [address] Dr. Ashlie Hills SPEC GRAVITY >=1.030 Abnormal 1.005-<=1.025 [facility] Comment on above: Performed By: #### MADELINE DIAZRO #### [facility] Laboratory [address] [place] [address] Dr. Ashlie Hills UR MICRO IND INDICATED Normal [facility] Comment on above: Performed By: #### EVONNE DIAZ #### [facility] Laboratory [address] [place] [address] Dr. Ashlie Hills Urobilinogen Qn (U) 1.0 {Little'U}/dL Normal 0.2 - 1. 0 [facility] Comment on above: Performed By: #### EVONNE DIAZ #### [facility] Laboratory [address] [place] [address] Dr. Ashlie Hills PROF CHEM 8 (BAS METB)on Anion gap [Moles/Vol] 12.1 mmol/L Normal [facility] Comment on above: Performed By: #### I NFLUAB #### [facility] Laboratory [address] [place] [address] Dr. Ashlie Hills Calcium [Mass/Vol] 9.0 mg/dL Normal 8.5-10.1 [facility] Comment on above: Performed By: #### I NFLUAB #### [facility] Laboratory [address] [place] [address] Dr. Ashlie Hills Chloride [Moles/Vol] 101 mmol/L Normal 98-107 [facility] Comment on above: Performed By: #### I NFLUAB #### [facility] Laboratory [address] [place] [address] Dr. Ashlie Hills CO2 [Moles/Vol] 29.1 mmol/L Normal 21.0-32.0 [facility] Comment on above: Performed By: #### I NFLUAB #### [facility] Laboratory [address] [place] [address] Dr. Ashlie Hills Creatinine [Mass/Vol] 0.86 mg/dL Normal 0.55-1.02 [facility] Comment on above: Performed By: #### I NFLUAB #### [facility] Laboratory [address] [place] [address] Dr. Ashlie Hills EGFR-AF COLOMBIAN >60 Normal >=60 [facility] Comment on above: Performed By: #### I NFLUAB #### [facility] Laboratory [address] [address] [address] Ashlie Hills EGFR-NON AF COLOMBIAN >60 Normal >=60 [facility] Comment on above: Performed By: #### I NFLUAB #### [facility] Laboratory [address] [place] [address] Dr. Ashlie Hills Glucose [Mass/Vol] 236 mg/dL Critically high 74-106 [facility] Comment on above: Performed By: #### I NFLUAB #### [facility] Laboratory [address] [place] [address] Dr. Ashlie Hills Potassium [Moles/Vol] 4.2 mmol/L Normal 3.5-5.1 [facility] Comment on above: Performed By: #### I NFLUAB #### [facility] Laboratory [address] [place] [address] Dr. Ashlie Hills Sodium [Moles/Vol] 138 mmol/L Normal 136-145 [facility] Comment on above: Performed By: #### I NFLUAB #### [facility] Laboratory [address] [place] [address] Dr. Ashlie Hills Urea nitrogen [Mass/Vol] 11.0 mg/dL Normal 7.0-18.0 [facility] Comment on above: Performed By: #### I NFLUAB #### [facility] Laboratory [address] [place] [address] Dr. Ashlie Hills Urea nitrogen/Creatinine [Mass ratio] 12.8 mg/mg Normal [facility] Comment on above: Performed By: #### I NFLUAB #### [facility] Laboratory [address] [place] [address] Dr. Ashlie Hills URINE MICROSCOPIC ONLYon BACTERIA SMALL Abnormal NONE SEEN [facility] Comment on above: Performed By: #### EVONNE DIAZ #### [facility] Laboratory [address] [place] [address] Dr. Ashlie Hills Bacteria identified Cx Nom (U) INDICATED Normal [facility] Comment on above: Performed By: #### EVONNE DIAZ #### [facility] Laboratory [address] [place] [address] Dr. Ashlie Hills CAST NONE SEEN Normal NONE SEEN [facility] Comment on above: Performed By: #### E RUR, UMICRO #### [facility] Laboratory [address] [place] [address] Dr. Ashlie Hills Crystals LM Nom (Urine sed) NONE SEEN Normal NONE SEEN The [facility] Comment on above: Performed By: #### E RUR, UMICRO #### [facility] Laboratory [address] [place] [address] Dr. Ashlie Hills Epithelial cells LM Ql (Urine sed) MODERATE Abnormal NONE SEEN /RARE [facility] Comment on above: Performed By: #### E RUR, UMICRO #### [facility] [address] [place] [address] Dr. Ashlie Hills MUCOUS NONE SEEN Normal NONE SEEN [facility] Comment on above: Performed By: #### E RUR, UMICRO #### [facility] [address] [place] [address] Dr. Ashlie Hills RBC 0-2 Normal 0-2 [facility] Comment on above: Performed By: #### E RUR, UMICRO #### [facility] [address] [place] [address] Dr. Ashlie Hills WBC 0-2 Abnormal NONE SEEN [facility] Comment on above: Performed By: #### E RUR, UMICRO #### [facility] [address] [place] [address] Dr. Ashlie Hills YEAST PRESENT Abnormal NONE SEEN The [facility] Comment on above: Performed By: #### E RUR, UMICRO #### [facility] [address] [place] [address] Dr. Ashlie Hills HIP RIGHT 1 OR 2 VWS WITH PE LVISon 07-20-2020 HIP RIGHT 1 OR 2 VWS WITH PELVIS [facility] Department of Radiology [address] [place] [id number] Patient Name: MITZI MACIAS : 1970 Sex: F Age: Race: White Pt. Location: Patient Status: O Ordered Date: 07/20/2020 1:45:00 PM Completed Date: 07/20/2020 01:57 PM Requesting Provider: LIZ EISENBERG Attending Provider: LIZ EISENBERG Report Copy To: MCKAYLA BLAS Signs & Symptoms: M25.551 Pain in right hip I10 History: [place] Comments: evaluate Exam: HIP RIGHT 1 OR [...] MRI. Electronically signed: Pipo Acevedo. Transcribed by: [email or web address], User Resident: Electronically Signed by: PIPO ACEVEDO @ 07/20/2020 03:45 PM Normal The [facility] Comment on above: Order Comment: evalu ate Vital Signs Date Time Vital Sign Value Performing Clinician Facility 04-14-2024 10: Body height 165.1 cm Mckayla Blas SHIRT FOLDING MACHINE OPERATOR Work Phone: [facility] 04-14-2024 10: Body mass index (BMI) [Ratio] 61.01 kg/m2 Mckayla Blas SHIRT FOLDING MACHINE OPERATOR Work Phone: [facility] 04-14-2024 10: Body temperature 98.49 [degF] Mckayla Blas SHIRT FOLDING MACHINE OPERATOR Work Phone: [facility] 04-14-2024 10:27-0400 Body weight 166.29 kg Mckayla Blas SHIRT FOLDING MACHINE OPERATOR Work Phone: [facility] 04-14-2024 10:27-0400 Diastolic blood pressure 80 mm[Hg] Mckayla Rosenbergz SHIRT FOLDING MACHINE OPERATOR Work Phone: [facility] 04-14-2024 10:27-0400 Heart rate 77 /min Mckayla Rosenbergz SHIRT FOLDING MACHINE OPERATOR Work Phone: [facility] 04-14-2024 10:27-0400 Respiratory rate 19 /min Mckayla Rosenbergz SHIRT FOLDING MACHINE OPERATOR Work Phone: [facility] 04-14-2024 10:27-0400 SaO2% (BldA) [Mass fraction] 92 % Mckayla Blas SHIRT FOLDING MACHINE OPERATOR Work Phone: [facility] 04-14-2024 10:27-0400 Systolic blood pressure 116 mm[Hg] Mckayla Blas SHIRT FOLDING MACHINE OPERATOR Work Phone: [facility] 03-08-2022 15:00-0400 Body height 170.18 cm Stephanie Tico Other [facility] Other 03-08-2022 15:00-0400 Body temperature 97.6 [degF] Stephanie Tico Other [facility] Other 03-08-2022 15:00-0400 Diastolic blood pressure 72 mm[Hg] Stephanie Tico Other [facility] Other 03-08-2022 15:00-0400 Respiratory rate 20 /min Stephanie Tico Other [facility] Other 03-08-2022 15:00-0400 SaO2% (BldA) [Mass fraction] 91 % Stephanie Tico Other [facility] Other 03-08-2022 15:00-0400 Systolic blood pressure 131 mm[Hg] Stephanie Tico Other [facility] Other 02-20-2022 09:20-0400 Body height 170.18 cm Stephanie Tico Other [facility] Other 02-20-2022 09:20-0400 Body temperature 96.5 [degF] Stephanie Tico Other [facility] Other 02-20-2022 09:20-0400 Diastolic blood pressure 69 mm[Hg] Stephanie Tico Other [facility] Other 02-20-2022 09:20-0400 Respiratory rate 20 /min Stephanie Tico Other [facility] Other 02-20-2022 09:20-0400 SaO2% (BldA) [Mass fraction] 91 % Stephanie Tico Other [facility] Other 02-20-2022 09:20-0400 Systolic blood pressure 129 mm[Hg] Stephanie Tico Other [facility] Other 02-06-2022 10:24-0400 Blood Pressure Location Elbert REGLA [facility] 02-06-2022 10:24-0400 Diastolic blood pressure 76 mm[Hg] Elbert VARGAS [facility] 02-06-2022 10:24-0400 Heart rate 70 /min Elbert VARGAS [facility] 02-06-2022 10:24-0400 Respiratory rate 16 /min Elbert VARGAS [facility] 02-06-2022 10:24-0400 Systolic blood pressure 134 mm[Hg] Elbert VARGAS [facility] Encounters Encounter Date Encounter Type Care Provider Facility Start: 06-04-2024 ambulatory SARAH E SILVIA Facili ty:[facility] Mckee Start: 05-08-2024 ambulatory SARAH E SILVIA Facili ty:[facility] Villalobos Start: 04-14-2024 End: 04-14-2024 Bamboo flowsheet Mckayla Blas SHIRT FOLDING MACHINE OPERATOR Work Phone: [facility] Start: 04-14-2024 End: 04-14-2024 Bamboo flowsheet Mckayla Blas SHIRT FOLDING MACHINE OPERATOR Work Phone: [facility] Start: 04-14-2024 [...] Start: 01-17-2024 Patient encounter procedure Mckayla Aichholz SHIRT FOLDING MACHINE OPERATOR Work Phone: [facility] Start: 01-17-2024 End: 01-17-2024 ambulatory MCKAYLA AICHHOLZ Not Available Start: 11-15-2023 End: 11-15-2023 ambulatory MCKAYLA AICHHOLZ Not Available Start: 11-14-2023 End: 11-14-2023 ambulatory [facility] Start: 11-01-2023 End: 11-01-2023 ambulatory MCKAYLA AICHHOLZ Not Available Start: 09-27-2023 End: 09-27-2023 ambulatory MCKAYLA AICHHOLZ Not Available Start: 08-17-2023 Refill Mckayla Aichholz SHIRT FOLDING MACHINE OPERATOR Work Phone: [facility] Comment on above: Vaginal yeast infect ion (Primary Dx) Start: 08-14-2023 Refill Mckayla Aichholz SHIRT FOLDING MACHINE OPERATOR Work Phone: [facility] Comment on above: Type 2 diabetes asiya itus with unspecified complications ([facility]); Edema, unspecified; Edema Start: 07-10-2023 End: 07-10-2023 ambulatory MCKAYLA AICHHOLZ Not Available Start: 12-05-2022 ambulatory NARENDRANATH LAKSHMIPATHY . Facility:[facility] Start: 12-05-2022 End: 12-06-2022 Evaluation and management of inpatient UMBERTO ALONDRA . Facility:[facility] Start: 11-23-2022 End: 11-23-2022 ambulatory BOW TACKER MCKAYLA AICHHOLZ Facility:[facility] Start: 11-22-2022 End: 11-23-2022 ambulatory BOW TACKER MCKAYLA AICHHOLZ Facility:[facility] Start: 11-17-2022 End: 11-18-2022 ambulatory SUBHASH CHASITY . Facility:[facility] Start: 11-15-2022 End: 11-15-2022 Patient encounter procedure SARAH VEGA [facility] Start: 10-05-2022 End: 10-05-2022 ambulatory MARIANO LOZANO . Facility:[facility] Start: 09-21-2022 End: 09-21-2022 ambulatory SAYDA GANA LARACayetanoJODIE Facility:[facility] Start: 09-14-2022 ambulatory RAFAEL Ribera y:[facility]1 Start: 08-24-2022 End: [address] CHAPARRO MORTENSEN . Facility:[facility] Start: 08-21-2022 End: 08-22-2022 ambulatory [facility] Braulio [facility] Facility:[facility]1 Start: 07-27-2022 End: 07-28-2022 ambulatory CECILIA MILANLYTray . Facility:[facility] Start: 07-18-2022 End: 07-19-2022 ambulatory CECILIA TAMLYN . Facility:[facility] Start: 07-18-2022 End: 07-19-2022 ambulatory [facility] Braulio [facility] Facility:[facility]1 Start: 07-06-2022 End: 07-06-2022 ambulatory SAYDA BLAS Facility:[facility] Start: 05-11-2022 End: 05-12-2022 ambulatory GIL VALENZUELA . Facility:[facility] Start: 04-25-2022 End: 04-25-[address] CHAPARRO MORTENSEN . Facility:[facility] Start: 04-20-2022 End: 04-21-2022 ambulatory GIL VALENZUELA . Facility:[facility] Start: 03-08-2022 End: 03-08-2022 ambulatory Stephanie Tico Other [facility] Other Start: 03-08-2022 Office outpatient vi sit 15 minutes Stephanie Tico [facility] Start: 03-03-2022 End: 03-04-2022 ambulatory BOW TACKER MCKAYLA LARACayetanoJODIE Facility:[facility] Start: 02-20-2022 End: 02-20-2022 ambulatory Stephanie Tico Other [facility] Other Start: 02-20-2022 Office outpatient ne w 45 minutes Stephanie Tico [facility] Start: 02-06-2022 End: 02-06-2022 Patient encounter procedure Elbert VARGAS [facility] Start: 01-19-2022 End: 01-20-2022 ambulatory GIL VALENZUELA . Facility:[facility] Start: 12-24-2021 End: 12-24-2021 ambulatory OLE RAMIREZ Facility: Start: 08-26-2020 End: 09-10-2020 Patient encounter procedure MARY TAVERAS Facility:[facility] Start: 10-30-2019 End: 10-30-2019 Emergency department patient visit JAMES Reis [facility] Start: 10-30-2019 End: 10-30-2019 Emergency department patient visit James Desouza [facility] Department Start: 11-02-2016 Preoperative state Stephanie Tico Other [facility] Other Procedures Date Procedure Procedure Detail Performing Clinician Start: 12-14-2023 Mammography Mckayla clifford SHIRT FOLDING MACHINE OPERATOR Work Phone: Start: 11-22-2022 Mammography Mckayla clifford SHIRT FOLDING MACHINE OPERATOR Work Phone: Start: 10-08-2015 Microscopic observat ion [Identifier] in Cervix by Cyto stain Mckayla Blas SHIRT FOLDING MACHINE OPERATOR Work Phone: H/O: hysterectomy Elbert LARA Laparoscopic [...] [facility] [address] [place] [address] Mckayla Blas, SHIRT FOLDING MACHINE OPERATOR [address] [place] [id number] [facility] Start: 07-14-2024 End: 07-14-2024 Patient encounter procedure 07/14/2024 10:10 AM EST Office Visit [facility] [address] [place] [address] Rain Odonnell MD [address] [place] [address] [facility] Start: 06-06-2024 Influenza vaccination Influenza Vacc ine (#1) [facility] Comment on above: Postponed from 03/09 (Patient Refused) Start: 05-17-2024 Hemoglobin A1c measurement Diabetes: Hemoglobin A1C [facility] Start: 05-15-2024 End: 05-15-2024 Patient encounter procedure 05/15/2024 11:20 AM EST Office Visit [facility] [address] [place] [address] Rain Odonnell MD [address] [place] [address] [facility] Start: 04-14-2024 End: 04-14-2024 Patient encounter procedure 04/14/2024 11:00 AM EDT Office Visit [facility] [address] [place] [address] Mckayla Blas, SHIRT FOLDING MACHINE OPERATOR [address] [place] [phone] Arrived [facility] Comment on above: Arrived Start: 03-09-2024 Influenza vaccination Influenza Vacc ine (#1) [facility] Start: 02-19-2024 Hemoglobin A1c measurement Diabetes: Hemoglobin A1C [facility] Start: 11-24-2023 Urine screening for protein Diabetes: Urine Protein Screening [facility] Start: 11-23-2023 Screening for malignant neoplasm of breast Mammogram [facility] Start: 10-15-2023 End: 10-15-2023 Patient encounter procedure 10/15/2023 4:30 PM EDT Office Visit [facility] [address] [place] [address] Mckayla Blas, SILVANO [address] [place] [address] [facility] Start: 08-09-2023 Hemoglobin A1c measurement Diabetes: Hemoglobin A1C [facility] Start: 05-27-2021 Glaucoma screening Diabetes: R etinopathy Screening [facility] Start: 03-09-2020 Influenza vaccination Flu vacc ine (Season Ended) [place], [place] Start: 10-07-2018 Screening for malignant neoplasm of cervix [facility] Start: 2010 Lipid panel Lipid screen [place], [place] Start: 2000 Screening for malignant neoplasm of cervix HPV/Cotest [facility] Start: 1991 Screening for malignant neoplasm of cervix Cervical cancer screen [place], [place] Start: 1989 DTaP/Tdap/Td vaccine (1 - Tdap) DTaP/Tdap/Td vaccine (1 - Tdap) [place], [place] Start: 1985 HIV screening HIV screen [place], [place] Start: 1970 Medicare Annual Wellness (AWV) Medicare Annual Wellness (AWV) [facility] Start: 1970 Screening for malignant neoplasm of colon [facility] Immunizations Immunization Date Immunization Notes Care Provider Fa cility 05-18-2023 influenza, injectabl e, quadrivalent, contains preservative Mckayla Blas NP Work Phone: [facility] 05-18-2023 influenza virus vacc ine, unspecified formulation Mckayla Blas SHIRT FOLDING MACHINE OPERATOR Work Phone: [facility] 07-19-2021 SARS-CoV-2 (COVID-19 ) mRNA BNT-162b2 vax SARAH GANRY [facility] 10-28-2020 SARS-CoV-2 (COVID-19 ) mRNA BNT-162b2 vax SARAH SILVIA [facility] 10-08-2020 SARS-CoV-2 (COVID-19 ) mRNA BNT-162b2 vax SARAH SILVIA [facility] 04-16-2017 influenza virus vacc ine, unspecified formulation Mckayla Aichholz SHIRT FOLDING MACHINE OPERATOR Work Phone: [facility] 04-16-2017 pneumococcal polysaccharide vaccine, 23 valent Mckayla Aichholz SHIRT FOLDING MACHINE OPERATOR Work Phone: [facility] 05-10-2016 influenza virus vacc ine, unspecified formulation Mckayla Aichholz SHIRT FOLDING MACHINE OPERATOR Work Phone: [facility] 05-02-2013 influenza virus vacc ine, whole virus Mckayla Aichholz SHIRT FOLDING MACHINE OPERATOR Work Phone: [facility] 01-29-1998 measles, mumps and rubella virus vaccine Mckayla Aichholz SHIRT FOLDING MACHINE OPERATOR Work Phone: [facility] Payers Date Payer Category Payer Private Health Insurance [facility] [id number] 2023-Present [address] [address] [place] [address] [id number] 2023 Private Health Insurance [id number] 2023 Medicare [id number] 2018 Medicaid MEDICAID [facility] [id number] 2018-Present [phone] [address] [place], [place] [address] Medicaid [id number] 2017 Medicare [id number]. [id number] 1970 Unknown [id number] 2.16.840.1.809126.3.579.2. 647 1970 Unknown [id number] 2.16.840.1.579723.3.579.2. 593 1970 Unknown [id number] 2.16.840.1.906141.3.579.2. 593 1970 Unknown [id number] 2.16.840.1.369851.3.579.2. 593 1970 Unknown [id number] 2.16.840.1.172027.3.579.2. 593 1970 Unknown [id number] 2.16.840.1.688504.3.579.2. 593 1970 Unknown [id number] 2.16.840.1.289611.3.579.2. 593 1970 Unknown [id number] 2.16.840.1.842218.3.579.2. 593 1970 Unknown [id number] 2.16.840.1.812475.3.579.2. 593 1970 Unknown [id number] 2.16.840.1.207390.3.579.2. 593 1970 Unknown [id number] 2.16.840.1.459771.3.579.2. 593 1970 Unknown [id number] 2.16.840.1.073191.3.579.2. 593 1970 Unknown [id number] 2.16.840.1.442300.3.579.2. 593 1970 Unknown [id number] 2.16.840.1.524035.3.579.2. 593 1970 Unknown [id number] 2.16.840.1.053437.3.579.2. 593 1970 Unknown [id number] 2.16.840.1.672456.3.579.2. 593 1970 Unknown [id number] 2.16.840.1.325939.3.579.2. 593 1970 Unknown [id number] 2.16.840.1.910801.3.579.2. 593 1970 Unknown [id number] 2.16.840.1.320107.3.579.2. 593 1970 Unknown [id number] 2.16.840.1.454549.3.579.2. 59 1970 Unknown [id number] 2.16.840.1.228884.3.579.2 59 1970 Unknown [id number] 2.16.840.1.928990.3.579.2. 59 1970 Unknown [id number] 2.16.840.1.453685.3.579.2 59 1970 Unknown [id number] 2.16.840.1.472821.3.579.2. 1259 1970 Unknown [id number] 2.16.840.1.244702.3.579.2. 1259 1970 Unknown [id number] 2.16.840.1.171753.3.579.2. 1259 1970 Unknown [id number] 2.16.840.1.716059.3.579.2. 1259 1970 Unknown [id number] 2.16.840.1.653133.3.579.2. 1259 1970 Unknown [id number] 2.16.840.1.698508.3.579.2. 1259 1970 Unknown [id number] 2.16.840.1.054951.3.579.2. 727 1970 Unknown [id number] 2.16.840.1.784835.3.579.2. 727 1959 Medicaid [id number] 1959 Private Health Insurance [id number] 1959 Unknown [id number] 2.16.840.1.484980.19 Social History Date Type Detail Facility Start: 02-17-2014 End: 07-10-2023 Tobacco smoking status NHIS Current every day smoker [place], [place] Start: 02-17-1994 History of tobacco use Cigarette Smo ker [place] Start: 02-17-2014 End: 07-10-2023 Cigarettes smoked current (pack per day) - Reported [place], [place] Start: 02-17-2014 Alcohol intake Current drinke r of alcohol (finding) [place] Start: 02-17-2014 Alcohol Comment Rare [facility] [place], [place] Start: 1970 Sex Assigned At Not on file [place] Exposure to SARS-CoV -2 (event) Unable to assess [place], [place] Start: 02-06-2022 Tobacco smoking status Smoker (findi ng) [facility] Start: 07-10-2023 End: 01-17-2024 Sex Assigned At Female [facility] Start: 11-15-2022 Tobacco smoking status Heavy t obacco smoker (finding) [facility] Start: 07-10-2023 Tobacco use and exposure Smoke less tobacco non-user [facility] Start: 07-10-2023 End: 04-14-2024 Alcohol intake Lifetime non-drinker (finding) [facility] Within the last year , have you been afraid of your partner or ex-partner? No [facility] Do you belong to any clubs or organizations such as muslim groups, unions, fraternal or athletic groups, or [...] Equipment Origin al Text Equipment Identifier Dates [id number] Start: 01-18-2024 Functional Status Date Assessment Result Facility 11-15-2022 Functional Status N/A [facility] 02-06-2022 Functional Status N/A [facility] Clinical Notes 01-19-2022 to 04-14-2024 Mckayla Blas [...] complication, with long-term current use of insulin ([facility]) Check blood sugars daily, follow w Endo. [...] being taken. She does not see a manager dish.Eye exam is not current. Hypertension This is [...] or chew. ergocalciferol (Vitamin D2) 1.25 MG (97433 UT) capsule TAKE 1 CAPSULE BY MOUTH ONE TIME PER WEEK furosemide (LASIX) 20 mg, Oral, Daily PRN, Take in the afternoon as needed furosemide (LASIX) 40 mg, Oral, Daily Glucose Blood (ACCU-CHEK JAQUI PLUS ) 4 times daily HumaLOG KWIKPEN 100 UNIT/ML injection Subcutaneous hydrALAZINE (APRESOLINE) 25 mg, Oral, 2 times daily HYDROcodone-acetaminophen (Spofford) 5-325 MG tablet 1 tablet, 3 times [...] CT Albuminuria 09/17/2023 Angiomyolipoma Anxiety and depression ([facility]) 07/10/2023 Asthma ([facility]) 07/10/2023 Cellulitis of left lower extremity Cervical cancer ([facility]) 09/17/2023 Chronic pain of both knees 09/17/2023 COPD (chronic obstructive pulmonary disease) ([facility]) 07/10/2023 COPD exacerbation [facility] 09/17/2023 Decreased functional mobility 09/17/2023 Diabetic neuropathy ([facility]) 07/10/2023 Edema 07/10/2023 Elevated sed rate Elevated WBC count GERD (gastroesophageal reflux disease) 09/17/2023 Hyperlipidemia ([facility]) 09/17/2023 Hypertension ([facility]) 07/10/2023 Insomnia 09/17/2023 Lower extremity edema 09/17/2023 Obstructive sleep apnea 07/10/2023 PAD (peripheral artery disease) ([facility]) 09/17/2023 Pancreatitis 09/17/2023 Pneumonia 09/17/2023 Pulmonary hypertension ([facility]) 09/17/2023 Radiculopathy, lumbar region 09/17/2023 Tobacco user 09/17/2023 Type 2 diabetes mellitus with complication, with long-term current use of insulin ([facility]) 07/10/2023 Unilateral primary osteoarthritis, right hip 09/17/2023 [...] List Items Addressed This Visit Diabetic neuropathy ([facility]) Continue with tristan EAST reviewed Fu in 3 months Relevant Medications pregabalin (Lyrica) 300 MG capsule COPD (chronic obstructive pulmonary disease) ([facility]) - Primary Stable at this time, no changes in meds Encouraged smoking cessation Cont with dr Yañez Hypertension ([facility]) Stable on current meds Refill meds Relevant Medications hydrALAZINE (Apresoline) 25 MG tablet lisinopril 20 MG tablet Type 2 diabetes mellitus with complication, with long-term current use of insulin ([facility]) Check blood sugars daily, follow w Endo. [...] MCG tablet documented in this encounter [facility] 11-14-2023 Note [place] Cardiology - [facility] Subjective Mitzi Macias is a 53 y.o. year old female being seen as new patient to establish care. Ref from Mckayla Blas CNP for pulmonary hypertension. She had echo in Aug 2023 while inpatient at [facility] for pneumonia and COPD exacerbation. Denies [...] was admitted in early 2023 to the [facility] with hypoxemia and treated as COPD exacerbation. [...] wheelchair Skin: Gene (more content not included)... [facility] 11-15-2022 Hospital Discharge instructions Patient Education 11/15/2022 [...] include: ?8 oz (237 mL) of milk, rfhsmfi-gpulvgdvdwla-iijml milk, and calcium-fortifiedfruit juice. Calcium-fortified means that [...] ?Spinach (cooked), rhubarb, beets, sweet potatoes, and Singaporean chard. ?Peanuts. ?Potato chips, korean fries, and baked potatoes with skin on. ?Nuts and nut products. ?Chocolate. If you regularly take a diuretic medicine, make sure to eat at least 1 or 2 servings of fruits or vegetables that are high in potassium each day. These include: ?Avocado. ?Banana. ?[place], prune, carrot, or tomato juice. ?Baked potato. [...] magnesium, fish oil, or vitamin B6. Take ysvs-zhs-rbwzkhn and prescription medicines only as told by [...] Casseroles. Pizza. Lasagna. Frozen meals. Potato chips. Danish fries. The items listed above may not [...] provider. Document Revised: 03/06/2022 Document Reviewed: 03/06/2022 [employer] Patient Education 2022 [employer]. Follow Up Care 02/06/2022 11:44:09 With:SARAH VEGA PA-C, URL Address: [address] [place] [address] When: Unknown [facility] 08-24-2022 Note CONSULTATION CONSULTATION DATE: 08/24/2022 HISTORY [...] We maintain her on pain medication with Spofford 5/325 t.i.d., diclofenac 75 mg b.i.d. Her [...] her at this point. A refill for Spofford 5/325 t.i.d. and diclofenac 75 mg b.i.d. will be sent to the pharmacy. Vitamin compliance and nutrition were discussed and enforced. I did highly encourage her to use exercise bands to increase the strength in her lower extremities. We will see her in three months' time, unless otherwise indicated, and patient agrees. [facility] 05-11-2022 Note CONSULTATION CONSULTATION DATE: 05/11/2022 This [...] 150. Medications include Lyrica 300 mg b.i.d., Spofford 5/325 t.i.d., diclofenac 75 mg b.i.d. and [...] her medications today. We will maintain Lyrica, Spofford and diclofenac at the set dose and frequency. We will follow-up in the clinic in three months' time. The patient is in agreement to this. Vitamin importance and nutrition were discussed. [facility] 04-20-2022 Note CONSULTATION CONSULTATION DATE: 04/20/2022 HISTORY [...] medications include Tylenol, Lyrica 300 mg b.i.d., Spofford 5/325 t.i.d., amitriptyline, diclofenac and duloxetine. Patient's [...] clinic. [facility] 03-08-2022 Evaluation note Encounter Date Diagnosis Assessment [...] to the DANIEL. Thrombocytopenia is unclear etiology. [facility] 08-15-2022 Evaluation note* Encounter Date Diagnosis [...] follow with Dr. Odonnell and Dr. Vargas. [facility] 08-01-2022 Hospital Discharge instructions Patient Education [...] fried and sweet foods. General instructions Take [id number]-slrmtem and prescription medicines only as told by [...] 04/21/2010 Document Revised: 10/16/2019 Document Reviewed: 07/11/2018 [employer] Patient Education 2020 [employer]. Follow Up Care 01/05/2022 12:02:03 With:REGLA PHIPPS, Elbert Joya, URL Address: [facility] [address], [place] [address] [phone] When:Within 6 Month(s) Comments:w/ repeat CT A/P [facility] Wilfredo 07-14-2022 NoteCONSULTATION PROCEDURE DATE: 01/19/2022 [...] pattern and the patient tolerated it well. [facility] Signed and Approved by: GIL VALENZUELA . 01/27/2022 14:15:00[facility]07-14-2022 NoteCONSULTATION CONSULTATION DATE: 01/19/2022 This is [...] today. Medications include Lyrica 300 mg b.i.d., Spofford 5/325 t.i.d., diclofenac 75 mg b.i.d. and [...] in three months' time unless otherwise indicated. [facility] Signed and Approved by: GIL VALENZUELA . 01/27/2022 14:15:00[facility] Future Appointments Appointment Date:08/14/2022 09:15:00 AM Scheduled Provider:Elbert VARGAS MD Location:[facility] Appointment Type:URO Office Visit [facility] evaluation + Plan note Future Appointments Appointment Date:04/22/2024 10:00:00 AM Scheduled Provider:SARAH VEGA PA-C Location:[facility] Appointment Type:URO Office Visit [facility] evaluation note* Diagnosis Type 2 diabetes mellitus with unspecified complications ([facility]) Edema, unspecified Edema [facility] Diagnosis Vaginal yeast infection- Primary Candidiasis of vulva and vagina [facility] Diagnosis Primary hypertension ([facility])- Primary Unspecified essential hypertension Insomnia Insomnia, unspecified Type 2 diabetes mellitus with complication, with long-term current use of insulin ([facility]/HCC) Non-seasonal allergic rhinitis, unspecified trigger Type 2 diabetes mellitus with unspecified complications (CMS/HCC) Anxiety and depression ([facility]) Gastro-esophageal reflux disease without esophagitis Edema, unspecified Edema Diabetic polyneuropathy associated with type 2 diabetes mellitus ([facility]/HCC) Chronic obstructive pulmonary disease, unspecified (CMS/HCC) Pulmonary [...] History sepsis 2010 Hospitalization History SEE ABOVE [facility] Hospital course Narrative No data available for this section [facility] progress note No data available for this section [facility] reason for referral (narrative) , Referral to Dr. Cortés Referred by: REGLA PHIPPS, Elbert Joya [facility] Advance Directives No Advanced Directives Records FoundDocuments on File Type Date Recorded Patient Housing Case Manager Expl anation Advance Directives and Living Will Power of Sales And Service Advisor Summary Purpose Family History No Family History Records FoundNo Family History Records FoundNo Family History Records FoundNo Family History Records FoundNo Family History Records FoundNo Family History Records Found Additional Source Comments INFORMATION SOURCE (unrecogn ized section and content) DATE CREATED AUTHOR 10/30/2019 [facility] DATE CREATED AUTHOR AUTHOR'S ORGANIZ ATION 09/15/2020 [facility] DATE CREATED AUTHOR AUTHOR'S ORGANIZ ATION 12/19/2022 [facility] DATE CREATED AUTHOR AUTHOR'S ORGANIZ ATION 11/16/2023 [facility] DATE CREATED AUTHOR AUTHOR'S ORGANIZ ATION 04/15/2024 [facility] EPIC DATE CREATED AUTHOR AUTHOR'S ORGANIZ ATION 05/06/2024 [facility] Care Team (unrecognized sect ion and content) Final Finisher Relationship Specialty Start Date End Date Ty Amin MD PCP - General Family Medicine 01/05/23 Final Finisher Relationship Specialty Start Date End Date Ty Amin MD PCP - General Family Medicine 01/05/23 Final Finisher Relationship Specialty Start Date End Date Ty Amin MD [address] [place] [phone] PCP - General Family Medicine 09/20/23 Mckayla Blas NP [address] [place] [phone] PCP - [facility] 09/07/23 09/05/90 Mckayla Blas NP [address] [place] [phone] Nurse Practitioner Family Medicine 09/20/23 Final Finisher Relationship Specialty Start Date End Date Ty Amin MD [address] [place] [phone] PCP - General Family Medicine 09/20/23 Mckayla Blas NP [address] [place] [phone] [facility] 09/07/23 09/05/90 Mckayla Blas NP [address] [place] [phone] Nurse Practitioner Family Medicine 09/20/23 REASON FOR [...] BE BASED ON THE PRIMARY CLINICAL RECORDS. [facility]. provides no warranty or guarantee of the accuracy or completeness of information in this document.
[2024-05-12 10:45] LABS: Estimated GFR (African America >60 (>=60 mL/min/1.73m^2); Estimated GFR (Non-African Ame >60 (>=60 mL/min/1.73m^2)
== END 2024-05-12 08:31 | disposition home or self-care (01) ==
LOC: CT 08:31
PROVIDERS: PCP Nurse Practitioner; Visit Provider Physician Assistant
DX: M51.369 Other intervertebral disc degeneration, lumbar region without mention of lumbar back pain or lower extremity pain (principal); M48.062 Spinal stenosis, lumbar region with neurogenic claudication; E27.8 Other specified disorders of adrenal gland
CPT/HCPCS: 36415; 72148; 74177; 82565; Q9967

== ENCOUNTER 2024-05-12 08:37 | Outpatient (OUT) | payer MEDICARE, OTHER, SELFPAY ==
--- NOTE | 2024-05-12 08:42 | MR_ITS ---
[address] [address] Patient Name: SINA NICHOLE MRN: [id number] date: 1970 Sex: F Assigned Patient Location: MRI Current Patient Location: CT Accession/Order Number: [id number] Exam Date: 05/12/2024 09:21 Report Date: 05/12/2024 14:41 At the request of: CELESTINA CHIN Procedure: MR lumbar spine wo con EXAMINATION: MR lumbar spine wo con HISTORY: Lumbar Stenosis With Neuro Claudication COMPARISON: No relevant comparison available. TECHNIQUE: A variety of imaging planes and parameters were utilized for visualization of suspected pathology. FINDINGS: For the purposes of numbering, sagittal T2 image # 8 extends from the T11 vertebral body superiorly to the S3 level inferiorly. PARASPINAL AREA: Normal with no visible mass. BONES: No acute fracture or dislocation. No bone edema. 5 mm anterolisthesis of L4 on L5 CORD/CAUDA EQUINA: Normal caliber, contour, and signal intensity. DISC LEVELS: 12-L1: No significant disc/facet abnormality, spinal stenosis, or foraminal stenosis. L1-L2: No significant disc/facet abnormality, spinal stenosis, or foraminal stenosis. L2-L3: No significant disc/facet abnormality, spinal stenosis, or foraminal stenosis. L3-L4: Moderate to severe disc space narrowing and disc desiccation with endplate sclerosis. Posterior subligamentous disc herniation extending posteriorly up to 3.1 mm with inferior migration 4.5 mm. Moderate to severe ligamentum flavum hypertrophy and facet osteoarthropathy. Moderate narrowing of the central canal. Moderate to severe right and mild left foraminal stenosis L4-L5: 5 mm anterolisthesis of L5 on S1 with resultant bulge/pseudobulge. Moderate ligamentum flavum hypertrophy and facet osteophytes arthropathy. Severe central canal stenosis. Moderate to severe right and no left foraminal stenosis L5-S1: Moderate to severe disc space narrowing. Large posterior disc herniation of the protrusion type extending up to 6.6 mm. Bilateral facet osteoarthropathy. Mild narrowing of the central canal . No right and moderate left foraminal stenosis MR/MR lumbar spine wo con IMPRESSION: Extensive degenerative changes with disc herniations resulting in central and foraminal stenosis as detailed above Electronically authenticated by: MARYANNE GARDNER Date: 05/12/2024 14:41
== END 2024-05-12 08:38 | disposition home or self-care (01) ==
LOC: MRI 08:37
PROVIDERS: PCP Nurse Practitioner; Visit Provider Nurse Practitioner
DX: M48.062 Spinal stenosis, lumbar region with neurogenic claudication (principal); M51.369 Other intervertebral disc degeneration, lumbar region without mention of lumbar back pain or lower extremity pain
CPT/HCPCS: 72148

== ENCOUNTER 2024-05-21 08:38 | Outpatient (OUT) | payer MEDICARE, OTHER, SELFPAY ==
--- OUTSIDE RECORDS SUMMARY | 2024-05-21 08:54 | XMS_ITS | CCD ---
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 Name Role Phone James Benavidez Primary Care Provider [phone] JAMES BENAVIDEZ Primary Care Unavailable SHENDGE, VITHAL Admitting Unavailable SHENDGE, VITHAL Attending Unavailable AICHHOLZ, MCKAYLA Primary Care Unavailable AICHHOLZ, MCKAYLA Referring Unavailable AICHHOLZ, MCKAYLA J Primary Care Physician Tico, Stephanie Unavailable OLE RAMIREZ Attending Unavailable OLE RAMIREZ Consulting Unavailable AICHHOLZ, MANAGER ELIGIBILITY MCKAYLA Primary Care Unavailable OLE RAMIREZ Admitting Unavailable ANTONY SHRESTHA Consulting Unavailable ALONDRA ., UMBERTO Admitting Unavailable ALONDRA ., UMBERTO Attending Unavailable AICHHOLZ, MANAGER ELIGIBILITY MCKAYLA Primary Care Unavailable AFSANEH Loera, DR BOLANOS Consulting Unavailable MARYANNE POWER Consulting Unavailable GLENN KERR Consulting Unavailable YOMAIRA KERR Consulting Unavailable HATTIE GOFF Consulting Unavailable ALONDRA ., UMBERTO Consulting Unavailable TICO, STEPHANIE Attending Unavailable TICO, STEPHANIE Consulting Unavailable AICHHOLZ, MANAGER ELIGIBILITY MCKAYLA Primary Care Unavailable TICO, STEPHANIE Admitting Unavailable REGLA ., DR DUMONT Admitting Unavailable AICHHOLZ, MANAGER ELIGIBILITY MCKAYLA Primary Care Unavailable REGLA ., DR DUMONT Attending Unavailable ARAUZ ., DR DUMONT Consulting Unavailable COLLIN HUERTAS Consulting Unavailable CECILIA KAUFMAN Admitting Unavailable CECILIA KAUFMAN Attending Unavailable AICHHOLZ, MANAGER ELIGIBILITY MCKAYLA Primary Care Unavailable RAFAEL GONGORA Attending Unavailable RAFAEL GONGORA Admitting Unavailable AICHHOLZ, MANAGER ELIGIBILITY MCKAYLA Primary Care Unavailable AICHHOLZ, MANAGER ELIGIBILITY MCKAYLA Admitting Unavailable AICHHOLZ, MANAGER ELIGIBILITY MCKAYLA Primary Care Unavailable AICHHOLZ, MANAGER ELIGIBILITY MCKAYLA Attending Unavailable AICHHOLZ, MANAGER ELIGIBILITY MCKAYLA Consulting Unavailable LAKSHMIPATHY ., NARENDRANATH Attending Anette vailable LAKSHMIPATHY ., NARENDRANATH Consulting Anette vailable LAKSHMIPATHY ., NARENDRANATH Admitting Anette vailable AICHHOLZ, MANAGER ELIGIBILITY MCKAYLA Primary Care Unavailable VALENZUELA ., GIL Consulting Unavailable MORTENSEN ., DR CHAPARRO Aguillon Attending Unavailable MORTENSEN ., DR CHAPARRO Aguillon Admitting Unavailable AICHHOLZ, MANAGER ELIGIBILITY MCKAYLA Primary Care Unavailable VALENZUELA ., GIL Consulting Unavailable MORTENSEN ., DR CHAPARRO Aguillon Admitting Unavailable AICHHOLZ, MANAGER ELIGIBILITY MCKAYLA Primary Care Unavailable MORTENSEN ., DR CHAPARRO Aguillon Attending Unavailable HALKER ., SUBHASH Consulting Unavailable LAKSHMIPATHY ., NARENDRANATH Admitting Anette vailable LAKSHMIPATHY ., NARENDRANATH Attending Anette vailable AICHHOLZ, MANAGER ELIGIBILITY MCKAYLA Primary Care Unavailable MORTENSEN ., DR CHAPARRO Aguillon Attending Unavailable MORTENSEN ., DR CHAPARRO Aguillon Admitting Unavailable VALENZUELA ., GIL Consulting Unavailable AICHHOLZ, MANAGER ELIGIBILITY MCKAYLA Primary Care Unavailable VALENZUELA ., GIL Consulting Unavailable MORTENSEN ., DR CHAPARRO Aguillon Attending Unavailable MORTENSEN ., DR CHAPARRO Aguillon Admitting Unavailable AICHHOLZ, MANAGER ELIGIBILITY MCKAYLA Primary Care Unavailable HATTIE BRODERICK Attending Unavailable HATTIE BRODERICK Admitting Unavailable AICHHOLZ, MANAGER ELIGIBILITY MCKAYLA Primary Care Unavailable AICHHOLZ, MANAGER ELIGIBILITY MCKAYLA Admitting Unavailable AICHHOLZ, MANAGER ELIGIBILITY MCKAYLA Consulting Unavailable AICHHOLZ, MANAGER ELIGIBILITY MCKAYLA Primary Care Unavailable AICHHOLZ, MANAGER ELIGIBILITY MCKAYLA Attending Unavailable AICHHOLZ, MANAGER ELIGIBILITY MCKAYLA Primary Care Unavailable MISC, DR LESLIE Admitting Unavailable MISC, DR LESLIE Attending Unavailable MISC, DR LESLIE Consulting Unavailable DIAB ., MARIANO Admitting Unavailable DIAB ., MARIANO Attending Unavailable DIAB ., MARIANO Consulting Unavailable AICHHOLZ, MANAGER ELIGIBILITY MCKAYLA Primary Care Unavailable RASTEGAR, RICCO Consulting Unavailable AICHHOLZ, MANAGER ELIGIBILITY MCKAYLA Admitting Unavailable AICHHOLZ, MANAGER ELIGIBILITY MCKAYLA Primary Care Unavailable AICHHOLZ, MANAGER ELIGIBILITY MCKAYLA Attending Unavailable AICHHOLZ, MANAGER ELIGIBILITY MCKAYLA Consulting Unavailable DR PATRICIA VELOZ Consulting Unavailable TAMLYN ., CECILIA Attending Unavailable TAMLYN ., CECILIA Admitting Unavailable DR PATRICIA VELOZ Consulting Unavailable AICHHOLZ, MANAGER ELIGIBILITY MCKAYLA Primary Care Unavailable TAMLYN ., CECILIA Consulting Unavailable MORTENSEN ., DR CHAPARRO Aguillon Attending Unavailable FESTUS ., DR CHAPARRO Aguillon Consulting Unavailable FESTUS ., DR CHAPARRO Aguillon Admitting Unavailable AICHHOLZ, MANAGER ELIGIBILITY MCKAYLA Primary Care Unavailable HATTIE BRODERICK Attending Unavailable HATTIE BRODERICK Consulting Unavailable HATTIE BRODERICK Admitting Unavailable AICHHOLZ, MANAGER ELIGIBILITY MCKAYLA Primary Care Unavailable HATTIE BAUTISTA Unavailable AICHHOLZ, SAYDA MCKAYLA Admitting Unavailable AICHHOLZ, MANAGER ELIGIBILITY MCKAYLA Attending Unavailable AICHHOLZ, MANAGER ELIGIBILITY MCKAYLA Consulting Unavailable AICHHOLZ, MANAGER ELIGIBILITY MCKAYLA Primary Care Unavailable Ty Amin MD Primary Care Provider BHARAT AGUILAR Attending Unavailable AICHHOLZ, MCKAYLA Attending Unavailable AICHHOLZ, MCKAYLA Attending Unavailable AICHHOLZ, MCKAYLA Attending Unavailable AICHHOLZ, MCKAYLA Attending Unavailable AICHHOLZ, MCKAYLA Attending Unavailable AICHHOLZ, MCKAYLA Attending Unavailable Ty Amin MD Primary Care Provider [phone] Aichholz CALENDER LET OFF OPERATOR, Mckayla Unavailable Aichholz CALENDER LET OFF OPERATOR, Mckayla Unavailable SARAH VEGA Attending Unavailable SARAH VEGA Attending Unavailable Allergies Allergy Classification Reported Allergen(s) Allergy Type Date of Onset Reaction(s) Facility (1 source) No Known Medication Allergies; Translations: [No Known Medication Allergies] Propensity to adverse reactions (disorder) [facility] Repository Medications Current Medications Medication Drug Class(es) Dates Sig (Normalized) Sig (Original) acetaminophen 325 mg / HYDROcodone bitartrate 5 mg oral tablet (10 sources) Opioid Agonist Start: 02-06-2022 acetaminophen-hydr ocodone 325 mg-5 mg oral tablet Refill(s) 0 Start Date: 02/06/22 Status: Ordered HYDROcodone-acet aminophen (Orchard) 5-325 MG tablet 1 tablet 3 (three) times a day as needed for severe pain. Active take 1 tablet by vandana twice daily as needed Orchard 5-325 MG 1 tablet as needed Orally TWICE A DAY Active albuterol 0.83 mg/ml inhalation solution (16 sources) beta2-Adrenergic Agonist Start: 02-06-2022 albut gilbert [...] / ipratropium bromide 0.167 mg/ml inhalation solution (4 sources) Anticholinergic, beta2-Adrenergic Agonist ipratropium-albutero l (Duo-Neb) 0.5-2.5 mg/3 mL nebulizer solution Daily as needed Active amitriptyline hydrochloride 25 mg oral tablet (12 sources) Tricyclic Antidepressant Start: 2023 End: 2024 take 1 tablet by mouth at bedtime amitriptyline (Elavil) 25 MG tablet Indications: Insomnia Take 1 tablet (25 mg) by mouth at bedtime 90 tablet 1 04/14/2024 07/13/2024 Active Start: 02-06-2022 amitriptyline 25 mg Tab Refills(s) 0 Start Date: 02/06/22 Status: Ordered aspirin 81 mg chewable tablet (8 sources) Platelet Aggregation Inhibitor, Nonsteroidal Anti-inflammatory Drug Start: 11-01-2023 End: 07-13-2024 aspirin 81 MG chewable tablet Indications: Type 2 diabetes mellitus with complication, with long-term current use of insulin ([facility]) Chew 1 tablet (81 mg) [...] Active cetirizine hydrochloride 10 mg oral tablet (8 sources) Histamine-1 Receptor Antagonist Start: 11-01-2023 End: [...] 0 Active dapagliflozin 10 mg oral tablet (9 sources) Sodium-Glucose Cotransporter 2 Inhibitor Start: 01-17-2024 [...] sodium 75 mg delayed release oral tablet (10 sources) Nonsteroidal Anti-inflammatory Drug Start: 02-06-2022 diclofenac sodium 75 mg Oral EC Tab Refills(s) 0 Start Date: 02/06/22 Status: Ordered 0.5 ML dulaglutide 9 MG/ML Auto-Injector [Trulicity] (4 sources) GLP-1 Receptor Agonist Start: 02-06-2022 Trkji ty Pen 4.5 mg/0.5 mL subcutaneous solution [...] DULoxetine 60 mg delayed release oral capsule (11 sources) Serotonin and Norepinephrine Reuptake Inhibitor Start: [...] Status: Ordered ergocalciferol 1.25 mg oral capsule (6 sources) Provitamin D2 Compound Start: 04-06-2024 take 1 capsule by mouth every week ergocalciferol (Vitamin D2) 1.25 MG (89772 UT) capsule Indications: Vitamin D deficiency, unspecified TAKE 1 CAPSULE BY MOUTH ONE TIME PER WEEK 12 capsule 1 04/06/2024 Active take 1 capsule by mouth every we ek ergocalciferol (Vitamin D-2) 1.25 MG (90545 UT) capsule Take 1.25 mg by mouth [...] Discontinued (Reorder) furosemide 40 mg oral tablet (18 sources) Loop Diuretic Start: 04-06-2024 End: 07-05-2024 [...] afternoon as needed 90 tablet 1 02/08/2024 Active Start: 02-06-2022 furosemide 20 mg Tab [...] Glucose Blood (ACCU-CHEK STEPHANY VA PLUS ) (6 sources) Glucose Blood (A CCU-CHEK JAQUI PLUS ) 4 (four) times a day. Active Glucose Blood (A CCU-CHEK JAQUI PLUS ) 4 (four) times a day. 0 Active hydrALAZINE hydrochloride 25 mg oral tablet (6 sources) Arteriolar Vasodilator Start: 09-13-2023 End: 07-13-2024 [...] ml insulin glargine 100 unt/ml pen injector (15 sources) Insulin Analog Start: 10-30-2023 End: 04-14-2024 [...] ml insulin lispro 100 unt/ml pen injector (6 sources) Insulin Analog Start: 10-06-2023 End: 04-14-2024 HumaLOG KWIKPEN 100 UNIT/ML injection Inject under the skin 10/06/2023 04/14/2024 Discontinued (Therapy completed) inject 1 [IU] by sub cutaneous injection three times daily before mealtime Insulin Lispro (HUMALOG KWIKPEN SC) Inject under the skin 3 (three) times a day before meals 8-10-12 units before meals and sliding scale Active lisinopril 20 mg oral tablet (12 sources) Angiotensin Converting Enzyme Inhibitor Start: 11-01-2023 [...] (Therapy completed) Mounjaro 15 MG/0.5ML solution auto-injector (4 sources) Start: 2023 Mounjaro 15 MG/0.5ML solution auto-injector Inject 15 mg as directed every 7 (seven) days 02/18/2024 Active nortriptyline 50 mg oral capsule (4 sources) Tricyclic Antidepressant take 1 capsule by mouth once daily nortriptyline (Pamelor) 50 MG capsule Take 1 capsule by mouth Daily Active omeprazole 20 mg delayed release oral capsule (8 sources) Proton Pump Inhibitor Start: 2023 End: [...] crush or chew. . 0 Active Oxygen (4 sources) oxygen (O2) gas Inhale 2 L/min continuously via nasal canula Active potassium chloride 10 meq extended release oral capsule (13 sources) Start: 02-06-2022 End: 07-13-2024 take 1 [...] day Active pregabalin 300 mg oral capsule (14 sources) Start: 11-13-2023 End: 05-14-2024 take 1 [...] Status: Ordered roflumilast 0.5 mg oral tablet (6 sources) Phosphodiesterase 4 Inhibitor Start: 01-04-2024 End: 07-13-2024 take 1 tablet by mouth once daily Roflumilast 500 MCG tablet Indications: Chronic obstructive pulmonary disease, unspecified (CMS/HCC) Take 1 tablet by mouth Daily 90 tablet 1 04/14/2024 07/13/2024 Active simvastatin 10 mg oral tablet (6 sources) HMG-CoA Reductase Inhibitor Start: 04-06-2024 End: [...] 0 Active ubrogepant 100 mg oral tablet (4 sources) take 1 tablet by mouth every twenty-four hours as needed Ubrogepant (Ubrelvy) 100 MG tablet Take 100 mg by mouth Daily as needed Active varenicline (4 sources) Partial Cholinergic Nicotinic Agonist Start: 12-05-19 [...] LT FOOT] Onset: 3 Chronic Anxiety disorders (8 sources) Mixed anxiety and depressive disorder; Translations: [Anxiety disorder, unspecified] Onset: 4 07-10-2023 Chronic Asthma (8 sources) Asthma; Translations: [Unspecified asthma, uncomplicated] Onset: 4 02-06-2022 Chronic Cancer of cervix (4 sources) Malignant tumor of cervix; Translations: [Malignant neoplasm of cervix uteri, unspecified] Onset: 4 09-17-2023 Chronic Chronic kidney disease (5 sources) Chronic kidney disease; Translations: [Chronic kidney disease, unspecified] Onset: 2 Resolved: 2 Chronic Chronic obstructive pulmonary disease and bronchiectasis (20 sources) Pulmonary emphysema; Translations: [Chronic obstructive pulmonary [...] 2 02-06-2022 Chronic Disorders of lipid metabolism (9 sources) Pure hypercholesterolemia, unspecified; Translations: [Hyperlipidemia, unspecified] Onset: 2 Chronic Esophageal disorders (7 sources) Gastro-esophageal reflux disease without esophagitis; Translations: [Gastroesophageal reflux disease] Onset: 3 09-17-2023 Chronic Essential hypertension (17 sources) Hypertensive disorder; Translations: [Essential (primary) hypertension] Onset: 3 02-06-2022 Chronic Genitourinary symptoms and ill-defined conditions (8 sources) Mixed incontinence; Translations: [Incontinence] Onset: 2 Chronic Gout and other crystal arthropathies (4 sources) Gout; Translations: [Gout, unspecified] Onset: 8 [...] AND COLITIS UNS] Onset: 3 Episodic Osteoarthritis (17 sources) Arthritis; Translations: [Unspecified osteoarthritis, unspecified site] Onset: 2 02-06-2022 Chronic Other aftercare (1 source) Other half-way (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 therapy; Translations: [OTH WHEEL ALIGNMENT TECHNICIAN CURRENT DRUG THERAPY] Onset: 3 Episodic Other aftercare (1 source) termite technician (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; Translations: [WHEEL ALIGNMENT TECHNICIAN CURRENT USE OF ASPIRIN] Onset: 3 Episodic Other aftercare (1 source) penitentiary (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; Translations: [WHEEL ALIGNMENT TECHNICIAN CURRENT USE OF INSULIN] Onset: 3 Episodic Other and ill-defined heart disease (2 sources) Cardiomegaly; Translations: [Cardiomegaly] Onset: 4 Chronic Other and ill-defined heart disease (4 sources) Cardiomegaly; Translations: [Cardiomegaly] Onset: 8 09-17-2023 [...] gland] Onset: 2 Chronic Other endocrine disorders (6 sources) Adrenal mass; Translations: [Disorder of adrenal [...] Chronic Other nutritional; endocrine; and metabolic disorders (4 sources) Excess panniculus of abdomen; Translations: [Localized adiposity] Onset: 8 09-17-2023 Chronic Other screening for suspected conditions (not mental disorders or infectious disease) (1 source) Encounter for screening mammogram for malignant neoplasm of breast; Translations: [ENC SCR MAMMO MALIG NEOPLASM BREAST] Onset: 3 Episodic Other skin disorders (5 sources) Hyperpigmentation of skin; Translations: [Disorder of pigmentation, unspecified] Onset: 4 04-14-2024 Episodic Other upper respiratory disease (6 sources) Allergic rhinitis; Translations: [Other allergic rhinitis] Onset: 4 11-01-2023 Chronic Peripheral and visceral atherosclerosis (5 sources) Peripheral vascular disease, unspecified; Translations: [Peripheral vascular disease, unspecified] Onset: 3 09-17-2023 Chronic Pulmonary heart disease (4 sources) Pulmonary hypertension; Translations: [Pulmonary hypertension, unspecified] Onset: 4 09-17-2023 Chronic Residual codes; unclassified (1 source) Obstructive sleep apnea (adult) (pediatric); Translations: [OBSTRUCTIVE SLEEP APNEA] Onset: 3 Chronic Residual codes; unclassified (6 sources) Obstructive sleep apnea syndrome; Translations: [Obstructive [...] HX MALIGNANT NEOPLASM UNS] Onset: 3 Episodic Substance-related disorders (5 sources) Nicotine dependence; Translations: [Nicotine dependence, unspecified, uncomplicated] Onset: 2 Chronic Comment on above: Added secondary to d ocumentation in Social History. Unclassified (1 source) NURSING HOME INJECT NONINSULN ANTIDIAB; Translations: [NURSING HOME INJECT NONINSULN ANTIDIAB] Onset: 3 Unclassified (3 [...] LT FOOT] Onset: 09-01-2022 Episodic Administrative/social admission (6 sources) Patient encounter status; Translations: [Dietary counseling and surveillance] Onset: 11-01-2023 11-01-2023 Episodic Calculus of urinary tract (8 sources) Kidney stone; Translations: [Calculus of kidney] Onset: 02-06-2022 Episodic E Codes: Natural/environment (1 source) Other and unspecified overexertion or strenuous movements or postures, initial encounter; Translations: [OTH AND UNS OVREXRT/STRN MVMT/POS INT] Onset: 12-27-2021 Episodic Genitourinary symptoms and ill-defined conditions (14 sources) Proteinuria; Translations: [Proteinuria, unspecified] Onset: 02-06-2022 Resolved: 03-08-2022 Episodic Headache; including migraine (6 sources) Headache; Translations: [Headache disorder] Onset: 01-17-2024 02-06-2022 Episodic Immunizations and screening for infectious disease (5 sources) Encounter for screening for other infectious and parasitic diseases; Translations: [Anti-nuclear factor positive] Onset: 09-16-2020 09-17-2023 Episodic Mood disorders (5 sources) Mood disorders; Translations: [DEPRESSION UNSPECIFIED] Onset: 12-05-2022 01-17-2024 Mycoses (15 sources) Tinea unguium; Translations: [Candidiasis of vagina] Onset: 07-26-2022 Episodic Other connective tissue disease (4 sources) Other muscle spasm; Translations: [OTHER MUSCLE SPASM] Onset: 01-19-2022 Episodic Other diseases of veins and lymphatics (4 sources) Vascular insufficiency; Translations: [Venous insufficiency (chronic) (peripheral)] Onset: 09-17-2023 09-17-2023 Episodic Other hematologic conditions (1 source) Secondary polycythemia Onset: 03-08-2022 Resolved: 03-08-2022 Episodic Other nervous system disorders (4 sources) Reduced mobility; Translations: [Other abnormalities of gait and mobility] Onset: 09-17-2023 09-17-2023 Episodic Other non-traumatic joint disorders (1 source) Effusion, left knee; Translations: [EFFUSION LEFT KNEE] Onset: 07-26-2022 Episodic Other non-traumatic joint disorders (1 source) Pain in left knee; Translations: [PAIN IN LEFT KNEE] Onset: 07-26-2022 Episodic Other non-traumatic joint disorders (4 sources) Pain in right knee; Translations: [Pain in joint, lower leg] Onset: 09-17-2023 09-17-2023 Episodic Other nutritional; endocrine; and metabolic disorders (10 sources) Severe obesity; Translations: [Morbid (severe) obesity due to excess calories] Onset: 07-10-2023 Resolved: 04-14-2024 07-10-2023 Chronic Other skin disorders (1 source) Nail dystrophy; Translations: [NAIL DYSTROPHY] Onset: 09-01-2022 Episodic Other skin disorders (1 source) Corns and callosities; Translations: [CORNS AND CALLOSITIES] Onset: 09-01-2022 Episodic Other skin disorders (1 source) Xerosis cutis; Translations: [XEROSIS CUTIS] Onset: 09-01-2022 Episodic Otitis media and related conditions (4 sources) Acute suppurative otitis media without spontaneous rupture of ear drum; Translations: [Acute suppurative otitis media without spontaneous rupture of ear drum, left ear] Onset: 01-17-2024 01-17-2024 Episodic Pancreatic disorders (not diabetes) (5 sources) Acute pancreatitis without necrosis or infection, unspecified; Translations: [Pancreatitis] Onset: 10-09-2022 09-17-2023 Episodic Pneumonia (except that caused by tuberculosis or sexually transmitted disease) (4 sources) Pneumonia; Translations: [Pneumonia, unspecified organism] Onset: 09-17-2023 09-17-2023 Episodic Residual codes; unclassified (1 source) Localized edema; Translations: [LOCALIZED EDEMA] Onset: 09-01-2022 Episodic Residual codes; unclassified (12 sources) Edema; Translations: [Edema, unspecified] Onset: 07-10-2023 Resolved: 07-10-2023 08-14-2023 Episodic Residual codes; unclassified (8 sources) Bilateral lower limb edema; Translations: [Localized edema] Onset: 07-10-2023 07-10-2023 Episodic Residual codes; unclassified (6 sources) Insomnia; Translations: [Insomnia, unspecified] Onset: 09-17-2023 09-17-2023 Episodic Residual codes; unclassified (6 sources) Tobacco user; Translations: [Tobacco use] Onset: 09-17-2023 09-17-2023 Episodic Residual codes; unclassified (4 sources) Edema of lower extremity; Translations: [Localized edema] Onset: 09-17-2023 Resolved: 09-17-2023 09-17-2023 Episodic Skin and subcutaneous tissue infections (5 sources) Cellulitis of right lower limb; Translations: [Cutaneous abscess of left axilla] Onset: 07-18-2022 Episodic Spondylosis; intervertebral disc disorders; other back problems (4 sources) Lumbar radiculopathy; Translations: [Radiculopathy, lumbar region] [...] Test Name Value Interpretation Reference Range Facility [facility] 05-12-2024 Creatinine [Mass/Vol] 0.92 mg/dL 0.55 - 1.02 mg/dL [facility] GFR/1.73 sq M.predicted CKD-EPI (S/P/Bld) [Vol rate/Area] >60 >=60 mL/min/1.73m 2 [facility] EGFR-NON AF SURINAMESE >60 >=60 mL/min/1.73m 2 [facility] Health[facility] e Office Visiton 11-14-2023 Follow-up visit [id number] Mitzi Macias 1970 F Date Provider Department Center 11/14/2023 BHARAT NICOLE [facility] Family History Problem Relation Age of Onset Heart attack Paternal Grandmother Family Status - Relation Status Age at Paternal Grandmother Level of Service:32320 SD OFFICE/OUTPATIENT NEW LOW MDM 30 MINUTES Normal [facility] CBC AUTO DIFFon 12-06-2022 BASO # 0.0 103/ul Normal 0.0-0.1 [facility] Comment on above: Performed By: #### C BC #### [facility] [address] [address] [address] Ashlie Hills Basophils/100 WBC (Bld) 0.1 % Critically low 0.2-2.0 [facility] Comment on above: Performed By: #### C BC #### [facility] [address] [address] [address] Ashlie Hills EO # 0.0 103/ul Normal 0.0-0.7 [facility] Comment on above: Performed By: #### C BC #### [facility] [address] [place] [address] Dr. Ashlie Hills Eosinophils/100 WBC (Bld) 0.0 % Critically low 0.9-7.0 [facility] Comment on above: Performed By: #### C BC #### [facility] [address] [place] [address] Dr. Ashlie Hills Erythrocyte distribution width (RBC) [Ratio] 14.9 % Normal 11.0-15.0 [facility] Comment on above: Performed By: #### C BC #### [facility] [address] [place] [address] Dr. Ashlie Hills Hematocrit (Bld) [Volume fraction] 46.2 % Normal 36.0-48.0 [facility] Comment on above: Performed By: #### C BC #### [facility] [address] [place] [address] Dr. Ashlie Hills Hemoglobin (Bld) [Mass/Vol] 14.7 g/dL Normal 12.0-16.0 [facility] Comment on above: Performed By: #### C BC #### [facility] [address] [place] [address] Dr. Ashlie Hills IG # 0.06 10e3/ul Critically high 0.00-0.03 [facility] Comment on above: Performed By: #### C BC #### [facility] [address] [place] [address] Dr. Ashlie Hills IG % 0.4 % Normal 0.0-0.5 [facility] Comment on above: Performed By: #### C BC #### [facility] [address] [place] [address] Dr. Ashlie Hills LYMPH # 1.3 103/ul Normal 1.2-3.8 [facility] Comment on above: Performed By: #### C BC #### [facility] [address] [place] [address] Dr. Ashlie Hills Lymphocytes/100 WBC (Bld) 9.4 % Critically low 20.5-60.0 [facility] Comment on above: Performed By: #### C BC #### [facility] [address] [place] [address] Dr. Ashlie Hills MANUAL DIFF REQ NO Normal [facility] Comment on above: Performed By: #### C BC #### [facility] [address] [place] [address] Dr. Ashlie Hills MCH (RBC) [Entitic mass] 28.4 pg Normal 26.7-34.0 [facility] Comment on above: Performed By: #### C BC #### [facility] [address] [place] [address] Dr. Ashlie Hills MCHC (RBC) [Mass/Vol] 31.8 g/dL Normal 29.9-35.2 [facility] Comment on above: Performed By: #### C BC #### [facility] [address] [place] [address] Dr. Ashlie Hills MCV (RBC) [Entitic vol] 89.4 fL Normal 81.0-99.0 [facility] Comment on above: Performed By: #### C BC #### [facility] [address] [place] [address] Dr. Ashlie Hills MONO # 0.5 103/ul Normal 0.3-0.8 [facility] Comment on above: Performed By: #### C BC #### [facility] [address] [place] [address] Dr. Ashlie Hills Monocytes/100 WBC (Bld) 3.4 % Normal 1.7-12.0 [facility] Comment on above: Performed By: #### C BC #### [facility] [address] [place] [address] Dr. Ashlie Hills NEUT # 11.8 103/ul Critically high 1.4-6.5 [facility] Comment on above: Performed By: #### C BC #### [facility] [address] [place] [address] Dr. Ashlie Hills Neutrophils/100 WBC (Bld) 86.7 % Critically high 43.0-75.0 [facility] Comment on above: Performed By: #### C BC #### [facility] [address] [address] [address] Ashlie Hills Platelet mean volume (Bld) [Entitic vol] 12.6 fL Normal 9.5-13.5 [facility] Comment on above: Performed By: #### C BC #### [facility] [address] [address] [address] Ashlie Hills PLT 133 103/ul Critically low 150-450 [facility] Comment on above: Performed By: #### C BC #### [facility] [address] [address] [address] Ashlie Hills RBC 5.17 106/ul Normal 4.20-5.40 [facility] Comment on above: Performed By: #### C BC #### [facility] [address] [place] [address] Dr. Ashlie Hills WBC 13.6 103/ul Critically high 4.0-11.0 [facility] Comment on above: Performed By: #### C BC #### [facility] [address] [place] [address] Dr. Ashlie Hills MAGNESIUMon 12-06-2022 Magnesium [Mass/Vol] 2.2 mg/dL Normal 1.8-2.4 [facility] Comment on above: Performed By: #### I NFLUAB #### [facility] [address] [place] [address] Dr. Ashlie Hills POINT OF CARE GLUCOSEon 11-08 Glucose [Mass/Vol] 340 mg/dL Critically high 74-106 [facility] Comment on above: Performed By: #### P OCGLUC #### [facility] [address] [place] [address] Dr. Ashlie Hills Glucose [Mass/Vol] 276 mg/dL Critically high 74-106 [facility] Comment on above: Performed By: #### C BC #### [facility] [address] [place] [address] Dr. Ashlie Hills Glucose [Mass/Vol] 333 mg/dL Critically high 74-[address] [facility] Comment on above: Performed By: #### C BC #### [facility] [address] [address] [address] Ashlie Hills PROF CHEM 8 (BAS METB)on Anion gap [Moles/Vol] 10.9 mmol/L Normal [facility] Comment on above: Performed By: #### I NFLUAB #### [facility] [address] [place] [address] Dr. Ashlie Hills Calcium [Mass/Vol] 9.3 mg/dL Normal 8.5-10.1 [facility] Comment on above: Performed By: #### I NFLUAB #### [facility] [address] [place] [address] Dr. Ashlie Hills Chloride [Moles/Vol] 103 mmol/L Normal 98-107 [facility] Comment on above: Performed By: #### I NFLUAB #### [facility] [address] [place] [address] Dr. Ashlie Hills CO2 [Moles/Vol] 31.2 mmol/L Normal 21.0-32.0 [facility] Comment on above: Performed By: #### I NFLUAB #### [facility] [address] [place] [address] Dr. Ashlie Hills Creatinine [Mass/Vol] 0.96 mg/dL Normal 0.55-1.02 [facility] Comment on above: Performed By: #### I NFLUAB #### [facility] [address] [place] [address] Dr. Ashlie Hills EGFR-AF SURINAMESE >60 Normal >=60 [facility] Comment on above: Performed By: #### I NFLUAB #### [facility] [address] [place] [address] Dr. Ashlie Hills EGFR-NON AF SURINAMESE >60 Normal >=60 [facility] Comment on above: Performed By: #### I NFLUAB #### [facility] [address] [place] [address] Dr. Ashlie Hills Glucose [Mass/Vol] 288 mg/dL Critically high 74-[address] [facility] Comment on above: Performed By: #### I NFLUAB #### [facility] [address] [place] [address] Dr. Ashlie Hills Potassium [Moles/Vol] 5.1 mmol/L Normal 3.5-5.1 [facility] Comment on above: Performed By: #### I NFLUAB #### [facility] [address] [place] [address] Dr. Ashlie Hills Sodium [Moles/Vol] 140 mmol/L Normal 136-145 [facility] Comment on above: Performed By: #### I NFLUAB #### [facility] [address] [place] [address] Dr. Ashlie Hills Urea nitrogen [Mass/Vol] 30.0 mg/dL Critically high 7.0-18.0 [facility] Comment on above: Performed By: #### I NFLUAB #### [facility] [address] [place] [address] Dr. Ashlie Hills Urea nitrogen/Creatinine [Mass ratio] 31.2 mg/mg Normal [facility] Comment on above: Performed By: #### I NFLUAB #### [facility] [address] [place] [address] Dr. Ashlie Hills CBC AUTO DIFFon 12-05-2022 BASO # 0.0 103/ul Normal 0.0-0.1 [facility] Comment on above: Performed By: #### C BC #### [facility] [address] [place] [address] Dr. Ashlie Hills Basophils/100 WBC (Bld) 0.4 % Normal 0.2-2.0 [facility] Comment on above: Performed By: #### C BC #### [facility] [address] [place] [address] Dr. Ashlie Hills EO # 0.0 103/ul Normal 0.0-0.7 [facility] Comment on above: Performed By: #### C BC #### [facility] [address] [place] [address] Dr. Ashlie Hills Eosinophils/100 WBC (Bld) 0.0 % Critically low 0.9-7.0 [facility] Comment on above: Performed By: #### C BC #### [facility] [address] [place] [address] Dr. Ashlie Hills Erythrocyte distribution width (RBC) [Ratio] 14.8 % Normal 11.0-15.0 [facility] Comment on above: Performed By: #### C BC #### [facility] [address] [place] [address] Dr. Ashlie Hills Hematocrit (Bld) [Volume fraction] 49.9 % Critically high 36.0-48.0 [facility] Comment on above: Performed By: #### C BC #### [facility] [address] [place] [address] Dr. Ashlie Hills Hemoglobin (Bld) [Mass/Vol] 15.7 g/dL Normal 12.0-16.0 [facility] Comment on above: Performed By: #### C BC #### [facility] [address] [place] [address] Dr. Ashlie Hills IG # 0.04 10e3/ul Critically high 0.00-0.03 [facility] Comment on above: Performed By: #### C BC #### [facility] [address] [place] [address] Dr. Ashlie Hills IG % 0.5 % Normal 0.0-0.5 [facility] Comment on above: Performed By: #### C BC #### [facility] [address] [place] [address] Dr. Ashlie Hills LYMPH # 1.1 103/ul Critically low 1.2-3.8 [facility] Comment on above: Performed By: #### C BC #### [facility] [address] [place] [address] Dr. Ashile Hills Lymphocytes/100 WBC (Bld) 12.7 % Critically low 20.5-60.0 [facility] Comment on above: Performed By: #### C BC #### [facility] [address] [place] [address] Dr. Ashlie Hills MANUAL DIFF REQ NO Normal [facility] Comment on above: Performed By: #### C BC #### [facility] [address] [place] [address] Dr. Ashlie Hills MCH (RBC) [Entitic mass] 28.1 pg Normal 26.7-34.0 [facility] Comment on above: Performed By: #### C BC #### [facility] [address] [place] [address] Dr. Ashlie Hills MCHC (RBC) [Mass/Vol] 31.5 g/dL Normal 29.9-35.2 [facility] Comment on above: Performed By: #### C BC #### [facility] [address] [place] [address] Dr. Ashlie Hills MCV (RBC) [Entitic vol] 89.3 fL Normal 81.0-99.0 [facility] Comment on above: Performed By: #### C BC #### [facility] [address] [place] [address] Dr. Ashlie Hills MONO # 0.1 103/ul Critically low 0.3-0.8 [facility] Comment on above: Performed By: #### C BC #### [facility] [address] [place] [address] Dr. Ashlie Hills Monocytes/100 WBC (Bld) 1.3 % Critically low 1.7-12.0 [facility] Comment on above: Performed By: #### C BC #### [facility] [address] [place] [address] Dr. Ashlie Hills NEUT # 7.2 103/ul Critically high 1.4-6.5 [facility] Comment on above: Performed By: #### C BC #### [facility] [address] [place] [address] Dr. Ashlie Hills Neutrophils/100 WBC (Bld) 85.1 % Critically high 43.0-75.0 [facility] Comment on above: Performed By: #### C BC #### [facility] [address] [place] [address] Dr. Ashlie Hills Platelet mean volume (Bld) [Entitic vol] 12.2 fL Normal 9.5-13.5 [facility] Comment on above: Performed By: #### C BC #### [facility] [address] [address] [address] Ashlie Hills PLT 116 103/ul Critically low 150-450 [facility] Comment on above: Performed By: #### C BC #### [facility] [address] [address] [address] Ashlie Hills RBC 5.59 106/ul Critically high 4.20-5.40 [facility] Comment on above: Performed By: #### C BC #### [facility] [id number] Ashlie Hills WBC 8.5 103/ul Normal 4.0-11.0 [facility] Comment on above: Performed By: #### C BC #### [facility] [address] [place] [address] Dr. Ashlie Hills CTA CHEST WO W [...] by: HATTIE GOFF Date: 2022-12-05 01:52 Normal [facility] MAGNESIUMon 12-05-2022 Magnesium [Mass/Vol] 2.1 mg/dL Normal 1.8-2.4 [facility] Comment on above: Performed By: #### P OCGLUC #### [facility] [address] [place] [address] Dr. Ashlie Hills POINT OF CARE GLUCOSEon 11-08 Glucose [Mass/Vol] 293 mg/dL Critically high -106 [facility] Comment on above: Performed By: #### P OCGLUC #### [facility] [address] [address] [address] Ashlie Hills Glucose [Mass/Vol] 269 mg/dL Critically high [facility]106 [facility] Comment on above: Performed By: #### P OCGLUC #### [facility] [address] [place] [address] Dr. Ashlie Hills Glucose [Mass/Vol] 223 mg/dL Critically high [facility]106 [facility] Comment on above: Performed By: #### C VDAGS #### [facility] [address] [address] [address] Ashlie Hills PROF CHEM 8 (BAS METB)on Anion gap [Moles/Vol] 11.6 mmol/L Normal [facility] Comment on above: Performed By: #### P OCGLUC #### [facility] [address] [place] [address] Dr. Ashlie Hills Calcium [Mass/Vol] 9.2 mg/dL Normal 8.5-10.1 [facility] Comment on above: Performed By: #### P OCGLUC #### [facility] [address] [place] [address] Dr. Ashlie Hills Chloride [Moles/Vol] 102 mmol/L Normal 98-107 [facility] Comment on above: Performed By: #### P OCGLUC #### [facility] [address] [address] [address] Ashlie Hills CO2 [Moles/Vol] 28.7 mmol/L Normal 21.0-32.0 [facility] Comment on above: Performed By: #### P OCGLUC #### [facility] [address] [address] [address] Ashlie Hills Creatinine [Mass/Vol] 1.04 mg/dL Critically high 0.55-1.02 [facility] Comment on above: Performed By: #### P OCGLUC #### [facility] [address] [address] [address] Ashlie Hills EGFR-AF SURINAMESE >60 Normal >=60 [facility] Comment on above: Performed By: #### P OCGLUC #### [facility] [address] [address] [address] Ashlie Hills EGFR-NON AF SURINAMESE 56 mL/min/1.73m2 Critically low >=60 [facility] Comment on above: Performed By: #### P OCGLUC #### [facility] [address] [address] [address] Ashlie Hills Glucose [Mass/Vol] 231 mg/dL Critically high 74-106 [facility] Comment on above: Performed By: #### P OCGLUC #### [facility] [address] [address] [address] Ashlie Hills Potassium [Moles/Vol] 4.3 mmol/L Normal 3.5-5.1 [facility] Comment on above: Performed By: #### P OCGLUC #### [facility] [address] [address] [address] Ashlie Hills Sodium [Moles/Vol] 138 mmol/L Normal 136-145 [facility] Comment on above: Performed By: #### P OCGLUC #### [facility] [address] [address] [address] Ashlie Hills Urea nitrogen [Mass/Vol] 17.0 mg/dL Normal 7.0-18.0 [facility] Comment on above: Performed By: #### P OCGLUC #### [facility] [address] [place] [address] Dr. Ashlie Hills Urea nitrogen/Creatinine [Mass ratio] 16.3 mg/mg Normal [facility] Comment on above: Performed By: #### P OCGLUC #### [facility] [address] [place] [address] Dr. Ashlie Hills RESPIRATORY PANEL PLUSon Adenovirus Not detected Normal NOT DETECTED [facility] Comment on above: Performed By: #### C VDAGS #### [facility] [address] [place] [address] Dr. Ashlie Shaffer. Parapertusis Not detected Normal NOT DETECTED [facility] Comment on above: Performed By: #### C VDAGS #### [facility] [address] [place] [address] Dr. Ashlie Hills B. Pertussis Not detected Normal NOT DETECTED [facility] Comment on above: Performed By: #### C VDAGS #### [facility] [address] [place] [address] Dr. Ashlie Hills Chlamydia Pneumoniae Not detected Normal NOT DETECTED [facility] Comment on above: Performed By: #### C VDAGS #### [facility] [address] [place] [address] Dr. Ashlie Hills Coronavirus 229E Not detected Normal NOT DETECTED [facility] Comment on above: Performed By: #### C VDAGS #### [facility] [address] [place] [address] Dr. Ashlie Hills Coronavirus HKU1 Not detected Normal NOT DETECTED [facility] Comment on above: Performed By: #### C VDAGS #### [facility] [address] [place] [address] Dr. Ashlie Hills Coronavirus NL63 Not detected Normal NOT DETECTED [facility] Comment on above: Performed By: #### C VDAGS #### [facility] [address] [place] [address] Dr. Ashlie Hills Coronavirus OC43 Not detected Normal NOT DETECTED [facility] Comment on above: Performed By: #### C VDAGS #### [facility] [address] [place] [address] Dr. Ashlie Hills Influenza A H1 Not detected Normal NOT DETECTED [facility] Comment on above: Performed By: #### C VDAGS #### [facility] [address] [place] [address] Dr. Ashlie Hills Influenza A H1 2009 Not detected Normal NOT DETECTED [facility] Comment on above: Performed By: #### C VDAGS #### [facility] [address] [address] [address] Ashlie Hills Influenza A H3 Not detected Normal NOT DETECTED [facility] Comment on above: Performed By: #### C VDAGS #### [facility] [address] [place] [address] Dr. Ashlie Hills Influenza B Not detected Normal NOT DETECTED [facility] Comment on above: Performed By: #### C VDAGS #### [facility] [address] [place] [address] Dr. Ashlie Hills Metapneumovirus Not detected Normal NOT DETECTED [facility] Comment on above: Performed By: #### C VDAGS #### [facility] [address] [place] [address] Dr. Ashlie Hills Mycoplas. Pneumoniae Not detected Normal NOT DETECTED [facility] Comment on above: Performed By: #### C VDAGS #### [facility] [address] [place] [address] Dr. Ashlie Hills Parainfluenza 1 Not detected Normal NOT DETECTED [facility] Comment on above: Performed By: #### C VDAGS #### [facility] [address] [place] [address] Dr. Ashlie Hills Parainfluenza 2 Not detected Normal NOT DETECTED [facility] Comment on above: Performed By: #### C VDAGS #### [facility] [address] [place] [address] Dr. Ashlie Hills Parainfluenza 3 Detected Abnormal NOT DETECTED [facility] Comment on above: Performed By: #### C VDAGS #### [facility] [address] [place] [address] Dr. Ashlie Hills Parainfluenza 4 Not detected Normal NOT DETECTED [facility] Comment on above: Performed By: #### C VDAGS #### [facility] [address] [place] [address] Dr. Ashlie Hills Rhino/Enterovirus Not detected Normal NOT DETECTED [facility] Comment on above: Performed By: #### C VDAGS #### [facility] [address] [place] [address] Dr. Ashlie Hills RP2 Header 1 RESPIRATORY PANEL: VIRUSES Normal [facility] Comment on above: Performed By: #### C VDAGS #### [facility] [address] [place] [address] Dr. Ashlie Hills RP2 Header 2 RESPIRATORY PANEL: BACTERIA Normal [facility] Comment on above: Performed By: #### C VDAGS #### [facility] [address] [place] [address] Dr. Ashlie Hills RSV Not detected Normal NOT DETECTED [facility] Comment on above: Performed By: #### C VDAGS #### [facility] [address] [place] [address] Dr. Ashlie Hills SARS-CoV-2 (COVID-19) RNA MADDY+probe Ql (Unsp spec) Not detected Normal NOT DETECTED [facility] Comment on above: Performed By: #### C VDAGS #### [facility] [address] [place] [address] Dr. Ashlie Hills XR CHEST 1 Von [...] by: MARYANNE POWER Date: 2022-12-04 22:23 Normal [facility] BLOOD GASES BTYon 12-04-2022 02 MODE ROOM AIR Normal [facility] Comment on above: Performed By: #### C BC #### [facility] [address] [place] [address] Dr. Ashlie Hills ALLENS TEST Positive [facility] Comment on above: Performed By: #### C BC #### [facility] [address] [address] [address] Ashlie Hills Base excess Calc (Bld) [Moles/Vol] 5.4 mmol/L Critically high -2.0-2.0 [facility] Comment on above: Performed By: #### C BC #### [facility] [address] [address] [address] Ashlie Hills BIPAP PRESSURE [facility] Comment on above: Performed By: #### C BC #### [facility] [address] [place] [address] Dr. Ashlie Hills CPAP [facility] Comment on above: Performed By: #### C BC #### [facility] [address] [address] [address] Ashlie Hills FIO2 [facility] Comment on above: Performed By: #### C BC #### [facility] [address] [address] [address] Ashlie Hills HCO3 (Bld) [Moles/Vol] 30.8 mmol/L Critically high 22.0-26.0 [facility] Comment on above: Performed By: #### C BC #### [facility] [address] [place] [address] Dr. Ashlie Hills LPM [facility] Comment on above: Performed By: #### C BC #### [facility] [address] [place] [address] Dr. Ashlie Hills MINUTE VOLUME Normal [facility] Comment on above: Performed By: #### C BC #### [facility] [address] [place] [address] Dr. Ashlie Hills Oxygen (Bld) [Partial pressure] 46.3 mm[Hg] Critically low 80.0-100.0 [facility] Comment on above: Performed By: #### C BC #### [facility] [address] [place] [address] Dr. Ashlie Hills Oxygen saturation in Blood 83.9 % Critically low 95.0-100.0 [facility] Comment on above: Performed By: #### C BC #### [facility] [address] [place] [address] Dr. Ashlie Hills PCO2 54.2 mmHg Critically high 35.0-45.0 [facility] Comment on above: Performed By: #### C BC #### [facility] [address] [place] [address] Dr. Ashlie Hills [facility] Comment on above: Performed By: #### C BC #### [facility] [address] [place] [address] Dr. Ashlie iHlls pH (Bld) 7.363 [pH] Normal 7.350-7.450 [facility] Comment on above: Performed By: #### C BC #### [facility] [address] [place] [address] Dr. Ashlie Hills [facility] Comment on above: Performed By: #### C BC #### [facility] [address] [place] [address] Dr. Ahslie Hills [facility] Comment on above: Performed By: #### C BC #### [facility] [address] [place] [address] Dr. Ashlie Hills PUNCTURE SITE LR [facility] Comment on above: Performed By: #### C BC #### [facility] [address] [place] [address] Dr. Ashlie Hills RATE [facility] Comment on above: Performed By: #### C BC #### [facility] [address] [place] [address] Dr. Ashlie Hills VENT MODE [facility] Comment on above: Performed By: #### C BC #### [facility] [address] [place] [address] Dr. Ashlie Hills [place] Normal [facility] Comment on above: Performed By: #### C BC #### [facility] [address] [place] [address] Dr. Ashlie Hills BNPon 12-04-2022 Natriuretic peptide B (Bld) [Mass/Vol] 76.0 pg/mL Normal <=900.0 [facility] Comment on above: Performed By: #### P OCGLUC #### [facility] [address] [place] [address] Dr. Ashlie Hills CBC AUTO DIFFon 12-04-2022 BASO # 0.1 103/ul Normal 0.0-0.1 [facility] Comment on above: Performed By: #### C BC #### [facility] [address] [place] [address] Dr. Ashlie Hills Basophils/100 WBC (Bld) 0.6 % Normal 0.2-2.0 [facility] Comment on above: Performed By: #### C BC #### [facility] [address] [place] [address] Dr. Ashlie Hills EO # 0.2 103/ul Normal 0.0-0.7 [facility] Comment on above: Performed By: #### C BC #### [facility] [address] [place] [address] Dr. Ashlie Hills Eosinophils/100 WBC (Bld) 1.9 % Normal 0.9-7.0 [facility] Comment on above: Performed By: #### C BC #### [facility] [address] [place] [address] Dr. Ashlie Hills Erythrocyte distribution width (RBC) [Ratio] 15.0 % Normal 11.0-15.0 [facility] Comment on above: Performed By: #### C BC #### [facility] [address] [place] [address] Dr. Ashlie Hills Hematocrit (Bld) [Volume fraction] 49.1 % Critically high 36.0-48.0 [facility] Comment on above: Performed By: #### C BC #### [facility] [address] [place] [address] Dr. Ashlie Hills Hemoglobin (Bld) [Mass/Vol] 15.6 g/dL Normal 12.0-16.0 [facility] Comment on above: Performed By: #### C BC #### [facility] [address] [place] [address] Dr. Ashlie Hills IG # 0.02 10e3/ul Normal 0.00-0.03 [facility] Comment on above: Performed By: #### C BC #### [facility] [address] [place] [address] Dr. Ashlie Hills IG % 0.2 % Normal 0.0-0.5 [facility] Comment on above: Performed By: #### C BC #### [facility] [address] [place] [address] Dr. Ashlie Hills LYMPH # 2.8 103/ul Normal 1.2-3.8 [facility] Comment on above: Performed By: #### C BC #### [facility] [address] [place] [address] Dr. Ashlie Hills Lymphocytes/100 WBC (Bld) 29.9 % Normal 20.5-60.0 [facility] Comment on above: Performed By: #### C BC #### [facility] [address] [place] [address] Dr. Ashlie Hills MANUAL DIFF REQ NO Normal [facility] Comment on above: Performed By: #### C BC #### [facility] [address] [place] [address] Dr. Ashlie Hills MCH (RBC) [Entitic mass] 28.5 pg Normal 26.7-34.0 [facility] Comment on above: Performed By: #### C BC #### [facility] [address] [place] [address] Dr. Ashlie Hills MCHC (RBC) [Mass/Vol] 31.8 g/dL Normal 29.9-35.2 [facility] Comment on above: Performed By: #### C BC #### [facility] [address] [place] [address] Dr. Ashlie Hills MCV (RBC) [Entitic vol] 89.8 fL Normal 81.0-99.0 [facility] Comment on above: Performed By: #### C BC #### [facility] [address] [address] [address] Ashlie Hills MONO # 1.0 103/ul Critically high 0.3-0.8 [facility] Comment on above: Performed By: #### C BC #### [facility] [address] [address] [address] Ashlie Hills Monocytes/100 WBC (Bld) 10.6 % Normal 1.7-12.0 [facility] Comment on above: Performed By: #### C BC #### [facility] [address] [place] [address] Dr. Ashlie Hills NEUT # 5.3 103/ul Normal 1.4-6.5 [facility] Comment on above: Performed By: #### C BC #### [facility] [address] [place] [address] Dr. Ashlie Hills Neutrophils/100 WBC (Bld) 56.8 % Normal 43.0-75.0 [facility] Comment on above: Performed By: #### C BC #### [facility] [address] [place] [address] Dr. Ashlie Hills Platelet mean volume (Bld) [Entitic vol] 12.5 fL Normal 9.5-13.5 [facility] Comment on above: Performed By: #### C BC #### [facility] [address] [place] [address] Dr. Ashlie Hills PLT 109 103/ul Critically low 150-450 [facility] Comment on above: Performed By: #### C BC #### [facility] [address] [place] [address] Dr. Ashlie Hills RBC 5.47 106/ul Critically high 4.20-5.40 [facility] Comment on above: Performed By: #### C BC #### [facility] [address] [place] [address] Dr. Ashlie Hills WBC 9.4 103/ul Normal 4.0-11.0 [facility] Comment on above: Performed By: #### C BC #### [facility] [address] [place] [address] Dr. Ashlie Hills PROF 14(COMP METB)on 023 Albumin [Mass/Vol] 2.9 g/dL Critically low 3.4-5.0 [facility] Comment on above: Performed By: #### C BC #### [facility] [address] [place] [address] Dr. Ashlie Hills Albumin/Globulin [Mass ratio] 0.6 {ratio} Normal [facility] Comment on above: Performed By: #### C BC #### [facility] [address] [place] [address] Dr. Ashlie Hills ALP [Catalytic activity/Vol] 64 U/L Normal 46-116 [facility] Comment on above: Performed By: #### C BC #### [facility] [address] [place] [address] Dr. Ashlie Hills ALT [Catalytic activity/Vol] 16 U/L Normal 14-59 [facility] Comment on above: Performed By: #### C BC #### [facility] [address] [place] [address] Dr. Ashlie Hills Anion gap [Moles/Vol] 9.6 mmol/L Normal [facility] Comment on above: Performed By: #### C BC #### [facility] [address] [place] [address] Dr. Ashlie Hills AST [Catalytic activity/Vol] 16 U/L Normal 15-37 [facility] Comment on above: Performed By: #### C BC #### [facility] [address] [place] [address] Dr. Ashlie Hills Bilirubin [Mass/Vol] 0.5 mg/dL Normal 0.2-1.0 [facility] Comment on above: Performed By: #### C BC #### [facility] [address] [place] [address] Dr. Ashlie Hills Calcium [Mass/Vol] 8.7 mg/dL Normal 8.5-10.1 [facility] Comment on above: Performed By: #### C BC #### [facility] [address] [place] [address] Dr. Ashlie Hills Chloride [Moles/Vol] 103 mmol/L Normal 98-107 [facility] Comment on above: Performed By: #### C BC #### [facility] [address] [place] [address] Dr. Ashlie Hills CO2 [Moles/Vol] 30.7 mmol/L Normal 21.0-32.0 [facility] Comment on above: Performed By: #### C BC #### [facility] [address] [place] [address] Dr. Ashlie Hills Creatinine [Mass/Vol] 0.96 mg/dL Normal 0.55-1.02 [facility] Comment on above: Performed By: #### C BC #### [facility] [address] [place] [address] Dr. Ashlie Hills EGFR-AF SURINAMESE >60 Normal >=60 [facility] Comment on above: Performed By: #### C BC #### [facility] [address] [place] [address] Dr. Ashlie Hills EGFR-NON AF SURINAMESE >60 Normal >=60 [facility] Comment on above: Performed By: #### C BC #### [facility] [address] [place] [address] Dr. Ashlie Hills Globulin (S) [Mass/Vol] 4.7 g/dL Normal [facility] Comment on above: Performed By: #### C BC #### [facility] [address] [place] [address] Dr. Ashlie Hills Glucose [Mass/Vol] 170 mg/dL Critically high 74-106 [facility] Comment on above: Performed By: #### C BC #### [facility] [address] [place] [address] Dr. Ashlie Hills Potassium [Moles/Vol] 4.3 mmol/L Normal 3.5-5.1 [facility] Comment on above: Performed By: #### C BC #### [facility] [address] [address] [address] Ashlie Hills Protein [Mass/Vol] 7.6 g/dL Normal 6.4-8.2 [facility] Comment on above: Performed By: #### C BC #### [facility] [address] [address] [address] Ashlie Hills Sodium [Moles/Vol] 139 mmol/L Normal 136-145 [facility] Comment on above: Performed By: #### C BC #### [facility] [address] [address] [address] Ashlie Hills Urea nitrogen [Mass/Vol] 16.0 mg/dL Normal 7.0-18.0 [facility] Comment on above: Performed By: #### C BC #### [facility] [address] [place] [address] Dr. Ashlie Hills Urea nitrogen/Creatinine [Mass ratio] 16.7 mg/mg Normal [facility] Comment on above: Performed By: #### C BC #### [facility] [address] [place] [address] Dr. Ashlie Hills SYMPTOMATIC COVID-19 ANTIGEN on 12-04-2022 EUA Statement SEE BELOW Normal [facility] Comment on [...] sooner. Performed By: #### C VDAGS #### [facility] [address] [place] [address] Dr. Ashlie Hills SARS-CoV-2 (COVID-19) RNA MADDY+probe Ql (Unsp spec) Negative Normal NEGATIVE [facility] Comment on above: Performed By: #### C VDAGS #### [facility] [address] [place] [address] Dr. Ashlie Hills TROPONIN, HIGH SENSITIVITYon 12-04-2022 HSTROP 8.9 pg/mL Normal 4.0-51.3 [facility] Comment on above: Result Comment: CUT- OFF POINTS HAVE BEEN ESTABLISHED BASED ON THE FOURTH UNIVERSAL DEFINITIONS OF MYOCARDIAL INFARCTION. THE UPPER REFERENCE LIMIT (URL) OF TROPONIN, DEFINED THE 99TH PERCENTILE OF cTnI DISTRIBUTION IN A REFERENCE POPULATION, HAS BEEN CONFIRMED THE DECISION THRESHOLD FOR [place] DIAGNOSIS. Performed By: #### P OCGLUC #### [facility] [address] [place] [address] Dr. Ashlie Hills MICROALBUMIN, RAND URon - mALB 35.8 mg/dL Critically high <=30.0 [facility] Comment on above: Performed By: #### C VDAGS #### [facility] [address] [place] [address] Dr. Ashlie Hills UA RANDOM W/MICROSCOPICon BACTERIA NONE SEEN Normal NONE SEEN [facility] Comment on above: Performed By: #### C VDAGS #### [facility] [address] [place] [address] Dr. sAhlie Hills Bilirubin Ql (U) Negative Normal NEGATIVE [facility] Comment on above: Performed By: #### C VDAGS #### [facility] [address] [place] [address] Dr. Ashlie Hills CAST SEEN Abnormal NONE SEEN [facility] Comment on above: Performed By: #### C VDAGS #### [facility] [address] [place] [address] Dr. Ashlie Hills Clarity (U) CLEAR Normal CLEAR [facility] Comment on above: Performed By: #### C VDAGS #### [facility] [address] [place] [address] Dr. Ashlie Hills Color (U) YELLOW Normal YELLOW [facility] Comment on above: Performed By: #### C VDAGS #### [facility] [address] [address] [address] Ashlie Hills Crystals LM Nom (Urine sed) NONE SEEN Normal NONE SEEN [facility] Comment on above: Performed By: #### C VDAGS #### [facility] [address] [place] [address] Dr. Ashlie Hills Epithelial cells LM Ql (Urine sed) MODERATE Abnormal NONE SEEN /RARE [facility] Comment on above: Performed By: #### C VDAGS #### [facility] [address] [place] [address] Dr. Ahslie Hills Glucose Ql (U) Negative Normal NEGATIVE [facility] Comment on above: Performed By: #### C VDAGS #### [facility] [address] [place] [address] Dr. Ashlie Hills Hemoglobin Ql (U) TRACE-INTACT Abnormal NEGATIVE [facility] Comment on above: Performed By: #### C VDAGS #### [facility] [address] [place] [address] Dr. Ashlie Hills Ketones Ql (U) Negative Normal NEGATIVE [facility] Comment on above: Performed By: #### C VDAGS #### [facility] [address] [place] [address] Dr. Ashlie Hills LEUKOCYTES Negative Normal NEGATIVE [facility] Comment on above: Performed By: #### C VDAGS #### [facility] [address] [place] [address] Dr. Ashlie Hills MUCOUS NONE SEEN Normal NONE SEEN [facility] Comment on above: Performed By: #### C VDAGS #### [facility] [address] [place] [address] Dr. Ashlie Hills Nitrite Ql (U) Negative Normal NEGATIVE [facility] Comment on above: Performed By: #### C VDAGS #### [facility] [address] [place] [address] Dr. Ashlie Hills pH (U) 5.0 [pH] Normal 5-9 [facility] Comment on above: Performed By: #### C VDAGS #### [facility] [address] [place] [address] Dr. Ashlie Hills RBC 0-2 Normal 0-2 [facility] Comment on above: Performed By: #### C VDAGS #### [facility] [address] [place] [address] Dr. Ashlie Hills SPEC GRAVITY 1.030 Abnormal 1.005-<=1.025 [facility] Comment on above: Performed By: #### C VDAGS #### [facility] [address] [place] [address] Dr. Ashlie Hills UA PROTEIN 100 mg/dl Abnormal NEGATIVE/ TRACE [facility] Comment on above: Performed By: #### C VDAGS #### [facility] [address] [place] [address] Dr. Ashlie Hills Urobilinogen Qn (U) 0.2 {Little'U}/dL Normal 0.2 - 1. 0 [facility] Comment on above: Performed By: #### C VDAGS #### [facility] [address] [place] [address] Dr. Ashlie Hills WBC NONE SEEN Normal NONE SEEN [facility] Comment on above: Performed By: #### C VDAGS #### [facility] [address] [place] [address] Dr. Ashlie Hills CBC AUTO DIFFon 11-22-2022 BASO # 0.0 103/ul Normal 0.0-0.1 [facility] Comment on above: Performed By: #### C BC #### [facility] [address] [place] [address] Dr. Ashlie Hills Basophils/100 WBC (Bld) 0.3 % Normal 0.2-2.0 [facility] Comment on above: Performed By: #### C BC #### [facility] [address] [place] [address] Dr. Ashlie Hills EO # 0.4 103/ul Normal 0.0-0.7 [facility] Comment on above: Performed By: #### C BC #### [facility] [address] [address] [address] Ashlie Hills Eosinophils/100 WBC (Bld) 3.0 % Normal 0.9-7.0 [facility] Comment on above: Performed By: #### C BC #### [facility] [address] [address] [address] Ashlie Hills Erythrocyte distribution width (RBC) [Ratio] 15.3 % Critically high 11.0-15.0 [facility] Comment on above: Performed By: #### C BC #### [facility] [address] [place] [address] Dr. Ashlie Hills Hematocrit (Bld) [Volume fraction] 52.4 % Critically high 36.0-48.0 [facility] Comment on above: Performed By: #### C BC #### [facility] [address] [place] [address] Dr. Ashlie Hills Hemoglobin (Bld) [Mass/Vol] 16.8 g/dL Critically high 12.0-16.0 [facility] Comment on above: Performed By: #### C BC #### [facility] [address] [place] [address] Dr. Ashlie Hills IG # 0.04 10e3/ul Critically high 0.00-0.03 [facility] Comment on above: Performed By: #### C BC #### [facility] [address] [place] [address] Dr. Ashlie Hills IG % 0.3 % Normal 0.0-0.5 [facility] Comment on above: Performed By: #### C BC #### [facility] [address] [place] [address] Dr. Ashlie Hills LYMPH # 4.5 103/ul Critically high 1.2-3.8 [facility] Comment on above: Performed By: #### C BC #### [facility] [address] [place] [address] Dr. Ashlie Hills Lymphocytes/100 WBC (Bld) 33.2 % Normal 20.5-60.0 [facility] Comment on above: Performed By: #### C BC #### [facility] [address] [place] [address] Dr. Ashlie Hills MANUAL DIFF REQ NO Normal [facility] Comment on above: Performed By: #### C BC #### [facility] [address] [place] [address] Dr. Ashlie Hills MCH (RBC) [Entitic mass] 28.0 pg Normal 26.7-34.0 [facility] Comment on above: Performed By: #### C BC #### [facility] [address] [place] [address] Dr. Ashlie Hills MCHC (RBC) [Mass/Vol] 32.1 g/dL Normal 29.9-35.2 [facility] Comment on above: Performed By: #### C BC #### [facility] [address] [place] [address] Dr. Ashlie Hills MCV (RBC) [Entitic vol] 87.3 fL Normal 81.0-99.0 [facility] Comment on above: Performed By: #### C BC #### [facility] [address] [place] [address] Dr. Ashlie Hills MONO # 0.8 103/ul Normal 0.3-0.8 [facility] Comment on above: Performed By: #### C BC #### [facility] [address] [place] [address] Dr. Ashlie Hills Monocytes/100 WBC (Bld) 5.7 % Normal 1.7-12.0 [facility] Comment on above: Performed By: #### C BC #### [facility] [address] [place] [address] Dr. Ashlie Hills NEUT # 7.8 103/ul Critically high 1.4-6.5 [facility] Comment on above: Performed By: #### C BC #### [facility] [address] [place] [address] Dr. Ashlie Hills Neutrophils/100 WBC (Bld) 57.5 % Normal 43.0-75.0 [facility] Comment on above: Performed By: #### C BC #### [facility] [address] [address] [address] Ashlie Hills Platelet mean volume (Bld) [Entitic vol] 12.0 fL Normal 9.5-13.5 [facility] Comment on above: Performed By: #### C BC #### [facility] [address] [address] [address] Ashlie Hills PLT 152 103/ul Normal 150-450 [facility] Comment on above: Performed By: #### C BC #### [facility] [address] [address] [address] Ashlie Hills RBC 6.00 106/ul Critically high 4.20-5.40 [facility] Comment on above: Performed By: #### C BC #### [facility] [address] [place] [address] Dr. Ashlie Hills WBC 13.6 103/ul Critically high 4.0-11.0 [facility] Comment on above: Performed By: #### C BC #### [facility] [address] [place] [address] Dr. Ashlie Hills LIPID PROFILEon 11-22-2022 CHOL-HDL RATIO NORM SEE BELOW Normal [facility] Comment on above: Result Comment: 3.3 - 4.4 LOW RISK 4.4 - 7.1 AVERAGE RISK 7.1 - 11.0 MODERATE RISK >11.0 HIGH RISK Performed By: #### C BC #### [facility] [address] [place] [address] Dr. Ashlie Hills Cholesterol [Mass/Vol] 139 mg/dL Normal <=200 [facility] Comment on above: Performed By: #### C BC #### [facility] [address] [place] [address] Dr. Ashlie Hills Cholesterol in HDL [Mass/Vol] 35 mg/dL Critically low 40-60 [facility] Comment on above: Performed By: #### C BC #### [facility] [address] [place] [address] Dr. Ashlie Hills Cholesterol in LDL [Mass/Vol] 67.4 mg/dL Normal [facility] Comment on above: Performed By: #### C BC #### [facility] [address] [address] [address] Ashlie Hills Cholesterol.total/Ch olesterol in HDL [Mass ratio] 4.0 {ratio} Normal [facility] Comment on above: Performed By: #### C BC #### [facility] [address] [address] [address] Ashlie Hills HDL NORMAL > or = 60 mg/dl - LOW CARDIOVASCULAR RISK <40 mg/dl - HIGH CARDIOVASCULAR RISK Normal [facility] Comment on above: Performed By: #### C BC #### [facility] [address] [address] [address] Ashlie Hills LDL CALC NORMAL SEE BELOW Normal [facility] Comment on above: Result Comment: <100 mg/dl OPTIMAL 100 - 129 mg/dl NEAR OR ABOVE OPTIMAL 130 - 159 mg/dl BORDERLINE HIGH 160 - 189 mg/dl HIGH >190 mg/dl VERY HIGH Performed By: #### C BC #### [facility] [address] [address] [address] Ashlie Hills Triglyceride [Mass/Vol] 183 mg/dL Critically high <=150 [facility] Comment on above: Performed By: #### C BC #### [facility] [address] [address] [address] Ashlie Hills VLDL CALC 36.6 mg/dL Normal [facility] Comment on above: Performed By: #### C BC #### [facility] [address] [address] [address] Ashlie Hills MG MAMM SCREEN 3D ALEX CADon 11-22-2022 MG MAMM SCREEN 3D ALEX CAD Patient: MITZI MACIAS Exam Date: 11/22/2022 : 1970 Gender:F Ordering : SAYDA BLAS CNP Admission #: [id number] Family : Order #: [id number] CLICK HERE TO VIEW EXAM RADIOLOGY REPORT [...] unknown cancer at age 75. LOCATION: [facility] BREAST COMPOSITION: Almost entirely fatty. FINDINGS: DIAGNOSTIC [...] Veloz M.D. on 11/22/2022 at 12:09 Normal [facility] PROF 14(COMP METB)on 023 Albumin [Mass/Vol] 3.0 g/dL Critically low 3.4-5.0 [facility] Comment on above: Performed By: #### C BC #### [facility] [address] [place] [address] Dr. Ashlie Hills Albumin/Globulin [Mass ratio] 0.6 {ratio} Normal [facility] Comment on above: Performed By: #### C BC #### [facility] [address] [address] [address] Ashlie Hills ALP [Catalytic activity/Vol] 68 U/L Normal 46-116 [facility] Comment on above: Performed By: #### C BC #### [facility] [address] [address] [address] Ashlie Hills ALT [Catalytic activity/Vol] 14 U/L Normal 14-59 [facility] Comment on above: Performed By: #### C BC #### [facility] [address] [address] [address] Ashlie Hills Anion gap [Moles/Vol] 12.1 mmol/L Normal [facility] Comment on above: Performed By: #### C BC #### [facility] [address] [address] [address] Ashlie Hills AST [Catalytic activity/Vol] 9 U/L Critically low 15-37 [facility] Comment on above: Performed By: #### C BC #### [facility] [address] [address] [address] Ashlie Hills Bilirubin [Mass/Vol] 0.4 mg/dL Normal 0.2-1.0 [facility] Comment on above: Performed By: #### C BC #### [facility] [address] [address] [address] Ashlie Hills Calcium [Mass/Vol] 9.0 mg/dL Normal 8.5-10.1 [facility] Comment on above: Performed By: #### C BC #### [facility] [address] [address] [address] Ashlie Hills Chloride [Moles/Vol] 105 mmol/L Normal 98-107 [facility] Comment on above: Performed By: #### C BC #### [facility] [address] [address] [address] Ashlie Hills CO2 [Moles/Vol] 30.7 mmol/L Normal 21.0-32.0 [facility] Comment on above: Performed By: #### C BC #### [facility] [address] [address] [address] Ashlie Hills Creatinine [Mass/Vol] 0.77 mg/dL Normal 0.55-1.02 [facility] Comment on above: Performed By: #### C BC #### [facility] [address] [address] [address] Ashlie Hills EGFR-AF SURINAMESE >60 Normal >=60 [facility] Comment on above: Performed By: #### C BC #### [facility] [address] [address] [address] Ashlie Hills EGFR-NON AF SURINAMESE >60 Normal >=60 [facility] Comment on above: Performed By: #### C BC #### [facility] [address] [address] [address] Ashlie Hills Globulin (S) [Mass/Vol] 4.8 g/dL Normal [facility] Comment on above: Performed By: #### C BC #### [facility] [address] [address] [address] Ashlie Hills Glucose [Mass/Vol] 162 mg/dL Critically high 74-[address] [facility] Comment on above: Performed By: #### C BC #### [facility] [address] [address] [address] Ashlie Hills Potassium [Moles/Vol] 3.8 mmol/L Normal 3.5-5.1 [facility] Comment on above: Performed By: #### C BC #### [facility] [facility] [address] [place] [address] Dr. Ashlie Hills Protein [Mass/Vol] 7.8 g/dL Normal 6.4-8.2 [facility] Comment on above: Performed By: #### C BC #### [facility] [address] [place] [address] Dr. Ashlie Hills Sodium [Moles/Vol] 144 mmol/L Normal 136-145 [facility] Comment on above: Performed By: #### C BC #### [facility] [address] [address] [address] Ashlie Hills Urea nitrogen [Mass/Vol] 24.0 mg/dL Critically high 7.0-18.0 [facility] Comment on above: Performed By: #### C BC #### [facility] [address] [place] [address] Dr. Ashlie Hills Urea nitrogen/Creatinine [Mass ratio] 31.2 mg/mg Normal [facility] Comment on above: Performed By: #### C BC #### [facility] [address] [place] [address] Dr. Ashlie Hills CBC AUTO DIFFon 10-05-2022 BASO # 0.1 103/ul Normal 0.0-0.1 [facility] Comment on above: Performed By: #### C BC #### [facility] [address] [address] [address] Ashlie Hills Basophils/100 WBC (Bld) 0.6 % Normal 0.2-2.0 [facility] Comment on above: Performed By: #### C BC #### [facility] [address] [address] [address] Ashlie Hills EO # 0.3 103/ul Normal 0.0-0.7 [facility] Comment on above: Performed By: #### C BC #### [facility] [address] [address] [address] Ashlie Hills Eosinophils/100 WBC (Bld) 2.1 % Normal 0.9-7.0 [facility] Comment on above: Performed By: #### C BC #### [facility] [address] [place] [address] Dr. Ashlie Hills Erythrocyte distribution width (RBC) [Ratio] 15.9 % Critically high 11.0-15.0 [facility] Comment on above: Performed By: #### C BC #### [facility] [address] [place] [address] Dr. Ashlie Hills Hematocrit (Bld) [Volume fraction] 51.8 % Critically high 36.0-48.0 [facility] Comment on above: Performed By: #### C BC #### [facility] [address] [place] [address] Dr. Ashlie Hills Hemoglobin (Bld) [Mass/Vol] 16.6 g/dL Critically high 12.0-16.0 [facility] Comment on above: Performed By: #### C BC #### [facility] [address] [place] [address] Dr. Ashlie Hills IG # 0.03 10e3/ul Normal 0.00-0.03 [facility] Comment on above: Performed By: #### C BC #### [facility] [address] [place] [address] Dr. Ashlie Hills IG % 0.2 % Normal 0.0-0.5 [facility] Comment on above: Performed By: #### C BC #### [facility] [address] [address] [address] Ashlie Hills LYMPH # 3.9 103/ul Critically high 1.2-3.8 [facility] Comment on above: Performed By: #### C BC #### [facility] [address] [address] [address] Ashlie Hills Lymphocytes/100 WBC (Bld) 31.7 % Normal 20.5-60.0 [facility] Comment on above: Performed By: #### C BC #### [facility] [address] [place] [address] Dr. Ashlie Hills MANUAL DIFF REQ NO Normal [facility] Comment on above: Performed By: #### C BC #### [facility] [address] [place] [address] Dr. Ashlie Hills MCH (RBC) [Entitic mass] 27.9 pg Normal 26.7-34.0 [facility] Comment on above: Performed By: #### C BC #### [facility] [address] [place] [address] Dr. Ashlie Hills MCHC (RBC) [Mass/Vol] 32.0 g/dL Normal 29.9-35.2 [facility] Comment on above: Performed By: #### C BC #### [facility] [address] [place] [address] Dr. Ashlie Hills MCV (RBC) [Entitic vol] 87.1 fL Normal 81.0-99.0 [facility] Comment on above: Performed By: #### C BC #### [facility] [address] [place] [address] Dr. Ashlie Hills MONO # 0.7 103/ul Normal 0.3-0.8 [facility] Comment on above: Performed By: #### C BC #### [facility] [address] [place] [address] Dr. Ashlie Hills Monocytes/100 WBC (Bld) 5.8 % Normal 1.7-12.0 [facility] Comment on above: Performed By: #### C BC #### [facility] [address] [place], [place] [id number] Dr. Ashlie Hills NEUT # 7.3 103/ul Critically high 1.4-6.5 [facility] Comment on above: Performed By: #### C BC #### [facility] [address] [place] [address] Dr. Ashlie Hills Neutrophils/100 WBC (Bld) 59.6 % Normal 43.0-75.0 [facility] Comment on above: Performed By: #### C BC #### [facility] [address] [place] [address] Dr. Ashlie Hills Platelet mean volume (Bld) [Entitic vol] 11.7 fL Normal 9.5-13.5 [facility] Comment on above: Performed By: #### C BC #### [facility] [address] [place] [address] Dr. Ashlie Hills PLT 117 103/ul Critically low 150-450 [facility] Comment on above: Performed By: #### C BC #### [facility] [address] [place] [address] Dr. Ashlie Hills RBC 5.95 106/ul Critically high 4.20-5.40 [facility] Comment on above: Performed By: #### C BC #### [facility] [address] [place] [address] Dr. Ashlie Hills WBC 12.3 103/ul Critically high 4.0-11.0 [facility] Comment on above: Performed By: #### C BC #### [facility] [address] [place] [address] ABD/PELV W CONon [...] RICCO PICKARD Date: 2022-10-05 13:13 Normal [facility] ER URINE PROFILEon 3 Bilirubin Ql (U) Negative Normal NEGATIVE [facility] Comment on above: Performed By: #### P OCGLUC #### [facility] [address] [place] [address] Dr. Ashlie Hills Clarity (U) CLEAR Normal CLEAR [facility] Comment on above: Performed By: #### P OCGLUC #### [facility] [address] [place] [address] Dr. Ashlie Hills Color (U) YELLOW Normal YELLOW [facility] Comment on above: Performed By: #### P OCGLUC #### [facility] [address] [place] [address] Dr. Ashlie HOBBS A micrscopic examination will be performed if indicated. Normal [facility] Comment on above: Performed By: #### P OCGLUC #### [facility] [address] [address] [address] Ashlie Hills Glucose Ql (U) Negative Normal NEGATIVE [facility] Comment on above: Performed By: #### P OCGLUC #### [facility] [address] [address] [address] Ashlie Hills Hemoglobin Ql (U) Negative Normal NEGATIVE [facility] Comment on above: Performed By: #### P OCGLUC #### [facility] [address] [place] [address] Dr. Ashlie Hills Ketones Ql (U) Negative Normal NEGATIVE [facility] Comment on above: Performed By: #### P OCGLUC #### [facility] [address] [place] [address] Dr. Ashlie Hills LEUKOCYTES Negative Normal NEGATIVE [facility] Comment on above: Performed By: #### P OCGLUC #### [facility] [address] [place] [address] Dr. Ashlie Hills Nitrite Ql (U) Negative Normal NEGATIVE [facility] Comment on above: Performed By: #### P OCGLUC #### [facility] [address] [place] [address] Dr. Ashlie Hills pH (U) 6.0 [pH] Normal 5-9 [facility] Comment on above: Performed By: #### P OCGLUC #### [facility] [address] [place] [address] Dr. Ashlie Hills Protein (U) [Mass/Vol] 100 mg/dL Abnormal NEGATIVE/ TRACE [facility] Comment on above: Performed By: #### P OCGLUC #### [facility] [address] [place] [address] Dr. Ashlie Hills SPEC GRAVITY 1.010 Normal 1.005-<=1.025 [facility] Comment on above: Performed By: #### P OCGLUC #### [facility] [address] [place] [address] Dr. Ashlie Hills UR MICRO IND INDICATED Normal [facility] Comment on above: Performed By: #### P OCGLUC #### [facility] [address] [place] [address] Dr. Ashlie Hills Urobilinogen Qn (U) 1.0 {Little'U}/dL Normal 0.2 - 1. 0 [facility] Comment on above: Performed By: #### P OCGLUC #### [facility] [address] [place] [address] Dr. Ashlie Hills LIPASEon 10-05-2022 Lipase [Catalytic activity/Vol] 1771.0 U/L Critically high 73.0-393.0 [facility] Comment on above: Performed By: #### C BC #### [facility] [address] [place] [address] Dr. Ashlie Hills PREG HCG QUALon 10-05-2022 , QUAL Negative Normal NEGATIVE [facility] Comment on above: Performed By: #### P OCGLUC #### [facility] [address] [place] [address] Dr. Ashlie Hills PROF 14(COMP METB)on 023 Albumin [Mass/Vol] 3.2 g/dL Critically low 3.4-5.0 [facility] Comment on above: Performed By: #### C BC #### [facility] [address] [place] [address] Dr. Ashlie Hills Albumin/Globulin [Mass ratio] 0.7 {ratio} Normal [facility] Comment on above: Performed By: #### C BC #### [facility] [address] [place] [address] Dr. Ashlie Hills ALP [Catalytic activity/Vol] 70 U/L Normal 46-116 [facility] Comment on above: Performed By: #### C BC #### [facility] [address] [place] [address] Dr. Ashlie Hills ALT [Catalytic activity/Vol] 11 U/L Critically low 14-59 [facility] Comment on above: Performed By: #### C BC #### [facility] [address] [place] [address] Dr. Ashlie Hills Anion gap [Moles/Vol] 10.3 mmol/L Normal [facility] Comment on above: Performed By: #### C BC #### [facility] [address] [place] [address] Dr. Ashlie Hills AST [Catalytic activity/Vol] 11 U/L Critically low 15-37 [facility] Comment on above: Performed By: #### C BC #### [facility] [address] [place] [address] Dr. Ashlie Hills Bilirubin [Mass/Vol] 0.9 mg/dL Normal 0.2-1.0 [facility] Comment on above: Performed By: #### C BC #### [facility] [address] [address] [address] Ashlie Hills Calcium [Mass/Vol] 9.3 mg/dL Normal 8.5-10.1 [facility] Comment on above: Performed By: #### C BC #### [facility] [address] [address] [address] Ashlie Hills Chloride [Moles/Vol] 105 mmol/L Normal 98-107 [facility] Comment on above: Performed By: #### C BC #### [facility] [address] [address] [address] Ashlie Hills CO2 [Moles/Vol] 30.6 mmol/L Normal 21.0-32.0 [facility] Comment on above: Performed By: #### C BC #### [facility] [address] [place] [address] Dr. Ashlie Hills Creatinine [Mass/Vol] 0.62 mg/dL Normal 0.55-1.02 [facility] Comment on above: Performed By: #### C BC #### [facility] [address] [address] [address] Ashlie Hills EGFR-AF SURINAMESE >60 Normal >=60 [facility] Comment on above: Performed By: #### C BC #### [facility] [address] [place] [address] Dr. Ashlie Hills EGFR-NON AF SURINAMESE >60 Normal >=60 [facility] Comment on above: Performed By: #### C BC #### [facility] [address] [address] [address] Ashlie Hills Globulin (S) [Mass/Vol] 4.6 g/dL Normal [facility] Comment on above: Performed By: #### C BC #### [facility] [address] [place] [address] Dr. Ashlie Hills Glucose [Mass/Vol] 85 mg/dL Normal 74-106 [facility] Comment on above: Performed By: #### C BC #### [facility] [address] [place] [address] Dr. Ashlie Hills Potassium [Moles/Vol] 3.9 mmol/L Normal 3.5-5.1 [facility] Comment on above: Performed By: #### C BC #### [facility] [address] [place] [address] Dr. Ashlie Hills Protein [Mass/Vol] 7.8 g/dL Normal 6.4-8.2 [facility] Comment on above: Performed By: #### C BC #### [facility] [address] [place] [address] Dr. Ashlie Hills Sodium [Moles/Vol] 142 mmol/L Normal 136-145 [facility] Comment on above: Performed By: #### C BC #### [facility] [address] [place] [address] Dr. Ashlie Hills Urea nitrogen [Mass/Vol] 12.0 mg/dL Normal 7.0-18.0 [facility] Comment on above: Performed By: #### C BC #### [facility] [address] [place] [address] Dr. Ashlie Hills Urea nitrogen/Creatinine [Mass ratio] 19.4 mg/mg Normal [facility] Comment on above: Performed By: #### C BC #### [facility] [address] [place] [address] Dr. Ahslie Hills URINE MICROSCOPIC ONLYon BACTERIA TRACE Abnormal NONE SEEN [facility] Comment on above: Performed By: #### P OCGLUC #### [facility] [address] [place] [address] Dr. Ashlie Hills Bacteria identified Cx Nom (U) NOT INDICATED Normal [facility] Comment on above: Performed By: #### P OCGLUC #### [facility] [address] [place] [address] Dr. Ashlie Hills CAST NONE SEEN Normal NONE SEEN [facility] Comment on above: Performed By: #### P OCGLUC #### [facility] [address] [place] [address] Dr. Ashlie Hills Crystals LM Nom (Urine sed) NONE SEEN Normal NONE SEEN [facility] Comment on above: Performed By: #### P OCGLUC #### [facility] [address] [place] [address] Dr. Ashlie Hills Epithelial cells LM Ql (Urine sed) MODERATE Abnormal NONE SEEN /RARE [facility] Comment on above: Performed By: #### P OCGLUC #### [facility] [address] [place] [address] Dr. Ashlie Hills MUCOUS NONE SEEN Normal NONE SEEN [facility] Comment on above: Performed By: #### P OCGLUC #### [facility] [address] [place] [address] Dr. Ashlie Hills RBC 0-2 Normal 0-2 [facility] Comment on above: Performed By: #### P OCGLUC #### [facility] [address] [place] [address] Dr. Ashlie Hills WBC 0-2 Abnormal NONE SEEN [facility] Comment on above: Performed By: #### P OCGLUC #### [facility] [address] [place] [address] Dr. Ashlie Hills [facility]06 SARS-CoV-2 (COVID-19) RNA MADDY+probe Ql (Unsp spec) Detected Abnormal NOT DETECTED [facility] Comment on above: Result Comment: This test is not yet approved or cleared by the [place] FDA. When there are no FDA-approved or cleared tests available, and other criteria are met, FDA can make tests available under an emergency access mechanism called an Emergency Use Authorization (EUA). The EUA for this test is supported by the [employer] of Health and Human Service's declaration that [...] used). Performed By: #### C VDAGS #### [facility] [address] [place] [address] Dr. Ashlie Hills INFLUENZA A AND B AGon 09-21 INFLUANEGH SEE BELOW Normal [facility] Comment on above: Result Comment: Nega tive for Flu A protein angiten. Infection due to Flu A cannot be ruled out. Flu A angiten in the sample may be below the detection limit of the test. Performed By: #### I NFLUAB #### [facility] [address] [place] [address] Dr. Ashlie Hills [facility] SEE BELOW Normal [facility] Comment on above: Result Comment: Nega tive for Flu B protein antigen. Infection due to Flu B cannot be ruled out. Flu B antigen in the sample may be below the detection limit of the test. Performed By: #### I NFLUAB #### [facility] [address] [place] [address] Dr. Ashlie Hills INFLUENZA A AG Negative Normal NEGATIVE SEE COMMENT [facility] Comment on above: Performed By: #### I NFLUAB #### [facility] [address] [place] [address] Dr. Ashlie Hills INFLUENZA B AG Negative Normal NEGATIVE SEE COMMENT [facility] Comment on above: Performed By: #### I NFLUAB #### [facility] [address] [place] [address] ABD/PELV W CONon [...] to at least 10/21/2018, unchanged. https://www.ncbi.nlm .nih.gov/pmc/article s/[email or web address]/ Electronically authenticated by: COLLIN HUERTAS Date: 2022-07-27 14:56 Normal [facility] CREATININEon 07-18-2022 Creatinine [Mass/Vol] 0.81 mg/dL Normal 0.55-1.02 [facility] Comment on above: Performed By: #### C BC #### [facility] [address] [place] [address] Dr. Ashlie Hills EGFR-AF SURINAMESE >60 Normal >=60 [facility] Comment on above: Performed By: #### C BC #### [facility] [address] [place] [address] Dr. Ashlie Hills EGFR-NON AF SURINAMESE >60 Normal >=60 [facility] Comment on above: Performed By: #### C BC #### [facility] [address] [place] [address] LOW EXT W [...] PATRICIA VELOZ Date: 2022-07-18 14:58 Normal [facility] XR KNEE LT 1_2 Von [...] HATTIE BAUTISTA Date: 2022-07-18 12:00 Normal [facility] Covid-19 PCR (CVDTB)on 06-09 SARS-CoV-2 (COVID-19) RNA MADDY+probe Ql (Unsp spec) Not detected Normal NOT DETECTED [facility] Comment on above: Result Comment: This test is not yet approved or cleared by the [place] FDA. When there are no FDA-approved or cleared tests available, and other criteria are met, FDA can make tests available under an emergency access mechanism called an Emergency Use Authorization (EUA). The EUA for this test is supported by the [place] of Health and Human Service's (HHS's) declaration [...] SARS-CoV-2. Performed By: #### C BC #### [facility] [address] [address] [address] Ashlie Hills INFLUENZA A AND B AGon 07-06 INFLUANEGH SEE BELOW Normal [facility] Comment on above: Result Comment: Nega tive for Flu A protein angiten. Infection due to Flu A cannot be ruled out. Flu A angiten in the sample may be below the detection limit of the test. Performed By: #### C BC #### [facility] [address] [address] [address] Ashlie Hills INFLUBANNER SEE BELOW Normal [facility] Comment on above: Result Comment: Nega tive for Flu B protein antigen. Infection due to Flu B cannot be ruled out. Flu B antigen in the sample may be below the detection limit of the test. Performed By: #### C BC #### [facility] [address] [place] [address] Dr. Ashlie Hills INFLUENZA A AG Negative Normal NEGATIVE SEE COMMENT [facility] Comment on above: Performed By: #### C BC #### [facility] [address] [place] [address] Dr. Ashlie Hills INFLUENZA B AG Negative Normal NEGATIVE SEE COMMENT [facility] Comment on above: Performed By: #### C BC #### [facility] [address] [place] [address] Dr. Ashlie Hills POINT OF CARE GLUCOSEon 10- Glucose [Mass/Vol] 108 mg/dL Critically high 74-[address] [facility] Comment on above: Performed By: #### C BC #### [facility] [address] [place] [address] Dr. Ashlie Hills RAGHU by IFAon 03-07-2022 Antinuclear Antibodies, IFA Negative Normal [facility] Comment on above: Result Comment: Nega tive <1:80 Borderline 1:80 Positive >1:80 ICAP nomenclature: AC-0 For more information about Hep-2 cell patterns use ANApatterns.org, the official website for the International Consensus on Antinuclear Antibody (RAGHU) Patterns (ICAP). Performed By: #### A NAIFA #### [facility] [address] [place] [address] Dr. Ashlie Hills IMMUNOFIXATION (TREVON), URINEo n 03-07-2022 TREVON Interpretation:U Comment Normal [facility] Comment on above: Result Comment: No m onoclonality detected. Performed By: #### C BC #### [facility] [address] [place] [address] Dr. Ashlie Hills IMMUNOFIXATION(TREVON),PROTEIN ELEC(PE),FREon 03-07-2022 Albumin [Mass/Vol] 3.0 g/dL Normal 2.9-4.4 [facility] Comment on above: Performed By: #### I NFLUAB #### [facility] [address] [place] [address] Dr. Ashlie Hills Albumin/Globulin [Mass ratio] 0.8 {ratio} Normal 0.7-1.7 [facility] Comment on above: Performed By: #### I NFLUAB #### [facility] [address] [place] [address] Dr. Ashlie Hills [id number] 0.3 g/dL Normal 0.0-0.4 [facility] Comment on above: Performed By: #### I NFLUAB #### [facility] [address] [place] [address] Dr. Ashlie Hills [id number]-9-[id number] 1.0 g/dL Normal 0.4-1.0 [facility] Comment on above: Performed By: #### I NFLUAB #### [facility] [address] [place] [address] Dr. Ashlie Hills Beta Globulin 1.8 g/dL Critically high 0.7-1.3 [facility] Comment on above: Performed By: #### I NFLUAB #### [facility] [address] [place] [address] Dr. Ashlie Hills Free [place] Lt Chains,S 45.2 mg/L Critically high 3.3-19.4 [facility] Comment on above: Performed By: #### I NFLUAB #### [facility] [address] [place] [address] Dr. Ashlie Hills Free Lambda Lt Chains,S 40.3 mg/L Critically high 5.7-26.3 [facility] Comment on above: Performed By: #### I NFLUAB #### [facility] [address] [place] [address] Dr. Ashlie Hills Gamma Globulin 0.8 g/dL Normal 0.4-1.8 [facility] Comment on above: Performed By: #### I NFLUAB #### [facility] [address] [address] [address] Ashlie Hills Globulin (S) [Mass/Vol] 3.9 g/dL Normal 2.2-3.9 [facility] Comment on above: Performed By: #### I NFLUAB #### [facility] [address] [place] [address] Dr. Ashlie Hills Immunofixation Result, Serum Comment Normal [facility] Comment on above: Result Comment: No m onoclonality detected. Performed By: #### I NFLUAB #### [facility] [address] [place] [address] Dr. Ashlie Hills Immunoglobulin A, Qn, Serum 776 mg/dL Critically high 87-352 [facility] Comment on above: Performed By: #### I NFLUAB #### [facility] [address] [place] [address] Dr. Ashlie Hills Immunoglobulin G, Qn, Serum 955 mg/dL Normal 586-1602 [facility] Comment on above: Performed By: #### I NFLUAB #### [facility] [address] [place] [address] Dr. Ashlie Hills Immunoglobulin M, Qn, Serum 39 mg/dL Normal 26-217 [facility] Comment on above: Performed By: #### I NFLUAB #### [facility] [address] [place] [address] Dr. Ashlie Hills [place]/Lambda Ratio, S 1.12 Normal 0.26-1.65 [facility] Comment on above: Performed By: #### I NFLUAB #### [facility] [address] [place] [address] Dr. Ashlie Hills M-Bright Not Observed Normal Not Observed [facility] Comment on above: Performed By: #### I NFLUAB #### [facility] [address] [place] [address] Dr. Ashlie Hills PDF . Normal [facility] Comment on above: Performed By: #### I NFLUAB #### [facility] [address] [place] [address] Dr. Ashlie Hills Please note: Comment Normal [facility] Comment on above: Result Comment: Prot ein electrophoresis scan will follow via computer, mail, or hand lens polisher delivery. Performed By: #### I NFLUAB #### [facility] [address] [address] [address] Ashlie Hills Protein [Mass/Vol] 6.9 g/dL Normal 6.0-8.5 [facility] Comment on above: Performed By: #### I NFLUAB #### [facility] [address] [address] [address] Ashlie Hills C-PEPTIDE, SERUMon C-Peptide, Serum 3.1 ng/mL Normal 1.1-4.4 [facility] Comment on above: Result Comment: C-Pe ptide reference interval is for fasting patients. Performed By: #### C PEPT #### [facility] [address] [place] [address] Dr. Ashlie Hills HEP B SURFACE ANTIGEN SCREEN on 03-04-2022 HBsAg Screen Negative Normal Negative [facility] Comment on above: Performed By: #### C BC #### [facility] [address] [place] [address] Dr. Ashlie Hills HEPATITIS C VIRUS AB W/ REFL EX QUANTon 03-04-2022 HCV AB <0.1 Normal 0.0-0.9 [facility] Comment on above: Performed By: #### I NFLUAB #### [facility] [address] [place] [address] Dr. Ashlie Hills Interpretation: Comment Normal [facility] Comment on above: Result Comment: Nega tive Not infected with HCV, unless recent infection is suspected or other evidence exists to indicate HCV infection. Performed By: #### I NFLUAB #### [facility] [address] [place] [address] Dr. Ashlie Hills MICROALBUMIN/ CREATININE RAT IOon 03-04-2022 Albumin, Urine 367.4 ug/mL Normal Not Estab. [facility] Comment on above: Performed By: #### C BC #### [facility] [address] [place] [address] Dr. Ashlie Hills Albumin/ Creatinine Ratio 239 mg/g creat Critically high 0-29 [facility] Comment on above: Result Comment: Norm al: 0 - 29 Moderately increased: 30 - 300 Severely increased: >300 Performed By: #### C BC #### [facility] [address] [place], [place] [address] Dr. Ashlie Hills Creatinine, Urine 153.9 mg/dL Normal Not Estab. [facility] Comment on above: Performed By: #### C BC #### [facility] [address] [place], [place] [address] Dr. Ashlie Hills VIT D 25-OH LABCORPon 2021 Vitamin D, 25-Hydroxy <4.0 Critically low 30.0-100.0 [facility] Comment on above: Result Comment: Graciela min D deficiency has been defined by the [place] of [employer] and an Endocrine Society practice guideline as a level of serum 25-OH vitamin D less than 20 ng/mL (1,2). The Endocrine Society went on to further define vitamin D insufficiency as a level between 21 and 29 ng/mL (2). 1. IOM ([place] of [employer]). 2010. Dietary reference intakes for calcium and D. [place]: The National Academies Press. 2. Lynda MF, [place], Leandra LOPEZ, et al. Evaluation, treatment, and prevention of vitamin D deficiency: an Endocrine Society clinical practice guideline. JCEM. 2010; 96(7):1911-30. Performed By: #### C BC #### [facility] [address] [address] [address] Ashlie Hills GLYCOHEMOGLOBIN A1Con 2021 ADA RECOMMENDATION SEE BELOW Normal [facility] Comment on above: Result Comment: ADA RECOMMENDED LIMIT 4.0 - 6.0 ADA THERAPEUTIC TARGET < 7.0 ACTION SUGGESTED > 7.0 Performed By: #### C VDAGS #### [facility] [id number] Ashlie Hills Glucose [Mass/Vol] 295 mg/dL Normal [facility] Comment on above: Performed By: #### C VDAGS #### [facility] [address] [place] [address] Dr. Ashlie Hills HbA1c (Bld) [Mass fraction] 11.9 % Critically high 4.5-6.2 [facility] Comment on above: Performed By: #### C VDAGS #### [facility] [address] [place] [address] Dr. Ashlie Hills HEMOGRAM AND PLATELon 2021 Hematocrit (Bld) [Volume fraction] 56.3 % Critically high 36.0-48.0 [facility] Comment on above: Performed By: #### C VDAGS #### [facility] [address] [place] [address] Dr. Ashlie Hills Hemoglobin (Bld) [Mass/Vol] 18.0 g/dL Critically high 12.0-16.0 [facility] Comment on above: Performed By: #### C VDAGS #### [facility] [address] [place] [address] Dr. Ashlie Hills MCH (RBC) [Entitic mass] 29.5 pg Normal 26.7-34.0 [facility] Comment on above: Performed By: #### C VDAGS #### [facility] [address] [place] [address] Dr. Ashlie Hills MCHC (RBC) [Mass/Vol] 32.0 g/dL Normal 29.9-35.2 [facility] Comment on above: Performed By: #### C VDAGS #### [facility] [address] [place] [address] Dr. Ashlie Hills MCV (RBC) [Entitic vol] 92.1 fL Normal 81.0-99.0 [facility] Comment on above: Performed By: #### C VDAGS #### [facility] [address] [place] [address] Dr. Ashlie Hills PLT 123 103/ul Critically low 150-450 [facility] Comment on above: Performed By: #### C VDAGS #### [facility] [address] [place] [address] Dr. Ashlie Hills RBC 6.11 106/ul Critically high 4.20-5.40 [facility] Comment on above: Performed By: #### C VDAGS #### [facility] [address] [address] [address] Ashlie Hills WBC 16.4 103/ul Critically high 4.0-11.0 [facility] Comment on above: Performed By: #### C VDAGS #### [facility] [address] [address] [address] Ashlie Hills LIPID PROFILEon 03-03-2022 CHOL-HDL RATIO NORM SEE BELOW Normal [facility] Comment on above: Result Comment: 3.3 - 4.4 LOW RISK 4.4 - 7.1 AVERAGE RISK 7.1 - 11.0 MODERATE RISK >11.0 HIGH RISK Performed By: #### C VDAGS #### [facility] [address] [address] [address] Ashlie Hills Cholesterol [Mass/Vol] 159 mg/dL Normal <=200 [facility] Comment on above: Performed By: #### C VDAGS #### [facility] [address] [address] [address] Ashlie Hills Cholesterol in HDL [Mass/Vol] 40 mg/dL Normal 40-60 [facility] Comment on above: Performed By: #### C VDAGS #### [facility] [address] [address] [address] Ashlie Hills Cholesterol in LDL [Mass/Vol] 81.8 mg/dL Normal [facility] Comment on above: Performed By: #### C VDAGS #### [facility] [address] [address] [address] Ashlie Hills Cholesterol.total/Ch olesterol in HDL [Mass ratio] 4.0 {ratio} Normal [facility] Comment on above: Performed By: #### C VDAGS #### [facility] [address] [place] [address] Dr. Ashlie Hills HDL NORMAL > or = 60 mg/dl - LOW CARDIOVASCULAR RISK <40 mg/dl - HIGH CARDIOVASCULAR RISK Normal [facility] Comment on above: Performed By: #### C VDAGS #### [facility] [address] [address] [address] Ashlie Hills LDL CALC NORMAL SEE BELOW Normal [facility] Comment on above: Result Comment: <100 mg/dl OPTIMAL 100 - 129 mg/dl NEAR OR ABOVE OPTIMAL 130 - 159 mg/dl BORDERLINE HIGH 160 - 189 mg/dl HIGH >190 mg/dl VERY HIGH Performed By: #### C VDAGS #### [facility] [address] [address] [address] Ashlie Hills Triglyceride [Mass/Vol] 186 mg/dL Critically high <=150 [facility] Comment on above: Performed By: #### C VDAGS #### [facility] [address] [address] [address] Ashlie Hills VLDL CALC 37.2 mg/dL Normal [facility] Comment on above: Performed By: #### C VDAGS #### [facility] [address] [place] [address] Dr. Ashlie Hills RENAL FUNCTION PANELon 03-03 Albumin [Mass/Vol] 3.1 g/dL Critically low 3.4-5.0 [facility] Comment on above: Performed By: #### C BC #### [facility] [address] [place] [address] Dr. Ashlie Hills Calcium [Mass/Vol] 9.2 mg/dL Normal 8.5-10.1 [facility] Comment on above: Performed By: #### C BC #### [facility] [address] [address] [address] Ashlie Hills Chloride [Moles/Vol] 102 mmol/L Normal 98-107 [facility] Comment on above: Performed By: #### C BC #### [facility] [address] [place] [address] Dr. Ashlie Hills CO2 [Moles/Vol] 31.9 mmol/L Normal 21.0-32.0 [facility] Comment on above: Performed By: #### C BC #### [facility] [address] [place] [address] Dr. Ashlie Hills Creatinine [Mass/Vol] 0.68 mg/dL Normal 0.55-1.02 [facility] Comment on above: Performed By: #### C BC #### [facility] [address] [place] [address] Dr. Ashlie Hills EGFR-AF SURINAMESE >60 Normal >=60 [facility] Comment on above: Performed By: #### C BC #### [facility] [address] [address] [address] Ashlie Hills EGFR-NON AF SURINAMESE >60 Normal >=60 [facility] Comment on above: Performed By: #### C BC #### [facility] [address] [address] [address] Ashlie Hills Glucose [Mass/Vol] 131 mg/dL Critically high 74-106 [facility] Comment on above: Performed By: #### C BC #### [facility] [address] [place] [address] Dr. Ashlie Hills Phosphate [Mass/Vol] 4.0 mg/dL Normal 2.6-4.7 [facility] Comment on above: Performed By: #### C BC #### [facility] [address] [place] [address] Dr. Ashlie Hills Potassium [Moles/Vol] 4.0 mmol/L Normal 3.5-5.1 [facility] Comment on above: Performed By: #### C BC #### [facility] [address] [place] [address] Dr. Ashlie Hills Sodium [Moles/Vol] 141 mmol/L Normal 136-145 [facility] Comment on above: Performed By: #### C BC #### [facility] [address] [place] [address] Dr. Ashlie Hills Urea nitrogen [Mass/Vol] 17.0 mg/dL Normal 7.0-18.0 [facility] Comment on above: Performed By: #### C BC #### [facility] [address] [place] [address] Dr. Ashlie Hills UA RANDOM W/MICROSCOPICon BACTERIA NONE SEEN Normal NONE SEEN [facility] Comment on above: Performed By: #### I NFLUAB #### [facility] [address] [address] [address] Ashlie Hills Bilirubin Ql (U) Negative Normal NEGATIVE [facility] Comment on above: Performed By: #### I NFLUAB #### [facility] [address] [address] [address] Ashlie Hills CAST NONE SEEN Normal NONE SEEN [facility] Comment on above: Performed By: #### I NFLUAB #### [facility] [address] [address] [address] Ashlie Hills Clarity (U) CLEAR Normal CLEAR [facility] Comment on above: Performed By: #### I NFLUAB #### [facility] [address] [place] [address] Dr. Ashlie Hills Color (U) YELLOW Normal YELLOW [facility] Comment on above: Performed By: #### I NFLUAB #### [facility] [address] [place] [address] Dr. Ashlie Hills Crystals LM Nom (Urine sed) NONE SEEN Normal NONE SEEN [facility] Comment on above: Performed By: #### I NFLUAB #### [facility] [address] [place] [address] Dr. Ashlie Hills Epithelial cells LM Ql (Urine sed) FEW Abnormal NONE SEEN /RARE [facility] Comment on above: Performed By: #### I NFLUAB #### [facility] [address] [place] [address] Dr. Ashlie Hills Glucose Ql (U) Negative Normal NEGATIVE [facility] Comment on above: Performed By: #### I NFLUAB #### [facility] [address] [place] [address] Dr. Ashlie Hills Hemoglobin Ql (U) Negative Normal NEGATIVE [facility] Comment on above: Performed By: #### I NFLUAB #### [facility] [address] [place] [address] Dr. Ashlie Hills Ketones Ql (U) Negative Normal NEGATIVE [facility] Comment on above: Performed By: #### I NFLUAB #### [facility] [address] [place] [address] Dr. Ashlie Hills LEUKOCYTES Negative Normal NEGATIVE [facility] Comment on above: Performed By: #### I NFLUAB #### [facility] [address] [place] [address] Dr. Ashlie Hills MUCOUS NONE SEEN Normal NONE SEEN [facility] Comment on above: Performed By: #### I NFLUAB #### [facility] [address] [place] [address] Dr. Ashlie Hills Nitrite Ql (U) Negative Normal NEGATIVE [facility] Comment on above: Performed By: #### I NFLUAB #### [facility] [address] [place] [address] Dr. Ashlie Hills pH (U) 5.5 [pH] Normal 5-9 [facility] Comment on above: Performed By: #### I NFLUAB #### [facility] [address] [place] [address] Dr. Ashlie Hills RBC 0-2 Normal 0-2 [facility] Comment on above: Performed By: #### I NFLUAB #### [facility] [address] [place] [address] Dr. Ashlie Hills SPEC GRAVITY >=1.030 Abnormal 1.005-<=1.025 [facility] Comment on above: Performed By: #### I NFLUAB #### [facility] [address] [place] [address] Dr. Ashlie Hills UA PROTEIN 100 mg/dl Abnormal NEGATIVE/ TRACE [facility] Comment on above: Performed By: #### I NFLUAB #### [facility] [address] [place] [address] Dr. Ashlie Hills Urobilinogen Qn (U) 0.2 {Little'U}/dL Normal 0.2 - 1. 0 [facility] Comment on above: Performed By: #### I NFLUAB #### [facility] [address] [place] [address] Dr. Ashlie Hills WBC NONE SEEN Normal NONE SEEN [facility] Comment on above: Performed By: #### I NFLUAB #### [facility] [address] [place] [address] Dr. Ashlie Hills URIC ACID SERUMon 03-03-2022 Urate [Mass/Vol] 5.0 mg/dL Normal 2.6-6.0 [facility] Comment on above: Performed By: #### I NFLUAB #### [facility] [address] [place] [address] Dr. Ashlie Hills URINE T PROTEIN CREAT RATIOo n 03-03-2022 Protein (U) [Mass/Vol] 77.9 mg/dL Critically high <=12.0 [facility] Comment on above: Performed By: #### C VDAGS #### [facility] [address] [place] [address] Dr. Ashlie Hills UR PROT CREAT RAT 0.44 Normal [facility] Comment on above: Performed By: #### C VDAGS #### [facility] [address] [place] [address] Dr. Ashlie Hills URINE CREAT 175.15 mg/dL Normal 20.00-300.00 [facility] Comment on above: Performed By: #### C VDAGS #### [facility] [address] [place] [address] Dr. Ashlie Hills CULTURE URINEon 12-25-2021 CULTURE URINE Culture Observations: GREATER THAN TWO ORGANISMS PRESENT, HEAVILY MIXED. PLEASE RESUBMIT CLEAN CATCH MID-STREAM URINE IF CLINICALLY INDICATED. Normal [facility] Comment on above: Performed By: #### I NFLUAB #### [facility] [address] [place] [address] Dr. Ashlie Hills CBC AUTO DIFFon 12-24-2021 BASO # 0.1 103/ul Normal 0.0-0.1 [facility] Comment on above: Performed By: #### C BC #### [facility] [address] [place] [address] Dr. Ashlie Hills Basophils/100 WBC (Bld) 0.5 % Normal 0.2-2.0 [facility] Comment on above: Performed By: #### C BC #### [facility] [address] [address] [address] Ashlie Hills EO # 0.4 103/ul Normal 0.0-0.7 [facility] Comment on above: Performed By: #### C BC #### [facility] [address] [place] [address] Dr. Ashlie Hills Eosinophils/100 WBC (Bld) 2.4 % Normal 0.9-7.0 [facility] Comment on above: Performed By: #### C BC #### [facility] [address] [place] [address] Dr. Ashlie Hills Erythrocyte distribution width (RBC) [Ratio] 14.1 % Normal 11.0-15.0 [facility] Comment on above: Performed By: #### C BC #### [facility] [address] [place] [address] Dr. Ashlie Hills Hematocrit (Bld) [Volume fraction] 55.9 % Critically high 36.0-48.0 [facility] Comment on above: Performed By: #### C BC #### [facility] [address] [place] [address] Dr. Ashlie Hills Hemoglobin (Bld) [Mass/Vol] 17.9 g/dL Critically high 12.0-16.0 [facility] Comment on above: Performed By: #### C BC #### [facility] [address] [place] [address] Dr. Ashlie Hills IG # 0.06 10e3/ul Critically high 0.00-0.03 [facility] Comment on above: Performed By: #### C BC #### [facility] [address] [place] [address] Dr. Ashlie Hills IG % 0.4 % Normal 0.0-0.5 [facility] Comment on above: Performed By: #### C BC #### [facility] [address] [place] [address] Dr. Ashlie Hills LYMPH # 5.8 103/ul Critically high 1.2-3.8 [facility] Comment on above: Performed By: #### C BC #### [facility] [address] [place] [address] Dr. Ashlie Hills Lymphocytes/100 WBC (Bld) 35.4 % Normal 20.5-60.0 [facility] Comment on above: Performed By: #### C BC #### [facility] [address] [place] [address] Dr. Ashlie Hills MANUAL DIFF REQ NO Normal [facility] Comment on above: Performed By: #### C BC #### [facility] [address] [place] [address] Dr. Ashlie Hills MCH (RBC) [Entitic mass] 29.4 pg Normal 26.7-34.0 [facility] Comment on above: Performed By: #### C BC #### [facility] [address] [place] [address] Dr. Ashlie Hills MCHC (RBC) [Mass/Vol] 32.0 g/dL Normal 29.9-35.2 [facility] Comment on above: Performed By: #### C BC #### [facility] [address] [place] [address] Dr. Ashlie Hills MCV (RBC) [Entitic vol] 91.8 fL Normal 81.0-99.0 [facility] Comment on above: Performed By: #### C BC #### [facility] [address] [place] [address] Dr. Ashlie Hills MONO # 0.8 103/ul Normal 0.3-0.8 [facility] Comment on above: Performed By: #### C BC #### [facility] [address] [place] [address] Dr. Ashlie Hills Monocytes/100 WBC (Bld) 4.8 % Normal 1.7-12.0 [facility] Comment on above: Performed By: #### C BC #### [facility] [address] [place] [address] Dr. Ashlie Hills NEUT # 9.3 103/ul Critically high 1.4-6.5 [facility] Comment on above: Performed By: #### C BC #### [facility] [address] [place] [address] Dr. Ashlie Hills Neutrophils/100 WBC (Bld) 56.5 % Normal 43.0-75.0 [facility] Comment on above: Performed By: #### C BC #### [facility] [address] [address] [address] Ashlie Hills Platelet mean volume (Bld) [Entitic vol] 12.9 fL Normal 9.5-13.5 [facility] Comment on above: Performed By: #### C BC #### [facility] [address] [place] [address] Dr. Ashlie Hills PLT 127 103/ul Critically low 150-450 [facility] Comment on above: Performed By: #### C BC #### [facility] [address] [place] [address] Dr. Ashlie Hills RBC 6.09 106/ul Critically high 4.20-5.40 [facility] Comment on above: Performed By: #### C BC #### [facility] [address] [place] [address] Dr. Ashlie Hills WBC 16.4 103/ul Critically high 4.0-11.0 [facility] Comment on above: Performed By: #### C BC #### [facility] [address] [place] [address] ABD/PELVIS WO CONon [...] Severe right hip degenerative change. Normal [facility] ER URINE PROFILEon 2 Bilirubin Ql (U) Negative Normal NEGATIVE [facility] Comment on above: Performed By: #### E EVONNE LYMAN #### [facility] [address] [place], [place] [address] Dr. Ashlie Hills Clarity (U) CLEAR Normal CLEAR [facility] Comment on above: Performed By: #### E EVONNE LYMAN #### [facility] [address] [place] [address] Dr. Ashlie Hills Color (U) DK. ORANGE Abnormal YELLOW [facility] Comment on above: Performed By: #### PEREZ DIAZICRO #### [facility] [address] [place] [address] Dr. Ashlie HOBBS A micrscopic examination will be performed if indicated. Normal [facility] Comment on above: Performed By: #### Tracey LYMAN UMICRO #### [facility] [address] [place] [address] Dr. Ashlie Hills Glucose Ql (U) 250 mg/dl Abnormal NEGATIVE [facility] Comment on above: Performed By: #### Tracey LYMAN UMICRO #### [facility] [address] [place] [address] Dr. Ashlie Hills Hemoglobin Ql (U) Negative Normal NEGATIVE [facility] Comment on above: Performed By: #### Tracey LYMAN UMICRO #### [facility] [address] [place] [address] Dr. Ashlie Hills Ketones Ql (U) Negative Normal NEGATIVE [facility] Comment on above: Performed By: #### Tracey LYMAN UMICRO #### [facility] [address] [place] [address] Dr. Ashlie Hills LEUKOCYTES Negative Normal NEGATIVE [facility] Comment on above: Performed By: #### Tracey LYMAN UMICRO #### [facility] [address] [place] [address] Dr. Ashlie Hills Nitrite Ql (U) Negative Normal NEGATIVE [facility] Comment on above: Performed By: #### Tracey LYMAN UMICRO #### [facility] [address] [place] [address] Dr. Ashlie Hills pH (U) 5.0 [pH] Normal 5-9 [facility] Comment on above: Performed By: #### Tracey LYMAN UMICRO #### [facility] [address] [place] [address] Dr. Ashlie Hills Protein (U) [Mass/Vol] 100 mg/dL Abnormal NEGATIVE/ TRACE [facility] Comment on above: Performed By: #### E MADELINE LYMANRO #### [facility] [address] [place] [address] Dr. Ashlie Hills SPEC GRAVITY >=1.030 Abnormal 1.005-<=1.025 [facility] Comment on above: Performed By: #### PEREZ DIAZICRO #### [facility] [address] [place] [address] Dr. Ashlie Hills UR MICRO IND INDICATED Normal [facility] Comment on above: Performed By: #### E PEREZ LYMANICRO #### [facility] [address] [place] [address] Dr. Ashlie Hills Urobilinogen Qn (U) 1.0 {Little'U}/dL Normal 0.2 - 1. 0 [facility] Comment on above: Performed By: #### MADELINE DIAZRO #### [facility] [address] [place] [address] Dr. Ashlie Hills PROF CHEM 8 (BAS METB)on Anion gap [Moles/Vol] 12.1 mmol/L Normal [facility] Comment on above: Performed By: #### I NFLUAB #### [facility] [address] [place] [address] Dr. Ashlie Hills Calcium [Mass/Vol] 9.0 mg/dL Normal 8.5-10.1 [facility] Comment on above: Performed By: #### I NFLUAB #### [facility] [address] [place] [address] Dr. Ashlie Hills Chloride [Moles/Vol] 101 mmol/L Normal 98-107 [facility] Comment on above: Performed By: #### I NFLUAB #### [facility] [address] [place] [address] Dr. Ashlie Hills CO2 [Moles/Vol] 29.1 mmol/L Normal 21.0-32.0 [facility] Comment on above: Performed By: #### I NFLUAB #### [facility] [address] [place] [address] Dr. Ashlie Hills Creatinine [Mass/Vol] 0.86 mg/dL Normal 0.55-1.02 [facility] Comment on above: Performed By: #### I NFLUAB #### [facility] [address] [place] [address] Dr. Ashlie Hills EGFR-AF SURINAMESE >60 Normal >=60 [facility] Comment on above: Performed By: #### I NFLUAB #### [facility] [address] [place] [address] Dr. Ashlie Hills EGFR-NON AF SURINAMESE >60 Normal >=60 [facility] Comment on above: Performed By: #### I NFLUAB #### [facility] [address] [place] [address] Dr. Ashlie Hills Glucose [Mass/Vol] 236 mg/dL Critically high 74-[address] [facility] Comment on above: Performed By: #### I NFLUAB #### [facility] [address] [place] [address] Dr. Ashlie Hills Potassium [Moles/Vol] 4.2 mmol/L Normal 3.5-5.1 [facility] Comment on above: Performed By: #### I NFLUAB #### [facility] [address] [place] [address] Dr. Ashlie Hills Sodium [Moles/Vol] 138 mmol/L Normal 136-145 [facility] Comment on above: Performed By: #### I NFLUAB #### [facility] [address] [place] [address] Dr. Ashlie Hills Urea nitrogen [Mass/Vol] 11.0 mg/dL Normal 7.0-18.0 [facility] Comment on above: Performed By: #### I NFLUAB #### [facility] [address] [place] [address] Dr. Ashlie Hills Urea nitrogen/Creatinine [Mass ratio] 12.8 mg/mg Normal [facility] Comment on above: Performed By: #### I NFLUAB #### [facility] [address] [place] [address] Dr. Ashlie Hills URINE MICROSCOPIC ONLYon BACTERIA SMALL Abnormal NONE SEEN [facility] Comment on above: Performed By: #### E JIMMYR, UMICRO #### [facility] [address] [place] [address] Dr. Ashlie Hills Bacteria identified Cx Nom (U) INDICATED Normal [facility] Comment on above: Performed By: #### E RUR, UMICRO #### [facility] [address] [place] [address] Dr. Ashlie Hills CAST NONE SEEN Normal NONE SEEN [facility] Comment on above: Performed By: #### E RUR, UMICRO #### [facility] [address] [place] [address] Dr. Ashlie Hills Crystals LM Nom (Urine sed) NONE SEEN Normal NONE SEEN [facility] Comment on above: Performed By: #### E RUR, UMICRO #### [facility] [address] [place] [address] Dr. Ashlie Hills Epithelial cells LM Ql (Urine sed) MODERATE Abnormal NONE SEEN /RARE [facility] Comment on above: Performed By: #### Tracey LYMAN UMICRO #### [facility] [address] [place] [address] Dr. Ashlie Hills MUCOUS NONE SEEN Normal NONE SEEN [facility] Comment on above: Performed By: #### E RUR, UMICRO #### [facility] [address] [place] [address] Dr. Ashlie Hills RBC 0-2 Normal 0-2 [facility] Comment on above: Performed By: #### Tracey RUR UMICRO #### [facility] [address] [place] [address] Dr. Ashlie Hills WBC 0-2 Abnormal NONE SEEN [facility] Comment on above: Performed By: #### E RUR, UMICRO #### [facility] [address] [place] [address] Dr. Ashlie Hills YEAST PRESENT Abnormal NONE SEEN [facility] Comment on above: Performed By: #### E JIMMYR, UMICRO #### [facility] [address] [place] [address] Dr. Ashlie Hills HIP RIGHT 1 OR 2 VWS WITH PE LVISon 07-20-2020 HIP RIGHT 1 OR 2 VWS WITH PELVIS [facility] Department of Radiology [address] [place] [id number] Patient Name: MITZI MACIAS : 1970 Sex: F Age: Race: White Pt. Location: Patient Status: O Ordered Date: 07/20/2020 1:45:00 PM Completed Date: 07/20/2020 01:57 PM Requesting Provider: LIZ EISENBERG Attending Provider: LIZ EISENBERG Report Copy To: MCKAYLA BLAS Signs & Symptoms: M25.551 Pain in right hip I10 History: Robbins Comments: evaluate Exam: HIP RIGHT 1 OR [...] MRI. Electronically signed: Pipo Acevedo. Transcribed by: [email or web address], User Resident: Electronically Signed by: PIPO ACEVEDO @ 07/20/2020 03:45 PM Normal [facility] Comment on above: Order Comment: evalu ate Vital Signs Date Time Vital Sign Value Performing Clinician Facility 04-14-2024 10:27-0400 Body height 165.1 cm Mckayla Blas CALENDER LET OFF OPERATOR Work Phone: [facility] 04-14-2024 10:27-0400 Body mass index (BMI) [Ratio] 61.01 kg/m2 Mckayla Rosenbergz CALENDER LET OFF OPERATOR Work Phone: [facility] 04-14-2024 10:27-0400 Body temperature 98.49 [degF] Mckayla Rosenbergz CALENDER LET OFF OPERATOR Work Phone: [facility] 04-14-2024 10:27-0400 Body weight 166.29 kg Mckaylajuvenal Patriciaholz CALENDER LET OFF OPERATOR Work Phone: [facility] 04-14-2024 10:27-0400 Diastolic blood pressure 80 mm[Hg] Mckayla Rosenbergz CALENDER LET OFF OPERATOR Work Phone: [facility] 04-14-2024 10:27-0400 Heart rate 77 /min Mckayla Rosenbergz CALENDER LET OFF OPERATOR Work Phone: [facility] 04-14-2024 10:27-0400 Respiratory rate 19 /min Mckaylajuvenal Patriciaholz CALENDER LET OFF OPERATOR Work Phone: [facility] 04-14-2024 10:27-0400 SaO2% (BldA) [Mass fraction] 92 % Mckayla Rosenbergz CALENDER LET OFF OPERATOR Work Phone: [facility] 04-14-2024 10:27-0400 Systolic blood pressure 116 mm[Hg] Mckayla Rosenbergz CALENDER LET OFF OPERATOR Work Phone: [facility] 03-08-2022 15:00-0400 Body height 170.18 cm Stephanie Tico Other [employer] Other 03-08-2022 15:00-0400 Body temperature 97.6 [degF] Stephanie Tico Other [employer] Other 03-08-2022 15:00-0400 Diastolic blood pressure 72 mm[Hg] Stephanie Tico Other [employer] Other 03-08-2022 15:00-0400 Respiratory rate 20 /min Stephanie Tico Other [employer] Other 03-08-2022 15:00-0400 SaO2% (BldA) [Mass fraction] 91 % Stephanie Tico Other [employer] Other 03-08-2022 15:00-0400 Systolic blood pressure 131 mm[Hg] Stephanie Tico Other [employer] Other 02-20-2022 09:20-0400 Body height 170.18 cm Stephanie Tico Other [employer] Other 02-20-2022 09:20-0400 Body temperature 96.5 [degF] Stephanie Tico Other [employer] Other 02-20-2022 09:20-0400 Diastolic blood pressure 69 mm[Hg] Stephanie Tico Other [employer] Other 02-20-2022 09:20-0400 Respiratory rate 20 /min Stephanie Tico Other [employer] Other 02-20-2022 09:20-0400 SaO2% (BldA) [Mass fraction] 91 % Stephanie Tico Other [employer] Other 02-20-2022 09:20-0400 Systolic blood pressure 129 mm[Hg] Stephanie Tico Other [employer] Other 02-06-2022 10:24-0400 Blood Pressure Location Elbert ARAUZ [facility] 02-06-2022 10:24-0400 Diastolic blood pressure 76 mm[Hg] Elbert ARAUZ [facility] 02-06-2022 10:24-0400 Heart rate 70 /min Elbert ARAUZ [facility] 02-06-2022 10:24-0400 Respiratory rate 16 /min Elbert ARAUZ [facility] 02-06-2022 10:24-0400 Systolic blood pressure 134 mm[Hg] Elbert ARAUZ [facility] Encounters Encounter Date Encounter Type Care Provider Facility Start: 06-04-2024 ambulatory SARAH E SILVIA Facili ty:[facility] Start: 05-12-2024 End: 05-12-2024 Clinisync Result Encounter Generic External Data Provider [facility] Unsolicited Start: 05-12-2024 End: 05-12-2024 Clinisync Result Encounter Generic External Data Provider [facility] External [facility] Unsolicited Start: 05-08-2024 ambulatory SARAH E SILVIA Facili ty:SHEA Villalobos Start: 04-14-2024 End: 04-14-2024 Bamboo flowsheet Mckayla Blas CALENDER LET OFF OPERATOR Work Phone: [facility] Start: 04-14-2024 End: 04-14-2024 Bamboo flowsheet Mckayla Blas CALENDER LET OFF OPERATOR Work Phone: [facility] Start: 04-14-2024 End: 04-14-2024 Office outpatient visit 25 minutes Mckayla Aichholz CALENDER LET OFF OPERATOR Work Phone: [facility] Comment on above: Primary hypertension (CMS/HCC) (Primary Dx); Insomnia; Type 2 diabetes mellitus with complication, with long-term current use of insulin ([facility]); Non-seasonal allergic rhinitis, unspecified trigger; Type 2 diabetes mellitus with unspecified complications (CMS/HCC); Anxiety and depression ([facility]); Gastro-esophageal reflux disease without esophagitis; Edema, unspecified; Edema; Diabetic polyneuropathy associated with type 2 diabetes mellitus (CMS/HCC); Chronic obstructive pulmonary disease, unspecified (CMS/[facility]); Pulmonary emphysema, unspecified emphysema type ([facility]); Bilateral lower extremity edema; Tobacco user; Hyperpigmentation of skin Start: 04-14-2024 End: 04-14-2024 ambulatory MCKAYLA AICHHOLZ Not Available Start: 01-17-2024 Patient encounter procedure Mckayla Aichholz CALENDER LET OFF OPERATOR Work Phone: [facility] Start: 01-17-2024 End: 01-17-2024 ambulatory MCKAYLA AICHHOLZ Not Available Start: 11-15-2023 End: 11-15-2023 ambulatory MCKAYLA AICHHOLZ Not Available Start: 11-14-2023 End: 11-14-2023 ambulatory [facility] Start: 11-01-2023 End: 11-01-2023 ambulatory MCKAYLA AICHHOLZ Not Available Start: 09-27-2023 End: 09-27-2023 ambulatory MCKAYLA AICHHOLZ Not Available Start: 08-17-2023 Refill Mckayla Aichholz CALENDER LET OFF OPERATOR Work Phone: [facility] Comment on above: Vaginal yeast infect ion (Primary Dx) Start: 08-14-2023 Refill Mckayla Aichholz CALENDER LET OFF OPERATOR Work Phone: [facility] Comment on above: Type 2 diabetes asiya itus with unspecified complications ([facility]); Edema, unspecified; Edema Start: 07-10-2023 End: 07-10-2023 ambulatory MCKAYLA AICHHOLZ Not Available Start: 12-05-2022 ambulatory NARENDRANATH LAKSHMIPATHY . Facility: Start: 12-05-2022 End: 12-06-2022 Evaluation and management of inpatient UMBERTO CANTU . Facility:[facility] Start: 11-23-2022 End: 11-23-2022 ambulatory SAYDA PATRICIARAVIJuanis Facility:[facility] Start: 11-22-2022 End: 11-23-2022 ambulatory SAYDA PATRICIARAVIJuanis Facility:[facility] Start: 11-17-2022 End: 11-18-2022 ambulatory SUBHAHS GASPAR . Facility:[facility] Start: 11-15-2022 End: 11-15-2022 Patient encounter procedure SARAH Tracey GANRY [facility] Start: 10-05-2022 End: 10-05-2022 ambulatory MARIANO LOZANO . Facility:[facility] Start: 09-21-2022 End: 09-21-2022 ambulatory SAYDA ASENCIO LARACayetanoRAVIJuanis Facility:[facility] Start: 09-14-2022 ambulatory RAFAEL GONGORA Facilit [...] Facility:[facility] Start: 03-08-2022 End: 03-08-2022 ambulatory Stephanie Cortés Other [employer] Other Start: 03-08-2022 Office outpatient vi sit 15 minutes Stephanie Tico [facility] Start: 03-03-2022 End: 03-04-2022 ambulatory MANAGER ELIGIBILITY MCKAYLA BLAS Facility:[facility] Start: 02-20-2022 End: 02-20-2022 ambulatory Stephanie Tico Other [employer] Other Start: 02-20-2022 Office outpatient ne w 45 minutes Stephanie Tico [facility] Start: 02-06-2022 End: 02-06-2022 Patient encounter procedure Elbert ARAUZ [facility] Start: 01-19-2022 End: 01-20-2022 ambulatory GIL VALENZUELA . Facility: Start: 12-24-2021 End: 12-24-2021 ambulatory OLE RAMIREZ Facility: Start: 08-26-2020 End: 09-10-2020 Patient encounter procedure ANISHAOLEGARIO GABINOLOS Facility:[facility] Start: 10-30-2019 End: 10-30-2019 Emergency department patient visit [facility] Start: 10-30-2019 End: 10-30-2019 Emergency department patient visit [facility] Emergency Department Start: 11-02-2016 Preoperative state Stephanie Tico Other [employer] Other Procedures Date Procedure Procedure Detail Performing Clinician Start: 05-12-2024 [facility] CREATININE Generic External Data Provider Start: 12-14-2023 Mammography Mckayla clifford CALENDER LET OFF OPERATOR Work Phone: Start: 11-22-2022 Mammography Mckayla clifford CALENDER LET OFF OPERATOR Work Phone: Start: 10-08-2015 Microscopic observat ion [Identifier] in Cervix by Cyto stain Mckayla Blas CALENDER LET OFF OPERATOR Work Phone: H/O: hysterectomy Elbert LARA Laparoscopic cholecystectomy Elbert ARAUZ Operative procedure on foot Elbert ARAUZ Plan of Treatment Date Care Activity Detail Author Start: 08-03-2025 Screening for malignant neoplasm of colon [facility] Start: 01-16-2025 Medicare Annual Wellness (AWV) Medicare Annual Wellness (AWV) [facility] Start: 12-13-2024 Screening for malignant neoplasm of breast Mammogram [facility] Start: 11-11-2024 Urine screening for protein Diabetes: Urine Protein Screening [facility] Start: 07-14-2024 End: 07-14-2024 Patient encounter procedure 07/14/2024 6:30 PM EST Office Visit [facility] [address] [place] [address] Mckayla Blas, SILVANO [address] [place] [address] [facility] Start: 07-14-2024 End: 07-14-2024 Patient encounter procedure 07/14/2024 10:10 AM EST Office Visit [facility] [address] [place] [phone] Rain Souza MD [address] [place] [address] [facility] Start: 06-06-2024 Influenza vaccination Influenza Vacc ine (#1) [facility] Comment on above: Postponed from 03/09 (Patient Refused) Start: 05-27-2024 End: 05-27-2024 Patient encounter procedure 05/27/2024 9:50 AM EST Office Visit [facility] [address] [place] [phone] Rain Souza MD [address] [place] [address] [facility] Start: 05-17-2024 Hemoglobin A1c measurement Diabetes: Hemoglobin A1C [facility] Start: 05-15-2024 End: 05-15-2024 Chart abstracting 05/15/2024 Abstract [facility] [address] [place] [address] Rain Souza MD [address] [place] [address] [facility] Start: 05-15-2024 End: 05-15-2024 Patient encounter procedure 05/15/2024 11:20 AM EST Office Visit [facility] [address] [place] [address] Rain Souza MD [address] [place] [address] [facility] Start: 04-14-2024 End: 04-14-2024 Patient encounter procedure 04/14/2024 11:00 AM EDT Office Visit [facility] [address] [place] [address] Mckayla Blas, CALENDER LET OFF OPERATOR [address] [place] [address] Arrived [facility] Comment on above: Arrived Start: 03-09-2024 Influenza vaccination Influenza Vacc ine (#1) [facility] Start: 02-19-2024 Hemoglobin A1c measurement Diabetes: Hemoglobin A1C [facility] Start: 11-24-2023 Urine screening for protein Diabetes: Urine Protein Screening [facility] Start: 11-23-2023 Screening for malignant neoplasm of breast Mammogram [facility] Start: 10-15-2023 End: 10-15-2023 Patient encounter procedure 10/15/2023 4:30 PM EDT Office Visit [facility] [address] [place] [address] Mckayla Blas, SILVANO [address] [place] [address] [facility] Start: 08-09-2023 Hemoglobin A1c measurement Diabetes: Hemoglobin A1C [facility] Start: 05-27-2021 Glaucoma screening Diabetes: R etinopathy Screening [facility] Start: 03-09-2020 Influenza vaccination Flu vacc ine (Season Ended) [place], [place] Start: 10-07-2018 Screening for malignant neoplasm of cervix [facility] Start: 2010 Lipid panel Lipid screen [place], [place] Start: 2000 Screening for malignant neoplasm of cervix HPV/Cotest [facility] Start: 1991 Screening for malignant neoplasm of cervix Cervical cancer screen [place], [place] Start: 1989 DTaP/Tdap/Td vaccine (1 - Tdap) DTaP/Tdap/Td vaccine ( - Tdap) [place], [place] Start: 1985 HIV screening HIV screen [place], [place] Start: 1970 Medicare Annual Wellness (AWV) Medicare Annual Wellness (AWV) [facility] Start: 1970 Screening for malignant neoplasm of colon [facility] Immunizations Immunization Date Immunization Notes Care Provider [facility] 05-18-2023 influenza, injectabl e, quadrivalent, contains preservative Mckayla Blas NP Work Phone: [facility] 05-18-2023 influenza virus vacc ine, unspecified formulation Mckayla Blas NP Work Phone: [facility] 07-19-2021 SARS-CoV-2 (COVID-19 ) mRNA BNT-162b2 vax SARAH VEGA [facility] 10-28-2020 SARS-CoV-2 (COVID-19 ) mRNA BNT-162b2 vax SARAH VEGA [facility] 10-08-2020 SARS-CoV-2 (COVID-19 ) mRNA BNT-162b2 vax SARAH VEGA [facility] 04-16-2017 influenza virus vacc ine, unspecified formulation Mckayla Aichholz CALENDER LET OFF OPERATOR Work Phone: [facility] 04-16-2017 pneumococcal polysaccharide vaccine, 23 valent Mckayla Aichholz CALENDER LET OFF OPERATOR Work Phone: [facility] 05-10-2016 influenza virus vacc ine, unspecified formulation Mckayla Aichholz CALENDER LET OFF OPERATOR Work Phone: [facility] 05-02-2013 influenza virus vacc ine, whole virus Mckayla Aichholz CALENDER LET OFF OPERATOR Work Phone: [facility] 01-29-1998 measles, mumps and rubella virus vaccine Mckayla Aichholz CALENDER LET OFF OPERATOR Work Phone: [facility] Payers Date Payer Category Payer Medicare (Managed Care) [employer] [id number] 2023 Private Health Insurance [facility] [id number] 2023-Present [address] [address] [place] [address] [id number] 2023 Private Health Insurance [id number] 2023 Medicare [id number] 2018 Medicaid MEDICAID [facility] [id number] 2018-Present [phone] [address] [place] [address] Medicaid [id number] 2017 Medicare [id number]. [id number] 1970 Unknown [id number] 2.16.840.1.372578.3.579.2. 647 1970 Unknown [id number] 2.16.840.1.547360.3.579.2. 593 1970 Unknown [id number] 2.16.840.1.011509.3.579.2. 593 1970 Unknown [id number] 2.16.840.1.773106.3.579.2. 593 1970 Unknown [id number] 2.16.840.1.187715.3.579.2. 593 1970 Unknown [id number] 2.16.840.1.634932.3.579.2. 593 1970 Unknown [id number] 2.16.840.1.880374.3.579.2. 593 1970 Unknown [id number] 2.16.840.1.214495.3.579.2. 593 1970 Unknown [id number] 2.16.840.1.033985.3.579.2. 593 1970 Unknown [id number] 2.16.840.1.036861.3.579.2. 593 1970 Unknown [id number] 2.16.840.1.335815.3.579.2. 593 1970 Unknown [id number] 2.16.840.1.326861.3.579.2. 593 1970 Unknown [id number] 2.16.840.1.306176.3.579.2. 593 1970 Unknown [id number] 2.16.840.1.805340.3.579.2. 593 1970 Unknown [id number] 2.16.840.1.174742.3.579.2. 593 1970 Unknown [id number] 2.16.840.1.665728.3.579.2. 593 1970 Unknown [id number] 2.16.840.1.443662.3.579.2. 593 1970 Unknown [id number] 2.16.840.1.564482.3.579.2. 593 1970 Unknown [id number] 2.16.840.1.901806.3.579.2. 593 1970 Unknown [id number] 2.16.840.1.529367.3.579.2. 593 1970 Unknown [id number] 2.16.840.1.518717.3.579.2. 593 1970 Unknown [id number] 2.16.840.1.196492.3.579.2. 593 1970 Unknown [id number] 2.16.840.1.504071.3.579.2. 593 1970 Unknown [id number] 2.16.840.1.179693.3.579.2. 1259 1970 Unknown [id number] 2.16.840.1.990988.3.579.2. 1259 1970 Unknown [id number] 2.16.840.1.930387.3.579.2. 1259 1970 Unknown [id number] 2.16.840.1.082805.3.579.2. 1259 1970 Unknown [id number] 2.16.840.1.652281.3.579.2. 1259 1970 Unknown [id number] 2.16.840.1.507523.3.579.2. 1259 1970 Unknown [id number] 2.16.840.1.664532.3.579.2. 727 1970 Unknown [id number] 2.16.840.1.162941.3.579.2. 727 1959 Medicaid [id number] 1959 Private Health Insurance [id number] 1959 Unknown [id number] 2.16.840.1.052526.19 Social History Date Type Detail Facility Start: 02-17-2014 End: 07-10-2023 Tobacco smoking status NHIS Current every day smoker [place], [place] Start: 02-17-1994 History of tobacco use Cigarette Smo ker [place] Start: 02-17-2014 End: 07-10-2023 Cigarettes smoked current (pack per day) - Reported [place] Start: 02-17-2014 Alcohol intake Current drinke r of alcohol (finding) [place] Start: 02-17-2014 Alcohol Comment Rare [facility] [place], [place] Start: 1970 Sex Assigned At Not on file [place] Exposure to SARS-CoV -2 (event) Unable to assess [place] Start: 02-06-2022 Tobacco smoking status Smoker (findi ng) [facility] Start: 07-10-2023 End: 01-17-2024 Sex Assigned At Female [facility] Start: 11-15-2022 Tobacco smoking status Heavy t obacco smoker (finding) [facility] Start: 07-10-2023 Tobacco use and exposure Smoke less tobacco non-user [facility] Start: 07-10-2023 End: 04-29-2024 Alcohol intake Lifetime non-drinker (finding) [facility] [...] Equipment Origin al Text Equipment Identifier Dates [id number] Start: 01-18-2024 Functional Status Date Assessment Result Facility 11-15-2022 Functional Status N/A [facility] 02-06-2022 Functional Status N/A [facility] Clinical Notes 01-19-2022 to 04-14-2024 Mckayla Blas [...] with long-term current use of insulin (CMS/HCC) Check blood sugars daily, follow w Endo. [...] carbohydrates, and simple sugars. Continue with dr souza for mgmt, and recommend diabetic eye exam [...] being taken. She does not see a linotype operator.Eye exam is not current. Hypertension This is [...] or chew. ergocalciferol (Vitamin D2) 1.25 MG (27711 UT) capsule TAKE 1 CAPSULE BY MOUTH ONE TIME PER WEEK furosemide (LASIX) 20 mg, Oral, Daily PRN, Take in the afternoon as needed furosemide (LASIX) 40 mg, Oral, Daily Glucose Blood (ACCU-CHEK JAQUI PLUS ) 4 times daily HumaLOG KWIKPEN 100 UNIT/ML injection Subcutaneous hydrALAZINE (APRESOLINE) 25 mg, Oral, 2 times daily HYDROcodone-acetaminophen (Orchard) 5-325 MG tablet 1 tablet, 3 times [...] CT Albuminuria 09/17/2023 Angiomyolipoma Anxiety and depression ([facility]) 07/10/2023 Asthma ([facility]) 07/10/2023 Cellulitis of left lower extremity Cervical cancer ([facility] [facility]) 09/17/2023 Chronic pain of both knees 09/17/2023 COPD (chronic obstructive pulmonary disease) ([facility]) 07/10/2023 COPD exacerbation ([facility]) 09/17/2023 Decreased functional mobility 09/17/2023 Diabetic neuropathy ([facility]) 07/10/2023 Edema 07/10/2023 Elevated sed rate Elevated WBC count GERD (gastroesophageal reflux disease) 09/17/2023 Hyperlipidemia ([facility]) 09/17/2023 Hypertension ([facility]) 07/10/2023 Insomnia 09/17/2023 Lower extremity edema 09/17/2023 Obstructive sleep apnea 07/10/2023 PAD (peripheral artery disease) ([facility]) 09/17/2023 Pancreatitis 09/17/2023 Pneumonia 09/17/2023 Pulmonary hypertension ([facility]) 09/17/2023 Radiculopathy, lumbar region 09/17/2023 Tobacco user 09/17/2023 Type 2 diabetes mellitus with complication, with long-term current use of insulin ([facility]) 07/10/2023 Unilateral primary osteoarthritis, right [...] List Items Addressed This Visit Diabetic neuropathy ([facility]) Continue with lyrica OARRS reviewed Fu in 3 months Relevant Medications pregabalin (Lyrica) 300 MG capsule COPD (chronic obstructive pulmonary disease) ([facility]) - Primary Stable at this time, no changes in meds Encouraged smoking cessation Cont with dr Yañez Hypertension ([facility]) Stable on current meds Refill meds Relevant Medications hydrALAZINE (Apresoline) 25 MG tablet lisinopril 20 MG tablet Type 2 diabetes mellitus with complication, with long-term current use of insulin ([facility]) Check blood sugars daily, follow [...] carbohydrates, and simple sugars. Continue with dr souza for mgmt, and recommend diabetic eye exam [...] 500 MCG tablet documented in this encounter [facility] 11-14-2023 [facility] Subjective Mitzi Macias is a 53 y.o. year old female being seen as new patient to establish care. Ref from Mckayla Blas CNP for pulmonary hypertension. She had echo in Aug 2023 while inpatient at [facility] for pneumonia and COPD exacerbation. Denies [...] (BMI) of 50.0 to 59.9 in adult ([facility]) Non-seasonal allergic rhinitis Obstructive sleep apnea Other chronic pain PAD (peripheral artery disease) ([facility]) Pneumonia Encounter for screening mammogram for malignant neoplasm of breast Pulmonary hypertension ([facility]) Radiculopathy, lumbar region Current smoker Type 2 diabetes mellitus with complication, with long-term current use of insulin ([facility]) Unilateral primary osteoarthritis, right hip Vaginal yeast [...] was admitted in early 2023 to the [facility] with hypoxemia and treated as COPD exacerbation. [...] wheelchair Skin: Gene (more content not included)... [facility] 11-15-2022 Hospital Discharge instructions Patient Education [...] include: ?8 oz (237 mL) of milk, uopqaih-ikybqpputnzk-yqhrl milk, and calcium-fortifiedfruit juice. Calcium-fortified means that [...] ?Spinach (cooked), rhubarb, beets, sweet potatoes, and Thai chard. ?Peanuts. ?Potato chips, swedish fries, and baked potatoes with skin on. ?Nuts and nut products. ?Chocolate. If you regularly take a diuretic medicine, make sure to eat at least 1 or 2 servings of fruits or vegetables that are high in potassium each day. These include: ?Avocado. ?Banana. ?[place], prune, carrot, or tomato juice. ?Baked potato. [...] magnesium, fish oil, or vitamin B6. Take mryu-fzp-xsvhkhd and prescription medicines only as told by [...] Casseroles. Pizza. Lasagna. Frozen meals. Potato chips. Swedish fries. The items listed above may not [...] provider. Document Revised: 03/06/2022 Document Reviewed: 03/06/2022 [employer] Patient Education 2022 [employer]. Follow Up Care 02/06/2022 11:44:09 With:SILVIA HOWELL, SARAH Webb, URL Address: [address] [place] [address] When: Unknown [facility] 08-24-2022 Note CONSULTATION CONSULTATION DATE: 08/24/2022 HISTORY [...] We maintain her on pain medication with Orchard 5/325 t.i.d., diclofenac 75 mg b.i.d. Her [...] her at this point. A refill for Orchard 5/325 t.i.d. and diclofenac 75 mg b.i.d. will be sent to the pharmacy. Vitamin compliance and nutrition were discussed and enforced. I did highly encourage her to use exercise bands to increase the strength in her lower extremities. We will see her in three months' time, unless otherwise indicated, and patient agrees. [facility] 05-11-2022 Note CONSULTATION CONSULTATION DATE: 05/11/2022 This [...] 150. Medications include Lyrica 300 mg b.i.d., Orchard 5/325 t.i.d., diclofenac 75 mg b.i.d. and [...] her medications today. We will maintain Lyrica, Orchard and diclofenac at the set dose and frequency. We will follow-up in the clinic in three months' time. The patient is in agreement to this. Vitamin importance and nutrition were discussed. [facility] 04-20-2022 Note CONSULTATION CONSULTATION DATE: 04/20/2022 HISTORY [...] medications include Tylenol, Lyrica 300 mg b.i.d., Orchard 5/325 t.i.d., amitriptyline, diclofenac and duloxetine. Patient's [...] be followed up in the clinic. [facility] 03-08-2022 Evaluation note Encounter Date Diagnosis Assessment [...] to the DANIEL. Thrombocytopenia is unclear etiology. [employer] Other 08-15-2022 Evaluation note* Encounter Date Diagnosis [...] follow with Dr. Souza and Dr. Arauz. [employer] Other 08-01-2022 Hospital Discharge instructions Patient Education [...] fried and sweet foods. General instructions Take jeqh-cnp-ploacka and prescription medicines only as told by [...] 04/21/2010 Document Revised: 10/16/2019 Document Reviewed: 07/11/2018 [employer] Patient Education 2020 [employer] Follow Up Care 01/05/2022 12:02:03 With:REGLA PHIPPS, Elbert Joya, URL Address: [facility] [address], [place] [address] [phone] When:Within 6 Month(s) Comments:w/ repeat CT A/P [facility] 07-14-2022 NoteCONSULTATION PROCEDURE DATE: 01/19/2022 PRE AND [...] the patient tolerated it well. [facility] Signed and Approved by: GIL VALENZUELA . 01/27/2022 14:15:00[facility]07-14-2022 NoteCONSULTATION CONSULTATION DATE: 01/19/2022 This [...] today. Medications include Lyrica 300 mg b.i.d., Orchard 5/325 t.i.d., diclofenac 75 mg b.i.d. and [...] months' time unless otherwise indicated. [facility] Signed and Approved by: GIL VALENZUELA . 01/27/2022 14:15:00[facility] Future Appointments Appointment Date:08/14/2022 09:15:00 AM Scheduled Provider:Elbert ARAUZ MD Location:[facility] Appointment Type:URO Office Visit [facility] evaluation + Plan note Future Appointments Appointment Date:04/22/2024 10:00:00 AM Scheduled Provider:SARAH VEGA PA-C Location:[facility] Appointment Type:URO Office Visit [facility] evalejkerq note* Diagnosis Type 2 diabetes mellitus with unspecified complications ([facility]) Edema, unspecified [facility]ema [facility] Diagnosis Vaginal yeast infection- Primary Candidiasis of vulva and vagina [facility] Diagnosis Primary hypertension ([facility]/H[facility])- Primary Unspecified essential hypertension Insomnia Insomnia, unspecified Type 2 diabetes mellitus with complication, with long-term current use of insulin ([facility]) Non-seasonal allergic rhinitis, unspecified trigger Type 2 diabetes mellitus with unspecified complications (CMS/HCC) Anxiety and depression (CMS/HCC) Gastro-esophageal reflux disease without esophagitis Edema, unspecified Edema Diabetic polyneuropathy associated with type 2 diabetes mellitus ([facility]) Chronic obstructive pulmonary disease, unspecified [...] History sepsis 2010 Hospitalization History SEE ABOVE [employer] Other Hospital course Narrative No data available for this section [facility] progress note No data available for this section [facility] reason for referral (narrative) , Referral to Dr. 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 Expl anation Advance Directives and Living Will Power of Switch Box Installer Summary Purpose Family History No Family History Records FoundNo Family History Records FoundNo Family History Records FoundNo Family History Records FoundNo Family History Records FoundNo Family History Records Found Additional Source Comments INFORMATION SOURCE (unrecogn ized section and content) DATE CREATED AUTHOR 10/30/2019 [facility] DATE CREATED AUTHOR AUTHOR'S ORGANIZ ATION 09/15/2020 [facility] DATE CREATED AUTHOR AUTHOR'S ORGANIZ ATION 12/19/2022 [facility] DATE CREATED AUTHOR AUTHOR'S ORGANIZ ATION 11/16/2023 [facility] DATE CREATED AUTHOR AUTHOR'S ORGANIZ ATION 04/15/2024 [facility] EPIC DATE CREATED AUTHOR AUTHOR'S ORGANIZ ATION 05/06/2024 [facility] (unrecognized sect ion and content) 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 Relationship Specialty Start Date End Date Ty Amin MD PCP - General Family Medicine 01/05/23 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 Relationship Specialty Start Date End Date Ty Amin MD PCP - General [facility] 01/05/23 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 Relationship Specialty Start Date End Date Ty Amin MD [address] [place] [phone] PCP - General Family Medicine 09/20/23 Mckayla Blas NP [address] [place] [phone] PCP [facility] 09/07/23 09/05/90 Mckayla Blas NP [address] [place] [phone] Nurse Practitioner Family [facility] 09/20/23 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 Relationship Specialty Start Date End Date Ty Amin MD [address] [place] [phone] PCP - [facility] Family [facility] 09/20/23 Mckayla Blas NP [address] [place] [phone] PCP [facility] 09/07/23 09/05/90 Mckayla Blas NP [address] [place] [phone] Nurse Practitioner Family [facility] 09/20/23 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 [employer] provides no warranty or guarantee of the accuracy or completeness of information in this document.
--- NOTE | 2024-05-21 09:24 | P.CN_ITS ---
Consult Note: HPI Data of Consult Patient: known to practice within the last 3 years Requesting Physician: Angela Cochran NP Primary Care Provider: Mckayla Blas NP Consult Narrative Reason for consult: f/u Narrative: Mitzi Macias a pleasant 53 year old female presents for evaluation and management of low back and right hip pain. Today pain 7/10. Describes it as an aching pain in low back, sharp in right hip, and right leg pain increased with standing, walking, transitioning, stairs. Tolerating current medication regimen well without side effects. Patient has a longstanding hx of low back and leg pain unresponsive to PT/HEP greater than 6 weeks, tylenol, ibuprofen/motrin/aleve, heat/ice, and tylenol. Patient feels her lumbar RFA has worn off, however shes reporting increase in right leg pain/heaviness/weakness. Recently underwent a lumbar MRI with results below. cc:: CC: Angela Cochran NP Review of Systems ROS Status of ROS 10 or more systems reviewed and unremark able except as noted in history and below Musculoskeletal Reports: back pain, extremity pain and joint pain PFSH PFSH Medical History COPD exacerbation ?J44.1 - Chronic obstructive pulmonary disease with (acute) exacerbation (ICD-10) Influenza A ?J10.1 - Influenza due to other identified influenza virus with other respiratory manifestations (ICD-10) Hypoxia ?R09.02 - Hypoxemia (ICD-10) Hypertension ?I10 - Essential (primary) hypertension (ICD-10) Obesity ?E66.9 - Obesity, unspecified (ICD-10) Amputation toe ?S98.139A - Complete traumatic amputation of one unspecified lesser toe, initial encounter (ICD-10) Neuropathy ?G62.9 - Polyneuropathy, unspecified (ICD-10) Acid reflux ?K21.9 - Gastro-esophageal reflux disease without esophagitis (ICD-10) Diabetes ?E11.9 - Type 2 diabetes mellitus without complications (ICD-10) COPD (chronic obstructive pulmonary disease) ?J44.9 - Chronic obstructive pulmonary disease, unspecified (ICD-10) Asthma ?J45.909 - Unspecified asthma, uncomplicated (ICD-10) High cholesterol ?E78.00 - Pure hypercholesterolemia, unspecified (ICD-10) Surgical History History of hammertoe correction ?Z98.890 - Other specified postprocedural states (ICD-10) ?Z87.39 - Personal history of other diseases of the musculoskeletal system and connective tissue (ICD-10) Hx of cholecystectomy ?Z90.49 - Acquired absence of other specified parts of digestive tract (ICD- 10) History of hysterectomy ?Z90.710 - Acquired absence of both cervix and uterus (ICD-10) Social History Within the past year, how often did you have a drink containing alcohol: never Score interpretation: A score less than 3 is consistent with normal alcohol consumption. Smoking status: Former smoker Highest level of school completed/degree received: Associate degree: occupational, technical, vocational program Meds Home Medications and Allergies Home Medications ?Medication ?Instructions ?Recorded ?Confirmed ?Type acetaminophen 500 mg capsule 1,000 mg PO Q6H PRN fever or pain 03/20/23 11/27/23 History amitriptyline 25 mg tablet 25 mg PO DAILY 03/20/23 11/27/23 History aspirin 81 mg tablet,delayed 81 mg PO DAILY 03/20/23 11/27/23 History release (Adult Aspirin Regimen) budesonide-formoterol HFA 160 2 inh inhalation BID 03/20/23 11/27/23 History mcg-4.5 mcg/actuation aerosol inhaler (Symbicort) furosemide 40 mg tablet 40 mg PO DAILY 03/20/23 11/27/23 History insulin aspart U-100 100 unit/mL 1 sliding scale dose subcut 03/20/23 11/27/23 History (3 mL) subcutaneous pen (Novolog USEASDIRECTD FlexPen U-100 Insulin aspart) insulin glargine 100 unit/mL 58 unit subcut BID 03/20/23 11/27/23 History subcutaneous solution (Lantus U-100 Insulin) lisinopril 20 mg tablet 20 mg PO DAILY 03/20/23 11/27/23 History omeprazole 20 mg capsule,delayed 20 mg PO DAILY 03/20/23 11/27/23 History release pregabalin 300 mg capsule 300 mg PO Q12H 03/20/23 11/27/23 History duloxetine 60 mg capsule,delayed 60 mg PO BID #60 caps 04/05/23 11/27/23 Rx release hydrocodone 5 mg-acetaminophen 325 1 tab PO TID PRN pain #90 tabs 09/04/23 11/27/23 Rx mg tablet dapagliflozin propanediol 10 mg 10 mg PO .QD 09/10/23 11/27/23 History tablet ergocalciferol (vitamin D2) 1,250 50,000 unit PO QWEEK 09/10/23 11/27/23 History mcg (50,000 unit) capsule potassium chloride 10 mEq 10 meq PO .QD 09/10/23 11/27/23 History capsule,extended release simvastatin 10 mg tablet 10 mg PO QAM 09/10/23 11/27/23 History hydralazine 25 mg tablet 25 mg PO BID #60 tabs 09/13/23 11/27/23 Rx oseltamivir 75 mg capsule 75 mg PO BID #6 caps 09/13/23 11/27/23 Rx hydrocodone 5 mg-acetaminophen 325 1 tab PO TID PRN pain #90 tabs 11/08/23 11/27/23 Rx mg tablet hydrocodone 5 mg-acetaminophen 325 1 tab PO TID PRN pain #90 tabs 12/06/23 Rx mg tablet hydrocodone 5 mg-acetaminophen 325 1 tab PO TID PRN pain #90 tabs 01/09/24 Rx mg tablet hydrocodone 5 mg-acetaminophen 325 1 tab PO TID PRN pain #90 tabs 02/07/24 Rx mg tablet hydrocodone 5 mg-acetaminophen 325 1 tab PO TID PRN pain #90 tabs 03/06/24 Rx mg tablet hydrocodone 5 mg-acetaminophen 325 1 tab PO TID PRN pain #90 tabs 04/02/24 Rx mg tablet amoxicillin 875 mg-potassium 1 tab PO Q12H #20 tabs 04/04/24 Rx clavulanate 125 mg tablet hydrocodone 5 mg-acetaminophen 325 1 tab PO TID PRN pain #90 tabs 05/06/24 Rx mg tablet Allergies Allergy/AdvReac Type Severity Reaction Status Date / Time No Known Drug Allergies Allergy Verified 11/27/23 09:57 Exam Constitutional Documenting provider has reviewed patient's vital signs: yes Common normals: no apparent distress, oriented x3, healthy appearing, alert and well nourished General appearance: cooperative Nutritional appearance: obese HENMT Common normals: normocephalic, hearing grossly normal bilaterally and moist oral mucous membranes Head and scalp: normocephalic Eye Common normals: PERRL Pupil: PERRL Neck & C-Spine Common normals: full ROM General: normal visual inspection Chest Common normals: inspection of chest normal Respiratory Common normals: normal respiratory effort, no retractions and no use of accessory muscles Back & Pelvis Lumbar spine/lower back: ROM limited, pain with ROM and straight leg raise positive right; straight leg raise negative left Sacroiliac joints: SI joints normal Other: altered sensation to right L3/4/5 pattern strength 4/5 in RLE 5/5 in LLE increased pain with standing and walking, improved immediately with sitting and significant improvement with forward flexion Extremity Common normals: normal to inspection and full ROM Neuro Common normals: oriented x3, CN's II-XII intact bilaterally, moves all extremities, no focal motor deficits, no sensory deficits noted and deep tendon reflexes 2+ bilaterally Sensorium/orientation: alert Motor exam: no movement abnormalities noted and strength abnormal Psych Common normals: mental status grossly normal, thought process normal, cooperative, affect normal, speech normal and activity/motor behavior normal Speech: normal speech Thought process: normal thought process Results Imaging Lumbar MRI: Attestation: I have reviewed the pertinent imaging results. Radiologist's impression: 12-L1: No significant disc/facet abnormality, spinal stenosis, or foraminal stenosis. L1-L2: No significant disc/facet abnormality, spinal stenosis, or foraminal stenosis. L2-L3: No significant disc/facet abnormality, spinal stenosis, or foraminal stenosis. L3-L4: Moderate to severe disc space narrowing and disc desiccation with endplate sclerosis. Posterior subligamentous disc herniation extending posteriorly up to 3.1 mm with inferior migration 4.5 mm. Moderate to severe ligamentum flavum hypertrophy and facet osteoarthropathy. Moderate narrowing of the central canal. Moderate to severe right and mild left foraminal stenosis L4-L5: 5 mm anterolisthesis of L5 on S1 with resultant bulge/pseudobulge. Moderate ligamentum flavum hypertrophy and facet osteophytes arthropathy. Severe central canal stenosis. Moderate to severe right and no left foraminal stenosis L5-S1: Moderate to severe disc space narrowing. Large posterior disc herniation of the protrusion type extending up to 6.6 mm. Bilateral facet osteoarthropathy. Mild narrowing of the central canal . No right and moderate left foraminal stenosis Additional Findings Additional findings: If on a controlled substance or opioids, I have checked an OARRS report on this patient and there are no aberrancies noted in the prescribing history.??If on a controlled substance or opioid a drug screen was completed and reviewed within the last year, and if there has not been a drug screen completed we ordered one today to monitor higher risk, state monitored pain medication use. As part of providing excellent, safe, comprehensive care, the following was completed at our patient's visit: 1. A medication reconciliation and review to ensure accurate knowledge of current/active medications, including asking our patients to inform us about any xufl-zfb-glivykh medications or herbal remedies/nutritional supplements/alternative remedies. 2. A review to specifically ensure our patients have had annual screening for screening for depression, screening for tobacco use, and screening for unhealthy alcohol use. For concerning screenings had a discussion with the patient, provided patient education, and recommended follow-up with primary care provider when appropriate. If patient noted with a risk of falling, they received education on strength, gait, and balance training to prevent future risk of falling. Assessment and Plan Assessment and Plan (1) Lumbar stenosis with neurogenic claudication: (2) Lumbar degenerative disc disease: (3) Lumbar spondylosis: (4) Chronic prescription opiate use: (5) Osteoarthritis of hip: Qualifiers: Osteoarthritis type: unspecified Laterality: unspecified laterality Qualified Code(s): M16.9 - Osteoarthritis of hip, unspecified (6) Chronic right hip pain: Plan case reviewed with Dr Sharp, with severe stenosis at L4/5 we will proceed with L3/4 TAMMIE under fluoroscopy for lumbar stenosis with NC. risks vs benefits reviewed with pt continue f/u with urology, vascular, wound care, endocrinology. currently not on antibiotic therapy, pt to update us if that changes continue current medications, reports functional improvement with mild to moderate pain relief. denies side effects continue HEP as tolerated defer NS consult at this time per pt request, risks vs benefits reviewed. pt is high risk for surgical intervention due to comorbidities continue working towards smoking cessation and weight loss f/u 2 weeks after TAMMIE
== END 2024-05-21 08:39 | disposition home or self-care (01) ==
LOC: PM 08:38
PROVIDERS: PCP Nurse Practitioner; Visit Provider Nurse Practitioner
DX: M48.062 Spinal stenosis, lumbar region with neurogenic claudication (principal); M47.816 Spondylosis without myelopathy or radiculopathy, lumbar region; M51.369 Other intervertebral disc degeneration, lumbar region without mention of lumbar back pain or lower extremity pain; M16.9 Osteoarthritis of hip, unspecified; M25.551 Pain in right hip; G89.29 Other chronic pain; Z79.891 Long term (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 opiate analgesic
CPT/HCPCS: G0463

== ENCOUNTER 2024-05-21 14:59 | Outpatient (OUT) | payer MEDICARE, OTHER, SELFPAY | END 2024-05-21 15:00 | disposition home or self-care (01) | LOC: WC 14:59 | PROVIDERS: PCP Nurse Practitioner; Visit Provider Physician Assistant | DX: M48.062 Spinal stenosis, lumbar region with neurogenic claudication (principal); M47.816 Spondylosis without myelopathy or radiculopathy, lumbar region; M51.369 Other intervertebral disc degeneration, lumbar region without mention of lumbar back pain or lower extremity pain; M16.9 Osteoarthritis of hip, unspecified; M25.551 Pain in right hip; G89.29 Other chronic pain; Z79.891 Long term (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 opiate analgesic; I87.311 Chronic venous hypertension (idiopathic) with ulcer of right lower extremity; L97.812 Non-pressure chronic ulcer of other part of right lower leg with fat layer exposed | CPT/HCPCS: A6021; G0463 ==

== ENCOUNTER 2024-06-10 08:12 | Day surgery (SDC) | payer MEDICARE, OTHER, SELFPAY ==
[2024-06-10 08:25] VITALS: BP 145/82; PULSE 90; TEMP 36.8; O2SAT 94
[2024-06-10 08:26] LABS: Glucometer 135 mg/dL (74-106)
[2024-06-10 09:27] VITALS: BP 163/78; BP 169/84; PULSE 90; PULSE 92; O2SAT 91; O2SAT 92
[2024-06-10] MEDS: 0.9 % SODIUM CHLORIDE 10 ML SYRINGE - SALINE FLUSH 2 ML INJ (09:34)
[2024-06-10] MEDS: IOHEXOL 240 MG/ML - 10 ML VIAL 12 MG INJ (09:34)
[2024-06-10] MEDS: BUPIVACAINE HCL 0.25% PF 25 MG/10 ML VIAL 2 ML INJ (09:34)
[2024-06-10] MEDS: METHYLPREDNISOLONE ACETATE 80 MG/ML VIAL INJ (09:34)
[2024-06-10] MEDS: LIDOCAINE HCL 2% 400 MG/20 ML MDV 4 ML INJ (09:34)
--- NOTE | 2024-06-10 10:07 | P.ON_ITS ---
Date of procedure: 06/10/24 Pre-op diagnosis: Lumbar stenosis with neurogenic claudication Post-op diagnosis: same as pre-op Procedure: Lumbar 3/4 Epidural Steroid Injection Under fluoroscopic guidance Immediate complications none Solution used for injection: Marcaine 0.25% 2mL, 2cc Normal saline, Depo-Medrol 80mg Omnipaque 3 mL Anesthesia local 2% lidocaine up to 4ml Timeout process compliant After informed consent obtained. Patient brought to the procedure room placed in the prone position. Skin overlying the area was prepped and draped in a sterile fashion using betadine. 25 gauge needle used to raise a skin wheel with local anesthetic over the target area identified under fluoroscopy. A 17 gauge Touhy needle Was inserted over the anesthetized area and directed towards the inter- space under fluoroscopic guidance. Epidural space was identified with loss of resistance technique to air. Needle Tip placement confirmed with injection of contrast solution in AP and Lateral views. Steroid solution was then injected. Anesthesia: Local Surgeon: Temo Sharp Condition: stable
== END 2024-06-10 09:39 | disposition home or self-care (01) ==
LOC: SURGOUT 08:13
PROVIDERS: PCP Nurse Practitioner; Visit Provider Anesthesiology Pain Medicine
DX: M48.062 Spinal stenosis, lumbar region with neurogenic claudication (principal); E11.9 Type 2 diabetes mellitus without complications; Z79.4 Long term (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
CPT/HCPCS: 36415; 62323; 82948; J0665; J1010; Q9966

== ENCOUNTER 2024-06-24 13:03 | Outpatient (OUT) | payer MEDICARE, OTHER, SELFPAY ==
--- NOTE | 2024-06-24 | CONS_ITS ---
CONSULTATION DATE: 06/24/2024 TO: Mckayla Blas CNP HISTORY: Patient presents today complaining of 7-8/10 pain in her lower back occurring bilaterally, right hip area, right ankle area. She recently has [facility] open sores in her right ankle and foot area. Details of this are unavailable, and we did not examine this area, as it was recently bandaged and wrapped. Nevertheless, she rates the pain, overall, as being 7-8/10 pain, deep aching in character with a sharp component in her lower back, occurring bilaterally, more severe on the right side, with right leg pain. CURRENT MEDICATION: Includes Lyrica 300 mg b.i.d. and Saint Peter 5 mg t.i.d. She reports the Saint Peter is improving her pain symptoms. She denies any side effects with the same, and she did not demonstrate any signs of acceleration. Her NIKKY on today?s visit was 58%. EXAM: Notable for patient is having hypoesthesia along the right L4 dermatome, depressed right patellar reflex, weakness of her right anterior tibialis and quadriceps. There are no signs consistent with myelopathy involving the lower extremities. IMPRESSION: Our impression is patient appears to have right L4 radiculopathy from spinal stenosis. RECOMMENDATIONS: I will obtain urine toxicology screen on today?s visit. I have asked her to maintain the current dosage of Lyrica. I have asked her to reduce the [place] Peter as tolerated. I have asked her to make 80 pills last one month?s time. I have added baclofen to help assist with this, 10 mg pills, half a pill to one pill t.i.d. as tolerated. Will have the patient return to the office in < > , sooner if needed. As part of providing excellent, safe, comprehensive care, the following was completed at our patient's visit: 1. A medication reconciliation and review to ensure accurate knowledge of current/active medications, including asking our patients to inform us about any [id number] medications or herbal remedies/nutritional supplements/alternative remedies. 2. A review to specifically ensure our patients have had annual screening for: elevated body mass index (BMI, see intake chart for exact total), tobacco use, screening for depression, and screening for unhealthy alcohol use. When screening is concerning, patients are provided with education and the specific recommendation to discuss the concerning health issue and treatment options with their primary care provider. BUCK
== END 2024-06-24 13:04 ==
LOC: PM 13:04
PROVIDERS: PCP Nurse Practitioner; Visit Provider Anesthesiology Pain Medicine
DX: M48.062 Spinal stenosis, lumbar region with neurogenic claudication (principal); M54.16 Radiculopathy, lumbar region
CPT/HCPCS: G0463

== ENCOUNTER 2024-07-22 16:22 | Outpatient (OUT) | payer MEDICARE, OTHER, SELFPAY | END 2024-07-22 16:23 | disposition home or self-care (01) | LOC: WC 16:22 | PROVIDERS: PCP Nurse Practitioner; Visit Provider Physician Assistant | DX: I87.311 Chronic venous hypertension (idiopathic) with ulcer of right lower extremity (principal); L97.812 Non-pressure chronic ulcer of other part of right lower leg with fat layer exposed | CPT/HCPCS: G0463 ==

== ENCOUNTER 2024-08-13 10:04 | Outpatient (OUT) | payer MEDICARE, OTHER, SELFPAY ==
--- OUTSIDE RECORDS SUMMARY | 2024-08-13 10:12 | XMS_ITS | CCD ---
Author Organization [facility] Care Team Providers Care Chemistry Technical Officer Name Role Phone James Benavidez Primary Care Provider JAMES BENAVIDEZ Primary Care Unavailable SHENDGE, VITHAL Admitting Unavailable SHENDGE, VITHAL Attending Unavailable AICHHOLZ, MCKAYLA Primary Care Unavailable AICHHOLZ, MCKAYLA Referring Unavailable AICHHOLZ, MCKAYLA J Primary Care Physician [phone] Tico, Stephanie Unavailable OLE RAMIREZ Attending Unavailable OLE RAMIREZ Consulting Unavailable AICHHOLZ, FELT FINISHING SUPERVISOR MCKAYLA Primary Care Unavailable OLE RAMIREZ Admitting Unavailable ANTONY SHRESTHA Consulting Unavailable ALONDRA ., UMBERTO Admitting Unavailable ALONDRA ., UMBERTO Attending Unavailable AICHHOLZ, FELT FINISHING SUPERVISOR MCKAYLA Primary Care Unavailable AFSANEH Loera, DR BOLANOS Consulting Unavailable MARYANNE POWER Consulting Unavailable GLENN KERR Consulting Unavailable YOMAIRA KERR Consulting Unavailable HATTIE GOFF Consulting Unavailable ALONDRA ., UMBERTO Consulting Unavailable TICO, STEPHANIE Attending Unavailable TICO, STEPHANIE Consulting Unavailable AICHHOLZ, FELT FINISHING SUPERVISOR MCKAYLA Primary Care Unavailable TICO, STEPHANIE Admitting Unavailable REGLA ., DR DUMONT Admitting Unavailable AICHHOLZ, FELT FINISHING SUPERVISOR MCKAYLA Primary Care Unavailable REGLA ., DR DUMONT Attending Unavailable ARAUZ ., DR DUMONT Consulting Unavailable COLLIN HUERTAS Consulting Unavailable CECILIA KAUFMAN Admitting Unavailable CECILIA KAUFMAN Attending Unavailable AICHHOLZ, FELT FINISHING SUPERVISOR MCKAYLA Primary Care Unavailable RAFAEL GONGORA Attending Unavailable RAFAEL GONGORA Admitting Unavailable AICHHOLZ, FELT FINISHING SUPERVISOR MCKAYLA Primary Care Unavailable AICHHOLZ, FELT FINISHING SUPERVISOR MCKAYLA Admitting Unavailable AICHHOLZ, FELT FINISHING SUPERVISOR MCKAYLA Primary Care Unavailable AICHHOLZ, FELT FINISHING SUPERVISOR MCKAYLA Attending Unavailable AICHHOLZ, FELT FINISHING SUPERVISOR MCKAYLA Consulting Unavailable LAKSHMIPATHY ., NARENDRANATH Attending Anette vailable LAKSHMIPATHY ., NARENDRANATH Consulting Anette vailable LAKSHMIPATHY ., NARENDRANATH Admitting Anette vailable AICHHOLZ, FELT FINISHING SUPERVISOR MCKAYLA Primary Care Unavailable VALENZUELA ., GIL Consulting Unavailable MORTENSEN ., DR CHAPARRO Aguillon Attending Unavailable MORTENSEN ., DR CHAPARRO Aguillon Admitting Unavailable AICHHOLZ, FELT FINISHING SUPERVISOR MCKAYLA Primary Care Unavailable VALENZUELA ., GIL Consulting Unavailable MORTENSEN ., DR CHAPARRO Aguillon Admitting Unavailable AICHHOLZ, FELT FINISHING SUPERVISOR MCKAYLA Primary Care Unavailable MORTENSEN ., DR CHAPARRO Aguillon Attending Unavailable HALKER ., SUBHASH Consulting Unavailable LAKSHMIPATHY ., NARENDRANATH Admitting Anette vailable LAKSHMIPATHY ., NARENDRANATH Attending Anette vailable AICHHOLZ, FELT FINISHING SUPERVISOR MCKAYLA Primary Care Unavailable MORTENSEN ., DR CHAPARRO Aguillon Attending Unavailable MORTENSEN ., DR CHAPARRO Aguillon Admitting Unavailable VALENZUELA ., GIL Consulting Unavailable AICHHOLZ, FELT FINISHING SUPERVISOR MCKAYLA Primary Care Unavailable VALENZUELA ., GIL Consulting Unavailable MORTENSEN ., DR CHAPARRO Aguillon Attending Unavailable MORTENSEN ., DR CHAPARRO Aguillon Admitting Unavailable AICHHOLZ, FELT FINISHING SUPERVISOR MCKAYLA Primary Care Unavailable HATTIE BRODERICK Attending Unavailable HATTIE BRODERICK Admitting Unavailable AICHHOLZ, FELT FINISHING SUPERVISOR MCKAYLA Primary Care Unavailable AICHHOLZ, FELT FINISHING SUPERVISOR MCKAYLA Admitting Unavailable AICHHOLZ, FELT FINISHING SUPERVISOR MCKAYLA Consulting Unavailable AICHHOLZ, FELT FINISHING SUPERVISOR MCKAYLA Primary Care Unavailable AICHHOLZ, FELT FINISHING SUPERVISOR MCKAYLA Attending Unavailable AICHHOLZ, FELT FINISHING SUPERVISOR MCKAYLA Primary Care Unavailable MISC, DR LESLIE Admitting Unavailable MISC, DR LESLIE Attending Unavailable MISC, DR LESLIE Consulting Unavailable DIAB ., MARIANO Admitting Unavailable DIAB ., MARIANO Attending Unavailable DIAB ., MARIANO Consulting Unavailable AICHHOLZ, FELT FINISHING SUPERVISOR MCKAYLA Primary Care Unavailable RASTEGAR, RICCO Consulting Unavailable AICHHOLZ, FELT FINISHING SUPERVISOR MCKAYLA Admitting Unavailable AICHHOLZ, FELT FINISHING SUPERVISOR MCKAYLA Primary Care Unavailable AICHHOLZ, FELT FINISHING SUPERVISOR MCKAYLA Attending Unavailable AICHHOLZ, FELT FINISHING SUPERVISOR MCKAYLA Consulting Unavailable DR PATRICIA VELOZ Consulting Unavailable TAMLYN ., CECILIA Attending Unavailable TAMLYN ., CECILIA Admitting Unavailable DR PATRICIA VELOZ Consulting Unavailable AICHHOLZ, FELT FINISHING SUPERVISOR MCKAYLA Primary Care Unavailable TAMLYN ., CECILIA Consulting Unavailable MORTENSEN ., DR CHAPARRO Aguillon Attending Unavailable FESTUS ., DR CHAPARRO Aguillon Consulting Unavailable FESTUS ., DR CHAPARRO Aguillon Admitting Unavailable AICHHOLZ, FELT FINISHING SUPERVISOR MCKAYLA Primary Care Unavailable HATTIE BRODERICK Attending Unavailable HATTIE BRODERICK Consulting Unavailable HATTIE BRODERICK Admitting Unavailable AICHHOLZ, FELT FINISHING SUPERVISOR MCKAYLA Primary Care Unavailable HATTIE BAUTISTA Unavailable AICHHOLZ, FELT FINISHING SUPERVISOR MCKAYLA Admitting Unavailable AICHHOLZ, FELT FINISHING SUPERVISOR MCKAYLA Attending Unavailable AICHHOLZ, FELT FINISHING SUPERVISOR MCKAYLA Consulting Unavailable AICHHOLZ, FELT FINISHING SUPERVISOR MCKAYLA Primary Care Unavailable Brennan PHIPPS, Ty Primary Care Provider Brennan PHIPPS, Ty Primary Care Provider Aichholz AIRCRAFT DE ICER INSTALLER, Mckayla Unavailable Aichholz AIRCRAFT DE ICER INSTALLER, Mckayla Unavailable Elbert ARAUZ Attending Unavailable SARAH VEGA Attending Unavailable Aichholz HUSSEIN-SAYDA, Mckayla Rice Primary Care Provider AICCayetanoHOLZ, MCKAYLA Attending Unavailable AICHHOLZ, MCKAYLA Attending Unavailable AICHHOLZ, MCKAYLA Attending Unavailable AICHHOLZ, MCKAYLA Attending Unavailable AICHJODIE, MCKAYLA Attending Unavailable RAIN SOUZA Attending Unavailable RAIN SOUZA Referring Unavailable AICCayetanoHOLJuanis, MCKAYLA Attending Unavailable DAKOTAH BRIDGES Attending Unavailable BHARAT AGUILAR Attending Unavailable Allergies Allergy Classification Reported Allergen(s) Allergy Type Date of Onset Reaction(s) Facility (1 source) No Known Medication Allergies; Translations: [No Known Medication Allergies] Propensity to adverse reactions (disorder) [facility] Repository Medications Current Medications Medication Drug Class(es) Dates Sig (Normalized) Sig (Original) 0.5 ML tirzepatide 30 MG/ML Auto-Injector [Mounjaro] (1 source) Start: 06-11-2024 inject 15 mg by subcutaneous injection every week Mounjaro 15 mg/0.5 mL subcutaneous solution INJECT 15MG SUBCUTANEOUSLY ONCE A WEEK Start Date: 06/11/24 Status: Ordered acetaminophen 325 mg / HYDROcodone bitartrate 5 mg oral tablet (20 sources) Opioid Agonist Start: 02-06-2022 acetaminophen-hydroc odone 325 mg-5 mg oral tablet Refill(s) 0 Start Date: 02/06/22 Status: Ordered HYDROcodone-acet aminophen ([place]) 5-325 MG tablet 1 tablet 3 (three) times a day as needed for severe pain. Active HYDROcodone-acet aminophen (NORCO) 5-325 mg per tablet 2 (two) times a day. Active take 1 tablet by vandana th twice daily as needed [place] 5-325 MG 1 tablet as needed Orally TWICE A DAY Active albuterol 0.83 mg/ml inhalation solution (20 sources) beta2-Adrenergic Agonist Start: 02-06-2022 albut gilbert [...] (four) hours if needed for wheezing. Active albuterol (PROVE NTIL,VENTOLIN) 2.5 mg /3 mL (0.083 %) nebulizer solution albuterol sulfate 2.5 mg/3 mL (0.083 %) solution for nebulization Active albuterol (PROVE NTIL HFA;VENTOLIN HFA) 90 mcg/actuation inhaler as needed. Active Albuterol Sulfat e (2.5 MG/3ML) 0.083% 3 mL as needed Inhalation every 6 hrs Active albuterol 0.833 mg/ml / ipratropium bromide 0.167 mg/ml inhalation solution (15 sources) Anticholinergic, beta2-Adrenergic Agonist ipratropium-alb uterol (Duo-Neb) 0.5-2.5 mg/3 mL nebulizer solution Daily as needed Active ipratropium-albu teroL (DUO-NEB) 0.5 mg-3 mg(2.5 mg base)/3 mL nebulizer as needed. Active amitriptyline hydrochloride 25 mg oral tablet (20 sources) Tricyclic Antidepressant Start: 02-06-2022 End: 07-13-2024 take 1 tablet by mouth at bedtime amitriptyline (Elavil) 25 MG tablet Indications: Insomnia Take 1 tablet (25 mg) by mouth at bedtime 90 tablet 1 04/14/2024 Active Start: 03-16-2020 take 1 tablet by vandana th once daily amitriptyline (ELAVIL) 50 mg tablet Take 1 tablet (50 mg total) by mouth nightly. 03/16/2020 Active aspirin 81 mg chewable tablet (17 sources) Platelet Aggregation Inhibitor, Nonsteroidal Anti-inflammatory Drug Start: 11-01-2023 End: 10-12-2024 aspirin 81 MG chewable tablet Indications: Type 2 diabetes mellitus with complication, with long-term current use of insulin ([facility]) Chew 1 tablet (81 mg) Daily 90 tablet 1 07/14/2024 10/12/2024 Active aspirin 81 MG ch ewable tablet Chew 81 mg in the morning. 0 Active baclofen 10 mg oral tablet (5 sources) gamma-Aminobutyric Acid-ergic Agonist Start: 06-24-2024 take 1 tablet by mouth in the morning, then take 1 tablet by mouth in the evening, then take 1 tablet by mouth at bedtime baclofen (Lioresal) 10 MG tablet Take 10 mg by mouth in the morning and 10 mg in the evening and 10 mg before bedtime. 06/24/2024 Active Start: 03-16-2020 take 1 tablet by vandana th once daily baclofen (LIORESAL) 10 mg tablet Take 10 mg by mouth nightly. 03/16/2020 Active Budesonide / formoterol (6 sources) Corticosteroid, beta2-Adrenergic Agonist take 2 puff(s) by inhalation in the morning budesonide-formoteroL (SYMBICORT) 160-4.5 mcg/actuation inhaler Inhale 2 puffs in the morning and 2 puffs before bedtime. Active take 2 puff(s) by in halation twice daily budesonide-formoteroL (SYMBICORT) 160-4. 5 mcg/actuation inhaler Inhale 2 puffs 2 (two) times a day. Active take 2 puff(s) by in halation in the morning budesonide-formoterol (Symbicort) 160-4. 5 MCG/ACT inhaler Inhale 2 puffs in the morning and 2 puffs before bedtime. Rinse mouth with water after use to reduce aftertaste and incidence of candidiasis. Do not swallow.. 0 Active take 2 puff(s) by in halation twice daily Symbicort 160-4.5 MCG/ACT 2 puffs Inhala tion Twice a day Active cetirizine hydrochloride 10 mg oral tablet (17 sources) Histamine-1 Receptor Antagonist Start: 11-01-2023 End: 10-12-2024 take 1 tablet by mouth once daily cetirizine (ZyrTEC) 10 MG tablet Indications: Non-seasonal allergic rhinitis, unspecified trigger Take 1 tablet (10 mg) by mouth Daily 90 tablet 1 07/14/2024 10/12/2024 Active take 1 tablet by mouth in the mo rning cetirizine (ZyrTEC) 10 MG tablet Take 10 mg by mouth in the morning. 0 Active dapagliflozin 10 mg oral tablet (18 sources) Sodium-Glucose Cotransporter 2 Inhibitor Start: 01-17-2024 End: 07-13-2024 take 1 tablet by mouth once daily dapagliflozin (Farxiga) 10 MG Indications: Type 2 diabetes mellitus with unspecified complications (CMS/HCC) Take 1 tablet (10 mg) by mouth Daily 90 tablet 1 04/14/2024 Active Start: 08-14-2023 End: 11-12-2023 take 1 tablet by mouth in the morning dapagliflozin (Farxiga) 10 MG Indications: Type 2 diabetes mellitus with unspecified complications (CMS/HCC) Take 1 tablet (10 mg) by mouth in the morning. 90 tablet 1 08/14/2023 11/12/2023 Active diclofenac sodium 75 mg delayed release oral tablet (20 sources) Nonsteroidal Anti-inflammatory Drug Start: 02-06-2022 diclofenac sodium 75 mg Oral EC Tab Refills(s) 0 Start Date: 02/06/22 Status: Ordered 0.5 ML dulaglutide 9 MG/ML Auto-Injector [Trulicity] (6 sources) GLP-1 Receptor Agonist Start: 02-06-2022 Trulici ty Pen 4.5 mg/0.5 mL subcutaneous solution Refills(s) 0 Start Date: 02/06/22 Status: Ordered Start: 04-12-2020 TRULICITY 1.5 mg/0.5 mL pen injector inject one pen weekly 04/12/2020 Active Trulicity 4.5 MG /0.5ML as directed Subcutaneous ONCE A WEEK Active dulaglutide (Trulicity) 4.5 MG/0.5ML solution pen-injector (2 sources) inject 4.5 mg by subcutaneous injection every week dulaglutide (Trulicity) 4.5 MG/0.5ML solution pen-injector Inject 4.5 mg under the skin 1 (one) time per week. 0 Active DULoxetine 60 mg delayed release oral capsule (20 sources) Serotonin and Norepinephrine Reuptake Inhibitor Start: DULoxetine 30 mg Cap-EC Refills(s) 0 Start Date: 02/06/22 Status: Ordered Start: 03-16-2020 End: 07-13-2024 take 1 capsule by mouth in the morning DULoxetine (Cymbalta) [address] capsule Indications: Anxiety and depression (CMS/HCC) Take 1 capsule (60 mg) by mouth in the morning and 1 capsule (60 mg) before bedtime. Do not crush or chew.. 180 capsule 1 04/14/2024 Active DULoxetine 30 mg Cap-EC (2 sources) Start: 02-06-2022 DULoxetine 30 mg Cap-EC Refills(s) 0 Start Date: 02/06/22 Status: Ordered ergocalciferol 1.25 mg oral capsule (16 sources) Provitamin D2 Compound Start: 04-06-2024 End: 04-06-2024 take 1 capsule by mouth every week ergocalciferol (Vitamin D2) 1.25 MG (14768 UT) capsule Indications: Vitamin D deficiency, unspecified TAKE 1 CAPSULE BY MOUTH ONE TIME PER WEEK 12 capsule 1 04/06/2024 Active fluconazole 150 mg oral tablet (3 [...] Discontinued (Reorder) furosemide 20 mg oral tablet (20 sources) Loop Diuretic Start: 07-07-2024 End: 10-05-2024 take 1 tablet by mouth once daily as needed for edema furosemide (Lasix) 20 MG tablet Indications: Bilateral lower extremity edema Take 1 tablet (20 mg) by mouth Daily as needed (edema) Take in the afternoon as needed 90 tablet 1 07/07/2024 10/05/2024 Active Start: 02-06-2022 End: 05-08-2024 take 1 tablet by mouth once daily as needed for edema furosemide (Lasix) 20 MG tablet Indications: Bilateral lower extremity edema Take 1 tablet (20 mg) by mouth Daily as needed (edema) Take in the afternoon as needed 90 tablet 1 02/08/2024 05/08/2024 Active Start: 03-16-2020 End: 07-05-2024 take 1 tablet by mouth once daily furosemide (Lasix) 40 MG tablet Indications: Bilateral lower extremity edema Take 1 tablet (40 mg) by mouth Daily 90 tablet 1 04/06/2024 Active furosemide (Lasi x) 20 MG tablet Take 60 mg by mouth in the morning and 60 mg before bedtime. 40 mg in the morning and 20 mg in the afternoon. 0 Active hydrALAZINE hydrochloride 25 mg oral tablet (15 sources) Arteriolar Vasodilator Start: 09-13-2023 End: 07-13-2024 take 1 tablet by mouth in the morning hydrALAZINE (Apresoline) 25 MG tablet Indications: Primary hypertension (CMS/HCC) Take 1 tablet (25 mg) by mouth in the morning and 1 tablet (25 mg) before bedtime. 180 tablet 1 04/14/2024 Active insulin aspart protamine, human 70 unt/ml / insulin aspart, human 30 unt/ml injectable suspension (2 sources) Insulin Analog insulin aspart protamine-insulin aspart (NovoLOG Mix 70-30) (70-30) 100 UNIT/ML injection Inject under the skin 3 (three) times a day. 8 units with breakfast, 10 units with lunch and 12 units with supper. 0 Active NovoLog (7 sources) Insulin Analog Start: 02-06-2022 NovoLog SubCutaneous, TIDAC, Refills(s) 0 Start Date: 02/06/22 Status: Ordered insulin aspart U -100 (NovoLOG) 100 unit/mL (3 mL) insulin pen Novolog Flexpen U-100 Insulin aspart 100 unit/mL (3 mL) subcutaneous Active NovoLOG 100 UNIT /ML as directed Injection SLIDING SCALE BEFORE EACH MEAL Active 3 ml insulin glargine 100 unt/ml pen injector (20 sources) Insulin Analog Start: 10-30-2023 End: 04-14-2024 [...] morning and 58 Units before bedtime. Active inject 55 [IU] by doan bcutaneous injection in the morning insulin glargine (LANTUS, BASAGLAR) 100 unit/mL (3 mL) insulin pen Inject 55 Units under the skin in the morning and 55 Units before bedtime. Active inject 55 [IU] by doan bcutaneous injection twice daily insulin glargine (LANTUS, BASAGLAR) 100 unit/mL (3 mL) insulin pen Inject 55 Units under the skin 2 (two) times a day. Active Lantus SoloStar 100 UNIT/ML as directed Subcutaneous 58 UNITS ONCE A DAY Active 3 ml insulin lispro 100 unt/ml pen injector (15 sources) Insulin Analog Start: 10-06-2023 End: 04-14-2024 HumaLOG KWIKPEN 100 UNIT/ML injection Inject under the skin 10/06/2023 04/14/2024 Discontinued (Therapy completed) inject 1 [IU] by sub cutaneous injection three times daily before mealtime Insulin Lispro (HUMALOG KWIKPEN SC) Inject under the skin 3 (three) times a day before meals 8-10-12 units before meals and sliding scale Active lisinopril 20 mg oral tablet (20 sources) Angiotensin Converting Enzyme Inhibitor Start: 02-06-2022 End: 07-13-2024 take 1 tablet by mouth once daily lisinopril 20 MG tablet Indications: Primary hypertension (CMS/HCC) Take 1 tablet (20 mg) by mouth Daily 90 tablet 1 04/14/2024 Active lisinopriL (PRIN IVIL,ZESTRIL) 10 mg tablet daily. Active meloxicam (7 sources) Nonsteroidal Anti-inflammatory Drug Start: 02-06-2022 meloxicam Daily, Refills(s) 0 Start Date: 02/06/22 Status: Ordered meloxicam (MOBIC ) 15 mg tablet daily. Active take 1 tablet by vandana th every twenty-four hours Meloxicam 7.5 MG 1 tablet Orally Once a day Active metFORMIN hydrochloride 1000 mg oral tablet (1 source) Biguanide take 1 tablet by mouth twice daily at mealtime metFORMIN (GLUCOPHAGE) 1000 MG tablet Take 1,000 mg by mouth 2 times daily (with meals). 0 Active Mounjaro 10 MG/0.5ML solution pen-injector (4 sources) Start: End: inject 10 mg by subcutaneous injection every week Mounjaro 10 MG/0.5ML solution pen-injector INJECT 10MG SUBCUTANEOUSLY ONCE A WEEK 10/22/2023 04/14/2024 Discontinued (Therapy completed) Start: 10-22-2023 inject 10 mg by subc utaneous injection every week Mounjaro 10 MG/0.5ML solution pen-injector INJECT 10MG SUBCUTANEOUSLY ONCE A WEEK 10/22/2023 Active Mounjaro 15 MG/0.5ML solution auto-injector (8 sources) Start: 02-18-2024 Mounjaro 15 MG/0.5ML solution auto-injector Inject 15 mg as directed every 7 (seven) days 02/18/2024 Active naloxone hydrochloride 40 mg/ml nasal spray (3 sources) Opioid Antagonist Start: 07-04-2024 naloxone (Narcan) 4 mg/0.1 mL nasal spray Administer 4 mg into affected nostril(s) if needed 07/04/2024 Active 24 hr nicotine 0.875 mg/hr transdermal system (3 sources) Cholinergic Nicotinic Agonist Start: 07-14-2024 End: 08-13-2024 nicotine (Nicoderm, Step 1) 21 MG/24HR patch Indications: Encounter for smoking cessation counseling Place 1 patch over 24 hours on the skin 1 (one) time each day at the same time May either leave patch on 24 hours, or apply in the morning and take of at bedtime, rotate sites 30 patch 1 07/14/2024 08/13/2024 Active nortriptyline 50 mg oral capsule (13 sources) Tricyclic Antidepressant take 1 capsule by mouth once daily nortriptyline (Pamelor) 50 MG capsule Take 1 capsule by mouth Daily Active omeprazole 20 mg delayed release oral capsule (17 sources) Proton Pump Inhibitor Start: 12-25-2023 End: 07-13-2024 take 1 capsule by mouth before mealtime omeprazole (PriLOSEC) [address] capsule Indications: Gastro-esophageal reflux disease without esophagitis Take 1 capsule (20 mg) by mouth in the morning. Take before meals. 90 capsule 1 04/14/2024 Active ondansetron 4 mg oral tablet (2 sources) Serotonin-3 Receptor Antagonist ondansetron (ZOFRAN) 4 mg tablet as needed. Active Oxygen (13 sources) oxygen (O2) gas Inhale 2 L/min continuously via nasal canula Active potassium chloride 10 meq extended release oral capsule (20 sources) Start: 03-16-2020 End: 07-13-2024 take 1 capsule by mouth once daily in the morning potassium chloride ER (Micro-K) 10 MEQ ER capsule Indications: Edema, unspecified , Edema Take 1 capsule (10 mEq) by mouth Daily Take 1 capsule (10 mEq) by mouth in the morning. 90 capsule 1 04/14/2024 Active take 1 tablet by vandana th every twenty-four hours Potassium Chloride ER 10 MEQ 1 tablet with food Orally Once a day Active pregabalin 300 mg oral capsu le (20 sources) Start: 02-06-2022 Lyrica Oral, R efills(s) 0 Start Date: 02/06/22 Status: Ordered Start: 02-06-2022 End: 05-14-2024 take 1 capsule by mouth in the morning pregabalin (Lyrica) 300 MG capsule Indications: Diabetic polyneuropathy associated with type 2 diabetes mellitus (CMS/HCC) Take 1 capsule (300 mg) by mouth in the morning and 1 capsule (300 mg) before bedtime. 60 capsule 5 04/14/2024 Active vit 10-iron fum-folic 65-1 mg tablet (2 sources) Start: 04-28-2020 take 1 tablet by mouth once daily vit 10-iron fum-folic 65-1 mg tablet Indications: Morbid obesity (CMS-HCC) , Healthcare maintenance Take 1 tablet by mouth daily. 90 tablet 3 04/28/2020 Active roflumilast 0.5 mg oral tablet (13 sources) Phosphodiesterase 4 Inhibitor Start: 01-04-2024 End: 07-13-2024 take 1 tablet by mouth once daily Roflumilast 500 MCG tablet Indications: Chronic obstructive pulmonary disease, unspecified (CMS/HCC) Take 1 tablet by mouth Daily 90 tablet 1 04/14/2024 Active simvastatin 10 mg oral tablet (16 sources) HMG-CoA Reductase Inhibitor Start: 04-29-2020 End: 07-05-2024 take 1 tablet by mouth at bedtime simvastatin (Zocor) 10 MG tablet Indications: Hyperlipidemia, unspecified (CMS/HCC) Take 1 tablet (10 mg) by mouth at bedtime 90 tablet 1 04/06/2024 Active Symbicort 160/4.5 inhalation aerosol with adapter (3 sources) Start: 02-06-2022 Symbicort 160/4.5 inhalation aerosol with adapter Refill(s) 0 Start Date: 02/06/22 Status: Ordered 60 actuat tiotropium 0.0025 mg/actuat inhalation spray (7 sources) Anticholinergic Start: 02-06-2022 Spiriva Respimat 60 ACT 2.5 mcg/inh inhalation aerosol Refills(s) 0 Start Date: 02/06/22 Status: Ordered take 2 puff(s) by in halation in the morning tiotropium (Spiriva Respimat) 2.5 MCG/AC T inhaler Inhale 2 puffs in the morning. 0 Active take 2 puff(s) by inhalation twi ce daily Spiriva Respimat 2.5 MCG/ACT 2 puffs Inhalation TWICE A DAY Active Tirzepatide (Mounjaro) 15 MG/0.5ML solution auto-injector (3 sources) Start: 07-07-2024 inject 15 mg by subcutaneous injection every week Tirzepatide (Mounjaro) 15 MG/0.5ML solution auto-injector Indications: Type 2 diabetes mellitus with other circulatory complications (CMS/HCC) INJECT 15MG SUBCUTANEOUSLY ONCE A WEEK 6 mL 1 07/07/2024 Active triamcinolone acetonide 1 mg/ml topical cream (2 sources) Corticosteroid triamcinolone (Kenalog) 0.1 % cream Apply 1 application topically in the morning and 1 application before bedtime. 0 Active Completed/Discontinued Medications Medication Drug Class(es) Dates Sig (Normalized) Sig (Original) Glucose Blood (ACCU-CHEK JAQUI PLUS ) (14 sources) End: 07-14-2024 Glucose Blood (ACCU-CHEK JAQUI PLUS ) 4 (four) times a day. 07/14/2024 Discontinued (Therapy completed) Glucose Blood (A CCU-CHEK JAQUI PLUS ) 4 (four) times a day. Active Glucose Blood (A CCU-CHEK JAQUI PLUS ) 4 (four) times a day. 0 Active 3 ml liraglutide 6 mg/ml pen injector (6 sources) GLP-1 Receptor Agonist End: 07-14-2024 liraglutide (Victoza) 18 MG/3ML injection Inject under the skin Daily 07/14/2024 Discontinued (Therapy completed) ubrogepant 100 mg oral tablet (12 sources) End: 07-14-2024 take 1 tablet by mouth every twenty-four hours as needed Ubrogepant (Ubrelvy) 100 MG tablet Take 100 mg by mouth Daily as needed 07/14/2024 Discontinued (Therapy completed) varenicline (12 sources) Partial Cholinergic Nicotinic Agonist Start: 12-05-2023 End: 07-14-2024 Varenicline Tartrate, Starter, 0.5 MG X 11 & 1 MG X 42 tablet therapy pack TAKED DIRECTED BY MOUTH TWICE DAILY 12/05/2023 07/14/2024 Discontinued (Therapy completed) Start: 12-05-2023 Varenicline Ta rtrate, Starter, 0.5 MG X 11 & 1 MG X 42 tablet therapy pack TAKED DIRECTED BY MOUTH TWICE DAILY 12/05/2023 Active Problems Active Problems Problem Classification Problem Date Documented Da te Episodic/Chronic Abdominal pain (6 sources) Left flank pain; Translations: [Lower abdominal pain, unspecified] Onset: 10-05-2022 02-06-2022 Episodic Acquired foot deformities (1 source) Other hammer toe(s) (acquired), right foot; Translations: [OTHER HAMMER TOES ACQUIRED RT FOOT] Onset: 09-01-2022 Chronic Acquired foot deformities (1 source) Other hammer toe(s) (acquired), left foot; Translations: [OTHER HAMMER TOES ACQUIRED LT FOOT] Onset: 09-01-2022 Chronic Administrative/social admission (20 sources) Patient encounter status; Translations: [Dietary counseling and surveillance] Onset: 11-01-2023 11-01-2023 Episodic Anxiety disorders (17 sources) Mixed anxiety and depressive disorder; Translations: [Anxiety disorder, unspecified] Onset: 07-10-2023 07-10-2023 Chronic Asthma (18 sources) Asthma; Translations: [Unspecified asthma, uncomplicated] Onset: 07-10-2023 02-06-2022 Chronic Cancer of cervix (13 sources) Malignant tumor of cervix; Translations: [Malignant neoplasm of cervix uteri, unspecified] Onset: 09-17-2023 09-17-2023 Chronic Chronic kidney disease (5 sources) [...] Translations: [Chronic diastolic (congestive) heart failure] Onset: 08-08-2024 Chronic Diabetes mellitus with complications (20 sources) Disorder of kidney due to diabetes mellitus; Translations: [Type 2 diabetes mellitus with diabetic chronic kidney disease] Onset: 02-20-2022 Resolved: 03-08-2022 Chronic Diabetes mellitus without complication (9 sources) Type 2 diabetes mellitus; Translations: [Type 2 diabetes mellitus without complications] Onset: 04-27-2022 02-06-2022 Chronic Disorders of lipid metabolism (20 sources) Pure hypercholesterolemia, unspecified; Translations: [Hyperlipidemia, unspecified] Onset: 04-06-2022 09-17-2023 Chronic Esophageal disorders (18 sources) Gastro-esophageal reflux disease without esophagitis; Translations: [Gastroesophageal reflux disease] Onset: 12-05-2022 09-17-2023 Chronic Essential hypertension (20 sources) Hypertensive disorder; Translations: [Essential (primary) hypertension] Onset: 11-23-2022 02-06-2022 Chronic Genitourinary symptoms and ill-defined conditions (18 sources) Mixed incontinence; Translations: [Incontinence] Onset: 02-06-2022 Chronic Gout and other crystal arthropathies (13 sources) Gout; Translations: [Gout, unspecified] Onset: 10-25-2017 09-17-2023 Chronic Hypertension with complications and secondary hypertension (5 sources) Chronic kidney disease due to hypertension; Translations: [Hypertensive chronic kidney disease with stage 1 through stage 4 chronic kidney disease, or unspecified chronic kidney disease] Onset: 02-20-2022 Resolved: 03-08-2022 Chronic Mood disorders (1 source) Major depressive disorder, single episode, unspecified; Translations: [ANASTACIO DEPRESS D/O SINGLE EPIS UNS] Onset: 12-27-2021 Chronic Noninfectious gastroenteritis (1 source) Noninfective gastroenteritis and colitis, unspecified; Translations: [NONINFECTIVE GE AND COLITIS UNS] Onset: 10-09-2022 Episodic Nutritional deficiencies (3 sources) Vitamin D deficiency; Translations: [Vitamin D deficiency, unspecified] 05-27-2024 Chronic Osteoarthritis (20 sources) Arthritis; Translations: [Unspecified osteoarthritis, unspecified site] Onset: 04-20-2022 02-06-2022 Chronic Other aftercare (1 source) 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; Translations: [OTH CUSTODIAL CURRENT DRUG THERAPY] Onset: 12-05-2022 Episodic Other aftercare (1 source) jail (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; Translations: [CUSTODIAL CURRENT USE OF ASPIRIN] Onset: 12-05-2022 Episodic Other aftercare (3 sources) keno terminal operator (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; Translations: [METAL AND PLASTIC HEATER CURRENT USE OF INSULIN] Onset: 12-05-2022 Episodic Other aftercare (2 sources) Long-term current use of insulin; Translations: [keno terminal operator (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] 05-27-2024 Episodic Other and ill-defined heart disease (14 sources) Cardiomegaly; Translations: [Cardiomegaly] Onset: 10-25-2017 09-17-2023 Chronic Other and ill-defined heart disease (1 source) Cardiomegaly; Translations: [Cardiomegaly] Onset: 11-14-2023 Chronic Other and unspecified benign neoplasm (1 source) Benign lipomatous tumor; Translations: [Benign lipomatous neoplasm of other sites] Onset: 06-11-2024 Episodic Other and unspecified benign neoplasm (4 sources) Myelolipoma of adrenal gland; Translations: [Benign lipomatous neoplasm of other sites] Onset: 07-14-2024 06-11-2024 Episodic Other bone disease and musculoskeletal deformities [...] NOT ELSEWHERE CLASSIFIED] Onset: 09-01-2022 Chronic Other diseases of veins and lymphatics (2 sources) Venous insufficiency (chronic) (peripheral); Translations: [Venous insufficiency (chronic) (peripheral)] Onset: 11-14-2023 Episodic Other endocrine disorders (2 sources) Disorder of adrenal gland; Translations: [Other specified disorders of adrenal gland] Onset: 02-06-2022 Chronic Other endocrine disorders (17 sources) Adrenal mass; Translations: [Disorder of adrenal gland, unspecified] Onset: 09-17-2023 09-17-2023 Chronic Other endocrine disorders (2 sources) Disorder of adrenal gland, unspecified Onset: 02-20-2022 Resolved: 03-08-2022 Chronic Other endocrine disorders (5 sources) Other specified disorders of adrenal gland; Translations: [OTHER SPEC DISORDERS ADRENAL GLAND] Onset: 07-27-2022 Chronic Other gastrointestinal disorders (3 sources) Adrenal mass 02-06-2022 Episodic Other lower respiratory disease (1 source) Hypoxemia; Translations: [HYPOXEMIA] Onset: 12-05-2022 Episodic Other nervous system disorders (5 sources) Chronic pain syndrome; Translations: [CHRONIC PAIN SYNDROME] Onset: 01-23-2022 Chronic Other nervous system disorders (1 source) Other chronic pain; Translations: [OTHER CHRONIC PAIN] Onset: 04-24-2022 Chronic Other nervous system disorders (2 sources) Chronic pain; Translations: [Other chronic pain] Onset: 09-16-2020 09-16-2020 Chronic Other non-traumatic joint disorders (4 sources) Pain in right hip; Translations: [PAIN IN RIGHT HIP] Onset: 04-27-2022 Episodic Other nutritional; endocrine; and metabolic disorders (2 sources) Localized adiposity; Translations: [Localized adiposity] Chronic Other nutritional; endocrine; and metabolic disorders (5 sources) Body mass index 40+ - severely obese; Translations: [Body mass index (BMI) 50.0-59.9, adult] Onset: 05-21-2020 05-21-2020 Chronic Other nutritional; endocrine; and metabolic disorders (3 sources) Body mass index (BMI) 50.0-59.9, adult; Translations: [BODY MASS INDEX BMI 50.0-59.9 ADULT] Onset: 12-05-2022 Chronic Other nutritional; endocrine; and metabolic disorders (3 sources) Morbid (severe) obesity due to excess calories; Translations: [MORBID SEVERE OBES D/T EXCESS NHI] Onset: 12-05-2022 Chronic Other nutritional; endocrine; and metabolic disorders (1 source) Obesity, unspecified; Translations: [OBESITY UNSPECIFIED] Onset: 04-24-2022 Chronic Other nutritional; endocrine; and metabolic disorders (13 sources) Excess panniculus of abdomen; Translations: [Localized adiposity] Onset: 10-25-2017 09-17-2023 Chronic Other nutritional; endocrine; and metabolic disorders (3 sources) Morbid obesity; Translations: [Morbid (severe) obesity due to excess calories] Onset: 05-28-2020 05-28-2020 Chronic Other screening for suspected conditions (not mental disorders or infectious disease) (1 source) Encounter for screening mammogram for malignant neoplasm of breast; Translations: [ENC SCR MAMMO MALIG NEOPLASM BREAST] Onset: 11-25-2022 Episodic Other upper respiratory disease (17 sources) Allergic rhinitis; Translations: [Other allergic rhinitis] Onset: 11-01-2023 11-01-2023 Chronic Peripheral and visceral atherosclerosis (20 sources) Peripheral vascular disease, unspecified; Translations: [Peripheral vascular disease, unspecified] Onset: 09-01-2022 09-17-2023 Chronic Pulmonary heart disease (13 sources) Pulmonary hypertension; Translations: [Pulmonary hypertension, unspecified] Onset: 09-17-2023 09-17-2023 Chronic Residual codes; unclassified (3 sources) Obstructive sleep apnea (adult) (pediatric); Translations: [OBSTRUCTIVE SLEEP APNEA] Onset: 10-09-2022 Chronic Residual codes; unclassified (15 sources) Obstructive sleep apnea syndrome; Translations: [Obstructive [...] UNS] Onset: 11-25-2022 Episodic Residual codes; unclassified (3 sources) Localized edema; Translations: [LOCALIZED EDEMA] Onset: 09-01-2022 Episodic Substance-related disorders (10 sources) Nicotine dependence; Translations: [Nicotine dependence, unspecified, uncomplicated] Onset: 05-28-2020 Chronic Comment on above: Added secondary to d ocumentation in Social History. Unclassified (1 source) METAL AND PLASTIC HEATER INJECT NONINSULN ANTIDIAB; Translations: [METAL AND PLASTIC HEATER INJECT NONINSULN ANTIDIAB] Onset: 12-05-2022 Unclassified (3 sources) CONTACT W/AND (SUSP) EXPOS COVID-19; Translations: [CONTACT W/AND (SUSP) EXPOS COVID-19] Onset: 07-08-2022 Unclassified (3 sources) LOW BACK PAIN, UNSPECIFIED; Translations: [LOW BACK PAIN, UNSPECIFIED] Onset: 12-27-2021 Unclassified (1 source) Obesity, class 3; Translations: [Obesity, class 3] Onset: 11-14-2023 Varicose veins of lower extremity (6 sources) Varicose veins of right lower extremity with ulcer of unspecified site; Translations: [Varicose veins of lower extremities with ulcer] Onset: 06-19-2024 06-19-2024 Episodic Viral infection (1 source) COVID-19; Translations: [COVID-19] Onset: 09-29-2022 Past or Other Problems Problem Classification Problem Date Documented Date Episodic/Chronic Acquired foot deformities (1 source) Other deformities of toe(s) (acquired), left foot; Translations: [OTHER DEFORMITIES TOES ACQ LT FOOT] Onset: 09-01-2022 Episodic Calculus of urinary tract (20 sources) Kidney stone; Translations: [Calculus of kidney] Onset: 02-06-2022 Episodic E Codes: Natural/environment (1 source) Other and unspecified overexertion or strenuous movements or postures, initial encounter; Translations: [OTH AND UNS OVREXRT/STRN MVMT/POS INT] Onset: 12-27-2021 Episodic Genitourinary symptoms and ill-defined conditions (20 sources) Proteinuria; Translations: [Proteinuria, unspecified] Onset: 02-06-2022 Resolved: 03-08-2022 Episodic Headache; including migraine (16 sources) Headache; Translations: [Headache disorder] Onset: 01-17-2024 02-06-2022 Episodic Immunizations and screening for infectious disease (16 sources) Encounter for screening for other infectious and parasitic diseases; Translations: [Anti-nuclear factor positive] Onset: 09-16-2020 09-17-2023 Episodic Mood disorders (14 sources) Mood disorders; Translations: [DEPRESSION UNSPECIFIED] Onset: 12-05-2022 01-17-2024 Mycoses (20 sources) Tinea unguium; Translations: [Candidiasis of vagina] Onset: 07-26-2022 Episodic Other connective tissue disease (4 sources) Other muscle spasm; Translations: [OTHER MUSCLE SPASM] Onset: 01-19-2022 Episodic Other diseases of veins and lymphatics (13 sources) Vascular insufficiency; Translations: [Venous insufficiency (chronic) (peripheral)] Onset: 09-17-2023 09-17-2023 Episodic Other hematologic conditions (1 source) Secondary polycythemia Onset: 03-08-2022 Resolved: 03-08-2022 Episodic Other lower respiratory disease (2 sources) Shortness of breath; Translations: [Shortness of breath] Onset: 11-14-2023 Episodic Other nervous system disorders (13 sources) Reduced mobility; Translations: [Other abnormalities of gait and mobility] Onset: 09-17-2023 09-17-2023 Episodic Other non-traumatic joint disorders (1 source) Effusion, left knee; Translations: [EFFUSION LEFT KNEE] Onset: 07-26-2022 Episodic Other non-traumatic joint disorders (1 source) Pain in left knee; Translations: [PAIN IN LEFT KNEE] Onset: 07-26-2022 Episodic Other non-traumatic joint disorders (13 sources) Pain in right knee; Translations: [Pain in joint, lower leg] Onset: 09-17-2023 09-17-2023 Episodic Other nutritional; endocrine; and metabolic disorders (20 sources) Severe obesity; Translations: [Morbid (severe) obesity due to excess calories] Onset: 07-10-2023 Resolved: 04-14-2024 07-10-2023 Chronic Other skin disorders (1 source) Nail dystrophy; Translations: [NAIL DYSTROPHY] Onset: 09-01-2022 Episodic Other skin disorders (1 source) Corns and callosities; Translations: [CORNS AND CALLOSITIES] Onset: 09-01-2022 Episodic Other skin disorders (1 source) Xerosis cutis; Translations: [XEROSIS CUTIS] Onset: 09-01-2022 Episodic Other skin disorders (12 sources) Hyperpigmentation of skin; Translations: [Disorder of pigmentation, unspecified] Onset: 04-14-2024 04-14-2024 Episodic Otitis media and related conditions (13 sources) Acute suppurative otitis media without spontaneous rupture of ear drum; Translations: [Acute suppurative otitis media without spontaneous rupture of ear drum, left ear] Onset: 01-17-2024 Resolved: 07-14-2024 01-17-2024 Episodic Pancreatic disorders (not diabetes) (14 sources) Acute pancreatitis without necrosis or infection, unspecified; Translations: [Pancreatitis] Onset: 10-09-2022 09-17-2023 Episodic Pneumonia (except that caused by tuberculosis or sexually transmitted disease) (13 sources) Pneumonia; Translations: [Pneumonia, unspecified organism] Onset: 09-17-2023 09-17-2023 Episodic Residual codes; unclassified (20 sources) Edema; Translations: [Edema, unspecified] Onset: 07-10-2023 Resolved: 07-10-2023 08-14-2023 Episodic Residual codes; unclassified (20 sources) Bilateral lower limb edema; Translations: [Localized edema] Onset: 07-10-2023 07-10-2023 Episodic Residual codes; unclassified (15 sources) Insomnia; Translations: [Insomnia, unspecified] Onset: 09-17-2023 09-17-2023 Episodic Residual codes; unclassified (17 sources) Tobacco user; Translations: [Tobacco use] Onset: 09-17-2023 09-17-2023 Episodic Residual codes; unclassified (13 sources) Edema of lower extremity; Translations: [Localized edema] Onset: 09-17-2023 Resolved: 09-17-2023 09-17-2023 Episodic Skin and subcutaneous tissue infections (5 sources) Cellulitis of right lower limb; Translations: [Cutaneous abscess of left axilla] Onset: 07-18-2022 Episodic Spondylosis; intervertebral disc disorders; other back problems (15 sources) Lumbar radiculopathy; Translations: [Radiculopathy, lumbar region] [...] Translations: [LOW BACK PAIN, UNSPECIFIED] Onset: 12-24-2021 Unclassified (1 source) Obesity, class 3; Translations: [Obesity, class 3] Onset: 08-08-2024 Results Test Name Value Interpretation Reference Range Facility Office Visiton 08-08-2024 Follow-up visit [id number] Mitzi Macias 1970 F Date Provider Department Center 08/08/2024 [id number] BRIDGES [facility] Family History Problem Relation Age of Onset Heart attack Paternal Grandmother Family Status - Relation Status Age at Paternal Grandmother Level of Service:53721 [place] OFFICE/OUTPATIENT ESTABLISHED MOD MDM 30 MIN Reason for Visit and Comments: Congestive Heart Failure [127] - Denies chest pain, SOB, and palpitations. Hypertension [970041] Hyperlipidemia [182] LVH [Other] Edema [[id number]] - Denies worsening edema. She sees wound care for RLE ulcer. She was seeing the vein specialists here in town but they are moving to [place] in a few weeks. Normal [facility] Glucose (Bld) [Mass/Vol]Orde red By: Mica Sauceda on 05-27-2024 Glucose Blood, POC 158 mg/dL [facility] - Hematology and Cell countson 05-27-2024 HbA1c (Bld) [Mass fraction] 9.2 % [facility] No Panel InformationOrdered By: Mica Sauceda on 05-27-2024 [facility] CREATININEon 05-12-2024 Creatinine [Mass/Vol] 0.92 mg/dL 0.55 - 1.02 mg/dL [facility] GFR/1.73 sq M.predicted CKD-EPI (S/P/Bld) [Vol rate/Area] >60 >=60 mL/min/1.73m 2 [facility] EGFR-NON AF SIERRA LEONEAN >60 >=60 mL/min/1.73m 2 [facility] Healthcare Office Visiton 11-14-2023 Follow-up visit [id number] Mitzi Macias 1970 F Date Provider Department Center 11/14/2023 BHARAT NICOLE MARIO [facility] Family History Problem Relation Age of Onset Heart attack Paternal Grandmother Family Status - Relation Status Age at Paternal Grandmother Level of Service:02694 [place] OFFICE/OUTPATIENT NEW LOW MDM 30 MINUTES Normal [facility] CBC AUTO DIFFon 12-06-2022 BASO # 0.0 103/ul Normal 0.0-0.1 [facility] Comment on above: Performed By: #### C BC #### [facility] [address] [address] [address] Ashlie Hills Basophils/100 WBC (Bld) 0.1 % Critically low 0.2-2.0 [facility] Comment on above: Performed By: #### C BC #### [facility] [address] [place] [address] Dr. Ashlie Hills EO # 0.0 103/ul Normal 0.0-0.7 [facility] Comment on above: Performed By: #### C BC #### [facility] [address] [place] [address] Dr. Ashlie Hills Eosinophils/100 WBC (Bld) 0.0 % Critically low 0.9-7.0 [facility] Comment on above: Performed By: #### C BC #### [facility] [address] [place] [address] Dr. Ashlie Hills Erythrocyte distribution width (RBC) [Ratio] 14.9 % Normal 11.0-15.0 [facility] Comment on above: Performed By: #### C BC #### [facility] [address] [place] [address] Dr. Ashlie Hills Hematocrit (Bld) [Volume fraction] 46.2 % Normal 36.0-48.0 [facility] Comment on above: Performed By: #### C BC #### [facility] [address] [place] [address] Dr. Ashlie Hills Hemoglobin (Bld) [Mass/Vol] 14.7 g/dL Normal 12.0-16.0 [facility] Comment on above: Performed By: #### C BC #### [facility] [address] [place] [address] Dr. Ashlie Hills IG # 0.06 10e3/ul Critically high 0.00-0.03 [facility] Comment on above: Performed By: #### C BC #### [facility] [address] [place] [address] Dr. Ashlie Hills IG % 0.4 % Normal 0.0-0.5 [facility] Comment on above: Performed By: #### C BC #### [facility] [address] [place] [address] Dr. Ashlie Hills LYMPH # 1.3 103/ul Normal 1.2-3.8 [facility] Comment on above: Performed By: #### C BC #### [facility] [address] [place] [address] Dr. Ashlie Hills Lymphocytes/100 WBC (Bld) 9.4 % Critically low 20.5-60.0 [facility] Comment on above: Performed By: #### C BC #### [facility] [address] [place] [address] Dr. Ashlie Hills MANUAL DIFF REQ NO Normal [facility] Comment on above: Performed By: #### C BC #### [facility] [address] [place] [address] Dr. Ashlie Hills MCH (RBC) [Entitic mass] 28.4 pg Normal 26.7-34.0 [facility] Comment on above: Performed By: #### C BC #### [facility] [address] [place] [address] Dr. Ashlie Hills MCHC (RBC) [Mass/Vol] 31.8 g/dL Normal 29.9-35.2 [facility] Comment on above: Performed By: #### C BC #### [facility] [address] [place] [address] Dr. Ashlie Hills MCV (RBC) [Entitic vol] 89.4 fL Normal 81.0-99.0 [facility] Comment on above: Performed By: #### C BC #### [facility] [address] [place] [address] Dr. Ashlie Hills MONO # 0.5 103/ul Normal 0.3-0.8 [facility] Comment on above: Performed By: #### C BC #### [facility] [address] [place] [address] Dr. Ashlie Hills Monocytes/100 WBC (Bld) 3.4 % Normal 1.7-12.0 [facility] Comment on above: Performed By: #### C BC #### [facility] [address] [place] [address] Dr. Ashlie Hills NEUT # 11.8 103/ul Critically high 1.4-6.5 [facility] Comment on above: Performed By: #### C BC #### [facility] [address] [place] [address] Dr. Ashlie Hills Neutrophils/100 WBC (Bld) 86.7 % Critically high 43.0-75.0 [facility] Comment on above: Performed By: #### C BC #### [facility] [address] [place] [address] Dr. Ashlie Hills Platelet mean volume (Bld) [Entitic vol] 12.6 fL Normal 9.5-13.5 [facility] Comment on above: Performed By: #### C BC #### [facility] [address] [place] [address] Dr. Ashlie Hills PLT 133 103/ul Critically low 150-450 [facility] Comment on above: Performed By: #### C BC #### [facility] [address] [place] [address] Dr. Ashlie Hills RBC 5.17 106/ul Normal 4.20-5.40 [facility] Comment on above: Performed By: #### C BC #### [facility] [address] [place] [address] Dr. Ashlie Hills WBC 13.6 103/ul Critically high 4.0-11.0 [facility] Comment on above: Performed By: #### C BC #### [facility] [address] [place] [address] Dr. Ashlie Hills MAGNESIUMon 12-06-2022 Magnesium [Mass/Vol] 2.2 mg/dL Normal 1.8-2.4 [facility] Comment on above: Performed By: #### I NFLUAB #### [facility] [address] [place] [address] Dr. Ashlie Hills POINT OF CARE GLUCOSEon 11-08 Glucose [Mass/Vol] 340 mg/dL Critically high 74-106 [facility] Comment on above: Performed By: #### P OCGLUC #### [facility] [address] [place] [address] Dr. Ashlie Hills Glucose [Mass/Vol] 276 mg/dL Critically high 74-106 [facility] Comment on above: Performed By: #### C BC #### [facility] [address] [place] [address] Dr. Ashlie Hills Glucose [Mass/Vol] 333 mg/dL Critically high 74-106 [facility] Comment on above: Performed By: #### C BC #### [facility] [address] [place] [address] Dr. Ashlie Hills PROF CHEM 8 (BAS METB)on Anion gap [Moles/Vol] 10.9 mmol/L Normal [facility] Comment on above: Performed By: #### I NFLUAB #### [facility] [address] [place] [address] Dr. Ashlie Hills Calcium [Mass/Vol] 9.3 mg/dL Normal 8.5-10.1 [facility] Comment on above: Performed By: #### I NFLUAB #### [facility] [address] [place] [address] Dr. Ashlie Hills Chloride [Moles/Vol] 103 mmol/L Normal 98-107 [facility] Comment on above: Performed By: #### I NFLUAB #### [facility] [address] [place] [address] Dr. Ashile Hills CO2 [Moles/Vol] 31.2 mmol/L Normal 21.0-32.0 [facility] Comment on above: Performed By: #### I NFLUAB #### [facility] [address] [place] [address] Dr. Ashlie Hills Creatinine [Mass/Vol] 0.96 mg/dL Normal 0.55-1.02 [facility] Comment on above: Performed By: #### I NFLUAB #### [facility] [address] [place] [address] Dr. Ashlie Hills EGFR-AF SIERRA LEONEAN >60 Normal >=60 [facility] Comment on above: Performed By: #### I NFLUAB #### [facility] [address] [place], [place] [id number] Dr. Ashlie Hills EGFR-NON AF SIERRA LEONEAN >60 Normal >=60 [facility] Comment on above: Performed By: #### I NFLUAB #### [facility] [address] [place] [address] Dr. Ashlie Hills Glucose [Mass/Vol] 288 mg/dL Critically high 74-106 [facility] Comment on above: Performed By: #### I NFLUAB #### [facility] [address] [place] [address] Dr. Ashlie Hills Potassium [Moles/Vol] 5.1 mmol/L Normal 3.5-5.1 [facility] Comment on above: Performed By: #### I NFLUAB #### [facility] [address] [place] [address] Dr. Ashlie Hills Sodium [Moles/Vol] 140 mmol/L Normal 136-145 [facility] Comment on above: Performed By: #### I NFLUAB #### [facility] [address] [place] [address] Dr. Ashlie Hills Urea nitrogen [Mass/Vol] 30.0 mg/dL Critically high 7.0-18.0 [facility] Comment on above: Performed By: #### I NFLUAB #### [facility] [address] [place] [address] Dr. Ashlie Hills Urea nitrogen/Creatinine [Mass ratio] 31.2 mg/mg Normal [facility] Comment on above: Performed By: #### I NFLUAB #### [facility] [address] [place] [address] Dr. Ashlie Hills CBC AUTO DIFFon 12-05-2022 BASO # 0.0 103/ul Normal 0.0-0.1 [facility] Comment on above: Performed By: #### C BC #### [facility] [address] [place] [address] Dr. Ashlie Hills Basophils/100 WBC (Bld) 0.4 % Normal 0.2-2.0 [facility] Comment on above: Performed By: #### C BC #### [facility] [address] [place] [address] Dr. Ashlie Hills EO # 0.0 103/ul Normal 0.0-0.7 [facility] Comment on above: Performed By: #### C BC #### [facility] [address] [place] [address] Dr. Ashlie Hills Eosinophils/100 WBC (Bld) 0.0 % Critically low 0.9-7.0 [facility] Comment on above: Performed By: #### C BC #### [facility] [address] [place] [address] Dr. Ashlie Hills Erythrocyte distribution width (RBC) [Ratio] 14.8 % Normal 11.0-15.0 [facility] Comment on above: Performed By: #### C BC #### [facility] [address] [place] [address] Dr. Ashlie Hills Hematocrit (Bld) [Volume fraction] 49.9 % Critically high 36.0-48.0 [facility] Comment on above: Performed By: #### C BC #### [facility] [address] [place] [address] Dr. Ashlie Hills Hemoglobin (Bld) [Mass/Vol] 15.7 g/dL Normal 12.0-16.0 [facility] Comment on above: Performed By: #### C BC #### [facility] [address] [place] [address] Dr. Ashlie Hills IG # 0.04 10e3/ul Critically high 0.00-0.03 [facility] Comment on above: Performed By: #### C BC #### [facility] [address] [place] [address] Dr. Ashlie Hills IG % 0.5 % Normal 0.0-0.5 [facility] Comment on above: Performed By: #### C BC #### [facility] [address] [place] [address] Dr. Ashlie Hills LYMPH # 1.1 103/ul Critically low 1.2-3.8 [facility] Comment on above: Performed By: #### C BC #### [facility] [address] [place] [address] Dr. Ashlie Hills Lymphocytes/100 WBC (Bld) 12.7 % Critically low 20.5-60.0 [facility] Comment on above: Performed By: #### C BC #### [facility] [address] [place] [address] Dr. Ashlie Hills MANUAL DIFF REQ NO Normal [facility] [place] Comment on above: Performed By: #### C BC #### [facility] [address] [address] [address] Ashlie Hills MCH (RBC) [Entitic mass] 28.1 pg Normal 26.7-34.0 [facility] Comment on above: Performed By: #### C BC #### [facility] [address] [place] [address] Dr. Ashlie Hills MCHC (RBC) [Mass/Vol] 31.5 g/dL Normal 29.9-35.2 [facility] Comment on above: Performed By: #### C BC #### [facility] [address] [place] [address] Dr. Ashlie Hills MCV (RBC) [Entitic vol] 89.3 fL Normal 81.0-99.0 [facility] Comment on above: Performed By: #### C BC #### [facility] [address] [place] [address] Dr. Ashlie Hills MONO # 0.1 103/ul Critically low 0.3-0.8 [facility] Comment on above: Performed By: #### C BC #### [facility] [address] [place] [address] Dr. Ashlie Hills Monocytes/100 WBC (Bld) 1.3 % Critically low 1.7-12.0 [facility] Comment on above: Performed By: #### C BC #### [facility] [address] [place] [address] Dr. Ashlie Hills NEUT # 7.2 103/ul Critically high 1.4-6.5 [facility] Comment on above: Performed By: #### C BC #### [facility] [address] [place] [address] Dr. Ashlie Hills Neutrophils/100 WBC (Bld) 85.1 % Critically high 43.0-75.0 [facility] Comment on above: Performed By: #### C BC #### [facility] [address] [address] [address] Ashlie Hills Platelet mean volume (Bld) [Entitic vol] 12.2 fL Normal 9.5-13.5 [facility] Comment on above: Performed By: #### C BC #### [facility] [address] [address] [address] Ashlie Hills PLT 116 103/ul Critically low 150-450 [facility] Comment on above: Performed By: #### C BC #### [facility] [address] [address] [address] Ashlie Hills RBC 5.59 106/ul Critically high 4.20-5.40 [facility] Comment on above: Performed By: #### C BC #### [facility] [address] [address] [address] Ashlie Hills WBC 8.5 103/ul Normal 4.0-11.0 [facility] Comment on above: Performed By: #### C BC #### [facility] [address] [address] [address] Ashlie Hills CTA CHEST WO W [...] finding. IMPRESSION: No evidence of pulmonary emboli. Infectious/inflamma tory changes, predominantly in the left upper lobe, with mild involvement in the left lower lobe. Mild peribronchial thickening. Mildly enlarged mediastinal/hilar lymph nodes, likely reactive. Increase in size of now 3.6 cm left adrenal myelolipoma. Electronically authenticated by: HATTIE GOFF Date: 2022-12-05 01:52 Normal [facility] MAGNESIUMon 12-05-2022 Magnesium [Mass/Vol] 2.1 mg/dL Normal 1.8-2.4 [facility] Comment on above: Performed By: #### P OCGLUC #### [facility] [address] [place] [address] Dr. Ashlie Hills POINT OF CARE GLUCOSEon 11-08 Glucose [Mass/Vol] 293 mg/dL Critically high -106 [facility] Comment on above: Performed By: #### P OCGLUC #### [facility] [address] [place] [address] Dr. Ahslie Hills Glucose [Mass/Vol] 269 mg/dL Critically high -106 [facility] Comment on above: Performed By: #### P OCGLUC #### [facility] [address] [place] [address] Dr. Ashlie Hills Glucose [Mass/Vol] 223 mg/dL Critically high -106 [facility] Comment on above: Performed By: #### C VDAGS #### [facility] [address] [place] [address] Dr. Ashlie Hills PROF CHEM 8 (BAS METB)on Anion gap [Moles/Vol] 11.6 mmol/L Normal [facility] Comment on above: Performed By: #### P OCGLUC #### [facility] [address] [address] [address] Ashlie Hills Calcium [Mass/Vol] 9.2 mg/dL Normal 8.5-10.1 [facility] Comment on above: Performed By: #### P OCGLUC #### [facility] [address] [address] [address] Ashlie Hills Chloride [Moles/Vol] 102 mmol/L Normal 98-107 [facility] Comment on above: Performed By: #### P OCGLUC #### [facility] [address] [address] [address] Ashlie Hills CO2 [Moles/Vol] 28.7 mmol/L Normal 21.0-32.0 [facility] Comment on above: Performed By: #### P OCGLUC #### [facility] [address] [address] [address] Ashlie Hills Creatinine [Mass/Vol] 1.04 mg/dL Critically high 0.55-1.02 [facility] Comment on above: Performed By: #### P OCGLUC #### [facility] [address] [address] [address] Ashlie Hills EGFR-AF SIERRA LEONEAN >60 Normal >=60 [facility] Comment on above: Performed By: #### P OCGLUC #### [facility] [address] [address] [address] Ashlie Hills EGFR-NON AF SIERRA LEONEAN 56 mL/min/1.73m2 Critically low >=60 [facility] Comment on above: Performed By: #### P OCGLUC #### [facility] [address] [address] [address] Ashlie Hills Glucose [Mass/Vol] 231 mg/dL Critically high 74-106 [facility] Comment on above: Performed By: #### P OCGLUC #### [facility] [address] [address] [address] Ashlie Hills Potassium [Moles/Vol] 4.3 mmol/L Normal 3.5-5.1 [facility] Comment on above: Performed By: #### P OCGLUC #### [facility] [address] [place] [address] Dr. Ashlie Hills Sodium [Moles/Vol] 138 mmol/L Normal 136-145 [facility] Comment on above: Performed By: #### P OCGLUC #### [facility] [address] [place] [address] Dr. Ashlie Hills Urea nitrogen [Mass/Vol] 17.0 mg/dL Normal 7.0-18.0 [facility] Comment on above: Performed By: #### P OCGLUC #### [facility] [address] [place] [address] Dr. Ashlie Hills Urea nitrogen/Creatinine [Mass ratio] 16.3 mg/mg Normal [facility] Comment on above: Performed By: #### P OCGLUC #### [facility] [address] [place] [address] Dr. Ashlie Hills RESPIRATORY PANEL PLUSon Adenovirus Not detected Normal NOT DETECTED [facility] Comment on above: Performed By: #### C VDAGS #### [facility] [address] [place] [address] Dr. Ashlie Hills B. Parapertusis Not detected Normal NOT DETECTED [facility] Comment on above: Performed By: #### C VDAGS #### [facility] [address] [place] [address] Dr. Ashlie Shaffer. Pertussis Not detected Normal NOT DETECTED [facility] Comment on above: Performed By: #### C VDAGS #### [facility] [address] [place] [address] Dr. Ashlie Hills Chlamydia Pneumoniae Not detected Normal NOT DETECTED [facility] Comment on above: Performed By: #### C VDAGS #### [facility] [address] [place] [address] Dr. Ashlie Hills Coronavirus 229E Not detected Normal NOT DETECTED [facility] Comment on above: Performed By: #### C VDAGS #### [facility] [address] [place] [address] Dr. Ashlie Hills Coronavirus HKU1 Not detected Normal NOT DETECTED [facility] Comment on above: Performed By: #### C VDAGS #### [facility] [address] [place] [address] Dr. Ashlie Hills Coronavirus NL63 Not detected Normal NOT DETECTED [facility] Comment on above: Performed By: #### C VDAGS #### [facility] [address] [address] [address] Ashlie Hills Coronavirus OC43 Not detected Normal NOT DETECTED [facility] Comment on above: Performed By: #### C VDAGS #### [facility] [address] [place] [address] Dr. Ashlie Hills Influenza A H1 Not detected Normal NOT DETECTED [facility] Comment on above: Performed By: #### C VDAGS #### [facility] [address] [place] [address] Dr. Ashlie Hills Influenza A H1 2009 Not detected Normal NOT DETECTED [facility] Comment on above: Performed By: #### C VDAGS #### [facility] [address] [place] [address] Dr. Ashlie Hills Influenza A H3 Not detected Normal NOT DETECTED [facility] Comment on above: Performed By: #### C VDAGS #### [facility] [address] [place] [address] Dr. Ashlie Hills Influenza B Not detected Normal NOT DETECTED [facility] [place] Comment on above: Performed By: #### C VDAGS #### [facility] [address] [place] [address] Dr. Ashlie Hills Metapneumovirus Not detected Normal NOT DETECTED [facility] Comment on above: Performed By: #### C VDAGS #### [facility] [address] [place] [address] Dr. Ashlie Hills Mycoplas. Pneumoniae Not detected Normal NOT DETECTED [facility] Comment on above: Performed By: #### C VDAGS #### [facility] [address] [place] [address] Dr. Ashlie Hills Parainfluenza 1 Not detected Normal NOT DETECTED [facility] Comment on above: Performed By: #### C VDAGS #### [facility] [address] [place] [address] Dr. Ashlie Hills Parainfluenza 2 Not detected Normal NOT DETECTED [facility] Comment on above: Performed By: #### C VDAGS #### [facility] [address] [place] [address] Dr. Ashlie Hills Parainfluenza 3 Detected Abnormal NOT DETECTED [facility] Comment on above: Performed By: #### C VDAGS #### [facility] [address] [place] [address] Dr. Ashlie Hills Parainfluenza 4 Not detected Normal NOT DETECTED [facility] Comment on above: Performed By: #### C VDAGS #### [facility] [address] [place] [address] Dr. Ashlie Hills Rhino/Enterovirus Not detected Normal NOT DETECTED [facility] Comment on above: Performed By: #### C VDAGS #### [facility] [address] [place] [address] Dr. Ashlie Hills RP2 Header 1 RESPIRATORY PANEL: VIRUSES Normal [facility] Comment on above: Performed By: #### C VDAGS #### [facility] [address] [place] [address] Dr. Ashlie Hills RP2 Header 2 RESPIRATORY PANEL: BACTERIA Normal [facility] Comment on above: Performed By: #### C VDAGS #### [facility] [address] [place] [address] Dr. Ashlie Hills RSV Not detected Normal NOT DETECTED [facility] Comment on above: Performed By: #### C VDAGS #### [facility] [address] [place] [address] Dr. sAhlie Hills SARS-CoV-2 (COVID-19) RNA MADDY+probe Ql (Unsp spec) Not detected Normal NOT DETECTED [facility] Comment on above: Performed By: #### C VDAGS #### [facility] [address] [place] [address] Dr. Ashlie Hills XR CHEST 1 Von [...] MARYANNE POWER Date: 2022-12-04 22:23 Normal [facility] BLOOD GASES BTYon 12-04-2022 02 MODE ROOM AIR Normal [facility] Comment on above: Performed By: #### C BC #### [facility] [address] [place] [address] Dr. Ashlie Hills ALLENS TEST Positive Normal [facility] Comment on above: Performed By: #### C BC #### [facility] [address] [place] [address] Dr. Ashlie Hills Base excess Calc (Bld) [Moles/Vol] 5.4 mmol/L Critically high -2.0-2.0 [facility] Comment on above: Performed By: #### C BC #### [facility] [address] [place] [address] Dr. Ashlie Hills BIPAP PRESSURE Normal [facility] Comment on above: Performed By: #### C BC #### [facility] [address] [place] [address] Dr. Ashlie Hills CPAP Normal [facility] Comment on above: Performed By: #### C BC #### [facility] [address] [place] [address] Dr. Ashlie Hills FIO2 Normal [facility] Comment on above: Performed By: #### C BC #### [facility] [address] [place] [address] Dr. Ashlie Hills HCO3 (Bld) [Moles/Vol] 30.8 mmol/L Critically high 22.0-26 .0 [facility] Comment on above: Performed By: #### C BC #### [facility] [address] [place] [address] Dr. Ashlie Hills LPM Normal [facility] Comment on above: Performed By: #### C BC #### [facility] [address] [place] [address] Dr. Ashlie Hills MINUTE VOLUME Normal [facility] Comment on above: Performed By: #### C BC #### [facility] [address] [place] [address] Dr. Ashlie Hills Oxygen (Bld) [Partial pressure] 46.3 mm[Hg] Critically low 80.0-100.0 [facility] Comment on above: Performed By: #### C BC #### [facility] [address] [place] [address] Dr. Ashlie Hills Oxygen saturation in Blood 83.9 % Critically low 95.0-100.0 [facility] Comment on above: Performed By: #### C BC #### [facility] [address] [place] [address] Dr. Ashlie Hills PCO2 54.2 mmHg Critically high 35.0-45.0 [facility] Comment on above: Performed By: #### C BC #### [facility] [address] [place] [address] Dr. Ashlie Hills PEEP [facility] Comment on above: Performed By: #### C BC #### [facility] [address] [place] [address] Dr. Ashlie Hills pH (Bld) 7.363 [pH] Normal 7.350-7.450 [facility] Comment on above: Performed By: #### C BC #### [facility] [address] [place] [address] Dr. Ashlie Hills PIP [facility] Comment on above: Performed By: #### C BC #### [facility] [address] [place] [address] Dr. Ashlie Hills PS [facility] Comment on above: Performed By: #### C BC #### [facility] [address] [place] [address] Dr. Ashlie Hills PUNCTURE SITE [facility] Comment on above: Performed By: #### C BC #### [facility] [address] [place] [address] Dr. Ashlie Hills [facility] Comment on above: Performed By: #### C BC #### [facility] [address] [place] [address] Dr. Ashlie Hills [facility] Comment on above: Performed By: #### C BC #### [facility] [address] [place] [address] Dr. Aslhie Hills [facility] Comment on above: Performed By: #### C BC #### [facility] [address] [place] [address] Dr. Ashlie Hills BNPon 12-04-2022 Natriuretic peptide B (Bld) [Mass/Vol] 76.0 pg/mL Normal <=900.0 [facility] Comment on above: Performed By: #### P OCGLUC #### [facility] [address] [place] [address] Dr. Ashlie Hills CBC AUTO DIFFon 12-04-2022 BASO # 0.1 103/ul Normal 0.0-0.1 [facility] Comment on above: Performed By: #### C BC #### [facility] [address] [place] [address] Dr. Ashlie Hills Basophils/100 WBC (Bld) 0.6 % Normal 0.2-2.0 [facility] Comment on above: Performed By: #### C BC #### [facility] [address] [place] [address] Dr. Ashlie Hills EO # 0.2 103/ul Normal 0.0-0.7 [facility] Comment on above: Performed By: #### C BC #### [facility] [address] [place] [address] Dr. Ashlie Hills Eosinophils/100 WBC (Bld) 1.9 % Normal 0.9-7.0 [facility] Comment on above: Performed By: #### C BC #### [facility] [address] [place] [address] Dr. Ashlie Hills Erythrocyte distribution width (RBC) [Ratio] 15.0 % Normal 11.0-15.0 [facility] Comment on above: Performed By: #### C BC #### [facility] [address] [address] [address] Ashlie Hills Hematocrit (Bld) [Volume fraction] 49.1 % Critically high 36.0-48.0 [facility] Comment on above: Performed By: #### C BC #### [facility] [address] [address] [address] Ashlie Hills Hemoglobin (Bld) [Mass/Vol] 15.6 g/dL Normal 12.0-16.0 [facility] Comment on above: Performed By: #### C BC #### [facility] [address] [address] [address] Ashlie Hills IG # 0.02 10e3/ul Normal 0.00-0.03 [facility] Comment on above: Performed By: #### C BC #### [facility] [address] [address] [address] Ashlie Hills IG % 0.2 % Normal 0.0-0.5 [facility] Comment on above: Performed By: #### C BC #### [facility] [address] [address] [address] Ashlie Hills LYMPH # 2.8 103/ul Normal 1.2-3.8 [facility] Comment on above: Performed By: #### C BC #### [facility] [address] [address] [address] Ashlie Hills Lymphocytes/100 WBC (Bld) 29.9 % Normal 20.5-60.0 [facility] Comment on above: Performed By: #### C BC #### [facility] [address] [address] [address] Ashlie Hills MANUAL DIFF REQ NO Normal [facility] Comment on above: Performed By: #### C BC #### [facility] [address] [place] [address] Dr. Ashlie Hills MCH (RBC) [Entitic mass] 28.5 pg Normal 26.7-34.0 [facility] Comment on above: Performed By: #### C BC #### [facility] [address] [address] [address] Ashlie Hills MCHC (RBC) [Mass/Vol] 31.8 g/dL Normal 29.9-35.2 [facility] Comment on above: Performed By: #### C BC #### [facility] [address] [address] [address] Ashlie Hills MCV (RBC) [Entitic vol] 89.8 fL Normal 81.0-99.0 [facility] Comment on above: Performed By: #### C BC #### [facility] [address] [address] [address] Ashlie Hills MONO # 1.0 103/ul Critically high 0.3-0.8 [facility] Comment on above: Performed By: #### C BC #### [facility] [address] [address] [address] Ashlie Hills Monocytes/100 WBC (Bld) 10.6 % Normal 1.7-12.0 [facility] Comment on above: Performed By: #### C BC #### [facility] [address] [address] [address] Ashlie Hills NEUT # 5.3 103/ul Normal 1.4-6.5 [facility] Comment on above: Performed By: #### C BC #### [facility] [address] [address] [address] Ashlie Hills Neutrophils/100 WBC (Bld) 56.8 % Normal 43.0-75.0 [facility] Comment on above: Performed By: #### C BC #### [facility] [address] [address] [address] Ashlie Hills Platelet mean volume (Bld) [Entitic vol] 12.5 fL Normal 9.5-13.5 [facility] Comment on above: Performed By: #### C BC #### [facility] [address] [address] [address] Ashlie Hills PLT 109 103/ul Critically low 150-450 [facility] Comment on above: Performed By: #### C BC #### [facility] [address] [place] [address] Dr. Ashlie Hills RBC 5.47 106/ul Critically high 4.20-5.40 [facility] Comment on above: Performed By: #### C BC #### [facility] [address] [place] [address] Dr. Ashlie Hills WBC 9.4 103/ul Normal 4.0-11.0 [facility] Comment on above: Performed By: #### C BC #### [facility] [address] [place] [address] Dr. Ashlie Hills PROF 14(COMP METB)on 023 Albumin [Mass/Vol] 2.9 g/dL Critically low 3.4-5.0 e [facility] Comment on above: Performed By: #### C BC #### [facility] [address] [place] [address] Dr. Ashlie Hills Albumin/Globulin [Mass ratio] 0.6 {ratio} Normal [facility] Comment on above: Performed By: #### C BC #### [facility] [address] [place] [address] Dr. Ashlie Hills ALP [Catalytic activity/Vol] 64 U/L Normal 46-116 [facility] Comment on above: Performed By: #### C BC #### [facility] [address] [place] [address] Dr. Ashlie Hills ALT [Catalytic activity/Vol] 16 U/L Normal 14-59 [facility] Comment on above: Performed By: #### C BC #### [facility] [address] [place] [address] Dr. Ashlie Hills Anion gap [Moles/Vol] 9.6 mmol/L Normal [facility] Comment on above: Performed By: #### C BC #### [facility] [address] [place] [address] Dr. Ashlie Hills AST [Catalytic activity/Vol] 16 U/L Normal 15-37 [facility] Comment on above: Performed By: #### C BC #### [facility] [address] [place] [address] Dr. Ashlie Hills Bilirubin [Mass/Vol] 0.5 mg/dL Normal 0.2-1.0 [facility] Comment on above: Performed By: #### C BC #### [facility] [address] [address] [address] Ashlie Hills Calcium [Mass/Vol] 8.7 mg/dL Normal 8.5-10.1 [facility] Comment on above: Performed By: #### C BC #### [facility] [address] [address] [address] Ashlie Hills Chloride [Moles/Vol] 103 mmol/L Normal 98-107 [facility] Comment on above: Performed By: #### C BC #### [facility] [address] [address] [address] Ashlie Hills CO2 [Moles/Vol] 30.7 mmol/L Normal 21.0-32.0 [facility] Comment on above: Performed By: #### C BC #### [facility] [address] [place] [address] Dr. Ashlie Hills Creatinine [Mass/Vol] 0.96 mg/dL Normal 0.55-1.02 [facility] Comment on above: Performed By: #### C BC #### [facility] [address] [place] [address] Dr. Ashlie Hills EGFR-AF SIERRA LEONEAN >60 Normal >=60 [facility] Comment on above: Performed By: #### C BC #### [facility] [address] [place] [address] Dr. Ashlie Hills EGFR-NON AF SIERRA LEONEAN >60 Normal >=60 [facility] Comment on above: Performed By: #### C BC #### [facility] [address] [address] [address] Ashlie Hills Globulin (S) [Mass/Vol] 4.7 g/dL Normal [facility] Comment on above: Performed By: #### C BC #### [facility] [address] [address] [address] Ashlie Hills Glucose [Mass/Vol] 170 mg/dL Critically high 74-106 [facility] Comment on above: Performed By: #### C BC #### [facility] [address] [address] [address] Ashlie Hills Potassium [Moles/Vol] 4.3 mmol/L Normal 3.5-5.1 [facility] Comment on above: Performed By: #### C BC #### [facility] [address] [address] [address] Ashlie Hills Protein [Mass/Vol] 7.6 g/dL Normal 6.4-8.2 [facility] Comment on above: Performed By: #### C BC #### [facility] [address] [address] [address] Ashlie Hills Sodium [Moles/Vol] 139 mmol/L Normal 136-145 [facility] Comment on above: Performed By: #### C BC #### [facility] [address] [address] [address] Ashlie Hills Urea nitrogen [Mass/Vol] 16.0 mg/dL Normal 7.0-18.0 [facility] Comment on above: Performed By: #### C BC #### [facility] [address] [address] [address] Ashlie Hills Urea nitrogen/Creatinine [Mass ratio] 16.7 mg/mg Normal [facility] Comment on above: Performed By: #### C BC #### [facility] [address] [address] [address] Ashlie Hills SYMPTOMATIC COVID-19 ANTIGEN on 12-04-2022 EUA Statement SEE BELOW Normal [facility] [...] sooner. Performed By: #### C VDAGS #### [facility] [address] [place] [address] Dr. Ashlie Hills SARS-CoV-2 (COVID-19) RNA MADDY+probe Ql (Unsp spec) Negative Normal NEGATIVE [facility] Comment on above: Performed By: #### C VDAGS #### [facility] [address] [place] [address] Dr. Ashlie Hills TROPONIN, HIGH SENSITIVITYon 12-04-2022 HSTROP 8.9 pg/mL Normal 4.0-51.3 [facility] Comment on above: Result Comment: CUT- OFF POINTS HAVE BEEN ESTABLISHED BASED ON THE FOURTH UNIVERSAL DEFINITIONS OF MYOCARDIAL INFARCTION. THE UPPER REFERENCE LIMIT (URL) OF TROPONIN, DEFINED THE 99TH PERCENTILE OF cTnI DISTRIBUTION IN A REFERENCE POPULATION, HAS BEEN CONFIRMED THE DECISION THRESHOLD FOR GA DIAGNOSIS. Performed By: #### P OCGLUC #### [facility] [address] [place] [address] Dr. Ashlie Hills MICROALBUMIN, RAND URon - mALB 35.8 mg/dL Critically high <=30.0 [facility] [place] Comment on above: Performed By: #### C VDAGS #### [facility] [address] [place] [address] Dr. Ashlie Hills UA RANDOM W/MICROSCOPICon BACTERIA NONE SEEN Normal NONE SEEN [facility] Comment on above: Performed By: #### C VDAGS #### [facility] [address] [place] [address] Dr. Ashlie Hills Bilirubin Ql (U) Negative Normal NEGATIVE [facility] Comment on above: Performed By: #### C VDAGS #### [facility] [address] [place] [address] Dr. Ashlie Hills CAST SEEN Abnormal NONE SEEN [facility] Comment on above: Performed By: #### C VDAGS #### [facility] [address] [place] [address] Dr. Ashlie Hills Clarity (U) CLEAR Normal CLEAR [facility] Comment on above: Performed By: #### C VDAGS #### [facility] [address] [place] [address] Dr. Ashlie Hills Color (U) YELLOW Normal YELLOW [facility] Comment on above: Performed By: #### C VDAGS #### [facility] [address] [place] [address] Dr. Ashlie Hills Crystals LM Nom (Urine sed) NONE SEEN Normal NONE SEEN [facility] Comment on above: Performed By: #### C VDAGS #### [facility] [address] [place] [address] Dr. Ashlie Hills Epithelial cells LM Ql (Urine sed) MODERATE Abnormal NONE SEEN /RARE [facility] Comment on above: Performed By: #### C VDAGS #### [facility] [address] [place] [address] Dr. Ashlie Hills Glucose Ql (U) Negative Normal NEGATIVE [facility] Comment on above: Performed By: #### C VDAGS #### [facility] [address] [place] [address] Dr. Ashlie Hills Hemoglobin Ql (U) TRACE-INTACT Abnormal NEGATIVE [facility] Comment on above: Performed By: #### C VDAGS #### [facility] [address] [place] [address] Dr. Ashlie Hills Ketones Ql (U) Negative Normal NEGATIVE [facility] Comment on above: Performed By: #### C VDAGS #### [facility] [address] [place] [address] Dr. Ashlie Hills LEUKOCYTES Negative Normal NEGATIVE [facility] Comment on above: Performed By: #### C VDAGS #### [facility] [address] [place] [address] Dr. Ashlie Hills MUCOUS NONE SEEN Normal NONE SEEN [facility] Comment on above: Performed By: #### C VDAGS #### [facility] [address] [place] [address] Dr. Ashlie Hills Nitrite Ql (U) Negative Normal NEGATIVE [facility] Comment on above: Performed By: #### C VDAGS #### [facility] [address] [place] [address] Dr. Ashlie Hills pH (U) 5.0 [pH] Normal 5-9 [facility] Comment on above: Performed By: #### C VDAGS #### [facility] [address] [place] [address] Dr. Ashlie Hills RBC 0-2 Normal 0-2 [facility] Comment on above: Performed By: #### C VDAGS #### [facility] [address] [place] [address] Dr. Ashlie Hills SPEC GRAVITY 1.030 Abnormal 1.005-<=1.025 [facility] Comment on above: Performed By: #### C VDAGS #### [facility] [address] [place] [address] Dr. Ashlie Hills UA PROTEIN 100 mg/dl Abnormal NEGATIVE/ TRACE [facility] Comment on above: Performed By: #### C VDAGS #### [facility] [address] [place] [address] Dr. Ashlie Hills Urobilinogen Qn (U) 0.2 {Little'U}/dL Normal 0.2 - 1. 0 [facility] Comment on above: Performed By: #### C VDAGS #### [facility] [address] [place] [address] Dr. Ashlie Hills WBC NONE SEEN Normal NONE SEEN [facility] Comment on above: Performed By: #### C VDAGS #### [facility] [address] [place] [address] Dr. Ashlie Hills CBC AUTO DIFFon 11-22-2022 BASO # 0.0 103/ul Normal 0.0-0.1 [facility] Comment on above: Performed By: #### C BC #### [facility] [address] [place] [address] Dr. Ashlie Hills Basophils/100 WBC (Bld) 0.3 % Normal 0.2-2.0 [facility] Comment on above: Performed By: #### C BC #### [facility] [address] [address] [address] Ashlie Hills EO # 0.4 103/ul Normal 0.0-0.7 [facility] Comment on above: Performed By: #### C BC #### [facility] [address] [place] [address] Dr. Ashlie Hills Eosinophils/100 WBC (Bld) 3.0 % Normal 0.9-7.0 [facility] Comment on above: Performed By: #### C BC #### [facility] [address] [place] [address] Dr. Ashlie Hills Erythrocyte distribution width (RBC) [Ratio] 15.3 % Critically high 11.0-15.0 [facility] Comment on above: Performed By: #### C BC #### [facility] [address] [place] [address] Dr. Ashlie Hills Hematocrit (Bld) [Volume fraction] 52.4 % Critically high 36.0-48.0 [facility] Comment on above: Performed By: #### C BC #### [facility] [address] [place] [address] Dr. Ashlie Hills Hemoglobin (Bld) [Mass/Vol] 16.8 g/dL Critically high 12.0-16.0 [facility] Comment on above: Performed By: #### C BC #### [facility] [address] [place] [address] Dr. Ashlie Hills IG # 0.04 10e3/ul Critically high 0.00-0.03 [facility] Comment on above: Performed By: #### C BC #### [facility] [address] [place] [address] Dr. Ashlie Hills IG % 0.3 % Normal 0.0-0.5 [facility] Comment on above: Performed By: #### C BC #### [facility] [address] [place] [address] Dr. Ashlie Hills LYMPH # 4.5 103/ul Critically high 1.2-3.8 [facility] Comment on above: Performed By: #### C BC #### [facility] [address] [place] [address] Dr. Ashlie Hills Lymphocytes/100 WBC (Bld) 33.2 % Normal 20.5-60.0 [facility] Comment on above: Performed By: #### C BC #### [facility] [address] [place] [address] Dr. Ashlie Hills MANUAL DIFF REQ NO Normal [facility] Comment on above: Performed By: #### C BC #### [facility] [address] [place] [address] Dr. Ashlie Hills MCH (RBC) [Entitic mass] 28.0 pg Normal 26.7-34.0 [facility] Comment on above: Performed By: #### C BC #### [facility] [address] [place] [address] Dr. Ashlie Hills MCHC (RBC) [Mass/Vol] 32.1 g/dL Normal 29.9-35.2 [facility] Comment on above: Performed By: #### C BC #### [facility] [address] [place] [address] Dr. Ashlie Hills MCV (RBC) [Entitic vol] 87.3 fL Normal 81.0-99.0 [facility] Comment on above: Performed By: #### C BC #### [facility] [address] [place] [address] Dr. Ashlie Hills MONO # 0.8 103/ul Normal 0.3-0.8 [facility] Comment on above: Performed By: #### C BC #### [facility] [address] [place] [address] Dr. Ashlie Hills Monocytes/100 WBC (Bld) 5.7 % Normal 1.7-12.0 [facility] Comment on above: Performed By: #### C BC #### [facility] [address] [place] [address] Dr. Ashlie Hills NEUT # 7.8 103/ul Critically high 1.4-6.5 [facility] Comment on above: Performed By: #### C BC #### [facility] [address] [address] [address] Ashlie Hills Neutrophils/100 WBC (Bld) 57.5 % Normal 43.0-75.0 [facility] Comment on above: Performed By: #### C BC #### [facility] [address] [address] [address] Ashlie Hills Platelet mean volume (Bld) [Entitic vol] 12.0 fL Normal 9.5-13.5 [facility] Comment on above: Performed By: #### C BC #### [facility] [address] [address] [address] Ashlie Hills PLT 152 103/ul Normal 150-450 [facility] Comment on above: Performed By: #### C BC #### [facility] [address] [place] [address] Dr. Ashlie Hills RBC 6.00 106/ul Critically high 4.20-5.40 [facility] Comment on above: Performed By: #### C BC #### [facility] [address] [place] [address] Dr. Ashlie Hills WBC 13.6 103/ul Critically high 4.0-11.0 [facility] Comment on above: Performed By: #### C BC #### [facility] [address] [place] [address] Dr. Ashlie Hills LIPID PROFILEon 11-22-2022 CHOL-HDL RATIO NORM SEE BELOW Normal [facility] Comment on above: Result Comment: 3.3 - 4.4 LOW RISK 4.4 - 7.1 AVERAGE RISK 7.1 - 11.0 MODERATE RISK >11.0 HIGH RISK Performed By: #### C BC #### [facility] [address] [place] [address] Dr. Ashlie Hills Cholesterol [Mass/Vol] 139 mg/dL Normal <=200 [facility] Comment on above: Performed By: #### C BC #### [facility] [address] [place] [address] Dr. Ashlie Hills Cholesterol in HDL [Mass/Vol] 35 mg/dL Critically low 40-60 [facility] Comment on above: Performed By: #### C BC #### [facility] [address] [address] [address] Ashlie Hills Cholesterol in LDL [Mass/Vol] 67.4 mg/dL Normal [facility] Comment on above: Performed By: #### C BC #### [facility] [address] [address] [address] Ashlie Hills Cholesterol.total/Gianna sterol in HDL [Mass ratio] 4.0 {ratio} Normal [facility] Comment on above: Performed By: #### C BC #### [facility] [address] [place] [address] Dr. Ashlie Hills HDL NORMAL > or = 60 mg/dl - LOW CARDIOVASCULAR RISK <40 mg/dl - HIGH CARDIOVASCULAR RISK Normal [facility] Comment on above: Performed By: #### C BC #### [facility] [address] [place] [address] Dr. Ashlie Hills LDL CALC NORMAL SEE BELOW Normal [facility] Comment on above: Result Comment: <100 mg/dl OPTIMAL 100 - 129 mg/dl NEAR OR ABOVE OPTIMAL 130 - 159 mg/dl BORDERLINE HIGH 160 - 189 mg/dl HIGH >190 mg/dl VERY HIGH Performed By: #### C BC #### [facility] [address] [place] [address] Dr. Ashlie Hills Triglyceride [Mass/Vol] 183 mg/dL Critically high <=150 [facility] Comment on above: Performed By: #### C BC #### [facility] [address] [place] [address] Dr. Ashlie Hills VLDL CALC 36.6 mg/dL Normal [facility] Comment on above: Performed By: #### C BC #### [facility] [address] [place] [address] Dr. Ashlie Hills MG MAMM SCREEN 3D ALEX CADon 11-22-2022 MG MAMM SCREEN 3D ALEX CAD Patient: MITZI MACIAS Exam Date: 11/22/2022 : 1970 Gender:F Ordering : SAYDA [employer] Admission #: [id number] Family : Order #: [id number] CLICK HERE TO VIEW EXAM RADIOLOGY REPORT [...] Ovarian Cancer No Treatments None Family Cancers Grandmother-paterna l with ovarian cancer at age 80; Grandfather-paterna l with unknown cancer at age 75. LOCATION: [facility] BREAST COMPOSITION: Almost entirely fatty. [...] M.D. on 11/22/2022 at 12:09 Normal [facility] PROF 14(COMP METB)on 023 Albumin [Mass/Vol] 3.0 g/dL Critically low 3.4-5.0 [facility] Comment on above: Performed By: #### C BC #### [facility] [address] [place], [place] [address] Dr. Ashlie Hills Albumin/Globulin [Mass ratio] 0.6 {ratio} Normal [facility] Comment on above: Performed By: #### C BC #### [facility] [address] [place], [place] [address] Dr. Ashlie Hills ALP [Catalytic activity/Vol] 68 U/L Normal 46-116 [facility] Comment on above: Performed By: #### C BC #### [facility] [address] [address] [address] Ashlie Hills ALT [Catalytic activity/Vol] 14 U/L Normal 14-59 [facility] Comment on above: Performed By: #### C BC #### [facility] [address] [place] [address] Dr. Ashlie Hills Anion gap [Moles/Vol] 12.1 mmol/L Normal [facility] Comment on above: Performed By: #### C BC #### [facility] [address] [address] [address] Ashlie Hills AST [Catalytic activity/Vol] 9 U/L Critically low 15-37 [facility] Comment on above: Performed By: #### C BC #### [facility] [address] [place] [address] Dr. Ashlie Hills Bilirubin [Mass/Vol] 0.4 mg/dL Normal 0.2-1.0 [facility] Comment on above: Performed By: #### C BC #### [facility] [address] [place] [address] Dr. Ashlie Hills Calcium [Mass/Vol] 9.0 mg/dL Normal 8.5-10.1 [facility] Comment on above: Performed By: #### C BC #### [facility] [address] [place] [address] Dr. Ashlie Hills Chloride [Moles/Vol] 105 mmol/L Normal 98-107 [facility] Comment on above: Performed By: #### C BC #### [facility] [address] [place] [address] Dr. Ashlie Hills CO2 [Moles/Vol] 30.7 mmol/L Normal 21.0-32.0 [facility] Comment on above: Performed By: #### C BC #### [facility] [address] [place] [address] Dr. Ashlie Hills Creatinine [Mass/Vol] 0.77 mg/dL Normal 0.55-1.02 [facility] Comment on above: Performed By: #### C BC #### [facility] [address] [place] [address] Dr. Ashlie Hills EGFR-AF SIERRA LEONEAN >60 Normal >=60 [facility] Comment on above: Performed By: #### C BC #### [facility] [address] [address] [address] Ashlie Hills EGFR-NON AF SIERRA LEONEAN >60 Normal >=60 [facility] Comment on above: Performed By: #### C BC #### [facility] [address] [address] [address] Ashlie Hills Globulin (S) [Mass/Vol] 4.8 g/dL Normal [facility] Comment on above: Performed By: #### C BC #### [facility] [address] [address] [address] Ashlie Hills Glucose [Mass/Vol] 162 mg/dL Critically high 74-106 [facility] Comment on above: Performed By: #### C BC #### [facility] [address] [address] [address] Ashlie Hills Potassium [Moles/Vol] 3.8 mmol/L Normal 3.5-5.1 [facility] Comment on above: Performed By: #### C BC #### [facility] [address] [address] [address] Ashlie Hills Protein [Mass/Vol] 7.8 g/dL Normal 6.4-8.2 [facility] Comment on above: Performed By: #### C BC #### [facility] [address] [address] [address] Ashlie Hills Sodium [Moles/Vol] 144 mmol/L Normal 136-145 [facility] Comment on above: Performed By: #### C BC #### [facility] [address] [address] [address] Ashlie Hills Urea nitrogen [Mass/Vol] 24.0 mg/dL Critically high 7.0-18.0 [facility] Comment on above: Performed By: #### C BC #### [facility] [address] [address] [address] Ashlie Hills Urea nitrogen/Creatinine [Mass ratio] 31.2 mg/mg Normal [facility] Comment on above: Performed By: #### C BC #### [facility] [address] [place] [address] Dr. Ashlie Hills CBC AUTO DIFFon 10-05-2022 BASO # 0.1 103/ul Normal 0.0-0.1 [facility] Comment on above: Performed By: #### C BC #### [facility] [address] [place] [address] Dr. Ashlie Hills Basophils/100 WBC (Bld) 0.6 % Normal 0.2-2.0 [facility] Comment on above: Performed By: #### C BC #### [facility] [address] [place] [address] Dr. Ashlie Hills EO # 0.3 103/ul Normal 0.0-0.7 [facility] Comment on above: Performed By: #### C BC #### [facility] [address] [place] [address] Dr. Ashlie Hills Eosinophils/100 WBC (Bld) 2.1 % Normal 0.9-7.0 [facility] Comment on above: Performed By: #### C BC #### [facility] [address] [place] [address] Dr. Ashlie Hills Erythrocyte distribution width (RBC) [Ratio] 15.9 % Critically high 11.0-15.0 [facility] Comment on above: Performed By: #### C BC #### [facility] [address] [place] [address] Dr. Ashlie Hills Hematocrit (Bld) [Volume fraction] 51.8 % Critically high 36.0-48.0 [facility] Comment on above: Performed By: #### C BC #### [facility] [address] [place] [address] Dr. Ashlie Hills Hemoglobin (Bld) [Mass/Vol] 16.6 g/dL Critically high 12.0-16.0 [facility] Comment on above: Performed By: #### C BC #### [facility] [address] [place] [address] Dr. Ashlie Hills IG # 0.03 10e3/ul Normal 0.00-0.03 [facility] Comment on above: Performed By: #### C BC #### [facility] [address] [place] [address] Dr. Ashlie Hills IG % 0.2 % Normal 0.0-0.5 [facility] Comment on above: Performed By: #### C BC #### [facility] [address] [place] [address] Dr. Ashlie Hills LYMPH # 3.9 103/ul Critically high 1.2-3.8 [facility] Comment on above: Performed By: #### C BC #### [facility] [address] [place] [address] Dr. Ashlie Hills Lymphocytes/100 WBC (Bld) 31.7 % Normal 20.5-60.0 [facility] Comment on above: Performed By: #### C BC #### [facility] [facility] [address] [place] [address] Dr. Ashlie Hills MANUAL DIFF REQ NO Normal [facility] Comment on above: Performed By: #### C BC #### [facility] [address] [place] [address] Dr. Ashlie Hills MCH (RBC) [Entitic mass] 27.9 pg Normal 26.7-34.0 [facility] Comment on above: Performed By: #### C BC #### [facility] [address] [place] [address] Dr. Ashlie Hills MCHC (RBC) [Mass/Vol] 32.0 g/dL Normal 29.9-35.2 [facility] Comment on above: Performed By: #### C BC #### [facility] [address] [place] [address] Dr. Ashlie Hills MCV (RBC) [Entitic vol] 87.1 fL Normal 81.0-99.0 [facility] Comment on above: Performed By: #### C BC #### [facility] [address] [place] [address] Dr. Ashlie Hills MONO # 0.7 103/ul Normal 0.3-0.8 [facility] Comment on above: Performed By: #### C BC #### [facility] [address] [address] [address] Ashlie Hills Monocytes/100 WBC (Bld) 5.8 % Normal 1.7-12.0 [facility] Comment on above: Performed By: #### C BC #### [facility] [address] [address] [address] Ashlie Hills NEUT # 7.3 103/ul Critically high 1.4-6.5 [facility] Comment on above: Performed By: #### C BC #### [facility] [address] [address] [address] Ashlie Hills Neutrophils/100 WBC (Bld) 59.6 % Normal 43.0-75.0 [facility] Comment on above: Performed By: #### C BC #### [facility] [address] [place] [address] Dr. Ashlie Hills Platelet mean volume (Bld) [Entitic vol] 11.7 fL Normal 9.5-13.5 [facility] Comment on above: Performed By: #### C BC #### [facility] [address] [address] [address] Ashlie Hills PLT 117 103/ul Critically low 150-450 [facility] Comment on above: Performed By: #### C BC #### [facility] [address] [address] [address] Ashlie Hills RBC 5.95 106/ul Critically high 4.20-5.40 [facility] Comment on above: Performed By: #### C BC #### [facility] [address] [address] [address] Ashlie Hills WBC 12.3 103/ul Critically high 4.0-11.0 [facility] Comment on above: Performed By: #### C BC #### [facility] [address] [place] [address] ABD/PELV W CONon [...] by: RICCO PICKARD Date: 2022-10-05 13:13 Normal [facility] ER URINE PROFILEon 3 Bilirubin Ql (U) Negative Normal NEGATIVE [facility] Comment on above: Performed By: #### P OCGLUC #### [facility] [address] [place] [address] Dr. Ashlie Hills Clarity (U) CLEAR Normal CLEAR [facility] Comment on above: Performed By: #### P OCGLUC #### [facility] [address] [address] [address] Ashlie Hills Color (U) YELLOW Normal YELLOW [facility] Comment on above: Performed By: #### P OCGLUC #### [facility] [address] [address] [address] Ashlie HOBBS A micrscopic examination will be performed if indicated. Normal [facility] Comment on above: Performed By: #### P OCGLUC #### [facility] [address] [address] [address] Ashlie Hills Glucose Ql (U) Negative Normal NEGATIVE [facility] Comment on above: Performed By: #### P OCGLUC #### [facility] [address] [address] [address] Ashlie Hills Hemoglobin Ql (U) Negative Normal NEGATIVE [facility] Comment on above: Performed By: #### P OCGLUC #### [facility] [address] [address] [address] Ashlie Hills Ketones Ql (U) Negative Normal NEGATIVE [facility] Comment on above: Performed By: #### P OCGLUC #### [facility] [address] [address] [address] Ashlie Hills LEUKOCYTES Negative Normal NEGATIVE [facility] Comment on above: Performed By: #### P OCGLUC #### [facility] [address] [address] [address] Ashlie Hills Nitrite Ql (U) Negative Normal NEGATIVE [facility] Comment on above: Performed By: #### P OCGLUC #### [facility] [address] [address] [address] Ashlie Hills pH (U) 6.0 [pH] Normal 5-9 [facility] Comment on above: Performed By: #### P OCGLUC #### [facility] [address] [place] [address] Dr. Ashlie Hills Protein (U) [Mass/Vol] 100 mg/dL Abnormal NEGAT YURY/ TRACE [facility] Comment on above: Performed By: #### P OCGLUC #### [facility] [address] [place] [address] Dr. Ashlie Hills SPEC GRAVITY 1.010 Normal 1.005-<=1.025 [facility] Comment on above: Performed By: #### P OCGLUC #### [facility] [address] [place] [address] Dr. Ashlie Hills UR MICRO IND INDICATED Normal [facility] Comment on above: Performed By: #### P OCGLUC #### [facility] [address] [place] [address] Dr. Ashlie Hills Urobilinogen Qn (U) 1.0 {Little'U}/dL Normal 0.2 - 1. 0 [facility] Comment on above: Performed By: #### P OCGLUC #### [facility] [address] [place] [address] Dr. Ashlie Hills LIPASEon 10-05-2022 Lipase [Catalytic activity/Vol] 1771.0 U/L Critically high 73.0-393.0 [facility] Comment on above: Performed By: #### C BC #### [facility] [address] [place] [address] Dr. Ashlie Hills PREG HCG QUALon 10-05-2022 , QUAL Negative Normal NEGATIVE [facility] Comment on above: Performed By: #### P OCGLUC #### [facility] [address] [place] [address] Dr. Ashlie Hills PROF 14(COMP METB)on 023 Albumin [Mass/Vol] 3.2 g/dL Critically low 3.4-5.0 [facility] Comment on above: Performed By: #### C BC #### [facility] [address] [place] [address] Dr. Ashlie Hills Albumin/Globulin [Mass ratio] 0.7 {ratio} Normal [facility] Comment on above: Performed By: #### C BC #### [facility] [address] [place] [address] Dr. Ashlie Hills ALP [Catalytic activity/Vol] 70 U/L Normal 46-116 [facility] Comment on above: Performed By: #### C BC #### [facility] [address] [place] [address] Dr. Ashlie Hills ALT [Catalytic activity/Vol] 11 U/L Critically low 14-59 [facility] Comment on above: Performed By: #### C BC #### [facility] [address] [place] [address] Dr. Ashlie Hills Anion gap [Moles/Vol] 10.3 mmol/L Normal [facility] Comment on above: Performed By: #### C BC #### [facility] [address] [place] [address] Dr. Ashlie Hills AST [Catalytic activity/Vol] 11 U/L Critically low 15-37 [facility] Comment on above: Performed By: #### C BC #### [facility] [address] [place] [address] Dr. Ashlie Hills Bilirubin [Mass/Vol] 0.9 mg/dL Normal 0.2-1.0 [facility] Comment on above: Performed By: #### C BC #### [facility] [address] [address] [address] Ashlie Hills Calcium [Mass/Vol] 9.3 mg/dL Normal 8.5-10.1 [facility] Comment on above: Performed By: #### C BC #### [facility] [address] [place] [address] Dr. Ashlie Hills Chloride [Moles/Vol] 105 mmol/L Normal 98-107 [facility] Comment on above: Performed By: #### C BC #### [facility] [address] [place] [address] Dr. Ashlie Hills CO2 [Moles/Vol] 30.6 mmol/L Normal 21.0-32.0 [facility] Comment on above: Performed By: #### C BC #### [facility] [address] [place] [address] Dr. Ashlie Hills Creatinine [Mass/Vol] 0.62 mg/dL Normal 0.55-1.02 [facility] Comment on above: Performed By: #### C BC #### [facility] [address] [place] [address] Dr. Ashlie Hills EGFR-AF SIERRA LEONEAN >60 Normal >=60 [facility] Comment on above: Performed By: #### C BC #### [facility] [address] [place] [address] Dr. Ashlie Hills EGFR-NON AF SIERRA LEONEAN >60 Normal >=60 [facility] Comment on above: Performed By: #### C BC #### [facility] [address] [place] [address] Dr. Ashlie Hills Globulin (S) [Mass/Vol] 4.6 g/dL Normal [facility] Comment on above: Performed By: #### C BC #### [facility] [address] [address] [address] Ashlie Hills Glucose [Mass/Vol] 85 mg/dL Normal 74-106 [facility] Comment on above: Performed By: #### C BC #### [facility] [address] [address] [address] Ashlie Hilsl Potassium [Moles/Vol] 3.9 mmol/L Normal 3.5-5.1 [facility] Comment on above: Performed By: #### C BC #### [facility] [address] [address] [address] Ashlie Hills Protein [Mass/Vol] 7.8 g/dL Normal 6.4-8.2 [facility] Comment on above: Performed By: #### C BC #### [facility] [address] [place] [address] Dr. Ashlie Hills Sodium [Moles/Vol] 142 mmol/L Normal 136-145 [facility] Comment on above: Performed By: #### C BC #### [facility] [address] [place] [address] Dr. Ashlie Hills Urea nitrogen [Mass/Vol] 12.0 mg/dL Normal 7.0-18.0 [facility] Comment on above: Performed By: #### C BC #### [facility] [address] [place] [address] Dr. Ashlie Hills Urea nitrogen/Creatinine [Mass ratio] 19.4 mg/mg Normal [facility] Comment on above: Performed By: #### C BC #### [facility] [address] [address] [address] Ashlie Hills URINE MICROSCOPIC ONLYon BACTERIA TRACE Abnormal NONE SEEN [facility] Comment on above: Performed By: #### P OCGLUC #### [facility] [address] [address] [address] Ashlie Hills Bacteria identified Cx Nom (U) NOT INDICATED Normal [facility] Comment on above: Performed By: #### P OCGLUC #### [facility] [address] [place] [address] Dr. Ashlie Hills CAST NONE SEEN Normal NONE SEEN [facility] Comment on above: Performed By: #### P OCGLUC #### [facility] [address] [place] [address] Dr. Ashlie Hills Crystals LM Nom (Urine sed) NONE SEEN Normal NONE SEEN [facility] Comment on above: Performed By: #### P OCGLUC #### [facility] [address] [place] [address] Dr. Ashlie Hills Epithelial cells LM Ql (Urine sed) MODERATE Abnormal NONE SEEN /RARE [facility] Comment on above: Performed By: #### P OCGLUC #### [facility] [address] [place] [address] Dr. Ashlie Hills MUCOUS NONE SEEN Normal NONE SEEN [facility] Comment on above: Performed By: #### P OCGLUC #### [facility] [address] [place] [address] Dr. Ashlie Hills RBC 0-2 Normal 0-2 [facility] Comment on above: Performed By: #### P OCGLUC #### [facility] [address] [place] [address] Dr. Ashlie Hills WBC 0-2 Abnormal NONE SEEN [facility] Comment on above: Performed By: #### P OCGLUC #### [facility] [address] [place] [address] Dr. Ashlie Hills Covid-19 PCR ([facility]on 09-06 SARS-CoV-2 (COVID-19) RNA MADDY+probe Ql (Unsp spec) Detected Abnormal NOT DETECTED [facility] Comment on above: Result Comment: This test is not yet approved or cleared by the [place] FDA. When there are no FDA-approved or cleared tests available, and other criteria are met, FDA can make tests available under an emergency access mechanism called an Emergency Use Authorization (EUA). The EUA for this test is supported by the Order Processing Specialist of Health and Human Service's declaration [...] used). Performed By: #### C VDAGS #### [facility] [address] [place] [address] Dr. Ashlie Hills INFLUENZA A AND B AGon 09-21 [facility] SEE BELOW Normal [facility] Comment on above: Result Comment: Nega tive for Flu A protein angiten. Infection due to Flu A cannot be ruled out. Flu A angiten in the sample may be below the detection limit of the test. Performed By: #### I NFLUAB #### [facility] [address] [place] [address] Dr. Ashlie Hills [facility] Normal [facility] Comment on above: Result Comment: Nega tive for Flu B protein antigen. Infection due to Flu B cannot be ruled out. Flu B antigen in the sample may be below the detection limit of the test. Performed By: #### I NFLUAB #### [facility] [address] [place] [address] Dr. Ashlie Hills INFLUENZA A AG Negative Normal NEGATIVE SEE COMMENT [facility] Comment on above: Performed By: #### I NFLUAB #### [facility] [address] [place] [address] Dr. Ashlie Hills INFLUENZA B AG Negative Normal NEGATIVE SEE COMMENT [facility] Comment on above: Performed By: #### I NFLUAB #### [facility] [address] [place] [address] ABD/PELV W CONon 07-27-[address] ABD/PELV W CON INDICATION: Disorder of [...] formation of large articulating surface osteophytes and flattening/deformit y of the right femoral head, is unchanged. Grade 1 L4 on L5 anterolisthesis. IMPRESSION: 1. Slowly enlarging left adrenal gland angiomyolipoma. A repeat CT in approximately 2 years time should be adequate. 2. Nephrolithiasis, unchanged. 3. Severe right hip arthritis, unchanged. 4. Mildly enlarged left external iliac chain lymph node, dating back to at least 10/21/2018, unchanged. [email or web address].nih.gov/pmc/artic [email or web address] Electronically authenticated by: COLLIN HUERTAS Date: 2022-07-27 14:56 Normal [facility] CREATININEon 07-18-2022 Creatinine [Mass/Vol] 0.81 mg/dL Normal 0.55-1.02 [facility] Comment on above: Performed By: #### C BC #### [facility] [address] [place] [address] Dr. Ashlie Hills EGFR-AF SIERRA LEONEAN >60 Normal >=60 [facility] Comment on above: Performed By: #### C BC #### [facility] [address] [place] [address] Dr. Ashlie Hills EGFR-NON AF SIERRA LEONEAN >60 Normal >=60 [facility] Comment on above: Performed By: #### C BC #### [facility] [address] [place] [address] LOW EXT W [...] PATRICIA VELOZ Date: 2022-07-18 14:58 Normal [facility] XR KNEE LT 1_2 Von [...] HATTIE BAUTISTA Date: 2022-07-18 12:00 Normal [facility] Covid-19 PCR ([facility]on 06-09 SARS-CoV-2 (COVID-19) RNA MADDY+probe Ql (Unsp spec) Not detected Normal NOT DETECTED [facility] Comment on above: Result Comment: This test is not yet approved or cleared by the [place] FDA. When there are no FDA-approved or cleared tests available, and other criteria are met, FDA can make tests available under an emergency access mechanism called an Emergency Use Authorization (EUA). The EUA for this test is supported by the [place] of Health and Human Service's (HHS's) declaration [...] SARS-CoV-2. Performed By: #### C BC #### [facility] [address] [place] [address] Dr. Ashlie Hills INFLUENZA A AND B AGon 07-06 [facility] SEE BELOW Normal [facility] Comment on above: Result Comment: Nega tive for Flu A protein angiten. Infection due to Flu A cannot be ruled out. Flu A angiten in the sample may be below the detection limit of the test. Performed By: #### C BC #### [facility] [address] [place] [address] Dr. Ashlie Hills INFLUBNEGH SEE BELOW Normal [facility] Comment on above: Result Comment: Nega tive for Flu B protein antigen. Infection due to Flu B cannot be ruled out. Flu B antigen in the sample may be below the detection limit of the test. Performed By: #### C BC #### [facility] [address] [place] [address] Dr. Ashlie Hills INFLUENZA A AG Negative Normal NEGATIVE SEE COMMENT [facility] Comment on above: Performed By: #### C BC #### [facility] [address] [place] [address] Dr. Ashlie Hills INFLUENZA B AG Negative Normal NEGATIVE SEE COMMENT [facility] Comment on above: Performed By: #### C BC #### [facility] [address] [place] [address] Dr. Ashlie Hills POINT OF CARE GLUCOSEon 04-08 Glucose [Mass/Vol] 108 mg/dL Critically high 74-106 [facility] Comment on above: Performed By: #### C BC #### [facility] [address] [place] [address] Dr. Ashlie Hills RAGHU by IFAon 03-07-2022 Antinuclear Antibodies, IFA Negative Normal [facility] Comment on above: Result Comment: Nega tive <1:80 Borderline 1:80 Positive >1:80 ICAP nomenclature: AC-0 For more information about Hep-2 cell patterns use ANApatterns.org, the official website for the International Consensus on Antinuclear Antibody (RAGHU) Patterns (ICAP). Performed By: #### A NAIFA #### [facility] [address] [place] [address] Dr. Ashlie Hills IMMUNOFIXATION (TREVON), URINEo n 03-07-2022 TREVON Interpretation:U Comment Normal [facility] Comment on above: Result Comment: No m onoclonality detected. Performed By: #### C BC #### [facility] [address] [place] [address] Dr. Ashlie Hills IMMUNOFIXATION(TREVON),PROTEIN ELEC(PE),FREon 03-07-2022 Albumin [Mass/Vol] 3.0 g/dL Normal 2.9-4.4 [facility] Comment on above: Performed By: #### I NFLUAB #### [facility] [address] [address] [address] Ashlie Hills Albumin/Globulin [Mass ratio] 0.8 {ratio} Normal 0.7-1.7 [facility] Comment on above: Performed By: #### I NFLUAB #### [facility] [address] [place] [address] Dr. Ashlie Hills Paguc-8-Mpckleoh 0.3 g/dL Normal 0.0-0.4 [facility] Comment on above: Performed By: #### I NFLUAB #### [facility] [address] [address] [address] Ashlie Hills Evhus-3-Vkputffa 1.0 g/dL Normal 0.4-1.0 [facility] Comment on above: Performed By: #### I NFLUAB #### [facility] [address] [address] [address] Ashlie Hills Beta Globulin 1.8 g/dL Critically high 0.7-1.3 [facility] Comment on above: Performed By: #### I NFLUAB #### [facility] [address] [address] [address] Ashlie Hills Free Herriman Lt Chains,S 45.2 mg/L Critically high 3.3-19.4 [facility] Comment on above: Performed By: #### I NFLUAB #### [facility] [address] [address] [address] Ashile Hills Free Lambda Lt Chains,S 40.3 mg/L Critically high 5.7-26. 3 [facility] Comment on above: Performed By: #### I NFLUAB #### [facility] [address] [place] [address] Dr. Ashlie Hills Gamma Globulin 0.8 g/dL Normal 0.4-1.8 [facility] Comment on above: Performed By: #### I NFLUAB #### [facility] [address] [place] [address] Dr. Ashlie Hills Globulin (S) [Mass/Vol] 3.9 g/dL Normal 2.2-3.9 [facility] Comment on above: Performed By: #### I NFLUAB #### [facility] [address] [place] [address] Dr. Ashlie Hills Immunofixation Result, Serum Comment Normal [facility] Comment on above: Result Comment: No m onoclonality detected. Performed By: #### I NFLUAB #### [facility] [address] [place] [address] Dr. Ashlie Hills Immunoglobulin A, Qn, Serum 776 mg/dL Critically high 87-352 [facility] Comment on above: Performed By: #### I NFLUAB #### [facility] [address] [place] [address] Dr. Ashlie Hills Immunoglobulin G, Qn, Serum 955 mg/dL Normal 586-1602 [facility] Comment on above: Performed By: #### I NFLUAB #### [facility] [address] [place] [address] Dr. Ashlie Hills Immunoglobulin M, Qn, Serum 39 mg/dL Normal 26-217 [facility] Comment on above: Performed By: #### I NFLUAB #### [facility] [address] [place] [address] Dr. Ashlie Hills Herriman/Lambda Ratio, S 1.12 Normal 0.26-1.65 [facility] Comment on above: Performed By: #### I NFLUAB #### [facility] [address] [place] [address] Dr. Ashlie Hills M-Bright Not Observed Normal Not Observed [facility] Comment on above: Performed By: #### I NFLUAB #### [facility] [address] [place] [address] Dr. Ashlie Hills PDF . Normal [facility] Comment on above: Performed By: #### I NFLUAB #### [facility] [address] [place] [address] Dr. Ashlie Hills Please note: Comment Normal [facility] Comment on above: Result Comment: Prot ein electrophoresis scan will follow via computer, mail, or product manufacturing professional delivery. Performed By: #### I NFLUAB #### [facility] [address] [place] [address] Dr. Ashlie Hills Protein [Mass/Vol] 6.9 g/dL Normal 6.0-8.5 [facility] Comment on above: Performed By: #### I NFLUAB #### [facility] [address] [place] [address] Dr. Ashlie Hills C-PEPTIDE, SERUMon C-Peptide, Serum 3.1 ng/mL Normal 1.1-4.4 [facility] Comment on above: Result Comment: C-Pe ptide reference interval is for fasting patients. Performed By: #### C PEPT #### [facility] [address] [place] [address] Dr. Ashlie Hills HEP B SURFACE ANTIGEN SCREEN on 03-04-2022 HBsAg Screen Negative Normal Negative [facility] Comment on above: Performed By: #### C BC #### [facility] [address] [place] [address] Dr. Ashlie Hills HEPATITIS C VIRUS AB W/ REFL EX QUANTon 03-04-2022 HCV AB <0.1 Normal 0.0-0.9 [facility] Comment on above: Performed By: #### I NFLUAB #### [facility] [address] [place] [address] Dr. Ashlie Hills Interpretation: Comment Normal [facility] Comment on above: Result Comment: Nega tive Not infected with HCV, unless recent infection is suspected or other evidence exists to indicate HCV infection. Performed By: #### I NFLUAB #### [facility] [address] [address] [address] Ashlie Hills MICROALBUMIN/ CREATININE RAT IOon 03-04-2022 Albumin, Urine 367.4 ug/mL Normal Not Estab. The [place] Comment on above: Performed By: #### C BC #### [facility] [address] [address] [address] Ashlie Hills Albumin/ Creatinine Ratio 239 mg/g creat Critically high 0-29 [facility] Comment on above: Result Comment: Norm al: 0 - 29 Moderately increased: 30 - 300 Severely increased: >300 Performed By: #### C BC #### [facility] [address] [address] [address] Ashlie Hills Creatinine, Urine 153.9 mg/dL Normal Not Estab. The [facility] Comment on above: Performed By: #### C BC #### [facility] [address] [address] [address] Ashlie Hills VIT D 25-OH LABCORPon 2021 Vitamin D, 25-Hydroxy <4.0 Critically low 30.0-100.0 [facility] Comment on above: Result Comment: Graciela min D deficiency has been defined by the [place] of [employer] and an Endocrine Society practice guideline as a level of serum 25-OH vitamin D less than 20 ng/mL (1,2). The Endocrine Society went on to further define vitamin D insufficiency as a level between 21 and 29 ng/mL (2). 1. IOM ([place] of Medicine). 2010. Dietary reference intakes for calcium and D. [place]: The National Academies Press. 2. Lynda MF, Keely [place], Leandra LOPEZ, et al. Evaluation, treatment, and prevention of vitamin D deficiency: an Endocrine Society clinical practice guideline. JCEM. 2010; 96(7):1911-30. Performed By: #### C BC #### [facility] [address] [address] [address] Ashlie Hills GLYCOHEMOGLOBIN A1Con 2021 ADA RECOMMENDATION SEE BELOW Normal [facility] Comment on above: Result Comment: ADA RECOMMENDED LIMIT 4.0 - 6.0 ADA THERAPEUTIC TARGET < 7.0 ACTION SUGGESTED > 7.0 Performed By: #### C VDAGS #### [facility] [address] [place] [address] Dr. Ashlie Hills Glucose [Mass/Vol] 295 mg/dL Normal [facility] Comment on above: Performed By: #### C VDAGS #### [facility] [address] [place] [address] Dr. Ashlie Hills HbA1c (Bld) [Mass fraction] 11.9 % Critically high 4.5-6.2 [facility] Comment on above: Performed By: #### C VDAGS #### [facility] [address] [place] [address] Dr. Ashlie Hills HEMOGRAM AND PLATELon 2021 Hematocrit (Bld) [Volume fraction] 56.3 % Critically high 36.0-48.0 [facility] Comment on above: Performed By: #### C VDAGS #### [facility] [address] [place] [address] Dr. Ashlie Hills Hemoglobin (Bld) [Mass/Vol] 18.0 g/dL Critically high 12.0-16.0 [facility] Comment on above: Performed By: #### C VDAGS #### [facility] [address] [place] [address] Dr. Ashlie Hills MCH (RBC) [Entitic mass] 29.5 pg Normal 26.7-34.0 [facility] Comment on above: Performed By: #### C VDAGS #### [facility] [address] [place] [address] Dr. Ashlie Hills MCHC (RBC) [Mass/Vol] 32.0 g/dL Normal 29.9-35.2 [facility] Comment on above: Performed By: #### C VDAGS #### [facility] [address] [place] [address] Dr. Ashlie Hills MCV (RBC) [Entitic vol] 92.1 fL Normal 81.0-99.0 [facility] Comment on above: Performed By: #### C VDAGS #### [facility] [address] [address] [address] Ashlie Hills PLT 123 103/ul Critically low 150-450 [facility] Comment on above: Performed By: #### C VDAGS #### [facility] [address] [address] [address] Ashlie Hills RBC 6.11 106/ul Critically high 4.20-5.40 [facility] Comment on above: Performed By: #### C VDAGS #### [facility] [address] [place] [address] Dr. Ashlie Hills WBC 16.4 103/ul Critically high 4.0-11.0 [facility] Comment on above: Performed By: #### C VDAGS #### [facility] [address] [place] [address] Dr. Ashlie Hills LIPID PROFILEon 03-03-2022 CHOL-HDL RATIO NORM SEE BELOW Normal [facility] Comment on above: Result Comment: 3.3 - 4.4 LOW RISK 4.4 - 7.1 AVERAGE RISK 7.1 - 11.0 MODERATE RISK >11.0 HIGH RISK Performed By: #### C VDAGS #### [facility] [address] [place] [address] Dr. Ashlie Hills Cholesterol [Mass/Vol] 159 mg/dL Normal <=200 [facility] Comment on above: Performed By: #### C VDAGS #### [facility] [address] [place] [address] Dr. Ashlie Hills Cholesterol in HDL [Mass/Vol] 40 mg/dL Normal 40-60 [facility] Comment on above: Performed By: #### C VDAGS #### [facility] [address] [place] [address] Dr. Ashlie Hills Cholesterol in LDL [Mass/Vol] 81.8 mg/dL Normal [facility] Comment on above: Performed By: #### C VDAGS #### [facility] [address] [place] [address] Dr. Ashlie Hills Cholesterol.total/Gianna sterol in HDL [Mass ratio] 4.0 {ratio} Normal [facility] Comment on above: Performed By: #### C VDAGS #### [facility] [address] [address] [address] Ashlie Hills HDL NORMAL > or = 60 mg/dl - LOW CARDIOVASCULAR RISK <40 mg/dl - HIGH CARDIOVASCULAR RISK Normal [facility] Comment on above: Performed By: #### C VDAGS #### [facility] [address] [address] [address] Ashlie Hills LDL CALC NORMAL SEE BELOW Normal [facility] Comment on above: Result Comment: <100 mg/dl OPTIMAL 100 - 129 mg/dl NEAR OR ABOVE OPTIMAL 130 - 159 mg/dl BORDERLINE HIGH 160 - 189 mg/dl HIGH >190 mg/dl VERY HIGH Performed By: #### C VDAGS #### [facility] [address] [place] [address] Dr. Ashlie Hills Triglyceride [Mass/Vol] 186 mg/dL Critically high <=150 [facility] Comment on above: Performed By: #### C VDAGS #### [facility] [address] [address] [address] Ashlie Hills VLDL CALC 37.2 mg/dL Normal [facility] Comment on above: Performed By: #### C VDAGS #### [facility] [address] [place] [address] Dr. Ashlie Hills RENAL FUNCTION PANELon 03-03 Albumin [Mass/Vol] 3.1 g/dL Critically low 3.4-5.0 [facility] Comment on above: Performed By: #### C BC #### [facility] [address] [place] [address] Dr. Ashlie Hills Calcium [Mass/Vol] 9.2 mg/dL Normal 8.5-10.1 [facility] Comment on above: Performed By: #### C BC #### [facility] [address] [address] [address] Ashlie Hills Chloride [Moles/Vol] 102 mmol/L Normal 98-107 [facility] Comment on above: Performed By: #### C BC #### [facility] [address] [address] [address] Ashlie Hills CO2 [Moles/Vol] 31.9 mmol/L Normal 21.0-32.0 [facility] Comment on above: Performed By: #### C BC #### [facility] [address] [address] [address] Ashlie Hills Creatinine [Mass/Vol] 0.68 mg/dL Normal 0.55-1.02 [facility] Comment on above: Performed By: #### C BC #### [facility] [address] [place] [address] Dr. Ashlie Hills EGFR-AF SIERRA LEONEAN >60 Normal >=60 [facility] Comment on above: Performed By: #### C BC #### [facility] [address] [place] [address] Dr. Ashlie Hills EGFR-NON AF SIERRA LEONEAN >60 Normal >=60 [facility] Comment on above: Performed By: #### C BC #### [facility] [address] [place] [address] Dr. Ashlie Hills Glucose [Mass/Vol] 131 mg/dL Critically high 74-106 [facility] Comment on above: Performed By: #### C BC #### [facility] [address] [place] [address] Dr. Ashlie Hills Phosphate [Mass/Vol] 4.0 mg/dL Normal 2.6-4.7 [facility] Comment on above: Performed By: #### C BC #### [facility] [address] [place] [address] Dr. Ashlie Hills Potassium [Moles/Vol] 4.0 mmol/L Normal 3.5-5.1 [facility] Comment on above: Performed By: #### C BC #### [facility] [address] [place] [address] Dr. Ashlie Hills Sodium [Moles/Vol] 141 mmol/L Normal 136-145 [facility] Comment on above: Performed By: #### C BC #### [facility] [address] [place] [address] Dr. Ashlie Hills Urea nitrogen [Mass/Vol] 17.0 mg/dL Normal 7.0-18.0 [facility] Comment on above: Performed By: #### C BC #### [facility] [address] [place] [address] Dr. Ashlie Hills UA RANDOM W/MICROSCOPICon BACTERIA NONE SEEN Normal NONE SEEN [facility] Comment on above: Performed By: #### I NFLUAB #### [facility] [address] [place] [address] Dr. Ashlie Hills Bilirubin Ql (U) Negative Normal NEGATIVE [facility] Comment on above: Performed By: #### I NFLUAB #### [facility] [address] [place] [address] Dr. Ahslie Hills CAST NONE SEEN Normal NONE SEEN [facility] Comment on above: Performed By: #### I NFLUAB #### [facility] [address] [place] [address] Dr. Ashlie Hills Clarity (U) CLEAR Normal CLEAR [facility] Comment on above: Performed By: #### I NFLUAB #### [facility] [address] [place] [address] Dr. Ashlie Hills Color (U) YELLOW Normal YELLOW [facility] Comment on above: Performed By: #### I NFLUAB #### [facility] [address] [place] [address] Dr. Ashlie Hills Crystals LM Nom (Urine sed) NONE SEEN Normal NONE SEEN [facility] Comment on above: Performed By: #### I NFLUAB #### [facility] [address] [place] [address] Dr. Ashlie Hills Epithelial cells LM Ql (Urine sed) FEW Abnormal NONE SEEN /RARE [facility] Comment on above: Performed By: #### I NFLUAB #### [facility] [address] [place] [address] Dr. Ashlie Hills Glucose Ql (U) Negative Normal NEGATIVE [facility] Comment on above: Performed By: #### I NFLUAB #### [facility] [address] [address] [address] Ashlie Hills Hemoglobin Ql (U) Negative Normal NEGATIVE The [facility] Comment on above: Performed By: #### I NFLUAB #### [facility] [address] [place] [address] Dr. Ashlie Hills Ketones Ql (U) Negative Normal NEGATIVE [facility] Comment on above: Performed By: #### I NFLUAB #### [facility] [address] [place] [address] Dr. Ashlie Hills LEUKOCYTES Negative Normal NEGATIVE [facility] Comment on above: Performed By: #### I NFLUAB #### [facility] [address] [place] [address] Dr. Ashlie Hills MUCOUS NONE SEEN Normal NONE SEEN [facility] Comment on above: Performed By: #### I NFLUAB #### [facility] [address] [place] [address] Dr. Ashlie Hills Nitrite Ql (U) Negative Normal NEGATIVE [facility] Comment on above: Performed By: #### I NFLUAB #### [facility] [address] [place] [address] Dr. Ashlie Hills pH (U) 5.5 [pH] Normal 5-9 [facility] Comment on above: Performed By: #### I NFLUAB #### [facility] [address] [place] [address] Dr. Ashlie Hills RBC 0-2 Normal 0-2 [facility] Comment on above: Performed By: #### I NFLUAB #### [facility] [address] [place] [address] Dr. Ashlie Hills SPEC GRAVITY >=1.030 Abnormal 1.005-<=1.025 [facility] [place] Comment on above: Performed By: #### I NFLUAB #### [facility] [address] [place] [address] Dr. Ashlie Hills UA PROTEIN 100 mg/dl Abnormal NEGATIVE/ TRACE [facility] Comment on above: Performed By: #### I NFLUAB #### [facility] [address] [place] [address] Dr. Ashlie Hills Urobilinogen Qn (U) 0.2 {Little'U}/dL Normal 0.2 - 1. 0 [facility] Comment on above: Performed By: #### I NFLUAB #### [facility] [address] [place] [address] Dr. Ashlie Hills WBC NONE SEEN Normal NONE SEEN [facility] Comment on above: Performed By: #### I NFLUAB #### [facility] [address] [address] [address] Ashlie Hills URIC ACID SERUMon 03-03-2022 Urate [Mass/Vol] 5.0 mg/dL Normal 2.6-6.0 [facility] Comment on above: Performed By: #### I NFLUAB #### [facility] [address] [place] [address] Dr. Ashlie Hills URINE T PROTEIN CREAT RATIOo n 03-03-2022 Protein (U) [Mass/Vol] 77.9 mg/dL Critically high <=12.0 [facility] Comment on above: Performed By: #### C VDAGS #### [facility] [address] [address] [address] Ashlie Hills UR PROT CREAT RAT 0.44 Normal [facility] Comment on above: Performed By: #### C VDAGS #### [facility] [address] [place] [address] Dr. Ashlie Hills URINE CREAT 175.15 mg/dL Normal 20.00-300.00 [facility] [place] Comment on above: Performed By: #### C VDAGS #### [facility] [address] [address] [address] Ashlie Hills CULTURE URINEon 12-25-2021 CULTURE URINE Culture Observations: GREATER THAN TWO ORGANISMS PRESENT, HEAVILY MIXED. PLEASE RESUBMIT CLEAN CATCH MID-STREAM URINE IF CLINICALLY INDICATED. Normal [facility] Comment on above: Performed By: #### I NFLUAB #### [facility] [address] [place] [address] Dr. Ashlie Hills CBC AUTO DIFFon 12-24-2021 BASO # 0.1 103/ul Normal 0.0-0.1 [facility] Comment on above: Performed By: #### C BC #### [facility] [address] [place] [address] Dr. Ashlie Hills Basophils/100 WBC (Bld) 0.5 % Normal 0.2-2.0 [facility] Comment on above: Performed By: #### C BC #### [facility] [address] [place] [address] Dr. Ashlie Hills EO # 0.4 103/ul Normal 0.0-0.7 [facility] Comment on above: Performed By: #### C BC #### [facility] [address] [place] [address] Dr. Ashlie Hills Eosinophils/100 WBC (Bld) 2.4 % Normal 0.9-7.0 [facility] Comment on above: Performed By: #### C BC #### [facility] [address] [place] [address] Dr. Ashlie Hills Erythrocyte distribution width (RBC) [Ratio] 14.1 % Normal 11.0-15.0 [facility] Comment on above: Performed By: #### C BC #### [facility] [address] [place] [address] Dr. Ashlie Hills Hematocrit (Bld) [Volume fraction] 55.9 % Critically high 36.0-48.0 [facility] Comment on above: Performed By: #### C BC #### [facility] [address] [place] [address] Dr. Ashlie Hills Hemoglobin (Bld) [Mass/Vol] 17.9 g/dL Critically high 12.0-16.0 [facility] Comment on above: Performed By: #### C BC #### [facility] [address] [place] [address] Dr. Ashlie Hills IG # 0.06 10e3/ul Critically high 0.00-0.03 [facility] Comment on above: Performed By: #### C BC #### [facility] [address] [place] [address] Dr. Ashlie Hills IG % 0.4 % Normal 0.0-0.5 [facility] Comment on above: Performed By: #### C BC #### [facility] [address] [place] [address] Dr. Ashlie Hills LYMPH # 5.8 103/ul Critically high 1.2-3.8 [facility] Comment on above: Performed By: #### C BC #### [facility] [address] [place] [address] Dr. Ashlie Hills Lymphocytes/100 WBC (Bld) 35.4 % Normal 20.5-60.0 [facility] Comment on above: Performed By: #### C BC #### [facility] [address] [place] [address] Dr. Ashlie Hills MANUAL DIFF REQ NO Normal [facility] Comment on above: Performed By: #### C BC #### [facility] [address] [place] [address] Dr. Ashlie Hills MCH (RBC) [Entitic mass] 29.4 pg Normal 26.7-34.0 [facility] Comment on above: Performed By: #### C BC #### [facility] [address] [place] [address] Dr. Ashlie Hills MCHC (RBC) [Mass/Vol] 32.0 g/dL Normal 29.9-35.2 [facility] Comment on above: Performed By: #### C BC #### [facility] [address] [place] [address] Dr. Ashlie Hills MCV (RBC) [Entitic vol] 91.8 fL Normal 81.0-99.0 [facility] Comment on above: Performed By: #### C BC #### [facility] [address] [place] [address] Dr. Ashlie Hills MONO # 0.8 103/ul Normal 0.3-0.8 [facility] Comment on above: Performed By: #### C BC #### [facility] [address] [place] [address] Dr. Ashlie Hills Monocytes/100 WBC (Bld) 4.8 % Normal 1.7-12.0 [facility] Comment on above: Performed By: #### C BC #### [facility] [address] [address] [address] Ashlie Hills NEUT # 9.3 103/ul Critically high 1.4-6.5 [facility] Comment on above: Performed By: #### C BC #### [facility] [address] [address] [address] Ashlie Hills Neutrophils/100 WBC (Bld) 56.5 % Normal 43.0-75.0 [facility] Comment on above: Performed By: #### C BC #### [facility] [address] [address] [address] Ashlie Hills Platelet mean volume (Bld) [Entitic vol] 12.9 fL Normal 9.5-13.5 [facility] Comment on above: Performed By: #### C BC #### [facility] [address] [place] [address] Dr. Ashlie Hills PLT 127 103/ul Critically low 150-450 [facility] Comment on above: Performed By: #### C BC #### [facility] [address] [address] [address] Ashlie Hills RBC 6.09 106/ul Critically high 4.20-5.40 [facility] Comment on above: Performed By: #### C BC #### [facility] [address] [place] [address] Dr. Ashlie Hills WBC 16.4 103/ul Critically high 4.0-11.0 [facility] Comment on above: Performed By: #### C BC #### [facility] [address] [place] [address] ABD/PELVIS WO CONon [...] Severe right hip degenerative change. Normal [facility] ER URINE PROFILEon 2 Bilirubin Ql (U) Negative Normal NEGATIVE [facility] Comment on above: Performed By: #### E RUR, UMICRO #### [facility] [address] [place] [address] Dr. Ashlie Hills Clarity (U) CLEAR Normal CLEAR [facility] Comment on above: Performed By: #### E RUR, UMICRO #### [facility] [address] [place] [address] Dr. Ashlie Hills Color (U) DK. ORANGE Abnormal YELLOW [facility] Comment on above: Performed By: #### E RUR, UMICRO #### [facility] [address] [place] [address] Dr. Ashlie HOBBS A micrscopic examination will be performed if indicated. Normal [facility] Comment on above: Performed By: #### E RUR, UMICRO #### [facility] [address] [place] [address] Dr. Ashlie Hills Glucose Ql (U) 250 mg/dl Abnormal NEGATIVE [facility] Comment on above: Performed By: #### E RUR, UMICRO #### [facility] [address] [place] [address] Dr. Ashlie Hills Hemoglobin Ql (U) Negative Normal NEGATIVE [facility] Comment on above: Performed By: #### E RUR, UMICRO #### [facility] [address] [place] [address] Dr. Ashlie Hills Ketones Ql (U) Negative Normal NEGATIVE [facility] Comment on above: Performed By: #### E RUR, UMICRO #### [facility] [address] [place] [address] Dr. Ashlie Hills LEUKOCYTES Negative Normal NEGATIVE [facility] Comment on above: Performed By: #### E RUR, UMICRO #### [facility] [address] [place] [address] Dr. Ashlie Hills Nitrite Ql (U) Negative Normal NEGATIVE [facility] Comment on above: Performed By: #### E RUR, UMICRO #### [facility] [address] [place] [address] Dr. Ashlie Hills pH (U) 5.0 [pH] Normal 5-9 [facility] Comment on above: Performed By: #### MADELINE DIAZRO #### [facility] [address] [place] [address] Dr. Ashlie Hills Protein (U) [Mass/Vol] 100 mg/dL Abnormal NEGAT YURY/ TRACE [facility] Comment on above: Performed By: #### Tracey LYMAN, UMICRO #### [facility] [address] [place] [address] Dr. Ashlie Hills SPEC GRAVITY >=1.030 Abnormal 1.005-<=1.025 [facility] Comment on above: Performed By: #### Tracey LYMAN, MADELINERO #### [facility] [address] [place] [address] Dr. Ashlie Hills UR MICRO IND INDICATED Normal [facility] Comment on above: Performed By: #### Tracey LYMAN UMHARRIETRO #### [facility] [address] [place] [address] Dr. Ashlie Hills Urobilinogen Qn (U) 1.0 {Little'U}/dL Normal 0.2 - 1. 0 [facility] Comment on above: Performed By: #### Tracey LYMAN, MADELINERO #### [facility] [address] [place] [address] Dr. Ashlie Hills PROF CHEM 8 (BAS METB)on Anion gap [Moles/Vol] 12.1 mmol/L Normal [facility] Comment on above: Performed By: #### I NFLUAB #### [facility] [address] [place] [address] Dr. Ashlie Hills Calcium [Mass/Vol] 9.0 mg/dL Normal 8.5-10.1 [facility] Comment on above: Performed By: #### I NFLUAB #### [facility] [address] [place] [address] Dr. Ashlie Hills Chloride [Moles/Vol] 101 mmol/L Normal 98-107 [facility] Comment on above: Performed By: #### I NFLUAB #### [facility] [address] [address] [address] Ashlie Hills CO2 [Moles/Vol] 29.1 mmol/L Normal 21.0-32.0 [facility] Comment on above: Performed By: #### I NFLUAB #### [facility] [address] [address] [address] Ashlie Hills Creatinine [Mass/Vol] 0.86 mg/dL Normal 0.55-1.02 [facility] Comment on above: Performed By: #### I NFLUAB #### [facility] [address] [place] [address] Dr. Ashlie Hills EGFR-AF SIERRA LEONEAN >60 Normal >=60 [facility] Comment on above: Performed By: #### I NFLUAB #### [facility] [address] [address] [address] Ashlie Hills EGFR-NON AF SIERRA LEONEAN >60 Normal >=60 [facility] Comment on above: Performed By: #### I NFLUAB #### [facility] [address] [address] [address] Ashlie Hills Glucose [Mass/Vol] 236 mg/dL Critically high 74-106 [facility] Comment on above: Performed By: #### I NFLUAB #### [facility] [address] [address] [address] Ashlie Hills Potassium [Moles/Vol] 4.2 mmol/L Normal 3.5-5.1 [facility] Comment on above: Performed By: #### I NFLUAB #### [facility] [address] [address] [address] Ashlie Hills Sodium [Moles/Vol] 138 mmol/L Normal 136-145 [facility] Comment on above: Performed By: #### I NFLUAB #### [facility] [address] [address] [address] Ashlie Hills Urea nitrogen [Mass/Vol] 11.0 mg/dL Normal 7.0-18.0 [facility] Comment on above: Performed By: #### I NFLUAB #### [facility] [address] [place] [address] Dr. Ashlie Hills Urea nitrogen/Creatinine [Mass ratio] 12.8 mg/mg Normal [facility] Comment on above: Performed By: #### I NFLUAB #### [facility] [address] [place] [address] Dr. Ashlie Hills URINE MICROSCOPIC ONLYon BACTERIA SMALL Abnormal NONE SEEN [facility] Comment on above: Performed By: #### E RUR, UMICRO #### [facility] [address] [place] [address] Dr. Ashlie Hills Bacteria identified Cx Nom (U) INDICATED Normal [facility] Comment on above: Performed By: #### E RUR, UMICRO #### [facility] [address] [place] [address] Dr. Ashlie Hills CAST NONE SEEN Normal NONE SEEN [facility] Comment on above: Performed By: #### E RUR, UMICRO #### [facility] [address] [place] [address] Dr. Ashlie Hills Crystals LM Nom (Urine sed) NONE SEEN Normal NONE SEEN [facility] Comment on above: Performed By: #### E RUR, UMICRO #### [facility] [address] [place] [address] Dr. Ashlie Hills Epithelial cells LM Ql (Urine sed) MODERATE Abnormal NONE SEEN /RARE [facility] Comment on above: Performed By: #### E RUR, UMICRO #### [facility] [address] [place] [address] Dr. Ashlie Hills MUCOUS NONE SEEN Normal NONE SEEN [facility] Comment on above: Performed By: #### E RUR, UMICRO #### [facility] [address] [place] [address] Dr. Ashlie Hills RBC 0-2 Normal 0-2 [facility] Comment on above: Performed By: #### E NURA, UMICRO #### [facility] [address] [place] [address] Dr. Ashlie Hills WBC 0-2 Abnormal NONE SEEN [facility] Comment on above: Performed By: #### E EVONNE LYMAN #### [facility] [address] [address] [address] Ashlie Hills YEAST PRESENT Abnormal NONE SEEN [facility] Comment on above: Performed By: #### E EVONNE LYMAN #### [facility] [address] [address] [address] Ashlie Hills HIP RIGHT 1 OR 2 VWS WITH PE LVISon 07-20-2020 HIP RIGHT 1 OR 2 VWS WITH PELVIS [facility] Department of Radiology [address] [place] [address] Patient Name: MIZTI MACIAS : 1970 Sex: F Age: Race: [...] hip arthritis with unremarkable articulation and subchondral sclerosis/osteophyt e formation with femoral head flattening. 2. Within limits of osteopenia no acute fracture. No malalignment. If there is concern for occult fracture, consider further evaluation with MRI. Electronically signed: Pipo Acevedo. Transcribed by: [email or web address], User Resident: Electronically Signed by: PIPO ACEVEDO @ 07/20/2020 03:45 PM Normal [facility] Comment on above: Order Comment: evalu ate Vital Signs Date Time Vital Sign Value Performing Clinician Facility 06-19-2024 11:26-0500 Body height 170 cm Jonathan Hudson MD Work Phone: [facility] 06-19-2024 11:26-0500 Body mass index (BMI) [Ratio] 58.7 kg/m2 Jonathan Hudson MD Work Phone: [facility] 06-19-2024 11:26-0500 Body temperature 98.01 [degF] Jonathan Hudson MD Work Phone: [facility] 06-19-2024 11:26-0500 Body weight 169.65 kg Jonathan Hudson MD Work Phone: [facility] 06-19-2024 11:26-0500 Diastolic blood pressure 70 mm[Hg] Jonathan Hudson MD Work Phone: [facility] 06-19-2024 11:26-0500 Heart rate 78 /min Jonathan Hudson MD Work Phone: [facility] 06-19-2024 11:26-0500 Respiratory rate 20 /min Jonathan Hudson MD Work Phone: [facility] 06-19-2024 11:26-0500 Systolic blood pressure 160 mm[Hg] Jonathan Hudson MD Work Phone: [facility] 06-11-2024 10:00-0500 Blood Pressure Location Elbert ARAUZ [facility] 06-11-2024 10:00-0500 Diastolic blood pressure 68 mm[Hg] Elbert ARAUZ [facility] 06-11-2024 10:00-0500 Heart rate 76 /min Elbert ARAUZ [facility] 06-11-2024 10:00-0500 Systolic blood pressure 132 mm[Hg] Elbert ARAUZ [facility] 05-27-2024 10:20-0500 Body height 170.2 cm Rain Souza MD Work Phone: [facility] 05-27-2024 10:20-0500 Body mass index (BMI) [Ratio] 56.7 kg/m2 Rain Souza MD Work Phone: [facility] 05-27-2024 10:20-0500 Body weight 164.2 kg Rain Souza MD Work Phone: [facility] 05-27-2024 10:20-0500 Diastolic blood pressure 66 mm[Hg] Rain Souza MD Work Phone: [facility] 05-27-2024 10:20-0500 Heart rate 72 /min Rain Souza MD Work Phone: [facility] 05-27-2024 10:20-0500 Respiratory rate 16 /min Rain Souza MD Work Phone: [facility] 05-27-2024 10:20-0500 Systolic blood pressure 128 mm[Hg] Rain Souza MD Work Phone: [facility] 04-14-2024 10:27-0400 Body height 165.1 cm Mckayla Blas [employer]CRAFT [employer] INSTALLER Work Phone: [facility] 04-14-2024 10:27-0400 Body mass index (BMI) [Ratio] 61.01 kg/m2 Mckayla Blas [employer] INSTALLER Work Phone: [facility] 04-14-2024 10:27-0400 Body temperature 98.49 [degF] Mckayla Blas [employer] INSTALLER Work Phone: [facility] 04-14-2024 10:27-0400 Body weight 166.29 kg Mckayla Blas [employer]CRA[employer] INSTALLER Work Phone: [facility] 04-14-2024 10:27-0400 Diastolic blood pressure 80 mm[Hg] Mckayla Blas [employer] INSTALLER Work Phone: [facility] 04-14-2024 10:27-0400 Heart rate 77 /min Mckayla Blas [employer] INSTALLER Work Phone: [facility] 04-14-2024 10:27-0400 Respiratory rate 19 /min Mckayla Blas [employer] INSTALLER Work Phone: [facility] 04-14-2024 10:27-0400 SaO2% (BldA) [Mass fraction] 92 % Mckayla Blas [employer] INSTALLER Work Phone: [facility] 04-14-2024 10:27-0400 Systolic blood pressure 116 mm[Hg] Mckayla Blas [employer] INSTALLER Work Phone: [facility] 03-08-2022 15:00-0400 Body height 170.18 cm Stephanie Tico Other [facility] Other 03-08-2022 15:00-0400 Body temperature 97.6 [degF] Stephanie Tico Other [facility] Other 03-08-2022 15:00-0400 Diastolic blood pressure 72 mm[Hg] Stephanie Tico Other [facility] Other 03-08-2022 15:00-0400 Respiratory rate 20 /min Stephanie Tico Other [facility] Other 03-08-2022 15:00-0400 SaO2% (BldA) [Mass fraction] 91 % Stephanie Tico Other [facility] Other 03-08-2022 15:00-0400 Systolic blood pressure 131 mm[Hg] Stephanie Tico Other [facility] Other 02-20-2022 09:20-0400 Body height 170.18 cm Stephanie Tico Other [facility] Other 02-20-2022 09:20-0400 Body temperature 96.5 [degF] Stephanie Tico Other [facility] Other 02-20-2022 09:20-0400 Diastolic blood pressure 69 mm[Hg] Stephanie Tico Other [facility] Other 02-20-2022 09:20-0400 Respiratory rate 20 /min Stephanie Tico Other [facility] Other 02-20-2022 09:20-0400 SaO2% (BldA) [Mass fraction] 91 % Stephanie Tico Other [facility] Other 02-20-2022 09:20-0400 Systolic blood pressure 129 mm[Hg] Stephanie Tico Other [facility] Other 02-06-2022 10:24-0400 Blood Pressure Location Elbert ARAUZ [facility] 02-06-2022 10:24-0400 Diastolic blood pressure 76 mm[Hg] Elbert ARAUZ [facility] 02-06-2022 10:24-0400 Heart rate 70 /min Elbert ARAUZ [facility] 02-06-2022 10:24-0400 Respiratory rate 16 /min Elbert ARAUZ [facility] 02-06-2022 10:24-0400 Systolic blood pressure 134 mm[Hg] Elbert ARAUZ [facility] Encounters Encounter Date Encounter Type Care Provider Facility Start: 08-08-2024 End: 08-08-2024 ambulatory [facility] Start: 07-17-2024 End: 07-17-2024 Refill Mckayla Blas [employer]STALLER Work Phone: [facility] Start: 07-14-2024 End: 07-14-2024 Office outpatient visit 25 minutes Mckayla Blas [employer] INSTALLER Work Phone: [facility] Comment on above: Primary hypertension (CMS/HCC) (Primary Dx); Diabetic polyneuropathy associated with type 2 diabetes mellitus (CMS/HCC); Pulmonary emphysema, unspecified emphysema type (CMS/HCC); Critical limb ischemia of right lower extremity (CMS/HCC); PAD (peripheral artery disease) (CMS/HCC); Gastroesophageal reflux disease, unspecified whether esophagitis present; Bilateral lower extremity edema; Venous ulcer of right leg (CMS/HCC); Type 2 diabetes mellitus with complication, with long-term current use of insulin (CMS/HCC); Tobacco user; Encounter for smoking cessation counseling; Kidney stone; Adrenal mass 1 cm to 4 cm in diameter (CMS/HCC); Radiculopathy, lumbar region; Non-seasonal allergic rhinitis, unspecified trigger; Type 2 diabetes mellitus with unspecified complications (CMS/HCC) Start: 07-14-2024 End: 07-14-2024 ambulatory MCKAYLA ROBERTOHOLZ Not Available Start: 07-05-2024 End: 07-07-2024 Refill Mckayla Blas NP Work Phone: [facility] Comment on above: Bilateral lower extr emity edema Start: 06-19-2024 End: 06-19-2024 Office outpatient new 45 minutes Jonathan Hudson MD Work Phone: [facility] Comment on above: BMI 50.0-59.9, adult (CMS-HCC) (Primary Dx); Morbid obesity (CMS-HCC); Smoking Start: 06-13-2024 End: 06-13-2024 Telephone encounter Jonathan Hudson MD Work Phone: [facility] Start: 06-11-2024 ambulatory Elbert ARAUZ Facili ty:[facility] Start: 06-11-2024 End: 06-11-2024 Patient encounter procedure Elbert ARAUZ [facility] [place] Start: 05-27-2024 End: 05-27-2024 Bamboo flowsheet Rain Souza MD Work Phone: [facility] Start: 05-27-2024 End: 05-27-2024 Bamboo flowsheet Rain Souza MD Work Phone: [facility] Start: 05-27-2024 End: 05-27-2024 ambulatory RAIN SOUZA Not Available Start: 05-27-2024 End: 05-27-2024 Office outpatient visit 25 minutes Rain Souza MD Work Phone: [facility] Comment on above: Type 2 diabetes asiya itus with hyperglycemia, with long-term current use of insulin (CMS/HCC) (Primary Dx); Encounter for dietary consultation; Vitamin D deficiency; Primary hypertension (CMS/HCC); Insulin long-term use (CMS/HCC); Hyperlipemia, mixed (CMS/HCC); Microalbuminuria; Class 3 severe obesity due to excess calories with serious comorbidity and body mass index (BMI) of 50.0 to 59.9 in adult (CMS/HCC) Start: 05-12-2024 End: 05-12-2024 Clinisync Result Encounter Generic External Data Provider [facility] External Department Unsolicited Start: 05-12-2024 End: 05-12-2024 Clinisync Result Encounter Generic External Data Provider [facility] External Department Unsolicited Start: 05-08-2024 ambulatory SARAH Wilkerson ty:SHEA Villalobos Start: 04-14-2024 End: 04-14-2024 Bamboo flowsheet Mckayla Blas [employer] INSTALLER Work Phone: [facility] Start: 04-14-2024 End: 04-14-2024 Bamboo flowsheet Mckayla Blas [employer] INSTALLER Work Phone: [facility] Start: 04-14-2024 End: 04-14-2024 Office outpatient visit 25 minutes Mckayla Blas [employer] INSTALLER Work Phone: [facility] Comment on above: Primary hypertension (CMS/HCC) (Primary [...] unspecified (CMS/HCC); Pulmonary emphysema, unspecified emphysema type (CMS/[facility]); Bilateral lower extremity edema; Tobacco user; Hyperpigmentation of skin Start: 04-14-2024 End: 04-14-2024 ambulatory MCKAYLA AICHHOLZ Not Available Start: 04-05-2024 End: 04-06-2024 Refill Mckayla Wan [employer]ER Work Phone: [facility] Comment on above: Hyperlipidemia, unsp ecified (CMS/HCC); Bilateral lower extremity edema Vitamin D deficiency , unspecified Start: 01-17-2024 Patient encounter procedure Rain Souza MD Work Phone: [facility] Start: 01-17-2024 End: 01-17-2024 ambulatory MCKAYLA AICHHOLZ Not Available Start: 11-15-2023 End: 11-15-2023 ambulatory MCKAYLA AICHHOLZ Not Available Start: 11-14-2023 End: 11-14-2023 ambulatory [facility] Start: 11-01-2023 End: 11-01-2023 ambulatory MCKAYLA AICHHOLZ Not Available Start: 09-27-2023 End: 09-27-2023 ambulatory MCKAYLA AICHHOLZ Not Available Start: 08-17-2023 Refill Mckayla Aichholz [employer] Work Phone: [facility] Comment on above: Vaginal yeast infect ion (Primary Dx) Start: 08-14-2023 Refill Mckayla Aichholz [employer] INSTALLER Work Phone: [facility] Comment on above: Type 2 diabetes asiya itus with unspecified complications ([facility]); Edema, unspecified; Edema Start: 12-05-2022 ambulatory NARENDRANATH LAKSHMIPATHY . Facility:[facility] Start: 12-05-2022 End: 12-06-2022 Evaluation and management of inpatient UBMERTO ALONDRA . Facility:[facility] Start: 11-23-2022 End: 11-23-2022 ambulatory FELT FINISHING SUPERVISOR MCKAYLA AICHHOLZ Facility:[facility] Start: 11-22-2022 End: 11-23-2022 ambulatory FELT FINISHING SUPERVISOR MCKAYLA AICHHOLZ Facility:[facility] Start: 11-17-2022 End: 11-18-2022 ambulatory SUBHASH GASPAR . Facility:[facility] Start: 11-15-2022 End: 11-15-2022 Patient encounter procedure SARAH VEGA [facility] Start: 10-05-2022 End: 10-05-2022 ambulatory MARIANO LOZANO . Facility:[facility] Start: 09-21-2022 End: 09-21-2022 ambulatory FELT FINISHING SUPERVISOR MCKAYLA AICHHOLZ Facility:[facility] Start: 09-14-2022 ambulatory RAFAEL GONGORA Facilit y:[facility] Start: 08-24-2022 End: [address] CHAPARRO MORTENSEN . Facility:[facility] Start: 08-21-2022 End: 08-22-2022 ambulatory HATTIE Ramsey ZOHRABANDAR Facility:[facility] Start: 07-27-2022 End: 07-28-2022 ambulatory CECILIA BJORNRUCHI . Facility:[facility] Start: 07-18-2022 End: 07-19-2022 ambulatory CECILIA MILANRUCHI . Facility:[facility] Start: 07-18-2022 End: 07-19-2022 ambulatory HATTIE Ramsey ZOHRABANDAR Facility:[facility] Start: 07-06-2022 End: 07-06-2022 ambulatory SAYDA MEJIARAVIJuanis Facility:[facility] Start: 05-11-2022 End: 05-12-2022 ambulatory GIL VALENZUELA . Facility:[facility] Start: 04-25-2022 End: 04-25-[address] CHAPARRO MORTENSEN . Facility:[facility] Start: 04-20-2022 End: 04-21-2022 ambulatory GIL VALENZUELA . Facility:[facility] Start: 03-08-2022 End: 03-08-2022 ambulatory Stephanie Tico Other [facility] Other Start: 03-08-2022 Office outpatient vi sit 15 minutes Stephanie Tico [facility] Start: 03-03-2022 End: 03-04-2022 ambulatory FELT FINISHING SUPERVISOR MCKAYLA WAN Facility:[facility] Start: 02-20-2022 End: 02-20-2022 ambulatory Stephanie Tico Other [facility] Other Start: 02-20-2022 Office outpatient ne w 45 minutes Stephanie Tico [facility] Start: 02-06-2022 End: 02-06-2022 Patient encounter procedure Elbert ARAUZ [facility] Start: 01-19-2022 End: 01-20-2022 ambulatory GIL VALENZUELA . Facility:[facility] Start: 12-24-2021 End: 12-24-2021 ambulatory OLE RAMIREZ Facility:[facility] Start: 08-26-2020 End: 09-10-2020 Patient encounter procedure VITHAL SHENDGE Facility:[facility] Start: 05-28-2020 Patient encounter status Robin Hudson MD Work Phone: [facility] Work Phone: Start: 10-30-2019 End: 10-30-2019 Emergency department patient visit JAMES Reis [facility] Start: 10-30-2019 End: 10-30-2019 Emergency department patient visit James Benavidez [facility] Start: 11-02-2016 Preoperative state Stephanie Tico Other [facility] Other Procedures Date Procedure Procedure Detail Performing Clinician Start: 05-27-2024 Gluc bld gluc mntr d ev cleared fda spec home use Rain Souza MD Work Phone: Start: 05-12-2024 [facility] CREATININE Generic External Data Provider Start: 12-14-2023 Mammography Rain urena MD Work Phone: Start: 11-22-2022 Mammography Mckayla clifford NP Work Phone: Start: 10-08-2015 Microscopic observat ion [Identifier] in Cervix by Cyto stain Mckayla Blas [employer] INSTALLER Work Phone: H/O: hysterectomy Elbert LARA Laparoscopic cholecystectomy Elbert ARAUZ Operative procedure on foot Elbert ARAUZ Plan of Treatment Date Care Activity Detail Author Start: 08-03-2025 Screening for malign ant neoplasm of colon [facility] Start: 07-14-2025 Glaucoma screening Diabetes: R etinopathy Screening [facility] Start: 05-13-2025 Glaucoma screening Diabetes: R etinopathy Screening [facility] Start: 01-16-2025 Medicare Annual Well ness (AWV) Medicare Annual Wellness (AWV) [facility] Start: 12-13-2024 Screening for malign ant neoplasm of breast Mammogram [facility] Start: 11-11-2024 Urine screening for protein Diabetes: Urine Protein Screening [facility] Start: 08-27-2024 End: 08-27-2024 Patient encounter procedure 08/27/2024 5:30 PM EST Office Visit [facility] [address] [place] [address] Mckayla Blas, [employer] INSTALLER [address] [place] [address] [facility] Start: 08-27-2024 Hemoglobin A1c measurement Diabetes: Hemoglobin A1C [facility] Start: 08-26-2024 End: 08-26-2024 Patient encounter procedure 08/26/2024 10:30 AM EST Office Visit [facility] [address] [place] [address] Rain Souza MD [address] [place] [address] [facility] Start: 07-14-2024 End: 07-14-2024 Patient encounter procedure 07/14/2024 6:30 PM EST Office Visit [facility] [address] [place] [address] Mckayla Blas, [employer] INSTALLER [address] [place] [address] [facility] Start: 07-14-2024 End: 07-14-2024 Patient encounter procedure 07/14/2024 10:10 AM EST Office Visit [facility] [address] [place] [address] Rain Souza MD [address] [place] [address] [facility] Start: 06-19-2024 End: 06-19-2024 Patient encounter procedure 06/19/2024 11:10 AM EST Office Visit [facility] [address] [place] [phone] Jonathan Hudson MD [address], [address] [address] [facility] Start: 06-06-2024 Influenza vaccination Influenza Vacc ine (#1) [facility] Comment on above: Postponed from 03/09 (Patient Refused) Start: 05-27-2024 End: 05-27-2024 Patient encounter procedure 05/27/2024 9:50 AM EST Office Visit [facility] [address] [place] [address] Rain Souza MD [address] [place] [address] [facility] Start: 05-17-2024 Hemoglobin A1c measurement Diabetes: Hemoglobin A1C [facility] Start: 05-15-2024 End: 05-15-2024 Chart abstracting 05/15/2024 Abstract [facility] [address] [place] [address] Rain Souza MD [address] [place] [address] [facility] Start: 05-15-2024 End: 05-15-2024 Patient encounter procedure 05/15/2024 11:20 AM EST Office Visit [facility] [address] [place] [address] Rain Souza MD [address] [place] [address] [facility] Start: 04-17-2024 End: 04-17-2024 Patient encounter procedure 04/17/2024 3:40 PM EDT Office Visit [facility] [address] [place] [address] Mckayla Blas, SILVANO [address] [place] [phone] [facility] Start: 04-14-2024 End: 04-14-2024 Patient encounter procedure 04/14/2024 11:00 AM EDT Office Visit [facility] [address] [place] [address] Mckayla Blas, SILVANO [address] [place] [phone] Arrived [facility] Comment on above: Arrived Start: 03-09-2024 COVID-19 Vaccine ( season) COVID-19 Vaccine () [facility] Start: 03-09-2024 Influenza vaccination [facility] Start: 02-19-2024 Hemoglobin A1c measurement Diabetes: Hemoglobin A1C [facility] Start: 11-24-2023 Urine screening for protein Diabetes: Urine Protein Screening [facility] Start: 11-23-2023 Screening for malign ant neoplasm of breast Mammogram [facility] Start: 10-15-2023 End: 10-15-2023 Patient encounter procedure 10/15/2023 4:30 PM EDT Office Visit [facility] [address] [place] [address] Mckayla Blas, SILVANO [address] [place] [address] [facility] Start: 08-09-2023 Hemoglobin A1c measurement Diabetes: Hemoglobin A1C [facility] Start: 05-27-2021 Glaucoma screening Diabetes: R etinopathy Screening [facility] Start: 2020 Administration of varicella zoster vaccine Zoster (Shingles) Vaccine (1 of 2) [facility] Start: 03-09-2020 Influenza vaccination Flu vacc ine (Season Ended) [place] Start: 10-07-2018 Screening for malign ant neoplasm of cervix [facility] Start: 2010 Lipid panel Lipid screen Shantelle Camacho [place], [place] Start: 2000 Screening for malign ant neoplasm of cervix HPV/Cotest [facility] Start: 1991 Screening for malign ant neoplasm of cervix [facility] Start: 1989 DTaP,Tdap and Td Vaccines (1 - Tdap) DTaP,Tdap and Td Vaccines (1 - Tdap) [facility] Start: 1989 DTaP/Tdap/Td vaccine (1 - Tdap) DTaP/Tdap/Td vaccine (1 - Tdap) [place] Start: 1988 Adult BMI Follow Up Plan Adult BMI Follow Up Plan [facility] Start: 1988 Adult BMI Screening Adult BMI Screen ing [facility] Start: 1985 HIV screening HIV screen Shantelle Alvarado [place], [place] Start: 1982 Depression Screening Depression Scre ening [facility] Start: 1982 Tobacco Screening Tobacco Screening [facility] Start: 1970 Medicare Annual Well ness (AWV) Medicare Annual Wellness (AWV) [facility] Start: 1970 Screening for malign ant neoplasm of colon [facility] Immunizations Immunization Date Immunization Notes Care Provider Fa [facility] 05-18-2023 influenza, injectabl e, quadrivalent, contains preservative Mckayla Blas NP Work Phone: [facility] [facility]23 influenza virus vacc ine, unspecified formulation Rain Souza MD Work Phone: [facility] 07-19-2021 SARS-CoV-2 (COVID-19 ) mRNA BNT-162b2 audrey VEGA [facility] 10-28-2020 SARS-CoV-2 (COVID-19 ) mRNA BNT-162b2 audrey VEGA [facility] 10-08-2020 SARS-CoV-2 (COVID-19 ) mRNA BNT-162b2 vax SARAH VEGA [facility] 04-16-2017 influenza virus vacc ine, H5N1, A/ (national stockpile) Mckayla Blas [employer] Work Phone: [facility] 04-16-2017 influenza virus vacc ine, unspecified formulation Rain Souza MD Work Phone: [facility] 04-16-2017 influenza, unspecifi ed formulation Elbert ARAUZ [facility] 04-16-2017 pneumococcal polysaccharide vaccine, 23 valent Rain Souza MD Work Phone: [facility] 05-10-2016 influenza virus vacc ine, H5N1, A/ (national stockpile) Mckayla Blas [employer] Work Phone: [facility] 05-10-2016 influenza virus vacc ine, unspecified formulation Rain Souza MD Work Phone: [facility] 05-10-2016 influenza, unspecifi ed formulation Elbert ARAUZ [facility] 05-02-2013 influenza virus vacc ine, whole virus Rain Souza MD Work Phone: [facility] 05-02-2013 influenza, injectabl e, quadrivalent, contains preservative Mckayla Blas NP Work Phone: [facility] 05-02-2013 influenza, whole Elbert ARAMBULA [facility] 01-29-1998 measles, mumps and rubella virus vaccine Rain Souza MD Work Phone: [facility] Payers Date Payer Category Payer Medicare (Managed Care) [employer] [id number] 2023 Private Health Insurance [facility] [id number] 2023-Present [address] [address] [place] [address] [id number] 2023 Medicare [id number] 2023 Private Health Insurance [id number] 2018 Medicaid [id number] 2017 Medicare [id number]. [id number] 2017 Medicare O [employer] MEDICARE [id number] 1970 Unknown [id number] 2.16.840.1.037937.3.579. 2.647 1970 Unknown [id number] 2.16.840.1.471501.3.579. 2.593 1970 Unknown [id number] 2.16.840.1.481325.3.579. 2.593 1970 Unknown [id number] 2.16.840.1.582337.3.579. 2.593 1970 Unknown [id number] 2.16.840.1.670278.3.579. 2.593 1970 Unknown [id number] 2.16.840.1.780230.3.579. 2.593 1970 Unknown [id number] 2.16.840.1.029251.3.579. 2.593 1970 Unknown [id number] 2.16.840.1.549918.3.579. 2.593 1970 Unknown [id number] 2.16.840.1.160916.3.579. 2.593 1970 Unknown [id number] 2.16.840.1.559773.3.579. 2.593 1970 Unknown [id number] 2.16.840.1.575315.3.579. 2.593 1970 Unknown [id number] 2.16.840.1.419896.3.579. 2.593 1970 Unknown [id number] 2.16.840.1.565034.3.579. 2.593 1970 Unknown [id number] 2.16.840.1.722368.3.579. 2.593 1970 Unknown [id number] 2.16.840.1.880319.3.579. 2.593 1970 Unknown [id number] 2.16.840.1.615005.3.579. 2.593 1970 Unknown [id number] 2.16.840.1.285987.3.579. 2.593 1970 Unknown [id number] 2.16.840.1.941567.3.579. 2.593 1970 Unknown [id number] 2.16.840.1.293794.3.579. 2.593 1970 Unknown [id number] 2.16.840.1.398126.3.579. 2.593 1970 Unknown [id number] 2.16.840.1.227751.3.579. 2.593 1970 Unknown [id number] 2.16.840.1.576379.3.579. 2.593 1970 Unknown [id number] 2.16.840.1.895590.3.579. 2.593 1970 Unknown [id number] 2.840.1.366850.3.579. 2.727 1970 Unknown [id number] .840.1.438474.3.579. 2.727 1970 Unknown [id number] 2.840.1.402560.3.579. 2.1259 1970 Unknown [id number] 2.840.1.752790.3.579. 2.1259 1970 Unknown [id number] 2.840.1.133354.3.579. 2.1259 1970 Unknown [id number] 2.840.1.098447.3.579. 2.1259 1970 Unknown [id number] 2.16840.1.580659.3.579. 2.1259 1970 Unknown [id number] 2.16840.1.056886.3.579. 2.1259 1970 Unknown [id number] 2.16840.1.997843.3.579. 2.1259 1959 Medicaid [id number] 1959 Private Health Insurance [id number] 1959 Unknown [id number] ..840.1.101706.19 Social History Date Type Detail Facility Start: 02-17-2014 End: 07-10-2023 Tobacco smoking status NHIS Current every day smoker [place] Start: 02-17-1994 History of tobacco use Cigarette Smo ker [place] Start: 02-17-2014 End: 07-10-2023 Cigarettes smoked current (pack per day) - Reported [place] Start: 02-17-2014 End: 09-16-2020 Alcohol intake Current drinker of alcohol (finding) [place] Start: 02-17-2014 Alcohol Comment Rare Shantelle Monteiro [place], [place] Start: 1970 Sex Assigned At Not on file [place] Exposure to SARS-CoV -2 (event) Unable to assess [place] Start: 02-06-2022 Tobacco smoking status Smoker (findi ng) [facility] Start: 07-10-2023 End: 01-17-2024 Sex Assigned At Female [facility] Start: 11-15-2022 End: 06-11-2024 Tobacco smoking status Heavy tobacco smoker (finding) [facility] Start: 09-25-2018 End: 07-10-2023 Tobacco use and exposure Smokeless tobacco non-user [facility] Start: 07-10-2023 End: 07-14-2024 Alcohol intake Lifetime non-drinker (finding) [facility] Within the last year , have you been afraid of your partner or ex-partner? No [facility] Do you belong to any clubs or organizations such as sabianism groups, unions, fraternal or athletic groups, or [...] to buy more. Never true [facility] Start: 09-25-2018 [facility] Start: 02-11-2015 Sex Female (finding) [facility] Medical Equipment Procedure Code Equipment Code Equipment Origin al Text Equipment Identifier Dates [id number] Start: 01-18-2024 USE TO TEST BLOO D SUGAR 4 TIMES DAILY [id number] Start: 07-07-2024 Functional Status Date Assessment Result Facility 06-11-2024 Functional Status N/A [facility] 11-15-2022 Functional Status N/A [facility] 02-06-2022 Functional Status N/A [facility] Clinical Notes 01-19-2022 to 08-08-2024 Mckayla Blas, [employer] - 07/14/2024 7:36 PM ESTMckayla Blas, [employer]ER - 07/14/2024 7:33 PM Ed Blas NP - 07/14/2024 7:32 PM ESTMckayla Blas, [employer]ER - 07/14/2024 7:31 PM EST Note Date & Type Note Facility 08-08-2024 Note [facility] Subjective Mitzi Macias is a 53 y.o. year old female patient being seen for follow-up on diastolic heart failure, shortness of breath and hypertension Patient Active Problem List Diagnosis Abdominal pannus Adrenal mass 1 cm to 4 cm in diameter (CMS/HCC) Albuminuria RAGHU positive Anxiety and depression Arthritis Asthma Bilateral lower extremity edema BMI 50.0-59.9, adult (CMS/HCC) Candidiasis of breast Cardiomegaly Cervical cancer (CMS/HCC) Chronic pain of both knees Closed fracture of upper end of humerus Acute respiratory distress syndrome (CMS/HCC) Decreased functional mobility Diabetic neuropathy ([facility]/HCC) Easy bruising GERD (gastroesophageal reflux disease) Gout Headache Hyperlipidemia Hypertension Insomnia Kidney stone Left flank pain Mixed incontinence Class 3 severe obesity with serious comorbidity and body mass index (BMI) of 50.0 to 59.9 in adult ([facility]/HCC) Non-seasonal allergic rhinitis Obstructive sleep apnea Other chronic pain PAD (peripheral artery disease) ([facility]) Pneumonia Encounter for screening mammogram for malignant neoplasm of breast Pulmonary hypertension ([facility]/HCC) Radiculopathy, lumbar region Current smoker Type 2 diabetes mellitus with complication, with long-term current use of insulin ([facility]/HCC) Unilateral primary osteoarthritis, right hip Vaginal yeast infection Venous insufficiency Bad odor of urine Critical limb ischemia of right lower extremity ([facility]/HCC) Hyperpigmentation of skin 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 2 diabetes mellitus ([facility]/HCC) Myelolipoma of adrenal gland Venous ulcer of right leg ([facility]) HPI Patient was has history of chronic diastolic heart failure, hypertension, hyperlipidemia, diabetes mellitus, and longstanding heavy smoking. She also has history of COPD, sleep apnea, and morbid obesity. Patient is here today for follow-up visit. She states that she walks around and she does ordinary daily activities without chest pain or shortness of breath. She denies orthopnea or paroxysmal nocturnal dyspnea or dizziness or palpitations. She admits mild legs edema and she has a right leg ulcer, she follows with vein specialist and in the wound clinic She continues to smoke half to 1 pack/day. She states that she tried Chantix but did not help. She thinks that going to smoking cessation classes and the use of nicotine nicotine patches will help her because it helped in the past. She has sleep apnea but she does not wear currently the CPAP because issues with the mask and she is working on getting a better fit mask ROS All systems were reviewed and they were negative except for the positive findings noted above in the history Past Medical History: Diagnosis Date COPD (chronic obstructive pulmonary disease) ([facility]/HCC) Diabetes mellitus ([facility]) Hyperlipidemia Hypertension Sleep apnea Past Surgical History: Procedure Laterality Date CHOLECYSTECTOMY HYSTERECTOMY Family History Problem Relation Name Age of Onset Heart attack Paternal Grandmother Social History Tobacco Use Smoking status: Every Day Current packs/day: 0.50 Types: Cigarettes Smokeless tobacco: Never Substance Use Topics Alcohol use: Not Currently Allergies No Known Allergies Medications Current Outpatient Medications: amitriptyline (Elavil) 50 mg tablet, Take 1 tablet by mouth at bedtime., Disp: , Rfl: aspirin 81 mg chewable tablet, Chew 81 mg in the morning., Disp: , Rfl: baclofen (Lioresal) 10 mg tablet, Take 1 tablet by mouth at bedtime., Disp: , Rfl: Breztri Aerosphere 160-9-4.8 mcg/actuation HFA aerosol inhaler, INHALE 2 PUFFS BY MOUTH IN THE MORNING AND BEFORE BEDTIME *RINSE MOUTH AFTER USE*, Disp: , Rfl: cetirizine (ZyrTEC) 10 mg tablet, Take 10 mg by mouth if needed., Disp: , Rfl: diclofenac (Voltaren) 75 mg EC tablet, Take 75 mg by mouth twice a day., Disp: , Rfl: DULoxetine (Cymbalta) [address] capsule, Take 1 tablet by mouth in the morning., Disp: , Rfl: ergocalciferol (Vitamin D-2) 1.25 MG (76200 Units) capsule, Take 1.25 mg by mouth., Disp: , Rfl: Farxiga 10 mg, 10 mg in the morning., Disp: , Rfl: furosemide (Lasix) 20 mg tablet, if needed., Disp: , Rfl: furosemide (Lasix) 40 mg tablet, Take 1 tablet by mouth in the morning., Disp: , Rfl: hydrALAZINE (Apresoline) 25 mg tablet, Take 25 mg by mouth in the morning and at bedtime., Disp: , Rfl: HYDROcodone-acetaminophen ([place]) 5-325 mg tablet, TAKE 1 TABLET BY MOUTH THREE TIMES A DAY NEEDED FOR PAIN MUST LAST 30 DAYS, Disp: , Rfl: insulin aspart (NovoLOG) 100 unit/mL (3 mL) injection pen, Novolog Flexpen U-100 Insulin aspart 100 unit/mL (3 mL) subcutaneous, Disp: , Rfl: insulin glargine (Lantus Solostar U-100 Insulin) 100 unit/mL (3 mL) injection pen, INJECT 48 UNITS SUBCUTANEOUSLY TWICE DAILY, Disp: (more content not included)... [facility] 07-14-2024 History of Present illness Narrative Associated Problem(s): Radiculopathy, lumbar region Lumbar MRI with pain mgmt, needs surgery, however needs to quit smoking as well as beet DM control Pain Mgmt wondered about increase lyrica to 300mg TID I am not aware that the dose can increase to TID for total of 900mg daily I will reach out to Pain Mgmt about if they feel this is necessary they take over prescribing Associated Problem(s): Adrenal mass 1 cm to 4 cm in diameter (CMS/HCC) Continue with Urology Associated Problem(s): Kidney stone Continue with Urology Associated Problem(s): Critical limb ischemia of right lower extremity (CMS/HCC) Saw vascular, does have narrowing in arteries in legs, and thus the wounds not healing At this point they strongly urge to quit smoking or risk limb amputation Cont asa and statin Also good blood pressure and sugar control Images from the original note were not included. [place] from tricia Urologist appt: CT scan , mass adrenal sl increase in size, kdiney stones sl bigger no intervention A1c was 8.3% no dose changes Vascular: wound care, pressures done on narrowing in artery Chantix not helped, right leg: ulcers not healing fast, finished atb Next fu 07/21/24 wound care, home pain right foot and ankle Pain Mgmt: MRI lumbar spine: d/t no better after injection, Mitzi Macias is a 53 y.o. female presents with chief complaint of No chief complaint on file. HPI: HPI SUBJECTIVE: MEDICATIONS: Current Outpatient Medications Medication Instructions Accu-Chek Guide Test test strip USE TO TEST BLOOD SUGAR 4 TIMES DAILY albuterol HFA 90 mcg/act inhaler 2 puffs, Every 4 hours PRN albuterol 2.5 mg, Every 6 hours PRN amitriptyline (ELAVIL) 25 mg, Oral, Nightly aspirin 81 mg, Oral, Daily baclofen (LIORESAL) 10 mg, 3 times daily cetirizine (ZYRTEC) 10 mg, Oral, Daily dapagliflozin (FARXIGA) 10 mg, Oral, Daily diclofenac (VOLTAREN) 75 mg, 2 times daily DULoxetine (CYMBALTA) 60 mg, Oral, 2 times daily, Do not crush or chew. ergocalciferol (Vitamin D2) 1.25 MG (36268 UT) capsule TAKE 1 CAPSULE BY MOUTH ONE TIME PER WEEK furosemide (LASIX) 40 mg, Oral, Daily furosemide (LASIX) 20 mg, Oral, Daily PRN, Take in the afternoon as needed hydrALAZINE (APRESOLINE) 25 mg, Oral, 2 times daily HYDROcodone-acetaminophen ([place]) 5-325 MG tablet 1 tablet, 3 times daily PRN insulin glargine (LANTUS) 58 Units, 2 times daily Insulin Lispro (HUMALOG KWIKPEN SC) 3 times daily before meals ipratropium-albuterol (Duo-Neb) 0.5-2.5 mg/3 mL nebulizer solution Daily PRN lisinopril 20 mg, Oral, Daily naloxone (NARCAN) 4 mg, As needed nicotine (Nicoderm, Step 1) 21 MG/24HR patch 1 patch, Transdermal, Every 24 hours, May either leave patch on 24 hours, or apply in the morning and take of at bedtime, rotate sites nortriptyline (Pamelor) 50 MG capsule 1 capsule, Daily omeprazole (PRILOSEC) 20 mg, Oral, Daily before breakfast oxygen (O2) 2 L/min, Continuous pen needle 32G x 5 mm misc 5 each, Daily potassium chloride ER (Micro-K) 10 MEQ ER capsule 10 mEq, Oral, Daily, Take 1 capsule (10 mEq) by mouth in the morning. pregabalin (LYRICA) 300 mg, Oral, 2 times daily Roflumilast 500 MCG tablet 1 tablet, Oral, Daily simvastatin (ZOCOR) 10 mg, Oral, Nightly Tirzepatide (Mounjaro) 15 MG/0.5ML solution auto-injector INJECT 15MG SUBCUTANEOUSLY ONCE A WEEK ALLERGIES: No Known Allergies REVIEW OF SYMPTOMS: Review of Systems Constitutional: Negative for appetite change, chills and fever. HENT: Negative for congestion, ear pain and sore throat. Eyes: Negative for pain, discharge, redness and visual disturbance. Respiratory: Positive for cough, shortness of breath and wheezing. Cardiovascular: Negative for chest pain, palpitations and leg swelling. Gastrointestinal: Negative for abdominal pain, blood in stool, constipation, diarrhea, nausea and vomiting. Genitourinary: Negative for difficulty urinating, dysuria and frequency. Musculoskeletal: Positive for arthralgias, back pain and myalgias. Negative for joint swelling. Skin: Positive for wound. Negative for rash. Neurological: Positive for numbness. Negative for dizziness, tremors, seizures, syncope and headaches. Psychiatric/Behavioral: Negative for behavioral problems, self-injury and suicidal ideas. The patient is nervous/anxious. Depression Hematological: Does not bruise/bleed easily. Endocrine: Negative for polydipsia, polyphagia and polyuria. Allergic/Immunologic: Negative for environmental allergies and food allergies. 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 Anxiety and depression [facility] 07/10/2023 Asthma ([facility] 07/10/2023 Body mass index (BMI) 50.0-59.9, adult ([facility]) Cellulitis of left lower extremity Cervical cancer ([facility]) 09/17/2023 Chronic pain of both knees 09/17/2023 COPD (chronic obstructive pulmonary disease) ([facility] 07/10/2023 COPD exacerbation ([facility]) 09/17/2023 Decreased functional mobility 09/17/2023 Diabetic neuropathy ([facility]) 07/10/2023 Dietary counseling and surveillance Edema 07/10/2023 Elevated sed rate Elevated WBC count Essential (primary) hypertension ([facility]) GERD (gastroesophageal reflux disease) 09/17/2023 Hyperlipidemia ([facility]) 09/17/2023 Hypertension ([facility]) 07/10/2023 Insomnia 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 ([facility]) Lower extremity edema 09/17/2023 Mixed hyperlipidemia ([facility] Morbid (severe) obesity due to excess calories ([facility]) Obstructive sleep apnea 07/10/2023 PAD (peripheral artery disease) ([facility]) 09/17/2023 Pancreatitis 09/17/2023 Pneumonia 09/17/2023 Proteinuria, unspecified Pulmonary hypertension ([facility]) 09/17/2023 Radiculopathy, lumbar region 09/17/2023 Tobacco user 09/17/2023 Type 2 diabetes mellitus with complication, with long-term current use of insulin ([facility]) 07/10/2023 Unilateral primary osteoarthritis, right hip 09/17/2023 Vaginal yeast infection 08/17/2023 Venous insufficiency 09/17/2023 Vitamin D deficiency, unspecified Past Surgical History: Procedure Laterality Date CERVIX SURGERY removal of pre cancer cell from cervix CHOLECYSTECTOMY 2019 HYSTERECTOMY PARTIAL HYSTERECTOMY 2003 TOE SURGERY Left Ulcer debridement family history includes Cancer in her paternal grandfather and paternal grandmother; Hypertension in her paternal grandmother; Mental illness in an other family member; No Known Problems in her father; Varicose veins in her father's sister. OBJECTIVE: Visit Vitals Smoking Status Every Day Physical Exam Constitutional: Appearance: Normal appearance. She is obese. She is not ill-appearing, toxic-appearing or diaphoretic. HENT: Head: Normocephalic. Right Ear: External ear normal. Left Ear: External ear normal. Nose: Nose normal. Mouth/Throat: Mouth: Mucous membranes are moist. Pharynx: Oropharynx is clear. Eyes: Extraocular Movements: Extraocular movements intact. Conjunctiva/sclera: Conjunctivae normal. Skin: General: Skin is warm and dry. Neurological: General: No focal deficit present. Mental Status: She is alert and oriented to person, place, and time. Psychiatric: Mood and Affect: Mood normal. Behavior: Behavior normal. Thought Content: Thought content normal. Judgment: Judgment normal. ASSESSMENT AND PLAN: No follow-ups on file. Problem List Items Addressed This Visit Diabetic neuropathy ([facility]) Continue with tristan [facility] reviewed Fu in 3 months COPD (chronic obstructive pulmonary disease) ([facility]) Stable at this time, no changes in meds Encouraged smoking cessation Cont with dr Yañez Hypertension ([facility]) - Primary Please check blood pressure daily and record DASH diet Limit caffeine Take medication as directed Contact office if chest pain, pressure, dizziness, shortness of breath, swelling legs Recommend slow position changes Current meds: hydralazine, lisinopril, Type 2 diabetes mellitus with complication, with long-term current use of insulin ([facility]) Check blood sugars daily, notify if <70 or >200. Take medications (pills or insulin) as directed. [...] diet low in carbohydrates, and simple sugars. Continues to follow with Libby On asa, tila, statin Most recent A1c is 9.2% on 05/27/24 Relevant Medications aspirin 81 MG chewable tablet Bilateral lower extremity edema Stable on current meds Radiculopathy, lumbar region Lumbar MRI with pain mgmt, needs surgery, however needs to quit smoking as well as beet DM control Pain Mgmt wondered about increase lyrica to 300mg TID I am not aware that the dose can increase to TID for total of 900mg daily I will reach out to Pain Mgmt about if they feel this is necessary they take over prescribing PAD (peripheral artery disease) ([facility]) Asa, statin Quit smoking BP and DM control GERD (gastroesophageal reflux disease) Recommendations: freq small meals, nothing to eat or drink at least 2 hours prior to bed, limit caffeine, alcohol, as well as spicy foods Meds to limit or avoid if possible: NSAIDS Elevate HOB if possible Current med: PPI Tobacco user The patient has been advised of the risks of continued smoking: stroke, GA, all forms of cancer, lung disease, and . Options for quitting smoking include: cold turkey, hypnosis, acupuncture, nicotine replacement meds (gum, lozenges, and patches), Buproprion, and Varenicline. At this time pt is encouraged to evaluate their goals for wanting to quit smoking, and reach out to provider when ready to start this process Willing to trial nicotine patches Adrenal mass 1 cm to 4 cm in diameter ([facility]) Continue with Urology Kidney stone Continue with Urology Non-seasonal allergic rhinitis Relevant Medications cetirizine (ZyrTEC) 10 MG tablet Critical limb ischemia of right lower extremity ([facility]) Saw vascular, does have narrowing in arteries in legs, and thus the wounds not healing At this point they strongly urge to quit smoking or risk limb amputation Cont asa and statin Also good blood pressure and sugar control Venous ulcer of right leg ([facility]) Encounter for smoking cessation counseling Relevant Medications nicotine (Nicoderm, Step 1) 21 MG/24HR patch Other Visit Diagnoses Type 2 diabetes mellitus with unspecified complications ([facility]) Quitting smokinppd, chantix not helped, ] Face time with pt, spent 15 minutes with pt Associated Problem(s): Tobacco user The patient has been advised of the risks of continued smoking: stroke, [place], all forms of cancer, lung disease, and . Options for quitting smoking include: cold turkey, hypnosis, acupuncture, nicotine replacement meds (gum, lozenges, and patches), Buproprion, and Varenicline. At this time pt is encouraged to evaluate their goals for wanting to quit smoking, and reach out to provider when ready to start this process Willing to trial nicotine patches Associated Problem(s): Type 2 diabetes mellitus with complication, with long-term current use of insulin ([facility]) Check blood sugars daily, notify if <70 or >200. Take medications (pills or insulin) as directed. [...] diet low in carbohydrates, and simple sugars. Continues to follow with Libby On asa, tila, statin Most recent A1c is 9.2% on 05/27/24 Associated Problem(s): Bilateral lower extremity edema Stable on current meds Associated Problem(s): GERD (gastroesophageal reflux disease) Recommendations: freq small meals, nothing to eat or drink at least 2 hours prior to bed, limit caffeine, alcohol, as well as spicy foods Meds to limit or avoid if possible: NSAIDS Elevate HOB if possible Current med: PPI Associated Problem(s): PAD (peripheral artery disease) (CMS/HCC) Asa, statin Quit smoking BP and DM control Associated Problem(s): Hypertension (CMS/HCC) Please check blood pressure daily and record DASH diet Limit caffeine Take medication as directed Contact office if chest pain, pressure, dizziness, shortness of breath, swelling legs Recommend slow position changes Current meds: hydralazine, lisinopril, Associated Problem(s): COPD (chronic obstructive pulmonary disease) (CMS/HCC) Stable at this time, no changes in meds Encouraged smoking cessation Cont with dr Yañez Associated Problem(s): Diabetic neuropathy (CMS/HCC) Continue with tristan [facility] reviewed Fu in 3 months documented in this encounter [facility] 06-19-2024 Evaluation + Plan note Associated Problem(s): Venous ulcer of right leg (CMS-HCC) Continue wound care. We will get venous reflux ultrasound. [facility] 06-19-2024 Evaluation + Plan note Associated Problem(s): Smoking Counseled on smoking cessation for at least 3 minutes. She is willing to quit. [facility] 06-19-2024 Miscellaneous Notes Associated Problem(s): Venous ulcer of right leg (CMS-HCC) Continue wound care. We will get venous reflux ultrasound. Associated Problem(s): Smoking Counseled on smoking cessation for at least 3 minutes. She is willing to quit. Associated Problem(s): Critical limb ischemia of right lower extremity (CMS-HCC) We will get PVR and CTA with runoff documented in this encounter [facility] 06-19-2024 Evaluation + Plan note Associated Problem(s): Critical limb ischemia of right lower extremity (CMS-HCC) We will get PVR and CTA with runoff [facility] 06-19-2024 History of Present illness Narrative Images from the original note were not included. To: MCKAYLA BLAS, WATER VALVE MECHANIC-FELT FINISHING SUPERVISOR HPI: Mitzi Macias is a 53 y.o. female with morbid obesity venous ulcer in the right lower extremity continued to smoke and has evidence of her right lower extremity occlusive disease. She does not have testing. I had a long discussion with her about smoking cessation and weight loss. She is getting Mounjaro and being managed for her weight loss she lost 100 lb. Discussed with her that she needs to quit smoking in we need to get testing both for her venous insufficiency in her critical limb threatening ischemia as well. She is high-risk for limb loss. Review of Systems: Review of Systems Constitutional: Negative. HENT: Negative. Respiratory: Negative. Cardiovascular: Negative. Gastrointestinal: Negative. Endocrine: Negative. Genitourinary: Negative. Musculoskeletal: Negative. Skin: Negative. Neurological: Negative. Hematological: Negative. Medications: Current Outpatient Medications on File Prior to Visit Medication Sig Dispense Refill albuterol (PROVENTIL HFA;VENTOLIN HFA) 90 mcg/actuation inhaler as needed. albuterol (PROVENTIL,VENTOLIN) 2.5 mg /3 mL (0.083 %) nebulizer solution albuterol sulfate 2.5 mg/3 mL (0.083 %) solution for nebulization amitriptyline (ELAVIL) 50 mg tablet Take 1 tablet (50 mg total) by mouth nightly. budesonide-formoteroL (SYMBICORT) 160-4.5 mcg/actuation inhaler Inhale 2 puffs in the morning and 2 puffs before bedtime. DULoxetine (CYMBALTA) 60 mg capsule Take 1 capsule (60 mg total) by mouth in the morning. furosemide (LASIX) 40 mg tablet Take 1 tablet (40 mg total) by mouth daily. HYDROcodone-acetaminophen (NORCO) 5-325 mg per tablet 2 (two) times a day. insulin aspart U-100 (NovoLOG) 100 unit/mL (3 mL) insulin pen Novolog Flexpen U-100 Insulin aspart 100 unit/mL (3 mL) subcutaneous insulin glargine (LANTUS, BASAGLAR) 100 unit/mL (3 mL) insulin pen Inject 55 Units under the skin in the morning and 55 Units before bedtime. ipratropium-albuteroL (DUO-NEB) 0.5 mg-3 mg(2.5 mg base)/3 mL nebulizer as needed. lisinopriL (PRINIVIL,ZESTRIL) 10 mg tablet daily. meloxicam (MOBIC) 15 mg tablet daily. omeprazole (PriLOSEC) 20 mg capsule as needed. ondansetron (ZOFRAN) 4 mg tablet as needed. potassium chloride (KLOR-CON SPRINKLE) 10 MEQ CR capsule Take 1 capsule (10 mEq total) by mouth in the morning. pregabalin (LYRICA) 300 mg capsule 2 (two) times a day. vit 10-iron fum-folic 65-1 mg tablet Take 1 tablet by mouth daily. 90 tablet 3 simvastatin (ZOCOR) 10 mg tablet Take 1 tablet (10 mg total) by mouth in the morning. TRULICITY 1.5 mg/0.5 mL pen injector inject one pen weekly baclofen (LIORESAL) 10 mg tablet Take 10 mg by mouth nightly. (Patient not taking: Reported on 06/19/2024) No current facility-administered medications on file prior to visit. Past Medical History: Past Medical History: Diagnosis Date Asthma Cellulitis of left leg COPD (chronic obstructive pulmonary disease) ([facility]) Depression Diabetes mellitus ([facility]) Diabetes mellitus with neuropathy ([facility]) Edema GERD (gastroesophageal reflux disease) Hypertension Morbid obesity ([facility]) Morbid obesity ([facility]) Pneumonia Past Surgical History: Past Surgical History: Procedure Laterality Date CHOLECYSTECTOMY CORRECTION HAMMER TOE FOOT SURGERY Left HYSTERECTOMY PARTIAL TOE AMPUTATION Social and Family History: Social History Socioeconomic History Marital status: Spouse name: Not on file Number of children: Not on file Years of education: Not on file Highest education level: Not on file Occupational History Not on file Tobacco Use Smoking status: Every Day Current packs/day: 0.50 Types: Cigarettes Smokeless tobacco: Never Substance and Sexual Activity Alcohol use: Yes Comment: RARE Drug use: No Sexual activity: Not on file Other Topics Concern Caffeine Use Yes Social History Narrative Not on file Social Drivers of Health Financial Resource Strain: Low Risk (07/10/2023) Received from [facility] Overall Financial Resource Strain (CARDIA) Difficulty of Paying Living Expenses: Not hard at all Food Insecurity: No Food Insecurity (07/10/2023) Received from [facility] Hunger Vital Sign Worried About Running Out of Food in the Last Year: Never true Ran Out of Food in the Last Year: Never true Transportation Needs: No Transportation Needs (07/10/2023) Received from [facility] PRAPARE - Transportation Lack of Transportation (Medical): No Lack of Transportation (Non-Medical): No Physical Activity: Insufficiently Active (07/10/2023) Received from [facility] Exercise Vital Sign Days of Exercise per Week: 7 days Minutes of Exercise per Session: 10 min Stress: No Stress Concern Present (07/10/2023) Received from [facility] [employer] - Occupational Stress Questionnaire Feeling of Stress : Only a little Social Connections: Socially Integrated (07/10/2023) Received from [facility] Social Connection and Isolation Panel [NHANES] Frequency of Communication with Friends and Family: Twice a week Frequency of Social Gatherings with Friends and Family: Twice a week Attends [employer] Services: 1 to 4 times per year Active Member of Clubs or Organizations: Yes Attends Club or Organization Meetings: 1 to 4 times per year Marital Status: Interpersonal Safety: Not At Risk (07/10/2023) Received from [facility] Humiliation, Afraid, Rape, and Kick questionnaire Fear of Current or Ex-Partner: No Emotionally Abused: No Physically Abused: No Sexually Abused: No Housing Instability: Unknown (07/10/2023) Received from [facility] Housing Stability Vital Sign Unable to Pay for Housing in the Last Year: No Number of Places Lived in the Last Year: Not on file Unstable Housing in the Last Year: No Family History Problem Relation Age of Onset Heart disease Paternal Grandmother Stroke Paternal Grandmother Cancer Paternal Grandmother Cancer Paternal Grandfather Recent Labs: Recent and relative labs were reviewed and interpreted and contributed to the assessment and plan below. Vitals: BP 160/70 (BP Site: Right Arm, BP Postition: Sitting, BP CUFF SIZE: M (9-13 inches)) Pulse 78 Temp 36.7 C (98 F) (Temporal) Resp 20 Ht 170 cm (5' 6.93 ) Wt (!) 169.6 kg (374 lb) BMI 58.70 kg/m Body mass index is 58.7 kg/m . Physical Exam: Physical Exam Constitutional: Appearance: Normal appearance. HENT: Head: Normocephalic and atraumatic. Mouth/Throat: Mouth: Mucous membranes are moist. Eyes: Extraocular Movements: Extraocular movements intact. Pupils: Pupils are equal, round, and reactive to light. Cardiovascular: Rate and Rhythm: Normal rate and regular rhythm. Pulmonary: Effort: Pulmonary effort is normal. Breath sounds: Normal breath sounds. Abdominal: General: Abdomen is flat. Bowel sounds are normal. Palpations: Abdomen is soft. Musculoskeletal: General: Normal range of motion. Cervical back: Normal range of motion. Skin: General: Skin is warm and dry. Neurological: General: No focal deficit present. Mental Status: She is alert and oriented to person, place, and time. Mental status is at baseline. Psychiatric: Mood and Affect: Mood normal. Behavior: Behavior normal. Thought Content: Thought content normal. Judgment: Judgment normal. Recent testing: Assessment and Plan: Problem List BMI 50.0-59.9, adult ([facility]) - Primary Smoking Current Assessment & Plan Counseled on smoking cessation for at least 3 minutes. She is willing to quit. Morbid obesity (CMS-HCC) Mitzi was seen today for non-par with [facility] dual complete without oon benefits- need i. Diagnoses and all orders for this visit: BMI 50.0-59.9, adult ([facility]) Morbid obesity ([facility]) Smoking Jonathan Hudson MD, SOPHIE, RPVI, FSVS, FACS [facility] This note was created with the assistance of a speech recognition program. While intending to generate a timely document that accurately reflects the content of the visit, no guarantee can be provided that every grammatical or spelling mistake has been or will be identified or corrected. Thank you for your understanding. documented in this encounter [facility] 06-13-2024 Miscellaneous Notes LMVM for patient to bring insurance card to appt so we can see if we are able to see her or she can be proactive and call her insurance before her appt to make sure we are either in network or that she has out of network benefit. documented in this encounter [facility] 06-13-2024 Telephone encounter Note LMVM for patient to bring insurance card to appt so we can see if we are able to see her or she can be proactive and call her insurance before her appt to make sure we are either in network or that she has out of network benefit. [facility] 06-11-2024 Hospital Discharge instructions Patient Education 06/11/2024 10:44:08 Steps to Quit Smoking Steps to Quit Smoking Smoking tobacco is the leading cause of preventable . It can affect almost every organ in the body. Smoking puts you and those around you at risk for developing many serious chronic diseases. Quitting smoking can be very challenging. Do not get discouraged if you are not successful the first time. Some people need to make many attempts to quit before they achieve long-term success. Do your best to stick to your quit plan, and talk with your health care provider if you have any questions or concerns. How do I get ready to quit? When you decide to quit smoking, create a plan to help you succeed. Before you quit: Pick a date to quit. Set a date within the next 2 weeks to give you time to prepare. Write down the reasons why you are quitting. Keep this list in places where you will see it often. Tell your family, friends, and co-workers that you are quitting. Support from people you are close to can make quitting easier. Talk with your health care provider about your options for quitting smoking. Find out what treatment options are covered by your health insurance. Identify people, places, things, and activities that make you want to smoke (triggers). Avoid them. What first steps can I take to quit smoking? Throw away all cigarettes at home, at work, and in your car. Throw away smoking accessories, such as ashtrays and lighters. Clean your car. Make sure to empty the ashtray. Clean your home, including curtains and carpets. What strategies can I use to quit smoking? Talk with your health care provider about combining strategies, such as taking medicines while you are also receiving in-person counseling. Using these two strategies together makes you more likely to succeed in quitting than if you used either strategy on its own. If you are or , talk with your health care provider about finding counseling or other support strategies to quit smoking. Do not take medicine to help you quit smoking unless your health care provider tells you to. Quit right away Quit smoking completely, instead of gradually reducing how much you smoke over a period of time. Stopping smoking right away may be more successful than gradually quitting. Attend in-person counseling to help you build problem-solving skills. You are more likely to succeed in quitting if you attend counseling sessions regularly. Even short sessions of 10 minutes can be effective. Take medicine You may take medicines to help you quit smoking. Some medicines require a prescription. You can also purchase egab-yey-zgnuhke medicines. Medicines may have nicotine in them to replace the nicotine in cigarettes. Medicines may: Help to stop cravings. Help to relieve withdrawal symptoms. Your health care provider may recommend: Nicotine patches, gum, or lozenges. Nicotine inhalers or sprays. Non-nicotine medicine that you take by mouth. Find resources Find resources and support systems that can help you quit smoking and remain smoke-free after you quit. These resources are most helpful when you use them often. They include: Online chats with a counselor. Telephone quitlines. Printed self-help materials. Support groups or group counseling. Text messaging programs. Mobile phone apps or applications. Use apps that can help you stick to your quit plan by providing reminders, tips, and encouragement. Examples of free services include Quit Guide from the CDC and smokefree.gov What can I do to make it easier to quit? Reach out to your family and friends for support and encouragement. Call telephone quitlines, such as 4-299-VHZA-NOW, reach out to support groups, or work with a counselor for support. Ask people who smoke to avoid smoking around you. Avoid places that trigger you to smoke, such as bars, parties, or smoke-break areas at work. Spend time with people who do not smoke. Lessen the stress in your life. Stress can be a smoking trigger for some people. To lessen stress, try: ?Exercising regularly. ?Doing deep-breathing exercises. ?Doing yoga. ?Meditating. What benefits will I see if I quit smoking? Over time, you should start to see positive results, such as: Improved sense of smell and taste. Decreased coughing and sore throat. Slower heart rate. Lower blood pressure. Clearer and healthier skin. The ability to breathe more easily. Fewer sick days. Summary Quitting smoking can be very challenging. Do not get discouraged if you are not successful the first time. Some people need to make many attempts to quit before they achieve long-term success. When you decide to quit smoking, create a plan to help you succeed. Quit smoking right away, not slowly over a period of time. Find resources and support systems that can help you quit smoking and remain smoke-free after you quit. This information is not intended to replace advice given to you by your health care provider. Make sure you discuss any questions you have with your health care provider. Document Revised: 06/16/2022 Document Reviewed: 06/16/2022 [employer] Patient Education 2023 [employer] 06/11/2024 10:39:22 Dietary Guidelines to Help Prevent Kidney Stones Dietary Guidelines to Help Prevent Kidney Stones Kidney stones are deposits of minerals and salts that form inside your kidneys. Your risk of developing kidney stones may be greater depending on your diet, your lifestyle, the medicines you take, and whether you have certain medical conditions. Most people can lower their risks of developing kidney stones by following these dietary guidelines. Your dietitian may give you more specific [...] include: ?8 oz (237 mL) of milk, hfxistu-iynhwygqrmmy-yajmr milk, and calcium-fortifiedfruit juice. Calcium-fortified means that [...] table and allow each person to add their own salt to taste. Use vegetable protein, [...] fish, or seafood. ?When you prepare animal proteins, cut pieces into small portion sizes. For [...] ?Have two kinds of vegetables at dinner. You may be told to limit foods that are high in a substance called oxalate. These include: ?Spinach (cooked), rhubarb, beets, sweet potatoes, and [place] chard. ?Peanuts. ?Potato chips, guamanian fries, and baked potatoes with skin on. ?Nuts and nut products. ?Chocolate. If you regularly take a diuretic medicine, make sure to eat at least 1 or 2 servings of fruits or vegetables that are high in potassium each day. These include: ?Avocado. ?Banana. ?[place], prune, carrot, or tomato juice. ?Baked potato. ?Cabbage. ?Beans and split peas. Lifestyle Drink enough fluid to keep your urine pale yellow. This is the most important thing you can do. Spread your fluid intake throughout the day. If you drink alcohol: ?Limit how much you have to: ?0 1 drink a day for women who are not . ?0 2 drinks a day for men. ?Know how much alcohol is in your drink. [...] provider and dietitian about taking daily supplements. Depending on your health and the cause of your kidney stones, you may be told: ?Do not take high-dose supplements of vitamin C (1,000 mg a day or more). ?To take a calcium supplement. ?To take a daily probiotic supplement. ?To take other supplements such as magnesium, fish oil, or vitamin B6. Take ikow-iwv-saflfra and prescription medicines only as told by [...] sausages, meat loaves, and hot dogs. Dairy Cheeses. Beverages Regular soft drinks. Regular vegetable juice. [...] with your health care provider. Document Revised: 10/05/2022 Document Reviewed: 10/05/2022 [employer] Patient Education 2023 [employer] Follow Up Care 05/06/2024 08:24:56 With:REGLA PHIPPS, Elbert Joya, URL Address: [facility] [address], [place] [address]- When: Unknown [facility] 05-27-2024 History of Present illness Narrative Mitzi Macias is a 53 y.o. female Rain Souza MD presents with chief complaint of Diabetes and Follow-up HPI: IM 05/2024 follow up visit on 05/27/2024 , A1c in the office 9.2 , bg 158, on lantus 58 units, lispro 8-10-12 units plus ISS, mounjaro 15 mg weekly, farxia 5 mg daily. IM 02/2024 follow up visit on 02/14/2024 , A1c in the office 9.7 , bg 92, on lantus 58 units, lispro 8-10-12 units plus ISS, mounjaro 10 mg weekly, farxia 5 mg daily. IM 11/2023 follow up visit on 11/19/2023 , A1c in the office 8.9, bg 198, on lantus 58 units bid, lispro 8-10-12 units plus ISS, mounjaro 10 mg weekly, farxia 5 mg/ lab on 11/2023 TC 146, TG 127, HDL 54, VIT D 7.3 IM 08/2023 follow up visit on 08/20/2023 , A1c in the office 8.7 , bg 131, on lantus 58 units bid, lispro 8-10-12 units plus ISS, Trulicity 4.5 mg weekly ( will not be covered), farxia 5 mg by PCP. IM 05/2023 follow up visit on 05/21/2023 , A1c in the office 9.5, bg 84, on lantus 58 units bid, lispro 8-10-12 units plus ISS, Trulicity 4.5 mg weekly, farxia 5 mg by PCP. IM 01/2023 follow up visit on 01/15/2023 , A1c in the office 8.5 , bg 153, on lantus 58 units bid, lispro 8-10-12 units plus ISS, Trulicity 4.5 mg weekly. IM 09/2022 follow up visit on 09/25/2022 , A1c in the office 6.8 , bg 113, on lantus 58 units bid, lispro 8-10-12 units plus ISS, Trulicity 4.5 mg weekly. meter 91% IN GOOD RANGE, avg 143 IM 06/2022 follow up visit on 06/13/2022, A1c in the office 7.1 , bg 96, on lantus 58 units bid, lispro 8-10-12 units plus ISS, Trulicity 4.5 mg weekly. meter give us error during download IM 03/2022 follow up visit on 03/14/2022, A1c in the office 9.4, bg 142, on lantus 58 units bid, lispro 8-10-12 units plus ISS, Trulicity 4.5 mg weekly. lab on 02/2022 TC 159,HDL 40 ,TG 186, LDL 81, C PEPTIDE 3.1, VIT D 4, AL/CR 239. saw Dr. Cortés for albuminuria, saw urologist for adrenal issues ?. IM 11/2021 follow up visit on 11/23/2021 unable to do A1c in the office bg 231, on lantus 58 units bid, N 8-10-12 units plus ISS, Trulicity 4.5 mg weekly HPI: 07/2020 New patient sent from Mckayla Blas CNP, for uncontrolled diabetes. A1c 10.3. She has had diabetes since 2007. Currently, she is on Lantus 58 twice a day and lispro insulin 5 units plus scale, on average 6 to 7 units twice a day and plus Trulicity 3 mg once weekly. Kidney function within normal limits. Total cholesterol 116, triglycerides 183, HDL 31, LDL 48 and hemoglobin 51. She is in wheelchair, with her. She has wound care, following with wound care, and she has open ulcer in her lower [place]jada. SUBJECTIVE: MEDICATIONS: Current Outpatient Medications Medication Instructions Accu-Chek Guide test strip 1 each, 4 times daily albuterol HFA 90 mcg/act inhaler 2 puffs, Every 4 hours PRN albuterol 2.5 mg, Every 6 hours PRN amitriptyline (ELAVIL) 25 mg, Oral, Nightly aspirin 81 mg, Oral, Daily cetirizine (ZYRTEC) 10 mg, Oral, Daily dapagliflozin (FARXIGA) 10 mg, Oral, Daily diclofenac (VOLTAREN) 75 mg, 2 times daily DULoxetine (CYMBALTA) 60 mg, Oral, 2 times daily, Do not crush or chew. ergocalciferol (Vitamin D2) 1.25 MG (30184 UT) capsule TAKE 1 CAPSULE BY MOUTH ONE TIME PER WEEK furosemide (LASIX) 20 mg, Oral, Daily PRN, Take in the afternoon as needed furosemide (LASIX) 40 mg, Oral, Daily Glucose Blood (ACCU-CHEK JAQUI PLUS ) 4 times daily hydrALAZINE (APRESOLINE) 25 mg, Oral, 2 times daily HYDROcodone-acetaminophen ([place]) 5-325 MG tablet 1 tablet, 3 times daily PRN insulin glargine (LANTUS) 58 Units, 2 times daily Insulin Lispro (HUMALOG KWIKPEN SC) 3 times daily before meals ipratropium-albuterol (Duo-Neb) 0.5-2.5 mg/3 mL nebulizer solution Daily PRN liraglutide (Victoza) 18 MG/3ML injection Daily lisinopril 20 mg, Oral, Daily Mounjaro 15 mg, Every 7 days nortriptyline (Pamelor) 50 MG capsule 1 capsule, Daily omeprazole (PRILOSEC) 20 mg, Oral, Daily before breakfast oxygen (O2) 2 L/min, Continuous pen needle 32G x 5 mm misc 5 each, Daily potassium chloride ER (Micro-K) 10 MEQ ER capsule 10 mEq, Oral, Daily, Take 1 capsule (10 mEq) by mouth in the morning. pregabalin (LYRICA) 300 mg, Oral, 2 times daily Roflumilast 500 MCG tablet 1 tablet, Oral, Daily simvastatin (ZOCOR) 10 mg, Oral, Nightly Ubrelvy 100 mg, Daily PRN Varenicline Tartrate, Starter, 0.5 MG X 11 & 1 MG X 42 tablet therapy pack TAKED DIRECTED BY MOUTH TWICE DAILY ALLERGIES: No Known Allergies Past Medical History: Diagnosis Date Abnormal chest CT Albuminuria 09/17/2023 Angiomyolipoma Anxiety and depression ([facility] 07/10/2023 Asthma ([facility] 07/10/2023 Body mass index (BMI) 50.0-59.9, adult ([facility]) Cellulitis of left lower extremity Cervical cancer ([facility] 09/17/2023 Chronic pain of both knees 09/17/2023 COPD (chronic obstructive pulmonary disease) ([facility] 07/10/2023 COPD exacerbation ([facility] 09/17/2023 Decreased functional mobility 09/17/2023 Diabetic neuropathy ([facility] 07/10/2023 Dietary counseling and surveillance Edema 07/10/2023 Elevated sed rate Elevated WBC count GERD (gastroesophageal reflux disease) 09/17/2023 Hyperlipidemia ([facility] 09/17/2023 Hypertension ([facility]) 07/10/2023 Insomnia 09/17/2023 jail (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 ([facility]) Lower extremity edema 09/17/2023 Morbid (severe) obesity due to excess calories ([facility]) Obstructive sleep apnea 07/10/2023 PAD (peripheral artery disease) ([facility]) 09/17/2023 Pancreatitis 09/17/2023 Pneumonia 09/17/2023 Proteinuria, unspecified Pulmonary hypertension ([facility]) 09/17/2023 Radiculopathy, lumbar region 09/17/2023 Tobacco user 09/17/2023 Type 2 diabetes mellitus with complication, with long-term current use of insulin ([facility]) 07/10/2023 Unilateral primary osteoarthritis, right hip 09/17/2023 Vaginal yeast infection 08/17/2023 Venous insufficiency 09/17/2023 Vitamin D deficiency, unspecified Past Surgical History: Procedure Laterality Date CERVIX SURGERY removal of pre cancer cell from cervix CHOLECYSTECTOMY 2019 HYSTERECTOMY PARTIAL HYSTERECTOMY 2003 TOE SURGERY Left Ulcer debridement REVIEW OF SYMPTOMS: 14 POINT OF SYSTEM REVIEWED AND NEGATIVE OBJECTIVE: Constitutional: Afebrile @ home; no weakness or night sweats SKIN: No change in skin color; no itching, rash or lesions; no hair loss; HEENT: No HAs or injury; no dizziness; No difficulty with vision; no eye pain, discharge or lesions; no hearing loss or difficulty; no nasal discharge, NECK: No pain, limitation of motion, lumps or swollen glands RESP: No cough, wheezing or difficulty breathing. No CP with breathing; CARDIO: No CP , SOB or fatigue, No edema, palpitations or dyspnea with exertion GI: No N/V/D or abd. pain; good appetite with no recent change. No heart burn, liver or gallbladder disease; no rectal bleeding or pain : No urinary pain , frequency or odor. MUSCULOSKELETAL: No muscle pain or cramps; no extremity weakness.No joint pain, stiffness, swelling or limitation of movement NEUROLOGY: No H/O seizures, stroke or fainting. No weakness, tremors. Hematology: No bleeding problems or excessive bruising ENDOCRINE: No increase in hunger, thirst or urination; admits compliance to medical management plan Feet: numbness tingling yes , ulcers or skin break no Lab Results Component Value Date HGBA1C 9.2 05/27/2024 Lab Results Component Value Date GLU 158 05/27/2024 GLU 137 (H) 11/12/2023 Visit Vitals BP 128/66 Pulse 72 Resp 16 Ht 5' 7 Wt 362 lb BMI 56.70 kg/m Smoking Status Every Day BSA 2.78 m ASSESSMENT AND PLAN: Assessment/Plan Diagnoses and all orders for this visit: Type 2 diabetes mellitus with hyperglycemia, with long-term current use of insulin ([facility]) - POCT glucose manually resulted - POCT glycosylated hemoglobin (Hb A1C) docked device We will continue with Lantus 58, lispro 02/16/12 according to meal size, Mounjaro 15 mg once weekly, Farxiga 5 mg once a day Encounter for dietary consultation Vitamin D deficiency Primary hypertension ([facility]) To follow with her PCP Insulin long-term use ([facility]) Hyperlipemia, mixed ([facility]) Continue with Zocor 10 mg once daily Microalbuminuria Class 3 severe obesity due to excess calories with serious comorbidity and body mass index (BMI) of 50.0 to 59.9 in adult ([facility]) Diet and exercise reviewed with the patient Follow up in about 3 months (around 08/27/2024). documented in this encounter [facility] 04-14-2024 History of Present illness Narrative Associated Problem(s): Hyperpigmentation of skin Will try cerevue ointment to see if helps Associated Problem(s): Tobacco user Urged to quit Associated Problem(s): Type 2 diabetes mellitus with complication, with long-term current use of insulin ([facility]) Check blood sugars daily, follow w [...] with dr Yañez Associated Problem(s): Diabetic neuropathy ([facility]) Continue with tristan EAST reviewed Fu [...] blood glucose range is 130-140 mg/dl. An TILA inhibitor/angiotensin II receptor eun is being taken. She does not see a inspector firearms.Eye exam is not current. Hypertension This is [...] treatments include direct vasodilators, beta blockers and TILA inhibitors. The current treatment provides significant improvement. [...] or chew. ergocalciferol (Vitamin D2) 1.25 MG (06669 UT) capsule TAKE 1 CAPSULE BY MOUTH ONE TIME PER WEEK furosemide (LASIX) 20 mg, Oral, Daily PRN, Take in the afternoon as needed furosemide (LASIX) 40 mg, Oral, Daily Glucose Blood (ACCU-CHEK JAQUI PLUS ) 4 times daily HumaLOG KWIKPEN 100 UNIT/ML injection Subcutaneous hydrALAZINE (APRESOLINE) 25 mg, Oral, 2 times daily HYDROcodone-acetaminophen ([place]) 5-325 MG tablet 1 tablet, 3 times [...] CT Albuminuria 09/17/2023 Angiomyolipoma Anxiety and depression ([facility]) 07/10/2023 Asthma ([facility]) 07/10/2023 Cellulitis of left lower extremity Cervical cancer ([facility]) 09/17/2023 Chronic pain of both knees 09/17/2023 COPD (chronic obstructive pulmonary disease) ([facility]) 07/10/2023 COPD exacerbation ([facility]) 09/17/2023 Decreased functional mobility 09/17/2023 Diabetic neuropathy ([facility]) 07/10/2023 Edema 07/10/2023 Elevated sed rate Elevated WBC count GERD (gastroesophageal reflux disease) 09/17/2023 Hyperlipidemia ([facility]) 09/17/2023 Hypertension ([facility]) 07/10/2023 Insomnia 09/17/2023 Lower extremity edema 09/17/2023 Obstructive sleep apnea 07/10/2023 PAD (peripheral artery disease) ([facility]) 09/17/2023 Pancreatitis 09/17/2023 Pneumonia 09/17/2023 Pulmonary hypertension ([facility]) 09/17/2023 Radiculopathy, lumbar region 09/17/2023 Tobacco user 09/17/2023 Type 2 diabetes mellitus with complication, with long-term current use of insulin ([facility]) 07/10/2023 Unilateral primary osteoarthritis, right hip 09/17/2023 [...] List Items Addressed This Visit Diabetic neuropathy ([facility]) Continue with lyrica OARRS reviewed Fu in 3 months Relevant Medications pregabalin (Lyrica) 300 MG capsule COPD (chronic obstructive pulmonary disease) ([facility]) - Primary Stable at this time, no changes in meds Encouraged smoking cessation Cont with dr Yañez Hypertension ([facility]) Stable on current meds Refill meds Relevant Medications hydrALAZINE (Apresoline) 25 MG tablet lisinopril 20 MG tablet Type 2 diabetes mellitus with complication, with long-term current use of insulin ([facility]) Check blood sugars daily, follow w [...] 81 MG chewable tablet Anxiety and depression ([facility]) Relevant Medications DULoxetine (Cymbalta) [address] capsule Bilateral lower extremity edema Stable on current meds Insomnia Relevant Medications amitriptyline (Elavil) 25 MG tablet Tobacco user Urged to quit Non-seasonal allergic rhinitis Relevant Medications cetirizine (ZyrTEC) 10 MG tablet Hyperpigmentation of skin Will try cerevue ointment to see if helps Other Visit Diagnoses Type 2 diabetes mellitus with unspecified complications ([facility]) Relevant Medications dapagliflozin (Farxiga) 10 MG Gastro-esophageal reflux disease without esophagitis Relevant Medications omeprazole (PriLOSEC) [address] capsule Edema, unspecified Relevant Medications potassium chloride ER (Micro-K) 10 MEQ ER capsule Edema Relevant Medications potassium chloride ER (Micro-K) 10 MEQ ER capsule Chronic obstructive pulmonary disease, unspecified ([facility]) Relevant Medications Roflumilast 500 MCG tablet documented in this encounter [facility] 11-14-2023 Note [facility] Subjective Mitzi Macias is a 53 y.o. year old female being seen as new patient to establish care. Ref from Mckayla Blas CNP for pulmonary hypertension. She had echo in Aug 2023 while inpatient at [facility] for pneumonia and COPD exacerbation. [...] was admitted in early 2023 to the [facility] with hypoxemia and treated as [...] wheelchair Skin: Gene (more content not included)... [facility] 11-15-2022 Hospital Discharge instructions Patient Education [...] include: ?8 oz (237 mL) of milk, ifwlbmq-ywhcirsrasej-psqzw milk, and calcium-fortifiedfruit juice. Calcium-fortified means that [...] rhubarb, beets, sweet potatoes, and [place] chard. ?Peanuts. ?Potato chips, guamanian fries, and baked potatoes with skin on. ?Nuts and nut products. ?Chocolate. If you regularly take a diuretic medicine, make sure to eat at least 1 or 2 servings of fruits or vegetables that are high in potassium each day. These include: ?Avocado. ?Banana. ?[place], prune, carrot, or tomato juice. ?Baked potato. [...] magnesium, fish oil, or vitamin B6. Take eugj-lqp-mavyonc and prescription medicines only as told by [...] provider. Document Revised: 03/06/2022 Document Reviewed: 03/06/2022 [employer] Patient Education 2022 [employer] Follow Up Care 02/06/2022 11:44:09 With:SILVIA HOWELL, SARAH Webb, URL Address: [address] [place] [address] When: Unknown [facility] 08-24-2022 Note CONSULTATION CONSULTATION DATE: 08/24/2022 [...] We maintain her on pain medication with [place] 5/325 t.i.d., diclofenac 75 mg b.i.d. Her [...] her at this point. A refill for [place] 5/325 t.i.d. and diclofenac 75 mg b.i.d. will be sent to the pharmacy. Vitamin compliance and nutrition were discussed and enforced. I did highly encourage her to use exercise bands to increase the strength in her lower extremities. We will see her in three months' time, unless otherwise indicated, and patient agrees. [facility] 05-11-2022 Note CONSULTATION CONSULTATION DATE: [...] 150. Medications include Lyrica 300 mg b.i.d., [place] 5/325 t.i.d., diclofenac 75 mg b.i.d. and [...] her medications today. We will maintain Lyrica, [place] and diclofenac at the set dose and frequency. We will follow-up in the clinic in three months' time. The patient is in agreement to this. Vitamin importance and nutrition were discussed. [facility] 04-20-2022 Note CONSULTATION CONSULTATION DATE: [...] medications include Tylenol, Lyrica 300 mg b.i.d., [place] 5/325 t.i.d., amitriptyline, diclofenac and duloxetine. Patient's [...] be followed up in the clinic. [facility] 03-08-2022 Evaluation note Encounter Date [...] to the [facility]. Thrombocytopenia is unclear etiology. [facility] 08-15-2022 Evaluation note* Encounter Date Diagnosis [...] follow with Dr. Souza and Dr. Arauz. [facility] 08-01-2022 Hospital Discharge instructions Patient Education [...] fried and sweet foods. General instructions Take kdzx-urz-rtqtzeg and prescription medicines only as told by [...] 04/21/2010 Document Revised: 10/16/2019 Document Reviewed: 07/11/2018 [employer] Patient Education 2020 [employer] Follow Up Care 01/05/2022 12:02:03 With:REGAL PHIPPS, Elbert Joya, URL Address: [facility] [address], [place] [phone] When:Within 6 Month(s) Comments:w/ repeat CT A/P [facility] 07-14-2022 NoteCONSULTATION PROCEDURE DATE: 01/19/2022 PRE [...] the patient tolerated it well. [facility] Signed and Approved by: GIL VALENZUELA . 01/27/2022 14:15:00[facility]07-14-2022 NoteCONSULTATION CONSULTATION DATE: 01/19/2022 This [...] today. Medications include Lyrica 300 mg b.i.d., [place] 5/325 t.i.d., diclofenac 75 mg b.i.d. and [...] months' time unless otherwise indicated. [facility] Signed and Approved by: GIL VALENZUELA . 01/27/2022 14:[facility]00[facility] Future Appointments Appointment Date:08/14/2022 09:15:00 AM Scheduled Provider:Elbert ARAUZ MD Location:[facility] Appointment Type:URO Office Visit [facility] evaluation + Plan note Future Appointments Appointment Date:04/22/2024 10:00:00 AM Scheduled Provider:SARAH VEGA PA-C Location:[facility] Appointment Type:URO Office Visit [facility] evaluation note* Diagnosis Type 2 diabetes mellitus with unspecified complications ([facility]) Edema, unspecified Edema [facility] Diagnosis Vaginal yeast infection- Primary Candidiasis of vulva and vagina documented [facility]* Diagnosis Primary hypertension ([facility])- Primary Unspecified essential hypertension Insomnia Insomnia, unspecified Type 2 diabetes mellitus with complication, with long-term current use of insulin ([facility]) Non-seasonal allergic rhinitis, unspecified trigger Type 2 diabetes mellitus with unspecified complications ([facility]) Anxiety and depression ([facility]) Gastro-esophageal reflux disease without esophagitis Edema, unspecified Edema Diabetic polyneuropathy associated with type 2 diabetes mellitus ([facility]) Chronic obstructive pulmonary disease, unspecified (CMS/HCC) Pulmonary emphysema, unspecified emphysema type (CMS/HCC) Bilateral lower extremity edema Tobacco user Tobacco use disorder Hyperpigmentation of skin Other dyschromia [facility]* Diagnosis Obstructive sleep apnea- Primary Obstructive sleep apnea (adult) (pediatric) Pulmonary emphysema, unspecified emphysema type (CMS/HCC) Primary hypertension (CMS/HCC) Unspecified essential hypertension Type 2 diabetes mellitus with complication, with long-term current use of insulin ([facility]) Anxiety and depression (CMS/HCC) Bilateral lower extremity edema Pulmonary emphysema, unspecified emphysema type (CMS/HCC)- Primary Primary hypertension (CMS/HCC) Unspecified essential hypertension Class 3 severe obesity with serious comorbidity and body mass index (BMI) of 50.0 to 59.9 in adult, unspecified obesity type (CMS/HCC) Obstructive sleep apnea Obstructive sleep apnea (adult) (pediatric) Pulmonary hypertension (CMS/HCC) Other chronic pulmonary heart diseases Tobacco user Tobacco use disorder Cardiomegaly Primary hypertension ([facility])- Primary Unspecified essential hypertension Gastroesophageal reflux disease, unspecified whether esophagitis present Type 2 diabetes mellitus with complication, with long-term current use of insulin (CMS/HCC) Mixed hyperlipidemia (CMS/HCC) Mixed hyperlipidemia Tobacco user Tobacco use disorder Encounter for screening mammogram for malignant neoplasm of breast Chronic obstructive pulmonary disease, unspecified (CMS/HCC) Other specified chronic obstructive pulmonary disease (CMS/HCC) Anxiety and depression (CMS/HCC) Edema, unspecified Edema Hyperlipidemia, unspecified (CMS/HCC) Diabetic polyneuropathy associated with type 2 diabetes mellitus (CMS/HCC) Gout, unspecified cause, unspecified chronicity, unspecified site Non-seasonal allergic rhinitis, unspecified trigger Bilateral lower extremity edema COPD exacerbation (CMS/HCC) Obstructive chronic bronchitis with exacerbation Pulmonary emphysema, unspecified emphysema type (CMS/HCC) Venous insufficiency Unspecified venous (peripheral) insufficiency Candidiasis of breast COPD exacerbation (CMS/HCC)- Primary Obstructive chronic bronchitis with exacerbation Pulmonary hypertension (CMS/HCC) Other chronic pulmonary heart diseases Class 3 severe obesity with serious comorbidity and body mass index (BMI) of 50.0 to 59.9 in adult, unspecified obesity type ([facility]) Encounter for subsequent annual wellness visit (AWV) in Medicare patient- Primary Type 2 diabetes mellitus with unspecified complications (CMS/HCC) Pulmonary emphysema, unspecified emphysema type (CMS/HCC) Moderate persistent asthma without complication (CMS/HCC) Primary hypertension ([facility]) Unspecified essential hypertension Type 2 diabetes mellitus with complication, with long-term current use of insulin ([facility]) Class 3 severe obesity with serious comorbidity and body mass index (BMI) of 50.0 to 59.9 in adult, unspecified obesity type (CMS/HCC) Tobacco user Tobacco use disorder Other headache syndrome Malignant neoplasm of cervix uteri, unspecified (CMS/HCC) Other specified disorders of adrenal gland (CMS/HCC) Major depressive disorder, single episode, mild (HCC) (CMS/HCC) Major depressive disorder, single episode, mild 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 exposed (CMS/HCC) Chronic respiratory failure, unspecified whether with hypoxia or hypercapnia (CMS/HCC) Disorder of adrenal gland, unspecified (CMS/HCC) Non-pressure chronic ulcer of other part of right lower leg limited to breakdown of skin (CMS/HCC) Non-recurrent acute suppurative otitis media of left ear without spontaneous rupture of tympanic membrane Primary hypertension (CMS/HCC)- Primary Unspecified essential hypertension Insomnia Insomnia, unspecified Type 2 diabetes mellitus with complication, with long-term current use of insulin ([facility]) Non-seasonal allergic rhinitis, unspecified trigger Type 2 diabetes mellitus with unspecified complications ([facility]) Anxiety and depression ([facility]) Gastro-esophageal reflux disease without esophagitis Edema, unspecified Edema Diabetic polyneuropathy associated with type 2 diabetes mellitus ([facility]) Chronic obstructive pulmonary disease, unspecified ([facility]) Pulmonary emphysema, unspecified emphysema type ([facility]) Bilateral lower extremity edema Tobacco user Tobacco use disorder Hyperpigmentation of skin Other dyschromia Type 2 diabetes mellitus with hyperglycemia, with long-term current use of insulin ([facility])- Primary Encounter for dietary consultation Vitamin D deficiency Primary hypertension ([facility]) Unspecified essential hypertension Insulin long-term use ([facility]) Encounter for long-term (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 Hyperlipemia, mixed ([facility]) Mixed hyperlipidemia Microalbuminuria Proteinuria Class 3 severe obesity due to excess calories with serious comorbidity and body mass index (BMI) of 50.0 to 59.9 in adult ([facility]) documented in this encounter [facility]* Diagnosis BMI 50.0-59.9, adult ([facility])- Primary Morbid obesity ([facility]) Morbid obesity Smoking Tobacco use disorder [facility] Diagnosis Hyperlipidemia, unspecified ([facility]) Bilateral lower extremity edema [facility] Diagnosis Vitamin D deficiency, unspecified documented [facility]* Diagnosis Obstructive sleep apnea- Primary Obstructive sleep apnea (adult) (pediatric) Pulmonary emphysema, unspecified emphysema type ([facility]) Primary hypertension ([facility]) Unspecified essential hypertension Type 2 diabetes mellitus with complication, with long-term current use of insulin ([facility]) Anxiety and depression ([facility]) Bilateral lower extremity edema Pulmonary emphysema, unspecified emphysema type ([facility])- Primary Primary hypertension ([facility]) Unspecified essential hypertension Class 3 severe obesity with serious comorbidity and body mass index (BMI) of 50.0 to 59.9 in adult, unspecified obesity type ([facility]) Obstructive sleep apnea Obstructive sleep apnea (adult) (pediatric) Pulmonary hypertension ([facility]) Other chronic pulmonary heart diseases Tobacco user Tobacco use disorder Cardiomegaly Primary hypertension ([facility])- Primary Unspecified essential hypertension Gastroesophageal reflux disease, unspecified whether esophagitis present Type 2 diabetes mellitus with complication, with long-term current use of insulin (CMS/HCC) Mixed hyperlipidemia (CMS/HCC) Mixed hyperlipidemia Tobacco user Tobacco use disorder Encounter for screening mammogram for malignant neoplasm of breast Chronic obstructive pulmonary disease, unspecified (CMS/HCC) Other specified chronic obstructive pulmonary disease (CMS/HCC) Anxiety and depression (CMS/HCC) Edema, unspecified Edema Hyperlipidemia, unspecified (CMS/HCC) Diabetic polyneuropathy associated with type 2 diabetes mellitus ([facility]) Gout, unspecified cause, unspecified chronicity, unspecified site Non-seasonal allergic rhinitis, unspecified trigger Bilateral lower extremity edema COPD exacerbation (CMS/HCC) Obstructive chronic bronchitis with exacerbation Pulmonary emphysema, unspecified emphysema type (CMS/HCC) Venous insufficiency Unspecified venous (peripheral) insufficiency Candidiasis of breast COPD exacerbation ([facility])- Primary Obstructive chronic bronchitis with exacerbation Pulmonary hypertension (CMS/HCC) Other chronic pulmonary heart diseases Class 3 severe obesity with serious comorbidity and body mass index (BMI) of 50.0 to 59.9 in adult, unspecified obesity type ([facility]) Encounter for subsequent annual wellness visit (AWV) in Medicare patient- Primary Type 2 diabetes mellitus with unspecified complications ([facility]) Pulmonary emphysema, unspecified emphysema type ([facility]) Moderate persistent asthma without complication ([facility]) Primary hypertension ([facility]) Unspecified essential hypertension Type 2 diabetes mellitus with complication, with long-term current use of insulin ([facility]) Class 3 severe obesity with serious comorbidity and body mass index (BMI) of 50.0 to 59.9 in adult, unspecified obesity type ([facility]) Tobacco user Tobacco use disorder Other headache syndrome Malignant neoplasm of cervix uteri, unspecified (CMS/HCC) Other specified disorders of adrenal gland (CMS/HCC) Major depressive disorder, single episode, mild (HCC) (CMS/HCC) Major depressive disorder, single episode, mild 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 exposed ([facility]) Chronic respiratory failure, unspecified whether with hypoxia or hypercapnia (CMS/HCC) Disorder of adrenal gland, unspecified (CMS/HCC) Non-pressure chronic ulcer of other part of right lower leg limited to breakdown of skin (CMS/HCC) Non-recurrent acute suppurative otitis media of left ear without spontaneous rupture of tympanic membrane Primary hypertension ([facility])- Primary Unspecified essential hypertension Insomnia Insomnia, unspecified Type 2 diabetes mellitus with complication, with long-term current use of insulin ([facility]) Non-seasonal allergic rhinitis, unspecified trigger Type 2 diabetes mellitus with unspecified complications ([facility]) Anxiety and depression ([facility]) Gastro-esophageal reflux disease without esophagitis Edema, unspecified Edema Diabetic polyneuropathy associated with type 2 diabetes mellitus ([facility]) Chronic obstructive pulmonary disease, unspecified ([facility]) Pulmonary emphysema, unspecified emphysema type ([facility]) Bilateral lower extremity edema Tobacco user Tobacco use disorder Hyperpigmentation of skin Other dyschromia Bilateral lower extremity edema documented in this encounter [facility] HealthcareEvaluation note* Diagnosis Obstructive sleep apnea- Primary Obstructive sleep apnea (adult) (pediatric) Pulmonary emphysema, unspecified emphysema type ([facility]) Primary hypertension ([facility]) Unspecified essential hypertension Type 2 diabetes mellitus with complication, with long-term current use of insulin ([facility]) Anxiety and depression ([facility]) Bilateral lower extremity edema Pulmonary emphysema, unspecified emphysema type ([facility])- Primary Primary hypertension ([facility]) Unspecified essential hypertension Class 3 severe obesity with serious comorbidity and body mass index (BMI) of 50.0 to 59.9 in adult, unspecified obesity type ([facility]) Obstructive sleep apnea Obstructive sleep apnea (adult) (pediatric) Pulmonary hypertension ([facility]) Other chronic pulmonary heart diseases Tobacco user Tobacco use disorder Cardiomegaly Primary hypertension ([facility])- Primary Unspecified essential hypertension Gastroesophageal reflux disease, unspecified whether esophagitis present Type 2 diabetes mellitus with complication, with long-term current use of insulin ([facility]) Mixed hyperlipidemia ([facility]) Mixed hyperlipidemia Tobacco user Tobacco use disorder Encounter for screening mammogram for malignant neoplasm of breast Chronic obstructive pulmonary disease, unspecified ([facility]) Other specified chronic obstructive pulmonary disease ([facility]) Anxiety and depression ([facility]) Edema, unspecified Edema Hyperlipidemia, unspecified ([facility]) Diabetic polyneuropathy associated with type 2 diabetes mellitus ([facility]) Gout, unspecified cause, unspecified chronicity, unspecified site Non-seasonal allergic rhinitis, unspecified trigger Bilateral lower extremity edema COPD exacerbation ([facility]) Obstructive chronic bronchitis with exacerbation Pulmonary emphysema, unspecified emphysema type ([facility]/HCC) Venous insufficiency Unspecified venous (peripheral) insufficiency Candidiasis of breast COPD exacerbation (CMS/HCC)- Primary Obstructive chronic bronchitis with exacerbation Pulmonary hypertension (CMS/HCC) Other chronic pulmonary heart diseases Class 3 severe obesity with serious comorbidity and body mass index (BMI) of 50.0 to 59.9 in adult, unspecified obesity type (CMS/HCC) Encounter for subsequent annual wellness visit (AWV) in Medicare patient- Primary Type 2 diabetes mellitus with unspecified complications (CMS/HCC) Pulmonary emphysema, unspecified emphysema type (CMS/HCC) Moderate persistent asthma without complication (CMS/HCC) Primary hypertension (CMS/HCC) Unspecified essential hypertension Type 2 diabetes mellitus with complication, with long-term current use of insulin (CMS/HCC) Class 3 severe obesity with serious comorbidity and body mass index (BMI) of 50.0 to 59.9 in adult, unspecified obesity type (CMS/HCC) Tobacco user Tobacco use disorder Other headache syndrome Malignant neoplasm of cervix uteri, unspecified (CMS/HCC) Other specified disorders of adrenal gland (CMS/HCC) Major depressive disorder, single episode, mild (HCC) (CMS/HCC) Major depressive disorder, single episode, mild 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 exposed (CMS/HCC) Chronic respiratory failure, unspecified whether with hypoxia or hypercapnia (CMS/HCC) Disorder of adrenal gland, unspecified (CMS/HCC) Non-pressure chronic ulcer of other part of right lower leg limited to breakdown of skin (CMS/HCC) Non-recurrent acute suppurative otitis media of left ear without spontaneous rupture of tympanic membrane Primary hypertension (CMS/HCC)- Primary Unspecified essential hypertension [...] use disorder Hyperpigmentation of skin Other dyschromia Primary hypertension (CMS/HCC)- Primary Unspecified essential hypertension Diabetic polyneuropathy associated with type 2 diabetes mellitus (CMS/HCC) Pulmonary emphysema, unspecified emphysema type ([facility]) Critical limb ischemia of right lower extremity ([facility]) PAD (peripheral artery disease) ([facility]) Unspecified peripheral vascular disease Gastroesophageal reflux disease, unspecified whether esophagitis present Bilateral lower extremity edema Venous ulcer of right leg ([facility]) Type 2 diabetes mellitus with complication, with long-term current use of insulin ([facility]) Tobacco user Tobacco use disorder Encounter for smoking cessation counseling Kidney stone Calculus of kidney Adrenal mass 1 cm to 4 cm in diameter ([facility]) Radiculopathy, lumbar region Thoracic or lumbosacral neuritis or radiculitis, unspecified Non-seasonal allergic rhinitis, unspecified trigger Type 2 diabetes mellitus with unspecified complications ([facility]) documented in this encounter [facility] HealthcareHistory general [...] History sepsis 2011 Hospitalization History SEE ABOVE [facility] Other Hospital course Narrative No data available for this section [facility] InstructionsNot on filedocumented in this encounter [employer] SystemInstructionsNot on filedocumented in this encounter [employer] SystemProgress note No data available for this section [facility] reason for referral (narrative) , Referral to Dr. 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 Summary Purpose Family History No Family History Records FoundNo Family History Records FoundNo Family History Records FoundNo Family History Records Found No data available for this section No Family History Records FoundNo Family History Records Found Additional Source Comments INFORMATION SOURCE (unrecogn ized section and content) DATE CREATED AUTHOR 10/30/2019 [facility] DATE CREATED AUTHOR AUTHOR'S ORGANIZ ATION 09/15/2020 [facility] DATE CREATED AUTHOR AUTHOR'S ORGANIZ ATION 12/19/2022 [facility] DATE CREATED AUTHOR AUTHOR'S ORGANIZ ATION 06/03/2024 [facility] DATE CREATED AUTHOR AUTHOR'S ORGANIZ ATION 07/20/2024 [facility] DATE CREATED AUTHOR AUTHOR'S ORGANIZ ATION 08/10/2024 [facility] Care Team (unrecognized sect ion and content) Chemistry Technical Officer Relationship Specialty Start Date End Date Ty Amin MD PCP - General Family Medicine 01/05/23 Chemistry Technical Officer Relationship Specialty Start Date End Date Ty Amin MD PCP - General Family Medicine 01/05/23 Chemistry Technical Officer Relationship Specialty Start Date End Date Ty Amin MD [address] [place] [phone] PCP - General Family Medicine 09/20/23 Mckayla Blas NP [address] [place] [phone] PCP - [facility] 09/07/23 09/05/90 Mckayla Blas NP [address] [place] [address] Nurse Practitioner Family Medicine 09/20/23 Chemistry Technical Officer Relationship Specialty Start Date End Date Ty Amin MD [address] [place] [address] PCP - General Family Medicine 09/20/23 Mckayla Blas NP [address] [place] [phone] PCP - [facility] 09/07/23 09/05/90 Mckayla Blas NP [address] [place] [address] Nurse Practitioner Family Medicine 09/20/23 Chemistry Technical Officer Relationship Specialty Start Date End Date Ty Amin MD [address] [place] [phone] PCP - General Family Medicine 09/20/23 Mckayla Blas NP [address] [place] [address] [facility] - [facility] 09/07/23 09/05/90 Mckayla Blas NP [address] [place] [address] Nurse Practitioner Family Medicine 09/20/23 Chemistry Technical Officer Relationship Specialty Start Date End Date Ty Amin MD [address] [place] [phone] PCP - General Family Medicine 09/20/23 Mckayla Blas NP [address] [place] [address] PCP - [facility] 09/07/23 09/05/90 Mckayla Blas NP [address] [place] [address] Nurse Practitioner Family Medicine 09/20/23 Chemistry Technical Officer Relationship Specialty Start Date End Date Ty Amin MD [address] [place] [phone] PCP - General Family Medicine 09/20/23 Mckayla Blas NP [address] [place] [phone] PCP - [facility] 09/07/23 09/05/90 Mckayla Blas NP [address] [place] [address] Nurse Practitioner Family Medicine 09/20/23 Chemistry Technical Officer Relationship Specialty Start Date End Date Mckayla Blas, [employer]ATER VALVE MECHANIC[employer] FINISHING SUPERVISOR [address] [place] [address] PCP - General Nurse Practitioner 09/25/18 Chemistry Technical Officer Relationship Specialty Start Date End Date Mckayla Blas, WATER VALVE MECHANIC[employer]T FINISHING SUPERVISOR [address] [place] [address] PCP - General Nurse Practitioner 09/25/18 Chemistry Technical Officer Relationship Specialty Start Date End Date Ty Amin MD [address] [place] [address] PCP - General Family Medicine 09/20/23 Mckayla Blas NP [address] [place] [address] PCP - [facility] 09/07/23 09/05/90 Mckayla Blas NP [address] [place] [address] Nurse Practitioner Family Medicine 09/20/23 Chemistry Technical Officer Relationship Specialty Start Date End Date Ty Amin MD [address] [place] [address] PCP - General Family Medicine 09/20/23 Mckayla Blas NP [address] [place] [phone] PCP - [facility] 09/07/23 09/05/90 Mckayla Blas NP [address] [place] [address] Nurse Practitioner Family Medicine 09/20/23 Chemistry Technical Officer Relationship Specialty Start Date End Date Ty Amin MD [address] [place] [address] PCP - General Family Medicine 09/20/23 Mckayla Blas NP [address] [place] [address] PCP - [facility] 09/07/23 09/05/90 Mckayla Blas NP [address] [place] [address] Nurse Practitioner Family Medicine 09/20/23 Chemistry Technical Officer Relationship Specialty Start Date End Date Ty Amin MD [address] [place] [phone] PCP - General Family Medicine 09/20/23 Mckayla Blas NP [address] [place] [address] PCP - [facility] 09/07/23 09/05/90 Mckayla Blas NP [address] [place] [address] Nurse Practitioner Family Medicine 09/20/23 Chemistry Technical Officer Relationship Specialty Start Date End Date Ty Amin MD [address] [place] [phone] PCP - General Family Medicine 09/20/23 Mckayla Blas NP [address] [place] [phone] PCP - [facility] 09/07/23 09/05/90 Mckayla Blas NP [address] [place] [address] Nurse Practitioner Family Medicine 09/20/23 REASON FOR VISIT (unrecogniz ed section and content) Reason Comments Med Refill Reason Comments Diabetes Follow-up Reason Comments NON-PAR WITH [facility] DUAL COMPLE TE WITHOUT OON BENEFITS- NEED I Right lower leg open areas. Pain to open wounds 10/10 @ times some moterate serous drainage and redness noted to left loer leg FOR RECORDS PERTAINING TO PATIENTS WHO ARE [...] BE BASED ON THE PRIMARY CLINICAL RECORDS. [facility] [employer] [facility]. provides no warranty or guarantee of the accuracy or completeness of information in this document.
--- NOTE | 2024-08-13 10:34 | P.CN_ITS ---
Consult Note: HPI Data of Consult Patient: known to practice within the last 3 years Requesting Physician: Angela Cochran NP Primary Care Provider: Mckayla Blas NP Consult Narrative Reason for consult: f/u Narrative: Mitzi Macias a pleasant 53 year old female presents for evaluation and management of low back and right hip pain. Today pain /10. Describes it as an aching pain in low back, sharp in right hip, and right leg pain increased with standing, walking, transitioning, stairs. Tolerating current medication regimen well without side effects. Patient has a longstanding hx of low back and leg pain unresponsive to PT/HEP greater than 6 weeks, tylenol, ibuprofen/motrin/aleve, heat/ice, and tylenol. continues to have moderate to severe back and RLE pain. Pt is working on weight loss and smoking cessation. following with wound care for wound of RLE. cc:: CC: Angela Cochran NP Review of Systems ROS Status of ROS 10 or more systems reviewed and unremark able except as noted in history and below Musculoskeletal Reports: back pain, extremity pain and joint pain PFSH PFS Medical History COPD exacerbation ?J44.1 - Chronic obstructive pulmonary disease with (acute) exacerbation (ICD-10) Influenza A ?J10.1 - Influenza due to other identified influenza virus with other respiratory manifestations (ICD-10) Hypoxia ?R09.02 - Hypoxemia (ICD-10) Hypertension ?I10 - Essential (primary) hypertension (ICD-10) Obesity ?E66.9 - Obesity, unspecified (ICD-10) Amputation toe ?S98.139A - Complete traumatic amputation of one unspecified lesser toe, initial encounter (ICD-10) Neuropathy ?G62.9 - Polyneuropathy, unspecified (ICD-10) Acid reflux ?K21.9 - Gastro-esophageal reflux disease without esophagitis (ICD-10) Diabetes ?E11.9 - Type 2 diabetes mellitus without complications (ICD-10) COPD (chronic obstructive pulmonary disease) ?J44.9 - Chronic obstructive pulmonary disease, unspecified (ICD-10) Asthma ?J45.909 - Unspecified asthma, uncomplicated (ICD-10) High cholesterol ?E78.00 - Pure hypercholesterolemia, unspecified (ICD-10) Surgical History History of hammertoe correction ?Z98.890 - Other specified postprocedural states (ICD-10) ?Z87.39 - Personal history of other diseases of the musculoskeletal system and connective tissue (ICD-10) Hx of cholecystectomy ?Z90.49 - Acquired absence of other specified parts of digestive tract (ICD- 10) History of hysterectomy ?Z90.710 - Acquired absence of both cervix and uterus (ICD-10) Social History Within the past year, how often did you have a drink containing alcohol: never Score interpretation: A score less than 3 is consistent with normal alcohol consumption. Smoking status: Former smoker Highest level of school completed/degree received: Associate degree: occupational, technical, vocational program Meds Home Medications and Allergies Home Medications ?Medication ?Instructions ?Recorded ?Confirmed ?Type acetaminophen 500 mg capsule 1,000 mg PO Q6H PRN fever or pain 03/20/23 06/10/24 History amitriptyline 25 mg tablet 25 mg PO DAILY 03/20/23 06/10/24 History aspirin 81 mg tablet,delayed 81 mg PO DAILY 03/20/23 06/10/24 History release (Adult Aspirin Regimen) budesonide-formoterol HFA 160 2 inh inhalation BID 03/20/23 06/10/24 History mcg-4.5 mcg/actuation aerosol inhaler (Symbicort) furosemide 40 mg tablet 40 mg PO DAILY 03/20/23 06/10/24 History insulin aspart U-100 100 unit/mL 1 sliding scale dose subcut 03/20/23 06/10/24 History (3 mL) subcutaneous pen (Novolog USEASDIRECTD FlexPen U-100 Insulin aspart) insulin glargine 100 unit/mL 58 unit subcut BID 03/20/23 06/10/24 History subcutaneous solution (Lantus U-100 Insulin) lisinopril 20 mg tablet 20 mg PO DAILY 03/20/23 06/10/24 History omeprazole 20 mg capsule,delayed 20 mg PO DAILY 03/20/23 06/10/24 History release pregabalin 300 mg capsule 300 mg PO Q12H 03/20/23 06/10/24 History duloxetine 60 mg capsule,delayed 60 mg PO BID #60 caps 04/05/23 06/10/24 Rx release dapagliflozin propanediol 10 mg 10 mg PO .QD 09/10/23 06/10/24 History tablet ergocalciferol (vitamin D2) 1,250 50,000 unit PO QWEEK 09/10/23 06/10/24 History mcg (50,000 unit) capsule potassium chloride 10 mEq 10 meq PO .QD 09/10/23 06/10/24 History capsule,extended release simvastatin 10 mg tablet 10 mg PO QAM 09/10/23 06/10/24 History hydralazine 25 mg tablet 25 mg PO BID #60 tabs 09/13/23 06/10/24 Rx oseltamivir 75 mg capsule 75 mg PO BID #6 caps 09/13/23 06/10/24 Rx hydrocodone 5 mg-acetaminophen 325 1 tab PO TID PRN pain #90 tabs 05/06/24 06/10/24 Rx mg tablet hydrocodone 5 mg-acetaminophen 325 1 tab PO TID PRN pain #90 tabs 06/04/24 06/10/24 Rx mg tablet baclofen 10 mg tablet 10 mg PO TID 06/24/24 06/24/24 History hydrocodone 5 mg-acetaminophen 325 1 tab PO TID PRN pain #80 tabs 06/30/24 Rx mg tablet hydrocodone 5 mg-acetaminophen 325 1 tab PO TID PRN pain #80 tabs 08/04/24 Rx mg tablet Allergies Allergy/AdvReac Type Severity Reaction Status Date / Time No Known Drug Allergies Allergy Verified 06/10/24 08:21 Exam Constitutional Documenting provider has reviewed patient's vital signs: yes Common normals: no apparent distress, oriented x3, healthy appearing, alert and well nourished General appearance: cooperative [facility] [place] Common normals: normocephalic, hearing grossly normal bilaterally and moist oral mucous membranes Head and scalp: normocephalic Eye Common normals: PERRL Pupil: PERRL Neck & C-Spine Common normals: full ROM General: normal visual inspection Chest Common normals: inspection of chest normal Respiratory Common normals: normal respiratory effort, no retractions and no use of accessory muscles Back & Pelvis Lumbar spine/lower back: ROM limited, pain with ROM and straight leg raise positive right Other: right L4,5,S1 decreased sensation strength 4/5 in RLE and 5/5 in LLE Extremity Common normals: normal to inspection and full ROM Neuro Common normals: oriented x3, CN's II-XII intact bilaterally, moves all extremities, no focal motor deficits, no sensory deficits noted and deep tendon reflexes 2+ bilaterally Sensorium/orientation: alert Gait (neuro): assistive device used (wheelchair) Motor exam: no movement abnormalities noted Psych Common normals: mental status grossly normal, thought process normal, cooperative, affect normal, speech normal and activity/motor behavior normal Speech: normal speech Thought process: normal thought process Results Additional Findings Additional findings: If on a controlled substance or opioids, I have checked an [place] report on this patient and there are no aberrancies noted in the prescribing history.??If on a controlled substance or opioid a drug screen was completed and reviewed within the last year, and if there has not been a drug screen completed we ordered one today to monitor higher risk, state monitored pain medication use. As part of providing excellent, safe, comprehensive care, the following was completed at our patient's visit: 1. A medication reconciliation and review to ensure accurate knowledge of current/active medications, including asking our patients to inform us about any [id number] medications or herbal remedies/nutritional supplements/alternative remedies. 2. A review to specifically ensure our patients have had annual screening for screening for depression, screening for tobacco use, and screening for unhealthy alcohol use. For concerning screenings had a discussion with the patient, provided patient education, and recommended follow-up with primary care provider when appropriate. If patient noted with a risk of falling, they received education on strength, gait, and balance training to prevent future risk of falling. Portions of this note may have been carried over from the previous visit and updated as appropriate. Please note this office utilizes paper charting in addition to the electronic medical record. A list of current medications, vitals, and PMH is available there as the clinical staff outside of myself do not have access to [address] charting during the clinic day operations. As part of providing quality comprehensive care the current medications, vitals, and PMH were reviewed in the paper chart. Assessment and Plan Assessment and Plan (1) Lumbar stenosis with neurogenic claudication: (2) Lumbar degenerative disc disease: (3) Lumbar radiculopathy: (4) Chronic pain syndrome: (5) Chronic prescription opiate use: (6) Osteoarthritis of hip: Qualifiers: Osteoarthritis type: unspecified Laterality: unspecified laterality Qualified Code(s): M16.9 - Osteoarthritis of hip, unspecified (7) Chronic right hip pain: Plan as recommended by Dr Sharp increase pregabalin to 300mg AM, 150mg mid day, 300mg HS. risks vs benefits reviewed continue baclofen 5-10mg TID PRN pain/spasms continue hydrocodone-acetaminophen 5-325mg TID PRN moderate to severe pain 80 tabs month continue diclofenac 75mg BID PRN pain current medication regimen reviewed with pt, risks vs benefits reviewed. defer NS consultation due to risks, current infection and obesity f/u 6 weeks, consider caudal TAMMIE vs L5-S1 TAMMIE
== END 2024-08-13 10:05 | disposition home or self-care (01) ==
LOC: PM 10:04
PROVIDERS: PCP Nurse Practitioner; Visit Provider Nurse Practitioner
DX: M48.062 Spinal stenosis, lumbar region with neurogenic claudication (principal); M51.369 Other intervertebral disc degeneration, lumbar region without mention of lumbar back pain or lower extremity pain; M54.16 Radiculopathy, lumbar region; G89.4 Chronic pain syndrome; Z79.891 Long term (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 opiate analgesic; M16.11 Unilateral primary osteoarthritis, right hip; M25.551 Pain in right hip
CPT/HCPCS: G0463

== ENCOUNTER 2024-08-13 11:19 | Outpatient (OUT) | payer MEDICARE, OTHER, SELFPAY ==
--- OUTSIDE RECORDS SUMMARY | 2024-08-13 11:23 | XMS_ITS | CCD ---
Author Organization [facility] Care Team Providers Care Carburetor Specialist Name Role Phone James Benavidez Primary Care Provider JAMES BENAVIDEZ Primary Care Unavailable SHENDGE, VITHAL Admitting Unavailable SHENDGE, VITHAL Attending Unavailable AICHHOLZ, MCKAYLA Primary Care Unavailable AICHHOLZ, MCKAYLA Referring Unavailable AICHHOLZ, MCKAYLA J Primary Care Physician [phone] Tico, Stephanie Unavailable OLE RAMIREZ Attending Unavailable OLE RAMIREZ Consulting Unavailable AICHHOLZ, PREPARED FOODS SUPERVISOR MCKAYLA Primary Care Unavailable OLE RAMIREZ Admitting Unavailable ANTONY SHRESTHA Consulting Unavailable ALONDRA ., UMBERTO Admitting Unavailable ALONDRA ., UMBERTO Attending Unavailable AICHHOLZ, PREPARED FOODS SUPERVISOR MCKAYLA Primary Care Unavailable AFSANEH Loera, DR BOLANOS Consulting Unavailable MARYANNE POWER Consulting Unavailable GLENN KERR Consulting Unavailable YOMAIRA KERR Consulting Unavailable HATTIE GOFF Consulting Unavailable ALONDRA ., UMBERTO Consulting Unavailable TICO, STEPHANIE Attending Unavailable TICO, STEPHANIE Consulting Unavailable AICHHOLZ, PREPARED FOODS SUPERVISOR MCKAYLA Primary Care Unavailable TICO, STEPHANIE Admitting Unavailable REGLA ., DR DUMONT Admitting Unavailable AICHHOLZ, PREPARED FOODS SUPERVISOR MCKAYLA Primary Care Unavailable REGLA ., DR DUMONT Attending Unavailable ARAUZ ., DR DUMONT Consulting Unavailable COLLIN HUERTAS Consulting Unavailable CECILIA KAUFMAN Admitting Unavailable CECILIA KAUFMAN Attending Unavailable AICHHOLZ, PREPARED FOODS SUPERVISOR MCKAYLA Primary Care Unavailable RAFAEL GONGORA Attending Unavailable RAFAEL GONGORA Admitting Unavailable AICHHOLZ, PREPARED FOODS SUPERVISOR MCKAYLA Primary Care Unavailable AICHHOLZ, PREPARED FOODS SUPERVISOR MCKAYLA Admitting Unavailable AICHHOLZ, PREPARED FOODS SUPERVISOR MCKAYLA Primary Care Unavailable AICHHOLZ, PREPARED FOODS SUPERVISOR MCKAYLA Attending Unavailable AICHHOLZ, PREPARED FOODS SUPERVISOR MCKAYLA Consulting Unavailable LAKSHMIPATHY ., NARENDRANATH Attending Anette vailable LAKSHMIPATHY ., NARENDRANATH Consulting Anette vailable LAKSHMIPATHY ., NARENDRANATH Admitting Anette vailable AICHHOLZ, PREPARED FOODS SUPERVISOR MCKAYLA Primary Care Unavailable VALENZUELA ., GIL Consulting Unavailable MORTENSEN ., DR CHAPARRO Aguillon Attending Unavailable MORTENSEN ., DR CHAPARRO Aguillon Admitting Unavailable AICHHOLZ, PREPARED FOODS SUPERVISOR MCKAYLA Primary Care Unavailable VALENZUELA ., GIL Consulting Unavailable MORTENSEN ., DR CHAPARRO Aguillon Admitting Unavailable AICHHOLZ, PREPARED FOODS SUPERVISOR MCKAYLA Primary Care Unavailable MORTENSEN ., DR CHAPARRO Aguillon Attending Unavailable HALKER ., SUBHASH Consulting Unavailable LAKSHMIPATHY ., NARENDRANATH Admitting Anette vailable LAKSHMIPATHY ., NARENDRANATH Attending Anette vailable AICHHOLZ, PREPARED FOODS SUPERVISOR MCKAYLA Primary Care Unavailable MORTENSEN ., DR CHAPARRO Aguillon Attending Unavailable MORTENSEN ., DR CHAPARRO Aguillon Admitting Unavailable VALENZUELA ., GIL Consulting Unavailable AICHHOLZ, PREPARED FOODS SUPERVISOR MCKAYLA Primary Care Unavailable VALENZUELA ., GIL Consulting Unavailable MORTENSEN ., DR CHAPARRO Aguillon Attending Unavailable MORTENSEN ., DR CHAPARRO Aguillon Admitting Unavailable AICHHOLZ, PREPARED FOODS SUPERVISOR MCKAYLA Primary Care Unavailable HATTIE BRODERICK Attending Unavailable HATTIE BRODERICK Admitting Unavailable AICHHOLZ, PREPARED FOODS SUPERVISOR MCKAYLA Primary Care Unavailable AICHHOLZ, PREPARED FOODS SUPERVISOR MCKAYLA Admitting Unavailable AICHHOLZ, PREPARED FOODS SUPERVISOR MCKAYLA Consulting Unavailable AICHHOLZ, PREPARED FOODS SUPERVISOR MCKAYLA Primary Care Unavailable AICHHOLZ, PREPARED FOODS SUPERVISOR MCKAYLA Attending Unavailable AICHHOLZ, PREPARED FOODS SUPERVISOR MCKAYLA Primary Care Unavailable MISC, DR LESLIE Admitting Unavailable MISC, DR LESLIE Attending Unavailable MISC, DR LESLIE Consulting Unavailable DIAB ., MARIANO Admitting Unavailable DIAB ., MARIANO Attending Unavailable DIAB ., MARIANO Consulting Unavailable AICHHOLZ, PREPARED FOODS SUPERVISOR MCKAYLA Primary Care Unavailable RASTEGAR, RICCO Consulting Unavailable AICHHOLZ, PREPARED FOODS SUPERVISOR MCKAYLA Admitting Unavailable AICHHOLZ, PREPARED FOODS SUPERVISOR MCKAYLA Primary Care Unavailable AICHHOLZ, PREPARED FOODS SUPERVISOR MCKAYLA Attending Unavailable AICHHOLZ, PREPARED FOODS SUPERVISOR MCKAYLA Consulting Unavailable DR PATRICIA VELOZ Consulting Unavailable TAMLYN ., CECILIA Attending Unavailable TAMLYN ., CECILIA Admitting Unavailable DR PATRICIA VELOZ Consulting Unavailable AICHHOLZ, PREPARED FOODS SUPERVISOR MCKAYLA Primary Care Unavailable TAMLYN ., CECILIA Consulting Unavailable MORTENSEN ., DR CHAPARRO Aguillon Attending Unavailable FESTUS ., DR CHAPARRO Aguillon Consulting Unavailable FESTUS ., DR CHAPARRO Aguillon Admitting Unavailable AICHHOLZ, PREPARED FOODS SUPERVISOR MCKAYLA Primary Care Unavailable HATTIE BRODERICK Attending Unavailable HATTIE BRODERICK Consulting Unavailable HATTIE BRODERICK Admitting Unavailable AICHHOLZ, PREPARED FOODS SUPERVISOR MCKAYLA Primary Care Unavailable HATTIE BAUTISTA Unavailable AICHHOLZ, PREPARED FOODS SUPERVISOR MCKAYLA Admitting Unavailable AICHHOLZ, PREPARED FOODS SUPERVISOR MCKAYLA Attending Unavailable AICHHOLZ, PREPARED FOODS SUPERVISOR MCKAYLA Consulting Unavailable AICHHOLZ, PREPARED FOODS SUPERVISOR MCKAYLA Primary Care Unavailable Brennan PHIPPS, Ty Primary Care Provider [phone] Brennan PHIPPS, Ty Primary Care Provider [phone] Aichholz SOLARIS ADMINISTRATOR, Mckayla Unavailable Aichholz SOLARIS ADMINISTRATOR, Mckayla Unavailable Elbert ARAUZ Attending Unavailable SARAH [...] Medication Allergies] Propensity to adverse reactions (disorder) [facility] Repository Medications Current Medications Medication [...] Start Date: 02/06/22 Status: Ordered HYDROcodone-acet aminophen (Caraway) 5-325 MG tablet 1 tablet 3 (three) times a day as needed for severe pain. Active HYDROcodone-acet aminophen (NORCO) 5-325 mg per tablet 2 (two) times a day. 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 Unclassified (1 source) SOFTWARE WRITER INJECT NONINSULN ANTIDIAB; Translations: [SOFTWARE WRITER INJECT NONINSULN ANTIDIAB] Onset: 12-05-2022 Unclassified (3 [...] Range Facility Office Visiton 08-08-2024 Follow-up visit [id number] Mitzi Macias 1970 F Date Provider Department Center 08/08/2024 [id number] BRIDGES [facility] Family History Problem Relation Age of Onset Heart attack Paternal Grandmother Family Status - Relation Status Age at Paternal Grandmother Level of Service:36710 [place] OFFICE/OUTPATIENT ESTABLISHED MOD MDM 30 MIN Reason for Visit and Comments: Congestive Heart Failure [127] - Denies chest pain, SOB, and palpitations. Hypertension [880518] Hyperlipidemia [182] LVH [Other] Edema [[id number]] - Denies worsening edema. She sees wound care for RLE ulcer. She was seeing the vein specialists here in town but they are moving to [place] in a few weeks. Normal [facility] Glucose (Bld) [Mass/Vol]Orde red By: Mica Sauceda on 05-27-2024 Glucose Blood, POC 158 mg/dL [facility] - Hematology and Cell countson 05-27-2024 HbA1c (Bld) [Mass fraction] 9.2 % [facility] No Panel InformationOrdered By: Mica Sauceda on 05-27-2024 [facility] CREATININEon 05-12-2024 Creatinine [Mass/Vol] 0.92 mg/dL 0.55 - 1.02 mg/dL [facility] GFR/1.73 sq M.predicted CKD-EPI (S/P/Bld) [Vol rate/Area] >60 >=60 mL/min/1.73m 2 [facility] EGFR-NON AF TONGAN >60 >=60 mL/min/1.73m 2 [facility] Healthcare Office Visiton 11-14-2023 Follow-up visit [id number] Mitzi Macias 1970 F Date Provider Department Center 11/14/2023 BHARAT NICOLE MARIO [facility] Family History Problem Relation Age of Onset Heart attack Paternal Grandmother Family Status - Relation Status Age at Paternal Grandmother Level of Service:58538 [place] OFFICE/OUTPATIENT NEW LOW MDM 30 MINUTES Normal [facility] CBC AUTO DIFFon 12-06-2022 BASO # 0.0 103/ul Normal 0.0-0.1 [facility] Comment on above: Performed By: #### C BC #### [facility] [address] [address] [address] Ashlie Hills Basophils/100 WBC (Bld) 0.1 % Critically low 0.2-2.0 [facility] Comment on above: Performed By: #### C BC #### [facility] [address] [place] [address] Dr. Ashlie Hills EO # 0.0 103/ul Normal 0.0-0.7 [facility] Comment on above: Performed By: #### C BC #### [facility] [address] [place] [address] Dr. Ashlie Hills Eosinophils/100 WBC (Bld) 0.0 % Critically low 0.9-7.0 [facility] Comment on above: Performed By: #### C BC #### [facility] [address] [place] [address] Dr. Ashlie Hills Erythrocyte distribution width (RBC) [Ratio] 14.9 % Normal 11.0-15.0 [facility] Comment on above: Performed By: #### C BC #### [facility] [address] [place] [address] Dr. Ashlie Hills Hematocrit (Bld) [Volume fraction] 46.2 % Normal 36.0-48.0 [facility] Comment on above: Performed By: #### C BC #### [facility] [address] [place] [address] Dr. Ashlie Hills Hemoglobin (Bld) [Mass/Vol] 14.7 g/dL Normal 12.0-16.0 [facility] Comment on above: Performed By: #### C BC #### [facility] [address] [place] [address] Dr. Ashlie Hills IG # 0.06 10e3/ul Critically high 0.00-0.03 [facility] Comment on above: Performed By: #### C BC #### [facility] [address] [place] [address] Dr. Ashlie Hills IG % 0.4 % Normal 0.0-0.5 [facility] Comment on above: Performed By: #### C BC #### [facility] [address] [place] [address] Dr. Ashlie Hills LYMPH # 1.3 103/ul Normal 1.2-3.8 [facility] Comment on above: Performed By: #### C BC #### [facility] [address] [place] [address] Dr. Ashlie Hills Lymphocytes/100 WBC (Bld) 9.4 % Critically low 20.5-60.0 [facility] Comment on above: Performed By: #### C BC #### [facility] [address] [place] [address] Dr. Ashlie Hills MANUAL DIFF REQ NO Normal [facility] Comment on above: Performed By: #### C BC #### [facility] [address] [place] [address] Dr. Ashlie Hills MCH (RBC) [Entitic mass] 28.4 pg Normal 26.7-34.0 [facility] Comment on above: Performed By: #### C BC #### [facility] [address] [place] [address] Dr. Ashlie Hills MCHC (RBC) [Mass/Vol] 31.8 g/dL Normal 29.9-35.2 [facility] Comment on above: Performed By: #### C BC #### [facility] [address] [place] [address] Dr. Ashlie Hills MCV (RBC) [Entitic vol] 89.4 fL Normal 81.0-99.0 [facility] Comment on above: Performed By: #### C BC #### [facility] [address] [place] [address] Dr. Ashlie Hills MONO # 0.5 103/ul Normal 0.3-0.8 [facility] Comment on above: Performed By: #### C BC #### [facility] [address] [place] [address] Dr. Ashlie Hills Monocytes/100 WBC (Bld) 3.4 % Normal 1.7-12.0 [facility] Comment on above: Performed By: #### C BC #### [facility] [address] [place] [address] Dr. Ashlie Hills NEUT # 11.8 103/ul Critically high 1.4-6.5 [facility] Comment on above: Performed By: #### C BC #### [facility] [address] [place] [address] Dr. Ashlie Hills Neutrophils/100 WBC (Bld) 86.7 % Critically high 43.0-75.0 [facility] Comment on above: Performed By: #### C BC #### [facility] [address] [place] [address] Dr. Ashlie Hills Platelet mean volume (Bld) [Entitic vol] 12.6 fL Normal 9.5-13.5 [facility] Comment on above: Performed By: #### C BC #### [facility] [address] [place] [address] Dr. Ashlie Hills PLT 133 103/ul Critically low 150-450 [facility] Comment on above: Performed By: #### C BC #### [facility] [address] [place] [address] Dr. Ashlie Hills RBC 5.17 106/ul Normal 4.20-5.40 [facility] Comment on above: Performed By: #### C BC #### [facility] [address] [place] [address] Dr. Ashlie Hills WBC 13.6 103/ul Critically high 4.0-11.0 [facility] Comment on above: Performed By: #### C BC #### [facility] [address] [place] [address] Dr. Ashlie Hills MAGNESIUMon 12-06-2022 Magnesium [Mass/Vol] 2.2 mg/dL Normal 1.8-2.4 [facility] Comment on above: Performed By: #### I NFLUAB #### [facility] [address] [place] [address] Dr. Ashlie Hills POINT OF CARE GLUCOSEon 11-08 Glucose [Mass/Vol] 340 mg/dL Critically high 74-106 [facility] Comment on above: Performed By: #### P OCGLUC #### [facility] [address] [place] [address] Dr. Ashlie Hills Glucose [Mass/Vol] 276 mg/dL Critically high 74-106 [facility] Comment on above: Performed By: #### C BC #### [facility] [address] [place] [address] Dr. Ashlie Hills Glucose [Mass/Vol] 333 mg/dL Critically high 74-106 [facility] Comment on above: Performed By: #### C BC #### [facility] [address] [place] [address] Dr. Ashlie Hills PROF CHEM 8 (BAS METB)on Anion gap [Moles/Vol] 10.9 mmol/L Normal [facility] Comment on above: Performed By: #### I NFLUAB #### [facility] [address] [place] [address] Dr. Ashlie Hills Calcium [Mass/Vol] 9.3 mg/dL Normal 8.5-10.1 [facility] Comment on above: Performed By: #### I NFLUAB #### [facility] [address] [place] [address] Dr. Ashlie Hills Chloride [Moles/Vol] 103 mmol/L Normal 98-107 [facility] Comment on above: Performed By: #### I NFLUAB #### [facility] [address] [place] [address] Dr. Ashlie Hills CO2 [Moles/Vol] 31.2 mmol/L Normal 21.0-32.0 [facility] Comment on above: Performed By: #### I NFLUAB #### [facility] [address] [place] [address] Dr. Ashlie Hills Creatinine [Mass/Vol] 0.96 mg/dL Normal 0.55-1.02 [facility] Comment on above: Performed By: #### I NFLUAB #### [facility] [address] [place] [address] Dr. Ashlie Hills EGFR-AF TONGAN >60 Normal >=60 [facility] Comment on above: Performed By: #### I NFLUAB #### [facility] [address] [place], [place] [id number] Dr. Ashlie Hills EGFR-NON AF TONGAN >60 Normal >=60 [facility] Comment on above: Performed By: #### I NFLUAB #### [facility] [address] [place] [address] Dr. Ashlie Hills Glucose [Mass/Vol] 288 mg/dL Critically high 74-106 [facility] Comment on above: Performed By: #### I NFLUAB #### [facility] [address] [place] [address] Dr. Ashlie Hills Potassium [Moles/Vol] 5.1 mmol/L Normal 3.5-5.1 [facility] Comment on above: Performed By: #### I NFLUAB #### [facility] [address] [place] [address] Dr. Ashlie Hills Sodium [Moles/Vol] 140 mmol/L Normal 136-145 [facility] Comment on above: Performed By: #### I NFLUAB #### [facility] [address] [place] [address] Dr. Ashlie Hills Urea nitrogen [Mass/Vol] 30.0 mg/dL Critically high 7.0-18.0 [facility] Comment on above: Performed By: #### I NFLUAB #### [facility] [address] [place] [address] Dr. Ashlie Hills Urea nitrogen/Creatinine [Mass ratio] 31.2 mg/mg Normal [facility] Comment on above: Performed By: #### I NFLUAB #### [facility] [address] [place] [address] Dr. Ashlie Hills CBC AUTO DIFFon 12-05-2022 BASO # 0.0 103/ul Normal 0.0-0.1 [facility] Comment on above: Performed By: #### C BC #### [facility] [address] [place] [address] Dr. Ashlie Hills Basophils/100 WBC (Bld) 0.4 % Normal 0.2-2.0 [facility] Comment on above: Performed By: #### C BC #### [facility] [address] [place] [address] Dr. Ashlie Hilsl EO # 0.0 103/ul Normal 0.0-0.7 [facility] Comment on above: Performed By: #### C BC #### [facility] [address] [place] [address] Dr. Ashlie Hills Eosinophils/100 WBC (Bld) 0.0 % Critically low 0.9-7.0 [facility] Comment on above: Performed By: #### C BC #### [facility] [address] [place] [address] Dr. Ashlie Hills Erythrocyte distribution width (RBC) [Ratio] 14.8 % Normal 11.0-15.0 [facility] Comment on above: Performed By: #### C BC #### [facility] [address] [place] [address] Dr. Ashlie Hills Hematocrit (Bld) [Volume fraction] 49.9 % Critically high 36.0-48.0 [facility] Comment on above: Performed By: #### C BC #### [facility] [address] [place] [address] Dr. Ashlie Hills Hemoglobin (Bld) [Mass/Vol] 15.7 g/dL Normal 12.0-16.0 [facility] Comment on above: Performed By: #### C BC #### [facility] [address] [place] [address] Dr. Ashlie Hills IG # 0.04 10e3/ul Critically high 0.00-0.03 [facility] Comment on above: Performed By: #### C BC #### [facility] [address] [place] [address] Dr. Ashlie Hills IG % 0.5 % Normal 0.0-0.5 [facility] Comment on above: Performed By: #### C BC #### [facility] [address] [place] [address] Dr. Ashlie Hills LYMPH # 1.1 103/ul Critically low 1.2-3.8 [facility] Comment on above: Performed By: #### C BC #### [facility] [address] [place] [address] Dr. Ashlie Hills Lymphocytes/100 WBC (Bld) 12.7 % Critically low 20.5-60.0 [facility] Comment on above: Performed By: #### C BC #### [facility] [address] [place] [address] Dr. Ashlie Hills MANUAL DIFF REQ NO Normal [facility] Comment on above: Performed By: #### C BC #### [facility] [address] [address] [address] Ashlie Hills MCH (RBC) [Entitic mass] 28.1 pg Normal 26.7-34.0 [facility] Comment on above: Performed By: #### C BC #### [facility] [address] [place] [address] Dr. Ashlie Hills MCHC (RBC) [Mass/Vol] 31.5 g/dL Normal 29.9-35.2 [facility] Comment on above: Performed By: #### C BC #### [facility] [address] [place] [address] Dr. Ashlie Hills MCV (RBC) [Entitic vol] 89.3 fL Normal 81.0-99.0 [facility] Comment on above: Performed By: #### C BC #### [facility] [address] [place] [address] Dr. Ashlie Hills MONO # 0.1 103/ul Critically low 0.3-0.8 [facility] Comment on above: Performed By: #### C BC #### [facility] [address] [place] [address] Dr. Ashlie Hills Monocytes/100 WBC (Bld) 1.3 % Critically low 1.7-12.0 [facility] Comment on above: Performed By: #### C BC #### [facility] [address] [place] [address] Dr. Ashlie Hills NEUT # 7.2 103/ul Critically high 1.4-6.5 [facility] Comment on above: Performed By: #### C BC #### [facility] [address] [place] [address] Dr. Ashlie Hills Neutrophils/100 WBC (Bld) 85.1 % Critically high 43.0-75.0 [facility] Comment on above: Performed By: #### C BC #### [facility] [address] [address] [address] Ashlie Hills Platelet mean volume (Bld) [Entitic vol] 12.2 fL Normal 9.5-13.5 [facility] Comment on above: Performed By: #### C BC #### [facility] [address] [address] [address] Ashlie Hills PLT 116 103/ul Critically low 150-450 [facility] Comment on above: Performed By: #### C BC #### [facility] [address] [address] [address] Ashlie Hills RBC 5.59 106/ul Critically high 4.20-5.[address] [facility] Comment on above: Performed By: #### C BC #### [facility] [address] [address] [address] Ashlie Hills WBC 8.5 103/ul Normal 4.0-11.0 [facility] Comment on above: Performed By: #### C BC #### [facility] [address] [address] [address] Ashlie Hills CTA CHEST WO W [...] by: HATTIE GOFF Date: 2022-12-05 01:52 Normal [facility] MAGNESIUMon 12-05-2022 Magnesium [Mass/Vol] 2.1 mg/dL Normal 1.8-2.4 [facility] Comment on above: Performed By: #### P OCGLUC #### [facility] [address] [place] [address] Dr. Ashlie Hills POINT OF CARE GLUCOSEon 11-08 Glucose [Mass/Vol] 293 mg/dL Critically high -106 [facility] Comment on above: Performed By: #### P OCGLUC #### [facility] [address] [place] [address] Dr. Ashlie Hills Glucose [Mass/Vol] 269 mg/dL Critically high -106 [facility] Comment on above: Performed By: #### P OCGLUC #### [facility] [address] [place] [address] Dr. Ashlie Hills Glucose [Mass/Vol] 223 mg/dL Critically high -106 [facility] Comment on above: Performed By: #### C VDAGS #### [facility] [address] [place] [address] Dr. Ashlie Hills PROF CHEM 8 (BAS METB)on Anion gap [Moles/Vol] 11.6 mmol/L Normal [facility] Comment on above: Performed By: #### P OCGLUC #### [facility] [address] [address] [address] Ashlie Hills Calcium [Mass/Vol] 9.2 mg/dL Normal 8.5-10.1 [facility] Comment on above: Performed By: #### P OCGLUC #### [facility] [address] [address] [address] Ashlie Hills Chloride [Moles/Vol] 102 mmol/L Normal 98-107 [facility] Comment on above: Performed By: #### P OCGLUC #### [facility] [address] [address] [address] Ashlie Hills CO2 [Moles/Vol] 28.7 mmol/L Normal 21.0-32.0 [facility] Comment on above: Performed By: #### P OCGLUC #### [facility] [address] [address] [address] Ashlie Hills Creatinine [Mass/Vol] 1.04 mg/dL Critically high 0.55-1.02 [facility] Comment on above: Performed By: #### P OCGLUC #### [facility] [address] [address] [address] Ashlie Hills EGFR-AF TONGAN >60 Normal >=60 [facility] Comment on above: Performed By: #### P OCGLUC #### [facility] [address] [address] [address] Ashlie Hills EGFR-NON AF TONGAN 56 mL/min/1.73m2 Critically low >=60 [facility] Comment on above: Performed By: #### P OCGLUC #### [facility] [address] [address] [address] Ashlie Hills Glucose [Mass/Vol] 231 mg/dL Critically high 74-106 [facility] Comment on above: Performed By: #### P OCGLUC #### [facility] [address] [address] [address] Ashlie Hills Potassium [Moles/Vol] 4.3 mmol/L Normal 3.5-5.1 [facility] Comment on above: Performed By: #### P OCGLUC #### [facility] [address] [place] [address] Dr. Ashlie Hills Sodium [Moles/Vol] 138 mmol/L Normal 136-145 [facility] Comment on above: Performed By: #### P OCGLUC #### [facility] [address] [place] [address] Dr. Ashlie Hills Urea nitrogen [Mass/Vol] 17.0 mg/dL Normal 7.0-18.0 [facility] Comment on above: Performed By: #### P OCGLUC #### [facility] [address] [place] [address] Dr. Ashlie Hills Urea nitrogen/Creatinine [Mass ratio] 16.3 mg/mg Normal [facility] Comment on above: Performed By: #### P OCGLUC #### [facility] [address] [place] [address] Dr. Ashlie Hills RESPIRATORY PANEL PLUSon Adenovirus Not detected Normal NOT DETECTED [facility] Comment on above: Performed By: #### C VDAGS #### [facility] [address] [place] [address] Dr. Ashlie Hills B. Parapertusis Not detected Normal NOT DETECTED [facility] Comment on above: Performed By: #### C VDAGS #### [facility] [address] [place] [address] Dr. Ashlie Shaffer. Pertussis Not detected Normal NOT DETECTED The [facility] Comment on above: Performed By: #### C VDAGS #### [facility] [address] [place] [address] Dr. Ashlie Hills Chlamydia Pneumoniae Not detected Normal NOT DETECTED The [facility] Comment on above: Performed By: #### C VDAGS #### [facility] [address] [place] [address] Dr. Ashlie Hills Coronavirus 229E Not detected Normal NOT DETECTED [facility] Comment on above: Performed By: #### C VDAGS #### [facility] [address] [place] [address] Dr. Ashlie Hills Coronavirus HKU1 Not detected Normal NOT DETECTED The [facility] Comment on above: Performed By: #### C VDAGS #### [facility] [address] [place] [address] Dr. Ashlie Hills Coronavirus NL63 Not detected Normal NOT DETECTED The [facility] Comment on above: Performed By: #### C VDAGS #### [facility] [address] [address] [address] Ashlie Hills Coronavirus OC43 Not detected Normal NOT DETECTED The [facility] Comment on above: Performed By: #### C VDAGS #### [facility] [address] [place] [address] Dr. Ashlie Hills Influenza A H1 Not detected Normal NOT DETECTED [facility] Comment on above: Performed By: #### C VDAGS #### [facility] [address] [place] [address] Dr. Ashlie Hills Influenza A H1 2009 Not detected Normal NOT DETECTED [facility] Comment on above: Performed By: #### C VDAGS #### [facility] [address] [place] [address] Dr. Ashlie Hills Influenza A H3 Not detected Normal NOT DETECTED [facility] Comment on above: Performed By: #### C VDAGS #### [facility] [address] [place] [address] Dr. Ashlie Hills Influenza B Not detected Normal NOT DETECTED The [facility] Comment on above: Performed By: #### C VDAGS #### [facility] [address] [place] [address] Dr. Ashlie Hills Metapneumovirus Not detected Normal NOT DETECTED [facility] Comment on above: Performed By: #### C VDAGS #### [facility] [address] [place] [address] Dr. Ashlie Hills Mycoplas. Pneumoniae Not detected Normal NOT DETECTED The [facility] Comment on above: Performed By: #### C VDAGS #### [facility] [address] [place] [address] Dr. Ashlie Hills Parainfluenza 1 Not detected Normal NOT DETECTED [facility] Comment on above: Performed By: #### C VDAGS #### [facility] [address] [place] [address] Dr. Ashlie Hills Parainfluenza 2 Not detected Normal NOT DETECTED [facility] Comment on above: Performed By: #### C VDAGS #### [facility] [address] [place] [address] Dr. Ashlie Hills Parainfluenza 3 Detected Abnormal NOT DETECTED The [facility] Comment on above: Performed By: #### C VDAGS #### [facility] [address] [place] [address] Dr. Ashlie Hills Parainfluenza 4 Not detected Normal NOT DETECTED [facility] Comment on above: Performed By: #### C VDAGS #### [facility] [address] [place] [address] Dr. Ashlie Hills Rhino/Enterovirus Not detected Normal NOT DETECTED [facility] Comment on above: Performed By: #### C VDAGS #### [facility] [address] [place] [address] Dr. Ashlie Hills RP2 Header 1 RESPIRATORY PANEL: VIRUSES Normal [facility] Comment on above: Performed By: #### C VDAGS #### [facility] [address] [place] [address] Dr. Ashlie Hills RP2 Header 2 RESPIRATORY PANEL: BACTERIA Normal [facility] Comment on above: Performed By: #### C VDAGS #### [facility] [address] [place] [address] Dr. Ashlie Hills RSV Not detected Normal NOT DETECTED The [facility] Comment on above: Performed By: #### C VDAGS #### [facility] [address] [place] [address] Dr. Ashlie Hills SARS-CoV-2 (COVID-19) RNA MADDY+probe Ql (Unsp spec) Not detected Normal NOT DETECTED The [facility] Comment on above: Performed By: #### C VDAGS #### [facility] [address] [place] [address] Dr. Ashlie Hills XR CHEST 1 Von [...] MARYANNE POWER Date: 2022-12-04 22:23 Normal [facility] BLOOD GASES BTYon 12-04-2022 02 MODE ROOM AIR Normal [facility] Comment on above: Performed By: #### C BC #### [facility] [address] [place] [address] Dr. Ashlie Hills ALLENS TEST Positive Normal [facility] Comment on above: Performed By: #### C BC #### [facility] [address] [place] [address] Dr. Ashlie Hills Base excess Calc (Bld) [Moles/Vol] 5.4 mmol/L Critically high -2.0-2.0 [facility] Comment on above: Performed By: #### C BC #### [facility] [address] [place] [address] Dr. Ashlie Hills BIPAP PRESSURE Normal [facility] Comment on above: Performed By: #### C BC #### [facility] [address] [place] [address] Dr. Ashlie Hills CPAP Normal [facility] Comment on above: Performed By: #### C BC #### [facility] [address] [place] [address] Dr. Ashlie Hills FIO2 Normal [facility] Comment on above: Performed By: #### C BC #### [facility] [address] [place] [address] Dr. Ashlie Hills HCO3 (Bld) [Moles/Vol] 30.8 mmol/L Critically high 22.0-26 .0 [facility] Comment on above: Performed By: #### C BC #### [facility] [address] [place] [address] Dr. Ashlie Hills LPM Normal [facility] Comment on above: Performed By: #### C BC #### [facility] [address] [place] [address] Dr. Ashlie Hills MINUTE VOLUME Normal [facility] Comment on above: Performed By: #### C BC #### [facility] [address] [place] [address] Dr. Ashlie Hills Oxygen (Bld) [Partial pressure] 46.3 mm[Hg] Critically low 80.0-100.0 [facility] Comment on above: Performed By: #### C BC #### [facility] [address] [place] [address] Dr. Ashlie Hills Oxygen saturation in Blood 83.9 % Critically low 95.0-100.0 [facility] Comment on above: Performed By: #### C BC #### [facility] [address] [place] [address] Dr. Ashlei Hills PCO2 54.2 mmHg Critically high 35.0-45.0 [facility] Comment on above: Performed By: #### C BC #### [facility] [address] [place] [address] Dr. Ashlie Hills PEEP [facility] Comment on above: Performed By: #### C BC #### [facility] [address] [place] [address] Dr. Ashlie Hills pH (Bld) 7.363 [pH] Normal 7.350-7.450 [facility] Comment on above: Performed By: #### C BC #### [facility] [address] [place] [address] Dr. Ashlie Hills PIP [facility] Comment on above: Performed By: #### C BC #### [facility] [address] [place] [address] Dr. Ashlie Hills PS [facility] Comment on above: Performed By: #### C BC #### [facility] [address] [place] [address] Dr. Ashlie Hills PUNCTURE SITE LR [facility] Comment on above: Performed By: #### C BC #### [facility] [address] [place] [address] Dr. Ashlie Hills [facility] Comment on above: Performed By: #### C BC #### [facility] [address] [place] [address] Dr. Ashlie Hills [facility] Comment on above: Performed By: #### C BC #### [facility] [address] [place] [address] Dr. Ashlie Hills [facility] Comment on above: Performed By: #### C BC #### [facility] [address] [place] [address] Dr. Ashlie Hills BNPon 12-04-2022 Natriuretic peptide B (Bld) [Mass/Vol] 76.0 pg/mL Normal <=900.0 [facility] Comment on above: Performed By: #### P OCGLUC #### [facility] [address] [place] [address] Dr. Ashlie Hills CBC AUTO DIFFon 12-04-2022 BASO # 0.1 103/ul Normal 0.0-0.1 [facility] Comment on above: Performed By: #### C BC #### [facility] [address] [place] [address] Dr. Ashlie Hills Basophils/100 WBC (Bld) 0.6 % Normal 0.2-2.0 [facility] Comment on above: Performed By: #### C BC #### [facility] [address] [place] [address] Dr. Ashlie Hills EO # 0.2 103/ul Normal 0.0-0.7 [facility] Comment on above: Performed By: #### C BC #### [facility] [address] [place] [address] Dr. Ashlie Hills Eosinophils/100 WBC (Bld) 1.9 % Normal 0.9-7.0 [facility] Comment on above: Performed By: #### C BC #### [facility] [address] [place] [address] Dr. Ashlie Hills Erythrocyte distribution width (RBC) [Ratio] 15.0 % Normal 11.0-15.0 [facility] Comment on above: Performed By: #### C BC #### [facility] [address] [address] [address] Ashlie Hills Hematocrit (Bld) [Volume fraction] 49.1 % Critically high 36.0-48.0 [facility] Comment on above: Performed By: #### C BC #### [facility] [address] [address] [address] Ashlie Hills Hemoglobin (Bld) [Mass/Vol] 15.6 g/dL Normal 12.0-16.0 [facility] Comment on above: Performed By: #### C BC #### [facility] [address] [address] [address] Ashlie Hills IG # 0.02 10e3/ul Normal 0.00-0.03 [facility] Comment on above: Performed By: #### C BC #### [facility] [address] [address] [address] Ashlie Hills IG % 0.2 % Normal 0.0-0.5 [facility] Comment on above: Performed By: #### C BC #### [facility] [address] [address] [address] Ashlie Hills LYMPH # 2.8 103/ul Normal 1.2-3.8 [facility] Comment on above: Performed By: #### C BC #### [facility] [address] [address] [address] Ashlie Hills Lymphocytes/100 WBC (Bld) 29.9 % Normal 20.5-60.0 [facility] Comment on above: Performed By: #### C BC #### [facility] [address] [address] [address] Ashlie Hills MANUAL DIFF REQ NO Normal [facility] Comment on above: Performed By: #### C BC #### [facility] [address] [place] [address] Dr. Ashlie Hills MCH (RBC) [Entitic mass] 28.5 pg Normal 26.7-34.0 [facility] Comment on above: Performed By: #### C BC #### [facility] [address] [address] [address] Ashlie Hills MCHC (RBC) [Mass/Vol] 31.8 g/dL Normal 29.9-35.2 [facility] Comment on above: Performed By: #### C BC #### [facility] [address] [address] [address] Ashlie Hills MCV (RBC) [Entitic vol] 89.8 fL Normal 81.0-99.0 [facility] Comment on above: Performed By: #### C BC #### [facility] [address] [address] [address] Ashlie Hills MONO # 1.0 103/ul Critically high 0.3-0.8 [facility] Comment on above: Performed By: #### C BC #### [facility] [address] [address] [address] Ashlie Hills Monocytes/100 WBC (Bld) 10.6 % Normal 1.7-12.0 [facility] Comment on above: Performed By: #### C BC #### [facility] [address] [address] [address] Ashlie Hills NEUT # 5.3 103/ul Normal 1.4-6.5 [facility] Comment on above: Performed By: #### C BC #### [facility] [address] [address] [address] Ashlie Hills Neutrophils/100 WBC (Bld) 56.8 % Normal 43.0-75.0 [facility] Comment on above: Performed By: #### C BC #### [facility] [address] [address] [address] Ashlie Hills Platelet mean volume (Bld) [Entitic vol] 12.5 fL Normal 9.5-13.5 [facility] Comment on above: Performed By: #### C BC #### [facility] [address] [address] [address] Ashlie Hills PLT 109 103/ul Critically low 150-450 [facility] Comment on above: Performed By: #### C BC #### [facility] [address] [place] [address] Dr. Ashlie Hills RBC 5.47 106/ul Critically high 4.20-5.40 [facility] Comment on above: Performed By: #### C BC #### [facility] [address] [place] [address] Dr. Ashlie Hills WBC 9.4 103/ul Normal 4.0-11.0 [facility] Comment on above: Performed By: #### C BC #### [facility] [address] [place] [address] Dr. Ashlie Hills PROF 14(COMP METB)on 023 Albumin [Mass/Vol] 2.9 g/dL Critically low 3.4-5.0 e [facility] Comment on above: Performed By: #### C BC #### [facility] [address] [place] [address] Dr. Ashlie Hills Albumin/Globulin [Mass ratio] 0.6 {ratio} Normal [facility] Comment on above: Performed By: #### C BC #### [facility] [address] [place] [address] Dr. Ashlie Hills ALP [Catalytic activity/Vol] 64 U/L Normal 46-116 [facility] Comment on above: Performed By: #### C BC #### [facility] [address] [place] [address] Dr. Ashlie Hills ALT [Catalytic activity/Vol] 16 U/L Normal 14-59 [facility] Comment on above: Performed By: #### C BC #### [facility] [address] [place] [address] Dr. Ashlie Hills Anion gap [Moles/Vol] 9.6 mmol/L Normal [facility] Comment on above: Performed By: #### C BC #### [facility] [address] [place] [address] Dr. Ashlie Hills AST [Catalytic activity/Vol] 16 U/L Normal 15-37 [facility] Comment on above: Performed By: #### C BC #### [facility] [address] [place] [address] Dr. Ashlie Hills Bilirubin [Mass/Vol] 0.5 mg/dL Normal 0.2-1.0 [facility] Comment on above: Performed By: #### C BC #### [facility] [address] [address] [address] Ashlie Hills Calcium [Mass/Vol] 8.7 mg/dL Normal 8.5-10.1 [facility] Comment on above: Performed By: #### C BC #### [facility] [address] [address] [address] Ashlie Hills Chloride [Moles/Vol] 103 mmol/L Normal 98-107 [facility] Comment on above: Performed By: #### C BC #### [facility] [address] [address] [address] Ashlie Hills CO2 [Moles/Vol] 30.7 mmol/L Normal 21.0-32.0 [facility] Comment on above: Performed By: #### C BC #### [facility] [address] [place] [address] Dr. Ashlie Hills Creatinine [Mass/Vol] 0.96 mg/dL Normal 0.55-1.02 [facility] Comment on above: Performed By: #### C BC #### [facility] [address] [place] [address] Dr. Ashlie Hills EGFR-AF TONGAN >60 Normal >=60 [facility] Comment on above: Performed By: #### C BC #### [facility] [address] [place] [address] Dr. Ashlie Hills EGFR-NON AF TONGAN >60 Normal >=60 [facility] Comment on above: Performed By: #### C BC #### [facility] [address] [address] [address] Ashlie Hills Globulin (S) [Mass/Vol] 4.7 g/dL Normal [facility] Comment on above: Performed By: #### C BC #### [facility] [address] [address] [address] Ashlie Hills Glucose [Mass/Vol] 170 mg/dL Critically high 74-106 [facility] Comment on above: Performed By: #### C BC #### [facility] [address] [address] [address] Ashlie Hills Potassium [Moles/Vol] 4.3 mmol/L Normal 3.5-5.1 [facility] Comment on above: Performed By: #### C BC #### [facility] [address] [address] [address] Ashlie Hills Protein [Mass/Vol] 7.6 g/dL Normal 6.4-8.2 [facility] Comment on above: Performed By: #### C BC #### [facility] [address] [address] [address] Ashlie Hills Sodium [Moles/Vol] 139 mmol/L Normal 136-145 [facility] Comment on above: Performed By: #### C BC #### [facility] [address] [address] [address] Ashlie Hills Urea nitrogen [Mass/Vol] 16.0 mg/dL Normal 7.0-18.0 [facility] Comment on above: Performed By: #### C BC #### [facility] [address] [address] [address] Ashlie Hills Urea nitrogen/Creatinine [Mass ratio] 16.7 mg/mg Normal [facility] Comment on above: Performed By: #### C BC #### [facility] [address] [address] [address] Ashlie Hills SYMPTOMATIC COVID-19 ANTIGEN on 12-04-2022 EUA Statement SEE BELOW Normal [facility] Comment on [...] sooner. Performed By: #### C VDAGS #### [facility] [address] [place] [address] Dr. Ashlie Hills SARS-CoV-2 (COVID-19) RNA MADDY+probe Ql (Unsp spec) Negative Normal NEGATIVE [facility] Comment on above: Performed By: #### C VDAGS #### [facility] [address] [place] [address] Dr. Ashlie Hills TROPONIN, HIGH SENSITIVITYon 12-04-2022 HSTROP 8.9 pg/mL Normal 4.0-51.3 [facility] Comment on above: Result Comment: CUT- OFF POINTS HAVE BEEN ESTABLISHED BASED ON THE FOURTH UNIVERSAL DEFINITIONS OF MYOCARDIAL INFARCTION. THE UPPER REFERENCE LIMIT (URL) OF TROPONIN, DEFINED THE 99TH PERCENTILE OF cTnI DISTRIBUTION IN A REFERENCE POPULATION, HAS BEEN CONFIRMED THE DECISION THRESHOLD FOR CT DIAGNOSIS. Performed By: #### P OCGLUC #### [facility] [address] [place] [address] Dr. Ashlie Hills MICROALBUMIN, RAND URon - mALB 35.8 mg/dL Critically high <=30.0 [facility] Comment on above: Performed By: #### C VDAGS #### [facility] [address] [place] [address] Dr. Ashlie Hills UA RANDOM W/MICROSCOPICon BACTERIA NONE SEEN Normal NONE SEEN [facility] Comment on above: Performed By: #### C VDAGS #### [facility] [address] [place] [address] Dr. Ashlie Hills Bilirubin Ql (U) Negative Normal NEGATIVE The [facility] Comment on above: Performed By: #### C VDAGS #### [facility] [address] [place] [address] Dr. Ashlie Hills CAST SEEN Abnormal NONE SEEN [facility] Comment on above: Performed By: #### C VDAGS #### [facility] [address] [place] [address] Dr. Ashlie Hills Clarity (U) CLEAR Normal CLEAR [facility] Comment on above: Performed By: #### C VDAGS #### [facility] [address] [place] [address] Dr. Ashlie Hills Color (U) YELLOW Normal YELLOW [facility] Comment on above: Performed By: #### C VDAGS #### [facility] [address] [place] [address] Dr. Ashlie Hills Crystals LM Nom (Urine sed) NONE SEEN Normal NONE SEEN [facility] Comment on above: Performed By: #### C VDAGS #### [facility] [address] [place] [address] Dr. Ashlie Hills Epithelial cells LM Ql (Urine sed) MODERATE Abnormal NONE SEEN /RARE [facility] Comment on above: Performed By: #### C VDAGS #### [facility] [address] [place] [address] Dr. Ashlie Hills Glucose Ql (U) Negative Normal NEGATIVE [facility] Comment on above: Performed By: #### C VDAGS #### [facility] [address] [place] [address] Dr. Ashlie Hills Hemoglobin Ql (U) TRACE-INTACT Abnormal NEGATIVE [facility] Comment on above: Performed By: #### C VDAGS #### [facility] [address] [place] [address] Dr. Ashlie Hills Ketones Ql (U) Negative Normal NEGATIVE [facility] Comment on above: Performed By: #### C VDAGS #### [facility] [address] [place] [address] Dr. Ashlie Hills LEUKOCYTES Negative Normal NEGATIVE [facility] Comment on above: Performed By: #### C VDAGS #### [facility] [address] [place] [address] Dr. Ashlie Hills MUCOUS NONE SEEN Normal NONE SEEN [facility] Comment on above: Performed By: #### C VDAGS #### [facility] [address] [place] [address] Dr. Ashlie Hills Nitrite Ql (U) Negative Normal NEGATIVE [facility] Comment on above: Performed By: #### C VDAGS #### [facility] [address] [place] [address] Dr. Ashlie Hills pH (U) 5.0 [pH] Normal 5-9 [facility] Comment on above: Performed By: #### C VDAGS #### [facility] [address] [place] [address] Dr. Ashlie Hills RBC 0-2 Normal 0-2 [facility] Comment on above: Performed By: #### C VDAGS #### [facility] [address] [place] [address] Dr. Ashlie Hills SPEC GRAVITY 1.030 Abnormal 1.005-<=1.025 [facility] Comment on above: Performed By: #### C VDAGS #### [facility] [address] [place] [address] Dr. Ashlie Hills UA PROTEIN 100 mg/dl Abnormal NEGATIVE/ TRACE [facility] Comment on above: Performed By: #### C VDAGS #### [facility] [address] [place] [address] Dr. Ashlie Hills Urobilinogen Qn (U) 0.2 {Little'U}/dL Normal 0.2 - 1. 0 [facility] Comment on above: Performed By: #### C VDAGS #### [facility] [address] [place] [address] Dr. Ashlie Hills WBC NONE SEEN Normal NONE SEEN [facility] Comment on above: Performed By: #### C VDAGS #### [facility] [address] [place] [address] Dr. Ashlie Hills CBC AUTO DIFFon 11-22-2022 BASO # 0.0 103/ul Normal 0.0-0.1 [facility] Comment on above: Performed By: #### C BC #### [facility] [address] [place] [address] Dr. Ashlie Hills Basophils/100 WBC (Bld) 0.3 % Normal 0.2-2.0 [facility] Comment on above: Performed By: #### C BC #### [facility] [address] [address] [address] Ashlie Hills EO # 0.4 103/ul Normal 0.0-0.7 [facility] Comment on above: Performed By: #### C BC #### [facility] [address] [place] [address] Dr. Ashlie Hills Eosinophils/100 WBC (Bld) 3.0 % Normal 0.9-7.0 [facility] Comment on above: Performed By: #### C BC #### [facility] [address] [place] [address] Dr. Ashlie Hills Erythrocyte distribution width (RBC) [Ratio] 15.3 % Critically high 11.0-15.0 [facility] Comment on above: Performed By: #### C BC #### [facility] [address] [place] [address] Dr. Ashlie Hills Hematocrit (Bld) [Volume fraction] 52.4 % Critically high 36.0-48.0 [facility] Comment on above: Performed By: #### C BC #### [facility] [address] [place] [address] Dr. Ashlie Hills Hemoglobin (Bld) [Mass/Vol] 16.8 g/dL Critically high 12.0-16.0 [facility] Comment on above: Performed By: #### C BC #### [facility] [address] [place] [address] Dr. Ashlie Hills IG # 0.04 10e3/ul Critically high 0.00-0.03 [facility] Comment on above: Performed By: #### C BC #### [facility] [address] [place] [address] Dr. Ashlie Hills IG % 0.3 % Normal 0.0-0.5 [facility] Comment on above: Performed By: #### C BC #### [facility] [address] [place] [address] Dr. Ashlie Hills LYMPH # 4.5 103/ul Critically high 1.2-3.8 [facility] Comment on above: Performed By: #### C BC #### [facility] [address] [place] [address] Dr. Ashlie Hills Lymphocytes/100 WBC (Bld) 33.2 % Normal 20.5-60.0 [facility] Comment on above: Performed By: #### C BC #### [facility] [address] [place] [address] Dr. Ashlie Hills MANUAL DIFF REQ NO Normal [facility] Comment on above: Performed By: #### C BC #### [facility] [address] [place] [address] Dr. Ashlie Hills MCH (RBC) [Entitic mass] 28.0 pg Normal 26.7-34.0 [facility] Comment on above: Performed By: #### C BC #### [facility] [address] [place] [address] Dr. Ashlie Hills MCHC (RBC) [Mass/Vol] 32.1 g/dL Normal 29.9-35.2 [facility] Comment on above: Performed By: #### C BC #### [facility] [address] [place] [address] Dr. Ashlie Hills MCV (RBC) [Entitic vol] 87.3 fL Normal 81.0-99.0 [facility] Comment on above: Performed By: #### C BC #### [facility] [address] [place] [address] Dr. Ashlie Hills MONO # 0.8 103/ul Normal 0.3-0.8 [facility] Comment on above: Performed By: #### C BC #### [facility] [address] [place] [address] Dr. Ashlie Hills Monocytes/100 WBC (Bld) 5.7 % Normal 1.7-12.0 [facility] Comment on above: Performed By: #### C BC #### [facility] [address] [place] [address] Dr. Ashlie Hills NEUT # 7.8 103/ul Critically high 1.4-6.5 [facility] Comment on above: Performed By: #### C BC #### [facility] [address] [address] [address] Ashlie Hills Neutrophils/100 WBC (Bld) 57.5 % Normal 43.0-75.0 [facility] Comment on above: Performed By: #### C BC #### [facility] [address] [address] [address] Ashlie Hills Platelet mean volume (Bld) [Entitic vol] 12.0 fL Normal 9.5-13.5 [facility] Comment on above: Performed By: #### C BC #### [facility] [address] [address] [address] Ashlie Hills PLT 152 103/ul Normal 150-450 [facility] Comment on above: Performed By: #### C BC #### [facility] [address] [place] [address] Dr. Ashlie Hills RBC 6.00 106/ul Critically high 4.20-5.40 [facility] Comment on above: Performed By: #### C BC #### [facility] [address] [place] [address] Dr. Ashlie Hills WBC 13.6 103/ul Critically high 4.0-11.0 [facility] Comment on above: Performed By: #### C BC #### [facility] [address] [place] [address] Dr. Ashlie Hills LIPID PROFILEon 11-22-2022 CHOL-HDL RATIO NORM SEE BELOW Normal [facility] Comment on above: Result Comment: 3.3 - 4.4 LOW RISK 4.4 - 7.1 AVERAGE RISK 7.1 - 11.0 MODERATE RISK >11.0 HIGH RISK Performed By: #### C BC #### [facility] [address] [place] [address] Dr. Ashlie Hills Cholesterol [Mass/Vol] 139 mg/dL Normal <=200 [facility] Comment on above: Performed By: #### C BC #### [facility] [address] [place] [address] Dr. Ashlie Hills Cholesterol in HDL [Mass/Vol] 35 mg/dL Critically low 40-60 [facility] Comment on above: Performed By: #### C BC #### [facility] [address] [address] [address] Ashlie Hills Cholesterol in LDL [Mass/Vol] 67.4 mg/dL Normal [facility] Comment on above: Performed By: #### C BC #### [facility] [address] [address] [address] Ashlie Hills Cholesterol.total/Gianna sterol in HDL [Mass ratio] 4.0 {ratio} Normal [facility] Comment on above: Performed By: #### C BC #### [facility] [address] [place] [address] Dr. Ashlie Hills HDL NORMAL > or = 60 mg/dl - LOW CARDIOVASCULAR RISK <40 mg/dl - HIGH CARDIOVASCULAR RISK Normal [facility] Comment on above: Performed By: #### C BC #### [facility] [address] [place] [address] Dr. Ashlie Hills LDL CALC NORMAL SEE BELOW Normal [facility] Comment on above: Result Comment: <100 mg/dl OPTIMAL 100 - 129 mg/dl NEAR OR ABOVE OPTIMAL 130 - 159 mg/dl BORDERLINE HIGH 160 - 189 mg/dl HIGH >190 mg/dl VERY HIGH Performed By: #### C BC #### [facility] [address] [place] [address] Dr. Ashlie Hills Triglyceride [Mass/Vol] 183 mg/dL Critically high <=150 [facility] Comment on above: Performed By: #### C BC #### [facility] [address] [place] [address] Dr. Ashlie Hills VLDL CALC 36.6 mg/dL Normal [facility] Comment on above: Performed By: #### C BC #### [facility] [address] [place] [address] Dr. Ashlie Hills MG MAMM SCREEN 3D ALEX CADon 11-22-2022 MG MAMM SCREEN 3D ALEX CAD Patient: MITZI MACIAS Exam Date: 11/22/2022 : 1970 Gender:F Ordering : SAYDA BLAS [employer] Admission #: [id number] Family : Order #: [id number] CLICK HERE TO VIEW EXAM RADIOLOGY REPORT [...] unknown cancer at age 75. LOCATION: [facility] BREAST COMPOSITION: Almost entirely fatty. FINDINGS: [...] M.D. on 11/22/2022 at 12:09 Normal [facility] PROF 14(COMP METB)on 023 Albumin [Mass/Vol] 3.0 g/dL Critically low 3.4-5.0 Th e [facility] Comment on above: Performed By: #### C BC #### [facility] [address], [place] [address] Dr. Ashlie Hills Albumin/Globulin [Mass ratio] 0.6 {ratio} Normal [facility] Comment on above: Performed By: #### C BC #### [facility] [address], [place] [address] Dr. Ashlie Hills ALP [Catalytic activity/Vol] 68 U/L Normal 46-116 [facility] Comment on above: Performed By: #### C BC #### [facility] [address] [address] [address] Ashlie Hills ALT [Catalytic activity/Vol] 14 U/L Normal 14-59 [facility] Comment on above: Performed By: #### C BC #### [facility] [address] [place] [address] Dr. Ashlie Hills Anion gap [Moles/Vol] 12.1 mmol/L Normal Th [facility] Comment on above: Performed By: #### C BC #### [facility] [address] [address] [address] Ashlie Hills AST [Catalytic activity/Vol] 9 U/L Critically low 15-37 [facility] Comment on above: Performed By: #### C BC #### [facility] [address] [place] [address] Dr. Ashlie Hills Bilirubin [Mass/Vol] 0.4 mg/dL Normal 0.2-1.0 [facility] Comment on above: Performed By: #### C BC #### [facility] [address] [place] [address] Dr. Ashlie Hills Calcium [Mass/Vol] 9.0 mg/dL Normal 8.5-10.1 [facility] Comment on above: Performed By: #### C BC #### [facility] [address] [place] [address] Dr. Ashlie Hills Chloride [Moles/Vol] 105 mmol/L Normal 98-107 [facility] Comment on above: Performed By: #### C BC #### [facility] [address] [place] [address] Dr. Ashlie Hills CO2 [Moles/Vol] 30.7 mmol/L Normal 21.0-32.[address] [facility] Comment on above: Performed By: #### C BC #### [facility] [address] [place] [address] Dr. Ashlie Hills Creatinine [Mass/Vol] 0.77 mg/dL Normal 0.55-1.02 [facility] Comment on above: Performed By: #### C BC #### [facility] [address] [place] [address] Dr. Ashlie Hills EGFR-AF TONGAN >60 Normal >=60 [facility] Comment on above: Performed By: #### C BC #### [facility] [address] [address] [address] Ashlie Hills EGFR-NON AF TONGAN >60 Normal >=60 [facility] Comment on above: Performed By: #### C BC #### [facility] [address] [address] [address] Ashlie Hills Globulin (S) [Mass/Vol] 4.8 g/dL Normal [facility] Comment on above: Performed By: #### C BC #### [facility] [address] [address] [address] Ashlie Hills Glucose [Mass/Vol] 162 mg/dL Critically high 74-106 [facility] Comment on above: Performed By: #### C BC #### [facility] [address] [address] [address] Ashlie Hills Potassium [Moles/Vol] 3.8 mmol/L Normal 3.5-5.1 [facility] Comment on above: Performed By: #### C BC #### [facility] [address] [address] [address] Ashlie Hills Protein [Mass/Vol] 7.8 g/dL Normal 6.4-8.2 [facility] Comment on above: Performed By: #### C BC #### [facility] [address] [address] [address] Ashlie Hills Sodium [Moles/Vol] 144 mmol/L Normal 136-145 [facility] Comment on above: Performed By: #### C BC #### [facility] [address] [address] [address] Ashlie Hills Urea nitrogen [Mass/Vol] 24.0 mg/dL Critically high 7.0-18.0 [facility] Comment on above: Performed By: #### C BC #### [facility] [address] [address] [address] Ashlie Hills Urea nitrogen/Creatinine [Mass ratio] 31.2 mg/mg Normal [facility] Comment on above: Performed By: #### C BC #### [facility] [address] [place] [address] Dr. Ashlie Hills CBC AUTO DIFFon 10-05-2022 BASO # 0.1 103/ul Normal 0.0-0.1 [facility] Comment on above: Performed By: #### C BC #### [facility] [address] [place] [address] Dr. Ashlie Hills Basophils/100 WBC (Bld) 0.6 % Normal 0.2-2.0 [facility] Comment on above: Performed By: #### C BC #### [facility] [address] [place] [address] Dr. Ashlie Hills EO # 0.3 103/ul Normal 0.0-0.7 [facility] Comment on above: Performed By: #### C BC #### [facility] [address] [place] [address] Dr. Ashlie Hills Eosinophils/100 WBC (Bld) 2.1 % Normal 0.9-7.0 [facility] Comment on above: Performed By: #### C BC #### [facility] [address] [place] [address] Dr. Ashlie Hills Erythrocyte distribution width (RBC) [Ratio] 15.9 % Critically high 11.0-15.0 [facility] Comment on above: Performed By: #### C BC #### [facility] [address] [place] [address] Dr. Ashlie Hills Hematocrit (Bld) [Volume fraction] 51.8 % Critically high 36.0-48.0 [facility] Comment on above: Performed By: #### C BC #### [facility] [address] [place] [address] Dr. Ashlie Hills Hemoglobin (Bld) [Mass/Vol] 16.6 g/dL Critically high 12.0-16.0 [facility] Comment on above: Performed By: #### C BC #### [facility] [address] [place] [address] Dr. Ashlie Hills IG # 0.03 10e3/ul Normal 0.00-0.03 [facility] Comment on above: Performed By: #### C BC #### [facility] [address] [place] [address] Dr. Ashlie Hills IG % 0.2 % Normal 0.0-0.5 [facility] Comment on above: Performed By: #### C BC #### [facility] [address] [place] [address] Dr. Ashlie Hills LYMPH # 3.9 103/ul Critically high 1.2-3.8 [facility] Comment on above: Performed By: #### C BC #### [facility] [address] [place] [address] Dr. Ashlie Hills Lymphocytes/100 WBC (Bld) 31.7 % Normal 20.5-60.0 [facility] Comment on above: Performed By: #### C BC #### [facility] [address] [place] [address] Dr. Ashlie Hills MANUAL DIFF REQ NO Normal [facility] Comment on above: Performed By: #### C BC #### [facility] [address] [place] [address] Dr. Ashlie Hills MCH (RBC) [Entitic mass] 27.9 pg Normal 26.7-34.0 [facility] Comment on above: Performed By: #### C BC #### [facility] [address] [place] [address] Dr. Ashlie Hills MCHC (RBC) [Mass/Vol] 32.0 g/dL Normal 29.9-35.2 [facility] Comment on above: Performed By: #### C BC #### [facility] [address] [place] [address] Dr. Ashlie Hills MCV (RBC) [Entitic vol] 87.1 fL Normal 81.0-99.0 [facility] Comment on above: Performed By: #### C BC #### [facility] [address] [place] [address] Dr. Ashlie Hills MONO # 0.7 103/ul Normal 0.3-0.8 [facility] Comment on above: Performed By: #### C BC #### [facility] [address] [address] [address] Ashlie Hills Monocytes/100 WBC (Bld) 5.8 % Normal 1.7-12.0 [facility] Comment on above: Performed By: #### C BC #### [facility] [address] [address] [address] Ashlie Hills NEUT # 7.3 103/ul Critically high 1.4-6.5 [facility] Comment on above: Performed By: #### C BC #### [facility] [address] [address] [address] Ashlie Hills Neutrophils/100 WBC (Bld) 59.6 % Normal 43.0-75.0 [facility] Comment on above: Performed By: #### C BC #### [facility] [address] [place] [address] Dr. Ashlie Hills Platelet mean volume (Bld) [Entitic vol] 11.7 fL Normal 9.5-13.5 [facility] Comment on above: Performed By: #### C BC #### [facility] [address] [address] [address] Ashlie Hills PLT 117 103/ul Critically low 150-450 [facility] Comment on above: Performed By: #### C BC #### [facility] [address] [address] [address] Ashlie Hills RBC 5.95 106/ul Critically high 4.20-5.40 [facility] Comment on above: Performed By: #### C BC #### [facility] [address] [address] [address] Ashlie Hills WBC 12.3 103/ul Critically high 4.0-11.0 [facility] Comment on above: Performed By: #### C BC #### [facility] [address] [place] [address] ABD/PELV W CONon [...] by: RICCO PICKARD Date: 2022-10-05 13:13 Normal [facility] ER URINE PROFILEon 3 Bilirubin Ql (U) Negative Normal NEGATIVE [facility] Comment on above: Performed By: #### P OCGLUC #### [facility] [address] [place] [address] Dr. Ashlie Hills Clarity (U) CLEAR Normal CLEAR [facility] Comment on above: Performed By: #### P OCGLUC #### [facility] [address] [address] [address] Ashlie Hills Color (U) YELLOW Normal YELLOW [facility] Comment on above: Performed By: #### P OCGLUC #### [facility] [address] [address] [address] Ashlie HOBBS A micrscopic examination will be performed if indicated. Normal [facility] Comment on above: Performed By: #### P OCGLUC #### [facility] [address] [address] [address] Ashlie Hills Glucose Ql (U) Negative Normal NEGATIVE [facility] Comment on above: Performed By: #### P OCGLUC #### [facility] [address] [address] [address] Ashlie Hills Hemoglobin Ql (U) Negative Normal NEGATIVE [facility] Comment on above: Performed By: #### P OCGLUC #### [facility] [address] [address] [address] Ashlie Hills Ketones Ql (U) Negative Normal NEGATIVE [facility] Comment on above: Performed By: #### P OCGLUC #### [facility] [address] [address] [address] Ashlie Hills LEUKOCYTES Negative Normal NEGATIVE [facility] Comment on above: Performed By: #### P OCGLUC #### [facility] [address] [address] [address] Ashlie Hills Nitrite Ql (U) Negative Normal NEGATIVE [facility] Comment on above: Performed By: #### P OCGLUC #### [facility] [address] [address] [address] Ashlie Hills pH (U) 6.0 [pH] Normal 5-9 [facility] Comment on above: Performed By: #### P OCGLUC #### [facility] [address] [place] [address] Dr. Ashlie Hills Protein (U) [Mass/Vol] 100 mg/dL Abnormal NEGAT YURY/ TRACE [facility] Comment on above: Performed By: #### P OCGLUC #### [facility] [address] [place] [address] Dr. Ashlie Hills SPEC GRAVITY 1.010 Normal 1.005-<=1.025 [facility] Comment on above: Performed By: #### P OCGLUC #### [facility] [address] [place] [address] Dr. Ashlie Hills UR MICRO IND INDICATED Normal [facility] Comment on above: Performed By: #### P OCGLUC #### [facility] [address] [place] [address] Dr. Ashlie Hills Urobilinogen Qn (U) 1.0 {Little'U}/dL Normal 0.2 - 1. 0 [facility] Comment on above: Performed By: #### P OCGLUC #### [facility] [address] [place] [place] [address] Dr. Ashlie Hills LIPASEon 10-05-2022 Lipase [Catalytic activity/Vol] 1771.0 U/L Critically high 73.0-393.0 [facility] Comment on above: Performed By: #### C BC #### [facility] [address] [place] [address] Dr. Ashlie Hills PREG HCG QUALon 10-05-2022 , QUAL Negative Normal NEGATIVE [facility] Comment on above: Performed By: #### P OCGLUC #### [facility] [address] [place] [address] Dr. Ashlie Hills PROF 14(COMP METB)on 023 Albumin [Mass/Vol] 3.2 g/dL Critically low 3.4-5.0 [facility] Comment on above: Performed By: #### C BC #### [facility] [address] [place] [address] Dr. Ashlie Hills Albumin/Globulin [Mass ratio] 0.7 {ratio} Normal [facility] Comment on above: Performed By: #### C BC #### [facility] [address] [place] [address] Dr. Ashlie Hills ALP [Catalytic activity/Vol] 70 U/L Normal 46-116 [facility] Comment on above: Performed By: #### C BC #### [facility] [address] [place] [address] Dr. Ashlie Hills ALT [Catalytic activity/Vol] 11 U/L Critically low 14-59 [facility] Comment on above: Performed By: #### C BC #### [facility] [address] [place] [address] Dr. Ashlie Hills Anion gap [Moles/Vol] 10.3 mmol/L Normal [facility] Comment on above: Performed By: #### C BC #### [facility] [address] [place] [address] Dr. Ashlie Hills AST [Catalytic activity/Vol] 11 U/L Critically low 15-37 [facility] Comment on above: Performed By: #### C BC #### [facility] [address] [place] [address] Dr. Ashlie Hills Bilirubin [Mass/Vol] 0.9 mg/dL Normal 0.2-1.0 [facility] Comment on above: Performed By: #### C BC #### [facility] [address] [address] [address] Ashlie Hills Calcium [Mass/Vol] 9.3 mg/dL Normal 8.5-10.1 [facility] Comment on above: Performed By: #### C BC #### [facility] [address] [place] [address] Dr. Ashlie Hills Chloride [Moles/Vol] 105 mmol/L Normal 98-107 [facility] Comment on above: Performed By: #### C BC #### [facility] [address] [place] [address] Dr. Ashlie Hills CO2 [Moles/Vol] 30.6 mmol/L Normal 21.0-32.0 [facility] Comment on above: Performed By: #### C BC #### [facility] [address] [place] [address] Dr. Ashlie Hills Creatinine [Mass/Vol] 0.62 mg/dL Normal 0.55-1.02 [facility] Comment on above: Performed By: #### C BC #### [facility] [address] [place] [address] Dr. Ashlie Hills EGFR-AF TONGAN >60 Normal >=60 [facility] Comment on above: Performed By: #### C BC #### [facility] [address] [place] [address] Dr. Ashlie Hills EGFR-NON AF TONGAN >60 Normal >=60 [facility] Comment on above: Performed By: #### C BC #### [facility] [address] [place] [address] Dr. Ashlie Hills Globulin (S) [Mass/Vol] 4.6 g/dL Normal [facility] Comment on above: Performed By: #### C BC #### [facility] [address] [address] [address] Ashlie Hills Glucose [Mass/Vol] 85 mg/dL Normal 74-106 [facility] Comment on above: Performed By: #### C BC #### [facility] [address] [address] [address] Ashlie Hills Potassium [Moles/Vol] 3.9 mmol/L Normal 3.5-5.1 [facility] Comment on above: Performed By: #### C BC #### [facility] [address] [address] [address] Ashlie Hills Protein [Mass/Vol] 7.8 g/dL Normal 6.4-8.2 [facility] Comment on above: Performed By: #### C BC #### [facility] [address] [place] [address] Dr. Ashlie Hills Sodium [Moles/Vol] 142 mmol/L Normal 136-145 [facility] Comment on above: Performed By: #### C BC #### [facility] [address] [place] [address] Dr. Ashlie Hills Urea nitrogen [Mass/Vol] 12.0 mg/dL Normal 7.0-18.0 [facility] Comment on above: Performed By: #### C BC #### [facility] [address] [place] [address] Dr. Ashlie Hills Urea nitrogen/Creatinine [Mass ratio] 19.4 mg/mg Normal [facility] Comment on above: Performed By: #### C BC #### [facility] [address] [address] [address] Ashlie Hills URINE MICROSCOPIC ONLYon BACTERIA TRACE Abnormal NONE SEEN The [facility] Comment on above: Performed By: #### P OCGLUC #### [facility] [address] [address] [address] Ashlie Hills Bacteria identified Cx Nom (U) NOT INDICATED Normal [facility] Comment on above: Performed By: #### P OCGLUC #### [facility] [address] [place] [address] Dr. Ashlie Hills CAST NONE SEEN Normal NONE SEEN The [facility] Comment on above: Performed By: #### P OCGLUC #### [facility] [address] [place] [address] Dr. Ashlie Hills Crystals LM Nom (Urine sed) NONE SEEN Normal NONE SEEN [facility] Comment on above: Performed By: #### P OCGLUC #### [facility] [address] [place] [address] Dr. Ashlie Hills Epithelial cells LM Ql (Urine sed) MODERATE Abnormal NONE SEEN /RARE [facility] Comment on above: Performed By: #### P OCGLUC #### [facility] [address] [place] [address] Dr. Ashlie Hills MUCOUS NONE SEEN Normal NONE SEEN The [facility] Comment on above: Performed By: #### P OCGLUC #### [facility] [address] [place] [address] Dr. Ashlie Hills RBC 0-2 Normal 0-2 [facility] Comment on above: Performed By: #### P OCGLUC #### [facility] [address] [place] [address] Dr. Ashlie Hills WBC 0-2 Abnormal NONE SEEN [facility] Comment on above: Performed By: #### P OCGLUC #### [facility] [address] [place] [address] Dr. Ashlie Hills [facility]06 SARS-CoV-2 (COVID-19) RNA MADDY+probe Ql (Unsp spec) Detected Abnormal NOT DETECTED The [facility] Comment on above: Result Comment: This test is not yet approved or cleared by the [place] FDA. When there are no FDA-approved or cleared tests available, and other criteria are met, FDA can make tests available under an emergency access mechanism called an Emergency Use Authorization (EUA). The EUA for this test is supported by the [employer] [place] Specialist of Health and Human Service's declaration [...] used). Performed By: #### C VDAGS #### [facility] [address] [place] [address] Dr. Ashlie Hills INFLUENZA A AND B AGon 09-21 [facility] SEE BELOW Normal [facility] Comment on above: Result Comment: Nega tive for Flu A protein angiten. Infection due to Flu A cannot be ruled out. Flu A angiten in the sample may be below the detection limit of the test. Performed By: #### I NFLUAB #### [facility] [address] [place] [address] Dr. Ashlie Hills [facility] SEE BELOW Normal [facility] Comment on above: Result Comment: Nega tive for Flu B protein antigen. Infection due to Flu B cannot be ruled out. Flu B antigen in the sample may be below the detection limit of the test. Performed By: #### I NFLUAB #### [facility] [address] [place] [address] Dr. Ashlie Hills INFLUENZA A AG Negative Normal NEGATIVE SEE COMMENT [facility] Comment on above: Performed By: #### I NFLUAB #### [facility] [address] [place] [address] Dr. Ashlie Hills INFLUENZA B AG Negative Normal NEGATIVE SEE COMMENT [facility] Comment on above: Performed By: #### I NFLUAB #### [facility] [address] [place] [address] ABD/PELV W CONon [...] dating back to at least 10/21/2018, unchanged. [email or web address].ncbi.[facility].nih.gov/pmc/artic [email or web address]/ Electronically authenticated by: COLLIN HUERTAS Date: 2022-07-27 14:56 Normal [facility] CREATININEon 07-18-2022 Creatinine [Mass/Vol] 0.81 mg/dL Normal 0.55-1.02 [facility] Comment on above: Performed By: #### C BC #### [facility] [address] [place] [address] Dr. Ashlie Hills EGFR-AF TONGAN >60 Normal >=60 [facility] Comment on above: Performed By: #### C BC #### [facility] [address] [place] [address] Dr. Ashlie Hills EGFR-NON AF TONGAN >60 Normal >=60 [facility] Comment on above: Performed By: #### C BC #### [facility] [address] [place] [address] LOW EXT W [...] PATRICIA VELOZ Date: 2022-07-18 14:58 Normal [facility] XR KNEE LT 1_2 Von 3 [...] HATTIE BAUTISTA Date: 2022-07-18 12:00 Normal [facility] PCR [facility]on 06-09 SARS-CoV-2 (COVID-19) RNA MADDY+probe Ql (Unsp spec) Not detected Normal NOT DETECTED [facility] Comment on above: Result Comment: This test is not yet approved or cleared by the [place] FDA. When there are no FDA-approved or cleared tests available, and other criteria are met, FDA can make tests available under an emergency access mechanism called an Emergency Use Authorization (EUA). The EUA for this test is supported by the [place] of Health and Human Service's (HHS's) declaration [...] SARS-CoV-2. Performed By: #### C BC #### [facility] [address] [place] [address] Dr. Ashlie Hills INFLUENZA A AND B AGon 07-06 INFLUANE[facility] SEE BELOW Normal [facility] Comment on above: Result Comment: Nega tive for Flu A protein angiten. Infection due to Flu A cannot be ruled out. Flu A angiten in the sample may be below the detection limit of the test. Performed By: #### C BC #### [facility] [address] [place] [address] Dr. Ashlie Hills INFLUBNEGH SEE BELOW Normal [facility] Comment on above: Result Comment: Nega tive for Flu B protein antigen. Infection due to Flu B cannot be ruled out. Flu B antigen in the sample may be below the detection limit of the test. Performed By: #### C BC #### [facility] [address] [place] [address] Dr. Ashlie Hills INFLUENZA A AG Negative Normal NEGATIVE SEE COMMENT [facility] Comment on above: Performed By: #### C BC #### [facility] [address] [place] [address] Dr. Ashlie Hills INFLUENZA B AG Negative Normal NEGATIVE SEE COMMENT [facility] Comment on above: Performed By: #### C BC #### [facility] [address] [place] [address] Dr. Ashlie Hills POINT OF CARE GLUCOSEon 04-08 Glucose [Mass/Vol] 108 mg/dL Critically high 74-106 [facility] Comment on above: Performed By: #### C BC #### [facility] [address] [place] [address] Dr. Ashlie Hills RAGHU by IFAon 03-07-2022 Antinuclear Antibodies, IFA Negative Normal [facility] Comment on above: Result Comment: Nega tive <1:80 Borderline 1:80 Positive >1:80 ICAP nomenclature: AC-0 For more information about Hep-2 cell patterns use ANApatterns.org, the official website for the International Consensus on Antinuclear Antibody (RAGHU) Patterns (ICAP). Performed By: #### A NAIFA #### [facility] [address] [place] [address] Dr. Ashlie Hills IMMUNOFIXATION (TREVON), URINEo n 03-07-2022 TREVON Interpretation:U Comment Normal [facility] Comment on above: Result Comment: No m onoclonality detected. Performed By: #### C BC #### [facility] [address] [place] [address] Dr. Ashlie Hills IMMUNOFIXATION(TREVON),PROTEIN ELEC(PE),FREon 03-07-2022 Albumin [Mass/Vol] 3.0 g/dL Normal 2.9-4.4 [facility] Comment on above: Performed By: #### I NFLUAB #### [facility] [address] [address] [address] Ashlie Hills Albumin/Globulin [Mass ratio] 0.8 {ratio} Normal 0.7-1.7 [facility] Comment on above: Performed By: #### I NFLUAB #### [facility] [address] [place] [address] Dr. Ashlie Hills Wksav-9-Kpozwmsc 0.3 g/dL Normal 0.0-0.4 [facility] Comment on above: Performed By: #### I NFLUAB #### [facility] [address] [address] [address] Ashlie Hills Vmukn-3-Yhbnsyfv 1.0 g/dL Normal 0.4-1.0 [facility] Comment on above: Performed By: #### I NFLUAB #### [facility] [address] [address] [address] Ashlie Hills Beta Globulin 1.8 g/dL Critically high 0.7-1.3 [facility] Comment on above: Performed By: #### I NFLUAB #### [facility] [address] [address] [address] Ashlie Hills Free [place] Lt Chains,S 45.2 mg/L Critically high 3.3-19.4 [facility] Comment on above: Performed By: #### I NFLUAB #### [facility] [address] [address] [address] Ashlie Hills Free Lambda Lt Chains,S 40.3 mg/L Critically high 5.7-26. 3 [facility] Comment on above: Performed By: #### I NFLUAB #### [facility] [address] [place] [address] Dr. Ashlie Hills Gamma Globulin 0.8 g/dL Normal 0.4-1.8 [facility] Comment on above: Performed By: #### I NFLUAB #### [facility] [address] [place] [address] Dr. Ashlie Hills Globulin (S) [Mass/Vol] 3.9 g/dL Normal 2.2-3.9 [facility] Comment on above: Performed By: #### I NFLUAB #### [facility] [address] [place] [address] Dr. Ashlie Hills Immunofixation Result, Serum Comment Normal [facility] Comment on above: Result Comment: No m onoclonality detected. Performed By: #### I NFLUAB #### [facility] [address] [place] [address] Dr. Ashlie Hills Immunoglobulin A, Qn, Serum 776 mg/dL Critically high 87-352 [facility] Comment on above: Performed By: #### I NFLUAB #### [facility] [address] [place] [address] Dr. Ashlie Hills Immunoglobulin G, Qn, Serum 955 mg/dL Normal 586-1602 [facility] Comment on above: Performed By: #### I NFLUAB #### [facility] [address] [place] [address] Dr. Ashlie Hills Immunoglobulin M, Qn, Serum 39 mg/dL Normal 26-217 [facility] Comment on above: Performed By: #### I NFLUAB #### [facility] [address] [place] [address] Dr. Ashlie Hills [place]/Lambda Ratio, S 1.12 Normal 0.26-1.65 [facility] Comment on above: Performed By: #### I NFLUAB #### [facility] [address] [place] [address] Dr. Ashlie Hills M-Bright Not Observed Normal Not Observed [facility] Comment on above: Performed By: #### I NFLUAB #### [facility] [address] [place] [address] Dr. Ashlie Hills PDF . Normal [facility] Comment on above: Performed By: #### I NFLUAB #### [facility] [address] [place] [address] Dr. Ashlie Hills Please note: Comment Normal [facility] Comment on above: Result Comment: Prot ein electrophoresis scan will follow via computer, mail, or hvac r instructor delivery. Performed By: #### I NFLUAB #### [facility] [address] [place] [address] Dr. Ashlie Hills Protein [Mass/Vol] 6.9 g/dL Normal 6.0-8.5 [facility] Comment on above: Performed By: #### I NFLUAB #### [facility] [address] [place] [address] Dr. Ashlie Hills C-PEPTIDE, SERUMon C-Peptide, Serum 3.1 ng/mL Normal 1.1-4.4 [facility] Comment on above: Result Comment: C-Pe ptide reference interval is for fasting patients. Performed By: #### C PEPT #### [facility] [address] [place] [address] Dr. Ashlie Hills HEP B SURFACE ANTIGEN SCREEN on 03-04-2022 HBsAg Screen Negative Normal Negative [facility] Comment on above: Performed By: #### C BC #### [facility] [address] [place] [address] Dr. Ashlie Hills HEPATITIS C VIRUS AB W/ REFL EX QUANTon 03-04-2022 HCV AB <0.1 Normal 0.0-0.9 [facility] Comment on above: Performed By: #### I NFLUAB #### [facility] [address] [place] [address] Dr. Ashlie Hills Interpretation: Comment Normal [facility] Comment on above: Result Comment: Nega tive Not infected with HCV, unless recent infection is suspected or other evidence exists to indicate HCV infection. Performed By: #### I NFLUAB #### [facility] [address] [address] [address] Ashlie Hills MICROALBUMIN/ CREATININE RAT IOon 03-04-2022 Albumin, Urine 367.4 ug/mL Normal Not Estab. [facility] Comment on above: Performed By: #### C BC #### [facility] [address] [address] [address] Ashlie Hills Albumin/ Creatinine Ratio 239 mg/g creat Critically high 0-29 [facility] Comment on above: Result Comment: Norm al: 0 - 29 Moderately increased: 30 - 300 Severely increased: >300 Performed By: #### C BC #### [facility] [address] [address] [address] Ashlie Hills Creatinine, Urine 153.9 mg/dL Normal Not Estab. [facility] Comment on above: Performed By: #### C BC #### [facility] [address] [address] [address] Ashlie Hills VIT D 25-OH LABCORPon 2021 Vitamin D, 25-Hydroxy <4.0 Critically low 30.0-100.0 [facility] Comment on above: Result Comment: Graciela min D deficiency has been defined by the Addy of Medicine and an Endocrine Society practice guideline as a level of serum 25-OH vitamin D less than 20 ng/mL (1,2). The Endocrine Society went on to further define vitamin D insufficiency as a level between 21 and 29 ng/mL (2). 1. IOM ([employer]y of Medicine). 2010. Dietary reference intakes for calcium and D. [place]: The National Academies Press. 2. Lynda MF, Keely [place], Leandra LOPEZ, et al. Evaluation, treatment, and prevention of vitamin D deficiency: an Endocrine Society clinical practice guideline. JCEM. 2010; 96(7):1911-30. Performed By: #### C BC #### [facility] [address] [address] [address] Ashlie Hills GLYCOHEMOGLOBIN A1Con 2021 ADA RECOMMENDATION SEE BELOW Normal [facility] Comment on above: Result Comment: ADA RECOMMENDED LIMIT 4.0 - 6.0 ADA THERAPEUTIC TARGET < 7.0 ACTION SUGGESTED > 7.0 Performed By: #### C VDAGS #### [facility] [address] [place] [address] Dr. Ashlie Hills Glucose [Mass/Vol] 295 mg/dL Normal [facility] Comment on above: Performed By: #### C VDAGS #### [facility] [address] [place] [address] Dr. Ashlie Hills HbA1c (Bld) [Mass fraction] 11.9 % Critically high 4.5-6.2 [facility] Comment on above: Performed By: #### C VDAGS #### [facility] [address] [place] [address] Dr. Ashlie Hills HEMOGRAM AND PLATELon 2021 Hematocrit (Bld) [Volume fraction] 56.3 % Critically high 36.0-48.0 [facility] Comment on above: Performed By: #### C VDAGS #### [facility] [address] [place] [address] Dr. Ashlie Hills Hemoglobin (Bld) [Mass/Vol] 18.0 g/dL Critically high 12.0-16.0 [facility] Comment on above: Performed By: #### C VDAGS #### [facility] [address] [place] [address] Dr. Ashlie Hills MCH (RBC) [Entitic mass] 29.5 pg Normal 26.7-34.0 [facility] Comment on above: Performed By: #### C VDAGS #### [facility] [address] [place] [address] Dr. Ashlie Hills MCHC (RBC) [Mass/Vol] 32.0 g/dL Normal 29.9-35.2 [facility] Comment on above: Performed By: #### C VDAGS #### [facility] [address] [place] [address] Dr. Ashlie Hills MCV (RBC) [Entitic vol] 92.1 fL Normal 81.0-99.0 [facility] Comment on above: Performed By: #### C VDAGS #### [facility] [address] [address] [address] Ashlie Hills PLT 123 103/ul Critically low 150-450 [facility] Comment on above: Performed By: #### C VDAGS #### [facility] [address] [address] [address] Ashlie Hills RBC 6.11 106/ul Critically high 4.20-5.40 [facility] Comment on above: Performed By: #### C VDAGS #### [facility] [address] [place] [address] Dr. Ashlie Hills WBC 16.4 103/ul Critically high 4.0-11.0 [facility] Comment on above: Performed By: #### C VDAGS #### [facility] [address] [place] [address] Dr. Ashlie Hills LIPID PROFILEon 03-03-2022 CHOL-HDL RATIO NORM SEE BELOW Normal [facility] Comment on above: Result Comment: 3.3 - 4.4 LOW RISK 4.4 - 7.1 AVERAGE RISK 7.1 - 11.0 MODERATE RISK >11.0 HIGH RISK Performed By: #### C VDAGS #### [facility] [address] [place] [address] Dr. Ashlie Hills Cholesterol [Mass/Vol] 159 mg/dL Normal <=200 [facility] Comment on above: Performed By: #### C VDAGS #### [facility] [address] [place] [address] Dr. Ashlie Hills Cholesterol in HDL [Mass/Vol] 40 mg/dL Normal 40-60 [facility] Comment on above: Performed By: #### C VDAGS #### [facility] [address] [place] [address] Dr. Ashlie Hills Cholesterol in LDL [Mass/Vol] 81.8 mg/dL Normal [facility] Comment on above: Performed By: #### C VDAGS #### [facility] [address] [place] [address] Dr. Ashlie Hills Cholesterol.total/Gianna sterol in HDL [Mass ratio] 4.0 {ratio} Normal [facility] Comment on above: Performed By: #### C VDAGS #### [facility] [address] [address] [address] Ashlie Hills HDL NORMAL > or = 60 mg/dl - LOW CARDIOVASCULAR RISK <40 mg/dl - HIGH CARDIOVASCULAR RISK Normal [facility] Comment on above: Performed By: #### C VDAGS #### [facility] [address] [address] [address] Ashlie Hills LDL CALC NORMAL SEE BELOW Normal [facility] Comment on above: Result Comment: <100 mg/dl OPTIMAL 100 - 129 mg/dl NEAR OR ABOVE OPTIMAL 130 - 159 mg/dl BORDERLINE HIGH 160 - 189 mg/dl HIGH >190 mg/dl VERY HIGH Performed By: #### C VDAGS #### [facility] [address] [place] [address] Dr. Ashlie Hills Triglyceride [Mass/Vol] 186 mg/dL Critically high <=150 [facility] Comment on above: Performed By: #### C VDAGS #### [facility] [address] [address] [address] Ashlie Hills VLDL CALC 37.2 mg/dL Normal [facility] Comment on above: Performed By: #### C VDAGS #### [facility] [address] [place] [address] Dr. Ashlie Hills RENAL FUNCTION PANELon 03-03 Albumin [Mass/Vol] 3.1 g/dL Critically low 3.4-5.0 [facility] Comment on above: Performed By: #### C BC #### [facility] [address] [place] [address] Dr. Ashlie Hills Calcium [Mass/Vol] 9.2 mg/dL Normal 8.5-10.1 [facility] Comment on above: Performed By: #### C BC #### [facility] [address] [address] [address] Ashlie Hills Chloride [Moles/Vol] 102 mmol/L Normal 98-107 [facility] Comment on above: Performed By: #### C BC #### [facility] [address] [address] [address] Ashlie Hills CO2 [Moles/Vol] 31.9 mmol/L Normal 21.0-32.0 [facility] Comment on above: Performed By: #### C BC #### [facility] [address] [address] [address] Ashlie Hills Creatinine [Mass/Vol] 0.68 mg/dL Normal 0.55-1.02 [facility] Comment on above: Performed By: #### C BC #### [facility] [address] [place] [address] Dr. Ashlie Hills EGFR-AF TONGAN >60 Normal >=60 [facility] Comment on above: Performed By: #### C BC #### [facility] [address] [place] [address] Dr. Ashlie Hills EGFR-NON AF TONGAN >60 Normal >=60 [facility] Comment on above: Performed By: #### C BC #### [facility] [address] [place] [address] Dr. Ashlie Hills Glucose [Mass/Vol] 131 mg/dL Critically high 74-106 [facility] Comment on above: Performed By: #### C BC #### [facility] [address] [place] [address] Dr. Ashlie Hills Phosphate [Mass/Vol] 4.0 mg/dL Normal 2.6-4.7 [facility] Comment on above: Performed By: #### C BC #### [facility] [address] [place] [address] Dr. Ashlie Hills Potassium [Moles/Vol] 4.0 mmol/L Normal 3.5-5.1 [facility] Comment on above: Performed By: #### C BC #### [facility] [address] [place] [address] Dr. Ashlie Hills Sodium [Moles/Vol] 141 mmol/L Normal 136-145 [facility] Comment on above: Performed By: #### C BC #### [facility] [address] [place] [address] Dr. Ashlie Hills Urea nitrogen [Mass/Vol] 17.0 mg/dL Normal 7.0-18.0 [facility] Comment on above: Performed By: #### C BC #### [facility] [address] [place] [address] Dr. Ashlie Hills UA RANDOM W/MICROSCOPICon BACTERIA NONE SEEN Normal NONE SEEN The [facility] Comment on above: Performed By: #### I NFLUAB #### [facility] [address] [place] [address] Dr. Ashlie Hills Bilirubin Ql (U) Negative Normal NEGATIVE The [facility] Comment on above: Performed By: #### I NFLUAB #### [facility] [address] [place] [address] Dr. Ashlie Hills CAST NONE SEEN Normal NONE SEEN [facility] Comment on above: Performed By: #### I NFLUAB #### [facility] [address] [place] [address] Dr. Ashlie Hills Clarity (U) CLEAR Normal CLEAR The [facility] Comment on above: Performed By: #### I NFLUAB #### [facility] [address] [place] [address] Dr. Ashlie Hills Color (U) YELLOW Normal YELLOW The [facility] Comment on above: Performed By: #### I NFLUAB #### [facility] [address] [place] [address] Dr. Ashlie Hills Crystals LM Nom (Urine sed) NONE SEEN Normal NONE SEEN The [facility] Comment on above: Performed By: #### I NFLUAB #### [facility] [address] [place] [address] Dr. Ashlie Hills Epithelial cells LM Ql (Urine sed) FEW Abnormal NONE SEEN /RARE The [facility] Comment on above: Performed By: #### I NFLUAB #### [facility] [address] [place] [address] Dr. Ashlie Hills Glucose Ql (U) Negative Normal NEGATIVE The [facility] Comment on above: Performed By: #### I NFLUAB #### [facility] [address] [address] [address] Ashlie Hills Hemoglobin Ql (U) Negative Normal NEGATIVE The [facility] Comment on above: Performed By: #### I NFLUAB #### [facility] [address] [place] [address] Dr. Ashlie Hills Ketones Ql (U) Negative Normal NEGATIVE The [facility] Comment on above: Performed By: #### I NFLUAB #### [facility] [address] [place] [address] Dr. Ashlie Hills LEUKOCYTES Negative Normal NEGATIVE [facility] Comment on above: Performed By: #### I NFLUAB #### [facility] [address] [place] [address] Dr. Ashlie Hills MUCOUS NONE SEEN Normal NONE SEEN The [facility] Comment on above: Performed By: #### I NFLUAB #### [facility] [address] [place] [address] Dr. Ashlie Hills Nitrite Ql (U) Negative Normal NEGATIVE The [facility] Comment on above: Performed By: #### I NFLUAB #### [facility] [address] [place] [address] Dr. Ashlie Hills pH (U) 5.5 [pH] Normal 5-9 [facility] Comment on above: Performed By: #### I NFLUAB #### [facility] [address] [place] [address] Dr. Ashlie Hills RBC 0-2 Normal 0-2 [facility] Comment on above: Performed By: #### I NFLUAB #### [facility] [address] [place] [address] Dr. Ashlie Hills SPEC GRAVITY >=1.030 Abnormal 1.005-<=1.025 The [facility] Comment on above: Performed By: #### I NFLUAB #### [facility] [address] [place] [address] Dr. Ashlie Hills UA PROTEIN 100 mg/dl Abnormal NEGATIVE/ TRACE The [facility] Comment on above: Performed By: #### I NFLUAB #### [facility] [address] [place] [address] Dr. Ashlie Hills Urobilinogen Qn (U) 0.2 {Little'U}/dL Normal 0.2 - 1. 0 The [facility] Comment on above: Performed By: #### I NFLUAB #### [facility] [address] [place] [address] Dr. Ashlie Hills WBC NONE SEEN Normal NONE SEEN The [facility] Comment on above: Performed By: #### I NFLUAB #### [facility] [address] [address] [address] Ashlie Hills URIC ACID SERUMon 03-03-2022 Urate [Mass/Vol] 5.0 mg/dL Normal 2.6-6.[address] [facility] Comment on above: Performed By: #### I NFLUAB #### [facility] [address] [place] [address] Dr. Ashlie Hills URINE T PROTEIN CREAT RATIOo n 03-03-2022 Protein (U) [Mass/Vol] 77.9 mg/dL Critically high <=12.0 [facility] Comment on above: Performed By: #### C VDAGS #### [facility] [address] [address] [address] Ashlie Hills UR PROT CREAT RAT 0.44 Normal The [facility] Comment on above: Performed By: #### C VDAGS #### [facility] [address] [place] [address] Dr. Ashlie Hills URINE CREAT 175.15 mg/dL Normal 20.00-300.00 The [facility] Comment on above: Performed By: #### C VDAGS #### [facility] [address] [address] [address] Ashlie Hills CULTURE URINEon 12-25-2021 CULTURE URINE Culture Observations: GREATER THAN TWO ORGANISMS PRESENT, HEAVILY MIXED. PLEASE RESUBMIT CLEAN CATCH MID-STREAM URINE IF CLINICALLY INDICATED. Normal The [facility] Comment on above: Performed By: #### I NFLUAB #### [facility] [address] [place] [address] Dr. Ashlie Hills CBC AUTO DIFFon 12-24-2021 BASO # 0.1 103/ul Normal 0.0-0.1 [facility] Comment on above: Performed By: #### C BC #### [facility] [address] [place] [address] Dr. Ashlie Hills Basophils/100 WBC (Bld) 0.5 % Normal 0.2-2.0 [facility] Comment on above: Performed By: #### C BC #### [facility] [address] [place] [address] Dr. Ashlie Hills EO # 0.4 103/ul Normal 0.0-0.7 [facility] Comment on above: Performed By: #### C BC #### [facility] [address] [place] [address] Dr. Ashlie Hills Eosinophils/100 WBC (Bld) 2.4 % Normal 0.9-7.0 [facility] Comment on above: Performed By: #### C BC #### [facility] [address] [place] [address] Dr. Ashlie Hills Erythrocyte distribution width (RBC) [Ratio] 14.1 % Normal 11.0-15.0 [facility] Comment on above: Performed By: #### C BC #### [facility] [address] [place] [address] Dr. Ashlie Hills Hematocrit (Bld) [Volume fraction] 55.9 % Critically high 36.0-48.0 [facility] Comment on above: Performed By: #### C BC #### [facility] [address] [place] [address] Dr. Ashlie Hills Hemoglobin (Bld) [Mass/Vol] 17.9 g/dL Critically high 12.0-16.0 [facility] Comment on above: Performed By: #### C BC #### [facility] [address] [place] [address] Dr. Ashlie Hills IG # 0.06 10e3/ul Critically high 0.00-0.03 [facility] Comment on above: Performed By: #### C BC #### [facility] [address] [place] [address] Dr. Ashlie Hills IG % 0.4 % Normal 0.0-0.5 [facility] Comment on above: Performed By: #### C BC #### [facility] [address] [place] [address] Dr. Ashlie Hills LYMPH # 5.8 103/ul Critically high 1.2-3.8 [facility] Comment on above: Performed By: #### C BC #### [facility] [address] [place] [address] Dr. Ashlie Hills Lymphocytes/100 WBC (Bld) 35.4 % Normal 20.5-60.0 [facility] Comment on above: Performed By: #### C BC #### [facility] [address] [place] [address] Dr. Ashlie Hills MANUAL DIFF REQ NO Normal [facility] Comment on above: Performed By: #### C BC #### [facility] [address] [place] [address] Dr. Ashlie Hills MCH (RBC) [Entitic mass] 29.4 pg Normal 26.7-34.0 [facility] Comment on above: Performed By: #### C BC #### [facility] [address] [place] [address] Dr. Ashlie Hills MCHC (RBC) [Mass/Vol] 32.0 g/dL Normal 29.9-35.2 [facility] Comment on above: Performed By: #### C BC #### [facility] [address] [place] [address] Dr. Ashlie Hills MCV (RBC) [Entitic vol] 91.8 fL Normal 81.0-99.0 [facility] Comment on above: Performed By: #### C BC #### [facility] [address] [place] [address] Dr. Ashlie Hills MONO # 0.8 103/ul Normal 0.3-0.8 [facility] Comment on above: Performed By: #### C BC #### [facility] [address] [place] [address] Dr. Ashlie Hills Monocytes/100 WBC (Bld) 4.8 % Normal 1.7-12.0 [facility] Comment on above: Performed By: #### C BC #### [facility] [address] [address] [address] Ashlie Hills NEUT # 9.3 103/ul Critically high 1.4-6.5 [facility] Comment on above: Performed By: #### C BC #### [facility] [address] [address] [address] Ashlie Hills Neutrophils/100 WBC (Bld) 56.5 % Normal 43.0-75.0 [facility] Comment on above: Performed By: #### C BC #### [facility] [address] [address] [address] Ashlie Hills Platelet mean volume (Bld) [Entitic vol] 12.9 fL Normal 9.5-13.5 [facility] Comment on above: Performed By: #### C BC #### [facility] [address] [place] [address] Dr. Ashlie Hills PLT 127 103/ul Critically low 150-450 [facility] Comment on above: Performed By: #### C BC #### [facility] [address] [address] [address] Ashlie Hills RBC 6.09 106/ul Critically high 4.20-5.40 [facility] Comment on above: Performed By: #### C BC #### [facility] [address] [place] [address] Dr. Ashlie Hills WBC 16.4 103/ul Critically high 4.0-11.0 [facility] Comment on above: Performed By: #### C BC #### [facility] [address] [place] [address] ABD/PELVIS WO CONon [...] Severe right hip degenerative change. Normal [facility] URINE PROFILEon 2 Bilirubin Ql (U) Negative Normal NEGATIVE The [facility] Comment on above: Performed By: #### E RUR, UMICRO #### [facility] [address] [place] [address] Dr. Ashlie Hills Clarity (U) CLEAR Normal CLEAR [facility] Comment on above: Performed By: #### E RUR, UMICRO #### [facility] [address] [place] [address] Dr. Ashlie Hills Color (U) DK. ORANGE Abnormal YELLOW [facility] Comment on above: Performed By: #### E RUR, UMICRO #### [facility] [address] [place] [address] Dr. Ashlie HOBBS A micrscopic examination will be performed if indicated. Normal [facility] Comment on above: Performed By: #### E RUR, UMICRO #### [facility] [address] [place] [address] Dr. Ashlie Hills Glucose Ql (U) 250 mg/dl Abnormal NEGATIVE [facility] Comment on above: Performed By: #### E RUR, UMICRO #### [facility] [address] [place] [address] Dr. Ashlie Hills Hemoglobin Ql (U) Negative Normal NEGATIVE [facility] Comment on above: Performed By: #### E RUR, UMICRO #### [facility] [address] [place] [address] Dr. Ashlie Hills Ketones Ql (U) Negative Normal NEGATIVE The [facility] Comment on above: Performed By: #### E RUR, UMICRO #### [facility] [address] [place] [address] Dr. Ashlie Hills LEUKOCYTES Negative Normal NEGATIVE [facility] Comment on above: Performed By: #### E RUR, UMICRO #### [facility] [address] [place] [address] Dr. Ashlie Hills Nitrite Ql (U) Negative Normal NEGATIVE [facility] Comment on above: Performed By: #### E RUR, UMICRO #### [facility] [address] [place] [address] Dr. Ashlie Hills pH (U) 5.0 [pH] Normal 5-9 [facility] Comment on above: Performed By: #### MADELINE DIAZRO #### [facility] [address] [place] [address] Dr. Ashlie Hills Protein (U) [Mass/Vol] 100 mg/dL Abnormal NEGAT YURY/ TRACE [facility] Comment on above: Performed By: #### Tracey LYMAN, UMICRO #### [facility] [address] [place] [address] Dr. Ashlie Hills SPEC GRAVITY >=1.030 Abnormal 1.005-<=1.025 [facility] Comment on above: Performed By: #### Tracey LYMAN, MADELINERO #### [facility] [address] [place] [address] Dr. Ashlie Hills UR MICRO IND INDICATED Normal [facility] Comment on above: Performed By: #### Tracey LYMAN UMHARRIETRO #### [facility] [address] [place] [address] Dr. Ashlie Hills Urobilinogen Qn (U) 1.0 {Little'U}/dL Normal 0.2 - 1. 0 [facility] Comment on above: Performed By: #### Tracey LYMAN, MADELINERO #### [facility] [address] [place] [address] Dr. Ashlie Hills PROF CHEM 8 (BAS METB)on Anion gap [Moles/Vol] 12.1 mmol/L Normal [facility] Comment on above: Performed By: #### I NFLUAB #### [facility] [address] [place] [address] Dr. Ashlie Hills Calcium [Mass/Vol] 9.0 mg/dL Normal 8.5-10.1 [facility] Comment on above: Performed By: #### I NFLUAB #### [facility] [address] [place] [address] Dr. Ashlie Hills Chloride [Moles/Vol] 101 mmol/L Normal 98-107 [facility] Comment on above: Performed By: #### I NFLUAB #### [facility] [address] [address] [address] Ashlie Hills CO2 [Moles/Vol] 29.1 mmol/L Normal 21.0-32.0 [facility] Comment on above: Performed By: #### I NFLUAB #### [facility] [address] [address] [address] Ashlie Hills Creatinine [Mass/Vol] 0.86 mg/dL Normal 0.55-1.02 [facility] Comment on above: Performed By: #### I NFLUAB #### [facility] [address] [place] [address] Dr. Ashlie Hills EGFR-AF TONGAN >60 Normal >=60 [facility] Comment on above: Performed By: #### I NFLUAB #### [facility] [address] [address] [address] Ashlie Hills EGFR-NON AF TONGAN >60 Normal >=60 [facility] Comment on above: Performed By: #### I NFLUAB #### [facility] [address] [address] [address] Ashlie Hills Glucose [Mass/Vol] 236 mg/dL Critically high 74-106 [facility] Comment on above: Performed By: #### I NFLUAB #### [facility] [address] [address] [address] Ashlie Hills Potassium [Moles/Vol] 4.2 mmol/L Normal 3.5-5.1 [facility] Comment on above: Performed By: #### I NFLUAB #### [facility] [address] [address] [address] Ashlie Hills Sodium [Moles/Vol] 138 mmol/L Normal 136-145 [facility] Comment on above: Performed By: #### I NFLUAB #### [facility] [address] [address] [address] Ashlie Hills Urea nitrogen [Mass/Vol] 11.0 mg/dL Normal 7.0-18.0 [facility] Comment on above: Performed By: #### I NFLUAB #### [facility] [address] [place] [address] Dr. Ashlie Hills Urea nitrogen/Creatinine [Mass ratio] 12.8 mg/mg Normal [facility] Comment on above: Performed By: #### I NFLUAB #### [facility] [address] [place] [address] Dr. Ashlie Hills URINE MICROSCOPIC ONLYon BACTERIA SMALL Abnormal NONE SEEN [facility] Comment on above: Performed By: #### E RUR, UMICRO #### [facility] [address] [place] [address] Dr. Ashlie Hills Bacteria identified Cx Nom (U) INDICATED Normal [facility] Comment on above: Performed By: #### E RUR, UMICRO #### [facility] [address] [place] [address] Dr. Ashlie Hills CAST NONE SEEN Normal NONE SEEN [facility] Comment on above: Performed By: #### E RUR, UMICRO #### [facility] [address] [place] [address] Dr. Ashlie Hills Crystals LM Nom (Urine sed) NONE SEEN Normal NONE SEEN [facility] Comment on above: Performed By: #### E RUR, UMICRO #### [facility] [address] [place] [address] Dr. Ashlie Hills Epithelial cells LM Ql (Urine sed) MODERATE Abnormal NONE SEEN /RARE [facility] Comment on above: Performed By: #### E RUR, UMICRO #### [facility] [address] [place] [address] Dr. Ashlie Hills MUCOUS NONE SEEN Normal NONE SEEN [facility] Comment on above: Performed By: #### E RUR, UMICRO #### [facility] [address] [place] [address] Dr. Ashlie Hills RBC 0-2 Normal 0-2 [facility] Comment on above: Performed By: #### E NURA, UMICRO #### [facility] [address] [place] [address] Dr. Ashlie Hills WBC 0-2 Abnormal NONE SEEN [facility] Comment on above: Performed By: #### E EVONNE LYMAN #### [facility] [address] [address] [address] Ashlie Hills YEAST PRESENT Abnormal NONE SEEN [facility] Comment on above: Performed By: #### E EVONNE LYMAN #### [facility] [address] [address] [address] Ashlie Hills HIP RIGHT 1 OR 2 VWS WITH PE LVISon 07-20-2020 HIP RIGHT 1 OR 2 VWS WITH PELVIS [facility] Department of Radiology [address] [place] [address] Patient Name: MITZI MACIAS : [...] MRI. Electronically signed: Pipo Acevedo. Transcribed by: [email or web address], User Resident: Electronically Signed by: PIPO ACEVEDO @ 07/20/2020 03:45 PM Normal [facility] Comment on above: Order Comment: evalu ate Vital Signs Date Time Vital Sign Value Performing Clinician Facility 06-19-2024 11:26-0500 Body height 170 cm Jonathan Hudson MD Work Phone: [facility] 06-19-2024 11:26-0500 Body mass index (BMI) [Ratio] 58.7 kg/m2 Jonathan Hudson MD Work Phone: [facility] 06-19-2024 11:26-0500 Body temperature 98.01 [degF] Jonathan Hudson MD Work Phone: [facility] 06-19-2024 11:26-0500 Body weight 169.65 kg Jonathan Hudson MD Work Phone: [facility] 06-19-2024 11:26-0500 Diastolic blood pressure 70 mm[Hg] Jonathan Hudson MD Work Phone: [facility] 06-19-2024 11:26-0500 Heart rate 78 /min Jonathan Hudson MD Work Phone: [facility] 06-19-2024 11:26-0500 Respiratory rate 20 /min Jonathan Hudson MD Work Phone: [facility] 06-19-2024 11:26-0500 Systolic blood pressure 160 mm[Hg] Jonathan Hudson MD Work Phone: [facility] 06-11-2024 10:00-0500 Blood Pressure Location Elbert ARAUZ [facility] 06-11-2024 10:00-0500 Diastolic blood pressure 68 mm[Hg] Elbert ARAUZ [facility] 06-11-2024 10:00-0500 Heart rate 76 /min Elbert ARAUZ [facility] 06-11-2024 10:00-0500 Systolic blood pressure 132 mm[Hg] Elbert ARAUZ [facility] 05-27-2024 10:20-0500 Body height 170.2 cm Rain Souza MD Work Phone: [facility] 05-27-2024 10:20-0500 Body mass index (BMI) [Ratio] 56.7 kg/m2 Rain Souza MD Work Phone: [facility] 05-27-2024 10:20-0500 Body weight 164.2 kg Rain Souza MD Work Phone: [facility] 05-27-2024 10:20-0500 Diastolic blood pressure 66 mm[Hg] Rain Souza MD Work Phone: [facility] 05-27-2024 10:20-0500 Heart rate 72 /min Rain Souza MD Work Phone: [facility] 05-27-2024 10:20-0500 Respiratory rate 16 /min Rain Souza MD Work Phone: [facility] 05-27-2024 10:20-0500 Systolic blood pressure 128 mm[Hg] Rain Souza MD Work Phone: [facility] 04-14-2024 10:27-0400 Body height 165.1 cm Mckayla Blas SOLARIS ADMINISTRATOR Work Phone: [facility] 04-14-2024 10:27-0400 Body mass index (BMI) [Ratio] 61.01 kg/m2 Mckayla Blas SOLARIS ADMINISTRATOR Work Phone: [facility] 04-14-2024 10:27-0400 Body temperature 98.49 [degF] Mckayla Blas SOLARIS ADMINISTRATOR Work Phone: [facility] 04-14-2024 10:27-0400 Body weight 166.29 kg Mckayla Blas SOLARIS ADMINISTRATOR Work Phone: [facility] 04-14-2024 10:27-0400 Diastolic blood pressure 80 mm[Hg] Mckayla Blas SOLARIS ADMINISTRATOR Work Phone: [facility] 04-14-2024 10:27-0400 Heart rate 77 /min Mckayla Blas SOLARIS ADMINISTRATOR Work Phone: [facility] 04-14-2024 10:27-0400 Respiratory rate 19 /min Mckayla Blas SOLARIS ADMINISTRATOR Work Phone: [facility] 04-14-2024 10:27-0400 SaO2% (BldA) [Mass fraction] 92 % Mckayla Blas SOLARIS ADMINISTRATOR Work Phone: [facility] 04-14-2024 10:27-0400 Systolic blood pressure 116 mm[Hg] Mckayla Blas SOLARIS ADMINISTRATOR Work Phone: [facility] 03-08-2022 15:00-0400 Body height 170.18 cm Stephanie Tico Other [email or web address] Other 03-08-2022 15:00-0400 Body temperature 97.6 [degF] Stephanie Tico Other [email or web address] Other 03-08-2022 15:00-0400 Diastolic blood pressure 72 mm[Hg] Stephanie Tico Other [email or web address] Other 03-08-2022 15:00-0400 Respiratory rate 20 /min Stephanie Tico Other [email or web address] Other 03-08-2022 15:00-0400 SaO2% (BldA) [Mass fraction] 91 % Stephanie Tico Other [email or web address] Other 03-08-2022 15:00-0400 Systolic blood pressure 131 mm[Hg] Stephanie Tico Other [email or web address] Other 02-20-2022 09:20-0400 Body height 170.18 cm Stephanie Tico Other [email or web address] Other 02-20-2022 09:20-0400 Body temperature 96.5 [degF] Stephanie Tico Other [email or web address] Other 02-20-2022 09:20-0400 Diastolic blood pressure 69 mm[Hg] Stephanie Tico Other [email or web address] Other 02-20-2022 09:20-0400 Respiratory rate 20 /min Stephanie Tico Other [email or web address] Other 02-20-2022 09:20-0400 SaO2% (BldA) [Mass fraction] 91 % Stephanie Tico Other [email or web address] Other 02-20-2022 09:20-0400 Systolic blood pressure 129 mm[Hg] Stephanie Tico Other [email or web address] Other 02-06-2022 10:24-0400 Blood Pressure Location Elbert ARAUZ [facility] 02-06-2022 10:24-0400 Diastolic blood pressure 76 mm[Hg] Elbert ARAUZ [facility] 02-06-2022 10:24-0400 Heart rate 70 /min Elbert ARAUZ [facility] 02-06-2022 10:24-0400 Respiratory rate 16 /min Elbert ARAUZ [facility] 02-06-2022 10:24-0400 Systolic blood pressure 134 mm[Hg] Elbert ARAUZ [facility] Encounters Encounter Date Encounter Type Care Provider Facility Start: 08-08-2024 End: 08-08-[address] [facility] Start: 07-17-2024 End: 07-17-2024 Refill Mckayla Blas SOLARIS ADMINISTRATOR Work Phone: [facility] Start: 07-14-2024 End: 07-14-2024 Office outpatient visit 25 minutes Mckayla Blas SOLARIS ADMINISTRATOR Work Phone: [facility] Comment on [...] 07-07-2024 Refill Mckayla Blas NP Work Phone: [facility] Comment on above: Bilateral lower extr emity edema Start: 06-19-2024 End: 06-19-2024 Office outpatient new 45 minutes Jonathan Hudson MD Work Phone: [facility] Comment on above: BMI 50.0-59.9, adult (CMS-HCC) (Primary Dx); Morbid obesity (CMS-HCC); Smoking Start: 06-13-2024 End: 06-13-2024 Telephone encounter Jonathan Hudson MD Work Phone: [facility] Start: 06-11-2024 ambulatory Elbert ARAUZ Facili ty:[facility] Start: 06-11-2024 End: 06-11-2024 Patient encounter procedure Elbert ARAUZ [facility] [place] Start: 05-27-2024 End: 05-27-2024 Bamboo flowsheet Rain Souza MD Work Phone: [facility] Start: 05-27-2024 End: 05-27-2024 Bamboo flowsheet Rain Souza MD Work Phone: [facility] Start: 05-27-2024 End: 05-27-2024 ambulatory RAIN SOUZA Not Available Start: 05-27-2024 End: 05-27-2024 Office outpatient visit 25 minutes Rain Souza MD Work Phone: [facility] Comment on above: Type 2 diabetes [...] 04-14-2024 End: 04-14-2024 Bamboo flowsheet Mckayla Blas SOLARIS ADMINISTRATOR Work Phone: [facility] Start: 04-14-2024 End: 04-14-2024 Bamboo flowsheet Mckayla Blas SOLARIS ADMINISTRATOR Work Phone: [facility] Start: 04-14-2024 End: 04-14-2024 Office outpatient visit 25 minutes Mckayla Blas SOLARIS ADMINISTRATOR Work Phone: [facility] Comment on above: Primary hypertension (CMS/HCC) (Primary [...] unspecified (CMS/HCC); Pulmonary emphysema, unspecified emphysema type (CMS/[facility]); Bilateral lower extremity edema; Tobacco user; Hyperpigmentation of skin Start: 04-14-2024 End: 04-14-2024 ambulatory MCKAYLA AICHHOLZ Not Available Start: 04-05-2024 End: 04-06-2024 Refill Mckayla Wan SOLARIS ADMINISTRATOR Work Phone: [facility] Comment on above: Hyperlipidemia, unsp ecified (CMS/HCC); Bilateral lower extremity edema Vitamin D deficiency , unspecified Start: 01-17-2024 Patient encounter procedure Rain Souza MD Work Phone: [facility] Start: 01-17-2024 End: 01-17-2024 ambulatory MCKAYLA AICHHOLZ Not Available Start: 11-15-2023 End: 11-15-2023 ambulatory MCKAYLA AICHHOLZ Not Available Start: 11-14-2023 End: 11-14-2023 ambulatory [facility] Start: 11-01-2023 End: 11-01-2023 ambulatory MCKAYLA AICHHOLZ Not Available Start: 09-27-2023 End: 09-27-2023 ambulatory MCKAYLA AICHHOLZ Not Available Start: 08-17-2023 Refill Mckayla Aichholz SOLARIS ADMINISTRATOR Work Phone: [facility] Comment on above: Vaginal yeast infect ion (Primary Dx) Start: 08-14-2023 Refill Mckayla Aichholz SOLARIS ADMINISTRATOR Work Phone: [facility] Comment on above: Type 2 diabetes asiya itus with unspecified complications ([facility]); Edema, unspecified; Edema Start: 12-05-2022 ambulatory NARENDRANATH LAKSHMIPATHY . Facility:[facility] Start: 12-05-2022 End: 12-06-2022 Evaluation and management of inpatient UMBERTO ALONDRA . Facility:[facility] Start: 11-23-2022 End: 11-23-2022 ambulatory PREPARED FOODS SUPERVISOR MCKAYLA AICHHOLZ Facility:[facility] Start: 11-22-2022 End: 11-23-2022 ambulatory PREPARED FOODS SUPERVISOR MCKAYLA AICHHOLZ Facility:[facility] Start: 11-17-2022 End: 11-18-2022 ambulatory SUBHASH GASPAR . Facility:[facility] Start: 11-15-2022 End: 11-15-2022 Patient encounter procedure SARAH VEGA [facility] Start: 10-05-2022 End: 10-05-2022 ambulatory MARIANO LOZANO . Facility:[facility] Start: 09-21-2022 End: 09-21-2022 ambulatory PREPARED FOODS SUPERVISOR MCKAYLA AICHHOLZ Facility:[facility] Start: 09-14-2022 ambulatory RAFAEL GONGORA Facilit y:[facility]1 Start: 08-24-2022 End: [address] CHAPARRO MORTENSEN . Facility:[facility] Start: 08-21-2022 End: 08-22-2022 ambulatory HATTIE Ramsey ZOHRABANDAR Facility:[facility] Start: 07-27-2022 End: 07-28-2022 ambulatory CECILIA BJORNRUCHI . Facility:[facility] Start: 07-18-2022 End: 07-19-2022 ambulatory CECILIA MILANRUCIH . Facility:[facility] Start: 07-18-2022 End: 07-19-2022 ambulatory HATTIE Ramsey ZOHRABANDAR Facility:[facility] Start: 07-06-2022 End: 07-06-2022 ambulatory SAYDA MEJIARAVIJuanis Facility:[facility] Start: 05-11-2022 End: 05-12-2022 ambulatory GIL VALENZUELA . Facility:[facility] Start: 04-25-2022 End: 04-25-[address] CHAPARRO MORTENSEN . Facility:[facility] Start: 04-20-2022 End: 04-21-2022 ambulatory GIL VALENZUELA . Facility:[facility] Start: 03-08-2022 End: 03-08-2022 ambulatory Stephanie Tico Other [facility] Other Start: 03-08-2022 Office outpatient vi sit 15 minutes Stephanie Tico [facility] Start: 03-03-2022 End: 03-04-2022 ambulatory PREPARED FOODS SUPERVISOR MCKAYLA WAN Facility:[facility] Start: 02-20-2022 End: 02-20-2022 ambulatory Stephanie Tico Other [facility] Other Start: 02-20-2022 Office outpatient ne w 45 minutes Stephanie Tico [facility] Start: 02-06-2022 End: 02-06-2022 Patient encounter procedure Elbert ARAUZ [facility] Start: 01-19-2022 End: 01-20-2022 ambulatory GIL VALENZUELA . Facility:[facility] Start: 12-24-2021 End: 12-24-2021 ambulatory OLE RAMIREZ Facility:[facility] Start: 08-26-2020 End: 09-10-2020 Patient encounter procedure VITHAL SHENDGE Facility:[facility] Start: 05-28-2020 Patient encounter status [facility]: Start: 10-30-2019 End: 10-30-2019 Emergency department patient visit JAMES Reis [facility] Start: 10-30-2019 End: 10-30-2019 Emergency department patient visit James Benavidez [facility] Start: 11-02-2016 Preoperative state Stephanie Tico Other [facility] Other Procedures Date Procedure Procedure Detail Performing Clinician Start: 05-27-2024 Gluc bld gluc mntr d ev cleared fda spec home use Rain Souza MD Work Phone: Start: 05-12-2024 [facility] CREATININE Generic External Data Provider Start: 12-14-2023 Mammography Rain urena MD Work Phone: Start: 11-22-2022 Mammography Mckayla clifford NP Work Phone: Start: 10-08-2015 Microscopic observat ion [Identifier] in Cervix by Cyto stain Mckayla Blas SOLARIS ADMINISTRATOR Work Phone: H/O: hysterectomy Elbert LARA Laparoscopic cholecystectomy Elbert ARAUZ Operative procedure on foot Elbert ARAUZ Plan of Treatment Date Care Activity Detail Author Start: 08-03-2025 Screening for malign ant neoplasm of colon [facility] Start: 07-14-2025 Glaucoma screening Diabetes: R etinopathy Screening [facility] Start: 05-13-2025 Glaucoma screening Diabetes: R etinopathy Screening [facility] Start: 01-16-2025 Medicare Annual Well ness (AWV) Medicare Annual Wellness (AWV) [facility] Start: 12-13-2024 Screening for malign ant neoplasm of breast Mammogram [facility] Start: 11-11-2024 Urine screening for protein Diabetes: Urine Protein Screening [facility] Start: 08-27-2024 End: 08-27-2024 Patient encounter procedure 08/27/2024 5:30 PM EST Office Visit [facility] [address] [place] [address] Mckayla Blas, SOLARIS ADMINISTRATOR [address] [place] [address] [facility] Start: 08-27-2024 Hemoglobin A1c measurement Diabetes: Hemoglobin A1C [facility] Start: 08-26-2024 End: 08-26-2024 Patient encounter procedure 08/26/2024 10:30 AM EST Office Visit [facility] [address] [place] [address] Rain Souza MD [address] [place] [address] [facility] Start: 07-14-2024 End: 07-14-2024 Patient encounter procedure 07/14/2024 6:30 PM EST Office Visit [facility] [address] [place] [address] Mckayla Blas, SOLARIS ADMINISTRATOR [address] [place] [address] [facility] Start: 07-14-2024 End: 07-14-2024 Patient encounter procedure 07/14/2024 10:10 AM EST Office Visit [facility] [address] [place] [address] Rain Souza MD [address] [place] [address] [facility] Start: 06-19-2024 End: 06-19-2024 Patient encounter procedure 06/19/2024 11:10 AM EST Office Visit [facility] [address] [place] [phone] Jonathan Hudson MD [address], [address] [address] [facility] Start: 06-06-2024 Influenza vaccination Influenza Vacc ine (#1) [facility] Comment on above: Postponed from 03/09 (Patient Refused) Start: 05-27-2024 End: 05-27-2024 Patient encounter procedure 05/27/2024 9:50 AM EST Office Visit [facility] [address] [place] [address] Rain Souza MD [address] [place] [address] [facility] Start: 05-17-2024 Hemoglobin A1c measurement Diabetes: Hemoglobin A1C [facility] Start: 05-15-2024 End: 05-15-2024 Chart abstracting 05/15/2024 Abstract [facility] [address] [place] [address] Rain Souza MD [address] [place] [address] [facility] Start: 05-15-2024 End: 05-15-2024 Patient encounter procedure 05/15/2024 11:20 AM EST Office Visit [facility] [address] [place] [address] Rain Souza MD [address] [place] [address] [facility] Start: 04-17-2024 End: 04-17-2024 Patient encounter procedure 04/17/2024 3:40 PM EDT Office Visit [facility] [address] [place] [address] Mckayla Blas, SILVANO [address] [place] [phone] [facility] Start: 04-14-2024 End: 04-14-2024 Patient encounter procedure 04/14/2024 11:00 AM EDT Office Visit [facility] [address] [place] [address] Mckayla Blas, SILVANO [address] [place] [phone] Arrived [facility] Comment on above: Arrived Start: 03-09-2024 COVID-19 Vaccine ( season) COVID-19 Vaccine () [facility] Start: 03-09-2024 Influenza vaccination [facility] Start: 02-19-2024 Hemoglobin A1c measurement Diabetes: Hemoglobin A1C [facility] Start: 11-24-2023 Urine screening for protein Diabetes: Urine Protein Screening [facility] Start: 11-23-2023 Screening for malign ant neoplasm of breast Mammogram [facility] Start: 10-15-2023 End: 10-15-2023 Patient encounter procedure 10/15/2023 4:30 PM EDT Office Visit [facility] [address] [place] [address] Mckayla Blas, SILVANO [address] [place] [address] [facility] Start: 08-09-2023 Hemoglobin A1c measurement Diabetes: Hemoglobin A1C [facility] Start: 05-27-2021 Glaucoma screening Diabetes: R etinopathy Screening [facility] Start: 2020 Administration of varicella zoster vaccine Zoster (Shingles) Vaccine (1 of 2) [facility] Start: 03-09-2020 Influenza vaccination Flu vacc ine (Season Ended) [place], [place] Start: 10-07-2018 Screening for malign ant neoplasm of cervix [facility] Start: 2010 Lipid panel Lipid screen Shantelle Camacho [place], [place] Start: 2000 Screening for malign ant neoplasm of cervix HPV/Cotest [facility] Start: 1991 Screening for malign ant neoplasm of cervix [facility] Start: 1989 DTaP,Tdap and Td Vaccines (1 - Tdap) DTaP,Tdap and Td Vaccines (1 - Tdap) [facility] Start: 1989 DTaP/Tdap/Td vaccine (1 - Tdap) DTaP/Tdap/Td vaccine (1 - Tdap) [place] Start: 1988 Adult BMI Follow Up Plan Adult BMI Follow Up Plan [facility] Start: 1988 Adult BMI Screening Adult BMI Screen ing [facility] Start: 1985 HIV screening HIV screen Shantelle Alvarado [place], [place] Start: 1982 Depression Screening Depression Scre ening [facility] Start: 1982 Tobacco Screening Tobacco Screening [facility] Start: 1970 Medicare Annual Well ness (AWV) Medicare Annual Wellness (AWV) [facility] Start: 1970 Screening for malign ant neoplasm of colon [facility] Immunizations Immunization Date Immunization Notes Care Provider Fa [facility] 05-18-2023 influenza, injectabl e, quadrivalent, contains preservative Mckayla Blas NP Work Phone: [facility] 05-18-2023 influenza virus vacc ine, unspecified formulation Rain Souza MD Work Phone: [facility] 07-19-2021 SARS-CoV-2 (COVID-19 ) mRNA BNT-162b2 audrey VEGA [facility] 10-28-2020 SARS-CoV-2 (COVID-19 ) mRNA BNT-162b2 audrey VEGA [facility] 10-08-2020 SARS-CoV-2 (COVID-19 ) mRNA BNT-162b2 vax SARAH VEGA [facility] 04-16-2017 influenza virus vacc ine, H5N1, A/ (national stockpile) Mckayla Blas SOLARIS ADMINISTRATOR Work Phone: [facility] 04-16-2017 influenza virus vacc ine, unspecified formulation Rain Souza MD Work Phone: [facility] 04-16-2017 influenza, unspecifi ed formulation Elbert ARAUZ [facility] 04-16-2017 pneumococcal polysaccharide vaccine, 23 valent Rain Souza MD Work Phone: [facility] 05-10-2016 influenza virus vacc ine, H5N1, A/ (national stockpile) Mckayla Blas SOLARIS ADMINISTRATOR Work Phone: [facility] 05-10-2016 influenza virus vacc ine, unspecified formulation Rain Souza MD Work Phone: [facility] 05-10-2016 influenza, unspecifi ed formulation Elbert ARAUZ [facility] 05-02-2013 influenza virus vacc ine, whole virus Rain Souza MD Work Phone: [facility] 05-02-2013 influenza, injectabl e, quadrivalent, contains preservative Mckayla Blas NP Work Phone: [facility] 05-02-2013 influenza, whole Elbert ARAMBULA [facility] 01-29-1998 measles, mumps and rubella virus vaccine Rain Souza MD Work Phone: [facility] Payers Date Payer Category Payer Medicare (Managed Care) [employer] [id number] 2023 Private Health Insurance [facility] [id number] 2023-Present [address] [address] [place] [address] [id number] 2023 Medicare [id number] 2023 Private Health Insurance [id number] 2018 Medicaid [id number] 2017 Medicare [id number]. [id number] 2017 Medicare O [employer] MEDICARE [id number] 1970 Unknown [id number] 2.16.840.1.512980.3.579. 2.647 1970 Unknown [id number] 2.16.840.1.990829.3.579. 2.593 1970 Unknown [id number] 2.16.840.1.941866.3.579. 2.593 1970 Unknown [id number] 2.16.840.1.650478.3.579. 2.593 1970 Unknown [id number] 2.16.840.1.693237.3.579. 2.593 1970 Unknown [id number] 2.16.840.1.529671.3.579. 2.593 1970 Unknown [id number] 2.16.840.1.743132.3.579. 2.593 1970 Unknown [id number] 2.16.840.1.216884.3.579. 2.593 1970 Unknown [id number] 2.16.840.1.819083.3.579. 2.593 1970 Unknown [id number] 2.16.840.1.124887.3.579. 2.593 1970 Unknown [id number] 2.16.840.1.683576.3.579. 2.593 1970 Unknown [id number] 2.16.840.1.835603.3.579. 2.593 1970 Unknown [id number] 2.16.840.1.823736.3.579. 2.593 1970 Unknown [id number] 2.16.840.1.797767.3.579. 2.593 1970 Unknown [id number] 2.16.840.1.971880.3.579. 2.593 1970 Unknown [id number] 2.16.840.1.365198.3.579. 2.593 1970 Unknown [id number] 2.16.840.1.244327.3.579. 2.593 1970 Unknown [id number] 2.16.840.1.106758.3.579. 2.593 1970 Unknown [id number] 2.16.840.1.236063.3.579. 2.593 1970 Unknown [id number] 2.16.840.1.364577.3.579. 2.593 1970 Unknown [id number] 2.16.840.1.438226.3.579. 2.593 1970 Unknown [id number] 2.16.840.1.605391.3.579. 2.593 1970 Unknown [id number] 2.16.840.1.384078.3.579. 2.593 1970 Unknown [id number] 2.840.1.967269.3.579. 2.727 1970 Unknown [id number] .840.1.434088.3.579. 2.727 1970 Unknown [id number] 2.840.1.348540.3.579. 2.1259 1970 Unknown [id number] 2.840.1.321722.3.579. 2.1259 1970 Unknown [id number] 2.840.1.037403.3.579. 2.1259 1970 Unknown [id number] 2.840.1.673555.3.579. 2.1259 1970 Unknown [id number] 2.16840.1.928463.3.579. 2.1259 1970 Unknown [id number] 2.16840.1.638768.3.579. 2.1259 1970 Unknown [id number] 2.16840.1.759169.3.579. 2.1259 1959 Medicaid [id number] 1959 Private Health Insurance [id number] 1959 Unknown [id number] ..[id number] Social History Date Type Detail Facility Start: 02-17-2014 End: 07-10-2023 Tobacco smoking status NHIS Current every day smoker [place] Start: 02-17-1994 History of tobacco use Cigarette Smo ker [place] Start: 02-17-2014 End: 07-10-2023 Cigarettes smoked current (pack per day) - Reported [place] Start: 02-17-2014 End: 09-16-2020 Alcohol intake Current drinker of alcohol (finding) [place] Start: 02-17-2014 Alcohol Comment Rare Shantelle Monteiro [place], [place] Start: 1970 Sex Assigned At Not on file [place] Exposure to SARS-CoV -2 (event) Unable to assess [place] Start: 02-06-2022 Tobacco smoking status Smoker (findi ng) [facility] Start: 07-10-2023 End: 01-17-2024 Sex Assigned At Female [facility] Start: 11-15-2022 End: 06-11-2024 Tobacco smoking status Heavy tobacco smoker (finding) [facility] Start: 09-25-2018 End: 07-10-2023 Tobacco use and exposure Smokeless tobacco non-user [facility] Start: 07-10-2023 End: 07-14-2024 Alcohol intake Lifetime non-drinker (finding) [facility] Within the last year , have you been afraid of your partner or ex-partner? No [facility] Do you belong to any clubs or organizations such as congregational groups, unions, fraternal or athletic groups, or [...] [facility] Start: 09-25-2018 Alcohol Comment [email or web address] Start: 02-11-2015 Sex Female (finding) [facility] Medical Equipment Procedure Code Equipment Code Equipment Origin al Text Equipment Identifier Dates [id number] Start: 01-18-2024 USE TO TEST BLOO D SUGAR 4 TIMES DAILY [id number] Start: 07-07-2024 Functional Status Date Assessment Result Facility 06-11-2024 Functional Status N/A [facility] 11-15-2022 Functional Status N/A [facility] 02-06-2022 Functional Status N/A [facility] Clinical Notes 01-19-2022 to 08-08-2024 Mckayla Blas, SOLARIS ADMINISTRATOR - 07/14/2024 7:36 PM ESTMckayla Blas, SOLARIS ADMINISTRATOR - 07/14/2024 7:33 PM Ed Blas NP - 07/14/2024 7:32 PM ESTMckayla Blas, SOLARIS ADMINISTRATOR - 07/14/2024 7:31 PM EST Note Date & Type Note Facility 08-08-[address] Cardiology - [facility] Subjective Mitzi Macias is a [...] syndrome (CMS/HCC) Decreased functional mobility Diabetic neuropathy ([facility]) Easy bruising GERD (gastroesophageal reflux disease) Gout Headache Hyperlipidemia Hypertension Insomnia Kidney stone Left flank pain Mixed incontinence Class 3 severe obesity with serious comorbidity and body mass index (BMI) of 50.0 to 59.9 in adult ([facility]/HCC) Non-seasonal allergic rhinitis Obstructive sleep apnea Other chronic pain PAD (peripheral artery disease) ([facility]) Pneumonia Encounter for screening mammogram for malignant neoplasm of breast Pulmonary hypertension ([facility]/HCC) Radiculopathy, lumbar region Current smoker Type 2 diabetes mellitus with complication, with long-term current use of insulin ([facility]/HCC) Unilateral primary osteoarthritis, right hip Vaginal yeast infection Venous insufficiency Bad odor of urine Critical limb ischemia of right lower extremity ([facility]/HCC) Hyperpigmentation of skin 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 2 diabetes mellitus ([facility]/HCC) Myelolipoma of adrenal gland Venous ulcer of right leg ([facility]) HPI Patient was has history of chronic [...] Diagnosis Date COPD (chronic obstructive pulmonary disease) ([facility]/HCC) Diabetes mellitus ([facility]) Hyperlipidemia Hypertension Sleep apnea Past Surgical History: [...] , Rfl: ergocalciferol (Vitamin D-2) 1.25 MG (31250 Units) capsule, Take 1.25 mg by mouth., [...] and at bedtime., Disp: , Rfl: HYDROcodone-acetaminophen (Caraway) 5-325 mg tablet, TAKE 1 TABLET BY [...] TWICE DAILY, Disp: (more content not included)... [facility] 07-14-2024 History of Present illness Narrative [...] or chew. ergocalciferol (Vitamin D2) 1.25 MG (84856 UT) capsule TAKE 1 CAPSULE BY MOUTH ONE TIME PER WEEK furosemide (LASIX) 40 mg, Oral, Daily furosemide (LASIX) 20 mg, Oral, Daily PRN, Take in the afternoon as needed hydrALAZINE (APRESOLINE) 25 mg, Oral, 2 times daily HYDROcodone-acetaminophen (Caraway) 5-325 MG tablet 1 tablet, 3 times [...] CT Albuminuria 09/17/2023 Angiomyolipoma Anxiety and depression ([facility]) 07/10/2023 Asthma ([facility]) 07/10/2023 Body mass index (BMI) 50.0-59.9, adult ([facility]) Cellulitis of left lower extremity Cervical cancer ([facility]) 09/17/2023 Chronic pain of both knees 09/17/2023 COPD (chronic obstructive pulmonary disease) ([facility]) 07/10/2023 COPD exacerbation ([facility]) 09/17/2023 Decreased functional mobility 09/17/2023 Diabetic neuropathy ([facility]) 07/10/2023 Dietary counseling and surveillance Edema 07/10/2023 Elevated sed rate Elevated WBC count Essential (primary) hypertension ([facility]) GERD (gastroesophageal reflux disease) 09/17/2023 Hyperlipidemia ([facility]) 09/17/2023 Hypertension ([facility]) 07/10/2023 Insomnia 09/17/2023 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 ([facility]) Lower extremity edema 09/17/2023 Mixed hyperlipidemia ([facility]) Morbid (severe) obesity due to excess calories ([facility]) Obstructive sleep apnea 07/10/2023 PAD (peripheral artery disease) ([facility]) 09/17/2023 Pancreatitis 09/17/2023 Pneumonia 09/17/2023 Proteinuria, unspecified Pulmonary hypertension ([facility]) 09/17/2023 Radiculopathy, lumbar region 09/17/2023 Tobacco user 09/17/2023 Type 2 diabetes mellitus with complication, with long-term current use of insulin ([facility]) 07/10/2023 Unilateral primary osteoarthritis, right hip 09/17/2023 [...] List Items Addressed This Visit Diabetic neuropathy ([facility]) Continue with tristan EAST reviewed Fu in 3 months COPD (chronic obstructive pulmonary disease) ([facility]) Stable at this time, no changes in meds Encouraged smoking cessation Cont with dr Yañez Hypertension ([facility]) - Primary Please check blood pressure daily and record DASH diet Limit caffeine Take medication as directed Contact office if chest pain, pressure, dizziness, shortness of breath, swelling legs Recommend slow position changes Current meds: hydralazine, lisinopril, Type 2 diabetes mellitus with complication, with long-term current use of insulin ([facility]) Check blood sugars daily, notify if <70 [...] take over prescribing PAD (peripheral artery disease) ([facility]) Asa, statin Quit smoking BP and DM [...] of the risks of continued smoking: stroke, CT, all forms of cancer, lung disease, and [...] 1 cm to 4 cm in diameter ([facility]) Continue with Urology Kidney stone Continue with Urology Non-seasonal allergic rhinitis Relevant Medications cetirizine (ZyrTEC) 10 MG tablet Critical limb ischemia of right lower extremity ([facility]) Saw vascular, does have narrowing in arteries in legs, and thus the wounds not healing At this point they strongly urge to quit smoking or risk limb amputation Cont asa and statin Also good blood pressure and sugar control Venous ulcer of right leg ([facility]) Encounter for smoking cessation counseling Relevant Medications nicotine (Nicoderm, Step 1) 21 MG/24HR patch Other Visit Diagnoses Type 2 diabetes mellitus with unspecified complications ([facility]) Quitting smokinppd, chantix not helped, ] Face time with pt, spent 15 minutes with pt Associated Problem(s): Tobacco user The patient has been advised of the risks of continued smoking: stroke, CT, all forms of cancer, lung disease, and [...] complication, with long-term current use of insulin ([facility]) Check blood sugars daily, notify if <70 [...] in 3 months documented in this encounter [facility] 06-19-2024 Evaluation + Plan note Associated Problem(s): Venous ulcer of right leg (CMS-HCC) Continue wound care. We will get venous reflux ultrasound. [facility] 06-19-2024 Evaluation + Plan note Associated Problem(s): Smoking Counseled on smoking cessation for at least 3 minutes. She is willing to quit. [facility] 06-19-2024 Miscellaneous Notes Associated Problem(s): Venous ulcer of right leg (CMS-HCC) Continue wound care. We will get venous reflux ultrasound. Associated Problem(s): Smoking Counseled on smoking cessation for at least 3 minutes. She is willing to quit. Associated Problem(s): Critical limb ischemia of right lower extremity (CMS-HCC) We will get PVR and CTA with runoff documented in this encounter [facility] 06-19-2024 Evaluation + Plan note Associated Problem(s): Critical limb ischemia of right lower extremity (CMS-HCC) We will get PVR and CTA with runoff [facility] 06-19-2024 History of Present illness Narrative Images from the original note were not included. To: MCKAYLA BLAS, ORTHOPEDICS PEDIATRIC PHYSICIAN-PREPARED FOODS SUPERVISOR HPI: Mitzi Macias is a 53 [...] left leg COPD (chronic obstructive pulmonary disease) ([facility]) Depression Diabetes mellitus ([facility]) Diabetes mellitus with neuropathy ([facility]) Edema GERD (gastroesophageal reflux disease) Hypertension Morbid obesity ([facility]) Morbid obesity ([facility]) Pneumonia Past Surgical History: Past Surgical History: [...] Resource Strain: Low Risk (07/10/2023) Received from [facility] Overall Financial Resource Strain (CARDIA) Difficulty of Paying Living Expenses: Not hard at all Food Insecurity: No Food Insecurity (07/10/2023) Received from [facility] Hunger Vital Sign Worried About Running Out of Food in the Last Year: Never true Ran Out of Food in the Last Year: Never true Transportation Needs: No Transportation Needs (07/10/2023) Received from [facility] PRAPARE - Transportation Lack of Transportation (Medical): No Lack of Transportation (Non-Medical): No Physical Activity: Insufficiently Active (07/10/2023) Received from [facility] Exercise Vital Sign Days of Exercise per Week: 7 days Minutes of Exercise per Session: 10 min Stress: No Stress Concern Present (07/10/2023) Received from [facility] [employer] - Occupational Stress Questionnaire Feeling of Stress : Only a little Social Connections: Socially Integrated (07/10/2023) Received from [facility] Social Connection and Isolation Panel [NHANES] Frequency of Communication with Friends and Family: Twice a week Frequency of Social Gatherings with Friends and Family: Twice a week Attends [employer] Services: 1 to 4 times per year Active Member of Clubs or Organizations: Yes Attends Club or Organization Meetings: 1 to 4 times per year Marital Status: Interpersonal Safety: Not At Risk (07/10/2023) Received from [facility] Humiliation, Afraid, Rape, and Kick questionnaire Fear of Current or Ex-Partner: No Emotionally Abused: No Physically Abused: No Sexually Abused: No Housing Instability: Unknown (07/10/2023) Received from [facility] Housing Stability Vital Sign Unable to Pay [...] and Plan: Problem List BMI 50.0-59.9, adult ([facility]) - Primary Smoking Current Assessment & Plan Counseled on smoking cessation for at least 3 minutes. She is willing to quit. Morbid obesity (CMS-HCC) Mitzi was seen today for non-par with [facility] dual complete without oon benefits- need i. Diagnoses and all orders for this visit: BMI 50.0-59.9, adult ([facility]) Morbid obesity ([facility]) Smoking Jonathan Hudson MD, SOPHIE, RPVI, FSVS, FACS [facility] This note was created with the assistance of a speech recognition program. While intending to generate a timely document that accurately reflects the content of the visit, no guarantee can be provided that every grammatical or spelling mistake has been or will be identified or corrected. Thank you for your understanding. documented in this encounter [facility] 06-13-2024 Miscellaneous Notes LMVM for patient to bring insurance card to appt so we can see if we are able to see her or she can be proactive and call her insurance before her appt to make sure we are either in network or that she has out of network benefit. documented in this encounter [facility] 06-13-2024 Telephone encounter Note LMVM for patient to bring insurance card to appt so we can see if we are able to see her or she can be proactive and call her insurance before her appt to make sure we are either in network or that she has out of network benefit. [facility] 06-11-2024 Hospital Discharge instructions Patient [...] require a prescription. You can also purchase [id number]-[id number] medicines. Medicines may have nicotine in them [...] and encouragement. Call telephone quitlines, such as 5-579-PVRV-NOW, reach out to support groups, or work [...] provider. Document Revised: 06/16/2022 Document Reviewed: 06/16/2022 [employer] Patient Education 2023 [employer]. 06/11/2024 10:39:22 Dietary Guidelines to Help Prevent [...] include: ?8 oz (237 mL) of milk, txlmkvs-uzdhjzktbpcl-dyhjm milk, and calcium-fortifiedfruit juice. Calcium-fortified means that [...] ?Spinach (cooked), rhubarb, beets, sweet potatoes, and Greenlandic chard. ?Peanuts. ?Potato chips, spanish fries, and baked potatoes with skin on. ?Nuts and nut products. ?Chocolate. If you regularly take a diuretic medicine, make sure to eat at least 1 or 2 servings of fruits or vegetables that are high in potassium each day. These include: ?Avocado. ?Banana. ?Mccormick, prune, carrot, or tomato juice. ?Baked potato. [...] magnesium, fish oil, or vitamin B6. Take [id number]-[id number] and prescription medicines only as told by [...] Casseroles. Pizza. Lasagna. Frozen meals. Potato chips. Rwandan fries. The items listed above may not [...] provider. Document Revised: 10/05/2022 Document Reviewed: 10/05/2022 [employer] Patient Education 2023 [employer]. Follow Up Care 05/06/2024 08:24:56 With:REGLA PHIPPS, Elbert Joya, URL Address: [facility] [address], [place] [address]- When: Unknown [facility] 05-27-2024 History of Present illness Narrative Mitzi [...] or chew. ergocalciferol (Vitamin D2) 1.25 MG (74409 UT) capsule TAKE 1 CAPSULE BY MOUTH ONE TIME PER WEEK furosemide (LASIX) 20 mg, Oral, Daily PRN, Take in the afternoon as needed furosemide (LASIX) 40 mg, Oral, Daily Glucose Blood (ACCU-CHEK JAQUI PLUS ) 4 times daily hydrALAZINE (APRESOLINE) 25 mg, Oral, 2 times daily HYDROcodone-acetaminophen (Caraway) 5-325 MG tablet 1 tablet, 3 times [...] CT Albuminuria 09/17/2023 Angiomyolipoma Anxiety and depression ([facility]) 07/10/2023 Asthma ([facility]) 07/10/2023 Body mass index (BMI) 50.0-59.9, adult ([facility]) Cellulitis of left lower extremity Cervical cancer ([facility]) 09/17/2023 Chronic pain of both knees 09/17/2023 COPD (chronic obstructive pulmonary disease) ([facility]) 07/10/2023 COPD exacerbation ([facility]) 09/17/2023 Decreased functional mobility 09/17/2023 Diabetic neuropathy ([facility]) 07/10/2023 Dietary counseling and surveillance Edema 07/10/2023 Elevated sed rate Elevated WBC count GERD (gastroesophageal reflux disease) 09/17/2023 Hyperlipidemia ([facility]) 09/17/2023 Hypertension ([facility]) 07/10/2023 Insomnia 09/17/2023 correction (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 ([facility]) Lower extremity edema 09/17/2023 Morbid (severe) obesity due to excess calories ([facility]) Obstructive sleep apnea 07/10/2023 PAD (peripheral artery disease) ([facility]) 09/17/2023 Pancreatitis 09/17/2023 Pneumonia 09/17/2023 Proteinuria, unspecified Pulmonary hypertension ([facility]) 09/17/2023 Radiculopathy, lumbar region 09/17/2023 Tobacco user 09/17/2023 Type 2 diabetes mellitus with complication, with long-term current use of insulin ([facility]) 07/10/2023 Unilateral primary osteoarthritis, right hip 09/17/2023 [...] hyperglycemia, with long-term current use of insulin ([facility]) - POCT glucose manually resulted - POCT glycosylated hemoglobin (Hb A1C) docked device We will continue with Lantus 58, lispro 02/16/12 according to meal size, Mounjaro 15 mg once weekly, Farxiga 5 mg once a day Encounter for dietary consultation Vitamin D deficiency Primary hypertension ([facility]) To follow with her PCP Insulin long-term use ([facility]) Hyperlipemia, mixed ([facility]) Continue with Zocor 10 mg once daily Microalbuminuria Class 3 severe obesity due to excess calories with serious comorbidity and body mass index (BMI) of 50.0 to 59.9 in adult ([facility]) Diet and exercise reviewed with the patient Follow up in about 3 months (around 08/27/2024). documented in this encounter [facility] 04-14-2024 History of Present illness Narrative Associated Problem(s): Hyperpigmentation of skin Will try cerevue ointment to see if helps Associated Problem(s): Tobacco user Urged to quit Associated Problem(s): Type 2 diabetes mellitus with complication, with long-term current use of insulin ([facility]) Check blood sugars daily, follow [...] with dr Yañez Associated Problem(s): Diabetic neuropathy ([facility]) Continue with tristan EAST reviewed [...] being taken. She does not see a wheat inspector.Eye exam is not current. Hypertension This is [...] or chew. ergocalciferol (Vitamin D2) 1.25 MG (05112 UT) capsule TAKE 1 CAPSULE BY MOUTH ONE TIME PER WEEK furosemide (LASIX) 20 mg, Oral, Daily PRN, Take in the afternoon as needed furosemide (LASIX) 40 mg, Oral, Daily Glucose Blood (ACCU-CHEK JAQUI PLUS ) 4 times daily HumaLOG KWIKPEN 100 UNIT/ML injection Subcutaneous hydrALAZINE (APRESOLINE) 25 mg, Oral, 2 times daily HYDROcodone-acetaminophen (Caraway) 5-325 MG tablet 1 tablet, 3 times [...] CT Albuminuria 09/17/2023 Angiomyolipoma Anxiety and depression ([facility]) 07/10/2023 Asthma ([facility]) 07/10/2023 Cellulitis of left lower extremity Cervical cancer ([facility]) 09/17/2023 Chronic pain of both knees 09/17/2023 COPD (chronic obstructive pulmonary disease) ([facility]) 07/10/2023 COPD exacerbation ([facility]) 09/17/2023 Decreased functional mobility 09/17/2023 Diabetic neuropathy ([facility]) 07/10/2023 Edema 07/10/2023 Elevated sed rate Elevated WBC count GERD (gastroesophageal reflux disease) 09/17/2023 Hyperlipidemia ([facility]) 09/17/2023 Hypertension ([facility]) 07/10/2023 Insomnia 09/17/2023 Lower extremity edema 09/17/2023 Obstructive sleep apnea 07/10/2023 PAD (peripheral artery disease) ([facility]) 09/17/2023 Pancreatitis 09/17/2023 Pneumonia 09/17/2023 Pulmonary hypertension ([facility]) 09/17/2023 Radiculopathy, lumbar region 09/17/2023 Tobacco user 09/17/2023 Type 2 diabetes mellitus with complication, with long-term current use of insulin ([facility]) 07/10/2023 Unilateral primary osteoarthritis, right hip 09/17/2023 [...] List Items Addressed This Visit Diabetic neuropathy ([facility]) Continue with lyrica OARRS reviewed Fu in 3 months Relevant Medications pregabalin (Lyrica) 300 MG capsule COPD (chronic obstructive pulmonary disease) ([facility]) - Primary Stable at this time, no changes in meds Encouraged smoking cessation Cont with dr Yañez Hypertension ([facility]) Stable on current meds Refill meds Relevant Medications hydrALAZINE (Apresoline) 25 MG tablet lisinopril 20 MG tablet Type 2 diabetes mellitus with complication, with long-term current use of insulin ([facility]) Check blood sugars daily, follow [...] 81 MG chewable tablet Anxiety and depression ([facility]) Relevant Medications DULoxetine (Cymbalta) [address] capsule Bilateral lower extremity edema Stable on current meds Insomnia Relevant Medications amitriptyline (Elavil) 25 MG tablet Tobacco user Urged to quit Non-seasonal allergic rhinitis Relevant Medications cetirizine (ZyrTEC) 10 MG tablet Hyperpigmentation of skin Will try cerevue ointment to see if helps Other Visit Diagnoses Type 2 diabetes mellitus with unspecified complications ([facility]) Relevant Medications dapagliflozin (Farxiga) 10 MG Gastro-esophageal reflux disease without esophagitis Relevant Medications omeprazole (PriLOSEC) [address] capsule Edema, unspecified Relevant Medications potassium chloride ER (Micro-K) 10 MEQ ER capsule Edema Relevant Medications potassium chloride ER (Micro-K) 10 MEQ ER capsule Chronic obstructive pulmonary disease, unspecified ([facility]) Relevant Medications Roflumilast 500 MCG tablet documented in this encounter [facility] 11-14-[address] Cardiology - [facility] Subjective Mitzi Macias is a 53 y.o. year old female being seen as new patient to establish care. Ref from Mckayla Blas CNP for pulmonary hypertension. She had echo in Aug 2023 while inpatient at [facility] for pneumonia and COPD exacerbation. Denies chest [...] was admitted in early 2023 to the [facility] with hypoxemia and treated as COPD [...] wheelchair Skin: Gene (more content not included)... [facility] 11-15-2022 Hospital Discharge instructions Patient Education [...] include: ?8 oz (237 mL) of milk, fpmpuvd-pcwpmdfvwuic-pxeej milk, and calcium-fortifiedfruit juice. Calcium-fortified means that [...] ?Spinach (cooked), rhubarb, beets, sweet potatoes, and Greenlandic chard. ?Peanuts. ?Potato chips, spanish fries, and baked potatoes with skin on. ?Nuts and nut products. ?Chocolate. If you regularly take a diuretic medicine, make sure to eat at least 1 or 2 servings of fruits or vegetables that are high in potassium each day. These include: ?Avocado. ?Banana. ?Mccormick, prune, carrot, or tomato juice. ?Baked potato. [...] magnesium, fish oil, or vitamin B6. Take kpye-ult-znuqavt and prescription medicines only as told by [...] Casseroles. Pizza. Lasagna. Frozen meals. Potato chips. Rwandan fries. The items listed above may not [...] provider. Document Revised: 03/06/2022 Document Reviewed: 03/06/2022 [employer] Patient Education 2022 [employer]. Follow Up Care 02/06/2022 11:44:09 With:SILVIA HOWELL, SARAH Webb, URL Address: [address] [place] [address] When: Unknown [facility] 08-24-2022 Note CONSULTATION CONSULTATION DATE: 08/24/2022 [...] We maintain her on pain medication with Caraway 5/325 t.i.d., diclofenac 75 mg b.i.d. Her [...] her at this point. A refill for Caraway 5/325 t.i.d. and diclofenac 75 mg b.i.d. will be sent to the pharmacy. Vitamin compliance and nutrition were discussed and enforced. I did highly encourage her to use exercise bands to increase the strength in her lower extremities. We will see her in three months' time, unless otherwise indicated, and patient agrees. [facility] 05-11-2022 Note CONSULTATION CONSULTATION DATE: 05/11/2022 [...] 150. Medications include Lyrica 300 mg b.i.d., Caraway 5/325 t.i.d., diclofenac 75 mg b.i.d. and [...] her medications today. We will maintain Lyrica, Caraway and diclofenac at the set dose and frequency. We will follow-up in the clinic in three months' time. The patient is in agreement to this. Vitamin importance and nutrition were discussed. [facility] 04-20-2022 Note CONSULTATION CONSULTATION DATE: 04/20/2022 [...] medications include Tylenol, Lyrica 300 mg b.i.d., Caraway 5/325 t.i.d., amitriptyline, diclofenac and duloxetine. Patient's [...] be followed up in the clinic. [facility] 03-08-2022 Evaluation note Encounter Date Diagnosis [...] to the DANIEL. Thrombocytopenia is unclear etiology. [facility] Other 08-15-2022 Evaluation note* Encounter Date Diagnosis [...] follow with Dr. Souza and Dr. Arauz. [facility] Other 08-01-2022 Hospital Discharge instructions Patient Education [...] fried and sweet foods. General instructions Take iims-jzj-vfygfzn and prescription medicines only as told by [...] 04/21/2010 Document Revised: 10/16/2019 Document Reviewed: 07/11/2018 [employer] Patient Education 2020 [employer]. Follow Up Care 01/05/2022 12:02:03 With:REGLA PHIPPS, Elbert Joya, URL Address: [facility] [address], [place] [address]- [phone] When:Within 6 Month(s) Comments:w/ repeat CT A/P [facility] 07-14-2022 NoteCONSULTATION [...] pattern and the patient tolerated it well. [facility] Signed and Approved by: GIL VALENZUELA . 01/27/2022 14:15:00[facility]07-14-2022 NoteCONSULTATION CONSULTATION DATE: 01/19/2022 This is [...] today. Medications include Lyrica 300 mg b.i.d., Caraway 5/325 t.i.d., diclofenac 75 mg b.i.d. and [...] in three months' time unless otherwise indicated. [facility] Signed and Approved by: GIL VALENZUELA . 01/27/2022 14:[facility] Future Appointments Appointment Date:08/14/2022 09:15:00 AM Scheduled Provider:Elbert ARAUZ MD Location:[facility] Appointment Type:URO Office Visit [facility] evaluation + Plan note Future Appointments Appointment Date:04/22/2024 10:00:00 AM Scheduled Provider:SARAH VEGA PA-C Location:[facility] Appointment Type:URO Office Visit [facility] evaluation note* Diagnosis Type 2 diabetes mellitus with unspecified complications ([facility]) Edema, unspecified Edema [facility] Diagnosis Vaginal yeast infection- Primary Candidiasis of vulva and vagina documented in this [facility]* Diagnosis Primary hypertension ([facility]/HCC)- Primary Unspecified essential hypertension Insomnia Insomnia, unspecified Type 2 diabetes mellitus with complication, with long-term current use of insulin ([facility]) Non-seasonal allergic rhinitis, unspecified trigger Type 2 diabetes mellitus with unspecified complications ([facility]/HCC) Anxiety and depression ([facility]) Gastro-esophageal reflux disease without esophagitis Edema, unspecified Edema Diabetic polyneuropathy associated with type 2 diabetes mellitus ([facility]) Chronic obstructive pulmonary disease, unspecified (CMS/HCC) Pulmonary [...] complication, with long-term current use of insulin (CMS/[facility]) Anxiety and depression (CMS/HCC) Bilateral lower extremity [...] user Tobacco use disorder Cardiomegaly Primary hypertension ([facility]/HCC)- Primary Unspecified essential hypertension Gastroesophageal reflux disease, [...] to 59.9 in adult, unspecified obesity type ([facility]) Encounter for subsequent annual wellness visit (AWV) in Medicare patient- Primary Type 2 diabetes mellitus with unspecified complications (CMS/HCC) Pulmonary emphysema, unspecified emphysema type (CMS/HCC) Moderate persistent asthma without complication (CMS/HCC) Primary hypertension (CMS/[facility]) Unspecified essential hypertension Type 2 diabetes mellitus with complication, with long-term current use of insulin (CMS/[facility]) Class 3 severe obesity with serious comorbidity [...] complication, with long-term current use of insulin ([facility]) Non-seasonal allergic rhinitis, unspecified trigger Type 2 diabetes mellitus with unspecified complications ([facility]) Anxiety and depression ([facility]) Gastro-esophageal reflux disease without esophagitis Edema, unspecified Edema Diabetic polyneuropathy associated with type 2 diabetes mellitus ([facility]) Chronic obstructive pulmonary disease, unspecified ([facility]) Pulmonary emphysema, unspecified emphysema type ([facility]) Bilateral lower extremity edema Tobacco user Tobacco use disorder Hyperpigmentation of skin Other dyschromia Type 2 diabetes mellitus with hyperglycemia, with long-term current use of insulin ([facility])- Primary Encounter for dietary consultation Vitamin D deficiency Primary hypertension ([facility]) Unspecified essential hypertension Insulin long-term use ([facility]) Encounter for long-term (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 Hyperlipemia, mixed ([facility]) Mixed hyperlipidemia Microalbuminuria Proteinuria Class 3 severe obesity due to excess calories with serious comorbidity and body mass index (BMI) of 50.0 to 59.9 in adult ([facility]) documented in this encounter [facility]* Diagnosis BMI 50.0-59.9, adult ([facility])- Primary Morbid obesity ([facility]) Morbid obesity Smoking Tobacco use disorder [facility] Diagnosis Hyperlipidemia, unspecified ([facility]) Bilateral lower extremity edema documented [facility]* Diagnosis Vitamin D deficiency, unspecified documented [facility]* Diagnosis Obstructive sleep apnea- Primary Obstructive sleep apnea (adult) (pediatric) Pulmonary emphysema, unspecified emphysema type ([facility]) Primary hypertension ([facility]) Unspecified essential hypertension Type 2 diabetes mellitus with complication, with long-term current use of insulin ([facility]) Anxiety and depression ([facility]) Bilateral lower extremity edema Pulmonary emphysema, unspecified emphysema type ([facility])- Primary Primary hypertension ([facility]) Unspecified essential hypertension Class 3 severe obesity with serious comorbidity and body mass index (BMI) of 50.0 to 59.9 in adult, unspecified obesity type ([facility]) Obstructive sleep apnea Obstructive sleep apnea (adult) (pediatric) Pulmonary hypertension ([facility]) Other chronic pulmonary heart diseases Tobacco user Tobacco use disorder Cardiomegaly Primary hypertension ([facility])- Primary Unspecified essential hypertension Gastroesophageal reflux disease, [...] polyneuropathy associated with type 2 diabetes mellitus (CMS/[facility]) Gout, unspecified cause, unspecified chronicity, unspecified site Non-seasonal allergic rhinitis, unspecified trigger Bilateral lower extremity edema COPD exacerbation (CMS/HCC) Obstructive chronic bronchitis with exacerbation Pulmonary emphysema, unspecified emphysema type (CMS/HCC) Venous insufficiency Unspecified venous (peripheral) insufficiency Candidiasis of breast COPD exacerbation (CMS/[facility])- Primary Obstructive chronic bronchitis with exacerbation Pulmonary hypertension (CMS/HCC) Other chronic pulmonary heart diseases Class 3 severe obesity with serious comorbidity and body mass index (BMI) of 50.0 to 59.9 in adult, unspecified obesity type ([facility]) Encounter for subsequent annual wellness visit (AWV) in Medicare patient- Primary Type 2 diabetes mellitus with unspecified complications (CMS/[facility]) Pulmonary emphysema, unspecified emphysema type (CMS/[facility]) Moderate persistent asthma without complication (CMS/[facility]) Primary hypertension (CMS/[facility]) Unspecified essential hypertension Type 2 diabetes mellitus with complication, with long-term current use of insulin (CMS/[facility]) Class 3 severe obesity with serious comorbidity and body mass index (BMI) of 50.0 to 59.9 in adult, unspecified obesity type (CMS/[facility]) Tobacco user Tobacco use disorder Other headache syndrome Malignant neoplasm of cervix uteri, unspecified (CMS/HCC) Other specified disorders of adrenal gland (CMS/HCC) Major depressive disorder, single episode, mild (HCC) (CMS/HCC) Major depressive disorder, single episode, mild 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 exposed (CMS/[facility]) Chronic respiratory failure, unspecified whether with hypoxia or hypercapnia (CMS/HCC) Disorder of adrenal gland, unspecified (CMS/HCC) Non-pressure chronic ulcer of other part of right lower leg limited to breakdown of skin (CMS/HCC) Non-recurrent acute suppurative otitis media of left ear without spontaneous rupture of tympanic membrane Primary hypertension ([facility])- Primary Unspecified essential hypertension Insomnia Insomnia, unspecified Type 2 diabetes mellitus with complication, with long-term current use of insulin ([facility]) Non-seasonal allergic rhinitis, unspecified trigger Type 2 diabetes mellitus with unspecified complications ([facility]) Anxiety and depression ([facility]) Gastro-esophageal reflux disease without esophagitis Edema, unspecified Edema Diabetic polyneuropathy associated with type 2 diabetes mellitus ([facility]) Chronic obstructive pulmonary disease, unspecified ([facility]) Pulmonary emphysema, unspecified emphysema type ([facility]) Bilateral lower extremity edema Tobacco user Tobacco use disorder Hyperpigmentation of skin Other dyschromia Bilateral lower extremity edema documented in this encounter [facility]Evaluation note* Diagnosis Obstructive sleep apnea- Primary Obstructive sleep apnea (adult) (pediatric) Pulmonary emphysema, unspecified emphysema type ([facility]) Primary hypertension ([facility]) Unspecified essential hypertension Type 2 diabetes mellitus with complication, with long-term current use of insulin ([facility]) Anxiety and depression ([facility]) Bilateral lower extremity edema Pulmonary emphysema, unspecified emphysema type ([facility])- Primary Primary hypertension ([facility]) Unspecified essential hypertension Class 3 severe obesity with serious comorbidity and body mass index (BMI) of 50.0 to 59.9 in adult, unspecified obesity type ([facility]) Obstructive sleep apnea Obstructive sleep apnea (adult) (pediatric) Pulmonary hypertension ([facility]) Other chronic pulmonary heart diseases Tobacco user Tobacco use disorder Cardiomegaly Primary hypertension ([facility])- Primary Unspecified essential hypertension Gastroesophageal reflux disease, unspecified whether esophagitis present Type 2 diabetes mellitus with complication, with long-term current use of insulin ([facility]) Mixed hyperlipidemia ([facility]) Mixed hyperlipidemia Tobacco user Tobacco use disorder Encounter for screening mammogram for malignant neoplasm of breast Chronic obstructive pulmonary disease, unspecified ([facility]) Other specified chronic obstructive pulmonary disease ([facility]) Anxiety and depression ([facility]) Edema, unspecified Edema Hyperlipidemia, unspecified ([facility]) Diabetic polyneuropathy associated with type 2 diabetes mellitus ([facility]) Gout, unspecified cause, unspecified chronicity, unspecified site Non-seasonal allergic rhinitis, unspecified trigger Bilateral lower extremity edema COPD exacerbation ([facility]) Obstructive chronic bronchitis with exacerbation Pulmonary emphysema, unspecified emphysema type ([facility]/HCC) Venous insufficiency Unspecified venous (peripheral) insufficiency Candidiasis [...] mellitus (CMS/HCC) Pulmonary emphysema, unspecified emphysema type ([facility]) Critical limb ischemia of right lower extremity ([facility]) PAD (peripheral artery disease) ([facility]) Unspecified peripheral vascular disease Gastroesophageal reflux disease, unspecified whether esophagitis present Bilateral lower extremity edema Venous ulcer of right leg ([facility]) Type 2 diabetes mellitus with complication, with long-term current use of insulin ([facility]) Tobacco user Tobacco use disorder Encounter for smoking cessation counseling Kidney stone Calculus of kidney Adrenal mass 1 cm to 4 cm in diameter ([facility]) Radiculopathy, lumbar region Thoracic or lumbosacral neuritis or radiculitis, unspecified Non-seasonal allergic rhinitis, unspecified trigger Type 2 diabetes mellitus with unspecified complications ([facility]) documented in this encounter [facility] [...] History sepsis 2011 Hospitalization History SEE ABOVE [facility] Other Hospital course Narrative No data available for this section [facility] InstructionsNot on filedocumented in this encounter [employer] SystemInstructionsNot on filedocumented in this encounter [employer] note No data available for this section [facility] reason for referral (narrative) , Referral to Dr. 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 Operator Summary Purpose Family History No Family History Records FoundNo Family History Records FoundNo Family History Records FoundNo Family History Records Found No data available for this section No Family History Records FoundNo Family History Records Found Additional Source Comments INFORMATION SOURCE (unrecogn ized section and content) DATE CREATED AUTHOR 10/30/2019 [facility] DATE CREATED AUTHOR AUTHOR'S ORGANIZ ATION 09/15/2020 [facility] DATE CREATED AUTHOR AUTHOR'S ORGANIZ ATION 12/19/2022 [facility] DATE CREATED AUTHOR AUTHOR'S ORGANIZ ATION 06/03/2024 [facility] DATE CREATED AUTHOR AUTHOR'S ORGANIZ ATION 07/20/2024 [facility] DATE CREATED AUTHOR AUTHOR'S ORGANIZ ATION 08/10/2024 [facility] Care Team (unrecognized sect ion and content) Carburetor Specialist Relationship Specialty Start Date End Date Ty Amin MD PCP - General Family Medicine 01/05/23 Carburetor Specialist Relationship Specialty Start Date End Date Ty Amin MD PCP - General Family Medicine 01/05/23 Carburetor Specialist Relationship Specialty Start Date End Date Ty Amin MD [address] [place] [phone] PCP - General Family Medicine 09/20/23 Mckayla Blas NP [address] [place] [address] PCP - [facility] 09/07/23 09/05/90 Mckayla Blas NP [address] [place] [address] Nurse Practitioner Family Medicine 09/20/23 Carburetor Specialist Relationship Specialty Start Date End Date Ty Amin MD [address] [place] [address] PCP - General Family Medicine 09/20/23 Mckayla Blas NP [address] [place] [address] PCP - [facility] 09/07/23 09/05/90 Mckayla Blas NP [address] [place] [phone] Nurse Practitioner Family Medicine 09/20/23 Carburetor Specialist Relationship Specialty Start Date End Date Ty Amin MD [address] [place] [phone] PCP - General Family Medicine 09/20/23 Mckayla Blas NP [address] [place] [address] [facility] - [facility] 09/07/23 09/05/90 Mckayla Blas NP [address] [place] [address] Nurse Practitioner Family Medicine 09/20/23 Carburetor Specialist Relationship Specialty Start Date End Date Ty Amin MD [address] [place] [phone] PCP - General Family Medicine 09/20/23 Mckayla Blas NP [address] [place] [phone] PCP - [facility] 09/07/23 09/05/90 Mckayla Blas NP [address] [place] [address] Nurse Practitioner Family Medicine 09/20/23 Carburetor Specialist Relationship Specialty Start Date End Date Ty Amin MD [address] [place] [phone] PCP - General Family Medicine 09/20/23 Mckayla Blas NP [address] [place] [address] PCP - [facility] 09/07/23 09/05/90 Mckayla Blas NP [address] [place] [address] Nurse Practitioner Family Medicine 09/20/23 Carburetor Specialist Relationship Specialty Start Date End Date Mckayla Blas, ORTHOPEDICS PEDIATRIC PHYSICIAN-PREPARED FOODS SUPERVISOR [address] [place] [address] PCP - General Nurse Practitioner 09/25/18 Carburetor Specialist Relationship Specialty Start Date End Date Mckayla Blas, ORTHOPEDICS PEDIATRIC PHYSICIAN-PREPARED FOODS SUPERVISOR [address] [place] [address] PCP - General Nurse Practitioner 09/25/18 Carburetor Specialist Relationship Specialty Start Date End Date Ty Amin MD [address] [place] [phone] PCP - General Family Medicine 09/20/23 Mckayla Blas NP [address] [place] [address] PCP - [facility] 09/07/23 09/05/90 Mckayla Blas NP [address] [place] [address] Nurse Practitioner Family Medicine 09/20/23 Carburetor Specialist Relationship Specialty Start Date End Date Ty Amin MD [address] [place] [phone] PCP - General Family Medicine 09/20/23 Mckayla Blas NP [address] [place] [address] PCP - [facility] 09/07/23 09/05/90 Mckayla Blas NP [address] [place] [address] Nurse Practitioner Family Medicine 09/20/23 Carburetor Specialist Relationship Specialty Start Date End Date Ty Amin MD [address] [place] [phone] PCP - General Family Medicine 09/20/23 Mckayla Blas NP [address] [place] [address] PCP - [facility] 09/07/23 09/05/90 Mckayla Blas NP [address] [place] [phone] Nurse Practitioner Family Medicine 09/20/23 Carburetor Specialist Relationship Specialty Start Date End Date Ty Amni MD [address] [place] [phone] PCP - General Family Medicine 09/20/23 Mckayla Blas NP [address] [place] [phone] PCP - [facility] 09/07/23 09/05/90 Mckayla Blas NP [address] [place] [address] Nurse Practitioner Family Medicine 09/20/23 Carburetor Specialist Relationship Specialty Start Date End Date Ty Amin MD [address] [place] [phone] PCP - General Family Medicine 09/20/23 Mckayla Blas NP [address] [place] [phone] PCP - [facility] 09/07/23 09/05/90 Mckayla Blas NP [address] [place] [phone] Nurse Practitioner Family Medicine 09/20/23 REASON FOR VISIT (unrecogniz ed section and content) Reason Comments Med Refill Reason Comments Diabetes Follow-up Reason Comments NON-PAR WITH [facility] DUAL COMPLE TE WITHOUT OON BENEFITS- NEED [...] BE BASED ON THE PRIMARY CLINICAL RECORDS. [facility] [employer] [facility]. provides no warranty or guarantee of the accuracy or completeness of information in this document.
== END 2024-08-13 11:20 | disposition home or self-care (01) ==
LOC: WC 11:20
PROVIDERS: PCP Nurse Practitioner; Visit Provider Physician Assistant
DX: M48.062 Spinal stenosis, lumbar region with neurogenic claudication (principal); M51.369 Other intervertebral disc degeneration, lumbar region without mention of lumbar back pain or lower extremity pain; M54.16 Radiculopathy, lumbar region; G89.4 Chronic pain syndrome; Z79.891 Long term (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 opiate analgesic; M16.11 Unilateral primary osteoarthritis, right hip; M25.551 Pain in right hip; I87.311 Chronic venous hypertension (idiopathic) with ulcer of right lower extremity; L97.812 Non-pressure chronic ulcer of other part of right lower leg with fat layer exposed
CPT/HCPCS: 29580; G0463

== ENCOUNTER 2024-08-18 14:37 | Outpatient (OUT) | payer MEDICARE, OTHER, SELFPAY ==
--- OUTSIDE RECORDS SUMMARY | 2024-08-18 14:45 | XMS_ITS | CCD ---
Author Organization [facility] Care Team Providers Care Weight Checker Name Role Phone James Benavidez Primary Care Provider JAMES BENAVIDEZ Primary Care Unavailable SHENDGE, VITHAL Admitting Unavailable SHENDGE, VITHAL Attending Unavailable AICHHOLZ, MCKAYLA Primary Care Unavailable AICHHOLZ, MCKAYLA Referring Unavailable AICHHOLZ, MCKAYLA J Primary Care Physician Tico, Stephanie Unavailable OLE RAMIREZ Attending Unavailable OLE RAMIREZ Consulting Unavailable AICHHOLZ, DIRECTOR OF FINANCE MCKAYLA Primary Care Unavailable OLE RAMIREZ Admitting Unavailable ANTONY SHRESTHA Consulting Unavailable ALONDRA ., UMBERTO Admitting Unavailable ALONDRA ., UMBERTO Attending Unavailable AICHHOLZ, DIRECTOR OF FINANCE MCKAYLA Primary Care Unavailable AFSANEH Loera, DR BOLANOS Consulting Unavailable MARYANNE POWER Consulting Unavailable GLENN KERR Consulting Unavailable YOMAIRA KERR Consulting Unavailable HATTIE GOFF Consulting Unavailable ALONDRA ., UMBERTO Consulting Unavailable TICO, STEPHANIE Attending Unavailable TICO, STEPHANIE Consulting Unavailable AICHHOLZ, DIRECTOR OF FINANCE MCKAYLA Primary Care Unavailable TICO, STEPHANIE Admitting Unavailable REGLA ., DR DUMONT Admitting Unavailable AICHHOLZ, DIRECTOR OF FINANCE MCKAYLA Primary Care Unavailable REGLA ., DR DUMONT Attending Unavailable ARAUZ ., DR DUMONT Consulting Unavailable COLLIN HUERTAS Consulting Unavailable CECILIA KAUFMAN Admitting Unavailable CECILIA KAUFMAN Attending Unavailable AICHHOLZ, DIRECTOR OF FINANCE MCKAYLA Primary Care Unavailable RAFAEL GONGORA Attending Unavailable RAFAEL GONGORA Admitting Unavailable AICHHOLZ, DIRECTOR OF FINANCE MCKAYLA Primary Care Unavailable AICHHOLZ, DIRECTOR OF FINANCE MCKAYLA Admitting Unavailable AICHHOLZ, DIRECTOR OF FINANCE MCKAYLA Primary Care Unavailable AICHHOLZ, DIRECTOR OF FINANCE MCKAYLA Attending Unavailable AICHHOLZ, DIRECTOR OF FINANCE MCKAYLA Consulting Unavailable LAKSHMIPATHY ., NARENDRANATH Attending Anette vailable LAKSHMIPATHY ., NARENDRANATH Consulting Anette vailable LAKSHMIPATHY ., NARENDRANATH Admitting Antete vailable AICHHOLZ, DIRECTOR OF FINANCE MCKAYLA Primary Care Unavailable VALENZUELA ., GIL Consulting Unavailable MORTENSEN ., DR CHAPARRO Aguillon Attending Unavailable MORTENSEN ., DR CHAPARRO Aguillon Admitting Unavailable AICHHOLZ, DIRECTOR OF FINANCE MCKAYLA Primary Care Unavailable VALENZUELA ., GIL Consulting Unavailable MORTENSEN ., DR CHAPARRO Aguillon Admitting Unavailable AICHHOLZ, DIRECTOR OF FINANCE MCKAYLA Primary Care Unavailable MORTENSEN ., DR CHAPARRO gAuillon Attending Unavailable HALKER ., SUBHASH Consulting Unavailable LAKSHMIPATHY ., NARENDRANATH Admitting Anette vailable LAKSHMIPATHY ., NARENDRANATH Attending Anette vailable AICHHOLZ, DIRECTOR OF FINANCE MCKAYLA Primary Care Unavailable MORTENSEN ., DR CHAPARRO Aguillon Attending Unavailable MORTENSEN ., DR CHAPARRO Aguillon Admitting Unavailable VALENZUELA ., GIL Consulting Unavailable AICHHOLZ, DIRECTOR OF FINANCE MCKAYLA Primary Care Unavailable VALENZUELA ., GIL Consulting Unavailable MORTENSEN ., DR CHAPARRO Aguillon Attending Unavailable MORTENSEN ., DR CHAPARRO Aguillon Admitting Unavailable AICHHOLZ, DIRECTOR OF FINANCE MCKAYLA Primary Care Unavailable HATTIE BRODERICK Attending Unavailable HATTIE BRODERICK Admitting Unavailable AICHHOLZ, DIRECTOR OF FINANCE MCKAYLA Primary Care Unavailable AICHHOLZ, DIRECTOR OF FINANCE MCKAYLA Admitting Unavailable AICHHOLZ, DIRECTOR OF FINANCE MCKAYLA Consulting Unavailable AICHHOLZ, DIRECTOR OF FINANCE MCKAYLA Primary Care Unavailable AICHHOLZ, DIRECTOR OF FINANCE MCKAYLA Attending Unavailable AICHHOLZ, DIRECTOR OF FINANCE MCKAYLA Primary Care Unavailable MISC, DR LESLIE Admitting Unavailable MISC, DR LESLIE Attending Unavailable MISC, DR LESLIE Consulting Unavailable DIAB ., MARIANO Admitting Unavailable DIAB ., MARIANO Attending Unavailable DIAB ., MARIANO Consulting Unavailable AICHHOLZ, DIRECTOR OF FINANCE MCKAYLA Primary Care Unavailable RASTEGAR, RICCO Consulting Unavailable AICHHOLZ, DIRECTOR OF FINANCE MCKAYLA Admitting Unavailable AICHHOLZ, DIRECTOR OF FINANCE MCKAYLA Primary Care Unavailable AICHHOLZ, DIRECTOR OF FINANCE MCKAYLA Attending Unavailable AICHHOLZ, DIRECTOR OF FINANCE MCKAYLA Consulting Unavailable DR PATRICIA VELOZ Consulting Unavailable TAMLYN ., CECILIA Attending Unavailable TAMLYN ., CECILIA Admitting Unavailable DR PATRICIA VELOZ Consulting Unavailable AICHHOLZ, DIRECTOR OF FINANCE MCKAYLA Primary Care Unavailable TAMLYN ., CECILIA Consulting Unavailable MORTENSEN ., DR CHAPARRO Aguillon Attending Unavailable FESTUS ., DR CHAPARRO Aguillon Consulting Unavailable FESTUS ., DR CHAPARRO Aguillon Admitting Unavailable AICHHOLZ, DIRECTOR OF FINANCE MCKAYLA Primary Care Unavailable HATTIE BRODERICK Attending Unavailable HATTIE BRODERICK Consulting Unavailable HATTIE BRODERICK Admitting Unavailable AICHHOLZ, DIRECTOR OF FINANCE MCKAYLA Primary Care Unavailable HATTIE BAUTISTA Unavailable AICHHOLZ, DIRECTOR OF FINANCE MCKAYLA Admitting Unavailable AICHHOLZ, DIRECTOR OF FINANCE MCKAYLA Attending Unavailable AICHHOLZ, DIRECTOR OF FINANCE MCKAYLA Consulting Unavailable AICHHOLZ, DIRECTOR OF FINANCE MCKAYLA Primary Care Unavailable Brennan PHIPPS, Ty Primary Care Provider [phone] Brennan PHIPPS, Ty Primary Care Provider [phone] Aichholz GEOTHERMAL HEAT PUMP MACHINIST, Mckayla Unavailable Aichholz GEOTHERMAL HEAT PUMP MACHINIST, Mckayla Unavailable Elbert ARAUZ Attending Unavailable SARAH [...] Medication Allergies] Propensity to adverse reactions (disorder) [facility] Repository Medications Current Medications Medication Drug [...] Start Date: 02/06/22 Status: Ordered HYDROcodone-acet aminophen ([place]) 5-325 MG tablet 1 tablet 3 (three) times a day as needed for severe pain. Active HYDROcodone-acet aminophen ([place]) 5-325 mg per tablet 2 (two) times a day. 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 Unclassified (1 source) [facility] INJECT NONINSULN ANTIDIAB; Translations: [[employer] INJECT NONINSULN ANTIDIAB] Onset: 12-05-2022 Unclassified (3 [...] Range Facility Office Visiton 08-08-2024 Follow-up visit [id number] Mitzi Macias 1970 F Date Provider Department Center 08/08/2024 [id number] BRIDGES [facility] Family History Problem Relation Age of Onset Heart attack Paternal Grandmother Family Status - Relation Status Age at Paternal Grandmother Level of Service:50999 [place] OFFICE/OUTPATIENT ESTABLISHED MOD MDM 30 MIN Reason for Visit and Comments: Congestive Heart Failure [127] - Denies chest pain, SOB, and palpitations. Hypertension [993270] Hyperlipidemia [182] LVH [Other] Edema [[id number]] - Denies worsening edema. She sees wound care for RLE ulcer. She was seeing the vein specialists here in town but they are moving to [place] in a few weeks. Normal [facility] Glucose (Bld) [Mass/Vol]Orde red By: Mica Sauceda on 05-27-2024 Glucose Blood, POC 158 mg/dL [facility] Laboratory - Hematology and Cell countson 05-27-2024 HbA1c (Bld) [Mass fraction] 9.2 % [facility] No Panel InformationOrdered By: Mica Sauceda on 05-27-2024 [facility] CREATININEon 05-12-2024 Creatinine [Mass/Vol] 0.92 mg/dL 0.55 - 1.02 mg/dL [facility] GFR/1.73 sq M.predicted CKD-EPI (S/P/Bld) [Vol rate/Area] >60 >=60 mL/min/1.73m 2 [facility] EGFR-NON AF MALDIVIAN >60 >=60 mL/min/1.73m 2 [facility] Healthcare Office Visiton 11-14-2023 Follow-up visit [id number] Mitzi Macias 1970 F Date Provider Department Center 11/14/2023 BHARAT NICOLE MARIO [facility] Family History Problem Relation Age of Onset Heart attack Paternal Grandmother Family Status - Relation Status Age at Paternal Grandmother Level of Service:43369 [place] OFFICE/OUTPATIENT NEW LOW MDM 30 MINUTES Normal [facility] CBC AUTO DIFFon 12-06-2022 BASO # 0.0 103/ul Normal 0.0-0.1 [facility] Comment on above: Performed By: #### C BC #### [facility] [address] [address] [address] Ashlie Hills Basophils/100 WBC (Bld) 0.1 % Critically low 0.2-2.0 [facility] Comment on above: Performed By: #### C BC #### [facility] [address] [place] [address] Dr. Ashlie Hills EO # 0.0 103/ul Normal 0.0-0.7 [facility] Comment on above: Performed By: #### C BC #### [facility] [address] [place] [address] Dr. Ashlie Hills Eosinophils/100 WBC (Bld) 0.0 % Critically low 0.9-7.0 [facility] Comment on above: Performed By: #### C BC #### [facility] [address] [place] [address] Dr. Ashlie Hills Erythrocyte distribution width (RBC) [Ratio] 14.9 % Normal 11.0-15.0 [facility] Comment on above: Performed By: #### C BC #### [facility] [address] [place] [address] Dr. Ashlie Hills Hematocrit (Bld) [Volume fraction] 46.2 % Normal 36.0-48.0 [facility] Comment on above: Performed By: #### C BC #### [facility] [address] [place] [address] Dr. Ashlie Hills Hemoglobin (Bld) [Mass/Vol] 14.7 g/dL Normal 12.0-16.0 [facility] Comment on above: Performed By: #### C BC #### [facility] [address] [place] [address] Dr. Ashlie Hills IG # 0.06 10e3/ul Critically high 0.00-0.03 [facility] Comment on above: Performed By: #### C BC #### [facility] [address] [place] [address] Dr. Ashlie Hills IG % 0.4 % Normal 0.0-0.5 [facility] Comment on above: Performed By: #### C BC #### [facility] [address] [place] [address] Dr. Ashlie Hills LYMPH # 1.3 103/ul Normal 1.2-3.8 [facility] Comment on above: Performed By: #### C BC #### [facility] [address] [place] [address] Dr. Ashlie Hills Lymphocytes/100 WBC (Bld) 9.4 % Critically low 20.5-60.0 [facility] Comment on above: Performed By: #### C BC #### [facility] [address] [place] [address] Dr. Ashlie Hills MANUAL DIFF REQ NO Normal [facility] Comment on above: Performed By: #### C BC #### [facility] [address] [place] [address] Dr. Ashlie Hills MCH (RBC) [Entitic mass] 28.4 pg Normal 26.7-34.0 [facility] Comment on above: Performed By: #### C BC #### [facility] [address] [place] [address] Dr. Ashlie Hills MCHC (RBC) [Mass/Vol] 31.8 g/dL Normal 29.9-35.2 [facility] Comment on above: Performed By: #### C BC #### [facility] [address] [place] [address] Dr. Ashlie Hills MCV (RBC) [Entitic vol] 89.4 fL Normal 81.0-99.[address] [facility] Comment on above: Performed By: #### C BC #### [facility] [address] [place] [address] Dr. Ashlie Hills MONO # 0.5 103/ul Normal 0.3-0.8 [facility] Comment on above: Performed By: #### C BC #### [facility] [address] [place] [address] Dr. Ashlie Hills Monocytes/100 WBC (Bld) 3.4 % Normal 1.7-12.[address] [facility] Comment on above: Performed By: #### C BC #### [facility] [address] [place] [address] Dr. Ashlie Hills NEUT # 11.8 103/ul Critically high 1.4-6.5 [facility] Comment on above: Performed By: #### C BC #### [facility] [address] [place] [address] Dr. Ashlie Hills Neutrophils/100 WBC (Bld) 86.7 % Critically high 43.0-75.0 [facility] Comment on above: Performed By: #### C BC #### [facility] [address] [place] [address] Dr. Ashlie Hills Platelet mean volume (Bld) [Entitic vol] 12.6 fL Normal 9.5-13.5 [facility] Comment on above: Performed By: #### C BC #### [facility] [address] [place] [address] Dr. Ashlie Hills PLT 133 103/ul Critically low 150-450 [facility] Comment on above: Performed By: #### C BC #### [facility] [address] [place] [address] Dr. Ashlie Hills RBC 5.17 106/ul Normal 4.20-5.40 [facility] Comment on above: Performed By: #### C BC #### [facility] [address] [place] [address] Dr. Ashlie Hills WBC 13.6 103/ul Critically high 4.0-11.0 [facility] Comment on above: Performed By: #### C BC #### [facility] [address] [place] [address] Dr. Ashlie Hills MAGNESIUMon 12-06-2022 Magnesium [Mass/Vol] 2.2 mg/dL Normal 1.8-2.4 [facility] Comment on above: Performed By: #### I NFLUAB #### [facility] [address] [place] [address] Dr. Ashlie Hills POINT OF CARE GLUCOSEon 11-08 Glucose [Mass/Vol] 340 mg/dL Critically high 74-[address] [facility] Comment on above: Performed By: #### P OCGLUC #### [facility] [address] [place] [address] Dr. Ashlie Hills Glucose [Mass/Vol] 276 mg/dL Critically high 74-[address] [facility] Comment on above: Performed By: #### C BC #### [facility] [address] [place] [address] Dr. Ashlie Hills Glucose [Mass/Vol] 333 mg/dL Critically high 74-[address] [facility] Comment on above: Performed By: #### C BC #### [facility] [address] [place] [address] Dr. Ashlie Hills PROF CHEM 8 (BAS METB)on Anion gap [Moles/Vol] 10.9 mmol/L Normal [facility] Comment on above: Performed By: #### I NFLUAB #### [facility] [address] [place] [address] Dr. Ashlie Hills Calcium [Mass/Vol] 9.3 mg/dL Normal 8.5-10.1 [facility] Comment on above: Performed By: #### I NFLUAB #### [facility] [address] [place] [address] Dr. Ashlie Hills Chloride [Moles/Vol] 103 mmol/L Normal 98-107 [facility] Comment on above: Performed By: #### I NFLUAB #### [facility] [address] [place] [address] Dr. Ashlie Hills CO2 [Moles/Vol] 31.2 mmol/L Normal 21.0-32.0 [facility] Comment on above: Performed By: #### I NFLUAB #### [facility] [address] [place] [address] Dr. Ashlie Hills Creatinine [Mass/Vol] 0.96 mg/dL Normal 0.55-1.02 [facility] Comment on above: Performed By: #### I NFLUAB #### [facility] [address] [place] [address] Dr. Ashlie Hills EGFR-AF MALDIVIAN >60 Normal >=60 [facility] Comment on above: Performed By: #### I NFLUAB #### [facility] [address] [place], [place] [id number] Dr. Ashlie Hills EGFR-NON AF MALDIVIAN >60 Normal >=60 [facility] Comment on above: Performed By: #### I NFLUAB #### [facility] [address] [place] [address] Dr. Ashlie Hills Glucose [Mass/Vol] 288 mg/dL Critically high 74-[address] [facility] Comment on above: Performed By: #### I NFLUAB #### [facility] [address] [place] [address] Dr. Ashlie Hills Potassium [Moles/Vol] 5.1 mmol/L Normal 3.5-5.1 [facility] Comment on above: Performed By: #### I NFLUAB #### [facility] [address] [place] [address] Dr. Ashlie Hills Sodium [Moles/Vol] 140 mmol/L Normal 136-145 [facility] Comment on above: Performed By: #### I NFLUAB #### [facility] [address] [place] [address] Dr. Ashlie Hills Urea nitrogen [Mass/Vol] 30.0 mg/dL Critically high 7.0-18.0 [facility] Comment on above: Performed By: #### I NFLUAB #### [facility] [address] [place] [address] Dr. Ashlie Hills Urea nitrogen/Creatinine [Mass ratio] 31.2 mg/mg Normal [facility] Comment on above: Performed By: #### I NFLUAB #### [facility] [address] [place] [address] Dr. Ashlie Hills CBC AUTO DIFFon 12-05-2022 BASO # 0.0 103/ul Normal 0.0-0.1 [facility] Comment on above: Performed By: #### C BC #### [facility] [address] [place] [address] Dr. Ashlie Hills Basophils/100 WBC (Bld) 0.4 % Normal 0.2-2.[address] [facility] Comment on above: Performed By: #### C BC #### [facility] [address] [place] [address] Dr. Ashlie Hills EO # 0.0 103/ul Normal 0.0-0.7 [facility] Comment on above: Performed By: #### C BC #### [facility] [address] [place] [address] Dr. Ashlie Hills Eosinophils/100 WBC (Bld) 0.0 % Critically low 0.9-7.0 [facility] Comment on above: Performed By: #### C BC #### [facility] [address] [place] [address] Dr. Ashlie Hills Erythrocyte distribution width (RBC) [Ratio] 14.8 % Normal 11.0-15.0 [facility] Comment on above: Performed By: #### C BC #### [facility] [address] [place] [address] Dr. Ashlie Hills Hematocrit (Bld) [Volume fraction] 49.9 % Critically high 36.0-48.0 [facility] Comment on above: Performed By: #### C BC #### [facility] [address] [place] [address] Dr. Ashlie Hills Hemoglobin (Bld) [Mass/Vol] 15.7 g/dL Normal 12.0-16.0 [facility] Comment on above: Performed By: #### C BC #### [facility] [address] [place] [address] Dr. Ashlie Hills IG # 0.04 10e3/ul Critically high 0.00-0.03 [facility] Comment on above: Performed By: #### C BC #### [facility] [address] [place] [address] Dr. Ashlie Hills IG % 0.5 % Normal 0.0-0.5 [facility] Comment on above: Performed By: #### C BC #### [facility] [address] [place] [address] Dr. Ashlie Hills LYMPH # 1.1 103/ul Critically low 1.2-3.8 [facility] Comment on above: Performed By: #### C BC #### [facility] [address] [place] [address] Dr. Ashlie Hills Lymphocytes/100 WBC (Bld) 12.7 % Critically low 20.5-60.0 [facility] Comment on above: Performed By: #### C BC #### [facility] [address] [place] [address] Dr. Ashlie Hills MANUAL DIFF REQ NO Normal [facility] Comment on above: Performed By: #### C BC #### [facility] [address] [address] [address] Ashlie Hills MCH (RBC) [Entitic mass] 28.1 pg Normal 26.7-34.0 [facility] Comment on above: Performed By: #### C BC #### [facility] [address] [place] [address] Dr. Ashlie Hills MCHC (RBC) [Mass/Vol] 31.5 g/dL Normal 29.9-35.2 [facility] Comment on above: Performed By: #### C BC #### [facility] [address] [place] [address] Dr. Ashlie Hills MCV (RBC) [Entitic vol] 89.3 fL Normal 81.0-99.[address] [facility] Comment on above: Performed By: #### C BC #### [facility] [address] [place] [address] Dr. Ashlie Hills MONO # 0.1 103/ul Critically low 0.3-0.8 [facility] Comment on above: Performed By: #### C BC #### [facility] [address] [place] [address] Dr. Ashlie Hills Monocytes/100 WBC (Bld) 1.3 % Critically low 1.7-12.0 [facility] Comment on above: Performed By: #### C BC #### [facility] [address] [place] [address] Dr. Ashlie Hills NEUT # 7.2 103/ul Critically high 1.4-6.5 [facility] Comment on above: Performed By: #### C BC #### [facility] [address] [place] [address] Dr. Ashlie Hills Neutrophils/100 WBC (Bld) 85.1 % Critically high 43.0-75.0 [facility] Comment on above: Performed By: #### C BC #### [facility] [address] [address] [address] Ashlie Hills Platelet mean volume (Bld) [Entitic vol] 12.2 fL Normal 9.5-13.5 [facility] Comment on above: Performed By: #### C BC #### [facility] [address] [address] [address] Ashlie Hills PLT 116 103/ul Critically low 150-450 [facility] Comment on above: Performed By: #### C BC #### [facility] [address] [address] [address] Ashlie Hills RBC 5.59 106/ul Critically high 4.20-5.40 [facility] Comment on above: Performed By: #### C BC #### [facility] [address] [address] [address] Ashlie Hills WBC 8.5 103/ul Normal 4.0-11.0 [facility] Comment on above: Performed By: #### C BC #### [facility] [address] [address] [address] Ashlie Hills CTA CHEST WO W [...] GOFF Date: 2022-12-05 01:52 Normal [facility] MAGNESIUMon 12-05-2022 Magnesium [Mass/Vol] 2.1 mg/dL Normal 1.8-2.4 [facility] Comment on above: Performed By: #### P OCGLUC #### [facility] [address] [place] [address] Dr. Ashlie Hills POINT OF CARE GLUCOSEon 11-08 Glucose [Mass/Vol] 293 mg/dL Critically high -[address] [facility] Comment on above: Performed By: #### P OCGLUC #### [facility] [address] [place] [address] Dr. Ashlie Hills Glucose [Mass/Vol] 269 mg/dL Critically high -[address] [facility] Comment on above: Performed By: #### P OCGLUC #### [facility] [address] [place] [address] Dr. Ashlie Hills Glucose [Mass/Vol] 223 mg/dL Critically high -[address] [facility] Comment on above: Performed By: #### C VDAGS #### [facility] [address] [place] [address] Dr. Ashlie Hills PROF CHEM 8 (BAS METB)on Anion gap [Moles/Vol] 11.6 mmol/L Normal [facility] Comment on above: Performed By: #### P OCGLUC #### [facility] [address] [address] [address] Ashlie Hills Calcium [Mass/Vol] 9.2 mg/dL Normal 8.5-10.1 [facility] Comment on above: Performed By: #### P OCGLUC #### [facility] [address] [address] [address] Ashlie Hills Chloride [Moles/Vol] 102 mmol/L Normal 98-107 [facility] Comment on above: Performed By: #### P OCGLUC #### [facility] [address] [address] [address] Ashlie Hills CO2 [Moles/Vol] 28.7 mmol/L Normal 21.0-32.0 [facility] Comment on above: Performed By: #### P OCGLUC #### [facility] [address] [address] [address] Ashlie Hills Creatinine [Mass/Vol] 1.04 mg/dL Critically high 0.55-1.02 [facility] Comment on above: Performed By: #### P OCGLUC #### [facility] [address] [address] [address] Ashlie Hills EGFR-AF MALDIVIAN >60 Normal >=60 [facility] Comment on above: Performed By: #### P OCGLUC #### [facility] [address] [address] [address] Ashlie Hills EGFR-NON AF MALDIVIAN 56 mL/min/1.73m2 Critically low >=60 [facility] Comment on above: Performed By: #### P OCGLUC #### [facility] [address] [address] [address] Ashlie Hills Glucose [Mass/Vol] 231 mg/dL Critically high 74-[address] [facility] Comment on above: Performed By: #### P OCGLUC #### [facility] [address] [address] [address] Ashlie Hills Potassium [Moles/Vol] 4.3 mmol/L Normal 3.5-5.1 [facility] Comment on above: Performed By: #### P OCGLUC #### [facility] [address] [place] [address] Dr. Ashlie Hills Sodium [Moles/Vol] 138 mmol/L Normal 136-145 [facility] Comment on above: Performed By: #### P OCGLUC #### [facility] [address] [place] [address] Dr. Ashlie Hills Urea nitrogen [Mass/Vol] 17.0 mg/dL Normal 7.0-18.0 [facility] Comment on above: Performed By: #### P OCGLUC #### [facility] [address] [place] [address] Dr. Ashlie Hills Urea nitrogen/Creatinine [Mass ratio] 16.3 mg/mg Normal [facility] Comment on above: Performed By: #### P OCGLUC #### [facility] [address] [place] [address] Dr. Ashlie Hills RESPIRATORY PANEL PLUSon Adenovirus Not detected Normal NOT DETECTED [facility] Comment on above: Performed By: #### C VDAGS #### [facility] [address] [place] [address] Dr. Ashlie Hills B. Parapertusis Not detected Normal NOT DETECTED [facility] Comment on above: Performed By: #### C VDAGS #### [facility] [address] [place] [address] Dr. Ashlie Shaffer. Pertussis Not detected Normal NOT DETECTED [facility] Comment on above: Performed By: #### C VDAGS #### [facility] [address] [place] [address] Dr. Ashlie Hills Chlamydia Pneumoniae Not detected Normal NOT DETECTED [facility] Comment on above: Performed By: #### C VDAGS #### [facility] [address] [place] [address] Dr. Ashlie Hills Coronavirus 229E Not detected Normal NOT DETECTED [facility] Comment on above: Performed By: #### C VDAGS #### [facility] [address] [place] [address] Dr. Ashlie Hills Coronavirus HKU1 Not detected Normal NOT DETECTED [facility] Comment on above: Performed By: #### C VDAGS #### [facility] [address] [place] [address] Dr. Ashlie Hills Coronavirus NL63 Not detected Normal NOT DETECTED [facility] Comment on above: Performed By: #### C VDAGS #### [facility] [address] [address] [address] Ashlie Hills Coronavirus OC43 Not detected Normal NOT DETECTED [facility] Comment on above: Performed By: #### C VDAGS #### [facility] [address] [place] [address] Dr. Ashlie Hills Influenza A H1 Not detected Normal NOT DETECTED [facility] Comment on above: Performed By: #### C VDAGS #### [facility] [address] [place] [address] Dr. Ashlie Hills Influenza A H1 2009 Not detected Normal NOT DETECTED [facility] Comment on above: Performed By: #### C VDAGS #### [facility] [address] [place] [address] Dr. Ashlie Hills Influenza A H3 Not detected Normal NOT DETECTED [facility] Comment on above: Performed By: #### C VDAGS #### [facility] [address] [place] [address] Dr. Ashlie Hills Influenza B Not detected Normal NOT DETECTED [facility] Comment on above: Performed By: #### C VDAGS #### [facility] [address] [place] [address] Dr. Ashlie Hills Metapneumovirus Not detected Normal NOT DETECTED [facility] Comment on above: Performed By: #### C VDAGS #### [facility] [address] [place] [address] Dr. Ashlie Hills Mycoplas. Pneumoniae Not detected Normal NOT DETECTED [facility] Comment on above: Performed By: #### C VDAGS #### [facility] [address] [place] [address] Dr. Ashlie Hills Parainfluenza 1 Not detected Normal NOT DETECTED [facility] Comment on above: Performed By: #### C VDAGS #### [facility] [address] [place] [address] Dr. Ashlie Hills Parainfluenza 2 Not detected Normal NOT DETECTED [facility] Comment on above: Performed By: #### C VDAGS #### [facility] [address] [place] [address] Dr. Ashlie Hills Parainfluenza 3 Detected Abnormal NOT DETECTED [facility] Comment on above: Performed By: #### C VDAGS #### [facility] [address] [place] [address] Dr. Ashlie Hills Parainfluenza 4 Not detected Normal NOT DETECTED [facility] Comment on above: Performed By: #### C VDAGS #### [facility] [address] [place] [address] Dr. Ashlie Hills Rhino/Enterovirus Not detected Normal NOT DETECTED [facility] Comment on above: Performed By: #### C VDAGS #### [facility] [address] [place] [address] Dr. Ashlie Hills RP2 Header 1 RESPIRATORY PANEL: VIRUSES Normal [facility] Comment on above: Performed By: #### C VDAGS #### [facility] [address] [place] [address] Dr. Ashlie Hills RP2 Header 2 RESPIRATORY PANEL: BACTERIA Normal [facility] Comment on above: Performed By: #### C VDAGS #### [facility] [address] [place] [address] Dr. Ashlie Hills RSV Not detected Normal NOT DETECTED [facility] Comment on above: Performed By: #### C VDAGS #### [facility] [address] [place] [address] Dr. Ashlie Hills SARS-CoV-2 (COVID-19) RNA MADDY+probe Ql (Unsp spec) Not detected Normal NOT DETECTED [facility] Comment on above: Performed By: #### C VDAGS #### [facility] [address] [place] [address] Dr. Ashlie Hills XR CHEST 1 Von [...] MARYANNE POWER Date: 2022-12-04 22:23 Normal [facility] BLOOD GASES BTYon 12-04-2022 02 MODE ROOM AIR Normal [facility] Comment on above: Performed By: #### C BC #### [facility] [address] [place] [address] Dr. Ashlie Hills ALLENS TEST Positive Normal [facility] Comment on above: Performed By: #### C BC #### [facility] [address] [place] [address] Dr. Ashlie Hills Base excess Calc (Bld) [Moles/Vol] 5.4 mmol/L Critically high -2.0-2.0 [facility] Comment on above: Performed By: #### C BC #### [facility] [address] [place] [address] Dr. Ashlie Hills BIPAP PRESSURE Normal [facility] Comment on above: Performed By: #### C BC #### [facility] [address] [place] [address] Dr. Ashlie Hills CPAP Normal [facility] Comment on above: Performed By: #### C BC #### [facility] [address] [place] [address] Dr. Ashlie Hills FIO2 Normal [facility] Comment on above: Performed By: #### C BC #### [facility] [address] [place] [address] Dr. Ashlie Hills HCO3 (Bld) [Moles/Vol] 30.8 mmol/L Critically high 22.0-26 .0 [facility] Comment on above: Performed By: #### C BC #### [facility] [address] [place] [address] Dr. Ashlie Hills LPM Normal [facility] Comment on above: Performed By: #### C BC #### [facility] [address] [place] [address] Dr. Ashlie Hills MINUTE VOLUME Normal [facility] Comment on above: Performed By: #### C BC #### [facility] [address] [place] [address] Dr. Ashlie Hills Oxygen (Bld) [Partial pressure] 46.3 mm[Hg] Critically low 80.0-100.0 [facility] Comment on above: Performed By: #### C BC #### [facility] [address] [place] [address] Dr. Ashlie Hills Oxygen saturation in Blood 83.9 % Critically low 95.0-100.0 [facility] Comment on above: Performed By: #### C BC #### [facility] [address] [place] [address] Dr. Ashlie Hills PCO2 54.2 mmHg Critically high 35.0-45.0 [facility] Comment on above: Performed By: #### C BC #### [facility] [address] [place] [address] Dr. Ashlie Hills PEEP [facility] Comment on above: Performed By: #### C BC #### [facility] [address] [place] [address] Dr. Ashlie Hills pH (Bld) 7.363 [pH] Normal 7.350-7.450 [facility] Comment on above: Performed By: #### C BC #### [facility] [address] [place] [address] Dr. Ashlie Hills PIP [facility] Comment on above: Performed By: #### C BC #### [facility] [address] [place] [address] Dr. Ashlie Hills PS [facility] Comment on above: Performed By: #### C BC #### [facility] [address] [place] [address] Dr. Ashlie Hills PUNCTURE SITE LR [facility] Comment on above: Performed By: #### C BC #### [facility] [address] [place] [address] Dr. Ashlie Hills [facility] Comment on above: Performed By: #### C BC #### [facility] [address] [place] [address] Dr. Ashlie Hills [facility] Comment on above: Performed By: #### C BC #### [facility] [address] [place] [address] Dr. Ashlie Hills [facility] Comment on above: Performed By: #### C BC #### [facility] [address] [place] [address] Dr. Ashlie Hills BNPon 12-04-2022 Natriuretic peptide B (Bld) [Mass/Vol] 76.0 pg/mL Normal <=900.0 [facility] Comment on above: Performed By: #### P OCGLUC #### [facility] [address] [place] [address] Dr. Ashlie Hills CBC AUTO DIFFon 12-04-2022 BASO # 0.1 103/ul Normal 0.0-0.1 [facility] Comment on above: Performed By: #### C BC #### [facility] [address] [place] [address] Dr. Ashlie Hills Basophils/100 WBC (Bld) 0.6 % Normal 0.2-2.[address] [facility] Comment on above: Performed By: #### C BC #### [facility] [address] [place] [address] Dr. Ashlie Hills EO # 0.2 103/ul Normal 0.0-0.7 [facility] Comment on above: Performed By: #### C BC #### [facility] [address] [place] [address] Dr. Ashlie Hills Eosinophils/100 WBC (Bld) 1.9 % Normal 0.9-7.0 [facility] Comment on above: Performed By: #### C BC #### [facility] [address] [place] [address] Dr. Ashlie Hills Erythrocyte distribution width (RBC) [Ratio] 15.0 % Normal 11.0-15.0 [facility] Comment on above: Performed By: #### C BC #### [facility] [address] [address] [address] Ashlie Hills Hematocrit (Bld) [Volume fraction] 49.1 % Critically high 36.0-48.0 [facility] Comment on above: Performed By: #### C BC #### [facility] [address] [address] [address] Ashlie Hills Hemoglobin (Bld) [Mass/Vol] 15.6 g/dL Normal 12.0-16.0 [facility] Comment on above: Performed By: #### C BC #### [facility] [address] [address] [address] Ashlie Hills IG # 0.02 10e3/ul Normal 0.00-0.03 [facility] Comment on above: Performed By: #### C BC #### [facility] [address] [address] [address] Ashlie Hills IG % 0.2 % Normal 0.0-0.5 [facility] Comment on above: Performed By: #### C BC #### [facility] [address] [address] [address] Ashlie Hills LYMPH # 2.8 103/ul Normal 1.2-3.8 [facility] Comment on above: Performed By: #### C BC #### [facility] [address] [address] [address] Ashlie Hills Lymphocytes/100 WBC (Bld) 29.9 % Normal 20.5-60.0 [facility] Comment on above: Performed By: #### C BC #### [facility] [address] [address] [address] Ashlie Hills MANUAL DIFF REQ NO Normal [facility] Comment on above: Performed By: #### C BC #### [facility] [address] [place] [address] Dr. Ashlie Hills MCH (RBC) [Entitic mass] 28.5 pg Normal 26.7-34.0 [facility] Comment on above: Performed By: #### C BC #### [facility] [address] [address] [address] Ashlie Hills MCHC (RBC) [Mass/Vol] 31.8 g/dL Normal 29.9-35.2 [facility] Comment on above: Performed By: #### C BC #### [facility] [address] [address] [address] Ashlie Hills MCV (RBC) [Entitic vol] 89.8 fL Normal 81.0-99.[address] [facility] Comment on above: Performed By: #### C BC #### [facility] [address] [address] [address] Ashlie Hills MONO # 1.0 103/ul Critically high 0.3-0.8 [facility] Comment on above: Performed By: #### C BC #### [facility] [address] [address] [address] Ashlie Hills Monocytes/100 WBC (Bld) 10.6 % Normal 1.7-12.[address] [facility] Comment on above: Performed By: #### C BC #### [facility] [address] [address] [address] Ashlie Hills NEUT # 5.3 103/ul Normal 1.4-6.5 [facility] Comment on above: Performed By: #### C BC #### [facility] [address] [address] [address] Ashlie Hills Neutrophils/100 WBC (Bld) 56.8 % Normal 43.0-75.0 [facility] Comment on above: Performed By: #### C BC #### [facility] [address] [address] [address] Ashlie Hills Platelet mean volume (Bld) [Entitic vol] 12.5 fL Normal 9.5-13.5 [facility] Comment on above: Performed By: #### C BC #### [facility] [address] [address] [address] Ashlie Hills PLT 109 103/ul Critically low 150-450 [facility] Comment on above: Performed By: #### C BC #### [facility] [address] [place] [address] Dr. Ashlie Hills RBC 5.47 106/ul Critically high 4.20-5.40 [facility] Comment on above: Performed By: #### C BC #### [facility] [address] [place] [address] Dr. Ashlie Hills WBC 9.4 103/ul Normal 4.0-11.0 [facility] Comment on above: Performed By: #### C BC #### [facility] [address] [place] [address] Dr. Ashlie Hills PROF 14(COMP METB)on 023 Albumin [Mass/Vol] 2.9 g/dL Critically low 3.4-5.0 e [facility] Comment on above: Performed By: #### C BC #### [facility] [address] [place] [address] Dr. Ashlie Hills Albumin/Globulin [Mass ratio] 0.6 {ratio} Normal [facility] Comment on above: Performed By: #### C BC #### [facility] [address] [place] [address] Dr. Ashlie Hills ALP [Catalytic activity/Vol] 64 U/L Normal 46-116 [facility] Comment on above: Performed By: #### C BC #### [facility] [address] [place] [address] Dr. Ashlie Hills ALT [Catalytic activity/Vol] 16 U/L Normal 14-59 [facility] Comment on above: Performed By: #### C BC #### [facility] [address] [place] [address] Dr. Ashlie Hills Anion gap [Moles/Vol] 9.6 mmol/L Normal [facility] Comment on above: Performed By: #### C BC #### [facility] [address] [place] [address] Dr. Ashlie Hills AST [Catalytic activity/Vol] 16 U/L Normal 15-37 [facility] Comment on above: Performed By: #### C BC #### [facility] [address] [place] [address] Dr. Ashlie Hills Bilirubin [Mass/Vol] 0.5 mg/dL Normal 0.2-1.0 [facility] Comment on above: Performed By: #### C BC #### [facility] [address] [address] [address] Ashlie Hills Calcium [Mass/Vol] 8.7 mg/dL Normal 8.5-10.1 [facility] Comment on above: Performed By: #### C BC #### [facility] [address] [address] [address] Ashlie Hills Chloride [Moles/Vol] 103 mmol/L Normal 98-107 [facility] Comment on above: Performed By: #### C BC #### [facility] [address] [address] [address] Ashlie Hills CO2 [Moles/Vol] 30.7 mmol/L Normal 21.0-32.0 [facility] Comment on above: Performed By: #### C BC #### [facility] [address] [place] [address] Dr. Ashlie Hills Creatinine [Mass/Vol] 0.96 mg/dL Normal 0.55-1.02 [facility] Comment on above: Performed By: #### C BC #### [facility] [address] [place] [address] Dr. Ashlie Hills EGFR-AF MALDIVIAN >60 Normal >=60 [facility] Comment on above: Performed By: #### C BC #### [facility] [address] [place] [address] Dr. Ashlie Hills EGFR-NON AF MALDIVIAN >60 Normal >=60 [facility] Comment on above: Performed By: #### C BC #### [facility] [address] [address] [address] Ashlie Hills Globulin (S) [Mass/Vol] 4.7 g/dL Normal [facility] Comment on above: Performed By: #### C BC #### [facility] [address] [address] [address] Ashlie Hills Glucose [Mass/Vol] 170 mg/dL Critically high 74-[address] [facility] Comment on above: Performed By: #### C BC #### [facility] [address] [address] [address] Ashlie Hills Potassium [Moles/Vol] 4.3 mmol/L Normal 3.5-5.1 [facility] Comment on above: Performed By: #### C BC #### [facility] [address] [address] [address] Ashlie Hills Protein [Mass/Vol] 7.6 g/dL Normal 6.4-8.2 [facility] Comment on above: Performed By: #### C BC #### [facility] [address] [address] [address] Ashlie Hills Sodium [Moles/Vol] 139 mmol/L Normal 136-145 [facility] Comment on above: Performed By: #### C BC #### [facility] [address] [address] [address] Ashlie Hills Urea nitrogen [Mass/Vol] 16.0 mg/dL Normal 7.0-18.0 [facility] Comment on above: Performed By: #### C BC #### [facility] [address] [address] [address] Ashlie Hills Urea nitrogen/Creatinine [Mass ratio] 16.7 mg/mg Normal [facility] Comment on above: Performed By: #### C BC #### [facility] [address] [address] [address] Ashlie Hills SYMPTOMATIC COVID-19 ANTIGEN on 12-04-2022 EUA Statement SEE BELOW Normal [facility] Comment on above: Result Comment: This [...] sooner. Performed By: #### C VDAGS #### [facility] [address] [place] [address] Dr. Ashlie Hills SARS-CoV-2 (COVID-19) RNA MADDY+probe Ql (Unsp spec) Negative Normal NEGATIVE [facility] Comment on above: Performed By: #### C VDAGS #### [facility] [address] [place] [address] Dr. Ashlie Hills TROPONIN, HIGH SENSITIVITYon 12-04-2022 HSTROP 8.9 pg/mL Normal 4.0-51.3 [facility] Comment on above: Result Comment: CUT- OFF POINTS HAVE BEEN ESTABLISHED BASED ON THE FOURTH UNIVERSAL DEFINITIONS OF MYOCARDIAL INFARCTION. THE UPPER REFERENCE LIMIT (URL) OF TROPONIN, DEFINED THE 99TH PERCENTILE OF cTnI DISTRIBUTION IN A REFERENCE POPULATION, HAS BEEN CONFIRMED THE DECISION THRESHOLD FOR CA DIAGNOSIS. Performed By: #### P OCGLUC #### [facility] [address] [place] [address] Dr. Ashlie Hills MICROALBUMIN, RAND URon - mALB 35.8 mg/dL Critically high <=30.0 [facility] Comment on above: Performed By: #### C VDAGS #### [facility] [address] [place] [address] Dr. Ashlie Hills UA RANDOM W/MICROSCOPICon BACTERIA NONE SEEN Normal NONE SEEN [facility] Comment on above: Performed By: #### C VDAGS #### [facility] [address] [place] [address] Dr. Ashlie Hills Bilirubin Ql (U) Negative Normal NEGATIVE [facility] Comment on above: Performed By: #### C VDAGS #### [facility] [address] [place] [address] Dr. Ashlie Hills CAST SEEN Abnormal NONE SEEN [facility] Comment on above: Performed By: #### C VDAGS #### [facility] [address] [place] [address] Dr. Ashlie Hills Clarity (U) CLEAR Normal CLEAR [facility] Comment on above: Performed By: #### C VDAGS #### [facility] [address] [place] [address] Dr. Ashlie Hills Color (U) YELLOW Normal YELLOW [facility] Comment on above: Performed By: #### C VDAGS #### [facility] [address] [place] [address] Dr. Ashlie Hills Crystals LM Nom (Urine sed) NONE SEEN Normal NONE SEEN [facility] Comment on above: Performed By: #### C VDAGS #### [facility] [address] [place] [address] Dr. Ashlie Hills Epithelial cells LM Ql (Urine sed) MODERATE Abnormal NONE SEEN /RARE [facility] Comment on above: Performed By: #### C VDAGS #### [facility] [address] [place] [address] Dr. Ashlie Hills Glucose Ql (U) Negative Normal NEGATIVE [facility] Comment on above: Performed By: #### C VDAGS #### [facility] [address] [place] [address] Dr. Ashlie Hills Hemoglobin Ql (U) TRACE-INTACT Abnormal NEGATIVE [facility] Comment on above: Performed By: #### C VDAGS #### [facility] [address] [place] [address] Dr. Ashlie Hills Ketones Ql (U) Negative Normal NEGATIVE [facility] Comment on above: Performed By: #### C VDAGS #### [facility] [address] [place] [address] Dr. Ashlie Hills LEUKOCYTES Negative Normal NEGATIVE [facility] Comment on above: Performed By: #### C VDAGS #### [facility] [address] [place] [address] Dr. Ashlie Hills MUCOUS NONE SEEN Normal NONE SEEN [facility] Comment on above: Performed By: #### C VDAGS #### [facility] [address] [place] [address] Dr. Ashlie Hills Nitrite Ql (U) Negative Normal NEGATIVE [facility] Comment on above: Performed By: #### C VDAGS #### [facility] [address] [place] [address] Dr. Ashlie Hills pH (U) 5.0 [pH] Normal 5-9 [facility] Comment on above: Performed By: #### C VDAGS #### [facility] [address] [place] [address] Dr. Ashlie Hills RBC 0-2 Normal 0-2 [facility] Comment on above: Performed By: #### C VDAGS #### [facility] [address] [place] [address] Dr. Ashlie Hills SPEC GRAVITY 1.030 Abnormal 1.005-<=1.025 [facility] Comment on above: Performed By: #### C VDAGS #### [facility] [address] [place] [address] Dr. Ashlie Hills UA PROTEIN 100 mg/dl Abnormal NEGATIVE/ TRACE [facility] Comment on above: Performed By: #### C VDAGS #### [facility] [address] [place] [address] Dr. Ashlie Hills Urobilinogen Qn (U) 0.2 {Little'U}/dL Normal 0.2 - 1. 0 [facility] Comment on above: Performed By: #### C VDAGS #### [facility] [address] [place] [address] Dr. Ashlie Hills WBC NONE SEEN Normal NONE SEEN [facility] Comment on above: Performed By: #### C VDAGS #### [facility] [address] [place] [address] Dr. Ashlie Hills CBC AUTO DIFFon 11-22-2022 BASO # 0.0 103/ul Normal 0.0-0.1 [facility] Comment on above: Performed By: #### C BC #### [facility] [address] [place] [address] Dr. Ashlie Hills Basophils/100 WBC (Bld) 0.3 % Normal 0.2-2.[address] [facility] Comment on above: Performed By: #### C BC #### [facility] [address] [address] [address] Ashlie Hills EO # 0.4 103/ul Normal 0.0-0.7 [facility] Comment on above: Performed By: #### C BC #### [facility] [address] [place] [address] Dr. Ashlie Hlils Eosinophils/100 WBC (Bld) 3.0 % Normal 0.9-7.0 [facility] Comment on above: Performed By: #### C BC #### [facility] [address] [place] [address] Dr. Ashlie Hills Erythrocyte distribution width (RBC) [Ratio] 15.3 % Critically high 11.0-15.0 [facility] Comment on above: Performed By: #### C BC #### [facility] [address] [place] [address] Dr. Ashlie Hills Hematocrit (Bld) [Volume fraction] 52.4 % Critically high 36.0-48.0 [facility] Comment on above: Performed By: #### C BC #### [facility] [address] [place] [address] Dr. Ashlie Hills Hemoglobin (Bld) [Mass/Vol] 16.8 g/dL Critically high 12.0-16.0 [facility] Comment on above: Performed By: #### C BC #### [facility] [address] [place] [address] Dr. Ashlie Hills IG # 0.04 10e3/ul Critically high 0.00-0.03 [facility] Comment on above: Performed By: #### C BC #### [facility] [address] [place] [address] Dr. Ashlie Hills IG % 0.3 % Normal 0.0-0.5 [facility] Comment on above: Performed By: #### C BC #### [facility] [address] [place] [address] Dr. Ashlie Hills LYMPH # 4.5 103/ul Critically high 1.2-3.8 [facility] Comment on above: Performed By: #### C BC #### [facility] [address] [place] [address] Dr. Ashlie Hills Lymphocytes/100 WBC (Bld) 33.2 % Normal 20.5-60.0 [facility] Comment on above: Performed By: #### C BC #### [facility] [address] [place] [address] Dr. Ashlie Hills MANUAL DIFF REQ NO Normal [facility] Comment on above: Performed By: #### C BC #### [facility] [address] [place] [address] Dr. Ashlie Hills MCH (RBC) [Entitic mass] 28.0 pg Normal 26.7-34.0 [facility] Comment on above: Performed By: #### C BC #### [facility] [address] [place] [address] Dr. Ashlie Hills MCHC (RBC) [Mass/Vol] 32.1 g/dL Normal 29.9-35.2 [facility] Comment on above: Performed By: #### C BC #### [facility] [address] [place] [address] Dr. Ashlie Hills MCV (RBC) [Entitic vol] 87.3 fL Normal 81.0-99.[address] [facility] Comment on above: Performed By: #### C BC #### [facility] [address] [place] [address] Dr. Ashlie Hills MONO # 0.8 103/ul Normal 0.3-0.8 [facility] Comment on above: Performed By: #### C BC #### [facility] [address] [place] [address] Dr. Ashlie Hills Monocytes/100 WBC (Bld) 5.7 % Normal 1.7-12.[address] [facility] Comment on above: Performed By: #### C BC #### [facility] [address] [place] [address] Dr. Ashlie Hills NEUT # 7.8 103/ul Critically high 1.4-6.5 [facility] Comment on above: Performed By: #### C BC #### [facility] [address] [address] [address] Ashlie Hills Neutrophils/100 WBC (Bld) 57.5 % Normal 43.0-75.0 [facility] Comment on above: Performed By: #### C BC #### [facility] [address] [address] [address] Ashlie Hills Platelet mean volume (Bld) [Entitic vol] 12.0 fL Normal 9.5-13.5 [facility] Comment on above: Performed By: #### C BC #### [facility] [address] [address] [address] Ashlie Hills PLT 152 103/ul Normal 150-450 [facility] Comment on above: Performed By: #### C BC #### [facility] [address] [place] [address] Dr. Ashlie Hills RBC 6.00 106/ul Critically high 4.20-5.40 [facility] Comment on above: Performed By: #### C BC #### [facility] [address] [place] [address] Dr. Ashlie Hills WBC 13.6 103/ul Critically high 4.0-11.0 [facility] Comment on above: Performed By: #### C BC #### [facility] [address] [place] [address] Dr. Ashlie Hills LIPID PROFILEon 11-22-2022 CHOL-HDL RATIO NORM SEE BELOW Normal [facility] Comment on above: Result Comment: 3.3 - 4.4 LOW RISK 4.4 - 7.1 AVERAGE RISK 7.1 - 11.0 MODERATE RISK >11.0 HIGH RISK Performed By: #### C BC #### [facility] [address] [place] [address] Dr. Ashlie Hills Cholesterol [Mass/Vol] 139 mg/dL Normal <=200 Th [facility] Comment on above: Performed By: #### C BC #### [facility] [address] [place] [address] Dr. Ashlie Hills Cholesterol in HDL [Mass/Vol] 35 mg/dL Critically low 40-60 [facility] Comment on above: Performed By: #### C BC #### [facility] [address] [address] [address] Ashlie Hills Cholesterol in LDL [Mass/Vol] 67.4 mg/dL Normal [facility] Comment on above: Performed By: #### C BC #### [facility] [address] [address] [address] Ashlie Hills Cholesterol.total/Gianna sterol in HDL [Mass ratio] 4.0 {ratio} Normal [facility] Comment on above: Performed By: #### C BC #### [facility] [address] [place] [address] Dr. Ashlie Hills HDL NORMAL > or = 60 mg/dl - LOW CARDIOVASCULAR RISK <40 mg/dl - HIGH CARDIOVASCULAR RISK Normal [facility] Comment on above: Performed By: #### C BC #### [facility] [address] [place] [address] Dr. Ashlie Hills LDL CALC NORMAL SEE BELOW Normal [facility] Comment on above: Result Comment: <100 mg/dl OPTIMAL 100 - 129 mg/dl NEAR OR ABOVE OPTIMAL 130 - 159 mg/dl BORDERLINE HIGH 160 - 189 mg/dl HIGH >190 mg/dl VERY HIGH Performed By: #### C BC #### [facility] [address] [place] [address] Dr. Ashlie Hills Triglyceride [Mass/Vol] 183 mg/dL Critically high <=150 [facility] Comment on above: Performed By: #### C BC #### [facility] [address] [place] [address] Dr. Ashlie Hills VLDL CALC 36.6 mg/dL Normal [facility] Comment on above: Performed By: #### C BC #### [facility] [address] [place] [address] Dr. Ashlie Hills MG MAMM SCREEN 3D ALEX CADon 11-22-2022 MG MAMM SCREEN 3D ALEX CAD Patient: MITZI MACIAS Exam Date: 11/22/2022 : 1970 Gender:F Ordering : SAYDA BLAS DIRECTOR OF FINANCE Admission #: [id number] Family : Order #: [id number] CLICK HERE TO VIEW EXAM RADIOLOGY REPORT [...] unknown cancer at age 75. LOCATION: [facility] BREAST COMPOSITION: Almost entirely fatty. [...] M.D. on 11/22/2022 at 12:09 Normal [facility] PROF 14(COMP METB)on 023 Albumin [Mass/Vol] 3.0 g/dL Critically low 3.4-5.0 [facility] Comment on above: Performed By: #### C BC #### [facility] [address] [place], [place] [address] Dr. Ashlie Hills Albumin/Globulin [Mass ratio] 0.6 {ratio} Normal [facility] Comment on above: Performed By: #### C BC #### [facility] [address] [place], [place] [address] Dr. Ashlie Hills ALP [Catalytic activity/Vol] 68 U/L Normal 46-116 [facility] Comment on above: Performed By: #### C BC #### [facility] [address] [address] [address] Ashlie Hills ALT [Catalytic activity/Vol] 14 U/L Normal 14-59 [facility] Comment on above: Performed By: #### C BC #### [facility] [address] [place] [address] Dr. Ashlie Hills Anion gap [Moles/Vol] 12.1 mmol/L Normal Th [facility] Comment on above: Performed By: #### C BC #### [facility] [address] [address] [address] Ashlie Hills AST [Catalytic activity/Vol] 9 U/L Critically low 15-37 [facility] Comment on above: Performed By: #### C BC #### [facility] [address] [place] [address] Dr. Ashlie Hills Bilirubin [Mass/Vol] 0.4 mg/dL Normal 0.2-1.0 [facility] Comment on above: Performed By: #### C BC #### [facility] [address] [place] [address] Dr. Ashlie Hills Calcium [Mass/Vol] 9.0 mg/dL Normal 8.5-10.1 [facility] Comment on above: Performed By: #### C BC #### [facility] [address] [place] [address] Dr. Ashlie Hills Chloride [Moles/Vol] 105 mmol/L Normal 98-107 [facility] Comment on above: Performed By: #### C BC #### [facility] [address] [place] [address] Dr. Ashlie Hills CO2 [Moles/Vol] 30.7 mmol/L Normal 21.0-32.0 [facility] Comment on above: Performed By: #### C BC #### [facility] [address] [place] [address] Dr. Ashlie Hills Creatinine [Mass/Vol] 0.77 mg/dL Normal 0.55-1.02 [facility] Comment on above: Performed By: #### C BC #### [facility] [address] [place] [address] Dr. Ashlie Hills EGFR-AF MALDIVIAN >60 Normal >=60 [facility] Comment on above: Performed By: #### C BC #### [facility] [address] [address] [address] Ashlie Hills EGFR-NON AF MALDIVIAN >60 Normal >=60 [facility] Comment on above: Performed By: #### C BC #### [facility] [address] [address] [address] Ashlie Hills Globulin (S) [Mass/Vol] 4.8 g/dL Normal [facility] Comment on above: Performed By: #### C BC #### [facility] [address] [address] [address] Ashlie Hills Glucose [Mass/Vol] 162 mg/dL Critically high 74-[address] [facility] Comment on above: Performed By: #### C BC #### [facility] [address] [address] [address] Ashlie Hills Potassium [Moles/Vol] 3.8 mmol/L Normal 3.5-5.1 [facility] Comment on above: Performed By: #### C BC #### [facility] [address] [address] [address] Ashlie Hills Protein [Mass/Vol] 7.8 g/dL Normal 6.4-8.2 [facility] Comment on above: Performed By: #### C BC #### [facility] [address] [address] [address] Ashlie Hills Sodium [Moles/Vol] 144 mmol/L Normal 136-145 [facility] Comment on above: Performed By: #### C BC #### [facility] [address] [address] [address] Ashlie Hills Urea nitrogen [Mass/Vol] 24.0 mg/dL Critically high 7.0-18.0 [facility] Comment on above: Performed By: #### C BC #### [facility] [address] [address] [address] Ashlie Hills Urea nitrogen/Creatinine [Mass ratio] 31.2 mg/mg Normal [facility] Comment on above: Performed By: #### C BC #### [facility] [address] [place] [address] Dr. Ashlie Hills CBC AUTO DIFFon 10-05-2022 BASO # 0.1 103/ul Normal 0.0-0.1 [facility] Comment on above: Performed By: #### C BC #### [facility] [address] [place] [address] Dr. Ashlie Hills Basophils/100 WBC (Bld) 0.6 % Normal 0.2-2.[address] [facility] Comment on above: Performed By: #### C BC #### [facility] [address] [place] [address] Dr. Ashlie Hills EO # 0.3 103/ul Normal 0.0-0.7 [facility] Comment on above: Performed By: #### C BC #### [facility] [address] [place] [address] Dr. Ashlie Hills Eosinophils/100 WBC (Bld) 2.1 % Normal 0.9-7.0 [facility] Comment on above: Performed By: #### C BC #### [facility] [address] [place] [address] Dr. Ashlie Hills Erythrocyte distribution width (RBC) [Ratio] 15.9 % Critically high 11.0-15.0 [facility] Comment on above: Performed By: #### C BC #### [facility] [address] [place] [address] Dr. Ashlie Hills Hematocrit (Bld) [Volume fraction] 51.8 % Critically high 36.0-48.0 [facility] Comment on above: Performed By: #### C BC #### [facility] [address] [place] [address] Dr. Ashlie Hills Hemoglobin (Bld) [Mass/Vol] 16.6 g/dL Critically high 12.0-16.0 [facility] Comment on above: Performed By: #### C BC #### [facility] [address] [place] [address] Dr. Ashlie Hills IG # 0.03 10e3/ul Normal 0.00-0.03 [facility] Comment on above: Performed By: #### C BC #### [facility] [address] [place] [address] Dr. Ashlie Hills IG % 0.2 % Normal 0.0-0.5 [facility] Comment on above: Performed By: #### C BC #### [facility] [address] [place] [address] Dr. Ashlie Hills LYMPH # 3.9 103/ul Critically high 1.2-3.8 [facility] Comment on above: Performed By: #### C BC #### [facility] [address] [place] [address] Dr. Ashlie Hills Lymphocytes/100 WBC (Bld) 31.7 % Normal 20.5-60.0 [facility] Comment on above: Performed By: #### C BC #### [facility] [address] [place] [address] Dr. Ashlie Hills MANUAL DIFF REQ NO Normal [facility] Comment on above: Performed By: #### C BC #### [facility] [address] [place] [address] Dr. Ashlie Hills MCH (RBC) [Entitic mass] 27.9 pg Normal 26.7-34.0 [facility] Comment on above: Performed By: #### C BC #### [facility] [address] [place] [address] Dr. Ashlie Hills MCHC (RBC) [Mass/Vol] 32.0 g/dL Normal 29.9-35.2 [facility] Comment on above: Performed By: #### C BC #### [facility] [address] [place] [address] Dr. Ashlie Hills MCV (RBC) [Entitic vol] 87.1 fL Normal 81.0-99.[address] [facility] Comment on above: Performed By: #### C BC #### [facility] [address] [place] [address] Dr. Ashlie Hills MONO # 0.7 103/ul Normal 0.3-0.8 [facility] Comment on above: Performed By: #### C BC #### [facility] [address] [address] [address] Ashlie Hills Monocytes/100 WBC (Bld) 5.8 % Normal 1.7-12.[address] [facility] Comment on above: Performed By: #### C BC #### [facility] [address] [address] [address] Ashlie Hills NEUT # 7.3 103/ul Critically high 1.4-6.5 [facility] Comment on above: Performed By: #### C BC #### [facility] [address] [address] [address] Ashlie Hills Neutrophils/100 WBC (Bld) 59.6 % Normal 43.0-75.0 [facility] Comment on above: Performed By: #### C BC #### [facility] [address] [place] [address] Dr. Ashlie Hills Platelet mean volume (Bld) [Entitic vol] 11.7 fL Normal 9.5-13.5 [facility] Comment on above: Performed By: #### C BC #### [facility] [address] [address] [address] Ashlie Hills PLT 117 103/ul Critically low 150-450 [facility] Comment on above: Performed By: #### C BC #### [facility] [address] [address] [address] Ashlie Hills RBC 5.95 106/ul Critically high 4.20-5.40 [facility] Comment on above: Performed By: #### C BC #### [facility] [address] [address] [address] Ashlie Hills WBC 12.3 103/ul Critically high 4.0-11.0 [facility] Comment on above: Performed By: #### C BC #### [facility] [address] [place] [address] ABD/PELV W CONon [...] by: RICCO PICKARD Date: 2022-10-05 13:13 Normal [facility] ER URINE PROFILEon 3 Bilirubin Ql (U) Negative Normal NEGATIVE [facility] Comment on above: Performed By: #### P OCGLUC #### [facility] [address] [place] [address] Dr. Ashlie Hills Clarity (U) CLEAR Normal CLEAR [facility] Comment on above: Performed By: #### P OCGLUC #### [facility] [address] [address] [address] Ashlie Hills Color (U) YELLOW Normal YELLOW [facility] Comment on above: Performed By: #### P OCGLUC #### [facility] [address] [address] [address] Ashlie HOBBS A micrscopic examination will be performed if indicated. Normal [facility] Comment on above: Performed By: #### P OCGLUC #### [facility] [address] [address] [address] Ashlie Hills Glucose Ql (U) Negative Normal NEGATIVE [facility] Comment on above: Performed By: #### P OCGLUC #### [facility] [address] [address] [address] Ashlie Hills Hemoglobin Ql (U) Negative Normal NEGATIVE [facility] Comment on above: Performed By: #### P OCGLUC #### [facility] [address] [address] [address] Ashlie Hills Ketones Ql (U) Negative Normal NEGATIVE [facility] Comment on above: Performed By: #### P OCGLUC #### [facility] [address] [address] [address] Ashlie Hills LEUKOCYTES Negative Normal NEGATIVE [facility] Comment on above: Performed By: #### P OCGLUC #### [facility] [address] [address] [address] Ashlie Hills Nitrite Ql (U) Negative Normal NEGATIVE [facility] Comment on above: Performed By: #### P OCGLUC #### [facility] [address] [address] [address] Ashlie Hills pH (U) 6.0 [pH] Normal 5-9 [facility] Comment on above: Performed By: #### P OCGLUC #### [facility] [address] [place] [address] Dr. Ashlie Hills Protein (U) [Mass/Vol] 100 mg/dL Abnormal NEGAT YURY/ TRACE [facility] Comment on above: Performed By: #### P OCGLUC #### [facility] [address] [place] [address] Dr. Ashlie Hills SPEC GRAVITY 1.010 Normal 1.005-<=1.025 [facility] Comment on above: Performed By: #### P OCGLUC #### [facility] [address] [place] [address] Dr. Ashlie Hills UR MICRO IND INDICATED Normal [facility] Comment on above: Performed By: #### P OCGLUC #### [facility] [address] [place] [address] Dr. Ashlie Hills Urobilinogen Qn (U) 1.0 {Little'U}/dL Normal 0.2 - 1. 0 [facility] Comment on above: Performed By: #### P OCGLUC #### [facility] [address] [place] [address] Dr. Ashlie Hills LIPASEon 10-05-2022 Lipase [Catalytic activity/Vol] 1771.0 U/L Critically high 73.0-393.0 [facility] Comment on above: Performed By: #### C BC #### [facility] [address] [place] [address] Dr. Ashlie Hills PREG HCG QUALon 10-05-2022 , QUAL Negative Normal NEGATIVE [facility] Comment on above: Performed By: #### P OCGLUC #### [facility] [address] [place] [address] Dr. Ashlie Hills PROF 14(COMP METB)on 023 Albumin [Mass/Vol] 3.2 g/dL Critically low 3.4-5.0 [facility] Comment on above: Performed By: #### C BC #### [facility] [address] [place] [address] Dr. Ashlie Hills Albumin/Globulin [Mass ratio] 0.7 {ratio} Normal [facility] Comment on above: Performed By: #### C BC #### [facility] [address] [place] [address] Dr. Ashlie Hills ALP [Catalytic activity/Vol] 70 U/L Normal 46-116 [facility] Comment on above: Performed By: #### C BC #### [facility] [address] [place] [address] Dr. Ashlie Hills ALT [Catalytic activity/Vol] 11 U/L Critically low 14-59 [facility] Comment on above: Performed By: #### C BC #### [facility] [address] [place] [address] Dr. Ashlie Hills Anion gap [Moles/Vol] 10.3 mmol/L Normal [facility] Comment on above: Performed By: #### C BC #### [facility] [address] [place] [address] Dr. Ashlie Hills AST [Catalytic activity/Vol] 11 U/L Critically low 15-37 [facility] Comment on above: Performed By: #### C BC #### [facility] [address] [place] [address] Dr. Ashlie Hills Bilirubin [Mass/Vol] 0.9 mg/dL Normal 0.2-1.0 [facility] Comment on above: Performed By: #### C BC #### [facility] [address] [address] [address] Ashlie Hills Calcium [Mass/Vol] 9.3 mg/dL Normal 8.5-10.1 [facility] Comment on above: Performed By: #### C BC #### [facility] [address] [place] [address] Dr. Ashlie Hills Chloride [Moles/Vol] 105 mmol/L Normal 98-107 [facility] Comment on above: Performed By: #### C BC #### [facility] [address] [place], [place] [address] Dr. Ashlie Hills CO2 [Moles/Vol] 30.6 mmol/L Normal 21.0-32.0 [facility] Comment on above: Performed By: #### C BC #### [facility] [address] [place] [address] Dr. Ashlie Hills Creatinine [Mass/Vol] 0.62 mg/dL Normal 0.55-1.02 [facility] Comment on above: Performed By: #### C BC #### [facility] [address] [place] [address] Dr. Ashlie Hills EGFR-AF MALDIVIAN >60 Normal >=60 [facility] Comment on above: Performed By: #### C BC #### [facility] [address] [place] [address] Dr. Ashlie Hills EGFR-NON AF MALDIVIAN >60 Normal >=60 [facility] Comment on above: Performed By: #### C BC #### [facility] [address] [place] [address] Dr. Ashlie Hills Globulin (S) [Mass/Vol] 4.6 g/dL Normal [facility] Comment on above: Performed By: #### C BC #### [facility] [address] [address] [address] Ashlie Hills Glucose [Mass/Vol] 85 mg/dL Normal 74-106 [facility] Comment on above: Performed By: #### C BC #### [facility] [address] [address] [address] Ashlie Hills Potassium [Moles/Vol] 3.9 mmol/L Normal 3.5-5.1 [facility] Comment on above: Performed By: #### C BC #### [facility] [address] [address] [address] Ashlie Hills Protein [Mass/Vol] 7.8 g/dL Normal 6.4-8.2 [facility] Comment on above: Performed By: #### C BC #### [facility] [address] [place] [address] Dr. Ashlie Hills Sodium [Moles/Vol] 142 mmol/L Normal 136-145 [facility] Comment on above: Performed By: #### C BC #### [facility] [address] [place] [address] Dr. Ashlie Hills Urea nitrogen [Mass/Vol] 12.0 mg/dL Normal 7.0-18.0 [facility] Comment on above: Performed By: #### C BC #### [facility] [address] [place] [address] Dr. Ashlie Hills Urea nitrogen/Creatinine [Mass ratio] 19.4 mg/mg Normal [facility] Comment on above: Performed By: #### C BC #### [facility] [address] [address] [address] Ashlie Hills URINE MICROSCOPIC ONLYon BACTERIA TRACE Abnormal NONE SEEN [facility] Comment on above: Performed By: #### P OCGLUC #### [facility] [address] [address] [address] Ashlie Hills Bacteria identified Cx Nom (U) NOT INDICATED Normal [facility] Comment on above: Performed By: #### P OCGLUC #### [facility] [address] [place] [address] Dr. Ashlie Hills CAST NONE SEEN Normal NONE SEEN [facility] Comment on above: Performed By: #### P OCGLUC #### [facility] [address] [place] [address] Dr. Ashlie Hills Crystals LM Nom (Urine sed) NONE SEEN Normal NONE SEEN [facility] Comment on above: Performed By: #### P OCGLUC #### [facility] [address] [place] [address] Dr. Ashlie Hills Epithelial cells LM Ql (Urine sed) MODERATE Abnormal NONE SEEN /RARE [facility] Comment on above: Performed By: #### P OCGLUC #### [facility] [address] [place] [address] Dr. Ashlie Hills MUCOUS NONE SEEN Normal NONE SEEN [facility] Comment on above: Performed By: #### P OCGLUC #### [facility] [address] [place] [address] Dr. Ashlie Hills RBC 0-2 Normal 0-2 [facility] Comment on above: Performed By: #### P OCGLUC #### [facility] [address] [place] [address] Dr. Ashlie Hills WBC 0-2 Abnormal NONE SEEN [facility] Comment on above: Performed By: #### P OCGLUC #### [facility] [address] [place] [address] Dr. Ashlie Hills [facility]06 SARS-CoV-2 (COVID-19) RNA MADDY+probe Ql (Unsp spec) Detected Abnormal NOT DETECTED [facility] [...] for this test is supported by the [place] of Health and Human Service's declaration that [...] used). Performed By: #### C VDAGS #### [facility] [address] [place] [address] Dr. Ashlie Hills INFLUENZA A AND B AGon 09-21 [facility] SEE BELOW Normal [facility] Comment on above: Result Comment: Nega tive for Flu A protein angiten. Infection due to Flu A cannot be ruled out. Flu A angiten in the sample may be below the detection limit of the test. Performed By: #### I NFLUAB #### [facility] [address] [place] [address] Dr. Ashlie [facility] Normal [facility] Comment on above: Result Comment: Nega tive for Flu B protein antigen. Infection due to Flu B cannot be ruled out. Flu B antigen in the sample may be below the detection limit of the test. Performed By: #### I NFLUAB #### [facility] [address] [place] [address] Dr. Ashlie Hills INFLUENZA A AG Negative Normal NEGATIVE SEE COMMENT [facility] Comment on above: Performed By: #### I NFLUAB #### [facility] [address] [place] [address] Dr. Ashlie Hills INFLUENZA B AG Negative Normal NEGATIVE SEE COMMENT [facility] Comment on above: Performed By: #### I NFLUAB #### [facility] [address] [place] [address] ABD/PELV W CONon [...] dating back to at least 10/21/2018, unchanged. [email or web address].ncbi.replaced by [facility] anson.nih.gov/pmc/artic les/[id number]/ Electronically authenticated by: COLLIN HUERTAS Date: 2022-07-27 14:56 Normal [facility] CREATININEon 07-18-2022 Creatinine [Mass/Vol] 0.81 mg/dL Normal 0.55-1.02 [facility] Comment on above: Performed By: #### C BC #### [facility] [address] [place] [address] Dr. Ashlie Hills EGFR-AF MALDIVIAN >60 Normal >=60 [facility] Comment on above: Performed By: #### C BC #### [facility] [address] [place] [address] Dr. Ashlie Hills EGFR-NON AF MALDIVIAN >60 Normal >=60 [facility] Comment on above: Performed By: #### C BC #### [facility] [address] [place] [address] LOW EXT W [...] PATRICIA VELOZ Date: 2022-07-18 14:58 Normal [facility] XR KNEE LT 1_2 Von [...] HATTIE BAUTISTA Date: 2022-07-18 12:00 Normal [facility] ([facility])on 06-09 SARS-CoV-2 (COVID-19) RNA MADDY+probe Ql (Unsp spec) Not detected Normal NOT DETECTED [facility] [...] for this test is supported by the [place]ident Sur[place] of Health and Human Service's (HHS's) declaration [...] SARS-CoV-2. Performed By: #### C BC #### [facility] [address] [place] [address] Dr. Ashlie Hills INFLUENZA A AND B AGon 07-06 [facility] SEE BELOW Normal [facility] Comment on above: Result Comment: Nega tive for Flu A protein angiten. Infection due to Flu A cannot be ruled out. Flu A angiten in the sample may be below the detection limit of the test. Performed By: #### C BC #### [facility] [address] [place] [address] Dr. Ashlie Hills INFLUBNEGH SEE BELOW Normal [facility] Comment on above: Result Comment: Nega tive for Flu B protein antigen. Infection due to Flu B cannot be ruled out. Flu B antigen in the sample may be below the detection limit of the test. Performed By: #### C BC #### [facility] [address] [place] [address] Dr. Ashlie Hills INFLUENZA A AG Negative Normal NEGATIVE SEE COMMENT [facility] Comment on above: Performed By: #### C BC #### [facility] [address] [place] [address] Dr. Ashlie Hills INFLUENZA B AG Negative Normal NEGATIVE SEE COMMENT [facility] Comment on above: Performed By: #### C BC #### [facility] [address] [place] [address] Dr. Ashlie Hills POINT OF CARE GLUCOSEon 04-08 Glucose [Mass/Vol] 108 mg/dL Critically high 74-106 [facility] Comment on above: Performed By: #### C BC #### [facility] [address] [place] [address] Dr. Ashlie Hills RAGHU by IFAon 03-07-2022 Antinuclear Antibodies, IFA Negative Normal [facility] Comment on above: Result Comment: Nega tive <1:80 Borderline 1:80 Positive >1:80 ICAP nomenclature: AC-0 For more information about Hep-2 cell patterns use ANApatterns.org, the official website for the International Consensus on Antinuclear Antibody (RAGHU) Patterns (ICAP). Performed By: #### A NAIFA #### [facility] [address] [place] [address] Dr. Ashlie Hills IMMUNOFIXATION (TREVON), URINEo n 03-07-2022 TREVON Interpretation:U Comment Normal [facility] Comment on above: Result Comment: No m onoclonality detected. Performed By: #### C BC #### [facility] [address] [place] [address] Dr. Ashlie Hills IMMUNOFIXATION(TREVON),PROTEIN ELEC(PE),FREon 03-07-2022 Albumin [Mass/Vol] 3.0 g/dL Normal 2.9-4.4 [facility] Comment on above: Performed By: #### I NFLUAB #### [facility] [address] [address] [address] Ashlie Hills Albumin/Globulin [Mass ratio] 0.8 {ratio} Normal 0.7-1.7 [facility] Comment on above: Performed By: #### I NFLUAB #### [facility] [address] [place] [address] Dr. Ashlie Hills Esxuf-4-Ueayojci 0.3 g/dL Normal 0.0-0.4 [facility] Comment on above: Performed By: #### I NFLUAB #### [facility] [address] [address] [address] Ashlie Hills Tymww-4-Uiseciek 1.0 g/dL Normal 0.4-1.0 [facility] Comment on above: Performed By: #### I NFLUAB #### [facility] [address] [address] [address] Ashlie Hills Beta Globulin 1.8 g/dL Critically high 0.7-1.3 [facility] Comment on above: Performed By: #### I NFLUAB #### [facility] [address] [address] [address] Ashlie Hills Free [place] Lt Chains,S 45.2 mg/L Critically high 3.3-19.4 [facility] Comment on above: Performed By: #### I NFLUAB #### [facility] [address] [address] [address] Ashlie Hills Free Lambda Lt Chains,S 40.3 mg/L Critically high 5.7-26. 3 [facility] Comment on above: Performed By: #### I NFLUAB #### [facility] [address] [place] [address] Dr. Ashlie Hills Gamma Globulin 0.8 g/dL Normal 0.4-1.8 [facility] Comment on above: Performed By: #### I NFLUAB #### [facility] [address] [place] [address] Dr. Ashlie Hills Globulin (S) [Mass/Vol] 3.9 g/dL Normal 2.2-3.[address] [facility] Comment on above: Performed By: #### I NFLUAB #### [facility] [address] [place] [address] Dr. Ashlie Hills Immunofixation Result, Serum Comment Normal [facility] Comment on above: Result Comment: No m onoclonality detected. Performed By: #### I NFLUAB #### [facility] [address] [place] [address] Dr. Ashlie Hills Immunoglobulin A, Qn, Serum 776 mg/dL Critically high 87-352 [facility] Comment on above: Performed By: #### I NFLUAB #### [facility] [address] [place] [address] Dr. Ashlie Hills Immunoglobulin G, Qn, Serum 955 mg/dL Normal 586-1602 [facility] Comment on above: Performed By: #### I NFLUAB #### [facility] [address] [place] [address] Dr. Ashlie Hills Immunoglobulin M, Qn, Serum 39 mg/dL Normal 26-217 [facility] Comment on above: Performed By: #### I NFLUAB #### [facility] [address] [place] [address] Dr. Ashlie Hills [place]/Lambda Ratio, S 1.12 Normal 0.26-1.65 [facility] Comment on above: Performed By: #### I NFLUAB #### [facility] [address] [place] [address] Dr. Ashlie Hills M-Bright Not Observed Normal Not Observed [facility] Comment on above: Performed By: #### I NFLUAB #### [facility] [address] [place] [address] Dr. Ashlie Hills PDF . Normal [facility] Comment on above: Performed By: #### I NFLUAB #### [facility] [address] [place] [address] Dr. Ashlie Hills Please note: Comment Normal [facility] Comment on above: Result Comment: Prot ein electrophoresis scan will follow via computer, mail, or supervisor fertilizer delivery. Performed By: #### I NFLUAB #### [facility] [address] [place] [address] Dr. Ashlie Hills Protein [Mass/Vol] 6.9 g/dL Normal 6.0-8.5 [facility] Comment on above: Performed By: #### I NFLUAB #### [facility] [address] [place] [address] Dr. Ashlie Hills C-PEPTIDE, SERUMon C-Peptide, Serum 3.1 ng/mL Normal 1.1-4.4 [facility] Comment on above: Result Comment: C-Pe ptide reference interval is for fasting patients. Performed By: #### C PEPT #### [facility] [address] [place] [address] Dr. Ashlie Hills HEP B SURFACE ANTIGEN SCREEN on 03-04-2022 HBsAg Screen Negative Normal Negative [facility] Comment on above: Performed By: #### C BC #### [facility] [address] [place] [address] Dr. Ashlie Hills HEPATITIS C VIRUS AB W/ REFL EX QUANTon 03-04-2022 HCV AB <0.1 Normal 0.0-0.9 [facility] Comment on above: Performed By: #### I NFLUAB #### [facility] [address] [place] [address] Dr. Ashlie Hills Interpretation: Comment Normal [facility] Comment on above: Result Comment: Nega tive Not infected with HCV, unless recent infection is suspected or other evidence exists to indicate HCV infection. Performed By: #### I NFLUAB #### [facility] [address] [address] [address] Ashlie Hills MICROALBUMIN/ CREATININE RAT IOon 03-04-2022 Albumin, Urine 367.4 ug/mL Normal Not Estab. [facility] Comment on above: Performed By: #### C BC #### [facility] [address] [address] [address] Ashlie Hills Albumin/ Creatinine Ratio 239 mg/g creat Critically high 0-29 [facility] Comment on above: Result Comment: Norm al: 0 - 29 Moderately increased: 30 - 300 Severely increased: >300 Performed By: #### C BC #### [facility] [address] [address] [address] Ashlie Hills Creatinine, Urine 153.9 mg/dL Normal Not Estab. [facility] Comment on above: Performed By: #### C BC #### [facility] [address] [address] [address] Ashlie Hills VIT D 25-OH LABCORPon 2021 Vitamin D, 25-Hydroxy <4.0 Critically low 30.0-100.0 [facility] Comment on above: Result Comment: Graciela min D deficiency has been defined by the [place] of Medicine and an Endocrine Society practice guideline as a level of serum 25-OH vitamin D less than 20 ng/mL (1,2). The Endocrine Society went on to further define vitamin D insufficiency as a level between 21 and 29 ng/mL (2). 1. IOM ([place] of Medicine). 2010. Dietary reference intakes for calcium and D. [place]: The National Academies Press. 2. Lynda MF, Keely [place], Leandra LOPEZ, et al. Evaluation, treatment, and prevention of vitamin D deficiency: an Endocrine Society clinical practice guideline. JCEM. 2010; 96(7):1911-30. Performed By: #### C BC #### [facility] [address] [address] [address] Ashlie Hills GLYCOHEMOGLOBIN A1Con 2021 ADA RECOMMENDATION SEE BELOW Normal [facility] Comment on above: Result Comment: ADA RECOMMENDED LIMIT 4.0 - 6.0 ADA THERAPEUTIC TARGET < 7.0 ACTION SUGGESTED > 7.0 Performed By: #### C VDAGS #### [facility] [address] [place] [address] Dr. Ashlie Hills Glucose [Mass/Vol] 295 mg/dL Normal [facility] Comment on above: Performed By: #### C VDAGS #### [facility] [address] [place] [address] Dr. Ashlie Hills HbA1c (Bld) [Mass fraction] 11.9 % Critically high 4.5-6.2 [facility] Comment on above: Performed By: #### C VDAGS #### [facility] [address] [place] [address] Dr. Ashlie Hills HEMOGRAM AND PLATELon 2021 Hematocrit (Bld) [Volume fraction] 56.3 % Critically high 36.0-48.0 [facility] Comment on above: Performed By: #### C VDAGS #### [facility] [address] [place] [address] Dr. Ashlie Hills Hemoglobin (Bld) [Mass/Vol] 18.0 g/dL Critically high 12.0-16.0 [facility] Comment on above: Performed By: #### C VDAGS #### [facility] [address] [place] [address] Dr. Ashlie Hills MCH (RBC) [Entitic mass] 29.5 pg Normal 26.7-34.0 [facility] Comment on above: Performed By: #### C VDAGS #### [facility] [address] [place] [address] Dr. Ashlie Hills MCHC (RBC) [Mass/Vol] 32.0 g/dL Normal 29.9-35.2 [facility] Comment on above: Performed By: #### C VDAGS #### [facility] [address] [place] [address] Dr. Ashlie Hills MCV (RBC) [Entitic vol] 92.1 fL Normal 81.0-99.[address] [facility] Comment on above: Performed By: #### C VDAGS #### [facility] [address] [address] [address] Ashlie Hills PLT 123 103/ul Critically low 150-450 [facility] Comment on above: Performed By: #### C VDAGS #### [facility] [address] [address] [address] Ashlie Hills RBC 6.11 106/ul Critically high 4.20-5.40 [facility] Comment on above: Performed By: #### C VDAGS #### [facility] [address] [place] [address] Dr. Ashlie Hills WBC 16.4 103/ul Critically high 4.0-11.0 [facility] Comment on above: Performed By: #### C VDAGS #### [facility] [address] [place] [address] Dr. Ashlie Hills LIPID PROFILEon 03-03-2022 CHOL-HDL RATIO NORM SEE BELOW Normal [facility] Comment on above: Result Comment: 3.3 - 4.4 LOW RISK 4.4 - 7.1 AVERAGE RISK 7.1 - 11.0 MODERATE RISK >11.0 HIGH RISK Performed By: #### C VDAGS #### [facility] [address] [place] [address] Dr. Ashlie Hills Cholesterol [Mass/Vol] 159 mg/dL Normal <=200 [facility] Comment on above: Performed By: #### C VDAGS #### [facility] [address] [place] [address] Dr. Ashlie Hills Cholesterol in HDL [Mass/Vol] 40 mg/dL Normal 40-60 [facility] Comment on above: Performed By: #### C VDAGS #### [facility] [address] [place] [address] Dr. Ashlie Hills Cholesterol in LDL [Mass/Vol] 81.8 mg/dL Normal [facility] Comment on above: Performed By: #### C VDAGS #### [facility] [address] [place] [address] Dr. Ashlie Hills Cholesterol.total/Gianna sterol in HDL [Mass ratio] 4.0 {ratio} Normal [facility] Comment on above: Performed By: #### C VDAGS #### [facility] [address] [address] [address] Ashlie Hills HDL NORMAL > or = 60 mg/dl - LOW CARDIOVASCULAR RISK <40 mg/dl - HIGH CARDIOVASCULAR RISK Normal [facility] Comment on above: Performed By: #### C VDAGS #### [facility] [address] [address] [address] Ashlie Hills LDL CALC NORMAL SEE BELOW Normal [facility] Comment on above: Result Comment: <100 mg/dl OPTIMAL 100 - 129 mg/dl NEAR OR ABOVE OPTIMAL 130 - 159 mg/dl BORDERLINE HIGH 160 - 189 mg/dl HIGH >190 mg/dl VERY HIGH Performed By: #### C VDAGS #### [facility] [address] [place] [address] Dr. Ashlie Hills Triglyceride [Mass/Vol] 186 mg/dL Critically high <=150 [facility] Comment on above: Performed By: #### C VDAGS #### [facility] [address] [address] [address] Ashlie Hills VLDL CALC 37.2 mg/dL Normal [facility] Comment on above: Performed By: #### C VDAGS #### [facility] [address] [place] [address] Dr. Ashlie Hills RENAL FUNCTION PANELon 03-03 Albumin [Mass/Vol] 3.1 g/dL Critically low 3.4-5.0 [facility] Comment on above: Performed By: #### C BC #### [facility] [address] [place] [address] Dr. Ashlie Hills Calcium [Mass/Vol] 9.2 mg/dL Normal 8.5-10.1 [facility] Comment on above: Performed By: #### C BC #### [facility] [address] [address] [address] Ashlie Hills Chloride [Moles/Vol] 102 mmol/L Normal 98-107 [facility] Comment on above: Performed By: #### C BC #### [facility] [address] [address] [address] Ashlie Hills CO2 [Moles/Vol] 31.9 mmol/L Normal 21.0-32.0 [facility] Comment on above: Performed By: #### C BC #### [facility] [address] [address] [address] Ashlie Hills Creatinine [Mass/Vol] 0.68 mg/dL Normal 0.55-1.02 [facility] Comment on above: Performed By: #### C BC #### [facility] [address] [place] [address] Dr. Ashlie Hills EGFR-AF MALDIVIAN >60 Normal >=60 [facility] Comment on above: Performed By: #### C BC #### [facility] [address] [place] [address] Dr. Ashlie Hills EGFR-NON AF MALDIVIAN >60 Normal >=60 [facility] Comment on above: Performed By: #### C BC #### [facility] [address] [place] [address] Dr. Ashlie Hills Glucose [Mass/Vol] 131 mg/dL Critically high 74-[address] [facility] Comment on above: Performed By: #### C BC #### [facility] [address] [place] [address] Dr. Ashlie Hills Phosphate [Mass/Vol] 4.0 mg/dL Normal 2.6-4.7 [facility] Comment on above: Performed By: #### C BC #### [facility] [address] [place] [address] Dr. Ashlie Hills Potassium [Moles/Vol] 4.0 mmol/L Normal 3.5-5.1 [facility] Comment on above: Performed By: #### C BC #### [facility] [address] [place] [address] Dr. Ashlie Hills Sodium [Moles/Vol] 141 mmol/L Normal 136-145 [facility] Comment on above: Performed By: #### C BC #### [facility] [address] [place] [address] Dr. Ashlie Hills Urea nitrogen [Mass/Vol] 17.0 mg/dL Normal 7.0-18.0 [facility] Comment on above: Performed By: #### C BC #### [facility] [address] [place] [address] Dr. Ashlie Hills UA RANDOM W/MICROSCOPICon BACTERIA NONE SEEN Normal NONE SEEN [facility] Comment on above: Performed By: #### I NFLUAB #### [facility] [address] [place] [address] Dr. Ashlie Hills Bilirubin Ql (U) Negative Normal NEGATIVE [facility] [facility] Comment on above: Performed By: #### I NFLUAB #### [facility] [address] [place] [address] Dr. Ashlie Hills CAST NONE SEEN Normal NONE SEEN [facility] Comment on above: Performed By: #### I NFLUAB #### [facility] [address] [place] [address] Dr. Ashlie Hills Clarity (U) CLEAR Normal CLEAR [facility] Comment on above: Performed By: #### I NFLUAB #### [facility] [address] [place] [address] Dr. Ashlie Hills Color (U) YELLOW Normal YELLOW [facility] Comment on above: Performed By: #### I NFLUAB #### [facility] [address] [place] [address] Dr. Ashlie Hills Crystals LM Nom (Urine sed) NONE SEEN Normal NONE SEEN [facility] Comment on above: Performed By: #### I NFLUAB #### [facility] [address] [place] [address] Dr. Ashlie Hills Epithelial cells LM Ql (Urine sed) FEW Abnormal NONE SEEN /RARE [facility] Comment on above: Performed By: #### I NFLUAB #### [facility] [address] [place] [address] Dr. Ashlie Hills Glucose Ql (U) Negative Normal NEGATIVE [facility] Comment on above: Performed By: #### I NFLUAB #### [facility] [address] [address] [address] Ashlie Hills Hemoglobin Ql (U) Negative Normal NEGATIVE [facility] Comment on above: Performed By: #### I NFLUAB #### [facility] [address] [place] [address] Dr. Ashlie Hills Ketones Ql (U) Negative Normal NEGATIVE [facility] Comment on above: Performed By: #### I NFLUAB #### [facility] [address] [place] [address] Dr. Ashlie Hills LEUKOCYTES Negative Normal NEGATIVE [facility] Comment on above: Performed By: #### I NFLUAB #### [facility] [address] [place] [address] Dr. Ashlie Hills MUCOUS NONE SEEN Normal NONE SEEN [facility] Comment on above: Performed By: #### I NFLUAB #### [facility] [address] [place] [address] Dr. Ashlie Hills Nitrite Ql (U) Negative Normal NEGATIVE [facility] Comment on above: Performed By: #### I NFLUAB #### [facility] [address] [place] [address] Dr. Ashlie Hills pH (U) 5.5 [pH] Normal 5-9 [facility] Comment on above: Performed By: #### I NFLUAB #### [facility] [address] [place] [address] Dr. Ashlie Hills RBC 0-2 Normal 0-2 [facility] Comment on above: Performed By: #### I NFLUAB #### [facility] [address] [place] [address] Dr. Ashlie Hills SPEC GRAVITY >=1.030 Abnormal 1.005-<=1.025 [facility] Comment on above: Performed By: #### I NFLUAB #### [facility] [address] [place] [address] Dr. Ashlie Hills UA PROTEIN 100 mg/dl Abnormal NEGATIVE/ TRACE [facility] Comment on above: Performed By: #### I NFLUAB #### [facility] [address] [place] [address] Dr. Ashlie Hills Urobilinogen Qn (U) 0.2 {Little'U}/dL Normal 0.2 - 1. 0 [facility] Comment on above: Performed By: #### I NFLUAB #### [facility] [address] [place] [address] Dr. Ashlie Hills WBC NONE SEEN Normal NONE SEEN [facility] Comment on above: Performed By: #### I NFLUAB #### [facility] [address] [address] [address] Ashlie Hills URIC ACID SERUMon 03-03-2022 Urate [Mass/Vol] 5.0 mg/dL Normal 2.6-6.0 [facility] Comment on above: Performed By: #### I NFLUAB #### [facility] [address] [place] [address] Dr. Ashlie Hills URINE T PROTEIN CREAT RATIOo n 03-03-2022 Protein (U) [Mass/Vol] 77.9 mg/dL Critically high <=12.0 [facility] Comment on above: Performed By: #### C VDAGS #### [facility] [address] [address] [address] Ashlie Hills UR PROT CREAT RAT 0.44 Normal [facility] Comment on above: Performed By: #### C VDAGS #### [facility] [address] [place] [address] Dr. Ashlie Hills URINE CREAT 175.15 mg/dL Normal 20.00-300.00 [facility] Comment on above: Performed By: #### C VDAGS #### [facility] [address] [address] [address] Ashlie Hills CULTURE URINEon 12-25-2021 CULTURE URINE Culture Observations: GREATER THAN TWO ORGANISMS PRESENT, HEAVILY MIXED. PLEASE RESUBMIT CLEAN CATCH MID-STREAM URINE IF CLINICALLY INDICATED. Normal [facility] Comment on above: Performed By: #### I NFLUAB #### [facility] [address] [place] [address] Dr. Ashlie Hills CBC AUTO DIFFon 12-24-2021 BASO # 0.1 103/ul Normal 0.0-0.1 [facility] Comment on above: Performed By: #### C BC #### [facility] [address] [place] [address] Dr. Ashlie Hills Basophils/100 WBC (Bld) 0.5 % Normal 0.2-2.[address] [facility] Comment on above: Performed By: #### C BC #### [facility] [address] [place] [address] Dr. Ashlie Hills EO # 0.4 103/ul Normal 0.0-0.7 [facility] Comment on above: Performed By: #### C BC #### [facility] [address] [place] [address] Dr. Ashlie Hills Eosinophils/100 WBC (Bld) 2.4 % Normal 0.9-7.0 [facility] Comment on above: Performed By: #### C BC #### [facility] [address] [place] [address] Dr. Ashlie Hills Erythrocyte distribution width (RBC) [Ratio] 14.1 % Normal 11.0-15.0 [facility] Comment on above: Performed By: #### C BC #### [facility] [address] [place] [address] Dr. Ashlie Hills Hematocrit (Bld) [Volume fraction] 55.9 % Critically high 36.0-48.0 [facility] Comment on above: Performed By: #### C BC #### [facility] [address] [place] [address] Dr. Ashlie Hills Hemoglobin (Bld) [Mass/Vol] 17.9 g/dL Critically high 12.0-16.0 [facility] Comment on above: Performed By: #### C BC #### [facility] [address] [place] [address] Dr. Ashlie Hills IG # 0.06 10e3/ul Critically high 0.00-0.03 [facility] Comment on above: Performed By: #### C BC #### [facility] [address] [place] [address] Dr. Ashlie Hills IG % 0.4 % Normal 0.0-0.5 [facility] Comment on above: Performed By: #### C BC #### [facility] [address] [place] [address] Dr. Ashlie Hills LYMPH # 5.8 103/ul Critically high 1.2-3.8 [facility] Comment on above: Performed By: #### C BC #### [facility] [address] [place] [address] Dr. Ashlie Hills Lymphocytes/100 WBC (Bld) 35.4 % Normal 20.5-60.0 [facility] Comment on above: Performed By: #### C BC #### [facility] [address] [place] [address] Dr. Ashlie Hills MANUAL DIFF REQ NO Normal [facility] Comment on above: Performed By: #### C BC #### [facility] [address] [place] [address] Dr. Ashlie Hills MCH (RBC) [Entitic mass] 29.4 pg Normal 26.7-34.0 [facility] Comment on above: Performed By: #### C BC #### [facility] [address] [place] [address] Dr. Ashlie Hills MCHC (RBC) [Mass/Vol] 32.0 g/dL Normal 29.9-35.2 [facility] Comment on above: Performed By: #### C BC #### [facility] [address] [place] [address] Dr. Ashlie Hills MCV (RBC) [Entitic vol] 91.8 fL Normal 81.0-99.[address] [facility] Comment on above: Performed By: #### C BC #### [facility] [address] [place] [address] Dr. Ashlie Hills MONO # 0.8 103/ul Normal 0.3-0.8 [facility] Comment on above: Performed By: #### C BC #### [facility] [address] [place] [address] Dr. Ashlie Hills Monocytes/100 WBC (Bld) 4.8 % Normal 1.7-12.[address] [facility] Comment on above: Performed By: #### C BC #### [facility] [address] [address] [address] Ashlie Hills NEUT # 9.3 103/ul Critically high 1.4-6.5 [facility] Comment on above: Performed By: #### C BC #### [facility] [address] [address] [address] Ashlie Hills Neutrophils/100 WBC (Bld) 56.5 % Normal 43.0-75.0 [facility] Comment on above: Performed By: #### C BC #### [facility] [address] [address] [address] Ashlie Hills Platelet mean volume (Bld) [Entitic vol] 12.9 fL Normal 9.5-13.5 [facility] Comment on above: Performed By: #### C BC #### [facility] [address] [place] [address] Dr. Ashlie Hills PLT 127 103/ul Critically low 150-450 [facility] Comment on above: Performed By: #### C BC #### [facility] [address] [address] [address] Ashlie Hills RBC 6.09 106/ul Critically high 4.20-5.40 [facility] Comment on above: Performed By: #### C BC #### [facility] [address] [place] [address] Dr. Ashlie Hills WBC 16.4 103/ul Critically high 4.0-11.0 [facility] Comment on above: Performed By: #### C BC #### [facility] [address] [place] [address] ABD/PELVIS WO CONon [...] Severe right hip degenerative change. Normal [facility] URINE PROFILEon 2 Bilirubin Ql (U) Negative Normal NEGATIVE [facility] Comment on above: Performed By: #### E RUR, UMICRO #### [facility] [address] [place] [address] Dr. Ashlie Hills Clarity (U) CLEAR Normal CLEAR [facility] Comment on above: Performed By: #### E RUR, UMICRO #### [facility] [address] [place] [address] Dr. Ashlie Hills Color (U) DK. ORANGE Abnormal YELLOW [facility] Comment on above: Performed By: #### E RUR, UMICRO #### [facility] [address] [place] [address] Dr. Ashlie HOBBS A micrscopic examination will be performed if indicated. Normal [facility] Comment on above: Performed By: #### E RUR, UMICRO #### [facility] [address] [place] [address] Dr. Ashlie Hills Glucose Ql (U) 250 mg/dl Abnormal NEGATIVE [facility] Comment on above: Performed By: #### E RUR, UMICRO #### [facility] [address] [place] [address] Dr. Ashlie Hills Hemoglobin Ql (U) Negative Normal NEGATIVE [facility] Comment on above: Performed By: #### E RUR, UMICRO #### [facility] [address] [place] [address] Dr. Ashlie Hills Ketones Ql (U) Negative Normal NEGATIVE [facility] Comment on above: Performed By: #### E RUR, UMICRO #### [facility] [address] [place] [address] Dr. Ashlie Hills LEUKOCYTES Negative Normal NEGATIVE [facility] Comment on above: Performed By: #### E RUR, UMICRO #### [facility] [address] [place] [address] Dr. Ashlie Hills Nitrite Ql (U) Negative Normal NEGATIVE [facility] Comment on above: Performed By: #### E RUR, UMICRO #### [facility] [address] [place] [address] Dr. Ashlie Hills pH (U) 5.0 [pH] Normal 5-9 [facility] Comment on above: Performed By: #### MADELINE DIAZRO #### [facility] [address] [place] [address] Dr. Ashlie Hills Protein (U) [Mass/Vol] 100 mg/dL Abnormal NEGAT YURY/ TRACE [facility] Comment on above: Performed By: #### Tracey LYMAN, UMICRO #### [facility] [address] [place] [address] Dr. Ashlie Hills SPEC GRAVITY >=1.030 Abnormal 1.005-<=1.025 [facility] Comment on above: Performed By: #### Tracey LYMAN, MADELINERO #### [facility] [address] [place] [address] Dr. Ashlie Hills UR MICRO IND INDICATED Normal [facility] Comment on above: Performed By: #### Tracey LYMAN UMHARRIETRO #### [facility] [address] [place] [address] Dr. Ashlie Hills Urobilinogen Qn (U) 1.0 {Little'U}/dL Normal 0.2 - 1. 0 [facility] Comment on above: Performed By: #### Tracey LYMAN, MADELINERO #### [facility] [address] [place] [address] Dr. Ashlie Hills PROF CHEM 8 (BAS METB)on Anion gap [Moles/Vol] 12.1 mmol/L Normal [facility] Comment on above: Performed By: #### I NFLUAB #### [facility] [address] [place] [address] Dr. Ashlie Hills Calcium [Mass/Vol] 9.0 mg/dL Normal 8.5-10.1 [facility] Comment on above: Performed By: #### I NFLUAB #### [facility] [address] [place] [address] Dr. Ashlie Hills Chloride [Moles/Vol] 101 mmol/L Normal 98-107 [facility] Comment on above: Performed By: #### I NFLUAB #### [facility] [address] [address] [address] Ashlie Hills CO2 [Moles/Vol] 29.1 mmol/L Normal 21.0-32.0 [facility] Comment on above: Performed By: #### I NFLUAB #### [facility] [address] [address] [address] Ashlie Hills Creatinine [Mass/Vol] 0.86 mg/dL Normal 0.55-1.02 [facility] Comment on above: Performed By: #### I NFLUAB #### [facility] [address] [place] [address] Dr. Ashlie Hills EGFR-AF MALDIVIAN >60 Normal >=60 [facility] Comment on above: Performed By: #### I NFLUAB #### [facility] [address] [address] [address] Ashlie Hills EGFR-NON AF MALDIVIAN >60 Normal >=60 [facility] Comment on above: Performed By: #### I NFLUAB #### [facility] [address] [address] [address] Ashlie Hills Glucose [Mass/Vol] 236 mg/dL Critically high 74-[address] [facility] Comment on above: Performed By: #### I NFLUAB #### [facility] [address] [address] [address] Ashlie Hills Potassium [Moles/Vol] 4.2 mmol/L Normal 3.5-5.1 [facility] Comment on above: Performed By: #### I NFLUAB #### [facility] [address] [address] [address] Ashlie Hills Sodium [Moles/Vol] 138 mmol/L Normal 136-145 [facility] Comment on above: Performed By: #### I NFLUAB #### [facility] [address] [address] [address] Ashlie Hills Urea nitrogen [Mass/Vol] 11.0 mg/dL Normal 7.0-18.0 [facility] Comment on above: Performed By: #### I NFLUAB #### [facility] [address] [place] [address] Dr. Ashlie Hills Urea nitrogen/Creatinine [Mass ratio] 12.8 mg/mg Normal [facility] Comment on above: Performed By: #### I NFLUAB #### [facility] [address] [place] [address] Dr. Ashlie Hills URINE MICROSCOPIC ONLYon BACTERIA SMALL Abnormal NONE SEEN [facility] Comment on above: Performed By: #### E RUR, UMICRO #### [facility] [address] [place] [address] Dr. Ashlie Hills Bacteria identified Cx Nom (U) INDICATED Normal [facility] Comment on above: Performed By: #### E RUR, UMICRO #### [facility] [address] [place] [address] Dr. Ashlie Hills CAST NONE SEEN Normal NONE SEEN [facility] Comment on above: Performed By: #### E RUR, UMICRO #### [facility] [address] [place] [address] Dr. Ashlie Hills Crystals LM Nom (Urine sed) NONE SEEN Normal NONE SEEN [facility] Comment on above: Performed By: #### E RUR, UMICRO #### [facility] [address] [place] [address] Dr. Ashlie Hills Epithelial cells LM Ql (Urine sed) MODERATE Abnormal NONE SEEN /RARE [facility] Comment on above: Performed By: #### E RUR, UMICRO #### [facility] [address] [place] [address] Dr. Ashlie Hills MUCOUS NONE SEEN Normal NONE SEEN [facility] Comment on above: Performed By: #### E RUR, UMICRO #### [facility] [address] [place] [address] Dr. Ashlie Hills RBC 0-2 Normal 0-2 [facility] Comment on above: Performed By: #### E NUAR, UMICRO #### [facility] [address] [place] [address] Dr. Ashlie Hills WBC 0-2 Abnormal NONE SEEN [facility] Comment on above: Performed By: #### E EVONNE LYMAN #### [facility] [address] [address] [address] Ashlie Hills YEAST PRESENT Abnormal NONE SEEN [facility] Comment on above: Performed By: #### E EVONNE LYMAN #### [facility] [address] [address] [address] Ashlie Hills HIP RIGHT 1 OR 2 VWS WITH PE LVISon 07-20-2020 HIP RIGHT 1 OR 2 VWS WITH PELVIS [facility] Department of Radiology [address] [place] [address] Patient Name: MITZI MACIAS : [...] MRI. Electronically signed: Pipo Acevedo. Transcribed by: [email or web address], User Resident: Electronically Signed by: PIPO ACEVEDO @ 07/20/2020 03:45 PM Normal [facility] Comment on above: Order Comment: evalu ate Vital Signs Date Time Vital Sign Value Performing Clinician Facility 06-19-2024 11:26-0500 Body height 170 cm Jonathan Hudson MD Work Phone: [facility] 06-19-2024 11:26-0500 Body mass index (BMI) [Ratio] 58.7 kg/m2 Jonathan Hudson MD Work Phone: [facility] 06-19-2024 11:26-0500 Body temperature 98.01 [degF] Jonathan Hudson MD Work Phone: [facility] 06-19-2024 11:26-0500 Body weight 169.65 kg Jonathan Hudson MD Work Phone: [facility] 06-19-2024 11:26-0500 Diastolic blood pressure 70 mm[Hg] Jonathan Hudson MD Work Phone: [facility] 06-19-2024 11:26-0500 Heart rate 78 /min Jonathan Hudson MD Work Phone: [facility] 06-19-2024 11:26-0500 Respiratory rate 20 /min Jonathan Hudson MD Work Phone: [facility] 06-19-2024 11:26-0500 Systolic blood pressure 160 mm[Hg] Jonathan Hudson MD Work Phone: [facility] 06-11-2024 10:00-0500 Blood Pressure Location Elbert ARAUZ [facility] 06-11-2024 10:00-0500 Diastolic blood pressure 68 mm[Hg] Elbert ARAUZ [facility] 06-11-2024 10:00-0500 Heart rate 76 /min Elbert ARAUZ [facility] 06-11-2024 10:00-0500 Systolic blood pressure 132 mm[Hg] Elbert ARAUZ [facility] 05-27-2024 10:20-0500 Body height 170.2 cm Rain Souza MD Work Phone: [facility] 05-27-2024 10:20-0500 Body mass index (BMI) [Ratio] 56.7 kg/m2 Rain Souza MD Work Phone: [facility] 05-27-2024 10:20-0500 Body weight 164.2 kg Rain Souza MD Work Phone: [facility] 05-27-2024 10:20-0500 Diastolic blood pressure 66 mm[Hg] Rain Souza MD Work Phone: [facility] 05-27-2024 10:20-0500 Heart rate 72 /min Rain Souza MD Work Phone: [facility] 05-27-2024 10:20-0500 Respiratory rate 16 /min Rain Souza MD Work Phone: [facility] 05-27-2024 10:20-0500 Systolic blood pressure 128 mm[Hg] Rain Souza MD Work Phone: [facility] 04-14-2024 10:27-0400 Body height 165.1 cm Mckayla Blas [employer] Work Phone: [facility] 04-14-2024 10:27-0400 Body mass index (BMI) [Ratio] 61.01 kg/m2 Mckayla Blas [employer] Work Phone: [facility] 04-14-2024 10:27-0400 Body temperature 98.49 [degF] Mckayla Blas [employer] Work Phone: [facility] 04-14-2024 10:27-0400 Body weight 166.29 kg Mckayla Blas [employer] Work Phone: [facility] 04-14-2024 10:27-0400 Diastolic blood pressure 80 mm[Hg] Mckayla Blas [employer] Work Phone: [facility] 04-14-2024 10:27-0400 Heart rate 77 /min Mckayla Blas [employer] Work Phone: [facility] 04-14-2024 10:27-0400 Respiratory rate 19 /min Mckayla Blas [employer] Work Phone: [facility] 04-14-2024 10:27-0400 SaO2% (BldA) [Mass fraction] 92 % Mckayla Blas [employer] Work Phone: [facility] 04-14-2024 10:27-0400 Systolic blood pressure 116 mm[Hg] Mckayla Blas [employer] Work Phone: [facility] 03-08-2022 15:00-0400 Body height 170.18 cm Stephanie Tico Other [employer] Other 03-08-2022 15:00-0400 Body temperature 97.6 [degF] Stephanie Tico Other [employer] Other 03-08-2022 15:00-0400 Diastolic blood pressure 72 mm[Hg] Stephanie Tico Other [employer] Other 03-08-2022 15:00-0400 Respiratory rate 20 /min Stephanie Tico Other [employer] Other 03-08-2022 15:00-0400 SaO2% (BldA) [Mass fraction] 91 % Stephanie Tico Other [employer] Other 03-08-2022 15:00-0400 Systolic blood pressure 131 mm[Hg] Stephanie Tico Other [employer] Other 02-20-2022 09:20-0400 Body height 170.18 cm Stephanie Tico Other [employer] Other 02-20-2022 09:20-0400 Body temperature 96.5 [degF] Stephanie Tico Other [employer] Other 02-20-2022 09:20-0400 Diastolic blood pressure 69 mm[Hg] Stephanie Tico Other [employer] Other 02-20-2022 09:20-0400 Respiratory rate 20 /min Stephanie Tico Other [employer] Other 02-20-2022 09:20-0400 SaO2% (BldA) [Mass fraction] 91 % Stephanie Tico Other [employer] Other 02-20-2022 09:20-0400 Systolic blood pressure 129 mm[Hg] Stephanie Tico Other [employer] Other 02-06-2022 10:24-0400 Blood Pressure Location Elbert ARAUZ [facility] 02-06-2022 10:24-0400 Diastolic blood pressure 76 mm[Hg] Elbert ARAUZ [facility] 02-06-2022 10:24-0400 Heart rate 70 /min Elbert ARAUZ [facility] 02-06-2022 10:24-0400 Respiratory rate 16 /min Elbert ARAUZ [facility] 02-06-2022 10:24-0400 Systolic blood pressure 134 mm[Hg] Elbert ARAUZ [facility] Encounters Encounter Date Encounter Type Care Provider Facility Start: 08-08-2024 End: 08-08-2024 ambulatory [facility] Start: 07-17-2024 End: 07-17-2024 Refill Mckayla Blas [employer] Work Phone: [facility] Start: 07-14-2024 End: 07-14-2024 Office outpatient visit 25 minutes Mckayla Blas [employer] Work Phone: [facility] Comment on [...] Work Phone: [facility] Comment on above: Bilateral lower extr emity edema Start: 06-19-2024 End: 06-19-2024 Office outpatient new 45 minutes Jonathan Hudson MD Work Phone: [facility] Comment on above: BMI 50.0-59.9, adult (CMS-HCC) (Primary Dx); Morbid obesity (CMS-HCC); Smoking Start: 06-13-2024 End: 06-13-2024 Telephone encounter Jonathan Hudson MD Work Phone: [facility] Start: 06-11-2024 ambulatory Elbert ARAUZ Facili ty:[facility] Start: 06-11-2024 End: 06-11-2024 Patient encounter procedure Elbert ARAUZ [facility] [place] Start: 05-27-2024 End: 05-27-2024 Bamboo flowsheet Rain Souza MD Work Phone: [facility] Start: 05-27-2024 End: 05-27-2024 Bamboo flowsheet Rain Souza MD Work Phone: [facility] Start: 05-27-2024 End: 05-27-2024 ambulatory RAIN SOUZA Not Available Start: 05-27-2024 End: 05-27-2024 Office outpatient visit 25 minutes Rain Souza MD Work Phone: [facility] Comment on above: Type 2 diabetes [...] 04-14-2024 End: 04-14-2024 Bamboo flowsheet Mckayla Blas [employer] MACHINIST Work Phone: [facility] Start: 04-14-2024 End: 04-14-2024 Bamboo flowsheet Mckayla Blas [employer]OTHERM[employer] HE[employer] MACHINIST Work Phone: [facility] Start: 04-14-2024 End: 04-14-2024 Office outpatient visit 25 minutes Mckayla Blas [employer]OTHERM[employer] HE[employer] MACHINIST Work Phone: [facility] Comment on above: Primary hypertension (CMS/HCC) (Primary [...] unspecified (CMS/HCC); Pulmonary emphysema, unspecified emphysema type (CMS/[facility]); Bilateral lower extremity edema; Tobacco user; Hyperpigmentation of skin Start: 04-14-2024 End: 04-14-2024 ambulatory MCKAYLA AICHHOLZ Not Available Start: 04-05-2024 End: 04-06-2024 Refill Mckayla Wan [employer] MACHINIST Work Phone: [facility] Comment on above: Hyperlipidemia, unsp ecified (CMS/HCC); Bilateral lower extremity edema Vitamin D deficiency , unspecified Start: 01-17-2024 Patient encounter procedure Rain Souza MD Work Phone: [facility] Start: 01-17-2024 End: 01-17-2024 ambulatory MCKAYLA AICHHOLZ Not Available Start: 11-15-2023 End: 11-15-2023 ambulatory MCKAYLA AICHHOLZ Not Available Start: 11-14-2023 End: 11-14-2023 ambulatory [facility] Start: 11-01-2023 End: 11-01-2023 ambulatory MCKAYLA AICHHOLZ Not Available Start: 09-27-2023 End: 09-27-2023 ambulatory MCKAYLA AICHHOLZ Not Available Start: 08-17-2023 Refill Mckayla Aichholz [employer] MACHINIST Work Phone: [facility] Comment on above: Vaginal yeast infect ion (Primary Dx) Start: 08-14-2023 Refill Mckayla Aichholz [employer]OTHER[employer] MACHINIST Work Phone: [facility] Comment on above: Type 2 diabetes asiya itus with unspecified complications ([facility]); Edema, unspecified; Edema Start: 12-05-2022 ambulatory NARENDRANATH LAKSHMIPATHY . Facility:[facility] Start: 12-05-2022 End: 12-06-2022 Evaluation and management of inpatient UMBERTO ALONDRA . Facility:[facility] Start: 11-23-2022 End: 11-23-2022 ambulatory DIRECTOR OF FINANCE MCKAYLA AICHHOLZ Facility:[facility] Start: 11-22-2022 End: 11-23-2022 ambulatory DIRECTOR OF FINANCE MCKAYLA AICHHOLZ Facility:[facility] Start: 11-17-2022 End: 11-18-2022 ambulatory SUBHASH GASPAR . Facility:[facility] Start: 11-15-2022 End: 11-15-2022 Patient encounter procedure SARAH VEGA [facility] Start: 10-05-2022 End: 10-05-2022 ambulatory MARIANO LOZANO . Facility:[facility] Start: 09-21-2022 End: 09-21-2022 ambulatory DIRECTOR OF FINANCE MCKAYLA AICHHOLZ Facility:[facility] Start: 09-14-2022 ambulatory RAFAEL [...] 03-08-2022 End: 03-08-2022 ambulatory Stephanie Tico Other [employer] Other Start: 03-08-2022 Office outpatient vi sit 15 minutes Stephanie Tico [facility] Start: 03-03-2022 End: 03-04-2022 ambulatory DIRECTOR OF FINANCE MCKAYLA WAN Facility:[facility] Start: 02-20-2022 End: 02-20-2022 ambulatory Stephanie Tico Other [employer] Other Start: 02-20-2022 Office outpatient ne w 45 minutes Stephanie Tico [facility] Start: 02-06-2022 End: 02-06-2022 Patient encounter procedure Elbert ARAUZ [facility] Start: 01-19-2022 End: 01-20-2022 ambulatory GIL VALENZUELA . Facility:[facility] Start: 12-24-2021 End: 12-24-2021 ambulatory OLE RAMIREZ Facility:[facility] Start: 08-26-2020 End: 09-10-2020 Patient encounter procedure VITHAL SHENDGE Facility:[facility] Start: 05-28-2020 Patient encounter status Robin Hudson MD [facility] Work Phone: Start: 10-30-2019 End: 10-30-2019 Emergency department patient visit JAMES Reis [facility] Start: 10-30-2019 End: 10-30-2019 Emergency department patient visit James Benavidez [facility] Start: 11-02-2016 Preoperative state Stephanie Tico Other [employer] Other Procedures Date Procedure Procedure Detail Performing Clinician Start: 05-27-2024 Gluc bld gluc mntr d ev cleared fda spec home use Rain Souza MD Work Phone: Start: 05-12-2024 [facility]ATIN[facility] Generic External Data Provider Start: 12-14-2023 Mammography Rain urena MD Work Phone: Start: 11-22-2022 Mammography Mckayla clifford NP Work Phone: Start: 10-08-2015 Microscopic observat ion [Identifier] in Cervix by Cyto stain Mckayla Blas [employer] MACHINIST Work Phone: H/O: hysterectomy Elbert LARA Laparoscopic cholecystectomy Elbert ARAUZ Operative procedure on foot Elbert ARAUZ Plan of Treatment Date Care Activity Detail Author Start: 08-03-2025 Screening for malign ant neoplasm of colon [facility] Start: 07-14-2025 Glaucoma screening Diabetes: R etinopathy Screening [facility] Start: 05-13-2025 Glaucoma screening Diabetes: R etinopathy Screening [facility] Start: 01-16-2025 Medicare Annual Well ness (AWV) Medicare Annual Wellness (AWV) [facility] Start: 12-13-2024 Screening for malign ant neoplasm of breast Mammogram [facility] Start: 11-11-2024 Urine screening for protein Diabetes: Urine Protein Screening [facility] Start: 08-27-2024 End: 08-27-2024 Patient encounter procedure 08/27/2024 5:30 PM EST Office Visit [facility] [address] [place] [address] Mckayla Blas, [employer] MACHINIST [address] [place] [address] [facility] Start: 08-27-2024 Hemoglobin A1c measurement Diabetes: Hemoglobin A1C [facility] Start: 08-26-2024 End: 08-26-2024 Patient encounter procedure 08/26/2024 10:30 AM EST Office Visit [facility] [address] [place] [address] Rain Souza MD [address] [place] [address] [facility] Start: 07-14-2024 End: 07-14-2024 Patient encounter procedure 07/14/2024 6:30 PM EST Office Visit [facility] [address] [place] [address] Mckayla Blas, [employer] MACHINIST [address] [place] [address] [facility] Start: 07-14-2024 End: 07-14-2024 Patient encounter procedure 07/14/2024 10:10 AM EST Office Visit [facility] [address] [place] [address] Rain Souza MD [address] [place] [address] [facility] Start: 06-19-2024 End: 06-19-2024 Patient encounter procedure 06/19/2024 11:10 AM EST Office Visit [facility] [address] [place] [phone] Jonathan Hudson MD [address], [address] [address] [facility] Start: 06-06-2024 Influenza vaccination Influenza Vacc ine (#1) [facility] Comment on above: Postponed from 03/09 (Patient Refused) Start: 05-27-2024 End: 05-27-2024 Patient encounter procedure 05/27/2024 9:50 AM EST Office Visit [facility] [address] [place] [address] Rain Souza MD [address] [place] [address] [facility] Start: 05-17-2024 Hemoglobin A1c measurement Diabetes: Hemoglobin A1C [facility] Start: 05-15-2024 End: 05-15-2024 Chart abstracting 05/15/2024 Abstract [facility] [address] [place] [address] Rain Souza MD [address] [place] [address] [facility] Start: 05-15-2024 End: 05-15-2024 Patient encounter procedure 05/15/2024 11:20 AM EST Office Visit [facility] [address] [place] [address] Rain Souza MD [address] [place] [address] [facility] Start: 04-17-2024 End: 04-17-2024 Patient encounter procedure 04/17/2024 3:40 PM EDT Office Visit [facility] [address] [place] [address] Mckayla Blas, SILVANO [address] [place] [phone] [facility] Start: 04-14-2024 End: 04-14-2024 Patient encounter procedure 04/14/2024 11:00 AM EDT Office Visit [facility] [address] [place] [address] Mckayla Blas, SILVANO [address] [place] [phone] Arrived [facility] Comment on above: Arrived Start: 03-09-2024 COVID-19 Vaccine ( season) COVID-19 Vaccine () [facility] Start: 03-09-2024 Influenza vaccination [facility] Start: 02-19-2024 Hemoglobin A1c measurement Diabetes: Hemoglobin A1C [facility] Start: 11-24-2023 Urine screening for protein Diabetes: Urine Protein Screening [facility] Start: 11-23-2023 Screening for malign ant neoplasm of breast Mammogram [facility] Start: 10-15-2023 End: 10-15-2023 Patient encounter procedure 10/15/2023 4:30 PM EDT Office Visit [facility] [address] [place] [address] Mckayla Blas, SILVANO [address] [place] [address] [facility] Start: 08-09-2023 Hemoglobin A1c measurement Diabetes: Hemoglobin A1C [facility] Start: 05-27-2021 Glaucoma screening Diabetes: R etinopathy Screening [facility] Start: 2020 Administration of varicella zoster vaccine Zoster (Shingles) Vaccine (1 of 2) [facility] Start: 03-09-2020 Influenza vaccination Flu vacc ine (Season Ended) [place], [place] Start: 10-07-2018 Screening for malign ant neoplasm of cervix [facility] Start: 2010 Lipid panel Lipid screen Shantelle Camacho [place], [place] Start: 2000 Screening for malign ant neoplasm of cervix HPV/Cotest [facility] Start: 1991 Screening for malign ant neoplasm of cervix [facility] Start: 1989 DTaP,Tdap and Td Vaccines (1 - Tdap) DTaP,Tdap and Td Vaccines (1 - Tdap) [facility] Start: 1989 DTaP/Tdap/Td vaccine (1 - Tdap) DTaP/Tdap/Td vaccine (1 - Tdap) [place], [place] Start: 1988 Adult BMI Follow Up Plan Adult BMI Follow Up Plan [facility] Start: 1988 Adult BMI Screening Adult BMI Screen ing [facility] Start: 1985 HIV screening HIV screen Shantelle Alvarado [place], [place] Start: 1982 Depression Screening Depression Scre ening [facility] Start: 1982 Tobacco Screening Tobacco Screening [facility] Start: 1970 Medicare Annual Well ness (AWV) Medicare Annual Wellness (AWV) [facility] Start: 1970 Screening for malign ant neoplasm of colon [facility] Immunizations Immunization Date Immunization Notes Care Provider Fa [facility] 05-18-2023 influenza, injectabl e, quadrivalent, contains preservative Mckayla Blas NP Work Phone: [facility] 05-18-2023 influenza virus vacc ine, unspecified formulation Rain Souza MD Work Phone: [facility] 07-19-2021 SARS-CoV-2 (COVID-19 ) mRNA BNT-162b2 audrey VEGA [facility] 10-28-2020 SARS-CoV-2 (COVID-19 ) mRNA BNT-162b2 audrey VEGA [facility] 10-08-2020 SARS-CoV-2 (COVID-19 ) mRNA BNT-162b2 vax SARAH VEGA [facility] 04-16-2017 influenza virus vacc ine, H5N1, A/ (national stockpile) Mckayla Blas [employer] MACHINIST Work Phone: [facility] 04-16-2017 influenza virus vacc ine, unspecified formulation Rain Souza MD Work Phone: [facility] 04-16-2017 influenza, unspecifi ed formulation Elbert ARAUZ [facility] 04-16-2017 pneumococcal polysaccharide vaccine, 23 valent Rain Souza MD Work Phone: [facility] 05-10-2016 influenza virus vacc ine, H5N1, A/ (national stockpile) Mckayla Blas [employer]OTHER[employer] MACHINIST Work Phone: [facility] 05-10-2016 influenza virus vacc ine, unspecified formulation Rain Souza MD Work Phone: [facility] 05-10-2016 influenza, unspecifi ed formulation Elbert ARAUZ [facility] 05-02-2013 influenza virus vacc ine, whole virus Rain Souza MD Work Phone: [facility] 05-02-2013 influenza, injectabl e, quadrivalent, contains preservative Mckayla Blas NP Work Phone: [facility] 05-02-2013 influenza, whole Elbert ARAMBULA [facility] 01-29-1998 measles, mumps and rubella virus vaccine Rain Souza MD Work Phone: [facility] Payers Date Payer Category Payer Medicare (Managed Care) [employer] [id number] 2023 Private Health Insurance [facility] [id number] 2023-Present [address] [address] [place] [address] [id number] 2023 Medicare [id number] 2023 Private Health Insurance [id number] 2018 Medicaid [id number] 2017 Medicare [id number]. [id number] 2017 Medicare O [employer] MEDICARE [id number] 1970 Unknown [id number] 2.16.840.1.397014.3.579. 2.647 1970 Unknown [id number] 2.16.840.1.740991.3.579. 2.593 1970 Unknown [id number] 2.16.840.1.096973.3.579. 2.593 1970 Unknown [id number] 2.16.840.1.851957.3.579. 2.593 1970 Unknown [id number] 2.16.840.1.119077.3.579. 2.593 1970 Unknown [id number] 2.16.840.1.201053.3.579. 2.593 1970 Unknown [id number] 2.16.840.1.140331.3.579. 2.593 1970 Unknown [id number] 2.16.840.1.760757.3.579. 2.593 1970 Unknown [id number] 2.16.840.1.379829.3.579. 2.593 1970 Unknown [id number] 2.16.840.1.027554.3.579. 2.593 1970 Unknown [id number] 2.16.840.1.626989.3.579. 2.593 1970 Unknown [id number] 2.16.840.1.146210.3.579. 2.593 1970 Unknown [id number] 2.16.840.1.263159.3.579. 2.593 1970 Unknown [id number] 2.16.840.1.958397.3.579. 2.593 1970 Unknown [id number] 2.16.840.1.399283.3.579. 2.593 1970 Unknown [id number] 2.16.840.1.725412.3.579. 2.593 1970 Unknown [id number] 2.16.840.1.836733.3.579. 2.593 1970 Unknown [id number] 2.16.840.1.963139.3.579. 2.593 1970 Unknown [id number] 2.16.840.1.382822.3.579. 2.593 1970 Unknown [id number] 2.16.840.1.199817.3.579. 2.593 1970 Unknown [id number] 2.16.840.1.117142.3.579. 2.593 1970 Unknown [id number] 2.16.840.1.427516.3.579. 2.593 1970 Unknown [id number] 2.16.840.1.806483.3.579. 2.593 1970 Unknown [id number] 2.840.1.353832.3.579. 2.727 1970 Unknown [id number] .840.1.002571.3.579. 2.727 1970 Unknown [id number] 2.840.1.647417.3.579. 2.1259 1970 Unknown [id number] 2.840.1.026201.3.579. 2.1259 1970 Unknown [id number] 2.840.1.911345.3.579. 2.1259 1970 Unknown [id number] 2.840.1.738751.3.579. 2.1259 1970 Unknown [id number] 2.16840.1.317817.3.579. 2.1259 1970 Unknown [id number] 2.16840.1.030292.3.579. 2.1259 1970 Unknown [id number] 2.16840.1.101295.3.579. 2.1259 1959 Medicaid [id number] 1959 Private Health Insurance [id number] 1959 Unknown [id number] ..840.1.918483.19 Social History Date Type Detail Facility Start: 02-17-2014 End: 07-10-2023 Tobacco smoking status NHIS Current every day smoker [place], [place] Start: 02-17-1994 History of tobacco use Cigarette Smo ker [place] Start: 02-17-2014 End: 07-10-2023 Cigarettes smoked current (pack per day) - Reported [place] Start: 02-17-2014 End: 09-16-2020 Alcohol intake Current drinker of alcohol (finding) [place] Start: 02-17-2014 Alcohol Comment Rare Shantelle Monteiro [place], [place] Start: 1970 Sex Assigned At Not on file M [place], [place] Exposure to SARS-CoV -2 (event) Unable to assess [place] Start: 02-06-2022 Tobacco smoking status Smoker (findi ng) [facility] Start: 07-10-2023 End: 01-17-2024 Sex Assigned At Female [facility] Start: 11-15-2022 End: 06-11-2024 Tobacco smoking status Heavy tobacco smoker (finding) [facility] Start: 09-25-2018 End: 07-10-2023 Tobacco use and exposure Smokeless tobacco non-user [facility] Start: 07-10-2023 End: 07-14-2024 Alcohol intake Lifetime non-drinker (finding) [facility] Within the last year , have you been afraid of your partner or ex-partner? No [facility] Do you belong to any clubs or organizations such as adventist groups, unions, fraternal or athletic groups, or [...] [facility] Start: 09-25-2018 [facility] [employer] [facility] Start: 02-11-2015 Sex Female (finding) [facility] Medical Equipment Procedure Code Equipment Code Equipment Origin al Text Equipment Identifier Dates [id number] Start: 01-18-2024 USE TO TEST BLOO D SUGAR 4 TIMES DAILY [id number] Start: 07-07-2024 Functional Status Date Assessment Result Facility 06-11-2024 Functional Status N/A [facility] 11-15-2022 Functional Status N/A [facility] 02-06-2022 Functional Status N/A [facility] Clinical Notes 01-19-2022 to 08-08-2024 Mckayla Blas, [employer] MACHINIST - 07/14/2024 7:36 PM ESTMckayla Blas, GEOTHERM[employer] HEAT PUMP MACHINIST - 07/14/2024 7:33 PM Ed Blas NP - 07/14/2024 7:32 PM ESTMckayla Blas, GEOTHERM[employer] HE[employer] PU[employer] MACHINIST - 07/14/2024 7:31 PM EST Note Date & Type Note Facility 08-08-2024 Note [place] [facility] Subjective Mitzi Macias is [...] syndrome (CMS/HCC) Decreased functional mobility Diabetic neuropathy ([facility]/HCC) Easy bruising GERD (gastroesophageal reflux disease) Gout Headache Hyperlipidemia Hypertension Insomnia Kidney stone Left flank pain Mixed incontinence Class 3 severe obesity with serious comorbidity and body mass index (BMI) of 50.0 to 59.9 in adult ([facility]/HCC) Non-seasonal allergic rhinitis Obstructive sleep apnea Other chronic pain PAD (peripheral artery disease) ([facility]) Pneumonia Encounter for screening mammogram for malignant neoplasm of breast Pulmonary hypertension ([facility]/HCC) Radiculopathy, lumbar region Current smoker Type 2 diabetes mellitus with complication, with long-term current use of insulin ([facility]/HCC) Unilateral primary osteoarthritis, right hip Vaginal yeast infection Venous insufficiency Bad odor of urine Critical limb ischemia of right lower extremity ([facility]/HCC) Hyperpigmentation of skin 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 2 diabetes mellitus ([facility]/HCC) Myelolipoma of adrenal gland Venous ulcer of right leg ([facility]) HPI Patient was has history of chronic [...] Diagnosis Date COPD (chronic obstructive pulmonary disease) ([facility]/HCC) Diabetes mellitus ([facility]) Hyperlipidemia Hypertension Sleep apnea Past Surgical History: [...] , Rfl: ergocalciferol (Vitamin D-2) 1.25 MG (35299 Units) capsule, Take 1.25 mg by mouth., [...] and at bedtime., Disp: , Rfl: HYDROcodone-acetaminophen ([place]) 5-325 mg tablet, TAKE 1 TABLET BY [...] TWICE DAILY, Disp: (more content not included)... [facility] 07-14-2024 History of Present illness Narrative Associated [...] or chew. ergocalciferol (Vitamin D2) 1.25 MG (72022 UT) capsule TAKE 1 CAPSULE BY MOUTH ONE TIME PER WEEK furosemide (LASIX) 40 mg, Oral, Daily furosemide (LASIX) 20 mg, Oral, Daily PRN, Take in the afternoon as needed hydrALAZINE (APRESOLINE) 25 mg, Oral, 2 times daily HYDROcodone-acetaminophen ([place]) 5-325 MG tablet 1 tablet, 3 times [...] CT Albuminuria 09/17/2023 Angiomyolipoma Anxiety and depression ([facility]) 07/10/2023 Asthma ([facility]) 07/10/2023 Body mass index (BMI) 50.0-59.9, adult ([facility]) Cellulitis of left lower extremity Cervical cancer ([facility]) 09/17/2023 Chronic pain of both knees 09/17/2023 COPD (chronic obstructive pulmonary disease) ([facility]) 07/10/2023 COPD exacerbation ([facility]) 09/17/2023 Decreased functional mobility 09/17/2023 Diabetic neuropathy ([facility]) 07/10/2023 Dietary counseling and surveillance Edema 07/10/2023 Elevated sed rate Elevated WBC count Essential (primary) hypertension ([facility]) GERD (gastroesophageal reflux disease) 09/17/2023 Hyperlipidemia ([facility]) 09/17/2023 Hypertension ([facility]) 07/10/2023 Insomnia 09/17/2023 detention (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 ([facility]) Lower extremity edema 09/17/2023 Mixed hyperlipidemia ([facility]) Morbid (severe) obesity due to excess calories ([facility]) Obstructive sleep apnea 07/10/2023 PAD (peripheral artery disease) ([facility]) 09/17/2023 Pancreatitis 09/17/2023 Pneumonia 09/17/2023 Proteinuria, unspecified Pulmonary hypertension ([facility]) 09/17/2023 Radiculopathy, lumbar region 09/17/2023 Tobacco user 09/17/2023 Type 2 diabetes mellitus with complication, with long-term current use of insulin ([facility]) 07/10/2023 Unilateral primary osteoarthritis, right hip 09/17/2023 [...] List Items Addressed This Visit Diabetic neuropathy ([facility]) Continue with tristan EAST reviewed Fu in 3 months COPD (chronic obstructive pulmonary disease) ([facility]) Stable at this time, no changes in meds Encouraged smoking cessation Cont with dr Yañez Hypertension ([facility] [facility]) - Primary Please check blood pressure daily and record DASH diet Limit caffeine Take medication as directed Contact office if chest pain, pressure, dizziness, shortness of breath, swelling legs Recommend slow position changes Current meds: hydralazine, lisinopril, Type 2 diabetes mellitus with complication, with long-term current use of insulin ([facility]) Check blood sugars daily, notify if <70 [...] take over prescribing PAD (peripheral artery disease) ([facility]) Asa, statin Quit smoking BP and DM [...] of the risks of continued smoking: stroke, CA, all forms of cancer, lung disease, and [...] 1 cm to 4 cm in diameter ([facility]) Continue with Urology Kidney stone Continue with Urology Non-seasonal allergic rhinitis Relevant Medications cetirizine (ZyrTEC) 10 MG tablet Critical limb ischemia of right lower extremity ([facility]) Saw vascular, does have narrowing in arteries in legs, and thus the wounds not healing At this point they strongly urge to quit smoking or risk limb amputation Cont asa and statin Also good blood pressure and sugar control Venous ulcer of right leg ([facility]) Encounter for smoking cessation counseling Relevant Medications nicotine (Nicoderm, Step 1) 21 MG/24HR patch Other Visit Diagnoses Type 2 diabetes mellitus with unspecified complications ([facility]) Quitting smokinppd, chantix not helped, ] Face time with pt, spent 15 minutes with pt Associated Problem(s): Tobacco user The patient has been advised of the risks of continued smoking: stroke, CA, all forms of cancer, lung disease, and [...] complication, with long-term current use of insulin ([facility]) Check blood sugars daily, notify if <70 [...] in 3 months documented in this encounter [facility] 06-19-2024 Evaluation + Plan note Associated Problem(s): Venous ulcer of right leg (CMS-HCC) Continue wound care. We will get venous reflux ultrasound. [facility] 06-19-2024 Evaluation + Plan note Associated Problem(s): Smoking Counseled on smoking cessation for at least 3 minutes. She is willing to quit. [facility] 06-19-2024 Miscellaneous Notes Associated Problem(s): Venous ulcer of right leg (CMS-HCC) Continue wound care. We will get venous reflux ultrasound. Associated Problem(s): Smoking Counseled on smoking cessation for at least 3 minutes. She is willing to quit. Associated Problem(s): Critical limb ischemia of right lower extremity (CMS-HCC) We will get PVR and CTA with runoff documented in this encounter [facility] 06-19-2024 Evaluation + Plan note Associated Problem(s): Critical limb ischemia of right lower extremity (CMS-HCC) We will get PVR and CTA with runoff [facility] 06-19-2024 History of Present illness Narrative Images from the original note were not included. To: MCKAYLA BLAS, CHAPERONE-DIRECTOR OF FINANCE HPI: Mitzi Macias is a 53 y.o. [...] COPD (chronic obstructive pulmonary disease) ([facility] Depression Diabetes mellitus ([facility]) Diabetes mellitus with neuropathy ([facility]) Edema GERD (gastroesophageal reflux disease) Hypertension Morbid obesity ([facility]) Morbid obesity ([facility]) Pneumonia Past Surgical History: Past Surgical History: [...] Resource Strain: Low Risk (07/10/2023) Received from [facility] Overall Financial Resource Strain (CARDIA) Difficulty of Paying Living Expenses: Not hard at all Food Insecurity: No Food Insecurity (07/10/2023) Received from [facility] Hunger Vital Sign Worried About Running Out of Food in the Last Year: Never true Ran Out of Food in the Last Year: Never true Transportation Needs: No Transportation Needs (07/10/2023) Received from [facility] PRAPARE - Transportation Lack of Transportation (Medical): No Lack of Transportation (Non-Medical): No Physical Activity: Insufficiently Active (07/10/2023) Received from [facility] Exercise Vital Sign Days of Exercise per Week: 7 days Minutes of Exercise per Session: 10 min Stress: No Stress Concern Present (07/10/2023) Received from [facility] [place] [facility] [employer] - Occupational Stress Questionnaire Feeling of Stress : Only a little Social Connections: Socially Integrated (07/10/2023) Received from [facility] Social Connection and Isolation Panel [NHANES] Frequency of Communication with Friends and Family: Twice a week Frequency of Social Gatherings with Friends and Family: Twice a week Attends [employer] Services: 1 to 4 times per year Active Member of Clubs or Organizations: Yes Attends Club or Organization Meetings: 1 to 4 times per year Marital Status: Interpersonal Safety: Not At Risk (07/10/2023) Received from [facility] Humiliation, Afraid, Rape, and Kick questionnaire Fear of Current or Ex-Partner: No Emotionally Abused: No Physically Abused: No Sexually Abused: No Housing Instability: Unknown (07/10/2023) Received from [facility] Housing Stability Vital Sign Unable to [...] and Plan: Problem List BMI 50.0-59.9, adult ([facility]) - Primary Smoking Current Assessment & Plan Counseled on smoking cessation for at least 3 minutes. She is willing to quit. Morbid obesity (CMS-HCC) Mitzi was seen today for non-par with [facility] dual complete without oon benefits- need i. Diagnoses and all orders for this visit: BMI 50.0-59.9, adult ([facility]) Morbid obesity ([facility]) Smoking Jonathan Hudson MD, SOPHIE, RPVI, FSVS, FACS [facility] This note was created with the assistance of a speech recognition program. While intending to generate a timely document that accurately reflects the content of the visit, no guarantee can be provided that every grammatical or spelling mistake has been or will be identified or corrected. Thank you for your understanding. documented in this encounter [facility] 06-13-2024 Miscellaneous Notes LMVM for patient to bring insurance card to appt so we can see if we are able to see her or she can be proactive and call her insurance before her appt to make sure we are either in network or that she has out of network benefit. documented in this encounter [facility] 06-13-2024 Telephone encounter Note LMVM for patient to bring insurance card to appt so we can see if we are able to see her or she can be proactive and call her insurance before her appt to make sure we are either in network or that she has out of network benefit. [facility] 06-11-2024 Hospital Discharge instructions Patient Education 06/11/2024 [...] require a prescription. You can also purchase uoyi-dyf-plamgbz medicines. Medicines may have nicotine in them [...] and encouragement. Call telephone quitlines, such as 4-849-ATVN-NOW, reach out to support groups, or work [...] provider. Document Revised: 06/16/2022 Document Reviewed: 06/16/2022 [employer] Patient Education 2023 [employer]. 06/11/2024 10:39:22 Dietary Guidelines to Help Prevent [...] include: ?8 oz (237 mL) of milk, ddqcppb-hhvvwfuvumqr-sgogd milk, and calcium-fortifiedfruit juice. Calcium-fortified means that [...] potatoes, and Ethiopian chard. ?Peanuts. ?Potato chips, guatemalan fries, and baked potatoes with skin on. ?Nuts and nut products. ?Chocolate. If you regularly take a diuretic medicine, make sure to eat at least 1 or 2 servings of fruits or vegetables that are high in potassium each day. These include: ?Avocado. ?Banana. ?[place], prune, carrot, or tomato juice. ?Baked potato. [...] magnesium, fish oil, or vitamin B6. Take sajk-pjw-cwfdoaq and prescription medicines only as told by [...] Casseroles. Pizza. Lasagna. Frozen meals. Potato chips. Micronesian fries. The items listed above may not [...] provider. Document Revised: 10/05/2022 Document Reviewed: 10/05/2022 [employer] Patient Education 2023 [employer]. Follow Up Care 05/06/2024 08:24:56 With:REGLA PHIPPS, Elbert Joya, URL Address: [facility] [address], [place] [address]- When: Unknown [facility] 05-27-2024 History of Present illness Narrative Mitzi [...] or chew. ergocalciferol (Vitamin D2) 1.25 MG (89157 UT) capsule TAKE 1 CAPSULE BY MOUTH ONE TIME PER WEEK furosemide (LASIX) 20 mg, Oral, Daily PRN, Take in the afternoon as needed furosemide (LASIX) 40 mg, Oral, Daily Glucose Blood (ACCU-CHEK JAQUI PLUS ) 4 times daily hydrALAZINE (APRESOLINE) 25 mg, Oral, 2 times daily HYDROcodone-acetaminophen ([place]) 5-325 MG tablet 1 tablet, 3 times [...] CT Albuminuria 09/17/2023 Angiomyolipoma Anxiety and depression ([facility]) 07/10/2023 Asthma ([facility]) 07/10/2023 Body mass index (BMI) 50.0-59.9, adult ([facility]) Cellulitis of left lower extremity Cervical cancer ([facility]) 09/17/2023 Chronic pain of both knees 09/17/2023 COPD (chronic obstructive pulmonary disease) ([facility]) 07/10/2023 COPD exacerbation ([facility]) 09/17/2023 Decreased functional mobility 09/17/2023 Diabetic neuropathy ([facility]) 07/10/2023 Dietary counseling and surveillance Edema 07/10/2023 Elevated sed rate Elevated WBC count GERD (gastroesophageal reflux disease) 09/17/2023 Hyperlipidemia ([facility]) 09/17/2023 Hypertension ([facility]) 07/10/2023 Insomnia 09/17/2023 detention (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 ([facility]) Lower extremity edema 09/17/2023 Morbid (severe) obesity due to excess calories ([facility]) Obstructive sleep apnea 07/10/2023 PAD (peripheral artery disease) ([facility]) 09/17/2023 Pancreatitis 09/17/2023 Pneumonia 09/17/2023 Proteinuria, unspecified Pulmonary hypertension ([facility]) 09/17/2023 Radiculopathy, lumbar region 09/17/2023 Tobacco user 09/17/2023 Type 2 diabetes mellitus with complication, with long-term current use of insulin ([facility]) 07/10/2023 Unilateral primary osteoarthritis, right hip 09/17/2023 [...] hyperglycemia, with long-term current use of insulin ([facility]) - POCT glucose manually resulted - POCT glycosylated hemoglobin (Hb A1C) docked device We will continue with Lantus 58, lispro 02/16/12 according to meal size, Mounjaro 15 mg once weekly, Farxiga 5 mg once a day Encounter for dietary consultation Vitamin D deficiency Primary hypertension ([facility]) To follow with her PCP Insulin long-term use ([facility]) Hyperlipemia, mixed ([facility]) Continue with Zocor 10 mg once daily Microalbuminuria Class 3 severe obesity due to excess calories with serious comorbidity and body mass index (BMI) of 50.0 to 59.9 in adult ([facility]) Diet and exercise reviewed with the patient Follow up in about 3 months (around 08/27/2024). documented in this encounter [facility] 04-14-2024 History of Present illness Narrative Associated Problem(s): Hyperpigmentation of skin Will try cerevue ointment to see if helps Associated Problem(s): Tobacco user Urged to quit Associated Problem(s): Type 2 diabetes mellitus with complication, with long-term current use of insulin ([facility]) Check blood sugars daily, follow w Endo. [...] with dr Yañez Associated Problem(s): Diabetic neuropathy ([facility]) Continue with tristan EAST reviewed Fu in [...] being taken. She does not see a hvac mechanic.Eye exam is not current. Hypertension This is [...] or chew. ergocalciferol (Vitamin D2) 1.25 MG (61809 UT) capsule TAKE 1 CAPSULE BY MOUTH ONE TIME PER WEEK furosemide (LASIX) 20 mg, Oral, Daily PRN, Take in the afternoon as needed furosemide (LASIX) 40 mg, Oral, Daily Glucose Blood (ACCU-CHEK JAQUI PLUS ) 4 times daily HumaLOG KWIKPEN 100 UNIT/ML injection Subcutaneous hydrALAZINE (APRESOLINE) 25 mg, Oral, 2 times daily HYDROcodone-acetaminophen ([place]) 5-325 MG tablet 1 tablet, 3 times [...] CT Albuminuria 09/17/2023 Angiomyolipoma Anxiety and depression ([facility]) 07/10/2023 Asthma ([facility]) 07/10/2023 Cellulitis of left lower extremity Cervical cancer ([facility]) 09/17/2023 Chronic pain of both knees 09/17/2023 COPD (chronic obstructive pulmonary disease) ([facility]) 07/10/2023 COPD exacerbation ([facility]) 09/17/2023 Decreased functional mobility 09/17/2023 Diabetic neuropathy ([facility]) 07/10/2023 Edema 07/10/2023 Elevated sed rate Elevated WBC count GERD (gastroesophageal reflux disease) 09/17/2023 Hyperlipidemia ([facility]) 09/17/2023 Hypertension ([facility]) 07/10/2023 Insomnia 09/17/2023 Lower extremity edema 09/17/2023 Obstructive sleep apnea 07/10/2023 PAD (peripheral artery disease) ([facility]) 09/17/2023 Pancreatitis 09/17/2023 Pneumonia 09/17/2023 Pulmonary hypertension ([facility]) 09/17/2023 Radiculopathy, lumbar region 09/17/2023 Tobacco user 09/17/2023 Type 2 diabetes mellitus with complication, with long-term current use of insulin ([facility]) 07/10/2023 Unilateral primary osteoarthritis, right hip 09/17/2023 [...] List Items Addressed This Visit Diabetic neuropathy ([facility]) Continue with lyrica OARRS reviewed Fu in 3 months Relevant Medications pregabalin (Lyrica) 300 MG capsule COPD (chronic obstructive pulmonary disease) ([facility]) - Primary Stable at this time, no changes in meds Encouraged smoking cessation Cont with dr Yañez Hypertension ([facility]) Stable on current meds Refill meds Relevant Medications hydrALAZINE (Apresoline) 25 MG tablet lisinopril 20 MG tablet Type 2 diabetes mellitus with complication, with long-term current use of insulin ([facility]) Check blood sugars daily, follow w Endo. [...] 81 MG chewable tablet Anxiety and depression ([facility]) Relevant Medications DULoxetine (Cymbalta) [address] capsule Bilateral lower extremity edema Stable on current meds Insomnia Relevant Medications amitriptyline (Elavil) 25 MG tablet Tobacco user Urged to quit Non-seasonal allergic rhinitis Relevant Medications cetirizine (ZyrTEC) 10 MG tablet Hyperpigmentation of skin Will try cerevue ointment to see if helps Other Visit Diagnoses Type 2 diabetes mellitus with unspecified complications ([facility]) Relevant Medications dapagliflozin (Farxiga) 10 MG Gastro-esophageal reflux disease without esophagitis Relevant Medications omeprazole (PriLOSEC) [address] capsule Edema, unspecified Relevant Medications potassium chloride ER (Micro-K) 10 MEQ ER capsule Edema Relevant Medications potassium chloride ER (Micro-K) 10 MEQ ER capsule Chronic obstructive pulmonary disease, unspecified ([facility]) Relevant Medications Roflumilast 500 MCG tablet documented in this encounter [facility] 11-14-2023 Note [facility] Subjective Mitzi Macias is a 53 y.o. year old female being seen as new patient to establish care. Ref from Mckayla Blas CNP for pulmonary hypertension. She had echo in Aug 2023 while inpatient at [facility] for pneumonia and COPD exacerbation. Denies [...] was admitted in early 2023 to the [facility] with hypoxemia and treated as [...] wheelchair Skin: Gene (more content not included)... [facility] 11-15-2022 Hospital Discharge instructions Patient Education 11/15/2022 [...] include: ?8 oz (237 mL) of milk, gjnoyys-nnzfnkbufpls-lshso milk, and calcium-fortifiedfruit juice. Calcium-fortified means that [...] potatoes, and Ethiopian chard. ?Peanuts. ?Potato chips, guatemalan fries, and baked potatoes with skin on. ?Nuts and nut products. ?Chocolate. If you regularly take a diuretic medicine, make sure to eat at least 1 or 2 servings of fruits or vegetables that are high in potassium each day. These include: ?Avocado. ?Banana. ?[place], prune, carrot, or tomato juice. ?Baked potato. [...] magnesium, fish oil, or vitamin B6. Take ezel-kkp-hjscvkm and prescription medicines only as told by [...] Casseroles. Pizza. Lasagna. Frozen meals. Potato chips. Micronesian fries. The items listed above may not [...] provider. Document Revised: 03/06/2022 Document Reviewed: 03/06/2022 [employer] Patient Education 2022 [employer]. Follow Up Care 02/06/2022 11:44:09 With:SILVIA HOWELL, SARAH Webb, URL Address: [address] [place] [address] When: Unknown [facility] [...] We maintain her on pain medication with [place] 5/325 t.i.d., diclofenac 75 mg b.i.d. Her [...] her at this point. A refill for [place] 5/325 t.i.d. and diclofenac 75 mg b.i.d. will be sent to the pharmacy. Vitamin compliance and nutrition were discussed and enforced. I did highly encourage her to use exercise bands to increase the strength in her lower extremities. We will see her in three months' time, unless otherwise indicated, and patient agrees. [facility] 05-11-2022 Note CONSULTATION CONSULTATION DATE: [...] 150. Medications include Lyrica 300 mg b.i.d., [place] 5/325 t.i.d., diclofenac 75 mg b.i.d. and [...] her medications today. We will maintain Lyrica, [place] and diclofenac at the set dose and frequency. We will follow-up in the clinic in three months' time. The patient is in agreement to this. Vitamin importance and nutrition were discussed. [facility] 04-20-2022 Note CONSULTATION CONSULTATION DATE: [...] medications include Tylenol, Lyrica 300 mg b.i.d., [place] 5/325 t.i.d., amitriptyline, diclofenac and duloxetine. Patient's [...] be followed up in the clinic. [facility] 03-08-2022 Evaluation note Encounter Date [...] to the DANIEL. Thrombocytopenia is unclear etiology. [employer] Other 08-15-2022 Evaluation note* Encounter Date Diagnosis [...] follow with Dr. Souza and Dr. Arauz. [employer] Other 08-01-2022 Hospital Discharge instructions Patient Education [...] fried and sweet foods. General instructions Take kfqx-zso-bbekbbe and prescription medicines only as told by [...] 04/21/2010 Document Revised: 10/16/2019 Document Reviewed: 07/11/2018 [employer] Patient Education 2020 [employer]. Follow Up Care 01/05/2022 12:02:03 With:REGLA PHIPPS, Elbert Joya, URL Address: [facility] [address], [place] [address] [phone] When:Within 6 Month(s) Comments:w/ repeat CT A/P [facility] 07-14-2022 NoteCONSULTATION PROCEDURE DATE: 01/19/2022 PRE AND [...] by: GIL VALENZUELA . 01/27/2022 14:15:00[facility]07-14-2022 NoteCONSULTATION CONSULTATION DATE: 01/19/2022 This is a [...] today. Medications include Lyrica 300 mg b.i.d., [place] 5/325 t.i.d., diclofenac 75 mg b.i.d. and [...] by: GIL VALENZUELA . 01/27/2022 [facility] Future App[facility]ments Appointment Date:08/14/2022 09:15:00 AM Scheduled Provider:Elbert ARAUZ MD Location:[facility] Appointment Type:URO Office Visit [facility] evaluation + Plan note Future Appointments Appointment Date:04/22/2024 10:00:00 AM Scheduled Provider:SARAH VEGA PA-C Location:[facility] Appointment Type:URO Office Visit [facility] evaluation note* Diagnosis Type 2 diabetes mellitus with unspecified complications ([facility]) Edema, unspecified Edema [facility] Diagnosis Vaginal yeast infection- Primary Candidiasis of vulva and vagina [facility] Diagnosis Primary hypertension ([facility]/HCC)- Primary Unspecified essential hypertension Insomnia Insomnia, unspecified Type 2 diabetes mellitus with complication, with long-term current use of insulin ([facility]) Non-seasonal allergic rhinitis, unspecified trigger Type 2 diabetes mellitus with unspecified complications ([facility]/HCC) Anxiety and depression ([facility]) Gastro-esophageal reflux disease without esophagitis Edema, unspecified Edema Diabetic polyneuropathy associated with type 2 diabetes mellitus ([facility]) Chronic obstructive pulmonary disease, unspecified (CMS/HCC) Pulmonary [...] long-term current use of insulin ([facility]) Anxiety and depression (CMS/HCC) Bilateral lower extremity [...] user Tobacco use disorder Cardiomegaly Primary hypertension ([facility]/HCC)- Primary Unspecified essential hypertension Gastroesophageal reflux disease, [...] to 59.9 in adult, unspecified obesity type ([facility]) Encounter for subsequent annual wellness visit (AWV) in Medicare patient- Primary Type 2 diabetes mellitus with unspecified complications (CMS/HCC) Pulmonary emphysema, unspecified emphysema type (CMS/HCC) Moderate persistent asthma without complication (CMS/HCC) Primary hypertension (CMS/[facility]) Unspecified essential hypertension Type 2 diabetes mellitus with complication, with long-term current use of insulin (CMS[facility]) Class 3 severe obesity with serious comorbidity [...] with long-term current use of insulin ([facility]) Non-seasonal allergic rhinitis, unspecified trigger Type 2 diabetes mellitus with unspecified complications ([facility]) Anxiety and depression ([facility]) Gastro-esophageal reflux disease without esophagitis Edema, unspecified Edema Diabetic polyneuropathy associated with type 2 diabetes mellitus ([facility]) Chronic obstructive pulmonary disease, unspecified ([facility]) Pulmonary emphysema, unspecified emphysema type ([facility]) Bilateral lower extremity edema Tobacco user Tobacco use disorder Hyperpigmentation of skin Other dyschromia Type 2 diabetes mellitus with hyperglycemia, with long-term current use of insulin ([facility])- Primary Encounter for dietary consultation Vitamin D deficiency Primary hypertension ([facility]) Unspecified essential hypertension Insulin long-term use ([facility]) Encounter for long-term (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 Hyperlipemia, mixed ([facility]) Mixed hyperlipidemia Microalbuminuria Proteinuria Class 3 severe obesity due to excess calories with serious comorbidity and body mass index (BMI) of 50.0 to 59.9 in adult ([facility]) documented in this encounter [facility]* Diagnosis BMI 50.0-59.9, adult ([facility] Primary Morbid obesity ([facility]) Morbid obesity Smoking Tobacco use disorder [facility] Diagnosis Hyperlipidemia, unspecified ([facility]) Bilateral lower extremity edema documented in this encounter [facility] Diagnosis Vitamin D deficiency, unspecified documented in this encounter [facility]* Diagnosis Obstructive sleep apnea- Primary Obstructive sleep apnea (adult) (pediatric) Pulmonary emphysema, unspecified emphysema type ([facility]) Primary hypertension ([facility]) Unspecified essential hypertension Type 2 diabetes mellitus with complication, with long-term current use of insulin ([facility]) Anxiety and depression ([facility]) Bilateral lower extremity edema Pulmonary emphysema, unspecified emphysema type ([facility])- Primary Primary hypertension ([facility]) Unspecified essential hypertension Class 3 severe obesity with serious comorbidity and body mass index (BMI) of 50.0 to 59.9 in adult, unspecified obesity type ([facility]) Obstructive sleep apnea Obstructive sleep apnea (adult) (pediatric) Pulmonary hypertension ([facility]) Other chronic pulmonary heart diseases Tobacco user Tobacco use disorder Cardiomegaly Primary hypertension ([facility])- Primary Unspecified essential hypertension Gastroesophageal reflux disease, [...] polyneuropathy associated with type 2 diabetes mellitus ([facility]) Gout, unspecified cause, unspecified chronicity, unspecified site Non-seasonal allergic rhinitis, unspecified trigger Bilateral lower extremity edema COPD exacerbation (CMS/HCC) Obstructive chronic bronchitis with exacerbation Pulmonary emphysema, unspecified emphysema type (CMS/HCC) Venous insufficiency Unspecified venous (peripheral) insufficiency Candidiasis of breast COPD exacerbation ([facility])- Primary Obstructive chronic bronchitis with exacerbation Pulmonary hypertension (CMS/HCC) Other chronic pulmonary heart diseases Class 3 severe obesity with serious comorbidity and body mass index (BMI) of 50.0 to 59.9 in adult, unspecified obesity type ([facility]) Encounter for subsequent annual wellness visit (AWV) in Medicare patient- Primary Type 2 diabetes mellitus with unspecified complications ([facility]) Pulmonary emphysema, unspecified emphysema type (CMS/[facility]) Moderate persistent asthma without complication ([facility]) Primary hypertension (CMS/[facility]) Unspecified essential hypertension Type 2 diabetes mellitus with complication, with long-term current use of insulin ([facility]) Class 3 severe obesity with serious comorbidity and body mass index (BMI) of 50.0 to 59.9 in adult, unspecified obesity type ([facility]) Tobacco user Tobacco use disorder Other headache syndrome Malignant neoplasm of cervix uteri, unspecified (CMS/HCC) Other specified disorders of adrenal gland (CMS/HCC) Major depressive disorder, single episode, mild (HCC) (CMS/HCC) Major depressive disorder, single episode, mild 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 exposed ([facility]) Chronic respiratory failure, unspecified whether with hypoxia or hypercapnia (CMS/HCC) Disorder of adrenal gland, unspecified (CMS/HCC) Non-pressure chronic ulcer of other part of right lower leg limited to breakdown of skin (CMS/HCC) Non-recurrent acute suppurative otitis media of left ear without spontaneous rupture of tympanic membrane Primary hypertension ([facility])- Primary Unspecified essential hypertension Insomnia Insomnia, unspecified Type 2 diabetes mellitus with complication, with long-term current use of insulin ([facility]) Non-seasonal allergic rhinitis, unspecified trigger Type 2 diabetes mellitus with unspecified complications ([facility]) Anxiety and depression ([facility]) Gastro-esophageal reflux disease without esophagitis Edema, unspecified Edema Diabetic polyneuropathy associated with type 2 diabetes mellitus ([facility]) Chronic obstructive pulmonary disease, unspecified ([facility]) Pulmonary emphysema, unspecified emphysema type ([facility]) Bilateral lower extremity edema Tobacco user Tobacco use disorder Hyperpigmentation of skin Other dyschromia Bilateral lower extremity edema documented in this encounter [facility]Evaluation note* Diagnosis Obstructive sleep apnea- Primary Obstructive sleep apnea (adult) (pediatric) Pulmonary emphysema, unspecified emphysema type ([facility]) Primary hypertension ([facility]) Unspecified essential hypertension Type 2 diabetes mellitus with complication, with long-term current use of insulin ([facility]) Anxiety and depression ([facility]) Bilateral lower extremity edema Pulmonary emphysema, unspecified emphysema type ([facility])- Primary Primary hypertension ([facility]) Unspecified essential hypertension Class 3 severe obesity with serious comorbidity and body mass index (BMI) of 50.0 to 59.9 in adult, unspecified obesity type ([facility]) Obstructive sleep apnea Obstructive sleep apnea (adult) (pediatric) Pulmonary hypertension ([facility]) Other chronic pulmonary heart diseases Tobacco user Tobacco use disorder Cardiomegaly Primary hypertension ([facility])- Primary Unspecified essential hypertension Gastroesophageal reflux disease, unspecified whether esophagitis present Type 2 diabetes mellitus with complication, with long-term current use of insulin ([facility]) Mixed hyperlipidemia ([facility]) Mixed hyperlipidemia Tobacco user Tobacco use disorder Encounter for screening mammogram for malignant neoplasm of breast Chronic obstructive pulmonary disease, unspecified ([facility]) Other specified chronic obstructive pulmonary disease ([facility]) Anxiety and depression ([facility]) Edema, unspecified Edema Hyperlipidemia, unspecified ([facility]) Diabetic polyneuropathy associated with type 2 diabetes mellitus ([facility]) Gout, unspecified cause, unspecified chronicity, unspecified site Non-seasonal allergic rhinitis, unspecified trigger Bilateral lower extremity edema COPD exacerbation ([facility]) Obstructive chronic bronchitis with exacerbation Pulmonary emphysema, unspecified emphysema type ([facility]/HCC) Venous insufficiency Unspecified venous (peripheral) insufficiency Candidiasis [...] mellitus (CMS/HCC) Pulmonary emphysema, unspecified emphysema type ([facility]) Critical limb ischemia of right lower extremity ([facility]) PAD (peripheral artery disease) ([facility]) Unspecified peripheral vascular disease Gastroesophageal reflux disease, unspecified whether esophagitis present Bilateral lower extremity edema Venous ulcer of right leg ([facility]) Type 2 diabetes mellitus with complication, with long-term current use of insulin ([facility]) Tobacco user Tobacco use disorder Encounter for smoking cessation counseling Kidney stone Calculus of kidney Adrenal mass 1 cm to 4 cm in diameter ([facility]) Radiculopathy, lumbar region Thoracic or lumbosacral neuritis or radiculitis, unspecified Non-seasonal allergic rhinitis, unspecified trigger Type 2 diabetes mellitus with unspecified complications ([facility]) documented in this encounter [facility] [...] History sepsis 2011 Hospitalization History SEE ABOVE [employer] Other Hospital course Narrative No data available for this section [facility] Wilfredo InstructionsNot on filedocumented in this encounter [employer] SystemInstructionsNot on filedocumented in this encounter [employer] note No data available for this section [facility] [place] reason for referral (narrative) , Referral to Dr. 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 DATE CREATED AUTHOR AUTHOR'S ORGANIZ ATION 09/15/[address] [facility] DATE CREATED AUTHOR AUTHOR'S ORGANIZ ATION 12/19/2022 [facility] DATE CREATED AUTHOR AUTHOR'S ORGANIZ ATION 06/03/2024 [facility] DATE CREATED AUTHOR AUTHOR'S ORGANIZ ATION 07/20/2024 [facility] dical [facility] DATE CREATED AUTHOR AUTHOR'S ORGANIZ ATION 08/10/2024 [facility] Care Team (unrecognized sect ion and content) Weight Checker Relationship Specialty Start Date End Date Ty Amin MD PCP - General Family Medicine 01/05/23 Weight Checker Relationship Specialty Start Date End Date Ty Amin MD PCP - General Family Medicine 01/05/23 Weight Checker Relationship Specialty Start Date End Date Ty Amin MD [address] [place] [phone] PCP - General Family Medicine 09/20/23 Mckayla Blas NP [address] [place] [phone] PCP - [facility] 09/07/23 09/05/90 Mckayla Blas NP [address] [place] [phone] Nurse Practitioner Family Medicine 09/20/23 Weight Checker Relationship Specialty Start Date End Date Ty Amin MD [address] [place] [address] PCP - General Family Medicine 09/20/23 Mckayla Blas NP [address] [place] [address] PCP - [facility] 09/07/23 09/05/90 Mckayla Blas NP [address] [place] [phone] Nurse Practitioner Family Medicine 09/20/23 Weight Checker Relationship Specialty Start Date End Date Ty Amin MD [address] [place] [phone] PCP - General Family Medicine 09/20/23 Mckayla Blas NP [address] [place] [phone] [facility] 09/07/23 09/05/90 Mckayla Blas NP [address] [place] [address] Nurse Practitioner Family Medicine 09/20/23 Weight Checker Relationship Specialty Start Date End Date Ty Amin MD [address] [place] [phone] PCP - General Family Medicine 09/20/23 Mckayla Blas NP [address] [place] [phone] PCP - [facility] 09/07/23 09/05/90 Mckayla Blas NP [address] [place] [address] Nurse Practitioner Family Medicine 09/20/23 Weight Checker Relationship Specialty Start Date End Date Ty Amin MD [address] [place] [phone] PCP - General Family Medicine 09/20/23 Mckayla Blas NP [address] [place] [phone] PCP - [facility] 09/07/23 09/05/90 Mckayla Blas NP [address] [place] [phone] Nurse Practitioner Family Medicine 09/20/23 Weight Checker Relationship Specialty Start Date End Date Mckayla Blas, CH[employer]ER[employer]DIRECTOR OF FINANCE [address] [place] [address] PCP - General Nurse Practitioner 09/25/18 Weight Checker Relationship Specialty Start Date End Date Mckayla Blsa, [employer]DIRECT[employer] [address] [place] [address] PCP - General Nurse Practitioner 09/25/18 Weight Checker Relationship Specialty Start Date End Date Ty Amin MD [address] [place] [phone] PCP - General Family Medicine 09/20/23 Mckayla Blas NP [address] [place] [address] PCP - [facility] 09/07/23 09/05/90 Mckayla Blas NP [address] [place] [address] Nurse Practitioner Family Medicine 09/20/23 Weight Checker Relationship Specialty Start Date End Date Ty Amin MD [address] [place] [phone] PCP - General Family Medicine 09/20/23 Mckayla Blas NP [address] [place] [address] PCP - [facility] 09/07/23 09/05/90 Mckayla Blas NP [address] [place] [address] Nurse Practitioner Family Medicine 09/20/23 Weight Checker Relationship Specialty Start Date End Date Ty Amin MD [address] [place] [phone] PCP - General Family Medicine 09/20/23 Mckayla Blas NP [address] [place] [address] PCP - [facility] 09/07/23 09/05/90 Mckayla Blas NP [address] [place] [phone] Nurse Practitioner Family Medicine 09/20/23 Weight Checker Relationship Specialty Start Date End Date Ty Amin MD [address] [place] [phone] PCP - General Family Medicine 09/20/23 Mckayla Blas NP [address] [place] [phone] PCP - [facility] 09/07/23 09/05/90 Mckayla Blas NP [address] [place] [phone] Nurse Practitioner Family Medicine 09/20/23 Weight Checker Relationship Specialty Start Date End Date Ty Amin MD [address] [place] [phone] PCP - General Family Medicine 09/20/23 Mckayla Blas NP [address] [place] [phone] PCP - [facility] 09/07/23 09/05/90 Mckayla Blas NP [address] [place] [phone] Nurse Practitioner Family Medicine 09/20/23 REASON FOR VISIT (unrecogniz ed section and content) Reason Comments Med Refill Reason Comments Diabetes Follow-up Reason Comments NON-PAR WITH [facility] DUAL COMPLE TE WITHOUT OON BENEFITS- NEED [...] ON THE PRIMARY CLINICAL RECORDS. [facility]. provides no warranty or guarantee of the accuracy or completeness of information in this document.
== END 2024-08-18 14:38 | disposition home or self-care (01) ==
LOC: WC 14:38
PROVIDERS: PCP Nurse Practitioner; Visit Provider Physician Assistant
DX: I87.311 Chronic venous hypertension (idiopathic) with ulcer of right lower extremity (principal); L97.812 Non-pressure chronic ulcer of other part of right lower leg with fat layer exposed
CPT/HCPCS: 29580

== ENCOUNTER 2024-08-22 11:24 | Outpatient (OUT) | payer MEDICARE, OTHER, SELFPAY | END 2024-08-22 11:25 | disposition home or self-care (01) | LOC: WC 11:25 | PROVIDERS: PCP Nurse Practitioner; Visit Provider Podiatrist Foot & Ankle Surgery | DX: I87.311 Chronic venous hypertension (idiopathic) with ulcer of right lower extremity (principal); L97.812 Non-pressure chronic ulcer of other part of right lower leg with fat layer exposed | CPT/HCPCS: 29580 ==

== ENCOUNTER 2024-08-25 15:17 | Outpatient (OUT) | payer MEDICARE, OTHER, SELFPAY | END 2024-08-25 15:18 | disposition home or self-care (01) | LOC: WC 15:17 | PROVIDERS: PCP Nurse Practitioner; Visit Provider Podiatrist Foot & Ankle Surgery | DX: I87.311 Chronic venous hypertension (idiopathic) with ulcer of right lower extremity (principal); L97.812 Non-pressure chronic ulcer of other part of right lower leg with fat layer exposed | CPT/HCPCS: 29580 ==

== ENCOUNTER 2024-08-27 13:19 | Outpatient (OUT) | payer MEDICARE, OTHER, SELFPAY ==
--- OUTSIDE RECORDS SUMMARY | 2024-08-27 13:39 | XMS_ITS | CCD ---
Author Organization [facility] Care Team Providers Care Sales Force Developer Name Role Phone James Benavidez Primary Care Provider [phone] JAMES BENAVIDEZ Primary Care Unavailable SHENDGE, VITHAL Admitting Unavailable SHENDGE, VITHAL Attending Unavailable AICHHOLZ, MCKAYLA Primary Care Unavailable AICHHOLZ, MCKAYLA Referring Unavailable AICHHOLZ, MCKAYLA J Primary Care Physician Tico, Stephanie Unavailable OLE RAMIREZ Attending Unavailable OLE RAMIREZ Consulting Unavailable AICHHOLZ, COPS MCKAYLA Primary Care Unavailable OLE RAMIREZ Admitting Unavailable ANTONY SHRESTHA Consulting Unavailable ALONDRA ., UMBERTO Admitting Unavailable ALONDRA ., UMBERTO Attending Unavailable AICHHOLZ, COPS MCKAYLA Primary Care Unavailable AFSANEH Loera, DR BOLANOS Consulting Unavailable MARYANNE POWER Consulting Unavailable GLENN KERR Consulting Unavailable YOMAIRA KERR Consulting Unavailable HATTIE GOFF Consulting Unavailable ALONDRA ., UMBERTO Consulting Unavailable TICO, STEPHANIE Attending Unavailable TICO, STEPHANIE Consulting Unavailable AICHHOLZ, COPS MCKAYLA Primary Care Unavailable TICO, STEPHANIE Admitting Unavailable REGLA ., DR DUMONT Admitting Unavailable AICHHOLZ, COPS MCKAYLA Primary Care Unavailable REGLA ., DR DUMONT Attending Unavailable ARAUZ ., DR DUMONT Consulting Unavailable COLLIN HUERTAS Consulting Unavailable CECILIA KAUFMAN Admitting Unavailable CECILIA KAUFMAN Attending Unavailable AICHHOLZ, COPS MCKAYLA Primary Care Unavailable RAFAEL GONGORA Attending Unavailable RAFAEL GONGORA Admitting Unavailable AICHHOLZ, COPS MCKAYLA Primary Care Unavailable AICHHOLZ, COPS MCKAYLA Admitting Unavailable AICHHOLZ, COPS MCKAYLA Primary Care Unavailable AICHHOLZ, COPS MCKAYLA Attending Unavailable AICHHOLZ, COPS MCKAYLA Consulting Unavailable LAKSHMIPATHY ., NARENDRANATH Attending Anette vailable LAKSHMIPATHY ., NARENDRANATH Consulting Anette vailable LAKSHMIPATHY ., NARENDRANATH Admitting Anette vailable AICHHOLZ, COPS MCKAYLA Primary Care Unavailable VALENZUELA ., GIL Consulting Unavailable MORTENSEN ., DR CHAPARRO Aguillon Attending Unavailable MORTENSEN ., DR CHAPARRO Aguillon Admitting Unavailable AICHHOLZ, COPS MCKAYLA Primary Care Unavailable VALENZUELA ., GIL Consulting Unavailable MORTENSEN ., DR CHAPARRO Aguillon Admitting Unavailable AICHHOLZ, COPS MCKAYLA Primary Care Unavailable MORTENSEN ., DR CHAPARRO Aguillon Attending Unavailable HALKER ., SUBHASH Consulting Unavailable LAKSHMIPATHY ., NARENDRANATH Admitting Anette vailable LAKSHMIPATHY ., NARENDRANATH Attending Anette vailable AICHHOLZ, COPS MCKAYLA Primary Care Unavailable OMRTENSEN ., DR CHAPARRO Aguillon Attending Unavailable MORTENSEN ., DR CHAPARRO Aguillon Admitting Unavailable VALENZUELA ., GIL Consulting Unavailable AICHHOLZ, COPS MCKAYLA Primary Care Unavailable VALENZUELA ., GIL Consulting Unavailable MORTENSEN ., DR CHAPARRO Aguillon Attending Unavailable MORTENSEN ., DR CHAPARRO Aguillon Admitting Unavailable AICHHOLZ, COPS MCKAYLA Primary Care Unavailable HATTIE BRODERICK Attending Unavailable HATTIE BRODERICK Admitting Unavailable AICHHOLZ, COPS MCKAYLA Primary Care Unavailable AICHHOLZ, COPS MCKAYLA Admitting Unavailable AICHHOLZ, COPS MCKAYLA Consulting Unavailable AICHHOLZ, COPS MCKAYLA Primary Care Unavailable AICHHOLZ, COPS MCKAYLA Attending Unavailable AICHHOLZ, COPS MCKAYLA Primary Care Unavailable MISC, DR LESLIE Admitting Unavailable MISC, DR LESLIE Attending Unavailable MISC, DR LESLIE Consulting Unavailable DIAB ., MARIANO Admitting Unavailable DIAB ., MARIANO Attending Unavailable DIAB ., MARIANO Consulting Unavailable AICHHOLZ, COPS MCKAYLA Primary Care Unavailable RASTEGAR, RICCO Consulting Unavailable AICHHOLZ, COPS MCKAYLA Admitting Unavailable AICHHOLZ, COPS MCKAYLA Primary Care Unavailable AICHHOLZ, COPS MCKAYLA Attending Unavailable AICHHOLZ, COPS MCKAYLA Consulting Unavailable DR PATRICIA EVLOZ Consulting Unavailable TAMLYN ., CECILIA Attending Unavailable TAMLYN ., CECILIA Admitting Unavailable DR PATRICIA VELOZ Consulting Unavailable AICHHOLZ, COPS MCKAYLA Primary Care Unavailable TAMLYN ., CECILIA Consulting Unavailable MORTENSEN ., DR CHAPARRO Aguillon Attending Unavailable FESTUS ., DR CHAPARRO Aguillon Consulting Unavailable FESTUS ., DR CHAPARRO Aguillon Admitting Unavailable AICHHOLZ, COPS MCKAYLA Primary Care Unavailable HATTIE BRODERICK Attending Unavailable HATTIE BRODERICK Consulting Unavailable HATTIE BRODERICK Admitting Unavailable AICHHOLZ, COPS MCKAYLA Primary Care Unavailable HATTIE BAUTISTA Unavailable AICHHOLZ, COPS MCKAYLA Admitting Unavailable AICHHOLZ, COPS MCKAYLA Attending Unavailable AICHHOLZ, COPS MCKAYLA Consulting Unavailable AICHHOLZ, COPS MCKAYLA Primary Care Unavailable Brennan PHIPPS, Ty Primary Care Provider Brennan PHIPPS, Ty Primary Care Provider Aichholz GOLF COACH, Mckayla Unavailable Aichholz GOLF COACH, Mckayla Unavailable Elbert ARAUZ Attending Unavailable SARAH [...] Medication Allergies] Propensity to adverse reactions (disorder) [facility] Repository Medications Current Medications Medication Drug [...] Start Date: 02/06/22 Status: Ordered HYDROcodone-acet aminophen ([place]) 5-325 MG tablet 1 tablet 3 (three) times a day as needed for severe pain. Active HYDROcodone-acet aminophen (NORCO) 5-325 mg per tablet 2 (two) times a day. Active take 1 tablet by vandana th twice daily as needed [place] 5-325 MG 1 tablet as needed Orally [...] complication, with long-term current use of insulin ([facility]) Chew 1 tablet (81 mg) [...] every week ergocalciferol (Vitamin D2) 1.25 MG (11365 UT) capsule Indications: Vitamin D deficiency, unspecified [...] tablet daily. 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 Unclassified (1 source) SENIOR CARE INJECT NONINSULN ANTIDIAB; Translations: [TOOTH CUTTER PINION INJECT NONINSULN ANTIDIAB] Onset: 12-05-2022 Unclassified (3 [...] Range Facility Office Visiton 08-08-2024 Follow-up visit [id number] Mitzi Macias 1970 F Date Provider Department Center 08/08/2024 [id number] BRIDGES [facility] Family History Problem Relation Age of Onset Heart attack Paternal Grandmother Family Status - Relation Status Age at Paternal Grandmother Level of Service:15376 SD OFFICE/OUTPATIENT ESTABLISHED MOD MDM 30 MIN Reason for Visit and Comments: Congestive Heart Failure [127] - Denies chest pain, SOB, and palpitations. Hypertension [021928] Hyperlipidemia [182] LVH [Other] Edema [[id number]] - Denies worsening edema. She sees wound care for RLE ulcer. She was seeing the vein specialists here in town but they are moving to [place] in a few weeks. Normal [facility] Glucose (Bld) [Mass/Vol]Orde red By: Mica Sauceda on 05-27-2024 Glucose Blood, POC 158 mg/dL [facility] - Hematology and Cell countson 05-27-2024 HbA1c (Bld) [Mass fraction] 9.2 % [facility] No Panel InformationOrdered By: Mica Sauceda on 05-27-2024 [facility] CREATININEon 05-12-2024 Creatinine [Mass/Vol] 0.92 mg/dL 0.55 - 1.02 mg/dL [facility] GFR/1.73 sq M.predicted CKD-EPI (S/P/Bld) [Vol rate/Area] >60 >=60 mL/min/1.73m 2 [facility] EGFR-NON AF VENEZUELAN >60 >=60 mL/min/1.73m 2 [facility] Office Visiton 11-14-2023 Follow-up visit [id number] Mitzi Macias 1970 F Date Provider Department Center 11/14/2023 BHARAT NICOLE MARIO [facility] Family History Problem Relation Age of Onset Heart attack Paternal Grandmother Family Status - Relation Status Age at Paternal Grandmother Level of Service:90908 SD OFFICE/OUTPATIENT NEW LOW MDM 30 MINUTES Normal [facility] CBC AUTO DIFFon 12-06-2022 BASO # 0.0 103/ul Normal 0.0-0.1 [facility] Comment on above: Performed By: #### C BC #### [facility] [address] [address] [address] Ashlie Hills Basophils/100 WBC (Bld) 0.1 % Critically low 0.2-2.0 [facility] Comment on above: Performed By: #### C BC #### [facility] [address] [place] [address] Dr. Ashlie Hills EO # 0.0 103/ul Normal 0.0-0.7 [facility] Comment on above: Performed By: #### C BC #### [facility] [address] [place] [address] Dr. Ashlie Hills Eosinophils/100 WBC (Bld) 0.0 % Critically low 0.9-7.0 [facility] Comment on above: Performed By: #### C BC #### [facility] [address] [place] [address] Dr. Ashlie Hills Erythrocyte distribution width (RBC) [Ratio] 14.9 % Normal 11.0-15.0 [facility] Comment on above: Performed By: #### C BC #### [facility] [address] [place] [address] Dr. Ashlie Hills Hematocrit (Bld) [Volume fraction] 46.2 % Normal 36.0-48.0 [facility] Comment on above: Performed By: #### C BC #### [facility] [address] [place] [address] Dr. Ashlie Hills Hemoglobin (Bld) [Mass/Vol] 14.7 g/dL Normal 12.0-16.0 [facility] Comment on above: Performed By: #### C BC #### [facility] [address] [place] [address] Dr. Ashlie Hills IG # 0.06 10e3/ul Critically high 0.00-0.03 [facility] Comment on above: Performed By: #### C BC #### [facility] [address] [place] [address] Dr. Ashlie Hills IG % 0.4 % Normal 0.0-0.5 [facility] Comment on above: Performed By: #### C BC #### [facility] [address] [place] [address] Dr. Ashlie Hills LYMPH # 1.3 103/ul Normal 1.2-3.8 [facility] Comment on above: Performed By: #### C BC #### [facility] [address] [place] [address] Dr. Ashlie Hills Lymphocytes/100 WBC (Bld) 9.4 % Critically low 20.5-60.0 [facility] Comment on above: Performed By: #### C BC #### [facility] [address] [place] [address] Dr. Ashlie Hills MANUAL DIFF REQ NO Normal [facility] Comment on above: Performed By: #### C BC #### [facility] [address] [place] [address] Dr. Ashlie Hills MCH (RBC) [Entitic mass] 28.4 pg Normal 26.7-34.0 [facility] Comment on above: Performed By: #### C BC #### [facility] [address] [place] [address] Dr. Ashlie Hills MCHC (RBC) [Mass/Vol] 31.8 g/dL Normal 29.9-35.2 [facility] Comment on above: Performed By: #### C BC #### [facility] [address] [place] [address] Dr. Ashlie Hills MCV (RBC) [Entitic vol] 89.4 fL Normal 81.0-99.0 [facility] Comment on above: Performed By: #### C BC #### [facility] [address] [place] [address] Dr. Ashlie Hills MONO # 0.5 103/ul Normal 0.3-0.8 [facility] Comment on above: Performed By: #### C BC #### [facility] [address] [place] [address] Dr. Ashlie Hills Monocytes/100 WBC (Bld) 3.4 % Normal 1.7-12.0 [facility] Comment on above: Performed By: #### C BC #### [facility] [address] [place] [address] Dr. Ashlie Hills NEUT # 11.8 103/ul Critically high 1.4-6.[address] [facility] Comment on above: Performed By: #### C BC #### [facility] [address] [place] [address] Dr. Ashlie Hills Neutrophils/100 WBC (Bld) 86.7 % Critically high 43.0-75.0 [facility] Comment on above: Performed By: #### C BC #### [facility] [address] [place] [address] Dr. Ashlie Hills Platelet mean volume (Bld) [Entitic vol] 12.6 fL Normal 9.5-13.5 [facility] Comment on above: Performed By: #### C BC #### [facility] [address] [place] [address] Dr. Ashlie Hills PLT 133 103/ul Critically low 150-450 [facility] Comment on above: Performed By: #### C BC #### [facility] [address] [place] [address] Dr. Ashlie Hills RBC 5.17 106/ul Normal 4.20-5.40 [facility] Comment on above: Performed By: #### C BC #### [facility] [address] [place] [address] Dr. Ashlie Hills WBC 13.6 103/ul Critically high 4.0-11.[address] [facility] Comment on above: Performed By: #### C BC #### [facility] [address] [place] [address] Dr. Ashlie Hills MAGNESIUMon 12-06-2022 Magnesium [Mass/Vol] 2.2 mg/dL Normal 1.8-2.4 [facility] Comment on above: Performed By: #### I NFLUAB #### [facility] [address] [place] [address] Dr. Ashlie Hills POINT OF CARE GLUCOSEon 11-08 Glucose [Mass/Vol] 340 mg/dL Critically high 74-106 [facility] Comment on above: Performed By: #### P OCGLUC #### [facility] [address] [place] [address] Dr. Ashlie Hills Glucose [Mass/Vol] 276 mg/dL Critically high 74-106 [facility] Comment on above: Performed By: #### C BC #### [facility] [address] [place] [address] Dr. Ashlie Hills Glucose [Mass/Vol] 333 mg/dL Critically high 74-106 [facility] Comment on above: Performed By: #### C BC #### [facility] [address] [place] [address] Dr. Ashlie Hills PROF CHEM 8 (BAS METB)on Anion gap [Moles/Vol] 10.9 mmol/L Normal [facility] Comment on above: Performed By: #### I NFLUAB #### [facility] [address] [place] [address] Dr. Ashlie Hills Calcium [Mass/Vol] 9.3 mg/dL Normal 8.5-10.1 [facility] Comment on above: Performed By: #### I NFLUAB #### [facility] [address] [place] [address] Dr. Ashlie Hills Chloride [Moles/Vol] 103 mmol/L Normal 98-107 [facility] Comment on above: Performed By: #### I NFLUAB #### [facility] [address] [place] [address] Dr. Ashlie Hills CO2 [Moles/Vol] 31.2 mmol/L Normal 21.0-32.[address] [facility] Comment on above: Performed By: #### I NFLUAB #### [facility] [address] [place] [address] Dr. Ashlie Hills Creatinine [Mass/Vol] 0.96 mg/dL Normal 0.55-1.02 [facility] Comment on above: Performed By: #### I NFLUAB #### [facility] [address] [place] [address] Dr. Ashlie Hills EGFR-AF VENEZUELAN >60 Normal >=[address] [facility] Comment on above: Performed By: #### I NFLUAB #### [facility] [address] [place], [place] [address] Dr. Ashlie Hills EGFR-NON AF VENEZUELAN >60 Normal >=60 [facility] Comment on above: Performed By: #### I NFLUAB #### [facility] [address] [place] [address] Dr. Ashlie Hills Glucose [Mass/Vol] 288 mg/dL Critically high 74-106 [facility] Comment on above: Performed By: #### I NFLUAB #### [facility] [address] [place] [address] Dr. Ashlie Hills Potassium [Moles/Vol] 5.1 mmol/L Normal 3.5-5.1 [facility] Comment on above: Performed By: #### I NFLUAB #### [facility] [address] [place] [address] Dr. Ashlie Hills Sodium [Moles/Vol] 140 mmol/L Normal 136-145 [facility] Comment on above: Performed By: #### I NFLUAB #### [facility] [address] [place] [address] Dr. Ashlie Hills Urea nitrogen [Mass/Vol] 30.0 mg/dL Critically high 7.0-18.0 [facility] Comment on above: Performed By: #### I NFLUAB #### [facility] [address] [place] [address] Dr. Ashlie Hills Urea nitrogen/Creatinine [Mass ratio] 31.2 mg/mg Normal [facility] Comment on above: Performed By: #### I NFLUAB #### [facility] [address] [place] [address] Dr. Ashlie Hills CBC AUTO DIFFon 12-05-2022 BASO # 0.0 103/ul Normal 0.0-0.1 [facility] Comment on above: Performed By: #### C BC #### [facility] [address] [place] [address] Dr. Ashlie Hills Basophils/100 WBC (Bld) 0.4 % Normal 0.2-2.0 [facility] Comment on above: Performed By: #### C BC #### [facility] [address] [place] [address] Dr. Ashlie Hills EO # 0.0 103/ul Normal 0.0-0.7 [facility] Comment on above: Performed By: #### C BC #### [facility] [address] [place] [address] Dr. Ashlie Hills Eosinophils/100 WBC (Bld) 0.0 % Critically low 0.9-7.0 [facility] Comment on above: Performed By: #### C BC #### [facility] [address] [place] [address] Dr. Ashlie Hills Erythrocyte distribution width (RBC) [Ratio] 14.8 % Normal 11.0-15.0 [facility] Comment on above: Performed By: #### C BC #### [facility] [address] [place] [address] Dr. Ashlie Hills Hematocrit (Bld) [Volume fraction] 49.9 % Critically high 36.0-48.0 [facility] Comment on above: Performed By: #### C BC #### [facility] [address] [place] [address] Dr. Ashlie Hills Hemoglobin (Bld) [Mass/Vol] 15.7 g/dL Normal 12.0-16.0 [facility] Comment on above: Performed By: #### C BC #### [facility] [address] [place] [address] Dr. Ashlie Hills IG # 0.04 10e3/ul Critically high 0.00-0.03 [facility] Comment on above: Performed By: #### C BC #### [facility] [address] [place] [address] Dr. Ashlie Hills IG % 0.5 % Normal 0.0-0.5 [facility] Comment on above: Performed By: #### C BC #### [facility] [address] [place] [address] Dr. Ashlie Hills LYMPH # 1.1 103/ul Critically low 1.2-3.8 [facility] Comment on above: Performed By: #### C BC #### [facility] [address] [place] [address] Dr. Ashlie Hills Lymphocytes/100 WBC (Bld) 12.7 % Critically low 20.5-60.0 [facility] Comment on above: Performed By: #### C BC #### [facility] [address] [place] [address] Dr. Ashlie Hills MANUAL DIFF REQ NO Normal [facility] Comment on above: Performed By: #### C BC #### [facility] [address] [address] [address] Ashlie Hills MCH (RBC) [Entitic mass] 28.1 pg Normal 26.7-34.0 [facility] Comment on above: Performed By: #### C BC #### [facility] [address] [place] [address] Dr. Ashlie Hills MCHC (RBC) [Mass/Vol] 31.5 g/dL Normal 29.9-35.2 [facility] Comment on above: Performed By: #### C BC #### [facility] [address] [place] [address] Dr. Ashlie Hills MCV (RBC) [Entitic vol] 89.3 fL Normal 81.0-99.0 [facility] Comment on above: Performed By: #### C BC #### [facility] [address] [place] [address] Dr. Ashlie Hills MONO # 0.1 103/ul Critically low 0.3-0.8 [facility] Comment on above: Performed By: #### C BC #### [facility] [address] [place] [address] Dr. Ashlie Hills Monocytes/100 WBC (Bld) 1.3 % Critically low 1.7-12.0 [facility] Comment on above: Performed By: #### C BC #### [facility] [address] [place] [address] Dr. Ashlie Hills NEUT # 7.2 103/ul Critically high 1.4-6.5 [facility] Comment on above: Performed By: #### C BC #### [facility] [address] [place] [address] Dr. Ashlie Hills Neutrophils/100 WBC (Bld) 85.1 % Critically high 43.0-75.0 [facility] Comment on above: Performed By: #### C BC #### [facility] [address] [address] [address] Ashlie Hills Platelet mean volume (Bld) [Entitic vol] 12.2 fL Normal 9.5-13.5 [facility] Comment on above: Performed By: #### C BC #### [facility] [address] [address] [address] Ashlie Hills PLT 116 103/ul Critically low 150-450 [facility] Comment on above: Performed By: #### C BC #### [facility] [address] [address] [address] Ashlie Hills RBC 5.59 106/ul Critically high 4.20-5.40 [facility] Comment on above: Performed By: #### C BC #### [facility] [address] [address] [address] Ashlie Hills WBC 8.5 103/ul Normal 4.0-11.0 [facility] Comment on above: Performed By: #### C BC #### [facility] [address] [address] [address] Ashlie Hills CTA CHEST WO W [...] left adrenal myelolipoma. Electronically authenticated by: HATTIE GFOF Date: 2022-12-05 01:52 Normal [facility] MAGNESIUMon 12-05-2022 Magnesium [Mass/Vol] 2.1 mg/dL Normal 1.8-2.4 [facility] Comment on above: Performed By: #### P OCGLUC #### [facility] [address] [place] [address] Dr. Ashlie Hills POINT OF CARE GLUCOSEon 11-08 Glucose [Mass/Vol] 293 mg/dL Critically high -106 [facility] Comment on above: Performed By: #### P OCGLUC #### [facility] [address] [place] [address] Dr. Ashlie Hills Glucose [Mass/Vol] 269 mg/dL Critically high -106 [facility] Comment on above: Performed By: #### P OCGLUC #### [facility] [address] [place] [address] Dr. Ashlie Hills Glucose [Mass/Vol] 223 mg/dL Critically high -106 [facility] Comment on above: Performed By: #### C VDAGS #### [facility] [address] [place] [address] Dr. Ashlie Hills PROF CHEM 8 (BAS METB)on Anion gap [Moles/Vol] 11.6 mmol/L Normal [facility] Comment on above: Performed By: #### P OCGLUC #### [facility] [address] [address] [address] Ashlie Hills Calcium [Mass/Vol] 9.2 mg/dL Normal 8.5-10.1 [facility] Comment on above: Performed By: #### P OCGLUC #### [facility] [address] [address] [address] Ashlie Hills Chloride [Moles/Vol] 102 mmol/L Normal 98-107 [facility] Comment on above: Performed By: #### P OCGLUC #### [facility] [address] [address] [address] Ashlie Hills CO2 [Moles/Vol] 28.7 mmol/L Normal 21.0-32.[address] [facility] Comment on above: Performed By: #### P OCGLUC #### [facility] [address] [address] [address] Ashlie Hills Creatinine [Mass/Vol] 1.04 mg/dL Critically high 0.55-1.02 [facility] Comment on above: Performed By: #### P OCGLUC #### [facility] [address] [address] [address] Ashlie Hills EGFR-AF VENEZUELAN >60 Normal >=[address] [facility] Comment on above: Performed By: #### P OCGLUC #### [facility] [address] [address] [address] Ashlie Hills EGFR-NON AF VENEZUELAN 56 mL/min/1.73m2 Critically low >=60 [facility] Comment on above: Performed By: #### P OCGLUC #### [facility] [address] [address] [address] Ashlie Hills Glucose [Mass/Vol] 231 mg/dL Critically high 74-106 [facility] Comment on above: Performed By: #### P OCGLUC #### [facility] [address] [address] [address] Ashlie Hills Potassium [Moles/Vol] 4.3 mmol/L Normal 3.5-5.1 [facility] Comment on above: Performed By: #### P OCGLUC #### [facility] [address] [place] [address] Dr. Ashlie Hills Sodium [Moles/Vol] 138 mmol/L Normal 136-145 [facility] Comment on above: Performed By: #### P OCGLUC #### [facility] [address] [place] [address] Dr. Ashlie Hills Urea nitrogen [Mass/Vol] 17.0 mg/dL Normal 7.0-18.0 [facility] Comment on above: Performed By: #### P OCGLUC #### [facility] [address] [place] [address] Dr. Ashlie Hills Urea nitrogen/Creatinine [Mass ratio] 16.3 mg/mg Normal [facility] Comment on above: Performed By: #### P OCGLUC #### [facility] [address] [place] [address] Dr. Ashlie Hills RESPIRATORY PANEL PLUSon Adenovirus Not detected Normal NOT DETECTED [facility] Comment on above: Performed By: #### C VDAGS #### [facility] [address] [place] [address] Dr. Ashlie Hills B. Parapertusis Not detected Normal NOT DETECTED [facility] Comment on above: Performed By: #### C VDAGS #### [facility] [address] [place] [address] Dr. Ashlie Shaffer. Pertussis Not detected Normal NOT DETECTED [facility] Comment on above: Performed By: #### C VDAGS #### [facility] [address] [place] [address] Dr. Ashlie Hills Chlamydia Pneumoniae Not detected Normal NOT DETECTED [facility] Comment on above: Performed By: #### C VDAGS #### [facility] [address] [place] [address] Dr. Ashlie Hills Coronavirus 229E Not detected Normal NOT DETECTED [facility] Comment on above: Performed By: #### C VDAGS #### [facility] [address] [place] [address] Dr. Ashlie Hills Coronavirus HKU1 Not detected Normal NOT DETECTED [facility] Comment on above: Performed By: #### C VDAGS #### [facility] [address] [place] [address] Dr. Ashlie Hills Coronavirus NL63 Not detected Normal NOT DETECTED [facility] Comment on above: Performed By: #### C VDAGS #### [facility] [address] [address] [address] Ashlie Hills Coronavirus OC43 Not detected Normal NOT DETECTED [facility] Comment on above: Performed By: #### C VDAGS #### [facility] [address] [place] [address] Dr. Ashlie Hills Influenza A H1 Not detected Normal NOT DETECTED [facility] Comment on above: Performed By: #### C VDAGS #### [facility] [address] [place] [address] Dr. Ashlie Hills Influenza A H1 2009 Not detected Normal NOT DETECTED [facility] Comment on above: Performed By: #### C VDAGS #### [facility] [address] [place] [address] Dr. Ashlie Hills Influenza A H3 Not detected Normal NOT DETECTED [facility] Comment on above: Performed By: #### C VDAGS #### [facility] [address] [place] [address] Dr. Ashlie Hills Influenza B Not detected Normal NOT DETECTED [facility] Comment on above: Performed By: #### C VDAGS #### [facility] [address] [place] [address] Dr. Ashlie Hills Metapneumovirus Not detected Normal NOT DETECTED [facility] Comment on above: Performed By: #### C VDAGS #### [facility] [address] [place] [address] Dr. Ashlie Hills Mycoplas. Pneumoniae Not detected Normal NOT DETECTED [facility] Comment on above: Performed By: #### C VDAGS #### [facility] [address] [place] [address] Dr. Ashlie Hills Parainfluenza 1 Not detected Normal NOT DETECTED [facility] Comment on above: Performed By: #### C VDAGS #### [facility] [address] [place] [address] Dr. Ashlie Hills Parainfluenza 2 Not detected Normal NOT DETECTED [facility] Comment on above: Performed By: #### C VDAGS #### [facility] [address] [place] [address] Dr. Ashlie Hills Parainfluenza 3 Detected Abnormal NOT DETECTED [facility] Comment on above: Performed By: #### C VDAGS #### [facility] [address] [place] [address] Dr. Ashlie Hills Parainfluenza 4 Not detected Normal NOT DETECTED [facility] Comment on above: Performed By: #### C VDAGS #### [facility] [address] [place] [address] Dr. Ashlie Hills Rhino/Enterovirus Not detected Normal NOT DETECTED [facility] Comment on above: Performed By: #### C VDAGS #### [facility] [address] [place] [address] Dr. Ashlie Hills RP2 Header 1 RESPIRATORY PANEL: VIRUSES Normal [facility] Comment on above: Performed By: #### C VDAGS #### [facility] [address] [place] [address] Dr. Ashlie Hills RP2 Header 2 RESPIRATORY PANEL: BACTERIA Normal [facility] Comment on above: Performed By: #### C VDAGS #### [facility] [address] [place] [address] Dr. Ashlie Hills RSV Not detected Normal NOT DETECTED [facility] Comment on above: Performed By: #### C VDAGS #### [facility] [address] [place] [address] Dr. Ashlie Hills SARS-CoV-2 (COVID-19) RNA MADDY+probe Ql (Unsp spec) Not detected Normal NOT DETECTED [facility] Comment on above: Performed By: #### C VDAGS #### [facility] [address] [place] [address] Dr. Ashlie Hills XR CHEST 1 Von [...] MARYANNE POWER Date: 2022-12-04 22:23 Normal [facility] BLOOD GASES BTYon 12-04-2022 02 MODE ROOM AIR Normal [facility] Comment on above: Performed By: #### C BC #### [facility] [address] [place] [address] Dr. Ashlie Hills ALLENS TEST Positive Normal [facility] Comment on above: Performed By: #### C BC #### [facility] [address] [place] [address] Dr. Ashlie Hills Base excess Calc (Bld) [Moles/Vol] 5.4 mmol/L Critically high -2.0-2.0 [facility] Comment on above: Performed By: #### C BC #### [facility] [address] [place] [address] Dr. Ashlie Hills BIPAP PRESSURE Normal [facility] Comment on above: Performed By: #### C BC #### [facility] [address] [place] [address] Dr. Ashlie Hills CPAP Normal [facility] Comment on above: Performed By: #### C BC #### [facility] [address] [place] [address] Dr. Ashlie Hills FIO2 Normal [facility] Comment on above: Performed By: #### C BC #### [facility] [address] [place] [address] Dr. Ashlie Hilsl HCO3 (Bld) [Moles/Vol] 30.8 mmol/L Critically high 22.0-26 .0 [facility] Comment on above: Performed By: #### C BC #### [facility] [address] [place] [address] Dr. Ashlie Hills LPM Normal [facility] Comment on above: Performed By: #### C BC #### [facility] [address] [place] [address] Dr. Ashlie Hills MINUTE VOLUME Normal [facility] Comment on above: Performed By: #### C BC #### [facility] [address] [place] [address] Dr. Ashlie Hills Oxygen (Bld) [Partial pressure] 46.3 mm[Hg] Critically low 80.0-100.0 [facility] Comment on above: Performed By: #### C BC #### [facility] [address] [place] [address] Dr. Ashlie Hills Oxygen saturation in Blood 83.9 % Critically low 95.0-100.0 [facility] Comment on above: Performed By: #### C BC #### [facility] [address] [place] [address] Dr. Ashlie Hills PCO2 54.2 mmHg Critically high 35.0-45.0 [facility] Comment on above: Performed By: #### C BC #### [facility] [address] [place] [address] Dr. Ashlie Hills PEEP [facility] Comment on above: Performed By: #### C BC #### [facility] [address] [place] [address] Dr. Ashlie Hills pH (Bld) 7.363 [pH] Normal 7.350-7.450 [facility] Comment on above: Performed By: #### C BC #### [facility] [address] [place] [address] Dr. Ashlie Hills PIP [facility] Comment on above: Performed By: #### C BC #### [facility] [address] [place] [address] Dr. Ashlie Hills PS [facility] Comment on above: Performed By: #### C BC #### [facility] [address] [place] [address] Dr. Ashlie Hills PUNCTURE SITE LR [facility] Comment on above: Performed By: #### C BC #### [facility] [address] [place] [address] Dr. Ashlie Hills [facility] Comment on above: Performed By: #### C BC #### [facility] [address] [place] [address] Dr. Ashlie Hills [facility] Comment on above: Performed By: #### C BC #### [facility] [address] [place] [address] Dr. Ashlie Hills [facility] Comment on above: Performed By: #### C BC #### [facility] [address] [place] [address] Dr. Ashlie Hills BNPon 12-04-2022 Natriuretic peptide B (Bld) [Mass/Vol] 76.0 pg/mL Normal <=900.0 [facility] Comment on above: Performed By: #### P OCGLUC #### [facility] [address] [place] [address] Dr. Ashlie Hills CBC AUTO DIFFon 12-04-2022 BASO # 0.1 103/ul Normal 0.0-0.1 [facility] Comment on above: Performed By: #### C BC #### [facility] [address] [place] [address] Dr. Ashlie Hills Basophils/100 WBC (Bld) 0.6 % Normal 0.2-2.0 [facility] Comment on above: Performed By: #### C BC #### [facility] [address] [place] [address] Dr. Ashlie Hills EO # 0.2 103/ul Normal 0.0-0.7 [facility] Comment on above: Performed By: #### C BC #### [facility] [address] [place] [address] Dr. Ashlie Hills Eosinophils/100 WBC (Bld) 1.9 % Normal 0.9-7.0 [facility] Comment on above: Performed By: #### C BC #### [facility] [address] [place] [address] Dr. Ashlie Hills Erythrocyte distribution width (RBC) [Ratio] 15.0 % Normal 11.0-15.0 [facility] Comment on above: Performed By: #### C BC #### [facility] [address] [address] [address] Ashlie Hills Hematocrit (Bld) [Volume fraction] 49.1 % Critically high 36.0-48.0 [facility] Comment on above: Performed By: #### C BC #### [facility] [address] [address] [address] Ashlie Hills Hemoglobin (Bld) [Mass/Vol] 15.6 g/dL Normal 12.0-16.0 [facility] Comment on above: Performed By: #### C BC #### [facility] [address] [address] [address] Ashlie Hills IG # 0.02 10e3/ul Normal 0.00-0.03 [facility] Comment on above: Performed By: #### C BC #### [facility] [address] [address] [address] Ashlie Hills IG % 0.2 % Normal 0.0-0.5 [facility] Comment on above: Performed By: #### C BC #### [facility] [address] [address] [address] Ashlie Hills LYMPH # 2.8 103/ul Normal 1.2-3.8 [facility] Comment on above: Performed By: #### C BC #### [facility] [address] [address] [address] Ashlie Hills Lymphocytes/100 WBC (Bld) 29.9 % Normal 20.5-60.0 [facility] Comment on above: Performed By: #### C BC #### [facility] [address] [address] [address] Ashlie Hills MANUAL DIFF REQ NO Normal [facility] Comment on above: Performed By: #### C BC #### [facility] [address] [place] [address] Dr. Ashlie Hills MCH (RBC) [Entitic mass] 28.5 pg Normal 26.7-34.0 [facility] Comment on above: Performed By: #### C BC #### [facility] [address] [address] [address] Ashlie Hills MCHC (RBC) [Mass/Vol] 31.8 g/dL Normal 29.9-35.2 [facility] Comment on above: Performed By: #### C BC #### [facility] [address] [address] [address] Ashlie Hills MCV (RBC) [Entitic vol] 89.8 fL Normal 81.0-99.0 [facility] Comment on above: Performed By: #### C BC #### [facility] [address] [address] [address] Ashlie Hills MONO # 1.0 103/ul Critically high 0.3-0.8 [facility] Comment on above: Performed By: #### C BC #### [facility] [address] [address] [address] Ashlie Hills Monocytes/100 WBC (Bld) 10.6 % Normal 1.7-12.0 [facility] Comment on above: Performed By: #### C BC #### [facility] [address] [address] [address] Ashlie Hills NEUT # 5.3 103/ul Normal 1.4-6.5 [facility] Comment on above: Performed By: #### C BC #### [facility] [address] [address] [address] Ashlie Hills Neutrophils/100 WBC (Bld) 56.8 % Normal 43.0-75.0 [facility] Comment on above: Performed By: #### C BC #### [facility] [address] [address] [address] Ashlie Hills Platelet mean volume (Bld) [Entitic vol] 12.5 fL Normal 9.5-13.5 [facility] Comment on above: Performed By: #### C BC #### [facility] [address] [address] [address] Ashlie Hills PLT 109 103/ul Critically low 150-450 [facility] Comment on above: Performed By: #### C BC #### [facility] [address] [place] [address] Dr. Ashlie Hills RBC 5.47 106/ul Critically high 4.20-5.[address] [facility] Comment on above: Performed By: #### C BC #### [facility] [address] [place] [address] Dr. Ashlie Hills WBC 9.4 103/ul Normal 4.0-11.0 [facility] Comment on above: Performed By: #### C BC #### [facility] [address] [place] [address] Dr. Ashlie Hills PROF 14(COMP METB)on 023 Albumin [Mass/Vol] 2.9 g/dL Critically low 3.4-5.0 [facility] Comment on above: Performed By: #### C BC #### [facility] [address] [place] [address] Dr. Ashlie Hills Albumin/Globulin [Mass ratio] 0.6 {ratio} Normal [facility] Comment on above: Performed By: #### C BC #### [facility] [address] [place] [address] Dr. Ashlie Hills ALP [Catalytic activity/Vol] 64 U/L Normal 46-116 [facility] Comment on above: Performed By: #### C BC #### [facility] [address] [place] [address] Dr. Ashlie Hills ALT [Catalytic activity/Vol] 16 U/L Normal 14-59 [facility] Comment on above: Performed By: #### C BC #### [facility] [address] [place] [address] Dr. Ashlie Hills Anion gap [Moles/Vol] 9.6 mmol/L Normal [facility] Comment on above: Performed By: #### C BC #### [facility] [address] [place] [address] Dr. Ashlie Hills AST [Catalytic activity/Vol] 16 U/L Normal 15-37 [facility] Comment on above: Performed By: #### C BC #### [facility] [address] [place] [address] Dr. Ashlie Hills Bilirubin [Mass/Vol] 0.5 mg/dL Normal 0.2-1.0 [facility] Comment on above: Performed By: #### C BC #### [facility] [address] [address] [address] Ashlie Hills Calcium [Mass/Vol] 8.7 mg/dL Normal 8.5-10.1 [facility] Comment on above: Performed By: #### C BC #### [facility] [address] [address] [address] Ashlie Hills Chloride [Moles/Vol] 103 mmol/L Normal 98-107 [facility] Comment on above: Performed By: #### C BC #### [facility] [address] [address] [address] Ashlie Hills CO2 [Moles/Vol] 30.7 mmol/L Normal 21.0-32.[address] [facility] Comment on above: Performed By: #### C BC #### [facility] [address] [place] [address] Dr. Ashlie Hills Creatinine [Mass/Vol] 0.96 mg/dL Normal 0.55-1.02 [facility] Comment on above: Performed By: #### C BC #### [facility] [address] [place] [address] Dr. Ashlie Hills EGFR-AF VENEZUELAN >60 Normal >=[address] [facility] Comment on above: Performed By: #### C BC #### [facility] [address] [place] [address] Dr. Ashlie Hills EGFR-NON AF VENEZUELAN >60 Normal >=60 [facility] Comment on above: Performed By: #### C BC #### [facility] [address] [address] [address] Ashlie Hills Globulin (S) [Mass/Vol] 4.7 g/dL Normal [facility] Comment on above: Performed By: #### C BC #### [facility] [address] [address] [address] Ashlie Hills Glucose [Mass/Vol] 170 mg/dL Critically high 74-106 [facility] Comment on above: Performed By: #### C BC #### [facility] [address] [address] [address] Ashlie Hills Potassium [Moles/Vol] 4.3 mmol/L Normal 3.5-5.1 [facility] Comment on above: Performed By: #### C BC #### [facility] [address] [address] [address] Ashlie Hills Protein [Mass/Vol] 7.6 g/dL Normal 6.4-8.2 [facility] Comment on above: Performed By: #### C BC #### [facility] [address] [address] [address] Ashlie Hills Sodium [Moles/Vol] 139 mmol/L Normal 136-145 [facility] Comment on above: Performed By: #### C BC #### [facility] [address] [address] [address] Ashlie Hills Urea nitrogen [Mass/Vol] 16.0 mg/dL Normal 7.0-18.0 [facility] Comment on above: Performed By: #### C BC #### [facility] [address] [address] [address] Ashlie Hills Urea nitrogen/Creatinine [Mass ratio] 16.7 mg/mg Normal [facility] Comment on above: Performed By: #### C BC #### [facility] [address] [address] [address] Ashlie Hills SYMPTOMATIC COVID-19 ANTIGEN on 12-04-2022 EUA Statement SEE BELOW Normal [facility] Comment on above: Result Comment: This [...] sooner. Performed By: #### C VDAGS #### [facility] [address] [place] [address] Dr. Ashlie Hills SARS-CoV-2 (COVID-19) RNA MADDY+probe Ql (Unsp spec) Negative Normal NEGATIVE [facility] Comment on above: Performed By: #### C VDAGS #### [facility] [address] [place] [address] Dr. Ashlie Hills TROPONIN, HIGH SENSITIVITYon 12-04-2022 HSTROP 8.9 pg/mL Normal 4.0-51.3 [facility] Comment on above: Result Comment: CUT- OFF POINTS HAVE BEEN ESTABLISHED BASED ON THE FOURTH UNIVERSAL DEFINITIONS OF MYOCARDIAL INFARCTION. THE UPPER REFERENCE LIMIT (URL) OF TROPONIN, DEFINED THE 99TH PERCENTILE OF cTnI DISTRIBUTION IN A REFERENCE POPULATION, HAS BEEN CONFIRMED THE DECISION THRESHOLD FOR MT DIAGNOSIS. Performed By: #### P OCGLUC #### [facility] [address] [place] [address] Dr. Ashlie Hills MICROALBUMIN, RAND URon - mALB 35.8 mg/dL Critically high <=30.0 [facility] Comment on above: Performed By: #### C VDAGS #### [facility] [address] [place] [address] Dr. Ashlie Hills UA RANDOM W/MICROSCOPICon BACTERIA NONE SEEN Normal NONE SEEN [facility] Comment on above: Performed By: #### C VDAGS #### [facility] [address] [place] [address] Dr. Ashlie Hills Bilirubin Ql (U) Negative Normal NEGATIVE [facility] Comment on above: Performed By: #### C VDAGS #### [facility] [address] [place] [address] Dr. Ashlie Hills CAST SEEN Abnormal NONE SEEN [facility] Comment on above: Performed By: #### C VDAGS #### [facility] [address] [place] [address] Dr. Ashlie Hills Clarity (U) CLEAR Normal CLEAR [facility] Comment on above: Performed By: #### C VDAGS #### [facility] [address] [place] [address] Dr. Ashlie Hills Color (U) YELLOW Normal YELLOW [facility] Comment on above: Performed By: #### C VDAGS #### [facility] [address] [place] [address] Dr. Ashlie Hills Crystals LM Nom (Urine sed) NONE SEEN Normal NONE SEEN [facility] Comment on above: Performed By: #### C VDAGS #### [facility] [address] [place] [address] Dr. Ashlie Hills Epithelial cells LM Ql (Urine sed) MODERATE Abnormal NONE SEEN /RARE [facility] Comment on above: Performed By: #### C VDAGS #### [facility] [address] [place] [address] Dr. Ashlie Hills Glucose Ql (U) Negative Normal NEGATIVE [facility] Comment on above: Performed By: #### C VDAGS #### [facility] [address] [place] [address] Dr. Ashlie Hills Hemoglobin Ql (U) TRACE-INTACT Abnormal NEGATIVE [facility] Comment on above: Performed By: #### C VDAGS #### [facility] [address] [place] [address] Dr. Ashlie Hills Ketones Ql (U) Negative Normal NEGATIVE [facility] Comment on above: Performed By: #### C VDAGS #### [facility] [address] [place] [address] Dr. Ashlie Hills LEUKOCYTES Negative Normal NEGATIVE [facility] Comment on above: Performed By: #### C VDAGS #### [facility] [address] [place] [address] Dr. Ashlie Hills MUCOUS NONE SEEN Normal NONE SEEN [facility] Comment on above: Performed By: #### C VDAGS #### [facility] [address] [place] [address] Dr. Ashlie Hills Nitrite Ql (U) Negative Normal NEGATIVE [facility] Comment on above: Performed By: #### C VDAGS #### [facility] [address] [place] [address] Dr. Ashlie Hills pH (U) 5.0 [pH] Normal 5-9 [facility] Comment on above: Performed By: #### C VDAGS #### [facility] [address] [place] [address] Dr. Ashlie Hills RBC 0-2 Normal 0-2 [facility] Comment on above: Performed By: #### C VDAGS #### [facility] [address] [place] [address] Dr. Ashlie Hills SPEC GRAVITY 1.030 Abnormal 1.005-<=1.025 [facility] Comment on above: Performed By: #### C VDAGS #### [facility] [address] [place] [address] Dr. Ashlie Hills UA PROTEIN 100 mg/dl Abnormal NEGATIVE/ TRACE [facility] Comment on above: Performed By: #### C VDAGS #### [facility] [address] [place] [address] Dr. Ashlie Hills Urobilinogen Qn (U) 0.2 {Little'U}/dL Normal 0.2 - 1. 0 [facility] Comment on above: Performed By: #### C VDAGS #### [facility] Laboratory [address] [place] [address] Dr. Ashlie Hills WBC NONE SEEN Normal NONE SEEN [facility] Comment on above: Performed By: #### C VDAGS #### [facility] [address] [place] [address] Dr. Ashlie Hills CBC AUTO DIFFon 11-22-2022 BASO # 0.0 103/ul Normal 0.0-0.1 [facility] Comment on above: Performed By: #### C BC #### [facility] [address] [place] [address] Dr. Ashlie Hills Basophils/100 WBC (Bld) 0.3 % Normal 0.2-2.0 [facility] Comment on above: Performed By: #### C BC #### [facility] [address] [address] [address] Ashlie Hills EO # 0.4 103/ul Normal 0.0-0.7 [facility] Comment on above: Performed By: #### C BC #### [facility] [address] [place] [address] Dr. Ashlie Hills Eosinophils/100 WBC (Bld) 3.0 % Normal 0.9-7.0 [facility] Comment on above: Performed By: #### C BC #### [facility] [address] [place] [address] Dr. Ashlie Hills Erythrocyte distribution width (RBC) [Ratio] 15.3 % Critically high 11.0-15.0 [facility] Comment on above: Performed By: #### C BC #### [facility] [address] [place] [address] Dr. Ashlie Hills Hematocrit (Bld) [Volume fraction] 52.4 % Critically high 36.0-48.0 [facility] Comment on above: Performed By: #### C BC #### [facility] [address] [place] [address] Dr. Ashlie Hills Hemoglobin (Bld) [Mass/Vol] 16.8 g/dL Critically high 12.0-16.0 [facility] Comment on above: Performed By: #### C BC #### [facility] [address] [place] [address] Dr. Ashlie Hills IG # 0.04 10e3/ul Critically high 0.00-0.03 [facility] Comment on above: Performed By: #### C BC #### [facility] [address] [place] [address] Dr. Ashlie Hills IG % 0.3 % Normal 0.0-0.5 [facility] Comment on above: Performed By: #### C BC #### [facility] [address] [place] [address] Dr. Ashlie Hills LYMPH # 4.5 103/ul Critically high 1.2-3.8 [facility] Comment on above: Performed By: #### C BC #### [facility] [address] [place] [address] Dr. Ashlie Hills Lymphocytes/100 WBC (Bld) 33.2 % Normal 20.5-60.0 [facility] Comment on above: Performed By: #### C BC #### [facility] [address] [place] [address] Dr. Ashlie Hills MANUAL DIFF REQ NO Normal [facility] Comment on above: Performed By: #### C BC #### [facility] [address] [place] [address] Dr. Ashlie Hills MCH (RBC) [Entitic mass] 28.0 pg Normal 26.7-34.0 [facility] Comment on above: Performed By: #### C BC #### [facility] [address] [place] [address] Dr. Ashlie Hills MCHC (RBC) [Mass/Vol] 32.1 g/dL Normal 29.9-35.2 [facility] Comment on above: Performed By: #### C BC #### [facility] [address] [place] [address] Dr. Ashlie Hills MCV (RBC) [Entitic vol] 87.3 fL Normal 81.0-99.0 [facility] Comment on above: Performed By: #### C BC #### [facility] [address] [place] [address] Dr. Ashlie Hills MONO # 0.8 103/ul Normal 0.3-0.8 [facility] Comment on above: Performed By: #### C BC #### [facility] [address] [place] [address] Dr. Ashlie Hills Monocytes/100 WBC (Bld) 5.7 % Normal 1.7-12.0 [facility] Comment on above: Performed By: #### C BC #### [facility] [address] [place] [address] Dr. Ashlie Hills NEUT # 7.8 103/ul Critically high 1.4-6.5 [facility] Comment on above: Performed By: #### C BC #### [facility] [address] [address] [address] Ashlie Hills Neutrophils/100 WBC (Bld) 57.5 % Normal 43.0-75.0 [facility] Comment on above: Performed By: #### C BC #### [facility] [address] [address] [address] Ashlie Hills Platelet mean volume (Bld) [Entitic vol] 12.0 fL Normal 9.5-13.5 [facility] Comment on above: Performed By: #### C BC #### [facility] [address] [address] [address] Ashlie Hills PLT 152 103/ul Normal 150-450 [facility] Comment on above: Performed By: #### C BC #### [facility] [address] [place] [address] Dr. Ashlie Hills RBC 6.00 106/ul Critically high 4.20-5.[address] [facility] Comment on above: Performed By: #### C BC #### [facility] [address] [place] [address] Dr. Ashlie Hills WBC 13.6 103/ul Critically high 4.0-11.[address] [facility] Comment on above: Performed By: #### C BC #### [facility] [address] [place] [address] Dr. Ashlie Hills LIPID PROFILEon 11-22-2022 CHOL-HDL RATIO NORM SEE BELOW Normal [facility] Comment on above: Result Comment: 3.3 - 4.4 LOW RISK 4.4 - 7.1 AVERAGE RISK 7.1 - 11.0 MODERATE RISK >11.0 HIGH RISK Performed By: #### C BC #### [facility] [address] [place] [address] Dr. Ashlie Hills Cholesterol [Mass/Vol] 139 mg/dL Normal <=[address] [facility] Comment on above: Performed By: #### C BC #### [facility] [address] [place] [address] Dr. Ashlie Hills Cholesterol in HDL [Mass/Vol] 35 mg/dL Critically low 40-60 [facility] Comment on above: Performed By: #### C BC #### [facility] [address] [address] [address] Ashlie Hills Cholesterol in LDL [Mass/Vol] 67.4 mg/dL Normal [facility] Comment on above: Performed By: #### C BC #### [facility] [address] [address] [address] Ashlie Hills Cholesterol.total/Gianna sterol in HDL [Mass ratio] 4.0 {ratio} Normal [facility] Comment on above: Performed By: #### C BC #### [facility] [address] [place] [address] Dr. Ashlie Hills HDL NORMAL > or = 60 mg/dl - LOW CARDIOVASCULAR RISK <40 mg/dl - HIGH CARDIOVASCULAR RISK Normal [facility] Comment on above: Performed By: #### C BC #### [facility] [address] [place] [address] Dr. Ashlie Hills LDL CALC NORMAL SEE BELOW Normal [facility] Comment on above: Result Comment: <100 mg/dl OPTIMAL 100 - 129 mg/dl NEAR OR ABOVE OPTIMAL 130 - 159 mg/dl BORDERLINE HIGH 160 - 189 mg/dl HIGH >190 mg/dl VERY HIGH Performed By: #### C BC #### [facility] [address] [place] [address] Dr. Ashlie Hills Triglyceride [Mass/Vol] 183 mg/dL Critically high <=150 [facility] Comment on above: Performed By: #### C BC #### [facility] [address] [place] [address] Dr. Ashlie Hills VLDL CALC 36.6 mg/dL Normal [facility] Comment on above: Performed By: #### C BC #### [facility] [address] [place] [address] Dr. Ashlie Hills MG MAMM SCREEN 3D ALEX CADon 11-22-2022 MG MAMM SCREEN 3D ALEX CAD Patient: MITZI MACIAS Exam Date: 11/22/2022 : 1970 Gender:F Ordering : SAYDA BLAS COPS Admission #: [id number] Family : Order #: [id number] CLICK HERE TO VIEW EXAM RADIOLOGY REPORT [...] unknown cancer at age 75. LOCATION: [facility] BREAST COMPOSITION: Almost entirely fatty. FINDINGS: [...] M.D. on 11/22/2022 at 12:09 Normal [facility] PROF 14(COMP METB)on 023 Albumin [Mass/Vol] 3.0 g/dL Critically low 3.4-5.0 [facility] Comment on above: Performed By: #### C BC #### [facility] [address] [place], [place] [address] Dr. sAhlie Hills Albumin/Globulin [Mass ratio] 0.6 {ratio} Normal [facility] Comment on above: Performed By: #### C BC #### [facility] [address] [place], [place] [address] Dr. Ashlie Hills ALP [Catalytic activity/Vol] 68 U/L Normal 46-116 [facility] Comment on above: Performed By: #### C BC #### [facility] [address] [address] [address] Ashlie Hills ALT [Catalytic activity/Vol] 14 U/L Normal 14-59 [facility] Comment on above: Performed By: #### C BC #### [facility] [address] [place] [address] Dr. Ashlie Hills Anion gap [Moles/Vol] 12.1 mmol/L Normal [facility] Comment on above: Performed By: #### C BC #### [facility] [address] [address] [address] Ashlie Hills AST [Catalytic activity/Vol] 9 U/L Critically low 15-37 [facility] Comment on above: Performed By: #### C BC #### [facility] [address] [place] [address] Dr. Ashlie Hills Bilirubin [Mass/Vol] 0.4 mg/dL Normal 0.2-1.0 [facility] Comment on above: Performed By: #### C BC #### [facility] [address] [place] [address] Dr. Ashlie Hills Calcium [Mass/Vol] 9.0 mg/dL Normal 8.5-10.1 [facility] Comment on above: Performed By: #### C BC #### [facility] [address] [place] [address] Dr. Ashlie Hills Chloride [Moles/Vol] 105 mmol/L Normal 98-107 [facility] Comment on above: Performed By: #### C BC #### [facility] [address] [place] [address] Dr. Ashlie Hills CO2 [Moles/Vol] 30.7 mmol/L Normal 21.0-32.0 [facility] Comment on above: Performed By: #### C BC #### [facility] [address] [place] [address] Dr. Ashlie Hills Creatinine [Mass/Vol] 0.77 mg/dL Normal 0.55-1.02 [facility] Comment on above: Performed By: #### C BC #### [facility] [address] [place] [address] Dr. Ashlie Hills EGFR-AF VENEZUELAN >60 Normal >=[address] [facility] Comment on above: Performed By: #### C BC #### [facility] [address] [address] [address] Ashlie Hills EGFR-NON AF VENEZUELAN >60 Normal >=60 [facility] Comment on above: Performed By: #### C BC #### [facility] [address] [address] [address] Ashlie Hills Globulin (S) [Mass/Vol] 4.8 g/dL Normal [facility] Comment on above: Performed By: #### C BC #### [facility] [address] [address] [address] Ashlie Hills Glucose [Mass/Vol] 162 mg/dL Critically high 74-106 [facility] Comment on above: Performed By: #### C BC #### [facility] [address] [address] [address] Ashlie Hills Potassium [Moles/Vol] 3.8 mmol/L Normal 3.5-5.1 [facility] Comment on above: Performed By: #### C BC #### [facility] [address] [address] [address] Ashlie Hills Protein [Mass/Vol] 7.8 g/dL Normal 6.4-8.2 [facility] Comment on above: Performed By: #### C BC #### [facility] [address] [address] [address] Ashlie Hills Sodium [Moles/Vol] 144 mmol/L Normal 136-145 [facility] Comment on above: Performed By: #### C BC #### [facility] [address] [address] [address] Ashlie Hills Urea nitrogen [Mass/Vol] 24.0 mg/dL Critically high 7.0-18.0 [facility] Comment on above: Performed By: #### C BC #### [facility] [address] [address] [address] Ashlie Hills Urea nitrogen/Creatinine [Mass ratio] 31.2 mg/mg Normal [facility] Comment on above: Performed By: #### C BC #### [facility] [address] [place] [address] Dr. Ashlie Hills CBC AUTO DIFFon 10-05-2022 BASO # 0.1 103/ul Normal 0.0-0.1 [facility] Comment on above: Performed By: #### C BC #### [facility] [address] [place] [address] Dr. Ashlie Hills Basophils/100 WBC (Bld) 0.6 % Normal 0.2-2.0 [facility] Comment on above: Performed By: #### C BC #### [facility] [address] [place] [address] Dr. Ashlie Hills EO # 0.3 103/ul Normal 0.0-0.7 [facility] Comment on above: Performed By: #### C BC #### [facility] [address] [place] [address] Dr. Ashlie Hills Eosinophils/100 WBC (Bld) 2.1 % Normal 0.9-7.0 [facility] Comment on above: Performed By: #### C BC #### [facility] [address] [place] [address] Dr. Ashlie Hills Erythrocyte distribution width (RBC) [Ratio] 15.9 % Critically high 11.0-15.0 [facility] Comment on above: Performed By: #### C BC #### [facility] [address] [place] [address] Dr. Ashlie Hills Hematocrit (Bld) [Volume fraction] 51.8 % Critically high 36.0-48.0 [facility] Comment on above: Performed By: #### C BC #### [facility] [address] [place] [address] Dr. Ashlie Hills Hemoglobin (Bld) [Mass/Vol] 16.6 g/dL Critically high 12.0-16.0 [facility] Comment on above: Performed By: #### C BC #### [facility] [address] [place] [address] Dr. Ashlie Hills IG # 0.03 10e3/ul Normal 0.00-0.03 [facility] Comment on above: Performed By: #### C BC #### [facility] [address] [place] [address] Dr. Ashlie Hills IG % 0.2 % Normal 0.0-0.5 [facility] Comment on above: Performed By: #### C BC #### [facility] [address] [place] [address] Dr. Ashlie Hills LYMPH # 3.9 103/ul Critically high 1.2-3.8 [facility] Comment on above: Performed By: #### C BC #### [facility] [address] [place] [address] Dr. Ashlie Hills Lymphocytes/100 WBC (Bld) 31.7 % Normal 20.5-60.0 [facility] Comment on above: Performed By: #### C BC #### [facility] [address] [place] [address] Dr. Ashlie Hills MANUAL DIFF REQ NO Normal [facility] Comment on above: Performed By: #### C BC #### [facility] [address] [place] [address] Dr. Ashlie Hills MCH (RBC) [Entitic mass] 27.9 pg Normal 26.7-34.0 [facility] Comment on above: Performed By: #### C BC #### [facility] [address] [place] [address] Dr. Ashlie Hills MCHC (RBC) [Mass/Vol] 32.0 g/dL Normal 29.9-35.2 [facility] Comment on above: Performed By: #### C BC #### [facility] [address] [place] [address] Dr. Ashlie Hills MCV (RBC) [Entitic vol] 87.1 fL Normal 81.0-99.0 [facility] Comment on above: Performed By: #### C BC #### [facility] [address] [place] [address] Dr. Ashlie Hills MONO # 0.7 103/ul Normal 0.3-0.8 [facility] Comment on above: Performed By: #### C BC #### [facility] [address] [address] [address] Ashlie Hills Monocytes/100 WBC (Bld) 5.8 % Normal 1.7-12.0 [facility] Comment on above: Performed By: #### C BC #### [facility] [address] [address] [address] Ashlie Hills NEUT # 7.3 103/ul Critically high 1.4-6.5 [facility] Comment on above: Performed By: #### C BC #### [facility] [address] [address] [address] Ashlie Hills Neutrophils/100 WBC (Bld) 59.6 % Normal 43.0-75.0 [facility] Comment on above: Performed By: #### C BC #### [facility] [address] [place] [address] Dr. Ashlie Hills Platelet mean volume (Bld) [Entitic vol] 11.7 fL Normal 9.5-13.5 [facility] Comment on above: Performed By: #### C BC #### [facility] [address] [address] [address] Ashlie Hills PLT 117 103/ul Critically low 150-450 [facility] Comment on above: Performed By: #### C BC #### [facility] [address] [address] [address] Ashlie Hills RBC 5.95 106/ul Critically high 4.20-5.[address] [facility] Comment on above: Performed By: #### C BC #### [facility] [address] [address] [address] Ashlie Hills WBC 12.3 103/ul Critically high 4.0-11.[address] [facility] Comment on above: Performed By: #### C BC #### [facility] [address] [place] [address] ABD/PELV W CONon [...] by: RICCO PICKARD Date: 2022-10-05 13:13 Normal [facility] ER URINE PROFILEon 3 Bilirubin Ql (U) Negative Normal NEGATIVE [facility] Comment on above: Performed By: #### P OCGLUC #### [facility] [address] [place] [address] Dr. Ashlie Hills Clarity (U) CLEAR Normal CLEAR [facility] Comment on above: Performed By: #### P OCGLUC #### [facility] [address] [address] [address] Ashlie Hills Color (U) YELLOW Normal YELLOW [facility] Comment on above: Performed By: #### P OCGLUC #### [facility] [address] [address] [address] Ashlie HOBBS A micrscopic examination will be performed if indicated. Normal [facility] Comment on above: Performed By: #### P OCGLUC #### [facility] [address] [address] [address] Ashlie Hills Glucose Ql (U) Negative Normal NEGATIVE [facility] Comment on above: Performed By: #### P OCGLUC #### [facility] [address] [address] [address] Ashlie Hills Hemoglobin Ql (U) Negative Normal NEGATIVE [facility] Comment on above: Performed By: #### P OCGLUC #### [facility] [address] [address] [address] Ashlie Hills Ketones Ql (U) Negative Normal NEGATIVE [facility] Comment on above: Performed By: #### P OCGLUC #### [facility] [address] [address] [address] Ashlie Hills LEUKOCYTES Negative Normal NEGATIVE [facility] Comment on above: Performed By: #### P OCGLUC #### [facility] [address] [address] [address] Ashlie Hills Nitrite Ql (U) Negative Normal NEGATIVE [facility] Comment on above: Performed By: #### P OCGLUC #### [facility] [address] [address] [address] Ashlie Hills pH (U) 6.0 [pH] Normal 5-9 [facility] Comment on above: Performed By: #### P OCGLUC #### [facility] [address] [place] [address] Dr. Ashlie Hills Protein (U) [Mass/Vol] 100 mg/dL Abnormal NEGAT YURY/ TRACE [facility] Comment on above: Performed By: #### P OCGLUC #### [facility] [address] [place] [address] Dr. Ashlie Hills SPEC GRAVITY 1.010 Normal 1.005-<=1.025 [facility] Comment on above: Performed By: #### P OCGLUC #### [facility] [address] [place] [address] Dr. Ashlie Hills UR MICRO IND INDICATED Normal [facility] Comment on above: Performed By: #### P OCGLUC #### [facility] [address] [place] [address] Dr. Ashlie Hills Urobilinogen Qn (U) 1.0 {Little'U}/dL Normal 0.2 - 1. 0 [facility] Comment on above: Performed By: #### P OCGLUC #### [facility] [address] [place] [address] Dr. Ashlie Hills LIPASEon 10-05-2022 Lipase [Catalytic activity/Vol] 1771.0 U/L Critically high 73.0-393.0 [facility] Comment on above: Performed By: #### C BC #### [facility] [address] [place] [address] Dr. Ashlie Hills PREG HCG QUALon 10-05-2022 , QUAL Negative Normal NEGATIVE [facility] Comment on above: Performed By: #### P OCGLUC #### [facility] [address] [place] [address] Dr. Ashlie Hills PROF 14(COMP METB)on 023 Albumin [Mass/Vol] 3.2 g/dL Critically low 3.4-5.0 [facility] Comment on above: Performed By: #### C BC #### [facility] [address] [place] [address] Dr. Ashlie Hills Albumin/Globulin [Mass ratio] 0.7 {ratio} Normal [facility] Comment on above: Performed By: #### C BC #### [facility] [address] [place] [address] Dr. Ashlie Hills ALP [Catalytic activity/Vol] 70 U/L Normal 46-116 [facility] Comment on above: Performed By: #### C BC #### [facility] [address] [place] [address] Dr. Ashlie Hills ALT [Catalytic activity/Vol] 11 U/L Critically low 14-59 [facility] Comment on above: Performed By: #### C BC #### [facility] [address] [place] [address] Dr. Ashlie Hills Anion gap [Moles/Vol] 10.3 mmol/L Normal [facility] Comment on above: Performed By: #### C BC #### [facility] [address] [place] [address] Dr. Ashlie Hills AST [Catalytic activity/Vol] 11 U/L Critically low 15-37 [facility] Comment on above: Performed By: #### C BC #### [facility] [address] [place] [address] Dr. Ashlie Hills Bilirubin [Mass/Vol] 0.9 mg/dL Normal 0.2-1.0 [facility] Comment on above: Performed By: #### C BC #### [facility] [address] [address] [address] Ashlie Hills Calcium [Mass/Vol] 9.3 mg/dL Normal 8.5-10.1 [facility] Comment on above: Performed By: #### C BC #### [facility] [address] [place] [address] Dr. Ashlie Hills Chloride [Moles/Vol] 105 mmol/L Normal 98-107 [facility] Comment on above: Performed By: #### C BC #### [facility] [address] [place] [address] Dr. Ashlie Hills CO2 [Moles/Vol] 30.6 mmol/L Normal 21.0-32.[address] [facility] Comment on above: Performed By: #### C BC #### [facility] [address] [place] [address] Dr. Ashlie Hills Creatinine [Mass/Vol] 0.62 mg/dL Normal 0.55-1.02 [facility] Comment on above: Performed By: #### C BC #### [facility] [address] [place] [address] Dr. Ashlie Hills EGFR-AF VENEZUELAN >60 Normal >=[address] [facility] Comment on above: Performed By: #### C BC #### [facility] [address] [place] [address] Dr. Ashlie Hills EGFR-NON AF VENEZUELAN >60 Normal >=60 [facility] Comment on above: Performed By: #### C BC #### [facility] [address] [place] [address] Dr. Ashlie Hills Globulin (S) [Mass/Vol] 4.6 g/dL Normal [facility] Comment on above: Performed By: #### C BC #### [facility] [address] [address] [address] Ashlie Hills Glucose [Mass/Vol] 85 mg/dL Normal 74-106 [facility] Comment on above: Performed By: #### C BC #### [facility] [address] [address] [address] Ashlie Hills Potassium [Moles/Vol] 3.9 mmol/L Normal 3.5-5.1 [facility] Comment on above: Performed By: #### C BC #### [facility] [address] [address] [address] Ashlie Hills Protein [Mass/Vol] 7.8 g/dL Normal 6.4-8.2 [facility] Comment on above: Performed By: #### C BC #### [facility] [address] [place] [address] Dr. Ashlie Hills Sodium [Moles/Vol] 142 mmol/L Normal 136-145 [facility] Comment on above: Performed By: #### C BC #### [facility] [address] [place] [address] Dr. Ashlie Hills Urea nitrogen [Mass/Vol] 12.0 mg/dL Normal 7.0-18.0 [facility] Comment on above: Performed By: #### C BC #### [facility] [address] [place] [address] Dr. Ashlie Hills Urea nitrogen/Creatinine [Mass ratio] 19.4 mg/mg Normal [facility] Comment on above: Performed By: #### C BC #### [facility] [address] [address] [address] Ashlie Hills URINE MICROSCOPIC ONLYon BACTERIA TRACE Abnormal NONE SEEN [facility] Comment on above: Performed By: #### P OCGLUC #### [facility] [address] [address] [address] Ashlie Hills Bacteria identified Cx Nom (U) NOT INDICATED Normal [facility] Comment on above: Performed By: #### P OCGLUC #### [facility] [address] [place] [address] Dr. Ashlie Hills CAST NONE SEEN Normal NONE SEEN [facility] Comment on above: Performed By: #### P OCGLUC #### [facility] [address] [place] [address] Dr. Ashlie Hills Crystals LM Nom (Urine sed) NONE SEEN Normal NONE SEEN [facility] Comment on above: Performed By: #### P OCGLUC #### [facility] [address] [place] [address] Dr. Ashlie Hills Epithelial cells LM Ql (Urine sed) MODERATE Abnormal NONE SEEN /RARE [facility] Comment on above: Performed By: #### P OCGLUC #### [facility] [address] [place] [address] Dr. Ashlie Hills MUCOUS NONE SEEN Normal NONE SEEN [facility] Comment on above: Performed By: #### P OCGLUC #### [facility] [address] [place] [address] Dr. Ashlie Hills RBC 0-2 Normal 0-2 [facility] Comment on above: Performed By: #### P OCGLUC #### [facility] [address] [place] [address] Dr. Ashlie Hills WBC 0-2 Abnormal NONE SEEN [facility] Comment on above: Performed By: #### P OCGLUC #### [facility] [address] [place] [address] Dr. Ashlie Hills [facility]06 SARS-CoV-2 (COVID-19) RNA MADDY+probe Ql (Unsp spec) Detected Abnormal NOT DETECTED [facility] Comment on above: Result Comment: This test is not yet approved or cleared by the [place] FDA. When there are no FDA-approved or cleared tests available, and other criteria are met, FDA can make tests available under an emergency access mechanism called an Emergency Use Authorization (EUA). The EUA for this test is supported by the [place] of Health and Human Service's declaration that [...] used). Performed By: #### C VDAGS #### [facility] [address] [place] [address] Dr. Ashlie Hills INFLUENZA A AND B AGon 09-21 [facility] SEE BELOW Normal [facility] Comment on above: Result Comment: Nega tive for Flu A protein angiten. Infection due to Flu A cannot be ruled out. Flu A angiten in the sample may be below the detection limit of the test. Performed By: #### I NFLUAB #### [facility] [address] [place] [address] Dr. Ashlie Hills [facility] Normal [facility] Comment on above: Result Comment: Nega tive for Flu B protein antigen. Infection due to Flu B cannot be ruled out. Flu B antigen in the sample may be below the detection limit of the test. Performed By: #### I NFLUAB #### [facility] [address] [place] [address] Dr. Ashlie Hills INFLUENZA A AG Negative Normal NEGATIVE SEE COMMENT [facility] Comment on above: Performed By: #### I NFLUAB #### [facility] [address] [place] [address] Dr. Ashlie Hills INFLUENZA B AG Negative Normal NEGATIVE SEE COMMENT [facility] Comment on above: Performed By: #### I NFLUAB #### [facility] [address] [place] [address] ABD/PELV W CONon [...] dating back to at least 10/21/2018, unchanged. [email or web address] access hospital.nih.gov/pmc/artic [email or web address]/ Electronically authenticated by: COLLIN HUERTAS Date: 2022-07-27 14:56 Normal [facility] CREATININEon 07-18-2022 Creatinine [Mass/Vol] 0.81 mg/dL Normal 0.55-1.02 [facility] Comment on above: Performed By: #### C BC #### [facility] [address] [place] [address] Dr. Ashlie Hills EGFR-AF VENEZUELAN >60 Normal >=[address] [facility] Comment on above: Performed By: #### C BC #### [facility] [address] [place] [address] Dr. Ashlie Hills EGFR-NON AF VENEZUELAN >60 Normal >=60 [facility] Comment on above: Performed By: #### C BC #### [facility] [address] [place] [address] LOW EXT W [...] PATRICIA VELOZ Date: 2022-07-18 14:58 Normal [facility] XR KNEE LT 1_2 Von 3 [...] HATTIE BAUTISTA Date: 2022-07-18 12:00 Normal [facility]on 06-09 SARS-CoV-2 (COVID-19) RNA MADDY+probe Ql (Unsp spec) Not detected Normal NOT DETECTED [facility] Comment on above: Result Comment: This test is not yet approved or cleared by the [place] FDA. When there are no FDA-approved or cleared tests available, and other criteria are met, FDA can make tests available under an emergency access mechanism called an Emergency Use Authorization (EUA). The EUA for this test is supported by the [place] Inspector of Health and Human Service's (HHS's) declaration [...] SARS-CoV-2. Performed By: #### C BC #### [facility] [address] [place] [address] Dr. Ashlie Hills INFLUENZA A AND B AGon 07-06 [facility] SEE BELOW Normal [facility] Comment on above: Result Comment: Nega tive for Flu A protein angiten. Infection due to Flu A cannot be ruled out. Flu A angiten in the sample may be below the detection limit of the test. Performed By: #### C BC #### [facility] [address] [place] [address] Dr. Ashlie Hills INFLUBNEGH SEE BELOW Normal [facility] Comment on above: Result Comment: Nega tive for Flu B protein antigen. Infection due to Flu B cannot be ruled out. Flu B antigen in the sample may be below the detection limit of the test. Performed By: #### C BC #### [facility] [address] [place] [address] Dr. Ashlie Hills INFLUENZA A AG Negative Normal NEGATIVE SEE COMMENT [facility] Comment on above: Performed By: #### C BC #### [facility] [address] [place] [address] Dr. Ashlie Hills INFLUENZA B AG Negative Normal NEGATIVE SEE COMMENT [facility] Comment on above: Performed By: #### C BC #### [facility] [address] [place] [address] Dr. Ashlie Hills POINT OF CARE GLUCOSEon 04-08 Glucose [Mass/Vol] 108 mg/dL Critically high 74-106 [facility] Comment on above: Performed By: #### C BC #### [facility] [address] [place] [address] Dr. Ashlie Hills RAGHU by IFAon 03-07-2022 Antinuclear Antibodies, IFA Negative Normal [facility] Comment on above: Result Comment: Nega tive <1:80 Borderline 1:80 Positive >1:80 ICAP nomenclature: AC-0 For more information about Hep-2 cell patterns use ANApatterns.org, the official website for the International Consensus on Antinuclear Antibody (RAGHU) Patterns (ICAP). Performed By: #### A NAIFA #### [facility] [address] [place] [address] Dr. Ashlie Hills IMMUNOFIXATION (TREVON), URINEo n 03-07-2022 TREVON Interpretation:U Comment Normal [facility] Comment on above: Result Comment: No m onoclonality detected. Performed By: #### C BC #### [facility] [address] [place] [address] Dr. Ashlie Hills IMMUNOFIXATION(TREVON),PROTEIN ELEC(PE),FREon 03-07-2022 Albumin [Mass/Vol] 3.0 g/dL Normal 2.9-4.4 [facility] Comment on above: Performed By: #### I NFLUAB #### [facility] [address] [address] [address] Ashlie Hills Albumin/Globulin [Mass ratio] 0.8 {ratio} Normal 0.7-1.7 [facility] Comment on above: Performed By: #### I NFLUAB #### [facility] [address] [place] [address] Dr. Ashlie Hills Auowi-0-Odggywyx 0.3 g/dL Normal 0.0-0.[address] [facility] Comment on above: Performed By: #### I NFLUAB #### [facility] [address] [address] [address] Ashlie Hills Hktmn-7-Quhledqu 1.0 g/dL Normal 0.4-1.[address] [facility] Comment on above: Performed By: #### I NFLUAB #### [facility] [address] [address] [address] Ashlie Hills Beta Globulin 1.8 g/dL Critically high 0.7-1.3 [facility] Comment on above: Performed By: #### I NFLUAB #### [facility] [address] [address] [address] Ashlie Hills Free Lexa Lt Chains,S 45.2 mg/L Critically high 3.3-19.4 [facility] Comment on above: Performed By: #### I NFLUAB #### [facility] [address] [address] [address] Ashlie Hills Free Lambda Lt Chains,S 40.3 mg/L Critically high 5.7-26. 3 [facility] Comment on above: Performed By: #### I NFLUAB #### [facility] [address] [place] [address] Dr. Ashlie Hills Gamma Globulin 0.8 g/dL Normal 0.4-1.8 [facility] Comment on above: Performed By: #### I NFLUAB #### [facility] [address] [place] [address] Dr. Ashlie Hills Globulin (S) [Mass/Vol] 3.9 g/dL Normal 2.2-3.9 [facility] Comment on above: Performed By: #### I NFLUAB #### [facility] [address] [place] [address] Dr. Ashlie Hills Immunofixation Result, Serum Comment Normal [facility] Comment on above: Result Comment: No m onoclonality detected. Performed By: #### I NFLUAB #### [facility] [address] [place] [address] Dr. Ashlie Hills Immunoglobulin A, Qn, Serum 776 mg/dL Critically high 87-352 [facility] Comment on above: Performed By: #### I NFLUAB #### [facility] [address] [place] [address] Dr. Ashile Hills Immunoglobulin G, Qn, Serum 955 mg/dL Normal 586-1602 [facility] Comment on above: Performed By: #### I NFLUAB #### [facility] [address] [place] [address] Dr. Ashlie Hills Immunoglobulin M, Qn, Serum 39 mg/dL Normal 26-217 [facility] Comment on above: Performed By: #### I NFLUAB #### [facility] [address] [place] [address] Dr. Ashlie Hills Lexa/Lambda Ratio, S 1.12 Normal 0.26-1.65 [facility] Comment on above: Performed By: #### I NFLUAB #### [facility] [address] [place] [address] Dr. Ashlie Hills M-Bright Not Observed Normal Not Observed [facility] Comment on above: Performed By: #### I NFLUAB #### [facility] [address] [place] [address] Dr. Ashlie Hills PDF . Normal [facility] Comment on above: Performed By: #### I NFLUAB #### [facility] [address] [place] [address] Dr. Ashlie Hills Please note: Comment Normal [facility] Comment on above: Result Comment: Prot ein electrophoresis scan will follow via computer, mail, or soft top installer delivery. Performed By: #### I NFLUAB #### [facility] [address] [place] [address] Dr. Ashlie Hills Protein [Mass/Vol] 6.9 g/dL Normal 6.0-8.5 [facility] Comment on above: Performed By: #### I NFLUAB #### [facility] [address] [place] [address] Dr. Ashlie Hills C-PEPTIDE, SERUMon C-Peptide, Serum 3.1 ng/mL Normal 1.1-4.[address] [facility] Comment on above: Result Comment: C-Pe ptide reference interval is for fasting patients. Performed By: #### C PEPT #### [facility] [address] [place] [address] Dr. Ashlie Hills HEP B SURFACE ANTIGEN SCREEN on 03-04-2022 HBsAg Screen Negative Normal Negative [facility] Comment on above: Performed By: #### C BC #### [facility] [address] [place] [address] Dr. Ashlie Hills HEPATITIS C VIRUS AB W/ REFL EX QUANTon 03-04-2022 HCV AB <0.1 Normal 0.0-0.9 [facility] Comment on above: Performed By: #### I NFLUAB #### [facility] [address] [place] [address] Dr. Ashlie Hills Interpretation: Comment Normal [facility] Comment on above: Result Comment: Nega tive Not infected with HCV, unless recent infection is suspected or other evidence exists to indicate HCV infection. Performed By: #### I NFLUAB #### [facility] [address] [address] [address] Ashlie Hills MICROALBUMIN/ CREATININE RAT IOon 03-04-2022 Albumin, Urine 367.4 ug/mL Normal Not Estab. The [facility] Comment on above: Performed By: #### C BC #### [facility] [address] [address] [address] Ashlie Hills Albumin/ Creatinine Ratio 239 mg/g creat Critically high 0-29 [facility] Comment on above: Result Comment: Norm al: 0 - 29 Moderately increased: 30 - 300 Severely increased: >300 Performed By: #### C BC #### [facility] [address] [address] [address] Ashlie Hills Creatinine, Urine 153.9 mg/dL Normal Not Estab. [facility] Comment on above: Performed By: #### C BC #### [facility] [address] [address] [address] Ashlie Hills VIT D 25-OH LABCORPon 2021 Vitamin D, 25-Hydroxy <4.0 Critically low 30.0-100.0 [facility] Comment on above: Result Comment: Graciela min D deficiency has been defined by the [place] of Medicine and an Endocrine Society practice guideline as a level of serum 25-OH vitamin D less than 20 ng/mL (1,2). The Endocrine Society went on to further define vitamin D insufficiency as a level between 21 and 29 ng/mL (2). 1. IOM ([place] of Medicine). 2010. Dietary reference intakes for calcium and D. [place]: The National Academies Press. 2. Lynda MF, Keely [place], Leandra LOPEZ, et al. Evaluation, treatment, and prevention of vitamin D deficiency: an Endocrine Society clinical practice guideline. JCEM. 2010; 96(7):1911-30. Performed By: #### C BC #### [facility] [address] [address] [address] Ashlie Hills GLYCOHEMOGLOBIN A1Con 2021 ADA RECOMMENDATION SEE BELOW Normal [facility] Comment on above: Result Comment: ADA RECOMMENDED LIMIT 4.0 - 6.0 ADA THERAPEUTIC TARGET < 7.0 ACTION SUGGESTED > 7.0 Performed By: #### C VDAGS #### [facility] [address] [place] [address] Dr. Ashile Hills Glucose [Mass/Vol] 295 mg/dL Normal [facility] Comment on above: Performed By: #### C VDAGS #### [facility] [address] [place] [address] Dr. Ashlie Hills HbA1c (Bld) [Mass fraction] 11.9 % Critically high 4.5-6.2 [facility] Comment on above: Performed By: #### C VDAGS #### [facility] [address] [place] [address] Dr. Ashlie Hills HEMOGRAM AND PLATELon 2021 Hematocrit (Bld) [Volume fraction] 56.3 % Critically high 36.0-48.0 [facility] Comment on above: Performed By: #### C VDAGS #### [facility] [address] [place] [address] Dr. Ashlie Hills Hemoglobin (Bld) [Mass/Vol] 18.0 g/dL Critically high 12.0-16.0 [facility] Comment on above: Performed By: #### C VDAGS #### [facility] [address] [place] [address] Dr. Ashlie Hills MCH (RBC) [Entitic mass] 29.5 pg Normal 26.7-34.0 [facility] Comment on above: Performed By: #### C VDAGS #### [facility] [address] [place] [address] Dr. Ashlie Hills MCHC (RBC) [Mass/Vol] 32.0 g/dL Normal 29.9-35.2 [facility] Comment on above: Performed By: #### C VDAGS #### [facility] [address] [place] [address] Dr. Ashlie Hills MCV (RBC) [Entitic vol] 92.1 fL Normal 81.0-99.0 [facility] Comment on above: Performed By: #### C VDAGS #### [facility] [address] [address] [address] Ashlie Hills PLT 123 103/ul Critically low 150-450 [facility] Comment on above: Performed By: #### C VDAGS #### [facility] [address] [address] [address] Ashlie Hills RBC 6.11 106/ul Critically high 4.20-5.[address] [facility] Comment on above: Performed By: #### C VDAGS #### [facility] [address] [place] [address] Dr. Ashlie Hills WBC 16.4 103/ul Critically high 4.0-11.[address] [facility] Comment on above: Performed By: #### C VDAGS #### [facility] [address] [place] [address] Dr. Ashlie Hills LIPID PROFILEon 03-03-2022 CHOL-HDL RATIO NORM SEE BELOW Normal [facility] Comment on above: Result Comment: 3.3 - 4.4 LOW RISK 4.4 - 7.1 AVERAGE RISK 7.1 - 11.0 MODERATE RISK >11.0 HIGH RISK Performed By: #### C VDAGS #### [facility] [address] [place] [address] Dr. Ashlie Hills Cholesterol [Mass/Vol] 159 mg/dL Normal <=200 [facility] Comment on above: Performed By: #### C VDAGS #### [facility] [address] [place] [address] Dr. Ashlie Hills Cholesterol in HDL [Mass/Vol] 40 mg/dL Normal 40-60 [facility] Comment on above: Performed By: #### C VDAGS #### [facility] [address] [place] [address] Dr. Ashlie Hills Cholesterol in LDL [Mass/Vol] 81.8 mg/dL Normal [facility] Comment on above: Performed By: #### C VDAGS #### [facility] [address] [place] [address] Dr. Ashlie Hills Cholesterol.total/Gianna sterol in HDL [Mass ratio] 4.0 {ratio} Normal [facility] Comment on above: Performed By: #### C VDAGS #### [facility] [address] [address] [address] Ashlie Hills HDL NORMAL > or = 60 mg/dl - LOW CARDIOVASCULAR RISK <40 mg/dl - HIGH CARDIOVASCULAR RISK Normal [facility] Comment on above: Performed By: #### C VDAGS #### [facility] [address] [address] [address] Ashlie Hills LDL CALC NORMAL SEE BELOW Normal [facility] Comment on above: Result Comment: <100 mg/dl OPTIMAL 100 - 129 mg/dl NEAR OR ABOVE OPTIMAL 130 - 159 mg/dl BORDERLINE HIGH 160 - 189 mg/dl HIGH >190 mg/dl VERY HIGH Performed By: #### C VDAGS #### [facility] [address] [place] [address] Dr. Ashlie Hills Triglyceride [Mass/Vol] 186 mg/dL Critically high <=150 [facility] Comment on above: Performed By: #### C VDAGS #### [facility] [address] [address] [address] Ashlie Hills VLDL CALC 37.2 mg/dL Normal [facility] Comment on above: Performed By: #### C VDAGS #### [facility] [address] [place] [address] Dr. Ashlie Hills RENAL FUNCTION PANELon 03-03 Albumin [Mass/Vol] 3.1 g/dL Critically low 3.4-5.0 [facility] Comment on above: Performed By: #### C BC #### [facility] [address] [place] [address] Dr. Ashlie Hills Calcium [Mass/Vol] 9.2 mg/dL Normal 8.5-10.1 [facility] Comment on above: Performed By: #### C BC #### [facility] [address] [address] [address] Ashlie Hills Chloride [Moles/Vol] 102 mmol/L Normal 98-107 [facility] Comment on above: Performed By: #### C BC #### [facility] [address] [address] [address] Ashlie Hills CO2 [Moles/Vol] 31.9 mmol/L Normal 21.0-32.[address] [facility] Comment on above: Performed By: #### C BC #### [facility] [address] [address] [address] Ashlie Hills Creatinine [Mass/Vol] 0.68 mg/dL Normal 0.55-1.02 [facility] Comment on above: Performed By: #### C BC #### [facility] [address] [place] [address] Dr. Ashlie Hills EGFR-AF VENEZUELAN >60 Normal >=[address] [facility] Comment on above: Performed By: #### C BC #### [facility] [address] [place] [address] Dr. Ashlie Hills EGFR-NON AF VENEZUELAN >60 Normal >=60 [facility] Comment on above: Performed By: #### C BC #### [facility] [address] [place] [address] Dr. Ashlie Hills Glucose [Mass/Vol] 131 mg/dL Critically high 74-106 [facility] Comment on above: Performed By: #### C BC #### [facility] [address] [place] [address] Dr. Ashlie Hills Phosphate [Mass/Vol] 4.0 mg/dL Normal 2.6-4.7 [facility] Comment on above: Performed By: #### C BC #### [facility] [address] [place] [address] Dr. Ashlie Hills Potassium [Moles/Vol] 4.0 mmol/L Normal 3.5-5.1 [facility] Comment on above: Performed By: #### C BC #### [facility] [address] [place] [address] Dr. Ashlie Hills Sodium [Moles/Vol] 141 mmol/L Normal 136-145 [facility] Comment on above: Performed By: #### C BC #### [facility] [address] [place] [address] Dr. Ashlie Hills Urea nitrogen [Mass/Vol] 17.0 mg/dL Normal 7.0-18.0 [facility] Comment on above: Performed By: #### C BC #### [facility] [address] [place] [address] Dr. Ashlie Hills UA RANDOM W/MICROSCOPICon BACTERIA NONE SEEN Normal NONE SEEN [facility] Comment on above: Performed By: #### I NFLUAB #### [facility] [address] [place] [address] Dr. Ashlie Hills Bilirubin Ql (U) Negative Normal NEGATIVE [facility] Comment on above: Performed By: #### I NFLUAB #### [facility] [address] [place] [address] Dr. Ashlie Hills CAST NONE SEEN Normal NONE SEEN [facility] Comment on above: Performed By: #### I NFLUAB #### [facility] [address] [place] [address] Dr. Ashlie Hills Clarity (U) CLEAR Normal CLEAR [facility] Comment on above: Performed By: #### I NFLUAB #### [facility] [address] [place] [address] Dr. Ashlie Hills Color (U) YELLOW Normal YELLOW [facility] Comment on above: Performed By: #### I NFLUAB #### [facility] [address] [place] [address] Dr. Ashlie Hills Crystals LM Nom (Urine sed) NONE SEEN Normal NONE SEEN [facility] Comment on above: Performed By: #### I NFLUAB #### [facility] [address] [place] [address] Dr. Ashlie Hills Epithelial cells LM Ql (Urine sed) FEW Abnormal NONE SEEN /RARE [facility] Comment on above: Performed By: #### I NFLUAB #### [facility] [address] [place] [address] Dr. Ashlie Hills Glucose Ql (U) Negative Normal NEGATIVE [facility] Comment on above: Performed By: #### I NFLUAB #### [facility] [address] [address] [address] Ashlie Hills Hemoglobin Ql (U) Negative Normal NEGATIVE [facility] Comment on above: Performed By: #### I NFLUAB #### [facility] [address] [place] [address] Dr. Ashlie Hills Ketones Ql (U) Negative Normal NEGATIVE [facility] Comment on above: Performed By: #### I NFLUAB #### [facility] [address] [place] [address] Dr. Ashlie Hills LEUKOCYTES Negative Normal NEGATIVE [facility] Comment on above: Performed By: #### I NFLUAB #### [facility] [address] [place] [address] Dr. Ashlie Hills MUCOUS NONE SEEN Normal NONE SEEN [facility] Comment on above: Performed By: #### I NFLUAB #### [facility] [address] [place] [address] Dr. Ashlie Hills Nitrite Ql (U) Negative Normal NEGATIVE [facility] Comment on above: Performed By: #### I NFLUAB #### [facility] [address] [place] [address] Dr. Ashlie Hills pH (U) 5.5 [pH] Normal 5-9 [facility] Comment on above: Performed By: #### I NFLUAB #### [facility] [address] [place] [address] Dr. Ashlie Hills RBC 0-2 Normal 0-2 [facility] Comment on above: Performed By: #### I NFLUAB #### [facility] [address] [place] [address] Dr. Ashlie Hills SPEC GRAVITY >=1.030 Abnormal 1.005-<=1.025 [facility] Comment on above: Performed By: #### I NFLUAB #### [facility] [address] [place] [address] Dr. Ashlie Hills UA PROTEIN 100 mg/dl Abnormal NEGATIVE/ TRACE [facility] Comment on above: Performed By: #### I NFLUAB #### [facility] [address] [place] [address] Dr. Ashlie Hills Urobilinogen Qn (U) 0.2 {Little'U}/dL Normal 0.2 - 1. 0 [facility] Comment on above: Performed By: #### I NFLUAB #### [facility] [address] [place] [address] Dr. Ashlie Hills WBC NONE SEEN Normal NONE SEEN [facility] Comment on above: Performed By: #### I NFLUAB #### [facility] [address] [address] [address] Ashlie Hills URIC ACID SERUMon 03-03-2022 Urate [Mass/Vol] 5.0 mg/dL Normal 2.6-6.0 [facility] Comment on above: Performed By: #### I NFLUAB #### [facility] [address] [place] [address] Dr. Ashlie Hills URINE T PROTEIN CREAT RATIOo n 03-03-2022 Protein (U) [Mass/Vol] 77.9 mg/dL Critically high <=12.0 [facility] Comment on above: Performed By: #### C VDAGS #### [facility] [address] [address] [address] Ashlie Hills UR PROT CREAT RAT 0.44 Normal [facility] Comment on above: Performed By: #### C VDAGS #### [facility] [address] [place] [address] Dr. Ashlie Hills URINE CREAT 175.15 mg/dL Normal 20.00-300.00 [facility] Comment on above: Performed By: #### C VDAGS #### [facility] [address] [address] [address] Ashlie Hills CULTURE URINEon 12-25-2021 CULTURE URINE Culture Observations: GREATER THAN TWO ORGANISMS PRESENT, HEAVILY MIXED. PLEASE RESUBMIT CLEAN CATCH MID-STREAM URINE IF CLINICALLY INDICATED. Normal [facility] Comment on above: Performed By: #### I NFLUAB #### [facility] [address] [place] [address] Dr. Ashlie Hills CBC AUTO DIFFon 12-24-2021 BASO # 0.1 103/ul Normal 0.0-0.1 [facility] Comment on above: Performed By: #### C BC #### [facility] [address] [place] [address] Dr. Ashlie Hills Basophils/100 WBC (Bld) 0.5 % Normal 0.2-2.0 [facility] Comment on above: Performed By: #### C BC #### [facility] [address] [place] [address] Dr. Ashlie Hills EO # 0.4 103/ul Normal 0.0-0.7 [facility] Comment on above: Performed By: #### C BC #### [facility] [address] [place] [address] Dr. Ashlie Hills Eosinophils/100 WBC (Bld) 2.4 % Normal 0.9-7.0 [facility] Comment on above: Performed By: #### C BC #### [facility] [address] [place] [address] Dr. Ashlie Hills Erythrocyte distribution width (RBC) [Ratio] 14.1 % Normal 11.0-15.0 [facility] Comment on above: Performed By: #### C BC #### [facility] [address] [place] [address] Dr. Ashlie Hills Hematocrit (Bld) [Volume fraction] 55.9 % Critically high 36.0-48.0 [facility] Comment on above: Performed By: #### C BC #### [facility] [address] [place] [address] Dr. Ashlie Hills Hemoglobin (Bld) [Mass/Vol] 17.9 g/dL Critically high 12.0-16.0 [facility] Comment on above: Performed By: #### C BC #### [facility] [address] [place] [address] Dr. Ashlie Hills IG # 0.06 10e3/ul Critically high 0.00-0.03 [facility] Comment on above: Performed By: #### C BC #### [facility] [address] [place] [address] Dr. Ashlie Hills IG % 0.4 % Normal 0.0-0.5 [facility] Comment on above: Performed By: #### C BC #### [facility] [address] [place] [address] Dr. Ashlie Hills LYMPH # 5.8 103/ul Critically high 1.2-3.8 [facility] Comment on above: Performed By: #### C BC #### [facility] [address] [place] [address] Dr. Ashlie Hills Lymphocytes/100 WBC (Bld) 35.4 % Normal 20.5-60.0 [facility] Comment on above: Performed By: #### C BC #### [facility] [address] [place] [address] Dr. Ashlie Hills MANUAL DIFF REQ NO Normal [facility] Comment on above: Performed By: #### C BC #### [facility] [address] [place] [address] Dr. Ashlie Hills MCH (RBC) [Entitic mass] 29.4 pg Normal 26.7-34.0 [facility] Comment on above: Performed By: #### C BC #### [facility] [address] [place] [address] Dr. Ashlie Hills MCHC (RBC) [Mass/Vol] 32.0 g/dL Normal 29.9-35.2 [facility] Comment on above: Performed By: #### C BC #### [facility] [address] [place] [address] Dr. Ashlie Hills MCV (RBC) [Entitic vol] 91.8 fL Normal 81.0-99.0 [facility] Comment on above: Performed By: #### C BC #### [facility] [address] [place] [address] Dr. Ashlie Hills MONO # 0.8 103/ul Normal 0.3-0.8 [facility] Comment on above: Performed By: #### C BC #### [facility] [address] [place] [address] Dr. Ashlie Hills Monocytes/100 WBC (Bld) 4.8 % Normal 1.7-12.0 [facility] Comment on above: Performed By: #### C BC #### [facility] [address] [address] [address] Ashlie Hills NEUT # 9.3 103/ul Critically high 1.4-6.5 [facility] Comment on above: Performed By: #### C BC #### [facility] [address] [address] [address] Ashlie Hills Neutrophils/100 WBC (Bld) 56.5 % Normal 43.0-75.0 [facility] Comment on above: Performed By: #### C BC #### [facility] [address] [address] [address] Ashlie Hills Platelet mean volume (Bld) [Entitic vol] 12.9 fL Normal 9.5-13.5 [facility] Comment on above: Performed By: #### C BC #### [facility] [address] [place] [address] Dr. Ashlie Hills PLT 127 103/ul Critically low 150-450 [facility] Comment on above: Performed By: #### C BC #### [facility] [address] [address] [address] Ashlie Hills RBC 6.09 106/ul Critically high 4.20-5.[address] [facility] Comment on above: Performed By: #### C BC #### [facility] [address] [place] [address] Dr. Ashlie Hills WBC 16.4 103/ul Critically high 4.0-11.[address] [facility] Comment on above: Performed By: #### C BC #### [facility] [address] [place] [address] ABD/PELVIS WO CONon [...] Severe right hip degenerative change. Normal [facility] ER URINE PROFILEon 2 Bilirubin Ql (U) Negative Normal NEGATIVE [facility] Comment on above: Performed By: #### E RUR, UMICRO #### [facility] [address] [place] [address] Dr. Ashlie Hills Clarity (U) CLEAR Normal CLEAR [facility] Comment on above: Performed By: #### E RUR, UMICRO #### [facility] [address] [place] [address] Dr. Ashlie Hills Color (U) DK. ORANGE Abnormal YELLOW [facility] Comment on above: Performed By: #### E RUR, UMICRO #### [facility] [address] [place] [address] Dr. Ashlie HOBBS A micrscopic examination will be performed if indicated. Normal [facility] Comment on above: Performed By: #### E RUR, UMICRO #### [facility] [address] [place] [address] Dr. Ashlie Hills Glucose Ql (U) 250 mg/dl Abnormal NEGATIVE [facility] Comment on above: Performed By: #### E RUR, UMICRO #### [facility] [address] [place] [address] Dr. Ashlie Hills Hemoglobin Ql (U) Negative Normal NEGATIVE [facility] Comment on above: Performed By: #### E RUR, UMICRO #### [facility] [address] [place] [address] Dr. Ashlie Hills Ketones Ql (U) Negative Normal NEGATIVE [facility] Comment on above: Performed By: #### E RUR, UMICRO #### [facility] [address] [place] [address] Dr. Ashlie Hills LEUKOCYTES Negative Normal NEGATIVE [facility] Comment on above: Performed By: #### E RUR, UMICRO #### [facility] [address] [place] [address] Dr. Ashlie Hills Nitrite Ql (U) Negative Normal NEGATIVE [facility] Comment on above: Performed By: #### E RUR, UMICRO #### [facility] [address] [place] [address] Dr. Ashlie Hills pH (U) 5.0 [pH] Normal 5-9 [facility] Comment on above: Performed By: #### MAEDLINE DIAZRO #### [facility] [address] [place] [address] Dr. Ashlie Hills Protein (U) [Mass/Vol] 100 mg/dL Abnormal NEGAT YURY/ TRACE [facility] Comment on above: Performed By: #### Tracey LYMAN, UMICRO #### [facility] [address] [place] [address] Dr. Ashlie Hills SPEC GRAVITY >=1.030 Abnormal 1.005-<=1.025 [facility] Comment on above: Performed By: #### Tracey LYMAN, MADELINERO #### [facility] [address] [place] [address] Dr. Ashlie Hills UR MICRO IND INDICATED Normal [facility] Comment on above: Performed By: #### Tracey LYMAN UMHARRIETRO #### [facility] [address] [place] [address] Dr. Ashlie Hills Urobilinogen Qn (U) 1.0 {Little'U}/dL Normal 0.2 - 1. 0 [facility] Comment on above: Performed By: #### Tracey LYMAN, MADELINERO #### [facility] [address] [place] [address] Dr. Ashlie Hills PROF CHEM 8 (BAS METB)on Anion gap [Moles/Vol] 12.1 mmol/L Normal [facility] Comment on above: Performed By: #### I NFLUAB #### [facility] [address] [place] [address] Dr. Ashlie Hills Calcium [Mass/Vol] 9.0 mg/dL Normal 8.5-10.1 [facility] Comment on above: Performed By: #### I NFLUAB #### [facility] [address] [place] [address] Dr. Ashlie Hills Chloride [Moles/Vol] 101 mmol/L Normal 98-107 [facility] Comment on above: Performed By: #### I NFLUAB #### [facility] [address] [address] [address] Ashlie Hills CO2 [Moles/Vol] 29.1 mmol/L Normal 21.0-32.[address] [facility] Comment on above: Performed By: #### I NFLUAB #### [facility] [address] [address] [address] Ashlie Hills Creatinine [Mass/Vol] 0.86 mg/dL Normal 0.55-1.02 [facility] Comment on above: Performed By: #### I NFLUAB #### [facility] [address] [place] [address] Dr. Ashlie Hills EGFR-AF VENEZUELAN >60 Normal >=[address] [facility] Comment on above: Performed By: #### I NFLUAB #### [facility] [address] [address] [address] Ashlie Hills EGFR-NON AF VENEZUELAN >60 Normal >=60 [facility] Comment on above: Performed By: #### I NFLUAB #### [facility] [address] [address] [address] Ashlie Hills Glucose [Mass/Vol] 236 mg/dL Critically high 74-106 [facility] Comment on above: Performed By: #### I NFLUAB #### [facility] [address] [address] [address] Ashlie Hills Potassium [Moles/Vol] 4.2 mmol/L Normal 3.5-5.1 [facility] Comment on above: Performed By: #### I NFLUAB #### [facility] [address] [address] [address] Ashlie Hills Sodium [Moles/Vol] 138 mmol/L Normal 136-145 [facility] Comment on above: Performed By: #### I NFLUAB #### [facility] [address] [address] [address] Ashlie Hills Urea nitrogen [Mass/Vol] 11.0 mg/dL Normal 7.0-18.0 [facility] Comment on above: Performed By: #### I NFLUAB #### [facility] [address] [place] [address] Dr. Ashlie Hills Urea nitrogen/Creatinine [Mass ratio] 12.8 mg/mg Normal [facility] Comment on above: Performed By: #### I NFLUAB #### [facility] [address] [place] [address] Dr. Ashlie Hills URINE MICROSCOPIC ONLYon BACTERIA SMALL Abnormal NONE SEEN [facility] Comment on above: Performed By: #### E RUR, UMICRO #### [facility] [address] [place] [address] Dr. Ashlie Hills Bacteria identified Cx Nom (U) INDICATED Normal [facility] Comment on above: Performed By: #### E RUR, UMICRO #### [facility] [address] [place] [address] Dr. Ashlie Hills CAST NONE SEEN Normal NONE SEEN [facility] Comment on above: Performed By: #### E RUR, UMICRO #### [facility] [address] [place] [address] Dr. Ashlie Hills Crystals LM Nom (Urine sed) NONE SEEN Normal NONE SEEN [facility] Comment on above: Performed By: #### E RUR, UMICRO #### [facility] [address] [place] [address] Dr. Ashlie Hills Epithelial cells LM Ql (Urine sed) MODERATE Abnormal NONE SEEN /RARE [facility] Comment on above: Performed By: #### E RUR, UMICRO #### [facility] [address] [place] [address] Dr. Ashlie Hills MUCOUS NONE SEEN Normal NONE SEEN [facility] Comment on above: Performed By: #### E RUR, UMICRO #### [facility] [address] [place] [address] Dr. Ashlie Hills RBC 0-2 Normal 0-2 [facility] Comment on above: Performed By: #### E NURA, UMICRO #### [facility] [address] [place] [address] Dr. Ashlie Hills WBC 0-2 Abnormal NONE SEEN [facility] Comment on above: Performed By: #### E EVONNE LYMAN #### [facility] [address] [address] [address] Ashlie Hills YEAST PRESENT Abnormal NONE SEEN [facility] Comment on above: Performed By: #### E EVONNE LYMAN #### [facility] [address] [address] [address] Ashlie Hills HIP RIGHT 1 OR 2 VWS WITH PE LVISon 07-20-2020 HIP RIGHT 1 OR 2 VWS WITH PELVIS [facility] Department of Radiology [address] [place] [address] Patient Name: MITZI MACIAS : [...] MRI. Electronically signed: Pipo Acevedo. Transcribed by: [email or web address], User Resident: Electronically Signed by: PIPO ACEVEDO @ 07/20/2020 03:45 PM Normal [facility] Comment on above: Order Comment: evalu ate Vital Signs Date Time Vital Sign Value Performing Clinician Facility 06-19-2024 11:26-0500 Body height 170 cm Jonathan Hudson MD Work Phone: [facility] 06-19-2024 11:26-0500 Body mass index (BMI) [Ratio] 58.7 kg/m2 Jonathan Hudson MD Work Phone: [facility] 06-19-2024 11:26-0500 Body temperature 98.01 [degF] Jonathan Hudson MD Work Phone: [facility] 06-19-2024 11:26-0500 Body weight 169.65 kg Jonathan Hudson MD Work Phone: [facility] 06-19-2024 11:26-0500 Diastolic blood pressure 70 mm[Hg] Jonathan Hudson MD Work Phone: [facility] 06-19-2024 11:26-0500 Heart rate 78 /min Jonathan Hudson MD Work Phone: [facility] 06-19-2024 11:26-0500 Respiratory rate 20 /min Jonathan Hudson MD Work Phone: [facility] 06-19-2024 11:26-0500 Systolic blood pressure 160 mm[Hg] Jonathan Hudson MD Work Phone: [facility] 06-11-2024 10:00-0500 Blood Pressure Location Elbert ARAUZ [facility] 06-11-2024 10:00-0500 Diastolic blood pressure 68 mm[Hg] Elbert ARAUZ [facility] 06-11-2024 10:00-0500 Heart rate 76 /min Elbert ARAU[facility] 06-11-2024 10:00-0500 Systolic blood pressure 132 mm[Hg] Elbert ARAU[facility] 05-27-2024 10:20-0500 Body height 170.2 cm Rain Souza MD Work Phone: [facility] 05-27-2024 10:20-0500 Body mass index (BMI) [Ratio] 56.7 kg/m2 Rain Souza MD Work Phone: [facility] 05-27-2024 10:20-0500 Body weight 164.2 kg Rain Souza MD Work Phone: [facility] 05-27-2024 10:20-0500 Diastolic blood pressure 66 mm[Hg] Rain Souza MD Work Phone: [facility] 05-27-2024 10:20-0500 Heart rate 72 /min Rain Souza MD Work Phone: [facility] 05-27-2024 10:20-0500 Respiratory rate 16 /min Rain Souza MD Work Phone: [facility] 05-27-2024 10:20-0500 Systolic blood pressure 128 mm[Hg] Rain Souza MD Work Phone: [facility] 04-14-2024 10:27-0400 Body height 165.1 cm Mckayla Blas [employer] Work Phone: [facility] 04-14-2024 10:27-0400 Body mass index (BMI) [Ratio] 61.01 kg/m2 Mckayla Blas [employer] Work Phone: [facility] 04-14-2024 10:27-0400 Body temperature 98.49 [degF] Mckayla Blas [employer] Work Phone: [facility] 04-14-2024 10:27-0400 Body weight 166.29 kg Mckayla Blas [employer] Work Phone: [facility] 04-14-2024 10:27-0400 Diastolic blood pressure 80 mm[Hg] Mckayla Blas [employer] Work Phone: [facility] 04-14-2024 10:27-0400 Heart rate 77 /min Mckayla Blas [employer] Work Phone: [facility] 04-14-2024 10:27-0400 Respiratory rate 19 /min Mckayla Blas [employer] Work Phone: [facility] 04-14-2024 10:27-0400 SaO2% (BldA) [Mass fraction] 92 % Mckayla Blas [employer] Work Phone: [facility] 04-14-2024 10:27-0400 Systolic blood pressure 116 mm[Hg] Mckayla Blas [employer] Work Phone: [facility] 03-08-2022 15:00-0400 Body height 170.18 cm Stephanie Tico Other [facility] Other 03-08-2022 15:00-0400 Body temperature 97.6 [degF] Stephanie Tico Other [facility] Other 03-08-2022 15:00-0400 Diastolic blood pressure 72 mm[Hg] Stephanie Tico Other [facility] Other 03-08-2022 15:00-0400 Respiratory rate 20 /min Stephanie Tico Other [facility] Other 03-08-2022 15:00-0400 SaO2% (BldA) [Mass fraction] 91 % Stephanie Tico Other [facility] Other 03-08-2022 15:00-0400 Systolic blood pressure 131 mm[Hg] Stephanie Tico Other [facility] Other 02-20-2022 09:20-0400 Body height 170.18 cm Stephanie Tico Other [facility] Other 02-20-2022 09:20-0400 Body temperature 96.5 [degF] Stephanie Tico Other [facility] Other 02-20-2022 09:20-0400 Diastolic blood pressure 69 mm[Hg] Stephanie Tico Other [facility] Other 02-20-2022 09:20-0400 Respiratory rate 20 /min Stephanie Tico Other [facility] Other 02-20-2022 09:20-0400 SaO2% (BldA) [Mass fraction] 91 % Stephanie Tico Other [facility] Other 02-20-2022 09:20-0400 Systolic blood pressure 129 mm[Hg] Stephanie Tico Other [facility] Other 02-06-2022 10:24-0400 Blood Pressure Location Elbert ARAUZ [facility] 02-06-2022 10:24-0400 Diastolic blood pressure 76 mm[Hg] Elbert ARAUZ [facility] 02-06-2022 10:24-0400 Heart rate 70 /min Elbert ARAUZ [facility] 02-06-2022 10:24-0400 Respiratory rate 16 /min Elbert ARAUZ [facility] 02-06-2022 10:24-0400 Systolic blood pressure 134 mm[Hg] Elbert ARAUZ [facility] Encounters Encounter Date Encounter Type Care Provider Facility Start: 08-08-2024 End: 08-08-2024 ambulatory [facility] Start: 07-17-2024 End: 07-17-2024 Refill Mckayla Blas [employer] Work Phone: [facility] Start: 07-14-2024 End: 07-14-2024 Office outpatient visit 25 minutes Mckayla Blas [employer] Work Phone: [facility] Comment on [...] 07-07-2024 Refill Mckayla Blas NP Work Phone: [facility] Comment on above: Bilateral lower extr emity edema Start: 06-19-2024 End: 06-19-2024 Office outpatient new 45 minutes Jonathan Hduson MD Work Phone: [facility] Comment on above: BMI 50.0-59.9, adult (CMS-HCC) (Primary Dx); Morbid obesity (CMS-HCC); Smoking Start: 06-13-2024 End: 06-13-2024 Telephone encounter Jonathan Hudson MD Work Phone: [facility] Start: 06-11-2024 ambulatory Elbert ARAUZ Facili ty:[facility] Start: 06-11-2024 End: 06-11-2024 Patient encounter procedure Elbert ARAUZ [facility] Start: 05-27-2024 End: 05-27-2024 Bamboo flowsheet Rain Souza MD Work Phone: [facility] Start: 05-27-2024 End: 05-27-2024 Bamboo flowsheet Rain Souza MD Work Phone: [facility] Start: 05-27-2024 End: 05-27-2024 ambulatory RAIN SOUZA Not Available Start: 05-27-2024 End: 05-27-2024 Office outpatient visit 25 minutes Rain Souza MD Work Phone: [facility] Comment on above: Type 2 diabetes [...] 04-14-2024 End: 04-14-2024 Bamboo flowsheet Mckayla Blas [employer] Work Phone: [facility] Start: 04-14-2024 End: 04-14-2024 Bamboo flowsheet Mckayla Blas [employer] Work Phone: [facility] Start: 04-14-2024 End: 04-14-2024 Office outpatient visit 25 minutes Mckayla Blas [employer] Work Phone: [facility] Comment on above: Primary hypertension (CMS/HCC) (Primary [...] Pulmonary emphysema, unspecified emphysema type (CMS/[facility]); Bilateral lower extremity edema; Tobacco user; Hyperpigmentation of skin Start: 04-14-2024 End: 04-14-2024 ambulatory MCKAYLA AICHHOLZ Not Available Start: 04-05-2024 End: 04-06-2024 Refill Mckayla Wan [employer] Work Phone: [facility] Comment on above: Hyperlipidemia, unsp ecified (CMS/HCC); Bilateral lower extremity edema Vitamin D deficiency , unspecified Start: 01-17-2024 Patient encounter procedure Rain Souza MD Work Phone: [facility] Start: 01-17-2024 End: 01-17-2024 ambulatory MCKAYLA AICHHOLZ Not Available Start: 11-15-2023 End: 11-15-2023 ambulatory MCKAYLA AICHHOLZ Not Available Start: 11-14-2023 End: 11-14-2023 ambulatory [facility] Start: 11-01-2023 End: 11-01-2023 ambulatory MCKAYLA AICHHOLZ Not Available Start: 09-27-2023 End: 09-27-2023 ambulatory MCKAYLA AICHHOLZ Not Available Start: 08-17-2023 Refill Mckayla Aichholz [employer] Work Phone: [facility] Comment on above: Vaginal yeast infect ion (Primary Dx) Start: 08-14-2023 Refill Mckayla Aichholz [employer] Work Phone: [facility] Comment on above: Type 2 diabetes asiya itus with unspecified complications ([facility]); Edema, unspecified; Edema Start: 12-05-2022 ambulatory NARENDRANATH LAKSHMIPATHY . Facility:[facility] Start: 12-05-2022 End: 12-06-2022 Evaluation and management of inpatient UMBERTO ALONDRA . Facility:[facility] Start: 11-23-2022 End: 11-23-2022 ambulatory COPS MCKAYLA AICHHOLZ Facility:H1 Start: 11-22-2022 End: 11-23-2022 ambulatory COPS MCKAYLA AICHHOLZ Facility:[facility] Start: 11-17-2022 End: 11-18-2022 ambulatory SUBHASH GASPAR . Facility:[facility]1 Start: 11-15-2022 End: 11-15-2022 Patient encounter procedure SARAH VEGA [facility] Start: 10-05-2022 End: 10-05-2022 ambulatory MARIANO LOZANO . Facility:[facility]1 Start: 09-21-2022 End: 09-21-2022 ambulatory COPS MCKAYLA AICHHOLZ Facility:[facility]1 Start: 09-14-2022 ambulatory RAFAEL [...] 03-08-2022 End: 03-08-2022 ambulatory Stephanie Tico Other [facility] Other Start: 03-08-2022 Office outpatient vi sit 15 minutes Stephanie Tico [facility] Start: 03-03-2022 End: 03-04-2022 ambulatory COPS MCKAYLA WAN Facility:[facility]1 Start: 02-20-2022 End: 02-20-2022 ambulatory Stephanie Tico Other [facility] Other Start: 02-20-2022 Office outpatient ne w 45 minutes Stephanie Tico [facility] Start: 02-06-2022 End: 02-06-2022 Patient encounter procedure Elbert ARAUZ [facility] Start: 01-19-2022 End: 01-20-2022 ambulatory GIL VALENZUELA . Facility:[facility]1 Start: 12-24-2021 End: 12-24-2021 ambulatory OLE RAMIREZ Facility:[facility]1 Start: 08-26-2020 End: 09-10-2020 Patient encounter procedure VITHAL SHENDGE Facility:[facility] Start: 05-28-2020 Patient encounter status Robin Hudson MD Work Phone: [facility] Work Phone: Start: 10-30-2019 End: 10-30-2019 Emergency department patient visit JAMES Reis [facility] Start: 10-30-2019 End: 10-30-2019 Emergency department patient visit James Benavidez [facility] Start: 11-02-2016 Preoperative state Stephanie Tico Other [facility] Other Procedures Date Procedure Procedure Detail Performing Clinician Start: 05-27-2024 Gluc bld gluc mntr d ev cleared fda spec home use Rain Souza MD Work Phone: Start: 05-12-2024 [facility] CREATININE Generic External Data Provider Start: 12-14-2023 Mammography Rain urena MD Work Phone: Start: 11-22-2022 Mammography Mckayla clifford NP Work Phone: Start: 10-08-2015 Microscopic observat ion [Identifier] in Cervix by Cyto stain Mckayla Blas GOLF COACH Work Phone: H/O: hysterectomy Elbert LARA Laparoscopic cholecystectomy Elbert ARAUZ Operative procedure on foot Elbert ARAUZ Plan of Treatment Date Care Activity Detail Author Start: 08-03-2025 Screening for malign ant neoplasm of colon [facility] Start: 07-14-2025 Glaucoma screening Diabetes: R etinopathy Screening [facility] Start: 05-13-2025 Glaucoma screening Diabetes: R etinopathy Screening [facility] Start: 01-16-2025 Medicare Annual Well ness (AWV) Medicare Annual Wellness (AWV) [facility] Start: 12-13-2024 Screening for malign ant neoplasm of breast Mammogram [facility] Start: 11-11-2024 Urine screening for protein Diabetes: Urine Protein Screening [facility] Start: 08-27-2024 End: 08-27-2024 Patient encounter procedure 08/27/2024 5:30 PM EST Office Visit [facility] [address] [place] [address] Mckayla Blas, GOLF COACH [address] [place] [address] [facility] Start: 08-27-2024 Hemoglobin A1c measurement Diabetes: Hemoglobin A1C [facility] Start: 08-26-2024 End: 08-26-2024 Patient encounter procedure 08/26/2024 10:30 AM EST Office Visit [facility] [address] [place] [address] Rain Souza MD [address] [place] [address] [facility] Start: 07-14-2024 End: 07-14-2024 Patient encounter procedure 07/14/2024 6:30 PM EST Office Visit [facility] [address] [place] [address] Mckayla Blas, GOLF COACH [address] [place] [address] [facility] Start: 07-14-2024 End: 07-14-2024 Patient encounter procedure 07/14/2024 10:10 AM EST Office Visit [facility] [address] [place] [address] Rain Souza MD [address] [place] [address] [facility] Start: 06-19-2024 End: 06-19-2024 Patient encounter procedure 06/19/2024 11:10 AM EST Office Visit [facility] [address] [place] [phone] Jonathan Hudson MD [address], [address] [address] [facility] Start: 06-06-2024 Influenza vaccination Influenza Vacc ine (#1) [facility] Comment on above: Postponed from 03/09 (Patient Refused) Start: 05-27-2024 End: 05-27-2024 Patient encounter procedure 05/27/2024 9:50 AM EST Office Visit [facility] [address] [place] [address] Rain Souza MD [address] [place] [address] [facility] Start: 05-17-2024 Hemoglobin A1c measurement Diabetes: Hemoglobin A1C [facility] Start: 05-15-2024 End: 05-15-2024 Chart abstracting 05/15/2024 Abstract [facility] [address] [place] [address] Rain Souza MD [address] [place] [address] [facility] Start: 05-15-2024 End: 05-15-2024 Patient encounter procedure 05/15/2024 11:20 AM EST Office Visit [facility] [address] [place] [address] Rain Souza MD [address] [place] [address] [facility] Start: 04-17-2024 End: 04-17-2024 Patient encounter procedure 04/17/2024 3:40 PM EDT Office Visit [facility] [address] [place] [address] Mckayla Blas, SILVANO [address] [place] [id number] [facility] Start: 04-14-2024 End: 04-14-2024 Patient encounter procedure 04/14/2024 11:00 AM EDT Office [facility] [address] [place] [address] Mckayla Blas, SILVANO [address] [place] [phone] Arrived [facility] Comment on above: Arrived Start: 03-09-2024 COVID-19 Vaccine ( season) COVID-19 Vaccine () [facility] Start: 03-09-2024 Influenza vaccination [facility] Start: 02-19-2024 Hemoglobin A1c measurement Diabetes: Hemoglobin A1C [facility] Start: 11-24-2023 Urine screening for protein Diabetes: Urine Protein Screening [facility] Start: 11-23-2023 Screening for malign ant neoplasm of breast Mammogram [facility] Start: 10-15-2023 End: 10-15-2023 Patient encounter procedure 10/15/2023 4:30 PM EDT Office Visit [facility] [address] [place] [address] Mckayla Blas, SILVANO [address] [place] [address] [facility] Start: 08-09-2023 Hemoglobin A1c measurement Diabetes: Hemoglobin A1C [facility] Start: 05-27-2021 Glaucoma screening Diabetes: R etinopathy Screening [facility] Start: 2020 Administration of varicella zoster vaccine Zoster (Shingles) Vaccine (1 of 2) [facility] Start: 03-09-2020 Influenza vaccination Flu vacc ine (Season Ended) [place] Start: 10-07-2018 Screening for malign ant neoplasm of cervix [facility] Start: 2010 Lipid panel Lipid screen Shantelle Camacho [place], [place] Start: 2000 Screening for malign ant neoplasm of cervix HPV/Cotest [facility] Start: 1991 Screening for malign ant neoplasm of cervix [facility] Start: 1989 DTaP,Tdap and Td Vaccines (1 - Tdap) DTaP,Tdap and Td Vaccines (1 - Tdap) [facility] Start: 1989 DTaP/Tdap/Td vaccine (1 - Tdap) DTaP/Tdap/Td vaccine (1 - Tdap) [place] Start: 1988 Adult BMI Follow Up Plan Adult BMI Follow Up Plan [facility] Start: 1988 Adult BMI Screening Adult BMI Screen ing [facility] Start: 1985 HIV screening HIV screen Shantelle Alvarado [place], [place] Start: 1982 Depression Screening Depression Scre ening [facility] Start: 1982 Tobacco Screening Tobacco Screening [facility] Start: 1970 Medicare Annual Well ness (AWV) Medicare Annual Wellness (AWV) [facility] Start: 1970 Screening for malign ant neoplasm of colon [facility] Immunizations Immunization Date Immunization Notes Care Provider Fa [facility] 05-18-2023 influenza, injectabl e, quadrivalent, contains preservative Mckayla Blas NP Work Phone: [facility] 05-18-2023 influenza virus vacc ine, unspecified formulation Rain Souza MD Work Phone: [facility] 07-19-2021 SARS-CoV-2 (COVID-19 ) mRNA BNT-162b2 audrey VEGA [facility] 10-28-2020 SARS-CoV-2 (COVID-19 ) mRNA BNT-162b2 audrey VEGA [facility] 10-08-2020 SARS-CoV-2 (COVID-19 ) mRNA BNT-162b2 vax SARAH VEGA [facility] 04-16-2017 influenza virus vacc ine, H5N1, A/ (national stockpile) Mckayla Blas GOLF COACH Work Phone: [facility] 04-16-2017 influenza virus vacc ine, unspecified formulation Rain Souza MD Work Phone: [facility] 04-16-2017 influenza, unspecifi ed formulation Elbert ARAUZ [facility] 04-16-2017 pneumococcal polysaccharide vaccine, 23 valent Rain Souza MD Work Phone: [facility] 05-10-2016 influenza virus vacc ine, H5N1, A/ (national stockpile) Mckayla Blas GOLF COACH Work Phone: [facility] 05-10-2016 influenza virus vacc ine, unspecified formulation Rain Souza MD Work Phone: [facility] 05-10-2016 influenza, unspecifi ed formulation Elbert ARAUZ [facility] 05-02-2013 influenza virus vacc ine, whole virus Rain Souza MD Work Phone: [facility] 05-02-2013 influenza, injectabl e, quadrivalent, contains preservative Mckayla Blas NP Work Phone: [facility] 05-02-2013 influenza, whole Elbert ARAMBULA [facility] 01-29-1998 measles, mumps and rubella virus vaccine Rain Souza MD Work Phone: [facility] Payers Date Payer Category Payer Medicare (Managed Care) [employer] [id number] 2023 Private Health Insurance [facility] [id number] 2023-Present [address] [address] [place] [address] [id number] 2023 Medicare [id number] 2023 Private Health Insurance [id number] 2018 Medicaid [id number]. [id number] 2017 Medicare [id number] [id number]. [id number] 2017 Medicare O [employer] MEDICARE [id number] 1970 Unknown [id number] 2.16.840.1.754652.3.579. 2.647 1970 Unknown [id number] 2.16.840.1.816280.3.579. 2.593 1970 Unknown [id number] 2.16.840.1.479781.3.579. 2.593 1970 Unknown [id number] 2.16.840.1.235435.3.579. 2.593 1970 Unknown [id number] 2.16.840.1.511560.3.579. 2.593 1970 Unknown [id number] 2.16.840.1.438903.3.579. 2.593 1970 Unknown [id number] 2.16.840.1.198473.3.579. 2.593 1970 Unknown [id number] 2.16.840.1.652800.3.579. 2.593 1970 Unknown [id number] 2.16.840.1.309996.3.579. 2.593 1970 Unknown [id number] 2.16.840.1.471714.3.579. 2.593 1970 Unknown [id number] 2.16.840.1.402669.3.579. 2.593 1970 Unknown [id number] 2.16.840.1.196455.3.579. 2.593 1970 Unknown [id number] 2.16.840.1.213203.3.579. 2.593 1970 Unknown [id number] 2.16.840.1.952913.3.579. 2.593 1970 Unknown [id number] 2.16.840.1.374887.3.579. 2.593 1970 Unknown [id number] 2.16.840.1.690266.3.579. 2.593 1970 Unknown [id number] 2.16.840.1.919329.3.579. 2.593 1970 Unknown [id number] 2.16.840.1.142181.3.579. 2.593 1970 Unknown [id number] 2.16.840.1.961615.3.579. 2.593 1970 Unknown [id number] 2.16.840.1.137651.3.579. 2.593 1970 Unknown [id number] 2.16.840.1.816366.3.579. 2.593 1970 Unknown [id number] 2.16.840.1.506164.3.579. 2.593 1970 Unknown [id number] 2.16.840.1.532992.3.579. 2.593 1970 Unknown [id number] 2.840.1.226744.3.579. 2.727 1970 Unknown [id number] .840.1.122175.3.579. 2.727 1970 Unknown [id number] 2.840.1.620392.3.579. 2.1259 1970 Unknown [id number] 2.840.1.527680.3.579. 2.1259 1970 Unknown [id number] 2.840.1.833713.3.579. 2.1259 1970 Unknown [id number] 2.840.1.916704.3.579. 2.1259 1970 Unknown [id number] 2.16840.1.708591.3.579. 2.1259 1970 Unknown [id number] 2.16840.1.428310.3.579. 2.1259 1970 Unknown [id number] 2.16840.1.442323.3.579. 2.1259 1959 Medicaid [id number] 1959 Private Health Insurance [id number] 1959 Unknown [id number] ..840.1.105821.19 Social History Date Type Detail Facility Start: 02-17-2014 End: 07-10-2023 Tobacco smoking status NHIS Current every day smoker [place] Start: 02-17-1994 History of tobacco use Cigarette Smo ker [place] Start: 02-17-2014 End: 07-10-2023 Cigarettes smoked current (pack per day) - Reported [place] Start: 02-17-2014 End: 09-16-2020 Alcohol intake Current drinker of alcohol (finding) [place] Start: 02-17-2014 Alcohol Comment Rare Shantelle Monteiro [place], [place] Start: 1970 Sex Assigned At Not on file [place] Exposure to SARS-CoV -2 (event) Unable to assess [place] Start: 02-06-2022 Tobacco smoking status Smoker (findi ng) [facility] Start: 07-10-2023 End: 01-17-2024 Sex Assigned At Female [facility] Start: 11-15-2022 End: 06-11-2024 Tobacco smoking status Heavy tobacco smoker (finding) [facility] Start: 09-25-2018 End: 07-10-2023 Tobacco use and exposure Smokeless tobacco non-user [facility] Start: 07-10-2023 End: 07-14-2024 Alcohol intake Lifetime non-drinker (finding) [facility] Within the last year , have you been afraid of your partner or ex-partner? No [facility] Do you belong to any clubs or organizations such as mormon groups, unions, fraternal or athletic groups, or [...] [facility] Start: 09-25-2018 Alcohol Comment [facility] Start: 02-11-2015 Sex Female (finding) [facility] Medical Equipment Procedure Code Equipment Code Equipment Origin al Text Equipment Identifier Dates [id number] Start: 01-18-2024 USE TO TEST BLOO D SUGAR 4 TIMES DAILY [id number] Start: 07-07-2024 Functional Status Date Assessment Result Facility 06-11-2024 Functional Status N/A [facility] 11-15-2022 Functional Status N/A [facility] 02-06-2022 Functional Status N/A [facility] Clinical Notes 01-19-2022 to 08-08-2024 Mckayla Blas, GOLF COACH - 07/14/2024 7:36 PM ESTMckayla Blas, GOLF COACH - 07/14/2024 7:33 PM Ed Blas NP - 07/14/2024 7:32 PM ESTMckayla Blas, GOLF COACH - 07/14/2024 7:31 PM EST Note Date & Type Note Facility 08-08-2024 Note [facility] Subjective Mitzi Macias is a [...] syndrome (CMS/HCC) Decreased functional mobility Diabetic neuropathy ([facility]/HCC) Easy bruising GERD (gastroesophageal reflux disease) Gout Headache Hyperlipidemia Hypertension Insomnia Kidney stone Left flank pain Mixed incontinence Class 3 severe obesity with serious comorbidity and body mass index (BMI) of 50.0 to 59.9 in adult ([facility]/HCC) Non-seasonal allergic rhinitis Obstructive sleep apnea Other chronic pain PAD (peripheral artery disease) ([facility]) Pneumonia Encounter for screening mammogram for malignant neoplasm of breast Pulmonary hypertension ([facility]/HCC) Radiculopathy, lumbar region Current smoker Type 2 diabetes mellitus with complication, with long-term current use of insulin ([facility]/HCC) Unilateral primary osteoarthritis, right hip Vaginal yeast infection Venous insufficiency Bad odor of urine Critical limb ischemia of right lower extremity ([facility]/HCC) Hyperpigmentation of skin 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 2 diabetes mellitus ([facility]/HCC) Myelolipoma of adrenal gland Venous ulcer of right leg ([facility]) HPI Patient was has history [...] Diagnosis Date COPD (chronic obstructive pulmonary disease) ([facility]/HCC) Diabetes mellitus ([facility]) Hyperlipidemia Hypertension Sleep apnea Past [...] , Rfl: ergocalciferol (Vitamin D-2) 1.25 MG (95861 Units) capsule, Take 1.25 mg by mouth., [...] and at bedtime., Disp: , Rfl: HYDROcodone-acetaminophen ([place]) 5-325 mg tablet, TAKE 1 TABLET BY [...] TWICE DAILY, Disp: (more content not included)... [facility] 07-14-2024 History of Present illness Narrative Associated [...] or chew. ergocalciferol (Vitamin D2) 1.25 MG (39733 UT) capsule TAKE 1 CAPSULE BY MOUTH ONE TIME PER WEEK furosemide (LASIX) 40 mg, Oral, Daily furosemide (LASIX) 20 mg, Oral, Daily PRN, Take in the afternoon as needed hydrALAZINE (APRESOLINE) 25 mg, Oral, 2 times daily HYDROcodone-acetaminophen ([place]) 5-325 MG tablet 1 tablet, 3 times [...] CT Albuminuria 09/17/2023 Angiomyolipoma Anxiety and depression ([facility]) 07/10/2023 Asthma ([facility]) 07/10/2023 Body mass index (BMI) 50.0-59.9, adult ([facility]) Cellulitis of left lower extremity Cervical cancer ([facility]) 09/17/2023 Chronic pain of both knees 09/17/2023 COPD (chronic obstructive pulmonary disease) ([facility]) 07/10/2023 COPD exacerbation ([facility]) 09/17/2023 Decreased functional mobility 09/17/2023 Diabetic neuropathy ([facility]) 07/10/2023 Dietary counseling and surveillance Edema 07/10/2023 Elevated sed rate Elevated WBC count Essential (primary) hypertension ([facility]) GERD (gastroesophageal reflux disease) 09/17/2023 Hyperlipidemia ([facility]) 09/17/2023 Hypertension ([facility]) 07/10/2023 Insomnia 09/17/2023 CHCF (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 ([facility]) Lower extremity edema 09/17/2023 Mixed hyperlipidemia ([facility]) Morbid (severe) obesity due to excess calories ([facility]) Obstructive sleep apnea 07/10/2023 PAD (peripheral artery disease) ([facility]) 09/17/2023 Pancreatitis 09/17/2023 Pneumonia 09/17/2023 Proteinuria, unspecified Pulmonary hypertension ([facility]) 09/17/2023 Radiculopathy, lumbar region 09/17/2023 Tobacco user 09/17/2023 Type 2 diabetes mellitus with complication, with long-term current use of insulin ([facility]) 07/10/2023 Unilateral primary osteoarthritis, right hip 09/17/2023 [...] List Items Addressed This Visit Diabetic neuropathy ([facility]) Continue with tristan EAST reviewed Fu in 3 months COPD (chronic obstructive pulmonary disease) ([facility]) Stable at this time, no changes in meds Encouraged smoking cessation Cont with dr Yañez Hypertension ([facility]) - Primary Please check blood pressure daily and record DASH diet Limit caffeine Take medication as directed Contact office if chest pain, pressure, dizziness, shortness of breath, swelling legs Recommend slow position changes Current meds: hydralazine, lisinopril, Type 2 diabetes mellitus with complication, with long-term current use of insulin ([facility]) Check blood sugars daily, notify [...] take over prescribing PAD (peripheral artery disease) ([facility]) Asa, statin Quit smoking BP [...] of the risks of continued smoking: stroke, MT, all forms of cancer, lung disease, and [...] 1 cm to 4 cm in diameter ([facility]) Continue with Urology Kidney stone Continue with Urology Non-seasonal allergic rhinitis Relevant Medications cetirizine (ZyrTEC) 10 MG tablet Critical limb ischemia of right lower extremity ([facility]) Saw vascular, does have narrowing in arteries in legs, and thus the wounds not healing At this point they strongly urge to quit smoking or risk limb amputation Cont asa and statin Also good blood pressure and sugar control Venous ulcer of right leg ([facility]) Encounter for smoking cessation counseling Relevant Medications nicotine (Nicoderm, Step 1) 21 MG/24HR patch Other Visit Diagnoses Type 2 diabetes mellitus with unspecified complications ([facility]) Quitting smokinppd, chantix not helped, ] Face time with pt, spent 15 minutes with pt Associated Problem(s): Tobacco user The patient has been advised of the risks of continued smoking: stroke, MT, all forms of cancer, lung disease, and [...] complication, with long-term current use of insulin ([facility]) Check blood sugars daily, notify [...] in 3 months documented in this encounter [facility] 06-19-2024 Evaluation + Plan note Associated Problem(s): Venous ulcer of right leg (CMS-HCC) Continue wound care. We will get venous reflux ultrasound. [facility] 06-19-2024 Evaluation + Plan note Associated Problem(s): Smoking Counseled on smoking cessation for at least 3 minutes. She is willing to quit. [facility] 06-19-2024 Miscellaneous Notes Associated Problem(s): Venous ulcer of right leg (CMS-HCC) Continue wound care. We will get venous reflux ultrasound. Associated Problem(s): Smoking Counseled on smoking cessation for at least 3 minutes. She is willing to quit. Associated Problem(s): Critical limb ischemia of right lower extremity (CMS-HCC) We will get PVR and CTA with runoff documented in this encounter [facility] 06-19-2024 Evaluation + Plan note Associated Problem(s): Critical limb ischemia of right lower extremity (CMS-HCC) We will get PVR and CTA with runoff [facility] 06-19-2024 History of Present illness Narrative Images from the original note were not included. To: MCKAYLA BLAS, TELEVISION SPECIALIST-COPS HPI: Mitzi Macias is a 53 y.o. [...] left leg COPD (chronic obstructive pulmonary disease) ([facility]) Depression Diabetes mellitus ([facility]) Diabetes mellitus with neuropathy ([facility]) Edema GERD (gastroesophageal reflux disease) Hypertension Morbid obesity ([facility]) Morbid obesity ([facility]) Pneumonia Past Surgical History: Past Surgical History: [...] Resource Strain: Low Risk (07/10/2023) Received from [facility] Overall Financial Resource Strain (CARDIA) Difficulty of Paying Living Expenses: Not hard at all Food Insecurity: No Food Insecurity (07/10/2023) Received from [facility] Hunger Vital Sign Worried About Running Out of Food in the Last Year: Never true Ran Out of Food in the Last Year: Never true Transportation Needs: No Transportation Needs (07/10/2023) Received from [facility] PRAPARE - Transportation Lack of Transportation (Medical): No Lack of Transportation (Non-Medical): No Physical Activity: Insufficiently Active (07/10/2023) Received from [facility] Exercise Vital Sign Days of Exercise per Week: 7 days Minutes of Exercise per Session: 10 min Stress: No Stress Concern Present (07/10/2023) Received from [facility] [place] [employer] - Occupational Stress Questionnaire Feeling of Stress : Only a little Social Connections: Socially Integrated (07/10/2023) Received from [facility] Social Connection and Isolation Panel [NHANES] Frequency of Communication with Friends and Family: Twice a week Frequency of Social Gatherings with Friends and Family: Twice a week Attends Christian Services: 1 to 4 times per year Active Member of Clubs or Organizations: Yes Attends Club or Organization Meetings: 1 to 4 times per year Marital Status: Interpersonal Safety: Not At Risk (07/10/2023) Received from [facility] Humiliation, Afraid, Rape, and Kick questionnaire Fear of Current or Ex-Partner: No Emotionally Abused: No Physically Abused: No Sexually Abused: No Housing Instability: Unknown (07/10/2023) Received from [facility] Housing Stability Vital Sign Unable to [...] and Plan: Problem List BMI 50.0-59.9, adult ([facility]) - Primary Smoking Current Assessment & Plan Counseled on smoking cessation for at least 3 minutes. She is willing to quit. Morbid obesity (CMS-HCC) Mitzi was seen today for non-par with [facility] dual complete without oon benefits- need i. Diagnoses and all orders for this visit: BMI 50.0-59.9, adult ([facility]) Morbid obesity ([facility]-HCC) Smoking Jonathan Hudson MD, SOPHIE, RPVI, FSVS, FACS [facility] This note was created with the assistance of a speech recognition program. While intending to generate a timely document that accurately reflects the content of the visit, no guarantee can be provided that every grammatical or spelling mistake has been or will be identified or corrected. Thank you for your understanding. documented in this encounter [facility] 06-13-2024 Miscellaneous Notes LMVM for patient to bring insurance card to appt so we can see if we are able to see her or she can be proactive and call her insurance before her appt to make sure we are either in network or that she has out of network benefit. documented in this encounter [facility] 06-13-2024 Telephone encounter Note LMVM for patient to bring insurance card to appt so we can see if we are able to see her or she can be proactive and call her insurance before her appt to make sure we are either in network or that she has out of network benefit. [facility] 06-11-2024 Hospital Discharge instructions Patient Education [...] require a prescription. You can also purchase pben-spg-bwghoxx medicines. Medicines may have nicotine in them [...] and encouragement. Call telephone quitlines, such as 2-959-TKIP-NOW, reach out to support groups, or work [...] provider. Document Revised: 06/16/2022 Document Reviewed: 06/16/2022 [employer] Patient Education 2023 MogiMe. 06/11/2024 10:39:22 Dietary Guidelines to Help Prevent [...] include: ?8 oz (237 mL) of milk, xccxunv-pvvupgjypfyj-jyiwo milk, and calcium-fortifiedfruit juice. Calcium-fortified means that [...] ?Spinach (cooked), rhubarb, beets, sweet potatoes, and Trinidadian chard. ?Peanuts. ?Potato chips, israeli fries, and baked potatoes with skin on. ?Nuts and nut products. ?Chocolate. If you regularly take a diuretic medicine, make sure to eat at least 1 or 2 servings of fruits or vegetables that are high in potassium each day. These include: ?Avocado. ?Banana. ?Bullitt, prune, carrot, or tomato juice. ?Baked potato. [...] magnesium, fish oil, or vitamin B6. Take kxpp-dzq-dxbxcwi and prescription medicines only as told by [...] Lasagna. Frozen meals. Potato chips. Citizen [place] fries. The items listed above may not [...] provider. Document Revised: 10/05/2022 Document Reviewed: 10/05/2022 [employer] Patient Education 2023 MogiMe. Follow Up Care 05/06/2024 08:24:56 With:REGLA PHIPPS, Elbert Joya, URL Address: [facility] [address], [place] [address]- When: Unknown [facility] 05-27-2024 History of Present illness Narrative [...] or chew. ergocalciferol (Vitamin D2) 1.25 MG (56873 UT) capsule TAKE 1 CAPSULE BY MOUTH ONE TIME PER WEEK furosemide (LASIX) 20 mg, Oral, Daily PRN, Take in the afternoon as needed furosemide (LASIX) 40 mg, Oral, Daily Glucose Blood (ACCU-CHEK JAQUI PLUS ) 4 times daily hydrALAZINE (APRESOLINE) 25 mg, Oral, 2 times daily HYDROcodone-acetaminophen ([place]) 5-325 MG tablet 1 tablet, 3 times [...] CT Albuminuria 09/17/2023 Angiomyolipoma Anxiety and depression ([facility]) 07/10/2023 Asthma ([facility]) 07/10/2023 Body mass index (BMI) 50.0-59.9, adult ([facility]) Cellulitis of left lower extremity Cervical cancer ([facility]) 09/17/2023 Chronic pain of both knees 09/17/2023 COPD (chronic obstructive pulmonary disease) ([facility]) 07/10/2023 COPD exacerbation ([facility]) 09/17/2023 Decreased functional mobility 09/17/2023 Diabetic neuropathy ([facility]) 07/10/2023 Dietary counseling and surveillance Edema 07/10/2023 Elevated sed rate Elevated WBC count GERD (gastroesophageal reflux disease) 09/17/2023 Hyperlipidemia ([facility]) 09/17/2023 Hypertension ([facility]) 07/10/2023 Insomnia 09/17/2023 CHCF (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 ([facility]) Lower extremity edema 09/17/2023 Morbid (severe) obesity due to excess calories ([facility]) Obstructive sleep apnea 07/10/2023 PAD (peripheral artery disease) ([facility]) 09/17/2023 Pancreatitis 09/17/2023 Pneumonia 09/17/2023 Proteinuria, unspecified Pulmonary hypertension ([facility]) 09/17/2023 Radiculopathy, lumbar region 09/17/2023 Tobacco user 09/17/2023 Type 2 diabetes mellitus with complication, with long-term current use of insulin ([facility]) 07/10/2023 Unilateral primary osteoarthritis, right [...] hyperglycemia, with long-term current use of insulin ([facility]) - POCT glucose manually resulted - POCT glycosylated hemoglobin (Hb A1C) docked device We will continue with Lantus 58, lispro 02/16/12 according to meal size, Mounjaro 15 mg once weekly, Farxiga 5 mg once a day Encounter for dietary consultation Vitamin D deficiency Primary hypertension ([facility]) To follow with her PCP Insulin long-term use ([facility]) Hyperlipemia, mixed ([facility]) Continue with Zocor 10 mg once daily Microalbuminuria Class 3 severe obesity due to excess calories with serious comorbidity and body mass index (BMI) of 50.0 to 59.9 in adult ([facility]) Diet and exercise reviewed with the patient Follow up in about 3 months (around 08/27/2024). documented in this encounter [facility] 04-14-2024 History of Present illness Narrative Associated Problem(s): Hyperpigmentation of skin Will try cerevue ointment to see if helps Associated Problem(s): Tobacco user Urged to quit Associated Problem(s): Type 2 diabetes mellitus with complication, with long-term current use of insulin ([facility]) Check blood sugars daily, follow [...] with dr Yañez Associated Problem(s): Diabetic neuropathy ([facility]) Continue with tristan EAST reviewed [...] being taken. She does not see a oven drier tender.Eye exam is not current. Hypertension This is [...] or chew. ergocalciferol (Vitamin D2) 1.25 MG (63420 UT) capsule TAKE 1 CAPSULE BY MOUTH ONE TIME PER WEEK furosemide (LASIX) 20 mg, Oral, Daily PRN, Take in the afternoon as needed furosemide (LASIX) 40 mg, Oral, Daily Glucose Blood (ACCU-CHEK JAQUI PLUS ) 4 times daily HumaLOG KWIKPEN 100 UNIT/ML injection Subcutaneous hydrALAZINE (APRESOLINE) 25 mg, Oral, 2 times daily HYDROcodone-acetaminophen ([place]) 5-325 MG tablet 1 tablet, 3 times [...] CT Albuminuria 09/17/2023 Angiomyolipoma Anxiety and depression ([facility]) 07/10/2023 Asthma ([facility]) 07/10/2023 Cellulitis of left lower extremity Cervical cancer ([facility]) 09/17/2023 Chronic pain of both knees 09/17/2023 COPD (chronic obstructive pulmonary disease) ([facility]) 07/10/2023 COPD exacerbation ([facility]) 09/17/2023 Decreased functional mobility 09/17/2023 Diabetic neuropathy ([facility]) 07/10/2023 Edema 07/10/2023 Elevated sed rate Elevated WBC count GERD (gastroesophageal reflux disease) 09/17/2023 Hyperlipidemia ([facility]) 09/17/2023 Hypertension ([facility]) 07/10/2023 Insomnia 09/17/2023 Lower extremity edema 09/17/2023 Obstructive sleep apnea 07/10/2023 PAD (peripheral artery disease) ([facility]) 09/17/2023 Pancreatitis 09/17/2023 Pneumonia 09/17/2023 Pulmonary hypertension ([facility]) 09/17/2023 Radiculopathy, lumbar region 09/17/2023 Tobacco user 09/17/2023 Type 2 diabetes mellitus with complication, with long-term current use of insulin ([facility]) 07/10/2023 Unilateral primary osteoarthritis, right hip 09/17/2023 [...] List Items Addressed This Visit Diabetic neuropathy ([facility]) Continue with lyrica OARRS reviewed Fu in 3 months Relevant Medications pregabalin (Lyrica) 300 MG capsule COPD (chronic obstructive pulmonary disease) ([facility]) - Primary Stable at this time, no changes in meds Encouraged smoking cessation Cont with dr Yañez Hypertension ([facility]) Stable on current meds Refill meds Relevant Medications hydrALAZINE (Apresoline) 25 MG tablet lisinopril 20 MG tablet Type 2 diabetes mellitus with complication, with long-term current use of insulin ([facility]) Check blood sugars daily, follow [...] 81 MG chewable tablet Anxiety and depression ([facility]) Relevant Medications DULoxetine (Cymbalta) [address] capsule Bilateral lower extremity edema Stable on current meds Insomnia Relevant Medications amitriptyline (Elavil) 25 MG tablet Tobacco user Urged to quit Non-seasonal allergic rhinitis Relevant Medications cetirizine (ZyrTEC) 10 MG tablet Hyperpigmentation of skin Will try cerevue ointment to see if helps Other Visit Diagnoses Type 2 diabetes mellitus with unspecified complications ([facility]) Relevant Medications dapagliflozin (Farxiga) 10 MG Gastro-esophageal reflux disease without esophagitis Relevant Medications omeprazole (PriLOSEC) [address] capsule Edema, unspecified Relevant Medications potassium chloride ER (Micro-K) 10 MEQ ER capsule Edema Relevant Medications potassium chloride ER (Micro-K) 10 MEQ ER capsule Chronic obstructive pulmonary disease, unspecified ([facility]) Relevant Medications Roflumilast 500 MCG tablet documented in this encounter [facility] 11-14-2023 Note [facility] Subjective Mitzi Macias is a 53 y.o. year old female being seen as new patient to establish care. Ref from Mckayla Blas CNP for pulmonary hypertension. She had echo in Aug 2023 while inpatient at [facility] for pneumonia and COPD exacerbation. Denies [...] was admitted in early 2023 to the [facility] with hypoxemia and treated as COPD [...] wheelchair Skin: Gene (more content not included)... [facility] 11-15-2022 Hospital Discharge instructions Patient [...] include: ?8 oz (237 mL) of milk, odcotmd-zwqfpkkedmtc-yjgle milk, and calcium-fortifiedfruit juice. Calcium-fortified means that [...] ?Spinach (cooked), rhubarb, beets, sweet potatoes, and Trinidadian chard. ?Peanuts. ?Potato chips, israeli fries, and baked potatoes with skin on. ?Nuts and nut products. ?Chocolate. If you regularly take a diuretic medicine, make sure to eat at least 1 or 2 servings of fruits or vegetables that are high in potassium each day. These include: ?Avocado. ?Banana. ?Bullitt, prune, carrot, or tomato juice. ?Baked potato. [...] magnesium, fish oil, or vitamin B6. Take lhma-ciu-ztyixyf and prescription medicines only as told by [...] Lasagna. Frozen meals. Potato chips. [place] fries. The items listed above may not [...] provider. Document Revised: 03/06/2022 Document Reviewed: 03/06/2022 [employer] Interactive Patient Education 2022 MogiMe. Follow Up Care 02/06/2022 11:44:09 With:SILVIA HOWELL, SARAH Webb, URL Address: [address] [place] [address] When: Unknown [facility] 08-24-2022 Note CONSULTATION CONSULTATION DATE: 08/24/2022 [...] We maintain her on pain medication with [place] 5/325 t.i.d., diclofenac 75 mg b.i.d. Her [...] her at this point. A refill for [place] 5/325 t.i.d. and diclofenac 75 mg b.i.d. will be sent to the pharmacy. Vitamin compliance and nutrition were discussed and enforced. I did highly encourage her to use exercise bands to increase the strength in her lower extremities. We will see her in three months' time, unless otherwise indicated, and patient agrees. [facility] 05-11-2022 Note CONSULTATION CONSULTATION DATE: 05/11/2022 [...] 150. Medications include Lyrica 300 mg b.i.d., [place] 5/325 t.i.d., diclofenac 75 mg b.i.d. and [...] her medications today. We will maintain Lyrica, [place] and diclofenac at the set dose and frequency. We will follow-up in the clinic in three months' time. The patient is in agreement to this. Vitamin importance and nutrition were discussed. [facility] 04-20-2022 Note CONSULTATION CONSULTATION DATE: 04/20/2022 [...] medications include Tylenol, Lyrica 300 mg b.i.d., [place] 5/325 t.i.d., amitriptyline, diclofenac and duloxetine. Patient's [...] be followed up in the clinic. [facility] 03-08-2022 Evaluation note Encounter Date Diagnosis [...] to the DANIEL. Thrombocytopenia is unclear etiology. [facility] 08-15-2022 Evaluation note* Encounter Date Diagnosis [...] follow with Dr. Souza and Dr. Arauz. [facility] 08-01-2022 Hospital Discharge instructions Patient Education [...] fried and sweet foods. General instructions Take jumu-bhk-ewsppst and prescription medicines only as told by [...] 04/21/2010 Document Revised: 10/16/2019 Document Reviewed: 07/11/2018 [employer] Interactive Patient Education 2020 MogiMe. Follow Up Care 01/05/2022 12:02:03 With:REGLA PHIPPS, Elbert Joya, URL Address: [facility] [address], [place] [address] [phone] When:Within 6 Month(s) Comments:w/ repeat CT A/P [facility] 07-14-2022 NoteCONSULTATION PROCEDURE DATE: 01/19/2022 PRE [...] and the patient tolerated it well. [facility] Signed and Approved by: GIL VALENZUELA . 01/27/2022 14:15:00[facility]07-14-2022 NoteCONSULTATION CONSULTATION DATE: 01/19/2022 This [...] today. Medications include Lyrica 300 mg b.i.d., [place] 5/325 t.i.d., diclofenac 75 mg b.i.d. and [...] three months' time unless otherwise indicated. [facility] Signed and Approved by: GIL VALENZUELA . 01/27/2022 14:[facility]00[facility] Future Appointments Appointment Date:08/14/2022 09:15:00 AM Scheduled Provider:Elbert ARAUZ MD Location:[facility] Appointment Type:URO Office Visit [facility] evaluation + Plan note Future Appointments Appointment Date:04/22/2024 10:00:00 AM Scheduled Provider:SARAH VEGA PA-C Location:[facility] Appointment Type:URO Office Visit [facility] evaluation note* Diagnosis Type 2 diabetes mellitus with unspecified complications ([facility]) Edema, unspecified Edema [facility] Diagnosis Vaginal yeast infection- Primary Candidiasis of vulva and vagina [facility] Diagnosis Primary hypertension ([facility]/HCC)- Primary Unspecified essential hypertension Insomnia Insomnia, unspecified Type 2 diabetes mellitus with complication, with long-term current use of insulin ([facility]) Non-seasonal allergic rhinitis, unspecified trigger Type 2 diabetes mellitus with unspecified complications ([facility]/HCC) Anxiety and depression ([facility]) Gastro-esophageal reflux disease without esophagitis Edema, unspecified Edema Diabetic polyneuropathy associated with type 2 diabetes mellitus ([facility]) Chronic obstructive pulmonary disease, unspecified [...] long-term current use of insulin ([facility]) Anxiety and depression (CMS/HCC) Bilateral [...] user Tobacco use disorder Cardiomegaly Primary hypertension ([facility]/HCC)- Primary Unspecified essential hypertension Gastroesophageal reflux [...] to 59.9 in adult, unspecified obesity type ([facility]) Encounter for subsequent annual wellness visit (AWV) in Medicare patient- Primary Type 2 diabetes mellitus with unspecified complications (CMS/HCC) Pulmonary emphysema, unspecified emphysema type (CMS/HCC) Moderate persistent asthma without complication (CMS/HCC) Primary hypertension ([facility]) Unspecified essential hypertension Type 2 diabetes mellitus with complication, with long-term current use of insulin ([facility]) Class 3 severe obesity with [...] complication, with long-term current use of insulin ([facility]) Non-seasonal allergic rhinitis, unspecified trigger Type 2 diabetes mellitus with unspecified complications ([facility]) Anxiety and depression ([facility]) Gastro-esophageal reflux disease without esophagitis Edema, unspecified Edema Diabetic polyneuropathy associated with type 2 diabetes mellitus ([facility]) Chronic obstructive pulmonary disease, unspecified ([facility]) Pulmonary emphysema, unspecified emphysema type ([facility]) Bilateral lower extremity edema Tobacco user Tobacco use disorder Hyperpigmentation of skin Other dyschromia Type 2 diabetes mellitus with hyperglycemia, with long-term current use of insulin ([facility])- Primary Encounter for dietary consultation Vitamin D deficiency Primary hypertension ([facility]) Unspecified essential hypertension Insulin long-term use ([facility]) Encounter for long-term (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 Hyperlipemia, mixed ([facility]) Mixed hyperlipidemia Microalbuminuria Proteinuria Class 3 severe obesity due to excess calories with serious comorbidity and body mass index (BMI) of 50.0 to 59.9 in adult ([facility]) documented in [facility] encounter [facility]* Diagnosis BMI 50.0-59.9, adult ([facility])- Primary Morbid obesity ([facility]) Morbid obesity Smoking Tobacco use disorder [facility] Diagnosis Hyperlipidemia, unspecified ([facility]) Bilateral lower extremity edema [facility] Diagnosis Vitamin D deficiency, unspecified documented [facility]* Diagnosis Obstructive sleep apnea- Primary Obstructive sleep apnea (adult) (pediatric) Pulmonary emphysema, unspecified emphysema type ([facility]) Primary hypertension ([facility]) Unspecified essential hypertension Type 2 diabetes mellitus with complication, with long-term current use of insulin ([facility]) Anxiety and depression ([facility]) Bilateral lower extremity edema Pulmonary emphysema, unspecified emphysema type ([facility])- Primary Primary hypertension ([facility]) Unspecified essential hypertension Class 3 severe obesity with serious comorbidity and body mass index (BMI) of 50.0 to 59.9 in adult, unspecified obesity type ([facility]) Obstructive sleep apnea Obstructive sleep apnea (adult) (pediatric) Pulmonary hypertension ([facility]) Other chronic pulmonary heart diseases Tobacco user Tobacco use disorder Cardiomegaly Primary hypertension ([facility])- Primary Unspecified essential hypertension Gastroesophageal reflux disease, [...] with type 2 diabetes mellitus ([facility]) Gout, unspecified cause, unspecified chronicity, unspecified site Non-seasonal allergic rhinitis, unspecified trigger Bilateral lower extremity edema COPD exacerbation (CMS/HCC) Obstructive chronic bronchitis with exacerbation Pulmonary emphysema, unspecified emphysema type (CMS/HCC) Venous insufficiency Unspecified venous (peripheral) insufficiency Candidiasis of breast COPD exacerbation ([facility])- Primary Obstructive chronic bronchitis with exacerbation Pulmonary hypertension (CMS/HCC) Other chronic pulmonary heart diseases Class 3 severe obesity with serious comorbidity and body mass index (BMI) of 50.0 to 59.9 in adult, unspecified obesity type ([facility]) Encounter for subsequent annual wellness visit (AWV) in Medicare patient- Primary Type 2 diabetes mellitus with unspecified complications ([facility]) Pulmonary emphysema, unspecified emphysema type ([facility]) Moderate persistent asthma without complication ([facility]) Primary hypertension ([facility]) Unspecified essential hypertension Type 2 diabetes mellitus with complication, with long-term current use of insulin ([facility]) Class 3 severe obesity with serious comorbidity and body mass index (BMI) of 50.0 to 59.9 in adult, unspecified obesity type ([facility]) Tobacco user Tobacco use disorder Other headache syndrome Malignant neoplasm of cervix uteri, unspecified (CMS/HCC) Other specified disorders of adrenal gland (CMS/HCC) Major depressive disorder, single episode, mild (HCC) (CMS/HCC) Major depressive disorder, single episode, mild 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 exposed (CMS/[facility]) Chronic respiratory failure, unspecified whether with hypoxia or hypercapnia (CMS/HCC) Disorder of adrenal gland, unspecified (CMS/HCC) Non-pressure chronic ulcer of other part of right lower leg limited to breakdown of skin (CMS/HCC) Non-recurrent acute suppurative otitis media of left ear without spontaneous rupture of tympanic membrane Primary hypertension ([facility])- Primary Unspecified essential hypertension Insomnia Insomnia, unspecified Type 2 diabetes mellitus with complication, with long-term current use of insulin ([facility]) Non-seasonal allergic rhinitis, unspecified trigger Type 2 diabetes mellitus with unspecified complications ([facility]) Anxiety and depression ([facility]) Gastro-esophageal reflux disease without esophagitis Edema, unspecified Edema Diabetic polyneuropathy associated with type 2 diabetes mellitus ([facility]) Chronic obstructive pulmonary disease, unspecified ([facility]) Pulmonary emphysema, unspecified emphysema type ([facility]) Bilateral lower extremity edema Tobacco user Tobacco use disorder Hyperpigmentation of skin Other dyschromia Bilateral lower extremity edema documented in this encounter [facility] HealthcareEvaluation note* Diagnosis Obstructive sleep apnea- Primary Obstructive sleep apnea (adult) (pediatric) Pulmonary emphysema, unspecified emphysema type ([facility]) Primary hypertension ([facility]) Unspecified essential hypertension Type 2 diabetes mellitus with complication, with long-term current use of insulin ([facility]) Anxiety and depression ([facility]) Bilateral lower extremity edema Pulmonary emphysema, unspecified emphysema type ([facility])- Primary Primary hypertension ([facility]) Unspecified essential hypertension Class 3 severe obesity with serious comorbidity and body mass index (BMI) of 50.0 to 59.9 in adult, unspecified obesity type ([facility]) Obstructive sleep apnea Obstructive sleep apnea (adult) (pediatric) Pulmonary hypertension ([facility]) Other chronic pulmonary heart diseases Tobacco user Tobacco use disorder Cardiomegaly Primary hypertension ([facility])- Primary Unspecified essential hypertension Gastroesophageal reflux disease, unspecified whether esophagitis present Type 2 diabetes mellitus with complication, with long-term current use of insulin ([facility]) Mixed hyperlipidemia ([facility]) Mixed hyperlipidemia Tobacco user Tobacco use disorder Encounter for screening mammogram for malignant neoplasm of breast Chronic obstructive pulmonary disease, unspecified ([facility]) Other specified chronic obstructive pulmonary disease ([facility]) Anxiety and depression ([facility]) Edema, unspecified Edema Hyperlipidemia, unspecified ([facility]) Diabetic polyneuropathy associated with type 2 diabetes mellitus ([facility]) Gout, unspecified cause, unspecified chronicity, unspecified site Non-seasonal allergic rhinitis, unspecified trigger Bilateral lower extremity edema COPD exacerbation ([facility]) Obstructive chronic bronchitis with exacerbation Pulmonary emphysema, unspecified emphysema type ([facility]/HCC) Venous insufficiency Unspecified venous (peripheral) insufficiency [...] mellitus (CMS/HCC) Pulmonary emphysema, unspecified emphysema type ([facility]) Critical limb ischemia of right lower extremity ([facility]) PAD (peripheral artery disease) ([facility]) Unspecified peripheral vascular disease Gastroesophageal reflux disease, unspecified whether esophagitis present Bilateral lower extremity edema Venous ulcer of right leg ([facility]) Type 2 diabetes mellitus with complication, with long-term current use of insulin ([facility]) Tobacco user Tobacco use disorder Encounter for smoking cessation counseling Kidney stone Calculus of kidney Adrenal mass 1 cm to 4 cm in diameter ([facility]) Radiculopathy, lumbar region Thoracic or lumbosacral neuritis or radiculitis, unspecified Non-seasonal allergic rhinitis, unspecified trigger Type 2 diabetes mellitus with unspecified complications ([facility]) documented in this encounter [facility] [...] History sepsis 2011 Hospitalization History SEE ABOVE Adku Other Hospital course Narrative No data available for this section [facility] Wilfredo InstructionsNot on filedocumented in this encounter [facility] SystemInstructionsNot on filedocumented in this encounter [facility] SystemProgress note No data available for this section [facility] Charlo reason for referral (narrative) , Referral to Dr. 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 Advance Directives and Living Will Power of Repair Supervisor Summary Purpose Family History No Family [...] AUTHOR AUTHOR'S ORGANIZ ATION 09/15/2020 [facility] DATE CREATED AUTHOR AUTHOR'S ORGANIZ ATION 12/19/2022 [facility] DATE CREATED AUTHOR AUTHOR'S ORGANIZ ATION 06/03/2024 [facility] DATE CREATED AUTHOR AUTHOR'S ORGANIZ ATION 07/20/2024 [facility] dical [facility] DATE CREATED AUTHOR AUTHOR'S ORGANIZ ATION 08/10/2024 [facility] Care Team (unrecognized sect ion and content) Sales Force Developer Relationship Specialty Start Date End Date Ty Amin MD PCP - General Family Medicine 01/05/23 Sales Force Developer Relationship Specialty Start Date End Date Ty Amin MD PCP - General Family Medicine 01/05/23 Sales Force Developer Relationship Specialty Start Date End Date Ty Amin MD [address] [place] [phone] PCP - General Family Medicine 09/20/23 Mckayla Blas NP [address] [place] [phone] PCP - [facility] 09/07/23 09/05/90 Mckayla Blas NP [address] [place] [address] Nurse Practitioner Family Medicine 09/20/23 Sales Force Developer Relationship Specialty Start Date End Date Ty Amin MD [address] [place] [address] PCP - General Family Medicine 09/20/23 Mckayla Blas NP [address] [place] [phone] PCP - [facility] 09/07/23 09/05/90 Mckayla Blas NP [address] [place] [phone] Nurse Practitioner Family Medicine 09/20/23 Sales Force Developer Relationship Specialty Start Date End Date Ty Amin MD [address] [place] [phone] PCP - General Family Medicine 09/20/23 Mckayla Blas NP [address] [place] [phone] [facility] 09/07/23 09/05/90 Mckayla Blas NP [address] [place] [address] Nurse Practitioner Family Medicine 09/20/23 Sales Force Developer Relationship Specialty Start Date End Date Ty Amin MD [address] [place] [phone] PCP - General Family Medicine 09/20/23 Mckayla Blas NP [address] [place] [phone] PCP - [facility] 09/07/23 09/05/90 Mckayla Blas NP [address] [place] [address] Nurse Practitioner Family Medicine 09/20/23 Sales Force Developer Relationship Specialty Start Date End Date Ty Amin MD [address] [place] [phone] PCP - General Family Medicine 09/20/23 Mckayla Blas NP [address] [place] [phone] PCP - [facility] 09/07/23 09/05/90 Mckayla Blas NP [address] [place] [address] Nurse Practitioner Family Medicine 09/20/23 Sales Force Developer Relationship Specialty Start Date End Date Mckayla Blas, TELEVISION SPECIALIST-COPS [address] [place] [address] PCP - General Nurse Practitioner 09/25/18 Sales Force Developer Relationship Specialty Start Date End Date Mckayla Blas, TELEVISION SPECIALIST-COPS [address] [place] [address] PCP - General Nurse Practitioner 09/25/18 Sales Force Developer Relationship Specialty Start Date End Date Ty Amin MD [address] [place] [phone] PCP - General Family Medicine 09/20/23 Mckayla Blas NP [address] [place] [phone] PCP - [facility] 09/07/23 09/05/90 Mckayla Blas NP [address] [place] [address] Nurse Practitioner Family Medicine 09/20/23 Sales Force Developer Relationship Specialty Start Date End Date Ty Amin MD [address] [place] [phone] PCP - General Family Medicine 09/20/23 Mckayla Blas NP [address] [place] [phone] PCP - [facility] 09/07/23 09/05/90 Mckayla Blas NP [address] [place] [address] Nurse Practitioner Family Medicine 09/20/23 Sales Force Developer Relationship Specialty Start Date End Date Ty Amin MD [address] [place] [address] PCP - General Family Medicine 09/20/23 Mckayla Blas NP [address] [place] [address] PCP - [facility] 09/07/23 09/05/90 Mckayla Blas NP [address] [place] [address] Nurse Practitioner Family Medicine 09/20/23 Sales Force Developer Relationship Specialty Start Date End Date Ty Amin MD [address] [place] [phone] PCP - General Family Medicine 09/20/23 Mckayla Blas NP [address] [place] [phone] PCP - [facility] 09/07/23 09/05/90 Mckayla Blas NP [address] [place] [address] Nurse Practitioner Family Medicine 09/20/23 Sales Force Developer Relationship Specialty Start Date End Date Ty Amin MD [address] [place] [address] PCP - General Family Medicine 09/20/23 Mckayla Blas NP [address] [place] [address] PCP - [facility] 09/07/23 09/05/90 Mckayla Blas NP [address] [place] [address] Nurse Practitioner Family Medicine 09/20/23 REASON FOR VISIT (unrecogniz ed section and content) Reason Comments Med Refill Reason Comments Diabetes Follow-up Reason Comments NON-PAR WITH [facility] DUAL COMPLE TE WITHOUT OON [...] BE BASED ON THE PRIMARY CLINICAL RECORDS. [facility]. provides no warranty or guarantee of the accuracy or completeness of information in this document.
== END 2024-08-27 13:20 | disposition home or self-care (01) ==
LOC: WC 13:19
PROVIDERS: PCP Nurse Practitioner; Visit Provider Physician Assistant
DX: L03.115 Cellulitis of right lower limb (principal); I87.311 Chronic venous hypertension (idiopathic) with ulcer of right lower extremity; L97.812 Non-pressure chronic ulcer of other part of right lower leg with fat layer exposed
CPT/HCPCS: 36415; 80048; 85025

== ENCOUNTER 2024-08-27 14:23 | Outpatient (OUT) | payer MEDICARE, OTHER, SELFPAY ==
[2024-08-27 14:47] LABS: Basophils Absolute Auto 0.1 10^3/uL (0.0-0.1); Basophils Percent Auto 0.5 % (0.2-2.0); Eosinophils Absolute Auto 0.2 10^3/uL (0.0-0.7); Eosinophils Percent Auto 1.9 % (0.9-7.0); Hematocrit 50.9 % (36.0-48.0); Hemoglobin 16.1 g/dL (12.0-16.0); Immature Granulocytes Abs Auto 0.04 10^3/uL (0.00-0.03); Immature Granulocytes Pct Auto 0.3 % (0.0-0.5); Lymphocytes Absolute Auto 3.2 10^3/uL (1.2-3.8); Lymphocytes Percent Auto 25.1 % (20.5-60.0); Mean Corpuscular HGB Conc 31.6 g/dL (29.9-35.2); Mean Corpuscular Hemoglobin 29.2 pg (26.7-34.0); Mean Corpuscular Volume 92.2 fL (81.0-99.0); Mean Platelet Volume 12.8 fL (9.5-13.5); Monocytes Absolute Auto 0.7 10^3/uL (0.3-0.8); Monocytes Percent Auto 5.2 % (1.7-12.0); Neutrophils Absolute Auto 8.6 10^3/uL (1.4-6.5); Platelet Count 122 10^3/uL (150-450); Red Blood Count 5.52 10^6/uL (4.20-5.40); Red Cell Distribution Width 14.6 % (11.0-15.0); White Blood Count 12.8 10^3/uL (4.0-11.0)
[2024-08-27 15:24] LABS: Anion Gap 11.7; BUN Creatinine Ratio 19.5; Carbon Dioxide 31.5 mmol/L (21.0-32.0); Chloride 103 mmol/L (98-107); Estimated GFR (African America >60 (>=60 mL/min/1.73m^2); Estimated GFR (Non-African Ame >60 (>=60 mL/min/1.73m^2); Glucose 223 mg/dL (74-106); Potassium 4.2 mmol/L (3.5-5.1); Sodium 142 mmol/L (136-145)
== END 2024-08-27 14:24 | disposition home or self-care (01) ==
LOC: LAB 14:24
PROVIDERS: PCP Nurse Practitioner; Visit Provider Physician Assistant
DX: L03.115 Cellulitis of right lower limb (principal)
CPT/HCPCS: 36415; 80048; 85025

== ENCOUNTER 2024-09-01 15:31 | Outpatient (OUT) | payer MEDICARE, OTHER, SELFPAY | END 2024-09-01 15:32 | disposition home or self-care (01) | LOC: WC 15:31 | PROVIDERS: PCP Nurse Practitioner; Visit Provider Physician Assistant | DX: I87.311 Chronic venous hypertension (idiopathic) with ulcer of right lower extremity (principal); L97.812 Non-pressure chronic ulcer of other part of right lower leg with fat layer exposed | CPT/HCPCS: G0463 ==

== ENCOUNTER 2024-09-10 13:48 | Outpatient (OUT) | payer MEDICARE, OTHER, SELFPAY | END 2024-09-10 13:49 | disposition home or self-care (01) | LOC: WC 13:48 | PROVIDERS: PCP Nurse Practitioner; Visit Provider Podiatrist Foot & Ankle Surgery | DX: I87.311 Chronic venous hypertension (idiopathic) with ulcer of right lower extremity (principal); L97.812 Non-pressure chronic ulcer of other part of right lower leg with fat layer exposed | CPT/HCPCS: G0463 ==

== ENCOUNTER 2024-09-24 14:23 | Outpatient (OUT) | payer MEDICARE, OTHER, SELFPAY | END 2024-09-24 14:24 | disposition home or self-care (01) | LOC: WC 14:24 | PROVIDERS: PCP Nurse Practitioner; Visit Provider Physician Assistant | DX: I87.311 Chronic venous hypertension (idiopathic) with ulcer of right lower extremity (principal); L97.812 Non-pressure chronic ulcer of other part of right lower leg with fat layer exposed | CPT/HCPCS: G0463 ==

== ENCOUNTER 2024-10-08 08:51 | Outpatient (OUT) | payer MEDICARE, OTHER, SELFPAY ==
--- NOTE | 2024-10-08 09:15 | PM.CN ---
Consult Note: HPI Data of Consult Patient: known to practice within the last 3 years Requesting Physician: Angela Cochran NP Primary Care Provider: Mckayla Blas NP Consult Narrative Reason for consult: f/u Narrative: Mitzi Macias a pleasant 54 year old female presents for evaluation and management of low back and right hip pain. Today pain 8/10. Describes it as an aching pain in low back, sharp in right hip, and right leg pain increased with standing, walking, transitioning, stairs. Tolerating current medication regimen well without side effects. Patient has a longstanding hx of low back and leg pain unresponsive to PT/HEP greater than 6 weeks, tylenol, ibuprofen/motrin/aleve, heat/ice, and tylenol. continues to have moderate to severe back and RLE pain. Pt is working on weight loss and smoking cessation. following with wound care for wound of RLE. cc:: CC: Angela Cochran NP Review of Systems ROS Status of ROS 10 or more systems reviewed and unremarkable except as noted in history and below Musculoskeletal Reports: back pain, extremity pain and joint pain PFSH PFS Medical History COPD exacerbation ?J44.1 - Chronic obstructive pulmonary disease with (acute) exacerbation (ICD-10) Influenza A ?J10.1 - Influenza due to other identified influenza virus with other respiratory manifestations (ICD-10) Hypoxia ?R09.02 - Hypoxemia (ICD-10) Hypertension ?I10 - Essential (primary) hypertension (ICD-10) Obesity ?E66.9 - Obesity, unspecified (ICD-10) Amputation toe ?S98.139A - Complete traumatic amputation of one unspecified lesser toe, initial encounter (ICD-10) Neuropathy ?G62.9 - Polyneuropathy, unspecified (ICD-10) Acid reflux ?K21.9 - Gastro-esophageal reflux disease without esophagitis (ICD-10) Diabetes ?E11.9 - Type 2 diabetes mellitus without complications (ICD-10) COPD (chronic obstructive pulmonary disease) ?J44.9 - Chronic obstructive pulmonary disease, unspecified (ICD-10) Asthma ?J45.909 - Unspecified asthma, uncomplicated (ICD-10) High cholesterol ?E78.00 - Pure hypercholesterolemia, unspecified (ICD-10) Surgical History History of hammertoe correction ?Z98.890 - Other specified postprocedural states (ICD-10) ?Z87.39 - Personal history of other diseases of the musculoskeletal system and connective tissue (ICD-10) Hx of cholecystectomy ?Z90.49 - Acquired absence of other specified parts of digestive tract (ICD-10) History of hysterectomy ?Z90.710 - Acquired absence of both cervix and uterus (ICD-10) Social History Within the past year, how often did you have a drink containing alcohol: never Score interpretation: A score less than 3 is consistent with normal alcohol consumption. Smoking status: Former smoker Highest level of school completed/degree received: Associate degree: occupational, technical, vocational program Meds Home Medications and Allergies Home Medications ?Medication ?Instructions ?Recorded ?Confirmed ?Type acetaminophen 500 mg capsule 1,000 mg PO Q6H PRN fever or pain 03/20/23 06/10/24 History amitriptyline 25 mg tablet 25 mg PO DAILY 03/20/23 06/10/24 History aspirin 81 mg tablet,delayed 81 mg PO DAILY 03/20/23 06/10/24 History release (Adult Aspirin Regimen) budesonide-formoterol HFA 160 2 inh inhalation BID 03/20/23 06/10/24 History mcg-4.5 mcg/actuation aerosol inhaler (Symbicort) furosemide 40 mg tablet 40 mg PO DAILY 03/20/23 06/10/24 History insulin aspart U-100 100 unit/mL 1 sliding scale dose subcut 03/20/23 06/10/24 History (3 mL) subcutaneous pen (Novolog USEASDIRECTD FlexPen U-100 Insulin aspart) insulin glargine 100 unit/mL 58 unit subcut BID 03/20/23 06/10/24 History subcutaneous solution (Lantus U-100 Insulin) lisinopril 20 mg tablet 20 mg PO DAILY 03/20/23 06/10/24 History omeprazole 20 mg capsule,delayed 20 mg PO DAILY 03/20/23 06/10/24 History release pregabalin 300 mg capsule 300 mg PO Q12H 03/20/23 06/10/24 History duloxetine 60 mg capsule,delayed 60 mg PO BID #60 caps 04/05/23 06/10/24 Rx release dapagliflozin propanediol 10 mg 10 mg PO .QD 09/10/23 06/10/24 History tablet ergocalciferol (vitamin D2) 1,250 50,000 unit PO QWEEK 09/10/23 06/10/24 History mcg (50,000 unit) capsule potassium chloride 10 mEq 10 meq PO .QD 09/10/23 06/10/24 History capsule,extended release simvastatin 10 mg tablet 10 mg PO QAM 09/10/23 06/10/24 History hydralazine 25 mg tablet 25 mg PO BID #60 tabs 09/13/23 06/10/24 Rx oseltamivir 75 mg capsule 75 mg PO BID #6 caps 09/13/23 06/10/24 Rx hydrocodone 5 mg-acetaminophen 325 1 tab PO TID PRN pain #90 tabs 05/06/24 06/10/24 Rx mg tablet hydrocodone 5 mg-acetaminophen 325 1 tab PO TID PRN pain #90 tabs 06/04/24 06/10/24 Rx mg tablet baclofen 10 mg tablet 10 mg PO TID 06/24/24 06/24/24 History hydrocodone 5 mg-acetaminophen 325 1 tab PO TID PRN pain #80 tabs 06/30/24 Rx mg tablet hydrocodone 5 mg-acetaminophen 325 1 tab PO TID PRN pain #80 tabs 08/04/24 Rx mg tablet hydrocodone 5 mg-acetaminophen 325 See Rx Instructions .Route 09/09/24 Rx mg tablet .COMPLEX PRN pain #80 tabs pregabalin 150 mg capsule (Lyrica) 150 mg PO DAILY #30 caps 09/09/24 Rx Allergies Allergy/AdvReac Type Severity Reaction Status Date / Time No Known Drug Allergies Allergy Verified 06/10/24 08:21 Exam Constitutional Documenting provider has reviewed patient's vital signs: yes Common normals: no apparent distress, oriented x3, healthy appearing, alert and well nourished General appearance: cooperative HENMT Common normals: normocephalic, hearing grossly normal bilaterally and moist oral mucous membranes Head and scalp: normocephalic Eye Common normals: PERRL Pupil: PERRL Neck & C-Spine Common normals: full ROM General: normal visual inspection Chest Common normals: inspection of chest normal Respiratory Common normals: normal respiratory effort, no retractions and no use of accessory muscles Back & Pelvis Lumbar spine/lower back: ROM limited, pain with ROM and straight leg raise positive right Other: right L4,5,S1 decreased sensation strength 4/5 in RLE and 5/5 in LLE Extremity Common normals: normal to inspection and full ROM Neuro Common normals: oriented x3, CN's II-XII intact bilaterally, moves all extremities, no focal motor deficits, no sensory deficits noted and deep tendon reflexes 2+ bilaterally Sensorium/orientation: alert Gait (neuro): assistive device used (wheelchair) Motor exam: no movement abnormalities noted Psych Common normals: mental status grossly normal, thought process normal, cooperative, affect normal, speech normal and activity/motor behavior normal Speech: normal speech Thought process: normal thought process Results Additional Findings Additional findings: If on a controlled substance or opioids, I have checked an [place] report on this patient and there are no aberrancies noted in the prescribing history.??If on a controlled substance or opioid a drug screen was completed and reviewed within the last year, and if there has not been a drug screen completed we ordered one today to monitor higher risk, state monitored pain medication use. As part of providing excellent, safe, comprehensive care, the following was completed at our patient's visit: 1. A medication reconciliation and review to ensure accurate knowledge of current/active medications, including asking our patients to inform us about any [id number] medications or herbal remedies/nutritional supplements/alternative remedies. 2. A review to specifically ensure our patients have had annual screening for screening for depression, screening for tobacco use, and screening for unhealthy alcohol use. For concerning screenings had a discussion with the patient, provided patient education, and recommended follow-up with primary care provider when appropriate. If patient noted with a risk of falling, they received education on strength, gait, and balance training to prevent future risk of falling. Portions of this note may have been carried over from the previous visit and updated as appropriate. Please note this office utilizes paper charting in addition to the electronic medical record. A list of current medications, vitals, and PMH is available there as the clinical staff outside of myself do not have access to [employer] charting during the clinic day operations. As part of providing quality comprehensive care the current medications, vitals, and PMH were reviewed in the paper chart. Assessment and Plan Assessment and Plan (1) Lumbar stenosis with neurogenic claudication: (2) Lumbar degenerative disc disease: (3) Lumbar radiculopathy: (4) Chronic pain syndrome: (5) Chronic prescription opiate use: Assessment and Plan: I feel these medications are improving the patient's quality of life and allow them to tolerate activities of daily living as well as participate in recreational activity.? The patient does not report intolerable side effects. The patient is NOT opioid naive and non-pharmacologic and non-opioid treatment has failed to significantly relieve the patient's pain and improve functionality. The patient has a diagnosis that is related to a somatic or visceral pain etiology. ? ?? I reviewed with the patient the potential risks and side effects with the use of? opioid medications including but not limited to respiratory depression,? sedation, and even . Within the last 12 months I have verified the patient has access to naloxone should? these effects occur. The patient was advised to let? their family know they had Naloxone in case they would need to administer? the medication. I advised the patient to avoid the use of any other? sedation substances including alcohol, THC, and benzodiazepines while? taking opioid medications due to the risk of compounding side effects and? detrimental outcomes. within the last 12 months I have reviewed the [employer], pain treatment agreement and urine drug screen.? ?? A drug screen was completed within the last year, and no aberrancies were noted regarding their use of controlled substances. The patient understands they are subject to the terms and conditions of the pain contract that they have signed. ? ?? I have checked an [place]AR[place] report on this patient today and there are no aberrancies noted in the prescribing history.? (6) Osteoarthritis of hip: Qualifiers: Osteoarthritis type: unspecified Laterality: unspecified laterality Qualified Code(s): M16.9 - Osteoarthritis of hip, unspecified (7) Chronic right hip pain: Plan continue pregabalin to 300mg AM, 150mg mid day, 300mg HS. risks vs benefits reviewed. does find improvement in radicular pain with increased dose without side effects continue baclofen 5-10mg TID PRN pain/spasms continue hydrocodone-acetaminophen 5-325mg TID PRN moderate to severe pain 80 tabs month continue diclofenac 75mg BID PRN pain current medication regimen reviewed with pt, risks vs benefits reviewed. defer NS consultation due to risks, current infection and obesity f/u 3 months, sooner if wound closed
== END 2024-10-08 08:52 | disposition home or self-care (01) ==
PROVIDERS: PCP Nurse Practitioner; Visit Provider Nurse Practitioner
DX: M48.062 Spinal stenosis, lumbar region with neurogenic claudication (principal); M51.369 Other intervertebral disc degeneration, lumbar region without mention of lumbar back pain or lower extremity pain; M54.16 Radiculopathy, lumbar region; G89.4 Chronic pain syndrome; Z79.891 Long term (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 opiate analgesic; M16.9 Osteoarthritis of hip, unspecified; M25.551 Pain in right hip
CPT/HCPCS: G0463

== ENCOUNTER 2024-10-08 09:26 | Outpatient (OUT) | payer MEDICARE, OTHER, SELFPAY ==
--- OUTSIDE RECORDS SUMMARY | 2024-10-08 09:34 | XMS_ITS | CCD ---
Author Organization [facility] Care Team Providers Care Director Of Photography Name Role Phone James Benavidez Primary Care Provider [phone] JAMES BENAVIDEZ Primary Care Unavailable SHENDGE, VITHAL Admitting Unavailable SHENDGE, VITHAL Attending Unavailable AICHHOLZ, MCKAYLA Primary Care Unavailable AICHHOLZ, MCKAYLA Referring Unavailable AICHHOLZ, MCKAYLA J Primary Care Physician [phone] Tico, Stephanie Unavailable OLE RAMIREZ Attending Unavailable OLE RAMIREZ Consulting Unavailable AICHHOLZ, SHOE COVERER MCKAYLA Primary Care Unavailable OLE RAMIREZ Admitting Unavailable ANTONY SHRESTHA Consulting Unavailable ALONDRA ., UMBERTO Admitting Unavailable ALONDRA ., UMBERTO Attending Unavailable AICHHOLZ, SHOE COVERER MCKAYLA Primary Care Unavailable AFSANEH Loera, DR BOLANOS Consulting Unavailable MARYANNE POWER Consulting Unavailable GLENN KERR Consulting Unavailable YOMAIRA KERR Consulting Unavailable HATTIE GOFF Consulting Unavailable ALONDRA ., UMBERTO Consulting Unavailable TICO, STEPHANIE Attending Unavailable TICO, STEPHANIE Consulting Unavailable AICHHOLZ, SHOE COVERER MCKAYLA Primary Care Unavailable TICO, STEPHANIE Admitting Unavailable REGLA ., DR DUMONT Admitting Unavailable AICHHOLZ, SHOE COVERER MCKAYLA Primary Care Unavailable REGLA ., DR DUMONT Attending Unavailable ARAUZ ., DR DUMONT Consulting Unavailable COLLIN HUERTAS Consulting Unavailable CECILIA KAUFMAN Admitting Unavailable CECILIA KAUFMAN Attending Unavailable AICHHOLZ, SHOE COVERER MCKAYLA Primary Care Unavailable RAFAEL GONGORA Attending Unavailable RAFAEL GONGORA Admitting Unavailable AICHHOLZ, SHOE COVERER MCKAYLA Primary Care Unavailable AICHHOLZ, SHOE COVERER MCKAYLA Admitting Unavailable AICHHOLZ, SHOE COVERER MCKAYLA Primary Care Unavailable AICHHOLZ, SHOE COVERER MCKAYLA Attending Unavailable AICHHOLZ, SHOE COVERER MCKAYLA Consulting Unavailable LAKSHMIPATHY ., NARENDRANATH Attending Anette vailable LAKSHMIPATHY ., NARENDRANATH Consulting Anette vailable LAKSHMIPATHY ., NARENDRANATH Admitting Anette vailable AICHHOLZ, SHOE COVERER MCKAYLA Primary Care Unavailable VALENZUELA ., GIL Consulting Unavailable MORTENSEN ., DR CHAPARRO Aguillon Attending Unavailable MORTENSEN ., DR CHAPARRO Aguillon Admitting Unavailable AICHHOLZ, SHOE COVERER MCKAYLA Primary Care Unavailable VALENZUELA ., GIL Consulting Unavailable MORTENSEN ., DR CHAPARRO Aguillon Admitting Unavailable AICHHOLZ, SHOE COVERER MCKAYLA Primary Care Unavailable MORTENSEN ., DR CHAPARRO Aguillon Attending Unavailable HALKER ., SUBHASH Consulting Unavailable LAKSHMIPATHY ., NARENDRANATH Admitting Anette vailable LAKSHMIPATHY ., NARENDRANATH Attending Anette vailable AICHHOLZ, SHOE COVERER MCKAYLA Primary Care Unavailable MORTENSEN ., DR CHAPARRO Aguillon Attending Unavailable MORTENSEN ., DR CHAPARRO Aguillon Admitting Unavailable VALENZUELA ., GIL Consulting Unavailable AICHHOLZ, SHOE COVERER MCKAYLA Primary Care Unavailable VALENZUELA ., GIL Consulting Unavailable MORTENSEN ., DR CHAPARRO Aguillon Attending Unavailable MORTENSEN ., DR CHAPARRO Aguillon Admitting Unavailable AICHHOLZ, SHOE COVERER MCKAYLA Primary Care Unavailable HATTIE BRODERICK Attending Unavailable HATTIE BRODERICK Admitting Unavailable AICHHOLZ, SHOE COVERER MCKAYLA Primary Care Unavailable AICHHOLZ, SHOE COVERER MCKAYLA Admitting Unavailable AICHHOLZ, SHOE COVERER MCKAYLA Consulting Unavailable AICHHOLZ, SHOE COVERER MCKAYLA Primary Care Unavailable AICHHOLZ, SHOE COVERER MCKAYLA Attending Unavailable AICHHOLZ, SHOE COVERER MCKAYLA Primary Care Unavailable MISC, DR LESLIE Admitting Unavailable MISC, DR LESLIE Attending Unavailable MISC, DR LESLIE Consulting Unavailable DIAB ., MARIANO Admitting Unavailable DIAB ., MARIANO Attending Unavailable DIAB ., MARIANO Consulting Unavailable AICHHOLZ, SHOE COVERER MCKAYLA Primary Care Unavailable RASTEGAR, RICCO Consulting Unavailable AICHHOLZ, SHOE COVERER MCKAYLA Admitting Unavailable AICHHOLZ, SHOE COVERER MCKAYLA Primary Care Unavailable AICHHOLZ, SHOE COVERER MCKAYLA Attending Unavailable AICHHOLZ, SHOE COVERER MCKAYLA Consulting Unavailable DR PATRICIA VELOZ Consulting Unavailable TAMLYN ., CECILIA Attending Unavailable TAMLYN ., CECILIA Admitting Unavailable DR PATRICIA VELOZ Consulting Unavailable AICHHOLZ, SHOE COVERER MCKAYLA Primary Care Unavailable TAMLYN ., CECILIA Consulting Unavailable MORTENSEN ., DR CHAPARRO Aguillon Attending Unavailable FESTUS ., DR CHAPARRO Aguillon Consulting Unavailable FESTUS ., DR CHAPARRO Aguillon Admitting Unavailable AICHHOLZ, SHOE COVERER MCKAYLA Primary Care Unavailable HATTIE BRODERICK Attending Unavailable HATTIE BRODERICK Consulting Unavailable HATTIE BRODERICK Admitting Unavailable AICHHOLZ, SHOE COVERER MCKAYLA Primary Care Unavailable HATTIE BAUTISTA Unavailable AICHHOLZ, SAYDA MCKAYLA Admitting Unavailable AICHHOLZ, SHOE COVERER MCKAYLA Attending Unavailable AICHHOLZ, SHOE COVERER MCKAYLA Consulting Unavailable AICHHOLZ, SHOE COVERER MCKAYLA Primary Care Unavailable Brennan PHIPPS, Ty Primary Care Provider Brennan PHIPPS, Ty Primary Care Provider Aichholz GAS LINE INSTALLER, Mckayla Unavailable Aichholz GAS LINE INSTALLER, Mckayla Unavailable Elbert ARAUZ Attending Unavailable SARAH VEGA Attending Unavailable DAKOTAH BRIDGES Attending Unavailable BHARAT AGUILAR Attending Unavailable AICHHOLZ, MCKAYLA Attending Unavailable AICHHOLZ, MCKAYLA Attending Unavailable AICHHOLZ, MCKAYLA Attending Unavailable AICHHOLZ, MCKAYLA Attending Unavailable AICHHOLZ, MCKAYLA Attending Unavailable AICHHOLZ, MCKAYLA Attending Unavailable RAIN SOUZA Attending Unavailable RAIN SOUZA Referring Unavailable ROBERTOHOLJuanis, MCKAYLA Attending Unavailable Allergies Allergy Classification Reported Allergen(s) Allergy Type Date of Onset Reaction(s) Facility (1 source) No Known Medication Allergies; Translations: [No Known Medication Allergies] Propensity to adverse reactions (disorder) [facility] Repository Medications Current Medications Medication Drug Class(es) [...] Start Date: 02/06/22 Status: Ordered HYDROcodone-acet aminophen ([place]) 5-325 MG tablet 1 tablet 3 (three) times a day as needed for severe pain. Active take 1 tablet by vandana twice daily as needed [place] 5-325 MG 1 tablet as needed Orally [...] / ipratropium bromide 0.167 mg/ml inhalation solution (16 sources) Anticholinergic, beta2-Adrenergic Agonist ipratropium-albutero l (Duo-Neb) 0.5-2.5 mg/3 mL nebulizer solution Daily as needed Active amitriptyline hydrochloride 25 mg oral tablet (20 sources) Tricyclic Antidepressant Start: 2021 End: 2024 take 1 tablet by mouth at bedtime amitriptyline (Elavil) 25 MG tablet Indications: Insomnia Take 1 tablet (25 mg) by mouth at bedtime 90 tablet 1 04/14/2024 Active aspirin 81 mg chewable tablet (20 sources) Platelet Aggregation Inhibitor, Nonsteroidal Anti-inflammatory Drug Start: 2023 End: 2024 aspirin 81 MG chewable tablet Indications: Type 2 diabetes mellitus with complication, with long-term current use of insulin ([facility]) Chew 1 tablet (81 mg) Daily 90 tablet 1 07/14/2024 10/12/2024 Active aspirin 81 MG ch ewable tablet Chew 81 mg in the morning. 0 Active baclofen 10 mg oral tablet (6 sources) gamma-Aminobutyric Acid-ergic Agonist Start: 06-24-2024 take 1 tablet by mouth in the morning, then take 1 tablet by mouth in the evening, then take 1 tablet by mouth at bedtime baclofen (Lioresal) 10 MG tablet Take 10 mg by mouth in the morning and 10 mg in the evening and 10 mg before bedtime. 06/24/2024 Active 60 actuat budesonide 0.16 mg/actuat / formoterol fumarate 0.0045 mg/actuat metered dose inhaler (4 sources) Corticosteroid, beta2-Adrenergic Agonist take 2 puff(s) by inhalation in the morning budesonide-form oterol (Symbicort) 160-4.5 MCG/ACT inhaler Inhale 2 puffs in the morning and 2 puffs before bedtime. Rinse mouth with water after use to reduce aftertaste and incidence of candidiasis. Do not swallow.. 0 Active take 2 puff(s) by inhalation twi ce daily Symbicort 160-4.5 MCG/ACT 2 puffs Inhalation Twice a day Active cephalexin 500 mg oral capsule (3 sources) Cephalosporin Antibacterial Start: 2024 cephalexin (Keflex) 500 MG capsule 2024 Active cetirizine hydrochloride 10 mg oral tablet (20 sources) Histamine-1 Receptor Antagonist Start: 11-01-2023 End: [...] 0 Active dapagliflozin 10 mg oral tablet (20 sources) Sodium-Glucose Cotransporter 2 Inhibitor Start: 01-17-2024 [...] (one) time per week. 0 Active DULoxetine 30 mg Cap-EC (2 sources) Start: DULoxetine 30 mg Cap-EC Refills(s) 0 Start Date: 02/06/22 Status: Ordered ergocalciferol 1.25 mg oral capsule (19 sources) Provitamin D2 Compound Start: End: take 1 capsule by mouth every week ergocalciferol (Vitamin D2) 1.25 MG (14780 UT) capsule Indications: Vitamin D deficiency, unspecified TAKE 1 CAPSULE BY MOUTH ONE TIME PER WEEK 12 capsule 1 04/06/2024 Active fluconazole 150 mg oral tablet (5 sources) Azole Antifungal Start: fluconazole (Diflucan) 150 MG tablet Indications: Antibiotic-induced yeast infection One time dose, repeat in 3 days . Do not take cholesterol pill while taking this medication. Once finished then resume 2 tablet 1 08/27/2024 Active Start: 08-17-2023 End: 08-19-2023 fluconazole (Diflucan) 150 M G tablet Indications: Vaginal yeast infection Take 1 [...] 90 tablet 1 07/07/2024 10/05/2024 Active Start: 04-06-2024 End: 07-05-2024 take 1 tablet by mouth once daily furosemide (Lasix) 40 MG tablet Indications: Bilateral lower extremity edema Take 1 tablet (40 mg) by mouth Daily 90 tablet 1 04/06/2024 Active Start: 02-06-2022 End: 05-08-2024 take 1 tablet by mouth once daily as needed for edema furosemide (Lasix) 20 MG tablet Indications: Bilateral lower extremity edema Take 1 tablet (20 mg) by mouth Daily as needed (edema) Take in the afternoon as needed 90 tablet 1 02/08/2024 05/08/2024 Active furosemide (Lasi x) 20 MG tablet Take 60 mg by mouth in the morning and 60 mg before bedtime. 40 mg in the morning and 20 mg in the afternoon. 0 Active take 1 tablet by vandana th in the morning furosemide (Lasix) 40 MG tablet Take 40 mg by mouth in the morning. 0 Active hydrALAZINE hydrochloride 25 mg oral tablet (18 sources) Arteriolar Vasodilator Start: 09-13-2023 End: 07-13-2024 [...] 12 units with supper. 0 Active NovoLog (5 sources) Insulin Analog Start: 02-06-2022 NovoLog SubCutaneous, TIDAC, Refills(s) 0 Start Date: 02/06/22 Status: Ordered NovoLOG 100 UNIT /ML as directed Injection SLIDING SCALE BEFORE EACH MEAL Active 3 ml insulin glargine 100 unt/ml pen injector (20 sources) Insulin Analog Start: 08-26-2024 Lantus SoloSta r 100 UNIT/ML pen 08/26/2024 Active Start: 10-30-2023 End: 04-14-2024 Lantus SoloStar 100 [...] ml insulin lispro 100 unt/ml pen injector (18 sources) Insulin Analog Start: 10-06-2023 End: 04-14-2024 HumaLOG KWIKPEN 100 UNIT/ML injection Inject under the skin 10/06/2023 04/14/2024 Discontinued (Therapy completed) inject 1 [IU] by sub cutaneous injection three times daily before mealtime Insulin Lispro (HUMALOG KWIKPEN SC) Inject under the skin 3 (three) times a day before meals 8-10-12 units before meals and sliding scale Active ammonium lactate 120 mg/ml topical lotion (3 sources) Start: 07-22-2024 ammonium lacta te (Lac-Hydrin) 12 % lotion APPLY TO BILATERAL FEET EVERY DAY 07/22/2024 Active meloxicam (5 sources) Nonsteroidal Anti-inflammatory Drug Start: 02-06-2022 meloxicam Daily, Refills(s) 0 Start Date: 02/06/22 Status: Ordered take 1 tablet by vandana every twenty-four hours Meloxicam 7.5 MG 1 tablet Orally Once a day Active metFORMIN hydrochloride 1000 mg oral tablet (1 source) Biguanide take 1 tablet by mouth twice daily at mealtime metFORMIN (GLUCOPHAGE) 1000 MG tablet Take 1,000 mg by mouth 2 times daily (with meals). 0 Active Mounjaro 10 MG/0.5ML solution pen-injector (4 sources) Start: 4 End: 4 inject 10 mg by subcutaneous injection every [...] Active naloxone hydrochloride 40 mg/ml nasal spray (6 sources) Opioid Antagonist Start: 07-04-2024 naloxone (Narcan) 4 mg/0.1 mL nasal spray Administer 4 mg into affected nostril(s) if needed 07/04/2024 Active 24 hr nicotine 0.875 mg/hr transdermal system (6 sources) Cholinergic Nicotinic Agonist Start: 07-14-2024 End: 08-13-2024 nicotine (Nicoderm, Step 1) 21 MG/24HR patch Indications: Encounter for smoking cessation counseling Place 1 patch over 24 hours on the skin 1 (one) time each day at the same time May either leave patch on 24 hours, or apply in the morning and take of at bedtime, rotate sites 30 patch 1 07/14/2024 Active Oxygen (16 sources) oxygen (O2) gas Inhale 2 L/min continuously via nasal canula Active pregabalin 150 mg oral capsule (20 sources) Start: 08-13-2024 take 1 capsule by mouth once daily pregabalin (Lyrica) 150 MG capsule Take 150 mg by mouth Daily 08/13/2024 Active Start: 02-06-2022 Lyrica Oral, R efills(s) 0 Start Date: 02/06/22 Status: Ordered Start: 02-06-2022 End: 05-14-2024 take 1 capsule by mouth in the morning pregabalin (Lyrica) 300 MG capsule Indications: Diabetic polyneuropathy associated with type 2 diabetes mellitus (CMS/HCC) Take 1 capsule (300 mg) by mouth in the morning and 1 capsule (300 mg) before bedtime. 60 capsule 5 04/14/2024 Active roflumilast 0.5 mg oral tablet (16 sources) Phosphodiesterase 4 Inhibitor Start: 01-04-2024 End: 07-13-2024 take 1 tablet by mouth once daily Roflumilast 500 MCG tablet Indications: Chronic obstructive pulmonary disease, unspecified (CMS/HCC) Take 1 tablet by mouth Daily 90 tablet 1 04/14/2024 Active simvastatin 10 mg oral tablet (19 sources) HMG-CoA Reductase Inhibitor Start: 04-06-2024 End: 11-25-2024 take 1 tablet by mouth at bedtime simvastatin (Zocor) 10 MG tablet Indications: Hyperlipidemia, unspecified (CMS/HCC) Take 1 tablet (10 mg) by mouth at bedtime 90 tablet 1 08/27/2024 11/25/2024 Active Start: 06-15-2023 End: 09-13-2023 take 1 tablet by mouth in the morning simvastatin (Zocor) 10 MG tablet Indications: Hyperlipidemia, unspecified (CMS/HCC) Take 1 tablet (10 mg) by mouth in the morning. 90 tablet 1 06/15/2023 09/13/2023 Active sulfamethoxazole 800 mg / trimethoprim 160 mg oral tablet (2 sources) Dihydrofolate Reductase Inhibitor Antibacterial, Sulfonamide Antimicrobial Start: 08-27-2024 sulfamethoxazole-trimethopri m (Bactrim DS) 800-160 MG per tablet 08/27/2024 Active Symbicort 160/4.5 inhalation aerosol with adapter [...] Active Tirzepatide (Mounjaro) 15 MG/0.5ML solution auto-injector (6 sources) Start: 07-07-2024 inject 15 mg by [...] and 1 application before bedtime. 0 Active varenicline 1 mg oral tablet (16 sources) Partial Cholinergic Nicotinic Agonist Start: 08-27-2024 End: 10-26-2024 take 1 tablet by mouth once daily Varenicline Tartrate, Starter, (Chantix Starting Month ) 0.5 MG X 11 & 1 MG X 42 tablet therapy pack Indications: Tobacco user , Encounter for smoking cessation counseling Take 1 tablet by mouth Daily Take daily as directed 53 each 08/27/2024 09/26/2024 Active Start: 12-05-2023 End: 07-14-2024 Varenicline Tartrate, Starte r, 0.5 MG X 11 & 1 MG X 42 tablet therapy pack TAKED DIRECTED BY MOUTH TWICE DAILY 12/05/2023 07/14/2024 Discontinued (Therapy completed) Start: 12-05-2023 Varenicline Ta rtrate, Starter, 0.5 MG X 11 & 1 MG X 42 tablet therapy pack TAKED DIRECTED BY MOUTH TWICE DAILY 12/05/2023 Active Completed/Discontinued Medications Medication Drug Class(es) Dates Sig (Normalized) Sig (Original) DULoxetine 60 mg delayed release oral capsule (20 sources) Serotonin and Norepinephrine Reuptake Inhibitor Start: 11-01-2023 End: 11-25-2024 take 1 capsule by mouth in the morning DULoxetine (Cymbalta) [address] capsule Indications: Anxiety and depression (CMS/HCC) Take 1 capsule (60 mg) by mouth in the morning and 1 capsule (60 mg) before bedtime. Do not crush or chew.. 180 capsule 1 04/14/2024 08/27/2024 Discontinued (Reorder) Start: 07-23-2023 End: 08-22-2023 take 1 capsule [...] Refills(s) 0 Start Date: 02/06/22 Status: Ordered Glucose Blood (ACCU-CHEK STEPHANY VA PLUS ) (14 sources) End: 07-14-2024 Glucose Blood (ACCU-CHEK STEPHANY VA PLUS ) 4 (four) times a day. [...] the skin Daily 07/14/2024 Discontinued (Therapy completed) lisinopril 20 mg oral tablet (20 sources) Angiotensin Converting Enzyme Inhibitor Start: 02-06-2022 End: 11-25-2024 take 1 tablet by mouth once daily lisinopril 20 MG tablet Indications: Primary hypertension (CMS/HCC) Take 1 tablet (20 mg) by mouth Daily 90 tablet 1 04/14/2024 08/27/2024 Discontinued (Reorder) nortriptyline 50 mg oral capsule (16 sources) Tricyclic Antidepressant End: 08-27-2024 take 1 capsule by mouth once daily nortriptyline (Pamelor) 50 MG capsule Take 1 capsule by mouth Daily 08/27/2024 Discontinued (Therapy completed) omeprazole 20 mg delayed release oral capsule (20 sources) Proton Pump Inhibitor Start: 12-25-2023 End: 11-25-2024 take 1 capsule by mouth before mealtime omeprazole (PriLOSEC) [address] capsule Indications: Gastro-esophageal reflux disease without esophagitis Take 1 capsule (20 mg) by mouth in the morning. Take before meals. 90 capsule 1 04/14/2024 08/27/2024 Discontinued (Reorder) take 1 capsule by mouth before m ealtime omeprazole (PriLOSEC) [address] capsule Take 20 mg by mouth in the morning. Take before meals. Do not crush or chew. . 0 Active potassium chloride 10 meq extended release oral capsule (20 sources) Start: 02-06-2022 End: 11-25-2024 take 1 capsule by mouth once daily in the morning potassium chloride ER (Micro-K) 10 MEQ ER capsule Indications: Edema, unspecified , Edema Take 1 capsule (10 mEq) by mouth Daily Take 1 capsule (10 mEq) by mouth in the morning. 90 capsule 1 04/14/2024 08/27/2024 Discontinued (Reorder) take 1 tablet by vandana th every twenty-four hours Potassium Chloride ER 10 MEQ 1 tablet with food Orally Once a day Active ubrogepant 100 mg oral tablet (12 sources) End: 07-14-2024 take 1 tablet by mouth every twenty-four hours as needed Ubrogepant (Ubrelvy) 100 MG tablet Take 100 mg by mouth Daily as needed 07/14/2024 Discontinued (Therapy completed) Problems Active Problems Problem Classification Problem Date [...] surveillance] Onset: 11-01-2023 11-01-2023 Episodic Anxiety disorders (20 sources) Mixed anxiety and depressive disorder; Translations: [Anxiety disorder, unspecified] Onset: 07-10-2023 07-10-2023 Chronic Asthma (20 sources) Asthma; Translations: [Unspecified asthma, uncomplicated] Onset: 07-10-2023 02-06-2022 Chronic Cancer of cervix (18 sources) Malignant tumor of cervix; Translations: [Malignant neoplasm of cervix uteri, unspecified] Onset: 09-17-2023 09-17-2023 Chronic Chronic kidney disease (5 sources) Chronic kidney disease; Translations: [Chronic kidney disease, unspecified] Onset: 02-20-2022 Resolved: 03-08-2022 Chronic Chronic obstructive pulmonary disease and bronchiectasis (20 sources) Pulmonary emphysema; Translations: [Chronic obstructive pulmonary disease with (acute) exacerbation] Onset: 10-09-2022 02-06-2022 Chronic Chronic ulcer of skin (6 sources) Non-pressure chronic ulcer of other part of right lower leg limited to breakdown of skin; Translations: [Non-pressure chronic ulcer of other part of left lower leg limited to breakdown of skin] Onset: 09-01-2022 08-27-2024 Chronic Congestive heart failure; nonhypertensive (7 sources) Chronic diastolic (congestive) heart failure; Translations: [Chronic diastolic heart failure] Onset: 08-08-2024 Chronic Diabetes mellitus [...] unspecified] Onset: 04-06-2022 09-17-2023 Chronic Esophageal disorders (20 sources) Gastro-esophageal reflux disease without esophagitis; Translations: [Gastroesophageal reflux disease] Onset: 12-05-2022 09-17-2023 Chronic Essential hypertension (20 sources) Hypertensive disorder; Translations: [Essential (primary) hypertension] Onset: 11-23-2022 02-06-2022 Chronic Genitourinary symptoms and ill-defined conditions (20 sources) Mixed incontinence; Translations: [Incontinence] Onset: 02-06-2022 Chronic Gout and other crystal arthropathies (18 sources) Gout; Translations: [Gout, unspecified] Onset: 10-25-2017 [...] D/O SINGLE EPIS UNS] Onset: 12-27-2021 Chronic Mycoses (20 sources) Tinea unguium; Translations: [Candidiasis of vagina] Onset: 07-26-2022 Episodic Noninfectious gastroenteritis (1 source) Noninfective gastroenteritis and colitis, unspecified; Translations: [NONINFECTIVE GE AND COLITIS UNS] Onset: 10-09-2022 Episodic Nutritional deficiencies (3 sources) Vitamin D deficiency; Translations: [Vitamin D deficiency, unspecified] 05-27-2024 Chronic Nutritional deficiencies (5 sources) Vitamin deficiency; Translations: [Vitamin deficiency, unspecified] Onset: 08-27-2024 08-27-2024 Episodic Osteoarthritis (20 sources) Arthritis; Translations: [Unspecified osteoarthritis, unspecified site] Onset: 04-20-2022 02-06-2022 Chronic Other aftercare (1 source) 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 (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 therapy; Translations: [OTH [facility] CURRENT DRUG THERAPY] Onset: 12-05-2022 Episodic Other aftercare (1 source) assisted (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; Translations: [[facility] CURRENT USE OF ASPIRIN] Onset: 12-05-2022 Episodic Other aftercare (3 sources) 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; Translations: [PILOT CAN ROUTER CURRENT USE OF INSULIN] Onset: 12-05-2022 Episodic Other aftercare (2 sources) Long-term current use of insulin; Translations: [assisted (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] 05-27-2024 Episodic Other aftercare (3 sources) Long-term current use of inhaled steroid; Translations: [assisted (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 inhaled steroids] Onset: 08-27-2024 08-27-2024 Episodic Other and ill-defined heart disease (17 sources) Cardiomegaly; Translations: [Cardiomegaly] Onset: 10-25-2017 09-17-2023 Chronic Other and ill-defined heart disease (1 source) Cardiomegaly; Translations: [Cardiomegaly] Onset: 11-14-2023 Chronic Other and unspecified benign neoplasm (1 source) Benign lipomatous tumor; Translations: [Benign lipomatous neoplasm of other sites] Onset: 06-11-2024 Episodic Other and unspecified benign neoplasm (7 sources) Myelolipoma of adrenal gland; Translations: [Benign [...] Chronic Other diseases of veins and lymphatics (5 sources) Chronic peripheral venous hypertension with lower extremity complication; Translations: [Chronic venous hypertension (idiopathic) with ulcer of bilateral lower extremity] Onset: 08-27-2024 08-27-2024 Chronic Other diseases of veins and lymphatics (2 sources) Venous insufficiency (chronic) (peripheral); Translations: [Venous insufficiency (chronic) (peripheral)] Onset: 11-14-2023 Episodic Other endocrine disorders (2 sources) Disorder of adrenal gland; Translations: [Other specified disorders of adrenal gland] Onset: 02-06-2022 Chronic Other endocrine disorders (20 sources) Adrenal mass; Translations: [Disorder of adrenal [...] Chronic Other nutritional; endocrine; and metabolic disorders (7 sources) Body mass index 40+ - severely obese; Translations: [Body mass index (BMI) 50.0-59.9, adult] Onset: 08-27-2024 08-27-2024 Chronic Other nutritional; endocrine; and metabolic disorders [...] nutritional; endocrine; and metabolic disorders (5 sources) Obesity caused by energy imbalance; Translations: [Morbid (severe) obesity due to excess calories] Onset: 08-27-2024 08-27-2024 Chronic Other screening for suspected conditions (not mental disorders or infectious disease) (1 source) Encounter for screening mammogram for malignant neoplasm of breast; Translations: [ENC SCR MAMMO MALIG NEOPLASM BREAST] Onset: 11-25-2022 Episodic Other upper respiratory disease (20 sources) Allergic rhinitis; Translations: [Other allergic rhinitis] Onset: 11-01-2023 11-01-2023 Chronic Peripheral and visceral atherosclerosis (20 sources) Peripheral vascular disease, unspecified; Translations: [Peripheral vascular disease, unspecified] Onset: 09-01-2022 09-17-2023 Chronic Pulmonary heart disease (16 sources) Pulmonary hypertension; Translations: [Pulmonary hypertension, unspecified] Onset: 09-17-2023 09-17-2023 Chronic Residual codes; unclassified (3 sources) Obstructive sleep apnea (adult) (pediatric); Translations: [OBSTRUCTIVE SLEEP APNEA] Onset: 10-09-2022 Chronic Residual codes; unclassified (18 sources) Obstructive sleep apnea syndrome; Translations: [Obstructive [...] EDEMA] Onset: 09-01-2022 Episodic Residual codes; unclassified (20 sources) Edema; Translations: [Edema, unspecified] Onset: 07-10-2023 Resolved: 07-10-2023 08-14-2023 Episodic Residual codes; unclassified (20 sources) Bilateral lower limb edema; Translations: [Localized edema] Onset: 07-10-2023 07-10-2023 Episodic Residual codes; unclassified (20 sources) Tobacco user; Translations: [Tobacco use] Onset: 09-17-2023 09-17-2023 Episodic Substance-related disorders (7 sources) Nicotine dependence; Translations: [Nicotine dependence, unspecified, uncomplicated] Onset: 02-06-2022 Chronic Comment on above: Added secondary to d ocumentation in Social History. 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 INJECT NONINSULN ANTIDIAB] Onset: 12-05-2022 Unclassified (3 sources) CONTACT W/AND (SUSP) EXPOS COVID-19; Translations: [CONTACT W/AND (SUSP) EXPOS COVID-19] Onset: 07-08-2022 Unclassified (3 sources) LOW BACK PAIN, UNSPECIFIED; Translations: [LOW BACK PAIN, UNSPECIFIED] Onset: 12-27-2021 Unclassified (1 source) Obesity, class 3; Translations: [Obesity, class 3] Onset: 11-14-2023 Varicose veins of lower extremity (10 sources) Varicose veins of right lower extremity with ulcer of unspecified site; Translations: [Varicose veins of lower extremities with ulcer] Onset: 06-19-2024 07-14-2024 Episodic Viral infection (1 source) COVID-19; Translations: [...] 02-06-2022 Resolved: 03-08-2022 Episodic Headache; including migraine (19 sources) Headache; Translations: [Headache disorder] Onset: 01-17-2024 02-06-2022 Episodic Immunizations and screening for infectious disease (17 sources) Encounter for screening for other infectious and parasitic diseases; Translations: [Anti-nuclear factor positive] Onset: 09-16-2020 09-17-2023 Episodic Mood disorders (17 sources) Mood disorders; Translations: [DEPRESSION UNSPECIFIED] Onset: 12-05-2022 01-17-2024 Other connective tissue disease (4 sources) Other muscle spasm; Translations: [OTHER MUSCLE SPASM] Onset: 01-19-2022 Episodic Other diseases of veins and lymphatics (16 sources) Vascular insufficiency; Translations: [Venous insufficiency (chronic) (peripheral)] Onset: 09-17-2023 09-17-2023 Episodic Other hematologic conditions (1 source) Secondary polycythemia Onset: 03-08-2022 Resolved: 03-08-2022 Episodic Other lower respiratory disease (2 sources) Shortness of breath; Translations: [Shortness of breath] Onset: 11-14-2023 Episodic Other nervous system disorders (16 sources) Reduced mobility; Translations: [Other abnormalities of gait and mobility] Onset: 09-17-2023 09-17-2023 Episodic Other non-traumatic joint disorders (1 source) Effusion, left knee; Translations: [EFFUSION LEFT KNEE] Onset: 07-26-2022 Episodic Other non-traumatic joint disorders (1 source) Pain in left knee; Translations: [PAIN IN LEFT KNEE] Onset: 07-26-2022 Episodic Other non-traumatic joint disorders (16 sources) Pain in right knee; Translations: [Pain in joint, lower leg] Onset: 09-17-2023 09-17-2023 Episodic Other nutritional; endocrine; and metabolic disorders (20 sources) Severe obesity; Translations: [Morbid (severe) obesity due to excess calories] Onset: 07-10-2023 Resolved: 04-14-2024 07-10-2023 Chronic Other nutritional; endocrine; and metabolic disorders (16 sources) Excess panniculus of abdomen; Translations: [Localized adiposity] Onset: 10-25-2017 Resolved: 08-27-2024 09-17-2023 Chronic Other skin disorders (1 source) Nail dystrophy; Translations: [NAIL DYSTROPHY] Onset: 09-01-2022 Episodic Other skin disorders (1 source) Corns and callosities; Translations: [CORNS AND CALLOSITIES] Onset: 09-01-2022 Episodic Other skin disorders (1 source) Xerosis cutis; Translations: [XEROSIS CUTIS] Onset: 09-01-2022 Episodic Other skin disorders (15 sources) Hyperpigmentation of skin; Translations: [Disorder of pigmentation, unspecified] Onset: 04-14-2024 04-14-2024 Episodic Otitis media and related conditions (16 sources) Acute suppurative otitis media without spontaneous rupture of ear drum; Translations: [Acute suppurative otitis media without spontaneous rupture of ear drum, left ear] Onset: 01-17-2024 Resolved: 07-14-2024 01-17-2024 Episodic Pancreatic disorders (not diabetes) (17 sources) Acute pancreatitis without necrosis or infection, unspecified; Translations: [Pancreatitis] Onset: 10-09-2022 09-17-2023 Episodic Pneumonia (except that caused by tuberculosis or sexually transmitted disease) (16 sources) Pneumonia; Translations: [Pneumonia, unspecified organism] Onset: 09-17-2023 09-17-2023 Episodic Residual codes; unclassified (18 sources) Insomnia; Translations: [Insomnia, unspecified] Onset: 09-17-2023 09-17-2023 Episodic Residual codes; unclassified (16 sources) Edema of lower extremity; Translations: [Localized edema] Onset: 09-17-2023 Resolved: 09-17-2023 09-17-2023 Episodic Skin and subcutaneous tissue infections (5 sources) Cellulitis of right lower limb; Translations: [Cutaneous abscess of left axilla] Onset: 07-18-2022 Episodic Spondylosis; intervertebral disc disorders; other back problems (18 sources) Lumbar radiculopathy; Translations: [Radiculopathy, lumbar region] [...] 3; Translations: [Obesity, class 3] Onset: 08-08-2024 Unclassified (4 sources) Patient encounter status 08-27-2024 Results Test Name Value Interpretation Reference Range Facility ALL CBC WITH AUTO DIFFon BASOPHILS ABSOLUTE AUTO 0.1 N [facility] Basophils/100 WBC (Bld) 0.5 % 0.2 - 2.0 % [facility] Eosinophils/100 WBC (Bld) 1.9 % 0.9 - 7.0 % [facility] Erythrocyte distribution width (RBC) [Ratio] 14.6 % 11.0 - 15.0 % [facility] Hematocrit (Bld) [Volume fraction] 50.9 % High 36.0 - 48.0 % [facility] Hemoglobin (Bld) [Mass/Vol] 16.1 g/dL High 12.0 - 16.0 g/dL [facility] IMMATURE GRANULOCYTES ABS AUTO 0.04 High [facility] Immature granulocytes/100 WBC (Bld) 0.3 % 0.0 - 0.5 % [facility] Interpretation and review of laboratory results Abnormal [facility] LYMPHOCYTES ABSOLUTE AUTO 3.2 [facility] Lymphocytes/100 WBC (Bld) 25.1 % 20.5 - 60.0 % [facility] MCH (RBC) [Entitic mass] 29.2 pg 26.7 - 34.0 pg [facility] MCHC (RBC) [Mass/Vol] 31.6 g/dL 29.9 - 35.2 g/dL [facility] MCV (RBC) [Entitic vol] 92.2 fL 81.0 - 99.0 fL [facility] MONOCYTES ABSOLUTE AUTO 0.7 N [facility] Monocytes/100 WBC (Bld) 5.2 % 1.7 - 12.0 % [facility] NEUTROPHILS ABSOLUTE AUTO 8.6 High [facility] Neutrophils/100 WBC (Bld) 67 % 43.0 - 75.0 % [facility] Platelet mean volume (Bld) [Entitic vol] 12.8 fL 9.5 - 13.5 fL [facility] EO # 0.2 [facility] PLT 122 Low [facility] RBC 5.52 High [facility] WBC 12.8 High [facility] Office Visiton 08-08-2024 Follow-up visit [id number] Mitzi Macias 1970 Date Provider Department Center 08/08/2024 [id number] RIGGS MARIO Rojas Family History Problem Relation Age of Onset Heart attack Paternal Grandmother Family Status - Relation Status Age at Paternal Grandmother Level of Service:26219 SC OFFICE/OUTPATIENT ESTABLISHED MOD MDM 30 MIN Reason for Visit and Comments: Congestive Heart Failure [127] - Denies chest pain, SOB, and palpitations. Hypertension [794849] Hyperlipidemia [182] LVH [Other] Edema [[id number]] - Denies worsening edema. She sees wound care for RLE ulcer. She was seeing the vein specialists here in town but they are moving to [place] in a few weeks. Normal [facility] Glucose (Bld) [Mass/Vol]Orde red By: Mica Sauceda on 05-27-2024 Glucose Blood, POC 158 mg/dL [facility] Laboratory - Hematology and Cell countson 05-27-2024 HbA1c (Bld) [Mass fraction] 9.2 % [facility] No Panel InformationOrdered By: Mica Sauceda on 05-27-2024 [facility] CREATININEon 05-12-2024 Creatinine [Mass/Vol] 0.92 mg/dL 0.55 - 1.02 mg/dL [facility] GFR/1.73 sq M.predicted CKD-EPI (S/P/Bld) [Vol rate/Area] >60 >=60 mL/min/1.73m 2 [facility] EGFR-NON AF JORDANIAN >60 >=60 mL/min/1.73m 2 [facility] Office Visiton 11-14-2023 Follow-up visit [id number] Mitzi Macias 1970 Date Provider Department Center 11/14/2023 BHARAT NICOLE MARIO Rojas Family History Problem Relation Age of Onset Heart attack Paternal Grandmother Family Status - Relation Status Age at Paternal Grandmother Level of Service:84781 SC OFFICE/OUTPATIENT NEW LOW MDM 30 MINUTES Normal [facility] CBC AUTO DIFFon 12-06-2022 BASO # 0.0 103/ul Normal 0.0-0.1 [facility] Comment on above: Performed By: #### C BC #### [facility] [address] [address] [address] Ashlie [place] Basophils/100 WBC (Bld) 0.1 % Critically low 0.2-2.0 [facility] Comment on above: Performed By: #### C BC #### [facility] [address] [address] [address] Ashlie [place] EO # 0.0 103/ul Normal 0.0-0.7 [facility] Comment on above: Performed By: #### C BC #### [facility] [address] [address] [address] Ashlie [place] Eosinophils/100 WBC (Bld) 0.0 % Critically low 0.9-7.0 [facility] Comment on above: Performed By: #### C BC #### [facility] [address] [address] [address] Ashlie [place] Erythrocyte distribution width (RBC) [Ratio] 14.9 % Normal 11.0-15.0 [facility] Comment on above: Performed By: #### C BC #### [facility] [address] [address] [address] Ashlie [place] Hematocrit (Bld) [Volume fraction] 46.2 % Normal 36.0-48.0 [facility] Comment on above: Performed By: #### C BC #### [facility] [address] [address] [address] Ashlie [place] Hemoglobin (Bld) [Mass/Vol] 14.7 g/dL Normal 12.0-16.0 [facility] Comment on above: Performed By: #### C BC #### [facility] [address] [address] [address] Ashlie [place] IG # 0.06 10e3/ul Critically high 0.00-0.03 [facility] Comment on above: Performed By: #### C BC #### [facility] [address] [place] [address] Dr. Ashlie [place] IG % 0.4 % Normal 0.0-0.5 [facility] Comment on above: Performed By: #### C BC #### [facility] [address] [place] [address] Dr. Ashlie [place] LYMPH # 1.3 103/ul Normal 1.2-3.8 [facility] Comment on above: Performed By: #### C BC #### [facility] [address] [place] [address] Dr. Ashlie [place] Lymphocytes/100 WBC (Bld) 9.4 % Critically low 20.5-60.0 [facility] Comment on above: Performed By: #### C BC #### [facility] [address] [place] [address] Dr. Ashlie [place] MANUAL DIFF REQ NO Normal [facility] Comment on above: Performed By: #### C BC #### [facility] [address] [place] [address] Dr. Ashlie [place] MCH (RBC) [Entitic mass] 28.4 pg Normal 26.7-34.0 [facility] Comment on above: Performed By: #### C BC #### [facility] [address] [place] [address] Dr. Ashlie [place] MCHC (RBC) [Mass/Vol] 31.8 g/dL Normal 29.9-35.2 [facility] Comment on above: Performed By: #### C BC #### [facility] [address] [place] [address] Dr. Ashlie [place] MCV (RBC) [Entitic vol] 89.4 fL Normal 81.0-99.0 [facility] Comment on above: Performed By: #### C BC #### [facility] [address] [place] [address] Dr. Ashlie [place] MONO # 0.5 103/ul Normal 0.3-0.8 [facility] Comment on above: Performed By: #### C BC #### [facility] [address] [address] [address] Ashlie [place] Monocytes/100 WBC (Bld) 3.4 % Normal 1.7-12.0 [facility] Comment on above: Performed By: #### C BC #### [facility] [address] [address] [address] Ashlie [place] NEUT # 11.8 103/ul Critically high 1.4-6.5 [facility] Comment on above: Performed By: #### C BC #### [facility] [address] [place] [address] Dr. Ashlie [place] Neutrophils/100 WBC (Bld) 86.7 % Critically high 43.0-75.0 [facility] Comment on above: Performed By: #### C BC #### [facility] [address] [place] [address] Dr. Ashlie [place] Platelet mean volume (Bld) [Entitic vol] 12.6 fL Normal 9.5-13.5 [facility] Comment on above: Performed By: #### C BC #### [facility] [address] [place] [address] Dr. Ashlie [place] PLT 133 103/ul Critically low 150-450 [facility] Comment on above: Performed By: #### C BC #### [facility] [address] [place] [address] Dr. Ashlie [place] RBC 5.17 106/ul Normal 4.20-5.40 [facility] Comment on above: Performed By: #### C BC #### [facility] [address] [place] [address] Dr. Ashlie [place] WBC 13.6 103/ul Critically high 4.0-11.0 [facility] Comment on above: Performed By: #### C BC #### [facility] [address] [place] [address] Dr. Ashlie [place] MAGNESIUMon 12-06-2022 Magnesium [Mass/Vol] 2.2 mg/dL Normal 1.8-2.4 [facility] Comment on above: Performed By: #### I NFLUAB #### [facility] [address] [address] [address] Ashlie [place] POINT OF CARE GLUCOSEon 11-08 Glucose [Mass/Vol] 340 mg/dL Critically high -106 [facility] Comment on above: Performed By: #### P OCGLUC #### [facility] [address] [place] [address] Dr. Ashlie [place] Glucose [Mass/Vol] 276 mg/dL Critically high -106 [facility] Comment on above: Performed By: #### C BC #### [facility] [address] [place] [address] Dr. Ashlie [place] Glucose [Mass/Vol] 333 mg/dL Critically high [address] [place] [address] Comment on above: Performed By: #### C BC #### [facility] [address] [place] [address] Dr. Ashlie [place] PROF CHEM 8 (BAS METB)on Anion gap [Moles/Vol] 10.9 mmol/L Normal [facility] Comment on above: Performed By: #### I NFLUAB #### [facility] [address] [address] [address] [place]lie [place] Calcium [Mass/Vol] 9.3 mg/dL Normal 8.5-10.1 [facility] Comment on above: Performed By: #### I NFLUAB #### [facility] [address] [place] [address] Dr. Ashlie [place] Chloride [Moles/Vol] 103 mmol/L Normal 98-107 [facility] Comment on above: Performed By: #### I NFLUAB #### [facility] [address] [address] [address] [place]lie [place] CO2 [Moles/Vol] 31.2 mmol/L Normal 21.0-32.0 [facility] Comment on above: Performed By: #### I NFLUAB #### [facility] [address] [place] [address] Dr. Ashlie [place] Creatinine [Mass/Vol] 0.96 mg/dL Normal 0.55-1.02 [facility] Comment on above: Performed By: #### I NFLUAB #### [facility] [address] [address] [address] [place]lie [place] EGFR-AF JORDANIAN >60 Normal >=60 [facility] Comment on above: Performed By: #### I NFLUAB #### [facility] [address] [address] [address] [place]lie [place] EGFR-NON AF JORDANIAN >60 Normal >=60 [facility] Comment on above: Performed By: #### I NFLUAB #### [facility] [address] [address] [address] [place]lie [place] Glucose [Mass/Vol] 288 mg/dL Critically high 74-106 [facility] Comment on above: Performed By: #### I NFLUAB #### [facility] [address] [address] [address] [place]lie [place] Potassium [Moles/Vol] 5.1 mmol/L Normal 3.5-5.1 [facility] Comment on above: Performed By: #### I NFLUAB #### [facility] [address] [address] [address] [place]lie [place] Sodium [Moles/Vol] 140 mmol/L Normal 136-145 [facility] Comment on above: Performed By: #### I NFLUAB #### [facility] [address] [address] [address] [place]lie [place] Urea nitrogen [Mass/Vol] 30.0 mg/dL Critically high 7.0-18.0 [facility] Comment on above: Performed By: #### I NFLUAB #### [facility] [address] [address] [address] [place]lie [place] Urea nitrogen/Creatinine [Mass ratio] 31.2 mg/mg Normal [facility] Comment on above: Performed By: #### I NFLUAB #### [facility] [address] [address] [address] [place]lie [place] CBC AUTO DIFFon 12-05-2022 BASO # 0.0 103/ul Normal 0.0-0.1 [facility] Comment on above: Performed By: #### C BC #### [facility] [address] [address] [address] [place]lie [place] Basophils/100 WBC (Bld) 0.4 % Normal 0.2-2.0 [facility] Comment on above: Performed By: #### C BC #### [facility] [address] [place] [address] Dr. Ashlie [place] EO # 0.0 103/ul Normal 0.0-0.7 [facility] Comment on above: Performed By: #### C BC #### [facility] [address] [place] [address] Dr. Ashlie [place] Eosinophils/100 WBC (Bld) 0.0 % Critically low 0.9-7.0 [facility] Comment on above: Performed By: #### C BC #### [facility] [address] [place] [address] Dr. Ashlie [place] Erythrocyte distribution width (RBC) [Ratio] 14.8 % Normal 11.0-15.0 [facility] Comment on above: Performed By: #### C BC #### [facility] [address] [place] [address] Dr. Ashlie [place] Hematocrit (Bld) [Volume fraction] 49.9 % Critically high 36.0-48.0 [facility] Comment on above: Performed By: #### C BC #### [facility] [address] [place] [address] Dr. Ashlie [place] Hemoglobin (Bld) [Mass/Vol] 15.7 g/dL Normal 12.0-16.0 [facility] Comment on above: Performed By: #### C BC #### [facility] [address] [place] [address] Dr. Ashlie [place] IG # 0.04 10e3/ul Critically high 0.00-0.03 [facility] Comment on above: Performed By: #### C BC #### [facility] [address] [place] [address] Dr. Ashlie [place] IG % 0.5 % Normal 0.0-0.5 [facility] Comment on above: Performed By: #### C BC #### [facility] [address] [address] [address] [place]lie [place] LYMPH # 1.1 103/ul Critically low 1.2-3.8 [facility] Comment on above: Performed By: #### C BC #### [facility] [address] [address] [address] [place]lie [place] Lymphocytes/100 WBC (Bld) 12.7 % Critically low 20.5-60.0 [facility] Comment on above: Performed By: #### C BC #### [facility] [address] [place] [address] Dr. Ashlie [place] MANUAL DIFF REQ NO Normal [facility] Comment on above: Performed By: #### C BC #### [facility] [address] [place] [address] Dr. Ashlie [place] MCH (RBC) [Entitic mass] 28.1 pg Normal 26.7-34.0 [facility] Comment on above: Performed By: #### C BC #### [facility] [address] [place] [address] Dr. Ashlie [place] MCHC (RBC) [Mass/Vol] 31.5 g/dL Normal 29.9-35.2 [facility] Comment on above: Performed By: #### C BC #### [facility] [address] [place] [address] Dr. Ashlie [place] MCV (RBC) [Entitic vol] 89.3 fL Normal 81.0-99.0 [facility] Comment on above: Performed By: #### C BC #### [facility] [address] [address] [address] [place]lie [place] MONO # 0.1 103/ul Critically low 0.3-0.8 [facility] Comment on above: Performed By: #### C BC #### [facility] [address] [place] [address] Dr. Ashlie [place] Monocytes/100 WBC (Bld) 1.3 % Critically low 1.7-12.0 [facility] Comment on above: Performed By: #### C BC #### [facility] [address] [address] [address] [place]lie [place] NEUT # 7.2 103/ul Critically high 1.4-6.5 [facility] Comment on above: Performed By: #### C BC #### [facility] [address] [address] [address] [place] Neutrophils/100 WBC (Bld) 85.1 % Critically high 43.0-75.0 [facility] Comment on above: Performed By: #### C BC #### [facility] [address] [address] [address] [place] Platelet mean volume (Bld) [Entitic vol] 12.2 fL Normal 9.5-13.5 [facility] Comment on above: Performed By: #### C BC #### [facility] [address] [address] [address] [place]lie [place] PLT 116 103/ul Critically low 150-450 [facility] Comment on above: Performed By: #### C BC #### [facility] [address] [address] [address] [place]lie [place] RBC 5.59 106/ul Critically high 4.20-5.40 [facility] Comment on above: Performed By: #### C BC #### [facility] [address] [address] [address] [place] WBC 8.5 103/ul Normal 4.0-11.0 [facility] Comment on above: Performed By: #### C BC #### [facility] [address] [place] [address] Dr. Ashlie [place] CTA CHEST WO W [...] GOFF Date: 2022-12-05 01:52 Normal [facility] MAGNESIUMon 12-05-2022 Magnesium [Mass/Vol] 2.1 mg/dL Normal 1.8-2.4 [facility] Comment on above: Performed By: #### P OCGLUC #### [facility] [address] [address] [address] [place] POINT OF CARE GLUCOSEon 11-08 Glucose [Mass/Vol] 293 mg/dL Critically high -106 [facility] Comment on above: Performed By: #### P OCGLUC #### [facility] [address] [address] [address] [place] Glucose [Mass/Vol] 269 mg/dL Critically high -106 [facility] Comment on above: Performed By: #### P OCGLUC #### [facility] [address] [address] Dr. Ashlie Hills Glucose [Mass/Vol] 223 mg/dL Critically high -106 [facility] Comment on above: Performed By: #### C VDAGS #### [facility] [address] [address] [address] Ashlie Hills PROF CHEM 8 (BAS METB)on Anion gap [Moles/Vol] 11.6 mmol/L Normal [facility] Comment on above: Performed By: #### P OCGLUC #### [facility] [address] [address] [address] Ashlie Hills Calcium [Mass/Vol] 9.2 mg/dL Normal 8.5-10.1 [facility] Comment on above: Performed By: #### P OCGLUC #### [facility] [address] [address] [address] Ashlie Hills Chloride [Moles/Vol] 102 mmol/L Normal 98-107 [facility] Comment on above: Performed By: #### P OCGLUC #### [facility] [address] [address] [address] Ashlie Hills CO2 [Moles/Vol] 28.7 mmol/L Normal 21.0-32.0 [facility] Comment on above: Performed By: #### P OCGLUC #### [facility] [address] [address] [address] Ashlie Hills Creatinine [Mass/Vol] 1.04 mg/dL Critically high 0.55-1.02 [facility] Comment on above: Performed By: #### P OCGLUC #### [facility] [address] [address] [address] Ashlie Hills EGFR-AF JORDANIAN >60 Normal >=60 [facility] Comment on above: Performed By: #### P OCGLUC #### [facility] [address] [address] [address] Ashlie Hills EGFR-NON AF JORDANIAN 56 mL/min/1.73m2 Critically low >=60 [facility] Comment on above: Performed By: #### P OCGLUC #### [facility] [address] [address] [address] Ashlie Hills Glucose [Mass/Vol] 231 mg/dL Critically high 74-106 [facility] Comment on above: Performed By: #### P OCGLUC #### [facility] [address] [address] [address] Ashlie Hills Potassium [Moles/Vol] 4.3 mmol/L Normal 3.5-5.1 [facility] Comment on above: Performed By: #### P OCGLUC #### [facility] [address] [address] [address] Ashlie Hills Sodium [Moles/Vol] 138 mmol/L Normal 136-145 [facility] Comment on above: Performed By: #### P OCGLUC #### [facility] [address] [address] [address] Ashlie Hills Urea nitrogen [Mass/Vol] 17.0 mg/dL Normal 7.0-18.0 [facility] Comment on above: Performed By: #### P OCGLUC #### [facility] [address] [place] [address] Dr. Ashlie Hills Urea nitrogen/Creatinine [Mass ratio] 16.3 mg/mg Normal [facility] Comment on above: Performed By: #### P OCGLUC #### [facility] [address] [address] [address] Ashlie Hills RESPIRATORY PANEL PLUSon Adenovirus Not detected Normal NOT DETECTED [facility] Comment on above: Performed By: #### C VDAGS #### [facility] [address] [place] [address] Dr. Ashlie Shaffer. Parapertusis Not detected Normal NOT DETECTED [facility] Comment on above: Performed By: #### C VDAGS #### [facility] [address] [address] [address] Ashlie Shaffer. Pertussis Not detected Normal NOT DETECTED [facility] Comment on above: Performed By: #### C VDAGS #### [facility] [address] [address] [address] Ashlie Hills Chlamydia Pneumoniae Not detected Normal NOT DETECTED [facility] Comment on above: Performed By: #### C VDAGS #### [facility] [address] [place] [address] Dr. Ashlie Hills Coronavirus 229E Not detected Normal NOT DETECTED [facility] Comment on above: Performed By: #### C VDAGS #### [facility] [address] [address] [address] Ashlie Hills Coronavirus HKU1 Not detected Normal NOT DETECTED [facility] Comment on above: Performed By: #### C VDAGS #### [facility] [address] [place] [address] Dr. Ashlie Hills Coronavirus NL63 Not detected Normal NOT DETECTED [facility] Comment on above: Performed By: #### C VDAGS #### [facility] [address] [place] [address] Dr. Ashlie Hills Coronavirus OC43 Not detected Normal NOT DETECTED [facility] Comment on above: Performed By: #### C VDAGS #### [facility] [address] [place] [address] Dr. Ashlie Hills Influenza A H1 Not detected Normal NOT DETECTED [facility] Comment on above: Performed By: #### C VDAGS #### [facility] [address] [place] [address] Dr. Ashlie Hills Influenza A H1 2009 Not detected Normal NOT DETECTED [facility] Comment on above: Performed By: #### C VDAGS #### [facility] [address] [place] [address] Dr. Ashlie Hills Influenza A H3 Not detected Normal NOT DETECTED [facility] Comment on above: Performed By: #### C VDAGS #### [facility] [address] [place] [address] Dr. Ashlie Hills Influenza B Not detected Normal NOT DETECTED [facility] Comment on above: Performed By: #### C VDAGS #### [facility] [address] [place] [address] Dr. Ashlie Hills Metapneumovirus Not detected Normal NOT DETECTED [facility] Comment on above: Performed By: #### C VDAGS #### [facility] [address] [place] [address] Dr. Ashlie Hills Mycoplas. Pneumoniae Not detected Normal NOT DETECTED [facility] Comment on above: Performed By: #### C VDAGS #### [facility] [address] [place] [address] Dr. Ashlie Hills Parainfluenza 1 Not detected Normal NOT DETECTED [facility] Comment on above: Performed By: #### C VDAGS #### [facility] [address] [place] [address] Dr. Ashlie Hills Parainfluenza 2 Not detected Normal NOT DETECTED [facility] Comment on above: Performed By: #### C VDAGS #### [facility] [address] [place] [address] Dr. Ashlie Hills Parainfluenza 3 Detected Abnormal NOT DETECTED The [facility] Comment on above: Performed By: #### C VDAGS #### [facility] [address] [place] [address] Dr. Ashlie Hills Parainfluenza 4 Not detected Normal NOT DETECTED [facility] Comment on above: Performed By: #### C VDAGS #### [facility] [address] [place] [address] Dr. Ashlie Hills Rhino/Enterovirus Not detected Normal NOT DETECTED [facility] Comment on above: Performed By: #### C VDAGS #### [facility] [address] [place] [address] Dr. Ashlie Hills RP2 Header 1 RESPIRATORY PANEL: VIRUSES Normal [facility] Comment on above: Performed By: #### C VDAGS #### [facility] [address] [place] [address] Dr. Ashlie Hills RP2 Header 2 RESPIRATORY PANEL: BACTERIA Normal [facility] Comment on above: Performed By: #### C VDAGS #### [facility] [address] [place] [address] Dr. Ashlie Hills RSV Not detected Normal NOT DETECTED [facility] Comment on above: Performed By: #### C VDAGS #### [facility] [address] [place] [address] Dr. Ashlie Hills SARS-CoV-2 (COVID-19) RNA MADDY+probe Ql (Unsp spec) Not detected Normal NOT DETECTED [facility] Comment on above: Performed By: #### C VDAGS #### [facility] [address] [place] [address] Dr. Ashlie Hills XR CHEST 1 Von [...] Date: 2022-12-04 22:23 Normal [facility] BLOOD GASES BTYon 12-04-2022 02 MODE ROOM AIR Normal [facility] Comment on above: Performed By: #### C BC #### [facility] [address] [place] [address] Dr. Ashlie Hills ALLENS TEST Positive Normal [facility] Comment on above: Performed By: #### C BC #### [facility] [address] [place] [address] Dr. Ashlie Hills Base excess Calc (Bld) [Moles/Vol] 5.4 mmol/L Critically high -2.0-2.0 [facility] Comment on above: Performed By: #### C BC #### [facility] [address] [place] [address] Dr. Ashlie Hills BIPAP PRESSURE Normal [facility] Comment on above: Performed By: #### C BC #### [facility] [address] [place] [address] Dr. Ash[address] [facility] Comment on above: Performed By: #### C BC #### [facility] [address] [place] [address] Dr. Ashlie Hills FIO2 Normal [facility] Comment on above: Performed By: #### C BC #### [facility] [address] [place] [address] Dr. Ashlie Hills HCO3 (Bld) [Moles/Vol] 30.8 mmol/L Critically high 22.0-26 .0 [facility] Comment on above: Performed By: #### C BC #### [facility] [address] [place] [address] Dr. Ashlie Hills LPM Normal [facility] Comment on above: Performed By: #### C BC #### [facility] [address] [place] [address] Dr. Ashlie Hills MINUTE VOLUME Normal [facility] Comment on above: Performed By: #### C BC #### [facility] [address] [place] [address] Dr. Ashlie Hills Oxygen (Bld) [Partial pressure] 46.3 mm[Hg] Critically low 80.0-100.0 [facility] Comment on above: Performed By: #### C BC #### [facility] [address] [place] [address] Dr. Ashlie Hills Oxygen saturation in Blood 83.9 % Critically low 95.0-100.0 [facility] Comment on above: Performed By: #### C BC #### [facility] [address] [place] [address] Dr. Ashlie Hills PCO2 54.2 mmHg Critically high 35.0-45.0 [facility] Comment on above: Performed By: #### C BC #### [facility] [address] [place] [address] Dr. [address] [facility] Comment on above: Performed By: #### C BC #### [facility] [address] [place] [address] Dr. Ashlie Hills pH (Bld) 7.363 [pH] Normal 7.350-7.450 [facility] Comment on above: Performed By: #### C BC #### [facility] [address] [place] [address] Dr. [address] [facility] Comment on above: Performed By: #### C BC #### [facility] [address] [place] [address] Dr. [address] PS [facility] Comment on above: Performed By: #### C BC #### [facility] [address] [place] [address] Dr. Ashlie Hills PUNCTURE SITE LR [facility] Comment on above: Performed By: #### C BC #### [facility] [address] [place] [address] Dr. [address] RATE [facility] Comment on above: Performed By: #### C BC #### [facility] [address] [place] [address] Dr. Ashlie Hills VENT MODE [facility] Comment on above: Performed By: #### C BC #### [facility] [address] [place] [address] Dr. Ashlie Hills [facility] Comment on above: Performed By: #### C BC #### [facility] [address] [place] [address] Dr. Ashlie Hills BNPon 12-04-2022 Natriuretic peptide B (Bld) [Mass/Vol] 76.0 pg/mL Normal <=900.0 [facility] Comment on above: Performed By: #### P OCGLUC #### [facility] [address] [place] [address] Dr. Ashlie Hills CBC AUTO DIFFon 12-04-2022 BASO # 0.1 103/ul Normal 0.0-0.1 [facility] Comment on above: Performed By: #### C BC #### [facility] [address] [place] [address] Dr. Ashlie Hills Basophils/100 WBC (Bld) 0.6 % Normal 0.2-2.0 [facility] Comment on above: Performed By: #### C BC #### [facility] [address] [place] [address] Dr. Ashlie Hills EO # 0.2 103/ul Normal 0.0-0.7 [facility] Comment on above: Performed By: #### C BC #### [facility] [address] [place] [address] Dr. Ashlie Hills Eosinophils/100 WBC (Bld) 1.9 % Normal 0.9-7.0 [facility] Comment on above: Performed By: #### C BC #### [facility] [address] [place] [address] Dr. Ashlie Hills Erythrocyte distribution width (RBC) [Ratio] 15.0 % Normal 11.0-15.0 [facility] Comment on above: Performed By: #### C BC #### [facility] [address] [place] [address] Dr. Ashlie Hills Hematocrit (Bld) [Volume fraction] 49.1 % Critically high 36.0-48.0 [facility] Comment on above: Performed By: #### C BC #### [facility] [address] [place] [address] Dr. Ashlie Hills Hemoglobin (Bld) [Mass/Vol] 15.6 g/dL Normal 12.0-16.0 [facility] Comment on above: Performed By: #### C BC #### [facility] [address] [place] [address] Dr. Ashlie Hills IG # 0.02 10e3/ul Normal 0.00-0.03 [facility] Comment on above: Performed By: #### C BC #### [facility] [address] [place] [address] Dr. Ashlie Hills IG % 0.2 % Normal 0.0-0.5 [facility] Comment on above: Performed By: #### C BC #### [facility] [address] [place] [address] Dr. Ashlie Hills LYMPH # 2.8 103/ul Normal 1.2-3.8 [facility] Comment on above: Performed By: #### C BC #### [facility] [address] [place] [address] Dr. Ashlie Hills Lymphocytes/100 WBC (Bld) 29.9 % Normal 20.5-60.0 [facility] Comment on above: Performed By: #### C BC #### [facility] [address] [place] [address] Dr. Ashlie Hills MANUAL DIFF REQ NO Normal [facility] Comment on above: Performed By: #### C BC #### [facility] [address] [place] [address] Dr. Ashlie Hills MCH (RBC) [Entitic mass] 28.5 pg Normal 26.7-34.0 [facility] Comment on above: Performed By: #### C BC #### [facility] [address] [place] [address] Dr. Ashlie Hills MCHC (RBC) [Mass/Vol] 31.8 g/dL Normal 29.9-35.2 [facility] Comment on above: Performed By: #### C BC #### [facility] [address] [place] [address] Dr. Ashlie Hills MCV (RBC) [Entitic vol] 89.8 fL Normal 81.0-99.0 [facility] Comment on above: Performed By: #### C BC #### [facility] [address] [place] [address] Dr. Ashlie Hills MONO # 1.0 103/ul Critically high 0.3-0.8 [facility] Comment on above: Performed By: #### C BC #### [facility] [address] [place] [address] Dr. Ashlie Hills Monocytes/100 WBC (Bld) 10.6 % Normal 1.7-12.0 [facility] Comment on above: Performed By: #### C BC #### [facility] [address] [place] [address] Dr. Ashlie Hills NEUT # 5.3 103/ul Normal 1.4-6.5 [facility] Comment on above: Performed By: #### C BC #### [facility] [address] [place] [address] Dr. Ashlie Hills Neutrophils/100 WBC (Bld) 56.8 % Normal 43.0-75.0 [facility] Comment on above: Performed By: #### C BC #### [facility] [address] [place] [address] Dr. Ashlie Hills Platelet mean volume (Bld) [Entitic vol] 12.5 fL Normal 9.5-13.5 [facility] Comment on above: Performed By: #### C BC #### [facility] [address] [place] [address] Dr. Ashlie Hills PLT 109 103/ul Critically low 150-450 [facility] Comment on above: Performed By: #### C BC #### [facility] [address] [place] [address] Dr. Ashlie Hills RBC 5.47 106/ul Critically high 4.20-5.40 [facility] Comment on above: Performed By: #### C BC #### [facility] [address] [place] [address] Dr. Ashlie Hills WBC 9.4 103/ul Normal 4.0-11.0 [facility] Comment on above: Performed By: #### C BC #### [facility] [address] [place] [address] Dr. Ashlie Hills PROF 14(COMP METB)on 023 Albumin [Mass/Vol] 2.9 g/dL Critically low 3.4-5.0 [facility] Comment on above: Performed By: #### C BC #### [facility] [address] [place] [address] Dr. Ashlie Hills Albumin/Globulin [Mass ratio] 0.6 {ratio} Normal [facility] Comment on above: Performed By: #### C BC #### [facility] [address] [place] [address] Dr. Ashlie Hills ALP [Catalytic activity/Vol] 64 U/L Normal 46-116 [facility] Comment on above: Performed By: #### C BC #### [facility] [address] [place] [address] Dr. Ashlie Hills ALT [Catalytic activity/Vol] 16 U/L Normal 14-59 [facility] Comment on above: Performed By: #### C BC #### [facility] [address] [place] [address] Dr. Ashlie Hills Anion gap [Moles/Vol] 9.6 mmol/L Normal [facility] Comment on above: Performed By: #### C BC #### [facility] [address] [address] [address] Ashlie Hills AST [Catalytic activity/Vol] 16 U/L Normal 15-37 [facility] Comment on above: Performed By: #### C BC #### [facility] [address] [address] [address] Ashlie Hills Bilirubin [Mass/Vol] 0.5 mg/dL Normal 0.2-1.0 [facility] Comment on above: Performed By: #### C BC #### [facility] [address] [address] [address] Ashlie Hills Calcium [Mass/Vol] 8.7 mg/dL Normal 8.5-10.1 [facility] Comment on above: Performed By: #### C BC #### [facility] [address] [address] [address] Ashlie Hills Chloride [Moles/Vol] 103 mmol/L Normal 98-107 [facility] Comment on above: Performed By: #### C BC #### [facility] [address] [address] [address] Ashlie Hills CO2 [Moles/Vol] 30.7 mmol/L Normal 21.0-32.0 [facility] Comment on above: Performed By: #### C BC #### [facility] [address] [address] [address] Ashlie Hills Creatinine [Mass/Vol] 0.96 mg/dL Normal 0.55-1.02 [facility] Comment on above: Performed By: #### C BC #### [facility] [address] [address] [address] Ashlie Hills EGFR-AF JORDANIAN >60 Normal >=60 [facility] Comment on above: Performed By: #### C BC #### [facility] [address] [address] [address] Ashlie Hills EGFR-NON AF JORDANIAN >60 Normal >=60 [facility] Comment on above: Performed By: #### C BC #### [facility] [address] [address] [address] Ashlie Hills Globulin (S) [Mass/Vol] 4.7 g/dL Normal [facility] Comment on above: Performed By: #### C BC #### [facility] [address] [place] [address] Dr. Ashlie Hills Glucose [Mass/Vol] 170 mg/dL Critically high 74-106 [facility] Comment on above: Performed By: #### C BC #### [facility] [address] [place] [address] Dr. Ashlie Hills Potassium [Moles/Vol] 4.3 mmol/L Normal 3.5-5.1 [facility] Comment on above: Performed By: #### C BC #### [facility] [address] [place] [address] Dr. Ashlie Hills Protein [Mass/Vol] 7.6 g/dL Normal 6.4-8.2 [facility] Comment on above: Performed By: #### C BC #### [facility] [address] [place] [address] Dr. Ashlie Hills Sodium [Moles/Vol] 139 mmol/L Normal 136-145 [facility] Comment on above: Performed By: #### C BC #### [facility] [address] [place] [address] Dr. Ashlie Hills Urea nitrogen [Mass/Vol] 16.0 mg/dL Normal 7.0-18.0 [facility] Comment on above: Performed By: #### C BC #### [facility] [address] [place] [address] Dr. Ashlie Hills Urea nitrogen/Creatinine [Mass ratio] 16.7 mg/mg Normal [facility] Comment on above: Performed By: #### C BC #### [facility] [address] [place] [address] Dr. Ashlie Hills SYMPTOMATIC COVID-19 ANTIGEN on [...] By: #### C VDAGS #### [facility] [address] [place] [address] Dr. Ashlie Hills SARS-CoV-2 (COVID-19) RNA MADDY+probe Ql (Unsp spec) Negative Normal NEGATIVE [facility] Comment on above: Performed By: #### C VDAGS #### [facility] [address] [place] [address] Dr. Ashlie Hills TROPONIN, HIGH SENSITIVITYon 12-04-2022 HSTROP 8.9 pg/mL Normal 4.0-51.3 [facility] Comment on above: Result Comment: CUT- OFF POINTS HAVE BEEN ESTABLISHED BASED ON THE FOURTH UNIVERSAL DEFINITIONS OF MYOCARDIAL INFARCTION. THE UPPER REFERENCE LIMIT (URL) OF TROPONIN, DEFINED THE 99TH PERCENTILE OF cTnI DISTRIBUTION IN A REFERENCE POPULATION, HAS BEEN CONFIRMED THE DECISION THRESHOLD FOR [place] DIAGNOSIS. Performed By: #### P OCGLUC #### [facility] [address] [place] [address] Dr. Ashlie Hills MICROALBUMIN, RAND URon 05- mALB 35.8 mg/dL Critically high <=30.0 The [facility] Comment on above: Performed By: #### C VDAGS #### [facility] [address] [place] [address] Dr. Ashlie Hills UA RANDOM W/MICROSCOPICon BACTERIA NONE SEEN Normal NONE SEEN [facility] Comment on above: Performed By: #### C VDAGS #### [facility] [address] [place] [address] Dr. Ashlie Hills Bilirubin Ql (U) Negative Normal NEGATIVE The [facility] Comment on above: Performed By: #### C VDAGS #### [facility] [address] [place] [address] Dr. Ashlie Hills CAST SEEN Abnormal NONE SEEN [facility] Comment on above: Performed By: #### C VDAGS #### [facility] [address] [place] [address] Dr. Ashlie Hills Clarity (U) CLEAR Normal CLEAR [facility] Comment on above: Performed By: #### C VDAGS #### [facility] [address] [place] [address] Dr. Ashlie Hills Color (U) YELLOW Normal YELLOW [facility] Comment on above: Performed By: #### C VDAGS #### [facility] [address] [place] [address] Dr. Ashlie Hills Crystals LM Nom (Urine sed) NONE SEEN Normal NONE SEEN [facility] Comment on above: Performed By: #### C VDAGS #### [facility] [address] [place] [address] Dr. Ashlie Hills Epithelial cells LM Ql (Urine sed) MODERATE Abnormal NONE SEEN /RARE [facility] Comment on above: Performed By: #### C VDAGS #### [facility] [address] [place] [address] Dr. Ashlie Hills Glucose Ql (U) Negative Normal NEGATIVE The [facility] Comment on above: Performed By: #### C VDAGS #### [facility] [address] [place] [address] Dr. Ashlie Hills Hemoglobin Ql (U) TRACE-INTACT Abnormal NEGATIVE [facility] Comment on above: Performed By: #### C VDAGS #### [facility] [address] [place] [address] Dr. Ashlie Hills Ketones Ql (U) Negative Normal NEGATIVE The [facility] Comment on above: Performed By: #### C VDAGS #### [facility] [address] [place] [address] Dr. Ashlie Hills LEUKOCYTES Negative Normal NEGATIVE The [facility] Comment on above: Performed By: #### C VDAGS #### [facility] [address] [place] [address] Dr. Ashlie Hills MUCOUS NONE SEEN Normal NONE SEEN [facility] Comment on above: Performed By: #### C VDAGS #### [facility] [address] [place] [address] Dr. Ashlie Hills Nitrite Ql (U) Negative Normal NEGATIVE The [facility] Comment on above: Performed By: #### C VDAGS #### [facility] [address] [place] [address] Dr. Ashlie Hills pH (U) 5.0 [pH] Normal 5-9 [facility] Comment on above: Performed By: #### C VDAGS #### [facility] [address] [place] [address] Dr. Ashlie Hills RBC 0-2 Normal 0-2 [facility] Comment on above: Performed By: #### C VDAGS #### [facility] [address] [place] [address] Dr. Ashlie Hills SPEC GRAVITY 1.030 Abnormal 1.005-<=1.025 The [facility] Comment on above: Performed By: #### C VDAGS #### [facility] [address] [place] [address] Dr. Ashlie Hills UA PROTEIN 100 mg/dl Abnormal NEGATIVE/ TRACE [facility] Comment on above: Performed By: #### C VDAGS #### [facility] [address] [place] [address] Dr. Ashlie Hills Urobilinogen Qn (U) 0.2 {Little'U}/dL Normal 0.2 - 1. 0 [facility] Comment on above: Performed By: #### C VDAGS #### [facility] [address] [place] [address] Dr. Ashlie Hills WBC NONE SEEN Normal NONE SEEN [facility] Comment on above: Performed By: #### C VDAGS #### [facility] [address] [place] [address] Dr. Ashlie Hills CBC AUTO DIFFon 11-22-2022 BASO # 0.0 103/ul Normal 0.0-0.1 [facility] Comment on above: Performed By: #### C BC #### [facility] [address] [address] [address] Ashlie Hills Basophils/100 WBC (Bld) 0.3 % Normal 0.2-2.0 [facility] Comment on above: Performed By: #### C BC #### [facility] [address] [place] [address] Dr. Ashlie Hills EO # 0.4 103/ul Normal 0.0-0.7 [facility] Comment on above: Performed By: #### C BC #### [facility] [address] [place] [address] Dr. Ashlie Hills Eosinophils/100 WBC (Bld) 3.0 % Normal 0.9-7.0 [facility] Comment on above: Performed By: #### C BC #### [facility] [address] [place] [address] Dr. Ashlie Hills Erythrocyte distribution width (RBC) [Ratio] 15.3 % Critically high 11.0-15.0 [facility] Comment on above: Performed By: #### C BC #### [facility] [address] [place] [address] Dr. Ashlie Hills Hematocrit (Bld) [Volume fraction] 52.4 % Critically high 36.0-48.0 [facility] Comment on above: Performed By: #### C BC #### [facility] [address] [place] [address] Dr. Ashlie Hills Hemoglobin (Bld) [Mass/Vol] 16.8 g/dL Critically high 12.0-16.0 [facility] Comment on above: Performed By: #### C BC #### [facility] [address] [place] [address] Dr. Ashlie Hills IG # 0.04 10e3/ul Critically high 0.00-0.03 [facility] Comment on above: Performed By: #### C BC #### [facility] [address] [place] [address] Dr. Ashlie Hills IG % 0.3 % Normal 0.0-0.5 [facility] Comment on above: Performed By: #### C BC #### [facility] [address] [place] [address] Dr. Ashlie Hills LYMPH # 4.5 103/ul Critically high 1.2-3.8 [facility] Comment on above: Performed By: #### C BC #### [facility] [address] [place] [address] Dr. Ashlie Hills Lymphocytes/100 WBC (Bld) 33.2 % Normal 20.5-60.0 [facility] Comment on above: Performed By: #### C BC #### [facility] [address] [place] [address] Dr. Ashlie Hills MANUAL DIFF REQ NO Normal [facility] Comment on above: Performed By: #### C BC #### [facility] [address] [place] [address] Dr. Ashlie Hills MCH (RBC) [Entitic mass] 28.0 pg Normal 26.7-34.0 [facility] Comment on above: Performed By: #### C BC #### [facility] [address] [place] [address] Dr. Ashlie Hills MCHC (RBC) [Mass/Vol] 32.1 g/dL Normal 29.9-35.2 [facility] Comment on above: Performed By: #### C BC #### [facility] [address] [place] [address] Dr. Ashlie Hills MCV (RBC) [Entitic vol] 87.3 fL Normal 81.0-99.0 [facility] Comment on above: Performed By: #### C BC #### [facility] [address] [place] [address] Dr. Ashlie Hills MONO # 0.8 103/ul Normal 0.3-0.8 [facility] Comment on above: Performed By: #### C BC #### [facility] [address] [place] [address] Dr. Ashlie Hills Monocytes/100 WBC (Bld) 5.7 % Normal 1.7-12.0 [facility] Comment on above: Performed By: #### C BC #### [facility] [address] [place] [address] Dr. Ashlie Hills NEUT # 7.8 103/ul Critically high 1.4-6.5 [facility] Comment on above: Performed By: #### C BC #### [facility] [address] [place] [address] Dr. Ashlie Hills Neutrophils/100 WBC (Bld) 57.5 % Normal 43.0-75.0 [facility] Comment on above: Performed By: #### C BC #### [facility] [address] [place] [address] Dr. Ashlie Hills Platelet mean volume (Bld) [Entitic vol] 12.0 fL Normal 9.5-13.5 [facility] Comment on above: Performed By: #### C BC #### [facility] [address] [place] [address] Dr. Ashlie Hills PLT 152 103/ul Normal 150-450 [facility] Comment on above: Performed By: #### C BC #### [facility] [address] [place] [address] Dr. Ashlie Hills RBC 6.00 106/ul Critically high 4.20-5.40 [facility] Comment on above: Performed By: #### C BC #### [facility] [address] [place] [address] Dr. Ashlie Hills WBC 13.6 103/ul Critically high 4.0-11.0 [facility] Comment on above: Performed By: #### C BC #### [facility] [address] [place] [address] Dr. Ashlie Hills LIPID PROFILEon 11-22-2022 CHOL-HDL RATIO NORM SEE BELOW Normal [facility] Comment on above: Result Comment: 3.3 - 4.4 LOW RISK 4.4 - 7.1 AVERAGE RISK 7.1 - 11.0 MODERATE RISK >11.0 HIGH RISK Performed By: #### C BC #### [facility] [address] [place], [place] [address] Dr. Ashlie Hills Cholesterol [Mass/Vol] 139 mg/dL Normal <=200 [facility] Comment on above: Performed By: #### C BC #### [facility] [address] [place], [place] [address] Dr. Ashlie Hills Cholesterol in HDL [Mass/Vol] 35 mg/dL Critically low 40-60 [facility] Comment on above: Performed By: #### C BC #### [facility] [address] [address] [address] Ashlie Hills Cholesterol in LDL [Mass/Vol] 67.4 mg/dL Normal [facility] Comment on above: Performed By: #### C BC #### [facility] [address] [address] [address] Ashlie Hills Cholesterol.total/Gianna sterol in HDL [Mass ratio] 4.0 {ratio} Normal [facility] Comment on above: Performed By: #### C BC #### [facility] [address] [address] [address] Ashlie Hills HDL NORMAL > or = 60 mg/dl - LOW CARDIOVASCULAR RISK <40 mg/dl - HIGH CARDIOVASCULAR RISK Normal [facility] Comment on above: Performed By: #### C BC #### [facility] [address] [address] [address] Ashlie Hills LDL CALC NORMAL SEE BELOW Normal [facility] Comment on above: Result Comment: <100 mg/dl OPTIMAL 100 - 129 mg/dl NEAR OR ABOVE OPTIMAL 130 - 159 mg/dl BORDERLINE HIGH 160 - 189 mg/dl HIGH >190 mg/dl VERY HIGH Performed By: #### C BC #### [facility] [address] [address] [address] Ashlie Hills Triglyceride [Mass/Vol] 183 mg/dL Critically high <=150 [facility] Comment on above: Performed By: #### C BC #### [facility] [address] [address] [address] Ashlie Hills VLDL CALC 36.6 mg/dL Normal [facility] Comment on above: Performed By: #### C BC #### [facility] [address] [place], [place] [address] Dr. Ashlie Hills MG MAMM SCREEN 3D ALEX CADon 11-22-2022 MG MAMM SCREEN 3D ALEX CAD Patient: MITZI MACIAS Exam Date: 11/22/2022 : 1970 Gender:F Ordering : SHOE COVERER MCKAYLA BLAS SHOE COVERER Admission #: [id number] Family : Order #: [id number] CLICK HERE TO VIEW EXAM RADIOLOGY REPORT [...] at age 75. LOCATION: [facility] BREAST COMPOSITION: Almost entirely fatty. [...] 11/22/2022 at 12:09 Normal [facility] PROF 14(COMP METB)on 023 Albumin [Mass/Vol] 3.0 g/dL Critically low 3.4-5.0 Th e [facility] Comment on above: Performed By: #### C BC #### [facility] [address] [place], [place] [address] Dr. Ashlie Hills Albumin/Globulin [Mass ratio] 0.6 {ratio} Normal [facility] Comment on above: Performed By: #### C BC #### [facility] [address] [address] [address] Ashlie Hills ALP [Catalytic activity/Vol] 68 U/L Normal 46-116 [facility] Comment on above: Performed By: #### C BC #### [facility] [address] [address] [address] Ashlie Hills ALT [Catalytic activity/Vol] 14 U/L Normal 14-59 [facility] Comment on above: Performed By: #### C BC #### [facility] [address] [address] [address] Ashlie Hills Anion gap [Moles/Vol] 12.1 mmol/L Normal [facility] Comment on above: Performed By: #### C BC #### [facility] [address] [address] [address] Ashlie Hills AST [Catalytic activity/Vol] 9 U/L Critically low 15-37 [facility] Comment on above: Performed By: #### C BC #### [facility] [address] [address] [address] Ashlie Hills Bilirubin [Mass/Vol] 0.4 mg/dL Normal 0.2-1.0 [facility] Comment on above: Performed By: #### C BC #### [facility] [address] [address] [address] Ashlie Hills Calcium [Mass/Vol] 9.0 mg/dL Normal 8.5-10.1 [facility] Comment on above: Performed By: #### C BC #### [facility] [address] [address] [address] Ashlie Hills Chloride [Moles/Vol] 105 mmol/L Normal 98-107 [facility] Comment on above: Performed By: #### C BC #### [facility] [address] [address] [address] Ashlie Hills CO2 [Moles/Vol] 30.7 mmol/L Normal 21.0-32.0 [facility] Comment on above: Performed By: #### C BC #### [facility] [address] [address] [address] Ashlie Hills Creatinine [Mass/Vol] 0.77 mg/dL Normal 0.55-1.02 [facility] Comment on above: Performed By: #### C BC #### [facility] [address] [address] [address] Ashlie Hills EGFR-AF JORDANIAN >60 Normal >=60 [facility] Comment on above: Performed By: #### C BC #### [facility] [address] [address] [address] Ashlie Hills EGFR-NON AF JORDANIAN >60 Normal >=60 [facility] Comment on above: Performed By: #### C BC #### [facility] [address] [place] [address] Dr. Ashlie Hills Globulin (S) [Mass/Vol] 4.8 g/dL Normal [facility] Comment on above: Performed By: #### C BC #### [facility] [address] [place] [address] Dr. Ashlie Hills Glucose [Mass/Vol] 162 mg/dL Critically high 74-106 [facility] Comment on above: Performed By: #### C BC #### [facility] [address] [place] [address] Dr. Ashlie Hills Potassium [Moles/Vol] 3.8 mmol/L Normal 3.5-5.1 [facility] Comment on above: Performed By: #### C BC #### [facility] [address] [place] [address] Dr. Ashlie Hills Protein [Mass/Vol] 7.8 g/dL Normal 6.4-8.2 [facility] Comment on above: Performed By: #### C BC #### [facility] [address] [place] [address] Dr. Ashlie Hills Sodium [Moles/Vol] 144 mmol/L Normal 136-145 [facility] Comment on above: Performed By: #### C BC #### [facility] [address] [place] [address] Dr. Ashlie Hills Urea nitrogen [Mass/Vol] 24.0 mg/dL Critically high 7.0-18.0 [facility] Comment on above: Performed By: #### C BC #### [facility] [address] [place] [address] Dr. Ashlie Hills Urea nitrogen/Creatinine [Mass ratio] 31.2 mg/mg Normal [facility] Comment on above: Performed By: #### C BC #### [facility] [address] [place] [address] Dr. Ashlie Hills CBC AUTO DIFFon 10-05-2022 BASO # 0.1 103/ul Normal 0.0-0.1 [facility] Comment on above: Performed By: #### C BC #### [facility] [address] [place] [address] Dr. Ashlie Hills Basophils/100 WBC (Bld) 0.6 % Normal 0.2-2.0 [facility] Comment on above: Performed By: #### C BC #### [facility] [address] [place] [address] Dr. Ashlie Hills EO # 0.3 103/ul Normal 0.0-0.7 [facility] Comment on above: Performed By: #### C BC #### [facility] [address] [place] [address] Dr. Ashlie Hills Eosinophils/100 WBC (Bld) 2.1 % Normal 0.9-7.0 [facility] Comment on above: Performed By: #### C BC #### [facility] [address] [place] [address] Dr. Ashlie Hills Erythrocyte distribution width (RBC) [Ratio] 15.9 % Critically high 11.0-15.0 [facility] Comment on above: Performed By: #### C BC #### [facility] [address] [place] [address] Dr. Ashlie Hills Hematocrit (Bld) [Volume fraction] 51.8 % Critically high 36.0-48.0 [facility] Comment on above: Performed By: #### C BC #### [facility] [address] [address] [address] Ashlie Hills Hemoglobin (Bld) [Mass/Vol] 16.6 g/dL Critically high 12.0-16.0 [facility] Comment on above: Performed By: #### C BC #### [facility] [address] [address] [address] Ashlie Hills IG # 0.03 10e3/ul Normal 0.00-0.03 [facility] Comment on above: Performed By: #### C BC #### [facility] [address] [place] [address] Dr. Ashlie Hills IG % 0.2 % Normal 0.0-0.5 [facility] Comment on above: Performed By: #### C BC #### [facility] [address] [place] [address] Dr. Ashlie Hills LYMPH # 3.9 103/ul Critically high 1.2-3.8 [facility] Comment on above: Performed By: #### C BC #### [facility] [address] [place] [address] Dr. Ashlie Hills Lymphocytes/100 WBC (Bld) 31.7 % Normal 20.5-60.0 [facility] Comment on above: Performed By: #### C BC #### [facility] [address] [place] [address] Dr. Ashlie Hills MANUAL DIFF REQ NO Normal [facility] Comment on above: Performed By: #### C BC #### [facility] [address] [place] [address] Dr. Ashlie Hills MCH (RBC) [Entitic mass] 27.9 pg Normal 26.7-34.0 [facility] Comment on above: Performed By: #### C BC #### [facility] [address] [place] [address] Dr. Ashlie Hills MCHC (RBC) [Mass/Vol] 32.0 g/dL Normal 29.9-35.2 [facility] Comment on above: Performed By: #### C BC #### [facility] [address] [place], [place] [id number] Dr. Ashlie Hills MCV (RBC) [Entitic vol] 87.1 fL Normal 81.0-99.0 [facility] Comment on above: Performed By: #### C BC #### [facility] [address] [place] [address] Dr. Ashlie Hills MONO # 0.7 103/ul Normal 0.3-0.8 [facility] Comment on above: Performed By: #### C BC #### [facility] [address] [place] [address] Dr. Ashlie Hills Monocytes/100 WBC (Bld) 5.8 % Normal 1.7-12.0 [facility] Comment on above: Performed By: #### C BC #### [facility] [address] [place] [address] Dr. Ashlie Hills NEUT # 7.3 103/ul Critically high 1.4-6.5 [facility] Comment on above: Performed By: #### C BC #### [facility] [address] [place] [address] Dr. Ashlie Hills Neutrophils/100 WBC (Bld) 59.6 % Normal 43.0-75.0 [facility] Comment on above: Performed By: #### C BC #### [facility] [address] [place] [address] Dr. Ashlie Hills Platelet mean volume (Bld) [Entitic vol] 11.7 fL Normal 9.5-13.5 [facility] Comment on above: Performed By: #### C BC #### [facility] [address] [place] [address] Dr. Ashlie Hills PLT 117 103/ul Critically low 150-450 [facility] Comment on above: Performed By: #### C BC #### [facility] [address] [place], [place] [id number] Dr. Aslhie Hills RBC 5.95 106/ul Critically high 4.20-5.40 [facility] Comment on above: Performed By: #### C BC #### [facility] [address] [place] [address] Dr. Ashlie Hills WBC 12.3 103/ul Critically high 4.0-11.0 [facility] Comment on above: Performed By: #### C BC #### [facility] [address] [address] [address] ABD/PELV W CONon [...] Date: 2022-10-05 13:13 Normal [facility] ER URINE PROFILEon 3 Bilirubin Ql (U) Negative Normal NEGATIVE [facility] Comment on above: Performed By: #### P OCGLUC #### [facility] [address] [address] [address] Ashlie Hills Clarity (U) CLEAR Normal CLEAR [facility] Comment on above: Performed By: #### P OCGLUC #### [facility] [address] [address] [address] Ashlie Hills Color (U) YELLOW Normal YELLOW [facility] Comment on above: Performed By: #### P OCGLUC #### [facility] [address] [address] [address] Ashlie HOBBS A micrscopic examination will be performed if indicated. Normal [facility] Comment on above: Performed By: #### P OCGLUC #### [facility] [address] [address] [address] Ashlie Hills Glucose Ql (U) Negative Normal NEGATIVE [facility] Comment on above: Performed By: #### P OCGLUC #### [facility] [address] [address] [address] Ashlie Hills Hemoglobin Ql (U) Negative Normal NEGATIVE [facility] Comment on above: Performed By: #### P OCGLUC #### [facility] [address] [address] [address] Ashlie Hills Ketones Ql (U) Negative Normal NEGATIVE [facility] Comment on above: Performed By: #### P OCGLUC #### [facility] [address] [address] [address] Ashlie Hills LEUKOCYTES Negative Normal NEGATIVE [facility] Comment on above: Performed By: #### P OCGLUC #### [facility] [address] [address] [address] Ashlie Hills Nitrite Ql (U) Negative Normal NEGATIVE [facility] Comment on above: Performed By: #### P OCGLUC #### [facility] [address] [place] [address] Dr. Ashlie Hills pH (U) 6.0 [pH] Normal 5-9 [facility] Comment on above: Performed By: #### P OCGLUC #### [facility] [address] [address] [address] Ashlie Hills Protein (U) [Mass/Vol] 100 mg/dL Abnormal NEGAT YURY/ TRACE [facility] Comment on above: Performed By: #### P OCGLUC #### [facility] [address] [place] [address] Dr. Ashlie Hills SPEC GRAVITY 1.010 Normal 1.005-<=1.025 [facility] Comment on above: Performed By: #### P OCGLUC #### [facility] [address] [place] [address] Dr. Ashlie Hills UR MICRO IND INDICATED Normal [facility] Comment on above: Performed By: #### P OCGLUC #### [facility] [address] [place] [address] Dr. Ashlie Hills Urobilinogen Qn (U) 1.0 {Little'U}/dL Normal 0.2 - 1. 0 [facility] Comment on above: Performed By: #### P OCGLUC #### [facility] [address] [place] [address] Dr. Ashlie Hills LIPASEon 10-05-2022 Lipase [Catalytic activity/Vol] 1771.0 U/L Critically high 73.0-393.0 [facility] Comment on above: Performed By: #### C BC #### [facility] [address] [place] [address] Dr. Ashlie Hills PREG HCG QUALon 10-05-2022 , QUAL Negative Normal NEGATIVE [facility] Comment on above: Performed By: #### P OCGLUC #### [facility] [address] [place] [address] Dr. Ashlie Hills PROF 14(COMP METB)on 023 Albumin [Mass/Vol] 3.2 g/dL Critically low 3.4-5.0 [facility] Comment on above: Performed By: #### C BC #### [facility] [address] [place] [address] Dr. Ashlie Hills Albumin/Globulin [Mass ratio] 0.7 {ratio} Normal [facility] Comment on above: Performed By: #### C BC #### [facility] [address] [place] [address] Dr. Ashlie Hills ALP [Catalytic activity/Vol] 70 U/L Normal 46-116 [facility] Comment on above: Performed By: #### C BC #### [facility] [address] [place] [address] Dr. Ashlie Hills ALT [Catalytic activity/Vol] 11 U/L Critically low 14-59 [facility] Comment on above: Performed By: #### C BC #### [facility] [address] [address] [address] Ashlie Hills Anion gap [Moles/Vol] 10.3 mmol/L Normal [facility] Comment on above: Performed By: #### C BC #### [facility] [address] [address] [address] Ashlie Hills AST [Catalytic activity/Vol] 11 U/L Critically low 15-37 [facility] Comment on above: Performed By: #### C BC #### [facility] [address] [address] [address] Ashlie Hills Bilirubin [Mass/Vol] 0.9 mg/dL Normal 0.2-1.0 [facility] Comment on above: Performed By: #### C BC #### [facility] [address] [address] [address] Ashlie Hills Calcium [Mass/Vol] 9.3 mg/dL Normal 8.5-10.1 [facility] Comment on above: Performed By: #### C BC #### [facility] [address] [address] [address] Ashlie Hills Chloride [Moles/Vol] 105 mmol/L Normal 98-107 [facility] Comment on above: Performed By: #### C BC #### [facility] [address] [address] [address] Ashlie Hills CO2 [Moles/Vol] 30.6 mmol/L Normal 21.0-32.0 [facility] Comment on above: Performed By: #### C BC #### [facility] [address] [address] [address] Ashlie Hills Creatinine [Mass/Vol] 0.62 mg/dL Normal 0.55-1.02 [facility] Comment on above: Performed By: #### C BC #### [facility] [address] [address] [address] Ashlie Hills EGFR-AF JORDANIAN >60 Normal >=60 [facility] Comment on above: Performed By: #### C BC #### [facility] [address] [place] [address] Dr. Ashlie Hills EGFR-NON AF JORDANIAN >60 Normal >=60 [facility] Comment on above: Performed By: #### C BC #### [facility] [address] [place] [address] Dr. Ashlie Hills Globulin (S) [Mass/Vol] 4.6 g/dL Normal T [facility] Comment on above: Performed By: #### C BC #### [facility] [address] [address] [address] Ashlie Hills Glucose [Mass/Vol] 85 mg/dL Normal 74-106 [facility] Comment on above: Performed By: #### C BC #### [facility] [address] [place] [address] Dr. Ashlie Hills Potassium [Moles/Vol] 3.9 mmol/L Normal 3.5-5.1 [facility] Comment on above: Performed By: #### C BC #### [facility] [address] [place] [address] Dr. Ashlie Hills Protein [Mass/Vol] 7.8 g/dL Normal 6.4-8.2 [facility] Comment on above: Performed By: #### C BC #### [facility] [address] [place] [address] Dr. Ashlie Hills Sodium [Moles/Vol] 142 mmol/L Normal 136-145 [facility] Comment on above: Performed By: #### C BC #### [facility] [address] [place] [address] Dr. Ashlie Hills Urea nitrogen [Mass/Vol] 12.0 mg/dL Normal 7.0-18.0 [facility] Comment on above: Performed By: #### C BC #### [facility] [address] [place] [address] Dr. Ashlie Hills Urea nitrogen/Creatinine [Mass ratio] 19.4 mg/mg Normal [facility] Comment on above: Performed By: #### C BC #### [facility] [address] [place] [address] Dr. Ashlie Hills URINE MICROSCOPIC ONLYon BACTERIA TRACE Abnormal NONE SEEN [facility] Comment on above: Performed By: #### P OCGLUC #### [facility] [address] [place] [address] Dr. Ashlie Hills Bacteria identified Cx Nom (U) NOT INDICATED Normal [facility] Comment on above: Performed By: #### P OCGLUC #### [facility] [address] [place] [address] Dr. Ashlie Hills CAST NONE SEEN Normal NONE SEEN [facility] Comment on above: Performed By: #### P OCGLUC #### [facility] [address] [place] [address] Dr. Ashlie Hills Crystals LM Nom (Urine sed) NONE SEEN Normal NONE SEEN [facility] Comment on above: Performed By: #### P OCGLUC #### [facility] [address] [place] [address] Dr. Ashlie Hills Epithelial cells LM Ql (Urine sed) MODERATE Abnormal NONE SEEN /RARE [facility] Comment on above: Performed By: #### P OCGLUC #### [facility] [address] [place] [address] Dr. Ashlie Hills MUCOUS NONE SEEN Normal NONE SEEN [facility] Comment on above: Performed By: #### P OCGLUC #### [facility] [address] [place] [address] Dr. Ashlie Hills RBC 0-2 Normal 0-2 [facility] Comment on above: Performed By: #### P OCGLUC #### [facility] [address] [place] [address] Dr. Ashlie Hills WBC 0-2 Abnormal NONE SEEN [facility] Comment on above: Performed By: #### P OCGLUC #### [facility] [address] [place] [address] Dr. Ashlie Hills Covid-19 PCR (CVDTB)on 09-06 SARS-CoV-2 (COVID-19) RNA MADDY+probe Ql (Unsp spec) Detected Abnormal NOT DETECTED [facility] Comment on above: Result Comment: This test is not yet approved or cleared by the [place] FDA. When there are no FDA-approved or cleared tests available, and other criteria are met, FDA can make tests available under an emergency access mechanism called an Emergency Use Authorization (EUA). The EUA for this test is supported by the [place] of Health and Human Service's declaration that [...] By: #### C VDAGS #### [facility] [address] [place] [address] Dr. Ashlie Hills INFLUENZA A AND B [facility] 09-21 [facility] SEE BELOW Normal [facility] Comment on above: Result Comment: Nega tive for Flu A protein angiten. Infection due to Flu A cannot be ruled out. Flu A angiten in the sample may be below the detection limit of the test. Performed By: #### I NFLUAB #### [facility] [address] [place] [address] Dr. Ashlie Hills [facility] Normal [facility] Comment on above: Result Comment: Nega tive for Flu B protein antigen. Infection due to Flu B cannot be ruled out. Flu B antigen in the sample may be below the detection limit of the test. Performed By: #### I NFLUAB #### [facility] [address] [place] [address] Dr. Ashlie Hills INFLUENZA A AG Negative Normal NEGATIVE SEE COMMENT [facility] Comment on above: Performed By: #### I NFLUAB #### [facility] [address] [place] [address] Dr. Ashlie Hills INFLUENZA B AG Negative Normal NEGATIVE SEE COMMENT [facility] Comment on above: Performed By: #### I NFLUAB #### [facility] [address] [place] [address] ABD/PELV W CONon [...] dating back to at least 10/21/2018, unchanged. [email or web address].ncbi.[facility].nih.gov/pmc/artic les/[id number]/ Electronically authenticated by: COLLIN HUERTAS Date: 2022-07-27 14:56 Normal [facility] CREATININEon 07-18-2022 Creatinine [Mass/Vol] 0.81 mg/dL Normal 0.55-1.02 [facility] Comment on above: Performed By: #### C BC #### [facility] [address] [place] [address] Dr. Ashlie Hills EGFR-AF JORDANIAN >60 Normal >=60 [facility] Comment on above: Performed By: #### C BC #### [facility] [address] [place] [address] Dr. Ashlie Hills EGFR-NON AF JORDANIAN >60 Normal >=60 [facility] Comment on above: Performed By: #### C BC #### [facility] [address] [place] [address] LOW EXT W [...] PATRICIA VELOZ Date: 2022-07-18 14:58 Normal [facility] XR KNEE LT 1_2 Von [...] Date: 2022-07-18 12:00 Normal [facility] Covid-19 PCR (CVDTB)on 06-09 SARS-CoV-2 (COVID-19) RNA MADDY+probe Ql (Unsp spec) Not detected Normal NOT DETECTED [facility] Comment on above: Result Comment: This test is not yet approved or cleared by the [place] FDA. When there are no FDA-approved or cleared tests available, and other criteria are met, FDA can make tests available under an emergency access mechanism called an Emergency Use Authorization (EUA). The EUA for this test is supported by the [place] of Health and Human Service's (HHS's) declaration [...] By: #### C BC #### [facility] [address] [place] [address] Dr. Ashlie Hills INFLUENZA A AND B AGon 07-06 INFLUANE SEE BELOW Normal [facility] Comment on above: Result Comment: Nega tive for Flu A protein angiten. Infection due to Flu A cannot be ruled out. Flu A angiten in the sample may be below the detection limit of the test. Performed By: #### C BC #### [facility] [address] [place] [address] Dr. Ashlie Hills INFLUBNEG SEE BELOW Normal [facility] Comment on above: Result Comment: Nega tive for Flu B protein antigen. Infection due to Flu B cannot be ruled out. Flu B antigen in the sample may be below the detection limit of the test. Performed By: #### C BC #### [facility] [address] [place] [address] Dr. Ashlie Hills INFLUENZA A AG Negative Normal NEGATIVE SEE COMMENT [facility] Comment on above: Performed By: #### C BC #### [facility] [address] [place] [address] Dr. Ashlie Hills INFLUENZA B AG Negative Normal NEGATIVE SEE COMMENT [facility] Comment on above: Performed By: #### C BC #### [facility] [address] [place] [address] Dr. Ashlie Hills POINT OF CARE GLUCOSEon 10- Glucose [Mass/Vol] 108 mg/dL Critically high 74-106 T [facility] Comment on above: Performed By: #### C BC #### [facility] [address] [place] [address] Dr. Ashlie Hills RAGHU by IFAon 03-07-2022 Antinuclear Antibodies, IFA Negative Normal [facility] Comment on above: Result Comment: Nega tive <1:80 Borderline 1:80 Positive >1:80 ICAP nomenclature: AC-0 For more information about Hep-2 cell patterns use ANApatterns.org, the official website for the International Consensus on Antinuclear Antibody (RAGHU) Patterns (ICAP). Performed By: #### A NAIFA #### [facility] [address] [place] [address] Dr. Ashlie Hills IMMUNOFIXATION (TREVON), URINEo n 03-07-2022 TREVON Interpretation:U Comment Normal [facility] Comment on above: Result Comment: No m onoclonality detected. Performed By: #### C BC #### [facility] [address] [place] [address] Dr. Ashlie Hills IMMUNOFIXATION(TREVON),PROTEIN ELEC(PE),FREon 03-07-2022 Albumin [Mass/Vol] 3.0 g/dL Normal 2.9-4.4 [facility] Comment on above: Performed By: #### I NFLUAB #### [facility] [address] [place] [address] Dr. Ashlie Hills Albumin/Globulin [Mass ratio] 0.8 {ratio} Normal 0.7-1.7 [facility] Comment on above: Performed By: #### I NFLUAB #### [facility] [address] [place] [address] Dr. Ashlie Hills Yfmmg-9-Thirjmqw 0.3 g/dL Normal 0.0-0.4 [facility] Comment on above: Performed By: #### I NFLUAB #### [facility] [address] [place] [address] Dr. Ashlie Hills Qgtxu-7-Dxgcbrxt 1.0 g/dL Normal 0.4-1.0 [facility] Comment on above: Performed By: #### I NFLUAB #### [facility] [address] [place] [address] Dr. Ashlie Hills Beta Globulin 1.8 g/dL Critically high 0.7-1.3 [facility] Comment on above: Performed By: #### I NFLUAB #### [facility] [address] [address] [address] Ashlie Hills Free [place] Lt Chains,S 45.2 mg/L Critically high 3.3-19.4 [facility] Comment on above: Performed By: #### I NFLUAB #### [facility] [address] [place] [address] Dr. Ashlie Hills Free Lambda Lt Chains,S 40.3 mg/L Critically high 5.7-26. 3 [facility] Comment on above: Performed By: #### I NFLUAB #### [facility] [address] [place] [address] Dr. Ashlie Hills Gamma Globulin 0.8 g/dL Normal 0.4-1.8 [facility] Comment on above: Performed By: #### I NFLUAB #### [facility] [address] [place] [address] Dr. Ashlie Hills Globulin (S) [Mass/Vol] 3.9 g/dL Normal 2.2-3.9 [facility] Comment on above: Performed By: #### I NFLUAB #### [facility] [address] [place] [address] Dr. Ashlie Hills Immunofixation Result, Serum Comment Normal [facility] Comment on above: Result Comment: No m onoclonality detected. Performed By: #### I NFLUAB #### [facility] [address] [place] [address] Dr. Ashlie Hills Immunoglobulin A, Qn, Serum 776 mg/dL Critically high 87-352 [facility] Comment on above: Performed By: #### I NFLUAB #### [facility] [address] [place] [address] Dr. Ashlie Hills Immunoglobulin G, Qn, Serum 955 mg/dL Normal 586-1602 [facility] Comment on above: Performed By: #### I NFLUAB #### [facility] [address] [place] [address] Dr. Ashlie Hills Immunoglobulin M, Qn, Serum 39 mg/dL Normal 26-217 [facility] Comment on above: Performed By: #### I NFLUAB #### [facility] [address] [address] [address] Ashlie Hills [place]/Lambda Ratio, S 1.12 Normal 0.26-1.65 [facility] Comment on above: Performed By: #### I NFLUAB #### [facility] [address] [address] [address] Ashlie Hills M-Bright Not Observed Normal Not Observed [facility] Comment on above: Performed By: #### I NFLUAB #### [facility] [address] [place] [address] Dr. Ashlie Hills PDF . Normal [facility] Comment on above: Performed By: #### I NFLUAB #### [facility] [address] [place] [address] Dr. Ashlie Hills Please note: Comment Normal [facility] Comment on above: Result Comment: Prot ein electrophoresis scan will follow via computer, mail, or auto adjudication specialist delivery. Performed By: #### I NFLUAB #### [facility] [address] [place] [address] Dr. Ashlie Hills Protein [Mass/Vol] 6.9 g/dL Normal 6.0-8.5 [facility] Comment on above: Performed By: #### I NFLUAB #### [facility] [address] [place] [address] Dr. Ashlie Hills C-PEPTIDE, SERUMon C-Peptide, Serum 3.1 ng/mL Normal 1.1-4.4 [facility] Comment on above: Result Comment: C-Pe ptide reference interval is for fasting patients. Performed By: #### C PEPT #### [facility] [address] [place] [address] Dr. Ashlie Hills HEP B SURFACE ANTIGEN SCREEN on 03-04-2022 HBsAg Screen Negative Normal Negative [facility] Comment on above: Performed By: #### C BC #### [facility] [address] [place] [address] Dr. Ashlie Hills HEPATITIS C VIRUS AB W/ REFL EX QUANTon 03-04-2022 HCV AB <0.1 Normal 0.0-0.9 [facility] Comment on above: Performed By: #### I NFLUAB #### [facility] [address] [address] [address] Ashlie Hills Interpretation: Comment Normal [facility] Comment on above: Result Comment: Nega tive Not infected with HCV, unless recent infection is suspected or other evidence exists to indicate HCV infection. Performed By: #### I NFLUAB #### [facility] [address] [address] [address] Ashlie Hills MICROALBUMIN/ CREATININE RAT IOon 03-04-2022 Albumin, Urine 367.4 ug/mL Normal Not Estab. [facility] Comment on above: Performed By: #### C BC #### [facility] [address] [place] [address] Dr. Ashlie Hills Albumin/ Creatinine Ratio 239 mg/g creat Critically high 0-29 [facility] Comment on above: Result Comment: Norm al: 0 - 29 Moderately increased: 30 - 300 Severely increased: >300 Performed By: #### C BC #### [facility] [address] [address] [address] Ashlie Hills Creatinine, Urine 153.9 mg/dL Normal Not Estab. [facility] Comment on above: Performed By: #### C BC #### [facility] [address] [place] [address] Dr. Ashlie Hills VIT D 25-OH LABCORPon 2021 Vitamin D, 25-Hydroxy <4.0 Critically low 30.0-100.0 [facility] Comment on above: Result Comment: Graciela min D deficiency has been defined by the [place] of Medicine and an Endocrine Society practice guideline as a level of serum 25-OH vitamin D less than 20 ng/mL (1,2). The Endocrine Society went on to further define vitamin D insufficiency as a level between 21 and 29 ng/mL (2). 1. IOM ([place] of Medicine). 2010. Dietary reference intakes for calcium and D. [place]: The National Academies Press. 2. Lynda MF, Keely OLIVEROS, Leandra LOPEZ, et al. Evaluation, treatment, and prevention of vitamin D deficiency: an Endocrine Society clinical practice guideline. JCEM. 2010; 96(7):1911-30. Performed By: #### C BC #### [facility] [address] [place] [address] Dr. Ashlie Hills GLYCOHEMOGLOBIN A1Con 2021 ADA RECOMMENDATION SEE BELOW Normal [facility] Comment on above: Result Comment: ADA RECOMMENDED LIMIT 4.0 - 6.0 ADA THERAPEUTIC TARGET < 7.0 ACTION SUGGESTED > 7.0 Performed By: #### C VDAGS #### [facility] [address] [place] [address] Dr. Ashlie Hills Glucose [Mass/Vol] 295 mg/dL Normal [facility] Comment on above: Performed By: #### C VDAGS #### [facility] [address] [place] [address] Dr. Ashlie Hills HbA1c (Bld) [Mass fraction] 11.9 % Critically high 4.5-6.2 [facility] Comment on above: Performed By: #### C VDAGS #### [facility] [address] [place] [address] Dr. Ashlie Hills HEMOGRAM AND PLATELon 2021 Hematocrit (Bld) [Volume fraction] 56.3 % Critically high 36.0-48.0 [facility] Comment on above: Performed By: #### C VDAGS #### [facility] [address] [place] [address] Dr. Ashlie Hills Hemoglobin (Bld) [Mass/Vol] 18.0 g/dL Critically high 12.0-16.0 [facility] Comment on above: Performed By: #### C VDAGS #### [facility] [address] [place] [address] Dr. Ashlie Hills MCH (RBC) [Entitic mass] 29.5 pg Normal 26.7-34.0 [facility] Comment on above: Performed By: #### C VDAGS #### [facility] [address] [place] [address] Dr. Ashlie Hills MCHC (RBC) [Mass/Vol] 32.0 g/dL Normal 29.9-35.2 [facility] Comment on above: Performed By: #### C VDAGS #### [facility] [address] [place] [address] Dr. Ashlie Hills MCV (RBC) [Entitic vol] 92.1 fL Normal 81.0-99.0 [facility] Comment on above: Performed By: #### C VDAGS #### [facility] [address] [place] [address] Dr. Ashlie Hills PLT 123 103/ul Critically low 150-450 [facility] Comment on above: Performed By: #### C VDAGS #### [facility] [address] [place] [address] Dr. Ashlie Hills RBC 6.11 106/ul Critically high 4.20-5.40 [facility] Comment on above: Performed By: #### C VDAGS #### [facility] [address] [place] [address] Dr. Ashlie Hills WBC 16.4 103/ul Critically high 4.0-11.0 [facility] Comment on above: Performed By: #### C VDAGS #### [facility] [address] [place] [address] Dr. Ashlie Hills LIPID PROFILEon 03-03-2022 CHOL-HDL RATIO NORM SEE BELOW Normal [facility] Comment on above: Result Comment: 3.3 - 4.4 LOW RISK 4.4 - 7.1 AVERAGE RISK 7.1 - 11.0 MODERATE RISK >11.0 HIGH RISK Performed By: #### C VDAGS #### [facility] [address] [place] [address] Dr. Ashlie Hills Cholesterol [Mass/Vol] 159 mg/dL Normal <=200 [facility] Comment on above: Performed By: #### C VDAGS #### [facility] [address] [place] [address] Dr. Ashlie Hills Cholesterol in HDL [Mass/Vol] 40 mg/dL Normal 40-60 [facility] Comment on above: Performed By: #### C VDAGS #### [facility] [address] [address] [address] Ashlie Hills Cholesterol in LDL [Mass/Vol] 81.8 mg/dL Normal [facility] Comment on above: Performed By: #### C VDAGS #### [facility] [address] [address] [address] Ashlie Hills Cholesterol.total/Gianna sterol in HDL [Mass ratio] 4.0 {ratio} Normal [facility] Comment on above: Performed By: #### C VDAGS #### [facility] [address] [address] [address] Ashlie Hills HDL NORMAL > or = 60 mg/dl - LOW CARDIOVASCULAR RISK <40 mg/dl - HIGH CARDIOVASCULAR RISK Normal [facility] Comment on above: Performed By: #### C VDAGS #### [facility] [address] [place] [address] Dr. Ashlie Hills LDL CALC NORMAL SEE BELOW Normal [facility] Comment on above: Result Comment: <100 mg/dl OPTIMAL 100 - 129 mg/dl NEAR OR ABOVE OPTIMAL 130 - 159 mg/dl BORDERLINE HIGH 160 - 189 mg/dl HIGH >190 mg/dl VERY HIGH Performed By: #### C VDAGS #### [facility] [address] [place] [address] Dr. Ashlie Hills Triglyceride [Mass/Vol] 186 mg/dL Critically high <=150 [facility] Comment on above: Performed By: #### C VDAGS #### [facility] [address] [place] [address] Dr. Ashlie Hills VLDL CALC 37.2 mg/dL Normal [facility] Comment on above: Performed By: #### C VDAGS #### [facility] [address] [place] [address] Dr. Ashlie Hills RENAL FUNCTION PANELon 03-03 Albumin [Mass/Vol] 3.1 g/dL Critically low 3.4-5.0 Th e [facility] Comment on above: Performed By: #### C BC #### [facility] [address] [place] [address] Dr. Ashlie Hills Calcium [Mass/Vol] 9.2 mg/dL Normal 8.5-10.1 [facility] Comment on above: Performed By: #### C BC #### [facility] [address] [address] [address] Ashlie Hills Chloride [Moles/Vol] 102 mmol/L Normal 98-107 [facility] Comment on above: Performed By: #### C BC #### [facility] [address] [address] [address] Ashlie Hills CO2 [Moles/Vol] 31.9 mmol/L Normal 21.0-32.0 [facility] Comment on above: Performed By: #### C BC #### [facility] [address] [place] [address] Dr. Ashlie Hills Creatinine [Mass/Vol] 0.68 mg/dL Normal 0.55-1.02 [facility] Comment on above: Performed By: #### C BC #### [facility] [address] [place] [address] Dr. Ashlie Hills EGFR-AF JORDANIAN >60 Normal >=60 [facility] Comment on above: Performed By: #### C BC #### [facility] [address] [place] [address] Dr. Ashlie Hills EGFR-NON AF JORDANIAN >60 Normal >=60 [facility] Comment on above: Performed By: #### C BC #### [facility] [address] [place] [address] Dr. Ashlie Hills Glucose [Mass/Vol] 131 mg/dL Critically high 74-106 [facility] Comment on above: Performed By: #### C BC #### [facility] [address] [place] [address] Dr. Ashlie Hills Phosphate [Mass/Vol] 4.0 mg/dL Normal 2.6-4.7 [facility] Comment on above: Performed By: #### C BC #### [facility] [address] [place] [address] Dr. Ashlie Hills Potassium [Moles/Vol] 4.0 mmol/L Normal 3.5-5.1 [facility] Comment on above: Performed By: #### C BC #### [facility] [address] [address] [address] Ashlie Hills Sodium [Moles/Vol] 141 mmol/L Normal 136-145 [facility] Comment on above: Performed By: #### C BC #### [facility] [address] [place] [address] Dr. Ashlie Hills Urea nitrogen [Mass/Vol] 17.0 mg/dL Normal 7.0-18.0 [facility] Comment on above: Performed By: #### C BC #### [facility] [address] [place] [address] Dr. Ashlie Hills UA RANDOM W/MICROSCOPICon BACTERIA NONE SEEN Normal NONE SEEN [facility] Comment on above: Performed By: #### I NFLUAB #### [facility] [address] [place] [address] Dr. Ashlie Hills Bilirubin Ql (U) Negative Normal NEGATIVE [facility] Comment on above: Performed By: #### I NFLUAB #### [facility] [address] [place] [address] Dr. Ashlie Hills CAST NONE SEEN Normal NONE SEEN [facility] Comment on above: Performed By: #### I NFLUAB #### [facility] [address] [place] [address] Dr. Ashlie Hills Clarity (U) CLEAR Normal CLEAR [facility] Comment on above: Performed By: #### I NFLUAB #### [facility] [address] [place] [address] Dr. Ashlie Hills Color (U) YELLOW Normal YELLOW [facility] Comment on above: Performed By: #### I NFLUAB #### [facility] [address] [place] [address] Dr. Ashlie Hills Crystals LM Nom (Urine sed) NONE SEEN Normal NONE SEEN [facility] Comment on above: Performed By: #### I NFLUAB #### [facility] [address] [place] [address] Dr. Ashlie Hills Epithelial cells LM Ql (Urine sed) FEW Abnormal NONE SEEN /RARE [facility] Comment on above: Performed By: #### I NFLUAB #### [facility] [address] [place] [address] Dr. Ashlie Hills Glucose Ql (U) Negative Normal NEGATIVE [facility] Comment on above: Performed By: #### I NFLUAB #### [facility] [address] [address] [address] Ashlie Hills Hemoglobin Ql (U) Negative Normal NEGATIVE [facility] Comment on above: Performed By: #### I NFLUAB #### [facility] [address] [place] [address] Dr. Ashlie Hills Ketones Ql (U) Negative Normal NEGATIVE [facility] Comment on above: Performed By: #### I NFLUAB #### [facility] [address] [place] [address] Dr. Ashlie Hills LEUKOCYTES Negative Normal NEGATIVE [facility] Comment on above: Performed By: #### I NFLUAB #### [facility] [address] [place] [address] Dr. Ashlie Hills MUCOUS NONE SEEN Normal NONE SEEN The [facility] Comment on above: Performed By: #### I NFLUAB #### [facility] [address] [place] [address] Dr. Ashlie Hills Nitrite Ql (U) Negative Normal NEGATIVE [facility] Comment on above: Performed By: #### I NFLUAB #### [facility] [address] [place] [address] Dr. Ashlie Hills pH (U) 5.5 [pH] Normal 5-9 [facility] Comment on above: Performed By: #### I NFLUAB #### [facility] [address] [place] [address] Dr. Ashlie Hills RBC 0-2 Normal 0-2 [facility] Comment on above: Performed By: #### I NFLUAB #### [facility] [address] [place] [address] Dr. Ashlie Hills SPEC GRAVITY >=1.030 Abnormal 1.005-<=1.025 [facility] Comment on above: Performed By: #### I NFLUAB #### [facility] [address] [place] [address] Dr. Ashlie Hills UA PROTEIN 100 mg/dl Abnormal NEGATIVE/ TRACE [facility] Comment on above: Performed By: #### I NFLUAB #### [facility] [address] [place] [address] Dr. Ashlie Hills Urobilinogen Qn (U) 0.2 {Little'U}/dL Normal 0.2 - 1. 0 [facility] Comment on above: Performed By: #### I NFLUAB #### [facility] [address] [place] [address] Dr. Ashlie Hills WBC NONE SEEN Normal NONE SEEN The [facility] Comment on above: Performed By: #### I NFLUAB #### [facility] [address] [place] [address] Dr. Ashlie Hills URIC ACID SERUMon 03-03-2022 Urate [Mass/Vol] 5.0 mg/dL Normal 2.6-6.0 [facility] Comment on above: Performed By: #### I NFLUAB #### [facility] [address] [place] [address] Dr. Ashlie Hills URINE T PROTEIN CREAT RATIOo n 03-03-2022 Protein (U) [Mass/Vol] 77.9 mg/dL Critically high <=12.0 [facility] Comment on above: Performed By: #### C VDAGS #### [facility] [address] [place] [address] Dr. Ashlie Hills UR PROT CREAT RAT 0.44 Normal [facility] Comment on above: Performed By: #### C VDAGS #### [facility] [address] [place] [address] Dr. Ashlie Hills URINE CREAT 175.15 mg/dL Normal 20.00-300.00 [facility] Comment on above: Performed By: #### C VDAGS #### [facility] [address] [place] [address] Dr. Ashlie Hills CULTURE URINEon 12-25-2021 CULTURE URINE Culture Observations: GREATER THAN TWO ORGANISMS PRESENT, HEAVILY MIXED. PLEASE RESUBMIT CLEAN CATCH MID-STREAM URINE IF CLINICALLY INDICATED. Normal [facility] Comment on above: Performed By: #### I NFLUAB #### [facility] [address] [place] [address] Dr. Ashlie Hills CBC AUTO DIFFon 12-24-2021 BASO # 0.1 103/ul Normal 0.0-0.1 [facility] Comment on above: Performed By: #### C BC #### [facility] [address] [place] [address] Dr. Ashlie Hills Basophils/100 WBC (Bld) 0.5 % Normal 0.2-2.0 [facility] Comment on above: Performed By: #### C BC #### [facility] [address] [place] [address] Dr. Ashlie Hills EO # 0.4 103/ul Normal 0.0-0.7 [facility] Comment on above: Performed By: #### C BC #### [facility] [address] [place] [address] Dr. Ashlie Hills Eosinophils/100 WBC (Bld) 2.4 % Normal 0.9-7.0 [facility] Comment on above: Performed By: #### C BC #### [facility] [address] [place] [address] Dr. Ashlie Hills Erythrocyte distribution width (RBC) [Ratio] 14.1 % Normal 11.0-15.0 [facility] Comment on above: Performed By: #### C BC #### [facility] [address] [place] [address] Dr. Ashlie Hills Hematocrit (Bld) [Volume fraction] 55.9 % Critically high 36.0-48.0 [facility] Comment on above: Performed By: #### C BC #### [facility] [address] [place] [address] Dr. Ashlie Hills Hemoglobin (Bld) [Mass/Vol] 17.9 g/dL Critically high 12.0-16.0 [facility] Comment on above: Performed By: #### C BC #### [facility] [address] [address] [address] Ashlie Hills IG # 0.06 10e3/ul Critically high 0.00-0.03 [facility] Comment on above: Performed By: #### C BC #### [facility] [address] [place] [address] Dr. Ashlie Hills IG % 0.4 % Normal 0.0-0.5 [facility] Comment on above: Performed By: #### C BC #### [facility] [address] [place] [address] Dr. Ashlie Hills LYMPH # 5.8 103/ul Critically high 1.2-3.8 [facility] Comment on above: Performed By: #### C BC #### [facility] [address] [place] [address] Dr. Ashlie Hills Lymphocytes/100 WBC (Bld) 35.4 % Normal 20.5-60.0 [facility] Comment on above: Performed By: #### C BC #### [facility] [address] [place] [address] Dr. Ashlie Hills MANUAL DIFF REQ NO Normal [facility] Comment on above: Performed By: #### C BC #### [facility] [address] [place] [address] Dr. Ashlie Hills MCH (RBC) [Entitic mass] 29.4 pg Normal 26.7-34.0 [facility] Comment on above: Performed By: #### C BC #### [facility] [address] [place] [address] Dr. Ashlie Hills MCHC (RBC) [Mass/Vol] 32.0 g/dL Normal 29.9-35.2 [facility] Comment on above: Performed By: #### C BC #### [facility] [address] [place] [address] Dr. Ashlie Hills MCV (RBC) [Entitic vol] 91.8 fL Normal 81.0-99.0 [facility] Comment on above: Performed By: #### C BC #### [facility] [address] [address] [address] Ashlie Hills MONO # 0.8 103/ul Normal 0.3-0.8 [facility] Comment on above: Performed By: #### C BC #### [facility] [address] [id number] [address] Ashlie Hills Monocytes/100 WBC (Bld) 4.8 % Normal 1.7-12.0 [facility] Comment on above: Performed By: #### C BC #### [facility] [address] [address] [address] Ashlie Hills NEUT # 9.3 103/ul Critically high 1.4-6.5 [facility] Comment on above: Performed By: #### C BC #### [facility] [address] [place] [address] Dr. Ashlie Hills Neutrophils/100 WBC (Bld) 56.5 % Normal 43.0-75.0 [facility] Comment on above: Performed By: #### C BC #### [facility] [address] [place] [address] Dr. Ashlie Hills Platelet mean volume (Bld) [Entitic vol] 12.9 fL Normal 9.5-13.5 [facility] Comment on above: Performed By: #### C BC #### [facility] [address] [place] [address] Dr. Ashlie Hills PLT 127 103/ul Critically low 150-450 [facility] Comment on above: Performed By: #### C BC #### [facility] [address] [place] [address] Dr. Ashlie Hills RBC 6.09 106/ul Critically high 4.20-5.40 [facility] Comment on above: Performed By: #### C BC #### [facility] [address] [place] [address] Dr. Ashlie Hills WBC 16.4 103/ul Critically high 4.0-11.0 [facility] Comment on above: Performed By: #### C BC #### [facility] [address] [place] [address] ABD/PELVIS WO CONon [...] hip degenerative change. Normal [facility] ER URINE PROFILEon 2 Bilirubin Ql (U) Negative Normal NEGATIVE [facility] Comment on above: Performed By: #### Tracey LYMAN UMICRO #### [facility] [address] [place] [address] Dr. Ashlie Hills Clarity (U) CLEAR Normal CLEAR [facility] Comment on above: Performed By: #### Tracey LYMAN UMICRO #### [facility] [address] [place] [address] Dr. Ashlie Hills Color (U) DK. ORANGE Abnormal YELLOW [facility] Comment on above: Performed By: #### Tracey LYMAN UMICRO #### [facility] [address] [place] [address] Dr. Ahslie HOBBS A micrscopic examination will be performed if indicated. Normal [facility] Comment on above: Performed By: #### Tracey LYMAN UMICRO #### [facility] [address] [place] [address] Dr. Ashlie Hills Glucose Ql (U) 250 mg/dl Abnormal NEGATIVE [facility] Comment on above: Performed By: #### Tracey LYMAN UMICRO #### [facility] [address] [place] [address] Dr. Ashlie Hills Hemoglobin Ql (U) Negative Normal NEGATIVE [facility] Comment on above: Performed By: #### Tracey LYMAN UMICRO #### [facility] [address] [address] [address] Ashlie Hills Ketones Ql (U) Negative Normal NEGATIVE The [facility] Comment on above: Performed By: #### Tracey LYMAN UMICRO #### [facility] [address] [place] [address] Dr. Ashlie Hills LEUKOCYTES Negative Normal NEGATIVE [facility] Comment on above: Performed By: #### MADELINE DIAZRO #### [facility] [address] [place] [address] Dr. Ashlie Hills Nitrite Ql (U) Negative Normal NEGATIVE [facility] Comment on above: Performed By: #### PEREZ DIAZICRO #### [facility] [address] [place] [address] Dr. Ashlie Hills pH (U) 5.0 [pH] Normal 5-9 [facility] Comment on above: Performed By: #### MADELINE DIAZRO #### [facility] [address] [place] [address] Dr. Ashlie Hilsl Protein (U) [Mass/Vol] 100 mg/dL Abnormal NEGAT YURY/ TRACE [facility] Comment on above: Performed By: #### MADELINE DIAZRO #### [facility] [address] [place] [address] Dr. Ashlie Hills SPEC GRAVITY >=1.030 Abnormal 1.005-<=1.025 [facility] Comment on above: Performed By: #### MADELINE DIAZRO #### [facility] [address] [place] [address] Dr. Ashlie Hills UR MICRO IND INDICATED Normal [facility] Comment on above: Performed By: #### MADELINE DIAZRO #### [facility] [address] [place] [address] Dr. Ashlie Hills Urobilinogen Qn (U) 1.0 {Little'U}/dL Normal 0.2 - 1. 0 [facility] Comment on above: Performed By: #### MADELINE DIAZRO #### [facility] [address] [place] [address] Dr. Ashlie Hills PROF CHEM 8 (BAS METB)on Anion gap [Moles/Vol] 12.1 mmol/L Normal [facility] Comment on above: Performed By: #### I NFLUAB #### [facility] [address] [address] [address] Ashlie Hills Calcium [Mass/Vol] 9.0 mg/dL Normal 8.5-10.1 [facility] Comment on above: Performed By: #### I NFLUAB #### [facility] [address] [address] [address] Ahslie Hills Chloride [Moles/Vol] 101 mmol/L Normal 98-107 [facility] Comment on above: Performed By: #### I NFLUAB #### [facility] [address] [address] [address] Ashlie Hills CO2 [Moles/Vol] 29.1 mmol/L Normal 21.0-32.0 [facility] Comment on above: Performed By: #### I NFLUAB #### [facility] [address] [place] [address] Dr. Ashlie Hills Creatinine [Mass/Vol] 0.86 mg/dL Normal 0.55-1.02 [facility] Comment on above: Performed By: #### I NFLUAB #### [facility] [address] [address] [address] Ashlie [place] EGFR-AF JORDANIAN >60 Normal >=60 [facility] Comment on above: Performed By: #### I NFLUAB #### [facility] [address] [place] [address] Dr. Ashlie Hills EGFR-NON AF JORDANIAN >60 Normal >=60 [facility] Comment on above: Performed By: #### I NFLUAB #### [facility] [address] [address] [address] Ashlie Hills Glucose [Mass/Vol] 236 mg/dL Critically high 74-106 [facility] Comment on above: Performed By: #### I NFLUAB #### [facility] [address] [address] [address] Ashlie Hills Potassium [Moles/Vol] 4.2 mmol/L Normal 3.5-5.1 [facility] Comment on above: Performed By: #### I NFLUAB #### [facility] [address] [address] [address] Ashlie [place] Sodium [Moles/Vol] 138 mmol/L Normal 136-145 [facility] Comment on above: Performed By: #### I NFLUAB #### [facility] [address] [place] [address] Dr. Ashlie Hills Urea nitrogen [Mass/Vol] 11.0 mg/dL Normal 7.0-18.0 [facility] Comment on above: Performed By: #### I NFLUAB #### [facility] [address] [place] [address] Dr. Ashlie Hills Urea nitrogen/Creatinine [Mass ratio] 12.8 mg/mg Normal [facility] Comment on above: Performed By: #### I NFLUAB #### [facility] [address] [place] [address] Dr. Ashlie Hills URINE MICROSCOPIC ONLYon BACTERIA SMALL Abnormal NONE SEEN [facility] Comment on above: Performed By: #### Tracey LYMAN UMICRO #### [facility] [address] [place] [address] Dr. Ashlie Hills Bacteria identified Cx Nom (U) INDICATED Normal [facility] Comment on above: Performed By: #### E NURA UMICRO #### [facility] [address] [place] [address] Dr. Ashlie Hills CAST NONE SEEN Normal NONE SEEN [facility] Comment on above: Performed By: #### Tracey LYMAN UMICRO #### [facility] [address] [place] [address] Dr. Ashlie Hills Crystals LM Nom (Urine sed) NONE SEEN Normal NONE SEEN [facility] Comment on above: Performed By: #### E JIMMYR UMICRO #### [facility] [address] [place] [address] Dr. Ashlie Hills Epithelial cells LM Ql (Urine sed) MODERATE Abnormal NONE SEEN /RARE [facility] Comment on above: Performed By: #### E RUR, UMICRO #### [facility] [address] [place] [address] Dr. Ashlie Hills MUCOUS NONE SEEN Normal NONE SEEN [facility] Comment on above: Performed By: #### E RUR, UMICRO #### [facility] [address] [address] [address] Ashlie Hills RBC 0-2 Normal 0-2 [facility] Comment on above: Performed By: #### E RUR, UMICRO #### [facility] [address] [address] [address] Ashlie Hills WBC 0-2 Abnormal NONE SEEN [facility] Comment on above: Performed By: #### E RUR, UMICRO #### [facility] [address] [address] [address] Ashlie Hills YEAST PRESENT Abnormal NONE SEEN [facility] Comment on above: Performed By: #### E RUR, UMICRO #### [facility] [address] [address] [address] Ashlie Hills HIP RIGHT 1 OR 2 VWS WITH PE LVISon 07-20-2020 HIP RIGHT 1 OR 2 VWS WITH PELVIS [facility] Department of Radiology [address] [place] [phone] Patient Name: MITZI MACIAS : 1970 Sex: F Age: Race: White Pt. Location: Patient Status: O Ordered Date: 07/20/2020 1:45:00 PM Completed Date: 07/20/2020 01:57 PM Requesting Provider: LIZ EISENBERG Attending Provider: LIZ EISENBERG Report Copy To: MCKAYLA BLAS Signs & Symptoms: M25.551 Pain in right hip I10 History: [place] Comments: evaluate Exam: HIP RIGHT 1 OR [...] MRI. Electronically signed: Pipo Acevedo. Transcribed by: [email or web address], User Resident: Electronically Signed by: PIPO ACEVEDO @ 07/20/2020 03:45 PM Normal [facility] Comment on above: Order Comment: evalu ate Vital Signs Date Time Vital Sign Value Performing Clinician Facility 08-27-2024 17:44-0500 Body mass index (BMI) [Ratio] 57.31 kg/m2 Mckayla aWn [employer] Work Phone: [facility] 08-27-2024 17:44-0500 Body temperature 98.01 [degF] Mckayla Wan [employer] Work Phone: [facility] 08-27-2024 17:44-0500 Body weight 165.97 kg Mckayla Juanjosecayetanojodie [employer] Work Phone: [facility] 08-27-2024 17:44-0500 Diastolic blood pressure 76 mm[Hg] Mckayla Wan [employer] Work Phone: [facility] 08-27-2024 17:44-0500 Heart rate 83 /min Mckayla Wan [employer] Work Phone: [facility] 08-27-2024 17:44-0500 Respiratory rate 18 /min Mckayla Wan [employer] Work Phone: [facility] 08-27-2024 17:44-0500 SaO2% (BldA) [Mass fraction] 91 % Mckayla Wan [employer] Work Phone: [facility] 08-27-2024 17:44-0500 Systolic blood pressure 134 mm[Hg] Mckayla Patriciajodie SCHAEFER Work Phone: [facility] 06-11-2024 10:00-0500 Blood Pressure Location Elbert ARAUZ [facility] 06-11-2024 10:00-0500 Diastolic blood pressure 68 mm[Hg] Elbert ARAUZ [facility] 06-11-2024 10:00-0500 Heart rate 76 /min Elbert ARAUZ [facility] 06-11-2024 10:00-0500 Systolic blood pressure 132 mm[Hg] [facility]bert [facility]RAU[facility] 05-27-2024 10:20-0500 Body height 170.2 cm Rain Souza MD Work Phone: [facility] 05-27-2024 10:20-0500 Body mass index (BMI) [Ratio] 56.7 kg/m2 Rain Souza MD Work Phone: [facility] 05-27-2024 10:20-0500 Body weight 164.2 kg Rain Souza MD Work Phone: [facility] 05-27-2024 10:20-0500 Diastolic blood pressure 66 mm[Hg] Rain Souza MD Work Phone: [facility] 05-27-2024 10:20-0500 Heart rate 72 /min Rain Souza MD Work Phone: [facility] 05-27-2024 10:20-0500 Respiratory rate 16 /min Rain Souza MD Work Phone: [facility] 05-27-2024 10:20-0500 Systolic blood pressure 128 mm[Hg] Rain Souza MD Work Phone: [facility] 04-14-2024 10:27-0400 Body height 165.1 cm Mckayla Juanjosehholz [employer] Work Phone: [facility] 04-14-2024 10:27-0400 Body mass index (BMI) [Ratio] 61.01 kg/m2 Mckayla Aichholz [employer] Work Phone: [facility] 04-14-2024 10:27-0400 Body temperature 98.49 [degF] Mckayla Aichholz [employer] Work Phone: [facility] 04-14-2024 10:27-0400 Body weight 166.29 kg Mckayla Aichholz [employer] Work Phone: [facility] 04-14-2024 10:27-0400 Diastolic blood pressure 80 mm[Hg] Mckayla Aichholz [employer] Work Phone: [facility] 04-14-2024 10:27-0400 Heart rate 77 /min Mckayla Aichholz [employer] Work Phone: [facility] 04-14-2024 10:27-0400 Respiratory rate 19 /min Mckayla Aichholz [employer] Work Phone: [facility] 04-14-2024 10:27-0400 SaO2% (BldA) [Mass fraction] 92 % Mckayla Aichholz [employer] Work Phone: [facility] 04-14-2024 10:27-0400 Systolic blood pressure 116 mm[Hg] Mckayla Aichholz [employer] Work Phone: [facility] 03-08-2022 15:00-0400 Body height 170.18 cm Stephanie Tico Other [facility] Other 03-08-2022 15:00-0400 Body temperature 97.6 [degF] Stephanie Tico Other [facility] Other 03-08-2022 15:00-0400 Diastolic blood pressure 72 mm[Hg] Stephanie Tico Other [facility] Other 03-08-2022 15:00-0400 Respiratory rate 20 /min Stephanie Tico Other [facility] Other 03-08-2022 15:00-0400 SaO2% (BldA) [Mass fraction] 91 % Stephanie Tico Other [facility] Other 03-08-2022 15:00-0400 Systolic blood pressure 131 mm[Hg] Stephanie Tico Other [facility] Other 02-20-2022 09:20-0400 Body height 170.18 cm Stephanie Tico Other [facility] Other 02-20-2022 09:20-0400 Body temperature 96.5 [degF] Stephanie Tico Other [facility] Other 02-20-2022 09:20-0400 Diastolic blood pressure 69 mm[Hg] Stephanie Tico Other [facility] Other 02-20-2022 09:20-0400 Respiratory rate 20 /min Stephanie Tico Other [facility] Other 02-20-2022 09:20-0400 SaO2% (BldA) [Mass fraction] 91 % Stephanie Tico Other [facility] Other 02-20-2022 09:20-0400 Systolic blood pressure 129 mm[Hg] Stephanie Tico Other [facility] Other 02-06-2022 10:24-0400 Blood Pressure Location Elbert ARAUZ [facility] 02-06-2022 10:24-0400 Diastolic blood pressure 76 mm[Hg] Elbert ARAUZ [facility] 02-06-2022 10:24-0400 Heart rate 70 /min Elbert ARAUZ [facility] 02-06-2022 10:24-0400 Respiratory rate 16 /min Elbert ARAUZ [facility] 02-06-2022 10:24-0400 Systolic blood pressure 134 mm[Hg] Elbert ARAU[facility] Encounters Encounter Date Encounter Type Care Provider Facility Start: 08-27-2024 End: 08-27-2024 Office outpatient visit 25 minutes Mckayla Blas NP Work Phone: [facility] Comment on above: Anxiety and depressi on ([facility]) (Primary Dx); Morbid (severe) obesity due to excess calories (CMS/[facility]); Body mass index (BMI) 50.0-59.9, adult (CMS/HCC); Malignant neoplasm of cervix uteri, unspecified (CMS/HCC); Diabetic polyneuropathy associated with type 2 diabetes mellitus (CMS/HCC); Chronic diastolic heart failure (CMS/HCC); Primary hypertension (CMS/HCC); 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 (CMS/HCC); Gastroesophageal reflux disease, unspecified whether esophagitis present; Bilateral lower extremity edema; Type 2 diabetes mellitus with complication, with long-term current use of insulin (CMS/[facility]); Tobacco user; Mixed hyperlipidemia (CMS/HCC); Gout, unspecified cause, unspecified chronicity, unspecified site; Vitamin deficiency; Gastro-esophageal reflux disease without esophagitis; Edema, unspecified; Edema; Hyperlipidemia, unspecified ([facility]/HCC); Encounter for smoking cessation counseling; Venous ulcer of right leg ([facility]/HCC); Antibiotic-induced yeast infection Start: 08-27-2024 End: 08-27-2024 ambulatory MCKAYLA AICHHOLZ Not Available Start: 08-27-2024 End: 08-27-2024 Clinisync Result Encounter Generic External Data Provider [facility] External Department Unsolicited Start: 08-27-2024 End: 08-27-2024 Clinisync Result Encounter Generic External Data Provider [facility] External Department Unsolicited Start: 08-08-2024 End: 08-08-2024 ambulatory [facility] Start: 07-17-2024 End: 07-17-2024 Refill Mckayla Chetz [employer] Work Phone: [facility] Start: 07-14-2024 End: 07-14-2024 Office outpatient visit 25 minutes Mckayla Blas [employer] IN[employer]ER Work Phone: [facility] Comment on above: Primary hypertension ([facility]) (Primary Dx); Diabetic polyneuropathy associated with type 2 diabetes mellitus ([facility]); Pulmonary emphysema, unspecified emphysema type ([facility]/HCC); Critical limb ischemia of right lower extremity ([facility]/HCC); PAD (peripheral artery disease) ([facility]); Gastroesophageal reflux disease, unspecified whether esophagitis present; Bilateral lower extremity edema; Venous ulcer of right leg ([facility]/HCC); Type 2 diabetes mellitus with complication, with long-term current use of insulin ([facility]/HCC); Tobacco user; Encounter for smoking cessation counseling; Kidney stone; Adrenal mass 1 cm to 4 cm in diameter ([facility]/HCC); Radiculopathy, lumbar region; Non-seasonal allergic rhinitis, unspecified trigger; Type 2 diabetes mellitus with unspecified complications ([facility]/HCC) Start: 07-14-2024 End: 07-14-2024 ambulatory MCKAYLA AICHHOLZ Not Available Start: 07-05-2024 End: 07-07-2024 Refill Mckayla Aichholz [employer] Work Phone: [facility] Comment on above: Bilateral lower extr emity edema Start: 06-11-2024 ambulatory Elbert ARAUZ Tabathai ty:SHEA [place] Start: 06-11-2024 End: 06-11-2024 Patient encounter procedure Elbert ARAUZ [facility] [place] Start: 05-27-2024 End: 05-27-2024 Bamboo flowsheet Rain Souza MD Work Phone: [facility] Start: 05-27-2024 End: 05-27-2024 Bamboo flowsheet Rain Souza MD Work Phone: [facility] Start: 05-27-2024 End: 05-27-2024 ambulatory RAIN SOUZA Not Available Start: 05-27-2024 End: 05-27-2024 Office outpatient visit 25 minutes Rain Souza MD Work Phone: [facility] Comment on above: Type 2 diabetes asiya itus with hyperglycemia, with long-term current use of insulin (CMS/[facility]) (Primary Dx); Encounter for dietary consultation; Vitamin [...] 04-14-2024 End: 04-14-2024 Bamboo flowsheet Mckayla Blas [employer] IN[employer]ER Work Phone: [facility] Start: 04-14-2024 End: 04-14-2024 Bamboo flowsheet Mckayla Aichholz [employer] IN[employer]ER Work Phone: [facility] Start: 04-14-2024 End: 04-14-2024 Office outpatient visit 25 minutes Mckayla Aichholz [employer] IN[employer]ER Work Phone: [facility] Comment on above: Primary hypertension (CMS/HCC) [...] Available Start: 04-05-2024 End: 04-06-2024 Refill Mckayla Aichholz [employer] Work Phone: [facility] Comment on above: Hyperlipidemia, unsp ecified (CMS/HCC); Bilateral lower extremity edema Vitamin D deficiency , unspecified Start: 01-17-2024 Patient encounter procedure Rain Souza MD Work Phone: [facility] Start: 01-17-2024 End: 01-17-2024 ambulatory MCKAYLA AICHHOLZ Not Available Start: 11-15-2023 End: 11-15-2023 ambulatory MCKAYLA AICHHOLZ Not Available Start: 11-14-2023 End: 11-14-2023 ambulatory [facility] Start: 11-01-2023 End: 11-01-2023 ambulatory MCKAYLA AICHHOLZ Not Available Start: 09-27-2023 End: 09-27-2023 ambulatory MCKAYLA AICHHOLZ Not Available Start: 08-17-2023 Refill Mckayla Aichholz [employer] Work Phone: [facility] Comment on above: Vaginal yeast infect ion (Primary Dx) Start: 08-14-2023 Refill Mckayla Wan [employer] Work Phone: [facility] Comment on above: Type 2 diabetes asiya itus with unspecified complications ([facility]); Edema, unspecified; Edema Start: 12-05-2022 ambulatory NARENDRANATH LAKSHMIPATHY . Facility:[facility] Start: 12-05-2022 End: 12-06-2022 Evaluation and management of inpatient UMBERTO ALONDRA . Facility:[facility] Start: 11-23-2022 End: 11-23-2022 ambulatory SAYDA PATRICIARAVIJuanis Facility:[facility] Start: 11-22-2022 End: 11-23-2022 ambulatory SHOE COVERER MCKAYLA JUANJOSECayetanoRAVIJuanis Facility:[facility] Start: 11-17-2022 End: 11-18-2022 ambulatory SUBHASH GASPAR . Facility:[facility] Start: 11-15-2022 End: 11-15-2022 Patient encounter procedure SARAH VEGA [facility] Start: 10-05-2022 End: 10-05-2022 ambulatory MARIANO DIAB . Facility:[facility] Start: 09-21-2022 End: 09-21-2022 ambulatory SHOE COVERER MCKAYLA ROBERTORAVIJuanis Facility:[facility] Start: 09-14-2022 ambulatory RAFAEL Ribera y:[facility]1 Start: 08-24-2022 End: [address] CHAPARRO MORTENSEN . Facility:[facility] Start: 08-21-2022 End: 08-22-2022 ambulatory HATTIE BRODERICK Facility:[facility] Start: 07-27-2022 End: 07-28-2022 ambulatory CECILIA TORRES . Facility:[facility] Start: 07-18-2022 End: 07-19-2022 ambulatory CECILIA TORRES . Facility:[facility] Start: 07-18-2022 End: 07-19-2022 ambulatory HATTIE BRODERICK Facility:[facility] Start: 07-06-2022 End: 07-06-2022 ambulatory SHOE COVERER MCKAYLA JUANJOSECayetanoJODIE Facility:[facility] Start: 05-11-2022 End: 05-12-2022 ambulatory GIL VALENZUELA . Facility:[facility] Start: 04-25-2022 End: 04-25-[address] CHAPARRO MORTENSEN . Facility:[facility] Start: 04-20-2022 End: 04-21-2022 ambulatory GIL VALENZUELA . Facility:[facility] Start: 03-08-2022 End: 03-08-2022 ambulatory Stephanie Tico Other [facility] Other Start: 03-08-2022 Office outpatient vi sit 15 minutes Stephanie Tico [facility] Start: 03-03-2022 End: 03-04-2022 ambulatory SHOE COVERER MCKAYLA WAN Facility:[facility] Start: 02-20-2022 End: 02-20-2022 ambulatory Stephanie Tico Other [facility] Other Start: 02-20-2022 Office outpatient ne w 45 minutes Stephanie Tico [facility] Start: 02-06-2022 End: 02-06-2022 Patient encounter procedure Elbert ARAUZ [facility] Start: 01-19-2022 End: 01-20-2022 ambulatory GIL VALENZUELA . Facility:[facility] Start: 12-24-2021 End: 12-24-2021 ambulatory OLE RAMIREZ Facility: Start: 08-26-2020 End: 09-10-2020 Patient encounter procedure MARY TAVERAS Facility:[facility] Start: 10-30-2019 End: 10-30-2019 Emergency department patient visit [facility] Start: 10-30-2019 End: 10-30-2019 Emergency department patient visit [facility] Emergency Department Start: 11-02-2016 Preoperative state Stephanie Tico Other [facility] Other Procedures Date Procedure Procedure Detail Performing Clinician Start: 08-27-2024 ALL CBC WITH AUTO DIFF Generic External Data Provider Start: 05-27-2024 Gluc bld gluc mntr d ev cleared fda spec home use Rain Souza MD Work Phone: Start: 05-12-2024 [facility] CREATININE Generic External Data Provider Start: 12-14-2023 Mammography Rain urena MD Work Phone: Start: 11-22-2022 Mammography Mckayla clifford NP Work Phone: Start: 10-08-2015 Microscopic observat ion [Identifier] in Cervix by Cyto stain Mckayla Blas NP Work Phone: H/O: hysterectomy Elbert TIKA LARA Laparoscopic cholecystectomy Elbert ARAUZ Operative procedure on foot Elbert ARAUZ Plan of Treatment Date Care Activity Detail Author Start: 08-03-2025 Screening for malignant neoplasm of colon [facility] Start: 07-14-2025 Glaucoma screening Diabetes: R etinopathy Screening [facility] Start: 05-13-2025 Glaucoma screening Diabetes: R etinopathy Screening [facility] Start: 01-16-2025 Medicare Annual Wellness (AWV) Medicare Annual Wellness (AWV) [facility] Start: 12-13-2024 Screening for malignant neoplasm of breast [facility]ogram [facility] Start: 11-11-2024 Urine screening for protein Diabetes: Urine Protein Screening [facility] Start: 10-27-2024 End: 10-27-2024 Patient encounter procedure 10/27/2024 2:00 PM EDT Office Visit [facility] [address] [place] [id number] Mckayla Blas NP [address] [place] [id number] [facility] Start: 10-08-2024 End: 10-08-2024 Patient encounter procedure 10/08/2024 11:20 AM EDT Office Visit [facility] [address] [place] [phone] Rain Souza MD [address] [place] [address] [facility] Start: 08-27-2024 End: 08-27-2024 Patient encounter procedure 08/27/2024 5:30 PM EST Office Visit [facility] [address] [place] [address] Mckayla Blas [employer] [address] [place] [address] [facility] Start: 08-27-2024 End: 08-27-2025 25-hydroxyvitamin D3 [Mass/volume] in Serum or Plasma Vitamin D 25 hydroxy Lab Routine Vitamin deficiency Expected: 08/27/2024 (Approximate), Expires: 08/27/2025 [facility] Comment on above: Expected: 08/27/2024 (Approximate), Expires: 08/27/2025 Start: 08-27-2024 Hemoglobin A1c measurement Diabetes: Hemoglobin A1C [facility] Start: 08-27-2024 End: 08-27-2025 Hepatic function 2000 panel - Serum or Plasma Hepatic function panel Lab Routine Hyperlipidemia, unspecified (CMS/HCC) Expected: 08/27/2024 (Approximate), Expires: 08/27/2025 [facility] Comment on above: Expected: 08/27/2024 (Approximate), Expires: 08/27/2025 Start: 08-27-2024 End: 08-27-2025 Lipid 1996 panel - Serum or Plasma Lipid panel Lab Routine Mixed hyperlipidemia (CMS/HCC) Expected: 08/27/2024 (Approximate), Expires: 08/27/2025 [facility] Work Phone: Comment on above: Expected: 08/27/2024 (Approximate), Expires: 08/27/2025 Start: 08-27-2024 End: 08-27-2025 Microalbumin/Creatini ne panel in random Urine Microalbumin / creatinine, urine ratio Lab Routine Primary hypertension ([facility]) Type 2 diabetes mellitus with complication, with long-term current use of insulin ([facility]) Expected: 08/27/2024 (Approximate), Expires: 08/27/2025 [facility] Comment on above: Expected: 08/27/2024 (Approximate), Expires: 08/27/2025 Start: 08-27-2024 End: 08-27-2025 Urate [Mass/volume] in Serum or Plasma Uric acid Lab Routine Gout, unspecified cause, unspecified chronicity, unspecified site Expected: 08/27/2024 (Approximate), Expires: 08/27/2025 [facility] Comment on above: Expected: 08/27/2024 (Approximate), Expires: 08/27/2025 Start: 08-27-2024 End: 08-27-2025 Urinalysis complete panel - Urine Urinalysis with reflex microscopic (clean catch) Lab Routine Primary hypertension ([facility]) Type 2 diabetes mellitus with complication, with long-term current use of insulin ([facility]) Tobacco user Gout, unspecified cause, unspecified chronicity, unspecified site Expected: 08/27/2024 (Approximate), Expires: 08/27/2025 [facility] Comment on above: Expected: 08/27/2024 (Approximate), Expires: 08/27/2025 Start: 08-26-2024 End: 08-26-2024 Patient encounter procedure 08/26/2024 10:30 AM EST Office Visit [facility] [address] [place] [address] Rain Souza MD [address] [place] [address] [facility] Start: 07-14-2024 End: 07-14-2024 Patient encounter procedure 07/14/2024 6:30 PM EST Office Visit [facility] [address] [place] [address] Mckayla Blas NP [address] [place] [address] [facility] Start: 07-14-2024 End: 07-14-2024 Patient encounter procedure 07/14/2024 10:10 AM EST Office Visit [facility] [address] [place] [address] Rain Souza MD [address] [place] [address] [facility] Start: 06-06-2024 Influenza vaccination Influenza Vacc ine (#1) [facility] Comment on above: Postponed from 03/09 (Patient Refused) Start: 05-27-2024 End: 05-27-2024 Patient encounter procedure 05/27/2024 9:50 AM EST Office Visit [facility] [address] [place] [address] Rain Souza MD [address] [place] [address] [facility] Start: 05-17-2024 Hemoglobin A1c measurement Diabetes: Hemoglobin A1C [facility] Start: 05-15-2024 End: 05-15-2024 Chart abstracting 05/15/2024 Abstract [facility] [address] [place] [address] Rain Souza MD [address] [place] [address] [facility] Start: 05-15-2024 End: 05-15-2024 Patient encounter procedure 05/15/2024 11:20 AM EST Office Visit [facility] [address] [place] [address] Rain Souza MD [address] [place] [id number] [facility] Start: 04-17-2024 End: 04-17-2024 Patient encounter procedure 04/17/2024 3:40 PM EDT Office Visit [facility] [address] [place] [address] Mckayla Blas, [employer] [address] [place] [id number] [facility] Start: 04-14-2024 End: 04-14-2024 Patient encounter procedure 04/14/2024 11:00 AM EDT Office Visit [facility] [address] [place] [address] Mckayla Blas, [employer] [address] [place] [id number] Arrived [facility] Comment on above: Arrived Start: 03-09-2024 Influenza vaccination Influenza Vacc ine (#1) [facility] Start: 02-19-2024 Hemoglobin A1c measurement Diabetes: Hemoglobin A1C [facility] Start: 11-24-2023 Urine screening for protein Diabetes: Urine Protein Screening [facility] Start: 11-23-2023 Screening for malignant neoplasm of breast Mammogram [facility] Start: 10-15-2023 End: 10-15-2023 Patient encounter procedure 10/15/2023 4:30 PM EDT Office Visit [facility] [address] [place] [address] Mckayla Blas, [employer] IN[employer] [address] [place] [phone] [facility] Start: 08-09-2023 Hemoglobin A1c measurement Diabetes: Hemoglobin A1C [facility] Start: 05-27-2021 Glaucoma screening Diabetes: R etinopathy Screening [facility] Start: 03-09-2020 Influenza vaccination Flu vacc ine (Season Ended) [facility], [place] Start: 10-07-2018 Screening for malignant neoplasm of cervix [facility] Start: 2010 Lipid panel [facility] [place] [place] Start: 2000 Screening for malignant neoplasm of cervix HPV/Cotest [facility] Start: 1991 Screening for malignant neoplasm of cervix Cervical cancer screen [place], [place] Start: 1989 DTaP/Tdap/Td vaccine (1 - Tdap) DTaP/Tdap/Td vaccine (1 - Tdap) [place] Start: 1985 HIV screening [facility] screen [facility] [place] [place] Start: 1970 Medicare Annual Wellness (AWV) Medicare Annual Wellness (AWV) [facility] Start: 1970 Screening for malignant neoplasm of colon [facility] Immunizations Immunization Date Immunization Notes Care Provider Fa [facility] 05-18-2023 influenza, injectabl e, quadrivalent, contains preservative Mckayla Blas NP Work Phone: [facility] 05-18-2023 influenza virus vacc ine, unspecified formulation Rain Souza MD Work Phone: [facility] 07-19-2021 SARS-CoV-2 (COVID-19 ) mRNA BNT-162b2 vax [employer] [facility] 10-28-2020 SARS-CoV-2 (COVID-19 ) mRNA BNT-162b2 vax SARAH SILVIA [facility] 10-08-2020 SARS-CoV-2 (COVID-19 ) mRNA BNT-162b2 vax SARAH SILVIA [facility] 04-16-2017 influenza virus vacc ine, H5N1, A/[place] (national stockpile) Mckayla Blas NP Work Phone: [facility] 04-16-2017 influenza virus vacc ine, unspecified formulation Rain Souza MD Work Phone: [facility] 04-16-2017 influenza, unspecifi ed formulation Elbert ARAUZ [facility] 04-16-2017 pneumococcal polysaccharide vaccine, 23 valent Rain Souza MD Work Phone: [facility] 05-10-2016 influenza virus vacc ine, H5N1, A/[place] (national stockpile) Mckayla Blas [employer] Work Phone: [facility] 05-10-2016 influenza virus vacc ine, unspecified formulation Rain Souza MD Work Phone: [facility] 05-10-2016 influenza, unspecifi ed formulation Elbert ARAUZ [facility] 05-02-2013 influenza virus vacc ine, whole virus Rain Souza MD Work Phone: [facility] 05-02-2013 influenza, injectabl e, quadrivalent, contains preservative Mckayla Blas [employer] Work Phone: [facility] 05-02-2013 influenza, whole Elbert BARBARA ARAMBULA [facility] 01-29-1998 measles, mumps and rubella virus vaccine Rain Souza MD Work Phone: [facility] Payers Date Payer Category Payer Medicare (Managed Care) [employer] [id number] 2023 Private Health Insurance [facility] [id number] 2023-Present [address] [address] [place] [address] [id number] 2023 Medicare [id number] 2023 Private Health Insurance [id number] 2018 Medicaid MEDICAID [facility] [id number] 2018-Present [phone] [address] [place] [address] Medicaid [id number] 2017 Medicare [id number]. [id number] 1970 Unknown [id number] 2.16.840.1.277903.3.579.2. 647 1970 Unknown [id number] 2.16.840.1.651300.3.579.2. 593 1970 Unknown [id number] 2.16.840.1.736828.3.579.2. 593 1970 Unknown [id number] 2.16.840.1.508015.3.579.2. 593 1970 Unknown [id number] 2.16.840.1.549995.3.579.2. 593 1970 Unknown [id number] 2.16.840.1.179073.3.579.2. 593 1970 Unknown [id number] 2.16.840.1.553101.3.579.2. 593 1970 Unknown [id number] 2.16.840.1.410597.3.579.2. 593 1970 Unknown [id number] 2.16.840.1.010034.3.579.2. 593 1970 Unknown [id number] 2.16.840.1.932604.3.579.2. 593 1970 Unknown [id number] 2.16.840.1.566294.3.579.2. 593 1970 Unknown [id number] 2.16.840.1.825396.3.579.2. 593 1970 Unknown [id number] 2.16.840.1.868976.3.579.2. 593 1970 Unknown [id number] 2.16.840.1.914090.3.579.2. 593 1970 Unknown [id number] 2.16.840.1.976084.3.579.2. 593 1970 Unknown [id number] 2.16.840.1.615032.3.579.2. 593 1970 Unknown [id number] .16.840.1.407504.3.579.2. 593 1970 Unknown [id number] 2.16.840.1.164526.3.579.2. 593 1970 Unknown [id number] 2.16.840.1.618450.3.579.2. 593 1970 Unknown [id number] 2.16.840.1.197939.3.579.2. 593 1970 Unknown [id number] 2.16.840.1.837597.3.579.2. 593 1970 Unknown [id number] 2.16.840.1.153868.3.579.2. 593 1970 Unknown [id number] 2.16.840.1.358941.3.579.2. 593 1970 Unknown [id number] 2.16.840.1.010665.3.579.2. 727 1970 Unknown [id number] 2.16.840.1.243836.3.579.2. 727 1970 Unknown [id number] 2.16.840.1.171334.3.579.2. 9 1970 Unknown [id number] 2.16.840.1.931641.3.579.2. 9 1970 Unknown [id number] 2.16.840.1.305843.3.579.2. 1258 1970 Unknown [id number] 2.16.840.1.362209.3.579.2. 9 1970 Unknown [id number] 2.16.840.1.058175.3.579.2. 1258 1970 Unknown [id number] 2.16.840.1.293288.3.579.2. 9 1970 Unknown [id number] 2.16.840.1.378979.3.579.2. 1258 1970 Unknown [id number] 2.16.840.1.049152.3.579.2. 9 1959 Medicaid [id number] 1959 Private Health Insurance [id number] 1959 Unknown [id number] 2.16.840.1.342534.19 Social History Date Type Detail Facility Start: 02-17-2014 End: 07-10-2023 Tobacco smoking status NHIS Current every day smoker [place], [place] Start: 02-17-1994 History of tobacco use Cigarette Smo ker [place] Start: 02-17-2014 End: 08-26-2024 Cigarettes smoked current (pack per day) - Reported [place] Start: 02-17-2014 Alcohol intake Current drinke r of alcohol (finding) [place] Start: 02-17-2014 Alcohol Comment Rare [facility] [place], [place] Start: 1970 Sex Assigned At Not on file [place], [place] Exposure to SARS-CoV -2 (event) Unable to assess [place] Start: 02-06-2022 Tobacco smoking status Smoker (findi ng) [facility] Start: 07-10-2023 End: 08-26-2024 Sex Assigned At Female [facility] Start: 11-15-2022 End: 06-11-2024 Tobacco smoking status Heavy tobacco smoker (finding) [facility] Start: 07-10-2023 Tobacco use and exposure Smoke less tobacco non-user [facility] Start: 07-10-2023 End: 08-27-2024 Alcohol intake Lifetime non-drinker (finding) [facility] Within the last year , have you been afraid of your partner or ex-partner? No [facility] Do you belong to any clubs or organizations such as spiritism groups, unions, [employer] or athletic groups, or school groups? Yes [...] Only a little [facility] (I/We) worried kai er (my/our) food would run out before (I/we) got money to buy more. Never true [facility] How often do you hav e 6 or more drinks on 1 occasion? Never [facility] Medical Equipment Procedure Code Equipment Code Equipment Origin al Text Equipment Identifier Dates [id number] Start: 01-18-2024 USE TO TEST BLOO D SUGAR 4 TIMES DAILY [id number] Start: 07-07-2024 Functional Status Date Assessment Result Facility 06-11-2024 Functional Status N/A [facility] 11-15-2022 Functional Status N/A [facility] 02-06-2022 Functional Status N/A [facility] Clinical Notes 01-19-2022 to 08-27-2024 Mckayla Blas NP - 08/27/2024 7:08 PM PAOLA FLYNN - 08/27/2024 5:30 PM Ed Blas NP - 08/27/2024 5:30 PM Ed Blas NP - 08/27/2024 7:36 AM EST Note Date & Type Note Facility 08-27-2024 History of Present illness Narrative Associated Problem(s): Venous ulcer of right leg (CMS/HCC) Continue with wound for treatment Had recent med added Discussed need for tight glucose control as well as QUITTING SMOKING Failure to do so can result in amputation Pt on has been on 30days of cephalexin, she had gotten labs done for her kidneys; she just got a call stating her labs were good and going to start her tonight on bactrim. Pt may need diflucan Pain magt is taking over lyrica they added 150mg more daily Pt is now getting 80 narco monthly in stead of 90. Glucose is running 160s as fasting Images from the original note were not included. Mitzi Macias is a 54 y.o. female presents with chief complaint of No chief complaint on file. HPI: Pt on has been on 30days of cephalexin, she had gotten labs done for her kidneys; she just got a call stating her labs were good and going to start her tonight on bactrim. Pt may need diflucan Pain magt is taking over lyerica they added 150mg more daily Pt is also on bactrim Pt is now getting 80 narco monthly in stead of 90. Glucose is running 160s as fasting Depression Visit Type: follow-up Patient presents with the following symptoms: anhedonia, depressed mood, excessive worry, fatigue, irritability and nervousness/anxiety. Patient is not experiencing: palpitations, shortness of breath, suicidal ideas, suicidal planning and thoughts of . Frequency of symptoms: most days Severity: moderate Compliance with medications: 76-100% Hypertension This is a chronic problem. The current episode started more than 1 year ago. The problem is unchanged. The problem is controlled. Associated symptoms include peripheral edema. Pertinent negatives include no blurred vision, chest pain, headaches, palpitations or shortness of breath. There are no associated agents to hypertension. Risk factors for coronary artery disease include diabetes mellitus, dyslipidemia, obesity, sedentary lifestyle and smoking/tobacco exposure. Past treatments include TILA inhibitors. The current treatment provides significant improvement. There are no compliance problems. Hypertensive end-organ damage includes kidney disease and PVD. Nicotine Dependence Presents for initial visit. Symptoms include cravings, fatigue and irritability. Symptoms are negative for sore throat. Preferred tobacco types include cigarettes. Preferred cigarette types include filtered. Her urge triggers include company of smokers and stress. She smokes 1 pack of cigarettes per day. She started smoking when she was >17 years old. Past treatments include varenicline. The treatment provided no relief. Compliance with prior treatments has been variable. Mitzi is thinking about quitting. Mitzi has tried to quit 5 or more times. There is no history of alcohol abuse and drug use. SUBJECTIVE: MEDICATIONS: Current Outpatient Medications Medication Instructions Accu-Chek Guide Test test strip USE TO TEST BLOOD SUGAR 4 TIMES DAILY albuterol HFA 90 mcg/act inhaler 2 puffs, Every 4 hours PRN albuterol 2.5 mg, Every 6 hours PRN amitriptyline (ELAVIL) 25 mg, Oral, Nightly ammonium lactate (Lac-Hydrin) 12 % lotion APPLY TO BILATERAL FEET EVERY DAY aspirin 81 mg, Oral, Daily baclofen (LIORESAL) 10 mg, 3 times daily cephalexin (Keflex) 500 MG capsule cetirizine (ZYRTEC) 10 mg, Oral, Daily dapagliflozin (FARXIGA) 10 mg, Oral, Daily diclofenac (VOLTAREN) 75 mg, 2 times daily DULoxetine (CYMBALTA) 60 mg, Oral, 2 times daily, Do not crush or chew. ergocalciferol (Vitamin D2) 1.25 MG (20730 UT) capsule TAKE 1 CAPSULE BY MOUTH ONE TIME PER WEEK fluconazole (Diflucan) 150 MG tablet One time dose, repeat in 3 days . Do not take cholesterol pill while taking this medication. Once finished then resume furosemide (LASIX) 40 mg, Oral, Daily furosemide (LASIX) 20 mg, Oral, Daily PRN, Take in the afternoon as needed hydrALAZINE (APRESOLINE) 25 mg, Oral, 2 times daily HYDROcodone-acetaminophen ([place]) 5-325 MG tablet 1 tablet, 3 times daily PRN insulin glargine (LANTUS) 58 Units, 2 times daily Insulin Lispro (HUMALOG KWIKPEN SC) 3 times daily before meals ipratropium-albuterol (Duo-Neb) 0.5-2.5 mg/3 mL nebulizer solution Daily PRN Lantus SoloStar 100 UNIT/ML pen lisinopril 20 mg, Oral, Daily naloxone (NARCAN) 4 mg, As needed nicotine (Nicoderm, Step 1) 21 MG/24HR patch 1 patch, Transdermal, Every 24 hours, May either leave patch on 24 hours, or apply in the morning and take of at bedtime, rotate sites omeprazole (PRILOSEC) 20 mg, Oral, Daily before breakfast oxygen (O2) 2 L/min, Continuous pen needle 32G x 5 mm misc 5 each, Daily potassium chloride ER (Micro-K) 10 MEQ ER capsule 10 mEq, Oral, Daily, Take 1 capsule (10 mEq) by mouth in the morning. pregabalin (LYRICA) 300 mg, Oral, 2 times daily pregabalin (LYRICA) 150 mg, Daily Roflumilast 500 MCG tablet 1 tablet, Oral, Daily simvastatin (ZOCOR) 10 mg, Oral, Nightly sulfamethoxazole-trimethoprim (Bactrim DS) 800-160 MG per tablet Tirzepatide (Mounjaro) 15 MG/0.5ML solution auto-injector INJECT 15MG SUBCUTANEOUSLY ONCE A WEEK varenicline (CHANTIX) 1 mg, Oral, 2 times daily, Take with full glass of water. Varenicline Tartrate, Starter, (Chantix Starting Month ) 0.5 MG X 11 & 1 MG X 42 tablet therapy pack 1 tablet, Oral, Daily, Take daily as directed ALLERGIES: No Known Allergies REVIEW OF SYMPTOMS: Review of Systems Constitutional: Positive for fatigue and irritability. Negative for appetite change, chills and fever. HENT: Negative for congestion, ear pain and sore throat. Eyes: Negative for blurred vision, pain, discharge, redness and visual disturbance. Respiratory: Positive for cough. Negative for shortness of breath and wheezing. Cardiovascular: Positive for leg swelling. Negative for chest pain and palpitations. Gastrointestinal: Negative for abdominal pain, blood in stool, constipation, diarrhea, nausea and vomiting. Genitourinary: Negative for difficulty urinating, dysuria and frequency. Musculoskeletal: Positive for arthralgias and back pain. Negative for joint swelling and myalgias. Skin: Positive for wound. Negative for rash. Neurological: Negative for dizziness, tremors, seizures, syncope and headaches. Psychiatric/Behavioral: Positive for depression. Negative for behavioral problems, self-injury and suicidal ideas. The patient is nervous/anxious. Depression Hematological: Does not bruise/bleed easily. Endocrine: Negative for polydipsia, polyphagia and polyuria. Allergic/Immunologic: Negative for environmental allergies and food allergies. 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 Anxiety and depression ([facility]) 07/10/2023 Asthma ([facility]) 07/10/2023 Body mass index (BMI) 50.0-59.9, adult ([facility]) Cellulitis of left lower extremity Cervical cancer ([facility]) 09/17/2023 Chronic pain of both knees 09/17/2023 COPD (chronic obstructive pulmonary disease) ([facility]) 07/10/2023 COPD exacerbation ([facility]) 09/17/2023 Decreased functional mobility 09/17/2023 Diabetic neuropathy ([facility]) 07/10/2023 Dietary counseling and surveillance Edema 07/10/2023 Elevated sed rate Elevated WBC count Essential (primary) hypertension ([facility]) GERD (gastroesophageal reflux disease) 09/17/2023 Hyperlipidemia ([facility]) 09/17/2023 Hypertension ([facility]) 07/10/2023 Insomnia 09/17/2023 assisted (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 ([facility]) Lower extremity edema 09/17/2023 Mixed hyperlipidemia ([facility]) Morbid (severe) obesity due to excess calories ([facility]) Obstructive sleep apnea 07/10/2023 PAD (peripheral artery disease) ([facility]) 09/17/2023 Pancreatitis 09/17/2023 Pneumonia 09/17/2023 Proteinuria, unspecified Pulmonary hypertension ([facility]) 09/17/2023 Radiculopathy, lumbar region 09/17/2023 Tobacco user 09/17/2023 Type 2 diabetes mellitus with complication, with long-term current use of insulin ([facility]) 07/10/2023 Unilateral primary osteoarthritis, right hip 09/17/2023 Vaginal yeast infection 08/17/2023 Venous insufficiency 09/17/2023 Vitamin D deficiency, unspecified Past Surgical History: Procedure Laterality Date CERVIX SURGERY removal of pre cancer cell from cervix CHOLECYSTECTOMY 2019 HYSTERECTOMY PARTIAL HYSTERECTOMY 2002 TOE SURGERY Left Ulcer debridement family history includes Cancer in her paternal grandfather and paternal grandmother; Hypertension in her paternal grandmother; Mental illness in an other family member; No Known Problems in her father; Varicose veins in her father's sister. OBJECTIVE: Visit Vitals BP 134/76 (BP Location: Left arm, Patient Position: Sitting, BP Cuff Size: Large adult) Pulse 83 Temp 98 F (Temporal) Resp 18 Wt 365 lb 14.4 oz SpO2 91% BMI 57.31 kg/m Smoking Status Every Day BSA 2.8 m Physical Exam Vitals and nursing note reviewed. Constitutional: General: She is not in acute distress. Appearance: Normal appearance. She is obese. She is not ill-appearing. HENT: Head: Normocephalic and atraumatic. Right Ear: [...] Pulmonary effort is normal. Breath sounds: Wheezing (exp faint, scattered) present. Abdominal: General: Bowel sounds are normal. There is no distension. Palpations: Abdomen is soft. There is no mass. Tenderness: There is no abdominal tenderness. Musculoskeletal: Cervical back: Normal range of motion and neck supple. Right lower leg: Edema present. Left lower leg: Edema present. Lymphadenopathy: Cervical: No cervical adenopathy. Skin: General: Skin is warm and dry. Capillary Refill: Capillary refill takes 2 to 3 seconds. Findings: No rash. Comments: Wound RLE, management per wound care center Neurological: General: No focal deficit present. Mental Status: She is alert and oriented to person, place, and time. Psychiatric: Mood and Affect: Mood normal. Behavior: Behavior normal. Thought Content: Thought content normal. Judgment: Judgment normal. ASSESSMENT AND PLAN: No follow-ups on file. Problem List Items Addressed This Visit Diabetic neuropathy ([facility]) Continue with cintia hudson mgmt is prescribing OARRS reviewed Fu in 3 months Goal: tighter glucose control Hypertension ([facility]) Please check blood pressure daily and record DASH diet Limit caffeine Take medication as directed Contact office if chest pain, pressure, dizziness, shortness of breath, swelling legs Recommend slow position changes Current meds: hydralazine, lisinopril, Relevant Medications lisinopril 20 MG tablet Other Relevant Orders Urinalysis with reflex microscopic (clean catch) Microalbumin / creatinine, urine ratio Type 2 diabetes mellitus with complication, with long-term current use of insulin ([facility]) Check blood sugars daily, notify if <70 [...] to follow with Libby On asa, tila, statin, farxiga, mounjaro Most recent A1c is 9.2% on 05/27/24 Relevant Orders Urinalysis with reflex microscopic (clean catch) Microalbumin / creatinine, urine ratio Anxiety and depression (CMS/[facility]) - Primary Current meds: elavil, duloxtine, PHQ 9= 5 IRENE 7=3 Current meds: TCA, and duloxetine Relevant Medications DULoxetine (Cymbalta) [address] capsule Bilateral lower extremity edema Limit sodium , elevate legs, furosemide GERD (gastroesophageal reflux disease) Recommendations: freq small meals, nothing to eat or drink at least 2 hours prior to bed, limit caffeine, alcohol, as well as spicy foods Meds to limit or avoid if possible: NSAIDS Elevate HOB if possible Current med: PPI Malignant neoplasm of cervix uteri, unspecified (CMS/HCC) Had in the past, had hysterectomy Tobacco user The patient has been advised of the risks of continued smoking: stroke, NH, all forms of cancer, lung disease, and . Options for quitting smoking include: cold turkey, hypnosis, acupuncture, nicotine replacement meds (gum, lozenges, and patches), Buproprion, and Varenicline. At this time pt is encouraged to evaluate their goals for wanting to quit smoking, and reach out to provider when ready to start this process Willing to trial nicotine patches Relevant Medications Varenicline Tartrate, Starter, (Chantix Starting ) 0.5 MG X 11 & 1 MG X 42 tablet therapy pack varenicline (Chantix) 1 MG tablet Other Relevant Orders Urinalysis with reflex microscopic (clean catch) Hyperlipidemia (CMS/HCC) On statin therapy Check labs yearly and prn dose changes Relevant Orders Lipid panel Gout Relevant Orders Urinalysis with reflex microscopic (clean catch) Uric acid Venous ulcer of right leg (CMS/HCC) Continue with wound for treatment Had recent med added Discussed need for tight glucose control as well as QUITTING SMOKING Failure to do so can result in amputation Encounter for smoking cessation counseling Relevant Medications Varenicline Tartrate, Starter, (Chantix Starting ) 0.5 MG X 11 & 1 MG X 42 tablet therapy pack varenicline (Chantix) 1 MG tablet Morbid (severe) obesity due to excess calories (CMS/[facility]) Discussed with patient their BMI (actual, verses recommended). We have also discussed lifestyle modifications: attempts to perform physical activity as chronic conditions allow, also to monitor dietary intake: increasing protein/fruits/veggies and lowering carb intake (unless contraindicated). Limit sodas, juices, and sugary drinks. Also discussed oral medications that can be utilized for weight loss, as well as surgical options for weight loss. Is currently taking mounjaro for DM Body mass index (BMI) 50.0-59.9, adult (CMS/HCC) Chronic diastolic heart failure (CMS/HCC) Current meds; asa, farxiga, lasix, hydralazine, lisinopril, Follows with cardilogy Reviewed 08/02 notes 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 (CMS/HCC) Follows with wound, legs are wrapped, 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 as possible Vitamin deficiency Relevant Orders Vitamin D 25 hydroxy Antibiotic-induced yeast infection Relevant Medications fluconazole (Diflucan) 150 MG tablet Other Visit Diagnoses Gastro-esophageal reflux disease without esophagitis Relevant Medications omeprazole (PriLOSEC) [address] capsule Edema, unspecified Relevant Medications potassium chloride ER (Micro-K) 10 MEQ ER capsule Edema Relevant Medications potassium chloride ER (Micro-K) 10 MEQ ER capsule Hyperlipidemia, unspecified (CMS/HCC) Relevant Medications simvastatin (Zocor) 10 MG tablet Other Relevant Orders Lipid panel Hepatic function panel Associated Problem(s): Hyperlipidemia (CMS/HCC) On statin therapy Check labs yearly and prn dose changes Associated Problem(s): Tobacco user The patient has been advised of the risks of continued smoking: stroke, NH, all forms of cancer, lung disease, and . Options for quitting smoking include: cold turkey, hypnosis, acupuncture, nicotine replacement meds (gum, lozenges, and patches), Buproprion, and Varenicline. At this time pt is encouraged to evaluate their goals for wanting to quit smoking, and reach out to provider when ready to start this process Willing to trial nicotine patches Associated Problem(s): Anxiety and depression (CMS/HCC) Current meds: elavil, duloxtine, PHQ 9= 5 IRENE 7=3 Current meds: TCA, and duloxetine Associated Problem(s): Type 2 diabetes mellitus with complication, with long-term current use of insulin ([facility]) Check blood sugars daily, notify if <70 [...] to follow with Libby On asa, tila, statin, farxiga, mounjaro Most recent A1c is 9.2% on 05/27/24 Associated Problem(s): Morbid (severe) obesity due to excess calories ([facility]) Discussed with patient their BMI (actual, verses recommended). We have also discussed lifestyle modifications: attempts to perform physical activity as chronic conditions allow, also to monitor dietary intake: increasing protein/fruits/veggies and lowering carb intake (unless contraindicated). Limit sodas, juices, and sugary drinks. Also discussed oral medications that can be utilized for weight loss, as well as surgical options for weight loss. Is currently taking mounjaro for DM Associated Problem(s): Bilateral lower extremity edema Limit sodium , elevate legs, furosemide Associated Problem(s): Malignant neoplasm of cervix uteri, unspecified ([facility]) Had in the past, had hysterectomy Associated Problem(s): GERD (gastroesophageal reflux disease) Recommendations: freq small meals, nothing to eat or drink at least 2 hours prior to bed, limit caffeine, alcohol, as well as spicy foods Meds to limit or avoid if possible: NSAIDS Elevate HOB if possible Current med: PPI Associated Problem(s): 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 (CMS/HCC) Follows with wound, legs are wrapped, 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 as possible Associated Problem(s): Hypertension (CMS/HCC) Please check blood pressure daily and record DASH diet Limit caffeine Take medication as directed Contact office if chest pain, pressure, dizziness, shortness of breath, swelling legs Recommend slow position changes Current meds: hydralazine, lisinopril, Associated Problem(s): Chronic diastolic heart failure (CMS/HCC) Current meds; asa, farxiga, lasix, hydralazine, lisinopril, Follows with cardilogy Reviewed 08/02 notes Associated Problem(s): COPD (chronic obstructive pulmonary disease) (CMS/HCC) Follows with verena Needs smoking cessation Current meds: duoneb, albuterol, daliresp, Associated Problem(s): Asthma (CMS/HCC) Current meds: albuterol, duoneb, 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 It is recommended that you wear your PAP device any time while in bed sleeping. Not using the PAP device can increase your risk of elevated/uncontrolled high blood pressure, atrial fibrillation, heart attack, stroke, or sudden . Compliance with PAP: How many hours of use per night: Do you feel more refreshed in the morning: Company that supplies your machine and tubing/filters etc: Doctor that manages your DANIEL: DME needs to send her a new mask for her machine, I have emphasized the importance of getting in touch with them so she can do this Associated Problem(s): Diabetic neuropathy (CMS/HCC) Continue with cintia hudson mgmt is prescribing OARRS reviewed Fu in 3 months Goal: tighter glucose control documented in this encounter [facility] 08-08-2024 Note [place] [facility]iology - [facility] Subjective Mitzi Macias is a [...] limb ischemia of right lower extremity (CMS/HCC) Hyperpigmentation of skin 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 2 diabetes mellitus (CMS/HCC) Myelolipoma of adrenal gland Venous ulcer of right leg (CMS/HCC) HPI Patient was has history of chronic [...] Diagnosis Date COPD (chronic obstructive pulmonary disease) (CMS/HCC) Diabetes mellitus (CMS/HCC) Hyperlipidemia Hypertension Sleep apnea Past Surgical History: [...] , Rfl: ergocalciferol (Vitamin D-2) 1.25 MG (25508 Units) capsule, Take 1.25 mg by mouth., [...] and at bedtime., Disp: , Rfl: HYDROcodone-acetaminophen ([place]) 5-325 mg tablet, TAKE 1 TABLET BY [...] TWICE DAILY, Disp: (more content not included)... [facility] 07-14-2024 History of Present illness Narrative [...] or chew. ergocalciferol (Vitamin D2) 1.25 MG (21218 UT) capsule TAKE 1 CAPSULE BY MOUTH ONE TIME PER WEEK furosemide (LASIX) 40 mg, Oral, Daily furosemide (LASIX) 20 mg, Oral, Daily PRN, Take in the afternoon as needed hydrALAZINE (APRESOLINE) 25 mg, Oral, 2 times daily HYDROcodone-acetaminophen ([place]) 5-325 MG tablet 1 tablet, 3 times [...] rate Elevated WBC count Essential (primary) hypertension ([facility]) GERD (gastroesophageal reflux disease) 09/17/2023 Hyperlipidemia ([facility]) 09/17/2023 Hypertension ([facility]) 07/10/2023 Insomnia 09/17/2023 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 ([facility]) Lower extremity edema 09/17/2023 Mixed hyperlipidemia ([facility]) Morbid (severe) obesity due to excess calories ([facility]) Obstructive sleep apnea 07/10/2023 PAD (peripheral artery disease) ([facility]) 09/17/2023 Pancreatitis 09/17/2023 Pneumonia 09/17/2023 Proteinuria, unspecified Pulmonary hypertension ([facility]) 09/17/2023 Radiculopathy, lumbar region 09/17/2023 Tobacco user 09/17/2023 Type 2 diabetes mellitus with complication, with long-term current use of insulin ([facility]) 07/10/2023 Unilateral primary osteoarthritis, right hip 09/17/2023 [...] This Visit Diabetic neuropathy ([facility]) Continue with tristan EAST reviewed Fu in 3 months COPD (chronic obstructive pulmonary disease) ([facility]) Stable at this time, no changes in meds Encouraged smoking cessation Cont with dr Yañez Hypertension ([facility]) - Primary Please check blood pressure daily and record DASH diet Limit caffeine Take medication as directed Contact office if chest pain, pressure, dizziness, shortness of breath, swelling legs Recommend slow position changes Current meds: hydralazine, lisinopril, Type 2 diabetes mellitus with complication, with long-term current use of insulin ([facility]) Check blood sugars daily, notify if <70 [...] PAD (peripheral artery disease) ([facility]/HCC) Asa, statin Quit smoking BP and DM [...] of the risks of continued smoking: stroke, NH, all forms of cancer, lung disease, and [...] 4 cm in diameter ([facility]) Continue with Urology Kidney stone Continue with Urology Non-seasonal allergic rhinitis Relevant Medications cetirizine (ZyrTEC) 10 MG tablet Critical limb ischemia of right lower extremity ([facility]) Saw vascular, does have narrowing in arteries in legs, and thus the wounds not healing At this point they strongly urge to quit smoking or risk limb amputation Cont asa and statin Also good blood pressure and sugar control Venous ulcer of right leg ([facility]) Encounter for smoking cessation counseling Relevant Medications nicotine (Nicoderm, Step 1) 21 MG/24HR patch Other Visit Diagnoses Type 2 diabetes mellitus with unspecified complications ([facility]) Quitting smokinppd, chantix not helped, ] Face time with pt, spent 15 minutes with pt Associated Problem(s): Tobacco user The patient has been advised of the risks of continued smoking: stroke, NH, all forms of cancer, lung disease, and [...] current use of insulin ([facility]) Check blood sugars daily, notify if <70 [...] in 3 months documented in this encounter [facility] 06-11-2024 Hospital Discharge instructions Patient Education [...] require a prescription. You can also purchase emcp-lmc-mjowpki medicines. Medicines may have nicotine in them [...] and encouragement. Call telephone quitlines, such as 0-004-DUDP-NOW, reach out to support groups, or work [...] provider. Document Revised: 06/16/2022 Document Reviewed: 06/16/2022 [employer] Patient Education 2023 [employer] 06/11/2024 10:39:22 Dietary Guidelines to Help Prevent [...] include: ?8 oz (237 mL) of milk, izfyskj-foezwtxqixhu-iblli milk, and calcium-fortifiedfruit juice. Calcium-fortified means that [...] ?Spinach (cooked), rhubarb, beets, sweet potatoes, and Bruneian chard. ?Peanuts. ?Potato chips, egyptian fries, and baked potatoes with skin on. ?Nuts and nut products. ?Chocolate. If you regularly take a diuretic medicine, make sure to eat at least 1 or 2 servings of fruits or vegetables that are high in potassium each day. These include: ?Avocado. ?Banana. ?[place], prune, carrot, or tomato juice. ?Baked potato. [...] magnesium, fish oil, or vitamin B6. Take mdzg-njq-mbqodyl and prescription medicines only as told by [...] Casseroles. Pizza. Lasagna. Frozen meals. Potato chips. Kenyan fries. The items listed above may not [...] provider. Document Revised: 10/05/2022 Document Reviewed: 10/05/2022 [employer] Patient Education 2023 [employer] Follow Up Care 05/06/2024 08:24:56 With:REGLA PHIPPS, Elbert Joya, URL Address: [facility] [address], [place] [address]- When: Unknown [facility] 05-27-2024 History of Present illness Narrative Mitzi [...] or chew. ergocalciferol (Vitamin D2) 1.25 MG (59671 UT) capsule TAKE 1 CAPSULE BY MOUTH ONE TIME PER WEEK furosemide (LASIX) 20 mg, Oral, Daily PRN, Take in the afternoon as needed furosemide (LASIX) 40 mg, Oral, Daily Glucose Blood (ACCU-CHEK JAQUI PLUS ) 4 times daily hydrALAZINE (APRESOLINE) 25 mg, Oral, 2 times daily HYDROcodone-acetaminophen ([place]) 5-325 MG tablet 1 tablet, 3 times [...] CT Albuminuria 09/17/2023 Angiomyolipoma Anxiety and depression ([facility]) 07/10/2023 Asthma ([facility]) 07/10/2023 Body mass index (BMI) 50.0-59.9, adult [...] [facility]) 07/10/2023 Insomnia 09/17/2023 assisted (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 ([facility]) Lower extremity edema 09/17/2023 Morbid (severe) obesity due to excess calories ([facility]) Obstructive sleep apnea 07/10/2023 PAD (peripheral artery disease) ([facility]) 09/17/2023 Pancreatitis 09/17/2023 Pneumonia 09/17/2023 Proteinuria, unspecified Pulmonary hypertension ([facility]) [...] current use of insulin ([facility]) - POCT glucose manually resulted - POCT glycosylated hemoglobin (Hb A1C) docked device We will continue with Lantus 58, lispro 02/16/12 according to meal size, Mounjaro 15 mg once weekly, Farxiga 5 mg once a day Encounter for dietary consultation Vitamin D deficiency Primary hypertension ([facility]) To follow with her PCP Insulin long-term use ([facility]) Hyperlipemia, mixed ([facility]) Continue with Zocor 10 mg once daily Microalbuminuria Class 3 severe obesity due to excess calories with serious comorbidity and body mass index (BMI) of 50.0 to 59.9 in adult ([facility]) Diet and exercise reviewed with the patient Follow up in about 3 months (around 08/27/2024). documented in this encounter [facility] 04-14-2024 History of Present illness [...] Associated Problem(s): Diabetic neuropathy ([facility]) Continue with tristan EAST reviewed Fu in [...] being taken. 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 Hypertension This is [...] or chew. ergocalciferol (Vitamin D2) 1.25 MG (30162 UT) capsule TAKE 1 CAPSULE BY MOUTH ONE TIME PER WEEK furosemide (LASIX) 20 mg, Oral, Daily PRN, Take in the afternoon as needed furosemide (LASIX) 40 mg, Oral, Daily Glucose Blood (ACCU-CHEK JAQUI PLUS ) 4 times daily HumaLOG KWIKPEN 100 UNIT/ML injection Subcutaneous hydrALAZINE (APRESOLINE) 25 mg, Oral, 2 times daily HYDROcodone-acetaminophen ([place]) 5-325 MG tablet 1 tablet, 3 times [...] This Visit Diabetic neuropathy ([facility]) Continue with tristan EAST reviewed Fu in 3 months Relevant Medications pregabalin (Lyrica) 300 MG capsule COPD (chronic obstructive pulmonary disease) ([facility]) - Primary Stable at this time, no changes in meds Encouraged smoking cessation Cont with dr Yañez Hypertension ([facility]) Stable on current meds Refill meds Relevant Medications hydrALAZINE (Apresoline) 25 MG tablet lisinopril 20 MG tablet Type 2 diabetes mellitus with complication, with long-term current use of insulin ([facility]) Check blood sugars daily, follow w Endo. [...] 500 MCG tablet documented in this encounter [facility] 11-14-2023 Note [place] [facility]iology - [facility] Subjective Mitzi Macias is a 53 y.o. year old female being seen as new patient to establish care. Ref from Mckayla Blas CNP for pulmonary hypertension. She had echo in Aug 2023 while inpatient at [facility] for pneumonia and COPD exacerbation. Denies [...] PAD (peripheral artery disease) ([facility]) Pneumonia Encounter for screening mammogram for malignant neoplasm of breast Pulmonary hypertension ([facility]) Radiculopathy, lumbar region Current smoker Type 2 [...] was admitted in early 2023 to [facility] with hypoxemia and treated as [...] Gene (more content not included)... [facility] 11-15-2022 Hospital Discharge instructions Patient Education [...] include: ?8 oz (237 mL) of milk, aeazuvc-ebadhajurhfo-twplp milk, and calcium-fortifiedfruit juice. Calcium-fortified means that [...] ?Spinach (cooked), rhubarb, beets, sweet potatoes, and Bruneian chard. ?Peanuts. ?Potato chips, egyptian fries, and baked potatoes with skin on. ?Nuts and nut products. ?Chocolate. If you regularly take a diuretic medicine, make sure to eat at least 1 or 2 servings of fruits or vegetables that are high in potassium each day. These include: ?Avocado. ?Banana. ?[place], prune, carrot, or tomato juice. ?Baked potato. [...] magnesium, fish oil, or vitamin B6. Take xeao-gaa-wenfrbh and prescription medicines only as told by [...] Casseroles. Pizza. Lasagna. Frozen meals. Potato chips. Kenyan fries. The items listed above may not [...] provider. Document Revised: 03/06/2022 Document Reviewed: 03/06/2022 [employer] Patient Education 2022 [employer] Follow Up Care 02/06/2022 11:44:09 With:SARAH VEGA PA-C, URL Address: [address] [place] [address] When: Unknown [facility] Note CONSULTATION CONSULTATION DATE: 08/24/2022 HISTORY [...] We maintain her on pain medication with [place] Gilead 5/325 t.i.d., diclofenac 75 mg b.i.d. Her [...] her at this point. A refill for [place] 5/325 t.i.d. and diclofenac 75 mg b.i.d. will be sent to the pharmacy. Vitamin compliance and nutrition were discussed and enforced. I did highly encourage her to use exercise bands to increase the strength in her lower extremities. We will see her in three months' time, unless otherwise indicated, and patient agrees. [facility] 05-11-2022 Note CONSULTATION CONSULTATION DATE: [...] 150. Medications include Lyrica 300 mg b.i.d., [place] Gilead 5/325 t.i.d., diclofenac 75 mg b.i.d. and [...] her medications today. We will maintain Lyrica, [place] and diclofenac at the set dose and frequency. We will follow-up in the clinic in three months' time. The patient is in agreement to this. Vitamin importance and nutrition were discussed. [facility] 04-20-2022 Note CONSULTATION CONSULTATION DATE: [...] medications include Tylenol, Lyrica 300 mg b.i.d., [place] 5/325 t.i.d., amitriptyline, diclofenac and duloxetine. Patient's [...] up in the clinic. [facility] 03-08-2022 Evaluation note Encounter Date [...] to the DANIEL. Thrombocytopenia is unclear etiology. [facility] Other 08-15-2022 Evaluation note* Encounter Date Diagnosis [...] lisinopril I will continue that. Feb, Kimani carlin kid w cr kid I-IV (ICD-10 - [...] follow with Dr. Souza and Dr. Arauz. [facility] Other 08-01-2022 Hospital Discharge instructions Patient Education [...] fried and sweet foods. General instructions Take qtvh-iua-lzfqyml and prescription medicines only as told by [...] 04/21/2010 Document Revised: 10/16/2019 Document Reviewed: 07/11/2018 [employer] Patient Education 2020 [employer]. Follow Up Care 01/05/2022 12:02:03 With:REGLA PHIPPS, Elbert Joya, URL Address: [facility] [address] , [place] [address]- [phone] When:Within 6 Month(s) Comments:w/ repeat CT A/P [facility] 07-14-2022 NoteCONSULTATION PROCEDURE DATE: 01/19/2022 [...] pattern and the patient tolerated it well. [facility] Signed and Approved by: GIL VALENZUELA . 01/27/2022 14:15:00[facility] [id number] NoteCONSULTATION CONSULTATION DATE: 01/19/2022 This is a [...] today. Medications include Lyrica 300 mg b.i.d., [place]ad 5/325 t.i.d., diclofenac 75 mg b.i.d. and [...] in three months' time unless otherwise indicated. [facility] Signed and Approved by: GIL VALENZUELA . 01/27/2022 14:15:00[facility]ointments Appointment Date:08/14/2022 09:15:00 AM Scheduled Provider:Elbert ARAUZ MD Location:[facility] Appointment Type:URO Office Visit [facility] evaluation + Plan note Future Appointments Appointment Date:04/22/2024 10:00:00 AM Scheduled Provider:SARAH VEGA PA-C Location:[facility] Appointment Type:URO Office Visit [facility] evaluation note* Diagnosis Type 2 [...] with unspecified complications (CMS/HCC) Anxiety and depression (CMS/[facility]) Gastro-esophageal reflux disease without esophagitis Edema, unspecified Edema Diabetic polyneuropathy associated with type 2 diabetes mellitus ([facility]) Chronic obstructive pulmonary disease, unspecified ([facility]) Pulmonary emphysema, unspecified emphysema type ([facility]) Bilateral lower extremity edema Tobacco user Tobacco use disorder Hyperpigmentation of skin Other dyschromia documented in this encounter [facility]* Diagnosis Obstructive sleep apnea- Primary Obstructive sleep apnea (adult) (pediatric) Pulmonary emphysema, unspecified emphysema type ([facility]) Primary hypertension ([facility]) Unspecified essential hypertension Type 2 diabetes mellitus with complication, with long-term current use of insulin ([facility]) Anxiety and depression ([facility]) Bilateral lower extremity edema Pulmonary emphysema, unspecified emphysema type ([facility])- Primary Primary hypertension ([facility]) Unspecified essential hypertension Class 3 severe obesity with serious comorbidity and body mass index (BMI) of 50.0 to 59.9 in adult, unspecified obesity type ([facility]) Obstructive sleep apnea Obstructive sleep apnea (adult) (pediatric) Pulmonary hypertension ([facility]) Other chronic pulmonary heart diseases Tobacco user Tobacco use disorder Cardiomegaly Primary hypertension ([facility])- Primary Unspecified essential hypertension Gastroesophageal reflux disease, unspecified whether esophagitis present Type 2 diabetes mellitus with complication, with long-term current use of insulin ([facility] Mixed hyperlipidemia ([facility]) Mixed hyperlipidemia Tobacco user Tobacco use disorder Encounter for screening mammogram for malignant neoplasm of breast Chronic obstructive pulmonary disease, unspecified ([facility]) Other specified chronic obstructive pulmonary disease ([facility] Anxiety and depression ([facility]) Edema, unspecified Edema Hyperlipidemia, unspecified ([facility]) Diabetic polyneuropathy associated with type 2 diabetes mellitus ([facility]) Gout, unspecified cause, unspecified chronicity, unspecified site Non-seasonal allergic rhinitis, unspecified trigger Bilateral lower extremity edema COPD exacerbation ([facility]) Obstructive chronic bronchitis with exacerbation Pulmonary emphysema, unspecified emphysema type ([facility]/HCC) Venous insufficiency Unspecified venous (peripheral) insufficiency Candidiasis of breast COPD exacerbation ([facility])- Primary Obstructive chronic bronchitis with exacerbation Pulmonary hypertension ([facility]) Other chronic pulmonary heart diseases Class 3 severe obesity with serious comorbidity and body mass index (BMI) of 50.0 to 59.9 in adult, unspecified obesity type ([facility]) Encounter for subsequent annual wellness visit (AWV) in Medicare patient- Primary Type 2 diabetes mellitus with unspecified complications ([facility]) Pulmonary emphysema, unspecified emphysema type ([facility] Moderate persistent asthma without complication ([facility]) Primary hypertension ([facility]) Unspecified essential hypertension Type 2 diabetes mellitus with complication, with long-term current use of insulin ([facility]) Class 3 severe obesity with serious comorbidity and body mass index (BMI) of 50.0 to 59.9 in adult, unspecified obesity type ([facility]) Tobacco user Tobacco use disorder Other headache syndrome Malignant neoplasm of cervix uteri, unspecified ([facility]) Other specified disorders of adrenal gland ([facility]) Major depressive disorder, single episode, mild ([facility]) ([facility]) Major depressive disorder, single episode, mild 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 exposed ([facility]) Chronic respiratory failure, unspecified whether with hypoxia or hypercapnia ([facility]) Disorder of adrenal gland, unspecified ([facility]) Non-pressure chronic ulcer of other part of right lower leg limited to breakdown of skin ([facility]) Non-recurrent acute suppurative otitis media of left ear without spontaneous rupture of tympanic membrane Primary hypertension ([facility])- Primary Unspecified essential hypertension Insomnia Insomnia, unspecified Type 2 diabetes mellitus with complication, with long-term current use of insulin ([facility]) Non-seasonal allergic rhinitis, unspecified trigger Type 2 diabetes mellitus with unspecified complications ([facility]) Anxiety and depression ([facility]) Gastro-esophageal reflux disease without esophagitis Edema, unspecified Edema Diabetic polyneuropathy associated with type 2 diabetes mellitus ([facility]) Chronic obstructive pulmonary disease, unspecified ([facility]) Pulmonary emphysema, unspecified emphysema type (CMS/[facility]) Bilateral lower extremity edema Tobacco user Tobacco use disorder Hyperpigmentation of skin Other dyschromia Type 2 diabetes mellitus with hyperglycemia, with long-term current use of insulin ([facility])- Primary Encounter for dietary consultation Vitamin D deficiency Primary hypertension ([facility]) Unspecified essential hypertension Insulin long-term use ([facility]) Encounter for long-term (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 Hyperlipemia, mixed ([facility]) Mixed hyperlipidemia Microalbuminuria Proteinuria Class 3 severe obesity due to excess calories with serious comorbidity and body mass index (BMI) of 50.0 to 59.9 in adult ([facility]) documented in this encounter [facility] HealthcareEvaluation [facility]* Diagnosis Hyperlipidemia, unspecified ([facility]) Bilateral lower extremity edema documented in this encounter [facility]* Diagnosis Vitamin D deficiency, unspecified documented in this encounter [facility]* Diagnosis Obstructive sleep apnea- Primary Obstructive sleep apnea (adult) (pediatric) Pulmonary emphysema, unspecified emphysema type ([facility]) Primary hypertension ([facility]) Unspecified essential hypertension Type 2 diabetes mellitus with complication, with long-term current use of insulin ([facility]) Anxiety and depression ([facility]) Bilateral lower extremity edema Pulmonary emphysema, unspecified emphysema type ([facility])- Primary Primary hypertension ([facility]) Unspecified essential hypertension Class 3 severe obesity with serious comorbidity and body mass index (BMI) of 50.0 to 59.9 in adult, unspecified obesity type ([facility]) Obstructive sleep apnea Obstructive sleep apnea (adult) (pediatric) Pulmonary hypertension ([facility]) Other chronic pulmonary heart diseases Tobacco user Tobacco use disorder Cardiomegaly Primary hypertension ([facility])- Primary Unspecified essential hypertension Gastroesophageal reflux disease, unspecified whether esophagitis present Type 2 diabetes mellitus with complication, with long-term current use of insulin ([facility]) Mixed hyperlipidemia ([facility]) Mixed hyperlipidemia Tobacco user Tobacco use disorder Encounter for screening mammogram for malignant neoplasm of breast Chronic obstructive pulmonary disease, unspecified ([facility]) Other specified chronic obstructive pulmonary disease ([facility] Anxiety and depression ([facility]) Edema, unspecified Edema Hyperlipidemia, unspecified ([facility]) Diabetic polyneuropathy associated with type 2 diabetes mellitus ([facility]) Gout, unspecified cause, unspecified chronicity, unspecified site Non-seasonal allergic rhinitis, unspecified trigger Bilateral lower extremity edema COPD exacerbation ([facility]) Obstructive chronic bronchitis with exacerbation Pulmonary emphysema, unspecified emphysema type ([facility]) Venous insufficiency Unspecified venous (peripheral) insufficiency Candidiasis of breast COPD exacerbation ([facility])- Primary Obstructive chronic bronchitis with exacerbation Pulmonary hypertension ([facility]) Other chronic pulmonary heart diseases Class 3 severe obesity with serious comorbidity and body mass index (BMI) of 50.0 to 59.9 in adult, unspecified obesity type ([facility]) Encounter for subsequent annual wellness visit (AWV) in Medicare patient- Primary Type 2 diabetes mellitus with unspecified complications (CMS/HCC) Pulmonary emphysema, unspecified emphysema type (CMS/HCC) Moderate persistent asthma without complication (CMS/HCC) Primary hypertension (CMS/HCC) Unspecified essential hypertension Type 2 diabetes mellitus with complication, with long-term current use of insulin ([facility]) Class 3 severe obesity with serious comorbidity and body mass index (BMI) of 50.0 to 59.9 in adult, unspecified obesity type (CMS/HCC) Tobacco user Tobacco use disorder Other headache syndrome Malignant neoplasm of cervix uteri, unspecified (CMS/HCC) Other specified disorders of adrenal gland (CMS/HCC) Major depressive disorder, single episode, mild (HCC) ([facility]) Major depressive disorder, single episode, mild 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 exposed ([facility]) Chronic respiratory failure, unspecified whether with hypoxia or hypercapnia ([facility]) Disorder of adrenal gland, unspecified (CMS/[facility]) Non-pressure chronic ulcer of other part of right lower leg limited to breakdown of skin (CMS/[facility]) Non-recurrent acute suppurative otitis media of left ear without spontaneous rupture of tympanic membrane Primary hypertension (CMS/HCC)- Primary Unspecified essential hypertension Insomnia Insomnia, unspecified Type 2 diabetes mellitus with complication, with long-term current use of insulin ([facility]) Non-seasonal allergic rhinitis, unspecified trigger Type 2 diabetes mellitus with unspecified complications ([facility]) Anxiety and depression (CMS/[facility]) Gastro-esophageal reflux disease without esophagitis Edema, unspecified Edema Diabetic polyneuropathy associated with type 2 diabetes mellitus (CMS/[facility]) Chronic obstructive pulmonary disease, unspecified (CMS/HCC) Pulmonary [...] complication, with long-term current use of insulin (CMS/[facility]) Anxiety and depression (CMS/[facility]) Bilateral lower extremity edema Pulmonary emphysema, unspecified emphysema type (CMS/HCC)- Primary Primary hypertension (CMS/HCC) Unspecified essential hypertension Class 3 severe obesity with serious comorbidity and body mass index (BMI) of 50.0 to 59.9 in adult, unspecified obesity type ([facility]/HCC) Obstructive sleep apnea Obstructive sleep apnea (adult) (pediatric) Pulmonary hypertension (CMS/[facility]) Other chronic pulmonary heart diseases Tobacco user Tobacco use disorder Cardiomegaly Primary hypertension (CMS/HCC)- Primary Unspecified essential hypertension Gastroesophageal reflux disease, unspecified whether esophagitis present Type 2 diabetes mellitus with complication, with long-term current use of insulin (CMS/[facility]) Mixed hyperlipidemia (CMS/[facility]) Mixed hyperlipidemia Tobacco user Tobacco use disorder Encounter for screening mammogram for malignant neoplasm of breast Chronic obstructive pulmonary disease, unspecified (CMS/[facility]) Other specified chronic obstructive pulmonary disease (CMS/[facility]) Anxiety and depression (CMS/[facility]) Edema, unspecified Edema Hyperlipidemia, unspecified (CMS/[facility]) Diabetic polyneuropathy associated with type 2 diabetes mellitus ([facility]) Gout, unspecified cause, unspecified chronicity, unspecified site Non-seasonal allergic rhinitis, unspecified trigger Bilateral lower extremity edema COPD exacerbation ([facility]) Obstructive chronic bronchitis with exacerbation Pulmonary emphysema, unspecified emphysema type ([facility]) Venous insufficiency Unspecified venous (peripheral) insufficiency Candidiasis of breast COPD exacerbation (CMS/[facility])- Primary Obstructive chronic bronchitis with exacerbation Pulmonary hypertension (CMS/[facility]) Other chronic pulmonary heart diseases Class 3 severe obesity with serious comorbidity and body mass index (BMI) of 50.0 to 59.9 in adult, unspecified obesity type ([facility]) Encounter for subsequent annual wellness visit (AWV) in Medicare patient- Primary Type 2 diabetes mellitus with unspecified complications ([facility]) Pulmonary emphysema, unspecified emphysema type ([facility]) Moderate persistent asthma without complication (CMS/[facility]) Primary hypertension ([facility]) Unspecified essential hypertension Type 2 diabetes mellitus with complication, with long-term current use of insulin ([facility]) Class 3 severe obesity with serious comorbidity and body mass index (BMI) of 50.0 to 59.9 in adult, unspecified obesity type ([facility]) Tobacco user Tobacco use disorder Other headache syndrome Malignant neoplasm of cervix uteri, unspecified (CMS/[facility]) Other specified disorders of adrenal gland (CMS/[facility]) Major depressive disorder, single episode, mild (HCC) ([facility]) Major depressive disorder, single episode, mild 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 exposed (CMS/[facility]) Chronic respiratory failure, unspecified whether with hypoxia or hypercapnia (CMS/[facility]) Disorder of adrenal gland, unspecified (CMS/[facility]) Non-pressure chronic ulcer of other part of right lower leg limited to breakdown of skin (CMS/[facility]) Non-recurrent acute suppurative otitis media of left ear without spontaneous rupture of tympanic membrane Primary hypertension ([facility])- Primary Unspecified essential hypertension Insomnia Insomnia, unspecified Type 2 diabetes mellitus with complication, with long-term current use of insulin (CMS/[facility]) Non-seasonal allergic rhinitis, unspecified trigger Type 2 diabetes mellitus with unspecified complications (CMS/[facility]) Anxiety and depression (CMS/[facility]) Gastro-esophageal reflux disease without esophagitis Edema, unspecified Edema Diabetic polyneuropathy associated with type 2 diabetes mellitus ([facility]) Chronic obstructive pulmonary disease, unspecified (CMS/[facility]) Pulmonary emphysema, unspecified emphysema type ([facility]) Bilateral lower extremity edema Tobacco user Tobacco use disorder Hyperpigmentation of skin Other dyschromia Primary hypertension ([facility])- Primary Unspecified essential hypertension Diabetic polyneuropathy associated with type 2 diabetes mellitus ([facility]) Pulmonary emphysema, unspecified emphysema type ([facility]) Critical limb ischemia of right lower extremity ([facility]) PAD (peripheral artery disease) ([facility]) Unspecified peripheral vascular disease Gastroesophageal reflux disease, unspecified whether esophagitis present Bilateral lower extremity edema Venous ulcer of right leg ([facility]) Type 2 diabetes mellitus with complication, with long-term current use of insulin ([facility]) Tobacco user Tobacco use disorder Encounter for smoking cessation counseling Kidney stone Calculus of kidney Adrenal mass 1 cm to 4 cm in diameter ([facility]) Radiculopathy, lumbar region Thoracic or lumbosacral neuritis or radiculitis, unspecified Non-seasonal allergic rhinitis, unspecified trigger Type 2 diabetes mellitus with unspecified complications ([facility]) documented in this encounter [facility]* Diagnosis Obstructive sleep apnea- Primary Obstructive sleep apnea (adult) (pediatric) Pulmonary emphysema, unspecified emphysema type (CMS/HCC) Primary hypertension ([facility]) Unspecified essential hypertension Type 2 diabetes mellitus with complication, with long-term current use of insulin ([facility]) Anxiety and depression ([facility]) Bilateral lower extremity edema Pulmonary emphysema, unspecified emphysema type (CMS/HCC)- Primary Primary hypertension (CMS/HCC) Unspecified essential hypertension Class 3 severe obesity with serious comorbidity and body mass index (BMI) of 50.0 to 59.9 in adult, unspecified obesity type ([facility]/HCC) Obstructive sleep apnea Obstructive sleep apnea (adult) (pediatric) Pulmonary hypertension (CMS/HCC) Other chronic pulmonary heart diseases Tobacco user Tobacco use disorder Cardiomegaly Primary hypertension (CMS/HCC)- Primary Unspecified essential hypertension Gastroesophageal reflux disease, unspecified whether esophagitis present Type 2 diabetes mellitus with complication, with long-term current use of insulin (CMS/[facility]) Mixed hyperlipidemia (CMS/HCC) Mixed hyperlipidemia Tobacco user Tobacco use disorder Encounter for screening mammogram for malignant neoplasm of breast Chronic obstructive pulmonary disease, unspecified (CMS/[facility]) Other specified chronic obstructive pulmonary disease (CMS/[facility]) Anxiety and depression (CMS/HCC) Edema, unspecified Edema Hyperlipidemia, unspecified (CMS/[facility]) Diabetic polyneuropathy associated with type 2 diabetes mellitus (CMS/[facility]) Gout, unspecified cause, unspecified chronicity, unspecified site Non-seasonal allergic rhinitis, unspecified trigger Bilateral lower extremity edema COPD exacerbation (CMS/[facility]) Obstructive chronic bronchitis with exacerbation Pulmonary emphysema, unspecified emphysema type (CMS/HCC) Venous insufficiency Unspecified venous (peripheral) insufficiency Candidiasis of breast COPD exacerbation (CMS/[facility])- Primary Obstructive chronic bronchitis with exacerbation Pulmonary hypertension (CMS/HCC) Other chronic pulmonary heart diseases Class 3 severe obesity with serious comorbidity and body mass index (BMI) of 50.0 to 59.9 in adult, unspecified obesity type ([facility]) Encounter for subsequent annual wellness visit (AWV) in Medicare patient- Primary Type 2 diabetes mellitus with unspecified complications (CMS/HCC) Pulmonary emphysema, unspecified emphysema type (CMS/HCC) Moderate persistent asthma without complication (CMS/HCC) Primary hypertension (CMS/[facility]) Unspecified essential hypertension Type 2 diabetes mellitus with complication, with long-term current use of insulin ([facility]) Class 3 severe obesity with serious comorbidity and body mass index (BMI) of 50.0 to 59.9 in adult, unspecified obesity type ([facility]/HCC) Tobacco user Tobacco use disorder Other headache syndrome Malignant neoplasm of cervix uteri, unspecified ([facility]) Other specified disorders of adrenal gland (CMS/[facility]) Major depressive disorder, single episode, mild (HCC) ([facility]) Major depressive disorder, single episode, mild 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 exposed (CMS/[facility]) Chronic respiratory failure, unspecified whether with hypoxia or hypercapnia (CMS/HCC) Disorder of adrenal gland, unspecified (CMS/HCC) Non-pressure chronic ulcer of other part of right lower leg limited to breakdown of skin (CMS/HCC) Non-recurrent acute suppurative otitis media of left ear without spontaneous rupture of tympanic membrane Primary hypertension (CMS/[facility])- Primary Unspecified essential hypertension Insomnia Insomnia, unspecified Type 2 diabetes mellitus with complication, with long-term current use of insulin (CMS/HCC) Non-seasonal allergic rhinitis, unspecified trigger Type 2 diabetes mellitus with unspecified complications (CMS/HCC) Anxiety and depression (CMS/[facility]) Gastro-esophageal reflux disease without esophagitis Edema, unspecified Edema Diabetic polyneuropathy associated with type 2 diabetes mellitus (CMS/[facility]) Chronic obstructive pulmonary disease, unspecified (CMS/[facility]) Pulmonary emphysema, unspecified emphysema type (CMS/HCC) Bilateral lower extremity edema Tobacco user Tobacco use disorder Hyperpigmentation of skin Other dyschromia Primary hypertension (CMS/HCC)- Primary Unspecified essential hypertension Diabetic polyneuropathy associated with type 2 diabetes mellitus (CMS/HCC) Pulmonary emphysema, unspecified emphysema type (CMS/HCC) Critical limb ischemia of right lower extremity (CMS/[facility]) PAD (peripheral artery disease) ([facility]) Unspecified peripheral vascular disease Gastroesophageal reflux disease, unspecified whether esophagitis present Bilateral lower extremity edema Venous ulcer of right leg (CMS/[facility]) Type 2 diabetes mellitus with complication, with long-term current use of insulin (CMS/[facility]) Tobacco user Tobacco use disorder Encounter for smoking cessation counseling Kidney stone Calculus of kidney Adrenal mass 1 cm to 4 cm in diameter ([facility]) Radiculopathy, lumbar region Thoracic or lumbosacral neuritis or radiculitis, unspecified Non-seasonal allergic rhinitis, unspecified trigger Type 2 diabetes mellitus with unspecified complications (CMS/HCC) Anxiety and depression (CMS/HCC)- Primary Morbid (severe) obesity due to excess calories (CMS/[facility]) Body mass index (BMI) 50.0-59.9, adult (CMS/[facility]) Malignant neoplasm of cervix uteri, unspecified (CMS/[facility]) Diabetic polyneuropathy associated with type 2 diabetes mellitus (CMS/HCC) Chronic diastolic heart failure (CMS/HCC) Chronic diastolic heart failure Primary hypertension ([facility]) Unspecified essential hypertension 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 ([facility]) Gastroesophageal reflux disease, unspecified whether esophagitis present Bilateral lower extremity edema Type 2 diabetes mellitus with complication, with long-term current use of insulin ([facility]) Tobacco user Tobacco use disorder Mixed hyperlipidemia ([facility]) Mixed hyperlipidemia Gout, unspecified cause, unspecified chronicity, unspecified site Vitamin deficiency Unspecified vitamin deficiency Gastro-esophageal reflux disease without esophagitis Edema, unspecified Edema Hyperlipidemia, unspecified ([facility]) Encounter for smoking cessation counseling Venous ulcer of right leg ([facility]) Antibiotic-induced yeast infection documented in this encounter [facility] [...] History sepsis 2010 Hospitalization History [facility] Other Hospital course Narrative No data available for this section [facility] [address] progress note No data available for this section [facility] [address] [employer] reason for referral (narrative) , Referral to Dr. 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 Advance Directives and Living Will Power of Lighter Summary Purpose Family History No Family History Records FoundNo Family History Records FoundNo Family History Records FoundNo Family History Records Found No data available for this section No Family History Records FoundNo Family History Records Found Additional Source Comments INFORMATION SOURCE (unrecogn ized section and content) DATE CREATED AUTHOR 10/30/2019 [facility] DATE CREATED AUTHOR AUTHOR'S ORGANIZ ATION 09/15/2020 [facility] DATE CREATED AUTHOR AUTHOR'S ORGANIZ ATION 12/19/2022 [facility] DATE CREATED AUTHOR AUTHOR'S ORGANIZ ATION 06/03/2024 [facility] DATE CREATED AUTHOR AUTHOR'S ORGANIZ ATION 08/10/2024 [facility] DATE CREATED AUTHOR AUTHOR'S ORGANIZ ATION 08/29/2024 [facility] Care Team (unrecognized sect ion and content) Director Of Photography Relationship Specialty Start Date End Date Ty Amin MD PCP - General Family Medicine 01/05/23 Director Of Photography Relationship Specialty Start Date End Date Ty Amin MD PCP - General Family Medicine 01/05/23 Director Of Photography Relationship Specialty Start Date End Date Ty Amin MD [address] [place] [phone] PCP - General Family Medicine 09/20/23 Mckayla Blas NP [address] [place] [phone] PCP - [facility] 09/07/23 09/05/90 Mckayla Blas NP [address] [place] [phone] Nurse Practitioner Family Medicine 09/20/23 Director Of Photography Relationship Specialty Start Date End Date Ty Aimn MD [address] [place] [phone] PCP - General Family Medicine 09/20/23 Mckayla Blas NP [address] [place] [phone] PCP - [facility] 09/07/23 09/05/90 Mckayla Blas NP [address] [place] [phone] Nurse Practitioner Family Medicine 09/20/23 Director Of Photography Relationship Specialty Start Date End Date Ty Amin MD [address] [place] [phone] PCP - General Family Medicine 09/20/23 Mckayla Blas NP [address] [place] [phone] PCP - [facility] 09/07/23 09/05/90 Mckayla Blas NP [address] [place] [phone] Nurse Practitioner Family Medicine 09/20/23 Director Of Photography Relationship Specialty Start Date End Date Ty Amin MD [address] [place] [phone] PCP - General Family Medicine 09/20/23 Mckayla Blas NP [address] [place] [phone] PCP - [facility] 09/07/23 09/05/90 Mckayla Blas NP [address] [place] [phone] Nurse Practitioner Family Medicine 09/20/23 Director Of Photography Relationship Specialty Start Date End Date Ty Amin MD [address] [place] [phone] PCP - General Family Medicine 09/20/23 Mckayla Blas NP [address] [place] [phone] PCP - [facility] 09/07/23 09/05/90 Mckayla Blas NP [address] [place] [phone] Nurse Practitioner Family Medicine 09/20/23 Director Of Photography Relationship Specialty Start Date End Date Ty Amin MD [address] [place] [phone] PCP - General Family Medicine 09/20/23 Mckayla Blas NP [address] [place] [phone] [facility] 09/07/23 09/05/90 Mckayla Blas NP [address] [place] [phone] Nurse Practitioner Family Medicine 09/20/23 Director Of Photography Relationship Specialty Start Date End Date Ty Amin MD [address] [place] [phone] PCP - General Family Medicine 09/20/23 Mckayla Blas NP [address] [place] [phone] PCP - [facility] 09/07/23 09/05/90 Mckayla Blas NP [address] [place] [phone] Nurse Practitioner Family Medicine 09/20/23 Director Of Photography Relationship Specialty Start Date End Date Ty Amin MD [address] [place] [phone] PCP - General Family Medicine 09/20/23 Mckayla Blas NP [address] [place] [phone] PCP - [facility] 09/07/23 09/05/90 Mckayla Blas NP [address] [place] [phone] Nurse Practitioner Family Medicine 09/20/23 Director Of Photography Relationship Specialty Start Date End Date Ty Amin MD [address] [place] [phone] PCP - General Family Medicine 09/20/23 Mckayla Blas NP [address] [place] [phone] PCP - [facility] 09/07/23 09/05/90 Mckayla Blas NP [address] [place] [phone] Nurse Practitioner Family Medicine 09/20/23 Director Of Photography Relationship Specialty Start Date End Date Ty Amin MD [address] [place] [phone] PCP - General Family Medicine 09/20/23 Mckayla Blas NP [address] [place] [phone] PCP - [facility] 09/07/23 09/05/90 Mckayla Blas NP [address] [place] [phone] Nurse Practitioner Family Medicine 09/20/23 Director Of Photography Relationship Specialty Start Date End Date Ty Amin MD [address] [place] [phone] PCP - General Family Medicine 09/20/23 Mckayla Blas NP [address] [place] [phone] [facility] 09/07/23 09/05/90 Mckayla Blas NP [address] [place] [phone] Nurse Practitioner Family Medicine 09/20/23 Director Of Photography Relationship Specialty Start Date End Date Ty Amin MD [address] [place] [phone] PCP - General Family Medicine 09/20/23 Mckayla Blas NP [address] [place] [phone] PCP - [facility] 09/07/23 09/05/90 Mckayla Blas NP [address] [place] [address] Nurse Practitioner Family Medicine 09/20/23 REASON FOR VISIT (unrecogniz ed section and content) Reason Comments Med Refill Reason Comments Diabetes Follow-up FOR RECORDS PERTAINING TO PATIENTS WHO ARE [...] BE BASED ON THE PRIMARY CLINICAL RECORDS. [employer] provides no warranty or guarantee of the accuracy or completeness of information in this document.
[2024-10-08 10:18] LABS: Bilirubin Urine NEGATIVE (NEGATIVE); Blood Urine NEGATIVE (NEGATIVE); Clarity Urine CLEAR (CLEAR); Color Urine YELLOW (YELLOW); Glucose Urine UA NEGATIVE (NEGATIVE); Ketones Urine NEGATIVE (NEGATIVE); Leukocyte Esterase Urine NEGATIVE (NEGATIVE); Nitrite Urine NEGATIVE (NEGATIVE); Protein Urine 30 mg/dL (NEG/TRACE); Specific Gravity Urine >=1.030 (1.005-1.025); pH Urine 5.5 (5.0-9.0)
[2024-10-08 10:30] LABS: Urine Microscopic Indicated YES
[2024-10-08 10:43] LABS: Bacteria Urine TRACE #/HPF (NONE SEEN); Cast Seen? NONE SEEN #/LPF (NONE SEEN); Crystals Seen? None Seen #/HPF (None Seen); Mucus Urine NONE SEEN (NONE SEEN); RBC Urine 0-2 #/HPF (0-2); Squamous Epithelial Cell Urine MODERATE #/LPF (NONE/RARE); Urine Culture Indicated NO; WBC Urine 0-2 #/HPF (NONE SEEN)
[2024-10-08 11:01] LABS: Creatinine Urine Random 190.98 mg/dL (20.00-300.00); Microalbum Creatinine Ratio Ur 351.8 mg/g (0.0-29.9); Microalbumin Urine Random 67.2 mg/dL (<=30.0)
[2024-10-08 11:24] LABS: Alanine Aminotransferase 11 U/L (14-59); Albumin Globulin Ratio 0.7; Alkaline Phosphatase 68 U/L (46-116); Aspartate Amino Transferase 14 U/L (15-37); Bilirubin Direct 0.1 mg/dL (0.0-0.2); Bilirubin Total 0.4 mg/dL (0.2-1.0); Chol HDL Ratio 3.3; Cholesterol 118 mg/dL (<=200); Globulin 4.6 g/dL; HDL Cholesterol 36 mg/dL (40-60); Total Protein 7.6 g/dL (6.4-8.2); Triglycerides 127 mg/dL (<=150); Uric Acid 6.2 mg/dL (2.6-6.0); VLDL CHOLESTEROL 25.4 mg/dL
== END 2024-10-08 09:27 | disposition home or self-care (01) ==
LOC: LAB 09:29
PROVIDERS: PCP Nurse Practitioner; Visit Provider Nurse Practitioner
DX: G47.33 Obstructive sleep apnea (adult) (pediatric) (principal); J43.9 Emphysema, unspecified; J45.40 Moderate persistent asthma, uncomplicated; K21.9 Gastro-esophageal reflux disease without esophagitis; Z72.0 Tobacco use; I10 Essential (primary) hypertension; E11.8 Type 2 diabetes mellitus with unspecified complications; Z79.4 Long term (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; E78.2 Mixed hyperlipidemia; M10.9 Gout, unspecified; E56.9 Vitamin deficiency, unspecified; M48.062 Spinal stenosis, lumbar region with neurogenic claudication; M51.369 Other intervertebral disc degeneration, lumbar region without mention of lumbar back pain or lower extremity pain; M54.16 Radiculopathy, lumbar region; G89.4 Chronic pain syndrome; Z79.891 Long term (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 opiate analgesic; M16.9 Osteoarthritis of hip, unspecified; M25.551 Pain in right hip
CPT/HCPCS: 36415; 80048; 80061; 80076; 81001; 82043; 82306; 82570; 84550; G0463

== ENCOUNTER 2024-10-08 09:34 | Outpatient (OUT) | payer MEDICARE, OTHER, SELFPAY ==
--- OUTSIDE RECORDS SUMMARY | 2024-10-08 09:38 | XMS_ITS | CCD ---
Author Organization [facility] Care Team Providers Care Refinery Operator Name Role Phone James Benavidez Primary Care Provider [phone] JAMES BENAVIDEZ Primary Care Unavailable SHENDGE, VITHAL Admitting Unavailable SHENDGE, VITHAL Attending Unavailable AICHHOLZ, MCKAYLA Primary Care Unavailable AICHHOLZ, MCKAYLA Referring Unavailable AICHHOLZ, MCKAYLA J Primary Care Physician Tico, Stephanie Unavailable OLE RAMIREZ Attending Unavailable OLE RAMIREZ Consulting Unavailable AICHHOLZ, PROTECTION AGENT MCKAYLA Primary Care Unavailable OLE RAMIREZ Admitting Unavailable ANTONY SHRESTHA Consulting Unavailable ALONDRA ., UMBERTO Admitting Unavailable ALONDRA ., UMBERTO Attending Unavailable AICHHOLZ, PROTECTION AGENT MCKAYLA Primary Care Unavailable AFSANEH Loera, DR BOLANOS Consulting Unavailable MARYANNE POWER Consulting Unavailable GLENN KERR Consulting Unavailable YOMAIRA KERR Consulting Unavailable HATTIE GOFF Consulting Unavailable ALONDRA ., UMBERTO Consulting Unavailable TICO, STEPHANIE Attending Unavailable TICO, STEPHANIE Consulting Unavailable AICHHOLZ, PROTECTION AGENT MCKAYLA Primary Care Unavailable TICO, STEPHANIE Admitting Unavailable REGLA ., DR DUMONT Admitting Unavailable AICHHOLZ, PROTECTION AGENT MCKAYLA Primary Care Unavailable REGLA ., DR DUMONT Attending Unavailable ARAUZ ., DR DUMONT Consulting Unavailable COLLIN HUERTAS Consulting Unavailable CECILIA KAUFMAN Admitting Unavailable CECILIA KAUFMAN Attending Unavailable AICHHOLZ, PROTECTION AGENT MCKAYLA Primary Care Unavailable RAFAEL GONGORA Attending Unavailable RAFAEL GONGORA Admitting Unavailable AICHHOLZ, PROTECTION AGENT MCKAYLA Primary Care Unavailable AICHHOLZ, PROTECTION AGENT MCKAYLA Admitting Unavailable AICHHOLZ, PROTECTION AGENT MCKAYLA Primary Care Unavailable AICHHOLZ, PROTECTION AGENT MCKAYLA Attending Unavailable AICHHOLZ, PROTECTION AGENT MCKAYLA Consulting Unavailable LAKSHMIPATHY ., NARENDRANATH Attending Anette vailable LAKSHMIPATHY ., NARENDRANATH Consulting Anette vailable LAKSHMIPATHY ., NARENDRANATH Admitting Anette vailable AICHHOLZ, PROTECTION AGENT MCKAYLA Primary Care Unavailable VALENZUELA ., GIL Consulting Unavailable MORTENSEN ., DR CHAPARRO Aguillon Attending Unavailable MORTENSEN ., DR CHAPARRO Aguillon Admitting Unavailable AICHHOLZ, PROTECTION AGENT MCKAYLA Primary Care Unavailable VALENZUELA ., GIL Consulting Unavailable MORTENSEN ., DR CHAPARRO Aguillon Admitting Unavailable AICHHOLZ, PROTECTION AGENT MCKAYLA Primary Care Unavailable MORTENSEN ., DR CHAPARRO Agiullon Attending Unavailable HALKER ., SUBHASH Consulting Unavailable LAKSHMIPATHY ., NARENDRANATH Admitting Anette vailable LAKSHMIPATHY ., NARENDRANATH Attending Anette vailable AICHHOLZ, PROTECTION AGENT MCKAYLA Primary Care Unavailable MORTENSEN ., DR CHAPARRO Aguillon Attending Unavailable MORTENSEN ., DR CHAPARRO Aguillon Admitting Unavailable VALENZUELA ., GIL Consulting Unavailable AICHHOLZ, PROTECTION AGENT MCKAYLA Primary Care Unavailable VALENZUELA ., GIL Consulting Unavailable MORTENSEN ., DR CHAPARRO Aguillon Attending Unavailable MORTENSEN ., DR CHAPARRO Aguillon Admitting Unavailable AICHHOLZ, PROTECTION AGENT MCKAYLA Primary Care Unavailable HATTIE BRODERICK Attending Unavailable HATTIE BRODERICK Admitting Unavailable AICHHOLZ, PROTECTION AGENT MCKAYLA Primary Care Unavailable AICHHOLZ, PROTECTION AGENT MCKAYLA Admitting Unavailable AICHHOLZ, PROTECTION AGENT MCKAYLA Consulting Unavailable AICHHOLZ, PROTECTION AGENT MCKAYLA Primary Care Unavailable AICHHOLZ, PROTECTION AGENT MCKAYLA Attending Unavailable AICHHOLZ, PROTECTION AGENT MCKAYLA Primary Care Unavailable MISC, DR LESLIE Admitting Unavailable MISC, DR LESLIE Attending Unavailable MISC, DR LESLIE Consulting Unavailable DIAB ., MARIANO Admitting Unavailable DIAB ., MARIANO Attending Unavailable DIAB ., MARIANO Consulting Unavailable AICHHOLZ, PROTECTION AGENT MCKAYLA Primary Care Unavailable RASTEGAR, RICCO Consulting Unavailable AICHHOLZ, PROTECTION AGENT MCKAYLA Admitting Unavailable AICHHOLZ, PROTECTION AGENT MCKAYLA Primary Care Unavailable AICHHOLZ, PROTECTION AGENT MCKAYLA Attending Unavailable AICHHOLZ, PROTECTION AGENT MCKAYLA Consulting Unavailable DR PATRICIA VELOZ Consulting Unavailable TAMLYN ., CECILIA Attending Unavailable TAMLYN ., CECILIA Admitting Unavailable DR PATRICIA VELOZ Consulting Unavailable AICHHOLZ, PROTECTION AGENT MCKAYLA Primary Care Unavailable TAMLYN ., CECILIA Consulting Unavailable MORTENSEN ., DR CHAPARRO Aguillon Attending Unavailable FESTUS ., DR CHAPARRO Aguillon Consulting Unavailable FESTUS ., DR CHAPARRO Aguillon Admitting Unavailable AICHHOLZ, PROTECTION AGENT MCKAYLA Primary Care Unavailable HATTIE BRODERICK Attending Unavailable HATTIE BRODERICK Consulting Unavailable HATTIE BRODERICK Admitting Unavailable AICHHOLZ, PROTECTION AGENT MCKAYLA Primary Care Unavailable HATTIE BAUTISTA Unavailable AICHHOLZ, SAYDA MCKAYLA Admitting Unavailable AICHHOLZ, PROTECTION AGENT MCKAYLA Attending Unavailable AICHHOLZ, PROTECTION AGENT MCKAYLA Consulting Unavailable AICHHOLZ, PROTECTION AGENT MCKAYLA Primary Care Unavailable Brennan PHIPPS, Ty Primary Care Provider Brennan PHIPPS, Ty Primary Care Provider Aichholz SMALL [employer]ODUCTS II ASSEMBLER, Mckayla Unavailable Aichholz SMALL PRODUCTS [employer] ASSEMBLER, Mckayla Unavailable Elbert ARAUZ Attending Unavailable SARAH [...] Medication Allergies] Propensity to adverse reactions (disorder) [facility] Repository Medications Current Medications Medication [...] Start Date: 02/06/22 Status: Ordered HYDROcodone-acet aminophen ([place]) 5-325 MG tablet 1 tablet 3 (three) times a day as needed for severe pain. Active take 1 tablet by vandana twice daily as needed [place] 5-325 MG 1 tablet as needed Orally [...] complication, with long-term current use of insulin ([facility]) Chew 1 tablet (81 mg) Daily [...] every week ergocalciferol (Vitamin D2) 1.25 MG (33500 UT) capsule Indications: Vitamin D deficiency, unspecified [...] 02-06-2022 Chronic Other aftercare (1 source) Other long goods drier (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 therapy; Translations: [OTH ALF CURRENT DRUG THERAPY] Onset: 12-05-2022 Episodic Other aftercare (1 source) skilled nursing (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; Translations: [ALF CURRENT USE OF ASPIRIN] Onset: 12-05-2022 Episodic Other aftercare (3 sources) 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 Unclassified (1 source) ALF INJECT NONINSULN ANTIDIAB; Translations: [BOTTOM PRECIPITATOR OPERATOR INJECT NONINSULN ANTIDIAB] Onset: 12-05-2022 Unclassified [...] AUTO DIFFon BASOPHILS ABSOLUTE AUTO 0.1 [facility] Basophils/100 WBC (Bld) 0.5 % 0.2 - 2.0 % [facility] Eosinophils/100 WBC (Bld) 1.9 % 0.9 - 7.0 % [facility] Erythrocyte distribution width (RBC) [Ratio] 14.6 % 11.0 - 15.0 % [facility] Hematocrit (Bld) [Volume fraction] 50.9 % High 36.0 - 48.0 % [facility] Hemoglobin (Bld) [Mass/Vol] 16.1 g/dL High 12.0 - 16.0 g/dL [facility] IMMATURE GRANULOCYTES ABS AUTO 0.04 High [facility] Immature granulocytes/100 WBC (Bld) 0.3 % 0.0 - 0.5 % [facility] Interpretation and review of laboratory results Abnormal [facility] LYMPHOCYTES ABSOLUTE AUTO 3.2 [facility] Lymphocytes/100 WBC (Bld) 25.1 % 20.5 - 60.0 % [facility] MCH (RBC) [Entitic mass] 29.2 pg 26.7 - 34.0 pg [facility] MCHC (RBC) [Mass/Vol] 31.6 g/dL 29.9 - 35.2 g/dL [facility] MCV (RBC) [Entitic vol] 92.2 fL 81.0 - 99.0 fL [facility] MONOCYTES ABSOLUTE AUTO 0.7 [facility] Monocytes/100 WBC (Bld) 5.2 % 1.7 - 12.0 % [facility] NEUTROPHILS ABSOLUTE AUTO 8.6 High [facility] Neutrophils/100 WBC (Bld) 67 % 43.0 - 75.0 % [facility] Platelet mean volume (Bld) [Entitic vol] 12.8 fL 9.5 - 13.5 fL [facility] EO # 0.2 [facility] PLT 122 Low [facility] RBC 5.52 High [facility] WBC 12.8 High [facility] Healthcare Office Visiton 08-08-2024 Follow-up visit [id number] Mitzi Macias 1970 Date Provider Department Center 08/08/2024 [id number] RIGGS MARIO Rojas Family History Problem Relation Age of Onset Heart attack Paternal Grandmother Family Status - Relation Status Age at Paternal Grandmother Level of Service:90714 CO OFFICE/OUTPATIENT ESTABLISHED MOD MDM 30 MIN Reason for Visit and Comments: Congestive Heart Failure [127] - Denies chest pain, SOB, and palpitations. Hypertension [371949] Hyperlipidemia [182] LVH [Other] Edema [[id number]] - Denies worsening edema. She sees wound care for RLE ulcer. She was seeing the vein specialists here in town but they are moving to [place] in a few weeks. Normal [facility] Glucose (Bld) [Mass/Vol]Orde red By: Mica Sauceda on 05-27-2024 Glucose Blood, POC 158 mg/dL [facility] Laboratory - Hematology and Cell countson 05-27-2024 HbA1c (Bld) [Mass fraction] 9.2 % [facility] No Panel InformationOrdered By: Mica Sauceda on 05-27-2024 [facility] CREATININEon 05-12-2024 Creatinine [Mass/Vol] 0.92 mg/dL 0.55 - 1.02 mg/dL [facility] GFR/1.73 sq M.predicted CKD-EPI (S/P/Bld) [Vol rate/Area] >60 >=60 mL/min/1.73m 2 [facility] EGFR-NON AF GERMAN >60 >=60 mL/min/1.73m 2 [facility] Office Visiton 11-14-2023 Follow-up visit [id number] Mitzi Macias 1970 Date Provider Department Center 11/14/2023 BHARAT NICOLE MARIO Rojas Family History Problem Relation Age of Onset Heart attack Paternal Grandmother Family Status - Relation Status Age at Paternal Grandmother Level of Service:64781 CO OFFICE/OUTPATIENT NEW LOW MDM 30 MINUTES Normal [facility] CBC AUTO DIFFon 12-06-2022 BASO # 0.0 103/ul Normal 0.0-0.1 [facility] Comment on above: Performed By: #### C BC #### [facility] [address] [address] [address] Ashlie Hills Basophils/100 WBC (Bld) 0.1 % Critically low 0.2-2.0 [facility] Comment on above: Performed By: #### C BC #### [facility] [address] [address] [address] Ashlie Hills EO # 0.0 103/ul Normal 0.0-0.7 [facility] Comment on above: Performed By: #### C BC #### [facility] [address] [address] [address] Ashlie Hills Eosinophils/100 WBC (Bld) 0.0 % Critically low 0.9-7.0 [facility] Comment on above: Performed By: #### C BC #### [facility] [address] [address] [address] Ashlie Hills Erythrocyte distribution width (RBC) [Ratio] 14.9 % Normal 11.0-15.0 [facility] Comment on above: Performed By: #### C BC #### [facility] [address] [address] [address] Ashlie Hills Hematocrit (Bld) [Volume fraction] 46.2 % Normal 36.0-48.0 [facility] Comment on above: Performed By: #### C BC #### [facility] [address] [address] [address] Ashlie Hills Hemoglobin (Bld) [Mass/Vol] 14.7 g/dL Normal 12.0-16.0 [facility] Comment on above: Performed By: #### C BC #### [facility] [address] [address] [address] Ashlie Hills IG # 0.06 10e3/ul Critically high 0.00-0.03 [facility] Comment on above: Performed By: #### C BC #### [facility] [address] [place] [address] Dr. Ashlie Hills IG % 0.4 % Normal 0.0-0.5 [facility] Comment on above: Performed By: #### C BC #### [facility] [address] [place] [address] Dr. Ashlie Hills LYMPH # 1.3 103/ul Normal 1.2-3.8 [facility] Comment on above: Performed By: #### C BC #### [facility] [address] [place] [address] Dr. Ashlie Hills Lymphocytes/100 WBC (Bld) 9.4 % Critically low 20.5-60.0 [facility] Comment on above: Performed By: #### C BC #### [facility] [address] [place] [address] Dr. Ashlie Hills MANUAL DIFF REQ NO Normal [facility] Comment on above: Performed By: #### C BC #### [facility] [address] [place] [address] Dr. Ashlie Hills MCH (RBC) [Entitic mass] 28.4 pg Normal 26.7-34.0 [facility] Comment on above: Performed By: #### C BC #### [facility] [address] [place] [address] Dr. Ashlie Hills MCHC (RBC) [Mass/Vol] 31.8 g/dL Normal 29.9-35.2 [facility] Comment on above: Performed By: #### C BC #### [facility] [address] [place] [address] Dr. Ashlie Hills MCV (RBC) [Entitic vol] 89.4 fL Normal 81.0-99.0 [facility] Comment on above: Performed By: #### C BC #### [facility] [address] [place] [address] Dr. Ashlie Hills MONO # 0.5 103/ul Normal 0.3-0.8 [facility] Comment on above: Performed By: #### C BC #### [facility] [address] [address] [address] Ashlie Hills Monocytes/100 WBC (Bld) 3.4 % Normal 1.7-12.0 [facility] Comment on above: Performed By: #### C BC #### [facility] [address] [address] [address] Ashlie Hills NEUT # 11.8 103/ul Critically high 1.4-6.5 [facility] Comment on above: Performed By: #### C BC #### [facility] [address] [place] [address] Dr. Ashlie Hills Neutrophils/100 WBC (Bld) 86.7 % Critically high 43.0-75.0 [facility] Comment on above: Performed By: #### C BC #### [facility] [address] [place] [address] Dr. Ashlie Hills Platelet mean volume (Bld) [Entitic vol] 12.6 fL Normal 9.5-13.5 [facility] Comment on above: Performed By: #### C BC #### [facility] [address] [place] [address] Dr. Ashlie Hills PLT 133 103/ul Critically low 150-450 [facility] Comment on above: Performed By: #### C BC #### [facility] [address] [place] [address] Dr. Ashlie Hills RBC 5.17 106/ul Normal 4.20-5.40 [facility] Comment on above: Performed By: #### C BC #### [facility] [address] [place] [address] Dr. Ashlie Hills WBC 13.6 103/ul Critically high 4.0-11.0 [facility] Comment on above: Performed By: #### C BC #### [facility] [address] [place] [address] Dr. Ashlie Hills MAGNESIUMon 12-06-2022 Magnesium [Mass/Vol] 2.2 mg/dL Normal 1.8-2.4 [facility] Comment on above: Performed By: #### I NFLUAB #### [facility] [address] [address] [address] Ashlie Hills POINT OF CARE GLUCOSEon 11-08 Glucose [Mass/Vol] 340 mg/dL Critically high -106 [facility] Comment on above: Performed By: #### P OCGLUC #### [facility] [address] [place] [address] Dr. Ashlie Hills Glucose [Mass/Vol] 276 mg/dL Critically high -106 [facility] Comment on above: Performed By: #### C BC #### [facility] [address] [place] [address] Dr. Ashlie Hills Glucose [Mass/Vol] 333 mg/dL Critically high [address] [place] [address] Comment on above: Performed By: #### C BC #### [facility] [address] [place] [address] Dr. Ashlie Hills PROF CHEM 8 (BAS METB)on Anion gap [Moles/Vol] 10.9 mmol/L Normal [facility] Comment on above: Performed By: #### I NFLUAB #### [facility] [address] [address] [address] Ashlie Hills Calcium [Mass/Vol] 9.3 mg/dL Normal 8.5-10.1 [facility] Comment on above: Performed By: #### I NFLUAB #### [facility] [address] [place] [address] Dr. Ashlie Hills Chloride [Moles/Vol] 103 mmol/L Normal 98-107 [facility] Comment on above: Performed By: #### I NFLUAB #### [facility] [address] [address] [address] Ashlie Hills CO2 [Moles/Vol] 31.2 mmol/L Normal 21.0-32.0 [facility] Comment on above: Performed By: #### I NFLUAB #### [facility] [address] [place] [address] Dr. Ashlie Hills Creatinine [Mass/Vol] 0.96 mg/dL Normal 0.55-1.02 [facility] Comment on above: Performed By: #### I NFLUAB #### [facility] [address] [address] [address] Ashlie Hills EGFR-AF GERMAN >60 Normal >=60 [facility] Comment on above: Performed By: #### I NFLUAB #### [facility] [address] [address] [address] Ashlie Hills EGFR-NON AF GERMAN >60 Normal >=60 [facility] Comment on above: Performed By: #### I NFLUAB #### [facility] [address] [address] [address] Ashlie Hills Glucose [Mass/Vol] 288 mg/dL Critically high 74-106 [facility] Comment on above: Performed By: #### I NFLUAB #### [facility] [address] [address] [address] Ashlie Hills Potassium [Moles/Vol] 5.1 mmol/L Normal 3.5-5.1 [facility] Comment on above: Performed By: #### I NFLUAB #### [facility] [address] [address] [address] Ashlie Hills Sodium [Moles/Vol] 140 mmol/L Normal 136-145 [facility] Comment on above: Performed By: #### I NFLUAB #### [facility] [address] [address] [address] Ashlie Hills Urea nitrogen [Mass/Vol] 30.0 mg/dL Critically high 7.0-18.0 [facility] Comment on above: Performed By: #### I NFLUAB #### [facility] [address] [address] [address] Ashlie Hills Urea nitrogen/Creatinine [Mass ratio] 31.2 mg/mg Normal [facility] Comment on above: Performed By: #### I NFLUAB #### [facility] [address] [address] [address] Ashlie Hills CBC AUTO DIFFon 12-05-2022 BASO # 0.0 103/ul Normal 0.0-0.1 [facility] Comment on above: Performed By: #### C BC #### [facility] [address] [address] [address] Ashlie Hills Basophils/100 WBC (Bld) 0.4 % Normal 0.2-2.0 [facility] Comment on above: Performed By: #### C BC #### [facility] [address] [place] [address] Dr. Ashlie Hills EO # 0.0 103/ul Normal 0.0-0.7 [facility] Comment on above: Performed By: #### C BC #### [facility] [address] [place] [address] Dr. Ashlie Hills Eosinophils/100 WBC (Bld) 0.0 % Critically low 0.9-7.0 [facility] Comment on above: Performed By: #### C BC #### [facility] [address] [place] [address] Dr. Ashlie Hills Erythrocyte distribution width (RBC) [Ratio] 14.8 % Normal 11.0-15.0 [facility] Comment on above: Performed By: #### C BC #### [facility] [address] [place] [address] Dr. Ashlie Hills Hematocrit (Bld) [Volume fraction] 49.9 % Critically high 36.0-48.0 [facility] Comment on above: Performed By: #### C BC #### [facility] [address] [place] [address] Dr. Ashlie Hills Hemoglobin (Bld) [Mass/Vol] 15.7 g/dL Normal 12.0-16.0 [facility] Comment on above: Performed By: #### C BC #### [facility] [address] [place] [address] Dr. Ashlie Hills IG # 0.04 10e3/ul Critically high 0.00-0.03 [facility] Comment on above: Performed By: #### C BC #### [facility] [address] [place] [address] Dr. Ashlie Hills IG % 0.5 % Normal 0.0-0.5 [facility] Comment on above: Performed By: #### C BC #### [facility] [address] [address] [address] Ashlie Hills LYMPH # 1.1 103/ul Critically low 1.2-3.8 [facility] Comment on above: Performed By: #### C BC #### [facility] [address] [address] [address] Ashlie Hills Lymphocytes/100 WBC (Bld) 12.7 % Critically low 20.5-60.0 [facility] Comment on above: Performed By: #### C BC #### [facility] [address] [place] [address] Dr. Ashlie Hills MANUAL DIFF REQ NO Normal [facility] Comment on above: Performed By: #### C BC #### [facility] [address] [place] [address] Dr. Ashlie Hills MCH (RBC) [Entitic mass] 28.1 pg Normal 26.7-34.0 [facility] Comment on above: Performed By: #### C BC #### [facility] [address] [place] [address] Dr. Ashlie Hills MCHC (RBC) [Mass/Vol] 31.5 g/dL Normal 29.9-35.2 [facility] Comment on above: Performed By: #### C BC #### [facility] [address] [place] [address] Dr. Ashlie Hills MCV (RBC) [Entitic vol] 89.3 fL Normal 81.0-99.0 [facility] Comment on above: Performed By: #### C BC #### [facility] [address] [address] [address] Ashlie Hills MONO # 0.1 103/ul Critically low 0.3-0.8 [facility] Comment on above: Performed By: #### C BC #### [facility] [address] [place] [address] Dr. Ashlie Hills Monocytes/100 WBC (Bld) 1.3 % Critically low 1.7-12.0 [facility] Comment on above: Performed By: #### C BC #### [facility] [address] [address] [address] Ashlie Hills NEUT # 7.2 103/ul Critically high 1.4-6.5 [facility] Comment on above: Performed By: #### C BC #### [facility] [address] [address] [address] Ashlie Hills Neutrophils/100 WBC (Bld) 85.1 % Critically high 43.0-75.0 [facility] Comment on above: Performed By: #### C BC #### [facility] [address] [address] [address] Ashlie Hills Platelet mean volume (Bld) [Entitic vol] 12.2 fL Normal 9.5-13.5 [facility] Comment on above: Performed By: #### C BC #### [facility] [address] [address] [address] Ashlie Hills PLT 116 103/ul Critically low 150-450 [facility] Comment on above: Performed By: #### C BC #### [facility] [address] [address] [address] Ashlie Hills RBC 5.59 106/ul Critically high 4.20-5.40 [facility] Comment on above: Performed By: #### C BC #### [facility] [address] [address] [address] Ashlie Hills WBC 8.5 103/ul Normal 4.0-11.0 [facility] Comment on above: Performed By: #### C BC #### [facility] [address] [place] [address] Dr. Ashlie Hills CTA CHEST WO W [...] by: HATTIE GOFF Date: 2022-12-05 01:52 Normal [facility] MAGNESIUMon 12-05-2022 Magnesium [Mass/Vol] 2.1 mg/dL Normal 1.8-2.4 [facility] Comment on above: Performed By: #### P OCGLUC #### [facility] [address] [address] [address] Ashlie Hills POINT OF CARE GLUCOSEon 11-08 Glucose [Mass/Vol] 293 mg/dL Critically high -106 [facility] Comment on above: Performed By: #### P OCGLUC #### [facility] [address] [address] [address] Ashlie Hills Glucose [Mass/Vol] 269 mg/dL Critically high -106 [facility] Comment on above: Performed By: #### P OCGLUC #### [facility] [address] [address] [address] Ashlie Hills Glucose [Mass/Vol] 223 mg/dL Critically high -106 [facility] Comment on above: Performed By: #### C VDAGS #### [facility] [address] [address] [address] Ashlie Hills PROF CHEM 8 (BAS METB)on Anion gap [Moles/Vol] 11.6 mmol/L Normal [facility] Comment on above: Performed By: #### P OCGLUC #### [facility] [address] [address] [address] Ashlie Hills Calcium [Mass/Vol] 9.2 mg/dL Normal 8.5-10.1 [facility] Comment on above: Performed By: #### P OCGLUC #### [facility] [address] [address] [address] Ashlie Hills Chloride [Moles/Vol] 102 mmol/L Normal 98-107 [facility] Comment on above: Performed By: #### P OCGLUC #### [facility] [address] [address] [address] Ashlie Hills CO2 [Moles/Vol] 28.7 mmol/L Normal 21.0-32.0 [facility] Comment on above: Performed By: #### P OCGLUC #### [facility] [address] [address] [address] Ashlie Hills Creatinine [Mass/Vol] 1.04 mg/dL Critically high 0.55-1.02 [facility] Comment on above: Performed By: #### P OCGLUC #### [facility] [address] [address] [address] Ashlie Hills EGFR-AF GERMAN >60 Normal >=60 [facility] Comment on above: Performed By: #### P OCGLUC #### [facility] [address] [address] [address] Ashlie Hills EGFR-NON AF GERMAN 56 mL/min/1.73m2 Critically low >=60 [facility] Comment on above: Performed By: #### P OCGLUC #### [facility] [address] [address] [address] Ashlie Hills Glucose [Mass/Vol] 231 mg/dL Critically high 74-106 [facility] Comment on above: Performed By: #### P OCGLUC #### [facility] [address] [address] [address] Ashlie Hills Potassium [Moles/Vol] 4.3 mmol/L Normal 3.5-5.1 [facility] Comment on above: Performed By: #### P OCGLUC #### [facility] [address] [address] [address] Ashlie Hills Sodium [Moles/Vol] 138 mmol/L Normal 136-145 [facility] Comment on above: Performed By: #### P OCGLUC #### [facility] [address] [address] [address] Ashlie Hills Urea nitrogen [Mass/Vol] 17.0 mg/dL Normal 7.0-18.0 [facility] Comment on above: Performed By: #### P OCGLUC #### [facility] [address] [place] [address] Dr. Ashlie Hills Urea nitrogen/Creatinine [Mass ratio] 16.3 mg/mg Normal [facility] Comment on above: Performed By: #### P OCGLUC #### [facility] [address] [address] [address] Ashlie Hills RESPIRATORY PANEL PLUSon Adenovirus Not detected Normal NOT DETECTED [facility] Comment on above: Performed By: #### C VDAGS #### [facility] [address] [place] [address] Dr. Ashlie Shaffer. Parapertusis Not detected Normal NOT DETECTED [facility] Comment on above: Performed By: #### C VDAGS #### [facility] [address] [address] [address] Ashlie Shaffer. Pertussis Not detected Normal NOT DETECTED [facility] Comment on above: Performed By: #### C VDAGS #### [facility] [address] [address] [address] Ashlie Hills Chlamydia Pneumoniae Not detected Normal NOT DETECTED [facility] Comment on above: Performed By: #### C VDAGS #### [facility] [address] [place] [address] Dr. Ashlie Hills Coronavirus 229E Not detected Normal NOT DETECTED [facility] Comment on above: Performed By: #### C VDAGS #### [facility] [address] [address] [address] Ashlie Hills Coronavirus HKU1 Not detected Normal NOT DETECTED [facility] Comment on above: Performed By: #### C VDAGS #### [facility] [address] [place] [address] Dr. Ashlie Hills Coronavirus NL63 Not detected Normal NOT DETECTED [facility] Comment on above: Performed By: #### C VDAGS #### [facility] [address] [place] [address] Dr. Ashlie Hills Coronavirus OC43 Not detected Normal NOT DETECTED [facility] Comment on above: Performed By: #### C VDAGS #### [facility] [address] [place] [address] Dr. Ashlie Hills Influenza A H1 Not detected Normal NOT DETECTED [facility] Comment on above: Performed By: #### C VDAGS #### [facility] [address] [place] [address] Dr. Ashlie Hills Influenza A H1 2009 Not detected Normal NOT DETECTED [facility] Comment on above: Performed By: #### C VDAGS #### [facility] [address] [place] [address] Dr. Ashlie Hills Influenza A H3 Not detected Normal NOT DETECTED [facility] Comment on above: Performed By: #### C VDAGS #### [facility] [address] [place] [address] Dr. Ashlie Hills Influenza B Not detected Normal NOT DETECTED [facility] Comment on above: Performed By: #### C VDAGS #### [facility] [address] [place] [address] Dr. Ashlie Hills Metapneumovirus Not detected Normal NOT DETECTED [facility] Comment on above: Performed By: #### C VDAGS #### [facility] [address] [place] [address] Dr. Ashlie Hills Mycoplas. Pneumoniae Not detected Normal NOT DETECTED [facility] Comment on above: Performed By: #### C VDAGS #### [facility] [address] [place] [address] Dr. Ashlie Hills Parainfluenza 1 Not detected Normal NOT DETECTED [facility] Comment on above: Performed By: #### C VDAGS #### [facility] [address] [place] [address] Dr. Ashlie Hills Parainfluenza 2 Not detected Normal NOT DETECTED [facility] Comment on above: Performed By: #### C VDAGS #### [facility] [address] [place] [address] Dr. Ashlie Hills Parainfluenza 3 Detected Abnormal NOT DETECTED [facility] Comment on above: Performed By: #### C VDAGS #### [facility] [address] [place] [address] Dr. Ashlie Hills Parainfluenza 4 Not detected Normal NOT DETECTED [facility] Comment on above: Performed By: #### C VDAGS #### [facility] [address] [place] [address] Dr. Ashlie Hills Rhino/Enterovirus Not detected Normal NOT DETECTED [facility] Comment on above: Performed By: #### C VDAGS #### [facility] [address] [place] [address] Dr. Ashlie Hills RP2 Header 1 RESPIRATORY PANEL: VIRUSES Normal [facility] Comment on above: Performed By: #### C VDAGS #### [facility] [address] [place] [address] Dr. Ashlie Hills RP2 Header 2 RESPIRATORY PANEL: BACTERIA Normal [facility] Comment on above: Performed By: #### C VDAGS #### [facility] [address] [place] [address] Dr. Ashlie Hills RSV Not detected Normal NOT DETECTED [facility] Comment on above: Performed By: #### C VDAGS #### [facility] [address] [place] [address] Dr. Ashlie Hills SARS-CoV-2 (COVID-19) RNA MADDY+probe Ql (Unsp spec) Not detected Normal NOT DETECTED [facility] Comment on above: Performed By: #### C VDAGS #### [facility] [address] [place] [address] Dr. Ashlie Hills XR CHEST 1 Von [...] MARYANNE POWER Date: 2022-12-04 22:23 Normal [facility] BLOOD GASES BTYon 12-04-2022 02 MODE ROOM AIR Normal [facility] Comment on above: Performed By: #### C BC #### [facility] [address] [place] [address] Dr. Ashlie Hills ALLENS TEST Positive Normal [facility] Comment on above: Performed By: #### C BC #### [facility] [address] [place] [address] Dr. Ashlie Hills Base excess Calc (Bld) [Moles/Vol] 5.4 mmol/L Critically high -2.0-2.0 [facility] Comment on above: Performed By: #### C BC #### [facility] [address] [place] [address] Dr. Ashlie Hills BIPAP PRESSURE Normal [facility] Comment on above: Performed By: #### C BC #### [facility] [address] [place] [address] Dr. Ashlie Hills CPAP [facility] Comment on above: Performed By: #### C BC #### [facility] [address] [place] [address] Dr. Ashlie Hills FIO2 Normal [facility] Comment on above: Performed By: #### C BC #### [facility] [address] [place] [address] Dr. Ashlie Hills HCO3 (Bld) [Moles/Vol] 30.8 mmol/L Critically high 22.0-26 .0 [facility] Comment on above: Performed By: #### C BC #### [facility] [address] [place] [address] Dr. Ashlie Hills LPM Normal [facility] Comment on above: Performed By: #### C BC #### [facility] [address] [place] [address] Dr. Ashlie Hills MINUTE VOLUME Normal [facility] Comment on above: Performed By: #### C BC #### [facility] [address] [place] [address] Dr. Ashlie Hills Oxygen (Bld) [Partial pressure] 46.3 mm[Hg] Critically low 80.0-100.0 [facility] Comment on above: Performed By: #### C BC #### [facility] [address] [place] [address] Dr. Ashlie Hills Oxygen saturation in Blood 83.9 % Critically low 95.0-100.0 [facility] Comment on above: Performed By: #### C BC #### [facility] [address] [place] [address] Dr. Ashlie Hills PCO2 54.2 mmHg Critically high 35.0-45.0 [facility] Comment on above: Performed By: #### C BC #### [facility] [address] [place] [address] Dr. Ashlie Hills PEEP [facility] Comment on above: Performed By: #### C BC #### [facility] [address] [place] [address] Dr. Ashlie Hills pH (Bld) 7.363 [pH] Normal 7.350-7.450 [facility] Comment on above: Performed By: #### C BC #### [facility] [address] [place] [address] Dr. Ashlie Hills PIP [facility] Comment on above: Performed By: #### C BC #### [facility] [address] [place] [address] Dr. Ashlie Hills PS [facility] Comment on above: Performed By: #### C BC #### [facility] [address] [place] [address] Dr. Ashlie Hills PUNCTURE SITE LR [facility] Comment on above: Performed By: #### C BC #### [facility] [address] [place] [address] Dr. Ashlie Hills RATE [facility] Comment on above: Performed By: #### C BC #### [facility] [address] [place] [address] Dr. Ashlie Hills VENT MODE [facility] Comment on above: Performed By: #### C BC #### [facility] [address] [place] [address] Dr. Ashlie Hills [facility] Comment on above: Performed By: #### C BC #### [facility] [address] [place] [address] Dr. Ashlie Hills BNPon 12-04-2022 Natriuretic peptide B (Bld) [Mass/Vol] 76.0 pg/mL Normal <=900.0 [facility] Comment on above: Performed By: #### P OCGLUC #### [facility] [address] [place] [address] Dr. Ashlie Hills CBC AUTO DIFFon 12-04-2022 BASO # 0.1 103/ul Normal 0.0-0.1 [facility] Comment on above: Performed By: #### C BC #### [facility] [address] [place] [address] Dr. Ashlie Hills Basophils/100 WBC (Bld) 0.6 % Normal 0.2-2.0 [facility] Comment on above: Performed By: #### C BC #### [facility] [address] [place] [address] Dr. Ashlie Hills EO # 0.2 103/ul Normal 0.0-0.7 [facility] Comment on above: Performed By: #### C BC #### [facility] [address] [place] [address] Dr. Ashlie Hills Eosinophils/100 WBC (Bld) 1.9 % Normal 0.9-7.0 [facility] Comment on above: Performed By: #### C BC #### [facility] [address] [place] [address] Dr. Ashlie Hills Erythrocyte distribution width (RBC) [Ratio] 15.0 % Normal 11.0-15.0 [facility] Comment on above: Performed By: #### C BC #### [facility] [address] [place] [address] Dr. Ashlie Hills Hematocrit (Bld) [Volume fraction] 49.1 % Critically high 36.0-48.0 [facility] Comment on above: Performed By: #### C BC #### [facility] [address] [place] [address] Dr. Ashlie Hills Hemoglobin (Bld) [Mass/Vol] 15.6 g/dL Normal 12.0-16.0 [facility] Comment on above: Performed By: #### C BC #### [facility] [address] [place] [address] Dr. Ashlie Hills IG # 0.02 10e3/ul Normal 0.00-0.03 [facility] Comment on above: Performed By: #### C BC #### [facility] [address] [place] [address] Dr. Ashlie Hills IG % 0.2 % Normal 0.0-0.5 [facility] Comment on above: Performed By: #### C BC #### [facility] [address] [place] [address] Dr. Ashlie Hills LYMPH # 2.8 103/ul Normal 1.2-3.8 [facility] Comment on above: Performed By: #### C BC #### [facility] [address] [place] [address] Dr. Ashlie Hills Lymphocytes/100 WBC (Bld) 29.9 % Normal 20.5-60.0 [facility] Comment on above: Performed By: #### C BC #### [facility] [address] [place] [address] Dr. Ashlie Hills MANUAL DIFF REQ NO Normal [facility] Comment on above: Performed By: #### C BC #### [facility] [address] [place] [address] Dr. Ashlie Hills MCH (RBC) [Entitic mass] 28.5 pg Normal 26.7-34.0 [facility] Comment on above: Performed By: #### C BC #### [facility] [address] [place] [address] Dr. Ashlie Hills MCHC (RBC) [Mass/Vol] 31.8 g/dL Normal 29.9-35.2 [facility] Comment on above: Performed By: #### C BC #### [facility] [address] [place] [address] Dr. Ashlie Hills MCV (RBC) [Entitic vol] 89.8 fL Normal 81.0-99.0 [facility] Comment on above: Performed By: #### C BC #### [facility] [address] [place] [address] Dr. Ashlie Hills MONO # 1.0 103/ul Critically high 0.3-0.8 [facility] Comment on above: Performed By: #### C BC #### [facility] [address] [place] [address] Dr. Ashlie Hills Monocytes/100 WBC (Bld) 10.6 % Normal 1.7-12.0 [facility] Comment on above: Performed By: #### C BC #### [facility] [address] [place] [address] Dr. Ashlie Hills NEUT # 5.3 103/ul Normal 1.4-6.5 [facility] Comment on above: Performed By: #### C BC #### [facility] [address] [place] [address] Dr. Ashlie Hills Neutrophils/100 WBC (Bld) 56.8 % Normal 43.0-75.0 [facility] Comment on above: Performed By: #### C BC #### [facility] [address] [place] [address] Dr. Ashlie Hills Platelet mean volume (Bld) [Entitic vol] 12.5 fL Normal 9.5-13.5 [facility] Comment on above: Performed By: #### C BC #### [facility] [address] [place] [address] Dr. Ashlie Hills PLT 109 103/ul Critically low 150-450 [facility] Comment on above: Performed By: #### C BC #### [facility] [address] [place] [address] Dr. Ashlie Hills RBC 5.47 106/ul Critically high 4.20-5.40 [facility] Comment on above: Performed By: #### C BC #### [facility] [address] [place] [address] Dr. Ashlie Hills WBC 9.4 103/ul Normal 4.0-11.0 [facility] Comment on above: Performed By: #### C BC #### [facility] [address] [place] [address] Dr. Ashlie Hills PROF 14(COMP METB)on 023 Albumin [Mass/Vol] 2.9 g/dL Critically low 3.4-5.0 [facility] Comment on above: Performed By: #### C BC #### [facility] [address] [place] [address] Dr. Ashlie Hills Albumin/Globulin [Mass ratio] 0.6 {ratio} Normal [facility] Comment on above: Performed By: #### C BC #### [facility] [address] [place] [address] Dr. Ashlie Hills ALP [Catalytic activity/Vol] 64 U/L Normal 46-116 [facility] Comment on above: Performed By: #### C BC #### [facility] [address] [place] [address] Dr. Ashlie Hills ALT [Catalytic activity/Vol] 16 U/L Normal 14-59 [facility] Comment on above: Performed By: #### C BC #### [facility] [address] [place] [address] Dr. Ashlie Hills Anion gap [Moles/Vol] 9.6 mmol/L Normal [facility] Comment on above: Performed By: #### C BC #### [facility] [address] [address] [address] Ashlie Hills AST [Catalytic activity/Vol] 16 U/L Normal 15-37 [facility] Comment on above: Performed By: #### C BC #### [facility] [address] [address] [address] Ashlie Hills Bilirubin [Mass/Vol] 0.5 mg/dL Normal 0.2-1.0 [facility] Comment on above: Performed By: #### C BC #### [facility] [address] [address] [address] Ashlie Hills Calcium [Mass/Vol] 8.7 mg/dL Normal 8.5-10.1 [facility] Comment on above: Performed By: #### C BC #### [facility] [address] [address] [address] Ashlie Hills Chloride [Moles/Vol] 103 mmol/L Normal 98-107 [facility] Comment on above: Performed By: #### C BC #### [facility] [address] [address] [address] Ashlie Hills CO2 [Moles/Vol] 30.7 mmol/L Normal 21.0-32.0 [facility] Comment on above: Performed By: #### C BC #### [facility] [address] [address] [address] Ashlie Hills Creatinine [Mass/Vol] 0.96 mg/dL Normal 0.55-1.02 [facility] Comment on above: Performed By: #### C BC #### [facility] [address] [address] [address] Ashlie Hills EGFR-AF GERMAN >60 Normal >=60 [facility] Comment on above: Performed By: #### C BC #### [facility] [address] [address] [address] Ashlie Hills EGFR-NON AF GERMAN >60 Normal >=60 [facility] Comment on above: Performed By: #### C BC #### [facility] [address] [address] [address] Ashlie Hills Globulin (S) [Mass/Vol] 4.7 g/dL Normal [facility] Comment on above: Performed By: #### C BC #### [facility] [address] [place] [address] Dr. Ashlie Hills Glucose [Mass/Vol] 170 mg/dL Critically high 74-106 [facility] Comment on above: Performed By: #### C BC #### [facility] [address] [place] [address] Dr. Ashlie Hills Potassium [Moles/Vol] 4.3 mmol/L Normal 3.5-5.1 [facility] Comment on above: Performed By: #### C BC #### [facility] [address] [place] [address] Dr. Ashlie Hills Protein [Mass/Vol] 7.6 g/dL Normal 6.4-8.2 [facility] Comment on above: Performed By: #### C BC #### [facility] [address] [place] [address] Dr. Ashlie Hills Sodium [Moles/Vol] 139 mmol/L Normal 136-145 [facility] Comment on above: Performed By: #### C BC #### [facility] [address] [place] [address] Dr. Ashlie Hills Urea nitrogen [Mass/Vol] 16.0 mg/dL Normal 7.0-18.0 [facility] Comment on above: Performed By: #### C BC #### [facility] [address] [place] [address] Dr. Ashlie Hills Urea nitrogen/Creatinine [Mass ratio] 16.7 mg/mg Normal [facility] Comment on above: Performed By: #### C BC #### [facility] [address] [place] [address] Dr. Ashlie Hills SYMPTOMATIC COVID-19 ANTIGEN on 12-04-2022 EUA Statement SEE BELOW Normal [facility] Comment on above: Result [...] sooner. Performed By: #### C VDAGS #### [facility] [address] [place] [address] Dr. Ashlie Hills SARS-CoV-2 (COVID-19) RNA MADDY+probe Ql (Unsp spec) Negative Normal NEGATIVE [facility] Comment on above: Performed By: #### C VDAGS #### [facility] [address] [place] [address] Dr. Ashlie Hills TROPONIN, HIGH SENSITIVITYon 12-04-2022 HSTROP 8.9 pg/mL Normal 4.0-51.3 [facility] Comment on above: Result Comment: CUT- OFF POINTS HAVE BEEN ESTABLISHED BASED ON THE FOURTH UNIVERSAL DEFINITIONS OF MYOCARDIAL INFARCTION. THE UPPER REFERENCE LIMIT (URL) OF TROPONIN, DEFINED THE 99TH PERCENTILE OF cTnI DISTRIBUTION IN A REFERENCE POPULATION, HAS BEEN CONFIRMED THE DECISION THRESHOLD FOR SC DIAGNOSIS. Performed By: #### P OCGLUC #### [facility] [address] [place] [address] Dr. Ashlie Hills MICROALBUMIN, RAND URon 05- mALB 35.8 mg/dL Critically high <=30.0 [facility] Comment on above: Performed By: #### C VDAGS #### [facility] [address] [place] [address] Dr. Ashlie Hills UA RANDOM W/MICROSCOPICon BACTERIA NONE SEEN Normal NONE SEEN [facility] Comment on above: Performed By: #### C VDAGS #### [facility] [address] [place] [address] Dr. Ashlie Hills Bilirubin Ql (U) Negative Normal NEGATIVE [facility] Comment on above: Performed By: #### C VDAGS #### [facility] [address] [place] [address] Dr. Ashlie Hills CAST SEEN Abnormal NONE SEEN [facility] Comment on above: Performed By: #### C VDAGS #### [facility] [address] [place] [address] Dr. Ashlie Hills Clarity (U) CLEAR Normal CLEAR [facility] Comment on above: Performed By: #### C VDAGS #### [facility] [address] [place] [address] Dr. Ashlie Hills Color (U) YELLOW Normal YELLOW [facility] Comment on above: Performed By: #### C VDAGS #### [facility] [address] [place] [address] Dr. Ashlie Hills Crystals LM Nom (Urine sed) NONE SEEN Normal NONE SEEN [facility] Comment on above: Performed By: #### C VDAGS #### [facility] [address] [place] [address] Dr. Ashlie Hills Epithelial cells LM Ql (Urine sed) MODERATE Abnormal NONE SEEN /RARE [facility] Comment on above: Performed By: #### C VDAGS #### [facility] [address] [place] [address] Dr. Ashlie Hills Glucose Ql (U) Negative Normal NEGATIVE [facility] Comment on above: Performed By: #### C VDAGS #### [facility] [address] [place] [address] Dr. Ashlie Hills Hemoglobin Ql (U) TRACE-INTACT Abnormal NEGATIVE [facility] Comment on above: Performed By: #### C VDAGS #### [facility] [address] [place] [address] Dr. Ashlie Hills Ketones Ql (U) Negative Normal NEGATIVE [facility] Comment on above: Performed By: #### C VDAGS #### [facility] [address] [place] [address] Dr. Ashlie Hills LEUKOCYTES Negative Normal NEGATIVE [facility] Comment on above: Performed By: #### C VDAGS #### [facility] [address] [place] [address] Dr. Ashlie Hills MUCOUS NONE SEEN Normal NONE SEEN [facility] Comment on above: Performed By: #### C VDAGS #### [facility] [address] [place] [address] Dr. Ashlie Hills Nitrite Ql (U) Negative Normal NEGATIVE [facility] Comment on above: Performed By: #### C VDAGS #### [facility] [address] [place] [address] Dr. Ashlie Hills pH (U) 5.0 [pH] Normal 5-9 [facility] Comment on above: Performed By: #### C VDAGS #### [facility] [address] [place] [address] Dr. Ashlie Hills RBC 0-2 Normal 0-2 [facility] Comment on above: Performed By: #### C VDAGS #### [facility] [address] [place] [address] Dr. Ashlie Hills SPEC GRAVITY 1.030 Abnormal 1.005-<=1.025 [facility] Comment on above: Performed By: #### C VDAGS #### [facility] [address] [place] [address] Dr. Ashlie Hills UA PROTEIN 100 mg/dl Abnormal NEGATIVE/ TRACE [facility] Comment on above: Performed By: #### C VDAGS #### [facility] [address] [place] [address] Dr. Ashlie Hills Urobilinogen Qn (U) 0.2 {Little'U}/dL Normal 0.2 - 1. 0 [facility] Comment on above: Performed By: #### C VDAGS #### [facility] [address] [place] [address] Dr. Ashlie Hills WBC NONE SEEN Normal NONE SEEN [facility] Comment on above: Performed By: #### C VDAGS #### [facility] [address] [place] [address] Dr. Ashlie Hills CBC AUTO DIFFon 11-22-2022 BASO # 0.0 103/ul Normal 0.0-0.1 [facility] Comment on above: Performed By: #### C BC #### [facility] [address] [address] [address] Ashlie Hills Basophils/100 WBC (Bld) 0.3 % Normal 0.2-2.0 [facility] Comment on above: Performed By: #### C BC #### [facility] [address] [place] [address] Dr. Ashlie Hills EO # 0.4 103/ul Normal 0.0-0.7 [facility] Comment on above: Performed By: #### C BC #### [facility] [address] [place] [address] Dr. Ashlie iHlls Eosinophils/100 WBC (Bld) 3.0 % Normal 0.9-7.0 [facility] Comment on above: Performed By: #### C BC #### [facility] [address] [place] [address] Dr. Ashlie Hills Erythrocyte distribution width (RBC) [Ratio] 15.3 % Critically high 11.0-15.0 [facility] Comment on above: Performed By: #### C BC #### [facility] [address] [place] [address] Dr. Ashlie Hills Hematocrit (Bld) [Volume fraction] 52.4 % Critically high 36.0-48.0 [facility] Comment on above: Performed By: #### C BC #### [facility] [address] [place] [address] Dr. Ashlie Hills Hemoglobin (Bld) [Mass/Vol] 16.8 g/dL Critically high 12.0-16.0 [facility] Comment on above: Performed By: #### C BC #### [facility] [address] [place] [address] Dr. Ashlie Hills IG # 0.04 10e3/ul Critically high 0.00-0.03 [facility] Comment on above: Performed By: #### C BC #### [facility] [address] [place] [address] Dr. Ashlie Hills IG % 0.3 % Normal 0.0-0.5 [facility] Comment on above: Performed By: #### C BC #### [facility] [address] [place] [address] Dr. Ashlie Hills LYMPH # 4.5 103/ul Critically high 1.2-3.8 [facility] Comment on above: Performed By: #### C BC #### [facility] [address] [place] [address] Dr. Ashlie Hills Lymphocytes/100 WBC (Bld) 33.2 % Normal 20.5-60.0 [facility] Comment on above: Performed By: #### C BC #### [facility] [address] [place] [address] Dr. Ashlie Hills MANUAL DIFF REQ NO Normal [facility] Comment on above: Performed By: #### C BC #### [facility] [address] [place] [address] Dr. Ashlie Hills MCH (RBC) [Entitic mass] 28.0 pg Normal 26.7-34.0 [facility] Comment on above: Performed By: #### C BC #### [facility] [address] [place] [address] Dr. Ashlie Hills MCHC (RBC) [Mass/Vol] 32.1 g/dL Normal 29.9-35.2 [facility] Comment on above: Performed By: #### C BC #### [facility] [address] [place] [address] Dr. Ashlie Hills MCV (RBC) [Entitic vol] 87.3 fL Normal 81.0-99.0 [facility] Comment on above: Performed By: #### C BC #### [facility] [address] [place] [address] Dr. Ashlie Hills MONO # 0.8 103/ul Normal 0.3-0.8 [facility] Comment on above: Performed By: #### C BC #### [facility] [address] [place] [address] Dr. Ashlie Hills Monocytes/100 WBC (Bld) 5.7 % Normal 1.7-12.0 [facility] Comment on above: Performed By: #### C BC #### [facility] [address] [place] [address] Dr. Ashlie Hills NEUT # 7.8 103/ul Critically high 1.4-6.5 [facility] Comment on above: Performed By: #### C BC #### [facility] [address] [place] [address] Dr. Ashlie Hills Neutrophils/100 WBC (Bld) 57.5 % Normal 43.0-75.0 [facility] Comment on above: Performed By: #### C BC #### [facility] [address] [place] [address] Dr. Ashlie Hills Platelet mean volume (Bld) [Entitic vol] 12.0 fL Normal 9.5-13.5 [facility] Comment on above: Performed By: #### C BC #### [facility] [address] [place] [address] Dr. Ashlie Hills PLT 152 103/ul Normal 150-450 [facility] Comment on above: Performed By: #### C BC #### [facility] [address] [place] [address] Dr. Ashlie Hills RBC 6.00 106/ul Critically high 4.20-5.40 [facility] Comment on above: Performed By: #### C BC #### [facility] [address] [place] [address] Dr. Ashlie Hills WBC 13.6 103/ul Critically high 4.0-11.0 [facility] Comment on above: Performed By: #### C BC #### [facility] [address] [place] [address] Dr. Ashlie Hills LIPID PROFILEon 11-22-2022 CHOL-HDL RATIO NORM SEE BELOW Normal [facility] Comment on above: Result Comment: 3.3 - 4.4 LOW RISK 4.4 - 7.1 AVERAGE RISK 7.1 - 11.0 MODERATE RISK >11.0 HIGH RISK Performed By: #### C BC #### [facility] [address] [place], [place] [address] Dr. Ashlie Hills Cholesterol [Mass/Vol] 139 mg/dL Normal <=200 [facility] Comment on above: Performed By: #### C BC #### [facility] [address] [place], [place] [address] Dr. Ashlie Hills Cholesterol in HDL [Mass/Vol] 35 mg/dL Critically low 40-60 [facility] Comment on above: Performed By: #### C BC #### [facility] [address] [address] [address] Ashlie Hills Cholesterol in LDL [Mass/Vol] 67.4 mg/dL Normal [facility] Comment on above: Performed By: #### C BC #### [facility] [address] [address] [address] Ashlie Hills Cholesterol.total/Gianna sterol in HDL [Mass ratio] 4.0 {ratio} Normal [facility] Comment on above: Performed By: #### C BC #### [facility] [address] [address] [address] Ashlie Hills HDL NORMAL > or = 60 mg/dl - LOW CARDIOVASCULAR RISK <40 mg/dl - HIGH CARDIOVASCULAR RISK Normal [facility] Comment on above: Performed By: #### C BC #### [facility] [address] [address] [address] Ashlie Hills LDL CALC NORMAL SEE BELOW Normal [facility] Comment on above: Result Comment: <100 mg/dl OPTIMAL 100 - 129 mg/dl NEAR OR ABOVE OPTIMAL 130 - 159 mg/dl BORDERLINE HIGH 160 - 189 mg/dl HIGH >190 mg/dl VERY HIGH Performed By: #### C BC #### [facility] [address] [address] [address] Ashlie Hills Triglyceride [Mass/Vol] 183 mg/dL Critically high <=150 [facility] Comment on above: Performed By: #### C BC #### [facility] [address] [address] [address] Ashlie Hills VLDL CALC 36.6 mg/dL Normal [facility] Comment on above: Performed By: #### C BC #### [facility] [address] [place], [place] [address] Dr. 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 LOCATION: [facility] BREAST COMPOSITION: Almost entirely fatty. FINDINGS: [...] M.D. on 11/22/2022 at 12:09 Normal [facility] PROF 14(COMP METB)on 023 Albumin [Mass/Vol] 3.0 g/dL Critically low 3.4-5.0 Th e [facility] Comment on above: Performed By: #### C BC #### [facility] [address] [place], [place] [address] Dr. Ashlie Hills Albumin/Globulin [Mass ratio] 0.6 {ratio} Normal [facility] Comment on above: Performed By: #### C BC #### [facility] [address] [address] [address] Ashlie Hills ALP [Catalytic activity/Vol] 68 U/L Normal 46-116 [facility] Comment on above: Performed By: #### C BC #### [facility] [address] [address] [address] Ashlie Hills ALT [Catalytic activity/Vol] 14 U/L Normal 14-59 [facility] Comment on above: Performed By: #### C BC #### [facility] [address] [address] [address] Ashlie Hills Anion gap [Moles/Vol] 12.1 mmol/L Normal [facility] Comment on above: Performed By: #### C BC #### [facility] [address] [address] [address] Ashlie Hills AST [Catalytic activity/Vol] 9 U/L Critically low 15-37 [facility] Comment on above: Performed By: #### C BC #### [facility] [address] [address] [address] Ashlie Hills Bilirubin [Mass/Vol] 0.4 mg/dL Normal 0.2-1.0 [facility] Comment on above: Performed By: #### C BC #### [facility] [address] [address] [address] Ashlie Hills Calcium [Mass/Vol] 9.0 mg/dL Normal 8.5-10.1 [facility] Comment on above: Performed By: #### C BC #### [facility] [address] [address] [address] Ashlie Hills Chloride [Moles/Vol] 105 mmol/L Normal 98-107 [facility] Comment on above: Performed By: #### C BC #### [facility] [address] [address] [address] Ashlie Hills CO2 [Moles/Vol] 30.7 mmol/L Normal 21.0-32.0 [facility] Comment on above: Performed By: #### C BC #### [facility] [address] [address] [address] Ashlie Hills Creatinine [Mass/Vol] 0.77 mg/dL Normal 0.55-1.02 [facility] Comment on above: Performed By: #### C BC #### [facility] [address] [address] [address] Ashlie Hills EGFR-AF GERMAN >60 Normal >=60 [facility] Comment on above: Performed By: #### C BC #### [facility] [address] [address] [address] Ashlie Hills EGFR-NON AF GERMAN >60 Normal >=60 [facility] Comment on above: Performed By: #### C BC #### [facility] [address] [place] [address] Dr. Ashlie Hills Globulin (S) [Mass/Vol] 4.8 g/dL Normal [facility] Comment on above: Performed By: #### C BC #### [facility] [address] [place] [address] Dr. Ashlie Hills Glucose [Mass/Vol] 162 mg/dL Critically high 74-106 [facility] Comment on above: Performed By: #### C BC #### [facility] [address] [place] [address] Dr. Ashlie Hills Potassium [Moles/Vol] 3.8 mmol/L Normal 3.5-5.1 [facility] Comment on above: Performed By: #### C BC #### [facility] [address] [place] [address] Dr. Ashlie Hills Protein [Mass/Vol] 7.8 g/dL Normal 6.4-8.2 [facility] Comment on above: Performed By: #### C BC #### [facility] [address] [place] [address] Dr. Ashlie Hills Sodium [Moles/Vol] 144 mmol/L Normal 136-145 [facility] Comment on above: Performed By: #### C BC #### [facility] [address] [place] [address] Dr. Ashlie Hills Urea nitrogen [Mass/Vol] 24.0 mg/dL Critically high 7.0-18.0 [facility] Comment on above: Performed By: #### C BC #### [facility] [address] [place] [address] Dr. Ashlie Hills Urea nitrogen/Creatinine [Mass ratio] 31.2 mg/mg Normal [facility] Comment on above: Performed By: #### C BC #### [facility] [address] [place] [address] Dr. Ashlie Hills CBC AUTO DIFFon 10-05-2022 BASO # 0.1 103/ul Normal 0.0-0.1 [facility] Comment on above: Performed By: #### C BC #### [facility] [address] [place] [address] Dr. Ashlie Hills Basophils/100 WBC (Bld) 0.6 % Normal 0.2-2.0 [facility] Comment on above: Performed By: #### C BC #### [facility] [address] [place] [address] Dr. Ashlie Hills EO # 0.3 103/ul Normal 0.0-0.7 [facility] Comment on above: Performed By: #### C BC #### [facility] [address] [place] [address] Dr. Ashlie Hills Eosinophils/100 WBC (Bld) 2.1 % Normal 0.9-7.0 [facility] Comment on above: Performed By: #### C BC #### [facility] [address] [place] [address] Dr. Ashlie Hills Erythrocyte distribution width (RBC) [Ratio] 15.9 % Critically high 11.0-15.0 [facility] Comment on above: Performed By: #### C BC #### [facility] [address] [place] [address] Dr. Ashlie Hills Hematocrit (Bld) [Volume fraction] 51.8 % Critically high 36.0-48.0 [facility] Comment on above: Performed By: #### C BC #### [facility] [address] [address] [address] Ashlie Hills Hemoglobin (Bld) [Mass/Vol] 16.6 g/dL Critically high 12.0-16.0 [facility] Comment on above: Performed By: #### C BC #### [facility] [address] [address] [address] Ashlie Hills IG # 0.03 10e3/ul Normal 0.00-0.03 [facility] Comment on above: Performed By: #### C BC #### [facility] [address] [place] [address] Dr. Ashlie Hills IG % 0.2 % Normal 0.0-0.5 [facility] Comment on above: Performed By: #### C BC #### [facility] [address] [place] [address] Dr. Ashlie Hills LYMPH # 3.9 103/ul Critically high 1.2-3.8 [facility] Comment on above: Performed By: #### C BC #### [facility] [address] [place] [address] Dr. Ashlie Hills Lymphocytes/100 WBC (Bld) 31.7 % Normal 20.5-60.0 [facility] Comment on above: Performed By: #### C BC #### [facility] [address] [place] [address] Dr. Ashlie Hills MANUAL DIFF REQ NO Normal [facility] Comment on above: Performed By: #### C BC #### [facility] [address] [place] [address] Dr. Ashlie Hills MCH (RBC) [Entitic mass] 27.9 pg Normal 26.7-34.0 [facility] Comment on above: Performed By: #### C BC #### [facility] [address] [place] [address] Dr. Ashlie Hills MCHC (RBC) [Mass/Vol] 32.0 g/dL Normal 29.9-35.2 [facility] Comment on above: Performed By: #### C BC #### [facility] [address] [place], [place] [id number] Dr. Ashlie Hills MCV (RBC) [Entitic vol] 87.1 fL Normal 81.0-99.0 [facility] Comment on above: Performed By: #### C BC #### [facility] [address] [place] [address] Dr. Ashlie Hills MONO # 0.7 103/ul Normal 0.3-0.8 [facility] Comment on above: Performed By: #### C BC #### [facility] [address] [place] [address] Dr. Ashlie Hills Monocytes/100 WBC (Bld) 5.8 % Normal 1.7-12.0 [facility] Comment on above: Performed By: #### C BC #### [facility] [address] [place] [address] Dr. Ashlie Hills NEUT # 7.3 103/ul Critically high 1.4-6.5 [facility] Comment on above: Performed By: #### C BC #### [facility] [address] [place] [address] Dr. Ashlie Hills Neutrophils/100 WBC (Bld) 59.6 % Normal 43.0-75.0 [facility] Comment on above: Performed By: #### C BC #### [facility] [address] [place] [address] Dr. Ashlie Hills Platelet mean volume (Bld) [Entitic vol] 11.7 fL Normal 9.5-13.5 [facility] Comment on above: Performed By: #### C BC #### [facility] [address] [place] [address] Dr. Ashlie Hills PLT 117 103/ul Critically low 150-450 [facility] Comment on above: Performed By: #### C BC #### [facility] [address] [place], [place] [id number] Dr. Ashlie Hills RBC 5.95 106/ul Critically high 4.20-5.40 [facility] Comment on above: Performed By: #### C BC #### [facility] [address] [place] [address] Dr. Ashlie Hills WBC 12.3 103/ul Critically high 4.0-11.0 [facility] Comment on above: Performed By: #### C BC #### [facility] [address] [address] [address] ABD/PELV W CONon [...] RICCO PICKARD Date: 2022-10-05 13:13 Normal [facility] ER URINE PROFILEon 3 Bilirubin Ql (U) Negative Normal NEGATIVE [facility] Comment on above: Performed By: #### P OCGLUC #### [facility] [address] [address] [address] Ashlie Hills Clarity (U) CLEAR Normal CLEAR [facility] Comment on above: Performed By: #### P OCGLUC #### [facility] [address] [address] [address] Ashlie Hills Color (U) YELLOW Normal YELLOW [facility] Comment on above: Performed By: #### P OCGLUC #### [facility] [address] [address] [address] Ashlie HOBBS A micrscopic examination will be performed if indicated. Normal [facility] Comment on above: Performed By: #### P OCGLUC #### [facility] [address] [address] [address] Ashlie Hills Glucose Ql (U) Negative Normal NEGATIVE [facility] Comment on above: Performed By: #### P OCGLUC #### [facility] [address] [address] [address] Ashlie Hills Hemoglobin Ql (U) Negative Normal NEGATIVE [facility] Comment on above: Performed By: #### P OCGLUC #### [facility] [address] [address] [address] Ashlie Hills Ketones Ql (U) Negative Normal NEGATIVE [facility] Comment on above: Performed By: #### P OCGLUC #### [facility] [address] [address] [address] Ashlie Hills LEUKOCYTES Negative Normal NEGATIVE [facility] Comment on above: Performed By: #### P OCGLUC #### [facility] [address] [address] [address] Ashlie Hills Nitrite Ql (U) Negative Normal NEGATIVE [facility] Comment on above: Performed By: #### P OCGLUC #### [facility] [address] [place] [address] Dr. Ashlie Hills pH (U) 6.0 [pH] Normal 5-9 [facility] Comment on above: Performed By: #### P OCGLUC #### [facility] [address] [address] [address] Ashlie Hills Protein (U) [Mass/Vol] 100 mg/dL Abnormal NEGAT YURY/ TRACE [facility] Comment on above: Performed By: #### P OCGLUC #### [facility] [address] [place] [address] Dr. Ashlie Hills SPEC GRAVITY 1.010 Normal 1.005-<=1.025 [facility] Comment on above: Performed By: #### P OCGLUC #### [facility] [address] [place] [address] Dr. Ashlie Hills UR MICRO IND INDICATED Normal [facility] Comment on above: Performed By: #### P OCGLUC #### [facility] [address] [place] [address] Dr. Ashlie Hills Urobilinogen Qn (U) 1.0 {Little'U}/dL Normal 0.2 - 1. 0 [facility] Comment on above: Performed By: #### P OCGLUC #### [facility] [address] [place] [address] Dr. Ashlie Hills LIPASEon 10-05-2022 Lipase [Catalytic activity/Vol] 1771.0 U/L Critically high 73.0-393.0 [facility] Comment on above: Performed By: #### C BC #### [facility] [address] [place] [address] Dr. Ashlie Hills PREG HCG QUALon 10-05-2022 , QUAL Negative Normal NEGATIVE [facility] Comment on above: Performed By: #### P OCGLUC #### [facility] [address] [place] [address] Dr. Ashlie Hills PROF 14(COMP METB)on 023 Albumin [Mass/Vol] 3.2 g/dL Critically low 3.4-5.0 [facility] Comment on above: Performed By: #### C BC #### [facility] [address] [place] [address] Dr. Ashlie Hills Albumin/Globulin [Mass ratio] 0.7 {ratio} Normal [facility] Comment on above: Performed By: #### C BC #### [facility] [address] [place] [address] Dr. Ashlie Hills ALP [Catalytic activity/Vol] 70 U/L Normal 46-116 [facility] Comment on above: Performed By: #### C BC #### [facility] [address] [place] [address] Dr. Ashlie Hills ALT [Catalytic activity/Vol] 11 U/L Critically low 14-59 [facility] Comment on above: Performed By: #### C BC #### [facility] [address] [address] [address] Ashlie Hills Anion gap [Moles/Vol] 10.3 mmol/L Normal [facility] Comment on above: Performed By: #### C BC #### [facility] [address] [address] [address] Ashlie Hills AST [Catalytic activity/Vol] 11 U/L Critically low 15-37 [facility] Comment on above: Performed By: #### C BC #### [facility] [address] [address] [address] Ashlie Hills Bilirubin [Mass/Vol] 0.9 mg/dL Normal 0.2-1.0 [facility] Comment on above: Performed By: #### C BC #### [facility] [address] [address] [address] Ashlie Hills Calcium [Mass/Vol] 9.3 mg/dL Normal 8.5-10.1 [facility] Comment on above: Performed By: #### C BC #### [facility] [address] [address] [address] Ashlie Hills Chloride [Moles/Vol] 105 mmol/L Normal 98-107 [facility] Comment on above: Performed By: #### C BC #### [facility] [address] [address] [address] Ashlie Hills CO2 [Moles/Vol] 30.6 mmol/L Normal 21.0-32.0 [facility] Comment on above: Performed By: #### C BC #### [facility] [address] [address] [address] Ashlie Hills Creatinine [Mass/Vol] 0.62 mg/dL Normal 0.55-1.02 [facility] Comment on above: Performed By: #### C BC #### [facility] [address] [address] [address] Ashlie Hills EGFR-AF GERMAN >60 Normal >=60 [facility] Comment on above: Performed By: #### C BC #### [facility] [address] [place] [address] Dr. Ashlie Hills EGFR-NON AF GERMAN >60 Normal >=60 [facility] Comment on above: Performed By: #### C BC #### [facility] [address] [place] [address] Dr. Ashlie Hills Globulin (S) [Mass/Vol] 4.6 g/dL Normal [facility] Comment on above: Performed By: #### C BC #### [facility] [address] [address] [address] Ashlie Hills Glucose [Mass/Vol] 85 mg/dL Normal 74-106 [facility] Comment on above: Performed By: #### C BC #### [facility] [address] [place] [address] Dr. Ashlie Hills Potassium [Moles/Vol] 3.9 mmol/L Normal 3.5-5.1 [facility] Comment on above: Performed By: #### C BC #### [facility] [address] [place] [address] Dr. Ashlie Hills Protein [Mass/Vol] 7.8 g/dL Normal 6.4-8.2 [facility] Comment on above: Performed By: #### C BC #### [facility] [address] [place] [address] Dr. Ashlie Hills Sodium [Moles/Vol] 142 mmol/L Normal 136-145 [facility] Comment on above: Performed By: #### C BC #### [facility] [address] [place] [address] Dr. Ashlie Hills Urea nitrogen [Mass/Vol] 12.0 mg/dL Normal 7.0-18.0 [facility] Comment on above: Performed By: #### C BC #### [facility] [address] [place] [address] Dr. Ashlie Hills Urea nitrogen/Creatinine [Mass ratio] 19.4 mg/mg Normal [facility] Comment on above: Performed By: #### C BC #### [facility] [address] [place] [address] Dr. Ashlie Hills URINE MICROSCOPIC ONLYon BACTERIA TRACE Abnormal NONE SEEN [facility] Comment on above: Performed By: #### P OCGLUC #### [facility] [address] [place] [address] Dr. Ashlie Hills Bacteria identified Cx Nom (U) NOT INDICATED Normal [facility] Comment on above: Performed By: #### P OCGLUC #### [facility] [address] [place] [address] Dr. Ashlie Hills CAST NONE SEEN Normal NONE SEEN [facility] Comment on above: Performed By: #### P OCGLUC #### [facility] [address] [place] [address] Dr. Ashlie Hills Crystals LM Nom (Urine sed) NONE SEEN Normal NONE SEEN [facility] Comment on above: Performed By: #### P OCGLUC #### [facility] [address] [place] [address] Dr. Ashlie Hills Epithelial cells LM Ql (Urine sed) MODERATE Abnormal NONE SEEN /RARE [facility] Comment on above: Performed By: #### P OCGLUC #### [facility] [address] [place] [address] Dr. Ashlie Hills MUCOUS NONE SEEN Normal NONE SEEN [facility] Comment on above: Performed By: #### P OCGLUC #### [facility] [address] [place] [address] Dr. Ashlie Hills RBC 0-2 Normal 0-2 [facility] Comment on above: Performed By: #### P OCGLUC #### [facility] [address] [place] [address] Dr. Ashlie Hills WBC 0-2 Abnormal NONE SEEN [facility] Comment on above: Performed By: #### P OCGLUC #### [facility] [address] [place] [address] Dr. Ashlie Hills Covid-19 PCR (CVDTB)on 09-06 SARS-CoV-2 (COVID-19) RNA MADDY+probe Ql (Unsp spec) Detected Abnormal NOT DETECTED [facility] Comment on above: Result Comment: This test is not yet approved or cleared by the [place] FDA. When there are no FDA-approved or cleared tests available, and other criteria are met, FDA can make tests available under an emergency access mechanism called an Emergency Use Authorization (EUA). The EUA for this test is supported by the [place] of Health and Human Service's declaration that [...] used). Performed By: #### C VDAGS #### [facility] [address] [place] [address] Dr. Ashlie Hills INFLUENZA A AND B [facility] 09-21 [facility] SEE BELOW Normal [facility] Comment on above: Result Comment: Nega tive for Flu A protein angiten. Infection due to Flu A cannot be ruled out. Flu A angiten in the sample may be below the detection limit of the test. Performed By: #### I NFLUAB #### [facility] [address] [place] [address] Dr. Ashlie Hills [facility] SEE BELOW Normal [facility] Comment on above: Result Comment: Nega tive for Flu B protein antigen. Infection due to Flu B cannot be ruled out. Flu B antigen in the sample may be below the detection limit of the test. Performed By: #### I NFLUAB #### [facility] [address] [place] [address] Dr. Ashlie Hills INFLUENZA A AG Negative Normal NEGATIVE SEE COMMENT [facility] Comment on above: Performed By: #### I NFLUAB #### [facility] [address] [place] [address] Dr. Ashlie Hills INFLUENZA B AG Negative Normal NEGATIVE SEE COMMENT [facility] Comment on above: Performed By: #### I NFLUAB #### [facility] [address] [place] [address] ABD/PELV W CONon [...] dating back to at least 10/21/2018, unchanged. [email or web address].ncbi.[facility].nih.gov/pmc/artic les/[email or web address]/ Electronically authenticated by: COLLIN HUERTAS Date: 2022-07-27 14:56 Normal [facility] CREATININEon 07-18-2022 Creatinine [Mass/Vol] 0.81 mg/dL Normal 0.55-1.02 [facility] Comment on above: Performed By: #### C BC #### [facility] [address] [place] [address] Dr. Ashlie Hills EGFR-AF GERMAN >60 Normal >=60 [facility] Comment on above: Performed By: #### C BC #### [facility] [address] [place] [address] Dr. Ashlie Hills EGFR-NON AF GERMAN >60 Normal >=60 [facility] Comment on above: Performed By: #### C BC #### [facility] [address] [place] [address] LOW EXT W [...] PATRICIA VELOZ Date: 2022-07-18 14:58 Normal [facility] XR KNEE LT 1_2 Von 3 [...] HATTIE BAUTISTA Date: 2022-07-18 12:00 Normal [facility] Covid-19 PCR (CVDTB)on 06-09 SARS-CoV-2 (COVID-19) RNA MADDY+probe Ql (Unsp spec) Not detected Normal NOT DETECTED [facility] Comment on above: Result Comment: This test is not yet approved or cleared by the [place] FDA. When there are no FDA-approved or cleared tests available, and other criteria are met, FDA can make tests available under an emergency access mechanism called an Emergency Use Authorization (EUA). The EUA for this test is supported by the [place] of Health and Human Service's (HHS's) declaration [...] SARS-CoV-2. Performed By: #### C BC #### [facility] [address] [place] [address] Dr. Ashlie Hills INFLUENZA A AND B AGon 07-06 INFLUANE SEE BELOW Normal [facility] Comment on above: Result Comment: Nega tive for Flu A protein angiten. Infection due to Flu A cannot be ruled out. Flu A angiten in the sample may be below the detection limit of the test. Performed By: #### C BC #### [facility] [address] [place] [address] Dr. Ashlie Hills INFLUBNEG SEE BELOW Normal [facility] Comment on above: Result Comment: Nega tive for Flu B protein antigen. Infection due to Flu B cannot be ruled out. Flu B antigen in the sample may be below the detection limit of the test. Performed By: #### C BC #### [facility] [address] [place] [address] Dr. Ashlie Hills INFLUENZA A AG Negative Normal NEGATIVE SEE COMMENT [facility] Comment on above: Performed By: #### C BC #### [facility] [address] [place] [address] Dr. Ashlie Hills INFLUENZA B AG Negative Normal NEGATIVE SEE COMMENT [facility] Comment on above: Performed By: #### C BC #### [facility] [address] [place] [address] Dr. Ashlie Hills POINT OF CARE GLUCOSEon 10- Glucose [Mass/Vol] 108 mg/dL Critically high 74-106 [facility] Comment on above: Performed By: #### C BC #### [facility] [address] [place] [address] Dr. Ashlie Hills RAGHU by IFAon 03-07-2022 Antinuclear Antibodies, IFA Negative Normal [facility] Comment on above: Result Comment: Nega tive <1:80 Borderline 1:80 Positive >1:80 ICAP nomenclature: AC-0 For more information about Hep-2 cell patterns use ANApatterns.org, the official website for the International Consensus on Antinuclear Antibody (RAGHU) Patterns (ICAP). Performed By: #### A NAIFA #### [facility] [address] [place] [address] Dr. Ashlie Hills IMMUNOFIXATION (TREVON), URINEo n 03-07-2022 TREVON Interpretation:U Comment Normal [facility] Comment on above: Result Comment: No m onoclonality detected. Performed By: #### C BC #### [facility] [address] [place] [address] Dr. Ashlie Hills IMMUNOFIXATION(TREVON),PROTEIN ELEC(PE),FREon 03-07-2022 Albumin [Mass/Vol] 3.0 g/dL Normal 2.9-4.4 [facility] Comment on above: Performed By: #### I NFLUAB #### [facility] [address] [place] [address] Dr. Ashlie Hills Albumin/Globulin [Mass ratio] 0.8 {ratio} Normal 0.7-1.7 [facility] Comment on above: Performed By: #### I NFLUAB #### [facility] [address] [place] [address] Dr. Ashlie Hills Utxuu-5-Mkuanrpq 0.3 g/dL Normal 0.0-0.4 [facility] Comment on above: Performed By: #### I NFLUAB #### [facility] [address] [place] [address] Dr. Ashlie Hlils Hznjg-4-Nrytufuk 1.0 g/dL Normal 0.4-1.0 [facility] Comment on above: Performed By: #### I NFLUAB #### [facility] [address] [place] [address] Dr. Ashlie Hills Beta Globulin 1.8 g/dL Critically high 0.7-1.3 [facility] Comment on above: Performed By: #### I NFLUAB #### [facility] [address] [address] [address] Ashlie Hills Free [place] Lt Chains,S 45.2 mg/L Critically high 3.3-19.4 [facility] Comment on above: Performed By: #### I NFLUAB #### [facility] [address] [place] [address] Dr. Ashlie Hills Free Lambda Lt Chains,S 40.3 mg/L Critically high 5.7-26. 3 [facility] Comment on above: Performed By: #### I NFLUAB #### [facility] [address] [place] [address] Dr. Ashlie Hills Gamma Globulin 0.8 g/dL Normal 0.4-1.8 [facility] Comment on above: Performed By: #### I NFLUAB #### [facility] [address] [place] [address] Dr. Ashlie Hills Globulin (S) [Mass/Vol] 3.9 g/dL Normal 2.2-3.9 [facility] Comment on above: Performed By: #### I NFLUAB #### [facility] [address] [place] [address] Dr. Ashlie Hlils Immunofixation Result, Serum Comment Normal [facility] Comment on above: Result Comment: No m onoclonality detected. Performed By: #### I NFLUAB #### [facility] [address] [place] [address] Dr. Ashlie Hills Immunoglobulin A, Qn, Serum 776 mg/dL Critically high 87-352 [facility] Comment on above: Performed By: #### I NFLUAB #### [facility] [address] [place] [address] Dr. Ashlie Hills Immunoglobulin G, Qn, Serum 955 mg/dL Normal 586-1602 [facility] Comment on above: Performed By: #### I NFLUAB #### [facility] [address] [place] [address] Dr. Ashlie Hills Immunoglobulin M, Qn, Serum 39 mg/dL Normal 26-217 [facility] Comment on above: Performed By: #### I NFLUAB #### [facility] [address] [address] [address] Ashlie Hills [place]/Lambda Ratio, S 1.12 Normal 0.26-1.65 [facility] Comment on above: Performed By: #### I NFLUAB #### [facility] [address] [address] [address] Ashlie Hills M-Bright Not Observed Normal Not Observed [facility] Comment on above: Performed By: #### I NFLUAB #### [facility] [address] [place] [address] Dr. Ashlie Hills PDF . Normal [facility] Comment on above: Performed By: #### I NFLUAB #### [facility] [address] [place] [address] Dr. Ashlie Hills Please note: Comment Normal [facility] Comment on above: Result Comment: Prot ein electrophoresis scan will follow via computer, mail, or teachers' aide delivery. Performed By: #### I NFLUAB #### [facility] [address] [place] [address] Dr. Ashlie Hills Protein [Mass/Vol] 6.9 g/dL Normal 6.0-8.5 [facility] Comment on above: Performed By: #### I NFLUAB #### [facility] [address] [place] [address] Dr. Ashlie Hills C-PEPTIDE, SERUMon C-Peptide, Serum 3.1 ng/mL Normal 1.1-4.4 [facility] Comment on above: Result Comment: C-Pe ptide reference interval is for fasting patients. Performed By: #### C PEPT #### [facility] [address] [place] [address] Dr. Ashlie Hills HEP B SURFACE ANTIGEN SCREEN on 03-04-2022 HBsAg Screen Negative Normal Negative [facility] Comment on above: Performed By: #### C BC #### [facility] [address] [place] [address] Dr. Ashlie Hills HEPATITIS C VIRUS AB W/ REFL EX QUANTon 03-04-2022 HCV AB <0.1 Normal 0.0-0.9 [facility] Comment on above: Performed By: #### I NFLUAB #### [facility] [address] [address] [address] Ashlie Hills Interpretation: Comment Normal [facility] Comment on above: Result Comment: Nega tive Not infected with HCV, unless recent infection is suspected or other evidence exists to indicate HCV infection. Performed By: #### I NFLUAB #### [facility] [address] [address] [address] Ashlie Hills MICROALBUMIN/ CREATININE RAT IOon 03-04-2022 Albumin, Urine 367.4 ug/mL Normal Not Estab. [facility] Comment on above: Performed By: #### C BC #### [facility] [address] [place] [address] Dr. Ashlie Hills Albumin/ Creatinine Ratio 239 mg/g creat Critically high 0-29 [facility] Comment on above: Result Comment: Norm al: 0 - 29 Moderately increased: 30 - 300 Severely increased: >300 Performed By: #### C BC #### [facility] [address] [address] [address] Ashlie Hills Creatinine, Urine 153.9 mg/dL Normal Not Estab. [facility] Comment on above: Performed By: #### C BC #### [facility] [address] [place] [address] Dr. Ashlie Hills VIT D 25-OH LABCORPon 2021 Vitamin D, 25-Hydroxy <4.0 Critically low 30.0-100.0 [facility] Comment on above: Result Comment: Graciela min D deficiency has been defined by the [place] of [employer] and an Endocrine Society practice guideline as a level of serum 25-OH vitamin D less than 20 ng/mL (1,2). The Endocrine Society went on to further define vitamin D insufficiency as a level between 21 and 29 ng/mL (2). 1. IOM ([place]). 2010. Dietary reference intakes for calcium and D. [place]: The National Academies Press. 2. Lynda MF, Keely OLIVEROS, Leandra LOPEZ, et al. Evaluation, treatment, and prevention of vitamin D deficiency: an Endocrine Society clinical practice guideline. JCEM. 2010; 96(7):1911-30. Performed By: #### C BC #### [facility] [address] [place] [address] Dr. Ashlie Hills GLYCOHEMOGLOBIN A1Con 2021 ADA RECOMMENDATION SEE BELOW Normal [facility] Comment on above: Result Comment: ADA RECOMMENDED LIMIT 4.0 - 6.0 ADA THERAPEUTIC TARGET < 7.0 ACTION SUGGESTED > 7.0 Performed By: #### C VDAGS #### [facility] [address] [place] [address] Dr. Ashlie Hills Glucose [Mass/Vol] 295 mg/dL Normal [facility] Comment on above: Performed By: #### C VDAGS #### [facility] [address] [place] [address] Dr. Ashlie Hills HbA1c (Bld) [Mass fraction] 11.9 % Critically high 4.5-6.2 [facility] [facility] Comment on above: Performed By: #### C VDAGS #### [facility] [address] [place] [address] Dr. Ashlie Hills HEMOGRAM AND PLATELon 2021 Hematocrit (Bld) [Volume fraction] 56.3 % Critically high 36.0-48.0 [facility] Comment on above: Performed By: #### C VDAGS #### [facility] [address] [place] [address] Dr. Ashlie Hills Hemoglobin (Bld) [Mass/Vol] 18.0 g/dL Critically high 12.0-16.0 [facility] Comment on above: Performed By: #### C VDAGS #### [facility] [address] [place] [address] Dr. Ashlie Hills MCH (RBC) [Entitic mass] 29.5 pg Normal 26.7-34.0 [facility] Comment on above: Performed By: #### C VDAGS #### [facility] [address] [place] [address] Dr. Ashlie Hills MCHC (RBC) [Mass/Vol] 32.0 g/dL Normal 29.9-35.2 [facility] Comment on above: Performed By: #### C VDAGS #### [facility] [address] [place] [address] Dr. Ashlie Hills MCV (RBC) [Entitic vol] 92.1 fL Normal 81.0-99.0 [facility] Comment on above: Performed By: #### C VDAGS #### [facility] [address] [place] [address] Dr. Ashlie Hills PLT 123 103/ul Critically low 150-450 [facility] Comment on above: Performed By: #### C VDAGS #### [facility] [address] [place] [address] Dr. Ashlie Hills RBC 6.11 106/ul Critically high 4.20-5.40 [facility] Comment on above: Performed By: #### C VDAGS #### [facility] [address] [place] [address] Dr. Ashlie Hills WBC 16.4 103/ul Critically high 4.0-11.0 [facility] Comment on above: Performed By: #### C VDAGS #### [facility] [address] [place] [address] Dr. Ashlie Hills LIPID PROFILEon 03-03-2022 CHOL-HDL RATIO NORM SEE BELOW Normal [facility] Comment on above: Result Comment: 3.3 - 4.4 LOW RISK 4.4 - 7.1 AVERAGE RISK 7.1 - 11.0 MODERATE RISK >11.0 HIGH RISK Performed By: #### C VDAGS #### [facility] [address] [place] [address] Dr. Ashlie Hills Cholesterol [Mass/Vol] 159 mg/dL Normal <=200 [facility] Comment on above: Performed By: #### C VDAGS #### [facility] [address] [place] [address] Dr. Ashlie Hills Cholesterol in HDL [Mass/Vol] 40 mg/dL Normal 40-60 [facility] Comment on above: Performed By: #### C VDAGS #### [facility] [address] [address] [address] Ashlie Hills Cholesterol in LDL [Mass/Vol] 81.8 mg/dL Normal [facility] Comment on above: Performed By: #### C VDAGS #### [facility] [address] [address] [address] Ashlie Hills Cholesterol.total/Gianna sterol in HDL [Mass ratio] 4.0 {ratio} Normal [facility] Comment on above: Performed By: #### C VDAGS #### [facility] [address] [address] [address] Ashlie Hills HDL NORMAL > or = 60 mg/dl - LOW CARDIOVASCULAR RISK <40 mg/dl - HIGH CARDIOVASCULAR RISK Normal [facility] Comment on above: Performed By: #### C VDAGS #### [facility] [address] [place] [address] Dr. Ashlie Hills LDL CALC NORMAL SEE BELOW Normal [facility] Comment on above: Result Comment: <100 mg/dl OPTIMAL 100 - 129 mg/dl NEAR OR ABOVE OPTIMAL 130 - 159 mg/dl BORDERLINE HIGH 160 - 189 mg/dl HIGH >190 mg/dl VERY HIGH Performed By: #### C VDAGS #### [facility] [address] [place] [address] Dr. Ashlie Hills Triglyceride [Mass/Vol] 186 mg/dL Critically high <=150 [facility] Comment on above: Performed By: #### C VDAGS #### [facility] [address] [place] [address] Dr. Ashlie Hills VLDL CALC 37.2 mg/dL Normal [facility] Comment on above: Performed By: #### C VDAGS #### [facility] [address] [place] [address] Dr. Ashlie Hills RENAL FUNCTION PANELon 03-03 Albumin [Mass/Vol] 3.1 g/dL Critically low 3.4-5.0 Th e [facility] Comment on above: Performed By: #### C BC #### [facility] [address] [place] [address] Dr. Ashlie Hills Calcium [Mass/Vol] 9.2 mg/dL Normal 8.5-10.1 [facility] Comment on above: Performed By: #### C BC #### [facility] [address] [address] [address] Ashlie Hills Chloride [Moles/Vol] 102 mmol/L Normal 98-107 [facility] Comment on above: Performed By: #### C BC #### [facility] [address] [address] [address] Ashlie Hills CO2 [Moles/Vol] 31.9 mmol/L Normal 21.0-32.0 [facility] Comment on above: Performed By: #### C BC #### [facility] [address] [place] [address] Dr. Ashlie Hills Creatinine [Mass/Vol] 0.68 mg/dL Normal 0.55-1.02 [facility] Comment on above: Performed By: #### C BC #### [facility] [address] [place] [address] Dr. Ashlie Hills EGFR-AF GERMAN >60 Normal >=60 [facility] Comment on above: Performed By: #### C BC #### [facility] [address] [place] [address] Dr. Ashlie Hills EGFR-NON AF GERMAN >60 Normal >=60 [facility] Comment on above: Performed By: #### C BC #### [facility] [address] [place] [address] Dr. Ashlie Hills Glucose [Mass/Vol] 131 mg/dL Critically high 74-106 [facility] Comment on above: Performed By: #### C BC #### [facility] [address] [place] [address] Dr. Ashlie Hills Phosphate [Mass/Vol] 4.0 mg/dL Normal 2.6-4.7 [facility] Comment on above: Performed By: #### C BC #### [facility] [address] [place] [address] Dr. Ashlie Hills Potassium [Moles/Vol] 4.0 mmol/L Normal 3.5-5.1 [facility] Comment on above: Performed By: #### C BC #### [facility] [address] [address] [address] Ashlie Hills Sodium [Moles/Vol] 141 mmol/L Normal 136-145 [facility] Comment on above: Performed By: #### C BC #### [facility] [address] [place] [address] Dr. Ashlie Hills Urea nitrogen [Mass/Vol] 17.0 mg/dL Normal 7.0-18.0 [facility] Comment on above: Performed By: #### C BC #### [facility] [address] [place] [address] Dr. Ashlie Hills UA RANDOM W/MICROSCOPICon BACTERIA NONE SEEN Normal NONE SEEN [facility] Comment on above: Performed By: #### I NFLUAB #### [facility] [address] [place] [address] Dr. Ashlie Hills Bilirubin Ql (U) Negative Normal NEGATIVE [facility] Comment on above: Performed By: #### I NFLUAB #### [facility] [address] [place] [address] Dr. Ashlie Hills CAST NONE SEEN Normal NONE SEEN [facility] Comment on above: Performed By: #### I NFLUAB #### [facility] [address] [place] [address] Dr. Ashlie Hills Clarity (U) CLEAR Normal CLEAR [facility] Comment on above: Performed By: #### I NFLUAB #### [facility] [address] [place] [address] Dr. Ashlie Hills Color (U) YELLOW Normal YELLOW [facility] Comment on above: Performed By: #### I NFLUAB #### [facility] [address] [place] [address] Dr. Ashlie Hills Crystals LM Nom (Urine sed) NONE SEEN Normal NONE SEEN [facility] Comment on above: Performed By: #### I NFLUAB #### [facility] [address] [place] [address] Dr. Ashlie Hills Epithelial cells LM Ql (Urine sed) FEW Abnormal NONE SEEN /RARE [facility] Comment on above: Performed By: #### I NFLUAB #### [facility] [address] [place] [address] Dr. Ashlie Hills Glucose Ql (U) Negative Normal NEGATIVE [facility] Comment on above: Performed By: #### I NFLUAB #### [facility] [address] [address] [address] Ashlie Hills Hemoglobin Ql (U) Negative Normal NEGATIVE [facility] Comment on above: Performed By: #### I NFLUAB #### [facility] [address] [place] [address] Dr. Ashlie Hills Ketones Ql (U) Negative Normal NEGATIVE [facility] Comment on above: Performed By: #### I NFLUAB #### [facility] [address] [place] [address] Dr. Ashlie Hills LEUKOCYTES Negative Normal NEGATIVE [facility] Comment on above: Performed By: #### I NFLUAB #### [facility] [address] [place] [address] Dr. Ashlie Hills MUCOUS NONE SEEN Normal NONE SEEN [facility] Comment on above: Performed By: #### I NFLUAB #### [facility] [address] [place] [address] Dr. Ashlie Hills Nitrite Ql (U) Negative Normal NEGATIVE [facility] Comment on above: Performed By: #### I NFLUAB #### [facility] [address] [place] [address] Dr. Ashlie Hills pH (U) 5.5 [pH] Normal 5-9 [facility] Comment on above: Performed By: #### I NFLUAB #### [facility] [address] [place] [address] Dr. Ashlie Hills RBC 0-2 Normal 0-2 [facility] Comment on above: Performed By: #### I NFLUAB #### [facility] [address] [place] [address] Dr. Ashlie Hills SPEC GRAVITY >=1.030 Abnormal 1.005-<=1.025 [facility] Comment on above: Performed By: #### I NFLUAB #### [facility] [address] [place] [address] Dr. Ashlie Hills UA PROTEIN 100 mg/dl Abnormal NEGATIVE/ TRACE [facility] Comment on above: Performed By: #### I NFLUAB #### [facility] [address] [place] [address] Dr. Ashlie Hills Urobilinogen Qn (U) 0.2 {Little'U}/dL Normal 0.2 - 1. 0 [facility] Comment on above: Performed By: #### I NFLUAB #### [facility] [address] [place] [address] Dr. Ashlie Hills WBC NONE SEEN Normal NONE SEEN [facility] Comment on above: Performed By: #### I NFLUAB #### [facility] [address] [place] [address] Dr. Ashlie Hills URIC ACID SERUMon 03-03-2022 Urate [Mass/Vol] 5.0 mg/dL Normal 2.6-6.0 [facility] Comment on above: Performed By: #### I NFLUAB #### [facility] [address] [place] [address] Dr. Ashlie Hills URINE T PROTEIN CREAT RATIOo n 03-03-2022 Protein (U) [Mass/Vol] 77.9 mg/dL Critically high <=12.0 [facility] Comment on above: Performed By: #### C VDAGS #### [facility] [address] [place] [address] Dr. Ashlie Hills UR PROT CREAT RAT 0.44 Normal [facility] Comment on above: Performed By: #### C VDAGS #### [facility] [address] [place] [address] Dr. Ashlie Hills URINE CREAT 175.15 mg/dL Normal 20.00-300.00 [facility] Comment on above: Performed By: #### C VDAGS #### [facility] [address] [place] [address] Dr. Ashlie Hills CULTURE URINEon 12-25-2021 CULTURE URINE Culture Observations: GREATER THAN TWO ORGANISMS PRESENT, HEAVILY MIXED. PLEASE RESUBMIT CLEAN CATCH MID-STREAM URINE IF CLINICALLY INDICATED. Normal [facility] Comment on above: Performed By: #### I NFLUAB #### [facility] [address] [place] [address] Dr. Ashlie Hills CBC AUTO DIFFon 12-24-2021 BASO # 0.1 103/ul Normal 0.0-0.1 [facility] Comment on above: Performed By: #### C BC #### [facility] [address] [place] [address] Dr. Ashlie Hills Basophils/100 WBC (Bld) 0.5 % Normal 0.2-2.0 [facility] Comment on above: Performed By: #### C BC #### [facility] [address] [place] [address] Dr. Ashlie Hills EO # 0.4 103/ul Normal 0.0-0.7 [facility] Comment on above: Performed By: #### C BC #### [facility] [address] [place] [address] Dr. Ashlie Hills Eosinophils/100 WBC (Bld) 2.4 % Normal 0.9-7.0 [facility] Comment on above: Performed By: #### C BC #### [facility] [address] [place] [address] Dr. Ashlie Hills Erythrocyte distribution width (RBC) [Ratio] 14.1 % Normal 11.0-15.0 [facility] Comment on above: Performed By: #### C BC #### [facility] [address] [place] [address] Dr. Ashlie Hills Hematocrit (Bld) [Volume fraction] 55.9 % Critically high 36.0-48.0 [facility] Comment on above: Performed By: #### C BC #### [facility] [address] [place] [address] Dr. Ashlie Hills Hemoglobin (Bld) [Mass/Vol] 17.9 g/dL Critically high 12.0-16.0 [facility] Comment on above: Performed By: #### C BC #### [facility] [address] [address] [address] Ashlie Hills IG # 0.06 10e3/ul Critically high 0.00-0.03 [facility] Comment on above: Performed By: #### C BC #### [facility] [address] [place] [address] Dr. Ashlie Hills IG % 0.4 % Normal 0.0-0.5 [facility] Comment on above: Performed By: #### C BC #### [facility] [address] [place] [address] Dr. Ashlie Hills LYMPH # 5.8 103/ul Critically high 1.2-3.8 [facility] Comment on above: Performed By: #### C BC #### [facility] [address] [place] [address] Dr. Ashlie Hills Lymphocytes/100 WBC (Bld) 35.4 % Normal 20.5-60.0 [facility] Comment on above: Performed By: #### C BC #### [facility] [address] [place] [address] Dr. Ashlie Hills MANUAL DIFF REQ NO Normal [facility] Comment on above: Performed By: #### C BC #### [facility] [address] [place] [address] Dr. Ashlie Hills MCH (RBC) [Entitic mass] 29.4 pg Normal 26.7-34.0 [facility] Comment on above: Performed By: #### C BC #### [facility] [address] [place] [address] Dr. Ashlie Hills MCHC (RBC) [Mass/Vol] 32.0 g/dL Normal 29.9-35.2 [facility] Comment on above: Performed By: #### C BC #### [facility] [address] [place] [address] Dr. Ashlie Hills MCV (RBC) [Entitic vol] 91.8 fL Normal 81.0-99.0 [facility] Comment on above: Performed By: #### C BC #### [facility] [address] [address] [address] Ashlie Hills MONO # 0.8 103/ul Normal 0.3-0.8 [facility] Comment on above: Performed By: #### C BC #### [facility] [id number] Ashlie Hills Monocytes/100 WBC (Bld) 4.8 % Normal 1.7-12.0 [facility] Comment on above: Performed By: #### C BC #### [facility] [address] [address] [address] Ashlie Hills NEUT # 9.3 103/ul Critically high 1.4-6.5 [facility] Comment on above: Performed By: #### C BC #### [facility] [address] [place] [address] Dr. Ashlie Hills Neutrophils/100 WBC (Bld) 56.5 % Normal 43.0-75.0 [facility] Comment on above: Performed By: #### C BC #### [facility] [address] [place] [address] Dr. Ashlie iHlls Platelet mean volume (Bld) [Entitic vol] 12.9 fL Normal 9.5-13.5 [facility] Comment on above: Performed By: #### C BC #### [facility] [address] [place] [address] Dr. Ashlie Hills PLT 127 103/ul Critically low 150-450 [facility] Comment on above: Performed By: #### C BC #### [facility] [address] [place] [address] Dr. Ashlie Hills RBC 6.09 106/ul Critically high 4.20-5.40 [facility] Comment on above: Performed By: #### C BC #### [facility] [address] [place] [address] Dr. Ashlie Hills WBC 16.4 103/ul Critically high 4.0-11.0 [facility] Comment on above: Performed By: #### C BC #### [facility] [address] [place] [address] ABD/PELVIS WO CONon [...] Severe right hip degenerative change. Normal [facility] URINE PROFILEon 2 Bilirubin Ql (U) Negative Normal NEGATIVE [facility] Comment on above: Performed By: #### Tracey LYMAN UMICRO #### [facility] [address] [place] [address] Dr. Aslhie Hills Clarity (U) CLEAR Normal CLEAR [facility] Comment on above: Performed By: #### Tracey LYMAN UMICRO #### [facility] [address] [place] [address] Dr. Ashlie Hills Color (U) DK. ORANGE Abnormal YELLOW [facility] Comment on above: Performed By: #### Tracey LYMAN UMICRO #### [facility] [address] [place] [address] Dr. Ashlie HOBBS A micrscopic examination will be performed if indicated. Normal [facility] Comment on above: Performed By: #### Tracey LYMAN UMICRO #### [facility] [address] [place] [address] Dr. Ashlie Hills Glucose Ql (U) 250 mg/dl Abnormal NEGATIVE [facility] Comment on above: Performed By: #### Tracey LYMAN UMICRO #### [facility] [address] [place] [address] Dr. Ashlie Hills Hemoglobin Ql (U) Negative Normal NEGATIVE [facility] Comment on above: Performed By: #### Tracey LYMAN UMICRO #### [facility] [address] [address] [address] Ashlie Hills Ketones Ql (U) Negative Normal NEGATIVE [facility] Comment on above: Performed By: #### Tracey LYMAN UMICRO #### [facility] [address] [place] [address] Dr. Ashlie Hills LEUKOCYTES Negative Normal NEGATIVE [facility] Comment on above: Performed By: #### MADELINE DIAZRO #### [facility] [address] [place] [address] Dr. Ashlie Hills Nitrite Ql (U) Negative Normal NEGATIVE [facility] Comment on above: Performed By: #### PEREZ DIAZICRO #### [facility] [address] [place] [address] Dr. Ashlie Hills pH (U) 5.0 [pH] Normal 5-9 [facility] Comment on above: Performed By: #### MADELINE DIAZRO #### [facility] [address] [place] [address] Dr. Ashlie Hills Protein (U) [Mass/Vol] 100 mg/dL Abnormal NEGAT YURY/ TRACE [facility] Comment on above: Performed By: #### MADELINE DIAZRO #### [facility] [address] [place] [address] Dr. Ashlie Hills SPEC GRAVITY >=1.030 Abnormal 1.005-<=1.025 [facility] Comment on above: Performed By: #### MADELINE DIAZRO #### [facility] [address] [place] [address] Dr. Ashlie Hills UR MICRO IND INDICATED Normal [facility] Comment on above: Performed By: #### MADELINE DIAZRO #### [facility] [address] [place] [address] Dr. Ashlie Hills Urobilinogen Qn (U) 1.0 {Little'U}/dL Normal 0.2 - 1. 0 [facility] Comment on above: Performed By: #### MADELINE DIAZRO #### [facility] [address] [place] [address] Dr. Ashlie Hills PROF CHEM 8 (BAS METB)on Anion gap [Moles/Vol] 12.1 mmol/L Normal [facility] Comment on above: Performed By: #### I NFLUAB #### [facility] [address] [address] [address] Ashlie Hills Calcium [Mass/Vol] 9.0 mg/dL Normal 8.5-10.1 [facility] Comment on above: Performed By: #### I NFLUAB #### [facility] [address] [address] [address] Ashlie Hills Chloride [Moles/Vol] 101 mmol/L Normal 98-107 [facility] Comment on above: Performed By: #### I NFLUAB #### [facility] [address] [address] [address] Ashlie Hills CO2 [Moles/Vol] 29.1 mmol/L Normal 21.0-32.0 [facility] Comment on above: Performed By: #### I NFLUAB #### [facility] [address] [place] [address] Dr. Ashlie Hills Creatinine [Mass/Vol] 0.86 mg/dL Normal 0.55-1.02 [facility] Comment on above: Performed By: #### I NFLUAB #### [facility] [address] [address] [address] Ashlie Hills EGFR-AF GERMAN >60 Normal >=60 [facility] Comment on above: Performed By: #### I NFLUAB #### [facility] [address] [place] [address] Dr. Ashlie Hills EGFR-NON AF GERMAN >60 Normal >=60 [facility] Comment on above: Performed By: #### I NFLUAB #### [facility] [address] [address] [address] Ashlie Hills Glucose [Mass/Vol] 236 mg/dL Critically high 74-106 [facility] Comment on above: Performed By: #### I NFLUAB #### [facility] [address] [address] [address] Ashlie Hills Potassium [Moles/Vol] 4.2 mmol/L Normal 3.5-5.1 [facility] Comment on above: Performed By: #### I NFLUAB #### [facility] [address] [address] [address] Ashlie Hills Sodium [Moles/Vol] 138 mmol/L Normal 136-145 [facility] Comment on above: Performed By: #### I NFLUAB #### [facility] [address] [place] [address] Dr. Ashlie Hills Urea nitrogen [Mass/Vol] 11.0 mg/dL Normal 7.0-18.0 [facility] Comment on above: Performed By: #### I NFLUAB #### [facility] [address] [place] [address] Dr. Ashlie Hills Urea nitrogen/Creatinine [Mass ratio] 12.8 mg/mg Normal [facility] Comment on above: Performed By: #### I NFLUAB #### [facility] [address] [place] [address] Dr. Ashlie Hills URINE MICROSCOPIC ONLYon BACTERIA SMALL Abnormal NONE SEEN [facility] Comment on above: Performed By: #### Tracey LYMAN UMICRO #### [facility] [address] [place] [address] Dr. Ashlie Hills Bacteria identified Cx Nom (U) INDICATED Normal [facility] Comment on above: Performed By: #### E NURA UMICRO #### [facility] [address] [place] [address] Dr. Ashlie Hills CAST NONE SEEN Normal NONE SEEN [facility] Comment on above: Performed By: #### Tracey LYMAN UMICRO #### [facility] [address] [place] [address] Dr. Ashlie Hills Crystals LM Nom (Urine sed) NONE SEEN Normal NONE SEEN [facility] Comment on above: Performed By: #### E JIMMYR UMICRO #### [facility] [address] [place] [address] Dr. Ashlie Hills Epithelial cells LM Ql (Urine sed) MODERATE Abnormal NONE SEEN /RARE [facility] Comment on above: Performed By: #### E RUR, UMICRO #### [facility] [address] [place] [address] Dr. Ashlie Hills MUCOUS NONE SEEN Normal NONE SEEN [facility] Comment on above: Performed By: #### E RUR, UMICRO #### [facility] [address] [address] [address] Ashlie Hills RBC 0-2 Normal 0-2 [facility] Comment on above: Performed By: #### E RUR, UMICRO #### [facility] [address] [address] [address] Ashlie Hills WBC 0-2 Abnormal NONE SEEN [facility] Comment on above: Performed By: #### E RUR, UMICRO #### [facility] [address] [address] [address] Ashlie Hills YEAST PRESENT Abnormal NONE SEEN [facility] Comment on above: Performed By: #### E RUR, UMICRO #### [facility] [address] [address] [address] Ashlie Hills HIP RIGHT 1 OR 2 VWS WITH PE LVISon 07-20-2020 HIP RIGHT 1 OR 2 VWS WITH PELVIS [facility] Department of Radiology [address] [place] [phone] Patient Name: MITZI MACIAS : 1970 Sex: F Age: Race: White Pt. Location: Patient Status: O Ordered Date: 07/20/2020 1:45:00 PM Completed Date: 07/20/2020 01:57 PM Requesting Provider: LIZ EISENBERG Attending Provider: LIZ EISENBERG Report Copy To: MCKAYLA BLAS Signs & Symptoms: M25.551 Pain in right hip I10 History: [place] Comments: evaluate Exam: HIP RIGHT 1 OR [...] MRI. Electronically signed: Pipo Acevedo. Transcribed by: [email or web address], User Resident: Electronically Signed by: PIPO ACEVEDO @ 07/20/2020 03:45 PM Normal [facility] Comment on above: Order Comment: evalu ate Vital Signs Date Time Vital Sign Value Performing Clinician Facility 08-27-2024 17:44-0500 Body mass index (BMI) [Ratio] 57.31 kg/m2 Mckayla Wan [employer] Work Phone: [facility] 08-27-2024 17:44-0500 Body temperature 98.01 [degF] Mckayla Wan [employer] Work Phone: [facility] 08-27-2024 17:44-0500 Body weight 165.97 kg Mckayla Juanjosecayetanojodie [employer] Work Phone: [facility] 08-27-2024 17:44-0500 Diastolic blood pressure 76 mm[Hg] Mckayla Wan [employer] Work Phone: [facility] 08-27-2024 17:44-0500 Heart rate 83 /min Mckayla Wan [employer] Work Phone: [facility] 08-27-2024 17:44-0500 Respiratory rate 18 /min Mckayla Wan [employer] Work Phone: [facility] 08-27-2024 17:44-0500 SaO2% (BldA) [Mass fraction] 91 % Mckayla Wan [employer] Work Phone: [facility] 08-27-2024 17:44-0500 Systolic blood pressure 134 mm[Hg] Mckayla Patriciajodie SCHAEFER Work Phone: [facility] 06-11-2024 10:00-0500 Blood Pressure Location Elbert ARAUZ [facility] 06-11-2024 10:00-0500 Diastolic blood pressure 68 mm[Hg] Elbert ARAUZ [facility] 06-11-2024 10:00-0500 Heart rate 76 /min Elbert ARAUZ [facility] 06-11-2024 10:00-0500 Systolic blood pressure 132 mm[Hg] Elbert ARAUZ [facility] 05-27-2024 10:20-0500 Body height 170.2 cm Rain Souza MD Work Phone: [facility] 05-27-2024 10:20-0500 Body mass index (BMI) [Ratio] 56.7 kg/m2 Rain Souza MD Work Phone: [facility] 05-27-2024 10:20-0500 Body weight 164.2 kg Rain Souza MD Work Phone: [facility] 05-27-2024 10:20-0500 Diastolic blood pressure 66 mm[Hg] Rain Souza MD Work Phone: [facility] 05-27-2024 10:20-0500 Heart rate 72 /min Rain Souza MD Work Phone: [facility] 05-27-2024 10:20-0500 Respiratory rate 16 /min Rain Souza MD Work Phone: [facility] 05-27-2024 10:20-0500 Systolic blood pressure 128 mm[Hg] Rain Souza MD Work Phone: [facility] 04-14-2024 10:27-0400 Body height 165.1 cm Mckayla Juanjosehholz [employer] Work Phone: [facility] 04-14-2024 10:27-0400 Body mass index (BMI) [Ratio] 61.01 kg/m2 Mckayla Aichholz [employer] Work Phone: [facility] 04-14-2024 10:27-0400 Body temperature 98.49 [degF] Mckayla Aichholz [employer] Work Phone: [facility] 04-14-2024 10:27-0400 Body weight 166.29 kg Mckayla Aichholz [employer] Work Phone: [facility] 04-14-2024 10:27-0400 Diastolic blood pressure 80 mm[Hg] Mckayla Aichholz [employer] Work Phone: [facility] 04-14-2024 10:27-0400 Heart rate 77 /min Mckayla Aichholz [employer] Work Phone: [facility] 04-14-2024 10:27-0400 Respiratory rate 19 /min Mckayla Aichholz [employer] Work Phone: [facility] 04-14-2024 10:27-0400 SaO2% (BldA) [Mass fraction] 92 % Mckayla Aichholz [employer] Work Phone: [facility] 04-14-2024 10:27-0400 Systolic blood pressure 116 mm[Hg] Mckayla Aichholz [employer] Work Phone: [facility] 03-08-2022 15:00-0400 Body height 170.18 cm Stephanie Tico Other [employer] Other 03-08-2022 15:00-0400 Body temperature 97.6 [degF] Stephanie Tico Other [employer] Other 03-08-2022 15:00-0400 Diastolic blood pressure 72 mm[Hg] Stephanie Tico Other [employer] Other 03-08-2022 15:00-0400 Respiratory rate 20 /min Stephanie Tico Other [employer] Other 03-08-2022 15:00-0400 SaO2% (BldA) [Mass fraction] 91 % Stephanie Tico Other [employer] Other 03-08-2022 15:00-0400 Systolic blood pressure 131 mm[Hg] Stephanie Tico Other [employer] Other 02-20-2022 09:20-0400 Body height 170.18 cm Stephanie Tico Other [employer] Other 02-20-2022 09:20-0400 Body temperature 96.5 [degF] Stephanie Tico Other [employer] Other 02-20-2022 09:20-0400 Diastolic blood pressure 69 mm[Hg] Stephanie Tico Other [employer] Other 02-20-2022 09:20-0400 Respiratory rate 20 /min Stephanie Tico Other [employer] Other 02-20-2022 09:20-0400 SaO2% (BldA) [Mass fraction] 91 % Stephanie Tico Other [employer] Other 02-20-2022 09:20-0400 Systolic blood pressure 129 mm[Hg] Stephanie Tico Other [employer] Other 02-06-2022 10:24-0400 Blood Pressure Location Elbert ARAUZ [facility] 02-06-2022 10:24-0400 Diastolic blood pressure 76 mm[Hg] Elbert ARAUZ [facility] 02-06-2022 10:24-0400 Heart rate 70 /min Elbert ARAUZ [facility] 02-06-2022 10:24-0400 Respiratory rate 16 /min Elbert ARAUZ [facility] 02-06-2022 10:24-0400 Systolic blood pressure 134 mm[Hg] Elbert ARAUZ [facility] Encounters Encounter Date Encounter Type Care Provider Facility Start: 08-27-2024 End: 08-27-2024 Office outpatient visit 25 minutes Mckayla Blas NP Work Phone: [facility] Comment on above: Anxiety and depressi on ([facility]) (Primary Dx); Morbid (severe) obesity due to excess calories (CMS/[facility]); Body mass index (BMI) 50.0-59.9, adult (CMS/HCC); [...] complication, with long-term current use of insulin (CMS/[facility]); Tobacco user; Mixed hyperlipidemia (CMS/HCC); Gout, unspecified cause, unspecified chronicity, unspecified site; Vitamin deficiency; Gastro-esophageal reflux disease without esophagitis; Edema, unspecified; Edema; Hyperlipidemia, unspecified ([facility]/HCC); Encounter for smoking cessation counseling; Venous ulcer of right leg ([facility]/HCC); Antibiotic-induced yeast infection Start: 08-27-2024 End: 08-27-2024 ambulatory MCKAYLA AICHHOLZ Not Available Start: 08-27-2024 End: 08-27-2024 Clinisync Result Encounter Generic External Data Provider [facility] External Department Unsolicited Start: 08-27-2024 End: 08-27-2024 Clinisync Result Encounter Generic External Data Provider [facility] External Department Unsolicited Start: 08-08-2024 End: 08-08-2024 ambulatory [facility] Start: 07-17-2024 End: 07-17-2024 Refill Mckayla Chetz [employer] Work Phone: [facility] Start: 07-14-2024 End: 07-14-2024 Office outpatient visit 25 minutes Mckayla Blas [employer] [facility] Comment on above: Primary hypertension ([facility]) (Primary Dx); Diabetic polyneuropathy associated with type 2 diabetes mellitus ([facility]); Pulmonary emphysema, unspecified emphysema type ([facility]/HCC); Critical limb ischemia of right lower extremity ([facility]/HCC); PAD (peripheral artery disease) ([facility]); Gastroesophageal reflux disease, unspecified whether esophagitis present; Bilateral lower extremity edema; Venous ulcer of right leg ([facility]/HCC); Type 2 diabetes mellitus with complication, with long-term current use of insulin ([facility]/HCC); Tobacco user; Encounter for smoking cessation counseling; Kidney stone; Adrenal mass 1 cm to 4 cm in diameter ([facility]/HCC); Radiculopathy, lumbar region; Non-seasonal allergic rhinitis, unspecified trigger; Type 2 diabetes mellitus with unspecified complications ([facility]/HCC) Start: 07-14-2024 End: 07-14-2024 ambulatory MCKAYLA AICHHOLZ Not Available Start: 07-05-2024 End: 07-07-2024 Refill Mckayla Aichholz [employer] Work Phone: [facility] Comment on above: Bilateral lower extr emity edema Start: 06-11-2024 ambulatory Elbert ARAUZ Tabathai ty:SHEA [place] Start: 06-11-2024 End: 06-11-2024 Patient encounter procedure Elbert ARAUZ [facility] [place] Start: 05-27-2024 End: 05-27-2024 Bamboo flowsheet Rain Souza MD Work Phone: [facility] Start: 05-27-2024 End: 05-27-2024 Bamboo flowsheet Rain Souza MD Work Phone: [facility] Start: 05-27-2024 End: 05-27-2024 ambulatory RAIN SOUZA Not Available Start: 05-27-2024 End: 05-27-2024 Office outpatient visit 25 minutes Rain Souza MD Work Phone: [facility] Comment on above: Type 2 diabetes asiya itus with hyperglycemia, with long-term current use of insulin (CMS/[facility]) (Primary Dx); Encounter for dietary consultation; Vitamin [...] 04-14-2024 End: 04-14-2024 Bamboo flowsheet Mckayla Blas [employer] Work Phone: [facility] Start: 04-14-2024 End: 04-14-2024 Bamboo flowsheet Mckayla Aichholz [employer] Work Phone: [facility] Start: 04-14-2024 End: 04-14-2024 Office outpatient visit 25 minutes Mckayla Aichholz [employer] Work Phone: [facility] Comment on above: Primary hypertension (CMS/HCC) [...] Start: 04-05-2024 End: 04-06-2024 Refill Mckayla Aichholz [employer] Work Phone: [facility] Comment on above: Hyperlipidemia, unsp ecified (CMS/HCC); Bilateral lower extremity edema Vitamin D deficiency , unspecified Start: 01-17-2024 Patient encounter procedure Rain Souza MD Work Phone: [facility] Start: 01-17-2024 End: 01-17-2024 ambulatory MCKAYLA AICHHOLZ Not Available Start: 11-15-2023 End: 11-15-2023 ambulatory MCKAYLA AICHHOLZ Not Available Start: 11-14-2023 End: 11-14-2023 ambulatory [facility] Start: 11-01-2023 End: 11-01-2023 ambulatory MCKAYLA AICHHOLZ Not Available Start: 09-27-2023 End: 09-27-2023 ambulatory MCKAYLA AICHHOLZ Not Available Start: 08-17-2023 Refill Mckayla Aichholz [employer] Work Phone: [facility] Comment on above: Vaginal yeast infect ion (Primary Dx) Start: 08-14-2023 Refill Mckayla Wan [employer] Work Phone: [facility] Comment on above: Type 2 diabetes asiya itus with unspecified complications ([facility]); Edema, unspecified; Edema Start: 12-05-2022 ambulatory NARENDRANATH LAKSHMIPATHY . Facility:[facility] Start: 12-05-2022 End: 12-06-2022 Evaluation and management of inpatient UMBERTO ALONDRA . Facility:[facility] Start: 11-23-2022 End: 11-23-2022 ambulatory SAYDA PATRICIARAVIJuanis Facility:[facility] Start: 11-22-2022 End: 11-23-2022 ambulatory [employer]OTECTION [employer]ENT MCKAYLA JUANJOSECyaetanoRAVIJuanis Facility:[facility] Start: 11-17-2022 End: 11-18-2022 ambulatory SUBHASH GASPAR . Facility:[facility] Start: 11-15-2022 End: 11-15-2022 Patient encounter procedure SARAH VEGA [facility] Start: 10-05-2022 End: 10-05-2022 ambulatory MARIANO DIAB . Facility:[facility] Start: 09-21-2022 End: 09-21-2022 ambulatory [employer]OTE[employer]ENT MCKAYLA ROBERTORAVIJuanis Facility:[facility] Start: 09-14-2022 ambulatory RAFAEL Ribera y:H1 Start: 08-24-2022 End: [address] CHAPARRO MORTENSEN . Facility:[facility] Start: 08-21-2022 End: 08-22-2022 ambulatory HATTIE BRODERICK Facility:[facility] Start: 07-27-2022 End: 07-28-2022 ambulatory CECILIA TORRES . Facility:[facility] Start: 07-18-2022 End: 07-19-2022 ambulatory CECILIA TORRES . Facility:[facility] Start: 07-18-2022 End: 07-19-2022 ambulatory HATTIE BRODERICK Facility:[facility] Start: 07-06-2022 End: 07-06-2022 ambulatory PROTECTION AGENT MCKAYLA JUANJOSECayetanoJODIE Facility:[facility]1 Start: 05-11-2022 End: 05-12-2022 ambulatory GIL VALENZUELA . Facility:[facility] Start: 04-25-2022 End: 04-25-[address] CHAPARRO MORTENSEN . Facility:[facility] Start: 04-20-2022 End: 04-21-2022 ambulatory GIL VALENZUELA . Facility:[facility] Start: 03-08-2022 End: 03-08-2022 ambulatory Stephanie Tico Other [employer] Other Start: 03-08-2022 Office outpatient vi sit 15 minutes Stephanie Tico [facility] Start: 03-03-2022 End: 03-04-2022 ambulatory PROTECTION AGENT MCKAYLA WAN Facility:[facility]1 Start: 02-20-2022 End: 02-20-2022 ambulatory Stephanie Tico Other [employer] Other Start: 02-20-2022 Office outpatient ne w 45 minutes Stephanie Tico [facility] Start: 02-06-2022 End: 02-06-2022 Patient encounter procedure Elbert ARAUZ [facility] Start: 01-19-2022 End: 01-20-2022 ambulatory GIL VALENZUELA . Facility:[facility]1 Start: 12-24-2021 End: 12-24-2021 ambulatory OLE RAMIREZ Facility: Start: 08-26-2020 End: 09-10-2020 Patient encounter procedure MARY TAVERAS Facility:[facility] Start: 10-30-2019 End: 10-30-2019 Emergency department patient visit [facility] Start: 10-30-2019 End: 10-30-2019 Emergency department patient visit [facility] Emergency Department Start: 11-02-2016 Preoperative state Stephanie Tico Other [employer] Other Procedures Date Procedure Procedure Detail Performing [...] 08-03-2025 Screening for malignant neoplasm of colon [facility] Start: 07-14-2025 Glaucoma screening Diabetes: R etinopathy Screening [facility] Start: 05-13-2025 Glaucoma screening Diabetes: R etinopathy Screening [facility] Start: 01-16-2025 Medicare Annual Wellness (AWV) Medicare Annual Wellness (AWV) [facility] Start: 12-13-2024 Screening for malignant neoplasm of breast Mammogram [facility] Start: 11-11-2024 Urine screening for protein Diabetes: Urine Protein Screening [facility] Start: 10-27-2024 End: 10-27-2024 Patient encounter procedure 10/27/2024 2:00 PM EDT Office Visit [facility] [address] [place] [phone] Mckayla Blas NP [address] [place] [phone] [facility] Start: 10-08-2024 End: 10-08-2024 Patient encounter procedure 10/08/2024 11:20 AM EDT Office Visit [facility] [address] [place] [phone] Rain Souza MD [address] [place] [address] [facility] Start: 08-27-2024 End: 08-27-2024 Patient encounter procedure 08/27/2024 5:30 PM EST Office Visit [facility] [address] [place] [address] Mckayla Blas [employer] [address] [place] [address] [facility] Start: 08-27-2024 End: 08-27-2025 25-hydroxyvitamin D3 [Mass/volume] in Serum or Plasma Vitamin D 25 hydroxy Lab Routine Vitamin deficiency Expected: 08/27/2024 (Approximate), Expires: 08/27/2025 [facility] Comment on above: Expected: 08/27/2024 (Approximate), Expires: 08/27/2025 Start: 08-27-2024 Hemoglobin A1c measurement Diabetes: Hemoglobin A1C [facility] Start: 08-27-2024 End: 08-27-2025 Hepatic function 2000 panel - Serum or Plasma Hepatic function panel Lab Routine Hyperlipidemia, unspecified (CMS/HCC) Expected: 08/27/2024 (Approximate), Expires: 08/27/2025 [facility] Comment on above: Expected: 08/27/2024 (Approximate), Expires: 08/27/2025 Start: 08-27-2024 End: 08-27-2025 Lipid 1996 panel - Serum or Plasma Lipid panel Lab Routine Mixed hyperlipidemia (CMS/HCC) Expected: 08/27/2024 (Approximate), Expires: 08/27/2025 [facility] Work Phone: Comment on above: Expected: 08/27/2024 (Approximate), Expires: 08/27/2025 Start: 08-27-2024 End: 08-27-2025 Microalbumin/Creatini ne panel in random Urine Microalbumin / creatinine, urine ratio Lab Routine Primary hypertension ([facility]) Type 2 diabetes mellitus with complication, with long-term current use of insulin ([facility]) Expected: 08/27/2024 (Approximate), Expires: 08/27/2025 [facility] Comment on above: Expected: 08/27/2024 (Approximate), Expires: 08/27/2025 Start: 08-27-2024 End: 08-27-2025 Urate [Mass/volume] in Serum or Plasma Uric acid Lab Routine Gout, unspecified cause, unspecified chronicity, unspecified site Expected: 08/27/2024 (Approximate), Expires: 08/27/2025 [facility] Comment on above: Expected: 08/27/2024 (Approximate), Expires: 08/27/2025 Start: 08-27-2024 End: 08-27-2025 Urinalysis complete panel - Urine Urinalysis with reflex microscopic (clean catch) Lab Routine Primary hypertension ([facility]) Type 2 diabetes mellitus with complication, with long-term current use of insulin ([facility]) Tobacco user Gout, unspecified cause, unspecified chronicity, unspecified site Expected: 08/27/2024 (Approximate), Expires: 08/27/2025 [facility] Comment on above: Expected: 08/27/2024 (Approximate), Expires: 08/27/2025 Start: 08-26-2024 End: 08-26-2024 Patient encounter procedure 08/26/2024 10:30 AM EST Office Visit [facility] [address] [place] [address] Rain Souza MD [address] [place] [address] [facility] Start: 07-14-2024 End: 07-14-2024 Patient encounter procedure 07/14/2024 6:30 PM EST Office Visit [facility] [address] [place] [address] Mckayla Blas NP [address] [place] [address] [facility] Start: 07-14-2024 End: 07-14-2024 Patient encounter procedure 07/14/2024 10:10 AM EST Office Visit [facility] [address] [place] [address] Rain Souza MD [address] [place] [address] [facility] Start: 06-06-2024 Influenza vaccination Influenza Vacc ine (#1) [facility] Comment on above: Postponed from 03/09 (Patient Refused) Start: 05-27-2024 End: 05-27-2024 Patient encounter procedure 05/27/2024 9:50 AM EST Office Visit [facility] [address] [place] [address] Rain Souza MD [address] [place] [address] [facility] Start: 05-17-2024 Hemoglobin A1c measurement Diabetes: Hemoglobin A1C [facility] Start: 05-15-2024 End: 05-15-2024 Chart abstracting 05/15/2024 Abstract [facility] [address] [place] [address] Rain Souza MD [address] [place] [address] [facility] Start: 05-15-2024 End: 05-15-2024 Patient encounter procedure 05/15/2024 11:20 AM EST Office Visit [facility] [address] [place] [address] Rain Souza MD [address] [place] [phone] [facility] Start: 04-17-2024 End: 04-17-2024 Patient encounter procedure 04/17/2024 3:40 PM EDT Office Visit [facility] [address] [place] [address] Mckayla Blas, [employer] [address] [place] [phone] [facility] Start: 04-14-2024 End: 04-14-2024 Patient encounter procedure 04/14/2024 11:00 AM EDT Office Visit [facility] [address] [place] [address] Mckayla Blas, [employer] [address] [place] [phone] Arrived [facility] Comment on above: Arrived Start: 03-09-2024 Influenza vaccination Influenza Vacc ine (#1) [facility] Start: 02-19-2024 Hemoglobin A1c measurement Diabetes: Hemoglobin A1C [facility] Start: 11-24-2023 Urine screening for protein Diabetes: Urine Protein Screening [facility] Start: 11-23-2023 Screening for malignant neoplasm of breast Mammogram [facility] Start: 10-15-2023 End: 10-15-2023 Patient encounter procedure 10/15/2023 4:30 PM EDT Office Visit [facility] [address] [place] [address] Mckayla Blas, [employer] [address] [place] [id number] [facility] Start: 08-09-2023 Hemoglobin A1c measurement Diabetes: Hemoglobin A1C [facility] Start: 05-27-2021 Glaucoma screening Diabetes: R etinopathy Screening [facility] Start: 03-09-2020 Influenza vaccination Flu vacc ine (Season Ended) [facility], [place] Start: 10-07-2018 Screening for malignant neoplasm of cervix [facility] Start: 2010 [facility] [place] [place] Start: 2000 Screening for malignant neoplasm of cervix HPV/Cotest [facility] Start: 1991 Screening for malignant neoplasm of cervix Cervical cancer screen [place], [place] Start: 1989 DTaP/Tdap/Td vaccine (1 - Tdap) DTaP/Tdap/Td vaccine (1 - Tdap) [place], [place] Start: 1985 HIV screening [facility] [place] [place] Start: 1970 Medicare Annual Wellness (AWV) Medicare Annual Wellness (AWV) [facility] Start: 1970 Screening for malignant neoplasm of colon [facility] Immunizations Immunization Date Immunization Notes Care Provider [facility] 05-18-2023 influenza, injectabl e, quadrivalent, contains preservative Mckayla Blas NP Work Phone: [facility] 05-18-2023 influenza virus vacc ine, unspecified formulation Rain Souza MD Work Phone: [facility] 07-19-2021 SARS-CoV-2 (COVID-19 ) mRNA BNT-162b2 vax EdCourage [facility] 10-28-2020 SARS-CoV-2 (COVID-19 ) mRNA BNT-162b2 vax SARAH SILVIA [facility] 10-08-2020 SARS-CoV-2 (COVID-19 ) mRNA BNT-162b2 vax SARAH SILVIA [facility] 04-16-2017 influenza virus vacc ine, H5N1, A/[place] (national stockpile) Mckayla Blas NP Work Phone: [facility] 04-16-2017 influenza virus vacc ine, unspecified formulation Rain Souza MD Work Phone: [facility] 04-16-2017 influenza, unspecifi ed formulation Elbert ARAUZ [facility] 04-16-2017 pneumococcal polysaccharide vaccine, 23 valent Rain Souza MD Work Phone: [facility] 05-10-2016 influenza virus vacc ine, H5N1, A/[place] (national stockpile) Mckayla Blas [employer] Work Phone: [facility] 05-10-2016 influenza virus vacc ine, unspecified formulation Rain Souza MD Work Phone: [facility] 05-10-2016 influenza, unspecifi ed formulation Elbert ARAUZ [facility] 05-02-2013 influenza virus vacc ine, whole virus Rain Souza MD Work Phone: [facility] 05-02-2013 influenza, injectabl e, quadrivalent, contains preservative Mckayla Blas [employer] Work Phone: [facility] 05-02-2013 influenza, whole Elbert BARBARA ARAMBULA [facility] 01-29-1998 measles, mumps and rubella virus vaccine Rain Souza MD Work Phone: [facility] Payers Date Payer Category Payer Medicare (Managed Care) [employer] [id number] 2023 Private Health Insurance [facility] [id number] 2023-Present [address] [address] [place] [address] [id number] 2023 Medicare [id number] 2023 Private Health Insurance [id number] 2018 Medicaid MEDICAID [facility] [id number] 2018-Present [phone] [address] [place] [address] Medicaid [id number] 2017 Medicare [id number]. [id number] 1970 Unknown [id number] 2.16.840.1.610166.3.579.2. 647 1970 Unknown [id number] 2.16.840.1.720949.3.579.2. 593 1970 Unknown [id number] 2.16.840.1.352567.3.579.2. 593 1970 Unknown [id number] 2.16.840.1.149119.3.579.2. 593 1970 Unknown [id number] 2.16.840.1.193304.3.579.2. 593 1970 Unknown [id number] 2.16.840.1.017137.3.579.2. 593 1970 Unknown [id number] 2.16.840.1.350148.3.579.2. 593 1970 Unknown [id number] 2.16.840.1.667390.3.579.2. 593 1970 Unknown [id number] 2.16.840.1.281740.3.579.2. 593 1970 Unknown [id number] 2.16.840.1.947956.3.579.2. 593 1970 Unknown [id number] 2.16.840.1.924252.3.579.2. 593 1970 Unknown [id number] 2.16.840.1.929715.3.579.2. 593 1970 Unknown [id number] 2.16.840.1.709392.3.579.2. 593 1970 Unknown [id number] 2.16.840.1.623011.3.579.2. 593 1970 Unknown [id number] 2.16.840.1.885088.3.579.2. 593 1970 Unknown [id number] 2.16.840.1.642057.3.579.2. 593 1970 Unknown [id number] .16.840.1.541581.3.579.2. 593 1970 Unknown [id number] 2.16.840.1.397705.3.579.2. 593 1970 Unknown [id number] 2.16.840.1.736560.3.579.2. 593 1970 Unknown [id number] 2.16.840.1.793248.3.579.2. 593 1970 Unknown [id number] 2.16.840.1.149224.3.579.2. 593 1970 Unknown [id number] 2.16.840.1.645250.3.579.2. 593 1970 Unknown [id number] 2.16.840.1.815474.3.579.2. 593 1970 Unknown [id number] 2.16.840.1.219486.3.579.2. 727 1970 Unknown [id number] 2.16.840.1.896428.3.579.2. 727 1970 Unknown [id number] 2.16.840.1.303716.3.579.2. 9 1970 Unknown [id number] 2.16.840.1.463297.3.579.2. 9 1970 Unknown [id number] 2.16.840.1.697682.3.579.2. 1258 1970 Unknown [id number] 2.16.840.1.893474.3.579.2. 9 1970 Unknown [id number] 2.16.840.1.555374.3.579.2. 1258 1970 Unknown [id number] 2.16.840.1.426676.3.579.2. 9 1970 Unknown [id number] 2.16.840.1.852798.3.579.2. 1258 1970 Unknown [id number] 2.16.840.1.947766.3.579.2. 9 1959 Medicaid [id number] 1959 Private Health Insurance [id number] 1959 Unknown [id number] 2.16.840.1.521597.19 Social History Date Type Detail Facility Start: 02-17-2014 End: 07-10-2023 Tobacco smoking status NHIS Current every day smoker [place], [place] Start: 02-17-1994 History of tobacco use Cigarette Smo ker [place] Start: 02-17-2014 End: 08-26-2024 Cigarettes smoked current (pack per day) - Reported [place], [place] Start: 02-17-2014 Alcohol intake Current drinke r of alcohol (finding) [place] Start: 02-17-2014 Alcohol Comment Rare [facility], [place] Start: 1970 Sex Assigned At Not on file [place], [place] Exposure to SARS-CoV -2 (event) Unable to assess [place], [place] Start: 02-06-2022 Tobacco smoking status Smoker (findi ng) [facility] Start: 07-10-2023 End: 08-26-2024 Sex Assigned At Female [facility] Start: 11-15-2022 End: 06-11-2024 Tobacco smoking status Heavy tobacco smoker (finding) [facility] Start: 07-10-2023 Tobacco use and exposure Smoke less tobacco non-user [facility] Start: 07-10-2023 End: 08-27-2024 Alcohol intake Lifetime non-drinker (finding) [facility] Within the last year , have you been afraid of your partner or ex-partner? No [facility] Do you belong to any clubs or organizations such as holiness groups, unions, [employer] or athletic groups, or school groups? Yes [...] Equipment Origin al Text Equipment Identifier Dates [id number] Start: 01-18-2024 USE TO TEST BLOO D SUGAR 4 TIMES DAILY [id number] Start: 07-07-2024 Functional Status Date Assessment Result Facility 06-11-2024 Functional Status N/A [facility] 11-15-2022 Functional Status N/A [facility] 02-06-2022 Functional Status N/A [facility] Clinical Notes 01-19-2022 to 08-27-2024 Mckayla Blas [...] or chew. ergocalciferol (Vitamin D2) 1.25 MG (77421 UT) capsule TAKE 1 CAPSULE BY MOUTH [...] 25 mg, Oral, 2 times daily HYDROcodone-acetaminophen ([place]) 5-325 MG tablet 1 tablet, 3 times [...] CT Albuminuria 09/17/2023 Angiomyolipoma Anxiety and depression ([facility]) 07/10/2023 Asthma ([facility] 07/10/2023 Body mass index (BMI) 50.0-59.9, adult ([facility]) Cellulitis of left lower extremity Cervical cancer ([facility]) 09/17/2023 Chronic pain of both knees 09/17/2023 COPD (chronic obstructive pulmonary disease) ([facility]) 07/10/2023 COPD exacerbation ([facility]) 09/17/2023 Decreased functional mobility 09/17/2023 Diabetic neuropathy ([facility]) 07/10/2023 Dietary counseling and surveillance Edema 07/10/2023 Elevated sed rate Elevated WBC count Essential (primary) hypertension ([facility]) GERD (gastroesophageal reflux disease) 09/17/2023 Hyperlipidemia ([facility]) 09/17/2023 Hypertension ([facility]) 07/10/2023 Insomnia 09/17/2023 skilled nursing (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 ([facility]) Lower extremity edema 09/17/2023 Mixed hyperlipidemia ([facility]) Morbid (severe) obesity due to excess calories ([facility]) Obstructive sleep apnea 07/10/2023 PAD (peripheral artery disease) ([facility]) 09/17/2023 Pancreatitis 09/17/2023 Pneumonia 09/17/2023 Proteinuria, unspecified Pulmonary hypertension ([facility]) 09/17/2023 Radiculopathy, lumbar region 09/17/2023 Tobacco user 09/17/2023 Type 2 diabetes mellitus with complication, with long-term current use of insulin ([facility]) 07/10/2023 Unilateral primary osteoarthritis, [...] List Items Addressed This Visit Diabetic neuropathy ([facility]) Continue with cintia hudson mgmt is prescribing OARRS reviewed Fu in 3 months Goal: tighter glucose control Hypertension ([facility]) Please check blood pressure daily and record [...] complication, with long-term current use of insulin ([facility]) Check blood sugars daily, notify if [...] / creatinine, urine ratio Anxiety and depression (CMS/[facility]) - Primary Current meds: elavil, duloxtine, PHQ [...] of the risks of continued smoking: stroke, SC, all forms of cancer, lung disease, and [...] Morbid (severe) obesity due to excess calories (CMS/[facility]) Discussed with patient their BMI (actual, verses [...] of the risks of continued smoking: stroke, SC, all forms of cancer, lung disease, and [...] complication, with long-term current use of insulin ([facility]) Check blood sugars daily, notify if [...] Morbid (severe) obesity due to excess calories ([facility]) Discussed with patient their BMI (actual, verses [...] Problem(s): Malignant neoplasm of cervix uteri, unspecified ([facility]) Had in the past, had hysterectomy Associated [...] Asthma (CMS/HCC) Current meds: albuterol, duoneb, Has drop hammer setter up 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 Associated Problem(s): Obstructive sleep [...] tighter glucose control documented in this encounter [facility] 08-08-2024 Note [place] [facility] Subjective Mitzi Macias is [...] , Rfl: ergocalciferol (Vitamin D-2) 1.25 MG (09965 Units) capsule, Take 1.25 mg by mouth., [...] and at bedtime., Disp: , Rfl: HYDROcodone-acetaminophen ([place]) 5-325 mg tablet, TAKE 1 TABLET BY [...] TWICE DAILY, Disp: (more content not included)... [facility] 07-14-2024 History of Present illness Narrative Associated [...] or chew. ergocalciferol (Vitamin D2) 1.25 MG (55223 UT) capsule TAKE 1 CAPSULE BY MOUTH ONE TIME PER WEEK furosemide (LASIX) 40 mg, Oral, Daily furosemide (LASIX) 20 mg, Oral, Daily PRN, Take in the afternoon as needed hydrALAZINE (APRESOLINE) 25 mg, Oral, 2 times daily HYDROcodone-acetaminophen ([place]) 5-325 MG tablet 1 tablet, 3 times [...] CT Albuminuria 09/17/2023 Angiomyolipoma Anxiety and depression ([facility]) 07/10/2023 Asthma ([facility]) 07/10/2023 Body mass index (BMI) 50.0-59.9, adult ([facility]) Cellulitis of left lower extremity Cervical cancer ([facility]) 09/17/2023 Chronic pain of both knees 09/17/2023 COPD (chronic obstructive pulmonary disease) ([facility]) 07/10/2023 COPD exacerbation ([facility]) 09/17/2023 Decreased functional mobility 09/17/2023 Diabetic neuropathy ([facility]) 07/10/2023 Dietary counseling and surveillance Edema 07/10/2023 Elevated sed rate Elevated WBC count Essential (primary) hypertension ([facility]) GERD (gastroesophageal reflux disease) 09/17/2023 Hyperlipidemia ([facility]) 09/17/2023 Hypertension ([facility]) 07/10/2023 Insomnia 09/17/2023 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 ([facility]) Lower extremity edema 09/17/2023 Mixed hyperlipidemia ([facility]) Morbid (severe) obesity due to excess calories ([facility]) Obstructive sleep apnea 07/10/2023 PAD (peripheral artery disease) ([facility]) 09/17/2023 Pancreatitis 09/17/2023 Pneumonia 09/17/2023 Proteinuria, unspecified Pulmonary hypertension ([facility]) 09/17/2023 Radiculopathy, lumbar region 09/17/2023 Tobacco user 09/17/2023 Type 2 diabetes mellitus with complication, with long-term current use of insulin ([facility]) 07/10/2023 Unilateral primary osteoarthritis, right hip [...] List Items Addressed This Visit Diabetic neuropathy ([facility]) Continue with tristan EAST reviewed Fu in 3 months COPD (chronic obstructive pulmonary disease) ([facility]) Stable at this time, no changes in meds Encouraged smoking cessation Cont with dr Yañez Hypertension ([facility]) - Primary Please check blood pressure daily and record DASH diet Limit caffeine Take medication as directed Contact office if chest pain, pressure, dizziness, shortness of breath, swelling legs Recommend slow position changes Current meds: hydralazine, lisinopril, Type 2 diabetes mellitus with complication, with long-term current use of insulin ([facility]) Check blood sugars daily, notify if [...] take over prescribing PAD (peripheral artery disease) ([facility]/HCC) Asa, statin Quit smoking BP and DM [...] of the risks of continued smoking: stroke, SC, all forms of cancer, lung disease, and [...] 1 cm to 4 cm in diameter ([facility]) Continue with Urology Kidney stone Continue with Urology Non-seasonal allergic rhinitis Relevant Medications cetirizine (ZyrTEC) 10 MG tablet Critical limb ischemia of right lower extremity ([facility]) Saw vascular, does have narrowing in arteries in legs, and thus the wounds not healing At this point they strongly urge to quit smoking or risk limb amputation Cont asa and statin Also good blood pressure and sugar control Venous ulcer of right leg ([facility]) Encounter for smoking cessation counseling Relevant Medications nicotine (Nicoderm, Step 1) 21 MG/24HR patch Other Visit Diagnoses Type 2 diabetes mellitus with unspecified complications ([facility]) Quitting smokinppd, chantix not helped, ] Face time with pt, spent 15 minutes with pt Associated Problem(s): Tobacco user The patient has been advised of the risks of continued smoking: stroke, SC, all forms of cancer, lung disease, and [...] complication, with long-term current use of insulin ([facility]) Check blood sugars daily, notify if [...] in 3 months documented in this encounter [facility] 06-11-2024 Hospital Discharge instructions Patient Education 06/11/2024 [...] require a prescription. You can also purchase bumw-pjt-igyeqte medicines. Medicines may have nicotine in them [...] and encouragement. Call telephone quitlines, such as 1-828-ZMZQ-NOW, reach out to support groups, or work [...] provider. Document Revised: 06/16/2022 Document Reviewed: 06/16/2022 [employer] Patient Education 2023 [employer] 06/11/2024 10:39:22 Dietary Guidelines to Help [...] include: ?8 oz (237 mL) of milk, ehhrkzw-xgjxqkcsksew-gpbcq milk, and calcium-fortifiedfruit juice. Calcium-fortified means that [...] ?Spinach (cooked), rhubarb, beets, sweet potatoes, and Venezuelan chard. ?Peanuts. ?Potato chips, mexican fries, and baked potatoes with skin on. ?Nuts and nut products. ?Chocolate. If you regularly take a diuretic medicine, make sure to eat at least 1 or 2 servings of fruits or vegetables that are high in potassium each day. These include: ?Avocado. ?Banana. ?[place], prune, carrot, or tomato juice. ?Baked potato. [...] magnesium, fish oil, or vitamin B6. Take gjqf-gjt-txwxdfu and prescription medicines only as told by [...] Lasagna. Frozen meals. Potato chips. Citizen Of [place] fries. The items listed above may not [...] provider. Document Revised: 10/05/2022 Document Reviewed: 10/05/2022 [employer] Patient Education 2023 [employer] Follow Up Care 05/06/2024 08:24:56 With:REGLA PHIPPS, Elbert Joya, URL Address: [facility] [address] [place] [address]- When: Unknown [facility] 05-27-2024 History of Present illness [...] or chew. ergocalciferol (Vitamin D2) 1.25 MG (31629 UT) capsule TAKE 1 CAPSULE BY MOUTH ONE TIME PER WEEK furosemide (LASIX) 20 mg, Oral, Daily PRN, Take in the afternoon as needed furosemide (LASIX) 40 mg, Oral, Daily Glucose Blood (ACCU-CHEK JAQUI PLUS ) 4 times daily hydrALAZINE (APRESOLINE) 25 mg, Oral, 2 times daily HYDROcodone-acetaminophen ([place]) 5-325 MG tablet 1 tablet, 3 times [...] CT Albuminuria 09/17/2023 Angiomyolipoma Anxiety and depression ([facility]) 07/10/2023 Asthma ([facility]) 07/10/2023 Body mass index (BMI) 50.0-59.9, adult ([facility]) Cellulitis of left lower extremity Cervical cancer ([facility]) 09/17/2023 Chronic pain of both knees 09/17/2023 COPD (chronic obstructive pulmonary disease) ([facility]) 07/10/2023 COPD exacerbation ([facility]) 09/17/2023 Decreased functional mobility 09/17/2023 Diabetic neuropathy ([facility]) 07/10/2023 Dietary counseling and surveillance Edema 07/10/2023 Elevated sed rate Elevated WBC count GERD (gastroesophageal reflux disease) 09/17/2023 Hyperlipidemia ([facility]) 09/17/2023 Hypertension ([facility]) 07/10/2023 Insomnia 09/17/2023 skilled nursing (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 ([facility]) Lower extremity edema 09/17/2023 Morbid (severe) obesity due to excess calories ([facility]) Obstructive sleep apnea 07/10/2023 PAD (peripheral artery disease) ([facility]) 09/17/2023 Pancreatitis 09/17/2023 Pneumonia 09/17/2023 Proteinuria, unspecified Pulmonary hypertension ([facility]) 09/17/2023 Radiculopathy, lumbar region 09/17/2023 Tobacco user 09/17/2023 Type 2 diabetes mellitus with complication, with long-term current use of insulin ([facility]) 07/10/2023 Unilateral primary osteoarthritis, [...] hyperglycemia, with long-term current use of insulin ([facility]) - POCT glucose manually resulted - POCT glycosylated hemoglobin (Hb A1C) docked device We will continue with Lantus 58, lispro 02/16/12 according to meal size, Mounjaro 15 mg once weekly, Farxiga 5 mg once a day Encounter for dietary consultation Vitamin D deficiency Primary hypertension ([facility]) To follow with her PCP Insulin long-term use ([facility]) Hyperlipemia, mixed ([facility]) Continue with Zocor 10 mg once daily Microalbuminuria Class 3 severe obesity due to excess calories with serious comorbidity and body mass index (BMI) of 50.0 to 59.9 in adult ([facility]) Diet and exercise reviewed with the patient Follow up in about 3 months (around 08/27/2024). documented in this encounter [facility] 04-14-2024 History of Present illness Narrative Associated [...] with dr Yañez Associated Problem(s): Diabetic neuropathy ([facility]) Continue with tristan EAST reviewed Fu [...] being taken. She does not see a dry sand molder.Eye exam is not current. Hypertension This is [...] or chew. ergocalciferol (Vitamin D2) 1.25 MG (24627 UT) capsule TAKE 1 CAPSULE BY MOUTH ONE TIME PER WEEK furosemide (LASIX) 20 mg, Oral, Daily PRN, Take in the afternoon as needed furosemide (LASIX) 40 mg, Oral, Daily Glucose Blood (ACCU-CHEK JAQUI PLUS ) 4 times daily HumaLOG KWIKPEN 100 UNIT/ML injection Subcutaneous hydrALAZINE (APRESOLINE) 25 mg, Oral, 2 times daily HYDROcodone-acetaminophen ([place]) 5-325 MG tablet 1 tablet, 3 times [...] CT Albuminuria 09/17/2023 Angiomyolipoma Anxiety and depression ([facility]) 07/10/2023 Asthma ([facility]) 07/10/2023 Cellulitis of left lower extremity Cervical cancer ([facility]) 09/17/2023 Chronic pain of both knees 09/17/2023 COPD (chronic obstructive pulmonary disease) ([facility]) 07/10/2023 COPD exacerbation ([facility]) 09/17/2023 Decreased functional mobility 09/17/2023 Diabetic neuropathy ([facility]) 07/10/2023 Edema 07/10/2023 Elevated sed rate Elevated WBC count GERD (gastroesophageal reflux disease) 09/17/2023 Hyperlipidemia ([facility]) 09/17/2023 Hypertension ([facility]) 07/10/2023 Insomnia 09/17/2023 Lower extremity edema 09/17/2023 Obstructive sleep apnea 07/10/2023 PAD (peripheral artery disease) ([facility]) 09/17/2023 Pancreatitis 09/17/2023 Pneumonia 09/17/2023 Pulmonary hypertension ([facility] 09/17/2023 Radiculopathy, lumbar region 09/17/2023 Tobacco user 09/17/2023 Type 2 diabetes mellitus with complication, with long-term current use of insulin ([facility] 07/10/2023 Unilateral primary osteoarthritis, [...] List Items Addressed This Visit Diabetic neuropathy ([facility]) Continue with tristan EAST reviewed Fu in 3 months Relevant Medications pregabalin (Lyrica) 300 MG capsule COPD (chronic obstructive pulmonary disease) ([facility]) - Primary Stable at this time, no changes in meds Encouraged smoking cessation Cont with dr Yañez Hypertension ([facility]) Stable on current meds Refill meds Relevant Medications hydrALAZINE (Apresoline) 25 MG tablet lisinopril 20 MG tablet Type 2 diabetes mellitus with complication, with long-term current use of insulin ([facility]) Check blood sugars daily, follow w [...] 500 MCG tablet documented in this encounter [facility] 11-14-2023 Note [place] [facility] Subjective Mitzi Macias is a 53 y.o. year old female being seen as new patient to establish care. Ref from Mckayla Blas CNP for pulmonary hypertension. She had echo in Aug 2023 while inpatient at [facility] for pneumonia and COPD exacerbation. [...] Other chronic pain PAD (peripheral artery disease) ([facility]) Pneumonia Encounter for screening mammogram for malignant neoplasm of breast Pulmonary hypertension ([facility]) Radiculopathy, lumbar region Current smoker Type 2 diabetes mellitus with complication, with long-term current use of insulin ([facility]/HCC) Unilateral primary osteoarthritis, right hip Vaginal yeast [...] was admitted in early 2023 to the [facility] with hypoxemia and treated as COPD [...] content not included)... [facility] 11-15-2022 Hospital Discharge instructions Patient Education 11/15/2022 [...] include: ?8 oz (237 mL) of milk, kpgrhuu-gpookethdows-ltaiv milk, and calcium-fortifiedfruit juice. Calcium-fortified means that [...] ?Spinach (cooked), rhubarb, beets, sweet potatoes, and [place] chard. ?Peanuts. ?Potato chips, mexican fries, and baked potatoes with skin on. ?Nuts and nut products. ?Chocolate. If you regularly take a diuretic medicine, make sure to eat at least 1 or 2 servings of fruits or vegetables that are high in potassium each day. These include: ?Avocado. ?Banana. ?[place], prune, carrot, or tomato juice. ?Baked potato. [...] magnesium, fish oil, or vitamin B6. Take qviu-viv-pqaechd and prescription medicines only as told by [...] Lasagna. Frozen meals. Potato chips. Citizen [place] fries. The items listed above may not [...] provider. Document Revised: 03/06/2022 Document Reviewed: 03/06/2022 [employer] Patient Education 2022 [employer] Follow Up Care 02/06/2022 11:44:09 With:SARAH VEGA PA-C, URL Address: [address] [place] [address] When: Unknown [facility] Note CONSULTATION CONSULTATION DATE: 08/24/2022 HISTORY [...] We maintain her on pain medication with [place] 5/325 t.i.d., diclofenac 75 mg b.i.d. Her [...] her at this point. A refill for [place] 5/325 t.i.d. and diclofenac 75 mg b.i.d. will be sent to the pharmacy. Vitamin compliance and nutrition were discussed and enforced. I did highly encourage her to use exercise bands to increase the strength in her lower extremities. We will see her in three months' time, unless otherwise indicated, and patient agrees. [facility] 05-11-2022 Note CONSULTATION CONSULTATION DATE: 05/11/2022 [...] 150. Medications include Lyrica 300 mg b.i.d., [place] 5/325 t.i.d., diclofenac 75 mg b.i.d. and [...] her medications today. We will maintain Lyrica, [place] and diclofenac at the set dose and frequency. We will follow-up in the clinic in three months' time. The patient is in agreement to this. Vitamin importance and nutrition were discussed. [facility] 04-20-2022 Note CONSULTATION CONSULTATION DATE: 04/20/2022 [...] medications include Tylenol, Lyrica 300 mg b.i.d., [place] 5/325 t.i.d., amitriptyline, diclofenac and duloxetine. Patient's [...] be followed up in the clinic. [facility] 03-08-2022 Evaluation note Encounter Date Diagnosis [...] to the [facility]. Thrombocytopenia is unclear etiology. [employer] Other 08-15-2022 Evaluation note* Encounter Date Diagnosis [...] follow with Dr. Souza and Dr. Arauz. [employer] Other 08-01-2022 Hospital Discharge instructions Patient Education [...] fried and sweet foods. General instructions Take txgw-dyv-nzmfdie and prescription medicines only as told by [...] 04/21/2010 Document Revised: 10/16/2019 Document Reviewed: 07/11/2018 [employer] Patient Education 2020 [employer] Follow Up Care 01/05/2022 12:02:03 With:REGLA PHIPPS, Elbert Joya, URL Address: [facility] [address] , [place] [address]- [phone] When:Within 6 Month(s) Comments:w/ repeat CT A/P [facility] 07-14-2022 NoteCONSULTATION PROCEDURE DATE: 01/19/2022 PRE AND [...] pattern and the patient tolerated it well. [facility] Signed and Approved by: GIL VALENZUELA . 01/27/2022 14:15:00[facility] [id number] NoteCONSULTATION CONSULTATION DATE: 01/19/2022 This is a [...] today. Medications include Lyrica 300 mg b.i.d., [place] 5/325 t.i.d., diclofenac 75 mg b.i.d. and [...] in three months' time unless otherwise indicated. [facility] Signed and Approved by: GIL VALENZUELA . 01/27/2022 14:15:00[facility] App[facility]ments Appointment Date:08/14/2022 09:15:00 AM Scheduled Provider:Elbert ARAUZ MD Location:[facility] Appointment Type:URO Office Visit [facility] evaluation + Plan note Future Appointments Appointment Date:04/22/2024 10:00:00 AM Scheduled Provider:SARAH VEGA PA-C Location:[facility] Appointment Type:URO Office Visit [facility] evaluation note* Diagnosis Type 2 [...] with unspecified complications (CMS/HCC) Anxiety and depression (CMS/[facility]) Gastro-esophageal reflux disease without esophagitis Edema, unspecified Edema Diabetic polyneuropathy associated with type 2 diabetes mellitus ([facility]) Chronic obstructive pulmonary disease, unspecified ([facility]) Pulmonary emphysema, unspecified emphysema type ([facility]) Bilateral lower extremity edema Tobacco user Tobacco use disorder Hyperpigmentation of skin Other dyschromia documented in this encounter [facility] HealthcareEvaluation note* Diagnosis Obstructive sleep apnea- Primary Obstructive sleep apnea (adult) (pediatric) Pulmonary emphysema, unspecified emphysema type ([facility]) Primary hypertension ([facility]) Unspecified essential hypertension Type 2 diabetes mellitus with complication, with long-term current use of insulin ([facility]) Anxiety and depression ([facility]) Bilateral lower extremity edema Pulmonary emphysema, unspecified emphysema type ([facility])- Primary Primary hypertension ([facility]) Unspecified essential hypertension Class 3 severe obesity with serious comorbidity and body mass index (BMI) of 50.0 to 59.9 in adult, unspecified obesity type ([facility]) Obstructive sleep apnea Obstructive sleep apnea (adult) (pediatric) Pulmonary hypertension ([facility]) Other chronic pulmonary heart diseases Tobacco user Tobacco use disorder Cardiomegaly Primary hypertension ([facility])- Primary Unspecified essential hypertension Gastroesophageal reflux disease, unspecified whether esophagitis present Type 2 diabetes mellitus with complication, with long-term current use of insulin ([facility]) Mixed hyperlipidemia ([facility]) Mixed hyperlipidemia Tobacco user Tobacco use disorder Encounter for screening mammogram for malignant neoplasm of breast Chronic obstructive pulmonary disease, unspecified ([facility]) Other specified chronic obstructive pulmonary disease ([facility]) Anxiety and depression ([facility]) Edema, unspecified Edema Hyperlipidemia, unspecified ([facility]) Diabetic polyneuropathy associated with type 2 diabetes mellitus ([facility]) Gout, unspecified cause, unspecified chronicity, unspecified site Non-seasonal allergic rhinitis, unspecified trigger Bilateral lower extremity edema COPD exacerbation ([facility]) Obstructive chronic bronchitis with exacerbation Pulmonary emphysema, unspecified emphysema type ([facility]) Venous insufficiency Unspecified venous (peripheral) insufficiency Candidiasis of breast COPD exacerbation ([facility])- Primary Obstructive chronic bronchitis with exacerbation Pulmonary hypertension ([facility]) Other chronic pulmonary heart diseases Class 3 severe obesity with serious comorbidity and body mass index (BMI) of 50.0 to 59.9 in adult, unspecified obesity type ([facility]) Encounter for subsequent annual wellness visit (AWV) in Medicare patient- Primary Type 2 diabetes mellitus with unspecified complications ([facility]) Pulmonary emphysema, unspecified emphysema type ([facility]) Moderate persistent asthma without complication ([facility]) Primary hypertension ([facility]) Unspecified essential hypertension Type 2 diabetes mellitus with complication, with long-term current use of insulin ([facility]) Class 3 severe obesity with serious comorbidity and body mass index (BMI) of 50.0 to 59.9 in adult, unspecified obesity type (CMS/[facility]) Tobacco user Tobacco use disorder Other headache syndrome Malignant neoplasm of cervix uteri, unspecified (CMS/[facility]) Other specified disorders of adrenal gland ([facility]) Major depressive disorder, single episode, mild ([facility]) ([facility]) Major depressive disorder, single episode, mild 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 exposed ([facility]) Chronic respiratory failure, unspecified whether with hypoxia or hypercapnia ([facility]) Disorder of adrenal gland, unspecified ([facility]) Non-pressure chronic ulcer of other part of right lower leg limited to breakdown of skin ([facility]) Non-recurrent acute suppurative otitis media of left ear without spontaneous rupture of tympanic membrane Primary hypertension ([facility])- Primary Unspecified essential hypertension Insomnia Insomnia, unspecified Type 2 diabetes mellitus with complication, with long-term current use of insulin ([facility]) Non-seasonal allergic rhinitis, unspecified trigger Type 2 diabetes mellitus with unspecified complications ([facility]) Anxiety and depression ([facility]) Gastro-esophageal reflux disease without esophagitis Edema, unspecified Edema Diabetic polyneuropathy associated with type 2 diabetes mellitus ([facility]) Chronic obstructive pulmonary disease, unspecified (CMS/[facility]) Pulmonary emphysema, unspecified emphysema type (CMS/[facility]) Bilateral lower extremity edema Tobacco user Tobacco use disorder Hyperpigmentation of skin Other dyschromia Type 2 diabetes mellitus with hyperglycemia, with long-term current use of insulin ([facility])- Primary Encounter for dietary consultation Vitamin D deficiency Primary hypertension ([facility]) Unspecified essential hypertension Insulin long-term use ([facility]) Encounter for long-term (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 Hyperlipemia, mixed ([facility]) Mixed hyperlipidemia Microalbuminuria Proteinuria Class 3 severe obesity due to excess calories with serious comorbidity and body mass index (BMI) of 50.0 to 59.9 in adult ([facility]) documented in this encounter [facility] HealthcareEvaluation note* Diagnosis Hyperlipidemia, unspecified ([facility]) Bilateral lower extremity edema documented in this encounter [facility]* Diagnosis Vitamin D deficiency, unspecified documented in this encounter [facility]* Diagnosis Obstructive sleep apnea- Primary Obstructive sleep apnea (adult) (pediatric) Pulmonary emphysema, unspecified emphysema type ([facility]) Primary hypertension ([facility]) Unspecified essential hypertension Type 2 diabetes mellitus with complication, with long-term current use of insulin ([facility]) Anxiety and depression ([facility]) Bilateral lower extremity edema Pulmonary emphysema, unspecified emphysema type ([facility])- Primary Primary hypertension ([facility]) Unspecified essential hypertension Class 3 severe obesity with serious comorbidity and body mass index (BMI) of 50.0 to 59.9 in adult, unspecified obesity type ([facility]) Obstructive sleep apnea Obstructive sleep apnea (adult) (pediatric) Pulmonary hypertension ([facility]) Other chronic pulmonary heart diseases Tobacco user Tobacco use disorder Cardiomegaly Primary hypertension ([facility])- Primary Unspecified essential hypertension Gastroesophageal reflux disease, unspecified whether esophagitis present Type 2 diabetes mellitus with complication, with long-term current use of insulin ([facility]) Mixed hyperlipidemia ([facility]) Mixed hyperlipidemia Tobacco user Tobacco use disorder Encounter for screening mammogram for malignant neoplasm of breast Chronic obstructive pulmonary disease, unspecified ([facility]) Other specified chronic obstructive pulmonary disease ([facility]) Anxiety and depression ([facility]) Edema, unspecified Edema Hyperlipidemia, unspecified ([facility]) Diabetic polyneuropathy associated with type 2 diabetes mellitus ([facility]) Gout, unspecified cause, unspecified chronicity, unspecified site Non-seasonal allergic rhinitis, unspecified trigger Bilateral lower extremity edema COPD exacerbation ([facility]) Obstructive chronic bronchitis with exacerbation Pulmonary emphysema, unspecified emphysema type ([facility]) Venous insufficiency Unspecified venous (peripheral) insufficiency Candidiasis of breast COPD exacerbation ([facility])- Primary Obstructive chronic bronchitis with exacerbation Pulmonary hypertension ([facility]) Other chronic pulmonary heart diseases Class 3 severe obesity with serious comorbidity and body mass index (BMI) of 50.0 to 59.9 in adult, unspecified obesity type ([facility]) Encounter for subsequent annual wellness visit (AWV) in Medicare patient- Primary Type 2 diabetes mellitus with unspecified complications (CMS/HCC) Pulmonary emphysema, unspecified emphysema type (CMS/HCC) Moderate persistent asthma without complication (CMS/HCC) Primary hypertension (CMS/HCC) Unspecified essential hypertension Type 2 diabetes mellitus with complication, with long-term current use of insulin (CMS/[facility]) Class 3 severe obesity with serious comorbidity and body mass index (BMI) of 50.0 to 59.9 in adult, unspecified obesity type (CMS/HCC) Tobacco user Tobacco use disorder Other headache syndrome Malignant neoplasm of cervix uteri, unspecified (CMS/HCC) Other specified disorders of adrenal gland (CMS/HCC) Major depressive disorder, single episode, mild (HCC) (CMS/[facility]) Major depressive disorder, single episode, mild 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 exposed (CMS/[facility]) Chronic respiratory failure, unspecified whether with hypoxia or hypercapnia (CMS/[facility]) Disorder of adrenal gland, unspecified (CMS/[facility]) Non-pressure chronic ulcer of other part of right lower leg limited to breakdown of skin (CMS/[facility]) Non-recurrent acute suppurative otitis media of left ear without spontaneous rupture of tympanic membrane Primary hypertension (CMS/HCC)- Primary Unspecified essential hypertension Insomnia Insomnia, unspecified Type 2 diabetes mellitus with complication, with long-term current use of insulin (CMS/[facility]) Non-seasonal allergic rhinitis, unspecified trigger Type 2 diabetes mellitus with unspecified complications (CMS/[facility]) Anxiety and depression (CMS/[facility]) Gastro-esophageal reflux disease without esophagitis Edema, unspecified Edema Diabetic polyneuropathy associated with type 2 diabetes mellitus (CMS/[facility]) Chronic obstructive pulmonary disease, unspecified (CMS/HCC) [...] complication, with long-term current use of insulin (CMS/[facility]) Anxiety and depression (CMS/[facility]) Bilateral lower extremity edema Pulmonary emphysema, unspecified emphysema type (CMS/HCC)- Primary Primary hypertension (CMS/HCC) Unspecified essential hypertension Class 3 severe obesity with serious comorbidity and body mass index (BMI) of 50.0 to 59.9 in adult, unspecified obesity type ([facility]/HCC) Obstructive sleep apnea Obstructive sleep apnea (adult) (pediatric) Pulmonary hypertension (CMS/[facility]) Other chronic pulmonary heart diseases Tobacco user Tobacco use disorder Cardiomegaly Primary hypertension (CMS/HCC)- Primary Unspecified essential hypertension Gastroesophageal reflux disease, unspecified whether esophagitis present Type 2 diabetes mellitus with complication, with long-term current use of insulin (CMS/[facility]) Mixed hyperlipidemia (CMS/[facility]) Mixed hyperlipidemia Tobacco user Tobacco use disorder Encounter for screening mammogram for malignant neoplasm of breast Chronic obstructive pulmonary disease, unspecified (CMS/[facility]) Other specified chronic obstructive pulmonary disease (CMS/[facility]) Anxiety and depression (CMS/[facility]) Edema, unspecified Edema Hyperlipidemia, unspecified (CMS/[facility]) Diabetic polyneuropathy associated with type 2 diabetes mellitus ([facility]) Gout, unspecified cause, unspecified chronicity, unspecified site Non-seasonal allergic rhinitis, unspecified trigger Bilateral lower extremity edema COPD exacerbation ([facility]) Obstructive chronic bronchitis with exacerbation Pulmonary emphysema, unspecified emphysema type ([facility]) Venous insufficiency Unspecified venous (peripheral) insufficiency Candidiasis of breast COPD exacerbation (CMS/[facility])- Primary Obstructive chronic bronchitis with exacerbation Pulmonary hypertension (CMS/[facility]) Other chronic pulmonary heart diseases Class 3 severe obesity with serious comorbidity and body mass index (BMI) of 50.0 to 59.9 in adult, unspecified obesity type ([facility]) Encounter for subsequent annual wellness visit (AWV) in Medicare patient- Primary Type 2 diabetes mellitus with unspecified complications ([facility]) Pulmonary emphysema, unspecified emphysema type ([facility]) Moderate persistent asthma without complication ([facility]) Primary hypertension ([facility]) Unspecified essential hypertension Type 2 diabetes mellitus with complication, with long-term current use of insulin ([facility]) Class 3 severe obesity with serious comorbidity and body mass index (BMI) of 50.0 to 59.9 in adult, unspecified obesity type ([facility]) Tobacco user Tobacco use disorder Other headache syndrome Malignant neoplasm of cervix uteri, unspecified ([facility]) Other specified disorders of adrenal gland ([facility]) Major depressive disorder, single episode, mild (HCC) ([facility]) Major depressive disorder, single episode, mild 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 exposed ([facility]) Chronic respiratory failure, unspecified whether with hypoxia or hypercapnia ([facility]) Disorder of adrenal gland, unspecified ([facility]) Non-pressure chronic ulcer of other part of right lower leg limited to breakdown of skin (CMS/[facility]) Non-recurrent acute suppurative otitis media of left ear without spontaneous rupture of tympanic membrane Primary hypertension ([facility])- Primary Unspecified essential hypertension Insomnia Insomnia, unspecified Type 2 diabetes mellitus with complication, with long-term current use of insulin ([facility]) Non-seasonal allergic rhinitis, unspecified trigger Type 2 diabetes mellitus with unspecified complications ([facility]) Anxiety and depression ([facility]) Gastro-esophageal reflux disease without esophagitis Edema, unspecified Edema Diabetic polyneuropathy associated with type 2 diabetes mellitus ([facility]) Chronic obstructive pulmonary disease, unspecified ([facility]) Pulmonary emphysema, unspecified emphysema type ([facility]) Bilateral lower extremity edema Tobacco user Tobacco use disorder Hyperpigmentation of skin Other dyschromia Primary hypertension ([facility])- Primary Unspecified essential hypertension Diabetic polyneuropathy associated with type 2 diabetes mellitus ([facility]) Pulmonary emphysema, unspecified emphysema type ([facility]) Critical limb ischemia of right lower extremity ([facility]) PAD (peripheral artery disease) ([facility]) Unspecified peripheral vascular disease Gastroesophageal reflux disease, unspecified whether esophagitis present Bilateral lower extremity edema Venous ulcer of right leg ([facility]) Type 2 diabetes mellitus with complication, with long-term current use of insulin ([facility]) Tobacco user Tobacco use disorder Encounter for smoking cessation counseling Kidney stone Calculus of kidney Adrenal mass 1 cm to 4 cm in diameter ([facility]) Radiculopathy, lumbar region Thoracic or lumbosacral neuritis or radiculitis, unspecified Non-seasonal allergic rhinitis, unspecified trigger Type 2 diabetes mellitus with unspecified complications ([facility]) documented in this encounter [facility] Diagnosis Obstructive sleep apnea- Primary Obstructive sleep apnea (adult) (pediatric) Pulmonary emphysema, unspecified emphysema type (CMS/HCC) Primary hypertension ([facility]) Unspecified essential hypertension Type 2 diabetes mellitus with complication, with long-term current use of insulin ([facility]) Anxiety and depression ([facility]) Bilateral lower extremity edema Pulmonary emphysema, unspecified emphysema type (CMS/HCC)- Primary Primary hypertension (CMS/HCC) Unspecified essential hypertension Class 3 severe obesity with serious comorbidity and body mass index (BMI) of 50.0 to 59.9 in adult, unspecified obesity type ([facility]) Obstructive sleep apnea Obstructive sleep apnea (adult) (pediatric) Pulmonary hypertension (CMS/HCC) Other chronic pulmonary heart diseases Tobacco user Tobacco use disorder Cardiomegaly Primary hypertension (CMS/HCC)- Primary Unspecified essential hypertension Gastroesophageal reflux disease, unspecified whether esophagitis present Type 2 diabetes mellitus with complication, with long-term current use of insulin (CMS/[facility]) Mixed hyperlipidemia (CMS/HCC) Mixed hyperlipidemia Tobacco user Tobacco use disorder Encounter for screening mammogram for malignant neoplasm of breast Chronic obstructive pulmonary disease, unspecified (CMS/[facility]) Other specified chronic obstructive pulmonary disease ([facility]) Anxiety and depression (CMS/HCC) Edema, unspecified Edema Hyperlipidemia, unspecified ([facility]) Diabetic polyneuropathy associated with type 2 diabetes mellitus (CMS/[facility]) Gout, unspecified cause, unspecified chronicity, unspecified site Non-seasonal allergic rhinitis, unspecified trigger Bilateral lower extremity edema COPD exacerbation ([facility]) Obstructive chronic bronchitis with exacerbation Pulmonary emphysema, unspecified emphysema type (CMS/HCC) Venous insufficiency Unspecified venous (peripheral) insufficiency Candidiasis of breast COPD exacerbation (CMS/[facility])- Primary Obstructive chronic bronchitis with exacerbation Pulmonary hypertension (CMS/HCC) Other chronic pulmonary heart diseases Class 3 severe obesity with serious comorbidity and body mass index (BMI) of 50.0 to 59.9 in adult, unspecified obesity type ([facility]) Encounter for subsequent annual wellness visit (AWV) in Medicare patient- Primary Type 2 diabetes mellitus with unspecified complications (CMS/HCC) Pulmonary emphysema, unspecified emphysema type (CMS/HCC) Moderate persistent asthma without complication (CMS/HCC) Primary hypertension (CMS/[facility]) Unspecified essential hypertension Type 2 diabetes mellitus with complication, with long-term current use of insulin ([facility]) Class 3 severe obesity with serious comorbidity and body mass index (BMI) of 50.0 to 59.9 in adult, unspecified obesity type ([facility]/HCC) Tobacco user Tobacco use disorder Other headache syndrome Malignant neoplasm of cervix uteri, unspecified (CMS/[facility]) Other specified disorders of adrenal gland (CMS/[facility]) Major depressive disorder, single episode, mild (HCC) ([facility]) Major depressive disorder, single episode, mild 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 exposed (CMS/[facility]) Chronic respiratory failure, unspecified whether with hypoxia or hypercapnia (CMS/HCC) Disorder of adrenal gland, unspecified (CMS/HCC) Non-pressure chronic ulcer of other part of right lower leg limited to breakdown of skin (CMS/HCC) Non-recurrent acute suppurative otitis media of left ear without spontaneous rupture of tympanic membrane Primary hypertension (CMS/[facility])- Primary Unspecified essential hypertension Insomnia Insomnia, unspecified Type 2 diabetes mellitus with complication, with long-term current use of insulin (CMS/HCC) Non-seasonal allergic rhinitis, unspecified trigger Type 2 diabetes mellitus with unspecified complications (CMS/HCC) Anxiety and depression (CMS/[facility]) Gastro-esophageal reflux disease without esophagitis Edema, unspecified Edema Diabetic polyneuropathy associated with type 2 diabetes mellitus (CMS/[facility]) Chronic obstructive pulmonary disease, unspecified (CMS/[facility]) Pulmonary emphysema, unspecified emphysema type (CMS/HCC) Bilateral lower extremity edema Tobacco user Tobacco use disorder Hyperpigmentation of skin Other dyschromia Primary hypertension (CMS/HCC)- Primary Unspecified essential hypertension Diabetic polyneuropathy associated with type 2 diabetes mellitus (CMS/HCC) Pulmonary emphysema, unspecified emphysema type (CMS/HCC) Critical limb ischemia of right lower extremity (CMS/[facility]) PAD (peripheral artery disease) ([facility]) Unspecified peripheral vascular disease Gastroesophageal reflux disease, unspecified whether esophagitis present Bilateral lower extremity edema Venous ulcer of right leg (CMS/[facility]) Type 2 diabetes mellitus with complication, with long-term current use of insulin (CMS/[facility]) Tobacco user Tobacco use disorder Encounter for smoking cessation counseling Kidney stone Calculus of kidney Adrenal mass 1 cm to 4 cm in diameter ([facility]) Radiculopathy, lumbar region Thoracic or lumbosacral neuritis or radiculitis, unspecified Non-seasonal allergic rhinitis, unspecified trigger Type 2 diabetes mellitus with unspecified complications (CMS/HCC) Anxiety and depression (CMS/HCC)- Primary Morbid (severe) obesity due to excess calories (CMS/[facility]) Body mass index (BMI) 50.0-59.9, adult (CMS/[facility]) Malignant neoplasm of cervix uteri, unspecified (CMS/[facility]) Diabetic polyneuropathy associated with type 2 diabetes mellitus (CMS/HCC) Chronic diastolic heart failure (CMS/HCC) Chronic diastolic heart failure Primary hypertension ([facility]) Unspecified essential hypertension 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 ([facility]) Gastroesophageal reflux disease, unspecified whether esophagitis present Bilateral lower extremity edema Type 2 diabetes mellitus with complication, with long-term current use of insulin ([facility]) Tobacco user Tobacco use disorder Mixed hyperlipidemia ([facility]) Mixed hyperlipidemia Gout, unspecified cause, unspecified chronicity, unspecified site Vitamin deficiency Unspecified vitamin deficiency Gastro-esophageal reflux disease without esophagitis Edema, unspecified Edema Hyperlipidemia, unspecified ([facility]) Encounter for smoking cessation counseling Venous ulcer of right leg ([facility]) Antibiotic-induced yeast infection documented in this encounter [...] History sepsis 2010 Hospitalization History SEE ABOVE [employer] Other Hospital course Narrative No data available for this section [facility] progress note No data available for this section [facility] reason for referral (narrative) , Referral to Dr. 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 Summary Purpose Family History No Family History Records FoundNo Family History Records FoundNo Family History Records FoundNo Family History Records Found No data available for this section No Family History Records FoundNo Family History Records Found Additional Source Comments INFORMATION SOURCE (unrecogn ized section and content) DATE CREATED AUTHOR 10/30/2019 [facility] DATE CREATED AUTHOR AUTHOR'S ORGANIZ ATION 09/15/2020 [facility] DATE CREATED AUTHOR AUTHOR'S ORGANIZ ATION 12/19/2022 [facility] DATE CREATED AUTHOR AUTHOR'S ORGANIZ ATION 06/03/2024 [facility] DATE CREATED AUTHOR AUTHOR'S ORGANIZ ATION 08/10/2024 [facility] DATE CREATED AUTHOR AUTHOR'S ORGANIZ ATION 08/29/2024 [facility] Care Team (unrecognized sect ion and content) Refinery Operator Relationship Specialty Start Date End Date Ty Amin MD PCP - General Family Medicine 01/05/23 Refinery Operator Relationship Specialty Start Date End Date Ty Amin MD PCP - General Family Medicine 01/05/23 Refinery Operator Relationship Specialty Start Date End Date Ty Amin MD [address] [place] [phone] PCP - General Family Medicine 09/20/23 Mckayla Blas NP [address] [place] [phone] PCP - [facility] 09/07/23 09/05/90 Mckayla Blas NP [address] [place] [phone] Nurse Practitioner Family Medicine 09/20/23 Refinery Operator Relationship Specialty Start Date End Date Ty Amin MD [address] [place] [phone] PCP - General Family Medicine 09/20/23 Mckayla Blas NP [address] [place] [phone] PCP - [facility] 09/07/23 09/05/90 Mckayla Blas NP [address] [place] [address] Nurse Practitioner Family Medicine 09/20/23 Refinery Operator Relationship Specialty Start Date End Date Ty Amin MD [address] [place] [phone] PCP - General Family Medicine 09/20/23 Mckayla Blas NP [address] [place] [phone] PCP - [facility] 09/07/23 09/05/90 Mckayla Blas NP [address] [place] [address] Nurse Practitioner Family Medicine 09/20/23 Refinery Operator Relationship Specialty Start Date End Date Ty Amin MD [address] [place] [phone] PCP - General Family Medicine 09/20/23 Mckayla Blas NP [address] [place] [phone] PCP - [facility] 09/07/23 09/05/90 Mckayla Blas NP [address] [place] [address] Nurse Practitioner Family Medicine 09/20/23 Refinery Operator Relationship Specialty Start Date End Date Ty Amin MD [address] [place] [phone] PCP - General Family Medicine 09/20/23 Mckayla Blas NP [address] [place] [phone] PCP - [facility] 09/07/23 09/05/90 Mckayla Blas NP [address] [place] [address] Nurse Practitioner Family Medicine 09/20/23 Refinery Operator Relationship Specialty Start Date End Date Ty Amin MD [address] [place] [phone] PCP - General Family Medicine 09/20/23 Mckayla Blas NP [address] [place] [address] [facility] 09/07/23 09/05/90 Mckayla Blas NP [address] [place] [address] Nurse Practitioner Family Medicine 09/20/23 Refinery Operator Relationship Specialty Start Date End Date Ty Amin MD [address] [place] [phone] PCP - General Family Medicine 09/20/23 Mckayla Blas NP [address] [place] [phone] PCP - [facility] 09/07/23 09/05/90 Mckayla Blas NP [address] [place] [address] Nurse Practitioner Family Medicine 09/20/23 Refinery Operator Relationship Specialty Start Date End Date Ty Amin MD [address] [place] [phone] PCP - General Family Medicine 09/20/23 Mckayla Blas NP [address] [place] [phone] PCP - [facility] 09/07/23 09/05/90 Mckayla Blas NP [address] [place] [address] Nurse Practitioner Family Medicine 09/20/23 Refinery Operator Relationship Specialty Start Date End Date Ty Amin MD [address] [place] [phone] PCP - General Family Medicine 09/20/23 Mckayla Blas NP [address] [place] [phone] PCP - [facility] 09/07/23 09/05/90 Mckayal Blas NP [address] [place] [address] Nurse Practitioner Family Medicine 09/20/23 Refinery Operator Relationship Specialty Start Date End Date Ty Amin MD [address] [place] [phone] PCP - General Family Medicine 09/20/23 Mckayla Blas NP [address] [place] [phone] PCP - [facility] 09/07/23 09/05/90 Mckayla Blas NP [address] [place] [address] Nurse Practitioner Family Medicine 09/20/23 Refinery Operator Relationship Specialty Start Date End Date Ty Amin MD [address] [place] [phone] PCP - General Family Medicine 09/20/23 Mckayla Blas NP [address] [place] [address] [facility] 09/07/23 09/05/90 Mckayla Blas NP [address] [place] [address] Nurse Practitioner Family Medicine 09/20/23 Refinery Operator Relationship Specialty Start Date End Date Ty Amin MD [address] [place] [phone] PCP - General Family Medicine 09/20/23 Mckayla Blas NP [address] [place] [phone] PCP - [facility] 09/07/23 09/05/90 Mckayla Blas NP [address] [place] [address] Nurse Practitioner Family Medicine 09/20/23 REASON FOR [...] BE BASED ON THE PRIMARY CLINICAL RECORDS. [employer] provides no warranty or guarantee of the accuracy or completeness of information in this document.
[2024-10-08 11:03] LABS: Anion Gap 11.5; BUN Creatinine Ratio 28.1; Calcium 9.1 mg/dL (8.5-10.1); Carbon Dioxide 31.8 mmol/L (21.0-32.0); Chloride 105 mmol/L (98-107); Estimated GFR (African America >60 (>=60 mL/min/1.73m^2); Estimated GFR (Non-African Ame >60 (>=60 mL/min/1.73m^2); Glucose 65 mg/dL (74-106); Potassium 4.3 mmol/L (3.5-5.1); Sodium 144 mmol/L (136-145)
== END 2024-10-08 09:35 | disposition home or self-care (01) ==
LOC: LAB 09:35
PROVIDERS: PCP Nurse Practitioner; Visit Provider Internal Medicine Cardiovascular Disease
DX: I10 Essential (primary) hypertension (principal); E78.2 Mixed hyperlipidemia
CPT/HCPCS: 36415; 80048

== ENCOUNTER 2024-10-14 15:22 | Outpatient (OUT) | payer MEDICARE, OTHER, SELFPAY | END 2024-10-14 15:23 | disposition home or self-care (01) | LOC: WC 15:23 | PROVIDERS: PCP Nurse Practitioner; Visit Provider Physician Assistant | DX: I87.311 Chronic venous hypertension (idiopathic) with ulcer of right lower extremity (principal); L97.812 Non-pressure chronic ulcer of other part of right lower leg with fat layer exposed | CPT/HCPCS: G0463 ==

== ENCOUNTER 2024-11-04 11:40 | Outpatient (OUT) | payer MEDICARE, OTHER, SELFPAY | END 2024-11-04 11:41 | disposition home or self-care (01) | LOC: WC 11:41 | PROVIDERS: PCP Nurse Practitioner; Visit Provider Physician Assistant | DX: I87.311 Chronic venous hypertension (idiopathic) with ulcer of right lower extremity (principal); L97.812 Non-pressure chronic ulcer of other part of right lower leg with fat layer exposed | CPT/HCPCS: G0463 ==

== ENCOUNTER 2024-11-25 11:00 | Outpatient (OUT) | payer MEDICARE, OTHER, SELFPAY ==
--- OUTSIDE RECORDS SUMMARY | 2024-11-25 11:06 | XMS_ITS | CCD ---
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 Name Role Phone James Benavidez Primary Care Provider JAMES BENAVIDEZ Primary Care Unavailable SHENRENATOEANISHAHAL Admitting Unavailable SHENRENATOE VITHAL Attending Unavailable AICHHOLZ, MCKAYLA Primary Care Unavailable AICHHOLZ, MCKAYLA Referring Unavailable AICHHOLZ, MCKAYLA J Primary Care Physician Tico, Stephanie Unavailable OLE RAMIREZ Attending Unavailable OLE RAMIREZ Consulting Unavailable AICHHOLZ, MANAGER MASSAGE DEPARTMENT MCKAYLA Primary Care Unavailable OLE RAMIREZ Admitting Unavailable ANTONY SHRESTHA Consulting Unavailable ALONDRA ., UMBERTO Admitting Unavailable ALONDRA ., UMBERTO Attending Unavailable AICHHOLZ, MANAGER MASSAGE DEPARTMENT MCKAYLA Primary Care Unavailable AFSANEH Loera, DR BOLANOS Consulting Unavailable MARYANNE POWER Consulting Unavailable GLENN KERR Consulting Unavailable YOMAIRA KERR Consulting Unavailable HATTIE GOFF Consulting Unavailable ALONDRA ., UMBERTO Consulting Unavailable TICO, STEPHANIE Attending Unavailable TICO, STEPHANIE Consulting Unavailable AICHHOLZ, MANAGER MASSAGE DEPARTMENT MCKAYLA Primary Care Unavailable TICO, STEPHANIE Admitting Unavailable ARAUZ ., DR DUMONT Admitting Unavailable AICHHOLZ, MANAGER MASSAGE DEPARTMENT MCKAYLA Primary Care Unavailable ARAUZ ., DR DUMONT Attending Unavailable ARAUZ ., DR DUMONT Consulting Unavailable COLLIN HUERTAS Consulting Unavailable CECILIA KAUFMAN Admitting Unavailable CECILIA KAUFMAN Attending Unavailable AICHHOLZ, MANAGER MASSAGE DEPARTMENT MCKAYLA Primary Care Unavailable RAFAEL GONGORA Attending Unavailable RAFAEL GONGORA Admitting Unavailable AICHHOLZ, MANAGER MASSAGE DEPARTMENT MCKAYLA Primary Care Unavailable AICHHOLZ, MANAGER MASSAGE DEPARTMENT MCKAYLA Admitting Unavailable AICHHOLZ, MANAGER MASSAGE DEPARTMENT MCKAYLA Primary Care Unavailable AICHHOLZ, MANAGER MASSAGE DEPARTMENT MCKAYLA Attending Unavailable AICHHOLZ, MANAGER MASSAGE DEPARTMENT MCKAYLA Consulting Unavailable LAKSHMIPATHY ., NARENDRANATH Attending Anette vailable LAKSHMIPATHY ., NARENDRANATH Consulting Anette vailable LAKSHMIPATHY ., NARENDRANATH Admitting Anette vailable AICHHOLZ, MANAGER MASSAGE DEPARTMENT MCKAYLA Primary Care Unavailable VALENZUELA ., GIL Consulting Unavailable MORTENSEN ., DR CHAPARRO Aguillon Attending Unavailable MORTENSEN ., DR CHAPARRO Aguillon Admitting Unavailable AICHHOLZ, MANAGER MASSAGE DEPARTMENT MCKAYLA Primary Care Unavailable VALENZUELA ., GIL Consulting Unavailable MORTENSEN ., DR CHAPARRO Aguillon Admitting Unavailable AICHHOLZ, MANAGER MASSAGE DEPARTMENT MCKAYLA Primary Care Unavailable MORTENSEN ., DR CHAPARRO Aguillon Attending Unavailable HALKER ., SUBHASH Consulting Unavailable LAKSHMIPATHY ., NARENDRANATH Admitting Anette vailable LAKSHMIPATHY ., NARENDRANATH Attending Anette vailable AICHHOLZ, MANAGER MASSAGE DEPARTMENT MCKAYLA Primary Care Unavailable MORTENSEN ., DR CHAPARRO Aguillon Attending Unavailable MORTENSEN ., DR CHAPARRO Aguillon Admitting Unavailable VALENZUELA ., GIL Consulting Unavailable AICHHOLZ, MANAGER MASSAGE DEPARTMENT MCKAYLA Primary Care Unavailable VALENZUELA ., GIL Consulting Unavailable MORTENSEN ., DR CHAPARRO Aguillon Attending Unavailable MORTENSEN ., DR CHAPARRO Aguillon Admitting Unavailable AICHHOLZ, MANAGER MASSAGE DEPARTMENT MCKAYLA Primary Care Unavailable HATTIE BRODERICK Attending Unavailable HATTIE BRODERICK Admitting Unavailable AICHHOLZ, MANAGER MASSAGE DEPARTMENT MCKAYLA Primary Care Unavailable AICHHOLZ, MANAGER MASSAGE DEPARTMENT MCKAYLA Admitting Unavailable AICHHOLZ, MANAGER MASSAGE DEPARTMENT MCKAYLA Consulting Unavailable AICHHOLZ, MANAGER MASSAGE DEPARTMENT MCKAYLA Primary Care Unavailable AICHHOLZ, MANAGER MASSAGE DEPARTMENT MCKAYLA Attending Unavailable AICHHOLZ, MANAGER MASSAGE DEPARTMENT MCKAYLA Primary Care Unavailable MISC, DR LESLIE Admitting Unavailable MISC, DR LESLIE Attending Unavailable MISC, DR LESLIE Consulting Unavailable DIAB ., MARIANO Admitting Unavailable DIAB ., MARIANO Attending Unavailable DIAB ., MARIANO Consulting Unavailable AICHHOLZ, MANAGER MASSAGE DEPARTMENT MCKAYLA Primary Care Unavailable RICCO PICKARD Consulting Unavailable AICHHOLZ, MANAGER MASSAGE DEPARTMENT MCKAYLA Admitting Unavailable AICHHOLZ, MANAGER MASSAGE DEPARTMENT MCKAYLA Primary Care Unavailable AICHHOLZ, MANAGER MASSAGE DEPARTMENT MCKAYLA Attending Unavailable AICHHOLZ, MANAGER MASSAGE DEPARTMENT MCKAYLA Consulting Unavailable DR PATRICIA VELOZ Consulting Unavailable TAMLYN ., CECILIA Attending Unavailable BJORNLYN ., CECILIA Admitting Unavailable DR PATRICIA VELOZ Consulting Unavailable AICHHOLZ, MANAGER MASSAGE DEPARTMENT MCKAYLA Primary Care Unavailable TAMLYN ., CECILIA Consulting Unavailable FESTUS ., DR CHAPARRO Aguillon Attending Unavailable FESTUS ., DR CHAPARRO Aguillon Consulting Unavailable FESTUS ., DR CHAPARRO Aguillon Admitting Unavailable AICHHOLZ, MANAGER MASSAGE DEPARTMENT MCKAYLA Primary Care Unavailable HATTIE BRODERICK Attending Unavailable HATTIE BRODERICK Consulting Unavailable HATTIE BRODERICK Admitting Unavailable AICHHOLZ, MANAGER MASSAGE DEPARTMENT MCKAYLA Primary Care Unavailable HATTIE BAUTISTA Unavailable AICHHOLZ, SAYDA MCKAYLA Admitting Unavailable AICHHOLZ, MANAGER MASSAGE DEPARTMENT MCKAYLA Attending Unavailable AICHHOLZ, MANAGER MASSAGE DEPARTMENT MCKAYLA Consulting Unavailable AICHHOLZ, MANAGER MASSAGE DEPARTMENT MCKAYLA Primary Care Unavailable Brennan PHIPPS, Ty Primary Care Provider [phone] Brennan PHIPPS, Ty Primary Care Provider [phone] Aichholz GROUP TEACHER, Mckayla Unavailable Aichholz GROUP TEACHER, Mckayla Unavailable Elbert ARAUZ Attending Unavailable SARAH VEGA Attending Unavailable DAKOTAH BRIDGES Attending Unavailable BHARAT AGUILAR Attending Unavailable AICHHOLZ, MCKAYLA Attending Unavailable RAIN SOUZA F Attending Unavailable AICHHOLZ, MCKAYLA Attending Unavailable AICHHOLZ, MCKAYLA Attending Unavailable AICHHOLZ, MCKAYLA Attending Unavailable AICHHOLZ, MCKAYLA Attending Unavailable AICHHOLZ, MCKAYLA Attending Unavailable RAIN SOUZA F Attending Unavailable LIBBYES GIANGMAD F Referring Unavailable AICHHOLZ, MCKAYLA Attending Unavailable Allergies Allergy Classification Reported Allergen(s) Allergy Type Date of Onset Reaction(s) Facility (1 source) No Known Medication Allergies; Translations: [No Known Medication Allergies] Propensity to adverse reactions (disorder) [facility] Repository Medications Current Medications Medication Drug [...] Start Date: 02/06/22 Status: Ordered HYDROcodone-acet aminophen (Maynard) 5-325 MG tablet 1 tablet 3 (three) times a day as needed for severe pain. Active take 1 tablet by vandana twice daily as needed Maynard 5-325 MG 1 tablet as needed Orally [...] / ipratropium bromide 0.167 mg/ml inhalation solution (20 sources) Anticholinergic, beta2-Adrenergic Agonist ipratropium-albutero l (Duo-Neb) 0.5-2.5 mg/3 mL nebulizer solution Daily as needed Active baclofen 10 mg oral tablet (12 sources) gamma-Aminobutyric Acid-ergic Agonist Start : 06-24 take 1 tablet by mouth in the [...] DULoxetine 30 mg Cap-EC (2 sources) Start: 022 DULoxetine 30 mg Cap-EC Refills(s) 0 Start Date: 02/06/22 Status: Ordered ergocalciferol 1.25 mg oral capsule (20 sources) Provitamin D2 Compound Start: 025 End: 025 take 1 capsule by mouth two times weekly ergocalciferol (Vitamin D2) 1.25 MG (10147 UT) capsule Indications: Vitamin D deficiency, unspecified Take 1 capsule (1.25 mg) by mouth 2 (two) times a week 24 capsule 1 10/27/2024 01/19/2025 Active Start: 04-06-2024 End: 10-27-2024 take 1 capsule by mouth every week ergocalciferol (Vitamin D2) 1.25 MG (87998 UT) capsule Indications: Vitamin D deficiency, unspecified TAKE 1 CAPSULE BY MOUTH ONE TIME PER WEEK 12 capsule 1 04/06/2024 10/27/2024 Discontinued (Reorder) fluconazole 150 mg oral tablet (11 sources) Azole Antifungal Start: 08-27-2024 fluconazole ( Diflucan) 150 MG tablet Indications: Antibiotic-induced yeast infection [...] in the morning. 0 08/17/2023 Discontinued (Reorder) sodium hypochlorite 2.5 mg/ml topical solution (2 sources) Start: 09-24-2024 HySept 0.25 % external solution APPLY TO GAUZE AND PLACE ON RIGHT LOWER LEG ULCERS, CHANGE DAILY 09/24/2024 Active insulin aspart protamine, human 70 unt/ml / insulin aspart, human 30 unt/ml injectable suspension (2 sources) Insulin Analog insulin aspart protamine-insulin aspart (NovoLOG Mix 70-30) (70-30) 100 UNIT/ML injection Inject under the skin 3 (three) times a day. 8 units with breakfast, 10 units with lunch and 12 units with supper. 0 Active NovoLog (5 sources) Insulin Analog Start: 02-06-2022 NovoLog SubCut [...] ml insulin lispro 100 unt/ml pen injector (20 sources) Insulin Analog Start: 10-06-2023 End: 04-14-2024 HumaLOG KWIKPEN 100 UNIT/ML injection Inject under the skin 10/06/2023 04/14/2024 Discontinued (Therapy completed) inject 1 [IU] by sub cutaneous injection three times daily before mealtime Insulin Lispro (HUMALOG KWIKPEN SC) Inject under the skin 3 (three) times a day before meals 8-10-12 units before meals and sliding scale Active ammonium lactate 120 mg/ml topical lotion (9 sources) Start: 07-22-2024 ammonium lacta te (Lac-Hydrin) [...] solution pen-injector (4 sources) Start: 4 End: inject 10 mg by subcutaneous injection [...] Active naloxone hydrochloride 40 mg/ml nasal spray (12 sources) Opioid Antagonist Start: 07-04-2024 naloxone (Narcan) 4 mg/0.1 mL nasal spray Administer 4 mg into affected nostril(s) if needed 07/04/2024 Active 24 hr nicotine 0.875 mg/hr transdermal system (12 sources) Cholinergic Nicotinic Agonist Start: 07-14-2024 End: [...] sites 30 patch 1 07/14/2024 Active Oxygen (20 sources) oxygen (O2) gas Inhale 2 L/min [...] 04/14/2024 Active roflumilast 0.5 mg oral tablet (20 sources) Phosphodiesterase 4 Inhibitor Start: 01-04-2024 End: 01-19-2025 take 1 tablet by mouth once daily Roflumilast 500 MCG tablet Indications: Chronic obstructive pulmonary disease, unspecified Take 1 tablet by mouth Daily 90 tablet 1 10/21/2024 01/19/2025 Active simvastatin 10 mg oral tablet (20 sources) HMG-CoA Reductase Inhibitor Start: 04-06-2024 End: [...] with adapter (3 sources) Start: 02-06-2022 Symbicort 160/ 4.5 inhalation aerosol with adapter Refill(s) 0 Start Date: 02/06/22 Status: Ordered 60 actuat tiotropium 0.0025 mg/actuat inhalation spray (7 sources) Anticholinergic Start: 02-06-2022 Spiriva Respim at [...] Active Tirzepatide (Mounjaro) 15 MG/0.5ML solution auto-injector (12 sources) Start: 07-07-2024 inject 15 mg by subcutaneous injection every week Tirzepatide (Mounjaro) 15 MG/0.5ML solution auto-injector Indications: Type 2 diabetes mellitus with other circulatory complications INJECT 15MG SUBCUTANEOUSLY ONCE A WEEK 6 mL 1 07/07/2024 Active Start: 07-07-2024 inject 15 mg by subc utaneous injection every week Tirzepatide (Mounjaro) 15 MG/0.5ML solution auto-injector Indications: Type 2 diabetes mellitus with other circulatory complications (CMS/HCC) INJECT 15MG SUBCUTANEOUSLY ONCE A WEEK 6 mL 1 07/07/2024 Active triamcinolone acetonide 1 mg/ml topical cream (2 sources) Corticosteroid triamcinolone (Kenalog) 0.1 % cream Apply 1 application topically in the morning and 1 application before bedtime. 0 Active varenicline 1 mg oral tablet (20 sources) Partial Cholinergic Nicotinic Agonist Start: 08-27-19 End: 10-28-19 take 1 tablet by mouth in the morning varenicline (Chantix) 1 MG tablet Indications: Tobacco user , Encounter for smoking cessation counseling Take 1 tablet (1 mg) by mouth in the morning and 1 tablet (1 mg) before bedtime. Take with full glass of water.. 60 tablet 1 08/27/2024 Active Start: 12-05-2023 End: 07-14-2024 Varenicline Tartrate, [...] Drug Class(es) Dates Sig (Normalized) Sig (Original) amitriptyline hydrochloride 25 mg oral tablet (20 sources) Tricyclic Antidepressant Start: 02-06-2022 End: 01-25-2025 take 1 tablet by mouth at bedtime amitriptyline (Elavil) 25 MG tablet Indications: Insomnia Take 1 tablet (25 mg) by mouth at bedtime 90 tablet 1 04/14/2024 10/27/2024 Discontinued (Reorder) aspirin 81 mg chewable tablet (20 sources) Platelet Aggregation Inhibitor, Nonsteroidal Anti-inflammatory Drug Start: 11-01-2023 End: 01-25-2025 aspirin 81 MG chewable tablet Indications: Type 2 diabetes mellitus with complication, with long-term current use of insulin ([facility]) Chew 1 tablet (81 mg) Daily 90 tablet 1 07/14/2024 10/27/2024 Discontinued (Reorder) aspirin 81 MG ch ewable tablet Chew 81 mg in the morning. 0 Active cephalexin 500 mg oral capsule (9 sources) Cephalosporin Antibacterial Start: 2024 End: 10-27-2024 cephalexin (Keflex) 500 MG capsule 2024 10/27/2024 Discontinued (Therapy completed) cetirizine hydrochloride 10 mg oral tablet (20 sources) Histamine-1 Receptor Antagonist Start: 11-01-2023 End: 01-25-2025 take 1 tablet by mouth once daily cetirizine (ZyrTEC) 10 MG tablet Indications: Non-seasonal allergic rhinitis, unspecified trigger Take 1 tablet (10 mg) by mouth Daily 90 tablet 1 07/14/2024 10/27/2024 Discontinued (Reorder) take 1 tablet by mouth in the mo rning cetirizine (ZyrTEC) 10 MG tablet Take 10 mg by mouth in the morning. 0 Active dapagliflozin 10 mg oral tablet (20 sources) Sodium-Glucose Cotransporter 2 Inhibitor Start: 01-17-2024 End: 01-25-2025 take 1 tablet by mouth once daily dapagliflozin (Farxiga) 10 MG Indications: Type 2 diabetes mellitus with unspecified complications Take 1 tablet (10 mg) by mouth Daily 90 tablet 1 04/14/2024 10/27/2024 Discontinued (Reorder) Start: 08-14-2023 End: 11-12-2023 take 1 tablet by mouth in the morning dapagliflozin (Farxiga) 10 MG Indications: Type 2 diabetes mellitus with unspecified complications (CMS/HCC) Take 1 tablet (10 mg) by mouth in the morning. 90 tablet 1 08/14/2023 11/12/2023 Active DULoxetine 60 mg delayed release oral capsule (20 sources) Serotonin and Norepinephrine Reuptake Inhibitor Start: 11-01-2023 End: 01-25-2025 take 1 capsule by mouth in the morning DULoxetine (Cymbalta) [address] capsule Indications: Anxiety and depression (CMS/HCC) Take 1 capsule (60 mg) by mouth in the morning and 1 capsule (60 mg) before bedtime. Do not crush or chew.. 180 capsule 1 08/27/2024 10/27/2024 Discontinued (Reorder) Start: 07-23-2023 End: 08-22-2023 take [...] 0 Start Date: 02/06/22 Status: Ordered furosemide 40 mg oral tablet (20 sources) Loop Diuretic Start: 09-22-2024 End: 01-25-2025 take 1 tablet by mouth once daily furosemide (Lasix) 40 MG tablet Indications: Bilateral lower extremity edema Take 1 tablet (40 mg) by mouth Daily 90 tablet 1 10/27/2024 10/27/2024 Discontinued (Reorder) Start: 07-07-2024 End: 01-25-2025 take 1 tablet by mouth once daily as needed for edema furosemide (Lasix) 20 MG tablet Indications: Bilateral lower extremity edema Take 1 tablet (20 mg) by mouth Daily as needed (edema) Take in the afternoon as needed 90 tablet 1 10/27/2024 10/27/2024 Discontinued (Reorder) Start: 04-06-2024 End: 07-05-2024 take 1 tablet [...] Active hydrALAZINE hydrochloride 25 mg oral tablet (20 sources) Arteriolar Vasodilator Start: 09-13-2023 End: 01-25-2025 take 1 tablet by mouth in the morning hydrALAZINE (Apresoline) 25 MG tablet Indications: Primary hypertension (CMS/HCC) Take 1 tablet (25 mg) by mouth in the morning and 1 tablet (25 mg) before bedtime. 180 tablet 1 04/14/2024 10/27/2024 Discontinued (Reorder) 3 ml liraglutide 6 mg/ml pen injector (6 sources) GLP-1 Receptor Agonist End: 07-14-2024 liraglutide (Victoza) 18 MG/3ML injection Inject under the skin Daily 07/14/2024 Discontinued (Therapy completed) lisinopril 20 mg oral tablet (20 sources) Angiotensin Converting Enzyme Inhibitor Start: 02-06-2022 End: 01-25-2025 take 1 tablet by mouth once daily lisinopril 20 MG tablet Indications: Primary hypertension (CMS/HCC) Take 1 tablet (20 mg) by mouth Daily 90 tablet 1 08/27/2024 10/27/2024 Discontinued (Reorder) nortriptyline 50 mg oral capsule (16 sources) Tricyclic Antidepressant End: 08-27-2024 take 1 capsule by mouth once daily nortriptyline (Pamelor) 50 MG capsule Take 1 capsule by mouth Daily 08/27/2024 Discontinued (Therapy completed) omeprazole 20 mg delayed release oral capsule (20 sources) Proton Pump Inhibitor Start: 12-25-2023 End: 01-25-2025 take 1 capsule by mouth before mealtime omeprazole (PriLOSEC) [address] capsule Indications: Gastro-esophageal reflux disease without esophagitis Take 1 capsule (20 mg) by mouth in the morning. Take before meals. 90 capsule 1 08/27/2024 10/27/2024 Discontinued (Reorder) take 1 capsule by mouth before m ealtime omeprazole (PriLOSEC) [address] capsule Take 20 mg by mouth in the morning. Take before meals. Do not crush or chew. . 0 Active potassium chloride 10 meq extended release oral capsule (20 sources) Start: 02-06-2022 End: 01-25-2025 take 1 capsule by mouth once daily in the morning potassium chloride ER (Micro-K) 10 MEQ ER capsule Take 1 capsule (10 mEq) by mouth Daily Take 1 capsule (10 mEq) by mouth in the morning. 90 capsule 1 10/27/2024 10/27/2024 Discontinued (Reorder) take 1 tablet by vandana th every twenty-four hours Potassium Chloride ER 10 MEQ 1 tablet with food Orally Once a day Active sulfamethoxazole 800 mg / trimethoprim 160 mg oral tablet (8 sources) Dihydrofolate Reductase Inhibitor Antibacterial, Sulfonamide Antimicrobial Start: 08-27-2024 End: 10-27-2024 sulfamethoxazole-trimethopri m (Bactrim DS) 800-160 MG per tablet 08/27/2024 10/27/2024 Discontinued (Therapy completed) ubrogepant 100 mg oral tablet (12 sources) End: 07-14-2024 take 1 tablet by mouth every twenty-f our hours as needed Ubrogepant (Ubrelvy) 100 MG [...] Onset: 07-10-2023 02-06-2022 Chronic Cancer of cervix (20 sources) Malignant tumor of cervix; Translations: [Malignant neoplasm of cervix uteri, unspecified] Onset: 09-17-2023 09-17-2023 Chronic Chronic kidney disease (5 sources) Chronic kidney disease; Translations: [Chronic kidney disease, unspecified] Onset: 02-20-2022 Resolved: 03-08-2022 Chronic Chronic obstructive pulmonary disease and bronchiectasis (20 sources) Pulmonary emphysema; Translations: [Chronic obstructive pulmonary disease with (acute) exacerbation] Onset: 10-09-2022 02-06-2022 Chronic Chronic ulcer of skin (12 sources) Non-pressure chronic ulcer of other part of right lower leg limited to breakdown of skin; Translations: [Non-pressure chronic ulcer of other part of left lower leg limited to breakdown of skin] Onset: 09-01-2022 08-27-2024 Chronic Congestive heart failure; nonhypertensive (15 sources) Chronic diastolic heart failure; Translations: [Chronic diastolic (congestive) heart failure] Onset: 08-08-2024 08-27-2024 Chronic Diabetes mellitus with complications (20 sources) Disorder of kidney due to diabetes mellitus; Translations: [Type 2 diabetes mellitus with diabetic chronic kidney disease] Onset: 02-20-2022 Resolved: 03-08-2022 Chronic Diabetes mellitus without complication (11 sources) Type 2 diabetes mellitus; Translations: [Type [...] 02-06-2022 Chronic Gout and other crystal arthropathies (20 sources) Gout; Translations: [Gout, unspecified] Onset: 10-25-2017 [...] COLITIS UNS] Onset: 10-09-2022 Episodic Nutritional deficiencies (9 sources) Vitamin D deficiency; Translations: [Vitamin D deficiency, unspecified] Onset: 10-27-2024 05-27-2024 Chronic Nutritional deficiencies (11 sources) Vitamin deficiency; Translations: [Vitamin deficiency, unspecified] Onset: 08-27-2024 08-27-2024 Episodic Osteoarthritis (20 sources) Arthritis; Translations: [Unspecified osteoarthritis, unspecified site] Onset: 04-20-2022 02-06-2022 Chronic Other aftercare (1 source) Other fpc (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 therapy; Translations: [[facility] CURRENT DRUG THERAPY] Onset: 12-05-2022 Episodic Other aftercare (1 source) intermediate card tender (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; Translations: [OPERATING ROOM TECH CURRENT USE OF ASPIRIN] Onset: 12-05-2022 Episodic Other aftercare (3 sources) 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; Translations: [[facility] CURRENT USE OF INSULIN] Onset: 12-05-2022 Episodic Other aftercare (4 sources) Long-term current use of insulin; Translations: [[facility] (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] 05-27-2024 Episodic Other aftercare (9 sources) Long-term current use of inhaled steroid; Translations: [[facility] (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 inhaled steroids] Onset: 08-27-2024 08-27-2024 Episodic Other and ill-defined heart disease (20 sources) Cardiomegaly; Translations: [Cardiomegaly] Onset: 10-25-2017 09-17-2023 Chronic Other and ill-defined heart disease (1 source) Cardiomegaly; Translations: [Cardiomegaly] Onset: 11-14-2023 Chronic Other and unspecified benign neoplasm (1 source) Benign lipomatous tumor; Translations: [Benign lipomatous neoplasm of other sites] Onset: 06-11-2024 Episodic Other bone disease and musculoskeletal [...] Chronic Other diseases of veins and lymphatics (6 sources) Chronic peripheral venous hypertension; Translations: [Chronic venous hypertension (idiopathic) with ulcer [...] nutritional; endocrine; and metabolic disorders (13 sources) Body mass index 40+ - severely [...] nutritional; endocrine; and metabolic disorders (13 sources) Obesity caused by energy imbalance; Translations: [...] Onset: 09-01-2022 09-17-2023 Chronic Pulmonary heart disease (20 sources) Pulmonary hypertension; Translations: [Pulmonary hypertension, unspecified] Onset: 09-17-2023 09-17-2023 Chronic Residual codes; unclassified (3 sources) Obstructive sleep apnea (adult) (pediatric); Translations: [OBSTRUCTIVE SLEEP APNEA] Onset: 10-09-2022 Chronic Residual codes; unclassified (20 sources) Obstructive sleep apnea syndrome; Translations: [Obstructive [...] 09-01-2022 Episodic Residual codes; unclassified (20 sources) Bilateral lower limb edema; Translations: [Localized edema] Onset: 07-10-2023 07-10-2023 Episodic Residual codes; unclassified (20 sources) Insomnia; Translations: [Insomnia, unspecified] Onset: 09-17-2023 09-17-2023 Episodic Substance-related disorders (11 sources) Nicotine dependence; Translations: [Nicotine dependence, unspecified, uncomplicated] Onset: 02-06-2022 Chronic Comment on above: Added secondary to d ocumentation in Social History. Unclassified (1 source) [facility] INJECT NONINSULN ANTIDIAB; Translations: [[facility] INJECT NONINSULN ANTIDIAB] Onset: 12-05-2022 Unclassified (3 sources) CONTACT W/AND (SUSP) EXPOS COVID-19; Translations: [CONTACT W/AND (SUSP) EXPOS COVID-19] Onset: 07-08-2022 Unclassified (3 sources) LOW BACK PAIN, UNSPECIFIED; Translations: [LOW BACK PAIN, UNSPECIFIED] Onset: 12-27-2021 Unclassified (1 source) Obesity, class 3; Translations: [Obesity, class 3] Onset: 11-14-2023 Varicose veins of lower extremity (18 sources) Varicose veins of right lower extremity [...] 02-06-2022 Resolved: 03-08-2022 Episodic Headache; including migraine (20 sources) Headache; Translations: [Headache disorder] Onset: 01-17-2024 02-06-2022 Episodic Immunizations and screening for infectious disease (20 sources) Encounter for screening for other infectious and parasitic diseases; Translations: [Anti-nuclear factor positive] Onset: 09-16-2020 09-17-2023 Episodic Mood disorders (20 sources) Mood disorders; Translations: [DEPRESSION UNSPECIFIED] Onset: 12-05-2022 01-17-2024 Other and unspecified benign neoplasm (13 sources) Myelolipoma of adrenal gland; Translations: [Benign lipomatous neoplasm of other sites] Onset: 07-14-2024 06-11-2024 Episodic Other connective tissue disease (4 sources) Other muscle spasm; Translations: [OTHER MUSCLE SPASM] Onset: 01-19-2022 Episodic Other diseases of veins and lymphatics (20 sources) Vascular insufficiency; Translations: [Venous insufficiency (chronic) (peripheral)] Onset: 09-17-2023 09-17-2023 Episodic Other hematologic conditions (1 source) Secondary polycythemia Onset: 03-08-2022 Resolved: 03-08-2022 Episodic Other lower respiratory disease (2 sources) Shortness of breath; Translations: [Shortness of breath] Onset: 11-14-2023 Episodic Other nervous system disorders (20 sources) Reduced mobility; Translations: [Other abnormalities of gait and mobility] Onset: 09-17-2023 09-17-2023 Episodic Other non-traumatic joint disorders (1 source) Effusion, left knee; Translations: [EFFUSION LEFT KNEE] Onset: 07-26-2022 Episodic Other non-traumatic joint disorders (1 source) Pain in left knee; Translations: [PAIN IN LEFT KNEE] Onset: 07-26-2022 Episodic Other non-traumatic joint disorders (20 sources) Pain in right knee; Translations: [Pain in joint, lower leg] Onset: 09-17-2023 09-17-2023 Episodic Other nutritional; endocrine; and metabolic disorders (20 sources) Severe obesity; Translations: [Morbid (severe) obesity due to excess calories] Onset: 07-10-2023 Resolved: 04-14-2024 07-10-2023 Chronic Other nutritional; endocrine; and metabolic disorders (20 sources) Excess panniculus of abdomen; Translations: [Localized adiposity] Onset: 10-25-2017 Resolved: 08-27-2024 09-17-2023 Chronic Other skin disorders (1 source) Nail dystrophy; Translations: [NAIL DYSTROPHY] Onset: 09-01-2022 Episodic Other skin disorders (1 source) Corns and callosities; Translations: [CORNS AND CALLOSITIES] Onset: 09-01-2022 Episodic Other skin disorders (1 source) Xerosis cutis; Translations: [XEROSIS CUTIS] Onset: 09-01-2022 Episodic Other skin disorders (20 sources) Hyperpigmentation of skin; Translations: [Disorder of pigmentation, unspecified] Onset: 04-14-2024 04-14-2024 Episodic Otitis media and related conditions (20 sources) Acute suppurative otitis media without spontaneous rupture of ear drum; Translations: [Acute suppurative otitis media without spontaneous rupture of ear drum, left ear] Onset: 01-17-2024 Resolved: 07-14-2024 01-17-2024 Episodic Pancreatic disorders (not diabetes) (20 sources) Acute pancreatitis without necrosis or infection, unspecified; Translations: [Pancreatitis] Onset: 10-09-2022 09-17-2023 Episodic Pneumonia (except that caused by tuberculosis or sexually transmitted disease) (20 sources) Pneumonia; Translations: [Pneumonia, unspecified organism] Onset: 09-17-2023 Resolved: 10-27-2024 09-17-2023 Episodic Residual codes; unclassified (20 sources) Edema; Translations: [Edema, unspecified] Onset: 07-10-2023 Resolved: 07-10-2023 08-14-2023 Episodic Residual codes; unclassified (20 sources) Tobacco user; Translations: [Tobacco use] Onset: 09-17-2023 Resolved: 10-27-2024 09-17-2023 Episodic Residual codes; unclassified (20 sources) Edema of lower extremity; Translations: [Localized edema] Onset: 09-17-2023 Resolved: 09-17-2023 09-17-2023 Episodic Skin and subcutaneous tissue infections (5 sources) Cellulitis of right lower limb; Translations: [Cutaneous abscess of left axilla] Onset: 07-18-2022 Episodic Spondylosis; intervertebral disc disorders; other back problems (20 sources) Lumbar radiculopathy; Translations: [Radiculopathy, lumbar region] [...] [LOW BACK PAIN, UNSPECIFIED] Onset: 12-24-2021 Unclassified (4 sources) Patient encounter status 08-27-2024 Unclassified (1 source) Obesity, class 3; Translations: [Obesity, class 3] Onset: 08-08-2024 Results Test Name Value Interpretation Reference Range Facility 36on 10-21-2024 36 Regarding lab results from 10/08/2024: MD Mickie Merritt MA Lipids, ALT AST, and BMP are normal. HbA1c was not performed. Continue current management. LM on patient's VM. Normal [facility] Glucose (Bld) [Mass/Vol]Orde red By: Mica Sauceda on 10-08-2024 Glucose Blood, POC 97 mg/dL [facility] - Hematology and Cell countson 10-08-2024 HbA1c (Bld) [Mass fraction] 7.4 % [facility] No Panel InformationOrdered By: Mica Sauceda on 10-08-[address]24 [facility] UA (CLEAN/CATCH) MICROSC OPIC IF INDICATEon 10-08-2024 BILIRUBIN URINE Negative NEGATIVE [facility] BLOOD URINE Negative NEGATIVE [facility] Clarity (U) CLEAR CLEAR [facility] Color (U) YELLOW YELLOW [facility] GLUCOSE URINE UA Negative NEGATIVE mg/dL [facility] Interpretation and review of laboratory results Abnormal [facility] Healthcare Ketones Ql (U) Negative NEGATIVE mg/dL [facility] Leukocyte esterase Test strip Ql (U) Negative NEGATIVE [facility] Healthcare NITRITE URINE Negative NEGATIVE [facility] Healthcare pH (U) 5.5 [pH] 5.0 - 9.0 [facility] Protein (U) [Mass/Vol] 30 mg/dL Abnormal NEG/TRACE NO [facility] SPECIFIC GRAVITY URINE >=1.030 Abnormal 1.005 - 1.025 [facility] URINE MICROSCOPIC INDICATED YES [facility] UROBILINOGEN URINE 1.0 EU/dL 0.2 - 1.0 EU/dL [facility] ALL CBC WITH AUTO DIFFon BASOPHILS ABSOLUTE AUTO 0.1 N [facility] Basophils/100 WBC (Bld) 0.5 % 0.2 - 2.0 % [facility] Eosinophils/100 WBC (Bld) 1.9 % 0.9 - 7.0 % [facility] Erythrocyte distribution width (RBC) [Ratio] 14.6 % 11.0 - 15.0 % [facility] Hematocrit (Bld) [Volume fraction] 50.9 % High 36.0 - 48.0 % [facility] Hemoglobin (Bld) [Mass/Vol] 16.1 g/dL High 12.0 - 16.0 g/dL [facility] IMMATURE GRANULOCYTES ABS AUTO 0.04 High [facility] Immature granulocytes/100 WBC (Bld) 0.3 % 0.0 - 0.5 % [facility] Interpretation and review of laboratory results Abnormal [facility] LYMPHOCYTES ABSOLUTE AUTO 3.2 [facility] Lymphocytes/100 WBC (Bld) 25.1 % 20.5 - 60.0 % [facility] MCH (RBC) [Entitic mass] 29.2 pg 26.7 - 34.0 pg [facility] MCHC (RBC) [Mass/Vol] 31.6 g/dL 29.9 - 35.2 g/dL [facility] MCV (RBC) [Entitic vol] 92.2 fL 81.0 - 99.0 fL [facility] MONOCYTES ABSOLUTE AUTO 0.7 N [facility] Monocytes/100 WBC (Bld) 5.2 % 1.7 - 12.0 % [facility] NEUTROPHILS ABSOLUTE AUTO 8.6 High [facility] Neutrophils/100 WBC (Bld) 67 % 43.0 - 75.0 % [facility] Platelet mean volume (Bld) [Entitic vol] 12.8 fL 9.5 - 13.5 fL [facility] EO # 0.2 [facility] TB PLT 122 Low [facility] RBC 5.52 High [facility] WBC 12.8 High [facility] Office Visiton 08-08-2024 Follow-up visit [id number] GilbertoMitzi Gilberto 1970 F Date Provider Department Center 08/08/2024 [id number] BRIDGES Family History Problem Relation Age of Onset Heart attack Paternal Grandmother Family Status - Relation Status Age at Paternal Grandmother Level of Service:72761 [place] OFFICE/OUTPATIENT ESTABLISHED MOD MDM 30 MIN Reason for Visit and Comments: Congestive Heart Failure [127] - Denies chest pain, SOB, and palpitations. Hypertension [677981] Hyperlipidemia [182] LVH [Other] Edema [[id number]] - Denies worsening edema. She sees wound care for RLE ulcer. She was seeing the vein specialists here in town but they are moving to [place] in a few weeks. Normal [facility] Glucose (Bld) [Mass/Vol]Orde red By: Mica Sauceda on 05-27-2024 Glucose Blood, POC 158 mg/dL [facility] - Hematology and Cell countson 05-27-2024 HbA1c (Bld) [Mass fraction] 9.2 % [facility] No Panel InformationOrdered By: Mica Sauceda on 05-27-2024 [facility] CREATININEon 05-12-2024 Creatinine [Mass/Vol] 0.92 mg/dL 0.55 - 1.02 mg/dL [facility] GFR/1.73 sq M.predicted CKD-EPI (S/P/Bld) [Vol rate/Area] >60 >=60 mL/min/1.73m 2 [facility] EGFR-NON AF MOSOTHO >60 >=60 mL/min/1.73m [address] [facility] Office Visiton 11-14-2023 Follow-up visit [id number] Mitzi Macias 1970 F Date Provider Department Center 11/14/2023 BHARAT NICOLE [facility] Family History Problem Relation Age of Onset Heart attack Paternal Grandmother Family Status - Relation Status Age at Paternal Grandmother Level of Service:04945 [place] OFFICE/OUTPATIENT NEW LOW MDM 30 MINUTES Normal [facility] CBC AUTO DIFFon 12-06-2022 BASO # 0.0 103/ul Normal 0.0-0.1 [facility] [place] [facility] Comment on above: Performed By: #### C BC #### [facility] [address] [address] [address] Ashlie Hills Basophils/100 WBC (Bld) 0.1 % Critically low 0.2-2.0 [facility] [place] [facility] Comment on above: Performed By: #### C BC #### [facility] [address] [address] [address] Ashlie Hills EO # 0.0 103/ul Normal 0.0-0.7 [facility] [place] [facility] Comment on above: Performed By: #### C BC #### [facility] [address] [place] [address] Dr. Ashlie Hills Eosinophils/100 WBC (Bld) 0.0 % Critically low 0.9-7.0 [facility] [place] [facility] Comment on above: Performed By: #### C BC #### [facility] [address] [place] [address] Dr. Ashlie Hills Erythrocyte distribution width (RBC) [Ratio] 14.9 % Normal 11.0-15.0 [facility] [place] [facility] Comment on above: Performed By: #### C BC #### [facility] [address] [place] [address] Dr. Ashlie Hills Hematocrit (Bld) [Volume fraction] 46.2 % Normal 36.0-48.0 [facility] [place] [facility] Comment on above: Performed By: #### C BC #### [facility] [address] [place] [address] Dr. Ashlie Hills Hemoglobin (Bld) [Mass/Vol] 14.7 g/dL Normal 12.0-16.0 [facility] [place] [facility] Comment on above: Performed By: #### C BC #### [facility] [address] [place] [address] Dr. Ashlie Hills IG # 0.06 10e3/ul Critically high 0.00-0.03 [facility] Comment on above: Performed By: #### C BC #### [facility] [address] [place] [address] Dr. Ashlie Hills IG % 0.4 % Normal 0.0-0.5 [facility] Comment on above: Performed By: #### C BC #### [facility] [address] [place] [address] Dr. Ashlie Hills LYMPH # 1.3 103/ul Normal 1.2-3.8 [facility] Comment on above: Performed By: #### C BC #### [facility] [address] [place] [address] Dr. Ashlie Hills Lymphocytes/100 WBC (Bld) 9.4 % Critically low 20.5-60.0 [facility] [place] [facility] Comment on above: Performed By: #### C BC #### [facility] [address] [place] [address] Dr. Ashlie Hills MANUAL DIFF REQ NO Normal [facility] Comment on above: Performed By: #### C BC #### [facility] [address] [place] [address] Dr. Ashlie Hills MCH (RBC) [Entitic mass] 28.4 pg Normal 26.7-34.0 [facility] [place] [facility] Comment on above: Performed By: #### C BC #### [facility] [address] [place] [address] Dr. Ashlie Hills MCHC (RBC) [Mass/Vol] 31.8 g/dL Normal 29.9-35.2 [facility] [place] [facility] Comment on above: Performed By: #### C BC #### [facility] [address] [place] [address] Dr. Ashlie Hills MCV (RBC) [Entitic vol] 89.4 fL Normal 81.0-99.0 [facility] Comment on above: Performed By: #### C BC #### [facility] [address] [place] [address] Dr. Ashlie Hills MONO # 0.5 103/ul Normal 0.3-0.8 [facility] [place] [facility] Comment on above: Performed By: #### C BC #### [facility] [address] [place] [address] Dr. Ashlie Hills Monocytes/100 WBC (Bld) 3.4 % Normal 1.7-12.0 [facility] Comment on above: Performed By: #### C BC #### [facility] [address] [place] [address] Dr. Ashlie Hills NEUT # 11.8 103/ul Critically high 1.4-6.5 [facility] Comment on above: Performed By: #### C BC #### [facility] [address] [place] [address] Dr. Ashlie Hills Neutrophils/100 WBC (Bld) 86.7 % Critically high 43.0-75.0 [facility] [place] [facility] Comment on above: Performed By: #### C BC #### [facility] [address] [address] [address] Ashlie Hills Platelet mean volume (Bld) [Entitic vol] 12.6 fL Normal 9.5-13.5 [facility] [place] [facility] Comment on above: Performed By: #### C BC #### [facility] [address] [address] [address] Ashlie Hills PLT 133 103/ul Critically low 150-450 [facility] Comment on above: Performed By: #### C BC #### [facility] [address] [address] [address] Ashlie Hills RBC 5.17 106/ul Normal 4.20-5.40 [facility] [place] [facility] Comment on above: Performed By: #### C BC #### [facility] [address] [place] [address] Dr. Ashlie Hills WBC 13.6 103/ul Critically high 4.0-11.0 [facility] Comment on above: Performed By: #### C BC #### [facility] [address] [place] [address] Dr. Ashlie Hills MAGNESIUMon 12-06-2022 Magnesium [Mass/Vol] 2.2 mg/dL Normal 1.8-2.4 [facility] [place] [facility] Comment on above: Performed By: #### I NFLUAB #### [facility] [address] [place] [address] Dr. Ashlie Hills POINT OF CARE GLUCOSEon 11-08 Glucose [Mass/Vol] 340 mg/dL Critically high 74-106 [facility] Comment on above: Performed By: #### P OCGLUC #### [facility] [address] [place] [address] Dr. Ashlie Hills Glucose [Mass/Vol] 276 mg/dL Critically high 74-106 [facility] Comment on above: Performed By: #### C BC #### [facility] [address] [place] [address] Dr. Ashlie Hills Glucose [Mass/Vol] 333 mg/dL Critically high 74-106 [facility] Comment on above: Performed By: #### C BC #### [facility] [address] [address] [address] Ashlie Hills PROF CHEM 8 (BAS METB)on Anion gap [Moles/Vol] 10.9 mmol/L Normal [facility] Comment on above: Performed By: #### I NFLUAB #### [facility] [address] [place] [address] Dr. Ashlie Hills Calcium [Mass/Vol] 9.3 mg/dL Normal 8.5-10.1 [facility] Comment on above: Performed By: #### I NFLUAB #### [facility] [address] [place] [address] Dr. Ashlie Hills Chloride [Moles/Vol] 103 mmol/L Normal 98-107 [facility] [place] [facility] Comment on above: Performed By: #### I NFLUAB #### [facility] [address] [place] [address] Dr. Ashlie Hills CO2 [Moles/Vol] 31.2 mmol/L Normal 21.0-32.0 [facility] Comment on above: Performed By: #### I NFLUAB #### [facility] [address] [place] [address] Dr. Ashlie Hills Creatinine [Mass/Vol] 0.96 mg/dL Normal 0.55-1.02 [facility] [place] [facility] Comment on above: Performed By: #### I NFLUAB #### [facility] [address] [place] [address] Dr. Ashlie Hills EGFR-AF MOSOTHO >60 Normal >=60 [facility] Comment on above: Performed By: #### I NFLUAB #### [facility] [address] [place] [address] Dr. Ashlie Hills EGFR-NON AF MOSOTHO >60 Normal >=60 [facility] [place] [facility] Comment on above: Performed By: #### I NFLUAB #### [facility] [address] [place] [address] Dr. Ashlie Hills Glucose [Mass/Vol] 288 mg/dL Critically high 74-106 [facility] Comment on above: Performed By: #### I NFLUAB #### [facility] [address] [address] [address] Ashlie Hills Potassium [Moles/Vol] 5.1 mmol/L Normal 3.5-5.1 [facility] [place] [facility] Comment on above: Performed By: #### I NFLUAB #### [facility] [address] [place] [address] Dr. Ashlie Hills Sodium [Moles/Vol] 140 mmol/L Normal 136-145 [facility] Comment on above: Performed By: #### I NFLUAB #### [facility] [address] [place] [address] Dr. Ashlie Hills Urea nitrogen [Mass/Vol] 30.0 mg/dL Critically high 7.0-18.0 [facility] [place] [facility] Comment on above: Performed By: #### I NFLUAB #### [facility] [address] [place] [address] Dr. Ashlie Hills Urea nitrogen/Creatinine [Mass ratio] 31.2 mg/mg Normal [facility] [place] [facility] Comment on above: Performed By: #### I NFLUAB #### [facility] [address] [place] [address] Dr. Ashlie Hills CBC AUTO DIFFon 12-05-2022 BASO # 0.0 103/ul Normal 0.0-0.1 [facility] [place] [facility] Comment on above: Performed By: #### C BC #### [facility] [address] [place] [address] Dr. Ashlie Hills Basophils/100 WBC (Bld) 0.4 % Normal 0.2-2.0 [facility] Comment on above: Performed By: #### C BC #### [facility] [address] [place] [address] Dr. Ashlie Hills EO # 0.0 103/ul Normal 0.0-0.7 [facility] [place] [facility] Comment on above: Performed By: #### C BC #### [facility] [address] [place] [address] Dr. Ashlie Hills Eosinophils/100 WBC (Bld) 0.0 % Critically low 0.9-7.0 [facility] [place] [facility] Comment on above: Performed By: #### C BC #### [facility] [address] [address] [address] Ashlie Hills Erythrocyte distribution width (RBC) [Ratio] 14.8 % Normal 11.0-15.0 [facility] [place] [facility] Comment on above: Performed By: #### C BC #### [facility] [address] [address] [address] Ashlie Hills Hematocrit (Bld) [Volume fraction] 49.9 % Critically high 36.0-48.0 [facility] [place] [facility] Comment on above: Performed By: #### C BC #### [facility] [address] [place] [address] Dr. Ashlie Hills Hemoglobin (Bld) [Mass/Vol] 15.7 g/dL Normal 12.0-16.0 [facility] [place] [facility] Comment on above: Performed By: #### C BC #### [facility] [address] [place] [address] Dr. Ashlie Hills IG # 0.04 10e3/ul Critically high 0.00-0.03 [facility] Comment on above: Performed By: #### C BC #### [facility] [address] [place] [address] Dr. Ashlie Hills IG % 0.5 % Normal 0.0-0.5 [facility] [place] [facility] Comment on above: Performed By: #### C BC #### [facility] [address] [place] [address] Dr. Ashlie Hills LYMPH # 1.1 103/ul Critically low 1.2-3.8 [facility] Comment on above: Performed By: #### C BC #### [facility] [address] [place] [address] Dr. Ashlie Hills Lymphocytes/100 WBC (Bld) 12.7 % Critically low 20.5-60.0 [facility] [place] [facility] Comment on above: Performed By: #### C BC #### [facility] [address] [place] [address] Dr. Ashlie Hills MANUAL DIFF REQ NO Normal [facility] Comment on above: Performed By: #### C BC #### [facility] [address] [address] [address] Ashlie Hills MCH (RBC) [Entitic mass] 28.1 pg Normal 26.7-34.0 [facility] [place] [facility] Comment on above: Performed By: #### C BC #### [facility] [address] [address] [address] Ashlie Hills MCHC (RBC) [Mass/Vol] 31.5 g/dL Normal 29.9-35.2 [facility] [place] [facility] Comment on above: Performed By: #### C BC #### [facility] [address] [address] [address] Ashlie Hills MCV (RBC) [Entitic vol] 89.3 fL Normal 81.0-99.0 [facility] Comment on above: Performed By: #### C BC #### [facility] [address] [place] [address] Dr. Ashlie Hills MONO # 0.1 103/ul Critically low 0.3-0.8 [facility] Comment on above: Performed By: #### C BC #### [facility] [address] [address] [address] Ashlie Hills Monocytes/100 WBC (Bld) 1.3 % Critically low 1.7-12.0 [facility] [place] [facility] Comment on above: Performed By: #### C BC #### [facility] [address] [address] [address] Ashlie Hills NEUT # 7.2 103/ul Critically high 1.4-6.5 [facility] Comment on above: Performed By: #### C BC #### [facility] [address] [place] [address] Dr. Ashlie Hills Neutrophils/100 WBC (Bld) 85.1 % Critically high 43.0-75.0 [facility] [place] [facility] Comment on above: Performed By: #### C BC #### [facility] [address] [address] [address] Ashlie Hills Platelet mean volume (Bld) [Entitic vol] 12.2 fL Normal 9.5-13.5 [facility] [place] [facility] Comment on above: Performed By: #### C BC #### [facility] [address], [place] [address] [address] Ashlie Hills PLT 116 103/ul Critically low 150-450 [facility] Comment on above: Performed By: #### C BC #### [facility] [address], [place] [address] Dr[address] Ashlie Hills RBC 5.59 106/ul Critically high 4.20-5.40 [facility] Comment on above: Performed By: #### C BC #### [facility] [address], [place] [address] Dr[address] Ashlie Hills WBC 8.5 103/ul Normal 4.0-11.0 [facility] [place] [facility] Comment on above: Performed By: #### C BC #### [facility] [address], [place] [address] Dr[address] Ashlie Hills CTA CHEST WO W [...] by: HATTIE GOFF Date: 2022-12-05 01:52 Normal [facility] [place] [facility] MAGNESIUMon 12-05-2022 Magnesium [Mass/Vol] 2.1 mg/dL Normal 1.8-2.4 [facility] [place] [facility] Comment on above: Performed By: #### P OCGLUC #### [facility] [address] [address] [address] Ashlie Hills POINT OF CARE GLUCOSEon 11-08 Glucose [Mass/Vol] 293 mg/dL Critically high [facility]106 [facility] Comment on above: Performed By: #### P OCGLUC #### [facility] [address] [address] [address] Ashlie [place] Glucose [Mass/Vol] 269 mg/dL Critically high [facility]106 [facility] Comment on above: Performed By: #### P OCGLUC #### [facility] [address] [address] [address] Ashlie Hills Glucose [Mass/Vol] 223 mg/dL Critically high [address] [place] [address] Comment on above: Performed By: #### C VDAGS #### [facility] [address] [address] [address] Ashlie Hills PROF CHEM 8 (BAS METB)on Anion gap [Moles/Vol] 11.6 mmol/L Normal [facility] Comment on above: Performed By: #### P OCGLUC #### [facility] [address] [address] [address] Ashlie Hills Calcium [Mass/Vol] 9.2 mg/dL Normal 8.5-10.1 [facility] Comment on above: Performed By: #### P OCGLUC #### [facility] [address] [address] [address] Ashlie Hills Chloride [Moles/Vol] 102 mmol/L Normal 98-107 [facility] [place] [facility] Comment on above: Performed By: #### P OCGLUC #### [facility] [address] [address] [address] Ashlie [place] CO2 [Moles/Vol] 28.7 mmol/L Normal 21.0-32.0 [facility] Comment on above: Performed By: #### P OCGLUC #### [facility] [address] [place] [address] Dr[address] Ashlie Hills Creatinine [Mass/Vol] 1.04 mg/dL Critically high 0.55-1.02 [facility] Comment on above: Performed By: #### P OCGLUC #### [facility] [address] [address] [address] Ashlie Hills EGFR-AF MOSOTHO >60 Normal >=60 [facility] Comment on above: Performed By: #### P OCGLUC #### [facility] [address] [address] [address] Ashlie Hills EGFR-NON AF MOSOTHO 56 mL/min/1.73m2 Critically low >=60 [facility] Comment on above: Performed By: #### P OCGLUC #### [facility] [address] [address] [address] Ashlie Hills Glucose [Mass/Vol] 231 mg/dL Critically high 74-106 [facility] Comment on above: Performed By: #### P OCGLUC #### [facility] [address] [address] [address] Ashlie Hills Potassium [Moles/Vol] 4.3 mmol/L Normal 3.5-5.1 [facility] Comment on above: Performed By: #### P OCGLUC #### [facility] [address] [address] [address] Ashlie Hills Sodium [Moles/Vol] 138 mmol/L Normal 136-145 [facility] Comment on above: Performed By: #### P OCGLUC #### [facility] [address] [address] [address] Ashlie Hills Urea nitrogen [Mass/Vol] 17.0 mg/dL Normal 7.0-18.0 [facility] Comment on above: Performed By: #### P OCGLUC #### [facility] [address] [place] [address] Dr. Ashlie Hills Urea nitrogen/Creatinine [Mass ratio] 16.3 mg/mg Normal The [facility] Comment on above: Performed By: #### P OCGLUC #### [facility] [address] [place] [address] Dr. Ashlie Hills RESPIRATORY PANEL PLUSon Adenovirus Not detected Normal NOT DETECTED [facility] Comment on above: Performed By: #### C VDAGS #### [facility] [address] [place] [address] Dr. Ashlie Hills B. Parapertusis Not detected Normal NOT DETECTED [facility] Comment on above: Performed By: #### C VDAGS #### [facility] [address] [place] [address] Dr. Ashlie Shaffer. Pertussis Not detected Normal NOT DETECTED [facility] Comment on above: Performed By: #### C VDAGS #### [facility] [address] [place] [address] Dr. Ashlie Hills Chlamydia Pneumoniae Not detected Normal NOT DETECTED [facility] Comment on above: Performed By: #### C VDAGS #### [facility] [address] [place] [address] Dr. Ashlie Hills Coronavirus 229E Not detected Normal NOT DETECTED The [facility] Comment on above: Performed By: #### C VDAGS #### [facility] [address] [place] [address] Dr. Ashlie Hills Coronavirus HKU1 Not detected Normal NOT DETECTED The [facility] Comment on above: Performed By: #### C VDAGS #### [facility] [address] [place] [address] Dr. Ashlie Hills Coronavirus NL63 Not detected Normal NOT DETECTED The [facility] Comment on above: Performed By: #### C VDAGS #### [facility] [address] [place] [address] Dr. Ashlie Hills Coronavirus OC43 Not detected Normal NOT DETECTED The [facility] Comment on above: Performed By: #### C VDAGS #### [facility] [address] [address] [address] Ashlie Hills Influenza A H1 Not detected Normal NOT DETECTED [facility] Comment on above: Performed By: #### C VDAGS #### [facility] [address] [address] [address] Ashlie Hills Influenza A H1 2009 Not detected Normal NOT DETECTED [facility] Comment on above: Performed By: #### C VDAGS #### [facility] [address] [address] [address] Ashlie Hills Influenza A H3 Not detected Normal NOT DETECTED [facility] Comment on above: Performed By: #### C VDAGS #### [facility] [address] [place] [address] Dr. Ashlie Hills Influenza B Not detected Normal NOT DETECTED The [facility] Comment on above: Performed By: #### C VDAGS #### [facility] [address] [place] [address] Dr. Ashlie Hills Metapneumovirus Not detected Normal NOT DETECTED [facility] Comment on above: Performed By: #### C VDAGS #### [facility] [address] [place] [address] Dr. Ashlie Hills Mycoplas. Pneumoniae Not detected Normal NOT DETECTED The [facility] Comment on above: Performed By: #### C VDAGS #### [facility] [address] [place] [address] Dr. Ashlie Hills Parainfluenza 1 Not detected Normal NOT DETECTED [facility] Comment on above: Performed By: #### C VDAGS #### [facility] [address] [address] [address] Ashlie Hills Parainfluenza 2 Not detected Normal NOT DETECTED [facility] Comment on above: Performed By: #### C VDAGS #### [facility] [address] [place] [address] Dr. Ashlie Hills Parainfluenza 3 Detected Abnormal NOT DETECTED The [facility] Comment on above: Performed By: #### C VDAGS #### [facility] [address] [place] [address] Dr. Ashlie Hills Parainfluenza 4 Not detected Normal NOT DETECTED [facility] Comment on above: Performed By: #### C VDAGS #### [facility] [address] [place] [address] Dr. Ashlie Hills Rhino/Enterovirus Not detected Normal NOT DETECTED [facility] Comment on above: Performed By: #### C VDAGS #### [facility] [address] [place] [address] Dr. Ashlie Hills RP2 Header 1 RESPIRATORY PANEL: VIRUSES Normal [facility] Comment on above: Performed By: #### C VDAGS #### [facility] [address] [place] [address] Dr. Ashlie Hills RP2 Header 2 RESPIRATORY PANEL: BACTERIA Normal [facility] Comment on above: Performed By: #### C VDAGS #### [facility] [address] [place] [address] Dr. Ashlie Hills RSV Not detected Normal NOT DETECTED [facility] Comment on above: Performed By: #### C VDAGS #### [facility] [address] [place] [address] Dr. Ashlie Hills SARS-CoV-2 (COVID-19) RNA MADDY+probe Ql (Unsp spec) Not detected Normal NOT DETECTED [facility] Comment on above: Performed By: #### C VDAGS #### [facility] [address] [place] [address] Dr. Ashlie Hills XR CHEST 1 Von [...] by: MARYANNE POWER Date: 2022-12-04 22:23 Normal [facility] BLOOD GASES BTYon 12-04-2022 02 MODE ROOM AIR Normal [facility] Comment on above: Performed By: #### C BC #### [facility] [address] [place] [address] Dr. Ashlie Hills ALLENS TEST Positive [facility] Comment on above: Performed By: #### C BC #### [facility] [address] [place] [address] Dr. Ashlie Hills Base excess Calc (Bld) [Moles/Vol] 5.4 mmol/L Critically high -2.0-2.0 [facility] Comment on above: Performed By: #### C BC #### [facility] [address] [address] [address] Ashlie Hills BIPAP PRESSURE [facility] Comment on above: Performed By: #### C BC #### [facility] [address] [place] [address] Dr. Ashlie Hills CPAP [facility] Comment on above: Performed By: #### C BC #### [facility] [address] [place] [address] Dr. Ashlie Hills FIO2 [facility] Comment on above: Performed By: #### C BC #### [facility] [address] [place] [address] Dr. Ashlie Hills HCO3 (Bld) [Moles/Vol] 30.8 mmol/L Critically high 22.0-26 .0 [facility] Comment on above: Performed By: #### C BC #### [facility] [address] [place] [address] Dr. Ashlie Hills LPM [facility] Comment on above: Performed By: #### C BC #### [facility] [address] [address] [address] Ashlie Hills MINUTE VOLUME Normal [facility] Comment on above: Performed By: #### C BC #### [facility] [address] [place] [address] Dr. Ashlie Hills Oxygen (Bld) [Partial pressure] 46.3 mm[Hg] Critically low 80.0-100.0 [facility] Comment on above: Performed By: #### C BC #### [facility] [address] [address] [address] Ashlie Hills Oxygen saturation in Blood 83.9 % Critically low 95.0-100.0 [facility] Comment on above: Performed By: #### C BC #### [facility] [address] [address] [address] Ashlie Hills PCO2 54.2 mmHg Critically high 35.0-45.0 [facility] Comment on above: Performed By: #### C BC #### [facility] [address] [address] [address] Ashlie Hills [facility] Comment on above: Performed By: #### C BC #### [facility] [address] [place] [address] Dr. Ashlie Hills pH (Bld) 7.363 [pH] Normal 7.350-7.450 [facility] Comment on above: Performed By: #### C BC #### [facility] [address] [address] [address] Ashlie Hills [facility] Comment on above: Performed By: #### C BC #### [facility] [address] [address] [address] Ashlie Hills [facility] Comment on above: Performed By: #### C BC #### [facility] [address] [address] [address] Ashlie Hills PUNCTURE SITE LR [facility] Comment on above: Performed By: #### C BC #### [facility] [address] [address] [address] Ashlie Hills RATE [facility] Comment on above: Performed By: #### C BC #### [facility] [address] [place] [address] Dr. Ashlie Hills VENT MODE [facility] Comment on above: Performed By: #### C BC #### [facility] [address] [place] [address] Dr. Ashlie Hills [facility] Comment on above: Performed By: #### C BC #### [facility] [address] [place] [address] Dr. Ashlie Hills BNPon 12-04-2022 Natriuretic peptide B (Bld) [Mass/Vol] 76.0 pg/mL Normal <=900.0 [facility] Comment on above: Performed By: #### P OCGLUC #### [facility] [address] [place] [address] Dr. Ashlie Hills CBC AUTO DIFFon 12-04-2022 BASO # 0.1 103/ul Normal 0.0-0.1 [facility] Comment on above: Performed By: #### C BC #### [facility] [address] [place] [address] Dr. Ashlie Hills Basophils/100 WBC (Bld) 0.6 % Normal 0.2-2.0 [facility] Comment on above: Performed By: #### C BC #### [facility] [address] [place] [address] Dr. Ashlie Hills EO # 0.2 103/ul Normal 0.0-0.7 [facility] Comment on above: Performed By: #### C BC #### [facility] [address] [place] [address] Dr. Ashlie Hills Eosinophils/100 WBC (Bld) 1.9 % Normal 0.9-7.0 [facility] Comment on above: Performed By: #### C BC #### [facility] [address] [place] [address] Dr. Ashlie Hills Erythrocyte distribution width (RBC) [Ratio] 15.0 % Normal 11.0-15.0 [facility] Comment on above: Performed By: #### C BC #### [facility] [address] [place] [address] Dr. Ashlie Hills Hematocrit (Bld) [Volume fraction] 49.1 % Critically high 36.0-48.0 [facility] Comment on above: Performed By: #### C BC #### [facility] [address] [place] [address] Dr. Ashlie Hills Hemoglobin (Bld) [Mass/Vol] 15.6 g/dL Normal 12.0-16.0 [facility] Comment on above: Performed By: #### C BC #### [facility] [address] [place] [address] Dr. Ashlie Hills IG # 0.02 10e3/ul Normal 0.00-0.03 [facility] Comment on above: Performed By: #### C BC #### [facility] [address] [place] [address] Dr. Ashlie Hills IG % 0.2 % Normal 0.0-0.5 [facility] Comment on above: Performed By: #### C BC #### [facility] [address] [place] [address] Dr. Ashlie Hills LYMPH # 2.8 103/ul Normal 1.2-3.8 [facility] Comment on above: Performed By: #### C BC #### [facility] [address] [place] [address] Dr. Ashlie Hills Lymphocytes/100 WBC (Bld) 29.9 % Normal 20.5-60.0 [facility] Comment on above: Performed By: #### C BC #### [facility] [address] [place] [address] Dr. Ashlie Hills MANUAL DIFF REQ NO Normal [facility] Comment on above: Performed By: #### C BC #### [facility] [address] [place] [address] Dr. Ashlie Hills MCH (RBC) [Entitic mass] 28.5 pg Normal 26.7-34.0 [facility] Comment on above: Performed By: #### C BC #### [facility] [address] [place] [address] Dr. Ashlie Hills MCHC (RBC) [Mass/Vol] 31.8 g/dL Normal 29.9-35.2 [facility] Comment on above: Performed By: #### C BC #### [facility] [address] [place] [address] Dr. Ashlie Hills MCV (RBC) [Entitic vol] 89.8 fL Normal 81.0-99.0 [facility] Comment on above: Performed By: #### C BC #### [facility] [address] [place] [address] Dr. Ashlie Hills MONO # 1.0 103/ul Critically high 0.3-0.8 [facility] Comment on above: Performed By: #### C BC #### [facility] [address] [place] [address] Dr. Ashlie Hills Monocytes/100 WBC (Bld) 10.6 % Normal 1.7-12.0 [facility] Comment on above: Performed By: #### C BC #### [facility] [address] [place] [address] Dr. Ashlie Hills NEUT # 5.3 103/ul Normal 1.4-6.5 [facility] Comment on above: Performed By: #### C BC #### [facility] [address] [place] [address] Dr. Ashlie Hills Neutrophils/100 WBC (Bld) 56.8 % Normal 43.0-75.0 [facility] Comment on above: Performed By: #### C BC #### [facility] [address] [place] [address] Dr. Ashlie Hills Platelet mean volume (Bld) [Entitic vol] 12.5 fL Normal 9.5-13.5 [facility] Comment on above: Performed By: #### C BC #### [facility] [address] [place] [address] Dr. Ashlie Hills PLT 109 103/ul Critically low 150-450 [facility] Comment on above: Performed By: #### C BC #### [facility] [address] [place] [address] Dr. Ashlie Hills RBC 5.47 106/ul Critically high 4.20-5.40 [facility] Comment on above: Performed By: #### C BC #### [facility] [address] [place] [address] Dr. Ashlie Hills WBC 9.4 103/ul Normal 4.0-11.0 [facility] Comment on above: Performed By: #### C BC #### [facility] [address] [address] [address] Ashlie Hills PROF 14(COMP METB)on 023 Albumin [Mass/Vol] 2.9 g/dL Critically low 3.4-5.0 Th e [facility] Comment on above: Performed By: #### C BC #### [facility] [address] [place] [address] Dr. Ashlie Hills Albumin/Globulin [Mass ratio] 0.6 {ratio} Normal [facility] Comment on above: Performed By: #### C BC #### [facility] [address] [place] [address] Dr. Ashlie Hills ALP [Catalytic activity/Vol] 64 U/L Normal 46-116 [facility] Comment on above: Performed By: #### C BC #### [facility] [address] [place] [address] Dr. Ashlie Hills ALT [Catalytic activity/Vol] 16 U/L Normal 14-59 [facility] Comment on above: Performed By: #### C BC #### [facility] [address] [place] [address] Dr. Ashlie Hills Anion gap [Moles/Vol] 9.6 mmol/L Normal [facility] Comment on above: Performed By: #### C BC #### [facility] [address] [place] [address] Dr. Ashlie Hills AST [Catalytic activity/Vol] 16 U/L Normal 15-37 [facility] Comment on above: Performed By: #### C BC #### [facility] [address] [place] [address] Dr. Ashlie Hills Bilirubin [Mass/Vol] 0.5 mg/dL Normal 0.2-1.0 [facility] Comment on above: Performed By: #### C BC #### [facility] [address] [place] [address] Dr. Ashlie Hills Calcium [Mass/Vol] 8.7 mg/dL Normal 8.5-10.1 [facility] Comment on above: Performed By: #### C BC #### [facility] [address] [place] [address] Dr. Ashlie Hills Chloride [Moles/Vol] 103 mmol/L Normal 98-107 [facility] Comment on above: Performed By: #### C BC #### [facility] [address] [address] [address] Ashlie Hills CO2 [Moles/Vol] 30.7 mmol/L Normal 21.0-32.0 [facility] Comment on above: Performed By: #### C BC #### [facility] [address] [place] [address] Dr. Ashlie Hills Creatinine [Mass/Vol] 0.96 mg/dL Normal 0.55-1.02 [facility] Comment on above: Performed By: #### C BC #### [facility] [address] [place] [address] Dr. Ashlie Hills EGFR-AF MOSOTHO >60 Normal >=60 [facility] Comment on above: Performed By: #### C BC #### [facility] [address] [place] [address] Dr. Ashlie Hills EGFR-NON AF MOSOTHO >60 Normal >=60 [facility] Comment on above: Performed By: #### C BC #### [facility] [address] [place] [address] Dr. Ashlie Hills Globulin (S) [Mass/Vol] 4.7 g/dL Normal [facility] Comment on above: Performed By: #### C BC #### [facility] [address] [place] [address] Dr. Ashlie Hills Glucose [Mass/Vol] 170 mg/dL Critically high 74-106 [facility] Comment on above: Performed By: #### C BC #### [facility] [address] [place] [address] Dr. Ashlie Hills Potassium [Moles/Vol] 4.3 mmol/L Normal 3.5-5.1 [facility] Comment on above: Performed By: #### C BC #### [facility] [address] [place] [address] Dr. Ashlie Hills Protein [Mass/Vol] 7.6 g/dL Normal 6.4-8.2 [facility] Comment on above: Performed By: #### C BC #### [facility] [address] [place] [address] Dr. Ashlie Hills Sodium [Moles/Vol] 139 mmol/L Normal 136-145 [facility] Comment on above: Performed By: #### C BC #### [facility] [address] [place] [address] Dr. Ashlie Hills Urea nitrogen [Mass/Vol] 16.0 mg/dL Normal 7.0-18.0 [facility] Comment on above: Performed By: #### C BC #### [facility] [address] [place] [address] Dr. Ashlie Hills Urea nitrogen/Creatinine [Mass ratio] 16.7 mg/mg Normal [facility] Comment on above: Performed By: #### C BC #### [facility] [address] [place] [address] Dr. Ashlie Hills SYMPTOMATIC COVID-19 ANTIGEN on 12-04-2022 EUA Statement SEE BELOW Normal The [facility] Comment on above: Result Comment: This [...] Performed By: #### C VDAGS #### [facility] [address] [place] [address] Dr. Ashlie Hills SARS-CoV-2 (COVID-19) RNA MADDY+probe Ql (Unsp spec) Negative Normal NEGATIVE [facility] Comment on above: Performed By: #### C VDAGS #### [facility] [address] [place] [address] Dr. Ashlie Hills TROPONIN, HIGH SENSITIVITYon 12-04-2022 HSTROP 8.9 pg/mL Normal 4.0-51.3 [facility] Comment on above: Result Comment: CUT- OFF POINTS HAVE BEEN ESTABLISHED BASED ON THE FOURTH UNIVERSAL DEFINITIONS OF MYOCARDIAL INFARCTION. THE UPPER REFERENCE LIMIT (URL) OF TROPONIN, DEFINED THE 99TH PERCENTILE OF cTnI DISTRIBUTION IN A REFERENCE POPULATION, HAS BEEN CONFIRMED THE DECISION THRESHOLD FOR NE DIAGNOSIS. Performed By: #### P OCGLUC #### [facility] [address] [place] [address] Dr. Ashlie Hills MICROALBUMIN, RAND URon 11-06 mALB 35.8 mg/dL Critically high <=30.0 [facility] Comment on above: Performed By: #### C VDAGS #### [facility] [address] [place] [address] Dr. Ashlie Hills UA RANDOM W/MICROSCOPICon BACTERIA NONE SEEN Normal NONE SEEN [facility] Comment on above: Performed By: #### C VDAGS #### [facility] [address] [place] [address] Dr. Ashlie Hilsl Bilirubin Ql (U) Negative Normal NEGATIVE [facility] Comment on above: Performed By: #### C VDAGS #### [facility] [address] [place] [address] Dr. Ashlie Hills CAST SEEN Abnormal NONE SEEN [facility] Comment on above: Performed By: #### C VDAGS #### [facility] [address] [place] [address] Dr. Ashlie Hills Clarity (U) CLEAR Normal CLEAR [facility] Comment on above: Performed By: #### C VDAGS #### [facility] [address] [place] [address] Dr. Ashlie Hills Color (U) YELLOW Normal YELLOW [facility] Comment on above: Performed By: #### C VDAGS #### [facility] [address] [place] [address] Dr. Ashlie Hills Crystals LM Nom (Urine sed) NONE SEEN Normal NONE SEEN [facility] Comment on above: Performed By: #### C VDAGS #### [facility] [address] [place] [address] Dr. Ashlie Hills Epithelial cells LM Ql (Urine sed) MODERATE Abnormal NONE SEEN /RARE [facility] Comment on above: Performed By: #### C VDAGS #### [facility] [address] [place] [address] Dr. Ashlie Hills Glucose Ql (U) Negative Normal NEGATIVE [facility] Comment on above: Performed By: #### C VDAGS #### [facility] [address] [place] [address] Dr. Ashlie Hills Hemoglobin Ql (U) TRACE-INTACT Abnormal NEGATIVE [facility] Comment on above: Performed By: #### C VDAGS #### [facility] [address] [place] [address] Dr. Ashlie Hills Ketones Ql (U) Negative Normal NEGATIVE [facility] Comment on above: Performed By: #### C VDAGS #### [facility] [address] [place] [address] Dr. Ashlie Hills LEUKOCYTES Negative Normal NEGATIVE [facility] Comment on above: Performed By: #### C VDAGS #### [facility] [address] [place] [address] Dr. Ashlie Hills MUCOUS NONE SEEN Normal NONE SEEN [facility] Comment on above: Performed By: #### C VDAGS #### [facility] [address] [place] [address] Dr. Ashlie Hills Nitrite Ql (U) Negative Normal NEGATIVE [facility] Comment on above: Performed By: #### C VDAGS #### [facility] [address] [place] [address] Dr. Ashlie Hills pH (U) 5.0 [pH] Normal 5-9 [facility] Comment on above: Performed By: #### C VDAGS #### [facility] [address] [place] [address] Dr. Ashlie Hills RBC 0-2 Normal 0-2 [facility] Comment on above: Performed By: #### C VDAGS #### [facility] [address] [place] [address] Dr. Ashlie Hills SPEC GRAVITY 1.030 Abnormal 1.005-<=1.025 [facility] Comment on above: Performed By: #### C VDAGS #### [facility] [address] [place] [address] Dr. Ashlie Hills UA PROTEIN 100 mg/dl Abnormal NEGATIVE/ TRACE [facility] Comment on above: Performed By: #### C VDAGS #### [facility] [address] [place] [address] Dr. Ashlie Hills Urobilinogen Qn (U) 0.2 {Little'U}/dL Normal 0.2 - 1. 0 [facility] Comment on above: Performed By: #### C VDAGS #### [facility] [address] [place] [address] Dr. Ashlie Hills WBC NONE SEEN Normal NONE SEEN [facility] Comment on above: Performed By: #### C VDAGS #### [facility] [address] [place] [address] Dr. Ashlie Hills CBC AUTO DIFFon 11-22-2022 BASO # 0.0 103/ul Normal 0.0-0.1 [facility] Comment on above: Performed By: #### C BC #### [facility] [address] [place] [address] Dr. Ashlie Hills Basophils/100 WBC (Bld) 0.3 % Normal 0.2-2.0 [facility] Comment on above: Performed By: #### C BC #### [facility] [address] [place] [address] Dr. Ashlie Hills EO # 0.4 103/ul Normal 0.0-0.7 [facility] Comment on above: Performed By: #### C BC #### [facility] [address] [place] [address] Dr. Ashlie Hills Eosinophils/100 WBC (Bld) 3.0 % Normal 0.9-7.0 [facility] Comment on above: Performed By: #### C BC #### [facility] [address] [place] [address] Dr. Ashlie Hills Erythrocyte distribution width (RBC) [Ratio] 15.3 % Critically high 11.0-15.0 [facility] Comment on above: Performed By: #### C BC #### [facility] [address] [place] [address] Dr. Ashlie Hills Hematocrit (Bld) [Volume fraction] 52.4 % Critically high 36.0-48.0 [facility] Comment on above: Performed By: #### C BC #### [facility] [address] [place] [address] Dr. Ashlie Hills Hemoglobin (Bld) [Mass/Vol] 16.8 g/dL Critically high 12.0-16.0 [facility] Comment on above: Performed By: #### C BC #### [facility] [address] [place] [address] Dr. Ashlie Hills IG # 0.04 10e3/ul Critically high 0.00-0.03 [facility] Comment on above: Performed By: #### C BC #### [facility] [address] [place] [address] Dr. Ashlie Hills IG % 0.3 % Normal 0.0-0.5 [facility] Comment on above: Performed By: #### C BC #### [facility] [address] [place] [address] Dr. Ashlie Hills LYMPH # 4.5 103/ul Critically high 1.2-3.8 [facility] Comment on above: Performed By: #### C BC #### [facility] [address] [place] [address] Dr. Ashlie Hills Lymphocytes/100 WBC (Bld) 33.2 % Normal 20.5-60.0 [facility] Comment on above: Performed By: #### C BC #### [facility] [address] [place] [address] Dr. Ashlie Hills MANUAL DIFF REQ NO Normal [facility] Comment on above: Performed By: #### C BC #### [facility] [address] [place] [address] Dr. Ashlie Hills MCH (RBC) [Entitic mass] 28.0 pg Normal 26.7-34.0 [facility] Comment on above: Performed By: #### C BC #### [facility] [address] [place] [address] Dr. Ashlie Hills MCHC (RBC) [Mass/Vol] 32.1 g/dL Normal 29.9-35.2 [facility] Comment on above: Performed By: #### C BC #### [facility] [address] [place] [address] Dr. Ashlie Hills MCV (RBC) [Entitic vol] 87.3 fL Normal 81.0-99.0 [facility] Comment on above: Performed By: #### C BC #### [facility] [address] [place] [address] Dr. Ashlie Hills MONO # 0.8 103/ul Normal 0.3-0.8 [facility] Comment on above: Performed By: #### C BC #### [facility] [address] [place] [address] Dr. Ashlie Hills Monocytes/100 WBC (Bld) 5.7 % Normal 1.7-12.0 [facility] Comment on above: Performed By: #### C BC #### [facility] [address] [place] [address] Dr. Ashlie Hills NEUT # 7.8 103/ul Critically high 1.4-6.5 [facility] Comment on above: Performed By: #### C BC #### [facility] [address] [place] [address] Dr. Ashlie Hills Neutrophils/100 WBC (Bld) 57.5 % Normal 43.0-75.0 [facility] Comment on above: Performed By: #### C BC #### [facility] [address] [place] [address] Dr. Ashlie Hills Platelet mean volume (Bld) [Entitic vol] 12.0 fL Normal 9.5-13.5 [facility] Comment on above: Performed By: #### C BC #### [facility] [address] [place] [address] Dr. Ashlie Hills PLT 152 103/ul Normal 150-450 [facility] Comment on above: Performed By: #### C BC #### [facility] [address] [place] [address] Dr. Ashlie Hills RBC 6.00 106/ul Critically high 4.20-5.40 [facility] Comment on above: Performed By: #### C BC #### [facility] [address] [place] [address] Dr. Ashlie Hills WBC 13.6 103/ul Critically high 4.0-11.0 [facility] Comment on above: Performed By: #### C BC #### [facility] [address] [place] [address] Dr. Ashlie Hills LIPID PROFILEon 11-22-2022 CHOL-HDL RATIO NORM SEE BELOW Normal [facility] Comment on above: Result Comment: 3.3 - 4.4 LOW RISK 4.4 - 7.1 AVERAGE RISK 7.1 - 11.0 MODERATE RISK >11.0 HIGH RISK Performed By: #### C BC #### [facility] [address] [place] [address] Dr. Ashlie Hills Cholesterol [Mass/Vol] 139 mg/dL Normal <=200 [facility] Comment on above: Performed By: #### C BC #### [facility] [address] [place] [address] Dr. Ashlie Hills Cholesterol in HDL [Mass/Vol] 35 mg/dL Critically low 40-60 [facility] Comment on above: Performed By: #### C BC #### [facility] [address] [place] [address] Dr. Ashlie Hills Cholesterol in LDL [Mass/Vol] 67.4 mg/dL Normal [facility] Comment on above: Performed By: #### C BC #### [facility] [address] [place] [address] Dr. Ashlie Hills Cholesterol.total/Gianna sterol in HDL [Mass ratio] 4.0 {ratio} Normal [facility] Comment on above: Performed By: #### C BC #### [facility] [address] [address] [address] Ashlie Hills HDL NORMAL > or = 60 mg/dl - LOW CARDIOVASCULAR RISK <40 mg/dl - HIGH CARDIOVASCULAR RISK Normal [facility] Comment on above: Performed By: #### C BC #### [facility] [address] [address] [address] Ashlie Hills LDL CALC NORMAL SEE BELOW Normal [facility] Comment on above: Result Comment: <100 mg/dl OPTIMAL 100 - 129 mg/dl NEAR OR ABOVE OPTIMAL 130 - 159 mg/dl BORDERLINE HIGH 160 - 189 mg/dl HIGH >190 mg/dl VERY HIGH Performed By: #### C BC #### [facility] [address] [address] [address] Ashlie Hills Triglyceride [Mass/Vol] 183 mg/dL Critically high <=150 [facility] Comment on above: Performed By: #### C BC #### [facility] [address] [address] [address] Ashlie Hills VLDL CALC 36.6 mg/dL Normal [facility] Comment on above: Performed By: #### C BC #### [facility] [address] [address] [address] Ashlie Hills MG MAMM SCREEN 3D ALEX CADon 11-22-2022 MG MAMM SCREEN 3D ALEX CAD Patient: MITZI MACIAS Exam Date: 11/22/2022 : 1970 Gender:F Ordering : SAYDA BL[employer] Admission #: [id number] Family : Order #: [id number] CLICK HERE TO VIEW EXAM RADIOLOGY REPORT [...] Ovarian Cancer No Treatments None Family Cancers Grandmother-savi worrell with ovarian cancer at age 80; Grandfather-savi worrell with unknown cancer at age 75. LOCATION: [facility] BREAST COMPOSITION: Almost entirely fatty. FINDINGS: [...] on 11/22/2022 at 12:09 Normal [facility] PROF 14(COMP METB)on 023 Albumin [Mass/Vol] 3.0 g/dL Critically low 3.4-5.0 [facility] Comment on above: Performed By: #### C BC #### [facility] [address] [place] [address] Dr. Ashlie Hills Albumin/Globulin [Mass ratio] 0.6 {ratio} Normal [facility] Comment on above: Performed By: #### C BC #### [facility] [address] [address] [address] Ashlie Hills ALP [Catalytic activity/Vol] 68 U/L Normal 46-116 [facility] Comment on above: Performed By: #### C BC #### [facility] [address] [address] [address] Ashlie Hills ALT [Catalytic activity/Vol] 14 U/L Normal 14-59 [facility] Comment on above: Performed By: #### C BC #### [facility] [address] [address] [address] Ashlie Hills Anion gap [Moles/Vol] 12.1 mmol/L Normal [facility] Comment on above: Performed By: #### C BC #### [facility] [address] [address] [address] Ashlie Hills AST [Catalytic activity/Vol] 9 U/L Critically low 15-37 [facility] Comment on above: Performed By: #### C BC #### [facility] [address] [address] [address] Ashlie Hills Bilirubin [Mass/Vol] 0.4 mg/dL Normal 0.2-1.0 [facility] Comment on above: Performed By: #### C BC #### [facility] [address] [address] [address] Ashlie Hills Calcium [Mass/Vol] 9.0 mg/dL Normal 8.5-10.1 [facility] Comment on above: Performed By: #### C BC #### [facility] [address] [address] [address] Ashlie Hills Chloride [Moles/Vol] 105 mmol/L Normal 98-107 [facility] Comment on above: Performed By: #### C BC #### [facility] [address] [address] [address] Ashlie Hills CO2 [Moles/Vol] 30.7 mmol/L Normal 21.0-32.0 [facility] Comment on above: Performed By: #### C BC #### [facility] [address] [place] [address] Dr. Ashlie Hills Creatinine [Mass/Vol] 0.77 mg/dL Normal 0.55-1.02 [facility] Comment on above: Performed By: #### C BC #### [facility] [address] [address] [address] Ashlie Hills EGFR-AF MOSOTHO >60 Normal >=60 [facility] Comment on above: Performed By: #### C BC #### [facility] [address] [id number] Ashlie Hills EGFR-NON AF [place]HO >60 Normal >=60 [facility] Comment on above: Performed By: #### C BC #### [facility] [address] [address] [address] Ashlie Hills Globulin (S) [Mass/Vol] 4.8 g/dL Normal [facility] Comment on above: Performed By: #### C BC #### [facility] [address] [place] [address] Dr. Ashlie Hills Glucose [Mass/Vol] 162 mg/dL Critically high 74-106 [facility] Comment on above: Performed By: #### C BC #### [facility] [address] [place] [address] Dr. Ashlie Hills Potassium [Moles/Vol] 3.8 mmol/L Normal 3.5-5.1 [facility] Comment on above: Performed By: #### C BC #### [facility] [address] [place] [address] Dr. Ashlie Hills Protein [Mass/Vol] 7.8 g/dL Normal 6.4-8.2 [facility] Comment on above: Performed By: #### C BC #### [facility] [address] [place] [address] Dr. Ashlie Hills Sodium [Moles/Vol] 144 mmol/L Normal 136-145 [facility] Comment on above: Performed By: #### C BC #### [facility] [address] [place] [address] Dr. Ashlie Hills Urea nitrogen [Mass/Vol] 24.0 mg/dL Critically high 7.0-18.0 [facility] Comment on above: Performed By: #### C BC #### [facility] [address] [place] [address] Dr. Ashlie Hills Urea nitrogen/Creatinine [Mass ratio] 31.2 mg/mg Normal [facility] Comment on above: Performed By: #### C BC #### [facility] [address] [place] [address] Dr. Ashlie Hills CBC AUTO DIFFon 10-05-2022 BASO # 0.1 103/ul Normal 0.0-0.1 [facility] Comment on above: Performed By: #### C BC #### [facility] [address] [place], [place] [id number] Dr. Ashlie Hills Basophils/100 WBC (Bld) 0.6 % Normal 0.2-2.0 [facility] Comment on above: Performed By: #### C BC #### [facility] [address] [place] [address] Dr. Ashlie Hills EO # 0.3 103/ul Normal 0.0-0.7 [facility] Comment on above: Performed By: #### C BC #### [facility] [address] [place] [address] Dr. Ashlie Hills Eosinophils/100 WBC (Bld) 2.1 % Normal 0.9-7.0 [facility] Comment on above: Performed By: #### C BC #### [facility] [address] [place] [address] Dr. Ashlie Hills Erythrocyte distribution width (RBC) [Ratio] 15.9 % Critically high 11.0-15.0 [facility] Comment on above: Performed By: #### C BC #### [facility] [address] [place] [address] Dr. Ashlie Hills Hematocrit (Bld) [Volume fraction] 51.8 % Critically high 36.0-48.0 [facility] Comment on above: Performed By: #### C BC #### [facility] [address] [place] [address] Dr. Ashlie Hills Hemoglobin (Bld) [Mass/Vol] 16.6 g/dL Critically high 12.0-16.0 [facility] Comment on above: Performed By: #### C BC #### [facility] [address] [place] [address] Dr. Ashlie Hills IG # 0.03 10e3/ul Normal 0.00-0.03 [facility] Comment on above: Performed By: #### C BC #### [facility] [address] [place] [address] Dr. Ashlie Hills IG % 0.2 % Normal 0.0-0.5 [facility] Comment on above: Performed By: #### C BC #### [facility] [address] [address] [address] Ashlie Hills LYMPH # 3.9 103/ul Critically high 1.2-3.8 [facility] Comment on above: Performed By: #### C BC #### [facility] [address] [place] [address] Dr. Ashlie Hills Lymphocytes/100 WBC (Bld) 31.7 % Normal 20.5-60.0 [facility] Comment on above: Performed By: #### C BC #### [facility] [address] [place] [address] Dr. Ashlie Hills MANUAL DIFF REQ NO Normal [facility] Comment on above: Performed By: #### C BC #### [facility] [address] [place] [address] Dr. Ashlie Hills MCH (RBC) [Entitic mass] 27.9 pg Normal 26.7-34.0 [facility] Comment on above: Performed By: #### C BC #### [facility] [address] [place] [address] Dr. Ashlie Hills MCHC (RBC) [Mass/Vol] 32.0 g/dL Normal 29.9-35.2 [facility] Comment on above: Performed By: #### C BC #### [facility] [address] [place] [address] Dr. Ashlie Hills MCV (RBC) [Entitic vol] 87.1 fL Normal 81.0-99.0 [facility] Comment on above: Performed By: #### C BC #### [facility] [address] [place] [address] Dr. Ashlie Hills MONO # 0.7 103/ul Normal 0.3-0.8 [facility] Comment on above: Performed By: #### C BC #### [facility] [address] [place] [address] Dr. Ashlie Hills Monocytes/100 WBC (Bld) 5.8 % Normal 1.7-12.0 [facility] Comment on above: Performed By: #### C BC #### [facility] [address] [place] [address] Dr. Ashlie Hills NEUT # 7.3 103/ul Critically high 1.4-6.5 [facility] Comment on above: Performed By: #### C BC #### [facility] [address] [address] [address] Ashlie Hills Neutrophils/100 WBC (Bld) 59.6 % Normal 43.0-75.0 [facility] Comment on above: Performed By: #### C BC #### [facility] [address] [place] [address] Dr. Ashlie Hills Platelet mean volume (Bld) [Entitic vol] 11.7 fL Normal 9.5-13.5 [facility] Comment on above: Performed By: #### C BC #### [facility] [address] [place] [address] Dr. Ashlie Hills PLT 117 103/ul Critically low 150-450 [facility] Comment on above: Performed By: #### C BC #### [facility] [address] [place] [address] Dr. Ashlie Hills RBC 5.95 106/ul Critically high 4.20-5.40 [facility] Comment on above: Performed By: #### C BC #### [facility] [address] [place] [address] Dr. Ashlie Hills WBC 12.3 103/ul Critically high 4.0-11.0 [facility] Comment on above: Performed By: #### C BC #### [facility] [address] [place] [address] ABD/PELV W CONon [...] RICCO PICKARD Date: 2022-10-05 13:13 Normal [facility] URINE PROFILEon 3 Bilirubin Ql (U) Negative Normal NEGATIVE [facility] Comment on above: Performed By: #### P OCGLUC #### [facility] [address] [place] [address] Dr. Ashlie Hills Clarity (U) CLEAR Normal CLEAR [facility] Comment on above: Performed By: #### P OCGLUC #### [facility] [address] [address] [address] Ashlie Hills Color (U) YELLOW Normal YELLOW [facility] Comment on above: Performed By: #### P OCGLUC #### [facility] [address] [address] [address] Ashlie HOBBS A micrscopic examination will be performed if indicated. Normal [facility] Comment on above: Performed By: #### P OCGLUC #### [facility] [address] [address] [address] Ashlie Hills Glucose Ql (U) Negative Normal NEGATIVE [facility] Comment on above: Performed By: #### P OCGLUC #### [facility] [address] [address] [address] Ashlie Hills Hemoglobin Ql (U) Negative Normal NEGATIVE [facility] Comment on above: Performed By: #### P OCGLUC #### [facility] [address] [address] [address] Ashlie Hills Ketones Ql (U) Negative Normal NEGATIVE [facility] Comment on above: Performed By: #### P OCGLUC #### [facility] [address] [place] [address] Dr. Ashlie Hills LEUKOCYTES Negative Normal NEGATIVE [facility] Comment on above: Performed By: #### P OCGLUC #### [facility] [address] [place] [address] Dr. Ashlie Hills Nitrite Ql (U) Negative Normal NEGATIVE [facility] Comment on above: Performed By: #### P OCGLUC #### [facility] [address] [place] [address] Dr. Ashlie Hills pH (U) 6.0 [pH] Normal 5-9 [facility] Comment on above: Performed By: #### P OCGLUC #### [facility] [address] [place] [address] Dr. Ashlie Hills Protein (U) [Mass/Vol] 100 mg/dL Abnormal NEGAT YURY/ TRACE [facility] Comment on above: Performed By: #### P OCGLUC #### [facility] [address] [place] [address] Dr. Ashlie Hills SPEC GRAVITY 1.010 Normal 1.005-<=1.025 [facility] Comment on above: Performed By: #### P OCGLUC #### [facility] [address] [place] [address] Dr. Ashlie Hills UR MICRO IND INDICATED Normal [facility] Comment on above: Performed By: #### P OCGLUC #### [facility] [address] [place] [address] Dr. Ashlie Hills Urobilinogen Qn (U) 1.0 {Little'U}/dL Normal 0.2 - 1. 0 [facility] Comment on above: Performed By: #### P OCGLUC #### [facility] [address] [place] [address] Dr. Ashlie Hills LIPASEon 10-05-2022 Lipase [Catalytic activity/Vol] 1771.0 U/L Critically high 73.0-393.0 [facility] Comment on above: Performed By: #### C BC #### [facility] [address] [place] [address] Dr. Ashlie Hills PREG HCG QUALon 10-05-2022 , QUAL Negative Normal NEGATIVE [facility] Comment on above: Performed By: #### P OCGLUC #### [facility] [address] [place] [address] Dr. Ashlie Hills PROF 14(COMP METB)on 023 Albumin [Mass/Vol] 3.2 g/dL Critically low 3.4-5.0 [facility] Comment on above: Performed By: #### C BC #### [facility] [address] [place] [address] Dr. Ashlie Hills Albumin/Globulin [Mass ratio] 0.7 {ratio} Normal [facility] Comment on above: Performed By: #### C BC #### [facility] [address] [place] [address] Dr. Ashlie Hills ALP [Catalytic activity/Vol] 70 U/L Normal 46-116 [facility] Comment on above: Performed By: #### C BC #### [facility] [address] [place] [address] Dr. Ashlie Hills ALT [Catalytic activity/Vol] 11 U/L Critically low 14-59 [facility] Comment on above: Performed By: #### C BC #### [facility] [address] [place] [address] Dr. Ashlie Hills Anion gap [Moles/Vol] 10.3 mmol/L Normal [facility] Comment on above: Performed By: #### C BC #### [facility] [address] [place] [address] Dr. Ashlie Hills AST [Catalytic activity/Vol] 11 U/L Critically low 15-37 [facility] Comment on above: Performed By: #### C BC #### [facility] [address] [place] [address] Dr. Ashlie Hills Bilirubin [Mass/Vol] 0.9 mg/dL Normal 0.2-1.0 [facility] Comment on above: Performed By: #### C BC #### [facility] [address] [address] [address] Ashlie Hills Calcium [Mass/Vol] 9.3 mg/dL Normal 8.5-10.1 [facility] Comment on above: Performed By: #### C BC #### [facility] [address] [address] [address] Ashlie Hills Chloride [Moles/Vol] 105 mmol/L Normal 98-107 [facility] Comment on above: Performed By: #### C BC #### [facility] [address] [place] [address] Dr. Ashlie Hills CO2 [Moles/Vol] 30.6 mmol/L Normal 21.0-32.0 [facility] Comment on above: Performed By: #### C BC #### [facility] [address] [place] [address] Dr. Ashlie Hills Creatinine [Mass/Vol] 0.62 mg/dL Normal 0.55-1.02 [facility] Comment on above: Performed By: #### C BC #### [facility] [address] [place] [address] Dr. Ashlie Hills EGFR-AF MOSOTHO >60 Normal >=60 [facility] Comment on above: Performed By: #### C BC #### [facility] [address] [place] [address] Dr. Ashlie Hills EGFR-NON AF MOSOTHO >60 Normal >=60 [facility] Comment on above: Performed By: #### C BC #### [facility] [address] [address] [address] Ashlie Hills Globulin (S) [Mass/Vol] 4.6 g/dL Normal [facility] Comment on above: Performed By: #### C BC #### [facility] [address] [place] [address] Dr. Ashlie Hills Glucose [Mass/Vol] 85 mg/dL Normal 74-106 [facility] Comment on above: Performed By: #### C BC #### [facility] [address] [place] [address] Dr. Ashlie Hills Potassium [Moles/Vol] 3.9 mmol/L Normal 3.5-5.1 [facility] Comment on above: Performed By: #### C BC #### [facility] [address] [place] [address] Dr. Ashlie Hills Protein [Mass/Vol] 7.8 g/dL Normal 6.4-8.2 [facility] Comment on above: Performed By: #### C BC #### [facility] [address] [place] [address] Dr. Ashlie Hills Sodium [Moles/Vol] 142 mmol/L Normal 136-145 [facility] Comment on above: Performed By: #### C BC #### [facility] [address] [place] [address] Dr. Ashlie Hills Urea nitrogen [Mass/Vol] 12.0 mg/dL Normal 7.0-18.0 [facility] Comment on above: Performed By: #### C BC #### [facility] [address] [place] [address] Dr. Ashlie Hills Urea nitrogen/Creatinine [Mass ratio] 19.4 mg/mg Normal [facility] Comment on above: Performed By: #### C BC #### [facility] [address] [place] [address] Dr. Ashlie Hills URINE MICROSCOPIC ONLYon BACTERIA TRACE Abnormal NONE SEEN [facility] Comment on above: Performed By: #### P OCGLUC #### [facility] [address] [place] [address] Dr. Ashlie Hills Bacteria identified Cx Nom (U) NOT INDICATED Normal [facility] Comment on above: Performed By: #### P OCGLUC #### [facility] [address] [place] [address] Dr. Ashlie Hills CAST NONE SEEN Normal NONE SEEN [facility] Comment on above: Performed By: #### P OCGLUC #### [facility] [address] [place] [address] Dr. Ashlie Hills Crystals LM Nom (Urine sed) NONE SEEN Normal NONE SEEN [facility] Comment on above: Performed By: #### P OCGLUC #### [facility] [address] [place] [address] Dr. Ashlie Hills Epithelial cells LM Ql (Urine sed) MODERATE Abnormal NONE SEEN /RARE [facility] Comment on above: Performed By: #### P OCGLUC #### [facility] [address] [place] [address] Dr. Ashlie Hills MUCOUS NONE SEEN Normal NONE SEEN [facility] Comment on above: Performed By: #### P OCGLUC #### [facility] [address] [place] [address] Dr. Ashlie Hills RBC 0-2 Normal 0-2 [facility] Comment on above: Performed By: #### P OCGLUC #### [facility] [address] [place] [address] Dr. Ashlie Hills WBC 0-2 Abnormal NONE SEEN [facility] Comment on above: Performed By: #### P OCGLUC #### [facility] [address] [place] [address] Dr. Ahslie Hills [facility]-19 [facility]on 09-06 SARS-CoV-2 (COVID-19) RNA MADDY+probe Ql (Unsp spec) Detected Abnormal NOT DETECTED [facility] Comment on above: Result Comment: This test is not yet approved or cleared by the [place] FDA. When there are no FDA-approved or cleared tests available, and other criteria are met, FDA can make tests available under an emergency access mechanism called an Emergency Use Authorization (EUA). The EUA for this test is supported by the [place] of Health and Human Service's declaration that [...] Performed By: #### C VDAGS #### [facility] [address] [place] [address] Dr. Ashlie Hills INFLUENZA A AND B AGon 09-21 INFLUANEGH SEE BELOW Normal [facility] Comment on above: Result Comment: Nega tive for Flu A protein angiten. Infection due to Flu A cannot be ruled out. Flu A angiten in the sample may be below the detection limit of the test. Performed By: #### I NFLUAB #### [facility] [address] [place] [address] Dr. Ashlie Hills [facility] SEE BELOW Normal [facility] Comment on above: Result Comment: Nega tive for Flu B protein antigen. Infection due to Flu B cannot be ruled out. Flu B antigen in the sample may be below the detection limit of the test. Performed By: #### I NFLUAB #### [facility] [address] [place] [address] Dr. Ashlie Hills INFLUENZA A AG Negative Normal NEGATIVE SEE COMMENT [facility] Comment on above: Performed By: #### I NFLUAB #### [facility] [address] [place] [address] Dr. Ashlie Hills INFLUENZA B AG Negative Normal NEGATIVE SEE COMMENT [facility] Comment on above: Performed By: #### I NFLUAB #### [facility] [address] [place] [address] ABD/PELV W CONon [...] dating back to at least 10/21/2018, unchanged. [email or web address].[facility].nih.gov/pmc/artic [email or web address]/ Electronically authenticated by: COLLIN HUERTAS Date: 2022-07-27 14:56 Normal [facility] CREATININEon 07-18-2022 Creatinine [Mass/Vol] 0.81 mg/dL Normal 0.55-1.02 [facility] Comment on above: Performed By: #### C BC #### [facility] [address] [place] [address] Dr. Ashlie Hills EGFR-AF MOSOTHO >60 Normal >=60 [facility] Comment on above: Performed By: #### C BC #### [facility] [address] [place] [address] Dr. Ashlie Hills EGFR-NON AF MOSOTHO >60 Normal >=60 [facility] Comment on above: Performed By: #### C BC #### [facility] [address] [place] [address] LOW EXT W [...] VELOZ Date: 2022-07-18 14:58 Normal [facility] XR KNEE LT 1_2 Von 3 [...] BAUTISTA Date: 2022-07-18 12:00 Normal [facility] Covid-19 PCR (CVDTB)on 06-09 SARS-CoV-2 (COVID-19) RNA MADDY+probe Ql (Unsp spec) Not detected Normal NOT DETECTED [facility] Comment on above: Result Comment: This test is not yet approved or cleared by the [place] FDA. When there are no FDA-approved or cleared tests available, and other criteria are met, FDA can make tests available under an emergency access mechanism called an Emergency Use Authorization (EUA). The EUA for this test is supported by the [place] of Health and Human Service's (HHS's) [...] Performed By: #### C BC #### [facility] [address] [place] [address] Dr. Ashlie Hills INFLUENZA A AND B AGon 07-06 INFLUANEGH SEE BELOW Normal [facility] Comment on above: Result Comment: Nega tive for Flu A protein angiten. Infection due to Flu A cannot be ruled out. Flu A angiten in the sample may be below the detection limit of the test. Performed By: #### C BC #### [facility] [address] [address] [address] Ashlie Hills [facility] SEE BELOW Normal [facility] Comment on above: Result Comment: Nega tive for Flu B protein antigen. Infection due to Flu B cannot be ruled out. Flu B antigen in the sample may be below the detection limit of the test. Performed By: #### C BC #### [facility] [address] [place] [address] Dr. Ashlie Hills INFLUENZA A AG Negative Normal NEGATIVE SEE COMMENT [facility] Comment on above: Performed By: #### C BC #### [facility] [address] [place] [address] Dr. Ashlie Hills INFLUENZA B AG Negative Normal NEGATIVE SEE COMMENT [facility] Comment on above: Performed By: #### C BC #### [facility] [address] [place] [address] Dr. Ashlie Hills POINT OF CARE GLUCOSEon 10- Glucose [Mass/Vol] 108 mg/dL Critically high 74-106 [facility] Comment on above: Performed By: #### C BC #### [facility] [address] [place] [address] Dr. Ashlie Hills RAGHU by IFAon 03-07-2022 Antinuclear Antibodies, IFA Negative Normal [facility] Comment on above: Result Comment: Nega tive <1:80 Borderline 1:80 Positive >1:80 ICAP nomenclature: AC-0 For more information about Hep-2 cell patterns use ANApatterns.org, the official website for the International Consensus on Antinuclear Antibody (RAGHU) Patterns (ICAP). Performed By: #### A NAIFA #### [facility] [address] [place] [address] Dr. Ashlie Hills IMMUNOFIXATION (TREVON), URINEo n 03-07-2022 TREVON Interpretation:U Comment Normal [facility] Comment on above: Result Comment: No m onoclonality detected. Performed By: #### C BC #### [facility] [address] [place] [address] Dr. Ashlie Hills IMMUNOFIXATION(TREVON),PROTEIN ELEC(PE),FREon 03-07-2022 Albumin [Mass/Vol] 3.0 g/dL Normal 2.9-4.4 [facility] Comment on above: Performed By: #### I NFLUAB #### [facility] [address] [place] [address] Dr. Ashlie Hills Albumin/Globulin [Mass ratio] 0.8 {ratio} Normal 0.7-1.7 [facility] Comment on above: Performed By: #### I NFLUAB #### [facility] [address] [place] [address] Dr. Ashlie Hills Bqpcx-7-Dwhovhmx 0.3 g/dL Normal 0.0-0.4 [facility] Comment on above: Performed By: #### I NFLUAB #### [facility] [address] [place] [address] Dr. Ashlie Hills Npioh-1-Ccpnnqyb 1.0 g/dL Normal 0.4-1.0 [facility] Comment on above: Performed By: #### I NFLUAB #### [facility] [address] [place] [address] Dr. Ashlie Hills Beta Globulin 1.8 g/dL Critically high 0.7-1.3 [facility] Comment on above: Performed By: #### I NFLUAB #### [facility] [address] [place] [address] Dr. Ashlie Hills Free Ama Lt Chains,S 45.2 mg/L Critically high 3.3-19.4 [facility] Comment on above: Performed By: #### I NFLUAB #### [facility] [address] [place] [address] Dr. Ashlie Hills Free Lambda Lt Chains,S 40.3 mg/L Critically high 5.7-26. 3 [facility] Comment on above: Performed By: #### I NFLUAB #### [facility] [address] [place] [address] Dr. Ashlie Hills Gamma Globulin 0.8 g/dL Normal 0.4-1.8 [facility] Comment on above: Performed By: #### I NFLUAB #### [facility] [address] [place] [address] Dr. Ashlie Hills Globulin (S) [Mass/Vol] 3.9 g/dL Normal 2.2-3.9 [facility] Comment on above: Performed By: #### I NFLUAB #### [facility] [address] [place] [address] Dr. Ashlie Hills Immunofixation Result, Serum Comment Normal [facility] Comment on above: Result Comment: No m onoclonality detected. Performed By: #### I NFLUAB #### [facility] [address] [place] [address] Dr. Ashlie Hills Immunoglobulin A, Qn, Serum 776 mg/dL Critically high 87-352 [facility] Comment on above: Performed By: #### I NFLUAB #### [facility] [address] [place] [address] Dr. Ashlie Hills Immunoglobulin G, Qn, Serum 955 mg/dL Normal 586-1602 [facility] Comment on above: Performed By: #### I NFLUAB #### [facility] [address] [place] [address] Dr. Ashlie Hills Immunoglobulin M, Qn, Serum 39 mg/dL Normal 26-217 [facility] Comment on above: Performed By: #### I NFLUAB #### [facility] [address] [place] [address] Dr. Ashlie Hills Ama/Lambda Ratio, S 1.12 Normal 0.26-1.65 [facility] Comment on above: Performed By: #### I NFLUAB #### [facility] [address] [place] [address] Dr. Ashlie Hills M-Bright Not Observed Normal Not Observed [facility] Comment on above: Performed By: #### I NFLUAB #### [facility] [address] [place] [address] Dr. Ashlie Hills PDF . Normal [facility] Comment on above: Performed By: #### I NFLUAB #### [facility] [address] [place] [address] Dr. Ashlie Hills Please note: Comment Normal [facility] Comment on above: Result Comment: Prot ein electrophoresis scan will follow via computer, mail, or physical therapy asst delivery. Performed By: #### I NFLUAB #### [facility] [address] [address] [address] Ashlie Hills Protein [Mass/Vol] 6.9 g/dL Normal 6.0-8.5 [facility] Comment on above: Performed By: #### I NFLUAB #### [facility] [address] [place] [address] Dr. Ashlie Hills C-PEPTIDE, SERUMon C-Peptide, Serum 3.1 ng/mL Normal 1.1-4.4 [facility] Comment on above: Result Comment: C-Pe ptide reference interval is for fasting patients. Performed By: #### C PEPT #### [facility] [address] [place] [address] Dr. Ashlie Hills HEP B SURFACE ANTIGEN SCREEN on 03-04-2022 HBsAg Screen Negative Normal Negative [facility] Comment on above: Performed By: #### C BC #### [facility] [address] [place] [address] Dr. Ashlie Hills HEPATITIS C VIRUS AB W/ REFL EX QUANTon 03-04-2022 HCV AB <0.1 Normal 0.0-0.9 [facility] Comment on above: Performed By: #### I NFLUAB #### [facility] [address] [place] [address] Dr. Ashlie Hills Interpretation: Comment Normal [facility] Comment on above: Result Comment: Nega tive Not infected with HCV, unless recent infection is suspected or other evidence exists to indicate HCV infection. Performed By: #### I NFLUAB #### [facility] [address] [place] [address] Dr. Ashlie Hills MICROALBUMIN/ CREATININE RAT IOon 03-04-2022 Albumin, Urine 367.4 ug/mL Normal Not Estab. [facility] Comment on above: Performed By: #### C BC #### [facility] [address] [place] [address] Dr. Ashlie Hills Albumin/ Creatinine Ratio 239 mg/g creat Critically high 0-29 [facility] Comment on above: Result Comment: Norm al: 0 - 29 Moderately increased: 30 - 300 Severely increased: >300 Performed By: #### C BC #### [facility] [address] [address] [address] Ashlie Hills Creatinine, Urine 153.9 mg/dL Normal Not Estab. [facility] Comment on above: Performed By: #### C BC #### [facility] [address] [address] [address] Ashlie Hills VIT D 25-OH LABCORPon 2021 Vitamin D, 25-Hydroxy <4.0 Critically low 30.0-100.0 [facility] Comment on above: Result Comment: Graciela min D deficiency has been defined by the [place] of Medicine and an Endocrine Society practice guideline as a level of serum 25-OH vitamin D less than 20 ng/mL (1,2). The Endocrine Society went on to further define vitamin D insufficiency as a level between 21 and 29 ng/mL (2). 1. IOM ([place] of [employer]). 2010. Dietary reference intakes for calcium and D. [place]: The National Academies Press. 2. Lynda MF, Keely [place], Leandra LOPEZ, et al. Evaluation, treatment, and prevention of vitamin D deficiency: an Endocrine Society clinical practice guideline. JCEM. 2010; 96(7):1911-30. Performed By: #### C BC #### [facility] [address] [address] [address] Ashlie Hills GLYCOHEMOGLOBIN A1Con 2021 ADA RECOMMENDATION SEE BELOW Normal [facility] Comment on above: Result Comment: ADA RECOMMENDED LIMIT 4.0 - 6.0 ADA THERAPEUTIC TARGET < 7.0 ACTION SUGGESTED > 7.0 Performed By: #### C VDAGS #### [facility] [address] [address] [address] Ashlie Hills Glucose [Mass/Vol] 295 mg/dL Normal [facility] Comment on above: Performed By: #### C VDAGS #### [facility] [address] [place] [address] Dr. Ashlie Hills HbA1c (Bld) [Mass fraction] 11.9 % Critically high 4.5-6.2 [facility] Comment on above: Performed By: #### C VDAGS #### [facility] [address] [place] [address] Dr. Ashlie Hills HEMOGRAM AND PLATELon 2021 Hematocrit (Bld) [Volume fraction] 56.3 % Critically high 36.0-48.0 [facility] Comment on above: Performed By: #### C VDAGS #### [facility] [address] [place] [address] Dr. Ashlie Hills Hemoglobin (Bld) [Mass/Vol] 18.0 g/dL Critically high 12.0-16.0 [facility] Comment on above: Performed By: #### C VDAGS #### [facility] [address] [place] [address] Dr. Ashlie Hills MCH (RBC) [Entitic mass] 29.5 pg Normal 26.7-34.0 [facility] Comment on above: Performed By: #### C VDAGS #### [facility] [address] [place] [address] Dr. Ashlie Hills MCHC (RBC) [Mass/Vol] 32.0 g/dL Normal 29.9-35.2 [facility] Comment on above: Performed By: #### C VDAGS #### [facility] [address] [place] [address] Dr. Ashlie Hills MCV (RBC) [Entitic vol] 92.1 fL Normal 81.0-99.0 [facility] Comment on above: Performed By: #### C VDAGS #### [facility] [address] [place] [address] Dr. Ashlie Hills PLT 123 103/ul Critically low 150-450 [facility] Comment on above: Performed By: #### C VDAGS #### [facility] [address] [place] [address] Dr. Ashlie Hills RBC 6.11 106/ul Critically high 4.20-5.40 [facility] Comment on above: Performed By: #### C VDAGS #### [facility] [address] [place] [address] Dr. Ashlie Hills WBC 16.4 103/ul Critically high 4.0-11.0 [facility] Comment on above: Performed By: #### C VDAGS #### [facility] [address] [place] [address] Dr. Ashlie Hills LIPID PROFILEon 03-03-2022 CHOL-HDL RATIO NORM SEE BELOW Normal [facility] Comment on above: Result Comment: 3.3 - 4.4 LOW RISK 4.4 - 7.1 AVERAGE RISK 7.1 - 11.0 MODERATE RISK >11.0 HIGH RISK Performed By: #### C VDAGS #### [facility] [address] [place] [address] Dr. Ashlie Hills Cholesterol [Mass/Vol] 159 mg/dL Normal <=200 [facility] Comment on above: Performed By: #### C VDAGS #### [facility] [address] [place] [address] Dr. Ashlie Hills Cholesterol in HDL [Mass/Vol] 40 mg/dL Normal 40-60 [facility] Comment on above: Performed By: #### C VDAGS #### [facility] [address] [place] [address] Dr. Ashlie Hills Cholesterol in LDL [Mass/Vol] 81.8 mg/dL Normal [facility] Comment on above: Performed By: #### C VDAGS #### [facility] [address] [place] [address] Dr. Ashlie Hills Cholesterol.total/Gianna sterol in HDL [Mass ratio] 4.0 {ratio} Normal [facility] Comment on above: Performed By: #### C VDAGS #### [facility] [address] [place] [address] Dr. Ashlie Hills HDL NORMAL > or = 60 mg/dl - LOW CARDIOVASCULAR RISK <40 mg/dl - HIGH CARDIOVASCULAR RISK Normal [facility] Comment on above: Performed By: #### C VDAGS #### [facility] [address] [address] [address] Ashlie Hills LDL CALC NORMAL SEE BELOW Normal [facility] Comment on above: Result Comment: <100 mg/dl OPTIMAL 100 - 129 mg/dl NEAR OR ABOVE OPTIMAL 130 - 159 mg/dl BORDERLINE HIGH 160 - 189 mg/dl HIGH >190 mg/dl VERY HIGH Performed By: #### C VDAGS #### [facility] [address] [address] [address] Ashlie Hills Triglyceride [Mass/Vol] 186 mg/dL Critically high <=150 [facility] Comment on above: Performed By: #### C VDAGS #### [facility] [address] [place] [address] Dr. Ashlie Hills VLDL CALC 37.2 mg/dL Normal [facility] Comment on above: Performed By: #### C VDAGS #### [facility] [address] [place] [address] Dr. Ashlie Hills RENAL FUNCTION PANELon 03-03 Albumin [Mass/Vol] 3.1 g/dL Critically low 3.4-5.0 [facility] Comment on above: Performed By: #### C BC #### [facility] [address] [place] [address] Dr. Ashlie Hills Calcium [Mass/Vol] 9.2 mg/dL Normal 8.5-10.1 [facility] Comment on above: Performed By: #### C BC #### [facility] [address] [place] [address] Dr. Ashlie Hills Chloride [Moles/Vol] 102 mmol/L Normal 98-107 [facility] Comment on above: Performed By: #### C BC #### [facility] [address] [place] [address] Dr. Ashlie Hills CO2 [Moles/Vol] 31.9 mmol/L Normal 21.0-32.0 [facility] Comment on above: Performed By: #### C BC #### [facility] [address] [place] [address] Dr. Ashlie Hills Creatinine [Mass/Vol] 0.68 mg/dL Normal 0.55-1.02 [facility] Comment on above: Performed By: #### C BC #### [facility] [address] [address] [address] Ashlie Hills EGFR-AF MOSOTHO >60 Normal >=60 [facility] Comment on above: Performed By: #### C BC #### [facility] [address] [address] [address] Ashlie Hills EGFR-NON AF MOSOTHO >60 Normal >=60 [facility] Comment on above: Performed By: #### C BC #### [facility] [address] [address] [address] Ashlie Hills Glucose [Mass/Vol] 131 mg/dL Critically high 74-106 [facility] Comment on above: Performed By: #### C BC #### [facility] [address] [place] [address] Dr. Ashlie Hills Phosphate [Mass/Vol] 4.0 mg/dL Normal 2.6-4.7 [facility] Comment on above: Performed By: #### C BC #### [facility] [address] [place] [address] Dr. Ashlie Hills Potassium [Moles/Vol] 4.0 mmol/L Normal 3.5-5.1 [facility] Comment on above: Performed By: #### C BC #### [facility] [address] [address] [address] Ashlie Hills Sodium [Moles/Vol] 141 mmol/L Normal 136-145 [facility] Comment on above: Performed By: #### C BC #### [facility] [address] [place] [address] Dr. Ashlie Hills Urea nitrogen [Mass/Vol] 17.0 mg/dL Normal 7.0-18.0 [facility] Comment on above: Performed By: #### C BC #### [facility] [address] [place] [address] Dr. Ashlie Hills UA RANDOM W/MICROSCOPICon BACTERIA NONE SEEN Normal NONE SEEN [facility] Comment on above: Performed By: #### I NFLUAB #### [facility] [address] [address] [address] Ashlie Hills Bilirubin Ql (U) Negative Normal NEGATIVE [facility] Comment on above: Performed By: #### I NFLUAB #### [facility] [address] [address] [address] Ashlie Hills CAST NONE SEEN Normal NONE SEEN [facility] Comment on above: Performed By: #### I NFLUAB #### [facility] [address] [place] [address] Dr. Ashlie Hills Clarity (U) CLEAR Normal CLEAR [facility] Comment on above: Performed By: #### I NFLUAB #### [facility] [address] [place] [address] Dr. Ashlie Hills Color (U) YELLOW Normal YELLOW [facility] Comment on above: Performed By: #### I NFLUAB #### [facility] [address] [place] [address] Dr. Ashlie Hills Crystals LM Nom (Urine sed) NONE SEEN Normal NONE SEEN [facility] Comment on above: Performed By: #### I NFLUAB #### [facility] [address] [place] [address] Dr. Ashlie Hills Epithelial cells LM Ql (Urine sed) FEW Abnormal NONE SEEN /RARE [facility] Comment on above: Performed By: #### I NFLUAB #### [facility] [address] [place] [address] Dr. Ashlie Hills Glucose Ql (U) Negative Normal NEGATIVE [facility] Comment on above: Performed By: #### I NFLUAB #### [facility] [address] [address] [address] Ashlie Hills Hemoglobin Ql (U) Negative Normal NEGATIVE [facility] Comment on above: Performed By: #### I NFLUAB #### [facility] [address] [address] [address] Ashlie Hills Ketones Ql (U) Negative Normal NEGATIVE [facility] Comment on above: Performed By: #### I NFLUAB #### [facility] [address] [place] [address] Dr. Ashlie Hills LEUKOCYTES Negative Normal NEGATIVE [facility] Comment on above: Performed By: #### I NFLUAB #### [facility] [address] [place] [address] Dr. Ashlie Hills MUCOUS NONE SEEN Normal NONE SEEN [facility] Comment on above: Performed By: #### I NFLUAB #### [facility] [address] [place] [address] Dr. Ashlie Hills Nitrite Ql (U) Negative Normal NEGATIVE [facility] Comment on above: Performed By: #### I NFLUAB #### [facility] [address] [place] [address] Dr. Ashlie Hills pH (U) 5.5 [pH] Normal 5-9 [facility] Comment on above: Performed By: #### I NFLUAB #### [facility] [address] [place] [address] Dr. Ashlie Hills RBC 0-2 Normal 0-2 [facility] Comment on above: Performed By: #### I NFLUAB #### [facility] [address] [place] [address] Dr. Ashlie Hills SPEC GRAVITY >=1.030 Abnormal 1.005-<=1.025 [facility] Comment on above: Performed By: #### I NFLUAB #### [facility] [address] [place] [address] Dr. Ashlie Hills UA PROTEIN 100 mg/dl Abnormal NEGATIVE/ TRACE [facility] Comment on above: Performed By: #### I NFLUAB #### [facility] [address] [place] [address] Dr. Ashlie Hills Urobilinogen Qn (U) 0.2 {Little'U}/dL Normal 0.2 - 1. 0 [facility] Comment on above: Performed By: #### I NFLUAB #### [facility] [address] [place] [address] Dr. Ashlie Hills WBC NONE SEEN Normal NONE SEEN [facility] Comment on above: Performed By: #### I NFLUAB #### [facility] [address] [place] [address] Dr. Ashlie Hills URIC ACID SERUMon 03-03-2022 Urate [Mass/Vol] 5.0 mg/dL Normal 2.6-6.0 [facility] Comment on above: Performed By: #### I NFLUAB #### [facility] [address] [place] [address] Dr. Ashlie Hills URINE T PROTEIN CREAT RATIOo n 03-03-2022 Protein (U) [Mass/Vol] 77.9 mg/dL Critically high <=12.0 [facility] Comment on above: Performed By: #### C VDAGS #### [facility] [address] [place] [address] Dr. Ashlie Hills UR PROT CREAT RAT 0.44 Normal [facility] Comment on above: Performed By: #### C VDAGS #### [facility] [address] [place] [address] Dr. Ashlie Hills URINE CREAT 175.15 mg/dL Normal 20.00-300.00 [facility] Comment on above: Performed By: #### C VDAGS #### [facility] [address] [place] [address] Dr. Ashlie Hills CULTURE URINEon 12-25-2021 CULTURE URINE Culture Observations: GREATER THAN TWO ORGANISMS PRESENT, HEAVILY MIXED. PLEASE RESUBMIT CLEAN CATCH MID-STREAM URINE IF CLINICALLY INDICATED. Normal [facility] Comment on above: Performed By: #### I NFLUAB #### [facility] [address] [place] [address] Dr. Ashlie Hills CBC AUTO DIFFon 12-24-2021 BASO # 0.1 103/ul Normal 0.0-0.1 [facility] Comment on above: Performed By: #### C BC #### [facility] [address] [place] [address] Dr. Ashlie Hills Basophils/100 WBC (Bld) 0.5 % Normal 0.2-2.0 [facility] Comment on above: Performed By: #### C BC #### [facility] [address] [address] [address] Ashlie Hills EO # 0.4 103/ul Normal 0.0-0.7 [facility] Comment on above: Performed By: #### C BC #### [facility] [address] [place] [address] Dr. Ashlie Hills Eosinophils/100 WBC (Bld) 2.4 % Normal 0.9-7.0 [facility] Comment on above: Performed By: #### C BC #### [facility] [address] [place] [address] Dr. Ashlie Hills Erythrocyte distribution width (RBC) [Ratio] 14.1 % Normal 11.0-15.0 [facility] Comment on above: Performed By: #### C BC #### [facility] [address] [place] [address] Dr. Ashlie Hills Hematocrit (Bld) [Volume fraction] 55.9 % Critically high 36.0-48.0 [facility] Comment on above: Performed By: #### C BC #### [facility] [address] [place] [address] Dr. Ashlie Hills Hemoglobin (Bld) [Mass/Vol] 17.9 g/dL Critically high 12.0-16.0 [facility] Comment on above: Performed By: #### C BC #### [facility] [address] [place] [address] Dr. Ashlie Hills IG # 0.06 10e3/ul Critically high 0.00-0.03 [facility] Comment on above: Performed By: #### C BC #### [facility] [address] [place] [address] Dr. Ashlie Hills IG % 0.4 % Normal 0.0-0.5 [facility] Comment on above: Performed By: #### C BC #### [facility] [address] [place] [address] Dr. Ashlie Hills LYMPH # 5.8 103/ul Critically high 1.2-3.8 [facility] Comment on above: Performed By: #### C BC #### [facility] [address] [address] [address] Ashlie Hills Lymphocytes/100 WBC (Bld) 35.4 % Normal 20.5-60.0 [facility] Comment on above: Performed By: #### C BC #### [facility] [address] [place] [address] Dr. Ashlie Hills MANUAL DIFF REQ NO Normal [facility] Comment on above: Performed By: #### C BC #### [facility] [address] [address] [address] Ashlie Hills MCH (RBC) [Entitic mass] 29.4 pg Normal 26.7-34.0 [facility] Comment on above: Performed By: #### C BC #### [facility] [address] [place] [address] Dr. Ashlie Hills MCHC (RBC) [Mass/Vol] 32.0 g/dL Normal 29.9-35.2 [facility] [place] [facility] Comment on above: Performed By: #### C BC #### [facility] [address] [place] [address] Dr. Ashlie Hills MCV (RBC) [Entitic vol] 91.8 fL Normal 81.0-99.0 [facility] Comment on above: Performed By: #### C BC #### [facility] [address] [place] [address] Dr. Ashlie Hills MONO # 0.8 103/ul Normal 0.3-0.8 [facility] Comment on above: Performed By: #### C BC #### [facility] [address] [place] [address] Dr. Ashlie Hills Monocytes/100 WBC (Bld) 4.8 % Normal 1.7-12.0 [facility] Comment on above: Performed By: #### C BC #### [facility] [address] [place] [address] Dr. Ashlie Hills NEUT # 9.3 103/ul Critically high 1.4-6.5 [facility] Comment on above: Performed By: #### C BC #### [facility] [address] [address] [address] Ashlie Hills Neutrophils/100 WBC (Bld) 56.5 % Normal 43.0-75.0 [facility] Comment on above: Performed By: #### C BC #### [facility] [address] [address] [address] Ashlie Hills Platelet mean volume (Bld) [Entitic vol] 12.9 fL Normal 9.5-13.5 [facility] Comment on above: Performed By: #### C BC #### [facility] [address] [address] [address] Ashlie Hills PLT 127 103/ul Critically low 150-450 [facility] Comment on above: Performed By: #### C BC #### [facility] [address] [address] [address] Ashlie Hills RBC 6.09 106/ul Critically high 4.20-5.40 [facility] Comment on above: Performed By: #### C BC #### [facility] [address] [address] [address] Ashlie Hills WBC 16.4 103/ul Critically high 4.0-11.0 [facility] Comment on above: Performed By: #### C BC #### [facility] [address] [place] [address] ABD/PELVIS WO CONon [...] right hip degenerative change. Normal [facility] URINE PROFILEon 2 Bilirubin Ql (U) Negative Normal NEGATIVE [facility] Comment on above: Performed By: #### E EVONNE LYMAN #### [facility] [address] [address] [address] Ashlie Hills Clarity (U) CLEAR Normal CLEAR [facility] Comment on above: Performed By: #### E EVONNE LYMAN #### [facility] [address] [place] [address] Dr. Ashlie Hills Color (U) DK. ORANGE Abnormal YELLOW [facility] Comment on above: Performed By: #### MADELINE DIAZRO #### [facility] [address] [place] [address] Dr. Ashlie HOBBS A micrscopic examination will be performed if indicated. Normal [facility] Comment on above: Performed By: #### PEREZ DIAZICRO #### [facility] [address] [place] [address] Dr. Ashlie Hills Glucose Ql (U) 250 mg/dl Abnormal NEGATIVE [facility] Comment on above: Performed By: #### MADELINE DIAZRO #### [facility] [address] [place] [address] Dr. Ashlie Hills Hemoglobin Ql (U) Negative Normal NEGATIVE [facility] Comment on above: Performed By: #### PEREZ DIAZICRO #### [facility] [address] [place] [address] Dr. Ashlie Hills Ketones Ql (U) Negative Normal NEGATIVE [facility] Comment on above: Performed By: #### MADELINE DIAZRO #### [facility] [address] [place] [address] Dr. Ashlie Hills LEUKOCYTES Negative Normal NEGATIVE [facility] Comment on above: Performed By: #### PEREZ DIAZICRO #### [facility] [address] [place] [address] Dr. Ashlie Hills Nitrite Ql (U) Negative Normal NEGATIVE [facility] Comment on above: Performed By: #### PEREZ DIAZICRO #### [facility] [address] [place] [address] Dr. Ashlie Hills pH (U) 5.0 [pH] Normal 5-9 [facility] Comment on above: Performed By: #### PEREZ DIAZICRO #### [facility] [address] [place] [address] Dr. Ashlie Hills Protein (U) [Mass/Vol] 100 mg/dL Abnormal NEGAT YURY/ TRACE [facility] Comment on above: Performed By: #### E MADELINE LYMANRO #### [facility] [address] [place] [address] Dr. Ashlie Hills SPEC GRAVITY >=1.030 Abnormal 1.005-<=1.025 [facility] Comment on above: Performed By: #### MADELINE DIAZRO #### [facility] [address] [place] [address] Dr. Ashlie Hills UR MICRO IND INDICATED Normal [facility] Comment on above: Performed By: #### MADELINE DIAZRO #### [facility] [address] [place] [address] Dr. Ashlie Hills Urobilinogen Qn (U) 1.0 {Little'U}/dL Normal 0.2 - 1. 0 [facility] Comment on above: Performed By: #### MADELINE DIAZRO #### [facility] [address] [place] [address] Dr. Ashlie Hills PROF CHEM 8 (BAS METB)on Anion gap [Moles/Vol] 12.1 mmol/L Normal [facility] Comment on above: Performed By: #### I NFLUAB #### [facility] [address] [place] [address] Dr. Ashlie Hills Calcium [Mass/Vol] 9.0 mg/dL Normal 8.5-10.1 [facility] Comment on above: Performed By: #### I NFLUAB #### [facility] [address] [place] [address] Dr. Ashlie Hills Chloride [Moles/Vol] 101 mmol/L Normal 98-107 [facility] Comment on above: Performed By: #### I NFLUAB #### [facility] [address] [place] [address] Dr. Ashlie Hills CO2 [Moles/Vol] 29.1 mmol/L Normal 21.0-32.0 [facility] Comment on above: Performed By: #### I NFLUAB #### [facility] [address] [address] [address] Ashlie Hills Creatinine [Mass/Vol] 0.86 mg/dL Normal 0.55-1.02 [facility] Comment on above: Performed By: #### I NFLUAB #### [facility] [address] [place] [address] Dr. Ashlie Hills EGFR-AF MOSOTHO >60 Normal >=60 [facility] Comment on above: Performed By: #### I NFLUAB #### [facility] [address] [address] [address] Ashlie Hills EGFR-NON AF MOSOTHO >60 Normal >=60 [facility] Comment on above: Performed By: #### I NFLUAB #### [facility] [address] [place] [address] Dr. Ashlie Hills Glucose [Mass/Vol] 236 mg/dL Critically high 74-106 [facility] Comment on above: Performed By: #### I NFLUAB #### [facility] [address] [place] [address] Dr. Ashlie Hills Potassium [Moles/Vol] 4.2 mmol/L Normal 3.5-5.1 [facility] Comment on above: Performed By: #### I NFLUAB #### [facility] [address] [place] [address] Dr. Ashlie Hills Sodium [Moles/Vol] 138 mmol/L Normal 136-145 [facility] Comment on above: Performed By: #### I NFLUAB #### [facility] [address] [place] [address] Dr. Ashlie Hills Urea nitrogen [Mass/Vol] 11.0 mg/dL Normal 7.0-18.0 [facility] Comment on above: Performed By: #### I NFLUAB #### [facility] [address] [place] [address] Dr. Ashlie Hills Urea nitrogen/Creatinine [Mass ratio] 12.8 mg/mg Normal [facility] Comment on above: Performed By: #### I NFLUAB #### [facility] [address] [place] [address] Dr. Ashlie Hills URINE MICROSCOPIC ONLYon BACTERIA SMALL Abnormal NONE SEEN [facility] Comment on above: Performed By: #### E RUR, UMICRO #### [facility] [address] [place] [address] Dr. Ashlie Hills Bacteria identified Cx Nom (U) INDICATED Normal [facility] Comment on above: Performed By: #### E RUR, UMICRO #### [facility] [address] [place] [address] Dr. Ashlie Hills CAST NONE SEEN Normal NONE SEEN [facility] Comment on above: Performed By: #### E RUR, UMICRO #### [facility] [address] [place] [address] Dr. Ashlie Hills Crystals LM Nom (Urine sed) NONE SEEN Normal NONE SEEN [facility] Comment on above: Performed By: #### E RUR, UMICRO #### [facility] [address] [place] [address] Dr. Ashlie Hills Epithelial cells LM Ql (Urine sed) MODERATE Abnormal NONE SEEN /RARE [facility] Comment on above: Performed By: #### E RUR, UMICRO #### [facility] [address] [place] [address] Dr. Ashlie Hills MUCOUS NONE SEEN Normal NONE SEEN [facility] Comment on above: Performed By: #### E RUR, UMICRO #### [facility] [address] [place] [address] Dr. Ashlie Hills RBC 0-2 Normal 0-2 [facility] Comment on above: Performed By: #### E RUR, UMICRO #### [facility] [address] [place] [address] Dr. Ashlie Hills WBC 0-2 Abnormal NONE SEEN [facility] Comment on above: Performed By: #### E RUR, UMICRO #### [facility] [address] [place] [address] Dr. Ashlie Hills YEAST PRESENT Abnormal NONE SEEN [facility] Comment on above: Performed By: #### E RUR, UMICRO #### [facility] [address] [place], [place] [address] Dr. Ashlie Hills HIP RIGHT 1 OR 2 VWS WITH PE LVISon 07-20-2020 HIP RIGHT 1 OR 2 VWS WITH PELVIS [facility] Department of Radiology [address] [place] [id number] Patient Name: MITZI MACIAS : 1970 [...] MRI. Electronically signed: Pipo Acevedo. Transcribed by: [email or web address], User Resident: Electronically Signed by: PIPO ACEVEDO @ 07/20/2020 03:45 PM Normal [facility] Comment on above: Order Comment: evalu ate Vital Signs Date Time Vital Sign Value Performing Clinician Facility 10-27-2024 [id number] Body height 170.2 cm Mckayla Blas [employer] Work Phone: [facility] 10-27-2024 14:11-0400 Body mass index (BMI) [Ratio] 56.51 kg/m2 Mckayla Blas [employer] TE[employer] Work Phone: [facility] 10-27-2024 14:11-0400 Body temperature 98.71 [degF] Mckayla Blas [employer] TEACHER Work Phone: [facility] 10-27-2024 [id number] Body weight 163.66 kg Mckayla Blas [employer] TE[employer]ER Work Phone: [facility] 10-27-2024 14:11-0400 Diastolic blood pressure 74 mm[Hg] Mckayla Blas [employer] TE[employer]ER Work Phone: [facility] 10-27-2024 14:11-0400 Heart rate 75 /min Mckayla Blas GROUP TEACHER Work Phone: [facility] 10-27-2024 14:11-0400 Respiratory rate 18 /min Mckayla Blas GROUP TEACHER Work Phone: [facility] 10-27-2024 14:11-0400 SaO2% (BldA) [Mass fraction] 90 % Mckayla Blas GROUP TEACHER Work Phone: [facility] 10-27-2024 14:11-0400 Systolic blood pressure 132 mm[Hg] Mckayla Blas GROUP TEACHER Work Phone: [facility] 10-08-2024 [id number] Body height 170.2 cm Rain Souza MD Work Phone: [facility] 10-08-2024 11:21-0400 Body mass index (BMI) [Ratio] 55.91 kg/m2 Rain Souza MD Work Phone: [facility] 10-08-2024 11:21-0400 Body weight 161.93 kg Rain Souza MD Work Phone: [facility] 10-08-2024 11:21-0400 Diastolic blood pressure 70 mm[Hg] Rain Souza MD Work Phone: [facility] 10-08-2024 11:21-0400 Heart rate 70 /min Rain Souza MD Work Phone: [facility] 10-08-2024 11:21-0400 Respiratory rate 16 /min Rain Souza MD Work Phone: [facility] 10-08-2024 11:21-0400 SaO2% (BldA) [Mass fraction] 91 % Rain Souza MD Work Phone: [facility] 10-08-2024 11:21-0400 Systolic blood pressure 130 mm[Hg] Rain Souza MD Work Phone: [facility] 08-27-2024 17:44-0500 Body mass index (BMI) [Ratio] 57.31 kg/m2 Mckayla Blas GROUP TEACHER Work Phone: [facility] 08-27-2024 17:44-0500 Body temperature 98.01 [degF] Mckayla Blas GROUP TEACHER Work Phone: [facility] 08-27-2024 17:44-0500 Body weight 165.97 kg Mckayla Blas GROUP TEACHER Work Phone: [facility] 08-27-2024 17:44-0500 Diastolic blood pressure 76 mm[Hg] Mckayla Blas GROUP TEACHER Work Phone: [facility] 08-27-2024 17:44-0500 Heart rate 83 /min Mckaylataryn Blas GROUP TEACHER Work Phone: [facility] 08-27-2024 17:44-0500 Respiratory rate 18 /min Mckayla Wan GROUP TEACHER Work Phone: [facility] 08-27-2024 17:44-0500 SaO2% (BldA) [Mass fraction] 91 % Mckayla Blas GROUP TEACHER Work Phone: [facility] 08-27-2024 17:44-0500 Systolic blood pressure 134 mm[Hg] Mckayla Wan GROUP TEACHER Work Phone: [facility] 06-11-2024 10:00-0500 Blood Pressure Location Elbert ARAUZ [facility] 06-11-2024 10:00-0500 Diastolic blood pressure 68 mm[Hg] Elbert ARAUZ [facility] 06-11-2024 10:00-0500 Heart rate 76 /min Elbert ARAUZ [facility] 06-11-2024 10:00-0500 Systolic blood pressure 132 mm[Hg] Elbert ARAUZ [facility] 05-27-2024 10:20-0500 Body height 170.2 cm Rain Souza MD Work Phone: [facility] 05-27-2024 10:20-0500 Body mass index (BMI) [Ratio] 56.7 kg/m2 Rain Souza MD Work Phone: [facility] 05-27-2024 10:20-0500 Body weight 164.2 kg Rain Souza MD Work Phone: [facility] 05-27-2024 10:20-0500 Diastolic blood pressure 66 mm[Hg] Rain Souza MD Work Phone: [facility] 05-27-2024 10:20-0500 Heart rate 72 /min Rain Souza MD Work Phone: [facility] 05-27-2024 10:20-0500 Respiratory rate 16 /min Rain Souza MD Work Phone: [facility] 05-27-2024 10:20-0500 Systolic blood pressure 128 mm[Hg] Rain Souza MD Work Phone: [facility] 04-14-2024 10:27-0400 Body height 165.1 cm Mckaylataryn Sowdona GROUP TEACHER Work Phone: [facility] 04-14-2024 10:27-0400 Body mass index (BMI) [Ratio] 61.01 kg/m2 Mckayla Aichholz GROUP TEACHER Work Phone: [facility] 04-14-2024 10:27-0400 Body temperature 98.49 [degF] Mckayla Juanjosehholz GROUP TEACHER Work Phone: [facility] 04-14-2024 10:27-0400 Body weight 166.29 kg Mckayla Harshadholz GROUP TEACHER Work Phone: [facility] 04-14-2024 10:27-0400 Diastolic blood pressure 80 mm[Hg] Mckayla Aichholz GROUP TEACHER Work Phone: [facility] 04-14-2024 10:27-0400 Heart rate 77 /min Mckayla Aichholz GROUP TEACHER Work Phone: [facility] 04-14-2024 10:27-0400 Respiratory rate 19 /min Mckayla Aichholz GROUP TEACHER Work Phone: [facility] 04-14-2024 10:27-0400 SaO2% (BldA) [Mass fraction] 92 % Mckayla Aichholz GROUP TEACHER Work Phone: [facility] 04-14-2024 10:27-0400 Systolic blood pressure 116 mm[Hg] Mckayla Juanjosehholz GROUP TEACHER Work Phone: [facility] 03-08-2022 15:00-0400 Body height 170.18 cm Stephanie Tico Other [facility] Other 03-08-2022 15:00-0400 Body temperature 97.6 [degF] Stephanie Tico Other [facility] Other 03-08-2022 15:00-0400 Diastolic blood pressure 72 mm[Hg] Stephanie Tico Other [facility] Other 03-08-2022 15:00-0400 Respiratory rate 20 /min Stephanie Tico Other [facility] Other 03-08-2022 15:00-0400 SaO2% (BldA) [Mass fraction] 91 % Stephanie Tico Other [facility] Other 03-08-2022 15:00-0400 Systolic blood pressure 131 mm[Hg] Stephanie Tico Other [facility] Other 02-20-2022 09:20-0400 Body height 170.18 cm Stephanie Tico Other [facility] Other 02-20-2022 09:20-0400 Body temperature 96.5 [degF] Stephanie Tico Other [facility] Other 02-20-2022 09:20-0400 Diastolic blood pressure 69 mm[Hg] Stephanie Tico Other [facility] Other 02-20-2022 09:20-0400 Respiratory rate 20 /min Stephanie Tico Other [facility] Other 02-20-2022 09:20-0400 SaO2% (BldA) [Mass fraction] 91 % Stephanie Tico Other [facility] Other 02-20-2022 09:20-0400 Systolic blood pressure 129 mm[Hg] Stephanie Tico Other [facility] Other 02-06-2022 10:24-0400 Blood Pressure Location Elbert ARAUZ [facility] 02-06-2022 10:24-0400 Diastolic blood pressure 76 mm[Hg] Elbert ARAUZ [facility] 02-06-2022 10:24-0400 Heart rate 70 /min Elbert ARAUZ [facility] 02-06-2022 10:24-0400 Respiratory rate 16 /min Elbert ARAUZ [facility] 02-06-2022 10:24-0400 Systolic blood pressure 134 mm[Hg] Elbert ARAUZ [facility] Encounters Encounter Date Encounter Type Care Provider Facility Start: 10-27-2024 End: 10-27-2024 ambulatory MCKAYLA BLAS Not Available Start: 10-27-2024 End: 10-27-2024 Office outpatient visit 25 minutes Mckayla Blas GROUP TEACHER Work Phone: [facility] Comment on above: Primary hypertension (CMS/HCC) (Primary Dx); Diabetic polyneuropathy associated with type 2 diabetes mellitus (CMS/HCC); Chronic diastolic heart failure (CMS/HCC); Bilateral lower extremity edema; Morbid (severe) obesity due to excess calories (CMS/HCC); Type 2 diabetes mellitus with complication, with long-term current use of insulin (CMS/HCC); Anxiety and depression (CMS/HCC); Cigarette nicotine dependence without complication; Encounter for screening mammogram for malignant neoplasm of breast; Insomnia; Non-seasonal allergic rhinitis, unspecified trigger; Type 2 diabetes mellitus with unspecified complications; Vitamin D deficiency, unspecified; Gastro-esophageal reflux disease without esophagitis; PAD (peripheral artery disease) (CMS/HCC); Gastroesophageal reflux disease, unspecified whether esophagitis present; Venous ulcer of right leg (CMS/HCC) Start: 10-21-2024 End: 10-21-2024 Refill Mckayla Blas NP Work Phone: [facility] Comment on above: Chronic obstructive pulmonary disease, unspecified Start: 10-08-2024 End: 10-08-2024 Clinisync Result Encounter Mckayla Blas NP Work Phone: [facility] External Department Unsolicited Start: 10-08-2024 End: 10-08-2024 Clinisync Result Encounter Mckayla Blas NP Work Phone: [facility] External Department Unsolicited Start: 10-08-2024 End: 10-08-2024 Office outpatient visit 25 minutes Rain Souza MD Work Phone: [facility] Comment on above: Type 2 diabetes asiya itus with hyperglycemia, with long-term current use of insulin (CMS/[facility]) (Primary Dx); Encounter for dietary consultation; Vitamin D deficiency; Primary hypertension (CMS/HCC); Insulin long-term use (CMS/HCC); Hyperlipemia, mixed (CMS/HCC); Microalbuminuria; Class 3 severe obesity due to excess calories with serious comorbidity and body mass index (BMI) of 50.0 to 59.9 in adult Start: 10-08-2024 End: 10-08-2024 ambulatory RAIN SOUZA Not Available Start: 08-27-2024 End: 08-27-2024 Office outpatient visit 25 minutes Mckayla Blas NP Work Phone: [facility] Comment on above: Anxiety and depressi on (CMS/HCC) (Primary Dx); Morbid (severe) obesity due to excess calories (CMS/HCC); Body mass index (BMI) 50.0-59.9, adult (CMS/HCC); Malignant neoplasm of cervix uteri, unspecified (CMS/HCC); Diabetic polyneuropathy associated with type 2 diabetes mellitus (CMS/HCC); Chronic diastolic heart failure ([facility]/HCC); Primary hypertension ([facility]); 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 ([facility]); Gastroesophageal reflux disease, unspecified whether esophagitis present; Bilateral lower extremity edema; Type 2 diabetes mellitus with complication, with long-term current use of insulin ([facility]/HCC); Tobacco user; Mixed hyperlipidemia ([facility]); Gout, unspecified cause, unspecified chronicity, unspecified site; Vitamin deficiency; Gastro-esophageal reflux disease without esophagitis; Edema, unspecified; Edema; Hyperlipidemia, unspecified ([facility]); Encounter for smoking cessation counseling; Venous ulcer of right leg ([facility]); Antibiotic-induced yeast infection Start: 08-27-2024 End: 08-27-2024 ambulatory MCKAYLA BLAS Not Available Start: 08-27-2024 End: 08-27-2024 Clinisync Result Encounter Generic External Data Provider [facility] External Department Unsolicited Start: 08-27-2024 End: 08-27-2024 Clinisync Result Encounter Generic External Data Provider [facility] External Department Unsolicited Start: 08-08-2024 End: 08-08-2024 ambulatory [facility] Start: 07-17-2024 End: 07-17-2024 Refill Mckayla Blas NP Work Phone: [facility] Start: 07-14-2024 End: 07-14-2024 Office outpatient visit 25 minutes Mckayla Blas NP Work Phone: [facility] Comment on above: Primary hypertension ([facility]) (Primary Dx); Diabetic polyneuropathy associated with type 2 diabetes mellitus ([facility]); Pulmonary emphysema, unspecified emphysema type ([facility]); Critical limb ischemia of right lower extremity ([facility]); PAD (peripheral artery disease) ([facility]); Gastroesophageal reflux disease, unspecified whether esophagitis present; Bilateral lower extremity edema; Venous ulcer of right leg ([facility]); Type 2 diabetes mellitus with complication, with long-term current use of insulin ([facility]); Tobacco user; Encounter for smoking cessation counseling; Kidney stone; Adrenal mass 1 cm to 4 cm in diameter ([facility]); Radiculopathy, lumbar region; Non-seasonal allergic rhinitis, unspecified trigger; Type 2 diabetes mellitus with unspecified complications ([facility]) Start: 07-14-2024 End: 07-14-2024 ambulatory MCKAYLA AICHHOLZ Not Available Start: 07-05-2024 End: 07-07-2024 Refill Mckayla Aicmickeyz GROUP TEACHER Work Phone: [facility] Comment on above: Bilateral lower extr emity edema Start: 06-11-2024 ambulatory Elbert ARAUZ Facili ty:[facility] [place] Start: 06-11-2024 End: 06-11-2024 Patient encounter procedure Elbert ARAUZ [facility] [place] Start: 05-27-2024 End: 05-27-2024 Bamboo flowsheet Rain Souza MD Work Phone: [facility] Start: 05-27-2024 End: 05-27-2024 Bamboo flowsheet Rain Souza MD Work Phone: [facility] Start: 05-27-2024 End: 05-27-2024 ambulatory RAIN SOUZA Not Available Start: 05-27-2024 End: 05-27-2024 Office outpatient visit 25 minutes Rain Souza MD Work Phone: [facility] Comment on above: Type 2 diabetes asiya itus with hyperglycemia, with long-term current use of insulin ([facility]) (Primary Dx); Encounter for dietary consultation; Vitamin D deficiency; Primary hypertension ([facility]); Insulin long-term use ([facility]); Hyperlipemia, mixed ([facility]); Microalbuminuria; Class 3 severe obesity due to excess calories with serious comorbidity and body mass index (BMI) of 50.0 to 59.9 in adult ([facility]) Start: 05-12-2024 End: 05-12-2024 Clinisync Result Encounter Generic External Data Provider [facility] External Department Unsolicited Start: 05-12-2024 End: 05-12-2024 Clinisync Result Encounter Generic External Data Provider [facility] External Department Unsolicited Start: 05-08-2024 ambulatory SARAH Wilkerson ty:SHEA Wilfredo Start: 04-14-2024 End: 04-14-2024 Bamboo flowsheet Mckaylataryn Blas GROUP TEACHER Work Phone: [facility] Start: 04-14-2024 End: 04-14-2024 Bamboo flowsheet Mckayla Wan GROUP TEACHER Work Phone: [facility] Start: 04-14-2024 End: 04-14-2024 Office outpatient visit 25 minutes Mckayla Blas GROUP TEACHER Work Phone: [facility] Comment on above: Primary hypertension (CMS/HCC) (Primary [...] Start: 04-05-2024 End: 04-06-2024 Refill Mckayla Aichholz GROUP TEACHER Work Phone: [facility] Comment on above: Hyperlipidemia, unsp ecified (CMS/HCC); Bilateral lower extremity edema Vitamin D deficiency , unspecified Start: 01-17-2024 Patient encounter procedure Rain Souza MD Work Phone: [facility] Start: 01-17-2024 End: 01-17-2024 ambulatory MCKAYLA AICHHOLZ Not Available Start: 11-15-2023 End: 11-15-2023 ambulatory MCKAYLA AICHHOLZ Not Available Start: 11-14-2023 End: 11-14-2023 ambulatory [facility] Start: 11-01-2023 End: 11-01-2023 ambulatory MCKAYLATaryn BLAS Not Available Start: 08-17-2023 Refill Mckayla Aichholz GROUP TEACHER Work Phone: [facility] Comment on above: Vaginal yeast infect ion (Primary Dx) Start: 08-14-2023 Refill Mckayla Aichholz GROUP TEACHER Work Phone: [facility] Comment on above: Type 2 diabetes asiya itus with unspecified complications (CMS/[facility]); Edema, unspecified; Edema Start: 12-05-2022 ambulatory NARENDRANSHERITA NICHOLEMIPATHY . Facility:[facility] Start: 12-05-2022 End: 12-06-2022 Evaluation and management of inpatient UMBERTO ALONDRA . Facility:[facility] Start: 11-23-2022 End: 11-23-2022 ambulatory MANAGER MASSAGE DEPARTMENT MCKAYLA AICHHOLZ Facility:[facility] Start: 11-22-2022 End: 11-23-2022 ambulatory MANAGER MASSAGE DEPARTMENT MCKAYLA AICHHOLZ Facility:[facility] Start: 11-17-2022 End: 11-18-2022 ambulatory SUBHASH GASPAR . Facility:[facility] Start: 11-15-2022 End: 11-15-2022 Patient encounter procedure SARAH VEGA [facility] Start: 10-05-2022 End: 10-05-2022 ambulatory MARIANO DIAB . Facility:[facility] Start: 09-21-2022 End: 09-21-2022 ambulatory MANAGER MASSAGE DEPARTMENT MCKAYLA AICHHOLZ Facility:[facility] Start: 09-14-2022 ambulatory RAFAEL Ribera y:[facility] Start: 08-24-2022 End: [address] CHAPARRO MORTENSEN . Facility:[facility] Start: 08-21-2022 End: 08-22-2022 ambulatory HATTIE BRODERICK Facility:[facility] Start: 07-27-2022 End: 07-28-2022 ambulatory CECILIA TORRES . Facility:[facility] Start: 07-18-2022 End: 07-19-2022 ambulatory CECILIA MILANLYTray . Facility:[facility] Start: 07-18-2022 End: 07-19-2022 ambulatory HATTIE Braulio BRODERICK Facility:[facility] Start: 07-06-2022 End: 07-06-2022 ambulatory SAYDA BLAS Facility:[facility] Start: 05-11-2022 End: 05-12-2022 ambulatory GIL VALENZUELA . Facility:[facility] Start: 04-25-2022 End: 04-25-[address] CHAPARRO MORTENSEN . Facility:[facility] Start: 04-20-2022 End: 04-21-2022 ambulatory GIL VALENZUELA . Facility:[facility] Start: 03-08-2022 End: 03-08-2022 ambulatory Stephanie Tico Other [facility] Other Start: 03-08-2022 Office outpatient vi sit 15 minutes Stephanie Tico [facility] Start: 03-03-2022 End: 03-04-2022 ambulatory SAYDA BLAS Facility:[facility] Start: 02-20-2022 End: 02-20-2022 ambulatory Stephanie Tico Other [facility] Other Start: 02-20-2022 Office outpatient ne w 45 minutes Stephanie Tico [facility] Start: 02-06-2022 End: 02-06-2022 Patient encounter procedure Elbert ARAUZ [facility] Start: 01-19-2022 End: 01-20-2022 ambulatory GIL VALENZUELA . Facility:[facility] Start: 12-24-2021 End: 12-24-2021 ambulatory OLE RAMIREZ Facility:[facility] Start: 08-26-2020 End: 09-10-2020 Patient encounter procedure MARY TAVERAS Facility:[facility] Start: 10-30-2019 End: 10-30-2019 Emergency department patient visit JAMES Reis [facility] Start: 10-30-2019 End: 10-30-2019 Emergency department patient visit James Mandujanorogelio [facility] Emergency Department Start: 11-02-2016 Preoperative state Stephanie Cortés Other [facility] [employer] Other Procedures Date Procedure Procedure Detail Performing Clinician Start: 10-08-2024 Gluc bld gluc mntr d ev cleared fda spec home use Rain Souza MD Work Phone: Start: 10-08-2024 [facility] UA (CLEAN/CATCH) MICROSCOPIC IF INDICATE Mckayla Blas GROUP TEACHER Work Phone: Start: 08-27-2024 ALL CBC WITH AUTO DIFF Generic External Data Provider Start: 05-27-2024 Gluc bld gluc mntr d ev cleared fda spec home use Rain Souza MD Work Phone: Start: 05-12-2024 [facility] CREATININE Generic External Data Provider Start: 12-14-2023 Mammography Rain urena MD Work Phone: Start: 11-22-2022 Mammography Mckayla clifford GROUP TEACHER Work Phone: Start: 10-08-2015 Microscopic observat ion [Identifier] in Cervix by Cyto stain Mckayla Blas GROUP TEACHER Work Phone: H/O: hysterectomy Elbert LARA Laparoscopic cholecystectomy Elbert ARAUZ Operative procedure on foot Elbert ARAUZ Plan of Treatment Date Care Activity Detail Author Start: 10-08-2025 Urine screening for protein Diabetes: Urine Protein Screening [facility] Start: 08-03-2025 Screening for malignant neoplasm of colon [facility] Start: 07-14-2025 Glaucoma screening Diabetes: R etinopathy Screening [facility] Start: 05-13-2025 Glaucoma screening Diabetes: R etinopathy Screening [facility] Start: 03-09-2025 Influenza vaccination Influenz a Vaccine (Season Ended) [facility] Start: 01-28-2025 End: 01-28-2025 Patient encounter procedure 01/28/2025 10:50 AM EDT [facility] [address] [place] [address] Rain Souza MD [address] [place] [address] [facility] Start: 01-16-2025 Medicare Annual Wellness (AWV) Medicare Annual Wellness (AWV) [facility] Start: 01-07-2025 Hemoglobin A1c measurement Diabetes: Hemoglobin A1C [facility] Start: 12-15-2024 End: 12-27-2025 MG Breast - bilateral Screening Bilateral screening mammogram Imaging Routine Encounter for screening mammogram for malignant neoplasm of breast Expected: 12/15/2024 (Approximate), Expires: 12/27/2025 [facility] Work Phone: Comment on above: Expected: 12/15/2024 (Approximate), Expires: 12/27/2025 Start: 12-13-2024 Screening for malignant neoplasm of breast Mammogram [facility] Start: 11-11-2024 Urine screening for protein Diabetes: Urine Protein Screening [facility] Start: 10-27-2024 End: 10-27-2024 Patient encounter procedure 10/27/2024 2:00 PM EDT Office Visit [facility] [address] [place] [id number] Mckayla Blas, SILVANO [address] [place] [address] [facility] Start: 10-08-2024 End: 10-08-2024 Patient encounter procedure 10/08/2024 11:20 AM EDT Office Visit [facility] [address] [place] [phone] Rain Souza MD [address] [place] [address] [facility] Start: 08-27-2024 End: 08-27-2024 Patient encounter procedure 08/27/2024 5:30 PM EST Office Visit [facility] [address] [place] [id number] Mckayla Blas NP [address] [place] [address] [facility] Start: 08-27-2024 End: 08-27-2025 25-hydroxyvitamin D3 [Mass/volume] in Serum or Plasma Vitamin D 25 hydroxy Lab Routine Vitamin deficiency Expected: 08/27/2024 (Approximate), Expires: 08/27/2025 [facility] Comment on above: Expected: 08/27/2024 (Approximate), Expires: 08/27/2025 Start: 08-27-2024 Hemoglobin A1c measurement Diabetes: Hemoglobin A1C [facility] Start: 08-27-2024 End: 08-27-2025 Hepatic function 2000 panel - Serum or Plasma Hepatic function panel Lab Routine Hyperlipidemia, unspecified (CMS/HCC) Expected: 08/27/2024 (Approximate), Expires: 08/27/2025 [facility] Comment on above: Expected: 08/27/2024 (Approximate), Expires: 08/27/2025 Start: 08-27-2024 End: 08-27-2025 Lipid 1996 panel - Serum or Plasma Lipid panel Lab Routine Mixed hyperlipidemia (CMS/HCC) Expected: 08/27/2024 (Approximate), Expires: 08/27/2025 [facility] Work Phone: Comment on above: Expected: 08/27/2024 (Approximate), Expires: 08/27/2025 Start: 08-27-2024 End: 08-27-2025 Microalbumin/Creatini ne panel in random Urine Microalbumin / creatinine, urine ratio Lab Routine Primary hypertension (CMS/HCC) Type 2 diabetes mellitus with complication, with long-term current use of insulin (CMS/HCC) Expected: 08/27/2024 (Approximate), Expires: 08/27/[address]25 [facility] Comment on above: Expected: 08/27/2024 (Approximate), Expires: 08/27/2025 Start: 08-27-2024 End: 08-27-2025 Urate [Mass/volume] in Serum or Plasma Uric acid Lab Routine Gout, unspecified cause, unspecified chronicity, unspecified site Expected: 08/27/2024 (Approximate), Expires: 08/27/2025 [facility] Comment on above: Expected: 08/27/2024 (Approximate), Expires: 08/27/2025 Start: 08-27-2024 End: 08-27-2025 Urinalysis complete panel - Urine Urinalysis with reflex microscopic (clean catch) Lab Routine Primary hypertension ([facility]) Type 2 diabetes mellitus with complication, with long-term current use of insulin ([facility]) Tobacco user Gout, unspecified cause, unspecified chronicity, unspecified site Expected: 08/27/2024 (Approximate), Expires: 08/27/2025 [facility] Comment on above: Expected: 08/27/2024 (Approximate), Expires: 08/27/2025 Start: 08-26-2024 End: 08-26-2024 Patient encounter procedure 08/26/2024 10:30 AM EST Office Visit [facility] [address] [place] [phone] Rain Souza MD [address] [place] [address] [facility] Start: 07-14-2024 End: 07-14-2024 Patient encounter procedure 07/14/2024 6:30 PM EST Office Visit [facility] [address] [place] [address] Mckayla Blas NP [address] [place] [address] [facility] Start: 07-14-2024 End: 07-14-2024 Patient encounter procedure 07/14/2024 10:10 AM EST Office Visit [facility] [address] [place] [address] Rain Souza MD [address] [place] [address] [facility] Start: 06-06-2024 Influenza vaccination Influenza Vacc ine (#1) [facility] Comment on above: Postponed from 03/09 (Patient Refused) Start: 05-27-2024 End: 05-27-2024 Patient encounter procedure 05/27/2024 9:50 AM EST Office Visit [facility] [address] [place] [address] Rain Souza MD [address] [place] [address] [facility] Start: 05-17-2024 Hemoglobin A1c measurement Diabetes: Hemoglobin A1C [facility] Start: 05-15-2024 End: 05-15-2024 Chart abstracting 05/15/2024 Abstract [facility] [address] [place] [address] Rain Souza MD [address] [place] [address] [facility] Start: 05-15-2024 End: 05-15-2024 Patient encounter procedure 05/15/2024 11:20 AM EST Office Visit [facility] [address] [place] [phone] Rain Souza MD [address] [place] [address] [facility] Start: 04-17-2024 End: 04-17-2024 Patient encounter procedure 04/17/2024 3:40 PM EDT Office Visit [facility] [address] [place] [address] Mckayla Blas, SILVANO [address] [place] [phone] [facility] Start: 04-14-2024 End: 04-14-2024 Patient encounter procedure 04/14/2024 11:00 AM EDT Office Visit [facility] [address] [place] [address] Mckayla Blas NP [address] [place] [phone] [facility] Comment on above: Arrived Start: 03-09-2024 Influenza vaccination Influenza Vacc ine (#1) [facility] Start: 02-19-2024 Hemoglobin A1c measurement Diabetes: Hemoglobin A1C [facility] Start: 11-24-2023 Urine screening for protein Diabetes: Urine Protein Screening [facility] Start: 11-23-2023 Screening for malignant neoplasm of breast Mammogram [facility] Start: 10-15-2023 End: 10-15-2023 Patient encounter procedure 10/15/2023 4:30 PM EDT Office Visit [facility] [address] [place] [address] Mckayla Blas, SILVANO [address] [place] [phone] [facility] Start: 08-09-2023 Hemoglobin A1c measurement Diabetes: Hemoglobin A1C [facility] Start: 05-27-2021 Glaucoma screening Diabetes: R etinopathy Screening [facility] Start: 03-09-2020 Influenza vaccination Flu vacc ine (Season Ended) [place], [place] Start: 10-07-2018 Screening for malignant neoplasm of cervix [facility] Start: 2010 Lipid panel Lipid screen [place], [place] Start: 2000 Screening for malignant neoplasm of cervix HPV/Cotest [facility] Start: 1991 Screening for malignant neoplasm of cervix Cervical cancer screen [place], [place] Start: 1989 DTaP/Tdap/Td vaccine (1 - Tdap) DTaP/Tdap/Td vaccine (1 - Tdap) [place], [place] Start: 1985 HIV screening HIV screen Shantelle Alvarado [place], [place] Start: 1970 Medicare Annual Wellness (AWV) Medicare Annual Wellness (AWV) [facility] Start: 1970 Screening for malignant neoplasm of colon [facility] Immunizations Immunization Date Immunization Notes Care Provider [facility] 05-18-2023 influenza, injectabl e, quadrivalent, contains preservative Mckayla Blas GROUP TE[employer]ER Work Phone: [facility] 05-18-2023 influenza virus vacc ine, unspecified formulation Rain Souza MD Work Phone: [facility] 07-19-2021 SARS-CoV-2 (COVID-19 ) mRNA BNT-162b2 vax [employer] [facility] 10-28-2020 SARS-CoV-2 (COVID-19 ) mRNA BNT-162b2 vax [employer] [facility] 10-08-2020 SARS-CoV-2 (COVID-19 ) mRNA BNT-162b2 vax [employer] [facility] 04-16-2017 influenza virus vacc ine, H5N1, A/[place]/ (national stockpile) Mckayla Blas GROUP TEACHER Work Phone: [facility] 04-16-2017 influenza virus vacc ine, unspecified formulation Rain Souza MD Work Phone: [facility] 04-16-2017 influenza, unspecifi ed formulation Elbert ARAUZ [facility] 04-16-2017 pneumococcal polysaccharide vaccine, 23 valent Rain Souza MD Work Phone: [facility] 05-10-2016 influenza virus vacc ine, H5N1, A/[place] (national stockpile) Mckayla Blas NP Work Phone: [facility] 05-10-2016 influenza virus vacc ine, unspecified formulation Rain Souza MD Work Phone: [facility] 05-10-2016 influenza, unspecifi ed formulation Elbert ARAUZ [facility] 05-02-2013 influenza virus vacc ine, whole virus Rain Souza MD Work Phone: [facility] 05-02-2013 influenza, injectabl e, quadrivalent, contains preservative Mckayla Blas NP Work Phone: [facility] 05-02-2013 influenza, whole Elbert BARBARA ARAMBULA [facility] 01-29-1998 measles, mumps and rubella virus vaccine Rain Souza MD Work Phone: [facility] Payers Date Payer Category Payer Medicare (Managed Care) [employer] [id number] 2023 Private Health Insurance [facility] [id number] 2023-Present [address] [address] [place] [address] [id number] 2023 Medicare [id number] 2023 Private Health Insurance [id number] 2018 Medicaid MEDICAID [facility] [id number] 2018-Present [phone] [address] [place] [address] Medicaid [id number] 2017 Medicare [id number] [id number]. [id number] 1970 Unknown [id number] 2.16.840.1.487904.3.579.2. 647 1970 Unknown [id number] 2.16.840.1.160052.3.579.2. 593 1970 Unknown [id number] 2.16.840.1.963062.3.579.2. 593 1970 Unknown [id number] 2.16.840.1.918499.3.579.2. 593 1970 Unknown [id number] 2.16.840.1.570999.3.579.2. 593 1970 Unknown [id number] 2.16.840.1.891235.3.579.2. 593 1970 Unknown [id number] 2.16.840.1.127343.3.579.2. 593 1970 Unknown [id number] 2.16.840.1.104894.3.579.2. 593 1970 Unknown [id number] 2.16.840.1.186376.3.579.2. 593 1970 Unknown [id number] 2.16.840.1.185678.3.579.2. 593 1970 Unknown [id number] 2.16.840.1.420556.3.579.2. 593 1970 Unknown [id number] 2.16.840.1.055622.3.579.2. 593 1970 Unknown [id number] 2.16.840.1.779465.3.579.2. 593 1970 Unknown [id number] 2.16.840.1.190128.3.579.2. 593 1970 Unknown [id number] 2.16.840.1.445551.3.579.2. 593 1970 Unknown [id number] 2.16.840.1.286692.3.579.2. 593 1970 Unknown [id number] 2.16.840.1.970174.3.579.2. 593 1970 Unknown [id number] 2.16.840.1.468243.3.579.2. 593 1970 Unknown [id number] 2.16.840.1.152425.3.579.2. 593 1970 Unknown [id number] 2.840.1.261878.3.579.2. 593 1970 Unknown [id number] 2.16.840.1.483430.3.579.2. 593 1970 Unknown [id number] .16.840.1.129725.3.579.2. 593 1970 Unknown [id number] 2.16.840.1.162105.3.579.2. 593 1970 Unknown [id number] 2.16.840.1.667213.3.579.2. 727 1970 Unknown [id number] 2.16.840.1.177878.3.579.2. 727 1970 Unknown [id number] 2.16.840.1.986609.3.579.2. 1259 1970 Unknown [id number] 2.16.840.1.159817.3.579.2. 1259 1970 Unknown [id number] 2.16.840.1.966669.3.579.2. 1259 1970 Unknown [id number] 2.16.840.1.103376.3.579.2. 1259 1970 Unknown [id number] 2.16.840.1.810979.3.579.2. 9 1970 Unknown [id number] 2.16.840.1.302640.3.579.2. 1258 1970 Unknown [id number] 2.16.840.1.370935.3.579.2. 9 1970 Unknown [id number] 2.16.840.1.052235.3.579.2. 9 1970 Unknown [id number] 2.16.840.1.975548.3.579.2. 1259 1959 Medicaid [id number] 1959 Private Health Insurance [id number] 1959 Unknown [id number] 2.16.840.1.860075.19 Social History Date Type Detail Facility Start: 02-17-2014 End: 07-10-2023 Tobacco smoking status NHIS Current every day smoker [place], [place] Start: 02-17-1994 History of tobacco use Cigarette Smo ker [place] Start: 02-17-2014 End: 08-26-2024 Cigarettes smoked current (pack per day) - Reported [place] Start: 02-17-2014 Alcohol intake Current drinke r of alcohol (finding) [place] Start: 02-17-2014 Alcohol Comment Rare [place], [place] Start: 1970 Sex Assigned At Not on file M [place] Exposure to SARS-CoV -2 (event) Unable to assess [place], [place] Start: 02-06-2022 Tobacco smoking status Smoker (findi ng) [facility] Start: 07-10-2023 End: 08-26-2024 Sex Assigned At Female [facility] Start: 11-15-2022 End: 06-11-2024 Tobacco smoking status Heavy tobacco smoker (finding) [facility] Start: 07-10-2023 Tobacco use and exposure Smoke less tobacco non-user [facility] Start: 07-10-2023 End: 10-27-2024 Alcohol intake Lifetime non-drinker (finding) [facility] Within the last year , have you been afraid of your partner or ex-partner? No [facility] Do you belong to any clubs or organizations such as islam groups, [employer], [employer] or athletic groups, or school groups? Yes [...] drinks on 1 occasion? Never [facility] How often do you nee d to have someone help you when you read instructions, pamphlets, or other written material from your doctor or pharmacy [SILS] Rarely [facility] Medical Equipment Procedure Code Equipment Code Equipment Origin al Text Equipment Identifier Dates [id number] Start: 01-18-2024 USE TO TEST BLOO D SUGAR 4 TIMES DAILY [id number] Start: 07-07-2024 Functional Status Date Assessment Result Facility 06-11-2024 Functional Status N/A [facility] 11-15-2022 Functional Status N/A [facility] 02-06-2022 Functional Status N/A [facility] Clinical Notes 01-19-2022 to 10-27-2024 Mckayla Blas NP - 10/27/2024 2:39 PM Savannah Blas NP - 10/27/2024 2:38 PM Savannah Blas NP - 10/27/2024 2:38 PM Savannah Blas NP - 10/27/2024 2:00 PM EDTPatient Instructions Note Date & Type Note Facility 10-27-2024 History of Present illness Narrative Associated Problem(s): Venous ulcer of right leg ([facility]) Continue with wound care and management of wound, currently they are using dakins Wound is improving Associated Problem(s): GERD (gastroesophageal reflux disease) Recommendations: freq small meals, nothing to eat or drink at least 2 hours prior to bed, limit caffeine, alcohol, as well as spicy foods Meds to limit or avoid if possible: NSAIDS Elevate HOB if possible Current med: PPI Associated Problem(s): PAD (peripheral artery disease) (CMS/[facility]) Asa, statin Quit smoking BP and DM control Images from the original note were not included. Mitzi Macias is a 54 y.o. female presents with chief complaint of No chief complaint on file. HPI: Hypertension This is a chronic problem. The problem is unchanged. The problem is controlled. Associated symptoms include peripheral edema and shortness of breath. Pertinent negatives include no blurred vision, chest pain, headaches or palpitations. There are no associated agents to hypertension. Risk factors for coronary artery disease include diabetes mellitus, dyslipidemia, obesity, sedentary lifestyle and smoking/tobacco exposure. Past treatments include direct vasodilators, TILA inhibitors and diuretics. The current treatment provides significant improvement. There are no compliance problems. Hypertensive end-organ damage includes kidney disease and PVD. There is no history of heart failure. GERD She complains of coughing and wheezing. She reports no abdominal pain, no chest pain, no early satiety, no heartburn, no nausea or no sore throat. This is a chronic problem. The current episode started more than 1 year ago. The problem occurs occasionally. The problem has been unchanged. The symptoms are aggravated by certain foods. Risk factors include caffeine use, obesity and smoking/tobacco exposure. She has tried a PPI for the symptoms. The treatment provided significant relief. SUBJECTIVE: MEDICATIONS: Current Outpatient Medications Medication Instructions [...] daily, Do not crush or chew. ergocalciferol (VITAMIN D2) 1.25 mg, Oral, 2 times weekly fluconazole (Diflucan) 150 MG tablet One time dose, repeat in 3 days . Do not take cholesterol pill while taking this medication. Once finished then resume furosemide (LASIX) 20 mg, Oral, Daily PRN, Take in the afternoon as needed furosemide (LASIX) 40 mg, Oral, Daily hydrALAZINE (APRESOLINE) 25 mg, Oral, 2 times daily HYDROcodone-acetaminophen (Maynard) 5-325 MG tablet 1 tablet, 3 times daily PRN HySept 0.25 % external solution APPLY TO GAUZE AND PLACE ON RIGHT LOWER LEG ULCERS, CHANGE DAILY insulin glargine (LANTUS) 58 Units, 2 times [...] daily, Take with full glass of water. ALLERGIES: No Known Allergies REVIEW OF SYMPTOMS: Review of Systems Constitutional: Negative for appetite change, chills and fever. HENT: Negative for congestion, ear pain and sore throat. Eyes: Negative for blurred vision, pain, discharge, redness and visual disturbance. Respiratory: Positive for cough, shortness of breath and wheezing. Cardiovascular: Positive for leg swelling. Negative for chest pain and palpitations. Gastrointestinal: Negative for abdominal pain, blood in stool, constipation, diarrhea, heartburn, nausea and vomiting. Genitourinary: Negative for difficulty urinating, dysuria and frequency. Musculoskeletal: Positive for arthralgias and back pain. Negative for joint swelling and myalgias. Skin: Positive for wound. Negative for rash. Neurological: Negative for dizziness, tremors, seizures, syncope and headaches. Psychiatric/Behavioral: Negative for behavioral problems, self-injury and suicidal ideas. The patient is not nervous/anxious. Hematological: Does not bruise/bleed easily. Endocrine: Negative for polydipsia, polyphagia and polyuria. Allergic/Immunologic: Negative for environmental allergies and food allergies. 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 Anxiety and depression ([facility]) 07/10/2023 Asthma 07/10/2023 Body mass index (BMI) 50.0-59.9, adult ([facility]) Cellulitis of left lower extremity Cervical cancer ([facility]) 09/17/2023 Chronic pain of both knees 09/17/2023 COPD (chronic obstructive pulmonary disease) ([facility]) 07/10/2023 COPD exacerbation ([facility]) 09/17/2023 Decreased functional mobility 09/17/2023 Diabetic neuropathy ([facility]) 07/10/2023 Dietary counseling and surveillance Edema 07/10/2023 Elevated sed rate Elevated WBC count Essential (primary) hypertension ([facility]) GERD (gastroesophageal reflux disease) 09/17/2023 Hyperlipidemia ([facility]) 09/17/2023 Hypertension ([facility]) 07/10/2023 Insomnia 09/17/2023 [facility] (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 ([facility]) Lower extremity edema 09/17/2023 Mixed hyperlipidemia ([facility]) Morbid (severe) obesity due to excess calories ([facility]) Obstructive sleep apnea 07/10/2023 PAD (peripheral artery disease) ([facility]) 09/17/2023 Pancreatitis 09/17/2023 Pneumonia 09/17/2023 Proteinuria, unspecified Pulmonary hypertension ([facility]) 09/17/2023 Radiculopathy, lumbar region 09/17/2023 Tobacco user 09/17/2023 Type 2 diabetes mellitus with complication, with long-term current use of insulin ([facility]) 07/10/2023 Unilateral primary osteoarthritis, right hip 09/17/2023 [...] her father's sister. OBJECTIVE: Visit Vitals BP 132/74 (BP Location: Left arm, Patient Position: Sitting, BP Cuff Size: Large adult) Pulse 75 Temp 98.7 F (Temporal) Resp 18 Ht 5' 7 Wt 360 lb 12.8 oz SpO2 90% BMI 56.51 kg/m Smoking Status Every Day BSA 2.78 m Physical Exam Vitals and nursing note reviewed. Constitutional: General: She is not in acute distress. Appearance: Normal appearance. HENT: Head: Normocephalic and atraumatic. Right Ear: External ear normal. Left Ear: External ear normal. Nose: Nose normal. Mouth/Throat: Mouth: Mucous membranes are moist. Eyes: Extraocular Movements: Extraocular movements intact. Conjunctiva/sclera: Conjunctivae normal. Neck: Vascular: No carotid bruit. Cardiovascular: Rate and Rhythm: Normal rate and regular rhythm. Pulses: Normal pulses. Heart sounds: Normal heart sounds. No murmur heard. Pulmonary: Effort: Pulmonary effort is normal. Breath sounds: Wheezing (faint exp) present. Abdominal: General: Bowel sounds are normal. There is no distension. Palpations: Abdomen is soft. There is no mass. Tenderness: There is no abdominal tenderness. Musculoskeletal: General: Normal range of motion. Cervical back: Normal range of motion and neck supple. Right lower leg: Edema present. Left lower leg: Edema present. Comments: Dressing to RLE Lymphadenopathy: Cervical: No cervical adenopathy. Skin: General: Skin is warm and dry. Capillary Refill: Capillary refill takes 2 to 3 seconds. Findings: No rash. Neurological: General: No focal deficit present. Mental Status: She is alert and oriented to person, place, and time. Psychiatric: Mood and Affect: Mood normal. Behavior: Behavior normal. Thought Content: Thought content normal. Judgment: Judgment normal. ASSESSMENT AND PLAN: No follow-ups on file. Problem List Items Addressed This Visit Diabetic neuropathy (CMS/HCC) - Primary Continue with lyangelito, pain mgmt is prescribing OARRS reviewed Fu in 3 months Goal: tighter glucose control, this has been improving, latest A1c is 7.4%!!! Hypertension (CMS/HCC) Please check blood pressure daily and record DASH diet Limit caffeine Take medication as directed Contact office if chest pain, pressure, dizziness, shortness of breath, swelling legs Recommend slow position changes Current meds: hydralazine, lisinopril, Relevant Medications hydrALAZINE (Apresoline) 25 MG tablet lisinopril 20 MG tablet Type 2 diabetes mellitus with complication, with long-term current use of insulin ([facility]) Check blood sugars daily, notify if <70 [...] with Libby On asa, tila, statin, farxiga, marniunjaro Most recent A1c is 7.2% on 10/08/2024 Relevant Medications aspirin 81 MG chewable tablet Anxiety and depression (CMS/HCC) Current meds: elavil, duloxtine, Relevant Medications DULoxetine (Cymbalta) [address] capsule Bilateral lower extremity edema Limit sodium , elevate legs, furosemide Relevant Medications furosemide (Lasix) 20 MG tablet potassium chloride ER (Micro-K) 10 MEQ ER capsule furosemide (Lasix) 40 MG tablet Insomnia Relevant Medications amitriptyline (Elavil) 25 MG tablet PAD (peripheral artery disease) (CMS/[facility]) Asa, statin Quit smoking BP and DM control GERD (gastroesophageal reflux disease) Recommendations: freq small meals, nothing to eat or drink at least 2 hours prior to bed, limit caffeine, alcohol, as well as spicy foods Meds to limit or avoid if possible: NSAIDS Elevate HOB if possible Current med: PPI Encounter for screening mammogram for malignant neoplasm of breast Relevant Orders Bilateral screening mammogram Non-seasonal allergic rhinitis Relevant Medications cetirizine (ZyrTEC) 10 MG tablet Venous ulcer of right leg (CMS/HCC) Continue with wound care and management of wound, currently they are using dakins Wound is improving Morbid (severe) obesity due to excess calories (CMS/[facility]) Discussed with patient their BMI (actual, verses [...] loss. Is currently taking mounjaro for DM Chronic diastolic heart failure ([facility]) Current meds; asa, farxiga, lasix, hydralazine, lisinopril, Follows with cardilogy Reviewed 08/02 notes Cigarette nicotine dependence without complication Is currently using chantix, and is doing well, less desire, smoking less Vitamin D deficiency, unspecified Relevant Medications ergocalciferol (Vitamin D2) 1.25 MG (81072 UT) capsule Gastro-esophageal reflux disease without esophagitis Relevant Medications omeprazole (PriLOSEC) [address] capsule Other Visit Diagnoses Type 2 diabetes mellitus with unspecified complications Relevant Medications dapagliflozin (Farxiga) 10 MG Associated Problem(s): Cigarette nicotine dependence without complication Is currently using chantix, and is doing well, less desire, smoking less Associated Problem(s): Anxiety and depression ([facility]) Current meds: elavil, duloxtine, Associated Problem(s): Type 2 diabetes mellitus with complication, with long-term current use of insulin ([facility]) Check blood sugars daily, notify if <70 [...] statin, farxiga, mounjaro Most recent A1c is 7.2% on 10/08/2024 Associated Problem(s): Morbid (severe) obesity due to excess calories (CMS/HCC) Discussed with patient their BMI (actual, verses [...] sodium , elevate legs, furosemide Associated Problem(s): Chronic diastolic heart failure (CMS/HCC) Current meds; asa, farxiga, lasix, hydralazine, lisinopril, Follows with cardilogy Reviewed 08/02 notes Associated Problem(s): Hypertension (CMS/HCC) Please check blood pressure daily and record DASH diet Limit caffeine Take medication as directed Contact office if chest pain, pressure, dizziness, shortness of breath, swelling legs Recommend slow position changes Current meds: hydralazine, lisinopril, Associated Problem(s): COPD (chronic obstructive pulmonary disease) (CMS/HCC) Follows with verena Needs smoking cessation Current meds: duoneb, albuterol, daliresp, Associated Problem(s): Diabetic neuropathy (CMS/HCC) Continue with lycintia eaton mgmt is prescribing OARRS reviewed Fu in 3 months Goal: tighter glucose control, this has been improving, latest A1c is 7.4%!!! documented in this encounter [facility] 10-27-2024 Instructions Mckayla Blas NP - 10/27/2024 2:00 PM EDT No dose changes in meds You will be due for mammogram I will send order to [facility], they should call you to schedule If no call, please call [phone] ext [phone] documented in this encounter [facility] 10-08-2024 History of Present illness Narrative Images from the original note were not included. Mitzi Macias is a 54 y.o. female No ref. provider found presents with chief complaint of Diabetes and Follow-up HPI: IM 10/2024 follow up visit on 10/08/2024 , A1c in the office 7.4 , bg 97, on lantus 58 units, lispro 8-10-12 units plus ISS, mounjaro 15 mg weekly, farxia 5 mg daily. IM 05/2024 follow up visit on 05/27/2024 [...] 07/2020 New patient sent from Mckayla Blas [facility], for uncontrolled diabetes. A1c 10.3. She has [...] or chew. ergocalciferol (Vitamin D2) 1.25 MG (47993 UT) capsule TAKE 1 CAPSULE BY MOUTH ONE TIME PER WEEK fluconazole (Diflucan) 150 MG tablet One time dose, repeat in 3 days . Do not take cholesterol pill while taking this medication. Once finished then resume furosemide (LASIX) 20 mg, Oral, Daily PRN, Take in the afternoon as needed furosemide (LASIX) 40 mg, Oral, Daily hydrALAZINE (APRESOLINE) 25 mg, Oral, 2 times daily HYDROcodone-acetaminophen (Maynard) 5-325 MG tablet 1 tablet, 3 times [...] daily as directed ALLERGIES: No Known Allergies Past Medical History: Diagnosis Date Abnormal chest CT Albuminuria 09/17/2023 Angiomyolipoma Anxiety and depression ([facility]) 07/10/2023 Asthma ([facility]) 07/10/2023 Body mass index (BMI) 50.0-59.9, adult ([facility]) Cellulitis of left lower extremity Cervical cancer ([facility]) 09/17/2023 Chronic pain of both knees 09/17/2023 COPD (chronic obstructive pulmonary disease) ([facility]) 07/10/2023 COPD exacerbation ([facility]) 09/17/2023 Decreased functional mobility 09/17/2023 Diabetic neuropathy ([facility]) 07/10/2023 Dietary counseling and surveillance Edema 07/10/2023 Elevated sed rate Elevated WBC count Essential (primary) hypertension ([facility]) GERD (gastroesophageal reflux disease) 09/17/2023 Hyperlipidemia ([facility]) 09/17/2023 Hypertension ([facility]) 07/10/2023 Insomnia 09/17/2023 CHCF (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 ([facility]) Lower extremity edema 09/17/2023 Mixed hyperlipidemia ([facility]) Morbid (severe) obesity due to excess calories ([facility]) Obstructive sleep apnea 07/10/2023 PAD (peripheral artery disease) ([facility]) 09/17/2023 Pancreatitis 09/17/2023 Pneumonia 09/17/2023 Proteinuria, unspecified Pulmonary hypertension ([facility]) 09/17/2023 Radiculopathy, lumbar region 09/17/2023 Tobacco user 09/17/2023 Type 2 diabetes mellitus with complication, with long-term current use of insulin ([facility]) 07/10/2023 Unilateral primary osteoarthritis, right hip 09/17/2023 [...] no Lab Results Component Value Date HGBA1C 7.4 10/08/2024 HGBA1C 9.2 05/27/2024 Lab Results Component Value Date GLU 97 10/08/2024 GLU 65 (L) 10/08/2024 GLU 223 (H) 08/27/2024 11/15/2023 2:49 PM 01/17/2024 10:02 AM 04/14/2024 10:27 AM 04/29/2024 7:19 AM 05/27/2024 10:20 AM 08/27/2024 5:44 PM 10/08/2024 11:21 AM Vitals BMI 58.91 kg/m2 59.97 kg/m2 61.01 kg/m2 55.44 kg/m2 56.7 kg/m2 57.31 kg/m2 55.91 kg/m2 BSA (m2) 2.72 m2 2.73 m2 2.76 m2 2.76 m2 2.78 m2 2.8 m2 2.77 m2 Systolic 130 108 116 122 128 134 130 Diastolic 68 72 80 68 66 76 70 Heart Rate 78 71 77 77 72 83 70 SpO2 88 % 92 % 92 % 91 % 91 % 91 % Temp 98.1 F 98.3 F 98.5 F 98 F Resp 19 18 19 16 16 18 16 Height (in) 5' 5 5' 5 5' 5 5' 7 5' 7 5' 7 Weight (lb) 354 360.4 366.6 354 362 365.9 357 Visit Report Report Report Report Report Report Report ASSESSMENT AND PLAN: Assessment/Plan Diagnoses and all orders for this visit: Type 2 diabetes mellitus with hyperglycemia, with long-term current use of insulin ([facility]) - POCT glucose manually resulted - POCT glycosylated hemoglobin (Hb A1C) docked device We will continue with Lantus 58, lispro 02-16-12 according to meal size, Mounjaro 15 mg once weekly, Farxiga 5 mg once a day. Encounter for dietary consultation Vitamin D deficiency Primary hypertension (CMS/HCC) Insulin long-term use (CMS/HCC) Hyperlipemia, mixed (CMS/HCC) Microalbuminuria Class 3 severe obesity due to excess calories with serious comorbidity and body mass index (BMI) of 50.0 to 59.9 in adult Diet and exercise reviewed with the patient Follow up in about 4 months (around 02/07/2025). documented in this encounter [facility] 08-27-2024 History of Present illness Narrative Associated [...] lifestyle and smoking/tobacco exposure. Past treatments include TIAL inhibitors. The current treatment provides significant improvement. [...] or chew. ergocalciferol (Vitamin D2) 1.25 MG (88739 UT) capsule TAKE 1 CAPSULE BY MOUTH [...] 25 mg, Oral, 2 times daily HYDROcodone-acetaminophen (Maynard) 5-325 MG tablet 1 tablet, 3 times [...] CT Albuminuria 09/17/2023 Angiomyolipoma Anxiety and depression ([facility]) 07/10/2023 Asthma ([facility]) 07/10/2023 Body mass index (BMI) 50.0-59.9, adult ([facility]) Cellulitis of left lower extremity Cervical cancer ([facility]) 09/17/2023 Chronic pain of both knees 09/17/2023 COPD (chronic obstructive pulmonary disease) ([facility]) 07/10/2023 COPD exacerbation ([facility]) 09/17/2023 Decreased functional mobility 09/17/2023 Diabetic neuropathy ([facility]) 07/10/2023 Dietary counseling and surveillance Edema 07/10/2023 Elevated sed rate Elevated WBC count Essential (primary) hypertension ([facility]) GERD (gastroesophageal reflux disease) 09/17/2023 Hyperlipidemia ([facility]) 09/17/2023 Hypertension ([facility]) 07/10/2023 Insomnia 09/17/2023 [facility] (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 ([facility]) Lower extremity edema 09/17/2023 Mixed hyperlipidemia ([facility]) Morbid (severe) obesity due to excess calories ([facility]) Obstructive sleep apnea 07/10/2023 PAD (peripheral artery disease) ([facility]) 09/17/2023 Pancreatitis 09/17/2023 Pneumonia 09/17/2023 Proteinuria, unspecified Pulmonary hypertension ([facility]) 09/17/2023 Radiculopathy, lumbar region 09/17/2023 Tobacco user 09/17/2023 Type 2 diabetes mellitus with complication, with long-term current use of insulin ([facility]) 07/10/2023 Unilateral primary osteoarthritis, right hip 09/17/2023 [...] Items Addressed This Visit Diabetic neuropathy ([facility]) Continue with cintia hudson mgmt is prescribing OARRS reviewed Fu in 3 months Goal: tighter glucose control Hypertension ([facility]) Please check blood pressure daily and record [...] with long-term current use of insulin ([facility]) Check blood sugars daily, notify if <70 [...] and simple sugars. Continues to follow with Lbiby On asa, tila, statin, farxiga, mounjaro Most recent A1c is 9.2% on 05/27/24 Relevant Orders Urinalysis with reflex microscopic (clean catch) Microalbumin / creatinine, urine ratio Anxiety and depression ([facility]) - Primary Current meds: elavil, duloxtine, PHQ [...] of the risks of continued smoking: stroke, NE, all forms of cancer, lung disease, and [...] Relevant Medications Varenicline Tartrate, Starter, (Chantix Starting Month ) [...] Relevant Medications Varenicline Tartrate, Starter, (Chantix Starting Month ) 0.5 MG X 11 & 1 MG X 42 tablet therapy pack varenicline (Chantix) 1 MG tablet Morbid (severe) obesity due to excess calories (CMS/HCC) Discussed with patient their BMI (actual, verses [...] of the risks of continued smoking: stroke, NE, all forms of cancer, lung disease, and [...] of insulin (CMS/HCC) Check blood sugars daily, notify if <70 [...] Morbid (severe) obesity due to excess calories ([facility]) Discussed with patient their BMI (actual, verses [...] Problem(s): Malignant neoplasm of cervix uteri, unspecified ([facility]) Had in the past, had hysterectomy Associated [...] Associated Problem(s): COPD (chronic obstructive pulmonary disease) ([facility]) Follows with verena Needs smoking cessation Current meds: duoneb, albuterol, daliresp, Associated Problem(s): Asthma ([facility]) Current meds: albuterol, duoneb, 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 08-08-2024 Note [place] [facility] Subjective Mitzi Macias is [...] , Rfl: ergocalciferol (Vitamin D-2) 1.25 MG (03795 Units) capsule, Take 1.25 mg by mouth., [...] and at bedtime., Disp: , Rfl: HYDROcodone-acetaminophen (Maynard) 5-325 mg tablet, TAKE 1 TABLET BY [...] Disp: (more content not included)... [facility] 07-14-2024 History of Present illness Narrative [...] or chew. ergocalciferol (Vitamin D2) 1.25 MG (64693 UT) capsule TAKE 1 CAPSULE BY MOUTH ONE TIME PER WEEK furosemide (LASIX) 40 mg, Oral, Daily furosemide (LASIX) 20 mg, Oral, Daily PRN, Take in the afternoon as needed hydrALAZINE (APRESOLINE) 25 mg, Oral, 2 times daily HYDROcodone-acetaminophen (Maynard) 5-325 MG tablet 1 tablet, 3 times [...] CT Albuminuria 09/17/2023 Angiomyolipoma Anxiety and depression ([facility]) 07/10/2023 Asthma ([facility]) 07/10/2023 Body mass index (BMI) 50.0-59.9, adult ([facility]) Cellulitis of left lower extremity Cervical cancer ([facility]) 09/17/2023 Chronic pain of both knees 09/17/2023 COPD (chronic obstructive pulmonary disease) ([facility]) 07/10/2023 COPD exacerbation ([facility]) 09/17/2023 Decreased functional mobility 09/17/2023 Diabetic neuropathy ([facility]) 07/10/2023 Dietary counseling and surveillance Edema 07/10/2023 Elevated sed rate Elevated WBC count Essential (primary) hypertension ([facility]) GERD (gastroesophageal reflux disease) 09/17/2023 Hyperlipidemia ([facility]) 09/17/2023 Hypertension ([facility]) 07/10/2023 Insomnia 09/17/2023 CHCF (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 ([facility]) Lower extremity edema 09/17/2023 Mixed hyperlipidemia ([facility]) Morbid (severe) obesity due to excess calories ([facility]) Obstructive sleep apnea 07/10/2023 PAD (peripheral artery disease) ([facility]) 09/17/2023 Pancreatitis 09/17/2023 Pneumonia 09/17/2023 Proteinuria, unspecified Pulmonary hypertension ([facility]) 09/17/2023 Radiculopathy, lumbar region 09/17/2023 Tobacco user 09/17/2023 Type 2 diabetes mellitus with complication, with long-term current use of insulin ([facility]) 07/10/2023 Unilateral primary osteoarthritis, right hip 09/17/2023 [...] Items Addressed This Visit Diabetic neuropathy ([facility]) Continue with tristan EAST reviewed Fu in 3 months COPD (chronic obstructive pulmonary disease) ([facility]) Stable at this time, no changes in meds Encouraged smoking cessation Cont with dr Yañez Hypertension ([facility]) - Primary Please check blood pressure daily and record DASH diet Limit caffeine Take medication as directed Contact office if chest pain, pressure, dizziness, shortness of breath, swelling legs Recommend slow position changes Current meds: hydralazine, lisinopril, Type 2 diabetes mellitus with complication, with long-term current use of insulin ([facility]) Check blood sugars daily, notify if <70 [...] take over prescribing PAD (peripheral artery disease) (CMS/HCC) Asa, statin [...] of the risks of continued smoking: stroke, NE, all forms of cancer, lung disease, and [...] cm in diameter (CMS/HCC) Continue with Urology Kidney stone Continue with [...] sugar control Venous ulcer of right leg (CMS/HCC) Encounter for smoking cessation counseling Relevant Medications nicotine (Nicoderm, Step 1) 21 MG/24HR patch Other Visit Diagnoses Type 2 diabetes mellitus with unspecified complications (CMS/HCC) Quitting smokinppd, chantix not helped, ] Face time with pt, spent 15 minutes with pt Associated Problem(s): Tobacco user The patient has been advised of the risks of continued smoking: stroke, NE, all forms of cancer, lung disease, and [...] with long-term current use of insulin ([facility]) Check blood sugars daily, notify if <70 [...] PPI Associated Problem(s): PAD (peripheral artery disease) ([facility]) Asa, statin Quit smoking BP and DM control Associated Problem(s): Hypertension ([facility]) Please check blood pressure daily and record DASH diet Limit caffeine Take medication as directed Contact office if chest pain, pressure, dizziness, shortness of breath, swelling legs Recommend slow position changes Current meds: hydralazine, lisinopril, Associated Problem(s): COPD (chronic obstructive pulmonary disease) ([facility]) Stable at this time, no changes in meds Encouraged smoking cessation Cont with dr Yañez Associated Problem(s): Diabetic neuropathy ([facility]) Continue with tristan EAST reviewed Fu in 3 months documented in this encounter [facility] 06-11-2024 Hospital Discharge instructions Patient Education 06/11/2024 [...] require a prescription. You can also purchase pfxb-bwx-[id number] medicines. Medicines may have nicotine in them [...] and encouragement. Call telephone quitlines, such as 6-474-ZCQQ-NOW, reach out to support groups, or work [...] provider. Document Revised: 06/16/2022 Document Reviewed: 06/16/2022 [employer] Patient Education 2023 [employer]. 06/11/2024 10:39:22 Dietary Guidelines to Help Prevent [...] include: ?8 oz (237 mL) of milk, dcryjlu-qljtvtlxvxhp-udahw milk, and calcium-fortifiedfruit juice. Calcium-fortified means that [...] ?Spinach (cooked), rhubarb, beets, sweet potatoes, and Danish chard. ?Peanuts. ?Potato chips, greek fries, and baked potatoes with skin on. ?Nuts and nut products. ?Chocolate. If you regularly take a diuretic medicine, make sure to eat at least 1 or 2 servings of fruits or vegetables that are high in potassium each day. These include: ?Avocado. ?Banana. ?[place], prune, carrot, or tomato juice. ?Baked potato. [...] magnesium, fish oil, or vitamin B6. Take remn-iem-bpspxup and prescription medicines only as told by [...] Casseroles. Pizza. Lasagna. Frozen meals. Potato chips. Pakistani fries. The items listed above may not [...] provider. Document Revised: 10/05/2022 Document Reviewed: 10/05/2022 [employer] Patient Education 2023 [employer]. Follow Up Care 05/06/2024 08:24:56 With:REGLA PHIPPS, Elbert Joya, URL Address: [facility] [address], [place] [address]- When: Unknown [facility] 05-27-2024 History of Present illness [...] or chew. ergocalciferol (Vitamin D2) 1.25 MG (08971 UT) capsule TAKE 1 CAPSULE BY MOUTH ONE TIME PER WEEK furosemide (LASIX) 20 mg, Oral, Daily PRN, Take in the afternoon as needed furosemide (LASIX) 40 mg, Oral, Daily Glucose Blood (ACCU-CHEK JAQUI PLUS ) 4 times daily hydrALAZINE (APRESOLINE) 25 mg, Oral, 2 times daily HYDROcodone-acetaminophen (Maynard) 5-325 MG tablet 1 tablet, 3 times [...] CT Albuminuria 09/17/2023 Angiomyolipoma Anxiety and depression ([facility]) 07/10/2023 Asthma ([facility]) 07/10/2023 Body mass index (BMI) 50.0-59.9, adult ([facility]) Cellulitis of left lower extremity Cervical cancer ([facility]) 09/17/2023 Chronic pain of both knees 09/17/2023 COPD (chronic obstructive pulmonary disease) ([facility]) 07/10/2023 COPD exacerbation ([facility]) 09/17/2023 Decreased functional mobility 09/17/2023 Diabetic neuropathy ([facility]) 07/10/2023 Dietary counseling and surveillance Edema 07/10/2023 Elevated sed rate Elevated WBC count GERD (gastroesophageal reflux disease) 09/17/2023 Hyperlipidemia ([facility]) 09/17/2023 Hypertension ([facility]) 07/10/2023 Insomnia 09/17/2023 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 ([facility]) Lower extremity edema 09/17/2023 Morbid (severe) obesity due to excess calories ([facility]) Obstructive sleep apnea 07/10/2023 PAD (peripheral artery disease) ([facility]) 09/17/2023 Pancreatitis 09/17/2023 Pneumonia 09/17/2023 Proteinuria, unspecified Pulmonary hypertension ([facility]) 09/17/2023 Radiculopathy, lumbar region 09/17/2023 Tobacco user 09/17/2023 Type 2 diabetes mellitus with complication, with long-term current use of insulin ([facility]) 07/10/2023 Unilateral primary osteoarthritis, right hip 09/17/2023 [...] with long-term current use of insulin ([facility]) - POCT glucose manually resulted - POCT glycosylated hemoglobin (Hb A1C) docked device We will continue with Lantus 58, lispro 02/16/12 according to meal size, Mounjaro 15 mg once weekly, Farxiga 5 mg once a day Encounter for dietary consultation Vitamin D deficiency Primary hypertension ([facility]) To follow with her PCP Insulin long-term use ([facility]) Hyperlipemia, mixed ([facility]) Continue with Zocor 10 mg once daily Microalbuminuria Class 3 severe obesity due to excess calories with serious comorbidity and body mass index (BMI) of 50.0 to 59.9 in adult ([facility]) Diet and exercise reviewed with the patient Follow up in about 3 months (around 08/27/2024). documented in this encounter [facility] 04-14-2024 History of Present illness Narrative Associated Problem(s): Hyperpigmentation of skin Will try cerevue ointment to see if helps Associated Problem(s): Tobacco user Urged to quit Associated Problem(s): Type 2 diabetes mellitus with complication, with long-term current use of insulin (CMS/[facility]) Check blood sugars daily, follow w Endo. [...] Associated Problem(s): COPD (chronic obstructive pulmonary disease) (CMS/[facility]) Stable at this time, no changes in meds Encouraged smoking cessation Cont with dr Yañez Associated Problem(s): Diabetic neuropathy ([facility]) Continue with tristan EAST reviewed Fu in [...] being taken. She does not see a glass tube bender.Eye exam is not current. Hypertension This is [...] or chew. ergocalciferol (Vitamin D2) 1.25 MG (45211 UT) capsule TAKE 1 CAPSULE BY MOUTH ONE TIME PER WEEK furosemide (LASIX) 20 mg, Oral, Daily PRN, Take in the afternoon as needed furosemide (LASIX) 40 mg, Oral, Daily Glucose Blood (ACCU-CHEK JAQUI PLUS ) 4 times daily HumaLOG KWIKPEN 100 UNIT/ML injection Subcutaneous hydrALAZINE (APRESOLINE) 25 mg, Oral, 2 times daily HYDROcodone-acetaminophen (Maynard) 5-325 MG tablet 1 tablet, 3 times [...] CT Albuminuria 09/17/2023 Angiomyolipoma Anxiety and depression ([facility]) 07/10/2023 Asthma ([facility]) 07/10/2023 Cellulitis of left lower extremity Cervical cancer ([facility]) 09/17/2023 Chronic pain of both knees 09/17/2023 COPD (chronic obstructive pulmonary disease) ([facility]) 07/10/2023 COPD exacerbation ([facility]) 09/17/2023 Decreased functional mobility 09/17/2023 Diabetic neuropathy ([facility]) 07/10/2023 Edema 07/10/2023 Elevated sed rate Elevated WBC count GERD (gastroesophageal reflux disease) 09/17/2023 Hyperlipidemia ([facility]) 09/17/2023 Hypertension ([facility]) 07/10/2023 Insomnia 09/17/2023 Lower extremity edema 09/17/2023 Obstructive sleep apnea 07/10/2023 PAD (peripheral artery disease) ([facility]) 09/17/2023 Pancreatitis 09/17/2023 Pneumonia 09/17/2023 Pulmonary hypertension ([facility]) 09/17/2023 Radiculopathy, lumbar region 09/17/2023 Tobacco user 09/17/2023 Type 2 diabetes mellitus with complication, with long-term current use of insulin ([facility]) 07/10/2023 Unilateral primary osteoarthritis, right hip 09/17/2023 [...] Items Addressed This Visit Diabetic neuropathy ([facility]) Continue with lyrica OARRS reviewed Fu in 3 months Relevant Medications pregabalin (Lyrica) 300 MG capsule COPD (chronic obstructive pulmonary disease) ([facility]) - Primary Stable at this time, no changes in meds Encouraged smoking cessation Cont with dr Yañez Hypertension ([facility]) Stable on current meds Refill meds Relevant Medications hydrALAZINE (Apresoline) 25 MG tablet lisinopril 20 MG tablet Type 2 diabetes mellitus with complication, with long-term current use of insulin ([facility]) Check blood sugars daily, follow w Endo. [...] 500 MCG tablet documented in this encounter [facility] 11-14-2023 Note [place] [facility] Subjective Mitzi Macias is a 53 y.o. year old female being seen as new patient to establish care. Ref from Mckayla Blas CNP for pulmonary hypertension. She had echo in Aug 2023 while inpatient at [facility] for pneumonia and COPD exacerbation. Denies [...] of 50.0 to 59.9 in adult ([facility]) Non-seasonal allergic rhinitis Obstructive sleep apnea Other chronic pain PAD (peripheral artery disease) ([facility]) Pneumonia Encounter for screening mammogram for malignant neoplasm of breast Pulmonary hypertension ([facility]) Radiculopathy, lumbar region Current smoker Type 2 diabetes mellitus with complication, with long-term current use of insulin ([facility]) Unilateral primary osteoarthritis, right hip Vaginal yeast [...] admitted in early 2023 to the [facility] with hypoxemia and treated as COPD [...] Gene (more content not included)... [facility] 11-15-2022 Hospital Discharge instructions Patient Education [...] include: ?8 oz (237 mL) of milk, soimjlq-gxgewotedskt-eoaud milk, and calcium-fortifiedfruit juice. Calcium-fortified means that [...] ?Spinach (cooked), rhubarb, beets, sweet potatoes, and Danish chard. ?Peanuts. ?Potato chips, greek fries, and baked potatoes with skin on. ?Nuts and nut products. ?Chocolate. If you regularly take a diuretic medicine, make sure to eat at least 1 or 2 servings of fruits or vegetables that are high in potassium each day. These include: ?Avocado. ?Banana. ?[place], prune, carrot, or tomato juice. ?Baked potato. [...] magnesium, fish oil, or vitamin B6. Take [id number] and prescription medicines only as told by [...] Casseroles. Pizza. Lasagna. Frozen meals. Potato chips. Pakistani fries. The items listed above may not [...] provider. Document Revised: 03/06/2022 Document Reviewed: 03/06/2022 [employer] Patient Education 2022 [employer]. Follow Up Care 02/06/2022 11:44:09 With:SARAH VEGA PA-C, URL Address: [address] [place] [address] When: Unknown [facility] 08-24-2022 Note CONSULTATION CONSULTATION DATE: 08/24/2022 [...] We maintain her on pain medication with Maynard 5/325 t.i.d., diclofenac 75 mg b.i.d. Her [...] her at this point. A refill for Maynard 5/325 t.i.d. and diclofenac 75 mg b.i.d. will be sent to the pharmacy. Vitamin compliance and nutrition were discussed and enforced. I did highly encourage her to use exercise bands to increase the strength in her lower extremities. We will see her in three months' time, unless otherwise indicated, and patient agrees. [facility] 05-11-2022 Note CONSULTATION CONSULTATION DATE: 05/11/2022 [...] 150. Medications include Lyrica 300 mg b.i.d., Maynard 5/325 t.i.d., diclofenac 75 mg b.i.d. and [...] her medications today. We will maintain Lyrica, Maynard and diclofenac at the set dose and frequency. We will follow-up in the clinic in three months' time. The patient is in agreement to this. Vitamin importance and nutrition were discussed. [facility] 04-20-2022 Note CONSULTATION CONSULTATION DATE: 04/20/2022 [...] medications include Tylenol, Lyrica 300 mg b.i.d., Maynard 5/325 t.i.d., amitriptyline, diclofenac and duloxetine. Patient's [...] followed up in the clinic. [facility] 03-08-2022 Evaluation note Encounter Date Diagnosis [...] to the D[facility]. Thrombocytopenia is unclear etiology. [facility] Other 08-15-2022 Evaluation note* Encounter Date Diagnosis [...] follow with Dr. Souza and Dr. Arauz. [facility] 08-01-2022 Hospital Discharge instructions Patient Education [...] fried and sweet foods. General instructions Take coiq-sgq-bigbtge and prescription medicines only as told by [...] 04/21/2010 Document Revised: 10/16/2019 Document Reviewed: 07/11/2018 [employer] Patient Education 2020 [employer]. Follow Up Care 01/05/2022 12:02:03 With:REGLA PHIPPS, Elbert Joya, URL Address: [facility] [address], [place] [address] [phone] When:Within 6 Month(s) Comments:w/ repeat CT A[facility]P [facility] 07-14-2022 NoteCONSULTATION PROCEDURE DATE: 01/19/2022 PRE AND [...] the patient tolerated it well. [facility] Signed and Approved by: GIL VALENZUELA . 01/27/2022 14:15:00[facility]07-14-2022 NoteCONSULTATION CONSULTATION DATE: 01/19/2022 This [...] today. Medications include Lyrica 300 mg b.i.d., Maynard 5/325 t.i.d., diclofenac 75 mg b.i.d. and [...] months' time unless otherwise indicated. [facility] Signed and Approved by: GIL VALENZUELA . 01/27/2022 [facility]ments Appointment Date:08/14/2022 09:15:00 AM Scheduled Provider:Elbert ARAUZ MD Location:[facility] Appointment Type:URO Office Visit [facility] evaluation + Plan note Future Appointments Appointment Date:04/22/2024 10:00:00 AM Scheduled Provider:SARAH VEGA PA-C Location:[facility] Appointment Type:URO Office Visit [facility]* Diagnosis Type 2 diabetes mellitus with unspecified complications ([facility]) Edema, unspecified Edema documented in this encounter [facility] HealthcareEvaluation note* Diagnosis Vaginal yeast infection- Primary Candidiasis of vulva and vagina documented in this encounter [facility] HealthcareEvaluation note* Diagnosis Primary hypertension ([facility]/HCC)- Primary Unspecified essential hypertension Insomnia Insomnia, unspecified Type 2 diabetes mellitus with complication, with long-term current use of insulin ([facility]) Non-seasonal allergic rhinitis, unspecified trigger Type 2 diabetes mellitus with unspecified complications ([facility]/HCC) Anxiety and depression ([facility]) Gastro-esophageal reflux disease without esophagitis Edema, unspecified Edema Diabetic polyneuropathy associated with type 2 diabetes mellitus ([facility]) Chronic obstructive pulmonary disease, unspecified ([facility]) Pulmonary emphysema, unspecified emphysema type ([facility]) Bilateral lower extremity edema Tobacco user Tobacco use disorder Hyperpigmentation of skin Other dyschromia documented in this encounter [facility] HealthcareEvaluation note* Diagnosis Obstructive sleep apnea- Primary Obstructive sleep apnea (adult) (pediatric) Pulmonary emphysema, unspecified emphysema type ([facility]/HCC) Primary hypertension ([facility]) Unspecified essential hypertension Type 2 diabetes mellitus with complication, with long-term current use of insulin ([facility]) Anxiety and depression ([facility]) Bilateral lower extremity edema Pulmonary emphysema, unspecified emphysema type ([facility]/HCC)- Primary Primary hypertension ([facility]) Unspecified essential hypertension Class 3 severe obesity with serious comorbidity and body mass index (BMI) of 50.0 to 59.9 in adult, unspecified obesity type ([facility]) Obstructive sleep apnea Obstructive sleep apnea (adult) (pediatric) Pulmonary hypertension ([facility]) Other chronic pulmonary heart diseases Tobacco user Tobacco use disorder Cardiomegaly Primary hypertension ([facility])- Primary Unspecified essential hypertension Gastroesophageal reflux disease, unspecified whether esophagitis present Type 2 diabetes mellitus with complication, with long-term current use of insulin ([facility]) Mixed hyperlipidemia ([facility]) Mixed hyperlipidemia Tobacco user Tobacco use disorder Encounter for screening mammogram for malignant neoplasm of breast Chronic obstructive pulmonary disease, unspecified ([facility]) Other specified chronic obstructive pulmonary disease ([facility]) Anxiety and depression ([facility]) Edema, unspecified Edema Hyperlipidemia, unspecified ([facility]) Diabetic polyneuropathy associated with type 2 diabetes mellitus ([facility]) Gout, unspecified cause, unspecified chronicity, unspecified site Non-seasonal allergic rhinitis, unspecified trigger Bilateral lower extremity edema COPD exacerbation ([facility]) Obstructive chronic bronchitis with exacerbation Pulmonary emphysema, unspecified emphysema type ([facility]) Venous insufficiency Unspecified venous (peripheral) insufficiency Candidiasis of breast COPD exacerbation ([facility])- Primary Obstructive chronic bronchitis with exacerbation Pulmonary hypertension ([facility]) Other chronic pulmonary heart diseases Class 3 severe obesity with serious comorbidity and body mass index (BMI) of 50.0 to 59.9 in adult, unspecified obesity type ([facility]) Encounter for subsequent annual wellness visit (AWV) in Medicare patient- Primary Type 2 diabetes mellitus with unspecified complications ([facility]) Pulmonary emphysema, unspecified emphysema type ([facility]) Moderate persistent asthma without complication ([facility]) Primary hypertension ([facility]) Unspecified essential hypertension Type 2 diabetes mellitus with complication, with long-term current use of insulin ([facility]) Class 3 severe obesity with serious comorbidity and body mass index (BMI) of 50.0 to 59.9 in adult, unspecified obesity type ([facility]) Tobacco user Tobacco use disorder Other headache syndrome Malignant neoplasm of cervix uteri, unspecified ([facility]) Other specified disorders of adrenal gland ([facility]) Major depressive disorder, single episode, mild (HCC) ([facility]) Major depressive disorder, single episode, mild 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 exposed ([facility]) Chronic respiratory failure, unspecified whether with hypoxia or hypercapnia ([facility]) Disorder of adrenal gland, unspecified ([facility]) Non-pressure chronic ulcer of other part of right lower leg limited to breakdown of skin ([facility]) Non-recurrent acute suppurative otitis media of left ear without spontaneous rupture of tympanic membrane Primary hypertension ([facility])- Primary Unspecified essential hypertension Insomnia Insomnia, unspecified Type 2 diabetes mellitus with complication, with long-term current use of insulin ([facility]) Non-seasonal allergic rhinitis, unspecified trigger Type 2 diabetes mellitus with unspecified complications ([facility]) Anxiety and depression ([facility]) Gastro-esophageal reflux disease without esophagitis Edema, unspecified Edema Diabetic polyneuropathy associated with type 2 diabetes mellitus ([facility]) Chronic obstructive pulmonary disease, unspecified ([facility]) Pulmonary emphysema, unspecified emphysema type ([facility]) Bilateral lower extremity edema Tobacco user Tobacco use disorder Hyperpigmentation of skin Other dyschromia Type 2 diabetes mellitus with hyperglycemia, with long-term current use of insulin ([facility])- Primary Encounter for dietary consultation Vitamin D deficiency Primary hypertension ([facility]) Unspecified essential hypertension Insulin long-term use ([facility]) Encounter for long-term (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 Hyperlipemia, mixed ([facility]) Mixed hyperlipidemia Microalbuminuria Proteinuria Class 3 severe obesity due to excess calories with serious comorbidity and body mass index (BMI) of 50.0 to 59.9 in adult ([facility]) documented in this encounter [facility] HealthcareEvaluation note* Diagnosis Hyperlipidemia, unspecified ([facility]) Bilateral lower extremity edema documented in this encounter [facility] HealthcareEvaluation note* Diagnosis Vitamin D deficiency, unspecified documented in this encounter [facility] note* Diagnosis Obstructive sleep apnea- Primary Obstructive sleep apnea (adult) (pediatric) Pulmonary emphysema, unspecified emphysema type ([facility]) Primary hypertension ([facility]) Unspecified essential hypertension Type 2 diabetes mellitus with complication, with long-term current use of insulin ([facility]) Anxiety and depression ([facility]) Bilateral lower extremity edema Pulmonary emphysema, unspecified emphysema type ([facility])- Primary Primary hypertension ([facility]) Unspecified essential hypertension Class 3 severe obesity with serious comorbidity and body mass index (BMI) of 50.0 to 59.9 in adult, unspecified obesity type ([facility]) Obstructive sleep apnea Obstructive sleep apnea (adult) (pediatric) Pulmonary hypertension ([facility]) Other chronic pulmonary heart diseases Tobacco user Tobacco use disorder Cardiomegaly Primary hypertension ([facility])- Primary Unspecified essential hypertension Gastroesophageal reflux disease, unspecified whether esophagitis present Type 2 diabetes mellitus with complication, with long-term current use of insulin ([facility]) Mixed hyperlipidemia ([facility]) Mixed hyperlipidemia Tobacco user Tobacco use disorder Encounter for screening mammogram for malignant neoplasm of breast Chronic obstructive pulmonary disease, unspecified ([facility]) Other specified chronic obstructive pulmonary disease ([facility]) Anxiety and depression ([facility]) Edema, unspecified Edema Hyperlipidemia, unspecified ([facility]) Diabetic polyneuropathy associated with type 2 diabetes mellitus ([facility]) Gout, unspecified cause, unspecified chronicity, unspecified site Non-seasonal allergic rhinitis, unspecified trigger Bilateral lower extremity edema COPD exacerbation ([facility]) Obstructive chronic bronchitis with exacerbation Pulmonary emphysema, unspecified emphysema type ([facility]) Venous insufficiency Unspecified venous (peripheral) insufficiency Candidiasis of breast COPD exacerbation ([facility])- Primary Obstructive chronic bronchitis with exacerbation Pulmonary hypertension ([facility]) Other chronic pulmonary heart diseases Class 3 severe obesity with serious comorbidity and body mass index (BMI) of 50.0 to 59.9 in adult, unspecified obesity type ([facility]) Encounter for subsequent annual wellness visit (AWV) in Medicare patient- Primary Type 2 diabetes mellitus with unspecified complications ([facility]) Pulmonary emphysema, unspecified emphysema type ([facility]) Moderate persistent asthma without complication ([facility]) Primary hypertension ([facility]/HCC) Unspecified essential hypertension Type 2 diabetes mellitus with complication, with long-term current use of insulin ([facility]) Class 3 severe obesity with serious comorbidity and body mass index (BMI) of 50.0 to 59.9 in adult, unspecified obesity type ([facility]/HCC) Tobacco user Tobacco use disorder Other headache syndrome Malignant neoplasm of cervix uteri, unspecified (CMS/HCC) Other specified disorders of adrenal gland ([facility]) Major depressive disorder, single episode, mild (HCC) ([facility]) Major depressive disorder, single episode, mild 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 exposed ([facility]) Chronic respiratory failure, unspecified whether with hypoxia or hypercapnia ([facility]) Disorder of adrenal gland, unspecified ([facility]) Non-pressure chronic ulcer of other part of right lower leg limited to breakdown of skin ([facility]) Non-recurrent acute suppurative otitis media of left ear without spontaneous rupture of tympanic membrane Primary hypertension ([facility])- Primary Unspecified essential hypertension Insomnia Insomnia, unspecified Type 2 diabetes mellitus with complication, with long-term current use of insulin ([facility]) Non-seasonal allergic rhinitis, unspecified trigger Type 2 diabetes mellitus with unspecified complications ([facility]) Anxiety and depression ([facility]) Gastro-esophageal reflux disease without esophagitis Edema, unspecified Edema Diabetic polyneuropathy associated with type 2 diabetes mellitus ([facility]) Chronic obstructive pulmonary disease, unspecified ([facility]) Pulmonary emphysema, unspecified emphysema type ([facility]) Bilateral lower extremity edema Tobacco user Tobacco use disorder Hyperpigmentation of skin Other dyschromia Bilateral lower extremity edema documented in this encounter [facility] HealthcareEvaluation note* Diagnosis Obstructive sleep apnea- Primary Obstructive sleep apnea (adult) (pediatric) Pulmonary emphysema, unspecified emphysema type (CMS/HCC) Primary hypertension ([facility]) Unspecified essential hypertension Type 2 diabetes mellitus with complication, with long-term current use of insulin ([facility]) Anxiety and depression ([facility]) Bilateral lower extremity edema Pulmonary emphysema, unspecified [...] 59.9 in adult, unspecified obesity type ([facility]/HCC) Encounter for subsequent annual wellness visit (AWV) in Medicare patient- Primary Type 2 diabetes mellitus with unspecified complications (CMS/HCC) Pulmonary emphysema, unspecified emphysema type (CMS/HCC) Moderate persistent asthma without complication (CMS/HCC) Primary hypertension (CMS/HCC) Unspecified essential hypertension Type 2 diabetes mellitus with complication, with long-term current use of insulin ([facility]) Class 3 severe obesity with serious comorbidity [...] lower leg limited to breakdown of skin ([facility]) Non-recurrent acute suppurative otitis media of left ear without spontaneous rupture of tympanic membrane Primary hypertension ([facility])- Primary Unspecified essential hypertension Insomnia Insomnia, unspecified Type 2 diabetes mellitus with complication, with long-term current use of insulin ([facility]) Non-seasonal allergic rhinitis, unspecified trigger Type 2 diabetes mellitus with unspecified complications ([facility]) Anxiety and depression ([facility]) Gastro-esophageal reflux disease without esophagitis Edema, unspecified Edema Diabetic polyneuropathy associated with type 2 diabetes mellitus ([facility]) Chronic obstructive pulmonary disease, unspecified ([facility]) Pulmonary emphysema, unspecified emphysema type ([facility]) Bilateral lower extremity edema Tobacco user Tobacco use disorder Hyperpigmentation of skin Other dyschromia Primary hypertension ([facility])- Primary Unspecified essential hypertension Diabetic polyneuropathy associated with type 2 diabetes mellitus ([facility]) Pulmonary emphysema, unspecified emphysema type ([facility]) Critical limb ischemia of right lower extremity ([facility]) PAD (peripheral artery disease) ([facility]) Unspecified peripheral vascular disease Gastroesophageal reflux disease, unspecified whether esophagitis present Bilateral lower extremity edema Venous ulcer of right leg ([facility]) Type 2 diabetes mellitus with complication, with long-term current use of insulin ([facility]) Tobacco user Tobacco use disorder Encounter for smoking cessation counseling Kidney stone Calculus of kidney Adrenal mass 1 cm to 4 cm in diameter ([facility]) Radiculopathy, lumbar region Thoracic or lumbosacral neuritis or radiculitis, unspecified Non-seasonal allergic rhinitis, unspecified trigger Type 2 diabetes mellitus with unspecified complications ([facility]) documented in this encounter [facility] HealthcareEvaluation note* Diagnosis Obstructive sleep apnea- Primary Obstructive sleep apnea (adult) (pediatric) Pulmonary emphysema, unspecified emphysema type (CMS/HCC) Primary hypertension ([facility]) Unspecified essential hypertension Type 2 diabetes mellitus with complication, with long-term current use of insulin ([facility]) Anxiety and depression ([facility]) Bilateral lower extremity edema Pulmonary emphysema, unspecified emphysema type (CMS/HCC)- Primary Primary hypertension ([facility]) Unspecified essential hypertension Class 3 severe obesity [...] polyneuropathy associated with type 2 diabetes mellitus ([facility]) Gout, unspecified cause, unspecified chronicity, unspecified site Non-seasonal allergic rhinitis, unspecified trigger Bilateral lower extremity edema COPD exacerbation ([facility]) Obstructive chronic bronchitis with exacerbation Pulmonary emphysema, unspecified emphysema type ([facility]) Venous insufficiency Unspecified venous (peripheral) insufficiency Candidiasis of breast COPD exacerbation ([facility])- Primary Obstructive chronic bronchitis with exacerbation Pulmonary hypertension (CMS/HCC) Other chronic pulmonary heart diseases Class 3 severe obesity with serious comorbidity and body mass index (BMI) of 50.0 to 59.9 in adult, unspecified obesity type ([facility]) Encounter for subsequent annual wellness visit (AWV) in Medicare patient- Primary Type 2 diabetes mellitus with unspecified complications ([facility]) Pulmonary emphysema, unspecified emphysema type ([facility]) Moderate persistent asthma without complication ([facility]) Primary hypertension ([facility]) Unspecified essential hypertension Type 2 diabetes mellitus with complication, with long-term current use of insulin ([facility] [facility]) Class 3 severe obesity with serious comorbidity and body mass index (BMI) of 50.0 to 59.9 in adult, unspecified obesity type (CMS/HCC) Tobacco user Tobacco use disorder Other headache syndrome Malignant neoplasm of cervix uteri, unspecified (CMS/HCC) Other specified disorders of adrenal gland (CMS/HCC) Major depressive disorder, single episode, mild (HCC) ([facility]) Major depressive disorder, single episode, mild 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 exposed ([facility]) Chronic respiratory failure, unspecified whether with hypoxia or hypercapnia (CMS/HCC) Disorder of adrenal gland, unspecified ([facility]) Non-pressure chronic ulcer of other part of right lower leg limited to breakdown of skin ([facility]) Non-recurrent acute suppurative otitis media of left ear without spontaneous rupture of tympanic membrane Primary hypertension ([facility])- Primary Unspecified essential hypertension Insomnia Insomnia, unspecified Type 2 diabetes mellitus with complication, with long-term current use of insulin ([facility]) Non-seasonal allergic rhinitis, unspecified trigger Type 2 diabetes mellitus with unspecified complications ([facility]) Anxiety and depression ([facility]) Gastro-esophageal reflux disease without esophagitis Edema, unspecified Edema Diabetic polyneuropathy associated with type 2 diabetes mellitus ([facility]) Chronic obstructive pulmonary disease, unspecified ([facility]) Pulmonary emphysema, unspecified emphysema type ([facility]) Bilateral lower extremity edema Tobacco user Tobacco use disorder Hyperpigmentation of skin Other dyschromia Primary hypertension ([facility])- Primary Unspecified essential hypertension Diabetic polyneuropathy associated with type 2 diabetes mellitus ([facility]) Pulmonary emphysema, unspecified emphysema type ([facility]) Critical limb ischemia of right lower extremity ([facility]) PAD (peripheral artery disease) ([facility]) Unspecified peripheral vascular disease Gastroesophageal reflux disease, unspecified whether esophagitis present Bilateral lower extremity edema Venous ulcer of right leg ([facility]) Type 2 diabetes mellitus with complication, with long-term current use of insulin ([facility]) Tobacco user Tobacco use disorder Encounter for smoking cessation counseling Kidney stone Calculus of kidney Adrenal mass 1 cm to 4 cm in diameter ([facility]) Radiculopathy, lumbar region Thoracic or lumbosacral neuritis or radiculitis, unspecified Non-seasonal allergic rhinitis, unspecified trigger Type 2 diabetes mellitus with unspecified complications ([facility]) Anxiety and depression ([facility])- Primary Morbid (severe) obesity due to excess calories ([facility]) Body mass index (BMI) 50.0-59.9, adult ([facility]) Malignant neoplasm of cervix uteri, unspecified ([facility]) Diabetic polyneuropathy associated with type 2 diabetes mellitus ([facility]) Chronic diastolic heart failure ([facility]) Chronic diastolic heart failure Primary hypertension ([facility]) Unspecified essential hypertension 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 ([facility]) Gastroesophageal reflux disease, unspecified whether esophagitis present Bilateral lower extremity edema Type 2 diabetes mellitus with complication, with long-term current use of insulin ([facility]) Tobacco user Tobacco use disorder Mixed hyperlipidemia ([facility]) Mixed hyperlipidemia Gout, unspecified cause, unspecified chronicity, unspecified site Vitamin deficiency Unspecified vitamin deficiency Gastro-esophageal reflux disease without esophagitis Edema, unspecified Edema Hyperlipidemia, unspecified ([facility]) Encounter for smoking cessation counseling Venous ulcer of right leg ([facility]) Antibiotic-induced yeast infection documented in this encounter [facility] HealthcareEvaluation note* Diagnosis Obstructive sleep apnea- Primary Obstructive sleep apnea (adult) (pediatric) Pulmonary emphysema, unspecified emphysema type ([facility]) Primary hypertension ([facility]) Unspecified essential hypertension Type 2 diabetes mellitus with complication, with long-term current use of insulin ([facility]) Anxiety and depression ([facility]) Bilateral lower extremity edema Pulmonary emphysema, unspecified emphysema type ([facility])- Primary Primary hypertension ([facility]) Unspecified essential hypertension Class 3 severe obesity with serious comorbidity and body mass index (BMI) of 50.0 to 59.9 in adult, unspecified obesity type Obstructive sleep apnea Obstructive sleep apnea (adult) (pediatric) Pulmonary hypertension ([facility]) Other chronic pulmonary heart diseases Tobacco user Tobacco use disorder Cardiomegaly Primary hypertension ([facility])- Primary Unspecified essential hypertension Gastroesophageal reflux disease, unspecified whether esophagitis present Type 2 diabetes mellitus with complication, with long-term current use of insulin ([facility]) Mixed hyperlipidemia ([facility]) Mixed hyperlipidemia Tobacco user Tobacco use disorder Encounter for screening mammogram for malignant neoplasm of breast Chronic obstructive pulmonary disease, unspecified Other specified chronic obstructive pulmonary disease Anxiety and depression ([facility]) Edema, unspecified Edema Hyperlipidemia, unspecified ([facility]) Diabetic polyneuropathy associated with type 2 diabetes mellitus ([facility]) Gout, unspecified cause, unspecified chronicity, unspecified site Non-seasonal allergic rhinitis, unspecified trigger Bilateral lower extremity edema COPD exacerbation ([facility]) Obstructive chronic bronchitis with exacerbation Pulmonary emphysema, unspecified emphysema type ([facility]) Venous insufficiency Unspecified venous (peripheral) insufficiency Candidiasis of breast COPD exacerbation ([facility])- Primary Obstructive chronic bronchitis with exacerbation Pulmonary hypertension ([facility]) Other chronic pulmonary heart diseases Class 3 severe obesity with serious comorbidity and body mass index (BMI) of 50.0 to 59.9 in adult, unspecified obesity type Encounter for subsequent annual wellness visit (AWV) in Medicare patient- Primary Type 2 diabetes mellitus with unspecified complications Pulmonary emphysema, unspecified emphysema type ([facility]) Moderate persistent asthma without complication ([facility]) Primary hypertension ([facility]) Unspecified essential hypertension Type 2 diabetes mellitus with complication, with long-term current use of insulin ([facility]) Class 3 severe obesity with serious comorbidity and body mass index (BMI) of 50.0 to 59.9 in adult, unspecified obesity type Tobacco user Tobacco use disorder Other headache syndrome Malignant neoplasm of cervix uteri, unspecified Other specified disorders of adrenal gland Major depressive disorder, single episode, mild (HCC) ([facility]) Major depressive disorder, single episode, mild 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 exposed Chronic respiratory failure, unspecified whether with hypoxia or hypercapnia Disorder of adrenal gland, unspecified Non-pressure chronic ulcer of other part of right lower leg limited to breakdown of skin ([facility]) Non-recurrent acute suppurative otitis media of left ear without spontaneous rupture of tympanic membrane Primary hypertension ([facility])- Primary Unspecified essential hypertension Insomnia Insomnia, unspecified Type 2 diabetes mellitus with complication, with long-term current use of insulin ([facility]) Non-seasonal allergic rhinitis, unspecified trigger Type 2 diabetes mellitus with unspecified complications Anxiety and depression ([facility]) Gastro-esophageal reflux disease without esophagitis Edema, unspecified Edema Diabetic polyneuropathy associated with type 2 diabetes mellitus ([facility]) Chronic obstructive pulmonary disease, unspecified Pulmonary emphysema, unspecified emphysema type (CMS/HCC) Bilateral lower extremity edema Tobacco user Tobacco use disorder Hyperpigmentation of skin Other dyschromia Primary hypertension (CMS/HCC)- Primary Unspecified essential hypertension Diabetic polyneuropathy associated with type 2 diabetes mellitus ([facility]) Pulmonary emphysema, unspecified emphysema type (CMS/HCC) Critical limb ischemia of right lower extremity ([facility]) PAD (peripheral artery disease) ([facility]) Unspecified peripheral vascular disease Gastroesophageal reflux disease, unspecified whether esophagitis present Bilateral lower extremity edema Venous ulcer of right leg ([facility]) Type 2 diabetes mellitus with complication, with long-term current use of insulin ([facility]) Tobacco user Tobacco use disorder Encounter for smoking cessation counseling Kidney stone Calculus of kidney Adrenal mass 1 cm to 4 cm in diameter ([facility]) Radiculopathy, lumbar region Thoracic or lumbosacral neuritis or radiculitis, unspecified Non-seasonal allergic rhinitis, unspecified trigger Type 2 diabetes mellitus with unspecified complications Anxiety and depression ([facility])- Primary Morbid (severe) obesity due to excess calories ([facility]) Body mass index (BMI) 50.0-59.9, adult ([facility]) Malignant neoplasm of cervix uteri, unspecified Diabetic polyneuropathy associated with type 2 diabetes mellitus ([facility]) Chronic diastolic heart failure ([facility]) Chronic diastolic heart failure Primary hypertension ([facility]) Unspecified essential hypertension 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 Gastroesophageal reflux disease, unspecified whether esophagitis present Bilateral lower extremity edema Type 2 diabetes mellitus with complication, with long-term current use of insulin ([facility]) Tobacco user Tobacco use disorder Mixed hyperlipidemia ([facility]) Mixed hyperlipidemia Gout, unspecified cause, unspecified chronicity, unspecified site Vitamin deficiency Unspecified vitamin deficiency Gastro-esophageal reflux disease without esophagitis Edema, unspecified Edema Hyperlipidemia, unspecified ([facility]) Encounter for smoking cessation counseling Venous ulcer of right leg ([facility]) Antibiotic-induced yeast infection Type 2 diabetes mellitus with hyperglycemia, with long-term current use of insulin ([facility])- Primary Encounter for dietary consultation Vitamin D deficiency Primary hypertension ([facility]) Unspecified essential hypertension Insulin long-term use ([facility]) Encounter for long-term (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 Hyperlipemia, mixed ([facility]) Mixed hyperlipidemia Microalbuminuria Proteinuria Class 3 severe obesity due to excess calories with serious comorbidity and body mass index (BMI) of 50.0 to 59.9 in adult documented in this encounter [facility] HealthcareEvaluation note* Diagnosis Obstructive sleep apnea- Primary Obstructive sleep apnea (adult) (pediatric) Pulmonary emphysema, unspecified emphysema type ([facility]) Primary hypertension ([facility]) Unspecified essential hypertension Type 2 diabetes mellitus with complication, with long-term current use of insulin ([facility]) Anxiety and depression ([facility]) Bilateral lower extremity edema Pulmonary emphysema, unspecified emphysema type ([facility])- Primary Primary hypertension ([facility]) Unspecified essential hypertension Class 3 severe obesity with serious comorbidity and body mass index (BMI) of 50.0 to 59.9 in adult, unspecified obesity type Obstructive sleep apnea Obstructive sleep apnea (adult) [...] of breast Chronic obstructive pulmonary disease, unspecified Other specified chronic obstructive pulmonary disease Anxiety and depression ([facility]) Edema, unspecified Edema Hyperlipidemia, unspecified (CMS/HCC) Diabetic polyneuropathy associated with type 2 diabetes mellitus ([facility]) Gout, unspecified cause, unspecified chronicity, unspecified site Non-seasonal allergic rhinitis, unspecified trigger Bilateral lower extremity edema COPD exacerbation ([facility]) Obstructive chronic bronchitis with exacerbation Pulmonary emphysema, unspecified emphysema type ([facility]) Venous insufficiency Unspecified venous (peripheral) insufficiency Candidiasis of breast COPD exacerbation ([facility])- Primary Obstructive chronic bronchitis with exacerbation Pulmonary hypertension ([facility]) Other chronic pulmonary heart diseases Class 3 severe obesity with serious comorbidity and body mass index (BMI) of 50.0 to 59.9 in adult, unspecified obesity type Encounter for subsequent annual wellness visit (AWV) in Medicare patient- Primary Type 2 diabetes mellitus with unspecified complications Pulmonary emphysema, unspecified emphysema type ([facility]) Moderate persistent asthma without complication ([facility]) Primary hypertension ([facility]) Unspecified essential hypertension Type 2 diabetes mellitus with complication, with long-term current use of insulin ([facility]) Class 3 severe obesity with serious comorbidity and body mass index (BMI) of 50.0 to 59.9 in adult, unspecified obesity type Tobacco user Tobacco use disorder Other headache syndrome Malignant neoplasm of cervix uteri, unspecified Other specified disorders of adrenal gland Major depressive disorder, single episode, mild (HCC) ([facility]) Major depressive disorder, single episode, mild 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 exposed Chronic respiratory failure, unspecified whether with hypoxia or hypercapnia Disorder of adrenal gland, unspecified Non-pressure chronic ulcer of other part of right lower leg limited to breakdown of skin ([facility]) Non-recurrent acute suppurative otitis media of left ear without spontaneous rupture of tympanic membrane Primary hypertension ([facility])- Primary Unspecified essential hypertension Insomnia Insomnia, unspecified Type 2 diabetes mellitus with complication, with long-term current use of insulin ([facility]) Non-seasonal allergic rhinitis, unspecified trigger Type 2 diabetes mellitus with unspecified complications Anxiety and depression ([facility]) Gastro-esophageal reflux disease without esophagitis Edema, unspecified Edema Diabetic polyneuropathy associated with type 2 diabetes mellitus ([facility]) Chronic obstructive pulmonary disease, unspecified Pulmonary emphysema, unspecified emphysema type ([facility]) Bilateral lower extremity edema Tobacco user Tobacco use disorder Hyperpigmentation of skin Other dyschromia Primary hypertension ([facility])- Primary Unspecified essential hypertension Diabetic polyneuropathy associated with type 2 diabetes mellitus ([facility]) Pulmonary emphysema, unspecified emphysema type ([facility]) Critical limb ischemia of right lower extremity ([facility]) PAD (peripheral artery disease) ([facility]) Unspecified peripheral vascular disease Gastroesophageal reflux disease, unspecified whether esophagitis present Bilateral lower extremity edema Venous ulcer of right leg ([facility]) Type 2 diabetes mellitus with complication, with long-term current use of insulin ([facility]) Tobacco user Tobacco use disorder Encounter for smoking cessation counseling Kidney stone Calculus of kidney Adrenal mass 1 cm to 4 cm in diameter ([facility]) Radiculopathy, lumbar region Thoracic or lumbosacral neuritis or radiculitis, unspecified Non-seasonal allergic rhinitis, unspecified trigger Type 2 diabetes mellitus with unspecified complications Anxiety and depression ([facility])- Primary Morbid (severe) obesity due to excess calories ([facility]) Body mass index (BMI) 50.0-59.9, adult ([facility]) Malignant neoplasm of cervix uteri, unspecified Diabetic polyneuropathy associated with type 2 diabetes mellitus ([facility]) Chronic diastolic heart failure ([facility]) Chronic diastolic heart failure Primary hypertension ([facility]) Unspecified essential hypertension 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 Gastroesophageal reflux disease, unspecified whether esophagitis present Bilateral lower extremity edema Type 2 diabetes mellitus with complication, with long-term current use of insulin ([facility]) Tobacco user Tobacco use disorder Mixed hyperlipidemia ([facility]) Mixed hyperlipidemia Gout, unspecified cause, unspecified chronicity, unspecified site Vitamin deficiency Unspecified vitamin deficiency Gastro-esophageal reflux disease without esophagitis Edema, unspecified Edema Hyperlipidemia, unspecified ([facility]) Encounter for smoking cessation counseling Venous ulcer of right leg ([facility]) Antibiotic-induced yeast infection Chronic obstructive pulmonary disease, unspecified documented in this encounter [facility] HealthcareEvaluation note* Diagnosis Obstructive sleep apnea- Primary Obstructive sleep apnea (adult) (pediatric) Pulmonary emphysema, unspecified emphysema type ([facility]) Primary hypertension ([facility]) Unspecified essential hypertension Type 2 diabetes mellitus with complication, with long-term current use of insulin ([facility]) Anxiety and depression ([facility]) Bilateral lower extremity edema Pulmonary emphysema, unspecified emphysema type ([facility])- Primary Primary hypertension ([facility]) Unspecified essential hypertension Class 3 severe obesity with serious comorbidity and body mass index (BMI) of 50.0 to 59.9 in adult, unspecified obesity type Obstructive sleep apnea Obstructive sleep apnea (adult) (pediatric) Pulmonary hypertension ([facility]) Other chronic pulmonary heart diseases Tobacco user Tobacco use disorder Cardiomegaly Primary hypertension ([facility])- Primary Unspecified essential hypertension Gastroesophageal reflux disease, unspecified whether esophagitis present Type 2 diabetes mellitus with complication, with long-term current use of insulin ([facility]) Mixed hyperlipidemia ([facility]) Mixed hyperlipidemia Tobacco user Tobacco use disorder Encounter for screening mammogram for malignant neoplasm of breast Chronic obstructive pulmonary disease, unspecified Other specified chronic obstructive pulmonary disease Anxiety and depression ([facility]) Edema, unspecified Edema Hyperlipidemia, unspecified ([facility]) Diabetic polyneuropathy associated with type 2 diabetes mellitus ([facility]) Gout, unspecified cause, unspecified chronicity, unspecified site Non-seasonal allergic rhinitis, unspecified trigger Bilateral lower extremity edema COPD exacerbation ([facility]) Obstructive chronic bronchitis with exacerbation Pulmonary emphysema, unspecified emphysema type ([facility]) Venous insufficiency Unspecified venous (peripheral) insufficiency Candidiasis of breast COPD exacerbation ([facility])- Primary Obstructive chronic bronchitis with exacerbation Pulmonary hypertension ([facility]) Other chronic pulmonary heart diseases Class 3 severe obesity with serious comorbidity and body mass index (BMI) of 50.0 to 59.9 in adult, unspecified obesity type Encounter for subsequent annual wellness visit (AWV) in Medicare patient- Primary Type 2 diabetes mellitus with unspecified complications Pulmonary emphysema, unspecified emphysema type ([facility]) Moderate persistent asthma without complication ([facility]) Primary hypertension ([facility]) Unspecified essential hypertension Type 2 diabetes mellitus with complication, with long-term current use of insulin ([facility]) Class 3 severe obesity with serious comorbidity and body mass index (BMI) of 50.0 to 59.9 in adult, unspecified obesity type Tobacco user Tobacco use disorder Other headache syndrome Malignant neoplasm of cervix uteri, unspecified Other specified disorders of adrenal gland Major depressive disorder, single episode, mild (HCC) ([facility]) Major depressive disorder, single episode, mild 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 exposed Chronic respiratory failure, unspecified whether with hypoxia or hypercapnia Disorder of adrenal gland, unspecified Non-pressure chronic ulcer of other part of right lower leg limited to breakdown of skin ([facility]) Non-recurrent acute suppurative otitis media of left ear without spontaneous rupture of tympanic membrane Primary hypertension ([facility])- Primary Unspecified essential hypertension Insomnia Insomnia, unspecified Type 2 diabetes mellitus with complication, with long-term current use of insulin ([facility]) Non-seasonal allergic rhinitis, unspecified trigger Type 2 diabetes mellitus with unspecified complications Anxiety and depression ([facility]) Gastro-esophageal reflux disease without esophagitis Edema, unspecified Edema Diabetic polyneuropathy associated with type 2 diabetes mellitus ([facility]) Chronic obstructive pulmonary disease, unspecified Pulmonary emphysema, unspecified emphysema type ([facility]) Bilateral lower extremity edema Tobacco user Tobacco use disorder Hyperpigmentation of skin Other dyschromia Primary hypertension ([facility])- Primary Unspecified essential hypertension Diabetic polyneuropathy associated with type 2 diabetes mellitus ([facility]) Pulmonary emphysema, unspecified emphysema type ([facility]) Critical limb ischemia of right lower extremity ([facility]) PAD (peripheral artery disease) ([facility]) Unspecified peripheral vascular disease Gastroesophageal reflux disease, unspecified whether esophagitis present Bilateral lower extremity edema Venous ulcer of right leg ([facility]) Type 2 diabetes mellitus with complication, with long-term current use of insulin ([facility]) Tobacco user Tobacco use disorder Encounter for smoking cessation counseling Kidney stone Calculus of kidney Adrenal mass 1 cm to 4 cm in diameter ([facility]) Radiculopathy, lumbar region Thoracic or lumbosacral neuritis or radiculitis, unspecified Non-seasonal allergic rhinitis, unspecified trigger Type 2 diabetes mellitus with unspecified complications Anxiety and depression ([facility])- Primary Morbid (severe) obesity due to excess calories ([facility]) Body mass index (BMI) 50.0-59.9, adult ([facility]) Malignant neoplasm of cervix uteri, unspecified Diabetic polyneuropathy associated with type 2 diabetes mellitus ([facility]) Chronic diastolic heart failure ([facility]) Chronic diastolic heart failure Primary hypertension ([facility]) Unspecified essential hypertension 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 Gastroesophageal reflux disease, unspecified whether esophagitis present Bilateral lower extremity edema Type 2 diabetes mellitus with complication, with long-term current use of insulin ([facility]) Tobacco user Tobacco use disorder Mixed hyperlipidemia ([facility]) Mixed hyperlipidemia Gout, unspecified cause, unspecified chronicity, unspecified site Vitamin deficiency Unspecified vitamin deficiency Gastro-esophageal reflux disease without esophagitis Edema, unspecified Edema Hyperlipidemia, unspecified ([facility]) Encounter for smoking cessation counseling Venous ulcer of right leg ([facility]) Antibiotic-induced yeast infection Primary hypertension ([facility])- Primary Unspecified essential hypertension Diabetic polyneuropathy associated with type 2 diabetes mellitus ([facility]) Chronic diastolic heart failure ([facility]) Chronic diastolic heart failure Bilateral lower extremity edema Morbid (severe) obesity due to excess calories ([facility]) Type 2 diabetes mellitus with complication, with long-term current use of insulin ([facility]) Anxiety and depression ([facility]) Cigarette nicotine dependence without complication Encounter for screening mammogram for malignant neoplasm of breast Insomnia Insomnia, unspecified Non-seasonal allergic rhinitis, unspecified trigger Type 2 diabetes mellitus with unspecified complications Vitamin D deficiency, unspecified Gastro-esophageal reflux disease without esophagitis PAD (peripheral artery disease) ([facility]) Unspecified peripheral vascular disease Gastroesophageal reflux disease, unspecified whether esophagitis present Venous ulcer of right leg ([facility]) documented in this encounter [facility] general [...] History sepsis 2011 Hospitalization History SEE ABOVE Weekdone Other Hospital course Narrative No data available for this section [facility] Analyze Re progress note No data available for this section [facility] reason for referral (narrative) , Referral to Dr. 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 Cutting Expl anation Advance Directives and Living Will Power of Concessions Manager Summary Purpose Family History No Family History Records FoundNo Family History Records FoundNo Family History Records FoundNo Family History Records Found No data available for this section No Family History Records FoundNo Family History Records Found Additional Source Comments INFORMATION SOURCE (unrecogn ized section and content) DATE CREATED AUTHOR 10/30/2019 [facility] DATE CREATED AUTHOR AUTHOR'S ORGANIZ ATION 09/15/2020 [facility] DATE CREATED AUTHOR AUTHOR'S ORGANIZ ATION 12/19/2022 [facility] DATE CREATED AUTHOR AUTHOR'S ORGANIZ ATION 06/03/2024 [facility] DATE CREATED AUTHOR AUTHOR'S ORGANIZ ATION 10/23/2024 [facility] DATE CREATED AUTHOR AUTHOR'S ORGANIZ ATION 10/28/2024 [facility] Special[facility] EPIC Care Team (unrecognized sect ion and content) Electrical Accessories Assembler Relationship Specialty Start Date End Date Ty Amin MD PCP - General Family Medicine 01/05/23 Electrical Accessories Assembler Relationship Specialty Start Date End Date Ty Amin MD PCP - General Family Medicine 01/05/23 Electrical Accessories Assembler Relationship Specialty Start Date End Date Ty Amin MD [address] [place] [address] PCP - General Family Medicine 09/20/23 Mckayla Blas NP [address] [place] [address] PCP - [facility] 09/07/23 09/05/90 Mckayla Blas NP [address] [place] [address] Nurse Practitioner Family Medicine 09/20/23 Electrical Accessories Assembler Relationship Specialty Start Date End Date Ty Amin MD [address] [place] [address] PCP - General Family Medicine 09/20/23 Mckayla Blas NP [address] [place] [address] PCP - [facility] 09/07/23 09/05/90 Mckayla Blas NP [address] [place] [address] Nurse Practitioner Family Medicine 09/20/23 Electrical Accessories Assembler Relationship Specialty Start Date End Date Ty Amin MD [address] [place] [address] PCP - General Family Medicine 09/20/23 Mckayla Blas NP [address] [place] [address] PCP [facility] 09/07/23 09/05/90 Mckayla Blas NP [address] [place] [address] Nurse Practitioner Family Medicine 09/20/23 Electrical Accessories Assembler Relationship Specialty Start Date End Date Ty Amin MD [address] [place] [address] PCP - General Family Medicine 09/20/23 Mckayla Blas NP [address] [place] [address] PCP - [facility] 09/07/23 09/05/90 Mckayla Bals NP [address] [place] [address] Nurse Practitioner Family Medicine 09/20/23 Electrical Accessories Assembler Relationship Specialty Start Date End Date Ty Amin MD [address] [place] [address] PCP - General Family Medicine 09/20/23 Mckayla Blas NP [address] [place] [address] [facility] 09/07/23 09/05/90 Mckayla Blas NP [address] [place] [address] Nurse Practitioner Family Medicine 09/20/23 Electrical Accessories Assembler Relationship Specialty Start Date End Date Ty Amin MD [address] [place] [address] PCP - General Family Medicine 09/20/23 Mckayla Blas NP [address] [place] [address] PCP - [facility] 09/07/23 09/05/90 Mckayla Blas NP [address] [place] [address] Nurse Practitioner Family Medicine 09/20/23 Electrical Accessories Assembler Relationship Specialty Start Date End Date Ty Amin MD [address] [place] [address] PCP - General Family Medicine 09/20/23 Mckayla Blas NP [address] [place] [address] PCP - [facility] 09/07/23 09/05/90 Mckayla Blas NP [address] [place] [address] Nurse Practitioner Family Medicine 09/20/23 Electrical Accessories Assembler Relationship Specialty Start Date End Date Ty Amin MD [address] [place] [address] PCP - General Family Medicine 09/20/23 Mckayla Blas NP [address] [place] [address] PCP [facility] 09/07/23 09/05/90 Mckayla Blas NP [address] [place] [address] Nurse Practitioner Family Medicine 09/20/23 Electrical Accessories Assembler Relationship Specialty Start Date End Date Ty Amin MD [address] [place] [address] PCP - General Family Medicine 09/20/23 Mckayla Blas NP [address] [place] [address] PCP - [facility] 09/07/23 09/05/90 Mckayla Blas NP [address] [place] [address] Nurse Practitioner Family Medicine 09/20/23 Electrical Accessories Assembler Relationship Specialty Start Date End Date Ty Amin MD [address] [place] [address] PCP - General Family Medicine 09/20/23 Mckayla Blas NP [address] [place] [address] [facility] 09/07/23 09/05/90 Mckayla Blas NP [address] [place] [address] Nurse Practitioner Family Medicine 09/20/23 Electrical Accessories Assembler Relationship Specialty Start Date End Date Ty Amin MD [address] [place] [address] PCP - General Family Medicine 09/20/23 Mckayla Blas NP [address] [place] [address] PCP - [facility] 09/07/23 09/05/90 Mckayla Blas NP [address] [place] [address] Nurse Practitioner Family Medicine 09/20/23 Electrical Accessories Assembler Relationship Specialty Start Date End Date Ty Amin MD [address] [place] [address] PCP - General Family Medicine 09/20/23 Mckayla Blas NP [address] [place] [address] PCP - [facility] 09/07/23 09/05/90 Mckayla Blas NP [address] [place] [address] Nurse Practitioner Family Medicine 09/20/23 Electrical Accessories Assembler Relationship Specialty Start Date End Date Ty Amin MD [address] [place] [address] PCP - General Family Medicine 09/20/23 Mckayla Blas NP [address] [place] [address] PCP [facility] 09/07/23 09/05/90 Mckayla Blas NP [address] [place] [address] Nurse Practitioner Family Medicine 09/20/23 Electrical Accessories Assembler Relationship Specialty Start Date End Date Ty Amin MD [address] [place] [address] PCP - General Family Medicine 09/20/23 Mckayla Blas NP [address] [place] [address] PCP - [facility] 09/07/23 09/05/90 Mckayla Blas NP [address] [place] [address] Nurse Practitioner Family Medicine 09/20/23 Electrical Accessories Assembler Relationship Specialty Start Date End Date Ty Amin MD [address] [place] [address] PCP - General Family Medicine 09/20/23 Mckayla Blas NP [address] [place] [address] [facility] 09/07/23 09/05/90 Mckayla Blas NP [address] [place] [address] Nurse Practitioner Family Medicine 09/20/23 Electrical Accessories Assembler Relationship Specialty Start Date End Date Ty Amin MD [address] [place] [address] PCP - General Family Medicine 09/20/23 Mckayla Blas NP [address] [place] [address] PCP - [facility] 09/07/23 09/05/90 Mckayla Blas NP [address] [place] [address] Nurse Practitioner Family Medicine 09/20/23 REASON FOR [...] BE BASED ON THE PRIMARY CLINICAL RECORDS. [employer] provides no warranty or guarantee of the accuracy or completeness of information in this document.
== END 2024-11-25 11:01 | disposition home or self-care (01) ==
LOC: WC 11:01
PROVIDERS: PCP Nurse Practitioner; Visit Provider Physician Assistant
DX: I87.311 Chronic venous hypertension (idiopathic) with ulcer of right lower extremity (principal); L97.812 Non-pressure chronic ulcer of other part of right lower leg with fat layer exposed
CPT/HCPCS: G0463

== ENCOUNTER 2024-12-04 16:28 | Observation (INO) | payer MEDICARE, OTHER, SELFPAY ==
[2024-12-04] VITALS (48 sets, daily range): BP systolic 94–165; BP diastolic 60–87; PULSE 90–107; TEMP 36.8–39.6; O2SAT 82–97; BMI 54.8
--- NOTE | 2024-12-04 16:33 | ECG_ITS ---
The [facility] Test Date: 2024-12-04 Pat Name: SINA NICHOLE Department: Room: - Gender: Female Engine House Helper: : 1970 Requested By: Order Number: [id number] Reading MD: BHARAT AGUILAR M.D. Measurements Intervals [place] Rate: 101 P: 49 AR: 158 QRS: 3 QRSD: 76 T: 90 QT: 330 QTc: 388 Interpretive Statements 1120 Sinus tachycardia 3114 Cannot rule out anterior myocardial infarction, age undetermined 8102 Low QRS voltage in chest leads 9150 abnormal ECG Compared to ECG 09/10/2023 14:14:24 Myocardial infarct finding now present Left-axis deviation no longer present Electronically Signed On 12-04-2024 21:14:25 EDT by BHARAT AGUILAR M.D.
--- NOTE | 2024-12-04 16:35 | ED.GENADUL1 ---
HPI HPI - General Adult General Chief complaint: Altered Mental Status Stated complaint: UNRESPONSIVE Time Seen by Provider: 12/04/24 16:30 History of Present Illness HPI narrative: 54-year-old female presented for being tired and falling asleep on and off all day. She was found to have a fever at triage. She states she has had a slight cough but does not complain of any unusual pain. She always has some pain from arthritis which is unchanged. She states she has a wound on her leg. Prior to the paramedics arrival she was reportedly unresponsive and somebody, not the paramedics, gave her Narcan and she seemed to wake up. She did not realize that she has a fever. Related Data Home Medications ?Medication ?Instructions ?Recorded ?Confirmed acetaminophen 500 mg capsule 1,000 mg PO Q6H PRN fever or pain 03/20/23 12/04/24 amitriptyline 25 mg tablet 25 mg PO DAILY 03/20/23 12/04/24 aspirin 81 mg tablet,delayed 81 mg PO DAILY 03/20/23 12/04/24 release (Adult Aspirin Regimen) budesonide-formoterol HFA 160 2 inh inhalation BID 03/20/23 12/04/24 mcg-4.5 mcg/actuation aerosol inhaler (Symbicort) furosemide 40 mg tablet 40 mg PO DAILY 03/20/23 12/04/24 insulin aspart U-100 100 unit/mL 1 sliding scale dose subcut 03/20/23 12/04/24 (3 mL) subcutaneous pen (Novolog USEASDIRECTD FlexPen U-100 Insulin aspart) insulin glargine 100 unit/mL 58 unit subcut BID 03/20/23 12/04/24 subcutaneous solution (Lantus U-100 Insulin) lisinopril 20 mg tablet 20 mg PO DAILY 03/20/23 12/04/24 omeprazole 20 mg capsule,delayed 20 mg PO DAILY 03/20/23 12/04/24 release pregabalin 300 mg capsule 300 mg PO Q12H 03/20/23 12/04/24 dapagliflozin propanediol 10 mg 10 mg PO .QD 09/10/23 12/04/24 tablet ergocalciferol (vitamin D2) 1,250 50,000 unit PO QWEEK 09/10/23 12/04/24 mcg (50,000 unit) capsule potassium chloride 10 mEq 10 meq PO .QD 09/10/23 12/04/24 capsule,extended release simvastatin 10 mg tablet 10 mg PO QAM 09/10/23 12/04/24 baclofen 10 mg tablet 10 mg PO TID 06/24/24 12/04/24 Previous Rx's ?Medication ?Instructions ?Recorded duloxetine 60 mg capsule,delayed 60 mg PO BID #60 caps 04/05/23 release hydralazine 25 mg tablet 25 mg PO BID #60 tabs 09/13/23 oseltamivir 75 mg capsule 75 mg PO BID #6 caps 09/13/23 hydrocodone 5 mg-acetaminophen 325 1 tab PO TID PRN pain #80 tabs 06/30/24 mg tablet hydrocodone 5 mg-acetaminophen 325 See Rx Instructions .Route 09/09/24 mg tablet .COMPLEX PRN pain #80 tabs Allergies Allergy/AdvReac Type Severity Reaction Status Date / Time No Known Drug Allergies Allergy Verified 06/10/24 08:21 Opioid HPI Opioid Management Most Recent Opioid Data: Last Pain Scale 6 06/10/24, 08:25 Last Pain Intensity 0 09/12/23, 11:19 Last MAR Pain Assessment Today, 16:45 Review of Systems ROS Narrative A ten point review of systems is negative except as noted above. [facility] Medical History COPD exacerbation ?J44.1 - Chronic obstructive pulmonary disease with (acute) exacerbation (ICD-10) Influenza A ?J10.1 - Influenza due to other identified influenza virus with other respiratory manifestations (ICD-10) Hypoxia ?R09.02 - Hypoxemia (ICD-10) Hypertension ?I10 - Essential (primary) hypertension (ICD-10) Obesity ?E66.9 - Obesity, unspecified (ICD-10) Amputation toe ?S98.139A - Complete traumatic amputation of one unspecified lesser toe, initial encounter (ICD-10) Neuropathy ?G62.9 - Polyneuropathy, unspecified (ICD-10) Acid reflux ?K21.9 - Gastro-esophageal reflux disease without esophagitis (ICD-10) Diabetes ?E11.9 - Type 2 diabetes mellitus without complications (ICD-10) COPD (chronic obstructive pulmonary disease) ?J44.9 - Chronic obstructive pulmonary disease, unspecified (ICD-10) Asthma ?J45.909 - Unspecified asthma, uncomplicated (ICD-10) High cholesterol ?E78.00 - Pure hypercholesterolemia, unspecified (ICD-10) Surgical History History of hammertoe correction ?Z98.890 - Other specified postprocedural states (ICD-10) ?Z87.39 - Personal history of other diseases of the musculoskeletal system and connective tissue (ICD-10) Hx of cholecystectomy ?Z90.49 - Acquired absence of other specified parts of digestive tract (ICD-10) History of hysterectomy ?Z90.710 - Acquired absence of both cervix and uterus (ICD-10) Social History Within the past year, how often did you have a drink containing alcohol: never Score interpretation: A score less than 3 is consistent with normal alcohol consumption. Smoking status: Former smoker Highest level of school completed/degree received: Associate degree: occupational, technical, vocational program Little interest or pleasure in doing things: not at all Feeling down, depressed, or hopeless: not at all Exam Narrative Exam Narrative: Nurses note and vital signs reviewed and patient is not hypoxic. General: The patient appears in no apparent distress. Patient is resting comfortably on cart. Skin: Warm, dry, no pallor noted. There is no rash noted. Head: Normocephalic, atraumatic Eye: Normal conjunctiva, no drainage Ears, Nose, Mouth, and Throat: oral mucosa is moist. Nares patent. Cardiovascular: Regular Rate and Rhythm, mildly tachycardic Respiratory: Patient is in no distress, no accessory muscle use, lungs are clear to auscultation, no wheezing, rales or rhonchi GI: Obese and nontender Musculoskeletal: Extremities are obese. She has a large wound on her right lower leg for which she sees wound care. There is some loss of skin but there is no purulent drainage or surrounding erythema. There is also a small skin wound on the posterior aspect of her left leg inferiorly as well. No purulent drainage or surrounding erythema. Neurological: A&O x4, normal speech Psychiatric: Cooperative Constitutional Vital Signs, click to edit/add: Last Vital Signs Temp 99.4 F 12/04/24 18:32 Pulse 93 H 12/04/24 17:50 Resp 19 12/04/24 17:50 BP 130/71 12/04/24 17:46 Pulse Ox 94 L 12/04/24 18:29 O2 Del Method Nasal Cannula 12/04/24 18:29 O2 Flow Rate 4 12/04/24 18:29 Course Vital Signs Vital signs: Vital Signs Blood Pressure 151/73 H 12/04/24 16:29 Temperature 99.4 F 12/04/24 18:32 Pulse Rate 93 H 12/04/24 17:50 Respiratory Rate 19 12/04/24 17:50 Blood Pressure 130/71 12/04/24 17:46 Pulse Oximetry 94 L 12/04/24 18:29 Oxygen Delivery Method Nasal Cannula 12/04/24 18:29 Oxygen Delivery Flow Rate 4 12/04/24 18:29 Medical Decision Making MDM Narrative Medical decision making narrative: The patient presented with weakness and fever. WBC is 20,000. Chest x-ray does not show an infiltrate and UA does not show evidence of UTI. Blood cultures are ordered and CT scan is pending. She has a wound on her right leg but that does not appear to be acutely infected. The patient is signed out to Dr. Mir at change of shift. Differential Diagnosis Differential Diagnosis: Pneumonia, UTI, cellulitis, intra-abdominal infection Lab Data Lab results reviewed: Yes I reviewed the patient's lab results Labs: Lab Results 12/04/24 12/04/24 Range/Units 16:44 16:52 WBC 20.7 H (4.0-11.0) 10^3/uL RBC 5.62 H (4.20-5.40) 10^6/uL Hgb 16.5 H (12.0-16.0) g/dL Hct 51.0 H (36.0-48.0) % MCV 90.7 (81.0-99.0) fL MCH 29.4 (26.7-34.0) pg MCHC 32.4 (29.9-35.2) g/dL RDW 15.4 H (11.0-15.0) % Plt Count 118 L (150-450) 10^3/uL MPV 12.4 (9.5-13.5) fL Neut % (Auto) 87.7 H (43.0-75.0) % Lymph % (Auto) 7.3 L (20.5-60.0) % [place] % (Auto) 4.1 (1.7-12.0) % Eos % (Auto) 0.2 L (0.9-7.0) % Baso % (Auto) 0.2 (0.2-2.0) % Neut # (Auto) 18.1 H (1.4-6.5) 10^3/uL Lymph # (Auto) 1.5 (1.2-3.8) 10^3/uL [place] # (Auto) 0.8 (0.3-0.8) 10^3/uL Eos # (Auto) 0.1 (0.0-0.7) 10^3/uL Baso # (Auto) 0.1 (0.0-0.1) 10^3/uL Abs Immat Gran (auto) 0.10 H (0.00-0.03) 10^3/uL Imm/Tot Granulo (auto) 0.5 (0.0-0.5) % Sodium 140 (136-145) mmol/L Potassium 4.8 (3.5-5.1) mmol/L Chloride 101 (98-107) mmol/L Carbon Dioxide 31.4 (21.0-32.0) mmol/L Anion Gap 12.4 BUN 15.0 (7.0-18.0) mg/dL Creatinine 0.83 (0.55-1.02) mg/dL Est GFR ( Amer) >60 (>=60 mL/min/1.73m^2) Est GFR (Non-Af Amer) >60 (>=60 mL/min/1.73m^2) BUN/Creatinine Ratio 18.1 Glucose 231 H (74-106) mg/dL Lactate 1.8 (0.4-2.0) mmol/L Calcium 8.8 (8.5-10.1) mg/dL Urine Color Yellow (YELLOW) Urine Clarity Clear (CLEAR) Urine pH 6.5 (5.0-9.0) Ur Specific [place] 1.020 (1.005-1.025) Urine Protein 100 A (NEG/TRACE) mg/dL Urine Glucose (UA) Negative (NEGATIVE) mg/dL Urine Ketones Negative (NEGATIVE) mg/dL Urine Occult Blood Negative (NEGATIVE) Urine Nitrite Negative (NEGATIVE) Urine Bilirubin Negative (NEGATIVE) Urine Urobilinogen 1.0 (0.2-1.0) EU/dL Ur Leukocyte Esterase Negative (NEGATIVE) Urine RBC 0-2 (0-2) #/HPF Urine WBC None seen (NONE SEEN) #/HPF Ur Squamous Epith Cells Few A (NONE/RARE) #/LPF Urine Crystals None seen (None Seen) #/HPF Urine Bacteria Trace A (NONE SEEN) #/HPF Urine Casts None seen (NONE SEEN) #/LPF Urine Mucus Small A (NONE SEEN) Ur Culture Indicated? No SARS-CoV-2 Ag (CV2AG) Negative (NEGATIVE) Imaging Data Chest x-ray: Radiologist's impression: No acute process Discharge Plan Discharge Patient Disposition: Still a Patient
[2024-12-04] MEDS: ACETAMINOPHEN 325 MG TABLET 650 MG PO ×2 (16:45→23:16)
--- OUTSIDE RECORDS SUMMARY | 2024-12-04 16:50 | XMS_ITS | CCD ---
Author Organization [facility] Care Team Providers Care Instrumentation And Controls Technician Name Role Phone James Benavidez Primary Care Provider [phone] JAMES BENAVIDEZ Primary Care Unavailable SHENRENATOEANISHAHAL Admitting Unavailable SHENRENATOE VITHAL Attending Unavailable AICHHOLZ, MCKAYLA Primary Care Unavailable AICHHOLZ, MCKAYLA Referring Unavailable AICHHOLZ, MCKAYLA J Primary Care Physician Tico, Stephanie Unavailable OLE RAMIREZ Attending Unavailable OLE RAMIREZ Consulting Unavailable AICHHOLZ, TURNING MACHINE OPERATOR HELPER MCKAYLA Primary Care Unavailable OLE RAMIREZ Admitting Unavailable ANTONY SHRESTHA Consulting Unavailable ALONDRA ., UMBERTO Admitting Unavailable ALONDRA ., UMBERTO Attending Unavailable AICHHOLZ, TURNING MACHINE OPERATOR HELPER MCKAYLA Primary Care Unavailable AFSANEH Loera, DR BOLANOS Consulting Unavailable MARYANNE POWER Consulting Unavailable GLENN KERR Consulting Unavailable YOMAIRA KERR Consulting Unavailable HATTIE GOFF Consulting Unavailable ALONDRA ., UMBERTO Consulting Unavailable TICO, STEPHANIE Attending Unavailable TICO, STEPHANIE Consulting Unavailable AICHHOLZ, TURNING MACHINE OPERATOR HELPER MCKAYLA Primary Care Unavailable TICO, STEPHANIE Admitting Unavailable ARAUZ ., DR DUMONT Admitting Unavailable AICHHOLZ, TURNING MACHINE OPERATOR HELPER MCKAYLA Primary Care Unavailable ARAUZ ., DR DUMONT Attending Unavailable ARAUZ ., DR DUMONT Consulting Unavailable CLOLIN HUERTAS Consulting Unavailable CECILIA KAUFMAN Admitting Unavailable CECILIA KAUFMAN Attending Unavailable AICHHOLZ, TURNING MACHINE OPERATOR HELPER MCKAYLA Primary Care Unavailable RAFAEL GONGORA Attending Unavailable RAFAEL GONGORA Admitting Unavailable AICHHOLZ, TURNING MACHINE OPERATOR HELPER MCKAYLA Primary Care Unavailable AICHHOLZ, TURNING MACHINE OPERATOR HELPER MCKAYLA Admitting Unavailable AICHHOLZ, TURNING MACHINE OPERATOR HELPER MCKAYLA Primary Care Unavailable AICHHOLZ, TURNING MACHINE OPERATOR HELPER MCKAYLA Attending Unavailable AICHHOLZ, TURNING MACHINE OPERATOR HELPER MCKAYLA Consulting Unavailable LAKSHMIPATHY ., NARENDRANATH Attending Anette vailable LAKSHMIPATHY ., NARENDRANATH Consulting Anette vailable LAKSHMIPATHY ., NARENDRANATH Admitting Anette vailable AICHHOLZ, TURNING MACHINE OPERATOR HELPER MCKAYLA Primary Care Unavailable VALENZUELA ., GIL Consulting Unavailable MORTENSEN ., DR CHAPARRO Aguillon Attending Unavailable MORTENSEN ., DR CHAPARRO Aguillon Admitting Unavailable AICHHOLZ, TURNING MACHINE OPERATOR HELPER MCKAYLA Primary Care Unavailable VALENZUELA ., GIL Consulting Unavailable MORTENSEN ., DR CHAPARRO Aguillon Admitting Unavailable AICHHOLZ, TURNING MACHINE OPERATOR HELPER MCKAYLA Primary Care Unavailable MORTENSEN ., DR CHAPARRO Aguillon Attending Unavailable HALKER ., SUBHASH Consulting Unavailable LAKSHMIPATHY ., NARENDRANATH Admitting Anette vailable LAKSHMIPATHY ., NARENDRANATH Attending Anette vailable AICHHOLZ, TURNING MACHINE OPERATOR HELPER MCKAYLA Primary Care Unavailable MORTENSEN ., DR CHAPARRO Aguillon Attending Unavailable MORTENSEN ., DR CHAPARRO Aguillon Admitting Unavailable VALENZUELA ., GIL Consulting Unavailable AICHHOLZ, TURNING MACHINE OPERATOR HELPER MCKAYLA Primary Care Unavailable VALENZUELA ., GIL Consulting Unavailable MORTENSEN ., DR CHAPARRO Aguillon Attending Unavailable MORTENSEN ., DR CHAPARRO Aguillon Admitting Unavailable AICHHOLZ, TURNING MACHINE OPERATOR HELPER MCKAYLA Primary Care Unavailable HATTIE BRODERICK Attending Unavailable HATTIE BRODERICK Admitting Unavailable AICHHOLZ, TURNING MACHINE OPERATOR HELPER MCKAYLA Primary Care Unavailable AICHHOLZ, TURNING MACHINE OPERATOR HELPER MCKAYLA Admitting Unavailable AICHHOLZ, TURNING MACHINE OPERATOR HELPER MCKAYLA Consulting Unavailable AICHHOLZ, TURNING MACHINE OPERATOR HELPER MCKAYLA Primary Care Unavailable AICHHOLZ, TURNING MACHINE OPERATOR HELPER MCKAYLA Attending Unavailable AICHHOLZ, TURNING MACHINE OPERATOR HELPER MCKAYLA Primary Care Unavailable MISC, DR LESLIE Admitting Unavailable MISC, DR LESLIE Attending Unavailable MISC, DR LESLIE Consulting Unavailable DIAB ., MARIANO Admitting Unavailable DIAB ., MARIANO Attending Unavailable DIAB ., MARIANO Consulting Unavailable AICHHOLZ, TURNING MACHINE OPERATOR HELPER MCKAYLA Primary Care Unavailable RICCO PICKARD Consulting Unavailable AICHHOLZ, TURNING MACHINE OPERATOR HELPER MCKAYLA Admitting Unavailable AICHHOLZ, TURNING MACHINE OPERATOR HELPER MCKAYLA Primary Care Unavailable AICHHOLZ, TURNING MACHINE OPERATOR HELPER MCKAYLA Attending Unavailable AICHHOLZ, TURNING MACHINE OPERATOR HELPER MCKAYLA Consulting Unavailable DR PATRICIA VELOZ Consulting Unavailable TAMLYN ., CECILIA Attending Unavailable BJORNLYN ., CECILIA Admitting Unavailable DR PATRICIA VELOZ Consulting Unavailable AICHHOLZ, TURNING MACHINE OPERATOR HELPER MCKAYLA Primary Care Unavailable TAMLYN ., CECILIA Consulting Unavailable FESTUS ., DR CHAPARRO Aguillon Attending Unavailable FESTUS ., DR CHAPARRO Aguillon Consulting Unavailable FESTUS ., DR CHAPARRO Aguillon Admitting Unavailable AICHHOLZ, TURNING MACHINE OPERATOR HELPER MCKAYLA Primary Care Unavailable HATTIE BRODERICK Attending Unavailable HATTIE BRODERICK Consulting Unavailable HATTIE BRODERICK Admitting Unavailable AICHHOLZ, TURNING MACHINE OPERATOR HELPER MCKAYLA Primary Care Unavailable HATTIE BAUTISTA Unavailable AICHHOLZ, SAYDA MCKAYLA Admitting Unavailable AICHHOLZ, TURNING MACHINE OPERATOR HELPER MCKAYLA Attending Unavailable AICHHOLZ, TURNING MACHINE OPERATOR HELPER MCKAYLA Consulting Unavailable AICHHOLZ, TURNING MACHINE OPERATOR HELPER MCKAYLA Primary Care Unavailable Brennan PHIPPS, Ty Primary Care Provider Brennan PHIPPS, Ty Primary Care Provider Aichholz VOLUNTEER SERVICES SUPERVISOR, Mckayla Unavailable Aichholz VOLUNTEER SERVICES SUPERVISOR, Cmkayla Unavailable Elbert ARAUZ Attending Unavailable SARAH VEGA [...] Medication Allergies] Propensity to adverse reactions (disorder) [facility] Repository Medications Current Medications Medication Drug Class(es) [...] Start Date: 02/06/22 Status: Ordered HYDROcodone-acet aminophen ([place]) 5-325 MG tablet 1 tablet 3 (three) times a day as needed for severe pain. Active take 1 tablet by vandana twice daily as needed [place] 5-325 MG 1 tablet as needed Orally [...] times weekly ergocalciferol (Vitamin D2) 1.25 MG (27168 UT) capsule Indications: Vitamin D deficiency, unspecified Take 1 capsule (1.25 mg) by mouth 2 (two) times a week 24 capsule 1 10/27/2024 01/19/2025 Active Start: 04-06-2024 End: 10-27-2024 take 1 capsule by mouth every week ergocalciferol (Vitamin D2) 1.25 MG (44989 UT) capsule Indications: Vitamin D deficiency, unspecified [...] complication, with long-term current use of insulin ([facility]) Chew 1 tablet (81 mg) Daily [...] Other fpc (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 therapy; Translations: [OTH LONGTERM CURRENT DRUG THERAPY] Onset: 12-05-2022 Episodic Other aftercare (1 source) long term care social worker (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; Translations: [STAKING ENGINEER CURRENT USE OF ASPIRIN] Onset: 12-05-2022 Episodic Other aftercare (3 sources) 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; Translations: [LONGTERM CURRENT USE OF INSULIN] Onset: 12-05-2022 Episodic Other aftercare (4 sources) Long-term current use of insulin; Translations: [longterm (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] 05-27-2024 Episodic Other aftercare (9 sources) Long-term current use of inhaled steroid; Translations: [longterm (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 inhaled steroids] Onset: 08-27-2024 [...] ocumentation in Social History. Unclassified (1 source) LONGTERM INJECT NONINSULN ANTIDIAB; Translations: [LONGTERM INJECT NONINSULN ANTIDIAB] Onset: 12-05-2022 Unclassified (3 [...] current management. LM on patient's VM. Normal [facility] Glucose (Bld) [Mass/Vol]Orde red By: Mica Sauceda on 10-08-2024 Glucose Blood, POC 97 mg/dL [facility] - Hematology and Cell countson 10-08-2024 HbA1c (Bld) [Mass fraction] 7.4 % [facility] No Panel InformationOrdered By: Mica Sauceda on 10-08-2024 [facility] TBH UA (CLEAN/CATCH) MICROSC OPIC IF INDICATEon 10-08-2024 BILIRUBIN URINE Negative NEGATIVE [facility] BLOOD URINE Negative NEGATIVE [facility] Clarity (U) CLEAR CLEAR [facility] Color (U) YELLOW YELLOW [facility] GLUCOSE URINE UA Negative NEGATIVE mg/dL [facility] Interpretation and review of laboratory results Abnormal [facility] Healthcare Ketones Ql (U) Negative NEGATIVE mg/dL [facility] Leukocyte esterase Test strip Ql (U) Negative NEGATIVE [facility] NITRITE URINE Negative NEGATIVE [facility] Healthcare pH (U) 5.5 [pH] 5.0 - 9.0 [facility] Protein (U) [Mass/Vol] 30 mg/dL Abnormal NEG/TRACE NO AL [facility] SPECIFIC GRAVITY URINE >=1.030 Abnormal 1.005 - 1.025 [facility] URINE MICROSCOPIC INDICATED YES [facility] UROBILINOGEN URINE 1.0 EU/dL 0.2 - 1.0 EU/dL [facility] ALL CBC WITH AUTO DIFFon BASOPHILS ABSOLUTE AUTO 0.1 N [facility] Basophils/100 WBC (Bld) 0.5 % 0.2 - 2.0 % [facility] Eosinophils/100 WBC (Bld) 1.9 % 0.9 - 7.0 % [facility] Erythrocyte distribution width (RBC) [Ratio] 14.6 % 11.0 - 15.0 % [facility] Hematocrit (Bld) [Volume fraction] 50.9 % High 36.0 - 48.0 % [facility] Hemoglobin (Bld) [Mass/Vol] 16.1 g/dL High 12.0 - 16.0 g/dL [facility] IMMATURE GRANULOCYTES ABS AUTO 0.04 High [facility] Immature granulocytes/100 WBC (Bld) 0.3 % 0.0 - 0.5 % [facility] Interpretation and review of laboratory results Abnormal [facility] LYMPHOCYTES ABSOLUTE AUTO 3.2 [facility] Lymphocytes/100 WBC (Bld) 25.1 % 20.5 - 60.0 % [facility] MCH (RBC) [Entitic mass] 29.2 pg 26.7 - 34.0 pg [facility] MCHC (RBC) [Mass/Vol] 31.6 g/dL 29.9 - 35.2 g/dL [facility] MCV (RBC) [Entitic vol] 92.2 fL 81.0 - 99.0 fL [facility] MONOCYTES ABSOLUTE AUTO 0.7 N [facility] Monocytes/100 WBC (Bld) 5.2 % 1.7 - 12.0 % [facility] NEUTROPHILS ABSOLUTE AUTO 8.6 High [facility] Neutrophils/100 WBC (Bld) 67 % 43.0 - 75.0 % [facility] Platelet mean volume (Bld) [Entitic vol] 12.8 fL 9.5 - 13.5 fL [facility] TBH EO # 0.2 [facility] TB PLT 122 Low [facility] RBC 5.52 High [facility] TBH WBC 12.8 High [facility] Office Visiton 08-08-2024 Follow-up visit [id number] GilbertoMitzi Gilberto 1970 F Date Provider Department Center 08/08/2024 [id number]-[id number] BRIDGES Family History Problem Relation Age of Onset Heart attack Paternal Grandmother Family Status - Relation Status Age at Paternal Grandmother Level of Service:59008 MS OFFICE/OUTPATIENT ESTABLISHED MOD MDM 30 MIN Reason for Visit and Comments: Congestive Heart Failure [127] - Denies chest pain, SOB, and palpitations. Hypertension [055622] Hyperlipidemia [182] LVH [Other] Edema [[id number]] - Denies worsening edema. She sees wound care for RLE ulcer. She was seeing the vein specialists here in town but they are moving to [place] in a few weeks. Normal [facility] Glucose (Bld) [Mass/Vol]Orde red By: Mica Sauceda on 05-27-2024 Glucose Blood, POC 158 mg/dL [facility] - Hematology and Cell countson 05-27-2024 HbA1c (Bld) [Mass fraction] 9.2 % [facility] No Panel InformationOrdered By: Miac Sauceda on 05-27-2024 [facility] CREATININEon 05-12-2024 Creatinine [Mass/Vol] 0.92 mg/dL 0.55 - 1.02 mg/dL [facility] GFR/1.73 sq M.predicted CKD-EPI (S/P/Bld) [Vol rate/Area] >60 >=60 mL/min/1.73m 2 [facility] EGFR-NON AF CITIZEN [place] >60 >=60 mL/min/1.73m 2 [facility] Office Visiton 11-14-2023 Follow-up visit [id number] Mitzi Macias 1970 F Date Provider Department Center 11/14/2023 BHARAT NICOLE [facility] Family History Problem Relation Age of Onset Heart attack Paternal Grandmother Family Status - Relation Status Age at Paternal Grandmother Level of Service:62562 MS OFFICE/OUTPATIENT NEW LOW MDM 30 MINUTES Normal [facility] CBC AUTO DIFFon 12-06-2022 BASO # 0.0 103/ul Normal 0.0-0.1 [facility] Comment on above: Performed By: #### C BC #### [facility] [address] [address] [address] Ashlie Hills Basophils/100 WBC (Bld) 0.1 % Critically low 0.2-2.0 [facility] Comment on above: Performed By: #### C BC #### [facility] [address] [address] [address] Ashlie Hills EO # 0.0 103/ul Normal 0.0-0.7 [facility] Comment on above: Performed By: #### C BC #### [facility] [address] [place] [address] Dr. Ashlie Hills Eosinophils/100 WBC (Bld) 0.0 % Critically low 0.9-7.0 [facility] Comment on above: Performed By: #### C BC #### [facility] [address] [place] [address] Dr. Ashlie Hills Erythrocyte distribution width (RBC) [Ratio] 14.9 % Normal 11.0-15.0 [facility] Comment on above: Performed By: #### C BC #### [facility] [address] [place] [address] Dr. Ashlie Hills Hematocrit (Bld) [Volume fraction] 46.2 % Normal 36.0-48.0 [facility] Comment on above: Performed By: #### C BC #### [facility] [address] [place] [address] Dr. Ashlie Hills Hemoglobin (Bld) [Mass/Vol] 14.7 g/dL Normal 12.0-16.0 [facility] Comment on above: Performed By: #### C BC #### [facility] [address] [place] [address] Dr. Ashlie Hills IG # 0.06 10e3/ul Critically high 0.00-0.03 [facility] Comment on above: Performed By: #### C BC #### [facility] [address] [place] [address] Dr. Ashlie Hills IG % 0.4 % Normal 0.0-0.5 [facility] Comment on above: Performed By: #### C BC #### [facility] [address] [place] [address] Dr. Ashlie Hills LYMPH # 1.3 103/ul Normal 1.2-3.8 [facility] Comment on above: Performed By: #### C BC #### [facility] [address] [place] [address] Dr. Ashlie Hills Lymphocytes/100 WBC (Bld) 9.4 % Critically low 20.5-60.0 [facility] Comment on above: Performed By: #### C BC #### [facility] [address] [place] [address] Dr. Ashlie Hills MANUAL DIFF REQ NO Normal [facility] Comment on above: Performed By: #### C BC #### [facility] [address] [place] [address] Dr. Ashlie Hills MCH (RBC) [Entitic mass] 28.4 pg Normal 26.7-34.0 [facility] Comment on above: Performed By: #### C BC #### [facility] [address] [place] [address] Dr. Ashlie Hills MCHC (RBC) [Mass/Vol] 31.8 g/dL Normal 29.9-35.2 [facility] Comment on above: Performed By: #### C BC #### [facility] [address] [place] [address] Dr. Ashlie Hills MCV (RBC) [Entitic vol] 89.4 fL Normal 81.0-99.0 [facility] Comment on above: Performed By: #### C BC #### [facility] [address] [place] [address] Dr. Ashlie Hills MONO # 0.5 103/ul Normal 0.3-0.8 [facility] Comment on above: Performed By: #### C BC #### [facility] [address] [place] [address] Dr. Ashlie Hills Monocytes/100 WBC (Bld) 3.4 % Normal 1.7-12.0 [facility] Comment on above: Performed By: #### C BC #### [facility] [address] [place] [address] Dr. Ashlie Hills NEUT # 11.8 103/ul Critically high 1.4-6.5 [facility] Comment on above: Performed By: #### C BC #### [facility] [address] [place] [address] Dr. Ashlie Hills Neutrophils/100 WBC (Bld) 86.7 % Critically high 43.0-75.0 [facility] Comment on above: Performed By: #### C BC #### [facility] [address] [address] [address] Ashlie Hills Platelet mean volume (Bld) [Entitic vol] 12.6 fL Normal 9.5-13.5 [facility] Comment on above: Performed By: #### C BC #### [facility] [address] [address] [address] Ashlie Hills PLT 133 103/ul Critically low 150-450 [facility] Comment on above: Performed By: #### C BC #### [facility] [address] [address] [address] Ashlie Hills RBC 5.17 106/ul Normal 4.20-5.40 [facility] Comment on above: Performed By: #### C BC #### [facility] [address] [place] [address] Dr. Ashlie Hills WBC 13.6 103/ul Critically high 4.0-11.0 [facility] Comment on above: Performed By: #### C BC #### [facility] [address] [place] [address] Dr. Ashlie Hills MAGNESIUMon 12-06-2022 Magnesium [Mass/Vol] 2.2 mg/dL Normal 1.8-2.4 [facility] Comment on above: Performed By: #### I NFLUAB #### [facility] [address] [place] [address] Dr. Ashlie Hills POINT OF CARE GLUCOSEon 11-08 Glucose [Mass/Vol] 340 mg/dL Critically high 74-106 [facility] Comment on above: Performed By: #### P OCGLUC #### [facility] [address] [place] [address] Dr. Ashlie Hills Glucose [Mass/Vol] 276 mg/dL Critically high 74-106 [facility] Comment on above: Performed By: #### C BC #### [facility] [address] [place] [address] Dr. Ashlie Hills Glucose [Mass/Vol] 333 mg/dL Critically high 74-106 [facility] Comment on above: Performed By: #### C BC #### [facility] [address] [address] [address] Ashlie Hills PROF CHEM 8 (BAS METB)on Anion gap [Moles/Vol] 10.9 mmol/L Normal [facility] Comment on above: Performed By: #### I NFLUAB #### [facility] [address] [place] [address] Dr. Ashlie Hills Calcium [Mass/Vol] 9.3 mg/dL Normal 8.5-10.1 [facility] Comment on above: Performed By: #### I NFLUAB #### [facility] [address] [place] [address] Dr. Ashlie Hills Chloride [Moles/Vol] 103 mmol/L Normal 98-107 [facility] Comment on above: Performed By: #### I NFLUAB #### [facility] [address] [place] [address] Dr. Ashlie Hills CO2 [Moles/Vol] 31.2 mmol/L Normal 21.0-32.0 [facility] Comment on above: Performed By: #### I NFLUAB #### [facility] [address] [place] [address] Dr. Ashlie Hills Creatinine [Mass/Vol] 0.96 mg/dL Normal 0.55-1.02 [facility] Comment on above: Performed By: #### I NFLUAB #### [facility] [address] [place] [address] Dr. Ashlie Hills EGFR-AF CITIZEN [place] >60 Normal >=60 [facility] Comment on above: Performed By: #### I NFLUAB #### [facility] [address] [place] [address] Dr. Ashlie Hills EGFR-NON AF CITIZEN [place] >60 Normal >=60 [facility] Comment on above: Performed By: #### I NFLUAB #### [facility] [address] [place] [address] Dr. Ashlie Hills Glucose [Mass/Vol] 288 mg/dL Critically high 74-106 [facility] Comment on above: Performed By: #### I NFLUAB #### [facility] [address] [address] [address] Ashlie Hills Potassium [Moles/Vol] 5.1 mmol/L Normal 3.5-5.1 [facility] Comment on above: Performed By: #### I NFLUAB #### [facility] [address] [place] [address] Dr. Ashlie Hills Sodium [Moles/Vol] 140 mmol/L Normal 136-145 [facility] Comment on above: Performed By: #### I NFLUAB #### [facility] [address] [place] [address] Dr. Ashlie Hills Urea nitrogen [Mass/Vol] 30.0 mg/dL Critically high 7.0-18.0 [facility] Comment on above: Performed By: #### I NFLUAB #### [facility] [address] [place] [address] Dr. Ashlie Hills Urea nitrogen/Creatinine [Mass ratio] 31.2 mg/mg Normal [facility] Comment on above: Performed By: #### I NFLUAB #### [facility] [address] [place] [address] Dr. Ashlie Hills CBC AUTO DIFFon 12-05-2022 BASO # 0.0 103/ul Normal 0.0-0.1 [facility] Comment on above: Performed By: #### C BC #### [facility] [address] [place] [address] Dr. Ashlie Hills Basophils/100 WBC (Bld) 0.4 % Normal 0.2-2.0 [facility] Comment on above: Performed By: #### C BC #### [facility] [address] [place] [address] Dr. Ashlie Hills EO # 0.0 103/ul Normal 0.0-0.7 [facility] Comment on above: Performed By: #### C BC #### [facility] [address] [place] [address] Dr. Ashlie Hills Eosinophils/100 WBC (Bld) 0.0 % Critically low 0.9-7.0 [facility] Comment on above: Performed By: #### C BC #### [facility] [address] [address] [address] Ashlie Hills Erythrocyte distribution width (RBC) [Ratio] 14.8 % Normal 11.0-15.0 [facility] Comment on above: Performed By: #### C BC #### [facility] [address] [address] [address] Ashlie Hills Hematocrit (Bld) [Volume fraction] 49.9 % Critically high 36.0-48.0 [facility] Comment on above: Performed By: #### C BC #### [facility] [address] [place] [address] Dr. Ashlie Hills Hemoglobin (Bld) [Mass/Vol] 15.7 g/dL Normal 12.0-16.0 [facility] Comment on above: Performed By: #### C BC #### [facility] [address] [place] [address] Dr. Ashlie Hills IG # 0.04 10e3/ul Critically high 0.00-0.03 [facility] Comment on above: Performed By: #### C BC #### [facility] [address] [place] [address] Dr. Ashlie Hills IG % 0.5 % Normal 0.0-0.5 [facility] Comment on above: Performed By: #### C BC #### [facility] [address] [place] [address] Dr. Ashlie Hills LYMPH # 1.1 103/ul Critically low 1.2-3.8 [facility] Comment on above: Performed By: #### C BC #### [facility] [address] [place] [address] Dr. Ashlie Hills Lymphocytes/100 WBC (Bld) 12.7 % Critically low 20.5-60.0 [facility] Comment on above: Performed By: #### C BC #### [facility] [address] [place] [address] Dr. Ashlie Hills MANUAL DIFF REQ NO Normal [facility] Comment on above: Performed By: #### C BC #### [facility] [address] [address] [address] Ashlie Hills MCH (RBC) [Entitic mass] 28.1 pg Normal 26.7-34.0 [facility] Comment on above: Performed By: #### C BC #### [facility] [address] [address] [address] Ashlie Hills MCHC (RBC) [Mass/Vol] 31.5 g/dL Normal 29.9-35.2 [facility] Comment on above: Performed By: #### C BC #### [facility] [address] [address] [address] Ashlie Hills MCV (RBC) [Entitic vol] 89.3 fL Normal 81.0-99.0 [facility] Comment on above: Performed By: #### C BC #### [facility] [address] [place] [address] Dr. Ashlie Hills MONO # 0.1 103/ul Critically low 0.3-0.8 [facility] Comment on above: Performed By: #### C BC #### [facility] [address] [address] [address] Ashlie Hills Monocytes/100 WBC (Bld) 1.3 % Critically low 1.7-12.0 [facility] Comment on above: Performed By: #### C BC #### [facility] [address] [address] [address] Ashlie Hills NEUT # 7.2 103/ul Critically high 1.4-6.5 [facility] Comment on above: Performed By: #### C BC #### [facility] [address] [place] [address] Dr. Ashlie Hills Neutrophils/100 WBC (Bld) 85.1 % Critically high 43.0-75.0 [facility] Comment on above: Performed By: #### C BC #### [facility] [address] [address] [address] Ashlie Hills Platelet mean volume (Bld) [Entitic vol] 12.2 fL Normal 9.5-13.5 [facility] Comment on above: Performed By: #### C BC #### [facility] [address] [place], [place] [address] Dr. Ashlie Hills PLT 116 103/ul Critically low 150-[address] [facility] Comment on above: Performed By: #### C BC #### [facility] [address] [place], [place] [address] Dr. Ashlie Hills RBC 5.59 106/ul Critically high 4.20-5.40 [facility] Comment on above: Performed By: #### C BC #### [facility] [address] [place], [place] [address] [address]. Ashlie Hills WBC 8.5 103/ul Normal 4.0-11.0 [facility] Comment on above: Performed By: #### C BC #### [facility] [address] [place], [place] [address] Dr. Ashlie Hills CTA CHEST WO W [...] by: HATTIE GOFF Date: 2022-12-05 01:52 Normal [facility] MAGNESIUMon 12-05-2022 Magnesium [Mass/Vol] 2.1 mg/dL Normal 1.8-2.4 [facility] Comment on above: Performed By: #### P OCGLUC #### [facility] [address] [address] [address] Ashlie Hills POINT OF CARE GLUCOSEon 11-08 Glucose [Mass/Vol] 293 mg/dL Critically high [facility] Comment on above: Performed By: #### P OCGLUC #### [facility] [address] [address] [address] Ashlie Hills Glucose [Mass/Vol] 269 mg/dL Critically high [facility] Comment on above: Performed By: #### P OCGLUC #### [facility] [address] [address] [address] Ashlie Hills Glucose [Mass/Vol] 223 mg/dL Critically high [address] [place] [address] Comment on above: Performed By: #### C VDAGS #### [facility] [address] [address] [address] Ashlie Hills PROF CHEM 8 (BAS METB)on Anion gap [Moles/Vol] 11.6 mmol/L Normal [facility] Comment on above: Performed By: #### P OCGLUC #### [facility] [address] [address] [address] Ashlie Hills Calcium [Mass/Vol] 9.2 mg/dL Normal 8.5-10.1 [facility] Comment on above: Performed By: #### P OCGLUC #### [facility] [address] [address] [address] Ashlie Hills Chloride [Moles/Vol] 102 mmol/L Normal 98-107 [facility] Comment on above: Performed By: #### P OCGLUC #### [facility] [address] [address] [address] Ashlie Hills CO2 [Moles/Vol] 28.7 mmol/L Normal 21.0-32.0 [facility] Comment on above: Performed By: #### P OCGLUC #### [facility] [address] [address] [address] Ashlie Hills Creatinine [Mass/Vol] 1.04 mg/dL Critically high 0.55-1.02 [facility] Comment on above: Performed By: #### P OCGLUC #### [facility] [address] [address] [address] Ashlie Hills EGFR-AF CITIZEN [place] >60 Normal >=60 [facility] Comment on above: Performed By: #### P OCGLUC #### [facility] [address] [address] [address] Ashlie Hills EGFR-NON AF CITIZEN OF [place] 56 mL/min/1.73m2 Critically low >=60 [facility] Comment on above: Performed By: #### P OCGLUC #### [facility] [address] [address] [address] Ashlie Hills Glucose [Mass/Vol] 231 mg/dL Critically high 74-106 [facility] Comment on above: Performed By: #### P OCGLUC #### [facility] [address] [address] [address] Ashlie Hills Potassium [Moles/Vol] 4.3 mmol/L Normal 3.5-5.1 [facility] Comment on above: Performed By: #### P OCGLUC #### [facility] [address] [address] [address] Ashlie Hills Sodium [Moles/Vol] 138 mmol/L Normal 136-145 [facility] Comment on above: Performed By: #### P OCGLUC #### [facility] [address] [address] [address] Ashlie Hills Urea nitrogen [Mass/Vol] 17.0 mg/dL Normal 7.0-18.0 [facility] Comment on above: Performed By: #### P OCGLUC #### [facility] [address] [place] [address] Dr. Ashlie Hills Urea nitrogen/Creatinine [Mass ratio] 16.3 mg/mg Normal [facility] Comment on above: Performed By: #### P OCGLUC #### [facility] [address] [place] [address] Dr. Ashlie Hills RESPIRATORY PANEL PLUSon Adenovirus Not detected Normal NOT DETECTED [facility] Comment on above: Performed By: #### C VDAGS #### [facility] [address] [place] [address] Dr. Ashlie Hills B. Parapertusis Not detected Normal NOT DETECTED [facility] Comment on above: Performed By: #### C VDAGS #### [facility] [address] [place] [address] Dr. Ashlie hSaffer. Pertussis Not detected Normal NOT DETECTED [facility] Comment on above: Performed By: #### C VDAGS #### [facility] [address] [place] [address] Dr. Ashlie Hills Chlamydia Pneumoniae Not detected Normal NOT DETECTED [facility] Comment on above: Performed By: #### C VDAGS #### [facility] [address] [place] [address] Dr. Ashlie Hills Coronavirus 229E Not detected Normal NOT DETECTED [facility] Comment on above: Performed By: #### C VDAGS #### [facility] [address] [place] [address] Dr. Ashlie Hills Coronavirus HKU1 Not detected Normal NOT DETECTED [facility] Comment on above: Performed By: #### C VDAGS #### [facility] [address] [place] [address] Dr. Ashlie Hills Coronavirus NL63 Not detected Normal NOT DETECTED [facility] Comment on above: Performed By: #### C VDAGS #### [facility] [address] [place] [address] Dr. Ashlie Hills Coronavirus OC43 Not detected Normal NOT DETECTED [facility] Comment on above: Performed By: #### C VDAGS #### [facility] [address] [address] [address] Ashlie Hills Influenza A H1 Not detected Normal NOT DETECTED [facility] Comment on above: Performed By: #### C VDAGS #### [facility] [address] [address] [address] Ashlie Hills Influenza A H1 2009 Not detected Normal NOT DETECTED [facility] Comment on above: Performed By: #### C VDAGS #### [facility] [address] [address] [address] Ashlie Hills Influenza A H3 Not detected Normal NOT DETECTED [facility] Comment on above: Performed By: #### C VDAGS #### [facility] [address] [place] [address] Dr. Ashlie Hills Influenza B Not detected Normal NOT DETECTED [facility] Comment on above: Performed By: #### C VDAGS #### [facility] [address] [place] [address] Dr. Ashlie Hills Metapneumovirus Not detected Normal NOT DETECTED [facility] Comment on above: Performed By: #### C VDAGS #### [facility] [address] [place] [address] Dr. Ashlie Hills Mycoplas. Pneumoniae Not detected Normal NOT DETECTED [facility] Comment on above: Performed By: #### C VDAGS #### [facility] [address] [place] [address] Dr. Ashlie Hills Parainfluenza 1 Not detected Normal NOT DETECTED [facility] Comment on above: Performed By: #### C VDAGS #### [facility] [address] [address] [address] Ashlie Hills Parainfluenza 2 Not detected Normal NOT DETECTED [facility] Comment on above: Performed By: #### C VDAGS #### [facility] [address] [place] [address] Dr. Ashlie Hills Parainfluenza 3 Detected Abnormal NOT DETECTED [facility] Comment on above: Performed By: #### C VDAGS #### [facility] [address] [place] [address] Dr. Ashlie Hills Parainfluenza 4 Not detected Normal NOT DETECTED [facility] Comment on above: Performed By: #### C VDAGS #### [facility] [address] [place] [address] Dr. Ashlie Hills Rhino/Enterovirus Not detected Normal NOT DETECTED [facility] Comment on above: Performed By: #### C VDAGS #### [facility] [address] [place] [address] Dr. Ashlie Hills RP2 Header 1 RESPIRATORY PANEL: VIRUSES Normal [facility] Comment on above: Performed By: #### C VDAGS #### [facility] [address] [place] [address] Dr. Ashlie Hills RP2 Header 2 RESPIRATORY PANEL: BACTERIA Normal [facility] Comment on above: Performed By: #### C VDAGS #### [facility] [address] [place] [address] Dr. Ashlie Hills RSV Not detected Normal NOT DETECTED [facility] Comment on above: Performed By: #### C VDAGS #### [facility] [address] [place] [address] Dr. Ashlie Hills SARS-CoV-2 (COVID-19) RNA MADDY+probe Ql (Unsp spec) Not detected Normal NOT DETECTED [facility] Comment on above: Performed By: #### C VDAGS #### [facility] [address] [place] [address] Dr. Ashlie Hills XR CHEST 1 Von [...] by: MARYANNE POWER Date: 2022-12-04 22:23 Normal [facility] BLOOD GASES BTYon 12-04-2022 02 MODE ROOM AIR Normal [facility] Comment on above: Performed By: #### C BC #### [facility] [address] [place] [address] Dr. Ashlie Hills ALLENS TEST Positive [facility] Comment on above: Performed By: #### C BC #### [facility] [address] [place] [address] Dr. Ashlie Hills Base excess Calc (Bld) [Moles/Vol] 5.4 mmol/L Critically high -2.0-2.0 [facility] Comment on above: Performed By: #### C BC #### [facility] [address] [address] [address] Ashlie Hills BIPAP PRESSURE [facility] Comment on above: Performed By: #### C BC #### [facility] [address] [place] [address] Dr. Ashlie Hills CPAP [facility] Comment on above: Performed By: #### C BC #### [facility] [address] [place] [address] Dr. Ashlie Hills FIO2 [facility] Comment on above: Performed By: #### C BC #### [facility] [address] [place] [address] Dr. Ashlie Hills HCO3 (Bld) [Moles/Vol] 30.8 mmol/L Critically high 22.0-26 .0 [facility] Comment on above: Performed By: #### C BC #### [facility] [address] [place] [address] Dr. Ashlie Hills LPM [facility] Comment on above: Performed By: #### C BC #### [facility] [address] [address] [address] Ashlie Hills MINUTE VOLUME Normal [facility] Comment on above: Performed By: #### C BC #### [facility] [address] [place] [address] Dr. Ashlie Hills Oxygen (Bld) [Partial pressure] 46.3 mm[Hg] Critically low 80.0-100.0 [facility] Comment on above: Performed By: #### C BC #### [facility] [address] [address] [address] Ashlie Hills Oxygen saturation in Blood 83.9 % Critically low 95.0-100.0 [facility] Comment on above: Performed By: #### C BC #### [facility] [address] [address] [address] Ashlie Hills PCO2 54.2 mmHg Critically high 35.0-45.0 [facility] Comment on above: Performed By: #### C BC #### [facility] [address] [address] [address] Ashlie Hills [facility] Comment on above: Performed By: #### C BC #### [facility] [address] [place] [address] Dr. Ashlie Hills pH (Bld) 7.363 [pH] Normal 7.350-7.450 [facility] Comment on above: Performed By: #### C BC #### [facility] [address] [address] [address] Ashlie Hills [facility] Comment on above: Performed By: #### C BC #### [facility] [address] [address] [address] Ashlie Hills [facility] Comment on above: Performed By: #### C BC #### [facility] [address] [address] [address] Ashlie Hills PUNCTURE SITE LR [facility] Comment on above: Performed By: #### C BC #### [facility] [address] [address] [address] Ashlie Hills RATE [facility] Comment on above: Performed By: #### C BC #### [facility] [address] [place] [address] Dr. Ashlie Hills VENT MODE [facility] Comment on above: Performed By: #### C BC #### [facility] [address] [place] [address] Dr. Ashlie Hills [facility] Comment on above: Performed By: #### C BC #### [facility] [address] [place] [address] Dr. Ashlie Hills BNPon 12-04-2022 Natriuretic peptide B (Bld) [Mass/Vol] 76.0 pg/mL Normal <=900.0 [facility] Comment on above: Performed By: #### P OCGLUC #### [facility] [address] [place] [address] Dr. Ashlie Hills CBC AUTO DIFFon 12-04-2022 BASO # 0.1 103/ul Normal 0.0-0.1 [facility] Comment on above: Performed By: #### C BC #### [facility] [address] [place] [address] Dr. Ashlie Hills Basophils/100 WBC (Bld) 0.6 % Normal 0.2-2.0 [facility] Comment on above: Performed By: #### C BC #### [facility] [address] [place] [address] Dr. Ashlie Hills EO # 0.2 103/ul Normal 0.0-0.7 [facility] Comment on above: Performed By: #### C BC #### [facility] [address] [place] [address] Dr. Ashlie Hills Eosinophils/100 WBC (Bld) 1.9 % Normal 0.9-7.0 [facility] Comment on above: Performed By: #### C BC #### [facility] [address] [place] [address] Dr. Ashlie Hills Erythrocyte distribution width (RBC) [Ratio] 15.0 % Normal 11.0-15.0 [facility] Comment on above: Performed By: #### C BC #### [facility] [address] [place] [address] Dr. Ashlie Hills Hematocrit (Bld) [Volume fraction] 49.1 % Critically high 36.0-48.0 [facility] Comment on above: Performed By: #### C BC #### [facility] [address] [place] [address] Dr. Ashlie Hills Hemoglobin (Bld) [Mass/Vol] 15.6 g/dL Normal 12.0-16.0 [facility] Comment on above: Performed By: #### C BC #### [facility] [address] [place] [address] Dr. Ashlie Hills IG # 0.02 10e3/ul Normal 0.00-0.03 [facility] Comment on above: Performed By: #### C BC #### [facility] [address] [place] [address] Dr. Ashlie Hills IG % 0.2 % Normal 0.0-0.5 [facility] Comment on above: Performed By: #### C BC #### [facility] [address] [place] [address] Dr. Ashlie Hills LYMPH # 2.8 103/ul Normal 1.2-3.8 [facility] Comment on above: Performed By: #### C BC #### [facility] [address] [place] [address] Dr. Ashlie Hills Lymphocytes/100 WBC (Bld) 29.9 % Normal 20.5-60.0 [facility] Comment on above: Performed By: #### C BC #### [facility] [address] [place] [address] Dr. Ashlie Hills MANUAL DIFF REQ NO Normal [facility] Comment on above: Performed By: #### C BC #### [facility] [address] [place] [address] Dr. Ashlie Hills MCH (RBC) [Entitic mass] 28.5 pg Normal 26.7-34.0 [facility] Comment on above: Performed By: #### C BC #### [facility] [address] [place] [address] Dr. Ashlie Hills MCHC (RBC) [Mass/Vol] 31.8 g/dL Normal 29.9-35.2 [facility] Comment on above: Performed By: #### C BC #### [facility] [address] [place] [address] Dr. Ashlie Hills MCV (RBC) [Entitic vol] 89.8 fL Normal 81.0-99.0 [facility] Comment on above: Performed By: #### C BC #### [facility] [address] [place] [address] Dr. Ashlie Hills MONO # 1.0 103/ul Critically high 0.3-0.8 [facility] Comment on above: Performed By: #### C BC #### [facility] [address] [place] [address] Dr. Ashlie Hills Monocytes/100 WBC (Bld) 10.6 % Normal 1.7-12.0 [facility] Comment on above: Performed By: #### C BC #### [facility] [address] [place] [address] Dr. Ashlie Hills NEUT # 5.3 103/ul Normal 1.4-6.5 [facility] Comment on above: Performed By: #### C BC #### [facility] [address] [place] [address] Dr. Ashlie Hills Neutrophils/100 WBC (Bld) 56.8 % Normal 43.0-75.0 [facility] Comment on above: Performed By: #### C BC #### [facility] [address] [place] [address] Dr. Ashlie Hills Platelet mean volume (Bld) [Entitic vol] 12.5 fL Normal 9.5-13.5 [facility] Comment on above: Performed By: #### C BC #### [facility] [address] [place] [address] Dr. Ashlie Hills PLT 109 103/ul Critically low 150-450 [facility] Comment on above: Performed By: #### C BC #### [facility] [address] [place] [address] Dr. Ashlie Hills RBC 5.47 106/ul Critically high 4.20-5.40 [facility] Comment on above: Performed By: #### C BC #### [facility] [address] [place] [address] Dr. Ashlie Hills WBC 9.4 103/ul Normal 4.0-11.0 [facility] Comment on above: Performed By: #### C BC #### [facility] [address] [address] [address] Ashlie Hills PROF 14(COMP METB)on 023 Albumin [Mass/Vol] 2.9 g/dL Critically low 3.4-5.0 [facility] Comment on above: Performed By: #### C BC #### [facility] [address] [place] [address] Dr. Ashlie Hills Albumin/Globulin [Mass ratio] 0.6 {ratio} Normal [facility] Comment on above: Performed By: #### C BC #### [facility] [address] [place] [address] Dr. Ashlie Hills ALP [Catalytic activity/Vol] 64 U/L Normal 46-116 [facility] Comment on above: Performed By: #### C BC #### [facility] [address] [place] [address] Dr. Ashlie Hills ALT [Catalytic activity/Vol] 16 U/L Normal 14-59 [facility] Comment on above: Performed By: #### C BC #### [facility] [address] [place] [address] Dr. Ashlie Hills Anion gap [Moles/Vol] 9.6 mmol/L Normal [facility] Comment on above: Performed By: #### C BC #### [facility] [address] [place] [address] Dr. Ashlie Hills AST [Catalytic activity/Vol] 16 U/L Normal 15-37 [facility] Comment on above: Performed By: #### C BC #### [facility] [address] [place] [address] Dr. Ashlie Hills Bilirubin [Mass/Vol] 0.5 mg/dL Normal 0.2-1.0 [facility] Comment on above: Performed By: #### C BC #### [facility] [address] [place] [address] Dr. Ashlie Hills Calcium [Mass/Vol] 8.7 mg/dL Normal 8.5-10.1 [facility] Comment on above: Performed By: #### C BC #### [facility] [address] [place] [address] Dr. Ashlie Hills Chloride [Moles/Vol] 103 mmol/L Normal 98-107 [facility] Comment on above: Performed By: #### C BC #### [facility] [address] [address] [address] Ashlie Hills CO2 [Moles/Vol] 30.7 mmol/L Normal 21.0-32.0 [facility] Comment on above: Performed By: #### C BC #### [facility] [address] [place] [address] Dr. Ashlie Hills Creatinine [Mass/Vol] 0.96 mg/dL Normal 0.55-1.02 [facility] Comment on above: Performed By: #### C BC #### [facility] [address] [place] [address] Dr. Ashlie Hilsl EGFR-AF CITIZEN [place] >60 Normal >=60 [facility] Comment on above: Performed By: #### C BC #### [facility] [address] [place] [address] Dr. Ashlie Hlils EGFR-NON AF CITIZEN [place] >60 Normal >=60 [facility] Comment on above: Performed By: #### C BC #### [facility] [address] [place] [address] Dr. Ashlie Hills Globulin (S) [Mass/Vol] 4.7 g/dL Normal [facility] Comment on above: Performed By: #### C BC #### [facility] [address] [place] [address] Dr. Ashlie Hills Glucose [Mass/Vol] 170 mg/dL Critically high 74-106 [facility] Comment on above: Performed By: #### C BC #### [facility] [address] [place] [address] Dr. Ashlie Hills Potassium [Moles/Vol] 4.3 mmol/L Normal 3.5-5.1 [facility] Comment on above: Performed By: #### C BC #### [facility] [address] [place] [address] Dr. Ashlie Hills Protein [Mass/Vol] 7.6 g/dL Normal 6.4-8.2 [facility] Comment on above: Performed By: #### C BC #### [facility] [address] [place] [address] Dr. Ashlie Hills Sodium [Moles/Vol] 139 mmol/L Normal 136-145 [facility] Comment on above: Performed By: #### C BC #### [facility] [address] [place] [address] Dr. Ashlie Hills Urea nitrogen [Mass/Vol] 16.0 mg/dL Normal 7.0-18.0 [facility] Comment on above: Performed By: #### C BC #### [facility] [address] [place] [address] Dr. Ashlie Hills Urea nitrogen/Creatinine [Mass ratio] 16.7 mg/mg Normal [facility] Comment on above: Performed By: #### C BC #### [facility] [address] [place] [address] Dr. Ashlie Hills SYMPTOMATIC COVID-19 ANTIGEN on 12-04-2022 EUA Statement SEE BELOW Normal [facility] Comment on above: Result Comment: This test [...] sooner. Performed By: #### C VDAGS #### [facility] [address] [place] [address] Dr. Ashlie Hills SARS-CoV-2 (COVID-19) RNA MADDY+probe Ql (Unsp spec) Negative Normal NEGATIVE [facility] Comment on above: Performed By: #### C VDAGS #### [facility] [address] [place] [address] Dr. Ashlie Hills TROPONIN, HIGH SENSITIVITYon 12-04-2022 HSTROP 8.9 pg/mL Normal 4.0-51.3 [facility] Comment on above: Result Comment: CUT- OFF POINTS HAVE BEEN ESTABLISHED BASED ON THE FOURTH UNIVERSAL DEFINITIONS OF MYOCARDIAL INFARCTION. THE UPPER REFERENCE LIMIT (URL) OF TROPONIN, DEFINED THE 99TH PERCENTILE OF cTnI DISTRIBUTION IN A REFERENCE POPULATION, HAS BEEN CONFIRMED THE DECISION THRESHOLD FOR PA DIAGNOSIS. Performed By: #### P OCGLUC #### [facility] [address] [place] [address] Dr. Ashlie Hills MICROALBUMIN, RAND URon 11-06 mALB 35.8 mg/dL Critically high <=30.0 [facility] Comment on above: Performed By: #### C VDAGS #### [facility] [address] [place] [address] Dr. Ashlie Hills UA RANDOM W/MICROSCOPICon BACTERIA NONE SEEN Normal NONE SEEN [facility] Comment on above: Performed By: #### C VDAGS #### [facility] [address] [place] [address] Dr. Ashlie Hills Bilirubin Ql (U) Negative Normal NEGATIVE [facility] Comment on above: Performed By: #### C VDAGS #### [facility] [address] [place] [address] Dr. Ashlie Hills CAST SEEN Abnormal NONE SEEN [facility] Comment on above: Performed By: #### C VDAGS #### [facility] [address] [place] [address] Dr. Ashlie Hills Clarity (U) CLEAR Normal CLEAR [facility] Comment on above: Performed By: #### C VDAGS #### [facility] [address] [place] [address] Dr. Ashlie Hills Color (U) YELLOW Normal YELLOW [facility] Comment on above: Performed By: #### C VDAGS #### [facility] [address] [place] [address] Dr. Ashlie Hills Crystals LM Nom (Urine sed) NONE SEEN Normal NONE SEEN [facility] Comment on above: Performed By: #### C VDAGS #### [facility] [address] [place] [address] Dr. Ashlie Hills Epithelial cells LM Ql (Urine sed) MODERATE Abnormal NONE SEEN /RARE [facility] Comment on above: Performed By: #### C VDAGS #### [facility] [address] [place] [address] Dr. Ashlie Hills Glucose Ql (U) Negative Normal NEGATIVE [facility] Comment on above: Performed By: #### C VDAGS #### [facility] [address] [place] [address] Dr. Ashlie Hills Hemoglobin Ql (U) TRACE-INTACT Abnormal NEGATIVE [facility] Comment on above: Performed By: #### C VDAGS #### [facility] [address] [place] [address] Dr. Ashlie Hills Ketones Ql (U) Negative Normal NEGATIVE [facility] Comment on above: Performed By: #### C VDAGS #### [facility] [address] [place] [address] Dr. Ashlie Hills LEUKOCYTES Negative Normal NEGATIVE [facility] Comment on above: Performed By: #### C VDAGS #### [facility] [address] [place] [address] Dr. Ashlie Hills MUCOUS NONE SEEN Normal NONE SEEN [facility] Comment on above: Performed By: #### C VDAGS #### [facility] [address] [place] [address] Dr. Ashlie Hills Nitrite Ql (U) Negative Normal NEGATIVE [facility] Comment on above: Performed By: #### C VDAGS #### [facility] [address] [place] [address] Dr. Ashlie Hills pH (U) 5.0 [pH] Normal 5-9 [facility] Comment on above: Performed By: #### C VDAGS #### [facility] [address] [place] [address] Dr. Ashlie Hills RBC 0-2 Normal 0-2 [facility] Comment on above: Performed By: #### C VDAGS #### [facility] [address] [place] [address] Dr. Ashlie Hills SPEC GRAVITY 1.030 Abnormal 1.005-<=1.025 [facility] Comment on above: Performed By: #### C VDAGS #### [facility] [address] [place] [address] Dr. Ashlie Hills UA PROTEIN 100 mg/dl Abnormal NEGATIVE/ TRACE [facility] Comment on above: Performed By: #### C VDAGS #### [facility] [address] [place] [address] Dr. Ashlie Hills Urobilinogen Qn (U) 0.2 {Little'U}/dL Normal 0.2 - 1. 0 [facility] Comment on above: Performed By: #### C VDAGS #### [facility] [address] [place] [address] Dr. Ashlie Hills WBC NONE SEEN Normal NONE SEEN [facility] Comment on above: Performed By: #### C VDAGS #### [facility] [address] [place] [address] Dr. Ashlie Hills CBC AUTO DIFFon 11-22-2022 BASO # 0.0 103/ul Normal 0.0-0.1 [facility] Comment on above: Performed By: #### C BC #### [facility] [address] [place] [address] Dr. Ashlie Hills Basophils/100 WBC (Bld) 0.3 % Normal 0.2-2.0 [facility] Comment on above: Performed By: #### C BC #### [facility] [address] [place] [address] Dr. Ashlie Hills EO # 0.4 103/ul Normal 0.0-0.7 [facility] Comment on above: Performed By: #### C BC #### [facility] [address] [place] [address] Dr. Ashlie Hills Eosinophils/100 WBC (Bld) 3.0 % Normal 0.9-7.0 [facility] Comment on above: Performed By: #### C BC #### [facility] [address] [place] [address] Dr. Ashlie Hills Erythrocyte distribution width (RBC) [Ratio] 15.3 % Critically high 11.0-15.0 [facility] Comment on above: Performed By: #### C BC #### [facility] [address] [place] [address] Dr. Ashlie Hills Hematocrit (Bld) [Volume fraction] 52.4 % Critically high 36.0-48.0 [facility] Comment on above: Performed By: #### C BC #### [facility] [address] [place] [address] Dr. Ashlie Hills Hemoglobin (Bld) [Mass/Vol] 16.8 g/dL Critically high 12.0-16.0 [facility] Comment on above: Performed By: #### C BC #### [facility] [address] [place] [address] Dr. Ashlie Hills IG # 0.04 10e3/ul Critically high 0.00-0.03 [facility] Comment on above: Performed By: #### C BC #### [facility] [address] [place] [address] Dr. Ashlie Hills IG % 0.3 % Normal 0.0-0.5 [facility] Comment on above: Performed By: #### C BC #### [facility] [address] [place] [address] Dr. Ashlie Hills LYMPH # 4.5 103/ul Critically high 1.2-3.8 [facility] Comment on above: Performed By: #### C BC #### [facility] [address] [place] [address] Dr. Ashlie Hills Lymphocytes/100 WBC (Bld) 33.2 % Normal 20.5-60.0 [facility] Comment on above: Performed By: #### C BC #### [facility] [address] [place] [address] Dr. Ashlie Hills MANUAL DIFF REQ NO Normal [facility] Comment on above: Performed By: #### C BC #### [facility] [address] [place] [address] Dr. Ashlie Hills MCH (RBC) [Entitic mass] 28.0 pg Normal 26.7-34.0 [facility] Comment on above: Performed By: #### C BC #### [facility] [address] [place] [address] Dr. Ashlie Hills MCHC (RBC) [Mass/Vol] 32.1 g/dL Normal 29.9-35.2 [facility] Comment on above: Performed By: #### C BC #### [facility] [address] [place] [address] Dr. Ashlie Hills MCV (RBC) [Entitic vol] 87.3 fL Normal 81.0-99.0 [facility] Comment on above: Performed By: #### C BC #### [facility] [address] [place] [address] Dr. Ashlie Hills MONO # 0.8 103/ul Normal 0.3-0.8 [facility] Comment on above: Performed By: #### C BC #### [facility] [address] [place] [address] Dr. Ashlie Hills Monocytes/100 WBC (Bld) 5.7 % Normal 1.7-12.0 [facility] Comment on above: Performed By: #### C BC #### [facility] [address] [place] [address] Dr. Ashlie Hills NEUT # 7.8 103/ul Critically high 1.4-6.5 [facility] Comment on above: Performed By: #### C BC #### [facility] [address] [place] [address] Dr. Ashlie Hills Neutrophils/100 WBC (Bld) 57.5 % Normal 43.0-75.0 [facility] Comment on above: Performed By: #### C BC #### [facility] [address] [place] [address] Dr. Ashlie Hills Platelet mean volume (Bld) [Entitic vol] 12.0 fL Normal 9.5-13.5 [facility] Comment on above: Performed By: #### C BC #### [facility] [address] [place] [address] Dr. Ashlie Hills PLT 152 103/ul Normal 150-450 [facility] Comment on above: Performed By: #### C BC #### [facility] [address] [place] [address] Dr. Ashlie Hills RBC 6.00 106/ul Critically high 4.20-5.40 [facility] Comment on above: Performed By: #### C BC #### [facility] [address] [place] [address] Dr. Ashlie Hills WBC 13.6 103/ul Critically high 4.0-11.0 [facility] Comment on above: Performed By: #### C BC #### [facility] [address] [place] [address] Dr. Ashlie Hills LIPID PROFILEon 11-22-2022 CHOL-HDL RATIO NORM SEE BELOW Normal [facility] Comment on above: Result Comment: 3.3 - 4.4 LOW RISK 4.4 - 7.1 AVERAGE RISK 7.1 - 11.0 MODERATE RISK >11.0 HIGH RISK Performed By: #### C BC #### [facility] [address] [place] [address] Dr. Ashlie Hills Cholesterol [Mass/Vol] 139 mg/dL Normal <=200 [facility] Comment on above: Performed By: #### C BC #### [facility] [address] [place] [address] Dr. Ashlie Hills Cholesterol in HDL [Mass/Vol] 35 mg/dL Critically low 40-60 [facility] Comment on above: Performed By: #### C BC #### [facility] [address] [place] [address] Dr. Ashlie Hills Cholesterol in LDL [Mass/Vol] 67.4 mg/dL Normal [facility] Comment on above: Performed By: #### C BC #### [facility] [address] [place] [address] Dr. Ashlie Hills Cholesterol.total/Gianna sterol in HDL [Mass ratio] 4.0 {ratio} Normal [facility] Comment on above: Performed By: #### C BC #### [facility] [address] [address] [address] Ashlie Hills HDL NORMAL > or = 60 mg/dl - LOW CARDIOVASCULAR RISK <40 mg/dl - HIGH CARDIOVASCULAR RISK Normal [facility] Comment on above: Performed By: #### C BC #### [facility] [address] [address] [address] Ashlie Hills LDL CALC NORMAL SEE BELOW Normal [facility] Comment on above: Result Comment: <100 mg/dl OPTIMAL 100 - 129 mg/dl NEAR OR ABOVE OPTIMAL 130 - 159 mg/dl BORDERLINE HIGH 160 - 189 mg/dl HIGH >190 mg/dl VERY HIGH Performed By: #### C BC #### [facility] [address] [address] [address] Ashlie Hills Triglyceride [Mass/Vol] 183 mg/dL Critically high <=150 [facility] Comment on above: Performed By: #### C BC #### [facility] [address] [address] [address] Ashlie Hills VLDL CALC 36.6 mg/dL Normal [facility] Comment on above: Performed By: #### C BC #### [facility] [address] [address] [address] Ashlie Hills MG MAMM SCREEN 3D ALEX CADon 11-22-2022 MG MAMM SCREEN 3D ALEX CAD Patient: MITZI MACIAS Exam Date: 11/22/2022 : 1970 Gender:F Ordering : SAYDA [employer] Admission #: [id number] Family : Order #: [id number] CLICK HERE TO VIEW EXAM RADIOLOGY REPORT [...] unknown cancer at age 75. LOCATION: [facility] BREAST COMPOSITION: Almost entirely fatty. FINDINGS: DIAGNOSTIC [...] 11/22/2022 at 12:09 Normal [facility] PROF 14(COMP METB)on 023 Albumin [Mass/Vol] 3.0 g/dL Critically low 3.4-5.0 [facility] Comment on above: Performed By: #### C BC #### [facility] [address] [place] [address] Dr. Ashlie Hills Albumin/Globulin [Mass ratio] 0.6 {ratio} Normal [facility] Comment on above: Performed By: #### C BC #### [facility] [address] [address] [address] Ashlie Hills ALP [Catalytic activity/Vol] 68 U/L Normal 46-116 [facility] Comment on above: Performed By: #### C BC #### [facility] [address] [address] [address] Ashlie Hills ALT [Catalytic activity/Vol] 14 U/L Normal 14-59 [facility] Comment on above: Performed By: #### C BC #### [facility] [address] [address] [address] Ashlie Hills Anion gap [Moles/Vol] 12.1 mmol/L Normal [facility] Comment on above: Performed By: #### C BC #### [facility] [address] [address] [address] Ashlie Hills AST [Catalytic activity/Vol] 9 U/L Critically low 15-37 [facility] Comment on above: Performed By: #### C BC #### [facility] [address] [address] [address] Ashlie Hills Bilirubin [Mass/Vol] 0.4 mg/dL Normal 0.2-1.0 [facility] Comment on above: Performed By: #### C BC #### [facility] [address] [address] [address] Ashlie Hills Calcium [Mass/Vol] 9.0 mg/dL Normal 8.5-10.1 [facility] Comment on above: Performed By: #### C BC #### [facility] [address] [address] [address] Ashlie Hills Chloride [Moles/Vol] 105 mmol/L Normal 98-107 [facility] Comment on above: Performed By: #### C BC #### [facility] [address] [address] [address] Ashlie Hills CO2 [Moles/Vol] 30.7 mmol/L Normal 21.0-32.0 [facility] Comment on above: Performed By: #### C BC #### [facility] [address] [place] [address] Dr. Ashlie Hills Creatinine [Mass/Vol] 0.77 mg/dL Normal 0.55-1.02 [facility] Comment on above: Performed By: #### C BC #### [facility] [address] [address] [address] Ashlie Hills EGFR-AF CITIZEN [place] >60 Normal >=[address] [facility] Comment on above: Performed By: #### C BC #### [facility] [id number] [address] Ashlie Hills EGFR-NON AF CITIZEN OF [place] >60 Normal >=60 [facility] Comment on above: Performed By: #### C BC #### [facility] [address] [address] [address] Ashlie Hills Globulin (S) [Mass/Vol] 4.8 g/dL Normal [facility] Comment on above: Performed By: #### C BC #### [facility] [address] [place] [address] Dr. Ashlie Hills Glucose [Mass/Vol] 162 mg/dL Critically high 74-106 [facility] Comment on above: Performed By: #### C BC #### [facility] [address] [place] [address] Dr. Ashlie Hills Potassium [Moles/Vol] 3.8 mmol/L Normal 3.5-5.1 [facility] Comment on above: Performed By: #### C BC #### [facility] [address] [place] [address] Dr. Ashlie Hills Protein [Mass/Vol] 7.8 g/dL Normal 6.4-8.2 [facility] Comment on above: Performed By: #### C BC #### [facility] [address] [place] [address] Dr. Ashlie Hills Sodium [Moles/Vol] 144 mmol/L Normal 136-145 [facility] Comment on above: Performed By: #### C BC #### [facility] [address] [place] [address] Dr. Ashlie Hills Urea nitrogen [Mass/Vol] 24.0 mg/dL Critically high 7.0-18.0 [facility] Comment on above: Performed By: #### C BC #### [facility] [address] [place] [address] Dr. Ashlie Hills Urea nitrogen/Creatinine [Mass ratio] 31.2 mg/mg Normal [facility] Comment on above: Performed By: #### C BC #### [facility] [address] [place] [address] Dr. Ashlie Hills CBC AUTO DIFFon 10-05-2022 BASO # 0.1 103/ul Normal 0.0-0.1 [facility] Comment on above: Performed By: #### C BC #### [facility] [address] [place], [place] [id number] Dr. Ashlie Hills Basophils/100 WBC (Bld) 0.6 % Normal 0.2-2.0 [facility] Comment on above: Performed By: #### C BC #### [facility] [address] [place] [address] Dr. Ashlie Hills EO # 0.3 103/ul Normal 0.0-0.7 [facility] Comment on above: Performed By: #### C BC #### [facility] [address] [place] [address] Dr. Ashlie Hills Eosinophils/100 WBC (Bld) 2.1 % Normal 0.9-7.0 [facility] Comment on above: Performed By: #### C BC #### [facility] [address] [place] [address] Dr. Ashlie Hills Erythrocyte distribution width (RBC) [Ratio] 15.9 % Critically high 11.0-15.0 [facility] Comment on above: Performed By: #### C BC #### [facility] [address] [place] [address] Dr. Ashlie Hills Hematocrit (Bld) [Volume fraction] 51.8 % Critically high 36.0-48.0 [facility] Comment on above: Performed By: #### C BC #### [facility] [address] [place] [address] Dr. Ashlie Hills Hemoglobin (Bld) [Mass/Vol] 16.6 g/dL Critically high 12.0-16.0 [facility] Comment on above: Performed By: #### C BC #### [facility] [address] [place] [address] Dr. Ashlie Hills IG # 0.03 10e3/ul Normal 0.00-0.03 [facility] Comment on above: Performed By: #### C BC #### [facility] [address] [place] [address] Dr. Ashlie Hills IG % 0.2 % Normal 0.0-0.5 [facility] Comment on above: Performed By: #### C BC #### [facility] [address] [address] [address] Ashlie Hills LYMPH # 3.9 103/ul Critically high 1.2-3.8 [facility] Comment on above: Performed By: #### C BC #### [facility] [address] [place] [address] Dr. Ashlie Hills Lymphocytes/100 WBC (Bld) 31.7 % Normal 20.5-60.0 [facility] Comment on above: Performed By: #### C BC #### [facility] [address] [place] [address] Dr. Ashlie Hills MANUAL DIFF REQ NO Normal [facility] Comment on above: Performed By: #### C BC #### [facility] [address] [place] [address] Dr. Ashlie Hills MCH (RBC) [Entitic mass] 27.9 pg Normal 26.7-34.0 [facility] Comment on above: Performed By: #### C BC #### [facility] [address] [place] [address] Dr. Ashlie Hills MCHC (RBC) [Mass/Vol] 32.0 g/dL Normal 29.9-35.2 [facility] Comment on above: Performed By: #### C BC #### [facility] [address] [place] [address] Dr. Ashlie Hills MCV (RBC) [Entitic vol] 87.1 fL Normal 81.0-99.0 [facility] Comment on above: Performed By: #### C BC #### [facility] [address] [place] [address] Dr. Ashlie Hills MONO # 0.7 103/ul Normal 0.3-0.8 [facility] Comment on above: Performed By: #### C BC #### [facility] [address] [place] [address] Dr. Ashlie Hills Monocytes/100 WBC (Bld) 5.8 % Normal 1.7-12.0 [facility] Comment on above: Performed By: #### C BC #### [facility] [address] [place] [address] Dr. Ashlie Hills NEUT # 7.3 103/ul Critically high 1.4-6.5 [facility] Comment on above: Performed By: #### C BC #### [facility] [address] [address] [address] Ashlie Hills Neutrophils/100 WBC (Bld) 59.6 % Normal 43.0-75.0 [facility] Comment on above: Performed By: #### C BC #### [facility] [address] [place] [address] Dr. Ashlie Hills Platelet mean volume (Bld) [Entitic vol] 11.7 fL Normal 9.5-13.5 [facility] Comment on above: Performed By: #### C BC #### [facility] [address] [place] [address] Dr. Ashlie Hills PLT 117 103/ul Critically low 150-450 [facility] Comment on above: Performed By: #### C BC #### [facility] [address] [place] [address] Dr. Ashlie Hills RBC 5.95 106/ul Critically high 4.20-5.[address] [facility] Comment on above: Performed By: #### C BC #### [facility] [address] [place] [address] Dr. Ashlie Hills WBC 12.3 103/ul Critically high 4.0-11.0 [facility] Comment on above: Performed By: #### C BC #### [facility] [address] [place] [address] ABD/PELV W CONon [...] RICCO PICKARD Date: 2022-10-05 13:13 Normal [facility] ER URINE PROFILEon 3 Bilirubin Ql (U) Negative Normal NEGATIVE [facility] Comment on above: Performed By: #### P OCGLUC #### [facility] [address] [place] [address] Dr. Ashlie Hills Clarity (U) CLEAR Normal CLEAR [facility] Comment on above: Performed By: #### P OCGLUC #### [facility] [address] [address] [address] Ashlie Hills Color (U) YELLOW Normal YELLOW [facility] Comment on above: Performed By: #### P OCGLUC #### [facility] [address] [address] [address] Ashlie HOBBS A micrscopic examination will be performed if indicated. Normal [facility] Comment on above: Performed By: #### P OCGLUC #### [facility] [address] [address] [address] Ashlie Hills Glucose Ql (U) Negative Normal NEGATIVE [facility] Comment on above: Performed By: #### P OCGLUC #### [facility] [address] [address] [address] Ashlie Hills Hemoglobin Ql (U) Negative Normal NEGATIVE [facility] Comment on above: Performed By: #### P OCGLUC #### [facility] [address] [address] [address] Ashlie Hills Ketones Ql (U) Negative Normal NEGATIVE [facility] Comment on above: Performed By: #### P OCGLUC #### [facility] [address] [place] [address] Dr. Ashlie Hills LEUKOCYTES Negative Normal NEGATIVE [facility] Comment on above: Performed By: #### P OCGLUC #### [facility] [address] [place] [address] Dr. Ashlie Hills Nitrite Ql (U) Negative Normal NEGATIVE [facility] Comment on above: Performed By: #### P OCGLUC #### [facility] [address] [place] [address] Dr. Ashlie Hills pH (U) 6.0 [pH] Normal 5-9 [facility] Comment on above: Performed By: #### P OCGLUC #### [facility] [address] [place] [address] Dr. Ashlie Hills Protein (U) [Mass/Vol] 100 mg/dL Abnormal NEGAT YURY/ TRACE [facility] Comment on above: Performed By: #### P OCGLUC #### [facility] [address] [place] [address] Dr. Ashlie Hills SPEC GRAVITY 1.010 Normal 1.005-<=1.025 [facility] Comment on above: Performed By: #### P OCGLUC #### [facility] [address] [place] [address] Dr. Ashlie Hills UR MICRO IND INDICATED Normal [facility] Comment on above: Performed By: #### P OCGLUC #### [facility] [address] [place] [address] Dr. Ashlie Hills Urobilinogen Qn (U) 1.0 {Little'U}/dL Normal 0.2 - 1. 0 [facility] Comment on above: Performed By: #### P OCGLUC #### [facility] [address] [place] [address] Dr. Ashlie Hills LIPASEon 10-05-2022 Lipase [Catalytic activity/Vol] 1771.0 U/L Critically high 73.0-393.0 [facility] Comment on above: Performed By: #### C BC #### [facility] [address] [place] [address] Dr. Ashlie Hills PREG HCG QUALon 10-05-2022 , QUAL Negative Normal NEGATIVE [facility] Comment on above: Performed By: #### P OCGLUC #### [facility] [address] [place] [address] Dr. Ashlie Hills PROF 14(COMP METB)on 023 Albumin [Mass/Vol] 3.2 g/dL Critically low 3.4-5.0 [facility] Comment on above: Performed By: #### C BC #### [facility] [address] [place] [address] Dr. Ashlie Hills Albumin/Globulin [Mass ratio] 0.7 {ratio} Normal [facility] Comment on above: Performed By: #### C BC #### [facility] [address] [place] [address] Dr. Ashlie Hills ALP [Catalytic activity/Vol] 70 U/L Normal 46-116 [facility] Comment on above: Performed By: #### C BC #### [facility] [address] [place] [address] Dr. Ashlie Hills ALT [Catalytic activity/Vol] 11 U/L Critically low 14-59 [facility] Comment on above: Performed By: #### C BC #### [facility] [address] [place] [address] Dr. Ashlie Hills Anion gap [Moles/Vol] 10.3 mmol/L Normal [facility] Comment on above: Performed By: #### C BC #### [facility] [address] [place] [address] Dr. Ashlie Hills AST [Catalytic activity/Vol] 11 U/L Critically low 15-37 [facility] Comment on above: Performed By: #### C BC #### [facility] [address] [place] [address] Dr. Ashlie Hills Bilirubin [Mass/Vol] 0.9 mg/dL Normal 0.2-1.0 [facility] Comment on above: Performed By: #### C BC #### [facility] [address] [address] [address] Ashlie Hills Calcium [Mass/Vol] 9.3 mg/dL Normal 8.5-10.1 [facility] Comment on above: Performed By: #### C BC #### [facility] [address] [address] [address] Ashlie Hills Chloride [Moles/Vol] 105 mmol/L Normal 98-107 [facility] Comment on above: Performed By: #### C BC #### [facility] [address] [place] [address] Dr. Ashlie Hills CO2 [Moles/Vol] 30.6 mmol/L Normal 21.0-32.0 [facility] Comment on above: Performed By: #### C BC #### [facility] [address] [place] [address] Dr. Ashlie Hills Creatinine [Mass/Vol] 0.62 mg/dL Normal 0.55-1.02 [facility] Comment on above: Performed By: #### C BC #### [facility] [address] [place] [address] Dr. Ashlie Hills EGFR-AF CITIZEN [place] >60 Normal >=60 [facility] Comment on above: Performed By: #### C BC #### [facility] [address] [place] [address] Dr. Ashlie Hills EGFR-NON AF CITIZEN OF [place] >60 Normal >=60 [facility] Comment on above: Performed By: #### C BC #### [facility] [address] [address] [address] Ashlie Hills Globulin (S) [Mass/Vol] 4.6 g/dL Normal [facility] Comment on above: Performed By: #### C BC #### [facility] [address] [place] [address] Dr. Ashlie Hills Glucose [Mass/Vol] 85 mg/dL Normal 74-106 [facility] Comment on above: Performed By: #### C BC #### [facility] [address] [place] [address] Dr. Ashlie Hills Potassium [Moles/Vol] 3.9 mmol/L Normal 3.5-5.1 [facility] Comment on above: Performed By: #### C BC #### [facility] [address] [place] [address] Dr. Ashlie Hills Protein [Mass/Vol] 7.8 g/dL Normal 6.4-8.2 [facility] Comment on above: Performed By: #### C BC #### [facility] [address] [place] [address] Dr. Ashlie Hills Sodium [Moles/Vol] 142 mmol/L Normal 136-145 [facility] Comment on above: Performed By: #### C BC #### [facility] [address] [place] [address] Dr. Ashlie Hills Urea nitrogen [Mass/Vol] 12.0 mg/dL Normal 7.0-18.0 [facility] Comment on above: Performed By: #### C BC #### [facility] [address] [place] [address] Dr. Ashlie Hills Urea nitrogen/Creatinine [Mass ratio] 19.4 mg/mg Normal [facility] Comment on above: Performed By: #### C BC #### [facility] [address] [place] [address] Dr. Aslhie Hills URINE MICROSCOPIC ONLYon BACTERIA TRACE Abnormal NONE SEEN [facility] Comment on above: Performed By: #### P OCGLUC #### [facility] [address] [place] [address] Dr. Ashlie Hills Bacteria identified Cx Nom (U) NOT INDICATED Normal [facility] Comment on above: Performed By: #### P OCGLUC #### [facility] [address] [place] [address] Dr. Ashlie Hills CAST NONE SEEN Normal NONE SEEN [facility] Comment on above: Performed By: #### P OCGLUC #### [facility] [address] [place] [address] Dr. Ashlie Hills Crystals LM Nom (Urine sed) NONE SEEN Normal NONE SEEN [facility] Comment on above: Performed By: #### P OCGLUC #### [facility] [address] [place] [address] Dr. Ashlie Hills Epithelial cells LM Ql (Urine sed) MODERATE Abnormal NONE SEEN /RARE [facility] Comment on above: Performed By: #### P OCGLUC #### [facility] [address] [place] [address] Dr. Ashlie Hills MUCOUS NONE SEEN Normal NONE SEEN [facility] Comment on above: Performed By: #### P OCGLUC #### [facility] [address] [place] [address] Dr. Ashlie Hills RBC 0-2 Normal 0-2 [facility] Comment on above: Performed By: #### P OCGLUC #### [facility] [address] [place] [address] Dr. Ashlie Hills WBC 0-2 Abnormal NONE SEEN [facility] Comment on above: Performed By: #### P OCGLUC #### [facility] [address] [place] [address] Dr. Ashlie Hills [facility]06 SARS-CoV-2 (COVID-19) RNA MADDY+probe Ql (Unsp spec) Detected Abnormal NOT DETECTED [facility] Comment on above: Result Comment: This test is not yet approved or cleared by the [place] FDA. When there are no FDA-approved or cleared tests available, and other criteria are met, FDA can make tests available under an emergency access mechanism called an Emergency Use Authorization (EUA). The EUA for this test is supported by the [place] of Health and Human Service's declaration that [...] used). Performed By: #### C VDAGS #### [facility] [address] [place] [address] Dr. Ashlie Hills INFLUENZA A AND B AGon 09-21 INFLUANEGH SEE BELOW Normal [facility] Comment on above: Result Comment: Nega tive for Flu A protein angiten. Infection due to Flu A cannot be ruled out. Flu A angiten in the sample may be below the detection limit of the test. Performed By: #### I NFLUAB #### [facility] [address] [place] [address] Dr. Ashlie Hills [facility] Normal [facility] Comment on above: Result Comment: Nega tive for Flu B protein antigen. Infection due to Flu B cannot be ruled out. Flu B antigen in the sample may be below the detection limit of the test. Performed By: #### I NFLUAB #### [facility] [address] [place] [address] Dr. Ashlie Hills INFLUENZA A AG Negative Normal NEGATIVE SEE COMMENT [facility] Comment on above: Performed By: #### I NFLUAB #### [facility] [address] [place] [address] Dr. Ashlie Hills INFLUENZA B AG Negative Normal NEGATIVE SEE COMMENT [facility] Comment on above: Performed By: #### I NFLUAB #### [facility] [address] [place] [address] ABD/PELV W CONon [...] back to at least 10/21/2018, unchanged. https://www.ncbi.cone health.nih.gov/pmc/artic les/[email or web address]/ Electronically authenticated by: COLLIN HUERTAS Date: 2022-07-27 14:56 Normal [facility] CREATININEon 07-18-2022 Creatinine [Mass/Vol] 0.81 mg/dL Normal 0.55-1.02 [facility] Comment on above: Performed By: #### C BC #### [facility] [address] [place] [address] Dr. Ashlie Hills EGFR-AF CITIZEN [place] >60 Normal >=[address] [facility] Comment on above: Performed By: #### C BC #### [facility] [address] [place] [address] Dr. Ashlie Hills EGFR-NON AF CITIZEN [place] >60 Normal >=60 [facility] Comment on above: Performed By: #### C BC #### [facility] [address] [place] [address] LOW EXT W [...] PATRICIA VELOZ Date: 2022-07-18 14:58 Normal [facility] XR KNEE LT 1_2 Von 3 XR [...] HATTIE BAUTISTA Date: 2022-07-18 12:00 Normal [facility] Covid-19 PCR ([facility])on 06-09 SARS-CoV-2 (COVID-19) RNA MADDY+probe Ql (Unsp spec) Not detected Normal NOT DETECTED [facility] Comment on above: Result Comment: This test is not yet approved or cleared by the [place] FDA. When there are no FDA-approved or cleared tests available, and other criteria are met, FDA can make tests available under an emergency access mechanism called an Emergency Use Authorization (EUA). The EUA for this test is supported by the [place] of Health and Human Service's (HHS's) declaration [...] SARS-CoV-2. Performed By: #### C BC #### [facility] [address] [place] [address] Dr. Ashlie Hills INFLUENZA A AND B AGon 07-06 INFLUANEGH SEE BELOW Normal [facility] Comment on above: Result Comment: Nega tive for Flu A protein angiten. Infection due to Flu A cannot be ruled out. Flu A angiten in the sample may be below the detection limit of the test. Performed By: #### C BC #### [facility] [address] [address] [address] Ashlie Hills [facility] SEE BEL[facility] Normal [facility] Comment on above: Result Comment: Nega tive for Flu B protein antigen. Infection due to Flu B cannot be ruled out. Flu B antigen in the sample may be below the detection limit of the test. Performed By: #### C BC #### [facility] [address] [place] [address] Dr. Ashlie Hills INFLUENZA A AG Negative Normal NEGATIVE SEE COMMENT [facility] Comment on above: Performed By: #### C BC #### [facility] [address] [place] [address] Dr. Ashlie Hills INFLUENZA B AG Negative Normal NEGATIVE SEE COMMENT [facility] Comment on above: Performed By: #### C BC #### [facility] [address] [place] [address] Dr. Ashlie Hills POINT OF CARE GLUCOSEon 10- Glucose [Mass/Vol] 108 mg/dL Critically high 74-106 [facility] Comment on above: Performed By: #### C BC #### [facility] [address] [place] [address] Dr. Ashlie Hills RAGHU by IFAon 03-07-2022 Antinuclear Antibodies, IFA Negative Normal [facility] Comment on above: Result Comment: Nega tive <1:80 Borderline 1:80 Positive >1:80 ICAP nomenclature: AC-0 For more information about Hep-2 cell patterns use ANApatterns.org, the official website for the International Consensus on Antinuclear Antibody (RAGHU) Patterns (ICAP). Performed By: #### A NAIFA #### [facility] [address] [place] [address] Dr. Ashlie Hills IMMUNOFIXATION (TREVON), URINEo n 03-07-2022 TREVON Interpretation:U Comment Normal [facility] Comment on above: Result Comment: No m onoclonality detected. Performed By: #### C BC #### [facility] [address] [place] [address] Dr. Ashlie Hills IMMUNOFIXATION(TREVON),PROTEIN ELEC(PE),FREon 03-07-2022 Albumin [Mass/Vol] 3.0 g/dL Normal 2.9-4.4 [facility] Comment on above: Performed By: #### I NFLUAB #### [facility] [address] [place] [address] Dr. Ashlie Hills Albumin/Globulin [Mass ratio] 0.8 {ratio} Normal 0.7-1.7 [facility] Comment on above: Performed By: #### I NFLUAB #### [facility] [address] [place] [address] Dr. Ashlie Hills Itmci-2-Jrngkvkw 0.3 g/dL Normal 0.0-0.[address] [facility] Comment on above: Performed By: #### I NFLUAB #### [facility] [address] [place] [address] Dr. Ashlie Hills Xkkjd-7-Yknjozya 1.0 g/dL Normal 0.4-1.0 [facility] Comment on above: Performed By: #### I NFLUAB #### [facility] [address] [place] [address] Dr. Ashlie Hills Beta Globulin 1.8 g/dL Critically high 0.7-1.3 [facility] Comment on above: Performed By: #### I NFLUAB #### [facility] [address] [place] [address] Dr. Ashlie Hills Free [place] Lt Chains,S 45.2 mg/L Critically high 3.3-19.4 [facility] Comment on above: Performed By: #### I NFLUAB #### [facility] [address] [place] [address] Dr. Ashlie Hills Free Lambda Lt Chains,S 40.3 mg/L Critically high 5.7-26. 3 [facility] Comment on above: Performed By: #### I NFLUAB #### [facility] [address] [place] [address] Dr. Ashlie Hills Gamma Globulin 0.8 g/dL Normal 0.4-1.[address] [facility] Comment on above: Performed By: #### I NFLUAB #### [facility] [address] [place] [address] Dr. Ashlie Hills Globulin (S) [Mass/Vol] 3.9 g/dL Normal 2.2-3.9 [facility] Comment on above: Performed By: #### I NFLUAB #### [facility] [address] [place] [address] Dr. Ashlie Hills Immunofixation Result, Serum Comment Normal [facility] Comment on above: Result Comment: No m onoclonality detected. Performed By: #### I NFLUAB #### [facility] [address] [place] [address] Dr. Ashlie Hills Immunoglobulin A, Qn, Serum 776 mg/dL Critically high 87-352 [facility] Comment on above: Performed By: #### I NFLUAB #### [facility] [address] [place] [address] Dr. Ashlie Hills Immunoglobulin G, Qn, Serum 955 mg/dL Normal 586-1602 [facility] Comment on above: Performed By: #### I NFLUAB #### [facility] [address] [place] [address] Dr. Ashlie Hills Immunoglobulin M, Qn, Serum 39 mg/dL Normal 26-217 [facility] Comment on above: Performed By: #### I NFLUAB #### [facility] [address] [place] [address] Dr. Ashlie Hills [place]/Lambda Ratio, S 1.12 Normal 0.26-1.65 [facility] Comment on above: Performed By: #### I NFLUAB #### [facility] [address] [place] [address] Dr. Ashlie Hills M-Bright Not Observed Normal Not Observed [facility] Comment on above: Performed By: #### I NFLUAB #### [facility] [address] [place] [address] Dr. Ashlie Hills PDF . Normal [facility] Comment on above: Performed By: #### I NFLUAB #### [facility] [address] [place] [address] Dr. Ashlie Hills Please note: Comment Normal [facility] Comment on above: Result Comment: Prot ein electrophoresis scan will follow via computer, mail, or ice seller delivery. Performed By: #### I NFLUAB #### [facility] [address] [address] [address] Ashlie Hills Protein [Mass/Vol] 6.9 g/dL Normal 6.0-8.5 [facility] Comment on above: Performed By: #### I NFLUAB #### [facility] [address] [place] [address] Dr. Ashlie Hills C-PEPTIDE, SERUMon C-Peptide, Serum 3.1 ng/mL Normal 1.1-4.[address] [facility] Comment on above: Result Comment: C-Pe ptide reference interval is for fasting patients. Performed By: #### C PEPT #### [facility] [address] [place] [address] Dr. Ashlie Hills HEP B SURFACE ANTIGEN SCREEN on 03-04-2022 HBsAg Screen Negative Normal Negative [facility] Comment on above: Performed By: #### C BC #### [facility] [address] [place] [address] Dr. Ashlie Hills HEPATITIS C VIRUS AB W/ REFL EX QUANTon 03-04-2022 HCV AB <0.1 Normal 0.0-0.9 [facility] Comment on above: Performed By: #### I NFLUAB #### [facility] [address] [place] [address] Dr. Ashlie Hills Interpretation: Comment Normal [facility] Comment on above: Result Comment: Nega tive Not infected with HCV, unless recent infection is suspected or other evidence exists to indicate HCV infection. Performed By: #### I NFLUAB #### [facility] [address] [place] [address] Dr. Ashlie Hills MICROALBUMIN/ CREATININE RAT IOon 03-04-2022 Albumin, Urine 367.4 ug/mL Normal Not Estab. [facility] Comment on above: Performed By: #### C BC #### [facility] [address] [place] [address] Dr. Ashlie Hills Albumin/ Creatinine Ratio 239 mg/g creat Critically high 0-29 [facility] Comment on above: Result Comment: Norm al: 0 - 29 Moderately increased: 30 - 300 Severely increased: >300 Performed By: #### C BC #### [facility] [address] [address] [address] Ashlie Hills Creatinine, Urine 153.9 mg/dL Normal Not Estab. [facility] Comment on above: Performed By: #### C BC #### [facility] [address] [address] [address] Ashlie Hills VIT D 25-OH LABCORPon 2021 Vitamin D, 25-Hydroxy <4.0 Critically low 30.0-100.0 [facility] Comment on above: Result Comment: Graciela min D deficiency has been defined by the [place] of Medicine and an Endocrine Society practice guideline as a level of serum 25-OH vitamin D less than 20 ng/mL (1,2). The Endocrine Society went on to further define vitamin D insufficiency as a level between 21 and 29 ng/mL (2). 1. IOM ([place] of Medicine). 2010. Dietary reference intakes for calcium and D. [place]: The National Academies Press. 2. Lynda MF, Keely [place], Leandra LOPEZ, et al. Evaluation, treatment, and prevention of vitamin D deficiency: an Endocrine Society clinical practice guideline. JCEM. 2010; 96(7):1911-30. Performed By: #### C BC #### [facility] [address] [address] [address] Ashlie Hills GLYCOHEMOGLOBIN A1Con 2021 ADA RECOMMENDATION SEE BELOW Normal [facility] Comment on above: Result Comment: ADA RECOMMENDED LIMIT 4.0 - 6.0 ADA THERAPEUTIC TARGET < 7.0 ACTION SUGGESTED > 7.0 Performed By: #### C VDAGS #### [facility] [address] [address] [address] Ashlie Hills Glucose [Mass/Vol] 295 mg/dL Normal [facility] Comment on above: Performed By: #### C VDAGS #### [facility] [address] [place] [address] Dr. Ashlie Hills HbA1c (Bld) [Mass fraction] 11.9 % Critically high 4.5-6.2 [facility] Comment on above: Performed By: #### C VDAGS #### [facility] [address] [place] [address] Dr. Ashlie Hills HEMOGRAM AND PLATELon 2021 Hematocrit (Bld) [Volume fraction] 56.3 % Critically high 36.0-48.0 [facility] Comment on above: Performed By: #### C VDAGS #### [facility] [address] [place] [address] Dr. Ashlie Hills Hemoglobin (Bld) [Mass/Vol] 18.0 g/dL Critically high 12.0-16.0 [facility] Comment on above: Performed By: #### C VDAGS #### [facility] [address] [place] [address] Dr. Ashlie Hills MCH (RBC) [Entitic mass] 29.5 pg Normal 26.7-34.0 [facility] Comment on above: Performed By: #### C VDAGS #### [facility] [address] [place] [address] Dr. Ashlie Hills MCHC (RBC) [Mass/Vol] 32.0 g/dL Normal 29.9-35.2 [facility] Comment on above: Performed By: #### C VDAGS #### [facility] [address] [place] [address] Dr. Ashlie Hills MCV (RBC) [Entitic vol] 92.1 fL Normal 81.0-99.0 [facility] Comment on above: Performed By: #### C VDAGS #### [facility] [address] [place] [address] Dr. Ashlie Hills PLT 123 103/ul Critically low 150-450 [facility] Comment on above: Performed By: #### C VDAGS #### [facility] [address] [place] [address] Dr. Ashlie Hills RBC 6.11 106/ul Critically high 4.20-5.40 [facility] Comment on above: Performed By: #### C VDAGS #### [facility] [address] [place] [address] Dr. Ashlie Hills WBC 16.4 103/ul Critically high 4.0-11.0 [facility] Comment on above: Performed By: #### C VDAGS #### [facility] [address] [place] [address] Dr. Ashlie Hills LIPID PROFILEon 03-03-2022 CHOL-HDL RATIO NORM SEE BELOW Normal [facility] Comment on above: Result Comment: 3.3 - 4.4 LOW RISK 4.4 - 7.1 AVERAGE RISK 7.1 - 11.0 MODERATE RISK >11.0 HIGH RISK Performed By: #### C VDAGS #### [facility] [address] [place] [address] Dr. Ashlie Hills Cholesterol [Mass/Vol] 159 mg/dL Normal <=200 [facility] Comment on above: Performed By: #### C VDAGS #### [facility] [address] [place] [address] Dr. Ashlie Hills Cholesterol in HDL [Mass/Vol] 40 mg/dL Normal 40-60 [facility] Comment on above: Performed By: #### C VDAGS #### [facility] [address] [place] [address] Dr. Ashlie Hills Cholesterol in LDL [Mass/Vol] 81.8 mg/dL Normal [facility] Comment on above: Performed By: #### C VDAGS #### [facility] [address] [place] [address] Dr. Ashlie Hills Cholesterol.total/Gianna sterol in HDL [Mass ratio] 4.0 {ratio} Normal [facility] Comment on above: Performed By: #### C VDAGS #### [facility] [address] [place] [address] Dr. Ashlie Hills HDL NORMAL > or = 60 mg/dl - LOW CARDIOVASCULAR RISK <40 mg/dl - HIGH CARDIOVASCULAR RISK Normal [facility] Comment on above: Performed By: #### C VDAGS #### [facility] [address] [address] [address] Ashlie Hills LDL CALC NORMAL SEE BELOW Normal [facility] Comment on above: Result Comment: <100 mg/dl OPTIMAL 100 - 129 mg/dl NEAR OR ABOVE OPTIMAL 130 - 159 mg/dl BORDERLINE HIGH 160 - 189 mg/dl HIGH >190 mg/dl VERY HIGH Performed By: #### C VDAGS #### [facility] [address] [address] [address] Ashlie Hills Triglyceride [Mass/Vol] 186 mg/dL Critically high <=150 [facility] Comment on above: Performed By: #### C VDAGS #### [facility] [address] [place] [address] Dr. Ashlie Hills VLDL CALC 37.2 mg/dL Normal [facility] Comment on above: Performed By: #### C VDAGS #### [facility] [address] [place] [address] Dr. Ashlie Hills RENAL FUNCTION PANELon 03-03 Albumin [Mass/Vol] 3.1 g/dL Critically low 3.4-5.0 [facility] Comment on above: Performed By: #### C BC #### [facility] [address] [place] [address] Dr. Ashlie Hills Calcium [Mass/Vol] 9.2 mg/dL Normal 8.5-10.1 [facility] Comment on above: Performed By: #### C BC #### [facility] [address] [place] [address] Dr. Ashlie Hills Chloride [Moles/Vol] 102 mmol/L Normal 98-107 [facility] Comment on above: Performed By: #### C BC #### [facility] [address] [place] [address] Dr. Ashlie Hills CO2 [Moles/Vol] 31.9 mmol/L Normal 21.0-32.0 [facility] Comment on above: Performed By: #### C BC #### [facility] [address] [place] [address] Dr. Ashlie Hills Creatinine [Mass/Vol] 0.68 mg/dL Normal 0.55-1.02 [facility] Comment on above: Performed By: #### C BC #### [facility] [address] [address] [address] Ashlie Hills EGFR-AF [place]IZ[place] >60 Normal >=60 [facility] Comment on above: Performed By: #### C BC #### [facility] [address] [address] [address] Ashlie Hills EGFR-NON AF CITIZ[place] OF [place] >60 Normal >=60 [facility] [facility] Comment on above: Performed By: #### C BC #### [facility] [address] [address] [address] Ashlie Hilsl Glucose [Mass/Vol] 131 mg/dL Critically high 74-106 [facility] Comment on above: Performed By: #### C BC #### [facility] [address] [place] [address] Dr. Ashlie Hills Phosphate [Mass/Vol] 4.0 mg/dL Normal 2.6-4.7 [facility] Comment on above: Performed By: #### C BC #### [facility] [address] [place] [address] Dr. Ashlie Hills Potassium [Moles/Vol] 4.0 mmol/L Normal 3.5-5.1 [facility] Comment on above: Performed By: #### C BC #### [facility] [address] [address] [address] Ashlie Hills Sodium [Moles/Vol] 141 mmol/L Normal 136-145 [facility] Comment on above: Performed By: #### C BC #### [facility] [address] [place] [address] Dr. Ashlie Hills Urea nitrogen [Mass/Vol] 17.0 mg/dL Normal 7.0-18.0 [facility] Comment on above: Performed By: #### C BC #### [facility] [address] [place] [address] Dr. Ashlie Hills UA RANDOM W/MICROSCOPICon BACTERIA NONE SEEN Normal NONE SEEN [facility] Comment on above: Performed By: #### I NFLUAB #### [facility] [address] [address] [address] Ashlie Hills Bilirubin Ql (U) Negative Normal NEGATIVE [facility] Comment on above: Performed By: #### I NFLUAB #### [facility] [address] [address] [address] Ashlie Hills CAST NONE SEEN Normal NONE SEEN [facility] Comment on above: Performed By: #### I NFLUAB #### [facility] [address] [place] [address] Dr. Ashlie Hills Clarity (U) CLEAR Normal CLEAR [facility] Comment on above: Performed By: #### I NFLUAB #### [facility] [address] [place] [address] Dr. Ashlie Hills Color (U) YELLOW Normal YELLOW [facility] Comment on above: Performed By: #### I NFLUAB #### [facility] [address] [place] [address] Dr. Ashlie Hills Crystals LM Nom (Urine sed) NONE SEEN Normal NONE SEEN [facility] Comment on above: Performed By: #### I NFLUAB #### [facility] [address] [place] [address] Dr. Ashlie Hills Epithelial cells LM Ql (Urine sed) FEW Abnormal NONE SEEN /RARE [facility] Comment on above: Performed By: #### I NFLUAB #### [facility] [address] [place] [address] Dr. Ashlie Hills Glucose Ql (U) Negative Normal NEGATIVE [facility] Comment on above: Performed By: #### I NFLUAB #### [facility] [address] [address] [address] Ashlie Hills Hemoglobin Ql (U) Negative Normal NEGATIVE [facility] Comment on above: Performed By: #### I NFLUAB #### [facility] [address] [address] [address] Ashlie Hills Ketones Ql (U) Negative Normal NEGATIVE [facility] Comment on above: Performed By: #### I NFLUAB #### [facility] [address] [place] [address] Dr. Ashlie Hills LEUKOCYTES Negative Normal NEGATIVE [facility] Comment on above: Performed By: #### I NFLUAB #### [facility] [address] [place] [address] Dr. Ashlie Hills MUCOUS NONE SEEN Normal NONE SEEN [facility] Comment on above: Performed By: #### I NFLUAB #### [facility] [address] [place] [address] Dr. Ashlie Hills Nitrite Ql (U) Negative Normal NEGATIVE [facility] Comment on above: Performed By: #### I NFLUAB #### [facility] [address] [place] [address] Dr. Ashlie Hills pH (U) 5.5 [pH] Normal 5-9 [facility] Comment on above: Performed By: #### I NFLUAB #### [facility] [address] [place] [address] Dr. Ashlie Hills RBC 0-2 Normal 0-2 [facility] Comment on above: Performed By: #### I NFLUAB #### [facility] [address] [place] [address] Dr. Ashlie Hills SPEC GRAVITY >=1.030 Abnormal 1.005-<=1.025 [facility] Comment on above: Performed By: #### I NFLUAB #### [facility] [address] [place] [address] Dr. Ashlie Hills UA PROTEIN 100 mg/dl Abnormal NEGATIVE/ TRACE [facility] Comment on above: Performed By: #### I NFLUAB #### [facility] [address] [place] [address] Dr. Ashlie Hills Urobilinogen Qn (U) 0.2 {Little'U}/dL Normal 0.2 - 1. 0 [facility] Comment on above: Performed By: #### I NFLUAB #### [facility] [address] [place] [address] Dr. Ashlie Hills WBC NONE SEEN Normal NONE SEEN [facility] Comment on above: Performed By: #### I NFLUAB #### [facility] [address] [place] [address] Dr. Ashlie Hills URIC ACID SERUMon 03-03-2022 Urate [Mass/Vol] 5.0 mg/dL Normal 2.6-6.0 [facility] Comment on above: Performed By: #### I NFLUAB #### [facility] [address] [place] [address] Dr. Ashlie Hills URINE T PROTEIN CREAT RATIOo n 03-03-2022 Protein (U) [Mass/Vol] 77.9 mg/dL Critically high <=12.0 [facility] Comment on above: Performed By: #### C VDAGS #### [facility] [address] [place] [address] Dr. Ashlie Hills UR PROT CREAT RAT 0.44 Normal [facility] Comment on above: Performed By: #### C VDAGS #### [facility] [address] [place] [address] Dr. Ashlie Hills URINE CREAT 175.15 mg/dL Normal 20.00-300.00 [facility] Comment on above: Performed By: #### C VDAGS #### [facility] [address] [place] [address] Dr. Ashlie Hills CULTURE URINEon 12-25-2021 CULTURE URINE Culture Observations: GREATER THAN TWO ORGANISMS PRESENT, HEAVILY MIXED. PLEASE RESUBMIT CLEAN CATCH MID-STREAM URINE IF CLINICALLY INDICATED. Normal [facility] Comment on above: Performed By: #### I NFLUAB #### [facility] [address] [place] [address] Dr. Ashlie Hills CBC AUTO DIFFon 12-24-2021 BASO # 0.1 103/ul Normal 0.0-0.1 [facility] Comment on above: Performed By: #### C BC #### [facility] [address] [place] [address] Dr. Ashlie Hills Basophils/100 WBC (Bld) 0.5 % Normal 0.2-2.0 [facility] Comment on above: Performed By: #### C BC #### [facility] [address] [address] [address] Ashlie Hills EO # 0.4 103/ul Normal 0.0-0.7 [facility] Comment on above: Performed By: #### C BC #### [facility] [address] [place] [address] Dr. Ashlie Hills Eosinophils/100 WBC (Bld) 2.4 % Normal 0.9-7.0 [facility] Comment on above: Performed By: #### C BC #### [facility] [address] [place] [address] Dr. Ashlie Hills Erythrocyte distribution width (RBC) [Ratio] 14.1 % Normal 11.0-15.0 [facility] Comment on above: Performed By: #### C BC #### [facility] [address] [place] [address] Dr. Ashlie Hills Hematocrit (Bld) [Volume fraction] 55.9 % Critically high 36.0-48.0 [facility] Comment on above: Performed By: #### C BC #### [facility] [address] [place] [address] Dr. Ashlie Hills Hemoglobin (Bld) [Mass/Vol] 17.9 g/dL Critically high 12.0-16.0 [facility] Comment on above: Performed By: #### C BC #### [facility] [address] [place] [address] Dr. Ashlie Hills IG # 0.06 10e3/ul Critically high 0.00-0.03 [facility] Comment on above: Performed By: #### C BC #### [facility] [address] [place] [address] Dr. Ashlie Hills IG % 0.4 % Normal 0.0-0.5 [facility] Comment on above: Performed By: #### C BC #### [facility] [address] [place] [address] Dr. Ashlie Hills LYMPH # 5.8 103/ul Critically high 1.2-3.8 [facility] Comment on above: Performed By: #### C BC #### [facility] [address] [address] [address] Ashlie Hills Lymphocytes/100 WBC (Bld) 35.4 % Normal 20.5-60.0 [facility] Comment on above: Performed By: #### C BC #### [facility] [address] [place] [address] Dr. Ashlie Hills MANUAL DIFF REQ NO Normal [facility] Comment on above: Performed By: #### C BC #### [facility] [address] [address] [address] Ashlie Hills MCH (RBC) [Entitic mass] 29.4 pg Normal 26.7-34.0 [facility] Comment on above: Performed By: #### C BC #### [facility] [address] [place] [address] Dr. Ashlie Hills MCHC (RBC) [Mass/Vol] 32.0 g/dL Normal 29.9-35.2 [facility] Comment on above: Performed By: #### C BC #### [facility] [address] [place] [address] Dr. Ashlie Hills MCV (RBC) [Entitic vol] 91.8 fL Normal 81.0-99.0 [facility] Comment on above: Performed By: #### C BC #### [facility] [address] [place] [address] Dr. Ashlie Hills MONO # 0.8 103/ul Normal 0.3-0.8 [facility] Comment on above: Performed By: #### C BC #### [facility] [address] [place] [address] Dr. Ashlie Hills Monocytes/100 WBC (Bld) 4.8 % Normal 1.7-12.0 [facility] Comment on above: Performed By: #### C BC #### [facility] [address] [place] [address] Dr. Ashlie Hills NEUT # 9.3 103/ul Critically high 1.4-6.5 [facility] Comment on above: Performed By: #### C BC #### [facility] [address] [address] [address] Ashlie Hills Neutrophils/100 WBC (Bld) 56.5 % Normal 43.0-75.0 [facility] Comment on above: Performed By: #### C BC #### [facility] [address] [address] [address] Ashlie Hills Platelet mean volume (Bld) [Entitic vol] 12.9 fL Normal 9.5-13.5 [facility] Comment on above: Performed By: #### C BC #### [facility] [address] [address] [address] Ashlie Hills PLT 127 103/ul Critically low 150-450 [facility] Comment on above: Performed By: #### C BC #### [facility] [address] [address] [address] Ashlie Hlils RBC 6.09 106/ul Critically high 4.20-5.[address] [facility] Comment on above: Performed By: #### C BC #### [facility] [address] [address] [address] Ashlie Hills WBC 16.4 103/ul Critically high 4.0-11.[address] [facility] Comment on above: Performed By: #### C BC #### [facility] [address] [place] [address] ABD/PELVIS WO CONon [...] Severe right hip degenerative change. Normal [facility] ER URINE PROFILEon 2 Bilirubin Ql (U) Negative Normal NEGATIVE [facility] Comment on above: Performed By: #### E EVONNE LYMAN #### [facility] [address] [address] [address] Ashlie Hills Clarity (U) CLEAR Normal CLEAR [facility] Comment on above: Performed By: #### E EVONNE LYMAN #### [facility] [address] [place] [address] Dr. Ashlie Hills Color (U) DK. ORANGE Abnormal YELLOW [facility] Comment on above: Performed By: #### MADELINE DIAZRO #### [facility] [address] [place] [address] Dr. Ashlie HOBBS A micrscopic examination will be performed if indicated. Normal [facility] Comment on above: Performed By: #### PEREZ DIAZICRO #### [facility] [address] [place] [address] Dr. Ashlie Hills Glucose Ql (U) 250 mg/dl Abnormal NEGATIVE [facility] Comment on above: Performed By: #### MADELINE DIAZRO #### [facility] [address] [place] [address] Dr. Ashlie Hills Hemoglobin Ql (U) Negative Normal NEGATIVE [facility] Comment on above: Performed By: #### PEREZ DIAZICRO #### [facility] [address] [place] [address] Dr. Ashlie Hills Ketones Ql (U) Negative Normal NEGATIVE [facility] Comment on above: Performed By: #### MADELINE DIAZRO #### [facility] [address] [place] [address] Dr. Ashlie Hills LEUKOCYTES Negative Normal NEGATIVE [facility] Comment on above: Performed By: #### PEREZ DIAZICRO #### [facility] [address] [place] [address] Dr. Ashlie Hills Nitrite Ql (U) Negative Normal NEGATIVE [facility] Comment on above: Performed By: #### PEREZ DIAZICRO #### [facility] [address] [place] [address] Dr. Ashlie Hills pH (U) 5.0 [pH] Normal 5-9 [facility] Comment on above: Performed By: #### PEREZ DIAZICRO #### [facility] [address] [place] [address] Dr. Ashlie Hills Protein (U) [Mass/Vol] 100 mg/dL Abnormal NEGAT YURY/ TRACE [facility] Comment on above: Performed By: #### E MADELINE LYMANRO #### [facility] [address] [place] [address] Dr. Ashlie Hills SPEC GRAVITY >=1.030 Abnormal 1.005-<=1.025 [facility] Comment on above: Performed By: #### MADELINE DIAZRO #### [facility] [address] [place] [address] Dr. Ashlie Hills UR MICRO IND INDICATED Normal [facility] Comment on above: Performed By: #### MADELINE DIAZRO #### [facility] [address] [place] [address] Dr. Ashlie Hills Urobilinogen Qn (U) 1.0 {Little'U}/dL Normal 0.2 - 1. 0 [facility] Comment on above: Performed By: #### MADELINE DIAZRO #### [facility] [address] [place] [address] Dr. Ashlie Hills PROF CHEM 8 (BAS METB)on Anion gap [Moles/Vol] 12.1 mmol/L Normal [facility] Comment on above: Performed By: #### I NFLUAB #### [facility] [address] [place] [address] Dr. Ashlie Hills Calcium [Mass/Vol] 9.0 mg/dL Normal 8.5-10.1 [facility] Comment on above: Performed By: #### I NFLUAB #### [facility] [address] [place] [address] Dr. Ashlie Hills Chloride [Moles/Vol] 101 mmol/L Normal 98-107 [facility] Comment on above: Performed By: #### I NFLUAB #### [facility] [address] [place] [address] Dr. Ashlie Hills CO2 [Moles/Vol] 29.1 mmol/L Normal 21.0-32.0 [facility] Comment on above: Performed By: #### I NFLUAB #### [facility] [address] [address] [address] Ashlie Hills Creatinine [Mass/Vol] 0.86 mg/dL Normal 0.55-1.02 [facility] Comment on above: Performed By: #### I NFLUAB #### [facility] [address] [place] [address] Dr. Ashlie Hills EGFR-AF CITIZEN OF [place] >60 Normal >=60 [facility] Comment on above: Performed By: #### I NFLUAB #### [facility] [address] [address] [address] Ashlie Hills EGFR-NON AF CITIZEN OF [place] >60 Normal >=60 [facility] Comment on above: Performed By: #### I NFLUAB #### [facility] [address] [place] [address] Dr. Ashlie Hills Glucose [Mass/Vol] 236 mg/dL Critically high 74-106 [facility] Comment on above: Performed By: #### I NFLUAB #### [facility] [address] [place] [address] Dr. Ashlie Hills Potassium [Moles/Vol] 4.2 mmol/L Normal 3.5-5.1 [facility] Comment on above: Performed By: #### I NFLUAB #### [facility] [address] [place] [address] Dr. Ashlie Hills Sodium [Moles/Vol] 138 mmol/L Normal 136-145 [facility] Comment on above: Performed By: #### I NFLUAB #### [facility] [address] [place] [address] Dr. Ashlie Hills Urea nitrogen [Mass/Vol] 11.0 mg/dL Normal 7.0-18.0 [facility] Comment on above: Performed By: #### I NFLUAB #### [facility] [address] [place] [address] Dr. Ashlie Hills Urea nitrogen/Creatinine [Mass ratio] 12.8 mg/mg Normal [facility] Comment on above: Performed By: #### I NFLUAB #### [facility] [address] [place] [address] Dr. Ashlie Hills URINE MICROSCOPIC ONLYon BACTERIA SMALL Abnormal NONE SEEN [facility] Comment on above: Performed By: #### E RUR, UMICRO #### [facility] [address] [place] [address] Dr. Ashlie Hills Bacteria identified Cx Nom (U) INDICATED Normal [facility] Comment on above: Performed By: #### E RUR, UMICRO #### [facility] [address] [place] [address] Dr. Ashlie Hills CAST NONE SEEN Normal NONE SEEN [facility] Comment on above: Performed By: #### E RUR, UMICRO #### [facility] [address] [place] [address] Dr. Ashlie Hills Crystals LM Nom (Urine sed) NONE SEEN Normal NONE SEEN [facility] Comment on above: Performed By: #### E RUR, UMICRO #### [facility] [address] [place] [address] Dr. Ashlie Hills Epithelial cells LM Ql (Urine sed) MODERATE Abnormal NONE SEEN /RARE [facility] Comment on above: Performed By: #### E RUR, UMICRO #### [facility] [address] [place] [address] Dr. Ashlie Hills MUCOUS NONE SEEN Normal NONE SEEN [facility] Comment on above: Performed By: #### E RUR, UMICRO #### [facility] [address] [place] [address] Dr. Ashlie Hills RBC 0-2 Normal 0-2 [facility] Comment on above: Performed By: #### E RUR, UMICRO #### [facility] [address] [place] [address] Dr. Ashlie Hills WBC 0-2 Abnormal NONE SEEN [facility] Comment on above: Performed By: #### E RUR, UMICRO #### [facility] [address] [place] [address] Dr. Ashlie Hills YEAST PRESENT Abnormal NONE SEEN [facility] Comment on above: Performed By: #### E RUR, UMICRO #### [facility] [address] [place], [place] [address] Dr. Ashlie Hills HIP RIGHT 1 OR 2 VWS WITH PE LVISon 07-20-2020 HIP RIGHT 1 OR 2 VWS WITH PELVIS [facility] [place] Department of Radiology [address] [place] [id number] Patient Name: MITZI MACIAS : 1970 [...] MRI. Electronically signed: Pipo Acevedo. Transcribed by: [email or web address], User Resident: Electronically Signed by: PIPO ACEVEDO @ 07/20/2020 03:45 PM Normal [facility] Comment on above: Order Comment: evalu ate Vital Signs Date Time Vital Sign Value Performing Clinician Facility 10-27-2024 [id number]:[id number] Body height 170.2 cm Mckayla Blas [employer] Work Phone: [facility] 10-27-2024 14:11-0400 Body mass index (BMI) [Ratio] 56.51 kg/m2 Mckayla Blas [employer] Work Phone: [facility] 10-27-2024 14:11-0400 Body temperature 98.71 [degF] Mckayla Blas [employer] Work Phone: [facility] 10-27-2024 [id number] Body weight 163.66 kg Mckayla Blas [employer] Work Phone: [facility] 10-27-2024 14:11-0400 Diastolic blood pressure 74 mm[Hg] Mckayla Blas [employer] Work Phone: [facility] 10-27-2024 14:11-0400 Heart rate 75 /min Mckayla Blas [employer] Work Phone: [facility] 10-27-2024 14:11-0400 Respiratory rate 18 /min Mckayla Blas [employer] Work Phone: [facility] 10-27-2024 14:11-0400 SaO2% (BldA) [Mass fraction] 90 % Mckayla Blas [employer] Work Phone: [facility] 10-27-2024 14:11-0400 Systolic blood pressure 132 mm[Hg] Mckayla Blas [employer] Work Phone: [facility] 10-08-2024 [id number] Body height 170.2 cm Rain Souza MD Work Phone: [facility] 10-08-2024 11:21-0400 Body mass index (BMI) [Ratio] 55.91 kg/m2 Rain Souza MD Work Phone: [facility] 10-08-2024 11:21-0400 Body weight 161.93 kg Rain Souza MD Work Phone: [facility] 10-08-2024 11:21-0400 Diastolic blood pressure 70 mm[Hg] Rain Souza MD Work Phone: [facility] 10-08-2024 11:21-0400 Heart rate 70 /min Rain Souza MD Work Phone: [facility] 10-08-2024 11:21-0400 Respiratory rate 16 /min Rain Souza MD Work Phone: [facility] 10-08-2024 11:21-0400 SaO2% (BldA) [Mass fraction] 91 % Rain Souza MD Work Phone: [facility] 10-08-2024 11:21-0400 Systolic blood pressure 130 mm[Hg] Rain Souza MD Work Phone: [facility] 08-27-2024 17:44-0500 Body mass index (BMI) [Ratio] 57.31 kg/m2 Mckayla Blas [employer] Work Phone: [facility] 08-27-2024 17:44-0500 Body temperature 98.01 [degF] Mckayla Blas [employer] Work Phone: [facility] 08-27-2024 17:44-0500 Body weight 165.97 kg Mckayla Blas [employer] Work Phone: [facility] 08-27-2024 17:44-0500 Diastolic blood pressure 76 mm[Hg] Mckayla Blas [employer] Work Phone: [facility] 08-27-2024 17:44-0500 Heart rate 83 /min Mckaylataryn Blas [employer] Work Phone: [facility] 08-27-2024 17:44-0500 Respiratory rate 18 /min Mckayla Wan [employer] Work Phone: [facility] 08-27-2024 17:44-0500 SaO2% (BldA) [Mass fraction] 91 % Mckayla Blas [employer] Work Phone: [facility] 08-27-2024 17:44-0500 Systolic blood pressure 134 mm[Hg] Mckayla Wan [employer] Work Phone: [facility] 06-11-2024 10:00-0500 Blood Pressure Location Elbert ARAUZ [facility] 06-11-2024 10:00-0500 Diastolic blood pressure 68 mm[Hg] Elbert ARAUZ [facility] 06-11-2024 10:00-0500 Heart rate 76 /min Elbert ARAUZ [facility] 06-11-2024 10:00-0500 Systolic blood pressure 132 mm[Hg] Elbert ARAUZ [facility] 05-27-2024 10:20-0500 Body height 170.2 cm Rain Souza MD Work Phone: [facility] 05-27-2024 10:20-0500 Body mass index (BMI) [Ratio] 56.7 kg/m2 Rain Souza MD Work Phone: [facility] 05-27-2024 10:20-0500 Body weight 164.2 kg Rain Souza MD Work Phone: [facility] 05-27-2024 10:20-0500 Diastolic blood pressure 66 mm[Hg] Rain Souza MD Work Phone: [facility] 05-27-2024 10:20-0500 Heart rate 72 /min Rain Souza MD Work Phone: [facility] 05-27-2024 10:20-0500 Respiratory rate 16 /min Rain Souza MD Work Phone: [facility] 05-27-2024 10:20-0500 Systolic blood pressure 128 mm[Hg] Rain Souza MD Work Phone: [facility] 04-14-2024 10:27-0400 Body height 165.1 cm Mckaylataryn Sowdona [employer] Work Phone: [facility] 04-14-2024 10:27-0400 Body mass index (BMI) [Ratio] 61.01 kg/m2 Mckayla Aichholz [employer] Work Phone: [facility] 04-14-2024 10:27-0400 Body temperature 98.49 [degF] Mckayla Juanjosehholz [employer]PER[employer] Work Phone: [facility] 04-14-2024 10:27-0400 Body weight 166.29 kg Mckayla Harshadholz [employer] Work Phone: [facility] 04-14-2024 10:27-0400 Diastolic blood pressure 80 mm[Hg] Mckayla Aichholz [employer]PER[employer] Work Phone: [facility] 04-14-2024 10:27-0400 Heart rate 77 /min Mckayla Aichholz [employer] Work Phone: [facility] 04-14-2024 10:27-0400 Respiratory rate 19 /min Mckayla Aichholz [employer]PER[employer] Work Phone: [facility] 04-14-2024 10:27-0400 SaO2% (BldA) [Mass fraction] 92 % Mckayla Aichholz [employer] Work Phone: [facility] [facility]24 10:27-0400 Systolic blood pressure 116 mm[Hg] Mckayla Juanjosehholz VOLUNTEER SERVICES SUPERVISOR Work Phone: [facility] 03-08-2022 15:00-0400 Body height 170.18 cm Stephanie Tico Other [facility] Other 03-08-2022 15:00-0400 Body temperature 97.6 [degF] Stephanie Tico Other [facility] Other 03-08-2022 15:00-0400 Diastolic blood pressure 72 mm[Hg] Stephanie Tico Other [facility] Other 03-08-2022 15:00-0400 Respiratory rate 20 /min Stephanie Tico Other [facility] Other 03-08-2022 15:00-0400 SaO2% (BldA) [Mass fraction] 91 % Stephanie Tico Other [facility] Other 03-08-2022 15:00-0400 Systolic blood pressure 131 mm[Hg] Stephanie Tico Other [facility] Other 02-20-2022 09:20-0400 Body height 170.18 cm Stephanie Tico Other [facility] Other 02-20-2022 09:20-0400 Body temperature 96.5 [degF] Stephanie Tico Other [facility] Other 02-20-2022 09:20-0400 Diastolic blood pressure 69 mm[Hg] Stephanie Tico Other [facility] Other 02-20-2022 09:20-0400 Respiratory rate 20 /min Stephanie Tico Other [facility] Other 02-20-2022 09:20-0400 SaO2% (BldA) [Mass fraction] 91 % Stephanie Tico Other [facility] Other 02-20-2022 09:20-0400 Systolic blood pressure 129 mm[Hg] Stephanie Tico Other [facility] Other 02-06-2022 10:24-0400 Blood Pressure Location Elbert ARAUZ [facility] 02-06-2022 10:24-0400 Diastolic blood pressure 76 mm[Hg] Elbert ARAUZ [facility] 02-06-2022 10:24-0400 Heart rate 70 /min Elbert ARAUZ [facility] 02-06-2022 10:24-0400 Respiratory rate 16 /min Elbert ARAUZ [facility] 02-06-2022 10:24-0400 Systolic blood pressure 134 mm[Hg] Elbert ARAUZ [facility] Encounters Encounter Date Encounter Type Care Provider Facility Start: 10-27-2024 End: 10-27-2024 ambulatory MCKAYLA BLAS Not Available Start: 10-27-2024 End: 10-27-2024 Office outpatient visit 25 minutes Mckayla Blas VOLUNTEER SERVICES SUPERVISOR Work Phone: [facility] Comment on above: Primary hypertension (CMS/HCC) [...] 10-21-2024 Refill Mckayla Blas NP Work Phone: [facility] Comment on above: Chronic obstructive pulmonary disease, unspecified Start: 10-08-2024 End: 10-08-2024 Clinisync Result Encounter Mckayla Blas NP Work Phone: [facility] External Department Unsolicited Start: 10-08-2024 End: 10-08-2024 Clinisync Result Encounter Mckayla Blas NP Work Phone: [facility] External Department Unsolicited Start: 10-08-2024 End: 10-08-2024 Office outpatient visit 25 minutes Rain Souza MD Work Phone: [facility] Comment on above: Type 2 diabetes asiya itus with hyperglycemia, with long-term current use of insulin (CMS/[facility]) (Primary Dx); Encounter for dietary consultation; [...] 25 minutes Mckayla Blas NP Work Phone: [facility] Comment on above: Anxiety and depressi on (CMS/HCC) (Primary Dx); Morbid (severe) obesity due to excess calories (CMS/HCC); Body mass index (BMI) 50.0-59.9, adult (CMS/HCC); Malignant neoplasm of cervix uteri, unspecified (CMS/HCC); Diabetic polyneuropathy associated with type 2 diabetes mellitus (CMS/HCC); Chronic diastolic heart failure ([facility]/HCC); Primary hypertension (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); Gastroesophageal reflux disease, unspecified whether esophagitis present; Bilateral lower extremity edema; Type 2 diabetes mellitus with complication, with long-term current use of insulin ([facility]/HCC); Tobacco user; Mixed hyperlipidemia ([facility]); Gout, unspecified cause, unspecified chronicity, unspecified site; Vitamin deficiency; Gastro-esophageal reflux disease without esophagitis; Edema, unspecified; Edema; Hyperlipidemia, unspecified ([facility]); Encounter for smoking cessation counseling; Venous ulcer of right leg ([facility]); Antibiotic-induced yeast infection Start: 08-27-2024 End: 08-27-2024 ambulatory MCKAYLA BLAS Not Available Start: 08-27-2024 End: 08-27-2024 Clinisync Result Encounter Generic External Data Provider [facility] External Department Unsolicited Start: 08-27-2024 End: 08-27-2024 Clinisync Result Encounter Generic External Data Provider [facility] External Department Unsolicited Start: 08-08-2024 End: 08-08-2024 ambulatory [facility] Start: 07-17-2024 End: 07-17-2024 Refill Mckayla Blas NP Work Phone: [facility] Start: 07-14-2024 End: 07-14-2024 Office outpatient visit 25 minutes Mckayla Blas NP Work Phone: [facility] Comment on above: Primary hypertension ([facility]) (Primary Dx); Diabetic polyneuropathy associated with type 2 diabetes mellitus ([facility]); Pulmonary emphysema, unspecified emphysema type ([facility]); Critical limb ischemia of right lower extremity ([facility]); PAD (peripheral artery disease) ([facility]); Gastroesophageal reflux disease, unspecified whether esophagitis present; Bilateral lower extremity edema; Venous ulcer of right leg ([facility]); Type 2 diabetes mellitus with complication, with long-term current use of insulin ([facility]); Tobacco user; Encounter for smoking cessation counseling; Kidney stone; Adrenal mass 1 cm to 4 cm in diameter ([facility]); Radiculopathy, lumbar region; Non-seasonal allergic rhinitis, unspecified trigger; Type 2 diabetes mellitus with unspecified complications ([facility]) Start: 07-14-2024 End: 07-14-2024 ambulatory MCKAYLA AICHHOLZ Not Available Start: 07-05-2024 End: 07-07-2024 Refill Mckayla Aicmickeyz VOLUNTEER SERVICES SUPERVISOR [facility] Phone[facility] Comment on above: Bilateral lower extr emity edema Start: 06-11-2024 ambulatory Elbert ARAUZ Facili ty:[facility] [place] Start: 06-11-2024 End: 06-11-2024 Patient encounter procedure Elbert ARAUZ [facility] [place] Start: 05-27-2024 End: 05-27-2024 Bamboo flowsheet Rain Souza MD Work Phone: [facility] Start: 05-27-2024 End: 05-27-2024 Bamboo flowsheet Rain Souza MD Work Phone: [facility] Start: 05-27-2024 End: 05-27-2024 ambulatory RAIN SOUZA Not Available Start: 05-27-2024 End: 05-27-2024 Office outpatient visit 25 minutes Rain Souza MD Work Phone: [facility] Comment on above: Type 2 diabetes asiya itus with hyperglycemia, with long-term current use of insulin ([facility]) (Primary Dx); Encounter for dietary consultation; Vitamin D deficiency; Primary hypertension ([facility]); Insulin long-term use ([facility]); Hyperlipemia, mixed ([facility]); Microalbuminuria; Class 3 severe obesity due to excess calories with serious comorbidity and body mass index (BMI) of 50.0 to 59.9 in adult ([facility]) Start: 05-12-2024 End: 05-12-2024 Clinisync Result Encounter Generic External Data Provider [facility] External Department Unsolicited Start: 05-12-2024 End: 05-12-2024 Clinisync Result Encounter Generic External Data Provider [facility] External Department Unsolicited Start: 05-08-2024 ambulatory SARAH Wilkerson ty:SHEA Wilfredo Start: 04-14-2024 End: 04-14-2024 Bamboo flowsheet Mckaylataryn Blas VOLUNTEER SERVICES SUPERVISOR Work Phone: [facility] Start: 04-14-2024 End: 04-14-2024 Bamboo flowsheet Mckayla Wan VOLUNTEER SERVICES SUPERVISOR Work Phone: [facility] Start: 04-14-2024 End: 04-14-2024 Office outpatient visit 25 minutes Mckayla Blas VOLUNTEER SERVICES SUPERVISOR Work Phone: [facility] Comment on above: Primary hypertension (CMS/HCC) [...] Start: 04-05-2024 End: 04-06-2024 Refill Mckayla Aichholz VOLUNTEER SERVICES SUPERVISOR Work Phone: [facility] Comment on above: Hyperlipidemia, unsp ecified (CMS/HCC); Bilateral lower extremity edema Vitamin D deficiency , unspecified Start: 01-17-2024 Patient encounter procedure Rain Souza MD Work Phone: [facility] Start: 01-17-2024 End: 01-17-2024 ambulatory MCKAYLA AICHHOLZ Not Available Start: 11-15-2023 End: 11-15-2023 ambulatory MCKAYLA AICHHOLZ Not Available Start: 11-14-2023 End: 11-14-2023 ambulatory [facility] Start: 11-01-2023 End: 11-01-2023 ambulatory MCKAYLATaryn BLAS Not Available Start: 08-17-2023 Refill Mckayla Aichholz VOLUNTEER SERVICES SUPERVISOR Work Phone: [facility] Comment on above: Vaginal yeast infect ion (Primary Dx) Start: 08-14-2023 Refill Mckayla Aichholz VOLUNTEER SERVICES SUPERVISOR Work Phone: [facility] Comment on above: Type 2 diabetes asiya itus with unspecified complications (CMS/[facility]); Edema, unspecified; Edema Start: 12-05-2022 ambulatory NARENDRANSHERITA NICHOLEMIPATHY . Facility:[facility] Start: 12-05-2022 End: 12-06-2022 Evaluation and management of inpatient UMBERTO ALONDRA . Facility:[facility] Start: 11-23-2022 End: 11-23-2022 ambulatory TURNING MACHINE OPERATOR HELPER MCKAYLA AICHHOLZ Facility:[facility] Start: 11-22-2022 End: 11-23-2022 ambulatory TURNING MACHINE OPERATOR HELPER MCKAYLA AICHHOLZ Facility:[facility] Start: 11-17-2022 End: 11-18-2022 ambulatory SUBHASH GASPAR . Facility:[facility] Start: 11-15-2022 End: 11-15-2022 Patient encounter procedure SARAH VEGA [facility] Start: 10-05-2022 End: 10-05-2022 ambulatory MARIANO DIAB . Facility:[facility] Start: 09-21-2022 End: 09-21-2022 ambulatory TURNING MACHINE OPERATOR HELPER MCKAYLA AICHHOLZ Facility:[facility] Start: 09-14-2022 ambulatory RAFAEL [...] 03-08-2022 End: 03-08-2022 ambulatory Stephanie Tico Other [facility] Other Start: 03-08-2022 Office outpatient vi sit 15 minutes Stephanie Tico [facility] Start: 03-03-2022 End: 03-04-2022 ambulatory SAYDA BLAS Facility:[facility] Start: 02-20-2022 End: 02-20-2022 ambulatory Stephanie Tico Other [facility] Other Start: 02-20-2022 Office outpatient ne w 45 minutes Stephanie Tico [facility] Start: 02-06-2022 End: 02-06-2022 Patient encounter procedure Elbert ARAUZ [facility] Start: 01-19-2022 End: 01-20-2022 ambulatory GIL VALENZUELA . Facility:[facility] Start: 12-24-2021 End: 12-24-2021 ambulatory OLE RAMIREZ Facility:[facility] Start: 08-26-2020 End: 09-10-2020 Patient encounter procedure MARY TAVERAS Facility:[facility] Start: 10-30-2019 End: 10-30-2019 Emergency department patient visit JAMES Reis [facility] Start: 10-30-2019 End: 10-30-2019 Emergency department patient visit James Mandujanorogelio [facility] Emergency Department Start: 11-02-2016 Preoperative state Stephanie Cortés Other [facility] Other Procedures Date Procedure Procedure Detail Performing Clinician Start: 10-08-2024 Gluc bld gluc mntr d ev cleared fda spec home use Rain Souza MD Work Phone: Start: 10-08-2024 [facility] UA (CLEAN/CATCH) MICROSCOPIC IF INDICATE Mckayla Blas VOLUNTEER SERVICES SUPERVISOR Work Phone: Start: 08-27-2024 ALL CBC WITH AUTO DIFF Generic External Data Provider Start: 05-27-2024 Gluc bld gluc mntr d ev cleared fda spec home use Rain Souza MD Work Phone: Start: 05-12-2024 [facility] CREATININE Generic External Data Provider Start: 12-14-2023 Mammography Rain urena MD Work Phone: Start: 11-22-2022 Mammography Mckayla clifford VOLUNTEER SERVICES SUPERVISOR Work Phone: Start: 10-08-2015 Microscopic observat ion [Identifier] in Cervix by Cyto stain Mckayla Blas VOLUNTEER SERVICES SUPERVISOR Work Phone: H/O: hysterectomy Elbert LARA Laparoscopic cholecystectomy Elbert ARAUZ Operative procedure on foot Elbert ARAUZ Plan of Treatment Date Care Activity Detail Author Start: 10-08-2025 Urine screening for protein Diabetes: Urine Protein Screening [facility] Start: 08-03-2025 Screening for malignant neoplasm of colon [facility] Start: 07-14-2025 Glaucoma screening Diabetes: R etinopathy Screening [facility] Start: 05-13-2025 Glaucoma screening Diabetes: R etinopathy Screening [facility] Start: 03-09-2025 Influenza vaccination Influenz a Vaccine (Season Ended) [facility] Start: 01-28-2025 End: 01-28-2025 Patient encounter procedure 01/28/2025 10:50 AM EDT Office Visit [facility] [address] [place] [address] Rain Souza MD [address] [place] [address] [facility] Start: 01-16-2025 Medicare Annual Wellness (AWV) Medicare Annual Wellness (AWV) [facility] Start: 01-07-2025 Hemoglobin A1c measurement Diabetes: Hemoglobin A1C [facility] Start: 12-15-2024 End: 12-27-2025 MG Breast - bilateral Screening Bilateral screening mammogram Imaging Routine Encounter for screening mammogram for malignant neoplasm of breast Expected: 12/15/2024 (Approximate), Expires: 12/27/2025 [facility] Work Phone: Comment on above: Expected: 12/15/2024 (Approximate), Expires: 12/27/2025 Start: 12-13-2024 Screening for malignant neoplasm of breast Mammogram [facility] Start: 11-11-2024 Urine screening for protein Diabetes: Urine Protein Screening [facility] Start: 10-27-2024 End: 10-27-2024 Patient encounter procedure 10/27/2024 2:00 PM EDT Office Visit [facility] [address] [place] [address] Mckayla Blas, SILVANO [address] [place] [address] [facility] Start: 10-08-2024 End: 10-08-2024 Patient encounter procedure 10/08/2024 11:20 AM EDT Office Visit [facility] [address] [place] [address] Rain Souza MD [address] [place] [address] [facility] Start: 08-27-2024 End: 08-27-2024 Patient encounter procedure 08/27/2024 5:30 PM EST Office Visit [facility] [address] [place] [phone] Mckayla Blas NP [address] [place] [address] [facility] Start: 08-27-2024 End: 08-27-2025 25-hydroxyvitamin D3 [Mass/volume] in Serum or Plasma Vitamin D 25 hydroxy Lab Routine Vitamin deficiency Expected: 08/27/2024 (Approximate), Expires: 08/27/2025 [facility] Comment on above: Expected: 08/27/2024 (Approximate), Expires: 08/27/2025 Start: 08-27-2024 Hemoglobin A1c measurement Diabetes: Hemoglobin A1C [facility] Start: 08-27-2024 End: 08-27-2025 Hepatic function 2000 panel - Serum or Plasma Hepatic function panel Lab Routine Hyperlipidemia, unspecified (CMS/HCC) Expected: 08/27/2024 (Approximate), Expires: 08/27/2025 [facility] Comment on above: Expected: 08/27/2024 (Approximate), Expires: 08/27/2025 Start: 08-27-2024 End: 08-27-2025 Lipid 1996 panel - Serum or Plasma Lipid panel Lab Routine Mixed hyperlipidemia (CMS/HCC) Expected: 08/27/2024 (Approximate), Expires: 08/27/2025 [facility] Work Phone: Comment on above: Expected: 08/27/2024 (Approximate), Expires: 08/27/2025 Start: 08-27-2024 End: 08-27-2025 Microalbumin/Creatini ne panel in random Urine Microalbumin / creatinine, urine ratio Lab Routine Primary hypertension (CMS/HCC) Type 2 diabetes mellitus with complication, with long-term current use of insulin (CMS/HCC) Expected: 08/27/2024 (Approximate), Expires: 08/27/2025 [facility] Comment on above: Expected: 08/27/2024 (Approximate), Expires: 08/27/2025 Start: 08-27-2024 End: 08-27-2025 Urate [Mass/volume] in Serum or Plasma Uric acid Lab Routine Gout, unspecified cause, unspecified chronicity, unspecified site Expected: 08/27/2024 (Approximate), Expires: 08/27/2025 [facility] Comment on above: Expected: 08/27/2024 (Approximate), Expires: 08/27/2025 Start: 08-27-2024 End: 08-27-2025 Urinalysis complete panel - Urine Urinalysis with reflex microscopic (clean catch) Lab Routine Primary hypertension ([facility]) Type 2 diabetes mellitus with complication, with long-term current use of insulin ([facility]) Tobacco user Gout, unspecified cause, unspecified chronicity, unspecified site Expected: 08/27/2024 (Approximate), Expires: 08/27/2025 [facility] Comment on above: Expected: 08/27/2024 (Approximate), Expires: 08/27/2025 Start: 08-26-2024 End: 08-26-2024 Patient encounter procedure 08/26/2024 10:30 AM EST Office Visit [facility] [address] [place] [address] Rain Souza MD [address] [place] [address] [facility] Start: 07-14-2024 End: 07-14-2024 Patient encounter procedure 07/14/2024 6:30 PM EST Office Visit [facility] [address] [place] [address] Mckayla Blas NP [address] [place] [address] [facility] Start: 07-14-2024 End: 07-14-2024 Patient encounter procedure 07/14/2024 10:10 AM EST Office Visit [facility] [address] [place] [address] Rain Souza MD [address] [place] [address] [facility] Start: 06-06-2024 Influenza vaccination Influenza Vacc ine (#1) [facility] Comment on above: Postponed from 03/09 (Patient Refused) Start: 05-27-2024 End: 05-27-2024 Patient encounter procedure 05/27/2024 9:50 AM EST Office Visit [facility] [address] [place] [address] Rain Souza MD [address] [place] [address] [facility] Start: 05-17-2024 Hemoglobin A1c measurement Diabetes: Hemoglobin A1C [facility] Start: 05-15-2024 End: 05-15-2024 Chart abstracting 05/15/2024 Abstract [facility] [address] [place] [address] Rain Souza MD [address] [place] [address] [facility] Start: 05-15-2024 End: 05-15-2024 Patient encounter procedure 05/15/2024 11:20 AM EST Office Visit [facility] [address] [place] [address] Rain Souza MD [address] [place] [address] [facility] Start: 04-17-2024 End: 04-17-2024 Patient encounter procedure 04/17/2024 3:40 PM EDT Office Visit [facility] [address] [place] [address] Mckayla Blas, SILVANO [address] [place] [address] [facility] Start: 04-14-2024 End: 04-14-2024 Patient encounter procedure 04/14/2024 11:00 AM EDT Office Visit [facility] [address] [place] [address] Mckayla Blas NP [address] [place] [phone] Arrived [facility] Comment on above: Arrived Start: 03-09-2024 Influenza vaccination Influenza Vacc ine (#1) [facility] Start: 02-19-2024 Hemoglobin A1c measurement Diabetes: Hemoglobin A1C [facility] Start: 11-24-2023 Urine screening for protein Diabetes: Urine Protein Screening [facility] Start: 11-23-2023 Screening for malignant neoplasm of breast Mammogram [facility] Start: 10-15-2023 End: 10-15-2023 Patient encounter procedure 10/15/2023 4:30 PM EDT [facility] [address] [place] [address] Mckayla Blas, SILVANO [address] [place] [address] [facility] Start: 08-09-2023 Hemoglobin A1c measurement Diabetes: Hemoglobin A1C [facility] Start: 05-27-2021 Glaucoma screening Diabetes: R etinopathy Screening [facility] Start: 03-09-2020 Influenza vaccination Flu vacc ine (Season Ended) [place], [place] Start: 10-07-2018 Screening for malignant neoplasm of cervix [facility] Start: 2010 Lipid panel Lipid screen [place], [place] Start: 2000 Screening for malignant neoplasm of cervix HPV/Cotest [facility] Start: 1991 Screening for malignant neoplasm of cervix Cervical cancer screen [place], [place] Start: 1989 DTaP/Tdap/Td vaccine (1 - Tdap) DTaP/Tdap/Td vaccine (1 - Tdap) [place], [place] Start: 1985 HIV screening HIV screen Shantelle Alvarado [place], [place] Start: 1970 Medicare Annual Wellness (AWV) Medicare Annual Wellness (AWV) [facility] Start: 1970 Screening for malignant neoplasm of colon [facility] Immunizations Immunization Date Immunization Notes Care Provider Fa [facility] 05-18-2023 influenza, injectabl e, quadrivalent, contains preservative Mckayla Blas VOLUNTEER SERVICES SUPERVISOR Work Phone: [facility] 05-18-2023 influenza virus vacc ine, unspecified formulation Rain Souza MD Work Phone: [facility] 07-19-2021 SARS-CoV-2 (COVID-19 ) mRNA BNT-162b2 vax [employer] [facility] 10-28-2020 SARS-CoV-2 (COVID-19 ) mRNA BNT-162b2 vax [employer] [facility] 10-08-2020 SARS-CoV-2 (COVID-19 ) mRNA BNT-162b2 vax [employer] [facility] 04-16-2017 influenza virus vacc ine, H5N1, A/[place]/ (national stockpile) Mckayla Blas VOLUNTEER SERVICES SUPERVISOR Work Phone: [facility] 04-16-2017 influenza virus vacc ine, unspecified formulation Rain Souza MD Work Phone: [facility] 04-16-2017 influenza, unspecifi ed formulation Elbert ARAUZ [facility] 04-16-2017 pneumococcal polysaccharide vaccine, 23 valent Rain Souza MD Work Phone: [facility] 05-10-2016 influenza virus vacc ine, H5N1, A/[place] (national stockpile) Mckayla Blas NP Work Phone: [facility] 05-10-2016 influenza virus vacc ine, unspecified formulation Rain Souza MD Work Phone: [facility] 05-10-2016 influenza, unspecifi ed formulation Elbert ARAUZ [facility] 05-02-2013 influenza virus vacc ine, whole virus Rain Souza MD Work Phone: [facility] 05-02-2013 influenza, injectabl e, quadrivalent, contains preservative Mckayla Blas NP Work Phone: [facility] 05-02-2013 influenza, whole Elbert BARBARA ARAMBULA [facility] 01-29-1998 measles, mumps and rubella virus vaccine Rain Souza MD Work Phone: [facility] Payers Date Payer Category Payer Medicare (Managed Care) [employer] [id number] 2023 Private Health Insurance [facility] [id number] 2023-Present [address] [address] [place] [address] [id number] 2023 Medicare [id number] 2023 Private Health Insurance [id number] 2018 Medicaid MEDICAID [facility] [id number] 2018-Present [phone] [address] [place] [address] Medicaid [id number] 2017 Medicare [id number] 1970 Unknown [id number] 1970 Unknown [id number] 2.16.840.1.470599.3.579.2. 593 1970 Unknown [id number] 2.16.840.1.135520.3.579.2. 593 1970 Unknown [id number] 2.16.840.1.151380.3.579.2. 593 1970 Unknown [id number] 2.16.840.1.815431.3.579.2. 593 1970 Unknown [id number] 2.16.840.1.587573.3.579.2. 593 1970 Unknown [id number] 2.16.840.1.925174.3.579.2. 593 1970 Unknown [id number] 2.16.840.1.922099.3.579.2. 593 1970 Unknown [id number] 2.16.840.1.333509.3.579.2. 593 1970 Unknown [id number] 2.16.840.1.954060.3.579.2. 593 1970 Unknown [id number] 2.16.840.1.572988.3.579.2. 593 1970 Unknown [id number] 2.16.840.1.214324.3.579.2. 593 1970 Unknown [id number] 2.16.840.1.446708.3.579.2. 593 1970 Unknown [id number] 2.16.840.1.378215.3.579.2. 593 1970 Unknown [id number] 2.16.840.1.623857.3.579.2. 593 1970 Unknown [id number] 2.16.840.1.082914.3.579.2. 593 1970 Unknown [id number] 2.16.840.1.553695.3.579.2. 593 1970 Unknown [id number] 2.16.840.1.565767.3.579.2. 593 1970 Unknown [id number] 2.16.840.1.983048.3.579.2. 593 1970 Unknown [id number] 2.840.1.900383.3.579.2. 593 1970 Unknown [id number] 2.16.840.1.684859.3.579.2. 593 1970 Unknown [id number] .16.840.1.204136.3.579.2. 593 1970 Unknown [id number] 2.16.840.1.452572.3.579.2. 593 1970 Unknown [id number] 2.16.840.1.330811.3.579.2. 727 1970 Unknown [id number] 2.16.840.1.401027.3.579.2. 727 1970 Unknown [id number] 2.16.840.1.902384.3.579.2. 1259 1970 Unknown [id number] 2.16.840.1.930994.3.579.2. 1259 1970 Unknown [id number] 2.16.840.1.462783.3.579.2. 1259 1970 Unknown [id number] 2.16.840.1.672376.3.579.2. 1259 1970 Unknown [id number] 2.16.840.1.218274.3.579.2. 9 1970 Unknown [id number] 2.16.840.1.801879.3.579.2. 1258 1970 Unknown [id number] 2.16.840.1.582432.3.579.2. 9 1970 Unknown [id number] 2.16.840.1.751085.3.579.2. 9 1970 Unknown [id number] 2.16.840.1.820837.3.579.2. 1259 1959 Medicaid [id number] 1959 Private Health Insurance [id number] 1959 Unknown [id number] 2.16.840.1.212176.19 Social History Date Type Detail Facility Start: 02-17-2014 End: 07-10-2023 Tobacco smoking status NHIS Current every day smoker [place] Start: 02-17-1994 History of tobacco use Cigarette Smo ker [place] Start: 02-17-2014 End: 08-26-2024 Cigarettes smoked current (pack per day) - Reported [place] Start: 02-17-2014 Alcohol intake Current drinke r of alcohol (finding) [place] Start: 02-17-2014 Alcohol Comment Rare [place], [place] Start: 1970 Sex Assigned At Not on file [place] Exposure to SARS-CoV -2 (event) Unable to assess [place] Start: 02-06-2022 Tobacco smoking status Smoker (findi ng) [facility] Start: 07-10-2023 End: 08-26-2024 Sex Assigned At Female [facility] Start: 11-15-2022 End: 06-11-2024 Tobacco smoking status Heavy tobacco smoker (finding) [facility] Start: 07-10-2023 Tobacco use and exposure Smoke less tobacco non-user [facility] Start: 07-10-2023 End: 10-27-2024 Alcohol intake Lifetime non-drinker (finding) [facility] Within the last year , have you been afraid of your partner or ex-partner? No [facility] Do you belong to any clubs or organizations such as worship groups, [employer], valuklik or athletic groups, or school groups? Yes [...] Equipment Origin al Text Equipment Identifier Dates [id number] Start: 01-18-2024 USE TO TEST BLOO D SUGAR 4 TIMES DAILY [id number] Start: 07-07-2024 Functional Status Date Assessment Result Facility 06-11-2024 Functional Status N/A [facility] 11-15-2022 Functional Status N/A [facility] 02-06-2022 Functional Status N/A [facility] Clinical Notes 01-19-2022 to 10-27-2024 Mckayla Blas NP - 10/27/2024 2:39 PM Savannah Blas NP - 10/27/2024 2:38 PM Savannah Blas NP - 10/27/2024 2:38 PM Savannah Blas NP - 10/27/2024 2:00 PM EDTPatient Instructions Note Date & Type Note Facility 10-27-2024 History of Present illness Narrative Associated Problem(s): Venous ulcer of right leg ([facility]) Continue with wound care and management of [...] PPI Associated Problem(s): PAD (peripheral artery disease) ([facility]) Asa, statin Quit smoking BP and [...] 25 mg, Oral, 2 times daily HYDROcodone-acetaminophen (Wasco) 5-325 MG tablet 1 tablet, 3 times [...] CT Albuminuria 09/17/2023 Angiomyolipoma Anxiety and depression ([facility]) 07/10/2023 Asthma 07/10/2023 Body mass index (BMI) 50.0-59.9, adult ([facility]) Cellulitis of left lower extremity Cervical cancer ([facility]) 09/17/2023 Chronic pain of both knees 09/17/2023 COPD (chronic obstructive pulmonary disease) ([facility]) 07/10/2023 COPD exacerbation ([facility]) 09/17/2023 Decreased functional mobility 09/17/2023 Diabetic neuropathy ([facility]) 07/10/2023 Dietary counseling and surveillance Edema 07/10/2023 Elevated sed rate Elevated WBC count Essential (primary) hypertension ([facility]) GERD (gastroesophageal reflux disease) 09/17/2023 Hyperlipidemia ([facility]) 09/17/2023 Hypertension ([facility]) 07/10/2023 Insomnia 09/17/2023 longterm (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 ([facility]) Lower extremity edema 09/17/2023 Mixed hyperlipidemia ([facility]) Morbid (severe) obesity due to excess calories ([facility]) Obstructive sleep apnea 07/10/2023 PAD (peripheral artery disease) ([facility]) 09/17/2023 Pancreatitis 09/17/2023 Pneumonia 09/17/2023 Proteinuria, unspecified Pulmonary hypertension ([facility]) 09/17/2023 Radiculopathy, lumbar region 09/17/2023 Tobacco user 09/17/2023 Type 2 diabetes mellitus with complication, with long-term current use of insulin ([facility]) 07/10/2023 Unilateral primary osteoarthritis, right hip 09/17/2023 [...] complication, with long-term current use of insulin ([facility]) Check blood sugars daily, notify if [...] 25 MG tablet PAD (peripheral artery disease) (CMS/[facility]) Asa, statin Quit smoking BP and [...] Morbid (severe) obesity due to excess calories (CMS/[facility]) Discussed with patient their BMI (actual, [...] mounjaro for DM Chronic diastolic heart failure ([facility]) Current meds; asa, farxiga, lasix, hydralazine, lisinopril, Follows with cardilogy Reviewed 08/02 notes Cigarette nicotine dependence without complication Is currently using chantix, and is doing well, less desire, smoking less Vitamin D deficiency, unspecified Relevant Medications ergocalciferol (Vitamin D2) 1.25 MG (23569 UT) capsule Gastro-esophageal reflux disease without esophagitis Relevant Medications omeprazole (PriLOSEC) [address] capsule Other Visit Diagnoses Type 2 diabetes mellitus with unspecified complications Relevant Medications dapagliflozin (Farxiga) 10 MG Associated Problem(s): Cigarette nicotine dependence without complication Is currently using chantix, and is doing well, less desire, smoking less Associated Problem(s): Anxiety and depression ([facility]) Current meds: elavil, duloxtine, Associated Problem(s): Type 2 diabetes mellitus with complication, with long-term current use of insulin ([facility]) Check blood sugars daily, notify if [...] A1c is 7.4%!!! documented in this encounter [facility] 10-27-2024 Instructions Mckayla Blas NP - 10/27/2024 2:00 PM EDT No dose changes in meds You will be due for mammogram I will send order to [facility], they should call you to schedule If no call, please call [phone] ext [phone] documented in this encounter [facility] 10-08-2024 History of Present illness Narrative Images [...] 07/2020 New patient sent from Mckayla Blas [facility], for uncontrolled diabetes. A1c 10.3. She has [...] or chew. ergocalciferol (Vitamin D2) 1.25 MG (35714 UT) capsule TAKE 1 CAPSULE BY MOUTH [...] 25 mg, Oral, 2 times daily HYDROcodone-acetaminophen (Wasco) 5-325 MG tablet 1 tablet, 3 times [...] CT Albuminuria 09/17/2023 Angiomyolipoma Anxiety and depression ([facility]) 07/10/2023 Asthma ([facility]) 07/10/2023 Body mass index (BMI) 50.0-59.9, adult ([facility]) Cellulitis of left lower extremity Cervical cancer ([facility]) 09/17/2023 Chronic pain of both knees 09/17/2023 COPD (chronic obstructive pulmonary disease) ([facility] 07/10/2023 COPD exacerbation ([facility]) 09/17/2023 Decreased functional mobility 09/17/2023 Diabetic neuropathy ([facility]) 07/10/2023 Dietary counseling and surveillance Edema 07/10/2023 Elevated sed rate Elevated WBC count Essential (primary) hypertension ([facility]) GERD (gastroesophageal reflux disease) 09/17/2023 Hyperlipidemia ([facility]) 09/17/2023 Hypertension ([facility]) 07/10/2023 Insomnia 09/17/2023 longterm (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 ([facility]) Lower extremity edema 09/17/2023 Mixed hyperlipidemia ([facility]) Morbid (severe) obesity due to excess calories ([facility]) Obstructive sleep apnea 07/10/2023 PAD (peripheral artery disease) ([facility]) 09/17/2023 Pancreatitis 09/17/2023 Pneumonia 09/17/2023 Proteinuria, unspecified Pulmonary hypertension ([facility]) 09/17/2023 Radiculopathy, lumbar region 09/17/2023 Tobacco user 09/17/2023 Type 2 diabetes mellitus with complication, with long-term current use of insulin ([facility]) 07/10/2023 Unilateral primary osteoarthritis, right hip 09/17/2023 [...] hyperglycemia, with long-term current use of insulin ([facility]) - POCT glucose manually resulted - [...] months (around 02/07/2025). documented in this encounter [facility] 08-27-2024 History of Present illness Narrative Associated [...] or chew. ergocalciferol (Vitamin D2) 1.25 MG (13660 UT) capsule TAKE 1 CAPSULE BY MOUTH [...] 25 mg, Oral, 2 times daily HYDROcodone-acetaminophen (Wasco) 5-325 MG tablet 1 tablet, 3 times [...] CT Albuminuria 09/17/2023 Angiomyolipoma Anxiety and depression ([facility]) 07/10/2023 Asthma ([facility]) 07/10/2023 Body mass index (BMI) 50.0-59.9, adult ([facility]) Cellulitis of left lower extremity Cervical cancer ([facility]) 09/17/2023 Chronic pain of both knees 09/17/2023 COPD (chronic obstructive pulmonary disease) ([facility]) 07/10/2023 COPD exacerbation ([facility] 09/17/2023 Decreased functional mobility 09/17/2023 Diabetic neuropathy ([facility]) 07/10/2023 Dietary counseling and surveillance Edema 07/10/2023 Elevated sed rate Elevated WBC count Essential (primary) hypertension ([facility]) GERD (gastroesophageal reflux disease) 09/17/2023 Hyperlipidemia ([facility]) 09/17/2023 Hypertension ([facility]) 07/10/2023 Insomnia 09/17/2023 longterm (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 ([facility]) Lower extremity edema 09/17/2023 Mixed hyperlipidemia ([facility]) Morbid (severe) obesity due to excess calories ([facility]) Obstructive sleep apnea 07/10/2023 PAD (peripheral artery disease) ([facility]) 09/17/2023 Pancreatitis 09/17/2023 Pneumonia 09/17/2023 Proteinuria, unspecified Pulmonary hypertension ([facility]) 09/17/2023 Radiculopathy, lumbar region 09/17/2023 Tobacco user 09/17/2023 Type 2 diabetes mellitus with complication, with long-term current use of insulin ([facility]) 07/10/2023 Unilateral primary osteoarthritis, right hip [...] List Items Addressed This Visit Diabetic neuropathy ([facility]) Continue with cintia hudson mgmt is prescribing OARRS reviewed Fu in 3 months Goal: tighter glucose control Hypertension ([facility]) Please check blood pressure daily and [...] complication, with long-term current use of insulin ([facility]) Check blood sugars daily, notify if [...] / creatinine, urine ratio Anxiety and depression ([facility]) - Primary Current meds: elavil, duloxtine, [...] of the risks of continued smoking: stroke, PA, all forms of cancer, lung disease, and [...] of the risks of continued smoking: stroke, PA, all forms of cancer, lung disease, and [...] Morbid (severe) obesity due to excess calories ([facility]) Discussed with patient their BMI (actual, [...] Problem(s): Malignant neoplasm of cervix uteri, unspecified (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 Subjective Mitzi Macias is a [...] , Rfl: ergocalciferol (Vitamin D-2) 1.25 MG (86247 Units) capsule, Take 1.25 mg by mouth., [...] and at bedtime., Disp: , Rfl: HYDROcodone-acetaminophen (Wasco) 5-325 mg tablet, TAKE 1 TABLET BY [...] TWICE DAILY, Disp: (more content not included)... [facility] 07-14-2024 History of Present illness Narrative Associated [...] or chew. ergocalciferol (Vitamin D2) 1.25 MG (10496 UT) capsule TAKE 1 CAPSULE BY MOUTH ONE TIME PER WEEK furosemide (LASIX) 40 mg, Oral, Daily furosemide (LASIX) 20 mg, Oral, Daily PRN, Take in the afternoon as needed hydrALAZINE (APRESOLINE) 25 mg, Oral, 2 times daily HYDROcodone-acetaminophen (Wasco) 5-325 MG tablet 1 tablet, 3 times [...] CT Albuminuria 09/17/2023 Angiomyolipoma Anxiety and depression ([facility]) 07/10/2023 Asthma ([facility]) 07/10/2023 Body mass index (BMI) 50.0-59.9, adult ([facility]) Cellulitis of left lower extremity Cervical cancer ([facility]) 09/17/2023 Chronic pain of both knees 09/17/2023 COPD (chronic obstructive pulmonary disease) ([facility]) 07/10/2023 COPD exacerbation ([facility]) 09/17/2023 Decreased functional mobility 09/17/2023 Diabetic neuropathy ([facility]) 07/10/2023 Dietary counseling and surveillance Edema 07/10/2023 Elevated sed rate Elevated WBC count Essential (primary) hypertension ([facility]) GERD (gastroesophageal reflux disease) 09/17/2023 Hyperlipidemia ([facility]) 09/17/2023 Hypertension ([facility]) 07/10/2023 Insomnia 09/17/2023 longterm (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 ([facility]) Lower extremity edema 09/17/2023 Mixed hyperlipidemia ([facility]) Morbid (severe) obesity due to excess calories ([facility]) Obstructive sleep apnea 07/10/2023 PAD (peripheral artery disease) ([facility]) 09/17/2023 Pancreatitis 09/17/2023 Pneumonia 09/17/2023 Proteinuria, unspecified Pulmonary hypertension ([facility]) 09/17/2023 Radiculopathy, lumbar region 09/17/2023 Tobacco user 09/17/2023 Type 2 diabetes mellitus with complication, with long-term current use of insulin ([facility]) 07/10/2023 Unilateral primary osteoarthritis, right hip [...] List Items Addressed This Visit Diabetic neuropathy ([facility]) Continue with tristan [place] reviewed Fu in 3 months COPD (chronic obstructive pulmonary disease) ([facility]) Stable at this time, no changes in meds Encouraged smoking cessation Cont with dr Yañez Hypertension ([facility]) - Primary Please check blood pressure daily and record DASH diet Limit caffeine Take medication as directed Contact office if chest pain, pressure, dizziness, shortness of breath, swelling legs Recommend slow position changes Current meds: hydralazine, lisinopril, Type 2 diabetes mellitus with complication, with long-term current use of insulin ([facility]) Check blood sugars daily, notify if [...] of the risks of continued smoking: stroke, PA, all forms of cancer, lung disease, and [...] of the risks of continued smoking: stroke, PA, all forms of cancer, lung disease, and [...] complication, with long-term current use of insulin ([facility]) Check blood sugars daily, notify if [...] PPI Associated Problem(s): PAD (peripheral artery disease) ([facility]) Asa, statin Quit smoking BP and DM control Associated Problem(s): Hypertension ([facility]) Please check blood pressure daily and record DASH diet Limit caffeine Take medication as directed Contact office if chest pain, pressure, dizziness, shortness of breath, swelling legs Recommend slow position changes Current meds: hydralazine, lisinopril, Associated Problem(s): COPD (chronic obstructive pulmonary disease) ([facility]) Stable at this time, no changes in meds Encouraged smoking cessation Cont with dr Yañez Associated Problem(s): Diabetic neuropathy ([facility]) Continue with tristan [place] reviewed Fu in 3 months documented in this encounter [facility] 06-11-2024 Hospital Discharge instructions Patient Education [...] require a prescription. You can also purchase lmqk-osm-ntgiwtl medicines. Medicines may have nicotine in them [...] and encouragement. Call telephone quitlines, such as 8-869-VMAO-NOW, reach out to support groups, or work [...] provider. Document Revised: 06/16/2022 Document Reviewed: 06/16/2022 [employer] Patient Education 2023 [employer]. 06/11/2024 10:39:22 Dietary Guidelines to Help Prevent [...] include: ?8 oz (237 mL) of milk, tbasciu-joqslufmrqwh-rrsqu milk, and calcium-fortifiedfruit juice. Calcium-fortified means that [...] ?Spinach (cooked), rhubarb, beets, sweet potatoes, and Cymraes chard. ?Peanuts. ?Potato chips, liberian fries, and baked potatoes with skin on. ?Nuts and nut products. ?Chocolate. If you regularly take a diuretic medicine, make sure to eat at least 1 or 2 servings of fruits or vegetables that are high in potassium each day. These include: ?Avocado. ?Banana. ?Lamont, prune, carrot, or tomato juice. ?Baked potato. [...] magnesium, fish oil, or vitamin B6. Take lehb-fsq-dgzacip and prescription medicines only as told by [...] provider. Document Revised: 10/05/2022 Document Reviewed: 10/05/2022 [employer] Patient Education 2023 [employer]. Follow Up Care 05/06/2024 08:24:56 With:REGLA PHIPPS, Elbert Joya, URL Address: [facility] [address], [place] [address]- When: Unknown [facility] 05-27-2024 History of Present illness [...] or chew. ergocalciferol (Vitamin D2) 1.25 MG (45417 UT) capsule TAKE 1 CAPSULE BY MOUTH ONE TIME PER WEEK furosemide (LASIX) 20 mg, Oral, Daily PRN, Take in the afternoon as needed furosemide (LASIX) 40 mg, Oral, Daily Glucose Blood (ACCU-CHEK JAQUI PLUS ) 4 times daily hydrALAZINE (APRESOLINE) 25 mg, Oral, 2 times daily HYDROcodone-acetaminophen (Wasco) 5-325 MG tablet 1 tablet, 3 times [...] CT Albuminuria 09/17/2023 Angiomyolipoma Anxiety and depression ([facility]) 07/10/2023 Asthma ([facility]) 07/10/2023 Body mass index (BMI) 50.0-59.9, adult ([facility]) Cellulitis of left lower extremity Cervical cancer ([facility]) 09/17/2023 Chronic pain of both knees 09/17/2023 COPD (chronic obstructive pulmonary disease) ([facility] 07/10/2023 COPD exacerbation ([facility]) 09/17/2023 Decreased functional mobility 09/17/2023 Diabetic neuropathy ([facility]) 07/10/2023 Dietary counseling and surveillance Edema 07/10/2023 Elevated sed rate Elevated WBC count GERD (gastroesophageal reflux disease) 09/17/2023 Hyperlipidemia ([facility]) 09/17/2023 Hypertension ([facility]) 07/10/2023 Insomnia 09/17/2023 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 ([facility] Lower extremity edema 09/17/2023 Morbid (severe) obesity due to excess calories ([facility]) Obstructive sleep apnea 07/10/2023 PAD (peripheral artery disease) ([facility]) 09/17/2023 Pancreatitis 09/17/2023 Pneumonia 09/17/2023 Proteinuria, unspecified Pulmonary hypertension ([facility]) 09/17/2023 Radiculopathy, lumbar region 09/17/2023 Tobacco user 09/17/2023 Type 2 diabetes mellitus with complication, with long-term current use of insulin ([facility] 07/10/2023 Unilateral primary osteoarthritis, right hip 09/17/2023 [...] hyperglycemia, with long-term current use of insulin ([facility]) - POCT glucose manually resulted - POCT glycosylated hemoglobin (Hb A1C) docked device We will continue with Lantus 58, lispro 02/16/12 according to meal size, Mounjaro 15 mg once weekly, Farxiga 5 mg once a day Encounter for dietary consultation Vitamin D deficiency Primary hypertension ([facility]) To follow with her PCP Insulin long-term use ([facility]) Hyperlipemia, mixed ([facility]) Continue with Zocor 10 mg once daily Microalbuminuria Class 3 severe obesity due to excess calories with serious comorbidity and body mass index (BMI) of 50.0 to 59.9 in adult ([facility]) Diet and exercise reviewed with the patient Follow up in about 3 months (around 08/27/2024). documented in this encounter [facility] 04-14-2024 History of Present illness Narrative Associated Problem(s): Hyperpigmentation of skin Will try cerevue ointment to see if helps Associated Problem(s): Tobacco user Urged to quit Associated Problem(s): Type 2 diabetes mellitus with complication, with long-term current use of insulin (CMS/[facility]) Check blood sugars daily, follow w [...] Associated Problem(s): COPD (chronic obstructive pulmonary disease) (CMS/[facility]) Stable at this time, no changes in meds Encouraged smoking cessation Cont with dr Yañez Associated Problem(s): Diabetic neuropathy ([facility]/HCC) Continue with tristan EAST reviewed Fu in [...] being taken. She does not see a drycleaner.Eye exam is not current. Hypertension This is [...] or chew. ergocalciferol (Vitamin D2) 1.25 MG (34851 UT) capsule TAKE 1 CAPSULE BY MOUTH ONE TIME PER WEEK furosemide (LASIX) 20 mg, Oral, Daily PRN, Take in the afternoon as needed furosemide (LASIX) 40 mg, Oral, Daily Glucose Blood (ACCU-CHEK JAQUI PLUS ) 4 times daily HumaLOG KWIKPEN 100 UNIT/ML injection Subcutaneous hydrALAZINE (APRESOLINE) 25 mg, Oral, 2 times daily HYDROcodone-acetaminophen (Wasco) 5-325 MG tablet 1 tablet, 3 times [...] CT Albuminuria 09/17/2023 Angiomyolipoma Anxiety and depression ([facility]) 07/10/2023 Asthma ([facility]) 07/10/2023 Cellulitis of left lower extremity Cervical cancer ([facility] 09/17/2023 Chronic pain of both knees 09/17/2023 COPD (chronic obstructive pulmonary disease) ([facility] 07/10/2023 COPD exacerbation ([facility] 09/17/2023 Decreased functional mobility 09/17/2023 Diabetic neuropathy ([facility]) 07/10/2023 Edema 07/10/2023 Elevated sed rate Elevated WBC count GERD (gastroesophageal reflux disease) 09/17/2023 Hyperlipidemia ([facility]) 09/17/2023 Hypertension ([facility]) 07/10/2023 Insomnia 09/17/2023 Lower extremity edema 09/17/2023 Obstructive sleep apnea 07/10/2023 PAD (peripheral artery disease) ([facility] 09/17/2023 Pancreatitis 09/17/2023 Pneumonia 09/17/2023 Pulmonary hypertension ([facility]) 09/17/2023 Radiculopathy, lumbar region 09/17/2023 Tobacco user 09/17/2023 Type 2 diabetes mellitus with complication, with long-term current use of insulin ([facility]) 07/10/2023 Unilateral primary osteoarthritis, right hip 09/17/2023 [...] List Items Addressed This Visit Diabetic neuropathy ([facility]) Continue with lyrica OARRS reviewed Fu in 3 months Relevant Medications pregabalin (Lyrica) 300 MG capsule COPD (chronic obstructive pulmonary disease) ([facility]) - Primary Stable at this time, no changes in meds Encouraged smoking cessation Cont with dr Yañez Hypertension ([facility]) Stable on current meds Refill meds Relevant Medications hydrALAZINE (Apresoline) 25 MG tablet lisinopril 20 MG tablet Type 2 diabetes mellitus with complication, with long-term current use of insulin ([facility]) Check blood sugars daily, follow w [...] 500 MCG tablet documented in this encounter [facility] 11-14-2023 Note [facility] Cardiology - [facility] Subjective Mitzi Macias is a 53 y.o. year old female being seen as new patient to establish care. Ref from Mckayla Blas CNP for pulmonary hypertension. She had echo in Aug 2023 while inpatient at [facility] for pneumonia and COPD exacerbation. Denies [...] (BMI) of 50.0 to 59.9 in adult ([facility]) Non-seasonal allergic rhinitis Obstructive sleep apnea Other chronic pain PAD (peripheral artery disease) ([facility]) Pneumonia Encounter for screening mammogram for malignant neoplasm of breast Pulmonary hypertension ([facility]) Radiculopathy, lumbar region Current smoker Type 2 diabetes mellitus with complication, with long-term current use of insulin ([facility]) Unilateral primary osteoarthritis, right hip Vaginal [...] was admitted in early 2023 to the [facility] with hypoxemia and treated as COPD exacerbation. [...] wheelchair Skin: Gene (more content not included)... [facility] 11-15-2022 Hospital Discharge instructions Patient Education 11/15/2022 [...] include: ?8 oz (237 mL) of milk, sigwikn-pwjjhvetnumd-haitw milk, and calcium-fortifiedfruit juice. Calcium-fortified means that [...] ?Spinach (cooked), rhubarb, beets, sweet potatoes, and Cymraes chard. ?Peanuts. ?Potato chips, liberian fries, and baked potatoes with skin on. ?Nuts and nut products. ?Chocolate. If you regularly take a diuretic medicine, make sure to eat at least 1 or 2 servings of fruits or vegetables that are high in potassium each day. These include: ?Avocado. ?Banana. ?Lamont, prune, carrot, or tomato juice. ?Baked potato. [...] magnesium, fish oil, or vitamin B6. Take pyut-bxx-lpplcic and prescription medicines only as told by [...] provider. Document Revised: 03/06/2022 Document Reviewed: 03/06/2022 [employer] Patient Education 2022 [employer]. Follow Up Care 02/06/2022 11:44:09 With:SARAH VEGA PA-C, URL Address: [address] [place] [address] When: Unknown [facility] 08-24-2022 Note CONSULTATION CONSULTATION DATE: [...] We maintain her on pain medication with Wasco 5/325 t.i.d., diclofenac 75 mg b.i.d. Her [...] her at this point. A refill for Wasco 5/325 t.i.d. and diclofenac 75 mg b.i.d. will be sent to the pharmacy. Vitamin compliance and nutrition were discussed and enforced. I did highly encourage her to use exercise bands to increase the strength in her lower extremities. We will see her in three months' time, unless otherwise indicated, and patient agrees. [facility] 05-11-2022 Note CONSULTATION CONSULTATION DATE: 05/11/2022 This [...] 150. Medications include Lyrica 300 mg b.i.d., Wasco 5/325 t.i.d., diclofenac 75 mg b.i.d. and [...] her medications today. We will maintain Lyrica, Wasco and diclofenac at the set dose and frequency. We will follow-up in the clinic in three months' time. The patient is in agreement to this. Vitamin importance and nutrition were discussed. [facility] 04-20-2022 Note CONSULTATION CONSULTATION DATE: 04/20/2022 HISTORY [...] medications include Tylenol, Lyrica 300 mg b.i.d., Wasco 5/325 t.i.d., amitriptyline, diclofenac and duloxetine. Patient's [...] be followed up in the clinic. [facility] 03-08-2022 Evaluation note Encounter Date Diagnosis Assessment [...] to the [facility]. Thrombocytopenia is unclear etiology. [facility] Other 08-15-2022 Evaluation note* Encounter Date Diagnosis [...] follow with Dr. Souza and Dr. Arauz. [facility] Other 08-01-2022 Hospital Discharge instructions Patient Education [...] fried and sweet foods. General instructions Take kyxr-oxo-sbosbvr and prescription medicines only as told by [...] 04/21/2010 Document Revised: 10/16/2019 Document Reviewed: 07/11/2018 [employer] Patient Education 2020 [employer]. Follow Up Care 01/05/2022 12:02:03 With:REGLA PHIPPS, Elbert Joya, URL Address: [facility] [address], [place] [phone] [phone] When:Within 6 Month(s) Comments:w/ repeat CT A/P [facility] 07-14-2022 NoteCONSULTATION PROCEDURE DATE: 01/19/2022 PRE [...] and Approved by: GIL VALENZUELA . 01/27/2022 14:15:00[facility]07-14-2022 NoteCONSULTATION CONSULTATION DATE: 01/19/2022 This is [...] today. Medications include Lyrica 300 mg b.i.d., Wasco 5/325 t.i.d., diclofenac 75 mg b.i.d. and [...] and Approved by: GIL VALENZUELA . 01/27/2022 14:15:00[facility] Future Appointments Appointment Date:08/14/2022 09:15:00 AM Scheduled Provider:Elbert ARAUZ MD Location:[facility] Appointment Type:URO Office Visit [facility] evaluation + Plan note Future Appointments Appointment Date:04/22/2024 10:00:00 AM Scheduled Provider:SARAH VEGA PA-C Location:[facility] Appointment Type:URO Office Visit [facility] evalkbppcr note* Diagnosis Type 2 diabetes mellitus with unspecified complications ([facility]) Edema, unspecified Edema [facility] encounter [facility]* Diagnosis Vaginal yeast infection- Primary Candidiasis of vulva and vagina documented in this encounter [facility]* Diagnosis Primary hypertension ([facility]/HCC)- Primary Unspecified essential hypertension Insomnia Insomnia, unspecified Type 2 diabetes mellitus with complication, with long-term current use of insulin ([facility]) Non-seasonal allergic rhinitis, unspecified trigger Type 2 diabetes mellitus with unspecified complications ([facility]/HCC) Anxiety and depression ([facility]) Gastro-esophageal reflux disease without esophagitis Edema, unspecified Edema Diabetic polyneuropathy associated with type 2 diabetes mellitus ([facility]) Chronic obstructive pulmonary disease, unspecified (CMS/[facility]) Pulmonary emphysema, unspecified emphysema type ([facility]) Bilateral lower extremity edema Tobacco user Tobacco use disorder Hyperpigmentation of skin Other dyschromia documented in this encounter [facility]* Diagnosis Obstructive sleep apnea- Primary Obstructive sleep apnea (adult) (pediatric) Pulmonary emphysema, unspecified emphysema type ([facility]/HCC) Primary hypertension ([facility]) Unspecified essential hypertension Type 2 diabetes mellitus with complication, with long-term current use of insulin ([facility]) Anxiety and depression ([facility]) Bilateral lower extremity edema Pulmonary emphysema, unspecified emphysema type ([facility]/HCC)- Primary Primary hypertension ([facility]) Unspecified essential hypertension Class 3 severe obesity with serious comorbidity and body mass index (BMI) of 50.0 to 59.9 in adult, unspecified obesity type ([facility]) Obstructive sleep apnea Obstructive sleep apnea (adult) (pediatric) Pulmonary hypertension ([facility]) Other chronic pulmonary heart diseases Tobacco user Tobacco use disorder Cardiomegaly Primary hypertension ([facility])- Primary Unspecified essential hypertension Gastroesophageal reflux disease, unspecified whether esophagitis present Type 2 diabetes mellitus with complication, with long-term current use of insulin ([facility]) Mixed hyperlipidemia ([facility]) Mixed hyperlipidemia Tobacco user Tobacco use disorder Encounter for screening mammogram for malignant neoplasm of breast Chronic obstructive pulmonary disease, unspecified ([facility]) Other specified chronic obstructive pulmonary disease ([facility]) Anxiety and depression ([facility]) Edema, unspecified Edema Hyperlipidemia, unspecified ([facility]) Diabetic polyneuropathy associated with type 2 diabetes mellitus ([facility]) Gout, unspecified cause, unspecified chronicity, unspecified site Non-seasonal allergic rhinitis, unspecified trigger Bilateral lower extremity edema COPD exacerbation ([facility]) Obstructive chronic bronchitis with exacerbation Pulmonary emphysema, unspecified emphysema type ([facility]) Venous insufficiency Unspecified venous (peripheral) insufficiency Candidiasis of breast COPD exacerbation ([facility])- Primary Obstructive chronic bronchitis with exacerbation Pulmonary hypertension ([facility]) Other chronic pulmonary heart diseases Class 3 severe obesity with serious comorbidity and body mass index (BMI) of 50.0 to 59.9 in adult, unspecified obesity type ([facility]) Encounter for subsequent annual wellness visit (AWV) in Medicare patient- Primary Type 2 diabetes mellitus with unspecified complications ([facility]) Pulmonary emphysema, unspecified emphysema type ([facility]) Moderate persistent asthma without complication (CMS/[facility]) Primary hypertension ([facility]) Unspecified essential hypertension Type 2 diabetes mellitus with complication, with long-term current use of insulin ([facility]) Class 3 severe obesity with serious comorbidity and body mass index (BMI) of 50.0 to 59.9 in adult, unspecified obesity type (CMS/[facility]) Tobacco user Tobacco use disorder Other headache syndrome Malignant neoplasm of cervix uteri, unspecified ([facility]) Other specified disorders of adrenal gland ([facility]) Major depressive disorder, single episode, mild (HCC) ([facility]) Major depressive disorder, single episode, mild 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 exposed ([facility]) Chronic respiratory failure, unspecified whether with hypoxia or hypercapnia ([facility]) Disorder of adrenal gland, unspecified (CMS/[facility]) Non-pressure chronic ulcer of other part of right lower leg limited to breakdown of skin ([facility]) Non-recurrent acute suppurative otitis media of left ear without spontaneous rupture of tympanic membrane Primary hypertension ([facility])- Primary Unspecified essential hypertension Insomnia Insomnia, unspecified Type 2 diabetes mellitus with complication, with long-term current use of insulin ([facility]) Non-seasonal allergic rhinitis, unspecified trigger Type 2 diabetes mellitus with unspecified complications ([facility]) Anxiety and depression ([facility]) Gastro-esophageal reflux disease without esophagitis Edema, unspecified Edema Diabetic polyneuropathy associated with type 2 diabetes mellitus ([facility]) Chronic obstructive pulmonary disease, unspecified ([facility]) Pulmonary emphysema, unspecified emphysema type ([facility]) Bilateral lower extremity edema Tobacco user Tobacco use disorder Hyperpigmentation of skin Other dyschromia Type 2 diabetes mellitus with hyperglycemia, with long-term current use of insulin ([facility])- Primary Encounter for dietary consultation Vitamin D deficiency Primary hypertension ([facility]) Unspecified essential hypertension Insulin long-term use ([facility]) Encounter for long-term (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 Hyperlipemia, mixed ([facility]) Mixed hyperlipidemia Microalbuminuria Proteinuria Class 3 severe obesity due to excess calories with serious comorbidity and body mass index (BMI) of 50.0 to 59.9 in adult ([facility]) documented in this encounter [facility]* Diagnosis Hyperlipidemia, unspecified ([facility]) Bilateral lower extremity edema documented in this encounter [facility]* Diagnosis Vitamin D deficiency, unspecified documented in this encounter [facility]* Diagnosis Obstructive sleep apnea- Primary Obstructive sleep apnea (adult) (pediatric) Pulmonary emphysema, unspecified emphysema type ([facility]) Primary hypertension ([facility]) Unspecified essential hypertension Type 2 diabetes mellitus with complication, with long-term current use of insulin ([facility]) Anxiety and depression ([facility]) Bilateral lower extremity edema Pulmonary emphysema, unspecified emphysema type ([facility])- Primary Primary hypertension ([facility]) Unspecified essential hypertension Class 3 severe obesity with serious comorbidity and body mass index (BMI) of 50.0 to 59.9 in adult, unspecified obesity type ([facility]) Obstructive sleep apnea Obstructive sleep apnea (adult) (pediatric) Pulmonary hypertension ([facility]) Other chronic pulmonary heart diseases Tobacco user Tobacco use disorder Cardiomegaly Primary hypertension ([facility])- Primary Unspecified essential hypertension Gastroesophageal reflux disease, unspecified whether esophagitis present Type 2 diabetes mellitus with complication, with long-term current use of insulin ([facility]) Mixed hyperlipidemia ([facility]) Mixed hyperlipidemia Tobacco user Tobacco use disorder Encounter for screening mammogram for malignant neoplasm of breast Chronic obstructive pulmonary disease, unspecified ([facility]) Other specified chronic obstructive pulmonary disease ([facility]) Anxiety and depression ([facility]) Edema, unspecified Edema Hyperlipidemia, unspecified ([facility]) Diabetic polyneuropathy associated with type 2 diabetes mellitus ([facility]) Gout, unspecified cause, unspecified chronicity, unspecified site Non-seasonal allergic rhinitis, unspecified trigger Bilateral lower extremity edema COPD exacerbation ([facility]) Obstructive chronic bronchitis with exacerbation Pulmonary emphysema, unspecified emphysema type ([facility]) Venous insufficiency Unspecified venous (peripheral) insufficiency Candidiasis of breast COPD exacerbation ([facility])- Primary Obstructive chronic bronchitis with exacerbation Pulmonary hypertension ([facility]) Other chronic pulmonary heart diseases Class 3 severe obesity with serious comorbidity and body mass index (BMI) of 50.0 to 59.9 in adult, unspecified obesity type ([facility]) Encounter for subsequent annual wellness visit (AWV) in Medicare patient- Primary Type 2 diabetes mellitus with unspecified complications ([facility]) Pulmonary emphysema, unspecified emphysema type ([facility]) Moderate persistent asthma without complication ([facility]) Primary hypertension ([facility]/HCC) Unspecified essential hypertension Type 2 diabetes mellitus with complication, with long-term current use of insulin (CMS/[facility]) Class 3 severe obesity with serious comorbidity and body mass index (BMI) of 50.0 to 59.9 in adult, unspecified obesity type (CMS/HCC) Tobacco user Tobacco use disorder Other headache syndrome Malignant neoplasm of cervix uteri, unspecified (CMS/HCC) Other specified disorders of adrenal gland (CMS/[facility]) Major depressive disorder, single episode, mild (HCC) ([facility]) Major depressive disorder, single episode, mild 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 exposed (CMS/[facility]) Chronic respiratory failure, unspecified whether with hypoxia or hypercapnia (CMS/[facility]) Disorder of adrenal gland, unspecified (CMS/[facility]) Non-pressure chronic ulcer of other part of right lower leg limited to breakdown of skin (CMS/[facility]) Non-recurrent acute suppurative otitis media of left ear without spontaneous rupture of tympanic membrane Primary hypertension ([facility])- Primary Unspecified essential hypertension Insomnia Insomnia, unspecified Type 2 diabetes mellitus with complication, with long-term current use of insulin ([facility]) Non-seasonal allergic rhinitis, unspecified trigger Type 2 diabetes mellitus with unspecified complications (CMS/[facility]) Anxiety and depression ([facility]) Gastro-esophageal reflux disease without esophagitis Edema, unspecified Edema Diabetic polyneuropathy associated with type 2 diabetes mellitus ([facility]) Chronic obstructive pulmonary disease, unspecified (CMS/[facility]) Pulmonary emphysema, unspecified emphysema type ([facility]) Bilateral lower extremity edema Tobacco user Tobacco use disorder Hyperpigmentation of skin Other dyschromia Bilateral lower extremity edema documented in this encounter [facility]* Diagnosis Obstructive sleep apnea- Primary Obstructive sleep apnea (adult) (pediatric) Pulmonary emphysema, unspecified emphysema type (CMS/HCC) Primary hypertension ([facility]) Unspecified essential hypertension Type 2 diabetes mellitus with complication, with long-term current use of insulin ([facility]) Anxiety and depression (CMS/[facility]) Bilateral lower extremity edema Pulmonary emphysema, [...] to 59.9 in adult, unspecified obesity type ([facility]/HCC) Encounter for subsequent annual wellness visit (AWV) in Medicare patient- Primary Type 2 diabetes mellitus with unspecified complications (CMS/HCC) Pulmonary emphysema, unspecified emphysema type (CMS/HCC) Moderate persistent asthma without complication (CMS/HCC) Primary hypertension (CMS/HCC) Unspecified essential hypertension Type 2 diabetes mellitus with complication, with long-term current use of insulin (CMS/[facility]) Class 3 severe obesity with serious [...] lower leg limited to breakdown of skin (CMS/[facility]) Non-recurrent acute suppurative otitis media of left ear without spontaneous rupture of tympanic membrane Primary hypertension ([facility])- Primary Unspecified essential hypertension Insomnia Insomnia, unspecified Type 2 diabetes mellitus with complication, with long-term current use of insulin (CMS/[facility]) Non-seasonal allergic rhinitis, unspecified trigger Type 2 diabetes mellitus with unspecified complications (CMS/[facility]) Anxiety and depression ([facility]) Gastro-esophageal reflux disease without esophagitis Edema, unspecified Edema Diabetic polyneuropathy associated with type 2 diabetes mellitus (CMS/[facility]) Chronic obstructive pulmonary disease, unspecified (CMS/[facility]) Pulmonary emphysema, unspecified emphysema type (CMS/[facility]) Bilateral lower extremity edema Tobacco user Tobacco use disorder Hyperpigmentation of skin Other dyschromia Primary hypertension ([facility])- Primary Unspecified essential hypertension Diabetic polyneuropathy associated with type 2 diabetes mellitus ([facility]) Pulmonary emphysema, unspecified emphysema type ([facility]) Critical limb ischemia of right lower extremity ([facility]) PAD (peripheral artery disease) ([facility]) Unspecified peripheral vascular disease Gastroesophageal reflux disease, unspecified whether esophagitis present Bilateral lower extremity edema Venous ulcer of right leg ([facility]) Type 2 diabetes mellitus with complication, with long-term current use of insulin ([facility]) Tobacco user Tobacco use disorder Encounter for smoking cessation counseling Kidney stone Calculus of kidney Adrenal mass 1 cm to 4 cm in diameter ([facility]) Radiculopathy, lumbar region Thoracic or lumbosacral neuritis or radiculitis, unspecified Non-seasonal allergic rhinitis, unspecified trigger Type 2 diabetes mellitus with unspecified complications ([facility]) documented in this encounter [facility] HealthcareEvaluation note* Diagnosis Obstructive sleep apnea- Primary Obstructive sleep apnea (adult) (pediatric) Pulmonary emphysema, unspecified emphysema type (CMS/HCC) Primary hypertension ([facility]) Unspecified essential hypertension Type 2 diabetes mellitus with complication, with long-term current use of insulin ([facility]) Anxiety and depression (CMS/[facility]) Bilateral lower extremity edema Pulmonary emphysema, unspecified emphysema type (CMS/HCC)- Primary Primary hypertension ([facility]) Unspecified essential hypertension Class 3 severe [...] polyneuropathy associated with type 2 diabetes mellitus (CMS/[facility]) Gout, unspecified cause, unspecified chronicity, unspecified site Non-seasonal allergic rhinitis, unspecified trigger Bilateral lower extremity edema COPD exacerbation (CMS/[facility]) Obstructive chronic bronchitis with exacerbation Pulmonary emphysema, unspecified emphysema type (CMS/[facility]) Venous insufficiency Unspecified venous (peripheral) insufficiency Candidiasis of breast COPD exacerbation (CMS/[facility])- Primary Obstructive chronic bronchitis with exacerbation Pulmonary hypertension (CMS/HCC) Other chronic pulmonary heart diseases Class 3 severe obesity with serious comorbidity and body mass index (BMI) of 50.0 to 59.9 in adult, unspecified obesity type ([facility]) Encounter for subsequent annual wellness visit (AWV) in Medicare patient- Primary Type 2 diabetes mellitus with unspecified complications (CMS/[facility]) Pulmonary emphysema, unspecified emphysema type (CMS/[facility]) Moderate persistent asthma without complication (CMS/[facility]) Primary hypertension (CMS/[facility]) Unspecified essential hypertension Type 2 diabetes mellitus with complication, with long-term current use of insulin ([facility]) Class 3 severe obesity with serious comorbidity and body mass index (BMI) of 50.0 to 59.9 in adult, unspecified obesity type (CMS/HCC) Tobacco user Tobacco use disorder Other headache syndrome Malignant neoplasm of cervix uteri, unspecified (CMS/HCC) Other specified disorders of adrenal gland (CMS/HCC) Major depressive disorder, single episode, mild (HCC) (CMS/[facility]) Major depressive disorder, single episode, mild 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 exposed (CMS/[facility]) Chronic respiratory failure, unspecified whether with hypoxia or hypercapnia (CMS/HCC) Disorder of adrenal gland, unspecified ([facility]) Non-pressure chronic ulcer of other part of right lower leg limited to breakdown of skin ([facility]) Non-recurrent acute suppurative otitis media of left ear without spontaneous rupture of tympanic membrane Primary hypertension ([facility])- Primary Unspecified essential hypertension Insomnia Insomnia, unspecified Type 2 diabetes mellitus with complication, with long-term current use of insulin ([facility]) Non-seasonal allergic rhinitis, unspecified trigger Type 2 diabetes mellitus with unspecified complications ([facility]) Anxiety and depression ([facility]) Gastro-esophageal reflux disease without esophagitis Edema, unspecified Edema Diabetic polyneuropathy associated with type 2 diabetes mellitus ([facility]) Chronic obstructive pulmonary disease, unspecified (CMS/[facility]) Pulmonary emphysema, unspecified emphysema type (CMS/[facility]) Bilateral lower extremity edema Tobacco user Tobacco use disorder Hyperpigmentation of skin Other dyschromia Primary hypertension ([facility])- Primary Unspecified essential hypertension Diabetic polyneuropathy associated with type 2 diabetes mellitus ([facility]) Pulmonary emphysema, unspecified emphysema type ([facility]) Critical limb ischemia of right lower extremity ([facility]) PAD (peripheral artery disease) ([facility]) Unspecified peripheral vascular disease Gastroesophageal reflux disease, unspecified whether esophagitis present Bilateral lower extremity edema Venous ulcer of right leg ([facility]) Type 2 diabetes mellitus with complication, with long-term current use of insulin ([facility]) Tobacco user Tobacco use disorder Encounter for smoking cessation counseling Kidney stone Calculus of kidney Adrenal mass 1 cm to 4 cm in diameter ([facility]) Radiculopathy, lumbar region Thoracic or lumbosacral neuritis or radiculitis, unspecified Non-seasonal allergic rhinitis, unspecified trigger Type 2 diabetes mellitus with unspecified complications ([facility]) Anxiety and depression ([facility])- Primary Morbid (severe) obesity due to excess calories ([facility]) Body mass index (BMI) 50.0-59.9, adult ([facility]) Malignant neoplasm of cervix uteri, unspecified (CMS/[facility]) Diabetic polyneuropathy associated with type 2 diabetes mellitus ([facility]) Chronic diastolic heart failure (CMS/[facility]) Chronic diastolic heart failure Primary hypertension ([facility]) Unspecified essential hypertension 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 (CMS/[facility]) Gastroesophageal reflux disease, unspecified whether esophagitis present Bilateral lower extremity edema Type 2 diabetes mellitus with complication, with long-term current use of insulin ([facility]) Tobacco user Tobacco use disorder Mixed hyperlipidemia ([facility]) Mixed hyperlipidemia Gout, unspecified cause, unspecified chronicity, unspecified site Vitamin deficiency Unspecified vitamin deficiency Gastro-esophageal reflux disease without esophagitis Edema, unspecified Edema Hyperlipidemia, unspecified [place] Encounter for smoking cessation counseling Venous ulcer of right leg ([facility] Antibiotic-induced yeast infection documented in this encounter [facility] HealthcareEvaluation note* Diagnosis Obstructive sleep apnea- Primary Obstructive sleep apnea (adult) (pediatric) Pulmonary emphysema, unspecified emphysema type ([facility]) Primary hypertension ([facility]) Unspecified essential hypertension Type 2 diabetes mellitus with complication, with long-term current use of insulin ([facility] Anxiety and depression ([facility]) Bilateral lower extremity edema Pulmonary emphysema, unspecified emphysema type ([facility])- Primary Primary hypertension ([facility] Unspecified essential hypertension Class 3 severe obesity with serious comorbidity and body mass index (BMI) of 50.0 to 59.9 in adult, unspecified obesity type Obstructive sleep apnea Obstructive sleep apnea (adult) (pediatric) Pulmonary hypertension ([facility]) Other chronic pulmonary heart diseases Tobacco user Tobacco use disorder Cardiomegaly Primary hypertension ([facility])- Primary Unspecified essential hypertension Gastroesophageal reflux disease, unspecified whether esophagitis present Type 2 diabetes mellitus with complication, with long-term current use of insulin ([facility] Mixed hyperlipidemia ([facility]) Mixed hyperlipidemia Tobacco user Tobacco use disorder Encounter for screening mammogram for malignant neoplasm of breast Chronic obstructive pulmonary disease, unspecified Other specified chronic obstructive pulmonary disease Anxiety and depression ([facility]) Edema, unspecified Edema Hyperlipidemia, unspecified ([facility] Diabetic polyneuropathy associated with type 2 diabetes mellitus ([facility]) Gout, unspecified cause, unspecified chronicity, unspecified site Non-seasonal allergic rhinitis, unspecified trigger Bilateral lower extremity edema COPD exacerbation ([facility]) Obstructive chronic bronchitis with exacerbation Pulmonary emphysema, unspecified emphysema type ([facility]) Venous insufficiency Unspecified venous (peripheral) insufficiency Candidiasis of breast COPD exacerbation ([facility] Primary Obstructive chronic bronchitis with exacerbation Pulmonary hypertension ([facility] Other chronic pulmonary heart diseases Class 3 severe obesity with serious comorbidity and body mass index (BMI) of 50.0 to 59.9 in adult, unspecified obesity type Encounter for subsequent annual wellness visit (AWV) in Medicare patient- Primary Type 2 diabetes mellitus with unspecified complications Pulmonary emphysema, unspecified emphysema type ([facility]) Moderate persistent asthma without complication (CMS/[facility]) Primary hypertension (CMS/[facility]) Unspecified essential hypertension Type 2 diabetes mellitus with complication, with long-term current use of insulin ([facility]) Class 3 severe obesity with serious comorbidity and body mass index (BMI) of 50.0 to 59.9 in adult, unspecified obesity type Tobacco user Tobacco use disorder Other headache syndrome Malignant neoplasm of cervix uteri, unspecified Other specified disorders of adrenal gland Major depressive disorder, single episode, mild (HCC) ([facility]) Major depressive disorder, single episode, mild 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 exposed Chronic respiratory failure, unspecified whether with hypoxia or hypercapnia Disorder of adrenal gland, unspecified Non-pressure chronic ulcer of other part of right lower leg limited to breakdown of skin ([facility]) Non-recurrent acute suppurative otitis media of left ear without spontaneous rupture of tympanic membrane Primary hypertension ([facility])- Primary Unspecified essential hypertension Insomnia Insomnia, unspecified Type 2 diabetes mellitus with complication, with long-term current use of insulin (CMS/[facility]) Non-seasonal allergic rhinitis, unspecified trigger Type 2 diabetes mellitus with unspecified complications Anxiety and depression ([facility]) Gastro-esophageal reflux disease without esophagitis Edema, unspecified Edema Diabetic polyneuropathy associated with type 2 diabetes mellitus ([facility]) Chronic obstructive pulmonary disease, unspecified Pulmonary emphysema, unspecified emphysema type (CMS/HCC) Bilateral lower extremity edema Tobacco user Tobacco use disorder Hyperpigmentation of skin Other dyschromia Primary hypertension (CMS/HCC)- Primary Unspecified essential hypertension Diabetic polyneuropathy associated with type 2 diabetes mellitus (CMS/[facility]) Pulmonary emphysema, unspecified emphysema type (CMS/HCC) Critical limb ischemia of right lower extremity ([facility]) PAD (peripheral artery disease) ([facility]) Unspecified peripheral vascular disease Gastroesophageal reflux disease, unspecified whether esophagitis present Bilateral lower extremity edema Venous ulcer of right leg ([facility]) Type 2 diabetes mellitus with complication, with long-term current use of insulin ([facility]) Tobacco user Tobacco use disorder Encounter for smoking cessation counseling Kidney stone Calculus of kidney Adrenal mass 1 cm to 4 cm in diameter ([facility]) Radiculopathy, lumbar region Thoracic or lumbosacral neuritis or radiculitis, unspecified Non-seasonal allergic rhinitis, unspecified trigger Type 2 diabetes mellitus with unspecified complications Anxiety and depression ([facility] Primary Morbid (severe) obesity due to excess calories ([facility] Body mass index (BMI) 50.0-59.9, adult ([facility] Malignant neoplasm of cervix uteri, unspecified Diabetic polyneuropathy associated with type 2 diabetes mellitus ([facility] Chronic diastolic heart failure ([facility] Chronic diastolic heart failure Primary hypertension ([facility]) Unspecified essential hypertension 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 Gastroesophageal reflux disease, unspecified whether esophagitis present Bilateral lower extremity edema Type 2 diabetes mellitus with complication, with long-term current use of insulin ([facility] Tobacco user Tobacco use disorder Mixed hyperlipidemia ([facility] Mixed hyperlipidemia Gout, unspecified cause, unspecified chronicity, unspecified site Vitamin deficiency Unspecified vitamin deficiency Gastro-esophageal reflux disease without esophagitis Edema, unspecified Edema Hyperlipidemia, unspecified ([facility] Encounter for smoking cessation counseling Venous ulcer of right leg ([facility] Antibiotic-induced yeast infection Type 2 diabetes mellitus with hyperglycemia, with long-term current use of insulin ([facility] Primary Encounter for dietary consultation Vitamin D deficiency Primary hypertension ([facility]) Unspecified essential hypertension Insulin long-term use ([facility] Encounter for long-term (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 Hyperlipemia, mixed ([facility] Mixed hyperlipidemia Microalbuminuria Proteinuria Class 3 severe obesity due to excess calories with serious comorbidity and body mass index (BMI) of 50.0 to 59.9 in adult documented in this encounter [facility] HealthcareEvaluation note* Diagnosis Obstructive sleep apnea- Primary Obstructive sleep apnea (adult) (pediatric) Pulmonary emphysema, unspecified emphysema type ([facility]) Primary hypertension ([facility] Unspecified essential hypertension Type 2 diabetes mellitus with complication, with long-term current use of insulin ([facility] Anxiety and depression ([facility]) Bilateral lower extremity edema Pulmonary emphysema, unspecified emphysema type ([facility])- Primary Primary hypertension ([facility] Unspecified essential hypertension Class 3 severe obesity [...] chronic obstructive pulmonary disease Anxiety and depression (CMS/[facility]) Edema, unspecified Edema Hyperlipidemia, unspecified (CMS/HCC) Diabetic polyneuropathy associated with type 2 diabetes mellitus (CMS/[facility]) Gout, unspecified cause, unspecified chronicity, unspecified site Non-seasonal allergic rhinitis, unspecified trigger Bilateral lower extremity edema COPD exacerbation ([facility]) Obstructive chronic bronchitis with exacerbation Pulmonary emphysema, unspecified emphysema type (CMS/[facility]) Venous insufficiency Unspecified venous (peripheral) insufficiency Candidiasis of breast COPD exacerbation (CMS/[facility])- Primary Obstructive chronic bronchitis with exacerbation Pulmonary hypertension (CMS/[facility]) Other chronic pulmonary heart diseases Class 3 severe obesity with serious comorbidity and body mass index (BMI) of 50.0 to 59.9 in adult, unspecified obesity type Encounter for subsequent annual wellness visit (AWV) in Medicare patient- Primary Type 2 diabetes mellitus with unspecified complications Pulmonary emphysema, unspecified emphysema type (CMS/[facility]) Moderate persistent asthma without complication (CMS/[facility]) Primary hypertension ([facility]) Unspecified essential hypertension Type 2 diabetes mellitus with complication, with long-term current use of insulin ([facility]) Class 3 severe obesity with serious comorbidity and body mass index (BMI) of 50.0 to 59.9 in adult, unspecified obesity type Tobacco user Tobacco use disorder Other headache syndrome Malignant neoplasm of cervix uteri, unspecified Other specified disorders of adrenal gland Major depressive disorder, single episode, mild (HCC) (CMS/[facility]) Major depressive disorder, single episode, mild 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 exposed Chronic respiratory failure, unspecified whether with hypoxia or hypercapnia Disorder of adrenal gland, unspecified Non-pressure chronic ulcer of other part of right lower leg limited to breakdown of skin (CMS/[facility]) Non-recurrent acute suppurative otitis media of left ear without spontaneous rupture of tympanic membrane Primary hypertension (CMS/[facility])- Primary Unspecified essential hypertension Insomnia Insomnia, unspecified Type 2 diabetes mellitus with complication, with long-term current use of insulin ([facility]) Non-seasonal allergic rhinitis, unspecified trigger Type 2 diabetes mellitus with unspecified complications Anxiety and depression ([facility]) Gastro-esophageal reflux disease without esophagitis Edema, unspecified Edema Diabetic polyneuropathy associated with type 2 diabetes mellitus ([facility]) Chronic obstructive pulmonary disease, unspecified Pulmonary emphysema, unspecified emphysema type ([facility]) Bilateral lower extremity edema Tobacco user Tobacco use disorder Hyperpigmentation of skin Other dyschromia Primary hypertension ([facility])- Primary Unspecified essential hypertension Diabetic polyneuropathy associated with type 2 diabetes mellitus ([facility]) Pulmonary emphysema, unspecified emphysema type ([facility]) Critical limb ischemia of right lower extremity ([facility]) PAD (peripheral artery disease) ([facility] Unspecified peripheral vascular disease Gastroesophageal reflux disease, unspecified whether esophagitis present Bilateral lower extremity edema Venous ulcer of right leg ([facility]) Type 2 diabetes mellitus with complication, with long-term current use of insulin ([facility]) Tobacco user Tobacco use disorder Encounter for smoking cessation counseling Kidney stone Calculus of kidney Adrenal mass 1 cm to 4 cm in diameter ([facility]) Radiculopathy, lumbar region Thoracic or lumbosacral neuritis or radiculitis, unspecified Non-seasonal allergic rhinitis, unspecified trigger Type 2 diabetes mellitus with unspecified complications Anxiety and depression ([facility])- Primary Morbid (severe) obesity due to excess calories ([facility]) Body mass index (BMI) 50.0-59.9, adult ([facility]) Malignant neoplasm of cervix uteri, unspecified Diabetic polyneuropathy associated with type 2 diabetes mellitus ([facility]) Chronic diastolic heart failure ([facility]) Chronic diastolic heart failure Primary hypertension (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) Tobacco user Tobacco use disorder Mixed hyperlipidemia ([facility]) Mixed hyperlipidemia Gout, unspecified cause, unspecified chronicity, unspecified site Vitamin deficiency Unspecified vitamin deficiency Gastro-esophageal reflux disease without esophagitis Edema, unspecified Edema Hyperlipidemia, unspecified [place] Encounter for smoking cessation counseling Venous ulcer of right leg ([facility]) Antibiotic-induced yeast infection Chronic obstructive pulmonary disease, unspecified documented in this encounter [facility] HealthcareEvaluation note* Diagnosis Obstructive sleep apnea- Primary Obstructive sleep apnea (adult) (pediatric) Pulmonary emphysema, unspecified emphysema type ([facility]) Primary hypertension ([facility]) Unspecified essential hypertension Type 2 diabetes mellitus with complication, with long-term current use of insulin ([facility]) Anxiety and depression ([facility]) Bilateral lower extremity edema Pulmonary emphysema, unspecified emphysema type ([facility])- Primary Primary hypertension ([facility]) Unspecified essential hypertension Class 3 severe obesity with serious comorbidity and body mass index (BMI) of 50.0 to 59.9 in adult, unspecified obesity type Obstructive sleep apnea Obstructive sleep apnea (adult) (pediatric) Pulmonary hypertension ([facility]) Other chronic pulmonary heart diseases Tobacco user Tobacco use disorder Cardiomegaly Primary hypertension ([facility])- Primary Unspecified essential hypertension Gastroesophageal reflux disease, unspecified whether esophagitis present Type 2 diabetes mellitus with complication, with long-term current use of insulin ([facility]) Mixed hyperlipidemia ([facility]) Mixed hyperlipidemia Tobacco user Tobacco use disorder Encounter for screening mammogram for malignant neoplasm of breast Chronic obstructive pulmonary disease, unspecified Other specified chronic obstructive pulmonary disease Anxiety and depression ([facility]) Edema, unspecified Edema Hyperlipidemia, unspecified ([facility]) Diabetic polyneuropathy associated with type 2 diabetes mellitus ([facility]) Gout, unspecified cause, unspecified chronicity, unspecified site Non-seasonal allergic rhinitis, unspecified trigger Bilateral lower extremity edema COPD exacerbation ([facility]) Obstructive chronic bronchitis with exacerbation Pulmonary emphysema, unspecified emphysema type ([facility]) Venous insufficiency Unspecified venous (peripheral) insufficiency Candidiasis of breast COPD exacerbation ([facility])- Primary Obstructive chronic bronchitis with exacerbation Pulmonary hypertension ([facility]) Other chronic pulmonary heart diseases Class 3 severe obesity with serious comorbidity and body mass index (BMI) of 50.0 to 59.9 in adult, unspecified obesity type Encounter for subsequent annual wellness visit (AWV) in Medicare patient- Primary Type 2 diabetes mellitus with unspecified complications Pulmonary emphysema, unspecified emphysema type ([facility]) Moderate persistent asthma without complication ([facility]) Primary hypertension ([facility]) Unspecified essential hypertension Type 2 diabetes mellitus with complication, with long-term current use of insulin ([facility]) Class 3 severe obesity with serious comorbidity and body mass index (BMI) of 50.0 to 59.9 in adult, unspecified obesity type Tobacco user Tobacco use disorder Other headache syndrome Malignant neoplasm of cervix uteri, unspecified Other specified disorders of adrenal gland Major depressive disorder, single episode, mild (HCC) ([facility]) Major depressive disorder, single episode, mild 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 exposed Chronic respiratory failure, unspecified whether with hypoxia or hypercapnia Disorder of adrenal gland, unspecified Non-pressure chronic ulcer of other part of right lower leg limited to breakdown of skin ([facility]) Non-recurrent acute suppurative otitis media of left ear without spontaneous rupture of tympanic membrane Primary hypertension ([facility])- Primary Unspecified essential hypertension Insomnia Insomnia, unspecified Type 2 diabetes mellitus with complication, with long-term current use of insulin ([facility]) Non-seasonal allergic rhinitis, unspecified trigger Type 2 diabetes mellitus with unspecified complications Anxiety and depression ([facility]) Gastro-esophageal reflux disease without esophagitis Edema, unspecified Edema Diabetic polyneuropathy associated with type 2 diabetes mellitus ([facility]) Chronic obstructive pulmonary disease, unspecified Pulmonary emphysema, unspecified emphysema type ([facility]) Bilateral lower extremity edema Tobacco user Tobacco use disorder Hyperpigmentation of skin Other dyschromia Primary hypertension ([facility])- Primary Unspecified essential hypertension Diabetic polyneuropathy associated with type 2 diabetes mellitus ([facility]) Pulmonary emphysema, unspecified emphysema type ([facility]) Critical limb ischemia of right lower extremity ([facility]) PAD (peripheral artery disease) ([facility]) Unspecified peripheral vascular disease Gastroesophageal reflux disease, unspecified whether esophagitis present Bilateral lower extremity edema Venous ulcer of right leg ([facility]) Type 2 diabetes mellitus with complication, with long-term current use of insulin ([facility]) Tobacco user Tobacco use disorder Encounter for smoking cessation counseling Kidney stone Calculus of kidney Adrenal mass 1 cm to 4 cm in diameter ([facility]) Radiculopathy, lumbar region Thoracic or lumbosacral neuritis or radiculitis, unspecified Non-seasonal allergic rhinitis, unspecified trigger Type 2 diabetes mellitus with unspecified complications Anxiety and depression ([facility])- Primary Morbid (severe) obesity due to excess calories ([facility]) Body mass index (BMI) 50.0-59.9, adult ([facility]) Malignant neoplasm of cervix uteri, unspecified Diabetic polyneuropathy associated with type 2 diabetes mellitus ([facility]) Chronic diastolic heart failure ([facility]) Chronic diastolic heart failure Primary hypertension (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) Tobacco user Tobacco use disorder Mixed hyperlipidemia ([facility]) Mixed hyperlipidemia Gout, unspecified cause, unspecified chronicity, unspecified site Vitamin deficiency Unspecified vitamin deficiency Gastro-esophageal reflux disease without esophagitis Edema, unspecified Edema Hyperlipidemia, unspecified ([facility]) Encounter for smoking cessation counseling Venous ulcer of right leg ([facility]) Antibiotic-induced yeast infection Primary hypertension ([facility] Primary Unspecified essential hypertension Diabetic polyneuropathy associated with type 2 diabetes mellitus ([facility]) Chronic diastolic heart failure ([facility]) Chronic diastolic heart failure Bilateral lower extremity edema Morbid (severe) obesity due to excess calories ([facility]) Type 2 diabetes mellitus with complication, with long-term current use of insulin ([facility]) Anxiety and depression ([facility] Cigarette nicotine dependence without complication Encounter for screening mammogram for malignant neoplasm of breast Insomnia Insomnia, unspecified Non-seasonal allergic rhinitis, unspecified trigger Type 2 diabetes mellitus with unspecified complications Vitamin D deficiency, unspecified Gastro-esophageal reflux disease without esophagitis PAD (peripheral artery disease) ([facility]) Unspecified peripheral vascular disease Gastroesophageal reflux disease, unspecified whether esophagitis present Venous ulcer of right leg ([facility]) documented in this encounter [facility] HealthcareHistory [...] History sepsis 2011 Hospitalization History SEE ABOVE Ygle Other Hospital course Narrative No data available for this section [facility] [employer] progress note No data available for this section [facility] reason for referral (narrative) , Referral to Dr. Cortés Referred by: Elbert ARAUZ MD 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 Summary Purpose Family History No Family History Records FoundNo Family History Records FoundNo Family History Records FoundNo Family History Records Found No data available for this section No Family History Records FoundNo Family History Records Found Additional Source Comments INFORMATION SOURCE (unrecogn ized section and content) DATE CREATED AUTHOR 10/30/2019 [facility] DATE CREATED AUTHOR AUTHOR'S ORGANIZ ATION 09/15/2020 [facility] DATE CREATED AUTHOR AUTHOR'S ORGANIZ ATION 12/19/2022 [facility] DATE CREATED AUTHOR AUTHOR'S ORGANIZ ATION 06/03/2024 [facility] DATE CREATED AUTHOR AUTHOR'S ORGANIZ ATION 10/23/2024 [facility] DATE CREATED AUTHOR AUTHOR'S ORGANIZ ATION 10/28/2024 [facility] Special[facility] EPIC Care Team (unrecognized sect ion and content) Instrumentation And Controls Technician Relationship Specialty Start Date End Date Ty Amin MD PCP - General Family Medicine 01/05/23 Instrumentation And Controls Technician Relationship Specialty Start Date End Date Ty Amin MD PCP - General Family Medicine 01/05/23 Instrumentation And Controls Technician Relationship Specialty Start Date End Date Ty Amin MD [address] [place] [address] PCP - General Family Medicine 09/20/23 Mckayla Blas NP [address] [place] [address] PCP - [facility] 09/07/23 09/05/90 Mckayla Blas NP [address] [place] [address] Nurse Practitioner Family Medicine 09/20/23 Instrumentation And Controls Technician Relationship Specialty Start Date End Date Ty Amin MD [address] [place] [phone] PCP - General Family Medicine 09/20/23 Mckayla Blas NP [address] [place] [address] PCP - [facility] 09/07/23 09/05/90 Mckayla Blas NP [address] [place] [address] Nurse Practitioner Family Medicine 09/20/23 Instrumentation And Controls Technician Relationship Specialty Start Date End Date Ty Amin MD [address] [place] [address] PCP - General Family Medicine 09/20/23 Mckayla Blas NP [address] [place] [address] [facility] 09/07/23 09/05/90 Mckayla Blas NP [address] [place] [address] Nurse Practitioner Family Medicine 09/20/23 Instrumentation And Controls Technician Relationship Specialty Start Date End Date Ty Amin MD [address] [place] [address] PCP - General Family Medicine 09/20/23 Mckayla Blas NP [address] [place] [address] PCP - [facility] 09/07/23 09/05/90 Mckayla Blas NP [address] [place] [address] Nurse Practitioner Family Medicine 09/20/23 Instrumentation And Controls Technician Relationship Specialty Start Date End Date Ty Amin MD [address] [place] [phone] PCP - General Family Medicine 09/20/23 Mckayla Blas NP [address] [place] [address] [facility] 09/07/23 09/05/90 Mckayla Blas NP [address] [place] [address] Nurse Practitioner Family Medicine 09/20/23 Instrumentation And Controls Technician Relationship Specialty Start Date End Date Ty Amin MD [address] [place] [address] PCP - General Family Medicine 09/20/23 Mckayla Blas NP [address] [place] [address] PCP - [facility] 09/07/23 09/05/90 Mckayla Blas NP [address] [place] [address] Nurse Practitioner Family Medicine 09/20/23 Instrumentation And Controls Technician Relationship Specialty Start Date End Date Ty Amin MD [address] [place] [phone] PCP - General Family Medicine 09/20/23 Mckayla Blas NP [address] [place] [address] PCP - [facility] 09/07/23 09/05/90 Mckayla Blas NP [address] [place] [address] Nurse Practitioner Family Medicine 09/20/23 Instrumentation And Controls Technician Relationship Specialty Start Date End Date Ty Amin MD [address] [place] [address] PCP - General Family Medicine 09/20/23 Mckayla Blas NP [address] [place] [address] [facility] 09/07/23 09/05/90 Mckayla Blas NP [address] [place] [address] Nurse Practitioner Family Medicine 09/20/23 Instrumentation And Controls Technician Relationship Specialty Start Date End Date Ty Amin MD [address] [place] [address] PCP - General Family Medicine 09/20/23 Mckayla Blas NP [address] [place] [address] PCP - [facility] 09/07/23 09/05/90 Mckayla Blas NP [address] [place] [address] Nurse Practitioner Family Medicine 09/20/23 Instrumentation And Controls Technician Relationship Specialty Start Date End Date Ty Amin MD [address] [place] [phone] PCP - General Family Medicine 09/20/23 Mckayla Blas NP [address] [place] [address] [facility] 09/07/23 09/05/90 Mckayla Blas NP [address] [place] [address] Nurse Practitioner Family Medicine 09/20/23 Instrumentation And Controls Technician Relationship Specialty Start Date End Date Ty Amin MD [address] [place] [address] PCP - General Family Medicine 09/20/23 Mckayla Blas NP [address] [place] [address] PCP - [facility] 09/07/23 09/05/90 Mckayla Blas NP [address] [place] [address] Nurse Practitioner Family Medicine 09/20/23 Instrumentation And Controls Technician Relationship Specialty Start Date End Date Ty Amin MD [address] [place] [address] PCP - General Family Medicine 09/20/23 Mckayla Blas NP [address] [place] [address] PCP - [facility] 09/07/23 09/05/90 Mckayla Blas NP [address] [place] [address] Nurse Practitioner Family Medicine 09/20/23 Instrumentation And Controls Technician Relationship Specialty Start Date End Date Ty Amin MD [address] [place] [address] PCP - General Family Medicine 09/20/23 Mckayla Blas NP [address] [place] [address] [facility] 09/07/23 09/05/90 Mckayla Blas NP [address] [place] [address] Nurse Practitioner Family Medicine 09/20/23 Instrumentation And Controls Technician Relationship Specialty Start Date End Date Ty Amin MD [address] [place] [address] PCP - General Family Medicine 09/20/23 Mckayla Blas NP [address] [place] [address] PCP - [facility] 09/07/23 09/05/90 Mckayla Blas NP [address] [place] [address] Nurse Practitioner Family Medicine 09/20/23 Instrumentation And Controls Technician Relationship Specialty Start Date End Date Ty Amin MD [address] [place] [address] PCP - General Family Medicine 09/20/23 Mckayla Blas NP [address] [place] [address] [facility] 09/07/23 09/05/90 Mckayla Blas NP [address] [place] [address] Nurse Practitioner Family Medicine 09/20/23 Instrumentation And Controls Technician Relationship Specialty Start Date End Date Ty Amin MD [address] [place] [address] PCP - General Family Medicine 09/20/23 Mckayla Blas NP [address] [place] [address] PCP - [facility] 09/07/23 09/05/90 Mckayla Blas NP [address] [place] [address] Nurse Practitioner Family Medicine 09/20/23 REASON FOR [...] BE BASED ON THE PRIMARY CLINICAL RECORDS. [employer] provides no warranty or guarantee of the accuracy or completeness of information in this document.
[2024-12-04 16:54] LABS: Basophils Absolute Auto 0.1 10^3/uL (0.0-0.1); Basophils Percent Auto 0.2 % (0.2-2.0); Eosinophils Absolute Auto 0.1 10^3/uL (0.0-0.7); Eosinophils Percent Auto 0.2 % (0.9-7.0); Hemoglobin 16.5 g/dL (12.0-16.0); Immature Granulocytes Pct Auto 0.5 % (0.0-0.5); Lymphocytes Absolute Auto 1.5 10^3/uL (1.2-3.8); Lymphocytes Percent Auto 7.3 % (20.5-60.0); Mean Corpuscular HGB Conc 32.4 g/dL (29.9-35.2); Mean Corpuscular Hemoglobin 29.4 pg (26.7-34.0); Mean Corpuscular Volume 90.7 fL (81.0-99.0); Mean Platelet Volume 12.4 fL (9.5-13.5); Monocytes Absolute Auto 0.8 10^3/uL (0.3-0.8); Monocytes Percent Auto 4.1 % (1.7-12.0); Neutrophils Absolute Auto 18.1 10^3/uL (1.4-6.5); Neutrophils Percent Auto 87.7 % (43.0-75.0); Platelet Count 118 10^3/uL (150-450); Red Blood Count 5.62 10^6/uL (4.20-5.40); Red Cell Distribution Width 15.4 % (11.0-15.0); White Blood Count 20.7 10^3/uL (4.0-11.0)
[2024-12-04 17:02] LABS: Anion Gap 12.4; BUN Creatinine Ratio 18.1; Calcium 8.8 mg/dL (8.5-10.1); Carbon Dioxide 31.4 mmol/L (21.0-32.0); Chloride 101 mmol/L (98-107); Estimated GFR (African America >60 (>=60 mL/min/1.73m^2); Estimated GFR (Non-African Ame >60 (>=60 mL/min/1.73m^2); Glucose 231 mg/dL (74-106); Potassium 4.8 mmol/L (3.5-5.1); Sodium 140 mmol/L (136-145)
[2024-12-04 17:05] LABS: Internal Control Within Normal Limits; SARS-CoV-2 Ag NEGATIVE (NEGATIVE)
[2024-12-04 17:21] LABS: Bilirubin Urine NEGATIVE (NEGATIVE); Blood Urine NEGATIVE (NEGATIVE); Clarity Urine CLEAR (CLEAR); Color Urine YELLOW (YELLOW); Glucose Urine UA NEGATIVE (NEGATIVE); Ketones Urine NEGATIVE (NEGATIVE); Leukocyte Esterase Urine NEGATIVE (NEGATIVE); Nitrite Urine NEGATIVE (NEGATIVE); Protein Urine 100 mg/dL (NEG/TRACE); pH Urine 6.5 (5.0-9.0)
[2024-12-04 17:28] LABS: Bacteria Urine TRACE #/HPF (NONE SEEN); Cast Seen? NONE SEEN #/LPF (NONE SEEN); Crystals Seen? None Seen #/HPF (None Seen); Mucus Urine SMALL (NONE SEEN); RBC Urine 0-2 #/HPF (0-2); Squamous Epithelial Cell Urine FEW #/LPF (NONE/RARE); Urine Culture Indicated NO; WBC Urine NONE SEEN #/HPF (NONE SEEN)
[2024-12-04 17:33] LABS: Lactate/Lactic Acid 1.8 mmol/L (0.4-2.0)
[2024-12-04] MEDS: PIPERACILLIN SODIUM/TAZOBACTAM 3.375 GM in 0.9 % SODIUM CHLORIDE 50 ML IV (19:22)
--- NOTE | 2024-12-04 19:44 | ED.GENADUL1 ---
HPI HPI - General Adult General Chief complaint: Altered Mental Status Stated complaint: UNRESPONSIVE Time Seen by Provider: 12/04/24 16:30 Source: patient Mode of arrival: ambulance Limitations: no limitations History of Present Illness HPI narrative: The patient is a 54-year-old female with a history of chronic pain, group B strep bacteria, hypertension, diabetes mellitus, and COPD who presents to the emergency department feeling weak. Her assessment in the emergency department revealed that the patient had a fever. While here she was found to have a white blood cell count that was elevated at 20,000. The patient's lactic acid was 1.8. The patient has 2 blood cultures pending. While trying to look for source, the was started on Zosyn. The patient had a chest x-ray that revealed no evidence of any infectious etiology. Her urine was negative for evidence of infection. The patient did have a CT scan of the abdomen and pelvis that was interpreted that revealed no evidence of any acute abdominal pelvic process. The patient does have a healing wound to her right lower extremity but it does not appear to be infected there is degranulation tissue present there is no evidence of purulence erythematous warmth or induration present. My colleague had indicated that he did not feel that the source was identified. But, due to the patient's symptomology, white blood cell count and fever I does feel that the patient would benefit from staying in the hospital. 20:04 I had an opportunity to speak with the patient and her family. I reiterated the history to make sure that I did not misunderstand something from the previous physician and I had correctly interpreted everything. I went over all of the laboratories and imaging that Dr. Arora had performed. In addition I did reevaluate the patient myself to make sure that the patient did not have any meningeal signs. She did not have a headache. She did not have any skin lesions that look suspicious. However, she does have a dusky color to her feet but there with brisk capillary refill warm and she reports that is her normal color. I did speak to Petty the hospitalist. She did agree to accept the patient as an OBV admission to see if there is any other symptoms that present themselves. The patient would really like to go home because she has something to do with her sister tomorrow and then there is a birthday celebration on the weekend. I did indicate to the patient that she only qualifies for an OPV and unless nothing else shows up that she would likely be discharged tomorrow. But at this time, the patient has a very elevated white blood cell count that is not attributed to any particular source and she has not been on any steroid therapy for her COPD so at this time I do agree with the initial physician that the patient should probably be admitted. Patient does consent to admission. Diagnosis: Fever of unknown origin Leukocytosis Increased BMI greater than 35 Related Data Home Medications ?Medication ?Instructions ?Recorded ?Confirmed acetaminophen 500 mg capsule 1,000 mg PO Q6H PRN fever or pain 03/20/23 12/04/24 amitriptyline 25 mg tablet 25 mg PO DAILY 03/20/23 12/04/24 aspirin 81 mg tablet,delayed 81 mg PO DAILY 03/20/23 12/04/24 release (Adult Aspirin Regimen) budesonide-formoterol HFA 160 2 inh inhalation BID 03/20/23 12/04/24 mcg-4.5 mcg/actuation aerosol inhaler (Symbicort) furosemide 40 mg tablet 40 mg PO DAILY 03/20/23 12/04/24 insulin aspart U-100 100 unit/mL 1 sliding scale dose subcut 03/20/23 12/04/24 (3 mL) subcutaneous pen (Novolog USEASDIRECTD FlexPen U-100 Insulin aspart) insulin glargine 100 unit/mL 58 unit subcut BID 03/20/23 12/04/24 subcutaneous solution (Lantus U-100 Insulin) lisinopril 20 mg tablet 20 mg PO DAILY 03/20/23 12/04/24 omeprazole 20 mg capsule,delayed 20 mg PO DAILY 03/20/23 12/04/24 release pregabalin 300 mg capsule 300 mg PO Q12H 03/20/23 12/04/24 dapagliflozin propanediol 10 mg 10 mg PO .QD 09/10/23 12/04/24 tablet ergocalciferol (vitamin D2) 1,250 50,000 unit PO QWEEK 09/10/23 12/04/24 mcg (50,000 unit) capsule potassium chloride 10 mEq 10 meq PO .QD 09/10/23 12/04/24 capsule,extended release simvastatin 10 mg tablet 10 mg PO QAM 09/10/23 12/04/24 baclofen 10 mg tablet 10 mg PO TID 06/24/24 12/04/24 Previous Rx's ?Medication ?Instructions ?Recorded duloxetine 60 mg capsule,delayed 60 mg PO BID #60 caps 04/05/23 release hydralazine 25 mg tablet 25 mg PO BID #60 tabs 09/13/23 oseltamivir 75 mg capsule 75 mg PO BID #6 caps 09/13/23 hydrocodone 5 mg-acetaminophen 325 1 tab PO TID PRN pain #80 tabs 06/30/24 mg tablet hydrocodone 5 mg-acetaminophen 325 See Rx Instructions .Route 09/09/24 mg tablet .COMPLEX PRN pain #80 tabs Allergies Allergy/AdvReac Type Severity Reaction Status Date / Time No Known Drug Allergies Allergy Verified 06/10/24 08:21 Opioid HPI Opioid Management Most Recent Opioid Data: Last Pain Scale 6 06/10/24, 08:25 Last Pain Intensity 0 09/12/23, 11:19 Last MAR Pain Assessment Today, 16:45 [facility] Medical History COPD exacerbation ?J44.1 - Chronic obstructive pulmonary disease with (acute) exacerbation (ICD-10) Influenza A ?J10.1 - Influenza due to other identified influenza virus with other respiratory manifestations (ICD-10) Hypoxia ?R09.02 - Hypoxemia (ICD-10) Hypertension ?I10 - Essential (primary) hypertension (ICD-10) Obesity ?E66.9 - Obesity, unspecified (ICD-10) Amputation toe ?S98.139A - Complete traumatic amputation of one unspecified lesser toe, initial encounter (ICD-10) Neuropathy ?G62.9 - Polyneuropathy, unspecified (ICD-10) Acid reflux ?K21.9 - Gastro-esophageal reflux disease without esophagitis (ICD-10) Diabetes ?E11.9 - Type 2 diabetes mellitus without complications (ICD-10) COPD (chronic obstructive pulmonary disease) ?J44.9 - Chronic obstructive pulmonary disease, unspecified (ICD-10) Asthma ?J45.909 - Unspecified asthma, uncomplicated (ICD-10) High cholesterol ?E78.00 - Pure hypercholesterolemia, unspecified (ICD-10) Surgical History History of hammertoe correction ?Z98.890 - Other specified postprocedural states (ICD-10) ?Z87.39 - Personal history of other diseases of the musculoskeletal system and connective tissue (ICD-10) Hx of cholecystectomy ?Z90.49 - Acquired absence of other specified parts of digestive tract (ICD-10) History of hysterectomy ?Z90.710 - Acquired absence of both cervix and uterus (ICD-10) Social History Within the past year, how often did you have a drink containing alcohol: never Score interpretation: A score less than 3 is consistent with normal alcohol consumption. Smoking status: Former smoker Highest level of school completed/degree received: Associate degree: occupational, technical, vocational program Little interest or pleasure in doing things: not at all Feeling down, depressed, or hopeless: not at all Exam Constitutional Vital Signs, click to edit/add: Last Vital Signs Temp 98.2 F 12/04/24 19:26 Pulse 90 12/04/24 19:26 Resp 16 12/04/24 19:26 BP 125/69 12/04/24 19:15 Pulse Ox 96 12/04/24 19:26 O2 Del Method Nasal Cannula 12/04/24 19:26 O2 Flow Rate 4 12/04/24 19:26 Course Vital Signs Vital signs: Vital Signs Blood Pressure 151/73 H 12/04/24 16:29 Temperature 98.2 F 12/04/24 19:26 Pulse Rate 90 12/04/24 19:26 Respiratory Rate 16 12/04/24 19:26 Blood Pressure 125/69 12/04/24 19:15 Pulse Oximetry 96 12/04/24 19:26 Oxygen Delivery Method Nasal Cannula 12/04/24 19:26 Oxygen Delivery Flow Rate 4 12/04/24 19:26 Medical Decision Making Lab Data Labs: Lab Results 12/04/24 12/04/24 Range/Units 16:44 16:52 WBC 20.7 H (4.0-11.0) 10^3/uL RBC 5.62 H (4.20-5.40) 10^6/uL Hgb 16.5 H (12.0-16.0) g/dL Hct 51.0 H (36.0-48.0) % MCV 90.7 (81.0-99.0) fL MCH 29.4 (26.7-34.0) pg MCHC 32.4 (29.9-35.2) g/dL RDW 15.4 H (11.0-15.0) % Plt Count 118 L (150-450) 10^3/uL MPV 12.4 (9.5-13.5) fL Neut % (Auto) 87.7 H (43.0-75.0) % Lymph % (Auto) 7.3 L (20.5-60.0) % [place] % (Auto) 4.1 (1.7-12.0) % Eos % (Auto) 0.2 L (0.9-7.0) % Baso % (Auto) 0.2 (0.2-2.0) % Neut # (Auto) 18.1 H (1.4-6.5) 10^3/uL Lymph # (Auto) 1.5 (1.2-3.8) 10^3/uL [place] # (Auto) 0.8 (0.3-0.8) 10^3/uL Eos # (Auto) 0.1 (0.0-0.7) 10^3/uL Baso # (Auto) 0.1 (0.0-0.1) 10^3/uL Abs Immat Gran (auto) 0.10 H (0.00-0.03) 10^3/uL Imm/Tot Granulo (auto) 0.5 (0.0-0.5) % Sodium 140 (136-145) mmol/L Potassium 4.8 (3.5-5.1) mmol/L Chloride 101 (98-107) mmol/L Carbon Dioxide 31.4 (21.0-32.0) mmol/L Anion Gap 12.4 BUN 15.0 (7.0-18.0) mg/dL Creatinine 0.83 (0.55-1.02) mg/dL Est GFR ( Amer) >60 (>=60 mL/min/1.73m^2) Est GFR (Non-Af Amer) >60 (>=60 mL/min/1.73m^2) BUN/Creatinine Ratio 18.1 Glucose 231 H (74-106) mg/dL Lactate 1.8 (0.4-2.0) mmol/L Calcium 8.8 (8.5-10.1) mg/dL Urine Color Yellow (YELLOW) Urine Clarity Clear (CLEAR) Urine pH 6.5 (5.0-9.0) Ur Specific [place] 1.020 (1.005-1.025) Urine Protein 100 A (NEG/TRACE) mg/dL Urine Glucose (UA) Negative (NEGATIVE) mg/dL Urine Ketones Negative (NEGATIVE) mg/dL Urine Occult Blood Negative (NEGATIVE) Urine Nitrite Negative (NEGATIVE) Urine Bilirubin Negative (NEGATIVE) Urine Urobilinogen 1.0 (0.2-1.0) EU/dL Ur Leukocyte Esterase Negative (NEGATIVE) Urine RBC 0-2 (0-2) #/HPF Urine WBC None seen (NONE SEEN) #/HPF Ur Squamous Epith Cells Few A (NONE/RARE) #/LPF Urine Crystals None seen (None Seen) #/HPF Urine Bacteria Trace A (NONE SEEN) #/HPF Urine Casts None seen (NONE SEEN) #/LPF Urine Mucus Small A (NONE SEEN) Ur Culture Indicated? No SARS-CoV-2 Ag (CV2AG) Negative (NEGATIVE) Discharge Plan Discharge Patient Disposition: Still a Patient
--- NOTE | 2024-12-04 20:54 | PC.NURSE ---
Attempted to call report . No answer at this time.
--- OUTSIDE RECORDS SUMMARY | 2024-12-04 21:43 | XMS_ITS | CCD ---
Author Organization [facility] Care Team Providers Care Shipfitter Name Role Phone James Benavidez Primary Care Provider JAMES BENAVIDEZ Primary Care Unavailable SHENRENATOEANISHAHAL Admitting Unavailable SHENRENATOE VITHAL Attending Unavailable AICHHOLZ, MCKAYLA Primary Care Unavailable AICHHOLZ, MCKAYLA Referring Unavailable AICHHOLZ, MCKAYLA J Primary Care Physician Tico, Stephanie Unavailable OLE RAMIREZ Attending Unavailable OLE RAMIREZ Consulting Unavailable AICHHOLZ, FLATBED OWNER OPERATOR MCKAYLA Primary Care Unavailable OLE RAMIREZ Admitting Unavailable ANTONY SHRESTHA Consulting Unavailable ALONDRA ., UMBERTO Admitting Unavailable ALONDRA ., UMBERTO Attending Unavailable AICHHOLZ, FLATBED OWNER OPERATOR MCKAYLA Primary Care Unavailable AFSANEH Loera, DR BOLANOS Consulting Unavailable MARYANNE POWER Consulting Unavailable GLENN KERR Consulting Unavailable YOMAIRA KERR Consulting Unavailable HATTIE GOFF Consulting Unavailable ALONDRA ., UMBERTO Consulting Unavailable TICO, STEPHANIE Attending Unavailable TICO, STEPHANIE Consulting Unavailable AICHHOLZ, FLATBED OWNER OPERATOR MCKAYLA Primary Care Unavailable TICO, STEPHANIE Admitting Unavailable ARAUZ ., DR DUMONT Admitting Unavailable AICHHOLZ, FLATBED OWNER OPERATOR MCKAYLA Primary Care Unavailable ARAUZ ., DR DUMONT Attending Unavailable ARAUZ ., DR DUMONT Consulting Unavailable COLLIN HUERTAS Consulting Unavailable CECILIA KAUFMAN Admitting Unavailable CECILIA KAUFMAN Attending Unavailable AICHHOLZ, FLATBED OWNER OPERATOR MCKAYLA Primary Care Unavailable RAFAEL GONGORA Attending Unavailable RAFAEL GONGORA Admitting Unavailable AICHHOLZ, FLATBED OWNER OPERATOR MCKAYLA Primary Care Unavailable AICHHOLZ, FLATBED OWNER OPERATOR MCKAYLA Admitting Unavailable AICHHOLZ, FLATBED OWNER OPERATOR MCKAYLA Primary Care Unavailable AICHHOLZ, FLATBED OWNER OPERATOR MCKAYLA Attending Unavailable AICHHOLZ, FLATBED OWNER OPERATOR MCKAYLA Consulting Unavailable LAKSHMIPATHY ., NARENDRANATH Attending Anette vailable LAKSHMIPATHY ., NARENDRANATH Consulting Anette vailable LAKSHMIPATHY ., NARENDRANATH Admitting Anette vailable AICHHOLZ, FLATBED OWNER OPERATOR MCKAYLA Primary Care Unavailable VALENZUELA ., GIL Consulting Unavailable MORTENSEN ., DR CHAPARRO Aguillon Attending Unavailable MORTENSEN ., DR CHAPARRO Aguillon Admitting Unavailable AICHHOLZ, FLATBED OWNER OPERATOR MCKAYLA Primary Care Unavailable VALENZUELA ., GIL Consulting Unavailable MORTENSEN ., DR CHAPARRO Aguillon Admitting Unavailable AICHHOLZ, FLATBED OWNER OPERATOR MCKAYLA Primary Care Unavailable MORTENSEN ., DR CHAPARRO Aguillon Attending Unavailable HALKER ., SUBHASH Consulting Unavailable LAKSHMIPATHY ., NARENDRANATH Admitting Anette vailable LAKSHMIPATHY ., NARENDRANATH Attending Anette vailable AICHHOLZ, FLATBED OWNER OPERATOR MCKAYLA Primary Care Unavailable MORTENSEN ., DR CHAPARRO Aguillon Attending Unavailable MORTENSEN ., DR CHAPARRO Aguillon Admitting Unavailable VALENZUELA ., GIL Consulting Unavailable AICHHOLZ, FLATBED OWNER OPERATOR MCKAYLA Primary Care Unavailable VALENZUELA ., GIL Consulting Unavailable MORTENSEN ., DR CHAPARRO Aguillon Attending Unavailable MORTENSEN ., DR CHAPARRO Aguillon Admitting Unavailable AICHHOLZ, FLATBED OWNER OPERATOR MCKAYLA Primary Care Unavailable HATTIE BRODERICK Attending Unavailable HATTIE BRODERICK Admitting Unavailable AICHHOLZ, FLATBED OWNER OPERATOR MCKAYLA Primary Care Unavailable AICHHOLZ, FLATBED OWNER OPERATOR MCKAYLA Admitting Unavailable AICHHOLZ, FLATBED OWNER OPERATOR MCKAYLA Consulting Unavailable AICHHOLZ, FLATBED OWNER OPERATOR MCKAYLA Primary Care Unavailable AICHHOLZ, FLATBED OWNER OPERATOR MCKAYLA Attending Unavailable AICHHOLZ, FLATBED OWNER OPERATOR MCKAYLA Primary Care Unavailable MISC, DR LESLIE Admitting Unavailable MISC, DR LESLIE Attending Unavailable MISC, DR LESLIE Consulting Unavailable DIAB ., MARIANO Admitting Unavailable DIAB ., MARIANO Attending Unavailable DIAB ., MARIANO Consulting Unavailable AICHHOLZ, FLATBED OWNER OPERATOR MCKAYLA Primary Care Unavailable RICCO PICKARD Consulting Unavailable AICHHOLZ, FLATBED OWNER OPERATOR MCKAYLA Admitting Unavailable AICHHOLZ, FLATBED OWNER OPERATOR MCKAYLA Primary Care Unavailable AICHHOLZ, FLATBED OWNER OPERATOR MCKAYLA Attending Unavailable AICHHOLZ, FLATBED OWNER OPERATOR MCKAYLA Consulting Unavailable DR PATRICIA VELOZ Consulting Unavailable TAMLYN ., CECILIA Attending Unavailable BJORNLYN ., CECILIA Admitting Unavailable DR PATRICIA VELOZ Consulting Unavailable AICHHOLZ, FLATBED OWNER OPERATOR MCKAYLA Primary Care Unavailable TAMLYN ., CECILIA Consulting Unavailable FESTUS ., DR CHAPARRO Aguillon Attending Unavailable FESTUS ., DR CHAPARRO Aguillon Consulting Unavailable FESTUS ., DR CHAPARRO Aguillon Admitting Unavailable AICHHOLZ, FLATBED OWNER OPERATOR MCKAYLA Primary Care Unavailable HATTIE BRODERICK Attending Unavailable HATTIE BRODERICK Consulting Unavailable HATTIE BRODERICK Admitting Unavailable AICHHOLZ, FLATBED OWNER OPERATOR MCKAYLA Primary Care Unavailable HATTIE BAUTISTA Unavailable AICHHOLZ, SAYDA MCKAYLA Admitting Unavailable AICHHOLZ, FLATBED OWNER OPERATOR MCKAYLA Attending Unavailable AICHHOLZ, FLATBED OWNER OPERATOR MCKAYLA Consulting Unavailable AICHHOLZ, FLATBED OWNER OPERATOR MCKAYLA Primary Care Unavailable Brennan PHIPPS, Ty Primary Care Provider Brennan PHIPPS, Ty Primary Care Provider Aichholz SCHOOL BUS AIDE, Mckayla Unavailable Aichholz SCHOOL BUS AIDE, Mckayla Unavailable Elbert ARAUZ Attending Unavailable SARAH [...] Medication Allergies] Propensity to adverse reactions (disorder) [facility] [place] Repository Medications Current Medications Medication Drug Class(es) [...] Start Date: 02/06/22 Status: Ordered HYDROcodone-acet aminophen ([place]) 5-325 MG tablet 1 tablet 3 (three) times a day as needed for severe pain. Active take 1 tablet by vandana twice daily as needed [place] 5-325 MG 1 tablet as needed Orally [...] times weekly ergocalciferol (Vitamin D2) 1.25 MG (31506 UT) capsule Indications: Vitamin D deficiency, unspecified Take 1 capsule (1.25 mg) by mouth 2 (two) times a week 24 capsule 1 10/27/2024 01/19/2025 Active Start: 04-06-2024 End: 10-27-2024 take 1 capsule by mouth every week ergocalciferol (Vitamin D2) 1.25 MG (13540 UT) capsule Indications: Vitamin D deficiency, unspecified [...] complication, with long-term current use of insulin ([facility]) Chew 1 tablet (81 mg) Daily [...] 02-06-2022 Chronic Other aftercare (1 source) Other shelter (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 therapy; Translations: [OTH CARE HOME CURRENT DRUG THERAPY] Onset: 12-05-2022 Episodic Other aftercare (1 source) 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 Unclassified (1 source) CARE HOME INJECT NONINSULN ANTIDIAB; Translations: [CARE HOME INJECT NONINSULN ANTIDIAB] Onset: 12-05-2022 Unclassified (3 [...] 36 Regarding lab results from 10/08/2024: MD Mcikie Merritt MA Lipids, ALT AST, and BMP are normal. HbA1c was not performed. Continue current management. LM on patient's VM. Normal [facility] Glucose (Bld) [Mass/Vol]Orde red By: Mica Sauceda on 10-08-2024 Glucose Blood, POC 97 mg/dL [facility] Laboratory - Hematology and Cell countson 10-08-2024 HbA1c (Bld) [Mass fraction] 7.4 % [facility] No Panel InformationOrdered By: Mica Sauceda on 10-08-2024 [facility] TBH UA (CLEAN/CATCH) MICROSC OPIC IF INDICATEon 10-08-2024 BILIRUBIN URINE Negative NEGATIVE [facility] BLOOD URINE Negative NEGATIVE [facility] Clarity (U) CLEAR CLEAR [facility] Color (U) YELLOW YELLOW [facility] GLUCOSE URINE UA Negative NEGATIVE mg/dL [facility] Interpretation and review of laboratory results Abnormal [facility] Ketones Ql (U) Negative NEGATIVE mg/dL [facility] Leukocyte esterase Test strip Ql (U) Negative NEGATIVE [facility] NITRITE URINE Negative NEGATIVE [facility] pH (U) 5.5 [pH] 5.0 - 9.0 [facility] Protein (U) [Mass/Vol] 30 mg/dL Abnormal NEG/TRACE NO [facility] SPECIFIC GRAVITY URINE >=1.030 Abnormal 1.005 - 1.025 [facility] URINE MICROSCOPIC INDICATED YES [facility] UROBILINOGEN URINE 1.0 EU/dL 0.2 - 1.0 EU/dL [facility] ALL CBC WITH AUTO DIFFon BASOPHILS ABSOLUTE AUTO 0.1 [facility] Basophils/100 WBC (Bld) 0.5 % 0.2 - 2.0 % [facility] Eosinophils/100 WBC (Bld) 1.9 % 0.9 - 7.0 % [facility] Erythrocyte distribution width (RBC) [Ratio] 14.6 % 11.0 - 15.0 % [facility] Hematocrit (Bld) [Volume fraction] 50.9 % High 36.0 - 48.0 % [facility] Hemoglobin (Bld) [Mass/Vol] 16.1 g/dL High 12.0 - 16.0 g/dL [facility] IMMATURE GRANULOCYTES ABS AUTO 0.04 High [facility] Immature granulocytes/100 WBC (Bld) 0.3 % 0.0 - 0.5 % [facility] Interpretation and review of laboratory results Abnormal [facility] LYMPHOCYTES ABSOLUTE AUTO 3.2 [facility] Lymphocytes/100 WBC (Bld) 25.1 % 20.5 - 60.0 % [facility] MCH (RBC) [Entitic mass] 29.2 pg 26.7 - 34.0 pg [facility] MCHC (RBC) [Mass/Vol] 31.6 g/dL 29.9 - 35.2 g/dL [facility] MCV (RBC) [Entitic vol] 92.2 fL 81.0 - 99.0 fL [facility] MONOCYTES ABSOLUTE AUTO 0.7 N [facility] Monocytes/100 WBC (Bld) 5.2 % 1.7 - 12.0 % [facility] NEUTROPHILS ABSOLUTE AUTO 8.6 High [facility] Neutrophils/100 WBC (Bld) 67 % 43.0 - 75.0 % [facility] Platelet mean volume (Bld) [Entitic vol] 12.8 fL 9.5 - 13.5 fL [facility] TBH EO # 0.2 [facility] TB PLT 122 Low [facility] TBH RBC 5.52 High [facility] TBH WBC 12.8 High [facility] Office Visiton 08-08-2024 Follow-up visit [id number] GilbertoMitzi Gilberto 1970 F Date Provider Department Center 08/08/2024 [id number] BRIDGES Family History Problem Relation Age of Onset Heart attack Paternal Grandmother Family Status - Relation Status Age at Paternal Grandmother Level of Service:13564 NE OFFICE/OUTPATIENT ESTABLISHED MOD MDM 30 MIN Reason for Visit and Comments: Congestive Heart Failure [127] - Denies chest pain, SOB, and palpitations. Hypertension [795593] Hyperlipidemia [182] LVH [Other] Edema [[id number]] - Denies worsening edema. She sees wound care for RLE ulcer. She was seeing the vein specialists here in town but they are moving to [place] in a few weeks. Normal [facility] Glucose (Bld) [Mass/Vol]Orde red By: Mica Sauceda on 05-27-2024 Glucose Blood, POC 158 mg/dL [facility] - Hematology and Cell countson 05-27-2024 HbA1c (Bld) [Mass fraction] 9.2 % [facility] No Panel InformationOrdered By: Mica Sauceda on 05-27-2024 [facility] CREATININEon 05-12-2024 Creatinine [Mass/Vol] 0.92 mg/dL 0.55 - 1.02 mg/dL [facility] GFR/1.73 sq M.predicted CKD-EPI (S/P/Bld) [Vol rate/Area] >60 >=60 mL/min/1.73m 2 [facility] EGFR-NON AF JORDANIAN >60 >=60 mL/min/1.73m 2 [facility] Office Visiton 11-14-2023 Follow-up visit [id number] Mitzi Macias 1970 F Date Provider Department Center 11/14/2023 BHARAT NICOLE [facility] Family History Problem Relation Age of Onset Heart attack Paternal Grandmother Family Status - Relation Status Age at Paternal Grandmother Level of Service:84003 NE OFFICE/OUTPATIENT NEW LOW MDM 30 MINUTES Normal [facility] CBC AUTO DIFFon 12-06-2022 BASO # 0.0 103/ul Normal 0.0-0.1 [facility] Comment on above: Performed By: #### C BC #### [facility] [address] [address] [address] Ashlie Hills Basophils/100 WBC (Bld) 0.1 % Critically low 0.2-2.0 [facility] Comment on above: Performed By: #### C BC #### [facility] [address] [address] [address] Ashlie Hills EO # 0.0 103/ul Normal 0.0-0.7 [facility] Comment on above: Performed By: #### C BC #### [facility] [address] [place] [address] Dr. Ashlie Hills Eosinophils/100 WBC (Bld) 0.0 % Critically low 0.9-7.0 [facility] Comment on above: Performed By: #### C BC #### [facility] [address] [place] [address] Dr. Ashlie Hills Erythrocyte distribution width (RBC) [Ratio] 14.9 % Normal 11.0-15.0 [facility] Comment on above: Performed By: #### C BC #### [facility] [address] [place] [address] Dr. Ashlie Hills Hematocrit (Bld) [Volume fraction] 46.2 % Normal 36.0-48.0 [facility] Comment on above: Performed By: #### C BC #### [facility] [address] [place] [address] Dr. Ashlie Hills Hemoglobin (Bld) [Mass/Vol] 14.7 g/dL Normal 12.0-16.0 [facility] Comment on above: Performed By: #### C BC #### [facility] [address] [place] [address] Dr. Ashlie Hills IG # 0.06 10e3/ul Critically high 0.00-0.03 [facility] Comment on above: Performed By: #### C BC #### [facility] [address] [place] [address] Dr. Ashlie Hills IG % 0.4 % Normal 0.0-0.5 [facility] Comment on above: Performed By: #### C BC #### [facility] [address] [place] [address] Dr. Ashlie Hills LYMPH # 1.3 103/ul Normal 1.2-3.8 [facility] Comment on above: Performed By: #### C BC #### [facility] [address] [place] [address] Dr. Ashlie Hills Lymphocytes/100 WBC (Bld) 9.4 % Critically low 20.5-60.0 [facility] Comment on above: Performed By: #### C BC #### [facility] [address] [place] [address] Dr. Ashlie Hills MANUAL DIFF REQ NO Normal [facility] Comment on above: Performed By: #### C BC #### [facility] [address] [place] [address] Dr. Ashlie Hills MCH (RBC) [Entitic mass] 28.4 pg Normal 26.7-34.0 [facility] Comment on above: Performed By: #### C BC #### [facility] [address] [place] [address] Dr. Ashlie Hills MCHC (RBC) [Mass/Vol] 31.8 g/dL Normal 29.9-35.2 [facility] Comment on above: Performed By: #### C BC #### [facility] [address] [place] [address] Dr. Ashlie Hills MCV (RBC) [Entitic vol] 89.4 fL Normal 81.0-99.0 [facility] Comment on above: Performed By: #### C BC #### [facility] [address] [place] [address] Dr. Ashlie Hills MONO # 0.5 103/ul Normal 0.3-0.8 [facility] Comment on above: Performed By: #### C BC #### [facility] [address] [place] [address] Dr. Ashlie Hills Monocytes/100 WBC (Bld) 3.4 % Normal 1.7-12.0 [facility] Comment on above: Performed By: #### C BC #### [facility] [address] [place] [address] Dr. Ashlie Hills NEUT # 11.8 103/ul Critically high 1.4-6.5 [facility] Comment on above: Performed By: #### C BC #### [facility] [address] [place] [address] Dr. Ashlie Hills Neutrophils/100 WBC (Bld) 86.7 % Critically high 43.0-75.0 [facility] Comment on above: Performed By: #### C BC #### [facility] [address] [address] [address] Ashlie Hills Platelet mean volume (Bld) [Entitic vol] 12.6 fL Normal 9.5-13.5 [facility] Comment on above: Performed By: #### C BC #### [facility] [address] [address] [address] Ashlie Hills PLT 133 103/ul Critically low 150-450 [facility] Comment on above: Performed By: #### C BC #### [facility] [address] [address] [address] Ashlie Hills RBC 5.17 106/ul Normal 4.20-5.40 [facility] Comment on above: Performed By: #### C BC #### [facility] [address] [place] [address] Dr. Ashlie Hills WBC 13.6 103/ul Critically high 4.0-11.0 [facility] Comment on above: Performed By: #### C BC #### [facility] [address] [place] [address] Dr. Ashlie Hills MAGNESIUMon 12-06-2022 Magnesium [Mass/Vol] 2.2 mg/dL Normal 1.8-2.4 [facility] Comment on above: Performed By: #### I NFLUAB #### [facility] [address] [place] [address] Dr. Ashlie Hills POINT OF CARE GLUCOSEon 11-08 Glucose [Mass/Vol] 340 mg/dL Critically high 74-106 [facility] Comment on above: Performed By: #### P OCGLUC #### [facility] [address] [place] [address] Dr. Ashlie Hills Glucose [Mass/Vol] 276 mg/dL Critically high 74-106 [facility] Comment on above: Performed By: #### C BC #### [facility] [address] [place] [address] Dr. Ashlie Hills Glucose [Mass/Vol] 333 mg/dL Critically high 74-106 [facility] Comment on above: Performed By: #### C BC #### [facility] [address] [address] [address] Ashlie Hills PROF CHEM 8 (BAS METB)on Anion gap [Moles/Vol] 10.9 mmol/L Normal [facility] Comment on above: Performed By: #### I NFLUAB #### [facility] [address] [place] [address] Dr. Ashlie Hills Calcium [Mass/Vol] 9.3 mg/dL Normal 8.5-10.1 [facility] Comment on above: Performed By: #### I NFLUAB #### [facility] [address] [place] [address] Dr. Ashlie Hills Chloride [Moles/Vol] 103 mmol/L Normal 98-107 [facility] Comment on above: Performed By: #### I NFLUAB #### [facility] [address] [place] [address] Dr. Ashlie Hills CO2 [Moles/Vol] 31.2 mmol/L Normal 21.0-32.0 [facility] Comment on above: Performed By: #### I NFLUAB #### [facility] [address] [place] [address] Dr. Ashlie Hills Creatinine [Mass/Vol] 0.96 mg/dL Normal 0.55-1.02 [facility] Comment on above: Performed By: #### I NFLUAB #### [facility] [address] [place] [address] Dr. Ashlie Hills EGFR-AF JORDANIAN >60 Normal >=60 [facility] Comment on above: Performed By: #### I NFLUAB #### [facility] [address] [place] [address] Dr. Ashlei Hills EGFR-NON AF JORDANIAN >60 Normal >=60 [facility] Comment on above: Performed By: #### I NFLUAB #### [facility] [address] [place] [address] Dr. Ashlie Hills Glucose [Mass/Vol] 288 mg/dL Critically high 74-106 [facility] Comment on above: Performed By: #### I NFLUAB #### [facility] [address] [address] [address] Ashlie Hills Potassium [Moles/Vol] 5.1 mmol/L Normal 3.5-5.1 [facility] Comment on above: Performed By: #### I NFLUAB #### [facility] [address] [place] [address] Dr. Ashlie Hills Sodium [Moles/Vol] 140 mmol/L Normal 136-145 [facility] Comment on above: Performed By: #### I NFLUAB #### [facility] [address] [place] [address] Dr. Ashlie Hills Urea nitrogen [Mass/Vol] 30.0 mg/dL Critically high 7.0-18.0 [facility] Comment on above: Performed By: #### I NFLUAB #### [facility] [address] [place] [address] Dr. Ashlie Hills Urea nitrogen/Creatinine [Mass ratio] 31.2 mg/mg Normal [facility] Comment on above: Performed By: #### I NFLUAB #### [facility] [address] [place] [address] Dr. Ashlie Hills CBC AUTO DIFFon 12-05-2022 BASO # 0.0 103/ul Normal 0.0-0.1 [facility] Comment on above: Performed By: #### C BC #### [facility] [address] [place] [address] Dr. Ashlie Hills Basophils/100 WBC (Bld) 0.4 % Normal 0.2-2.0 [facility] Comment on above: Performed By: #### C BC #### [facility] [address] [place] [address] Dr. Ashlie Hills EO # 0.0 103/ul Normal 0.0-0.7 [facility] Comment on above: Performed By: #### C BC #### [facility] [address] [place] [address] Dr. Ashlie Hills Eosinophils/100 WBC (Bld) 0.0 % Critically low 0.9-7.0 [facility] Comment on above: Performed By: #### C BC #### [facility] [address] [address] [address] Ashlie Hills Erythrocyte distribution width (RBC) [Ratio] 14.8 % Normal 11.0-15.0 [facility] Comment on above: Performed By: #### C BC #### [facility] [address] [address] [address] Ashile Hills Hematocrit (Bld) [Volume fraction] 49.9 % Critically high 36.0-48.0 [facility] Comment on above: Performed By: #### C BC #### [facility] [address] [place] [address] Dr. Ashlie Hills Hemoglobin (Bld) [Mass/Vol] 15.7 g/dL Normal 12.0-16.0 [facility] Comment on above: Performed By: #### C BC #### [facility] [address] [place] [address] Dr. Ashlie Hills IG # 0.04 10e3/ul Critically high 0.00-0.03 [facility] Comment on above: Performed By: #### C BC #### [facility] [address] [place] [address] Dr. Ashlie Hills IG % 0.5 % Normal 0.0-0.5 [facility] Comment on above: Performed By: #### C BC #### [facility] [address] [place] [address] Dr. Ashlie Hills LYMPH # 1.1 103/ul Critically low 1.2-3.8 [facility] Comment on above: Performed By: #### C BC #### [facility] [address] [place] [address] Dr. Ashlie Hills Lymphocytes/100 WBC (Bld) 12.7 % Critically low 20.5-60.0 [facility] Comment on above: Performed By: #### C BC #### [facility] [address] [place] [address] Dr. Ashlie Hills MANUAL DIFF REQ NO Normal [facility] Comment on above: Performed By: #### C BC #### [facility] [address] [address] [address] Ashlie Hills MCH (RBC) [Entitic mass] 28.1 pg Normal 26.7-34.0 [facility] Comment on above: Performed By: #### C BC #### [facility] [address] [address] [address] Ashlie Hills MCHC (RBC) [Mass/Vol] 31.5 g/dL Normal 29.9-35.2 [facility] Comment on above: Performed By: #### C BC #### [facility] [address] [address] [address] Ashlie Hills MCV (RBC) [Entitic vol] 89.3 fL Normal 81.0-99.0 [facility] Comment on above: Performed By: #### C BC #### [facility] [address] [place] [address] Dr. Ashlie Hills MONO # 0.1 103/ul Critically low 0.3-0.8 [facility] Comment on above: Performed By: #### C BC #### [facility] [address] [address] [address] Ashlie Hills Monocytes/100 WBC (Bld) 1.3 % Critically low 1.7-12.0 [facility] [place] [facility] Comment on above: Performed By: #### C BC #### [facility] [address] [address] [address] Ashlie Hills NEUT # 7.2 103/ul Critically high 1.4-6.5 [facility] Comment on above: Performed By: #### C BC #### [facility] [address] [place] [address] Dr. Ashlie Hills Neutrophils/100 WBC (Bld) 85.1 % Critically high 43.0-75.0 [facility] [place] [facility] Comment on above: Performed By: #### C BC #### [facility] [address] [address] [address] Ashlie Hills Platelet mean volume (Bld) [Entitic vol] 12.2 fL Normal 9.5-13.5 [facility] [place] [facility] Comment on above: Performed By: #### C BC #### [facility] [address], [place] [address] Dr. Ashlie Hills PLT 116 103/ul Critically low 150-450 [facility] Comment on above: Performed By: #### C BC #### [facility] [address], [place] [address] Dr. Ashlie Hills RBC 5.59 106/ul Critically high 4.20-5.40 [facility] Comment on above: Performed By: #### C BC #### [facility] [address], [place] [address] Dr. Ashlie Hills WBC 8.5 103/ul Normal 4.0-11.0 [facility] [place] [facility] Comment on above: Performed By: #### C BC #### [facility] [address], [place] [address] Dr. Ashlie Hills CTA CHEST WO W [...] by: HATTIE GOFF Date: 2022-12-05 01:52 Normal [facility] [place] [facility] MAGNESIUMon 12-05-2022 Magnesium [Mass/Vol] 2.1 mg/dL Normal 1.8-2.4 [facility] [place] [facility] Comment on above: Performed By: #### P OCGLUC #### [facility] [address] [address] [address] Ashlie Hills POINT OF CARE GLUCOSEon 11-08 Glucose [Mass/Vol] 293 mg/dL Critically high [facility] Comment on above: Performed By: #### P OCGLUC #### [facility] [address] [address] [address] Ashlie Hills Glucose [Mass/Vol] 269 mg/dL Critically high [facility] Comment on above: Performed By: #### P OCGLUC #### [facility] [address] [address] [address] Ashlie Hills Glucose [Mass/Vol] 223 mg/dL Critically high [address] [place] [address] Comment on above: Performed By: #### C VDAGS #### [facility] [address] [address] [address] Ashlie Hills PROF CHEM 8 (BAS METB)on Anion gap [Moles/Vol] 11.6 mmol/L Normal [facility] Comment on above: Performed By: #### P OCGLUC #### [facility] [address] [address] [address] Ashlie Hills Calcium [Mass/Vol] 9.2 mg/dL Normal 8.5-10.1 [facility] Comment on above: Performed By: #### P OCGLUC #### [facility] [address] [address] [address] Ashlie Hills Chloride [Moles/Vol] 102 mmol/L Normal 98-107 [facility] [place] [facility] Comment on above: Performed By: #### P OCGLUC #### [facility] [address] [address] [address] Ashlie Hills CO2 [Moles/Vol] 28.7 mmol/L Normal 21.0-32.0 [facility] Comment on above: Performed By: #### P OCGLUC #### [facility] [address] [address] [address] Ashlie Hills Creatinine [Mass/Vol] 1.04 mg/dL Critically high 0.55-1.02 [facility] [place] [facility] Comment on above: Performed By: #### P OCGLUC #### [facility] [address] [address] [address] Ashlie Hills EGFR-AF JORDANIAN >60 Normal >=60 [facility] Comment on above: Performed By: #### P OCGLUC #### [facility] [address] [address] [address] Ashlie Hills EGFR-NON AF JORDANIAN 56 mL/min/1.73m2 Critically low >=60 [facility] [place] [facility] Comment on above: Performed By: #### P OCGLUC #### [facility] [address] [address] [address] Ashlie Hills Glucose [Mass/Vol] 231 mg/dL Critically high 74-106 [facility] Comment on above: Performed By: #### P OCGLUC #### [facility] [address] [address] [address] Ashlie Hills Potassium [Moles/Vol] 4.3 mmol/L Normal 3.5-5.1 [facility] [place] [facility] Comment on above: Performed By: #### P OCGLUC #### [facility] [address] [address] [address] Ashlie Hills Sodium [Moles/Vol] 138 mmol/L Normal 136-145 [facility] Comment on above: Performed By: #### P OCGLUC #### [facility] [address] [address] [address] Ashlie Hills Urea nitrogen [Mass/Vol] 17.0 mg/dL Normal 7.0-18.0 [facility] [place] [facility] Comment on above: Performed By: #### P OCGLUC #### [facility] [address] [place] [address] Dr. Ashlie Hills Urea nitrogen/Creatinine [Mass ratio] 16.3 mg/mg Normal [facility] Comment on above: Performed By: #### P OCGLUC #### [facility] [address] [place] [address] Dr. Ashlie Hills RESPIRATORY PANEL PLUSon Adenovirus Not detected Normal NOT DETECTED [facility] Comment on above: Performed By: #### C VDAGS #### [facility] [address] [place] [address] Dr. Ashlie Hills B. Parapertusis Not detected Normal NOT DETECTED [facility] Comment on above: Performed By: #### C VDAGS #### [facility] [address] [place] [address] Dr. Ashlie Shaffer. Pertussis Not detected Normal NOT DETECTED [facility] Comment on above: Performed By: #### C VDAGS #### [facility] [address] [place] [address] Dr. Ashlie Hills Chlamydia Pneumoniae Not detected Normal NOT DETECTED [facility] Comment on above: Performed By: #### C VDAGS #### [facility] [address] [place] [address] Dr. Ashlie Hills Coronavirus 229E Not detected Normal NOT DETECTED [facility] Comment on above: Performed By: #### C VDAGS #### [facility] [address] [place] [address] Dr. Ashlie Hills Coronavirus HKU1 Not detected Normal NOT DETECTED [facility] Comment on above: Performed By: #### C VDAGS #### [facility] [address] [place] [address] Dr. Ashlie Hills Coronavirus NL63 Not detected Normal NOT DETECTED [facility] Comment on above: Performed By: #### C VDAGS #### [facility] [address] [place] [address] Dr. Ashlie Hills Coronavirus OC43 Not detected Normal NOT DETECTED [facility] Comment on above: Performed By: #### C VDAGS #### [facility] [address] [address] [address] Ashlie Hills Influenza A H1 Not detected Normal NOT DETECTED [facility] Comment on above: Performed By: #### C VDAGS #### [facility] [address] [address] [address] Ashlie Hills Influenza A H1 2009 Not detected Normal NOT DETECTED [facility] Comment on above: Performed By: #### C VDAGS #### [facility] [address] [address] [address] Ashlie Hills Influenza A H3 Not detected Normal NOT DETECTED [facility] Comment on above: Performed By: #### C VDAGS #### [facility] [address] [place] [address] Dr. Ashlie Hills Influenza B Not detected Normal NOT DETECTED [facility] Comment on above: Performed By: #### C VDAGS #### [facility] [address] [place] [address] Dr. Ashlie Hills Metapneumovirus Not detected Normal NOT DETECTED [facility] Comment on above: Performed By: #### C VDAGS #### [facility] [address] [place] [address] Dr. Ashlie Hills Mycoplas. Pneumoniae Not detected Normal NOT DETECTED [facility] Comment on above: Performed By: #### C VDAGS #### [facility] [address] [place] [address] Dr. Ashlie Hills Parainfluenza 1 Not detected Normal NOT DETECTED [facility] Comment on above: Performed By: #### C VDAGS #### [facility] [address] [address] [address] Ashlie Hills Parainfluenza 2 Not detected Normal NOT DETECTED [facility] Comment on above: Performed By: #### C VDAGS #### [facility] [address] [place] [address] Dr. Ashlie Hills Parainfluenza 3 Detected Abnormal NOT DETECTED [facility] Comment on above: Performed By: #### C VDAGS #### [facility] [address] [place] [address] Dr. Ashlie Hills Parainfluenza 4 Not detected Normal NOT DETECTED [facility] Comment on above: Performed By: #### C VDAGS #### [facility] [address] [place] [address] Dr. Ashlie Hills Rhino/Enterovirus Not detected Normal NOT DETECTED [facility] [place] [facility] Comment on above: Performed By: #### C VDAGS #### [facility] [address] [place] [address] Dr. Ashlie Hills RP2 Header 1 RESPIRATORY PANEL: VIRUSES Normal [facility] [place] [facility] Comment on above: Performed By: #### C VDAGS #### [facility] [address] [place] [address] Dr. Ashlie Hills RP2 Header 2 RESPIRATORY PANEL: BACTERIA Normal [facility] [place] [facility] Comment on above: Performed By: #### C VDAGS #### [facility] [address] [place] [address] Dr. Ashlie Hills RSV Not detected Normal NOT DETECTED [facility] Comment on above: Performed By: #### C VDAGS #### [facility] [address] [place] [address] Dr. Ashlie Hills SARS-CoV-2 (COVID-19) RNA MADDY+probe Ql (Unsp spec) Not detected Normal NOT DETECTED [facility] [place] [facility] Comment on above: Performed By: #### C VDAGS #### [facility] [address] [place] [address] Dr. Ashlie Hilsl XR CHEST 1 Von 12-05-2022 XR CHEST [...] by: MARYANNE POWER Date: 2022-12-04 22:23 Normal [facility] [place] [facility] BLOOD GASES BTYon 12-04-2022 02 MODE ROOM AIR Normal [facility] [place] [facility] Comment on above: Performed By: #### C BC #### [facility] [address] [place] [address] Dr. Ashlie Hills ALLENS TEST Positive [facility] Comment on above: Performed By: #### C BC #### [facility] [address] [place] [address] Dr. Ashlie Hills Base excess Calc (Bld) [Moles/Vol] 5.4 mmol/L Critically high -2.0-2.0 [facility] [place] [facility] Comment on above: Performed By: #### C BC #### [facility] [address] [address] [address] Ashlie Hills BIPAP PRESSURE [facility] Comment on above: Performed By: #### C BC #### [facility] [address] [place] [address] Dr. Ashlie Hills CPAP [facility] Comment on above: Performed By: #### C BC #### [facility] [address] [place] [address] Dr. Ashlie Hills FIO2 [facility] Comment on above: Performed By: #### C BC #### [facility] [address] [place] [address] Dr. Ashlie Hills HCO3 (Bld) [Moles/Vol] 30.8 mmol/L Critically high 22.0-26 .0 [facility] [place] [facility] Comment on above: Performed By: #### C BC #### [facility] [address] [place] [address] Dr. Ashlie Hills LPM [facility] Comment on above: Performed By: #### C BC #### [facility] [address] [address] [address] Ashlie Hills MINUTE VOLUME Normal [place] Comment on above: Performed By: #### C BC #### [facility] [address] [place] [address] Dr. Ashlie Hills Oxygen (Bld) [Partial pressure] 46.3 mm[Hg] Critically low 80.0-100.0 [facility] [place] [facility] Comment on above: Performed By: #### C BC #### [facility] [address] [address] [address] Ashlie Hills Oxygen saturation in Blood 83.9 % Critically low 95.0-100.0 [facility] [place] [facility] Comment on above: Performed By: #### C BC #### [facility] [address] [address] [address] Ashlie Hills PCO2 54.2 mmHg Critically high 35.0-45.0 [facility] Comment on above: Performed By: #### C BC #### [facility] [address] [address] [address] Ashlie Hills [facility] Comment on above: Performed By: #### C BC #### [facility] [address] [place] [address] Dr. Ashlie Hills pH (Bld) 7.363 [pH] Normal 7.350-7.450 [facility] [place] [facility] Comment on above: Performed By: #### C BC #### [facility] [address] [address] [address] Ashlie Hills [facility] Comment on above: Performed By: #### C BC #### [facility] [address] [address] [address] Ashlie Hills [facility] Comment on above: Performed By: #### C BC #### [facility] [address] [address] [address] Ashlie Hills PUNCTURE SITE LR [facility] Comment on above: Performed By: #### C BC #### [facility] [address] [address] [address] Ashlie Hills RATE [facility] Comment on above: Performed By: #### C BC #### [facility] [address] [place] [address] Dr. Ashlie Hills VENT MODE [facility] Comment on above: Performed By: #### C BC #### [facility] [address] [place] [address] Dr. Ashlie Hills [facility] Comment on above: Performed By: #### C BC #### [facility] [address] [place] [address] Dr. Ashlie Hills BNPon 12-04-2022 Natriuretic peptide B (Bld) [Mass/Vol] 76.0 pg/mL Normal <=900.0 [facility] [place] [facility] Comment on above: Performed By: #### P OCGLUC #### [facility] [address] [place] [address] Dr. Ashlie Hills CBC AUTO DIFFon 12-04-2022 BASO # 0.1 103/ul Normal 0.0-0.1 [facility] [place] [facility] Comment on above: Performed By: #### C BC #### [facility] [address] [place] [address] Dr. Ashlie Hills Basophils/100 WBC (Bld) 0.6 % Normal 0.2-2.0 [facility] Comment on above: Performed By: #### C BC #### [facility] [address] [place] [address] Dr. Ashlie Hills EO # 0.2 103/ul Normal 0.0-0.7 [facility] [place] [facility] Comment on above: Performed By: #### C BC #### [facility] [address] [place] [address] Dr. Ashlie Hills Eosinophils/100 WBC (Bld) 1.9 % Normal 0.9-7.0 [facility] [place] [facility] Comment on above: Performed By: #### C BC #### [facility] [address] [place] [address] Dr. Ashlie Hills Erythrocyte distribution width (RBC) [Ratio] 15.0 % Normal 11.0-15.0 [facility] [place] [facility] Comment on above: Performed By: #### C BC #### [facility] [address] [place] [address] Dr. Ashlie Hills Hematocrit (Bld) [Volume fraction] 49.1 % Critically high 36.0-48.0 [facility] [place] [facility] Comment on above: Performed By: #### C BC #### [facility] [address] [place] [address] Dr. Ashlie Hills Hemoglobin (Bld) [Mass/Vol] 15.6 g/dL Normal 12.0-16.0 [facility] [place] [facility] Comment on above: Performed By: #### C BC #### [facility] [address] [place] [address] Dr. Ashlie Hills IG # 0.02 10e3/ul Normal 0.00-0.03 [facility] [place] [facility] Comment on above: Performed By: #### C BC #### [facility] [address] [place] [address] Dr. Ashlie Hills IG % 0.2 % Normal 0.0-0.5 [facility] [place] [facility] Comment on above: Performed By: #### C BC #### [facility] [address] [place] [address] Dr. Ashlie Hills LYMPH # 2.8 103/ul Normal 1.2-3.8 [facility] [place] [facility] Comment on above: Performed By: #### C BC #### [facility] [address] [place] [address] Dr. Ashlie Hills Lymphocytes/100 WBC (Bld) 29.9 % Normal 20.5-60.0 [facility] [place] [facility] Comment on above: Performed By: #### C BC #### [facility] [address] [place] [address] Dr. Ashlie Hills MANUAL DIFF REQ NO Normal [facility] Comment on above: Performed By: #### C BC #### [facility] [address] [place] [address] Dr. Ashlie Hills MCH (RBC) [Entitic mass] 28.5 pg Normal 26.7-34.0 [facility] [place] [facility] Comment on above: Performed By: #### C BC #### [facility] [address] [place] [address] Dr. Ashlie Hills MCHC (RBC) [Mass/Vol] 31.8 g/dL Normal 29.9-35.2 [facility] [place] [facility] Comment on above: Performed By: #### C BC #### [facility] [address] [place] [address] Dr. Ashlie Hills MCV (RBC) [Entitic vol] 89.8 fL Normal 81.0-99.0 [facility] Comment on above: Performed By: #### C BC #### [facility] [address] [place] [address] Dr. Ashlie Hills MONO # 1.0 103/ul Critically high 0.3-0.8 [facility] Comment on above: Performed By: #### C BC #### [facility] [address] [place] [address] Dr. Ashlie Hills Monocytes/100 WBC (Bld) 10.6 % Normal 1.7-12.0 [facility] Comment on above: Performed By: #### C BC #### [facility] [address] [place] [address] Dr. Ashlie Hills NEUT # 5.3 103/ul Normal 1.4-6.5 [facility] [place] [facility] Comment on above: Performed By: #### C BC #### [facility] [address] [place] [address] Dr. Ashlie Hills Neutrophils/100 WBC (Bld) 56.8 % Normal 43.0-75.0 [facility] [place] [facility] Comment on above: Performed By: #### C BC #### [facility] [address] [place] [address] Dr. Ashlie Hills Platelet mean volume (Bld) [Entitic vol] 12.5 fL Normal 9.5-13.5 [facility] [place] [facility] Comment on above: Performed By: #### C BC #### [facility] [address] [place] [address] Dr. Ashlie Hills PLT 109 103/ul Critically low 150-450 [facility] Comment on above: Performed By: #### C BC #### [facility] [address] [place] [address] Dr. Ashlie Hills RBC 5.47 106/ul Critically high 4.20-5.40 [facility] Comment on above: Performed By: #### C BC #### [facility] [address] [place] [address] Dr. Ashlie Hills WBC 9.4 103/ul Normal 4.0-11.0 [facility] [place] [facility] Comment on above: Performed By: #### C BC #### [facility] [address] [address] [address] Ashlie Hills PROF 14(COMP METB)on 023 Albumin [Mass/Vol] 2.9 g/dL Critically low 3.4-5.0 [facility] Comment on above: Performed By: #### C BC #### [facility] [address] [place] [address] Dr. Ashlie Hills Albumin/Globulin [Mass ratio] 0.6 {ratio} Normal [facility] [place] [facility] Comment on above: Performed By: #### C BC #### [facility] [address] [place] [address] Dr. Ashlie Hills ALP [Catalytic activity/Vol] 64 U/L Normal 46-116 [facility] [place] [facility] Comment on above: Performed By: #### C BC #### [facility] [address] [place] [address] Dr. Ashlie Hills ALT [Catalytic activity/Vol] 16 U/L Normal 14-59 [facility] [place] [facility] Comment on above: Performed By: #### C BC #### [facility] [address] [place] [address] Dr. Ashlie Hills Anion gap [Moles/Vol] 9.6 mmol/L Normal [facility] [place] [facility] Comment on above: Performed By: #### C BC #### [facility] [address] [place] [address] Dr. Ashlie Hills AST [Catalytic activity/Vol] 16 U/L Normal 15-37 [facility] [place] [facility] Comment on above: Performed By: #### C BC #### [facility] [address] [place] [address] Dr. Ashlie Hills Bilirubin [Mass/Vol] 0.5 mg/dL Normal 0.2-1.0 [facility] [place] [facility] Comment on above: Performed By: #### C BC #### [facility] [address] [place] [address] Dr. Ashlie Hills Calcium [Mass/Vol] 8.7 mg/dL Normal 8.5-10.1 [facility] Comment on above: Performed By: #### C BC #### [facility] [address] [place] [address] Dr. Ashlie Hills Chloride [Moles/Vol] 103 mmol/L Normal 98-107 [facility] [place] [facility] Comment on above: Performed By: #### C BC #### [facility] [address] [address] [address] Ashlie Hills CO2 [Moles/Vol] 30.7 mmol/L Normal 21.0-32.0 [facility] Comment on above: Performed By: #### C BC #### [facility] [address] [place] [address] Dr. Ashlie Hills Creatinine [Mass/Vol] 0.96 mg/dL Normal 0.55-1.02 [facility] [place] [facility] Comment on above: Performed By: #### C BC #### [facility] [address] [place] [address] Dr. Ashlie Hills EGFR-AF JORDANIAN >60 Normal >=60 [facility] Comment on above: Performed By: #### C BC #### [facility] [address] [place] [address] Dr. Ashlie Hills EGFR-NON AF JORDANIAN >60 Normal >=60 [facility] [place] [facility] Comment on above: Performed By: #### C BC #### [facility] [address] [place] [address] Dr. Ashlie Hills Globulin (S) [Mass/Vol] 4.7 g/dL Normal [facility] Comment on above: Performed By: #### C BC #### [facility] [address] [place] [address] Dr. Ashlie Hills Glucose [Mass/Vol] 170 mg/dL Critically high 74-106 [facility] Comment on above: Performed By: #### C BC #### [facility] [address] [place] [address] Dr. Ashlie Hills Potassium [Moles/Vol] 4.3 mmol/L Normal 3.5-5.1 [facility] [place] [facility] Comment on above: Performed By: #### C BC #### [facility] [address] [place] [address] Dr. Ashlie Hills Protein [Mass/Vol] 7.6 g/dL Normal 6.4-8.2 [facility] Comment on above: Performed By: #### C BC #### [facility] [address] [place] [address] Dr. Ashlie Hills Sodium [Moles/Vol] 139 mmol/L Normal 136-145 [facility] Comment on above: Performed By: #### C BC #### [facility] [address] [place] [address] Dr. Ashlie Hills Urea nitrogen [Mass/Vol] 16.0 mg/dL Normal 7.0-18.0 [facility] [place] [facility] Comment on above: Performed By: #### C BC #### [facility] [address] [place] [address] Dr. Ashlie Hills Urea nitrogen/Creatinine [Mass ratio] 16.7 mg/mg Normal [facility] [place] [facility] Comment on above: Performed By: #### C BC #### [facility] [address] [place] [address] Dr. Ashlie Hills SYMPTOMATIC COVID-19 ANTIGEN on [...] sooner. Performed By: #### C VDAGS #### [facility] [address] [place] [address] Dr. Ashlie Hills SARS-CoV-2 (COVID-19) RNA MADDY+probe Ql (Unsp spec) Negative Normal NEGATIVE [facility] [place] [facility] Comment on above: Performed By: #### C VDAGS #### [facility] [address] [place] [address] Dr. Ashlie Hills TROPONIN, HIGH SENSITIVITYon 12-04-2022 HSTROP 8.9 pg/mL Normal 4.0-51.3 [facility] Comment on above: Result Comment: CUT- OFF POINTS HAVE BEEN ESTABLISHED BASED ON THE FOURTH UNIVERSAL DEFINITIONS OF MYOCARDIAL INFARCTION. THE UPPER REFERENCE LIMIT (URL) OF TROPONIN, DEFINED THE 99TH PERCENTILE OF cTnI DISTRIBUTION IN A REFERENCE POPULATION, HAS BEEN CONFIRMED THE DECISION THRESHOLD FOR HI DIAGNOSIS. Performed By: #### P OCGLUC #### [facility] [address] [place] [address] Dr. Ashlie Hills MICROALBUMIN, RAND URon 11-06 mALB 35.8 mg/dL Critically high <=30.0 [facility] Comment on above: Performed By: #### C VDAGS #### [facility] [address] [place] [address] Dr. Ashlie Hills UA RANDOM W/MICROSCOPICon BACTERIA NONE SEEN Normal NONE SEEN [facility] [place] [facility] Comment on above: Performed By: #### C VDAGS #### [facility] [address] [place] [address] Dr. Ashlie Hills Bilirubin Ql (U) Negative Normal NEGATIVE [facility] Comment on above: Performed By: #### C VDAGS #### [facility] [address] [place] [address] Dr. Ashlie Hills CAST SEEN Abnormal NONE SEEN [facility] Comment on above: Performed By: #### C VDAGS #### [facility] [address] [place] [address] Dr. Ashlie Hills Clarity (U) CLEAR Normal CLEAR [facility] Comment on above: Performed By: #### C VDAGS #### [facility] [address] [place] [address] Dr. Ashlie Hills Color (U) YELLOW Normal YELLOW [facility] Comment on above: Performed By: #### C VDAGS #### [facility] [address] [place] [address] Dr. Ashlie Hills Crystals LM Nom (Urine sed) NONE SEEN Normal NONE SEEN [facility] Comment on above: Performed By: #### C VDAGS #### [facility] [address] [place] [address] Dr. Ashlie Hills Epithelial cells LM Ql (Urine sed) MODERATE Abnormal NONE SEEN /RARE [facility] Comment on above: Performed By: #### C VDAGS #### [facility] [address] [place] [address] Dr. Ashlie Hills Glucose Ql (U) Negative Normal NEGATIVE [facility] Comment on above: Performed By: #### C VDAGS #### [facility] [address] [place] [address] Dr. Ashlie Hills Hemoglobin Ql (U) TRACE-INTACT Abnormal NEGATIVE [facility] Comment on above: Performed By: #### C VDAGS #### [facility] [address] [place] [address] Dr. Ashlie Hills Ketones Ql (U) Negative Normal NEGATIVE [facility] Comment on above: Performed By: #### C VDAGS #### [facility] [address] [place] [address] Dr. Ashlie Hills LEUKOCYTES Negative Normal NEGATIVE [facility] Comment on above: Performed By: #### C VDAGS #### [facility] [address] [place] [address] Dr. Ashlie Hills MUCOUS NONE SEEN Normal NONE SEEN [facility] Comment on above: Performed By: #### C VDAGS #### [facility] [address] [place] [address] Dr. Ashlie Hills Nitrite Ql (U) Negative Normal NEGATIVE [facility] Comment on above: Performed By: #### C VDAGS #### [facility] [address] [place] [address] Dr. Ashlie Hills pH (U) 5.0 [pH] Normal 5-9 [facility] Comment on above: Performed By: #### C VDAGS #### [facility] [address] [place] [address] Dr. Ashlie Hills RBC 0-2 Normal 0-2 [facility] Comment on above: Performed By: #### C VDAGS #### [facility] [address] [place] [address] Dr. Ashlie Hills SPEC GRAVITY 1.030 Abnormal 1.005-<=1.025 [facility] Comment on above: Performed By: #### C VDAGS #### [facility] [address] [place] [address] Dr. Ashlie Hills UA PROTEIN 100 mg/dl Abnormal NEGATIVE/ TRACE [facility] Comment on above: Performed By: #### C VDAGS #### [facility] [address] [place] [address] Dr. Ashlie Hills Urobilinogen Qn (U) 0.2 {Little'U}/dL Normal 0.2 - 1. 0 [facility] Comment on above: Performed By: #### C VDAGS #### [facility] [address] [place] [address] Dr. Ashlie Hills WBC NONE SEEN Normal NONE SEEN [facility] Comment on above: Performed By: #### C VDAGS #### [facility] [address] [place] [address] Dr. Ashlie Hills CBC AUTO DIFFon 11-22-2022 BASO # 0.0 103/ul Normal 0.0-0.1 [facility] Comment on above: Performed By: #### C BC #### [facility] [address] [place] [address] Dr. Ashlie Hills Basophils/100 WBC (Bld) 0.3 % Normal 0.2-2.0 [facility] Comment on above: Performed By: #### C BC #### [facility] [address] [place] [address] Dr. Ashlie Hills EO # 0.4 103/ul Normal 0.0-0.7 [facility] Comment on above: Performed By: #### C BC #### [facility] [address] [place] [address] Dr. Ashlie Hills Eosinophils/100 WBC (Bld) 3.0 % Normal 0.9-7.0 [facility] Comment on above: Performed By: #### C BC #### [facility] [address] [place] [address] Dr. Ashlie Hills Erythrocyte distribution width (RBC) [Ratio] 15.3 % Critically high 11.0-15.0 [facility] Comment on above: Performed By: #### C BC #### [facility] [address] [place] [address] Dr. Ashlie Hills Hematocrit (Bld) [Volume fraction] 52.4 % Critically high 36.0-48.0 [facility] Comment on above: Performed By: #### C BC #### [facility] [address] [place] [address] Dr. Ashlie Hills Hemoglobin (Bld) [Mass/Vol] 16.8 g/dL Critically high 12.0-16.0 [facility] Comment on above: Performed By: #### C BC #### [facility] [address] [place] [address] Dr. Ashlie Hills IG # 0.04 10e3/ul Critically high 0.00-0.03 [facility] Comment on above: Performed By: #### C BC #### [facility] [address] [place] [address] Dr. Ashlie Hills IG % 0.3 % Normal 0.0-0.5 [facility] Comment on above: Performed By: #### C BC #### [facility] [address] [place] [address] Dr. Ashlie Hills LYMPH # 4.5 103/ul Critically high 1.2-3.8 [facility] Comment on above: Performed By: #### C BC #### [facility] [address] [place] [address] Dr. Ashlie Hills Lymphocytes/100 WBC (Bld) 33.2 % Normal 20.5-60.0 [facility] Comment on above: Performed By: #### C BC #### [facility] [address] [place] [address] Dr. Ashlie Hills MANUAL DIFF REQ NO Normal [facility] Comment on above: Performed By: #### C BC #### [facility] [address] [place] [address] Dr. Ashlie Hills MCH (RBC) [Entitic mass] 28.0 pg Normal 26.7-34.0 [facility] Comment on above: Performed By: #### C BC #### [facility] [address] [place] [address] Dr. Ashlie Hills MCHC (RBC) [Mass/Vol] 32.1 g/dL Normal 29.9-35.2 [facility] Comment on above: Performed By: #### C BC #### [facility] [address] [place] [address] Dr. Ashlie Hills MCV (RBC) [Entitic vol] 87.3 fL Normal 81.0-99.0 [facility] Comment on above: Performed By: #### C BC #### [facility] [address] [place] [address] Dr. Ashlie Hills MONO # 0.8 103/ul Normal 0.3-0.8 [facility] Comment on above: Performed By: #### C BC #### [facility] [address] [place] [address] Dr. Ashlie Hills Monocytes/100 WBC (Bld) 5.7 % Normal 1.7-12.0 [facility] Comment on above: Performed By: #### C BC #### [facility] [address] [place] [address] Dr. Ashlie Hills NEUT # 7.8 103/ul Critically high 1.4-6.5 [facility] Comment on above: Performed By: #### C BC #### [facility] [address] [place] [address] Dr. Ashlie Hills Neutrophils/100 WBC (Bld) 57.5 % Normal 43.0-75.0 [facility] Comment on above: Performed By: #### C BC #### [facility] [address] [place] [address] Dr. Ashlie Hills Platelet mean volume (Bld) [Entitic vol] 12.0 fL Normal 9.5-13.5 [facility] Comment on above: Performed By: #### C BC #### [facility] [address] [place] [address] Dr. Ashlie Hills PLT 152 103/ul Normal 150-450 [facility] Comment on above: Performed By: #### C BC #### [facility] [address] [place] [address] Dr. Ashlie Hills RBC 6.00 106/ul Critically high 4.20-5.40 [facility] Comment on above: Performed By: #### C BC #### [facility] [address] [place] [address] Dr. Ashlie Hills WBC 13.6 103/ul Critically high 4.0-11.0 [facility] Comment on above: Performed By: #### C BC #### [facility] [address] [place] [address] Dr. Ashlie Hills LIPID PROFILEon 11-22-2022 CHOL-HDL RATIO NORM SEE BELOW Normal [facility] Comment on above: Result Comment: 3.3 - 4.4 LOW RISK 4.4 - 7.1 AVERAGE RISK 7.1 - 11.0 MODERATE RISK >11.0 HIGH RISK Performed By: #### C BC #### [facility] [address] [place] [address] Dr. Ashlie Hills Cholesterol [Mass/Vol] 139 mg/dL Normal <=200 [facility] Comment on above: Performed By: #### C BC #### [facility] [address] [place] [address] Dr. Ashlie Hills Cholesterol in HDL [Mass/Vol] 35 mg/dL Critically low 40-60 [facility] Comment on above: Performed By: #### C BC #### [facility] [address] [place] [address] Dr. Ashlie Hills Cholesterol in LDL [Mass/Vol] 67.4 mg/dL Normal [facility] Comment on above: Performed By: #### C BC #### [facility] [address] [place] [address] Dr. Ashlie Hills Cholesterol.total/Gianna sterol in HDL [Mass ratio] 4.0 {ratio} Normal [facility] Comment on above: Performed By: #### C BC #### [facility] [address] [address] [address] Ashlie Hills HDL NORMAL > or = 60 mg/dl - LOW CARDIOVASCULAR RISK <40 mg/dl - HIGH CARDIOVASCULAR RISK Normal [facility] Comment on above: Performed By: #### C BC #### [facility] [address] [address] [address] Ashlie Hills LDL CALC NORMAL SEE BELOW Normal [facility] Comment on above: Result Comment: <100 mg/dl OPTIMAL 100 - 129 mg/dl NEAR OR ABOVE OPTIMAL 130 - 159 mg/dl BORDERLINE HIGH 160 - 189 mg/dl HIGH >190 mg/dl VERY HIGH Performed By: #### C BC #### [facility] [address] [address] [address] Ashlie Hills Triglyceride [Mass/Vol] 183 mg/dL Critically high <=150 [facility] Comment on above: Performed By: #### C BC #### [facility] [address] [address] [address] Ashlie Hills VLDL CALC 36.6 mg/dL Normal [facility] Comment on above: Performed By: #### C BC #### [facility] [address] [address] [address] Ashlie Hills MG MAMM SCREEN 3D ALEX CADon 11-22-2022 MG MAMM SCREEN 3D ALEX CAD Patient: MITZI MACIAS Exam Date: 11/22/2022 : 1970 Gender:F Ordering : SAYDA BLAS [employer] Admission #: [id number] Family : Order #: [id number] CLICK HERE TO VIEW EXAM RADIOLOGY REPORT [...] unknown cancer at age 75. LOCATION: [facility] BREAST COMPOSITION: Almost entirely fatty. FINDINGS: [...] M.D. on 11/22/2022 at 12:09 Normal [facility] PROF 14(COMP METB)on 023 Albumin [Mass/Vol] 3.0 g/dL Critically low 3.4-5.0 [facility] Comment on above: Performed By: #### C BC #### [facility] [address] [place] [address] Dr. Ashlie Hills Albumin/Globulin [Mass ratio] 0.6 {ratio} Normal [facility] Comment on above: Performed By: #### C BC #### [facility] [address] [address] [address] Ashlie Hills ALP [Catalytic activity/Vol] 68 U/L Normal 46-116 [facility] Comment on above: Performed By: #### C BC #### [facility] [address] [address] [address] Ashlie Hills ALT [Catalytic activity/Vol] 14 U/L Normal 14-59 [facility] Comment on above: Performed By: #### C BC #### [facility] [address] [address] [address] Ashlie Hills Anion gap [Moles/Vol] 12.1 mmol/L Normal [facility] Comment on above: Performed By: #### C BC #### [facility] [address] [address] [address] Ashlie Hills AST [Catalytic activity/Vol] 9 U/L Critically low 15-37 [facility] Comment on above: Performed By: #### C BC #### [facility] [address] [address] [address] Ashlie Hills Bilirubin [Mass/Vol] 0.4 mg/dL Normal 0.2-1.0 [facility] Comment on above: Performed By: #### C BC #### [facility] [address] [address] [address] Ashlie Hills Calcium [Mass/Vol] 9.0 mg/dL Normal 8.5-10.1 [facility] Comment on above: Performed By: #### C BC #### [facility] [address] [address] [address] Ashlie Hills Chloride [Moles/Vol] 105 mmol/L Normal 98-107 [facility] Comment on above: Performed By: #### C BC #### [facility] [address] [address] [address] Ashlie Hills CO2 [Moles/Vol] 30.7 mmol/L Normal 21.0-32.0 [facility] Comment on above: Performed By: #### C BC #### [facility] [address] [place] [address] Dr. Ashlie Hills Creatinine [Mass/Vol] 0.77 mg/dL Normal 0.55-1.02 [facility] Comment on above: Performed By: #### C BC #### [facility] [address] [address] [address] Ashlie Hills EGFR-AF JORDANIAN >60 Normal >=60 [facility] Comment on above: Performed By: #### C BC #### [facility] [id number] Ashlie Hills EGFR-NON AF JORDANIAN >60 Normal >=60 [facility] Comment on above: Performed By: #### C BC #### [facility] [address] [address] [address] Ashlie Hills Globulin (S) [Mass/Vol] 4.8 g/dL Normal [facility] Comment on above: Performed By: #### C BC #### [facility] [address] [place] [address] Dr. Ashlie Hills Glucose [Mass/Vol] 162 mg/dL Critically high 74-106 [facility] Comment on above: Performed By: #### C BC #### [facility] [address] [place] [address] Dr. Ashlie Hills Potassium [Moles/Vol] 3.8 mmol/L Normal 3.5-5.1 [facility] Comment on above: Performed By: #### C BC #### [facility] [address] [place] [address] Dr. Ashlie Hills Protein [Mass/Vol] 7.8 g/dL Normal 6.4-8.2 [facility] Comment on above: Performed By: #### C BC #### [facility] [address] [place] [address] Dr. Ashlie Hills Sodium [Moles/Vol] 144 mmol/L Normal 136-145 [facility] Comment on above: Performed By: #### C BC #### [facility] [address] [place] [address] Dr. Ashlie Hills Urea nitrogen [Mass/Vol] 24.0 mg/dL Critically high 7.0-18.0 [facility] Comment on above: Performed By: #### C BC #### [facility] [address] [place] [address] Dr. Ashlie Hills Urea nitrogen/Creatinine [Mass ratio] 31.2 mg/mg Normal [facility] Comment on above: Performed By: #### C BC #### [facility] [address] [place] [address] Dr. Ashlie Hills CBC AUTO DIFFon 10-05-2022 BASO # 0.1 103/ul Normal 0.0-0.1 [facility] Comment on above: Performed By: #### C BC #### [facility] [address] [place], [place] [id number] Dr. Ashlie Hills Basophils/100 WBC (Bld) 0.6 % Normal 0.2-2.0 [facility] Comment on above: Performed By: #### C BC #### [facility] [address] [place] [address] Dr. Ashlie Hills EO # 0.3 103/ul Normal 0.0-0.7 [facility] Comment on above: Performed By: #### C BC #### [facility] [address] [place] [address] Dr. Ashlie Hills Eosinophils/100 WBC (Bld) 2.1 % Normal 0.9-7.0 [facility] Comment on above: Performed By: #### C BC #### [facility] [address] [place] [address] Dr. Ashlie Hills Erythrocyte distribution width (RBC) [Ratio] 15.9 % Critically high 11.0-15.0 [facility] Comment on above: Performed By: #### C BC #### [facility] [address] [place] [address] Dr. Ashlie Hills Hematocrit (Bld) [Volume fraction] 51.8 % Critically high 36.0-48.0 [facility] Comment on above: Performed By: #### C BC #### [facility] [address] [place] [address] Dr. Ashlie Hills Hemoglobin (Bld) [Mass/Vol] 16.6 g/dL Critically high 12.0-16.0 [facility] Comment on above: Performed By: #### C BC #### [facility] [address] [place] [address] Dr. Ashlie Hills IG # 0.03 10e3/ul Normal 0.00-0.03 [facility] Comment on above: Performed By: #### C BC #### [facility] [address] [place] [address] Dr. Ashlie Hills IG % 0.2 % Normal 0.0-0.5 [facility] Comment on above: Performed By: #### C BC #### [facility] [address] [address] [address] Ashlie Hills LYMPH # 3.9 103/ul Critically high 1.2-3.8 [facility] Comment on above: Performed By: #### C BC #### [facility] [address] [place] [address] Dr. Ashlie Hills Lymphocytes/100 WBC (Bld) 31.7 % Normal 20.5-60.0 [facility] Comment on above: Performed By: #### C BC #### [facility] [address] [place] [address] Dr. Ashlie Hills MANUAL DIFF REQ NO Normal [facility] Comment on above: Performed By: #### C BC #### [facility] [address] [place] [address] Dr. Ashlie Hills MCH (RBC) [Entitic mass] 27.9 pg Normal 26.7-34.0 [facility] Comment on above: Performed By: #### C BC #### [facility] [address] [place] [address] Dr. Ashlie Hills MCHC (RBC) [Mass/Vol] 32.0 g/dL Normal 29.9-35.2 [facility] Comment on above: Performed By: #### C BC #### [facility] [address] [place] [address] Dr. Ashlie Hills MCV (RBC) [Entitic vol] 87.1 fL Normal 81.0-99.0 [facility] Comment on above: Performed By: #### C BC #### [facility] [address] [place] [address] Dr. Ashlie Hills MONO # 0.7 103/ul Normal 0.3-0.8 [facility] Comment on above: Performed By: #### C BC #### [facility] [address] [place] [address] Dr. Ashlie Hills Monocytes/100 WBC (Bld) 5.8 % Normal 1.7-12.0 [facility] Comment on above: Performed By: #### C BC #### [facility] [address] [place] [address] Dr. Ashlie Hills NEUT # 7.3 103/ul Critically high 1.4-6.5 [facility] Comment on above: Performed By: #### C BC #### [facility] [address] [address] [address] Ashlie Hills Neutrophils/100 WBC (Bld) 59.6 % Normal 43.0-75.0 [facility] Comment on above: Performed By: #### C BC #### [facility] [address] [place] [address] Dr. Ashlie Hills Platelet mean volume (Bld) [Entitic vol] 11.7 fL Normal 9.5-13.5 [facility] Comment on above: Performed By: #### C BC #### [facility] [address] [place] [address] Dr. Ashlie Hills PLT 117 103/ul Critically low 150-450 [facility] Comment on above: Performed By: #### C BC #### [facility] [address] [place] [address] Dr. Ashlie Hills RBC 5.95 106/ul Critically high 4.20-5.40 [facility] Comment on above: Performed By: #### C BC #### [facility] [address] [place] [address] Dr. Ashlie Hills WBC 12.3 103/ul Critically high 4.0-11.0 [facility] Comment on above: Performed By: #### C BC #### [facility] [address] [place] [address] ABD/PELV W CONon [...] RICCO PICKARD Date: 2022-10-05 13:13 Normal [facility] URINE PROFILEon 3 Bilirubin Ql (U) Negative Normal NEGATIVE [facility] Comment on above: Performed By: #### P OCGLUC #### [facility] [address] [place] [address] Dr. Ashlie Hills Clarity (U) CLEAR Normal CLEAR [facility] Comment on above: Performed By: #### P OCGLUC #### [facility] [address] [address] [address] Ashlie Hills Color (U) YELLOW Normal YELLOW [facility] Comment on above: Performed By: #### P OCGLUC #### [facility] [address] [address] [address] Ashlie HOBBS A micrscopic examination will be performed if indicated. Normal [facility] Comment on above: Performed By: #### P OCGLUC #### [facility] [address] [address] [address] Ashlie Hills Glucose Ql (U) Negative Normal NEGATIVE [facility] Comment on above: Performed By: #### P OCGLUC #### [facility] [address] [address] [address] Ashlie Hills Hemoglobin Ql (U) Negative Normal NEGATIVE [facility] Comment on above: Performed By: #### P OCGLUC #### [facility] [address] [address] [address] Ashlie Hills Ketones Ql (U) Negative Normal NEGATIVE [facility] Comment on above: Performed By: #### P OCGLUC #### [facility] [address] [place] [address] Dr. Ashlie Hills LEUKOCYTES Negative Normal NEGATIVE [facility] Comment on above: Performed By: #### P OCGLUC #### [facility] [address] [place] [address] Dr. Ashlie Hills Nitrite Ql (U) Negative Normal NEGATIVE [facility] Comment on above: Performed By: #### P OCGLUC #### [facility] [address] [place] [address] Dr. Ashlie Hills pH (U) 6.0 [pH] Normal 5-9 [facility] Comment on above: Performed By: #### P OCGLUC #### [facility] [address] [place] [address] Dr. Ashlie Hills Protein (U) [Mass/Vol] 100 mg/dL Abnormal NEGAT YURY/ TRACE [facility] Comment on above: Performed By: #### P OCGLUC #### [facility] [address] [place] [address] Dr. Ashlie Hills SPEC GRAVITY 1.010 Normal 1.005-<=1.025 [facility] Comment on above: Performed By: #### P OCGLUC #### [facility] [address] [place] [address] Dr. Ashlie Hills UR MICRO IND INDICATED Normal [facility] Comment on above: Performed By: #### P OCGLUC #### [facility] [address] [place] [address] Dr. Ashlie Hills Urobilinogen Qn (U) 1.0 {Little'U}/dL Normal 0.2 - 1. 0 [facility] Comment on above: Performed By: #### P OCGLUC #### [facility] [address] [place] [address] Dr. Ashlie Hills LIPASEon 10-05-2022 Lipase [Catalytic activity/Vol] 1771.0 U/L Critically high 73.0-393.0 [facility] Comment on above: Performed By: #### C BC #### [facility] [address] [place] [address] Dr. Ashlie Hills PREG HCG QUALon 10-05-2022 , QUAL Negative Normal NEGATIVE [facility] Comment on above: Performed By: #### P OCGLUC #### [facility] [address] [place] [address] Dr. Ashlie Hills PROF 14(COMP METB)on 023 Albumin [Mass/Vol] 3.2 g/dL Critically low 3.4-5.0 [facility] Comment on above: Performed By: #### C BC #### [facility] [address] [place] [address] Dr. Ashlie Hills Albumin/Globulin [Mass ratio] 0.7 {ratio} Normal [facility] Comment on above: Performed By: #### C BC #### [facility] [address] [place] [address] Dr. Ashlie Hills ALP [Catalytic activity/Vol] 70 U/L Normal 46-116 [facility] Comment on above: Performed By: #### C BC #### [facility] [address] [place] [address] Dr. Ashlie Hills ALT [Catalytic activity/Vol] 11 U/L Critically low 14-59 [facility] Comment on above: Performed By: #### C BC #### [facility] [address] [place] [address] Dr. Ashlie Hills Anion gap [Moles/Vol] 10.3 mmol/L Normal [facility] Comment on above: Performed By: #### C BC #### [facility] [address] [place] [address] Dr. Ashlie Hills AST [Catalytic activity/Vol] 11 U/L Critically low 15-37 [facility] Comment on above: Performed By: #### C BC #### [facility] [address] [place] [address] Dr. Ashlie Hills Bilirubin [Mass/Vol] 0.9 mg/dL Normal 0.2-1.0 [facility] Comment on above: Performed By: #### C BC #### [facility] [address] [address] [address] Ashlie Hills Calcium [Mass/Vol] 9.3 mg/dL Normal 8.5-10.1 [facility] Comment on above: Performed By: #### C BC #### [facility] [address] [address] [address] Ashlie Hills Chloride [Moles/Vol] 105 mmol/L Normal 98-107 [facility] Comment on above: Performed By: #### C BC #### [facility] [address] [place] [address] Dr. Ashlie Hills CO2 [Moles/Vol] 30.6 mmol/L Normal 21.0-32.0 [facility] Comment on above: Performed By: #### C BC #### [facility] [address] [place] [address] Dr. Ashlie Hills Creatinine [Mass/Vol] 0.62 mg/dL Normal 0.55-1.02 [facility] Comment on above: Performed By: #### C BC #### [facility] [address] [place] [address] Dr. Ashlie Hills EGFR-AF JORDANIAN >60 Normal >=60 [facility] Comment on above: Performed By: #### C BC #### [facility] [address] [place] [address] Dr. Ashlie Hills EGFR-NON AF JORDANIAN >60 Normal >=60 [facility] Comment on above: Performed By: #### C BC #### [facility] [address] [address] [address] Ashlie Hills Globulin (S) [Mass/Vol] 4.6 g/dL Normal [facility] Comment on above: Performed By: #### C BC #### [facility] [address] [place] [address] Dr. Ashlie Hills Glucose [Mass/Vol] 85 mg/dL Normal 74-106 [facility] Comment on above: Performed By: #### C BC #### [facility] [address] [place] [address] Dr. Ashlie Hills Potassium [Moles/Vol] 3.9 mmol/L Normal 3.5-5.1 [facility] Comment on above: Performed By: #### C BC #### [facility] [address] [place] [address] Dr. Ashlie Hills Protein [Mass/Vol] 7.8 g/dL Normal 6.4-8.2 [facility] Comment on above: Performed By: #### C BC #### [facility] [address] [place] [address] Dr. Ashlie Hills Sodium [Moles/Vol] 142 mmol/L Normal 136-145 [facility] Comment on above: Performed By: #### C BC #### [facility] [address] [place] [address] Dr. Ashlie Hills Urea nitrogen [Mass/Vol] 12.0 mg/dL Normal 7.0-18.0 [facility] Comment on above: Performed By: #### C BC #### [facility] [address] [place] [address] Dr. Ashlie Hills Urea nitrogen/Creatinine [Mass ratio] 19.4 mg/mg Normal [facility] Comment on above: Performed By: #### C BC #### [facility] [address] [place] [address] Dr. Ashlie Hills URINE MICROSCOPIC ONLYon BACTERIA TRACE Abnormal NONE SEEN [facility] Comment on above: Performed By: #### P OCGLUC #### [facility] [address] [place] [address] Dr. Ashlie Hills Bacteria identified Cx Nom (U) NOT INDICATED Normal [facility] Comment on above: Performed By: #### P OCGLUC #### [facility] [address] [place] [address] Dr. Ashlie Hills CAST NONE SEEN Normal NONE SEEN [facility] Comment on above: Performed By: #### P OCGLUC #### [facility] [address] [place] [address] Dr. Ashlie Hills Crystals LM Nom (Urine sed) NONE SEEN Normal NONE SEEN [facility] Comment on above: Performed By: #### P OCGLUC #### [facility] [address] [place] [address] Dr. Ashlie Hills Epithelial cells LM Ql (Urine sed) MODERATE Abnormal NONE SEEN /RARE [facility] Comment on above: Performed By: #### P OCGLUC #### [facility] [address] [place] [address] Dr. Ashlie Hills MUCOUS NONE SEEN Normal NONE SEEN [facility] Comment on above: Performed By: #### P OCGLUC #### [facility] [address] [place] [address] Dr. Ashlie Hills RBC 0-2 Normal 0-2 [facility] Comment on above: Performed By: #### P OCGLUC #### [facility] [address] [place] [address] Dr. Ashlie Hills WBC 0-2 Abnormal NONE SEEN [facility] Comment on above: Performed By: #### P OCGLUC #### [facility] [address] [place] [address] Dr. Ashlie Hills [facility]on [facility]06 SARS-CoV-2 (COVID-19) RNA MADDY+probe Ql (Unsp spec) Detected Abnormal NOT DETECTED [facility] Comment on above: Result Comment: This test is not yet approved or cleared by the [place] FDA. When there are no FDA-approved or cleared tests available, and other criteria are met, FDA can make tests available under an emergency access mechanism called an Emergency Use Authorization (EUA). The EUA for this test is supported by the [place] of Health and Human Service's declaration that [...] used). Performed By: #### C VDAGS #### [facility] [address] [place] [address] Dr. Ashlie Hills INFLUENZA A AND B AGon 09-21 INFLUANEGH SEE BELOW Normal [facility] Comment on above: Result Comment: Nega tive for Flu A protein angiten. Infection due to Flu A cannot be ruled out. Flu A angiten in the sample may be below the detection limit of the test. Performed By: #### I NFLUAB #### [facility] [address] [place] [address] Dr. Ashlie Hills [facility] SEE BELOW Normal [facility] Comment on above: Result Comment: Nega tive for Flu B protein antigen. Infection due to Flu B cannot be ruled out. Flu B antigen in the sample may be below the detection limit of the test. Performed By: #### I NFLUAB #### [facility] [address] [place] [address] Dr. Ashlie Hills INFLUENZA A AG Negative Normal NEGATIVE SEE COMMENT [facility] Comment on above: Performed By: #### I NFLUAB #### [facility] [address] [place] [address] Dr. Ashlie Hills INFLUENZA B AG Negative Normal NEGATIVE SEE COMMENT [facility] Comment on above: Performed By: #### I NFLUAB #### [facility] [address] [place] [address] ABD/PELV W CONon [...] dating back to at least 10/21/2018, unchanged. [email or web address].ncbi.[facility] [place].nih.gov/pmc/artic les/[id number]/ Electronically authenticated by: COLLIN HUERTAS Date: 2022-07-27 14:56 Normal [facility] CREATININEon 07-18-2022 Creatinine [Mass/Vol] 0.81 mg/dL Normal 0.55-1.02 [facility] Comment on above: Performed By: #### C BC #### [facility] [address] [place] [address] Dr. Ashlie Hills EGFR-AF JORDANIAN >60 Normal >=60 [facility] Comment on above: Performed By: #### C BC #### [facility] [address] [place] [address] Dr. Ashlie Hills EGFR-NON AF JORDANIAN >60 Normal >=60 [facility] Comment on above: Performed By: #### C BC #### [facility] [address] [place] [address] LOW EXT W [...] PATRICIA VELOZ Date: 2022-07-18 14:58 Normal [facility] XR KNEE LT 1_2 Von [...] HATTIE BAUTISTA Date: 2022-07-18 12:00 Normal [facility] Covid-19 PCR (CVDTB)on 06-09 SARS-CoV-2 (COVID-19) RNA MADDY+probe Ql (Unsp spec) Not detected Normal NOT DETECTED [facility] Comment on above: Result Comment: This test is not yet approved or cleared by the [place] FDA. When there are no FDA-approved or cleared tests available, and other criteria are met, FDA can make tests available under an emergency access mechanism called an Emergency Use Authorization (EUA). The EUA for this test is supported by the [employer] of Health and Human Service's (HHS's) declaration [...] SARS-CoV-2. Performed By: #### C BC #### [facility] [address] [place] [address] Dr. Ashlie Hills INFLUENZA A AND B AGon 07-06 INFLUANEGH SEE BELOW Normal [facility] Comment on above: Result Comment: Nega tive for Flu A protein angiten. Infection due to Flu A cannot be ruled out. Flu A angiten in the sample may be below the detection limit of the test. Performed By: #### C BC #### [facility] [address] [address] [address] Ashlie Hills [facility] SEE BELOW Normal [facility] Comment on above: Result Comment: Nega tive for Flu B protein antigen. Infection due to Flu B cannot be ruled out. Flu B antigen in the sample may be below the detection limit of the test. Performed By: #### C BC #### [facility] [address] [place] [address] Dr. Ashlie Hills INFLUENZA A AG Negative Normal NEGATIVE SEE COMMENT [facility] Comment on above: Performed By: #### C BC #### [facility] [address] [place] [address] Dr. Ashlie Hills INFLUENZA B AG Negative Normal NEGATIVE SEE COMMENT [facility] Comment on above: Performed By: #### C BC #### [facility] [address] [place] [address] Dr. Ashlie Hills POINT OF CARE GLUCOSEon 10- Glucose [Mass/Vol] 108 mg/dL Critically high 74-106 [facility] Comment on above: Performed By: #### C BC #### [facility] [address] [place] [address] Dr. Ashlie Hills RAGHU by IFAon 03-07-2022 Antinuclear Antibodies, IFA Negative Normal [facility] Comment on above: Result Comment: Nega tive <1:80 Borderline 1:80 Positive >1:80 ICAP nomenclature: AC-0 For more information about Hep-2 cell patterns use ANApatterns.org, the official website for the International Consensus on Antinuclear Antibody (RAGHU) Patterns (ICAP). Performed By: #### A NAIFA #### [facility] [address] [place] [address] Dr. Ashlie Hills IMMUNOFIXATION (TREVON), URINEo n 03-07-2022 TREVON Interpretation:U Comment Normal [facility] Comment on above: Result Comment: No m onoclonality detected. Performed By: #### C BC #### [facility] [address] [place] [address] Dr. Ashlie Hills IMMUNOFIXATION(TREVON),PROTEIN ELEC(PE),FREon 03-07-2022 Albumin [Mass/Vol] 3.0 g/dL Normal 2.9-4.4 [facility] Comment on above: Performed By: #### I NFLUAB #### [facility] [address] [place] [address] Dr. Ashlie Hills Albumin/Globulin [Mass ratio] 0.8 {ratio} Normal 0.7-1.7 [facility] Comment on above: Performed By: #### I NFLUAB #### [facility] [address] [place] [address] Dr. Ashlie Hills Tigbm-0-Jqewhrxa 0.3 g/dL Normal 0.0-0.4 [facility] Comment on above: Performed By: #### I NFLUAB #### [facility] [address] [place] [address] Dr. Ashlie Hills Wlack-3-Ctclzffk 1.0 g/dL Normal 0.4-1.0 [facility] Comment on above: Performed By: #### I NFLUAB #### [facility] [address] [place] [address] Dr. Ashlie Hills Beta Globulin 1.8 g/dL Critically high 0.7-1.3 [facility] Comment on above: Performed By: #### I NFLUAB #### [facility] [address] [place] [address] Dr. Ashlie Hills Free Oriska Lt Chains,S 45.2 mg/L Critically high 3.3-19.4 [facility] Comment on above: Performed By: #### I NFLUAB #### [facility] [address] [place] [address] Dr. Ashlie Hills Free Lambda Lt Chains,S 40.3 mg/L Critically high 5.7-26. 3 [facility] Comment on above: Performed By: #### I NFLUAB #### [facility] [address] [place] [address] Dr. Ashlie Hills Gamma Globulin 0.8 g/dL Normal 0.4-1.8 [facility] Comment on above: Performed By: #### I NFLUAB #### [facility] [address] [place] [address] Dr. Ashlie Hills Globulin (S) [Mass/Vol] 3.9 g/dL Normal 2.2-3.9 [facility] Comment on above: Performed By: #### I NFLUAB #### [facility] [address] [place] [address] Dr. Ashlie Hills Immunofixation Result, Serum Comment Normal [facility] Comment on above: Result Comment: No m onoclonality detected. Performed By: #### I NFLUAB #### [facility] [address] [place] [address] Dr. Ashlie Hills Immunoglobulin A, Qn, Serum 776 mg/dL Critically high 87-352 [facility] Comment on above: Performed By: #### I NFLUAB #### [facility] [address] [place] [address] Dr. Ashlie Hills Immunoglobulin G, Qn, Serum 955 mg/dL Normal 586-1602 [facility] Comment on above: Performed By: #### I NFLUAB #### [facility] [address] [place] [address] Dr. Ashlie Hills Immunoglobulin M, Qn, Serum 39 mg/dL Normal 26-217 [facility] Comment on above: Performed By: #### I NFLUAB #### [facility] [address] [place] [address] Dr. Ashlie Hills Oriska/Lambda Ratio, S 1.12 Normal 0.26-1.65 [facility] Comment on above: Performed By: #### I NFLUAB #### [facility] [address] [place] [address] Dr. Ashlie Hills M-Bright Not Observed Normal Not Observed [facility] Comment on above: Performed By: #### I NFLUAB #### [facility] [address] [place] [address] Dr. Ashlie Hills PDF . Normal [facility] Comment on above: Performed By: #### I NFLUAB #### [facility] [address] [place] [address] Dr. Ashlie Hills Please note: Comment Normal [facility] Comment on above: Result Comment: Prot ein electrophoresis scan will follow via computer, mail, or media consultant delivery. Performed By: #### I NFLUAB #### [facility] [address] [address] [address] Ashlie Hills Protein [Mass/Vol] 6.9 g/dL Normal 6.0-8.5 [facility] Comment on above: Performed By: #### I NFLUAB #### [facility] [address] [place] [address] Dr. Ashlie Hills C-PEPTIDE, SERUMon C-Peptide, Serum 3.1 ng/mL Normal 1.1-4.4 [facility] Comment on above: Result Comment: C-Pe ptide reference interval is for fasting patients. Performed By: #### C PEPT #### [facility] [address] [place] [address] Dr. Ashlie Hills HEP B SURFACE ANTIGEN SCREEN on 03-04-2022 HBsAg Screen Negative Normal Negative [facility] Comment on above: Performed By: #### C BC #### [facility] [address] [place] [address] Dr. Ashlie Hills HEPATITIS C VIRUS AB W/ REFL EX QUANTon 03-04-2022 HCV AB <0.1 Normal 0.0-0.9 [facility] Comment on above: Performed By: #### I NFLUAB #### [facility] [address] [place] [address] Dr. Ashlie Hills Interpretation: Comment Normal [facility] Comment on above: Result Comment: Nega tive Not infected with HCV, unless recent infection is suspected or other evidence exists to indicate HCV infection. Performed By: #### I NFLUAB #### [facility] [address] [place] [address] Dr. Ashlie Hills MICROALBUMIN/ CREATININE RAT IOon 03-04-2022 Albumin, Urine 367.4 ug/mL Normal Not Estab. [facility] Comment on above: Performed By: #### C BC #### [facility] [address] [place] [address] Dr. Ashlie Hills Albumin/ Creatinine Ratio 239 mg/g creat Critically high 0-29 [facility] Comment on above: Result Comment: Norm al: 0 - 29 Moderately increased: 30 - 300 Severely increased: >300 Performed By: #### C BC #### [facility] [address] [address] [address] Ashlie Hills Creatinine, Urine 153.9 mg/dL Normal Not Estab. [facility] Comment on above: Performed By: #### C BC #### [facility] [address] [address] [address] Ashlie Hills VIT D 25-OH LABCORPon 2021 Vitamin D, 25-Hydroxy <4.0 Critically low 30.0-100.0 [facility] Comment on above: Result Comment: Graciela min D deficiency has been defined by the [place] [employer] and an Endocrine Society practice guideline as a level of serum 25-OH vitamin D less than 20 ng/mL (1,2). The Endocrine Society went on to further define vitamin D insufficiency as a level between 21 and 29 ng/mL (2). 1. IOM ([place] [employer]). 2010. Dietary reference intakes for calcium and D. [place]: The National Academies Press. 2. Lynda MF, Keely [place], Leandra LOPEZ, et al. Evaluation, treatment, and prevention of vitamin D deficiency: an Endocrine Society clinical practice guideline. JCEM. 2010; 96(7):1911-30. Performed By: #### C BC #### [facility] [address] [address] [address] Ashlie Hills GLYCOHEMOGLOBIN A1Con 2021 ADA RECOMMENDATION SEE BELOW Normal [facility] Comment on above: Result Comment: ADA RECOMMENDED LIMIT 4.0 - 6.0 ADA THERAPEUTIC TARGET < 7.0 ACTION SUGGESTED > 7.0 Performed By: #### C VDAGS #### [facility] [address] [address] [address] Ashlie Hills Glucose [Mass/Vol] 295 mg/dL Normal [facility] Comment on above: Performed By: #### C VDAGS #### [facility] [address] [place] [address] Dr. Ashlie Hills HbA1c (Bld) [Mass fraction] 11.9 % Critically high 4.5-6.2 [facility] Comment on above: Performed By: #### C VDAGS #### [facility] [address] [place] [address] Dr. Ashlie Hills HEMOGRAM AND PLATELon 2021 Hematocrit (Bld) [Volume fraction] 56.3 % Critically high 36.0-48.0 [facility] Comment on above: Performed By: #### C VDAGS #### [facility] [address] [place] [address] Dr. Ashlie Hills Hemoglobin (Bld) [Mass/Vol] 18.0 g/dL Critically high 12.0-16.0 [facility] Comment on above: Performed By: #### C VDAGS #### [facility] [address] [place] [address] Dr. Ashlie Hills MCH (RBC) [Entitic mass] 29.5 pg Normal 26.7-34.0 [facility] Comment on above: Performed By: #### C VDAGS #### [facility] [address] [place] [address] Dr. Ashlie Hills MCHC (RBC) [Mass/Vol] 32.0 g/dL Normal 29.9-35.2 [facility] Comment on above: Performed By: #### C VDAGS #### [facility] [address] [place] [address] Dr. Ashlie Hills MCV (RBC) [Entitic vol] 92.1 fL Normal 81.0-99.0 [facility] Comment on above: Performed By: #### C VDAGS #### [facility] [address] [place] [address] Dr. Ashlie Hills PLT 123 103/ul Critically low 150-450 [facility] Comment on above: Performed By: #### C VDAGS #### [facility] [address] [place] [address] Dr. Ashlie Hills RBC 6.11 106/ul Critically high 4.20-5.40 [facility] Comment on above: Performed By: #### C VDAGS #### [facility] [address] [place] [address] Dr. Ashlei Hills WBC 16.4 103/ul Critically high 4.0-11.0 [facility] Comment on above: Performed By: #### C VDAGS #### [facility] [address] [place] [address] Dr. Ashlie Hills LIPID PROFILEon 03-03-2022 CHOL-HDL RATIO NORM SEE BELOW Normal [facility] Comment on above: Result Comment: 3.3 - 4.4 LOW RISK 4.4 - 7.1 AVERAGE RISK 7.1 - 11.0 MODERATE RISK >11.0 HIGH RISK Performed By: #### C VDAGS #### [facility] [address] [place] [address] Dr. Ashlie Hills Cholesterol [Mass/Vol] 159 mg/dL Normal <=200 [facility] Comment on above: Performed By: #### C VDAGS #### [facility] [address] [place] [address] Dr. Ashlie Hills Cholesterol in HDL [Mass/Vol] 40 mg/dL Normal 40-60 [facility] Comment on above: Performed By: #### C VDAGS #### [facility] [address] [place] [address] Dr. Ashlie Hills Cholesterol in LDL [Mass/Vol] 81.8 mg/dL Normal [facility] Comment on above: Performed By: #### C VDAGS #### [facility] [address] [place] [address] Dr. Ashlie Hills Cholesterol.total/Gianna sterol in HDL [Mass ratio] 4.0 {ratio} Normal [facility] Comment on above: Performed By: #### C VDAGS #### [facility] [address] [place] [address] Dr. Ashlie Hills HDL NORMAL > or = 60 mg/dl - LOW CARDIOVASCULAR RISK <40 mg/dl - HIGH CARDIOVASCULAR RISK Normal [facility] Comment on above: Performed By: #### C VDAGS #### [facility] [address] [address] [address] Ashlie Hills LDL CALC NORMAL SEE BELOW Normal [facility] Comment on above: Result Comment: <100 mg/dl OPTIMAL 100 - 129 mg/dl NEAR OR ABOVE OPTIMAL 130 - 159 mg/dl BORDERLINE HIGH 160 - 189 mg/dl HIGH >190 mg/dl VERY HIGH Performed By: #### C VDAGS #### [facility] [address] [address] [address] Ashlie Hills Triglyceride [Mass/Vol] 186 mg/dL Critically high <=150 [facility] Comment on above: Performed By: #### C VDAGS #### [facility] [address] [place] [address] Dr. Ashlie Hills VLDL CALC 37.2 mg/dL Normal [facility] Comment on above: Performed By: #### C VDAGS #### [facility] [address] [place] [address] Dr. Ashlie Hills RENAL FUNCTION PANELon 03-03 Albumin [Mass/Vol] 3.1 g/dL Critically low 3.4-5.0 [facility] Comment on above: Performed By: #### C BC #### [facility] [address] [place] [address] Dr. Ashlie Hills Calcium [Mass/Vol] 9.2 mg/dL Normal 8.5-10.1 [facility] Comment on above: Performed By: #### C BC #### [facility] [address] [place] [address] Dr. Ashlie Hills Chloride [Moles/Vol] 102 mmol/L Normal 98-107 [facility] Comment on above: Performed By: #### C BC #### [facility] [address] [place] [address] Dr. Ashlie Hills CO2 [Moles/Vol] 31.9 mmol/L Normal 21.0-32.0 [facility] Comment on above: Performed By: #### C BC #### [facility] [address] [place] [address] Dr. Ashlie Hills Creatinine [Mass/Vol] 0.68 mg/dL Normal 0.55-1.02 [facility] Comment on above: Performed By: #### C BC #### [facility] [address] [address] [address] Ashlie Hills EGFR-AF JORDANIAN >60 Normal >=60 [facility] Comment on above: Performed By: #### C BC #### [facility] [address] [address] [address] Ashlie Hills EGFR-NON AF JORDANIAN >60 Normal >=60 [facility] Comment on above: Performed By: #### C BC #### [facility] [address] [address] [address] Ashlie Hills Glucose [Mass/Vol] 131 mg/dL Critically high 74-106 [facility] Comment on above: Performed By: #### C BC #### [facility] [address] [place] [address] Dr. Ashlie Hills Phosphate [Mass/Vol] 4.0 mg/dL Normal 2.6-4.7 [facility] Comment on above: Performed By: #### C BC #### [facility] [address] [place] [address] Dr. Ashlie Hills Potassium [Moles/Vol] 4.0 mmol/L Normal 3.5-5.1 [facility] Comment on above: Performed By: #### C BC #### [facility] [address] [address] [address] Ashlie Hills Sodium [Moles/Vol] 141 mmol/L Normal 136-145 [facility] [facility] Comment on above: Performed By: #### C BC #### [facility] [address] [place] [address] Dr. Ashlie Hills Urea nitrogen [Mass/Vol] 17.0 mg/dL Normal 7.0-18.0 [facility] [place] [facility] Comment on above: Performed By: #### C BC #### [facility] [address] [place] [address] Dr. Ashlie Hills UA RANDOM W/MICROSCOPICon BACTERIA NONE SEEN Normal NONE SEEN [facility] Comment on above: Performed By: #### I NFLUAB #### [facility] [address] [address] [address] Ashlie Hills Bilirubin Ql (U) Negative Normal NEGATIVE [facility] Comment on above: Performed By: #### I NFLUAB #### [facility] [address] [address] [address] Ashlie Hills CAST NONE SEEN Normal NONE SEEN [facility] Comment on above: Performed By: #### I NFLUAB #### [facility] [address] [place] [address] Dr. Ashlie Hills Clarity (U) CLEAR Normal CLEAR [facility] Comment on above: Performed By: #### I NFLUAB #### [facility] [address] [place] [address] Dr. sAhlie Hills Color (U) YELLOW Normal YELLOW [facility] Comment on above: Performed By: #### I NFLUAB #### [facility] [address] [place] [address] Dr. Ashlie Hills Crystals LM Nom (Urine sed) NONE SEEN Normal NONE SEEN [facility] Comment on above: Performed By: #### I NFLUAB #### [facility] [address] [place] [address] Dr. Ashlie Hills Epithelial cells LM Ql (Urine sed) FEW Abnormal NONE SEEN /RARE [facility] Comment on above: Performed By: #### I NFLUAB #### [facility] [address] [place] [address] Dr. Ashlie Hills Glucose Ql (U) Negative Normal NEGATIVE The [facility] Comment on above: Performed By: #### I NFLUAB #### [facility] [address] [address] [address] Ashlie Hills Hemoglobin Ql (U) Negative Normal NEGATIVE The [facility] Comment on above: Performed By: #### I NFLUAB #### [facility] [address] [address] [address] Ashlie Hills Ketones Ql (U) Negative Normal NEGATIVE The [facility] Comment on above: Performed By: #### I NFLUAB #### [facility] [address] [place] [address] Dr. Ashlie Hills LEUKOCYTES Negative Normal NEGATIVE [facility] [place] [facility] Comment on above: Performed By: #### I NFLUAB #### [facility] [address] [place] [address] Dr. Ashlie Hills MUCOUS NONE SEEN Normal NONE SEEN [facility] [place] [facility] Comment on above: Performed By: #### I NFLUAB #### [facility] [address] [place] [address] Dr. Ashlie Hills Nitrite Ql (U) Negative Normal NEGATIVE [facility] Comment on above: Performed By: #### I NFLUAB #### [facility] [address] [place] [address] Dr. Ashlie Hills pH (U) 5.5 [pH] Normal 5-9 [facility] [place] [facility] Comment on above: Performed By: #### I NFLUAB #### [facility] [address] [place] [address] Dr. Ashlie Hills RBC 0-2 Normal 0-2 [facility] [place] [facility] Comment on above: Performed By: #### I NFLUAB #### [facility] [address] [place] [address] Dr. Ashlie Hills SPEC GRAVITY >=1.030 Abnormal 1.005-<=1.025 [facility] Comment on above: Performed By: #### I NFLUAB #### [facility] [address] [place] [address] Dr. Ashlie Hills UA PROTEIN 100 mg/dl Abnormal NEGATIVE/ TRACE [facility] Comment on above: Performed By: #### I NFLUAB #### [facility] [address] [place] [address] Dr. Ashlie Hills Urobilinogen Qn (U) 0.2 {Little'U}/dL Normal 0.2 - 1. 0 [facility] [place] [facility] Comment on above: Performed By: #### I NFLUAB #### [facility] [address] [place] [address] Dr. Ashlie Hills WBC NONE SEEN Normal NONE SEEN [facility] [place] [facility] Comment on above: Performed By: #### I NFLUAB #### [facility] [address] [place] [address] Dr. Ashlie Hills URIC ACID SERUMon 03-03-2022 Urate [Mass/Vol] 5.0 mg/dL Normal 2.6-6.0 [facility] Comment on above: Performed By: #### I NFLUAB #### [facility] [address] [place] [address] Dr. Ashlie Hills URINE T PROTEIN CREAT RATIOo n 03-03-2022 Protein (U) [Mass/Vol] 77.9 mg/dL Critically high <=12.0 [facility] [place] [facility] Comment on above: Performed By: #### C VDAGS #### [facility] [address] [place] [address] Dr. Ashlie Hills UR PROT CREAT RAT 0.44 Normal [facility] Comment on above: Performed By: #### C VDAGS #### [facility] [address] [place] [address] Dr. Ashlie Hills URINE CREAT 175.15 mg/dL Normal 20.00-300.00 [facility] Comment on above: Performed By: #### C VDAGS #### [facility] [address] [place] [address] Dr. Ashlie Hills CULTURE URINEon 12-25-2021 CULTURE URINE Culture Observations: GREATER THAN TWO ORGANISMS PRESENT, HEAVILY MIXED. PLEASE RESUBMIT CLEAN CATCH MID-STREAM URINE IF CLINICALLY INDICATED. Normal [facility] Comment on above: Performed By: #### I NFLUAB #### [facility] [address] [place] [address] Dr. Ashlie Hills CBC AUTO DIFFon 12-24-2021 BASO # 0.1 103/ul Normal 0.0-0.1 [facility] [place] [facility] Comment on above: Performed By: #### C BC #### [facility] [address] [place] [address] Dr. Ashlie Hills Basophils/100 WBC (Bld) 0.5 % Normal 0.2-2.0 [facility] Comment on above: Performed By: #### C BC #### [facility] [address] [address] [address] Ashlie Hills EO # 0.4 103/ul Normal 0.0-0.7 [facility] [place] [facility] Comment on above: Performed By: #### C BC #### [facility] [address] [place] [address] Dr. Ashlie Hills Eosinophils/100 WBC (Bld) 2.4 % Normal 0.9-7.0 [facility] [place] [facility] Comment on above: Performed By: #### C BC #### [facility] [address] [place] [address] Dr. Ashlie Hills Erythrocyte distribution width (RBC) [Ratio] 14.1 % Normal 11.0-15.0 [facility] [place] [facility] Comment on above: Performed By: #### C BC #### [facility] [address] [place] [address] Dr. Ashlie Hills Hematocrit (Bld) [Volume fraction] 55.9 % Critically high 36.0-48.0 [facility] [place] [facility] Comment on above: Performed By: #### C BC #### [facility] [address] [place] [address] Dr. Ashlie Hills Hemoglobin (Bld) [Mass/Vol] 17.9 g/dL Critically high 12.0-16.0 [facility] [place] [facility] Comment on above: Performed By: #### C BC #### [facility] [address] [place] [address] Dr. Ashlie Hills IG # 0.06 10e3/ul Critically high 0.00-0.03 [facility] Comment on above: Performed By: #### C BC #### [facility] [address] [place] [address] Dr. Ashlie Hills IG % 0.4 % Normal 0.0-0.5 [facility] Comment on above: Performed By: #### C BC #### [facility] [address] [place] [address] Dr. Ashlie Hills LYMPH # 5.8 103/ul Critically high 1.2-3.8 [facility] Comment on above: Performed By: #### C BC #### [facility] [address] [address] [address] Ashlie Hills Lymphocytes/100 WBC (Bld) 35.4 % Normal 20.5-60.0 [facility] [place] [facility] Comment on above: Performed By: #### C BC #### [facility] [address] [place] [address] Dr. Ashlie Hills MANUAL DIFF REQ NO Normal [facility] Comment on above: Performed By: #### C BC #### [facility] [address] [address] [address] Ashlie Hills MCH (RBC) [Entitic mass] 29.4 pg Normal 26.7-34.0 [facility] [place] [facility] Comment on above: Performed By: #### C BC #### [facility] [address] [place] [address] Dr. Ashlie Hills MCHC (RBC) [Mass/Vol] 32.0 g/dL Normal 29.9-35.2 [facility] [place] [facility] Comment on above: Performed By: #### C BC #### [facility] [address] [place] [address] Dr. Ashlie Hills MCV (RBC) [Entitic vol] 91.8 fL Normal 81.0-99.0 [facility] Comment on above: Performed By: #### C BC #### [facility] [address] [place] [address] Dr. Ashlie Hills MONO # 0.8 103/ul Normal 0.3-0.8 [facility] [place] [facility] Comment on above: Performed By: #### C BC #### [facility] [address] [place] [address] Dr. Ashlie Hills Monocytes/100 WBC (Bld) 4.8 % Normal 1.7-12.0 [facility] Comment on above: Performed By: #### C BC #### [facility] [address] [place] [address] Dr. Ashlie Hills NEUT # 9.3 103/ul Critically high 1.4-6.5 [facility] Comment on above: Performed By: #### C BC #### [facility] [address] [address] [address] Ashlie Hills Neutrophils/100 WBC (Bld) 56.5 % Normal 43.0-75.0 [facility] Comment on above: Performed By: #### C BC #### [facility] [address] [address] [address] Ashlie Hills Platelet mean volume (Bld) [Entitic vol] 12.9 fL Normal 9.5-13.5 [facility] Comment on above: Performed By: #### C BC #### [facility] [address] [address] [address] Ashlie Hills PLT 127 103/ul Critically low 150-450 [facility] Comment on above: Performed By: #### C BC #### [facility] [address] [address] [address] Ashlie Hills RBC 6.09 106/ul Critically high 4.20-5.40 [facility] Comment on above: Performed By: #### C BC #### [facility] [address] [address] [address] Ashlie Hills WBC 16.4 103/ul Critically high 4.0-11.0 [facility] Comment on above: Performed By: #### C BC #### [facility] [address] [place] [address] ABD/PELVIS WO CONon [...] Severe right hip degenerative change. Normal [facility] URINE PROFILEon 2 Bilirubin Ql (U) Negative Normal NEGATIVE [facility] Comment on above: Performed By: #### E EVONNE LYMAN #### [facility] [address] [address] [address] Ashlie Hills Clarity (U) CLEAR Normal CLEAR [facility] Comment on above: Performed By: #### E EVONNE LYMAN #### [facility] [address] [place] [address] Dr. Ashlie Hills Color (U) DK. ORANGE Abnormal YELLOW [facility] Comment on above: Performed By: #### MADELINE DIAZRO #### [facility] [address] [place] [address] Dr. Ashlie HOBBS A micrscopic examination will be performed if indicated. Normal [facility] Comment on above: Performed By: #### PEREZ DIAZICRO #### [facility] [address] [place] [address] Dr. Ashlie Hills Glucose Ql (U) 250 mg/dl Abnormal NEGATIVE [facility] Comment on above: Performed By: #### MADELINE DIAZRO #### [facility] [address] [place] [address] Dr. Ashlie Hills Hemoglobin Ql (U) Negative Normal NEGATIVE [facility] Comment on above: Performed By: #### PEREZ DIAZICRO #### [facility] [address] [place] [address] Dr. Ashlie Hills Ketones Ql (U) Negative Normal NEGATIVE [facility] Comment on above: Performed By: #### MADELINE DIAZRO #### [facility] [address] [place] [address] Dr. Ashlie Hills LEUKOCYTES Negative Normal NEGATIVE [facility] [place] [facility] Comment on above: Performed By: #### PEREZ DIAZICRO #### [facility] [address] [place] [address] Dr. Ashlie Hills Nitrite Ql (U) Negative Normal NEGATIVE [facility] Comment on above: Performed By: #### PEREZ DIAZICRO #### [facility] [address] [place] [address] Dr. Ashlie Hills pH (U) 5.0 [pH] Normal 5-9 [facility] Comment on above: Performed By: #### PEREZ DIAZICRO #### [facility] [address] [place] [address] Dr. Ashlie Hills Protein (U) [Mass/Vol] 100 mg/dL Abnormal NEGAT YURY/ TRACE [facility] Comment on above: Performed By: #### E MADELINE LYMANRO #### [facility] [address] [place] [address] Dr. Ashlie Hills SPEC GRAVITY >=1.030 Abnormal 1.005-<=1.025 [facility] Comment on above: Performed By: #### MADELINE DIAZRO #### [facility] [address] [place] [address] Dr. Ashlie Hills UR MICRO IND INDICATED Normal [facility] [place] [facility] Comment on above: Performed By: #### MADELINE DIAZRO #### [facility] [address] [place] [address] Dr. Ashlie Hills Urobilinogen Qn (U) 1.0 {Little'U}/dL Normal 0.2 - 1. 0 [facility] [place] [facility] Comment on above: Performed By: #### MADELINE DIAZRO #### [facility] [address] [place] [address] Dr. Ashlie Hills PROF CHEM 8 (BAS METB)on Anion gap [Moles/Vol] 12.1 mmol/L Normal [facility] Comment on above: Performed By: #### I NFLUAB #### [facility] [address] [place] [address] Dr. Ashlie Hills Calcium [Mass/Vol] 9.0 mg/dL Normal 8.5-10.1 [facility] Comment on above: Performed By: #### I NFLUAB #### [facility] [address] [place] [address] Dr. Ashlie Hills Chloride [Moles/Vol] 101 mmol/L Normal 98-107 [facility] [place] [facility] Comment on above: Performed By: #### I NFLUAB #### [facility] [address] [place] [address] Dr. Ashlie Hills CO2 [Moles/Vol] 29.1 mmol/L Normal 21.0-32.0 [facility] Comment on above: Performed By: #### I NFLUAB #### [facility] [address] [address] [address] Ashlie Hills Creatinine [Mass/Vol] 0.86 mg/dL Normal 0.55-1.02 [facility] [place] [facility] Comment on above: Performed By: #### I NFLUAB #### [facility] [address] [place] [address] Dr. Ashlie Hills EGFR-AF JORDANIAN >60 Normal >=60 [facility] Comment on above: Performed By: #### I NFLUAB #### [facility] [address] [address] [address] Ashlie Hills EGFR-NON AF JORDANIAN >60 Normal >=60 [facility] [place] [facility] Comment on above: Performed By: #### I NFLUAB #### [facility] [address] [place] [address] Dr. Ashlie Hills Glucose [Mass/Vol] 236 mg/dL Critically high 74-106 [facility] Comment on above: Performed By: #### I NFLUAB #### [facility] [address] [place] [address] Dr. Ashlie Hills Potassium [Moles/Vol] 4.2 mmol/L Normal 3.5-5.1 [facility] [place] [facility] Comment on above: Performed By: #### I NFLUAB #### [facility] [address] [place] [address] Dr. Ashlie Hills Sodium [Moles/Vol] 138 mmol/L Normal 136-145 [facility] Comment on above: Performed By: #### I NFLUAB #### [facility] [address] [place] [address] Dr. Ashlie Hills Urea nitrogen [Mass/Vol] 11.0 mg/dL Normal 7.0-18.0 [facility] [place] [facility] Comment on above: Performed By: #### I NFLUAB #### [facility] [address] [place] [address] Dr. Ashlie Hills Urea nitrogen/Creatinine [Mass ratio] 12.8 mg/mg Normal [facility] Comment on above: Performed By: #### I NFLUAB #### [facility] [address] [place] [address] Dr. Ashlie Hills URINE MICROSCOPIC ONLYon BACTERIA SMALL Abnormal NONE SEEN [facility] Comment on above: Performed By: #### E RUR, UMICRO #### [facility] [address] [place] [address] Dr. Ashlie Hills Bacteria identified Cx Nom (U) INDICATED Normal [facility] Comment on above: Performed By: #### E RUR, UMICRO #### [facility] [address] [place] [address] Dr. Ashlie Hills CAST NONE SEEN Normal NONE SEEN [facility] Comment on above: Performed By: #### E RUR, UMICRO #### [facility] [address] [place] [address] Dr. Ashlie Hills Crystals LM Nom (Urine sed) NONE SEEN Normal NONE SEEN [facility] Comment on above: Performed By: #### E RUR, UMICRO #### [facility] [address] [place] [address] Dr. Ashlie Hills Epithelial cells LM Ql (Urine sed) MODERATE Abnormal NONE SEEN /RARE [facility] Comment on above: Performed By: #### E RUR, UMICRO #### [facility] [address] [place] [address] Dr. Ashlie Hills MUCOUS NONE SEEN Normal NONE SEEN [facility] Comment on above: Performed By: #### E RUR, UMICRO #### [facility] [address] [place] [address] Dr. Ashlie Hills RBC 0-2 Normal 0-2 [facility] Comment on above: Performed By: #### E RUR, UMICRO #### [facility] [address] [place] [address] Dr. Ashlie Hills WBC 0-2 Abnormal NONE SEEN [facility] Comment on above: Performed By: #### E RUR, UMICRO #### [facility] [address] [place] [address] Dr. Ashlie Hills YEAST PRESENT Abnormal NONE SEEN [facility] Comment on above: Performed By: #### E RUR, UMICRO #### [facility] [address], [place] [address] Dr. Ashlie Hills HIP RIGHT 1 OR 2 VWS WITH PE LVISon 07-20-2020 HIP RIGHT 1 OR 2 VWS WITH PELVIS [facility] Department of Radiology [address] [place] [id number] Patient Name: MITZI MACIAS : 1970 [...] MRI. Electronically signed: Pipo Acevedo. Transcribed by: [email or web address], User Resident: Electronically Signed by: PIPO ACEVEDO @ 07/20/2020 03:45 PM Normal [facility] Comment on above: Order Comment: evalu ate Vital Signs Date Time Vital Sign Value Performing Clinician Facility 10-27-2024 [id number] Body height 170.2 cm Mckayla Blas [employer] Work Phone: [facility] 10-27-2024 14:11-0400 Body mass index (BMI) [Ratio] 56.51 kg/m2 [employer]ckayla [employer] Work Phone: [facility] 10-27-2024 14:11-0400 Body temperature 98.71 [degF] [employer]ckayla Blas [employer] Work Phone: [facility] 10-27-2024 [id number] Body weight 163.66 kg Mckayla Blas [employer] Work Phone: [facility] 10-27-2024 14:11-0400 Diastolic blood pressure 74 mm[Hg] Mckayla Blas [employer] Work Phone: [facility] 10-27-2024 14:11-0400 Heart rate 75 /min Mckayla Bl[employer] Work Phone: [facility] 10-27-2024 14:11-0400 Respiratory rate 18 /min [employer]ckayla [employer] Work Phone: [facility] 10-27-2024 14:11-0400 SaO2% (BldA) [Mass fraction] 90 % [employer]ckayla Bl[employer] Work Phone: [facility] 10-27-2024 14:11-0400 Systolic blood pressure 132 mm[Hg] Mckayla Bl[employer] Work Phone: [facility] 10-08-2024 [id number] Body height 170.2 cm Rain Souza MD Work Phone: [facility] 10-08-2024 11:21-0400 Body mass index (BMI) [Ratio] 55.91 kg/m2 Rain Souza MD Work Phone: [facility] 10-08-2024 11:21-0400 Body weight 161.93 kg Rain Souza MD Work Phone: [facility] 10-08-2024 11:21-0400 Diastolic blood pressure 70 mm[Hg] Rain Souza MD Work Phone: [facility] 10-08-2024 11:21-0400 Heart rate 70 /min Rain Souza MD Work Phone: [facility] 10-08-2024 11:21-0400 Respiratory rate 16 /min Rain Souza MD Work Phone: [facility] 10-08-2024 11:21-0400 SaO2% (BldA) [Mass fraction] 91 % Rain Souza MD Work Phone: [facility] 10-08-2024 11:21-0400 Systolic blood pressure 130 mm[Hg] Rain Souza MD Work Phone: [facility] 08-27-2024 17:44-0500 Body mass index (BMI) [Ratio] 57.31 kg/m2 [employer]ckayla Blas [employer] Work Phone: [facility] 08-27-2024 17:44-0500 Body temperature 98.01 [degF] [employer]ckayla Blas [employer] Work Phone: [facility] 08-27-2024 17:44-0500 Body weight 165.97 kg Mckayla Blas [employer] Work Phone: [facility] 08-27-2024 17:44-0500 Diastolic blood pressure 76 mm[Hg] Mckayla Blas [employer] Work Phone: [facility] 08-27-2024 17:44-0500 Heart rate 83 /min Mckaylataryn Blas [employer] Work Phone: [facility] 08-27-2024 17:44-0500 Respiratory rate 18 /min Mckayla Wan [employer] Work Phone: [facility] 08-27-2024 17:44-0500 SaO2% (BldA) [Mass fraction] 91 % Mckayla Blas [employer] Work Phone: [facility] 08-27-2024 17:44-0500 Systolic blood pressure 134 mm[Hg] Mckayla Wan [employer] Work Phone: [facility] 06-11-2024 10:00-0500 Blood Pressure Location Elbert ARAUZ [facility] 06-11-2024 10:00-0500 Diastolic blood pressure 68 mm[Hg] Elbert ARAUZ [facility] 06-11-2024 10:00-0500 Heart rate 76 /min Elbert ARAUZ [facility] 06-11-2024 10:00-0500 Systolic blood pressure 132 mm[Hg] Elbert ARAUZ [facility] 05-27-2024 10:20-0500 Body height 170.2 cm Rain Souza MD Work Phone: [facility] 05-27-2024 10:20-0500 Body mass index (BMI) [Ratio] 56.7 kg/m2 Rain Souza MD Work Phone: [facility] 05-27-2024 10:20-0500 Body weight 164.2 kg Rain Souza MD Work Phone: [facility] 05-27-2024 10:20-0500 Diastolic blood pressure 66 mm[Hg] Rain Souza MD Work Phone: [facility] 05-27-2024 10:20-0500 Heart rate 72 /min Rain Souza MD Work Phone: [facility] 05-27-2024 10:20-0500 Respiratory rate 16 /min Rain Souza MD Work Phone: [facility] 05-27-2024 10:20-0500 Systolic blood pressure 128 mm[Hg] Rain Souza MD Work Phone: [facility] 04-14-2024 10:27-0400 Body height 165.1 cm Mckaylataryn Sowdona [employer] Work Phone: [facility] 04-14-2024 10:27-0400 Body mass index (BMI) [Ratio] 61.01 kg/m2 Mckayla Aichholz [employer] Work Phone: [facility] 04-14-2024 10:27-0400 Body temperature 98.49 [degF] Mckayla Juanjosehholz [employer] Work Phone: [facility] 04-14-2024 10:27-0400 Body weight 166.29 kg Mckayla Harshadholz [employer] Work Phone: [facility] 04-14-2024 10:27-0400 Diastolic blood pressure 80 mm[Hg] Mckayla Aichholz [employer] Work Phone: [facility] 04-14-2024 10:27-0400 Heart rate 77 /min Mckayla Aichholz [employer] Work Phone: [facility] 04-14-2024 10:27-0400 Respiratory rate 19 /min Mckayla Aichholz [employer] Work Phone: [facility] 04-14-2024 10:27-0400 SaO2% (BldA) [Mass fraction] 92 % Mckayla Aichholz [employer] Work Phone: [facility] 04-14-2024 10:27-0400 Systolic blood pressure 116 mm[Hg] Mckayla Juanjosehholz [employer] Work Phone: [facility] 03-08-2022 15:00-0400 Body height 170.18 cm Stephanie Tico Other [employer] Other 03-08-2022 15:00-0400 Body temperature 97.6 [degF] Stephanie Tico Other [employer] Other 03-08-2022 15:00-0400 Diastolic blood pressure 72 mm[Hg] Stephanie Tico Other [facility] Other 03-08-2022 15:00-0400 Respiratory rate 20 /min Stephanie Tico Other [facility] Other 03-08-2022 15:00-0400 SaO2% (BldA) [Mass fraction] 91 % Stephanie Tico Other [facility] Other 03-08-2022 15:00-0400 Systolic blood pressure 131 mm[Hg] Stephanie Tico Other [facility] Other 02-20-2022 09:20-0400 Body height 170.18 cm Stephanie Tico Other [facility] Other 02-20-2022 09:20-0400 Body temperature 96.5 [degF] Stephanie Tico Other [facility] Other 02-20-2022 09:20-0400 Diastolic blood pressure 69 mm[Hg] Stephanie Tico Other [facility] Other 02-20-2022 09:20-0400 Respiratory rate 20 /min Stephanie Tico Other [facility] Other 02-20-2022 09:20-0400 SaO2% (BldA) [Mass fraction] 91 % Stephanie Tico Other [facility] Other 02-20-2022 09:20-0400 Systolic blood pressure 129 mm[Hg] Stephanie Tico Other [facility] Other 02-06-2022 10:24-0400 Blood Pressure Location Elbert ARAUZ [facility] 02-06-2022 10:24-0400 Diastolic blood pressure 76 mm[Hg] Elbert ARAUZ [facility] 02-06-2022 10:24-0400 Heart rate 70 /min Elbert ARAUZ [facility] 02-06-2022 10:24-0400 Respiratory rate 16 /min Elbert ARAUZ [facility] 02-06-2022 10:24-0400 Systolic blood pressure 134 mm[Hg] Elbert ARAUZ [facility] Encounters Encounter Date Encounter Type Care Provider Facility Start: 10-27-2024 End: 10-27-2024 ambulatory MCKAYLA BLAS Not Available Start: 10-27-2024 End: 10-27-2024 Office outpatient visit 25 minutes Mckayla Blas [employer] Work Phone: [facility] Comment on above: Primary hypertension (CMS/HCC) (Primary [...] 10-21-2024 Refill Mckayla Blas NP Work Phone: [facility] Comment on above: Chronic obstructive pulmonary disease, unspecified Start: 10-08-2024 End: 10-08-2024 Clinisync Result Encounter Mckayla Blas NP Work Phone: [facility] External Department Unsolicited Start: 10-08-2024 End: 10-08-2024 Clinisync Result Encounter Mckayla Blas NP Work Phone: [facility] External Department Unsolicited Start: 10-08-2024 End: 10-08-2024 Office outpatient visit 25 minutes Rain Souza MD Work Phone: [facility] Comment on above: Type 2 diabetes asiya itus with hyperglycemia, with long-term current use of insulin (CMS/[facility]) (Primary Dx); Encounter for dietary consultation; [...] 25 minutes Mckayla Blas NP Work Phone: [facility] Comment on above: Anxiety and depressi on (CMS/HCC) (Primary Dx); Morbid (severe) obesity due to excess calories (CMS/HCC); Body mass index (BMI) 50.0-59.9, adult (CMS/HCC); Malignant neoplasm of cervix uteri, unspecified (CMS/HCC); Diabetic polyneuropathy associated with type 2 diabetes mellitus (CMS/HCC); Chronic diastolic heart failure ([facility]/HCC); Primary hypertension ([facility]); 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 ([facility]); Gastroesophageal reflux disease, unspecified whether esophagitis present; Bilateral lower extremity edema; Type 2 diabetes mellitus with complication, with long-term current use of insulin ([facility]/HCC); Tobacco user; Mixed hyperlipidemia ([facility]); Gout, unspecified cause, unspecified chronicity, unspecified site; Vitamin deficiency; Gastro-esophageal reflux disease without esophagitis; Edema, unspecified; Edema; Hyperlipidemia, unspecified ([facility]); Encounter for smoking cessation counseling; Venous ulcer of right leg ([facility]); Antibiotic-induced yeast infection Start: 08-27-2024 End: 08-27-2024 ambulatory MCKAYLA BLAS Not Available Start: 08-27-2024 End: 08-27-2024 Clinisync Result Encounter Generic External Data Provider [facility] External Department Unsolicited Start: 08-27-2024 End: 08-27-2024 Clinisync Result Encounter Generic External Data Provider [facility] External Department Unsolicited Start: 08-08-2024 End: 08-08-2024 ambulatory [facility] Start: 07-17-2024 End: 07-17-2024 Refill Mckayla Blas NP Work Phone: [facility] Start: 07-14-2024 End: 07-14-2024 Office outpatient visit 25 minutes Mckayla Blas NP Work Phone: [facility] Comment on above: Primary hypertension ([facility]) (Primary Dx); Diabetic polyneuropathy associated with type 2 diabetes mellitus ([facility]); Pulmonary emphysema, unspecified emphysema type ([facility]); Critical limb ischemia of right lower extremity ([facility]); PAD (peripheral artery disease) ([facility]); Gastroesophageal reflux disease, unspecified whether esophagitis present; Bilateral lower extremity edema; Venous ulcer of right leg ([facility]); Type 2 diabetes mellitus with complication, with long-term current use of insulin ([facility]); Tobacco user; Encounter for smoking cessation counseling; Kidney stone; Adrenal mass 1 cm to 4 cm in diameter ([facility]); Radiculopathy, lumbar region; Non-seasonal allergic rhinitis, unspecified trigger; Type 2 diabetes mellitus with unspecified complications ([facility]) Start: 07-14-2024 End: 07-14-2024 ambulatory MCKAYLA AICHHOLZ Not Available Start: 07-05-2024 End: 07-07-2024 Refill Mckayla Aicmickeyz [employer] AIDE Work Phone: [facility] Comment on above: Bilateral lower extr emity edema Start: 06-11-2024 ambulatory Elbert ARAUZ Facili ty:[facility] [place] Start: 06-11-2024 End: 06-11-2024 Patient encounter procedure Elbert ARAUZ [facility] [place] Start: 05-27-2024 End: 05-27-2024 Bamboo flowsheet Rain Souza MD Work Phone: [facility] Start: 05-27-2024 End: 05-27-2024 Bamboo flowsheet Rain Souza MD Work Phone: [facility] Start: 05-27-2024 End: 05-27-2024 ambulatory RAIN SOUZA Not Available Start: 05-27-2024 End: 05-27-2024 Office outpatient visit 25 minutes Rain Souza MD Work Phone: [facility] Comment on above: Type 2 diabetes asiya itus with hyperglycemia, with long-term current use of insulin ([facility]) (Primary Dx); Encounter for dietary consultation; Vitamin D deficiency; Primary hypertension ([facility]); Insulin long-term use ([facility]); Hyperlipemia, mixed ([facility]); Microalbuminuria; Class 3 severe obesity due to excess calories with serious comorbidity and body mass index (BMI) of 50.0 to 59.9 in adult ([facility]) Start: 05-12-2024 End: 05-12-2024 Clinisync Result Encounter Generic External Data Provider [facility] External Department Unsolicited Start: 05-12-2024 End: 05-12-2024 Clinisync Result Encounter Generic External Data Provider [facility] External Department Unsolicited Start: 05-08-2024 ambulatory SARAH Wilkerson ty:SHEA Wilfredo Start: 04-14-2024 End: 04-14-2024 Bamboo flowsheet Mckaylataryn Blas [employer]CHO[employer] AIDE Work Phone: [facility] Start: 04-14-2024 End: 04-14-2024 Bamboo flowsheet Mckayla Wan [employer] AIDE Work Phone: [facility] Start: 04-14-2024 End: 04-14-2024 Office outpatient visit 25 minutes Mckayla Blas [employer] Work Phone: [facility] Comment on above: Primary hypertension (CMS/HCC) (Primary [...] Start: 04-05-2024 End: 04-06-2024 Refill Mckayla Aichholz [employer] Work Phone: [facility] Comment on above: Hyperlipidemia, unsp ecified (CMS/HCC); Bilateral lower extremity edema Vitamin D deficiency , unspecified Start: 01-17-2024 Patient encounter procedure Rain Souza MD Work Phone: [facility] Start: 01-17-2024 End: 01-17-2024 ambulatory MCKAYLA AICHHOLZ Not Available Start: 11-15-2023 End: 11-15-2023 ambulatory MCKAYLA AICHHOLZ Not Available Start: 11-14-2023 End: 11-14-2023 ambulatory [facility] Start: 11-01-2023 End: 11-01-2023 ambulatory MCKAYLATaryn BLAS Not Available Start: 08-17-2023 Refill Mckayla Aichholz [employer] Work Phone: [facility] Comment on above: Vaginal yeast infect ion (Primary Dx) Start: 08-14-2023 Refill Mckayla Aichholz [employer]IDE Work Phone: [facility] Comment on above: Type 2 diabetes asiya itus with unspecified complications (CMS/[facility]); Edema, unspecified; Edema Start: 12-05-2022 ambulatory NARENDRANSHERITA NICHOLEMIPATHY . Facility:[facility] Start: 12-05-2022 End: 12-06-2022 Evaluation and management of inpatient UMBERTO ALONDRA . 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 Facility:[facility] Start: 11-15-2022 End: 11-15-2022 Patient encounter procedure SARAH VEGA [facility] Start: 10-05-2022 End: 10-05-2022 ambulatory MARIANO DIAB . Facility:[facility] Start: 09-21-2022 End: 09-21-2022 ambulatory FLATB[employer] OWNER OPERATOR MCKAYLA AICHHOLZ Facility:[facility] Start: 09-14-2022 ambulatory RAFAEL [...] 03-08-2022 End: 03-08-2022 ambulatory Stephanie Tico Other [facility] Other Start: 03-08-2022 Office outpatient vi sit 15 minutes Stephanie Tico [facility] Start: 03-03-2022 End: 03-04-2022 ambulatory SAYDA BLAS Facility:[facility] Start: 02-20-2022 End: 02-20-2022 ambulatory Stephanie Tico Other [facility] Other Start: 02-20-2022 Office outpatient ne w 45 minutes Stephanie Tico [facility] Start: 02-06-2022 End: 02-06-2022 Patient encounter procedure Elbert ARAUZ [facility] Start: 01-19-2022 End: 01-20-2022 ambulatory GIL VALENZUELA . Facility:[facility] Start: 12-24-2021 End: 12-24-2021 ambulatory OLE RAMIREZ Facility:[facility] Start: 08-26-2020 End: 09-10-2020 Patient encounter procedure MARY TAVERAS Facility:[facility] Start: 10-30-2019 End: 10-30-2019 Emergency department patient visit JAMES Reis [facility] Start: 10-30-2019 End: 10-30-2019 Emergency department patient visit James Mandujanorogelio [facility] Emergency Department Start: 11-02-2016 Preoperative state Stephanie Cortés Other [facility] TISSUELAB Other Procedures Date Procedure Procedure Detail Performing Clinician Start: 10-08-2024 Gluc bld gluc mntr d ev cleared fda spec home use Rain Souza MD Work Phone: Start: 10-08-2024 [facility] UA (CLEAN/CATCH) MICROSCOPIC IF INDICATE Mckayla Blas [employer]IDE Work Phone: Start: 08-27-2024 ALL CBC WITH AUTO DIFF Generic External Data Provider Start: 05-27-2024 Gluc bld gluc mntr d ev cleared fda spec home use Rain Souza MD Work Phone: Start: 05-12-2024 [facility] CREATININE Generic External Data Provider Start: 12-14-2023 Mammography Rain urena MD Work Phone: Start: 11-22-2022 Mammography Mckayla clifford [employer] Work Phone: Start: 10-08-2015 Microscopic observat ion [Identifier] in Cervix by Cyto stain Mckayla Blas [employer] AIDE Work Phone: H/O: hysterectomy Elbert LARA Laparoscopic cholecystectomy Elbert ARAUZ Operative procedure on foot Elbert ARAUZ Plan of Treatment Date Care Activity Detail Author Start: 10-08-2025 Urine screening for protein Diabetes: Urine Protein Screening [facility] Start: 08-03-2025 Screening for malignant neoplasm of colon [facility] Start: 07-14-2025 Glaucoma screening Diabetes: R etinopathy Screening [facility] Start: 05-13-2025 Glaucoma screening Diabetes: R etinopathy Screening [facility] Start: 03-09-2025 Influenza vaccination Influenz a Vaccine (Season Ended) [facility] Start: 01-28-2025 End: 01-28-2025 Patient encounter procedure 01/28/2025 10:50 AM EDT [facility] [address] [place] [address] Rain Souza MD [address] [place] [address] [facility] Start: 01-16-2025 Medicare Annual Wellness (AWV) Medicare Annual Wellness (AWV) [facility] Start: 01-07-2025 Hemoglobin A1c measurement Diabetes: Hemoglobin A1C [facility] Start: 12-15-2024 End: 12-27-2025 MG Breast - bilateral Screening Bilateral screening mammogram Imaging Routine Encounter for screening mammogram for malignant neoplasm of breast Expected: 12/15/2024 (Approximate), Expires: 12/27/2025 [facility] Work Phone: Comment on above: Expected: 12/15/2024 (Approximate), Expires: 12/27/2025 Start: 12-13-2024 Screening for malignant neoplasm of breast Mammogram [facility] Start: 11-11-2024 Urine screening for protein Diabetes: Urine Protein Screening [facility] Start: 10-27-2024 End: 10-27-2024 Patient encounter procedure 10/27/2024 2:00 PM EDT Office Visit [facility] [address] [place] [address] Mckayla Blas, SILVANO [address] [place] [address] [facility] Start: 10-08-2024 End: 10-08-2024 Patient encounter procedure 10/08/2024 11:20 AM EDT Office Visit [facility] [address] [place] [address] Rain Souza MD [address] [place] [address] [facility] Start: 08-27-2024 End: 08-27-2024 Patient encounter procedure 08/27/2024 5:30 PM EST Office Visit [facility] [address] [place] [id number] Mckayla Blas NP [address] [place] [address] [facility] Start: 08-27-2024 End: 08-27-2025 25-hydroxyvitamin D3 [Mass/volume] in Serum or Plasma Vitamin D 25 hydroxy Lab Routine Vitamin deficiency Expected: 08/27/2024 (Approximate), Expires: 08/27/2025 [facility] Comment on above: Expected: 08/27/2024 (Approximate), Expires: 08/27/2025 Start: 08-27-2024 Hemoglobin A1c measurement Diabetes: Hemoglobin A1C [facility] Start: 08-27-2024 End: 08-27-2025 Hepatic function 2000 panel - Serum or Plasma Hepatic function panel Lab Routine Hyperlipidemia, unspecified (CMS/HCC) Expected: 08/27/2024 (Approximate), Expires: 08/27/2025 [facility] Comment on above: Expected: 08/27/2024 (Approximate), Expires: 08/27/2025 Start: 08-27-2024 End: 08-27-2025 Lipid 1996 panel - Serum or Plasma Lipid panel Lab Routine Mixed hyperlipidemia (CMS/HCC) Expected: 08/27/2024 (Approximate), Expires: 08/27/2025 [facility] Work Phone: Comment on above: Expected: 08/27/2024 (Approximate), Expires: 08/27/2025 Start: 08-27-2024 End: 08-27-2025 Microalbumin/Creatini ne panel in random Urine Microalbumin / creatinine, urine ratio Lab Routine Primary hypertension (CMS/HCC) Type 2 diabetes mellitus with complication, with long-term current use of insulin (CMS/HCC) Expected: 08/27/2024 (Approximate), Expires: 08/27/2025 [facility] Comment on above: Expected: 08/27/2024 (Approximate), Expires: 08/27/2025 Start: 08-27-2024 End: 08-27-2025 Urate [Mass/volume] in Serum or Plasma Uric acid Lab Routine Gout, unspecified cause, unspecified chronicity, unspecified site Expected: 08/27/2024 (Approximate), Expires: 08/27/2025 [facility] Comment on above: Expected: 08/27/2024 (Approximate), Expires: 08/27/2025 Start: 08-27-2024 End: 08-27-2025 Urinalysis complete panel - Urine Urinalysis with reflex microscopic (clean catch) Lab Routine Primary hypertension ([facility]) Type 2 diabetes mellitus with complication, with long-term current use of insulin ([facility]) Tobacco user Gout, unspecified cause, unspecified chronicity, unspecified site Expected: 08/27/2024 (Approximate), Expires: 08/27/2025 [facility] Comment on above: Expected: 08/27/2024 (Approximate), Expires: 08/27/2025 Start: 08-26-2024 End: 08-26-2024 Patient encounter procedure 08/26/2024 10:30 AM EST Office Visit [facility] [address] [place] [address] Rain Souza MD [address] [place] [address] [facility] Start: 07-14-2024 End: 07-14-2024 Patient encounter procedure 07/14/2024 6:30 PM EST Office Visit [facility] [address] [place] [address] Mckayla Blas NP [address] [place] [address] [facility] Start: 07-14-2024 End: 07-14-2024 Patient encounter procedure 07/14/2024 10:10 AM EST Office Visit [facility] [address] [place] [address] Rain Souza MD [address] [place] [address] [facility] Start: 06-06-2024 Influenza vaccination Influenza Vacc ine (#1) [facility] Comment on above: Postponed from 03/09 (Patient Refused) Start: 05-27-2024 End: 05-27-2024 Patient encounter procedure 05/27/2024 9:50 AM EST Office Visit [facility] [address] [place] [address] Rain Souza MD [address] [place] [address] [facility] Start: 05-17-2024 Hemoglobin A1c measurement Diabetes: Hemoglobin A1C [facility] Start: 05-15-2024 End: 05-15-2024 Chart abstracting 05/15/2024 Abstract [facility] [address] [place] [address] Rain Souza MD [address] [place] [address] [facility] Start: 05-15-2024 End: 05-15-2024 Patient encounter procedure 05/15/2024 11:20 AM EST Office Visit [facility] [address] [place] [phone] Rain Souza MD [address] [place] [address] [facility] Start: 04-17-2024 End: 04-17-2024 Patient encounter procedure 04/17/2024 3:40 PM EDT Office Visit [facility] [address] [place] [address] Mckayla Blas, SILVANO [address] [place] [address] [facility] Start: 04-14-2024 End: 04-14-2024 Patient encounter procedure 04/14/2024 11:00 AM EDT Office Visit [facility] [address] [place] [address] Mckayla Blas NP [address] [place] [phone] Arrived [facility] Comment on above: Arrived Start: 03-09-2024 Influenza vaccination Influenza Vacc ine (#1) [facility] Start: 02-19-2024 Hemoglobin A1c measurement Diabetes: Hemoglobin A1C [facility] Start: 11-24-2023 Urine screening for protein Diabetes: Urine Protein Screening [facility] Start: 11-23-2023 Screening for malignant neoplasm of breast Mammogram [facility] Start: 10-15-2023 End: 10-15-2023 Patient encounter procedure 10/15/2023 4:30 PM EDT [facility] [address] [place] [address] Mckayla Blas, SILVANO [address] [place] [phone] [facility] Start: 08-09-2023 Hemoglobin A1c measurement Diabetes: Hemoglobin A1C [facility] Start: 05-27-2021 Glaucoma screening Diabetes: R etinopathy Screening [facility] Start: 03-09-2020 Influenza vaccination Flu vacc ine (Season Ended) [place], [place] Start: 10-07-2018 Screening for malignant neoplasm of cervix [facility] Start: 2010 Lipid panel Lipid screen [place], [place] Start: 2000 Screening for malignant neoplasm of cervix HPV/Cotest [facility] Start: 1991 Screening for malignant neoplasm of cervix Cervical cancer screen [place], [place] Start: 1989 DTaP/Tdap/Td vaccine (1 - Tdap) DTaP/Tdap/Td vaccine (1 - Tdap) [place], [place] Start: 1985 HIV screening HIV screen Shantelle Alvarado [place], [place] Start: 1970 Medicare Annual Wellness (AWV) Medicare Annual Wellness (AWV) [facility] Start: 1970 Screening for malignant neoplasm of colon [facility] Immunizations Immunization Date Immunization Notes Care Provider Fa [facility] 05-18-2023 influenza, injectabl e, quadrivalent, contains preservative Mckayla Blas [employer] Work Phone: [facility] 05-18-2023 influenza virus vacc ine, unspecified formulation Rain Souza MD Work Phone: [facility] 07-19-2021 SARS-CoV-2 (COVID-19 ) mRNA BNT-162b2 vax [employer] [facility] 10-28-2020 SARS-CoV-2 (COVID-19 ) mRNA BNT-162b2 vax [employer] [facility] 10-08-2020 SARS-CoV-2 (COVID-19 ) mRNA BNT-162b2 vax [employer] [facility] 04-16-2017 influenza virus vacc ine, H5N1, A/[place]/ (national stockpile) Mckayla Blas [employer] Work Phone: [facility] 04-16-2017 influenza virus vacc ine, unspecified formulation Rain Souza MD Work Phone: [facility] 04-16-2017 influenza, unspecifi ed formulation Elbert ARAUZ [facility] 04-16-2017 pneumococcal polysaccharide vaccine, 23 valent Rain Souza MD Work Phone: [facility] 05-10-2016 influenza virus vacc ine, H5N1, A/[place] (national stockpile) Mckayla Blas NP Work Phone: [facility] 05-10-2016 influenza virus vacc ine, unspecified formulation Rain Souza MD Work Phone: [facility] 05-10-2016 influenza, unspecifi ed formulation Elbert ARAUZ [facility] 05-02-2013 influenza virus vacc ine, whole virus Rain Souza MD Work Phone: [facility] 05-02-2013 influenza, injectabl e, quadrivalent, contains preservative Mckayla Blas NP Work Phone: [facility] 05-02-2013 influenza, whole Elbert BARBARA ARAMBULA [facility] 01-29-1998 measles, mumps and rubella virus vaccine Rain Souza MD Work Phone: [facility] Payers Date Payer Category Payer Medicare (Managed Care) [employer] [id number] 2023 Private Health Insurance [facility] [id number] 2023-Present [address] [address] [place] [address] [id number] 2023 Medicare [id number] 2023 Private Health Insurance [id number] 2018 Medicaid MEDICAID [facility] [id number] 2018-Present [phone] [address] [place] [address] Medicaid [id number] 2017 Medicare [id number]. [id number]. [id number] 1970 Unknown [id number] 2.16.840.1.265803.3.579.2. 647 1970 Unknown [id number] 2.16.840.1.811440.3.579.2. 593 1970 Unknown [id number] 2.16.840.1.372666.3.579.2. 593 1970 Unknown [id number] 2.16.840.1.131859.3.579.2. 593 1970 Unknown [id number] 2.16.840.1.012506.3.579.2. 593 1970 Unknown [id number] 2.16.840.1.436736.3.579.2. 593 1970 Unknown [id number] 2.16.840.1.367758.3.579.2. 593 1970 Unknown [id number] 2.16.840.1.614686.3.579.2. 593 1970 Unknown [id number] 2.16.840.1.478351.3.579.2. 593 1970 Unknown [id number] 2.16.840.1.381769.3.579.2. 593 1970 Unknown [id number] 2.16.840.1.304502.3.579.2. 593 1970 Unknown [id number] 2.16.840.1.836296.3.579.2. 593 1970 Unknown [id number] 2.16.840.1.628556.3.579.2. 593 1970 Unknown [id number] 2.16.840.1.365889.3.579.2. 593 1970 Unknown [id number] 2.16.840.1.392655.3.579.2. 593 1970 Unknown [id number] 2.16.840.1.944466.3.579.2. 593 1970 Unknown [id number] 2.16.840.1.075684.3.579.2. 593 1970 Unknown [id number] 2.16.840.1.675524.3.579.2. 593 1970 Unknown [id number] 2.16.840.1.939516.3.579.2. 593 1970 Unknown [id number] 2.840.1.820477.3.579.2. 593 1970 Unknown [id number] 2.16.840.1.063448.3.579.2. 593 1970 Unknown [id number] .16.840.1.703953.3.579.2. 593 1970 Unknown [id number] 2.16.840.1.377904.3.579.2. 593 1970 Unknown [id number] 2.16.840.1.768269.3.579.2. 727 1970 Unknown [id number] 2.16.840.1.485012.3.579.2. 727 1970 Unknown [id number] 2.16.840.1.193084.3.579.2. 1259 1970 Unknown [id number] 2.16.840.1.283607.3.579.2. 1259 1970 Unknown [id number] 2.16.840.1.082625.3.579.2. 1259 1970 Unknown [id number] 2.16.840.1.105558.3.579.2. 1259 1970 Unknown [id number] 2.16.840.1.296572.3.579.2. 9 1970 Unknown [id number] 2.16.840.1.076680.3.579.2. 1258 1970 Unknown [id number] 2.16.840.1.781707.3.579.2. 9 1970 Unknown [id number] 2.16.840.1.941343.3.579.2. 9 1970 Unknown [id number] 2.16.840.1.621915.3.579.2. 1259 1959 Medicaid [id number] 1959 Private Health Insurance [id number] 1959 Unknown [id number] 2.16.840.1.449574.19 Social History Date Type Detail Facility Start: 02-17-2014 End: 07-10-2023 Tobacco smoking status NHIS Current every day smoker [place], [place] Start: 02-17-1994 History of tobacco use Cigarette Smo ker [place] Start: 02-17-2014 End: 08-26-2024 Cigarettes smoked current (pack per day) - Reported [place] Start: 02-17-2014 Alcohol intake Current drinke r of alcohol (finding) [place] Start: 02-17-2014 Alcohol Comment Rare [place], [place] Start: 1970 Sex Assigned At Not on file M [place], [place] Exposure to SARS-CoV -2 (event) Unable to assess [place] Start: 02-06-2022 Tobacco smoking status Smoker (findi ng) [facility] Start: 07-10-2023 End: 08-26-2024 Sex Assigned At Female [facility] Start: 11-15-2022 End: 06-11-2024 Tobacco smoking status Heavy tobacco smoker (finding) [facility] Start: 07-10-2023 Tobacco use and exposure Smoke less tobacco non-user [facility] Start: 07-10-2023 End: 10-27-2024 Alcohol intake Lifetime non-drinker (finding) [facility] Within the last year , have you been afraid of your partner or ex-partner? No [facility] Do you belong to any clubs or organizations such as evangelical groups, [employer], [employer] or athletic groups, or school groups? Yes [...] Equipment Origin al Text Equipment Identifier Dates [id number] Start: 01-18-2024 USE TO TEST BLOO D SUGAR 4 TIMES DAILY [id number] Start: 07-07-2024 Functional Status Date Assessment Result Facility 06-11-2024 Functional Status N/A [facility] 11-15-2022 Functional Status N/A [facility] 02-06-2022 Functional Status N/A [facility] Clinical Notes 01-19-2022 to 10-27-2024 Mckayla Blas NP - 10/27/2024 2:39 PM Savannah Blas NP - 10/27/2024 2:38 PM Savannah Blas NP - 10/27/2024 2:38 PM Savannah Blas NP - 10/27/2024 2:00 PM EDTPatient Instructions Note Date & Type Note Facility 10-27-2024 History of Present illness Narrative Associated Problem(s): Venous ulcer of right leg ([facility]) Continue with wound care and management [...] PPI Associated Problem(s): PAD (peripheral artery disease) ([facility]) Asa, statin Quit smoking BP and [...] 25 mg, Oral, 2 times daily HYDROcodone-acetaminophen (Sanostee) 5-325 MG tablet 1 tablet, 3 times [...] CT Albuminuria 09/17/2023 Angiomyolipoma Anxiety and depression ([facility]) 07/10/2023 Asthma 07/10/2023 Body mass index (BMI) 50.0-59.9, adult ([facility]) Cellulitis of left lower extremity Cervical cancer ([facility]) 09/17/2023 Chronic pain of both knees 09/17/2023 COPD (chronic obstructive pulmonary disease) ([facility]) 07/10/2023 COPD exacerbation ([facility]) 09/17/2023 Decreased functional mobility 09/17/2023 Diabetic neuropathy ([facility]) 07/10/2023 Dietary counseling and surveillance Edema 07/10/2023 Elevated sed rate Elevated WBC count Essential (primary) hypertension ([facility]) GERD (gastroesophageal reflux disease) 09/17/2023 Hyperlipidemia ([facility]) 09/17/2023 Hypertension ([facility]) 07/10/2023 Insomnia 09/17/2023 USP (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 ([facility]) Lower extremity edema 09/17/2023 Mixed hyperlipidemia ([facility]) Morbid (severe) obesity due to excess calories ([facility]) Obstructive sleep apnea 07/10/2023 PAD (peripheral artery disease) ([facility]) 09/17/2023 Pancreatitis 09/17/2023 Pneumonia 09/17/2023 Proteinuria, unspecified Pulmonary hypertension ([facility]) 09/17/2023 Radiculopathy, lumbar region 09/17/2023 Tobacco user 09/17/2023 Type 2 diabetes mellitus with complication, with long-term current use of insulin ([facility]) 07/10/2023 Unilateral primary [...] complication, with long-term current use of insulin ([facility]) Check blood sugars daily, notify if [...] 25 MG tablet PAD (peripheral artery disease) ([facility]) Asa, statin Quit smoking BP and [...] Morbid (severe) obesity due to excess calories ([facility]) Discussed with patient their BMI (actual, [...] mounjaro for DM Chronic diastolic heart failure ([facility]) Current meds; asa, farxiga, lasix, hydralazine, lisinopril, Follows with cardilogy Reviewed 08/02 notes Cigarette nicotine dependence without complication Is currently using chantix, and is doing well, less desire, smoking less Vitamin D deficiency, unspecified Relevant Medications ergocalciferol (Vitamin D2) 1.25 MG (17822 UT) capsule Gastro-esophageal reflux disease without esophagitis Relevant Medications omeprazole (PriLOSEC) [address] capsule Other Visit Diagnoses Type 2 diabetes mellitus with unspecified complications Relevant Medications dapagliflozin (Farxiga) 10 MG Associated Problem(s): Cigarette nicotine dependence without complication Is currently using chantix, and is doing well, less desire, smoking less Associated Problem(s): Anxiety and depression ([facility]) Current meds: elavil, duloxtine, Associated Problem(s): Type 2 diabetes mellitus with complication, with long-term current use of insulin ([facility]) Check blood sugars daily, notify if [...] A1c is 7.4%!!! documented in this encounter [facility] 10-27-2024 Instructions Mckayla Blas NP - 10/27/2024 2:00 PM EDT No dose changes in meds You will be due for mammogram I will send order to [facility], they should call you to schedule If no call, please call [phone] ext [phone] documented in this encounter [facility] 10-08-2024 History of Present illness Narrative [...] 07/2020 New patient sent from Mckayla Blas [facility], for uncontrolled diabetes. A1c 10.3. She [...] or chew. ergocalciferol (Vitamin D2) 1.25 MG (36256 UT) capsule TAKE 1 CAPSULE BY MOUTH [...] 25 mg, Oral, 2 times daily HYDROcodone-acetaminophen (Sanostee) 5-325 MG tablet 1 tablet, 3 times [...] CT Albuminuria 09/17/2023 Angiomyolipoma Anxiety and depression ([facility]) 07/10/2023 Asthma ([facility]) 07/10/2023 Body mass index (BMI) 50.0-59.9, adult ([facility]) Cellulitis of left lower extremity Cervical cancer ([facility]) 09/17/2023 Chronic pain of both knees 09/17/2023 COPD (chronic obstructive pulmonary disease) ([facility]) 07/10/2023 COPD exacerbation ([facility]) 09/17/2023 Decreased functional mobility 09/17/2023 Diabetic neuropathy ([facility]) 07/10/2023 Dietary counseling and surveillance Edema 07/10/2023 Elevated sed rate Elevated WBC count Essential (primary) hypertension ([facility]) GERD (gastroesophageal reflux disease) 09/17/2023 Hyperlipidemia ([facility]) 09/17/2023 Hypertension ([facility]) 07/10/2023 Insomnia 09/17/2023 USP (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 ([facility]) Lower extremity edema 09/17/2023 Mixed hyperlipidemia ([facility]) Morbid (severe) obesity due to excess calories ([facility]) Obstructive sleep apnea 07/10/2023 PAD (peripheral artery disease) ([facility]) 09/17/2023 Pancreatitis 09/17/2023 Pneumonia 09/17/2023 Proteinuria, unspecified Pulmonary hypertension ([facility]) 09/17/2023 Radiculopathy, lumbar region 09/17/2023 Tobacco user 09/17/2023 Type 2 diabetes mellitus with complication, with long-term current use of insulin ([facility]) 07/10/2023 Unilateral primary [...] hyperglycemia, with long-term current use of insulin ([facility]) - POCT glucose manually resulted - [...] months (around 02/07/2025). documented in this encounter [facility] 08-27-2024 History of Present illness Narrative [...] or chew. ergocalciferol (Vitamin D2) 1.25 MG (30973 UT) capsule TAKE 1 CAPSULE BY MOUTH [...] 25 mg, Oral, 2 times daily HYDROcodone-acetaminophen (Sanostee) 5-325 MG tablet 1 tablet, 3 times [...] CT Albuminuria 09/17/2023 Angiomyolipoma Anxiety and depression ([facility]) 07/10/2023 Asthma ([facility]) 07/10/2023 Body mass index (BMI) 50.0-59.9, adult ([facility]) Cellulitis of left lower extremity Cervical cancer ([facility]) 09/17/2023 Chronic pain of both knees 09/17/2023 COPD (chronic obstructive pulmonary disease) ([facility]) 07/10/2023 COPD exacerbation ([facility]) 09/17/2023 Decreased functional mobility 09/17/2023 Diabetic neuropathy ([facility]) 07/10/2023 Dietary counseling and surveillance Edema 07/10/2023 Elevated sed rate Elevated WBC count Essential (primary) hypertension ([facility]) GERD (gastroesophageal reflux disease) 09/17/2023 Hyperlipidemia ([facility]) 09/17/2023 Hypertension ([facility]) 07/10/2023 Insomnia 09/17/2023 USP (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 ([facility]) Lower extremity edema 09/17/2023 Mixed hyperlipidemia ([facility]) Morbid (severe) obesity due to excess calories ([facility]) Obstructive sleep apnea 07/10/2023 PAD (peripheral artery disease) ([facility]) 09/17/2023 Pancreatitis 09/17/2023 Pneumonia 09/17/2023 Proteinuria, unspecified Pulmonary hypertension ([facility]) 09/17/2023 Radiculopathy, lumbar region 09/17/2023 Tobacco user 09/17/2023 Type 2 diabetes mellitus with complication, with long-term current use of insulin ([facility]) 07/10/2023 Unilateral primary osteoarthritis, right hip [...] List Items Addressed This Visit Diabetic neuropathy ([facility]) Continue with cintia hudson mgmt is prescribing OARRS reviewed Fu in 3 months Goal: tighter glucose control Hypertension ([facility]) Please check blood pressure daily and [...] complication, with long-term current use of insulin ([facility]) Check blood sugars daily, notify if [...] / creatinine, urine ratio Anxiety and depression ([facility]) - Primary Current meds: elavil, duloxtine, [...] of the risks of continued smoking: stroke, HI, all forms of cancer, lung disease, and [...] of the risks of continued smoking: stroke, HI, all forms of cancer, lung disease, and [...] Morbid (severe) obesity due to excess calories ([facility]) Discussed with patient their BMI (actual, [...] Problem(s): Malignant neoplasm of cervix uteri, unspecified ([facility]) Had in the past, had hysterectomy [...] Associated Problem(s): COPD (chronic obstructive pulmonary disease) ([facility]) Follows with verena Needs smoking cessation Current meds: duoneb, albuterol, daliresp, Associated Problem(s): Asthma ([facility]) Current meds: albuterol, duoneb, 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 [facility] 07-14-2024 History of Present illness Narrative [...] or chew. ergocalciferol (Vitamin D2) 1.25 MG (72989 UT) capsule TAKE 1 CAPSULE BY MOUTH ONE TIME PER WEEK furosemide (LASIX) 40 mg, Oral, Daily furosemide (LASIX) 20 mg, Oral, Daily PRN, Take in the afternoon as needed hydrALAZINE (APRESOLINE) 25 mg, Oral, 2 times daily HYDROcodone-acetaminophen (Sanostee) 5-325 MG tablet 1 tablet, 3 times [...] CT Albuminuria 09/17/2023 Angiomyolipoma Anxiety and depression ([facility]) 07/10/2023 Asthma ([facility]) 07/10/2023 Body mass index (BMI) 50.0-59.9, adult ([facility]) Cellulitis of left lower extremity Cervical cancer ([facility]) 09/17/2023 Chronic pain of both knees 09/17/2023 COPD (chronic obstructive pulmonary disease) ([facility]) 07/10/2023 COPD exacerbation ([facility]) 09/17/2023 Decreased functional mobility 09/17/2023 Diabetic neuropathy ([facility]) 07/10/2023 Dietary counseling and surveillance Edema 07/10/2023 Elevated sed rate Elevated WBC count Essential (primary) hypertension ([facility]) GERD (gastroesophageal reflux disease) 09/17/2023 Hyperlipidemia ([facility]) 09/17/2023 Hypertension ([facility]) 07/10/2023 Insomnia 09/17/2023 USP (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 ([facility]) Lower extremity edema 09/17/2023 Mixed hyperlipidemia ([facility]) Morbid (severe) obesity due to excess calories ([facility]) Obstructive sleep apnea 07/10/2023 PAD (peripheral artery disease) ([facility]) 09/17/2023 Pancreatitis 09/17/2023 Pneumonia 09/17/2023 Proteinuria, unspecified Pulmonary hypertension ([facility]) 09/17/2023 Radiculopathy, lumbar region 09/17/2023 Tobacco user 09/17/2023 Type 2 diabetes mellitus with complication, with long-term current use of insulin ([facility]) 07/10/2023 Unilateral primary osteoarthritis, right hip [...] List Items Addressed This Visit Diabetic neuropathy ([facility]) Continue with tristan EAST reviewed Fu in 3 months COPD (chronic obstructive pulmonary disease) ([facility]) Stable at this time, no changes in meds Encouraged smoking cessation Cont with dr Yañez Hypertension ([facility]) - Primary Please check blood pressure daily and record DASH diet Limit caffeine Take medication as directed Contact office if chest pain, pressure, dizziness, shortness of breath, swelling legs Recommend slow position changes Current meds: hydralazine, lisinopril, Type 2 diabetes mellitus with complication, with long-term current use of insulin ([facility]) Check blood sugars daily, notify if [...] of the risks of continued smoking: stroke, HI, all forms of cancer, lung disease, and [...] of the risks of continued smoking: stroke, HI, all forms of cancer, lung disease, and [...] complication, with long-term current use of insulin ([facility]) Check blood sugars daily, notify if [...] PPI Associated Problem(s): PAD (peripheral artery disease) ([facility]) Asa, statin Quit smoking BP and DM control Associated Problem(s): Hypertension ([facility]) Please check blood pressure daily and record DASH diet Limit caffeine Take medication as directed Contact office if chest pain, pressure, dizziness, shortness of breath, swelling legs Recommend slow position changes Current meds: hydralazine, lisinopril, Associated Problem(s): COPD (chronic obstructive pulmonary disease) ([facility]) Stable at this time, no changes in meds Encouraged smoking cessation Cont with dr Yañez Associated Problem(s): Diabetic neuropathy ([facility]) Continue with tristan EAST reviewed Fu in 3 months documented in this encounter [facility] 06-11-2024 Hospital Discharge instructions Patient Education [...] require a prescription. You can also purchase yahs-uzs-[id number] medicines. Medicines may have nicotine in them [...] and encouragement. Call telephone quitlines, such as 1-675-LOFA-NOW, reach out to support groups, or work [...] provider. Document Revised: 06/16/2022 Document Reviewed: 06/16/2022 [employer] Patient Education 2023 [employer]. 06/11/2024 10:39:22 Dietary Guidelines to Help Prevent [...] include: ?8 oz (237 mL) of milk, pofplag-kixzrjsuekjx-wmbpf milk, and calcium-fortifiedfruit juice. Calcium-fortified means that [...] potatoes, and American chard. ?Peanuts. ?Potato chips, [place] citizen fries, and baked potatoes with skin on. ?Nuts and nut products. ?Chocolate. If you regularly take a diuretic medicine, make sure to eat at least 1 or 2 servings of fruits or vegetables that are high in potassium each day. These include: ?Avocado. ?Banana. ?[place], prune, carrot, or tomato juice. ?Baked potato. [...] magnesium, fish oil, or vitamin B6. Take nzzn-hms-bfrmesn and prescription medicines only as told by [...] Casseroles. Pizza. Lasagna. Frozen meals. Potato chips. [place] Citizen fries. The items listed above may not [...] provider. Document Revised: 10/05/2022 Document Reviewed: 10/05/2022 [employer] Patient Education 2023 [employer]. Follow Up Care 05/06/2024 08:24:56 With:REGLA PHIPPS, Elbert Joya, URL Address: [facility] [address], [place] [address]- When: Unknown [facility] 05-27-2024 History of Present illness [...] or chew. ergocalciferol (Vitamin D2) 1.25 MG (18760 UT) capsule TAKE 1 CAPSULE BY MOUTH ONE TIME PER WEEK furosemide (LASIX) 20 mg, Oral, Daily PRN, Take in the afternoon as needed furosemide (LASIX) 40 mg, Oral, Daily Glucose Blood (ACCU-CHEK JAQUI PLUS ) 4 times daily hydrALAZINE (APRESOLINE) 25 mg, Oral, 2 times daily HYDROcodone-acetaminophen (Sanostee) 5-325 MG tablet 1 tablet, 3 times [...] CT Albuminuria 09/17/2023 Angiomyolipoma Anxiety and depression ([facility]) 07/10/2023 Asthma ([facility]) 07/10/2023 Body mass index (BMI) 50.0-59.9, adult ([facility]) Cellulitis of left lower extremity Cervical cancer ([facility]) 09/17/2023 Chronic pain of both knees 09/17/2023 COPD (chronic obstructive pulmonary disease) ([facility]) 07/10/2023 COPD exacerbation ([facility]) 09/17/2023 Decreased functional mobility 09/17/2023 Diabetic neuropathy ([facility]) 07/10/2023 Dietary counseling and surveillance Edema 07/10/2023 Elevated sed rate Elevated WBC count GERD (gastroesophageal reflux disease) 09/17/2023 Hyperlipidemia ([facility]) 09/17/2023 Hypertension ([facility]) 07/10/2023 Insomnia 09/17/2023 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 ([facility]) Lower extremity edema 09/17/2023 Morbid (severe) obesity due to excess calories ([facility]) Obstructive sleep apnea 07/10/2023 PAD (peripheral artery disease) ([facility]) 09/17/2023 Pancreatitis 09/17/2023 Pneumonia 09/17/2023 Proteinuria, unspecified Pulmonary hypertension ([facility]) 09/17/2023 Radiculopathy, lumbar region 09/17/2023 Tobacco user 09/17/2023 Type 2 diabetes mellitus with complication, with long-term current use of insulin ([facility]) 07/10/2023 Unilateral primary [...] hyperglycemia, with long-term current use of insulin ([facility]) - POCT glucose manually resulted - POCT glycosylated hemoglobin (Hb A1C) docked device We will continue with Lantus 58, lispro 02/16/12 according to meal size, Mounjaro 15 mg once weekly, Farxiga 5 mg once a day Encounter for dietary consultation Vitamin D deficiency Primary hypertension ([facility]) To follow with her PCP Insulin long-term use ([facility]) Hyperlipemia, mixed ([facility]) Continue with Zocor 10 mg once daily Microalbuminuria Class 3 severe obesity due to excess calories with serious comorbidity and body mass index (BMI) of 50.0 to 59.9 in adult ([facility]) Diet and exercise reviewed with the patient Follow up in about 3 months (around 08/27/2024). documented in this encounter [facility] 04-14-2024 History of Present illness Narrative Associated Problem(s): Hyperpigmentation of skin Will try cerevue ointment to see if helps Associated Problem(s): Tobacco user Urged to quit Associated Problem(s): Type 2 diabetes mellitus with complication, with long-term current use of insulin (CMS/[facility]) Check blood sugars daily, follow w [...] Associated Problem(s): COPD (chronic obstructive pulmonary disease) (CMS/[facility]) Stable at this time, no changes in meds Encouraged smoking cessation Cont with dr Yañez Associated Problem(s): Diabetic neuropathy ([facility]/HCC) Continue with tristan EAST reviewed [...] being taken. She does not see a hearing consultant.Eye exam is not current. Hypertension This is [...] or chew. ergocalciferol (Vitamin D2) 1.25 MG (40364 UT) capsule TAKE 1 CAPSULE BY MOUTH ONE TIME PER WEEK furosemide (LASIX) 20 mg, Oral, Daily PRN, Take in the afternoon as needed furosemide (LASIX) 40 mg, Oral, Daily Glucose Blood (ACCU-CHEK JAQUI PLUS ) 4 times daily HumaLOG KWIKPEN 100 UNIT/ML injection Subcutaneous hydrALAZINE (APRESOLINE) 25 mg, Oral, 2 times daily HYDROcodone-acetaminophen (Sanostee) 5-325 MG tablet 1 tablet, 3 times [...] CT Albuminuria 09/17/2023 Angiomyolipoma Anxiety and depression ([facility]) 07/10/2023 Asthma ([facility]) 07/10/2023 Cellulitis of left lower extremity Cervical cancer ([facility]) 09/17/2023 Chronic pain of both knees 09/17/2023 COPD (chronic obstructive pulmonary disease) ([facility]) 07/10/2023 COPD exacerbation ([facility]) 09/17/2023 Decreased functional mobility 09/17/2023 Diabetic neuropathy ([facility]) 07/10/2023 Edema 07/10/2023 Elevated sed rate Elevated WBC count GERD (gastroesophageal reflux disease) 09/17/2023 Hyperlipidemia ([facility]) 09/17/2023 Hypertension ([facility]) 07/10/2023 Insomnia 09/17/2023 Lower extremity edema 09/17/2023 Obstructive sleep apnea 07/10/2023 PAD (peripheral artery disease) ([facility]) 09/17/2023 Pancreatitis 09/17/2023 Pneumonia 09/17/2023 Pulmonary hypertension ([facility]) 09/17/2023 Radiculopathy, lumbar region 09/17/2023 Tobacco user 09/17/2023 Type 2 diabetes mellitus with complication, with long-term current use of insulin ([facility]) 07/10/2023 Unilateral primary [...] List Items Addressed This Visit Diabetic neuropathy ([facility]) Continue with lyrica OARRS reviewed Fu in 3 months Relevant Medications pregabalin (Lyrica) 300 MG capsule COPD (chronic obstructive pulmonary disease) ([facility]) - Primary Stable at this time, no changes in meds Encouraged smoking cessation Cont with dr Yañez Hypertension ([facility]) Stable on current meds Refill meds Relevant Medications hydrALAZINE (Apresoline) 25 MG tablet lisinopril 20 MG tablet Type 2 diabetes mellitus with complication, with long-term current use of insulin ([facility]) Check blood sugars daily, follow w [...] 500 MCG tablet documented in this encounter [facility] 11-14-2023 Note [place] [facility] - [facility] Subjective Mitzi Macias is a 53 y.o. year old female being seen as new patient to establish care. Ref from Mckayla Blas CNP for pulmonary hypertension. She had echo in Aug 2023 while inpatient at [facility] for pneumonia and COPD exacerbation. Denies chest pain, palpitations, and lightheadedness/syncope. Says she only gets SOB when she has URI. She will be seeing Dr. Yañze as new patient soon. Patient Active Problem [...] (BMI) of 50.0 to 59.9 in adult ([facility]) Non-seasonal allergic rhinitis Obstructive sleep apnea Other chronic pain PAD (peripheral artery disease) ([facility]) Pneumonia Encounter for screening mammogram for malignant neoplasm of breast Pulmonary hypertension ([facility]) Radiculopathy, lumbar region Current smoker Type 2 diabetes mellitus with complication, with long-term current use of insulin ([facility]) Unilateral primary osteoarthritis, right hip Vaginal [...] was admitted in early 2023 to the [facility] with hypoxemia and treated as COPD [...] wheelchair Skin: Gene (more content not included)... [facility] 11-15-2022 Hospital Discharge instructions Patient Education [...] include: ?8 oz (237 mL) of milk, pnogpkp-jqjrkfkghesn-yrqud milk, and calcium-fortifiedfruit juice. Calcium-fortified means that [...] potatoes, and American chard. ?Peanuts. ?Potato chips, [place] citizen fries, and baked potatoes with skin on. ?Nuts and nut products. ?Chocolate. If you regularly take a diuretic medicine, make sure to eat at least 1 or 2 servings of fruits or vegetables that are high in potassium each day. These include: ?Avocado. ?Banana. ?[place], prune, carrot, or tomato juice. ?Baked potato. [...] magnesium, fish oil, or vitamin B6. Take yqlh-hiu-bpxixcr and prescription medicines only as told by [...] Casseroles. Pizza. Lasagna. Frozen meals. Potato chips. [place] Citizen fries. The items listed above may not [...] provider. Document Revised: 03/06/2022 Document Reviewed: 03/06/2022 [employer] Patient Education 2022 [employer]. Follow Up Care 02/06/2022 11:44:09 With:SARAH VEGA PA-C, URL Address: [address] [place] [address] When: Unknown [facility] 08-24-2022 Note CONSULTATION CONSULTATION DATE: 08/24/2022 [...] We maintain her on pain medication with Sanostee 5/325 t.i.d., diclofenac 75 mg b.i.d. Her [...] her at this point. A refill for Sanostee 5/325 t.i.d. and diclofenac 75 mg b.i.d. will be sent to the pharmacy. Vitamin compliance and nutrition were discussed and enforced. I did highly encourage her to use exercise bands to increase the strength in her lower extremities. We will see her in three months' time, unless otherwise indicated, and patient agrees. [facility] 05-11-2022 Note CONSULTATION CONSULTATION DATE: 05/11/2022 [...] 150. Medications include Lyrica 300 mg b.i.d., Sanostee 5/325 t.i.d., diclofenac 75 mg b.i.d. and [...] her medications today. We will maintain Lyrica, Sanostee and diclofenac at the set dose and frequency. We will follow-up in the clinic in three months' time. The patient is in agreement to this. Vitamin importance and nutrition were discussed. [facility] 04-20-2022 Note CONSULTATION CONSULTATION DATE: 04/20/2022 [...] medications include Tylenol, Lyrica 300 mg b.i.d., Sanostee 5/325 t.i.d., amitriptyline, diclofenac and duloxetine. Patient's [...] be followed up in the clinic. [facility] 03-08-2022 Evaluation note Encounter Date Diagnosis [...] to the [facility]. Thrombocytopenia is unclear etiology. [facility] 08-15-2022 Evaluation note* Encounter Date Diagnosis [...] follow with Dr. Souza and Dr. Arauz. [facility] 08-01-2022 Hospital Discharge instructions Patient Education [...] fried and sweet foods. General instructions Take yqju-evb-pvlylyn and prescription medicines only as told by [...] 04/21/2010 Document Revised: 10/16/2019 Document Reviewed: 07/11/2018 [employer] Patient Education 2020 [employer]. Follow Up Care 01/05/2022 12:02:03 With:REGLA PHIPPS, Elbert Joya, URL Address: [facility] [address], [place] [address] [phone] When:Within 6 Month(s) Comments:w/ repeat CT A/P [facility] 07-14-2022 NoteCONSULTATION PROCEDURE DATE: 01/19/2022 PRE AND [...] and Approved by: GIL VALENZUELA . 01/27/2022 14:15:00[facility]07-14-2022 NoteCONSULTATION CONSULTATION DATE: 01/19/2022 This is [...] today. Medications include Lyrica 300 mg b.i.d., Sanostee 5/325 t.i.d., diclofenac 75 mg b.i.d. and [...] and Approved by: GIL VALENZUELA . 01/27/2022 [facility]ments Appointment Date:08/14/2022 09:15:00 AM Scheduled Provider:Elbert ARAUZ MD Location:[facility] Appointment Type:URO Office Visit [facility] evaluation + Plan note Future Appointments Appointment Date:04/22/2024 10:00:00 AM Scheduled Provider:SARAH VEGA PA-C Location:[facility] Appointment Type:URO Office Visit [facility] evaltstcge note* Diagnosis Type 2 diabetes mellitus with unspecified complications ([facility]) Edema, unspecified Edema documented in this encounter [facility] HealthcareEvaluation note* Diagnosis Vaginal yeast infection- Primary Candidiasis of vulva and vagina documented in this encounter [facility] HealthcareEvaluation note* Diagnosis Primary hypertension ([facility]/HCC)- Primary Unspecified essential hypertension Insomnia Insomnia, unspecified Type 2 diabetes mellitus with complication, with long-term current use of insulin ([facility]) Non-seasonal allergic rhinitis, unspecified trigger Type 2 diabetes mellitus with unspecified complications ([facility]/HCC) Anxiety and depression ([facility]) Gastro-esophageal reflux disease without esophagitis Edema, unspecified Edema Diabetic polyneuropathy associated with type 2 diabetes mellitus ([facility]) Chronic obstructive pulmonary disease, unspecified (CMS/[facility]) Pulmonary emphysema, unspecified emphysema type ([facility]) Bilateral lower extremity edema Tobacco user Tobacco use disorder Hyperpigmentation of skin Other dyschromia documented in this encounter [facility] HealthcareEvaluation note* Diagnosis Obstructive sleep apnea- Primary Obstructive sleep apnea (adult) (pediatric) Pulmonary emphysema, unspecified emphysema type ([facility]/HCC) Primary hypertension ([facility]) Unspecified essential hypertension Type 2 diabetes mellitus with complication, with long-term current use of insulin ([facility]) Anxiety and depression ([facility]) Bilateral lower extremity edema Pulmonary emphysema, unspecified emphysema type ([facility]/HCC)- Primary Primary hypertension ([facility]) Unspecified essential hypertension Class 3 severe obesity with serious comorbidity and body mass index (BMI) of 50.0 to 59.9 in adult, unspecified obesity type ([facility]) Obstructive sleep apnea Obstructive sleep apnea (adult) (pediatric) Pulmonary hypertension ([facility]) Other chronic pulmonary heart diseases Tobacco user Tobacco use disorder Cardiomegaly Primary hypertension ([facility])- Primary Unspecified essential hypertension Gastroesophageal reflux disease, unspecified whether esophagitis present Type 2 diabetes mellitus with complication, with long-term current use of insulin ([facility]) Mixed hyperlipidemia ([facility]) Mixed hyperlipidemia Tobacco user Tobacco use disorder Encounter for screening mammogram for malignant neoplasm of breast Chronic obstructive pulmonary disease, unspecified ([facility]) Other specified chronic obstructive pulmonary disease ([facility]) Anxiety and depression ([facility]) Edema, unspecified Edema Hyperlipidemia, unspecified ([facility]) Diabetic polyneuropathy associated with type 2 diabetes mellitus ([facility]) Gout, unspecified cause, unspecified chronicity, unspecified site Non-seasonal allergic rhinitis, unspecified trigger Bilateral lower extremity edema COPD exacerbation ([facility]) Obstructive chronic bronchitis with exacerbation Pulmonary emphysema, unspecified emphysema type ([facility]) Venous insufficiency Unspecified venous (peripheral) insufficiency Candidiasis of breast COPD exacerbation ([facility])- Primary Obstructive chronic bronchitis with exacerbation Pulmonary hypertension ([facility]) Other chronic pulmonary heart diseases Class 3 severe obesity with serious comorbidity and body mass index (BMI) of 50.0 to 59.9 in adult, unspecified obesity type ([facility]) Encounter for subsequent annual wellness visit (AWV) in Medicare patient- Primary Type 2 diabetes mellitus with unspecified complications ([facility]) Pulmonary emphysema, unspecified emphysema type ([facility]) Moderate persistent asthma without complication (CMS/[facility]) Primary hypertension ([facility]) Unspecified essential hypertension Type 2 diabetes mellitus with complication, with long-term current use of insulin ([facility]) Class 3 severe obesity with serious comorbidity and body mass index (BMI) of 50.0 to 59.9 in adult, unspecified obesity type ([facility]) Tobacco user Tobacco use disorder Other headache syndrome Malignant neoplasm of cervix uteri, unspecified ([facility]) Other specified disorders of adrenal gland ([facility]) Major depressive disorder, single episode, mild (HCC) ([facility]) Major depressive disorder, single episode, mild 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 exposed ([facility]) Chronic respiratory failure, unspecified whether with hypoxia or hypercapnia ([facility]) Disorder of adrenal gland, unspecified (CMS/[facility]) Non-pressure chronic ulcer of other part of right lower leg limited to breakdown of skin ([facility]) Non-recurrent acute suppurative otitis media of left ear without spontaneous rupture of tympanic membrane Primary hypertension ([facility])- Primary Unspecified essential hypertension Insomnia Insomnia, unspecified Type 2 diabetes mellitus with complication, with long-term current use of insulin ([facility]) Non-seasonal allergic rhinitis, unspecified trigger Type 2 diabetes mellitus with unspecified complications ([facility]) Anxiety and depression ([facility]) Gastro-esophageal reflux disease without esophagitis Edema, unspecified Edema Diabetic polyneuropathy associated with type 2 diabetes mellitus ([facility]) Chronic obstructive pulmonary disease, unspecified ([facility]) Pulmonary emphysema, unspecified emphysema type ([facility]) Bilateral lower extremity edema Tobacco user Tobacco use disorder Hyperpigmentation of skin Other dyschromia Type 2 diabetes mellitus with hyperglycemia, with long-term current use of insulin ([facility])- Primary Encounter for dietary consultation Vitamin D deficiency Primary hypertension ([facility]) Unspecified essential hypertension Insulin long-term use ([facility]) Encounter for long-term (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 Hyperlipemia, mixed ([facility]) Mixed hyperlipidemia Microalbuminuria Proteinuria Class 3 severe obesity due to excess calories with serious comorbidity and body mass index (BMI) of 50.0 to 59.9 in adult ([facility]) documented in this encounter [facility] HealthcareEvaluation note* Diagnosis Hyperlipidemia, unspecified ([facility]) Bilateral lower extremity edema documented in this encounter [facility] HealthcareEvaluation note* Diagnosis Vitamin D deficiency, unspecified documented in this encounter [facility] HealthcareEvaluation note* Diagnosis Obstructive sleep apnea- Primary Obstructive sleep apnea (adult) (pediatric) Pulmonary emphysema, unspecified emphysema type ([facility]) Primary hypertension ([facility]) Unspecified essential hypertension Type 2 diabetes mellitus with complication, with long-term current use of insulin ([facility]) Anxiety and depression ([facility]) Bilateral lower extremity edema Pulmonary emphysema, unspecified emphysema type ([facility])- Primary Primary hypertension ([facility]) Unspecified essential hypertension Class 3 severe obesity with serious comorbidity and body mass index (BMI) of 50.0 to 59.9 in adult, unspecified obesity type ([facility]) Obstructive sleep apnea Obstructive sleep apnea (adult) (pediatric) Pulmonary hypertension ([facility]) Other chronic pulmonary heart diseases Tobacco user Tobacco use disorder Cardiomegaly Primary hypertension ([facility])- Primary Unspecified essential hypertension Gastroesophageal reflux disease, unspecified whether esophagitis present Type 2 diabetes mellitus with complication, with long-term current use of insulin ([facility]) Mixed hyperlipidemia ([facility]) Mixed hyperlipidemia Tobacco user Tobacco use disorder Encounter for screening mammogram for malignant neoplasm of breast Chronic obstructive pulmonary disease, unspecified ([facility]) Other specified chronic obstructive pulmonary disease ([facility]) Anxiety and depression ([facility]) Edema, unspecified Edema Hyperlipidemia, unspecified ([facility]) Diabetic polyneuropathy associated with type 2 diabetes mellitus ([facility]) Gout, unspecified cause, unspecified chronicity, unspecified site Non-seasonal allergic rhinitis, unspecified trigger Bilateral lower extremity edema COPD exacerbation ([facility]) Obstructive chronic bronchitis with exacerbation Pulmonary emphysema, unspecified emphysema type ([facility]) Venous insufficiency Unspecified venous (peripheral) insufficiency Candidiasis of breast COPD exacerbation ([facility])- Primary Obstructive chronic bronchitis with exacerbation Pulmonary hypertension ([facility]) Other chronic pulmonary heart diseases Class 3 severe obesity with serious comorbidity and body mass index (BMI) of 50.0 to 59.9 in adult, unspecified obesity type ([facility]) Encounter for subsequent annual wellness visit (AWV) in Medicare patient- Primary Type 2 diabetes mellitus with unspecified complications ([facility]) Pulmonary emphysema, unspecified emphysema type ([facility]) Moderate persistent asthma without complication ([facility]) Primary hypertension ([facility]/HCC) Unspecified essential hypertension Type 2 diabetes mellitus with complication, with long-term current use of insulin (CMS/[facility]) Class 3 severe obesity with serious comorbidity and body mass index (BMI) of 50.0 to 59.9 in adult, unspecified obesity type (CMS/HCC) Tobacco user Tobacco use disorder Other headache syndrome Malignant neoplasm of cervix uteri, unspecified (CMS/HCC) Other specified disorders of adrenal gland (CMS/[facility]) Major depressive disorder, single episode, mild (HCC) ([facility]) Major depressive disorder, single episode, mild 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 exposed (CMS/[facility]) Chronic respiratory failure, unspecified whether with hypoxia or hypercapnia ([facility]) Disorder of adrenal gland, unspecified ([facility]) Non-pressure chronic ulcer of other part of right lower leg limited to breakdown of skin (CMS/[facility]) Non-recurrent acute suppurative otitis media of left ear without spontaneous rupture of tympanic membrane Primary hypertension ([facility])- Primary Unspecified essential hypertension Insomnia Insomnia, unspecified Type 2 diabetes mellitus with complication, with long-term current use of insulin ([facility]) Non-seasonal allergic rhinitis, unspecified trigger Type 2 diabetes mellitus with unspecified complications ([facility]) Anxiety and depression ([facility]) Gastro-esophageal reflux disease without esophagitis Edema, unspecified Edema Diabetic polyneuropathy associated with type 2 diabetes mellitus ([facility]) Chronic obstructive pulmonary disease, unspecified (CMS/[facility]) Pulmonary emphysema, unspecified emphysema type ([facility]) Bilateral lower extremity edema Tobacco user Tobacco use disorder Hyperpigmentation of skin Other dyschromia Bilateral lower extremity edema documented in this encounter [facility] HealthcareEvaluation note* Diagnosis Obstructive sleep apnea- Primary Obstructive sleep apnea (adult) (pediatric) Pulmonary emphysema, unspecified emphysema type (CMS/HCC) Primary hypertension ([facility]) Unspecified essential hypertension Type 2 diabetes mellitus with complication, with long-term current use of insulin ([facility]) Anxiety and depression (CMS/[facility]) Bilateral lower extremity edema Pulmonary emphysema, [...] to 59.9 in adult, unspecified obesity type ([facility]/HCC) Encounter for subsequent annual wellness visit (AWV) in Medicare patient- Primary Type 2 diabetes mellitus with unspecified complications (CMS/HCC) Pulmonary emphysema, unspecified emphysema type (CMS/HCC) Moderate persistent asthma without complication (CMS/HCC) Primary hypertension (CMS/HCC) Unspecified essential hypertension Type 2 diabetes mellitus with complication, with long-term current use of insulin (CMS/[facility]) Class 3 severe obesity with serious [...] lower leg limited to breakdown of skin (CMS/[facility]) Non-recurrent acute suppurative otitis media of left ear without spontaneous rupture of tympanic membrane Primary hypertension ([facility])- Primary Unspecified essential hypertension Insomnia Insomnia, unspecified Type 2 diabetes mellitus with complication, with long-term current use of insulin (CMS/[facility]) Non-seasonal allergic rhinitis, unspecified trigger Type 2 diabetes mellitus with unspecified complications (CMS/[facility]) Anxiety and depression ([facility]) Gastro-esophageal reflux disease without esophagitis Edema, unspecified Edema Diabetic polyneuropathy associated with type 2 diabetes mellitus (CMS/[facility]) Chronic obstructive pulmonary disease, unspecified (CMS/[facility]) Pulmonary emphysema, unspecified emphysema type (CMS/[facility]) Bilateral lower extremity edema Tobacco user Tobacco use disorder Hyperpigmentation of skin Other dyschromia Primary hypertension ([facility])- Primary Unspecified essential hypertension Diabetic polyneuropathy associated with type 2 diabetes mellitus ([facility]) Pulmonary emphysema, unspecified emphysema type ([facility]) Critical limb ischemia of right lower extremity ([facility]) PAD (peripheral artery disease) ([facility]) Unspecified peripheral vascular disease Gastroesophageal reflux disease, unspecified whether esophagitis present Bilateral lower extremity edema Venous ulcer of right leg ([facility]) Type 2 diabetes mellitus with complication, with long-term current use of insulin ([facility]) Tobacco user Tobacco use disorder Encounter for smoking cessation counseling Kidney stone Calculus of kidney Adrenal mass 1 cm to 4 cm in diameter ([facility]) Radiculopathy, lumbar region Thoracic or lumbosacral neuritis or radiculitis, unspecified Non-seasonal allergic rhinitis, unspecified trigger Type 2 diabetes mellitus with unspecified complications ([facility]) documented in this encounter [facility] HealthcareEvaluation note* Diagnosis Obstructive sleep apnea- Primary Obstructive sleep apnea (adult) (pediatric) Pulmonary emphysema, unspecified emphysema type (CMS/HCC) Primary hypertension ([facility]) Unspecified essential hypertension Type 2 diabetes mellitus with complication, with long-term current use of insulin ([facility]) Anxiety and depression (CMS/[facility]) Bilateral lower extremity edema Pulmonary emphysema, unspecified emphysema type (CMS/HCC)- Primary Primary hypertension ([facility]) Unspecified essential hypertension Class 3 severe [...] polyneuropathy associated with type 2 diabetes mellitus (CMS/[facility]) Gout, unspecified cause, unspecified chronicity, unspecified site Non-seasonal allergic rhinitis, unspecified trigger Bilateral lower extremity edema COPD exacerbation (CMS/[facility]) Obstructive chronic bronchitis with exacerbation Pulmonary emphysema, unspecified emphysema type (CMS/[facility]) Venous insufficiency Unspecified venous (peripheral) insufficiency Candidiasis of breast COPD exacerbation (CMS/[facility])- Primary Obstructive chronic bronchitis with exacerbation Pulmonary hypertension (CMS/HCC) Other chronic pulmonary heart diseases Class 3 severe obesity with serious comorbidity and body mass index (BMI) of 50.0 to 59.9 in adult, unspecified obesity type ([facility]) Encounter for subsequent annual wellness visit (AWV) in Medicare patient- Primary Type 2 diabetes mellitus with unspecified complications (CMS/[facility]) Pulmonary emphysema, unspecified emphysema type (CMS/[facility]) Moderate persistent asthma without complication (CMS/[facility]) Primary hypertension (CMS/[facility]) Unspecified essential hypertension Type 2 diabetes mellitus with complication, with long-term current use of insulin ([facility]) Class 3 severe obesity with serious comorbidity and body mass index (BMI) of 50.0 to 59.9 in adult, unspecified obesity type (CMS/HCC) Tobacco user Tobacco use disorder Other headache syndrome Malignant neoplasm of cervix uteri, unspecified (CMS/HCC) Other specified disorders of adrenal gland (CMS/HCC) Major depressive disorder, single episode, mild (HCC) (CMS/[facility]) Major depressive disorder, single episode, mild 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 exposed (CMS/[facility]) Chronic respiratory failure, unspecified whether with hypoxia or hypercapnia (CMS/HCC) Disorder of adrenal gland, unspecified ([facility]) Non-pressure chronic ulcer of other part of right lower leg limited to breakdown of skin ([facility]) Non-recurrent acute suppurative otitis media of left ear without spontaneous rupture of tympanic membrane Primary hypertension ([facility])- Primary Unspecified essential hypertension Insomnia Insomnia, unspecified Type 2 diabetes mellitus with complication, with long-term current use of insulin ([facility]) Non-seasonal allergic rhinitis, unspecified trigger Type 2 diabetes mellitus with unspecified complications ([facility]) Anxiety and depression ([facility]) Gastro-esophageal reflux disease without esophagitis Edema, unspecified Edema Diabetic polyneuropathy associated with type 2 diabetes mellitus ([facility]) Chronic obstructive pulmonary disease, unspecified (CMS/[facility]) Pulmonary emphysema, unspecified emphysema type (CMS/[facility]) Bilateral lower extremity edema Tobacco user Tobacco use disorder Hyperpigmentation of skin Other dyschromia Primary hypertension ([facility])- Primary Unspecified essential hypertension Diabetic polyneuropathy associated with type 2 diabetes mellitus ([facility]) Pulmonary emphysema, unspecified emphysema type ([facility]) Critical limb ischemia of right lower extremity ([facility]) PAD (peripheral artery disease) ([facility]) Unspecified peripheral vascular disease Gastroesophageal reflux disease, unspecified whether esophagitis present Bilateral lower extremity edema Venous ulcer of right leg ([facility]) Type 2 diabetes mellitus with complication, with long-term current use of insulin ([facility]) Tobacco user Tobacco use disorder Encounter for smoking cessation counseling Kidney stone Calculus of kidney Adrenal mass 1 cm to 4 cm in diameter ([facility]) Radiculopathy, lumbar region Thoracic or lumbosacral neuritis or radiculitis, unspecified Non-seasonal allergic rhinitis, unspecified trigger Type 2 diabetes mellitus with unspecified complications ([facility]) Anxiety and depression ([facility])- Primary Morbid (severe) obesity due to excess calories ([facility]) Body mass index (BMI) 50.0-59.9, adult ([facility]) Malignant neoplasm of cervix uteri, unspecified (CMS/[facility]) Diabetic polyneuropathy associated with type 2 diabetes mellitus ([facility]) Chronic diastolic heart failure (CMS/[facility]) Chronic diastolic heart failure Primary hypertension ([facility]) Unspecified essential hypertension 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 (CMS/[facility]) Gastroesophageal reflux disease, unspecified whether esophagitis present Bilateral lower extremity edema Type 2 diabetes mellitus with complication, with long-term current use of insulin ([facility]) Tobacco user Tobacco use disorder Mixed hyperlipidemia ([facility]) Mixed hyperlipidemia Gout, unspecified cause, unspecified chronicity, unspecified site Vitamin deficiency Unspecified vitamin deficiency Gastro-esophageal reflux disease without esophagitis Edema, unspecified Edema Hyperlipidemia, unspecified ([facility] [facility]) Encounter for smoking cessation counseling Venous ulcer of right leg ([facility] [place]) Antibiotic-induced yeast infection documented in this encounter [facility] HealthcareEvaluation note* Diagnosis Obstructive sleep apnea- Primary Obstructive sleep apnea (adult) (pediatric) Pulmonary emphysema, unspecified emphysema type ([facility]) Primary hypertension ([facility]) Unspecified essential hypertension Type 2 diabetes mellitus with complication, with long-term current use of insulin ([facility] [place]) Anxiety and depression ([facility]) Bilateral lower extremity edema Pulmonary emphysema, unspecified emphysema type ([facility])- Primary Primary hypertension ([facility] [place]) Unspecified essential hypertension Class 3 severe obesity with serious comorbidity and body mass index (BMI) of 50.0 to 59.9 in adult, unspecified obesity type Obstructive sleep apnea Obstructive sleep apnea (adult) (pediatric) Pulmonary hypertension ([facility]) Other chronic pulmonary heart diseases Tobacco user Tobacco use disorder Cardiomegaly Primary hypertension ([facility])- Primary Unspecified essential hypertension Gastroesophageal reflux disease, unspecified whether esophagitis present Type 2 diabetes mellitus with complication, with long-term current use of insulin ([facility] [place]) Mixed hyperlipidemia ([facility]) Mixed hyperlipidemia Tobacco user Tobacco use disorder Encounter for screening mammogram for malignant neoplasm of breast Chronic obstructive pulmonary disease, unspecified Other specified chronic obstructive pulmonary disease Anxiety and depression ([facility]) Edema, unspecified Edema Hyperlipidemia, unspecified ([facility] [place]) Diabetic polyneuropathy associated with type 2 diabetes mellitus ([facility]) Gout, unspecified cause, unspecified chronicity, unspecified site Non-seasonal allergic rhinitis, unspecified trigger Bilateral lower extremity edema COPD exacerbation ([facility]) Obstructive chronic bronchitis with exacerbation Pulmonary emphysema, unspecified emphysema type ([facility]) Venous insufficiency Unspecified venous (peripheral) insufficiency Candidiasis of breast COPD exacerbation ([facility] [place])- Primary Obstructive chronic bronchitis with exacerbation Pulmonary hypertension ([facility] [place]) Other chronic pulmonary heart diseases Class 3 severe obesity with serious comorbidity and body mass index (BMI) of 50.0 to 59.9 in adult, unspecified obesity type Encounter for subsequent annual wellness visit (AWV) in Medicare patient- Primary Type 2 diabetes mellitus with unspecified complications Pulmonary emphysema, unspecified emphysema type ([facility]) Moderate persistent asthma without complication (CMS/[facility]) Primary hypertension (CMS/[facility]) Unspecified essential hypertension Type 2 diabetes mellitus with complication, with long-term current use of insulin ([facility]) Class 3 severe obesity with serious comorbidity and body mass index (BMI) of 50.0 to 59.9 in adult, unspecified obesity type Tobacco user Tobacco use disorder Other headache syndrome Malignant neoplasm of cervix uteri, unspecified Other specified disorders of adrenal gland Major depressive disorder, single episode, mild (HCC) ([facility]) Major depressive disorder, single episode, mild 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 exposed Chronic respiratory failure, unspecified whether with hypoxia or hypercapnia Disorder of adrenal gland, unspecified Non-pressure chronic ulcer of other part of right lower leg limited to breakdown of skin ([facility]) Non-recurrent acute suppurative otitis media of left ear without spontaneous rupture of tympanic membrane Primary hypertension ([facility])- Primary Unspecified essential hypertension Insomnia Insomnia, unspecified Type 2 diabetes mellitus with complication, with long-term current use of insulin (CMS/[facility]) Non-seasonal allergic rhinitis, unspecified trigger Type 2 diabetes mellitus with unspecified complications Anxiety and depression ([facility]) Gastro-esophageal reflux disease without esophagitis Edema, unspecified Edema Diabetic polyneuropathy associated with type 2 diabetes mellitus ([facility]) Chronic obstructive pulmonary disease, unspecified Pulmonary emphysema, unspecified emphysema type (CMS/HCC) Bilateral lower extremity edema Tobacco user Tobacco use disorder Hyperpigmentation of skin Other dyschromia Primary hypertension (CMS/HCC)- Primary Unspecified essential hypertension Diabetic polyneuropathy associated with type 2 diabetes mellitus (CMS/[facility]) Pulmonary emphysema, unspecified emphysema type (CMS/HCC) Critical limb ischemia of right lower extremity ([facility]) PAD (peripheral artery disease) ([facility]) Unspecified peripheral vascular disease Gastroesophageal reflux disease, unspecified whether esophagitis present Bilateral lower extremity edema Venous ulcer of right leg ([facility]) Type 2 diabetes mellitus with complication, with long-term current use of insulin ([facility]) Tobacco user Tobacco use disorder Encounter for smoking cessation counseling Kidney stone Calculus of kidney Adrenal mass 1 cm to 4 cm in diameter ([facility]) Radiculopathy, lumbar region Thoracic or lumbosacral neuritis or radiculitis, unspecified Non-seasonal allergic rhinitis, unspecified trigger Type 2 diabetes mellitus with unspecified complications Anxiety and depression ([facility] [place])- Primary Morbid (severe) obesity due to excess calories ([facility] [place]) Body mass index (BMI) 50.0-59.9, adult ([facility]) Malignant neoplasm of cervix uteri, unspecified Diabetic polyneuropathy associated with type 2 diabetes mellitus ([facility] [place]) Chronic diastolic heart failure ([facility] [place]) Chronic diastolic heart failure Primary hypertension ([facility] [place]) Unspecified essential hypertension 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 Gastroesophageal reflux disease, unspecified whether esophagitis present Bilateral lower extremity edema Type 2 diabetes mellitus with complication, with long-term current use of insulin ([facility] [place]) Tobacco user Tobacco use disorder Mixed hyperlipidemia ([facility] [place]) Mixed hyperlipidemia Gout, unspecified cause, unspecified chronicity, unspecified site Vitamin deficiency Unspecified vitamin deficiency Gastro-esophageal reflux disease without esophagitis Edema, unspecified Edema Hyperlipidemia, unspecified ([facility] [place]) Encounter for smoking cessation counseling Venous ulcer of right leg ([facility] [place]) Antibiotic-induced yeast infection Type 2 diabetes mellitus with hyperglycemia, with long-term current use of insulin ([facility] [place])- Primary Encounter for dietary consultation Vitamin D deficiency Primary hypertension ([facility] [place]) Unspecified essential hypertension Insulin long-term use ([facility] [place]) Encounter for long-term (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 Hyperlipemia, mixed ([facility] [place]) Mixed hyperlipidemia Microalbuminuria Proteinuria Class 3 severe obesity due to excess calories with serious comorbidity and body mass index (BMI) of 50.0 to 59.9 in adult documented in this encounter [facility] HealthcareEvaluation note* Diagnosis Obstructive sleep apnea- Primary Obstructive sleep apnea (adult) (pediatric) Pulmonary emphysema, unspecified emphysema type ([facility]) Primary hypertension ([facility] [place]) Unspecified essential hypertension Type 2 diabetes mellitus with complication, with long-term current use of insulin ([facility] [place]) Anxiety and depression ([facility] [place]) Bilateral lower extremity edema Pulmonary emphysema, unspecified emphysema type ([facility])- Primary Primary hypertension ([facility] [place]) Unspecified essential hypertension Class 3 severe obesity [...] chronic obstructive pulmonary disease Anxiety and depression (CMS/[facility]) Edema, unspecified Edema Hyperlipidemia, unspecified (CMS/HCC) Diabetic polyneuropathy associated with type 2 diabetes mellitus (CMS/[facility]) Gout, unspecified cause, unspecified chronicity, unspecified site Non-seasonal allergic rhinitis, unspecified trigger Bilateral lower extremity edema COPD exacerbation ([facility]) Obstructive chronic bronchitis with exacerbation Pulmonary emphysema, unspecified emphysema type (CMS/[facility]) Venous insufficiency Unspecified venous (peripheral) insufficiency Candidiasis of breast COPD exacerbation (CMS/[facility])- Primary Obstructive chronic bronchitis with exacerbation Pulmonary hypertension (CMS/[facility]) Other chronic pulmonary heart diseases Class 3 severe obesity with serious comorbidity and body mass index (BMI) of 50.0 to 59.9 in adult, unspecified obesity type Encounter for subsequent annual wellness visit (AWV) in Medicare patient- Primary Type 2 diabetes mellitus with unspecified complications Pulmonary emphysema, unspecified emphysema type (CMS/[facility]) Moderate persistent asthma without complication (CMS/[facility]) Primary hypertension ([facility]) Unspecified essential hypertension Type 2 diabetes mellitus with complication, with long-term current use of insulin ([facility]) Class 3 severe obesity with serious comorbidity and body mass index (BMI) of 50.0 to 59.9 in adult, unspecified obesity type Tobacco user Tobacco use disorder Other headache syndrome Malignant neoplasm of cervix uteri, unspecified Other specified disorders of adrenal gland Major depressive disorder, single episode, mild (HCC) (CMS/[facility]) Major depressive disorder, single episode, mild 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 exposed Chronic respiratory failure, unspecified whether with hypoxia or hypercapnia Disorder of adrenal gland, unspecified Non-pressure chronic ulcer of other part of right lower leg limited to breakdown of skin (CMS/[facility]) Non-recurrent acute suppurative otitis media of left ear without spontaneous rupture of tympanic membrane Primary hypertension (CMS/[facility])- Primary Unspecified essential hypertension Insomnia Insomnia, unspecified Type 2 diabetes mellitus with complication, with long-term current use of insulin ([facility]) Non-seasonal allergic rhinitis, unspecified trigger Type 2 diabetes mellitus with unspecified complications Anxiety and depression ([facility]) Gastro-esophageal reflux disease without esophagitis Edema, unspecified Edema Diabetic polyneuropathy associated with type 2 diabetes mellitus ([facility]) Chronic obstructive pulmonary disease, unspecified Pulmonary emphysema, unspecified emphysema type ([facility]) Bilateral lower extremity edema Tobacco user Tobacco use disorder Hyperpigmentation of skin Other dyschromia Primary hypertension ([facility])- Primary Unspecified essential hypertension Diabetic polyneuropathy associated with type 2 diabetes mellitus ([facility]) Pulmonary emphysema, unspecified emphysema type ([facility]) Critical limb ischemia of right lower extremity ([facility]) PAD (peripheral artery disease) ([facility]) Unspecified peripheral vascular disease Gastroesophageal reflux disease, unspecified whether esophagitis present Bilateral lower extremity edema Venous ulcer of right leg ([facility]) Type 2 diabetes mellitus with complication, with long-term current use of insulin ([facility]) Tobacco user Tobacco use disorder Encounter for smoking cessation counseling Kidney stone Calculus of kidney Adrenal mass 1 cm to 4 cm in diameter ([facility]) Radiculopathy, lumbar region Thoracic or lumbosacral neuritis or radiculitis, unspecified Non-seasonal allergic rhinitis, unspecified trigger Type 2 diabetes mellitus with unspecified complications Anxiety and depression ([facility])- Primary Morbid (severe) obesity due to excess calories ([facility] [facility]) Body mass index (BMI) 50.0-59.9, adult ([facility]) Malignant neoplasm of cervix uteri, unspecified Diabetic polyneuropathy associated with type 2 diabetes mellitus ([facility]) Chronic diastolic heart failure ([facility]) Chronic diastolic heart failure Primary hypertension ([facility]) Unspecified essential hypertension 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 Gastroesophageal reflux disease, unspecified whether esophagitis present Bilateral lower extremity edema Type 2 diabetes mellitus with complication, with long-term current use of insulin ([facility]) Tobacco user Tobacco use disorder Mixed hyperlipidemia ([facility]) Mixed hyperlipidemia Gout, unspecified cause, unspecified chronicity, unspecified site Vitamin deficiency Unspecified vitamin deficiency Gastro-esophageal reflux disease without esophagitis Edema, unspecified Edema Hyperlipidemia, unspecified ([facility]) Encounter for smoking cessation counseling Venous ulcer of right leg ([facility]) Antibiotic-induced yeast infection Chronic obstructive pulmonary disease, unspecified documented in this encounter [facility] HealthcareEvaluation note* Diagnosis Obstructive sleep apnea- Primary Obstructive sleep apnea (adult) (pediatric) Pulmonary emphysema, unspecified emphysema type ([facility]) Primary hypertension ([facility]) Unspecified essential hypertension Type 2 diabetes mellitus with complication, with long-term current use of insulin ([facility]) Anxiety and depression ([facility]) Bilateral lower extremity edema Pulmonary emphysema, unspecified emphysema type ([facility])- Primary Primary hypertension ([facility]) Unspecified essential hypertension Class 3 severe obesity with serious comorbidity and body mass index (BMI) of 50.0 to 59.9 in adult, unspecified obesity type Obstructive sleep apnea Obstructive sleep apnea (adult) (pediatric) Pulmonary hypertension ([facility]) Other chronic pulmonary heart diseases Tobacco user Tobacco use disorder Cardiomegaly Primary hypertension ([facility])- Primary Unspecified essential hypertension Gastroesophageal reflux disease, unspecified whether esophagitis present Type 2 diabetes mellitus with complication, with long-term current use of insulin ([facility]) Mixed hyperlipidemia ([facility]) Mixed hyperlipidemia Tobacco user Tobacco use disorder Encounter for screening mammogram for malignant neoplasm of breast Chronic obstructive pulmonary disease, unspecified Other specified chronic obstructive pulmonary disease Anxiety and depression ([facility]) Edema, unspecified Edema Hyperlipidemia, unspecified ([facility]) Diabetic polyneuropathy associated with type 2 diabetes mellitus ([facility]) Gout, unspecified cause, unspecified chronicity, unspecified site Non-seasonal allergic rhinitis, unspecified trigger Bilateral lower extremity edema COPD exacerbation ([facility]) Obstructive chronic bronchitis with exacerbation Pulmonary emphysema, unspecified emphysema type ([facility]) Venous insufficiency Unspecified venous (peripheral) insufficiency Candidiasis of breast COPD exacerbation ([facility])- Primary Obstructive chronic bronchitis with exacerbation Pulmonary hypertension ([facility]) Other chronic pulmonary heart diseases Class 3 severe obesity with serious comorbidity and body mass index (BMI) of 50.0 to 59.9 in adult, unspecified obesity type Encounter for subsequent annual wellness visit (AWV) in Medicare patient- Primary Type 2 diabetes mellitus with unspecified complications Pulmonary emphysema, unspecified emphysema type ([facility]) Moderate persistent asthma without complication ([facility]) Primary hypertension ([facility]) Unspecified essential hypertension Type 2 diabetes mellitus with complication, with long-term current use of insulin ([facility]) Class 3 severe obesity with serious comorbidity and body mass index (BMI) of 50.0 to 59.9 in adult, unspecified obesity type Tobacco user Tobacco use disorder Other headache syndrome Malignant neoplasm of cervix uteri, unspecified Other specified disorders of adrenal gland Major depressive disorder, single episode, mild (HCC) ([facility]) Major depressive disorder, single episode, mild 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 exposed Chronic respiratory failure, unspecified whether with hypoxia or hypercapnia Disorder of adrenal gland, unspecified Non-pressure chronic ulcer of other part of right lower leg limited to breakdown of skin ([facility]) Non-recurrent acute suppurative otitis media of left ear without spontaneous rupture of tympanic membrane Primary hypertension ([facility])- Primary Unspecified essential hypertension Insomnia Insomnia, unspecified Type 2 diabetes mellitus with complication, with long-term current use of insulin ([facility]) Non-seasonal allergic rhinitis, unspecified trigger Type 2 diabetes mellitus with unspecified complications Anxiety and depression ([facility]) Gastro-esophageal reflux disease without esophagitis Edema, unspecified Edema Diabetic polyneuropathy associated with type 2 diabetes mellitus ([facility]) Chronic obstructive pulmonary disease, unspecified Pulmonary emphysema, unspecified emphysema type ([facility]) Bilateral lower extremity edema Tobacco user Tobacco use disorder Hyperpigmentation of skin Other dyschromia Primary hypertension ([facility])- Primary Unspecified essential hypertension Diabetic polyneuropathy associated with type 2 diabetes mellitus ([facility]) Pulmonary emphysema, unspecified emphysema type ([facility]) Critical limb ischemia of right lower extremity ([facility]) PAD (peripheral artery disease) ([facility]) Unspecified peripheral vascular disease Gastroesophageal reflux disease, unspecified whether esophagitis present Bilateral lower extremity edema Venous ulcer of right leg ([facility]) Type 2 diabetes mellitus with complication, with long-term current use of insulin ([facility]) Tobacco user Tobacco use disorder Encounter for smoking cessation counseling Kidney stone Calculus of kidney Adrenal mass 1 cm to 4 cm in diameter ([facility]) Radiculopathy, lumbar region Thoracic or lumbosacral neuritis or radiculitis, unspecified Non-seasonal allergic rhinitis, unspecified trigger Type 2 diabetes mellitus with unspecified complications Anxiety and depression ([facility])- Primary Morbid (severe) obesity due to excess calories ([facility]) Body mass index (BMI) 50.0-59.9, adult ([facility]) Malignant neoplasm of cervix uteri, unspecified Diabetic polyneuropathy associated with type 2 diabetes mellitus ([facility]) Chronic diastolic heart failure ([facility]) Chronic diastolic heart failure Primary hypertension ([facility]) Unspecified essential hypertension 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 Gastroesophageal reflux disease, unspecified whether esophagitis present Bilateral lower extremity edema Type 2 diabetes mellitus with complication, with long-term current use of insulin ([facility]) Tobacco user Tobacco use disorder Mixed hyperlipidemia ([facility]) Mixed hyperlipidemia Gout, unspecified cause, unspecified chronicity, unspecified site Vitamin deficiency Unspecified vitamin deficiency Gastro-esophageal reflux disease without esophagitis Edema, unspecified Edema Hyperlipidemia, unspecified ([facility]) Encounter for smoking cessation counseling Venous ulcer of right leg ([facility]) Antibiotic-induced yeast infection Primary hypertension ([facility])- Primary Unspecified essential hypertension Diabetic polyneuropathy associated with type 2 diabetes mellitus ([facility]) Chronic diastolic heart failure ([facility]) Chronic diastolic heart failure Bilateral lower extremity edema Morbid (severe) obesity due to excess calories ([facility]) Type 2 diabetes mellitus with complication, with long-term current use of insulin ([facility]) Anxiety and depression ([facility]) Cigarette nicotine dependence without complication Encounter for screening mammogram for malignant neoplasm of breast Insomnia Insomnia, unspecified Non-seasonal allergic rhinitis, unspecified trigger Type 2 diabetes mellitus with unspecified complications Vitamin D deficiency, unspecified Gastro-esophageal reflux disease without esophagitis PAD (peripheral artery disease) ([facility]) Unspecified peripheral vascular disease Gastroesophageal reflux disease, unspecified whether esophagitis present Venous ulcer of right leg ([facility]) documented in this encounter [facility] [...] History sepsis 2011 Hospitalization History SEE ABOVE [facility] Other Hospital course Narrative No data available for this section [facility] Sqord progress note No data available for this section [facility] reason for referral (narrative) , Referral to Dr. 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 Advance Directives and Living Will Power of Sider Mechanic Summary Purpose Family History No Family History Records FoundNo Family History Records FoundNo Family History Records FoundNo Family History Records Found No data available for this section No Family History Records FoundNo Family History Records Found Additional Source Comments INFORMATION SOURCE (unrecogn ized section and content) DATE CREATED AUTHOR 10/30/2019 [facility] DATE CREATED AUTHOR AUTHOR'S ORGANIZ ATION 09/15/2020 [facility] DATE CREATED AUTHOR AUTHOR'S ORGANIZ ATION 12/19/2022 [facility] DATE CREATED AUTHOR AUTHOR'S ORGANIZ ATION 06/03/2024 [facility] DATE CREATED AUTHOR AUTHOR'S ORGANIZ ATION 10/23/2024 [facility] DATE CREATED AUTHOR AUTHOR'S ORGANIZ ATION 10/28/2024 [facility] EPIC Care Team (unrecognized sect ion and content) Shipfitter Relationship Specialty Start Date End Date Ty Amin MD PCP - General Family Medicine 01/05/23 Shipfitter Relationship Specialty Start Date End Date Ty Amin MD PCP - General Family Medicine 01/05/23 Shipfitter Relationship Specialty Start Date End Date Ty Amin MD [address] [place] [address] PCP - General Family Medicine 09/20/23 Mckayla Blas NP [address] [place] [address] PCP - [facility] 09/07/23 09/05/90 Mckayla Blas NP [address] [place] [address] Nurse Practitioner Family Medicine 09/20/23 Shipfitter Relationship Specialty Start Date End Date Ty Amin MD [address] [place] [address] PCP - General Family Medicine 09/20/23 Mckayla Blas NP [address] [place] [address] PCP - [facility] 09/07/23 09/05/90 Mckayla Blas NP [address] [place] [address] Nurse Practitioner Family Medicine 09/20/23 Shipfitter Relationship Specialty Start Date End Date Ty Amin MD [address] [place] [address] PCP - General Family Medicine 09/20/23 Mckayla Blas NP [address] [place] [address] PCP [facility] 09/07/23 09/05/90 Mckayla Blas NP [address] [place] [address] Nurse Practitioner Family Medicine 09/20/23 Shipfitter Relationship Specialty Start Date End Date Ty Amin MD [address] [place] [address] PCP - General Family Medicine 09/20/23 Mckayla Blas NP [address] [place] [address] PCP - [facility] 09/07/23 09/05/90 Mckayla Blas NP [address] [place] [address] Nurse Practitioner Family Medicine 09/20/23 Shipfitter Relationship Specialty Start Date End Date Ty Amin MD [address] [place] [address] PCP - General Family Medicine 09/20/23 Mckayla Blas NP [address] [place] [address] [facility] 09/07/23 09/05/90 Mckayla Blas NP [address] [place] [address] Nurse Practitioner Family Medicine 09/20/23 Shipfitter Relationship Specialty Start Date End Date Ty Amin MD [address] [place] [address] PCP - General Family Medicine 09/20/23 Mckayla Blas NP [address] [place] [address] PCP - [facility] 09/07/23 09/05/90 Mckayla Blas NP [address] [place] [address] Nurse Practitioner Family Medicine 09/20/23 Shipfitter Relationship Specialty Start Date End Date Ty Amin MD [address] [place] [address] PCP - General Family Medicine 09/20/23 Mckayla Blas NP [address] [place] [address] PCP - [facility] 09/07/23 09/05/90 Mckayla Blas NP [address] [place] [address] Nurse Practitioner Family Medicine 09/20/23 Shipfitter Relationship Specialty Start Date End Date Ty Amin MD [address] [place] [address] PCP - General Family Medicine 09/20/23 Mckayla Blas NP [address] [place] [address] PCP [facility] 09/07/23 09/05/90 Mckayla Blas NP [address] [place] [address] Nurse Practitioner Family Medicine 09/20/23 Shipfitter Relationship Specialty Start Date End Date Ty Amin MD [address] [place] [address] PCP - General Family Medicine 09/20/23 Mckayla Blas NP [address] [place] [address] PCP - [facility] 09/07/23 09/05/90 Mckayla Blas NP [address] [place] [address] Nurse Practitioner Family Medicine 09/20/23 Shipfitter Relationship Specialty Start Date End Date Ty Amin MD [address] [place] [address] PCP - General Family Medicine 09/20/23 Mckayla Blas NP [address] [place] [address] [facility] 09/07/23 09/05/90 Mckayla Blas NP [address] [place] [address] Nurse Practitioner Family Medicine 09/20/23 Shipfitter Relationship Specialty Start Date End Date Ty Amin MD [address] [place] [address] PCP - General Family Medicine 09/20/23 Mckayla Blas NP [address] [place] [address] PCP - [facility] 09/07/23 09/05/90 Mckayla Blas NP [address] [place] [address] Nurse Practitioner Family Medicine 09/20/23 Shipfitter Relationship Specialty Start Date End Date Ty Amin MD [address] [place] [address] PCP - General Family Medicine 09/20/23 Mckayla Blas NP [address] [place] [address] PCP - [facility] 09/07/23 09/05/90 Mckayla Blas NP [address] [place] [address] Nurse Practitioner Family Medicine 09/20/23 Shipfitter Relationship Specialty Start Date End Date Ty Amin MD [address] [place] [address] PCP - General Family Medicine 09/20/23 Mckayla Blas NP [address] [place] [address] PCP [facility] 09/07/23 09/05/90 Mckayla Blas NP [address] [place] [address] Nurse Practitioner Family Medicine 09/20/23 Shipfitter Relationship Specialty Start Date End Date Ty Amin MD [address] [place] [address] PCP - General Family Medicine 09/20/23 Mckayla Blas NP [address] [place] [address] PCP - [facility] 09/07/23 09/05/90 Mckayla Blas NP [address] [place] [address] Nurse Practitioner Family Medicine 09/20/23 Shipfitter Relationship Specialty Start Date End Date Ty Amin MD [address] [place] [phone] PCP - General Family Medicine 09/20/23 Mckayla Blas NP [address] [place] [address] [facility] 09/07/23 09/05/90 Mckayla Blas NP [address] [place] [address] Nurse Practitioner Family Medicine 09/20/23 Shipfitter Relationship Specialty Start Date End Date Ty Amin MD [address] [place] [address] PCP - General Family Medicine 09/20/23 Mckayla Blas NP [address] [place] [address] PCP - [facility] 09/07/23 09/05/90 Mckayla Blas NP [address] [place] [address] Nurse Practitioner Family Medicine 09/20/23 REASON FOR [...] BE BASED ON THE PRIMARY CLINICAL RECORDS. [employer] provides no warranty or guarantee of the accuracy or completeness of information in this document.
[2024-12-04] MEDS: BUDESONIDE 0.5 MG/2 ML AMPULE NEB IH (22:26)
[2024-12-04] MEDS: ALBUTEROL SULFATE 2.5 MG/3 ML VIAL NEB IH (22:26)
[2024-12-04] MEDS: HYDRALAZINE HCL 25 MG TABLET PO (23:16)
[2024-12-04] MEDS: BACLOFEN 10 MG TABLET PO (23:16)
[2024-12-04] MEDS: HYDROCODONE/ACET 5-325 MG TABLET 1 TAB PO (23:16)
[2024-12-04] MEDS: INSULIN ASPART 300 UNIT/3 ML PEN SUBQ (23:17)
[2024-12-04] MEDS: DULOXETINE HCL 60 MG CAPSULE.DR PO (23:17)
[2024-12-04] MEDS: ENOXAPARIN SODIUM 40 MG/0.4 ML SYRINGE SUBQ (23:17)
[2024-12-04] MEDS: ATORVASTATIN CALCIUM 10 MG TABLET PO (23:17)
[2024-12-04] MEDS: PREGABALIN 100 MG CAPSULE 300 MG PO (23:17)
[2024-12-04] MEDS: INSULIN GLARGINE 300 UNIT/3 ML INSULN.PEN 58 UNIT SQ (23:21)
[2024-12-05] VITALS (15 sets, daily range): BP systolic 134–146; BP diastolic 51–76; PULSE 72–106; TEMP 36.8–37.3; O2SAT 85–97
[2024-12-05] MEDS: PIPERACILLIN SODIUM/TAZOBACTAM 3.375 GM in 0.9 % SODIUM CHLORIDE 50 ML IV ×2 (02:35→10:55)
[2024-12-05] MEDS: ALBUTEROL SULFATE 2.5 MG/3 ML VIAL NEB IH ×2 (05:01→10:18)
[2024-12-05] MEDS: BACLOFEN 10 MG TABLET PO (05:13)
[2024-12-05 05:32] LABS: Basophils Absolute Auto 0.1 10^3/uL (0.0-0.1); Basophils Percent Auto 0.3 % (0.2-2.0); Eosinophils Percent Auto 0.1 % (0.9-7.0); Hematocrit 45.8 % (36.0-48.0); Hemoglobin 14.6 g/dL (12.0-16.0); Immature Granulocytes Abs Auto 0.06 10^3/uL (0.00-0.03); Immature Granulocytes Pct Auto 0.4 % (0.0-0.5); Lymphocytes Absolute Auto 2.6 10^3/uL (1.2-3.8); Lymphocytes Percent Auto 15.5 % (20.5-60.0); Mean Corpuscular HGB Conc 31.9 g/dL (29.9-35.2); Mean Corpuscular Hemoglobin 29.1 pg (26.7-34.0); Mean Corpuscular Volume 91.2 fL (81.0-99.0); Mean Platelet Volume 12.9 fL (9.5-13.5); Monocytes Absolute Auto 1.1 10^3/uL (0.3-0.8); Monocytes Percent Auto 6.4 % (1.7-12.0); Neutrophils Absolute Auto 12.9 10^3/uL (1.4-6.5); Neutrophils Percent Auto 77.3 % (43.0-75.0); Platelet Count 107 10^3/uL (150-450); Red Blood Count 5.02 10^6/uL (4.20-5.40); Red Cell Distribution Width 15.7 % (11.0-15.0); White Blood Count 16.7 10^3/uL (4.0-11.0)
[2024-12-05 05:52] LABS: Alanine Aminotransferase 14 U/L (14-59); Albumin Globulin Ratio 0.6; Albumin Level 2.4 g/dL (3.4-5.0); Alkaline Phosphatase 62 U/L (46-116); Anion Gap 10.4; Aspartate Amino Transferase 12 U/L (15-37); BUN Creatinine Ratio 20.8; Bilirubin Total 0.7 mg/dL (0.2-1.0); Calcium 8.4 mg/dL (8.5-10.1); Carbon Dioxide 31.3 mmol/L (21.0-32.0); Chloride 104 mmol/L (98-107); Estimated GFR (African America >60 (>=60 mL/min/1.73m^2); Estimated GFR (Non-African Ame >60 (>=60 mL/min/1.73m^2); Globulin 4.2 g/dL; Glucose 169 mg/dL (74-106); Potassium 3.7 mmol/L (3.5-5.1); Sodium 142 mmol/L (136-145); Total Protein 6.6 g/dL (6.4-8.2)
--- NOTE | 2024-12-05 08:28 | CM.NOTE ---
Rounds made with Dr. Desouza, pt continues to require oxygen @ 4L [place]. Pt states she has oxygen at home and only wears when needed. Pt will need walk test prior to discharge. Discussed with pt am labs and diagnosis, pt requesting for discharge. Dr. Desouza will leave pt OBS status and re-evaluate this afternoon for discharge planning.
--- NOTE | 2024-12-05 09:06 | CM.NOTE ---
Called [facility] about pt's home oxygen. Account was inactivated September 2023 d/t inactivity on account. Pt was not ordering more supplies or refilling tanks. Rita unable to get in touch with pt to garbage pick up man tanks. Updated Dr. Desouza on home oxygen and need for a walk test and new order if pt will discharge with oxygen.
--- NOTE | 2024-12-05 09:11 | P.HP_ITS ---
HPI H&P: HPI History of Present Illness Chief complaint: UNRESPONSIVE, FEVER OF UNKNOWN ORIGIN,LEUKOCYTOSIS Narrative: Patient seen evaluated the emergency room with decreasing level of consciousness, fever and leukocytosis, patient was improving in ER, wanted to be discharged from the ER, they did talk her into least doing observation overnight to document overall improvement. Overnight she did have a significant fever I saw patient up in the medical surgical floor, she awakened easily, no specific complaint denied chest pain or shortness of breath, no abdominal complaints no UTI complaints Opioid HPI Opioid Management Most Recent Pain and Opioid Data: Last Pain Scale 9 12/04/24, 23:35 Last Pain Intensity 0 09/12/23, 11:19 Last Pain Assessment 12/04/24, 22:35 Last MAR Pain Assessment 12/04/24, 16:45 Last ORT Total Score 0 12/04/24, 21:57 Last ORT Risk Category Low Risk 12/04/24, 21:57 Review of Systems ROS Status of ROS 10 or more systems reviewed and unremark able except as noted in history and below PFSH PFSH Medical History COPD exacerbation ?J44.1 - Chronic obstructive pulmonary disease with (acute) exacerbation (ICD-10) Influenza A ?J10.1 - Influenza due to other identified influenza virus with other respiratory manifestations (ICD-10) Hypoxia ?R09.02 - Hypoxemia (ICD-10) Hypertension ?I10 - Essential (primary) hypertension (ICD-10) Obesity ?E66.9 - Obesity, unspecified (ICD-10) Amputation toe ?S98.139A - Complete traumatic amputation of one unspecified lesser toe, initial encounter (ICD-10) Neuropathy ?G62.9 - Polyneuropathy, unspecified (ICD-10) Acid reflux ?K21.9 - Gastro-esophageal reflux disease without esophagitis (ICD-10) Diabetes ?E11.9 - Type 2 diabetes mellitus without complications (ICD-10) COPD (chronic obstructive pulmonary disease) ?J44.9 - Chronic obstructive pulmonary disease, unspecified (ICD-10) Asthma ?J45.909 - Unspecified asthma, uncomplicated (ICD-10) High cholesterol ?E78.00 - Pure hypercholesterolemia, unspecified (ICD-10) Surgical History History of hammertoe correction ?Z98.890 - Other specified postprocedural states (ICD-10) ?Z87.39 - Personal history of other diseases of the musculoskeletal system and connective tissue (ICD-10) Hx of cholecystectomy ?Z90.49 - Acquired absence of other specified parts of digestive tract (ICD- 10) History of hysterectomy ?Z90.710 - Acquired absence of both cervix and uterus (ICD-10) Social History (Updated 12/04/24 @ 22:27 by Comfort Grimaldo RN) Within the past year, how often did you have a drink containing alcohol: never Within the past year, how often did you have six or more drinks on one occasion: never Score interpretation: A score less than 3 is consistent with normal alcohol consumption. Smoking status: Current some day smoker Second hand tobacco smoke exposure: Yes Non-prescribed substance use: denies use Known occupational exposures/hazards: No Highest level of school completed/degree received: Associate degree: occupational, technical, vocational program Are you now , , , , never or living with a partner: Little interest or pleasure in doing things: not at all Feeling down, depressed, or hopeless: not at all Feel stressed/tense/nervous/anxious/difficulty sleeping: not at all Meds Home Medications and Allergies Home Medications ?Medication ?Instructions ?Recorded ?Confirmed ?Type acetaminophen 500 mg capsule 1,000 mg PO Q6H PRN fever or pain 03/20/23 12/04/24 History amitriptyline 25 mg tablet 25 mg PO DAILY 03/20/23 History aspirin 81 mg tablet,delayed 81 mg PO DAILY 03/20/23 0 12/04/24 History release (Adult Aspirin Regimen) budesonide-formoterol HFA 160 2 inh inhalation BID 06/3012/04/24 History mcg-4.5 mcg/actuation aerosol inhaler (Symbicort) furosemide 40 mg tablet 40 mg PO DAILY 03/20/23 05/04/02 History insulin aspart U-100 100 unit/mL 1 sliding scale dose subcut 03/20/23 12/04/24 History (3 mL) subcutaneous pen (Novolog USEASDIRECTD FlexPen U-100 Insulin aspart) insulin glargine 100 unit/mL 58 unit subcut BID 12/04/24 History subcutaneous solution (Lantus U-100 Insulin) lisinopril 20 mg tablet 20 mg PO DAILY 03/20/2311/07 History omeprazole 20 mg capsule,delayed 20 mg PO DAILY 12/04/24 History release pregabalin 300 mg capsule 300 mg PO Q12H 03/20/2311/07 History duloxetine 60 mg capsule,delayed 60 mg PO BID #60 caps 04/05/23 12/04/24 Rx release dapagliflozin propanediol 10 mg 10 mg PO .QD 09/10/23 12/04/24 History tablet ergocalciferol (vitamin D2) 1,250 50,000 unit PO QWEEK 09/10/23 12/04/24 History mcg (50,000 unit) capsule potassium chloride 10 mEq 10 meq PO .QD 09/10/2312/04 History capsule,extended release simvastatin 10 mg tablet 10 mg PO QAM 09/10/23 History hydralazine 25 mg tablet 25 mg PO BID #60 tabs 12/04/24 Rx oseltamivir 75 mg capsule 75 mg PO BID #6 caps 4 12/04/24 Rx baclofen 10 mg tablet 10 mg PO TID 06/24/24 History hydrocodone 5 mg-acetaminophen 325 1 tab PO TID PRN pa in #80 tabs 06/30/24 12/04/24 Rx mg tablet hydrocodone 5 mg-acetaminophen 325 See Rx Instructions .Route 09/09/24 12/04/24 Rx mg tablet .COMPLEX PRN pain #80 tabs ammonium lactate 12 % lotion 1 applic topical DAILY 12/05/24 History Allergies Allergy/AdvReac Type Severity Reaction Status Date / Time No Known Drug Allergies Allergy Verified 06/10/24 08:21 Exam Constitutional Vital Signs, click to edit/add: Last Vital Signs Temp 98.3 F 12/05/24 09:04 Pulse 75 12/05/24 09:04 Resp 18 12/05/24 09:04 BP 134/76 12/05/24 09:04 Pulse Ox 90 L 12/05/24 09:04 O2 Del Method Nasal Cannula 12/05/24 09:04 O2 Flow Rate 4 12/05/24 09:04 Documenting provider has reviewed patient's vital signs: yes Common normals: no apparent distress Respiratory Common normals: normal respiratory effort and no retractions; not clear to ascultation bilaterally Auscultation: rhonchi Cardio Common normals: regular rate, regular rhythm and no murmurs GI Common normals: negative for Normal to inspection, nondistended, normoactive bowel sounds present (Severe morbid obesity) Extremity Common normals: abnormal to inspection (Severe ulcers lower extremity and healing stages) Results Labs Labs: Short CBC 12/04/24 12/05/24 Range/Units 16:44 04:52 WBC 20.7 H 16.7 H (4.0-11.0) 10^3/uL Hgb 16.5 H 14.6 (12.0-16.0) g/dL Hct 51.0 H 45.8 (36.0-48.0) % Plt Count 118 L 107 L (150-450) 10^3/uL BMP 12/04/24 12/05/24 16:44 04:52 Sodium 140 142 Potassium 4.8 3.7 Chloride 101 104 Carbon Dioxide 31.4 31.3 BUN 15.0 16.0 Creatinine 0.83 0.77 Glucose 231 H 169 H Calcium 8.8 8.4 L Liver Function 12/05/24 Range/Units 04:52 Total Bilirubin 0.7 (0.2-1.0) mg/dL AST 12 L (15-37) U/L ALT 14 (14-59) U/L Alkaline Phosphatase 62 (46-116) U/L Albumin 2.4 L (3.4-5.0) g/dL Urine 12/04/24 Range/Units 16:52 Urine Color Yellow (YELLOW) Urine Clarity Clear (CLEAR) Urine pH 6.5 (5.0-9.0) Ur Specific [place] 1.020 (1.005-1.025) Urine Protein 100 A (NEG/TRACE) mg/dL Urine Glucose (UA) Negative (NEGATIVE) mg/dL Assessment and Plan Assessment and Plan (1) Leukocytosis: (2) Generalized weakness: (3) Lumbar radiculopathy: (4) Wound infection: (5) COPD exacerbation: (6) Hypoxia: (7) Hypertension: Qualifiers: Hypertension type: unspecified Qualified Code(s): I10 - Essential (primary) hypertension Plan Admission findings: Hyperglycemia, fever, sinus tachycardia, respiratory distress, leukocytosis with left shift consistent with a bacterial process, polycythemia, thrombocytopenia secondary to acute exacerbation of COPD secondary to acute bronchitis Acute exacerbation of COPD secondary to acute bronchitis with fever, try to obtain sputum culture, steroids, antibiotics, aerosol treatments, patient does not use supplemental oxygen at home currently, will need a walk test, patient would like to be discharged and if she deteriorates she promises to return, will see how well she ambulates and if ambulating safely and oxygen can be a arranged, she may be able to be discharged later this morning, she may benefit medically from staying an additional day since she does have significant hypoxia and significant rhonchi on lung exam Polycythemia-this is likely secondary to chronic hypoxic state and COPD, back to baseline this morning Thrombocytopenia-likely chronic for her-monitor as an outpatient Diabetes mellitus-insulin sliding scale Insomnia-continue with home medications Low back pain-continue with home medications Depression-continue with home medications Vitamin D deficiency continue with home medications Chronic peripheral edema secondary to venous insufficiency-maintain current medications Hypertension continue with home medications Peripheral neuropathy continue with home medications GERD continue with home medications Hypercholesterolemia continue with home medications Admission status: Patient initially placed in observation status, patient would like to be discharged to home if she can ambulate safely, oxygen can be arranged at home, possible discharge to home and follow-up with PCP within the next few days. As long as prior and promises to return if dyspnea progresses Urinary Catheter Management Urinary Catheter Management Straight: Cath placed during this visit: yes Urethral indwelling: No Insertion date: 12/04/24 Insertion time: 17:07
--- NOTE | 2024-12-05 09:52 | CM.NOTE ---
Medicare Outpatient Observation Notice discussed with pt, pt verbalizes understanding and signs paper. Original given to pt and copy placed in pt's chart.
[2024-12-05] MEDS: BUDESONIDE 0.5 MG/2 ML AMPULE NEB IH (10:18)
[2024-12-05] MEDS: ASPIRIN 81 MG TABLET.DR PO (10:42)
[2024-12-05] MEDS: CANAGLIFLOZIN 100 MG TABLET 300 MG PO (10:42)
[2024-12-05] MEDS: AMITRIPTYLINE HCL 25 MG TABLET PO (10:43)
[2024-12-05] MEDS: LISINOPRIL 20 MG TABLET PO (10:43)
[2024-12-05] MEDS: DULOXETINE HCL 60 MG CAPSULE.DR PO (10:43)
[2024-12-05] MEDS: FUROSEMIDE 40 MG TABLET PO (10:43)
[2024-12-05] MEDS: HYDRALAZINE HCL 25 MG TABLET PO (10:43)
[2024-12-05] MEDS: PREGABALIN 100 MG CAPSULE 300 MG PO (10:43)
[2024-12-05] MEDS: PANTOPRAZOLE SODIUM 40 MG TABLET.DR PO (10:43)
[2024-12-05] MEDS: ENOXAPARIN SODIUM 40 MG/0.4 ML SYRINGE SUBQ (10:44)
[2024-12-05] MEDS: INSULIN GLARGINE 300 UNIT/3 ML INSULN.PEN 58 UNIT SQ (10:44)
[2024-12-05] MEDS: PREDNISONE 20 MG TABLET 40 MG PO (10:44)
[2024-12-05] MEDS: INSULIN ASPART 300 UNIT/3 ML PEN SUBQ (10:52)
[2024-12-05 11:02] LABS: Glucometer 195 mg/dL (74-106)
--- NOTE | 2024-12-05 14:31 | CM.NOTE ---
[facility]acarias butlert sent to Dr. Desouza regarding pt's walk test.
--- NOTE | 2024-12-05 15:07 | CM.NOTE ---
Pt has requested [facility] for oxygen, she has had them in the past. Faxed Face sheet, H&P, walk test, face-face evaluation and discharge summary along with DME order to [facility].
--- NOTE | 2024-12-05 15:16 | CM.NOTE ---
Called [facility], pt does have oxygen tanks at home. [facility] will reach out to patient to set up time and if they need any further information. RN updated.
--- NOTE | 2024-12-05 16:08 | PC.NURSE ---
when helping patient into the car she makes a comment about she doesnt know why she is going home on oxygen. RN informed her that her oxygen levels dropped when she ambulated and she goes well I dont ambulate at home . Patient educated on the importance of wearing the oxygen.
--- NOTE | 2024-12-08 13:32 | CM.DCFOLLOWU ---
Person spoke with: Mitzi How are you feeling? Much better How is your pain? No pain Did you understand your discharge instructions? Yes Do you have any questions about your discharge instructions? No Were you given any prescriptions at discharge? Yes Were you able to get your prescriptions filled? Yes Do you understand how to take your medications as ordered? Yes Do you have any questions about your follow up appointment and do you plan to keep your follow up appointment? No I have everything scheduled Is there anything else that you would like to discuss? No Questions/Comments/Concerns/Other:
== END 2024-12-05 16:08 | disposition home or self-care (01) ==
LOC: ER 20:11 → MS 21:41
PROVIDERS: Emergency Medicine; Registered Nurse; Admitting Provider Family Medicine; Emergency Provider Emergency Medicine; PCP Nurse Practitioner; Visit Provider Family Medicine
DX: J20.9 Acute bronchitis, unspecified (principal); J44.0 Chronic obstructive pulmonary disease with (acute) lower respiratory infection; R50.9 Fever, unspecified; D72.829 Elevated white blood cell count, unspecified; E66.01 Morbid (severe) obesity due to excess calories; R53.1 Weakness; M54.16 Radiculopathy, lumbar region; J44.1 Chronic obstructive pulmonary disease with (acute) exacerbation; R09.02 Hypoxemia; E11.65 Type 2 diabetes mellitus with hyperglycemia; Z79.4 Long term (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; R06.03 Acute respiratory distress; D75.1 Secondary polycythemia; D69.6 Thrombocytopenia, unspecified; M54.50 Low back pain, unspecified; F32.A Depression, unspecified; G47.00 Insomnia, unspecified; E55.9 Vitamin D deficiency, unspecified; I10 Essential (primary) hypertension; I87.2 Venous insufficiency (chronic) (peripheral); E11.42 Type 2 diabetes mellitus with diabetic polyneuropathy; K21.9 Gastro-esophageal reflux disease without esophagitis; E78.00 Pure hypercholesterolemia, unspecified; S81.802D Unspecified open wound, left lower leg, subsequent encounter; S81.801D Unspecified open wound, right lower leg, subsequent encounter; L08.9 Local infection of the skin and subcutaneous tissue, unspecified; Z68.43 Body mass index [BMI] 50.0-59.9, adult; Z90.49 Acquired absence of other specified parts of digestive tract; Z90.710 Acquired absence of both cervix and uterus; Z99.81 Dependence on supplemental oxygen
CPT/HCPCS: 36415; 71045; 74177; 80048; 80053; 81001; 83605; 85025; 87040; 87070; 87205; 87811; 93005; 94640; 94761; 96365; 96366; 96372; 99285; G0378; J1650; J2543; J7512; Q9967

== ENCOUNTER 2024-12-09 14:19 | Outpatient (OUT) | payer MEDICARE, OTHER, SELFPAY ==
--- OUTSIDE RECORDS SUMMARY | 2024-12-02 05:30 | XMS_ITS ---
Author Organization The [facility] in [place] Address [address] [place] [address] Care Team Providers Care Telecommunicator Name Role Phone Mckayla Blas CNP Primary Care Provider Armando Limon Unavailable [phone] REASON FOR VISIT 1YEAR-COPD Encounters Encounter Location Date Provider Diagnosis Pulmonary Medicine [place] [address] [place] [address] 12/02/2024 Armando Yañez Plan Of Treatment No Information Progress Notes * Mitzi MACIAS LDOB:[birth year] (54 yo F)Acc No.[id number]:12/02/2024 UNLOCKED PROGRESS NOTE Follow Up Patient: Mitzi COX Provider: Tray Yañez DO :1970 A ge:54 Y S ex:Female Date:12/02/2024 Address:[address] [place], [place] [address] Pcp:Mckayla Blas CNP Subjective: * Chief Complaints: * 1 . 1YEAR-COPD. * Medical History: Objective: * Vitals: Assessment: Plan: * Treatment: * * Electronic signature of Radha Yañez DO on 12/09/2024 at 02:21 PM EDT Sign off status: Pending Visit Status: N /S N/C (No Show/No Charge) * Provider: Tray Yañez DO Date: 0 12/02/2024 Generated for Vanessa ocampo/Luis/eTransmitting on: 0 12/09/2024 02:21 PM EDT
--- OUTSIDE RECORDS SUMMARY | 2024-12-02 05:47 | XMS_ITS ---
Author Organization The [facility] in [place] Address [address] [place] [address] Care Team Providers Care Ammunition Storekeeper Name Role Phone Mckayla Blas CNP Primary Care Provider Armando Limon [phone] REASON FOR VISIT No Show Appointment Encounters Encounter Location Date Provider Diagnosis Pulmonary Medicine [place] [address] [place] [address] 12/02/2024 Armando Yañez Plan Of Treatment No Information Progress Notes * MACIASMitzi CARPIO LDOB:[birth year] (54 yo F)Acc No.[id number]:12/02/2024 Patient: Mitzi COX :1970 A ge:54 Y S ex:Female Address:[address] [place] [address] * true * Date: Generated for Vanessa ocampo/Luis/eTransmitting on: 0 12/09/2024 06:29 AM EDT
--- OUTSIDE RECORDS SUMMARY | 2024-12-09 10:00 | XMS_ITS | Encounter Summary ---
Author Organization [facility] Address [address] [place] [address] Care Team Providers Care Pilot Plant Operator Helper Name Role Phone Ty Amin MD Primary Care Provider [phone] Mckayla Blas APPLICATION INTEGRATION SPECIALIST Unavailable [phone] Mckayla Blas APPLICATION INTEGRATION SPECIALIST Unavailable [phone] Reason for Visit * Reason Comments Hospital Follow-up Encounter Details Date Type Department Care Team (Late st Contact Info) Description 12/09/2024 10:00 AM EDT Office Visit [facility] [address] [place] [phone] Mckayla Blas APPLICATION INTEGRATION SPECIALIST [address] [place] [phone] Cellulitis of left lower extremity (Primary Dx); COPD exacerbation (CMS/HCC); Primary hypertension (CMS/HCC); Pulmonary hypertension (CMS/HCC); Morbid (severe) obesity due to excess calories (CMS/HCC); Type 2 diabetes mellitus with complication, with long-term current use of insulin (CMS/HCC); Anxiety and depression (CMS/HCC); Fever, unspecified fever cause Social History Tobacco Use Types Packs/Day Years Used Date Smoking Tobacco: Every Day Cigarettes Smokeless Tobacco: Never Alcohol Use Standard Drinks/Week Comments Never 0 (1 standard drink = 0.6 oz pur e alcohol) B1300 Health Literacy Answer Date Recor ded How often do you need to hav e someone help you when you read instructions, pamphlets, or other written material from your doctor or pharmacy? Rarely 08/26/2024 Humiliation, Afraid, Rape, and Kick questionnair e Answer Date Recorded Within the last year, have y ou been afraid of your partner or ex-partner? No 07/10/2023 Within the last year, have y ou been humiliated or emotionally abused in other ways by your partner or ex-partner? No Within the last year, have y ou been kicked, hit, slapped, or otherwise physically hurt by your partner or ex-partner? No 07/10/2023 Within the last year, have y ou been raped or forced to have any kind of sexual activity by your partner or ex-partner? No 07/10/2023 Social Connection and Isolat ion Panel [NHANES] Answer Date Recorded In a typical week, how many times do you talk on the phone with family, friends, or neighbors? More than three times a week 08/26/2024 How often do you get togethe r with friends or relatives? Once a week 08/26/2024 How often do you attend [facility] or rastafarian services? More than 4 times per year 08/26/2024 Do you belong to any clubs o r organizations such as judaism groups, unions, fraternal or athletic groups, or school groups? No 08/26/2024 How often do you attend meet ings of the clubs or organizations you belong to? Never 08/26/2024 Are you , , di vorced, , never , or living with a partner? 08/26/2024 AUDIT-C Answer Date Recorded Q1: How often do you have a drink containing alc ohol? Monthly or less 08/26/2024 Q2: How many drinks containi ng alcohol do you have on a typical day when you are drinking? 1 or 2 08/26/2024 Q3: How often do you have si x or more drinks on one occasion? Never 08/26/2024 Overall Financial Resource Strain (CARDIA) Answe r Date Recorded How hard is it for you to pa y for the very basics like food, housing, medical care, and heating? Not hard at all 08/26/2024 PHQ-2 Answer Date Recorded Patient Health Questionnaire-2 Score 1 01/17/2024 [facility] - Occupational Stress Questionnaire Answer Date Recorded Do you feel stress - tense, restless, nervous, or anxious, or unable to sleep at night because your mind is troubled all the time - these days? Only a little 08/26/2024 Exercise Vital Sign Answer Date Recorde d On average, how many days pe r week do you engage in moderate to strenuous exercise (like a brisk walk)? 0 days 08/26/2024 On average, how many minutes do you engage in exercise at this level? 10 min 08/26/2024 Hunger Vital Sign Answer Date Recorded Within the past 12 months, y ou worried that your food would run out before you got the money to buy more. Never true 08/26/19 25 Within the past 12 months, t he food you bought just didn't last and you didn't have money to get more. Never true 08/26/2024 PRAPARE - Transportation Answer Date Re corded In the past 12 months, has l ack of transportation kept you from medical appointments or from getting medications? No 08/09 In the past 12 months, has l ack of transportation kept you from meetings, work, or from getting things needed for daily living? No 08/26/2024 Housing Stability Vital Sign Answer Wilmer e Recorded In the last 12 months, was t here a time when you were not able to pay the mortgage or rent on time? No 07/10/2023 Number of Places Lived in the Last Year Not on f ile 07/10/2023 In the last 12 months, was t here a time when you did not have a steady place to sleep or slept in a long-term (including now)? No 07/10/2023 Housing Stability Vital Sign Answer Wilmer e Recorded In the last 12 months, was t here a time when you were not able to pay the mortgage or rent on time? No 08/26/2024 Number of Times Moved in the Last Year Not on fi le 08/26/2024 At any time in the past 12 m [facility], were you homeless or living in a long-term (including now)? No 08/26/2024 Comments Unknown Sex and Gender Information Value Date Recorded Sex Assigned at Not on file Legal Sex Female 6:50 PM EDT Gender Identity Not on file Sexual Orientation Not on file documented as of this encounter Last Filed Vital Signs Vital Sign Reading Time Taken Comments Blood Pressure 150/76 12/09/2024 10:19 AM EDT Pulse 71 12/09/2024 10:19 AM EDT Temperature 36.7 C (98 F) 12/09/2024 10:19 AM EDT Respiratory Rate 20 12/09/2024 10:19 AM EDT Oxygen Saturation 88% 12/09/2024 10:19 AM EDT Inhaled Oxygen Concentration - - Weight - - Height - - Body Mass Index - - documented in this encounter Patient Instructions * Patient Instructions* Mckayla Blas NP - 12/09/2024 10:00 AM EDT Keep appt with wound care today Keep fu with me, sooner if needed documented in this encounter Progress Notes * Mckayla Blas NP - 12/09/2024 11:27 AM EDTAssociated Problem(s): Cellulitis of left lower extremity Finish atbs Keep appt with wound care A febrile Will call me if worsening in sxs * PAOLA ROLON - 12/09/2024 10:00 AM EDT Pt has wound care appt at 2PM * Mckayla Blas NP - 12/09/2024 10:00 AM EDT Images from the original note were not included. Mitzi Macias is a 54 y.o. female presents with chief complaint of Hospital Follow-up HPI: ER follow up: Event happened 12/04/24: chills, fever, very tired did not know what was wrong, could not be arousedat home. Called EMS , they ultimately gave her Narcan, which she did become more alert after getting this, but again very groggy. Pt denies any inappropriate medication use, she and her are quite upset about the narcan, as she does not miss us her prescribed medications, and feel as though t his paints her in a bad light. She was ultimately taken to [facility] ER, no tox screen was done that I have seen. She did have an elevated WBC for her labs, it was felt that she likely had a COPD exacerbation as they could not find a source to her infection. She stayed overnight and was sent home on steroids and atb. She does report she is feeling better. She does see wound care for a venous ulcer on her RLE, in which they undressed this at the hospital and did not feel this was a result of her infection. They did not take down dressing on LLE, which when she got home, she said her LE was quite red, warm to touch and had some drainage (she showed me pics of then and now) it is improved. Her blood sugars are running between 200-250 but feels related to her steroids. No UTI sxs, blood cultures were negative as well SUBJECTIVE: MEDICATIONS: Current Outpatient Medications Medication Instructions Accu-Chek Guide Test test strip USE TO TEST BLOOD SUGAR 4 TIMES DAILY albuterol HFA 90 mcg/act inhaler 2 puffs, Every 4 hours PRN albuterol 2.5 mg, Every 6 hours PRN amitriptyline (ELAVIL) 25 mg, Oral, Nightly ammonium lactate (Lac-Hydrin) 12 % lotion APPLY TO BILATERAL FEET EVERY DAY amoxicillin-clavulanate (Augmentin) 875-125 MG tablet 1 tablet, Every 12 hours aspirin 81 mg, Oral, Daily baclofen (LIORESAL) [...] 3 days . Do not take cholesterol pillwhile taking this medication. Once finished then resume furosemide (LASIX) 20 mg, Oral, Daily PRN, Take in the afternoon as needed furosemide (LASIX) 40 mg, Oral, Daily hydrALAZINE (APRESOLINE) 25 mg, Oral, 2 times daily HYDROcodone-acetaminophen (Rio) 5-325 MG tablet 1 tablet, 3 times [...] patch, Transdermal, Every 24 hours, May either leavepatch on 24 hours, or apply in the morning and take of at bedtime, rotate sites omeprazole (PRILOSEC) 20 mg, Oral, Daily before breakfast oxygen (O2) 2 L/min, Continuous pen needle 32G x 5 mm misc 5 each, Daily potassium chloride ER (Micro-K) 10 MEQ ER capsule 10 mEq, Oral, Daily, Take 1 capsule (10 mEq) by mouth in the morning. predniSONE (Deltasone) 10 MG tablet 4 TABS X3 DAYS, 3TABS X3 DAYS, 2 TABS X3 DAYS, 1 TAB X3 DAYS, 1/2 TAB X4 DAYS pregabalin (LYRICA) 300 mg, Oral, 2 times [...] of Systems Constitutional: Negative for appetite change, chills, fatigue and fever. HENT: Negative for congestion, ear [...] CT Albuminuria 09/17/2023 Angiomyolipoma Anxiety and depression ([facility]) 07/10/2023 Asthma 07/10/2023 Body mass index (BMI) 50.0-59.9, adult ([facility]) Cellulitis of left lower extremity Cervical cancer ([facility]) 09/17/2023 Chronic pain of both knees 09/17/2023 COPD (chronic obstructive pulmonary disease) ([facility]) 07/10/2023 COPD exacerbation ([facility]) 09/17/2023 Decreased functional mobility 09/17/2023 Diabetic neuropathy ([facility]) 07/10/2023 Dietary counseling and surveillance Edema 07/10/2023 Elevated sed rate Elevated WBC count Essential (primary) hypertension ([facility]) GERD (gastroesophageal reflux disease) 09/17/2023 Hyperlipidemia ([facility]) 09/17/2023 Hypertension ([facility]) 07/10/2023 Insomnia 09/17/2023 intermediate manager (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 ([facility]) Lower extremity edema 09/17/2023 Mixed hyperlipidemia ([facility]) Morbid (severe) obesity due to excess calories ([facility]) Obstructive sleep apnea 07/10/2023 PAD (peripheral artery disease) ([facility]) 09/17/2023 Pancreatitis 09/17/2023 Pneumonia 09/17/2023 Proteinuria, unspecified Pulmonary hypertension ([facility]) 09/17/2023 Radiculopathy, lumbar region 09/17/2023 Tobacco user 09/17/2023 Type 2 diabetes mellitus with complication, with long-term current use of insulin ([facility]) 07/10/2023 Unilateral primary osteoarthritis, right hip 09/17/2023 [...] her father's sister. OBJECTIVE: Visit Vitals BP 150/76 (BP Location: Left arm, Patient Position: Sitting, BP Cuff Size: Large adult) Pulse 71 Temp 98 ??F (Temporal) Resp 20 SpO2 (!) 88% Smoking Status Every Day Physical Exam Vitals and nursing note reviewed. [...] Pulmonary effort is normal. Breath sounds: Wheezing (exp) and rhonchi present. Abdominal: General: Bowel sounds are normal. There is no distension. Palpations: Abdomen is soft. There is no mass. Tenderness: There is no abdominal tenderness. Musculoskeletal: General: Normal range of motion. Cervical back: Normal range of motion and neck supple. Right lower leg: Edema present. Left lower leg: Edema present. Comments: Wraps present on both legs, and she is following with wound care for this today Lymphadenopathy: Cervical: No cervical adenopathy. Skin: General: [...] file. Problem List Items Addressed This Visit Hypertension ([facility]) Please check blood pressure daily and record DASH diet Limit caffeine Take medication as directed Contact office if chest pain, pressure, dizziness, shortness of breath, swelling legs Recommend slow position changes Current meds: hydralazine, lisinopril, Type 2 diabetes mellitus with complication, with long-term current use of insulin ([facility]) Check blood sugars daily, notify if <70 or >200. Take medications (pills or insulin) as directed. Monitor for s/s of hypoglycemia (sweaty, dizziness, nausea, vomiting, or shakiness). Watch for increase in thirst, urination, or appetite. Inspect feet frequently monitoring for open wounds , andalso recommend yearly eye exam. Pt should attempt to remain as physically active as chronic conditions allow, as well as trying to follow a diet low in carbohydrates, and simple sugars. Continues to follow with [facility] On asa, tila, statin, farxiga, mounjaro Most recent A1c is 7.2% on 10/08/2024 Sugars are elevated, secondary to her steroids Anxiety and depression ([facility]) Current meds: elavil, duloxtine, COPD exacerbation ([facility]) Recent ER visit for unresponsiveness , found to have fever and elevated WBC Sent home with steroids and atb Breathing is better and she feels back to her normal baseline Does have home O2, she is not wearing this today Pulmonary hypertension ([facility]) Has seen [facility] Cardiology Morbid (severe) obesity due to excess calories ([facility]) Discussed with patient their BMI (actual, verses [...] loss. Is currently taking mounjaro for DM Fever Tylenol prn fever Finish atb's Cellulitis of left lower extremity - Primary Finish atbs Keep appt with wound care A febrile Will call me if worsening in sxs * Mckayla Blas NP - 12/09/2024 7:26 AM EDTAssociated Problem(s): Fever Tylenol prn fever Finish atb's * Mckayla Blas NP - 12/09/2024 7:24 AM EDTAssociated Problem(s): Anxiety and depression (CMS/HCC) Current meds: elavil, duloxtine, * Mckayla Blas NP - 12/09/2024 7:24 AM EDTAssociated Problem(s): Type 2 diabetes mellitus with complication, with long-term current use of insulin (CMS/HCC) Check blood sugars daily, notify if <70 or >200. Take medications (pills or insulin) as directed. Monitor for s/s of hypoglycemia (sweaty, dizziness, nausea, vomiting, or shakiness). Watch for increase in thirst, urination, or appetite. Inspect feet frequently monitoring for open wounds , andalso recommend yearly eye exam. Pt should attempt to remain as physically active as chronic conditions allow, as well as trying to follow a diet low in carbohydrates, and simple sugars. Continues to follow with [facility] On asa, tila, statin, farxiga, mounjaro Most recent A1c is 7.2% on 10/08/2024 Sugars are elevated, secondary to her steroids * Mckayla Blas NP - 12/09/2024 7:24 AM EDTAssociated Problem(s): Morbid (severe) obesity due to excess [...] loss. Is currently taking mounjaro for DM * Mckayla Blas NP - 12/09/2024 7:23 AM EDTAssociated Problem(s): Pulmonary hypertension (CMS/HCC) Has seen [facility] Cardiology * Mckayla Blas NP - 12/09/2024 7:23 AM EDTAssociated Problem(s): Hypertension (CMS/HCC) Please check blood pressure daily and record DASH diet Limit caffeine Take medication as directed Contact office if chest pain, pressure, dizziness, shortness of breath, swelling legs Recommend slow position changes Current meds: hydralazine, lisinopril, * Mckayla Blas NP - 12/09/2024 7:23 AM EDTAssociated Problem(s): COPD exacerbation (CMS/HCC) Recent ER visit for unresponsiveness , found to have fever and elevated WBC Sent home with steroids and atb Breathing is better and she feels back to her normal baseline Does have home O2, she is not wearing this today documented in this encounter Plan of Treatment Upcoming Encounters Date Type Department Care Team (Late st Contact Info) Description 01/26/2025 6:00 PM EDT Office Visit [facility] [address] [place] [address] Mckayla Blas NP [address] [place] [phone] 01/28/2025 10:50 AM EDT Office Visit [facility] [address] [place] [address] Rain Souza MD [address] [place] [address] documented as of this encounter Visit Diagnoses Diagnosis Cellulitis of left lower extremity- Primary COPD exacerbation (CMS/HCC) Obstructive chronic bronchitis with exacerbation Primary hypertension (CMS/HCC) Unspecified essential hypertension Pulmonary hypertension (CMS/HCC) Other chronic pulmonary heart diseases Morbid (severe) obesity due to excess calories (CMS/HCC) Type 2 diabetes mellitus with complication, with long-term current use of insulin ([facility]) Anxiety and depression ([facility]) Fever, unspecified fever cause documented in this encounter Additional Health Concerns Assessment Noted Time PHQ-9 Depression Total Score: 3 01/17/20 24 10:08 AM EDT documented as of this encounter Care Teams Pilot Plant Operator Helper Relationship Specialty Start Date End Date Ty Amin MD [address] [place] [phone] PCP - General Family Medicine 09/20/23 Mckayla Blas NP [address] [place] [phone] PCP - [facility] 09/07/23 09/05/90 Mckayla Blas NP [address] [place] [phone] Nurse Practitioner Family Medicine 09/20/23 documented as of this encounter
--- OUTSIDE RECORDS SUMMARY | 2024-12-09 14:21 | XMS_ITS | Encounter Summary ---
Author Organization [facility] Address [id number] [address] [place] [address] Care Team Providers Care Jig And Fixture Builder Apprentice Name Role Phone JuanjoseMckayla carcamo Krystal DINKEY ENGINE OPERATOR-VISUAL DEVELOPER Primary Care Provider Encounter Details Date Type Department Care Team (Late st Contact Info) Description 06/11/2020 Orders Only [facility] [address] [place] [phone] External, Scanning Provider Social History Tobacco Use Types Packs/Day Years Used Date Smoking Tobacco: Every Day Cigarettes Smokeless Tobacco: Never Alcohol Use Standard Drinks/Week Comments Yes 0 (1 standard drink = 0.6 oz pur e alcohol) RARE Childcare Answer Date Recorded Childcare Unknown 12/12/2018 Employment Answer Date Recorded Employment Unknown 12/12/2018 Comments Unknown Sex and Gender Information Value Date Recorded Sex Assigned at Not on file Legal Sex Female 11:50 AM EDT Gender Identity Not on file Sexual Orientation Not on file COVID-19 Exposure Response Date Recorded In the last month, have you been in contact with someone who was confirmed or suspected to have Coronavirus / COVID-19? No / Unsure 06/14/2020 10:45 AM EST documented as of this encounter Plan of Treatment Not on file documented as of this encounter Procedures Procedure Name Priority Date/Time Associated Diagnosis Comments BASIC METABOLIC PANEL Routine 05/31/2020 documented in this encounter Results * Basic Metabolic Panel (05/31/2020) us Scanning Provider External LAB BLOOD ORDERABLES Final Result MANUALLY TRANSCRIBED RESULTS documented in this encounter Visit Diagnoses Not on filedocumented in this encounter Care Teams Jig And Fixture Builder Apprentice Relationship Specialty Start Date End Date Mckayla Blas, DINKEY ENGINE OPERATOR-VISUAL DEVELOPER [address] [place] [address] PCP - General Nurse Practitioner 09/25/18 documented as of this encounter
--- OUTSIDE RECORDS SUMMARY | 2024-12-09 14:21 | XMS_ITS | Encounter Summary ---
Author Organization [facility] Address [address] [place] [address] Care Team Providers Care Crm Dynamics Developer Name Role Phone Ty Amin MD Primary Care Provider [phone] Mckayla Blas NP Unavailable [phone] Mckayla Blas NP Unavailable [phone] Encounter Details Date Type Department Care Team (Late st Contact Info) Description 05/12/2024 Clinisync Result Encounter [facility] External Department Unsolicited Provider, Generic External Data Social History Tobacco Use Types Packs/Day Years Used Date Smoking Tobacco: Every Day Cigarettes Smokeless Tobacco: Never Alcohol Use Standard Drinks/Week Comments Never 0 (1 standard drink = 0.6 oz pur e alcohol) Humiliation, Afraid, Rape, and Kick questionnair e [...] or ex-partner? No 07/10/2023 Social Connection and Isolation Panel [NHANES] A nswer Date Recorded In a typical week, how many times do you talk on the phone with family, friends, or neighbors? Twice a week 07/10/19 How often do you get togethe r with friends or relatives? Twice a week 07/10/2023 How often do you attend chur ch or latter day services? 1 to 4 times per year 07/10/2023 Do you belong to any clubs o r organizations such as shinto groups, unions, fraternal or athletic groups, or school groups? Yes 07/10/2023 How often do you attend meet ings of the clubs or organizations you belong to? 1 to 4 times per year 07/10/2023 Are you , , di vorced, , never , or living with a partner? 07/10/2023 AUDIT-C Answer Date Recorded Q1: How often do you have a drink containing alc ohol? Monthly or less 07/10/2023 Q2: How many drinks containi ng alcohol do you have on a typical day when you are drinking? 1 or 2 07/10/2023 Q3: How often do you have si x or more drinks on one occasion? Less than monthly 07/10/2023 Overall Financial Resource Strain (CARDIA) Answe r Date Recorded How hard is it for you to pa y for the very basics like food, housing, medical care, and heating? Not hard at all 07/10/2023 PHQ-2 Answer Date Recorded Patient Health Questionnaire-2 Score 1 01/17/2024 [facility] - Occupational Stress Questionnaire Answer Date Recorded Do you feel stress - tense, restless, nervous, or anxious, or unable to sleep at night because your mind is troubled all the time - these days? Only a little 07/10/2023 Exercise Vital Sign Answer Date Recorde d On average, how many days pe r week do you engage in moderate to strenuous exercise (like a brisk walk)? 7 days 07/10/2023 On average, how many minutes do you engage in exercise at this level? 10 min 07/10/2023 Hunger Vital Sign Answer Date Recorded Within the past 12 months, y ou worried that your food would run out before you got the money to buy more. Never true 07/10/19 24 Within the past 12 months, t he food you bought just didn't last and you didn't have money to get more. Never true 07/10/2023 PRAPARE - Transportation Answer Date Re corded In the past 12 months, has l ack of transportation kept you from medical appointments or from getting medications? No 08/2023 In the past 12 months, has l ack of transportation kept you from meetings, work, or from getting things needed for daily living? No 07/10/2023 Housing Stability Vital Sign Answer [...] place to sleep or slept in a retirement (including now)? No 07/10/2023 Comments Unknown Sex and Gender Information Value Date Recorded Sex Assigned at Not on file Legal Sex Female 6:50 PM EDT Gender Identity Not on file Sexual Orientation Not on file documented as of this encounter Plan of Treatment Upcoming Encounters Date Type Department Care Team (Late st Contact Info) Description 01/26/2025 6:00 PM EDT Office Visit [facility] [address] [place] [address] Mckayla Blas NP [address] [place] [address] 01/28/2025 10:50 AM EDT Office Visit [facility] [address] [place] [phone] Rain Souza MD [address] [place] [address] documented as of this encounter Procedures Procedure Name Priority Date/Time Associated Diagnosis Comments CT ABDOMEN PELVIS W CON 05/12/2024 2:16 PM EST documented in this encounter Results * CT ABDOMEN PELVIS W CON (05/12/2024 2:16 PM EST) Anatomical Region Laterality Modality Other 05/12/2024 2:16 PM EST Narrative 05/12/2024 2:19 [place] [address] CT Scan Report Signed Patient: MITZI MACIAS MR#: [id number] : 1970 Acct:[id number] Age/Sex: 53 / F ADM Date: 05/12/24 Loc: CT Attending Dr: Sarah MAYERS Ordering Physician: Sarah Vega Date of Service: 05/12/24 Procedure(s): CT abdomen pelvis w con Accession Number(s): [id number] cc: Mckayla Blas NP [place] [address] Patient Name: MITZI MACIAS MRN: [id number] date: 1970 Sex: F Assigned Patient Location: CT Current Patient Location: Accession/Order Number: [id number] Exam Date: 05/12/2024 11:15 Report Date: 05/12/2024 14:16 At the request of: SARAH VEGA Procedure: CT abdomen pelvis w con EXAM: CT abdomen pelvis w con HISTORY: Abnormal Mass COMPARISON: CT abdomen and pelvis 10/05/2022.. TECHNIQUE: Following intravenous administration of 1 cc of Omnipaque 300, axial soft tissue windows of the abdomen and pelvis were performed with coronal and sagittal reformats. CT dose reduction technique was used including Automated Exposure Control. Findings: ABDOMEN: There is fatty infiltration of the liver. The gallbladder is surgically absent. The spleen and pancreas are unremarkable. Nonobstructing 0.4 cm stone within the left kidney. No renal collecting system or ureteral dilatation bilaterally. Unremarkable right adrenal gland. Redemonstrated originating from the left adrenal gland is a 4.4 cm nodule with regions of macroscopic fat density likely relating to a myelolipoma. Evaluation of the bowel is limited given the absence of oral contrast. There are colonic diverticula. No bowel obstruction. The appendix is nondilated. The aorta is normal caliber. Mild atherosclerotic disease. No enlarged abdominal lymph nodes or free abdominal fluid. Body wall edema. Small fat-containing umbilicus hernia. Pelvis: Unremarkable bladder. The uterus is surgically absent. No enlarged pelvic lymph nodes or free pelvic fluid. No aggressive sclerotic or lytic osseous lesion. Grade 1 anterolisthesis of L4 on L5. Multilevel degenerative spondylosis. Findings are most pronounced extending from L3 caudally through S1. Severe right hip osteoarthritis. CT/CT abdomen pelvis w con IMPRESSION: 1. Left adrenal myelolipoma. 2. Nonobstructing left renal stone. 3. Other nonemergent findings, as described above. Electronically authenticated by: DAR DAI Date: 05/12/2024 14:16 Dictated By: Dar Dai M.D. Signed By: 05/12/24 1419 DD/ 1416 TD/TT: Core Drill Operator Helper: Procedure Note Radiology, Radiologist, MD - 05/12/2024 [place] [address] CT Scan Report Signed Patient: MITZI MACIAS LMR#: [id number] : 1970Acct:[id number] Age/Sex: 53 / FADM Date: 05/12/24 Loc: CT Attending Dr: Sarah MAYERS Ordering Physician: Sarah Vega Date of Service: 05/12/24 Procedure(s): CT abdomen pelvis w con Accession Number(s): [id number] cc: Mckayla Blas NP [address] [place] [address] Patient Name: MITZI MACIAS MRN: [id number] date: 1970 Sex: F Assigned Patient Location: CT Current Patient Location: Accession/Order Number: [id number] Exam Date: 05/12/2024 11:15 Report Date: 05/12/2024 14:16 At the request of: SARAH VEGA Procedure: CT abdomen pelvis w con EXAM: CT abdomen pelvis w con HISTORY: Abnormal Mass COMPARISON: CT abdomen and pelvis 10/05/2022.. TECHNIQUE: Following intravenous administration of 1 cc of Omnipaque 300, axial soft tissue windows of the abdomen and pelvis were performed with coronaland sagittal reformats. CT dose reduction technique was used includingAutomated Exposure Control. Findings: ABDOMEN: There is fatty infiltration of the liver. The gallbladder is surgically absent. The spleen and pancreas are unremarkable. Nonobstructing 0.4 cm stone within the left kidney. No renal collectingsystem or ureteral dilatation bilaterally. Unremarkable right adrenal gland. Redemonstrated originating from the left adrenal gland is a 4.4 cm nodule with regions of macroscopic fat density likely relating to a myelolipoma. Evaluation of the bowel is limited given the absence of oral contrast.There are colonic diverticula. No bowel obstruction. The appendix is nondilated. The aorta is normal caliber. Mild atherosclerotic disease. No enlarged abdominal lymph nodes or free abdominal fluid. Body wall edema. Small fat-containing umbilicus hernia. Pelvis: Unremarkable bladder. The uterus is surgically absent. No enlarged pelvic lymph nodes or free pelvic fluid. No aggressive sclerotic or lytic osseous lesion. Grade 1 anterolisthesisof L4 on L5. Multilevel degenerative spondylosis. Findings are most pronounced extending from L3 caudally through S1. Severe right hip osteoarthritis. CT/CT abdomen pelvis w con IMPRESSION: 1. Left adrenal myelolipoma. 2. Nonobstructing left renal stone. 3. Other nonemergent findings, as described above. Electronically authenticated by: DAR DAI Date: 05/12/2024 14:16 Dictated By: Dar Dai M.D. Signed By:05/12/24 1419 DD/ 1416 TD/TT: Core Drill Operator Helper: Generic External Data Provider [facility] Final Result documented in this encounter Visit Diagnoses Not on filedocumented in this encounter Additional Health Concerns Assessment Noted Time PHQ-9 Depression Total Score: 3 01/17/20 24 10:08 AM EDT documented as of this encounter Care Teams Crm Dynamics Developer Relationship Specialty Start Date End Date Ty Amin MD [address] [place] [address] PCP - General Family Medicine 09/20/23 Mckayla Blas NP [address] [place] [phone] PCP - [facility] 09/07/23 09/05/90 Mckayla Blas NP [address] [place] [address] Nurse Practitioner Family Medicine 09/20/23 documented as of this encounter
--- OUTSIDE RECORDS SUMMARY | 2024-12-09 14:21 | XMS_ITS | Encounter Summary ---
Author Organization [facility] Address [address] [place] [address] Care Team Providers Care Software Tools Engineer Name Role Phone Ty Amin MD Primary Care Provider [phone] Mckayla Blas NP Unavailable [phone] Mckayla Blas NP Unavailable [phone] Encounter Details Date Type Department Care Team (Late st Contact Info) Description 05/12/2024 Orders Only [facility] [address] [place] [phone] Angela Cochran NP [address] [place] [address] Social History Tobacco Use Types Packs/Day Years [...] friends, or neighbors? Twice a week 07/10/19 24 How often do you get togethe r with friends or relatives? Twice a week 07/10/2023 How often do you attend chur ch or anabaptist services? 1 to 4 times per year 07/10/2023 Do you belong to any clubs o r organizations such as orthodoxy groups, unions, fraternal or athletic groups, or [...] Recorded Patient Health Questionnaire-2 Score 1 01/17/2024 [facility]ational Stress Questionnaire Answer Date Recorded [...] 01/26/2025 6:00 PM EDT Office Visit [facility] [address] [place] [address] Mckayla Blas NP [address] [place] [address] 01/28/2025 10:50 AM EDT Office Visit [facility] [address] [place] [phone] Rain Souza MD [address] [place] [address] documented as of this encounter Procedures Procedure Name Priority Date/Time Associated Diagnosis Comments MR LUMBAR SPINE WO CONTRAST Routine 05/12/2024 3:27 PM EST documented in this encounter Results * MR lumbar spine wo contrast (05/12/2024 3:27 PM EST) Anatomical Region Laterality Modality Spine, L-spine Magnetic Resonan ce Angela Cochran NP IMG MRI PROCEDURES Final Result documented in this encounter Visit Diagnoses Not on filedocumented in this encounter Additional Health Concerns Assessment Noted Time PHQ-9 Depression Total Score: 3 01/17/20 10:08 AM EDT documented as of this encounter Care Teams Software Tools Engineer Relationship Specialty Start Date End Date Ty Amin MD [address] [place] [phone] PCP - General Family Medicine 09/20/23 Mckayla Blas NP [address] [place] [address] PCP - [facility] 09/07/23 09/05/90 Mckayla Blas NP [address] [place] [phone] Nurse Practitioner Family Medicine 09/20/23 documented as of this encounter
--- OUTSIDE RECORDS SUMMARY | 2024-12-09 14:21 | XMS_ITS | Clinical Summary ---
Author Organization Number 100 tem Address [id number] [address] [place] [address] Care Team Providers Care Surgical Clinical Reviewer Name Role Phone Wan Mckayla Krystal PEREZN-STACKER AND SORTER OPERATOR Primary Care Provider Allergies No known active allergies Medications vit 10-iron fum-folic 65-1 mg tabletIndicatio ns:Morbid obesity (CMS-HCC),Healt hcare maintenance Take 1 tablet by mouth daily. 90 tablet 3 0 Active albuterol (PROVENTIL,VENT JON) 2.5 mg /3 mL (0.083 %) nebulizer solution albuterol sulfate 2.5 mg/3 mL (0.083 %) solution for nebulization Active albuterol (PROVENTIL HFA;VENTOLIN HFA) 90 mcg/actuation inhaler as needed. Active amitriptyline (ELAVIL) 50 mg tablet Take 1 tablet (50 mg total) by mouth nightly. 0 Active baclofen (LIORESAL) 10 mg tablet Take 10 mg by mouth nightly. 0 Active budesonide-form oteroL (SYMBICORT) 160-4.5 mcg/actuation inhaler Inhale 2 puffs in the morning and 2 puffs before bedtime. Active TRULICITY 1.5 mg/0.5 mL pen injector inject one pen weekly 0 Active DULoxetine (CYMBALTA) 60 mg capsule Take 1 capsule (60 mg total) by mouth in the morning. 0 Active furosemide (LASIX) 40 mg tablet Take 1 tablet (40 mg total) by mouth daily. 0 Active HYDROcodone-tila taminophen (NORCO) 5-325 mg per tablet 2 (two) times a day. Active insulin aspart U-100 (NovoLOG) 100 unit/mL (3 mL) insulin pen Novolog Flexpen U-100 Insulin aspart 100 unit/mL (3 mL) subcutaneous Active insulin glargine (LANTUS, BASAGLAR) 100 unit/mL (3 mL) insulin pen Inject 55 Units under the skin in the morning and 55 Units before bedtime. Active ipratropium-alb uteroL (DUO-NEB) 0.5 mg-3 mg(2.5 mg base)/3 mL nebulizer as needed. Active lisinopriL (PRINIVIL,ZESTR IL) 10 mg tablet daily. Active meloxicam (MOBIC) 15 mg tablet daily. Active omeprazole (PriLOSEC) 20 mg capsule as needed. Active ondansetron (ZOFRAN) 4 mg tablet as needed. Active potassium chloride (KLOR-CON SPRINKLE) 10 MEQ CR capsule Take 1 capsule (10 mEq total) by mouth in the morning. 0 Active pregabalin (LYRICA) 300 mg capsule 2 (two) times a day. Active simvastatin (ZOCOR) 10 mg tablet Take 1 tablet (10 mg total) by mouth in the morning. 0 Active Active Problems Problem Noted Date Diagnosed Date Critical limb ischemia of right lower extremity 06/19/2024 Assessment & Plan (06/19/2024 2:15 PM EST): We will get PVR and CTA with runoff Venous ulcer of right leg 06/19/2024 Assessment & Plan (06/19/2024 2:16 PM EST): Continue wound care. We will get venous reflux ultrasound. Other chronic pain 09/16/2020 RAGHU positive 09/16/2020 Preop cardiovascular exam 05/28/2020 Smoking 05/28/2020 Assessment & Plan (06/19/2024 2:16 PM EST): Counseled on smoking cessation for at least 3 minutes. She is willing to quit. Morbid obesity 05/28/2020 BMI 50.0-59.9, adult 05/21/2020 Family History Medical History Relation Name Comments Cancer Paternal Grandfather Cancer Paternal Grandmother Heart disease Paternal Grandmother Stroke Paternal Grandmother Relation Name Status Comments Father Mother Paternal Grandfather Paternal Grandmother Social History Tobacco Use Types Packs/Day Years Used Date Smoking Tobacco: Every Day Cigarettes Smokeless Tobacco: Never Alcohol Use Standard Drinks/Week Comments Yes 0 (1 standard drink = 0.6 oz pur e alcohol) RARE Childcare Answer Date Recorded Childcare Unknown 12/12/2018 Employment Answer Date Recorded Employment Unknown 12/12/2018 Purpose - Life Answer Date Recorded Purpose and direction in life Unknown Comments Unknown Sex and Gender Information Value Date Recorded Sex Assigned at Not on file Legal Sex Female 11:50 AM EDT Gender Identity Not on file Sexual Orientation Not on file Last Filed Vital Signs Vital Sign Reading Time Taken Comments Blood Pressure 160/70 06/19/2024 11:26 AM EST Pulse 78 06/19/2024 11:26 AM EST Temperature 36.7 C (98 F) 06/19/2024 11:26 AM EST Respiratory Rate 20 06/19/2024 11:26 AM EST Oxygen Saturation 96% 06/11/2020 9:27 AM EST Inhaled Oxygen Concentration - - Weight 169.6 kg (374 lb) 06/19/2024 11:26 AM EST Height 170 cm (5' 6.93 ) 06/19/2024 11:26 AM EST Body Mass Index 58.7 06/19/2024 11:26 AM EST Plan of Treatment Health Maintenance Due Date Last Done Comments Depression Screening 1982 Tobacco Screening 1982 Adult BMI Follow Up Plan 1988 DTaP,Tdap and Td Vaccines (1 - Tdap) 1989 Pap Smear 1991 Zoster (Shingles) Vaccine (1 of 2) 2020 COVID-19 Vaccine (2023-2 5 season) 2024 07/19/2021, 10/28/2020, 10/08/2020 Influenza Vaccine 03/09/2025 05/18/2023, , 05/10/2016, Additional history exists Adult BMI Screening 06/19/2025 06/19/2024 Medical Devices Not on file Insurance MEDICAID [place] [employer] MEDICARE Care Teams Surgical Clinical Reviewer Relationship Specialty Start Date End Date Mckayla Blas APRN-STACKER AND SORTER OPERATOR [address] [place] [address] PCP - General Nurse Practitioner 09/25/18
--- OUTSIDE RECORDS SUMMARY | 2024-12-09 14:21 | XMS_ITS | Encounter Summary ---
Author Organization [facility] tem Address [id number] [address] [place] [address] Care Team Providers Care Line Construction Supervisor Name Role Phone JuanjoseMckayla carcamo Krystal PEREZN-CHILDREN'S ENTERTAINER Primary Care Provider Encounter Details Date Type Department Care Team (Late st Contact Info) Description 05/31/2020 Orders Only [facility] [address] [place] [phone] External, Scanning Provider Social History Tobacco Use [...] have Coronavirus / COVID-19? No / Unsure 05/24/2020 9:04 AM EST documented as of this encounter Plan of Treatment Not on file documented as of this encounter Procedures Procedure Name Priority Date/Time Associated Diagnosis Comments ECHO COMPLETE WO CONTRAST Routine 12/12/2016 documented in this encounter Results * Echo complete W/O contrast (12/12/2016) Anatomical Region Laterality Modality Chest N/A Ultrasound us Scanning Provider External CV ECHO ORDERABLES Fi nal Result documented in this encounter Visit Diagnoses Not on filedocumented in this encounter Care Teams Line Construction Supervisor Relationship Specialty Start Date End Date Mckayla Blas, SALES EXECUTIVE INSURANCE-CHILDREN'S ENTERTAINER [address] [place] [address] PCP - General Nurse Practitioner 09/25/18 documented as of this encounter
--- OUTSIDE RECORDS SUMMARY | 2024-12-09 14:21 | XMS_ITS | Encounter Summary ---
Author Organization [facility] Address [address] [place] [address] Care Team Providers Care Accessibility Lift Technician Name Role Phone Ty Amin MD Primary Care Provider [phone] Mckayla Blas NP Unavailable [phone] Mckayla Blas NP Unavailable [phone] Encounter Details Date Type Department Care Team (Late st Contact Info) Description 04/24/2024 Clinisync Result Encounter [facility] External Department Unsolicited [...] often do you attend chur ch or taoism services? 1 to 4 times per year 07/10/2023 Do you belong to any clubs o r organizations such as zoroastrian groups, unions, fraternal or athletic groups, or [...] Recorded Patient Health Questionnaire-2 Score 1 01/17/2024 [facility] - Occupational Stress [...] place to sleep or slept in a skilled nursing (including now)? No 07/10/2023 Comments Unknown Sex [...] Office Visit [facility] [address] [facility] [place] [address] Mckayla Blas NP [address] [place] [address] 01/28/2025 10:50 AM EDT Office Visit [facility] [address] [place] [phone] Rain Souza MD [address] [place] [address] documented as of this encounter Procedures Procedure Name Priority Date/Time Associated Diagnosis Comments SEGMENTAL BLOOD PRESSURE 04/24/2024 11:20 AM EDT documented in this encounter Results * SEGMENTAL BLOOD PRESSURE (04/24/2024 11:20 AM EDT) Anatomical Region Laterality Modality Radiographic Kalani ging 04/24/2024 11:2 0 AM EDT Narrative 04/24/2024 11:23 AM EDT The [address] [address] Vein Report Signed Patient: MITZI MACIAS MR#: [id number] : 1970 Acct:[id number] Age/Sex: 53 / F ADM Date: 04/24/24 Loc: VC Attending Dr: Rafael Gongora Ordering Physician: Rafael Gongora Date of Service: 04/24/24 Procedure(s): VC SEGMENTAL PRESSURES Accession Number(s): [id number] cc: Mckayla Blas SHOWROOM SALES ASSISTANT; Rafael Gongora [place] [id number] Patient Name: MITZI MACIAS MRN: [id number] date: 1970 Sex: F Assigned Patient Location: Current Patient Location: VC Accession/Order Number: [id number] Exam Date: 04/24/2024 10:25 Report Date: 04/24/2024 11:20 At the request of: RAFAEL GONGORA Procedure: VC SEGMENTAL PRESSURES EXAM: VC SEGMENTAL PRESSURES HISTORY: R09.89 COMPARISON: None. FINDINGS: Segmental pressures presented as follows (right, left) in mmHg. Brachial: 169, 166 Upper thigh: Not obtained Lower thigh: 129, 119 Calf: 124, 106 DPA: 108, 105 MANAGER PRIMARY CARE: 100, 91 1st Toe: 124, 142 ISABELLE: 0.64, 0.62 TBI: 0.73, 0.84 The ABIs are abnormal The TBI's are Acceptable PVR waveforms: Right leg: Above knee: Moderate ischemia Below knee: Moderate ischemia Right ankle: Moderate ischemia Metatarsal: Severe ischemia Left leg: Above knee: Moderate ischemia Below knee: Moderate to severe Right ankle: Moderate ischemia Metatarsal: Moderate ischemia VEIN/VC SEGMENTAL PRESSURES IMPRESSION: Bilateral diffuse moderate ischemic waveform The ABIs consistent with bilateral moderate arterial occlusive disease Electronically authenticated by: MARYANNE GARDNER Date: 04/24/2024 11:20 Dictated By: Maryanne Gardner M.D. Signed By: 04/24/24 1123 DD/ 1120 TD/TT: Showroom Salesperson: Procedure Note Radiology, Radiologist, - 04/24/2024 The [place] [id number] Vein Report Signed Patient: MITZI MACIAS LMR#: [id number] : 1970Acct:[id number] Age/Sex: 53 / FADM Date: 04/24/24 Loc: VC Attending Dr: Rafael Gongora Ordering Physician: Rafael Gongora Date of Service: 04/24/24 Procedure(s): VC SEGMENTAL PRESSURES Accession Number(s): [id number] cc: Mckayla Blas SHOWROOM SALES ASSISTANT; Rafael Gongora [facility] [place] [id number] Patient Name: MITZI MACIAS MRN: [id number] date: 1970 Sex: F Assigned Patient Location: Current Patient Location: VC Accession/Order Number: [id number] Exam Date: 04/24/2024 10:25 Report Date: 04/24/2024 11:20 At the request of: RAFAEL GONGORA Procedure: VC SEGMENTAL PRESSURES EXAM: VC SEGMENTAL PRESSURES HISTORY: R09.89 COMPARISON: None. FINDINGS: Segmental pressures presented as follows (right, left) in mmHg. Brachial: 169, 166 Upper thigh: Not obtained Lower thigh: 129, 119 Calf: 124, 106 DPA: 108, 105 MANAGER PRIMARY CARE: 100, 91 1st Toe: 124, 142 ISABELLE: 0.64, 0.62 TBI: 0.73, 0.84 The ABIs are abnormal The TBI's are Acceptable PVR waveforms: Right leg: Above knee: Moderate ischemia Below knee: Moderate ischemia Right ankle: Moderate ischemia Metatarsal: Severe ischemia Left leg: Above knee: Moderate ischemia Below knee: Moderate to severe Right ankle: Moderate ischemia Metatarsal: Moderate ischemia VEIN/VC SEGMENTAL PRESSURES IMPRESSION: Bilateral diffuse moderate ischemic waveform The ABIs consistent with bilateral moderate arterial occlusive disease Electronically authenticated by: MARYANNE GARDNER Date: 04/24/2024 11:20 Dictated By: Maryanne Gardner M.D. Signed By:04/24/24 1123 DD/ 1120 TD/TT: Showroom Salesperson: us Generic External Data Provider IMG XR PROCEDURES Final Result documented in this encounter Visit Diagnoses Not on filedocumented in this encounter Additional Health Concerns Assessment Noted Time PHQ-9 Depression Total Score: 3 01/17/20 24 10:08 AM EDT documented as of this encounter Care Teams Accessibility Lift Technician Relationship Specialty Start Date End Date Ty Amin MD [address] [place] [address] PCP - General Family Medicine 09/20/23 Mckayla Blas NP [address] [place] [address] PCP - [facility] 09/07/23 09/05/90 Mckayla Blas NP [address] [place] [address] Nurse Practitioner Family Medicine 09/20/23 documented as of this encounter
--- OUTSIDE RECORDS SUMMARY | 2024-12-09 14:21 | XMS_ITS | Encounter Summary ---
Author Organization [facility] Address [address] [place] [address] Care Team Providers Care Sawmill Or Timber Yard Worker Name Role Phone Ty Amin MD Primary Care Provider [phone] Ty Amin MD Primary Care Provider [phone] Mckayla Blas FUSELAGE FRAMER Unavailable [phone] Mckayla Blas FUSELAGE FRAMER Unavailable [phone] Encounter Details Date Type Department Care Team (Late st Contact Info) Description 08/31/2023 Clinisync Result Encounter [facility] External Department Unsolicited Andra Alcala PA [address] [place] [address] [address] [place], [place] [id number] Social History Tobacco Use Types Packs/Day Years [...] often do you attend chur ch or yarsanism services? 1 to 4 times per year 07/10/2023 Do you belong to any clubs o r organizations such as faith groups, unions, fraternal or athletic groups, or [...] Answer Date Recorded Patient Health Questionnaire-2 Score 2 07/10/2023 [facility] - Occupational Stress Questionnaire Answer [...] place to sleep or slept in a penitentiary (including now)? No 07/10/2023 Comments Unknown Sex and Gender Information Value Date Recorded Sex Assigned at Not on file Legal Sex Female 6:50 PM EDT Gender Identity Not on file Sexual Orientation Not on file documented as of this encounter Plan of Treatment Upcoming Encounters Date Type Department Care Team (Late st Contact Info) Description 01/26/2025 6:00 PM EDT [facility] [address] [place] [address] Mckayla Blas NP [address] [place] [address] 01/28/2025 10:50 AM EDT Office Visit [facility] [address] [place] [address] Rain Souza MD [address] [place] [address] documented as of this encounter Procedures Procedure Name Priority Date/Time Associated Diagnosis Comments BLOOD CULTURE 2 Routine 09/10/2023 2:22 PM EST BLOOD CULTURE 1 Routine 09/10/2023 2:05 PM EST ECG 12-LEAD 08/31/2023 6:08 PM EST documented in this encounter Results * BLOOD CULTURE 2 (09/10/2023 2:22 PM EST) BLOOD CULTURE 2 Blood Culture 2 NG5D NO GROWTH AT 5 DAYS.^NO GROWTH AT 5 DAYS. TB 09/10/2023 2:22 PM EST 09/10/2023 2:29 PM EST Narrative [facility] - 09/16/2023 1:07 PM EDT Generic External Data Provider LAB BLOOD ORDERAB LES Final Result [facility] * BLOOD CULTURE 1 (09/10/2023 2:05 PM EST) BLOOD CULTURE 1 Blood Culture 1 NG5D NO GROWTH AT 5 DAYS.^NO GROWTH AT 5 DAYS. [facility] 09/10/2023 2:05 PM EST 09/10/2023 2:28 PM EST Narrative [facility] - 09/16/2023 1:07 PM EDT Generic External Data Provider LAB BLOOD ORDERAB LES Final Result [facility] * ECG 12-LEAD (08/31/2023 6:08 PM EST) Anatomical Region Laterality Modality Other 08/31/2023 6:08 PM EST Narrative 09/02/2023 7:32 [place] [address] Electrocardiograph Report Signed Patient: MITZI MACIAS MR#: [id number] : 1970 Acct:[id number] Age/Sex: 53 / F ADM Date: 08/31/23 Loc: [place] 214-[address]: Jacqueline Becerra D.O. Ordering Physician: Andra Alcala Date of Service: 08/31/23 Procedure(s): ECG 12 lead Accession Number(s): [id number] cc: [facility] Test Date: 2023-08-31 Pat Name: MITZI MACIAS Department: Room: - Gender: Female Client Services Coordinator: : 1970 Requested By: MCKAYLA BLAS Order Number: [id number] Reading MD: LAURI DIOR Measurements Intervals [place] Rate: 102 P: 67 WA: 144 QRS: 52 QRSD: 72 T: 49 QT: 326 QTc: 385 Interpretive Statements 1120 Sinus tachycardia 4068 Nonspecific Twave abnormality 8102 Low QRS voltage in chest leads 9140 abnormal rhythm ECG Compared to ECG 12/04/2022 21:27:48 Electronically Signed On 09-02-2023 7:31:43 EST by LAURI DIOR Dictated By: Lauri Dior D.O. Signed By: 09/02/23 0732 DD/ 180 TD/TT: Jeweler Apprentice: Procedure Note Radiology, Radiologist, MD - 09/02/2023 [place] [address] Electrocardiograph Report Signed Patient: MITZI MACIAS LMR#: [id number] : 1970Acct:[id number] Age/Sex: 53 / FADM Date: 08/31/23 Loc: [place] 214-[address]: Jacqueline Becerra D.O. Ordering Physician: Andra Alcala Date of Service: 08/31/23 Procedure(s): ECG 12 lead Accession Number(s): [id number] cc: [facility] Test Date: 2023-08-31 Pat Name: MITZI MACIAS Department: Room: - Gender: Female Client Services Coordinator: : 1970 Requested By: MCKAYLA BLAS Order Number: [id number] Reading MD: LAURI DIOR Measurements Intervals [place] Rate: 102 P: 67 WA: 144 QRS: 52 QRSD: 72 T: 49 QT: 326 QTc: 385 Interpretive Statements 1120 Sinus tachycardia 4068 Nonspecific Twave abnormality 8102 Low QRS voltage in chest leads 9140 abnormal rhythm ECG Compared to ECG 12/04/2022 21:27:48 Electronically Signed On 09-02-2023 7:31:43 EST by LAURI DIOR Dictated By: Lauri Dior D.O. Signed By:09/02/23 0732 DD/ 1808 TD/TT: Jeweler Apprentice: us Andra [facility] Final Result documented in this encounter Visit Diagnoses Not on filedocumented in this encounter Care Teams Sawmill Or Timber Yard Worker Relationship Specialty Start Date End Date Ty Amin MD PCP - General Family Medicine 01/05/23 09/19/23 Ty Amin MD [address] [place] [address] PCP - General Family Medicine 09/20/23 Mckayla Blas NP [address] [place] [address] PCP - [facility] 09/07/23 09/05/90 Mckayla Blas NP [address] [place] [address] Nurse Practitioner Family Medicine 09/20/23 documented as of this encounter
--- OUTSIDE RECORDS SUMMARY | 2024-12-09 14:21 | XMS_ITS | Referral Summary ---
Author Organization [facility] Address [address] [place] [address] Care Team Providers Care Telephonic Case Manager Name Role Phone Mckayla Blas MD Primary Care Provider [phone] Encounters Date Type Department Care Team Description 10/21/[address] [facility] [address] [place] [address] Mickie Hammond MA from Last 3 Months Allergies No known active allergies Medications Medication Sig Dispensed Refills Start Date End Date Status amitriptyline (Elavil) 50 mg tablet Take 1 tablet by mouth at bedtime. Active baclofen (Lioresal) 10 mg tablet Take 1 tablet by mouth at bedtime. Active Breztri Aerosphere 160-9-4.8 mcg/actuation HFA aerosol inhaler INHALE 2 PUFFS BY MOUTH IN THE MORNING AND BEFORE BEDTIME *RINSE MOUTH AFTER USE* 11/02/2023 Active cetirizine (ZyrTEC) 10 mg tablet Take 10 mg by mouth if needed. 11/01/2023 Active Farxiga 10 mg 10 mg in the morning. 08/31/2023 Active diclofenac (Voltaren) 75 mg EC tablet Take 75 mg by mouth twice a day. 02/06/2022 Active Mounjaro 10 mg/0.5 mL pen injector INJECT 10MG SUBCUTANEOUSLY ONCE A WEEK 10/22/2023 Active insulin aspart (NovoLOG) 100 unit/mL (3 mL) injection pen Novolog Flexpen U-100 Insulin aspart 100 unit/mL (3 mL) subcutaneous Active insulin glargine (Lantus Solostar U-100 Insulin) 100 unit/mL (3 mL) injection pen INJECT 48 UNITS SUBCUTANEOUSLY TWICE DAILY 02/06/2022 Active HYDROcodone-acetam inophen ([place]) 5-325 mg tablet TAKE 1 TABLET BY MOUTH THREE TIMES A DAY NEEDED FOR PAIN MUST LAST 30 DAYS 11/09/2023 Active DULoxetine (Cymbalta) [address] capsule Take 1 tablet by mouth in the morning. Active ergocalciferol (Vitamin D-2) 1.25 MG (09818 Units) capsule Take 1.25 mg by mouth. Ac tive furosemide (Lasix) 40 mg tablet Take 1 tablet by mouth in the morning. Active furosemide (Lasix) 20 mg tablet if needed. 09/12/2023 Active hydrALAZINE (Apresoline) 25 mg tablet Take 25 mg by mouth in the morning and at bedtime. 09/27/2023 Active lisinopril 20 mg tablet Take 1 tablet by mouth in the morning. Active omeprazole (PriLOSEC) [address] capsule Take by mouth in the morning. 09/21/2023 Active potassium chloride ER (Micro-K) 10 mEq ER capsule Take 1 tablet by mouth in the morning. Active pregabalin (Lyrica) 300 mg capsule Take 1 capsule by mouth in the morning and at bedtime. Active simvastatin (Zocor) 10 mg tablet Take 1 tablet by mouth in the morning. Active roflumilast (Daliresp) 250 mcg tablet TAKE 1 TABLET BY MOUTH DAILY FOR 28 DAYS 11/02/2023 Active Active Problems Problem Noted Date Diagnosed Date Bad odor of urine 08/08/2024 Chronic diastolic heart failure 08/08/2024 Myelolipoma of adrenal gland 07/14/2024 Critical limb ischemia of right lower extremity 06/19/2024 Venous ulcer of right leg 06/19/2024 Mild nonproliferative diabet ic retinopathy of both eyes without macular edema associated with type 2 diabetes mellitus 05/13/2024 Overview (08/08/2024): Eye exam 05/13/24 Hyperpigmentation of skin 04/14/2024 Arthritis 11/14/2023 11/14/2023 Headache 11/14/2023 11/14/2023 Left flank pain 11/14/2023 11/14/2023 Mixed incontinence 11/14/2023 11/14/2023 Current smoker 11/14/2023 11/14/2023 Overview (11/14/2023): Added secondary to documentation in Social History. Candidiasis of breast 11/01/2023 11/14/2023 Overview (11/14/2023): Last Assessment & Plan: Skin care, Non-seasonal allergic rhinitis 11/01/2023 0 11/14/2023 Encounter for screening mamm ogram for malignant neoplasm of breast 11/01/2023 11/14/2023 Class 3 severe obesity with serious comorbidity and body mass index (BMI) of 50.0 to 59.9 in adult 09/27/2023 11/14/2023 Adrenal mass 1 cm to 4 cm in diameter 09/17/2023 11/14/2023 Albuminuria 09/17/2023 11/14/2023 Cervical cancer 09/17/2023 11/14/2023 Chronic pain of both knees 09/17/202311/13 Decreased functional mobility 09/17/2023 GERD (gastroesophageal reflux disease) 11/14/2023 Hyperlipidemia 09/17/2023 11/14/2023 Insomnia 09/17/2023 11/14/2023 Kidney stone 09/17/2023 11/14/2023 PAD (peripheral artery disease) 09/17/2023 11/14/2023 Pneumonia 09/17/2023 11/14/2023 Radiculopathy, lumbar region 09/17/202302/2024 Unilateral primary osteoarthritis, right hip 05/202411/14/2023 Venous insufficiency 09/17/2023 11/14/2023 Overview (11/14/2023): Last Assessment & Plan: Open wounds refer to [facility] Wound Care Vaginal yeast infection 08/17/2023 11/14/19 24 Anxiety and depression 07/10/2023 Bilateral lower extremity edema 07/10/2023 11/14/2023 Overview (11/14/2023): Last Assessment & Plan: Continue w pamela, discussed skin care regimines as well Diabetic neuropathy 07/10/2023 11/14/2023 Hypertension 07/10/2023 11/14/2023 Overview (11/14/2023): Last Assessment & Plan: No changes today in meds Obstructive sleep apnea 07/10/2023 11/14/19 24 Overview (11/14/2023): Last Assessment & Plan: DME needs to send her a new mask for her machine, I have emphasized the importance of getting in touch with them so she can do this Type 2 diabetes mellitus wit h complication, with long-term current use of insulin 07/10/2023 11/14/2023 Overview (11/14/2023): Last Assessment & Plan: Continue with [facility] for management RAGHU positive 09/16/2020 11/14/2023 Other chronic pain 09/16/2020 11/14/2023 BMI 50.0-59.9, adult 05/21/2020 11/14/2023 Easy bruising 10/23/2018 11/14/2023 Closed fracture of upper end of humerus 01/03/20 18 11/14/2023 Abdominal pannus 10/25/2017 11/14/2023 Asthma 10/25/2017 11/14/2023 Cardiomegaly 10/25/2017 11/14/2023 Overview (11/14/2023): borderline borderline Acute respiratory distress syndrome 10/25/2017 11/14/2023 Gout 10/25/2017 11/14/2023 Resolved Problems Problem Noted Date Diagnosed Date Resolved Date Pulmonary hypertension 09/17/2023 11/14/202308/08 Overview (11/14/2023): Last Assessment & Plan: Needs to wear her PAP I am also going to have her see [facility] Cardiology as well Social History Tobacco Use Types Packs/Day Years Used Date Smoking Tobacco: Every Day Cigarettes Smokeless Tobacco: Never Tobacco Cessation:Ready to Q uit: Not Asked; Counseling Given: Not Answered Alcohol Use Standard Drinks/Week Comments Not Currently 0 (1 standard drink = 0.6 oz pur e alcohol) DC Safety & Environment Answer Date Rec orded Fear of Current or Ex-Partner Not on file Emotionally Abused Not on file 08/30/2023 Physically Abused Not on file 08/30/2023 Sexually Abused Not on file 08/30/2023 Physically or Sexually Abused Not on file Sex and Gender Information Value Date Recorded Sex Assigned at Not on file Gender Identity Not on file Sexual Orientation Not on file Last Filed Vital Signs Vital Sign Reading Time Taken Comments Blood Pressure 134/68 08/08/2024 9:20 AM EST Pulse 80 08/08/2024 9:20 AM EST Temperature 36.7 C (98.1 F) 12/12/2018 2:44 PM EDT Respiratory Rate - - Oxygen Saturation 95% 08/08/2024 9:20 AM EST Inhaled Oxygen Concentration - - Weight 161 kg (354 lb) 11/14/2023 10:20 AM EDT Height 170.2 cm (5' 7 ) 08/08/2024 9:20 AM EST Body Mass Index 55.44 11/14/2023 10:20 AM EDT Plan of Treatment Upcoming Encounters Date Type Department Care Team (Late st Contact Info) Description 12/18/2024 2:20 PM EDT Office Visit [facility] [address] [place] [address] Karma Chatterjee CNP [address] [place] [address] Care Teams Telephonic Case Manager Relationship Specialty Start Date End Date Mckayla Blas MD [address] [place] [address] PCP - General Nurse Practitioner 11/13/23
--- OUTSIDE RECORDS SUMMARY | 2024-12-09 14:21 | XMS_ITS | Encounter Summary ---
Author Organization [facility] Address [address] [place] [address] Care Team Providers Care Cable Maintainer Name Role Phone Ty Aimn MD Primary Care Provider [phone] Ty Amin MD Primary Care Provider [phone] Mckayla Blas PERIODICALS CLERK Unavailable [phone] Mckayla Blas PERIODICALS CLERK Unavailable [phone] Encounter Details Date Type Department Care Team (Late st Contact Info) Description 09/12/2023 Orders Only [facility] [address] [place] [place] [address] Social History Tobacco Use Types Packs/Day Years [...] 07/10/2023 How often do you attend chur or protestant services? 1 to 4 times per year 07/10/2023 Do you belong to any clubs o r organizations such as scientologist groups, unions, fraternal [...] Recorded Patient Health Questionnaire-2 Score 2 07/10/2023 [facility] Occup[facility] ional Health - Occupational [...] in a long-term (including now)? No 07/10/2023 Comments Unknown Sex and Gender Information Value Date Recorded Sex Assigned at Not on file Legal Sex Female 6:50 PM EDT Gender Identity Not on file Sexual Orientation Not on file documented as of this encounter Plan of Treatment Upcoming Encounters Date Type Department Care Team (Late st Contact Info) Description 01/26/2025 6:00 PM EDT Office Visit [facility] [address] [place] [address] Mckayla Blas NP [address] [place] [address] 01/28/2025 10:50 AM EDT Office Visit [facility] [address] [place] [address] Rain Souza MD [address] [place] [address] documented as of this encounter Procedures Procedure Name Priority Date/Time Associated Diagnosis Comments XR CHEST 1 VIEW Routine 09/11/2023 4:52 PM EST documented in this encounter Results * XR chest 1 view (09/11/2023 4:52 PM EST) Anatomical Region Laterality Modality Chest Radiographic Kalani ging [facility] IMG XR PROCEDURES Final Result documented in this encounter Visit Diagnoses Not on filedocumented in this encounter Care Teams Cable Maintainer Relationship Specialty Start Date End Date Ty Amin MD PCP - General Family Medicine 01/05/23 09/19/23 Ty Amin MD [address] [place] [address] PCP - General Family Medicine 09/20/23 Mckayla Blas NP [address] [place] [address] PCP - [facility] 09/07/23 09/05/90 Mckayla Blas NP [address] [place] [address] Nurse Practitioner Family Medicine 09/20/23 documented as of this encounter
--- OUTSIDE RECORDS SUMMARY | 2024-12-09 14:21 | XMS_ITS | Encounter Summary ---
Author Organization [facility] Address [address] [place] [address] Care Team Providers Care Gamma Ray Operator Name Role Phone Ty Amin MD Primary Care Provider [phone] Mckayla Blas NP Unavailable [phone] Mckayla Blas NP Unavailable [phone] Encounter Details Date Type Department Care [...] often do you attend chur ch or muslim services? 1 to 4 times per year 07/10/2023 Do you belong to any clubs o r organizations such as synagogue groups, unions, fraternal or athletic groups, or [...] Recorded Patient Health Questionnaire-2 Score 1 01/17/2024 [facility] - Occupational [...] place to sleep or slept in a half-way (including now)? No 07/10/2023 Comments Unknown Sex [...] Office Visit [facility] [address] [facility] [place] [address] Mckayla Blas NP [address] [facility] [place] [address] 01/28/2025 10:50 AM EDT Office Visit [facility] [address] [place] [phone] Rain Souza MD [address] [place] [address] documented as of this encounter Procedures Procedure Name Priority Date/Time Associated Diagnosis Comments MR LUMBAR SPINE WO CON 05/12/2024 2:41 PM EST documented in this encounter Results * MR LUMBAR SPINE WO CON (05/12/2024 2:41 PM EST) Anatomical Region Laterality Modality Other 05/12/2024 2:41 PM EST Narrative 05/12/2024 2:43 [place] [address] Magnetic Resonance Report Signed Patient: MITZI MACIAS MR#: [id number] : 1970 Acct:[id number] Age/Sex: 53 / F ADM Date: 05/12/24 Loc: MRI Attending Dr: Angela Chin NP Ordering Physician: Angela Chin NP Date of Service: 05/12/24 Procedure(s): MR lumbar spine wo con Accession Number(s): [id number] cc: Mckayla Blas FOOD AND BEVERAGE CASHIER; Angela Chin NP [place] [id number] Patient Name: MITZI MACIAS MRN: [id number] date: 1970 Sex: F Assigned Patient Location: MRI Current Patient Location: CT Accession/Order Number: [id number] Exam Date: 05/12/2024 09:21 Report Date: 05/12/2024 14:41 At the request of: ANGELA CHIN Procedure: MR lumbar spine wo con EXAMINATION: MR lumbar spine wo con HISTORY: Lumbar Stenosis With Neuro Claudication COMPARISON: No relevant comparison available. TECHNIQUE: A variety of imaging planes and parameters were utilized for visualization of suspected pathology. FINDINGS: For the purposes of numbering, sagittal T2 image # 8 extends from the T11 vertebral body superiorly to the S3 level inferiorly. PARASPINAL AREA: Normal with no visible mass. BONES: No acute fracture or dislocation. No bone edema. 5 mm anterolisthesis of L4 on L5 CORD/CAUDA EQUINA: Normal caliber, contour, and signal intensity. DISC LEVELS: 12-L1: No significant disc/facet abnormality, spinal stenosis, or foraminal stenosis. L1-L2: No significant disc/facet abnormality, spinal stenosis, or foraminal stenosis. L2-L3: No significant disc/facet abnormality, spinal stenosis, or foraminal stenosis. L3-L4: Moderate to severe disc space narrowing and disc desiccation with endplate sclerosis. Posterior subligamentous disc herniation extending posteriorly up to 3.1 mm with inferior migration 4.5 mm. Moderate to severe ligamentum flavum hypertrophy and facet osteoarthropathy. Moderate narrowing of the central canal. Moderate to severe right and mild left foraminal stenosis L4-L5: 5 mm anterolisthesis of L5 on S1 with resultant bulge/pseudobulge. Moderate ligamentum flavum hypertrophy and facet osteophytes arthropathy. Severe central canal stenosis. Moderate to severe right and no left foraminal stenosis L5-S1: Moderate to severe disc space narrowing. Large posterior disc herniation of the protrusion type extending up to 6.6 mm. Bilateral facet osteoarthropathy. Mild narrowing of the central canal . No right and moderate left foraminal stenosis MR/MR lumbar spine wo con IMPRESSION: Extensive degenerative changes with disc herniations resulting in central and foraminal stenosis as detailed above Electronically authenticated by: MARYANNE GARDNER Date: 05/12/2024 14:41 Dictated By: Maryanne Gardner M.D. Signed By: 05/12/24 1443 DD/ 1441 TD/TT: Case Managers: Procedure Note Radiology, Radiologist, MD - 05/12/2024 [place] [address] Magnetic Resonance Report Signed Patient: MITZI MACIAS LMR#: [id number] : 1970Acct:[id number] Age/Sex: 53 / FADM Date: 05/12/24 Loc: MRI Attending Dr: Angela Chin NP Ordering Physician: Angela Chin NP Date of Service: 05/12/24 Procedure(s): MR lumbar spine wo con Accession Number(s): [id number] cc: Mckayla Blas NP; Angela Chin NP [facility] [place] [address] Patient Name: MITZI MACIAS MRN: [id number] date: 1970 Sex: F Assigned Patient Location: MRI Current Patient Location: CT Accession/Order Number: [id number] Exam Date: 05/12/2024 09:21 Report Date: 05/12/2024 14:41 At the request of: ANGELA CHIN Procedure: MR lumbar spine wo con EXAMINATION: MR lumbar spine wo con HISTORY: Lumbar Stenosis With Neuro Claudication COMPARISON: No relevant comparison available. TECHNIQUE: A variety of imaging planes and parameters were utilized for visualization of suspected pathology. FINDINGS: For the purposes of numbering, sagittal T2 image # 8 extends from the T11 vertebral body superiorly to the S3 level inferiorly. PARASPINAL AREA: Normal with no visible mass. BONES: No acute fracture or dislocation. No bone edema. 5 mmanterolisthesis of L4 on L5 CORD/CAUDA EQUINA: Normal caliber, contour, and signal intensity. DISC LEVELS: 12-L1: No significant disc/facet abnormality, spinal stenosis, orforaminal stenosis. L1-L2: No significant disc/facet abnormality, spinal stenosis, orforaminal stenosis. L2-L3: No significant disc/facet abnormality, spinal stenosis, orforaminal stenosis. L3-L4: Moderate to severe disc space narrowing and disc desiccation with endplate sclerosis. Posterior subligamentous disc herniation extending posteriorly up to 3.1 mm with inferior migration 4.5 mm. Moderate tosevere ligamentum flavum hypertrophy and facet osteoarthropathy. Moderatenarrowing of the central canal. Moderate to severe right and mild left foraminalstenosis L4-L5: 5 mm anterolisthesis of L5 on S1 with resultant bulge/pseudobulge. Moderate ligamentum flavum hypertrophy and facet osteophytes arthropathy. Severe central canal stenosis. Moderate to severe right and no leftforaminal stenosis L5-S1: Moderate to severe disc space narrowing. Large posterior disc herniation of the protrusion type extending up to 6.6 mm. Bilateral facet osteoarthropathy. Mild narrowing of the central canal . No right andmoderate left foraminal stenosis MR/MR lumbar spine wo con IMPRESSION: Extensive degenerative changes with disc herniations resulting in centraland foraminal stenosis as detailed above Electronically authenticated by: MARYANNE GARDNER Date: 05/12/2024 14:41 Dictated By: Maryanne Gardner M.D. Signed By:05/12/24 1443 DD/ 144 TD/TT: Case Managers: us Generic External Data Provider [facility] Final Result documented in this encounter Visit Diagnoses Not on filedocumented in this encounter Additional Health Concerns Assessment Noted Time PHQ-9 Depression Total Score: 3 01/17/20 24 10:08 AM EDT documented as of this encounter Care Teams Gamma Ray Operator Relationship Specialty Start Date End Date Ty Amin MD [address] [place] [address] PCP - General Family Medicine 09/20/23 Mckayla Blas NP [address] [place] [address] PCP - [facility] 09/07/23 09/05/90 Mckayla Blas NP [address] [place] [address] Nurse Practitioner Family Medicine 09/20/23 documented as of this encounter
--- OUTSIDE RECORDS SUMMARY | 2024-12-09 14:21 | XMS_ITS | Encounter Summary ---
Author Organization [facility] Address [address] [place] [address] Care Team Providers Care Publications Distribution Clerk Name Role Phone Ty Amin MD Primary Care Provider [phone] Mckayla Blas OVERLOCK SLEEVE SETTER Unavailable [phone] Mckayla Blas OVERLOCK SLEEVE SETTER Unavailable [phone] Encounter Details Date Type Department Care Team (Late st Contact Info) Description 04/14/2024 Orders Only [facility] [address] [place] [address] Mckayla Blas OVERLOCK SLEEVE SETTER [address] [place] [address] Social History Tobacco Use Types Packs/Day Years [...] often do you attend chur ch or church services? 1 to 4 times per year 07/10/2023 Do you belong to any clubs o r organizations such as baptist groups, unions, fraternal or athletic groups, or [...] Recorded Patient Health Questionnaire-2 Score 1 01/17/2024 [facility] - Occupational [...] place to sleep or slept in a custodial (including now)? No 07/10/2023 Comments Unknown Sex [...] Visit [facility] [address] [place] [address] Mckayla Blas NP [address] [place] [address] 01/28/2025 10:50 AM EDT Office Visit [facility] [address] [place] [phone] Rain Souza MD [address] [place] [address] documented as of this encounter Procedures Procedure Name Priority Date/Time Associated Diagnosis Comments XR ANKLE 3+ VIEWS RIGHT Routine 04/14/2024 2:57 PM EDT XR ANKLE 3+ VIEWS RIGHT Routine 04/14/2024 11:20 AM EDT documented in this encounter Results * XR ankle 3+ views right (04/14/2024 2:57 PM EDT) Anatomical Region Laterality Modality Lower Extremities, Ankle Right Radiogr aphic Imaging us Mckayla Wan SCHAEFER IMG XR PROCEDURES Final Result * XR ankle 3+ views right (04/14/2024 11:20 AM EDT) Anatomical Region Laterality Modality Lower Extremities, Ankle Right Radiogr aphic Imaging us Mckayla Wan SCHAEFER IMG XR PROCEDURES Final Result documented in this encounter Visit Diagnoses Not on filedocumented in this encounter Additional Health Concerns Assessment Noted Time PHQ-9 Depression Total Score: 3 01/17/20 10:08 AM EDT documented as of this encounter Care Teams Publications Distribution Clerk Relationship Specialty Start Date End Date Ty Amin MD [address] [place] [address] PCP - General Family Medicine 09/20/23 Mckayla Blas NP [address] [place] [address] PCP - [facility] 09/07/23 09/05/90 Mckayla Blas NP [address] [place] [address] Nurse Practitioner Family Medicine 09/20/23 documented as of this encounter
--- OUTSIDE RECORDS SUMMARY | 2024-12-09 14:21 | XMS_ITS | Encounter Summary ---
Author Organization [employer] Address [id number] [address] [place] [address] Care Team Providers Care Crib Tender Name Role Phone JuanjoseMckayla carcamo Krystal REDUCING SYSTEM OPERATOR-PUBLIC SAFETY TEACHER Primary Care Provider Encounter Details Date Type Department Care Team (Late st Contact Info) Description 05/31/2020 Orders Only [facility] [address] [place] [phone] External, Scanning Provider Social History Tobacco Use [...] Procedure Name Priority Date/Time Associated Diagnosis Comments VASC VENOUS DUPLEX LOWER BILATERAL Routine 2019 CT CHEST W CONT Routine 08/07/2019 ECG 12-LEAD Routine 06/22/2019 CT CHEST W CONT Routine 06/21/2019 XR CHEST 2 VWS Routine 06/21/2019 ECG 12-LEAD Routine 06/21/2019 PULMONARY FUNCTION TEST Routine 10/24/2018 NUC STRESS LEXISCAN/EXERCISE Routine 12/12/2016 documented in this encounter Results * Vas venous duplex lwr bilateral (2019) Anatomical Region Laterality Modality Vascular Bilateral Ultrasound us Scanning Provider External CV VASCULAR ORDERABLE S Final Result * CT chest with contrast (08/07/2019) Anatomical Region Laterality Modality Body, Lung, Chest, Body Covera N/A C omputed Tomography us Scanning Provider External IMG CT ORDERABLES Fin al Result * ECG 12 lead (06/22/2019) us Scanning Provider External ECG ORDERABLES Final Result Performing Organization Address [facility] Co de Phone Number MANUALLY TRANSCRIBED RESULTS * X-ray chest 2 views (06/21/2019) Anatomical Region Laterality Modality Body, Chest N/A Computed Radiogr aphy us Scanning Provider External IMG DIAGNOSTIC IMAGIN G ORDERABLES Final Result * CT chest with contrast (06/21/2019) Anatomical Region Laterality Modality Body, Lung, Chest, Body Covera N/A C omputed Tomography us Scanning Provider External IMG CT ORDERABLES Fin al Result * ECG 12 lead (06/21/2019) us Scanning Provider External ECG ORDERABLES Final Result Performing Organization Address [facility] Co de Phone Number MANUALLY TRANSCRIBED RESULTS * Pulmonary function test (10/24/2018) us Scanning Provider External PFT ORDERABLES Final Result Performing Organization Address [facility] Co de Phone Number MANUALLY TRANSCRIBED RESULTS * Nuc stress Lexiscan/Exercise (12/12/2016) Anatomical Region Laterality Modality Chest N/A Nuclear Medicine us Scanning Provider External CV STRESS ORDERABLES Final Result documented in this encounter Visit Diagnoses Not on filedocumented in this encounter Care Teams Crib Tender Relationship Specialty Start Date End Date Mckayla Blas, REDUCING SYSTEM OPERATOR-PUBLIC SAFETY TEACHER [address] [place] [address] PCP - General Nurse Practitioner 09/25/18 documented as of this encounter
--- OUTSIDE RECORDS SUMMARY | 2024-12-09 14:21 | XMS_ITS | Encounter Summary ---
Author Organization [facility] Address [address] [place] [address] Care Team Providers Care Door Liner Helper Name Role Phone Ty Amin MD Primary Care Provider [phone] Mckayla Blas GMAT INSTRUCTOR Unavailable [phone] Mckayla Blas GMAT INSTRUCTOR Unavailable [phone] Encounter Details Date Type Department Care Team (Late st Contact Info) Description 07/14/2024 Orders Only [facility] [address] [place] [address] Mckayla Blas GMAT INSTRUCTOR [address] [place] [address] Social History Tobacco Use Types Packs/Day Years [...] often do you attend chur ch or alevism services? 1 to 4 times per year 07/10/2023 Do you belong to any clubs o r organizations such as gnosticist groups, unions, fraternal or athletic groups, or [...] Recorded Patient Health Questionnaire-2 Score 1 01/17/2024 [facility] - Occupational [...] place to sleep or slept in a correction (including now)? No 07/10/2023 Comments Unknown Sex and Gender Information Value Date Recorded Sex Assigned at Not on file Legal Sex Female 6:50 PM EDT Gender Identity Not on file Sexual Orientation Not on file documented as of this encounter Plan of Treatment Upcoming Encounters Date Type Department Care Team (Late st Contact Info) Description 01/26/2025 6:00 PM EDT Office Visit [facility] [address] [place] [address] Mckayla Blas NP [address] [place] [address] 01/28/2025 10:50 AM EDT Office Visit [facility] [address] [place] [address] Rain Souza MD [address] [place] [address] documented as of this encounter Procedures Procedure Name Priority Date/Time Associated Diagnosis Comments DIABETIC RETINOPATHY SCREENING - OU - BOTH EYES Routine 07/14/2024 3:09 PM EST documented in this encounter Results * Diabetic Retinopathy Screening - OU - Both Eyes (07/14/2024 3:09 PM EST) Anatomical Region Laterality Modality Head Other Mckayla Blas NP OPHTH PHOTOGRAPHY Final Result documented in this encounter Visit Diagnoses Not on filedocumented in this encounter Additional Health Concerns Assessment Noted Time PHQ-9 Depression Total Score: 3 01/17/20 24 10:08 AM EDT documented as of this encounter Care Teams Door Liner Helper Relationship Specialty Start Date End Date Ty Amin MD [address] [place] [address] PCP - General Family Medicine 09/20/23 Mckayla Blas NP [address] [place] [address] PCP - [facility] 09/07/23 09/05/90 Mckayla Blas NP [address] [place] [address] Nurse Practitioner Family Medicine 09/20/23 documented as of this encounter
--- OUTSIDE RECORDS SUMMARY | 2024-12-09 14:21 | XMS_ITS | Encounter Summary ---
Author Organization [email or web address] Address [id number] [address] [place] [address] Care Team Providers Care Clinic Md Associate Name Role Phone Mckayla Blas APRN-FINAL COAT SPRAYER Primary Care Provider Encounter Details Date Type Department Care Team (Late st Contact Info) Description 05/03/2020 [facility]phone [facility] [address] [place] [address] [address]ero [address], [address] [id number] Social History Tobacco Use Types Packs/Day Years [...] have Coronavirus / COVID-19? No / Unsure 04/28/2020 1:10 PM EDT documented as of this encounter Plan of Treatment Not on file documented as of this encounter Visit Diagnoses Not on filedocumented in this encounter Care Teams Clinic Md Associate Relationship Specialty Start Date End Date Mckayla Blas APRN-[place] [address] PCP - General Nurse Practitioner 09/25/18 documented as of this encounter
--- OUTSIDE RECORDS SUMMARY | 2024-12-09 14:22 | XMS_ITS | Clinical Summary ---
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 Active pen needle 32G x 5 mm misc Inject 5 each under the skin 1 (one) time each day. Use as instructed Active albuterol (2.5 MG/3ML) 0.083% nebulizer solution Take 2.5 mg by nebulization every 6 (six) hours if needed for wheezing. Active HYDROcodone-acetam inophen ([place]) 5-325 MG tablet 1 tablet 3 (three) times a day as needed for severe pain. Active insulin glargine (Lantus) 100 UNIT/ML injection Inject 58 Units under the skin in the morning and 58 Units before bedtime. Active diclofenac (Voltaren) 75 MG EC tablet Take 75 mg by mouth in the morning and 75 mg before bedtime. Do not crush, chew, or split. . Active oxygen (O2) gas Inhale 2 L/min continuously via nasal canula Active ipratropium-albute rol (Duo-Neb) 0.5-2.5 mg/3 mL nebulizer solution Daily as needed Active Insulin Lispro (HUMALOG KWIKPEN SC) Inject under the skin 3 (three) times a day before meals 8-10-12 units before meals and sliding scale Active pregabalin (Lyrica) 300 MG capsuleIndications :Diabetic polyneuropathy associated with type 2 diabetes mellitus (CMS/HCC) Take 1 capsule (300 mg) by mouth in the morning and 1 capsule (300 mg) before bedtime. 60 capsule 5 04/14/20 24 Active Tirzepatide (Mounjaro) 15 MG/0.5ML solution auto-injectorIndic ations:Type 2 diabetes mellitus with other circulatory complications INJECT 15MG SUBCUTANEOUSLY ONCE A WEEK 6 mL 1 07/07/20 24 Active Accu-Chek Guide Test test stripIndications:T ype 2 diabetes mellitus with other circulatory complications USE TO TEST BLOOD SUGAR 4 TIMES DAILY 400 strip 1 07/07/20 24 Active baclofen (Lioresal) 10 MG tablet Take 10 mg by mouth in the morning and 10 mg in the evening and 10 mg before bedtime. 06/24/20 24 Active naloxone (Narcan) 4 mg/0.1 mL nasal spray Administer 4 mg into affected nostril(s) if needed 07/04/20 24 Active nicotine (Nicoderm, Step 1) 21 MG/24HR patchIndications:E ncounter for smoking cessation counseling Place 1 patch over 24 hours on the skin 1 (one) time each day at the same time May either leave patch on 24 hours, or apply in the morning and take of at bedtime, rotate sites 30 patch 1 07/14/19 25 Active Lantus SoloStar 100 UNIT/ML pen 08/26/19 25 Active pregabalin (Lyrica) 150 MG capsule Take 150 mg by mouth Daily 08/13/19 25 Active ammonium lactate (Lac-Hydrin) 12 % lotion APPLY TO BILATERAL FEET EVERY DAY 07/22/19 25 Active simvastatin (Zocor) 10 MG tabletIndications: Hyperlipidemia, unspecified (CMS/HCC) Take 1 tablet (10 mg) by mouth at bedtime 90 tablet 1 08/27/19 25 Active varenicline (Chantix) 1 MG tabletIndications: Tobacco user,Encounter for smoking cessation counseling Take 1 tablet (1 mg) by mouth in the morning and 1 tablet (1 mg) before bedtime. Take with full glass of water.. 60 tablet 1 08/27/19 25 Active fluconazole (Diflucan) 150 MG tabletIndications: Antibiotic-induced yeast infection One time dose, repeat in 3 days . Do not take cholesterol pill while taking this medication. Once finished then resume 2 tablet 1 08/27/19 25 Active Roflumilast 500 MCG tabletIndications: Chronic obstructive pulmonary disease, unspecified Take 1 tablet by mouth Daily 90 tablet 1 10/22/19 25 025 Active HySept 0.25 % external solution APPLY TO GAUZE AND PLACE ON RIGHT LOWER LEG ULCERS, CHANGE DAILY 09/25/19 25 Active amitriptyline (Elavil) 25 MG tabletIndications: Insomnia Take 1 tablet (25 mg) by mouth at bedtime 90 tablet 1 10/28/19 025 Active aspirin 81 MG chewable tabletIndications: Type 2 diabetes mellitus with complication, with long-term current use of insulin (CMS/HCC) Chew 1 tablet (81 mg) Daily 90 tablet 3 10/28/19 025 Active cetirizine (ZyrTEC) 10 MG tabletIndications: Non-seasonal allergic rhinitis, unspecified trigger Take 1 tablet (10 mg) by mouth Daily 90 tablet 1 10/28/19 25 025 Active dapagliflozin (Farxiga) 10 MGIndications:Type 2 diabetes mellitus with unspecified complications Take 1 tablet (10 mg) by mouth Daily 90 tablet 1 10/28/19 025 Active DULoxetine (Cymbalta) [address] capsuleIndications :Anxiety and depression (CMS/HCC) Take 1 capsule (60 mg) by mouth in the morning and 1 capsule (60 mg) before bedtime. Do not crush or chew. 180 capsule 1 10/28/19 025 Active ergocalciferol (Vitamin D2) 1.25 MG (63132 UT) capsuleIndications :Vitamin D deficiency, unspecified Take 1 capsule (1.25 mg) by mouth 2 (two) times a week 24 capsule 1 10/28/19 025 Active hydrALAZINE (Apresoline) 25 MG tabletIndications: Primary hypertension (CMS/HCC) Take 1 tablet (25 mg) by mouth in the morning and 1 tablet (25 mg) before bedtime. 180 tablet 1 10/28/19 25 025 Active lisinopril 20 MG tabletIndications: Primary hypertension (CMS/HCC) Take 1 tablet (20 mg) by mouth Daily 90 tablet 1 10/28/19 25 025 Active omeprazole (PriLOSEC) [address] capsuleIndications :Gastro-esophageal reflux disease without esophagitis Take 1 capsule (20 mg) by mouth in the morning. Take before meals. 90 capsule 1 10/28/19 25 025 Active furosemide (Lasix) 20 MG tabletIndications: Bilateral lower extremity edema Take 1 tablet (20 mg) by mouth Daily as needed (edema) Take in the afternoon as needed 90 tablet 1 10/28/19 25 025 Active potassium chloride ER (Micro-K) 10 MEQ ER capsuleIndications :Bilateral lower extremity edema Take 1 capsule (10 mEq) by mouth Daily Take 1 capsule (10 mEq) by mouth in the morning. 90 capsule 1 10/28/19 025 Active furosemide (Lasix) 40 MG tabletIndications: Bilateral lower extremity edema Take 1 tablet (40 mg) by mouth Daily 90 tablet 1 10/28/19 25 025 Active amoxicillin-clavul anate (Augmentin) 875-125 MG tablet Take 1 tablet by mouth every 12 (twelve) hours 12/06/19 25 Active predniSONE (Deltasone) 10 MG tablet 4 TABS X3 DAYS, 3TABS X3 DAYS, 2 TABS X3 DAYS, 1 TAB X3 DAYS, 1/2 TAB X4 DAYS 12/06/19 25 Active Active Problems Problem Noted Date Diagnosed Date Stasis dermatitis with ulcer of right lower extremity due to peripheral venous hypertension 12/09/2024 Fever 12/09/2024 Assessment & Plan (12/09/2024 7:26 AM EDT): Tylenol prn fever Finish atb's Cellulitis of left lower extremity 12/09/2024 Assessment & Plan (12/09/2024 11:27 AM EDT): Finish atbs Keep appt with wound care A febrile Will call me if worsening in sxs Cigarette nicotine dependence without complicati on 10/27/2024 Assessment & Plan (10/27/2024 2:40 PM EDT): Is currently using chantix, and is doing well, less desire, smoking less Vitamin D deficiency, unspecified 10/27/2024 Gastro-esophageal reflux disease without esophag itis 10/27/2024 Morbid (severe) obesity due to excess calories 0 08/27/2024 Assessment & Plan (12/09/2024 7:24 AM EDT): Discussed with patient their BMI (actual, verses [...] loss. Is currently taking mounjaro for DM Assessment & Plan (10/27/2024 7:07 AM EDT): Discussed with patient their BMI (actual, verses [...] loss. 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 08/27/2024 Assessment & Plan (08/27/2024 7:32 AM EST): Follows with wound, legs are wrapped, 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 as possible senior care current use of inhaled steroid 025 Non-pressure chronic ulcer o f other part of left lower leg limited to breakdown of skin 08/27/2024 Vitamin deficiency 08/27/2024 Antibiotic-induced yeast infection 08/27/2024 Chronic diastolic heart failure 08/08/2024 Assessment & Plan (10/27/2024 7:07 AM EDT): Current meds; asa, farxiga, lasix, hydralazine, lisinopril, Follows with cardilogy Reviewed 08/02 notes Assessment & Plan (08/27/2024 7:32 AM EST): Current meds; asa, farxiga, lasix, hydralazine, lisinopril, Follows with cardilogy Reviewed 08/02 notes Myelolipoma of adrenal gland 07/14/2024 Encounter for smoking cessation counseling 07/14 Critical limb ischemia of right lower extremity 06/19/2024 Assessment & Plan (07/14/2024 7:32 PM EST): Saw vascular, does have narrowing in arteries in legs, and thus the wounds not healing At this point they strongly urge to quit smoking or risk limb amputation Cont asa and statin Also good blood pressure and sugar control Mild nonproliferative diabet ic retinopathy of both eyes without macular edema associated with type 2 diabetes mellitus 05/13/2024 Overview (05/13/2024): Eye exam 05/13/24 Hyperpigmentation of skin 04/14/2024 Assessment & Plan (04/14/2024 11:45 AM EDT): Will try cerevue ointment to see if helps Encounter for subsequent [facility] (AWV) in Medicare patient 01/17/2024 Assessment & Plan (01/17/2024 12:35 PM EDT): I have reviewed Ht/Wt/BMI, I have reviewed recommended vaccines for patient's age, as well as all recommended screenings I have reviewed available care everywhere notes as well. I have recommended eating a balanced diet, as well as activity as chronic conditions allow It is recommended that the patient have a yearly eye exam, as well as twice a year dental exams Fu in this office for wellness on a yearly basis Other headache syndrome 01/17/2024 Assessment & Plan (01/17/2024 12:40 PM EDT): No hx of Migraines, however tylenol/motrin do not help and pt has gotten some relief from Excedrin migraine med Reports some sinus/uri last week. Does have left OM, will treat for this and if not better can try ubrelvy #3 samples given: Lot [id number], exp 03/2025 Mixed incontinence 11/14/2023 Arthritis 11/14/2023 Encounter for screening mamm ogram for malignant neoplasm of breast 11/01/2023 Non-seasonal allergic rhinitis 11/01/2023 Candidiasis of breast 11/01/2023 Assessment & Plan (11/01/2023 11:21 AM EDT): Skin care, Insomnia 09/17/2023 Radiculopathy, lumbar region 09/17/2023 Assessment & Plan (07/14/2024 7:36 PM EST): Lumbar MRI with pain mgmt, needs surgery, however needs to quit smoking as well as beet DM control Pain Mgmt wondered about increase lyrica to 300mg TID I am not aware that the dose can increase to TID for total of 900mg daily I will reach out to Pain Mgmt about if they feel this is necessary they take over prescribing Pancreatitis 09/17/2023 COPD exacerbation 09/17/2023 Assessment & Plan (12/09/2024 11:26 AM EDT): Recent ER visit for unresponsiveness , found to have fever and elevated WBC Sent home with steroids and atb Breathing is better and she feels back to her normal baseline Does have home O2, she is not wearing this today Assessment & Plan (11/15/2023 3:48 PM EDT): Appears to be improved Is going to start daliresp, fu in 2 months Keep pulmonary Assessment & Plan (11/01/2023 11:16 AM EDT): 5 days steroids, and atb Will also add daliresp to see if can cut down on exacerbations Not wearing oxygen in office with standing for weight and getting into room O2sat 76%, after resting up to 88-90%. Resp are even and non labored and no cyanosis noted Venous insufficiency 09/17/2023 Assessment & Plan (11/01/2023 11:17 AM EDT): Open wounds refer to [facility] Wound Care Pulmonary hypertension 09/17/2023 Assessment & Plan (12/09/2024 7:23 AM EDT): Has seen [facility] Cardiology Assessment & Plan (11/15/2023 3:49 PM EDT): Saw [facility] Cardiology See notes Going to see Pulmonary Assessment & Plan (09/27/2023 1:03 PM EDT): Needs to wear her PAP I am also going to have her see [facility] Cardiology as well PAD (peripheral artery disease) 09/17/2023 Assessment & Plan (10/27/2024 2:38 PM EDT): Asa, statin Quit smoking BP and DM control Assessment & Plan (07/14/2024 7:32 PM EST): Asa, statin Quit smoking BP and DM control GERD (gastroesophageal reflux disease) Assessment & Plan (10/27/2024 2:38 PM EDT): Recommendations: freq small meals, nothing to eat or drink at least 2 hours prior to bed, limit caffeine, alcohol, as well as spicy foods Meds to limit or avoid if possible: NSAIDS Elevate HOB if possible Current med: PPI Assessment & Plan (08/27/2024 7:32 AM EST): Recommendations: freq small meals, nothing to eat or drink at least 2 hours prior to bed, limit caffeine, alcohol, as well as spicy foods Meds to limit or avoid if possible: NSAIDS Elevate HOB if possible Current med: PPI Assessment & Plan (07/14/2024 8:20 AM EST): Recommendations: freq small meals, nothing to eat or drink at least 2 hours prior to bed, limit caffeine, alcohol, as well as spicy foods Meds to limit or avoid if possible: NSAIDS Elevate HOB if possible Current med: PPI Malignant neoplasm of cervix uteri, unspecified 09/17/2023 Assessment & Plan (08/27/2024 7:33 AM EST): Had in the past, had hysterectomy Albuminuria 09/17/2023 Unilateral primary osteoarthritis, right hip 05/2024 Chronic pain of both knees 09/17/2023 Hyperlipidemia 09/17/2023 Assessment & Plan (08/27/2024 7:36 AM EST): On statin therapy Check labs yearly and prn dose changes Decreased functional mobility 09/17/2023 Adrenal mass 1 cm to 4 cm in diameter 09/17/2023 Assessment & Plan (07/14/2024 7:33 PM EST): Continue with Urology Kidney stone 09/17/2023 Assessment & Plan (07/14/2024 7:32 PM EST): Continue with Urology Proteinuria 09/17/2023 Vaginal yeast infection 08/17/2023 Obstructive sleep apnea 07/10/2023 Assessment & Plan (08/27/2024 7:29 AM EST): You have a diagnosis of obstructive sleep [...] with them so she can do this Assessment & Plan (09/27/2023 1:02 PM EDT): DME needs to send her a new mask for her machine, I have emphasized the importance of getting in touch with them so she can do this Assessment & Plan (07/10/2023 11:58 AM EST): Non compliant d/t unable to tolerate mask Will continue to reach out to DME for help Diabetic neuropathy 07/10/2023 Assessment & Plan (10/27/2024 2:37 PM EDT): Continue with cintia hudson mgmt is prescribing OARRS reviewed Fu in 3 months Goal: tighter glucose control, this has been improving, latest A1c is 7.4%!!! Assessment & Plan (08/27/2024 6:06 PM EST): Continue with cintia hudson mgmt is prescribing OARRS reviewed Fu in 3 months Goal: tighter glucose control Assessment & Plan (07/14/2024 8:18 AM EST): Continue with lyrica OARRS reviewed Fu in 3 months Assessment & Plan (04/14/2024 11:41 AM EDT): Continue with lyrica OARRS reviewed Fu in 3 months COPD (chronic obstructive pulmonary disease) 08/2023 Assessment & Plan (10/27/2024 7:06 AM EDT): Follows with samsa Needs smoking cessation Current meds: duoneb, albuterol, daliresp, Assessment & Plan (08/27/2024 7:31 AM EST): Follows with samsa Needs smoking cessation Current meds: duoneb, albuterol, daliresp, Assessment & Plan (07/14/2024 8:19 AM EST): Stable at this time, no changes in meds Encouraged smoking cessation Cont with dr Yañez Assessment & Plan (04/14/2024 11:42 AM EDT): Stable at this time, no changes in meds Encouraged smoking cessation Cont with dr Yañez Assessment & Plan (01/17/2024 12:36 PM EDT): Doing well at this time, no changes in meds She is again trying chantix for smoking cessation Cont with dr Yañez Assessment & Plan (11/01/2023 11:17 AM EDT): Will have her stop symbicort and spiriva Will trial breztri: #2 samples given [id number], exp 03/03, rinse mouth after use Give duoneb in am and then 2 inhalations for breztri, repeat at night as well Fu in 2 weeks for a recheck Assessment & Plan (09/27/2023 1:02 PM EDT): Needs to quit smoking Will also refer to Pulmonology as well Assessment & Plan (07/10/2023 11:58 AM EST): Stable at this time no changes in inhalers Recommend quitting smoking Asthma 07/10/2023 Assessment & Plan (08/27/2024 7:30 AM EST): Current meds: albuterol, duoneb, Has supervisor pairing and inspecting 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 Assessment & Plan (01/17/2024 12:36 PM EDT): Cont w inhalers, pulmonology Quit smoking Hypertension 07/10/2023 Assessment & Plan (12/09/2024 7:23 AM EDT): Please check blood pressure daily and record DASH diet Limit caffeine Take medication as directed Contact office if chest pain, pressure, dizziness, shortness of breath, swelling legs Recommend slow position changes Current meds: hydralazine, lisinopril, Assessment & Plan (10/27/2024 7:07 AM EDT): Please check blood pressure daily and record DASH diet Limit caffeine Take medication as directed Contact office if chest pain, pressure, dizziness, shortness of breath, swelling legs Recommend slow position changes Current meds: hydralazine, lisinopril, Assessment & Plan (08/27/2024 7:32 AM EST): Please check blood pressure daily and record DASH diet Limit caffeine Take medication as directed Contact office if chest pain, pressure, dizziness, shortness of breath, swelling legs Recommend slow position changes Current meds: hydralazine, lisinopril, Assessment & Plan (07/14/2024 8:19 AM EST): Please check blood pressure daily and record DASH diet Limit caffeine Take medication as directed Contact office if chest pain, pressure, dizziness, shortness of breath, swelling legs Recommend slow position changes Current meds: hydralazine, lisinopril, Assessment & Plan (04/14/2024 11:42 AM EDT): Stable on current meds Refill meds Assessment & Plan (01/17/2024 12:37 PM EDT): Stable, no med changes Assessment & Plan (11/01/2023 11:18 AM EDT): No changes today in meds Assessment & Plan (09/27/2023 1:03 PM EDT): Has not been taking her hydralazine from hospital, lost script I did contact [facility] in [place], they will get another fill on this and have ready for patient Fu in 4 weeks Assessment & Plan (07/10/2023 11:59 AM EST): Stable on current dose of meds Type 2 diabetes mellitus wit h complication, with long-term current use of insulin 07/10/2023 Assessment & Plan (12/09/2024 11:26 AM EDT): Check blood sugars daily, notify if <70 [...] Sugars are elevated, secondary to her steroids Assessment & Plan (10/27/2024 7:08 AM EDT): Check blood sugars daily, notify if <70 [...] Most recent A1c is 7.2% on 10/08/2024 Assessment & Plan (08/27/2024 7:35 AM EST): Check blood sugars daily, notify if <70 [...] Most recent A1c is 9.2% on 05/27/24 Assessment & Plan (07/14/2024 7:33 PM EST): Check blood sugars daily, notify if <70 [...] Most recent A1c is 9.2% on 05/27/24 Assessment & Plan (04/14/2024 11:43 AM EDT): Check blood sugars daily, follow w Endo. [...] for mgmt, and recommend diabetic eye exam Assessment & Plan (01/17/2024 12:37 PM EDT): Check blood sugars daily, follow w Endo. [...] diet low in carbohydrates, and simple sugars. Assessment & Plan (11/01/2023 11:18 AM EDT): Continue with [facility] for management Assessment & Plan (07/10/2023 12:45 PM EST): Continue with dr odonnell for management of diabetes Anxiety and depression 07/10/2023 Assessment & Plan (12/09/2024 7:24 AM EDT): Current meds: elavil, duloxtine, Assessment & Plan (10/27/2024 7:09 AM EDT): Current meds: elavil, duloxtine, Assessment & Plan (08/27/2024 7:03 PM EST): Current meds: elavil, duloxtine, PHQ 9= 5 IRENE 7=3 Current meds: TCA, and duloxetine Bilateral lower extremity edema 07/10/2023 Assessment & Plan (10/27/2024 7:07 AM EDT): Limit sodium , elevate legs, furosemide Assessment & Plan (08/27/2024 7:34 AM EST): Limit sodium , elevate legs, furosemide Assessment & Plan (07/14/2024 8:21 AM EST): Stable on current meds Assessment & Plan (04/14/2024 11:42 AM EDT): Stable on current meds Assessment & Plan (07/10/2023 11:59 AM EST): Continue w pamlea, discussed skin care regimines as well RAGHU positive 09/16/2020 Cardiomegaly 10/25/2017 Overview (09/17/2023): borderline Gout 10/25/2017 Resolved Problems Problem Noted Date Diagnosed Date Resolved Date Venous ulcer of right leg 06/19/2024 Assessment & Plan (10/27/2024 2:39 PM EDT): Continue with wound care and management of wound, currently they are using dakins Wound is improving Assessment & Plan (08/27/2024 7:08 PM EST): Continue with wound for treatment Had recent med added Discussed need for tight glucose control as well as QUITTING SMOKING Failure to do so can result in amputation Non-recurrent acute suppurat leobardo otitis media of left ear without spontaneous rupture of tympanic membrane 01/17/2024 07/14/2024 Class 3 severe obesity with serious comorbidity and body mass index (BMI) of 50.0 to 59.9 in adult 09/27/2023 04/14/2024 Pneumonia 09/17/2023 10/27/2024 Lower extremity edema 09/17/20232023 Tobacco user 09/17/2023 10/27/2024 Assessment & Plan (08/27/2024 7:36 AM EST): The patient has been advised of the [...] this process Willing to trial nicotine patches Assessment & Plan (07/14/2024 7:34 PM EST): The patient has been advised of the [...] this process Willing to trial nicotine patches Assessment & Plan (04/14/2024 11:43 AM EDT): Urged to quit Assessment & Plan (09/27/2023 1:04 PM EDT): Urged to quit Edema 07/10/2023 07/10/2023 Class 3 severe obesity with serious comorbidity and body mass index (BMI) of 60.0 to 69.9 in adult 07/10/2023 09/27/2023 Abdominal pannus 10/25/2017 08/27/2024 Encounters Date Type Department Care Team Description 12/09/2024 10:00 AM EDT Office Visit [facility] [address] [place] [address] Mckayla Blas NP Cellulitis of left lower extremity (Primary Dx); COPD exacerbation (CMS/HCC); Primary hypertension (CMS/HCC); Pulmonary hypertension (CMS/HCC); Morbid (severe) obesity due to excess calories ([facility]/HCC); Type 2 diabetes mellitus with complication, with long-term current use of insulin ([facility]/HCC); Anxiety and depression ([facility]/HCC); Fever, unspecified fever cause 12/09/2024 Bamboo flowsheet [facility] [address] [place] [address] Mckayla Blas NP 12/08/2024 Travel 12/04/2024 Clinisync Result Encounter [facility] External Department Unsolicited Provider, Generic External Data 10/29/2024 Refill [facility] [address] [place] [address] Mckayla Blas NP Tobacco user; Encounter for smoking cessation counseling 10/27/2024 2:00 PM EDT Office Visit [facility] [address] [place] [address] Mckayla Blas NP Primary hypertension ([facility]/HCC) (Primary Dx); Diabetic polyneuropathy associated with type 2 diabetes mellitus ([facility]/HCC); Chronic diastolic heart failure ([facility]/HCC); Bilateral lower extremity edema; Morbid (severe) obesity due to excess calories ([facility]); Type 2 diabetes mellitus with complication, with long-term current use of insulin ([facility]); Anxiety and depression ([facility]/HCC); Cigarette nicotine dependence without complication; Encounter for screening mammogram for malignant neoplasm of breast; Insomnia; Non-seasonal allergic rhinitis, unspecified trigger; Type 2 diabetes mellitus with unspecified complications; Vitamin D deficiency, unspecified; Gastro-esophageal reflux disease without esophagitis; PAD (peripheral artery disease) ([facility]/HCC); Gastroesophageal reflux disease, unspecified whether esophagitis present; Venous ulcer of right leg ([facility]/HCC) 10/27/2024 Refill [facility] [address] [place] [address] Mckayla Blas NP 10/21/2024 Refill [facility] [address] [place] [phone] Mckayla Blas NP Chronic obstructive pulmonary disease, unspecified 10/08/2024 11:20 AM EDT Office Visit [facility] [address] [place] [address] Rain Odonnell MD Type 2 diabetes mellitus with hyperglycemia, with long-term current use of insulin ([facility] [place]) (Primary Dx); Encounter for dietary consultation; Vitamin D deficiency; Primary hypertension ([facility]); Insulin long-term use ([facility]); Hyperlipemia, mixed ([facility]); Microalbuminuria; Class 3 severe obesity due to excess calories with serious comorbidity and body mass index (BMI) of 50.0 to 59.9 in adult 10/08/2024 Clinisync Result Encounter [facility] External Department Unsolicited Mckayla Blas NP 10/01/2024 Telephone [facility] [address] [place] [address] Mckayla Blas NP 09/21/2024 Refill [facility] [address] [place] [address] Mckayla Blas NP Bilateral lower extremity edema from Last 3 Months Immunizations Immunization Administration Dates Next Due Influenza Whole 05/02/2013 Influenza, [id number] 04/16/2017,05/10/2016 Influenza, Unspecified 05/18/2023,04/16/2017,08/2015 Influenza, injectable, quadrivalent 05/18/2023,1 MMR 01/29/1998 Pneumococcal Polysaccharide PPSV23 04/16/2017 Family History Medical History Relation Name Comments No Known Problems Father Varicose veins Father's Sister Mental illness Other Family history Cancer Paternal Grandfather Cancer Paternal Grandmother Hypertension Paternal Grandmother Relation Name Status Comments Brother Alive Father Father's Sister Mother Other Family history Paternal Grandfather Paternal Grandmother Sister 1 Alive Sister 2 Alive Sister 3 Social History Tobacco Use Types Packs/Day Years Used Date Smoking Tobacco: Every Day Cigarettes Smokeless Tobacco: Never Tobacco Cessation:Ready to Q uit: No; Counseling Given: Yes Alcohol Use Standard Drinks/Week Comments Never 0 [...] week 08/26/2024 How often do you attend chur ch or mormonism services? More than 4 times per year 08/26/2024 Do you belong to any clubs o r organizations such as latter-day groups, unions, fraternal or athletic groups, or [...] Patient Health Questionnaire-2 Score 1 01/17/2024 [facility] - Occupational [...] place to sleep or slept in a senior living (including now)? No 07/10/2023 Housing Stability Vital Sign Answer Wilmer e Recorded In the last 12 months, was t here a time when you were not able to pay the mortgage or rent on time? No 08/26/2024 Number of Times Moved in the Last Year Not on fi le 08/26/2024 At any time in the past 12 m ont, were you homeless or living in a senior living (including now)? No 08/26/2024 Comments Unknown Sex [...] EDT Inhaled Oxygen Concentration - - Weight 164 kg (360 lb 12.8 oz) 10/27/2024 2:11 P M EDT Height 170.2 cm (5' 7 ) 10/27/2024 2:11 PM EDT Body Mass Index 56.51 10/27/2024 2:11 PM EDT Plan of Treatment Upcoming Encounters Date Type Department Care Team (Late st Contact Info) Description 01/26/2025 6:00 PM EDT Office Visit [facility] [address] [place] [address] Mckayla Blas NP [address] [place] [address] 01/28/2025 10:50 AM EDT Office Visit [facility] [address] [place] [address] Rain Odonnell MD [address] [place] [address] Health Maintenance Due Date Last Done Comments CT Colonography 1970 Colonoscopy 1970 FIT 1970 FOBT 1970 Sigmoidoscopy 1970 HPV/Cotest 2000 Pap Smear 10/07/2018 10/08/2015, 10/08/2015 Mammogram 12/13/2024 12/14/2023, 06/0 01/2024, 11/22/2022 Diabetes: Hemoglobin A1C 01/07/2025 025, 05/27/2024, 02/15/2024, Additional history exists Medicare Annual Wellness (AWV) 01/16/2025 01/17/2024 , 01/17/2024 Influenza Vaccine (Season Ended) 2025 05/18/2023, 05/18/2023, 04/16/2017, Additional history exists Diabetes: Retinopathy Screening 07/14/2025 07/14/2024, 05/13/2024, 05/27/2019 Colorectal Cancer Screening 08/03/2025 FIT-DNA 08/03/2025 08/03/2022 Diabetes: Urine Protein Screening 10/08/2025 025, 11/23/2022 Cervical Cancer Screening Discontinued Procedures Procedure Name Priority Date/Time Associated Diagnosis Comments BLOOD CULTURE 2 Routine 12/04/2024 5:28 PM EDT BLOOD CULTURE 1 Routine 12/04/2024 4:44 PM EDT POCT GLYCOSYLATED HEMOGLOBIN (HGB A1C) Routine 10/08/2024 11:25 AM EDT Type 2 diabetes mellitus with hyperglycemia, with long-term current use of insulin ([facility]) POCT GLUCOSE Routine 10/08/2024 11:25 AM EDT Type 2 diabetes mellitus with hyperglycemia, with long-term current use of insulin ([facility]) TBH VITAMIN D 25 [place] Routine 10/08/2024 9 :55 AM EDT ALL LIPID PROFILE (FASTING) Routine 10/08/2024 9:55 AM EDT ALL URIC ACID Routine 10/08/2024 9:55 AM EDT HMHP LIVER PANEL Routine 10/08/2024 9:55 AM EDT ALL BASIC METABOLIC PANEL Routine 10/08/2024 9:55 AM EDT TBH MICROALB CREAT RATIO RANDOM Routine 10/08/2024 9:43 AM EDT TBH URINE MICROSCOPIC ONLY Routine 10/08/2024 9:43 AM EDT TBH UA (CLEAN/CATCH) MICROSCOPIC IF INDICATE Routine 10/08/2024 9:43 AM EDT DIABETIC RETINOPATHY SCREENING - OU - BOTH EYES Routine 07/14/2024 3:09 PM EST MM TOMOSYNTHESIS SCREENING BI 12/14/2023 11:21 AM EDT from Last 3 Months or Most Recently Relevant to Health Maintenance Results * POCT glycosylated hemoglobin (Hb A1C) docked device (10/08/2024 11:25 AM EDT) Hemoglobin A1C 7.4 Blood Venous blood specimen / Unknown 10/08/2024 11:25 AM EDT Rain Odonnell MD POINT OF CARE TEST ENTER/EDIT ORDERABLES Final Result * POCT glucose manually resulted (10/08/2024 11:25 AM EDT) Glucose Blood, POC 97 mg/dL Blood Capillary blood specimen / Unknown 10/08/2024 11:25 AM EDT us Rain Odonnell MD POINT OF CARE TEST ENTER/EDIT ORDERABLES Final Result * TBH VITAMIN D 25 [place] (10/08/2024 9:55 AM EDT) VITAMIN D 8.3 ng/mL TB Comment: <20 ng/mL Vit D deficient 20-<30 ng/mL Vit D insufficient 30-100 ng/mL Vit D sufficient >100 ng/mL Potential Toxicity 10/08/2024 9:55 AM EDT 10/08/2024 9:56 AM EDT Narrative CLINISYNC - 10/08/2024 11:39 AM EDT us Mckayla Blas NP CLINISYNC Final Result Performing Organization Address [facility] Co de Phone Number CLINISYNC TB * (ABNORMAL) [facility] LIVER PANEL (10/08/2024 9:55 AM EDT) BILIRUBIN TOTAL 0.4 0.2 - 1.0 mg/dL TBH BILIRUBIN DIRECT 0.1 0.0 - 0.2 mg/dL TBH ASPARTATE AMINO TRANSFERASE 14(L) 15 - 37 U/L TBH ALANINE AMINOTRANSFERASE 11(L) 14 - 59 U/L TBH ALKALINE PHOSPHATASE 68 46 - 116 U/L TBH TOTAL PROTEIN 7.6 6.4 - 8.2 g/dL TBH ALBUMIN LEVEL 3.0(L) 3.4 - 5.0 g/dL TBH GLOBULIN 4.6 g/dL TBH ALBUMIN GLOBULIN RATIO 0.7 TBH 10/08/2024 9:55 AM EDT 10/08/2024 9:56 AM EDT Narrative CLINISYNC - 10/08/2024 11:24 AM EDT Mckayla Blas NP CLINISYNC Final Result Performing Organization Address [facility] Co de Phone Number CLINISYNC TB * (ABNORMAL) ALL URIC ACID (10/08/2024 9:55 AM EDT) URIC ACID 6.2(H) 2.6 - 6.0 mg/dL TBH 10/08/2024 9:55 AM EDT 10/08/2024 9:56 AM EDT Narrative CLINISYNC - 10/08/2024 11:24 AM EDT Mckayla Blas NP CLINISYNC Final Result Performing Organization Address [facility] de Phone Number CLINISYNC TBH * (ABNORMAL) ALL LIPID PROFILE (FASTING) (10/08/2024 9:55 AM EDT) TRIGLYCERIDES 127 <=150 mg/dL TBH CHOLESTEROL 118 <=200 mg/dL TBH HDL CHOLESTEROL 36(L) 40 - 60 mg/dL TBH Comment: > or =60 mg/dl - LOW CARDIOVASCULAR RISK <40 mg/dl - HIGH CARDIOVASCULAR RISK LDL CHOLESTEROL CALCULATED 57.0 mg/dL TB Comment: <100 mg/dl OPTIMAL 100-129 mg/dl NEAR OR ABOVE OPTIMAL 130-159 mg/dl BORDERLINE HIGH 160-189 mg/dl HIGH >190 mg/dl VERY HIGH VLDL CHOLESTEROL 25.4 mg/dL TB CHOL HDL RATIO 3.3 TBH Comment: 3.3 - 4.4 LOW RISK 4.4 - 7.1 AVERAGE RISK 7.1 - 11.0 MODERATE RISK >11.0 HIGH RISK 10/08/2024 9:55 AM EDT 10/08/2024 9:56 AM EDT Narrative CLINISYNC - 10/08/2024 11:24 AM EDT us Mckayla Blas NP CLINISYNC Final Result Performing Organization Address [facility] de Phone Number CLINISYNC TB * (ABNORMAL) ALL BASIC METABOLIC PANEL (10/08/2024 9:55 AM EDT) SODIUM 144 136 - 145 mmol/L TBH POTASSIUM 4.3 3.5 - 5.1 mmol/L TBH CHLORIDE 105 98 - 107 mmol/L TBH CARBON DIOXIDE 31.8 21.0 - 32.0 mmol/L TBH ANION GAP 11.5 TBH GLUCOSE 65(L) 74 - 106 mg/dL TBH BLOOD UREA NITROGEN 25.0(H) 7.0 - 18.0 mg/dL TBH CREATININE 0.89 0.55 - 1.02 mg/dL TBH TBH EGFR-AF VIETNAMESE >60 >=60 mL/min/1.7 3m 2 TBH TBH EGFR-NON AF VIETNAMESE >60 >=60 mL/min/1.7 3m 2 TBH BUN CREATININE RATIO 28.1 TBH CALCIUM 9.1 8.5 - 10.1 mg/dL TBH 10/08/2024 9:55 AM EDT 10/08/2024 9:56 AM EDT Narrative CLINISYNC - 10/08/2024 11:06 AM EDT Generic External Data Provider CLINISYNC F inal Result Performing Organization Address [facility] de Phone Number CLINISYNC TBH * (ABNORMAL) TBH URINE MICROSCOPIC ONLY (10/08/2024 9:43 AM EDT) TBH WBC 0-2(A) NONE SEEN #/HPF TBH TBH RBC 0-2 0 - 2 #/HPF TBH BACTERIA URINE TRACE(A) NONE SEEN #/HPF TBH MUCUS URINE NONE SEEN NONE SEEN TBH SQUAMOUS EPITHELIAL CELL URINE MODERATE(A ) NONE/RARE #/LPF TBH CRYSTALS SEEN? None Seen None Seen #/HPF TBH CAST SEEN? NONE SEEN NONE SEEN #/LPF TBH URINE CULTURE INDICATED NO TBH 10/08/2024 9:43 AM EDT 10/08/2024 9:56 AM EDT Narrative CLINISYNC - 10/08/2024 10:43 AM EDT Mckayla Blas NP CLINISYNC Final Result Performing Organization Address [facility] de Phone Number CLINISYNC TBH * (ABNORMAL) TBH UA (CLEAN/CATCH) MICROSCOPIC IF INDICATE (10/08/2024 9:43 AM EDT) COLOR URINE YELLOW YELLOW TBH CLARITY URINE CLEAR CLEAR TBH SPECIFIC GRAVITY URINE >=1.030(A) 1.005 - 1.025 TBH PH URINE 5.5 5.0 - 9.0 TBH PROTEIN URINE 30(A) NEG/TRACE mg/dL TBH GLUCOSE URINE UA NEGATIVE NEGATIVE mg/dL TBH BILIRUBIN URINE NEGATIVE NEGATIVE TBH KETONES URINE NEGATIVE NEGATIVE mg/dL TBH BLOOD URINE NEGATIVE NEGATIVE TBH NITRITE URINE NEGATIVE NEGATIVE TBH UROBILINOGEN URINE 1.0 0.2 - 1.0 EU/dL TBH LEUKOCYTE ESTERASE URINE NEGATIVE NEGATIVE TBH URINE MICROSCOPIC INDICATED YES TBH 10/08/2024 9:43 AM EDT 10/08/2024 9:56 AM EDT Narrative CLINISYNC - 10/08/2024 10:43 AM EDT Mckayla Blas NP CLINISYNC Final Result Performing Organization Address [facility] Co de Phone Number [facility] * (ABNORMAL) TBH MICROALB CREAT RATIO RANDOM (10/08/2024 9:43 AM EDT) MICROALBUMIN URINE RANDOM 67.2(H) <=30.0 mg/dL TBH CREATININE URINE RANDOM 190.98 20.00 - 300.00 mg/dL TBH MICROALBUM CREATININE RATIO UR 351.8(H) 0.0 - 29.9 mg/g TBH Comment: NO MICROALBUMINURIA 0-29 MG/G CLINICAL MICROALBUMINURIA 30-300 MG/G MACROALBUMINURIA >300 MG/G 10/08/2024 9:43 AM EDT 10/08/2024 9:56 AM EDT Narrative CLINISYNC - 10/08/2024 11:06 AM EDT Mckayla Blas NP CLINISYNC Final Result Performing Organization Address [facility] Co de Phone Number [facility] * Diabetic Retinopathy Screening - OU - Both Eyes (07/14/2024 3:09 PM EST) Anatomical Region Laterality Modality Head Other Mckayla Blas NP OPHTH PHOTOGRAPHY Final Result * MM TOMOSYNTHESIS SCREENING BI (12/14/2023 11:21 AM EDT) Anatomical Region Laterality Modality Other 12/14/2023 11:2 1 AM EDT Narrative 12/14/2023 11:22 [place] [address] Mammography Report Signed Patient: SINA MACIAS MR#: [id number] : 1970 Acct:[id number] Age/Sex: 53 / F ADM Date: 12/13/23 Loc: MAMMO Attending Dr: Mckayla Blas NP Ordering Physician: Mckayla Blas NP Results: Date of Service: 12/13/23 Follow Up: Procedure(s): MM tomosynthesis screening BI Accession Number(s): [id number] cc: Mckayla Blas NP Patient Name: SINA MACIAS MR#: [id number] : 1970 Exam Date: 12/13/2023 Ordering Doctor: SAYDA Blas CNP RADIOLOGY REPORT PROCEDURE: MM TOMOSYNTHESIS SCREENING BI COMPARISON: MG MAMM SCREEN 3D ALEX CAD, 11/22/2022. MG MAMM SCREEN 3D ALEX CAD, 10/25/2021. MG MAMM SCREEN ALEX W CAD, 08/06/2020. MG MAMM ALEX SCRN W CAD DIG, 11/06/2014. INDICATIONS: Screening Calculator Name NCI Breast Cancer Risk Assessment Tool 5 Year Breast Cancer Risk 0.70% Lifetime Breast Cancer Risk 5.70% Personal Breast Cancer No Personal Ovarian Cancer No Treatments None Family Cancers Grandmother-paternal with ovarian cancer at age 80; Grandfather-paternal with unknown cancer at age 75. LOCATION: [facility] BREAST COMPOSITION: The breasts are almost entirely fatty. FINDINGS: DIAGNOSTIC CATEGORY 2--BENIGN FINDING: [...] PALPABLE LUMP SHOULD BE BIOPSIED. Dictated by: Noel Ivan M.D. on 12/14/2023 at 11:18 Approved by: Noel Ivan M.D. on 12/14/2023 at 11:21 Dictated By: Noel Ivan M.D. Signed By: 12/14/23 1122 DD/ 1121 TD/TT: Supplier Quality Engineer: Procedure Note Radiology, Radiologist, MD - 12/14/2023 [place] [address] Mammography Report Signed Patient: SINA MACIAS LMR#: [id number] : 1970Acct:[id number] Age/Sex: 53 / FADM Date: 12/13/23 Loc: MAMMO Attending Dr: Mckayla Blas NP Ordering Physician: Mckayla Blasesults: Date of Service: 12/13/23Follow Up: Procedure(s): MM tomosynthesis screening BI Accession Number(s): [id number] cc: Mckayla Blas NP Patient Name: SINA MACIAS MR#: [id number] : 1970 Exam Date: 12/13/2023 Ordering Doctor: SAYDA Blas CNP RADIOLOGY REPORT PROCEDURE: MM TOMOSYNTHESIS SCREENING BI COMPARISON: MG MAMM SCREEN 3D ALEX CAD, 11/22/2022. MG MAMM SCREEN 3DBIL CAD, 10/25/2021. MG MAMM SCREEN ALEX W CAD, 08/06/2020. MG MAMM ALEX SCRN WCAD DIG, 11/06/2014. INDICATIONS: Screening Calculator Name NCI Breast Cancer Risk Assessment Tool 5 Year Breast Cancer Risk 0.70% Lifetime Breast Cancer Risk 5.70% Personal Breast Cancer No Personal Ovarian Cancer No Treatments None Family Cancers Grandmother-paternal with ovarian cancer at age 80; Grandfather-paternal with unknown cancer at age 75. LOCATION: [facility] BREAST COMPOSITION: The breasts are almost entirely fatty. FINDINGS: DIAGNOSTIC CATEGORY 2--BENIGN FINDING: RIGHT BREAST: No significant suspicious finding. Scatteredbenign-appearing calcifications are present. No significant change has occurred. LEFT BREAST: No significant suspicious finding. Scatteredbenign-appearing calcifications are present. No significant change has occurred. RECOMMENDATIONS: ROUTINE MAMMOGRAM AND CLINICAL EVALUATION IN 12 MONTHS. PLEASE NOTE: A NORMAL MAMMOGRAM DOES NOT EXCLUDE THE POSSIBILITY OFBREAST CANCER. A CLINICALLY SUSPICIOUS PALPABLE LUMP SHOULD BE BIOPSIED. Dictated by: Noel Ivan M.D. on 12/14/2023 at 11:18 Approved by: Noel Ivan M.D. on 12/14/2023 at 11:21 Dictated By: Noel Ivan M.D. Signed By:12/14/23 1122 DD/ 1121 TD/TT: Supplier Quality Engineer: Mckayla Blas [facility] Final Result from Last 3 Months or Most Recently Relevant to Health Maintenance Insurance [employer] Care Teams Mobility Scooter Repairer Relationship Specialty Start Date End Date Ty Amin MD [address] [place] [address] PCP - General Family Medicine 09/20/23 Mckayla Blas NP [address] [place] [address] PCP - [facility] 09/07/23 09/05/90 Mckayla Blas NP [address] [place] [address] Nurse Practitioner Family Medicine 09/20/23
--- OUTSIDE RECORDS SUMMARY | 2024-12-09 14:22 | XMS_ITS | Encounter Summary ---
Author Organization [facility] Address [address] [place] [address] Care Team Providers Care Oxygen Equipment Aide Name Role Phone Ty Amin MD Primary Care Provider [phone] Mckayla Blas WORD PROCESSING OPERATOR Unavailable [phone] Mckayla Blas WORD PROCESSING OPERATOR Unavailable [phone] Reason for Visit * Reason Comments Med Refill Encounter Details Date Type Department Care Team (Late st Contact Info) Description 11/27/2023 Refill [facility] [address] [place] [address] Mckayla Blas NP [address] [place] [address] Chronic obstructive pulmonary disease, unspecified (CMS/HCC) Social History Tobacco Use Types Packs/Day Years [...] How often do you attend chur or spiritism services? 1 to 4 times per year 07/10/2023 Do you belong to any clubs o r organizations such as presybeterian groups, unions, fraternal or athletic groups, or [...] Answer Date Recorded Patient Health Questionnaire-2 Score 0 11/01/2023 [facility] - Occupational Stress [...] place to sleep or slept in a mcc (including now)? No 07/10/2023 Comments Unknown Sex and Gender Information Value Date Recorded Sex Assigned at Not on file Legal Sex Female 6:50 PM EDT Gender Identity Not on file Sexual Orientation Not on file documented as of this encounter Plan of Treatment Upcoming Encounters Date Type Department Care Team (Late st Contact Info) Description 01/26/2025 6:00 PM EDT [facility] [address] [place] [address] Mckayla Blas NP [address] [place] [address] 01/28/2025 10:50 AM EDT Office Visit [facility] [address] [place] [phone] Rain Souza MD [address] [place] [address] documented as of this encounter Visit Diagnoses Diagnosis Chronic obstructive pulmonary disease, unspecified documented in this encounter Care Teams Oxygen Equipment Aide Relationship Specialty Start Date End Date Ty Amin MD [address] [place] [address] PCP - General Family Medicine 09/20/23 Mckayla Blas NP [address] [place] [address] PCP - [facility] 09/07/23 09/05/90 Mckayla Blas NP [address] [place] [address] Nurse Practitioner Family Medicine 09/20/23 documented as of this encounter
--- OUTSIDE RECORDS SUMMARY | 2024-12-09 14:22 | XMS_ITS | Encounter Summary ---
Author Organization [facility] Address [address] [place] [address] Care Team Providers Care Pulp Beater Name Role Phone Ty Amin MD Primary Care Provider [phone] Ty Amin MD Primary Care Provider [phone] Mckayla Blas CORE MAKER Unavailable [phone] Mckayla Blas CORE MAKER Unavailable [phone] Encounter Details Date Type Department Care Team (Late st Contact Info) Description 07/08/2023 [facility] [address] [place] [phone] Mckayla Blas NP [address] [place] [address] Social History Tobacco Use Types Packs/Day Years Used Date Smoking Tobacco: Every Day Cigarettes Tobacco Cessation:Ready to Q uit: Not Asked; Counseling Given: Not Answered Humiliation, Afraid, Rape, and Kick questionnair e [...] often do you attend chur ch or religion services? 1 to 4 times per year 07/10/2023 Do you belong to any clubs o r organizations such as rastafarian groups, unions, fraternal or athletic groups, or [...] Recorded Patient Health Questionnaire-2 Score 2 07/10/2023 [facility] - [...] place to sleep or slept in a prison (including now)? No 07/10/2023 Comments Unknown Sex and Gender Information Value Date Recorded Sex Assigned at Not on file Legal Sex Female 6:50 PM EDT Gender Identity Not on file Sexual Orientation Not on file documented as of this encounter Functional Status * Audit-C Score Answer Date of Assessment Author 2 07/10/2023 11:22 AM UMBERTO VARELA * Q1: How often do you have a drink containing alcohol? Answer Date of Assessment Author Monthly or less 07/10/2023 11:22 AM UMBERTO VARELA * Q2: How many drinks containing alcohol do you have on a typical day when you are drinking? Answer Date of Assessment Author 1 or 2 07/10/2023 11:22 AM UMBERTO VARELA * Q3: How often do you have six or more drinks on one occasion? Answer Date of Assessment Author Less than monthly 07/10/2023 11:22 AM UMBERTO AMATO * Over the past 2 weeks, how often have you been bothered by any of the following problems? Question Answer Date of Assessment Author Little interest or pleasure in doing things Several days 07/10/2023 11:17 AM INDRA LAND Feeling down, depressed, or hopeless Several days 07/10/2023 11:17 AM INDRA LAND Patient Health Questionnaire-2 Score 2 07/10/2023 11:17 AM YANI LANDCA * If you checked off any problems on this questionnaire so far, Question Answer Date of Assessment Author How difficult have these problems made it for you to do your work, take care of things at home, or get along with other people? Somewhat difficult 07/10/2023 11:17 AM INDRA LAND documented as of this encounter Plan of Treatment Upcoming Encounters Date Type Department Care Team (Late st Contact Info) Description 01/26/2025 6:00 PM EDT Office Visit [facility] [address] [place] [phone] Mckayla Blas, SILVANO [address] [place] [address] 01/28/2025 10:50 AM EDT Office Visit [facility] [address] [place] [address] Rain Souza MD [address] [place] [address] documented as of this encounter Visit Diagnoses Not on filedocumented in this encounter Care Teams Pulp Beater Relationship Specialty Start Date End Date Ty Amin MD PCP - General Family Medicine 01/05/23 09/19/23 Ty Amin MD [address] [place] [address] PCP - General Family Medicine 09/20/23 Mckayla Blas NP [address] [place] [address] PCP - [facility] 09/07/23 09/05/90 Mckayla Blas NP [address] [place] [phone] Nurse Practitioner Family Medicine 09/20/23 documented as of this encounter
--- OUTSIDE RECORDS SUMMARY | 2024-12-09 14:22 | XMS_ITS | Encounter Summary ---
Author Organization [facility] Address [address] [place] [address] Care Team Providers Care Relationship Specialist Name Role Phone Ty Amin MD Primary Care Provider [phone] Mckayla Blas NP Unavailable [phone] Mckayla Blas NP Unavailable [phone] Encounter Details Date Type Department Care Team (Late st Contact Info) Description 12/04/2024 Clinisync Result Encounter [facility] External Department [...] 08/26/2024 How often do you attend chur or sabianism services? More than 4 times per year 08/26/2024 Do you belong to any clubs o r organizations such as taoist groups, unions, fraternal or athletic groups, or [...] Recorded Patient Health Questionnaire-2 Score 1 01/17/2024 [facility] of Occupat ional [facility] - Occupational Stress Questionnaire Answer Date Recorded [...] place to sleep or slept in a long term (including now)? No 07/10/2023 Housing Stability Vital Sign Answer Wilmer e Recorded In the last 12 months, was t here a time when you were not able to pay the mortgage or rent on time? No 08/26/2024 Number of Times Moved in the Last Year Not on fi le 08/26/2024 At any time in the past 12 m [facility], were you homeless or living in a long term (including now)? No 08/26/2024 Comments Unknown Sex and Gender Information Value Date Recorded Sex Assigned at Not on file Legal Sex Female 6:50 PM EDT Gender Identity Not on file Sexual Orientation Not on file documented as of this encounter Plan of Treatment Upcoming Encounters Date Type Department Care Team (Late st Contact Info) Description 01/26/2025 6:00 PM EDT [facility] [address] [place] [address] Mckayla Blas NP [address] [place] [phone] 01/28/2025 10:50 AM EDT Office Visit [facility] [address] [place] [phone] Rain Souza MD [address] [place] [address] Pending Results Name Type Priority Associated Diagnoses Date /Time BLOOD CULTURE 1 Lab Routine 5 4:44 PM EDT BLOOD CULTURE 2 Lab Routine 5 5:28 PM EDT documented as of this encounter Procedures Procedure Name Priority Date/Time Associated Diagnosis Comments BLOOD CULTURE 2 Routine 12/04/2024 5:28 PM EDT BLOOD CULTURE 1 Routine 12/04/2024 4:44 PM EDT documented in this encounter Visit Diagnoses Not on filedocumented in this encounter Additional Health Concerns Assessment Noted Time PHQ-9 Depression Total Score: 3 01/17/20 24 10:08 AM EDT documented as of this encounter Care Teams Relationship Specialist Relationship Specialty Start Date End Date Ty Amin MD [address] [place] [phone] PCP - General Family Medicine 09/20/23 Mckayla Blas NP [address] [place] [address] PCP - [facility] 09/07/23 09/05/90 Mckayla Blas NP [address] [place] [address] Nurse Practitioner Family Medicine 09/20/23 documented as of this encounter
--- OUTSIDE RECORDS SUMMARY | 2024-12-09 14:22 | XMS_ITS | Encounter Summary ---
Author Organization [facility] Address [address] [place] [address] Care Team Providers Care Fundraising Coordinator Name Role Phone Ty Amin MD Primary Care Provider [phone] Mckayla Blas ROLLER PICKER Unavailable [phone] Mckayla Blas NP Unavailable [phone] Encounter Details Date Type Department Care Team (Late st Contact Info) Description 12/17/2023 Orders Only [facility] [address] [place] [address] Mckayla Blas NP [address] [place] [phone] Social History Tobacco Use Types Packs/Day Years [...] any clubs o r organizations such as christianity groups, unions, fraternal or athletic groups, or [...] Recorded Patient Health Questionnaire-2 Score 0 11/01/2023 [facility] of Occupat ional Health - Occupational [...] 01/26/2025 6:00 PM EDT [facility] [address] [place] [address] Mckayla Blas NP [address] [place] [address] 01/28/2025 10:50 AM EDT Office Visit [facility] [address] [place] [phone] Rain Souza MD [address] [place] [address] documented as of this encounter Procedures Procedure Name Priority Date/Time Associated Diagnosis Comments MM SCREENING MAMM WITH 3D SERENA - US AND ADDITIONAL Routine 12/14/2023 8:34 AM EDT documented in this encounter Results * MM SCREENING MAMM WITH 3D SERENA - US AND ADDITIONAL (12/14/2023 8:34 AM EDT) Anatomical Region Laterality Modality Radiographic Kalani ging Mckayla Blas ROLLER PICKER IMG XR PROCEDURES Final Result documented in this encounter Visit Diagnoses Not on filedocumented in this encounter Care Teams Fundraising Coordinator Relationship Specialty Start Date End Date Ty Amin MD [address] [place] [phone] PCP - General Family Medicine 09/20/23 Mckayla Blas NP [address] [place] [address] PCP - [facility] 09/07/23 09/05/90 Mckayla Blas NP [address] [place] [address] Nurse Practitioner Family Medicine 09/20/23 documented as of this encounter
--- OUTSIDE RECORDS SUMMARY | 2024-12-09 14:22 | XMS_ITS | Clinical Summary ---
Author Organization [facility] Address [address] [address] Care Team Providers Care Public Policy Associate Name Role Phone Mckayla Blas MD Primary Care Provider [phone] Allergies No known active allergies Medications Medication [...] SUBCUTANEOUSLY TWICE DAILY 02/06/2022 Active HYDROcodone-acetam inophen (Delta) 5-325 mg tablet TAKE 1 TABLET BY MOUTH THREE TIMES A DAY NEEDED FOR PAIN MUST LAST 30 DAYS 11/09/2023 Active DULoxetine (Cymbalta) [address] capsule Take 1 tablet by mouth in the morning. Active ergocalciferol (Vitamin D-2) 1.25 MG (05461 Units) capsule Take 1.25 mg by mouth. [...] Assessment & Plan: Open wounds refer to [facility] Wound Care Vaginal yeast infection 08/17/2023 [...] am also going to have her see [facility] Cardiology as well Encounters Date Type Department Care Team Description 10/21/2024 Telephone [facility] [address] [place] [address] Mickie Hammond MA from Last 3 Months Family History Medical History Relation Name Comments Heart attack Paternal Grandmother Relation Name Status Comments Paternal Grandmother Social History Tobacco Use Types Packs/Day Years Used Date Smoking Tobacco: Every Day Cigarettes Smokeless Tobacco: Never Tobacco Cessation:Ready to Q uit: Not Asked; Counseling Given: Not Answered Alcohol Use Standard Drinks/Week Comments Not Currently 0 (1 standard drink = 0.6 oz pur e alcohol) [place] Safety & Environment Answer Date Rec orded [...] Description 12/18/2024 2:20 PM EDT Office Visit [facility] [address] [place] [address] Karma Chatterjee, STEELSCOPE OPERATOR [address] [place] [address] Health Maintenance Due Date Last Done Comments CT Colonography 1970 Colonoscopy 1970 Colorectal Cancer Screening 1970 Diabetes: Hemoglobin A1C 1970 FIT-DNA 1970 FIT 1970 FOBT 1970 Medicare Annual Wellness (AWV) 1970 Sigmoidoscopy 1970 Diabetes: Retinopathy Screening 1980 Depression Screening 1982 Diabetes: Urine Protein Screening 1989 Hepatitis B Vaccines (1 of 3 - 19+ 3-dose series) 1989 Pap Smear 1991 Adult Tetanus 1992 Cervical Cancer Screening 2000 HPV/Cotest 2000 Mammogram 2010 Pneumococcal Vaccine: Pediatrics (0 to 5 Years) and At-Risk Patients (6 to 64 Years) (2 of 2 - PCV) 04/16/2018 04/16/2017 Zoster Vaccines (1 of 2) 2020 COVID-19 Vaccine ( season) 2024 07/19/2021, 10/28/2020, 10/08/2020 Influenza Vaccine (Season Ended) 2025 05/18/2023, 04/16/2017, 05/10/2016, Additional history exists HIB Vaccines Aged Out No longer eligi ble based on patient's age to complete this topic HPV Vaccines Aged Out No longer eligi ble based on patient's age to complete this topic IPV Vaccines Aged Out No longer eligi ble based on patient's age to complete this topic Meningococcal B Vaccine Aged Out No l onger eligible based on patient's age to complete this topic Meningococcal Vaccine Aged Out No franchesca nialm eligible based on patient's age to complete this topic Rotavirus Vaccines Aged Out No longer eligible based on patient's age to complete this topic Care Teams Public Policy Associate Relationship Specialty Start Date End Date Mckayla Blas MD [address] [place] [address] PCP - General Nurse Practitioner 11/13/23
--- OUTSIDE RECORDS SUMMARY | 2024-12-09 14:22 | XMS_ITS | Encounter Summary ---
Author Organization [facility] Address [address] [place] [address] Care Team Providers Care Cosmetology Teacher Name Role Phone Ty Amin MD Primary Care Provider [phone] Mckayla Blas NP Unavailable [phone] Mckayla Blas NP Unavailable [phone] Encounter Details Date Type Department Care Team (Latest Contact Info) Description 12/08/2024 Travel Social History Tobacco Use Types Packs/Day Years [...] week 08/26/2024 How often do you attend [facility] or episcopal services? More than 4 times per year 08/26/2024 Do you belong to any clubs o r organizations such as methodist groups, unions, fraternal or athletic groups, or [...] Recorded Patient Health Questionnaire-2 Score 1 01/17/2024 [facility] - Occupational Stress Questionnaire Answer Date [...] place to sleep or slept in a assisted (including now)? No 07/10/2023 Housing Stability Vital Sign Answer Wilmer e Recorded In the last 12 months, was t here a time when you were not able to pay the mortgage or rent on time? No 08/26/2024 Number of Times Moved in the Last Year Not on fi le 08/26/2024 At any time in the past 12 m [facility], were you homeless or living in a assisted (including now)? No 08/26/2024 Comments Unknown Sex and Gender Information Value Date Recorded Sex Assigned at Not on file Legal Sex Female 6:50 PM EDT Gender Identity Not on file Sexual Orientation Not on file documented as of this encounter Plan of Treatment Upcoming Encounters Date Type Department Care Team (Late st Contact Info) Description 01/26/2025 6:00 PM EDT [facility] [address] [place] [address] Mckayla Blas NP [address] [place] [phone] 01/28/2025 10:50 AM EDT Office Visit [facility] [address] [place] [address] Rain Souza MD [address] [place] [address] documented as of this encounter Visit Diagnoses Not on filedocumented in this encounter Additional Health Concerns Assessment Noted Time PHQ-9 Depression Total Score: 3 01/17/20 24 10:08 AM EDT documented as of this encounter Care Teams Cosmetology Teacher Relationship Specialty Start Date End Date Ty Amin MD [address] [place] [phone] PCP - General Family Medicine 09/20/23 Mckayla Blas NP [address] [place] [address] PCP - [facility] 09/07/23 09/05/90 Mckayla Blas NP [address] [place] [address] Nurse Practitioner Family Medicine 09/20/23 documented as of this encounter
--- OUTSIDE RECORDS SUMMARY | 2024-12-09 14:22 | XMS_ITS | Encounter Summary ---
Author Organization [facility] Address [address] [place] [address] Care Team Providers Care Pe Manager Name Role Phone Ty Amin MD Primary Care Provider [phone] Mckayla Bals ORACLE IDENTITY MANAGEMENT CONSULTANT Unavailable [phone] Mckayla Blas NP Unavailable [phone] Encounter Details Date Type Department Care Team (Late st Contact Info) Description 12/14/2023 Clinisync Result Encounter [facility] External Department Unsolicited Mckayla Blas NP [address] [place] [address] Social History Tobacco Use Types Packs/Day Years [...] any clubs o r organizations such as baptism groups, unions, fraternal or athletic groups, or [...] Recorded Patient Health Questionnaire-2 Score 0 11/01/2023 [facility] of Occupat ional [facility] - Occupational Stress Questionnaire Answer Date [...] to sleep or slept in a senior care (including now)? No 07/10/2023 Comments Unknown Sex and Gender Information Value Date Recorded Sex Assigned at Not on file Legal Sex Female 6:50 PM EDT Gender Identity Not on file Sexual Orientation Not on file documented as of this encounter Plan of Treatment Upcoming Encounters Date Type Department Care Team (Late st Contact Info) Description 01/26/2025 6:00 PM EDT [facility] [address] [place] [address] Mckayla Blas NP [address] [place] [address] 01/28/2025 10:50 AM EDT Office Visit [facility] [address] [place] [address] Rain Souza MD [address] [place] [address] documented as of this encounter Procedures Procedure Name Priority Date/Time Associated Diagnosis Comments MM TOMOSYNTHESIS SCREENING BI 12/14/2023 11:21 AM EDT documented in this encounter Results * MM TOMOSYNTHESIS SCREENING BI (12/14/2023 11:21 AM EDT) Anatomical Region Laterality Modality Other 12/14/2023 11:2 1 AM EDT Narrative 12/14/2023 11:22 AM EDT The [address] [address] Mammography Report Signed Patient: MITZI MACIAS MR#: [id number] : 1970 Acct:[id number] Age/Sex: 53 / F ADM Date: 12/13/23 Loc: MAMMO Attending Dr: Mckayla Blas NP Ordering Physician: Mckayla Blas NP Results: Date of Service: 12/13/23 Follow Up: Procedure(s): MM tomosynthesis screening BI Accession Number(s): [id number] cc: Mckayla Blas NP Patient Name: MITZI MACIAS MR#: [id number] : 1970 Exam Date: 12/13/2023 Ordering Doctor: [...] unknown cancer at age 75. LOCATION: [facility] BREAST COMPOSITION: The breasts are almost entirely [...] Signed By: 12/14/23 1122 DD/ 1121 TD/TT: Web Application Dev Specialist: Procedure Note Radiology, Radiologist, MD - 12/14/2023 [place] [address] Mammography Report Signed Patient: MITZI MACIAS LMR#: [id number] : 1970Acct:[id number] Age/Sex: 53 / FADM Date: 12/13/23 Loc: MAMMO Attending Dr: Mckayla Blas NP Ordering Physician: Mckayla Blas NPResults: Date of Service: 12/13/23Follow Up: Procedure(s): MM tomosynthesis screening BI Accession Number(s): [id number] cc: Mckayla Blas NP Patient Name: MITZI MACIAS MR#: [id number] : 1970 Exam Date: 12/13/2023 Ordering Doctor: SAYDA Blas COMMERCIAL ELECTRICIAN RADIOLOGY REPORT PROCEDURE: MM TOMOSYNTHESIS SCREENING BI [...] unknown cancer at age 75. LOCATION: [facility] BREAST COMPOSITION: The breasts are almost entirely [...] M.D. Signed By:12/14/23 1122 DD/ 1121 TD/TT: Web Application Dev Specialist: us Mckayla Blas NP [facility] Final Result documented in this encounter Visit Diagnoses Not on filedocumented in this encounter Care Teams Pe Manager Relationship Specialty Start Date End Date Ty Amin MD [address] [place] [address] PCP - General Family Medicine 09/20/23 Mckayla Blas NP [address] [place] [phone] PCP - [facility] 09/07/23 09/05/90 Mckayla Blas NP [address] [place] [address] Nurse Practitioner Family Medicine 09/20/23 documented as of this encounter
--- OUTSIDE RECORDS SUMMARY | 2024-12-09 14:22 | XMS_ITS | Patient Health Record ---
Author Organization [facility] in [place] Address [address] [place] [address] Care Team Providers Care Receptionist Secretary Name Role Phone Mckayla Blas CNP Primary Care Provider Unavail able Armando Yañez Unavailable [phone] Allergies No Known Allergies Results Component Value Reference Range Notes CBC AUTO DIFF (Not yet revie wed by provider) Interpretation: Performing Lab: Notes/Report: [facility] , White Blood Count 12.8 4.0-11.0 10 3/uL Red Blood Count 5.52 4.20-5.40 10 6/uL Hemoglobin 16.1 12.0-16.0 g/dL Hematocrit 50.9 36.0-48.0 % Mean Corpuscular Volume 92.2 81.0-99.0 fL Mean Corpuscular Hemoglobin 29.2 26.7-34.0 pg Mean Corpuscular HGB Conc 31.6 29.9-35.2 g/dL Red Cell Distribution Width 14.6 11.0-15.0 % Platelet Count 122 150-450 10 3/uL Mean Platelet Volume 12.8 9.5-13.5 fL Neutrophils Percent Auto 67.0 43.0-75.0 % Lymphocytes Percent Auto 25.1 20.5-60.0 % Monocytes Percent Auto 5.2 1.7-12.0 % Eosinophils Percent Auto 1.9 0.9-7.0 % Basophils Percent Auto 0.5 0.2-2.0 % Immature Granulocytes Pct Auto 0.3 0.0-0.5 % Neutrophils Absolute Auto 8.6 1.4-6.5 10 3/uL Lymphocytes Absolute Auto 3.2 1.2-3.8 10 3/uL Monocytes Absolute Auto 0.7 0.3-0.8 10 3/uL Eosinophils Absolute Auto 0.2 0.0-0.7 10 3/uL Basophils Absolute Auto 0.1 0.0-0.1 10 3/uL Immature Granulocytes Abs Auto 0.04 0.00-0.03 10 3/uL Performing Lab: see note - [facility] LB PROF CHEM 8 (BAS METB) (Not yet reviewed by provider) Interpretation: Performing Lab: Notes/Report: [facility] , Sodium 142 136-145 mmol/L Potassium 4.2 3.5-5.1 mmol/L Chloride 103 98-107 mmol/L Carbon Dioxide 31.5 21.0-32.0 mmol/L Anion Gap 11.7 Glucose 223 74-106 mg/dL Blood Urea Nitrogen 16.0 7.0-18.0 mg/dL Creatinine 0.82 0.55-1.02 mg/dL Estimated GFR ( Katty >60 >=60 mL/min/1.73m 2 Estimated GFR (Non- Kristen >60 >=60 mL/min/1.73m 2 BUN Creatinine Ratio 19.5 Calcium 9.0 8.5-10.1 mg/dL Performing Lab: see note - [facility] VC SEGMENTAL PRESSURES (Not yet reviewed by provider) Interpretation: Performing Lab: Notes/Report: Source Facility: [facility]-[address] [place] [address] [place] [address] Vein Report Signed Patient: MITZI MACIAS MR#: [id number] : 1970 Acct:[id number] Age/Sex: 53 / F ADM Date: 04/24/24 Loc: VC Attending Dr: Rafael Gongora Ordering Physician: Rafael Gongora Date of Service: 04/24/24 Procedure(s): VC SEGMENTAL PRESSURES Accession Number(s): [id number] cc: Mckayla Blas NP; Rafael Gongora [place] [id number] Patient Name: MITZI MACIAS MRN: [facility]:[id number] date: 1970 Sex: F Assigned Patient Location: VC Current Patient Location: VC Accession/Order Number: [id number] Exam Date: 04/24/2024 10:25 Report Date: 04/24/2024 11:20 At the request of: RAFAEL GONGORA Procedure: VC SEGMENTAL PRESSURES EXAM: VC SEGMENTAL PRESSURES HISTORY: R09.89 COMPARISON: None. FINDINGS: Segmental pressures presented as follows (right, left) in mmHg. Brachial: 169, 166 Upper thigh: Not obtained Lower thigh: 129, 119 Calf: 124, 106 DPA: 108, 105 EPIC KALEIDOSCOPE ANALYST: 100, 91 1st Toe: 124, 142 ISABELLE: [...] Signed By: 04/24/24 1123 DD/ 1120 TD/TT: Movement Education Specialist: [place] [address] Vein Report Signed Patient: BARBY MACIAS MR#: [id number] : 1970 Acct:[id number] Age/Sex: 53 / F ADM Date: 04/24/24 Loc: VC Attending Dr: Nanci Gongora Ordering Physician: Rafael Gongora Date of Service: 04/24/24 Procedure(s): VC SEGMENTAL PRESSURES Accession Number(s): [id number] cc: Mckayla Blas NP ; Rafael Gongora [place] [id number] Patient Name: MITZI MACIAS MRN: [id number] date: 1970 Sex: F Assigned Patient Location: VC Current Patient Location: VC Accession/Order Numb er: [id number] Exam Date: 10:25 Report Date: 04/24/2024 11:20 At the request of: RAFAEL GONGORA Procedure: VC SEGMEN KARY PRESSURES EXAM: VC SEGMENTAL PRESSURES HISTORY: R09.89 COMPARISON: None. FINDINGS: Segmental pressures presented as follows (right, left) in mmHg. Brachial: 169, 166 Upper thigh: Not obtained Lower thigh: 129, 119 Calf: 124, 106 DPA: 108, 105 EPIC KALEIDOSCOPE ANALYST: 100, 91 1st Toe: 124, 142 ISABELLE: 0.64, 0.62 TBI: 0.73, 0.84 The ABIs are abnormal The TBI's are Acceptable PVR waveforms: Right leg: Above knee: Moderate ischemia Below knee: Moderate ischemia Right ankle: Moderat e ischemia Metatarsal: Severe ischemia Left leg: Above knee: Moderate ischemia Below knee: Moderate to severe Right ankle: Moderat e ischemia Metatarsal: Moderate ischemia VEIN/VC SEGMENTAL PRESSURES IMPRESSION: Bilateral diffuse moderate ischemic waveform The ABIs consistent with bilateral moderate arterial occlusive disease Electronically authenticated by: MARYANNE GARDNER Date: 04/24/2024 11:20 Dictated By: Jacobo Gardner M.D. Signed By: 04/24/24 1123 DD/ 1120 TD/TT: Movement Education Specialist: Reason For Referral No Information Medications Medication SIG (Take, Route, Frequency, Duration) Notes Start Date End Date Status Varenicline Tartrate(Continue) 1 MG as directed Orally BID for 30 days Dispense #1 pack (begin after completing starter pack) 12/05/2023 Active Lantus SoloStar 100 UNIT/ML INJECT 58 UNITS SUBCUTANEOUSLY TWICE A DAY Subcutaneous for 90 Days Active HYDROcodone-Acetamin ophen 5-325 MG Oral for 30 Days Active hydrALAZINE HCl 25 MG TAKE 1 TABLET BY MOUTH TWICE A DAY Oral for 90 Days Active Farxiga 10 MG Oral for 90 Days Active Amitriptyline HCl 25 MG TAKE 1 TABLET BY MOUTH EVERYDAY AT BEDTIME Oral for 90 Days Active Albuterol Sulfate HFA 108 (90 Base) MCG/ACT 1 puff as needed Inhalation every 4 hrs Active Potassium Chloride ER 10 MEQ Oral for 90 Days Active Albuterol Sulfate (2.5 MG/3ML) 0.083% 3 mL as needed Inhalation every 6 hrs 12/05/2023 Active Mounjaro 10 MG/0.5ML Subcutaneous for 84 Days Active Lisinopril 20 MG Oral for 90 Days Active Varenicline Tartrate (Starter) 0.5 MG X 11 & 1 MG X 42 as directed Orally BID for 25 days Dispense #1 pack 12/05/2023 Active [facility] Aspirin Adult Low Dose 81 MG CHEW 1 TABLET (81 MG) DAILY Oral for 90 Days Active [facility] Allergy Relief(Cetirizine) 10 MG TAKE 1 TABLET (10 MG) BY MOUTH DAILY. Oral for 90 Days Active Vitamin D (Ergocalciferol) 1.25 MG (27230 UT) Oral for 90 Days Activ e Breztri Aerosphere 160-9-4.8 MCG/ACT Inhalation for 30 Days Active Simvastatin 10 MG Oral for 90 Days Active Roflumilast 250 MCG Oral for 28 Days Active Immunizations Vaccine Route Administration Date Status Comme nts Flu, Fluzone (48544) 6-35mo, multi-dose vial (2215-8480) Unknown 05/18/2023 Administered Pneumococcal (Pneumovax 23) Unknown 04/16/2017 Administ ered SARS-COV-2 (COVID 19 Pfizer 30mcg/0.3mL) Unknown 07/19/2021 Administered Social History Tobacco Use: Social History Observation Description Date Details (start date - stop date) Current Smoker NA - NA Tobacco Control (Standard) Question Answer Notes Tobacco use: Current every day smoker Additional Findings: Tobacco user Moderate cigar ette smoker (10-19 cigs/day) Problems Problem Type SNOMED Code ICD Code Onset Dates Problem Status W/U Status Risk Notes Problem Foot ulcer due to type 2 diabetes mellitus (9696180740818) Type 2 diabetes mellitus with foot ulcer (E11.621) Active confirmed Problem 952586234 Morbid (severe) obesity due to excess calories (E66.01) Active confirmed Problem Venous ulcer of lower extremity due to chronic peripheral venous hypertension (561454814808679 ) Chronic venous hypertension (idiopathic) with ulcer of left lower extremity (I87.312) Active confirmed Problem Chronic non-pressure ulcer of calf extending to fat level (535029838150274 01) Non-pressure chronic ulcer of other part of right lower leg with fat layer exposed (L97.812) Active confirmed Problem Chronic ulcer of skin of lower leg (disorder) (184456344164661 04) Non-pressure chronic ulcer of other part of left lower leg limited to breakdown of skin (L97.821) Active confirmed Problem Long-term current use of inhaled steroid (396645187) correction (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 inhaled steroids (Z79.51) Active confirmed Problem COPD - Chronic obstructive pulmonary disease (11746114) COPD (chronic obstructive pulmonary disease) (J44.9) Active confirmed Problem Obstructive sleep apnea syndrome (32202337) DANIEL (obstructive sleep apnea) (G47.33) Active confirmed Problem Diabetes mellitus type 2 (disorder) (75530892) DM2 (diabetes mellitus, type 2) (E11.9) Active confirmed Problem Mental disorder caused by drug (751039889) Cigarette nicotine dependence with nicotine-induced disorder (F17.219) Active confirmed Problem 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 (I87.313) Active confirmed Problem Non-prs chr ulcer oth prt l low leg limited to brkdwn skin (L97.821) Active confirmed Problem Stasis dermatitis co-occurrent with venous ulcer of right lower extremity due to chronic peripheral venous hypertension (400393853627102 ) Idiopathic chronic venous hypertension of right lower extremity with ulcer (I87.311) Active confirmed Problem Abnormal arterial blood gas (054828148) Elevated carbon dioxide level (R79.81) Active confirmed Problem Skin ulcer of right knee, limited to breakdown of skin (L97.811) Active confirmed Encounters Encounter Location Date Provider Diagnosis [facility] [place] [address] [place] [address] 04/07/2024 Armando Yañez [facility] [address] [place] [address] 12/02/2024 Armando Yañez Plan Of Treatment Pending Test Test Name Order Date CBC AUTO DIFF 08/27/2024 PROF CHEM 8 (BAS METB) 08/27/2024 VC SEGMENTAL PRESSURES 04/24/2024 Insurance Providers Payer Name Payer Address Payer Phone Subscriber Number Group Number Insured Name Patient Relationship to Insured Coverage Start Date Coverage End Date [employer] [address] [address] [place], [place] [id number] Mitzi Macias Self - patient is the insured Medical (General) History Medical History History ICD Code COPD (chronic obstructive pulmonary dise ase) J44.9 LVH (left ventricular hypertrophy) I51.7 HTN (hypertension) I10 DANIEL (obstructive sleep apnea) G47.33 Chronic diastolic congestive heart failu re I50.32 Cigarette nicotine dependence with nicot ine-induced disorder F17.219 DM2 (diabetes mellitus, type 2) E11.9 HLD (hyperlipidemia) E78.5 Elevated carbon dioxide level R79.81 exterminator termite (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 inhaled stero ids Z79.51 Anxiety and depression F41.8 GERD (gastroesophageal reflux disease) K 21.9 Surgical History Surgery Date(Month/Year) toe surgery cholecystectomy hysterectomy Hospitalization History Reason Date(Month/Year) Pneumonia -[facility] 08/31/2023 COPD Exacerbation-[facility] 09/10/2023
--- OUTSIDE RECORDS SUMMARY | 2024-12-09 14:22 | XMS_ITS | Encounter Summary ---
Author Organization [facility] Address [address] [place] [address] Care Team Providers Care Sales Trainee Name Role Phone Ty Amin MD Primary Care Provider [phone] Mckayla Blas FILTERS ASSEMBLER Unavailable [phone] Mckayla Blas FILTERS ASSEMBLER Unavailable [phone] Encounter Details Date Type Department Care Team (Late st Contact Info) Description 12/09/2024 Bamboo flowsheet [facility] [address] [place] [id number] Mckayla Blas NP [address] [place] [address] Social History Tobacco Use Types Packs/Day Years [...] How often do you attend chur or anabaptism services? More than 4 times per year [...] Recorded Patient Health Questionnaire-2 Score 1 01/17/2024 [facility] - Occupational Stress [...] place to sleep or slept in a [place] (including now)? No 07/10/2023 Housing Stability Vital Sign Answer Wilmer e Recorded In the last 12 months, was t here a time when you were not able to pay the mortgage or rent on time? No 08/26/2024 Number of Times Moved in the Last Year Not on fi le 08/26/2024 At any time in the past 12 m [facility], were you homeless or living in a [place] facility (including now)? No 08/26/2024 Comments Unknown Sex and Gender Information Value Date Recorded Sex Assigned at Not on file Legal Sex Female 6:50 PM EDT Gender Identity Not on file Sexual Orientation Not on file documented as of this encounter Plan of Treatment Upcoming Encounters Date Type Department Care Team (Late st Contact Info) Description 01/26/2025 6:00 PM EDT Office Visit [facility] [address] [place] [address] Mckayla Blas NP [address] [place] [address] 01/28/2025 10:50 AM EDT Office Visit [facility] [address] [place] [address] Rain Souza MD [address] [place] [address] documented as of this encounter Visit Diagnoses Not on filedocumented in this encounter Additional Health Concerns Assessment Noted Time PHQ-9 Depression Total Score: 3 01/17/20 10:08 AM EDT documented as of this encounter Care Teams Sales Trainee Relationship Specialty Start Date End Date Ty Amin MD [address] [place] [id number] PCP - General Family Medicine 09/20/23 Mckayla Blas NP [address] [place] [address] PCP - [facility] 09/07/23 09/05/90 Mckayla Blas NP [address] [place] [address] Nurse Practitioner Family Medicine 09/20/23 documented as of this encounter
== END 2024-12-09 14:20 | disposition home or self-care (01) ==
LOC: WC 14:19
PROVIDERS: PCP Nurse Practitioner; Visit Provider Physician Assistant
DX: I87.311 Chronic venous hypertension (idiopathic) with ulcer of right lower extremity (principal); L97.812 Non-pressure chronic ulcer of other part of right lower leg with fat layer exposed; I87.332 Chronic venous hypertension (idiopathic) with ulcer and inflammation of left lower extremity; L97.822 Non-pressure chronic ulcer of other part of left lower leg with fat layer exposed
CPT/HCPCS: G0463

== ENCOUNTER 2024-12-12 09:26 | Outpatient (RCR) | payer MEDICARE, SELFPAY | END 2024-12-13 09:03 | disposition home or self-care (01) | LOC: OT 09:26 | PROVIDERS: PCP Nurse Practitioner; Visit Provider Physician Assistant | DX: I89.0 Lymphedema, not elsewhere classified (principal) | CPT/HCPCS: 97167 ==

== ENCOUNTER 2025-01-06 10:39 | Outpatient (OUT) | payer MEDICARE, MEDICAID, SELFPAY ==
--- OUTSIDE RECORDS SUMMARY | 2025-01-06 11:01 | XMS_ITS | CCD ---
Author Organization [facility] Care Team Providers Care Apron Operator Name Role Phone James Benavidez Primary Care Provider JAMES BENAVIDEZ Primary Care Unavailable SHENDGE, VITHAL Admitting Unavailable SHENDGE, VITHAL Attending Unavailable AICHHOLZ, MCKAYLA Primary Care Unavailable AICHHOLZ, MCKAYLA Referring Unavailable AICHHOLZ, MCKAYLA J Primary Care Physician Tico, Stephanie Unavailable OLE RAMIREZ Attending Unavailable OLE RAMIREZ Consulting Unavailable AICHHOLZ, ECMO SPECIALIST MCKAYLA Primary Care Unavailable OLE RAMIREZ Admitting Unavailable ANTONY SHRESTHA Consulting Unavailable ALONDRA ., UMBERTO Admitting Unavailable ALONDRA ., UMBERTO Attending Unavailable AICHHOLZ, ECMO SPECIALIST MCKAYLA Primary Care Unavailable AFSANEH Loera, DR BOLANOS Consulting Unavailable MARYANNE POWER Consulting Unavailable GLENN KERR Consulting Unavailable YOMAIRA KERR Consulting Unavailable HATTIE GOFF Consulting Unavailable ALONDRA ., UMBERTO Consulting Unavailable TICO, STEPHANIE Attending Unavailable TICO, STEPHANIE Consulting Unavailable AICHHOLZ, ECMO SPECIALIST MCKAYLA Primary Care Unavailable TICO, STEPHANIE Admitting Unavailable REGLA ., DR DUMONT Admitting Unavailable AICHHOLZ, ECMO SPECIALIST MCKAYLA Primary Care Unavailable REGLA ., DR DUMONT Attending Unavailable ARAUZ ., DR DUMONT Consulting Unavailable COLLIN HUERTAS Consulting Unavailable CECILIA KAUFMAN Admitting Unavailable CECILIA KAUFMAN Attending Unavailable AICHHOLZ, ECMO SPECIALIST MCKAYLA Primary Care Unavailable RAFAEL GONGORA Attending Unavailable RAFAEL GONGORA Admitting Unavailable AICHHOLZ, ECMO SPECIALIST MCKAYLA Primary Care Unavailable AICHHOLZ, ECMO SPECIALIST MCKAYLA Admitting Unavailable AICHHOLZ, ECMO SPECIALIST MCKAYLA Primary Care Unavailable AICHHOLZ, ECMO SPECIALIST MCKAYLA Attending Unavailable AICHHOLZ, ECMO SPECIALIST MCKAYLA Consulting Unavailable LAKSHMIPATHY ., NARENDRANATH Attending Anette vailable LAKSHMIPATHY ., NARENDRANATH Consulting Anette vailable LAKSHMIPATHY ., NARENDRANATH Admitting Anette vailable AICHHOLZ, ECMO SPECIALIST MCKAYLA Primary Care Unavailable VALENZUELA ., GIL Consulting Unavailable MORTENSEN ., DR CHAPARRO Aguillon Attending Unavailable MORTENSEN ., DR CHAPARRO Aguillon Admitting Unavailable AICHHOLZ, ECMO SPECIALIST MCKAYLA Primary Care Unavailable VALENZUELA ., GIL Consulting Unavailable MORTENSEN ., DR CHAPARRO Aguillon Admitting Unavailable AICHHOLZ, ECMO SPECIALIST MCKAYLA Primary Care Unavailable MORTENSEN ., DR CHAPARRO Aguillon Attending Unavailable HALKER ., SUBHASH Consulting Unavailable LAKSHMIPATHY ., NARENDRANATH Admitting Anette vailable LAKSHMIPATHY ., NARENDRANATH Attending Anette vailable AICHHOLZ, ECMO SPECIALIST MCKAYLA Primary Care Unavailable MORTENSEN ., DR CHAPARRO Aguillon Attending Unavailable MORTENSEN ., DR CHAPARRO Aguillon Admitting Unavailable VALENZUELA ., GIL Consulting Unavailable AICHHOLZ, ECMO SPECIALIST MCKAYLA Primary Care Unavailable VALENZUELA ., GIL Consulting Unavailable MORTENSEN ., DR CHAPARRO Aguillon Attending Unavailable MORTENSEN ., DR CHAPARRO Aguillon Admitting Unavailable AICHHOLZ, ECMO SPECIALIST MCKAYLA Primary Care Unavailable HATTIE BRODERICK Attending Unavailable HATTIE BRODERICK Admitting Unavailable AICHHOLZ, ECMO SPECIALIST MCKAYLA Primary Care Unavailable AICHHOLZ, ECMO SPECIALIST MCKAYLA Admitting Unavailable AICHHOLZ, ECMO SPECIALIST MCKAYLA Consulting Unavailable AICHHOLZ, ECMO SPECIALIST MCKAYLA Primary Care Unavailable AICHHOLZ, ECMO SPECIALIST MCKAYLA Attending Unavailable AICHHOLZ, ECMO SPECIALIST MCKAYLA Primary Care Unavailable MISC, DR LESLIE Admitting Unavailable MISC, DR LESLIE Attending Unavailable MISC, DR LESLIE Consulting Unavailable DIAB ., MARIANO Admitting Unavailable DIAB ., MARIANO Attending Unavailable DIAB ., MARIANO Consulting Unavailable AICHHOLZ, ECMO SPECIALIST MCKAYLA Primary Care Unavailable RASTEGAR, RICCO Consulting Unavailable AICHHOLZ, ECMO SPECIALIST MCKAYLA Admitting Unavailable AICHHOLZ, ECMO SPECIALIST MCKAYLA Primary Care Unavailable AICHHOLZ, ECMO SPECIALIST MCKAYLA Attending Unavailable AICHHOLZ, ECMO SPECIALIST MCKAYLA Consulting Unavailable DR PATRICIA VELOZ Consulting Unavailable TAMLYN ., CECILIA Attending Unavailable TAMLYN ., CECILIA Admitting Unavailable DR PATRICIA VELOZ Consulting Unavailable AICHHOLZ, ECMO SPECIALIST MCKAYLA Primary Care Unavailable TAMLYN ., CECILIA Consulting Unavailable MORTENSEN ., DR CHAPARRO Aguillon Attending Unavailable FESTUS ., DR CHAPARRO Aguillon Consulting Unavailable FESTUS ., DR CHAPARRO Aguillon Admitting Unavailable AICHHOLZ, ECMO SPECIALIST MCKAYLA Primary Care Unavailable HATTIE BRODERICK Attending Unavailable HATTIE BRODERICK Consulting Unavailable HATTIE BRODERICK Admitting Unavailable AICHHOLZ, ECMO SPECIALIST MCKAYLA Primary Care Unavailable HATTIE BAUTISTA Unavailable AICHHOLZ, SAYDA MCKAYLA Admitting Unavailable AICHHOLZ, ECMO SPECIALIST MCKAYLA Attending Unavailable AICHHOLZ, ECMO SPECIALIST MCKAYLA Consulting Unavailable AICHHOLZ, ECMO SPECIALIST MCKAYLA Primary Care Unavailable Brennan PHIPPS, Ty Primary Care Provider Brennan PHIPPS, Ty Primary Care Provider [phone] Aichholz MARKETING ANALYTICS ANALYST, Mckayla Unavailable Aichholz MARKETING ANALYTICS ANALYST, Mckayla Unavailable Elbert ARAUZ Attending Unavailable SARAH VEGA Attending Unavailable DAKOTAH BRIDGES Attending Unavailable BHARAT AGUILAR Attending Unavailable AICHHOLZ, MCKAYLA Attending Unavailable RAIN SOUZA Attending Unavailable AICHHOLZ, MCKAYLA Attending Unavailable AICHHOLZ, MCKAYLA Attending Unavailable AICHHOLZ, MCKAYLA Attending Unavailable AICHHOLZ, MCKAYLA Attending Unavailable RAIN SOUZA Attending Unavailable RAIN SOUZA Referring Unavailable AICHHOLZ, MCKAYLA Attending Unavailable Allergies Allergy Classification Reported Allergen(s) Allergy Type Date of Onset Reaction(s) Facility (1 source) No Known Medication Allergies; Translations: [No Known Medication Allergies] Propensity to adverse reactions (disorder) [facility] Repository Medications Current Medications Medication Drug [...] Start Date: 02/06/22 Status: Ordered HYDROcodone-acet aminophen (Cheyenne) 5-325 MG tablet 1 tablet 3 (three) times a day as needed for severe pain. Active take 1 tablet by vandana twice daily as needed Cheyenne 5-325 MG 1 tablet as needed Orally [...] by mouth at bedtime 90 tablet 1 10/27/2024 01/25/2025 Active amoxicillin 875 mg / clavulanate 125 mg oral tablet (4 sources) Penicillin-class Antibacterial Start: 2024 take 1 tablet by mouth every twelve hours amoxicillin-clavulanate (Augmentin) 875-125 MG tablet Take 1 tablet by mouth every 12 (twelve) hours 12/05/2024 Active aspirin 81 mg chewable tablet (20 sources) Platelet Aggregation Inhibitor, Nonsteroidal Anti-inflammatory Drug Start: 2023 End: 07-20- 2025 aspirin 81 MG chewable tablet Indications: Type 2 diabetes mellitus with complication, with long-term current use of insulin ([facility]) Chew 1 tablet (81 mg) Daily 90 tablet 3 10/27/2024 01/25/2025 Active aspirin 81 MG ch ewable tablet Chew 81 mg in the morning. 0 Active baclofen 10 mg oral tablet (17 sources) gamma-Aminobutyric Acid-ergic Agonist Start: 06-24-2024 take [...] by mouth Daily 90 tablet 1 10/27/2024 01/25/2025 Active take 1 tablet by mouth in [...] by mouth Daily 90 tablet 1 10/27/2024 01/25/2025 Active Start: 08-14-2023 End: 11-12-2023 take 1 [...] not crush or chew. 180 capsule 1 10/27/2024 01/25/2025 Active Start: 07-23-2023 End: 08-22-2023 take 1 [...] 02/06/22 Status: Ordered DULoxetine 30 mg Cap-EC (2 sources) Start: 02-06-2022 DULoxetine 30 mg Cap-EC Refills(s) 0 Start Date: 02/06/22 Status: Ordered ergocalciferol 1.25 mg oral capsule (20 sources) Provitamin D2 Compound Start: 10-27-2024 End: 01-19-2025 take 1 capsule by mouth two times weekly ergocalciferol (Vitamin D2) 1.25 MG (95909 UT) capsule Indications: Vitamin D deficiency, unspecified Take 1 capsule (1.25 mg) by mouth 2 (two) times a week 24 capsule 1 10/27/2024 01/19/2025 Active Start: 04-06-2024 End: 10-27-2024 take 1 capsule by mouth every week ergocalciferol (Vitamin D2) 1.25 MG (00801 UT) capsule Indications: Vitamin D deficiency, unspecified TAKE 1 CAPSULE BY MOUTH ONE TIME PER WEEK 12 capsule 1 04/06/2024 10/27/2024 Discontinued (Reorder) fluconazole 150 mg oral tablet (16 sources) Azole Antifungal Start: 08-27-2024 fluconazole ( [...] Discontinued (Reorder) furosemide 40 mg oral tablet (20 sources) Loop Diuretic Start: 09-22-2024 End: 01-25-2025 take 1 tablet by mouth once daily furosemide (Lasix) 40 MG tablet Indications: Bilateral lower extremity edema Take 1 tablet (40 mg) by mouth Daily 90 tablet 1 10/27/2024 01/25/2025 Active Start: 07-07-2024 End: 01-25-2025 take 1 tablet by mouth once daily as needed for edema furosemide (Lasix) 20 MG tablet Indications: Bilateral lower extremity edema Take 1 tablet (20 mg) by mouth Daily as needed (edema) Take in the afternoon as needed 90 tablet 1 10/27/2024 01/25/2025 Active Start: 04-06-2024 End: 07-05-2024 take 1 [...] (25 mg) before bedtime. 180 tablet 1 10/27/2024 01/25/2025 Active sodium hypochlorite 2.5 mg/ml topical solution (7 sources) Start: 09-24-2024 HySept 0.25 % external [...] Active ammonium lactate 120 mg/ml topical lotion (14 sources) Start: 07-22-2024 ammonium lacta te (Lac-Hydrin) 12 % lotion APPLY TO BILATERAL FEET EVERY DAY 07/22/2024 Active lisinopril 20 mg oral tablet (20 sources) Angiotensin Converting Enzyme Inhibitor Start: 02-06-2022 End: 01-25-2025 take 1 tablet by mouth once daily lisinopril 20 MG tablet Indications: Primary hypertension (CMS/HCC) Take 1 tablet (20 mg) by mouth Daily 90 tablet 1 10/27/2024 01/25/2025 Active meloxicam (5 sources) Nonsteroidal Anti-inflammatory Drug Start: 02-06-2022 meloxicam Daily, Refills(s) 0 Start Date: 02/06/22 Status: Ordered take 1 tablet by [facility] every twenty-four hours Meloxicam 7.5 MG 1 [...] Active naloxone hydrochloride 40 mg/ml nasal spray (17 sources) Opioid Antagonist Start: 07-04-2024 naloxone (Narcan) 4 mg/0.1 mL nasal spray Administer 4 mg into affected nostril(s) if needed 07/04/2024 Active 24 hr nicotine 0.875 mg/hr transdermal system (15 sources) Cholinergic Nicotinic Agonist Start: 07-14-2024 End: 08-13-2024 nicotine (Nicoderm, Step 1) 21 MG/24HR patch Indications: Encounter for smoking cessation counseling Place 1 patch over 24 hours on the skin 1 (one) time each day at the same time May either leave patch on 24 hours, or apply in the morning and take of at bedtime, rotate sites 30 patch 1 07/14/2024 Active omeprazole 20 mg delayed release oral capsule (20 sources) Proton Pump Inhibitor Start: 12-25-2023 End: 01-25-2025 take 1 capsule by mouth before mealtime omeprazole (PriLOSEC) [address] capsule Indications: Gastro-esophageal reflux disease without esophagitis Take 1 capsule (20 mg) by mouth in the morning. Take before meals. 90 capsule 1 10/27/2024 01/25/2025 Active take 1 capsule by mouth before m ealtime omeprazole (PriLOSEC) [address] capsule Take 20 mg by mouth in the morning. Take before meals. Do not crush or chew. . 0 Active Oxygen (20 sources) oxygen (O2) gas Inhale 2 L/min continuously via nasal canula Active potassium chloride 10 meq extended release oral capsule (20 sources) Start: 02-06-2022 End: 01-25-2025 take 1 capsule by mouth once daily in the morning potassium chloride ER (Micro-K) 10 MEQ ER capsule Indications: Bilateral lower extremity edema Take 1 capsule (10 mEq) by mouth Daily Take 1 capsule (10 mEq) by mouth in the morning. 90 capsule 1 10/27/2024 01/25/2025 Active take 1 tablet by vandana th every twenty-four hours Potassium Chloride ER 10 MEQ 1 tablet with food Orally Once a day Active predniSONE 10 mg oral tablet (4 sources) Start: 12-05-2024 predniSONE (De ltasone) 10 MG tablet 4 TABS X3 DAYS, 3TABS X3 DAYS, 2 TABS X3 DAYS, 1 TAB X3 DAYS, 1/2 TAB X4 DAYS 12/05/2024 Active pregabalin 150 mg oral capsule (20 [...] tablet (20 sources) HMG-CoA Reductase Inhibitor Start: 12-19-2024 End: 03-19-2025 take 1 tablet by mouth at bedtime simvastatin (Zocor) 10 MG tablet Indications: Hyperlipidemia, unspecified Take 1 tablet (10 mg) by mouth at bedtime 90 tablet 1 12/19/2024 03/19/2025 Active Start: 04-06-2024 End: 11-25-2024 take 1 tablet by mouth at bedtime simvastatin (Zocor) 10 MG tablet Indications: Hyperlipidemia, unspecified (CMS/HCC) Take 1 tablet (10 mg) by mouth at bedtime 90 tablet 1 08/27/2024 Active Start: 06-15-2023 End: 09-13-2023 take 1 [...] Active Tirzepatide (Mounjaro) 15 MG/0.5ML solution auto-injector (17 sources) Start: 07-07-2024 inject 15 mg by subcutaneous injection every week Tirzepatide (Mounjaro) 15 MG/0.5ML solution auto-injector Indications: Type 2 diabetes mellitus with other circulatory complications (HCC) INJECT 15MG SUBCUTANEOUSLY ONCE A WEEK 6 [...] (20 sources) Partial Cholinergic Nicotinic Agonist Start: 12-20-19 End: 02-18-20 take 1 tablet by mouth in the morning varenicline (Chantix) 1 MG tablet Indications: Tobacco user , Encounter for smoking cessation counseling Take 1 tablet (1 mg) by mouth in the morning and 1 tablet (1 mg) before bedtime. Take with full glass of water. 60 tablet 1 12/19/2024 02/17/2025 Active Start: 08-27-2024 End: 10-27-2024 take 1 tablet by mouth in the [...] Drug Class(es) Dates Sig (Normalized) Sig (Original) cephalexin 500 mg oral capsule (9 sources) Cephalosporin Antibacterial Start: 2024 End: 10-27-2024 cephalexin (Keflex) 500 MG capsule 2024 10/27/2024 Discontinued (Therapy completed) Glucose Blood (ACCU-CHEK JAQUI PLUS ) (14 [...] the skin Daily 07/14/2024 Discontinued (Therapy completed) nortriptyline 50 mg oral capsule (16 sources) Tricyclic Antidepressant End: 08-27-2024 take 1 capsule by mouth once daily nortriptyline (Pamelor) 50 MG capsule Take 1 capsule by mouth Daily 08/27/2024 Discontinued (Therapy completed) sulfamethoxazole 800 mg / trimethoprim 160 mg oral tablet (8 sources) Dihydrofolate Reductase Inhibitor Antibacterial, Sulfonamide Antimicrobial Start: 08-27-2024 End: 10-27-2024 sulfamethoxazole-t rimethoprim (Bactrim DS) 800-160 MG per tablet 08/27/2024 [...] 10-09-2022 02-06-2022 Chronic Chronic ulcer of skin (17 sources) Non-pressure chronic ulcer of other part of right lower leg limited to breakdown of skin; Translations: [Non-pressure chronic ulcer of other part of left lower leg limited to breakdown of skin] Onset: 09-01-2022 08-27-2024 Chronic Congestive heart failure; nonhypertensive (20 sources) Chronic diastolic heart failure; Translations: [Chronic [...] [Essential (primary) hypertension] Onset: 11-23-2022 02-06-2022 Chronic Fever of unknown origin (6 sources) Fever; Translations: [Fever, unspecified] Onset: 12-09-2024 12-09-2024 Episodic Genitourinary symptoms and ill-defined conditions (20 [...] COLITIS UNS] Onset: 10-09-2022 Episodic Nutritional deficiencies (14 sources) Vitamin D deficiency; Translations: [Vitamin D deficiency, unspecified] Onset: 10-27-2024 05-27-2024 Chronic Osteoarthritis (20 sources) Arthritis; Translations: [Unspecified osteoarthritis, unspecified site] Onset: 04-20-2022 02-06-2022 Chronic Other aftercare (1 source) Other emt intermediate (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 therapy; Translations: [OTH CUSTODIAL CURRENT DRUG THERAPY] Onset: 12-05-2022 Episodic Other aftercare (1 source) shelter (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; Translations: [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 AND 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 CURRENT USE OF ASPIRIN] Onset: 12-05-2022 Episodic Other aftercare (3 sources) shelter (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; Translations: [CUSTODIAL CURRENT USE OF INSULIN] Onset: 12-05-2022 Episodic Other aftercare (4 sources) Long-term current use of insulin; 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: [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] 05-27-2024 Episodic Other and ill-defined heart disease (20 [...] Chronic Other diseases of veins and lymphatics (11 sources) Chronic peripheral venous hypertension; Translations: [Chronic venous hypertension (idiopathic) with ulcer of bilateral lower extremity] Onset: 08-27-2024 08-27-2024 Chronic Other diseases of veins and lymphatics (4 sources) Stasis dermatitis and venous ulcer of right lower extremity due to chronic peripheral venous hypertension; Translations: [Chronic venous hypertension (idiopathic) with ulcer and inflammation of right lower extremity] Onset: 12-09-2024 12-09-2024 Chronic Other diseases of veins and lymphatics [...] Chronic Other nutritional; endocrine; and metabolic disorders (18 sources) Body mass index 40+ - severely [...] nutritional; endocrine; and metabolic disorders (20 sources) Obesity caused by energy imbalance; Translations: [...] 09-01-2022 Episodic Residual codes; unclassified (20 sources) Tobacco user; Translations: [Tobacco use] Onset: 09-17-2023 Resolved: 10-27-2024 09-17-2023 Episodic Skin and subcutaneous tissue infections (10 sources) Cellulitis of right lower limb; Translations: [Cutaneous abscess of left axilla] Onset: 07-18-2022 Episodic Substance-related disorders (16 sources) Nicotine dependence; Translations: [Nicotine dependence, unspecified, uncomplicated] Onset: 02-06-2022 Chronic Comment on above: Added secondary to d ocumentation in Social History. Unclassified (1 source) CUSTODIAL INJECT NONINSULN ANTIDIAB; Translations: [CUSTODIAL INJECT NONINSULN ANTIDIAB] Onset: 12-05-2022 Unclassified (3 sources) CONTACT W/AND (SUSP) EXPOS COVID-19; Translations: [CONTACT W/AND (SUSP) EXPOS COVID-19] Onset: 07-08-2022 Unclassified (3 sources) LOW BACK PAIN, UNSPECIFIED; Translations: [LOW BACK PAIN, UNSPECIFIED] Onset: 12-27-2021 Unclassified (1 source) Obesity, class 3; Translations: [Obesity, class 3] Onset: 11-14-2023 Viral infection (1 source) COVID-19; Translations: [COVID-19] [...] Translations: [Candidiasis of vagina] Onset: 07-26-2022 Episodic Nutritional deficiencies (16 sources) Vitamin deficiency; Translations: [Vitamin deficiency, unspecified] Onset: 08-27-2024 08-27-2024 Episodic Other aftercare (14 sources) Long-term current use of inhaled steroid; Translations: [shelter (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 inhaled steroids] Onset: 08-27-2024 08-27-2024 Episodic Other and unspecified benign neoplasm (18 sources) Myelolipoma of adrenal gland; Translations: [Benign [...] edema] Onset: 09-17-2023 Resolved: 09-17-2023 09-17-2023 Episodic Spondylosis; intervertebral disc disorders; other back [...] 3; Translations: [Obesity, class 3] Onset: 08-08-2024 Varicose veins of lower extremity (20 sources) Varicose veins of right lower extremity with ulcer of unspecified site; Translations: [Varicose veins of lower extremities with ulcer] Onset: 06-19-2024 Resolved: 12-09-2024 07-14-2024 Episodic Results Test Name Value Interpretation Reference Range Facility 36 10-21-2024 36 Regarding lab results from 10/08/2024: MD Mickie Merritt MA Lipids, ALT AST, and BMP are normal. HbA1c was not performed. Continue current management. LM on patient's VM. Normal [facility] Glucose (Bld) [Mass/Vol]Orde red By: Mica Sauceda on 10-08-2024 Glucose Blood, POC 97 mg/dL [facility] Laboratory - Hematology and Cell countson 10-08-2024 HbA1c (Bld) [Mass fraction] 7.4 % [facility] No Panel InformationOrdered By: Mica Sauceda on 10-08-2024 [facility] TBH UA (CLEAN/CATCH) MICROSC OPIC IF INDICATEon 10-08-2024 [facility]IN [facility]INE [facility] NEGATIVE [facility] Clarity (U) CLEAR CLEAR [facility] Color (U) YELLOW YELLOW [facility] GLUCOSE URINE UA Negative NEGATIVE mg/dL [facility] Interpretation and review of laboratory results Abnormal [facility] Ketones Ql (U) Negative NEGATIVE mg/dL [facility] Leukocyte esterase Test strip Ql (U) Negative NEGATIVE [facility] NITRITE URINE Negative NEGATIVE [facility] pH (U) 5.5 [pH] 5.0 - 9.0 [facility] Protein (U) [Mass/Vol] 30 mg/dL Abnormal NEG/TRACE NO [facility] SPECIFIC GRAVITY URINE >=1.030 Abnormal 1.005 - 1.025 [facility] URINE MICROSCOPIC INDICATED YES [facility] UROBILINOGEN URINE 1.0 EU/dL 0.2 - 1.0 EU/dL [facility] ALL CBC WITH AUTO DIFFon BASOPHILS ABSOLUTE AUTO 0.1 [facility] Basophils/100 WBC (Bld) 0.5 % 0.2 - 2.0 % [facility] Eosinophils/100 WBC (Bld) 1.9 % 0.9 - 7.0 % [facility] Erythrocyte distribution width (RBC) [Ratio] 14.6 % 11.0 - 15.0 % [facility] Hematocrit (Bld) [Volume fraction] 50.9 % High 36.0 - 48.0 % [facility] Hemoglobin (Bld) [Mass/Vol] 16.1 g/dL High 12.0 - 16.0 g/dL [facility] IMMATURE GRANULOCYTES ABS AUTO 0.04 High [facility] Immature granulocytes/100 WBC (Bld) 0.3 % 0.0 - 0.5 % [facility] Interpretation and review of laboratory results Abnormal [facility] LYMPHOCYTES ABSOLUTE AUTO 3.2 [facility] Lymphocytes/100 WBC (Bld) 25.1 % 20.5 - 60.0 % [facility] MCH (RBC) [Entitic mass] 29.2 pg 26.7 - 34.0 pg [facility] MCHC (RBC) [Mass/Vol] 31.6 g/dL 29.9 - 35.2 g/dL [facility] MCV (RBC) [Entitic vol] 92.2 fL 81.0 - 99.0 fL [facility] MONOCYTES ABSOLUTE AUTO 0.7 [facility] Monocytes/100 WBC (Bld) 5.2 % 1.7 - 12.0 % [facility] NEUTROPHILS ABSOLUTE AUTO 8.6 High [facility] Neutrophils/100 WBC (Bld) 67 % 43.0 - 75.0 % [facility] Platelet mean volume (Bld) [Entitic vol] 12.8 fL 9.5 - 13.5 fL [facility] TBH EO # 0.2 [facility] TB PLT 122 Low [facility] TB RBC 5.52 High [facility] TB WBC 12.8 High [facility] Office Visiton 08-08-2024 Follow-up visit [id number] Mitzi Macias 1970 F Date Provider Department Center 08/08/2024 [id number] BRIDGES MARIO Villalobos [facility] Family History Problem Relation Age of Onset Heart attack Paternal Grandmother Family Status - Relation Status Age at Paternal Grandmother Level of Service:[address] [place] OFFICE/OUTPATIENT ESTABLISHED MOD MDM 30 MIN Reason for Visit and Comments: Congestive Heart Failure [127] - Denies chest pain, SOB, and palpitations. Hypertension [785811] Hyperlipidemia [182] LVH [Other] Edema [[id number]] - Denies worsening edema. She sees wound care for RLE ulcer. She was seeing the vein specialists here in town but they are moving to [place] in a few weeks. Normal [facility] Glucose (Bld) [Mass/Vol]Orde red By: Mica Sauceda on 05-27-2024 Glucose Blood, POC 158 mg/dL [facility] - Hematology and Cell countson 05-27-2024 HbA1c (Bld) [Mass fraction] 9.2 % [facility] No Panel InformationOrdered By: Mica Sauceda on 05-27-2024 [facility] CREATININEon 05-12-2024 Creatinine [Mass/Vol] 0.92 mg/dL 0.55 - 1.02 mg/dL [facility] GFR/1.73 sq M.predicted CKD-EPI (S/P/Bld) [Vol rate/Area] >60 >=60 mL/min/1.73m 2 [facility] EGFR-NON AF MALAWIAN >60 >=60 mL/min/1.73m 2 [facility] Healthcare Office Visiton 11-14-2023 Follow-up visit [id number] Mitzi Macias 1970 F Date Provider Department Center 11/14/2023 BHARAT NICOLE [facility] Family History Problem Relation Age of Onset Heart attack Paternal Grandmother Family Status - Relation Status Age at Paternal Grandmother Level of Service:[address] [place] OFFICE/OUTPATIENT NEW LOW MDM 30 MINUTES Normal [facility] CBC AUTO DIFFon 12-06-2022 BASO # 0.0 103/ul Normal 0.0-0.1 [facility] Comment on above: Performed By: #### C BC #### [facility] [facility] [address] [place] [address] Dr. Ashlie Hills Basophils/100 WBC (Bld) 0.1 % Critically low 0.2-2.0 [facility] Comment on above: Performed By: #### C BC #### [facility] [address] [place] [address] Dr. Ashlie Hills EO # 0.0 103/ul Normal 0.0-0.7 [facility] Comment on above: Performed By: #### C BC #### [facility] [address] [place] [address] Dr. Ashlie Hills Eosinophils/100 WBC (Bld) 0.0 % Critically low 0.9-7.0 [facility] Comment on above: Performed By: #### C BC #### [facility] [address] [place] [address] Dr. Ashlie Hills Erythrocyte distribution width (RBC) [Ratio] 14.9 % Normal 11.0-15.0 [facility] Comment on above: Performed By: #### C BC #### [facility] [address] [place] [address] Dr. Ashlie Hills Hematocrit (Bld) [Volume fraction] 46.2 % Normal 36.0-48.0 [facility] Comment on above: Performed By: #### C BC #### [facility] [address] [place] [address] Dr. Ashlie Hills Hemoglobin (Bld) [Mass/Vol] 14.7 g/dL Normal 12.0-16.0 [facility] Comment on above: Performed By: #### C BC #### [facility] [address] [place] [address] Dr. Ashlie Hills IG # 0.06 10e3/ul Critically high 0.00-0.03 [facility] Comment on above: Performed By: #### C BC #### [facility] [address] [place] [address] Dr. Ashlie Hills IG % 0.4 % Normal 0.0-0.5 [facility] Comment on above: Performed By: #### C BC #### [facility] [address] [place] [address] Dr. Ashlie Hills LYMPH # 1.3 103/ul Normal 1.2-3.8 [facility] Comment on above: Performed By: #### C BC #### [facility] [address] [place] [address] Dr. Ashlie Hills Lymphocytes/100 WBC (Bld) 9.4 % Critically low 20.5-60.0 [facility] Comment on above: Performed By: #### C BC #### [facility] [address] [place] [address] Dr. Ashlie Hills MANUAL DIFF REQ NO Normal [facility] Comment on above: Performed By: #### C BC #### [facility] [address] [place] [address] Dr. Ashlie Hills MCH (RBC) [Entitic mass] 28.4 pg Normal 26.7-34.0 [facility] Comment on above: Performed By: #### C BC #### [facility] [address] [place] [address] Dr. Ashlie Hills MCHC (RBC) [Mass/Vol] 31.8 g/dL Normal 29.9-35.2 [facility] Comment on above: Performed By: #### C BC #### [facility] [address] [place] [address] Dr. Ashlie Hills MCV (RBC) [Entitic vol] 89.4 fL Normal 81.0-99.0 [facility] Comment on above: Performed By: #### C BC #### [facility] [address] [place] [address] Dr. Aslhie Hills MONO # 0.5 103/ul Normal 0.3-0.8 [facility] Comment on above: Performed By: #### C BC #### [facility] [address] [place] [address] Dr. Ashlie Hills Monocytes/100 WBC (Bld) 3.4 % Normal 1.7-12.0 [facility] Comment on above: Performed By: #### C BC #### [facility] [address] [place] [address] Dr. Ashlie Hills NEUT # 11.8 103/ul Critically high 1.4-6.5 [facility] Comment on above: Performed By: #### C BC #### [facility] [address] [place] [address] Dr. Ashlie Hills Neutrophils/100 WBC (Bld) 86.7 % Critically high 43.0-75.0 [facility] Comment on above: Performed By: #### C BC #### [facility] [address] [place] [address] Dr. Ashlie Hills Platelet mean volume (Bld) [Entitic vol] 12.6 fL Normal 9.5-13.5 [facility] Comment on above: Performed By: #### C BC #### [facility] [address] [place] [address] Dr. Ashlie Hills PLT 133 103/ul Critically low 150-450 [facility] Comment on above: Performed By: #### C BC #### [facility] [address] [place] [address] Dr. Ashlie Hills RBC 5.17 106/ul Normal 4.20-5.40 [facility] Comment on above: Performed By: #### C BC #### [facility] [address] [place] [address] Dr. Ashlie Hlils WBC 13.6 103/ul Critically high 4.0-11.0 [facility] Comment on above: Performed By: #### C BC #### [facility] [address] [place] [address] Dr. Ashlie Hills MAGNESIUMon 12-06-2022 Magnesium [Mass/Vol] 2.2 mg/dL Normal 1.8-2.4 [facility] Comment on above: Performed By: #### I NFLUAB #### [facility] [address] [place] [address] Dr. Ashlie Hills POINT OF CARE GLUCOSEon 11-08 Glucose [Mass/Vol] 340 mg/dL Critically high 74-106 [facility] Comment on above: Performed By: #### P OCGLUC #### [facility] [address] [place] [address] Dr. Ashlie Hills Glucose [Mass/Vol] 276 mg/dL Critically high 74-106 [facility] Comment on above: Performed By: #### C BC #### [facility] [address] [place] [address] Dr. Ashlie Hills Glucose [Mass/Vol] 333 mg/dL Critically high 74-106 [facility] Comment on above: Performed By: #### C BC #### [facility] [address] [place] [address] Dr. Ashlie Hills PROF CHEM 8 (BAS METB)on Anion gap [Moles/Vol] 10.9 mmol/L Normal [facility] Comment on above: Performed By: #### I NFLUAB #### [facility] [address] [place] [address] Dr. Ashlie Hills Calcium [Mass/Vol] 9.3 mg/dL Normal 8.5-10.1 [facility] Comment on above: Performed By: #### I NFLUAB #### [facility] [address] [place] [address] Dr. Ashlie Hills Chloride [Moles/Vol] 103 mmol/L Normal 98-107 [facility] Comment on above: Performed By: #### I NFLUAB #### [facility] [address] [place] [address] Dr. Ashlie Hills CO2 [Moles/Vol] 31.2 mmol/L Normal 21.0-32.0 [facility] Comment on above: Performed By: #### I NFLUAB #### [facility] [address] [place] [address] Dr. Ashlie Hills Creatinine [Mass/Vol] 0.96 mg/dL Normal 0.55-1.02 [facility] Comment on above: Performed By: #### I NFLUAB #### [facility] [address] [place] [address] Dr. Ashlie Hills EGFR-AF MALAWIAN >60 Normal >=60 [facility] Comment on above: Performed By: #### I NFLUAB #### [facility] [address] [place] [address] Dr. Ashlie Hills EGFR-NON AF MALAWIAN >60 Normal >=60 [facility] Comment on above: Performed By: #### I NFLUAB #### [facility] [address] [place] [address] Dr. Ashlie Hills Glucose [Mass/Vol] 288 mg/dL Critically high 74-106 [facility] Comment on above: Performed By: #### I NFLUAB #### [facility] [address] [place] [address] Dr. Ashlie Hills Potassium [Moles/Vol] 5.1 mmol/L Normal 3.5-5.1 [facility] Comment on above: Performed By: #### I NFLUAB #### [facility] [address] [place] [address] Dr. Ashlie Hills Sodium [Moles/Vol] 140 mmol/L Normal 136-145 [facility] Comment on above: Performed By: #### I NFLUAB #### [facility] [address] [place] [address] Dr. Ashlie Hills Urea nitrogen [Mass/Vol] 30.0 mg/dL Critically high 7.0-18.0 [facility] Comment on above: Performed By: #### I NFLUAB #### [facility] [address] [place] [address] Dr. Ashlie Hills Urea nitrogen/Creatinine [Mass ratio] 31.2 mg/mg Normal [facility] Comment on above: Performed By: #### I NFLUAB #### [facility] [address] [place] [address] Dr. Ashlie Hills CBC AUTO DIFFon 12-05-2022 BASO # 0.0 103/ul Normal 0.0-0.1 [facility] Comment on above: Performed By: #### C BC #### [facility] [address] [place] [address] Dr. Ashlie Hills Basophils/100 WBC (Bld) 0.4 % Normal 0.2-2.0 [facility] Comment on above: Performed By: #### C BC #### [facility] [address] [place] [address] Dr. Ashlie Hills EO # 0.0 103/ul Normal 0.0-0.7 [facility] Comment on above: Performed By: #### C BC #### [facility] [address] [place] [address] Dr. Ashlie Hills Eosinophils/100 WBC (Bld) 0.0 % Critically low 0.9-7.0 [facility] Comment on above: Performed By: #### C BC #### [facility] [address] [place] [address] Dr. Ashlie Hills Erythrocyte distribution width (RBC) [Ratio] 14.8 % Normal 11.0-15.0 [facility] Comment on above: Performed By: #### C BC #### [facility] [address] [place] [address] Dr. Ashlie Hills Hematocrit (Bld) [Volume fraction] 49.9 % Critically high 36.0-48.0 [facility] Comment on above: Performed By: #### C BC #### [facility] [address] [place] [address] Dr. Ashile Hills Hemoglobin (Bld) [Mass/Vol] 15.7 g/dL Normal 12.0-16.0 [facility] Comment on above: Performed By: #### C BC #### [facility] [address] [address] [address] Ashlie Hills IG # 0.04 10e3/ul Critically high 0.00-0.03 [facility] Comment on above: Performed By: #### C BC #### [facility] [address] [place] [address] Dr. Ashlie Hills IG % 0.5 % Normal 0.0-0.5 [facility] Comment on above: Performed By: #### C BC #### [facility] [address] [place] [address] Dr. Ashlie Hills LYMPH # 1.1 103/ul Critically low 1.2-3.8 [facility] Comment on above: Performed By: #### C BC #### [facility] [address] [place] [address] Dr. Ashlie Hills Lymphocytes/100 WBC (Bld) 12.7 % Critically low 20.5-60.[address] [facility] Comment on above: Performed By: #### C BC #### [facility] [address] [place] [address] Dr. Ashlie Hills MANUAL DIFF REQ NO Normal [facility] Comment on above: Performed By: #### C BC #### [facility] [address] [place] [address] Dr. Ashlie Hills MCH (RBC) [Entitic mass] 28.1 pg Normal 26.7-34.0 [facility] Comment on above: Performed By: #### C BC #### [facility] [address] [place] [address] Dr. Ashlie Hills MCHC (RBC) [Mass/Vol] 31.5 g/dL Normal 29.9-35.2 [facility] Comment on above: Performed By: #### C BC #### [facility] [address] [place] [address] Dr. Ashlie Hills MCV (RBC) [Entitic vol] 89.3 fL Normal 81.0-99.0 [facility] Comment on above: Performed By: #### C BC #### [facility] [address] [place] [address] Dr. Ashlie Hills MONO # 0.1 103/ul Critically low 0.3-0.8 [facility] Comment on above: Performed By: #### C BC #### [facility] [address] [place] [address] Dr. Ashlie Hills Monocytes/100 WBC (Bld) 1.3 % Critically low 1.7-12.0 [facility] Comment on above: Performed By: #### C BC #### [facility] [address] [place] [address] Dr. Ashlie Hills NEUT # 7.2 103/ul Critically high 1.4-6.5 [facility] Comment on above: Performed By: #### C BC #### [facility] [address] [place] [address] Dr. Ashlie Hills Neutrophils/100 WBC (Bld) 85.1 % Critically high 43.0-75.0 [facility] Comment on above: Performed By: #### C BC #### [facility] [address] [place] [address] Dr. Ashlie Hills Platelet mean volume (Bld) [Entitic vol] 12.2 fL Normal 9.5-13.5 [facility] Comment on above: Performed By: #### C BC #### [facility] [address] [place] [address] Dr. Ashlie Hills PLT 116 103/ul Critically low 150-450 [facility] Comment on above: Performed By: #### C BC #### [facility] [address] [place] [address] Dr. Ashlie Hills RBC 5.59 106/ul Critically high 4.20-5.40 [facility] Comment on above: Performed By: #### C BC #### [facility] [address] [place], [place] [address] Dr. Ashlie Hills WBC 8.5 103/ul Normal 4.0-11.0 [facility] Comment on above: Performed By: #### C BC #### [facility] [address] [place], [place] [address] Dr. Ashlie Hills CTA CHEST WO W [...] HATTIE GOFF Date: 2022-12-05 01:52 Normal [facility] MAGNESIUMon 12-05-2022 Magnesium [Mass/Vol] 2.1 mg/dL Normal 1.8-2.4 [facility] Comment on above: Performed By: #### P OCGLUC #### [facility] [address] [address] [address] Ashlie Hills POINT OF CARE GLUCOSEon 11-08 Glucose [Mass/Vol] 293 mg/dL Critically high 74-106 [facility] Comment on above: Performed By: #### P OCGLUC #### [facility] [address] [address] [address] Ashlie Hills Glucose [Mass/Vol] 269 mg/dL Critically high -106 [facility] Comment on above: Performed By: #### P OCGLUC #### [facility] [address] [place] [address] Dr. Ashlie Hills Glucose [Mass/Vol] 223 mg/dL Critically high -106 [facility] Comment on above: Performed By: #### C VDAGS #### [facility] [address] [address] [address] Ashlie Hills PROF CHEM 8 (BAS METB)on Anion gap [Moles/Vol] 11.6 mmol/L Normal [facility] Comment on above: Performed By: #### P OCGLUC #### [facility] [address] [place] [address] Dr. Ashlie Hills Calcium [Mass/Vol] 9.2 mg/dL Normal 8.5-10.1 [facility] Comment on above: Performed By: #### P OCGLUC #### [facility] [address] [place] [address] Dr. Ashlie Hills Chloride [Moles/Vol] 102 mmol/L Normal 98-107 [facility] Comment on above: Performed By: #### P OCGLUC #### [facility] [address] [place] [address] Dr. Ashlie Hills CO2 [Moles/Vol] 28.7 mmol/L Normal 21.0-32.0 [facility] Comment on above: Performed By: #### P OCGLUC #### [facility] [address] [address] [address] Ashlie Hills Creatinine [Mass/Vol] 1.04 mg/dL Critically high 0.55-1.02 [facility] Comment on above: Performed By: #### P OCGLUC #### [facility] [address] [address] [address] Ashlie Hills EGFR-AF MALAWIAN >60 Normal >=60 [facility] Comment on above: Performed By: #### P OCGLUC #### [facility] [address] [address] [address] Ashlie Hills EGFR-NON AF MALAWIAN 56 mL/min/1.73m2 Critically low >=60 [facility] Comment on above: Performed By: #### P OCGLUC #### [facility] [address] [address] [address] Ashlie Hills Glucose [Mass/Vol] 231 mg/dL Critically high 74-106 [facility] Comment on above: Performed By: #### P OCGLUC #### [facility] [address] [address] [address] Ashlie Hills Potassium [Moles/Vol] 4.3 mmol/L Normal 3.5-5.1 [facility] Comment on above: Performed By: #### P OCGLUC #### [facility] [address] [address] [address] Ashlie Hills Sodium [Moles/Vol] 138 mmol/L Normal 136-145 [facility] Comment on above: Performed By: #### P OCGLUC #### [facility] [address] [address] [address] Ashlie Hilsl Urea nitrogen [Mass/Vol] 17.0 mg/dL Normal 7.0-18.0 [facility] Comment on above: Performed By: #### P OCGLUC #### [facility] [address] [address] [address] Ashlie Hills Urea nitrogen/Creatinine [Mass ratio] 16.3 mg/mg Normal [facility] Comment on above: Performed By: #### P OCGLUC #### [facility] [address] [address] [address] Ashlie Hills RESPIRATORY PANEL PLUSon Adenovirus Not detected Normal NOT DETECTED [facility] Comment on above: Performed By: #### C VDAGS #### [facility] [address] [place] [address] Dr. Ashlie Shaffer. Parapertusis Not detected Normal NOT DETECTED [facility] Comment on above: Performed By: #### C VDAGS #### [facility] [address] [place] [address] Dr. Ashlie Shaffer. Pertussis Not detected Normal NOT DETECTED [facility] Comment on above: Performed By: #### C VDAGS #### [facility] [address] [place] [address] Dr. Ashlie Hills Chlamydia Pneumoniae Not detected Normal NOT DETECTED [facility] Comment on above: Performed By: #### C VDAGS #### [facility] [address] [place] [address] Dr. Ashlie Hills Coronavirus 229E Not detected Normal NOT DETECTED [facility] Comment on above: Performed By: #### C VDAGS #### [facility] [address] [place] [address] Dr. Ashlie Hills Coronavirus HKU1 Not detected Normal NOT DETECTED [facility] Comment on above: Performed By: #### C VDAGS #### [facility] [address] [place] [address] Dr. Ashlie Hills Coronavirus NL63 Not detected Normal NOT DETECTED [facility] Comment on above: Performed By: #### C VDAGS #### [facility] [address] [place] [address] Dr. Ashlie Hills Coronavirus OC43 Not detected Normal NOT DETECTED [facility] Comment on above: Performed By: #### C VDAGS #### [facility] [address] [place] [address] Dr. Ashlie Hills Influenza A H1 Not detected Normal NOT DETECTED [facility] Comment on above: Performed By: #### C VDAGS #### [facility] [address] [place] [address] Dr. Ashlie Hills Influenza A H1 2009 Not detected Normal NOT DETECTED [facility] Comment on above: Performed By: #### C VDAGS #### [facility] [address] [place] [address] Dr. Ashlie Hills Influenza A H3 Not detected Normal NOT DETECTED [facility] Comment on above: Performed By: #### C VDAGS #### [facility] [address] [address] [address] Ashlie Hills Influenza B Not detected Normal NOT DETECTED [facility] Comment on above: Performed By: #### C VDAGS #### [facility] [address] [address] [address] Ashlie Hills Metapneumovirus Not detected Normal NOT DETECTED [facility] Comment on above: Performed By: #### C VDAGS #### [facility] [address] [place] [address] Dr. Ashlie Hills Mycoplas. Pneumoniae Not detected Normal NOT DETECTED [facility] Comment on above: Performed By: #### C VDAGS #### [facility] [address] [place] [address] Dr. Ashlie Hills Parainfluenza 1 Not detected Normal NOT DETECTED [facility] Comment on above: Performed By: #### C VDAGS #### [facility] [address] [place] [address] Dr. Ashlie Hills Parainfluenza 2 Not detected Normal NOT DETECTED [facility] Comment on above: Performed By: #### C VDAGS #### [facility] [address] [place] [address] Dr. Ashlie Hills Parainfluenza 3 Detected Abnormal NOT DETECTED The [facility] Comment on above: Performed By: #### C VDAGS #### [facility] [address] [place] [address] Dr. Ashlie Hills Parainfluenza 4 Not detected Normal NOT DETECTED [facility] Comment on above: Performed By: #### C VDAGS #### [facility] [address] [place] [address] Dr. Ashlie Hills Rhino/Enterovirus Not detected Normal NOT DETECTED [facility] Comment on above: Performed By: #### C VDAGS #### [facility] [address] [place] [address] Dr. Ashlie Hills RP2 Header 1 RESPIRATORY PANEL: VIRUSES Normal [facility] Comment on above: Performed By: #### C VDAGS #### [facility] [address] [place] [address] Dr. Ashlie Hills RP2 Header 2 RESPIRATORY PANEL: BACTERIA Normal [facility] Comment on above: Performed By: #### C VDAGS #### [facility] [address] [place] [address] Dr. Ashlie Hills RSV Not detected Normal NOT DETECTED [facility] Comment on above: Performed By: #### C VDAGS #### [facility] [address] [place] [address] Dr. Ashlie Hills SARS-CoV-2 (COVID-19) RNA MADDY+probe Ql (Unsp spec) Not detected Normal NOT DETECTED [facility] Comment on above: Performed By: #### C VDAGS #### [facility] Laboratory [address] [place] [address] Dr. Ashlie Hills XR CHEST 1 Von [...] by: MARYANNE POWER Date: 2022-12-04 22:23 Normal [facility] BLOOD GASES BTYon 12-04-2022 02 MODE ROOM AIR Normal [facility] Comment on above: Performed By: #### C BC #### [facility] [address] [place] [address] Dr. Ashlie Hills ALLENS TEST Positive Normal [facility] Comment on above: Performed By: #### C BC #### [facility] [address] [place] [address] Dr. Ashlie Hills Base excess Calc (Bld) [Moles/Vol] 5.4 mmol/L Critically high -2.0-2.0 [facility] Comment on above: Performed By: #### C BC #### [facility] [address] [place] [address] Dr. Ashlie Hills BIPAP PRESSURE Normal [facility] Comment on above: Performed By: #### C BC #### [facility] [address] [address] [address] Ashlie Hills CPAP [facility] Comment on above: Performed By: #### C BC #### [facility] [address] [place] [address] Dr. Ashlie Hills FIO2 [facility] Comment on above: Performed By: #### C BC #### [facility] [address] [place] [address] Dr. Ashlie Hills HCO3 (Bld) [Moles/Vol] 30.8 mmol/L Critically high 22.0-26 .0 [facility] Comment on above: Performed By: #### C BC #### [facility] [address] [place] [address] Dr. Ashlie Hills LPM [facility] Comment on above: Performed By: #### C BC #### [facility] [address] [place] [address] Dr. Ashlie Hills MINUTE VOLUME Normal [facility] Comment on above: Performed By: #### C BC #### [facility] [address] [place] [address] Dr. Ashlie Hills Oxygen (Bld) [Partial pressure] 46.3 mm[Hg] Critically low 80.0-100.0 [facility] Comment on above: Performed By: #### C BC #### [facility] [address] [place] [address] Dr. Ashlie Hills Oxygen saturation in Blood 83.9 % Critically low 95.0-100.0 [facility] Comment on above: Performed By: #### C BC #### [facility] [address] [place] [address] Dr. Ashlie Hills PCO2 54.2 mmHg Critically high 35.0-45.0 [facility] Comment on above: Performed By: #### C BC #### [facility] [address] [address] [address] Ashlie Hills PEEP [facility] Comment on above: Performed By: #### C BC #### [facility] [address] [address] [address] Ashlie Hills pH (Bld) 7.363 [pH] Normal 7.350-7.450 [facility] Comment on above: Performed By: #### C BC #### [facility] [address] [address] [address] Ashlie Hills [facility] Comment on above: Performed By: #### C BC #### [facility] [address] [place] [address] Dr. Ashlie Hills PS [facility] Comment on above: Performed By: #### C BC #### [facility] [address] [place] [address] Dr. Ashlie Hills PUNCTURE SITE LR [facility] Comment on above: Performed By: #### C BC #### [facility] [address] [place] [address] Dr. Ashlie Hills RATE [facility] Comment on above: Performed By: #### C BC #### [facility] [address] [place] [address] Dr. Ashlie Hills VENT MODE [facility] Comment on above: Performed By: #### C BC #### [facility] [address] [place] [address] Dr. Ashlie Hills [facility] Comment on above: Performed By: #### C BC #### [facility] [address] [place] [address] Dr. Ashlie Hills BNPon 12-04-2022 Natriuretic peptide B (Bld) [Mass/Vol] 76.0 pg/mL Normal <=900.0 [facility] Comment on above: Performed By: #### P OCGLUC #### [facility] [address] [place] [address] Dr. Ashlie Hills CBC AUTO DIFFon 12-04-2022 BASO # 0.1 103/ul Normal 0.0-0.1 [facility] Comment on above: Performed By: #### C BC #### [facility] [address] [place] [address] Dr. Ashlie Hills Basophils/100 WBC (Bld) 0.6 % Normal 0.2-2.0 [facility] Comment on above: Performed By: #### C BC #### [facility] [address] [place] [address] Dr. Ashlie Hills EO # 0.2 103/ul Normal 0.0-0.7 [facility] Comment on above: Performed By: #### C BC #### [facility] [address] [place] [address] Dr. Ashlie Hills Eosinophils/100 WBC (Bld) 1.9 % Normal 0.9-7.0 [facility] Comment on above: Performed By: #### C BC #### [facility] [address] [place] [address] Dr. Ashlie Hills Erythrocyte distribution width (RBC) [Ratio] 15.0 % Normal 11.0-15.0 [facility] Comment on above: Performed By: #### C BC #### [facility] [address] [place] [address] Dr. Ashlie Hills Hematocrit (Bld) [Volume fraction] 49.1 % Critically high 36.0-48.0 [facility] Comment on above: Performed By: #### C BC #### [facility] [address] [place] [address] Dr. Ashlie Hills Hemoglobin (Bld) [Mass/Vol] 15.6 g/dL Normal 12.0-16.0 [facility] Comment on above: Performed By: #### C BC #### [facility] [address] [place] [address] Dr. Ashlie Hills IG # 0.02 10e3/ul Normal 0.00-0.03 [facility] Comment on above: Performed By: #### C BC #### [facility] [address] [place] [address] Dr. Ashlie Hills IG % 0.2 % Normal 0.0-0.5 [facility] Comment on above: Performed By: #### C BC #### [facility] [address] [place] [address] Dr. Ashlie Hills LYMPH # 2.8 103/ul Normal 1.2-3.8 [facility] Comment on above: Performed By: #### C BC #### [facility] [address] [place] [address] Dr. Ashlie Hills Lymphocytes/100 WBC (Bld) 29.9 % Normal 20.5-60.0 [facility] Comment on above: Performed By: #### C BC #### [facility] [address] [place] [address] Dr. Ashlie Hills MANUAL DIFF REQ NO Normal [facility] Comment on above: Performed By: #### C BC #### [facility] [address] [place] [address] Dr. Ashlie Hills MCH (RBC) [Entitic mass] 28.5 pg Normal 26.7-34.0 [facility] Comment on above: Performed By: #### C BC #### [facility] [address] [place] [address] Dr. Ashlie Hills MCHC (RBC) [Mass/Vol] 31.8 g/dL Normal 29.9-35.2 [facility] Comment on above: Performed By: #### C BC #### [facility] [address] [place] [address] Dr. Ashlie Hills MCV (RBC) [Entitic vol] 89.8 fL Normal 81.0-99.0 [facility] Comment on above: Performed By: #### C BC #### [facility] [address] [place] [address] Dr. Ashlie Hills MONO # 1.0 103/ul Critically high 0.3-0.8 [facility] Comment on above: Performed By: #### C BC #### [facility] [address] [place] [address] Dr. Ashlie Hills Monocytes/100 WBC (Bld) 10.6 % Normal 1.7-12.0 [facility] Comment on above: Performed By: #### C BC #### [facility] [address] [place] [address] Dr. Ashlie Hills NEUT # 5.3 103/ul Normal 1.4-6.5 [facility] Comment on above: Performed By: #### C BC #### [facility] [address] [place] [address] Dr. Ashlie Hills Neutrophils/100 WBC (Bld) 56.8 % Normal 43.0-75.0 [facility] Comment on above: Performed By: #### C BC #### [facility] [address] [place] [address] Dr. Ashlie Hills Platelet mean volume (Bld) [Entitic vol] 12.5 fL Normal 9.5-13.5 [facility] Comment on above: Performed By: #### C BC #### [facility] [address] [place] [address] Dr. Ashlie Hills PLT 109 103/ul Critically low 150-450 [facility] Comment on above: Performed By: #### C BC #### [facility] [address] [place] [address] Dr. Ashlie Hills RBC 5.47 106/ul Critically high 4.20-5.40 [facility] Comment on above: Performed By: #### C BC #### [facility] [address] [place] [address] Dr. Ashlie Hills WBC 9.4 103/ul Normal 4.0-11.0 [facility] Comment on above: Performed By: #### C BC #### [facility] [address] [place] [address] Dr. Ashlie Hills PROF 14(COMP METB)on 023 Albumin [Mass/Vol] 2.9 g/dL Critically low 3.4-5.0 [facility] Comment on above: Performed By: #### C BC #### [facility] [address] [place] [address] Dr. Ashlie Hills Albumin/Globulin [Mass ratio] 0.6 {ratio} Normal [facility] Comment on above: Performed By: #### C BC #### [facility] [address] [place] [address] Dr. Ashlie Hills ALP [Catalytic activity/Vol] 64 U/L Normal 46-116 [facility] Comment on above: Performed By: #### C BC #### [facility] [address] [place] [address] Dr. Ashlie Hills ALT [Catalytic activity/Vol] 16 U/L Normal 14-59 [facility] Comment on above: Performed By: #### C BC #### [facility] [address] [place] [address] Dr. Ashlie Hills Anion gap [Moles/Vol] 9.6 mmol/L Normal [facility] Comment on above: Performed By: #### C BC #### [facility] [address] [place] [address] Dr. Ashlie Hills AST [Catalytic activity/Vol] 16 U/L Normal 15-37 [facility] Comment on above: Performed By: #### C BC #### [facility] [address] [place] [address] Dr. Ashlie Hills Bilirubin [Mass/Vol] 0.5 mg/dL Normal 0.2-1.0 [facility] Comment on above: Performed By: #### C BC #### [facility] [address] [place] [address] Dr. Ashlie Hills Calcium [Mass/Vol] 8.7 mg/dL Normal 8.5-10.1 [facility] Comment on above: Performed By: #### C BC #### [facility] [address] [place] [address] Dr. Ashlie Hills Chloride [Moles/Vol] 103 mmol/L Normal 98-107 [facility] Comment on above: Performed By: #### C BC #### [facility] [address] [place] [address] Dr. Ashlie Hills CO2 [Moles/Vol] 30.7 mmol/L Normal 21.0-32.0 [facility] Comment on above: Performed By: #### C BC #### [facility] [address] [address] [address] Ashlie Hills Creatinine [Mass/Vol] 0.96 mg/dL Normal 0.55-1.02 [facility] Comment on above: Performed By: #### C BC #### [facility] [address] [address] [address] Ashlie Hills EGFR-AF MALAWIAN >60 Normal >=60 [facility] Comment on above: Performed By: #### C BC #### [facility] [address] [place] [address] Dr. Ashlie Hilsl EGFR-NON AF MALAWIAN >60 Normal >=60 [facility] Comment on above: Performed By: #### C BC #### [facility] [address] [place] [address] Dr. Ashlie Hills Globulin (S) [Mass/Vol] 4.7 g/dL Normal [facility] Comment on above: Performed By: #### C BC #### [facility] [address] [place] [address] Dr. Ashlie Hills Glucose [Mass/Vol] 170 mg/dL Critically high 74-106 [facility] Comment on above: Performed By: #### C BC #### [facility] [address] [place] [address] Dr. Ashlie Hills Potassium [Moles/Vol] 4.3 mmol/L Normal 3.5-5.[address] [facility] Comment on above: Performed By: #### C BC #### [facility] [address] [place] [address] Dr. Ashlie Hills Protein [Mass/Vol] 7.6 g/dL Normal 6.4-8.2 [facility] Comment on above: Performed By: #### C BC #### [facility] [address] [place] [address] Dr. Ashlie Hills Sodium [Moles/Vol] 139 mmol/L Normal 136-145 [facility] Comment on above: Performed By: #### C BC #### [facility] [address] [place] [address] Dr. Ashlie Hills Urea nitrogen [Mass/Vol] 16.0 mg/dL Normal 7.0-18.0 [facility] Comment on above: Performed By: #### C BC #### [facility] [address] [place] [address] Dr. Ashlie Hills Urea nitrogen/Creatinine [Mass ratio] 16.7 mg/mg Normal [facility] Comment on above: Performed By: #### C BC #### [facility] [address] [place] [address] Dr. Ashlie Hills SYMPTOMATIC COVID-19 ANTIGEN on 12-04-2022 EUA Statement SEE BELOW Normal [facility] Comment on above: Result Comment: This [...] By: #### C VDAGS #### [facility] [address] [place] [address] Dr. Ashlie Hills SARS-CoV-2 (COVID-19) RNA MADDY+probe Ql (Unsp spec) Negative Normal NEGATIVE [facility] Comment on above: Performed By: #### C VDAGS #### [facility] [address] [place] [address] Dr. Ashlie Hills TROPONIN, HIGH SENSITIVITYon 12-04-2022 HSTROP 8.9 pg/mL Normal 4.0-51.3 [facility] Comment on above: Result Comment: CUT- OFF POINTS HAVE BEEN ESTABLISHED BASED ON THE FOURTH UNIVERSAL DEFINITIONS OF MYOCARDIAL INFARCTION. THE UPPER REFERENCE LIMIT (URL) OF TROPONIN, DEFINED THE 99TH PERCENTILE OF cTnI DISTRIBUTION IN A REFERENCE POPULATION, HAS BEEN CONFIRMED THE DECISION THRESHOLD FOR [place] DIAGNOSIS. Performed By: #### P OCGLUC #### [facility] [address] [place] [address] Dr. Ashlie Hills MICROALBUMIN, RAND URon - mALB 35.8 mg/dL Critically high <=30.0 [facility] Comment on above: Performed By: #### C VDAGS #### [facility] [address] [place] [address] Dr. Ashlie Hills UA RANDOM W/MICROSCOPICon BACTERIA NONE SEEN Normal NONE SEEN [facility] Comment on above: Performed By: #### C VDAGS #### [facility] [address] [place] [address] Dr. Ashlie Hills Bilirubin Ql (U) Negative Normal NEGATIVE [facility] Comment on above: Performed By: #### C VDAGS #### [facility] [address] [place] [address] Dr. Ashlie Hills CAST SEEN Abnormal NONE SEEN [facility] Comment on above: Performed By: #### C VDAGS #### [facility] [address] [place] [address] Dr. Ashlie Hills Clarity (U) CLEAR Normal CLEAR [facility] Comment on above: Performed By: #### C VDAGS #### [facility] [address] [place] [address] Dr. Ashlie Hills Color (U) YELLOW Normal YELLOW [facility] Comment on above: Performed By: #### C VDAGS #### [facility] [address] [place] [address] Dr. Ashlie Hills Crystals LM Nom (Urine sed) NONE SEEN Normal NONE SEEN [facility] Comment on above: Performed By: #### C VDAGS #### [facility] [address] [place] [address] Dr. Ashlie Hills Epithelial cells LM Ql (Urine sed) MODERATE Abnormal NONE SEEN /RARE [facility] Comment on above: Performed By: #### C VDAGS #### [facility] [address] [address] [address] Ashlie Hills Glucose Ql (U) Negative Normal NEGATIVE [facility] Comment on above: Performed By: #### C VDAGS #### [facility] [address] [place] [address] Dr. Ashlie Hills Hemoglobin Ql (U) TRACE-INTACT Abnormal NEGATIVE [facility] Comment on above: Performed By: #### C VDAGS #### [facility] [address] [place] [address] Dr. Ashlie Hills Ketones Ql (U) Negative Normal NEGATIVE [facility] Comment on above: Performed By: #### C VDAGS #### [facility] [address] [place] [address] Dr. Ashlie Hills LEUKOCYTES Negative Normal NEGATIVE [facility] Comment on above: Performed By: #### C VDAGS #### [facility] [address] [place] [address] Dr. Ashlie Hills MUCOUS NONE SEEN Normal NONE SEEN [facility] Comment on above: Performed By: #### C VDAGS #### [facility] [address] [place] [address] Dr. Ashlie Hills Nitrite Ql (U) Negative Normal NEGATIVE [facility] Comment on above: Performed By: #### C VDAGS #### [facility] [address] [place] [address] Dr. Ashlie Hills pH (U) 5.0 [pH] Normal 5-9 [facility] Comment on above: Performed By: #### C VDAGS #### [facility] [address] [place] [address] Dr. Ashlie Hills RBC 0-2 Normal 0-2 [facility] Comment on above: Performed By: #### C VDAGS #### [facility] [address] [place] [address] Dr. Ashlie Hills SPEC GRAVITY 1.030 Abnormal 1.005-<=1.025 [facility] Comment on above: Performed By: #### C VDAGS #### [facility] [address] [address] [address] Ashlie Hills UA PROTEIN 100 mg/dl Abnormal NEGATIVE/ TRACE [facility] Comment on above: Performed By: #### C VDAGS #### [facility] [address] [place] [address] Dr. Ashlie Hills Urobilinogen Qn (U) 0.2 {Little'U}/dL Normal 0.2 - 1. 0 [facility] Comment on above: Performed By: #### C VDAGS #### [facility] [address] [place] [address] Dr. Ashlie Hills WBC NONE SEEN Normal NONE SEEN [facility] Comment on above: Performed By: #### C VDAGS #### [facility] [address] [place] [address] Dr. Ashlie Hills CBC AUTO DIFFon 11-22-2022 BASO # 0.0 103/ul Normal 0.0-0.1 [facility] Comment on above: Performed By: #### C BC #### [facility] [address] [place] [address] Dr. Ashlie Hills Basophils/100 WBC (Bld) 0.3 % Normal 0.2-2.0 [facility] Comment on above: Performed By: #### C BC #### [facility] [address] [place] [address] Dr. Ashlie Hills EO # 0.4 103/ul Normal 0.0-0.7 [facility] Comment on above: Performed By: #### C BC #### [facility] [address] [place] [address] Dr. Ashlie Hills Eosinophils/100 WBC (Bld) 3.0 % Normal 0.9-7.0 [facility] Comment on above: Performed By: #### C BC #### [facility] [address] [place] [address] Dr. Ashlie Hills Erythrocyte distribution width (RBC) [Ratio] 15.3 % Critically high 11.0-15.0 [facility] Comment on above: Performed By: #### C BC #### [facility] [address] [address] [address] Ashlie Hills Hematocrit (Bld) [Volume fraction] 52.4 % Critically high 36.0-48.0 [facility] Comment on above: Performed By: #### C BC #### [facility] [address] [address] [address] Ashlie Hills Hemoglobin (Bld) [Mass/Vol] 16.8 g/dL Critically high 12.0-16.0 [facility] Comment on above: Performed By: #### C BC #### [facility] [address] [place] [address] Dr. Ashlie Hills IG # 0.04 10e3/ul Critically high 0.00-0.03 [facility] Comment on above: Performed By: #### C BC #### [facility] [address] [place] [address] Dr. Ashlie Hills IG % 0.3 % Normal 0.0-0.5 [facility] Comment on above: Performed By: #### C BC #### [facility] [address] [address] [address] Ashlie Hills LYMPH # 4.5 103/ul Critically high 1.2-3.8 [facility] Comment on above: Performed By: #### C BC #### [facility] [address] [place] [address] Dr. Ashlie Hills Lymphocytes/100 WBC (Bld) 33.2 % Normal 20.5-60.0 [facility] Comment on above: Performed By: #### C BC #### [facility] [address] [place] [address] Dr. Ashlie Hills MANUAL DIFF REQ NO Normal [facility] Comment on above: Performed By: #### C BC #### [facility] [address] [place] [address] Dr. Ashlie Hills MCH (RBC) [Entitic mass] 28.0 pg Normal 26.7-34.0 [facility] Comment on above: Performed By: #### C BC #### [facility] [address] [address] [address] Ashlie Hills MCHC (RBC) [Mass/Vol] 32.1 g/dL Normal 29.9-35.2 [facility] Comment on above: Performed By: #### C BC #### [facility] [address] [address] [address] Ashlie Hills MCV (RBC) [Entitic vol] 87.3 fL Normal 81.0-99.0 [facility] Comment on above: Performed By: #### C BC #### [facility] [address] [address] [address] Ashlie Hills MONO # 0.8 103/ul Normal 0.3-0.8 [facility] Comment on above: Performed By: #### C BC #### [facility] [facility] [address] [place] [address] Dr. Ashlie Hills Monocytes/100 WBC (Bld) 5.7 % Normal 1.7-12.0 [facility] Comment on above: Performed By: #### C BC #### [facility] [address] [place] [address] Dr. Ashlie Hills NEUT # 7.8 103/ul Critically high 1.4-6.5 [facility] Comment on above: Performed By: #### C BC #### [facility] [address] [place] [address] Dr. Ashlie Hills Neutrophils/100 WBC (Bld) 57.5 % Normal 43.0-75.0 [facility] Comment on above: Performed By: #### C BC #### [facility] [address] [address] [address] Ashlie Hills Platelet mean volume (Bld) [Entitic vol] 12.0 fL Normal 9.5-13.5 [facility] Comment on above: Performed By: #### C BC #### [facility] [address] [place] [address] Dr. Ashlie Hills PLT 152 103/ul Normal 150-[address] [facility] Comment on above: Performed By: #### C BC #### [facility] [address] [address] [address] Ashlie Hills RBC 6.00 106/ul Critically high 4.20-5.40 [facility] Comment on above: Performed By: #### C BC #### [facility] [address] [address] [address] Ashlie Hills WBC 13.6 103/ul Critically high 4.0-11.0 [facility] Comment on above: Performed By: #### C BC #### [facility] [address] [place] [address] Dr. Ashlie Hills LIPID PROFILEon 11-22-2022 CHOL-HDL RATIO NORM SEE BELOW [facility] Comment on above: Result Comment: 3.3 - 4.4 LOW RISK 4.4 - 7.1 AVERAGE RISK 7.1 - 11.0 MODERATE RISK >11.0 HIGH RISK Performed By: #### C BC #### [facility] [address] [place] [address] Dr. Ashlie Hills Cholesterol [Mass/Vol] 139 mg/dL Normal <=200 [facility] Comment on above: Performed By: #### C BC #### [facility] [address] [place] [address] Dr. Ashlie Hills Cholesterol in HDL [Mass/Vol] 35 mg/dL Critically low 40-60 [facility] Comment on above: Performed By: #### C BC #### [facility] [address] [place] [address] Dr. Ashlie Hills Cholesterol in LDL [Mass/Vol] 67.4 mg/dL Normal [facility] Comment on above: Performed By: #### C BC #### [facility] [address] [place] [address] Dr. Ashlie Hills Cholesterol.total/Gianna sterol in HDL [Mass ratio] 4.0 {ratio} Normal [facility] Comment on above: Performed By: #### C BC #### [facility] [address] [place] [address] Dr. Ashlie Hills HDL NORMAL > or = 60 mg/dl - LOW CARDIOVASCULAR RISK <40 mg/dl - HIGH CARDIOVASCULAR RISK Normal [facility] Comment on above: Performed By: #### C BC #### [facility] [address] [address] [address] Ashlie Hills LDL CALC NORMAL SEE BELOW Normal [facility] Comment on above: Result Comment: <100 mg/dl OPTIMAL 100 - 129 mg/dl NEAR OR ABOVE OPTIMAL 130 - 159 mg/dl BORDERLINE HIGH 160 - 189 mg/dl HIGH >190 mg/dl VERY HIGH Performed By: #### C BC #### [facility] [address] [address] [address] Ashlie Hills Triglyceride [Mass/Vol] 183 mg/dL Critically high <=[address] [facility] Comment on above: Performed By: #### C BC #### [facility] [address] [address] [address] Ashlie Hills VLDL CALC 36.6 mg/dL Normal [facility] Comment on above: Performed By: #### C BC #### [facility] [address] [address] [address] Ashlie Hills MG MAMM SCREEN 3D ALEX CADon 11-22-2022 MG MAMM SCREEN 3D ALEX CAD Patient: MITZI MACIAS Exam Date: 11/22/2022 : 1970 Gender:F Ordering : SAYDA BLAS [facility] Admission #: [id number] Family : Order #: [id number] CLICK HERE TO VIEW EXAM RADIOLOGY REPORT [...] at age 75. LOCATION: [facility] BREAST COMPOSITION: Almost entirely fatty. [...] Veloz M.D. on 11/22/2022 at 12:09 Normal [facility] PROF 14(COMP METB)on 023 Albumin [Mass/Vol] 3.0 g/dL Critically low 3.4-5.0 [facility] Comment on above: Performed By: #### C BC #### [facility] [address] [place] [address] Dr. Ashlie Hills Albumin/Globulin [Mass ratio] 0.6 {ratio} Normal [facility] Comment on above: Performed By: #### C BC #### [facility] [address] [place] [address] Dr. Ashlie Hills ALP [Catalytic activity/Vol] 68 U/L Normal 46-116 [facility] Comment on above: Performed By: #### C BC #### [facility] [address] [place] [address] Dr. Ashlie Hills ALT [Catalytic activity/Vol] 14 U/L Normal 14-59 [facility] Comment on above: Performed By: #### C BC #### [facility] [address] [place] [address] Dr. Ashlie Hills Anion gap [Moles/Vol] 12.1 mmol/L Normal [facility] Comment on above: Performed By: #### C BC #### [facility] [address] [place] [address] Dr. Ashlie Hills AST [Catalytic activity/Vol] 9 U/L Critically low 15-37 [facility] Comment on above: Performed By: #### C BC #### [facility] [address] [place] [address] Dr. Ashlie Hills Bilirubin [Mass/Vol] 0.4 mg/dL Normal 0.2-1.0 [facility] Comment on above: Performed By: #### C BC #### [facility] [address] [place] [address] Dr. Ashlie Hills Calcium [Mass/Vol] 9.0 mg/dL Normal 8.5-10.1 [facility] Comment on above: Performed By: #### C BC #### [facility] [address] [address] [address] Ashlie Hills Chloride [Moles/Vol] 105 mmol/L Normal 98-107 [facility] Comment on above: Performed By: #### C BC #### [facility] [address] [place] [address] Dr. Ashlie Hills CO2 [Moles/Vol] 30.7 mmol/L Normal 21.0-32.0 [facility] Comment on above: Performed By: #### C BC #### [facility] [address] [place] [address] Dr. Ashlie Hills Creatinine [Mass/Vol] 0.77 mg/dL Normal 0.55-1.02 [facility] Comment on above: Performed By: #### C BC #### [facility] [address] [place] [address] Dr. Ashlie Hills EGFR-AF MALAWIAN >60 Normal >=60 [facility] Comment on above: Performed By: #### C BC #### [facility] [address] [place] [address] Dr. Ashlie Hills EGFR-NON AF MALAWIAN >60 Normal >=60 [facility] Comment on above: Performed By: #### C BC #### [facility] [address] [place] [address] Dr. Ashlie Hills Globulin (S) [Mass/Vol] 4.8 g/dL Normal [facility] Comment on above: Performed By: #### C BC #### [facility] [address] [place] [address] Dr. Ashlie Hills Glucose [Mass/Vol] 162 mg/dL Critically high 74-106 [facility] Comment on above: Performed By: #### C BC #### [facility] [address] [address] [address] Ashlie Hills Potassium [Moles/Vol] 3.8 mmol/L Normal 3.5-5.1 [facility] Comment on above: Performed By: #### C BC #### [facility] [address] [address] [address] Ashlie Hills Protein [Mass/Vol] 7.8 g/dL Normal 6.4-8.2 [facility] Comment on above: Performed By: #### C BC #### [facility] [address] [address] [address] Ashlie Hills Sodium [Moles/Vol] 144 mmol/L Normal 136-145 [facility] Comment on above: Performed By: #### C BC #### [facility] [address] [address] [address] Ashlie Hills Urea nitrogen [Mass/Vol] 24.0 mg/dL Critically high 7.0-18.0 [facility] Comment on above: Performed By: #### C BC #### [facility] [address] [address] [address] Ashlie Hills Urea nitrogen/Creatinine [Mass ratio] 31.2 mg/mg Normal [facility] Comment on above: Performed By: #### C BC #### [facility] [address] [address] [address] Ashlie Hills CBC AUTO DIFFon 10-05-2022 BASO # 0.1 103/ul Normal 0.0-0.1 [facility] Comment on above: Performed By: #### C BC #### [facility] [address] [address] [address] Ashlie Hills Basophils/100 WBC (Bld) 0.6 % Normal 0.2-2.0 [facility] Comment on above: Performed By: #### C BC #### [facility] [address] [address] [address] Ashlie Hills EO # 0.3 103/ul Normal 0.0-0.7 [facility] Comment on above: Performed By: #### C BC #### [facility] [address] [address] [address] Ashlie Hills Eosinophils/100 WBC (Bld) 2.1 % Normal 0.9-7.0 [facility] Comment on above: Performed By: #### C BC #### [facility] [address] [place] [address] Dr. Ashlie Hills Erythrocyte distribution width (RBC) [Ratio] 15.9 % Critically high 11.0-15.0 [facility] Comment on above: Performed By: #### C BC #### [facility] [address] [place] [address] Dr. Ashlie Hills Hematocrit (Bld) [Volume fraction] 51.8 % Critically high 36.0-48.0 [facility] Comment on above: Performed By: #### C BC #### [facility] [address] [place] [address] Dr. Ashlie Hills Hemoglobin (Bld) [Mass/Vol] 16.6 g/dL Critically high 12.0-16.0 [facility] Comment on above: Performed By: #### C BC #### [facility] [address] [place] [address] Dr. Ashlie Hills IG # 0.03 10e3/ul Normal 0.00-0.03 [facility] Comment on above: Performed By: #### C BC #### [facility] [address] [place] [address] Dr. Ashlie Hills IG % 0.2 % Normal 0.0-0.5 [facility] Comment on above: Performed By: #### C BC #### [facility] [address] [place] [address] Dr. Ashlie Hills LYMPH # 3.9 103/ul Critically high 1.2-3.8 [facility] Comment on above: Performed By: #### C BC #### [facility] [address] [place] [address] Dr. Ashlie Hills Lymphocytes/100 WBC (Bld) 31.7 % Normal 20.5-60.[address] [facility] Comment on above: Performed By: #### C BC #### [facility] [address] [place] [address] Dr. Ashlie Hills MANUAL DIFF REQ NO Normal [facility] Comment on above: Performed By: #### C BC #### [facility] [address] [place] [address] Dr. Ashlie Hills MCH (RBC) [Entitic mass] 27.9 pg Normal 26.7-34.0 [facility] Comment on above: Performed By: #### C BC #### [facility] [address] [place] [address] Dr. Ashlie Hills MCHC (RBC) [Mass/Vol] 32.0 g/dL Normal 29.9-35.2 [facility] Comment on above: Performed By: #### C BC #### [facility] [address] [place] [address] Dr. Ashlie Hills MCV (RBC) [Entitic vol] 87.1 fL Normal 81.0-99.0 [facility] Comment on above: Performed By: #### C BC #### [facility] [address] [place] [address] Dr. Ashlie Hills MONO # 0.7 103/ul Normal 0.3-0.8 [facility] Comment on above: Performed By: #### C BC #### [facility] [address] [place] [address] Dr. Ashlie Hills Monocytes/100 WBC (Bld) 5.8 % Normal 1.7-12.0 [facility] Comment on above: Performed By: #### C BC #### [facility] [address] [place] [address] Dr. Ashlie Hills NEUT # 7.3 103/ul Critically high 1.4-6.5 [facility] Comment on above: Performed By: #### C BC #### [facility] [address] [place] [address] Dr. Ashlie Hills Neutrophils/100 WBC (Bld) 59.6 % Normal 43.0-75.0 [facility] Comment on above: Performed By: #### C BC #### [facility] [address] [address] [address] Ashlie Hills Platelet mean volume (Bld) [Entitic vol] 11.7 fL Normal 9.5-13.5 [facility] Comment on above: Performed By: #### C BC #### [facility] [address] [address] [address] Ashlie Hills PLT 117 103/ul Critically low 150-450 [facility] Comment on above: Performed By: #### C BC #### [facility] [address] [address] [address] Ashlie Hills RBC 5.95 106/ul Critically high 4.20-5.40 [facility] Comment on above: Performed By: #### C BC #### [facility] [address] [address] [address] Ashlie Hills WBC 12.3 103/ul Critically high 4.0-11.0 [facility] Comment on above: Performed By: #### C BC #### [facility] [address] [address] [address] ABD/PELV W CONon [...] Date: 2022-10-05 13:13 Normal [facility] ER URINE PROFILEon 3 Bilirubin Ql (U) Negative Normal NEGATIVE [facility] Comment on above: Performed By: #### P OCGLUC #### [facility] [address] [address] [address] Ashlie Hills Clarity (U) CLEAR Normal CLEAR [facility] Comment on above: Performed By: #### P OCGLUC #### [facility] [address] [place] [address] Dr. Ashlie Hills Color (U) YELLOW Normal YELLOW [facility] Comment on above: Performed By: #### P OCGLUC #### [facility] [address] [place] [address] Dr. Ashlie Hills ERUAHBraulio A micrscopic examination will be performed if indicated. Normal [facility] Comment on above: Performed By: #### P OCGLUC #### [facility] [address] [address] [address] Ashlie Hills Glucose Ql (U) Negative Normal NEGATIVE [facility] Comment on above: Performed By: #### P OCGLUC #### [facility] [address] [address] [address] Ashlie Hills Hemoglobin Ql (U) Negative Normal NEGATIVE [facility] Comment on above: Performed By: #### P OCGLUC #### [facility] [address] [address] [address] Ashlie Hills Ketones Ql (U) Negative Normal NEGATIVE [facility] Comment on above: Performed By: #### P OCGLUC #### [facility] [address] [place] [address] Dr. Ashlie Hills LEUKOCYTES Negative Normal NEGATIVE [facility] Comment on above: Performed By: #### P OCGLUC #### [facility] [address] [place] [address] Dr. Ashlie Hills Nitrite Ql (U) Negative Normal NEGATIVE [facility] Comment on above: Performed By: #### P OCGLUC #### [facility] [address] [place] [address] Dr. Ashlie Hills pH (U) 6.0 [pH] Normal 5-9 [facility] Comment on above: Performed By: #### P OCGLUC #### [facility] [address] [address] [address] Ashlie Hills Protein (U) [Mass/Vol] 100 mg/dL Abnormal NEGAT YURY/ TRACE [facility] Comment on above: Performed By: #### P OCGLUC #### [facility] [address] [place] [address] Dr. Ashlie Hills SPEC GRAVITY 1.010 Normal 1.005-<=1.025 [facility] Comment on above: Performed By: #### P OCGLUC #### [facility] [address] [place] [address] Dr. Ashlie Hills UR MICRO IND INDICATED Normal [facility] Comment on above: Performed By: #### P OCGLUC #### [facility] [address] [place] [address] Dr. Ashlie Hills Urobilinogen Qn (U) 1.0 {Little'U}/dL Normal 0.2 - 1. 0 [facility] Comment on above: Performed By: #### P OCGLUC #### [facility] [address] [place] [address] Dr. Ashlie Hills LIPASEon 10-05-2022 Lipase [Catalytic activity/Vol] 1771.0 U/L Critically high 73.0-393.0 [facility] Comment on above: Performed By: #### C BC #### [facility] [address] [place] [address] Dr. Ashlie Hills PREG HCG QUALon 10-05-2022 , QUAL Negative Normal NEGATIVE [facility] Comment on above: Performed By: #### P OCGLUC #### [facility] [address] [place] [address] Dr. Ashlie Hills PROF 14(COMP METB)on 023 Albumin [Mass/Vol] 3.2 g/dL Critically low 3.4-5.0 [facility] Comment on above: Performed By: #### C BC #### [facility] [address] [place] [address] Dr. Ashlie Hills Albumin/Globulin [Mass ratio] 0.7 {ratio} Normal [facility] Comment on above: Performed By: #### C BC #### [facility] [address] [address] [address] Ashlie Hills ALP [Catalytic activity/Vol] 70 U/L Normal 46-116 [facility] Comment on above: Performed By: #### C BC #### [facility] [address] [place] [address] Dr. Ashlie Hills ALT [Catalytic activity/Vol] 11 U/L Critically low 14-59 [facility] Comment on above: Performed By: #### C BC #### [facility] [address] [place] [address] Dr. Ashlie Hills Anion gap [Moles/Vol] 10.3 mmol/L Normal [facility] Comment on above: Performed By: #### C BC #### [facility] [address] [place] [address] Dr. Ashlie Hills AST [Catalytic activity/Vol] 11 U/L Critically low 15-37 [facility] Comment on above: Performed By: #### C BC #### [facility] [address] [place] [address] Dr. Ashlie Hills Bilirubin [Mass/Vol] 0.9 mg/dL Normal 0.2-1.0 [facility] Comment on above: Performed By: #### C BC #### [facility] [address] [place] [address] Dr. Ashlie Hills Calcium [Mass/Vol] 9.3 mg/dL Normal 8.5-10.1 [facility] Comment on above: Performed By: #### C BC #### [facility] [address] [place] [address] Dr. Ashlie Hills Chloride [Moles/Vol] 105 mmol/L Normal 98-107 [facility] Comment on above: Performed By: #### C BC #### [facility] [address] [address] [address] Ashlie Hills CO2 [Moles/Vol] 30.6 mmol/L Normal 21.0-32.0 [facility] Comment on above: Performed By: #### C BC #### [facility] [address] [address] [address] Ashlie Hills Creatinine [Mass/Vol] 0.62 mg/dL Normal 0.55-1.02 [facility] Comment on above: Performed By: #### C BC #### [facility] [address] [place] [address] Dr. Ashlie Hills EGFR-AF MALAWIAN >60 Normal >=60 [facility] Comment on above: Performed By: #### C BC #### [facility] [address] [place] [address] Dr. Ashlie Hills EGFR-NON AF MALAWIAN >60 Normal >=60 [facility] Comment on above: Performed By: #### C BC #### [facility] [address] [address] [address] Ashlie Hills Globulin (S) [Mass/Vol] 4.6 g/dL Normal [facility] Comment on above: Performed By: #### C BC #### [facility] [address] [place] [address] Dr. Ashlie Hills Glucose [Mass/Vol] 85 mg/dL Normal 74-106 [facility] Comment on above: Performed By: #### C BC #### [facility] [address] [place] [address] Dr. Ashlie Hills Potassium [Moles/Vol] 3.9 mmol/L Normal 3.5-5.1 [facility] Comment on above: Performed By: #### C BC #### [facility] [address] [place] [address] Dr. Ashlie Hills Protein [Mass/Vol] 7.8 g/dL Normal 6.4-8.2 [facility] Comment on above: Performed By: #### C BC #### [facility] [address] [address] [address] Ashlie Hills Sodium [Moles/Vol] 142 mmol/L Normal 136-145 [facility] Comment on above: Performed By: #### C BC #### [facility] [address] [address] [address] Ashlie Hills Urea nitrogen [Mass/Vol] 12.0 mg/dL Normal 7.0-18.0 [facility] Comment on above: Performed By: #### C BC #### [facility] [address] [place] [address] Dr. Ashlie Hills Urea nitrogen/Creatinine [Mass ratio] 19.4 mg/mg Normal [facility] Comment on above: Performed By: #### C BC #### [facility] [address] [place] [address] Dr. Ashlie Hills URINE MICROSCOPIC ONLYon BACTERIA TRACE Abnormal NONE SEEN [facility] Comment on above: Performed By: #### P OCGLUC #### [facility] [address] [place] [address] Dr. Ashlie Hills Bacteria identified Cx Nom (U) NOT INDICATED Normal [facility] Comment on above: Performed By: #### P OCGLUC #### [facility] [address] [place] [address] Dr. Ashlie Hills CAST NONE SEEN Normal NONE SEEN [facility] Comment on above: Performed By: #### P OCGLUC #### [facility] [address] [place] [address] Dr. Ashlie Hills Crystals LM Nom (Urine sed) NONE SEEN Normal NONE SEEN [facility] Comment on above: Performed By: #### P OCGLUC #### [facility] [address] [place] [address] Dr. Ashlie Hills Epithelial cells LM Ql (Urine sed) MODERATE Abnormal NONE SEEN /RARE [facility] [facility] Comment on above: Performed By: #### P OCGLUC #### [facility] [address] [place] [address] Dr. Ashlie Hills MUCOUS NONE SEEN Normal NONE SEEN [facility] Comment on above: Performed By: #### P OCGLUC #### [facility] [address] [place] [address] Dr. Ashlie Hills RBC 0-2 Normal 0-[address] [facility] Comment on above: Performed By: #### P OCGLUC #### [facility] [address] [place] [address] Dr. Ashlie Hills WBC 0-2 Abnormal NONE SEEN [facility] Comment on above: Performed By: #### P OCGLUC #### [facility] [address] [place] [address] Dr. Ashlie Hills Covid-19 PCR ([facility])on 09-06 SARS-CoV-2 (COVID-19) RNA MADDY+probe Ql (Unsp spec) Detected Abnormal NOT DETECTED The [facility] Comment on above: Result Comment: This test is not yet approved or cleared by the [place] FDA. When there are no FDA-approved or cleared tests available, and other criteria are met, FDA can make tests available under an emergency access mechanism called an Emergency Use Authorization (EUA). The EUA for this test is supported by the [employer] and Human Service's declaration that [...] By: #### C VDAGS #### [facility] [address] [place] [address] Dr. Ashlie Hills INFLUENZA A AND B AGon 09-21 INFLUANEGH SEE BELOW Normal [facility] Comment on above: Result Comment: Nega tive for Flu A protein angiten. Infection due to Flu A cannot be ruled out. Flu A angiten in the sample may be below the detection limit of the test. Performed By: #### I NFLUAB #### [facility] [address] [place] [address] Dr. Ashlie Hills INFLUBNEGH SEE BELOW Normal [facility] Comment on above: Result Comment: Nega tive for Flu B protein antigen. Infection due to Flu B cannot be ruled out. Flu B antigen in the sample may be below the detection limit of the test. Performed By: #### I NFLUAB #### [facility] [address] [place] [address] Dr. Ashlie Hills INFLUENZA A AG Negative Normal NEGATIVE SEE COMMENT [facility] Comment on above: Performed By: #### I NFLUAB #### [facility] [address] [place] [address] Dr. Ashlie Hills INFLUENZA B AG Negative Normal NEGATIVE SEE COMMENT [facility] Comment on above: Performed By: #### I NFLUAB #### [facility] [address] [place] [address] ABD/PELV W CONon [...] dating back to at least 10/21/2018, unchanged. https://www.ncbi.[facility].nih.gov/pmc/artic les/[email or web address]/ Electronically authenticated by: COLLIN HUERTAS Date: 2022-07-27 14:56 Normal [facility] CREATININEon 07-18-2022 Creatinine [Mass/Vol] 0.81 mg/dL Normal 0.55-1.02 [facility] Comment on above: Performed By: #### C BC #### [facility] [address] [place] [address] Dr. Ashlie Hills EGFR-AF MALAWIAN >60 Normal >=60 [facility] Comment on above: Performed By: #### C BC #### [facility] [address] [place], [place] [address] Dr. Ashlie Hills EGFR-NON AF MALAWIAN >60 Normal >=60 [facility] Comment on above: Performed By: #### C BC #### [facility] [address] [place], [place] [address] LOW EXT W [...] Date: 2022-07-18 14:58 Normal [facility] XR KNEE LT 1_2 Von [...] Date: 2022-07-18 12:[address] [facility] Covid-19 PCR ([facility])on 06-09 SARS-CoV-2 (COVID-19) RNA MADDY+probe Ql (Unsp spec) Not detected Normal NOT DETECTED [facility] Comment on above: Result Comment: This test is not yet approved or cleared by the [place] FDA. When there are no FDA-approved or cleared tests available, and other criteria are met, FDA can make tests available under an emergency access mechanism called an Emergency Use Authorization (EUA). The EUA for this test is supported by the [employer] of Health and Human Service's (HHS's) declaration [...] By: #### C BC #### [facility] [address] [place] [address] Dr. Ashlie Hills INFLUENZA A AND B AGon 07-06 [facility] SEE BELOW Normal [facility] Comment on above: Result Comment: Nega tive for Flu A protein angiten. Infection due to Flu A cannot be ruled out. Flu A angiten in the sample may be below the detection limit of the test. Performed By: #### C BC #### [facility] [address] [place] [address] Dr. Ashlie [facility] Normal [facility] Comment on above: Result Comment: Nega tive for Flu B protein antigen. Infection due to Flu B cannot be ruled out. Flu B antigen in the sample may be below the detection limit of the test. Performed By: #### C BC #### [facility] [address] [place] [address] Dr. Ashlie Hills INFLUENZA A AG Negative Normal NEGATIVE SEE COMMENT [facility] Comment on above: Performed By: #### C BC #### [facility] [address] [place] [address] Dr. Ashlie Hills INFLUENZA B AG Negative Normal NEGATIVE SEE COMMENT [facility] Comment on above: Performed By: #### C BC #### [facility] [address] [place] [address] Dr. Ashlie Hills POINT OF CARE GLUCOSEon 10- Glucose [Mass/Vol] 108 mg/dL Critically high 74-106 [facility] Comment on above: Performed By: #### C BC #### [facility] [address] [place] [address] Dr. Ashlie Hills RAGHU by IFAon 03-07-2022 Antinuclear Antibodies, IFA Negative Normal [facility] Comment on above: Result Comment: Nega tive <1:80 Borderline 1:80 Positive >1:80 ICAP nomenclature: AC-0 For more information about Hep-2 cell patterns use ANApatterns.org, the official website for the International Consensus on Antinuclear Antibody (RAGHU) Patterns (ICAP). Performed By: #### A NAIFA #### [facility] [address] [place] [address] Dr. Ashlie Hills IMMUNOFIXATION (TREVON), URINEo n 03-07-2022 TREVON Interpretation:U Comment Normal [facility] Comment on above: Result Comment: No m onoclonality detected. Performed By: #### C BC #### [facility] [address] [place] [address] Dr. Ashlie Hills IMMUNOFIXATION(TREVON),PROTEIN ELEC(PE),FREon 03-07-2022 Albumin [Mass/Vol] 3.0 g/dL Normal 2.9-4.4 [facility] Comment on above: Performed By: #### I NFLUAB #### [facility] [address] [place] [address] Dr. Ashlie Hills Albumin/Globulin [Mass ratio] 0.8 {ratio} Normal 0.7-1.7 [facility] Comment on above: Performed By: #### I NFLUAB #### [facility] [address] [place] [address] [address] Ashlie Hills Kkqpy-6-Psxuctuf 0.3 g/dL Normal 0.0-0.4 [facility] Comment on above: Performed By: #### I NFLUAB #### [facility] [address] [address] [address] Ashlie Hills Tzgtt-8-Lyfisetq 1.0 g/dL Normal 0.4-1.0 [facility] Comment on above: Performed By: #### I NFLUAB #### [facility] [address] [address] [address] Ashlie Hills Beta Globulin 1.8 g/dL Critically high 0.7-1.3 [facility] Comment on above: Performed By: #### I NFLUAB #### [facility] [address] [address] [address] Ashlie Hills Free [place] Lt Chains,S 45.2 mg/L Critically high 3.3-19.4 [facility] Comment on above: Performed By: #### I NFLUAB #### [facility] [address] [address] [address] Ashlie Hills Free Lambda Lt Chains,S 40.3 mg/L Critically high 5.7-26. 3 [facility] Comment on above: Performed By: #### I NFLUAB #### [facility] [address] [address] [address] Ashlie Hills Gamma Globulin 0.8 g/dL Normal 0.4-1.8 [facility] Comment on above: Performed By: #### I NFLUAB #### [facility] [address] [address] [address] Ashlie Hills Globulin (S) [Mass/Vol] 3.9 g/dL Normal 2.2-3.9 [facility] Comment on above: Performed By: #### I NFLUAB #### [facility] [address] [place] [address] Dr. Ashlie Hills Immunofixation Result, Serum Comment Normal [facility] Comment on above: Result Comment: No m onoclonality detected. Performed By: #### I NFLUAB #### [facility] [address] [address] [address] Ashlie Hills Immunoglobulin A, Qn, Serum 776 mg/dL Critically high 87-352 [facility] Comment on above: Performed By: #### I NFLUAB #### [facility] [address] [address] [address] Ashlie Hills Immunoglobulin G, Qn, Serum 955 mg/dL Normal 586-1602 [facility] Comment on above: Performed By: #### I NFLUAB #### [facility] [address] [place] [address] Dr. Ashlie Hills Immunoglobulin M, Qn, Serum 39 mg/dL Normal 26-217 [facility] Comment on above: Performed By: #### I NFLUAB #### [facility] [address] [place] [address] [address] Ashlie Hills [place]/Lambda Ratio, S 1.12 Normal 0.26-1.65 [facility] Comment on above: Performed By: #### I NFLUAB #### [facility] [address] [place] [address] [address] Ashlie Hills M-Bright Not Observed Normal Not Observed [facility] Comment on above: Performed By: #### I NFLUAB #### [facility] [address] [address] [address] Ashlie Hills PDF . Normal [facility] Comment on above: Performed By: #### I NFLUAB #### [facility] [address] [place] [address] Dr. Ashlie Hills Please note: Comment Normal [facility] Comment on above: Result Comment: Prot ein electrophoresis scan will follow via computer, mail, or um rn delivery. Performed By: #### I NFLUAB #### [facility] [address] [place] [address] Dr. Ashlie Hills Protein [Mass/Vol] 6.9 g/dL Normal 6.0-8.5 [facility] Comment on above: Performed By: #### I NFLUAB #### [facility] [address] [address] [address] Ashlie Hills C-PEPTIDE, SERUMon 2 C-Peptide, Serum 3.1 ng/mL Normal 1.1-4.4 [facility] Comment on above: Result Comment: C-Pe ptide reference interval is for fasting patients. Performed By: #### C PEPT #### [facility] [address] [address] [address] Ashlie Hills HEP B SURFACE ANTIGEN SCREEN on 03-04-2022 HBsAg Screen Negative Normal Negative [facility] Comment on above: Performed By: #### C BC #### [facility] [address] [address] [address] Ashlie Hills HEPATITIS C VIRUS AB W/ REFL EX QUANTon 03-04-2022 HCV AB <0.1 Normal 0.0-0.9 [facility] Comment on above: Performed By: #### I NFLUAB #### [facility] [address] [address] [address] Ashlie Hills Interpretation: Comment Normal The [facility] Comment on above: Result Comment: Nega tive Not infected with HCV, unless recent infection is suspected or other evidence exists to indicate HCV infection. Performed By: #### I NFLUAB #### [facility] [address] [place] [address] Dr. Ashlie Hills MICROALBUMIN/ CREATININE RAT IOon 03-04-2022 Albumin, Urine 367.4 ug/mL Normal Not Estab. The [facility] Comment on above: Performed By: #### C BC #### [facility] [address] [address] [address] Ashlie Hills Albumin/ Creatinine Ratio 239 mg/g creat Critically high 0-29 [facility] Comment on above: Result Comment: Norm al: 0 - 29 Moderately increased: 30 - 300 Severely increased: >300 Performed By: #### C BC #### [facility] [address] [place] [address] [address] Ashlie Hills Creatinine, Urine 153.9 mg/dL Normal Not Estab. The [facility] Comment on above: Performed By: #### C BC #### [facility] [address] [address] [address] Ashlie Hills VIT D 25-OH LABCORPon 2021 Vitamin D, 25-Hydroxy <4.0 Critically low 30.0-100.[address] [facility] Comment on above: Result Comment: Graciela min D deficiency has been defined by the [place] [employer] and an Endocrine Society practice guideline as a level of serum 25-OH vitamin D less than 20 ng/mL (1,2). The Endocrine Society went on to further define vitamin D insufficiency as a level between 21 and 29 ng/mL (2). 1. IOM ([employer]). 2010. Dietary reference intakes for calcium and D. [place]: The National Academies Press. 2. Lynda STAHL, Keely OLIVEROS, Leandra LOPEZ, et al. Evaluation, treatment, and prevention of vitamin D deficiency: an Endocrine Society clinical practice guideline. JCEM. 2010; 96(7):1911-30. Performed By: #### C BC #### [facility] [address] [address] [address] Ashlie Hills GLYCOHEMOGLOBIN A1Con 2021 ADA RECOMMENDATION SEE BELOW Normal [facility] Comment on above: Result Comment: ADA RECOMMENDED LIMIT 4.0 - 6.0 ADA THERAPEUTIC TARGET < 7.0 ACTION SUGGESTED > 7.0 Performed By: #### C VDAGS #### [facility] [address] [address] [address] Ashlie Hills Glucose [Mass/Vol] 295 mg/dL Normal [facility] Comment on above: Performed By: #### C VDAGS #### [facility] [address] [address] [address] Ashlie Hills HbA1c (Bld) [Mass fraction] 11.9 % Critically high 4.5-6.2 [facility] Comment on above: Performed By: #### C VDAGS #### [facility] [address] [address] [address] Ashlie Hills HEMOGRAM AND PLATELon 2021 Hematocrit (Bld) [Volume fraction] 56.3 % Critically high 36.0-48.0 [facility] Comment on above: Performed By: #### C VDAGS #### [facility] [address] [place] [address] Dr. Ashlie Hills Hemoglobin (Bld) [Mass/Vol] 18.0 g/dL Critically high 12.0-16.0 [facility] Comment on above: Performed By: #### C VDAGS #### [facility] [address] [place] [address] Dr. Ashlie Hills MCH (RBC) [Entitic mass] 29.5 pg Normal 26.7-34.0 [facility] Comment on above: Performed By: #### C VDAGS #### [facility] [address] [place] [address] Dr. Ashlie Hills MCHC (RBC) [Mass/Vol] 32.0 g/dL Normal 29.9-35.2 [facility] Comment on above: Performed By: #### C VDAGS #### [facility] [address] [place] [address] Dr. Ashlie Hills MCV (RBC) [Entitic vol] 92.1 fL Normal 81.0-99.0 [facility] Comment on above: Performed By: #### C VDAGS #### [facility] [address] [place] [address] Dr. Ashlie Hills PLT 123 103/ul Critically low 150-450 [facility] Comment on above: Performed By: #### C VDAGS #### [facility] [address] [place] [address] Dr. Ashlie Hills RBC 6.11 106/ul Critically high 4.20-5.40 [facility] Comment on above: Performed By: #### C VDAGS #### [facility] [address] [place] [address] Dr. Ashlie Hills WBC 16.4 103/ul Critically high 4.0-11.0 [facility] Comment on above: Performed By: #### C VDAGS #### [facility] [address] [place] [address] Dr. Ashlie Hills LIPID PROFILEon 03-03-2022 CHOL-HDL RATIO NORM SEE BELOW Normal [facility] Comment on above: Result Comment: 3.3 - 4.4 LOW RISK 4.4 - 7.1 AVERAGE RISK 7.1 - 11.0 MODERATE RISK >11.0 HIGH RISK Performed By: #### C VDAGS #### [facility] [address] [place] [address] Dr. Ashlie Hills Cholesterol [Mass/Vol] 159 mg/dL Normal <=200 [facility] Comment on above: Performed By: #### C VDAGS #### [facility] [address] [place] [address] Dr. Ashlie Hills Cholesterol in HDL [Mass/Vol] 40 mg/dL Normal 40-60 [facility] Comment on above: Performed By: #### C VDAGS #### [facility] [address] [place] [address] Dr. Ashlie Hills Cholesterol in LDL [Mass/Vol] 81.8 mg/dL Normal [facility] Comment on above: Performed By: #### C VDAGS #### [facility] [address] [place] [address] Dr. Ashlie Hills Cholesterol.total/Gianna sterol in HDL [Mass ratio] 4.0 {ratio} Normal [facility] Comment on above: Performed By: #### C VDAGS #### [facility] [address] [place] [address] Dr. Ashlie Hills HDL NORMAL > or = 60 mg/dl - LOW CARDIOVASCULAR RISK <40 mg/dl - HIGH CARDIOVASCULAR RISK Normal [facility] Comment on above: Performed By: #### C VDAGS #### [facility] [address] [place] [address] Dr. Ashlie Hills LDL CALC NORMAL SEE BELOW Normal [facility] Comment on above: Result Comment: <100 mg/dl OPTIMAL 100 - 129 mg/dl NEAR OR ABOVE OPTIMAL 130 - 159 mg/dl BORDERLINE HIGH 160 - 189 mg/dl HIGH >190 mg/dl VERY HIGH Performed By: #### C VDAGS #### [facility] [address] [address] [address] Ashlie Hills Triglyceride [Mass/Vol] 186 mg/dL Critically high <=150 [facility] Comment on above: Performed By: #### C VDAGS #### [facility] [address] [address] [address] Ashlie Hills VLDL CALC 37.2 mg/dL Normal [facility] Comment on above: Performed By: #### C VDAGS #### [facility] [address] [address] [address] Ashlie Hills RENAL FUNCTION PANELon 03-03 Albumin [Mass/Vol] 3.1 g/dL Critically low 3.4-5.0 [facility] Comment on above: Performed By: #### C BC #### [facility] [address] [place] [address] Dr. Ashlie Hills Calcium [Mass/Vol] 9.2 mg/dL Normal 8.5-10.1 [facility] Comment on above: Performed By: #### C BC #### [facility] [address] [address] [address] Ashlie Hills Chloride [Moles/Vol] 102 mmol/L Normal 98-107 [facility] Comment on above: Performed By: #### C BC #### [facility] [address] [place] [address] Dr. Ashlie Hills CO2 [Moles/Vol] 31.9 mmol/L Normal 21.0-32.0 [facility] Comment on above: Performed By: #### C BC #### [facility] [address] [address] [address] Ashlie Hills Creatinine [Mass/Vol] 0.68 mg/dL Normal 0.55-1.02 [facility] Comment on above: Performed By: #### C BC #### [facility] [address] [address] [address] Ashlie Hills EGFR-AF MALAWIAN >60 Normal >=60 [facility] Comment on above: Performed By: #### C BC #### [facility] [address] [place] [address] Dr. Ashlie Hills EGFR-NON AF MALAWIAN >60 Normal >=60 [facility] Comment on above: Performed By: #### C BC #### [facility] [address] [address] [address] Ashlie Hills Glucose [Mass/Vol] 131 mg/dL Critically high 74-106 [facility] Comment on above: Performed By: #### C BC #### [facility] [address] [address] [address] Ashlie Hills Phosphate [Mass/Vol] 4.0 mg/dL Normal 2.6-4.7 [facility] Comment on above: Performed By: #### C BC #### [facility] [address] [place] [address] Dr. Ashlie Hills Potassium [Moles/Vol] 4.0 mmol/L Normal 3.5-5.1 [facility] Comment on above: Performed By: #### C BC #### [facility] [address] [place] [address] Dr. Ashlie Hills Sodium [Moles/Vol] 141 mmol/L Normal 136-145 [facility] Comment on above: Performed By: #### C BC #### [facility] [address] [place] [address] Dr. Ashlie Hills Urea nitrogen [Mass/Vol] 17.0 mg/dL Normal 7.0-18.0 [facility] Comment on above: Performed By: #### C BC #### [facility] [address] [place] [address] Dr. Ashlie Hills UA RANDOM W/MICROSCOPICon BACTERIA NONE SEEN Normal NONE SEEN [facility] Comment on above: Performed By: #### I NFLUAB #### [facility] [address] [place] [address] Dr. Ashlie Hills Bilirubin Ql (U) Negative Normal NEGATIVE [facility] Comment on above: Performed By: #### I NFLUAB #### [facility] [address] [place] [address] Dr. Ashlie Hills CAST NONE SEEN Normal NONE SEEN [facility] Comment on above: Performed By: #### I NFLUAB #### [facility] [address] [place] [address] Dr. Ashlie Hills Clarity (U) CLEAR Normal CLEAR [facility] Comment on above: Performed By: #### I NFLUAB #### [facility] [address] [place] [address] Dr. Ashlie Hills Color (U) YELLOW Normal YELLOW [facility] Comment on above: Performed By: #### I NFLUAB #### [facility] [address] [place] [address] Dr. Ashlie Hills Crystals LM Nom (Urine sed) NONE SEEN Normal NONE SEEN [facility] Comment on above: Performed By: #### I NFLUAB #### [facility] [address] [place] [address] Dr. Ashlie Hills Epithelial cells LM Ql (Urine sed) FEW Abnormal NONE SEEN /RARE [facility] Comment on above: Performed By: #### I NFLUAB #### [facility] [address] [place] [address] Dr. Ashlie [place] Glucose Ql (U) Negative Normal NEGATIVE [facility] Comment on above: Performed By: #### I NFLUAB #### [facility] [address] [place] [address] Dr. Ashlie Hills Hemoglobin Ql (U) Negative Normal NEGATIVE The [facility] Comment on above: Performed By: #### I NFLUAB #### [facility] [address] [place] [address] Dr. Ashlie [place] Ketones Ql (U) Negative Normal NEGATIVE [facility] Comment on above: Performed By: #### I NFLUAB #### [facility] [address] [place] [address] Dr. Ashlie [place] LEUKOCYTES Negative Normal NEGATIVE The [facility] Comment on above: Performed By: #### I NFLUAB #### [facility] [address] [place] [address] Dr. Ashlie Hills MUCOUS NONE SEEN Normal NONE SEEN [facility] Comment on above: Performed By: #### I NFLUAB #### [facility] [address] [place] [address] Dr. Ashlie [place] Nitrite Ql (U) Negative Normal NEGATIVE [facility] Comment on above: Performed By: #### I NFLUAB #### [facility] [address] [place] [address] Dr. Ashlie Hills pH (U) 5.5 [pH] Normal 5-[address] [facility] Comment on above: Performed By: #### I NFLUAB #### [facility] [address] [place] [address] Dr. Ashlie Hills RBC 0-2 Normal 0-2 [facility] Comment on above: Performed By: #### I NFLUAB #### [facility] [address] [place] [address] Dr. Ashlie Hills SPEC GRAVITY >=1.030 Abnormal 1.005-<=1.[address] [facility] Comment on above: Performed By: #### I NFLUAB #### [facility] [address] [place] [address] Dr. Ashlie Hills UA PROTEIN 100 mg/dl Abnormal NEGATIVE/ TRACE The [facility] Comment on above: Performed By: #### I NFLUAB #### [facility] [address] [place] [address] Dr. Ashlie Hills Urobilinogen Qn (U) 0.2 {Little'U}/dL Normal 0.2 - 1. 0 [facility] Comment on above: Performed By: #### I NFLUAB #### [facility] [address] [place] [address] Dr. Ashlie Hills WBC NONE SEEN Normal NONE SEEN The [facility] Comment on above: Performed By: #### I NFLUAB #### [facility] [address] [place] [address] Dr. Ashlie Hills URIC ACID SERUMon 03-03-2022 Urate [Mass/Vol] 5.0 mg/dL Normal 2.6-6.0 [facility] Comment on above: Performed By: #### I NFLUAB #### [facility] [address] [place] [address] Dr. Ashlie Hills URINE T PROTEIN CREAT RATIOo n 03-03-2022 Protein (U) [Mass/Vol] 77.9 mg/dL Critically high <=12.0 [facility] Comment on above: Performed By: #### C VDAGS #### [facility] [address] [place] [address] Dr. Ashlie Hills UR PROT CREAT RAT 0.[address] [facility] Comment on above: Performed By: #### C VDAGS #### [facility] [address] [place] [address] Dr. Ashlie Hills URINE CREAT 175.15 mg/dL Normal 20.00-300.00 [facility] Comment on above: Performed By: #### C VDAGS #### [facility] [address] [place] [address] Dr. Ashlie Hills CULTURE URINEon 12-25-2021 CULTURE URINE Culture Observations: GREATER THAN TWO ORGANISMS PRESENT, HEAVILY MIXED. PLEASE RESUBMIT CLEAN CATCH MID-STREAM URINE IF CLINICALLY INDICATED. Normal [facility] Comment on above: Performed By: #### I NFLUAB #### [facility] [address] [place] [address] Dr. Ashlie Hills CBC AUTO DIFFon 12-24-2021 BASO # 0.1 103/ul Normal 0.0-0.1 [facility] Comment on above: Performed By: #### C BC #### [facility] [address] [place] [address] Dr. Ashlie Hills Basophils/100 WBC (Bld) 0.5 % Normal 0.2-2.0 [facility] Comment on above: Performed By: #### C BC #### [facility] [address] [place] [address] Dr. Ashlie Hills EO # 0.4 103/ul Normal 0.0-0.7 [facility] Comment on above: Performed By: #### C BC #### [facility] [address] [place] [address] Dr. Ashlie Hills Eosinophils/100 WBC (Bld) 2.4 % Normal 0.9-7.0 [facility] Comment on above: Performed By: #### C BC #### [facility] [address] [place] [address] Dr. Ashlie Hills Erythrocyte distribution width (RBC) [Ratio] 14.1 % Normal 11.0-15.0 [facility] Comment on above: Performed By: #### C BC #### [facility] [address] [place] [address] Dr. Ashlie Hills Hematocrit (Bld) [Volume fraction] 55.9 % Critically high 36.0-48.0 [facility] Comment on above: Performed By: #### C BC #### [facility] [address] [place] [address] Dr. Ashlie Hills Hemoglobin (Bld) [Mass/Vol] 17.9 g/dL Critically high 12.0-16.0 [facility] Comment on above: Performed By: #### C BC #### [facility] [address] [place] [address] Dr. Ashlie Hills IG # 0.06 10e3/ul Critically high 0.00-0.03 [facility] Comment on above: Performed By: #### C BC #### [facility] [address] [place] [address] Dr. Ashlie Hills IG % 0.4 % Normal 0.0-0.5 [facility] Comment on above: Performed By: #### C BC #### [facility] [address] [place] [address] Dr. Ashlie Hills LYMPH # 5.8 103/ul Critically high 1.2-3.8 [facility] Comment on above: Performed By: #### C BC #### [facility] [address] [place] [address] Dr. Ashlie Hills Lymphocytes/100 WBC (Bld) 35.4 % Normal 20.5-60.0 [facility] Comment on above: Performed By: #### C BC #### [facility] [address] [place] [address] Dr. Ashlie Hills MANUAL DIFF REQ NO Normal The [facility] Comment on above: Performed By: #### C BC #### [facility] [address] [address] [address] Ashlie Hills MCH (RBC) [Entitic mass] 29.4 pg Normal 26.7-34.0 [facility] Comment on above: Performed By: #### C BC #### [facility] [address] [place] [address] Dr. Ashlie Hills MCHC (RBC) [Mass/Vol] 32.0 g/dL Normal 29.9-35.2 [facility] Comment on above: Performed By: #### C BC #### [facility] [address] [place] [address] Dr. Ashlie Hills MCV (RBC) [Entitic vol] 91.8 fL Normal 81.0-99.0 [facility] Comment on above: Performed By: #### C BC #### [facility] [address] [place] [address] Dr. Ashlie Hills MONO # 0.8 103/ul Normal 0.3-0.8 [facility] Comment on above: Performed By: #### C BC #### [facility] [address] [place] [address] Dr. Ashlie Hills Monocytes/100 WBC (Bld) 4.8 % Normal 1.7-12.0 [facility] Comment on above: Performed By: #### C BC #### [facility] [address] [place] [address] Dr. Ashlie Hills NEUT # 9.3 103/ul Critically high 1.4-6.5 [facility] Comment on above: Performed By: #### C BC #### [facility] [address] [place] [address] Dr. Ashlie Hills Neutrophils/100 WBC (Bld) 56.5 % Normal 43.0-75.0 [facility] Comment on above: Performed By: #### C BC #### [facility] [address] [place] [address] Dr. Ashlie Hills Platelet mean volume (Bld) [Entitic vol] 12.9 fL Normal 9.5-13.[address] [facility] Comment on above: Performed By: #### C BC #### [facility] [address] [place], [place] [address] Dr. Ashlie Hills PLT 127 103/ul Critically low 150-450 [facility] Comment on above: Performed By: #### C BC #### [facility] [address] [place], [place] [address] Dr. Ashlie Hills RBC 6.09 106/ul Critically high 4.20-5.40 [facility] Comment on above: Performed By: #### C BC #### [facility] [address] [place], [place] [address] Dr. Ashlie Hills WBC 16.4 103/ul Critically high 4.0-11.0 [facility] Comment on above: Performed By: #### C BC #### [facility] [address] [place], [place] [address] ABD/PELVIS WO CONon [...] hip degenerative change. Normal The [facility] ER URINE PROFILEon 2 Bilirubin Ql (U) Negative Normal NEGATIVE The [facility] Comment on above: Performed By: #### E NURA UMICRO #### [facility] [address] [place] [address] Dr. Ashlie Hills Clarity (U) CLEAR Normal CLEAR The [facility] Comment on above: Performed By: #### E NURA UMICRO #### [facility] [address] [address] [address] Ashlie Hills Color (U) DK. ORANGE Abnormal YELLOW The [facility] Comment on above: Performed By: #### E NURA ICRO #### [facility] [address] [address] [address] Ashlie Hills ERUAHD A micrscopic examination will be performed if indicated. Normal The [facility] Comment on above: Performed By: #### Tarcey LYMAN UMICRO #### [facility] [address] [address] [address] Ashlie Hills Glucose Ql (U) 250 mg/dl Abnormal NEGATIVE [facility] Comment on above: Performed By: #### Tracey LYMAN UMICRO #### [facility] [address] [place] [address] Dr. Ashlie Hills Hemoglobin Ql (U) Negative Normal NEGATIVE [facility] Comment on above: Performed By: #### Tracey LYMAN UMICRO #### [facility] [address] [place] [address] Dr. Ashlie Hills Ketones Ql (U) Negative Normal NEGATIVE [facility] Comment on above: Performed By: #### Tracey LYMAN UMICRO #### [facility] [address] [place] [address] Dr. Ashlie Hills LEUKOCYTES Negative Normal NEGATIVE [facility] Comment on above: Performed By: #### Tracey LYMAN UMICRO #### [facility] [address] [place] [address] Dr. Ashlie Hills Nitrite Ql (U) Negative Normal NEGATIVE [facility] Comment on above: Performed By: #### MADELINE DIAZRO #### [facility] [address] [place] [address] Dr. Ashlie Hills pH (U) 5.0 [pH] Normal 5-9 [facility] Comment on above: Performed By: #### PEREZ DIAZICRO #### [facility] [address] [place] [address] Dr. Ashlie Hills Protein (U) [Mass/Vol] 100 mg/dL Abnormal NEGAT YURY/ TRACE [facility] Comment on above: Performed By: #### MADELINE DIAZRO #### [facility] [address] [place] [address] Dr. Ashlie Hills SPEC GRAVITY >=1.030 Abnormal 1.005-<=1.025 [facility] Comment on above: Performed By: #### MADELINE DIAZRO #### [facility] [address] [place] [address] Dr. Ashlie Hills UR MICRO IND INDICATED Normal [facility] Comment on above: Performed By: #### EVONNE DIAZ #### [facility] [address] [place] [address] Dr. Ashlie Hills Urobilinogen Qn (U) 1.0 {Little'U}/dL Normal 0.2 - 1. 0 [facility] Comment on above: Performed By: #### EVONNE DIAZ #### [facility] [address] [place] [address] Dr. Ashlie Hills PROF CHEM 8 (BAS METB)on Anion gap [Moles/Vol] 12.1 mmol/L Normal [facility] Comment on above: Performed By: #### I NFLUAB #### [facility] [address] [place] [address] Dr. Ashlie Hills Calcium [Mass/Vol] 9.0 mg/dL Normal 8.5-10.1 [facility] Comment on above: Performed By: #### I NFLUAB #### [facility] [address] [place] [address] Dr. Ashlie Hills Chloride [Moles/Vol] 101 mmol/L Normal 98-107 [facility] Comment on above: Performed By: #### I NFLUAB #### [facility] [address] [place] [address] Dr. Ashlie Hills CO2 [Moles/Vol] 29.1 mmol/L Normal 21.0-32.0 [facility] Comment on above: Performed By: #### I NFLUAB #### [facility] [address] [place] [address] Dr. Ashlie Hills Creatinine [Mass/Vol] 0.86 mg/dL Normal 0.55-1.02 [facility] Comment on above: Performed By: #### I NFLUAB #### [facility] [address] [place] [address] Dr. Ashlie Hills EGFR-AF MALAWIAN >60 Normal >=60 [facility] Comment on above: Performed By: #### I NFLUAB #### [facility] [address] [address] [address] Ashlie Hills EGFR-NON AF MALAWIAN >60 Normal >=60 [facility] Comment on above: Performed By: #### I NFLUAB #### [facility] [address] [address] [address] Ashlie Hills Glucose [Mass/Vol] 236 mg/dL Critically high 74-106 [facility] Comment on above: Performed By: #### I NFLUAB #### [facility] [address] [address] [address] Ashlie Hills Potassium [Moles/Vol] 4.2 mmol/L Normal 3.5-5.1 [facility] Comment on above: Performed By: #### I NFLUAB #### [facility] [address] [address] [address] Ashlie Hills Sodium [Moles/Vol] 138 mmol/L Normal 136-145 [facility] Comment on above: Performed By: #### I NFLUAB #### [facility] [address] [address] [address] Ashlie Hills Urea nitrogen [Mass/Vol] 11.0 mg/dL Normal 7.0-18.0 [facility] Comment on above: Performed By: #### I NFLUAB #### [facility] [address] [address] [address] Ashlie Hills Urea nitrogen/Creatinine [Mass ratio] 12.8 mg/mg Normal [facility] Comment on above: Performed By: #### I NFLUAB #### [facility] [address] [address] [address] Ashlie Hills URINE MICROSCOPIC ONLYon BACTERIA SMALL Abnormal NONE SEEN The [facility] Comment on above: Performed By: #### EVONNE DIAZ #### [facility] [address] [address] [address] Ashlie Hills Bacteria identified Cx Nom (U) INDICATED Normal [facility] Comment on above: Performed By: #### E RUR, UMICRO #### [facility] [address] [place] [address] Dr. Ashlie Hills CAST NONE SEEN Normal NONE SEEN The [facility] Comment on above: Performed By: #### E NURA UMICRO #### [facility] [address] [place] [address] Dr. Ashlie Hills Crystals LM Nom (Urine sed) NONE SEEN Normal NONE SEEN The [facility] Comment on above: Performed By: #### E NURA UMICRO #### [facility] [address] [place] [address] Dr. Ashlie Hills Epithelial cells LM Ql (Urine sed) MODERATE Abnormal NONE SEEN /RARE The [facility] Comment on above: Performed By: #### E NURA UMICRO #### [facility] [address] [place] [address] Dr. Ashlie Hills MUCOUS NONE SEEN Normal NONE SEEN The [facility] Comment on above: Performed By: #### Tracey LYMAN UMICRO #### [facility] [address] [place] [address] Dr. Ashlie Hills RBC 0-2 Normal 0-[address] [facility] Comment on above: Performed By: #### Tracey LYMAN UMICRO #### [facility] [address] [place] [address] Dr. Ashlie Hills WBC 0-2 Abnormal NONE SEEN The [facility] Comment on above: Performed By: #### Tracey LYMAN UMICRO #### [facility] [address] [place] [address] Dr. Ashlie Hills YEAST PRESENT Abnormal NONE SEEN The [facility] Comment on above: Performed By: #### Tracey LYMAN UMICRO #### [facility] [address] [place] [address] Dr. Ashlie Hills HIP RIGHT 1 OR 2 VWS WITH PE LVISon 07-20-2020 HIP RIGHT 1 OR 2 VWS WITH PELVIS [facility] Department of Radiology [address] [place] [id number] Patient Name: MITZI MACIAS : 1970 Sex: F Age: Race: White Pt. Location: Patient Status: O Ordered Date: 07/20/2020 1:45:00 PM Completed Date: 07/20/2020 01:57 PM Requesting Provider: LIZ EISENBERG Attending Provider: LIZ EISENBERG Report Copy To: MCKAYLA BLAS Signs & Symptoms: M25.551 Pain in right hip I10 History: [place] Comments: evaluate Exam: HIP RIGHT 1 OR [...] MRI. Electronically signed: Pipo Acevedo. Transcribed by: [email or web address], User Resident: Electronically Signed by: PIPO ACEVEDO @ 07/20/2020 03:45 PM Normal [facility] Comment on above: Order Comment: evalu ate Vital Signs Date Time Vital Sign Value Performing Clinician Facility 12-09-2024 10: Body temperature 98.01 [degF] Mckayla Blas [employer]NALYST Work Phone: [facility] 12-09-2024 10:19-0400 Diastolic blood pressure 76 mm[Hg] Mckayla Blas MARKET[employer] ANALYT[employer] ANALYST Work Phone: [facility] 12-09-2024 10:19-0400 Heart rate 71 /min Mckayla Harshadholz MARK[employer] ANALYST Work Phone: [facility] 12-09-2024 10:19-0400 Respiratory rate 20 /min Mckayla Harshadholz MARKETING ANALYT[employer] ANALYST Work Phone: [facility] 12-09-2024 10:19-0400 SaO2% (BldA) [Mass fraction] 88 % Mckayla Harshadholz MARKETING ANALYT[employer] ANALYST Work Phone: [facility] 12-09-2024 10:19-0400 Systolic blood pressure 150 mm[Hg] Mckayla Aichholz MARK[employer]NALYT[employer] ANALYST Work Phone: [facility] 10-27-2024 14:11-0400 Body height 170.2 cm Mckayla Juanjosehholz MARKETING ANALYT[employer] ANALYST Work Phone: [facility] 10-27-2024 14:11-0400 Body mass index (BMI) [Ratio] 56.51 kg/m2 Mckayla Harshadholz MARKETING [employer]LY[employer] ANALYST Work Phone: [facility] 10-27-2024 14:11-0400 Body temperature 98.71 [degF] Mckayla Juanjosehholz MARKETING ANALYT[employer] ANALYST Work Phone: [facility] 10-27-2024 14:11-0400 Body weight 163.66 kg Mckayla Harshadholz MARKETING [employer]LYT[employer] ANALYST Work Phone: [facility] 10-27-2024 14:11-0400 Diastolic blood pressure 74 mm[Hg] Mckayla Juanjosehholz MARKETING ANALYT[employer] ANALYST Work Phone: [facility] 10-27-2024 14:11-0400 Heart rate 75 /min Mckayla Aichholz MARKETING A[employer]LY[employer] ANALYST Work Phone: [facility] 10-27-2024 14:11-0400 Respiratory rate 18 /min Mckayla Aichholz MARKETING ANALYT[employer] ANALYST Work Phone: [facility] 10-27-2024 14:11-0400 SaO2% (BldA) [Mass fraction] 90 % Mckayla Aichholz MARKETING ANALYT[employer] ANALYST Work Phone: [facility] 10-27-2024 14:11-0400 Systolic blood pressure 132 mm[Hg] Mkcayla Blas MARKETING ANALYT[employer] ANALYST Work Phone: [facility] 10-08-2024 11:21-0400 Body height 170.2 cm Rain Souza MD Work Phone: [facility] 10-08-2024 11:21-0400 Body mass index (BMI) [Ratio] 55.91 kg/m2 Rain Souza MD Work Phone: [facility] 10-08-2024 11:21-0400 Body weight 161.93 kg Rain Souza MD Work Phone: [facility] 10-08-2024 11:21-0400 Diastolic blood pressure 70 mm[Hg] Rain Souza MD Work Phone: [facility] 10-08-2024 11:21-0400 Heart rate 70 /min Rain Souza MD Work Phone: [facility] 10-08-2024 11:21-0400 Respiratory rate 16 /min Rain Souza MD Work Phone: [facility] 10-08-2024 11:21-0400 SaO2% (BldA) [Mass fraction] 91 % Rain Souza MD Work Phone: [facility] 10-08-2024 11:21-0400 Systolic blood pressure 130 mm[Hg] Rain Souza MD Work Phone: [facility] 08-27-2024 17:44-0500 Body mass index (BMI) [Ratio] 57.31 kg/m2 Mckayla Blas MARKETING ANALYT[employer] ANALYST Work Phone: [facility] 08-27-2024 17:44-0500 Body temperature 98.01 [degF] Mckayla Blas MARKETING A[employer]LYT[employer] ANALYST Work Phone: [facility] 08-27-2024 17:44-0500 Body weight 165.97 kg Mckayla Blas MARKETING ANALYT[employer] ANALYST Work Phone: [facility] 08-27-2024 17:44-0500 Diastolic blood pressure 76 mm[Hg] Mckayla Wan MARKETING [employer]LYT[employer] ANALYST Work Phone: [facility] 08-27-2024 17:44-0500 Heart rate 83 /min Mckayla Wan MARKETING ANALYT[employer] ANALYST Work Phone: [facility] 08-27-2024 17:44-0500 Respiratory rate 18 /min Mckayla Wan MARKETING [employer]LYT[employer] ANALYST Work Phone: [facility] 08-27-2024 17:44-0500 SaO2% (BldA) [Mass fraction] 91 % Mckayla Wan MARKETING ANALYT[employer] ANALYST Work Phone: [facility] 08-27-2024 17:44-0500 Systolic blood pressure 134 mm[Hg] Mckayla Aicmickeyz MARKETING ANALYT[employer] ANALYST Work Phone: [facility] 06-11-2024 10:00-0500 Blood Pressure Location Elbert ARAUZ [facility] 06-11-2024 10:00-0500 Diastolic blood pressure 68 mm[Hg] Elbert ARAUZ [facility] 06-11-2024 10:00-0500 Heart rate 76 /min Elbert ARAUZ [facility] 06-11-2024 10:00-0500 Systolic blood pressure 132 mm[Hg] Elbert ARAUZ [facility] 05-27-2024 10:20-0500 Body height 170.2 cm Rain Souza MD Work Phone: [facility] 05-27-2024 10:20-0500 Body mass index (BMI) [Ratio] 56.7 kg/m2 Rain Souza MD Work Phone: [facility] 05-27-2024 10:20-0500 Body weight 164.2 kg Rain Souza MD Work Phone: [facility] 05-27-2024 10:20-0500 Diastolic blood pressure 66 mm[Hg] Rain Souza MD Work Phone: [facility] 05-27-2024 10:20-0500 Heart rate 72 /min Rain Souza MD Work Phone: [facility] 05-27-2024 10:20-0500 Respiratory rate 16 /min Rain Souza MD Work Phone: [facility] 05-27-2024 10:20-0500 Systolic blood pressure 128 mm[Hg] Rain Souza MD Work Phone: [facility] 04-14-2024 10:27-0400 Body height 165.1 cm Mckayla Chetz MARKETING ANALYTICS ANALYST Work Phone: [facility] 04-14-2024 10:27-0400 Body mass index (BMI) [Ratio] 61.01 kg/m2 Mckayla Aiccayetanoholz MARKETING ANALYTICS ANALYST Work Phone: [facility] 04-14-2024 10:27-0400 Body temperature 98.49 [degF] Mckayla Aichholz MARKETING ANALYTICS ANALYST Work Phone: [facility] 04-14-2024 10:27-0400 Body weight 166.29 kg Mckayla Aichholz MARKETING ANALYTICS ANALYST Work Phone: [facility] 04-14-2024 10:27-0400 Diastolic blood pressure 80 mm[Hg] Mckayla Aichholz MARKETING ANALYTICS ANALYST Work Phone: [facility] 04-14-2024 10:27-0400 Heart rate 77 /min Mckayla Aichholz MARKETING ANALYTICS ANALYST Work Phone: [facility] 04-14-2024 10:27-0400 Respiratory rate 19 /min Mckayla Aichholz MARKETING ANALYTICS ANALYST Work Phone: [facility] 04-14-2024 10:27-0400 SaO2% (BldA) [Mass fraction] 92 % Mckayla Aichholz MARKETING ANALYTICS ANALYST Work Phone: [facility] 04-14-2024 10:27-0400 Systolic blood pressure 116 mm[Hg] Mckayla Patriciadallin MARKETING ANALYTICS ANALYST Work Phone: [facility] 03-08-2022 15:00-0400 Body height 170.18 cm Stephanie Tico [facility] Other 03-08-2022 15:00-0400 Body temperature 97.6 [degF] Stephanie Tico Other [facility] Other 03-08-2022 15:00-0400 Diastolic blood pressure 72 mm[Hg] Stephanie Tico Other [facility] Other 03-08-2022 15:00-0400 Respiratory rate 20 /min Stephanie Tico Other [facility] Other 03-08-2022 15:00-0400 SaO2% (BldA) [Mass fraction] 91 % Stephanie Tico [facility] Other 03-08-2022 15:00-0400 Systolic blood pressure 131 mm[Hg] Stephanie Tico Other [facility] Other 02-20-2022 09:20-0400 Body height 170.18 cm Stephanie Tico Other [facility] Other 02-20-2022 09:20-0400 Body temperature 96.5 [degF] Stephanie Tico Other [facility] Other 02-20-2022 09:20-0400 Diastolic blood pressure 69 mm[Hg] Stephanie Tico Other [facility] Other 02-20-2022 09:20-0400 Respiratory rate 20 /min Stephanie Tico [facility] Other 02-20-2022 09:20-0400 SaO2% (BldA) [Mass fraction] 91 % Stephanie Tico [facility] Other 02-20-2022 09:20-0400 Systolic blood pressure 129 mm[Hg] Stephanie Tico Other [facility] Other 02-06-2022 10:24-0400 Blood Pressure Location [employer] [facility] [employer] 02-06-2022 10:24-0400 Diastolic blood pressure 76 mm[Hg] Alleantia [facility] 02-06-2022 10:24-0400 Heart rate 70 /min Elbert [employer] [facility] 02-06-2022 10:24-0400 Respiratory rate 16 /min Elbert [employer] [facility] 02-06-2022 10:24-0400 Systolic blood pressure 134 mm[Hg] Elbert [employer] [facility] En[facility] Encounter Date Encounter Type Care Provider Facility Start: 12-18-2024 End: 12-19-2024 Refill Mckayla Blas MARKETING ANALYTICS ANALYST Work Phone: [facility] Comment on above: Hyperlipidemia, unsp ecified ; Tobacco user; Encounter for smoking cessation counseling Start: 12-09-2024 End: 12-09-2024 Bamboo flowsheet Mckayla Blas MARKETING ANALYTICS ANALYST Work Phone: [facility] Start: 12-09-2024 End: 12-09-2024 Bamboo flowsheet Mckayla Blas MARKETING ANALYTICS ANALYST Work Phone: [facility] Start: 12-09-2024 End: 12-09-2024 ambulatory MCKAYLA AICHHOLZ Not Available Start: 12-09-2024 End: 12-09-2024 Office outpatient visit 25 minutes Mckayla Blas MARKETING ANALYTICS ANALYST Work Phone: [facility] Comment on above: Cellulitis of left l ower extremity (Primary Dx); COPD exacerbation (CMS/HCC); Primary hypertension (CMS/HCC); Pulmonary hypertension (CMS/HCC); Morbid (severe) obesity due to excess calories (CMS/HCC); Type 2 diabetes mellitus with complication, with long-term current use of insulin (CMS/HCC); Anxiety and depression (CMS/HCC); Fever, unspecified fever cause Start: 12-04-2024 End: 12-07-2024 Clinisync Result Encounter Generic External Data Provider [facility] External Department Unsolicited Start: 12-04-2024 End: 12-07-2024 Clinisync Result Encounter Generic External Data Provider [facility] External Department Unsolicited Start: 10-27-2024 End: 10-27-2024 ambulatory MCKAYLA AICHHOLZ Not Available Start: 10-27-2024 End: 10-27-2024 Office outpatient visit 25 minutes Mckayla Blas MARKETING ANALYTICS ANALYST Work Phone: [facility] Comment on above: Primary hypertension (CMS/HCC) [...] disease without esophagitis; PAD (peripheral artery disease) ([facility]); Gastroesophageal reflux disease, unspecified whether esophagitis present; Venous ulcer of right leg ([facility]) Start: 10-21-2024 End: 10-21-2024 Refill Mckayla Blas NP Work Phone: [facility] Comment on above: Chronic obstructive pulmonary disease, unspecified Start: 10-08-2024 End: 10-08-2024 Clinisync Result Encounter Mckayla Blas NP Work Phone: [facility] External Department Unsolicited Start: 10-08-2024 End: 10-08-2024 Clinisync Result Encounter Mckayla Blas NP Work Phone: [facility] External Department Unsolicited Start: 10-08-2024 End: 10-08-2024 Office outpatient visit 25 minutes Rain Souza MD Work Phone: [facility] Comment on above: Type 2 diabetes asiya itus with hyperglycemia, with long-term current use of insulin ([facility]) (Primary Dx); Encounter for dietary consultation; Vitamin D deficiency; Primary hypertension ([facility]); Insulin long-term use ([facility]); Hyperlipemia, mixed ([facility]); Microalbuminuria; Class 3 severe obesity due to excess calories with serious comorbidity and body mass index (BMI) of 50.0 to 59.9 in adult Start: 10-08-2024 End: 10-08-2024 ambulatory RAIN SOUZA Not Available Start: 08-27-2024 End: 08-27-2024 Office outpatient visit 25 minutes Mckayla Blas NP Work Phone: [facility] Comment on above: Anxiety and depressi on ([facility]/HCC) (Primary Dx); Morbid (severe) obesity due to excess calories ([facility]); Body mass index (BMI) 50.0-59.9, adult ([facility]); Malignant neoplasm of cervix uteri, unspecified ([facility]); Diabetic polyneuropathy associated with type 2 diabetes mellitus ([facility]); Chronic diastolic heart failure ([facility]); Primary hypertension ([facility]); 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 ([facility]); Gastroesophageal reflux disease, unspecified whether esophagitis present; Bilateral lower extremity edema; Type 2 diabetes mellitus with complication, with long-term current use of insulin ([facility]); Tobacco user; Mixed hyperlipidemia ([facility]); Gout, unspecified cause, unspecified chronicity, unspecified site; Vitamin deficiency; Gastro-esophageal reflux disease without esophagitis; Edema, unspecified; Edema; Hyperlipidemia, unspecified ([facility]); Encounter for smoking cessation counseling; Venous ulcer of right leg ([facility]); Antibiotic-induced yeast infection Start: 08-27-2024 End: 08-27-2024 ambulatory MCKAYLA BLAS Not Available Start: 08-27-2024 End: 08-27-2024 Clinisync Result Encounter Generic External Data Provider [facility] External Department Unsolicited Start: 08-27-2024 End: 08-27-2024 Clinisync Result Encounter Generic External Data Provider [facility] External Department Unsolicited Start: 08-08-2024 End: 08-08-2024 ambulatory [facility] Start: 07-17-2024 End: 07-17-2024 Refill Mckayla Blas NP Work Phone: [facility] Start: 07-14-2024 End: 07-14-2024 Office outpatient visit 25 minutes Mckayla Blas NP Work Phone: [facility] Comment on above: Primary hypertension ([facility]) (Primary Dx); Diabetic polyneuropathy associated with type 2 diabetes mellitus ([facility]); Pulmonary emphysema, unspecified emphysema type ([facility]); Critical limb ischemia of right lower extremity ([facility]); PAD (peripheral artery disease) ([facility]); Gastroesophageal reflux disease, unspecified whether esophagitis present; Bilateral lower extremity edema; Venous ulcer of right leg ([facility]); Type 2 diabetes mellitus with complication, with long-term current use of insulin (CMS/HCC); Tobacco user; Encounter for smoking cessation counseling; Kidney stone; Adrenal mass 1 cm to 4 cm in diameter (CMS/HCC); Radiculopathy, lumbar region; Non-seasonal allergic rhinitis, unspecified trigger; Type 2 diabetes mellitus with unspecified complications (CMS/HCC) Start: 07-14-2024 End: 07-14-2024 ambulatory MCKAYLA AICHHOLZ Not Available Start: 07-05-2024 End: 07-07-2024 Refill Mckayla Aichholz MARKETING ANALYTICS ANALYST Work Phone: [facility] Comment on above: Bilateral lower extr emity edema Start: 06-11-2024 ambulatory Elbert ARAUZ Facili ty:[facility] Start: 06-11-2024 End: 06-11-2024 Patient encounter procedure Elbert ARAUZ [facility] [place] Start: 05-27-2024 End: 05-27-2024 Bamboo flowsheet Rain Souza MD Work Phone: [facility] Start: 05-27-2024 End: 05-27-2024 Bamboo flowsheet Rain Souza MD Work Phone: [facility] Start: 05-27-2024 End: 05-27-2024 ambulatory RAIN SOUZA Not Available Start: 05-27-2024 End: 05-27-2024 Office outpatient visit 25 minutes Rain Souza MD Work Phone: [facility] Comment on above: Type 2 diabetes asiya itus with hyperglycemia, with long-term current use of insulin ([facility]) (Primary Dx); Encounter for dietary consultation; Vitamin [...] External Department Unsolicited Start: 05-08-2024 ambulatory SARAH Webb SILVIA Rock ty:SHEA Villalobos Start: 04-14-2024 End: 04-14-2024 Bamboo flowsheet Mckaylajuvenal Blas MARKETING ANALYTICS ANALYST Work Phone: [facility] Start: 04-14-2024 End: 04-14-2024 Bamboo flowsheet Mckayla Aiccayetanoholz MARKETING ANALYTICS ANALYST Work Phone: [facility] Start: 04-14-2024 End: 04-14-2024 Office outpatient visit 25 minutes Mckaylajuvenal Blas MARKETING ANALYTICS ANALYST Work Phone: [facility] Comment on above: Primary hypertension (CMS/HCC) [...] Start: 04-05-2024 End: 04-06-2024 Refill Mckayla Aichholz MARKETING ANALYTICS ANALYST Work Phone: [facility] Comment on above: Hyperlipidemia, unsp ecified (CMS/HCC); Bilateral lower extremity edema Vitamin D deficiency , unspecified Start: 01-17-2024 Patient encounter procedure Rain Souza MD Work Phone: [facility] Start: 01-17-2024 End: 01-17-2024 ambulatory MCKAYLA AICHHOLZ Not Available Start: 11-14-2023 End: 11-14-2023 ambulatory [facility] Start: 08-17-2023 Refill Mckayla Juanjosecayetanodallin MARKETING ANALYTICS ANALYST Work Phone: [facility] Comment on above: Vaginal yeast infect ion (Primary Dx) Start: 08-14-2023 Refill Mckayla Juanjosecayetanodallin MARKETING ANALYTICS ANALYST Work Phone: [facility] Comment on above: Type 2 diabetes asiya itus with unspecified complications ([facility]); Edema, unspecified; Edema Start: 12-05-2022 ambulatory NARENDRANATH LAKSHMIPATHY . Facility:[facility] Start: 12-05-2022 End: 12-06-2022 Evaluation and management of inpatient UMBERTO CANTU . Facility:[facility] Start: 11-23-2022 End: 11-23-2022 ambulatory SAYDA ASENCIO JUANJOSECayetanoRAVIJuanis Facility:[facility] Start: 11-22-2022 End: 11-23-2022 ambulatory SAYDA PATRICIARAVIJuanis Facility:[facility] Start: 11-17-2022 End: 11-18-2022 ambulatory SUBHASH CHASITY . Facility:[facility] Start: 11-15-2022 End: 11-15-2022 Patient encounter procedure SARAH VEGA [facility] Start: 10-05-2022 End: 10-05-2022 ambulatory MARIANO DIAB . Facility:[facility] Start: 09-21-2022 End: 09-21-2022 ambulatory [facility] SPECIALIST MCKAYLA PATRICIARAVIJuanis Facility:[facility] Start: 09-14-2022 ambulatory RAFAEL Ribera y:[facility] Start: 08-24-2022 End: [address] CHAPARRO MORTENSEN . Facility:[facility] Start: 08-21-2022 End: 08-22-2022 ambulatory HATTIE BRODERICK Facility:[facility] Start: 07-27-2022 End: 07-28-2022 ambulatory CECILIA TORRES . Facility:[facility] Start: 07-18-2022 End: 07-19-2022 ambulatory CECILIA TORRES . Facility:[facility] Start: 07-18-2022 End: 07-19-2022 ambulatory HATTIE Braulio العليBANDAR Facility:[facility] Start: 07-06-2022 End: 07-06-2022 ambulatory SAYDA BLAS Facility:[facility] Start: 05-11-2022 End: 05-12-2022 ambulatory GIL VALENZUELA . Facility:[facility] Start: 04-25-2022 End: 04-25-[address] CHAPARRO MORTENSEN . Facility:[facility] Start: 04-20-2022 End: 04-21-2022 ambulatory GIL VALENZUELA . Facility:[facility] Start: 03-08-2022 End: 03-08-2022 ambulatory Stephanie Tico Other [facility] Other Start: 03-08-2022 Office outpatient vi sit 15 minutes Stephanie Tico [facility] Start: 03-03-2022 End: 03-04-2022 ambulatory SAYDA BLAS Facility:[facility] Start: 02-20-2022 End: 02-20-2022 ambulatory Stephanie Tico Other [facility] Other Start: 02-20-2022 Office outpatient ne w 45 minutes Stephanie Tico [facility] Start: 02-06-2022 End: 02-06-2022 Patient encounter procedure Elbert ARAUZ [facility] Start: 01-19-2022 End: 01-20-2022 ambulatory GIL VALENZUELA . Facility:[facility] Start: 12-24-2021 End: 12-24-2021 ambulatory OLE RAMIREZ Facility:[facility] Start: 08-26-2020 End: 09-10-2020 Patient encounter procedure MARY TAVERAS Facility:[facility] Start: 10-30-2019 End: 10-30-2019 Emergency department patient visit JAMES Reis [facility] Start: 10-30-2019 End: 10-30-2019 Emergency department patient visit James Deo [facility] Emergency Department Start: 11-02-2016 Preoperative state Stephanie Tico Other [facility] [employer] Other Procedures Date Procedure Procedure Detail Performing Clinician Start: 12-04-2024 BLOOD CULTURE 2 Generic External Data Provider Start: 12-04-2024 BLOOD CULTURE 1 Generic External Data Provider Start: 10-08-2024 Gluc bld gluc mntr d ev cleared fda spec home use Rain Souza MD Work Phone: Start: 10-08-2024 [facility] UA (CLEAN/CATCH) MICROSCOPIC IF INDICATE Mckayla Blas MARKETING ANALYTICS ANALYST Work Phone: Start: 08-27-2024 ALL CBC WITH AUTO DIFF Generic External Data Provider Start: 05-27-2024 Gluc bld gluc mntr d ev cleared fda spec home use Rain Souza MD Work Phone: Start: 05-12-2024 [facility] CREATININE Generic External Data Provider Start: 12-14-2023 Mammography Rain urena MD Work Phone: Start: 11-22-2022 Mammography Mckayla clifford MARKETING ANALYTICS ANALYST Work Phone: Start: 10-08-2015 Microscopic observat ion [Identifier] in Cervix by Cyto stain Mckayla Blas MARKETING ANALYTICS ANALYST Work Phone: H/O: hysterectomy Elbert TIKA LARA Laparoscopic cholecystectomy Elbert ARAUZ Operative procedure on foot Elbert ARAUZ Plan of Treatment Date Care Activity Detail Author Start: 10-08-2025 Urine screening for protein Diabetes: Urine Protein Screening [facility] Start: 08-03-2025 Screening for malignant neoplasm of colon [facility] Start: 07-14-2025 Glaucoma screening Diabetes: R etinopathy Screening [facility] Start: 05-13-2025 Glaucoma screening Diabetes: R etinopathy Screening [facility] Start: 03-09-2025 Influenza vaccination Influenz a Vaccine (Season Ended) [facility] Start: 01-28-2025 End: 01-28-2025 Patient encounter procedure 01/28/2025 10:50 AM EDT Office Visit [facility] [address] [place] [address] Rain Souza MD [address] [place] [address] [facility] Start: 01-26-2025 End: 01-26-2025 Patient encounter procedure 01/26/2025 6:00 PM EDT Office Visit [facility] [address] [place] [phone] Mckayla Blas NP [address] [place] [phone] [facility] Start: 01-16-2025 Medicare Annual Wellness (AWV) Medicare Annual Wellness (AWV) [facility] Start: 01-07-2025 Hemoglobin A1c measurement Diabetes: Hemoglobin A1C [facility] Start: 12-15-2024 End: 12-27-2025 MG Breast - bilateral Screening Bilateral screening mammogram Imaging Routine Encounter for screening mammogram for malignant neoplasm of breast Expected: 12/15/2024 (Approximate), Expires: 12/27/2025 [facility] Work Phone: Comment on above: Expected: 12/15/2024 (Approximate), Expires: 12/27/2025 Start: 12-13-2024 Screening for malignant neoplasm of breast Mammogram [facility] Start: 11-11-2024 Urine screening for protein Diabetes: Urine Protein Screening [facility] Start: 10-27-2024 End: 10-27-2024 Patient encounter procedure 10/27/2024 2:00 PM EDT Office Visit [facility] [address] [place] [phone] Mckayla Blas NP [address] [place] [phone] [facility] Start: 10-08-2024 End: 10-08-2024 Patient encounter procedure 10/08/2024 11:20 AM EDT Office Visit [facility] [address] [place] [address] Rain Souza MD [address] [place] [address] [facility] Start: 08-27-2024 End: 08-27-2024 Patient encounter procedure 08/27/2024 5:30 PM EST Office Visit [facility] [address] [place] [address] Mckayla Blas NP [address] [place] [address] [facility] Start: 08-27-2024 End: 08-27-2025 25-hydroxyvitamin D3 [Mass/volume] in Serum or Plasma Vitamin D 25 hydroxy Lab Routine Vitamin deficiency Expected: 08/27/2024 (Approximate), Expires: 08/27/2025 [facility] Comment on above: Expected: 08/27/2024 (Approximate), Expires: 08/27/2025 Start: 08-27-2024 Hemoglobin A1c measurement Diabetes: Hemoglobin A1C [facility] Start: 08-27-2024 End: 08-27-2025 Hepatic function 2000 panel - Serum or Plasma Hepatic function panel Lab Routine Hyperlipidemia, unspecified (CMS/HCC) Expected: 08/27/2024 (Approximate), Expires: 08/27/2025 [facility] Comment on above: Expected: 08/27/2024 (Approximate), Expires: 08/27/2025 Start: 08-27-2024 End: 08-27-2025 Lipid 1996 panel - Serum or Plasma Lipid panel Lab Routine Mixed hyperlipidemia (CMS/HCC) Expected: 08/27/2024 (Approximate), Expires: 08/27/2025 [facility] Work Phone: Comment on above: Expected: 08/27/2024 (Approximate), Expires: 08/27/2025 Start: 08-27-2024 End: 08-27-2025 Microalbumin/Creatini ne panel in random Urine Microalbumin / creatinine, urine ratio Lab Routine Primary hypertension ([facility]) Type 2 diabetes mellitus with complication, with long-term current use of insulin ([facility]) Expected: 08/27/2024 (Approximate), Expires: 08/27/2025 [facility] Comment on above: Expected: 08/27/2024 (Approximate), Expires: 08/27/2025 Start: 08-27-2024 End: 08-27-2025 Urate [Mass/volume] in Serum or Plasma Uric acid Lab Routine Gout, unspecified cause, unspecified chronicity, unspecified site Expected: 08/27/2024 (Approximate), Expires: 08/27/2025 [facility] Comment on above: Expected: 08/27/2024 (Approximate), Expires: 08/27/2025 Start: 08-27-2024 End: 08-27-2025 Urinalysis complete panel - Urine Urinalysis with reflex microscopic (clean catch) Lab Routine Primary hypertension ([facility]) Type 2 diabetes mellitus with complication, with long-term current use of insulin ([facility]) Tobacco user Gout, unspecified cause, unspecified chronicity, unspecified site Expected: 08/27/2024 (Approximate), Expires: 08/27/2025 [facility] Comment on above: Expected: 08/27/2024 (Approximate), Expires: 08/27/2025 Start: 08-26-2024 End: 08-26-2024 Patient encounter procedure 08/26/2024 10:30 AM EST Office Visit [facility] [address] [place] [address] Rain Souza MD [address] [place] [address] [facility] Start: 07-14-2024 End: 07-14-2024 Patient encounter procedure 07/14/2024 6:30 PM EST Office Visit [facility] [address] [phone] Mckayla Blas, SILVANO [address] [place] [address] [facility] Start: 07-14-2024 End: 07-14-2024 Patient encounter procedure 07/14/2024 10:10 AM EST Office Visit [facility] [address] [place] [phone] Rain Souza MD [address] [place] [address] [facility] Start: 06-06-2024 Influenza vaccination Influenza Vacc ine (#1) [facility] Comment on above: Postponed from 03/09 (Patient Refused) Start: 05-27-2024 End: 05-27-2024 Patient encounter procedure 05/27/2024 9:50 AM EST Office Visit [facility] [address] [place] [address] Rain Souza MD [address] [place] [address] [facility] Start: 05-17-2024 Hemoglobin A1c measurement Diabetes: Hemoglobin A1C [facility] Start: 05-15-2024 End: 05-15-2024 Chart abstracting 05/15/2024 Abstract [facility] [address] [place] [address] Rain Souza MD [address] [place] [address] [facility] Start: 05-15-2024 End: 05-15-2024 Patient encounter procedure 05/15/2024 11:20 AM EST Office Visit [facility] [address] [place] [address] Rain Souza MD [address] [place] [address] [facility] Start: 04-17-2024 End: 04-17-2024 Patient encounter procedure 04/17/2024 3:40 PM EDT Office Visit [facility] [address] [place] [address] Mckayla Blas, SILVANO [address] [place] [phone] [facility] Start: 04-14-2024 End: 04-14-2024 Patient encounter procedure 04/14/2024 11:00 AM EDT Office Visit [facility] [address] [place] [phone] Mckayla Blas NP [address] [place] [phone] Arrived [facility] Comment on above: Arrived Start: 03-09-2024 Influenza vaccination Influenza Vacc ine (#1) [facility] Start: 02-19-2024 Hemoglobin A1c measurement Diabetes: Hemoglobin A1C [facility] Start: 11-24-2023 Urine screening for protein Diabetes: Urine Protein Screening [facility] Start: 11-23-2023 Screening for malignant neoplasm of breast Mammogram [facility] Start: 10-15-2023 End: 10-15-2023 Patient encounter procedure 10/15/2023 4:30 PM EDT Office Visit [facility] [address] [place] [id number] Mckayla Blas, MARKETING ANALYTICS ANALYST [address] [place] [phone] [facility] Start: 08-09-2023 Hemoglobin A1c measurement Diabetes: Hemoglobin A1C [facility] Start: 05-27-2021 Glaucoma screening Diabetes: R etinopathy Screening [facility] Start: 03-09-2020 Influenza vaccination Flu vacc ine (Season Ended) [place], [place] Start: 10-07-2018 Screening for malignant neoplasm of cervix [facility] Start: 2010 Lipid panel Lipid screen [place], [place] Start: 2000 Screening for malignant neoplasm of cervix HPV/Cotest [facility] Start: 1991 Screening for malignant neoplasm of cervix Cervical cancer screen [place], [place] Start: 1989 DTaP/Tdap/Td vaccine (1 - Tdap) DTaP/Tdap/Td vaccine (1 - Tdap) [place], [place] Start: 1985 [facility] screening [facility] [place] [place] Start: 1970 Medicare Annual Wellness (AWV) Medicare Annual Wellness (AWV) [facility] Start: 1970 Screening for malignant neoplasm of colon [facility] BLOOD CULTURE 1 BLOOD CULTURE 1 Lab Routine 12/04/2024 4:44 PM EDT [facility] BLOOD CULTURE 2 BLOOD CULTURE 2 Lab Routine 12/04/2024 5:28 PM EDT [facility] Immunizations Immunization Date Immunization Notes Care Provider [facility] 05-18-2023 influenza, injectabl e, quadrivalent, contains preservative Mckayla Blas NP Work Phone: [facility] 05-18-2023 influenza virus vacc ine, unspecified formulation Rain Souza MD Work Phone: [facility] 07-19-2021 SARS-CoV-2 (COVID-19 ) mRNA BNT-162b2 vax SARAHDONNY GANRY [facility] 10-28-2020 SARS-CoV-2 (COVID-19 ) mRNA BNT-162b2 vax SARAHMaizhuo [facility] 10-08-2020 SARS-CoV-2 (COVID-19 ) mRNA BNT-162b2 vax SARAHMaizhuo [facility] 04-16-2017 influenza virus vacc ine, H5N1, A/ (national stockpile) Mckayla Blas MARKETING ANALYTICS ANALYST Work Phone: [facility] 04-16-2017 influenza virus vacc ine, unspecified formulation Rain Souza MD Work Phone: [facility] 04-16-2017 influenza, unspecifi ed formulation Elbert ARAUZ [facility] 04-16-2017 pneumococcal polysaccharide vaccine, 23 valent Rain Souza MD Work Phone: [facility] 05-10-2016 influenza virus vacc ine, H5N1, A/ (national stockpile) Mckayla Blas MARKETING ANALYTICS ANALYST Work Phone: [facility] 05-10-2016 influenza virus vacc ine, unspecified formulation Rain Souza MD Work Phone: [facility] 05-10-2016 influenza, unspecifi ed formulation Elbert ARAUZ [facility] 05-02-2013 influenza virus vacc ine, whole virus Rain Souza MD Work Phone: [facility] 05-02-2013 influenza, injectabl e, quadrivalent, contains preservative Mckayla Blas NP Work Phone: [facility] 05-02-2013 influenza, whole Elbert BARBARA ERS [facility] 01-29-1998 measles, mumps and rubella virus vaccine Rain Souza MD Work Phone: [facility] Payers Date Payer Category Payer Medicare (Managed Care) [employer] [id number] 2023 Private Health Insurance [facility] [id number] 2023-Present [address] [address] [place] [address] [id number] 2023 Medicare [id number] 2023 Private Health Insurance [id number] 2018 Medicaid MEDICAID [facility] [id number] 2018-Present [phone] [address] [place] [address] Medicaid [id number] 2017 Medicare [id number] 1970 Unknown [id number] 2.16.840.1.721554.3.579.2. 647 1970 Unknown [id number] 2.16.840.1.260835.3.579.2. 593 1970 Unknown [id number] 2.16.840.1.548983.3.579.2. 593 1970 Unknown [id number] 2.16.840.1.388330.3.579.2. 593 1970 Unknown [id number] 2.16.840.1.230212.3.579.2. 593 1970 Unknown [id number] 2.16.840.1.494274.3.579.2. 593 1970 Unknown [id number] 2.16.840.1.659242.3.579.2. 593 1970 Unknown [id number] 2.16.840.1.357122.3.579.2. 593 1970 Unknown [id number] 2.16.840.1.424209.3.579.2. 593 1970 Unknown [id number] 2.16.840.1.912877.3.579.2. 593 1970 Unknown [id number] 2.16.840.1.609200.3.579.2. 593 1970 Unknown [id number] 2.16.840.1.571526.3.579.2. 593 1970 Unknown [id number] 2.16.840.1.590279.3.579.2. 593 1970 Unknown [id number] 2.16.840.1.954129.3.579.2. 593 1970 Unknown [id number] 2.16.840.1.680397.3.579.2. 593 1970 Unknown [id number] 2.16.840.1.061127.3.579.2. 593 1970 Unknown [id number] 2.16.840.1.467568.3.579.2. 593 1970 Unknown [id number] 2.16.840.1.158814.3.579.2. 593 1970 Unknown [id number] 2.16.840.1.484803.3.579.2. 593 1970 Unknown [id number] 2.16.840.1.682177.3.579.2. 593 1970 Unknown [id number] 2.16.840.1.007521.3.579.2. 593 1970 Unknown [id number] 2.16.840.1.402308.3.579.2. 593 1970 Unknown [id number] 2.16.840.1.820486.3.579.2. 593 1970 Unknown [id number] 2.16.840.1.925950.3.579.2. 727 1970 Unknown [id number] 2.16.840.1.716541.3.579.2. 727 1970 Unknown [id number] 2.16.840.1.855366.3.579.2. 1259 1970 Unknown [id number] 2.16.840.1.800686.3.579.2. 1259 1970 Unknown [id number] 2.16.840.1.427986.3.579.2. 1259 1970 Unknown [id number] 2.16.840.1.988397.3.579.2. 1259 1970 Unknown [id number] 2.16.840.1.814966.3.579.2. 1259 1970 Unknown [id number] 2.16.840.1.085785.3.579.2. 1259 1970 Unknown [id number] 2.16.840.1.006004.3.579.2. 1259 1970 Unknown [id number] 2.16.840.1.351945.3.579.2. 1259 1959 Medicaid [id number] 1959 Private Health Insurance [id number] 1959 Unknown [id number] .16.840.1.287767.19 Social History Date Type Detail Facility Start: 02-17-2014 End: 07-10-2023 Tobacco smoking status NHIS Current every day smoker [place], [place] Start: 02-17-1994 History of tobacco use Cigarette Smo ker [place] Start: 02-17-2014 End: 08-26-2024 Cigarettes smoked current (pack per day) - Reported [place] Start: 02-17-2014 Alcohol intake Current drinke r of alcohol (finding) [place], [place] Start: 02-17-2014 Alcohol Comment [place] Start: 1970 Sex Assigned At Not on file M [place], [place] Exposure to SARS-CoV -2 (event) Unable to assess [place] Start: 02-06-2022 Tobacco smoking status Smoker (findi terrence) [facility] Start: 07-10-2023 End: 08-26-2024 Sex Assigned At Female [facility] Start: 11-15-2022 End: 06-11-2024 Tobacco smoking status Heavy tobacco smoker (finding) [facility] Start: 07-10-2023 Tobacco use and exposure Smoke less tobacco non-user [facility] Start: 07-10-2023 End: 12-09-2024 Alcohol intake Lifetime non-drinker (finding) [facility] Within the last year , have you been afraid of your partner or ex-partner? No [facility] Do you belong to any clubs or organizations such as bahai groups, unions, fraternal or athletic groups, or [...] Equipment Origin al Text Equipment Identifier Dates [id number] Start: 01-18-2024 USE TO TEST BLOO D SUGAR 4 TIMES DAILY [id number] Start: 07-07-2024 Functional Status Date Assessment Result Facility 06-11-2024 Functional Status N/A [facility] 11-15-2022 Functional Status N/A [facility] 02-06-2022 Functional Status N/A [facility] Clinical Notes 01-19-2022 to 12-09-2024 Mckayla Blas NP - 12/09/2024 11:27 AM EDTHPAOLA DALY - 12/09/2024 10:00 AM Savannah Blas NP - 12/09/2024 10:00 AM Savannah Blas NP - 12/09/2024 7:26 AM EDTPatient Instructions Note Date & Type Note Facility 12-09-2024 History of Present illness Narrative Associated Problem(s): Cellulitis of left lower extremity Finish atbs Keep appt with wound care A febrile Will call me if worsening in sxs Pt has wound care appt at 2PM Images from the original note were not included. Mitzi Macias is a 54 y.o. female presents with chief complaint of Hospital Follow-up HPI: ER follow up: Event happened 12/04/24: chills, fever, very tired did not know what was wrong, could not be aroused at home. Called EMS , they ultimately gave her Narcan, which she did become more alert after getting this, but again very groggy. Pt denies any inappropriate medication use, she and her are quite upset about the narcan, as she does not miss us her prescribed medications, and feel as though this paints her in a bad light. She was ultimately taken to [facility] ER, no tox screen was done [...] 25 mg, Oral, 2 times daily HYDROcodone-acetaminophen (Cheyenne) 5-325 MG tablet 1 tablet, 3 times [...] CT Albuminuria 09/17/2023 Angiomyolipoma Anxiety and depression ([facility]) 07/10/2023 Asthma 07/10/2023 Body mass index (BMI) 50.0-59.9, adult ([facility]) Cellulitis of left lower extremity Cervical cancer ([facility]) 09/17/2023 Chronic pain of both knees 09/17/2023 COPD (chronic obstructive pulmonary disease) ([facility]) 07/10/2023 COPD exacerbation ([facility]) 09/17/2023 Decreased functional mobility 09/17/2023 Diabetic neuropathy ([facility]) 07/10/2023 Dietary counseling and surveillance Edema 07/10/2023 Elevated sed rate Elevated WBC count Essential (primary) hypertension ([facility]) GERD (gastroesophageal reflux disease) 09/17/2023 Hyperlipidemia ([facility]) 09/17/2023 Hypertension ([facility]) 07/10/2023 Insomnia 09/17/2023 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 ([facility]) Lower extremity edema 09/17/2023 Mixed hyperlipidemia ([facility]) Morbid (severe) obesity due to excess calories ([facility]) Obstructive sleep apnea 07/10/2023 PAD (peripheral artery disease) ([facility]) 09/17/2023 Pancreatitis 09/17/2023 Pneumonia 09/17/2023 Proteinuria, unspecified Pulmonary hypertension ([facility]) 09/17/2023 Radiculopathy, lumbar region 09/17/2023 Tobacco user 09/17/2023 Type 2 diabetes mellitus with complication, with long-term current use of insulin ([facility]) 07/10/2023 Unilateral primary osteoarthritis, right [...] Size: Large adult) Pulse 71 Temp 98 F (Temporal) Resp 20 SpO2 (!) 88% Smoking [...] Problem List Items Addressed This Visit Hypertension ([facility]) Please check blood pressure daily and record DASH diet Limit caffeine Take medication as directed Contact office if chest pain, pressure, dizziness, shortness of breath, swelling legs Recommend slow position changes Current meds: hydralazine, lisinopril, Type 2 diabetes mellitus with complication, with long-term current use of insulin ([facility]) Check blood sugars daily, notify [...] secondary to her steroids Anxiety and depression ([facility]) Current meds: elavil, duloxtine, COPD exacerbation ([facility]) Recent ER visit for unresponsiveness , found to have fever and elevated WBC Sent home with steroids and atb Breathing is better and she feels back to her normal baseline Does have home O2, she is not wearing this today Pulmonary hypertension ([facility]) Has seen [facility] Cardiology Morbid (severe) obesity due to excess calories ([facility]) Discussed with patient their BMI (actual, verses [...] Will call me if worsening in sxs Associated Problem(s): Fever Tylenol prn fever Finish atb's Associated Problem(s): Anxiety and depression (CMS/HCC) Current meds: elavil, duloxtine, Associated Problem(s): Type [...] Sugars are elevated, secondary to her steroids Associated Problem(s): Morbid (severe) obesity due to [...] currently taking mounjaro for DM Associated Problem(s): Pulmonary hypertension (CMS/HCC) Has seen [facility] Cardiology Associated Problem(s): Hypertension (CMS/HCC) Please check blood pressure daily and record DASH diet Limit caffeine Take medication as directed Contact office if chest pain, pressure, dizziness, shortness of breath, swelling legs Recommend slow position changes Current meds: hydralazine, lisinopril, Associated Problem(s): COPD exacerbation (CMS/HCC) Recent ER visit for unresponsiveness , found to have fever and elevated WBC Sent home with steroids and atb Breathing is better and she feels back to her normal baseline Does have home O2, she is not wearing this today documented in this encounter [facility] 12-09-2024 Instructions Mckayla Blas NP - 12/09/2024 10:00 AM EDT Keep appt with wound care today Keep fu with me, sooner if needed documented in this encounter [facility] 10-27-2024 History of Present illness Narrative Associated [...] PPI Associated Problem(s): PAD (peripheral artery disease) ([facility]) Asa, statin Quit smoking BP [...] 25 mg, Oral, 2 times daily HYDROcodone-acetaminophen (Cheyenne) 5-325 MG tablet 1 tablet, 3 times [...] CT Albuminuria 09/17/2023 Angiomyolipoma Anxiety and depression ([facility]) 07/10/2023 Asthma 07/10/2023 Body mass index (BMI) 50.0-59.9, adult ([facility]) Cellulitis of left lower extremity Cervical cancer ([facility]) 09/17/2023 Chronic pain of both knees 09/17/2023 COPD (chronic obstructive pulmonary disease) ([facility]) 07/10/2023 COPD exacerbation ([facility]) 09/17/2023 Decreased functional mobility 09/17/2023 Diabetic neuropathy ([facility]) 07/10/2023 Dietary counseling and surveillance Edema 07/10/2023 Elevated sed rate Elevated WBC count Essential (primary) hypertension ([facility]) GERD (gastroesophageal reflux disease) 09/17/2023 Hyperlipidemia ([facility]) 09/17/2023 Hypertension ([facility]) 07/10/2023 Insomnia 09/17/2023 shelter (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 ([facility]) Lower extremity edema 09/17/2023 Mixed hyperlipidemia ([facility]) Morbid (severe) obesity due to excess calories ([facility]) Obstructive sleep apnea 07/10/2023 PAD (peripheral artery disease) ([facility]) 09/17/2023 Pancreatitis 09/17/2023 Pneumonia 09/17/2023 Proteinuria, unspecified Pulmonary hypertension ([facility]) 09/17/2023 Radiculopathy, lumbar region 09/17/2023 Tobacco user 09/17/2023 Type 2 diabetes mellitus with complication, with long-term current use of insulin ([facility]) 07/10/2023 Unilateral primary osteoarthritis, right hip 09/17/2023 Vaginal yeast infection 08/17/2023 Venous insufficiency 09/17/2023 Vitamin D deficiency, unspecified Past Surgical History: Procedure Laterality Date CERVIX SURGERY removal of pre cancer cell from cervix CHOLECYSTECTOMY 2018 HYSTERECTOMY PARTIAL HYSTERECTOMY 2002 TOE SURGERY Left [...] List Items Addressed This Visit Diabetic neuropathy ([facility]) - Primary Continue with cintia hudson mgmt is prescribing OARRS reviewed Fu in 3 months Goal: tighter glucose control, this has been improving, latest A1c is 7.4%!!! Hypertension ([facility]) Please check blood pressure daily and record DASH diet Limit caffeine Take medication as directed Contact office if chest pain, pressure, dizziness, shortness of breath, swelling legs Recommend slow position changes Current meds: hydralazine, lisinopril, Relevant Medications hydrALAZINE (Apresoline) 25 MG tablet lisinopril 20 MG tablet Type 2 diabetes mellitus with complication, with long-term current use of insulin ([facility]) Check blood sugars daily, notify [...] 81 MG chewable tablet Anxiety and depression ([facility]) Current meds: elavil, duloxtine, Relevant Medications DULoxetine (Cymbalta) [address] capsule Bilateral lower extremity edema Limit sodium , elevate legs, furosemide Relevant Medications furosemide (Lasix) 20 MG tablet potassium chloride ER (Micro-K) 10 MEQ ER capsule furosemide (Lasix) 40 MG tablet Insomnia Relevant Medications amitriptyline (Elavil) 25 MG tablet PAD (peripheral artery disease) (CMS/HCC) Asa, statin [...] Morbid (severe) obesity due to excess calories ([facility]) Discussed with patient their BMI (actual, verses [...] mounjaro for DM Chronic diastolic heart failure (CMS/HCC) Current meds; asa, farxiga, lasix, hydralazine, lisinopril, Follows with [facility] Reviewed 08/02 notes Cigarette nicotine dependence without complication Is currently using chantix, and is doing well, less desire, smoking less Vitamin D deficiency, unspecified Relevant Medications ergocalciferol (Vitamin D2) 1.25 MG (17076 UT) capsule Gastro-esophageal reflux disease without esophagitis Relevant Medications omeprazole (PriLOSEC) [address] capsule Other Visit Diagnoses Type 2 diabetes mellitus with unspecified complications Relevant Medications dapagliflozin (Farxiga) 10 MG Associated Problem(s): Cigarette nicotine dependence without complication Is currently using chantix, and is doing well, less desire, smoking less Associated Problem(s): Anxiety and depression (CMS/HCC) Current meds: elavil, duloxtine, Associated Problem(s): Type [...] A1c is 7.4%!!! documented in this encounter [facility] 10-27-2024 Instructions Mckayla Blas NP - 10/27/2024 2:00 PM EDT No dose changes in meds You will be due for mammogram I will send order to [facility], they should call you to schedule If no call, please call [phone] documented in this encounter [facility] 10-08-2024 History of Present illness Narrative Images [...] or chew. ergocalciferol (Vitamin D2) 1.25 MG (19476 UT) capsule TAKE 1 CAPSULE BY MOUTH [...] 25 mg, Oral, 2 times daily HYDROcodone-acetaminophen (Cheyenne) 5-325 MG tablet 1 tablet, 3 times [...] CT Albuminuria 09/17/2023 Angiomyolipoma Anxiety and depression ([facility]) 07/10/2023 Asthma ([facility]) 07/10/2023 Body mass index (BMI) 50.0-59.9, adult ([facility]) Cellulitis of left lower extremity Cervical cancer ([facility]) 09/17/2023 Chronic pain of both knees 09/17/2023 COPD (chronic obstructive pulmonary disease) ([facility]) 07/10/2023 COPD exacerbation ([facility]) 09/17/2023 Decreased functional mobility 09/17/2023 Diabetic neuropathy ([facility]) 07/10/2023 Dietary counseling and surveillance Edema 07/10/2023 Elevated sed rate Elevated WBC count Essential (primary) hypertension ([facility]) GERD (gastroesophageal reflux disease) 09/17/2023 Hyperlipidemia ([facility]) 09/17/2023 Hypertension ([facility]) 07/10/2023 Insomnia 09/17/2023 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 ([facility]) Lower extremity edema 09/17/2023 Mixed hyperlipidemia ([facility]) Morbid (severe) obesity due to excess calories ([facility]) Obstructive sleep apnea 07/10/2023 PAD (peripheral artery disease) ([facility]) 09/17/2023 Pancreatitis 09/17/2023 Pneumonia 09/17/2023 Proteinuria, unspecified Pulmonary hypertension ([facility]) 09/17/2023 Radiculopathy, lumbar region 09/17/2023 Tobacco user 09/17/2023 Type 2 diabetes mellitus with complication, with long-term current use of insulin ([facility]) 07/10/2023 Unilateral primary osteoarthritis, right [...] with long-term current use of insulin (CMS/HCC) - POCT glucose manually resulted - POCT [...] months (around 02/07/2025). documented in this encounter [facility] 08-27-2024 History of Present illness Narrative Associated [...] or chew. ergocalciferol (Vitamin D2) 1.25 MG (76798 UT) capsule TAKE 1 CAPSULE BY MOUTH [...] 25 mg, Oral, 2 times daily HYDROcodone-acetaminophen (Cheyenne) 5-325 MG tablet 1 tablet, 3 times [...] CT Albuminuria 09/17/2023 Angiomyolipoma Anxiety and depression ([facility]) 07/10/2023 Asthma ([facility]) 07/10/2023 Body mass index (BMI) 50.0-59.9, adult ([facility]) Cellulitis of left lower extremity Cervical cancer ([facility]) 09/17/2023 Chronic pain of both knees 09/17/2023 COPD (chronic obstructive pulmonary disease) ([facility]) 07/10/2023 COPD exacerbation ([facility]) 09/17/2023 Decreased functional mobility 09/17/2023 Diabetic neuropathy ([facility]) 07/10/2023 Dietary counseling and surveillance Edema 07/10/2023 Elevated sed rate Elevated WBC count Essential (primary) hypertension ([facility]) GERD (gastroesophageal reflux disease) 09/17/2023 Hyperlipidemia ([facility] [place]) 09/17/2023 Hypertension ([facility]) 07/10/2023 Insomnia 09/17/2023 shelter (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 ([facility]) Lower extremity edema 09/17/2023 Mixed hyperlipidemia ([facility]) Morbid (severe) obesity due to excess calories ([facility]) Obstructive sleep apnea 07/10/2023 PAD (peripheral artery disease) ([facility]) 09/17/2023 Pancreatitis 09/17/2023 Pneumonia 09/17/2023 Proteinuria, unspecified Pulmonary hypertension ([facility]) 09/17/2023 Radiculopathy, lumbar region 09/17/2023 Tobacco user 09/17/2023 Type 2 diabetes mellitus with complication, with long-term current use of insulin ([facility]) 07/10/2023 Unilateral primary osteoarthritis, right hip 09/17/2023 [...] Items Addressed This Visit Diabetic neuropathy (CMS/HCC) Continue with lyrica, pain mgmt is prescribing OARRS reviewed Fu in 3 months Goal: tighter glucose control Hypertension (CMS/HCC) Please check blood pressure daily [...] complication, with long-term current use of insulin ([facility]) Check blood sugars daily, notify [...] / creatinine, urine ratio Anxiety and depression ([facility]) - Primary Current meds: elavil, duloxtine, PHQ [...] PPI Malignant neoplasm of cervix uteri, unspecified ([facility]) Had in the past, had hysterectomy Tobacco user The patient has been advised of the risks of continued smoking: stroke, [place], all forms of cancer, lung disease, and [...] Urinalysis with reflex microscopic (clean catch) Hyperlipidemia ([facility]/HCC) On statin therapy Check labs yearly and [...] Medications Varenicline Tartrate, Starter, (Chantix Starting Month Graeme) 0.5 MG X 11 & 1 MG [...] of the risks of continued smoking: stroke, [place], all forms of cancer, lung disease, and [...] Problem(s): Malignant neoplasm of cervix uteri, unspecified (CMS/HCC) Had in the past, had hysterectomy Associated [...] Asthma (CMS/HCC) Current meds: albuterol, duoneb, 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 year old female patient being seen for follow-up on diastolic heart failure, shortness of breath and hypertension Patient Active Problem List Diagnosis Abdominal pannus Adrenal mass 1 cm to 4 cm in diameter ([facility]/HCC) Albuminuria RAGHU positive Anxiety and depression Arthritis Asthma Bilateral lower extremity edema BMI 50.0-59.9, adult ([facility]) Candidiasis of breast Cardiomegaly Cervical cancer ([facility]/HCC) Chronic pain of both knees Closed fracture of upper end of humerus Acute respiratory distress syndrome ([facility]) Decreased functional mobility Diabetic neuropathy ([facility]) Easy bruising GERD (gastroesophageal reflux disease) Gout Headache Hyperlipidemia Hypertension Insomnia Kidney stone Left flank pain Mixed incontinence Class 3 severe obesity with serious comorbidity and body mass index (BMI) of 50.0 to 59.9 in adult ([facility]) Non-seasonal allergic rhinitis Obstructive sleep apnea Other chronic pain PAD (peripheral artery disease) ([facility]) Pneumonia Encounter for screening mammogram for malignant neoplasm of breast Pulmonary hypertension ([facility]) Radiculopathy, lumbar region Current smoker Type 2 diabetes mellitus with complication, with long-term current use of insulin ([facility]) Unilateral primary osteoarthritis, right hip Vaginal yeast infection Venous insufficiency Bad odor of urine Critical limb ischemia of right lower extremity ([facility]) Hyperpigmentation of skin 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 2 diabetes mellitus ([facility]/HCC) Myelolipoma of adrenal gland Venous ulcer of right leg ([facility]) HPI Patient was has history [...] Diagnosis Date COPD (chronic obstructive pulmonary disease) ([facility]/HCC) Diabetes mellitus (CMS/HCC) Hyperlipidemia Hypertension Sleep apnea [...] , Rfl: ergocalciferol (Vitamin D-2) 1.25 MG (51025 Units) capsule, Take 1.25 mg by mouth., [...] and at bedtime., Disp: , Rfl: HYDROcodone-acetaminophen (Cheyenne) 5-325 mg tablet, TAKE 1 TABLET BY [...] TWICE DAILY, Disp: (more content not included)... [facility] 07-14-2024 History of Present illness Narrative [...] or chew. ergocalciferol (Vitamin D2) 1.25 MG (26370 UT) capsule TAKE 1 CAPSULE BY MOUTH ONE TIME PER WEEK furosemide (LASIX) 40 mg, Oral, Daily furosemide (LASIX) 20 mg, Oral, Daily PRN, Take in the afternoon as needed hydrALAZINE (APRESOLINE) 25 mg, Oral, 2 times daily HYDROcodone-acetaminophen (Cheyenne) 5-325 MG tablet 1 tablet, 3 times [...] CT Albuminuria 09/17/2023 Angiomyolipoma Anxiety and depression ([facility]) 07/10/2023 Asthma ([facility]) 07/10/2023 Body mass index (BMI) 50.0-59.9, adult ([facility]) Cellulitis of left lower extremity Cervical cancer ([facility]) 09/17/2023 Chronic pain of both knees 09/17/2023 COPD (chronic obstructive pulmonary disease) ([facility]) 07/10/2023 COPD exacerbation ([facility]) 09/17/2023 Decreased functional mobility 09/17/2023 Diabetic neuropathy ([facility]) 07/10/2023 Dietary counseling and surveillance Edema 07/10/2023 Elevated sed rate Elevated WBC count Essential (primary) hypertension ([facility]) GERD (gastroesophageal reflux disease) 09/17/2023 Hyperlipidemia ([facility]) 09/17/2023 Hypertension ([facility]) 07/10/2023 Insomnia 09/17/2023 shelter (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 ([facility]) Lower extremity edema 09/17/2023 Mixed hyperlipidemia ([facility]) Morbid (severe) obesity due to excess calories ([facility]) Obstructive sleep apnea 07/10/2023 PAD (peripheral artery disease) ([facility]) 09/17/2023 Pancreatitis 09/17/2023 Pneumonia 09/17/2023 Proteinuria, unspecified Pulmonary hypertension ([facility]) 09/17/2023 Radiculopathy, lumbar region 09/17/2023 Tobacco user 09/17/2023 Type 2 diabetes mellitus with complication, with long-term current use of insulin ([facility]) 07/10/2023 Unilateral primary osteoarthritis, right hip 09/17/2023 [...] List Items Addressed This Visit Diabetic neuropathy ([facility]) Continue with lyrica AILEENRRS reviewed Fu in 3 months COPD (chronic obstructive pulmonary disease) ([facility] [place]) Stable at this time, no changes in meds Encouraged smoking cessation Cont with dr Yañez Hypertension ([facility]) - Primary Please check blood pressure daily and record DASH diet Limit caffeine Take medication as directed Contact office if chest pain, pressure, dizziness, shortness of breath, swelling legs Recommend slow position changes Current meds: hydralazine, lisinopril, Type 2 diabetes mellitus with complication, with long-term current use of insulin ([facility]) Check blood sugars daily, notify [...] take over prescribing PAD (peripheral artery disease) ([facility]) Asa, statin Quit smoking BP [...] of the risks of continued smoking: stroke, [place], all forms of cancer, lung disease, and [...] 1 cm to 4 cm in diameter ([facility]/HCC) Continue with Urology Kidney stone Continue with Urology Non-seasonal allergic rhinitis Relevant Medications cetirizine (ZyrTEC) 10 MG tablet Critical limb ischemia of right lower extremity ([facility]) Saw vascular, does have narrowing in arteries in legs, and thus the wounds not healing At this point they strongly urge to quit smoking or risk limb amputation Cont asa and statin Also good blood pressure and sugar control Venous ulcer of right leg ([facility]) Encounter for smoking cessation counseling Relevant Medications nicotine (Nicoderm, Step 1) 21 MG/24HR patch Other Visit Diagnoses Type 2 diabetes mellitus with unspecified complications ([facility]) Quitting smokinppd, chantix not helped, ] Face time with pt, spent 15 minutes with pt Associated Problem(s): Tobacco user The patient has been advised of the risks of continued smoking: stroke, [place], all forms of cancer, lung disease, and [...] complication, with long-term current use of insulin ([facility]) Check blood sugars daily, notify [...] Problem(s): Diabetic neuropathy (CMS/HCC) Continue with tristan KITA reviewed Fu in 3 months documented in this encounter [facility] 06-11-2024 Hospital Discharge instructions Patient [...] require a prescription. You can also purchase hxts-kau-hssdout medicines. Medicines may have nicotine in them [...] and encouragement. Call telephone quitlines, such as 9-141-BERN-NOW, reach out to support groups, or work [...] provider. Document Revised: 06/16/2022 Document Reviewed: 06/16/2022 [employer] Patient Education 2023 [employer]. 06/11/2024 10:39:22 Dietary Guidelines to Help Prevent [...] include: ?8 oz (237 mL) of milk, mmgrdso-wnsaejhjyqhj-nyqjh milk, and calcium-fortifiedfruit juice. Calcium-fortified means that [...] ?Spinach (cooked), rhubarb, beets, sweet potatoes, and Dominican chard. ?Peanuts. ?Potato chips, eritrean fries, and baked potatoes with skin on. ?Nuts and nut products. ?Chocolate. If you regularly take a diuretic medicine, make sure to eat at least 1 or 2 servings of fruits or vegetables that are high in potassium each day. These include: ?Avocado. ?Banana. ?Camas, prune, carrot, or tomato juice. ?Baked potato. [...] magnesium, fish oil, or vitamin B6. Take eetx-imz-yicjmip and prescription medicines only as told by [...] Casseroles. Pizza. Lasagna. Frozen meals. Potato chips. Gabonese fries. The items listed above may not [...] provider. Document Revised: 10/05/2022 Document Reviewed: 10/05/2022 [employer] Patient Education 2023 [employer]. Follow Up Care 05/06/2024 08:24:56 With:REGLA PHIPPS, Elbert Joya, URL Address: [facility] [address], [place] [address]- When: Unknown [facility] 05-27-2024 History of Present illness Narrative [...] or chew. ergocalciferol (Vitamin D2) 1.25 MG (93425 UT) capsule TAKE 1 CAPSULE BY MOUTH ONE TIME PER WEEK furosemide (LASIX) 20 mg, Oral, Daily PRN, Take in the afternoon as needed furosemide (LASIX) 40 mg, Oral, Daily Glucose Blood (ACCU-CHEK JAQUI PLUS ) 4 times daily hydrALAZINE (APRESOLINE) 25 mg, Oral, 2 times daily HYDROcodone-acetaminophen (Cheyenne) 5-325 MG tablet 1 tablet, 3 times [...] CT Albuminuria 09/17/2023 Angiomyolipoma Anxiety and depression ([facility]) 07/10/2023 Asthma ([facility]) 07/10/2023 Body mass index (BMI) 50.0-59.9, adult ([facility]) Cellulitis of left lower extremity Cervical cancer ([facility]) 09/17/2023 Chronic pain of both knees 09/17/2023 COPD (chronic obstructive pulmonary disease) ([facility]) 07/10/2023 COPD exacerbation ([facility]) 09/17/2023 Decreased functional mobility 09/17/2023 Diabetic neuropathy ([facility]) 07/10/2023 Dietary counseling and surveillance Edema 07/10/2023 Elevated sed rate Elevated WBC count GERD (gastroesophageal reflux disease) 09/17/2023 Hyperlipidemia ([facility]) 09/17/2023 Hypertension ([facility]) 07/10/2023 Insomnia 09/17/2023 shelter (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 ([facility]) Lower extremity edema 09/17/2023 Morbid (severe) obesity due to excess calories ([facility]) Obstructive sleep apnea 07/10/2023 PAD (peripheral artery disease) ([facility]) 09/17/2023 Pancreatitis 09/17/2023 Pneumonia 09/17/2023 Proteinuria, unspecified Pulmonary hypertension ([facility]) 09/17/2023 Radiculopathy, lumbar region 09/17/2023 Tobacco user 09/17/2023 Type 2 diabetes mellitus with complication, with long-term current use of insulin ([facility]) 07/10/2023 Unilateral primary osteoarthritis, right [...] hyperglycemia, with long-term current use of insulin ([facility]) - POCT glucose manually resulted - POCT glycosylated hemoglobin (Hb A1C) docked device We will continue with Lantus 58, lispro 02/16/12 according to meal size, Mounjaro 15 mg once weekly, Farxiga 5 mg once a day Encounter for dietary consultation Vitamin D deficiency Primary hypertension ([facility]) To follow with her PCP Insulin long-term use ([facility]) Hyperlipemia, mixed ([facility]) Continue with Zocor 10 mg once daily Microalbuminuria Class 3 severe obesity due to excess calories with serious comorbidity and body mass index (BMI) of 50.0 to 59.9 in adult ([facility]) Diet and exercise reviewed with the patient Follow up in about 3 months (around 08/27/2024). documented in this encounter [facility] 04-14-2024 History of Present illness Narrative Associated Problem(s): Hyperpigmentation of skin Will try cerevue ointment to see if helps Associated Problem(s): Tobacco user Urged to quit Associated Problem(s): Type 2 diabetes mellitus with complication, with long-term current use of insulin ([facility]) Check blood sugars daily, follow [...] being taken. She does not see a 1st pressman.Eye exam is not current. Hypertension This is [...] or chew. ergocalciferol (Vitamin D2) 1.25 MG (54233 UT) capsule TAKE 1 CAPSULE BY MOUTH ONE TIME PER WEEK furosemide (LASIX) 20 mg, Oral, Daily PRN, Take in the afternoon as needed furosemide (LASIX) 40 mg, Oral, Daily Glucose Blood (ACCU-CHEK JAQUI PLUS ) 4 times daily HumaLOG KWIKPEN 100 UNIT/ML injection Subcutaneous hydrALAZINE (APRESOLINE) 25 mg, Oral, 2 times daily HYDROcodone-acetaminophen (Cheyenne) 5-325 MG tablet 1 tablet, 3 times [...] CT Albuminuria 09/17/2023 Angiomyolipoma Anxiety and depression ([facility]) 07/10/2023 Asthma ([facility]) 07/10/2023 Cellulitis of left lower extremity Cervical cancer ([facility]) 09/17/2023 Chronic pain of both knees 09/17/2023 COPD (chronic obstructive pulmonary disease) ([facility]) 07/10/2023 COPD exacerbation ([facility]) 09/17/2023 Decreased functional mobility 09/17/2023 Diabetic neuropathy ([facility]) 07/10/2023 Edema 07/10/2023 Elevated sed rate Elevated WBC count GERD (gastroesophageal reflux disease) 09/17/2023 Hyperlipidemia ([facility]) 09/17/2023 Hypertension ([facility]) 07/10/2023 Insomnia 09/17/2023 Lower extremity edema 09/17/2023 Obstructive sleep apnea 07/10/2023 PAD (peripheral artery disease) ([facility]) 09/17/2023 Pancreatitis 09/17/2023 Pneumonia 09/17/2023 Pulmonary hypertension ([facility]) 09/17/2023 Radiculopathy, lumbar region 09/17/2023 Tobacco user 09/17/2023 Type 2 diabetes mellitus with complication, with long-term current use of insulin ([facility]) 07/10/2023 Unilateral primary osteoarthritis, right [...] List Items Addressed This Visit Diabetic neuropathy ([facility]) Continue with tristan EAST reviewed Fu in 3 months Relevant Medications pregabalin (Lyrica) 300 MG capsule COPD (chronic obstructive pulmonary disease) ([facility]) - Primary Stable at this time, no changes in meds Encouraged smoking cessation Cont with dr Yañez Hypertension ([facility]) Stable on current meds Refill meds Relevant Medications hydrALAZINE (Apresoline) 25 MG tablet lisinopril 20 MG tablet Type 2 diabetes mellitus with complication, with long-term current use of insulin ([facility]) Check blood sugars daily, follow [...] 81 MG chewable tablet Anxiety and depression ([facility]) Relevant Medications DULoxetine (Cymbalta) [address] capsule Bilateral lower extremity edema Stable on current meds Insomnia Relevant Medications amitriptyline (Elavil) 25 MG tablet Tobacco user Urged to quit Non-seasonal allergic rhinitis Relevant Medications cetirizine (ZyrTEC) 10 MG tablet Hyperpigmentation of skin Will try cerevue ointment to see if helps Other Visit Diagnoses Type 2 diabetes mellitus with unspecified complications ([facility]) Relevant Medications dapagliflozin (Farxiga) 10 MG Gastro-esophageal reflux disease without esophagitis Relevant Medications omeprazole (PriLOSEC) [address] capsule Edema, unspecified Relevant Medications potassium chloride ER (Micro-K) 10 MEQ ER capsule Edema Relevant Medications potassium chloride ER (Micro-K) 10 MEQ ER capsule Chronic obstructive pulmonary disease, unspecified (CMS/HCC) Relevant Medications Roflumilast 500 MCG tablet documented in this encounter [facility] 11-14-2023 Note ID Cardiology - [facility] Subjective Mitzi Macias is a 53 y.o. year old female being seen as new patient to establish care. Ref from Mckayla Blas CNP for pulmonary hypertension. She had echo in Aug 2023 while inpatient at [facility] for pneumonia and COPD exacerbation. Denies [...] in early [address] [facility] with hypoxemia and treated as [...] wheelchair Skin: Gene (more content not included)... [facility] 11-15-2022 Hospital Discharge instructions Patient Education [...] include: ?8 oz (237 mL) of milk, wsdxnox-lulsnifuqisa-yiktk milk, and calcium-fortifiedfruit juice. Calcium-fortified means that [...] ?Spinach (cooked), rhubarb, beets, sweet potatoes, and Dominican chard. ?Peanuts. ?Potato chips, eritrean fries, and baked potatoes with skin on. ?Nuts and nut products. ?Chocolate. If you regularly take a diuretic medicine, make sure to eat at least 1 or 2 servings of fruits or vegetables that are high in potassium each day. These include: ?Avocado. ?Banana. ?Camas, prune, carrot, or tomato juice. ?Baked potato. [...] magnesium, fish oil, or vitamin B6. Take davh-kwm-ebmxtnz and prescription medicines only as told by [...] Casseroles. Pizza. Lasagna. Frozen meals. Potato chips. Gabonese fries. The items listed above may not [...] provider. Document Revised: 03/06/2022 Document Reviewed: 03/06/2022 [employer] Patient Education 2022 [employer]. Follow Up Care 02/06/2022 11:44:09 With:SARAH VEGA PA-C, URL Address: [address] [place] [id number] When: Unknown [facility] 08-24-2022 Note CONSULTATION CONSULTATION DATE: 08/24/2022 [...] We maintain her on pain medication with Cheyenne 5/325 t.i.d., diclofenac 75 mg b.i.d. Her [...] her at this point. A refill for Cheyenne 5/325 t.i.d. and diclofenac 75 mg b.i.d. will be sent to the pharmacy. Vitamin compliance and nutrition were discussed and enforced. I did highly encourage her to use exercise bands to increase the strength in her lower extremities. We will see her in three months' time, unless otherwise indicated, and patient agrees. [facility] 05-11-2022 Note CONSULTATION CONSULTATION DATE: [...] 150. Medications include Lyrica 300 mg b.i.d., Cheyenne 5/325 t.i.d., diclofenac 75 mg b.i.d. and [...] her medications today. We will maintain Lyrica, Cheyenne and diclofenac at the set dose and frequency. We will follow-up in the clinic in three months' time. The patient is in agreement to this. Vitamin importance and nutrition were discussed. [facility] 04-20-2022 Note CONSULTATION CONSULTATION DATE: [...] medications include Tylenol, Lyrica 300 mg b.i.d., Cheyenne 5/325 t.i.d., amitriptyline, diclofenac and duloxetine. Patient's [...] up in the clinic. [facility] 03-08-2022 Evaluation note Encounter Date [...] to the DANIEL. Thrombocytopenia is unclear etiology. [facility] 08-15-2022 Evaluation note* Encounter Date Diagnosis [...] follow with Dr. Souza and Dr. Arauz. [facility] 08-01-2022 Hospital Discharge instructions Patient Education [...] fried and sweet foods. General instructions Take [id number]-vpqfbkp and prescription medicines only as told by [...] 04/21/2010 Document Revised: 10/16/2019 Document Reviewed: 07/11/2018 [employer] Patient Education 2020 [employer]. Follow Up Care 01/05/2022 12:02:03 With:REGLA PHIPPS, Elbert Joya, MANISHL Address: [facility] [address] , [place] [address]- [phone] When:Within 6 Month(s) Comments:w/ repeat CT A/P [facility] [facility] 07-14-2022 NoteCONSULTATION PROCEDURE DATE: 01/19/2022 PRE [...] pattern and the patient tolerated it well. [facility] Signed and Approved by: GIL VALENZUELA . 01/27/2022 14:15:00[facility]07-14-2022 NoteCONSULTATION CONSULTATION DATE: 01/19/2022 This [...] today. Medications include Lyrica 300 mg b.i.d., Cheyenne 5/325 t.i.d., diclofenac 75 mg b.i.d. and [...] in three months' time unless otherwise indicated. [facility] Signed and Approved by: GIL VALENZUELA . 01/27/2022 14:15[facility]00[facility]ments Appointment Date:08/14/2022 09:15:00 AM Scheduled Provider:Elbert ARAUZ MD Location:[facility] Appointment Type:URO Office Visit [facility] evaluation + Plan note Future Appointments Appointment Date:04/22/2024 10:00:00 AM Scheduled Provider:SRAAH VEGA PA-C Location:[facility] Appointment Type:URO Office Visit [facility] evaluation note* Diagnosis Type 2 diabetes mellitus with unspecified complications ([facility]) Edema, unspecified Edema [facility] Diagnosis Vaginal yeast infection- Primary Candidiasis of vulva and vagina documented in [facility]* Diagnosis Primary hypertension ([facility]/HCC)- Primary Unspecified essential hypertension Insomnia Insomnia, unspecified Type 2 diabetes mellitus with complication, with long-term current use of insulin ([facility]) Non-seasonal allergic rhinitis, unspecified trigger Type 2 diabetes mellitus with unspecified complications ([facility]/HCC) Anxiety and depression ([facility]/HCC) Gastro-esophageal reflux disease without esophagitis Edema, unspecified Edema Diabetic polyneuropathy associated with type 2 diabetes mellitus ([facility]) Chronic obstructive pulmonary disease, unspecified [...] with long-term current use of insulin ([facility]) Anxiety and depression (CMS/HCC) Bilateral lower extremity edema Pulmonary emphysema, unspecified emphysema type (CMS/HCC)- Primary Primary hypertension ([facility]/HCC) Unspecified essential hypertension Class 3 severe obesity [...] Obstructive chronic bronchitis with exacerbation Pulmonary hypertension ([facility]) Other chronic pulmonary heart diseases Class 3 severe obesity with serious comorbidity and body mass index (BMI) of 50.0 to 59.9 in adult, unspecified obesity type ([facility]) Encounter for subsequent annual wellness visit (AWV) in Medicare patient- Primary Type 2 diabetes mellitus with unspecified complications ([facility]) Pulmonary emphysema, unspecified emphysema type ([facility]) Moderate persistent asthma without complication (CMS/HCC) Primary hypertension ([facility]) Unspecified essential hypertension Type 2 diabetes mellitus with complication, with long-term current use of insulin ([facility]) Class 3 severe obesity with [...] spontaneous rupture of tympanic membrane Primary hypertension ([facility])- Primary Unspecified essential hypertension Insomnia Insomnia, unspecified Type 2 diabetes mellitus with complication, with long-term current use of insulin ([facility]) Non-seasonal allergic rhinitis, unspecified trigger Type 2 diabetes mellitus with unspecified complications ([facility]) Anxiety and depression ([facility]) Gastro-esophageal reflux disease without esophagitis Edema, unspecified Edema Diabetic polyneuropathy associated with type 2 diabetes mellitus ([facility]) Chronic obstructive pulmonary disease, unspecified ([facility]) Pulmonary emphysema, unspecified emphysema type ([facility]) Bilateral lower extremity edema Tobacco user Tobacco use disorder Hyperpigmentation of skin Other dyschromia Type 2 diabetes mellitus with hyperglycemia, with long-term current use of insulin ([facility])- Primary Encounter for dietary consultation Vitamin D deficiency Primary hypertension ([facility] Unspecified essential hypertension Insulin long-term use ([facility]) Encounter for long-term (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 Hyperlipemia, mixed ([facility]) Mixed hyperlipidemia Microalbuminuria Proteinuria Class 3 severe obesity due to excess calories with serious comorbidity and body mass index (BMI) of 50.0 to 59.9 in adult ([facility]) [facility] Diagnosis Hyperlipidemia, unspecified ([facility]) Bilateral lower extremity edema documented [facility]* Diagnosis Vitamin D deficiency, unspecified documented in [facility]* Diagnosis Obstructive sleep apnea- Primary Obstructive sleep apnea (adult) (pediatric) Pulmonary emphysema, unspecified emphysema type ([facility]) Primary hypertension ([facility]) Unspecified essential hypertension Type 2 diabetes mellitus with complication, with long-term current use of insulin ([facility]) Anxiety and depression ([facility]) Bilateral lower extremity edema Pulmonary emphysema, unspecified emphysema type ([facility])- Primary Primary hypertension ([facility]) Unspecified essential hypertension Class 3 severe obesity with serious comorbidity and body mass index (BMI) of 50.0 to 59.9 in adult, unspecified obesity type ([facility]) Obstructive sleep apnea Obstructive sleep apnea (adult) (pediatric) Pulmonary hypertension ([facility]) Other chronic pulmonary heart diseases Tobacco user Tobacco use disorder Cardiomegaly Primary hypertension ([facility])- Primary Unspecified essential hypertension Gastroesophageal reflux disease, [...] to 59.9 in adult, unspecified obesity type ([facility]) Encounter for subsequent annual wellness visit (AWV) in Medicare patient- Primary Type 2 diabetes mellitus with unspecified complications (CMS/HCC) Pulmonary emphysema, unspecified emphysema type (CMS/HCC) Moderate persistent asthma without complication (CMS/HCC) Primary hypertension ([facility]) Unspecified essential hypertension Type 2 diabetes mellitus with complication, with long-term current use of insulin ([facility]) Class 3 severe obesity with [...] complication, with long-term current use of insulin ([facility]) Non-seasonal allergic rhinitis, unspecified trigger Type 2 diabetes mellitus with unspecified complications ([facility]) Anxiety and depression ([facility]) Gastro-esophageal reflux disease without esophagitis Edema, unspecified Edema Diabetic polyneuropathy associated with type 2 diabetes mellitus ([facility]) Chronic obstructive pulmonary disease, unspecified ([facility]) Pulmonary emphysema, unspecified emphysema type ([facility]) Bilateral lower extremity edema Tobacco user Tobacco use disorder Hyperpigmentation of skin Other dyschromia Bilateral lower extremity edema documented in this encounter [facility]* Diagnosis Obstructive sleep apnea- Primary Obstructive sleep apnea (adult) (pediatric) Pulmonary emphysema, unspecified emphysema type ([facility]) Primary hypertension ([facility]) Unspecified essential hypertension Type 2 diabetes mellitus with complication, with long-term current use of insulin ([facility]) Anxiety and depression ([facility]) Bilateral lower extremity edema Pulmonary emphysema, unspecified emphysema type ([facility])- Primary Primary hypertension ([facility]) Unspecified essential hypertension Class 3 severe obesity with serious comorbidity and body mass index (BMI) of 50.0 to 59.9 in adult, unspecified obesity type ([facility]) Obstructive sleep apnea Obstructive sleep apnea (adult) (pediatric) Pulmonary hypertension ([facility]) Other chronic pulmonary heart diseases Tobacco user Tobacco use disorder Cardiomegaly Primary hypertension ([facility])- Primary Unspecified essential hypertension Gastroesophageal reflux disease, unspecified whether esophagitis present Type 2 diabetes mellitus with complication, with long-term current use of insulin ([facility]) Mixed hyperlipidemia ([facility]) Mixed hyperlipidemia Tobacco user Tobacco use disorder Encounter for screening mammogram for malignant neoplasm of breast Chronic obstructive pulmonary disease, unspecified ([facility]) Other specified chronic obstructive pulmonary disease ([facility]) Anxiety and depression ([facility]) Edema, unspecified Edema Hyperlipidemia, unspecified ([facility]) Diabetic polyneuropathy associated with type 2 diabetes mellitus ([facility]) Gout, unspecified cause, unspecified chronicity, unspecified site Non-seasonal allergic rhinitis, unspecified trigger Bilateral lower extremity edema COPD exacerbation ([facility]) Obstructive chronic bronchitis with exacerbation Pulmonary emphysema, unspecified emphysema type ([facility]) Venous insufficiency Unspecified venous (peripheral) insufficiency Candidiasis [...] Critical limb ischemia of right lower extremity ([facility]) PAD (peripheral artery disease) ([facility]) Unspecified peripheral vascular disease Gastroesophageal reflux disease, unspecified whether esophagitis present Bilateral lower extremity edema Venous ulcer of right leg ([facility]) Type 2 diabetes mellitus with complication, with long-term current use of insulin ([facility]) Tobacco user Tobacco use disorder Encounter for smoking cessation counseling Kidney stone Calculus of kidney Adrenal mass 1 cm to 4 cm in diameter ([facility]) Radiculopathy, lumbar region Thoracic or lumbosacral neuritis or radiculitis, unspecified Non-seasonal allergic rhinitis, unspecified trigger Type 2 diabetes mellitus with unspecified complications ([facility]) documented in this encounter [facility]* Diagnosis Obstructive sleep apnea- Primary Obstructive sleep apnea (adult) (pediatric) Pulmonary emphysema, unspecified emphysema type ([facility]) Primary hypertension ([facility]) Unspecified essential hypertension Type 2 diabetes mellitus with complication, with long-term current use of insulin ([facility]) Anxiety and depression ([facility]) Bilateral lower extremity edema Pulmonary emphysema, unspecified emphysema type ([facility])- Primary Primary hypertension ([facility]) Unspecified essential hypertension Class 3 severe obesity with serious comorbidity and body mass index (BMI) of 50.0 to 59.9 in adult, unspecified obesity type ([facility]) Obstructive sleep apnea Obstructive sleep apnea (adult) (pediatric) Pulmonary hypertension ([facility]) Other chronic pulmonary heart diseases Tobacco user Tobacco use disorder Cardiomegaly Primary hypertension ([facility])- Primary Unspecified essential hypertension Gastroesophageal reflux disease, unspecified whether esophagitis present Type 2 diabetes mellitus with complication, with long-term current use of insulin ([facility]) Mixed hyperlipidemia ([facility]) Mixed hyperlipidemia Tobacco user Tobacco use disorder Encounter for screening mammogram for malignant neoplasm of breast Chronic obstructive pulmonary disease, unspecified ([facility]) Other specified chronic obstructive pulmonary disease ([facility]) Anxiety and depression ([facility]) Edema, unspecified Edema Hyperlipidemia, unspecified ([facility]) Diabetic polyneuropathy associated with type 2 diabetes mellitus ([facility]) Gout, unspecified cause, unspecified chronicity, unspecified site Non-seasonal allergic rhinitis, unspecified trigger Bilateral lower extremity edema COPD exacerbation ([facility]) Obstructive chronic bronchitis with exacerbation [...] mellitus (CMS/HCC) Pulmonary emphysema, unspecified emphysema type ([facility]) Critical limb ischemia of right lower extremity ([facility]) PAD (peripheral artery disease) ([facility]) Unspecified peripheral vascular disease Gastroesophageal reflux disease, unspecified whether esophagitis present Bilateral lower extremity edema Venous ulcer of right leg ([facility]) Type 2 diabetes mellitus with complication, with long-term current use of insulin ([facility]) Tobacco user Tobacco use disorder Encounter for smoking cessation counseling Kidney stone Calculus of kidney Adrenal mass 1 cm to 4 cm in diameter ([facility]) Radiculopathy, lumbar region Thoracic or lumbosacral neuritis or radiculitis, unspecified Non-seasonal allergic rhinitis, unspecified trigger Type 2 diabetes mellitus with unspecified complications ([facility]) Anxiety and depression ([facility])- Primary Morbid (severe) obesity due to excess calories ([facility]) Body mass index (BMI) 50.0-59.9, adult ([facility]) Malignant neoplasm of cervix uteri, unspecified ([facility]) Diabetic polyneuropathy associated with type 2 diabetes mellitus ([facility] Chronic diastolic heart failure ([facility] Chronic diastolic heart failure Primary hypertension ([facility]) Unspecified essential hypertension 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 ([facility]) Gastroesophageal reflux disease, unspecified whether esophagitis present Bilateral lower extremity edema Type 2 diabetes mellitus with complication, with long-term current use of insulin ([facility]) Tobacco user Tobacco use disorder Mixed hyperlipidemia ([facility]) Mixed hyperlipidemia Gout, unspecified cause, unspecified chronicity, unspecified site Vitamin deficiency Unspecified vitamin deficiency Gastro-esophageal reflux disease without esophagitis Edema, unspecified Edema Hyperlipidemia, unspecified ([facility]) Encounter for smoking cessation counseling Venous ulcer of right leg ([facility]) Antibiotic-induced yeast infection documented in this encounter [facility] HealthcareEvaluation note* Diagnosis Obstructive sleep apnea- Primary Obstructive sleep apnea (adult) (pediatric) Pulmonary emphysema, unspecified emphysema type ([facility]) Primary hypertension ([facility]) Unspecified essential hypertension Type 2 diabetes mellitus with complication, with long-term current use of insulin ([facility]) Anxiety and depression ([facility]) Bilateral lower extremity edema Pulmonary emphysema, unspecified emphysema type ([facility])- Primary Primary hypertension ([facility]) Unspecified essential hypertension Class 3 severe obesity with serious comorbidity and body mass index (BMI) of 50.0 to 59.9 in adult, unspecified obesity type Obstructive sleep apnea Obstructive sleep apnea (adult) (pediatric) Pulmonary hypertension ([facility]) Other chronic pulmonary heart diseases Tobacco user Tobacco use disorder Cardiomegaly Primary hypertension (CMS/HCC)- Primary Unspecified essential hypertension Gastroesophageal reflux disease, unspecified whether esophagitis present Type 2 diabetes mellitus with complication, with long-term current use of insulin ([facility]) Mixed hyperlipidemia ([facility]) Mixed hyperlipidemia Tobacco user Tobacco use disorder Encounter for screening mammogram for malignant neoplasm of breast Chronic obstructive pulmonary disease, unspecified Other specified chronic obstructive pulmonary disease Anxiety and depression ([facility]) Edema, unspecified Edema Hyperlipidemia, unspecified ([facility]) Diabetic polyneuropathy associated with type 2 diabetes mellitus ([facility]) Gout, unspecified cause, unspecified chronicity, unspecified site Non-seasonal allergic rhinitis, unspecified trigger Bilateral lower extremity edema COPD exacerbation ([facility]) Obstructive chronic bronchitis with exacerbation Pulmonary emphysema, unspecified emphysema type ([facility]) Venous insufficiency Unspecified venous (peripheral) insufficiency Candidiasis of breast COPD exacerbation ([facility])- Primary Obstructive chronic bronchitis with exacerbation Pulmonary hypertension ([facility]) Other chronic pulmonary heart diseases Class 3 severe obesity with serious comorbidity and body mass index (BMI) of 50.0 to 59.9 in adult, unspecified obesity type Encounter for subsequent annual wellness visit (AWV) in Medicare patient- Primary Type 2 diabetes mellitus with unspecified complications Pulmonary emphysema, unspecified emphysema type ([facility]) Moderate persistent asthma without complication ([facility]) Primary hypertension ([facility]) Unspecified essential hypertension Type 2 diabetes mellitus with complication, with long-term current use of insulin ([facility]) Class 3 severe obesity with serious comorbidity and body mass index (BMI) of 50.0 to 59.9 in adult, unspecified obesity type Tobacco user Tobacco use disorder Other headache syndrome Malignant neoplasm of cervix uteri, unspecified Other specified disorders of adrenal gland Major depressive disorder, single episode, mild (HCC) ([facility]) Major depressive disorder, single episode, mild 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 exposed Chronic respiratory failure, unspecified whether with hypoxia or hypercapnia Disorder of adrenal gland, unspecified Non-pressure chronic ulcer of other part of right lower leg limited to breakdown of skin ([facility]) Non-recurrent acute suppurative otitis media of left ear without spontaneous rupture of tympanic membrane Primary hypertension ([facility])- Primary Unspecified essential hypertension Insomnia Insomnia, unspecified Type 2 diabetes mellitus with complication, with long-term current use of insulin ([facility]) Non-seasonal allergic rhinitis, unspecified trigger Type 2 diabetes mellitus with unspecified complications Anxiety and depression ([facility]) Gastro-esophageal reflux disease without esophagitis Edema, unspecified Edema Diabetic polyneuropathy associated with type 2 diabetes mellitus ([facility]) Chronic obstructive pulmonary disease, unspecified Pulmonary emphysema, unspecified emphysema type ([facility]) Bilateral lower extremity edema Tobacco user Tobacco use disorder Hyperpigmentation of skin Other dyschromia Primary hypertension ([facility])- Primary Unspecified essential hypertension Diabetic polyneuropathy associated with type 2 diabetes mellitus ([facility]) Pulmonary emphysema, unspecified emphysema type ([facility]) Critical limb ischemia of right lower extremity ([facility]) PAD (peripheral artery disease) ([facility]) Unspecified peripheral vascular disease Gastroesophageal reflux disease, unspecified whether esophagitis present Bilateral lower extremity edema Venous ulcer of right leg ([facility]) Type 2 diabetes mellitus with complication, with long-term current use of insulin ([facility]) Tobacco user Tobacco use disorder Encounter for smoking cessation counseling Kidney stone Calculus of kidney Adrenal mass 1 cm to 4 cm in diameter ([facility]) Radiculopathy, lumbar region Thoracic or lumbosacral neuritis or radiculitis, unspecified Non-seasonal allergic rhinitis, unspecified trigger Type 2 diabetes mellitus with unspecified complications Anxiety and depression ([facility])- Primary Morbid (severe) obesity due to excess calories ([facility]) Body mass index (BMI) 50.0-59.9, adult ([facility]) Malignant neoplasm of cervix uteri, unspecified Diabetic polyneuropathy associated with type 2 diabetes mellitus ([facility]) Chronic diastolic heart failure ([facility]) Chronic diastolic heart failure Primary hypertension ([facility]) Unspecified essential hypertension 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 Gastroesophageal reflux disease, unspecified whether esophagitis present Bilateral lower extremity edema Type 2 diabetes mellitus with complication, with long-term current use of insulin ([facility]) Tobacco user Tobacco use disorder Mixed hyperlipidemia ([facility]) Mixed hyperlipidemia Gout, unspecified cause, unspecified chronicity, unspecified site Vitamin deficiency Unspecified vitamin deficiency Gastro-esophageal reflux disease without esophagitis Edema, unspecified Edema Hyperlipidemia, unspecified ([facility]) Encounter for smoking cessation counseling Venous ulcer of right leg ([facility]) Antibiotic-induced yeast infection Type 2 diabetes mellitus with hyperglycemia, with long-term current use of insulin ([facility])- Primary Encounter for dietary consultation Vitamin D deficiency Primary hypertension ([facility]) Unspecified essential hypertension Insulin long-term use ([facility]) Encounter for long-term (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 Hyperlipemia, mixed ([facility]) Mixed hyperlipidemia Microalbuminuria Proteinuria Class 3 severe obesity due to excess calories with serious comorbidity and body mass index (BMI) of 50.0 to 59.9 in adult documented in this encounter [facility] HealthcareEvaluation note* Diagnosis Obstructive sleep apnea- Primary Obstructive sleep apnea (adult) (pediatric) Pulmonary emphysema, unspecified emphysema type ([facility]) Primary hypertension ([facility]) Unspecified essential hypertension Type 2 diabetes mellitus with complication, with long-term current use of insulin ([facility]) Anxiety and depression ([facility]) Bilateral lower extremity edema Pulmonary emphysema, unspecified emphysema type ([facility])- Primary Primary hypertension ([facility]) Unspecified essential hypertension Class 3 severe obesity with serious comorbidity and body mass index (BMI) of 50.0 to 59.9 in adult, unspecified obesity type Obstructive sleep apnea Obstructive sleep apnea (adult) (pediatric) Pulmonary hypertension ([facility]) Other chronic pulmonary heart diseases Tobacco user Tobacco use disorder Cardiomegaly Primary hypertension ([facility])- Primary Unspecified essential hypertension Gastroesophageal reflux disease, unspecified whether esophagitis present Type 2 diabetes mellitus with complication, with long-term current use of insulin ([facility]) Mixed hyperlipidemia ([facility]) Mixed hyperlipidemia Tobacco user Tobacco use disorder Encounter for screening mammogram for malignant neoplasm of breast Chronic obstructive pulmonary disease, unspecified Other specified chronic obstructive pulmonary disease Anxiety and depression ([facility]) Edema, unspecified Edema Hyperlipidemia, unspecified ([facility]) Diabetic polyneuropathy associated with type 2 diabetes mellitus ([facility]) Gout, unspecified cause, unspecified chronicity, unspecified site Non-seasonal allergic rhinitis, unspecified trigger Bilateral lower extremity edema COPD exacerbation ([facility]) Obstructive chronic bronchitis with exacerbation Pulmonary emphysema, unspecified emphysema type ([facility]) Venous insufficiency Unspecified venous (peripheral) insufficiency Candidiasis of breast COPD exacerbation (CMS/HCC)- Primary Obstructive chronic bronchitis with exacerbation Pulmonary hypertension ([facility]) Other chronic pulmonary heart diseases Class 3 severe obesity with serious comorbidity and body mass index (BMI) of 50.0 to 59.9 in adult, unspecified obesity type Encounter for subsequent annual wellness visit (AWV) in Medicare patient- Primary Type 2 diabetes mellitus with unspecified complications Pulmonary emphysema, unspecified emphysema type ([facility]) Moderate persistent asthma without complication ([facility]) Primary hypertension ([facility]) Unspecified essential hypertension Type 2 diabetes mellitus with complication, with long-term current use of insulin ([facility]) Class 3 severe obesity with serious comorbidity and body mass index (BMI) of 50.0 to 59.9 in adult, unspecified obesity type Tobacco user Tobacco use disorder Other headache syndrome Malignant neoplasm of cervix uteri, unspecified Other specified disorders of adrenal gland Major depressive disorder, single episode, mild (HCC) ([facility]) Major depressive disorder, single episode, mild 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 exposed Chronic respiratory failure, unspecified whether with hypoxia or hypercapnia Disorder of adrenal gland, unspecified Non-pressure chronic ulcer of other part of right lower leg limited to breakdown of skin ([facility]) Non-recurrent acute suppurative otitis media of left ear without spontaneous rupture of tympanic membrane Primary hypertension ([facility])- Primary Unspecified essential hypertension Insomnia Insomnia, unspecified Type 2 diabetes mellitus with complication, with long-term current use of insulin ([facility]) Non-seasonal allergic rhinitis, unspecified trigger Type 2 diabetes mellitus with unspecified complications Anxiety and depression ([facility]) Gastro-esophageal reflux disease without esophagitis Edema, unspecified Edema Diabetic polyneuropathy associated with type 2 diabetes mellitus ([facility]) Chronic obstructive pulmonary disease, unspecified Pulmonary emphysema, unspecified emphysema type (CMS/HCC) Bilateral lower extremity edema Tobacco user Tobacco use disorder Hyperpigmentation of skin Other dyschromia Primary hypertension ([facility]/HCC)- Primary Unspecified essential hypertension Diabetic polyneuropathy associated with type 2 diabetes mellitus (CMS/HCC) Pulmonary emphysema, unspecified emphysema type ([facility]/HCC) Critical limb ischemia of right lower extremity ([facility]) PAD (peripheral artery disease) ([facility]) Unspecified peripheral vascular disease Gastroesophageal reflux disease, unspecified whether esophagitis present Bilateral lower extremity edema Venous ulcer of right leg ([facility]) Type 2 diabetes mellitus with complication, with long-term current use of insulin ([facility]) Tobacco user Tobacco use disorder Encounter for smoking cessation counseling Kidney stone Calculus of kidney Adrenal mass 1 cm to 4 cm in diameter ([facility]) Radiculopathy, lumbar region Thoracic or lumbosacral neuritis or radiculitis, unspecified Non-seasonal allergic rhinitis, unspecified trigger Type 2 diabetes mellitus with unspecified complications Anxiety and depression ([facility])- Primary Morbid (severe) obesity due to excess calories ([facility]) Body mass index (BMI) 50.0-59.9, adult ([facility]) Malignant neoplasm of cervix uteri, unspecified Diabetic polyneuropathy associated with type 2 diabetes mellitus ([facility]) Chronic diastolic heart failure ([facility]) Chronic diastolic heart failure Primary hypertension ([facility]) Unspecified essential hypertension 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 Gastroesophageal reflux disease, unspecified whether esophagitis present Bilateral lower extremity edema Type 2 diabetes mellitus with complication, with long-term current use of insulin ([facility]) Tobacco user Tobacco use disorder Mixed hyperlipidemia ([facility]) Mixed hyperlipidemia Gout, unspecified cause, unspecified chronicity, unspecified site Vitamin deficiency Unspecified vitamin deficiency Gastro-esophageal reflux disease without esophagitis Edema, unspecified Edema Hyperlipidemia, unspecified ([facility]) Encounter for smoking cessation counseling Venous ulcer of right leg ([facility]) Antibiotic-induced yeast infection Chronic obstructive pulmonary disease, unspecified documented in this encounter [facility] HealthcareEvaluation note* Diagnosis Obstructive sleep apnea- Primary Obstructive sleep apnea (adult) (pediatric) Pulmonary emphysema, unspecified emphysema type ([facility]) Primary hypertension ([facility]) Unspecified essential hypertension Type 2 diabetes mellitus with complication, with long-term current use of insulin ([facility]) Anxiety and depression ([facility]) Bilateral lower extremity edema Pulmonary emphysema, unspecified emphysema type ([facility])- Primary Primary hypertension ([facility]) Unspecified essential hypertension Class 3 severe obesity with serious comorbidity and body mass index (BMI) of 50.0 to 59.9 in adult, unspecified obesity type Obstructive sleep apnea Obstructive sleep apnea (adult) (pediatric) Pulmonary hypertension ([facility]) Other chronic pulmonary heart diseases Tobacco user Tobacco use disorder Cardiomegaly Primary hypertension ([facility])- Primary Unspecified essential hypertension Gastroesophageal reflux disease, unspecified whether esophagitis present Type 2 diabetes mellitus with complication, with long-term current use of insulin ([facility]) Mixed hyperlipidemia ([facility]) Mixed hyperlipidemia Tobacco user Tobacco use disorder Encounter for screening mammogram for malignant neoplasm of breast Chronic obstructive pulmonary disease, unspecified Other specified chronic obstructive pulmonary disease Anxiety and depression ([facility]) Edema, unspecified Edema Hyperlipidemia, unspecified ([facility]) Diabetic polyneuropathy associated with type 2 diabetes mellitus ([facility]) Gout, unspecified cause, unspecified chronicity, unspecified site Non-seasonal allergic rhinitis, unspecified trigger Bilateral lower extremity edema COPD exacerbation ([facility]) Obstructive chronic bronchitis with exacerbation Pulmonary emphysema, unspecified emphysema type ([facility]) Venous insufficiency Unspecified venous (peripheral) insufficiency Candidiasis of breast COPD exacerbation ([facility])- Primary Obstructive chronic bronchitis with exacerbation Pulmonary hypertension ([facility]) Other chronic pulmonary heart diseases Class 3 severe obesity with serious comorbidity and body mass index (BMI) of 50.0 to 59.9 in adult, unspecified obesity type Encounter for subsequent annual wellness visit (AWV) in Medicare patient- Primary Type 2 diabetes mellitus with unspecified complications Pulmonary emphysema, unspecified emphysema type ([facility]) Moderate persistent asthma without complication ([facility]) Primary hypertension ([facility]) Unspecified essential hypertension Type 2 diabetes mellitus with complication, with long-term current use of insulin ([facility]) Class 3 severe obesity with serious comorbidity and body mass index (BMI) of 50.0 to 59.9 in adult, unspecified obesity type Tobacco user Tobacco use disorder Other headache syndrome Malignant neoplasm of cervix uteri, unspecified Other specified disorders of adrenal gland Major depressive disorder, single episode, mild (HCC) ([facility]) Major depressive disorder, single episode, mild 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 exposed Chronic respiratory failure, unspecified whether with hypoxia or hypercapnia Disorder of adrenal gland, unspecified Non-pressure chronic ulcer of other part of right lower leg limited to breakdown of skin ([facility]) Non-recurrent acute suppurative otitis media of left ear without spontaneous rupture of tympanic membrane Primary hypertension ([facility])- Primary Unspecified essential hypertension Insomnia Insomnia, unspecified Type 2 diabetes mellitus with complication, with long-term current use of insulin ([facility]) Non-seasonal allergic rhinitis, unspecified trigger Type 2 diabetes mellitus with unspecified complications Anxiety and depression ([facility]) Gastro-esophageal reflux disease without esophagitis Edema, unspecified Edema Diabetic polyneuropathy associated with type 2 diabetes mellitus ([facility]) Chronic obstructive pulmonary disease, unspecified Pulmonary emphysema, unspecified emphysema type ([facility]) Bilateral lower extremity edema Tobacco user Tobacco use disorder Hyperpigmentation of skin Other dyschromia Primary hypertension ([facility])- Primary Unspecified essential hypertension Diabetic polyneuropathy associated with type 2 diabetes mellitus ([facility]) Pulmonary emphysema, unspecified emphysema type ([facility]) Critical limb ischemia of right lower extremity ([facility]) PAD (peripheral artery disease) ([facility]) Unspecified peripheral vascular disease Gastroesophageal reflux disease, unspecified whether esophagitis present Bilateral lower extremity edema Venous ulcer of right leg ([facility]) Type 2 diabetes mellitus with complication, with long-term current use of insulin ([facility]) Tobacco user Tobacco use disorder Encounter for smoking cessation counseling Kidney stone Calculus of kidney Adrenal mass 1 cm to 4 cm in diameter ([facility]) Radiculopathy, lumbar region Thoracic or lumbosacral neuritis or radiculitis, unspecified Non-seasonal allergic rhinitis, unspecified trigger Type 2 diabetes mellitus with unspecified complications Anxiety and depression ([facility])- Primary Morbid (severe) obesity due to excess calories ([facility]) Body mass index (BMI) 50.0-59.9, adult ([facility]) Malignant neoplasm of cervix uteri, unspecified Diabetic polyneuropathy associated with type 2 diabetes mellitus ([facility]) Chronic diastolic heart failure ([facility]) Chronic diastolic heart failure Primary hypertension ([facility]) Unspecified essential hypertension 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 Gastroesophageal reflux disease, unspecified whether esophagitis present Bilateral lower extremity edema Type 2 diabetes mellitus with complication, with long-term current use of insulin ([facility]) Tobacco user Tobacco use disorder Mixed hyperlipidemia ([facility]) Mixed hyperlipidemia Gout, unspecified cause, unspecified chronicity, unspecified site Vitamin deficiency Unspecified vitamin deficiency Gastro-esophageal reflux disease without esophagitis Edema, unspecified Edema Hyperlipidemia, unspecified ([facility]) Encounter for smoking cessation counseling Venous ulcer of right leg ([facility]) Antibiotic-induced yeast infection Primary hypertension ([facility])- Primary Unspecified essential hypertension Diabetic polyneuropathy associated with type 2 diabetes mellitus ([facility]) Chronic diastolic heart failure ([facility]) Chronic diastolic heart failure Bilateral lower extremity edema Morbid (severe) obesity due to excess calories ([facility]) Type 2 diabetes mellitus with complication, with long-term current use of insulin ([facility]) Anxiety and depression ([facility]) Cigarette nicotine dependence without complication Encounter for screening mammogram for malignant neoplasm of breast Insomnia Insomnia, unspecified Non-seasonal allergic rhinitis, unspecified trigger Type 2 diabetes mellitus with unspecified complications Vitamin D deficiency, unspecified Gastro-esophageal reflux disease without esophagitis PAD (peripheral artery disease) ([facility]) Unspecified peripheral vascular disease Gastroesophageal reflux disease, unspecified whether esophagitis present Venous ulcer of right leg ([facility]) documented in this encounter [facility] HealthcareEvaluation note* Diagnosis Obstructive sleep apnea- Primary Obstructive sleep apnea (adult) (pediatric) Pulmonary emphysema, unspecified emphysema type ([facility]) Primary hypertension Unspecified essential hypertension Type 2 diabetes mellitus with complication, with long-term current use of insulin ([facility]) Anxiety and depression Bilateral lower extremity edema Pulmonary emphysema, unspecified emphysema type (HCC)- Primary Primary hypertension Unspecified essential hypertension Class 3 severe obesity with serious comorbidity and body mass index (BMI) of 50.0 to 59.9 in adult, unspecified obesity type ([facility]) Obstructive sleep apnea Obstructive sleep apnea (adult) (pediatric) Pulmonary hypertension (HCC) Other chronic pulmonary heart diseases Tobacco user Tobacco use disorder Cardiomegaly Primary hypertension- Primary Unspecified essential hypertension Gastroesophageal reflux disease, unspecified whether esophagitis present Type 2 diabetes mellitus with complication, with long-term current use of insulin (HCC) Mixed hyperlipidemia Mixed hyperlipidemia Tobacco user Tobacco use disorder Encounter for screening mammogram for malignant neoplasm of breast Chronic obstructive pulmonary disease, unspecified (HCC) Other specified chronic obstructive pulmonary disease (HCC) Anxiety and depression Edema, unspecified Edema Hyperlipidemia, unspecified Diabetic polyneuropathy associated with type 2 diabetes mellitus ([facility]) Gout, unspecified cause, unspecified chronicity, unspecified site Non-seasonal allergic rhinitis, unspecified trigger Bilateral lower extremity edema COPD exacerbation ([facility]) Obstructive chronic bronchitis with exacerbation Pulmonary emphysema, unspecified emphysema type (HCC) Venous insufficiency Unspecified venous (peripheral) insufficiency Candidiasis of breast COPD exacerbation ([facility])- Primary Obstructive chronic bronchitis with exacerbation Pulmonary hypertension (HCC) Other chronic pulmonary heart diseases Class 3 severe obesity with serious comorbidity and body mass index (BMI) of 50.0 to 59.9 in adult, unspecified obesity type ([facility]) Encounter for subsequent annual wellness visit (AWV) in Medicare patient- Primary Type 2 diabetes mellitus with unspecified complications (HCC) Pulmonary emphysema, unspecified emphysema type ([facility]) Moderate persistent asthma without complication (HCC) Primary hypertension Unspecified essential hypertension Type 2 diabetes mellitus with complication, with long-term current use of insulin ([facility]) Class 3 severe obesity with serious comorbidity and body mass index (BMI) of 50.0 to 59.9 in adult, unspecified obesity type ([facility]) Tobacco user Tobacco use disorder Other headache syndrome Malignant neoplasm of cervix uteri, unspecified (HCC) Other specified disorders of adrenal gland ([facility]) Major depressive disorder, single episode, mild Major depressive disorder, single episode, mild 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 exposed ([facility]) Chronic respiratory failure, unspecified whether with hypoxia or hypercapnia ([facility]) Disorder of adrenal gland, unspecified ([facility]) Non-pressure chronic ulcer of other part of right lower leg limited to breakdown of skin ([facility]) Non-recurrent acute suppurative otitis media of left ear without spontaneous rupture of tympanic membrane Primary hypertension- Primary Unspecified essential hypertension Insomnia Insomnia, unspecified Type 2 diabetes mellitus with complication, with long-term current use of insulin ([facility]) Non-seasonal allergic rhinitis, unspecified trigger Type 2 diabetes mellitus with unspecified complications ([facility]) Anxiety and depression Gastro-esophageal reflux disease without esophagitis Edema, unspecified Edema Diabetic polyneuropathy associated with type 2 diabetes mellitus ([facility]) Chronic obstructive pulmonary disease, unspecified (HCC) Pulmonary emphysema, unspecified emphysema type ([facility]) Bilateral lower extremity edema Tobacco user Tobacco use disorder Hyperpigmentation of skin Other dyschromia Primary hypertension- Primary Unspecified essential hypertension Diabetic polyneuropathy associated with type 2 diabetes mellitus ([facility]) Pulmonary emphysema, unspecified emphysema type (HCC) Critical limb ischemia of right lower extremity ([facility]) PAD (peripheral artery disease) Unspecified peripheral vascular disease Gastroesophageal reflux disease, unspecified whether esophagitis present Bilateral lower extremity edema Venous ulcer of right leg ([facility]) Type 2 diabetes mellitus with complication, with long-term current use of insulin (HCC) Tobacco user Tobacco use disorder Encounter for smoking cessation counseling Kidney stone Calculus of kidney Adrenal mass 1 cm to 4 cm in diameter ([facility]) Radiculopathy, lumbar region Thoracic or lumbosacral neuritis or radiculitis, unspecified Non-seasonal allergic rhinitis, unspecified trigger Type 2 diabetes mellitus with unspecified complications (HCC) Anxiety and depression- Primary Morbid (severe) obesity due to excess calories ([facility]) Body mass index (BMI) 50.0-59.9, adult ([facility]) Malignant neoplasm of cervix uteri, unspecified (HCC) Diabetic polyneuropathy associated with type 2 diabetes mellitus (HCC) Chronic diastolic heart failure (HCC) Chronic diastolic heart failure Primary hypertension Unspecified essential hypertension 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 (HCC) Gastroesophageal reflux disease, unspecified whether esophagitis present Bilateral lower extremity edema Type 2 diabetes mellitus with complication, with long-term current use of insulin (HCC) Tobacco user Tobacco use disorder Mixed hyperlipidemia Mixed hyperlipidemia Gout, unspecified cause, unspecified chronicity, unspecified site Vitamin deficiency Unspecified vitamin deficiency Gastro-esophageal reflux disease without esophagitis Edema, unspecified Edema Hyperlipidemia, unspecified Encounter for smoking cessation counseling Venous ulcer of right leg (HCC) Antibiotic-induced yeast infection Primary hypertension- Primary Unspecified essential hypertension Diabetic polyneuropathy associated with type 2 diabetes mellitus (HCC) Chronic diastolic heart failure (HCC) Chronic diastolic heart failure Bilateral lower extremity edema Morbid (severe) obesity due to excess calories ([facility]) Type 2 diabetes mellitus with complication, with long-term current use of insulin (HCC) Anxiety and depression Cigarette nicotine dependence without complication Encounter for screening mammogram for malignant neoplasm of breast Insomnia Insomnia, unspecified Non-seasonal allergic rhinitis, unspecified trigger Type 2 diabetes mellitus with unspecified complications (HCC) Vitamin D deficiency, unspecified Gastro-esophageal reflux disease without esophagitis PAD (peripheral artery disease) Unspecified peripheral vascular disease Gastroesophageal reflux disease, unspecified whether esophagitis present Venous ulcer of right leg (HCC) Cellulitis of left lower extremity- Primary COPD exacerbation (HCC) Obstructive chronic bronchitis with exacerbation Primary hypertension Unspecified essential hypertension Pulmonary hypertension (HCC) Other chronic pulmonary heart diseases Morbid (severe) obesity due to excess calories ([facility]) Type 2 diabetes mellitus with complication, with long-term current use of insulin (HCC) Anxiety and depression Fever, unspecified fever cause Hyperlipidemia, unspecified Tobacco user Tobacco use disorder Encounter for smoking cessation counseling documented in this encounter [facility] Diagnosis Obstructive sleep apnea- Primary Obstructive sleep apnea (adult) (pediatric) Pulmonary emphysema, unspecified emphysema type ([facility]) Primary hypertension ([facility]) Unspecified essential hypertension Type 2 diabetes mellitus with complication, with long-term current use of insulin ([facility]) Anxiety and depression ([facility]) Bilateral lower extremity edema Pulmonary emphysema, unspecified emphysema type ([facility])- Primary Primary hypertension ([facility]) Unspecified essential hypertension Class 3 severe obesity with serious comorbidity and body mass index (BMI) of 50.0 to 59.9 in adult, unspecified obesity type Obstructive sleep apnea Obstructive sleep apnea (adult) (pediatric) Pulmonary hypertension ([facility]) Other chronic pulmonary heart diseases Tobacco user Tobacco use disorder Cardiomegaly Primary hypertension ([facility])- Primary Unspecified essential hypertension Gastroesophageal reflux disease, unspecified whether esophagitis present Type 2 diabetes mellitus with complication, with long-term current use of insulin ([facility]) Mixed hyperlipidemia ([facility]) Mixed hyperlipidemia Tobacco user Tobacco use disorder Encounter for screening mammogram for malignant neoplasm of breast Chronic obstructive pulmonary disease, unspecified Other specified chronic obstructive pulmonary disease Anxiety and depression ([facility]) Edema, unspecified Edema Hyperlipidemia, unspecified ([facility]) Diabetic polyneuropathy associated with type 2 diabetes mellitus ([facility]) Gout, unspecified cause, unspecified chronicity, unspecified site Non-seasonal allergic rhinitis, unspecified trigger Bilateral lower extremity edema COPD exacerbation ([facility]) Obstructive chronic bronchitis with exacerbation Pulmonary emphysema, unspecified emphysema type ([facility]) Venous insufficiency Unspecified venous (peripheral) insufficiency Candidiasis of breast COPD exacerbation ([facility])- Primary Obstructive chronic bronchitis with exacerbation Pulmonary hypertension ([facility]) Other chronic pulmonary heart diseases Class 3 severe obesity with serious comorbidity and body mass index (BMI) of 50.0 to 59.9 in adult, unspecified obesity type Encounter for subsequent annual wellness visit (AWV) in Medicare patient- Primary Type 2 diabetes mellitus with unspecified complications Pulmonary emphysema, unspecified emphysema type ([facility]) Moderate persistent asthma without complication ([facility]) Primary hypertension ([facility]) Unspecified essential hypertension Type 2 diabetes mellitus with complication, with long-term current use of insulin ([facility]) Class 3 severe obesity with serious comorbidity and body mass index (BMI) of 50.0 to 59.9 in adult, unspecified obesity type Tobacco user Tobacco use disorder Other headache syndrome Malignant neoplasm of cervix uteri, unspecified Other specified disorders of adrenal gland Major depressive disorder, single episode, mild (HCC) ([facility]) Major depressive disorder, single episode, mild 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 exposed Chronic respiratory failure, unspecified whether with hypoxia or hypercapnia Disorder of adrenal gland, unspecified Non-pressure chronic ulcer of other part of right lower leg limited to breakdown of skin ([facility]) Non-recurrent acute suppurative otitis media of left ear without spontaneous rupture of tympanic membrane Primary hypertension ([facility])- Primary Unspecified essential hypertension Insomnia Insomnia, unspecified Type 2 diabetes mellitus with complication, with long-term current use of insulin ([facility]) Non-seasonal allergic rhinitis, unspecified trigger Type 2 diabetes mellitus with unspecified complications Anxiety and depression ([facility]) Gastro-esophageal reflux disease without esophagitis Edema, unspecified Edema Diabetic polyneuropathy associated with type 2 diabetes mellitus ([facility]) Chronic obstructive pulmonary disease, unspecified Pulmonary emphysema, unspecified emphysema type ([facility]) Bilateral lower extremity edema Tobacco user Tobacco use disorder Hyperpigmentation of skin Other dyschromia Primary hypertension ([facility])- Primary Unspecified essential hypertension Diabetic polyneuropathy associated with type 2 diabetes mellitus ([facility]) Pulmonary emphysema, unspecified emphysema type ([facility]) Critical limb ischemia of right lower extremity ([facility]) PAD (peripheral artery disease) ([facility]) Unspecified peripheral vascular disease Gastroesophageal reflux disease, unspecified whether esophagitis present Bilateral lower extremity edema Venous ulcer of right leg ([facility]) Type 2 diabetes mellitus with complication, with long-term current use of insulin ([facility]) Tobacco user Tobacco use disorder Encounter for smoking cessation counseling Kidney stone Calculus of kidney Adrenal mass 1 cm to 4 cm in diameter ([facility]) Radiculopathy, lumbar region Thoracic or lumbosacral neuritis or radiculitis, unspecified Non-seasonal allergic rhinitis, unspecified trigger Type 2 diabetes mellitus with unspecified complications Anxiety and depression ([facility])- Primary Morbid (severe) obesity due to excess calories ([facility]) Body mass index (BMI) 50.0-59.9, adult ([facility]) Malignant neoplasm of cervix uteri, unspecified Diabetic polyneuropathy associated with type 2 diabetes mellitus ([facility]) Chronic diastolic heart failure ([facility]) Chronic diastolic heart failure Primary hypertension ([facility]) Unspecified essential hypertension 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 Gastroesophageal reflux disease, unspecified whether esophagitis present Bilateral lower extremity edema Type 2 diabetes mellitus with complication, with long-term current use of insulin ([facility]) Tobacco user Tobacco use disorder Mixed hyperlipidemia ([facility]) Mixed hyperlipidemia Gout, unspecified cause, unspecified chronicity, unspecified site Vitamin deficiency Unspecified vitamin deficiency Gastro-esophageal reflux disease without esophagitis Edema, unspecified Edema Hyperlipidemia, unspecified ([facility]) Encounter for smoking cessation counseling Venous ulcer of right leg ([facility]) Antibiotic-induced yeast infection Primary hypertension ([facility])- Primary Unspecified essential hypertension Diabetic polyneuropathy associated with type 2 diabetes mellitus ([facility] Chronic diastolic heart failure ([facility]) Chronic diastolic heart failure Bilateral lower extremity edema Morbid (severe) obesity due to excess calories ([facility]) Type 2 diabetes mellitus with complication, with long-term current use of insulin ([facility]) Anxiety and depression ([facility]) Cigarette nicotine dependence without complication Encounter for screening mammogram for malignant neoplasm of breast Insomnia Insomnia, unspecified Non-seasonal allergic rhinitis, unspecified trigger Type 2 diabetes mellitus with unspecified complications Vitamin D deficiency, unspecified Gastro-esophageal reflux disease without esophagitis PAD (peripheral artery disease) ([facility]) Unspecified peripheral vascular disease Gastroesophageal reflux disease, unspecified whether esophagitis present Venous ulcer of right leg ([facility]) Cellulitis of left lower extremity- Primary COPD exacerbation ([facility]) Obstructive chronic bronchitis with exacerbation Primary hypertension ([facility]) Unspecified essential hypertension Pulmonary hypertension ([facility]) Other chronic pulmonary heart diseases Morbid (severe) obesity due to excess calories ([facility]) Type 2 diabetes mellitus with complication, with long-term current use of insulin ([facility]) Anxiety and depression ([facility]) Fever, unspecified fever cause documented in this encounter [facility] [...] History sepsis 2010 Hospitalization History SEE [facility] Other Hospital course Narrative No data available for this section [facility] progress note No data available for this section [facility] reason for referral (narrative) , Referral to Dr. Cortés Referred by: Elbert ARAUZ MD [facility] Advance Directives Documents on File Type Date Recorded Patient Separations Scientist Expl anation Advance Directives and Living Will Power of Medical Assistant Dermatology Summary Purpose Family History No Family History Records FoundNo Family History Records FoundNo Family History Records FoundNo Family History Records Found No data available for this section No Family History Records FoundNo Family History Records Found Additional Source Comments INFORMATION SOURCE (unrecogn ized section and content) DATE CREATED AUTHOR 10/30/2019 [facility] DATE CREATED AUTHOR AUTHOR'S ORGANIZ ATION 09/15/2020 [facility] DATE CREATED AUTHOR AUTHOR'S ORGANIZ ATION 12/19/2022 [facility] DATE CREATED AUTHOR AUTHOR'S ORGANIZ ATION 06/03/2024 [facility] DATE CREATED AUTHOR AUTHOR'S ORGANIZ ATION 10/23/2024 [facility] DATE CREATED AUTHOR AUTHOR'S ORGANIZ ATION 12/10/2024 [facility] dical Specialists EPIC Care Team (unrecognized sect ion and content) Apron Operator Relationship Specialty Start Date End Date Ty Amin MD PCP - General Family Medicine 01/05/23 Apron Operator Relationship Specialty Start Date End Date Ty Amin MD PCP - General Family Medicine 01/05/23 Apron Operator Relationship Specialty Start Date End Date Ty Amin MD [address] [place] [address] PCP - General Family Medicine 09/20/23 Mckayla Blas NP [address] [place] [phone] PCP - [facility] 09/07/23 09/05/90 Mckayla Blas NP [address] [place] [phone] Nurse Practitioner Family Medicine 09/20/23 Apron Operator Relationship Specialty Start Date End Date Ty Amin MD [address] [place] [phone] PCP - General Family [facility] 09/20/23 Mckayla Blas NP [address] [place] [phone] [facility] 09/07/23 09/05/90 Mckayla Blas NP [address] [place] [phone] Nurse Practitioner Family Medicine 09/20/23 Apron Operator Relationship Specialty Start Date End Date Ty Amin MD [address] [place] [phone] PCP - General Family Medicine 09/20/23 Mckayla Blas NP [address] [place] [phone] PCP [facility] 09/07/23 09/05/90 Mckayla Blas NP [address] [place] [phone] Nurse Practitioner Family Medicine 09/20/23 Apron Operator Relationship Specialty Start Date End Date Ty Amin MD [address] [place] [phone] PCP - General Family Medicine 09/20/23 Mckayla Blas NP [address] [place] [address] PCP - [facility] 09/07/23 09/05/90 Mckayla Blas NP [address] [place] [phone] Nurse Practitioner Family Medicine 09/20/23 Apron Operator Relationship Specialty Start Date End Date Ty Amin MD [address] [place] [phone] PCP - General Family Medicine 09/20/23 Mckayla Blas NP [address] [place] [address] PCP - [facility] 09/07/23 09/05/90 Mckayla Blas NP [address] [place] [address] Nurse Practitioner Family Medicine 09/20/23 Apron Operator Relationship Specialty Start Date End Date Ty Amin MD [address] [place] [phone] PCP - General Family Medicine 09/20/23 Mckayla Blas NP [address] [place] [phone] PCP - [facility] 09/07/23 09/05/90 Mckayla Blas NP [address] [place] [phone] Nurse Practitioner Family Medicine 09/20/23 Apron Operator Relationship Specialty Start Date End Date Ty Amin MD [address] [place] [phone] PCP - General Family [facility] 09/20/23 Mckayla Blas NP [address] [place] [phone] [facility] 09/07/23 09/05/90 Mckayla Blas NP [address] [place] [phone] Nurse Practitioner Family Medicine 09/20/23 Apron Operator Relationship Specialty Start Date End Date Ty Amin MD [address] [place] [phone] PCP - General Family Medicine 09/20/23 Mckayla Blas NP [address] [place] [address] PCP [facility] 09/07/23 09/05/90 Mckayla Blas NP [address] [place] [address] Nurse Practitioner Family Medicine 09/20/23 Apron Operator Relationship Specialty Start Date End Date Ty Amin MD [address] [place] [address] PCP - General Family Medicine 09/20/23 Mckayla Blas NP [address] [place] [address] PCP - [facility] 09/07/23 09/05/90 Mckayla Blas NP [address] [place] [address] Nurse Practitioner Family Medicine 09/20/23 Apron Operator Relationship Specialty Start Date End Date Ty Amin MD [address] [place] [address] PCP - General Family Medicine 09/20/23 Mckayla Blas NP [address] [place] [address] PCP - [facility] 09/07/23 09/05/90 Mckayla Blas NP [address] [place] [address] Nurse Practitioner Family Medicine 09/20/23 Apron Operator Relationship Specialty Start Date End Date Ty Amin MD [address] [place] [address] PCP - General Family Medicine 09/20/23 Mckayla Blas NP [address] [place] [address] PCP - [facility] 09/07/23 09/05/90 Mckayla Blas NP [address] [place] [address] Nurse Practitioner Family Medicine 09/20/23 Apron Operator Relationship Specialty Start Date End Date Ty Amin MD [address] [place] [address] PCP - General Family [facility] 09/20/23 Mckayla Blas NP [address] [place] [address] [facility] - [facility] 09/07/23 09/05/90 Mckayla Blas NP [address] [place] [address] Nurse Practitioner Family Medicine 09/20/23 Apron Operator Relationship Specialty Start Date End Date Ty Amin MD [address] [place] [address] PCP - General Family Medicine 09/20/23 Mckayla Blas NP [address] [place] [address] PCP [facility] 09/07/23 09/05/90 Mckayla Blas NP [address] [place] [address] Nurse Practitioner Family Medicine 09/20/23 Apron Operator Relationship Specialty Start Date End Date Ty Amin MD [address] [place] [address] PCP - General Family Medicine 09/20/23 Mckayla Blas NP [address] [place] [address] PCP - [facility] 09/07/23 09/05/90 Mckayla Blas NP [address] [place] [address] Nurse Practitioner Family Medicine 09/20/23 Apron Operator Relationship Specialty Start Date End Date Ty Amin MD [address] [place] [address] PCP - General Family Medicine 09/20/23 Mckayla Blas NP [address] [place] [address] PCP - [facility] 09/07/23 09/05/90 Mckayla Blas NP [address] [place] [address] Nurse Practitioner Family Medicine 09/20/23 Apron Operator Relationship Specialty Start Date End Date Ty Amin MD [address] [place] [address] PCP - General Family Medicine 09/20/23 Mckayla Blas NP [address] [place] [address] PCP - [facility] 09/07/23 09/05/90 Mckayla Blas NP [address] [place] [address] Nurse Practitioner Family Medicine 09/20/23 Apron Operator Relationship Specialty Start Date End Date Ty Amin MD [address] [place] [address] PCP - General Family [facility] 09/20/23 Mckayla Blas NP [address] [place] [address] [facility] 09/07/23 09/05/90 Mckayla Blas NP [address] [place] [address] Nurse Practitioner Family Medicine 09/20/23 Apron Operator Relationship Specialty Start Date End Date Ty Amin MD [address] [place] [address] PCP - General Family Medicine 09/20/23 Mckayla Blas NP [address] [place] [address] PCP [facility] 09/07/23 09/05/90 Mckayla Blas NP [address] [place] [address] Nurse Practitioner Family Medicine 09/20/23 Apron Operator Relationship Specialty Start Date End Date Ty Amni MD [address] [place] [address] PCP - General Family Medicine 09/20/23 Mckayla Blas NP [address] [place] [address] PCP - [facility] 09/07/23 09/05/90 Mckayla Blas NP [address] [place] [address] Nurse Practitioner Family Medicine 09/20/23 Apron Operator Relationship Specialty Start Date End Date Ty Amin MD [address] [place] [address] PCP - General Family Medicine 09/20/23 Mckayla Blas NP [address] [place] [address] [facility] 09/07/23 09/05/90 Mckayla Blas NP [address] [place] [address] Nurse Practitioner Family Medicine 09/20/23 REASON FOR VISIT (unrecogniz ed section and content) Reason Comments Med Refill Reason Comments Diabetes Follow-up Reason Comments Hospital Follow-up FOR RECORDS PERTAINING TO PATIENTS WHO [...] BE BASED ON THE PRIMARY CLINICAL RECORDS. [employer] [facility]. provides no warranty or guarantee of the accuracy or completeness of information in this document.
== END 2025-01-06 10:40 | disposition home or self-care (01) ==
PROVIDERS: PCP Nurse Practitioner; Visit Provider Physician Assistant
DX: I87.311 Chronic venous hypertension (idiopathic) with ulcer of right lower extremity (principal); L97.812 Non-pressure chronic ulcer of other part of right lower leg with fat layer exposed; I87.332 Chronic venous hypertension (idiopathic) with ulcer and inflammation of left lower extremity; L97.822 Non-pressure chronic ulcer of other part of left lower leg with fat layer exposed
CPT/HCPCS: 29580

== ENCOUNTER 2025-01-07 09:04 | Outpatient (OUT) | payer MEDICARE, SELFPAY ==
--- OUTSIDE RECORDS SUMMARY | 2024-12-02 05:30 | XMS_ITS ---
Author Organization The [facility] in [place] Address [address] [place] [address] Care Team Providers Care Php Lamp Developer Name Role Phone Mckalya Blas CNP Primary Care Provider Armando Limon Unavailable [phone] REASON FOR VISIT 1YEAR-COPD Encounters Encounter Location Date Provider Diagnosis Pulmonary Medicine [place] [address] [place] [address] 12/02/2024 Armando Yañez Plan Of Treatment No Information Progress Notes * Mitzi MACIAS LDOB:[birth year] (54 yo F)Acc No.[id number]:12/02/2024 UNLOCKED PROGRESS NOTE Follow Up Patient: Mitzi COX Provider: Tray Yañez DO :1970 A ge:54 Y S ex:Female Date:12/02/2024 Address:[address] [place], [place] [address] Pcp:Mckayla Blas CNP Subjective: * Chief Complaints: * 1 . 1YEAR-COPD. * Medical History: Objective: * Vitals: Assessment: Plan: * Treatment: * * Electronic signature of Radha Yañez DO on 01/07/2025 at 09:06 AM EDT Sign off status: Pending Visit Status: N /S N/C (No Show/No Charge) * Provider: Tray Yañez DO Date: 0 12/02/2024 Generated for Vanessa ocampo/Luis/eTransmitting on: 0 01/07/2025 09:06 AM EDT
--- OUTSIDE RECORDS SUMMARY | 2024-12-02 05:47 | XMS_ITS ---
Author Organization The [facility] in [place] Address [address] [place] [address] Care Team Providers Care Director Of Community Life Name Role Phone Mckayla Blas CNP Primary Care Provider Armando Limon [phone] REASON FOR VISIT No Show Appointment Encounters Encounter Location Date Provider Diagnosis Pulmonary Medicine [place] [address] [place] [address] 12/02/2024 Armando Yañez Plan Of Treatment No Information Progress Notes * MACIASMitzi CARPIO LDOB:[birth year] (54 yo F)Acc No.[id number]:12/02/2024 Patient: Mitzi COX :1970 A ge:54 Y S ex:Female Address:[address] [place] [phone] * true * Date: Generated for Vanessa ocampo/Luis/eTransmitting on: 0 01/07/2025 09:06 AM EDT
--- OUTSIDE RECORDS SUMMARY | 2025-01-06 11:20 | XMS_ITS | Encounter Summary ---
Author Organization [facility] Address [address] [place] [address] Care Team Providers Care Internet Systems Administrator Name Role Phone Mckayla Blas MD Primary Care Provider [phone] Reason for Referral * Imaging (Routine) - Pending Review Specialty Diagnoses / Procedures Referred By Tarun t Referred To Contact Cardiology Diagnoses Chronic diastolic heart failure (CMS/HCC) Procedures Transthoracic echo (TTE) complete Karma Chatterjee CNP [address] [place] [address] Phone: tel: fax: Referral ID Status Reason Start Date Expiration Date Visits Requested Visits Authorized [id number] Pending Review Perform Procedure 01/06/2025 01/06/2026 1 1 Reason for Visit * Reason Comments Congestive Heart Failure Hypertension Hyperlipidemia Encounter Details Date Type Department Care Team (Late st Contact Info) Description 01/06/2025 11:20 AM EDT Office Visit [facility] Heart at [facility] [address] [place] [address] Karma Chatterjee CNP [address] [place] [address] Chronic diastolic heart failure (CMS/HCC) (Primary Dx); Bilateral lower extremity edema; Primary hypertension; Mixed hyperlipidemia; Venous insufficiency; Class 3 severe obesity due to excess calories with serious comorbidity and body mass index (BMI) of 50.0 to 59.9 in adult; Type 2 diabetes mellitus with complication, with long-term current use of insulin ([facility]); Obstructive sleep apnea; LVH (left ventricular hypertrophy) [...] documented in this encounter Progress Notes * Megan Tijerina MA - 01/06/2025 11:20 AM EDT [...] original note were not included. Cardiovascular Medicine [facility] SUBJECTIVE Chief Complaint Patient presents with Congestive Heart Failure Hypertension Hyperlipidemia Mitzi Macias is a 54 y.o. female here for follow-up. PMHx: HFpEF, HTN, HLD, DM, longstanding heavy smoker, COPD, DANIEL, morbid obesity HPI 12/05/2024 Since last seen she was admitted to [facility] for AMS. 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 She will be seeing a new napkin machine operator and I advised she discuss mask options [...] up in about 6 months (around 07/09/2025). Karma Chatterjee CNP [facility] Cardiovascular Medicine documented in this encounter Plan [...] use of insulin (CMS/HCC) Obstructive sleep apnea Obstructive sleep apnea (adult) (pediatric) LVH (left ventricular hypertrophy) Cardiomegaly documented in this encounter Care Teams Internet Systems Administrator Relationship Specialty Start Date End Date Mckayla Blas MD [facility] [address] [place] [address] PCP - General Nurse Practitioner 11/13/23 documented as of this encounter
--- OUTSIDE RECORDS SUMMARY | 2025-01-07 09:06 | XMS_ITS | Encounter Summary ---
Author Organization [facility] Address [address] [place] [address] Care Team Providers Care Bioinformatics Specialist Name Role Phone Ty Amin MD Primary Care Provider [phone] Mckayla Blas NP Unavailable [phone] Mckayla Blas NP Unavailable [phone] Encounter Details Date Type Department Care [...] often do you attend chur ch or episcopalian services? 1 to 4 times per year [...] Recorded Patient Health Questionnaire-2 Score 1 01/17/2024 [facility] of Occupat ional Health - Occupational [...] place to sleep or slept in a mcfp (including now)? No 07/10/2023 Comments Unknown Sex [...] Office Visit [facility] [address] [place] [address] Mckayla Blas NP [address] [place] [address] 01/28/2025 10:50 AM EDT Office Visit [facility] [address] [place] [phone] Rain Souza MD [address] [place] [address] documented as of this encounter Procedures Procedure Name Priority Date/Time Associated Diagnosis Comments SEGMENTAL BLOOD PRESSURE 04/24/2024 11:20 AM EDT documented in this encounter Results * SEGMENTAL BLOOD PRESSURE (04/24/2024 11:20 AM EDT) Anatomical Region Laterality Modality Radiographic Kalani ging 04/24/2024 11:2 0 AM EDT Narrative 04/24/2024 11:23 AM EDT The [address] [address] Vein Report Signed Patient: MITZI MACIAS MR#: [id number] : 1970 Acct:[id number] Age/Sex: 53 / F ADM Date: 04/24/24 Loc: [facility] Attending Dr: Rafael Gongora Ordering Physician: Rafael Gongora Date of Service: 04/24/24 Procedure(s): VC SEGMENTAL PRESSURES Accession Number(s): [id number] cc: Mckayla Blas ASSOCIATE DRAFTER; Rafael Gongora [place] [id number] Patient Name: MITZI MACIAS MRN: [id number] date: 1970 Sex: F Assigned Patient Location: Current Patient Location: VC Accession/Order Number: [id number] Exam Date: 04/24/2024 10:25 Report Date: 04/24/2024 11:20 At the request of: RAFAEL GONGORA Procedure: VC SEGMENTAL PRESSURES EXAM: VC SEGMENTAL PRESSURES HISTORY: R09.89 COMPARISON: None. FINDINGS: Segmental pressures presented as follows (right, left) in mmHg. Brachial: 169, 166 Upper thigh: Not obtained Lower thigh: 129, 119 Calf: 124, 106 DPA: 108, 105 JAR FILLER: 100, 91 1st Toe: 124, 142 ISABELLE: [...] Signed By: 04/24/24 1123 DD/ 1120 TD/TT: Developer Programmer: Procedure Note Radiology, Radiologist, - 04/24/2024 The [place] [id number] Vein Report Signed Patient: MITZI MACIAS LMR#: [id number] : 1970Acct:[id number] Age/Sex: 53 / FADM Date: 04/24/24 Loc: [facility] Attending Dr: Rafael Gongora Ordering Physician: Rafael Gongora Date of Service: 04/24/24 Procedure(s): VC SEGMENTAL PRESSURES Accession Number(s): [id number] cc: Mckayla Blas ASSOCIATE DRAFTER; Rafael Gongora The [place] [id number] Patient Name: MITZI MACIAS MRN: [id number] date: 1970 Sex: F Assigned Patient Location: Current Patient Location: VC Accession/Order Number: [id number] Exam Date: 04/24/2024 10:25 Report Date: 04/24/2024 11:20 At the request of: RAFAEL GONGORA Procedure: VC SEGMENTAL PRESSURES EXAM: VC SEGMENTAL PRESSURES HISTORY: R09.89 COMPARISON: None. FINDINGS: Segmental pressures presented as follows (right, left) in mmHg. Brachial: 169, 166 Upper thigh: Not obtained Lower thigh: 129, 119 Calf: 124, 106 DPA: 108, 105 JAR FILLER: 100, 91 1st Toe: 124, 142 ISABELLE: [...] M.D. Signed By:04/24/24 1123 DD/ 1120 TD/TT: Developer Programmer: us Generic External Data Provider IMG XR PROCEDURES Final Result documented in this encounter Visit Diagnoses Not on filedocumented in this encounter Additional Health Concerns Assessment Noted Time PHQ-9 Depression Total Score: 3 01/17/20 24 10:08 AM EDT documented as of this encounter Care Teams Bioinformatics Specialist Relationship Specialty Start Date End Date Ty Amin MD [address] [place] [address] PCP - General Family Medicine 09/20/23 Mckayla Blas NP [address] [place] [address] PCP - [facility] 09/07/23 09/05/90 Mckayla Blas NP [address] [place] [address] Nurse Practitioner Family Medicine 09/20/23 documented as of this encounter
--- OUTSIDE RECORDS SUMMARY | 2025-01-07 09:06 | XMS_ITS | Encounter Summary ---
Author Organization [facility] Address [address] [place] [address] Care Team Providers Care Concrete Inspector Name Role Phone Ty Amin MD Primary Care Provider [phone] Mckayla Blas NETWORK OPERATIONS SPECIALIST Unavailable [phone] Mckayla Blas NETWORK OPERATIONS SPECIALIST Unavailable [phone] Encounter Details Date Type Department Care Team (Late st Contact Info) Description 04/14/2024 Orders Only [facility] [address] [place] [address] Mckayla Blas NETWORK OPERATIONS SPECIALIST [address] [place] [address] Social History Tobacco Use Types Packs/Day Years [...] you attend chur ch or mormonism services? 1 to 4 times per year 07/10/2023 Do you belong to any clubs o r organizations such as sabianism groups, unions, fraternal [...] [facility] of Occupat ional Health - Occupational Stress [...] place to sleep or slept in a intermediate (including now)? No 07/10/2023 Comments Unknown Sex [...] Visit [facility] [address] [place] [address] Mckayla Blas NP [address] [place] [address] 01/28/2025 10:50 AM EDT Office Visit [facility] [address] [place] [phone] Rain Souza MD [address] [place] [address] documented as of this encounter Procedures Procedure [...] documented as of this encounter Care Teams Concrete Inspector Relationship Specialty Start Date End Date Ty Amin MD [address] [place] [address] PCP - General Family Medicine 09/20/23 Mckayla Blas NP [address] [place] [address] [address] - [facility] 09/07/23 09/05/90 Mckayla Blas NP [address] [place] [address] Nurse Practitioner Family Medicine 09/20/23 documented as of this encounter
--- OUTSIDE RECORDS SUMMARY | 2025-01-07 09:06 | XMS_ITS | Encounter Summary ---
Author Organization [facility] Address [address] [place] [address] Care Team Providers Care Consumer Lender Name Role Phone Ty Amin MD Primary Care Provider [phone] Mckayla Blas MEXICAN FOOD COOK Unavailable [phone] Mckayla Blas MEXICAN FOOD COOK Unavailable [phone] Encounter Details Date Type Department Care Team (Late st Contact Info) Description 07/14/2024 Orders Only [facility] [address] [place] [address] Mckayla Blas MEXICAN FOOD COOK [address] [place] [address] Social History Tobacco Use Types Packs/Day Years [...] often do you attend chur ch or orthodox services? 1 to 4 times per year 07/10/2023 Do you belong to any clubs o r organizations such as orthodox groups, unions, fraternal or athletic groups, or [...] Recorded Patient Health Questionnaire-2 Score 1 01/17/2024 [facility]at ional Health - Occupational Stress [...] 01/26/2025 6:00 PM EDT Office Visit [facility] [address] [place] [address] Mckayla Blas NP [address] [place] [address] 01/28/2025 10:50 AM EDT Office Visit [facility] [address] [place] [address] Rain Souza MD [address] [place] [address] documented as of this encounter Procedures Procedure [...] documented as of this encounter Care Teams Consumer Lender Relationship Specialty Start Date End Date Ty Amin MD [address] [place] [address] PCP - General Family Medicine 09/20/23 Mckayla Blas NP [address] [place] [address] PCP - [facility] 09/07/23 09/05/90 Mckayla Blas NP [address] [place] [address] Nurse Practitioner Family Medicine 09/20/23 documented as of this encounter
--- OUTSIDE RECORDS SUMMARY | 2025-01-07 09:06 | XMS_ITS | Clinical Summary ---
Author Organization [facility] Address [address] [place] [address] Care Team Providers Care Corporate Real Estate Manager Name Role Phone Ty Amin MD Primary Care Provider [phone] AicMckayla carcamo J2EE SOFTWARE ENGINEER Unavailable [phone] Aichholtalia Mckayla J2EE SOFTWARE ENGINEER Unavailable [phone] Allergies No known active allergies Medications [...] (six) hours if needed for wheezing. Active HYDROcodone-aceta minophen ([place]) 5-325 MG tablet 1 tablet 3 (three) [...] 2 L/min continuously via nasal canula Active ipratropium-albut gilbert (Duo-Neb) 0.5-2.5 mg/3 mL nebulizer solution Daily as needed Acti ve Insulin Lispro (HUMALOG KWIKPEN SC) Inject under the skin 3 (three) times a day before meals 8-10-12 units before meals and sliding scale Active pregabalin (Lyrica) 300 MG capsuleIndication s:Diabetic polyneuropathy associated with type 2 diabetes mellitus (HCC) Take 1 capsule (300 mg) by mouth in the morning and 1 capsule (300 mg) before bedtime. 60 capsule 5 Active Tirzepatide (Mounjaro) 15 MG/0.5ML solution auto-injectorIndi cations:Type 2 diabetes mellitus with other circulatory complications (HCC) INJECT 15MG SUBCUTANEOUSLY ONCE A WEEK 6 mL 1 Active Accu-Chek Guide Test test stripIndications: Type 2 diabetes mellitus with other circulatory complications ([facility]) USE TO TEST BLOOD SUGAR 4 TIMES DAILY 400 strip 1 Active baclofen (Lioresal) 10 MG tablet Take 10 mg by mouth in the morning and 10 mg in the evening and 10 mg before bedtime. Active naloxone (Narcan) 4 mg/0.1 mL nasal spray Administer 4 mg into affected nostril(s) if needed Active nicotine (Nicoderm, Step 1) 21 MG/24HR patchIndications: Encounter for smoking cessation counseling Place 1 patch over 24 hours on the skin 1 (one) time each day at the same time May either leave patch on 24 hours, or apply in the morning and take of at bedtime, rotate sites 30 patch 1 025 Active Lantus SoloStar 100 UNIT/ML pen Active pregabalin (Lyrica) 150 MG capsule Take 150 mg by mouth Daily 025 Active ammonium lactate (Lac-Hydrin) 12 % lotion APPLY TO BILATERAL FEET EVERY DAY 025 Active fluconazole (Diflucan) 150 MG tabletIndications :Antibiotic-induc ed yeast infection One time dose, repeat in 3 days . Do not take cholesterol pill while taking this medication. Once finished then resume 2 tablet 1 Active Roflumilast 500 MCG tabletIndications :Chronic obstructive pulmonary disease, unspecified (HCC) Take 1 tablet by mouth Daily 90 tablet 1 025 2024 Active HySept 0.25 % external solution APPLY TO GAUZE AND PLACE ON RIGHT LOWER LEG ULCERS, CHANGE DAILY 03/19/2 025 Active amitriptyline (Elavil) 25 MG tabletIndications :Insomnia Take 1 tablet (25 mg) by mouth at bedtime 90 tablet 1 2024 Active aspirin 81 MG chewable tabletIndications :Type 2 diabetes mellitus with complication, with long-term current use of insulin (HCC) Chew 1 tablet (81 mg) Daily 90 tablet 3 025 2024 Active cetirizine (ZyrTEC) 10 MG tabletIndications :Non-seasonal allergic rhinitis, unspecified trigger Take 1 tablet (10 mg) by mouth Daily 90 tablet 1 025 2024 Active dapagliflozin (Farxiga) 10 MGIndications:Typ e 2 diabetes mellitus with unspecified complications (HCC) Take 1 tablet (10 mg) by mouth Daily 90 tablet 1 2024 Active DULoxetine (Cymbalta) [address] capsuleIndication s:Anxiety and depression Take 1 capsule (60 mg) by mouth in the morning and 1 capsule (60 mg) before bedtime. Do not crush or chew. 180 capsule 1 2024 Active ergocalciferol (Vitamin D2) 1.25 MG (18989 UT) capsuleIndication s:Vitamin D deficiency, unspecified Take 1 capsule (1.25 mg) by mouth 2 (two) times a week 24 capsule 1 2024 Active hydrALAZINE (Apresoline) 25 MG tabletIndications :Primary hypertension Take 1 tablet (25 mg) by mouth in the morning and 1 tablet (25 mg) before bedtime. 180 tablet 1 025 2024 Active lisinopril 20 MG tabletIndications :Primary hypertension Take 1 tablet (20 mg) by mouth Daily 90 tablet 1 2024 Active omeprazole (PriLOSEC) [address] capsuleIndication s:Gastro-esophage al reflux disease without esophagitis Take 1 capsule (20 mg) by mouth in the morning. Take before meals. 90 capsule 1 025 2024 Active furosemide (Lasix) 20 MG tabletIndications :Bilateral lower extremity edema Take 1 tablet (20 mg) by mouth Daily as needed (edema) Take in the afternoon as needed 90 tablet 1 025 2024 Active potassium chloride ER (Micro-K) 10 MEQ ER capsuleIndication s:Bilateral lower extremity edema Take 1 capsule (10 mEq) by mouth Daily Take 1 capsule (10 mEq) by mouth in the morning. 90 capsule 1 025 2024 Active furosemide (Lasix) 40 MG tabletIndications :Bilateral lower extremity edema Take 1 tablet (40 mg) by mouth Daily 90 tablet 1 025 2024 Active amoxicillin-clavu lanate (Augmentin) 875-125 MG tablet Take 1 tablet by mouth every 12 (twelve) hours Active predniSONE (Deltasone) 10 MG tablet 4 TABS X3 DAYS, 3TABS X3 DAYS, 2 TABS X3 DAYS, 1 TAB X3 DAYS, 1/2 TAB X4 DAYS Active simvastatin (Zocor) 10 MG tabletIndications :Hyperlipidemia, unspecified Take 1 tablet (10 mg) by mouth at bedtime 90 tablet 1 025 2024 Active varenicline (Chantix) 1 MG tabletIndications :Tobacco user,Encounter for smoking cessation counseling Take 1 tablet (1 mg) by mouth in the morning and 1 tablet (1 mg) before bedtime. Take with full glass of water. 60 tablet 1 025 2024 Active simvastatin (Zocor) 10 MG tabletIndications :Hyperlipidemia, unspecified Take 1 tablet (10 mg) by mouth at bedtime 90 tablet 1 025 2024 Discontinued varenicline (Chantix) 1 MG tabletIndications :Tobacco user,Encounter for smoking cessation counseling Take 1 tablet (1 mg) by mouth in the morning and 1 tablet (1 mg) before bedtime. Take with full glass of water.. 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 Wound Care Pulmonary hypertension 09/17/2023 Assessment & Plan (12/09/2024 7:23 AM EDT): Has seen [facility] Cardiology Assessment & Plan (11/15/2023 3:49 PM EDT): Saw [facility] Cardiology See notes Going to see Pulmonary Assessment & Plan (09/27/2023 1:03 PM EDT): Needs to wear her PAP I am also going to have her see [facility] Cardiology as well PAD (peripheral artery disease) [...] Plan (10/27/2024 7:06 AM EDT): Follows with verena Needs smoking cessation Current meds: duoneb, albuterol, daliresp, Assessment & Plan (08/27/2024 7:31 AM EST): Follows with verena Needs smoking cessation Current [...] spiriva Will trial breztri: #2 samples given [id number], exp 03/03, rinse mouth after use Give [...] AM EST): Current meds: albuterol, duoneb, 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 Assessment & Plan (01/17/2024 [...] lost script I did contact [facility] in [place], they will get another fill on this [...] & Plan (07/10/2023 11:59 AM EST): Continue ricardo santiago, discussed skin care regimines as well RAGHU [...] of the risks of continued smoking: stroke, VT, all forms of cancer, lung disease, and [...] of the risks of continued smoking: stroke, VT, all forms of cancer, lung disease, and [...] Encounters Date Type Department Care Team Description 12/18/2024 Refill [facility] [address] [place] [address] Mckayla Blas NP Hyperlipidemia, unspecified ; Tobacco user; Encounter for smoking cessation counseling 12/17/2024 Telephone [facility] [address] [place] [phone] Mckayla Blas NP Error (VOID this visit) 12/09/2024 10:00 AM EDT Office Visit [facility] [address] [place] [address] Mckayla Blas NP Cellulitis of left lower extremity (Primary Dx); COPD exacerbation (HCC); Primary hypertension ; Pulmonary hypertension (HCC); Morbid (severe) obesity due to excess calories ([facility]); Type 2 diabetes mellitus with complication, with long-term current use of insulin (HCC); Anxiety and depression ; Fever, unspecified fever cause 12/09/2024 Bamboo flowsheet [facility] [address] [place] [address] Mckayla Blas NP 12/08/2024 Travel 12/04/2024 Clinisync Result Encounter [facility] External Department Unsolicited Provider, Generic External Data 10/29/2024 Refill [facility] [address] [place] [phone] Mckayla Blas NP Tobacco user; Encounter for smoking cessation counseling 10/27/2024 2:00 PM EDT Office Visit [facility] [address] [place] [address] Mckayla Blas NP Primary hypertension (Primary Dx); Diabetic polyneuropathy associated with type 2 diabetes mellitus (HCC); Chronic diastolic heart failure ([facility]); Bilateral lower extremity edema; Morbid (severe) obesity due to excess calories ([facility]); Type 2 diabetes mellitus with complication, with long-term current use of insulin ([facility]); Anxiety and depression ; Cigarette nicotine dependence without complication; Encounter for screening mammogram for malignant neoplasm of breast; Insomnia; Non-seasonal allergic rhinitis, unspecified trigger; Type 2 diabetes mellitus with unspecified complications ([facility]); Vitamin D deficiency, unspecified; Gastro-esophageal reflux disease without esophagitis; PAD (peripheral artery disease); Gastroesophageal reflux disease, unspecified whether esophagitis present; Venous ulcer of right leg ([facility]) 10/27/2024 Refill [facility] [address] [place] [address] Mckayla Blas NP 10/21/2024 Refill [facility] [address] [place] [address] Mckayla Blas NP Chronic obstructive pulmonary disease, unspecified ([facility]) 10/08/2024 11:20 AM EDT Office Visit [facility] [address] [place] [address] Rain Odonnell MD Type 2 diabetes mellitus with hyperglycemia, with long-term current use of insulin ([facility]) (Primary Dx); Encounter for dietary consultation; Vitamin D deficiency; Primary hypertension ; Insulin long-term use ([facility]); Hyperlipemia, mixed ; Microalbuminuria; Class 3 severe obesity due to excess calories with serious comorbidity and body mass index (BMI) of 50.0 to 59.9 in adult ([facility]) 10/08/2024 Clinisync Result Encounter [facility] Department Unsolicited Mckayla Blas NP from Last 3 Months Immunizations Immunization Administration Dates Next Due Influenza Whole 05/02/2013 Influenza, [id number] 04/16/2017,05/10/2016 Influenza, Unspecified 05/18/2023,04/16/2017,08/2015 Influenza, injectable, quadrivalent [...] week 08/26/2024 How often do you attend [facility] or [facility] services? More than 4 times per year 08/26/2024 Do you belong to any clubs o r organizations such as yazdanism groups, unions, fraternal or athletic groups, or [...] Recorded Patient Health Questionnaire-2 Score 1 01/17/2024 [facility] - [...] in a retirement (including now)? No 07/10/2023 Housing Stability Vital Sign Answer Wilmer e Recorded In the last 12 months, was t here a time when you were not able to pay the mortgage or rent on time? No 08/26/2024 Number of Times Moved in the Last Year Not on fi le 08/26/2024 At any time in the past 12 m [facility], were you homeless or living in a retirement (including now)? No 08/26/2024 Comments Unknown Sex [...] Office Visit [facility] [address] [place] [address] Mckayla Blas NP [address] [place] [address] 01/28/2025 10:50 AM EDT Office Visit [facility] [address] [place] [phone] Rain Odonnell MD [address] [place] [address] Health Maintenance Due Date Last Done Comments CT Colonography 1970 Colonoscopy 1970 FIT 1970 FOBT 1970 Sigmoidoscopy 1970 HPV/Cotest 2000 Pap Smear 10/07/2018 10/08/2015, 10/08/2015 Mammogram 12/13/2024 12/14/2023, 0601/2024, 11/22/2022 Diabetes: Hemoglobin A1C 01/07/2025 025, 05/27/2024, 02/15/2024, Additional history exists Medicare Annual Wellness (AWV) 01/16/2025 01/17/2024 , 01/17/2024 Influenza Vaccine (#1) 2025 , 05/18/2023, 04/16/2017, Additional history exists Diabetes: Retinopathy Screening 07/14/2025 07/14/2024, 05/13/2024, 05/27/2019 Colorectal Cancer Screening 08/03/2025 FIT-DNA 08/03/2025 08/03/2022 Diabetes: Urine Protein Screening 10/08/20252 025, 11/23/2022 Cervical Cancer Screening Discontinued Procedures Procedure Name Priority Date/Time Associated Diagnosis Comments BLOOD CULTURE 2 Routine 12/04/2024 5:28 PM EDT BLOOD CULTURE 1 Routine 12/04/2024 4:44 PM EDT POCT GLYCOSYLATED HEMOGLOBIN (HGB A1C) Routine 10/08/2024 11:25 AM EDT Type 2 diabetes mellitus with hyperglycemia, with long-term current use of insulin (HCC) POCT GLUCOSE Routine 10/08/2024 11:25 AM EDT Type 2 diabetes mellitus with hyperglycemia, with long-term current use of insulin (HCC) [facility] VITAMIN D 25 [place] Routine 10/08/2024 [...] Recently Relevant to Health Maintenance Results * BLOOD CULTURE 2 (12/04/2024 5:28 PM EDT) BLOOD CULTURE 2 Blood Culture 2 NG5D NO GROWTH AT 5 DAYS.^NO GROWTH AT 5 DAYS. [facility] 12/04/2024 5:28 PM EDT 12/04/2024 6:18 PM EDT Narrative XAVI - 12/10/2024 2:31 PM EDT LEFT AC us Generic External Data Provider LAB BLOOD ORDERAB LES Final Result [facility] * BLOOD CULTURE 1 (12/04/2024 4:44 PM EDT) BLOOD CULTURE 1 Blood Culture 1 NG5D NO GROWTH AT 5 DAYS.^NO GROWTH AT 5 DAYS. [facility] 12/04/2024 4:44 PM EDT 12/04/2024 5:17 PM EDT Narrative [facility] - 12/10/2024 2:32 PM EDT Generic External Data Provider LAB BLOOD ORDERAB LES Final Result [facility] * POCT glycosylated hemoglobin (Hb A1C) docked device (10/08/2024 11:25 AM EDT) Pathologist [facility] Hemoglobin A1C 7.4 Blood Venous blood specimen / Unknown 10/08/2024 11:25 AM EDT Rain Odonnell MD POINT OF CARE TEST ENTER/EDIT ORDERABLES Final Result * POCT glucose manually resulted (10/08/2024 11:25 AM EDT) Glucose Blood, POC 97 mg/dL Blood Capillary blood specimen / Unknown 10/08/2024 11:25 AM EDT Rain Odonnell MD POINT OF CARE TEST ENTER/EDIT ORDERABLES Final Result * [facility] VITAMIN D 25 [place] (10/08/2024 9:55 AM EDT) VITAMIN D 8.3 ng/mL [facility] Comment: <20 ng/mL Vit D deficient 20-<30 ng/mL Vit D insufficient 30-100 ng/mL Vit D sufficient >100 ng/mL Potential Toxicity 10/08/2024 9:55 AM EDT 10/08/2024 9:56 AM EDT Narrative [facility] - 10/08/2024 11:39 AM EDT Mckayla Aichholz J2EE SOFTWARE ENGINEER [facility] Final Result Performing Organization Address [facility] de Phone Number [facility] TB * (ABNORMAL) [facility] LIVER PANEL (10/08/2024 9:55 AM EDT) [...] NP [facility] Final Result Performing Organization Address [facility] de Phone Number [facility] TB * (ABNORMAL) ALL URIC ACID (10/08/2024 9:55 AM EDT) URIC ACID 6.2(H) 2.6 - 6.0 mg/dL TB 10/08/2024 9:55 AM EDT 10/08/2024 9:56 AM EDT Narrative [facility] - 10/08/2024 11:24 AM EDT Mckayla Blas J2EE SOFTWARE ENGINEER [facility] Final Result Performing Organization Address [facility] de Phone Number [facility] TB * (ABNORMAL) ALL LIPID PROFILE (FASTING) (10/08/2024 9:55 AM EDT) TRIGLYCERIDES 127 <=150 mg/dL [facility]H CHOLESTEROL 118 <=200 mg/dL [facility] HDL CHOLESTEROL 36(L) 40 - 60 mg/dL TB Comment: > or =60 mg/dl - LOW CARDIOVASCULAR RISK <40 mg/dl - HIGH CARDIOVASCULAR RISK LDL CHOLESTEROL CALCULATED 57.0 mg/dL TB Comment: <100 mg/dl OPTIMAL 100-129 mg/dl NEAR OR ABOVE OPTIMAL 130-159 mg/dl BORDERLINE HIGH 160-189 mg/dl HIGH >190 mg/dl VERY HIGH VLDL CHOLESTEROL 25.4 mg/dL TB CHOL HDL RATIO 3.3 TB Comment: 3.3 - 4.4 LOW RISK 4.4 - 7.1 AVERAGE RISK 7.1 - 11.0 MODERATE RISK >11.0 HIGH RISK 10/08/2024 9:55 AM EDT 10/08/2024 9:56 AM EDT Narrative [facility] - 10/08/2024 11:24 AM EDT us Mckayla Blas NP [facility] Final Result [facility] * (ABNORMAL) ALL BASIC METABOLIC PANEL (10/08/2024 [...] 0.55 - 1.02 mg/dL [facility] TBH EGFR-AF KOSOVAN >60 >=60 mL/min/1.7 3m 2 TBH TBH EGFR-NON AF KOSOVAN >60 >=60 mL/min/1.7 3m 2 TBH BUN CREATININE RATIO 28.1 TBH CALCIUM 9.1 8.5 - 10.1 mg/dL TB 10/08/2024 9:55 AM EDT 10/08/2024 9:56 AM EDT Narrative [facility] - 10/08/2024 11:06 AM EDT us Generic External Data Provider [facility] F inal Result Performing Organization Address [facility] de Phone Number [facility] * (ABNORMAL) [...] NP [facility] Final Result Performing Organization Address [facility] de Phone Number [facility] * (ABNORMAL) [...] NP [facility] Final Result Performing Organization Address [facility] de Phone Number [facility] * (ABNORMAL) TBH MICROALB CREAT RATIO RANDOM [...] Narrative [facility] - 10/08/2024 11:06 AM EDT us Mckayla Blas NP [facility] Final Result Performing Organization Address [facility] de Phone Number [facility] * Diabetic Retinopathy Screening - OU - Both Eyes (07/14/2024 3:09 PM EST) Anatomical Region Laterality Modality Head Other us Mckayla Blas NP OPHTH PHOTOGRAPHY Final Result * MM TOMOSYNTHESIS SCREENING BI (12/14/2023 11:21 AM EDT) Anatomical Region Laterality Modality Other 12/14/2023 11:2 1 AM EDT Narrative 12/14/2023 11:22 [place] [address] Mammography Report Signed Patient: MITZI MACIAS MR#: [id number] : 1970 Acct:[id number] Age/Sex: 53 / F ADM Date: 12/13/23 Loc: MAMMO Attending Dr: Mckayla Blas NP Ordering Physician: Mckayla Blas NP Results: Date of Service: 12/13/23 Follow Up: Procedure(s): MM tomosynthesis screening BI Accession Number(s): [id number] cc: Mckayla Blas NP Patient Name: MITZI MACIAS MR#: [id number] : 1970 Exam Date: 12/13/2023 Ordering Doctor: [...] unknown cancer at age 75. LOCATION: [facility] BREAST COMPOSITION: The breasts are almost [...] Signed By: 12/14/23 1122 DD/ 1121 TD/TT: Agricultural Education Teacher: Procedure Note Radiology, Radiologist, MD - 12/14/2023 [place] [address] Mammography Report Signed Patient: MITZI MACIAS LMR#: [id number] : 1970Acct:[id number] Age/Sex: 53 / FADM Date: 12/13/23 Loc: MAMMO Attending Dr: Mckayla Blas NP Ordering Physician: Mckayla Blas NPResults: Date of Service: 12/13/23Follow Up: Procedure(s): MM tomosynthesis screening BI Accession Number(s): [id number] cc: Mckayla Blas NP Patient Name: MITZI MACIAS MR#: [id number] : 1970 Exam Date: 12/13/2023 Ordering Doctor: [...] unknown cancer at age 75. LOCATION: [facility] BREAST COMPOSITION: The breasts are almost [...] M.D. Signed By:12/14/23 1122 DD/ 1121 TD/TT: Agricultural Education Teacher: Mckayla Blas NP [facility] Final Result from Last 3 Months or Most Recently Relevant to Health Maintenance Insurance [employer] Care Teams Corporate Real Estate Manager Relationship Specialty Start Date End Date Ty Amin MD [address] [place] [phone] PCP - General Family Medicine 09/20/23 Mckayla Blas NP [address] [place] [phone] PCP - [facility] 09/07/23 09/05/90 Mckayla Blas NP [address] [place] [phone] Nurse Practitioner Family Medicine 09/20/23
--- OUTSIDE RECORDS SUMMARY | 2025-01-07 09:06 | XMS_ITS | Clinical Summary ---
Author Organization [facility] Address [address] [place] [address] Care Team Providers Care Electrical Development Engineer Name Role Phone Mckayla Blas MD Primary Care Provider Allergies No known active allergies Medications amitriptyline (Elavil) 50 mg tablet Take 1 tablet by mouth at bedtime. Active baclofen (Lioresal) 10 mg tablet Take 1 tablet by mouth at bedtime. Active Breztri Aerosphere 160-9-4.8 mcg/actuation HFA aerosol inhaler INHALE 2 PUFFS BY MOUTH IN THE MORNING AND BEFORE BEDTIME *RINSE MOUTH AFTER USE* 4 Active cetirizine (ZyrTEC) 10 mg tablet Take 10 mg by mouth if needed. 4 Active Farxiga 10 mg 10 mg in the morning. 4 Active diclofenac (Voltaren) 75 mg EC tablet Take 75 mg by mouth twice a day. 2 Active Mounjaro 10 mg/0.5 mL pen injector INJECT 10MG SUBCUTANEOUSLY ONCE A WEEK 4 Active insulin aspart (NovoLOG) 100 unit/mL (3 mL) injection pen Novolog Flexpen U-100 Insulin aspart 100 unit/mL (3 mL) subcutaneous Active insulin glargine (Lantus Solostar U-100 Insulin) 100 unit/mL (3 mL) injection pen INJECT 48 UNITS SUBCUTANEOUSLY TWICE DAILY 2 Active HYDROcodone-ac etaminophen (Devens) 5-325 mg tablet TAKE 1 TABLET BY MOUTH THREE TIMES A DAY NEEDED FOR PAIN MUST LAST 30 DAYS 4 Active DULoxetine (Cymbalta) [address] capsule Take 1 tablet by mouth in the morning. Active ergocalciferol (Vitamin D-2) 1.25 MG (37061 Units) capsule Take 1.25 mg by mouth. Active furosemide (Lasix) 40 mg tablet Take 1 tablet by mouth in the morning. Active furosemide (Lasix) 20 mg tablet if needed. 4 Active hydrALAZINE (Apresoline) 25 mg tablet Take 25 mg by mouth in the morning and at bedtime. 4 Active lisinopril 20 mg tablet Take 1 tablet by mouth in the morning. Active omeprazole (PriLOSEC) [address] capsule Take by mouth in the morning. 4 Active potassium chloride ER (Micro-K) 10 mEq ER capsule Take 1 tablet by mouth in the morning. Active pregabalin (Lyrica) 300 mg capsule Take 1 capsule by mouth in the morning and at bedtime. Active simvastatin (Zocor) 10 mg tablet Take 1 tablet by mouth in the morning. Active roflumilast (Daliresp) 250 mcg tablet TAKE 1 TABLET BY MOUTH DAILY FOR 28 DAYS 4 Active varenicline tartrate (Chantix) 1 mg tablet Take 1 mg by mouth two times daily. 5 Active aspirin 81 mg chewable tablet Chew 81 mg in the morning. 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 08/27/2024 long-term current use of inhaled steroid 025 Vitamin deficiency 08/27/2024 Bad odor of urine 08/08/2024 Chronic diastolic [...] Assessment & Plan: Open wounds refer to [facility] Wound Care Vaginal yeast infection 08/17/2023 [...] am also going to have her see [facility] Cardiology as well Encounters Date Type Department Care Team Description 01/06/2025 11:20 AM EDT Office Visit [place] [address] [place] [address] Karma Chatterjee CNP Chronic diastolic heart failure (CMS/HCC) (Primary Dx); Bilateral lower extremity edema; Primary hypertension; Mixed hyperlipidemia; Venous insufficiency; Class 3 severe obesity due to excess calories with serious comorbidity and body mass index (BMI) of 50.0 to 59.9 in adult; Type 2 diabetes mellitus with complication, with long-term current use of insulin (CMS/HCC); Obstructive sleep apnea; LVH (left ventricular hypertrophy) 10/21/2024 Telephone [facility] [address] [place] [address] Mickie Hammond MA from Last 3 Months Family History Medical History Relation Name Comments Heart attack Paternal Grandmother Relation Name Status Comments Father Mother Paternal Grandmother Social History Tobacco Use Types Packs/Day Years Used Date Smoking Tobacco: Every Day Cigarettes Smokeless Tobacco: Never Tobacco Cessation:Ready to Q uit: Not Asked; Counseling Given: Not Answered Alcohol Use Standard Drinks/Week Comments Not Currently 0 (1 standard drink = 0.6 oz pur e alcohol) [place] Safety & Environment Answer Date Rec orded [...] Pulse 83 01/06/2025 11:41 AM EDT Temperature 36.7 C (98.1 F) 12/12/2018 2:44 PM EDT Respiratory Rate - - Oxygen Saturation 93% 01/06/2025 11:41 AM EDT Inhaled Oxygen Concentration - - Weight 171 kg (376 lb) 01/06/2025 11:41 AM EDT Height 170.2 cm (5' 7 ) 01/06/2025 11:41 AM EDT Body Mass Index 58.89 01/06/2025 11:41 AM EDT Plan of Treatment Health Maintenance Due Date [...] Vaccines (1 of 2) 2020 COVID-19 Vaccine (4 - season) 2024 07/19/2021, 10/28/2020, 10/08/2020 Influenza Vaccine (#1) 2025 , 04/16/2017, 05/10/2016, Additional history exists HIB Vaccines [...] topic Meningococcal Vaccine Aged Out No franchesca nilam eligible based on patient's age to complete this topic Rotavirus Vaccines Aged Out No longer eligible based on patient's age to complete this topic Insurance [employer] MEDICARE Care Teams Electrical Development Engineer Relationship Specialty Start Date End Date Mckayla Blas MD [facility] [place] [address] PCP - General Nurse Practitioner 11/13/23
--- OUTSIDE RECORDS SUMMARY | 2025-01-07 09:06 | XMS_ITS | Encounter Summary ---
Author Organization [facility] Address [address] [place] [address] Care Team Providers Care Spool Maker Name Role Phone Ty Amin MD Primary Care Provider [phone] Ty Amin MD Primary Care Provider [phone] Mckayla Blas MAIL FORWARDING SYSTEM MARKUP CLERK Unavailable [phone] Mckayla Blas MAIL FORWARDING SYSTEM MARKUP CLERK Unavailable [phone] Encounter Details Date Type Department Care Team (Late st Contact Info) Description 08/31/2023 Clinisync Result Encounter [facility] External Department Unsolicited Andra Alcala PA [address] [place] [address] [address] [place], [place] [id number] Social History Tobacco Use Types Packs/Day Years [...] often do you attend chur ch or tenriism services? 1 to 4 times per year 07/10/2023 Do you belong to any clubs o r organizations such as buddhism groups, unions, fraternal or athletic groups, or [...] Recorded Patient Health Questionnaire-2 Score 2 07/10/2023 [facility] - Occupational Stress Questionnaire Answer [...] place to sleep or slept in a snf (including now)? No 07/10/2023 Comments Unknown Sex and Gender Information Value Date Recorded Sex Assigned at Not on file Legal Sex Female 6:50 PM EDT Gender Identity Not on file Sexual Orientation Not on file documented as of this encounter Plan of Treatment Upcoming Encounters Date Type Department Care Team (Late st Contact Info) Description 01/26/2025 6:00 PM EDT [facility] [address] [place] [address] Mckayla Blas NP [address] [place] [address] 01/28/2025 10:50 AM EDT Office Visit [facility] [address] [place] [address] Rain Souza MD [address] [place] [address] documented as of this encounter Procedures Procedure [...] Provider LAB BLOOD ORDERAB LES Final Result [facility] * BLOOD CULTURE 1 (09/10/2023 2:05 PM EST) BLOOD CULTURE 1 Blood Culture 1 NG5D NO GROWTH AT 5 DAYS.^NO GROWTH AT 5 DAYS. [facility] 09/10/2023 2:05 PM EST 09/10/2023 2:28 PM EST Narrative [facility] - 09/16/2023 1:07 PM EDT Generic External Data Provider LAB BLOOD ORDERAB LES Final Result [facility] * ECG 12-LEAD (08/31/2023 6:08 PM EST) Anatomical Region Laterality Modality Other 08/31/2023 6:08 PM EST Narrative 09/02/2023 7:32 [place] [address] Electrocardiograph Report Signed Patient: MITZI MACIAS MR#: [id number] : 1970 Acct:[id number] Age/Sex: 53 / F ADM Date: 08/31/23 Loc: [place] 214-[address]: Jacqueline Becerra D.O. 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 Signed By: 09/02/23 0732 DD/ 180 TD/TT: Director Of Food And Beverage Services: Procedure Note Radiology, Radiologist, MD - 09/02/2023 [place] [address] Electrocardiograph Report Signed Patient: MITZI MACIAS LMR#: [id number] : 1970Acct:[id number] Age/Sex: 53 / FADM Date: 08/31/23 Loc: MS 214-[address]: Jacqueline Becerra D.O. 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 Signed By:09/02/23 0732 DD/ 1808 TD/TT: Director Of Food And Beverage Services: us Andra MAYERS [facility] Final Result documented in this encounter Visit Diagnoses Not on filedocumented in this encounter Care Teams Spool Maker Relationship Specialty Start Date End Date Ty Amin MD PCP - General Family Medicine 01/05/23 09/19/23 Ty Amin MD [address] [place] [address] PCP - General Family Medicine 09/20/23 Mckayla Blas NP [address] [place] [address] PCP - [facility] 09/07/23 09/05/90 Mckayla Blas NP [address] [place] [address] Nurse Practitioner Family Medicine 09/20/23 documented as of this encounter
--- OUTSIDE RECORDS SUMMARY | 2025-01-07 09:06 | XMS_ITS | Encounter Summary ---
Author Organization [facility] Address [id number] [address] [place] [address] Care Team Providers Care Carpenter Form Name Role Phone JuanjoseMckayla carcamo Krystal ENT CONSULTANT-NETBACKUP ADMIN Primary Care Provider Encounter Details Date Type Department Care Team (Late st Contact Info) Description 06/11/2020 Orders Only [facility] [address] [place] [address] External, Scanning Provider Social History Tobacco Use [...] on filedocumented in this encounter Care Teams Carpenter Form Relationship Specialty Start Date End Date Mckayla Blas, ENT CONSULTANT-NETBACKUP ADMIN [address] [place] [address] PCP - General Nurse Practitioner 09/25/18 documented as of this encounter
--- OUTSIDE RECORDS SUMMARY | 2025-01-07 09:06 | XMS_ITS | Encounter Summary ---
Author Organization [facility] Address [address] [place] [address] Care Team Providers Care Bicycle Assembler Name Role Phone Ty Amin MD Primary Care Provider [phone] Ty Amin MD Primary Care Provider [phone] Mckayla Blas DIRECTOR OF INSTITUTIONAL RESEARCH Unavailable [phone] Mckayla Blas DIRECTOR OF INSTITUTIONAL RESEARCH Unavailable [phone] Encounter Details Date Type Department Care Team (Late st Contact Info) Description 09/12/2023 Orders Only [facility] [address] [place] [place] [address] Social History Tobacco Use Types Packs/Day Years [...] How often do you attend chur or jehovah's witness services? 1 to 4 times per year [...] Recorded Patient Health Questionnaire-2 Score 2 07/10/2023 [facility] - [...] a long term (including now)? No 07/10/2023 Comments Unknown Sex and Gender Information Value Date Recorded Sex Assigned at Not on file Legal Sex Female 6:50 PM EDT Gender Identity Not on file Sexual Orientation Not on file documented as of this encounter Plan of Treatment Upcoming Encounters Date Type Department Care Team (Late st Contact Info) Description 01/26/2025 6:00 PM EDT Office Visit [facility] [address] [place] [address] Mckayla Blas NP [address] [place] [address] 01/28/2025 10:50 AM EDT Office Visit [facility] [address] [place] [address] Rain Souza MD [address], [address] [place] [address] documented as of this encounter Procedures Procedure Name Priority Date/Time Associated Diagnosis Comments XR CHEST 1 VIEW Routine 09/11/2023 4:52 PM EST documented in this encounter Results * XR chest 1 view (09/11/2023 4:52 PM EST) Anatomical Region Laterality Modality Chest Radiographic [facility] IMG XR PROCEDURES Final Result documented in this encounter Visit Diagnoses Not on filedocumented in this encounter Care Teams Bicycle Assembler Relationship Specialty Start Date End Date Ty Amin MD PCP - General Family Medicine 01/05/23 09/19/23 Ty Amin MD [address] [place] [address] PCP - General Family Medicine 09/20/23 Mckayla Blas NP [address] [place] [address] PCP - [facility] 09/07/23 09/05/90 Mckayla Blas NP [address] [place] [address] Nurse Practitioner Family Medicine 09/20/23 documented as of this encounter
--- OUTSIDE RECORDS SUMMARY | 2025-01-07 09:06 | XMS_ITS | Encounter Summary ---
Author Organization [facility] Address [address] [place] [address] Care Team Providers Care Ppap Coordinator Name Role Phone Ty Amin MD Primary Care Provider [phone] Mckayla Blas NP Unavailable [phone] Mckayla Blas NP Unavailable [phone] Encounter Details Date Type Department Care [...] often do you attend chur ch or moravian services? 1 to 4 times per year 07/10/2023 Do you belong to any clubs o r organizations such as yarsanism groups, unions, fraternal [...] Recorded Patient Health Questionnaire-2 Score 1 01/17/2024 [facility] of Occupat ional Health - Occupational [...] in a assisted (including now)? No 07/10/2023 Comments Unknown Sex [...] Office Visit [facility] [address] [facility] [place] [address] Mckayla Blsa NP [address] [facility] [place] [address] 01/28/2025 10:50 AM EDT Office Visit [facility] [address] [place] [address] Rain Souza MD [address] [place] [address] documented as of this encounter Procedures Procedure Name Priority Date/Time Associated Diagnosis Comments MR LUMBAR SPINE WO CON 05/12/2024 2:41 PM EST documented in this encounter Results * MR LUMBAR SPINE WO CON (05/12/2024 2:41 PM EST) Anatomical Region Laterality Modality Other 05/12/2024 2:41 PM EST Narrative 05/12/2024 2:43 [place] [address] Magnetic Resonance Report Signed Patient: MITZI MACIAS MR#: [id number] : 1970 Acct:[id number] Age/Sex: 53 / F ADM Date: 05/12/24 Loc: MRI Attending Dr: Angela Chin NP Ordering Physician: Angela Chin NP Date of Service: 05/12/24 Procedure(s): MR lumbar spine wo con Accession Number(s): [id number] cc: Mckayla Blas DENTAL DETAIL REPRESENTATIVE; Angela Chin NP [place] [id number] Patient Name: MITZI MACIAS MRN: [id number] date: 1970 Sex: F Assigned Patient Location: MRI Current Patient Location: CT Accession/Order Number: [id number] Exam Date: 05/12/2024 09:21 Report Date: 05/12/2024 [...] Signed By: 05/12/24 1443 DD/ 1441 TD/TT: Conductor Yard: Procedure Note Radiology, Radiologist, MD - 05/12/2024 [place] [address] Magnetic Resonance Report Signed Patient: MITZI MACIAS LMR#: [id number] : 1970Acct:[id number] Age/Sex: 53 / FADM Date: 05/12/24 Loc: MRI Attending Dr: Angela Chin NP Ordering Physician: Angela Chin NP Date of Service: 05/12/24 Procedure(s): MR lumbar spine wo con Accession Number(s): [id number] cc: cMkayla Blas NP; Angela Chin NP [address] [place] [address] Patient Name: MITZI MACIAS MRN: [id number] date: 1970 Sex: F Assigned Patient Location: MRI Current Patient Location: CT Accession/Order Number: [id number] Exam Date: 05/12/2024 09:21 Report Date: 05/12/2024 [...] M.D. Signed By:05/12/24 1443 DD/ 144 TD/TT: Conductor Yard: us Generic External Data Provider [facility] Final Result documented in this encounter Visit Diagnoses Not on filedocumented in this encounter Additional Health Concerns Assessment Noted Time PHQ-9 Depression Total Score: 3 01/17/20 24 10:08 AM EDT documented as of this encounter Care Teams Ppap Coordinator Relationship Specialty Start Date End Date Ty Amin MD [address] [place] [address] PCP - General Family Medicine 09/20/23 Mckayla Blas NP [address] [place] [address] PCP - [facility] 09/07/23 09/05/90 Mckayla Blas NP [address] [place] [address] Nurse Practitioner Family Medicine 09/20/23 documented as of this encounter
--- OUTSIDE RECORDS SUMMARY | 2025-01-07 09:06 | XMS_ITS | Encounter Summary ---
Author Organization [facility] tem Address [id number] [address] [place] [address] Care Team Providers Care Plush Dresser Name Role Phone JuanjoseMckayla carcamo Krystal PEREZN-CUSTOM DECORATING CONSULTANT Primary Care Provider Encounter Details Date Type Department Care Team (Late st Contact Info) Description 05/31/2020 Orders Only [facility] [address] [place] [address] External, Scanning Provider Social History Tobacco Use [...] on filedocumented in this encounter Care Teams Plush Dresser Relationship Specialty Start Date End Date Mckayla Blas, COMPUTER GAME TESTER-CUSTOM DECORATING CONSULTANT [address] [place] [address] PCP - General Nurse Practitioner 09/25/18 documented as of this encounter
--- OUTSIDE RECORDS SUMMARY | 2025-01-07 09:06 | XMS_ITS | Encounter Summary ---
Author Organization [facility] Address [address] [place] [address] Care Team Providers Care Aircraft Layout Worker Name Role Phone Ty Amin MD Primary Care Provider [phone] Mckayla Blas NP Unavailable [phone] Mckayla Blas NP Unavailable [phone] Encounter Details Date Type Department Care [...] often do you attend chur ch or catholic services? 1 to 4 times per year 07/10/2023 Do you belong to any clubs o r organizations such as jain groups, unions, fraternal or athletic groups, or [...] Recorded Patient Health Questionnaire-2 Score 1 01/17/2024 [facility] of Occupat ional Health - Occupational [...] [facility] [address] [place] [address] Mckayla Blas NP [address] [place] [address] 01/28/2025 10:50 AM EDT Office Visit [facility] [address] [place] [address] Rain Souza MD [address] [place] [address] documented as of this encounter Procedures Procedure Name Priority Date/Time Associated Diagnosis Comments CT ABDOMEN PELVIS W CON 05/12/2024 2:16 PM EST documented in this encounter Results * CT ABDOMEN PELVIS W CON (05/12/2024 2:16 PM EST) Anatomical Region Laterality Modality Other 05/12/2024 2:16 PM EST Narrative 05/12/2024 2:19 [place] [address] CT Scan Report Signed Patient: MITZI MACIAS MR#: [id number] : 1970 Acct:[id number] Age/Sex: 53 / F ADM Date: 05/12/24 Loc: CT Attending Dr: Sarah MAYERS Ordering Physician: Sarah Vega Date of Service: 05/12/24 Procedure(s): CT abdomen pelvis w con Accession Number(s): [id number] cc: Mckayla Blas NP [place] [address] Patient Name: MITZI MACIAS MRN: [id number] date: 1970 Sex: F Assigned Patient Location: CT Current Patient Location: Accession/Order Number: [id number] Exam Date: 05/12/2024 11:15 Report Date: 05/12/2024 [...] Signed By: 05/12/24 1419 DD/ 1416 TD/TT: Supervisor Water Treatment Plant: Procedure Note Radiology, Radiologist, MD - 05/12/2024 [place] [address] CT Scan Report Signed Patient: MITZI MACIAS LMR#: [id number] : 1970Acct:[id number] Age/Sex: 53 / FADM Date: 05/12/24 Loc: CT Attending Dr: Sarah MAYERS Ordering Physician: Sarah Vega Date of Service: 05/12/24 Procedure(s): CT abdomen pelvis w con Accession Number(s): [id number] cc: Mckayla Blas NP [address] [place] [address] Patient Name: MITZI MACIAS MRN: [id number] date: 1970 Sex: F Assigned Patient Location: CT Current Patient Location: Accession/Order Number: [id number] Exam Date: 05/12/2024 11:15 Report Date: 05/12/2024 [...] M.D. Signed By:05/12/24 1419 DD/ 1416 TD/TT: Supervisor Water Treatment Plant: Generic External Data Provider [facility] Final Result documented in this encounter Visit Diagnoses Not on filedocumented in this encounter Additional Health Concerns Assessment Noted Time PHQ-9 Depression Total Score: 3 01/17/20 24 10:08 AM EDT documented as of this encounter Care Teams Aircraft Layout Worker Relationship Specialty Start Date End Date Ty Amin MD [address] [place] [address] PCP - General Family Medicine 09/20/23 Mckayla Blas NP [address] [place] [address] PCP - [facility] 09/07/23 09/05/90 Mckayla Blas NP [address] [place] [address] Nurse Practitioner Family Medicine 09/20/23 documented as of this encounter
--- OUTSIDE RECORDS SUMMARY | 2025-01-07 09:06 | XMS_ITS | Encounter Summary ---
Author Organization [facility] Address [address] [place] [address] Care Team Providers Care Modeling Manager Name Role Phone Ty Amin MD Primary Care Provider [phone] Mckayla Blas NP Unavailable [phone] Mckayla Blas NP Unavailable [phone] Encounter Details Date Type Department Care Team (Late st Contact Info) Description 05/12/2024 Orders Only [facility] [address] [place] [address] Angela Cochran NP [address] [place] [address] Social History Tobacco Use Types [...] any clubs o r organizations such as pentecostal groups, unions, fraternal [...] Recorded Patient Health Questionnaire-2 Score 1 01/17/2024 [facility] - Occupational Stress [...] place to sleep or slept in a usp (including now)? No 07/10/2023 Comments Unknown Sex and Gender Information Value Date Recorded Sex Assigned at Not on file Legal Sex Female 6:50 PM EDT Gender Identity Not on file Sexual Orientation Not on file documented as of this encounter Plan of Treatment Upcoming Encounters Date Type Department Care Team (Late st Contact Info) Description 01/26/2025 6:00 PM EDT Office Visit [facility] [address] [place] [address] Mckayla Blas NP [address] [place] [address] 01/28/2025 10:50 AM EDT Office Visit [facility] [address] [place] [address] Rain Souza MD [address] [place] [address] documented as of this encounter Procedures Procedure [...] documented as of this encounter Care Teams Modeling Manager Relationship Specialty Start Date End Date Ty Amin MD [address] [place] [address] PCP - General Family Medicine 09/20/23 Mckayla Blas NP [address] [place] [address] PCP - [facility] 09/07/23 09/05/90 Mckayla Blas NP [address] [place] [address] Nurse Practitioner Family Medicine 09/20/23 documented as of this encounter
--- OUTSIDE RECORDS SUMMARY | 2025-01-07 09:06 | XMS_ITS | Encounter Summary ---
Author Organization [employer] [facility] Address [id number] [address] [place] [address] Care Team Providers Care Cashier Assistant Name Role Phone Mckayla Blas APRN-TAX SENIOR ASSOCIATE Primary Care Provider Encounter Details Date Type Department Care Team (Late st Contact Info) Description 05/03/2020 Telephone [facility] [address] [place] [address] [address]amaine Romero [address], [address] [id number] Social History Tobacco Use Types Packs/Day Years [...] on filedocumented in this encounter Care Teams Cashier Assistant Relationship Specialty Start Date End Date Mckayla Blas [place] [address] PCP - General Nurse Practitioner 09/25/18 documented as of this encounter
--- OUTSIDE RECORDS SUMMARY | 2025-01-07 09:06 | XMS_ITS | Encounter Summary ---
Author Organization [employer] Address [id number] [address] [place] [address] Care Team Providers Care Elevator Inspector Name Role Phone JuanjoseMckayla carcamo Krystal GUITAR PLAYER-ACADEMIC ASSOCIATE Primary Care Provider Encounter Details Date Type Department Care Team (Late st Contact Info) Description 05/31/2020 Orders Only [facility] [address] [place] [address] External, Scanning Provider Social History Tobacco Use [...] ECG ORDERABLES Final Result Performing Organization Address [facility] Co de Phone Number MANUALLY TRANSCRIBED [...] ECG ORDERABLES Final Result Performing Organization Address [facility] Co de Phone Number MANUALLY TRANSCRIBED RESULTS * Pulmonary function test (10/24/2018) us Scanning Provider External PFT ORDERABLES Final Result Performing Organization Address [facility] Co de Phone Number MANUALLY TRANSCRIBED RESULTS * Nuc stress Lexiscan/Exercise (12/12/2016) Anatomical Region Laterality Modality Chest N/A Nuclear Medicine us Scanning Provider External CV STRESS ORDERABLES Final Result documented in this encounter Visit Diagnoses Not on filedocumented in this encounter Care Teams Elevator Inspector Relationship Specialty Start Date End Date Mckayla Blas, GUITAR PLAYER-ACADEMIC ASSOCIATE [address] [place] [address] PCP - General Nurse Practitioner 09/25/18 documented as of this encounter
--- OUTSIDE RECORDS SUMMARY | 2025-01-07 09:06 | XMS_ITS | Clinical Summary ---
Author Organization [employer] tem Address [id number] [address] [place] [address] Care Team Providers Care Stone Layer Name Role Phone Wan Mckayla Krystal PEREZN-AUTOMOTIVE TEACHER Primary Care Provider Allergies No known active [...] Medical Devices Not on file Insurance MEDICAID [place] [employer] MEDICARE Care Teams Stone Layer Relationship Specialty Start Date End Date Mckayla Blas APRN-AUTOMOTIVE TEACHER [address] [place] [address] PCP - General Nurse Practitioner 09/25/18
--- OUTSIDE RECORDS SUMMARY | 2025-01-07 09:07 | XMS_ITS | Encounter Summary ---
Author Organization [facility] Address [address] [place] [address] Care Team Providers Care Cripple Chaser Name Role Phone Ty Amin MD Primary Care Provider [phone] Ty Amin MD Primary Care Provider [phone] Mckayla Blas FACILITATOR Unavailable [phone] Mckayla Blas FACILITATOR Unavailable [phone] Encounter Details Date Type Department Care Team (Late st Contact Info) Description 07/08/2023 Abstract [facility] [address] [place] [address] Mckayla Blas NP [address] [place] [address] Social History Tobacco Use Types Packs/Day Years [...] often do you attend chur ch or advent services? 1 to 4 times per year 07/10/2023 Do you belong to any clubs o r organizations such as confucianist groups, unions, fraternal or athletic groups, or [...] Recorded Patient Health Questionnaire-2 Score 2 07/10/2023 [facility] Occupat ional Health - Occupational Stress [...] place to sleep or slept in a residential (including now)? No 07/10/2023 Comments Unknown Sex [...] Visit [facility] [address] [place] [address] Mckayla Blas, SILVANO [address] [place] [address] 01/28/2025 10:50 AM EDT Office Visit [facility] [address] [place] [address] Rain Souza MD [address] [place] [address] documented as of this encounter Visit Diagnoses Not on filedocumented in this encounter Care Teams Cripple Chaser Relationship Specialty Start Date End Date Ty Amin MD PCP - General Family Medicine 01/05/23 09/19/23 Ty Amin MD [address] [place] [address] PCP - General Family Medicine 09/20/23 Mckayla Blas NP [address] [place] [address] PCP - [facility] 09/07/23 09/05/90 Mckayla Blas NP [address] [place] [address] Nurse Practitioner Family Medicine 09/20/23 documented as of this encounter
--- OUTSIDE RECORDS SUMMARY | 2025-01-07 09:07 | XMS_ITS | Encounter Summary ---
Author Organization [facility] Address [address] [place] [address] Care Team Providers Care Liaison Officer Name Role Phone Ty Amin MD Primary Care Provider [phone] Mckayla Blas PHYSICAL THER Unavailable [phone] Mckayla Blas PHYSICAL THER Unavailable [phone] Reason for Visit * Reason Comments Med Refill Encounter Details Date Type Department Care Team (Late st Contact Info) Description 11/27/2023 Refill [facility] [address] [place] [address] Mckayla Blas NP [address] [place] [address] Chronic obstructive pulmonary disease, unspecified (HCC) Social History Tobacco Use Types Packs/Day Years [...] How often do you attend chur or methodist services? 1 to 4 times per year 07/10/2023 Do you belong to any clubs o r organizations such as restorationist groups, unions, fraternal or athletic groups, or [...] Recorded Patient Health Questionnaire-2 Score 0 11/01/2023 [facility]at ional [facility] - [...] 01/26/2025 6:00 PM EDT [facility] [address] [place] [address] Mckayla Blas NP [address] [place] [address] 01/28/2025 10:50 AM EDT Office Visit [facility] [address] [place] [address] Rain Souza MD [address] [place] [address] documented as of this encounter Visit Diagnoses Diagnosis Chronic obstructive pulmonary disease, unspecified (HCC) Type 2 diabetes mellitus with hyperglycemia, with long-term current use of insulin (HCC) documented in this encounter Care Teams Liaison Officer Relationship Specialty Start Date End Date Ty Amin MD [address] [place] [address] PCP - General Family Medicine 09/20/23 Mckayla Blas NP [address] [place] [address] PCP - [facility] 09/07/23 09/05/90 Mckayla Blas NP [address] [place] [address] Nurse Practitioner Family Medicine 09/20/23 documented as of this encounter
--- OUTSIDE RECORDS SUMMARY | 2025-01-07 09:07 | XMS_ITS | Encounter Summary ---
Author Organization [facility] Address [address] [place] [address] Care Team Providers Care Felling Bucking Supervisor Name Role Phone Ty Amin MD Primary Care Provider [phone] Mckayla Blas ASSISTANT PROFESSOR OF COMMUNICATION Unavailable [phone] Mckayla Blas NP Unavailable [phone] Encounter Details Date Type Department Care Team (Late st Contact Info) Description 12/17/2023 Orders Only [facility] [address] [place] [address] Mckayla Blas NP [address] [place] [address] Social History Tobacco Use Types Packs/Day Years [...] often do you attend chur ch or gnosticist services? 1 to 4 times per year 07/10/2023 Do you belong to any clubs o r organizations such as cheondoism groups, unions, fraternal or athletic groups, or [...] Recorded Patient Health Questionnaire-2 Score 0 11/01/2023 [facility]at ional Health - Occupational [...] place to sleep or slept in a jail (including now)? No 07/10/2023 Comments Unknown Sex and Gender Information Value Date Recorded Sex Assigned at Not on file Legal Sex Female 6:50 PM EDT Gender Identity Not on file Sexual Orientation Not on file documented as of this encounter Plan of Treatment Upcoming Encounters Date Type Department Care Team (Late st Contact Info) Description 01/26/2025 6:00 PM EDT [facility] [address] [place] [address] Mckayla Blas NP [address] [place] [address] 01/28/2025 10:50 AM EDT Office Visit [facility] [address] [place] [address] Rain Souza MD [address] [place] [address] documented as of this encounter Procedures Procedure Name Priority Date/Time Associated Diagnosis Comments MM SCREENING MAMM WITH 3D SERENA - US AND ADDITIONAL Routine 12/14/2023 8:34 AM EDT documented in this encounter Results * MM SCREENING MAMM WITH 3D SERENA - US AND ADDITIONAL (12/14/2023 8:34 AM EDT) Anatomical Region Laterality Modality Radiographic Kalani ging Mckayla Blas ASSISTANT PROFESSOR OF COMMUNICATION IMG XR PROCEDURES Final Result documented in this encounter Visit Diagnoses Not on filedocumented in this encounter Care Teams Felling Bucking Supervisor Relationship Specialty Start Date End Date Ty Amin MD [address] [place] [address] PCP - General Family Medicine 09/20/23 Mckayla Blas NP [address] [place] [address] PCP - [place] 09/07/23 09/05/90 Mckayla Blas NP [address] [place] [address] Nurse Practitioner Family Medicine 09/20/23 documented as of this encounter
--- OUTSIDE RECORDS SUMMARY | 2025-01-07 09:07 | XMS_ITS | Encounter Summary ---
Author Organization [facility] Address [address] [place] [address] Care Team Providers Care Eyeletter Name Role Phone Ty Amin MD Primary Care Provider [phone] Mckayla Blas CARE ANALYST Unavailable [phone] Mckayla Blas NP Unavailable [phone] Encounter Details Date Type Department Care Team (Late st Contact Info) Description 12/14/2023 Clinisync Result Encounter [facility] External Department Unsolicited Mckayla Blas NP [address] [place] [address] Social History Tobacco Use Types Packs/Day Years [...] How often do you attend chur or yarsanism services? 1 to 4 times [...] Recorded Patient Health Questionnaire-2 Score 0 11/01/2023 [facility] of Occupat ional [facility] - Occupational Stress Questionnaire Answer Date Recorded [...] place to sleep or slept in a alf (including now)? No 07/10/2023 Comments Unknown Sex and Gender Information Value Date Recorded Sex Assigned at Not on file Legal Sex Female 6:50 PM EDT Gender Identity Not on file Sexual Orientation Not on file documented as of this encounter Plan of Treatment Upcoming Encounters Date Type Department Care Team (Late st Contact Info) Description 01/26/2025 6:00 PM EDT [facility] [address] [place] [address] Mckayla Blas NP [address] [place] [address] 01/28/2025 10:50 AM EDT Office Visit [facility] [address] [place] [address] Rain Souza MD [address] [place] [address] documented as of this encounter Procedures Procedure Name Priority Date/Time Associated Diagnosis Comments MM TOMOSYNTHESIS SCREENING BI 12/14/2023 11:21 AM EDT documented in this encounter Results * MM TOMOSYNTHESIS SCREENING BI (12/14/2023 11:21 AM EDT) Anatomical Region Laterality Modality Other 12/14/2023 11:2 1 AM EDT Narrative 12/14/2023 11:22 AM EDT The [address] [address] Mammography Report Signed Patient: MITZI MACIAS MR#: [id number] : 1970 Acct:[id number] Age/Sex: 53 / F ADM Date: 12/13/23 Loc: MAMMO Attending Dr: Mckayla Blas NP Ordering Physician: Mckayla Blas NP Results: Date of Service: 12/13/23 Follow Up: Procedure(s): MM tomosynthesis screening BI Accession Number(s): [id number] cc: Mckayla Blas NP Patient Name: MITZI MACIAS MR#: [id number] : 1970 Exam Date: 12/13/2023 Ordering Doctor: SAYDA Blas CNP RADIOLOGY REPORT PROCEDURE: MM TOMOSYNTHESIS SCREENING BI COMPARISON: MG MAMM SCREEN 3D ALEX CAD, 11/22/2022. MG MAMM SCREEN 3D ALEX CAD, 10/25/2021. MG MAMM SCREEN ALEX W CAD, 08/06/2020. MG MAMM LAEX SCRN W CAD DIG, 11/06/2014. INDICATIONS: Screening Calculator Name NCI Breast Cancer Risk Assessment Tool 5 Year Breast Cancer Risk 0.70% Lifetime Breast Cancer Risk 5.70% Personal Breast Cancer No Personal Ovarian Cancer No Treatments None Family Cancers Grandmother-paternal with ovarian cancer at age 80; Grandfather-paternal with unknown cancer at age 75. LOCATION: The [facility] BREAST COMPOSITION: The breasts are [...] Signed By: 12/14/23 1122 DD/ 1121 TD/TT: Sales Analyst: Procedure Note Radiology, Radiologist, MD - 12/14/2023 [place] [address] Mammography Report Signed Patient: MITZI MACIAS LMR#: [id number] : 1970Acct:[id number] Age/Sex: 53 / FADM Date: 12/13/23 Loc: MAMMO Attending Dr: Mckayla Blas NP Ordering Physician: Mckayla Blas NPResults: Date of Service: 12/13/23Follow Up: Procedure(s): MM tomosynthesis screening BI Accession Number(s): [id number] cc: Mckayla Blas NP Patient Name: MITZI MACIAS MR#: [id number] : 1970 Exam Date: 12/13/2023 Ordering Doctor: SAYDA Blas SYSTEMS MECHANIC RADIOLOGY REPORT PROCEDURE: MM TOMOSYNTHESIS SCREENING BI [...] unknown cancer at age 75. LOCATION: The [facility] BREAST COMPOSITION: The breasts are [...] M.D. Signed By:12/14/23 1122 DD/ 1121 TD/TT: Sales Analyst: us Mckayla Blas NP [facility] Final Result documented in this encounter Visit Diagnoses Not on filedocumented in this encounter Care Teams Eyeletter Relationship Specialty Start Date End Date Ty Amin MD [address] [place] [address] PCP - General Family Medicine 09/20/23 Mckayla Blas NP [address] [place] [address] PCP - [facility] 09/07/23 09/05/90 Mckayla Blas NP [address] [place] [address] Nurse Practitioner Family Medicine 09/20/23 documented as of this encounter
--- OUTSIDE RECORDS SUMMARY | 2025-01-07 09:07 | XMS_ITS | Patient Health Record ---
Author Organization [facility] [place] Address [address] [place] [address] Care Team Providers Care Paint Spray Inspector Name Role Phone Mckayla Blas CNP Primary Care Provider Unavail able Armando Yañez Unavailable [phone] Allergies No Known Allergies Results Component Value Reference Range Notes VC SEGMENTAL PRESSURES (Not yet reviewed by provider) Interpretation: Performing Lab: Notes/Report: Source Facility: [place] [address] Vein Report Signed Patient: MITZI MACIAS MR#: [id number] : 1970 Acct:[id number] Age/Sex: 53 / F ADM Date: 04/24/24 Loc: VC Attending Dr: Rafael Gongora Ordering Physician: Rafael Gonogra Date of Service: 04/24/24 Procedure(s): VC SEGMENTAL PRESSURES Accession Number(s): [id number] cc: Mckayla Blas HEATER HELPER FORGE; Rafael Gongora [place] [address] Patient Name: MITZI MACIAS MRN: [facility]:[id number] date: 1970 Sex: F Assigned Patient Location: VC Current Patient Location: VC Accession/Order Number: [id number] Exam Date: 04/24/2024 10:25 Report Date: 04/24/2024 11:20 At the request of: RAFAEL GONGORA Procedure: VC SEGMENTAL PRESSURES EXAM: VC SEGMENTAL PRESSURES HISTORY: R09. COMPARISON: None. FINDINGS: Segmental pressures presented as follows (right, left) in mmHg. Brachial: 169, 166 Upper thigh: Not obtained Lower thigh: 129, 119 Calf: 124, 106 DPA: 108, 105 CONSTRUCTION AND MAINTENANCE INSPECTOR: 100, 91 1st Toe: 124, 142 ISABELLE: [...] By: Maryanne Gardner M.D. Signed By: 04/24/24 112 DD/ 112 TD/TT: Foreign Exchange Trader: [place] [address] Vein Report Signed Patient: BARBY MACIAS MR#: [id number] : 1970 Acct:[id number] Age/Sex: 53 / F ADM Date: 04/24/24 Loc: VC Attending Dr: Nanci Gongora Ordering Physician: Rafael Gongora Date of Service: 04/24/24 Procedure(s): VC SEGMENTAL PRESSURES Accession Number(s): [id number] cc: Mckayla Blas HEATER HELPER FORGE ; Rafael Gongora [place] [id number] Patient Name: MITZI MACIAS MRN: [id number] date: 1970 Sex: F Assigned Patient Location: VC Current Patient Location: VC Accession/Order Numb er: [id number] Exam Date: 10:25 Report Date: 04/24/2024 11:20 At the request of: RAFAEL GONGORA Procedure: VC SEGMEN KARY PRESSURES EXAM: VC SEGMENTAL PRESSURES HISTORY: R09.89 COMPARISON: None. FINDINGS: Segmental pressures presented as follows (right, left) in mmHg. Brachial: 169, 166 Upper thigh: Not obtained Lower thigh: 129, 119 Calf: 124, 106 DPA: 108, 105 CONSTRUCTION AND MAINTENANCE INSPECTOR: 100, 91 1st Toe: 124, 142 ISABELLE: [...] Dictated By: Jacobo Gardner M.D. Signed By: 04/24/243 DD/ 19 TD/TT: Foreign Exchange Trader: PROF OLIVIER 8 ([facility] ) (Not yet reviewed by provider) Interpretation: Performing Lab: Notes/Report: [facility] , Sodium 142 136-145 mmol/L Potassium [...] 9.0 8.5-10.1 mg/dL Performing Lab: see note ML - The [facility] LB CBC AUTO DIFF (Not yet revie wed by provider) Interpretation: Performing Lab: Notes/Report: [facility] , White Blood Count 12.8 4.0-11.0 [...] 0.00-0.03 10 3/uL Performing Lab: see note ML - The [facility] LB Reason For Referral No Information Medications Medication [...] Days Active Vitamin D (Ergocalciferol) 1.25 MG (99489 UT) Oral for 90 Days Activ e Breztri Aerosphere 160-9-4.8 MCG/ACT Inhalation for 30 Days Active Simvastatin 10 MG Oral for 90 Days Active Roflumilast 250 MCG Oral for 28 Days Active Immunizations Vaccine Route Administration Date Status Comme nts Flu, Fluzone (89421) 6-35mo, multi-dose vial (9196-3633) Unknown 05/18/2023 Administered Pneumococcal (Pneumovax 23) Unknown [...] ulcer due to type 2 diabetes mellitus (3935905608278) Type 2 diabetes mellitus with foot ulcer (E11.621) Active confirmed Problem 745973465 Morbid (severe) obesity due to excess calories (E66.01) Active confirmed Problem Venous ulcer of lower extremity due to chronic peripheral venous hypertension (806185647249748) Chronic venous hypertension (idiopathic) with ulcer of left lower extremity (I87.312) Active confirmed Problem Chronic non-pressure ulcer of calf extending to fat level (0917397672483261 1) Non-pressure chronic ulcer of other part of right lower leg with fat layer exposed (L97.812) Active confirmed Problem Chronic ulcer of skin of lower leg (disorder) (8024498134979051 4) Non-pressure chronic ulcer of other part of left lower leg limited to breakdown of skin (L97.821) Active confirmed Problem 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 exposed (L97.822) Active confirmed Problem Long-term current use of inhaled steroid (209730495) terminal worker (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 inhaled steroids (Z79.51) Active confirmed Problem COPD - Chronic obstructive pulmonary disease (06400586) COPD (chronic obstructive pulmonary disease) (J44.9) Active confirmed Problem Hypertension (01122584) HTN (hypertension) (I10) Active confirmed Problem Obstructive sleep apnea syndrome (93588352) DANIEL (obstructive sleep apnea) (G47.33) Active confirmed Problem Lumbar radiculopathy (179400390) Lumbar radiculopathy (M54.16) Active confirmed Problem Diabetes mellitus type 2 (disorder) (17678595) DM2 (diabetes mellitus, type 2) (E11.9) Active confirmed Problem 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) Cigarette nicotine dependence with nicotine-induced disorder (F17.219) Active confirmed Problem Leukocytosis (264064846) Leukocytosis (D72.829) Active confirmed Problem Acute exacerbation of chronic obstructive airways disease (148559779) COPD with exacerbation (J44.1) Active confirmed Problem 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 (I87.313) Active confirmed Problem Non-prs chr ulce r oth prt l low leg limited to brkdwn skin (L97.821) Active confirmed Problem Stasis dermatitis co-occurrent with venous ulcer of right lower extremity due to chronic peripheral venous hypertension (927008071644608) Idiopathic chronic venous hypertension of right lower extremity with ulcer (I87.311) Active confirmed Problem Chronic venous hypertension with ulcer and inflammation involving left side (I87.332) Active confirmed Problem Abnormal arterial blood gas (199721300) Elevated carbon dioxide level (R79.81) Active confirmed Problem Skin ulcer of right knee, limited to breakdown of skin (L97.811) Active confirmed Encounters Encounter Location Date Provider Diagnosis [facility] [address] [place] [address] 04/07/2024 Armando Yañez [facility] [address] [place] [address] 12/02/2024 Armando De Leon Plan Of Treatment Pending Test Test Name Order Date CBC AUTO DIFF 08/27/2024 PROF CHEM 8 (BAS METB) 08/27/2024 VC SEGMENTAL PRESSURES 04/24/2024 Insurance Providers Payer Name Payer Address Payer Phone Subscriber Number Group Number Insured Name Patient Relationship to Insured Coverage Start Date Coverage End Date [facility] [employer]IC[employer] [address] [place] [phone] [id number] Mitzi Macias Self - patient is the [...] (hyperlipidemia) E78.5 Elevated carbon dioxide level R79.81 USP (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 inhaled stero ids Z79.51 Anxiety and depression F41.8 GERD (gastroesophageal reflux disease) K 21.9 Surgical History Surgery Date(Month/Year) hysterectomy cholecystectomy toe surgery Hospitalization History Reason Date(Month/Year) Pneumonia -[facility] 08/31/2023 COPD Exacerbation-[facility] 09/10/2023
--- NOTE | 2025-01-07 09:21 | PM.CN ---
Consult Note: HPI Data of Consult Patient: known to practice within the last 3 years Requesting Physician: Angela Cochran NP Primary Care Provider: Mckayla Blas NP Consult Narrative Reason for consult: f/u Narrative: Mitzi Macias a pleasant 54 year old female presents for evaluation and management of low back and right hip pain. Today pain /10. Describes it as an aching pain in low back, sharp in right hip, and right leg pain increased with standing, walking, transitioning, stairs. Tolerating current medication regimen well without side effects. Patient has a longstanding hx of low back and leg pain unresponsive to PT/HEP greater than 6 weeks, tylenol, ibuprofen/motrin/aleve, heat/ice, and tylenol. continues to have moderate to severe back and RLE pain. Pt is working on weight loss and smoking cessation. following with wound care for wound of RLE that is not progressing. cc:: CC: Angela Cochran NP Review of Systems ROS Status of ROS 10 or more systems reviewed and unremarkable except as noted in history and below Musculoskeletal Reports: back pain, extremity pain and joint pain PFSH [facility] Medical History COPD exacerbation �J44.1 - Chronic obstructive pulmonary disease with (acute) exacerbation (ICD-10) Influenza A �J10.1 - Influenza due to other identified influenza virus with other respiratory manifestations (ICD-10) Hypoxia �R09.02 - Hypoxemia (ICD-10) Hypertension �I10 - Essential (primary) hypertension (ICD-10) Obesity �E66.9 - Obesity, unspecified (ICD-10) Amputation toe �S98.139A - Complete traumatic amputation of one unspecified lesser toe, initial encounter (ICD-10) Neuropathy �G62.9 - Polyneuropathy, unspecified (ICD-10) Acid reflux �K21.9 - Gastro-esophageal reflux disease without esophagitis (ICD-10) Diabetes �E11.9 - Type 2 diabetes mellitus without complications (ICD-10) COPD (chronic obstructive pulmonary disease) �J44.9 - Chronic obstructive pulmonary disease, unspecified (ICD-10) Asthma �J45.909 - Unspecified asthma, uncomplicated (ICD-10) High cholesterol �E78.00 - Pure hypercholesterolemia, unspecified (ICD-10) Surgical History History of hammertoe correction �Z98.890 - Other specified postprocedural states (ICD-10) �Z87.39 - Personal history of other diseases of the musculoskeletal system and connective tissue (ICD-10) Hx of cholecystectomy �Z90.49 - Acquired absence of other specified parts of digestive tract (ICD-10) History of hysterectomy �Z90.710 - Acquired absence of both cervix and uterus (ICD-10) Social History (Updated 12/04/24 @ 22:27 by Comfort Grimaldo RN) Within the past year, how often did you have a drink containing alcohol: never Within the past year, how often did you have six or more drinks on one occasion: never Score interpretation: A score less than 3 is consistent with normal alcohol consumption. Smoking status: Current some day smoker Second hand tobacco smoke exposure: Yes Non-prescribed substance use: denies use Known occupational exposures/hazards: No Highest level of school completed/degree received: Associate degree: occupational, technical, vocational program Are you now , , , , never or living with a partner: Little interest or pleasure in doing things: not at all Feeling down, depressed, or hopeless: not at all Feel stressed/tense/nervous/anxious/difficulty sleeping: not at all Meds Home Medications and Allergies Home Medications �Medication �Instructions �Recorded �Confirmed �Type acetaminophen 500 mg capsule 1,000 mg PO Q6H PRN fever or pain 03/20/23 12/04/24 History amitriptyline 25 mg tablet 25 mg PO DAILY 03/20/23 12/04/24 History aspirin 81 mg tablet,delayed 81 mg PO DAILY 03/20/23 12/04/24 History release (Adult Aspirin Regimen) budesonide-formoterol HFA 160 2 inh inhalation BID 03/20/23 12/04/24 History mcg-4.5 mcg/actuation aerosol inhaler (Symbicort) furosemide 40 mg tablet 40 mg PO DAILY 03/20/23 12/04/24 History insulin aspart U-100 100 unit/mL 1 sliding scale dose subcut 03/20/23 12/04/24 History (3 mL) subcutaneous pen (Novolog USEASDIRECTD FlexPen U-100 Insulin aspart) insulin glargine 100 unit/mL 58 unit subcut BID 03/20/23 12/04/24 History subcutaneous solution (Lantus U-100 Insulin) lisinopril 20 mg tablet 20 mg PO DAILY 03/20/23 12/04/24 History omeprazole 20 mg capsule,delayed 20 mg PO DAILY 03/20/23 12/04/24 History release pregabalin 300 mg capsule 300 mg PO Q12H 03/20/23 12/04/24 History duloxetine 60 mg capsule,delayed 60 mg PO BID #60 caps 04/05/23 12/04/24 Rx release dapagliflozin propanediol 10 mg 10 mg PO .QD 09/10/23 12/04/24 History tablet ergocalciferol (vitamin D2) 1,250 50,000 unit PO QWEEK 09/10/23 12/04/24 History mcg (50,000 unit) capsule potassium chloride 10 mEq 10 meq PO .QD 09/10/23 12/04/24 History capsule,extended release simvastatin 10 mg tablet 10 mg PO QAM 09/10/23 12/04/24 History hydralazine 25 mg tablet 25 mg PO BID #60 tabs 09/13/23 12/04/24 Rx oseltamivir 75 mg capsule 75 mg PO BID #6 caps 09/13/23 12/04/24 Rx baclofen 10 mg tablet 10 mg PO TID 06/24/24 12/04/24 History hydrocodone 5 mg-acetaminophen 325 1 tab PO TID PRN pain #80 tabs 06/30/24 12/04/24 Rx mg tablet hydrocodone 5 mg-acetaminophen 325 See Rx Instructions .Route 09/09/24 12/04/24 Rx mg tablet .COMPLEX PRN pain #80 tabs ammonium lactate 12 % lotion 1 applic topical DAILY 12/04/24 12/05/24 History amoxicillin 875 mg-potassium 1 tab PO Q12H #20 tabs 12/05/24 Rx clavulanate 125 mg tablet prednisone 10 mg tablet 40 mg (4 x 10 mg) PO DAILY #32 tabs 12/05/24 Rx hydrocodone 5 mg-acetaminophen 325 See Rx Instructions .Route 12/11/24 Rx mg tablet .COMPLEX PRN pain #80 tabs pregabalin 150 mg capsule (Lyrica) 150 mg PO DAILY #30 caps 12/11/24 Rx Allergies Allergy/AdvReac Type Severity Reaction Status Date / Time No Known Drug Allergies Allergy Verified 06/10/24 08:21 Exam Constitutional Documenting provider has reviewed patient's vital signs: yes Common normals: no apparent distress, oriented x3, healthy appearing, alert and well nourished General appearance: cooperative HENMT Common normals: normocephalic, hearing grossly normal bilaterally and moist oral mucous membranes Head and scalp: normocephalic Eye Common normals: PERRL Pupil: PERRL Neck & C-Spine Common normals: full ROM General: normal visual inspection Chest Common normals: inspection of chest normal Respiratory Common normals: normal respiratory effort, no retractions and no use of accessory muscles Back & Pelvis Lumbar spine/lower back: ROM limited, pain with ROM and straight leg raise positive right Other: right L4,5,S1 decreased sensation strength 4/5 in RLE and 5/5 in LLE Extremity Right lower extremity: hip joint Other: increased pain with internal/external rotation Neuro Common normals: oriented x3, CN's II-XII intact bilaterally, moves all extremities, no focal motor deficits, no sensory deficits noted and deep tendon reflexes 2+ bilaterally Sensorium/orientation: alert Gait (neuro): assistive device used (wheelchair) Motor exam: no movement abnormalities noted Psych Common normals: mental status grossly normal, thought process normal, cooperative, affect normal, speech normal and activity/motor behavior normal Speech: normal speech Thought process: normal thought process Results Additional Findings Additional findings: If on a controlled substance or opioids, I have checked an [place]AR[place] report on this patient and there are no aberrancies noted in the prescribing history.��If on a controlled substance or opioid a drug screen was completed and reviewed within the last year, and if there has not been a drug screen completed we ordered one today to monitor higher risk, state monitored pain medication use. As part of providing excellent, safe, comprehensive care, the following was completed at our patient's visit: 1. A medication reconciliation and review to ensure accurate knowledge of current/active medications, including asking our patients to inform us about any [id number]-[id number] medications or herbal remedies/nutritional supplements/alternative remedies. 2. A review to specifically ensure our patients have had annual screening for screening for depression, screening for tobacco use, and screening for unhealthy alcohol use. For concerning screenings had a discussion with the patient, provided patient education, and recommended follow-up with primary care provider when appropriate. If patient noted with a risk of falling, they received education on strength, gait, and balance training to prevent future risk of falling. Portions of this note may have been carried over from the previous visit and updated as appropriate. Please note this office utilizes paper charting in addition to the electronic medical record. A list of current medications, vitals, and PMH is available there as the clinical staff outside of myself do not have access to [employer] charting during the clinic day operations. As part of providing quality comprehensive care the current medications, vitals, and PMH were reviewed in the paper chart. Assessment and Plan Assessment and Plan (1) Lumbar stenosis with neurogenic claudication: (2) Lumbar degenerative disc disease: (3) Lumbar radiculopathy: (4) Chronic pain syndrome: (5) Chronic prescription opiate use: Assessment and Plan: I feel these medications are improving the patient's quality of life and allow them to tolerate activities of daily living as well as participate in recreational activity.� The patient does not report intolerable side effects. The patient is NOT opioid naive and non-pharmacologic and non-opioid treatment has failed to significantly relieve the patient's pain and improve functionality. The patient has a diagnosis that is related to a somatic or visceral pain etiology. � �� I reviewed with the patient the potential risks and side effects with the use of� opioid medications including but not limited to respiratory depression,� sedation, and even . Within the last 12 months I have verified the patient has access to naloxone should� these effects occur. The patient was advised to let� their family know they had Naloxone in case they would need to administer� the medication. I advised the patient to avoid the use of any other� sedation substances including alcohol, THC, and benzodiazepines while� taking opioid medications due to the risk of compounding side effects and� detrimental outcomes. within the last 12 months I have reviewed the NEEDLE POLISHER, pain treatment agreement and urine drug screen.� �� A drug screen was completed within the last year, and no aberrancies were noted regarding their use of controlled substances. The patient understands they are subject to the terms and conditions of the pain contract that they have signed. � �� I have checked an OARRS report on this patient today and there are no aberrancies noted in the prescribing history.� (6) Osteoarthritis of hip: Qualifiers: Laterality: unspecified laterality Osteoarthritis type: unspecified Qualified Code(s): M16.9 - Osteoarthritis of hip, unspecified (7) Chronic right hip pain: Plan continue f/u with wound care, considering skin graft continue pregabalin to 300mg AM, 150mg mid day, 300mg HS. risks vs benefits reviewed. does find improvement in radicular pain with increased dose without side effects continue baclofen 5-10mg TID PRN pain/spasms continue hydrocodone-acetaminophen 5-325mg TID PRN moderate to severe pain 80 tabs month continue diclofenac 75mg BID PRN pain current medication regimen reviewed with pt, risks vs benefits reviewed. defer NS consultation due to risks, current infection and obesity f/u 6 weeks to consider lumbar TAMMIE
== END 2025-01-07 09:05 | disposition home or self-care (01) ==
PROVIDERS: PCP Nurse Practitioner; Visit Provider Nurse Practitioner
DX: M48.062 Spinal stenosis, lumbar region with neurogenic claudication (principal); M51.369 Other intervertebral disc degeneration, lumbar region without mention of lumbar back pain or lower extremity pain; M54.16 Radiculopathy, lumbar region; G89.4 Chronic pain syndrome; Z79.891 Long term (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 opiate analgesic; M16.9 Osteoarthritis of hip, unspecified; M25.551 Pain in right hip
CPT/HCPCS: G0463

== ENCOUNTER 2025-01-14 14:56 | Outpatient (OUT) | payer MEDICARE, SELFPAY ==
--- OUTSIDE RECORDS SUMMARY | 2024-04-07 05:07 | XMS_ITS ---
Author Organization [facility] in [place] Address [address] [place] [address] Care Team Providers Care Critical Care Physician Assistant Name Role Phone Mckayla Blas CNP Primary Care Provider Armando Limon Unavailable [phone] REASON FOR VISIT Varenicline Tartrate (Starter) Refill Request Encounters Encounter Location Date Provider Diagnosis Pulmonary Medicine [place] [address] [place] [address] 04/07/2024 Armando Yañez Plan Of Treatment No Information Progress Notes * Mitzi MACIAS LDOB:[birth year] (53 yo F)Acc No.[id number]:04/07/2024 Patient: iMtzi COX :1970 A ge:53 Y S ex:Female Address:[address] [place] [phone] * true * Date: Generated for Tiffanyi terrence/Faleigh/eTransmitting on: 0 01/14/2025 03:00 PM EDT
--- OUTSIDE RECORDS SUMMARY | 2024-12-02 05:30 | XMS_ITS ---
Author Organization The [facility] in [place] Address [address] [place] [address] Care Team Providers Care French Weaver Name Role Phone Mckayla Blas CNP Primary Care Provider Armando Limon Unavailable [phone] REASON FOR VISIT 1YEAR-COPD Encounters Encounter Location Date Provider Diagnosis Pulmonary Medicine [place] [address] [place] [address] 12/02/2024 Armando Yañez Plan Of Treatment No Information Progress Notes * Mitzi MACIAS LDOB:[birth year] (54 yo F)Acc No.[id number]:12/02/2024 UNLOCKED PROGRESS NOTE Follow Up Patient: Mitzi COX Provider: Tray Yañez DO :1970 A ge:54 Y S ex:Female Date:12/02/2024 Address:[address] [place], [place] [address] Pcp:Mckayla Blas CNP Subjective: * Chief Complaints: * 1 . 1YEAR-COPD. * Medical History: Objective: * Vitals: Assessment: Plan: * Treatment: * * Electronic signature of Radha Yañez DO on 01/14/2025 at 03:01 PM EDT Sign off status: Pending Visit Status: N /S N/C (No Show/No Charge) * Provider: Tray Yañez DO Date: 0 12/02/2024 Generated for Vanessa ocampo/Luis/eTransmitting on: 0 01/14/2025 03:01 PM EDT
--- OUTSIDE RECORDS SUMMARY | 2024-12-02 05:47 | XMS_ITS ---
Author Organization The [facility] in [place] Address [address] [place] [address] Care Team Providers Care Editor At Large Name Role Phone Mckayla Blas CNP Primary Care Provider Armando Limon [phone] REASON FOR VISIT No Show Appointment Encounters Encounter Location Date Provider Diagnosis Pulmonary Medicine [place] [address] [place] [address] 12/02/2024 Armando Yañez Plan Of Treatment No Information Progress Notes * MACIASMitzi CARPIO LDOB:[birth year] (54 yo F)Acc No.[id number]:12/02/2024 Patient: Mitzi COX :1970 A ge:54 Y S ex:Female Address:[address] [place] [address] * true * Date: Generated for Vanessa ocampo/Luis/eTransmitting on: 0 01/14/2025 03:01 PM EDT
--- OUTSIDE RECORDS SUMMARY | 2025-01-06 11:20 | XMS_ITS | Encounter Summary ---
Author Organization [facility] Address [address] [place] [address] Care Team Providers Care Supervisor Filter Assembly Name Role Phone Mckayla Blas MD Primary Care Provider [phone] Reason for Referral * Imaging (Routine) - Pending Review Specialty Diagnoses / Procedures Referred By Tarun t Referred To Contact Cardiology Diagnoses Chronic diastolic heart failure (CMS/HCC) Procedures Transthoracic echo (TTE) complete Karma Chatterjee CNP [address] [place] [address] Phone: tel: fax: Referral ID Status Reason Start Date Expiration Date Visits Requested Visits Authorized [id number] Pending Review Perform Procedure 01/06/2025 01/06/2026 1 1 Reason for Visit * Reason Comments Congestive Heart Failure Hypertension Hyperlipidemia Encounter Details Date Type Department Care Team (Late st Contact Info) Description 01/06/2025 11:20 AM EDT Office Visit [facility] Heart at [facility] [address] [place] [address] Karma Chatterjee CNP [address] [place] [address] Chronic diastolic heart failure (CMS/HCC) (Primary Dx); Bilateral lower extremity edema; Primary hypertension; Mixed hyperlipidemia; Venous insufficiency; Class 3 severe obesity due to excess calories with serious comorbidity and body mass index (BMI) of 50.0 to 59.9 in adult; Type 2 diabetes mellitus with complication, with long-term current use of insulin ([facility]); Obstructive sleep apnea; [...] original note were not included. Cardiovascular Medicine [facility] SUBJECTIVE Chief Complaint Patient presents with Congestive Heart Failure Hypertension Hyperlipidemia Mitzi Macias is a 54 y.o. female here for follow-up. PMHx: HFpEF, HTN, HLD, DM, longstanding heavy smoker, COPD, DANIEL, morbid obesity HPI 12/05/2024 Since last seen she was admitted to [facility] for AMS. 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 She will be seeing a new griddle cook and I advised she discuss mask options [...] Cardiomegaly documented in this encounter Care Teams Supervisor Filter Assembly Relationship Specialty Start Date End Date Mckayla Blas MD [facility] [address] [place] [address] PCP - General Nurse Practitioner 11/13/23 documented as of this encounter
--- OUTSIDE RECORDS SUMMARY | 2025-01-14 15:02 | XMS_ITS | Encounter Summary ---
Author Organization [facility] tem Address [facility] [place] [id number] [address] [place] [address] Care Team Providers Care Rn Med Surg Name Role Phone JuanjoseMckayla carcamo Krystal PEREZN-IN STORE MARKETER Primary Care Provider Encounter Details Date Type Department Care Team (Late st Contact Info) Description 05/31/2020 Orders Only [facility] [address] [place] [address] External, Scanning Provider Social History Tobacco Use [...] on filedocumented in this encounter Care Teams Rn Med Surg Relationship Specialty Start Date End Date Mckayla Blas, LINE WORKER-IN STORE MARKETER [address] [place] [address] PCP - General Nurse Practitioner 09/25/18 documented as of this encounter
--- OUTSIDE RECORDS SUMMARY | 2025-01-14 15:02 | XMS_ITS | Encounter Summary ---
Author Organization [facility] Address [address] [place] [address] Care Team Providers Care Equipment Planner Name Role Phone Ty Amin MD Primary Care Provider [phone] Mckayla Blas TECHNICAL SERVICES LIBRARIAN Unavailable [phone] Mckayla Blas TECHNICAL SERVICES LIBRARIAN Unavailable [phone] Encounter Details Date Type Department Care Team (Late st Contact Info) Description 01/07/2025 Abstract [facility] [address] [place] [place] [phone] Mckayla Blas NP [address] [place] [address] Social History Tobacco Use Types [...] often do you attend chur ch or hindu services? More than 4 times per year 08/26/2024 Do you belong to any clubs o r organizations such as hinduism groups, unions, fraternal or athletic groups, or [...] Recorded Patient Health Questionnaire-2 Score 1 01/17/2024 [facility] - Occupational [...] place to sleep or slept in a detention (including now)? No 07/10/2023 Housing Stability Vital Sign Answer Wilmer e Recorded In the last 12 months, was t here a time when you were not able to pay the mortgage or rent on time? No 08/26/2024 Number of Times Moved in the Last Year Not on fi le 08/26/2024 At any time in the past 12 m [facility], were you homeless or living in a detention (including now)? No 08/26/2024 Comments Unknown Sex [...] Visit [facility] [address] [place] [address] Mckayla Blas NP [address] [place] [address] 01/28/2025 10:50 AM EDT Office Visit [facility] [address] [place] [address] Rain Souza MD [address] [place] [address] documented as of this encounter Visit Diagnoses Not on filedocumented in this encounter Additional Health Concerns Assessment Noted Time PHQ-9 Depression Total Score: 3 01/17/20 24 10:08 AM EDT documented as of this encounter Care Teams Equipment Planner Relationship Specialty Start Date End Date Ty Amin MD [address] [place] [place] [address] PCP - General Family Medicine 09/20/23 Mckayla Blas NP [address] [place] [address] PCP - [facility] 09/07/23 01/11/25 Mckayla Blas NP [address] [place] [address] Nurse Practitioner Family Medicine 09/20/23 documented as of this encounter
--- OUTSIDE RECORDS SUMMARY | 2025-01-14 15:02 | XMS_ITS | Encounter Summary ---
Author Organization [facility] Address [address] [place] [address] Care Team Providers Care Chief Specialist Leed Name Role Phone Ty Amin MD Primary Care Provider [phone] Mckayla Blas NP Unavailable [phone] Mckayla Blas NP Unavailable [phone] Encounter Details Date Type Department Care Team (Late st Contact Info) Description 05/12/2024 Orders Only [facility] [address] [place] [phone] Angela Cochran NP [address] [place] [address] Social History Tobacco Use Types [...] often do you attend chur ch or mandaeism services? 1 to 4 times per year [...] Patient Health Questionnaire-2 Score 1 01/17/2024 [facility] - Occupational Stress Questionnaire Answer Date [...] place to sleep or slept in a fdc (including now)? No 07/10/2023 Comments Unknown Sex and Gender Information Value Date Recorded Sex Assigned at Not on file Legal Sex Female 6:50 PM EDT Gender Identity Not on file Sexual Orientation Not on file documented as of this encounter Plan of Treatment Upcoming Encounters Date Type Department Care Team (Late st Contact Info) Description 01/26/2025 6:00 PM EDT Office Visit [facility] [address] [place] [address] Mckayla Blas NP [address] [place] [address] 01/28/2025 10:50 AM EDT Office Visit [facility] [address] [place] [phone] Rain Souza MD [address] [place] [address] documented as of this encounter Procedures Procedure [...] documented as of this encounter Care Teams Chief Specialist Leed Relationship Specialty Start Date End Date Ty Amin MD [address] [place] [address] PCP - General Family Medicine 09/20/23 Mckayla Blas NP [address] [place] [address] PCP - [facility] 09/07/23 01/11/25 Mckayla Blas NP [address] [place] [address] Nurse Practitioner Family Medicine 09/20/23 documented as of this encounter
--- OUTSIDE RECORDS SUMMARY | 2025-01-14 15:02 | XMS_ITS | Encounter Summary ---
Author Organization [facility] Address [address] [place] [address] Care Team Providers Care Life Science Teacher Name Role Phone Ty Amin MD Primary Care Provider [phone] Ty Amin MD Primary Care Provider [phone] Mckayla Blas CUSTOMER MARKETING INTERN Unavailable [phone] Mckayla Blas CUSTOMER MARKETING INTERN Unavailable [phone] Encounter Details Date Type Department Care Team (Late st Contact Info) Description 08/31/2023 Clinisync Result Encounter [facility] External Department Unsolicited Andra Alcala PA [address] [place] [address] [address] [place], [place] [phone] Social History Tobacco Use Types Packs/Day Years [...] often do you attend chur ch or christian services? 1 to 4 times per year 07/10/2023 Do you belong to any clubs o r organizations such as mosque groups, unions, fraternal or athletic groups, or [...] Recorded Patient Health Questionnaire-2 Score 2 07/10/2023 [facility] - Occupational Stress Questionnaire [...] 01/26/2025 6:00 PM EDT [facility] [address] [place] [address] Mckayla Blas NP [address] [place] [address] 01/28/2025 10:50 AM EDT Office Visit [facility] [address] [place] [address] Rain Souza MD [address] [place] [address] documented as of this encounter Procedures Procedure [...] Provider LAB BLOOD ORDERAB LES Final Result * BLOOD CULTURE 1 (09/10/2023 2:05 PM EST) BLOOD CULTURE 1 Blood Culture 1 NG5D NO GROWTH AT 5 DAYS.^NO GROWTH AT 5 DAYS. [facility] 09/10/2023 2:05 PM EST 09/10/2023 2:28 PM EST Narrative [facility] - 09/16/2023 1:07 PM EDT Generic External Data Provider LAB BLOOD ORDERAB LES Final Result * ECG 12-LEAD (08/31/2023 6:08 PM EST) Anatomical Region Laterality Modality Other 08/31/2023 6:08 PM EST Narrative 09/02/2023 7:32 [place] [address] Electrocardiograph Report Signed Patient: MITZI MACIAS MR#: [id number] : 1970 Acct:[id number] Age/Sex: 53 / F ADM Date: 08/31/23 Loc: [place] 214-[address]: Jacqueline Becerra D.O. Ordering Physician: Andra Alcala Date of Service: 08/31/23 Procedure(s): ECG 12 lead Accession Number(s): [id number] cc: [facility] Test Date: 2023-08-31 Pat Name: MITZI MACIAS Department: Room: - Gender: Female Bioinformatics Software Engineer: : 1970 Requested By: MCKAYLA BLAS Order Number: [id number] Reading MD: LAURI DIOR Measurements Intervals [place] Rate: 102 P: 67 IL: 144 QRS: 52 QRSD: 72 T: 49 QT: 326 QTc: 385 Interpretive Statements 1120 Sinus tachycardia 4068 Nonspecific Twave abnormality 8102 Low QRS voltage in chest leads 9140 abnormal rhythm ECG Compared to ECG 12/04/2022 21:27:48 Electronically Signed On 09-02-2023 7:31:43 EST by LAURI DIOR Dictated By: Lauri Dior D.O. Signed By: 09/02/23 0732 DD/ 180 TD/TT: Director Machine: Procedure Note Radiology, Radiologist, MD - 09/02/2023 [place] [address] Electrocardiograph Report Signed Patient: MITZI MACIAS LMR#: [id number] : 1970Acct:[id number] Age/Sex: 53 / FADM Date: 08/31/23 Loc: [place] 214-[address]: Jacqueline Becerra D.O. Ordering Physician: Andra Alcala Date of Service: 08/31/23 Procedure(s): ECG 12 lead Accession Number(s): [id number] cc: [facility] Test Date: 2023-08-31 Pat Name: MITZI MACIAS Department: Room: - Gender: Female Bioinformatics Software Engineer: : 1970 Requested By: MCKAYLA BLAS Order Number: [id number] Reading MD: LAURI DIOR Measurements Intervals [place] Rate: 102 P: 67 IL: 144 QRS: 52 QRSD: 72 T: 49 QT: 326 QTc: 385 Interpretive Statements 1120 Sinus tachycardia 4068 Nonspecific Twave abnormality 8102 Low QRS voltage in chest leads 9140 abnormal rhythm ECG Compared to ECG 12/04/2022 21:27:48 Electronically Signed On 09-02-2023 7:31:43 EST by LAURI DIOR Dictated By: Lauri Dior D.O. Signed By:09/02/23 0732 DD/ 1808 TD/TT: Director Machine: us Andra [facility] Final Result documented in this encounter Visit Diagnoses Not on filedocumented in this encounter Care Teams Life Science Teacher Relationship Specialty Start Date End Date Ty Amin MD PCP - General Family Medicine 01/05/23 09/19/23 Ty Amin MD [address] [place] [address] PCP - General Family Medicine 09/20/23 Mckayla Blas NP [address] [place] [address] PCP - [facility] 09/07/23 01/11/25 Mckayla Blas NP [address] [place] [address] Nurse Practitioner Family Medicine 09/20/23 documented as of this encounter
--- OUTSIDE RECORDS SUMMARY | 2025-01-14 15:02 | XMS_ITS | Encounter Summary ---
Author Organization [facility] [place] [address] [place] [address] Care Team Providers Care Senior C Developer Name Role Phone JuanjoseMckayla carcamo Krystal RN RADIATION ONCOLOGY-REHABILITATION THERAPIST Primary Care Provider Encounter Details Date Type Department Care Team (Late st Contact Info) Description 06/11/2020 Orders Only [facility] [address] [place] [phone] External, Scanning Provider Social History Tobacco Use [...] on filedocumented in this encounter Care Teams Senior C Developer Relationship Specialty Start Date End Date Mckayla Blas, RN RADIATION ONCOLOGY-REHABILITATION THERAPIST [address] [place] [address] PCP - General Nurse Practitioner 09/25/18 documented as of this encounter
--- OUTSIDE RECORDS SUMMARY | 2025-01-14 15:02 | XMS_ITS | Encounter Summary ---
Author Organization [facility] Address [address] [place] [address] Care Team Providers Care Tubing Mill Setter Name Role Phone Ty Amin MD Primary Care Provider [phone] Mckayla Blas OUTBOUND SALES ADVISOR Unavailable [phone] Mckayla Blas OUTBOUND SALES ADVISOR Unavailable [phone] Encounter Details Date Type Department Care Team (Late st Contact Info) Description 04/14/2024 Orders Only [facility] [address] [place] [address] Mckayla Blas OUTBOUND SALES ADVISOR [address] [place] [address] Social History Tobacco Use Types Packs/Day Years [...] often do you attend chur ch or baptist services? 1 to 4 times per year 07/10/2023 Do you belong to any clubs o r organizations such as mandaen groups, unions, fraternal or athletic groups, or [...] Recorded Patient Health Questionnaire-2 Score 1 01/17/2024 [facility] of Occupat ional Health - Occupational [...] Visit [facility] [address] [place] [address] Mckayla Blas NP [address] [place] [address] 01/28/2025 10:50 AM EDT Office Visit [facility] [address] [place] [address] Rain Souza MD [address] [place] [address] documented as of this encounter Procedures Procedure [...] Right Radiogr aphic Imaging us Mckayla Wan OUTBOUND SALES ADVISOR IMG XR PROCEDURES Final Result documented in this encounter Visit Diagnoses Not on filedocumented in this encounter Additional Health Concerns Assessment Noted Time PHQ-9 Depression Total Score: 3 01/17/20 24 10:08 AM EDT documented as of this encounter Care Teams Tubing Mill Setter Relationship Specialty Start Date End Date Ty Amin MD [address] [place] [address] PCP - General Family Medicine 09/20/23 Mckayla Blas NP [address] [place] [address] PCP - [facility] 09/07/23 01/11/25 Mckayla Blas NP [address] [place] [address] Nurse Practitioner Family Medicine 09/20/23 documented as of this encounter
--- OUTSIDE RECORDS SUMMARY | 2025-01-14 15:02 | XMS_ITS | Encounter Summary ---
Author Organization [facility] Address [address] [place] [address] Care Team Providers Care Configuration Release Manager Name Role Phone Ty Amin MD Primary Care Provider [phone] Mckayla Blas NP Unavailable [phone] Mckayla Blas NP Unavailable [phone] Encounter Details Date Type Department Care [...] often do you attend chur ch or buddhism services? 1 to 4 times per year 07/10/2023 Do you belong to any clubs o r organizations such as sikhism groups, unions, fraternal or athletic groups, or [...] Patient Health Questionnaire-2 Score 1 01/17/2024 [facility] of Occupat ional Health - Occupational [...] Office Visit [facility] [address] [facility] [place] [address] Mckayla Blas NP [address] [facility] [place] [address] 01/28/2025 10:50 AM EDT Office Visit [facility] [address] [place] [address] Rain Souza MD [address] [place] [address] documented as of this encounter Procedures Procedure Name Priority Date/Time Associated Diagnosis Comments MR LUMBAR SPINE WO CON 05/12/2024 2:41 PM EST documented in this encounter Results * MR LUMBAR SPINE WO CON (05/12/2024 2:41 PM EST) Anatomical Region Laterality Modality Other 05/12/2024 2:41 PM EST Narrative 05/12/2024 2:[place] [address] Magnetic Resonance Report Signed Patient: MITZI MACIAS MR#: [id number] : 1970 Acct:[id number] Age/Sex: 53 / F ADM Date: 05/12/24 Loc: MRI Attending Dr: Angela Chin NP Ordering Physician: Angela Chin NP Date of Service: 05/12/24 Procedure(s): MR lumbar spine wo con Accession Number(s): [id number] cc: Mckayla Blas ENTERTAINMENT USHER; Angela Chin NP [place] [id number] Patient Name: MITZI MACIAS MRN: [id number] date: 1970 Sex: F Assigned Patient Location: MRI Current Patient Location: CT Accession/Order Number: [id number] Exam Date: 05/12/2024 09:21 Report Date: 05/12/2024 [...] Signed By: 05/12/24 1443 DD/ 1441 TD/TT: Assistant Auto Center Manager: Procedure Note Radiology, Radiologist, MD - 05/12/2024 [place] [address] Magnetic Resonance Report Signed Patient: MITZI MACIAS LMR#: [id number] : 1970Acct:[id number] Age/Sex: 53 / FADM Date: 05/12/24 Loc: MRI Attending Dr: Agnela Chin NP Ordering Physician: Angela Chin NP Date of Service: 05/12/24 Procedure(s): MR lumbar spine wo con Accession Number(s): [id number] cc: Mckayla Blas NP; Angela Chin NP [address] [place] [address] Patient Name: MITZI MACIAS MRN: [id number] date: 1970 Sex: F Assigned Patient Location: MRI Current Patient Location: CT Accession/Order Number: [id number] Exam Date: 05/12/2024 09:21 Report Date: 05/12/2024 [...] M.D. Signed By:05/12/24 1443 DD/ 144 TD/TT: Assistant Auto Center Manager: us Generic External Data Provider [facility] Final Result documented in this encounter Visit Diagnoses Not on filedocumented in this encounter Additional Health Concerns Assessment Noted Time PHQ-9 Depression Total Score: 3 01/17/20 24 10:08 AM EDT documented as of this encounter Care Teams Configuration Release Manager Relationship Specialty Start Date End Date Ty Amin MD [address] [place] [address] PCP - General Family Medicine 09/20/23 Mckayla Blas NP [address] [place] [address] PCP - [facility] 09/07/23 01/11/25 Mckayla Blas NP [address] [place] [address] Nurse Practitioner Family Medicine 09/20/23 documented as of this encounter
--- OUTSIDE RECORDS SUMMARY | 2025-01-14 15:02 | XMS_ITS | Encounter Summary ---
Author Organization [facility] Address [address] [place] [address] Care Team Providers Care Player Development Executive Name Role Phone Ty Amin MD Primary Care Provider [phone] Mckayla Blas NP Unavailable [phone] Mckayla Blas NP Unavailable [phone] Encounter Details Date Type Department Care [...] any clubs o r organizations such as pentecostalism groups, unions, fraternal or athletic groups, or [...] Recorded Patient Health Questionnaire-2 Score 1 01/17/2024 [facility] of Occupat ional Health - Occupational Stress [...] place to sleep or slept in a fpc (including now)? No 07/10/2023 Comments Unknown Sex [...] [facility] [address] [place] [address] Mckayla Blas NP [address] [place] [address] 01/28/2025 10:50 AM EDT Office Visit [facility] [address] [place] [address] Rain Souza MD [address] [place] [address] documented as of this encounter Procedures Procedure Name Priority Date/Time Associated Diagnosis Comments CT ABDOMEN PELVIS W CON 05/12/2024 2:16 PM EST documented in this encounter Results * CT ABDOMEN PELVIS W CON (05/12/2024 2:16 PM EST) Anatomical Region Laterality Modality Other 05/12/2024 2:16 PM EST Narrative 05/12/2024 2:19 [place] [address] CT Scan Report Signed Patient: MITZI MACIAS MR#: [id number] : 1970 Acct:[id number] Age/Sex: 53 / F ADM Date: 05/12/24 Loc: CT Attending Dr: Sarah MAYERS Ordering Physician: Sarah Vega Date of Service: 05/12/24 Procedure(s): CT abdomen pelvis w con Accession Number(s): [id number] cc: Mckayla Blas NP [place] [address] Patient Name: MITZI MACIAS MRN: [id number] date: 1970 Sex: F Assigned Patient Location: CT Current Patient Location: Accession/Order Number: [id number] Exam Date: 05/12/2024 11:15 Report Date: 05/12/2024 [...] Signed By: 05/12/24 1419 DD/ 1416 TD/TT: Electric Motor Repair Supervisor: Procedure Note Radiology, Radiologist, MD - 05/12/2024 [place] [address] CT Scan Report Signed Patient: MITZI MACIAS LMR#: [id number] : 1970Acct:[id number] Age/Sex: 53 / FADM Date: 05/12/24 Loc: CT Attending Dr: Sarah MAYERS Ordering Physician: Sarah Vega Date of Service: 05/12/24 Procedure(s): CT abdomen pelvis w con Accession Number(s): [id number] cc: Mckayla Blas NP [address] [place] [address] Patient Name: MITZI MACIAS MRN: [id number] date: 1970 Sex: F Assigned Patient Location: CT Current Patient Location: Accession/Order Number: [id number] Exam Date: 05/12/2024 11:15 Report Date: 05/12/2024 [...] M.D. Signed By:05/12/24 1419 DD/ 1416 TD/TT: Electric Motor Repair Supervisor: Generic External Data Provider [facility] Final Result documented in this encounter Visit Diagnoses Not on filedocumented in this encounter Additional Health Concerns Assessment Noted Time PHQ-9 Depression Total Score: 3 01/17/20 24 10:08 AM EDT documented as of this encounter Care Teams Player Development Executive Relationship Specialty Start Date End Date Ty Amin MD [address] [place] [address] PCP - General Family Medicine 09/20/23 Mckayla Blas NP [address] [place] [address] PCP - [facility] 09/07/23 01/11/25 Mckayla Blas NP [address] [place] [address] Nurse Practitioner Family Medicine 09/20/23 documented as of this encounter
--- OUTSIDE RECORDS SUMMARY | 2025-01-14 15:02 | XMS_ITS | Encounter Summary ---
Author Organization [facility] Address [id number] [address] [place] [address] Care Team Providers Care Hairspring Truer Name Role Phone Mckayla Blas APRN-TIME CHECKER Primary Care Provider Encounter Details Date Type Department Care Team (Late st Contact Info) Description 05/03/2020 Telephone [facility] [address] [place] [address] [address] Romero [address], [address] [phone] Social History Tobacco Use Types Packs/Day Years [...] on filedocumented in this encounter Care Teams Hairspring Truer Relationship Specialty Start Date End Date Mckayla Blas APRN-[place] [address] PCP - General Nurse Practitioner 09/25/18 documented as of this encounter
--- OUTSIDE RECORDS SUMMARY | 2025-01-14 15:02 | XMS_ITS | Encounter Summary ---
Author Organization [facility] Address [address] [place] [address] Care Team Providers Care Post Tronic 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 Name Role Phone Ty Amin MD Primary Care Provider [phone] Ty Amin MD Primary Care Provider [phone] Mckayla Blas LINUX PROGRAMMER Unavailable [phone] Mckayla Blas LINUX PROGRAMMER Unavailable [phone] Encounter Details Date Type Department Care Team (Late st Contact Info) Description 09/12/2023 Orders Only [facility] [address] [place] [address] Social History Tobacco Use Types Packs/Day Years [...] How often do you attend chur or presybeterian services? 1 to 4 times per year 07/10/2023 Do you belong to any clubs o r organizations such as bahai groups, unions, fraternal [...] Recorded Patient Health Questionnaire-2 Score 2 07/10/2023 [facility] of Occupat ional Health - Occupational [...] [facility] [address] [place] [address] Mckayla Blas NP [address] [place] [address] 01/28/2025 10:50 AM EDT Office Visit [facility] [address] [place] [address] Rain Souza MD [address] [place] [address] documented as of this encounter Procedures Procedure Name Priority Date/Time Associated Diagnosis Comments XR CHEST 1 VIEW Routine 09/11/2023 4:52 PM EST documented in this encounter Results * XR chest 1 view (09/11/2023 4:52 PM EST) Anatomical Region Laterality Modality Chest Radiographic Kalani ging [facility] IMG XR PROCEDURES Final Result documented in this encounter Visit Diagnoses Not on filedocumented in this encounter Care Teams Post Tronic 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 Relationship Specialty Start Date End Date Ty Amin MD PCP - General Family Medicine 01/05/23 09/19/23 Ty Amin MD [address] [place] [address] PCP - General Family Medicine 09/20/23 Mckayla Blas NP [address] [place] [address] PCP - [facility] 09/07/23 01/11/25 Mckayla Blas NP [address] [place] [address] Nurse Practitioner Family Medicine 09/20/23 documented as of this encounter
--- OUTSIDE RECORDS SUMMARY | 2025-01-14 15:02 | XMS_ITS | Encounter Summary ---
Author Organization [facility] Address [address] [place] [address] Care Team Providers Care Incendiaries Supervisor Name Role Phone Ty Amin MD Primary Care Provider [phone] Mckayla Blas TERRAPIN FISHER Unavailable [phone] Mckayla Blas TERRAPIN FISHER Unavailable [phone] Encounter Details Date Type Department Care Team (Late st Contact Info) Description 07/14/2024 Orders Only [facility] [address] [place] [address] Mckayla Blas TERRAPIN FISHER [address] [place] [address] Social History Tobacco Use Types Packs/Day Years [...] often do you attend chur ch or zoroastrian services? 1 to 4 times per year [...] Health Questionnaire-2 Score 1 01/17/2024 [facility] of Occupat ional Health - Occupational Stress [...] 01/26/2025 6:00 PM EDT [facility] [address] [place] [address] Mckayla Blas NP [address] [place] [address] 01/28/2025 10:50 AM EDT Office Visit [facility] [address] [place] [address] Rain Souza MD [address] [place] [address] documented as of this encounter Procedures Procedure [...] documented as of this encounter Care Teams Incendiaries Supervisor Relationship Specialty Start Date End Date Ty Amin MD [address] [place] [address] PCP - General Family Medicine 09/20/23 Mkcayla Blas NP [address] [place] [address] PCP - [facility] 09/07/23 01/11/25 Mckayla Blas NP [address] [place] [address] Nurse Practitioner Family Medicine 09/20/23 documented as of this encounter
--- OUTSIDE RECORDS SUMMARY | 2025-01-14 15:02 | XMS_ITS | Encounter Summary ---
Author Organization [employer] Address [facility] [place] [place] [address] [place] [address] Care Team Providers Care Gerontology Aide Name Role Phone JuanjoseMckayla carcamo Krystal DIAMOND DRILLER-QUARTZ MINER BLASTING Primary Care Provider Encounter Details Date Type Department Care Team (Late st Contact Info) Description 05/31/2020 Orders Only [facility] [address] [place] [address] External, Scanning Provider Social History Tobacco Use [...] ECG ORDERABLES Final Result Performing Organization Address [facility] Co de Phone Number MANUALLY [...] ECG ORDERABLES Final Result Performing Organization Address [facility] Co de Phone Number MANUALLY TRANSCRIBED RESULTS * Pulmonary function test (10/24/2018) us Scanning Provider External PFT ORDERABLES Final Result Performing Organization Address [facility] Co de Phone Number MANUALLY TRANSCRIBED RESULTS * Nuc stress Lexiscan/Exercise (12/12/2016) Anatomical Region Laterality Modality Chest N/A Nuclear Medicine us Scanning Provider External CV STRESS ORDERABLES Final Result documented in this encounter Visit Diagnoses Not on filedocumented in this encounter Care Teams Gerontology Aide Relationship Specialty Start Date End Date Mckayla Blas, DIAMOND DRILLER-QUARTZ MINER BLASTING [address] [place] [address] PCP - General Nurse Practitioner 09/25/18 documented as of this encounter
--- OUTSIDE RECORDS SUMMARY | 2025-01-14 15:02 | XMS_ITS | Encounter Summary ---
Author Organization [facility] Address [address] [place] [address] Care Team Providers Care Manual Equipment Mechanic Name Role Phone Ty Amin MD Primary Care Provider [phone] Mckayla Blas NP Unavailable [phone] Mckayla Blas NP Unavailable [phone] Encounter Details Date Type Department Care [...] any clubs o r organizations such as druze groups, unions, fraternal or athletic groups, or [...] Patient Health Questionnaire-2 Score 1 01/17/2024 [facility] of Occupat ional Health - [...] Office Visit [facility] [address] [facility] [place] [address] Mckayla Blas NP [address] [place] [address] 01/28/2025 10:50 AM EDT Office Visit [facility] [address] [place] [address] Rain Souza MD [address] [place] [address] documented as of this encounter Procedures Procedure Name Priority Date/Time Associated Diagnosis Comments SEGMENTAL BLOOD PRESSURE 04/24/2024 11:20 AM EDT documented in this encounter Results * SEGMENTAL BLOOD PRESSURE (04/24/2024 11:20 AM EDT) Anatomical Region Laterality Modality Radiographic Kalani ging 04/24/2024 11:2 0 AM EDT Narrative 04/24/2024 11:23 AM EDT The [address] [address] Vein Report Signed Patient: MITZI MACIAS MR#: [id number] : 1970 Acct:[id number] Age/Sex: 53 / F ADM Date: 04/24/24 Loc: VC Attending Dr: Rafael Gongora Ordering Physician: Rafael Gongora Date of Service: 04/24/24 Procedure(s): VC SEGMENTAL PRESSURES Accession Number(s): [id number] cc: Mckayla Blas AUGER PRESS OPERATOR; Rafael Gongora [place] [id number] Patient Name: MITZI MACIAS MRN: [id number] date: 1970 Sex: F Assigned Patient Location: Current Patient Location: VC Accession/Order Number: [id number] Exam Date: 04/24/2024 10:25 Report Date: 04/24/2024 11:20 At the request of: RAFAEL GONGORA Procedure: VC SEGMENTAL PRESSURES EXAM: VC SEGMENTAL PRESSURES HISTORY: R09.89 COMPARISON: None. FINDINGS: Segmental pressures presented as follows (right, left) in mmHg. Brachial: 169, 166 Upper thigh: Not obtained Lower thigh: 129, 119 Calf: 124, 106 DPA: 108, 105 ROUTE DELIVERY MANAGER: 100, 91 1st Toe: 124, 142 ISABELLE: [...] Signed By: 04/24/24 1123 DD/ 1120 TD/TT: Rn Behavioral Health: Procedure Note Radiology, Radiologist, - 04/24/2024 The [place] [id number] Vein Report Signed Patient: MITZI MACIAS LMR#: [id number] : 1970Acct:[id number] Age/Sex: 53 / FADM Date: 04/24/24 Loc: VC Attending Dr: Rafael Gongora Ordering Physician: Rafael Gongora Date of Service: 04/24/24 Procedure(s): VC SEGMENTAL PRESSURES Accession Number(s): [id number] cc: Mckayla Blas AUGER PRESS OPERATOR; Rafael Gongora The [place] [id number] Patient Name: MITZI MACIAS MRN: [id number] date: 1970 Sex: F Assigned Patient Location: Current Patient Location: VC Accession/Order Number: [id number] Exam Date: 04/24/2024 10:25 Report Date: 04/24/2024 11:20 At the request of: RAFAEL GONGORA Procedure: VC SEGMENTAL PRESSURES EXAM: VC SEGMENTAL PRESSURES HISTORY: R09.89 COMPARISON: None. FINDINGS: Segmental pressures presented as follows (right, left) in mmHg. Brachial: 169, 166 Upper thigh: Not obtained Lower thigh: 129, 119 Calf: 124, 106 DPA: 108, 105 ROUTE DELIVERY MANAGER: 100, 91 1st Toe: 124, 142 ISABELLE: [...] M.D. Signed By:04/24/24 1123 DD/ 1120 TD/TT: Rn Behavioral Health: us Generic External Data Provider IMG XR PROCEDURES Final Result documented in this encounter Visit Diagnoses Not on filedocumented in this encounter Additional Health Concerns Assessment Noted Time PHQ-9 Depression Total Score: 3 01/17/20 24 10:08 AM EDT documented as of this encounter Care Teams Manual Equipment Mechanic Relationship Specialty Start Date End Date Ty Amin MD [address] [place] [address] PCP - General Family Medicine 09/20/23 Mckayla Blas NP [address] [place] [address] PCP - [facility] 09/07/23 01/11/25 Mckayla Blas NP [address] [place] [address] Nurse Practitioner Family Medicine 09/20/23 documented as of this encounter
--- OUTSIDE RECORDS SUMMARY | 2025-01-14 15:03 | XMS_ITS | Encounter Summary ---
Author Organization [facility] Address [address] [place] [address] Care Team Providers Care Genetic Supervisor Name Role Phone Ty Amin MD Primary Care Provider [phone] Mckayla Blas RICE FIELD WORKER Unavailable [phone] Mckayla Blas RICE FIELD WORKER Unavailable [phone] Reason for Visit * Reason Comments Med Refill Encounter Details Date Type Department Care Team (Late st Contact Info) Description 11/27/2023 Refill [facility] [address] [place] [address] Mckayla Blas NP [address] [place] [address] Chronic obstructive pulmonary disease, unspecified (HCC) Social [...] How often do you attend chur or shinto services? 1 to 4 times per year 07/10/2023 Do you belong to any clubs o r organizations such as worship groups, unions, fraternal or athletic groups, or [...] Recorded Patient Health Questionnaire-2 Score 0 11/01/2023 [facility] of Occupat ional Health - Occupational Stress [...] 01/26/2025 6:00 PM EDT [facility] [address] [place] [address] Mckayla Blas NP [address] [place] [address] 01/28/2025 10:50 AM EDT Office Visit [facility] [address] [place] [address] Rain Souza MD [address] [place] [address] documented as of this encounter Visit Diagnoses Diagnosis Chronic obstructive pulmonary disease, unspecified (HCC) Type 2 diabetes mellitus with hyperglycemia, with long-term current use of insulin (HCC) documented in this encounter Care Teams Genetic Supervisor Relationship Specialty Start Date End Date Ty Amin MD [address] [place] [address] PCP - General Family Medicine 09/20/23 Mckayla Blas NP [address] [place] [address] PCP - [facility] 09/07/23 01/11/25 Mckayla Blas NP [address] [place] [address] Nurse Practitioner Family Medicine 09/20/23 documented as of this encounter
--- OUTSIDE RECORDS SUMMARY | 2025-01-14 15:03 | XMS_ITS | Patient Health Record ---
Author Organization The [facility] [place] Address [address] [place] [address] Care Team Providers Care Lumber Estimator Name Role Phone Mckayla Blas CNP Primary Care Provider Unavail able Armando Yañez Unavailable [phone] Allergies No Known Allergies Results Component Value Reference Range Notes VC SEGMENTAL PRESSURES (Not yet reviewed by provider) Interpretation: Performing Lab: Notes/Report: Source Facility: [place] [address] Vein Report Signed Patient: MITZI MACIAS MR#: [id number] : 1970 Acct:[id number] Age/Sex: 53 / F ADM Date: 04/24/24 Loc: VC Attending Dr: Rafael Gongora Ordering Physician: Rafael Gongora Date of Service: 04/24/24 Procedure(s): VC SEGMENTAL PRESSURES Accession Number(s): [id number] cc: Mckayla Blas MEAT STOCKER; Rafael Gongora [place] [address] Patient Name: MTIZI MACIAS MRN: [facility]:[id number] date: 1970 Sex: F Assigned Patient Location: VC Current Patient Location: VC Accession/Order Number: [id number] Exam Date: 04/24/2024 10:25 Report Date: 04/24/2024 11:20 At the request of: RAFAEL GONGORA Procedure: VC SEGMENTAL PRESSURES EXAM: VC SEGMENTAL PRESSURES HISTORY: R09. COMPARISON: None. FINDINGS: Segmental pressures presented as follows (right, left) in mmHg. Brachial: 169, 166 Upper thigh: Not obtained Lower thigh: 129, 119 Calf: 124, 106 DPA: 108, 105 LUCERNE FARMER: 100, 91 1st Toe: 124, 142 ISABELLE: [...] Signed By: 04/24/24 112 DD/ 112 TD/TT: Boil Off Worker: [place] [address] Vein Report Signed Patient: BARBY MACIAS MR#: [id number] : 1970 Acct:[id number] Age/Sex: 53 / F ADM Date: 04/24/24 Loc: VC Attending Dr: Nanci Gongora Ordering Physician: Rafael Gongora Date of Service: 04/24/24 Procedure(s): VC SEGMENTAL PRESSURES Accession Number(s): [id number] cc: Mckayla Blas MEAT STOCKER ; Rafael Gongora [place] [id number] Patient Name: MITZI MACIAS MRN: [id number] date: 1970 Sex: F Assigned Patient Location: VC Current Patient Location: VC Accession/Order Numb er: [id number] Exam Date: 10:25 Report Date: 04/24/2024 11:20 At the request of: RAFAEL GONGORA Procedure: VC SEGMEN KARY PRESSURES EXAM: VC SEGMENTAL PRESSURES HISTORY: R09.89 COMPARISON: None. FINDINGS: Segmental pressures presented as follows (right, left) in mmHg. Brachial: 169, 166 Upper thigh: Not obtained Lower thigh: 129, 119 Calf: 124, 106 DPA: 108, 105 LUCERNE FARMER: 100, 91 1st Toe: 124, 142 ISABELLE: [...] M.D. Signed By: 04/24/243 DD/ 19 TD/TT: Boil Off Worker: CBC AUTO DIFF (Not yet revie wed by provider) Interpretation: Performing Lab: Notes/Report: [facility] , White Blood Count 12.8 4.0-11.0 10 [...] 3/uL Performing Lab: see note ML - [facility] LB PROF CHEM 8 (BAS METB) (Not yet reviewed by provider) Interpretation: Performing Lab: Notes/Report: [facility] , Sodium 142 136-145 mmol/L Potassium 4.2 [...] Performing Lab: see note ML - [facility] LB Reason For Referral No Information Medications [...] Days Active Vitamin D (Ergocalciferol) 1.25 MG (56586 UT) Oral for 90 Days Activ e Breztri Aerosphere 160-9-4.8 MCG/ACT Inhalation for 30 Days Active Simvastatin 10 MG Oral for 90 Days Active Roflumilast 250 MCG Oral for 28 Days Active Immunizations Vaccine Route Administration Date Status Comme nts Flu, Fluzone (15082) 6-35mo, multi-dose vial (2234-3688) Unknown 05/18/2023 Administered Pneumococcal (Pneumovax 23) Unknown [...] ulcer due to type 2 diabetes mellitus (0548652116683) Type 2 diabetes mellitus with foot ulcer (E11.621) Active confirmed Problem 477080979 Morbid (severe) obesity due to excess calories (E66.01) Active confirmed Problem Venous ulcer of lower extremity due to chronic peripheral venous hypertension (344917413371745) Chronic venous hypertension (idiopathic) with ulcer of left lower extremity (I87.312) Active confirmed Problem Chronic non-pressure ulcer of calf extending to fat level (7459805346939630 1) Non-pressure chronic ulcer of other part of right lower leg with fat layer exposed (L97.812) Active confirmed Problem Chronic ulcer of skin of lower leg (disorder) (0548270341957661 4) Non-pressure chronic ulcer of other part of left lower leg limited to breakdown of skin (L97.821) Active confirmed Problem 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 exposed (L97.822) Active confirmed Problem Long-term current use of inhaled steroid (186912818) 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 inhaled steroids (Z79.51) Active confirmed Problem COPD - Chronic obstructive pulmonary disease (39405305) COPD (chronic obstructive pulmonary disease) (J44.9) Active confirmed Problem Hypertension (54979555) HTN (hypertension) (I10) Active confirmed Problem Obstructive sleep apnea syndrome (08974371) DANIEL (obstructive sleep apnea) (G47.33) Active confirmed Problem Lumbar radiculopathy (482226376) Lumbar radiculopathy (M54.16) Active confirmed Problem Diabetes mellitus type 2 (disorder) (55678593) DM2 (diabetes mellitus, type 2) (E11.9) Active confirmed Problem 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) Cigarette nicotine dependence with nicotine-induced disorder (F17.219) Active confirmed Problem Leukocytosis (113565061) Leukocytosis (D72.829) Active confirmed Problem Acute exacerbation of chronic obstructive airways disease (579226000) COPD with exacerbation (J44.1) Active confirmed Problem 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 (I87.313) Active confirmed Problem Non-prs chr ulce r oth prt l low leg limited to brkdwn skin (L97.821) Active confirmed Problem Stasis dermatitis co-occurrent with venous ulcer of right lower extremity due to chronic peripheral venous hypertension (108010882802398) Idiopathic chronic venous hypertension of right lower extremity with ulcer (I87.311) Active confirmed Problem Chronic venous hypertension with ulcer and inflammation involving left side (I87.332) Active confirmed Problem Abnormal arterial blood gas (501059073) Elevated carbon dioxide level (R79.81) Active confirmed Problem Skin ulcer of right knee, limited to breakdown of skin (L97.811) Active confirmed Encounters Encounter Location Date Provider Diagnosis [facility] [address] [place] [address] 04/07/2024 Armando Yañez [facility] [address] [place] [address] 12/02/2024 Armando De Leon Plan Of Treatment Pending Test Test Name Order Date CBC AUTO DIFF 08/27/2024 PROF CHEM 8 (BAS METB) 08/27/2024 VC SEGMENTAL PRESSURES 04/24/2024 Insurance Providers Payer Name Payer Address Payer Phone Subscriber Number Group Number Insured Name Patient Relationship to Insured Coverage Start Date Coverage End Date [facility] [employer] [address] [place] [address] [id number] Mitzi Macias Self - patient is the [...] (hyperlipidemia) E78.5 Elevated carbon dioxide level R79.81 halfway (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 inhaled stero ids Z79.51 Anxiety and depression F41.8 GERD (gastroesophageal reflux disease) K 21.9 Surgical History Surgery Date(Month/Year) hysterectomy cholecystectomy toe surgery Hospitalization History Reason Date(Month/Year) Pneumonia -[facility] 08/31/2023 COPD Exacerbation-[facility] 09/10/2023
--- OUTSIDE RECORDS SUMMARY | 2025-01-14 15:03 | XMS_ITS | Encounter Summary ---
Author Organization [facility] Address [address] [place] [address] Care Team Providers Care Sample Mounter Name Role Phone Ty Amin MD Primary Care Provider [phone] Mckayla Blas REPLANTER Unavailable [phone] Mckayla Blas NP Unavailable [phone] Encounter Details Date Type Department Care Team (Late st Contact Info) Description 12/14/2023 Clinisync Result Encounter [facility] External Department Unsolicited Mckayla Blas NP [address] [place] [address] Social History Tobacco Use Types Packs/Day Years [...] any clubs o r organizations such as hindu groups, unions, fraternal or athletic groups, or [...] Patient Health Questionnaire-2 Score 0 11/01/2023 [facility] - Occupational Stress Questionnaire Answer Date [...] 01/26/2025 6:00 PM EDT [facility] [address] [place] [address] Mckayla Blas NP [address] [place] [address] 01/28/2025 10:50 AM EDT Office Visit [facility] [address] [place] [address] Rain Souza MD [address] [place] [address] documented as of this encounter Procedures Procedure Name Priority Date/Time Associated Diagnosis Comments MM TOMOSYNTHESIS SCREENING BI 12/14/2023 11:21 AM EDT documented in this encounter Results * MM TOMOSYNTHESIS SCREENING BI (12/14/2023 11:21 AM EDT) Anatomical Region Laterality Modality Other 12/14/2023 11:2 1 AM EDT Narrative 12/14/2023 11:22 AM EDT The [address] [address] Mammography Report Signed Patient: MITZI MACIAS MR#: [id number] : 1970 Acct:[id number] Age/Sex: 53 / F ADM Date: 12/13/23 Loc: MAMMO Attending Dr: Mckayla Blas NP Ordering Physician: Mckayla Blas NP Results: Date of Service: 12/13/23 Follow Up: Procedure(s): MM tomosynthesis screening BI Accession Number(s): [id number] cc: Mckayla Blas NP Patient Name: MITZI MACIAS MR#: [id number] : 1970 Exam Date: 12/13/2023 Ordering Doctor: [...] at age 75. LOCATION: [facility] BREAST COMPOSITION: The breasts are almost [...] Signed By: 12/14/23 1122 DD/ 1121 TD/TT: Drafter Plumbing: Procedure Note Radiology, Radiologist, MD - 12/14/2023 [place] [address] Mammography Report Signed Patient: MITZI MACIAS LMR#: [id number] : 1970Acct:[id number] Age/Sex: 53 / FADM Date: 12/13/23 Loc: MAMMO Attending Dr: Mckayla Blas NP Ordering Physician: Mckayla Blas NPResults: Date of Service: 12/13/23Follow Up: Procedure(s): MM tomosynthesis screening BI Accession Number(s): [id number] cc: Mckayla Blas NP Patient Name: MITZI MACIAS MR#: [id number] : 1970 Exam Date: 12/13/2023 Ordering Doctor: SAYDA Blas AQUATICS ASSISTANT DEPARTMENT HEAD RADIOLOGY REPORT PROCEDURE: MM TOMOSYNTHESIS SCREENING BI [...] at age 75. LOCATION: [facility] BREAST COMPOSITION: The breasts are almost [...] M.D. on 12/14/2023 at 11:18 Approved by: oNel Ivan M.D. on 12/14/2023 at 11:21 Dictated By: Noel Ivan M.D. Signed By:12/14/23 1122 DD/ 1121 TD/TT: Drafter Plumbing: us Mckayla Blas NP [facility] Final Result documented in this encounter Visit Diagnoses Not on filedocumented in this encounter Care Teams Sample Mounter Relationship Specialty Start Date End Date Ty Amin MD [address] [place] [address] PCP - General Family Medicine 09/20/23 Mckayla Blas NP [address] [place] [address] PCP - [facility] 09/07/23 01/11/25 Mckayla Blas NP [address] [place] [address] Nurse Practitioner Family Medicine 09/20/23 documented as of this encounter
--- OUTSIDE RECORDS SUMMARY | 2025-01-14 15:03 | XMS_ITS | Encounter Summary ---
Author Organization [facility] Address [address] [place] [address] Care Team Providers Care Procurement Technician Name Role Phone Ty Amin MD Primary Care Provider [phone] Mckayla Blas SWITCH ENGINEER Unavailable [phone] Mckayla Blas SWITCH ENGINEER Unavailable [phone] Encounter Details Date Type Department Care Team (Late st Contact Info) Description 01/07/2025 Abstract [facility] [address] [place] [address] Mckayla Blas NP [address] [place] [address] Social History Tobacco Use Types [...] often do you attend chur ch or worship services? More than 4 times per year [...] Recorded Patient Health Questionnaire-2 Score 1 01/17/2024 [facility] - Occupational [...] any time in the past 12 m [facility], were you homeless or living in [...] Visit [facility] [address] [place] [address] Mckayla Blas NP [address] [place] [address] 01/28/2025 10:50 AM EDT Office Visit [facility] [address] [place] [address] Rain Souza MD [address] [place] [address] documented as of this encounter Visit Diagnoses Not on filedocumented in this encounter Additional Health Concerns Assessment Noted Time PHQ-9 Depression Total Score: 3 01/17/20 24 10:08 AM EDT documented as of this encounter Care Teams Procurement Technician Relationship Specialty Start Date End Date Ty Amin MD [address] [place] [address] PCP - General Family Medicine 09/20/23 Mckayla Blas NP [address] [place] [address] PCP - [facility] 09/07/23 01/11/25 Mckayla Blas NP [address] [place] [address] Nurse Practitioner Family Medicine 09/20/23 documented as of this encounter
--- OUTSIDE RECORDS SUMMARY | 2025-01-14 15:03 | XMS_ITS | Encounter Summary ---
Author Organization [facility] Address [address] [place] [address] Care Team Providers Care Independent Driver Name Role Phone Ty Amin MD Primary Care Provider [phone] Mckayla Blas REGIONAL TELECOMMUNICATIONS SPECIALIST Unavailable [phone] Mckayla Blas NP Unavailable [phone] Encounter Details Date Type Department Care Team (Late st Contact Info) Description 12/17/2023 Orders Only [facility] [address] [place] [address] Mckayla Blas NP [address] [place] [address] Social History Tobacco Use Types Packs/Day Years [...] often do you attend chur ch or scientologist services? 1 to 4 times per year 07/10/2023 Do you belong to any clubs o r organizations such as scientology groups, unions, fraternal [...] Recorded Patient Health Questionnaire-2 Score 0 11/01/2023 [facility] - [...] in a detention (including now)? No 07/10/2023 Comments Unknown Sex and Gender Information Value Date Recorded Sex Assigned at Not on file Legal Sex Female 6:50 PM EDT Gender Identity Not on file Sexual Orientation Not on file documented as of this encounter Plan of Treatment Upcoming Encounters Date Type Department Care Team (Late st Contact Info) Description 01/26/2025 6:00 PM EDT [facility] [address] [place] [address] Mckayla Blas NP [address] [place] [address] 01/28/2025 10:50 AM EDT Office Visit [facility] [address] [place] [phone] Rain Souza MD [address] [place] [address] documented as of this encounter Procedures Procedure Name Priority Date/Time Associated Diagnosis Comments MM SCREENING MAMM WITH 3D SERENA - US AND ADDITIONAL Routine 12/14/2023 8:34 AM EDT documented in this encounter Results * MM SCREENING MAMM WITH 3D SERENA - US AND ADDITIONAL (12/14/2023 8:34 AM EDT) Anatomical Region Laterality Modality Radiographic Kalani ging Mckayla Blas REGIONAL TELECOMMUNICATIONS SPECIALIST IMG XR PROCEDURES Final Result documented in this encounter Visit Diagnoses Not on filedocumented in this encounter Care Teams Independent Driver Relationship Specialty Start Date End Date Ty Amin MD [address] [place] [address] PCP - General Family Medicine 09/20/23 Mckayla Blas NP [address] [place] [address] PCP - [facility] 09/07/23 01/11/25 Mckayla Blas NP [address] [place] [address] Nurse Practitioner Family Medicine 09/20/23 documented as of this encounter
--- OUTSIDE RECORDS SUMMARY | 2025-01-14 15:03 | XMS_ITS | Clinical Summary ---
Author Organization [employer] Address [id number] [address] [place] [address] Care Team Providers Care Needle Molder Name Role Phone Wan Mckayla Krystal PEREZN-AUTOMOTIVE WARRANTY ADMINISTRATOR Primary Care Provider Allergies No known active [...] Medical Devices Not on file Insurance [place] [employer] MEDICARE Care Teams Needle Molder Relationship Specialty Start Date End Date Mckayla Blas APRN-AUTOMOTIVE WARRANTY ADMINISTRATOR [address] [place] [address] PCP - General Nurse Practitioner 09/25/18
--- OUTSIDE RECORDS SUMMARY | 2025-01-14 15:03 | XMS_ITS | Clinical Summary ---
Author Organization [facility] Address [address] [place] [address] Care Team Providers Care Supervisor Gear Repair Name Role Phone Mckayla Blas MD Primary Care Provider [phone] Allergies No known active allergies Medications amitriptyline [...] SUBCUTANEOUSLY TWICE DAILY 2 Active HYDROcodone-ac etaminophen ([place]) 5-325 mg tablet TAKE 1 TABLET BY MOUTH THREE TIMES A DAY NEEDED FOR PAIN MUST LAST 30 DAYS 4 Active DULoxetine (Cymbalta) [address] capsule Take 1 tablet by mouth in the morning. Active ergocalciferol (Vitamin D-2) 1.25 MG (68356 Units) capsule Take 1.25 mg by mouth. 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 group home current use of inhaled steroid 025 Vitamin [...] Assessment & Plan: Open wounds refer to [facility] Wound Care Vaginal yeast infection [...] see [facility] Cardiology as well Encounters Date Type Department Care Team Description 01/06/2025 11:20 AM EDT Office Visit [place] [address] [place] [address] Karma Chatterjee CNP Chronic diastolic heart failure [...] apnea; LVH (left ventricular hypertrophy) 10/21/2024 Telephone [facility] [address] [place] [address] Mickie Hammond MA from Last [...] drink = 0.6 oz pur e alcohol) [place] Safety & Environment Answer Date Rec orded [...] topic Insurance [employer] MEDICARE Care Teams Supervisor Gear Repair Relationship Specialty Start Date End Date Mckayla Blas MD [facility] [place] [address] PCP - General Nurse Practitioner 11/13/23
--- OUTSIDE RECORDS SUMMARY | 2025-01-14 15:03 | XMS_ITS | Clinical Summary ---
Author Organization [facility] Address [address] [place] [address] Care Team Providers Care Barn Manager Name Role Phone Ty Amin MD Primary Care Provider [phone] Mckayla Blas STAFF DEVELOPER Unavailable [phone] Allergies No known active allergies Medications [...] if needed for wheezing. Active HYDROcodone-aceta minophen ([place]) 5-325 MG tablet 1 tablet 3 (three) [...] 2 diabetes mellitus with other circulatory complications ([facility]) INJECT 15MG SUBCUTANEOUSLY ONCE A WEEK 6 mL 1 Active Accu-Chek Guide Test test stripIndications: Type 2 diabetes mellitus with other circulatory complications ([facility]) USE TO TEST BLOOD SUGAR 4 TIMES [...] at bedtime, rotate sites 30 patch 1 Active Lantus SoloStar 100 UNIT/ML pen 025 Active pregabalin (Lyrica) 150 MG capsule Take 150 mg by mouth Daily Active ammonium lactate (Lac-Hydrin) 12 % lotion APPLY TO BILATERAL FEET EVERY DAY 025 Active fluconazole (Diflucan) 150 MG tabletIndications :Antibiotic-induc ed yeast infection One time dose, repeat in 3 days . Do not take cholesterol pill while taking this medication. Once finished then resume 2 tablet 1 025 Active Roflumilast 500 MCG tabletIndications :Chronic obstructive pulmonary disease, unspecified (HCC) Take 1 tablet by mouth Daily 90 tablet 1 025 2024 Active HySept 0.25 % external solution APPLY TO GAUZE AND PLACE ON RIGHT LOWER LEG ULCERS, CHANGE DAILY 025 Active amitriptyline (Elavil) 25 MG tabletIndications [...] mouth Daily 90 tablet 1 2024 Active dapagliflozin (Farxiga) 10 MGIndications:Typ e 2 diabetes mellitus with unspecified complications (HCC) Take 1 tablet (10 mg) by mouth Daily 90 tablet 1 2024 Active DULoxetine (Cymbalta) [address] capsuleIndication s:Anxiety and depression Take 1 capsule (60 mg) by mouth in the morning and 1 capsule (60 mg) before bedtime. Do not crush or chew. 180 capsule 2024 Active ergocalciferol (Vitamin D2) 1.25 MG (87991 UT) capsuleIndication s:Vitamin D deficiency, unspecified Take 1 capsule (1.25 mg) by mouth 2 (two) times a week 24 capsule 1 2024 Active hydrALAZINE (Apresoline) 25 MG tabletIndications :Primary hypertension Take 1 tablet (25 mg) by mouth in the morning and 1 tablet (25 mg) before bedtime. 180 tablet 1 2024 Active lisinopril 20 MG tabletIndications :Primary [...] wrapped, 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 as possible intermediate frame tender current use of inhaled steroid 025 Non-pressure [...] see if helps Encounter for subsequent [facility] wellness visit (AWV) in Medicare patient 01/17/2024 [...] can try ubrelvy #3 samples given: Lot [id number], exp 03/2025 Mixed incontinence 11/14/2023 Arthritis 11/14/2023 [...] is necessary they take over prescribing Pancreatitis ([facility]-HCC) 09/17/2023 COPD exacerbation 09/17/2023 Assessment & [...] 11:17 AM EDT): Open wounds refer to [facility] Wound Care Pulmonary hypertension 09/17/2023 Assessment & Plan (12/09/2024 7:23 AM EDT): Has seen [facility] Cardiology Assessment & Plan (11/15/2023 3:49 PM EDT): Saw [facility] Cardiology See notes Going to see Pulmonary Assessment & Plan (09/27/2023 1:03 PM EDT): Needs to wear her PAP I am also going to have her see [facility] Cardiology as well PAD (peripheral artery [...] spiriva Will trial breztri: #2 samples given [id number], exp 03/03, rinse mouth after use Give [...] AM EST): Current meds: albuterol, duoneb, 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 Assessment & Plan (01/17/2024 [...] lost script I did contact [facility] in [place], they will get another fill on this [...] follow with Libby On asa, tila, statin, tricia romero Most recent A1c is 9.2% on 05/27/24 [...] of the risks of continued smoking: stroke, [place], all forms of cancer, lung disease, and [...] of the risks of continued smoking: stroke, [place], all forms of cancer, lung disease, and [...] Encounters Date Type Department Care Team Description 01/07/2025 Abstract [facility] [address] [place] [address] Mckayla Blas NP 01/07/2025 Abstract [facility] [address] [place] [address] Mckayla Blas NP 12/18/2024 Refill [facility] [address] [place] [address] Mckayla Blas NP Hyperlipidemia, unspecified ; Tobacco user; Encounter for smoking cessation counseling 12/17/2024 Telephone [facility] [address] [place] [address] Mckayla Blas NP Error (VOID this visit) 12/09/2024 10:00 AM EDT Office Visit [facility] [address] [place] [address] Mckayla Blas NP Cellulitis of left lower extremity (Primary Dx); COPD exacerbation (HCC); Primary hypertension ; Pulmonary hypertension (HCC); Morbid (severe) obesity due to excess calories ([facility]-HCC); Type 2 diabetes mellitus with complication, with long-term current use of insulin (HCC); Anxiety and depression ; Fever, unspecified fever cause 12/09/2024 Bamboo flowsheet [facility] [address] [place] [address] Mckayla Blas NP 12/08/2024 Travel 12/04/2024 Clinisync Result Encounter [facility] External Department Unsolicited Provider, Generic External Data 10/29/2024 Refill [facility] [address] [place] [address] Mckayla Blas NP Tobacco user; Encounter for smoking cessation counseling 10/27/2024 2:00 PM EDT Office Visit [facility] [address] [place] [address] Mckayla Blas NP Primary hypertension (Primary Dx); Diabetic polyneuropathy associated with type 2 diabetes mellitus (HCC); Chronic diastolic heart failure (HCC); Bilateral lower extremity edema; Morbid (severe) obesity due to excess calories ([facility]-HCC); Type 2 diabetes mellitus with complication, with long-term current use of insulin (HCC); Anxiety and depression ; Cigarette nicotine dependence without complication; Encounter for screening mammogram for malignant neoplasm of breast; Insomnia; Non-seasonal allergic rhinitis, unspecified trigger; Type 2 diabetes mellitus with unspecified complications ([facility]); Vitamin D deficiency, unspecified; Gastro-esophageal reflux disease without esophagitis; PAD (peripheral artery disease); Gastroesophageal reflux disease, unspecified whether esophagitis present; Venous ulcer of right leg (HCC) 10/27/2024 Refill [facility] [address] [place] [address] Mckayla Blas NP 10/21/2024 [facility]ill [facility] [address] [place] [address] Mckayla Blas NP Chronic obstructive pulmonary disease, unspecified (HCC) from Last 3 Months Immunizations Immunization Administration Dates Next Due Influenza Whole 05/02/2013 Influenza, [id number] 04/16/2017,05/10/2016 Influenza, Unspecified 05/18/2023,04/16/2017,08/2015 Influenza, injectable, quadrivalent [...] often do you attend chur ch or denominational services? More than 4 times per year 08/26/2024 Do you belong to any clubs o r organizations such as denominational groups, unions, fraternal or athletic groups, or [...] Recorded Patient Health Questionnaire-2 Score 1 01/17/2024 [facility] [place] of Occupat ional Health - Occupational Stress [...] in a jail (including now)? No 07/10/2023 Housing Stability Vital [...] were you homeless or living in a jail (including now)? No 08/26/2024 Comments Unknown Sex [...] 01/26/2025 6:00 PM EDT Office Visit [facility] [address] [place] [address] Mckayla Blas NP [address] [place] [address] 01/28/2025 10:50 AM EDT Office Visit [facility] [address] [place] [address] Rain Odonnell MD [address] [place] [address] Health Maintenance Due Date Last Done Comments CT Colonography 1970 Colonoscopy 1970 FIT 1970 FOBT 1970 Sigmoidoscopy 1970 HPV/Cotest 2000 Pap Smear 10/07/2018 10/08/2015, 10/08/2015 Mammogram 12/13/2024 12/14/2023, 06/0 01/2024, 11/22/2022 Diabetes: Hemoglobin A1C 01/07/20252 025, 05/27/2024, 02/15/2024, Additional history exists Medicare [...] with long-term current use of insulin (HCC) DIABETIC RETINOPATHY SCREENING - OU - BOTH EYES Routine 07/14/2024 3:09 PM EST MM TOMOSYNTHESIS SCREENING BI 12/14/2023 11:21 AM EDT from Last 3 Months or Most Recently Relevant to Health Maintenance Results * BLOOD CULTURE 2 (12/04/2024 5:28 PM EDT) BLOOD CULTURE 2 Blood Culture 2 NG5D NO GROWTH AT 5 DAYS.^NO GROWTH AT 5 DAYS. [facility] 12/04/2024 5:28 PM EDT 12/04/2024 6:18 PM EDT Narrative [facility] - 12/10/2024 2:31 PM EDT LEFT AC us Generic External Data Provider LAB BLOOD ORDERAB LES Final Result Performing Organization Address City/[facility]/ZIP Co de Phone Number [facility] * BLOOD CULTURE 1 (12/04/2024 4:44 PM EDT) BLOOD CULTURE 1 Blood Culture 1 NG5D NO GROWTH AT 5 DAYS.^NO GROWTH AT 5 DAYS. [facility] 12/04/2024 4:44 PM EDT 12/04/2024 5:17 PM EDT Narrative [facility] - 12/10/2024 2:32 PM EDT us Generic External Data Provider LAB BLOOD ORDERAB LES Final Result Performing Organization Address [facility] Co de Phone Number [facility] * POCT glycosylated hemoglobin (Hb A1C) docked device (10/08/2024 11:25 AM EDT) Hemoglobin A1C 7.4 Blood Venous blood specimen / Unknown 10/08/2024 11:25 AM EDT us Rain Odonnell MD POINT OF CARE TEST ENTER/EDIT ORDERABLES Final Result * Diabetic Retinopathy Screening - OU - Both Eyes (07/14/2024 3:09 PM EST) Anatomical Region Laterality Modality Head Other us Mckayla Blas NP OPHTH PHOTOGRAPHY Final Result * MM TOMOSYNTHESIS SCREENING BI (12/14/2023 11:21 AM EDT) Anatomical Region Laterality Modality Other 12/14/2023 11:2 1 AM EDT Narrative 12/14/2023 11:22 AM EDT The [address] [address] Mammography Report Signed Patient: SINA MACIAS MR#: [id number] : 1970 Acct:[id number] Age/Sex: 53 / F ADM Date: 12/13/23 Loc: MAMMO Attending Dr: Mckayla Blas NP Ordering Physician: Mckayla Blas NP Results: Date of Service: 12/13/23 Follow Up: Procedure(s): MM tomosynthesis screening BI Accession Number(s): [id number] cc: Mckayla Blas NP Patient Name: SINA MACIAS MR#: [id number] : 1970 Exam Date: 12/13/2023 Ordering Doctor: [...] cancer at age 75. LOCATION: 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: Procedure Note Radiology, Radiologist, MD - 12/14/[address] [address] Mammography Report Signed Patient: SINA MACIAS LMR#: [id number] : 1970Acct:[id number] Age/Sex: 53 / FADM Date: 12/13/23 Loc: MAMMO Attending Dr: Mckayla Blas STAFF DEVELOPER Ordering Physician: Mckayla Blas NPResults: Date of Service: 12/13/23Follow Up: Procedure(s): MM tomosynthesis screening BI Accession Number(s): [id number] cc: Mckayla Blas NP Patient Name: SINA MACIAS MR#: [id number] : 1970 Exam Date: 12/13/2023 Ordering Doctor: SAYDA Blas VOCATIONAL NURSING INSTRUCTOR RADIOLOGY REPORT PROCEDURE: MM TOMOSYNTHESIS SCREENING BI [...] cancer at age 75. LOCATION: [facility] BREAST COMPOSITION: The breasts are [...] M.D. on 12/14/2023 at 11:18 Approved by: Nole Ivan M.D. on 12/14/2023 at 11:21 Dictated By: Noel Ivan M.D. Signed By:12/14/23 1122 DD/ 1121 TD/TT: Mixed [employer] Farm Worker: Mckayla Blas STAFF DEVELOPER [facility] Final Result from Last 3 Months or Most Recently Relevant to Health Maintenance [facility] Care Teams Barn Manager Relationship Specialty Start Date End Date Ty Amin MD [address] [place] [address] PCP - General Family Medicine 09/20/23 Mckayla Blas NP [address] [place] [address] Nurse Practitioner Family Medicine 09/20/23
--- OUTSIDE RECORDS SUMMARY | 2025-01-14 15:03 | XMS_ITS | Encounter Summary ---
Author Organization [facility] Address [address] [place] [address] Care Team Providers Care Assembly Line Robot Operator Name Role Phone Ty Amin MD Primary Care Provider [phone] Ty Amin MD Primary Care Provider [phone] Mckayla Blas FRONT OFFICE CLERK Unavailable [phone] Mckayla Blas FRONT OFFICE CLERK Unavailable [phone] Encounter Details Date Type Department Care Team (Late st Contact Info) Description 07/08/2023 Abstract [facility] [address] [place] [address] Mckayla Blas NP [address] [place] [address] Social History Tobacco Use Types Packs/Day Years [...] Recorded Patient Health Questionnaire-2 Score 2 07/10/2023 [facility]at ional [facility] [...] Visit [facility] [address] [place] [address] Mckayla Blas, SILVANO [address] [place] [address] 01/28/2025 10:50 AM EDT Office Visit [facility] [address] [place] [address] Rain Souza MD [address] [place] [address] documented as of this encounter Visit Diagnoses Not on filedocumented in this encounter Care Teams Assembly Line Robot Operator Relationship Specialty Start Date End Date Ty Amin MD PCP - General Family Medicine 01/05/23 09/19/23 Ty Amin MD [address] [place] [address] PCP - General Family Medicine 09/20/23 Mckayla Blas NP [address] [place] [address] PCP - [facility] 09/07/23 01/11/25 Mckayla Blas NP [address] [place] [address] Nurse Practitioner Family Medicine 09/20/23 documented as of this encounter
== END 2025-01-14 14:57 | disposition home or self-care (01) ==
LOC: WC 14:56
PROVIDERS: PCP Nurse Practitioner; Visit Provider Podiatrist Foot & Ankle Surgery
DX: I87.311 Chronic venous hypertension (idiopathic) with ulcer of right lower extremity (principal); L97.812 Non-pressure chronic ulcer of other part of right lower leg with fat layer exposed
CPT/HCPCS: G0463

== ENCOUNTER 2025-01-28 14:01 | Outpatient (OUT) | payer MEDICARE, SELFPAY ==
--- OUTSIDE RECORDS SUMMARY | 2024-04-07 05:07 | XMS_ITS ---
Author Organization [facility] in [place] Address [address] [place] [address] Care Team Providers Care Warp Scouring Vat Tender Name Role Phone Mckayla Blas CNP Primary Care Provider Armando Limon Unavailable [phone] REASON FOR VISIT Varenicline Tartrate (Starter) Refill Request Encounters Encounter Location Date Provider Diagnosis Pulmonary Medicine [place] [address] [place] [address] 04/07/2024 Armando Yañez Plan Of Treatment No Information Progress Notes * Mitzi MACIAS LDOB:[birth year] (53 yo F)Acc No.[id number]:04/07/2024 Patient: Mitzi COX :1970 A ge:53 Y S ex:Female Address:[address] [place] [phone] * true * Date: Generated for Tiffanyi terrence/Falupeg/eTransmitting on: 0 01/28/2025 02:03 PM EDT
--- OUTSIDE RECORDS SUMMARY | 2024-12-02 05:30 | XMS_ITS ---
Author Organization The [facility] in [place] Address [address] [place] [address] Care Team Providers Care Chiropractor Assistant Name Role Phone Mckayla Blas CNP Primary Care Provider Armando Limon Unavailable [phone] REASON FOR VISIT 1YEAR-COPD Encounters Encounter Location Date Provider Diagnosis Pulmonary Medicine [place] [address] [place] [address] 12/02/2024 Armando Yañez Plan Of Treatment No Information Progress Notes * Mitzi MACIAS LDOB:[birth year] (54 yo F)Acc No.[id number]:12/02/2024 UNLOCKED PROGRESS NOTE Follow Up Patient: Mitzi COX Provider: Tray Yañez DO :1970 A ge:54 Y S ex:Female Date:12/02/2024 Address:[address] [place], [place] [address] Pcp:Mckayla Blas CNP Subjective: * Chief Complaints: * 1 . 1YEAR-COPD. * Medical History: Objective: * Vitals: Assessment: Plan: * Treatment: * * Electronic signature of Radha Yañez DO on 01/28/2025 at 02:04 PM EDT Sign off status: Pending Visit Status: N /S N/C (No Show/No Charge) * Provider: Tray Yañez DO Date: 0 12/02/2024 Generated for Vanessa ocampo/Luis/eTransmitting on: 0 01/28/2025 02:04 PM EDT
--- OUTSIDE RECORDS SUMMARY | 2024-12-02 05:47 | XMS_ITS ---
Author Organization The [facility] in [place] Address [address] [place] [address] Care Team Providers Care Personal Chef Name Role Phone Mckayla Blas CNP Primary Care Provider Armando Limon [phone] REASON FOR VISIT No Show Appointment Encounters Encounter Location Date Provider Diagnosis Pulmonary Medicine [place] [address] [place] [address] 12/02/2024 Armando Yañez Plan Of Treatment No Information Progress Notes * MACIASMitzi CARPIO LDOB:[birth year] (54 yo F)Acc No.[id number]:12/02/2024 Patient: Mitzi COX :1970 A ge:54 Y S ex:Female Address:[address] [place] [address] * true * Date: Generated for Vanessa ocampo/Luis/eTransmitting on: 0 01/28/2025 02:04 PM EDT
--- OUTSIDE RECORDS SUMMARY | 2025-01-26 18:00 | XMS_ITS | Encounter Summary ---
Author Organization [facility] Address [address] [place] [address] Care Team Providers Care Engine Builder Name Role Phone Ty Amin MD Primary Care Provider [phone] Mckayla Blas MANUAL ARTS THERAPIST Unavailable [phone] Reason for Visit * Reason Comments Medicare Annual Wellness Visit Initial Encounter Details Date Type Department Care Team (Late st Contact Info) Description 01/26/2025 6:00 PM EDT Office Visit [facility] [address] [place] [address] Mckayla Blas, MANUAL ARTS THERAPIST [address] [place] [phone] Encounter for subsequent annual wellness visit (AWV) in Medicare patient (Primary Dx); Mixed hyperlipidemia ; Type 2 diabetes mellitus with complication, with long-term current use of insulin ([facility]); Bilateral lower extremity edema; Gastro-esophageal reflux disease without esophagitis; Chronic diastolic heart failure (HCC); Primary hypertension ; Pulmonary hypertension ([facility]); Diabetic polyneuropathy associated with type 2 diabetes mellitus (HCC); Pulmonary emphysema, unspecified emphysema type (HCC); Moderate persistent asthma without complication ([facility]); Insomnia; Non-seasonal allergic rhinitis, unspecified trigger; Type 2 diabetes mellitus with unspecified complications (HCC); Anxiety and depression ; Antibiotic-induced yeast infection; Chronic obstructive pulmonary disease, unspecified (HCC); Hyperlipidemia, unspecified ; Vaginal yeast infection; Morbid (severe) obesity due to excess calories ([facility]) Social History Tobacco Use Types Packs/Day Years [...] How often do you attend chur or mosque services? More than 4 times per year 08/26/2024 Do you belong to any clubs o r organizations such as hoahaoism groups, unions, fraternal or athletic groups, or [...] Date Recorded Patient Health Questionnaire-2 Score 0 01/26/2025 [facility] - Occupational [...] in a custodial (including now)? No 07/10/2023 Housing Stability Vital Sign Answer Wilmer e Recorded In the last 12 months, was t here a time when you were not able to pay the mortgage or rent on time? No 08/26/2024 Number of Times Moved in the Last Year Not on fi le 08/26/2024 At any time in the past 12 m [facility], were you homeless or living in a custodial (including now)? No 08/26/2024 Comments Unknown Sex and Gender Information Value Date Recorded Sex Assigned at Not on file Legal Sex Female 6:50 PM EDT Gender Identity Not on file Sexual Orientation Not on file documented as of this encounter Last Filed Vital Signs Vital Sign Reading Time Taken Comments Blood Pressure 126/82 01/26/2025 6:11 PM EDT Pulse 81 01/26/2025 6:11 PM EDT Temperature 36.9 C (98.5 F) 01/26/2025 6:11 PM EDT Respiratory Rate 20 01/26/2025 6:11 PM EDT Oxygen Saturation 90% 01/26/2025 6:11 PM EDT Inhaled Oxygen Concentration - - Weight 170 kg (374 lb 6.4 oz) 01/26/2025 6:11 PM EDT Height - - Body Mass Index 58.64 10/27/2024 2:11 PM EDT documented in this encounter Functional Status * Over the past 2 weeks, how often have you been bothered by any of the following problems? Question Answer Date of Assessment Author Little interest or pleasure in doing things Not at all 01/26/2025 6:14 PM EDT CECELIA ROLON Feeling down, depressed, or hopeless Not at all 01/26/2025 6:14 PM EDT CECELIA ROLON Patient Health Questionnaire -2 Score 0 01/26/2025 6:14 PM EDT CECELIA ROLON * Question Answer Date of Assessment Author Patient Health Questionnaire-9 Score 1 01/07 4:13 PM EDT Mychart, Generic * Trouble falling or staying asleep, or sleeping too much Answer Date of Assessment Author Not at all 01/26/2025 4:13 PM EDT Mychart, Generic * Feeling tired or having little energy Answer Date of Assessment Author Not at all 01/26/2025 4:13 PM EDT Mychart, Generic * Poor appetite or overeating Answer Date of Assessment Author Not at all 01/26/2025 4:13 PM EDT Mychart, Generic * Feeling bad about yourself - or that you are a failure or have let yourself or your family down Answer Date of Assessment Author Not at all 01/26/2025 4:13 PM EDT Mychart, Generic * Trouble concentrating on things, such as reading the newspaper or watching television Answer Date of Assessment Author Not at all 01/26/2025 4:13 PM EDT Mychart, Generic * Moving or speaking so slowly that other people could have noticed? Or the opposite - being so fidgety or restless that you have been moving around a lot more than usual. Answer Date of Assessment Author Not at all 01/26/2025 4:13 PM EDT Mychart, Generic * Thoughts that you would be better off or hurting yourself in some way Answer Date of Assessment Author Not at all 01/26/2025 4:13 PM EDT Mychart, Generic documented as of this encounter Patient Instructions * Patient Instructions* Mckayla Blas NP - 01/26/2025 6:00 PM EDT Please call the [facility] to schedule your mammogram: [phone]- ext [phone] documented in this encounter Progress Notes * Mckayla Blas NP - 01/26/2025 6:46 PM EDTAssociated Problem(s): Anxiety and depression Current meds: elavil, duloxtine, * Mckayla Blas NP - 01/26/2025 6:46 PM EDTAssociated Problem(s): Morbid (severe) obesity due to excess calories ([facility]) Discussed with patient their BMI (actual, verses [...] for DM * Mckayla Blas NP - 01/26/2025 6:46 PM EDTAssociated Problem(s): Bilateral lower extremity edema Limit sodium , elevate legs, furosemide * Mckayla Blas NP - 01/26/2025 6:46 PM EDTAssociated Problem(s): Vaginal yeast infection Secondary to double atb for now * Mckayla Blas NP - 01/26/2025 6:44 PM EDTAssociated Problem(s): Asthma (HCC) Current meds: albuterol, duoneb, 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 Mitzi Macias is a 54 y.o. female presents with chief complaint of Medicare Annual Wellness VisitInitial HPI: Diet:tries to stay balanced Activity:- limited d/t chronic pain and obesity Mental Health Concerns:depression/anxiety: stable Falls in the last year:no Still driving:no Do you pay your bills:yes Any hearing problems:intermittent ringing in ears Any Vision problems: no Any Hospitalizations in the last year:yes Specialist: wound care, pulmonary, cardiology, pain mgmt, endo HCPOA/Living Will:yes Concerns: SUBJECTIVE: MEDICATIONS: Current Outpatient Medications Medication Instructions [...] chew. ergocalciferol (VITAMIN D2) 1.25 mg, Oral, Weekly fluconazole (Diflucan) 150 MG tablet One time dose, repeat in 3 days . Do not take cholesterol pillwhile taking this medication. Once finished then resume furosemide (LASIX) 20 mg, Oral, Daily PRN, Take in the afternoon as needed furosemide (LASIX) 40 mg, Oral, Daily hydrALAZINE (APRESOLINE) 25 mg, Oral, 2 times daily HYDROcodone-acetaminophen ([place]) 5-325 MG tablet 1 tablet, 3 times [...] sulfamethoxazole-trimethoprim (Bactrim DS) 800-160 MG per tablet TAKE 1 TABLET BY MOUTH TWICE A DAYFOR 14 DAYS Tirzepatide (Mounjaro) 15 MG/0.5ML solution auto-injector INJECT 15MG SUBCUTANEOUSLY ONCE A WEEK varenicline (CHANTIX) 1 mg, Oral, 2 times daily, Take with full glass of water. ALLERGIES: No Known Allergies REVIEW OF SYMPTOMS: Review of Systems Constitutional: Negative for appetite change, chills and fever. HENT: Positive for tinnitus. Negative for congestion, ear pain and sore [...] CT Albuminuria 09/17/2023 Angiomyolipoma Anxiety and depression 07/10/2023 Asthma ([facility]) 07/10/2023 Body mass index (BMI) 50.0-59.9, adult ([facility]) Cellulitis of left lower extremity Cervical cancer ([facility]) 09/17/2023 Chronic pain of both knees 09/17/2023 COPD (chronic obstructive pulmonary disease) ([facility]) 07/10/2023 COPD exacerbation ([facility]) 09/17/2023 Decreased functional mobility 09/17/2023 Diabetic neuropathy ([facility]) 07/10/2023 Dietary counseling and surveillance Edema 07/10/2023 Elevated sed rate Elevated WBC count Essential (primary) hypertension GERD (gastroesophageal reflux disease) 09/17/2023 Hyperlipidemia 09/17/2023 Hypertension 07/10/2023 Insomnia 09/17/2023 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 ([facility]) Lower extremity edema 09/17/2023 Mixed hyperlipidemia Morbid (severe) obesity due to excess calories ([facility]) Obstructive sleep apnea 07/10/2023 PAD (peripheral artery disease) 09/17/2023 Pancreatitis ([facility]) 09/17/2023 Pneumonia 09/17/2023 Proteinuria, unspecified Pulmonary hypertension ([facility]) 09/17/2023 Radiculopathy, lumbar region 09/17/2023 Tobacco user 09/17/2023 Type 2 diabetes mellitus with complication, with long-term current use of insulin ([facility]) 07/10/2023 Unilateral primary osteoarthritis, right hip [...] her father's sister. OBJECTIVE: Visit Vitals BP 126/82 (BP Location: Left arm, Patient Position: Sitting, BP Cuff Size: Large adult) Pulse 81 Temp 98.5 ??F (Temporal) Resp 20 Wt 374 lb 6.4 oz SpO2 90% BMI 58.64 kg/m?? Smoking Status Every Day BSA 2.83 m?? Physical Exam Vitals and nursing note reviewed. Constitutional: General: She is not in acute distress. Appearance: Normal appearance. She is obese. She is not ill-appearing. HENT: Head: Normocephalic and atraumatic. Right Ear: Tympanic membrane, ear canal and external ear normal. Left Ear: Tympanic membrane, ear canal and external ear normal. Nose: Nose normal. Mouth/Throat: Mouth: Mucous membranes are moist. Pharynx: No oropharyngeal exudate or posterior oropharyngeal erythema. Eyes: Extraocular Movements: Extraocular movements intact. Conjunctiva/sclera: Conjunctivae normal. Cardiovascular: Rate and Rhythm: Normal rate and regular rhythm. Pulses: Normal pulses. Heart sounds: Normal heart sounds. No murmur heard. Pulmonary: Effort: Pulmonary effort is normal. Breath sounds: Wheezing (few faint exp, scattered) present. Abdominal: General: Bowel sounds are normal. There is no distension. Palpations: Abdomen is soft. There is no mass. Tenderness: There is no abdominal tenderness. Musculoskeletal: General: Normal range of motion. Cervical back: Normal range of motion and neck supple. Right lower leg: Edema present. Left lower leg: Edema present. Lymphadenopathy: Cervical: No cervical adenopathy. Skin: Capillary Refill: Capillary refill takes 2 to 3 seconds. Findings: No rash. Comments: Bilat legs with wraps Dressing to RLE, under care of wound care for this Neurological: General: No focal deficit present. Mental Status: She is alert and oriented to person, place, and time. Psychiatric: Mood and Affect: Mood normal. Behavior: Behavior normal. Thought Content: Thought content normal. Judgment: Judgment normal. ASSESSMENT AND PLAN: No follow-ups on file. Problem List Items Addressed This Visit Diabetic neuropathy (HCC) Continue with lyangelito pain mgmt is prescribing OARRS reviewed Fu in 3 months Goal: tighter glucose control, this has been improving, latest A1c is 7.4%!!! 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 Hypertension Please check blood pressure daily and record DASH diet Limit caffeine Take medication as directed Contact office if chest pain, pressure, dizziness, shortness of breath, swelling legs Recommend slow position changes Current meds: hydralazine, lisinopril, Relevant Medications hydrALAZINE (Apresoline) 25 MG tablet lisinopril 20 MG tablet Type 2 diabetes mellitus with complication, with long-term current use of insulin (HCC) Check blood sugars daily, notify if <70 [...] statin, tricia romero Most recent A1c is 7.2% on 10/08/2024 Under the care of dr odonnell for mgmt of DM Complications: DN, nephropathy, leg ulcers Relevant Medications aspirin 81 MG chewable tablet Anxiety and depression Current meds: elavil, duloxtine, Relevant Medications DULoxetine (Cymbalta) [address] tanja Bilateral lower extremity edema Limit sodium , elevate legs, furosemide Relevant Medications furosemide (Lasix) 20 MG tablet furosemide (Lasix) 40 MG tablet potassium chloride ER (Micro-K) 10 MEQ ER capsule Vaginal yeast infection Secondary to double atb for now Insomnia elavil Relevant Medications amitriptyline (Elavil) 25 MG tablet Pulmonary hypertension (HCC) Has seen [facility] Cardiology Hyperlipidemia On statin therapy Check labs yearly and prn dose changes Non-seasonal allergic rhinitis Relevant Medications cetirizine (ZyrTEC) 10 MG tablet Encounter for subsequent annual wellness visit (AWV) in Medicare patient - Primary I have reviewed Ht/Wt/BMI, I have reviewed recommended vaccines for patient's age, as well as all recommended screenings I have reviewed available care everywhere notes as well. I have recommended eating a balanced diet,as well as activity as chronic conditions allow It is recommended that the patient have a yearly eye exam, as well as twice a year dental exams Fu in this office for wellness on a yearly basis Morbid (severe) obesity due to excess calories ([facility]) Discussed with patient their BMI (actual, verses [...] mounjaro for DM Chronic diastolic heart failure (HCC) Current meds; asa, farxiga, lasix, hydralazine, lisinopril, Follows with [facility] Reviewed 01/06/25 notes Antibiotic-induced yeast infection Relevant Medications fluconazole (Diflucan) 150 MG tablet Gastro-esophageal reflux disease without esophagitis Recommendations: freq small meals, nothing to eat or drink at least 2 hours prior to bed, limit caffeine, alcohol, as well as spicy foods Meds to limit or avoid if possible: NSAIDS Elevate HOB if possible Current meds: ompeprazole Relevant Medications omeprazole (PriLOSEC) [address] capsule Other Visit Diagnoses Type 2 diabetes mellitus with unspecified complications (HCC) Relevant Medications dapagliflozin (Farxiga) 10 MG Chronic obstructive pulmonary disease, unspecified (HCC) Relevant Medications Roflumilast 500 MCG tablet Hyperlipidemia, unspecified Relevant Medications simvastatin (Zocor) 10 MG tablet * Mckayla Blas NP - 01/26/2025 7:53 AM EDTAssociated Problem(s): Diabetic neuropathy (HCC) Continue with cintia hudson is prescribing OARRS reviewed Fu in 3 months Goal: tighter glucose control, this has been improving, latest A1c is 7.4%!!! * Mckayla Blas NP - 01/26/2025 7:52 AM EDTAssociated Problem(s): Pulmonary hypertension (HCC) Has seen [facility] Cardiology * Mckayla Blas NP - 01/26/2025 7:52 AM EDTAssociated Problem(s): Hypertension Please check blood pressure daily and record DASH diet Limit caffeine Take medication as directed Contact office if chest pain, pressure, dizziness, shortness of breath, swelling legs Recommend slow position changes Current meds: hydralazine, lisinopril, * Mckayla Blas NP - 01/26/2025 7:51 AM EDTAssociated Problem(s): Chronic diastolic heart failure (HCC) Current meds; asa, farxiga, lasix, hydralazine, lisinopril, Follows with [facility] Reviewed 01/06/25 notes * Mckayla Blas NP - 01/26/2025 7:51 AM EDTAssociated Problem(s): Gastro- esophageal reflux disease without esophagitis Recommendations: freq small meals, nothing to eat or drink at least 2 hours prior to bed, limit caffeine, alcohol, as well as spicy foods Meds to limit or avoid if possible: NSAIDS Elevate HOB if possible Current meds: ompeprazole * Mckayla Blas NP - 01/26/2025 7:50 AM EDTAssociated Problem(s): Type 2 diabetes mellitus with complication, with long-term current use of insulin (HCC) Check blood sugars daily, notify if <70 [...] Most recent A1c is 7.2% on 10/08/2024 Under the care of dr odonnell for mgmt of DM Complications: DN, nephropathy, leg ulcers * Mckayla Blas NP - 01/26/2025 7:49 AM EDTAssociated Problem(s): Hyperlipidemia On statin therapy Check labs yearly and prn dose changes * Mckayla Blas NP - 01/26/2025 7:49 AM EDTAssociated Problem(s): Encounter for subsequent annual wellness visit (AWV) in Medicare patient I have reviewed Ht/Wt/BMI, I have reviewed recommended vaccines for patient's age, as well as all recommended screenings I have reviewed available care everywhere notes as well. I have recommended eating a balanced diet,as well as activity as chronic conditions allow It is recommended that the patient have a yearly eye exam, as well as twice a year dental exams Fu in this office for wellness on a yearly basis documented in this encounter Plan of Treatment Upcoming Encounters Date Type Department Care Team (Late st Contact Info) Description 01/29/2025 9:40 AM EDT Office Visit [facility] [address] [place] [address] Rain Odonnell MD [address] [place] [address] 04/29/2025 6:00 PM EDT Office Visit [facility] [address] [place] [phone] Mckayla Blas NP [address] [place] [phone] 02/01/2026 6:00 PM EDT Office Visit [facility] [address] [place] [phone] Mckayla Blas NP [address] [place] [address] documented as of this encounter Visit Diagnoses Diagnosis Encounter for subsequent annual wellness visit (AWV) in Medicare patient- Primary Mixed hyperlipidemia Mixed hyperlipidemia Type 2 diabetes mellitus with complication, with long-term current use of insulin ([facility]) Bilateral lower extremity edema Gastro-esophageal reflux disease without esophagitis Chronic diastolic heart failure (HCC) Chronic diastolic heart failure Primary hypertension Unspecified essential hypertension Pulmonary hypertension (HCC) Other chronic pulmonary heart diseases Diabetic polyneuropathy associated with type 2 diabetes mellitus ([facility]) Pulmonary emphysema, unspecified emphysema type ([facility]) Moderate persistent asthma without complication ([facility]) Insomnia Insomnia, unspecified Non-seasonal allergic rhinitis, unspecified trigger Type 2 diabetes mellitus with unspecified complications (HCC) Anxiety and depression Antibiotic-induced yeast infection Chronic obstructive pulmonary disease, unspecified (HCC) Hyperlipidemia, unspecified Vaginal yeast infection Candidiasis of vulva and vagina Morbid (severe) obesity due to excess calories ([facility]) documented in this encounter Additional Health Concerns Assessment Noted Time PHQ-9 Depression Total Score: 3 01/17/20 24 10:08 AM EDT documented as of this encounter Care Teams Engine Builder Relationship Specialty Start Date End Date Ty Amin MD [address] [place] [address] PCP - General Family Medicine 09/20/23 Mckayla Blas NP [address] [place] [address] Nurse Practitioner Family Medicine 09/20/23 documented as of this encounter
--- OUTSIDE RECORDS SUMMARY | 2025-01-28 14:04 | XMS_ITS | Encounter Summary ---
Author Organization [facility] tem Address [id number] [address] [place] [address] Care Team Providers Care Dean Name Role Phone JuanjoseMckayla carcamo Krystal PEREZN-ROUND KILN DRAWER Primary Care Provider Encounter Details Date Type Department Care Team (Late st Contact Info) Description 05/31/2020 Orders Only [facility] [address] [place] [address] External, Scanning Provider Social History Tobacco Use [...] on filedocumented in this encounter Care Teams Dean Relationship Specialty Start Date End Date Mckayla Blas, MANAGER ELECTRICAL-ROUND KILN DRAWER [address] [place] [address] PCP - General Nurse Practitioner 09/25/18 documented as of this encounter
--- OUTSIDE RECORDS SUMMARY | 2025-01-28 14:04 | XMS_ITS | Encounter Summary ---
Author Organization [employer] Address [id number] [address] [place] [address] Care Team Providers Care Senior Storage Engineer Name Role Phone JuanjoseMckayla carcamo Krystal SUPERVISOR ROD PLACING-CLOCK SMITH Primary Care Provider Encounter Details Date Type Department Care Team (Late st Contact Info) Description 05/31/2020 Orders Only [facility] [address] [place] [address] External, Scanning Provider Social History Tobacco Use [...] ECG ORDERABLES Final Result Performing Organization Address [facility] Co de Phone Number MANUALLY TRANSCRIBED [...] ECG ORDERABLES Final Result Performing Organization Address [facility] Co de Phone Number MANUALLY TRANSCRIBED RESULTS * Pulmonary function test (10/24/2018) us Scanning Provider External PFT ORDERABLES Final Result Performing Organization Address [facility] Co de Phone Number MANUALLY TRANSCRIBED RESULTS * Nuc stress Lexiscan/Exercise (12/12/2016) Anatomical Region Laterality Modality Chest N/A Nuclear Medicine us Scanning Provider External CV STRESS ORDERABLES Final Result documented in this encounter Visit Diagnoses Not on filedocumented in this encounter Care Teams Senior Storage Engineer Relationship Specialty Start Date End Date Mckayla Blas, SUPERVISOR ROD PLACING-CLOCK SMITH [address] [place] [address] PCP - General Nurse Practitioner 09/25/18 documented as of this encounter
--- OUTSIDE RECORDS SUMMARY | 2025-01-28 14:04 | XMS_ITS | Encounter Summary ---
Author Organization [facility] Address [address] [place] [address] Care Team Providers Care Supervisor Wall Mirror Department Name Role Phone Ty Amin MD Primary Care Provider [phone] Mckayla Blas PLANE TENDER Unavailable [phone] Mckayla Blas PLANE TENDER Unavailable [phone] Encounter Details Date Type Department Care Team (Late st Contact Info) Description 07/14/2024 Orders Only [facility] [address] [place] [address] Mckayla Blas PLANE TENDER [address] [place] [address] Social History Tobacco Use Types Packs/Day Years [...] Recorded Patient Health Questionnaire-2 Score 1 01/17/2024 [facility]at ional Health - Occupational [...] place to sleep or slept in a group home (including now)? No 07/10/2023 Comments Unknown Sex and Gender Information Value Date Recorded Sex Assigned at Not on file Legal Sex Female 6:50 PM EDT Gender Identity Not on file Sexual Orientation Not on file documented as of this encounter Plan of Treatment Upcoming Encounters Date Type Department Care Team (Late st Contact Info) Description 01/29/2025 9:40 AM EDT Office Visit [facility] [address] [place] [address] Rain Souza MD [address] [place] [address] 04/29/2025 6:00 PM EDT Office Visit [facility] [address] [place] [address] Mckayla Blas PLANE TENDER [address] [place] [address] 02/01/2026 6:00 PM EDT Office Visit [facility] [address] [place] [address] Mckayla Blas NP [address] [place] [address] documented as of this encounter Procedures Procedure [...] documented as of this encounter Care Teams Supervisor Wall Mirror Department Relationship Specialty Start Date End Date Ty Amin MD [address] [place] [address] PCP - General Family Medicine 09/20/23 Mckayla Blas NP [address] [place] [address] PCP - [facility] 09/07/23 01/11/25 Mckayla Blas NP [address] [place] [address] Nurse Practitioner Family Medicine 09/20/23 documented as of this encounter
--- OUTSIDE RECORDS SUMMARY | 2025-01-28 14:04 | XMS_ITS | Encounter Summary ---
Author [facility] Address [id number] [address] [place] [address] Care Team Providers Care Pneumatic Tester Name Role Phone Mckayla Blas APRN-NIGHT BAKER Primary Care Provider Encounter Details Date Type Department Care Team (Late st Contact Info) Description 05/03/2020 [facility]phone [facility] [address] [place] [address] Tramaine Romero [address], [address] [id number] Social History Tobacco Use Types Packs/Day Years [...] on filedocumented in this encounter Care Teams Pneumatic Tester Relationship Specialty Start Date End Date Mckayla Blas APR[place] [address] PCP - General Nurse Practitioner 09/25/18 documented as of this encounter
--- OUTSIDE RECORDS SUMMARY | 2025-01-28 14:04 | XMS_ITS | Encounter Summary ---
Author Organization [facility] Address [address] [place] [address] Care Team Providers Care Public Relations Coordinator Name Role Phone Ty Amin MD Primary Care Provider [phone] Mckayla Blas NP Unavailable [phone] Mckayla Blas NP Unavailable [phone] Encounter Details Date Type Department Care [...] often do you attend chur ch or rastafari services? 1 to 4 times per year [...] Recorded Patient Health Questionnaire-2 Score 1 01/17/2024 [facility] of Occupat ional Health - Occupational Stress [...] health care facility (including now)? No 07/10/2023 Comments Unknown Sex [...] Visit [facility] [address] [place] [address] Rain Souza MD [address] [place] [address] 04/29/2025 6:00 PM EDT [facility] Visit [facility] [address] [place] [address] Mckayla Blas NP [address] [place] [address] 02/01/2026 6:00 PM EDT [facility] Visit [facility] [address] [place] [address] Mckayla Blas NP [address] [place] [address] documented as of this encounter Procedures Procedure Name Priority Date/Time Associated Diagnosis Comments MR LUMBAR SPINE WO CON 05/12/2024 2:41 PM EST documented in this encounter Results * MR LUMBAR SPINE WO CON (05/12/2024 2:41 PM EST) Anatomical Region Laterality Modality Other 05/12/2024 2:41 PM EST Narrative 05/12/2024 2:43 [place] [address] Magnetic Resonance Report Signed Patient: MITZI MACIAS MR#: [id number] : 1970 Acct:[id number] Age/Sex: 53 / F ADM Date: 05/12/24 Loc: MRI Attending Dr: Angela Chin NP Ordering Physician: Angela Chin NP Date of Service: 05/12/24 Procedure(s): MR lumbar spine wo con Accession Number(s): [id number] cc: Mckayla Blas DOUBLE END PRODUCTION GRINDER; Angela Chin NP [place] [address] Patient Name: MITZI MACIAS MRN: [id number] date: 1970 Sex: F Assigned Patient Location: MRI Current Patient Location: CT Accession/Order Number: [id number] Exam Date: 05/12/2024 09:21 Report Date: 05/12/2024 [...] Gardner M.D. Signed By: 05/12/24 1443 DD/ 144 TD/TT: Time Broker: Procedure Note Radiology, Radiologist, MD - 05/12/2024 [place] [address] Magnetic Resonance Report Signed Patient: MITZI MACIAS R#: [id number] : 1970Acct:[id number] Age/Sex: 53 / FADM Date: 05/12/24 Loc: MRI Attending Dr: Angela Chin NP Ordering Physician: Angela Chin NP Date of Service: 05/12/24 Procedure(s): MR lumbar spine wo con Accession Number(s): [id number] cc: Mckayla Blas NP; Angela Chin NP The [address] [address] Patient Name: MITZI MACIAS MRN: [facility]:[id number] date: 1970 Sex: F Assigned Patient Location: MRI Current Patient Location: CT Accession/Order Number: [id number] Exam Date: 05/12/2024 09:21 Report Date: 05/12/2024 [...] Maryanne Gardner M.D. Signed By:05/12/24 1443 DD/ 1441 TD/TT: Time Broker: us Generic External Data Provider [facility] Final Result documented in this encounter Visit Diagnoses Not on filedocumented in this encounter Additional Health Concerns Assessment Noted Time PHQ-9 Depression Total Score: 3 01/17/20 24 10:08 AM EDT documented as of this encounter Care Teams Public Relations Coordinator Relationship Specialty Start Date End Date Ty Amin MD [address] [place] [address] PCP - General Family Medicine 09/20/23 Mckayla Blas NP [address] [place] [address] PCP - [facility] 09/07/23 01/11/25 Mckayla Blas NP [address] [place] [address] Nurse Practitioner Family Medicine 09/20/23 documented as of this encounter
--- OUTSIDE RECORDS SUMMARY | 2025-01-28 14:04 | XMS_ITS | Encounter Summary ---
Author Organization [facility] Address [id number] [address] [place] [address] Care Team Providers Care Stock Letterer Name Role Phone JuanjoseMckayla carcamo Krystal DESIGN PRINTER BALLOON-PODODERMATOLOGIST Primary Care Provider Encounter Details Date Type Department Care Team (Late st Contact Info) Description 06/11/2020 Orders Only [facility] [address] [place] [address] External, Scanning Provider Social History Tobacco Use [...] on filedocumented in this encounter Care Teams Stock Letterer Relationship Specialty Start Date End Date Mckayla Blas, DESIGN PRINTER BALLOON-PODODERMATOLOGIST [address] [place] [address] PCP - General Nurse Practitioner 09/25/18 documented as of this encounter
--- OUTSIDE RECORDS SUMMARY | 2025-01-28 14:04 | XMS_ITS | Encounter Summary ---
Author Organization [facility] Address [address] [place] [address] Care Team Providers Care Stage Producer Name Role Phone Ty Amin MD Primary Care Provider [phone] Mckayla Blas PROFESSOR OF EDUCATION Unavailable [phone] Mckayla Blas PROFESSOR OF EDUCATION Unavailable [phone] Encounter Details Date Type Department Care Team (Late st Contact Info) Description 01/07/2025 Abstract [facility] [address] [place] [address] Mckayla Blas NP [address] [place] [address] Social History Tobacco Use Types [...] often do you attend chur ch or holiness services? More than 4 times per year [...] place to sleep or slept in a chcf (including now)? No 07/10/2023 Housing Stability Vital Sign Answer Wilmer e Recorded In the last 12 months, was t here a time when you were not able to pay the mortgage or rent on time? No 08/26/2024 Number of Times Moved in the Last Year Not on fi le 08/26/2024 At any time in the past 12 m [facility], were you homeless or living in a chcf (including now)? No 08/26/2024 Comments Unknown Sex [...] [facility] [address] [place] [address] Rain Souza MD [address] [place] [address] 04/29/2025 6:00 PM EDT Office Visit [facility] [address] [place] [address] Mckayla Blas, SILVANO [address] [place] [address] 02/01/2026 6:00 PM EDT Office Visit [facility] [address] [place] [address] Mckayla Blas, SILVANO [address] [place] [address] documented as of this encounter Visit Diagnoses Not on filedocumented in this encounter Additional Health Concerns Assessment Noted Time PHQ-9 Depression Total Score: 3 01/17/20 24 10:08 AM EDT documented as of this encounter Care Teams Stage Producer Relationship Specialty Start Date End Date Ty Amin MD [address] [place] [address] PCP - General Family Medicine 09/20/23 Mckayla Blas NP [address] [place] [address] PCP - [facility] 09/07/23 01/11/25 Mckayla Blas NP [address] [place] [address] Nurse Practitioner Family Medicine 09/20/23 documented as of this encounter
--- OUTSIDE RECORDS SUMMARY | 2025-01-28 14:04 | XMS_ITS | Encounter Summary ---
Author Organization [facility] Address [address] [place] [address] Care Team Providers Care Test Driller Name Role Phone Ty Amin MD Primary Care Provider [phone] Mckayla Blas NP Unavailable [phone] Mckayla Blas NP Unavailable [phone] Encounter Details Date Type Department Care Team (Late st Contact Info) Description 05/12/2024 Orders Only [facility] [address] [place] [address] Angela Cochran NP [address] [place] [address] Social History Tobacco Use Types [...] any clubs o r organizations such as rastafari groups, unions, fraternal or athletic groups, or [...] 1 01/17/2024 [facility] - Occupational Stress Questionnaire Answer Date [...] [facility] [address] [place] [address] Rain Souza MD [address] [place] [address] 04/29/2025 6:00 PM EDT Office Visit [facility] [address] [place] [address] Mckayla Blas NP [address] [place] [address] 02/01/2026 6:00 PM EDT Office Visit [facility] [address] [place] [address] Mckayla Blas NP [address] [place] [address] documented as of this encounter Procedures Procedure Name Priority Date/Time Associated Diagnosis Comments MR LUMBAR SPINE WO CONTRAST Routine 05/12/2024 3:27 PM EST documented in this encounter Results * MR lumbar spine wo contrast (05/12/2024 3:27 PM EST) Anatomical Region Laterality Modality Spine, L-spine Magnetic Resonan ce Angela BLACKMAN MRI PROCEDURES Final Result documented in this encounter Visit Diagnoses Not on filedocumented in this encounter Additional Health Concerns Assessment Noted Time PHQ-9 Depression Total Score: 3 01/17/20 24 10:08 AM EDT documented as of this encounter Care Teams Test Driller Relationship Specialty Start Date End Date Ty Amin MD [address] [place] [address] PCP - General Family Medicine 09/20/23 Mckayla Blas NP [address] [place] [address] PCP - [facility] 09/07/23 01/11/25 Mckayla Blas NP [address] [place] [address] Nurse Practitioner Family Medicine 09/20/23 documented as of this encounter
--- OUTSIDE RECORDS SUMMARY | 2025-01-28 14:04 | XMS_ITS | Encounter Summary ---
Author Organization [facility] Address [address] [place] [address] Care Team Providers Care Director Of Infection Prevention Name Role Phone Ty Amin MD Primary Care Provider [phone] Mckayla Blas NP Unavailable [phone] Mckayla Blas NP Unavailable [phone] Encounter Details Date Type Department Care [...] often do you attend chur ch or temple services? 1 to 4 times per year 07/10/2023 Do you belong to any clubs o r organizations such as buddhist groups, unions, fraternal or athletic groups, or [...] Health Questionnaire-2 Score 1 01/17/2024 [facility] of Occupat ional Health - Occupational [...] Visit [facility] [address] [place] [address] Rain Souza MD [address] [place] [address] 04/29/2025 6:00 PM EDT Office Visit [facility] [address] [place] [address] Mckayla Blas NP [address] [place] [address] 02/01/2026 6:00 PM EDT Office Visit [facility] [address] [place] [address] Mckayla Blas NP [address] [place] [address] documented as of this encounter Procedures Procedure Name Priority Date/Time Associated Diagnosis Comments CT ABDOMEN PELVIS W CON 05/12/2024 2:16 PM EST documented in this encounter Results * CT ABDOMEN PELVIS W CON (05/12/2024 2:16 PM EST) Anatomical Region Laterality Modality Other 05/12/2024 2:16 PM EST Narrative 05/12/2024 2:19 [place] [address] CT Scan Report Signed Patient: MITZI MACIAS MR#: [id number] : 1970 Acct:[id number] Age/Sex: 53 / F ADM Date: 05/12/24 Loc: CT Attending Dr: Sarah MAYERS Ordering Physician: Sarah Vega Date of Service: 05/12/24 Procedure(s): CT abdomen pelvis w con Accession Number(s): [id number] cc: Mckayla Blas NP [address] [address] Patient Name: MITZI MACIAS MRN: [id number] date: 1970 Sex: F Assigned Patient Location: CT Current Patient Location: Accession/Order Number: [id number] Exam Date: 05/12/2024 11:15 Report Date: 05/12/2024 [...] Signed By: 05/12/24 1419 DD/ 1416 TD/TT: Merchandise Flow Associate: Procedure Note Radiology, Radiologist, MD - 05/12/2024 [place] [address] CT Scan Report Signed Patient: MITZI MACIAS LMR#: [id number] : 1970Acct:[id number] Age/Sex: 53 / FADM Date: 05/12/24 Loc: CT Attending Dr: Sarah MAYERS Ordering Physician: Sarah Vega Date of Service: 05/12/24 Procedure(s): CT abdomen pelvis w con Accession Number(s): [id number] cc: Mckayla Blas NP [facility] [place] [id number] Patient Name: MITZI MACIAS MRN: [facility]:[id number] date: 1970 Sex: F Assigned Patient Location: CT Current Patient Location: Accession/Order Number: [id number] Exam Date: 05/12/2024 11:15 Report Date: 05/12/2024 [...] M.D. Signed By:05/12/24 1419 DD/ 1416 TD/TT: Merchandise Flow Associate: us Generic External Data Provider [facility] Final Result documented in this encounter Visit Diagnoses Not on filedocumented in this encounter Additional Health Concerns Assessment Noted Time PHQ-9 Depression Total Score: 3 01/17/20 24 10:08 AM EDT documented as of this encounter Care Teams Director Of Infection Prevention Relationship Specialty Start Date End Date Ty Amin MD [address] [place] [address] PCP - General Family Medicine 09/20/23 Mckayla Blas NP [address] [place] [address] PCP - [facility] 09/07/23 01/11/25 Mckayla Blas NP [address] [place] [address] Nurse Practitioner Family Medicine 09/20/23 documented as of this encounter
--- OUTSIDE RECORDS SUMMARY | 2025-01-28 14:04 | XMS_ITS | Encounter Summary ---
Author Organization [facility] Address [address] [place] [address] Care Team Providers Care Wall Taper Helper Name Role Phone Ty Amin MD Primary Care Provider [phone] Ty Amin MD Primary Care Provider [phone] Mckayla Blas CORPORATE RISK ANALYST Unavailable [phone] Mckayla Blas CORPORATE RISK ANALYST Unavailable [phone] Encounter Details Date Type Department Care Team (Late st Contact Info) Description 09/12/2023 Orders Only [facility] [address] [place] [address] Social History Tobacco Use Types Packs/Day Years [...] How often do you attend chur or episcopal services? 1 to 4 times per year 07/10/2023 Do you belong to any clubs o r organizations such as confucianism groups, unions, fraternal or athletic groups, or [...] Recorded Patient Health Questionnaire-2 Score 2 07/10/2023 [facility] of Occupat ional Health - [...] EDT Office Visit [facility] [address] [place] [address] Rain Souza MD [address] [place] [address] 04/29/2025 6:00 PM EDT Office Visit [facility] [address] [place] [address] Mckayla Blas NP [address] [place] [address] 02/01/2026 6:00 PM EDT Office Visit [facility] [address] [place] [address] Mckayla Blas NP [address] [place] [address] documented as of this encounter Procedures Procedure Name Priority Date/Time Associated Diagnosis Comments XR CHEST 1 VIEW Routine 09/11/2023 4:52 PM EST documented in this encounter Results * XR chest 1 view (09/11/2023 4:52 PM EST) Anatomical Region Laterality Modality Chest Radiographic [facility] IMG XR PROCEDURES Final Result documented in this encounter Visit Diagnoses Not on filedocumented in this encounter Care Teams Wall Taper Helper Relationship Specialty Start Date End Date Ty Amin MD PCP - General Family Medicine 01/05/23 09/19/23 Ty Amin MD [address] [place] [address] PCP - General Family Medicine 09/20/23 Mckayla Blas NP [address] [place] [address] PCP - [facility] 09/07/23 01/11/25 Mckayla Blas NP [address] [place] [address] Nurse Practitioner Family Medicine 09/20/23 documented as of this encounter
--- OUTSIDE RECORDS SUMMARY | 2025-01-28 14:04 | XMS_ITS | Encounter Summary ---
Author Organization [facility] Address [address] [place] [address] Care Team Providers Care Arc Trimmer Name Role Phone Ty Amin MD Primary Care Provider [phone] Ty mAin MD Primary Care Provider [phone] Mckayla Blas LOADING UNIT OPERATOR POWDER CHARGING Unavailable [phone] Mckayla Blas LOADING UNIT OPERATOR POWDER CHARGING Unavailable [phone] Encounter Details Date Type Department Care Team (Late st Contact Info) Description 08/31/2023 Clinisync Result Encounter [facility] External Department Unsolicited Andra Alcala PA [address] [place] [address] [address] [place], [place] [id number] Social History Tobacco Use Types Packs/Day Years [...] often do you attend chur ch or hinduism services? 1 to 4 times per year [...] Recorded Patient Health Questionnaire-2 Score 2 07/10/2023 [facility] Stress Questionnaire [...] [facility] [address] [place] [address] Rain Souza MD [address] [place] [address] 04/29/2025 6:00 PM EDT Office Visit [facility] [address] [place] [address] Mckayla Bals NP [address] [place] [address] 02/01/2026 6:00 PM EDT Office Visit [facility] [address] [place] [address] Mckayla Blas NP [address] [place] [address] documented as of this encounter Procedures Procedure [...] AT 5 DAYS.^NO GROWTH AT 5 DAYS. [facility] 09/10/2023 2:22 PM EST 09/10/2023 2:29 PM EST Narrative [facility] - 09/16/2023 1:07 PM EDT us Generic External Data Provider LAB BLOOD ORDERAB LES Final Result [facility] BLOOD CULTURE 1 (09/10/2023 2:05 PM EST) BLOOD CULTURE 1 Blood Culture 1 NG5D NO GROWTH AT 5 DAYS.^NO GROWTH AT 5 DAYS. TB 09/10/2023 2:05 PM EST 09/10/2023 2:28 PM EST Narrative [facility] - 09/16/2023 1:07 PM EDT Generic External Data Provider LAB BLOOD ORDERAB LES Final [facility] * ECG 12-LEAD (08/31/2023 6:08 PM EST) Anatomical Region Laterality Modality Other 08/31/2023 6:08 PM EST Narrative 09/02/2023 7:32 AM EST [address] [address] Electrocardiograph Report Signed Patient: MITZI MACIAS MR#: [id number] : 1970 Acct:[id number] Age/Sex: 53 / F ADM Date: 08/31/23 Loc: [place] 214-[address]: Jacqueline Becerra D.O. Ordering Physician: Andra Alcala Date of Service: 08/31/23 Procedure(s): ECG 12 lead Accession Number(s): [id number] cc: [facility] Test Date: 2023-08-31 Pat Name: MITZI MACIAS Department: Room: - Gender: Female Covered Buckle Assembler: : 1970 Requested By: MCKAYLA BLAS Order Number: [id number] Reading MD: LAURI DIOR Measurements Intervals [place] Rate: 102 P: 67 WI: 144 QRS: 52 QRSD: 72 T: 49 QT: 326 QTc: 385 Interpretive Statements 1120 Sinus tachycardia 4068 Nonspecific Twave abnormality 8102 Low QRS voltage in chest leads 9140 abnormal rhythm ECG Compared to ECG 12/04/2022 21:27:48 Electronically Signed On 09-02-2023 7:31:43 EST by LAURI DIOR Dictated By: Lauri Dior D.O. Signed By: 09/02/23 0732 DD/ 1808 TD/TT: Show Host: Procedure Note Radiology, Radiologist, - 09/02/2023 [facility] [place] [id number] Electrocardiograph Report Signed Patient: MITZI MACIAS LMR#: [id number] : 1970Acct:[id number] Age/Sex: 53 / FADM Date: 08/31/23 Loc: [place] 214-[address]: Jacqueline Becerra D.O. 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 Signed By:09/02/23 0732 DD/ 1808 TD/TT: Show Host: Andra MAYERS [facility] Final Result documented in this encounter Visit Diagnoses Not on filedocumented in this encounter Care Teams Arc Trimmer Relationship Specialty Start Date End Date Ty Amin MD PCP - General Family Medicine 01/05/23 09/19/23 Ty Amin MD [address] [place] [address] PCP - General Family Medicine 09/20/23 Mckayla Blas NP [address] [place] [address] PCP - [facility] 09/07/23 01/11/25 Mckayla Blas NP [address] [place] [address] Nurse Practitioner Family Medicine 09/20/23 documented as of this encounter
--- OUTSIDE RECORDS SUMMARY | 2025-01-28 14:05 | XMS_ITS | Clinical Summary ---
Author Organization [facility] Address [facility] [id number] [address] [place] [address] Care Team Providers Care Scrap Burner Name Role Phone Wan Mckayla Krystal PEREZN-TREE LOADER MEAT Primary Care Provider Allergies No known active [...] Insurance [place]ICAID [place] [employer] MEDICARE Care Teams Scrap Burner Relationship Specialty Start Date End Date Mckayla Blas APRN-TREE LOADER MEAT [address] [place] [address] PCP - General Nurse Practitioner 09/25/18
--- OUTSIDE RECORDS SUMMARY | 2025-01-28 14:05 | XMS_ITS | Encounter Summary ---
Author Organization [facility] Address [address] [place] [address] Care Team Providers Care Advanced Developer Name Role Phone Ty Amin MD Primary Care Provider [phone] Mckayla Blas PROOF TESTER Unavailable [phone] Mckayla Blas PROOF TESTER Unavailable [phone] Encounter Details Date Type Department Care Team (Late st Contact Info) Description 01/07/2025 Abstract [facility] [address] [place] [address] Mckayla Blas NP [address] [place] [address] Social History Tobacco Use Types [...] often do you attend chur ch or samaritan services? More than 4 times per year 08/26/2024 Do you belong to any clubs o r organizations such as mu-ism groups, unions, fraternal or athletic groups, or [...] Recorded Patient Health Questionnaire-2 Score 1 01/17/2024 [facility] of Occupat ional Health - Occupational [...] any time in the past 12 m [facility], were you homeless or living in [...] ENDOCRINOLOGY [address] [place] [address] Rain Souza MD [address] [place] [address] 04/29/2025 6:00 PM EDT Office Visit [facility] [address] [place] [address] Mckayla Blas, SILVANO [address] [place] [address] 02/01/2026 6:00 PM EDT Office Visit [facility] [address] [place] [address] Mckayla Blas, SILVANO [address] [place] [address] documented as of this encounter Visit Diagnoses Not on filedocumented in this encounter Additional Health Concerns Assessment Noted Time PHQ-9 Depression Total Score: 3 01/17/20 24 10:08 AM EDT documented as of this encounter Care Teams Advanced Developer Relationship Specialty Start Date End Date Ty Amin MD [address] [place] [address] PCP - General Family Medicine 09/20/23 Mckayla Blas NP [address] [place] [address] PCP - [facility] 09/07/23 01/11/25 Mckayla Blas NP [address] [place] [address] Nurse Practitioner Family Medicine 09/20/23 documented as of this encounter
--- OUTSIDE RECORDS SUMMARY | 2025-01-28 14:05 | XMS_ITS | Encounter Summary ---
Author Organization [facility] Address [address] [place] [address] Care Team Providers Care Class A Regional Truck Driver Name Role Phone Ty Amin MD Primary Care Provider [phone] Mckayla Blas NP Unavailable [phone] Encounter Details Date Type Department Care Team (Latest Contact Info) Description 01/19/2025 Travel Social History Tobacco Use Types Packs/Day [...] How often do you attend chur or zoroastrianism services? More than 4 times per year 08/26/2024 Do you belong to any clubs o r organizations such as temple groups, unions, fraternal [...] Recorded Patient Health Questionnaire-2 Score 1 01/17/2024 [facility] of Occupat ional Health - Occupational [...] a skilled nursing (including now)? No 07/10/2023 Housing Stability Vital Sign Answer Wilmer e Recorded In the last 12 months, was t here a time when you were not able to pay the mortgage or rent on time? No 08/26/2024 Number of Times Moved in the Last Year Not on fi le 08/26/2024 At any time in the past 12 m [facility], were you homeless or living in a skilled nursing (including now)? No 08/26/2024 Comments Unknown Sex [...] Visit [facility] [address] [place] [address] Rain Souza MD [address] [place] [address] 04/29/2025 6:00 PM EDT Office Visit [facility] [address] [place] [address] Mckayla Blas NP [address] [place] [address] 02/01/2026 6:00 PM EDT Office Visit [facility] [address] [place] [address] Mckayla Blas NP [address] [place] [address] documented as of this encounter Visit Diagnoses Not on filedocumented in this encounter Additional Health Concerns Assessment Noted Time PHQ-9 Depression Total Score: 3 01/17/20 24 10:08 AM EDT documented as of this encounter Care Teams Class A Regional Truck Driver Relationship Specialty Start Date End Date Ty Amin MD [address] [place] [address] PCP - General Family Medicine 09/20/23 Mckayla Blas NP [address] [place] [address] Nurse Practitioner Family Medicine 09/20/23 documented as of this encounter
--- OUTSIDE RECORDS SUMMARY | 2025-01-28 14:05 | XMS_ITS | Encounter Summary ---
Author Organization [facility] Address [address] [place] [address] Care Team Providers Care Service Worker Helper Name Role Phone Ty Amin MD Primary Care Provider [phone] Mckayla Blas NP Unavailable [phone] Reason for Visit * Reason Onset Date Comments Med Refill 01/16/2025 Encounter Details Date Type Department Care Team (Late st Contact Info) Description 01/16/2025 Refill [facility] [address] [place] [address] Amber Pinzon LPN Vitamin D deficiency, unspecified Social History Tobacco Use Types Packs/Day Years [...] How often do you attend chur or sikhism services? More than 4 times per year [...] 01/17/2024 [facility] of Occupat ionwy Health - Occupational Stress Questionnaire Answer Date [...] in a fpc (including now)? No 07/10/2023 Housing Stability Vital Sign Answer Wilmer e Recorded In the last 12 months, was t here a time when you were not able to pay the mortgage or rent on time? No 08/26/2024 Number of Times Moved in the Last Year Not on fi le 08/26/2024 At any time in the past 12 m [facility], were you homeless or living in a fpc (including now)? No 08/26/2024 Comments Unknown Sex and Gender Information Value Date Recorded Sex Assigned at Not on file Legal Sex Female 6:50 PM EDT Gender Identity Not on file Sexual Orientation Not on file documented as of this encounter Miscellaneous Notes * Telephone Encounter - Amber Pinzon LPN - 01/16/2025 12:31 PM EDT MEDICATION SENT TO PHARMACY. documented in this encounter Plan of Treatment Upcoming Encounters Date Type Department Care Team (Late st Contact Info) Description 01/29/2025 9:40 AM EDT Office Visit [facility] [address] [place] [address] Rain Souza MD [address] [place] [address] 04/29/2025 6:00 PM EDT Office Visit [facility] [address] [place] [address] Mckayla Blas, SILVANO [address] [place] [address] 02/01/2026 6:00 PM EDT Office Visit [facility] [address] [place] [address] Mckayla Blas, SILVANO [address] [place] [address] documented as of this encounter Visit Diagnoses Diagnosis Vitamin D deficiency, unspecified documented in this encounter Additional Health Concerns Assessment Noted Time PHQ-9 Depression Total Score: 3 01/17/20 24 10:08 AM EDT documented as of this encounter Care Teams Service Worker Helper Relationship Specialty Start Date End Date Ty Amin MD [address] [place] [address] PCP - General Family Medicine 09/20/23 Mckayla Blas NP [address] [place] [address] Nurse Practitioner Family Medicine 09/20/23 documented as of this encounter
--- OUTSIDE RECORDS SUMMARY | 2025-01-28 14:05 | XMS_ITS | Clinical Summary ---
Author Organization [facility] Address [address] [place] [address] Care Team Providers Care Biodiesel Engine Specialist Name Role Phone Ty Amin MD Primary Care Provider [phone] Mckayla Blas MENDER HAND Unavailable [phone] Allergies No known active allergies Medications [...] if needed for wheezing. Active HYDROcodone-aceta minophen ([place]) 5-325 MG tablet 1 tablet 3 (three) [...] 24 Active Tirzepatide (Mounjaro) 15 MG/0.5ML solution auto-injectorIndi cations:Type 2 diabetes mellitus with other circulatory complications (HCC) INJECT 15MG SUBCUTANEOUSLY ONCE A WEEK 6 mL 1 07/07/20 24 Active Accu-Chek Guide Test test stripIndications: Type 2 diabetes mellitus with other circulatory complications (HCC) USE TO TEST BLOOD SUGAR 4 TIMES [...] BILATERAL FEET EVERY DAY 07/22/19 25 Active HySept 0.25 % external solution APPLY TO GAUZE AND PLACE ON RIGHT LOWER LEG ULCERS, CHANGE DAILY 09/25/19 25 Active predniSONE (Deltasone) 10 MG tablet 4 TABS X3 DAYS, 3TABS X3 DAYS, 2 TABS X3 DAYS, 1 TAB X3 DAYS, 1/2 TAB X4 DAYS 12/06/19 25 Active varenicline (Chantix) 1 MG tabletIndications :Tobacco user,Encounter for smoking cessation counseling Take 1 tablet (1 mg) by mouth in the morning and 1 tablet (1 mg) before bedtime. Take with full glass of water. 60 tablet 1 06 025 Active ergocalciferol (Vitamin D2) 1.25 MG (88798 UT) capsuleIndication s:Vitamin D deficiency, unspecified Take 1 capsule (1.25 mg) by mouth 1 (one) time per week 12 capsule 01/17/20 025 Active sulfamethoxazole- trimethoprim (Bactrim DS) 800-160 MG per tablet TAKE 1 TABLET BY MOUTH TWICE A DAY FOR 14 DAYS 01/15/20 Active amitriptyline (Elavil) 25 MG tabletIndications :Insomnia Take 1 tablet (25 mg) by mouth at bedtime 90 tablet 01/27/20 025 Active aspirin 81 MG chewable tabletIndications :Type 2 diabetes mellitus with complication, with long-term current use of insulin (HCC) Chew 1 tablet (81 mg) Daily 90 tablet 3 01/27/20 025 Active cetirizine (ZyrTEC) 10 MG tabletIndications :Non-seasonal allergic rhinitis, unspecified trigger Take 1 tablet (10 mg) by mouth Daily 90 tablet 01/27/20 025 Active dapagliflozin (Farxiga) 10 MGIndications:Typ e 2 diabetes mellitus with unspecified complications (HCC) Take 1 tablet (10 mg) by mouth Daily 90 tablet 01/27/20 025 Active DULoxetine (Cymbalta) [address] capsuleIndication s:Anxiety and depression Take 1 capsule (60 mg) by mouth in the morning and 1 capsule (60 mg) before bedtime. Do not crush or chew. 180 capsule 01/27/20 025 Active fluconazole (Diflucan) 150 MG tabletIndications :Antibiotic-induc ed yeast infection One time dose, repeat in 3 days . Do not take cholesterol pill while taking this medication. Once finished then resume 2 tablet 01/27/20 25 Active furosemide (Lasix) 20 MG tabletIndications :Bilateral lower extremity edema Take 1 tablet (20 mg) by mouth Daily as needed (edema) Take in the afternoon as needed 90 tablet 01/27/20 025 Active furosemide (Lasix) 40 MG tabletIndications :Bilateral lower extremity edema Take 1 tablet (40 mg) by mouth Daily 90 tablet 1 01/27/20 25 /19/2 025 Active hydrALAZINE (Apresoline) 25 MG tabletIndications :Primary hypertension Take 1 tablet (25 mg) by mouth in the morning and 1 tablet (25 mg) before bedtime. 180 tablet 01/27/20 Active lisinopril 20 MG tabletIndications :Primary hypertension Take 1 tablet (20 mg) by mouth Daily 90 tablet 01/27/20 025 Active omeprazole (PriLOSEC) [address] capsuleIndication s:Gastro-esophage al reflux disease without esophagitis Take 1 capsule (20 mg) by mouth in the morning. Take before meals. 90 capsule 01/27/20 025 Active potassium chloride ER (Micro-K) 10 MEQ ER capsuleIndication s:Bilateral lower extremity edema Take 1 capsule (10 mEq) by mouth Daily Take 1 capsule (10 mEq) by mouth in the morning. 90 capsule 01/27/20 025 Active Roflumilast 500 MCG tabletIndications :Chronic obstructive pulmonary disease, unspecified (HCC) Take 1 tablet by mouth Daily 90 tablet 01/27/20 025 Active simvastatin (Zocor) 10 MG tabletIndications :Hyperlipidemia, unspecified Take 1 tablet (10 mg) by mouth at bedtime 90 tablet 01/27/20 025 Active fluconazole (Diflucan) 150 MG tabletIndications :Antibiotic-induc ed yeast infection One time dose, repeat in 3 days . Do not take cholesterol pill while taking this medication. Once finished then resume 2 tablet 1 08/27/19 025 Disconti nued(Reo rder) Roflumilast 500 MCG tabletIndications :Chronic obstructive pulmonary disease, unspecified (HCC) Take 1 tablet by mouth Daily 90 tablet 1 10/22/19 025 Disconti nued(Reo rder) amitriptyline (Elavil) 25 MG tabletIndications :Insomnia Take 1 tablet (25 mg) by mouth at bedtime 90 tablet 1 10/28/19 025 Disconti nued(Reo rder) aspirin 81 MG chewable tabletIndications :Type 2 diabetes mellitus with complication, with long-term current use of insulin (HCC) Chew 1 tablet (81 mg) Daily 90 tablet 3 10/28/19 25 025 Disconti nued(Reo rder) cetirizine (ZyrTEC) 10 MG tabletIndications :Non-seasonal allergic rhinitis, unspecified trigger Take 1 tablet (10 mg) by mouth Daily 90 tablet 1 10/28/19 25 025 Disconti nued(Reo rder) dapagliflozin (Farxiga) 10 MGIndications:Typ e 2 diabetes mellitus with unspecified complications (HCC) Take 1 tablet (10 mg) by mouth Daily 90 tablet 1 10/28/19 25 025 Disconti nued(Reo rder) DULoxetine (Cymbalta) [address] capsuleIndication s:Anxiety and depression Take 1 capsule (60 mg) by mouth in the morning and 1 capsule (60 mg) before bedtime. Do not crush or chew. 180 capsule 1 10/28/19 25 025 Disconti nued(Reo rder) ergocalciferol (Vitamin D2) 1.25 MG (94536 UT) capsuleIndication s:Vitamin D deficiency, unspecified Take 1 capsule (1.25 mg) by mouth 2 (two) times a week 24 capsule 1 10/28/19 25 025 Disconti nued(Reo rder) hydrALAZINE (Apresoline) 25 MG tabletIndications :Primary hypertension Take 1 tablet (25 mg) by mouth in the morning and 1 tablet (25 mg) before bedtime. 180 tablet 1 10/28/19 25 025 Disconti nued(Reo rder) lisinopril 20 MG tabletIndications :Primary hypertension Take 1 tablet (20 mg) by mouth Daily 90 tablet 1 10/28/19 25 025 Disconti nued(Reo rder) omeprazole (PriLOSEC) [address] capsuleIndication s:Gastro-esophage al reflux disease without esophagitis Take 1 capsule (20 mg) by mouth in the morning. Take before meals. 90 capsule 1 10/28/19 25 025 Disconti nued(Reo rder) furosemide (Lasix) 20 MG tabletIndications :Bilateral lower extremity edema Take 1 tablet (20 mg) by mouth Daily as needed (edema) Take in the afternoon as needed 90 tablet 1 10/28/19 25 025 Disconti nued(Reo rder) potassium chloride ER (Micro-K) 10 MEQ ER capsuleIndication s:Bilateral lower extremity edema Take 1 capsule (10 mEq) by mouth Daily Take 1 capsule (10 mEq) by mouth in the morning. 90 capsule 1 10/28/19 25 025 Disconti nued(Reo rder) furosemide (Lasix) 40 MG tabletIndications :Bilateral lower extremity edema Take 1 tablet (40 mg) by mouth Daily 90 tablet 1 10/28/19 25 025 Disconti nued(Reo rder) amoxicillin-clavu lanate (Augmentin) 875-125 MG tablet Take 1 tablet by mouth every 12 (twelve) hours 12/06/19 25 025 Disconti nued(The rapy complete d) simvastatin (Zocor) 10 MG tabletIndications :Hyperlipidemia, unspecified Take 1 tablet (10 mg) by mouth at bedtime 90 tablet 1 12/20/19 25 025 Disconti nued(Reo rder) Active Problems Problem Noted Date Diagnosed Date [...] Gastro-esophageal reflux disease without esophag itis 10/27/2024 Assessment & Plan (01/26/2025 7:51 AM EDT): Recommendations: freq small meals, nothing to eat or drink at least 2 hours prior to bed, limit caffeine, alcohol, as well as spicy foods Meds to limit or avoid if possible: NSAIDS Elevate HOB if possible Current meds: ompeprazole Morbid (severe) obesity due to excess calories 0 08/27/2024 Assessment & Plan (01/26/2025 6:46 PM EDT): Discussed with patient their BMI (actual, [...] taking mounjaro for DM Assessment & Plan (12/09/2024 7:24 AM EDT): [...] wrapped, 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 as possible custodial current use of inhaled steroid 025 Non-pressure chronic ulcer o f other part of left lower leg limited to breakdown of skin 08/27/2024 Vitamin deficiency 08/27/2024 Antibiotic-induced yeast infection 08/27/2024 Chronic diastolic heart failure 08/08/2024 Assessment & Plan (01/26/2025 7:52 AM EDT): Current meds; asa, farxiga, lasix, hydralazine, lisinopril, Follows with [facility]ilogy Reviewed 01/06/25 notes Assessment & Plan (10/27/2024 7:07 AM EDT): [...] see if helps Encounter for subsequent [facility] wellness visit (AWV) in Medicare patient 01/17/2024 Assessment & Plan (01/26/2025 7:49 AM EDT): I have reviewed Ht/Wt/BMI, I have [...] office for wellness on a yearly basis Assessment & Plan (01/17/2024 12:35 PM EDT): [...] can try ubrelvy #3 samples given: Lot [id number], exp 03/2025 Mixed incontinence 11/14/2023 Arthritis 11/14/2023 Encounter for screening mamm ogram for malignant neoplasm of breast 11/01/2023 Non-seasonal allergic rhinitis 11/01/2023 Candidiasis of breast 11/01/2023 Assessment & Plan (11/01/2023 11:21 AM EDT): Skin care, Insomnia 09/17/2023 Assessment & Plan (01/26/2025 6:44 PM EDT): elavil Radiculopathy, lumbar region 09/17/2023 Assessment & Plan [...] is necessary they take over prescribing Pancreatitis ([facility]) 09/17/2023 COPD exacerbation 09/17/2023 Assessment & Plan [...] 11:17 AM EDT): Open wounds refer to [facility] Wound Care Pulmonary hypertension 09/17/2023 Assessment & Plan (01/26/2025 7:52 AM EDT): Has seen [facility] Cardiology Assessment & Plan (12/09/2024 7:23 AM EDT): Has seen [facility] Cardiology Assessment & Plan (11/15/2023 3:49 PM EDT): Saw [facility] Cardiology See notes Going to see Pulmonary Assessment & Plan (09/27/2023 1:03 PM EDT): Needs to wear her PAP I am also going to have her see [facility] Cardiology as well PAD (peripheral artery disease) 09/17/2023 Assessment & Plan (10/27/2024 2:38 PM EDT): Asa, statin Quit smoking BP and DM control Assessment & Plan (07/14/2024 7:32 PM EST): Asa, statin Quit smoking BP and DM control Malignant neoplasm of cervix uteri, unspecified 09/17/2023 Assessment & Plan (08/27/2024 7:33 AM EST): Had in the past, had hysterectomy Albuminuria 09/17/2023 Unilateral primary osteoarthritis, right hip 05/2024 Chronic pain of both knees 09/17/2023 Hyperlipidemia 09/17/2023 Assessment & Plan (01/26/2025 7:49 AM EDT): On statin therapy Check labs yearly and prn dose changes Assessment & Plan (08/27/2024 7:36 AM EST): On statin therapy Check labs yearly and prn dose changes Decreased functional mobility 09/17/2023 Adrenal mass 1 cm to 4 cm in diameter 09/17/2023 Assessment & Plan (07/14/2024 7:33 PM EST): Continue with Urology Kidney stone 09/17/2023 Assessment & Plan (07/14/2024 7:32 PM EST): Continue with Urology Proteinuria 09/17/2023 Vaginal yeast infection 08/17/2023 Assessment & Plan (01/26/2025 6:46 PM EDT): Secondary to double atb for now Obstructive sleep apnea 07/10/2023 Assessment & Plan [...] help Diabetic neuropathy 07/10/2023 Assessment & Plan (01/26/2025 7:53 AM EDT): Continue with lyrica, pain mgmt is prescribing OARRS reviewed Fu in 3 months Goal: tighter glucose control, this has been improving, latest A1c is 7.4%!!! Assessment & Plan (10/27/2024 2:37 PM EDT): Continue with lyrica, pain mgmt is prescribing OARRS reviewed Fu in 3 months Goal: tighter glucose control, this has been improving, latest A1c is 7.4%!!! Assessment & Plan (08/27/2024 6:06 PM EST): Continue with cintia hudson mgmt is prescribing OARRS reviewed Fu in 3 months Goal: tighter glucose control Assessment & Plan (07/14/2024 8:18 AM EST): Continue with lyangelito OARRS reviewed Fu in 3 months Assessment & Plan (04/14/2024 11:41 AM EDT): Continue with lyricjuvenal OARRS reviewed Fu in 3 months COPD (chronic obstructive pulmonary disease) 08/2023 Assessment & Plan (01/26/2025 6:44 PM EDT): Follows with verena Needs smoking cessation Current meds: duoneb, albuterol, daliresp, Assessment & Plan (10/27/2024 7:06 AM EDT): [...] spiriva Will trial breztri: #2 samples given [id number], exp 03/03, rinse mouth after use Give [...] quitting smoking Asthma 07/10/2023 Assessment & Plan (01/26/2025 6:44 PM EDT): Current meds: albuterol, duoneb, Has nutritional chemist 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 Assessment & Plan (08/27/2024 7:30 AM EST): Current meds: albuterol, duoneb, Has nutritional chemist 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 Assessment & Plan (01/17/2024 12:36 PM EDT): Cont w inhalers, pulmonology Quit smoking Hypertension 07/10/2023 Assessment & Plan (01/26/2025 7:52 AM EDT): Please check blood pressure daily and record DASH diet Limit caffeine Take medication as directed Contact office if chest pain, pressure, dizziness, shortness of breath, swelling legs Recommend slow position changes Current meds: hydralazine, lisinopril, Assessment & Plan (12/09/2024 7:23 AM EDT): [...] from hospital, lost script I did contact [facility] in [place], they will get another fill on this and have ready for patient Fu in 4 weeks Assessment & Plan (07/10/2023 11:59 AM EST): Stable on current dose of meds Type 2 diabetes mellitus wit h complication, with long-term current use of insulin 07/10/2023 Assessment & Plan (01/26/2025 7:50 AM EDT): Check blood sugars daily, notify [...] of DM Complications: DN, nephropathy, leg ulcers Assessment & Plan (12/09/2024 11:26 AM EDT): [...] Anxiety and depression 07/10/2023 Assessment & Plan (01/26/2025 6:46 PM EDT): Current meds: elavil, duloxtine, Assessment & Plan (12/09/2024 7:24 AM EDT): Current meds: elavil, duloxtine, Assessment & Plan (10/27/2024 7:09 AM EDT): Current meds: elavil, duloxtine, Assessment & Plan (08/27/2024 7:03 PM EST): Current meds: elavil, duloxtine, PHQ 9= 5 IRENE 7=3 Current meds: TCA, and duloxetine Bilateral lower extremity edema 07/10/2023 Assessment & Plan (01/26/2025 6:46 PM EDT): Limit sodium , elevate legs, furosemide Assessment & Plan (10/27/2024 7:07 AM EDT): Limit sodium , elevate legs, furosemide Assessment & Plan (08/27/2024 7:34 AM EST): Limit sodium , elevate legs, furosemide Assessment & Plan (07/14/2024 8:21 AM EST): Stable on current meds Assessment & Plan (04/14/2024 11:42 AM EDT): Stable on current meds Assessment & Plan (07/10/2023 11:59 AM EST): Continue w lasix, discussed skin care regimines as well RAGHU [...] in adult 09/27/2023 04/14/2024 Pneumonia 09/17/2023 10/27/2024 GERD (gastroesophageal reflux disease) 09/17/2023 01/26/2025 Assessment & Plan (10/27/2024 2:38 PM EDT): [...] Elevate HOB if possible Current med: PPI Lower extremity edema 09/17/20232023 Tobacco user 09/17/2023 10/27/2024 Assessment & Plan (08/27/2024 7:36 AM EST): The patient has been advised of the risks of continued smoking: stroke, NV, all forms of cancer, lung disease, and [...] of the risks of continued smoking: stroke, NV, all forms of cancer, lung disease, and [...] Encounters Date Type Department Care Team Description 01/26/2025 6:00 PM EDT Office Visit [facility] [address] [place] [address] Mckayla Blas, SILVANO Encounter for subsequent annual wellness visit (AWV) in Medicare patient (Primary Dx); Mixed hyperlipidemia ; Type 2 diabetes mellitus with complication, with long-term current use of insulin (HCC); Bilateral lower extremity edema; Gastro-esophageal reflux disease without esophagitis; Chronic diastolic heart failure (HCC); Primary hypertension ; Pulmonary hypertension (HCC); Diabetic polyneuropathy associated with type 2 diabetes mellitus (HCC); Pulmonary emphysema, unspecified emphysema type (HCC); Moderate persistent asthma without complication ([facility]); Insomnia; Non-seasonal allergic rhinitis, unspecified trigger; Type 2 diabetes mellitus with unspecified complications ([facility]); Anxiety and depression ; Antibiotic-induced yeast infection; Chronic obstructive pulmonary disease, unspecified (HCC); Hyperlipidemia, unspecified ; Vaginal yeast infection; Morbid (severe) obesity due to excess calories ([facility]) 01/26/2025 Bamboo flowsheet [facility] [address] [place] [address] Mckayla Blas NP 01/19/2025 Travel 01/16/2025 Refill [facility] [address] [place] [address] Amber Pinzon LPN Vitamin D deficiency, unspecified 01/07/2025 Abstract [facility] [address] [place] [address] Mckayla Blas NP 01/07/2025 Abstract [facility] [address] [place] [address] Mckayla Blas NP 12/18/2024 Refill [facility] [address] [place] [address] Mckayla Blas NP Hyperlipidemia, unspecified ; Tobacco user; Encounter for smoking cessation counseling 12/17/2024 Telephone [facility] [address] [place] [phone] Mckayla Blas NP Error (VOID this visit) 12/09/2024 10:00 AM EDT Office Visit [facility] [address] [place] [phone] Mckayla Blas NP Cellulitis of left lower extremity (Primary Dx); COPD exacerbation (HCC); Primary hypertension ; Pulmonary hypertension (HCC); Morbid (severe) obesity due to excess calories ([facility]); Type 2 diabetes mellitus with complication, with long-term current use of insulin (HCC); Anxiety and depression ; Fever, unspecified fever cause 12/09/2024 Bamboo flowsheet [facility] [address] [place] [address] Mckayla Blas NP 12/08/2024 Travel 12/04/2024 Clinisync Result Encounter [facility] External Department Unsolicited Provider, Generic External Data 10/29/2024 Refill [facility] [address] [place] [phone] Mckayla Blas NP Tobacco user; Encounter for smoking cessation counseling from Last 3 Months Immunizations Immunization Administration Dates Next Due Influenza Whole 05/02/2013 Influenza, O4B2-2018 04/16/2017,05/10/2016 Influenza, Unspecified 05/18/2023,04/16/2017,08/2015 Influenza, injectable, quadrivalent [...] often do you attend [facility] or [facility] services? More than 4 times per year 08/26/2024 Do you belong to any clubs o r organizations such as anabaptist groups, unions, fraternal or athletic groups, or [...] Recorded Patient Health Questionnaire-2 Score 0 01/26/2025 [facility] Occupational Stress Questionnaire Answer Date Recorded [...] in a intermediate (including now)? No 07/10/2023 Housing Stability Vital Sign Answer Wilmer e Recorded In the last 12 months, was t here a time when you were not able to pay the mortgage or rent on time? No 08/26/2024 Number of Times Moved in the Last Year Not on fi le 08/26/2024 At any time in the past 12 m [facility], were you homeless or living in a intermediate (including now)? No 08/26/2024 Comments Unknown Sex [...] 6.4 oz) 01/26/2025 6:11 PM EDT Height 170.2 cm (5' 7 ) 10/27/2024 2:11 PM EDT Body Mass Index 58.64 10/27/2024 2:11 PM EDT Plan of Treatment Upcoming Encounters Date Type Department Care Team (Late st Contact Info) Description 01/29/2025 9:40 AM EDT Office Visit [facility] [address] [place] [address] Rain Odonnell MD [address] [place] [address] 04/29/2025 6:00 PM EDT Office Visit [facility] [address] [place] [address] Mckayla Blas MENDER HAND [address] [place] [phone] 02/01/2026 6:00 PM EDT Office Visit [facility] [address] [place] [address] Mckayla Blas, SILVANO [address] [place] [address] Health Maintenance Due Date Last Done Comments CT Colonography 1970 Colonoscopy 1970 FIT 1970 FOBT 1970 Sigmoidoscopy 1970 HPV/Cotest 2000 Pap Smear 10/07/2018 10/08/2015, 10/08/2015 Mammogram 12/13/2024 12/14/2023, 06/0 01/2024, 11/22/2022 Diabetes: Hemoglobin A1C 01/07/2025 025, 05/27/2024, 02/15/2024, Additional history exists Influenza Vaccine (#1) 2025 , 05/18/2023, 04/16/2017, Additional history exists Diabetes: Retinopathy Screening 07/14/2025 07/14/2024, 05/13/2024, 05/27/2019 Colorectal Cancer Screening 08/03/2025 FIT-DNA 08/03/2025 08/03/2022 Diabetes: Urine Protein Screening 10/08/2025 025, 11/23/2022 Medicare Annual Wellness (AWV) 01/26/2026 0 01/26/2025, 01/17/2024, 01/17/2024 Cervical Cancer Screening Discontinued Procedures Procedure Name [...] AT 5 DAYS.^NO GROWTH AT 5 DAYS. [facility] 12/04/2024 5:28 PM EDT 12/04/2024 6:18 PM EDT Narrative [facility] - 12/10/2024 2:31 PM EDT LEFT AC us Generic External Data Provider LAB BLOOD ORDERAB LES Final Result [facility] * BLOOD CULTURE 1 (12/04/2024 4:44 PM EDT) BLOOD CULTURE 1 Blood Culture 1 NG5D NO GROWTH AT 5 DAYS.^NO GROWTH AT 5 DAYS. [facility] 12/04/2024 4:44 PM EDT 12/04/2024 5:17 PM EDT Narrative [facility] - 12/10/2024 2:32 PM EDT Generic External Data Provider LAB BLOOD ORDERAB LES Final Result Performing Organization Address City/[facility]/ZIP Co de Phone Number [facility] * POCT glycosylated hemoglobin (Hb A1C) docked device (10/08/2024 11:25 AM EDT) Hemoglobin A1C 7.4 Blood Venous blood specimen / Unknown 10/08/2024 11:25 AM EDT us Rain Odonnell MD POINT OF CARE TEST ENTER/EDIT ORDERABLES Final Result * Diabetic Retinopathy Screening - OU - Both Eyes (07/14/2024 3:09 PM EST) Anatomical Region Laterality Modality Head Other us Mckayla Blas MENDER HAND OPHTH PHOTOGRAPHY Final Result * MM TOMOSYNTHESIS SCREENING BI (12/14/2023 11:21 AM EDT) Anatomical Region Laterality Modality Other 12/14/2023 11:2 1 AM EDT Narrative 12/14/2023 11:22 [place] [address] Mammography Report Signed Patient: SINA MACIAS MR#: [id number] : 1970 Acct:[id number] Age/Sex: 53 / F ADM Date: 12/13/23 Loc: MAMMO Attending Dr: Mckayla Blas NP Ordering Physician: Mckayla Blas NP Results: Date of Service: 12/13/23 Follow Up: Procedure(s): MM tomosynthesis screening BI Accession Number(s): [id number] cc: Mckayla Blas NP Patient Name: SINA MACIAS MR#: [id number] : 1970 Exam Date: 12/13/2023 Ordering Doctor: [...] unknown cancer at age 75. LOCATION: [facility] BREAST COMPOSITION: The breasts are almost [...] Signed By: 12/14/23 1122 DD/ 1121 TD/TT: [employer] Supervisor: Procedure Note Radiology, Radiologist, MD - 12/14/2023 [place] [address] Mammography Report Signed Patient: SINA MACIAS LMR#: [id number] : 1970Acct:[id number] Age/Sex: 53 / FADM Date: 12/13/23 Loc: MAMMO Attending Dr: Mckayla Blas MENDER HAND Ordering Physician: Mckayla Blasesults: Date of Service: 12/13/23Follow Up: Procedure(s): MM tomosynthesis screening BI Accession Number(s): [id number] cc: Mckayla Blas NP Patient Name: SINA MACIAS MR#: [id number] : 1970 Exam Date: 12/13/2023 Ordering Doctor: SAYDA Blas FINAL TESTER RADIOLOGY REPORT PROCEDURE: MM TOMOSYNTHESIS SCREENING BI [...] unknown cancer at age 75. LOCATION: [facility] BREAST COMPOSITION: The breasts are almost [...] M.D. Signed By:12/14/23 1122 DD/ 1121 TD/TT: [employer] Supervisor: Mckayla Blas NP [facility] Final Result from Last 3 Months or Most Recently Relevant to Health Maintenance [place] [address] [address] [id number] MEDICARE Care Teams Biodiesel Engine Specialist Relationship Specialty Start Date End Date Ty Amin MD [address] [place] [phone] PCP - General Family Medicine 09/20/23 Mckayla Blas NP [address] [place] [address] Nurse Practitioner Family Medicine 09/20/23
--- OUTSIDE RECORDS SUMMARY | 2025-01-28 14:05 | XMS_ITS | Encounter Summary ---
Author Organization [facility] Address [address] [place] [address] Care Team Providers Care Crystal Growing Technician Name Role Phone Ty Amin MD Primary Care Provider [phone] Ty Amin MD Primary Care Provider [phone] Mckayla Blas LIBRARY CLERK Unavailable [phone] Mckayla Blas LIBRARY CLERK Unavailable [phone] Encounter Details Date Type Department Care Team (Late st Contact Info) Description 07/08/2023 Abstract [facility] [address] [place] [address] Mckayla Blas NP [address] [place] [address] Social History Tobacco Use Types Packs/Day Years [...] often do you attend chur ch or baptism services? 1 to 4 times per year 07/10/2023 Do you belong to any clubs o r organizations such as zoroastrianism groups, unions, fraternal or athletic groups, or [...] Recorded Patient Health Questionnaire-2 Score 2 07/10/2023 [facility] - [...] Questionnaire-2 Score 2 07/10/2023 11:17 AM [place] * If you checked off any problems [...] EDT Office Visit [facility] [address] [place] [address] Rain Souza MD [address] [place] [address] 04/29/2025 6:00 PM EDT Office Visit [facility] [address] [place] [address] Mckayla Blas, SILVANO [address] [place] [address] 02/01/2026 6:00 PM EDT Office Visit [facility] [address] [place] [address] Mckayla Blas NP [address] [place] [address] documented as of this encounter Visit Diagnoses Not on filedocumented in this encounter Care Teams Crystal Growing Technician Relationship Specialty Start Date End Date Ty Amin MD PCP - General Family Medicine 01/05/23 09/19/23 Ty Amin MD [address] [place] [address] PCP - General Family Medicine 09/20/23 Mckayla Blas NP [address] [place] [address] PCP - [facility] 09/07/23 01/11/25 Mckayla Blas NP [address] [place] [address] Nurse Practitioner Family Medicine 09/20/23 documented as of this encounter
--- OUTSIDE RECORDS SUMMARY | 2025-01-28 14:05 | XMS_ITS | Encounter Summary ---
Author Organization [facility] Address [address] [place] [address] Care Team Providers Care Car Sales Associate Name Role Phone Ty Amin MD Primary Care Provider [phone] Mckayla Blas NP Unavailable [phone] Mckayla Blas NP Unavailable [phone] Encounter Details Date Type Department Care [...] often do you attend chur ch or uatsdin services? 1 to 4 times per year [...] place to sleep or slept in a fci (including now)? No 07/10/2023 Comments Unknown Sex [...] Visit [facility] [address] [place] [address] Rain Souza MD [address] [place] [address] 04/29/2025 6:00 PM EDT Office Visit [facility] [address] [place] [address] Mckayla Blas NP [address] [place] [address] 02/01/2026 6:00 PM EDT Office Visit [facility] [address] [place] [address] Mckayla Blas NP [address] [place] [address] documented as of this encounter Procedures Procedure Name Priority Date/Time Associated Diagnosis Comments SEGMENTAL BLOOD PRESSURE 04/24/2024 11:20 AM EDT documented in this encounter Results * SEGMENTAL BLOOD PRESSURE (04/24/2024 11:20 AM EDT) Anatomical Region Laterality Modality Radiographic Kalani ging 04/24/2024 11:2 0 AM EDT Narrative 04/24/2024 11:23 [place] [address] Vein Report Signed Patient: MITZI MACIAS MR#: [id number] : 1970 Acct:[id number] Age/Sex: 53 / F ADM Date: 04/24/24 Loc: VC Attending Dr: Rafael Gongora Ordering Physician: Rafael Gongora Date of Service: 04/24/24 Procedure(s): VC SEGMENTAL PRESSURES Accession Number(s): [id number] cc: Mckayla Blas PERIANESTHESIA RN; Rafael Gongora [place] [id number] Patient Name: MITZI MACIAS MRN: [id number] date: 1970 Sex: F Assigned Patient Location: Current Patient Location: Accession/Order Number: [id number] Exam Date: 04/24/2024 10:25 Report Date: 04/24/2024 11:20 At the request of: RAFAEL GONGORA Procedure: VC SEGMENTAL PRESSURES EXAM: VC SEGMENTAL PRESSURES HISTORY: R09.89 COMPARISON: None. FINDINGS: Segmental pressures presented as follows (right, left) in mmHg. Brachial: 169, 166 Upper thigh: Not obtained Lower thigh: 129, 119 Calf: 124, 106 DPA: 108, 105 ENGINE PILOT: 100, 91 1st Toe: 124, 142 ISABELLE: [...] Signed By: 04/24/24 1123 DD/ 1120 TD/TT: Windows Systems Admin: Procedure Note Radiology, Radiologist, MD - 04/24/2024 [place] [address] Vein Report Signed Patient: MITZI MACIAS LMR#: [id number] : 1970Acct:[id number] Age/Sex: 53 / FADM Date: 04/24/24 Loc: VC Attending Dr: Rafael Gongora Ordering Physician: Rafael Gongora Date of Service: 04/24/24 Procedure(s): VC SEGMENTAL PRESSURES Accession Number(s): [id number] cc: Mckayla Blas NP; Rafael Gongora [place] [address] Patient Name: MITZI MACIAS MRN: [id number] date: 1970 Sex: F Assigned Patient Location: Current Patient Location: Accession/Order Number: [id number] Exam Date: 04/24/2024 10:25 Report Date: 04/24/2024 11:20 At the request of: RAFAEL GONGORA Procedure: VC SEGMENTAL PRESSURES EXAM: VC SEGMENTAL PRESSURES HISTORY: R09.89 COMPARISON: None. FINDINGS: Segmental pressures presented as follows (right, left) in mmHg. Brachial: 169, 166 Upper thigh: Not obtained Lower thigh: 129, 119 Calf: 124, 106 DPA: 108, 105 ENGINE PILOT: 100, 91 1st Toe: 124, 142 ISABELLE: [...] M.D. Signed By:04/24/24 1123 DD/ 1120 TD/TT: [employer] Admin: us Generic External Data Provider IMG XR PROCEDURES Final Result documented in this encounter Visit Diagnoses Not on filedocumented in this encounter Additional Health Concerns Assessment Noted Time PHQ-9 Depression Total Score: 3 01/17/20 24 10:08 AM EDT documented as of this encounter Care Teams Car Sales Associate Relationship Specialty Start Date End Date Ty Amin MD [address] [place] [address] PCP - General Family Medicine 09/20/23 Mckayla Blas NP [address] [place] [address] PCP - [facility] 09/07/23 01/11/25 Mckayla Blas NP [address] [place] [address] Nurse Practitioner Family Medicine 09/20/23 documented as of this encounter
--- OUTSIDE RECORDS SUMMARY | 2025-01-28 14:05 | XMS_ITS | Encounter Summary ---
Author Organization [facility] Address [address] [place] [address] Care Team Providers Care Motor Room Controller Name Role Phone Ty Amin MD Primary Care Provider [phone] Mckayla Blas NUTRITION CLUB AMBASSADOR Unavailable [phone] Mckayla Blas NUTRITION CLUB AMBASSADOR Unavailable [phone] Reason for Visit * Reason Comments Med Refill Encounter Details Date Type Department Care Team (Late st Contact Info) Description 11/27/2023 Refill [facility] [address] [place] [address] Mckayla Blas NP [address] [place] [address] Chronic obstructive pulmonary disease, unspecified (HCC) Social [...] How often do you attend chur or restorationism services? 1 to 4 times per year 07/10/2023 Do you belong to any clubs o r organizations such as yarsani groups, unions, fraternal or athletic groups, or [...] Patient Health Questionnaire-2 Score 0 11/01/2023 [facility] Occupat [...] Visit [facility] [address] [place] [address] Rain Souza MD [address] [place] [address] 04/29/2025 6:00 PM EDT Office Visit [facility] [address] [place] [address] Mckayla Blas NP [address] [place] [address] 02/01/2026 6:00 PM EDT Office Visit [facility] [address] [place] [address] Mckayla Blas NP [address] [place] [address] documented as of this encounter Visit Diagnoses Diagnosis Chronic obstructive pulmonary disease, unspecified (HCC) documented in this encounter Care Teams Motor Room Controller Relationship Specialty Start Date End Date Ty Amin MD [address] [place] [address] PCP - General Family Medicine 09/20/23 Mckayla Blas NP [address] [place] [address] PCP - [facility] 09/07/23 01/11/25 Mckayla Blas NP [address] [place] [address] Nurse Practitioner Family Medicine 09/20/23 documented as of this encounter
--- OUTSIDE RECORDS SUMMARY | 2025-01-28 14:05 | XMS_ITS | Encounter Summary ---
Author Organization [facility] Address [address] [place] [address] Care Team Providers Care Electronic Service Technician Name Role Phone Ty Amin MD Primary Care Provider [phone] Mckayla Blas SHANK STAPLER Unavailable [phone] Mckayla Blas NP Unavailable [phone] Encounter Details Date Type Department Care Team (Late st Contact Info) Description 12/17/2023 Orders Only [facility] [address] [place] [address] Mckayla Blas NP [address] [place] [address] Social History Tobacco Use Types Packs/Day Years [...] any clubs o r organizations such as mormonism groups, unions, fraternal or athletic groups, or [...] Recorded Patient Health Questionnaire-2 Score 0 11/01/2023 [facility] - [...] Visit [facility] [address] [place] [address] Rain Souza MD [address] [place] [address] 04/29/2025 6:00 PM EDT Office Visit [facility] [address] [place] [address] Mckayla Blas NP [address] [place] [address] 02/01/2026 6:00 PM EDT Office Visit [facility] [address] [place] [address] Mckayla Blas NP [address] [place] [address] documented as of this encounter Procedures Procedure Name Priority Date/Time Associated Diagnosis Comments MM SCREENING MAMM WITH 3D SERENA - US AND ADDITIONAL Routine 12/14/2023 8:34 AM EDT documented in this encounter Results * MM SCREENING MAMM WITH 3D SERENA - US AND ADDITIONAL (12/14/2023 8:34 AM EDT) Anatomical Region Laterality Modality Radiographic Kalani ging us Mckayla Blas SHANK STAPLER IMG XR PROCEDURES Final Result documented in this encounter Visit Diagnoses Not on filedocumented in this encounter Care Teams Electronic Service Technician Relationship Specialty Start Date End Date Ty Amin MD [address] [place] [address] PCP - General Family Medicine 09/20/23 Mckayla Blas NP [address] [place] [address] PCP - [facility] 09/07/23 01/11/25 Mckayla Blas NP [address] [place] [address] Nurse Practitioner Family Medicine 09/20/23 documented as of this encounter
--- OUTSIDE RECORDS SUMMARY | 2025-01-28 14:05 | XMS_ITS | Encounter Summary ---
Author Organization [facility] Address [address] [place] [address] Care Team Providers Care Fowl Blood Tester Name Role Phone Ty Amin MD Primary Care Provider [phone] Mckayla Blas INDUSTRIAL TECHNICIAN Unavailable [phone] Mckayla Blas NP Unavailable [phone] Encounter Details Date Type Department Care Team (Late st Contact Info) Description 12/14/2023 Clinisync Result Encounter [facility] External Department Unsolicited Mckayla Blas NP [address] [place] [address] Social History Tobacco Use Types Packs/Day Years [...] How often do you attend chur or faith services? 1 to 4 times per year 07/10/2023 Do you belong to any clubs o r organizations such as latter day groups, unions, fraternal or athletic groups, or [...] Recorded Patient Health Questionnaire-2 Score 0 11/01/2023 [facility] - Occupational Stress Questionnaire Answer Date [...] a senior living (including now)? No 07/10/2023 Comments Unknown Sex [...] [facility] [address] [place] [address] Rain Souza MD [address] [place] [address] 04/29/2025 6:00 PM EDT Office Visit [facility] [address] [place] [address] Mckayla Blas NP [address] [place] [address] 02/01/2026 6:00 PM EDT [facility] [address] [place] [address] Mckayla Blas NP [address] [place] [address] documented as of this encounter Procedures Procedure Name Priority Date/Time Associated Diagnosis Comments MM TOMOSYNTHESIS SCREENING BI 12/14/2023 11:21 AM EDT documented in this encounter Results * MM TOMOSYNTHESIS SCREENING BI (12/14/2023 11:21 AM EDT) Anatomical Region Laterality Modality Other 12/14/2023 11:2 1 AM EDT Narrative 12/14/2023 11:22 [place] [address] Mammography Report Signed Patient: MITZI MACIAS MR#: [id number] : 1970 Acct:[id number] Age/Sex: 53 / F ADM Date: 12/13/23 Loc: MAMMO Attending Dr: Mckayla Blas NP Ordering Physician: Mckayla Blas NP Results: Date of Service: 12/13/23 Follow Up: Procedure(s): MM tomosynthesis screening BI Accession Number(s): [id number] cc: Mckayla Blas NP Patient Name: MITZI MACIAS MR#: [id number] : 1970 Exam Date: 12/13/2023 Ordering Doctor: [...] unknown cancer at age 75. LOCATION: [facility] BREAST COMPOSITION: The breasts are [...] Signed By: 12/14/23 1122 DD/ 1121 TD/TT: Nursing Education Consultant: Procedure Note Radiology, Radiologist, MD - 12/14/2023 [place] [address] Mammography Report Signed Patient: MITZI MACIAS LMR#: [id number] : 1970Acct:[id number] Age/Sex: 53 / FADM Date: 12/13/23 Loc: MAMMO Attending Dr: Mckayla Blas NP Ordering Physician: Mckayla Blas NPResults: Date of Service: 12/13/23Follow Up: Procedure(s): MM tomosynthesis screening BI Accession Number(s): [id number] cc: Mckayla Blas NP Patient Name: MITZI MACIAS MR#: [id number] : 1970 Exam Date: 12/13/2023 Ordering Doctor: SAYDA Blas RESIDENT ASSOCIATE RADIOLOGY REPORT PROCEDURE: MM TOMOSYNTHESIS SCREENING BI [...] unknown cancer at age 75. LOCATION: [facility] BREAST COMPOSITION: The breasts are [...] M.D. Signed By:12/14/23 1122 DD/ 1121 TD/TT: Nursing Education Consultant: Mckayla Blas NP [facility] Final Result documented in this encounter Visit Diagnoses Not on filedocumented in this encounter Care Teams Fowl Blood Tester Relationship Specialty Start Date End Date Ty Amin MD [address] [place] [address] PCP - General Family Medicine 09/20/23 Mckayla Blas NP [address] [place] [address] PCP - [facility] 09/07/23 01/11/25 Mckayla Blas NP [address] [place] [address] Nurse Practitioner Family Medicine 09/20/23 documented as of this encounter
--- OUTSIDE RECORDS SUMMARY | 2025-01-28 14:05 | XMS_ITS | Encounter Summary ---
Author Organization [facility] Address [address] [place] [address] Care Team Providers Care Supervisor Feed House Name Role Phone Ty Amin MD Primary Care Provider [phone] Mckayla Blas NP Unavailable [phone] Encounter Details Date Type Department Care Team ([facility] st Contact Info) Description 01/26/2025 Bamboo flowsheet [facility] [address] [place] [address] Mckayla Blas NP [address] [place] [address] Social History Tobacco Use Types Packs/Day Years [...] How often do you attend chur or voodoo services? More than 4 times per year 08/26/2024 Do you belong to any clubs o r organizations such as holiness groups, unions, fraternal or athletic groups, or [...] any time in the past 12 m [facility], were you homeless or living in a skilled nursing (including now)? No 08/26/2024 Comments Unknown Sex and Gender Information Value Date Recorded Sex Assigned at Not on file Legal Sex Female 6:50 PM EDT Gender Identity Not on file Sexual Orientation Not on file documented as of this encounter Functional Status * Over the past 2 weeks, how often have you been bothered by any of the following problems? Question Answer Date of Assessment Author Patient Health Questionnaire-2 Score 1 01/07 4:13 PM EDT Mychart, Generic * Little interest or pleasure in doing things Answer Date of Assessment Author Several days 01/26/2025 4:13 PM EDT Mychart, Generic * Feeling down, depressed, or hopeless Answer Date of Assessment Author Not at all 01/26/2025 4:13 PM EDT Mychart, Generic * Question Answer Date of Assessment Author [...] Mychart, Generic documented as of this encounter Plan of Treatment Upcoming Encounters Date Type Department Care Team (Late st Contact Info) Description 01/29/2025 9:40 AM EDT Office Visit [facility] [address] [place] [address] Rain Souza MD [address] [place] [address] 04/29/2025 6:00 PM EDT Office Visit [facility] [address] [place] [address] Mckayla Blas NP [address] [place] [address] 02/01/2026 6:00 PM EDT Office Visit [facility] [address] [place] [address] Mckayla Blas NP [address] [place] [address] documented as of this encounter Visit Diagnoses Not on filedocumented in this encounter Additional Health Concerns Assessment Noted Time PHQ-9 Depression Total Score: 3 01/17/20 24 10:08 AM EDT documented as of this encounter Care Teams Supervisor Feed House Relationship Specialty Start Date End Date Ty Amin MD [address] [place] [address] PCP - General Family Medicine 09/20/23 Mckayla Blas NP [address] [place] [address] Nurse Practitioner Family Medicine 09/20/23 documented as of this encounter
--- OUTSIDE RECORDS SUMMARY | 2025-01-28 14:05 | XMS_ITS | Encounter Summary ---
Author Organization [facility] Address [address] [place] [address] Care Team Providers Care Agronomist Name Role Phone Ty Amin MD Primary Care Provider [phone] Mckayla Blas CASINO SURVEILLANCE OFFICER Unavailable [phone] Mckayla Blas CASINO SURVEILLANCE OFFICER Unavailable [phone] Encounter Details Date Type Department Care Team (Late st Contact Info) Description 04/14/2024 Orders Only [facility] [address] [place] [address] Mckayla Blas CASINO SURVEILLANCE OFFICER [address] [place] [address] Social History Tobacco Use Types Packs/Day Years [...] Health Questionnaire-2 Score 1 01/17/2024 [facility]at ional Health - Occupational [...] [facility] [address] [place] [address] Rain Souza MD [address] [place] [address] 04/29/2025 6:00 PM EDT Office Visit [facility] [address] [place] [address] Mckayla Blas CASINO SURVEILLANCE OFFICER [address] [place] [address] 02/01/2026 6:00 PM EDT Office Visit [facility] [address] [place] [address] Mckayla Blas NP [address] [place] [address] documented as of this encounter Procedures Procedure Name Priority Date/Time Associated Diagnosis Comments XR ANKLE 3+ VIEWS RIGHT Routine 04/14/2024 2:57 PM EDT XR ANKLE 3+ VIEWS RIGHT Routine 04/14/2024 11:20 AM EDT documented in this encounter Results * XR ankle 3+ views right (04/14/2024 2:57 PM EDT) Anatomical Region Laterality Modality Lower Extremities, Ankle Right Radiogr aphic Imaging Mckayla Blas CASINO SURVEILLANCE OFFICER IMG XR PROCEDURES Final Result * XR ankle 3+ views right (04/14/2024 11:20 AM EDT) Anatomical Region Laterality Modality Lower Extremities, Ankle Right Radiogr aphic Imaging Mckayla Blas CASINO SURVEILLANCE OFFICER IMG XR PROCEDURES Final Result documented in this encounter Visit Diagnoses Not on filedocumented in this encounter Additional Health Concerns Assessment Noted Time PHQ-9 Depression Total Score: 3 01/17/20 10:08 AM EDT documented as of this encounter Care Teams Agronomist Relationship Specialty Start Date End Date Ty Amin MD [address] [place] [address] PCP - General Family Medicine 09/20/23 Mckayla Blas NP [address] [place] [address] PCP - [facility] 09/07/23 01/11/25 Mckayla Blas NP [address] [place] [address] Nurse Practitioner Family Medicine 09/20/23 documented as of this encounter
--- OUTSIDE RECORDS SUMMARY | 2025-01-28 14:05 | XMS_ITS | Patient Health Record ---
Author Organization [facility] in [place] Address [address] [place] [address] Care Team Providers Care Sales And Marketing Vice President Name Role Phone Mckayla Blas CNP Primary Care Provider Unavail able Armando Yañez Unavailable [phone] Allergies No Known Allergies Results Component Value Reference Range Notes VC SEGMENTAL PRESSURES (Not yet reviewed by provider) Interpretation: Performing Lab: Notes/Report: Source Facility: [place] [address] Vein Report Signed Patient: MITZI MACIAS MR#: [id number] : 1970 Acct:[id number] Age/Sex: 53 / F ADM Date: 04/24/24 Loc: VC Attending Dr: Rafael Gongora Ordering Physician: Rafael Gongora Date of Service: 04/24/24 Procedure(s): VC SEGMENTAL PRESSURES Accession Number(s): [id number] cc: Mckayla Blas PUBLICATION SPECIALIST; Rafael Gongora [place] [address] Patient Name: MITZI MACIAS MRN: [facility]:[id number] date: 1970 Sex: F Assigned Patient Location: VC Current Patient Location: VC Accession/Order Number: [id number] Exam Date: 04/24/2024 10:25 Report Date: 04/24/2024 11:20 At the request of: RAFAEL GONGORA Procedure: VC SEGMENTAL PRESSURES EXAM: VC SEGMENTAL PRESSURES HISTORY: R09. COMPARISON: None. FINDINGS: Segmental pressures presented as follows (right, left) in mmHg. Brachial: 169, 166 Upper thigh: Not obtained Lower thigh: 129, 119 Calf: 124, 106 DPA: 108, 105 COOLER WORKER: 100, 91 1st Toe: 124, 142 ISABELLE: [...] GARDNER Date: 04/24/2024 11:20 Dictated By: Maryanne Gadrner M.D. Signed By: 04/24/24 112 DD/ 112 TD/TT: Supervisor Coremaker: [place] [address] Vein Report Signed Patient: BARBY MACIAS MR#: [id number] : 1970 Acct:[id number] Age/Sex: 53 / F ADM Date: 04/24/24 Loc: VC Attending Dr: Nanci Gongora Ordering Physician: Rafael Gongora Date of Service: 04/24/24 Procedure(s): VC SEGMENTAL PRESSURES Accession Number(s): [id number] cc: Mckayla Blas PUBLICATION SPECIALIST ; Rafael Gongora [place] [id number] Patient Name: MITZI MACIAS MRN: [facility]:[id number] date: 1970 Sex: F Assigned Patient Location: VC Current Patient Location: VC Accession/Order Numb er: [id number] Exam Date: 10:25 Report Date: 04/24/2024 11:20 At the request of: RAFAEL GONGORA Procedure: VC SEGMEN KARY PRESSURES EXAM: VC SEGMENTAL PRESSURES HISTORY: R09.89 COMPARISON: None. FINDINGS: Segmental pressures presented as follows (right, left) in mmHg. Brachial: 169, 166 Upper thigh: Not obtained Lower thigh: 129, 119 Calf: 124, 106 DPA: 108, 105 COOLER WORKER: 100, 91 1st Toe: 124, 142 ISABELLE: [...] M.D. Signed By: 04/24/243 DD/ 19 TD/TT: Supervisor Coremaker: PROF OLIVIER 8 ([facility] ) (Not yet reviewed by provider) Interpretation: Performing Lab: Notes/Report: [facility] , Sodium 142 136-145 mmol/L Potassium [...] Performing Lab: see note ML - [facility] LB CBC AUTO DIFF (Not yet revie wed by provider) Interpretation: Performing Lab: Notes/Report: [facility] , White Blood Count 12.8 4.0-11.0 10 [...] Performing Lab: see note ML - [facility] LB Reason For Referral No Information [...] Days Active Vitamin D (Ergocalciferol) 1.25 MG (15385 UT) Oral for 90 Days Activ e Breztri Aerosphere 160-9-4.8 MCG/ACT Inhalation for 30 Days Active Simvastatin 10 MG Oral for 90 Days Active Roflumilast 250 MCG Oral for 28 Days Active Immunizations Vaccine Route Administration Date Status Comme nts Flu, Fluzone (15471) 6-35mo, multi-dose vial (4567-4625) Unknown 05/18/2023 Administered Pneumococcal (Pneumovax 23) Unknown [...] ulcer due to type 2 diabetes mellitus (3346908307947) Type 2 diabetes mellitus with foot ulcer (E11.621) Active confirmed Problem 154429273 Morbid (severe) obesity due to excess calories (E66.01) Active confirmed Problem Venous ulcer of lower extremity due to chronic peripheral venous hypertension (658671256025890) Chronic venous hypertension (idiopathic) with ulcer of left lower extremity (I87.312) Active confirmed Problem Chronic non-pressure ulcer of calf extending to fat level (9078496008588190 1) Non-pressure chronic ulcer of other part of right lower leg with fat layer exposed (L97.812) Active confirmed Problem Chronic ulcer of skin of lower leg (disorder) (1712460633790941 4) Non-pressure chronic ulcer of other part of left lower leg limited to breakdown of skin (L97.821) Active confirmed Problem 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 exposed (L97.822) Active confirmed Problem Long-term current use of inhaled steroid (345737559) intermission coordinator (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 inhaled steroids (Z79.51) Active confirmed Problem COPD - Chronic obstructive pulmonary disease (06987237) COPD (chronic obstructive pulmonary disease) (J44.9) Active confirmed Problem Hypertension (51485446) HTN (hypertension) (I10) Active confirmed Problem Obstructive sleep apnea syndrome (03951953) DANIEL (obstructive sleep apnea) (G47.33) Active confirmed Problem Lumbar radiculopathy (149034843) Lumbar radiculopathy (M54.16) Active confirmed Problem Diabetes mellitus type 2 (disorder) (54755001) DM2 (diabetes mellitus, type 2) (E11.9) Active confirmed Problem Mental disorder caused by drug (110590838) Cigarette nicotine dependence with nicotine-induced disorder (F17.219) Active confirmed Problem Leukocytosis (018199896) Leukocytosis (D72.829) Active confirmed Problem Acute exacerbation of chronic obstructive airways disease (664369215) COPD with exacerbation (J44.1) Active confirmed Problem 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 (I87.313) Active confirmed Problem Non-prs chr ulce r oth prt l low leg limited to brkdwn skin (L97.821) Active confirmed Problem Stasis dermatitis co-occurrent with venous ulcer of right lower extremity due to chronic peripheral venous hypertension (607135220231783) Idiopathic chronic venous hypertension of right lower extremity with ulcer (I87.311) Active confirmed Problem Chronic venous hypertension with ulcer and inflammation involving left side (I87.332) Active confirmed Problem Abnormal arterial blood gas (700387478) Elevated carbon dioxide level (R79.81) Active confirmed Problem Skin ulcer of right knee, limited to breakdown of skin (L97.811) Active confirmed Encounters Encounter Location Date Provider Diagnosis [facility] [address] [place] [address] 04/07/2024 Armando Yañez [facility] [address] [place] [address] 12/02/2024 Armando De Leon Plan Of Treatment Pending Test Test Name Order Date CBC AUTO DIFF 08/27/2024 PROF CHEM 8 (BAS METB) 08/27/2024 VC SEGMENTAL PRESSURES 04/24/2024 Insurance Providers Payer Name Payer Address Payer Phone Subscriber Number Group Number Insured Name Patient Relationship to Insured Coverage Start Date Coverage End Date [facility] [employer] [employer] [address] [place] [address] [id number] Mitzi Macias Self - patient is the [...] toe surgery Hospitalization History Reason Date(Month/Year) Pneumonia -[facility] 08/31/2023 COPD Exacerbation-[facility] 09/10/2023
== END 2025-01-28 14:02 | disposition home or self-care (01) ==
LOC: WC 14:01
PROVIDERS: PCP Nurse Practitioner; Visit Provider Physician Assistant
DX: I87.332 Chronic venous hypertension (idiopathic) with ulcer and inflammation of left lower extremity (principal); L97.822 Non-pressure chronic ulcer of other part of left lower leg with fat layer exposed; I87.311 Chronic venous hypertension (idiopathic) with ulcer of right lower extremity; L97.812 Non-pressure chronic ulcer of other part of right lower leg with fat layer exposed
CPT/HCPCS: G0463

== ENCOUNTER 2025-01-29 12:03 | Outpatient (OUT) | payer MEDICARE, SELFPAY ==
--- OUTSIDE RECORDS SUMMARY | 2024-12-02 05:30 | XMS_ITS ---
Author Organization The [facility] in [place] Address [address] [place] [address] Care Team Providers Care Hand Rigger Name Role Phone Mckayla Blas CNP Primary Care Provider Armando Limon Unavailable [phone] REASON FOR VISIT 1YEAR-COPD Encounters Encounter Location Date Provider Diagnosis Pulmonary Medicine [place] [address] [place] [address] 12/02/2024 Armando Yañez Plan Of Treatment No Information Progress Notes * Mitzi MACIAS LDOB:[birth year] (54 yo F)Acc No.[id number]:12/02/2024 UNLOCKED PROGRESS NOTE Follow Up Patient: Mitzi COX Provider: Tray Yañez DO :1970 A ge:54 Y S ex:Female Date:12/02/2024 Address:[address] [place], [place] [address] Pcp:Mckayla Blas CNP Subjective: * Chief Complaints: * 1 . 1YEAR-COPD. * Medical History: Objective: * Vitals: Assessment: Plan: * Treatment: * * Electronic signature of Radha Yañez DO on 01/29/2025 at 12:05 PM EDT Sign off status: Pending Visit Status: N /S N/C (No Show/No Charge) * Provider: Tray Yañez DO Date: 0 12/02/2024 Generated for Vanessa ocampo/Luis/eTransmitting on: 0 01/29/2025 12:05 PM EDT
--- OUTSIDE RECORDS SUMMARY | 2024-12-02 05:47 | XMS_ITS ---
Author Organization The [facility] in [place] Address [address] [place] [address] Care Team Providers Care Manager Bench Name Role Phone Mckayla Blas CNP Primary Care Provider Armando Limon [phone] REASON FOR VISIT No Show Appointment Encounters Encounter Location Date Provider Diagnosis Pulmonary Medicine [place] [address] [place] [address] 12/02/2024 Armando Yañez Plan Of Treatment No Information Progress Notes * MACIASMitzi CARPIO LDOB:[birth year] (54 yo F)Acc No.[id number]:12/02/2024 Patient: Mitzi COX :1970 A ge:54 Y S ex:Female Address:[address] [place] [address] * true * Date: Generated for Tiffanyi terrence/Luis/eTransmitting on: 0 01/29/2025 09:43 AM EDT
--- OUTSIDE RECORDS SUMMARY | 2025-01-26 18:00 | XMS_ITS | Encounter Summary ---
Author Organization [facility] Address [address] [place] [address] Care Team Providers Care Iap Displays Analyst Name Role Phone Ty Amin MD Primary Care Provider [phone] Mckayla Blas CULTURE ROOM WORKER Unavailable [phone] Reason for Visit * Reason Comments Medicare Annual Wellness Visit Initial Encounter Details Date Type Department Care Team (Late st Contact Info) Description 01/26/2025 6:00 PM EDT Office Visit [facility] [address] [place] [address] Mckayla Blas, CULTURE ROOM WORKER [address] [place] [address] Encounter for subsequent annual wellness visit (AWV) in Medicare patient (Primary Dx); Mixed hyperlipidemia ; Type 2 diabetes mellitus with complication, with long-term current use of insulin ([facility]); Bilateral lower extremity edema; Gastro-esophageal reflux disease without esophagitis; Chronic diastolic heart failure (HCC); Primary hypertension ; Pulmonary hypertension ([facility]); Diabetic polyneuropathy associated with type 2 diabetes mellitus (HCC); Pulmonary emphysema, unspecified emphysema type (HCC); Moderate persistent asthma without complication ([facility]); Insomnia; Non-seasonal allergic rhinitis, unspecified trigger; Type 2 diabetes mellitus with unspecified complications (HCC); Anxiety and depression ; Antibiotic-induced yeast infection; Chronic obstructive pulmonary disease, unspecified (HCC); Hyperlipidemia, unspecified ; Vaginal yeast infection; Morbid (severe) obesity due to excess calories ([facility]) Social History Tobacco Use Types Packs/Day [...] How often do you attend chur or temple services? More than 4 times per year 08/26/2024 Do you belong to any clubs o r organizations such as tenriism groups, unions, fraternal or athletic groups, or [...] Recorded Patient Health Questionnaire-2 Score 0 01/26/2025 [facility] - Occupational [...] any time in the past 12 m [facility], were you homeless or living in a [...] 01/26/2025 6:00 PM EDT Please call the [facility] to schedule your mammogram: [phone] documented in this encounter Progress Notes * Mckayla Blas NP - 01/26/2025 6:46 PM EDTAssociated Problem(s): Anxiety and depression Current meds: elavil, duloxtine, * Mckayla Blas NP - 01/26/2025 6:46 PM EDTAssociated Problem(s): Morbid (severe) obesity due to excess calories ([facility]) Discussed with patient their BMI (actual, verses [...] Asthma (HCC) Current meds: albuterol, duoneb, Has finisher hot strip 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 * Mckayla Blas NP [...] 25 mg, Oral, 2 times daily HYDROcodone-acetaminophen ([place]) 5-325 MG tablet 1 tablet, 3 times [...] 09/17/2023 Angiomyolipoma Anxiety and depression 07/10/2023 Asthma ([facility]) 07/10/2023 Body mass index (BMI) 50.0-59.9, adult ([facility]) Cellulitis of left lower extremity Cervical cancer ([facility]) 09/17/2023 Chronic pain of both knees 09/17/2023 COPD (chronic obstructive pulmonary disease) ([facility]) 07/10/2023 COPD exacerbation ([facility]) 09/17/2023 Decreased functional mobility 09/17/2023 Diabetic neuropathy ([facility]) 07/10/2023 Dietary counseling and surveillance Edema 07/10/2023 Elevated sed rate Elevated WBC count Essential (primary) hypertension GERD (gastroesophageal reflux disease) 09/17/2023 Hyperlipidemia 09/17/2023 Hypertension 07/10/2023 Insomnia 09/17/2023 intermediate manager (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 ([facility]) Lower extremity edema 09/17/2023 Mixed hyperlipidemia Morbid (severe) obesity due to excess calories ([facility]) Obstructive sleep apnea 07/10/2023 PAD (peripheral artery disease) 09/17/2023 Pancreatitis ([facility]) 09/17/2023 Pneumonia 09/17/2023 Proteinuria, unspecified Pulmonary hypertension ([facility]) 09/17/2023 Radiculopathy, lumbar region 09/17/2023 Tobacco user 09/17/2023 Type 2 diabetes mellitus with complication, with long-term current use of insulin ([facility]) 07/10/2023 Unilateral primary osteoarthritis, right [...] is 7.4%!!! COPD (chronic obstructive pulmonary disease) ([facility]) Follows with samsa Needs smoking cessation Current meds: duoneb, albuterol, daliresp, Asthma ([facility]) Current meds: albuterol, duoneb, Has finisher hot strip 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 Hypertension Please check blood [...] MG tablet Pulmonary hypertension (HCC) Has seen [facility] Cardiology Hyperlipidemia On statin therapy Check labs [...] Morbid (severe) obesity due to excess calories ([facility]) Discussed with patient their BMI (actual, verses [...] EDTAssociated Problem(s): Pulmonary hypertension (HCC) Has seen [facility] Cardiology * Mckayla Blas NP - 01/26/2025 [...] Care Team (Late st Contact Info) Description 04/29/2025 6:00 PM EDT Office Visit [facility] [address] [place] [address] Mckayla Blas NP [address] [place] [address] 05/28/2025 10:30 AM EST Office Visit [facility] [address] [place] [address] Rain Odonnell MD [address] [place] [address] 02/01/2026 6:00 PM EDT Office Visit [facility] [address] [place] [address] Mckayla Blas NP [address] [place] [address] documented as of this encounter Visit Diagnoses Diagnosis Encounter for subsequent annual wellness visit (AWV) in Medicare patient- Primary Mixed hyperlipidemia Mixed hyperlipidemia Type 2 diabetes mellitus with complication, with long-term current use of insulin (HCC) Bilateral lower extremity edema Gastro-esophageal reflux disease without esophagitis Chronic diastolic heart failure (HCC) Chronic diastolic heart failure Primary hypertension Unspecified essential hypertension Pulmonary hypertension (HCC) Other chronic pulmonary heart diseases Diabetic polyneuropathy associated with type 2 diabetes mellitus (HCC) Pulmonary emphysema, unspecified emphysema type (HCC) Moderate persistent asthma without complication (HCC) Insomnia Insomnia, unspecified Non-seasonal allergic rhinitis, unspecified trigger Type 2 diabetes mellitus with unspecified complications (HCC) Anxiety and depression Antibiotic-induced yeast infection Chronic obstructive pulmonary disease, unspecified (HCC) Hyperlipidemia, unspecified Vaginal yeast infection Candidiasis of vulva and vagina Morbid (severe) obesity due to excess calories ([facility]) documented in this encounter Additional Health Concerns Assessment Noted Time PHQ-9 Depression Total Score: 3 01/17/20 24 10:08 AM EDT documented as of this encounter Care Teams Iap Displays Analyst Relationship Specialty Start Date End Date Ty Amin MD [address] [place] [address] PCP - General Family Medicine 09/20/23 Mckayla Blas, SILVANO [address] [place] [address] Nurse Practitioner Family Medicine 09/20/23 documented as of this encounter
--- OUTSIDE RECORDS SUMMARY | 2025-01-29 09:40 | XMS_ITS | Encounter Summary ---
Author Organization [facility] Address [address] [place] [address] Care Team Providers Care Inner Diameter Grinder Tool Name Role Phone Ty Amin MD Primary Care Provider [phone] Mckayla Blas NP Unavailable [phone] Reason for Visit * Reason Comments Diabetes Encounter Details Date Type Department Care Team (Late st Contact Info) Description 01/29/2025 9:40 AM EDT Office Visit [facility] [address] [place] [address] Rain Souza MD [address] [place], [place] [phone] Encounter for dietary consultation (Primary Dx); Type 2 diabetes mellitus with hyperglycemia, with long-term current use of insulin (HCC); Vitamin D deficiency; Primary hypertension ; Insulin long-term use (HCC); Hyperlipemia, mixed ; Microalbuminuria; Class 3 severe obesity due to excess calories with serious comorbidity and body mass index (BMI) of 50.0 to 59.9 in adult ([facility]) Social History Tobacco Use Types Packs/Day Years Used Date Smoking Tobacco: Every Day Cigarettes Smokeless Tobacco: Never Tobacco Cessation:Ready to Q uit: Not Asked; Counseling Given: Not Answered Alcohol Use Standard Drinks/Week Comments Never 0 [...] week 08/26/2024 How often do you attend up health system or evangelical services? More than 4 times per year [...] Recorded Patient Health Questionnaire-2 Score 0 01/26/2025 [facility] - Occupational [...] in a half-way (including now)? No 07/10/2023 Housing Stability Vital Sign Answer Wilmer e Recorded In the last 12 months, was t here a time when you were not able to pay the mortgage or rent on time? No 08/26/2024 Number of Times Moved in the Last Year Not on fi le 08/26/2024 At any time in the past 12 m [facility], were you homeless or living in a half-way (including now)? No 08/26/2024 Comments Unknown Sex and Gender Information Value Date Recorded Sex Assigned at Not on file Legal Sex Female 6:50 PM EDT Gender Identity Not on file Sexual Orientation Not on file documented as of this encounter Last Filed Vital Signs Vital Sign Reading Time Taken Comments Blood Pressure 130/70 01/29/2025 9:48 AM EDT Pulse 72 01/29/2025 9:48 AM EDT Temperature - - Respiratory Rate 16 01/29/2025 9:48 AM EDT Oxygen Saturation 84% 01/29/2025 9:48 AM EDT Inhaled Oxygen Concentration - - Weight 163 kg (360 lb) 01/29/2025 9:48 AM EDT Height 170.2 cm (5' 7 ) 01/29/2025 9:48 AM EDT Body Mass Index 56.38 01/29/2025 9:48 AM EDT documented in this encounter Progress Notes * Rain Souza MD - 01/29/2025 9:40 AM EDT Images from the original note were not included. Mitzi Macias is a 54 y.o. female No ref. provider found presents with chief complaint of Diabetes HPI: IM 01/2025 follow up visit on 01/29/2025 , A1c in the office 8.4 , bg 121, on lantus 58 units bid, lispro 8-10-12 units plus ISS, mounjaro 15 mg weekly, farxia 5 mg daily. IM 10/2024 follow up visit on 10/08/2024 [...] 96, on lantus 58 units bid, lispro 2-70-55jbhtc plus ISS, Trulicity 4.5 mg weekly. meter give us error during download IM 03/2022 follow up visit on 03/14/2022, A1c in the office 9.4, bg 142, on lantus 58 units bid, lispro 0-65-80cydct plus ISS, Trulicity 4.5 mg weekly. lab [...] uncontrolled diabetes. A1c 10.3. She has had diabetessince 2007. Currently, she is on Lantus 58 [...] Nightly ammonium lactate (Lac-Hydrin) 12 % lotion aspirin 81 mg, Oral, Daily baclofen (LIORESAL) [...] 25 mg, Oral, 2 times daily HYDROcodone-acetaminophen (Cedar) 5-325 MG tablet 1 tablet, 3 times daily PRN HySept 0.25 % external solution APPLY TO GAUZE AND PLACE ON RIGHT LOWER LEG ULCERS, CHANGE DAILY insulin glargine (LANTUS) 58 Units, Subcutaneous, 2 times daily Insulin Lispro (HUMALOG KWIKPEN [...] glass of water. ALLERGIES: No Known Allergies Past Medical History: Diagnosis Date Abnormal chest CT Albuminuria 09/17/2023 Angiomyolipoma Anxiety and depression 07/10/2023 Asthma ([facility]) 07/10/2023 Body mass index (BMI) 50.0-59.9, adult ([facility]) Cellulitis of left lower extremity Cervical cancer ([facility]) 09/17/2023 Chronic pain of both knees 09/17/2023 COPD (chronic obstructive pulmonary disease) ([facility]) 07/10/2023 COPD exacerbation ([facility]) 09/17/2023 Decreased functional mobility 09/17/2023 Diabetic neuropathy (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) Lower extremity edema 09/17/2023 Mixed hyperlipidemia Morbid (severe) obesity due to excess calories ([facility]) Obstructive sleep apnea 07/10/2023 PAD (peripheral artery disease) 09/17/2023 Pancreatitis ([facility]) 09/17/2023 Pneumonia 09/17/2023 Proteinuria, unspecified Pulmonary hypertension ([facility]) 09/17/2023 Radiculopathy, lumbar region 09/17/2023 Tobacco user 09/17/2023 Type 2 diabetes mellitus with complication, with long-term current use of insulin ([facility]) 07/10/2023 Unilateral primary osteoarthritis, right hip 09/17/2023 Vaginal yeast infection 08/17/2023 Venous insufficiency 09/17/2023 Vitamin D deficiency, unspecified Past Surgical History: Procedure Laterality Date CERVIX SURGERY removal of pre cancer cell from cervix CHOLECYSTECTOMY 2018 HYSTERECTOMY PARTIAL HYSTERECTOMY 2002 TOE SURGERY Left Ulcer debridement REVIEW OF [...] recent change. No heart burn, liver or gallbladderdisease; no rectal bleeding or pain : No urinary pain , frequency or odor. MUSCULOSKELETAL: No muscle pain or cramps; no extremity weakness.No joint pain, stiffness, swellingor limitation of movement NEUROLOGY: No H/O seizures, stroke or fainting. No weakness, tremors. Hematology: No bleeding problems or excessive bruising ENDOCRINE: No increase in hunger, thirst or urination; admits compliance to medical management plan Feet: numbness tingling yes , ulcers or skin break no Lab Results Component Value Date HGBA1C 8.4 01/29/2025 HGBA1C 7.4 10/08/2024 HGBA1C 9.2 05/27/2024 Lab Results Component Value Date GLU 121 01/29/2025 GLU 97 10/08/2024 GLU 65 (L) 10/08/2024 05/27/2024 10:20 AM 08/27/2024 5:44 PM 10/08/2024 11:21 AM 10/27/2024 2:11 PM 12/09/2024 10:19 AM 01/26/2025 6:11 PM 01/29/2025 9:48 AM Vitals BMI 56.7 kg/m2 57.31 kg/m2 55.91 kg/m2 56.51 kg/m2 58.64 kg/m2 56.38 kg/m2 BSA (m2) 2.78 m2 2.8 m2 2.77 m2 2.78 m2 2.83 m2 2.78 m2 Systolic 128 134 130 132 150 126 130 Diastolic 66 76 70 74 76 82 70 Heart Rate 72 83 70 75 71 81 72 SpO2 91 % 91 % 90 % 88 % 90 % 84 % Temp 98 ??F 98.7 ??F 98 ??F 98.5 ??F Resp 16 18 16 18 20 20 16 Height (in) 5' 7 5' 7 5' 7 5' 7 Weight (lb) 362 365.9 357 360.8 374.4 360 Visit Report Report Report Report Report Report Report Report ASSESSMENT AND PLAN: Assessment/Plan Diagnoses and all orders for this visit: Encounter for dietary consultation Type 2 diabetes mellitus with hyperglycemia, with long-term current use of insulin ([facility]) - POCT glycosylated hemoglobin (Hb A1C) docked device - POCT glucose manually resulted - insulin glargine (Lantus) 100 UNIT/ML injection; Inject 58 Units under the skin in the morning and 58 Units before bedtime. We will continue with Lantus 58 units bid, lispro 02-16-12 according to meal size, Mounjaro 15 mg once weekly, Farxiga 5 mg once a day. Vitamin D deficiency Primary hypertension Insulin long-term use (HCC) Hyperlipemia, mixed Microalbuminuria Class 3 severe obesity due to excess calories with serious comorbidity and body mass index (BMI) of50.0 to 59.9 in adult ([facility]) Diet and exercise reviewed with the patient Follow up in about 4 months (around 06/01/2025). documented in this encounter Plan of Treatment Upcoming Encounters Date Type Department Care Team (Late st Contact Info) Description 04/29/2025 6:00 PM EDT Office Visit [facility] [address] [place] [address] Mckayla Blas NP [address] [place] [address] 05/28/2025 10:30 AM EST Office Visit [facility] [address] [place] [address] Rain Souza MD [address] [place] [address] 02/01/2026 6:00 PM EDT Office Visit [facility] [address] [place] [address] Mckayla Blas NP [address] [place] [address] documented as of this encounter Procedures Procedure Name Priority Date/Time Associated Diagnosis Comments POCT GLYCOSYLATED HEMOGLOBIN (HGB A1C) Routine 01/29/2025 9:57 AM EDT Type 2 diabetes mellitus with hyperglycemia, with long-term current use of insulin (HCC) POCT GLUCOSE Routine 01/29/2025 9:57 AM EDT Type 2 diabetes mellitus with hyperglycemia, with long-term current use of insulin (HCC) documented in this encounter Results * (ABNORMAL) POCT glucose manually resulted (01/29/2025 9:57 AM EDT) [facility] Glucose Blood, POC 121 mg/dL Blood Capillary blood specimen / Unknown 01/29/2025 9:57 AM EDT Rain Souza MD POINT OF CARE TEST ENTER/EDIT ORDERABLES Final Result * (ABNORMAL) POCT glycosylated hemoglobin (Hb A1C) docked device (01/29/2025 9:57 AM EDT) Hemoglobin A1C 8.4 Blood Venous blood specimen / Unknown 01/29/2025 9:57 AM EDT Rain Souza MD POINT OF CARE TEST ENTER/EDIT ORDERABLES Final Result documented in this encounter Visit Diagnoses Diagnosis Encounter for dietary consultation- Primary Type 2 diabetes mellitus with hyperglycemia, with long-term current use of insulin (HCC) Vitamin D deficiency Primary hypertension Unspecified essential hypertension Insulin long-term use ([facility]) Encounter for long-term (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 Hyperlipemia, mixed Mixed hyperlipidemia Microalbuminuria Proteinuria Class 3 severe obesity due to excess calories with serious comorbidity and body mass index (BMI) of 50.0 to 59.9 in adult ([facility]) documented in this encounter Additional Health Concerns Assessment Noted Time PHQ-9 Depression Total Score: 3 01/17/20 24 10:08 AM EDT documented as of this encounter Care Teams Inner Diameter Grinder Tool Relationship Specialty Start Date End Date Ty Amin MD [address] [place] [address] PCP - General Family Medicine 09/20/23 Mckayla Blas NP [address] [place] [address] Nurse Practitioner Family Medicine 09/20/23 documented as of this encounter
--- OUTSIDE RECORDS SUMMARY | 2025-01-29 12:04 | XMS_ITS | Encounter Summary ---
Author Organization [facility] Address [address] [place] [address] Care Team Providers Care Reconnaissance Crewmember Name Role Phone Ty Amin MD Primary Care Provider [phone] Ty Amin MD Primary Care Provider [phone] Mckayla Blas PARTS PICKER Unavailable [phone] Mckayla Blas PARTS PICKER Unavailable [phone] Encounter Details Date Type Department Care Team (Late st Contact Info) Description 09/12/2023 Orders Only [facility] [address] [place] [address] Social History Tobacco Use Types Packs/Day Years [...] How often do you attend chur or tenriism services? 1 to 4 times [...] Recorded Patient Health Questionnaire-2 Score 2 07/10/2023 [facility] - [...] 04/29/2025 6:00 PM EDT Office Visit [facility] [address] [place] [address] Mckayla Blas, SILVANO [address] [place] [address] 05/28/2025 10:30 AM EST Office Visit [facility] [address] [place] [address] Rain Souza MD [address] [place] [address] 02/01/2026 6:00 PM EDT Office Visit [facility] [address] [place] [address] Mckayla Blas NP [address] [place] [address] documented as of this encounter Procedures Procedure Name Priority Date/Time Associated Diagnosis Comments XR CHEST 1 VIEW Routine 09/11/2023 4:52 PM EST documented in this encounter Results * XR chest 1 view (09/11/2023 4:52 PM EST) Anatomical Region Laterality Modality Chest Radiographic Kalani ging [facility] IMG XR PROCEDURES Final Result documented in this encounter Visit Diagnoses Not on filedocumented in this encounter Care Teams Reconnaissance Crewmember Relationship Specialty Start Date End Date Ty Amin MD PCP - General Family Medicine 01/05/23 09/19/23 Ty Amin MD [address] [place] [address] PCP - General Family Medicine 09/20/23 Mckayla Blas NP [address] [place] [address] PCP - [facility] 09/07/23 01/11/25 Mckayla Blas NP [address] [place] [address] Nurse Practitioner Family Medicine 09/20/23 documented as of this encounter
--- OUTSIDE RECORDS SUMMARY | 2025-01-29 12:04 | XMS_ITS | Encounter Summary ---
Author Organization [facility] Address [id number] [address] [place] [address] Care Team Providers Care Boarding Mother Name Role Phone JuanjoseMckayla carcamo Krystal MILIEU COUNSELOR-BAR MACHINE OPERATOR MULTIPLE SPINDLE Primary Care Provider Encounter Details Date Type Department Care Team (Late st Contact Info) Description 06/11/2020 Orders Only [facility] [address] [place] [address] External, Scanning Provider Social History Tobacco Use [...] on filedocumented in this encounter Care Teams Boarding Mother Relationship Specialty Start Date End Date Mckayla Blas, MILIEU COUNSELOR-BAR MACHINE OPERATOR MULTIPLE SPINDLE [address] [place] [place] [address] PCP - General Nurse Practitioner 09/25/18 documented as of this encounter
--- OUTSIDE RECORDS SUMMARY | 2025-01-29 12:04 | XMS_ITS | Encounter Summary ---
Author Organization [facility] tem Address [id number] [address] [place] [address] Care Team Providers Care Running Instructor Name Role Phone JuanjoseMckayla carcamo Krystal BUDGET COORDINATOR-TARRING MACHINE OPERATOR Primary Care Provider Encounter Details Date Type Department Care Team (Late st Contact Info) Description 05/31/2020 Orders Only [facility] [address] [place] [address] External, Scanning Provider Social History Tobacco Use [...] on filedocumented in this encounter Care Teams Running Instructor Relationship Specialty Start Date End Date Mckayla Blas, BUDGET COORDINATOR-TARRING MACHINE OPERATOR [address] [place] [address] PCP - General Nurse Practitioner 09/25/18 documented as of this encounter
--- OUTSIDE RECORDS SUMMARY | 2025-01-29 12:04 | XMS_ITS | Encounter Summary ---
Author Organization [facility] Address [id number] [address] [place] [address] Care Team Providers Care Utility Locator Name Role Phone Mckayla Blas APRN-WIND TUNNEL ENGINEER Primary Care Provider Encounter Details Date Type Department Care Team (Late st Contact Info) Description 05/03/2020 [facility] [address] [place] [address] Tramaine Romero [address], [address] [phone] Social History Tobacco Use Types Packs/Day Years [...] on filedocumented in this encounter Care Teams Utility Locator Relationship Specialty Start Date End Date Mckayla Blas [place]N-[place] [address] PCP - General Nurse Practitioner 09/25/18 documented as of this encounter
--- OUTSIDE RECORDS SUMMARY | 2025-01-29 12:04 | XMS_ITS | Encounter Summary ---
Author Organization [facility] Address [address] [place] [address] Care Team Providers Care Ticket Maker Name Role Phone Ty Amin MD Primary Care Provider [phone] Ty Amin MD Primary Care Provider [phone] Mckayla Blas POLYMERIZATION ENGINEER Unavailable [phone] Mckayla Blas POLYMERIZATION ENGINEER Unavailable [phone] Encounter Details Date Type Department Care Team (Late st Contact Info) Description 08/31/2023 Clinisync Result Encounter [facility] External Department Unsolicited Andra Alcala PA [address] [place] [address] Dr Price [place], [place] [id number] Social History Tobacco Use Types Packs/Day Years [...] any clubs o r organizations such as voodoo groups, unions, fraternal or athletic groups, or [...] Patient Health Questionnaire-2 Score 2 07/10/2023 [facility] - Occupational Stress Questionnaire [...] 04/29/2025 6:00 PM EDT Office Visit [facility] [address] [place] [address] Mckayla Blas NP [address] [place] [address] 05/28/2025 10:30 AM EST Office Visit [facility] [address] [place] [address] Rain Souza MD [address] [place] [address] 02/01/2026 6:00 PM EDT Office Visit [facility] [address] [place] [address] Mckayla Blas NP [address] [place] [address] documented as of this encounter Procedures Procedure [...] AT 5 DAYS.^NO GROWTH AT 5 DAYS. [facility] 09/10/2023 2:22 PM EST 09/10/2023 2:29 PM EST Narrative [facility] - 09/16/2023 1:07 PM EDT us Generic External Data Provider LAB BLOOD ORDERAB LES [facility] BLOOD CULTURE 1 (09/10/2023 2:05 PM EST) BLOOD CULTURE 1 Blood Culture 1 NG5D NO GROWTH AT 5 DAYS.^NO GROWTH AT 5 DAYS. TB 09/10/2023 2:05 PM EST 09/10/2023 2:28 PM EST Narrative [facility] - 09/16/2023 1:07 PM EDT Generic External Data Provider LAB BLOOD ORDERAB LES Final Result [facility] * ECG 12-LEAD (08/31/2023 6:08 PM EST) Anatomical Region Laterality Modality Other 08/31/2023 6:08 PM EST Narrative 09/02/2023 7:32 AM EST [address] [address] Electrocardiograph Report Signed Patient: MITZI MACIAS MR#: [id number] : 1970 Acct:[id number] Age/Sex: 53 / F ADM Date: 08/31/23 Loc: MS 214-[address]: Jacqueline Becerra D.O. 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 Signed By: 09/02/23 0732 DD/ 1808 TD/TT: Barrel Cleaner: Procedure Note Radiology, Radiologist, - 09/02/2023 [place] [address] Electrocardiograph Report Signed Patient: MITZI MACIAS LMR#: [id number] : 1970Acct:[id number] Age/Sex: 53 / FADM Date: 08/31/23 Loc: MS 214-[address]: Jacqueline Becerra D.O. 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 Signed By:09/02/23 0732 DD/ 1808 TD/TT: Barrel Cleaner: Andra [facility] Final Result documented in this encounter Visit Diagnoses Not on filedocumented in this encounter Care Teams Ticket Maker Relationship Specialty Start Date End Date Ty Amin MD PCP - General Family Medicine 01/05/23 09/19/23 Ty Amin MD [address] [place] [address] PCP - General Family Medicine 09/20/23 Mckayla Blas NP [address] [place] [address] PCP - [facility] 09/07/23 01/11/25 Mckayla Blas NP [address] [place] [address] Nurse Practitioner Family Medicine 09/20/23 documented as of this encounter
--- OUTSIDE RECORDS SUMMARY | 2025-01-29 12:04 | XMS_ITS | Encounter Summary ---
Author Organization [facility] Address [address] [place] [address] Care Team Providers Care Slaughterer Religious Ritual Name Role Phone Ty Amin MD Primary Care Provider [phone] Mckayla Blas CATTLE DIPPER Unavailable [phone] Mckayla Blas CATTLE DIPPER Unavailable [phone] Encounter Details Date Type Department Care Team (Late st Contact Info) Description 01/07/2025 Abstract [facility] [address] [place] [address] Mckayla Blas NP [address] [place] [address] Social History Tobacco Use Types [...] often do you attend chur ch or islam services? More than 4 times per year [...] Recorded Patient Health Questionnaire-2 Score 1 01/17/2024 [facility] - [...] time in the past 12 m [facility], were you homeless or living in a [...] Visit [facility] [address] [place] [address] Mckayla Blas NP [address] [place] [address] 05/28/2025 10:30 AM EST Office Visit [facility] [address] [place] [address] Rain Souza MD [address] [place] [address] 02/01/2026 6:00 PM EDT Office Visit [facility] [address] [place] [address] Mckayla Blas, SILVANO [address] [place] [address] documented as of this encounter Visit Diagnoses Not on filedocumented in this encounter Additional Health Concerns Assessment Noted Time PHQ-9 Depression Total Score: 3 01/17/20 10:08 AM EDT documented as of this encounter Care Teams Slaughterer Religious Ritual Relationship Specialty Start Date End Date Ty Amin MD [address] [place] [address] PCP - General Family Medicine 09/20/23 Mckayla Blas NP [address] [place] [address] PCP - [facility] 09/07/23 01/11/25 Mckayla Blas NP [address] [place] [address] Nurse Practitioner Family Medicine 09/20/23 documented as of this encounter
--- OUTSIDE RECORDS SUMMARY | 2025-01-29 12:04 | XMS_ITS | Encounter Summary ---
Author Organization [facility] Address [address] [place] [address] Care Team Providers Care Felled Seam Operator Chainstitch Name Role Phone Ty Amin MD Primary Care Provider [phone] Mckayla Blas SUPERVISOR SLITTING AND SHIPPING Unavailable [phone] Mckayla Blas SUPERVISOR SLITTING AND SHIPPING Unavailable [phone] Encounter Details Date Type Department Care Team (Late st Contact Info) Description 07/14/2024 Orders Only [facility] [address] [place] [address] Mckayla Blas SUPERVISOR SLITTING AND SHIPPING [address] [place] [address] Social History Tobacco Use Types Packs/Day Years [...] any clubs o r organizations such as sikh groups, unions, fraternal or athletic groups, or [...] Recorded Patient Health Questionnaire-2 Score 1 01/17/2024 [facility] [...] 04/29/2025 6:00 PM EDT Office Visit [facility] [address] [place] [address] Mckayla Blas, SUPERVISOR SLITTING AND SHIPPING [address] [place] [address] 05/28/2025 10:30 AM EST Office Visit [facility] [address] [place] [address] Rain Souza MD [address] [place] [address] 02/01/2026 6:00 PM EDT Office Visit [facility] [address] [place] [address] Mckayla Blas NP [address] [place] [address] documented as of this encounter Procedures Procedure [...] documented as of this encounter Care Teams Felled Seam Operator Chainstitch Relationship Specialty Start Date End Date Ty Amin MD [address] [place] [address] PCP - General Family Medicine 09/20/23 Mckayla Blas NP [address] [place] [address] PCP - [facility] 09/07/23 01/11/25 Mckayla Blas NP [address] [place] [address] Nurse Practitioner Family Medicine 09/20/23 documented as of this encounter
--- OUTSIDE RECORDS SUMMARY | 2025-01-29 12:04 | XMS_ITS | Encounter Summary ---
Author Organization [facility] tem Address [facility] [id number] [address] [place] [address] Care Team Providers Care Digestion Operator Name Role Phone JuanjoseMckayla carcamo Krystal RACING MANAGER-CLIENT SERVICES VICE PRESIDENT Primary Care Provider Encounter Details Date Type Department Care Team (Late st Contact Info) Description 05/31/2020 Orders Only [facility] [address] [place] [address] External, Scanning Provider Social History Tobacco Use [...] ECG ORDERABLES Final Result Performing Organization Address [facility] Co de Phone Number MANUALLY TRANSCRIBED RESULTS [...] ECG ORDERABLES Final Result Performing Organization Address [facility] Co de Phone Number MANUALLY TRANSCRIBED RESULTS * Pulmonary function test (10/24/2018) us Scanning Provider External PFT ORDERABLES Final Result Performing Organization Address [facility] Co de Phone Number MANUALLY TRANSCRIBED RESULTS * Nuc stress Lexiscan/Exercise (12/12/2016) Anatomical Region Laterality Modality Chest N/A Nuclear Medicine us Scanning Provider External CV STRESS ORDERABLES Final Result documented in this encounter Visit Diagnoses Not on filedocumented in this encounter Care Teams Digestion Operator Relationship Specialty Start Date End Date Mckayla Blas, RACING MANAGER-CLIENT SERVICES VICE PRESIDENT [address] [place] [address] PCP - General Nurse Practitioner 09/25/18 documented as of this encounter
--- OUTSIDE RECORDS SUMMARY | 2025-01-29 12:05 | XMS_ITS | Encounter Summary ---
Author Organization [facility] Address [address] [place] [address] Care Team Providers Care Kindergarten Paraprofessional Name Role Phone Ty Amin MD Primary Care Provider [phone] Mckayla Blas NP Unavailable [phone] Mckayla Blas NP Unavailable [phone] Encounter Details Date Type Department Care Team (Late st Contact Info) Description 05/12/2024 Orders Only [facility] [address] [place] [address] Angela Cochran NP [address] [place] [address] Social History Tobacco Use Types [...] any clubs o r organizations such as restorationism groups, unions, fraternal [...] [facility] - Occupational Stress Questionnaire Answer Date [...] place to sleep or slept in a longterm (including now)? No 07/10/2023 Comments Unknown Sex and Gender Information Value Date Recorded Sex Assigned at Not on file Legal Sex Female 6:50 PM EDT Gender Identity Not on file Sexual Orientation Not on file documented as of this encounter Plan of Treatment Upcoming Encounters Date Type Department Care Team (Late st Contact Info) Description 04/29/2025 6:00 PM EDT Office Visit [facility] [address] [place] [address] Mckayla Blas NP [address] [place] [address] 05/28/2025 10:30 AM EST Office Visit [facility] [address] [place] [address] Rain Souza MD [address] [place] [address] 02/01/2026 6:00 PM EDT Office Visit [facility] [address] [place] [address] Mckayla Blas NP [address] [place] [address] documented as of this encounter Procedures Procedure Name Priority Date/Time Associated Diagnosis Comments MR LUMBAR SPINE WO CONTRAST Routine 05/12/2024 3:27 PM EST documented in this encounter Results * MR lumbar spine wo contrast (05/12/2024 3:27 PM EST) Anatomical Region Laterality Modality Spine, L-spine Magnetic Resonan ce Angela Cochran NP [facility] MRI PROCEDURES Final Result documented in this encounter Visit Diagnoses Not on filedocumented in this encounter Additional Health Concerns Assessment Noted Time PHQ-9 Depression Total Score: 3 01/17/20 24 10:08 AM EDT documented as of this encounter Care Teams Kindergarten Paraprofessional Relationship Specialty Start Date End Date Ty Amin MD [address] [place] [address] PCP - General Family Medicine 09/20/23 Mckayla Blas NP [address] [place] [address] PCP - [facility] 09/07/23 01/11/25 Mckayla Blas NP [address] [place] [address] Nurse Practitioner Family Medicine 09/20/23 documented as of this encounter
--- OUTSIDE RECORDS SUMMARY | 2025-01-29 12:05 | XMS_ITS | Encounter Summary ---
Author Organization [facility] Address [address] [place] [address] Care Team Providers Care Instructor Kindergarten Name Role Phone Ty Amin MD Primary Care Provider [phone] Mckayla Blas MANAGEMENT MANAGER Unavailable [phone] Mckayla Blas MANAGEMENT MANAGER Unavailable [phone] Reason for Visit * Reason Comments Med Refill Encounter Details Date Type Department Care Team (Late st Contact Info) Description 11/27/2023 Refill [facility] [address] [place] [address] Mckayla Blas NP [address] [place] [address] Chronic obstructive pulmonary disease, unspecified (HCC) Social [...] How often do you attend chur or confucianism services? 1 to 4 times per year 07/10/2023 Do you belong to any clubs o r organizations such as amish groups, unions, fraternal or athletic groups, or [...] Recorded Patient Health Questionnaire-2 Score 0 11/01/2023 [facility] - Occupational [...] 04/29/2025 6:00 PM EDT Office Visit [facility] [address] [place] [address] Mckayla Blas NP [address] [place] [address] 05/28/2025 10:30 AM EST Office Visit [facility] [address] [place] [address] Rain Souza MD [address] [place] [address] 02/01/2026 6:00 PM EDT Office Visit [facility] [address] [place] [address] Mckayla Blas NP [address] [place] [address] documented as of this encounter Visit Diagnoses Diagnosis Chronic obstructive pulmonary disease, unspecified (HCC) documented in this encounter Care Teams Instructor Kindergarten Relationship Specialty Start Date End Date Ty Amin MD [address] [place] [address] PCP - General Family Medicine 09/20/23 Mckayla Blas NP [address] [place] [address] PCP - [place] 09/07/23 01/11/25 Mckayla Blas NP [address] [place] [address] Nurse Practitioner Family Medicine 09/20/23 documented as of this encounter
--- OUTSIDE RECORDS SUMMARY | 2025-01-29 12:05 | XMS_ITS | Clinical Summary ---
Author Organization [facility] Address [address] [place] [address] Care Team Providers Care Bush Hog Operator Name Role Phone Ty Amin MD Primary Care Provider [phone] Mckayla Blas NP Unavailable [phone] Allergies No known active allergies Medications albuterol HFA 90 mcg/act inhaler Inhale 2 puffs every 4 (four) hours if needed for wheezing Active pen needle 32G x 5 mm misc Inject 5 each under the skin 1 (one) time each day Use as instructed Active albuterol (2.5 MG/3ML) 0.083% nebulizer solution Take 2.5 mg by nebulization every 6 (six) hours if needed for wheezing Active HYDROcodone-aceta minophen ([place]) 5-325 MG tablet 1 tablet as needed in the morning and 1 tablet as needed at noon and 1 tablet as needed in the evening for severe pain. Active diclofenac (Voltaren) 75 MG EC tablet Take 75 mg by mouth in the morning and 75 mg before bedtime. Do not crush, chew, or split. . Active oxygen (O2) gas Inhale 2 L/min continuously via nasal canula Active ipratropium-albut gilbert (Duo-Neb) 0.5-2.5 mg/3 mL nebulizer solution Daily as needed Acti ve Insulin Lispro (HUMALOG KWIKPEN SC) Inject under the skin in the morning and at noon and in the evening. Inject before meals. 8-10-12 units before meals and sliding scale. Active pregabalin (Lyrica) 300 MG capsuleIndication s:Diabetic [...] Active ammonium lactate (Lac-Hydrin) 12 % lotion 07/22/19 25 Active HySept 0.25 % external [...] full glass of water. 60 tablet 1 12/20/19 25 025 Active ergocalciferol (Vitamin D2) 1.25 MG (14690 UT) capsuleIndication s:Vitamin D deficiency, unspecified Take [...] (81 mg) Daily 90 tablet 3 01/27/20 Active cetirizine (ZyrTEC) 10 MG tabletIndications :Non-seasonal [...] Once finished then resume 2 tablet 1 01/27/20 25 Active furosemide (Lasix) 20 MG tabletIndications :Bilateral lower extremity edema Take 1 tablet (20 mg) by mouth Daily as needed (edema) Take in the afternoon as needed 90 tablet 01/27/20 025 Active furosemide (Lasix) 40 MG tabletIndications :Bilateral lower extremity edema Take 1 tablet (40 mg) by mouth Daily 90 tablet 01/27/20 025 Active hydrALAZINE (Apresoline) 25 MG tabletIndications [...] at bedtime 90 tablet 01/27/20 025 Active insulin glargine (Lantus) 100 UNIT/ML injectionIndicati ons:Type 2 diabetes mellitus with hyperglycemia, with long-term current use of insulin (HCC) Inject 58 Units under the skin in the morning and 58 Units before bedtime. 104.4 mL 01/30/20 25 026 Active insulin glargine (Lantus) 100 UNIT/ML injection Inject 58 Units under the skin in the morning and 58 Units before bedtime. 025 Disconti nued(Reo rder) fluconazole (Diflucan) 150 MG tabletIndications :Antibiotic-induc ed yeast infection One time dose, repeat in 3 days . Do not take cholesterol pill while taking this medication. Once finished then resume 2 tablet 1 08/27/19 25 025 Disconti nued(Reo rder) Roflumilast 500 MCG tabletIndications :Chronic obstructive pulmonary disease, unspecified (HCC) Take 1 tablet by mouth Daily 90 tablet 1 10/22/19 25 025 Disconti nued(Reo rder) amitriptyline (Elavil) 25 MG tabletIndications :Insomnia Take 1 tablet (25 mg) by mouth at bedtime 90 tablet 1 10/28/19 25 025 Disconti nued(Reo rder) aspirin 81 MG chewable tabletIndications :Type 2 diabetes mellitus with complication, with long-term current use of insulin ([facility]) Chew 1 tablet (81 mg) Daily 90 tablet 3 10/28/19 25 025 Disconti nued(Reo rder) cetirizine (ZyrTEC) 10 MG tabletIndications :Non-seasonal allergic rhinitis, unspecified trigger Take 1 tablet (10 mg) by mouth Daily 90 tablet 1 10/28/19 25 025 Disconti nued(Reo rder) dapagliflozin (Farxiga) 10 MGIndications:Typ e 2 diabetes mellitus with unspecified complications ([facility]) Take 1 tablet (10 mg) by mouth Daily 90 tablet 1 10/28/19 25 025 Disconti nued(Reo rder) DULoxetine (Cymbalta) [address] capsuleIndication s:Anxiety and depression Take 1 capsule (60 mg) by mouth in the morning and 1 capsule (60 mg) before bedtime. Do not crush or chew. 180 capsule 1 10/28/19 25 025 Disconti nued(Reo rder) ergocalciferol (Vitamin D2) 1.25 MG (54180 UT) capsuleIndication s:Vitamin D deficiency, unspecified Take [...] wrapped, 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 as possible assisted current use of inhaled steroid 025 Non-pressure [...] see if helps Encounter for subsequent [facility] wellness visit (AWV) in Medicare patient [...] can try ubrelvy #3 samples given: Lot [id number], exp 03/2025 Mixed incontinence 11/14/2023 Arthritis 11/14/2023 [...] is necessary they take over prescribing Pancreatitis ([facility]) 09/17/2023 COPD exacerbation 09/17/2023 Assessment & Plan [...] 11:17 AM EDT): Open wounds refer to [facility] Wound Care Pulmonary hypertension 09/17/2023 Assessment & Plan (01/26/2025 7:52 AM EDT): Has seen [facility] Cardiology Assessment & Plan (12/09/2024 7:23 AM EDT): Has seen [facility] Cardiology Assessment & Plan (11/15/2023 3:49 PM EDT): Saw [facility] Cardiology See notes Going to see Pulmonary Assessment & Plan (09/27/2023 1:03 PM EDT): Needs to wear her PAP I am also going to have her see [facility] Cardiology as well PAD (peripheral [...] Plan (01/26/2025 7:53 AM EDT): Continue with lyrica pain mgmt is prescribing OARRS reviewed Fu in 3 months Goal: tighter glucose control, this has been improving, latest A1c is 7.4%!!! Assessment & Plan (10/27/2024 2:37 PM EDT): Continue with lyrica, pain mgmt is prescribing OARRS reviewed Fu in 3 months Goal: tighter glucose control, this has been improving, latest A1c is 7.4%!!! 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 Assessment & Plan (01/17/2024 [...] lost script I [facility] contact [facility] [place], [facility] will get another fill on this [...] Plan (07/10/2023 11:59 AM EST): Continue w lasjudith, discussed skin care regimines as well RAGHU [...] Encounters Date Type Department Care Team Description 01/29/2025 9:40 AM EDT Office Visit [facility] [address] [place] [address] Rain Odonnell MD Encounter for dietary consultation (Primary Dx); Type 2 diabetes mellitus with hyperglycemia, with long-term current use of insulin (HCC); Vitamin D deficiency; Primary hypertension ; Insulin long-term use ([facility]); Hyperlipemia, mixed ; Microalbuminuria; Class 3 severe obesity due to excess calories with serious comorbidity and body mass index (BMI) of 50.0 to 59.9 in adult ([facility]) 01/29/2025 Bamboo flowsheet [facility] [address] [place] [address] Rain Odonnell MD 01/26/2025 6:00 PM EDT Office Visit [facility] [address] [place] [address] Mckayla Blas NP Encounter for subsequent annual wellness visit (AWV) [...] type (HCC); Moderate persistent asthma without complication (HCC); Insomnia; Non-seasonal allergic rhinitis, unspecified trigger; Type 2 diabetes mellitus with unspecified complications ([facility]); Anxiety and depression ; Antibiotic-induced yeast infection; Chronic obstructive pulmonary disease, unspecified (HCC); Hyperlipidemia, unspecified ; Vaginal yeast infection; Morbid (severe) obesity due to excess calories ([facility]) 01/26/[address] [facility] [address] [place] [address] Mckayla Blas NP 01/19/2025 Travel 01/16/2025 Refill [facility] [address] [place] [address] Amber Pinzon LPN Vitamin D deficiency, unspecified 01/07/[address] [facility] [address] [place] [address] Mckayla Blas NP 01/07/[address] [facility] [address] [place] [address] Mckayla Blas NP 12/18/[address] [facility] [address] [place] [address] Mckayla Blas NP Hyperlipidemia, unspecified ; Tobacco user; Encounter for smoking cessation counseling 12/17/[address] [facility] [address] [place] [address] Mckayla Blas NP Error (VOID this visit) 12/09/2024 10:00 AM EDT Office Visit [facility] [address] [place] [address] Mckayla Blas NP Cellulitis of left lower extremity (Primary Dx); COPD exacerbation (HCC); Primary hypertension ; Pulmonary hypertension (HCC); Morbid (severe) obesity due to excess calories ([facility]); Type 2 diabetes mellitus with complication, with long-term current use of insulin (HCC); Anxiety and depression ; Fever, unspecified fever cause 12/09/[address] [facility] [address] [place] [address] Mckayla Blas NP 12/08/2024 Travel 12/04/2024 Clinisync Result Encounter [facility] External Department Unsolicited Provider, Generic External Data from Last 3 Months Immunizations Immunization Administration Dates Next Due Influenza Whole 05/02/2013 Influenza, [id number] 04/16/2017,05/10/2016 Influenza, Unspecified 05/18/2023,04/16/2017,08/2015 Influenza, injectable, quadrivalent [...] you attend chur ch or mandaeism services? More than 4 times per year [...] Recorded Patient Health Questionnaire-2 Score 0 01/26/2025 [facility] [...] in a residential (including now)? No 07/10/2023 Housing Stability Vital Sign Answer Wilmer e Recorded In the last 12 months, was t here a time when you were not able to pay the mortgage or rent on time? No 08/26/2024 Number of Times Moved in the Last Year Not on fi le 08/26/2024 At any time in the past 12 m [facility], were you homeless or living in a residential (including now)? No 08/26/2024 Comments Unknown Sex and Gender Information Value Date Recorded Sex Assigned at Not on file Legal Sex Female 6:50 PM EDT Gender Identity Not on file Sexual Orientation Not on file Last Filed Vital Signs Vital Sign Reading Time Taken Comments Blood Pressure 130/70 01/29/2025 9:48 AM EDT Pulse 72 01/29/2025 9:48 AM EDT Temperature 36.9 C (98.5 F) 01/26/2025 6:11 PM EDT Respiratory Rate 16 01/29/2025 9:48 AM EDT Oxygen Saturation 84% 01/29/2025 9:48 AM EDT Inhaled Oxygen Concentration - - Weight 163 kg (360 lb) 01/29/2025 9:48 AM EDT Height 170.2 cm (5' 7 ) 01/29/2025 9:48 AM EDT Body Mass Index 56.38 01/29/2025 9:48 AM EDT Plan of Treatment Upcoming Encounters Date Type Department Care Team (Late st Contact Info) Description 04/29/2025 6:00 PM EDT [facility] [address] [place] [address] Mckayla Blas, SILVANO [address] [place] [address] 05/28/2025 10:30 AM EST Office Visit [facility] [address] [place] [address] Rain Odonnell MD [address] [place] [address] 02/01/2026 6:00 PM EDT Office Visit [facility] [address] [place] [address] Mckayla Blas, SILVANO [address] [place] [address] Health Maintenance Due Date Last Done Comments CT Colonography 1970 Colonoscopy 1970 FIT 1970 FOBT 1970 Sigmoidoscopy 1970 HPV/Cotest 2000 Pap Smear 10/07/2018 10/08/2015, 10/08/2015 Mammogram 12/13/2024 12/14/2023, 06/0 01/2024, 11/22/2022 Influenza Vaccine (#1) 2025 , 05/18/2023, 04/16/2017, Additional history exists Diabetes: Hemoglobin A1C 05/01/2025 025, 10/08/2024, 05/27/2024, Additional history exists Diabetes: Retinopathy Screening 07/14/2025 07/14/2024, 05/13/2024, 05/27/2019 Colorectal Cancer Screening 08/03/2025 FIT-DNA 08/03/2025 08/03/2022 Diabetes: Urine Protein Screening 10/08/20252 025, 11/23/2022 Medicare Annual Wellness (AWV) 01/26/2026 0 01/26/2025, 01/17/2024, 01/17/2024 Cervical Cancer Screening Discontinued Procedures Procedure Name Priority Date/Time Associated Diagnosis Comments POCT GLUCOSE Routine 01/29/2025 9:57 AM EDT Type 2 diabetes mellitus with hyperglycemia, with long-term current use of insulin (HCC) POCT GLYCOSYLATED HEMOGLOBIN (HGB A1C) Routine 01/29/2025 9:57 AM EDT Type 2 diabetes mellitus with hyperglycemia, with long-term current use of insulin (HCC) BLOOD CULTURE 2 Routine 12/04/2024 5:28 PM EDT BLOOD CULTURE 1 Routine 12/04/2024 4:44 PM EDT DIABETIC RETINOPATHY SCREENING - OU - BOTH EYES Routine 07/14/2024 3:09 PM EST MM TOMOSYNTHESIS SCREENING BI 12/14/2023 11:21 AM EDT from Last 3 Months or Most Recently Relevant to Health Maintenance Results * (ABNORMAL) POCT glycosylated hemoglobin (Hb A1C) docked device (01/29/2025 9:57 AM EDT) Hemoglobin A1C 8.4 Blood Venous blood specimen / Unknown 01/29/2025 9:57 AM EDT us Rain Odonnell MD POINT OF CARE TEST ENTER/EDIT ORDERABLES Final Result * (ABNORMAL) POCT glucose manually resulted (01/29/2025 9:57 AM EDT) Glucose Blood, POC 121 mg/dL Blood Capillary blood specimen / Unknown 01/29/2025 9:57 AM EDT us Rain Odonnell MD POINT OF CARE TEST ENTER/EDIT ORDERABLES Final Result * BLOOD CULTURE 2 (12/04/2024 5:28 PM EDT) BLOOD CULTURE 2 Blood Culture 2 NG5D NO GROWTH AT 5 DAYS.^NO GROWTH AT 5 DAYS. [facility] 12/04/2024 5:28 PM EDT 12/04/2024 6:18 PM EDT Narrative [facility] - 12/10/2024 2:31 PM EDT LEFT AC us Generic External Data Provider LAB BLOOD ORDERAB LES Final Result Performing Organization Address [facility]/ZIP Co de Phone Number [facility] * BLOOD CULTURE 1 (12/04/2024 4:44 PM EDT) BLOOD CULTURE 1 Blood Culture 1 NG5D NO GROWTH AT 5 DAYS.^NO GROWTH AT 5 DAYS. [facility] 12/04/2024 4:44 PM EDT 12/04/2024 5:17 PM EDT Narrative [facility] - 12/10/2024 2:32 PM EDT us Generic External Data Provider LAB BLOOD ORDERAB LES Final Result Performing Organization Address [facility] de Phone Number [facility] * Diabetic Retinopathy Screening - OU - Both Eyes (07/14/2024 3:09 PM EST) Anatomical Region Laterality Modality Head Other us Mckayla Blas NP OPHTH PHOTOGRAPHY Final Result * MM TOMOSYNTHESIS SCREENING BI (12/14/2023 11:21 AM EDT) Anatomical Region Laterality Modality Other 12/14/2023 11:2 1 AM EDT Narrative 12/14/2023 11:22 AM EDT [address] [address] Mammography Report Signed Patient: MITZI MACIAS MR#: [id number] : 1970 Acct:[id number] Age/Sex: 53 / F ADM Date: 12/13/23 Loc: MAMMO Attending Dr: Mckayla Blas RN POST PARTUM Ordering Physician: Mckayla Blas NP Results: Date of Service: 12/13/23 Follow Up: Procedure(s): MM tomosynthesis screening BI Accession Number(s): [id number] cc: Mckayla Blas NP Patient Name: MITZI MACIAS MR#: [id number] : 1970 Exam Date: 12/13/2023 Ordering Doctor: [...] at age 75. LOCATION: [facility] BREAST COMPOSITION: The breasts are almost [...] Signed By: 12/14/23 1122 DD/ 1121 TD/TT: Physician Ophthalmologist: Procedure Note Radiology, Radiologist, - 12/14/2023 [place] [address] Mammography Report Signed Patient: MITZI MACIAS LMR#: [id number] : 1970Acct:[id number] Age/Sex: 53 / FADM Date: 12/13/23 Loc: MAMMO Attending Dr: Mckayla Blas NP Ordering Physician: Mckayla Blas NPResults: Date of Service: 12/13/23Follow Up: Procedure(s): MM tomosynthesis screening BI Accession Number(s): [id number] cc: Mckayla Blas NP Patient Name: MITZI MACIAS MR#: [id number] : 1970 Exam Date: 12/13/2023 Ordering Doctor: [...] at age 75. LOCATION: [facility] BREAST COMPOSITION: The breasts are almost [...] M.D. Signed By:12/14/23 1122 DD/ 1121 TD/TT: Physician Ophthalmologist: Mckayla Blas RN [facility] IMAGING Final Result from Last 3 Months or Most Recently Relevant to Health Maintenance Insurance MEDICARE [facility] Care Teams Bush Hog Operator Relationship Specialty Start Date End Date Ty Amin MD [address] [place] [address] PCP - General Family Medicine 09/20/23 Mckayla Blas NP [address] [place] [address] Nurse Practitioner Family Medicine 09/20/23
--- OUTSIDE RECORDS SUMMARY | 2025-01-29 12:05 | XMS_ITS | Clinical Summary ---
Author Organization PSafe tem Address [id number] [address] [place] [address] Care Team Providers Care Freelance Court Reporter Name Role Phone Wan Mckayla Krystal PEREZN-AERODYNAMICS ENGINEER Primary Care Provider Allergies No known active [...] Medical Devices Not on file Insurance [place] MED[place]ARE Care Teams Freelance Court Reporter Relationship Specialty Start Date End Date Mckayla Blas APRN-AERODYNAMICS ENGINEER [address] [place] [address] PCP - General Nurse Practitioner 09/25/18
--- OUTSIDE RECORDS SUMMARY | 2025-01-29 12:05 | XMS_ITS | Encounter Summary ---
Author Organization [facility] Address [address] [place] [address] Care Team Providers Care Forest Law And Policy Professor Name Role Phone Ty Amin MD Primary Care Provider [phone] Ty Amin MD Primary Care Provider [phone] Mckayla Blas LAY OUT INSPECTOR Unavailable [phone] Mckayla Blas LAY OUT INSPECTOR Unavailable [phone] Encounter Details Date Type Department Care Team (Late st Contact Info) Description 07/08/2023 [facility] [address] [place] [address] Mckayla Blas NP [address] [place] [address] Social History Tobacco Use Types Packs/Day Years [...] often do you attend chur ch or jain services? 1 to 4 times per year [...] Recorded Patient Health Questionnaire-2 Score 2 07/10/2023 [facility] - Occupational [...] Questionnaire-2 Score 2 07/10/2023 11:17 AM YANI ALNDCA * If you checked off any problems [...] 04/29/2025 6:00 PM EDT Office Visit [facility] [address] [place] [address] Mckayla Blas, SILVANO [address] [place] [address] 05/28/2025 10:30 AM EST Office Visit [facility] [address] [place] [address] Rain Souza MD [address] [place] [address] 02/01/2026 6:00 PM EDT Office Visit [facility] [address] [place] [address] Mckayla Blas, SILVANO [address] [place] [address] documented as of this encounter Visit Diagnoses Not on filedocumented in this encounter Care Teams Forest Law And Policy Professor Relationship Specialty Start Date End Date Ty Amin MD PCP - General Family Medicine 01/05/23 09/19/23 Ty Amin MD [address] [place] [address] PCP - General Family Medicine 09/20/23 Mckayla Blas NP [address] [place] [address] PCP - [facility] 09/07/23 01/11/25 Mckayla Blas NP [address] [place] [address] Nurse Practitioner Family Medicine 09/20/23 documented as of this encounter
--- OUTSIDE RECORDS SUMMARY | 2025-01-29 12:05 | XMS_ITS | Encounter Summary ---
Author Organization [facility] Address [address] [place] [address] Care Team Providers Care Insurance Processing Clerk Name Role Phone Ty Amin MD Primary Care Provider [phone] Mckayla Blas NP Unavailable [phone] Encounter Details Date Type Department Care [...] How often do you attend chur or caodaism services? More than 4 times per year [...] Recorded Patient Health Questionnaire-2 Score 1 01/17/2024 [facility] [...] any time in the past 12 m [facility], were you homeless or living [...] 04/29/2025 6:00 PM EDT Office Visit [facility] [address] [place] [address] Mckayla Blas NP [address] [place] [address] 05/28/2025 10:30 AM EST Office Visit [facility] [address] [place] [phone] Rain Souza MD [address] [place] [address] 02/01/2026 6:00 PM EDT Office Visit [facility] [address] [place] [address] Mckayla Blas NP [address] [place] [address] documented as of this encounter Visit Diagnoses Not on filedocumented in this encounter Additional Health Concerns Assessment Noted Time PHQ-9 Depression Total Score: 3 01/17/20 24 10:08 AM EDT documented as of this encounter Care Teams Insurance Processing Clerk Relationship Specialty Start Date End Date Ty Amin MD [address] [place] [address] PCP - General Family Medicine 09/20/23 Mckayla Blas NP [address] [place] [address] Nurse Practitioner Family Medicine 09/20/23 documented as of this encounter
--- OUTSIDE RECORDS SUMMARY | 2025-01-29 12:05 | XMS_ITS | Encounter Summary ---
Author Organization [facility] Address [address] [place] [address] Care Team Providers Care Cooler Tender Name Role Phone Ty Amin MD Primary Care Provider [phone] Mckayla Blas NP Unavailable [phone] Mckayla Blas NP Unavailable [phone] Encounter Details Date Type Department Care [...] you attend chur ch or denominational services? 1 to 4 times per year 07/10/2023 Do you belong to any clubs o r organizations such as caodaism groups, unions, fraternal [...] Recorded Patient Health Questionnaire-2 Score 1 01/17/2024 [facility] Occupat ional Health [...] 04/29/2025 6:00 PM EDT Office Visit [facility] [address] [place] [address] Mckayla Blas NP [address] [place] [address] 05/28/2025 10:30 AM EST Office Visit [facility] [address] [place] [address] Rain Souza MD [address] [place] [address] 02/01/2026 6:00 PM EDT Office Visit [facility] [address] [place] [address] Mckayla Blas, SILVANO [address] [place] [address] documented as of this encounter Procedures Procedure Name Priority Date/Time Associated Diagnosis Comments CT ABDOMEN PELVIS W CON 05/12/2024 2:16 PM EST documented in this encounter Results * CT ABDOMEN PELVIS W CON (05/12/2024 2:16 PM EST) Anatomical Region Laterality Modality Other 05/12/2024 2:16 PM EST Narrative 05/12/2024 2:19 [place] [address] [place] Scan Report Signed Patient: SINA MACIAS MR#: [id number] : 1970 Acct:[id number] Age/Sex: 53 / F ADM Date: 05/12/24 Loc: CT Attending Dr: Gaviota MAYERS Ordering Physician: Gaviota Vega Date of Service: 05/12/24 Procedure(s): CT abdomen pelvis w con Accession Number(s): [id number] cc: Mckayla Blas NP [address] [address] Patient Name: SINA MACIAS MRN: [facility]:[id number] date: 1970 Sex: F Assigned Patient Location: CT Current Patient Location: Accession/Order Number: [id number] Exam Date: 05/12/2024 11:15 Report Date: 05/12/2024 14:16 At the request of: GAVIOTA VEGA Procedure: CT abdomen pelvis w con [...] Signed By: 05/12/24 1419 DD/ 1416 TD/TT: Side Panel Padder: Procedure Note Radiology, Radiologist, MD - 05/12/2024 [place] [address] CT Scan Report Signed Patient: SINA MACIAS LMR#: [id number] : 1970Acct:[id number] Age/Sex: 53 / FADM Date: 05/12/24 Loc: CT Attending Dr: Gaviota MAYERS Ordering Physician: Gaviota Vega Date of Service: 05/12/24 Procedure(s): CT abdomen pelvis w con Accession Number(s): [id number] cc: Mckayla Blas NP The [place] [id number] Patient Name: SINA MACIAS MRN: [facility]:[id number] date: 1970 Sex: F Assigned Patient Location: CT Current Patient Location: Accession/Order Number: [id number] Exam Date: 05/12/2024 11:15 Report Date: 05/12/2024 14:16 At the request of: GAVIOTA VEGA Procedure: CT abdomen pelvis w con [...] M.D. Signed By:05/12/24 1419 DD/ 1416 TD/TT: Side Panel Padder: us Generic External Data Provider [facility] Final Result documented in this encounter Visit Diagnoses Not on filedocumented in this encounter Additional Health Concerns Assessment Noted Time PHQ-9 Depression Total Score: 3 01/17/20 24 10:08 AM EDT documented as of this encounter Care Teams Cooler Tender Relationship Specialty Start Date End Date Ty Amin MD [address] [place] [address] PCP - General Family Medicine 09/20/23 Mckayla Blas NP [address] [place] [address] PCP - [facility] 09/07/23 01/11/25 Mckayla Blas NP [address] [place] [address] Nurse Practitioner Family Medicine 09/20/23 documented as of this encounter
--- OUTSIDE RECORDS SUMMARY | 2025-01-29 12:05 | XMS_ITS | Encounter Summary ---
Author Organization [facility] Address [address] [place] [address] Care Team Providers Care Director Of Accreditation Name Role Phone Ty Amin MD Primary Care Provider [phone] Mckayla Blas BARK TANNER Unavailable [phone] Mckayla Blas NP Unavailable [phone] Encounter Details Date Type Department Care Team (Late st Contact Info) Description 12/17/2023 Orders Only [facility] [address] [place] [address] Mckayla Blas NP [address] [place] [address] Social History Tobacco Use Types Packs/Day Years [...] often do you attend chur ch or restoration services? 1 to 4 times per year [...] Recorded Patient Health Questionnaire-2 Score 0 11/01/2023 [facility] Occupat ional Health - Occupational [...] 04/29/2025 6:00 PM EDT [facility] [address] [place] [address] Mckayla Blas, BARK TANNER [address] [place] [address] 05/28/2025 10:30 AM EST Office Visit [facility] [address] [place] [address] Rain Souza MD [address] [place] [address] 02/01/2026 6:00 PM EDT Office Visit [facility] [address] [place] [address] Mckayla Blas NP [address] [place] [address] documented as of this encounter Procedures Procedure Name Priority Date/Time Associated Diagnosis Comments MM SCREENING MAMM WITH 3D SERENA - US AND ADDITIONAL Routine 12/14/2023 8:34 AM EDT documented in this encounter Results * MM SCREENING MAMM WITH 3D SERENA - US AND ADDITIONAL (12/14/2023 8:34 AM EDT) Anatomical Region Laterality Modality Radiographic Kalani ging us Mckayla Blas BARK TANNER IMG XR PROCEDURES Final Result documented in this encounter Visit Diagnoses Not on filedocumented in this encounter Care Teams Director Of Accreditation Relationship Specialty Start Date End Date Ty Amin MD [address] [place] [address] PCP - General Family Medicine 09/20/23 Mckayla Blas NP [address] [place] [address] PCP - [facility] 09/07/23 01/11/25 Mckayla Blas NP [address] [place] [address] Nurse Practitioner Family Medicine 09/20/23 documented as of this encounter
--- OUTSIDE RECORDS SUMMARY | 2025-01-29 12:05 | XMS_ITS | Encounter Summary ---
Author Organization [facility] Address [address] [place] [address] Care Team Providers Care Office Communication Professor Name Role Phone Ty Amin MD Primary Care Provider [phone] Mckayla Blas HORSE RACING MANAGER Unavailable [phone] Mckayla Blas HORSE RACING MANAGER Unavailable [phone] Encounter Details Date Type Department Care Team (Late st Contact Info) Description 04/14/2024 Orders Only [facility] [address] [place] [address] Mckayla Blas HORSE RACING MANAGER [address] [place] [address] Social History Tobacco Use Types Packs/Day Years [...] you attend chur ch or hindu services? 1 to 4 times per year 07/10/2023 Do you belong to any clubs o r organizations such as episcopal groups, unions, fraternal or athletic groups, or [...] 04/29/2025 6:00 PM EDT Office Visit [facility] [address] [place] [address] Mckayla Blas, HORSE RACING MANAGER [address] [place] [address] 05/28/2025 10:30 AM EST Office Visit [facility] [address] [place] [id number] Rain Souza MD [address] [place] [address] 02/01/2026 6:00 PM EDT Office Visit [facility] [address] [place] [address] Mckayla Blas NP [address] [place] [address] documented as of this encounter Procedures Procedure Name Priority Date/Time Associated Diagnosis Comments XR ANKLE 3+ VIEWS RIGHT Routine 04/14/2024 2:57 PM EDT XR ANKLE 3+ VIEWS RIGHT Routine 04/14/2024 11:20 AM EDT documented in this encounter Results * XR ankle 3+ views right (04/14/2024 2:57 PM EDT) Anatomical Region Laterality Modality Lower Extremities, Ankle Right Radiogr aphic Imaging Mckayla Blas NP IMG XR PROCEDURES Final Result * XR ankle 3+ views right (04/14/2024 11:20 AM EDT) Anatomical Region Laterality Modality Lower Extremities, Ankle Right Radiogr aphic Imaging Mckayla Blas NP IMG XR PROCEDURES Final Result documented in this encounter Visit Diagnoses Not on filedocumented in this encounter Additional Health Concerns Assessment Noted Time PHQ-9 Depression Total Score: 3 01/17/20 10:08 AM EDT documented as of this encounter Care Teams Office Communication Professor Relationship Specialty Start Date End Date Ty Amin MD [address] [place] [address] PCP - General Family Medicine 09/20/23 Mckayla Blas NP [address] [place] [address] PCP - [facility] 09/07/23 01/11/25 Mckayla Blas NP [address] [place] [address] Nurse Practitioner Family Medicine 09/20/23 documented as of this encounter
--- OUTSIDE RECORDS SUMMARY | 2025-01-29 12:05 | XMS_ITS | Encounter Summary ---
Author Organization [facility] Address [address] [facility] [place] [address] Care Team Providers Care Sound Printer Name Role Phone Ty Amin MD Primary Care Provider [phone] Mckayla Blas NP Unavailable [phone] Reason for Visit * Reason Onset Date Comments Med Refill 01/16/2025 Encounter Details Date Type Department Care Team (Late st Contact Info) Description 01/16/2025 Refill [facility] [address] [place] [address] Amber Pinzon LPN Vitamin D deficiency, unspecified [...] How often do you attend chur or jain services? More than 4 times per year [...] 1 01/17/2024 [facility]at ionct Health - Occupational Stress Questionnaire Answer Date [...] place to sleep or slept in a care home (including now)? No 07/10/2023 Housing Stability Vital Sign Answer Wilmer e Recorded In the last 12 months, was t here a time when you were not able to pay the mortgage or rent on time? No 08/26/2024 Number of Times Moved in the Last Year Not on fi le 08/26/2024 At any time in the past 12 m [facility], were you homeless or living in a care home (including now)? No 08/26/2024 Comments Unknown Sex [...] Office Visit [facility] [address] [place] [address] Mckayla Blas NP [address] [place] [address] 05/28/2025 10:30 AM EST Office Visit [facility] [address] [place] [address] Rain Souza MD [address] [place] [address] 02/01/2026 6:00 PM EDT Office Visit [facility] [address] [place] [address] Mckayla Blas, SILVANO [address] [place] [address] documented as of this encounter Visit Diagnoses Diagnosis Vitamin D deficiency, unspecified documented in this encounter Additional Health Concerns Assessment Noted Time PHQ-9 Depression Total Score: 3 01/17/20 10:08 AM EDT documented as of this encounter Care Teams Sound Printer Relationship Specialty Start Date End Date Ty Amin MD [address] [place] [address] PCP - General Family Medicine 09/20/23 Mckayla Blas NP [address] [place] [address] Nurse Practitioner Family Medicine 09/20/23 documented as of this encounter
--- OUTSIDE RECORDS SUMMARY | 2025-01-29 12:05 | XMS_ITS | Encounter Summary ---
Author Organization [facility] Address [address] [place] [address] Care Team Providers Care Restaurant General Manager Name Role Phone Ty Amin MD Primary Care Provider [phone] Mckayla Blas NP Unavailable [phone] Mckayla Blas NP Unavailable [phone] Encounter Details Date Type Department Care [...] you attend chur ch or worship services? 1 to 4 times per year 07/10/2023 Do you belong to any clubs o r organizations such as protestant groups, unions, fraternal or athletic groups, or [...] Recorded Patient Health Questionnaire-2 Score 1 01/17/2024 [facility] of Occupat ional Health - [...] 04/29/2025 6:00 PM EDT [facility] [address] [place] [address] Mckayla Blas NP [address] [place] [address] 05/28/2025 10:30 AM EST Office Visit [facility] [address] [place] [address] Rain Souza MD [address] [place] [address] 02/01/2026 6:00 PM EDT Office Visit [facility] [address] [place] [address] Mckayla Blas NP [address] [place] [address] documented as of this encounter Procedures Procedure Name Priority Date/Time Associated Diagnosis Comments SEGMENTAL BLOOD PRESSURE 04/24/2024 11:20 AM EDT documented in this encounter Results * SEGMENTAL BLOOD PRESSURE (04/24/2024 11:20 AM EDT) Anatomical Region Laterality Modality Radiographic Kalani ging 04/24/2024 11:2 0 AM EDT Narrative 04/24/2024 11:23 [place] [address] Vein Report Signed Patient: SINA MACIAS MR#: [id number] : 1970 Acct:[id number] Age/Sex: 53 / F ADM Date: 04/24/24 Loc: VC Attending Dr: Rafael Gongora Ordering Physician: Rafael Gongora Date of Service: 04/24/24 Procedure(s): VC SEGMENTAL PRESSURES Accession Number(s): [id number] cc: Mckayla Blas PRODUCTION DESIGNER; Rafael Gongora [place] [id number] Patient Name: SINA MACIAS MRN: [id number] date: 1970 Sex: F Assigned Patient Location: Current Patient Location: Accession/Order Number: [id number] Exam Date: 04/24/2024 10:25 Report Date: 04/24/2024 11:20 At the request of: RAFAEL GONGORA Procedure: VC SEGMENTAL PRESSURES EXAM: VC SEGMENTAL PRESSURES HISTORY: R09.89 COMPARISON: None. FINDINGS: Segmental pressures presented as follows (right, left) in mmHg. Brachial: 169, 166 Upper thigh: Not obtained Lower thigh: 129, 119 Calf: 124, 106 DPA: 108, 105 IV THERAPY NURSE: 100, 91 1st Toe: 124, 142 ISABELLE: [...] Signed By: 04/24/24 1123 DD/ 1120 TD/TT: Division Plant Engineer: Procedure Note Radiology, Radiologist, MD - 04/24/2024 [place] [address] Vein Report Signed Patient: SINA MACIAS LMR#: [id number] : 1970Acct:[id number] Age/Sex: 53 / FADM Date: 04/24/24 Loc: VC Attending Dr: Rafael Gongora Ordering Physician: Rafael Gongora Date of Service: 04/24/24 Procedure(s): VC SEGMENTAL PRESSURES Accession Number(s): [id number] cc: Mckayla Blas NP; Rafael Gongora The [place] [address] Patient Name: SINA MACIAS MRN: [id number] date: 1970 Sex: F Assigned Patient Location: Current Patient Location: Accession/Order Number: [id number] Exam Date: 04/24/2024 10:25 Report Date: 04/24/2024 11:20 At the request of: RAFAEL GONGORA Procedure: VC SEGMENTAL PRESSURES EXAM: VC SEGMENTAL PRESSURES HISTORY: R09.89 COMPARISON: None. FINDINGS: Segmental pressures presented as follows (right, left) in mmHg. Brachial: 169, 166 Upper thigh: Not obtained Lower thigh: 129, 119 Calf: 124, 106 DPA: 108, 105 IV THERAPY NURSE: 100, 91 1st Toe: 124, 142 ISABELLE: [...] M.D. Signed By:04/24/24 1123 DD/ 1120 TD/TT: Division Plant Engineer: us Generic External Data Provider IMG XR PROCEDURES Final Result documented in this encounter Visit Diagnoses Not on filedocumented in this encounter Additional Health Concerns Assessment Noted Time PHQ-9 Depression Total Score: 3 01/17/20 24 10:08 AM EDT documented as of this encounter Care Teams Restaurant General Manager Relationship Specialty Start Date End Date Ty Amin MD [address] [place] [address] PCP - General Family Medicine 09/20/23 Mckayla Blas NP [address] [place] [address] PCP - [facility] 09/07/23 01/11/25 Mckayla Blas NP [address] [place] [address] Nurse Practitioner Family Medicine 09/20/23 documented as of this encounter
--- OUTSIDE RECORDS SUMMARY | 2025-01-29 12:05 | XMS_ITS | Encounter Summary ---
Author Organization [facility] Address [address] [place] [address] Care Team Providers Care Core Shaper Sides Name Role Phone Ty Amin MD Primary Care Provider [phone] Mckayla Blas PREP ROOM SUPERVISOR Unavailable [phone] Mckayla Blas NP Unavailable [phone] Encounter Details Date Type Department Care Team (Late st Contact Info) Description 12/14/2023 Clinisync Result Encounter [facility] External Department Unsolicited Mckayla Blas NP [address] [place] [address] Social History Tobacco Use Types Packs/Day Years [...] How often do you attend chur or sabianist services? 1 to 4 times per year [...] Recorded Patient Health Questionnaire-2 Score 0 11/01/2023 [facility] Occupat ional [facility] - Occupational Stress Questionnaire Answer Date [...] 04/29/2025 6:00 PM EDT [facility] [address] [place] [address] Mckayla Blas, SILVANO [address] [place] [address] 05/28/2025 10:30 AM EST Office Visit [facility] [address] [place] [address] Rain Souza MD [address] [place] [address] 02/01/2026 6:00 PM EDT Office Visit [facility] [address] [place] [address] Mckayla Blas NP [address] [place] [address] documented as of this encounter Procedures Procedure Name Priority Date/Time Associated Diagnosis Comments MM TOMOSYNTHESIS SCREENING BI 12/14/2023 11:21 AM EDT documented in this encounter Results * MM TOMOSYNTHESIS SCREENING BI (12/14/2023 11:21 AM EDT) Anatomical Region Laterality Modality Other 12/14/2023 11:2 1 AM EDT Narrative 12/14/2023 11:22 AM EDT The [address] [address] Mammography Report Signed Patient: MITZI MACIAS MR#: [id number] : 1970 Acct:[id number] Age/Sex: 53 / F ADM Date: 12/13/23 Loc: MAMMO Attending Dr: Mckayla Blas NP Ordering Physician: Mckayla Blas NP Results: Date of Service: 12/13/23 Follow Up: Procedure(s): MM tomosynthesis screening BI Accession Number(s): [id number] cc: Mckayla Blas NP Patient Name: MITZI MACIAS MR#: [id number] : 1970 Exam Date: 12/13/2023 Ordering Doctor: [...] unknown cancer at age 75. LOCATION: The [facility] BREAST COMPOSITION: The breasts are [...] Signed By: 12/14/23 1122 DD/ 1121 TD/TT: Business Objects: Procedure Note Radiology, Radiologist, MD - 12/14/2023 [place] [address] Mammography Report Signed Patient: MITZI MACIAS LMR#: [id number] : 1970Acct:[id number] Age/Sex: 53 / FADM Date: 12/13/23 Loc: MAMMO Attending Dr: Mckayla Blas NP Ordering Physician: Mckayla Blas NPResults: Date of Service: 12/13/23Follow Up: Procedure(s): MM tomosynthesis screening BI Accession Number(s): [id number] cc: Mckayla Blas NP Patient Name: MITZI MACIAS MR#: [id number] : 1970 Exam Date: 12/13/2023 Ordering Doctor: SAYDA Blas MAT CLEANING MACHINE OPERATOR RADIOLOGY REPORT PROCEDURE: MM TOMOSYNTHESIS SCREENING BI [...] unknown cancer at age 75. LOCATION: The [facility] BREAST COMPOSITION: The breasts are [...] M.D. Signed By:12/14/23 1122 DD/ 1121 TD/TT: Business Objects: Mckayla Blas NP [facility] Final Result documented in this encounter Visit Diagnoses Not on filedocumented in this encounter Care Teams Core Shaper Sides Relationship Specialty Start Date End Date Ty Amin MD [address] [place] [address] PCP - General Family Medicine 09/20/23 Mckayla Blas NP [address] [place] [address] PCP - [facility] 09/07/23 01/11/25 Mckayla Blas NP [address] [place] [address] Nurse Practitioner Family Medicine 09/20/23 documented as of this encounter
--- OUTSIDE RECORDS SUMMARY | 2025-01-29 12:05 | XMS_ITS | Encounter Summary ---
Author Organization [facility] Address [address] [place] [address] Care Team Providers Care Customer Service Technician Name Role Phone Ty Amin MD Primary Care Provider [phone] Mckayla Blas DETONATOR MAKER Unavailable [phone] Mckayla Blas DETONATOR MAKER Unavailable [phone] Encounter Details Date Type Department Care Team (Late st Contact Info) Description 01/07/2025 Abstract [facility] [address] [place] [address] Mckayla Blas NP [address] [place] [address] Social History Tobacco Use Types [...] often do you attend chur ch or rastafarian services? More than 4 times per year 08/26/2024 Do you belong to any clubs o r organizations such as taoism groups, unions, fraternal or athletic groups, or [...] Questionnaire-2 Score 1 01/17/2024 [facility] of Occupat ional Health - Occupational [...] a group home (including now)? No 07/10/2023 Housing Stability Vital Sign Answer Wilmer e Recorded In the last 12 months, was t here a time when you were not able to pay the mortgage or rent on time? No 08/26/2024 Number of Times Moved in the Last Year Not on fi le 08/26/2024 At any time in the past 12 m [facility], were you homeless or living in a group home (including now)? No 08/26/2024 Comments Unknown [...] Visit [facility] [address] [place] [address] Mckayla Blas NP [address] [place] [address] 05/28/2025 10:30 AM EST Office Visit [facility] [address] [place] [address] Rain Souza MD [address] [place] [address] 02/01/2026 6:00 PM EDT Office Visit [facility] [address] [place] [address] Mckayla Blas, SILVANO [address] [place] [address] documented as of this encounter Visit Diagnoses Not on filedocumented in this encounter Additional Health Concerns Assessment Noted Time PHQ-9 Depression Total Score: 3 01/17/20 10:08 AM EDT documented as of this encounter Care Teams Customer Service Technician Relationship Specialty Start Date End Date Ty Amin MD [address] [place] [address] PCP - General Family Medicine 09/20/23 Mckayla Blas NP [address] [place] [address] PCP - [facility] 09/07/23 01/11/25 Mckayla Blas NP [address] [place] [address] Nurse Practitioner Family Medicine 09/20/23 documented as of this encounter
--- OUTSIDE RECORDS SUMMARY | 2025-01-29 12:05 | XMS_ITS | Encounter Summary ---
Author Organization [facility] Address [address] [place] [address] Care Team Providers Care Material Mixer Name Role Phone Ty Amin MD Primary Care Provider [phone] Mckayla Blas NP Unavailable [phone] Encounter Details Date Type Department Care Team ([facility] st Contact Info) Description 01/26/2025 Bamboo flowsheet [facility] [address] [place] [address] Mckayla Blas NP [address] [place] [address] Social History Tobacco Use Types Packs/Day Years [...] How often do you attend chur or judaism services? More than 4 times per year 08/26/2024 Do you belong to any clubs o r organizations such as anglican groups, unions, fraternal or athletic groups, or [...] any time in the past 12 m [facility], were you homeless or living in [...] 04/29/2025 6:00 PM EDT [facility] [address] [place] [address] Mckayla Blas NP [address] [place] [address] 05/28/2025 10:30 AM EST Office Visit [facility] [address] [place] [address] Rain Souza MD [address] [place] [address] 02/01/2026 6:00 PM EDT Office Visit [facility] [address] [place] [address] Mckayla Blas, SILVANO [address] [place] [address] documented as of this encounter Visit Diagnoses Not on filedocumented in this encounter Additional Health Concerns Assessment Noted Time PHQ-9 Depression Total Score: 3 01/17/20 24 10:08 AM EDT documented as of this encounter Care Teams Material Mixer Relationship Specialty Start Date End Date Ty Amin MD [address] [place] [address] PCP - General Family Medicine 09/20/23 Mckayla Blas, SILVANO [address] [place] [address] Nurse Practitioner Family Medicine 09/20/23 documented as of this encounter
--- OUTSIDE RECORDS SUMMARY | 2025-01-29 12:05 | XMS_ITS | Encounter Summary ---
Author Organization [facility] Address [address] [place] [address] Care Team Providers Care Sheep Rancher Name Role Phone Ty Amin MD Primary Care Provider [phone] Mckayla Blas NP Unavailable [phone] Mckayla Blas NP Unavailable [phone] Encounter Details Date Type Department Care [...] often do you attend chur ch or roman catholic services? 1 to 4 times per year 07/10/2023 Do you belong to any clubs o r organizations such as oriental orthodox groups, unions, fraternal or athletic groups, [...] Patient Health Questionnaire-2 Score 1 01/17/2024 [facility] - Occupational [...] 04/29/2025 6:00 PM EDT [facility] Visit [facility] [address] [place] [address] Mckayla Blas NP [address] [place] [address] 05/28/2025 10:30 AM EST Office Visit [facility] [address] [place] [address] Rain Souza MD [address] [place] [address] 02/01/2026 6:00 PM EDT Office Visit [facility] [address] [place] [address] Mckayla Blas, SILVANO [address] [place] [address] documented as of this encounter Procedures Procedure Name Priority Date/Time Associated Diagnosis Comments MR LUMBAR SPINE WO CON 05/12/2024 2:41 PM EST documented in this encounter Results * MR LUMBAR SPINE WO CON (05/12/2024 2:41 PM EST) Anatomical Region Laterality Modality Other 05/12/2024 2:41 PM EST Narrative 05/12/2024 2:43 [place] [address] Magnetic Resonance Report Signed Patient: SINA MACIAS MR#: [id number] : 1970 Acct:[id number] Age/Sex: 53 / F ADM Date: 05/12/24 Loc: MRI Attending Dr: Celestina Chin NP Ordering Physician: Celestina Chin NP Date of Service: 05/12/24 Procedure(s): MR lumbar spine wo con Accession Number(s): [id number] cc: Mckayla Blas AUTOMOBILE SEAT COVER INSTALLER; Celestina Chin NP [place] [address] Patient Name: SINA MACIAS MRN: [id number] date: 1970 Sex: F Assigned Patient Location: MRI Current Patient Location: CT Accession/Order Number: [id number] Exam Date: 05/12/2024 09:21 Report Date: 05/12/2024 14:41 At the request of: CELESTINA CHIN Procedure: MR lumbar spine wo con [...] Signed By: 05/12/24 1443 DD/ 144 TD/TT: Gas Leak Inspector Helper: Procedure Note Radiology, Radiologist, MD - 05/12/2024 [place] [address] Magnetic Resonance Report Signed Patient: SINA MACIAS R#: [id number] : 1970Acct:[id number] Age/Sex: 53 / FADM Date: 05/12/24 Loc: MRI Attending Dr: Celestina Chin NP Ordering Physician: Celestina Chin NP Date of Service: 05/12/24 Procedure(s): MR lumbar spine wo con Accession Number(s): [id number] cc: Mckayla Blas NP; Celestina Chin NP The [address] [address] Patient Name: SINA MACIAS MRN: [facility]:[id number] date: 1970 Sex: F Assigned Patient Location: MRI Current Patient Location: CT Accession/Order Number: [id number] Exam Date: 05/12/2024 09:21 Report Date: 05/12/2024 14:41 At the request of: CELESTINA CHIN Procedure: MR lumbar spine wo con [...] M.D. Signed By:05/12/24 1443 DD/ 1441 TD/TT: Gas Leak Inspector Helper: us Generic External Data Provider [facility] Final Result documented in this encounter Visit Diagnoses Not on filedocumented in this encounter Additional Health Concerns Assessment Noted Time PHQ-9 Depression Total Score: 3 01/17/20 24 10:08 AM EDT documented as of this encounter Care Teams Sheep Rancher Relationship Specialty Start Date End Date Ty Amin MD [address] [place] [address] PCP - General Family Medicine 09/20/23 Mckayla Blas NP [address] [place] [address] PCP - [facility] 09/07/23 01/11/25 Mckayla Blas NP [address] [place] [address] Nurse Practitioner Family Medicine 09/20/23 documented as of this encounter
--- OUTSIDE RECORDS SUMMARY | 2025-01-29 12:05 | XMS_ITS | Encounter Summary ---
Author Organization [facility] Address [address] [place] [address] Care Team Providers Care Cloth Mercerizing Supervisor Name Role Phone Ty Amin MD Primary Care Provider [phone] Mckayla Blas NP Unavailable [phone] Encounter Details Date Type Department Care Team (Late st Contact Info) Description 01/29/2025 Bamboo flowsheet [facility] [address] [place] [address] Rain Souza MD [address] [place] [address] Social History Tobacco Use Types Packs/Day Years [...] week 08/26/2024 How often do you attend [facility] or mandaen services? More than 4 times per year [...] Recorded Patient Health Questionnaire-2 Score 0 01/26/2025 [facility] - [...] in a penitentiary (including now)? No 07/10/2023 Housing Stability Vital [...] were you homeless or living in a penitentiary (including now)? No 08/26/2024 Comments Unknown Sex [...] Visit [facility] [address] [place] [address] Mckayla Blas NP [address] [place] [address] 05/28/2025 10:30 AM EST Office Visit [facility] [address] [place] [address] Rain Souza MD [address] [place] [address] 02/01/2026 6:00 PM EDT Office Visit [facility] [address] [place] [address] Mckayla Blas NP [address] [place] [address] documented as of this encounter Visit Diagnoses Not on filedocumented in this encounter Additional Health Concerns Assessment Noted Time PHQ-9 Depression Total Score: 3 01/17/20 24 10:08 AM EDT documented as of this encounter Care Teams Cloth Mercerizing Supervisor Relationship Specialty Start Date End Date Ty Amin MD [address] [place] [address] PCP - General Family Medicine 09/20/23 Mckayla Blas NP [address] [place] [address] Nurse Practitioner Family Medicine 09/20/23 documented as of this encounter
--- OUTSIDE RECORDS SUMMARY | 2025-01-29 12:05 | XMS_ITS | Clinical Summary ---
Author Organization [facility] Address [address] [place] [address] Care Team Providers Care Hebrew Teacher Name Role Phone Mckayla Blas MD Primary Care Provider [phone] Allergies No known active allergies Medications amitriptyline (Elavil) 50 mg tablet Take 1 tablet by mouth at bedtime. Active baclofen (Lioresal) 10 mg tablet Take 1 tablet by mouth at bedtime. Active Breztri Aerosphere 160-9-4.8 mcg/actuation HFA aerosol inhaler INHALE 2 PUFFS BY MOUTH IN THE MORNING AND BEFORE BEDTIME *RINSE MOUTH AFTER USE* 11/02/19 24 Active cetirizine (ZyrTEC) 10 mg tablet Take 10 mg by mouth if needed. 11/01/19 24 Active Farxiga 10 mg 10 mg in the morning. 08/31/19 24 Active diclofenac (Voltaren) 75 mg EC tablet Take 75 mg by mouth twice a day. 02/07/20 22 Active Mounjaro 10 mg/0.5 mL pen injector INJECT 10MG SUBCUTANEOUSLY ONCE A WEEK 10/22/19 24 Active insulin aspart (NovoLOG) 100 unit/mL (3 mL) injection pen Novolog Flexpen U-100 Insulin aspart 100 unit/mL (3 mL) subcutaneous Active insulin glargine (Lantus Solostar U-100 Insulin) 100 unit/mL (3 mL) injection pen INJECT 48 UNITS SUBCUTANEOUSLY TWICE DAILY 02/07/20 22 Active HYDROcodone-ac etaminophen (Barnsdall) 5-325 mg tablet TAKE 1 TABLET BY MOUTH THREE TIMES A DAY NEEDED FOR PAIN MUST LAST 30 DAYS 11/09/19 24 Active DULoxetine (Cymbalta) [address] capsule Take 1 tablet by mouth in the morning. Active ergocalciferol (Vitamin D-2) 1.25 MG (49255 Units) capsule Take 1.25 mg by mouth. Active furosemide (Lasix) 40 mg tablet Take 1 tablet by mouth in the morning. Active furosemide (Lasix) 20 mg tablet if needed. 09/12/19 24 Active hydrALAZINE (Apresoline) 25 mg tablet Take 25 mg by mouth in the morning and at bedtime. 09/27/19 24 Active lisinopril 20 mg tablet Take 1 tablet by mouth in the morning. Active omeprazole (PriLOSEC) [address] capsule Take by mouth in the morning. 09/21/19 24 Active potassium chloride ER (Micro-K) 10 mEq ER capsule Take 1 tablet by mouth in the morning. Active pregabalin (Lyrica) 300 mg capsule Take 1 capsule by mouth in the morning and at bedtime. Active simvastatin (Zocor) 10 mg tablet Take 1 tablet by mouth in the morning. Active roflumilast (Daliresp) 250 mcg tablet TAKE 1 TABLET BY MOUTH DAILY FOR 28 DAYS 11/02/19 24 Active varenicline tartrate (Chantix) 1 mg tablet Take 1 mg by mouth two times daily. 08/27/19 25 Active aspirin 81 mg chewable tablet Chew 81 mg in the morning. 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 Wound Care Vaginal yeast infection 08/17/2023 [...] going to have her see [facility] Cardiology as well Encounters Date Type Department Care Team Description 01/06/2025 11:20 AM EDT Office Visit [facility] at [address] [address] Karma Chatterjee CNP Chronic diastolic heart failure (CMS/HCC) (Primary Dx); Bilateral lower extremity edema; Primary hypertension; Mixed hyperlipidemia; Venous insufficiency; Class 3 severe obesity due to excess calories with serious comorbidity and body mass index (BMI) of 50.0 to 59.9 in adult; Type 2 diabetes mellitus with complication, with long-term current use of insulin (CMS/HCC); Obstructive sleep apnea; LVH (left ventricular hypertrophy) from Last 3 Months Family History Medical [...] drink = 0.6 oz pur e alcohol) [place] Safety & Environment Answer Date Rec orded [...] 07/19/2021, 10/28/2020, 10/08/2020 Influenza Vaccine (#1) 2025 3, 04/16/2017, 05/10/2016, Additional history exists HIB Vaccines [...] topic Insurance [employer] MEDICARE Care Teams Hebrew Teacher Relationship Specialty Start Date End Date Mckayla Blas MD [facility] [place] [address] PCP - General Nurse Practitioner 11/13/23
--- OUTSIDE RECORDS SUMMARY | 2025-01-29 12:05 | XMS_ITS | Patient Health Record ---
Author Organization [facility] Address [address] [place] [address] Care Team Providers Care Supervisor Toy Assembly Name Role Phone Mckayla Blas CNP Primary Care Provider Unavail able Armando Yañez Unavailable [phone] Allergies No Known Allergies Results Component Value Reference Range Notes PROF CHEM 8 (BAS METB) (Not yet reviewed by provider) Interpretation: Performing Lab: Notes/Report: [facility] , Sodium 142 136-145 mmol/L Potassium 4.2 [...] Performing Lab: see note ML - [facility] LB CBC AUTO DIFF (Not yet revie wed by provider) Interpretation: Performing Lab: Notes/Report: [facility] , White Blood Count 12.8 [...] Performing Lab: see note ML - [facility] LB VC SEGMENTAL PRESSURES (Not yet reviewed by provider) Interpretation: Performing Lab: Notes/Report: Source Facility: [place] [address] [place] [address] Vein Report Signed Patient: MITZI MACIAS MR#: [id number] : 1970 Acct:[id number] Age/Sex: 53 / F ADM Date: 04/24/24 Loc: VC Attending Dr: Rafael Gongora Ordering Physician: Rafael Gongora Date of Service: 04/24/24 Procedure(s): VC SEGMENTAL PRESSURES Accession Number(s): [id number] cc: Mckayla Blas NP; Rafael Gongora [place] [address] Patient Name: MITZI MACIAS MRN: [facility]:[id number] date: 1970 Sex: F Assigned Patient Location: VC Current Patient Location: VC Accession/Order Number: [id number] Exam Date: 04/24/2024 10:25 Report Date: 04/24/2024 11:20 At the request of: RAFAEL GONGORA Procedure: VC SEGMENTAL PRESSURES EXAM: VC SEGMENTAL PRESSURES HISTORY: R09.89 COMPARISON: None. FINDINGS: Segmental pressures presented as follows (right, left) in mmHg. Brachial: 169, 166 Upper thigh: Not obtained Lower thigh: 129, 119 Calf: 124, 106 DPA: 108, 105 PUNCHBOARD STUFFER: 100, 91 1st Toe: 124, 142 ISABELLE: [...] Signed By: 04/24/24 1123 DD/ 1120 TD/TT: Veneer Jointer Offbearer: [place] [address] Vein Report Signed Patient: JASON MACIAS MR#: [id number] : 1970 Acct:[id number] Age/Sex: 53 / F ADM Date: 04/24/24 Loc: VC Attending Dr: Nanci Gongora Ordering Physician: Rafael Gongora Date of Service: 04/24/24 Procedure(s): VC SEGMENTAL PRESSURES Accession Number(s): [id number] cc: Mckayla Blas NP ; Rafael Gongora [place] [address] Patient Name: MITZI MACIAS MRN: [id number] date: 1970 Sex: F Assigned Patient Location: VC Current Patient Location: VC Accession/Order Numb er: [id number] Exam Date: 10:25 Report Date: 04/24/2024 11:20 At the request of: RAFAEL GONGORA Procedure: VC SEGMEN KARY PRESSURES EXAM: VC SEGMENTAL PRESSURES HISTORY: R09.89 COMPARISON: None. FINDINGS: Segmental pressures presented as follows (right, left) in mmHg. Brachial: 169, 166 Upper thigh: Not obtained Lower thigh: 129, 119 Calf: 124, 106 DPA: 108, 105 PUNCHBOARD STUFFER: 100, 91 1st Toe: 124, 142 ISABELLE: [...] Signed By: 04/24/24 1123 DD/ 1120 TD/TT: Veneer Jointer Offbearer: Reason For Referral No Information Medications Medication [...] Days Active Vitamin D (Ergocalciferol) 1.25 MG (14825 UT) Oral for 90 Days Activ e Breztri Aerosphere 160-9-4.8 MCG/ACT Inhalation for 30 Days Active Simvastatin 10 MG Oral for 90 Days Active Roflumilast 250 MCG Oral for 28 Days Active Immunizations Vaccine Route Administration Date Status Comme nts Flu, Fluzone (08267) 6-35mo, multi-dose vial (1779-3206) Unknown 05/18/2023 Administered Pneumococcal (Pneumovax 23) Unknown [...] ulcer due to type 2 diabetes mellitus (6096155060395) Type 2 diabetes mellitus with foot ulcer (E11.621) Active confirmed Problem 580154014 Morbid (severe) obesity due to excess calories (E66.01) Active confirmed Problem Venous ulcer of lower extremity due to chronic peripheral venous hypertension (361588845088821) Chronic venous hypertension (idiopathic) with ulcer of left lower extremity (I87.312) Active confirmed Problem Chronic non-pressure ulcer of calf extending to fat level (1076461174139500 1) Non-pressure chronic ulcer of other part of right lower leg with fat layer exposed (L97.812) Active confirmed Problem Chronic ulcer of skin of lower leg (disorder) (7587529189789338 4) Non-pressure chronic ulcer of other part of left lower leg limited to breakdown of skin (L97.821) Active confirmed Problem 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 exposed (L97.822) Active confirmed Problem Long-term current use of inhaled steroid (482976335) terminal operations supervisor (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 inhaled steroids (Z79.51) Active confirmed Problem COPD - Chronic obstructive pulmonary disease (52046547) COPD (chronic obstructive pulmonary disease) (J44.9) Active confirmed Problem Hypertension (24404716) HTN (hypertension) (I10) Active confirmed Problem Obstructive sleep apnea syndrome (76677757) DANIEL (obstructive sleep apnea) (G47.33) Active confirmed Problem Lumbar radiculopathy (843922516) Lumbar radiculopathy (M54.16) Active confirmed Problem Diabetes mellitus type 2 (disorder) (60688131) DM2 (diabetes mellitus, type 2) (E11.9) Active confirmed Problem Mental disorder caused by drug (352488612) Cigarette nicotine dependence with nicotine-induced disorder (F17.219) Active confirmed Problem Leukocytosis (309071518) Leukocytosis (D72.829) Active confirmed Problem Acute exacerbation of chronic obstructive airways disease (813105124) COPD with exacerbation (J44.1) Active confirmed Problem 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 (I87.313) Active confirmed Problem Non-prs chr ulce r oth prt l low leg limited to brkdwn skin (L97.821) Active confirmed Problem Stasis dermatitis co-occurrent with venous ulcer of right lower extremity due to chronic peripheral venous hypertension (254498211979707) Idiopathic chronic venous hypertension of right lower extremity with ulcer (I87.311) Active confirmed Problem Chronic venous hypertension with ulcer and inflammation involving left side (I87.332) Active confirmed Problem Abnormal arterial blood gas (252399956) Elevated carbon dioxide level (R79.81) Active confirmed Problem Skin ulcer of right knee, limited to breakdown of skin (L97.811) Active confirmed Encounters Encounter Location Date Provider Diagnosis [facility] [address] [place] [address] 04/07/2024 Armando Yañez [facility] [address] [place] [address] 12/02/2024 Armando De Leon Plan Of Treatment Pending Test Test Name Order Date CBC AUTO DIFF 08/27/2024 PROF CHEM 8 (BAS METB) 08/27/2024 VC SEGMENTAL PRESSURES 04/24/2024 Insurance Providers Payer Name Payer Address Payer Phone Subscriber Number Group Number Insured Name Patient Relationship to Insured Coverage Start Date Coverage End Date [facility] [employer] [address] [place] [address] [phone] [id number] Mitzi Macias Self - patient is the [...] (hyperlipidemia) E78.5 Elevated carbon dioxide level R79.81 penitentiary (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 inhaled stero ids Z79.51 Anxiety and depression F41.8 GERD (gastroesophageal reflux disease) K 21.9 Surgical History Surgery Date(Month/Year) hysterectomy cholecystectomy toe surgery Hospitalization History Reason Date(Month/Year) Pneumonia -[facility] 08/31/2023 COPD Exacerbation-[facility] 09/10/2023
--- NOTE | 2025-01-29 13:00 | CA_ITS ---
Patient Name: SINA NICHOLE MR#: [id number] : 1970 Exam Date: 01/29/2025 Ordering Doctor: AMI ORO CNP ECHOCARDIOGRAM REPORT PROCEDURE: CA ECHO DOPPLER COMPLETE INDICATIONS: Chronic diastolic heart failure, diabetes, COPD COMPARISON: None. DESCRIPTION: COMPLETE ECHOCARDIOGRAM Real-time transthoracic echocardiography with 2D, M-mode, spectral and color flow Doppler performed. QUALITY: Technically difficult due to poor sound transmission. BSA 2.60 m2 LEFT VENTRICLE: Mild dilatation. Moderate concentric left ventricular hypertrophy. Systolic function appears normal. Segmental wall motion cannot be accurately assessed due to poor sound transmission. LV EF: Normal left ventricular ejection fraction, (55%). DIASTOLIC: Normal diastolic function. ATRIAL SEPTUM: LEFT ATRIUM: Normal chamber size. RIGHT ATRIUM: Mild dilatation. RIGHT VENTRICLE: Mild dilatation. Normal right ventricular systolic function. TRICUSPID VALVE: Normal mobility and thickness. No stenosis with no regurgitation. MITRAL VALVE: Normal mobility and thickness. No evidence of mitral valve stenosis. There is no mitral annular calcification. No mitral regurgitation. AORTIC VALVE: Normal trileaflet appearance. No visible sclerosis. Normal leaflet mobility. No evidence of aortic valve stenosis. No aortic regurgitation. AORTIC ROOT: Normal diameter and appearance. PULMONIC VALVE: Not well visualized. No stenosis. No regurgitation. PERICARDIUM: No evidence of pericardial effusion. IVC: IVC is normal in size, does not collapse. PLEURA: CONCLUSION: 1. Moderate concentric left ventricular hypertrophy with normal systolic function. LVEF is estimated at 55%. 2. Mildly dilated right ventricle with normal systolic function. 3. No significant valvular dysfunction. 4. Technically difficult and limited study due to poor sound transmission. Adult Echocardiography Procedure Report Left Ventricle LVEDD (3.7 - 5.6 cm): 5.67 cm LVESD (2.2 - 4.0 cm): 4.04 cm LVIVS thickness (0.6 - 1.2 cm): 1.63 cm LVPW thickness (0.5 - 1.0 cm): 1.37 cm e': 0.10 m/s E - e': 9.80 LVOT Max Gradient: 1.66 mm[Hg] LVOT Area (cm2): 0.64 m/s Peak Velocity (LVOT): 0.64 m/s LVOT Diameter 2.34 cm Left Atrium LA Volume Index (2D A2C): 34.81 ml/m2 Left Atrium Systolic Dimension: 5.60 cm Mitral Valve MV E to A Ratio: 0.90 Mitral Valve A-Wave Peak Velocity: 1.06 m/s Mitral Valve E-Wave Peak Velocity: 0.95 m/s Right Ventricle Aorta AO Root Diam: 3.36 cm Aortic Valve Tricuspid Valve Pulmonic Valve Peak Gradient: 4.18 mm[Hg], 3.41 mm[Hg] Right Atrium Right Atrium Systolic Pressure: 61.44 ml, 61.44 ml Dictated by: Hayden Herrera M.D. on 01/29/2025 at 18:37 Approved by: Hayden Herrera M.D. on 01/29/2025 at 18:40
== END 2025-01-29 12:04 | disposition home or self-care (01) ==
LOC: CARD 12:03
PROVIDERS: PCP Nurse Practitioner; Visit Provider Nurse Practitioner Family
DX: I50.32 Chronic diastolic (congestive) heart failure (principal)
CPT/HCPCS: 93306

== ENCOUNTER 2025-02-18 10:33 | Outpatient (OUT) | payer MEDICARE, SELFPAY ==
--- OUTSIDE RECORDS SUMMARY | 2024-12-02 05:30 | XMS_ITS ---
Author Organization The [facility] in [place] Address [address] [place] [address] Care Team Providers Care Electronic Data Interchange Specialist Name Role Phone Mckayla Blas CNP Primary Care Provider Armando Limon Unavailable [phone] REASON FOR VISIT 1YEAR-COPD Encounters Encounter Location Date Provider Diagnosis Pulmonary Medicine [place] [address] [place] [address] 12/02/2024 Armando Yañez Plan Of Treatment No Information Progress Notes * Mitzi MACIAS LDOB:[birth year] (54 yo F)Acc No.[id number]:12/02/2024 UNLOCKED PROGRESS NOTE Follow Up Patient: Mitzi COX Provider: Tray Yañez DO :1970 A ge:54 Y S ex:Female Date:12/02/2024 Address:[address] [place], [place] [address] Pcp:Mckayla Blas CNP Subjective: * Chief Complaints: * 1 . 1YEAR-COPD. * Medical History: Objective: * Vitals: Assessment: Plan: * Treatment: * * Electronic signature of Radha Yañez DO on 02/18/2025 at 10:37 AM EDT Sign off status: Pending Visit Status: N /S N/C (No Show/No Charge) * Provider: Tray Yañez DO Date: 0 12/02/2024 Generated for Vanessa ocampo/Luis/eTransmitting on: 0 02/18/2025 10:37 AM EDT
--- OUTSIDE RECORDS SUMMARY | 2024-12-02 05:47 | XMS_ITS ---
Author Organization The [facility] in [place] Address [address] [place] [address] Care Team Providers Care Delineator Name Role Phone Mckayla Blas CNP Primary Care Provider Armando Limon [phone] REASON FOR VISIT No Show Appointment Encounters Encounter Location Date Provider Diagnosis Pulmonary Medicine [place] [address] [place] [address] 12/02/2024 Armando Yañez Plan Of Treatment No Information Progress Notes * MACIASMitzi CARPIO LDOB:[birth year] (54 yo F)Acc No.[id number]:12/02/2024 Patient: Mitzi COX :1970 A ge:54 Y S ex:Female Address:[address] [place] [phone] * true * Date: Generated for Vanessa ocampo/Luis/eTransmitting on: 0 02/18/2025 10:36 AM EDT
--- OUTSIDE RECORDS SUMMARY | 2025-01-06 11:20 | XMS_ITS | Encounter Summary ---
Author Organization [facility] Address [address] [place] [address] Care Team Providers Care Drop Hammer Set Up Operator Name Role Phone Mckayla Blas MD Primary Care Provider [phone] Reason for Referral * Imaging (Routine) - Pending Review Specialty Diagnoses / Procedures Referred By Tarun t Referred To Contact Cardiology Diagnoses Chronic diastolic heart failure (CMS/HCC) Procedures Transthoracic echo (TTE) complete Karma Chatterjee CNP [address] [place] [address] Phone: tel: fax: Referral ID Status Reason Start Date Expiration Date Visits Requested Visits Authorized [id number] Pending Review Perform Procedure 01/06/2025 01/06/2026 1 1 Reason for Visit * Reason Comments Congestive Heart Failure Hypertension Hyperlipidemia Encounter Details Date Type Department Care Team (Late st Contact Info) Description 01/06/2025 11:20 AM EDT Office Visit [facility] Heart at [facility] [address] [place] [address] Karma Chatterjee CNP [address] [place] [address] Chronic diastolic heart failure (CMS/HCC) (Primary Dx); Bilateral lower extremity edema; Primary hypertension; Mixed hyperlipidemia; Venous insufficiency; Class 3 severe obesity due to excess calories with serious comorbidity and body mass index (BMI) of 50.0 to 59.9 in adult; Type 2 diabetes mellitus with complication, with long-term current use of insulin ([facility]); Obstructive sleep apnea; LVH (left ventricular [...] original note were not included. Cardiovascular Medicine [facility] SUBJECTIVE Chief Complaint Patient presents with Congestive Heart Failure Hypertension Hyperlipidemia Mitzi Macias is a 54 y.o. female here for follow-up. PMHx: HFpEF, HTN, HLD, DM, longstanding heavy smoker, COPD, DANIEL, morbid obesity HPI 01/06/2025 Since last seen she was admitted to [facility] for AMS on 12/05/2024. 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 She will be seeing a new asphalt machine operator and I advised she discuss [...] risk for cardiovascular complication. Karma Chatterjee APRN-[facility] Cardiovascular Medicine documented in this encounter Plan [...] complication, with long-term current use of insulin ([facility]) Obstructive sleep apnea Obstructive sleep apnea (adult) (pediatric) LVH (left ventricular hypertrophy) Cardiomegaly documented in this encounter Care Teams Drop Hammer Set Up Operator Relationship Specialty Start Date End Date Mckayla Blas MD [address] [place] [address] PCP - General Nurse Practitioner 11/13/23 documented as of this encounter
--- OUTSIDE RECORDS SUMMARY | 2025-02-18 10:36 | XMS_ITS | Encounter Summary ---
Author Organization [facility] Address [address] [place] [address] Care Team Providers Care Pressure Dispatcher Name Role Phone Ty Amin MD Primary Care Provider [phone] Mckayla Blas NP Unavailable [phone] Mckayla Blas NP Unavailable [phone] Encounter Details Date Type Department Care Team (Late st Contact Info) Description 05/12/2024 Orders Only [facility] [address] [place] [place] [address] Angela Cochran NP [address] [place] [address] Social History Tobacco Use Types [...] often do you attend chur ch or yarsani services? 1 to 4 times per year 07/10/2023 Do you belong to any clubs o r organizations such as quaker groups, unions, fraternal or athletic groups, or [...] Questionnaire-2 Score 1 01/17/2024 [facility] - Occupational Stress Questionnaire Answer Date [...] Office Visit [facility] [address] [place] [address] Mckayla Blas NP [address] [place] [address] 05/28/2025 10:30 AM EST Office Visit [facility] [place] [facility] [address] [place] [address] Rain Souza MD [address] [place] [address] 02/01/2026 6:00 PM EDT Office Visit [facility] [address] [place] [address] Mckayla Blas NP [address] [place] [address] documented as of this encounter Procedures Procedure [...] documented as of this encounter Care Teams Pressure Dispatcher Relationship Specialty Start Date End Date Ty Amin MD [address] [place] [address] PCP - General Family Medicine 09/20/23 Mckayla Blas NP [address] [place] [address] PCP - [facility] 09/07/23 01/11/25 Mckayla Blas NP [address] [place] [address] Nurse Practitioner Family Medicine 09/20/23 documented as of this encounter
--- OUTSIDE RECORDS SUMMARY | 2025-02-18 10:36 | XMS_ITS | Encounter Summary ---
[id number] [address] [place] [address] Care Team Providers Care Vocational Instructor Name Role Phone JuanjoseMckayla carcamo Krystal RECEIVING ROOM CLERK-ASSET PROTECTION LEAD Primary Care Provider Encounter Details Date Type Department Care Team (Late st Contact Info) Description 06/11/2020 Orders Only [facility] [address] [place] [address] External, Scanning Provider Social History Tobacco Use [...] on filedocumented in this encounter Care Teams Vocational Instructor Relationship Specialty Start Date End Date Mckayla Blas, RECEIVING ROOM CLERK-ASSET PROTECTION LEAD [address] [place] [address] PCP - General Nurse Practitioner 09/25/18 documented as of this encounter
--- OUTSIDE RECORDS SUMMARY | 2025-02-18 10:36 | XMS_ITS | Encounter Summary ---
Author Organization [employer] [facility] tem Address [id number] [address] [place] [address] Care Team Providers Care Upper Doubler Name Role Phone JuanjoseMckayla carcamo Krystal PEREZN-ANALYTICAL RESEARCH CHEMIST Primary Care Provider Encounter Details Date Type Department Care Team (Late st Contact Info) Description 05/31/2020 Orders Only [facility] [address] [place] [address] External, Scanning Provider Social History Tobacco Use [...] on filedocumented in this encounter Care Teams Upper Doubler Relationship Specialty Start Date End Date Mckayla Blas, CHAIRMAN AND CEO-ANALYTICAL RESEARCH CHEMIST [address] [place] [address] PCP - General Nurse Practitioner 09/25/18 documented as of this encounter
--- OUTSIDE RECORDS SUMMARY | 2025-02-18 10:36 | XMS_ITS | Encounter Summary ---
Author Organization [facility] Address [address] [place] [address] Care Team Providers Care Nurse General Duty Name Role Phone Ty Amin MD Primary Care Provider [phone] Ty Amin MD Primary Care Provider [phone] Mckayla Blas FUEL RETROFITTING TECHNICIAN Unavailable [phone] Mckayla Blas FUEL RETROFITTING TECHNICIAN Unavailable [phone] Encounter Details Date Type Department Care Team (Late st Contact Info) Description 09/12/2023 Orders Only [facility] [address] [place] [address] Social History Tobacco Use Types Packs/Day Years [...] How often do you attend chur or pentecostalism services? 1 to 4 times per year [...] [facility] of Occupat ional Health - Occupational Stress [...] EDT Office Visit [facility] [address] [place] [address] Mckayla Blas, SILVANO [address] [place] [address] 05/28/2025 10:30 AM EST Office Visit [facility] [address] [place] [address] Rain Souza MD [address] [place] [address] 02/01/2026 6:00 PM EDT Office Visit [facility] [address] [place] [address] Mckayla Blas NP [address] [place] [address] documented as of this encounter Procedures Procedure Name Priority Date/Time Associated Diagnosis Comments XR CHEST 1 VIEW Routine 09/11/2023 4:52 PM EST documented in this encounter Results * XR chest 1 view (09/11/2023 4:52 PM EST) Anatomical Region Laterality Modality Chest Radiographic Kalani ging [facility] IMG XR PROCEDURES Final Result documented in this encounter Visit Diagnoses Not on filedocumented in this encounter Care Teams Nurse General Duty Relationship Specialty Start Date End Date Ty Amin MD PCP - General Family Medicine 01/05/23 09/19/23 Ty Amin MD [address] [place] [address] PCP - General Family Medicine 09/20/23 Mckayla Blas NP [address] [place] [address] PCP - [facility] 09/07/23 01/11/25 Mckayla Blas NP [address] [place] [address] Nurse Practitioner Family Medicine 09/20/23 documented as of this encounter
--- OUTSIDE RECORDS SUMMARY | 2025-02-18 10:36 | XMS_ITS | Encounter Summary ---
Author Organization [facility] Address [id number] [address] [place] [address] Care Team Providers Care Alliance Manager Name Role Phone Mckayla Blas APRN-NETWORK CONTROL SUPERVISOR Primary Care Provider Encounter Details Date Type Department Care Team (Late st Contact Info) Description 05/03/2020 [facility]phone [facility] [address] [place] [address] Tramaine Romero DO [address] [place] [address], [address] [id number] Social History Tobacco Use Types Packs/Day Years [...] on filedocumented in this encounter Care Teams Alliance Manager Relationship Specialty Start Date End Date Mckayla Blas [place] [address] PCP - General Nurse Practitioner 09/25/18 documented as of this encounter
--- OUTSIDE RECORDS SUMMARY | 2025-02-18 10:36 | XMS_ITS | Encounter Summary ---
Author Organization [facility] Address [address] [place] [address] Care Team Providers Care Hot Press Operator Name Role Phone Ty Amin MD Primary Care Provider [phone] Mckayla Blas GUEST RELATIONS ASSOCIATE Unavailable [phone] Mckayla Blas GUEST RELATIONS ASSOCIATE Unavailable [phone] Encounter Details Date Type Department Care Team (Late st Contact Info) Description 07/14/2024 Orders Only [facility] [address] [place] [address] Mckayla Blsa GUEST RELATIONS ASSOCIATE [address] [place] [address] Social History Tobacco Use Types Packs/Day Years [...] often do you attend chur ch or episcopal services? 1 to 4 times per year 07/10/2023 Do you belong to any clubs o r organizations such as adventism groups, unions, fraternal or athletic groups, or [...] Recorded Patient Health Questionnaire-2 Score 1 01/17/2024 [facility] of Occupat ional [...] Office Visit [facility] [address] [place] [address] Mckayla Blas, GUEST RELATIONS ASSOCIATE [address] [place] [address] 05/28/2025 10:30 AM EST Office Visit [facility] [address] [place] [id number] Rain Souza MD [address] [place] [address] 02/01/2026 6:00 PM EDT Office Visit [facility] [address] [place] [address] Mckayla Blas NP [address] [place] [address] documented as of this encounter Procedures Procedure [...] documented as of this encounter Care Teams Hot Press Operator Relationship Specialty Start Date End Date Ty Amin MD [address] [place] [address] PCP - General Family Medicine 09/20/23 Mckayla Blas NP [address] [place] [address] PCP - [facility] 09/07/23 01/11/25 Mckayla Blas NP [address] [place] [address] Nurse Practitioner Family Medicine 09/20/23 documented as of this encounter
--- OUTSIDE RECORDS SUMMARY | 2025-02-18 10:36 | XMS_ITS | Encounter Summary ---
Author Organization [employer] Address [id number] [address] [place] [address] Care Team Providers Care Sales Host Name Role Phone JuanjoseMckayla carcamo Krystal SUPERVISOR DAIRY SANITATION-TELETRAY OPERATOR Primary Care Provider Encounter Details Date Type Department Care Team (Late st Contact Info) Description 05/31/2020 Orders Only [facility] [address] [place] [address] External, Scanning Provider Social History Tobacco Use [...] Final Result Performing Organization Address [facility] Co de Phone Number MANUALLY TRANSCRIBED RESULTS [...] Final Result Performing Organization Address [facility] Co de Phone Number MANUALLY TRANSCRIBED RESULTS * Pulmonary function test (10/24/2018) us Scanning Provider External PFT ORDERABLES Final Result Performing Organization Address [facility] Co de Phone Number MANUALLY TRANSCRIBED RESULTS * Nuc stress Lexiscan/Exercise (12/12/2016) Anatomical Region Laterality Modality Chest N/A Nuclear Medicine us Scanning Provider External CV STRESS ORDERABLES Final Result documented in this encounter Visit Diagnoses Not on filedocumented in this encounter Care Teams Sales Host Relationship Specialty Start Date End Date Mckayla Blas, SUPERVISOR DAIRY SANITATION-TELETRAY OPERATOR [address] [place] [address] PCP - General Nurse Practitioner 09/25/18 documented as of this encounter
--- OUTSIDE RECORDS SUMMARY | 2025-02-18 10:36 | XMS_ITS | Encounter Summary ---
Author Organization [facility] Address [address] [place] [address] Care Team Providers Care Medical Center Director Name Role Phone Ty Amin MD Primary Care Provider [phone] Mckayla Blas NP Unavailable [phone] Mckayla Blas NP Unavailable [phone] Encounter Details Date Type Department Care [...] you attend chur ch or samaritan services? 1 to 4 times per year [...] EDT Office Visit [facility] [address] [place] [address] Mckayla Blas NP [address] [place] [address] 05/28/2025 10:30 AM EST Office Visit [facility] [address] [place] [address] Rain Souza MD [address] [place] [address] 02/01/2026 6:00 PM EDT Office Visit [facility] [address] [place] [address] Mckayla Blas, SILVANO [address] [place] [address] documented as of this encounter Procedures Procedure Name Priority Date/Time Associated Diagnosis Comments MR LUMBAR SPINE WO CON 05/12/2024 2:41 PM EST documented in this encounter Results * MR LUMBAR SPINE WO CON (05/12/2024 2:41 PM EST) Anatomical Region Laterality Modality Other 05/12/2024 2:41 PM EST Narrative 05/12/2024 2:43 [place] [address] Magnetic Resonance Report Signed Patient: MITZI MACIAS MR#: [id number] : 1970 Acct:[id number] Age/Sex: 53 / F ADM Date: 05/12/24 Loc: MRI Attending Dr: Celestina Chin NP Ordering Physician: Celestina Chin NP Date of Service: 05/12/24 Procedure(s): MR lumbar spine wo con Accession Number(s): [id number] cc: Mckayla Blas CUSTODY ASSISTANT; Celestina Chin NP [place] [id number] Patient Name: MITZI MACIAS MRN: [id number] date: 1970 Sex: F Assigned Patient Location: MRI Current Patient Location: CT Accession/Order Number: [id number] Exam Date: 05/12/2024 09:21 Report Date: 05/12/2024 [...] Signed By: 05/12/24 1443 DD/ 1441 TD/TT: Clinical Secretary: Procedure Note Radiology, Radiologist, MD - 05/12/2024 [place] [address] Magnetic Resonance Report Signed Patient: MITZI MACIAS R#: [id number] : 1970Acct:[id number] Age/Sex: 53 / FADM Date: 05/12/24 Loc: MRI Attending Dr: Celestina Chin NP Ordering Physician: Celestina Chin NP Date of Service: 05/12/24 Procedure(s): MR lumbar spine wo con Accession Number(s): [id number] cc: Mckayla Blas NP; Celestina Chin NP The [address] [address] Patient Name: MITZI MACIAS MRN: [facility]:[id number] date: 1970 Sex: F Assigned Patient Location: MRI Current Patient Location: CT Accession/Order Number: [id number] Exam Date: 05/12/2024 09:21 Report Date: 05/12/2024 [...] M.D. Signed By:05/12/24 1443 DD/ 1441 TD/TT: Clinical Secretary: us Generic External Data Provider [facility] Final Result documented in this encounter Visit Diagnoses Not on filedocumented in this encounter Additional Health Concerns Assessment Noted Time PHQ-9 Depression Total Score: 3 01/17/20 24 10:08 AM EDT documented as of this encounter Care Teams Medical Center Director Relationship Specialty Start Date End Date Ty Amin MD [address] [place] [address] PCP - General Family Medicine 09/20/23 Mckayla Blas NP [address] [place] [address] PCP - [facility] 09/07/23 01/11/25 Mckayla Blas NP [address] [place] [address] Nurse Practitioner Family Medicine 09/20/23 documented as of this encounter
--- OUTSIDE RECORDS SUMMARY | 2025-02-18 10:36 | XMS_ITS | Encounter Summary ---
Author Organization [facility] Address [address] [place] [address] Care Team Providers Care Compensation Director Name Role Phone Ty Amin MD Primary Care Provider [phone] Ty Amin MD Primary Care Provider [phone] Mckayla Blas MONOGRAM OPERATOR Unavailable [phone] Mckayla Blas MONOGRAM OPERATOR Unavailable [phone] Encounter Details Date Type Department Care Team (Late st Contact Info) Description 08/31/2023 Clinisync Result Encounter [facility] External Department Unsolicited Andra Alcala PA [address] [place] [address] Dr [address] [place], [place] [phone] Social History Tobacco Use Types Packs/Day Years [...] any clubs o r organizations such as muslim groups, unions, fraternal [...] Recorded Patient Health Questionnaire-2 Score 2 07/10/2023 [facility] - Occupational Stress [...] Office Visit [facility] [address] [place] [address] Mckayla Blas NP [address] [place] [address] 05/28/2025 10:30 AM EST Office Visit [facility] [address] [place] [address] Rain Souza MD [address] [place] [address] 02/01/2026 6:00 PM EDT Office Visit [facility] [address] [place] [address] Mckayla Blas NP [address] [place] [address] documented as of this encounter Procedures Procedure [...] Provider LAB BLOOD ORDERAB LES Final Result [facility] * BLOOD CULTURE 1 (09/10/2023 2:05 PM EST) BLOOD CULTURE 1 Blood Culture 1 NG5D NO GROWTH AT 5 DAYS.^NO GROWTH AT 5 DAYS. TB 09/10/2023 2:05 PM EST 09/10/2023 2:28 PM EST Narrative [facility] - 09/16/2023 1:07 PM EDT Generic External Data Provider LAB BLOOD ORDERAB LES Final [facility] * ECG 12-LEAD (08/31/2023 6:08 PM EST) Anatomical Region Laterality Modality Other 08/31/2023 6:08 PM EST Narrative 09/02/2023 7:32 AM EST [place] [id number] Electrocardiograph Report Signed Patient: MITZI MACIAS MR#: [id number] : 1970 Acct:[id number] Age/Sex: 53 / F ADM Date: 08/31/23 Loc: [place] 214-[address]: Jacqueline Becerra D.O. Ordering Physician: Andra Alcala Date of Service: 08/31/23 Procedure(s): ECG 12 lead Accession Number(s): [id number] cc: [facility] Test Date: 2023-08-31 Pat Name: MITZI MACIAS Department: Room: - Gender: Female Hand Worker: : 1970 Requested By: MCKAYLA BLAS Order Number: [id number] Reading MD: LAURI DIOR Measurements Intervals [place] Rate: 102 P: 67 RI: 144 QRS: 52 QRSD: 72 T: 49 QT: 326 QTc: 385 Interpretive Statements 1120 Sinus tachycardia 4068 Nonspecific Twave abnormality 8102 Low QRS voltage in chest leads 9140 abnormal rhythm ECG Compared to ECG 12/04/2022 21:27:48 Electronically Signed On 09-02-2023 7:31:43 EST by LAURI DIOR Dictated By: Lauri Dior D.O. Signed By: 09/02/23 0732 DD/ 1808 TD/TT: Campus Dean: Procedure Note Radiology, Radiologist, - 09/02/2023 The [place] [id number] Electrocardiograph Report Signed Patient: MITZI MACIAS R#: [id number] : 1970Acct:[id number] Age/Sex: 53 / FADM Date: 08/31/23 Loc: [place] 214-[address]: Jacqueline Becerra D.O. Ordering Physician: Andra Alcala Date of Service: 08/31/23 Procedure(s): ECG 12 lead Accession Number(s): [id number] cc: [facility] Test Date: 2023-08-31 Pat Name: MITZI MACIAS Department: Room: - Gender: Female Hand Worker: : 1970 Requested By: MCKAYLA BLAS Order Number: [id number] Reading MD: LAURI DIOR Measurements Intervals [place] Rate: 102 P: 67 RI: 144 QRS: 52 QRSD: 72 T: 49 QT: 326 QTc: 385 Interpretive Statements 1120 Sinus tachycardia 4068 Nonspecific Twave abnormality 8102 Low QRS voltage in chest leads 9140 abnormal rhythm ECG Compared to ECG 12/04/2022 21:27:48 Electronically Signed On 09-02-2023 7:31:43 EST by LAURI DIOR Dictated By: Lauri Dior D.O. Signed By:09/02/23 0732 DD/ 1808 TD/TT: Campus Dean: Andra MAYERS [facility] Final Result documented in this encounter Visit Diagnoses Not on filedocumented in this encounter Care Teams Compensation Director Relationship Specialty Start Date End Date Ty Amin MD PCP - General Family Medicine 01/05/23 09/19/23 Ty Amin MD [address] [place] [address] PCP - General Family Medicine 09/20/23 Mckayla Blas NP [address] [place] [address] PCP - [facility] 09/07/23 01/11/25 Mckayla Blas NP [address] [place] [address] Nurse Practitioner Family Medicine 09/20/23 documented as of this encounter
--- OUTSIDE RECORDS SUMMARY | 2025-02-18 10:36 | XMS_ITS | Encounter Summary ---
Author Organization [facility] Address [address] [place] [address] Care Team Providers Care Climatology Teacher Name Role Phone Ty Amin MD Primary Care Provider [phone] Mckayla Blas AIRLINE PILOT Unavailable [phone] Mckayla Blas AIRLINE PILOT Unavailable [phone] Encounter Details Date Type Department Care Team (Late st Contact Info) Description 01/07/2025 Abstract [facility] [address] [place] [address] Mckayla Blas NP [address] [place] [address] Social History Tobacco Use Types [...] often do you attend chur ch or methodist services? More than 4 times per year [...] Recorded Patient Health Questionnaire-2 Score 1 01/17/2024 [facility] of Occupat ional Health - [...] in a alf (including now)? No 07/10/2023 Housing Stability Vital Sign Answer Wilmer e Recorded In the last 12 months, was t here a time when you were not able to pay the mortgage or rent on time? No 08/26/2024 Number of Times Moved in the Last Year Not on fi le 08/26/2024 At any time in the past 12 [facility], were you homeless or living in a alf (including now)? No 08/26/2024 Comments Unknown Sex [...] Visit [facility] [address] [place] [address] Mckayla Blas NP [address] [place] [address] 05/28/2025 10:30 AM EST Office Visit [facility] [address] [place] [address] Rain Souza MD [address] [place] [address] 02/01/2026 6:00 PM EDT Office Visit [facility] [address] [place] [address] Mckayla Blas, SILVANO [address] [place] [address] documented as of this encounter Visit Diagnoses Not on filedocumented in this encounter Additional Health Concerns Assessment Noted Time PHQ-9 Depression Total Score: 3 01/17/20 10:08 AM EDT documented as of this encounter Care Teams Climatology Teacher Relationship Specialty Start Date End Date Ty Amin MD [address] [place] [address] PCP - General Family Medicine 09/20/23 Mckayla Blas NP [address] [place] [address] PCP - [facility] 09/07/23 01/11/25 Mckayla Blas NP [address] [place] [address] Nurse Practitioner Family Medicine 09/20/23 documented as of this encounter
--- OUTSIDE RECORDS SUMMARY | 2025-02-18 10:37 | XMS_ITS | Encounter Summary ---
Author Organization [facility] Address [address] [place] [address] Care Team Providers Care Assistant Mechanic Name Role Phone Mckayla Blas MD Primary Care Provider [phone] Encounter Details Date Type Department Care Team (Late st Contact Info) Description 02/04/2025 Results Follow-Up Cardiology [address] [place] [address] Karma Chatterjee CNP [address] [facility] [place] [address] Complete Echo (TTE) w/wo Imaging Agent, Strain, 3D, Bubble Study Social History Tobacco Use Types Packs/Day Years Used Date Smoking Tobacco: Every Day Cigarettes Smokeless Tobacco: Never Alcohol Use Standard Drinks/Week Comments Not Currently [...] as of this encounter Miscellaneous Notes * Result Encounter Note - Karma Chatterjee CNP - 02/04/2025 11:29 AM EDT Please let her know her ECHO showed some improvement in the left side wall thickness, it was severely enlarged, now it is moderate. Important for good BP control to continue to improve this. Everything else looks good. Follow-up as planned in 6 months. Thanks! documented in this encounter Plan of Treatment Not on file documented as of this encounter Visit Diagnoses Not on filedocumented in this encounter Care Teams Assistant Mechanic Relationship Specialty Start Date End Date Mckayla Blas MD [address] [place] [address] PCP - General Nurse Practitioner 11/13/23 documented as of this encounter
--- OUTSIDE RECORDS SUMMARY | 2025-02-18 10:37 | XMS_ITS | Encounter Summary ---
Author Organization [facility] Address [address] [place] [address] Care Team Providers Care Warhead Maintenance Specialist Name Role Phone Ty Amin MD Primary Care Provider [phone] Mckayla Blas CLOTH FEEDER Unavailable [phone] Mckayla Blas CLOTH FEEDER Unavailable [phone] Reason for Visit * Reason Comments Med Refill Encounter Details Date Type Department Care Team (Late st Contact Info) Description 11/27/2023 Refill [facility] [address] [place] [address] Mckayla Blas NP [address] [place] [address] Chronic obstructive pulmonary disease, unspecified (HCC) Social [...] How often do you attend chur or catholic services? 1 to 4 times per year 07/10/2023 Do you belong to any clubs o r organizations such as religious groups, unions, fraternal or athletic groups, or [...] Health Questionnaire-2 Score 0 11/01/2023 [facility] of Occupat ional Health [...] a care home (including now)? No 07/10/2023 Comments Unknown [...] Office Visit [facility] [address] [place] [address] Mckayla Blas NP [address] [place] [address] 05/28/2025 10:30 AM EST Office Visit [facility] [address] [place] [address] Rain Souza MD [address] [place] [address] 02/01/2026 6:00 PM EDT Office Visit [facility] [address] [place] [address] Mckayla Blas NP [address] [place] [address] documented as of this encounter Visit Diagnoses Diagnosis Chronic obstructive pulmonary disease, unspecified (HCC) documented in this encounter Care Teams Warhead Maintenance Specialist Relationship Specialty Start Date End Date Ty Amin MD [address] [place] [address] PCP - General Family Medicine 09/20/23 Mckayla Blas NP [address] [place] [address] PCP - [facility] 09/07/23 01/11/25 Mckayla Blas NP [address] [place] [address] Nurse Practitioner Family Medicine 09/20/23 documented as of this encounter
--- OUTSIDE RECORDS SUMMARY | 2025-02-18 10:37 | XMS_ITS | Encounter Summary ---
Author Organization [facility] Address [address] [place] [address] Care Team Providers Care Director Of Dietary Name Role Phone Ty Amin MD Primary Care Provider [phone] Mckayla Blas NP Unavailable [phone] Mckayla Blas NP Unavailable [phone] Encounter Details Date Type Department Care [...] you attend chur ch or islam services? 1 to 4 times per year 07/10/2023 Do you belong to any clubs o r organizations such as islam groups, unions, fraternal [...] Office Visit [facility] [address] [place] [address] Mckayla Blas NP [address] [place] [address] 05/28/2025 10:30 AM EST Office Visit [facility] [address] [place] [address] Rain Souza MD [address] [place] [address] 02/01/2026 6:00 PM EDT Office Visit [facility] [address] [place] [address] Mckayla Blas, SILVANO [address] [place] [address] documented as of this encounter Procedures Procedure Name Priority Date/Time Associated Diagnosis Comments SEGMENTAL BLOOD PRESSURE 04/24/2024 11:20 AM EDT documented in this encounter Results * SEGMENTAL BLOOD PRESSURE (04/24/2024 11:20 AM EDT) Anatomical Region Laterality Modality Radiographic Kalani ging 04/24/2024 11:2 0 AM EDT Narrative 04/24/2024 11:23 [place] [address] Vein Report Signed Patient: SINA MACIAS MR#: [id number] : 1970 Acct:[id number] Age/Sex: 53 / F ADM Date: 04/24/24 Loc: VC Attending Dr: Rafael Gongora Ordering Physician: Rafael Gongora Date of Service: 04/24/24 Procedure(s): VC SEGMENTAL PRESSURES Accession Number(s): [id number] cc: Mckayla Blas DEPARTMENT HELPER; Rafael Gongora [place] [address] Patient Name: SINA MACIAS MRN: [id number] date: 1970 Sex: F Assigned Patient Location: Current Patient Location: Accession/Order Number: [id number] Exam Date: 04/24/2024 10:25 Report Date: 04/24/2024 11:20 At the request of: RAFAEL GONGORA Procedure: VC SEGMENTAL PRESSURES EXAM: VC SEGMENTAL PRESSURES HISTORY: R09.89 COMPARISON: None. FINDINGS: Segmental pressures presented as follows (right, left) in mmHg. Brachial: 169, 166 Upper thigh: Not obtained Lower thigh: 129, 119 Calf: 124, 106 DPA: 108, 105 PLUG MACHINE OPERATOR: 100, 91 1st Toe: 124, 142 ISABELLE: [...] Signed By: 04/24/24 1123 DD/ 1120 TD/TT: Draw 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: Procedure Note Radiology, Radiologist, MD - 04/24/2024 [place] [address] Vein Report Signed Patient: SINA MACIAS LMR#: [id number] : 1970Acct:[id number] Age/Sex: 53 / FADM Date: 04/24/24 Loc: VC Attending Dr: Rafael Gongora Ordering Physician: Rafael Gongora Date of Service: 04/24/24 Procedure(s): VC SEGMENTAL PRESSURES Accession Number(s): [id number] cc: Mckayla Blas NP; Rafael Gongora [address] [place] [address] Patient Name: SINA MACIAS MRN: [id number] date: 1970 Sex: F Assigned Patient Location: Current Patient Location: VC Accession/Order Number: [id number] Exam Date: 04/24/2024 10:25 Report Date: 04/24/2024 11:20 At the request of: RAFAEL GONGORA Procedure: VC SEGMENTAL PRESSURES EXAM: VC SEGMENTAL PRESSURES HISTORY: R09.89 COMPARISON: None. FINDINGS: Segmental pressures presented as follows (right, left) in mmHg. Brachial: 169, 166 Upper thigh: Not obtained Lower thigh: 129, 119 Calf: 124, 106 DPA: 108, 105 PLUG MACHINE OPERATOR: 100, 91 1st Toe: 124, 142 ISABELLE: [...] M.D. Signed By:04/24/24 1123 DD/ 1120 TD/TT: Draw 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: us Generic External Data Provider IMG XR PROCEDURES Final Result documented in this encounter Visit Diagnoses Not on filedocumented in this encounter Additional Health Concerns Assessment Noted Time PHQ-9 Depression Total Score: 3 01/17/20 24 10:08 AM EDT documented as of this encounter Care Teams Director Of Dietary Relationship Specialty Start Date End Date Ty Amin MD [address] [place] [address] PCP - General Family Medicine 09/20/23 Mckayla Blas NP [address] [place] [address] PCP - [facility] 09/07/23 01/11/25 Mckayla Blas NP [address] [place] [address] Nurse Practitioner Family Medicine 09/20/23 documented as of this encounter
--- OUTSIDE RECORDS SUMMARY | 2025-02-18 10:37 | XMS_ITS | Encounter Summary ---
Author Organization [facility] Address [address] [place] [address] Care Team Providers Care Softball Umpire Name Role Phone Ty Amin MD Primary Care Provider [phone] Mckayla Blas IN SERVICE COORDINATOR Unavailable [phone] Mckayla Blas NP Unavailable [phone] Encounter Details Date Type Department Care Team (Late st Contact Info) Description 12/14/2023 Clinisync Result Encounter [facility] External Department Unsolicited Mckayla Blas NP [address] [place] [address] Social History Tobacco Use Types Packs/Day Years [...] How often do you attend chur or sikh services? 1 to 4 times per year [...] Recorded Patient Health Questionnaire-2 Score 0 11/01/2023 [facility] - Occupational Stress Questionnaire Answer Date [...] Office Visit [facility] [address] [place] [address] Mckayla Blas, SILVANO [address] [place] [address] 05/28/2025 10:30 AM EST Office Visit [facility] [address] [place] [address] Rain Souza MD [address] [place] [address] 02/01/2026 6:00 PM EDT Office Visit [facility] [address] [place] [address] Mckayla Blas NP [address] [place] [address] documented as of this encounter Procedures Procedure Name Priority Date/Time Associated Diagnosis Comments MM TOMOSYNTHESIS SCREENING BI 12/14/2023 11:21 AM EDT documented in this encounter Results * MM TOMOSYNTHESIS SCREENING BI (12/14/2023 11:21 AM EDT) Anatomical Region Laterality Modality Other 12/14/2023 11:2 1 AM EDT Narrative 12/14/2023 11:22 [place] [address] Mammography Report Signed Patient: SINA MACIAS MR#: [id number] : 1970 Acct:[id number] Age/Sex: 53 / F ADM Date: 12/13/23 Loc: MAMMO Attending Dr: Mckayla Blas NP Ordering Physician: Mckayla Blas NP Results: Date of Service: 12/13/23 Follow Up: Procedure(s): MM tomosynthesis screening BI Accession Number(s): [id number] cc: Mckayla Blas NP Patient Name: SINA MACIAS MR#: [id number] : 1970 Exam Date: 12/13/2023 Ordering Doctor: [...] The [facility] BREAST COMPOSITION: The breasts are almost [...] Signed By: 12/14/23 1122 DD/ 1121 TD/TT: Surveyor Geodetic: Procedure Note Radiology, Radiologist, MD - 12/14/2023 [place] [address] Mammography Report Signed Patient: SINA MACIAS LMR#: [id number] : 1970Acct:[id number] Age/Sex: 53 / FADM Date: 12/13/23 Loc: MAMMO Attending Dr: Mckayla Blas NP Ordering Physician: Mckayla Blas NPResults: Date of Service: 12/13/23Follow Up: Procedure(s): MM tomosynthesis screening BI Accession Number(s): [id number] cc: Mckayla Blas NP Patient Name: SINA MACIAS MR#: [id number] : 1970 Exam Date: 12/13/2023 Ordering Doctor: SAYDA Blas DIRECT SALES REPRESENTATIVE RADIOLOGY REPORT PROCEDURE: MM TOMOSYNTHESIS SCREENING BI [...] The [facility] BREAST COMPOSITION: The breasts are almost [...] M.D. Signed By:12/14/23 1122 DD/ 1121 TD/TT: Surveyor Geodetic: us Mckayla Blas NP [facility] Final Result documented in this encounter Visit Diagnoses Not on filedocumented in this encounter Care Teams Softball Umpire Relationship Specialty Start Date End Date Ty Amin MD [address] [place] [address] PCP - General Family Medicine 09/20/23 Mckayla Blas NP [address] [place] [address] PCP - [facility] 09/07/23 01/11/25 Mckayla Blas NP [address] [place] [address] Nurse Practitioner Family Medicine 09/20/23 documented as of this encounter
--- OUTSIDE RECORDS SUMMARY | 2025-02-18 10:37 | XMS_ITS | Encounter Summary ---
Author Organization [facility] Address [address] [place] [address] Care Team Providers Care Hospital Admissions Clerk Name Role Phone Ty Amin MD Primary Care Provider [phone] Mckayla Blas NP Unavailable [phone] Mckayla Blas NP Unavailable [phone] Encounter Details Date Type Department Care [...] Office Visit [facility] [address] [place] [address] Mckayla Blas NP [address] [place] [address] 05/28/2025 10:30 AM EST Office Visit [facility] [address] [place] [address] Rain Souza MD [address] [place] [address] 02/01/2026 6:00 PM EDT Office Visit [facility] [address] [place] [address] Mckayla Blas, SILVANO [address] [place] [address] documented as of this encounter Procedures Procedure Name Priority Date/Time Associated Diagnosis Comments CT ABDOMEN PELVIS W CON 05/12/2024 2:16 PM EST documented in this encounter Results * CT ABDOMEN PELVIS W CON (05/12/2024 2:16 PM EST) Anatomical Region Laterality Modality Other 05/12/2024 2:16 PM EST Narrative 05/12/2024 2:19 [place] [address] CT Scan Report Signed Patient: MITZI MACIAS MR#: [id number] : 1970 Acct:[id number] Age/Sex: 53 / F ADM Date: 05/12/24 Loc: CT Attending Dr: Gaivota MAYERS Ordering Physician: Gaviota Vega Date of Service: 05/12/24 Procedure(s): CT abdomen pelvis w con Accession Number(s): [id number] cc: Mckayla Blas NP [address] [address] Patient Name: MITZI MACIAS MRN: [id number] date: 1970 Sex: F Assigned Patient Location: CT Current Patient Location: Accession/Order Number: [id number] Exam Date: 05/12/2024 11:15 Report Date: 05/12/2024 [...] Signed By: 05/12/24 1419 DD/ 1416 TD/TT: Collector Of Aquarium Specimens: Procedure Note Radiology, Radiologist, MD - 05/12/2024 [place] [address] CT Scan Report Signed Patient: MITZI MACIAS LMR#: [id number] : 1970Acct:[id number] Age/Sex: 53 / FADM Date: 05/12/24 Loc: CT Attending Dr: Gaviota MAYERS Ordering Physician: Gaviota Vega Date of Service: 05/12/24 Procedure(s): CT abdomen pelvis w con Accession Number(s): [id number] cc: Mckayla Blas NP The [place] [id number] Patient Name: MITZI MACIAS MRN: [facility]:[id number] date: 1970 Sex: F Assigned Patient Location: CT Current Patient Location: Accession/Order Number: [id number] Exam Date: 05/12/2024 11:15 Report Date: 05/12/2024 [...] M.D. Signed By:05/12/24 1419 DD/ 1416 TD/TT: Collector Of Aquarium Specimens: us Generic External Data Provider [facility] Final Result documented in this encounter Visit Diagnoses Not on filedocumented in this encounter Additional Health Concerns Assessment Noted Time PHQ-9 Depression Total Score: 3 01/17/20 24 10:08 AM EDT documented as of this encounter Care Teams Hospital Admissions Clerk Relationship Specialty Start Date End Date Ty Amin MD [address] [place] [address] PCP - General Family Medicine 09/20/23 Mckayla Blas NP [address] [place] [address] PCP - [facility] 09/07/23 01/11/25 Mckayla Blas NP [address] [place] [address] Nurse Practitioner Family Medicine 09/20/23 documented as of this encounter
--- OUTSIDE RECORDS SUMMARY | 2025-02-18 10:37 | XMS_ITS | Encounter Summary ---
Author Organization [facility] Address [address] [place] [address] Care Team Providers Care Tipple Worker Name Role Phone Ty Amin MD Primary Care Provider [phone] Mckayla Blas NP Unavailable [phone] Reason for Visit * Reason Comments Med Refill Encounter Details Date Type Department Care Team (Late st Contact Info) Description 02/14/2025 [facility] [address] [place] [address] Rain Souza MD [address] [place] [address] Type 2 diabetes mellitus with hyperglycemia, with long-term current use of insulin (HCC) Social History Tobacco Use Types Packs/Day [...] How often do you attend chur or gnosticism services? More than 4 times per year 08/26/2024 Do you belong to any clubs o r organizations such as christianity groups, unions, fraOKCoin or athletic groups, or school groups? No [...] any time in the past 12 m [facility], were you homeless or living in a penitentiary (including now)? No 08/26/2024 Comments Unknown Sex and Gender Information Value Date Recorded Sex Assigned at Not on file Legal Sex Female 6:50 PM EDT Gender Identity Not on file Sexual Orientation Not on file documented as of this encounter Miscellaneous Notes * Telephone Encounter - Amber Pinzon LPN - 02/16/2025 9:20 AM EDT MEDICATION SENT TO PHARMACY. documented in this encounter Plan of Treatment Upcoming Encounters Date Type Department Care Team (Late st Contact Info) Description 04/29/2025 6:00 PM EDT Office Visit [facility] [address] [place] [address] Mckayla Blas NP [address] [place] [address] 05/28/2025 10:30 AM EST Office Visit [facility] [place] [facility] [address] [place] [address] Rain Souza MD [address] [place] [address] 02/01/2026 6:00 PM EDT [facility] [address] [place] [address] Mckayla Blas NP [address] [place] [address] documented as of this encounter Visit Diagnoses Diagnosis Type 2 diabetes mellitus with hyperglycemia, with long-term current use of insulin (HCC) documented in this encounter Additional Health Concerns Assessment Noted Time PHQ-9 Depression Total Score: 3 01/17/20 10:08 AM EDT documented as of this encounter Care Teams Tipple Worker Relationship Specialty Start Date End Date Ty Amin MD [address] [place] [address] PCP - General Family Medicine 09/20/23 Mckayla Blas NP [address] [place] [address] Nurse Practitioner Family Medicine 09/20/23 documented as of this encounter
--- OUTSIDE RECORDS SUMMARY | 2025-02-18 10:37 | XMS_ITS | Encounter Summary ---
Author Organization [facility] Address [address] [place] [address] Care Team Providers Care Piano Bench Assembler Name Role Phone Ty Amin MD Primary Care Provider [phone] Mckayla Blas SOLAR RESOURCE ASSESSOR Unavailable [phone] Mckayla Blas SOLAR RESOURCE ASSESSOR Unavailable [phone] Encounter Details Date Type Department Care Team (Late st Contact Info) Description 04/14/2024 Orders Only [facility] [address] [place] [address] Mckayla Blas SOLAR RESOURCE ASSESSOR [address] [place] [address] Social History Tobacco Use Types Packs/Day Years [...] often do you attend chur ch or sikhism services? 1 to 4 times per year 07/10/2023 Do you belong to any clubs o r organizations such as jehovah's witness groups, unions, fraternal or athletic groups, or [...] Office Visit [facility] [address] [place] [address] Mckayla Blas, SOLAR RESOURCE ASSESSOR [address] [place] [address] 05/28/2025 10:30 AM EST Office Visit [facility] [address] [place] [address] Rain Souza MD [address] [place] [address] 02/01/2026 6:00 PM EDT Office Visit [facility] [address] [place] [address] Mckayla Blas NP [address] [place] [address] documented as of this encounter Procedures Procedure [...] Ankle Right Radiogr aphic Imaging Mckayla Blas SOLAR RESOURCE ASSESSOR IMG XR PROCEDURES Final Result documented in this encounter Visit Diagnoses Not on filedocumented in this encounter Additional Health Concerns Assessment Noted Time PHQ-9 Depression Total Score: 3 01/17/20 10:08 AM EDT documented as of this encounter Care Teams Piano Bench Assembler Relationship Specialty Start Date End Date Ty Amin MD [address] [place] [address] PCP - General Family Medicine 09/20/23 Mckayla Blas NP [address] [place] [address] PCP - [facility] 09/07/23 01/11/25 Mckayla Blas NP [address] [place] [address] Nurse Practitioner Family Medicine 09/20/23 documented as of this encounter
--- OUTSIDE RECORDS SUMMARY | 2025-02-18 10:37 | XMS_ITS | Encounter Summary ---
Author Organization [facility] Address [address] [place] [address] Care Team Providers Care Backend Python Developer Name Role Phone Ty Amin MD Primary Care Provider [phone] Mckayla Bals PIT MANAGER Unavailable [phone] Mckayla Blas NP Unavailable [phone] Encounter Details Date Type Department Care Team (Late st Contact Info) Description 12/17/2023 Orders Only [facility] [address] [place] [address] Mckayla Blas NP [address] [place] [address] Social History Tobacco Use Types Packs/Day Years [...] often do you attend chur ch or mandaen services? 1 to 4 times per year [...] Recorded Patient Health Questionnaire-2 Score 0 11/01/2023 [facility] - [...] Office Visit [facility] [address] [place] [address] Mckayla Blas NP [address] [place] [address] 05/28/2025 10:30 AM EST Office Visit [facility] [address] [place] [address] Rain Souza MD [address] [place] [address] 02/01/2026 6:00 PM EDT Office Visit [facility] [address] [place] [address] Mckayla Blas NP [address] [place] [address] documented as of this encounter Procedures Procedure Name Priority Date/Time Associated Diagnosis Comments MM SCREENING MAMM WITH 3D SERENA - US AND ADDITIONAL Routine 12/14/2023 8:34 AM EDT documented in this encounter Results * MM SCREENING MAMM WITH 3D SERENA - US AND ADDITIONAL (12/14/2023 8:34 AM EDT) Anatomical Region Laterality Modality Radiographic Kalani ging us Mckayla Blas NP IMG XR PROCEDURES Final Result documented in this encounter Visit Diagnoses Not on filedocumented in this encounter Care Teams Backend Python Developer Relationship Specialty Start Date End Date Ty Amin MD [address] [place] [address] PCP - General Family Medicine 09/20/23 Mckayla Blas NP [address] [place] [address] PCP - [facility] 09/07/23 01/11/25 Mckayla Blas NP [address] [place] [address] Nurse Practitioner Family Medicine 09/20/23 documented as of this encounter
--- OUTSIDE RECORDS SUMMARY | 2025-02-18 10:37 | XMS_ITS | Encounter Summary ---
Author Organization [facility] Address [address] [place] [address] Care Team Providers Care Homemaking Rehabilitation Consultant Name Role Phone Ty Amin MD Primary Care Provider [phone] Ty Amin MD Primary Care Provider [phone] Mckayla Blas BEACH ATTENDANT Unavailable [phone] Mckayla Blas BEACH ATTENDANT Unavailable [phone] Encounter Details Date Type Department Care Team (Late st Contact Info) Description 07/08/2023 [facility] [address] [place] [address] Mckayla Blas NP [address] [place] [address] Social History Tobacco Use Types Packs/Day Years [...] often do you attend chur ch or pentecostalism services? 1 to 4 times [...] Recorded Patient Health Questionnaire-2 Score 2 07/10/2023 [facility] - [...] or hopeless Several days 07/10/2023 11:17 AM ORA KWAN INDRARULA BRAMBILA Patient Health Questionnaire-2 Score 2 07/10/2023 11:17 [...] 04/29/2025 6:00 PM EDT Office Visit [facility] [address] [place] [address] Mckayla Blas, SILVANO [address] [place] [address] 05/28/2025 10:30 AM EST Office Visit [facility] [address] [place] [address] Rain Souza MD [address] [place] [address] 02/01/2026 6:00 PM EDT Office Visit [facility] [address] [place] [address] Mckayla Blas NP [address] [place] [address] documented as of this encounter Visit Diagnoses Not on filedocumented in this encounter Care Teams Homemaking Rehabilitation Consultant Relationship Specialty Start Date End Date Ty Amin MD PCP - General Family Medicine 01/05/23 09/19/23 Ty Amin MD [address] [place] [address] PCP - General Family Medicine 09/20/23 Mckayla Blas NP [address] [place] [address] PCP - [facility] 09/07/23 01/11/25 Mckayla Blas NP [address] [place] [address] Nurse Practitioner Family Medicine 09/20/23 documented as of this encounter
--- OUTSIDE RECORDS SUMMARY | 2025-02-18 10:37 | XMS_ITS | Clinical Summary ---
Author Organization [facility] Address [id number] [address] [place] [address] Care Team Providers Care Grey Goods Tester Name Role Phone Wan Mckayla Krystal PEREZN-SHELL WORKER Primary Care Provider Allergies No known active [...] Medical Devices Not on file Insurance [place]ICA[place] [employer] MEDICARE Care Teams Grey Goods Tester Relationship Specialty Start Date End Date Mckayla Blas APRN-SHELL WORKER [address] [place] [address] PCP - General Nurse Practitioner 09/25/18
--- OUTSIDE RECORDS SUMMARY | 2025-02-18 10:37 | XMS_ITS | Patient Health Record ---
Author Organization [facility] in [place] Address [address] [place] [address] Care Team Providers Care Repairer Art Objects Name Role Phone Mckayla Blas CNP Primary Care Provider Unavail able Armando Yañez Unavailable [phone] Allergies No Known Allergies Results Component Value Reference Range Notes PROF CHEM 8 (BAS METB) (Not yet reviewed by provider) Interpretation: Performing Lab: Notes/Report: [facility] , Sodium 142 136-145 mmol/L Potassium 4.2 [...] Performing Lab: see note ML - [facility] VC SEGMENTAL PRESSURES (Not yet reviewed by provider) Interpretation: Performing Lab: Notes/Report: Source Facility: [facility] [place] [address] [place] [address] Vein Report Signed Patient: MITZI MACIAS MR#: [id number] : 1970 Acct:[id number] Age/Sex: 53 / F ADM Date: 04/24/24 Loc: VC Attending Dr: Rafael Gongora Ordering Physician: Rafael Gongora Date of Service: 04/24/24 Procedure(s): VC SEGMENTAL PRESSURES Accession Number(s): [id number] cc: Mckayla Blas NP; Rafael Gongora [facility] [place] [id number] Patient Name: MITZI MACIAS MRN: [facility]:[id number] date: 1970 Sex: F Assigned Patient Location: Current Patient Location: VC Accession/Order Number: [id number] Exam Date: 04/24/2024 10:25 Report Date: 04/24/2024 11:20 At the request of: RAFAEL GONGORA Procedure: VC SEGMENTAL PRESSURES EXAM: VC SEGMENTAL PRESSURES HISTORY: R09.89 COMPARISON: None. FINDINGS: Segmental pressures presented as follows (right, left) in mmHg. Brachial: 169, 166 Upper thigh: Not obtained Lower thigh: 129, 119 Calf: 124, 106 DPA: 108, 105 AUTO GLASS TECHNICIAN: 100, 91 1st Toe: 124, 142 ISABELLE: [...] Signed By: 04/24/24 1123 DD/ 1120 TD/TT: Perpetual Inventory Clerk: [place] [address] Vein Report Signed Patient: BARBY MACIAS MR#: [id number] : 1970 Acct:[id number] Age/Sex: 53 / F ADM Date: 04/24/24 Loc: VC Attending Dr: Nanci Gongora Ordering Physician: Rafael Gongora Date of Service: 04/24/24 Procedure(s): VC SEGMENTAL PRESSURES Accession Number(s): [id number] cc: Mckayla Blas NP ; Rafael Gongora [facility] [place] [address] Patient Name: MITZI MACIAS MRN: [id number] date: 1970 Sex: F Assigned Patient Location: VC Current Patient Location: VC Accession/Order Numb er: [id number] Exam Date: 10:25 Report Date: 04/24/2024 11:20 At the request of: RAFAEL GONGORA Procedure: VC SEGMEN KARY PRESSURES EXAM: VC SEGMENTAL PRESSURES HISTORY: R09.89 COMPARISON: None. FINDINGS: Segmental pressures presented as follows (right, left) in mmHg. Brachial: 169, 166 Upper thigh: Not obtained Lower thigh: 129, 119 Calf: 124, 106 DPA: 108, 105 AUTO GLASS TECHNICIAN: 100, 91 1st Toe: 124, 142 ISABELLE: [...] MARYANNE GARDNER Date: 04/24/2024 11:20 Dictated By: Braulio Gardner M.D. Signed By: 04/24/24 1123 DD/ 1120 TD/TT: Perpetual Inventory Clerk: CBC AUTO DIFF (Not yet revie wed by provider) Interpretation: Performing Lab: Notes/Report: [facility] , White Blood Count 12.8 4.0-11.0 10 [...] Performing Lab: see note ML - [facility] Reason For Referral No Information [...] Days Active Vitamin D (Ergocalciferol) 1.25 MG (77298 UT) Oral for 90 Days Activ e Breztri Aerosphere 160-9-4.8 MCG/ACT Inhalation for 30 Days Active Simvastatin 10 MG Oral for 90 Days Active Roflumilast 250 MCG Oral for 28 Days Active Immunizations Vaccine Route Administration Date Status Comme nts Flu, Fluzone (41954) 6-35mo, multi-dose vial (5634-9153) Unknown 05/18/2023 Administered Pneumococcal (Pneumovax 23) Unknown [...] ulcer due to type 2 diabetes mellitus (5180408195862) Type 2 diabetes mellitus with foot ulcer (E11.621) Active confirmed Problem 209993365 Morbid (severe) obesity due to excess calories (E66.01) Active confirmed Problem Venous ulcer of lower extremity due to chronic peripheral venous hypertension (360513738549491) Chronic venous hypertension (idiopathic) with ulcer of left lower extremity (I87.312) Active confirmed Problem Chronic non-pressure ulcer of calf extending to fat level (6364195504698912 1) Non-pressure chronic ulcer of other part of right lower leg with fat layer exposed (L97.812) Active confirmed Problem Chronic ulcer of skin of lower leg (disorder) (2371866704315533 4) Non-pressure chronic ulcer of other part of left lower leg limited to breakdown of skin (L97.821) Active confirmed Problem 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 exposed (L97.822) Active confirmed Problem Long-term current use of inhaled steroid (454476441) senior care (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 inhaled steroids (Z79.51) Active confirmed Problem COPD - Chronic obstructive pulmonary disease (63198689) COPD (chronic obstructive pulmonary disease) (J44.9) Active confirmed Problem Hypertension (03548079) HTN (hypertension) (I10) Active confirmed Problem Obstructive sleep apnea syndrome (46165097) DANIEL (obstructive sleep apnea) (G47.33) Active confirmed Problem Lumbar radiculopathy (335159032) Lumbar radiculopathy (M54.16) Active confirmed Problem Diabetes mellitus type 2 (disorder) (70136789) DM2 (diabetes mellitus, type 2) (E11.9) Active confirmed Problem 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) Cigarette nicotine dependence with nicotine-induced disorder (F17.219) Active confirmed Problem Leukocytosis (647662811) Leukocytosis (D72.829) Active confirmed Problem Acute exacerbation of chronic obstructive airways disease (281179876) COPD with exacerbation (J44.1) Active confirmed Problem 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 (I87.313) Active confirmed Problem Non-prs chr ulce r oth prt l low leg limited to brkdwn skin (L97.821) Active confirmed Problem Stasis dermatitis co-occurrent with venous ulcer of right lower extremity due to chronic peripheral venous hypertension (965550715242067) Idiopathic chronic venous hypertension of right lower extremity with ulcer (I87.311) Active confirmed Problem Chronic venous hypertension with ulcer and inflammation involving left side (I87.332) Active confirmed Problem Abnormal arterial blood gas (446308611) Elevated carbon dioxide level (R79.81) Active confirmed Problem Skin ulcer of right knee, limited to breakdown of skin (L97.811) Active confirmed Encounters Encounter Location Date Provider Diagnosis [facility] [address] [place] [address] 04/07/2024 Armando Yañez [facility] [address] [place] [address] 12/02/2024 Armando De Leon Plan Of Treatment Pending Test Test Name Order Date CBC AUTO DIFF 08/27/2024 PROF CHEM 8 (BAS METB) 08/27/2024 VC SEGMENTAL PRESSURES 04/24/2024 Insurance Providers Payer Name Payer Address Payer Phone Subscriber Number Group Number Insured Name Patient Relationship to Insured Coverage Start Date Coverage End Date [facility] [employer] [address] [place] [address] [id number] Mitzi Macias Self - patient is the [...] (hyperlipidemia) E78.5 Elevated carbon dioxide level R79.81 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
--- OUTSIDE RECORDS SUMMARY | 2025-02-18 10:37 | XMS_ITS | Encounter Summary ---
Author Organization [facility] Address [address] [place] [address] Care Team Providers Care Gis Specialist Name Role Phone Ty Amin MD Primary Care Provider [phone] Mckayla Blas PACKING MACHINE OPERATOR Unavailable [phone] Mckayla Blas PACKING MACHINE OPERATOR Unavailable [phone] Encounter Details Date Type Department Care Team (Late st Contact Info) Description 01/07/2025 Abstract [facility] [address] [place] [phone] Mckayla Blas NP [address] [place] [address] Social History Tobacco Use Types [...] you attend chur ch or taoism services? More than 4 times per year [...] a senior care (including now)? No 07/10/2023 Housing Stability Vital [...] you homeless or living in a senior care (including now)? No 08/26/2024 Comments Unknown Sex [...] Visit [facility] [address] [place] [address] Mckayla Blas NP [address] [place] [address] 05/28/2025 10:30 AM EST Office Visit [facility] [address] [place] [address] Rain Souza MD [address] [place] [address] 02/01/2026 6:00 PM EDT Office Visit [facility] [address] [place] [address] Mckayla Blas, SILVANO [address] [place] [address] documented as of this encounter Visit Diagnoses Not on filedocumented in this encounter Additional Health Concerns Assessment Noted Time PHQ-9 Depression Total Score: 3 01/17/20 10:08 AM EDT documented as of this encounter Care Teams Gis Specialist Relationship Specialty Start Date End Date Ty Amin MD [address] [place] [phone] PCP - General Family Medicine 09/20/23 Mckayla Blas NP [address] [place] [phone] PCP - [facility] 09/07/23 01/11/25 Mckayla Blas NP [address] [place] [address] Nurse Practitioner Family Medicine 09/20/23 documented as of this encounter
--- OUTSIDE RECORDS SUMMARY | 2025-02-18 10:37 | XMS_ITS | Clinical Summary ---
Author Organization [facility] Address [address] [place] [address] Care Team Providers Care Microwave Technician Name Role Phone Mckayla Blas MD Primary Care Provider [phone] Allergies No known active allergies Medications amitriptyline [...] TWICE DAILY 02/07/20 22 Active HYDROcodone-ac etaminophen ([place]) 5-325 mg tablet TAKE 1 TABLET BY MOUTH THREE TIMES A DAY NEEDED FOR PAIN MUST LAST 30 DAYS 11/09/19 24 Active DULoxetine (Cymbalta) [address] capsule Take 1 tablet by mouth in the morning. Active ergocalciferol (Vitamin D-2) 1.25 MG (06520 Units) capsule Take 1.25 mg by mouth. 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 senior living current use of inhaled steroid 025 Vitamin [...] Assessment & Plan: Open wounds refer to [facility] Wound Care Vaginal yeast infection 08/17/2023 11/14/19 [...] am also going to have her see [facility] Cardiology as well Encounters Date Type Department Care Team Description 02/04/2025 Results Follow-Up Cardiology [address] [place] [phone] Karma Chatterjee CNP Complete Echo (TTE) w/wo Imaging Agent, Strain, 3D, Bubble Study 01/30/2025 Orders Only [facility] [address] [place] [address] ProviderDale MD 01/06/2025 11:20 AM EDT Office Visit [facility] [address] [place] [address] Karma Chatterjee CNP Chronic diastolic heart failure [...] drink = 0.6 oz pur e alcohol) PR Safety & Environment Answer Date Rec orded [...] on patient's age to complete this topic Procedures Procedure Name Priority Date/Time Associated Diagnosis Comments COMPLETE TRANSTHORACIC ECHO (TTE) W/WO IMAGING AGENT, STRAIN, 3D, BUBBLE STUDY Routine 01/29/2025 9:21 AM EDT from Last 3 Months Results * Complete Echo (TTE) w/wo Imaging Agent, Strain, 3D, Bubble Study (01/29/2025 9:21 AM EDT) Anatomical Region Laterality Modality Ultrasound us Historical Provider MD FOSTER ECHO PROCEDURES Final Result from Last 3 Months Insurance [employer] MEDICARE Care Teams Microwave Technician Relationship Specialty Start Date End Date Mckayla Blas MD [address] [place] [address] PCP - General Nurse Practitioner 11/13/23
--- OUTSIDE RECORDS SUMMARY | 2025-02-18 10:37 | XMS_ITS | Clinical Summary ---
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 Inject before meals. 8-10-12 units before meals and sliding scale. Active pregabalin (Lyrica) 300 MG capsuleIndicatio ns:Diabetic polyneuropathy associated with type 2 diabetes mellitus (HCC) Take 1 capsule (300 mg) by mouth in the morning and 1 capsule (300 mg) before bedtime. 60 capsule 5 024 Active Tirzepatide (Mounjaro) 15 MG/0.5ML solution auto-injectorInd ications:Type 2 diabetes mellitus with other circulatory complications (HCC) INJECT 15MG SUBCUTANEOUSLY ONCE A WEEK 6 mL 1 024 Active Accu-Chek Guide Test test stripIndications :Type 2 diabetes mellitus with other circulatory complications (HCC) USE TO TEST BLOOD SUGAR 4 TIMES DAILY 400 strip 1 024 Active baclofen (Lioresal) 10 MG tablet Take 10 mg by mouth in the morning and 10 mg in the evening and 10 mg before bedtime. 024 Active naloxone (Narcan) 4 mg/0.1 mL nasal spray Administer 4 mg into affected nostril(s) if needed 024 Active nicotine (Nicoderm, Step 1) 21 MG/24HR patchIndications :Encounter for smoking cessation counseling Place 1 patch over 24 hours on the skin 1 (one) time each day at the same time May either leave patch on 24 hours, or apply in the morning and take of at bedtime, rotate sites 30 patch 1 025 Active pregabalin (Lyrica) 150 MG capsule Take 150 mg by mouth Daily 025 Active ammonium lactate (Lac-Hydrin) 12 % lotion 025 Active HySept 0.25 % external solution APPLY TO GAUZE AND PLACE ON RIGHT LOWER LEG ULCERS, CHANGE DAILY 025 Active predniSONE (Deltasone) 10 MG tablet 4 TABS X3 DAYS, 3TABS X3 DAYS, 2 TABS X3 DAYS, 1 TAB X3 DAYS, 1/2 TAB X4 DAYS 025 Active varenicline (Chantix) 1 MG tabletIndication s:Tobacco user,Encounter for smoking cessation counseling Take 1 tablet (1 mg) by mouth in the morning and 1 tablet (1 mg) before bedtime. Take with full glass of water. 60 tablet 1 025 Active ergocalciferol (Vitamin D2) 1.25 MG (84054 UT) capsuleIndicatio ns:Vitamin D deficiency, unspecified Take 1 capsule (1.25 mg) by mouth 1 (one) time per week 12 capsule 1 2024 Active sulfamethoxazole -trimethoprim (Bactrim DS) 800-160 MG per tablet TAKE 1 TABLET BY MOUTH TWICE A DAY FOR 14 DAYS Active amitriptyline (Elavil) 25 MG tabletIndication s:Insomnia Take 1 tablet (25 mg) by mouth at bedtime 90 tablet 1 2024 Active aspirin 81 MG chewable tabletIndication s:Type 2 diabetes mellitus with complication, with long-term current use of insulin (HCC) Chew 1 tablet (81 mg) Daily 90 tablet 3 2024 Active cetirizine (ZyrTEC) 10 MG tabletIndication s:Non-seasonal allergic rhinitis, unspecified trigger Take 1 tablet (10 mg) by mouth Daily 90 tablet 1 2024 Active dapagliflozin (Farxiga) 10 MGIndications:Ty pe 2 diabetes mellitus with unspecified complications (HCC) Take 1 tablet (10 mg) by mouth Daily 90 tablet 1 2024 Active DULoxetine (Cymbalta) [address] capsuleIndicatio ns:Anxiety and depression Take 1 capsule (60 mg) by mouth in the morning and 1 capsule (60 mg) before bedtime. Do not crush or chew. 180 capsule 2024 Active fluconazole (Diflucan) 150 MG tabletIndication s:Antibiotic-ind uced yeast infection One time dose, repeat in 3 days . Do not take cholesterol pill while taking this medication. Once finished then resume 2 tablet 1 Active furosemide (Lasix) 20 MG tabletIndication s:Bilateral lower extremity edema Take 1 tablet (20 mg) by mouth Daily as needed (edema) Take in the afternoon as needed 90 tablet 2024 Active furosemide (Lasix) 40 MG tabletIndication s:Bilateral lower extremity edema Take 1 tablet (40 mg) by mouth Daily 90 tablet 1 025 2024 Active hydrALAZINE (Apresoline) 25 MG tabletIndication s:Primary hypertension Take 1 tablet (25 mg) by mouth in the morning and 1 tablet (25 mg) before bedtime. 180 tablet 025 2024 Active lisinopril 20 MG tabletIndication s:Primary hypertension Take 1 tablet (20 mg) by mouth Daily 90 tablet 1 025 2024 Active omeprazole (PriLOSEC) [address] capsuleIndicatio ns:Gastro-esopha geal reflux disease without esophagitis Take 1 capsule (20 mg) by mouth in the morning. Take before meals. 90 capsule 1 025 2024 Active potassium chloride ER (Micro-K) 10 MEQ ER capsuleIndicatio ns:Bilateral lower extremity edema Take 1 capsule (10 mEq) by mouth Daily Take 1 capsule (10 mEq) by mouth in the morning. 90 capsule 1 2024 Active Roflumilast 500 MCG tabletIndication s:Chronic obstructive pulmonary disease, unspecified (HCC) Take 1 tablet by mouth Daily 90 tablet 1 025 2024 Active simvastatin (Zocor) 10 MG tabletIndication s:Hyperlipidemia , unspecified Take 1 tablet (10 mg) by mouth at bedtime 90 tablet 2024 Active insulin glargine (Lantus) 100 UNIT/ML injectionIndicat ions:Type 2 diabetes mellitus with hyperglycemia, with long-term current use of insulin (HCC) Inject 58 Units under the skin in the morning and 58 Units before bedtime. 104.4 mL 1 025 2025 Active insulin glargine (Lantus SoloStar) 100 UNIT/ML penIndications:T ype 2 diabetes mellitus with hyperglycemia, with long-term current use of insulin (HCC) INJECT 58 UNITS SUBCUTANEOUSLY TWICE A DAY 105 mL 2 Active insulin glargine (Lantus) 100 UNIT/ML injection Inject 58 Units under the skin in the morning and 58 Units before bedtime. 2024 Discontinued(R eorder) Lantus SoloStar 100 UNIT/ML pen 025 2024 Discontinued fluconazole (Diflucan) 150 MG tabletIndication s:Antibiotic-ind uced yeast infection One time dose, repeat in 3 days . Do not take cholesterol pill while taking this medication. Once finished then resume 2 tablet 1 025 2024 Discontinued(R eorder) Roflumilast 500 MCG tabletIndication s:Chronic obstructive pulmonary disease, unspecified (HCC) Take 1 tablet by mouth Daily 90 tablet 1 025 2024 Discontinued(R eorder) amitriptyline (Elavil) 25 MG tabletIndication s:Insomnia Take 1 tablet (25 mg) by mouth at bedtime 90 tablet 1 2024 Discontinued(R eorder) aspirin 81 MG chewable tabletIndication s:Type 2 diabetes mellitus with complication, with long-term current use of insulin ([facility]) Chew 1 tablet (81 mg) Daily 90 tablet 3 025 2024 Discontinued(R eorder) cetirizine (ZyrTEC) 10 MG tabletIndication s:Non-seasonal allergic rhinitis, unspecified trigger Take 1 tablet (10 mg) by mouth Daily 90 tablet 1 2024 Discontinued(R eorder) dapagliflozin (Farxiga) 10 MGIndications:Ty pe 2 diabetes mellitus with unspecified complications ([facility]) Take 1 tablet (10 mg) by mouth Daily 90 tablet 1 025 2024 Discontinued(R eorder) DULoxetine (Cymbalta) [address] capsuleIndicatio ns:Anxiety and depression Take 1 capsule (60 mg) by mouth in the morning and 1 capsule (60 mg) before bedtime. Do not crush or chew. 180 capsule 1 2024 Discontinued(R eorder) hydrALAZINE (Apresoline) 25 MG tabletIndication s:Primary hypertension Take 1 tablet (25 mg) by mouth in the morning and 1 tablet (25 mg) before bedtime. 180 tablet 1 025 2024 Discontinued(R eorder) lisinopril 20 MG tabletIndication s:Primary hypertension Take 1 tablet (20 mg) by mouth Daily 90 tablet 1 025 2024 Discontinued(R eorder) omeprazole (PriLOSEC) [address] capsuleIndicatio ns:Gastro-esopha geal reflux disease without esophagitis Take 1 capsule (20 mg) by mouth in the morning. Take before meals. 90 capsule 1 025 2024 Discontinued(R eorder) furosemide (Lasix) 20 MG tabletIndication s:Bilateral lower extremity edema Take 1 tablet (20 mg) by mouth Daily as needed (edema) Take in the afternoon as needed 90 tablet 1 025 2024 Discontinued(R eorder) potassium chloride ER (Micro-K) 10 MEQ ER capsuleIndicatio ns:Bilateral lower extremity edema Take 1 capsule (10 mEq) by mouth Daily Take 1 capsule (10 mEq) by mouth in the morning. 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 025 Non-pressure [...] see if helps Encounter for subsequent [facility] wellness visit (AWV) in Medicare patient [...] can try ubrelvy #3 samples given: Lot [id number], exp 03/2025 Mixed incontinence 11/14/2023 Arthritis 11/14/2023 [...] is necessary they take over prescribing Pancreatitis ([facility]) 09/17/2023 COPD exacerbation 09/17/2023 Assessment & [...] 11:17 AM EDT): Open wounds refer to [facility] W[facility] Care Pulmonary hypertension 09/17/2023 Assessment & Plan (01/26/2025 7:52 AM EDT): Has seen [facility] Cardiology Assessment & Plan (12/09/2024 7:23 AM EDT): Has seen [facility] Cardiology Assessment & Plan (11/15/2023 3:49 PM EDT): Saw [facility] Cardiology See notes Going to see Pulmonary Assessment & Plan (09/27/2023 1:03 PM EDT): Needs to wear her PAP I am also going to have her see [facility] Cardiology as well PAD (peripheral artery [...] Plan (04/14/2024 11:41 AM EDT): Continue with lyangelito OARRS reviewed Fu in 3 months COPD [...] spiriva Will trial breztri: #2 samples given [id number], exp 03/03, rinse mouth after use Give [...] PM EDT): Current meds: albuterol, duoneb, 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 Assessment & Plan (08/27/2024 7:30 AM EST): Current meds: albuterol, duoneb, 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 Assessment & Plan (01/17/2024 [...] lost script I did contact [facility] [place], they will get another fill on this [...] Encounters Date Type Department Care Team Description 02/14/2025 Refill [facility] [address] [place] [address] Rain Odonnell MD Type 2 diabetes mellitus with hyperglycemia, with long-term current use of insulin (HCC) 01/29/2025 9:40 AM EDT Office Visit [facility] [address] [place] [address] Rain Odonnell MD Encounter for dietary consultation (Primary Dx); Type 2 diabetes mellitus with hyperglycemia, with long-term current use of insulin ([facility]); Vitamin D deficiency; Primary hypertension ; Insulin long-term use ([facility]); Hyperlipemia, mixed ; Microalbuminuria; Class 3 severe obesity due to excess calories with serious comorbidity and body mass index (BMI) of 50.0 to 59.9 in adult ([facility]) 01/29/2025 Clinisync Result Encounter [facility] External Department Unsolicited Provider, Generic External Data 01/29/2025 Bamboo flowsheet [facility] [address] [place] [address] Rain Odonnell MD 01/26/2025 6:00 PM EDT Office Visit [facility] [address] [place] [address] Mckayla Blas NP Encounter for subsequent annual [...] Morbid (severe) obesity due to excess calories ([facility]) 01/26/2025 Bamboo flowsheet [facility] [address] [place] [address] Mckayla Blas NP 01/19/2025 Travel 01/16/2025 Refill [facility] [address] [place] [address] Amber Pinzon LPN Vitamin D deficiency, unspecified 01/07/2025 Abstract [facility] [address] [place] [address] Mckayla Blas NP 01/07/2025 Abstract [facility] [address] [place] [address] Mckayla Blas NP 12/18/2024 Refill [facility] [address] [place] [address] Mckayla Blas NP Hyperlipidemia, unspecified ; Tobacco user; Encounter for smoking cessation counseling 12/17/2024 Telephone [facility] [address] [place] [address] Mckayla Blas NP Error (VOID this visit) 12/09/2024 10:00 AM EDT Office Visit [facility] [address] [place] [address] Mckayla Blas NP Cellulitis of left lower extremity (Primary Dx); COPD exacerbation (HCC); Primary hypertension ; Pulmonary hypertension (HCC); Morbid (severe) obesity due to excess calories ([facility]); Type 2 diabetes mellitus with complication, with long-term current use of insulin (HCC); Anxiety and depression ; Fever, unspecified fever cause 12/09/2024 Bamboo flowsheet [facility] [address] [place] [address] Mckayla Blas NP 12/08/2024 Travel 12/04/2024 Clinisync Result Encounter [facility] External Department Unsolicited Provider, Generic External Data from Last 3 Months Immunizations Immunization Administration Dates Next Due Influenza Whole 05/02/2013 Influenza, [id number] 04/16/2017,05/10/2016 Influenza, Unspecified 05/18/2023,04/16/2017,08/2015 Influenza, injectable, quadrivalent [...] Recorded Patient Health Questionnaire-2 Score 0 01/26/2025 [facility] of Occupat ional Health - Occupational Stress [...] in the past 12 m [facility], were you homeless [...] 04/29/2025 6:00 PM EDT Office Visit [facility] [address] [place] [address] Mckayla Blas NP [address] [place] [address] 05/28/2025 10:30 AM EST Office Visit [facility] [address] [place] [address] Rain Odonnell MD [address] [place] [address] 02/01/2026 6:00 PM EDT Office Visit [facility] [address] [place] [address] Mckayla Blas, SILVANO [address] [place] [address] Health Maintenance Due Date Last Done Comments [...] Procedure Name Priority Date/Time Associated Diagnosis Comments CA ECHO DOPPLER COMPLETE 01/29/2025 6:40 PM EDT POCT GLUCOSE Routine 01/29/2025 9:57 AM EDT [...] Recently Relevant to Health Maintenance Results * CA ECHO DOPPLER COMPLETE (01/29/2025 6:40 PM EDT) Anatomical Region Laterality Modality Other 01/29/2025 6:40 PM EDT Narrative 01/29/2025 6:40 PM EDT The [address] [address] Cardiology Report Signed Patient: MITZI MACIAS MR#: [id number] : 1970 Acct:[id number] Age/Sex: 54 / F ADM Date: 01/29/25 Loc: CARD Attending Dr: AMI ORO APRN Ordering Physician: AMI ORO APRN Date of Service: 01/29/25 Procedure(s): CA echo doppler complete Accession Number(s): [id number] cc: Mckayla Blas BROOMCORN GRADER; AMI ORO APRN Patient Name: MITZI MACIAS MR#: [id number] : 1970 Exam Date: 01/29/2025 Ordering Doctor: AMI ORO UI SOFTWARE DEVELOPER ECHOCARDIOGRAM REPORT PROCEDURE: CA ECHO DOPPLER COMPLETE INDICATIONS: Chronic diastolic heart failure, diabetes, COPD COMPARISON: None. DESCRIPTION: COMPLETE ECHOCARDIOGRAM Real-time transthoracic echocardiography with 2D, M-mode, spectral and color flow Doppler performed. QUALITY: Technically difficult due to poor sound transmission. BSA 2.60 m2 LEFT VENTRICLE: Mild dilatation. Moderate concentric left ventricular hypertrophy. Systolic function appears normal. Segmental wall motion cannot be accurately assessed due to poor sound transmission. LV EF: Normal left ventricular ejection fraction, (55%). DIASTOLIC: Normal diastolic function. ATRIAL SEPTUM: LEFT ATRIUM: Normal chamber size. RIGHT ATRIUM: Mild dilatation. RIGHT VENTRICLE: Mild dilatation. Normal right ventricular systolic function. TRICUSPID VALVE: Normal mobility and thickness. No stenosis with no regurgitation. MITRAL VALVE: Normal mobility and thickness. No evidence of mitral valve stenosis. There is no mitral annular calcification. No mitral regurgitation. AORTIC VALVE: Normal trileaflet appearance. No visible sclerosis. Normal leaflet mobility. No evidence of aortic valve stenosis. No aortic regurgitation. AORTIC ROOT: Normal diameter and appearance. PULMONIC VALVE: Not well visualized. No stenosis. No regurgitation. PERICARDIUM: No evidence of pericardial effusion. IVC: IVC is normal in size, does not collapse. PLEURA: CONCLUSION: 1. Moderate concentric left ventricular hypertrophy with normal systolic function. LVEF is estimated at 55%. 2. Mildly dilated right ventricle with normal systolic function. 3. No significant valvular dysfunction. 4. Technically difficult and limited study due to poor sound transmission. Adult Echocardiography Procedure Report Left Ventricle LVEDD (3.7 - 5.6 cm): 5.67 cm LVESD (2.2 - 4.0 cm): 4.04 cm LVIVS thickness (0.6 - 1.2 cm): 1.63 cm LVPW thickness (0.5 - 1.0 cm): 1.37 cm e': 0.10 m/s E - e': 9.80 LVOT Max Gradient: 1.66 mm[Hg] LVOT Area (cm2): 0.64 m/s Peak Velocity (LVOT): 0.64 m/s LVOT Diameter 2.34 cm Left Atrium LA Volume Index (2D A2C): 34.81 ml/m2 Left Atrium Systolic Dimension: 5.60 cm Mitral Valve MV E to A Ratio: 0.90 Mitral Valve A-Wave Peak Velocity: 1.06 m/s Mitral Valve E-Wave Peak Velocity: 0.95 m/s Right Ventricle Aorta AO Root Diam: 3.36 cm Aortic Valve Tricuspid Valve Pulmonic Valve Peak Gradient: 4.18 mm[Hg], 3.41 mm[Hg] Right Atrium Right Atrium Systolic Pressure: 61.44 ml, 61.44 ml Dictated by: Bharat Aguilar M.D. on 01/29/2025 at 18:37 Approved by: Bharat Aguilar M.D. on 01/29/2025 at 18:40 Dictated By: BHARAT AGUILAR Signed By: 01/29/251839 DD/ 39 TD/TT: Seed Pelleter: Procedure Note Radiology, Radiologist, MD - 01/29/2025 [place] [address] Cardiology Report Signed Patient: MITZI MACIAS LMR#: [id number] : 1970Acct:[id number] Age/Sex: 54 / FADM Date: 01/29/25 Loc: CARD Attending Dr: AMI ORO APRN Ordering Physician: AMI ORO APRN Date of Service: 01/29/25 Procedure(s): CA echo doppler complete Accession Number(s): [id number] cc: Mckayla lBas NP; AMI ORO APRN Patient Name: MITZI MACIAS MR#: [id number] : 1970 Exam Date: 01/29/2025 Ordering Doctor: AMI ORO [facility] ECHOCARDIOGRAM REPORT PROCEDURE: CA ECHO DOPPLER COMPLETE INDICATIONS: Chronic diastolic heart failure, diabetes, COPD COMPARISON: None. DESCRIPTION: COMPLETE ECHOCARDIOGRAM Real-time transthoracic echocardiography with 2D, M-mode, spectral and color flow Dopplerperformed. QUALITY: Technically difficult due to poor sound transmission. BSA2.60 m2 LEFT VENTRICLE: Mild dilatation. Moderate concentric left ventricular hypertrophy. Systolic function appears normal. Segmental wall motioncannot be accurately assessed due to poor sound transmission. LV EF: Normal left ventricular ejection fraction, (55%). DIASTOLIC: Normal diastolic function. ATRIAL SEPTUM: LEFT ATRIUM: Normal chamber size. RIGHT ATRIUM: Mild dilatation. RIGHT VENTRICLE: Mild dilatation. Normal right ventricular systolic function. TRICUSPID VALVE: Normal mobility and thickness. No stenosis with no regurgitation. MITRAL VALVE: Normal mobility and thickness. No evidence of mitralvalve stenosis. There is no mitral annular calcification. No mitralregurgitation. AORTIC VALVE: Normal trileaflet appearance. No visible sclerosis.Normal leaflet mobility. No evidence of aortic valve stenosis. No aortic regurgitation. AORTIC ROOT: Normal diameter and appearance. PULMONIC VALVE: Not well visualized. No stenosis. No regurgitation. PERICARDIUM: No evidence of pericardial effusion. IVC: IVC is normal in size, does not collapse. PLEURA: CONCLUSION: 1. Moderate concentric left ventricular hypertrophy with normal systolic function. LVEF is estimated at 55%. 2. Mildly dilated right ventricle with normal systolic function. 3. No significant valvular dysfunction. 4. Technically difficult and limited study due to poor sound transmission. Adult Echocardiography Procedure Report Left Ventricle LVEDD (3.7 - 5.6 cm): 5.67 cm LVESD (2.2 - 4.0 cm): 4.04 cm LVIVS thickness (0.6 - 1.2 cm): 1.63 cm LVPW thickness (0.5 - 1.0 cm): 1.37 cm e': 0.10 m/s E - e': 9.80 LVOT Max Gradient: 1.66 mm[Hg] LVOT Area (cm2): 0.64 m/s Peak Velocity (LVOT): 0.64 m/s LVOT Diameter 2.34 cm Left Atrium LA Volume Index (2D A2C): 34.81 ml/m2 Left Atrium Systolic Dimension: 5.60 cm Mitral Valve MV E to A Ratio: 0.90 Mitral Valve A-Wave Peak Velocity: 1.06 m/s Mitral Valve E-Wave Peak Velocity: 0.95 m/s Right Ventricle Aorta AO Root Diam: 3.36 cm Aortic Valve Tricuspid Valve Pulmonic Valve Peak Gradient: 4.18 mm[Hg], 3.41 mm[Hg] Right Atrium Right Atrium Systolic Pressure: 61.44 ml, 61.44 ml Dictated by: Bharat Aguilar M.D. on 01/29/2025 at 18:37 Approved by: Bharat Aguilar M.D. on 01/29/2025 at 18:40 Dictated By: BHARAT AGUILAR Signed By:01/29/251839 DD/ 39 TD/TT: Seed Pelleter: Generic External Data Provider [facility] Final Result * (ABNORMAL) POCT glycosylated hemoglobin (Hb A1C) docked device (01/29/2025 9:57 AM EDT) Hemoglobin A1C 8.4 Blood Venous blood specimen / Unknown 01/29/2025 9:57 AM EDT Rain Odonnell MD POINT OF CARE TEST ENTER/EDIT ORDERABLES Final Result * (ABNORMAL) POCT glucose manually resulted (01/29/2025 9:57 AM EDT) Glucose Blood, POC 121 mg/dL Blood Capillary blood specimen / Unknown 01/29/2025 9:57 AM EDT Rain Odonnell MD POINT OF CARE TEST ENTER/EDIT ORDERABLES Final Result * BLOOD CULTURE 2 (12/04/2024 5:28 PM EDT) BLOOD CULTURE 2 Blood Culture 2 NG5D NO GROWTH AT 5 DAYS.^NO GROWTH AT 5 DAYS. TB 12/04/2024 5:28 PM EDT 12/04/2024 6:18 PM EDT Narrative [facility] - 12/10/2024 2:31 PM EDT LEFT AC us Generic External Data Provider LAB BLOOD ORDERAB LES Final Result * BLOOD CULTURE 1 (12/04/2024 4:44 PM EDT) BLOOD CULTURE 1 Blood Culture 1 NG5D NO GROWTH AT 5 DAYS.^NO GROWTH AT 5 DAYS. TB 12/04/2024 4:44 PM EDT 12/04/2024 5:17 PM EDT Narrative [facility] - 12/10/2024 2:32 PM EDT us Generic External Data Provider LAB BLOOD ORDERAB LES Final Result Performing Organization Address [facility] Co de Phone Number * Diabetic Retinopathy Screening - OU - Both Eyes (07/14/2024 3:09 PM EST) Anatomical Region Laterality Modality Head Other us Mckayla Blas BROOMCORN GRADER OPHTH PHOTOGRAPHY Final Result * MM TOMOSYNTHESIS SCREENING BI (12/14/2023 11:21 AM EDT) Anatomical Region Laterality Modality Other 12/14/2023 11:2 1 AM EDT Narrative 12/14/2023 11:22 [place] [address] Mammography Report Signed Patient: MITZI MACIAS MR#: [id number] : 1970 Acct:[id number] Age/Sex: 53 / F ADM Date: 12/13/23 Loc: MAMMO Attending Dr: Mckayla Blas NP Ordering Physician: Mckayla Blas NP Results: Date of Service: 12/13/23 Follow Up: Procedure(s): MM tomosynthesis screening BI Accession Number(s): [id number] cc: Mckayla Blas NP Patient Name: MITZI MACIAS MR#: [id number] : 1970 Exam Date: 12/13/2023 Ordering Doctor: SAYDA Blas UI SOFTWARE DEVELOPER RADIOLOGY REPORT PROCEDURE: MM TOMOSYNTHESIS SCREENING BI [...] cancer at age 75. LOCATION: The [facility] BREAST COMPOSITION: The breasts are [...] Signed By: 12/14/23 1122 DD/ 1121 TD/TT: Seed Pelleter: Procedure Note Radiology, Radiologist, MD - 12/14/2023 [place] [address] Mammography Report Signed Patient: MITZI MACIAS LMR#: [id number] : 1970Acct:[id number] Age/Sex: 53 / FADM Date: 12/13/23 Loc: MAMMO Attending Dr: Mckayla Blas BROOMCORN GRADER Ordering Physician: Mckayla Blas NPResults: Date of Service: 12/13/23Follow Up: Procedure(s): MM tomosynthesis screening BI Accession Number(s): [id number] cc: Mckayla Blas NP Patient Name: MITZI MACIAS MR#: [id number] : 1970 Exam Date: 12/13/2023 Ordering Doctor: [...] cancer at age 75. LOCATION: [facility] BREAST COMPOSITION: The breasts are [...] M.D. Signed By:12/14/23 1122 DD/ 1121 TD/TT: Seed Pelleter: Mckayla Blas NP [facility] Final Result from Last 3 Months or Most Recently Relevant to Health Maintenance Insurance MEDICARE [employer] AARP Care Teams [employer] Coach Relationship Specialty Start Date End Date Ty Amin MD [address] [place] [address] PCP - General Family Medicine 09/20/23 Mckayla Blas NP [address] [place] [address] Nurse Practitioner Family Medicine 09/20/23
--- OUTSIDE RECORDS SUMMARY | 2025-02-18 10:47 | XMS_ITS | CCD ---
Author Organization [facility] Care Team Providers Care Cyanide Pot Hardener Name Role Phone James Benavidez Primary Care Provider [phone] JAMES BENAVIDEZ Primary Care Unavailable SHENDGE, VITHAL Admitting Unavailable SHENDGE, VITHAL Attending Unavailable AICHHOLZ, MCKAYLA Primary Care Unavailable AICHHOLZ, MCKAYLA Referring Unavailable AICHHOLZ, MCKAYLA J Primary Care Physician [phone] Tico, Stephanie Unavailable OLE RAMIREZ Attending Unavailable OLE RAMIREZ Consulting Unavailable AICHHOLZ, BLOWER INSTALLER MCKAYLA Primary Care Unavailable OLE RAMIREZ Admitting Unavailable ANTONY SHRESTHA Consulting Unavailable ALONDRA ., UMBERTO Admitting Unavailable ALONDRA ., UMBERTO Attending Unavailable AICHHOLZ, BLOWER INSTALLER MCKAYLA Primary Care Unavailable AFSANEH Loera, DR BOLANOS Consulting Unavailable MARYANNE POWER Consulting Unavailable GLENN KERR Consulting Unavailable YOMAIRA KERR Consulting Unavailable HATTIE GOFF Consulting Unavailable ALONDRA ., UMBERTO Consulting Unavailable TICO, STEPHANIE Attending Unavailable TICO, STEPHANIE Consulting Unavailable AICHHOLZ, BLOWER INSTALLER MCKAYLA Primary Care Unavailable TICO, STEPHANIE Admitting Unavailable REGLA ., DR DUMONT Admitting Unavailable AICHHOLZ, BLOWER INSTALLER MCKAYLA Primary Care Unavailable REGLA ., DR DUMONT Attending Unavailable ARAUZ ., DR DUMONT Consulting Unavailable COLLIN HUERTAS Consulting Unavailable CECILIA KAUFMAN Admitting Unavailable CECILIA KAUFMAN Attending Unavailable AICHHOLZ, BLOWER INSTALLER MCKAYLA Primary Care Unavailable RAFAEL GONGORA Attending Unavailable RAFAEL GONGORA Admitting Unavailable AICHHOLZ, BLOWER INSTALLER MCKAYLA Primary Care Unavailable AICHHOLZ, BLOWER INSTALLER MCKAYLA Admitting Unavailable AICHHOLZ, BLOWER INSTALLER MCKAYLA Primary Care Unavailable AICHHOLZ, BLOWER INSTALLER MCKAYLA Attending Unavailable AICHHOLZ, BLOWER INSTALLER MCKAYLA Consulting Unavailable LAKSHMIPATHY ., NARENDRANATH Attending Anette vailable LAKSHMIPATHY ., NARENDRANATH Consulting Anette vailable LAKSHMIPATHY ., NARENDRANATH Admitting Anette vailable AICHHOLZ, BLOWER INSTALLER MCKAYLA Primary Care Unavailable VALENZUELA ., GIL Consulting Unavailable MORTENSEN ., DR CHAPARRO Aguillon Attending Unavailable MORTENSEN ., DR CHAPARRO Aguillon Admitting Unavailable AICHHOLZ, BLOWER INSTALLER MCKAYLA Primary Care Unavailable VALENZUELA ., GIL Consulting Unavailable MORTENSEN ., DR CHAPARRO Aguillon Admitting Unavailable AICHHOLZ, BLOWER INSTALLER MCKAYLA Primary Care Unavailable MORTENSEN ., DR CHAPARRO Aguillon Attending Unavailable HALKER ., SUBHASH Consulting Unavailable LAKSHMIPATHY ., NARENDRANATH Admitting Anette vailable LAKSHMIPATHY ., NARENDRANATH Attending Anette vailable AICHHOLZ, BLOWER INSTALLER MCKAYLA Primary Care Unavailable MORTENSEN ., DR CHAPARRO Aguillon Attending Unavailable MORTENSEN ., DR CHAPARRO Aguillon Admitting Unavailable VALENZUELA ., GIL Consulting Unavailable AICHHOLZ, BLOWER INSTALLER MCKAYLA Primary Care Unavailable VALENZUELA ., GIL Consulting Unavailable MORTENSEN ., DR CHAPARRO Aguillon Attending Unavailable MORTENSEN ., DR CHAPARRO Aguillon Admitting Unavailable AICHHOLZ, BLOWER INSTALLER MCKAYLA Primary Care Unavailable HATTIE BRODERICK Attending Unavailable HATTIE BRODERICK Admitting Unavailable AICHHOLZ, BLOWER INSTALLER MCKAYLA Primary Care Unavailable AICHHOLZ, BLOWER INSTALLER MCKAYLA Admitting Unavailable AICHHOLZ, BLOWER INSTALLER MCKAYLA Consulting Unavailable AICHHOLZ, BLOWER INSTALLER MCKAYLA Primary Care Unavailable AICHHOLZ, BLOWER INSTALLER MCKAYLA Attending Unavailable AICHHOLZ, BLOWER INSTALLER MCKAYLA Primary Care Unavailable MISC, DR LESLIE Admitting Unavailable MISC, DR LESLIE Attending Unavailable MISC, DR LESLIE Consulting Unavailable DIAB ., MARIANO Admitting Unavailable DIAB ., MARIANO Attending Unavailable DIAB ., MARIANO Consulting Unavailable AICHHOLZ, BLOWER INSTALLER MCKAYLA Primary Care Unavailable RASTEGAR, RICCO Consulting Unavailable AICHHOLZ, BLOWER INSTALLER MCKAYLA Admitting Unavailable AICHHOLZ, BLOWER INSTALLER MCKAYLA Primary Care Unavailable AICHHOLZ, BLOWER INSTALLER MCKAYLA Attending Unavailable AICHHOLZ, BLOWER INSTALLER MCKAYLA Consulting Unavailable DR PATRICIA VELOZ Consulting Unavailable TAMLYN ., CECILIA Attending Unavailable TAMLYN ., CECILIA Admitting Unavailable DR PATRICIA VELOZ Consulting Unavailable AICHHOLZ, BLOWER INSTALLER MCKAYLA Primary Care Unavailable TAMLYN ., CECILIA Consulting Unavailable MORTENSEN ., DR CHAPARRO Aguillon Attending Unavailable FESTUS ., DR CHAPARRO Aguillon Consulting Unavailable FESTUS ., DR CHAPARRO Aguillon Admitting Unavailable AICHHOLZ, BLOWER INSTALLER MCKAYLA Primary Care Unavailable HATTIE BRODERICK Attending Unavailable HATTIE BRODERICK Consulting Unavailable HATTIE BRODERICK Admitting Unavailable AICHHOLZ, BLOWER INSTALLER MCKAYLA Primary Care Unavailable HATTIE BAUTISTA Unavailable AICHHOLZ, SAYDA MCKAYLA Admitting Unavailable AICHHOLZ, BLOWER INSTALLER MCKAYLA Attending Unavailable AICHHOLZ, BLOWER INSTALLER MCKAYLA Consulting Unavailable AICHHOLZ, BLOWER INSTALLER MCKAYLA Primary Care Unavailable Brennan PHIPPS, Ty Primary Care Provider Brennan PHIPPS, Ty Primary Care Provider [phone] Aichholtalia FRETTED INSTRUMENT INSPECTOR, Mckayla Unavailable Aichholz FRETTED INSTRUMENT INSPECTOR, Mckayla Unavailable Elbert ARAUZ Attending Unavailable SARAH VEGA Attending Unavailable AICHHOLZ, MCKAYLA Attending Unavailable RAIN SOUZA F Attending Unavailable AICHHOLZ, MCKAYLA Attending Unavailable AICHHOLZ, MCKAYLA Attending Unavailable AICHHOLZ, MCKAYLA Attending Unavailable LIBBYRAIN GIANG F Attending Unavailable AICHHOLZ, MCKAYLA Attending Unavailable RAIN SOUZA F Attending Unavailable LIBBY, AHMAD F Referring Unavailable AICHHOLZ, MCKAYLA Attending Unavailable DAKOTAH BRIDGES Attending Unavailable AMI ORO Attending Unavailable Allergies Allergy Classification Reported Allergen(s) [...] Start Date: 02/06/22 Status: Ordered HYDROcodone-acet aminophen (Hurlock) 5-325 MG tablet 1 tablet 3 (three) times a day as needed for severe pain. Active take 1 tablet by vandana twice daily as needed Hurlock 5-325 MG 1 tablet as needed Orally TWICE A DAY Active albuterol 0.83 mg/ml inhalation solution (20 sources) beta2-Adrenergic Agonist Start: 02-06-2022 albut gilbert 0.083% Inh Tracey 3 mL Refill(s) 0 Start Date: 02/06/22 Status: Ordered albuterol (2.5 M G/3ML) 0.083% nebulizer solution Take 2.5 mg by nebulization every 6 (six) hours if needed for wheezing Active take 2 puff(s) by in halation every four hours for wheezing albuterol HFA 90 mcg/act inhaler Inhale 2 puffs every 4 (four) hours if needed for wheezing Active Albuterol Sulfat e (2.5 MG/3ML) 0.083% [...] by mouth at bedtime 90 tablet 1 01/26/2025 04/26/2025 Active aspirin 81 mg chewable tablet (20 sources) Platelet Aggregation Inhibitor, Nonsteroidal Anti-inflammatory Drug Start: 2023 End: 2024 aspirin 81 MG chewable tablet Indications: Type 2 diabetes mellitus with complication, with long-term current use of insulin (HCC) Chew 1 tablet (81 mg) Daily 90 tablet 3 01/26/2025 04/26/2025 Active aspirin 81 MG ch ewable tablet Chew 81 mg in the morning. 0 Active baclofen 10 mg oral tablet (20 sources) gamma-Aminobutyric Acid-ergic Agonist Start: 06-24-2024 take [...] sources) Histamine-1 Receptor Antagonist Start: 11-01-2023 End: 04-26-2025 take 1 tablet by mouth once daily cetirizine (ZyrTEC) 10 MG tablet Indications: Non-seasonal allergic rhinitis, unspecified trigger Take 1 tablet (10 mg) by mouth Daily 90 tablet 1 01/26/2025 04/26/2025 Active take 1 tablet by mouth in the mo rning cetirizine (ZyrTEC) 10 MG tablet Take 10 mg by mouth in the morning. 0 Active dapagliflozin 10 mg oral tablet (20 sources) Sodium-Glucose Cotransporter 2 Inhibitor Start: 01-17-2024 End: 04-26-2025 take 1 tablet by mouth once daily dapagliflozin (Farxiga) 10 MG Indications: Type 2 diabetes mellitus with unspecified complications (HCC) Take 1 tablet (10 mg) by mouth Daily 90 tablet 1 01/26/2025 04/26/2025 Active Start: 08-14-2023 End: 11-12-2023 take 1 [...] MG DR capsule Indications: Anxiety and depression Take 1 capsule (60 mg) by mouth in the morning and 1 capsule (60 mg) before bedtime. Do not crush or chew. 180 capsule 1 01/26/2025 04/26/2025 Active Start: 07-23-2023 End: 08-22-2023 take 1 [...] capsule (20 sources) Provitamin D2 Compound Start: 01-16-2025 End: 04-10-2025 take 1 capsule by mouth every week ergocalciferol (Vitamin D2) 1.25 MG (21400 UT) capsule Indications: Vitamin D deficiency, unspecified Take 1 capsule (1.25 mg) by mouth 1 (one) time per week 12 capsule 1 01/16/2025 04/10/2025 Active Start: 10-27-2024 End: 01-19-2025 take 1 capsule by mouth two times weekly ergocalciferol (Vitamin D2) 1.25 MG (48999 UT) capsule Indications: Vitamin D deficiency, unspecified Take 1 capsule (1.25 mg) by mouth 2 (two) times a week 24 capsule 1 10/27/2024 01/19/2025 Active Start: 04-06-2024 End: 10-27-2024 take 1 capsule by mouth every week ergocalciferol (Vitamin D2) 1.25 MG (26217 UT) capsule Indications: Vitamin D deficiency, unspecified TAKE 1 CAPSULE BY MOUTH ONE TIME PER WEEK 12 capsule 1 04/06/2024 10/27/2024 Discontinued (Reorder) fluconazole 150 mg oral tablet (20 sources) Azole Antifungal Start: 08-27-2024 End: 01-26-2025 fluconazole (Diflucan) 150 MG tablet Indications: Antibiotic-induced yeast infection One time dose, repeat in 3 days . Do not take cholesterol pill while taking this medication. Once finished then resume 2 tablet 1 01/26/2025 Active Start: 08-17-2023 End: 08-19-2023 fluconazole (Diflucan) [...] (20 sources) Loop Diuretic Start: 09-22-2024 End: 04-26-2025 take 1 tablet by mouth once daily furosemide (Lasix) 40 MG tablet Indications: Bilateral lower extremity edema Take 1 tablet (40 mg) by mouth Daily 90 tablet 1 01/26/2025 04/26/2025 Active Start: 07-07-2024 End: 04-26-2025 take 1 tablet by mouth once daily as needed for edema furosemide (Lasix) 20 MG tablet Indications: Bilateral lower extremity edema Take 1 tablet (20 mg) by mouth Daily as needed (edema) Take in the afternoon as needed 90 tablet 1 01/26/2025 04/26/2025 Active Start: 04-06-2024 End: 07-05-2024 take 1 [...] (20 sources) Arteriolar Vasodilator Start: 09-13-2023 End: 04-26-2025 take 1 tablet by mouth in the morning hydrALAZINE (Apresoline) 25 MG tablet Indications: Primary hypertension Take 1 tablet (25 mg) by mouth in the morning and 1 tablet (25 mg) before bedtime. 180 tablet 1 01/26/2025 04/26/2025 Active sodium hypochlorite 2.5 mg/ml topical solution (13 sources) Start: 09-24-2024 HySept 0.25 % external [...] Injection SLIDING SCALE BEFORE EACH MEAL Active insulin glargine 100 unt/ml injectable solution (20 sources) Insulin Analog Start: 01-29-2025 End: 07-28-2025 inject 58 [IU] by subcutaneous injection in the morning insulin glargine (Lantus) 100 UNIT/ML injection Indications: Type 2 diabetes mellitus with hyperglycemia, with long-term current use of insulin (HCC) Inject 58 Units under the skin in the morning and 58 Units before bedtime. 104.4 mL 1 01/29/2025 07/28/2025 Active Start: 08-26-2024 Lantus SoloSta r 100 UNIT/ML [...] inject 1 [IU] by sub cutaneous injection before mealtime Insulin Lispro (HUMALOG KWIKPEN SC) Inject under the skin in the morning and at noon and in the evening. Inject before meals. 8-10-12 units before meals and sliding scale. Active inject 1 [IU] by sub cutaneous injection three times daily before mealtime Insulin Lispro (HUMALOG KWIKPEN SC) Inject under the skin 3 (three) times a day before meals 8-10-12 units before meals and sliding scale Active ammonium lactate 120 mg/ml topical lotion (20 sources) Start: 07-22-2024 ammonium lacta te (Lac-Hydrin) 12 % lotion 07/22/2024 Active Start: 07-22-2024 ammonium lacta te (Lac-Hydrin) 12 % lotion APPLY TO BILATERAL FEET EVERY DAY 07/22/2024 Active lisinopril 20 mg oral tablet (20 sources) Angiotensin Converting Enzyme Inhibitor Start: 02-06-2022 End: 04-26-2025 take 1 tablet by mouth once daily lisinopril 20 MG tablet Indications: Primary hypertension Take 1 tablet (20 mg) by mouth Daily 90 tablet 1 01/26/2025 04/26/2025 Active meloxicam (5 sources) Nonsteroidal Anti-inflammatory Drug Start: 02-06-2022 meloxicam Daily, Refills(s) 0 Start Date: 02/06/22 Status: Ordered take [address] [facility] every twenty-four hours Meloxicam 7.5 MG [...] Active naloxone hydrochloride 40 mg/ml nasal spray (20 sources) Opioid Antagonist Start: 07-04-2024 naloxone (Narcan) 4 mg/0.1 mL nasal spray Administer 4 mg into affected nostril(s) if needed 07/04/2024 Active 24 hr nicotine 0.875 mg/hr transdermal system (20 sources) Cholinergic Nicotinic Agonist Start: 07-14-2024 End: [...] sources) Proton Pump Inhibitor Start: 12-25-2023 End: 04-26-2025 take 1 capsule by mouth before mealtime omeprazole (PriLOSEC) [address] capsule Indications: Gastro-esophageal reflux disease without esophagitis Take 1 capsule (20 mg) by mouth in the morning. Take before meals. 90 capsule 1 01/26/2025 04/26/2025 Active take 1 capsule by mouth before m ealtime omeprazole (PriLOSEC) [address] capsule Take 20 mg by mouth in the morning. Take before meals. Do not crush or chew. . 0 Active Oxygen (20 sources) oxygen (O2) gas Inhale 2 L/min continuously via nasal canula Active potassium chloride 10 meq extended release oral capsule (20 sources) Start: 02-06-2022 End: 04-26-2025 take 1 capsule by mouth once daily in the morning potassium chloride ER (Micro-K) 10 MEQ ER capsule Indications: Bilateral lower extremity edema Take 1 capsule (10 mEq) by mouth Daily Take 1 capsule (10 mEq) by mouth in the morning. 90 capsule 1 01/26/2025 04/26/2025 Active take 1 tablet by vandana th every twenty-four hours Potassium Chloride ER 10 MEQ 1 tablet with food Orally Once a day Active predniSONE 10 mg oral tablet (10 sources) Start: 12-05-2024 predniSONE (De ltasone) 10 [...] sources) Phosphodiesterase 4 Inhibitor Start: 01-04-2024 End: 04-26-2025 take 1 tablet by mouth once daily Roflumilast 500 MCG tablet Indications: Chronic obstructive pulmonary disease, unspecified (HCC) Take 1 tablet by mouth Daily 90 tablet 1 01/26/2025 04/26/2025 Active simvastatin 10 mg oral tablet (20 sources) HMG-CoA Reductase Inhibitor Start: 12-19-2024 End: 04-26-2025 take 1 tablet by mouth at bedtime simvastatin (Zocor) 10 MG tablet Indications: Hyperlipidemia, unspecified Take 1 tablet (10 mg) by mouth at bedtime 90 tablet 1 01/26/2025 04/26/2025 Active Start: 04-06-2024 End: 11-25-2024 take 1 [...] mg / trimethoprim 160 mg oral tablet (14 sources) Dihydrofolate Reductase Inhibitor Antibacterial, Sulfonamide Antimicrobial Start: 01-14-2025 take 1 tablet by mouth twice daily sulfamethoxazole-trimethoprim (Bactrim DS) 800-160 MG per tablet TAKE 1 TABLET BY MOUTH TWICE A DAY FOR 14 DAYS 01/14/2025 Active Start: 08-27-2024 End: 10-27-2024 sulfamethoxazole-trimethopri m (Bactrim DS) 800-160 MG per tablet 08/27/2024 10/27/2024 Discontinued (Therapy completed) Symbicort 160/4.5 inhalation aerosol with adapter (3 [...] Active Tirzepatide (Mounjaro) 15 MG/0.5ML solution auto-injector (20 sources) Start: 07-07-2024 inject 15 mg by [...] Drug Class(es) Dates Sig (Normalized) Sig (Original) amoxicillin 875 mg / clavulanate 125 mg oral tablet (6 sources) Penicillin-class Antibacterial Start: 12-05-2024 End: 01-26-2025 take 1 tablet by mouth every twelve hours amoxicillin-clavul anate (Augmentin) 875-125 MG tablet Take 1 tablet by mouth every 12 (twelve) hours 12/05/2024 01/26/2025 Discontinued (Therapy completed) cephalexin 500 mg oral capsule (9 sources) [...] by mouth Daily 08/27/2024 Discontinued (Therapy completed) ubrogepant 100 mg oral [...] TOES ACQUIRED LT FOOT] Onset: 09-01-2022 Chronic Anxiety disorders (20 sources) Mixed anxiety and [...] 10-09-2022 02-06-2022 Chronic Chronic ulcer of skin (20 sources) Non-pressure chronic ulcer of other part [...] Resolved: 03-08-2022 Chronic Diabetes mellitus without complication (13 sources) Type 2 diabetes mellitus; Translations: [Type 2 diabetes mellitus without complications] Onset: 04-27-2022 02-06-2022 Chronic Disorders of lipid metabolism (20 sources) Pure hypercholesterolemia, unspecified; Translations: [Hyperlipidemia, unspecified] Onset: 04-06-2022 09-17-2023 Chronic Esophageal disorders (20 sources) Gastro-esophageal reflux disease without esophagitis; Translations: [Gastroesophageal reflux disease] Onset: 12-05-2022 Resolved: 01-26-2025 09-17-2023 Chronic Essential hypertension (20 sources) Hypertensive disorder; Translations: [Essential (primary) hypertension] Onset: 11-23-2022 02-06-2022 Chronic Fever of unknown origin (12 sources) Fever; Translations: [Fever, unspecified] Onset: 12-09-2024 [...] COLITIS UNS] Onset: 10-09-2022 Episodic Nutritional deficiencies (20 sources) Vitamin D deficiency; Translations: [Vitamin D deficiency, unspecified] Onset: 10-27-2024 05-27-2024 Chronic Osteoarthritis (20 sources) Arthritis; Translations: [Unspecified osteoarthritis, unspecified site] Onset: 04-20-2022 02-06-2022 Chronic Other aftercare (1 source) Other usp (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 therapy; Translations: [OTH RESIDENTIAL CURRENT DRUG THERAPY] Onset: 12-05-2022 Episodic Other aftercare (1 source) 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 (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; Translations: [SUBSTANCE ABUSE TECHNICIAN CURRENT USE OF ASPIRIN] Onset: 12-05-2022 Episodic Other aftercare (6 sources) Long-term current use of insulin; Translations: [detention (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] 05-27-2024 Episodic Other and ill-defined heart disease (20 sources) Cardiomegaly; Translations: [Cardiomegaly] Onset: 10-25-2017 09-17-2023 Chronic Other and ill-defined heart disease (1 source) Cardiomegaly; Translations: [Cardiomegaly] Onset: 01-06-2025 Chronic Other and unspecified benign neoplasm (1 [...] Chronic Other diseases of veins and lymphatics (17 sources) Chronic peripheral venous hypertension; Translations: [Chronic venous hypertension (idiopathic) with ulcer of bilateral lower extremity] Onset: 08-27-2024 08-27-2024 Chronic Other diseases of veins and lymphatics (10 sources) Stasis dermatitis and venous ulcer of right lower extremity due to chronic peripheral venous hypertension; Translations: [Chronic venous hypertension (idiopathic) with ulcer and inflammation of right lower extremity] Onset: 12-09-2024 12-09-2024 Chronic Other endocrine disorders (2 sources) Disorder [...] nutritional; endocrine; and metabolic disorders (20 sources) Body mass index 40+ - severely [...] HX MALIGNANT NEOPLASM UNS] Onset: 11-25-2022 Episodic Skin and subcutaneous tissue infections (16 sources) Cellulitis of right lower limb; Translations: [Cutaneous abscess of left axilla] Onset: 07-18-2022 Episodic Substance-related disorders (20 sources) Nicotine dependence; Translations: [Nicotine dependence, unspecified, uncomplicated] Onset: 02-06-2022 Chronic Comment on above: Added secondary to d ocumentation in Social History. Unclassified (1 source) SUBSTANCE ABUSE TECHNICIAN INJECT NONINSULN ANTIDIAB; Translations: [SUBSTANCE ABUSE TECHNICIAN INJECT NONINSULN ANTIDIAB] Onset: 12-05-2022 Unclassified (3 [...] TOES ACQ LT FOOT] Onset: 09-01-2022 Episodic Administrative/socia l admission (20 sources) Patient encounter status; Translations: [Dietary counseling and surveillance] Onset: 11-01-2023 11-01-2023 Episodic Calculus of urinary tract (20 sources) [...] of vagina] Onset: 07-26-2022 Episodic Nutritional deficiencies (20 sources) Vitamin deficiency; Translations: [Vitamin deficiency, unspecified] Onset: 08-27-2024 08-27-2024 Episodic Other aftercare (3 sources) detention (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; Translations: [SUBSTANCE ABUSE TECHNICIAN CURRENT USE OF INSULIN] Onset: 12-05-2022 Episodic Other aftercare (20 sources) Long-term current use of inhaled steroid; Translations: [detention (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 inhaled steroids] Onset: 08-27-2024 08-27-2024 Episodic Other and unspecified benign neoplasm (20 sources) Myelolipoma of adrenal gland; Translations: [Benign lipomatous neoplasm of other sites] Onset: 07-14-2024 06-11-2024 Episodic Other connective tissue disease (4 sources) Other muscle spasm; Translations: [OTHER MUSCLE SPASM] Onset: 01-19-2022 Episodic Other diseases of veins and lymphatics (20 sources) Vascular insufficiency; Translations: [Venous insufficiency (chronic) (peripheral)] Onset: 09-17-2023 09-17-2023 Episodic Other diseases of veins and lymphatics (2 sources) Venous insufficiency (chronic) (peripheral); Translations: [Venous insufficiency (chronic) (peripheral)] Onset: 11-14-2023 Episodic Other hematologic conditions (1 source) Secondary polycythemia Onset: 03-08-2022 Resolved: 03-08-2022 Episodic Other nervous system disorders (20 sources) [...] Resolved: 10-27-2024 09-17-2023 Episodic Residual codes; unclassified (3 sources) Localized edema; Translations: [LOCALIZED EDEMA] Onset: 09-01-2022 Episodic Residual codes; unclassified (20 sources) Edema; Translations: [Edema, unspecified] Onset: 07-10-2023 Resolved: 07-10-2023 08-14-2023 Episodic Residual codes; unclassified (20 sources) Bilateral lower limb edema; Translations: [Localized edema] Onset: 07-10-2023 07-10-2023 Episodic Residual codes; unclassified (20 sources) Insomnia; Translations: [Insomnia, unspecified] Onset: 09-17-2023 09-17-2023 Episodic Residual codes; unclassified (20 sources) Tobacco [...] Test Name Value Interpretation Reference Range Facility Orders Onlyon 01-30-2025 Orders Only [id number] Mitzi Macias 1970 F Date Provider Department Center 01/30/2025 [id number], HISTORICAL [facility] Family History Problem Relation Age of Onset Heart attack Paternal Grandmother Family Status - Relation Status Age at Mother Father Paternal Grandmother Normal [facility] CA ECHO DOPPLER COMPLETEon 0 01-29-2025 [place] [address] Cardiology Report Signed Patient: MITZI MACIAS MR#: [id number] : 1970 Acct:[id number] Age/Sex: 54 / F ADM Date: 01/29/25 Loc: CARD Attending Dr: AMI ORO APRN Ordering Physician: AMI ORO APRN Date of Service: 01/29/25 Procedure(s): CA echo doppler complete Accession Number(s): [id number] cc: Mckayla Blas FRETTED INSTRUMENT INSPECTOR; AMI ORO APRN Patient Name: MITZI MACIAS MR#: [id number] : 1970 Exam Date: 01/29/2025 Ordering Doctor: AMI ORO [facility] ECHOCARDIOGRAM REPORT PROCEDURE: CA ECHO DOPPLER COMPLETE [...] 61.44 ml, 61.44 ml Dictated by: Bharat Herrera M.D. on 01/29/2025 at 18:37 Approved by: Bharat Herrera M.D. on 01/29/2025 at 18:40 Dictated By: BHARAT HERRERA Signed By: 01/29/251839 DD/ 39 TD/TT: Medical Records Secretary: [facility] Radiology, Radiologist, MD - 01/29/2025 [place] [address] Cardiology Report Signed Patient: MITZI MACIAS MR#: [id number] : 1970 Acct:[id number] Age/Sex: 54 / F ADM Date: 01/29/25 Loc: CARD Attending Dr: AMI ORO APRN Ordering Physician: AMI ORO APRN Date of Service: 01/29/25 Procedure(s): CA echo doppler complete Accession Number(s): [id number] cc: Mckayla Blas FRETTED INSTRUMENT INSPECTOR; AMI ORO APRN Patient Name: MITZI MACIAS MR#: [id number] : 1970 Exam Date: 01/29/2025 Ordering Doctor: AMI ORO CNP ECHOCARDIOGRAM REPORT PROCEDURE: CA ECHO DOPPLER COMPLETE [...] 61.44 ml, 61.44 ml Dictated by: Bharat Herrera M.D. on 01/29/2025 at 18:37 Approved by: Bharat Herrera M.D. on 01/29/2025 at 18:40 Dictated By: BHARAT HERRERA Signed By: 01/29/251839 DD/ 39 TD/TT: Medical Records Secretary: [facility] Radiology Study observation (narrative) [facility] CA ECHO DOPPLER COMPLETEOrde red By: Radiologist Radiology on 01-29-2025 [facility] Work Phone: Glucose (Bld) [Mass/Vol]on 0 01-29-2025 Glucose Blood, POC 121 mg/dL [facility] Laboratory - Hematology and Cell countson 01-29-2025 HbA1c (Bld) [Mass fraction] 8.4 % [facility] No Panel Informationon 01-29 Interpretation and review of laboratory results Abnormal [facility] Healthcare Office Visiton 01-06-2025 Follow-up visit [id number] Mitzi Macias 1970 F Date Provider Department Center 01/06/2025 [facility]I [facility] Family History Problem Relation Age of Onset Heart attack Paternal Grandmother Family Status - Relation Status Age at Mother Father Paternal Grandmother Level of Service:17621 [place] OFFICE/OUTPATIENT ESTABLISHED MOD MDM 30 MIN Reason for Visit and Comments: Congestive Heart Failure [127] Hypertension [412742] Hyperlipidemia [182] Normal [facility] 36on 10-21-2024 36 Regarding lab results from 10/08/2024: MD Mickie Merritt MA Lipids, ALT AST, and BMP are normal. HbA1c was not performed. Continue current management. LM on patient's VM. Normal [facility] Glucose (Bld) [Mass/Vol]Orde red By: Mica Sauceda on 10-08-2024 Glucose Blood, POC 97 mg/dL [facility] Laboratory - Hematology and Cell countson 10-08-2024 HbA1c (Bld) [Mass fraction] 7.4 % [facility] No Panel InformationOrdered By: Mica Sauceda on 10-08-2024 [facility] TBH UA (CLEAN/CATCH) MICROSC OPIC IF INDICATEon 10-08-2024 BILIRUBIN URINE Negative NEGATIVE [facility] BLOOD URINE Negative NEGATIVE [facility] Clarity (U) CLEAR CLEAR [facility] Color (U) YELLOW YELLOW [facility] GLUCOSE URINE UA Negative NEGATIVE mg/dL [facility] Interpretation and review of laboratory results Abnormal [facility] Ketones Ql (U) Negative NEGATIVE mg/dL [facility] Leukocyte esterase Test strip Ql (U) Negative NEGATIVE [facility] NITRITE URINE Negative NEGATIVE [facility] pH (U) 5.5 [pH] 5.0 - 9.0 [facility] Protein (U) [Mass/Vol] 30 mg/dL Abnormal NEG/TRACE NO [facility] SPECIFIC GRAVITY URINE >=1.030 Abnormal 1.005 - 1.025 [facility] URINE MICROSCOPIC INDICATED YES [facility] UROBILINOGEN URINE 1.0 EU/dL 0.2 - 1.0 EU/dL [facility] ALL CBC WITH AUTO DIFFon BASOPHILS ABSOLUTE AUTO 0.1 [facility] Basophils/100 WBC (Bld) 0.5 % 0.2 - 2.0 % [facility] Eosinophils/100 WBC (Bld) 1.9 % 0.9 - 7.0 % [facility] Erythrocyte distribution width (RBC) [Ratio] 14.6 % 11.0 - 15.0 % [facility] Hematocrit (Bld) [Volume fraction] 50.9 % High 36.0 - 48.0 % [facility] Hemoglobin (Bld) [Mass/Vol] 16.1 g/dL High 12.0 - 16.0 g/dL [facility] IMMATURE GRANULOCYTES ABS AUTO 0.04 High [facility] Immature granulocytes/100 WBC (Bld) 0.3 % 0.0 - 0.5 % [facility] Interpretation and review of laboratory results Abnormal [facility] LYMPHOCYTES ABSOLUTE AUTO 3.2 [facility] Lymphocytes/100 WBC (Bld) 25.1 % 20.5 - 60.0 % [facility] MCH (RBC) [Entitic mass] 29.2 pg 26.7 - 34.0 pg [facility] MCHC (RBC) [Mass/Vol] 31.6 g/dL 29.9 - 35.2 g/dL [facility] MCV (RBC) [Entitic vol] 92.2 fL 81.0 - 99.0 fL [facility] MONOCYTES ABSOLUTE AUTO 0.7 [facility] Monocytes/100 WBC (Bld) 5.2 % 1.7 - 12.0 % [facility] NEUTROPHILS ABSOLUTE AUTO 8.6 High [facility] Neutrophils/100 WBC (Bld) 67 % 43.0 - 75.0 % [facility] Platelet mean volume (Bld) [Entitic vol] 12.8 fL 9.5 - 13.5 fL [facility] EO # 0.2 [facility] PLT 122 Low [facility] RBC 5.52 High [facility] WBC 12.8 High [facility] Office Visiton 08-08-2024 Follow-up visit [id number] Mitzi Macias 1970 F Date Provider Department Center 08/08/2024 [id number] BRIDGES [facility] Family History Problem Relation Age of Onset Heart attack Paternal Grandmother Family Status - Relation Status Age at Paternal Grandmother Level of Service:87591 [place] OFFICE/OUTPATIENT ESTABLISHED MOD MDM 30 MIN Reason for Visit and Comments: Congestive Heart Failure [127] - Denies chest pain, SOB, and palpitations. Hypertension [381309] Hyperlipidemia [182] LVH [Other] Edema [[id number]] - Denies worsening edema. She sees wound care for RLE ulcer. She was seeing the vein specialists here in [facility] but they are moving to [place] in a few weeks. Normal [facility] Glucose (Bld) [Mass/Vol]Orde red By: Mica Sauceda on 05-27-2024 Glucose Blood, POC 158 mg/dL [facility] Laboratory - Hematology and Cell countson 05-27-2024 HbA1c (Bld) [Mass fraction] 9.2 % [facility] No Panel InformationOrdered By: Mica Sauceda on 05-27-2024 [facility] CREATININEon 05-12-2024 Creatinine [Mass/Vol] 0.92 mg/dL 0.55 - 1.02 mg/dL [facility] GFR/1.73 sq M.predicted CKD-EPI (S/P/Bld) [Vol rate/Area] >60 >=60 mL/min/1.73m 2 [facility] EGFR-NON AF GHANAIAN >60 >=60 mL/min/1.73m 2 [facility] CBC AUTO DIFFon 12-06-2022 BASO # 0.0 103/ul Normal 0.0-0.1 [facility] Comment on above: Performed By: #### C BC #### [facility] [address] [address] [address] Ashlie Hills Basophils/100 WBC (Bld) 0.1 % Critically low 0.2-2.0 [facility] Comment on above: Performed By: #### C BC #### [facility] [address] [address] [address] Ashlie Hills EO # 0.0 103/ul Normal 0.0-0.7 [facility] Comment on above: Performed By: #### C BC #### [facility] [address] [address] [address] Ashlie Hills Eosinophils/100 WBC (Bld) 0.0 % Critically low 0.9-7.0 [facility] Comment on above: Performed By: #### C BC #### [facility] [address] [place] [address] Dr. Ashlie Hills Erythrocyte distribution width (RBC) [Ratio] 14.9 % Normal 11.0-15.0 [facility] Comment on above: Performed By: #### C BC #### [facility] [address] [place] [address] Dr. Ashlie Hills Hematocrit (Bld) [Volume fraction] 46.2 % Normal 36.0-48.0 [facility] Comment on above: Performed By: #### C BC #### [facility] [address] [place] [address] Dr. Ashlie Hills Hemoglobin (Bld) [Mass/Vol] 14.7 g/dL Normal 12.0-16.0 [facility] Comment on above: Performed By: #### C BC #### [facility] [address] [address] [address] Ashlie Hills IG # 0.06 10e3/ul Critically high 0.00-0.03 [facility] Comment on above: Performed By: #### C BC #### [facility] [address] [place] [address] Dr. Ashlie Hills IG % 0.4 % Normal 0.0-0.5 [facility] Comment on above: Performed By: #### C BC #### [facility] [address] [place] [address] Dr. Ashlie Hills LYMPH # 1.3 103/ul Normal 1.2-3.8 [facility] Comment on above: Performed By: #### C BC #### [facility] [address] [place] [address] Dr. Ashlie Hills Lymphocytes/100 WBC (Bld) 9.4 % Critically low 20.5-60.0 [facility] Comment on above: Performed By: #### C BC #### [facility] [address] [place] [address] Dr. Ashlie Hills MANUAL DIFF REQ NO Normal [facility] Comment on above: Performed By: #### C BC #### [facility] [address] [place] [address] Dr. Ashlie Hills MCH (RBC) [Entitic mass] 28.4 pg Normal 26.7-34.0 [facility] Comment on above: Performed By: #### C BC #### [facility] [address] [place] [address] Dr. Ashlie Hills MCHC (RBC) [Mass/Vol] 31.8 g/dL Normal 29.9-35.2 [facility] Comment on above: Performed By: #### C BC #### [facility] [address] [place] [address] Dr. Ashlie Hills MCV (RBC) [Entitic vol] 89.4 fL Normal 81.0-99.0 [facility] Comment on above: Performed By: #### C BC #### [facility] [address] [place] [address] Dr. Ashlie Hills MONO # 0.5 103/ul Normal 0.3-0.8 [facility] Comment on above: Performed By: #### C BC #### [facility] [address] [place] [address] Dr. Ashlie Hills Monocytes/100 WBC (Bld) 3.4 % Normal 1.7-12.0 [facility] Comment on above: Performed By: #### C BC #### [facility] [address] [place] [address] Dr. Ashlie Hills NEUT # 11.8 103/ul Critically high 1.4-6.5 [facility] Comment on above: Performed By: #### C BC #### [facility] [address] [place] [address] Dr. Ashlie Hills Neutrophils/100 WBC (Bld) 86.7 % Critically high 43.0-75.0 [facility] Comment on above: Performed By: #### C BC #### [facility] [address] [place] [address] Dr. Ashlie Hills Platelet mean volume (Bld) [Entitic vol] 12.6 fL Normal 9.5-13.5 [facility] Comment on above: Performed By: #### C BC #### [facility] [address] [place] [address] Dr. Ashlie Hills PLT 133 103/ul Critically low 150-450 [facility] Comment on above: Performed By: #### C BC #### [facility] [address] [place] [address] Dr. Ashlie Hills RBC 5.17 106/ul Normal 4.20-5.40 [facility] Comment on above: Performed By: #### C BC #### [facility] [address] [place] [address] Dr. Ashlie Hills WBC 13.6 103/ul Critically high 4.0-11.0 [facility] Comment on above: Performed By: #### C BC #### [facility] [address] [place] [address] Dr. Ashlie Hills MAGNESIUMon 12-06-2022 Magnesium [Mass/Vol] 2.2 mg/dL Normal 1.8-2.4 [facility] Comment on above: Performed By: #### I NFLUAB #### [facility] [address] [place] [address] Dr. Ashlie Hills POINT OF CARE GLUCOSEon - Glucose [Mass/Vol] 340 mg/dL Critically high 74-106 T [facility] Comment on above: Performed By: #### P OCGLUC #### [facility] [address] [address] [address] Ashlie Hills Glucose [Mass/Vol] 276 mg/dL Critically high 74-106 [facility] Comment on above: Performed By: #### C BC #### [facility] [address] [address] [address] Ashlie Hills Glucose [Mass/Vol] 333 mg/dL Critically high 74-106 [facility] Comment on above: Performed By: #### C BC #### [facility] [address] [address] [address] Ashlie Hills PROF CHEM 8 (BAS METB)on Anion gap [Moles/Vol] 10.9 mmol/L Normal [facility] Comment on above: Performed By: #### I NFLUAB #### [facility] [address] [place] [address] Dr. Ashlie Hills Calcium [Mass/Vol] 9.3 mg/dL Normal 8.5-10.1 [facility] Comment on above: Performed By: #### I NFLUAB #### [facility] [address] [address] [address] Ashlie Hills Chloride [Moles/Vol] 103 mmol/L Normal 98-107 [facility] Comment on above: Performed By: #### I NFLUAB #### [facility] [address] [place] [address] Dr. Ashlie Hills CO2 [Moles/Vol] 31.2 mmol/L Normal 21.0-32.0 [facility] Comment on above: Performed By: #### I NFLUAB #### [facility] [address] [address] [address] Ashlie Hills Creatinine [Mass/Vol] 0.96 mg/dL Normal 0.55-1.02 [facility] Comment on above: Performed By: #### I NFLUAB #### [facility] [address] [address] [address] Ashlie Hills EGFR-AF GHANAIAN >60 Normal >=60 [facility] Comment on above: Performed By: #### I NFLUAB #### [facility] [address] [address] [address] Ashlie Hills EGFR-NON AF GHANAIAN >60 Normal >=60 [facility] Comment on above: Performed By: #### I NFLUAB #### [facility] [address] [address] [address] Ashlie Hills Glucose [Mass/Vol] 288 mg/dL Critically high 74-106 T [facility] Comment on above: Performed By: #### I NFLUAB #### [facility] [address] [address] [address] Ashlie Hills Potassium [Moles/Vol] 5.1 mmol/L Normal 3.5-5.1 [facility] Comment on above: Performed By: #### I NFLUAB #### [facility] [address] [place] [address] Dr. Ashlie Hills Sodium [Moles/Vol] 140 mmol/L Normal 136-145 [facility] Comment on above: Performed By: #### I NFLUAB #### [facility] [address] [place] [address] Dr. Ashlie Hills Urea nitrogen [Mass/Vol] 30.0 mg/dL Critically high 7.0-18.0 [facility] Comment on above: Performed By: #### I NFLUAB #### [facility] [address] [place] [address] Dr. Ashlie Hills Urea nitrogen/Creatinine [Mass ratio] 31.2 mg/mg Normal [facility] Comment on above: Performed By: #### I NFLUAB #### [facility] [address] [place] [address] Dr. Ahslie Hills CBC AUTO DIFFon 12-05-2022 BASO # 0.0 103/ul Normal 0.0-0.1 [facility] Comment on above: Performed By: #### C BC #### [facility] [address] [place] [address] Dr. Ashlie Hills Basophils/100 WBC (Bld) 0.4 % Normal 0.2-2.0 [facility] Comment on above: Performed By: #### C BC #### [facility] [address] [address] [address] Ashlie Hills EO # 0.0 103/ul Normal 0.0-0.7 [facility] Comment on above: Performed By: #### C BC #### [facility] [address] [place] [address] Dr. Ashlie Hills Eosinophils/100 WBC (Bld) 0.0 % Critically low 0.9-7.0 [facility] Comment on above: Performed By: #### C BC #### [facility] [address] [place] [address] Dr. Ashlie Hills Erythrocyte distribution width (RBC) [Ratio] 14.8 % Normal 11.0-15.0 [facility] Comment on above: Performed By: #### C BC #### [facility] [address] [place] [address] Dr. Ashlie Hills Hematocrit (Bld) [Volume fraction] 49.9 % Critically high 36.0-48.0 [facility] Comment on above: Performed By: #### C BC #### [facility] [address] [place] [address] Dr. Ashlie Hills Hemoglobin (Bld) [Mass/Vol] 15.7 g/dL Normal 12.0-16.0 [facility] Comment on above: Performed By: #### C BC #### [facility] [address] [place] [address] Dr. Ashlie Hills IG # 0.04 10e3/ul Critically high 0.00-0.03 [facility] Comment on above: Performed By: #### C BC #### [facility] [address] [place] [address] Dr. Ashlie Hills IG % 0.5 % Normal 0.0-0.5 [facility] Comment on above: Performed By: #### C BC #### [facility] [address] [place] [address] Dr. Ashlie Hills LYMPH # 1.1 103/ul Critically low 1.2-3.8 [facility] Comment on above: Performed By: #### C BC #### [facility] [address] [address] [address] Ashlie Hills Lymphocytes/100 WBC (Bld) 12.7 % Critically low 20.5-60.0 [facility] Comment on above: Performed By: #### C BC #### [facility] [address] [address] [address] Ashlie Hills MANUAL DIFF REQ NO Normal [facility] Comment on above: Performed By: #### C BC #### [facility] [address] [address] [address] Ashlie Hills MCH (RBC) [Entitic mass] 28.1 pg Normal 26.7-34.0 [facility] Comment on above: Performed By: #### C BC #### [facility] [address] [place] [address] Dr. Ashlie Hills MCHC (RBC) [Mass/Vol] 31.5 g/dL Normal 29.9-35.2 [facility] Comment on above: Performed By: #### C BC #### [facility] [address] [place] [address] Dr. Ashlie Hills MCV (RBC) [Entitic vol] 89.3 fL Normal 81.0-99.0 [facility] Comment on above: Performed By: #### C BC #### [facility] [address] [place] [address] Dr. Ashlie Hills MONO # 0.1 103/ul Critically low 0.3-0.8 [facility] Comment on above: Performed By: #### C BC #### [facility] [address] [place] [address] Dr. Ashlie Hills Monocytes/100 WBC (Bld) 1.3 % Critically low 1.7-12.0 [facility] Comment on above: Performed By: #### C BC #### [facility] [address] [place] [address] Dr. Ashlie Hills NEUT # 7.2 103/ul Critically high 1.4-6.5 [facility] Comment on above: Performed By: #### C BC #### [facility] [address] [address] [address] Ashlie Hills Neutrophils/100 WBC (Bld) 85.1 % Critically high 43.0-75.0 [facility] Comment on above: Performed By: #### C BC #### [facility] [address] [address] [address] Ashlie Hills Platelet mean volume (Bld) [Entitic vol] 12.2 fL Normal 9.5-13.5 [facility] Comment on above: Performed By: #### C BC #### [facility] [address] [address] [address] Ashlie Hills PLT 116 103/ul Critically low 150-450 [facility] Comment on above: Performed By: #### C BC #### [facility] [address] [place] [address] Dr. Ashlie Hills RBC 5.59 106/ul Critically high 4.20-5.40 [facility] Comment on above: Performed By: #### C BC #### [facility] [address] [address] [address] Ashlie Hills WBC 8.5 103/ul Normal 4.0-11.0 [facility] Comment on above: Performed By: #### C BC #### [facility] [address] [place] [address] Dr. Ashlie Hills CTA CHEST WO W [...] by: HATTIE GOFF Date: 2022-12-05 01:52 Normal [facility] MAGNESIUMon 12-05-2022 Magnesium [Mass/Vol] 2.1 mg/dL Normal 1.8-2.4 [facility] Comment on above: Performed By: #### P OCGLUC #### [facility] [address] [address] [address] Ashlie Hills POINT OF CARE GLUCOSEon 11-08 Glucose [Mass/Vol] 293 mg/dL Critically high [address] [place] [address] Comment on above: Performed By: #### P OCGLUC #### [facility] [address] [address] [address] Ashlie Hills Glucose [Mass/Vol] 269 mg/dL Critically high [facility] Comment on above: Performed By: #### P OCGLUC #### [facility] [address] [address] [address] Ashlie Hills Glucose [Mass/Vol] 223 mg/dL Critically high [address] [place] [address] Comment on above: Performed By: #### C VDAGS #### [facility] [address] [address] [address] Ashlie Hills PROF CHEM 8 (BAS METB)on Anion gap [Moles/Vol] 11.6 mmol/L Normal [facility] Comment on above: Performed By: #### P OCGLUC #### [facility] [address] [address] [address] Ashlie Hills Calcium [Mass/Vol] 9.2 mg/dL Normal 8.5-10.1 [facility] Comment on above: Performed By: #### P OCGLUC #### [facility] [address] [address] [address] Ashlie Hills Chloride [Moles/Vol] 102 mmol/L Normal 98-107 [facility] Comment on above: Performed By: #### P OCGLUC #### [facility] [address] [address] [address] Ashlie [place] CO2 [Moles/Vol] 28.7 mmol/L Normal 21.0-32.0 [facility] Comment on above: Performed By: #### P OCGLUC #### [facility] [address] [address] [address] Ashlie Hills Creatinine [Mass/Vol] 1.04 mg/dL Critically high 0.55-1.02 [facility] Comment on above: Performed By: #### P OCGLUC #### [facility] [address] [address] [address] Ashlie Hills EGFR-AF GHANAIAN >60 Normal >=60 [facility] Comment on above: Performed By: #### P OCGLUC #### [facility] [address] [address] [address] Ashlie Hills EGFR-NON AF GHANAIAN 56 mL/min/1.73m2 Critically low >=60 [facility] Comment on above: Performed By: #### P OCGLUC #### [facility] [address] [address] [address] Ashlie [place] Glucose [Mass/Vol] 231 mg/dL Critically high 74-106 [facility] Comment on above: Performed By: #### P OCGLUC #### [facility] [address] [address] [address] Ashlie Hills Potassium [Moles/Vol] 4.3 mmol/L Normal 3.5-5.1 [facility] Comment on above: Performed By: #### P OCGLUC #### [facility] [address] [place] [address] Dr. Ashlie Hills Sodium [Moles/Vol] 138 mmol/L Normal 136-145 [facility] Comment on above: Performed By: #### P OCGLUC #### [facility] [address] [place] [address] Dr. Ashlie Hills Urea nitrogen [Mass/Vol] 17.0 mg/dL Normal 7.0-18.0 [facility] Comment on above: Performed By: #### P OCGLUC #### [facility] [address] [place] [address] Dr. Ashlie Hills Urea nitrogen/Creatinine [Mass ratio] 16.3 mg/mg Normal [facility] Comment on above: Performed By: #### P OCGLUC #### [facility] [address] [place] [address] Dr. Ashlie Hills RESPIRATORY PANEL PLUSon Adenovirus Not detected Normal NOT DETECTED [facility] Comment on above: Performed By: #### C VDAGS #### [facility] [address] [place] [address] Dr. Ashlie Shaffer. Parapertusis Not detected Normal NOT DETECTED [facility] Comment on above: Performed By: #### C VDAGS #### [facility] [address] [place] [address] Dr. Ashlie Shaffer. Pertussis Not detected Normal NOT DETECTED [facility] Comment on above: Performed By: #### C VDAGS #### [facility] [address] [place] [address] Dr. Ashlie Hills Chlamydia Pneumoniae Not detected Normal NOT DETECTED [facility] Comment on above: Performed By: #### C VDAGS #### [facility] [address] [place] [address] Dr. Ashlie Hills Coronavirus 229E Not detected Normal NOT DETECTED [facility] Comment on above: Performed By: #### C VDAGS #### [facility] [address] [place] [address] Dr. Ashlie Hills Coronavirus HKU1 Not detected Normal NOT DETECTED [facility] Comment on above: Performed By: #### C VDAGS #### [facility] [address] [place] [address] Dr. Ashlie Hills Coronavirus NL63 Not detected Normal NOT DETECTED [facility] Comment on above: Performed By: #### C VDAGS #### [facility] [address] [address] [address] Ashlie Hills Coronavirus OC43 Not detected Normal NOT DETECTED [facility] Comment on above: Performed By: #### C VDAGS #### [facility] [address] [address] [address] Ashlie Hills Influenza A H1 Not detected Normal NOT DETECTED The [facility] Comment on above: Performed By: #### C VDAGS #### [facility] [address] [place] [address] Dr. Ashlie Hills Influenza A H1 2009 Not detected Normal NOT DETECTED [facility] Comment on above: Performed By: #### C VDAGS #### [facility] [address] [place] [address] Dr. Ashlie Hills Influenza A H3 Not detected Normal NOT DETECTED [facility] Comment on above: Performed By: #### C VDAGS #### [facility] [address] [place] [address] Dr. Ashlie Hills Influenza B Not detected Normal NOT DETECTED The [facility] Comment on above: Performed By: #### C VDAGS #### [facility] [address] [place] [address] Dr. Ashlie Hills Metapneumovirus Not detected Normal NOT DETECTED The [facility] Comment on above: Performed By: #### C VDAGS #### [facility] [address] [place] [address] Dr. Ashlie Hills Mycoplas. Pneumoniae Not detected Normal NOT DETECTED [facility] Comment on above: Performed By: #### C VDAGS #### [facility] [address] [address] [address] Ashlie Hills Parainfluenza 1 Not detected Normal NOT DETECTED The [facility] Comment on above: Performed By: #### C VDAGS #### [facility] [address] [place] [address] Dr. Ashlie Hills Parainfluenza 2 Not detected Normal NOT DETECTED [facility] Comment on above: Performed By: #### C VDAGS #### [facility] [address] [place] [address] Dr. Ashlie Hills Parainfluenza 3 Detected Abnormal NOT DETECTED The [facility] Comment on above: Performed By: #### C VDAGS #### [facility] [address] [place] [address] Dr. Ashlie Hills Parainfluenza 4 Not detected Normal NOT DETECTED [facility] Comment on above: Performed By: #### C VDAGS #### [facility] [address] [place] [address] Dr. Ashlie Hills Rhino/Enterovirus Not detected Normal NOT DETECTED [facility] Comment on above: Performed By: #### C VDAGS #### [facility] [address] [place] [address] Dr. Ashlie Hills RP2 Header 1 RESPIRATORY PANEL: VIRUSES Normal [facility] Comment on above: Performed By: #### C VDAGS #### [facility] [address] [place] [address] Dr. Ashlie Hills RP2 Header 2 RESPIRATORY PANEL: BACTERIA Normal [facility] Comment on above: Performed By: #### C VDAGS #### [facility] [address] [place] [address] Dr. Ashlie Hills RSV Not detected Normal NOT DETECTED The [facility] Comment on above: Performed By: #### C VDAGS #### [facility] [address] [place] [address] Dr. Ashlie Hills SARS-CoV-2 (COVID-19) RNA MADDY+probe Ql (Unsp spec) Not detected Normal NOT DETECTED [facility] Comment on above: Performed By: #### C VDAGS #### [facility] [address] [place] [address] Dr. Ashlie Hills XR CHEST 1 Von [...] by: MARYANNE POWER Date: 2022-12-04 22:23 Normal [facility] BLOOD GASES BTYon 12-04-2022 02 MODE ROOM AIR Normal [facility] Comment on above: Performed By: #### C BC #### [facility] [address] [place] [address] Dr. Ashlie Hills ALLENS TEST Positive [facility] Comment on above: Performed By: #### C BC #### [facility] [address] [place] [address] Dr. Ashlie iHlls Base excess Calc (Bld) [Moles/Vol] 5.4 mmol/L Critically high -2.0-2.0 [facility] Comment on above: Performed By: #### C BC #### [facility] [address] [place] [address] Dr. Ashlie Hills BIPAP PRESSURE Normal [facility] Comment on above: Performed By: #### C BC #### [facility] [address] [place] [address] Dr. Ashlie Hills CPAP [facility] Comment on above: Performed By: #### C BC #### [facility] [address] [place] [address] Dr. Ashlie Hills FIO2 [facility] Comment on above: Performed By: #### C BC #### [facility] [address] [place] [address] Dr. Ashlie Hills HCO3 (Bld) [Moles/Vol] 30.8 mmol/L Critically high 22.0-26 .0 [facility] Comment on above: Performed By: #### C BC #### [facility] [address] [place] [address] Dr. [facility] Comment on above: Performed By: #### C BC #### [facility] [address] [address] [address] Ashlie Hills MINUTE VOLUME Normal [facility] Comment on above: Performed By: #### C BC #### [facility] [address] [place] [address] Dr. Ashlie Hills Oxygen (Bld) [Partial pressure] 46.3 mm[Hg] Critically low 80.0-100.0 [facility] Comment on above: Performed By: #### C BC #### [facility] [address] [place] [address] Dr. Ashlie Hills Oxygen saturation in Blood 83.9 % Critically low 95.0-100.0 [facility] Comment on above: Performed By: #### C BC #### [facility] [address] [place] [address] Dr. Ashlie Hills PCO2 54.2 mmHg Critically high 35.0-45.0 [facility] Comment on above: Performed By: #### C BC #### [facility] [address] [place] [address] Dr. Ashlie Hills PEEP [facility] Comment on above: Performed By: #### C BC #### [facility] [address] [place] [address] Dr. Ashlie Hills pH (Bld) 7.363 [pH] Normal 7.350-7.450 [facility] Comment on above: Performed By: #### C BC #### [facility] [address] [place] [address] Dr. Ashlie Hills PIP [facility] Comment on above: Performed By: #### C BC #### [facility] [address] [place] [address] Dr. Ashlie Hills PS [facility] Comment on above: Performed By: #### C BC #### [facility] [address] [place] [address] Dr. Ashlie Hills PUNCTURE SITE LR [facility] Comment on above: Performed By: #### C BC #### [facility] [address] [place] [address] Dr. Ashlie Hills [facility] Comment on above: Performed By: #### C BC #### [facility] [address] [place] [address] Dr. Ashlie Hills [facility] Comment on above: Performed By: #### C BC #### [facility] [address] [place] [address] Dr. Ashlie Hills [facility] Comment on above: Performed By: #### C BC #### [facility] [address] [place] [address] Dr. Ashlie Hills BNPon 12-04-2022 Natriuretic peptide B (Bld) [Mass/Vol] 76.0 pg/mL Normal <=900.0 [facility] Comment on above: Performed By: #### P OCGLUC #### [facility] [address] [place] [address] Dr. Ashlie Hills CBC AUTO DIFFon 12-04-2022 BASO # 0.1 103/ul Normal 0.0-0.1 [facility] Comment on above: Performed By: #### C BC #### [facility] [address] [place] [address] Dr. Ashlie Hills Basophils/100 WBC (Bld) 0.6 % Normal 0.2-2.0 [facility] Comment on above: Performed By: #### C BC #### [facility] [address] [place] [address] Dr. Ashlie Hills EO # 0.2 103/ul Normal 0.0-0.7 [facility] Comment on above: Performed By: #### C BC #### [facility] [address] [place] [address] Dr. Ashlie Hills Eosinophils/100 WBC (Bld) 1.9 % Normal 0.9-7.0 [facility] Comment on above: Performed By: #### C BC #### [facility] [address] [place] [address] Dr. Ashlie Hills Erythrocyte distribution width (RBC) [Ratio] 15.0 % Normal 11.0-15.0 [facility] Comment on above: Performed By: #### C BC #### [facility] [address] [place] [address] Dr. Ashlie Hills Hematocrit (Bld) [Volume fraction] 49.1 % Critically high 36.0-48.0 [facility] Comment on above: Performed By: #### C BC #### [facility] [address] [place] [address] Dr. Ashlie Hills Hemoglobin (Bld) [Mass/Vol] 15.6 g/dL Normal 12.0-16.0 [facility] Comment on above: Performed By: #### C BC #### [facility] [address] [place] [address] Dr. Ashlie Hills IG # 0.02 10e3/ul Normal 0.00-0.03 [facility] Comment on above: Performed By: #### C BC #### [facility] [address] [place] [address] Dr. Ashlie Hills IG % 0.2 % Normal 0.0-0.5 [facility] Comment on above: Performed By: #### C BC #### [facility] [address] [place] [address] Dr. Ashlie Hills LYMPH # 2.8 103/ul Normal 1.2-3.8 [facility] Comment on above: Performed By: #### C BC #### [facility] [address] [place] [address] Dr. Ashlie Hills Lymphocytes/100 WBC (Bld) 29.9 % Normal 20.5-60.0 [facility] Comment on above: Performed By: #### C BC #### [facility] [address] [place] [address] Dr. Ashlie Hills MANUAL DIFF REQ NO Normal [facility] Comment on above: Performed By: #### C BC #### [facility] [address] [place] [address] Dr. Ashlie Hills MCH (RBC) [Entitic mass] 28.5 pg Normal 26.7-34.0 [facility] Comment on above: Performed By: #### C BC #### [facility] [address] [address] [address] Ashlie Hills MCHC (RBC) [Mass/Vol] 31.8 g/dL Normal 29.9-35.2 [facility] Comment on above: Performed By: #### C BC #### [facility] [address] [address] [address] Ashlie Hills MCV (RBC) [Entitic vol] 89.8 fL Normal 81.0-99.0 [facility] Comment on above: Performed By: #### C BC #### [facility] [address] [address] [address] Ashlie Hills MONO # 1.0 103/ul Critically high 0.3-0.8 [facility] Comment on above: Performed By: #### C BC #### [facility] [address] [address] [address] Ashlie Hills Monocytes/100 WBC (Bld) 10.6 % Normal 1.7-12.0 [facility] Comment on above: Performed By: #### C BC #### [facility] [address] [place] [address] Dr. Ashlie Hills NEUT # 5.3 103/ul Normal 1.4-6.5 [facility] Comment on above: Performed By: #### C BC #### [facility] [address] [address] [address] Ashlie Hills Neutrophils/100 WBC (Bld) 56.8 % Normal 43.0-75.0 [facility] Comment on above: Performed By: #### C BC #### [facility] [address] [address] [address] Ashlie Hills Platelet mean volume (Bld) [Entitic vol] 12.5 fL Normal 9.5-13.5 [facility] Comment on above: Performed By: #### C BC #### [facility] [address] [address] [address] Ashlie Hills PLT 109 103/ul Critically low 150-450 [facility] Comment on above: Performed By: #### C BC #### [facility] [address] [address] [address] Ashlie Hills RBC 5.47 106/ul Critically high 4.20-5.40 [facility] Comment on above: Performed By: #### C BC #### [facility] [address] [place] [address] Dr. Ashlie Hills WBC 9.4 103/ul Normal 4.0-11.0 [facility] Comment on above: Performed By: #### C BC #### [facility] [address] [place] [address] Dr. Ashlie Hills PROF 14(COMP METB)on 023 Albumin [Mass/Vol] 2.9 g/dL Critically low 3.4-5.0 [facility] Comment on above: Performed By: #### C BC #### [facility] [address] [place] [address] Dr. Ashlie Hills Albumin/Globulin [Mass ratio] 0.6 {ratio} Normal [facility] Comment on above: Performed By: #### C BC #### [facility] [address] [place] [address] Dr. Ashlie Hills ALP [Catalytic activity/Vol] 64 U/L Normal 46-116 [facility] Comment on above: Performed By: #### C BC #### [facility] [address] [place] [address] Dr. Ashlie Hills ALT [Catalytic activity/Vol] 16 U/L Normal 14-59 [facility] Comment on above: Performed By: #### C BC #### [facility] [address] [place] [address] Dr. Ashlie Hills Anion gap [Moles/Vol] 9.6 mmol/L Normal [facility] Comment on above: Performed By: #### C BC #### [facility] [address] [place] [address] Dr. Ashlie Hills AST [Catalytic activity/Vol] 16 U/L Normal 15-37 [facility] Comment on above: Performed By: #### C BC #### [facility] [address] [address] [address] Ashlie Hills Bilirubin [Mass/Vol] 0.5 mg/dL Normal 0.2-1.0 [facility] Comment on above: Performed By: #### C BC #### [facility] [address] [address] [address] Ashlie Hills Calcium [Mass/Vol] 8.7 mg/dL Normal 8.5-10.1 [facility] Comment on above: Performed By: #### C BC #### [facility] [address] [address] [address] Ashlie Hills Chloride [Moles/Vol] 103 mmol/L Normal 98-107 [facility] Comment on above: Performed By: #### C BC #### [facility] [address] [place] [address] Dr. Ashlie Hills CO2 [Moles/Vol] 30.7 mmol/L Normal 21.0-32.0 [facility] Comment on above: Performed By: #### C BC #### [facility] [address] [place] [address] Dr. sAhlie Hills Creatinine [Mass/Vol] 0.96 mg/dL Normal 0.55-1.02 [facility] Comment on above: Performed By: #### C BC #### [facility] [address] [place] [address] Dr. Ashlie Hills EGFR-AF GHANAIAN >60 Normal >=60 [facility] Comment on above: Performed By: #### C BC #### [facility] [address] [place] [address] Dr. Ashlie Hills EGFR-NON AF GHANAIAN >60 Normal >=60 [facility] Comment on above: Performed By: #### C BC #### [facility] [address] [place] [address] Dr. Ashlie Hills Globulin (S) [Mass/Vol] 4.7 g/dL Normal [facility] Comment on above: Performed By: #### C BC #### [facility] [address] [place] [address] Dr. Ashlie Hills Glucose [Mass/Vol] 170 mg/dL Critically high 74-106 T [facility] Comment on above: Performed By: #### C BC #### [facility] [address] [address] [address] Ashlie Hills Potassium [Moles/Vol] 4.3 mmol/L Normal 3.5-5.1 [facility] Comment on above: Performed By: #### C BC #### [facility] [address] [address] [address] Ashlie Hills Protein [Mass/Vol] 7.6 g/dL Normal 6.4-8.2 [facility] Comment on above: Performed By: #### C BC #### [facility] [address] [place] [address] Dr. Ashlie Hills Sodium [Moles/Vol] 139 mmol/L Normal 136-145 [facility] Comment on above: Performed By: #### C BC #### [facility] [address] [place] [address] Dr. Ashlie Hills Urea nitrogen [Mass/Vol] 16.0 mg/dL Normal 7.0-18.0 [facility] Comment on above: Performed By: #### C BC #### [facility] [address] [place] [address] Dr. Ashlie Hills Urea nitrogen/Creatinine [Mass ratio] 16.7 mg/mg Normal [facility] Comment on above: Performed By: #### C BC #### [facility] [address] [place] [address] Dr. Ashlie Hills SYMPTOMATIC COVID-19 ANTIGEN on 12-04-2022 EUA Statement SEE BELOW Normal [facility] Comment on above: Result [...] sooner. Performed By: #### C VDAGS #### [facility] [address] [place] [address] Dr. Ashlie Hills SARS-CoV-2 (COVID-19) RNA MADDY+probe Ql (Unsp spec) Negative Normal NEGATIVE [facility] Comment on above: Performed By: #### C VDAGS #### [facility] [address] [place] [address] Dr. Ashlie Hills TROPONIN, HIGH SENSITIVITYon 12-04-2022 HSTROP 8.9 pg/mL Normal 4.0-51.3 [facility] Comment on above: Result Comment: CUT- OFF POINTS HAVE BEEN ESTABLISHED BASED ON THE FOURTH UNIVERSAL DEFINITIONS OF MYOCARDIAL INFARCTION. THE UPPER REFERENCE LIMIT (URL) OF TROPONIN, DEFINED THE 99TH PERCENTILE OF cTnI DISTRIBUTION IN A REFERENCE POPULATION, HAS BEEN CONFIRMED THE DECISION THRESHOLD FOR OK DIAGNOSIS. Performed By: #### P OCGLUC #### [facility] [address] [place] [address] Dr. Ashlie Hills MICROALBUMIN, RAND URon 11-06 mALB 35.8 mg/dL Critically high <=30.0 [facility] Comment on above: Performed By: #### C VDAGS #### [facility] [address] [place], [place] [id number] Dr. Ashlie Hills UA RANDOM W/MICROSCOPICon BACTERIA NONE SEEN Normal NONE SEEN [facility] Comment on above: Performed By: #### C VDAGS #### [facility] [address] [place] [address] Dr. Ashlie Hills Bilirubin Ql (U) Negative Normal NEGATIVE [facility] Comment on above: Performed By: #### C VDAGS #### [facility] [address] [place] [address] Dr. Ashlie Hills CAST SEEN Abnormal NONE SEEN [facility] Comment on above: Performed By: #### C VDAGS #### [facility] [address] [place] [address] Dr. Ashlie Hills Clarity (U) CLEAR Normal CLEAR [facility] Comment on above: Performed By: #### C VDAGS #### [facility] [address] [place] [address] Dr. Ashlie Hills Color (U) YELLOW Normal YELLOW [facility] Comment on above: Performed By: #### C VDAGS #### [facility] [address] [place] [address] Dr. Ashlie Hills Crystals LM Nom (Urine sed) NONE SEEN Normal NONE SEEN [facility] Comment on above: Performed By: #### C VDAGS #### [facility] [address] [place] [address] Dr. Ashlie Hills Epithelial cells LM Ql (Urine sed) MODERATE Abnormal NONE SEEN /RARE [facility] Comment on above: Performed By: #### C VDAGS #### [facility] [address] [place] [address] Dr. Ashlie Hills Glucose Ql (U) Negative Normal NEGATIVE [facility] Comment on above: Performed By: #### C VDAGS #### [facility] [address] [place] [address] Dr. Ashlie Hills Hemoglobin Ql (U) TRACE-INTACT Abnormal NEGATIVE [facility] Comment on above: Performed By: #### C VDAGS #### [facility] [address] [place] [address] Dr. Ashlie Hills Ketones Ql (U) Negative Normal NEGATIVE [facility] Comment on above: Performed By: #### C VDAGS #### [facility] [address] [place] [address] Dr. Ashlie Hills LEUKOCYTES Negative Normal NEGATIVE [facility] Comment on above: Performed By: #### C VDAGS #### [facility] [address] [place] [address] Dr. Ashlie Hills MUCOUS NONE SEEN Normal NONE SEEN [facility] Comment on above: Performed By: #### C VDAGS #### [facility] [address] [place] [address] Dr. Ashlie Hills Nitrite Ql (U) Negative Normal NEGATIVE [facility] Comment on above: Performed By: #### C VDAGS #### [facility] [address] [place] [address] Dr. Ashlie Hills pH (U) 5.0 [pH] Normal 5-9 [facility] Comment on above: Performed By: #### C VDAGS #### [facility] [address] [place] [address] Dr. Ashlie Hills RBC 0-2 Normal 0-2 [facility] Comment on above: Performed By: #### C VDAGS #### [facility] [address] [place] [address] Dr. Ashlie Hills SPEC GRAVITY 1.030 Abnormal 1.005-<=1.025 [facility] Comment on above: Performed By: #### C VDAGS #### [facility] [address] [place] [address] Dr. Ashlie Hills UA PROTEIN 100 mg/dl Abnormal NEGATIVE/ TRACE [facility] Comment on above: Performed By: #### C VDAGS #### [facility] [address] [place] [address] Dr. Ashlie Hills Urobilinogen Qn (U) 0.2 {Little'U}/dL Normal 0.2 - 1. 0 [facility] Comment on above: Performed By: #### C VDAGS #### [facility] [address] [place] [address] Dr. Ashlie Hills WBC NONE SEEN Normal NONE SEEN [facility] Comment on above: Performed By: #### C VDAGS #### [facility] [address] [place] [address] Dr. Ashlie Hills CBC AUTO DIFFon 11-22-2022 BASO # 0.0 103/ul Normal 0.0-0.1 [facility] Comment on above: Performed By: #### C BC #### [facility] [address] [place] [address] Dr. Ashlie Hills Basophils/100 WBC (Bld) 0.3 % Normal 0.2-2.0 [facility] Comment on above: Performed By: #### C BC #### [facility] [address] [place] [address] Dr. Ashlie Hills EO # 0.4 103/ul Normal 0.0-0.7 [facility] Comment on above: Performed By: #### C BC #### [facility] [address] [place] [address] Dr. Ashlie Hills Eosinophils/100 WBC (Bld) 3.0 % Normal 0.9-7.0 [facility] Comment on above: Performed By: #### C BC #### [facility] [address] [place] [address] Dr. Ashlie Hills Erythrocyte distribution width (RBC) [Ratio] 15.3 % Critically high 11.0-15.0 [facility] Comment on above: Performed By: #### C BC #### [facility] [address] [place] [address] Dr. Ashlie Hills Hematocrit (Bld) [Volume fraction] 52.4 % Critically high 36.0-48.0 [facility] Comment on above: Performed By: #### C BC #### [facility] [address] [place] [address] Dr. Ashlie Hills Hemoglobin (Bld) [Mass/Vol] 16.8 g/dL Critically high 12.0-16.0 [facility] Comment on above: Performed By: #### C BC #### [facility] [address] [place] [address] Dr. Ashlie Hills IG # 0.04 10e3/ul Critically high 0.00-0.03 [facility] Comment on above: Performed By: #### C BC #### [facility] [address] [place] [address] Dr. Ashlie Hills IG % 0.3 % Normal 0.0-0.5 [facility] Comment on above: Performed By: #### C BC #### [facility] [address] [place] [address] Dr. Ashlie Hills LYMPH # 4.5 103/ul Critically high 1.2-3.8 [facility] Comment on above: Performed By: #### C BC #### [facility] [address] [place] [address] Dr. Ashlie Hills Lymphocytes/100 WBC (Bld) 33.2 % Normal 20.5-60.0 [facility] Comment on above: Performed By: #### C BC #### [facility] [address] [place] [address] Dr. Ashlie Hills MANUAL DIFF REQ NO Normal [facility] Comment on above: Performed By: #### C BC #### [facility] [address] [place] [address] Dr. Ashlie Hills MCH (RBC) [Entitic mass] 28.0 pg Normal 26.7-34.0 [facility] Comment on above: Performed By: #### C BC #### [facility] [address] [place] [address] Dr. Ashlie Hills MCHC (RBC) [Mass/Vol] 32.1 g/dL Normal 29.9-35.2 [facility] Comment on above: Performed By: #### C BC #### [facility] [address] [place] [address] Dr. Ashlie Hills MCV (RBC) [Entitic vol] 87.3 fL Normal 81.0-99.0 [facility] Comment on above: Performed By: #### C BC #### [facility] [address] [place] [address] Dr. Ashlie Hills MONO # 0.8 103/ul Normal 0.3-0.8 [facility] Comment on above: Performed By: #### C BC #### [facility] [address] [place] [address] Dr. Ashlie Hills Monocytes/100 WBC (Bld) 5.7 % Normal 1.7-12.0 [facility] Comment on above: Performed By: #### C BC #### [facility] [address] [place] [address] Dr. Ashlie Hills NEUT # 7.8 103/ul Critically high 1.4-6.5 [facility] Comment on above: Performed By: #### C BC #### [facility] [address] [place] [address] Dr. Ashlie Hills Neutrophils/100 WBC (Bld) 57.5 % Normal 43.0-75.0 [facility] Comment on above: Performed By: #### C BC #### [facility] [address] [place] [address] Dr. Ashlie Hills Platelet mean volume (Bld) [Entitic vol] 12.0 fL Normal 9.5-13.5 [facility] Comment on above: Performed By: #### C BC #### [facility] [address] [place] [address] Dr. Ashlie Hills PLT 152 103/ul Normal 150-450 [facility] Comment on above: Performed By: #### C BC #### [facility] [address] [place] [address] Dr. Ashlie Hills RBC 6.00 106/ul Critically high 4.20-5.40 [facility] Comment on above: Performed By: #### C BC #### [facility] [address] [place] [address] Dr. Ashlie Hills WBC 13.6 103/ul Critically high 4.0-11.0 [facility] Comment on above: Performed By: #### C BC #### [facility] [address] [place] [address] Dr. Ashlie Hills LIPID PROFILEon 11-22-2022 CHOL-HDL RATIO NORM SEE BELOW Normal [facility] Comment on above: Result Comment: 3.3 - 4.4 LOW RISK 4.4 - 7.1 AVERAGE RISK 7.1 - 11.0 MODERATE RISK >11.0 HIGH RISK Performed By: #### C BC #### [facility] [address] [place] [address] Dr. Ashlie Hills Cholesterol [Mass/Vol] 139 mg/dL Normal <=200 [facility] Comment on above: Performed By: #### C BC #### [facility] [address] [place] [address] Dr. Ashlie Hills Cholesterol in HDL [Mass/Vol] 35 mg/dL Critically low 40-60 [facility] Comment on above: Performed By: #### C BC #### [facility] [address] [address] [address] Ashlie Hills Cholesterol in LDL [Mass/Vol] 67.4 mg/dL Normal [facility] Comment on above: Performed By: #### C BC #### [facility] [address] [address] [address] Ashlie Hills Cholesterol.total/Chol esterol in HDL [Mass ratio] 4.0 {ratio} Normal [facility] Comment on above: Performed By: #### C BC #### [facility] [address] [place] [address] Dr. Ashlie Hills HDL NORMAL > or = 60 mg/dl - LOW CARDIOVASCULAR RISK <40 mg/dl - HIGH CARDIOVASCULAR RISK Normal [facility] Comment on above: Performed By: #### C BC #### [facility] [address] [place] [address] Dr. Ashlie Hills LDL CALC NORMAL SEE BELOW Normal [facility] Comment on above: Result Comment: <100 mg/dl OPTIMAL 100 - 129 mg/dl NEAR OR ABOVE OPTIMAL 130 - 159 mg/dl BORDERLINE HIGH 160 - 189 mg/dl HIGH >190 mg/dl VERY HIGH Performed By: #### C BC #### [facility] [address] [place] [address] Dr. Ashlie Hills Triglyceride [Mass/Vol] 183 mg/dL Critically high <=150 [facility] Comment on above: Performed By: #### C BC #### [facility] [address] [place] [address] Dr. Ashlie Hills VLDL CALC 36.6 mg/dL Normal [facility] Comment on above: Performed By: #### C BC #### [facility] [address] [place] [address] Dr. 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 LOCATION: [facility] BREAST COMPOSITION: Almost entirely [...] Veloz M.D. on 11/22/2022 at 12:09 Normal [facility] PROF 14(COMP METB)on 023 Albumin [Mass/Vol] 3.0 g/dL Critically low 3.4-5.0 [facility] Comment on above: Performed By: #### C BC #### [facility] [address] [place], [place] [address] Dr. Ashlie Hills Albumin/Globulin [Mass ratio] 0.6 {ratio} Normal [facility] Comment on above: Performed By: #### C BC #### [facility] [address] [place], [place] [address] Dr. Ashlie Hills ALP [Catalytic activity/Vol] 68 U/L Normal 46-116 [facility] Comment on above: Performed By: #### C BC #### [facility] [address] [address] [address] Ashlie Hills ALT [Catalytic activity/Vol] 14 U/L Normal 14-59 [facility] Comment on above: Performed By: #### C BC #### [facility] [address] [address] [address] Ashlie Hills Anion gap [Moles/Vol] 12.1 mmol/L Normal [facility] Comment on above: Performed By: #### C BC #### [facility] [address] [address] [address] Ashlie Hills AST [Catalytic activity/Vol] 9 U/L Critically low 15-37 [facility] Comment on above: Performed By: #### C BC #### [facility] [address] [place] [address] Dr. Ashlie Hills Bilirubin [Mass/Vol] 0.4 mg/dL Normal 0.2-1.0 [facility] Comment on above: Performed By: #### C BC #### [facility] [address] [place] [address] Dr. Ashlie Hills Calcium [Mass/Vol] 9.0 mg/dL Normal 8.5-10.1 [facility] Comment on above: Performed By: #### C BC #### [facility] [address] [place] [address] Dr. Ashlie Hills Chloride [Moles/Vol] 105 mmol/L Normal 98-107 [facility] Comment on above: Performed By: #### C BC #### [facility] [address] [place] [address] Dr. Ashlie Hills CO2 [Moles/Vol] 30.7 mmol/L Normal 21.0-32.0 [facility] Comment on above: Performed By: #### C BC #### [facility] [address] [place] [address] Dr. Ashlie Hills Creatinine [Mass/Vol] 0.77 mg/dL Normal 0.55-1.02 [facility] Comment on above: Performed By: #### C BC #### [facility] [address] [address] [address] Ashlie Hills EGFR-AF GHANAIAN >60 Normal >=60 [facility] Comment on above: Performed By: #### C BC #### [facility] [id number] Ashlie Hills EGFR-NON AF GHANAIAN >60 Normal >=60 [facility] Comment on above: Performed By: #### C BC #### [facility] [address] [address] [address] Ashlie Hills Globulin (S) [Mass/Vol] 4.8 g/dL Normal [facility] Comment on above: Performed By: #### C BC #### [facility] [address] [address] [address] Ashlie Hills Glucose [Mass/Vol] 162 mg/dL Critically high 74-106 [facility] Comment on above: Performed By: #### C BC #### [facility] [address] [place] [address] Dr. Ashlie Hills Potassium [Moles/Vol] 3.8 mmol/L Normal 3.5-5.1 [facility] Comment on above: Performed By: #### C BC #### [facility] [address] [place] [address] Dr. Ashlie Hills Protein [Mass/Vol] 7.8 g/dL Normal 6.4-8.2 [facility] Comment on above: Performed By: #### C BC #### [facility] [address] [address] [address] Ashlie Hills Sodium [Moles/Vol] 144 mmol/L Normal 136-145 [facility] Comment on above: Performed By: #### C BC #### [facility] [address] [place] [address] Dr. Ashlie Hills Urea nitrogen [Mass/Vol] 24.0 mg/dL Critically high 7.0-18.0 [facility] Comment on above: Performed By: #### C BC #### [facility] [address] [place] [address] Dr. Ashlie Hills Urea nitrogen/Creatinine [Mass ratio] 31.2 mg/mg Normal [facility] Comment on above: Performed By: #### C BC #### [facility] [address] [place] [address] Dr. Ashlie Hills CBC AUTO DIFFon 10-05-2022 BASO # 0.1 103/ul Normal 0.0-0.1 [facility] Comment on above: Performed By: #### C BC #### [facility] [address] [place] [address] Dr. Ashlie Hills Basophils/100 WBC (Bld) 0.6 % Normal 0.2-2.0 [facility] Comment on above: Performed By: #### C BC #### [facility] [address] [place] [address] Dr. Ashlie Hills EO # 0.3 103/ul Normal 0.0-0.7 [facility] Comment on above: Performed By: #### C BC #### [facility] [address] [place] [address] Dr. Ashlie Hills Eosinophils/100 WBC (Bld) 2.1 % Normal 0.9-7.0 [facility] Comment on above: Performed By: #### C BC #### [facility] [address] [place] [address] Dr. Ashlie Hills Erythrocyte distribution width (RBC) [Ratio] 15.9 % Critically high 11.0-15.0 [facility] Comment on above: Performed By: #### C BC #### [facility] [address] [place] [address] Dr. Ashlie Hills Hematocrit (Bld) [Volume fraction] 51.8 % Critically high 36.0-48.0 [facility] Comment on above: Performed By: #### C BC #### [facility] [address] [place] [address] Dr. Ashlie Hills Hemoglobin (Bld) [Mass/Vol] 16.6 g/dL Critically high 12.0-16.0 [facility] Comment on above: Performed By: #### C BC #### [facility] [address] [place] [address] Dr. Ashlie Hills IG # 0.03 10e3/ul Normal 0.00-0.03 [facility] Comment on above: Performed By: #### C BC #### [facility] [address] [place] [address] Dr. Ashlie Hills IG % 0.2 % Normal 0.0-0.5 [facility] Comment on above: Performed By: #### C BC #### [facility] [address] [place] [address] Dr. Ashlie Hills LYMPH # 3.9 103/ul Critically high 1.2-3.8 [facility] Comment on above: Performed By: #### C BC #### [facility] [address] [place] [address] Dr. Ashlie Hills Lymphocytes/100 WBC (Bld) 31.7 % Normal 20.5-60.0 [facility] Comment on above: Performed By: #### C BC #### [facility] [address] [place] [address] Dr. Ashlie Hills MANUAL DIFF REQ NO Normal [facility] Comment on above: Performed By: #### C BC #### [facility] [address] [place] [address] Dr. Ashlie Hills MCH (RBC) [Entitic mass] 27.9 pg Normal 26.7-34.0 [facility] Comment on above: Performed By: #### C BC #### [facility] [address] [place] [address] Dr. Ashlie Hills MCHC (RBC) [Mass/Vol] 32.0 g/dL Normal 29.9-35.2 [facility] Comment on above: Performed By: #### C BC #### [facility] [address] [place] [address] Dr. Ashlie Hills MCV (RBC) [Entitic vol] 87.1 fL Normal 81.0-99.0 [facility] Comment on above: Performed By: #### C BC #### [facility] [address] [place] [address] Dr. Ashlie Hills MONO # 0.7 103/ul Normal 0.3-0.8 [facility] Comment on above: Performed By: #### C BC #### [facility] [address] [place] [address] Dr. Ashlie Hills Monocytes/100 WBC (Bld) 5.8 % Normal 1.7-12.0 [facility] Comment on above: Performed By: #### C BC #### [facility] [address] [place] [address] Dr. Ashlie Hills NEUT # 7.3 103/ul Critically high 1.4-6.5 [facility] Comment on above: Performed By: #### C BC #### [facility] [address] [place] [address] Dr. Ashlie Hills Neutrophils/100 WBC (Bld) 59.6 % Normal 43.0-75.0 [facility] Comment on above: Performed By: #### C BC #### [facility] [address] [place] [address] Dr. Ashlie Hills Platelet mean volume (Bld) [Entitic vol] 11.7 fL Normal 9.5-13.5 [facility] Comment on above: Performed By: #### C BC #### [facility] [address] [place] [address] Dr. Ashlie Hills PLT 117 103/ul Critically low 150-450 [facility] Comment on above: Performed By: #### C BC #### [facility] [address] [place] [address] Dr. Ashlie Hills RBC 5.95 106/ul Critically high 4.20-5.40 [facility] Comment on above: Performed By: #### C BC #### [facility] [address] [place] [address] Dr. Ashlie Hills WBC 12.3 103/ul Critically high 4.0-11.0 [facility] Comment on above: Performed By: #### C BC #### [facility] [address] [place] [address] ABD/PELV W CONon [...] RICCO PICKARD Date: 2022-10-05 13:13 Normal [facility] ER URINE PROFILEon 3 Bilirubin Ql (U) Negative Normal NEGATIVE [facility] Comment on above: Performed By: #### P OCGLUC #### [facility] [address] [place] [address] Dr. Ashlie Hills Clarity (U) CLEAR Normal CLEAR [facility] Comment on above: Performed By: #### P OCGLUC #### [facility] [address] [place] [address] Dr. Ashlie Hills Color (U) YELLOW Normal YELLOW [facility] Comment on above: Performed By: #### P OCGLUC #### [facility] [address] [place] [address] Dr. Ashlie Hills ERUADE A micrscopic examination will be performed if indicated. Normal [facility] Comment on above: Performed By: #### P OCGLUC #### [facility] [address] [place] [address] Dr. Ashlie Hills Glucose Ql (U) Negative Normal NEGATIVE [facility] Comment on above: Performed By: #### P OCGLUC #### [facility] [address] [address] [address] Ashlie Hills Hemoglobin Ql (U) Negative Normal NEGATIVE [facility] Comment on above: Performed By: #### P OCGLUC #### [facility] [address] [address] [address] Ashlie Hills Ketones Ql (U) Negative Normal NEGATIVE [facility] Comment on above: Performed By: #### P OCGLUC #### [facility] [address] [address] [address] Ashlie Hills LEUKOCYTES Negative Normal NEGATIVE [facility] Comment on above: Performed By: #### P OCGLUC #### [facility] [address] [place] [address] Dr. Ashlie Hills Nitrite Ql (U) Negative Normal NEGATIVE [facility] Comment on above: Performed By: #### P OCGLUC #### [facility] [address] [place] [address] Dr. Ashlie Hills pH (U) 6.0 [pH] Normal 5-9 [facility] Comment on above: Performed By: #### P OCGLUC #### [facility] [address] [address] [address] Ashlie Hills Protein (U) [Mass/Vol] 100 mg/dL Abnormal NEGAT YURY/ TRACE [facility] Comment on above: Performed By: #### P OCGLUC #### [facility] [address] [address] [address] Ashlie Hills SPEC GRAVITY 1.010 Normal 1.005-<=1.025 [facility] Comment on above: Performed By: #### P OCGLUC #### [facility] [address] [place] [address] Dr. Ashlie Hills UR MICRO IND INDICATED Normal [facility] Comment on above: Performed By: #### P OCGLUC #### [facility] [address] [place] [address] Dr. Ashlie Hills Urobilinogen Qn (U) 1.0 {Little'U}/dL Normal 0.2 - 1. 0 [facility] Comment on above: Performed By: #### P OCGLUC #### [facility] [address] [place] [address] Dr. Ashlie Hills LIPASEon 10-05-2022 Lipase [Catalytic activity/Vol] 1771.0 U/L Critically high 73.0-393.0 [facility] Comment on above: Performed By: #### C BC #### [facility] [address] [place] [address] Dr. Ashlie Hills PREG HCG QUALon 10-05-2022 , QUAL Negative Normal NEGATIVE [facility] Comment on above: Performed By: #### P OCGLUC #### [facility] [address] [place] [address] Dr. Ashlie Hills PROF 14(COMP METB)on 023 Albumin [Mass/Vol] 3.2 g/dL Critically low 3.4-5.0 [facility] Comment on above: Performed By: #### C BC #### [facility] [address] [place] [address] Dr. Ashlie Hills Albumin/Globulin [Mass ratio] 0.7 {ratio} Normal [facility] Comment on above: Performed By: #### C BC #### [facility] [address] [place] [address] Dr. Ashlie Hills ALP [Catalytic activity/Vol] 70 U/L Normal 46-116 [facility] Comment on above: Performed By: #### C BC #### [facility] [address] [place] [address] Dr. Ashlie Hills ALT [Catalytic activity/Vol] 11 U/L Critically low 14-59 [facility] Comment on above: Performed By: #### C BC #### [facility] [address] [place] [address] Dr. Ashlie Hills Anion gap [Moles/Vol] 10.3 mmol/L Normal [facility] Comment on above: Performed By: #### C BC #### [facility] [address] [place] [address] Dr. Ashlie Hills AST [Catalytic activity/Vol] 11 U/L Critically low 15-37 [facility] Comment on above: Performed By: #### C BC #### [facility] [address] [address] [address] Ashlie Hills Bilirubin [Mass/Vol] 0.9 mg/dL Normal 0.2-1.0 [facility] Comment on above: Performed By: #### C BC #### [facility] [address] [address] [address] Ashlie Hills Calcium [Mass/Vol] 9.3 mg/dL Normal 8.5-10.1 [facility] Comment on above: Performed By: #### C BC #### [facility] [address] [address] [address] Ashlie Hills Chloride [Moles/Vol] 105 mmol/L Normal 98-107 [facility] Comment on above: Performed By: #### C BC #### [facility] [address] [address] [address] Ashlie Hills CO2 [Moles/Vol] 30.6 mmol/L Normal 21.0-32.0 [facility] Comment on above: Performed By: #### C BC #### [facility] [address] [address] [address] Ashlie Hills Creatinine [Mass/Vol] 0.62 mg/dL Normal 0.55-1.02 [facility] Comment on above: Performed By: #### C BC #### [facility] [address] [address] [address] Ashlie Hills EGFR-AF GHANAIAN >60 Normal >=60 [facility] Comment on above: Performed By: #### C BC #### [facility] [address] [place] [address] Dr. Ashlie Hills EGFR-NON AF GHANAIAN >60 Normal >=60 [facility] Comment on above: Performed By: #### C BC #### [facility] [address] [address] [address] Ashlie Hills Globulin (S) [Mass/Vol] 4.6 g/dL Normal [facility] Comment on above: Performed By: #### C BC #### [facility] [address] [address] [address] Ashlie Hills Glucose [Mass/Vol] 85 mg/dL Normal 74-106 [facility] Comment on above: Performed By: #### C BC #### [facility] [address] [address] [address] Ashlie Hills Potassium [Moles/Vol] 3.9 mmol/L Normal 3.5-5.1 [facility] Comment on above: Performed By: #### C BC #### [facility] [address] [address] [address] Ashlie Hills Protein [Mass/Vol] 7.8 g/dL Normal 6.4-8.2 [facility] Comment on above: Performed By: #### C BC #### [facility] [address] [address] [address] Ashlie Hills Sodium [Moles/Vol] 142 mmol/L Normal 136-145 [facility] Comment on above: Performed By: #### C BC #### [facility] [address] [address] [address] Ashlie Hills Urea nitrogen [Mass/Vol] 12.0 mg/dL Normal 7.0-18.0 [facility] Comment on above: Performed By: #### C BC #### [facility] [address] [address] [address] Ashlie Hills Urea nitrogen/Creatinine [Mass ratio] 19.4 mg/mg Normal [facility] Comment on above: Performed By: #### C BC #### [facility] [address] [address] [address] Ashlie Hills URINE MICROSCOPIC ONLYon BACTERIA TRACE Abnormal NONE SEEN [facility] Comment on above: Performed By: #### P OCGLUC #### [facility] [address] [address] [address] Ashlie Hills Bacteria identified Cx Nom (U) NOT INDICATED Normal [facility] Comment on above: Performed By: #### P OCGLUC #### [facility] [address] [place] [address] Dr. Ashlie Hills CAST NONE SEEN Normal NONE SEEN [facility] Comment on above: Performed By: #### P OCGLUC #### [facility] [address] [place] [address] Dr. Ashlie Hills Crystals LM Nom (Urine sed) NONE SEEN Normal NONE SEEN [facility] Comment on above: Performed By: #### P OCGLUC #### [facility] [address] [place] [address] Dr. Ashlie Hills Epithelial cells LM Ql (Urine sed) MODERATE Abnormal NONE SEEN /RARE [facility] Comment on above: Performed By: #### P OCGLUC #### [facility] [address] [place] [address] Dr. Ashlie Hills MUCOUS NONE SEEN Normal NONE SEEN [facility] Comment on above: Performed By: #### P OCGLUC #### [facility] [address] [place] [address] Dr. Ashlie Hills RBC 0-2 Normal 0-2 [facility] Comment on above: Performed By: #### P OCGLUC #### [facility] [address] [place] [address] Dr. Ashlie Hills WBC 0-2 Abnormal NONE SEEN [facility] Comment on above: Performed By: #### P OCGLUC #### [facility] [address] [place] [address] Dr. Ashlie Hills [facility]06 SARS-CoV-2 (COVID-19) RNA MADDY+probe Ql (Unsp spec) Detected Abnormal NOT DETECTED [facility] Comment on above: Result Comment: This test is not yet approved or cleared by the [place] FDA. When there are no FDA-approved or cleared tests available, and other criteria are met, FDA can make tests available under an emergency access mechanism called an Emergency Use Authorization (EUA). The EUA for this test is supported by the Transportation Mechanic of Health and Human Service's declaration that [...] used). Performed By: #### C VDAGS #### [facility] [address] [place] [address] Dr. Ashlie Hills INFLUENZA A AND B AGon 09-21 [facility] SEE BELOW Normal [facility] Comment on above: Result Comment: Nega tive for Flu A protein angiten. Infection due to Flu A cannot be ruled out. Flu A angiten in the sample may be below the detection limit of the test. Performed By: #### I NFLUAB #### [facility] [address] [place] [address] Dr. Ashlie Hills [facility] Normal [facility] Comment on above: Result Comment: Nega tive for Flu B protein antigen. Infection due to Flu B cannot be ruled out. Flu B antigen in the sample may be below the detection limit of the test. Performed By: #### I NFLUAB #### [facility] [address] [place] [address] Dr. Ashlie Hills INFLUENZA A AG Negative Normal NEGATIVE SEE COMMENT [facility] Comment on above: Performed By: #### I NFLUAB #### [facility] [address] [place] [address] Dr. Ashlie Hills INFLUENZA B AG Negative Normal NEGATIVE SEE COMMENT [facility] Comment on above: Performed By: #### I NFLUAB #### [facility] [address] [place] [address] ABD/PELV W CONon [...] to at least 10/21/2018, unchanged. https://www.ncbi.nlm .nih.gov/pmc/article s/[id number]/ Electronically authenticated by: COLLIN HUERTAS Date: 2022-07-27 14:56 Normal [facility] CREATININEon 07-18-2022 Creatinine [Mass/Vol] 0.81 mg/dL Normal 0.55-1.02 [facility] Comment on above: Performed By: #### C BC #### [facility] [address] [place] [address] Dr. Ashlie Hills EGFR-AF GHANAIAN >60 Normal >=60 [facility] Comment on above: Performed By: #### C BC #### [facility] [address] [place] [address] Dr. Ashlie Hills EGFR-NON AF GHANAIAN >60 Normal >=60 [facility] Comment on above: Performed By: #### C BC #### [facility] [address] [place] [address] LOW EXT W [...] PATRICIA VELOZ Date: 2022-07-18 14:58 Normal [facility] XR KNEE LT 1_2 [...] HATTIE BAUTISTA Date: 2022-07-18 12:00 Normal [facility] Covid-19 PCR ([facility])on 06-09 SARS-CoV-2 (COVID-19) RNA MADDY+probe Ql (Unsp spec) Not detected Normal NOT DETECTED [facility] Comment on above: Result Comment: This test is not yet approved or cleared by the [place] FDA. When there are no FDA-approved or cleared tests available, and other criteria are met, FDA can make tests available under an emergency access mechanism called an Emergency Use Authorization (EUA). The EUA for this test is supported by the Transportation Mechanic of Health and Human Service's (HHS's) declaration [...] SARS-CoV-2. Performed By: #### C BC #### [facility] [address] [place] [address] Dr. Ashlie Hills INFLUENZA A AND B AGon 07-06 [facility] SEE BELOW Normal [facility] Comment on above: Result Comment: Nega tive for Flu A protein angiten. Infection due to Flu A cannot be ruled out. Flu A angiten in the sample may be below the detection limit of the test. Performed By: #### C BC #### [facility] [address] [place] [address] Dr. Ashlie Hills INFLUBNEGH SEE BELOW Normal [facility] Comment on above: Result Comment: Nega tive for Flu B protein antigen. Infection due to Flu B cannot be ruled out. Flu B antigen in the sample may be below the detection limit of the test. Performed By: #### C BC #### [facility] [address] [place] [address] Dr. Ashlie Hills INFLUENZA A AG Negative Normal NEGATIVE SEE COMMENT [facility] Comment on above: Performed By: #### C BC #### [facility] [address] [place] [address] Dr. Ashlie Hills INFLUENZA B AG Negative Normal NEGATIVE SEE COMMENT [facility] Comment on above: Performed By: #### C BC #### [facility] [address] [place] [address] Dr. Ashlie Hills POINT OF CARE GLUCOSEon 04-08 Glucose [Mass/Vol] 108 mg/dL Critically high 74-106 [facility] Comment on above: Performed By: #### C BC #### [facility] [address] [place] [address] Dr. Ashlie iHlls RAGHU by IFAon 03-07-2022 Antinuclear Antibodies, IFA Negative Normal [facility] Comment on above: Result Comment: Nega tive <1:80 Borderline 1:80 Positive >1:80 ICAP nomenclature: AC-0 For more information about Hep-2 cell patterns use ANApatterns.org, the official website for the International Consensus on Antinuclear Antibody (RAGHU) Patterns (ICAP). Performed By: #### A NAIFA #### [facility] [address] [place] [address] Dr. Ashlie Hills IMMUNOFIXATION (TREVON), URINEo n 03-07-2022 TREVON Interpretation:U Comment Normal [facility] Comment on above: Result Comment: No m onoclonality detected. Performed By: #### C BC #### [facility] [address] [place] [address] Dr. Ashlie Hills IMMUNOFIXATION(TREVON),PROTEIN ELEC(PE),FREon 03-07-2022 Albumin [Mass/Vol] 3.0 g/dL Normal 2.9-4.4 [facility] Comment on above: Performed By: #### I NFLUAB #### [facility] [address] [place] [address] Dr. Ashlie Hills Albumin/Globulin [Mass ratio] 0.8 {ratio} Normal 0.7-1.7 [facility] Comment on above: Performed By: #### I NFLUAB #### [facility] [address] [place] [address] Dr. Ashlie Hills Aswuc-8-Nxzgxhsx 0.3 g/dL Normal 0.0-0.4 [facility] Comment on above: Performed By: #### I NFLUAB #### [facility] [address] [place] [address] Dr. Ashlie Hills Hvrny-0-Yrmerrnf 1.0 g/dL Normal 0.4-1.0 [facility] Comment on above: Performed By: #### I NFLUAB #### [facility] [address] [place] [address] Dr. Ashlie Hills Beta Globulin 1.8 g/dL Critically high 0.7-1.3 [facility] Comment on above: Performed By: #### I NFLUAB #### [facility] [address] [place] [address] Dr. Ashlie Hills Free [place] Lt Chains,S 45.2 mg/L Critically high 3.3-19.4 [facility] Comment on above: Performed By: #### I NFLUAB #### [facility] [address] [place] [address] Dr. Ashlie Hills Free Lambda Lt Chains,S 40.3 mg/L Critically high 5.7-26.3 [facility] Comment on above: Performed By: #### I NFLUAB #### [facility] [address] [place] [address] Dr. Ashlie Hills Gamma Globulin 0.8 g/dL Normal 0.4-1.8 [facility] Comment on above: Performed By: #### I NFLUAB #### [facility] [address] [place] [address] Dr. Ashlie Hills Globulin (S) [Mass/Vol] 3.9 g/dL Normal 2.2-3.9 [facility] Comment on above: Performed By: #### I NFLUAB #### [facility] [address] [place] [address] Dr. Ashlie Hills Immunofixation Result, Serum Comment Normal [facility] Comment on above: Result Comment: No m onoclonality detected. Performed By: #### I NFLUAB #### [facility] [address] [place] [address] Dr. Ashlie Hills Immunoglobulin A, Qn, Serum 776 mg/dL Critically high 87-352 [facility] Comment on above: Performed By: #### I NFLUAB #### [facility] [address] [place] [address] Dr. Ashlie Hills Immunoglobulin G, Qn, Serum 955 mg/dL Normal 586-1602 [facility] Comment on above: Performed By: #### I NFLUAB #### [facility] [address] [place] [address] Dr. Ashlie Hills Immunoglobulin M, Qn, Serum 39 mg/dL Normal 26-217 [facility] Comment on above: Performed By: #### I NFLUAB #### [facility] [address] [place] [address] Dr. Ashlie Hills [place]/Lambda Ratio, S 1.12 Normal 0.26-1.65 [facility] Comment on above: Performed By: #### I NFLUAB #### [facility] [address] [place] [address] Dr. Ashlie Hills M-Bright Not Observed Normal Not Observed [facility] Comment on above: Performed By: #### I NFLUAB #### [facility] [address] [place] [address] Dr. Ashlie Hills PDF . Normal [facility] Comment on above: Performed By: #### I NFLUAB #### [facility] [address] [place] [address] Dr. Ashlie Hills Please note: Comment Normal [facility] Comment on above: Result Comment: Prot ein electrophoresis scan will follow via computer, mail, or education and training manager delivery. Performed By: #### I NFLUAB #### [facility] [address] [place] [address] Dr. Ashlie Hills Protein [Mass/Vol] 6.9 g/dL Normal 6.0-8.5 [facility] Comment on above: Performed By: #### I NFLUAB #### [facility] [address] [place] [address] Dr. Ashlie Hills C-PEPTIDE, SERUMon 2 C-Peptide, Serum 3.1 ng/mL Normal 1.1-4.4 [facility] Comment on above: Result Comment: C-Pe ptide reference interval is for fasting patients. Performed By: #### C PEPT #### [facility] [address] [place] [address] Dr. Ashlie Hills HEP B SURFACE ANTIGEN SCREEN on 03-04-2022 HBsAg Screen Negative Normal Negative [facility] Comment on above: Performed By: #### C BC #### [facility] [address] [place] [address] Dr. Ashlie Hills HEPATITIS C VIRUS AB W/ REFL EX QUANTon 03-04-2022 HCV AB <0.1 Normal 0.0-0.9 [facility] Comment on above: Performed By: #### I NFLUAB #### [facility] [address] [place] [address] Dr. Ashlie Hills Interpretation: Comment Normal [facility] Comment on above: Result Comment: Nega tive Not infected with HCV, unless recent infection is suspected or other evidence exists to indicate HCV infection. Performed By: #### I NFLUAB #### [facility] [address] [address] [address] Ashlie Hills MICROALBUMIN/ CREATININE RAT IOon 03-04-2022 Albumin, Urine 367.4 ug/mL Normal Not Estab. [facility] Comment on above: Performed By: #### C BC #### [facility] [address] [address] [address] Ashlie Hills Albumin/ Creatinine Ratio 239 mg/g creat Critically high 0-29 [facility] Comment on above: Result Comment: Norm al: 0 - 29 Moderately increased: 30 - 300 Severely increased: >300 Performed By: #### C BC #### [facility] [address] [address] [address] Ashlie Hills Creatinine, Urine 153.9 mg/dL Normal Not Estab. [facility] Comment on above: Performed By: #### C BC #### [facility] [address] [address] [address] Ashlie Hills VIT D 25-OH LABCORPon 2021 Vitamin D, 25-Hydroxy <4.0 Critically low 30.0-100.0 [facility] Comment on above: Result Comment: Graciela min D deficiency has been defined by the [place] of Medicine and an Endocrine Society practice guideline as a level of serum 25-OH vitamin D less than 20 ng/mL (1,2). The Endocrine Society went on to further define vitamin D insufficiency as a level between 21 and 29 ng/mL (2). 1. IOM ([place]amar of Medicine). 2010. Dietary reference intakes for calcium and D. [place]: The National Academies Press. 2. Lynda MF, Keely [place], Leandra LOPEZ, et al. Evaluation, treatment, and prevention of vitamin D deficiency: an Endocrine Society clinical practice guideline. JCEM. 2010; 96(7):1911-30. Performed By: #### C BC #### [facility] [address] [address] [address] Ashlie Hills GLYCOHEMOGLOBIN A1Con 2021 ADA RECOMMENDATION SEE BELOW Normal [facility] Comment on above: Result Comment: ADA RECOMMENDED LIMIT 4.0 - 6.0 ADA THERAPEUTIC TARGET < 7.0 ACTION SUGGESTED > 7.0 Performed By: #### C VDAGS #### [facility] [address] [place] [address] Dr. Ashlie Hills Glucose [Mass/Vol] 295 mg/dL Normal [facility] Comment on above: Performed By: #### C VDAGS #### [facility] [address] [place] [address] Dr. Ashlie Hills HbA1c (Bld) [Mass fraction] 11.9 % Critically high 4.5-6.2 [facility] Comment on above: Performed By: #### C VDAGS #### [facility] [address] [place] [address] Dr. Ashlie Hills HEMOGRAM AND PLATELon 2021 Hematocrit (Bld) [Volume fraction] 56.3 % Critically high 36.0-48.0 [facility] Comment on above: Performed By: #### C VDAGS #### [facility] [address] [place] [address] Dr. Ashlie Hills Hemoglobin (Bld) [Mass/Vol] 18.0 g/dL Critically high 12.0-16.0 [facility] Comment on above: Performed By: #### C VDAGS #### [facility] [address] [place] [address] Dr. Ashlie Hills MCH (RBC) [Entitic mass] 29.5 pg Normal 26.7-34.0 [facility] Comment on above: Performed By: #### C VDAGS #### [facility] [address] [place] [address] Dr. Ashlie Hills MCHC (RBC) [Mass/Vol] 32.0 g/dL Normal 29.9-35.2 [facility] Comment on above: Performed By: #### C VDAGS #### [facility] [address] [place] [address] Dr. Ashlie Hills MCV (RBC) [Entitic vol] 92.1 fL Normal 81.0-99.0 [facility] Comment on above: Performed By: #### C VDAGS #### [facility] [address] [address] [address] Ashlie Hills PLT 123 103/ul Critically low 150-450 [facility] Comment on above: Performed By: #### C VDAGS #### [facility] [address] [address] [address] Ashlie Hills RBC 6.11 106/ul Critically high 4.20-5.40 [facility] Comment on above: Performed By: #### C VDAGS #### [facility] [address] [place] [address] Dr. Ashlie Hills WBC 16.4 103/ul Critically high 4.0-11.0 [facility] Comment on above: Performed By: #### C VDAGS #### [facility] [address] [place] [address] Dr. Ashlie Hills LIPID PROFILEon 03-03-2022 CHOL-HDL RATIO NORM SEE BELOW Normal [facility] Comment on above: Result Comment: 3.3 - 4.4 LOW RISK 4.4 - 7.1 AVERAGE RISK 7.1 - 11.0 MODERATE RISK >11.0 HIGH RISK Performed By: #### C VDAGS #### [facility] [address] [place] [address] Dr. Ashlie Hills Cholesterol [Mass/Vol] 159 mg/dL Normal <=200 [facility] Comment on above: Performed By: #### C VDAGS #### [facility] [address] [place] [address] Dr. Ashlie Hills Cholesterol in HDL [Mass/Vol] 40 mg/dL Normal 40-60 [facility] Comment on above: Performed By: #### C VDAGS #### [facility] [address] [place] [address] Dr. Ashlie Hills Cholesterol in LDL [Mass/Vol] 81.8 mg/dL Normal [facility] Comment on above: Performed By: #### C VDAGS #### [facility] [address] [place] [address] Dr. Ashlie Hills Cholesterol.total/Chol esterol in HDL [Mass ratio] 4.0 {ratio} Normal [facility] Comment on above: Performed By: #### C VDAGS #### [facility] [address] [address] [address] Ashlie Hills HDL NORMAL > or = 60 mg/dl - LOW CARDIOVASCULAR RISK <40 mg/dl - HIGH CARDIOVASCULAR RISK Normal [facility] Comment on above: Performed By: #### C VDAGS #### [facility] [address] [address] [address] Ashlie Hills LDL CALC NORMAL SEE BELOW Normal [facility] Comment on above: Result Comment: <100 mg/dl OPTIMAL 100 - 129 mg/dl NEAR OR ABOVE OPTIMAL 130 - 159 mg/dl BORDERLINE HIGH 160 - 189 mg/dl HIGH >190 mg/dl VERY HIGH Performed By: #### C VDAGS #### [facility] [address] [address] [address] Ashlie Hills Triglyceride [Mass/Vol] 186 mg/dL Critically high <=150 [facility] Comment on above: Performed By: #### C VDAGS #### [facility] [address] [address] [address] Ashlie Hills VLDL CALC 37.2 mg/dL Normal [facility] Comment on above: Performed By: #### C VDAGS #### [facility] [address] [address] [address] Ashlie Hills RENAL FUNCTION PANELon 03-03 Albumin [Mass/Vol] 3.1 g/dL Critically low 3.4-5.0 [facility] Comment on above: Performed By: #### C BC #### [facility] [address] [address] [address] Ashlie Hills Calcium [Mass/Vol] 9.2 mg/dL Normal 8.5-10.1 [facility] Comment on above: Performed By: #### C BC #### [facility] [address] [address] [address] Ashlie Hills Chloride [Moles/Vol] 102 mmol/L Normal 98-107 [facility] Comment on above: Performed By: #### C BC #### [facility] [address] [address] [address] Ashlie Hills CO2 [Moles/Vol] 31.9 mmol/L Normal 21.0-32.0 [facility] Comment on above: Performed By: #### C BC #### [facility] [address] [address] [address] Ashlie Hills Creatinine [Mass/Vol] 0.68 mg/dL Normal 0.55-1.02 [facility] Comment on above: Performed By: #### C BC #### [facility] [address] [address] [address] Ashlie Hills EGFR-AF GHANAIAN >60 Normal >=60 [facility] Comment on above: Performed By: #### C BC #### [facility] [address] [place] [address] Dr. Ashlie Hills EGFR-NON AF GHANAIAN >60 Normal >=60 [facility] Comment on above: Performed By: #### C BC #### [facility] [address] [place] [address] Dr. Ashlie Hills Glucose [Mass/Vol] 131 mg/dL Critically high 74-106 [facility] Comment on above: Performed By: #### C BC #### [facility] [address] [place] [address] Dr. Ashlie Hills Phosphate [Mass/Vol] 4.0 mg/dL Normal 2.6-4.7 [facility] Comment on above: Performed By: #### C BC #### [facility] [facility] [address] [place] [address] Dr. Ashlie Hills Potassium [Moles/Vol] 4.0 mmol/L Normal 3.5-5.1 [facility] Comment on above: Performed By: #### C BC #### [facility] [address] [place] [address] Dr. Ashlie Hills Sodium [Moles/Vol] 141 mmol/L Normal 136-145 [facility] Comment on above: Performed By: #### C BC #### [facility] [address] [address] [address] Ashlie Hills Urea nitrogen [Mass/Vol] 17.0 mg/dL Normal 7.0-18.0 [facility] Comment on above: Performed By: #### C BC #### [facility] [address] [place] [address] Dr. Ashlie Hills UA RANDOM W/MICROSCOPICon BACTERIA NONE SEEN Normal NONE SEEN [facility] Comment on above: Performed By: #### I NFLUAB #### [facility] [address] [place] [address] Dr. Ashlie Hills Bilirubin Ql (U) Negative Normal NEGATIVE The [facility] Comment on above: Performed By: #### I NFLUAB #### [facility] [address] [place] [address] Dr. Ashlie Hills CAST NONE SEEN Normal NONE SEEN [facility] Comment on above: Performed By: #### I NFLUAB #### [facility] [address] [place] [address] Dr. Ashlie Hills Clarity (U) CLEAR Normal CLEAR [facility] Comment on above: Performed By: #### I NFLUAB #### [facility] [address] [place] [address] Dr. Ashlie Hills Color (U) YELLOW Normal YELLOW [facility] Comment on above: Performed By: #### I NFLUAB #### [facility] [address] [place] [address] Dr. Ashlie Hills Crystals LM Nom (Urine sed) NONE SEEN Normal NONE SEEN [facility] Comment on above: Performed By: #### I NFLUAB #### [facility] [address] [place] [address] Dr. Ashlie Hills Epithelial cells LM Ql (Urine sed) FEW Abnormal NONE SEEN /RARE The [facility] Comment on above: Performed By: #### I NFLUAB #### [facility] [address] [place] [address] Dr. Ashlie Hills Glucose Ql (U) Negative Normal NEGATIVE The [facility] Comment on above: Performed By: #### I NFLUAB #### [facility] [address] [address] [address] Ashlie Hills Hemoglobin Ql (U) Negative Normal NEGATIVE The [facility] Comment on above: Performed By: #### I NFLUAB #### [facility] [address] [address] [address] Ashlie Hills Ketones Ql (U) Negative Normal NEGATIVE The [facility] Comment on above: Performed By: #### I NFLUAB #### [facility] [address] [address] [address] Ashlie Hills LEUKOCYTES Negative Normal NEGATIVE [facility] Comment on above: Performed By: #### I NFLUAB #### [facility] [address] [place] [address] Dr. Ashlie Hills MUCOUS NONE SEEN Normal NONE SEEN The [facility] Comment on above: Performed By: #### I NFLUAB #### [facility] [address] [place] [address] Dr. Ashlie Hills Nitrite Ql (U) Negative Normal NEGATIVE The [facility] Comment on above: Performed By: #### I NFLUAB #### [facility] [address] [place] [address] Dr. Ashlie Hills pH (U) 5.5 [pH] Normal 5-9 [facility] Comment on above: Performed By: #### I NFLUAB #### [facility] [address] [place] [address] Dr. Ashlie Hills RBC 0-2 Normal 0-2 [facility] Comment on above: Performed By: #### I NFLUAB #### [facility] [address] [place] [address] Dr. Ashlie Hills SPEC GRAVITY >=1.030 Abnormal 1.005-<=1.025 [facility] Comment on above: Performed By: #### I NFLUAB #### [facility] [address] [place] [address] Dr. Ashlie Hills UA PROTEIN 100 mg/dl Abnormal NEGATIVE/ TRACE [facility] Comment on above: Performed By: #### I NFLUAB #### [facility] [address] [place] [address] Dr. Ashlie Hills Urobilinogen Qn (U) 0.2 {Little'U}/dL Normal 0.2 - 1. 0 [facility] Comment on above: Performed By: #### I NFLUAB #### [facility] [address] [address] [address] Ashlie Hills WBC NONE SEEN Normal NONE SEEN [facility] Comment on above: Performed By: #### I NFLUAB #### [facility] [address] [address] [address] Ashlie Hills URIC ACID SERUMon 03-03-2022 Urate [Mass/Vol] 5.0 mg/dL Normal 2.6-6.0 [facility] Comment on above: Performed By: #### I NFLUAB #### [facility] [address] [place] [address] Dr. Ashlie Hills URINE T PROTEIN CREAT RATIOo n 03-03-2022 Protein (U) [Mass/Vol] 77.9 mg/dL Critically high <=12.0 [facility] Comment on above: Performed By: #### C VDAGS #### [facility] [address] [address] [address] Ashlie Hills UR PROT CREAT RAT 0.44 Normal The [facility] Comment on above: Performed By: #### C VDAGS #### [facility] [address] [place] [address] Dr. Ashlie Hills URINE CREAT 175.15 mg/dL Normal 20.00-300.00 [facility] Comment on above: Performed By: #### C VDAGS #### [facility] [address] [place] [address] Dr. Ashlie Hills CULTURE URINEon 12-25-2021 CULTURE URINE Culture Observations: GREATER THAN TWO ORGANISMS PRESENT, HEAVILY MIXED. PLEASE RESUBMIT CLEAN CATCH MID-STREAM URINE IF CLINICALLY INDICATED. Normal [facility] Comment on above: Performed By: #### I NFLUAB #### [facility] [address] [place] [address] Dr. Ashlie Hills CBC AUTO DIFFon 12-24-2021 BASO # 0.1 103/ul Normal 0.0-0.1 [facility] Comment on above: Performed By: #### C BC #### [facility] [address] [place] [address] Dr. Ashlie Hills Basophils/100 WBC (Bld) 0.5 % Normal 0.2-2.0 [facility] Comment on above: Performed By: #### C BC #### [facility] [address] [place] [address] Dr. Ashlie Hills EO # 0.4 103/ul Normal 0.0-0.7 [facility] Comment on above: Performed By: #### C BC #### [facility] [address] [place] [address] Dr. Ashlie Hills Eosinophils/100 WBC (Bld) 2.4 % Normal 0.9-7.0 [facility] Comment on above: Performed By: #### C BC #### [facility] [address] [place] [address] Dr. Ashlie Hills Erythrocyte distribution width (RBC) [Ratio] 14.1 % Normal 11.0-15.0 [facility] Comment on above: Performed By: #### C BC #### [facility] [address] [place] [address] Dr. Ashlie Hills Hematocrit (Bld) [Volume fraction] 55.9 % Critically high 36.0-48.0 [facility] Comment on above: Performed By: #### C BC #### [facility] [address] [place] [address] Dr. Ashlie Hills Hemoglobin (Bld) [Mass/Vol] 17.9 g/dL Critically high 12.0-16.0 [facility] Comment on above: Performed By: #### C BC #### [facility] [address] [place] [address] Dr. Ashlie Hills IG # 0.06 10e3/ul Critically high 0.00-0.03 [facility] Comment on above: Performed By: #### C BC #### [facility] [address] [place] [address] Dr. Ashlie Hills IG % 0.4 % Normal 0.0-0.5 [facility] Comment on above: Performed By: #### C BC #### [facility] [address] [place] [address] Dr. Ashlie Hills LYMPH # 5.8 103/ul Critically high 1.2-3.8 [facility] Comment on above: Performed By: #### C BC #### [facility] [address] [place] [address] Dr. Ashlie Hills Lymphocytes/100 WBC (Bld) 35.4 % Normal 20.5-60.0 [facility] Comment on above: Performed By: #### C BC #### [facility] [address] [place] [address] Dr. Ashlie Hills MANUAL DIFF REQ NO Normal [facility] Comment on above: Performed By: #### C BC #### [facility] [address] [place] [address] Dr. Ashlie Hills MCH (RBC) [Entitic mass] 29.4 pg Normal 26.7-34.0 [facility] Comment on above: Performed By: #### C BC #### [facility] [address] [place] [address] Dr. Ashlie Hills MCHC (RBC) [Mass/Vol] 32.0 g/dL Normal 29.9-35.2 [facility] Comment on above: Performed By: #### C BC #### [facility] [address] [place] [address] Dr. Ashlie Hills MCV (RBC) [Entitic vol] 91.8 fL Normal 81.0-99.0 [facility] Comment on above: Performed By: #### C BC #### [facility] [address] [place] [address] Dr. Ashlie Hills MONO # 0.8 103/ul Normal 0.3-0.8 [facility] Comment on above: Performed By: #### C BC #### [facility] [address] [place] [address] Dr. Ashlie Hills Monocytes/100 WBC (Bld) 4.8 % Normal 1.7-12.0 [facility] Comment on above: Performed By: #### C BC #### [facility] [address] [address] [address] Ashlie Hills NEUT # 9.3 103/ul Critically high 1.4-6.5 [facility] Comment on above: Performed By: #### C BC #### [facility] [address] [address] [address] Ashlie Hills Neutrophils/100 WBC (Bld) 56.5 % Normal 43.0-75.0 [facility] Comment on above: Performed By: #### C BC #### [facility] [address] [address] [address] Ashlie Hills Platelet mean volume (Bld) [Entitic vol] 12.9 fL Normal 9.5-13.5 [facility] Comment on above: Performed By: #### C BC #### [facility] [address] [address] [address] Ashlie Hills PLT 127 103/ul Critically low 150-450 [facility] Comment on above: Performed By: #### C BC #### [facility] [address] [address] [address] Ashlie Hills RBC 6.09 106/ul Critically high 4.20-5.40 [facility] Comment on above: Performed By: #### C BC #### [facility] [address] [place] [address] Dr. Ashlie Hills WBC 16.4 103/ul Critically high 4.0-11.0 [facility] Comment on above: Performed By: #### C BC #### [facility] [address] [place] [address] ABD/PELVIS WO CONon [...] Severe right hip degenerative change. Normal [facility] ER URINE PROFILEon 2 Bilirubin Ql (U) Negative Normal NEGATIVE [facility] Comment on above: Performed By: #### E RUR, UMICRO #### [facility] [address] [place] [address] Dr. Ashlie Hills Clarity (U) CLEAR Normal CLEAR [facility] Comment on above: Performed By: #### E RUR, UMICRO #### [facility] [address] [place] [address] Dr. Ashlie Hills Color (U) DK. ORANGE Abnormal YELLOW [facility] Comment on above: Performed By: #### E RUR, UMICRO #### [facility] [address] [place] [address] Dr. Ashlie HOBBS A micrscopic examination will be performed if indicated. Normal [facility] Comment on above: Performed By: #### E RUR, UMICRO #### [facility] [address] [place] [address] Dr. Ashlie Hills Glucose Ql (U) 250 mg/dl Abnormal NEGATIVE [facility] Comment on above: Performed By: #### E RUR, UMICRO #### [facility] [address] [place] [address] Dr. Ashlie Hills Hemoglobin Ql (U) Negative Normal NEGATIVE [facility] Comment on above: Performed By: #### E RUR, UMICRO #### [facility] [address] [place] [address] Dr. Ashlie Hills Ketones Ql (U) Negative Normal NEGATIVE [facility] Comment on above: Performed By: #### E RUR, UMICRO #### [facility] [address] [place] [address] Dr. Ashlie Hills LEUKOCYTES Negative Normal NEGATIVE [facility] Comment on above: Performed By: #### E RUR, UMICRO #### [facility] [address] [place] [address] Dr. Ashlie Hills Nitrite Ql (U) Negative Normal NEGATIVE [facility] Comment on above: Performed By: #### E RUR, UMICRO #### [facility] [address] [place] [address] Dr. Ashlie Hills pH (U) 5.0 [pH] Normal 5-9 [facility] Comment on above: Performed By: #### MADELINE DIAZRO #### [facility] [address] [place] [address] Dr. Ashlie Hills Protein (U) [Mass/Vol] 100 mg/dL Abnormal NEGAT YURY/ TRACE [facility] Comment on above: Performed By: #### Tracey LYMAN, UMICRO #### [facility] [address] [place] [address] Dr. Ashlie Hills SPEC GRAVITY >=1.030 Abnormal 1.005-<=1.025 [facility] Comment on above: Performed By: #### Tracey LYMAN, MADELINERO #### [facility] [address] [place] [address] Dr. Ashlie Hills UR MICRO IND INDICATED Normal [facility] Comment on above: Performed By: #### Tracey LYMAN UMHARRIETRO #### [facility] [address] [place] [address] Dr. Ashlie Hills Urobilinogen Qn (U) 1.0 {Little'U}/dL Normal 0.2 - 1. 0 [facility] Comment on above: Performed By: #### Tracey LYMAN, MADELINERO #### [facility] [address] [place] [address] Dr. Ashlie Hills PROF CHEM 8 (BAS METB)on Anion gap [Moles/Vol] 12.1 mmol/L Normal [facility] Comment on above: Performed By: #### I NFLUAB #### [facility] [address] [place] [address] Dr. Ashlie Hills Calcium [Mass/Vol] 9.0 mg/dL Normal 8.5-10.1 [facility] Comment on above: Performed By: #### I NFLUAB #### [facility] [address] [place] [address] Dr. Ashlie Hills Chloride [Moles/Vol] 101 mmol/L Normal 98-107 [facility] Comment on above: Performed By: #### I NFLUAB #### [facility] [address] [address] [address] Ashlie Hills CO2 [Moles/Vol] 29.1 mmol/L Normal 21.0-32.0 [facility] Comment on above: Performed By: #### I NFLUAB #### [facility] [address] [address] [address] Ashlie Hills Creatinine [Mass/Vol] 0.86 mg/dL Normal 0.55-1.02 [facility] Comment on above: Performed By: #### I NFLUAB #### [facility] [address] [place] [address] Dr. Ashlie Hills EGFR-AF GHANAIAN >60 Normal >=60 [facility] Comment on above: Performed By: #### I NFLUAB #### [facility] [address] [address] [address] Ashlie Hills EGFR-NON AF GHANAIAN >60 Normal >=60 [facility] Comment on above: Performed By: #### I NFLUAB #### [facility] [address] [address] [address] Ashlie Hills Glucose [Mass/Vol] 236 mg/dL Critically high 74-106 [facility] Comment on above: Performed By: #### I NFLUAB #### [facility] [address] [address] [address] Ashlie Hills Potassium [Moles/Vol] 4.2 mmol/L Normal 3.5-5.1 [facility] Comment on above: Performed By: #### I NFLUAB #### [facility] [address] [address] [address] Ashlie Hills Sodium [Moles/Vol] 138 mmol/L Normal 136-145 [facility] Comment on above: Performed By: #### I NFLUAB #### [facility] [address] [address] [address] Ashlie Hills Urea nitrogen [Mass/Vol] 11.0 mg/dL Normal 7.0-18.0 [facility] Comment on above: Performed By: #### I NFLUAB #### [facility] [address] [place] [address] Dr. Ashlie Hills Urea nitrogen/Creatinine [Mass ratio] 12.8 mg/mg Normal [facility] Comment on above: Performed By: #### I NFLUAB #### [facility] [address] [place] [address] Dr. Ashlie Hills URINE MICROSCOPIC ONLYon BACTERIA SMALL Abnormal NONE SEEN [facility] Comment on above: Performed By: #### E RUR, UMICRO #### [facility] [address] [place] [address] Dr. Ashlie Hills Bacteria identified Cx Nom (U) INDICATED Normal [facility] Comment on above: Performed By: #### E RUR, UMICRO #### [facility] [address] [place] [address] Dr. Ashlie Hills CAST NONE SEEN Normal NONE SEEN [facility] Comment on above: Performed By: #### E RUR, UMICRO #### [facility] [address] [place] [address] Dr. Ashlie Hills Crystals LM Nom (Urine sed) NONE SEEN Normal NONE SEEN [facility] Comment on above: Performed By: #### E RUR, UMICRO #### [facility] [address] [place] [address] Dr. Ashlie Hills Epithelial cells LM Ql (Urine sed) MODERATE Abnormal NONE SEEN /RARE [facility] Comment on above: Performed By: #### E RUR, UMICRO #### [facility] [address] [place] [address] Dr. Ashlie Hills MUCOUS NONE SEEN Normal NONE SEEN [facility] Comment on above: Performed By: #### E RUR, UMICRO #### [facility] [address] [place] [address] Dr. Ashlie Hills RBC 0-2 Normal 0-2 [facility] Comment on above: Performed By: #### E NURA, UMICRO #### [facility] [address] [place] [address] Dr. Ashlie Hills WBC 0-2 Abnormal NONE SEEN [facility] Comment on above: Performed By: #### E EVONNE LYMAN #### [facility] [address] [address] [address] Ashlie Hills YEAST PRESENT Abnormal NONE SEEN [facility] Comment on above: Performed By: #### E EVONNE LYMAN #### [facility] [address] [address] [address] Ashlie Hills HIP RIGHT 1 OR 2 VWS WITH PE LVISon 07-20-2020 HIP RIGHT 1 OR 2 VWS WITH PELVIS [facility] Department of Radiology [address] [place] [address] Patient Name: MITZI MACIAS : 1970 Sex: F Age: Race: White Pt. Location: Patient Status: O Ordered Date: 07/20/2020 1:45:00 PM Completed Date: 07/20/2020 01:57 PM Requesting Provider: LIZ EISENBERG Attending Provider: LIZ EISENBERG Report Copy To: MCKAYLA BLAS Signs & Symptoms: M25.551 Pain in right hip I10 History: [place] Comments: evaluate Exam: HIP RIGHT 1 OR [...] MRI. Electronically signed: Pipo Acevedo. Transcribed by: [email or web address], User Resident: Electronically Signed by: PIPO ACEVEDO @ 07/20/2020 03:45 PM Normal [facility] Comment on above: Order Comment: evalu ate Vital Signs Date Time Vital Sign Value Performing Clinician Facility 01-29-2025 09:48-0400 Body height 170.2 cm Rain Souza MD Work Phone: [facility] 01-29-2025 09:48-0400 Body mass index (BMI) [Ratio] 56.38 kg/m2 Rain Souza MD Work Phone: [facility] 01-29-2025 09:48-0400 Body weight 163.29 kg Rain Souza MD Work Phone: [facility] 01-29-2025 09:48-0400 Diastolic blood pressure 70 mm[Hg] Rain Souza MD Work Phone: [facility] 01-29-2025 09:48-0400 Heart rate 72 /min Rain Souza MD Work Phone: [facility] 01-29-2025 09:48-0400 Respiratory rate 16 /min Rain Souza MD Work Phone: [facility] 01-29-2025 09:48-0400 SaO2% (BldA) [Mass fraction] 84 % Rain Souza MD Work Phone: [facility] 01-29-2025 09:48-0400 Systolic blood pressure 130 mm[Hg] Rain Souza MD Work Phone: [facility] 01-26-2025 18:11-0400 Body mass index (BMI) [Ratio] 58.64 kg/m2 Mckayla Blas NP Work Phone: [facility] 01-26-2025 18:11-0400 Body temperature 98.49 [degF] Mckayla Aichholz [employer] INSPECT[employer] Work Phone: [facility] 01-26-2025 18:11-0400 Body weight 169.83 kg Mckayla Aichholz [employer]UMENT INSPECTOR Work Phone: [facility] 01-26-2025 18:11-0400 Diastolic blood pressure 82 mm[Hg] Mckayla Aichholz [employer] INSTRUMENT INSPECTOR Work Phone: [facility] 01-26-2025 18:11-0400 Heart rate 81 /min Mckayla Aichholz [employer] INSTRUMENT INSPECTOR Work Phone: [facility] 01-26-2025 18:11-0400 Respiratory rate 20 /min Mckayla Aichholz [employer] INSTRUMENT INSPECTOR Work Phone: [facility] 01-26-2025 18:11-0400 SaO2% (BldA) [Mass fraction] 90 % Mckayla Aichholz [employer] INSTRUMENT INSPECTOR Work Phone: [facility] 01-26-2025 18:11-0400 Systolic blood pressure 126 mm[Hg] Mckayla Aichholz [employer] INSTRUMENT INSPECTOR Work Phone: [facility] 12-09-2024 10:19-0400 Body temperature 98.01 [degF] Mckayla Aichholz [employer] INSTRUMENT INSPECTOR Work Phone: [facility] 12-09-2024 10:19-0400 Diastolic blood pressure 76 mm[Hg] Mckayla Aichholz [employer] INSTRUMENT INSPECTOR Work Phone: [facility] 12-09-2024 10:19-0400 Heart rate 71 /min Mckayla Aichholz [employer] INSTRUMENT INSPECTOR Work Phone: [facility] 12-09-2024 10:19-0400 Respiratory rate 20 /min Mckayla Aichholz [employer] INSTRUMENT INSPECTOR Work Phone: [facility] 12-09-2024 10:19-0400 SaO2% (BldA) [Mass fraction] 88 % Mckayla Aichholz [employer] INSTRUMENT INSPECTOR Work Phone: [facility] 12-09-2024 10:19-0400 Systolic blood pressure 150 mm[Hg] Mckayla Blas [employer] INSTRUMENT INSPECTOR Work Phone: [facility] 10-27-2024 14:11-0400 Body height 170.2 cm Mckayla Blas [employer]UMENT INSPECTOR Work Phone: [facility] 10-27-2024 14:11-0400 Body mass index (BMI) [Ratio] 56.51 kg/m2 Mckaylajuvenal Rosenbergz [employer] IN[employer]UMENT INSPECTOR Work Phone: [facility] 10-27-2024 14:11-0400 Body temperature 98.71 [degF] Mckayla Rosenbergz F[employer]ED INSTRUMENT INSPECTOR Work Phone: [facility] 10-27-2024 14:11-0400 Body weight 163.66 kg Mckayla Blas FRETTED INSTRUMENT INSPECTOR Work Phone: [facility] 10-27-2024 14:11-0400 Diastolic blood pressure 74 mm[Hg] Mckayla Rosenbergz FRETTED INSTRUMENT INSPECTOR Work Phone: [facility] 10-27-2024 14:11-0400 Heart rate 75 /min Mckaylajuvenal Rosenbergz FRETTED INSTRUMENT INSPECTOR Work Phone: [facility] 10-27-2024 14:11-0400 Respiratory rate 18 /min Mckaylajuvenal Blas FRETTED INSTRUMENT INSPECTOR Work Phone: [facility] 10-27-2024 14:11-0400 SaO2% (BldA) [Mass fraction] 90 % Mckaylajuvenal Rosenbergz FRETTED INSTRUMENT INSPECTOR Work Phone: [facility] 10-27-2024 14:11-0400 Systolic blood pressure 132 mm[Hg] Mckayla Rosenbergz FRETTED INSTRUMENT INSPECTOR Work Phone: [facility] 10-08-2024 11:040 Body height 170.2 cm Rain Souza MD Work Phone: [facility] 10-08-2024 11:21-0400 Body mass index (BMI) [Ratio] 55.91 kg/m2 Rain Souza MD Work Phone: [facility] 10-08-2024 11:21-0400 Body weight 161.93 kg Rain Souza MD Work Phone: [facility] 10-08-2024 11:21-0400 Diastolic blood pressure 70 mm[Hg] Rain Souza MD Work Phone: [facility] 10-08-2024 11:21-0400 Heart rate 70 /min Rain Souza MD Work Phone: [facility] 10-08-2024 11:21-0400 Respiratory rate 16 /min Rain Souza MD Work Phone: [facility] 10-08-2024 11:21-0400 SaO2% (BldA) [Mass fraction] 91 % Rain Souza MD Work Phone: [facility] 10-08-2024 11:21-0400 Systolic blood pressure 130 mm[Hg] Rain Souza MD Work Phone: [facility] 08-27-2024 17:44-0500 Body mass index (BMI) [Ratio] 57.31 kg/m2 Mckayla Wan FRETTED INSTRUMENT INSPECTOR Work Phone: [facility] 08-27-2024 17:44-0500 Body temperature 98.01 [degF] Mckayla Wan FRETTED INSTRUMENT INSPECTOR Work Phone: [facility] 08-27-2024 17:44-0500 Body weight 165.97 kg Mckayla Wan FRETTED INSTRUMENT INSPECTOR Work Phone: [facility] 08-27-2024 17:44-0500 Diastolic blood pressure 76 mm[Hg] Mckayla Wan FRETTED INSTRUMENT INSPECTOR Work Phone: [facility] 08-27-2024 17:44-0500 Heart rate 83 /min Mckayla Wan FRETTED INSTRUMENT INSPECTOR Work Phone: [facility] 08-27-2024 17:44-0500 Respiratory rate 18 /min Mckayla Wan FRETTED INSTRUMENT INSPECTOR Work Phone: [facility] 02-19-2025 17:44-0500 SaO2% (BldA) [Mass fraction] 91 % Mckayla Sowdona FRETTED INSTRUMENT INSPECTOR Work Phone: [facility] 08-27-2024 17:44-0500 Systolic blood pressure 134 mm[Hg] Mckayla Patriciajodie FRETTED INSTRUMENT INSPECTOR Work Phone: [facility] 06-11-2024 10:00-0500 Blood Pressure Location Elbert ARAUZ [facility] 06-11-2024 10:00-0500 Diastolic blood pressure 68 mm[Hg] Elbert ARAUZ [facility] 06-11-2024 10:00-0500 Heart rate 76 /min Elbert ARAUZ [facility] 06-11-2024 10:00-0500 Systolic blood pressure 132 mm[Hg] Elbert ARAUZ [facility] 05-27-2024 10:20-0500 Body height 170.2 cm Rain Souza MD Work Phone: [facility] 05-27-2024 10:20-0500 Body mass index (BMI) [Ratio] 56.7 kg/m2 Rain Souza MD Work Phone: [facility] 05-27-2024 10:20-0500 Body weight 164.2 kg Rain Souza MD Work Phone: [facility] 05-27-2024 10:20-0500 Diastolic blood pressure 66 mm[Hg] Rain Souza MD Work Phone: [facility] 05-27-2024 10:20-0500 Heart rate 72 /min Rain Souza MD Work Phone: [facility] 05-27-2024 10:20-0500 Respiratory rate 16 /min Rain Souza MD Work Phone: [facility] 05-27-2024 10:20-0500 Systolic blood pressure 128 mm[Hg] Rain Souza MD Work Phone: [facility] 04-14-2024 10:27-0400 Body height 165.1 cm Mckayla Sowdona FRETTED INSTRUMENT INSPECTOR Work Phone: [facility] 04-14-2024 10:27-0400 Body mass index (BMI) [Ratio] 61.01 kg/m2 Mckayla Wan FRETTED INSTRUMENT INSPECTOR Work Phone: [facility] 04-14-2024 10:27-0400 Body temperature 98.49 [degF] Mckayla Wan FRETTED INSTRUMENT INSPECTOR Work Phone: [facility] 04-14-2024 10:27-0400 Body weight 166.29 kg Mckayla Wan FRETTED INSTRUMENT INSPECTOR Work Phone: [facility] 04-14-2024 10:27-0400 Diastolic blood pressure 80 mm[Hg] Mckayla Chetz FRETTED INSTRUMENT INSPECTOR Work Phone: [facility] 04-14-2024 10:27-0400 Heart rate 77 /min Mckayla Chetz FRETTED INSTRUMENT INSPECTOR Work Phone: [facility] 04-14-2024 10:27-0400 Respiratory rate 19 /min Mckayla Chetz FRETTED INSTRUMENT INSPECTOR Work Phone: [facility] 04-14-2024 10:27-0400 SaO2% (BldA) [Mass fraction] 92 % Mckayla Chetz FRETTED INSTRUMENT INSPECTOR Work Phone: [facility] 04-14-2024 10:27-0400 Systolic blood pressure 116 mm[Hg] Mckayla Chetz FRETTED INSTRUMENT INSPECTOR Work Phone: [facility] 03-08-2022 15:00-0400 Body height 170.18 cm Stephanie Tico Other [facility] [employer] Other 03-08-2022 15:00-0400 Body temperature 97.6 [degF] Stephanie Tico Other [employer] Other 03-08-2022 15:00-0400 Diastolic blood pressure 72 mm[Hg] Stephanie Tico Other [employer] Other 03-08-2022 15:00-0400 Respiratory rate 20 /min Stephanie Tico Other [employer] Other 03-08-2022 15:00-0400 SaO2% (BldA) [Mass fraction] 91 % Stephanie Tico Other [employer] Other 03-08-2022 15:00-0400 Systolic blood pressure 131 mm[Hg] Stephanie Tico Other [employer] Other 02-20-2022 09:20-0400 Body height 170.18 cm Stephanie Tico Other [employer] Other 02-20-2022 09:20-0400 Body temperature 96.5 [degF] Stephanie Tico Other [employer] Other 02-20-2022 09:20-0400 Diastolic blood pressure 69 mm[Hg] Stephanie Tico Other [employer] Other 02-20-2022 09:20-0400 Respiratory rate 20 /min Stephanie Tico Other [employer] Other 02-20-2022 09:20-0400 SaO2% (BldA) [Mass fraction] 91 % Stephanie Tico Other [employer] Other 02-20-2022 09:20-0400 Systolic blood pressure 129 mm[Hg] Stephanie Lizamadir Other [facility] [employer] Other 02-06-2022 10:24-0400 Blood Pressure Location Elbert ARAUZ [facility] 02-06-2022 10:24-0400 Diastolic blood pressure 76 mm[Hg] Elbert ARAUZ [facility] 02-06-2022 10:24-0400 Heart rate 70 /min Elbert ARAUZ [facility] 02-06-2022 10:24-0400 Respiratory rate 16 /min Elbert ARAUZ [facility] [employer] 02-06-2022 10:24-0400 Systolic blood pressure 134 mm[Hg] Elbert ARAUZ [facility] Encounters Encounter Date Encounter Type Care Provider Facility Start: 01-29-2025 End: 01-29-2025 Bamboo flowsheet Rain Souza MD Work Phone: [facility] Start: 01-29-2025 End: 01-29-2025 Bamboo flowsheet Rain Souza MD Work Phone: [facility] Start: 01-29-2025 End: 01-29-2025 Clinisync Result Encounter Generic External Data Provider [facility] External Department Unsolicited Start: 01-29-2025 End: 01-29-2025 ambulatory RAIN SOUZA Not Available Start: 01-29-2025 End: 01-29-2025 Office outpatient visit 25 minutes Rain Souza MD Work Phone: [facility] Comment on above: Encounter for dietar y consultation (Primary Dx); Type 2 diabetes mellitus with hyperglycemia, with long-term current use of insulin (HCC); Vitamin D deficiency; Primary hypertension ; Insulin long-term use (HCC); Hyperlipemia, mixed ; Microalbuminuria; Class 3 severe obesity due to excess calories with serious comorbidity and body mass index (BMI) of 50.0 to 59.9 in adult ([facility]) Start: 01-26-2025 End: 01-26-2025 ambulatory MCKAYLA BLAS Not Available Start: 01-26-2025 End: 01-26-2025 Patient encounter procedure Mckayla Blas NP Work Phone: [facility] Comment on above: Encounter for subseq uent annual wellness visit (AWV) in Medicare patient [...] Morbid (severe) obesity due to excess calories ([facility]) Start: 01-06-2025 End: 01-06-2025 ambulatory [facility] Start: 12-18-2024 End: 12-19-2024 Refill Mckayla Blas NP Work Phone: [facility] Comment on above: Hyperlipidemia, unsp ecified ; Tobacco user; Encounter for smoking cessation counseling Start: 12-09-2024 End: 12-09-2024 Bamboo flowsheet Mckayla Blas NP Work Phone: [facility] Start: 12-09-2024 End: 12-09-2024 Bamboo flowsheet Mckayla Blas FRETTED INSTRUMENT INSPECTOR Work Phone: [facility] Start: 12-09-2024 End: 12-09-2024 ambulatory MCKAYLA AICHHOLZ Not Available Start: 12-09-2024 End: 12-09-2024 Office outpatient visit 25 minutes Mckayla Blas FRETTED INSTRUMENT INSPECTOR Work Phone: [facility] Comment on above: Cellulitis of left l [...] Office outpatient visit 25 minutes Mckayla Blas FRETTED INSTRUMENT INSPECTOR Work Phone: [facility] Comment on above: Primary hypertension [...] 10-21-2024 Refill Mckayla Blas NP Work Phone: [facility] Comment on above: Chronic obstructive pulmonary disease, unspecified Start: 10-08-2024 End: 10-08-2024 Clinisync Result Encounter Mckayla Blas NP Work Phone: [facility] External Department Unsolicited Start: 10-08-2024 End: 10-08-2024 Clinisync Result Encounter Mckayla Wan SCHAEFER Work Phone: [facility] External Department Unsolicited Start: 10-08-2024 End: 10-08-2024 Office outpatient visit 25 minutes Rain Souza MD Work Phone: [facility] Comment on above: Type [...] 25 minutes Mckayla Blas NP Work Phone: [facility] Comment on above: Anxiety and depressi on [...] complication, with long-term current use of insulin ([facility]); Tobacco user; Mixed hyperlipidemia ([facility]); Gout, unspecified cause, unspecified chronicity, unspecified site; Vitamin deficiency; Gastro-esophageal reflux disease without esophagitis; Edema, unspecified; Edema; Hyperlipidemia, unspecified ([facility]); Encounter for smoking cessation counseling; Venous ulcer of right leg ([facility]); Antibiotic-induced yeast infection Start: 08-27-2024 End: 08-27-2024 ambulatory MCKAYLA BLAS Not Available Start: 08-27-2024 End: 08-27-2024 Clinisync Result Encounter Generic External Data Provider [facility] External Department Unsolicited Start: 08-27-2024 End: 08-27-2024 Clinisync Result Encounter Generic External Data Provider [facility] External Department Unsolicited Start: 08-08-2024 End: 08-08-2024 ambulatory [facility] Start: 07-17-2024 End: 07-17-2024 Refill Mckayla Blas NP Work Phone: [facility] Start: 07-14-2024 End: 07-14-2024 Office outpatient visit 25 minutes Mckayla Blas NP Work Phone: [facility] Comment on above: Primary hypertension ([facility]) (Primary Dx); Diabetic polyneuropathy associated with type 2 diabetes mellitus ([facility]); Pulmonary emphysema, unspecified emphysema type ([facility]); Critical limb ischemia of right lower extremity ([facility]); PAD (peripheral artery disease) ([facility]); Gastroesophageal reflux disease, unspecified whether esophagitis present; Bilateral lower extremity edema; Venous ulcer of right leg ([facility]); Type 2 diabetes mellitus with complication, with long-term current use of insulin ([facility]); Tobacco user; Encounter for smoking cessation counseling; Kidney stone; Adrenal mass 1 cm to 4 cm in diameter ([facility]); Radiculopathy, lumbar region; Non-seasonal allergic rhinitis, unspecified trigger; Type 2 diabetes mellitus with unspecified complications ([facility]) Start: 07-14-2024 End: 07-14-2024 ambulatory MCKAYLA AICHHOLZ Not Available Start: 07-05-2024 End: 07-07-2024 Refill Mckayla Aichholz FRETTED INSTRUMENT INSPECTOR Work Phone: [facility] Comment on above: Bilateral lower extr emity edema Start: 06-11-2024 ambulatory Elbert ARAUZ [place] ty:SHEA [place] Start: 06-11-2024 End: 06-11-2024 Patient encounter procedure Elbert ARAUZ [facility] [place] Start: 05-27-2024 End: 05-27-2024 Bambolalo flowsheet Rain Souza MD Work Phone: [facility] Start: 05-27-2024 End: 05-27-2024 Bamboo flowsheet Rain Souza MD Work Phone: [facility] Start: 05-27-2024 End: 05-27-2024 ambulatory RAIN SOUZA Not Available Start: 05-27-2024 End: 05-27-2024 Office outpatient visit 25 minutes Rain Souza MD Work Phone: [facility] Comment on above: Type 2 diabetes asiya itus with hyperglycemia, with long-term current use of insulin ([facility]) (Primary Dx); Encounter for dietary consultation; Vitamin D deficiency; Primary hypertension ([facility]); Insulin long-term use ([facility]); Hyperlipemia, mixed (CMS/HCC); Microalbuminuria; Class 3 severe obesity due to excess calories with serious comorbidity and body mass index (BMI) of 50.0 to 59.9 in adult (CMS/HCC) Start: 05-12-2024 End: 05-12-2024 Clinisync Result Encounter Generic External Data Provider [facility] External Department Unsolicited Start: 05-12-2024 End: 05-12-2024 Clinisync Result Encounter Generic External Data Provider [facility] External Department Unsolicited Start: 05-08-2024 ambulatory SARAH Wilkerson ty:[place] Start: 04-14-2024 End: 04-14-2024 Bamboo flowsheet Mckayla Aichholz FRETTED INSTRUMENT INSPECTOR Work Phone: [facility] Start: 04-14-2024 End: 04-14-2024 Bamboo flowsheet Mckayla Aichholz FRETTED INSTRUMENT INSPECTOR Work Phone: [facility] Start: 04-14-2024 End: 04-14-2024 Office outpatient visit 25 minutes Mckayla Harshadholz FRETTED INSTRUMENT INSPECTOR Work Phone: [facility] Comment on above: Primary hypertension [...] Start: 04-05-2024 End: 04-06-2024 Refill Mckayla Aichholz FRETTED INSTRUMENT INSPECTOR Work Phone: [facility] Comment on above: Hyperlipidemia, unsp ecified (CMS/HCC); Bilateral lower extremity edema Vitamin D deficiency , unspecified Start: 01-17-2024 Patient encounter procedure Rain Souza MD Work Phone: [facility] Start: 08-17-2023 Refill Mckayla Aichholz FRETTED INSTRUMENT INSPECTOR Work Phone: [facility] Comment on above: Vaginal yeast infect ion (Primary Dx) Start: 08-14-2023 Refill Mckayla Aichholz FRETTED INSTRUMENT INSPECTOR Work Phone: [facility] Comment on above: Type 2 diabetes asiya itus with unspecified complications (CMS/HCC); Edema, unspecified; Edema Start: 12-05-2022 ambulatory NARENDRANATH LAKSHMIPATHY . Facility:[facility] Start: 12-05-2022 End: 12-06-2022 Evaluation and management of inpatient UMBERTO CANTU . Facility:[facility] Start: 11-23-2022 End: 11-23-2022 ambulatory SAYDA BLAS Facility:[facility] Start: 11-22-2022 End: 11-23-2022 ambulatory SAYDA BLAS Facility:[facility] Start: 11-17-2022 End: 11-18-2022 ambulatory SUBHASH GASPAR . Facility:[facility] Start: 11-15-2022 End: 11-15-2022 Patient encounter procedure SARAH VEGA [facility] Start: 10-05-2022 End: 10-05-2022 ambulatory MARIANO BLAKE . Facility:[facility] Start: 09-21-2022 End: 09-21-2022 ambulatory SAYDA BLAS Facility:[facility] Start: 09-14-2022 ambulatory RAFAEL ROLAN Ribera y:[facility]1 Start: 08-24-2022 End: [address] CHAPARRO MORTENSEN . Facility:[facility] Start: 08-21-2022 End: 08-22-2022 ambulatory HATTIE BRODERICK Facility:[facility] Start: 07-27-2022 End: 07-28-2022 ambulatory CECILIA TORRES . Facility:[facility] Start: 07-18-2022 End: 07-19-2022 ambulatory CECILIA TORRES . Facility:[facility] Start: 07-18-2022 End: 07-19-2022 ambulatory HATTIE BRODERICK Facility:[facility] Start: 07-06-2022 End: 07-06-2022 ambulatory SAYDA SOWCayetanoJODIE Facility:[facility] Start: 05-11-2022 End: 05-12-2022 ambulatory GIL VALENZUELA . Facility:[facility] Start: 04-25-2022 End: 04-25-[address] CHAPARRO MORTENSEN . Facility:[facility] Start: 04-20-2022 End: 04-21-2022 ambulatory GIL VALENZUELA . Facility:[facility] Start: 03-08-2022 End: 03-08-2022 ambulatory Stephanie Tico Other [employer] Other Start: 03-08-2022 Office outpatient vi sit 15 minutes Stephanie Tico [facility] Start: 03-03-2022 End: 03-04-2022 ambulatory BLOWER INSTALLER MCKAYLA BLAS Facility:[facility] Start: 02-20-2022 End: 02-20-2022 ambulatory Stephanie Tico Other [employer] Other Start: 02-20-2022 Office outpatient ne w 45 minutes Stephanie Tcio [facility] Start: 02-06-2022 End: 02-06-2022 Patient encounter procedure Elbert ARAUZ [facility] Start: 01-19-2022 End: 01-20-2022 ambulatory GIL VALENZUELA . Facility:[facility] Start: 12-24-2021 End: 12-24-2021 ambulatory OLE ASHLEY Facility: Start: 08-26-2020 End: 09-10-2020 Patient encounter procedure MARY GABINOLOS Facility:[facility] Start: 10-30-2019 End: 10-30-2019 Emergency department patient visit [facility] Start: 10-30-2019 End: 10-30-2019 Emergency department patient visit [facility] Emergency Department Start: 11-02-2016 Preoperative state Stephanie Tico Other [employer] Other Procedures Date Procedure Procedure Detail Performing Clinician Start: 01-29-2025 CA ECHO DOPPLER COMPLETE Generic External Data Provider Start: 01-29-2025 Gluc bld gluc mntr d ev cleared fda spec home use Rain Souza MD Work Phone: Start: 12-04-2024 BLOOD CULTURE 2 Generic External Data Provider Start: 12-04-2024 BLOOD CULTURE 1 Generic External Data Provider Start: 10-08-2024 Gluc bld gluc mntr d ev cleared fda spec home use Rain Souza MD Work Phone: Start: 10-08-2024 [facility] UA (CLEAN/CATCH) MICROSCOPIC IF INDICATE Mckayla Blas NP Work Phone: Start: 08-27-2024 ALL CBC WITH AUTO DIFF Generic External Data Provider Start: 05-27-2024 Gluc bld gluc mntr d ev cleared fda spec home use Rain Souza MD Work Phone: Start: 05-12-2024 [facility] CREATININE Generic External Data Provider Start: 12-14-2023 Mammography Rain urena MD Work Phone: Start: 11-22-2022 Mammography Mckayla clifford NP Work Phone: Start: 10-08-2015 Microscopic observat ion [Identifier] in Cervix by Cyto stain Mckayla Blas NP Work Phone: H/O: hysterectomy Elbert LARA Laparoscopic cholecystectomy Elbert ARAUZ Operative procedure on foot Elbert ARAUZ Plan of Treatment Date Care Activity Detail Author Start: 02-01-2026 End: 02-01-2026 Patient encounter procedure 02/01/2026 6:00 PM EDT Office Visit [facility] [address] [place] [address] Mckayla Blas NP [address] [place] [address] [facility] Start: 01-26-2026 Medicare Annual Wellness (AWV) Medicare Annual Wellness (AWV) [facility] Start: 10-08-2025 Urine screening for protein Diabetes: Urine Protein Screening [facility] Start: 08-03-2025 Screening for malignant neoplasm of colon [facility] Start: 07-14-2025 Glaucoma screening Diabetes: R etinopathy Screening [facility] Start: 05-28-2025 End: 05-28-2025 Patient encounter procedure 05/28/2025 10:30 AM EST Office Visit [facility] [address] [place] [address] Rain Souza MD [address] [place] [address] [facility] Start: 05-13-2025 Glaucoma screening Diabetes: R etinopathy Screening [facility] Start: 05-01-2025 Hemoglobin A1c measurement Diabetes: Hemoglobin A1C [facility] Start: 04-29-2025 End: 04-29-2025 Patient encounter procedure 04/29/2025 6:00 PM EDT Office Visit [facility] [address] [place] [phone] Mckayla Blas, FRETTED INSTRUMENT INSPECTOR [address] [place] [phone] [facility] Start: 03-09-2025 Influenza vaccination N [facility] Start: 01-28-2025 End: 01-28-2025 Patient encounter procedure 01/28/2025 10:50 AM EDT Office Visit [facility] [address] [place] [address] Rain Souza MD [address] [place] [address] [facility] Start: 01-26-2025 End: 01-26-2025 Patient encounter procedure 01/26/2025 6:00 PM EDT Office Visit [facility] [address] [place] [phone] Mckayla Blas, FRETTED INSTRUMENT INSPECTOR [address] [place] [phone] [facility] Start: 01-16-2025 Medicare Annual Wellness (AWV) Medicare Annual Wellness (AWV) [facility] Start: 01-07-2025 Hemoglobin A1c measurement Diabetes: Hemoglobin A1C [facility] Start: 12-15-2024 End: 12-27-2025 MG Breast - bilateral Screening Bilateral screening mammogram Imaging Routine Encounter for screening mammogram for malignant neoplasm of breast Expected: 12/15/2024 (Approximate), Expires: 12/27/2025 [facility] Work Phone: Comment on above: Expected: 12/15/2024 (Approximate), Expires: 12/27/2025 Start: 12-13-2024 Screening for malignant neoplasm of breast Mammogram [facility] Start: 11-11-2024 Urine screening for protein Diabetes: Urine Protein Screening [facility] Start: 10-27-2024 End: 10-27-2024 Patient encounter procedure 10/27/2024 2:00 PM EDT Office Visit [facility] [address] [place] [phone] Mckayla Blas, SILVANO [address] [place] [phone] [facility] Start: 10-08-2024 End: 10-08-2024 Patient encounter procedure 10/08/2024 11:20 AM EDT Office Visit [facility] [address] [place] [address] Rain Souza MD [address] [place] [address] [facility] Start: 08-27-2024 End: 08-27-2024 Patient encounter procedure 08/27/2024 5:30 PM EST Office Visit [facility] [address] [place] [phone] Mckayla Blas, SILVANO [address] [place] [phone] [facility] Start: 08-27-2024 End: 08-27-2025 25-hydroxyvitamin D3 [Mass/volume] in Serum or Plasma Vitamin D 25 hydroxy Lab Routine Vitamin deficiency Expected: 08/27/2024 (Approximate), Expires: 08/27/2025 [facility] Comment on above: Expected: 08/27/2024 (Approximate), Expires: 08/27/2025 Start: 08-27-2024 Hemoglobin A1c measurement Diabetes: Hemoglobin A1C [facility] Start: 08-27-2024 End: 08-27-2025 Hepatic function 2000 panel - Serum or Plasma Hepatic function panel Lab Routine Hyperlipidemia, unspecified (CMS/HCC) Expected: 08/27/2024 (Approximate), Expires: 08/27/2025 [facility] Comment on above: Expected: 08/27/2024 (Approximate), Expires: 08/27/2025 Start: 08-27-2024 End: 08-27-2025 Lipid 1996 panel - Serum or Plasma Lipid panel Lab Routine Mixed hyperlipidemia (CMS/HCC) Expected: 08/27/2024 (Approximate), Expires: 08/27/2025 [facility] Work Phone: Comment on above: Expected: 08/27/2024 (Approximate), Expires: 08/27/2025 Start: 08-27-2024 End: 08-27-2025 Microalbumin/Creatini ne panel in random Urine Microalbumin / creatinine, urine ratio Lab Routine Primary hypertension (CMS/HCC) Type 2 diabetes mellitus with complication, with long-term current use of insulin ([facility]/HCC) Expected: 08/27/2024 (Approximate), Expires: 08/27/2025 [facility] Comment on above: Expected: 08/27/2024 (Approximate), Expires: 08/27/2025 Start: 08-27-2024 End: 08-27-2025 Urate [Mass/volume] in Serum or Plasma Uric acid Lab Routine Gout, unspecified cause, unspecified chronicity, unspecified site Expected: 08/27/2024 (Approximate), Expires: 08/27/2025 [facility] Comment on above: Expected: 08/27/2024 (Approximate), Expires: 08/27/2025 Start: 08-27-2024 End: 08-27-2025 Urinalysis complete panel - Urine Urinalysis with reflex microscopic (clean catch) Lab Routine Primary hypertension ([facility]) Type 2 diabetes mellitus with complication, with long-term current use of insulin ([facility]) Tobacco user Gout, unspecified cause, unspecified chronicity, unspecified site Expected: 08/27/2024 (Approximate), Expires: 08/27/2025 [facility] Comment on above: Expected: 08/27/2024 (Approximate), Expires: 08/27/2025 Start: 08-26-2024 End: 08-26-2024 Patient encounter procedure 08/26/2024 10:30 AM EST Office Visit [facility] [address] [place] [address] Rain Souza MD [address], [address] [place] [address] [facility] Start: 07-14-2024 End: 07-14-2024 Patient encounter procedure 07/14/2024 6:30 PM EST Office Visit [facility] [address] [place] [address] Mckayla Blas NP [address] [place] [address] [facility] Start: 07-14-2024 End: 07-14-2024 Patient encounter procedure 07/14/2024 10:10 AM EST Office Visit [facility] [address] [place] [address] Rain Souza MD [address], [address] [place] [address] [facility] Start: 06-06-2024 Influenza vaccination Influenza Vacc ine (#1) [facility] Comment on above: Postponed from 03/09 (Patient Refused) Start: 05-27-2024 End: 05-27-2024 Patient encounter procedure 05/27/2024 9:50 AM EST Office Visit [facility] [address] [place] [address] Rain Souza MD [address], [address] [place] [address] [facility] Start: 05-17-2024 Hemoglobin A1c measurement Diabetes: Hemoglobin A1C [facility] Start: 05-15-2024 End: 05-15-2024 Chart abstracting 05/15/2024 Abstract [facility] [address] [place] [address] Rain Souza MD [address], [address] [place] [address] [facility] Start: 05-15-2024 End: 05-15-2024 Patient encounter procedure 05/15/2024 11:20 AM EST Office Visit [facility] [address] [place] [address] Rain Souza MD [address], [address] [place] [address] [facility] Start: 04-17-2024 End: 04-17-2024 Patient encounter procedure 04/17/2024 3:40 PM EDT Office Visit [facility] [address] [place] [address] Mckayla Blas NP [address] [place] [address] [facility] Start: 04-14-2024 End: 04-14-2024 Patient encounter procedure 04/14/2024 11:00 AM EDT Office Visit [facility] [address] [place] [address] Mckayla Blas NP [address] [place] [id number] Arrived [facility] Comment on above: Arrived Start: 03-09-2024 Influenza vaccination Influenza Vacc ine (#1) [facility] Start: 02-19-2024 Hemoglobin A1c measurement Diabetes: Hemoglobin A1C [facility] Start: 11-24-2023 Urine screening for protein Diabetes: Urine Protein Screening [facility] Start: 11-23-2023 Screening for malignant neoplasm of breast Mammogram [facility] Start: 10-15-2023 End: 10-15-2023 Patient encounter procedure 10/15/2023 4:30 PM EDT Office Visit [facility] [address] [place] [address] Mckayla Blas NP [address] [place] [address] [facility] Start: 08-09-2023 Hemoglobin A1c measurement Diabetes: Hemoglobin A1C [facility] Start: 05-27-2021 Glaucoma screening Diabetes: R etinopathy Screening [facility] Start: 03-09-2020 Influenza vaccination Flu vacc ine (Season Ended) [place], [place] Start: 10-07-2018 Screening for malignant neoplasm of cervix [facility] Start: 2010 Lipid panel Lipid screen [place], [place] Start: 2000 Screening for malignant neoplasm of cervix HPV/Cotest [facility] Start: 1991 Screening for malignant neoplasm of cervix Cervical cancer screen [place], [place] Start: 1989 DTaP/Tdap/Td vaccine (1 - Tdap) DTaP/Tdap/Td vaccine ( - Tdap) [place], [place] Start: 1985 HIV screening HIV screen [place], [place] Start: 1970 Medicare Annual Wellness (AWV) Medicare Annual Wellness (AWV) [facility] Start: 1970 Screening for malignant neoplasm of colon [facility] BLOOD CULTURE 1 BLOOD CULTURE 1 Lab Routine 12/04/2024 4:44 PM EDT [facility] BLOOD CULTURE 2 BLOOD CULTURE 2 Lab Routine 12/04/2024 5:28 PM EDT [facility] Immunizations Immunization Date Immunization Notes Care Provider Judie lucas 05-18-2023 influenza, injectabl e, quadrivalent, contains preservative Mckayla Blas [employer]RETTED INSTRUMENT INSPECTOR Work Phone: [facility] 05-18-2023 influenza virus vacc ine, unspecified formulation Rain Souza MD Work Phone: [facility] 07-19-2021 SARS-CoV-2 (COVID-19 ) mRNA BNT-162b2 vax HZO [facility] 10-28-2020 SARS-CoV-2 (COVID-19 ) mRNA BNT-162b2 vax HZO [facility] 10-08-2020 SARS-CoV-2 (COVID-19 ) mRNA BNT-162b2 vax HZO [facility] 04-16-2017 influenza virus vacc ine, H5N1, A/ (national stockpile) Mckayla Blas FRETTED INSTRUMENT INSPECTOR Work Phone: [facility] 04-16-2017 influenza virus vacc ine, unspecified formulation Rain Souza MD Work Phone: [facility] 04-16-2017 influenza, unspecifi ed formulation Elbert ARAUZ [facility] 04-16-2017 pneumococcal polysaccharide vaccine, 23 valent Rain Souza MD Work Phone: [facility] 05-10-2016 influenza virus vacc ine, H5N1, A/ (national stockpile) Mckayla Blas FRETTED INSTRUMENT INSPECTOR Work Phone: [facility] 05-10-2016 influenza virus vacc ine, unspecified formulation Rain Souza MD Work Phone: [facility] 05-10-2016 influenza, unspecifi ed formulation Elbert ARAUZ [facility] 05-02-2013 influenza virus vacc ine, whole virus Rain Souza MD Work Phone: [facility] 05-02-2013 influenza, injectabl e, quadrivalent, contains preservative Mckayla Blas FRETTED INSTRUMENT INSPECTOR Work Phone: [facility] 05-02-2013 influenza, whole Elbert BARBARA ERS [facility] 01-29-1998 measles, mumps and rubella virus vaccine Rain Souza MD Work Phone: [facility] Payers Date Payer Category Payer Unknown [id number] 2023 Medicare (Managed Care) 1.2. [id number] 2023 Private Health Insurance [facility] [id number] 2023-Present [address] [address] [place] [address] [id number]. [id number] 2023 Medicare [id number] 2018 Medicaid MEDICAID [facility] [id number] 2018-Present [phone] [address] [place] [address] Medicaid [id number] 2013 Medicare [id number] [id number]. [id number] 1970 Unknown [id number] 2.16.840.1.564736.3.579.2. 647 1970 Unknown [id number] 2.16.840.1.214554.3.579.2. 593 1970 Unknown [id number] 2.16.840.1.692696.3.579.2. 593 1970 Unknown [id number] 2.16.840.1.446865.3.579.2. 593 1970 Unknown [id number] 2.16.840.1.208456.3.579.2. 593 1970 Unknown [id number] 2.16.840.1.664139.3.579.2. 593 1970 Unknown [id number] 2.16.840.1.049456.3.579.2. 593 1970 Unknown [id number] 2.16.840.1.096238.3.579.2. 593 1970 Unknown [id number] 2.16.840.1.727233.3.579.2. 593 1970 Unknown [id number] 2.16.840.1.793653.3.579.2. 593 1970 Unknown [id number] 2.16.840.1.584348.3.579.2. 593 1970 Unknown [id number] 2.16.840.1.080841.3.579.2. 593 1970 Unknown [id number] 2.16.840.1.331648.3.579.2. 593 1970 Unknown [id number] 2.16.840.1.689729.3.579.2. 593 1970 Unknown [id number] 2.16.840.1.521122.3.579.2. 593 1970 Unknown [id number] 2.16.840.1.622401.3.579.2. 593 1970 Unknown [id number] 2.16.840.1.266290.3.579.2. 593 1970 Unknown [id number] 2.16.840.1.865035.3.579.2. 593 1970 Unknown [id number] 2.16.840.1.694036.3.579.2. 593 1970 Unknown [id number] 2.16.840.1.010435.3.579.2. 593 1970 Unknown [id number] 2.16.840.1.623045.3.579.2. 593 1970 Unknown [id number] 2.16.840.1.986620.3.579.2. 593 1970 Unknown [id number] 2.16.840.1.722176.3.579.2. 593 1970 Unknown [id number] 2.16840.1.362685.3.579.2. 727 1970 Unknown [id number] 2.16.840.1.983997.3.579.2. 727 1970 Unknown [id number] 2.16.840.1.482505.3.579.2. 1259 1970 Unknown [id number] 2.16.840.1.881117.3.579.2. 1259 1970 Unknown [id number] 2.16.840.1.724546.3.579.2. 1259 1970 Unknown [id number] 2.16.840.1.443918.3.579.2. 1259 1970 Unknown [id number] 2.16.840.1.607155.3.579.2. 1259 1970 Unknown [id number] 2.16.840.1.412884.3.579.2. 1259 1970 Unknown [id number] 2.16.840.1.875536.3.579.2. 1259 1970 Unknown [id number] 2.16.840.1.251000.3.579.2. 1259 1970 Unknown [id number] 2.16.840.1.284918.3.579.2. 1259 1959 Medicaid [id number] 1959 Private Health Insurance [id number] 1959 Unknown [id number] 2.16.840.1.550901.19 Social History Date Type Detail Facility Start: 02-17-2014 End: 01-29-2025 Tobacco smoking status NHIS Current every day smoker [place] Start: 02-17-1994 History of tobacco use Cigarette Smo ker [place] Start: 02-17-2014 End: 08-26-2024 Cigarettes smoked current (pack per day) - Reported [place] Start: 02-17-2014 Alcohol intake Current drinke r of alcohol (finding) [place] Start: 02-17-2014 Alcohol Comment Rare [place], [place] Start: 1970 Sex Assigned At Not on file [place] Exposure to SARS-CoV -2 (event) Unable to assess [place] Start: 02-06-2022 Tobacco smoking status Smoker (findi ng) [facility] Start: 07-10-2023 End: 08-26-2024 Sex Assigned At Female [facility] Start: 11-15-2022 End: 06-11-2024 Tobacco smoking status Heavy tobacco smoker (finding) [facility] Start: 07-10-2023 End: 01-29-2025 Tobacco use and exposure Smokeless tobacco non-user [facility] Start: 07-10-2023 End: 01-29-2025 Alcohol intake Lifetime non-drinker (finding) [facility] Within the last year , have you been afraid of your partner or ex-partner? No [facility] Do you belong to any clubs or organizations such as denominational groups, unions, fraternal [...] Only a little [facility] (I/We) worried whealma er (my/our) food would run out before [...] Equipment Origin al Text Equipment Identifier Dates [id number] Start: 01-18-2024 USE TO TEST BLOO D SUGAR 4 TIMES DAILY [id number] Start: 07-07-2024 Functional Status Date Assessment Result Facility 01-26-2025 Patient Health Quest ionnaire 2 item (PHQ-2) [Reported] [facility] 01-26-2025 Trouble falling or s taying asleep, or sleeping too much Not at all 01/26/2025 4:13 PM EDT Mychart, Generic Not at all [facility] 01-26-2025 Feeling tired or hav ing little energy Not at all 01/26/2025 4:13 PM EDT Mychart, Generic Not at all [facility] 01-26-2025 Poor appetite or overeating Not at all 01/26/2025 4:13 PM EDT Mychart, Generic Not at all [facility] 01-26-2025 Feeling bad about yourself-or that you are a failure or have let yourself or your family down Not at all 01/26/2025 4:13 PM EDT Mychart, Generic Not at all [facility] 01-26-2025 Trouble concentratin g on things, such as reading the newspaper or watching television Not at all 01/26/2025 4:13 PM EDT Mychart, Generic Not at all [facility] 01-26-2025 Moving or speaking s o slowly that other people could have noticed. Or the opposite - being so fidgety or restless that you have been moving around a lot more than usual Not at all 01/26/2025 4:13 PM EDT Mychart, Generic Not at all [facility] 01-26-2025 Thoughts that you wo uld be better off , or of hurting yourself in some way Not at all 01/26/2025 4:13 PM EDT Mychart, Generic Not at all [facility] 06-11-2024 Functional Status N/A [facility] 11-15-2022 Functional Status N/A [facility] 02-06-2022 Functional Status N/A [facility] Clinical Notes 01-19-2022 to 02-04-2025 Rain Souza MD - 01/29/2025 9:40 AM [place] Blas NP - 01/26/2025 6:46 PM Savannah Blas NP - 01/26/2025 6:46 PM Savannah Blas NP - 01/26/2025 6:46 PM EDTPatient Instructions Note Date & Type Note Facility 02-04-2025 Note Please let her know her ECHO showed some improvement in the left side wall thickness, it was severely enlarged, now it is moderate. Important for good BP control to continue to improve this. Everything else looks good. Follow-up as planned in 6 months. Thanks! [facility] 01-29-2025 History of Present illness Narrative Images from [...] 25 mg, Oral, 2 times daily HYDROcodone-acetaminophen (Hurlock) 5-325 MG tablet 1 tablet, 3 times [...] MOUTH TWICE A DAY FOR 14 DAYS Tirzepatide (Mounjaro) 15 MG/0.5ML solution auto-injector INJECT 15MG SUBCUTANEOUSLY ONCE A WEEK varenicline (CHANTIX) 1 mg, Oral, 2 times daily, Take with full glass of water. ALLERGIES: No Known Allergies Past Medical History: Diagnosis Date Abnormal chest CT Albuminuria 09/17/2023 Angiomyolipoma Anxiety and depression 07/10/2023 Asthma ([facility]) 07/10/2023 Body mass index (BMI) 50.0-59.9, adult ([facility]) Cellulitis of left lower extremity Cervical cancer ([facility]) 09/17/2023 Chronic pain of both knees 09/17/2023 COPD (chronic obstructive pulmonary disease) ([facility]) 07/10/2023 COPD exacerbation ([facility]) 09/17/2023 Decreased functional mobility 09/17/2023 Diabetic neuropathy ([facility]) 07/10/2023 Dietary counseling and surveillance Edema 07/10/2023 Elevated sed rate Elevated WBC count Essential (primary) hypertension GERD (gastroesophageal reflux disease) 09/17/2023 Hyperlipidemia 09/17/2023 Hypertension 07/10/2023 Insomnia 09/17/2023 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 ([facility]) Lower extremity edema 09/17/2023 Mixed hyperlipidemia Morbid (severe) obesity due to excess calories ([facility]) Obstructive sleep apnea 07/10/2023 PAD (peripheral artery disease) 09/17/2023 Pancreatitis ([facility]) 09/17/2023 Pneumonia 09/17/2023 Proteinuria, unspecified Pulmonary hypertension ([facility]) 09/17/2023 Radiculopathy, lumbar region 09/17/2023 Tobacco user 09/17/2023 Type 2 diabetes mellitus with complication, with long-term current use of insulin ([facility]) 07/10/2023 Unilateral primary osteoarthritis, right [...] % 90 % 84 % Temp 98 F 98.7 F 98 F 98.5 F Resp 16 18 16 18 20 20 16 Height (in) 5' 7 5' 7 5' 7 5' 7 Weight (lb) 362 365.9 357 360.8 374.4 360 Visit Report Report Report Report Report Report Report Report ASSESSMENT AND PLAN: Assessment/Plan Diagnoses and all orders for this visit: Encounter for dietary consultation Type 2 diabetes mellitus with hyperglycemia, with long-term current use of insulin (HCC) - POCT glycosylated hemoglobin (Hb A1C) docked [...] (BMI) of 50.0 to 59.9 in adult ([facility]) Diet and exercise reviewed with the patient Follow up in about 4 months (around 06/01/2025). 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 Mitzi Macias is a 54 y.o. female presents with chief complaint of Medicare Annual Wellness Visit Initial HPI: Diet:tries to stay balanced Activity:- limited [...] 25 mg, Oral, 2 times daily HYDROcodone-acetaminophen (Hurlock) 5-325 MG tablet 1 tablet, 3 times [...] MOUTH TWICE A DAY FOR 14 DAYS Tirzepatide (Mounjaro) 15 MG/0.5ML solution [...] 09/17/2023 Angiomyolipoma Anxiety and depression 07/10/2023 Asthma (HCC) 07/10/2023 Body mass index (BMI) 50.0-59.9, adult (CMS-HCC) Cellulitis of left lower extremity Cervical cancer ([facility]) 09/17/2023 Chronic pain of both knees 09/17/2023 COPD (chronic obstructive pulmonary disease) ([facility]) 07/10/2023 COPD exacerbation ([facility]) 09/17/2023 Decreased functional mobility 09/17/2023 Diabetic neuropathy ([facility]) 07/10/2023 Dietary counseling and surveillance Edema 07/10/2023 Elevated sed rate Elevated WBC count Essential (primary) hypertension GERD (gastroesophageal reflux disease) 09/17/2023 Hyperlipidemia 09/17/2023 Hypertension 07/10/2023 Insomnia 09/17/2023 detention (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 ([facility]) Lower extremity edema 09/17/2023 Mixed hyperlipidemia Morbid (severe) obesity due to excess calories ([facility]) Obstructive sleep apnea 07/10/2023 PAD (peripheral artery disease) 09/17/2023 Pancreatitis ([facility]) 09/17/2023 Pneumonia 09/17/2023 Proteinuria, unspecified Pulmonary hypertension ([facility]) 09/17/2023 Radiculopathy, lumbar region 09/17/2023 Tobacco user 09/17/2023 Type 2 diabetes mellitus with complication, with long-term current use of insulin ([facility]) 07/10/2023 Unilateral primary osteoarthritis, right [...] Size: Large adult) Pulse 81 Temp 98.5 F (Temporal) Resp 20 Wt 374 lb 6.4 oz SpO2 90% BMI 58.64 kg/m Smoking Status Every Day BSA 2.83 m Physical Exam Vitals and nursing note [...] This Visit Diabetic neuropathy (HCC) Continue with lyricjuvenal pain mgmt is prescribing OARRS reviewed Fu in 3 months Goal: tighter glucose control, this has been improving, latest A1c is 7.4%!!! 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 Hypertension Please check blood [...] on 10/08/2024 Under the care of dr souza for mgmt of DM Complications: DN, nephropathy, [...] amitriptyline (Elavil) 25 MG tablet Pulmonary hypertension ([facility]) Has seen [facility] Cardiology Hyperlipidemia On statin therapy Check [...] Morbid (severe) obesity due to excess calories ([facility]) Discussed with patient their BMI [...] Relevant Medications simvastatin (Zocor) 10 MG tablet Associated Problem(s): Diabetic neuropathy (HCC) Continue with cintia hudson is prescribing OARRS reviewed Fu in 3 months Goal: tighter glucose control, this has been improving, latest A1c is 7.4%!!! Associated Problem(s): Pulmonary hypertension (HCC) Has seen [facility] Cardiology Associated Problem(s): Hypertension Please check blood pressure daily and record DASH diet Limit caffeine Take medication as directed Contact office if chest pain, pressure, dizziness, shortness of breath, swelling legs Recommend slow position changes Current meds: hydralazine, lisinopril, Associated Problem(s): Chronic diastolic heart failure (HCC) Current meds; asa, farxiga, lasix, hydralazine, lisinopril, Follows with [facility] Reviewed 01/06/25 notes Associated Problem(s): Gastro-esophageal reflux disease without esophagitis Recommendations: freq small meals, nothing to eat or drink at least 2 hours prior to bed, limit caffeine, alcohol, as well as spicy foods Meds to limit or avoid if possible: NSAIDS Elevate HOB if possible Current meds: ompeprazole Associated Problem(s): Type 2 diabetes mellitus with [...] on 10/08/2024 Under the care of dr souza for mgmt of DM Complications: DN, nephropathy, leg ulcers Associated Problem(s): Hyperlipidemia On statin therapy Check labs yearly and prn dose changes Associated Problem(s): Encounter for subsequent annual wellness visit [...] a yearly basis documented in this encounter [facility] 01-26-2025 Instructions Mckayla Blas NP - 01/26/2025 6:00 PM EDT [facility] call the [facility] to schedule your mammogram: [phone]- ext [phone] documented in this encounter [facility] 01-06-2025 Note Cardiovascular Medic [facility] SUBJECTIVE Chief Complaint Patient presents with Congestive Heart Failure Hypertension Hyperlipidemia Mitzi Macias is a 54 y.o. female here for follow-up. PMHx: HFpEF, HTN, HLD, DM, longstanding heavy smoker, COPD, DANIEL, morbid obesity HPI 01/06/2025 Since last seen she was admitted to [facility] for AMS on 12/05/2024. She was treated [...] syndrome (CMS/HCC) Decreased functional mobility Diabetic neuropathy ([facility]/HCC) Easy bruising GERD (gastroesophageal reflux disease) [...] complication, with long-term current use of insulin ([facility]/HCC) Unilateral primary osteoarthritis, right hip Vaginal yeast infection Venous insufficiency Bad odor of urine Critical limb ischemia of right lower extremity ([facility]/HCC) Hyperpigmentation of skin 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 2 diabetes mellitus ([facility]/HCC) Myelolipoma of adrenal gland Venous ulcer of right leg ([facility]/HCC) Chronic diastolic heart failure ([facility]) Antibiotic-induced yeast infection Cellulitis of left lower extremity Cigarette nicotine dependence without complication Fever 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 ([facility]) detention current use of inhaled steroid Vitamin D deficiency, unspecified Vitamin deficiency Past Medical History: Diagnosis Date COPD (chronic obstructive pulmonary disease) ([facility]/HCC) Diabetes mellitus ([facility]) Hyperlipidemia Hypertension Sleep apnea Family History Problem [...] kg (376 lb) SpO2 93% BMI 58.89 kg/m??? Smoking Status Every Day BSA 2.84 m??? Medications: Current Outpatient Medications: amitriptyline (Elavil) 50 [...] , Rfl: ergocalciferol (Vitamin D-2) 1.25 MG (64372 Units) capsule, Take 1.25 mg by mouth., [...] and at bedtime., Disp: , Rfl: HYDROcodone-acetaminophen (Hurlock) 5-325 mg tablet, TAKE 1 TABLET BY MOUTH THREE TIMES A DAY NEEDED FOR PAIN MUST LAST 30 DAYS, Disp: , Rfl: insulin aspart (NovoLOG) 100 unit/mL (3 mL) injection pen, Novolog Flexpen U-100 Insulin aspart 100 unit/mL (3 mL) subcutaneous, Disp: , Rfl: insulin glargine (Lantus Solostar U-100 Insulin) 100 unit/mL (3 mL) injection pen (more content not included)... [facility] 01-06-2025 Note Patient is here toda y for a 6 month follow up. Patient states she just came from wound care for an open wound on here right leg and left leg. Patient states she has had a lot of leg swelling. 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 Patient denies chest pain, dizziness, palpitations. Patient complains of fatigue and leg swelling. Review of Systems Constitutional: Positive for malaise/fatigue and weight gain. Cardiovascular: Positive for leg swelling. [facility] 12-09-2024 History of Present illness Narrative Associated [...] bad light. She was ultimately taken to [facility] ER, no tox screen was done that [...] 25 mg, Oral, 2 times daily HYDROcodone-acetaminophen (Hurlock) 5-325 MG tablet 1 tablet, 3 times [...] CT Albuminuria 09/17/2023 Angiomyolipoma Anxiety and depression ([facility]) 07/10/2023 Asthma 07/10/2023 Body mass index (BMI) 50.0-59.9, adult ([facility]) Cellulitis of left lower extremity Cervical cancer ([facility]) 09/17/2023 Chronic pain of both knees 09/17/2023 COPD (chronic obstructive pulmonary disease) ([facility]) 07/10/2023 COPD exacerbation ([facility]) 09/17/2023 Decreased functional mobility 09/17/2023 Diabetic neuropathy ([facility]) 07/10/2023 Dietary counseling and surveillance Edema 07/10/2023 Elevated sed rate Elevated WBC count Essential (primary) hypertension [place] GERD (gastroesophageal reflux disease) 09/17/2023 Hyperlipidemia ([facility] 09/17/2023 Hypertension ([facility] 07/10/2023 Insomnia 09/17/2023 detention (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 ([facility] Lower extremity edema 09/17/2023 Mixed hyperlipidemia ([facility] Morbid (severe) obesity due to excess calories ([facility] Obstructive sleep apnea 07/10/2023 PAD (peripheral artery disease) ([facility] 09/17/2023 Pancreatitis 09/17/2023 Pneumonia 09/17/2023 Proteinuria, unspecified Pulmonary hypertension ([facility] 09/17/2023 Radiculopathy, lumbar region 09/17/2023 Tobacco user 09/17/2023 Type 2 diabetes mellitus with complication, with long-term current use of insulin ([facility] 07/10/2023 Unilateral primary osteoarthritis, right hip 09/17/2023 [...] Problem List Items Addressed This Visit Hypertension ([facility]) Please check blood pressure daily and record DASH diet Limit caffeine Take medication as directed Contact office if chest pain, pressure, dizziness, shortness of breath, swelling legs Recommend slow position changes Current meds: hydralazine, lisinopril, Type 2 diabetes mellitus with complication, with long-term current use of insulin ([facility]) Check blood sugars daily, notify [...] secondary to her steroids Anxiety and depression ([facility]) Current meds: elavil, duloxtine, COPD exacerbation ([facility]) Recent ER visit for unresponsiveness , found to have fever and elevated WBC Sent home with steroids and atb Breathing is better and she feels back to her normal baseline Does have home O2, she is not wearing this today Pulmonary hypertension ([facility]) Has seen [facility] Cardiology Morbid (severe) obesity due to excess calories ([facility]) Discussed with patient their BMI [...] Finish atb's Associated Problem(s): Anxiety and depression ([facility]) Current meds: elavil, duloxtine, Associated Problem(s): Type 2 diabetes mellitus with complication, with long-term current use of insulin ([facility]) Check blood sugars daily, notify [...] Associated Problem(s): Pulmonary hypertension (CMS/HCC) Has seen [facility] Cardiology Associated Problem(s): Hypertension (CMS/HCC) Please check [...] wearing this today documented in this encounter [facility] 12-09-2024 Instructions Mckayla Blas NP - 12/09/2024 10:00 AM EDT Keep appt with wound care today Keep fu with me, sooner if needed documented in this encounter [facility] 10-27-2024 History of Present illness Narrative Associated [...] 25 mg, Oral, 2 times daily HYDROcodone-acetaminophen (Hurlock) 5-325 MG tablet 1 tablet, 3 times [...] CT Albuminuria 09/17/2023 Angiomyolipoma Anxiety and depression ([facility] 07/10/2023 Asthma 07/10/2023 Body mass index (BMI) 50.0-59.9, adult ([facility] Cellulitis of left lower extremity Cervical cancer ([facility]) 09/17/2023 Chronic pain of both knees 09/17/2023 COPD (chronic obstructive pulmonary disease) ([facility] 07/10/2023 COPD exacerbation ([facility] 09/17/2023 Decreased functional mobility 09/17/2023 Diabetic neuropathy ([facility] 07/10/2023 Dietary counseling and surveillance Edema 07/10/2023 Elevated sed rate Elevated WBC count Essential (primary) hypertension ([facility] GERD (gastroesophageal reflux disease) 09/17/2023 Hyperlipidemia ([facility] 09/17/2023 Hypertension ([facility] 07/10/2023 Insomnia 09/17/2023 detention (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 ([facility] Lower extremity edema 09/17/2023 Mixed hyperlipidemia ([facility] Morbid (severe) obesity due to excess calories ([facility] Obstructive sleep apnea 07/10/2023 PAD (peripheral artery disease) ([facility] 09/17/2023 Pancreatitis 09/17/2023 Pneumonia 09/17/2023 Proteinuria, unspecified Pulmonary hypertension ([facility] 09/17/2023 Radiculopathy, lumbar region 09/17/2023 Tobacco user 09/17/2023 Type 2 diabetes mellitus with complication, with long-term current use of insulin ([facility] 07/10/2023 Unilateral primary osteoarthritis, right hip 09/17/2023 [...] Diabetic neuropathy (CMS/HCC) - Primary Continue with cintia hudson mgmt [...] complication, with long-term current use of insulin ([facility]) Check blood sugars daily, notify [...] 81 MG chewable tablet Anxiety and depression ([facility]) Current meds: elavil, duloxtine, Relevant Medications DULoxetine (Cymbalta) [address] capsule Bilateral lower extremity edema Limit sodium , elevate legs, furosemide Relevant Medications furosemide (Lasix) 20 MG tablet potassium chloride ER (Micro-K) 10 MEQ ER capsule furosemide (Lasix) 40 MG tablet Insomnia Relevant Medications amitriptyline (Elavil) 25 MG tablet PAD (peripheral artery disease) ([facility]) Asa, statin Quit smoking BP [...] MG tablet Venous ulcer of right leg ([facility]) Continue with wound care and management of wound, currently they are using dakins Wound is improving Morbid (severe) obesity due to excess calories ([facility]) Discussed with patient their BMI [...] mounjaro for DM Chronic diastolic heart failure ([facility]) Current meds; asa, farxiga, lasix, hydralazine, lisinopril, Follows with cardilogy Reviewed 08/02 notes Cigarette nicotine dependence without complication Is currently using chantix, and is doing well, less desire, smoking less Vitamin D deficiency, unspecified Relevant Medications ergocalciferol (Vitamin D2) 1.25 MG (09041 UT) capsule Gastro-esophageal reflux disease without esophagitis Relevant Medications omeprazole (PriLOSEC) [address] capsule Other Visit Diagnoses Type 2 diabetes mellitus with unspecified complications Relevant Medications dapagliflozin (Farxiga) 10 MG Associated Problem(s): Cigarette nicotine dependence without complication Is currently using chantix, and is doing well, less desire, smoking less Associated Problem(s): Anxiety and depression ([facility]) Current meds: elavil, duloxtine, Associated Problem(s): Type 2 diabetes mellitus with complication, with long-term current use of insulin ([facility]) Check blood sugars daily, notify [...] A1c is 7.4%!!! documented in this encounter [facility] 10-27-2024 Instructions Mckayla Blas NP - 10/27/2024 2:00 PM EDT No dose changes in meds You will be due for mammogram I will send order to [facility], they should call you to schedule If no call, please call [phone] ext [phone] documented in this encounter [facility] 10-08-2024 History of Present illness Narrative Images [...] or chew. ergocalciferol (Vitamin D2) 1.25 MG (78091 UT) capsule TAKE 1 CAPSULE BY MOUTH [...] 25 mg, Oral, 2 times daily HYDROcodone-acetaminophen (Hurlock) 5-325 MG tablet 1 tablet, 3 times [...] CT Albuminuria 09/17/2023 Angiomyolipoma Anxiety and depression ([facility]) 07/10/2023 Asthma ([facility]) 07/10/2023 Body mass index (BMI) 50.0-59.9, adult ([facility]) Cellulitis of left lower extremity Cervical cancer ([facility]) 09/17/2023 Chronic pain of both knees 09/17/2023 COPD (chronic obstructive pulmonary disease) ([facility]) 07/10/2023 COPD exacerbation [place] 09/17/2023 Decreased functional mobility 09/17/2023 Diabetic neuropathy ([facility] 07/10/2023 Dietary counseling and surveillance Edema 07/10/2023 Elevated sed rate Elevated WBC count Essential (primary) hypertension ([facility] GERD (gastroesophageal reflux disease) 09/17/2023 Hyperlipidemia ([facility] 09/17/2023 Hypertension ([facility] 07/10/2023 Insomnia 09/17/2023 detention (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 ([facility] Lower extremity edema 09/17/2023 Mixed hyperlipidemia ([facility] Morbid (severe) obesity due to excess calories ([facility] Obstructive sleep apnea 07/10/2023 PAD (peripheral artery disease) ([facility]) 09/17/2023 Pancreatitis 09/17/2023 Pneumonia 09/17/2023 Proteinuria, unspecified Pulmonary hypertension ([facility] 09/17/2023 Radiculopathy, lumbar region 09/17/2023 Tobacco user 09/17/2023 Type 2 diabetes mellitus with complication, with long-term current use of insulin ([facility] 07/10/2023 Unilateral primary osteoarthritis, right hip 09/17/2023 [...] hyperglycemia, with long-term current use of insulin ([facility]) - POCT glucose manually resulted [...] months (around 02/07/2025). documented in this encounter [facility] 08-27-2024 History of Present illness Narrative Associated [...] or chew. ergocalciferol (Vitamin D2) 1.25 MG (85670 UT) capsule TAKE 1 CAPSULE BY MOUTH [...] 25 mg, Oral, 2 times daily HYDROcodone-acetaminophen (Hurlock) 5-325 MG tablet 1 tablet, 3 times [...] CT Albuminuria 09/17/2023 Angiomyolipoma Anxiety and depression ([facility] 07/10/2023 Asthma ([facility] 07/10/2023 Body mass index (BMI) 50.0-59.9, adult ([facility] Cellulitis of left lower extremity Cervical cancer ([facility]) 09/17/2023 Chronic pain of both knees 09/17/2023 COPD (chronic obstructive pulmonary disease) ([facility] 07/10/2023 COPD exacerbation ([facility] 09/17/2023 Decreased functional mobility 09/17/2023 Diabetic neuropathy ([facility] 07/10/2023 Dietary counseling and surveillance Edema 07/10/2023 Elevated sed rate Elevated WBC count Essential (primary) hypertension ([facility] GERD (gastroesophageal reflux disease) 09/17/2023 Hyperlipidemia ([facility]) 09/17/2023 Hypertension ([facility]) 07/10/2023 Insomnia 09/17/2023 detention (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 ([facility] Lower extremity edema 09/17/2023 Mixed hyperlipidemia ([facility]) Morbid (severe) obesity due to excess calories ([facility] Obstructive sleep apnea 07/10/2023 PAD (peripheral artery disease) ([facility]) 09/17/2023 Pancreatitis 09/17/2023 Pneumonia 09/17/2023 Proteinuria, unspecified Pulmonary hypertension ([facility]) 09/17/2023 Radiculopathy, lumbar region 09/17/2023 Tobacco user 09/17/2023 Type 2 diabetes mellitus with complication, with long-term current use of insulin ([facility]) 07/10/2023 Unilateral primary osteoarthritis, right [...] List Items Addressed This Visit Diabetic neuropathy ([facility]) Continue with cintia hudson mgmt is prescribing OARRS reviewed Fu in 3 months Goal: tighter glucose control Hypertension ([facility]) Please check blood pressure daily [...] complication, with long-term current use of insulin ([facility]) Check blood sugars daily, notify [...] / creatinine, urine ratio Anxiety and depression ([facility]) - Primary Current meds: elavil, [...] PPI Malignant neoplasm of cervix uteri, unspecified ([facility]) Had in the past, had hysterectomy Tobacco user The patient has been advised of the risks of continued smoking: stroke, OK, all forms of cancer, lung disease, and [...] of the risks of continued smoking: stroke, OK, all forms of cancer, lung disease, and [...] lisinopril, Associated Problem(s): Chronic diastolic heart failure ([facility]) Current meds; asa, farxiga, lasix, hydralazine, lisinopril, Follows with cardilogy Reviewed 08/02 notes Associated Problem(s): COPD (chronic obstructive pulmonary disease) (CMS/[facility]) Follows with verena Needs smoking cessation Current meds: duoneb, albuterol, daliresp, Associated Problem(s): Asthma ([facility]) Current meds: albuterol, duoneb, 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.] , Rfl: ergocalciferol (Vitamin D-2) 1.25 MG (29907 Units) capsule, Take 1.25 mg by mouth., [...] and at bedtime., Disp: , Rfl: HYDROcodone-acetaminophen (Hurlock) 5-325 mg tablet, TAKE 1 TABLET BY [...] not included)... [facility] 07-14-2024 History of Present illness Narrative Associated [...] or chew. ergocalciferol (Vitamin D2) 1.25 MG (42871 UT) capsule TAKE 1 CAPSULE BY MOUTH ONE TIME PER WEEK furosemide (LASIX) 40 mg, Oral, Daily furosemide (LASIX) 20 mg, Oral, Daily PRN, Take in the afternoon as needed hydrALAZINE (APRESOLINE) 25 mg, Oral, 2 times daily HYDROcodone-acetaminophen (Hurlock) 5-325 MG tablet 1 tablet, 3 times [...] CT Albuminuria 09/17/2023 Angiomyolipoma Anxiety and depression ([facility] 07/10/2023 Asthma ([facility] 07/10/2023 Body mass index (BMI) 50.0-59.9, adult ([facility] Cellulitis of left lower extremity Cervical cancer ([facility]) 09/17/2023 Chronic pain of both knees 09/17/2023 COPD (chronic obstructive pulmonary disease) ([facility] 07/10/2023 COPD exacerbation ([facility] 09/17/2023 Decreased functional mobility 09/17/2023 Diabetic neuropathy ([facility] 07/10/2023 Dietary counseling and surveillance Edema 07/10/2023 Elevated sed rate Elevated WBC count Essential (primary) hypertension ([facility] GERD (gastroesophageal reflux disease) 09/17/2023 Hyperlipidemia ([facility] 09/17/2023 Hypertension ([facility] 07/10/2023 Insomnia 09/17/2023 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 ([facility] Lower extremity edema 09/17/2023 Mixed hyperlipidemia ([facility] Morbid (severe) obesity due to excess calories ([facility] Obstructive sleep apnea 07/10/2023 PAD (peripheral artery disease) ([facility]) 09/17/2023 Pancreatitis 09/17/2023 Pneumonia 09/17/2023 Proteinuria, unspecified Pulmonary hypertension ([facility]) 09/17/2023 Radiculopathy, lumbar region 09/17/2023 Tobacco user 09/17/2023 Type 2 diabetes mellitus with complication, with long-term current use of insulin ([facility] 07/10/2023 Unilateral primary osteoarthritis, right hip 09/17/2023 [...] List Items Addressed This Visit Diabetic neuropathy ([facility]) Continue with tristan [facility] reviewed Fu in 3 months COPD (chronic obstructive pulmonary disease) ([facility]) Stable at this time, no changes in meds Encouraged smoking cessation Cont with dr Yañez Hypertension ([facility]) - Primary Please check blood pressure daily and record DASH diet Limit caffeine Take medication as directed Contact office if chest pain, pressure, dizziness, shortness of breath, swelling legs Recommend slow position changes Current meds: hydralazine, lisinopril, Type 2 diabetes mellitus with complication, with long-term current use of insulin ([facility]) Check blood sugars daily, notify [...] of the risks of continued smoking: stroke, OK, all forms of cancer, lung disease, and [...] 1 cm to 4 cm in diameter ([facility]) Continue with Urology Kidney stone Continue with Urology Non-seasonal allergic rhinitis Relevant Medications cetirizine (ZyrTEC) 10 MG tablet Critical limb ischemia of right lower extremity ([facility]) Saw vascular, does have narrowing in arteries in legs, and thus the wounds not healing At this point they strongly urge to quit smoking or risk limb amputation Cont asa and statin Also good blood pressure and sugar control Venous ulcer of right leg ([facility]) Encounter for smoking cessation counseling Relevant Medications nicotine (Nicoderm, Step 1) 21 MG/24HR patch Other Visit Diagnoses Type 2 diabetes mellitus with unspecified complications ([facility]) Quitting smokinppd, chantix not helped, ] Face time with pt, spent 15 minutes with pt Associated Problem(s): Tobacco user The patient has been advised of the risks of continued smoking: stroke, OK, all forms of cancer, lung disease, and [...] complication, with long-term current use of insulin ([facility]) Check blood sugars daily, notify [...] PPI Associated Problem(s): PAD (peripheral artery disease) ([facility]) Asa, statin Quit smoking BP [...] in 3 months documented in this encounter [facility] 06-11-2024 Hospital Discharge instructions Patient [...] require a prescription. You can also purchase [id number] medicines. Medicines may have nicotine in them [...] and encouragement. Call telephone quitlines, such as 5-862-GVUP-NOW, reach out to support groups, or work [...] provider. Document Revised: 06/16/2022 Document Reviewed: 06/16/2022 [employer] Patient Education 2023 [email or web address]. 06/11/2024 10:39:22 Dietary Guidelines to Help Prevent [...] include: ?8 oz (237 mL) of milk, [id number] milk, and calcium-fortifiedfruit juice. Calcium-fortified means that [...] ?Spinach (cooked), rhubarb, beets, sweet potatoes, and Colombian chard. ?Peanuts. ?Potato chips, american fries, and baked potatoes with skin on. ?Nuts and nut products. ?Chocolate. If you regularly take a diuretic medicine, make sure to eat at least 1 or 2 servings of fruits or vegetables that are high in potassium each day. These include: ?Avocado. ?Banana. ?[place], prune, carrot, or tomato juice. ?Baked potato. [...] magnesium, fish oil, or vitamin B6. Take [id number] and prescription medicines only as told by [...] Casseroles. Pizza. Lasagna. Frozen meals. Potato chips. Romanian fries. The items listed above may not [...] provider. Document Revised: 10/05/2022 Document Reviewed: 10/05/2022 [employer] Patient Education 2023 [email or web address]. Follow Up Care 05/06/2024 08:24:56 With:REGLA PHIPPS, Eblert Joya, URL Address: [facility] [address] , [place] [address]- When: Unknown [facility] 05-27-2024 History of Present illness Narrative [...] or chew. ergocalciferol (Vitamin D2) 1.25 MG (32082 UT) capsule TAKE 1 CAPSULE BY MOUTH ONE TIME PER WEEK furosemide (LASIX) 20 mg, Oral, Daily PRN, Take in the afternoon as needed furosemide (LASIX) 40 mg, Oral, Daily Glucose Blood (ACCU-CHEK JAQUI PLUS ) 4 times daily hydrALAZINE (APRESOLINE) 25 mg, Oral, 2 times daily HYDROcodone-acetaminophen (Hurlock) 5-325 MG tablet 1 tablet, 3 times [...] CT Albuminuria 09/17/2023 Angiomyolipoma Anxiety and depression ([facility]) 07/10/2023 Asthma ([facility]) 07/10/2023 Body mass index (BMI) 50.0-59.9, adult ([facility]) Cellulitis of left lower extremity Cervical cancer ([facility]) 09/17/2023 Chronic pain of both knees 09/17/2023 COPD (chronic obstructive pulmonary disease) ([facility]) 07/10/2023 COPD exacerbation [place] 09/17/2023 Decreased functional mobility 09/17/2023 Diabetic neuropathy ([facility] 07/10/2023 Dietary counseling and surveillance Edema 07/10/2023 Elevated sed rate Elevated WBC count GERD (gastroesophageal reflux disease) 09/17/2023 [place] 09/17/2023 Hypertension [place] 07/10/2023 Insomnia 09/17/2023 detention (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 [place] Lower extremity edema 09/17/2023 Morbid (severe) obesity due to excess calories [place] Obstructive sleep apnea 07/10/2023 PAD (peripheral artery disease) [place] 09/17/2023 Pancreatitis 09/17/2023 Pneumonia 09/17/2023 Proteinuria, unspecified Pulmonary hypertension [place] 09/17/2023 Radiculopathy, lumbar region 09/17/2023 Tobacco user 09/17/2023 Type 2 diabetes mellitus with complication, with long-term current use of insulin [place] 07/10/2023 Unilateral primary osteoarthritis, right hip 09/17/2023 [...] hyperglycemia, with long-term current use of insulin ([facility]) - POCT glucose manually resulted - POCT glycosylated hemoglobin (Hb A1C) docked device We will continue with Lantus 58, lispro 02/16/12 according to meal size, Mounjaro 15 mg once weekly, Farxiga 5 mg once a day Encounter for dietary consultation Vitamin D deficiency Primary hypertension ([facility]) To follow with her PCP Insulin long-term use ([facility]) Hyperlipemia, mixed ([facility]) Continue with Zocor 10 mg once daily Microalbuminuria Class 3 severe obesity due to excess calories with serious comorbidity and body mass index (BMI) of 50.0 to 59.9 in adult ([facility]) Diet and exercise reviewed with the patient Follow up in about 3 months (around 08/27/2024). documented in this encounter [facility] 04-14-2024 History of Present illness Narrative Associated [...] being taken. She does not see a ip technology transactions attorney.Eye exam is not current. Hypertension This is [...] or chew. ergocalciferol (Vitamin D2) 1.25 MG (48654 UT) capsule TAKE 1 CAPSULE BY MOUTH ONE TIME PER WEEK furosemide (LASIX) 20 mg, Oral, Daily PRN, Take in the afternoon as needed furosemide (LASIX) 40 mg, Oral, Daily Glucose Blood (ACCU-CHEK JAQUI PLUS ) 4 times daily HumaLOG KWIKPEN 100 UNIT/ML injection Subcutaneous hydrALAZINE (APRESOLINE) 25 mg, Oral, 2 times daily HYDROcodone-acetaminophen (Hurlock) 5-325 MG tablet 1 tablet, 3 times [...] CT Albuminuria 09/17/2023 Angiomyolipoma Anxiety and depression ([facility]) 07/10/2023 Asthma ([facility]) 07/10/2023 Cellulitis of left lower extremity Cervical cancer ([facility]) 09/17/2023 Chronic pain of both knees 09/17/2023 COPD (chronic obstructive pulmonary disease) [place] 07/10/2023 COPD exacerbation [place] 09/17/2023 Decreased functional mobility 09/17/2023 Diabetic neuropathy [place] 07/10/2023 Edema 07/10/2023 Elevated sed rate Elevated WBC count GERD (gastroesophageal reflux disease) 09/17/2023 Hyperlipidemia [place] 09/17/2023 Hypertension [place] 07/10/2023 Insomnia 09/17/2023 Lower extremity edema 09/17/2023 Obstructive sleep apnea 07/10/2023 PAD (peripheral artery disease) ([facility] 09/17/2023 Pancreatitis 09/17/2023 Pneumonia 09/17/2023 Pulmonary hypertension [place] 09/17/2023 Radiculopathy, lumbar region 09/17/2023 Tobacco user 09/17/2023 Type 2 diabetes mellitus with complication, with long-term current use of insulin [place] 07/10/2023 Unilateral primary osteoarthritis, right hip 09/17/2023 [...] List Items Addressed This Visit Diabetic neuropathy ([facility]) Continue with tristan EAST reviewed Fu in 3 months Relevant Medications pregabalin (Lyrica) 300 MG capsule COPD (chronic obstructive pulmonary disease) ([facility]) - Primary Stable at this time, no changes in meds Encouraged smoking cessation Cont with dr Yañez Hypertension ([facility]) Stable on current meds Refill meds Relevant Medications hydrALAZINE (Apresoline) 25 MG tablet lisinopril 20 MG tablet Type 2 diabetes mellitus with complication, with long-term current use of insulin ([facility]) Check blood sugars daily, follow [...] tablet documented in this encounter [facility] 11-15-2022 Hospital Discharge instructions Patient Education 11/15/2022 [...] include: ?8 oz (237 mL) of milk, tsmnpld-boneyciedomx-umelf milk, and calcium-fortifiedfruit juice. Calcium-fortified means that [...] ?Spinach (cooked), rhubarb, beets, sweet potatoes, and Colombian chard. ?Peanuts. ?Potato chips, american fries, and baked potatoes with skin on. ?Nuts and nut products. ?Chocolate. If you regularly take a diuretic medicine, make sure to eat at least 1 or 2 servings of fruits or vegetables that are high in potassium each day. These include: ?Avocado. ?Banana. ?[place], prune, carrot, or tomato juice. ?Baked potato. [...] magnesium, fish oil, or vitamin B6. Take ewhr-lrp-ohsgkdq and prescription medicines only as told by [...] Casseroles. Pizza. Lasagna. Frozen meals. Potato chips. Romanian fries. The items listed above may not [...] provider. Document Revised: 03/06/2022 Document Reviewed: 03/06/2022 [employer] Patient Education 2022 [email or web address]. Follow Up Care 02/06/2022 11:44:09 With:SARAH VEGA PA-C, URL Address: [address] [address] When: Unknown [facility] 08-24-2022 Note CONSULTATION CONSULTATION DATE: [...] We maintain her on pain medication with Hurlock 5/325 t.i.d., diclofenac 75 mg b.i.d. Her [...] her at this point. A refill for Hurlock 5/325 t.i.d. and diclofenac 75 mg b.i.d. will be sent to the pharmacy. Vitamin compliance and nutrition were discussed and enforced. I did highly encourage her to use exercise bands to increase the strength in her lower extremities. We will see her in three months' time, unless otherwise indicated, and patient agrees. [facility] 05-11-2022 Note CONSULTATION CONSULTATION [...] 150. Medications include Lyrica 300 mg b.i.d., Hurlock 5/325 t.i.d., diclofenac 75 mg b.i.d. and [...] her medications today. We will maintain Lyrica, Hurlock and diclofenac at the set dose and frequency. We will follow-up in the clinic in three months' time. The patient is in agreement to this. Vitamin importance and nutrition were discussed. [facility] 04-20-2022 Note CONSULTATION CONSULTATION [...] medications include Tylenol, Lyrica 300 mg b.i.d., Hurlock 5/325 t.i.d., amitriptyline, diclofenac and duloxetine. Patient's [...] be followed up in the clinic. [facility] 03-08-2022 Evaluation note Encounter [...] to the DANIEL. Thrombocytopenia is unclear etiology. [facility] Other 08-15-2022 Evaluation note* Encounter Date Diagnosis [...] follow with Dr. Souza and Dr. Arauz. [facility] 08-01-2022 Hospital Discharge instructions Patient Education [...] fried and sweet foods. General instructions Take peps-qei-kkkpwrt and prescription medicines only as told by [...] 04/21/2010 Document Revised: 10/16/2019 Document Reviewed: 07/11/2018 [employer] Patient Education 2020 [email or web address]. Follow Up Care 01/05/2022 12:02:03 With:REGLA PHIPPS, Elbert Joya, URL Address: [facility] [address] [place] [address] [phone] When:Within 6 Month(s) Comments:w/ repeat CT A/P [facility] 07-14-2022 NoteCONSULTATION PROCEDURE DATE: 01/19/2022 [...] pattern and the patient tolerated it well. [facility] Signed and Approved by: GIL VALENZUELA . 01/27/2022 14:15:00[facility]07-14-2022 NoteCONSULTATION CONSULTATION DATE: 01/19/2022 [...] today. Medications include Lyrica 300 mg b.i.d., Hurlock 5/325 t.i.d., diclofenac 75 mg b.i.d. and [...] in three months' time unless otherwise indicated. [facility] Signed and Approved by: GIL VALENZUELA . 01/27/2022 [facility]ments Appointment Date:08/14/2022 09:15:00 AM Scheduled Provider:Elbert ARAUZ MD Location:[facility] Appointment Type:URO Office Visit [facility] evaluation + Plan note Future Appointments Appointment Date:04/22/2024 10:00:00 AM Scheduled Provider:SARAH VEGA PA-C Location:[facility] Appointment Type:URO Office Visit [facility] evaljssrce note* Diagnosis Type 2 diabetes mellitus with unspecified complications ([facility]) Edema, unspecified Edema [facility] Diagnosis Vaginal yeast infection- Primary Candidiasis of vulva and vagina documented [facility]* Diagnosis Primary hypertension ([facility])- Primary Unspecified essential hypertension Insomnia Insomnia, unspecified Type 2 diabetes mellitus with complication, with long-term current use of insulin (CMS/HCC) Non-seasonal allergic rhinitis, unspecified trigger Type 2 diabetes mellitus with unspecified complications (CMS/HCC) Anxiety and depression ([facility]) Gastro-esophageal reflux disease without esophagitis Edema, unspecified Edema Diabetic polyneuropathy associated with type 2 diabetes mellitus ([facility]) Chronic obstructive pulmonary disease, unspecified (CMS/HCC) Pulmonary emphysema, unspecified emphysema type (CMS/HCC) Bilateral lower extremity edema Tobacco user Tobacco use disorder Hyperpigmentation of skin Other dyschromia [facility]* Diagnosis Obstructive sleep apnea- Primary Obstructive sleep apnea (adult) (pediatric) Pulmonary emphysema, unspecified emphysema type (CMS/HCC) Primary hypertension ([facility]) Unspecified essential hypertension Type 2 diabetes mellitus with complication, with long-term current use of insulin ([facility]) Anxiety and depression ([facility]) Bilateral lower extremity edema Pulmonary emphysema, unspecified emphysema type (CMS/HCC)- Primary Primary hypertension ([facility]) Unspecified essential hypertension Class 3 severe obesity with serious comorbidity and body mass index (BMI) of 50.0 to 59.9 in adult, unspecified obesity type ([facility]) Obstructive sleep apnea Obstructive sleep apnea (adult) (pediatric) Pulmonary hypertension ([facility]) Other chronic pulmonary heart diseases Tobacco user Tobacco use disorder Cardiomegaly Primary hypertension ([facility])- Primary Unspecified essential hypertension Gastroesophageal reflux disease, unspecified whether esophagitis present Type 2 diabetes mellitus with complication, with long-term current use of insulin ([facility]) Mixed hyperlipidemia ([facility]) Mixed hyperlipidemia Tobacco user Tobacco use disorder Encounter for screening mammogram for malignant neoplasm of breast Chronic obstructive pulmonary disease, unspecified ([facility]) Other specified chronic obstructive pulmonary disease ([facility]) Anxiety and depression ([facility]) Edema, unspecified Edema Hyperlipidemia, unspecified ([facility]) Diabetic polyneuropathy associated with type 2 diabetes mellitus ([facility]) Gout, unspecified cause, unspecified chronicity, unspecified site Non-seasonal allergic rhinitis, unspecified trigger Bilateral lower extremity edema COPD exacerbation ([facility]) Obstructive chronic bronchitis with exacerbation Pulmonary emphysema, unspecified emphysema type ([facility]) Venous insufficiency Unspecified venous (peripheral) insufficiency Candidiasis of breast COPD exacerbation ([facility])- Primary Obstructive chronic bronchitis with exacerbation Pulmonary hypertension ([facility]) Other chronic pulmonary heart diseases Class 3 severe obesity with serious comorbidity and body mass index (BMI) of 50.0 to 59.9 in adult, unspecified obesity type ([facility]) Encounter for subsequent annual wellness visit (AWV) in Medicare patient- Primary Type 2 diabetes mellitus with unspecified complications ([facility]) Pulmonary emphysema, unspecified emphysema type ([facility]) Moderate persistent asthma without complication ([facility]) Primary hypertension ([facility]) Unspecified essential hypertension Type 2 diabetes mellitus with complication, with long-term current use of insulin ([facility]) Class 3 severe obesity with serious comorbidity and body mass index (BMI) of 50.0 to 59.9 in adult, unspecified obesity type ([facility]) Tobacco user Tobacco use disorder Other headache syndrome Malignant neoplasm of cervix uteri, unspecified ([facility]) Other specified disorders of adrenal gland ([facility]) Major depressive disorder, single episode, mild (HCC) ([facility]) Major depressive disorder, single episode, mild 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 exposed ([facility]) Chronic respiratory failure, unspecified whether with hypoxia or hypercapnia ([facility]) Disorder of adrenal gland, unspecified ([facility]) Non-pressure chronic ulcer of other part of right lower leg limited to breakdown of skin ([facility]) Non-recurrent acute suppurative otitis media of left ear without spontaneous rupture of tympanic membrane Primary hypertension ([facility])- Primary Unspecified essential hypertension Insomnia Insomnia, unspecified Type 2 diabetes mellitus with complication, with long-term current use of insulin ([facility]) Non-seasonal allergic rhinitis, unspecified trigger Type 2 diabetes mellitus with unspecified complications ([facility]) Anxiety and depression ([facility]) Gastro-esophageal reflux disease without esophagitis Edema, unspecified Edema Diabetic polyneuropathy associated with type 2 diabetes mellitus ([facility]) Chronic obstructive pulmonary disease, unspecified ([facility]) Pulmonary emphysema, unspecified emphysema type ([facility]) Bilateral lower extremity edema Tobacco user Tobacco use disorder Hyperpigmentation of skin Other dyschromia Type 2 diabetes mellitus with hyperglycemia, with long-term current use of insulin ([facility])- Primary Encounter for dietary consultation Vitamin D deficiency Primary hypertension ([facility]) Unspecified essential hypertension Insulin long-term use ([facility]) Encounter for long-term (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 Hyperlipemia, mixed ([facility]) Mixed hyperlipidemia Microalbuminuria Proteinuria Class 3 severe obesity due to excess calories with serious comorbidity and body mass index (BMI) of 50.0 to 59.9 in adult ([facility]) documented in this encounter [facility]* Diagnosis Hyperlipidemia, unspecified ([facility]) Bilateral lower extremity edema documented in [facility] encounter [facility]* Diagnosis Vitamin D deficiency, unspecified documented in this encounter [facility]* Diagnosis Obstructive sleep apnea- Primary Obstructive sleep apnea (adult) (pediatric) Pulmonary emphysema, unspecified emphysema type ([facility]) Primary hypertension ([facility]) Unspecified essential hypertension Type 2 diabetes mellitus with complication, with long-term current use of insulin ([facility]) Anxiety and depression ([facility]) Bilateral lower extremity edema Pulmonary emphysema, unspecified emphysema type ([facility])- Primary Primary hypertension ([facility]) Unspecified essential hypertension Class 3 severe obesity with serious comorbidity and body mass index (BMI) of 50.0 to 59.9 in adult, unspecified obesity type ([facility]) Obstructive sleep apnea Obstructive sleep apnea (adult) (pediatric) Pulmonary hypertension ([facility]) Other chronic pulmonary heart diseases Tobacco user Tobacco use disorder Cardiomegaly Primary hypertension ([facility])- Primary Unspecified essential hypertension Gastroesophageal reflux disease, unspecified whether esophagitis present Type 2 diabetes mellitus with complication, with long-term current use of insulin ([facility]) Mixed hyperlipidemia ([facility]) Mixed hyperlipidemia Tobacco user Tobacco use disorder Encounter for screening mammogram for malignant neoplasm of breast Chronic obstructive pulmonary disease, unspecified ([facility]) Other specified chronic obstructive pulmonary disease ([facility]) Anxiety and depression ([facility]) Edema, unspecified Edema Hyperlipidemia, unspecified ([facility]) Diabetic polyneuropathy associated with type 2 diabetes mellitus ([facility]) Gout, unspecified cause, unspecified chronicity, unspecified site Non-seasonal allergic rhinitis, unspecified trigger Bilateral lower extremity edema COPD exacerbation ([facility]) Obstructive chronic bronchitis with exacerbation Pulmonary emphysema, unspecified emphysema type ([facility]) Venous insufficiency Unspecified venous (peripheral) insufficiency Candidiasis of breast COPD exacerbation ([facility])- Primary Obstructive chronic bronchitis with exacerbation Pulmonary hypertension ([facility]) Other chronic pulmonary heart diseases Class 3 severe obesity with serious comorbidity and body mass index (BMI) of 50.0 to 59.9 in adult, unspecified obesity type ([facility]) Encounter for subsequent annual wellness visit (AWV) in Medicare patient- Primary Type 2 diabetes mellitus with unspecified complications ([facility]) Pulmonary emphysema, unspecified emphysema type ([facility]) Moderate persistent asthma without complication ([facility]) Primary hypertension ([facility]) Unspecified essential hypertension Type 2 diabetes mellitus with complication, with long-term current use of insulin ([facility]) Class 3 severe obesity with serious comorbidity and body mass index (BMI) of 50.0 to 59.9 in adult, unspecified obesity type ([facility]) Tobacco user Tobacco use disorder Other headache syndrome Malignant neoplasm of cervix uteri, unspecified ([facility]) Other specified disorders of adrenal gland ([facility]) Major depressive disorder, single episode, mild (HCC) ([facility]) Major depressive disorder, single episode, mild 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 exposed ([facility]) Chronic respiratory failure, unspecified whether with hypoxia or hypercapnia ([facility]) Disorder of adrenal gland, unspecified ([facility]) Non-pressure chronic ulcer of other part of right lower leg limited to breakdown of skin ([facility]) Non-recurrent acute suppurative otitis media of left ear without spontaneous rupture of tympanic membrane Primary hypertension ([facility])- Primary Unspecified essential hypertension Insomnia Insomnia, unspecified Type 2 diabetes mellitus with complication, with long-term current use of insulin ([facility]) Non-seasonal allergic rhinitis, unspecified trigger Type 2 diabetes mellitus with unspecified complications ([facility]) Anxiety and depression ([facility]) Gastro-esophageal reflux disease without esophagitis Edema, unspecified Edema Diabetic polyneuropathy associated with type 2 diabetes mellitus ([facility]) Chronic obstructive pulmonary disease, unspecified ([facility]) Pulmonary emphysema, unspecified emphysema type ([facility]) Bilateral lower extremity edema Tobacco user Tobacco use disorder Hyperpigmentation of skin Other dyschromia Bilateral lower extremity edema documented [facility] encounter [facility] Diagnosis Obstructive sleep apnea- Primary Obstructive sleep apnea (adult) (pediatric) Pulmonary emphysema, unspecified emphysema type ([facility]) Primary hypertension ([facility] Unspecified essential hypertension Type 2 diabetes mellitus with complication, with long-term current use of insulin ([facility]) Anxiety and depression ([facility]) Bilateral lower extremity edema Pulmonary emphysema, unspecified emphysema type ([facility])- Primary Primary hypertension ([facility]) Unspecified essential hypertension Class 3 severe obesity with serious comorbidity and body mass index (BMI) of 50.0 to 59.9 in adult, unspecified obesity type ([facility]) Obstructive sleep apnea Obstructive sleep apnea (adult) (pediatric) Pulmonary hypertension ([facility]) Other chronic pulmonary heart diseases Tobacco user Tobacco use disorder Cardiomegaly Primary hypertension ([facility])- Primary Unspecified essential hypertension Gastroesophageal [...] to 59.9 in adult, unspecified obesity type ([facility]) Encounter for subsequent annual wellness [...] complication, with long-term current use of insulin ([facility]) Non-seasonal allergic rhinitis, unspecified trigger Type 2 diabetes mellitus with unspecified complications ([facility]) Anxiety and depression ([facility]) Gastro-esophageal reflux disease without esophagitis Edema, unspecified Edema Diabetic polyneuropathy associated with type 2 diabetes mellitus ([facility]) Chronic obstructive pulmonary disease, unspecified ([facility]) Pulmonary emphysema, unspecified emphysema type ([facility]) Bilateral lower extremity edema Tobacco user Tobacco use disorder Hyperpigmentation of skin Other dyschromia Primary hypertension ([facility])- Primary Unspecified essential hypertension Diabetic polyneuropathy associated with type 2 diabetes mellitus ([facility]) Pulmonary emphysema, unspecified emphysema type ([facility]) Critical limb ischemia of right lower extremity ([facility]) PAD (peripheral artery disease) ([facility]) Unspecified peripheral vascular disease Gastroesophageal reflux disease, unspecified whether esophagitis present Bilateral lower extremity edema Venous ulcer of right leg ([facility]) Type 2 diabetes mellitus with complication, with long-term current use of insulin ([facility]) Tobacco user Tobacco use disorder Encounter for smoking cessation counseling Kidney stone Calculus of kidney Adrenal mass 1 cm to 4 cm in diameter ([facility]) Radiculopathy, lumbar region Thoracic or lumbosacral neuritis or radiculitis, unspecified Non-seasonal allergic rhinitis, unspecified trigger Type 2 diabetes mellitus with unspecified complications ([facility]) documented in this encounter [facility] HealthcareEvaluation note* Diagnosis Obstructive sleep apnea- Primary Obstructive sleep apnea (adult) (pediatric) Pulmonary emphysema, unspecified emphysema type ([facility]) Primary hypertension ([facility]) Unspecified essential hypertension Type 2 diabetes mellitus with complication, with long-term current use of insulin ([facility]) Anxiety and depression ([facility]) Bilateral lower extremity edema Pulmonary emphysema, unspecified emphysema type ([facility])- Primary Primary hypertension ([facility]) Unspecified essential hypertension Class 3 severe obesity with serious comorbidity and body mass index (BMI) of 50.0 to 59.9 in adult, unspecified obesity type ([facility]) Obstructive sleep apnea Obstructive sleep apnea (adult) (pediatric) Pulmonary hypertension ([facility]) Other chronic pulmonary heart diseases Tobacco user Tobacco use disorder Cardiomegaly Primary hypertension ([facility])- Primary Unspecified essential hypertension Gastroesophageal [...] to 59.9 in adult, unspecified obesity type ([facility]) Encounter for subsequent annual wellness [...] complication, with long-term current use of insulin ([facility]) Non-seasonal allergic rhinitis, unspecified trigger Type 2 diabetes mellitus with unspecified complications ([facility]) Anxiety and depression ([facility]) Gastro-esophageal reflux disease without esophagitis Edema, unspecified Edema Diabetic polyneuropathy associated with type 2 diabetes mellitus ([facility]) Chronic obstructive pulmonary disease, unspecified ([facility]) Pulmonary emphysema, unspecified emphysema type ([facility]) Bilateral lower extremity edema Tobacco user Tobacco use disorder Hyperpigmentation of skin Other dyschromia Primary hypertension ([facility])- Primary Unspecified essential hypertension Diabetic polyneuropathy associated with type 2 diabetes mellitus ([facility]) Pulmonary emphysema, unspecified emphysema type ([facility]) Critical limb ischemia of right lower extremity ([facility]) PAD (peripheral artery disease) ([facility]) Unspecified peripheral vascular disease Gastroesophageal reflux disease, unspecified whether esophagitis present Bilateral lower extremity edema Venous ulcer of right leg ([facility]) Type 2 diabetes mellitus with complication, with long-term current use of insulin ([facility]) Tobacco user Tobacco use disorder Encounter for smoking cessation counseling Kidney stone Calculus of kidney Adrenal mass 1 cm to 4 cm in diameter ([facility]) Radiculopathy, lumbar region Thoracic or lumbosacral neuritis or radiculitis, unspecified Non-seasonal allergic rhinitis, unspecified trigger Type 2 diabetes mellitus with unspecified complications ([facility]) Anxiety and depression ([facility])- Primary Morbid (severe) obesity due to excess calories ([facility]) Body mass index (BMI) 50.0-59.9, adult ([facility]) Malignant neoplasm of cervix uteri, unspecified ([facility]) Diabetic polyneuropathy associated with type 2 diabetes mellitus ([facility]) Chronic diastolic heart failure ([facility] Chronic diastolic heart failure Primary hypertension ([facility]) Unspecified essential hypertension 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 ([facility]) Gastroesophageal reflux disease, unspecified whether esophagitis present Bilateral lower extremity edema Type 2 diabetes mellitus with complication, with long-term current use of insulin ([facility]) Tobacco user Tobacco use disorder Mixed hyperlipidemia ([facility]) Mixed hyperlipidemia Gout, unspecified cause, unspecified chronicity, unspecified site Vitamin deficiency Unspecified vitamin deficiency Gastro-esophageal reflux disease without esophagitis Edema, unspecified Edema Hyperlipidemia, unspecified ([facility]) Encounter for smoking cessation counseling Venous ulcer of right leg ([facility]) Antibiotic-induced yeast infection documented in this encounter [facility] HealthcareEvaluation note* Diagnosis Obstructive sleep apnea- Primary Obstructive sleep apnea (adult) (pediatric) Pulmonary emphysema, unspecified emphysema type ([facility]) Primary hypertension ([facility]) Unspecified essential hypertension Type 2 diabetes mellitus with complication, with long-term current use of insulin ([facility]) Anxiety and depression ([facility]) Bilateral lower extremity edema Pulmonary emphysema, unspecified emphysema type ([facility])- Primary Primary hypertension ([facility]) Unspecified essential hypertension Class 3 severe obesity with serious comorbidity and body mass index (BMI) of 50.0 to 59.9 in adult, unspecified obesity type Obstructive sleep apnea Obstructive sleep apnea (adult) (pediatric) Pulmonary hypertension ([facility]) Other chronic pulmonary heart diseases Tobacco user Tobacco use disorder Cardiomegaly Primary hypertension ([facility])- Primary Unspecified essential hypertension Gastroesophageal reflux disease, unspecified whether esophagitis present Type 2 diabetes mellitus with complication, with long-term current use of insulin ([facility]) Mixed hyperlipidemia ([facility]) Mixed hyperlipidemia Tobacco user Tobacco use disorder Encounter for screening mammogram for malignant neoplasm of breast Chronic obstructive pulmonary disease, unspecified Other specified chronic obstructive pulmonary disease Anxiety and depression ([facility]) Edema, unspecified Edema Hyperlipidemia, unspecified ([facility]) Diabetic polyneuropathy associated with type 2 diabetes mellitus ([facility]) Gout, unspecified cause, unspecified chronicity, unspecified site Non-seasonal allergic rhinitis, unspecified trigger Bilateral lower extremity edema COPD exacerbation ([facility]) Obstructive chronic bronchitis with exacerbation Pulmonary emphysema, unspecified emphysema type ([facility]) Venous insufficiency Unspecified venous (peripheral) insufficiency Candidiasis of breast COPD exacerbation ([facility])- Primary Obstructive chronic bronchitis with exacerbation Pulmonary hypertension ([facility]) Other chronic pulmonary heart diseases Class 3 severe obesity with serious comorbidity and body mass index (BMI) of 50.0 to 59.9 in adult, unspecified obesity type Encounter for subsequent annual wellness visit (AWV) in Medicare patient- Primary Type 2 diabetes mellitus with unspecified complications Pulmonary emphysema, unspecified emphysema type ([facility]) Moderate persistent asthma without complication ([facility]) Primary hypertension ([facility]) Unspecified essential hypertension Type 2 diabetes mellitus with complication, with long-term current use of insulin ([facility]) Class 3 severe obesity with serious comorbidity and body mass index (BMI) of 50.0 to 59.9 in adult, unspecified obesity type Tobacco user Tobacco use disorder Other headache syndrome Malignant neoplasm of cervix uteri, unspecified Other specified disorders of adrenal gland Major depressive disorder, single episode, mild (HCC) ([facility]) Major depressive disorder, single episode, mild 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 exposed Chronic respiratory failure, unspecified whether with hypoxia or hypercapnia Disorder of adrenal gland, unspecified Non-pressure chronic ulcer of other part of right lower leg limited to breakdown of skin ([facility]) Non-recurrent acute suppurative otitis media of left ear without spontaneous rupture of tympanic membrane Primary hypertension ([facility])- Primary Unspecified essential hypertension Insomnia Insomnia, unspecified Type 2 diabetes mellitus with complication, with long-term current use of insulin ([facility]) Non-seasonal allergic rhinitis, unspecified trigger Type 2 diabetes mellitus with unspecified complications Anxiety and depression ([facility]) Gastro-esophageal reflux disease without esophagitis Edema, unspecified Edema Diabetic polyneuropathy associated with type 2 diabetes mellitus ([facility]) Chronic obstructive pulmonary disease, unspecified Pulmonary emphysema, unspecified emphysema type ([facility]) Bilateral lower extremity edema Tobacco user Tobacco use disorder Hyperpigmentation of skin Other dyschromia Primary hypertension ([facility])- Primary Unspecified essential hypertension Diabetic polyneuropathy associated with type 2 diabetes mellitus ([facility]) Pulmonary emphysema, unspecified emphysema type ([facility]) Critical limb ischemia of right lower extremity ([facility]) PAD (peripheral artery disease) ([facility]) Unspecified peripheral vascular disease Gastroesophageal reflux disease, unspecified whether esophagitis present Bilateral lower extremity edema Venous ulcer of right leg ([facility]) Type 2 diabetes mellitus with complication, with long-term current use of insulin ([facility]) Tobacco user Tobacco use disorder Encounter for smoking cessation counseling Kidney stone Calculus of kidney Adrenal mass 1 cm to 4 cm in diameter ([facility]) Radiculopathy, lumbar region Thoracic or lumbosacral neuritis or radiculitis, unspecified Non-seasonal allergic rhinitis, unspecified trigger Type 2 diabetes mellitus with unspecified complications Anxiety and depression ([facility])- Primary Morbid (severe) obesity due to excess calories ([facility]) Body mass index (BMI) 50.0-59.9, adult ([facility]) Malignant neoplasm of cervix uteri, unspecified Diabetic polyneuropathy associated with type 2 diabetes mellitus ([facility]) Chronic diastolic heart failure ([facility]) Chronic diastolic heart failure Primary hypertension ([facility]) Unspecified essential hypertension 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 Gastroesophageal reflux disease, unspecified whether esophagitis present Bilateral lower extremity edema Type 2 diabetes mellitus with complication, with long-term current use of insulin ([facility]) Tobacco user Tobacco use disorder Mixed hyperlipidemia ([facility]) Mixed hyperlipidemia Gout, unspecified cause, unspecified chronicity, unspecified site Vitamin deficiency Unspecified vitamin deficiency Gastro-esophageal reflux disease without esophagitis Edema, unspecified Edema Hyperlipidemia, unspecified [place] Encounter for smoking cessation counseling Venous ulcer of right leg ([facility] Antibiotic-induced yeast infection Type 2 diabetes mellitus with hyperglycemia, with long-term current use of insulin [place] Primary Encounter for dietary consultation Vitamin D deficiency Primary hypertension ([facility] Unspecified essential hypertension Insulin long-term use ([facility] Encounter for long-term (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 Hyperlipemia, mixed ([facility]) Mixed hyperlipidemia Microalbuminuria Proteinuria Class 3 severe obesity due to excess calories with serious comorbidity and body mass index (BMI) of 50.0 to 59.9 in adult documented in this encounter [facility] HealthcareEvaluation note* Diagnosis Obstructive sleep apnea- Primary Obstructive sleep apnea (adult) (pediatric) Pulmonary emphysema, unspecified emphysema type ([facility]) Primary hypertension ([facility]) Unspecified essential hypertension Type 2 diabetes mellitus with complication, with long-term current use of insulin [place] Anxiety and depression [place] Bilateral lower extremity edema Pulmonary emphysema, unspecified emphysema type ([facility])- Primary Primary hypertension ([facility]) Unspecified essential hypertension Class 3 severe obesity with serious comorbidity and body mass index (BMI) of 50.0 to 59.9 in adult, unspecified obesity type Obstructive sleep apnea Obstructive sleep apnea (adult) (pediatric) Pulmonary hypertension ([facility]) Other chronic pulmonary heart diseases Tobacco user Tobacco use disorder Cardiomegaly Primary hypertension ([facility])- Primary Unspecified essential hypertension Gastroesophageal reflux disease, unspecified whether esophagitis present Type 2 diabetes mellitus with complication, with long-term current use of insulin ([facility]) Mixed hyperlipidemia ([facility]) Mixed hyperlipidemia Tobacco user Tobacco use disorder Encounter for screening mammogram for malignant neoplasm of breast Chronic obstructive pulmonary disease, unspecified Other specified chronic obstructive pulmonary disease Anxiety and depression ([facility]) Edema, unspecified Edema Hyperlipidemia, unspecified ([facility]) Diabetic polyneuropathy associated with type 2 diabetes mellitus ([facility]) Gout, unspecified cause, unspecified chronicity, unspecified site Non-seasonal allergic rhinitis, unspecified trigger Bilateral lower extremity edema COPD exacerbation ([facility]) Obstructive chronic bronchitis with exacerbation Pulmonary emphysema, unspecified emphysema type ([facility]) Venous insufficiency Unspecified venous (peripheral) insufficiency Candidiasis of breast COPD exacerbation ([facility])- Primary Obstructive chronic bronchitis with exacerbation Pulmonary hypertension ([facility]) Other chronic pulmonary heart diseases Class 3 severe obesity with serious comorbidity and body mass index (BMI) of 50.0 to 59.9 in adult, unspecified obesity type Encounter for subsequent annual wellness visit (AWV) in Medicare patient- Primary Type 2 diabetes mellitus with unspecified complications Pulmonary emphysema, unspecified emphysema type ([facility]) Moderate persistent asthma without complication ([facility]) Primary hypertension ([facility]) Unspecified essential hypertension Type 2 diabetes mellitus with complication, with long-term current use of insulin ([facility]) Class 3 severe obesity with serious comorbidity and body mass index (BMI) of 50.0 to 59.9 in adult, unspecified obesity type Tobacco user Tobacco use disorder Other headache syndrome Malignant neoplasm of cervix uteri, unspecified Other specified disorders of adrenal gland Major depressive disorder, single episode, mild (HCC) ([facility]) Major depressive disorder, single episode, mild 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 exposed Chronic respiratory failure, unspecified whether with hypoxia or hypercapnia Disorder of adrenal gland, unspecified Non-pressure chronic ulcer of other part of right lower leg limited to breakdown of skin ([facility]) Non-recurrent acute suppurative otitis media of left ear without spontaneous rupture of tympanic membrane Primary hypertension ([facility])- Primary Unspecified essential hypertension Insomnia Insomnia, unspecified Type 2 diabetes mellitus with complication, with long-term current use of insulin ([facility]) Non-seasonal allergic rhinitis, unspecified trigger Type 2 diabetes mellitus with unspecified complications Anxiety and depression ([facility]) Gastro-esophageal reflux disease without esophagitis Edema, unspecified Edema Diabetic polyneuropathy associated with type 2 diabetes mellitus ([facility]) Chronic obstructive pulmonary disease, unspecified Pulmonary emphysema, unspecified emphysema type ([facility]) Bilateral lower extremity edema Tobacco user Tobacco use disorder Hyperpigmentation of skin Other dyschromia Primary hypertension ([facility])- Primary Unspecified essential hypertension Diabetic polyneuropathy associated with type 2 diabetes mellitus ([facility]) Pulmonary emphysema, unspecified emphysema type ([facility]) Critical limb ischemia of right lower extremity ([facility]) PAD (peripheral artery disease) ([facility]) Unspecified peripheral vascular disease Gastroesophageal reflux disease, unspecified whether esophagitis present Bilateral lower extremity edema Venous ulcer of right leg ([facility]) Type 2 diabetes mellitus with complication, with long-term current use of insulin ([facility]) Tobacco user Tobacco use disorder Encounter for smoking cessation counseling Kidney stone Calculus of kidney Adrenal mass 1 cm to 4 cm in diameter [place] Radiculopathy, lumbar region Thoracic or lumbosacral neuritis or radiculitis, unspecified Non-seasonal allergic rhinitis, unspecified trigger Type 2 diabetes mellitus with unspecified complications Anxiety and depression ([facility])- Primary Morbid (severe) obesity due to excess calories ([facility]) Body mass index (BMI) 50.0-59.9, adult ([facility]) Malignant neoplasm of cervix uteri, unspecified Diabetic polyneuropathy associated with type 2 diabetes mellitus ([facility]) Chronic diastolic heart failure ([facility]) Chronic diastolic heart failure Primary hypertension ([facility]) Unspecified essential hypertension 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 Gastroesophageal reflux disease, unspecified whether esophagitis present Bilateral lower extremity edema Type 2 diabetes mellitus with complication, with long-term current use of insulin ([facility]) Tobacco user Tobacco use disorder Mixed hyperlipidemia ([facility]) Mixed hyperlipidemia Gout, unspecified cause, unspecified chronicity, unspecified site Vitamin deficiency Unspecified vitamin deficiency Gastro-esophageal reflux disease without esophagitis Edema, unspecified Edema Hyperlipidemia, unspecified ([facility]) Encounter for smoking cessation counseling [place]ous [place] [place] Antibiotic-induced yeast infection Chronic obstructive pulmonary disease, unspecified documented in this encounter [facility] HealthcareEvaluation note* Diagnosis Obstructive sleep apnea- Primary Obstructive sleep apnea (adult) (pediatric) Pulmonary emphysema, unspecified emphysema type ([facility]) Primary hypertension ([facility]) Unspecified essential hypertension Type 2 diabetes mellitus with complication, with long-term current use of insulin ([facility]) Anxiety and depression ([facility]) Bilateral lower extremity edema Pulmonary emphysema, unspecified emphysema type ([facility])- Primary Primary hypertension ([facility]) Unspecified essential hypertension Class 3 severe obesity with serious comorbidity and body mass index (BMI) of 50.0 to 59.9 in adult, unspecified obesity type Obstructive sleep apnea Obstructive sleep apnea (adult) (pediatric) Pulmonary hypertension ([facility]) Other chronic pulmonary heart diseases Tobacco user Tobacco use disorder Cardiomegaly Primary hypertension ([facility])- Primary Unspecified essential hypertension Gastroesophageal reflux disease, unspecified whether esophagitis present Type 2 diabetes mellitus with complication, with long-term current use of insulin ([facility]) Mixed hyperlipidemia ([facility]) Mixed hyperlipidemia Tobacco user Tobacco use disorder Encounter for screening mammogram for malignant neoplasm of breast Chronic obstructive pulmonary disease, unspecified Other specified chronic obstructive pulmonary disease Anxiety and depression ([facility]) Edema, unspecified Edema Hyperlipidemia, unspecified ([facility]) Diabetic polyneuropathy associated with type 2 diabetes mellitus ([facility]) Gout, unspecified cause, unspecified chronicity, unspecified site Non-seasonal allergic rhinitis, unspecified trigger Bilateral lower extremity edema COPD exacerbation ([facility]) Obstructive chronic bronchitis with exacerbation Pulmonary emphysema, unspecified emphysema type ([facility]) Venous insufficiency Unspecified venous (peripheral) insufficiency Candidiasis of breast COPD exacerbation ([facility])- Primary Obstructive chronic bronchitis with exacerbation Pulmonary hypertension ([facility]) Other chronic pulmonary heart diseases Class 3 severe obesity with serious comorbidity and body mass index (BMI) of 50.0 to 59.9 in adult, unspecified obesity type Encounter for subsequent annual wellness visit (AWV) in Medicare patient- Primary Type 2 diabetes mellitus with unspecified complications Pulmonary emphysema, unspecified emphysema type ([facility]) Moderate persistent asthma without complication ([facility]) Primary hypertension ([facility]) Unspecified essential hypertension Type 2 diabetes mellitus with complication, with long-term current use of insulin ([facility]) Class 3 severe obesity with serious comorbidity and body mass index (BMI) of 50.0 to 59.9 in adult, unspecified obesity type Tobacco user Tobacco use disorder Other headache syndrome Malignant neoplasm of cervix uteri, unspecified Other specified disorders of adrenal gland Major depressive disorder, single episode, mild (HCC) ([facility]) Major depressive disorder, single episode, mild 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 exposed Chronic respiratory failure, unspecified whether with hypoxia or hypercapnia Disorder of adrenal gland, unspecified Non-pressure chronic ulcer of other part of right lower leg limited to breakdown of skin ([facility]) Non-recurrent acute suppurative otitis media of left ear without spontaneous rupture of tympanic membrane Primary hypertension ([facility])- Primary Unspecified essential hypertension Insomnia Insomnia, unspecified Type 2 diabetes mellitus with complication, with long-term current use of insulin ([facility]) Non-seasonal allergic rhinitis, unspecified trigger Type 2 diabetes mellitus with unspecified complications Anxiety and depression ([facility]) Gastro-esophageal reflux disease without esophagitis Edema, unspecified Edema Diabetic polyneuropathy associated with type 2 diabetes mellitus ([facility]) Chronic obstructive pulmonary disease, unspecified Pulmonary emphysema, unspecified emphysema type ([facility]) Bilateral lower extremity edema Tobacco user Tobacco use disorder Hyperpigmentation of skin Other dyschromia Primary hypertension ([facility])- Primary Unspecified essential hypertension Diabetic polyneuropathy associated with type 2 diabetes mellitus ([facility]) Pulmonary emphysema, unspecified emphysema type ([facility]) Critical limb ischemia of right lower extremity ([facility]) PAD (peripheral artery disease) ([facility]) Unspecified peripheral vascular disease Gastroesophageal reflux disease, unspecified whether esophagitis present Bilateral lower extremity edema Venous ulcer of right leg ([facility]) Type 2 diabetes mellitus with complication, with long-term current use of insulin ([facility]) Tobacco user Tobacco use disorder Encounter for smoking cessation counseling Kidney stone Calculus of kidney Adrenal mass 1 cm to 4 cm in diameter ([facility]) Radiculopathy, lumbar region Thoracic or lumbosacral neuritis or radiculitis, unspecified Non-seasonal allergic rhinitis, unspecified trigger Type 2 diabetes mellitus with unspecified complications Anxiety and depression ([facility])- Primary Morbid (severe) obesity due to excess calories ([facility]) Body mass index (BMI) 50.0-59.9, adult ([facility]) Malignant neoplasm of cervix uteri, unspecified Diabetic polyneuropathy associated with type 2 diabetes mellitus ([facility]) Chronic diastolic heart failure ([facility]) Chronic diastolic heart failure Primary hypertension ([facility]) Unspecified essential hypertension 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 Gastroesophageal reflux disease, unspecified whether esophagitis present Bilateral lower extremity edema Type 2 diabetes mellitus with complication, with long-term current use of insulin ([facility]) Tobacco user Tobacco use disorder Mixed hyperlipidemia ([facility]) Mixed hyperlipidemia Gout, unspecified cause, unspecified chronicity, unspecified site Vitamin deficiency Unspecified vitamin deficiency Gastro-esophageal reflux disease without esophagitis Edema, unspecified Edema Hyperlipidemia, unspecified ([facility]) Encounter for smoking cessation counseling Venous ulcer of right leg ([facility]) Antibiotic-induced yeast infection Primary hypertension ([facility])- Primary Unspecified essential hypertension Diabetic polyneuropathy associated with type 2 diabetes mellitus ([facility]) Chronic diastolic heart failure ([facility]) Chronic diastolic heart failure Bilateral lower extremity edema Morbid (severe) obesity due to excess calories ([facility]) Type 2 diabetes mellitus with complication, with long-term current use of insulin ([facility]) [place] [place] Cigarette nicotine dependence without complication Encounter for screening mammogram for malignant neoplasm of breast Insomnia Insomnia, unspecified Non-seasonal allergic rhinitis, unspecified trigger Type 2 diabetes mellitus with unspecified complications Vitamin D deficiency, unspecified Gastro-esophageal reflux disease without esophagitis PAD (peripheral artery disease) ([facility]) Unspecified peripheral vascular disease Gastroesophageal reflux disease, unspecified whether esophagitis present Venous ulcer of right leg ([facility]) documented in this encounter [facility] HealthcareEvaluation note* Diagnosis Obstructive sleep apnea- Primary Obstructive sleep apnea (adult) (pediatric) Pulmonary emphysema, unspecified emphysema type (HCC) Primary hypertension Unspecified essential hypertension Type 2 diabetes mellitus with complication, with long-term current use of insulin ([facility]) Anxiety and depression Bilateral lower extremity edema Pulmonary emphysema, unspecified emphysema type (HCC)- Primary Primary hypertension Unspecified essential hypertension Class 3 severe obesity with serious comorbidity and body mass index (BMI) of 50.0 to 59.9 in adult, unspecified obesity type ([facility]) Obstructive sleep apnea Obstructive sleep apnea (adult) (pediatric) Pulmonary hypertension (HCC) Other chronic pulmonary heart diseases Tobacco user Tobacco use disorder Cardiomegaly Primary hypertension- Primary Unspecified essential hypertension Gastroesophageal reflux disease, unspecified whether esophagitis present Type 2 diabetes mellitus with complication, with long-term current use of insulin ([facility]) Mixed hyperlipidemia Mixed hyperlipidemia Tobacco user Tobacco use disorder Encounter for screening mammogram for malignant neoplasm of breast Chronic obstructive pulmonary disease, unspecified (HCC) Other specified chronic obstructive pulmonary disease (HCC) Anxiety and depression Edema, unspecified Edema Hyperlipidemia, unspecified Diabetic polyneuropathy associated with type 2 diabetes mellitus (HCC) Gout, unspecified cause, unspecified chronicity, unspecified site Non-seasonal allergic rhinitis, unspecified trigger Bilateral lower extremity edema COPD exacerbation (HCC) Obstructive chronic bronchitis with exacerbation Pulmonary emphysema, unspecified emphysema type (HCC) Venous insufficiency Unspecified venous (peripheral) insufficiency Candidiasis of breast COPD exacerbation (HCC)- Primary Obstructive chronic bronchitis with exacerbation Pulmonary hypertension (HCC) Other chronic pulmonary heart diseases Class 3 severe obesity with serious comorbidity and body mass index (BMI) of 50.0 to 59.9 in adult, unspecified obesity type [place] [place] Encounter for subsequent annual wellness visit (AWV) in Medicare patient- Primary Type 2 diabetes mellitus with unspecified complications (HCC) Pulmonary emphysema, unspecified emphysema type (HCC) Moderate persistent asthma without complication (HCC) Primary hypertension Unspecified essential hypertension Type 2 diabetes mellitus with complication, with long-term current use of insulin ([facility]) Class 3 severe obesity with serious comorbidity and body mass index (BMI) of 50.0 to 59.9 in adult, unspecified obesity type ([facility]) Tobacco user Tobacco use disorder Other headache syndrome Malignant neoplasm of cervix uteri, unspecified (HCC) Other specified disorders of adrenal gland (HCC) Major depressive disorder, single episode, mild Major depressive disorder, single episode, mild 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 exposed (HCC) Chronic respiratory failure, unspecified whether with hypoxia or hypercapnia (HCC) Disorder of adrenal gland, unspecified (HCC) Non-pressure chronic ulcer of other part of right lower leg limited to breakdown of skin (HCC) Non-recurrent acute suppurative otitis media of left ear without spontaneous rupture of tympanic membrane Primary hypertension- Primary Unspecified essential hypertension Insomnia Insomnia, unspecified Type 2 diabetes mellitus with complication, with long-term current use of insulin (HCC) Non-seasonal allergic rhinitis, unspecified trigger Type 2 diabetes mellitus with unspecified complications (HCC) Anxiety and depression Gastro-esophageal reflux disease without esophagitis Edema, unspecified Edema Diabetic polyneuropathy associated with type 2 diabetes mellitus (HCC) Chronic obstructive pulmonary disease, unspecified (HCC) Pulmonary emphysema, unspecified emphysema type (HCC) Bilateral lower extremity edema Tobacco user Tobacco use disorder Hyperpigmentation of skin Other dyschromia Primary hypertension- Primary Unspecified essential hypertension Diabetic polyneuropathy associated with type 2 diabetes mellitus ([facility]) Pulmonary emphysema, unspecified emphysema type ([facility]) Critical limb ischemia of right lower extremity ([facility]) PAD (peripheral artery disease) Unspecified peripheral vascular disease Gastroesophageal reflux disease, unspecified whether esophagitis present Bilateral lower extremity edema Venous ulcer of right leg ([facility]) Type 2 diabetes mellitus with complication, with long-term current use of insulin ([facility]) Tobacco user Tobacco use disorder Encounter for smoking cessation counseling Kidney stone Calculus of kidney Adrenal mass 1 cm to 4 cm in diameter ([facility]) Radiculopathy, lumbar region Thoracic or lumbosacral neuritis or radiculitis, unspecified Non-seasonal allergic rhinitis, unspecified trigger Type 2 diabetes mellitus with unspecified complications ([facility]) Anxiety and depression- Primary Morbid (severe) obesity due to excess calories ([facility] [place] Body mass index (BMI) 50.0-59.9, adult ([facility] [place] Malignant neoplasm of cervix uteri, unspecified ([facility]) Diabetic polyneuropathy associated with type 2 diabetes mellitus ([facility]) Chronic diastolic heart failure (HCC) Chronic diastolic heart failure Primary hypertension Unspecified essential hypertension 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 ([facility]) Gastroesophageal reflux disease, unspecified whether esophagitis present Bilateral lower extremity edema Type 2 diabetes mellitus with complication, with long-term current use of insulin ([facility]) Tobacco user Tobacco use disorder Mixed hyperlipidemia Mixed hyperlipidemia Gout, unspecified cause, unspecified chronicity, unspecified site Vitamin deficiency Unspecified vitamin deficiency Gastro-esophageal reflux disease without esophagitis Edema, unspecified Edema Hyperlipidemia, unspecified Encounter for smoking cessation counseling Venous ulcer of right leg ([facility]) Antibiotic-induced yeast infection Primary hypertension- Primary Unspecified essential hypertension Diabetic polyneuropathy associated with type 2 diabetes mellitus (HCC) Chronic diastolic heart failure (HCC) Chronic diastolic heart failure Bilateral lower extremity edema Morbid (severe) obesity due to excess calories ([facility] [place] Type 2 diabetes mellitus with complication, with long-term current use of insulin ([facility]) Anxiety and depression Cigarette nicotine dependence without complication Encounter for screening mammogram for malignant neoplasm of breast Insomnia Insomnia, unspecified Non-seasonal allergic rhinitis, unspecified trigger Type 2 diabetes mellitus with unspecified complications ([facility]) Vitamin D deficiency, unspecified Gastro-esophageal reflux disease without esophagitis PAD (peripheral artery disease) Unspecified peripheral vascular disease Gastroesophageal reflux disease, unspecified whether esophagitis present Venous ulcer of right leg ([facility]) Cellulitis of left lower extremity- Primary COPD exacerbation (HCC) Obstructive chronic bronchitis with exacerbation Primary hypertension Unspecified essential hypertension Pulmonary hypertension (HCC) Other chronic pulmonary heart diseases Morbid (severe) obesity due to excess calories ([facility]) Type 2 diabetes mellitus with complication, with long-term current use of insulin ([facility]) Anxiety and depression Fever, unspecified fever cause Hyperlipidemia, unspecified Tobacco user Tobacco use disorder Encounter for smoking cessation counseling documented in this encounter [facility] HealthcareEvaluation note* Diagnosis Obstructive sleep apnea- Primary Obstructive sleep apnea (adult) (pediatric) Pulmonary emphysema, unspecified emphysema type ([facility]) Primary hypertension ([facility]) Unspecified essential hypertension Type 2 diabetes mellitus with complication, with long-term current use of insulin ([facility]) Anxiety and depression ([facility]) Bilateral lower extremity edema Pulmonary emphysema, unspecified emphysema type ([facility]/HCC)- Primary Primary hypertension ([facility]) Unspecified essential hypertension Class 3 severe obesity with serious comorbidity and body mass index (BMI) of 50.0 to 59.9 in adult, unspecified obesity type Obstructive sleep apnea Obstructive sleep apnea (adult) (pediatric) Pulmonary hypertension ([facility]) Other chronic pulmonary heart diseases Tobacco user Tobacco use disorder Cardiomegaly Primary hypertension ([facility])- Primary Unspecified essential hypertension Gastroesophageal reflux disease, unspecified whether esophagitis present Type 2 diabetes mellitus with complication, with long-term current use of insulin ([facility]) Mixed hyperlipidemia ([facility]) Mixed hyperlipidemia Tobacco user Tobacco use disorder Encounter for screening mammogram for malignant neoplasm of breast Chronic obstructive pulmonary disease, unspecified Other specified chronic obstructive pulmonary disease Anxiety and depression ([facility]) Edema, unspecified Edema Hyperlipidemia, unspecified ([facility]) Diabetic polyneuropathy associated with type 2 diabetes mellitus ([facility]) Gout, unspecified cause, unspecified chronicity, unspecified site Non-seasonal allergic rhinitis, unspecified trigger Bilateral lower extremity edema COPD exacerbation ([facility]) Obstructive chronic bronchitis with exacerbation Pulmonary emphysema, unspecified emphysema type ([facility]/HCC) Venous insufficiency Unspecified venous (peripheral) insufficiency Candidiasis of breast COPD exacerbation ([facility])- Primary Obstructive chronic bronchitis with exacerbation Pulmonary hypertension ([facility]) Other chronic pulmonary heart diseases Class 3 severe obesity with serious comorbidity and body mass index (BMI) of 50.0 to 59.9 in adult, unspecified obesity type Encounter for subsequent annual wellness visit (AWV) in Medicare patient- Primary Type 2 diabetes mellitus with unspecified complications Pulmonary emphysema, unspecified emphysema type ([facility]) Moderate persistent asthma without complication ([facility]) Primary hypertension ([facility]) Unspecified essential hypertension Type 2 diabetes mellitus with complication, with long-term current use of insulin ([facility]) Class 3 severe obesity with serious comorbidity and body mass index (BMI) of 50.0 to 59.9 in adult, unspecified obesity type Tobacco user Tobacco use disorder Other headache syndrome Malignant neoplasm of cervix uteri, unspecified Other specified disorders of adrenal gland Major depressive disorder, single episode, mild (HCC) ([facility]) Major depressive disorder, single episode, mild 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 exposed Chronic respiratory failure, unspecified whether with hypoxia or hypercapnia Disorder of adrenal gland, unspecified Non-pressure chronic ulcer of other part of right lower leg limited to breakdown of skin ([facility]) Non-recurrent acute suppurative otitis media of left ear without spontaneous rupture of tympanic membrane Primary hypertension ([facility])- Primary Unspecified essential hypertension Insomnia Insomnia, unspecified Type 2 diabetes mellitus with complication, with long-term current use of insulin ([facility]) Non-seasonal allergic rhinitis, unspecified trigger Type 2 diabetes mellitus with unspecified complications Anxiety and depression ([facility]) Gastro-esophageal reflux disease without esophagitis Edema, unspecified Edema Diabetic polyneuropathy associated with type 2 diabetes mellitus ([facility]) Chronic obstructive pulmonary disease, unspecified Pulmonary emphysema, unspecified emphysema type (CMS/HCC) Bilateral lower extremity edema Tobacco user Tobacco use disorder Hyperpigmentation of skin Other dyschromia Primary hypertension (CMS/[facility])- Primary Unspecified essential hypertension Diabetic polyneuropathy associated with type 2 diabetes mellitus (CMS/[facility]) Pulmonary emphysema, unspecified emphysema type ([facility]/HCC) Critical limb ischemia of right lower extremity ([facility]) PAD (peripheral artery disease) ([facility]) Unspecified peripheral vascular disease Gastroesophageal reflux disease, unspecified whether esophagitis present Bilateral lower extremity edema Venous ulcer of right leg ([facility]) Type 2 diabetes mellitus with complication, with long-term current use of insulin ([facility]) Tobacco user Tobacco use disorder Encounter for smoking cessation counseling Kidney stone Calculus of kidney Adrenal mass 1 cm to 4 cm in diameter ([facility]) Radiculopathy, lumbar region Thoracic or lumbosacral neuritis or radiculitis, unspecified Non-seasonal allergic rhinitis, unspecified trigger Type 2 diabetes mellitus with unspecified complications Anxiety and depression ([facility])- Primary Morbid (severe) obesity due to excess calories ([facility]) Body mass index (BMI) 50.0-59.9, adult ([facility]) Malignant neoplasm of cervix uteri, unspecified Diabetic polyneuropathy associated with type 2 diabetes mellitus ([facility]) Chronic diastolic heart failure ([facility]) Chronic diastolic heart failure Primary hypertension ([facility]) Unspecified essential hypertension 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 Gastroesophageal reflux disease, unspecified whether esophagitis present Bilateral lower extremity edema Type 2 diabetes mellitus with complication, with long-term current use of insulin ([facility]) Tobacco user Tobacco use disorder Mixed hyperlipidemia ([facility]) Mixed hyperlipidemia Gout, unspecified cause, unspecified chronicity, unspecified site Vitamin deficiency Unspecified vitamin deficiency Gastro-esophageal reflux disease without esophagitis Edema, unspecified Edema Hyperlipidemia, unspecified ([facility]) Encounter for smoking cessation counseling Venous ulcer of right leg ([facility]) Antibiotic-induced yeast infection Primary hypertension ([facility])- Primary Unspecified essential hypertension Diabetic polyneuropathy associated with type 2 diabetes mellitus ([facility]) Chronic diastolic heart failure ([facility]) Chronic diastolic heart failure Bilateral lower extremity edema Morbid (severe) obesity due to excess calories ([facility]) Type 2 diabetes mellitus with complication, with long-term current use of insulin ([facility]) Anxiety and depression ([facility]) Cigarette nicotine dependence without complication Encounter for screening mammogram for malignant neoplasm of breast Insomnia Insomnia, unspecified Non-seasonal allergic rhinitis, unspecified trigger Type 2 diabetes mellitus with unspecified complications Vitamin D deficiency, unspecified Gastro-esophageal reflux disease without esophagitis PAD (peripheral artery disease) ([facility]) Unspecified peripheral vascular disease Gastroesophageal reflux disease, unspecified whether esophagitis present Venous ulcer of right leg ([facility]) Cellulitis of left lower extremity- Primary COPD exacerbation ([facility]) Obstructive chronic bronchitis with exacerbation Primary hypertension ([facility]) Unspecified essential hypertension Pulmonary hypertension ([facility]) Other chronic pulmonary heart diseases Morbid (severe) obesity due to excess calories (CMS/HCC) Type 2 diabetes mellitus with complication, with long-term current use of insulin (CMS/HCC) Anxiety and depression (CMS/[facility]) Fever, unspecified fever cause documented in this encounter [facility]* Diagnosis Obstructive sleep apnea- Primary Obstructive sleep apnea (adult) (pediatric) Pulmonary emphysema, unspecified emphysema type (HCC) Primary hypertension Unspecified essential hypertension Type 2 diabetes mellitus with complication, with long-term current use of insulin (HCC) Anxiety and depression Bilateral lower extremity edema Pulmonary emphysema, unspecified emphysema type (HCC)- Primary Primary hypertension Unspecified essential hypertension Class 3 severe obesity with serious comorbidity and body mass index (BMI) of 50.0 to 59.9 in adult, unspecified obesity type ([facility]) Obstructive sleep apnea Obstructive sleep [...] associated with type 2 diabetes mellitus (HCC) Gout, unspecified cause, unspecified chronicity, unspecified site Non-seasonal allergic rhinitis, unspecified trigger Bilateral lower extremity edema COPD exacerbation (HCC) Obstructive chronic bronchitis with exacerbation Pulmonary emphysema, unspecified emphysema type (HCC) Venous insufficiency Unspecified venous (peripheral) insufficiency Candidiasis of breast COPD exacerbation (HCC)- Primary Obstructive chronic bronchitis with exacerbation Pulmonary hypertension (HCC) Other chronic pulmonary heart diseases Class 3 severe obesity with serious comorbidity and body mass index (BMI) of 50.0 to 59.9 in adult, unspecified obesity type ([facility]) Encounter for subsequent annual wellness visit (AWV) in Medicare patient- Primary Type 2 diabetes mellitus with unspecified complications (HCC) Pulmonary emphysema, unspecified emphysema type (HCC) Moderate persistent asthma without complication (HCC) Primary hypertension Unspecified essential hypertension Type 2 diabetes mellitus with complication, with long-term current use of insulin (HCC) Class 3 severe obesity with serious comorbidity and body mass index (BMI) of 50.0 to 59.9 in adult, unspecified obesity type ([facility]) Tobacco user Tobacco use disorder Other headache syndrome Malignant neoplasm of cervix uteri, unspecified ([facility]) Other specified disorders of adrenal gland ([facility]) Major depressive disorder, single episode, mild Major depressive disorder, single episode, mild 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 exposed ([facility]) Chronic respiratory failure, unspecified whether with hypoxia or hypercapnia ([facility]) Disorder of adrenal gland, unspecified ([facility]) Non-pressure chronic ulcer of other part of right lower leg limited to breakdown of skin ([facility]) Non-recurrent acute suppurative otitis media of left ear without spontaneous rupture of tympanic membrane Primary hypertension- Primary Unspecified essential hypertension Insomnia Insomnia, unspecified Type 2 diabetes mellitus with complication, with long-term current use of insulin ([facility]) Non-seasonal allergic rhinitis, unspecified trigger Type 2 diabetes mellitus with unspecified complications ([facility]) Anxiety and depression Gastro-esophageal reflux disease without esophagitis Edema, unspecified Edema Diabetic polyneuropathy associated with type 2 diabetes mellitus ([facility]) Chronic obstructive pulmonary disease, unspecified ([facility]) Pulmonary emphysema, unspecified emphysema type ([facility]) Bilateral lower extremity edema Tobacco user Tobacco use disorder Hyperpigmentation of skin Other dyschromia Primary hypertension- Primary Unspecified essential hypertension Diabetic polyneuropathy associated with type 2 diabetes mellitus ([facility]) Pulmonary emphysema, unspecified emphysema type ([facility]) Critical limb ischemia of right lower extremity ([facility]) PAD (peripheral artery disease) Unspecified peripheral vascular disease Gastroesophageal reflux disease, unspecified whether esophagitis present Bilateral lower extremity edema Venous ulcer of right leg ([facility]) Type 2 diabetes mellitus with complication, with long-term current use of insulin ([facility]) Tobacco user Tobacco use disorder Encounter for smoking cessation counseling Kidney stone Calculus of kidney Adrenal mass 1 cm to 4 cm in diameter ([facility]) Radiculopathy, lumbar region Thoracic or lumbosacral neuritis or radiculitis, unspecified Non-seasonal allergic rhinitis, unspecified trigger Type 2 diabetes mellitus with unspecified complications ([facility]) Anxiety and depression- Primary Morbid (severe) obesity due to excess calories ([facility]) Body mass index (BMI) 50.0-59.9, adult ([facility]) Malignant neoplasm of cervix uteri, unspecified ([facility]) Diabetic polyneuropathy associated with type 2 diabetes mellitus ([facility]) Chronic diastolic heart failure (HCC) Chronic diastolic [...] Morbid (severe) obesity due to excess calories ([facility]) Type 2 diabetes mellitus with [...] Morbid (severe) obesity due to excess calories ([facility]) Type 2 diabetes mellitus with complication, with long-term current use of insulin (HCC) Anxiety and depression Fever, unspecified fever cause Encounter for subsequent annual wellness visit (AWV) [...] polyneuropathy associated with type 2 diabetes mellitus ([facility]) Pulmonary emphysema, unspecified emphysema type ([facility]) Moderate persistent asthma without complication (HCC) Insomnia Insomnia, unspecified Non-seasonal allergic rhinitis, unspecified trigger Type 2 diabetes mellitus with unspecified complications (HCC) Anxiety and depression Antibiotic-induced yeast infection Chronic obstructive pulmonary disease, unspecified (HCC) Hyperlipidemia, unspecified Vaginal yeast infection Candidiasis of vulva and vagina Morbid (severe) obesity due to excess calories ([facility]-H[facility]) Type 2 diabetes mellitus with hyperglycemia, with long-term current use of insulin (HCC) documented in this encounter [facility] HealthcareEvaluation [facility]* Diagnosis Obstructive sleep apnea- Primary Obstructive sleep apnea (adult) (pediatric) Pulmonary emphysema, unspecified emphysema type (HCC) Primary hypertension Unspecified essential hypertension Type 2 diabetes mellitus with complication, with long-term current use of insulin (HCC) Anxiety and depression Bilateral lower extremity edema Pulmonary emphysema, unspecified emphysema type (HCC)- Primary Primary hypertension Unspecified essential hypertension Class 3 severe obesity with serious comorbidity and body mass index (BMI) of 50.0 to 59.9 in adult, unspecified obesity type ([facility]) Obstructive sleep apnea Obstructive sleep [...] associated with type 2 diabetes mellitus (HCC) Gout, unspecified cause, unspecified chronicity, unspecified site Non-seasonal allergic rhinitis, unspecified trigger Bilateral lower extremity edema COPD exacerbation (HCC) Obstructive chronic bronchitis with exacerbation Pulmonary emphysema, unspecified emphysema type (HCC) Venous insufficiency Unspecified venous (peripheral) insufficiency Candidiasis of breast COPD exacerbation (HCC)- Primary Obstructive chronic bronchitis with exacerbation Pulmonary hypertension (HCC) Other chronic pulmonary heart diseases Class 3 severe obesity with serious comorbidity and body mass index (BMI) of 50.0 to 59.9 in adult, unspecified obesity type ([facility]) Encounter for subsequent annual wellness visit (AWV) in Medicare patient- Primary Type 2 diabetes mellitus with unspecified complications (HCC) Pulmonary emphysema, unspecified emphysema type (HCC) Moderate persistent asthma without complication (HCC) Primary hypertension Unspecified essential hypertension Type 2 diabetes mellitus with complication, with long-term current use of insulin (HCC) Class 3 severe obesity with serious comorbidity and body mass index (BMI) of 50.0 to 59.9 in adult, unspecified obesity type ([facility]) Tobacco user Tobacco use disorder Other headache syndrome Malignant neoplasm of cervix uteri, unspecified (HCC) Other specified disorders of adrenal gland ([facility]) Major depressive disorder, single episode, mild Major depressive disorder, single episode, mild 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 exposed ([facility]) Chronic respiratory failure, unspecified whether with hypoxia or hypercapnia ([facility]) Disorder of adrenal gland, unspecified ([facility]) Non-pressure chronic ulcer of other part of right lower leg limited to breakdown of skin ([facility]) Non-recurrent acute suppurative otitis media of left ear without spontaneous rupture of tympanic membrane Primary hypertension- Primary Unspecified essential hypertension Insomnia Insomnia, unspecified Type 2 diabetes mellitus with complication, with long-term current use of insulin ([facility]) Non-seasonal allergic rhinitis, unspecified trigger Type 2 diabetes mellitus with unspecified complications ([facility]) Anxiety and depression Gastro-esophageal reflux disease without esophagitis Edema, unspecified Edema Diabetic polyneuropathy associated with type 2 diabetes mellitus ([facility]) Chronic obstructive pulmonary disease, unspecified ([facility]) Pulmonary emphysema, unspecified emphysema type ([facility]) Bilateral lower extremity edema Tobacco user Tobacco use disorder Hyperpigmentation of skin Other dyschromia Primary hypertension- Primary Unspecified essential hypertension Diabetic polyneuropathy associated with type 2 diabetes mellitus ([facility]) Pulmonary emphysema, unspecified emphysema type ([facility]) Critical limb ischemia of right lower extremity ([facility]) PAD (peripheral artery disease) Unspecified peripheral vascular disease Gastroesophageal reflux disease, unspecified whether esophagitis present Bilateral lower extremity edema Venous ulcer of right leg ([facility]) Type 2 diabetes mellitus with complication, with long-term current use of insulin ([facility]) Tobacco user Tobacco use disorder Encounter for smoking cessation counseling Kidney stone Calculus of kidney Adrenal mass 1 cm to 4 cm in diameter ([facility]) Radiculopathy, lumbar region Thoracic or lumbosacral neuritis or radiculitis, unspecified Non-seasonal allergic rhinitis, unspecified trigger Type 2 diabetes mellitus with unspecified complications ([facility]) Anxiety and depression- Primary Morbid (severe) obesity due to excess calories ([facility]) Body mass index (BMI) 50.0-59.9, adult ([facility]) Malignant neoplasm of cervix uteri, unspecified ([facility]) Diabetic polyneuropathy associated with type 2 diabetes mellitus ([facility]) Chronic diastolic heart failure (HCC) Chronic diastolic [...] Morbid (severe) obesity due to excess calories ([facility]) Type 2 diabetes mellitus with [...] Morbid (severe) obesity due to excess calories ([facility]) Type 2 diabetes mellitus with complication, with long-term current use of insulin (HCC) Anxiety and depression Fever, unspecified fever cause Encounter for subsequent annual wellness visit (AWV) [...] Morbid (severe) obesity due to excess calories ([facility]) Encounter for dietary consultation- Primary Type 2 diabetes mellitus with hyperglycemia, with long-term current use of insulin (HCC) Vitamin D deficiency Primary hypertension Unspecified essential hypertension Insulin long-term use ([facility]) Encounter for long-term (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 Hyperlipemia, mixed Mixed hyperlipidemia Microalbuminuria Proteinuria Class 3 severe obesity due to excess calories with serious comorbidity and body mass index (BMI) of 50.0 to 59.9 in adult ([facility]) documented in this encounter [facility] [...] History sepsis 2010 Hospitalization History SEE ABOVE [employer] Other Hospital course Narrative No data available for this section [facility] [facility] progress note No data available for this section [facility] [facility] reason for referral (narrative) , Referral to Dr. Cortés Referred by: REGLA PHIPPS, Elbert Joya [facility] [place] [facility] Advance Directives No Advanced Directives Records FoundDocuments on File Type Date Recorded Patient [employer] Expl anation Advance Directives and Living Will Power of Laboratory Tech Summary Purpose Family History No Family History Records FoundNo Family History Records FoundNo Family History Records FoundNo Family History Records Found No data available for this section No Family History Records FoundNo Family History Records Found Additional Source Comments INFORMATION SOURCE (unrecogn ized section and content) DATE CREATED AUTHOR 10/30/2019 [facility] DATE CREATED AUTHOR AUTHOR'S ORGANIZ ATION 09/15/2020 [facility] DATE CREATED AUTHOR AUTHOR'S ORGANIZ ATION 12/19/2022 [facility] DATE CREATED AUTHOR AUTHOR'S ORGANIZ ATION 06/03/2024 [facility] DATE CREATED AUTHOR AUTHOR'S ORGANIZ ATION 01/30/2025 [facility] EPIC DATE CREATED AUTHOR AUTHOR'S ORGANIZ ATION 02/06/2025 [facility] Care Team (unrecognized sect ion and content) Cyanide Pot Hardener Relationship Specialty Start Date End Date Ty Amin MD PCP - General Family Medicine 01/05/23 [employer]yanide Pot [employer]ener Relationship Specialty Start Date End Date Ty Amin MD PCP - General Family Medicine 01/05/23 Cyanide Pot Hardener Relationship Specialty Start Date End Date Ty Amin MD [address] [place] [phone] PCP - General Family Medicine 09/20/23 Mckayla Blas NP [address] [place] [phone] PCP - [facility] 09/07/23 09/05/90 Mckayla Blas NP [address] [place] [phone] Nurse Practitioner Family Medicine 09/20/23 Cyanide Pot Hardener Relationship Specialty Start Date End Date Ty Amin MD [address] [place] [phone] PCP - General Family Medicine 09/20/23 Mckayla Blas NP [address] [place] [phone] PCP - [facility] 09/07/23 09/05/90 Mckayla Blas NP [address] [place] [phone] Nurse Practitioner Family Medicine 09/20/23 Cyanide Pot Hardener Relationship Specialty Start Date End Date Ty Amin MD [address] [place] [phone] PCP - General Family Medicine 09/20/23 Mckayla Blas NP [address] [place] [phone] PCP [facility] 09/07/23 09/05/90 Mckayla Blas NP [address] [place] [phone] Nurse Practitioner Family Medicine 09/20/23 Cyanide Pot Hardener Relationship Specialty Start Date End Date Ty Amin MD [address] [place] [phone] PCP - General Family [facility] 09/20/23 Mckayla Blas NP [address] [place] [phone] PCP [facility] 09/07/23 09/05/90 Mckayla Blas NP [address] [place] [phone] Nurse Practitioner Family Medicine 09/20/23 Cyanide Pot Hardener Relationship Specialty Start Date End Date Ty Amin MD [address] [place] [phone] PCP - General Family Medicine 09/20/23 Mckayla Blas NP [address] [place] [phone] PCP - [facility] 09/07/23 09/05/90 Mckayla Blas NP [address] [place] [phone] Nurse Practitioner Family Medicine 09/20/23 Cyanide Pot Hardener Relationship Specialty Start Date End Date Ty Amin MD [address] [place] [phone] PCP - General Family Medicine 09/20/23 Mckayla Blas NP [address] [place] [phone] [facility] 09/07/23 09/05/90 Mckayla Blas NP [address] [place] [phone] Nurse Practitioner Family Medicine 09/20/23 Cyanide Pot Hardener Relationship Specialty Start Date End Date Ty Amin MD [address] [place] [phone] PCP - General Family Medicine 09/20/23 Mckayla Blas NP [address] [place] [phone] [facility] 09/07/23 09/05/90 Mckayla Blas NP [address] [place] [phone] Nurse Practitioner Family Medicine 09/20/23 Cyanide Pot Hardener Relationship Specialty Start Date End Date Ty Amin MD [address] [place] [phone] PCP - General Family Medicine 09/20/23 Mckayla Blas NP [address] [place] [phone] PCP [facility] 09/07/23 09/05/90 Mckayla Blas NP [address] [place] [phone] Nurse Practitioner Family Medicine 09/20/23 Cyanide Pot Hardener Relationship Specialty Start Date End Date Ty Amin MD [address] [place] [phone] PCP - General Family [facility] 09/20/23 Mckayla Blas NP [address] [place] [phone] PCP [facility] 09/07/23 09/05/90 Mckayla Blas NP [address] [place] [phone] Nurse Practitioner Family Medicine 09/20/23 Cyanide Pot Hardener Relationship Specialty Start Date End Date Ty Amin MD [address] [place] [phone] PCP - General Family Medicine 09/20/23 Mckayla Blas NP [address] [place] [phone] [facility] - [facility] [facility] 09/07/23 09/05/90 Mckayla Blas NP [address] [place] [address] Nurse Practitioner Family Medicine 09/20/23 Cyanide Pot Hardener Relationship Specialty Start Date End Date Ty Amin MD [address] [place] [address] PCP - General Family Medicine 09/20/23 Mckayla Blas NP [address] [place] [address] [facility] 09/07/23 09/05/90 Mckayla Blas NP [address] [place] [address] Nurse Practitioner Family Medicine 09/20/23 Cyanide Pot Hardener Relationship Specialty Start Date End Date Ty Amin MD [address] [place] [address] PCP - General Family Medicine 09/20/23 Mckayla Blas NP [address] [place] [address] [facility] 09/07/23 09/05/90 Mckayla Blas NP [address] [place] [address] Nurse Practitioner Family Medicine 09/20/23 Cyanide Pot Hardener Relationship Specialty Start Date End Date Ty Amin MD [address] [place] [address] PCP - General Family Medicine 09/20/23 Mckayla Blas NP [address] [place] [address] PCP [facility] 09/07/23 09/05/90 Mckayla Blas NP [address] [place] [address] Nurse Practitioner Family Medicine 09/20/23 Cyanide Pot Hardener Relationship Specialty Start Date End Date Ty Amin MD [address] [place] [address] PCP - General Family [facility] 09/20/23 Mckayla Blas NP [address] [place] [address] PCP [facility] 09/07/23 09/05/90 Mckayla Blas NP [address] [place] [address] Nurse Practitioner Family Medicine 09/20/23 Cyanide Pot Hardener Relationship Specialty Start Date End Date Ty Amin MD [address] [place] [address] PCP - General Family Medicine 09/20/23 Mckayla Blas NP [address] [place] [address] PCP - [facility] 09/07/23 09/05/90 Mckayla Blas NP [address] [place] [address] Nurse Practitioner Family Medicine 09/20/23 Cyanide Pot Hardener Relationship Specialty Start Date End Date Ty Amin MD [address] [place] [address] PCP - General Family Medicine 09/20/23 Mckayla Blas NP [address] [place] [address] [facility] 09/07/23 09/05/90 Mckayla Blas NP [address] [place] [address] Nurse Practitioner Family Medicine 09/20/23 Cyanide Pot Hardener Relationship Specialty Start Date End Date Ty Amin MD [address] [place] [address] PCP - General Family Medicine 09/20/23 Mckayla Blas NP [address] [place] [address] [facility] 09/07/23 09/05/90 Mckayla Blas NP [address] [place] [address] Nurse Practitioner Family Medicine 09/20/23 Cyanide Pot Hardener Relationship Specialty Start Date End Date Ty Amin MD [address] [place] [address] PCP - General Family Medicine 09/20/23 Mckayla Blas NP [address] [place] [address] PCP [facility] 09/07/23 09/05/90 Mckayla Blas NP [address] [place] [address] Nurse Practitioner Family Medicine 09/20/23 Cyanide Pot Hardener Relationship Specialty Start Date End Date Ty Amin MD [address] [place] [address] PCP - General Family [facility] 09/20/23 Mckayla Blas NP [address] [place] [address] PCP [facility] 09/07/23 09/05/90 Mckayla Blas NP [address] [place] [address] Nurse Practitioner Family Medicine 09/20/23 Cyanide Pot Hardener Relationship Specialty Start Date End Date Ty Amin MD [address] [place] [address] PCP - General Family Medicine 09/20/23 Mckayla Blas NP [address] [place] [address] PCP - [facility] 09/07/23 09/05/90 Mckayla Blas NP [address] [place] [address] Nurse Practitioner Family Medicine 09/20/23 Cyanide Pot Hardener Relationship Specialty Start Date End Date Ty Amin MD [address] [place] [address] PCP - General Family Medicine 09/20/23 Mckayla Blas NP [address] [place] [address] Nurse Practitioner Family Medicine 09/20/23 Cyanide Pot Hardener Relationship Specialty Start Date End Date Ty Amin MD [address] [place] [address] PCP - General Family Medicine 09/20/23 Mckayla Blas NP [address] [place] [address] Nurse Practitioner Family Medicine 09/20/23 Cyanide Pot Hardener Relationship Specialty Start Date End Date Ty Amin MD [address] [place] [address] PCP - General Family Medicine 09/20/23 Mckayla Blas NP [address] [place] [address] Nurse Practitioner Family Medicine 09/20/23 Cyanide Pot Hardener Relationship Specialty Start Date End Date Ty Amin MD [address] [place] [address] PCP - General Family Medicine 09/20/23 Mckayla Blas NP [address] [place] [address] Nurse Practitioner Family Medicine 09/20/23 REASON FOR VISIT (unrecogniz ed section and content) Reason Comments Med Refill Reason Comments Diabetes Follow-up Reason Comments Hospital Follow-up Reason Comments Medicare Annual Wellness Visit Initial Reason Comments Diabetes FOR RECORDS PERTAINING TO PATIENTS WHO ARE [...] BE BASED ON THE PRIMARY CLINICAL RECORDS. [facility]. provides no warranty or guarantee of the accuracy or completeness of information in this document.
--- NOTE | 2025-02-18 11:03 | PM.CN ---
Consult Note: HPI Data of Consult Patient: known to practice within the last 3 years Requesting Physician: Angela Cochran NP Primary Care Provider: Mckayla Blas NP Consult Narrative Reason for consult: f/u Narrative: Mitzi Macias a pleasant 54 year old female presents for evaluation and management of low back and right hip pain. Today pain /10. Describes it as an aching pain in low back, sharp in right hip, and right leg pain increased with standing, walking, transitioning, stairs. Tolerating current medication regimen well without side effects. Patient has a longstanding hx of low back and leg pain unresponsive to PT/HEP greater than 6 weeks, tylenol, ibuprofen/motrin/aleve, heat/ice, and tylenol. continues to have moderate to severe back and RLE pain. Pt is working on weight loss and smoking cessation. following with wound care for wound of RLE that is not progressing, pending skin graft cc:: CC: Angela Cochran NP Review of Systems ROS Status of ROS 10 or more systems reviewed and unremarkable except as noted in history and below Musculoskeletal Reports: back pain, extremity pain and joint pain PFSH PFS Medical History COPD exacerbation ?J44.1 - Chronic obstructive pulmonary disease with (acute) exacerbation (ICD-10) Influenza A ?J10.1 - Influenza due to other identified influenza virus with other respiratory manifestations (ICD-10) Hypoxia ?R09.02 - Hypoxemia (ICD-10) Hypertension ?I10 - Essential (primary) hypertension (ICD-10) Obesity ?E66.9 - Obesity, unspecified (ICD-10) Amputation toe ?S98.139A - Complete traumatic amputation of one unspecified lesser toe, initial encounter (ICD-10) Neuropathy ?G62.9 - Polyneuropathy, unspecified (ICD-10) Acid reflux ?K21.9 - Gastro-esophageal reflux disease without esophagitis (ICD-10) Diabetes ?E11.9 - Type 2 diabetes mellitus without complications (ICD-10) COPD (chronic obstructive pulmonary disease) ?J44.9 - Chronic obstructive pulmonary disease, unspecified (ICD-10) Asthma ?J45.909 - Unspecified asthma, uncomplicated (ICD-10) High cholesterol ?E78.00 - Pure hypercholesterolemia, unspecified (ICD-10) Surgical History History of hammertoe correction ?Z98.890 - Other specified postprocedural states (ICD-10) ?Z87.39 - Personal history of other diseases of the musculoskeletal system and connective tissue (ICD-10) Hx of cholecystectomy ?Z90.49 - Acquired absence of other specified parts of digestive tract (ICD-10) History of hysterectomy ?Z90.710 - Acquired absence of both cervix and uterus (ICD-10) Social History (Updated 12/04/24 @ 22:27 by Comfort Grimaldo RN) Within the past year, how often did you have a drink containing alcohol: never Within the past year, how often did you have six or more drinks on one occasion: never Score interpretation: A score less than 3 is consistent with normal alcohol consumption. Smoking status: Current some day smoker Second hand tobacco smoke exposure: Yes Non-prescribed substance use: denies use Known occupational exposures/hazards: No Highest level of school completed/degree received: Associate degree: occupational, technical, vocational program Are you now , , , , never or living with a partner: Little interest or pleasure in doing things: not at all Feeling down, depressed, or hopeless: not at all Feel stressed/tense/nervous/anxious/difficulty sleeping: not at all Meds Home Medications and Allergies Home Medications ?Medication ?Instructions ?Recorded ?Confirmed ?Type acetaminophen 500 mg capsule 1,000 mg PO Q6H PRN fever or pain 03/20/23 12/04/24 History amitriptyline 25 mg tablet 25 mg PO DAILY 03/20/23 12/04/24 History aspirin 81 mg tablet,delayed 81 mg PO DAILY 03/20/23 12/04/24 History release (Adult Aspirin Regimen) budesonide-formoterol HFA 160 2 inh inhalation BID 03/20/23 12/04/24 History mcg-4.5 mcg/actuation aerosol inhaler (Symbicort) furosemide 40 mg tablet 40 mg PO DAILY 03/20/23 12/04/24 History insulin aspart U-100 100 unit/mL 1 sliding scale dose subcut 03/20/23 12/04/24 History (3 mL) subcutaneous pen (Novolog USEASDIRECTD FlexPen U-100 Insulin aspart) insulin glargine 100 unit/mL 58 unit subcut BID 03/20/23 12/04/24 History subcutaneous solution (Lantus U-100 Insulin) lisinopril 20 mg tablet 20 mg PO DAILY 03/20/23 12/04/24 History omeprazole 20 mg capsule,delayed 20 mg PO DAILY 03/20/23 12/04/24 History release pregabalin 300 mg capsule 300 mg PO Q12H 03/20/23 12/04/24 History duloxetine 60 mg capsule,delayed 60 mg PO BID #60 caps 04/05/23 12/04/24 Rx release dapagliflozin propanediol 10 mg 10 mg PO .QD 09/10/23 12/04/24 History tablet ergocalciferol (vitamin D2) 1,250 50,000 unit PO QWEEK 09/10/23 12/04/24 History mcg (50,000 unit) capsule potassium chloride 10 mEq 10 meq PO .QD 09/10/23 12/04/24 History capsule,extended release simvastatin 10 mg tablet 10 mg PO QAM 09/10/23 12/04/24 History hydralazine 25 mg tablet 25 mg PO BID #60 tabs 09/13/23 12/04/24 Rx oseltamivir 75 mg capsule 75 mg PO BID #6 caps 09/13/23 12/04/24 Rx baclofen 10 mg tablet 10 mg PO TID 06/24/24 12/04/24 History ammonium lactate 12 % lotion 1 applic topical DAILY 12/04/24 12/05/24 History amoxicillin 875 mg-potassium 1 tab PO Q12H #20 tabs 12/05/24 Rx clavulanate 125 mg tablet prednisone 10 mg tablet 40 mg (4 x 10 mg) PO DAILY #32 tabs 12/05/24 Rx hydrocodone 5 mg-acetaminophen 325 See Rx Instructions .Route 12/11/24 Rx mg tablet .COMPLEX PRN pain #80 tabs pregabalin 150 mg capsule (Lyrica) 150 mg PO DAILY #30 caps 12/11/24 Rx diclofenac sodium 75 mg 75 mg PO BID PRN pain #60 tabs 01/07/25 Rx tablet,delayed release hydrocodone 5 mg-acetaminophen 325 1 tab PO TID PRN pain #80 tabs 01/07/25 Rx mg tablet pregabalin 150 mg capsule (Lyrica) 150 mg PO DAILY #30 caps 01/07/25 Rx baclofen 10 mg tablet See Rx Instructions .Route 01/15/25 Rx .COMPLEX PRN muscle spasm #90 tabs hydrocodone 5 mg-acetaminophen 325 See Rx Instructions .Route 02/11/25 Rx mg tablet .COMPLEX PRN pain #80 tabs pregabalin 150 mg capsule (Lyrica) 150 mg PO DAILY #30 caps 02/11/25 Rx Allergies Allergy/AdvReac Type Severity Reaction Status Date / Time No Known Drug Allergies Allergy Verified 06/10/24 08:21 Exam Constitutional Documenting provider has reviewed patient's vital signs: yes Common normals: no apparent distress, oriented x3, healthy appearing, alert and well nourished General appearance: cooperative HENMT Common normals: normocephalic, hearing grossly normal bilaterally and moist oral mucous membranes Head and scalp: normocephalic Eye Common normals: PERRL Pupil: PERRL Neck & C-Spine Common normals: full ROM General: normal visual inspection Chest Common normals: inspection of chest normal Respiratory Common normals: normal respiratory effort, no retractions and no use of accessory muscles Back & Pelvis Lumbar spine/lower back: ROM limited, pain with ROM and straight leg raise positive right Other: right L4,5,S1 decreased sensation strength 4/5 in RLE and 5/5 in LLE Extremity Right lower extremity: hip joint Other: increased pain with internal/external rotation Neuro Common normals: oriented x3, CN's II-XII intact bilaterally and no sensory deficits noted Sensorium/orientation: alert Gait (neuro): assistive device used (wheelchair) Motor exam: no movement abnormalities noted Psych Common normals: mental status grossly normal, thought process normal, cooperative, affect normal, speech normal and activity/motor behavior normal Speech: normal speech Thought process: normal thought process Results Additional Findings Additional findings: If on a controlled substance or opioids, I have checked an [place]AR[place] report on this patient and there are no aberrancies noted in the prescribing history.??If on a controlled substance or opioid a drug screen was completed and reviewed within the last year, and if there has not been a drug screen completed we ordered one today to monitor higher risk, state monitored pain medication use. As part of providing excellent, safe, comprehensive care, the following was completed at our patient's visit: 1. A medication reconciliation and review to ensure accurate knowledge of current/active medications, including asking our patients to inform us about any [id number] medications or herbal remedies/nutritional supplements/alternative remedies. 2. A review to specifically ensure our patients have had annual screening for screening for depression, screening for tobacco use, and screening for unhealthy alcohol use. For concerning screenings had a discussion with the patient, provided patient education, and recommended follow-up with primary care provider when appropriate. If patient noted with a risk of falling, they received education on strength, gait, and balance training to prevent future risk of falling. Portions of this note may have been carried over from the previous visit and updated as appropriate. Please note this office utilizes paper charting in addition to the electronic medical record. A list of current medications, vitals, and PMH is available there as the clinical staff outside of myself do not have access to [employer] charting during the clinic day operations. As part of providing quality comprehensive care the current medications, vitals, and PMH were reviewed in the paper chart. Assessment and Plan Assessment and Plan (1) Lumbar stenosis with neurogenic claudication: (2) Lumbar degenerative disc disease: (3) Lumbar radiculopathy: (4) Chronic pain syndrome: (5) Chronic prescription opiate use: Assessment and Plan: I feel these medications are improving the patient's quality of life and allow them to tolerate activities of daily living as well as participate in recreational activity.? The patient does not report intolerable side effects. The patient is NOT opioid naive and non-pharmacologic and non-opioid treatment has failed to significantly relieve the patient's pain and improve functionality. The patient has a diagnosis that is related to a somatic or visceral pain etiology. ? ?? I reviewed with the patient the potential risks and side effects with the use of? opioid medications including but not limited to respiratory depression,? sedation, and even . Within the last 12 months I have verified the patient has access to naloxone should? these effects occur. The patient was advised to let? their family know they had Naloxone in case they would need to administer? the medication. I advised the patient to avoid the use of any other? sedation substances including alcohol, THC, and benzodiazepines while? taking opioid medications due to the risk of compounding side effects and? detrimental outcomes. within the last 12 months I have reviewed the DIRECTOR PATIENT ACCOUNTING, pain treatment agreement and urine drug screen.? ?? A drug screen was completed within the last year, and no aberrancies were noted regarding their use of controlled substances. The patient understands they are subject to the terms and conditions of the pain contract that they have signed. ? ?? I have checked an OARRS report on this patient today and there are no aberrancies noted in the prescribing history.? (6) Osteoarthritis of hip: Qualifiers: Osteoarthritis type: unspecified Laterality: unspecified laterality Qualified Code(s): M16.9 - Osteoarthritis of hip, unspecified (7) Chronic right hip pain: Plan continue f/u with wound care, pending skin graft continue pregabalin to 300mg AM, 150mg mid day, 300mg HS. risks vs benefits reviewed. does find improvement in radicular pain with increased dose without side effects continue baclofen 5-10mg TID PRN pain/spasms continue hydrocodone-acetaminophen 5-325mg TID PRN moderate to severe pain 80 tabs month continue diclofenac 75mg BID PRN pain current medication regimen reviewed with pt, risks vs benefits reviewed. defer NS consultation due to risks, current infection and obesity defer injection therapy due to increased risks with open wound and elevated A1c, has improved from prior now 7.2% f/u 3 months for medication management, consider injection therapy
== END 2025-02-18 10:34 | disposition home or self-care (01) ==
PROVIDERS: PCP Nurse Practitioner; Visit Provider Nurse Practitioner
DX: M48.062 Spinal stenosis, lumbar region with neurogenic claudication (principal); M51.369 Other intervertebral disc degeneration, lumbar region without mention of lumbar back pain or lower extremity pain; M54.16 Radiculopathy, lumbar region; G89.4 Chronic pain syndrome; Z79.891 Long term (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 opiate analgesic; M16.9 Osteoarthritis of hip, unspecified; M25.551 Pain in right hip
CPT/HCPCS: G0463

== ENCOUNTER 2025-02-18 13:31 | Outpatient (OUT) | payer MEDICARE, SELFPAY ==
--- OUTSIDE RECORDS SUMMARY | 2025-01-06 11:20 | XMS_ITS | Encounter Summary ---
Author Organization [facility] Address [address] [place] [address] Care Team Providers Care Promotional Model Name Role Phone Mckayla Blas MD Primary Care Provider [phone] Reason for Referral * Imaging (Routine) - Pending Review Specialty Diagnoses / Procedures Referred By Tarun t Referred To Contact Cardiology Diagnoses Chronic diastolic heart failure (CMS/HCC) Procedures Transthoracic echo (TTE) complete Karma Chatterjee CNP [address] [place] [address] Phone: tel: fax: Referral ID Status Reason Start Date Expiration Date Visits Requested Visits Authorized [id number] Pending Review Perform Procedure 01/06/2025 01/06/2026 1 1 Reason for Visit * Reason Comments Congestive Heart Failure Hypertension Hyperlipidemia Encounter Details Date Type Department Care Team (Late st Contact Info) Description 01/06/2025 11:20 AM EDT Office Visit [facility] Heart at [facility] [address] [place] [address] Karma Chatterjee CNP [address] [place] [address] Chronic diastolic heart failure (CMS/HCC) (Primary Dx); Bilateral lower extremity edema; Primary hypertension; Mixed hyperlipidemia; Venous insufficiency; Class 3 severe obesity due to excess calories with serious comorbidity and body mass index (BMI) of 50.0 to 59.9 in adult; Type 2 diabetes mellitus with complication, with long-term current use of insulin ([facility]); Obstructive sleep apnea; LVH (left ventricular hypertrophy) Social History Tobacco Use Types Packs/Day Years [...] Physically or Sexually Abused Not on file Comments Unknown Sex and Gender Information Value Date Recorded Sex Assigned at Not on file Legal Sex Female 10:08 PM EDT Gender Identity Not on file Sexual Orientation Not on file documented as of this encounter Last Filed Vital Signs Vital Sign Reading Time Taken Comments Blood Pressure 124/64 01/06/2025 11:41 AM EDT Pulse 83 01/06/2025 11:41 AM EDT Temperature - - Respiratory Rate - - Oxygen Saturation 93% 01/06/2025 11:41 AM EDT Inhaled Oxygen Concentration - - Weight 171 kg (376 lb) 01/06/2025 11:41 AM EDT Height 170.2 cm (5' 7 ) 01/06/2025 11:41 AM EDT Body Mass Index 58.89 01/06/2025 11:41 AM EDT documented in this encounter Progress Notes * eMgan Tijerina MA - 01/06/2025 11:20 AM EDT Patient is here today for a 6 month follow up. Patient states she just came from wound care for an open wound on here right leg and left leg. Patient states she has had a lot of leg swelling. Patientstates she is doing well cardiac stringer. Patient denies chest pain, dizziness, palpitations. Patient complains of fatigue and leg swelling. Review of Systems Constitutional: Positive for malaise/fatigue and weight gain. Cardiovascular: Positive for leg swelling. * Karma Sen, SAYDA - 01/06/2025 11:20 AM EDT Images from the original note were not included. Cardiovascular Medicine [facility] SUBJECTIVE Chief Complaint Patient presents with Congestive Heart Failure Hypertension Hyperlipidemia Mitzi Macias is a 54 y.o. female here for follow-up. PMHx: HFpEF, HTN, HLD, DM, longstanding heavy smoker, COPD, DANIEL, morbid obesity HPI 01/06/2025 Since last seen she was admitted to [facility] for AMS on 12/05/2024. She was treated for acute exacerbation of COPD secondary to acute bronchitis. She denies any changes cardiac stringer. She has leg swelling, some days worse than others. She takes lasix 40mg daily and she will take an extra 20mg as needed - maybe taking every other day pending on the swelling. She is following with the wound and vascular clinic for her venous ulcers. She has TROY. She is not very active due to leg and hip pain. Denies c/o CP, orthopnea, PND, dizziness/LH, palpitations, syncope. Patient Active Problem List Diagnosis Abdominal pannus Adrenal mass 1 cm to 4 cm in diameter Albuminuria RAGHU positive Anxiety and depression Arthritis [...] (BMI) of 50.0 to 59.9 in adult Non-seasonal allergic rhinitis Obstructive sleep apnea Other chronic pain PAD (peripheral artery disease) Pneumonia Encounter for screening mammogram for malignant neoplasm of breast Radiculopathy, lumbar region Current smoker Type 2 [...] gland Venous ulcer of right leg (CMS/HCC) Chronic diastolic heart failure (CMS/HCC) Antibiotic-induced yeast infection Cellulitis of left lower extremity Cigarette nicotine dependence without complication Fever 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 (CMS/HCC) intermediate current use of inhaled steroid Vitamin D deficiency, unspecified Vitamin deficiency Past Medical History: Diagnosis Date COPD (chronic obstructive pulmonary disease) (CMS/HCC) Diabetes mellitus (CMS/HCC) Hyperlipidemia Hypertension Sleep apnea Family History Problem Relation Name Age of Onset Heart attack Paternal Grandmother Social History Tobacco Use Smoking status: Every Day Current packs/day: 0.50 Types: Cigarettes Smokeless tobacco: Never Substance Use Topics Alcohol use: Not Currently Drug use: Never No Known Allergies OBJECTIVE Visit Vitals BP 124/64 (BP Location: Left arm, Patient Position: Sitting) Pulse 83 Ht 1.702 m (5' 7 ) Wt (!) 171 kg (376 lb) SpO2 93% BMI 58.89 kg/m?? Smoking Status Every Day BSA 2.84 m?? Medications: Current Outpatient Medications: amitriptyline (Elavil) 50 mg [...] , Rfl: ergocalciferol (Vitamin D-2) 1.25 MG (90841 Units) capsule, Take 1.25 mg by mouth., [...] and at bedtime., Disp: , Rfl: HYDROcodone-acetaminophen ([place]) 5-325 mg tablet, TAKE 1 TABLET BY MOUTH THREE TIMES A DAY NEEDED FOR PAIN MUST LAST 30 DAYS, Disp: , Rfl: insulin aspart (NovoLOG) 100 unit/mL (3 mL) injection pen, Novolog Flexpen U-100 Insulin aspart 100unit/mL (3 mL) subcutaneous, Disp: , Rfl: insulin glargine (Lantus Solostar U-100 Insulin) 100 unit/mL (3 mL) injection pen, INJECT 48 UNITS SUBCUTANEOUSLY TWICE DAILY, Disp: , Rfl: lisinopril 20 mg tablet, Take 1 tablet by mouth in the morning., Disp: , Rfl: Mounjaro 10 mg/0.5 mL pen injector, INJECT 10MG SUBCUTANEOUSLY ONCE A WEEK, Disp: , Rfl: omeprazole (PriLOSEC) [address] capsule, Take by mouth in the morning., Disp: , Rfl: potassium chloride ER (Micro-K) 10 mEq ER capsule, Take 1 tablet by mouth in the morning., Disp: , Rfl: pregabalin (Lyrica) 300 mg capsule, Take 1 capsule by mouth in the morning and at bedtime., Disp: ,Rfl: roflumilast (Daliresp) 250 mcg tablet, TAKE 1 TABLET BY MOUTH DAILY FOR 28 DAYS, Disp: , Rfl: simvastatin (Zocor) 10 mg tablet, Take 1 tablet by mouth in the morning., Disp: , Rfl: varenicline tartrate (Chantix) 1 mg tablet, Take 1 mg by mouth two times daily., Disp: , Rfl: Physical Exam Vitals reviewed. Constitutional: Appearance: Normal appearance. She is obese. HENT: Head: Normocephalic and atraumatic. Right Ear: External ear normal. Left Ear: External ear normal. Eyes: Extraocular Movements: Extraocular movements intact. Conjunctiva/sclera: Conjunctivae normal. Pupils: Pupils are equal, round, and reactive to light. Neck: Vascular: No carotid bruit. Comments: Large neck girth Cardiovascular: Rate and Rhythm: Normal rate and regular rhythm. Pulses: Normal pulses. Heart sounds: Normal heart sounds. Pulmonary: Effort: Pulmonary effort is normal. Breath sounds: Normal breath sounds. Abdominal: General: Bowel sounds are normal. Palpations: Abdomen is soft. Musculoskeletal: Cervical back: Neck supple. Right lower leg: No edema. Left lower leg: No edema. Skin: General: Skin is warm and dry. Neurological: General: No focal deficit present. Mental Status: She is alert and oriented to person, place, and time. Psychiatric: Mood and Affect: Mood normal. Behavior: Behavior normal. Thought Content: Thought content normal. Judgment: Judgment normal. Labs: No results found for: EXTCMP , BMPR1A , CBCDIF , BNP , LASAP , RED No visits with results within 6 Month(s) from this visit. Latest known visit with results is: [facility] Encounter on 11/26/2018 Component Date Value Glucose POC 11/26/2018 156 (H) No results found for: CHOL , TRIG , HDL , LDLDIRECT 12/05/2024 Hgb 14.6, plt 107 Cr 0.77, BUN 16, K 3.7, Na 142, eGFR >60, AST 12, ALT 14 10/08/2024 Cr 0.89, BUN 25, K 4.3, Na 4.3, Na 144, eGFR >60 Chol 118, trig 127, HDL 35, LDL 57 04/04/2024 White blood count 14, hemoglobin 16.7, hematocrit 52.4, platelets 135 Sodium 139, potassium 4.2, BUN 15, creatinine 0.74, GFR above 60, glucose 218, calcium 9.3 Total bilirubin 0.4, AST 19, ALT 22, alk phos 77, total protein 7, albumin 2.9 11/12/2023 Cholesterol 146, LDL 69, HDL 51, triglyceride 127 Testing/Procedures: ECG 09/10/2023: Sinus rhythm, abnormal left axis deviation, low QRS voltage in chest leads. ECG 08/31/2023: Sinus tachycardia, nonspecific T wave abnormality, low QRS voltage in chest leads. Echocardiogram 08/31/2023: CONCLUSION: 1. Global left ventricular systolic function is difficult to assess but appears preserved 2. Severely increased left ventricular wall thickness 3. The right ventricle is poorly seen; it appears normal in size and systolic function 4. Valvular structures are poorly seen; no obvious valvular abnormalities 5. Anterior free space; trivial effusion versus fat pad 6. Poor quality study due to patient's body habitus; consider contrast study for better delineation of endocardial borders Echocardiogram 01/24/2023: CONCLUSION: 1. Technically difficult study with poor sound transmission. 2. Moderate concentric left ventricular hypertrophy with normal systolic function. LVEF is 55 to 60%. 3. Normal right ventricular size and systolic function. 4. No significant valvular abnormalities. 5. No pericardial effusion. CTA chest 08/31/2023: 1. Negative for pulmonary artery thrombus or embolus although somewhat limited enhancement of smaller distal vessels. Dilated pulmonary outflow tract unchanged. 2. There is a mild patchy groundglass density left lung likely inflammatory, correlate for pneumonitis. 3. No significant mediastinal adenopathy. Previously noted lymph nodes have decreased in size. From OSH: 12/12/2016 exercise nuclear stress test: Negative for ischemia. Normal LV EF. 12/12/2016 echocardiogram: LVEF > 55%, no significant valvular disease. ASSESSMENT/PLAN: Diagnoses and all orders for this visit: Chronic diastolic heart failure (CMS/HCC) - Transthoracic echo (TTE) complete; Future Bilateral lower extremity edema Primary hypertension Mixed hyperlipidemia Venous insufficiency Class 3 severe obesity due to excess calories with serious comorbidity and body mass index (BMI) of50.0 to 59.9 in adult Type 2 diabetes mellitus with complication, with long-term current use of insulin (CMS/HCC) Obstructive sleep apnea LVH (left ventricular hypertrophy) Chronic diastolic heart failure -NYHA III -She is up about 20# since last recorded weight in office 1 year ago. She notes weight gain has been gradual and she has recently been on steroids for COPD exacerbation. She currently appears compensated on exam and denies orthopnea/PND. She notes her LE edema is stable. -GDMT: continue farxiga and lasix 40mg daily and continue PRN lasix 20mg for worsened swelling. -Follow-up ECHO ordered. Left ventricular hypertrophy -Noted to be severe on TTE from 08/2023, most likely due to hypertension Legs edema with venous ulcer on the right leg, due to venous insufficiency, she follows with vein specialist Essential hypertension -Controlled -Continue lisinopril, hydralazine, furosemide, and Farxiga Hyperlipidemia -on simvastatin, well-controlled per 10/2024 labs Type 2 insulin-dependent diabetes mellitus Obesity, BMI 58.9 kg/m?? -Discussed importance of weight loss Sleep apnea, she is not using CPAP because of mask issues. She will be seeing a new network systems administrator and I advised she discuss mask options with them. Tobacco abuse, half to 1 pack/day for many years. She had increased to 1 ppd, she started on Chantix 1 month ago, she is back to 1/2 ppm. Encouraged continued efforts towards smoking cessation. Offered nicotine patches but she states her insurance dose not cover. COPD On Breztri If ECHO shows no changes, Follow up in about 6 months (around 07/09/2025). SAYDA Mann Cardiovascular Medicine ADDENDUM: #Cardiac risk stratification -While her recent ECHO showed preserved LVEF, no significant valve abnormality, she has METS <4 and risk factors for CAD including smoking, diabetes, HLD, HTN. -If she is proceeding with general anesthesia for surgery, will need to obtain a stress test for ischemic evaluation to help guide cardiac risk stratification. Stress test will need to be lexiscan asshe is not very active and she has leg and hip pain. -If she is proceeding with moderate sedation for surgery, she may proceed with moderate risk for cardiovascular complication. Karma Chatterjee APRN-SA[facility]DA [facility] Cardiovascular Medicine documented in this encounter Plan of Treatment Scheduled Orders Name Type Priority Associated Diagnoses Order Schedule Transthoracic echo (TTE) complete Echocardiography Routine Chronic diastolic heart failure (CMS/HCC) Expected: 01/06/2025 (Approximate), Expires: 01/06/2027 documented as of this encounter Visit Diagnoses Diagnosis Chronic diastolic heart failure (CMS/HCC)- Primary Chronic diastolic heart failure Bilateral lower extremity edema Primary hypertension Unspecified essential hypertension Mixed hyperlipidemia Venous insufficiency Unspecified venous (peripheral) insufficiency Class 3 severe obesity due to excess calories with serious comorbidity and body mass index (BMI) of 50.0 to 59.9 in adult Type 2 diabetes mellitus with complication, with long-term current use of insulin ([facility]) Obstructive sleep apnea Obstructive sleep apnea (adult) (pediatric) LVH (left ventricular hypertrophy) Cardiomegaly documented in this encounter Care Teams Promotional Model Relationship Specialty Start Date End Date Mckayla Blas MD [address] [place] [address] PCP - General Nurse Practitioner 11/13/23 documented as of this encounter
--- OUTSIDE RECORDS SUMMARY | 2025-02-18 13:33 | XMS_ITS | Encounter Summary ---
Author Organization [facility] Address [address] [place] [address] Care Team Providers Care Sack Cleaner Name Role Phone Ty Amin MD Primary Care Provider [phone] Mckayla Blas NP Unavailable [phone] Mckayla Blas NP Unavailable [phone] Encounter Details Date Type Department Care [...] often do you attend chur ch or congregational services? 1 to 4 times per year 07/10/2023 Do you belong to any clubs o r organizations such as jew groups, unions, fraternal [...] Recorded Patient Health Questionnaire-2 Score 1 01/17/2024 [facility] - [...] Office Visit [facility] [address] [place] [address] Mckayla Blas NP [address] [place] [address] 05/28/2025 10:30 AM EST Office Visit [facility] [address] [place] [address] Rain Souza MD [address] [place] [address] 02/01/2026 6:00 PM EDT Office Visit [facility] [address] [place] [address] Mckayla Blas, SILVANO [address] [place] [address] documented as of this encounter Procedures Procedure Name Priority Date/Time Associated Diagnosis Comments MR LUMBAR SPINE WO CON 05/12/2024 2:41 PM EST documented in this encounter Results * MR LUMBAR SPINE WO CON (05/12/2024 2:41 PM EST) Anatomical Region Laterality Modality Other 05/12/2024 2:41 PM EST Narrative 05/12/2024 2:43 [place] [address] Magnetic Resonance Report Signed Patient: MITZI MACIAS MR#: [id number] : 1970 Acct:[id number] Age/Sex: 53 / F ADM Date: 05/12/24 Loc: MRI Attending Dr: Celestina Chin NP Ordering Physician: Celestina Chin NP Date of Service: 05/12/24 Procedure(s): MR lumbar spine wo con Accession Number(s): [id number] cc: Mckayla Blas TUBE INSPECTOR; Celestina Chin NP [place] [id number] Patient Name: MITZI MACIAS MRN: [id number] date: 1970 Sex: F Assigned Patient Location: MRI Current Patient Location: CT Accession/Order Number: [id number] Exam Date: 05/12/2024 09:21 Report Date: 05/12/2024 [...] Signed By: 05/12/24 1443 DD/ 1441 TD/TT: Ap Operator: Procedure Note Radiology, Radiologist, MD - 05/12/2024 [place] [address] Magnetic Resonance Report Signed Patient: MITZI MACIAS R#: [id number] : 1970Acct:[id number] Age/Sex: 53 / FADM Date: 05/12/24 Loc: MRI Attending Dr: Celestina Chin NP Ordering Physician: Celestina Chin NP Date of Service: 05/12/24 Procedure(s): MR lumbar spine wo con Accession Number(s): [id number] cc: Mckayla Blas NP; Celestina Chin NP The [address] [address] Patient Name: MITZI MACIAS MRN: [facility]:[id number] date: 1970 Sex: F Assigned Patient Location: MRI Current Patient Location: CT Accession/Order Number: [id number] Exam Date: 05/12/2024 09:21 Report Date: 05/12/2024 [...] M.D. Signed By:05/12/24 1443 DD/ 1441 TD/TT: Ap Operator: us Generic External Data Provider [facility] Final Result documented in this encounter Visit Diagnoses Not on filedocumented in this encounter Additional Health Concerns Assessment Noted Time PHQ-9 Depression Total Score: 3 01/17/20 24 10:08 AM EDT documented as of this encounter Care Teams Sack Cleaner Relationship Specialty Start Date End Date Ty Amin MD [address] [place] [address] PCP - General Family Medicine 09/20/23 Mckayla Blas NP [address] [place] [address] PCP - [facility] 09/07/23 01/11/25 Mckayla Blas NP [address] [place] [address] Nurse Practitioner Family Medicine 09/20/23 documented as of this encounter
--- OUTSIDE RECORDS SUMMARY | 2025-02-18 13:33 | XMS_ITS | Encounter Summary ---
Author Organization [facility] Address [address] [place] [address] Care Team Providers Care Oral And Maxillofacial Surgeon Name Role Phone Ty Amin MD Primary Care Provider [phone] Mckayla Blas DRILLER PORTABLE Unavailable [phone] Mckayla Blas DRILLER PORTABLE Unavailable [phone] Encounter Details Date Type Department Care Team (Late st Contact Info) Description 01/07/2025 Abstract [facility] [address] [place] [address] Mckayla Blas NP [address] [place] [address] Social History Tobacco Use Types [...] you attend chur ch or episcopal services? More than 4 times [...] Recorded Patient Health Questionnaire-2 Score 1 01/17/2024 [facility] - Occupational Stress [...] any time in the past 12 m [facility], were you homeless or living in [...] Visit [facility] [address] [place] [address] Mckayla Blas NP [address] [place] [address] 05/28/2025 10:30 AM EST Office Visit [facility] [address] [place] [address] Rain Souza MD [address] [place] [address] 02/01/2026 6:00 PM EDT Office Visit [facility] [address] [place] [address] Mckayla Blas, SILVANO [address] [place] [address] documented as of this encounter Visit Diagnoses Not on filedocumented in this encounter Additional Health Concerns Assessment Noted Time PHQ-9 Depression Total Score: 3 01/17/20 10:08 AM EDT documented as of this encounter Care Teams Oral And Maxillofacial Surgeon Relationship Specialty Start Date End Date Ty Amin MD [address] [place] [address] PCP - General Family Medicine 09/20/23 Mckayla Blas NP [address] [place] [address] PCP - [facility] 09/07/23 01/11/25 Mckayla Blas NP [address] [place] [address] Nurse Practitioner Family Medicine 09/20/23 documented as of this encounter
--- OUTSIDE RECORDS SUMMARY | 2025-02-18 13:33 | XMS_ITS | Encounter Summary ---
[facility] Address [facility] [id number] [address] [place] [address] Care Team Providers Care Aerial Planting And Cultivation Manager Name Role Phone Mckayla Blas APRN-SALES TEAM RECRUITER Primary Care Provider Encounter Details Date Type Department Care Team (Late st Contact Info) Description 05/03/2020 [facility]phone [facility] [address] [place] [address] Tramaine Romero DO [address] [place] [address], [address] [id number] Social History Tobacco Use Types Packs/Day Years [...] on filedocumented in this encounter Care Teams Aerial Planting And Cultivation Manager Relationship Specialty Start Date End Date Mckayla Blas [place] [address] PCP - General Nurse Practitioner 09/25/18 documented as of this encounter
--- OUTSIDE RECORDS SUMMARY | 2025-02-18 13:33 | XMS_ITS | Clinical Summary ---
Author Organization [facility] Address [address] [place] [address] Care Team Providers Care Bottle Label Inspector Name Role Phone Mckayla Blas MD Primary [...] TWICE DAILY 02/07/20 22 Active HYDROcodone-ac etaminophen ([place]) 5-325 mg tablet TAKE 1 TABLET BY MOUTH THREE TIMES A DAY NEEDED FOR PAIN MUST LAST 30 DAYS 11/09/19 24 Active DULoxetine (Cymbalta) [address] capsule Take 1 tablet by mouth in the morning. Active ergocalciferol (Vitamin D-2) 1.25 MG (61636 Units) capsule Take 1.25 mg by mouth. 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 half-way current use of inhaled steroid 025 Vitamin [...] Assessment & Plan: Open wounds refer to [facility] Wound Care Vaginal yeast infection 08/17/2023 [...] am also going to have her see [facility] Cardiology as well Encounters Date Type Department Care Team Description 02/04/2025 Results Follow-Up Cardiology [address] [place] [address] Karma Chatterjee CNP Complete Echo (TTE) w/wo Imaging Agent, Strain, 3D, Bubble Study 01/30/2025 Orders Only [facility] [place] [address] [place] [address] ProviderDale MD 01/06/2025 11:20 AM EDT Office Visit [facility] [place] [address] [place] [address] Karma Chatterjee CNP Chronic diastolic heart failure [...] drink = 0.6 oz pur e alcohol) [place] Safety & Environment Answer Date Rec orded [...] Months Insurance [employer] MEDICARE Care Teams Bottle Label Inspector Relationship Specialty Start Date End Date Mckayla Blas MD [address] [place] [address] PCP - General Nurse Practitioner 11/13/23
--- OUTSIDE RECORDS SUMMARY | 2025-02-18 13:33 | XMS_ITS | Encounter Summary ---
Author Organization [facility] Address [address] [place] [address] Care Team Providers Care Bolt Sawyer Name Role Phone Ty Amin MD Primary Care Provider [phone] Ty Amin MD Primary Care Provider [phone] Mckayla Blas HEALTH WORKERS Unavailable [phone] Mckayla Blas HEALTH WORKERS Unavailable [phone] Encounter Details Date Type Department Care Team (Late st Contact Info) Description 09/12/2023 Orders Only [facility] [address] [place] [address] Social History Tobacco Use Types Packs/Day Years [...] How often do you attend chur or advent services? 1 to 4 times [...] Recorded Patient Health Questionnaire-2 Score 2 07/10/2023 [facility] - Occupational [...] Visit [facility] [address] [place] [address] Mckayla Blas, SILVANO [address] [place] [address] 05/28/2025 10:30 AM EST Office Visit [facility] [address] [place] [address] Rain Souza MD [address] [place] [address] 02/01/2026 6:00 PM EDT Office Visit [facility] [address] [place] [address] Mckayla Blas NP [address] [place] [address] documented as of this encounter Procedures Procedure Name Priority Date/Time Associated Diagnosis Comments XR CHEST 1 VIEW Routine 09/11/2023 4:52 PM EST documented in this encounter Results * XR chest 1 view (09/11/2023 4:52 PM EST) Anatomical Region Laterality Modality Chest Radiographic Kalani ging [facility] IMG XR PROCEDURES Final Result documented in this encounter Visit Diagnoses Not on filedocumented in this encounter Care Teams Bolt Sawyer Relationship Specialty Start Date End Date Ty Amin MD PCP - General Family Medicine 01/05/23 09/19/23 Ty Amin MD [address] [place] [address] PCP - General Family Medicine 09/20/23 Mckayla Blas NP [address] [place] [address] PCP - [facility] 09/07/23 01/11/25 Mckayla Blas NP [address] [place] [address] Nurse Practitioner Family Medicine 09/20/23 documented as of this encounter
--- OUTSIDE RECORDS SUMMARY | 2025-02-18 13:33 | XMS_ITS | Encounter Summary ---
Author Organization [facility] Address [address] [place] [address] Care Team Providers Care Sales Product Specialist Name Role Phone Ty Amin MD Primary Care Provider [phone] Mckayla Blas NP Unavailable [phone] Mckayla Blas NP Unavailable [phone] Encounter Details Date Type Department Care [...] Recorded Patient Health Questionnaire-2 Score 1 01/17/2024 [facility] - [...] Office Visit [facility] [address] [place] [address] Mckayla Blas NP [address] [place] [address] 05/28/2025 10:30 AM EST Office Visit [facility] [address] [place] [address] Rain Souza MD [address] [place] [address] 02/01/2026 6:00 PM EDT Office Visit [facility] [address] [place] [address] Mckayla Blas, SILVANO [address] [place] [address] documented as of this encounter Procedures Procedure Name Priority Date/Time Associated Diagnosis Comments SEGMENTAL BLOOD PRESSURE 04/24/2024 11:20 AM EDT documented in this encounter Results * SEGMENTAL BLOOD PRESSURE (04/24/2024 11:20 AM EDT) Anatomical Region Laterality Modality Radiographic Kalani ging 04/24/2024 11:2 0 AM EDT Narrative 04/24/2024 11:23 [place] [address] Vein Report Signed Patient: SINA MACIAS MR#: [id number] : 1970 Acct:[id number] Age/Sex: 53 / F ADM Date: 04/24/24 Loc: [facility] Attending Dr: Rafael Gongora Ordering Physician: Rafael Gongora Date of Service: 04/24/24 Procedure(s): VC SEGMENTAL PRESSURES Accession Number(s): [id number] cc: Mckayla Blas SPRAYER MACHINE; Rafael Gongora [place] [address] Patient Name: SINA MACIAS MRN: [id number] date: 1970 Sex: F Assigned Patient Location: Current Patient Location: Accession/Order Number: [id number] Exam Date: 04/24/2024 10:25 Report Date: 04/24/2024 11:20 At the request of: RAFAEL GONGORA Procedure: VC SEGMENTAL PRESSURES EXAM: VC SEGMENTAL PRESSURES HISTORY: R09.89 COMPARISON: None. FINDINGS: Segmental pressures presented as follows (right, left) in mmHg. Brachial: 169, 166 Upper thigh: Not obtained Lower thigh: 129, 119 Calf: 124, 106 DPA: 108, 105 DATA PROGRAMMER: 100, 91 1st Toe: 124, 142 ISABELLE: [...] Signed By: 04/24/24 1123 DD/ 1120 TD/TT: Oracle Bpm Consultant: Procedure Note Radiology, Radiologist, MD - 04/24/2024 [place] [address] Vein Report Signed Patient: SINA MACIAS LMR#: [id number] : 1970Acct:[id number] Age/Sex: 53 / FADM Date: 04/24/24 Loc: VC Attending Dr: Rafael Gongora Ordering Physician: Rafael Gongora Date of Service: 04/24/24 Procedure(s): VC SEGMENTAL PRESSURES Accession Number(s): [id number] cc: Mckayla Blas NP; Rafael Gongora [address] [place] [address] Patient Name: SINA MACIAS MRN: [id number] date: 1970 Sex: F Assigned Patient Location: Current Patient Location: VC Accession/Order Number: [id number] Exam Date: 04/24/2024 10:25 Report Date: 04/24/2024 11:20 At the request of: RAFAEL GONGORA Procedure: VC SEGMENTAL PRESSURES EXAM: VC SEGMENTAL PRESSURES HISTORY: R09.89 COMPARISON: None. FINDINGS: Segmental pressures presented as follows (right, left) in mmHg. Brachial: 169, 166 Upper thigh: Not obtained Lower thigh: 129, 119 Calf: 124, 106 DPA: 108, 105 DATA PROGRAMMER: 100, 91 1st Toe: 124, 142 ISABELLE: [...] M.D. Signed By:04/24/24 1123 DD/ 1120 TD/TT: Oracle Bpm Consultant: us Generic External Data Provider IMG XR PROCEDURES Final Result documented in this encounter Visit Diagnoses Not on filedocumented in this encounter Additional Health Concerns Assessment Noted Time PHQ-9 Depression Total Score: 3 01/17/20 24 10:08 AM EDT documented as of this encounter Care Teams Sales Product Specialist Relationship Specialty Start Date End Date Ty Amin MD [address] [place] [address] PCP - General Family Medicine 09/20/23 Mckayla Blas NP [address] [place] [address] PCP - [facility] 09/07/23 01/11/25 Mckayla Blas NP [address] [place] [address] Nurse Practitioner Family Medicine 09/20/23 documented as of this encounter
--- OUTSIDE RECORDS SUMMARY | 2025-02-18 13:33 | XMS_ITS | Encounter Summary ---
Author Organization [facility] Address [address] [place] [address] Care Team Providers Care Powderer Name Role Phone Ty Amin MD Primary Care Provider [phone] Mckayla Blas NP Unavailable [phone] Mckayla Blas NP Unavailable [phone] Encounter Details Date Type Department Care [...] often do you attend chur ch or jehovah's witness services? 1 to 4 times per year 07/10/2023 Do you belong to any clubs o r organizations such as anabaptism groups, unions, fraternal or athletic groups, or [...] Office Visit [facility] [address] [place] [address] Mckayla Blas NP [address] [place] [address] 05/28/2025 10:30 AM EST Office Visit [facility] [address] [place] [address] Rain Souza MD [address] [place] [address] 02/01/2026 6:00 PM EDT Office Visit [facility] [address] [place] [address] Mckayla Blas, SILVANO [address] [place] [address] documented as of this encounter Procedures Procedure Name Priority Date/Time Associated Diagnosis Comments CT ABDOMEN PELVIS W CON 05/12/2024 2:16 PM EST documented in this encounter Results * CT ABDOMEN PELVIS W CON (05/12/2024 2:16 PM EST) Anatomical Region Laterality Modality Other 05/12/2024 2:16 PM EST Narrative 05/12/2024 2:19 [place] [address] CT Scan Report Signed Patient: MITZI MACIAS MR#: [id number] : 1970 Acct:[id number] Age/Sex: 53 / F ADM Date: 05/12/24 Loc: CT Attending Dr: Gaviota MAYERS Ordering Physician: Gaviota Vega Date of Service: 05/12/24 Procedure(s): CT abdomen pelvis w con Accession Number(s): [id number] cc: Mckayla Blas NP [address] [address] Patient Name: MITZI MACIAS MRN: [id number] date: 1970 Sex: F Assigned Patient Location: CT Current Patient Location: Accession/Order Number: [id number] Exam Date: 05/12/2024 11:15 Report Date: 05/12/2024 [...] Signed By: 05/12/24 1419 DD/ 1416 TD/TT: Floor Care Specialist: Procedure Note Radiology, Radiologist, MD - 05/12/2024 [place] [address] CT Scan Report Signed Patient: MITZI MACIAS LMR#: [id number] : 1970Acct:[id number] Age/Sex: 53 / FADM Date: 05/12/24 Loc: CT Attending Dr: Gaviota MAYERS Ordering Physician: Gaviota Vega Date of Service: 05/12/24 Procedure(s): CT abdomen pelvis w con Accession Number(s): [id number] cc: Mckayla Blas NP The [place] [id number] Patient Name: MITZI MACIAS MRN: [facility]:[id number] date: 1970 Sex: F Assigned Patient Location: CT Current Patient Location: Accession/Order Number: [id number] Exam Date: 05/12/2024 11:15 Report Date: 05/12/2024 [...] M.D. Signed By:05/12/24 1419 DD/ 1416 TD/TT: Floor Care Specialist: us Generic External Data Provider [facility] Final Result documented in this encounter Visit Diagnoses Not on filedocumented in this encounter Additional Health Concerns Assessment Noted Time PHQ-9 Depression Total Score: 3 01/17/20 24 10:08 AM EDT documented as of this encounter Care Teams Powderer Relationship Specialty Start Date End Date Ty Amin MD [address] [place] [address] PCP - General Family Medicine 09/20/23 Mckayla Blas NP [address] [place] [address] PCP - [facility] 09/07/23 01/11/25 Mckayla Blas NP [address] [place] [address] Nurse Practitioner Family Medicine 09/20/23 documented as of this encounter
--- OUTSIDE RECORDS SUMMARY | 2025-02-18 13:33 | XMS_ITS | Encounter Summary ---
Author Organization [facility] tem Address [facility] [id number] [address] [place] [address] Care Team Providers Care Laborer Sawmill Name Role Phone JuanjoseMckayla carcamo Krystal PEREZN-SUPERINTENDENT DRILLING Primary Care Provider Encounter Details Date Type Department Care Team (Late st Contact Info) Description 05/31/2020 Orders Only [facility] [address] [place] [address] External, Scanning Provider Social History Tobacco Use [...] on filedocumented in this encounter Care Teams Laborer Sawmill Relationship Specialty Start Date End Date Mckayla Blas, TRIMMER BUFFING WHEEL-SUPERINTENDENT DRILLING [address] [place] [address] PCP - General Nurse Practitioner 09/25/18 documented as of this encounter
--- OUTSIDE RECORDS SUMMARY | 2025-02-18 13:33 | XMS_ITS | Encounter Summary ---
Author Organization [facility] Address [address] [place] [address] Care Team Providers Care Licensed Plumber Name Role Phone Mckayla Blas MD Primary Care Provider [phone] Encounter Details Date Type Department Care Team (Late st Contact Info) Description 02/04/2025 Results Follow-Up Cardiology [address] [place] [address] Karma Chatterjee CNP [address] [place] [address] Complete Echo (TTE) w/wo Imaging [...] on filedocumented in this encounter Care Teams Licensed Plumber Relationship Specialty Start Date End Date Mckayla Blas MD [address] [place] [address] PCP - General Nurse Practitioner 11/13/23 documented as of this encounter
--- OUTSIDE RECORDS SUMMARY | 2025-02-18 13:33 | XMS_ITS | Encounter Summary ---
Author Organization [facility] Address [address] [place] [address] Care Team Providers Care Floor Associate Name Role Phone Ty Amin MD Primary Care Provider [phone] Mckayla Blas NP Unavailable [phone] Reason for Visit * Reason Comments Med Refill Encounter Details Date Type Department Care Team (Late st Contact Info) Description 02/14/2025 [facility]ill [facility] [address] [place] [address] Rain Souza MD [address] [place] [address] Type 2 diabetes mellitus with hyperglycemia, with [...] How often do you attend chur or restorationist services? More than 4 times per year 08/26/2024 Do you belong to any clubs o r organizations such as nondenominational groups, unions, fraSouth Valley Cross[employer] or athletic groups, or school groups? No [...] Recorded Patient Health Questionnaire-2 Score 0 01/26/2025 [facility] - Occupational Stress [...] in a correction (including now)? No 07/10/2023 Housing Stability Vital Sign Answer Wilmer e Recorded In the last 12 months, was t here a time when you were not able to pay the mortgage or rent on time? No 08/26/2024 Number of Times Moved in the Last Year Not on fi le 08/26/2024 At any time in the past [address] [facility], were you homeless or living in a correction (including now)? No 08/26/2024 Comments Unknown Sex [...] [facility] [address] [place] [address] Mckayla Blas NP [address] [place] [address] 05/28/2025 10:30 AM EST Office Visit [facility] [place] [facility] [address] [place] [address] Rain Souza MD [address] [place] [address] 02/01/2026 6:00 PM EDT [facility] [address] [place] [address] Mckayla Blas NP [address] [place] [address] documented as of this encounter Visit Diagnoses Diagnosis Type 2 diabetes mellitus with hyperglycemia, with long-term current use of insulin (HCC) documented in this encounter Additional Health Concerns Assessment Noted Time PHQ-9 Depression Total Score: 3 01/17/20 10:08 AM EDT documented as of this encounter Care Teams Floor Associate Relationship Specialty Start Date End Date Ty Amin MD [address] [place] [address] PCP - General Family Medicine 09/20/23 Mckayla Blas NP [address] [place] [address] Nurse Practitioner Family Medicine 09/20/23 documented as of this encounter
--- OUTSIDE RECORDS SUMMARY | 2025-02-18 13:33 | XMS_ITS | Encounter Summary ---
Author Organization [facility] Address [address] [place] [address] Care Team Providers Care Dairy Grazer Name Role Phone Ty Amin MD Primary Care Provider [phone] Mckayla Blas NP Unavailable [phone] Mcakyla Blas NP Unavailable [phone] Encounter Details Date Type Department Care Team (Late st Contact Info) Description 05/12/2024 Orders Only [facility] [address] [address] Angela Cochran NP [address] [place] [address] Social History Tobacco Use Types [...] often do you attend chur ch or faith services? 1 to 4 times per year 07/10/2023 Do you belong to any clubs o r organizations such as jewish groups, unions, fraternal or athletic groups, or [...] Recorded Patient Health Questionnaire-2 Score 1 01/17/2024 [facility] - Occupational Stress Questionnaire Answer [...] Office Visit [facility] [address] [place] [address] Mckayla Blas NP [address] [place] [address] 05/28/2025 10:30 AM EST Office Visit [facility] [address] [place] [address] Rain Souza MD [address] [place] [address] 02/01/2026 6:00 PM EDT Office Visit [facility] [address] [place] [address] Mckayla Blas NP [address] [place] [address] documented as of this encounter Procedures Procedure [...] documented as of this encounter Care Teams Dairy Grazer Relationship Specialty Start Date End Date Ty Amin MD [address] [place] [address] PCP - General Family Medicine 09/20/23 Mckayla Blas NP [address] [place] [address] PCP - [facility] 09/07/23 01/11/25 Mckayla Blas NP [address] [place] [address] Nurse Practitioner Family Medicine 09/20/23 documented as of this encounter
--- OUTSIDE RECORDS SUMMARY | 2025-02-18 13:33 | XMS_ITS | Encounter Summary ---
Author Organization [employer] Address [facility] [id number] [address] [place] [address] Care Team Providers Care Road Hogger Operator Name Role Phone JuanjoseMckayla carcamo Krystal SMOKING PIPE MAKER-BOX SPRING MAKER Primary Care Provider Encounter Details Date Type Department Care Team (Late st Contact Info) Description 05/31/2020 Orders Only [facility] [address] [place] [address] External, Scanning Provider Social History Tobacco Use [...] ECG ORDERABLES Final Result Performing Organization Address [facility] Co de Phone Number MANUALLY [...] ECG ORDERABLES Final Result Performing Organization Address [facility] Co de Phone Number MANUALLY TRANSCRIBED RESULTS * Pulmonary function test (10/24/2018) us Scanning Provider External PFT ORDERABLES Final Result Performing Organization Address [facility] Co de Phone Number MANUALLY TRANSCRIBED RESULTS * Nuc stress Lexiscan/Exercise (12/12/2016) Anatomical Region Laterality Modality Chest N/A Nuclear Medicine us Scanning Provider External CV STRESS ORDERABLES Final Result documented in this encounter Visit Diagnoses Not on filedocumented in this encounter Care Teams Road Hogger Operator Relationship Specialty Start Date End Date Mckayla Blas, SMOKING PIPE MAKER-BOX SPRING MAKER [address] [place] [address] PCP - General Nurse Practitioner 09/25/18 documented as of this encounter
--- OUTSIDE RECORDS SUMMARY | 2025-02-18 13:33 | XMS_ITS | Encounter Summary ---
Author Organization [facility] Address [address] [place] [address] Care Team Providers Care Friction Saw Operator Name Role Phone Ty Amin MD Primary Care Provider [phone] Mckayla Blas SWEATBAND DECORATING MACHINE OPERATOR Unavailable [phone] Mckayla Blas SWEATBAND DECORATING MACHINE OPERATOR Unavailable [phone] Encounter Details Date Type Department Care Team (Late st Contact Info) Description 07/14/2024 Orders Only [facility] [address] [place] [address] Mckayla Blas SWEATBAND DECORATING MACHINE OPERATOR [address] [place] [address] Social History Tobacco Use Types Packs/Day Years [...] Recorded Patient Health Questionnaire-2 Score 1 01/17/2024 [facility] - Occupational [...] Office Visit [facility] [address] [place] [address] Mckayla Blas, SWEATBAND DECORATING MACHINE OPERATOR [address] [place] [address] 05/28/2025 10:30 AM EST Office Visit [facility] [address] [place] [address] Rain Souza MD [address] [place] [address] 02/01/2026 6:00 PM EDT Office Visit [facility] [address] [place] [address] Mckayla Blas NP [address] [place] [address] documented as of this encounter Procedures Procedure [...] documented as of this encounter Care Teams Friction Saw Operator Relationship Specialty Start Date End Date Ty Amin MD [address] [place] [address] PCP - General Family Medicine 09/20/23 Mckayla Blsa NP [address] [place] [address] PCP - [facility] 09/07/23 01/11/25 Mckayla Blas NP [address] [place] [address] Nurse Practitioner Family Medicine 09/20/23 documented as of this encounter
--- OUTSIDE RECORDS SUMMARY | 2025-02-18 13:33 | XMS_ITS | Encounter Summary ---
Author Organization [facility] Address [address] [place] [address] Care Team Providers Care Microsystems Engineer Name Role Phone Ty Amin MD Primary Care Provider [phone] Ty Amin MD Primary Care Provider [phone] Mckayla Blas BEATER LEAD Unavailable [phone] Mckayla Blas BEATER LEAD Unavailable [phone] Encounter Details Date Type Department Care Team (Late st Contact Info) Description 08/31/2023 Clinisync Result Encounter [facility] External Department Unsolicited Andra Alcala PA [address] [place] [address] Dr [address] [place], [place] [id number] Social History Tobacco Use Types Packs/Day Years [...] often do you attend chur ch or mosque services? 1 to 4 times per year [...] Recorded Patient Health Questionnaire-2 Score 2 07/10/2023 [facility] - Occupational Stress Questionnaire Answer [...] Office Visit [facility] [address] [place] [address] Mckayla Blas NP [address] [place] [address] 05/28/2025 10:30 AM EST Office Visit [facility] [address] [place] [address] Rain Souza MD [address] [place] [address] 02/01/2026 6:00 PM EDT Office Visit [facility] [address] [place] [address] Mckayla Blas NP [address] [place] [address] documented as of this encounter Procedures Procedure [...] LAB BLOOD ORDERAB LES Final Result [facility] * BLOOD CULTURE 1 (09/10/2023 2:05 PM EST) BLOOD CULTURE 1 Blood Culture 1 NG5D NO GROWTH AT 5 DAYS.^NO GROWTH AT 5 DAYS. TB 09/10/2023 2:05 PM EST 09/10/2023 2:28 PM EST Narrative [facility] - 09/16/2023 1:07 PM EDT Generic External Data Provider LAB BLOOD ORDERAB LES Final Result [facility] * ECG 12-LEAD (08/31/2023 6:08 PM EST) Anatomical Region Laterality Modality Other 08/31/2023 6:08 PM EST Narrative 09/02/2023 7:32 AM EST [place] [id number] Electrocardiograph Report Signed Patient: MITZI MACIAS MR#: [id number] : 1970 Acct:[id number] Age/Sex: 53 / F ADM Date: 08/31/23 Loc: MS 214-[address]: Jacqueline Becerra D.O. 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 Signed By: 09/02/23 0732 DD/ 1808 TD/TT: Psychology Lecturer: Procedure Note Radiology, Radiologist, - 09/02/2023 The [place] [id number] Electrocardiograph Report Signed Patient: MITZI MACIAS R#: [id number] : 1970Acct:[id number] Age/Sex: 53 / FADM Date: 08/31/23 Loc: MS 214-[address]: Jacqueline Becerra D.O. 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 Signed By:09/02/23 0732 DD/ 1808 TD/TT: Psychology Lecturer: Andra MAYERS [facility] Final Result documented in this encounter Visit Diagnoses Not on filedocumented in this encounter Care Teams Microsystems Engineer Relationship Specialty Start Date End Date Ty Amin MD PCP - General Family Medicine 01/05/23 09/19/23 Ty Amin MD [address] [place] [address] PCP - General Family Medicine 09/20/23 Mckayla Blas NP [address] [place] [address] PCP - [facility] 09/07/23 01/11/25 Mckayla Blas NP [address] [place] [address] Nurse Practitioner Family Medicine 09/20/23 documented as of this encounter
--- OUTSIDE RECORDS SUMMARY | 2025-02-18 13:33 | XMS_ITS | Clinical Summary ---
Author Organization [employer] tem Address [id number] [address] [place] [address] Care Team Providers Care Guest Services Representative Name Role Phone Wan Mckayla Krystal PEREZN-PAINTER SET Primary Care Provider Allergies No known active [...] Medical Devices Not on file Insurance MEDICAID MD [employer] MEDICARE Care Teams Guest Services Representative Relationship Specialty Start Date End Date Mckayla Blas APRN-PAINTER SET [address] [place] [address] PCP - General Nurse Practitioner 09/25/18
--- OUTSIDE RECORDS SUMMARY | 2025-02-18 13:33 | XMS_ITS | Encounter Summary ---
Author Organization [facility] Address [address] [place] [address] Care Team Providers Care Customer Complaint Clerk Name Role Phone Ty Amin MD Primary Care Provider [phone] Mckayla Blas MEDICAL RECORD ADMINISTRATOR Unavailable [phone] Mckayla Blas NP Unavailable [phone] Encounter Details Date Type Department Care Team (Late st Contact Info) Description 12/17/2023 Orders Only [facility] [address] [place] [address] Mckayla Blas NP [address] [place] [address] Social History Tobacco Use Types Packs/Day Years [...] often do you attend chur ch or restorationism services? 1 to 4 times [...] Recorded Patient Health Questionnaire-2 Score 0 11/01/2023 [facility] Occup[facility] ional Health - Occupational [...] Office Visit [facility] [address] [place] [address] Mckayla Blas NP [address] [place] [address] 05/28/2025 10:30 AM EST Office Visit [facility] [address] [place] [id number] Rain Souza MD [address] [place] [id number] 02/01/2026 6:00 PM EDT Office Visit [facility] [address] [place] [address] Mckayla Blas NP [address] [place] [address] documented as of this encounter Procedures Procedure [...] on filedocumented in this encounter Care Teams Customer Complaint Clerk Relationship Specialty Start Date End Date Ty Amin MD [address] [place] [address] PCP - General Family Medicine 09/20/23 Mckayla Blas NP [address] [place] [address] PCP - [facility] 09/07/23 01/11/25 Mckayla Blas NP [address] [place] [address] Nurse Practitioner Family Medicine 09/20/23 documented as of this encounter
--- OUTSIDE RECORDS SUMMARY | 2025-02-18 13:33 | XMS_ITS | Encounter Summary ---
Author Organization [facility] Address [address] [place] [address] Care Team Providers Care Film Developing 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 Name Role Phone Ty Amin MD Primary Care Provider [phone] Mckayla Blas NP Unavailable [phone] Encounter Details Date Type Department Care Team (Late st Contact Info) Description 02/18/2025 Abstract [facility] [address] [place] [address] Mckayla Blas, PRODUCE MANAGER [address] [place] [address] Social History Tobacco Use Types Packs/Day Years [...] often do you attend [facility] sault or mosque services? More than 4 times per year 08/26/2024 Do you belong to any clubs o r organizations such as uatsdin groups, unions, fraternal or athletic groups, or [...] Recorded Patient Health Questionnaire-2 Score 0 01/26/2025 [facility] of Occupat ional Health - Occupational [...] any time in the past 12 m [facility], were you homeless or living [...] Office Visit [facility] [address] [place] [address] Mckayla Blas NP [address] [place] [address] 05/28/2025 10:30 AM EST Office Visit [facility] [address] [place] [address] Rain Souza MD [address] [place] [address] 02/01/2026 6:00 PM EDT Office Visit [facility] [address] [place] [address] Mckayla Blas NP [address] [place] [address] documented as of this encounter Visit Diagnoses Not on filedocumented in this encounter Additional Health Concerns Assessment Noted Time PHQ-9 Depression Total Score: 3 01/17/20 24 10:08 AM EDT documented as of this encounter Care Teams Film Developing 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 Relationship Specialty Start Date End Date Ty Amin MD [address] [place] [address] PCP - General Family Medicine 09/20/23 Mckayla Blas NP [address] [place] [address] Nurse Practitioner Family Medicine 09/20/23 documented as of this encounter
--- OUTSIDE RECORDS SUMMARY | 2025-02-18 13:33 | XMS_ITS | Clinical Summary ---
Author Organization [facility] Address [address] [place] [address] Care Team Providers Care Value Engineer Name Role Phone Ty mAin MD Primary Care Provider [phone] Mckayla Blas NP Unavailable [phone] Allergies No known active allergies Medications [...] if needed for wheezing Active HYDROcodone-acet aminophen ([place]) 5-325 MG tablet 1 tablet as needed [...] 025 Active ergocalciferol (Vitamin D2) 1.25 MG (57643 UT) capsuleIndicatio ns:Vitamin D deficiency, unspecified Take [...] complication, with long-term current use of insulin ([facility]) Chew 1 tablet (81 mg) Daily 90 tablet 3 025 2024 Discontinued(R eorder) cetirizine (ZyrTEC) 10 MG tabletIndication s:Non-seasonal allergic rhinitis, unspecified trigger Take 1 tablet (10 mg) by mouth Daily 90 tablet 1 2024 Discontinued(R eorder) dapagliflozin (Farxiga) 10 MGIndications:Ty pe 2 diabetes mellitus with unspecified complications ([facility]) Take 1 tablet (10 mg) by mouth [...] wrapped, 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 as possible 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 025 Non-pressure [...] see if helps Encounter for subsequent [facility] wellness visit (AWV) in Medicare patient 01/17/2024 [...] can try ubrelvy #3 samples given: Lot [id number], exp 03/2025 Mixed incontinence 11/14/2023 Arthritis 11/14/2023 [...] is necessary they take over prescribing Pancreatitis ([facility]) 09/17/2023 COPD exacerbation 09/17/2023 Assessment & Plan [...] 11:17 AM EDT): Open wounds refer to [facility] Wound [facility] Pulmonary hypertension 09/17/2023 Assessment & Plan (01/26/2025 7:52 AM EDT): Has seen [facility] Cardiology Assessment & Plan (12/09/2024 7:23 AM EDT): Has seen [facility] Cardiology Assessment & Plan (11/15/2023 3:49 PM EDT): Saw [facility] Cardiology See notes Going to see Pulmonary Assessment & Plan (09/27/2023 1:03 PM EDT): Needs to wear her PAP I am also going to have her see [facility] Cardiology as well PAD (peripheral artery [...] spiriva Will trial breztri: #2 samples given [id number], exp 03/03, rinse mouth after use Give [...] PM EDT): Current meds: albuterol, duoneb, Has molding line assistant 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 Assessment & Plan (08/27/2024 7:30 AM EST): Current meds: albuterol, duoneb, Has molding line assistant 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 Assessment & Plan (01/17/2024 [...] lost script I did [facility] [place], they will get another fill on this [...] Encounters Date Type Department Care Team Description 02/18/2025 Abstract [facility] [address] [place] [address] Mckayla Blas NP 02/14/2025 Refill [facility] [address] [place] [address] Rain Odonnell MD Type 2 diabetes mellitus with hyperglycemia, with long-term current use of insulin (HCC) 01/29/2025 9:40 AM EDT Office Visit [facility] [address] [place] [address] Rain Odonnell MD Encounter for dietary consultation (Primary Dx); Type 2 diabetes mellitus with hyperglycemia, with long-term current use of insulin ([facility]); Vitamin D deficiency; Primary hypertension ; Insulin long-term use ([facility]); Hyperlipemia, mixed ; Microalbuminuria; Class 3 severe obesity due to excess calories with serious comorbidity and body mass index (BMI) of 50.0 to 59.9 in adult ([facility]) 01/29/2025 Clinisync Result Encounter [facility] External Department Unsolicited Provider, Generic External Data 01/29/2025 Bamboo flowsheet [facility] [address] [place] [address] Rain Odonnell MD 01/26/2025 6:00 PM EDT Office Visit [facility] [address] [place] [address] Mckayla Blas NP Encounter for subsequent annual [...] Morbid (severe) obesity due to excess calories ([facility]) 01/26/2025 Bamboo flowsheet [facility] [address] [place] [address] Mckayla Blas NP 01/19/2025 Travel 01/16/2025 Refill [facility] [address] [place] [address] Amber Pinzon LPN Vitamin D deficiency, unspecified 01/07/2025 Abstract [facility] [address] [place] [address] Mckayla Blas NP 01/07/2025 Abstract [facility] [address] [place] [address] Mckayla Blas NP 12/18/2024 Refill [facility] [address] [place] [address] Mckayla Blas NP Hyperlipidemia, unspecified ; Tobacco user; Encounter for smoking cessation counseling 12/17/2024 Telephone [facility] [address] [place] [address] Mckayla Blas NP Error (VOID this visit) 12/09/2024 10:00 AM EDT Office Visit [facility] [address] [place] [address] Mckayla Blas NP Cellulitis of left lower extremity (Primary Dx); COPD exacerbation (HCC); Primary hypertension ; Pulmonary hypertension (HCC); Morbid (severe) obesity due to excess calories (CMS-HCC); Type 2 diabetes mellitus with complication, with long-term current use of insulin (HCC); Anxiety and depression ; Fever, unspecified fever cause 12/09/2024 Bamboo flowsheet [facility] [address] [facility] [place] [address] Mckayla Blas NP 12/08/2024 Travel 12/04/2024 Clinisync Result Encounter [facility] External Department Unsolicited Provider, Generic External Data from Last 3 Months Immunizations Immunization Administration Dates Next Due Influenza Whole 05/02/2013 Influenza, [id number] 04/16/2017,05/10/2016 Influenza, Unspecified 05/18/2023,04/16/2017,08/2015 Influenza, injectable, quadrivalent [...] How often do you attend chur or quaker services? More than 4 times per year [...] Recorded Patient Health Questionnaire-2 Score 0 01/26/2025 [facility] of Occupat ional Health - Occupational Stress [...] in a snf (including now)? No 07/10/2023 Housing Stability Vital Sign Answer Wilmer e Recorded In the last 12 months, was t here a time when you were not able to pay the mortgage or rent on time? No 08/26/2024 Number of Times Moved in the Last Year Not on fi le 08/26/2024 At any time in the past 12 m [facility], were you homeless or living in a snf (including now)? No 08/26/2024 Comments Unknown Sex [...] 04/29/2025 6:00 PM EDT Office Visit [facility] [address] [place] [address] Mckayla Blas NP [address] [place] [address] 05/28/2025 10:30 AM EST Office Visit [facility] [address] [place] [address] Rain Odonnell MD [address] [place] [address] 02/01/2026 6:00 PM EDT Office Visit [facility] [address] [place] [address] Mckayla Blas NP [address] [place] [address] Health Maintenance Due Date Last Done Comments [...] EDT Narrative 01/29/2025 6:40 PM EDT The [address] [address] Cardiology Report Signed Patient: MITZI MACIAS MR#: [id number] : 1970 Acct:[id number] Age/Sex: 54 / F ADM Date: 01/29/25 Loc: CARD Attending Dr: AMI ORO APRN Ordering Physician: AMI ORO APRN Date of Service: 01/29/25 Procedure(s): CA echo doppler complete Accession Number(s): [id number] cc: Mckayla Blas CERTIFIED MEDICAL BILLER; AMI ORO APRN Patient Name: MITZI MACIAS MR#: [id number] : 1970 Exam Date: 01/29/2025 Ordering Doctor: AMI ORO HOOKER LASTER ECHOCARDIOGRAM REPORT PROCEDURE: CA ECHO DOPPLER COMPLETE [...] AGUILAR Signed By: 01/29/251839 DD/ 39 TD/TT: Ip Architect: Procedure Note Radiology, Radiologist, MD - 01/29/2025 [place] [address] Cardiology Report Signed Patient: MITZI MACIAS LMR#: [id number] : 1970Acct:[id number] Age/Sex: 54 / FADM Date: 01/29/25 Loc: CARD Attending Dr: AMI ORO APRN Ordering Physician: AMI ORO APRN Date of Service: 01/29/25 Procedure(s): CA echo doppler complete Accession Number(s): [id number] cc: Mckayla Blas CERTIFIED MEDICAL BILLER; AMI ORO APRN Patient Name: MITZI MACIAS MR#: [id number] : 1970 Exam Date: 01/29/2025 Ordering Doctor: [...] BHARAT AGUILAR Signed By:01/29/251839 DD/ 39 TD/TT: Ip Architect: Generic External Data Provider [facility] Final [...] PM EDT 12/04/2024 6:18 PM EDT [facility]ative [facility] 12/10/2024 2:31 PM EDT LEFT AC us Generic External Data Provider LAB BLOOD ORDERAB LES Final Result Performing Organization Address [facility]/ZIP Co de Phone Number [facility] * BLOOD CULTURE 1 (12/04/2024 4:44 PM EDT) BLOOD CULTURE 1 Blood Culture 1 NG5D NO GROWTH AT 5 DAYS.^NO GROWTH AT 5 DAYS. TB 12/04/2024 4:44 PM EDT 12/04/2024 5:17 PM EDT Narrative [facility] - 12/10/2024 2:32 PM EDT us Generic External Data Provider LAB BLOOD ORDERAB LES Final Result Performing Organization Address [facility] Co de Phone Number [facility] * Diabetic Retinopathy Screening - OU - Both Eyes (07/14/2024 3:09 PM EST) Anatomical Region Laterality Modality Head Other Mckayla Blas NP OPHTH PHOTOGRAPHY Final Result * MM TOMOSYNTHESIS SCREENING BI (12/14/2023 11:21 AM EDT) Anatomical Region Laterality Modality Other 12/14/2023 11:2 1 AM EDT Narrative 12/14/2023 11:22 [place] [address] Mammography Report Signed Patient: MITZI MACIAS MR#: [id number] : 1970 Acct:[id number] Age/Sex: 53 / F ADM Date: 12/13/23 Loc: MAMMO Attending Dr: Mckayla Blas NP Ordering Physician: Mckayla Blas NP Results: Date of Service: 12/13/23 Follow Up: Procedure(s): MM tomosynthesis screening BI Accession Number(s): [id number] cc: Mckayla Blas NP Patient Name: MITZI MACIAS MR#: [id number] : 1970 Exam Date: 12/13/2023 Ordering Doctor: [...] at age 75. LOCATION: [facility] BREAST COMPOSITION: The breasts are almost [...] M.D. on 12/14/2023 at 11:18 Approved by: Neol Ivan M.D. on 12/14/2023 at 11:21 Dictated By: Noel Ivan M.D. Signed By: 12/14/23 1122 DD/ 1121 TD/TT: Ip Architect: Procedure Note Radiology, Radiologist, MD - 12/14/2023 [place] [address] Mammography Report Signed Patient: MITZI MACIAS LMR#: [id number] : 1970Acct:[id number] Age/Sex: 53 / FADM Date: 12/13/23 Loc: MAMMO Attending Dr: Mckayla Blas NP Ordering Physician: Mckayla Blas NPResults: Date of Service: 12/13/23Follow Up: Procedure(s): MM tomosynthesis screening BI Accession Number(s): [id number] cc: Mckayla Blas NP Patient Name: MITZI MACIAS MR#: [id number] : 1970 Exam Date: 12/13/2023 Ordering Doctor: SAYDA Blas HOOKER LASTER RADIOLOGY REPORT PROCEDURE: MM TOMOSYNTHESIS SCREENING BI [...] at age 75. LOCATION: [facility] BREAST COMPOSITION: The breasts are almost [...] M.D. Signed By:12/14/23 1122 DD/ 1121 TD/TT: Ip Architect: Mckayla Blas NP [facility] Final Result from Last 3 Months or Most Recently Relevant to Health Maintenance Insurance MEDICARE [employer] Care Teams Value Engineer Relationship Specialty Start Date End Date Ty Amin MD [address] [place] [address] PCP - General Family Medicine 09/20/23 Mckayla Blas NP [address] [place] [address] Nurse Practitioner Family Medicine 09/20/23
--- OUTSIDE RECORDS SUMMARY | 2025-02-18 13:33 | XMS_ITS | Encounter Summary ---
Author Organization [email or web address] s tem Address [id number] [address] [place] [address] Care Team Providers Care Molding Cutter Name Role Phone JuanjoseMckayla carcamo Krystal OLIVE BRINE TESTER-EMR TRAINER Primary Care Provider Encounter Details Date Type Department Care Team (Late st Contact Info) Description 06/11/2020 Orders Only [facility] [address] [place] [address] External, Scanning Provider Social History Tobacco Use [...] on filedocumented in this encounter Care Teams Molding Cutter Relationship Specialty Start Date End Date Mckayla Blas, OLIVE BRINE TESTER-EMR TRAINER [address] [place] [place] [address] PCP - General Nurse Practitioner 09/25/18 documented as of this encounter
--- OUTSIDE RECORDS SUMMARY | 2025-02-18 13:33 | XMS_ITS | Encounter Summary ---
Author Organization [facility] Address [address] [place] [address] Care Team Providers Care Gospel Singer Name Role Phone Ty Amin MD Primary Care Provider [phone] Mckayla Blas MAP COMPILER Unavailable [phone] Mckayla Blas MAP COMPILER Unavailable [phone] Encounter Details Date Type Department Care Team (Late st Contact Info) Description 01/07/2025 Abstract [facility] [address] [place] [address] Mckayla Blas NP [address] [place] [address] Social History Tobacco Use Types [...] you attend chur ch or scientologist services? More than 4 times per year [...] Visit [facility] [address] [place] [address] Mckayla Blas NP [address] [place] [address] 05/28/2025 10:30 AM EST Office Visit [facility] [address] [place] [phone] Rain Souza MD [address] [place] [address] 02/01/2026 6:00 PM EDT Office Visit [facility] [address] [place] [address] Mckayla Blas, SILVANO [address] [place] [address] documented as of this encounter Visit Diagnoses Not on filedocumented in this encounter Additional Health Concerns Assessment Noted Time PHQ-9 Depression Total Score: 3 01/17/20 10:08 AM EDT documented as of this encounter Care Teams Gospel Singer Relationship Specialty Start Date End Date Ty Amin MD [address] [place] [address] PCP - General Family Medicine 09/20/23 Mckayla Blas NP [address] [place] [address] PCP - [facility] 09/07/23 01/11/25 Mckayla Blas NP [address] [place] [address] Nurse Practitioner Family Medicine 09/20/23 documented as of this encounter
--- OUTSIDE RECORDS SUMMARY | 2025-02-18 13:33 | XMS_ITS | Encounter Summary ---
Author Organization [facility] Address [address] [place] [address] Care Team Providers Care Catalogue Maker Name Role Phone Ty Amin MD Primary Care Provider [phone] Mckayla Blas ELECTRONIC COILS SUPERVISOR Unavailable [phone] Mckayla Blas ELECTRONIC COILS SUPERVISOR Unavailable [phone] Encounter Details Date Type Department Care Team (Late st Contact Info) Description 04/14/2024 Orders Only [facility] [address] [place] [address] Mckayla Blas ELECTRONIC COILS SUPERVISOR [address] [place] [address] Social History Tobacco Use Types Packs/Day Years [...] Office Visit [facility] [address] [place] [address] Mckayla Blas, ELECTRONIC COILS SUPERVISOR [address] [place] [address] 05/28/2025 10:30 AM EST Office Visit [facility] [address] [place] [address] Rain Souza MD [address] [place] [address] 02/01/2026 6:00 PM EDT Office Visit [facility] [address] [place] [address] Mckayla Blas NP [address] [place] [address] documented as of this encounter Procedures Procedure [...] Ankle Right Radiogr aphic Imaging Mckayla Blas ELECTRONIC COILS SUPERVISOR IMG XR PROCEDURES Final Result documented in this encounter Visit Diagnoses Not on filedocumented in this encounter Additional Health Concerns Assessment Noted Time PHQ-9 Depression Total Score: 3 01/17/20 10:08 AM EDT documented as of this encounter Care Teams Catalogue Maker Relationship Specialty Start Date End Date Ty Amin MD [address] [place] [phone] PCP - General Family Medicine 09/20/23 Mckayla Blas NP [address] [place] [address] PCP - [facility] 09/07/23 01/11/25 Mckayla Blas NP [address] [place] [address] Nurse Practitioner Family Medicine 09/20/23 documented as of this encounter
--- OUTSIDE RECORDS SUMMARY | 2025-02-18 13:34 | XMS_ITS | Encounter Summary ---
Author Organization [facility] Address [address] [place] [address] Care Team Providers Care Dry Cell Assembly Supervisor Name Role Phone Ty Amin MD Primary Care Provider [phone] Ty Aimn MD Primary Care Provider [phone] Mckayla Blas STEAM TUNNEL FEEDER Unavailable [phone] Mckayla Blas STEAM TUNNEL FEEDER Unavailable [phone] Encounter Details Date Type Department Care Team (Late st Contact Info) Description 07/08/2023 Abstract [facility] [address] [place] [phone] Mckayla Blas NP [address] [place] [address] Social History Tobacco Use Types Packs/Day Years [...] often do you attend chur ch or mu-ism services? 1 to 4 times per year [...] Score 2 07/10/2023 [facility] [...] place to sleep or slept in a nursing home (including now)? No 07/10/2023 Comments Unknown [...] 04/29/2025 6:00 PM EDT Office Visit [facility] [address] [place] [address] Mckayla Blas, SILVANO [address] [place] [address] 05/28/2025 10:30 AM EST Office Visit [facility] [address] [place] [address] Rain Souza MD [address] [place] [address] 02/01/2026 6:00 PM EDT Office Visit [facility] [address] [place] [address] Mckayla Blas NP [address] [place] [address] documented as of this encounter Visit Diagnoses Not on filedocumented in this encounter Care Teams Dry Cell Assembly Supervisor Relationship Specialty Start Date End Date Ty Amin MD PCP - General Family Medicine 01/05/23 09/19/23 Ty Amin MD [address] [place] [address] PCP - General Family Medicine 09/20/23 Mckayla Blas NP [address] [place] [address] PCP - [facility] 09/07/23 01/11/25 Mckayla Blas NP [address] [place] [address] Nurse Practitioner Family Medicine 09/20/23 documented as of this encounter
--- OUTSIDE RECORDS SUMMARY | 2025-02-18 13:34 | XMS_ITS | Encounter Summary ---
Author Organization [facility] Address [address] [place] [address] Care Team Providers Care Inclinometer Tester Name Role Phone Ty Amin MD Primary Care Provider [phone] Mckayla Blas ELECTRONIC PARTS DESIGNER Unavailable [phone] Mckayla Blas ELECTRONIC PARTS DESIGNER Unavailable [phone] Reason for Visit * Reason Comments Med Refill Encounter Details Date Type Department Care Team (Late st Contact Info) Description 11/27/2023 Refill [facility] [address] [place] [address] Mckayla Blas NP [address] [place] [address] Chronic obstructive pulmonary disease, unspecified (HCC) Social [...] How often do you attend chur or yazidi services? 1 to 4 times per year [...] Recorded Patient Health Questionnaire-2 Score 0 11/01/2023 [facility] - [...] Office Visit [facility] [address] [place] [address] Mckayla Blas NP [address] [place] [address] 05/28/2025 10:30 AM EST Office Visit [facility] [address] [place] [address] Rain Souza MD [address] [place] [address] 02/01/2026 6:00 PM EDT Office Visit [facility] [address] [place] [address] Mckayla Blas NP [address] [place] [address] documented as of this encounter Visit Diagnoses Diagnosis Chronic obstructive pulmonary disease, unspecified (HCC) documented in this encounter Care Teams Inclinometer Tester Relationship Specialty Start Date End Date Ty Amin MD [address] [place] [address] PCP - General Family Medicine 09/20/23 Mckayla Blas NP [address] [place] [address] PCP - [facility] 09/07/23 01/11/25 Mckayla Blas NP [address] [place] [address] Nurse Practitioner Family Medicine 09/20/23 documented as of this encounter
--- OUTSIDE RECORDS SUMMARY | 2025-02-18 13:34 | XMS_ITS | Encounter Summary ---
Author Organization [facility] Address [address] [place] [address] Care Team Providers Care Towel Folder Name Role Phone Ty Amin MD Primary Care Provider [phone] Mckayla Blas MEDICINE AND HEALTH SERVICE MANAGER Unavailable [phone] Mckayla Blas NP Unavailable [phone] Encounter Details Date Type Department Care Team (Late st Contact Info) Description 12/14/2023 Clinisync Result Encounter [facility] External Department Unsolicited Mckayla Blas NP [address] [place] [address] Social History Tobacco Use Types Packs/Day Years [...] any clubs o r organizations such as catholic groups, unions, fraternal [...] Recorded Patient Health Questionnaire-2 Score 0 11/01/2023 [facility] ional [facility] - Occupational Stress Questionnaire Answer [...] Visit [facility] [address] [place] [address] Mckayla Blas, SILVANO [address] [place] [address] 05/28/2025 10:30 AM EST Office Visit [facility] [address] [place] [address] Rain Souza MD [address] [place] [id number] 02/01/2026 6:00 PM EDT Office Visit [facility] [address] [place] [phone] Mckayla Blas NP [address] [place] [address] documented as of this encounter Procedures Procedure Name Priority Date/Time Associated Diagnosis Comments MM TOMOSYNTHESIS SCREENING BI 12/14/2023 11:21 AM EDT documented in this encounter Results * MM TOMOSYNTHESIS SCREENING BI (12/14/2023 11:21 AM EDT) Anatomical Region Laterality Modality Other 12/14/2023 11:2 1 AM EDT Narrative 12/14/2023 11:22 [place] [address] Mammography Report Signed Patient: SINA MACIAS MR#: [id number] : 1970 Acct:[id number] Age/Sex: 53 / F ADM Date: 12/13/23 Loc: MAMMO Attending Dr: Mckayla Blas NP Ordering Physician: Mckayla Blas NP Results: Date of Service: 12/13/23 Follow Up: Procedure(s): MM tomosynthesis screening BI Accession Number(s): [id number] cc: Mckayla Blas NP Patient Name: SINA MACIAS MR#: [id number] : 1970 Exam Date: 12/13/2023 Ordering Doctor: [...] at age 75. LOCATION: [facility] BREAST COMPOSITION: The breasts are almost entirely [...] Signed By: 12/14/23 1122 DD/ 1121 TD/TT: Fire Truck Driver: Procedure Note Radiology, Radiologist, MD - 12/14/2023 [place] [address] Mammography Report Signed Patient: SINA MACIAS LMR#: [id number] : 1970Acct:[id number] Age/Sex: 53 / FADM Date: 12/13/23 Loc: MAMMO Attending Dr: Mckayla Blas NP Ordering Physician: Mckayla Blas NPResults: Date of Service: 12/13/23Follow Up: Procedure(s): MM tomosynthesis screening BI Accession Number(s): [id number] cc: Mckayla Blas NP Patient Name: SINA MACIAS MR#: [id number] : 1970 Exam Date: 12/13/2023 Ordering Doctor: SAYDA Blas COUNTER INTELLIGENCE AGENT RADIOLOGY REPORT PROCEDURE: MM TOMOSYNTHESIS SCREENING BI [...] at age 75. LOCATION: [facility] BREAST COMPOSITION: The breasts are almost entirely [...] M.D. Signed By:12/14/23 1122 DD/ 1121 TD/TT: Fire Truck Driver: us Mckayla Blas NP [facility] Final Result documented in this encounter Visit Diagnoses Not on filedocumented in this encounter Care Teams Towel Folder Relationship Specialty Start Date End Date Ty Amin MD [address] [place] [address] PCP - General Family Medicine 09/20/23 Mckayla Blas NP [address] [place] [address] PCP - [facility] 09/07/23 01/11/25 Mckayla Blas NP [address] [place] [address] Nurse Practitioner Family Medicine 09/20/23 documented as of this encounter
--- OUTSIDE RECORDS SUMMARY | 2025-02-18 13:41 | XMS_ITS | CCD ---
Author Organization [facility] Care Team Providers Care Packer Name Role Phone James Benavidez Primary Care Provider JAMES BENAVIDEZ Primary Care Unavailable SHENDGE, VITHAL Admitting Unavailable SHENDGE, VITHAL Attending Unavailable AICHHOLZ, MCKAYLA Primary Care Unavailable AICHHOLZ, MCKAYLA Referring Unavailable AICHHOLZ, MCKAYLA J Primary Care Physician [phone] Tico, Stephanie Unavailable OLE RAMIREZ Attending Unavailable OLE RAMIREZ Consulting Unavailable AICHHOLZ, BUCKLER AND LACER MCKAYLA Primary Care Unavailable OLE RAMIREZ Admitting Unavailable ANTONY SHRESTHA Consulting Unavailable ALONDRA ., UMBERTO Admitting Unavailable ALONDRA ., UMBERTO Attending Unavailable AICHHOLZ, BUCKLER [employer] LACER MCKAYLA Primary Care Unavailable AFSANEH Loera, DR BOLANOS Consulting Unavailable MARYANNE POWER Consulting Unavailable GLENN KERR Consulting Unavailable YOMAIRA KERR Consulting Unavailable HATTIE GOFF Consulting Unavailable ALONDRA ., UMBERTO Consulting Unavailable TICO, STEPHANIE Attending Unavailable TICO, STEPHANIE Consulting Unavailable AICHHOLZ, BUCKLER [employer] LACER MCKAYLA Primary Care Unavailable TICO, STEPHANIE Admitting Unavailable REGLA ., DR DUMONT Admitting Unavailable AICHHOLZ, BUCKLER [employer] LACER MCKAYLA Primary Care Unavailable REGLA ., DR DUMONT Attending Unavailable ARAUZ ., DR DUMONT Consulting Unavailable COLLIN HUERTAS Consulting Unavailable CECILIA KAUFMAN Admitting Unavailable CECILIA KAUFMAN Attending Unavailable AICHHOLZ, BUCKLER [employer] LACER MCKAYLA Primary Care Unavailable RAFAEL GONGORA Attending Unavailable RAFAEL GONGORA Admitting Unavailable AICHHOLZ, BUCKLER [employer] LACER MCKAYLA Primary Care Unavailable AICHHOLZ, BUCKLER [employer] LACER MCKAYLA Admitting Unavailable AICHHOLZ, BUCKLER [employer] LACER MCKAYLA Primary Care Unavailable AICHHOLZ, BUCKLER [employer] LACER MCKAYLA Attending Unavailable AICHHOLZ, BUCKLER [employer] LACER MCKAYLA Consulting Unavailable LAKSHMIPATHY ., NARENDRANATH Attending Anette vailable LAKSHMIPATHY ., NARENDRANATH Consulting Anette vailable LAKSHMIPATHY ., NARENDRANATH Admitting Anette vailable AICHHOLZ, BUCKL[employer] LACER MCKAYLA Primary Care Unavailable VALENZUELA ., GIL Consulting Unavailable MORTENSEN ., DR CHAPARRO Aguillon Attending Unavailable MORTENSEN ., DR CHAPARRO Aguillon Admitting Unavailable AICHHOLZ, BUCKLER [employer] LACER MCKAYLA Primary Care Unavailable VALENZUELA ., GIL Consulting Unavailable MORTENSEN ., DR CHAPARRO Aguillon Admitting Unavailable AICHHOLZ, BUCKLER [employer] LACER MCKAYLA Primary Care Unavailable MORTENSEN ., DR CHAPARRO Aguillon Attending Unavailable HALKER ., SUBHASH Consulting Unavailable LAKSHMIPATHY ., NARENDRANATH Admitting Anette vailable LAKSHMIPATHY ., NARENDRANATH Attending Anette vailable AICHHOLZ, BUCKLER [employer] LACER MCKAYLA Primary Care Unavailable MORTENSEN ., DR CHAPARRO Aguillon Attending Unavailable MORTENSEN ., DR CHAPARRO Aguillon Admitting Unavailable VALENZUELA ., GIL Consulting Unavailable AICHHOLZ, BUCKLER [employer] LACER MCKAYLA Primary Care Unavailable VALENZUELA ., GIL Consulting Unavailable MORTENSEN ., DR CHAPARRO Aguillon Attending Unavailable MORTENSEN ., DR CHAPARRO Aguillon Admitting Unavailable AICHHOLZ, BUCKLER [employer] LACER MCKAYLA Primary Care Unavailable HATTIE BRODERICK Attending Unavailable HATTIE BRODERICK Admitting Unavailable AICHHOLZ, BUCKLER [employer] LACER MCKAYLA Primary Care Unavailable AICHHOLZ, BUCKLER AND LACER MCKAYLA Admitting Unavailable AICHHOLZ, BUCKLER AND LACER MCKAYLA Consulting Unavailable AICHHOLZ, BUCKLER [employer] LACER MCKAYLA Primary Care Unavailable AICHHOLZ, BUCKLER [employer] LACER MCKAYLA Attending Unavailable AICHHOLZ, BUCKLER [employer] LACER MCKAYLA Primary Care Unavailable MISC, DR LESLIE Admitting Unavailable MISC, DR LESLIE Attending Unavailable MISC, DR LESLIE Consulting Unavailable DIAB ., MARIANO Admitting Unavailable DIAB ., MARIANO Attending Unavailable DIAB ., MARIANO Consulting Unavailable AICHHOLZ, BUCKLER [employer] LACER MCKAYLA Primary Care Unavailable RASTEGAR, RICCO Consulting Unavailable AICHHOLZ, BUCKLER [employer] LACER MCKAYLA Admitting Unavailable AICHHOLZ, BUCKLER AND LACER MCKAYLA Primary Care Unavailable AICHHOLZ, BUCKLER AND LACER MCKAYLA Attending Unavailable AICHHOLZ, BUCKLER AND LACER MCKAYLA Consulting Unavailable DR PATRICIA VELOZ Consulting Unavailable TAMLYN ., CECILIA Attending Unavailable TAMLYN ., CECILIA Admitting Unavailable DR PATRICIA VELOZ Consulting Unavailable AICHHOLZ, BUCKLER [employer] LACER MCKAYLA Primary Care Unavailable TAMLYN ., CECILIA Consulting Unavailable MORTENSEN ., DR CHAPARRO Aguillon Attending Unavailable FESTUS ., DR CHAPARRO Aguillon Consulting Unavailable FESTUS ., DR CHAPARRO Aguillon Admitting Unavailable AICHHOLZ, BUCKLER [employer] LACER MCKAYLA Primary Care Unavailable HATTIE BRODERICK Attending Unavailable HATTIE BRODERICK Consulting Unavailable HATTIE BRODERICK Admitting Unavailable AICHHOLZ, BUCKLER [employer] LACER MCKAYLA Primary Care Unavailable HATTIE BAUTISTA Unavailable AICHHOLZ, SAYDA MCKAYLA Admitting Unavailable AICHHOLZ, BUCKLER AND LACER MCKAYLA Attending Unavailable AICHHOLZ, BUCKLER [employer] LACER MCKAYLA Consulting Unavailable AICHHOLZ, BUCKLER [employer] LACER MCKAYLA Primary Care Unavailable Brennan PHIPPS, Ty Primary Care Provider Brennan PHIPPS, Ty Primary Care Provider Aichholtalia DICTIONARY EDITOR, Mckayla Unavailable Aichholz DICTIONARY EDITOR, Mckayla Unavailable Elbert ARAUZ Attending Unavailable SARAH [...] Medication Allergies] Propensity to adverse reactions (disorder) [facility] Repository Medications Current Medications Medication [...] Start Date: 02/06/22 Status: Ordered HYDROcodone-acet aminophen ([place]) 5-325 MG tablet 1 tablet 3 (three) times a day as needed for severe pain. Active take 1 tablet by vandana twice daily as needed [place] 5-325 MG 1 tablet as needed Orally [...] every week ergocalciferol (Vitamin D2) 1.25 MG (99439 UT) capsule Indications: Vitamin D deficiency, unspecified Take 1 capsule (1.25 mg) by mouth 1 (one) time per week 12 capsule 1 01/16/2025 04/10/2025 Active Start: 10-27-2024 End: 01-19-2025 take 1 capsule by mouth two times weekly ergocalciferol (Vitamin D2) 1.25 MG (88976 UT) capsule Indications: Vitamin D deficiency, unspecified Take 1 capsule (1.25 mg) by mouth 2 (two) times a week 24 capsule 1 10/27/2024 01/19/2025 Active Start: 04-06-2024 End: 10-27-2024 take 1 capsule by mouth every week ergocalciferol (Vitamin D2) 1.25 MG (07663 UT) capsule Indications: Vitamin D deficiency, unspecified [...] 02/06/22 Status: Ordered take 1 tablet by [facility] every twenty-four hours Meloxicam 7.5 MG 1 [...] 02-06-2022 Chronic Other aftercare (1 source) Other [facility] (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 therapy; Translations: [OTH HALF-WAY CURRENT DRUG THERAPY] Onset: 12-05-2022 Episodic Other aftercare (1 source) 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 Unclassified (1 source) CUSTOMER SALES ADVISOR INJECT NONINSULN ANTIDIAB; Translations: [CUSTOMER SALES ADVISOR INJECT NONINSULN ANTIDIAB] Onset: 12-05-2022 Unclassified (3 [...] 08-27-2024 08-27-2024 Episodic Other aftercare (3 sources) care home (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; Translations: [CUSTOMER SALES ADVISOR CURRENT USE OF INSULIN] Onset: 12-05-2022 Episodic Other aftercare (20 sources) Long-term current use of inhaled steroid; Translations: [care home (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 inhaled steroids] Onset: 08-27-2024 [...] Range Facility Orders Onlyon 01-30-2025 Orders Only [id number] Mitzi Macias 1970 F Date Provider Department Center 01/30/2025 [id number], HISTORICAL [facility] Family History Problem Relation Age of Onset Heart attack Paternal Grandmother Family Status - Relation Status Age at Mother Father Paternal Grandmother Normal [facility] CA ECHO DOPPLER COMPLETEon 0 01-29-2025 [place] [address] Cardiology Report Signed Patient: MITZI MACIAS MR#: [id number] : 1970 Acct:[id number] Age/Sex: 54 / F ADM Date: 01/29/25 Loc: CARD Attending Dr: AMI ORO APRN Ordering Physician: AMI ORO APRN Date of Service: 01/29/25 Procedure(s): CA echo doppler complete Accession Number(s): [id number] cc: Mckayla Blas DICTIONARY EDITOR; AMI ORO APRN Patient Name: MITZI MACIAS MR#: [id number] : 1970 Exam Date: 01/29/2025 Ordering Doctor: AMI ORO [facility] ECHOCARDIOGRAM REPORT PROCEDURE: CA ECHO DOPPLER COMPLETE [...] HERRERA Signed By: 01/29/251839 DD/ 39 TD/TT: 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: [facility] Radiology, Radiologist, MD - 01/29/2025 [place] [address] Cardiology Report Signed Patient: MITZI MACIAS MR#: [id number] : 1970 Acct:[id number] Age/Sex: 54 / F ADM Date: 01/29/25 Loc: CARD Attending Dr: AMI ORO APRN Ordering Physician: AMI ORO APRN Date of Service: 01/29/25 Procedure(s): CA echo doppler complete Accession Number(s): [id number] cc: Mckayla Blas DICTIONARY EDITOR; AMI ORO APRN Patient Name: MITZI MACIAS MR#: [id number] : 1970 Exam Date: 01/29/2025 Ordering Doctor: [...] HERRERA Signed By: 01/29/251839 DD/ 39 TD/TT: 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: [facility] Radiology Study observation (narrative) [facility] CA ECHO DOPPLER COMPLETEOrde red By: Radiologist Radiology on 01-29-2025 [facility] Work Phone: Glucose (Bld) [Mass/Vol]on 0 01-29-2025 Glucose Blood, POC 121 mg/dL [facility] Laboratory - Hematology and Cell countson 01-29-2025 HbA1c (Bld) [Mass fraction] 8.4 % [facility] No Panel Informationon 01-29 Interpretation and review of laboratory results Abnormal [facility] Office Visiton 01-06-2025 Follow-up visit [id number] Mitzi Macias 1970 F Date Provider Department Center 01/06/2025 AMI SARABIA CARD [facility] Family History Problem Relation Age of Onset Heart attack Paternal Grandmother Family Status - Relation Status Age at Mother Father Paternal Grandmother Level of Service:27555 [place] OFFICE/OUTPATIENT ESTABLISHED MOD MDM 30 MIN Reason for Visit and Comments: Congestive Heart Failure [127] Hypertension [517465] Hyperlipidemia [182] Normal [facility] 36on 10-21-2024 36 Regarding lab results from 10/08/2024: MD Mickie Merritt MA Lipids, ALT AST, and BMP are normal. HbA1c was not performed. Continue current management. LM on patient's VM. Normal [facility] Glucose (Bld) [Mass/Vol]Orde red By: Mica Sauceda on 10-08-2024 Glucose Blood, POC 97 mg/dL [facility] - Hematology and Cell countson 10-08-2024 HbA1c (Bld) [Mass fraction] 7.4 % [facility] No Panel InformationOrdered By: Mica Sauceda on 10-08-2024 [facility] TBH UA (CLEAN/CATCH) MICROSC OPIC IF INDICATEon 10-08-2024 BILIRUBIN URINE Negative NEGATIVE [facility] BLOOD URINE Negative NEGATIVE [facility] Clarity (U) CLEAR CLEAR [facility] Color (U) YELLOW YELLOW [facility] GLUCOSE URINE UA Negative NEGATIVE mg/dL [facility] Interpretation and review of laboratory results Abnormal [facility] Ketones Ql (U) Negative NEGATIVE mg/dL [facility] Leukocyte esterase Test strip Ql (U) Negative NEGATIVE [facility] NITRITE URINE Negative NEGATIVE [facility] pH (U) 5.5 [pH] 5.0 - 9.0 [facility] Protein (U) [Mass/Vol] 30 mg/dL Abnormal NEG/TRACE NO [facility] SPECIFIC GRAVITY URINE >=1.030 Abnormal 1.005 - 1.025 [facility] URINE MICROSCOPIC INDICATED YES [facility] UROBILINOGEN URINE 1.0 EU/dL 0.2 - 1.0 EU/dL [facility] ALL CBC WITH AUTO DIFFon BASOPHILS ABSOLUTE AUTO 0.1 [facility] Basophils/100 WBC (Bld) 0.5 % 0.2 - 2.0 % [facility] Eosinophils/100 WBC (Bld) 1.9 % 0.9 - 7.0 % [facility] Erythrocyte distribution width (RBC) [Ratio] 14.6 % 11.0 - 15.0 % [facility] Hematocrit (Bld) [Volume fraction] 50.9 % High 36.0 - 48.0 % [facility] Hemoglobin (Bld) [Mass/Vol] 16.1 g/dL High 12.0 - 16.0 g/dL [facility] IMMATURE GRANULOCYTES ABS AUTO 0.04 High [facility] Immature granulocytes/100 WBC (Bld) 0.3 % 0.0 - 0.5 % [facility] Interpretation and review of laboratory results Abnormal [facility] LYMPHOCYTES ABSOLUTE AUTO 3.2 [facility] Lymphocytes/100 WBC (Bld) 25.1 % 20.5 - 60.0 % [facility] MCH (RBC) [Entitic mass] 29.2 pg 26.7 - 34.0 pg [facility] MCHC (RBC) [Mass/Vol] 31.6 g/dL 29.9 - 35.2 g/dL [facility] MCV (RBC) [Entitic vol] 92.2 fL 81.0 - 99.0 fL [facility] MONOCYTES ABSOLUTE AUTO 0.7 [facility] Monocytes/100 WBC (Bld) 5.2 % 1.7 - 12.0 % [facility] NEUTROPHILS ABSOLUTE AUTO 8.6 High [facility] Neutrophils/100 WBC (Bld) 67 % 43.0 - 75.0 % [facility] Platelet mean volume (Bld) [Entitic vol] 12.8 fL 9.5 - 13.5 fL [facility] EO # 0.2 [facility] PLT 122 Low [facility] RBC 5.52 High [facility] WBC 12.8 High [facility] Office Visiton 08-08-2024 Follow-up visit [id number] Mitzi Macias 1970 F Date Provider Department Center 08/08/2024 [id number] BRIDGES [facility] Family History Problem Relation Age of Onset Heart attack Paternal Grandmother Family Status - Relation Status Age at Paternal Grandmother Level of Service:88316 [place] OFFICE/OUTPATIENT ESTABLISHED MOD MDM 30 MIN Reason for Visit and Comments: Congestive Heart Failure [127] - Denies chest pain, SOB, and palpitations. Hypertension [711600] Hyperlipidemia [182] LVH [Other] Edema [[id number]] - Denies worsening edema. She sees wound care for RLE ulcer. She was seeing the vein specialists here in [facility] but they are moving to [place] in a few weeks. Normal [facility] Glucose (Bld) [Mass/Vol]Orde red By: Mica Sauceda on 05-27-2024 Glucose Blood, POC 158 mg/dL [facility] - Hematology and Cell countson 05-27-2024 HbA1c (Bld) [Mass fraction] 9.2 % [facility] No Panel InformationOrdered By: Mica Sauceda on 05-27-2024 [facility] CREATININEon 05-12-2024 Creatinine [Mass/Vol] 0.92 mg/dL 0.55 - 1.02 mg/dL [facility] GFR/1.73 sq M.predicted CKD-EPI (S/P/Bld) [Vol rate/Area] >60 >=60 mL/min/1.73m 2 [facility] EGFR-NON AF ANGUILLAN >60 >=60 mL/min/1.73m 2 [facility] CBC AUTO DIFFon 12-06-2022 BASO # 0.0 103/ul Normal 0.0-0.1 [facility] Comment on above: Performed By: #### C BC #### [facility] [address] [address] [address] Ashlie Hills Basophils/100 WBC (Bld) 0.1 % Critically low 0.2-2.0 [facility] Comment on above: Performed By: #### C BC #### [facility] [address] [address] [address] Ashlie Hills EO # 0.0 103/ul Normal 0.0-0.7 [facility] Comment on above: Performed By: #### C BC #### [facility] [address] [address] [address] Ashlie Hills Eosinophils/100 WBC (Bld) 0.0 % Critically low 0.9-7.0 [facility] Comment on above: Performed By: #### C BC #### [facility] [address] [place] [address] Dr. Ashlie Hills Erythrocyte distribution width (RBC) [Ratio] 14.9 % Normal 11.0-15.0 [facility] Comment on above: Performed By: #### C BC #### [facility] [address] [place] [address] Dr. Ashlie Hills Hematocrit (Bld) [Volume fraction] 46.2 % Normal 36.0-48.0 [facility] Comment on above: Performed By: #### C BC #### [facility] [address] [place] [address] Dr. Ashlie Hills Hemoglobin (Bld) [Mass/Vol] 14.7 g/dL Normal 12.0-16.0 [facility] Comment on above: Performed By: #### C BC #### [facility] [address] [address] [address] Ashlie Hills IG # 0.06 10e3/ul Critically high 0.00-0.03 [facility] Comment on above: Performed By: #### C BC #### [facility] [address] [place] [address] Dr. Ashlie Hills IG % 0.4 % Normal 0.0-0.5 [facility] Comment on above: Performed By: #### C BC #### [facility] [address] [place] [address] Dr. Ashlie Hills LYMPH # 1.3 103/ul Normal 1.2-3.8 [facility] Comment on above: Performed By: #### C BC #### [facility] [address] [place] [address] Dr. Ashlie Hills Lymphocytes/100 WBC (Bld) 9.4 % Critically low 20.5-60.0 [facility] Comment on above: Performed By: #### C BC #### [facility] [address] [place] [address] Dr. Ashlie Hills MANUAL DIFF REQ NO Normal [facility] Comment on above: Performed By: #### C BC #### [facility] [address] [place] [address] Dr. Ashlie Hills MCH (RBC) [Entitic mass] 28.4 pg Normal 26.7-34.0 [facility] Comment on above: Performed By: #### C BC #### [facility] [address] [place] [address] Dr. Ashlie Hills MCHC (RBC) [Mass/Vol] 31.8 g/dL Normal 29.9-35.2 [facility] Comment on above: Performed By: #### C BC #### [facility] [address] [place] [address] Dr. Ashlie Hills MCV (RBC) [Entitic vol] 89.4 fL Normal 81.0-99.0 [facility] Comment on above: Performed By: #### C BC #### [facility] [address] [place] [address] Dr. Ashlie Hills MONO # 0.5 103/ul Normal 0.3-0.8 [facility] Comment on above: Performed By: #### C BC #### [facility] [address] [place] [address] Dr. Ashlie Hills Monocytes/100 WBC (Bld) 3.4 % Normal 1.7-12.0 [facility] Comment on above: Performed By: #### C BC #### [facility] [address] [place] [address] Dr. Ashlie Hills NEUT # 11.8 103/ul Critically high 1.4-6.5 [facility] Comment on above: Performed By: #### C BC #### [facility] [address] [place] [address] Dr. Ashlie Hills Neutrophils/100 WBC (Bld) 86.7 % Critically high 43.0-75.0 [facility] Comment on above: Performed By: #### C BC #### [facility] [address] [place] [address] Dr. Ashlie Hills Platelet mean volume (Bld) [Entitic vol] 12.6 fL Normal 9.5-13.5 [facility] Comment on above: Performed By: #### C BC #### [facility] [address] [place] [address] Dr. Ashlie Hills PLT 133 103/ul Critically low 150-450 [facility] Comment on above: Performed By: #### C BC #### [facility] [address] [place] [address] Dr. Ashlie Hills RBC 5.17 106/ul Normal 4.20-5.40 [facility] Comment on above: Performed By: #### C BC #### [facility] [address] [place] [address] Dr. Ashlie Hills WBC 13.6 103/ul Critically high 4.0-11.0 [facility] Comment on above: Performed By: #### C BC #### [facility] [address] [place] [address] Dr. Ashlie Hills MAGNESIUMon 12-06-2022 Magnesium [Mass/Vol] 2.2 mg/dL Normal 1.8-2.4 [facility] Comment on above: Performed By: #### I NFLUAB #### [facility] [address] [place] [address] Dr. Ashlie Hills POINT OF CARE GLUCOSEon - Glucose [Mass/Vol] 340 mg/dL Critically high 74-106 T [facility] Comment on above: Performed By: #### P OCGLUC #### [facility] [address] [address] [address] Ashlie Hills Glucose [Mass/Vol] 276 mg/dL Critically high 74-106 [facility] Comment on above: Performed By: #### C BC #### [facility] [address] [address] [address] Ashlie Hills Glucose [Mass/Vol] 333 mg/dL Critically high 74-106 [facility] Comment on above: Performed By: #### C BC #### [facility] [address] [address] [address] Ashlie Hills PROF CHEM 8 (BAS METB)on Anion gap [Moles/Vol] 10.9 mmol/L Normal [facility] Comment on above: Performed By: #### I NFLUAB #### [facility] [address] [place] [address] Dr. Ashlie Hills Calcium [Mass/Vol] 9.3 mg/dL Normal 8.5-10.1 [facility] Comment on above: Performed By: #### I NFLUAB #### [facility] [address] [address] [address] Ashlie Hills Chloride [Moles/Vol] 103 mmol/L Normal 98-107 [facility] Comment on above: Performed By: #### I NFLUAB #### [facility] [address] [place] [address] Dr. Ashlie Hills CO2 [Moles/Vol] 31.2 mmol/L Normal 21.0-32.0 [facility] Comment on above: Performed By: #### I NFLUAB #### [facility] [address] [address] [address] Ashlie Hills Creatinine [Mass/Vol] 0.96 mg/dL Normal 0.55-1.02 [facility] Comment on above: Performed By: #### I NFLUAB #### [facility] [address] [address] [address] Ashlie Hills EGFR-AF ANGUILLAN >60 Normal >=60 [facility] Comment on above: Performed By: #### I NFLUAB #### [facility] [address] [address] [address] Ashlie Hills EGFR-NON AF ANGUILLAN >60 Normal >=60 [facility] Comment on above: Performed By: #### I NFLUAB #### [facility] [address] [address] [address] Ashlie Hills Glucose [Mass/Vol] 288 mg/dL Critically high 74-106 T [facility] Comment on above: Performed By: #### I NFLUAB #### [facility] [address] [address] [address] Ashlie Hills Potassium [Moles/Vol] 5.1 mmol/L Normal 3.5-5.1 [facility] Comment on above: Performed By: #### I NFLUAB #### [facility] [address] [place] [address] Dr. Ashlie Hills Sodium [Moles/Vol] 140 mmol/L Normal 136-145 [facility] Comment on above: Performed By: #### I NFLUAB #### [facility] [address] [place] [address] Dr. Ashlie Hills Urea nitrogen [Mass/Vol] 30.0 mg/dL Critically high 7.0-18.0 [facility] Comment on above: Performed By: #### I NFLUAB #### [facility] [address] [place] [address] Dr. Ashlie Hills Urea nitrogen/Creatinine [Mass ratio] 31.2 mg/mg Normal [facility] Comment on above: Performed By: #### I NFLUAB #### [facility] [address] [place] [address] Dr. Ashlie Hills CBC AUTO DIFFon 12-05-2022 BASO # 0.0 103/ul Normal 0.0-0.1 [facility] Comment on above: Performed By: #### C BC #### [facility] [address] [place] [address] Dr. Ashlie Hills Basophils/100 WBC (Bld) 0.4 % Normal 0.2-2.0 [facility] Comment on above: Performed By: #### C BC #### [facility] [address] [address] [address] Ashlie Hills EO # 0.0 103/ul Normal 0.0-0.7 [facility] Comment on above: Performed By: #### C BC #### [facility] [address] [place] [address] Dr. Ashlie Hills Eosinophils/100 WBC (Bld) 0.0 % Critically low 0.9-7.0 [facility] Comment on above: Performed By: #### C BC #### [facility] [address] [place] [address] Dr. Ashlie Hills Erythrocyte distribution width (RBC) [Ratio] 14.8 % Normal 11.0-15.0 [facility] Comment on above: Performed By: #### C BC #### [facility] [address] [place] [address] Dr. Ashlie Hills Hematocrit (Bld) [Volume fraction] 49.9 % Critically high 36.0-48.0 [facility] Comment on above: Performed By: #### C BC #### [facility] [facility] [address] [place] [address] Dr. Ashlie Hills Hemoglobin (Bld) [Mass/Vol] 15.7 g/dL Normal 12.0-16.0 [facility] Comment on above: Performed By: #### C BC #### [facility] [address] [place] [address] Dr. Ashlie Hills IG # 0.04 10e3/ul Critically high 0.00-0.03 [facility] Comment on above: Performed By: #### C BC #### [facility] [address] [place] [address] Dr. Ashlie Hills IG % 0.5 % Normal 0.0-0.5 [facility] Comment on above: Performed By: #### C BC #### [facility] [address] [place] [address] Dr. Ashlie Hills LYMPH # 1.1 103/ul Critically low 1.2-3.8 [facility] Comment on above: Performed By: #### C BC #### [facility] [address] [address] [address] Ashlie Hills Lymphocytes/100 WBC (Bld) 12.7 % Critically low 20.5-60.0 [facility] Comment on above: Performed By: #### C BC #### [facility] [address] [address] [address] Ashile Hills MANUAL DIFF REQ NO Normal [facility] Comment on above: Performed By: #### C BC #### [facility] [address] [address] [address] Ashlie Hills MCH (RBC) [Entitic mass] 28.1 pg Normal 26.7-34.0 [facility] Comment on above: Performed By: #### C BC #### [facility] [address] [place] [address] Dr. Ashlie Hills MCHC (RBC) [Mass/Vol] 31.5 g/dL Normal 29.9-35.2 [facility] Comment on above: Performed By: #### C BC #### [facility] [address] [place] [address] Dr. Ashlie Hills MCV (RBC) [Entitic vol] 89.3 fL Normal 81.0-99.0 [facility] Comment on above: Performed By: #### C BC #### [facility] [address] [place] [address] Dr. Ashlie Hills MONO # 0.1 103/ul Critically low 0.3-0.8 [facility] Comment on above: Performed By: #### C BC #### [facility] [address] [place] [address] Dr. Ashlie Hills Monocytes/100 WBC (Bld) 1.3 % Critically low 1.7-12.0 [facility] Comment on above: Performed By: #### C BC #### [facility] [address] [place] [address] Dr. Ashlie Hills NEUT # 7.2 103/ul Critically high 1.4-6.5 [facility] Comment on above: Performed By: #### C BC #### [facility] [address] [address] [address] Ashlie Hills Neutrophils/100 WBC (Bld) 85.1 % Critically high 43.0-75.0 [facility] Comment on above: Performed By: #### C BC #### [facility] [address] [address] [address] Ashlie Hills Platelet mean volume (Bld) [Entitic vol] 12.2 fL Normal 9.5-13.5 [facility] Comment on above: Performed By: #### C BC #### [facility] [address] [address] [address] Ashlie Hills PLT 116 103/ul Critically low 150-450 [facility] Comment on above: Performed By: #### C BC #### [facility] [address] [place] [address] Dr. Ashlie Hills RBC 5.59 106/ul Critically high 4.20-5.40 [facility] Comment on above: Performed By: #### C BC #### [facility] [address] [address] [address] Ashlie Hills WBC 8.5 103/ul Normal 4.0-11.0 [facility] Comment on above: Performed By: #### C BC #### [facility] [address] [place] [address] Dr. Ashlie Hills CTA CHEST WO W [...] GOFF Date: 2022-12-05 01:52 Normal [facility] MAGNESIUMon 12-05-2022 Magnesium [Mass/Vol] 2.1 mg/dL Normal 1.8-2.4 [facility] Comment on above: Performed By: #### P OCGLUC #### [facility] [address] [address] [address] Ashlie Hills POINT OF CARE GLUCOSEon 11-08 Glucose [Mass/Vol] 293 mg/dL Critically high [address] [place] [address] Comment on above: Performed By: #### P OCGLUC #### [facility] [address] [address] [address] Ashlie Hills Glucose [Mass/Vol] 269 mg/dL Critically high [facility] Comment on above: Performed By: #### P OCGLUC #### [facility] [address] [address] [address] Ashlie Hills Glucose [Mass/Vol] 223 mg/dL Critically high [address] [place] [address] Comment on above: Performed By: #### C VDAGS #### [facility] [address] [address] [address] Ashlie Hills PROF CHEM 8 (BAS METB)on Anion gap [Moles/Vol] 11.6 mmol/L Normal [facility] Comment on above: Performed By: #### P OCGLUC #### [facility] [address] [address] [address] Ashlie Hills Calcium [Mass/Vol] 9.2 mg/dL Normal 8.5-10.1 [facility] Comment on above: Performed By: #### P OCGLUC #### [facility] [address] [address] [address] Ashlie Hills Chloride [Moles/Vol] 102 mmol/L Normal 98-107 [facility] Comment on above: Performed By: #### P OCGLUC #### [facility] [address] [address] [address] Ashlie Hills CO2 [Moles/Vol] 28.7 mmol/L Normal 21.0-32.0 [facility] Comment on above: Performed By: #### P OCGLUC #### [facility] [address] [address] [address] Ashlie Hills Creatinine [Mass/Vol] 1.04 mg/dL Critically high 0.55-1.02 [facility] Comment on above: Performed By: #### P OCGLUC #### [facility] [address] [address] [address] Ashlie Hills EGFR-AF ANGUILLAN >60 Normal >=60 [facility] Comment on above: Performed By: #### P OCGLUC #### [facility] [address] [address] [address] Ashlie Hills EGFR-NON AF ANGUILLAN 56 mL/min/1.73m2 Critically low >=60 [facility] Comment on above: Performed By: #### P OCGLUC #### [facility] [address] [address] [address] Ashlie Hills Glucose [Mass/Vol] 231 mg/dL Critically high 74-106 [facility] Comment on above: Performed By: #### P OCGLUC #### [facility] [address] [address] [address] Ashlie Hills Potassium [Moles/Vol] 4.3 mmol/L Normal 3.5-5.1 [facility] Comment on above: Performed By: #### P OCGLUC #### [facility] [address] [place] [address] Dr. Ashlie Hills Sodium [Moles/Vol] 138 mmol/L Normal 136-145 [facility] Comment on above: Performed By: #### P OCGLUC #### [facility] [address] [place] [address] Dr. Ashlie iHlls Urea nitrogen [Mass/Vol] 17.0 mg/dL Normal 7.0-18.0 [facility] Comment on above: Performed By: #### P OCGLUC #### [facility] [address] [place] [address] Dr. Ashlie Hills Urea nitrogen/Creatinine [Mass ratio] 16.3 mg/mg Normal [facility] Comment on above: Performed By: #### P OCGLUC #### [facility] [address] [place] [address] Dr. Ashlie Hills RESPIRATORY PANEL PLUSon Adenovirus Not detected Normal NOT DETECTED [facility] Comment on above: Performed By: #### C VDAGS #### [facility] [address] [place] [address] Dr. Ashlie Shaffer. Parapertusis Not detected Normal NOT DETECTED [facility] Comment on above: Performed By: #### C VDAGS #### [facility] [address] [place] [address] Dr. Ashlie Shaffer. Pertussis Not detected Normal NOT DETECTED [facility] Comment on above: Performed By: #### C VDAGS #### [facility] [address] [place] [address] Dr. Ashlie Hills Chlamydia Pneumoniae Not detected Normal NOT DETECTED [facility] Comment on above: Performed By: #### C VDAGS #### [facility] [address] [place] [address] Dr. Ashlie Hills Coronavirus 229E Not detected Normal NOT DETECTED [facility] Comment on above: Performed By: #### C VDAGS #### [facility] [address] [place] [address] Dr. Ashlie Hills Coronavirus HKU1 Not detected Normal NOT DETECTED [facility] Comment on above: Performed By: #### C VDAGS #### [facility] [address] [place] [address] Dr. Ashlie Hills Coronavirus NL63 Not detected Normal NOT DETECTED [facility] Comment on above: Performed By: #### C VDAGS #### [facility] [address] [address] [address] Ashlie Hills Coronavirus OC43 Not detected Normal NOT DETECTED [facility] Comment on above: Performed By: #### C VDAGS #### [facility] [address] [address] [address] Ashlie Hills Influenza A H1 Not detected Normal NOT DETECTED [facility] Comment on above: Performed By: #### C VDAGS #### [facility] [address] [place] [address] Dr. Ashlie Hills Influenza A H1 2009 Not detected Normal NOT DETECTED [facility] Comment on above: Performed By: #### C VDAGS #### [facility] [address] [place] [address] Dr. Ashlie Hills Influenza A H3 Not detected Normal NOT DETECTED [facility] Comment on above: Performed By: #### C VDAGS #### [facility] [address] [place] [address] Dr. Ashlie Hills Influenza B Not detected Normal NOT DETECTED [facility] Comment on above: Performed By: #### C VDAGS #### [facility] [address] [place] [address] Dr. Ashlie Hills Metapneumovirus Not detected Normal NOT DETECTED [facility] Comment on above: Performed By: #### C VDAGS #### [facility] [address] [place] [address] Dr. Ashlie Hills Mycoplas. Pneumoniae Not detected Normal NOT DETECTED [facility] Comment on above: Performed By: #### C VDAGS #### [facility] [address] [address] [address] Ashlie Hills Parainfluenza 1 Not detected Normal NOT DETECTED [facility] Comment on above: Performed By: #### C VDAGS #### [facility] [address] [place] [address] Dr. Ashlie Hills Parainfluenza 2 Not detected Normal NOT DETECTED [facility] Comment on above: Performed By: #### C VDAGS #### [facility] [address] [place] [address] Dr. Ashlie Hills Parainfluenza 3 Detected Abnormal NOT DETECTED [facility] Comment on above: Performed By: #### C VDAGS #### [facility] [address] [place] [address] Dr. Ashlie Hills Parainfluenza 4 Not detected Normal NOT DETECTED [facility] Comment on above: Performed By: #### C VDAGS #### [facility] [address] [place] [address] Dr. Ashlie Hills Rhino/Enterovirus Not detected Normal NOT DETECTED [facility] Comment on above: Performed By: #### C VDAGS #### [facility] [address] [place] [address] Dr. Ashlie Hills RP2 Header 1 RESPIRATORY PANEL: VIRUSES Normal [facility] Comment on above: Performed By: #### C VDAGS #### [facility] [address] [place] [address] Dr. Ashlie Hills RP2 Header 2 RESPIRATORY PANEL: BACTERIA Normal [facility] Comment on above: Performed By: #### C VDAGS #### [facility] [address] [place] [address] Dr. Ashlie Hills RSV Not detected Normal NOT DETECTED [facility] Comment on above: Performed By: #### C VDAGS #### [facility] [address] [place] [address] Dr. Ashlie Hills SARS-CoV-2 (COVID-19) RNA MADDY+probe Ql (Unsp spec) Not detected Normal NOT DETECTED [facility] Comment on above: Performed By: #### C VDAGS #### [facility] [address] [place] [address] Dr. Ashlie Hills XR CHEST 1 Von [...] POWER Date: 2022-12-04 22:23 Normal [facility] BLOOD GASES BTYon 12-04-2022 02 MODE ROOM AIR Normal [facility] Comment on above: Performed By: #### C BC #### [facility] [address] [place] [address] Dr. Ashlie Hills ALLENS TEST Positive [facility] Comment on above: Performed By: #### C BC #### [facility] [address] [place] [address] Dr. Ashlie Hills Base excess Calc (Bld) [Moles/Vol] 5.4 mmol/L Critically high -2.0-2.0 [facility] Comment on above: Performed By: #### C BC #### [facility] [address] [place] [address] Dr. Ashlie Hills BIPAP PRESSURE Normal [facility] Comment on above: Performed By: #### C BC #### [facility] [address] [place] [address] Dr. Ashlie Hills CPAP [facility] Comment on above: Performed By: #### C BC #### [facility] [address] [place] [address] Dr. Ashlie Hills FIO2 [facility] Comment on above: Performed By: #### C BC #### [facility] [address] [place] [address] Dr. Ashlie Hills HCO3 (Bld) [Moles/Vol] 30.8 mmol/L Critically high 22.0-26 .0 [facility] Comment on above: Performed By: #### C BC #### [facility] [address] [place] [address] Dr[facility] Comment on above: Performed By: #### C BC #### [facility] [address] [address] [address] Ashlie Hills MINUTE VOLUME Normal [facility] Comment on above: Performed By: #### C BC #### [facility] [address] [place] [address] Dr. Ashlie Hills Oxygen (Bld) [Partial pressure] 46.3 mm[Hg] Critically low 80.0-100.0 [facility] Comment on above: Performed By: #### C BC #### [facility] [address] [place] [address] Dr. Ashlie Hills Oxygen saturation in Blood 83.9 % Critically low 95.0-100.0 [facility] Comment on above: Performed By: #### C BC #### [facility] [address] [place] [address] Dr. Ashlie Hills PCO2 54.2 mmHg Critically high 35.0-45.0 [facility] Comment on above: Performed By: #### C BC #### [facility] [address] [place] [address] Dr. Ashlie Hills PEEP [facility] Comment on above: Performed By: #### C BC #### [facility] [address] [place] [address] Dr. Ashlie Hills pH (Bld) 7.363 [pH] Normal 7.350-7.450 [facility] Comment on above: Performed By: #### C BC #### [facility] [address] [place] [address] Dr. Ashlie Hills PIP [facility] Comment on above: Performed By: #### C BC #### [facility] [address] [place] [address] Dr. Ashlie Hills PS [facility] Comment on above: Performed By: #### C BC #### [facility] [address] [place] [address] Dr. Ashlie Hills PUNCTURE SITE LR [facility] Comment on above: Performed By: #### C BC #### [facility] [address] [place] [address] Dr. Ashlie Hills [facility] Comment on above: Performed By: #### C BC #### [facility] [address] [place] [address] Dr. Ashlie Hills [facility] Comment on above: Performed By: #### C BC #### [facility] [address] [place] [address] Dr. Ashlie Hills [facility] Comment on above: Performed By: #### C BC #### [facility] [address] [place] [address] Dr. Ashlie Hills BNPon 12-04-2022 Natriuretic peptide B (Bld) [Mass/Vol] 76.0 pg/mL Normal <=900.0 [facility] Comment on above: Performed By: #### P OCGLUC #### [facility] [address] [place] [address] Dr. Ashlie Hills CBC AUTO DIFFon 12-04-2022 BASO # 0.1 103/ul Normal 0.0-0.1 [facility] Comment on above: Performed By: #### C BC #### [facility] [address] [place] [address] Dr. Ashlie Hills Basophils/100 WBC (Bld) 0.6 % Normal 0.2-2.0 [facility] Comment on above: Performed By: #### C BC #### [facility] [address] [place] [address] Dr. Ashlie Hills EO # 0.2 103/ul Normal 0.0-0.7 [facility] Comment on above: Performed By: #### C BC #### [facility] [address] [place] [address] Dr. Ashlie Hills Eosinophils/100 WBC (Bld) 1.9 % Normal 0.9-7.0 [facility] Comment on above: Performed By: #### C BC #### [facility] [address] [place] [address] Dr. Ashlie Hills Erythrocyte distribution width (RBC) [Ratio] 15.0 % Normal 11.0-15.0 [facility] Comment on above: Performed By: #### C BC #### [facility] [address] [place] [address] Dr. Ashlie Hills Hematocrit (Bld) [Volume fraction] 49.1 % Critically high 36.0-48.0 [facility] Comment on above: Performed By: #### C BC #### [facility] [address] [place] [address] Dr. Ashlie Hills Hemoglobin (Bld) [Mass/Vol] 15.6 g/dL Normal 12.0-16.0 [facility] Comment on above: Performed By: #### C BC #### [facility] [address] [place] [address] Dr. Ashlie Hills IG # 0.02 10e3/ul Normal 0.00-0.03 [facility] Comment on above: Performed By: #### C BC #### [facility] [address] [place] [address] Dr. Ashlie Hills IG % 0.2 % Normal 0.0-0.5 [facility] Comment on above: Performed By: #### C BC #### [facility] [address] [place] [address] Dr. Ashlie Hills LYMPH # 2.8 103/ul Normal 1.2-3.8 [facility] Comment on above: Performed By: #### C BC #### [facility] [address] [place] [address] Dr. Ashlie Hills Lymphocytes/100 WBC (Bld) 29.9 % Normal 20.5-60.0 [facility] Comment on above: Performed By: #### C BC #### [facility] [address] [place] [address] Dr. Ashlie Hills MANUAL DIFF REQ NO Normal [facility] Comment on above: Performed By: #### C BC #### [facility] [address] [place] [address] Dr. Ashlie Hills MCH (RBC) [Entitic mass] 28.5 pg Normal 26.7-34.0 [facility] Comment on above: Performed By: #### C BC #### [facility] [address] [address] [address] Ashlie Hills MCHC (RBC) [Mass/Vol] 31.8 g/dL Normal 29.9-35.2 [facility] Comment on above: Performed By: #### C BC #### [facility] [address] [address] [address] Ashlie Hills MCV (RBC) [Entitic vol] 89.8 fL Normal 81.0-99.0 [facility] Comment on above: Performed By: #### C BC #### [facility] [address] [address] [address] Ashlie Hills MONO # 1.0 103/ul Critically high 0.3-0.8 [facility] Comment on above: Performed By: #### C BC #### [facility] [address] [address] [address] Ashlie Hills Monocytes/100 WBC (Bld) 10.6 % Normal 1.7-12.0 [facility] Comment on above: Performed By: #### C BC #### [facility] [address] [place] [address] Dr. Ashlie Hills NEUT # 5.3 103/ul Normal 1.4-6.5 [facility] Comment on above: Performed By: #### C BC #### [facility] [address] [address] [address] Ashlie Hills Neutrophils/100 WBC (Bld) 56.8 % Normal 43.0-75.0 [facility] Comment on above: Performed By: #### C BC #### [facility] [address] [address] [address] Ashlie Hills Platelet mean volume (Bld) [Entitic vol] 12.5 fL Normal 9.5-13.5 [facility] Comment on above: Performed By: #### C BC #### [facility] [address] [address] [address] Ashlie Hills PLT 109 103/ul Critically low 150-450 [facility] Comment on above: Performed By: #### C BC #### [facility] [address] [address] [address] Ashlie Hills RBC 5.47 106/ul Critically high 4.20-5.40 [facility] Comment on above: Performed By: #### C BC #### [facility] [address] [place] [address] Dr. Ashlie Hills WBC 9.4 103/ul Normal 4.0-11.0 [facility] Comment on above: Performed By: #### C BC #### [facility] [address] [place] [address] Dr. Ashlie Hills PROF 14(COMP METB)on 023 Albumin [Mass/Vol] 2.9 g/dL Critically low 3.4-5.0 [facility] Comment on above: Performed By: #### C BC #### [facility] [address] [place] [address] Dr. Ashlie Hills Albumin/Globulin [Mass ratio] 0.6 {ratio} Normal [facility] Comment on above: Performed By: #### C BC #### [facility] [address] [place] [address] Dr. Ashlie Hills ALP [Catalytic activity/Vol] 64 U/L Normal 46-116 [facility] Comment on above: Performed By: #### C BC #### [facility] [address] [place] [address] Dr. Ashlie Hills ALT [Catalytic activity/Vol] 16 U/L Normal 14-59 [facility] Comment on above: Performed By: #### C BC #### [facility] [address] [place] [address] Dr. Ashlie Hills Anion gap [Moles/Vol] 9.6 mmol/L Normal [facility] Comment on above: Performed By: #### C BC #### [facility] [address] [place] [address] Dr. Ashlie Hills AST [Catalytic activity/Vol] 16 U/L Normal 15-37 [facility] Comment on above: Performed By: #### C BC #### [facility] [address] [address] [address] Ashlie Hills Bilirubin [Mass/Vol] 0.5 mg/dL Normal 0.2-1.0 [facility] Comment on above: Performed By: #### C BC #### [facility] [address] [address] [address] Ashlie Hills Calcium [Mass/Vol] 8.7 mg/dL Normal 8.5-10.1 [facility] Comment on above: Performed By: #### C BC #### [facility] [address] [address] [address] Ashlie Hills Chloride [Moles/Vol] 103 mmol/L Normal 98-107 [facility] Comment on above: Performed By: #### C BC #### [facility] [address] [place] [address] Dr. Ashlie Hills CO2 [Moles/Vol] 30.7 mmol/L Normal 21.0-32.0 [facility] Comment on above: Performed By: #### C BC #### [facility] [address] [place] [address] Dr. Ashlie Hills Creatinine [Mass/Vol] 0.96 mg/dL Normal 0.55-1.02 [facility] Comment on above: Performed By: #### C BC #### [facility] [address] [place] [address] Dr. Ashlie Hills EGFR-AF ANGUILLAN >60 Normal >=60 [facility] Comment on above: Performed By: #### C BC #### [facility] [address] [place] [address] Dr. Ashlie Hills EGFR-NON AF ANGUILLAN >60 Normal >=60 [facility] Comment on above: Performed By: #### C BC #### [facility] [address] [place] [address] Dr. Ashlie Hills Globulin (S) [Mass/Vol] 4.7 g/dL Normal [facility] Comment on above: Performed By: #### C BC #### [facility] [address] [place] [address] Dr. Ashlie Hills Glucose [Mass/Vol] 170 mg/dL Critically high 74-106 [facility] Comment on above: Performed By: #### C BC #### [facility] [address] [address] [address] Ashlie Hills Potassium [Moles/Vol] 4.3 mmol/L Normal 3.5-5.1 [facility] Comment on above: Performed By: #### C BC #### [facility] [address] [address] [address] Ashlie Hills Protein [Mass/Vol] 7.6 g/dL Normal 6.4-8.2 [facility] Comment on above: Performed By: #### C BC #### [facility] [address] [place] [address] Dr. Ashlie Hills Sodium [Moles/Vol] 139 mmol/L Normal 136-145 [facility] Comment on above: Performed By: #### C BC #### [facility] Laboratory [address] [place] [address] Dr. Ashlie Hills Urea nitrogen [Mass/Vol] 16.0 mg/dL Normal 7.0-18.0 [facility] Comment on above: Performed By: #### C BC #### [facility] [address] [place] [address] Dr. Ashlie Hills Urea nitrogen/Creatinine [Mass ratio] 16.7 mg/mg Normal [facility] Comment on above: Performed By: #### C BC #### [facility] [address] [place] [address] Dr. Ashlie Hills SYMPTOMATIC COVID-19 ANTIGEN on 12-04-2022 EUA Statement SEE BELOW Normal [facility] Comment on above: [...] Performed By: #### C VDAGS #### [facility] [address] [place] [address] Dr. Ashlie Hills SARS-CoV-2 (COVID-19) RNA MADDY+probe Ql (Unsp spec) Negative Normal NEGATIVE [facility] Comment on above: Performed By: #### C VDAGS #### [facility] [address] [place] [address] Dr. Ashlie Hills TROPONIN, HIGH SENSITIVITYon 12-04-2022 HSTROP 8.9 pg/mL Normal 4.0-51.3 [facility] Comment on above: Result Comment: CUT- OFF POINTS HAVE BEEN ESTABLISHED BASED ON THE FOURTH UNIVERSAL DEFINITIONS OF MYOCARDIAL INFARCTION. THE UPPER REFERENCE LIMIT (URL) OF TROPONIN, DEFINED THE 99TH PERCENTILE OF cTnI DISTRIBUTION IN A REFERENCE POPULATION, HAS BEEN CONFIRMED THE DECISION THRESHOLD FOR MO DIAGNOSIS. Performed By: #### P OCGLUC #### [facility] [address] [place] [address] Dr. Ashlie Hills MICROALBUMIN, RAND URon 11-06 mALB 35.8 mg/dL Critically high <=30.0 [facility] Comment on above: Performed By: #### C VDAGS #### [facility] [address] [place], [place] [id number] Dr. Ashlie Hills UA RANDOM W/MICROSCOPICon BACTERIA NONE SEEN Normal NONE SEEN [facility] Comment on above: Performed By: #### C VDAGS #### [facility] [address] [place] [address] Dr. Ashlie Hills Bilirubin Ql (U) Negative Normal NEGATIVE [facility] Comment on above: Performed By: #### C VDAGS #### [facility] [address] [place] [address] Dr. Ashlie Hills CAST SEEN Abnormal NONE SEEN [facility] Comment on above: Performed By: #### C VDAGS #### [facility] [address] [place] [address] Dr. Ashlie Hills Clarity (U) CLEAR Normal CLEAR [facility] Comment on above: Performed By: #### C VDAGS #### [facility] [address] [place] [address] Dr. Ashlie Hills Color (U) YELLOW Normal YELLOW [facility] Comment on above: Performed By: #### C VDAGS #### [facility] [address] [place] [address] Dr. Ashlie Hills Crystals LM Nom (Urine sed) NONE SEEN Normal NONE SEEN [facility] Comment on above: Performed By: #### C VDAGS #### [facility] [address] [place] [address] Dr. Ashlie Hills Epithelial cells LM Ql (Urine sed) MODERATE Abnormal NONE SEEN /RARE [facility] Comment on above: Performed By: #### C VDAGS #### [facility] [address] [place] [address] Dr. Ashlie Hills Glucose Ql (U) Negative Normal NEGATIVE [facility] Comment on above: Performed By: #### C VDAGS #### [facility] [address] [place] [address] Dr. Ashlie Hills Hemoglobin Ql (U) TRACE-INTACT Abnormal NEGATIVE [facility] Comment on above: Performed By: #### C VDAGS #### [facility] [address] [place] [address] Dr. Ashlie Hills Ketones Ql (U) Negative Normal NEGATIVE [facility] Comment on above: Performed By: #### C VDAGS #### [facility] [address] [place] [address] Dr. Ashlie Hills LEUKOCYTES Negative Normal NEGATIVE [facility] Comment on above: Performed By: #### C VDAGS #### [facility] [address] [place] [address] Dr. Ashlie Hills MUCOUS NONE SEEN Normal NONE SEEN [facility] Comment on above: Performed By: #### C VDAGS #### [facility] [address] [place] [address] Dr. Ashlie Hills Nitrite Ql (U) Negative Normal NEGATIVE [facility] Comment on above: Performed By: #### C VDAGS #### [facility] [address] [place] [address] Dr. Ashlie Hills pH (U) 5.0 [pH] Normal 5-9 [facility] Comment on above: Performed By: #### C VDAGS #### [facility] [address] [place] [address] Dr. Ashlie Hills RBC 0-2 Normal 0-2 [facility] Comment on above: Performed By: #### C VDAGS #### [facility] [address] [place] [address] Dr. Ashlie Hills SPEC GRAVITY 1.030 Abnormal 1.005-<=1.025 [facility] Comment on above: Performed By: #### C VDAGS #### [facility] [address] [place] [address] Dr. Ashlie Hills UA PROTEIN 100 mg/dl Abnormal NEGATIVE/ TRACE [facility] Comment on above: Performed By: #### C VDAGS #### [facility] [address] [place] [address] Dr. Ashlie Hills Urobilinogen Qn (U) 0.2 {Little'U}/dL Normal 0.2 - 1. 0 [facility] Comment on above: Performed By: #### C VDAGS #### [facility] [address] [place] [address] Dr. Ashlie Hills WBC NONE SEEN Normal NONE SEEN [facility] Comment on above: Performed By: #### C VDAGS #### [facility] [address] [place] [address] Dr. Ashlie Hills CBC AUTO DIFFon 11-22-2022 BASO # 0.0 103/ul Normal 0.0-0.1 [facility] Comment on above: Performed By: #### C BC #### [facility] [address] [place] [address] Dr. Ashlie Hills Basophils/100 WBC (Bld) 0.3 % Normal 0.2-2.0 [facility] Comment on above: Performed By: #### C BC #### [facility] [address] [place] [address] Dr. Ashlie Hills EO # 0.4 103/ul Normal 0.0-0.7 [facility] Comment on above: Performed By: #### C BC #### [facility] [address] [place] [address] Dr. Ashlie Hills Eosinophils/100 WBC (Bld) 3.0 % Normal 0.9-7.0 [facility] Comment on above: Performed By: #### C BC #### [facility] [address] [place] [address] Dr. Ashlie Hills Erythrocyte distribution width (RBC) [Ratio] 15.3 % Critically high 11.0-15.0 [facility] Comment on above: Performed By: #### C BC #### [facility] [address] [place] [address] Dr. Ashlie Hills Hematocrit (Bld) [Volume fraction] 52.4 % Critically high 36.0-48.0 [facility] Comment on above: Performed By: #### C BC #### [facility] [address] [place] [address] Dr. Ashlie Hills Hemoglobin (Bld) [Mass/Vol] 16.8 g/dL Critically high 12.0-16.0 [facility] Comment on above: Performed By: #### C BC #### [facility] [address] [place] [address] Dr. Ashlie Hills IG # 0.04 10e3/ul Critically high 0.00-0.03 [facility] Comment on above: Performed By: #### C BC #### [facility] [address] [place] [address] Dr. Ashlie Hills IG % 0.3 % Normal 0.0-0.5 [facility] Comment on above: Performed By: #### C BC #### [facility] [address] [place] [address] Dr. Ashlie Hills LYMPH # 4.5 103/ul Critically high 1.2-3.8 [facility] Comment on above: Performed By: #### C BC #### [facility] [address] [place] [address] Dr. Ashlie Hills Lymphocytes/100 WBC (Bld) 33.2 % Normal 20.5-60.0 [facility] Comment on above: Performed By: #### C BC #### [facility] [address] [place] [address] Dr. Ashlie Hills MANUAL DIFF REQ NO Normal [facility] Comment on above: Performed By: #### C BC #### [facility] [address] [place] [address] Dr. Ashlie Hills MCH (RBC) [Entitic mass] 28.0 pg Normal 26.7-34.0 [facility] Comment on above: Performed By: #### C BC #### [facility] [address] [place] [address] Dr. Ashlie Hills MCHC (RBC) [Mass/Vol] 32.1 g/dL Normal 29.9-35.2 [facility] Comment on above: Performed By: #### C BC #### [facility] [address] [place] [address] Dr. Ashlie Hills MCV (RBC) [Entitic vol] 87.3 fL Normal 81.0-99.0 [facility] Comment on above: Performed By: #### C BC #### [facility] [address] [place] [address] Dr. Ashlie Hills MONO # 0.8 103/ul Normal 0.3-0.8 [facility] Comment on above: Performed By: #### C BC #### [facility] [address] [place] [address] Dr. Ashlie Hills Monocytes/100 WBC (Bld) 5.7 % Normal 1.7-12.0 [facility] Comment on above: Performed By: #### C BC #### [facility] [address] [place] [address] Dr. Ashlie Hills NEUT # 7.8 103/ul Critically high 1.4-6.5 [facility] Comment on above: Performed By: #### C BC #### [facility] [address] [place] [address] Dr. Ashlie Hills Neutrophils/100 WBC (Bld) 57.5 % Normal 43.0-75.0 [facility] Comment on above: Performed By: #### C BC #### [facility] [address] [place] [address] Dr. Ashlie Hills Platelet mean volume (Bld) [Entitic vol] 12.0 fL Normal 9.5-13.5 [facility] Comment on above: Performed By: #### C BC #### [facility] [address] [place] [address] Dr. Ashlie Hills PLT 152 103/ul Normal 150-450 [facility] Comment on above: Performed By: #### C BC #### [facility] [address] [place] [address] Dr. Ashlie Hills RBC 6.00 106/ul Critically high 4.20-5.40 [facility] Comment on above: Performed By: #### C BC #### [facility] [address] [place] [address] Dr. Ashlie Hills WBC 13.6 103/ul Critically high 4.0-11.0 [facility] Comment on above: Performed By: #### C BC #### [facility] [address] [place] [address] Dr. Ashlie Hills LIPID PROFILEon 11-22-2022 CHOL-HDL RATIO NORM SEE BELOW Normal [facility] Comment on above: Result Comment: 3.3 - 4.4 LOW RISK 4.4 - 7.1 AVERAGE RISK 7.1 - 11.0 MODERATE RISK >11.0 HIGH RISK Performed By: #### C BC #### [facility] [address] [place] [address] Dr. Ashlie Hills Cholesterol [Mass/Vol] 139 mg/dL Normal <=200 Th [facility] Comment on above: Performed By: #### C BC #### [facility] [address] [place] [address] Dr. Ashlie Hills Cholesterol in HDL [Mass/Vol] 35 mg/dL Critically low 40-60 [facility] Comment on above: Performed By: #### C BC #### [facility] [address] [address] [address] Ashlie Hills Cholesterol in LDL [Mass/Vol] 67.4 mg/dL Normal [facility] Comment on above: Performed By: #### C BC #### [facility] [address] [address] [address] Ashlie Hills Cholesterol.total/Chol esterol in HDL [Mass ratio] 4.0 {ratio} Normal [facility] Comment on above: Performed By: #### C BC #### [facility] [address] [place] [address] Dr. Ashlie Hills HDL NORMAL > or = 60 mg/dl - LOW CARDIOVASCULAR RISK <40 mg/dl - HIGH CARDIOVASCULAR RISK Normal [facility] Comment on above: Performed By: #### C BC #### [facility] [address] [place] [address] Dr. Ashlie Hills LDL CALC NORMAL SEE BELOW Normal [facility] Comment on above: Result Comment: <100 mg/dl OPTIMAL 100 - 129 mg/dl NEAR OR ABOVE OPTIMAL 130 - 159 mg/dl BORDERLINE HIGH 160 - 189 mg/dl HIGH >190 mg/dl VERY HIGH Performed By: #### C BC #### [facility] [address] [place] [address] Dr. Ashlie Hills Triglyceride [Mass/Vol] 183 mg/dL Critically high <=150 [facility] Comment on above: Performed By: #### C BC #### [facility] [address] [place] [address] Dr. Ashlie Hills VLDL CALC 36.6 mg/dL Normal [facility] Comment on above: Performed By: #### C BC #### [facility] [address] [place] [address] Dr. Ashlie Hills MG MAMM SCREEN 3D ALEX CADon 11-22-2022 MG MAMM SCREEN 3D ALEX CAD Patient: MITZI MACIAS Exam Date: 11/22/2022 : 1970 Gender:F Ordering : SAYDA [employer] Admission #: [id number] Family : Order #: [id number] CLICK HERE TO VIEW EXAM RADIOLOGY REPORT [...] cancer at age 75. LOCATION: [facility] BREAST COMPOSITION: Almost entirely fatty. FINDINGS: [...] Veloz M.D. on 11/22/2022 at 12:09 Normal [facility] PROF 14(COMP METB)on 023 Albumin [Mass/Vol] 3.0 g/dL Critically low 3.4-5.0 [facility] Comment on above: Performed By: #### C BC #### [facility] [address] [place], [place] [address] Dr. Ashlie Hills Albumin/Globulin [Mass ratio] 0.6 {ratio} Normal [facility] Comment on above: Performed By: #### C BC #### [facility] [address] [place], [place] [address] Dr. Ashlie Hills ALP [Catalytic activity/Vol] 68 U/L Normal 46-116 [facility] Comment on above: Performed By: #### C BC #### [facility] [address] [address] [address] Ashlie Hills ALT [Catalytic activity/Vol] 14 U/L Normal 14-59 [facility] Comment on above: Performed By: #### C BC #### [facility] [address] [address] [address] Ashlie Hills Anion gap [Moles/Vol] 12.1 mmol/L Normal Th [facility] Comment on above: Performed By: #### C BC #### [facility] [address] [address] [address] Ashlie Hills AST [Catalytic activity/Vol] 9 U/L Critically low 15-37 [facility] Comment on above: Performed By: #### C BC #### [facility] [address] [place] [address] Dr. Ashlie Hills Bilirubin [Mass/Vol] 0.4 mg/dL Normal 0.2-1.0 [facility] Comment on above: Performed By: #### C BC #### [facility] [address] [place] [address] Dr. Ashlie Hills Calcium [Mass/Vol] 9.0 mg/dL Normal 8.5-10.1 [facility] Comment on above: Performed By: #### C BC #### [facility] [address] [place] [address] Dr. Ashlie Hills Chloride [Moles/Vol] 105 mmol/L Normal 98-107 [facility] Comment on above: Performed By: #### C BC #### [facility] [address] [place] [address] Dr. Ashlie Hills CO2 [Moles/Vol] 30.7 mmol/L Normal 21.0-32.0 [facility] Comment on above: Performed By: #### C BC #### [facility] [address] [place] [address] Dr. Ashlie Hills Creatinine [Mass/Vol] 0.77 mg/dL Normal 0.55-1.02 [facility] Comment on above: Performed By: #### C BC #### [facility] [address] [address] [address] Ashlie Hills EGFR-AF ANGUILLAN >60 Normal >=60 [facility] Comment on above: Performed By: #### C BC #### [facility] [address] [id number] [address] Ashlie Hills EGFR-NON AF ANGUILLAN >60 Normal >=60 [facility] Comment on above: Performed By: #### C BC #### [facility] [address] [address] [address] Ashlie Hills Globulin (S) [Mass/Vol] 4.8 g/dL Normal [facility] Comment on above: Performed By: #### C BC #### [facility] [address] [address] [address] Ashlie Hills Glucose [Mass/Vol] 162 mg/dL Critically high 74-106 T [facility] Comment on above: Performed By: #### C BC #### [facility] [address] [place] [address] Dr. Ashlie Hills Potassium [Moles/Vol] 3.8 mmol/L Normal 3.5-5.1 [facility] Comment on above: Performed By: #### C BC #### [facility] [address] [place] [address] Dr. Ashlie Hills Protein [Mass/Vol] 7.8 g/dL Normal 6.4-8.2 [facility] Comment on above: Performed By: #### C BC #### [facility] [address] [address] [address] Ashlie Hills Sodium [Moles/Vol] 144 mmol/L Normal 136-145 [facility] Comment on above: Performed By: #### C BC #### [facility] [address] [place] [address] Dr. Ashlie Hills Urea nitrogen [Mass/Vol] 24.0 mg/dL Critically high 7.0-18.0 [facility] Comment on above: Performed By: #### C BC #### [facility] [address] [place] [address] Dr. Ashlie Hills Urea nitrogen/Creatinine [Mass ratio] 31.2 mg/mg Normal [facility] Comment on above: Performed By: #### C BC #### [facility] [address] [place] [address] Dr. Ashlie Hills CBC AUTO DIFFon 10-05-2022 BASO # 0.1 103/ul Normal 0.0-0.1 [facility] Comment on above: Performed By: #### C BC #### [facility] [address] [place] [address] Dr. Ashlie Hills Basophils/100 WBC (Bld) 0.6 % Normal 0.2-2.0 [facility] Comment on above: Performed By: #### C BC #### [facility] [address] [place] [address] Dr. Ashlie Hills EO # 0.3 103/ul Normal 0.0-0.7 [facility] Comment on above: Performed By: #### C BC #### [facility] [address] [place] [address] Dr. Ashlie Hills Eosinophils/100 WBC (Bld) 2.1 % Normal 0.9-7.0 [facility] Comment on above: Performed By: #### C BC #### [facility] [address] [place] [address] Dr. Ashlie Hills Erythrocyte distribution width (RBC) [Ratio] 15.9 % Critically high 11.0-15.0 [facility] Comment on above: Performed By: #### C BC #### [facility] [address] [place] [address] Dr. Ashlie Hills Hematocrit (Bld) [Volume fraction] 51.8 % Critically high 36.0-48.0 [facility] Comment on above: Performed By: #### C BC #### [facility] [address] [place] [address] Dr. Ashlie Hills Hemoglobin (Bld) [Mass/Vol] 16.6 g/dL Critically high 12.0-16.0 [facility] Comment on above: Performed By: #### C BC #### [facility] [address] [place] [address] Dr. Ashlie Hills IG # 0.03 10e3/ul Normal 0.00-0.03 [facility] Comment on above: Performed By: #### C BC #### [facility] [address] [place] [address] Dr. Ashlie Hills IG % 0.2 % Normal 0.0-0.5 [facility] Comment on above: Performed By: #### C BC #### [facility] [address] [place] [address] Dr. Ashlie Hills LYMPH # 3.9 103/ul Critically high 1.2-3.8 [facility] Comment on above: Performed By: #### C BC #### [facility] [address] [place] [address] Dr. Ashlie Hills Lymphocytes/100 WBC (Bld) 31.7 % Normal 20.5-60.0 [facility] Comment on above: Performed By: #### C BC #### [facility] [address] [place] [address] Dr. Ashlie Hills MANUAL DIFF REQ NO Normal [facility] Comment on above: Performed By: #### C BC #### [facility] [address] [place] [address] Dr. Ashlie Hills MCH (RBC) [Entitic mass] 27.9 pg Normal 26.7-34.0 [facility] Comment on above: Performed By: #### C BC #### [facility] [address] [place] [address] Dr. Ashlie Hills MCHC (RBC) [Mass/Vol] 32.0 g/dL Normal 29.9-35.2 [facility] Comment on above: Performed By: #### C BC #### [facility] [address] [place] [address] Dr. Ashlie Hills MCV (RBC) [Entitic vol] 87.1 fL Normal 81.0-99.0 [facility] Comment on above: Performed By: #### C BC #### [facility] [address] [place] [address] Dr. Ashlie Hills MONO # 0.7 103/ul Normal 0.3-0.8 [facility] Comment on above: Performed By: #### C BC #### [facility] [address] [place] [address] Dr. Ashlie Hills Monocytes/100 WBC (Bld) 5.8 % Normal 1.7-12.0 [facility] Comment on above: Performed By: #### C BC #### [facility] [address] [place] [address] Dr. Ashlie Hills NEUT # 7.3 103/ul Critically high 1.4-6.5 [facility] Comment on above: Performed By: #### C BC #### [facility] [address] [place] [address] Dr. Ashlie Hills Neutrophils/100 WBC (Bld) 59.6 % Normal 43.0-75.0 [facility] Comment on above: Performed By: #### C BC #### [facility] [address] [place] [address] Dr. Ashlie Hills Platelet mean volume (Bld) [Entitic vol] 11.7 fL Normal 9.5-13.5 [facility] Comment on above: Performed By: #### C BC #### [facility] [address] [place] [address] Dr. Ashlie Hills PLT 117 103/ul Critically low 150-450 [facility] Comment on above: Performed By: #### C BC #### [facility] [address] [place] [address] Dr. Ashlie Hills RBC 5.95 106/ul Critically high 4.20-5.40 [facility] Comment on above: Performed By: #### C BC #### [facility] [address] [place] [address] Dr. Ashlie Hills WBC 12.3 103/ul Critically high 4.0-11.0 [facility] Comment on above: Performed By: #### C BC #### [facility] [address] [place] [address] ABD/PELV W CONon [...] PICKARD Date: 2022-10-05 13:13 Normal [facility] ER URINE PROFILEon 3 Bilirubin Ql (U) Negative Normal NEGATIVE [facility] Comment on above: Performed By: #### P OCGLUC #### [facility] [address] [place] [address] Dr. Ashlie Hills Clarity (U) CLEAR Normal CLEAR [facility] Comment on above: Performed By: #### P OCGLUC #### [facility] [address] [place] [address] Dr. Ashlie Hills Color (U) YELLOW Normal YELLOW [facility] Comment on above: Performed By: #### P OCGLUC #### [facility] [address] [place] [address] Dr. Ashlie Hills ERUADE A micrscopic examination will be performed if indicated. Normal [facility] Comment on above: Performed By: #### P OCGLUC #### [facility] [address] [place] [address] Dr. Ashlie Hills Glucose Ql (U) Negative Normal NEGATIVE [facility] Comment on above: Performed By: #### P OCGLUC #### [facility] [address] [address] [address] Ashlie Hills Hemoglobin Ql (U) Negative Normal NEGATIVE [facility] Comment on above: Performed By: #### P OCGLUC #### [facility] [address] [address] [address] Ashlie Hills Ketones Ql (U) Negative Normal NEGATIVE [facility] Comment on above: Performed By: #### P OCGLUC #### [facility] [address] [address] [address] Ashlie Hills LEUKOCYTES Negative Normal NEGATIVE [facility] Comment on above: Performed By: #### P OCGLUC #### [facility] [address] [place] [address] Dr. Ashlie Hills Nitrite Ql (U) Negative Normal NEGATIVE [facility] Comment on above: Performed By: #### P OCGLUC #### [facility] [address] [place] [address] Dr. Ashlie Hills pH (U) 6.0 [pH] Normal 5-9 [facility] Comment on above: Performed By: #### P OCGLUC #### [facility] [address] [address] [address] Ashlie Hills Protein (U) [Mass/Vol] 100 mg/dL Abnormal NEGAT YURY/ TRACE [facility] Comment on above: Performed By: #### P OCGLUC #### [facility] [address] [address] [address] Ashlie Hills SPEC GRAVITY 1.010 Normal 1.005-<=1.025 [facility] Comment on above: Performed By: #### P OCGLUC #### [facility] [address] [place] [address] Dr. Ashlie Hills UR MICRO IND INDICATED Normal [facility] Comment on above: Performed By: #### P OCGLUC #### [facility] [address] [place] [address] Dr. Ashlie Hills Urobilinogen Qn (U) 1.0 {Little'U}/dL Normal 0.2 - 1. 0 [facility] Comment on above: Performed By: #### P OCGLUC #### [facility] [address] [place] [address] Dr. Ashlie Hills LIPASEon 10-05-2022 Lipase [Catalytic activity/Vol] 1771.0 U/L Critically high 73.0-393.0 [facility] Comment on above: Performed By: #### C BC #### [facility] [address] [place] [address] Dr. Ashlie Hills PREG HCG QUALon 10-05-2022 , QUAL Negative Normal NEGATIVE [facility] Comment on above: Performed By: #### P OCGLUC #### [facility] [address] [place] [address] Dr. Ashlie Hills PROF 14(COMP METB)on 023 Albumin [Mass/Vol] 3.2 g/dL Critically low 3.4-5.0 [facility] Comment on above: Performed By: #### C BC #### [facility] [address] [place] [address] Dr. Ashlie Hills Albumin/Globulin [Mass ratio] 0.7 {ratio} Normal [facility] Comment on above: Performed By: #### C BC #### [facility] [address] [place] [address] Dr. Ashlie Hills ALP [Catalytic activity/Vol] 70 U/L Normal 46-116 [facility] Comment on above: Performed By: #### C BC #### [facility] [address] [place] [address] Dr. Ashlie Hills ALT [Catalytic activity/Vol] 11 U/L Critically low 14-59 [facility] Comment on above: Performed By: #### C BC #### [facility] [address] [place] [address] Dr. Ashlie Hills Anion gap [Moles/Vol] 10.3 mmol/L Normal [facility] Comment on above: Performed By: #### C BC #### [facility] [address] [place] [address] Dr. Ashlie Hills AST [Catalytic activity/Vol] 11 U/L Critically low 15-37 [facility] Comment on above: Performed By: #### C BC #### [facility] [address] [address] [address] Ashlie Hills Bilirubin [Mass/Vol] 0.9 mg/dL Normal 0.2-1.0 [facility] Comment on above: Performed By: #### C BC #### [facility] [address] [address] [address] Ashlie Hills Calcium [Mass/Vol] 9.3 mg/dL Normal 8.5-10.1 [facility] Comment on above: Performed By: #### C BC #### [facility] [address] [address] [address] Ashlie Hills Chloride [Moles/Vol] 105 mmol/L Normal 98-107 [facility] Comment on above: Performed By: #### C BC #### [facility] [address] [address] [address] Ashlie Hills CO2 [Moles/Vol] 30.6 mmol/L Normal 21.0-32.0 [facility] Comment on above: Performed By: #### C BC #### [facility] [address] [address] [address] Ashlie Hills Creatinine [Mass/Vol] 0.62 mg/dL Normal 0.55-1.02 [facility] Comment on above: Performed By: #### C BC #### [facility] [address] [address] [address] Ashlie Hills EGFR-AF ANGUILLAN >60 Normal >=60 [facility] Comment on above: Performed By: #### C BC #### [facility] [address] [address] [address] Ashlie Hills EGFR-NON AF ANGUILLAN >60 Normal >=60 [facility] Comment on above: Performed By: #### C BC #### [facility] [address] [address] [address] Ashlie Hills Globulin (S) [Mass/Vol] 4.6 g/dL Normal [facility] Comment on above: Performed By: #### C BC #### [facility] [address] [address] [address] Ashlie Hills Glucose [Mass/Vol] 85 mg/dL Normal 74-106 [facility] Comment on above: Performed By: #### C BC #### [facility] [address] [address] [address] Ashlie Hills Potassium [Moles/Vol] 3.9 mmol/L Normal 3.5-5.1 [facility] Comment on above: Performed By: #### C BC #### [facility] [address] [address] [address] Ashlie Hills Protein [Mass/Vol] 7.8 g/dL Normal 6.4-8.2 [facility] Comment on above: Performed By: #### C BC #### [facility] [address] [address] [address] Ashlie Hills Sodium [Moles/Vol] 142 mmol/L Normal 136-145 [facility] Comment on above: Performed By: #### C BC #### [facility] [address] [address] [address] Ashlie Hills Urea nitrogen [Mass/Vol] 12.0 mg/dL Normal 7.0-18.0 [facility] Comment on above: Performed By: #### C BC #### [facility] [address] [address] [address] Ashlie Hills Urea nitrogen/Creatinine [Mass ratio] 19.4 mg/mg Normal [facility] Comment on above: Performed By: #### C BC #### [facility] [address] [address] [address] Ashlie Hills URINE MICROSCOPIC ONLYon BACTERIA TRACE Abnormal NONE SEEN [facility] Comment on above: Performed By: #### P OCGLUC #### [facility] [address] [address] [address] Ashlie Hills Bacteria identified Cx Nom (U) NOT INDICATED Normal [facility] Comment on above: Performed By: #### P OCGLUC #### [facility] [address] [place] [address] Dr. Ashlie Hills CAST NONE SEEN Normal NONE SEEN [facility] Comment on above: Performed By: #### P OCGLUC #### [facility] [address] [place] [address] Dr. Ashlie Hills Crystals LM Nom (Urine sed) NONE SEEN Normal NONE SEEN [facility] Comment on above: Performed By: #### P OCGLUC #### [facility] [address] [place] [address] Dr. Ashlie Hills Epithelial cells LM Ql (Urine sed) MODERATE Abnormal NONE SEEN /RARE [facility] Comment on above: Performed By: #### P OCGLUC #### [facility] [address] [place] [address] Dr. Ashlie Hills MUCOUS NONE SEEN Normal NONE SEEN [facility] Comment on above: Performed By: #### P OCGLUC #### [facility] [address] [place] [address] Dr. Ashlie Hills RBC 0-2 Normal 0-2 [facility] Comment on above: Performed By: #### P OCGLUC #### [facility] [address] [place] [address] Dr. Ashlie Hills WBC 0-2 Abnormal NONE SEEN [facility] Comment on above: Performed By: #### P OCGLUC #### [facility] [address] [place] [address] Dr. Ashlie Hills Cov[facility]19 PCR [facility]on 09[facility]06 SARS-CoV-2 (COVID-19) RNA MADDY+probe Ql (Unsp spec) Detected Abnormal NOT DETECTED [facility] Comment on above: Result Comment: This test is not yet approved or cleared by the [place] FDA. When there are no FDA-approved or cleared tests available, and other criteria are met, FDA can make tests available under an emergency access mechanism called an Emergency Use Authorization (EUA). The EUA for this test is supported by the Education And Development Manager of Health and Human Service's declaration [...] Performed By: #### C VDAGS #### [facility] [address] [place] [address] Dr. Ashlie Hills INFLUENZA A AND B AGon 09-21 [facility] SEE BELOW Normal [facility] Comment on above: Result Comment: Nega tive for Flu A protein angiten. Infection due to Flu A cannot be ruled out. Flu A angiten in the sample may be below the detection limit of the test. Performed By: #### I NFLUAB #### [facility] [address] [place] [address] Dr. Ashlie [facility] Normal [facility] Comment on above: Result Comment: Nega tive for Flu B protein antigen. Infection due to Flu B cannot be ruled out. Flu B antigen in the sample may be below the detection limit of the test. Performed By: #### I NFLUAB #### [facility] [address] [place] [address] Dr. Ashlie Hills INFLUENZA A AG Negative Normal NEGATIVE SEE COMMENT [facility] Comment on above: Performed By: #### I NFLUAB #### [facility] [address] [place] [address] Dr. Ashlie Hills INFLUENZA B AG Negative Normal NEGATIVE SEE COMMENT [facility] Comment on above: Performed By: #### I NFLUAB #### [facility] [address] [place] [address] ABD/PELV W CONon [...] to at least 10/21/2018, unchanged. https://www.ncbi.nlm .nih.gov/pmc/article s/[id number]/ Electronically authenticated by: COLLIN HUERTAS Date: 2022-07-27 14:56 Normal [facility] CREATININEon 07-18-2022 Creatinine [Mass/Vol] 0.81 mg/dL Normal 0.55-1.02 [facility] Comment on above: Performed By: #### C BC #### [facility] [address] [place] [address] Dr. Ashlie Hills EGFR-AF ANGUILLAN >60 Normal >=60 [facility] Comment on above: Performed By: #### C BC #### [facility] [address] [place] [address] Dr. Ashlie Hills EGFR-NON AF ANGUILLAN >60 Normal >=60 [facility] Comment on above: Performed By: #### C BC #### [facility] [address] [place] [address] LOW EXT W [...] VELOZ Date: 2022-07-18 14:58 Normal [facility] XR KNEE LT 1_2 Von 3 [...] BAUTISTA Date: 2022-07-18 12:00 Normal [facility] Covid-19 PCR ([facility])on 06-09 SARS-CoV-2 (COVID-19) RNA MADDY+probe Ql (Unsp spec) Not detected Normal NOT DETECTED [facility] Comment on above: Result Comment: This test is not yet approved or cleared by the [place] FDA. When there are no FDA-approved or cleared tests available, and other criteria are met, FDA can make tests available under an emergency access mechanism called an Emergency Use Authorization (EUA). The EUA for this test is supported by the Education And Development Manager of Health and Human Service's (HHS's) [...] Performed By: #### C BC #### [facility] [address] [place] [address] Dr. Ashlie Hills INFLUENZA A AND B AGon 07-06 [facility] SEE BELOW Normal [facility] Comment on above: Result Comment: Nega tive for Flu A protein angiten. Infection due to Flu A cannot be ruled out. Flu A angiten in the sample may be below the detection limit of the test. Performed By: #### C BC #### [facility] [address] [place] [address] Dr. Ashlie Hills INFLUBNEGH SEE BELOW Normal [facility] Comment on above: Result Comment: Nega tive for Flu B protein antigen. Infection due to Flu B cannot be ruled out. Flu B antigen in the sample may be below the detection limit of the test. Performed By: #### C BC #### [facility] [address] [place] [address] Dr. Ashlie Hills INFLUENZA A AG Negative Normal NEGATIVE SEE COMMENT [facility] Comment on above: Performed By: #### C BC #### [facility] [address] [place] [address] Dr. Ashlie Hills INFLUENZA B AG Negative Normal NEGATIVE SEE COMMENT [facility] Comment on above: Performed By: #### C BC #### [facility] [address] [place] [address] Dr. Ashlie Hills POINT OF CARE GLUCOSEon 04-08 Glucose [Mass/Vol] 108 mg/dL Critically high 74-106 [facility] Comment on above: Performed By: #### C BC #### [facility] [address] [place] [address] Dr. Ashlie Hills RAGHU by IFAon 03-07-2022 Antinuclear Antibodies, IFA Negative Normal [facility] Comment on above: Result Comment: Nega tive <1:80 Borderline 1:80 Positive >1:80 ICAP nomenclature: AC-0 For more information about Hep-2 cell patterns use ANApatterns.org, the official website for the International Consensus on Antinuclear Antibody (RAGHU) Patterns (ICAP). Performed By: #### A NAIFA #### [facility] [address] [place] [address] Dr. Ashlie Hills IMMUNOFIXATION (TREVON), URINEo n 03-07-2022 TREVON Interpretation:U Comment Normal [facility] Comment on above: Result Comment: No m onoclonality detected. Performed By: #### C BC #### [facility] [address] [place] [address] Dr. Ashlie iHlls IMMUNOFIXATION(TREVON),PROTEIN ELEC(PE),FREon 03-07-2022 Albumin [Mass/Vol] 3.0 g/dL Normal 2.9-4.4 [facility] Comment on above: Performed By: #### I NFLUAB #### [facility] [address] [place] [address] Dr. Ashlie Hills Albumin/Globulin [Mass ratio] 0.8 {ratio} Normal 0.7-1.7 [facility] Comment on above: Performed By: #### I NFLUAB #### [facility] [address] [place] [address] Dr. Ashlie Hills Suyfa-5-Yzdqzjcw 0.3 g/dL Normal 0.0-0.4 [facility] Comment on above: Performed By: #### I NFLUAB #### [facility] [address] [place] [address] Dr. Ashlie Hills Ccveo-0-Npinukak 1.0 g/dL Normal 0.4-1.0 [facility] Comment on above: Performed By: #### I NFLUAB #### [facility] [address] [place] [address] Dr. Ashlie Hills Beta Globulin 1.8 g/dL Critically high 0.7-1.3 [facility] Comment on above: Performed By: #### I NFLUAB #### [facility] [address] [place] [address] Dr. Ashlie Hills Free [place] Lt Chains,S 45.2 mg/L Critically high 3.3-19.4 [facility] Comment on above: Performed By: #### I NFLUAB #### [facility] [address] [place] [address] Dr. Ashlie Hills Free Lambda Lt Chains,S 40.3 mg/L Critically high 5.7-26.3 [facility] Comment on above: Performed By: #### I NFLUAB #### [facility] [address] [place] [address] Dr. Ashlie Hills Gamma Globulin 0.8 g/dL Normal 0.4-1.8 [facility] Comment on above: Performed By: #### I NFLUAB #### [facility] [address] [place] [address] Dr. Ashlie Hills Globulin (S) [Mass/Vol] 3.9 g/dL Normal 2.2-3.9 [facility] Comment on above: Performed By: #### I NFLUAB #### [facility] [address] [place] [address] Dr. Ashlie Hills Immunofixation Result, Serum Comment Normal [facility] Comment on above: Result Comment: No m onoclonality detected. Performed By: #### I NFLUAB #### [facility] [address] [place] [address] Dr. Ashlie Hills Immunoglobulin A, Qn, Serum 776 mg/dL Critically high 87-352 [facility] Comment on above: Performed By: #### I NFLUAB #### [facility] [address] [place] [address] Dr. Ashlie Hills Immunoglobulin G, Qn, Serum 955 mg/dL Normal 586-1602 [facility] Comment on above: Performed By: #### I NFLUAB #### [facility] [address] [place] [address] Dr. Ashlie Hills Immunoglobulin M, Qn, Serum 39 mg/dL Normal 26-217 [facility] Comment on above: Performed By: #### I NFLUAB #### [facility] [address] [place] [address] Dr. Ashlie Hills [place]/Lambda Ratio, S 1.12 Normal 0.26-1.65 [facility] Comment on above: Performed By: #### I NFLUAB #### [facility] [address] [place] [address] Dr. Ashlie Hills M-Bright Not Observed Normal Not Observed [facility] Comment on above: Performed By: #### I NFLUAB #### [facility] [address] [place] [address] Dr. Ashlie Hills PDF . Normal [facility] Comment on above: Performed By: #### I NFLUAB #### [facility] [address] [place] [address] Dr. Ashlie Hills Please note: Comment Normal [facility] Comment on above: Result Comment: Prot ein electrophoresis scan will follow via computer, mail, or manager orange delivery. Performed By: #### I NFLUAB #### [facility] [address] [place] [address] Dr. Ashlie Hills Protein [Mass/Vol] 6.9 g/dL Normal 6.0-8.5 [facility] Comment on above: Performed By: #### I NFLUAB #### [facility] [address] [place] [address] Dr. Ashlie Hills C-PEPTIDE, SERUMon 2 C-Peptide, Serum 3.1 ng/mL Normal 1.1-4.4 [facility] Comment on above: Result Comment: C-Pe ptide reference interval is for fasting patients. Performed By: #### C PEPT #### [facility] [address] [place] [address] Dr. Ashlie Hills HEP B SURFACE ANTIGEN SCREEN on 03-04-2022 HBsAg Screen Negative Normal Negative [facility] Comment on above: Performed By: #### C BC #### [facility] [address] [place] [address] Dr. Ashlie Hills HEPATITIS C VIRUS AB W/ REFL EX QUANTon 03-04-2022 HCV AB <0.1 Normal 0.0-0.9 [facility] Comment on above: Performed By: #### I NFLUAB #### [facility] [address] [place] [address] Dr. Ashlie Hills Interpretation: Comment Normal [facility] Comment on above: Result Comment: Nega tive Not infected with HCV, unless recent infection is suspected or other evidence exists to indicate HCV infection. Performed By: #### I NFLUAB #### [facility] [address] [address] [address] Ashlie Hills MICROALBUMIN/ CREATININE RAT IOon 03-04-2022 Albumin, Urine 367.4 ug/mL Normal Not Estab. [facility] Comment on above: Performed By: #### C BC #### [facility] [address] [address] [address] Ashlie Hills Albumin/ Creatinine Ratio 239 mg/g creat Critically high 0-29 [facility] Comment on above: Result Comment: Norm al: 0 - 29 Moderately increased: 30 - 300 Severely increased: >300 Performed By: #### C BC #### [facility] [address] [address] [address] Ashlie Hills Creatinine, Urine 153.9 mg/dL Normal Not Estab. [facility] Comment on above: Performed By: #### C BC #### [facility] [address] [address] [address] Ashlie Hills VIT D 25-OH LABCORPon 2021 Vitamin D, 25-Hydroxy <4.0 Critically low 30.0-100.0 [facility] Comment on above: Result Comment: Graciela min D deficiency has been defined by the [place] of [employer] and an Endocrine Society practice guideline as a level of serum 25-OH vitamin D less than 20 ng/mL (1,2). The Endocrine Society went on to further define vitamin D insufficiency as a level between 21 and 29 ng/mL (2). 1. IOM ([place] of [employer]). 2010. Dietary reference intakes for calcium and D. [place]: The National Academies Press. 2. Lynda MF, Keely [place], Leandra LOPEZ, et al. Evaluation, treatment, and prevention of vitamin D deficiency: an Endocrine Society clinical practice guideline. JCEM. 2010; 96(7):1911-30. Performed By: #### C BC #### [facility] [address] [address] [address] Ashlie Hills GLYCOHEMOGLOBIN A1Con 2021 ADA RECOMMENDATION SEE BELOW Normal [facility] Comment on above: Result Comment: ADA RECOMMENDED LIMIT 4.0 - 6.0 ADA THERAPEUTIC TARGET < 7.0 ACTION SUGGESTED > 7.0 Performed By: #### C VDAGS #### [facility] [address] [place] [address] Dr. Ashlie Hills Glucose [Mass/Vol] 295 mg/dL Normal [facility] Comment on above: Performed By: #### C VDAGS #### [facility] [address] [place] [address] Dr. Ashlie Hills HbA1c (Bld) [Mass fraction] 11.9 % Critically high 4.5-6.2 [facility] Comment on above: Performed By: #### C VDAGS #### [facility] [address] [place] [address] Dr. Ashlie Hills HEMOGRAM AND PLATELon 2021 Hematocrit (Bld) [Volume fraction] 56.3 % Critically high 36.0-48.0 [facility] Comment on above: Performed By: #### C VDAGS #### [facility] [address] [place] [address] Dr. Ashlie Hills Hemoglobin (Bld) [Mass/Vol] 18.0 g/dL Critically high 12.0-16.0 [facility] Comment on above: Performed By: #### C VDAGS #### [facility] [address] [place] [address] Dr. Ashlie Hills MCH (RBC) [Entitic mass] 29.5 pg Normal 26.7-34.0 [facility] Comment on above: Performed By: #### C VDAGS #### [facility] [address] [place] [address] Dr. Ashlie Hills MCHC (RBC) [Mass/Vol] 32.0 g/dL Normal 29.9-35.2 [facility] Comment on above: Performed By: #### C VDAGS #### [facility] [address] [place] [address] Dr. Ashlie Hills MCV (RBC) [Entitic vol] 92.1 fL Normal 81.0-99.0 [facility] Comment on above: Performed By: #### C VDAGS #### [facility] [address] [address] [address] Ashlie Hills PLT 123 103/ul Critically low 150-450 [facility] Comment on above: Performed By: #### C VDAGS #### [facility] [address] [address] [address] Ashlie Hills RBC 6.11 106/ul Critically high 4.20-5.40 [facility] Comment on above: Performed By: #### C VDAGS #### [facility] [address] [place] [address] Dr. Ashlie Hills WBC 16.4 103/ul Critically high 4.0-11.0 [facility] Comment on above: Performed By: #### C VDAGS #### [facility] [address] [place] [address] Dr. Ashlie Hills LIPID PROFILEon 03-03-2022 CHOL-HDL RATIO NORM SEE BELOW Normal [facility] Comment on above: Result Comment: 3.3 - 4.4 LOW RISK 4.4 - 7.1 AVERAGE RISK 7.1 - 11.0 MODERATE RISK >11.0 HIGH RISK Performed By: #### C VDAGS #### [facility] [address] [place] [address] Dr. Ashlie Hills Cholesterol [Mass/Vol] 159 mg/dL Normal <=200 [facility] Comment on above: Performed By: #### C VDAGS #### [facility] [address] [place] [address] Dr. Ashlie Hills Cholesterol in HDL [Mass/Vol] 40 mg/dL Normal 40-60 [facility] Comment on above: Performed By: #### C VDAGS #### [facility] [address] [place] [address] Dr. Ashlie Hills Cholesterol in LDL [Mass/Vol] 81.8 mg/dL Normal [facility] Comment on above: Performed By: #### C VDAGS #### [facility] [address] [place] [address] Dr. Ashlie Hills Cholesterol.total/Chol esterol in HDL [Mass ratio] 4.0 {ratio} Normal [facility] Comment on above: Performed By: #### C VDAGS #### [facility] [address] [address] [address] Ashlie Hills HDL NORMAL > or = 60 mg/dl - LOW CARDIOVASCULAR RISK <40 mg/dl - HIGH CARDIOVASCULAR RISK Normal [facility] Comment on above: Performed By: #### C VDAGS #### [facility] [address] [address] [address] Ashlie Hills LDL CALC NORMAL SEE BELOW Normal [facility] Comment on above: Result Comment: <100 mg/dl OPTIMAL 100 - 129 mg/dl NEAR OR ABOVE OPTIMAL 130 - 159 mg/dl BORDERLINE HIGH 160 - 189 mg/dl HIGH >190 mg/dl VERY HIGH Performed By: #### C VDAGS #### [facility] [address] [address] [address] Ashlie Hills Triglyceride [Mass/Vol] 186 mg/dL Critically high <=150 [facility] Comment on above: Performed By: #### C VDAGS #### [facility] [address] [address] [address] Ashlie Hills VLDL CALC 37.2 mg/dL Normal [facility] [facility] Comment on above: Performed By: #### C VDAGS #### [facility] [address] [address] [address] Ashlie Hills RENAL FUNCTION PANELon 03-03 Albumin [Mass/Vol] 3.1 g/dL Critically low 3.4-5.0 [facility] Comment on above: Performed By: #### C BC #### [facility] [address] [address] [address] Ashlie Hills Calcium [Mass/Vol] 9.2 mg/dL Normal 8.5-10.1 [facility] Comment on above: Performed By: #### C BC #### [facility] [address] [address] [address] Ashlie Hills Chloride [Moles/Vol] 102 mmol/L Normal 98-107 [facility] Comment on above: Performed By: #### C BC #### [facility] [address] [address] [address] Ashlie Hills CO2 [Moles/Vol] 31.9 mmol/L Normal 21.0-32.0 [facility] Comment on above: Performed By: #### C BC #### [facility] [address] [address] [address] Ashlie Hills Creatinine [Mass/Vol] 0.68 mg/dL Normal 0.55-1.02 [facility] Comment on above: Performed By: #### C BC #### [facility] [address] [address] [address] Ashlie Hills EGFR-AF ANGUILLAN >60 Normal >=60 [facility] Comment on above: Performed By: #### C BC #### [facility] [address] [place] [address] Dr. Ashlie Hills EGFR-NON AF ANGUILLAN >60 Normal >=60 [facility] Comment on above: Performed By: #### C BC #### [facility] [address] [place] [address] Dr. Ashlie Hills Glucose [Mass/Vol] 131 mg/dL Critically high 74-106 [facility] Comment on above: Performed By: #### C BC #### [facility] [address] [place] [address] Dr. Ashlie Hills Phosphate [Mass/Vol] 4.0 mg/dL Normal 2.6-4.7 [facility] Comment on above: Performed By: #### C BC #### [facility] [address] [place] [address] Dr. Ashlie Hills Potassium [Moles/Vol] 4.0 mmol/L Normal 3.5-5.1 [facility] Comment on above: Performed By: #### C BC #### [facility] [address] [place] [address] Dr. Ashlie Hills Sodium [Moles/Vol] 141 mmol/L Normal 136-145 [facility] Comment on above: Performed By: #### C BC #### [facility] [address] [address] [address] Ashlie Hills Urea nitrogen [Mass/Vol] 17.0 mg/dL Normal 7.0-18.0 [facility] Comment on above: Performed By: #### C BC #### [facility] [address] [place] [address] Dr. Ashlie Hills UA RANDOM W/MICROSCOPICon BACTERIA NONE SEEN Normal NONE SEEN [facility] Comment on above: Performed By: #### I NFLUAB #### [facility] [address] [place] [address] Dr. Ashlie Hills Bilirubin Ql (U) Negative Normal NEGATIVE [facility] Comment on above: Performed By: #### I NFLUAB #### [facility] [address] [place] [address] Dr. Ashlie Hills CAST NONE SEEN Normal NONE SEEN [facility] Comment on above: Performed By: #### I NFLUAB #### [facility] [address] [place] [address] Dr. Ashlie Hills Clarity (U) CLEAR Normal CLEAR [facility] Comment on above: Performed By: #### I NFLUAB #### [facility] [address] [place] [address] Dr. Ashlie Hills Color (U) YELLOW Normal YELLOW [facility] Comment on above: Performed By: #### I NFLUAB #### [facility] [address] [place] [address] Dr. Ashlie Hills Crystals LM Nom (Urine sed) NONE SEEN Normal NONE SEEN [facility] Comment on above: Performed By: #### I NFLUAB #### [facility] [address] [place] [address] Dr. Ashlie Hills Epithelial cells LM Ql (Urine sed) FEW Abnormal NONE SEEN /RARE [facility] Comment on above: Performed By: #### I NFLUAB #### [facility] [address] [place] [address] Dr. Ashlie Hills Glucose Ql (U) Negative Normal NEGATIVE [facility] Comment on above: Performed By: #### I NFLUAB #### [facility] [address] [address] [address] Ashlie Hills Hemoglobin Ql (U) Negative Normal NEGATIVE [facility] Comment on above: Performed By: #### I NFLUAB #### [facility] [address] [address] [address] Ashlie Hills Ketones Ql (U) Negative Normal NEGATIVE [facility] Comment on above: Performed By: #### I NFLUAB #### [facility] [address] [address] [address] Ashlie Hills LEUKOCYTES Negative Normal NEGATIVE [facility] Comment on above: Performed By: #### I NFLUAB #### [facility] [address] [place] [address] Dr. Ashlie Hills MUCOUS NONE SEEN Normal NONE SEEN [facility] Comment on above: Performed By: #### I NFLUAB #### [facility] [address] [place] [address] Dr. Ashlie Hills Nitrite Ql (U) Negative Normal NEGATIVE [facility] Comment on above: Performed By: #### I NFLUAB #### [facility] [address] [place] [address] Dr. Ashlie Hills pH (U) 5.5 [pH] Normal 5-9 [facility] Comment on above: Performed By: #### I NFLUAB #### [facility] [address] [place] [address] Dr. Ashlie Hills RBC 0-2 Normal 0-2 [facility] Comment on above: Performed By: #### I NFLUAB #### [facility] [address] [place] [address] Dr. Ashlie Hills SPEC GRAVITY >=1.030 Abnormal 1.005-<=1.025 [facility] Comment on above: Performed By: #### I NFLUAB #### [facility] [address] [place] [address] Dr. Ashlie Hills UA PROTEIN 100 mg/dl Abnormal NEGATIVE/ TRACE [facility] Comment on above: Performed By: #### I NFLUAB #### [facility] [address] [place] [address] Dr. Ashlie Hills Urobilinogen Qn (U) 0.2 {Little'U}/dL Normal 0.2 - 1. 0 [facility] Comment on above: Performed By: #### I NFLUAB #### [facility] [address] [address] [address] Ashlie Hills WBC NONE SEEN Normal NONE SEEN [facility] Comment on above: Performed By: #### I NFLUAB #### [facility] [address] [address] [address] Ashlie Hills URIC ACID SERUMon 03-03-2022 Urate [Mass/Vol] 5.0 mg/dL Normal 2.6-6.0 [facility] Comment on above: Performed By: #### I NFLUAB #### [facility] [address] [place] [address] Dr. Ashlie Hills URINE T PROTEIN CREAT RATIOo n 03-03-2022 Protein (U) [Mass/Vol] 77.9 mg/dL Critically high <=12.0 [facility] Comment on above: Performed By: #### C VDAGS #### [facility] [address] [address] [address] Ashlie Hills UR PROT CREAT RAT 0.44 Normal [facility] Comment on above: Performed By: #### C VDAGS #### [facility] [address] [place] [address] Dr. Ashlie Hills URINE CREAT 175.15 mg/dL Normal 20.00-300.00 [facility] Comment on above: Performed By: #### C VDAGS #### [facility] [address] [place] [address] Dr. Ashlie Hills CULTURE URINEon 12-25-2021 CULTURE URINE Culture Observations: GREATER THAN TWO ORGANISMS PRESENT, HEAVILY MIXED. PLEASE RESUBMIT CLEAN CATCH MID-STREAM URINE IF CLINICALLY INDICATED. Normal [facility] Comment on above: Performed By: #### I NFLUAB #### [facility] [address] [place] [address] Dr. Ashlie Hills CBC AUTO DIFFon 12-24-2021 BASO # 0.1 103/ul Normal 0.0-0.1 [facility] Comment on above: Performed By: #### C BC #### [facility] [address] [place] [address] Dr. Ashlie Hills Basophils/100 WBC (Bld) 0.5 % Normal 0.2-2.0 [facility] Comment on above: Performed By: #### C BC #### [facility] [address] [place] [address] Dr. Ashlie Hills EO # 0.4 103/ul Normal 0.0-0.7 [facility] Comment on above: Performed By: #### C BC #### [facility] [address] [place] [address] Dr. Ashlie Hills Eosinophils/100 WBC (Bld) 2.4 % Normal 0.9-7.0 [facility] Comment on above: Performed By: #### C BC #### [facility] [address] [place] [address] Dr. Ashlie Hills Erythrocyte distribution width (RBC) [Ratio] 14.1 % Normal 11.0-15.0 [facility] Comment on above: Performed By: #### C BC #### [facility] [address] [place] [address] Dr. Ashlie Hills Hematocrit (Bld) [Volume fraction] 55.9 % Critically high 36.0-48.0 [facility] Comment on above: Performed By: #### C BC #### [facility] [address] [place] [address] Dr. Ashlie Hills Hemoglobin (Bld) [Mass/Vol] 17.9 g/dL Critically high 12.0-16.0 [facility] Comment on above: Performed By: #### C BC #### [facility] [address] [place] [address] Dr. Ashlie Hills IG # 0.06 10e3/ul Critically high 0.00-0.03 [facility] Comment on above: Performed By: #### C BC #### [facility] [address] [place] [address] Dr. Ashlie Hills IG % 0.4 % Normal 0.0-0.5 [facility] Comment on above: Performed By: #### C BC #### [facility] [address] [place] [address] Dr. Ashlie Hills LYMPH # 5.8 103/ul Critically high 1.2-3.8 [facility] Comment on above: Performed By: #### C BC #### [facility] [address] [place] [address] Dr. Ashlie Hills Lymphocytes/100 WBC (Bld) 35.4 % Normal 20.5-60.0 [facility] Comment on above: Performed By: #### C BC #### [facility] [address] [place] [address] Dr. Ashlie Hills MANUAL DIFF REQ NO Normal [facility] Comment on above: Performed By: #### C BC #### [facility] [address] [place] [address] Dr. Ashlie Hills MCH (RBC) [Entitic mass] 29.4 pg Normal 26.7-34.0 [facility] Comment on above: Performed By: #### C BC #### [facility] [address] [place] [address] Dr. Ashlie Hills MCHC (RBC) [Mass/Vol] 32.0 g/dL Normal 29.9-35.2 [facility] Comment on above: Performed By: #### C BC #### [facility] [address] [place] [address] Dr. Ashlie Hills MCV (RBC) [Entitic vol] 91.8 fL Normal 81.0-99.0 [facility] Comment on above: Performed By: #### C BC #### [facility] [address] [place] [address] Dr. Ashlie Hills MONO # 0.8 103/ul Normal 0.3-0.8 [facility] Comment on above: Performed By: #### C BC #### [facility] [address] [place] [address] Dr. Ashlie Hills Monocytes/100 WBC (Bld) 4.8 % Normal 1.7-12.0 [facility] Comment on above: Performed By: #### C BC #### [facility] [address] [address] [address] Ashlie Hills NEUT # 9.3 103/ul Critically high 1.4-6.5 [facility] Comment on above: Performed By: #### C BC #### [facility] [address] [address] [address] Ashlie Hills Neutrophils/100 WBC (Bld) 56.5 % Normal 43.0-75.0 [facility] Comment on above: Performed By: #### C BC #### [facility] [address] [address] [address] Ashlie Hills Platelet mean volume (Bld) [Entitic vol] 12.9 fL Normal 9.5-13.5 [facility] Comment on above: Performed By: #### C BC #### [facility] [address] [address] [address] Ashlie Hills PLT 127 103/ul Critically low 150-450 [facility] Comment on above: Performed By: #### C BC #### [facility] [address] [address] [address] Ashlie Hills RBC 6.09 106/ul Critically high 4.20-5.40 [facility] Comment on above: Performed By: #### C BC #### [facility] [address] [place] [address] Dr. Ashlie Hills WBC 16.4 103/ul Critically high 4.0-11.0 [facility] Comment on above: Performed By: #### C BC #### [facility] [address] [place] [address] ABD/PELVIS WO CONon [...] right hip degenerative change. Normal [facility] URINE PROFILEon 2 Bilirubin Ql (U) Negative Normal NEGATIVE [facility] Comment on above: Performed By: #### E RUR, UMICRO #### [facility] [address] [place] [address] Dr. Ashlie Hills Clarity (U) CLEAR Normal CLEAR [facility] Comment on above: Performed By: #### E RUR, UMICRO #### [facility] [address] [place] [address] Dr. Ashlie Hills Color (U) DK. ORANGE Abnormal YELLOW [facility] Comment on above: Performed By: #### E RUR, UMICRO #### [facility] [address] [place] [address] Dr. Ashlie HOBBS A micrscopic examination will be performed if indicated. Normal [facility] Comment on above: Performed By: #### E RUR, UMICRO #### [facility] [address] [place] [address] Dr. Ashlie Hills Glucose Ql (U) 250 mg/dl Abnormal NEGATIVE [facility] Comment on above: Performed By: #### E RUR, UMICRO #### [facility] [address] [place] [address] Dr. Ashlie Hills Hemoglobin Ql (U) Negative Normal NEGATIVE [facility] Comment on above: Performed By: #### E RUR, UMICRO #### [facility] [address] [place] [address] Dr. Ashlie Hills Ketones Ql (U) Negative Normal NEGATIVE [facility] Comment on above: Performed By: #### E RUR, UMICRO #### [facility] [address] [place] [address] Dr. Ashlie Hills LEUKOCYTES Negative Normal NEGATIVE [facility] Comment on above: Performed By: #### E RUR, UMICRO #### [facility] [address] [place] [address] Dr. Ashlie Hills Nitrite Ql (U) Negative Normal NEGATIVE [facility] Comment on above: Performed By: #### E RUR, UMICRO #### [facility] [address] [place] [address] Dr. Ashlie Hills pH (U) 5.0 [pH] Normal 5-9 [facility] Comment on above: Performed By: #### MADELINE DIAZRO #### [facility] [address] [place] [address] Dr. Ashlie Hills Protein (U) [Mass/Vol] 100 mg/dL Abnormal NEGAT YURY/ TRACE [facility] Comment on above: Performed By: #### Tracey LYMAN, UMICRO #### [facility] [address] [place] [address] Dr. Ashlie Hills SPEC GRAVITY >=1.030 Abnormal 1.005-<=1.025 [facility] Comment on above: Performed By: #### Tracey LYMAN, MADELINERO #### [facility] [address] [place] [address] Dr. Ashlie Hills UR MICRO IND INDICATED Normal [facility] Comment on above: Performed By: #### Tracey LYMAN UMHARRIETRO #### [facility] [address] [place] [address] Dr. Ashlie Hills Urobilinogen Qn (U) 1.0 {Little'U}/dL Normal 0.2 - 1. 0 [facility] Comment on above: Performed By: #### Tracey LYMAN, MADELINERO #### [facility] [address] [place] [address] Dr. Ashlie Hills PROF CHEM 8 (BAS METB)on Anion gap [Moles/Vol] 12.1 mmol/L Normal [facility] Comment on above: Performed By: #### I NFLUAB #### [facility] [address] [place] [address] Dr. Ashlie Hills Calcium [Mass/Vol] 9.0 mg/dL Normal 8.5-10.1 [facility] Comment on above: Performed By: #### I NFLUAB #### [facility] [address] [place] [address] Dr. Ashlie Hills Chloride [Moles/Vol] 101 mmol/L Normal 98-107 [facility] Comment on above: Performed By: #### I NFLUAB #### [facility] [address] [address] [address] Ashlie Hills CO2 [Moles/Vol] 29.1 mmol/L Normal 21.0-32.0 [facility] Comment on above: Performed By: #### I NFLUAB #### [facility] [address] [address] [address] Ashlie Hills Creatinine [Mass/Vol] 0.86 mg/dL Normal 0.55-1.02 [facility] Comment on above: Performed By: #### I NFLUAB #### [facility] [address] [place] [address] Dr. Ashlie Hills EGFR-AF ANGUILLAN >60 Normal >=60 [facility] Comment on above: Performed By: #### I NFLUAB #### [facility] [address] [address] [address] Ashlie Hills EGFR-NON AF ANGUILLAN >60 Normal >=60 [facility] Comment on above: Performed By: #### I NFLUAB #### [facility] [address] [address] [address] Ashlie Hills Glucose [Mass/Vol] 236 mg/dL Critically high 74-106 [facility] Comment on above: Performed By: #### I NFLUAB #### [facility] [address] [address] [address] Ashlie Hills Potassium [Moles/Vol] 4.2 mmol/L Normal 3.5-5.1 [facility] Comment on above: Performed By: #### I NFLUAB #### [facility] [address] [address] [address] Ashlie Hills Sodium [Moles/Vol] 138 mmol/L Normal 136-145 [facility] Comment on above: Performed By: #### I NFLUAB #### [facility] [address] [address] [address] Ashlie Hills Urea nitrogen [Mass/Vol] 11.0 mg/dL Normal 7.0-18.0 [facility] Comment on above: Performed By: #### I NFLUAB #### [facility] [address] [place] [address] Dr. Ashlie Hills Urea nitrogen/Creatinine [Mass ratio] 12.8 mg/mg Normal [facility] Comment on above: Performed By: #### I NFLUAB #### [facility] [address] [place] [address] Dr. Ashlie Hills URINE MICROSCOPIC ONLYon BACTERIA SMALL Abnormal NONE SEEN [facility] Comment on above: Performed By: #### E RUR, UMICRO #### [facility] [address] [place] [address] Dr. Ashlie Hills Bacteria identified Cx Nom (U) INDICATED Normal [facility] Comment on above: Performed By: #### E RUR, UMICRO #### [facility] [address] [place] [address] Dr. Ashlie Hills CAST NONE SEEN Normal NONE SEEN [facility] Comment on above: Performed By: #### E RUR, UMICRO #### [facility] [address] [place] [address] Dr. Ashlie Hills Crystals LM Nom (Urine sed) NONE SEEN Normal NONE SEEN [facility] Comment on above: Performed By: #### E RUR, UMICRO #### [facility] [address] [place] [address] Dr. Ashlie Hills Epithelial cells LM Ql (Urine sed) MODERATE Abnormal NONE SEEN /RARE [facility] Comment on above: Performed By: #### E RUR, UMICRO #### [facility] [address] [place] [address] Dr. Ashlie Hills MUCOUS NONE SEEN Normal NONE SEEN [facility] Comment on above: Performed By: #### E RUR, UMICRO #### [facility] [address] [place] [address] Dr. Ashlie Hills RBC 0-2 Normal 0-2 [facility] Comment on above: Performed By: #### E NURA, UMICRO #### [facility] [address] [place] [address] Dr. Ashlie Hills WBC 0-2 Abnormal NONE SEEN [facility] Comment on above: Performed By: #### E EVONNE LYMAN #### [facility] [address] [address] [address] Ashlie Hills YEAST PRESENT Abnormal NONE SEEN [facility] Comment on above: Performed By: #### E EVONNE LYMAN #### [facility] [address] [address] [address] Ashlie Hills HIP RIGHT 1 OR 2 VWS WITH PE LVISon 07-20-2020 HIP RIGHT 1 OR 2 VWS WITH PELVIS [facility] Department of Radiology [address] [place] [address] Patient Name: MITZI MACIAS : 1970 Sex: F Age: Race: White Pt. Location: Patient Status: O Ordered Date: 07/20/2020 1:45:00 PM Completed Date: 07/20/2020 01:57 PM Requesting Provider: LIZ EISENBERG Attending Provider: LIZ EISENBERG Report Copy To: MCKAYLA BLAS Signs & Symptoms: M25.551 Pain in right hip I10 History: [place] Comments: evaluate Exam: HIP RIGHT 1 OR [...] MRI. Electronically signed: Pipo Acevedo. Transcribed by: [email or web address], User Resident: Electronically Signed by: PIPO ACEVEDO @ 07/20/2020 03:45 PM Normal [facility] Comment on above: Order Comment: evalu ate Vital Signs Date Time Vital Sign Value Performing Clinician Facility 01-29-2025 09:48-0400 Body height 170.2 cm Rain Souza MD Work Phone: [facility] 01-29-2025 09:48-0400 Body mass index (BMI) [Ratio] 56.38 kg/m2 Rain Souza MD Work Phone: [facility] 01-29-2025 09:48-0400 Body weight 163.29 kg Rain Souza MD Work Phone: [facility] 01-29-2025 09:48-0400 Diastolic blood pressure 70 mm[Hg] Rain Souza MD Work Phone: [facility] 01-29-2025 09:48-0400 Heart rate 72 /min Rain Souza MD Work Phone: [facility] 01-29-2025 09:48-0400 Respiratory rate 16 /min Rain Souza MD Work Phone: [facility] 01-29-2025 09:48-0400 SaO2% (BldA) [Mass fraction] 84 % Rain Souza MD Work Phone: [facility] 01-29-2025 09:48-0400 Systolic blood pressure 130 mm[Hg] Rain Souza MD Work Phone: [facility] 01-26-2025 18:11-0400 Body mass index (BMI) [Ratio] 58.64 kg/m2 Mckayla Blsa NP Work Phone: [facility] 01-26-2025 18:11-0400 Body temperature 98.49 [degF] Mckayla Aichholz DICTIONARY EDITOR Work Phone: [facility] 01-26-2025 18:11-0400 Body weight 169.83 kg Mckayla Aichholz DICTIONARY EDITOR Work Phone: [facility] 01-26-2025 18:11-0400 Diastolic blood pressure 82 mm[Hg] Mckayla Aichholz DICTIONARY EDITOR Work Phone: [facility] 01-26-2025 18:11-0400 Heart rate 81 /min Mckayla Aichholz DICTIONARY EDITOR Work Phone: [facility] 01-26-2025 18:11-0400 Respiratory rate 20 /min Mckayla Aichholz DICTIONARY EDITOR Work Phone: [facility] 01-26-2025 18:11-0400 SaO2% (BldA) [Mass fraction] 90 % Mckayla Aichholz DICTIONARY EDITOR Work Phone: [facility] 01-26-2025 18:11-0400 Systolic blood pressure 126 mm[Hg] Mckayla Aichholz DICTIONARY EDITOR Work Phone: [facility] 12-09-2024 10:19-0400 Body temperature 98.01 [degF] Mckayla Aichholz DICTIONARY EDITOR Work Phone: [facility] 12-09-2024 10:19-0400 Diastolic blood pressure 76 mm[Hg] Mckayla Aichholz DICTIONARY EDITOR Work Phone: [facility] 12-09-2024 10:19-0400 Heart rate 71 /min Mckayla Aichholz DICTIONARY EDITOR Work Phone: [facility] 12-09-2024 10:19-0400 Respiratory rate 20 /min Mckayla Aichholz DICTIONARY EDITOR Work Phone: [facility] 12-09-2024 10:19-0400 SaO2% (BldA) [Mass fraction] 88 % Mckayla Aichholz DICTIONARY EDITOR Work Phone: [facility] 12-09-2024 10:19-0400 Systolic blood pressure 150 mm[Hg] Mckayla Blas DICTIONARY EDITOR Work Phone: [facility] 10-27-2024 14:11-0400 Body height 170.2 cm Mckayla Blas DICTIONARY EDITOR Work Phone: [facility] 10-27-2024 14:11-0400 Body mass index (BMI) [Ratio] 56.51 kg/m2 Mckaylajuvenal Rosenbergz DICTIONARY EDITOR Work Phone: [facility] 10-27-2024 14:11-0400 Body temperature 98.71 [degF] Mckayla Rosenbergz DICTIONARY EDITOR Work Phone: [facility] 10-27-2024 14:11-0400 Body weight 163.66 kg Mckayla Blas DICTIONARY EDITOR Work Phone: [facility] 10-27-2024 14:11-0400 Diastolic blood pressure 74 mm[Hg] Mckayla Rosenbergz DICTIONARY EDITOR Work Phone: [facility] 10-27-2024 14:11-0400 Heart rate 75 /min Mckaylajuvenal Rosenbergz DICTIONARY EDITOR Work Phone: [facility] 10-27-2024 14:11-0400 Respiratory rate 18 /min Mckaylajuvenal Blas DICTIONARY EDITOR Work Phone: [facility] 10-27-2024 14:11-0400 SaO2% (BldA) [Mass fraction] 90 % Mckaylajuvenal Rosenbergz DICTIONARY EDITOR Work Phone: [facility] 10-27-2024 14:11-0400 Systolic blood pressure 132 mm[Hg] Mckayla Rosenbergz DICTIONARY EDITOR Work Phone: [facility] 10-08-2024 11:040 Body height 170.2 cm Rain Souza MD Work Phone: [facility] 10-08-2024 11:21-0400 Body mass index (BMI) [Ratio] 55.91 kg/m2 Rain Souza MD Work Phone: [facility] 10-08-2024 11:21-0400 Body weight 161.93 kg Rain Souza MD Work Phone: [facility] 10-08-2024 11:21-0400 Diastolic blood pressure 70 mm[Hg] Rain Souza MD Work Phone: [facility] 10-08-2024 11:21-0400 Heart rate 70 /min Rain Souza MD Work Phone: [facility] 10-08-2024 11:21-0400 Respiratory rate 16 /min Rain Souza MD Work Phone: [facility] 10-08-2024 11:21-0400 SaO2% (BldA) [Mass fraction] 91 % Rain Souza MD Work Phone: [facility] 10-08-2024 11:21-0400 Systolic blood pressure 130 mm[Hg] Rain Souza MD Work Phone: [facility] 08-27-2024 17:44-0500 Body mass index (BMI) [Ratio] 57.31 kg/m2 Mckayla Wan DICTIONARY EDITOR Work Phone: [facility] 08-27-2024 17:44-0500 Body temperature 98.01 [degF] Mckayla Wan DICTIONARY EDITOR Work Phone: [facility] 08-27-2024 17:44-0500 Body weight 165.97 kg Mckayla Wan DICTIONARY EDITOR Work Phone: [facility] 08-27-2024 17:44-0500 Diastolic blood pressure 76 mm[Hg] Mckayla Wan DICTIONARY EDITOR Work Phone: [facility] 08-27-2024 17:44-0500 Heart rate 83 /min Mckayla Wan DICTIONARY EDITOR Work Phone: [facility] 08-27-2024 17:44-0500 Respiratory rate 18 /min Mckayla Wan DICTIONARY EDITOR Work Phone: [facility] 02-19-2025 17:44-0500 SaO2% (BldA) [Mass fraction] 91 % Mckayla Sowdona DICTIONARY EDITOR Work Phone: [facility] 08-27-2024 17:44-0500 Systolic blood pressure 134 mm[Hg] Mckayla Patriciajodie DICTIONARY EDITOR Work Phone: [facility] 06-11-2024 10:00-0500 Blood Pressure Location Elbert ARAUZ [facility] [place] 06-11-2024 10:00-0500 Diastolic blood pressure 68 mm[Hg] Elbert ARAUZ [facility] 06-11-2024 10:00-0500 Heart rate 76 /min Elbert ARAUZ [facility] 06-11-2024 10:00-0500 Systolic blood pressure 132 mm[Hg] Elbert ARAUZ [facility] 05-27-2024 10:20-0500 Body height 170.2 cm Rain Souza MD Work Phone: [facility] 05-27-2024 10:20-0500 Body mass index (BMI) [Ratio] 56.7 kg/m2 Rain Souza MD Work Phone: [facility] 05-27-2024 10:20-0500 Body weight 164.2 kg Rain Souza MD Work Phone: [facility] 05-27-2024 10:20-0500 Diastolic blood pressure 66 mm[Hg] Rain Souza MD Work Phone: [facility] 05-27-2024 10:20-0500 Heart rate 72 /min Rain Souza MD Work Phone: [facility] 05-27-2024 10:20-0500 Respiratory rate 16 /min Rain Souza MD Work Phone: [facility] 05-27-2024 10:20-0500 Systolic blood pressure 128 mm[Hg] Rain Souza MD Work Phone: [facility] 04-14-2024 10:27-0400 Body height 165.1 cm Mckayla Sowdona DICTIONARY EDITOR Work Phone: [facility] 04-14-2024 10:27-0400 Body mass index (BMI) [Ratio] 61.01 kg/m2 Mckayla Wan DICTIONARY EDITOR Work Phone: [facility] 04-14-2024 10:27-0400 Body temperature 98.49 [degF] Mckayla Wan DICTIONARY EDITOR Work Phone: [facility] 04-14-2024 10:27-0400 Body weight 166.29 kg Mckayla Wan DICTIONARY EDITOR Work Phone: [facility] 04-14-2024 10:27-0400 Diastolic blood pressure 80 mm[Hg] Mckayla Chetz DICTIONARY EDITOR Work Phone: [facility] 04-14-2024 10:27-0400 Heart rate 77 /min Mckayla Chetz DICTIONARY EDITOR Work Phone: [facility] 04-14-2024 10:27-0400 Respiratory rate 19 /min Mckayla Chetz DICTIONARY EDITOR Work Phone: [facility] 04-14-2024 10:27-0400 SaO2% (BldA) [Mass fraction] 92 % Mckayla Chetz DICTIONARY EDITOR Work Phone: [facility] 04-14-2024 10:27-0400 Systolic blood pressure 116 mm[Hg] Mckayla Chetz DICTIONARY EDITOR Work Phone: [facility] 03-08-2022 15:00-0400 Body height 170.18 cm Stephanie Tico Other [facility] [employer] Other 03-08-2022 15:00-0400 Body temperature 97.6 [degF] Stephanie Tico Other [employer] Other 03-08-2022 15:00-0400 Diastolic blood pressure 72 mm[Hg] Stephanie Tico Other [employer] Other 03-08-2022 15:00-0400 Respiratory rate 20 /min Stephanie Tico Other [employer] Other 03-08-2022 15:00-0400 SaO2% (BldA) [Mass fraction] 91 % Stephanie Tico Other [employer] Other 03-08-2022 15:00-0400 Systolic blood pressure 131 mm[Hg] Stephanie Tico Other [employer] Other 02-20-2022 09:20-0400 Body height 170.18 cm Stephanie Tico Other [employer] Other 02-20-2022 09:20-0400 Body temperature 96.5 [degF] Stephanie Tico Other [employer] Other 02-20-2022 09:20-0400 Diastolic blood pressure 69 mm[Hg] Stephanie Tico Other [employer] Other 02-20-2022 09:20-0400 Respiratory rate 20 /min Stephanie Tico Other [employer] Other 02-20-2022 09:20-0400 SaO2% (BldA) [Mass fraction] 91 % Stephanie Tico Other [employer] Other 02-20-2022 09:20-0400 Systolic blood pressure 129 mm[Hg] Stephanie Lizamadir Other [employer] Other 02-06-2022 10:24-0400 Blood Pressure Location Elbert ARAUZ [facility] 02-06-2022 10:24-0400 Diastolic blood pressure 76 mm[Hg] Elbert ARAUZ [facility] 02-06-2022 10:24-0400 Heart rate 70 /min Elbert ARAUZ [facility] 02-06-2022 10:24-0400 Respiratory rate 16 /min Elbert ARAUZ [facility] [employer] 02-06-2022 10:24-0400 Systolic blood pressure 134 mm[Hg] Elbert ARAUZ [facility] Encounters Encounter Date Encounter Type Care Provider Facility Start: 01-29-2025 End: 01-29-2025 Bamboo flowsheet Rain Souza MD Work Phone: [facility] Start: 01-29-2025 End: 01-29-2025 Bamboo flowsheet Rain Souza MD Work Phone: [facility] Start: 01-29-2025 End: 01-29-2025 Clinisync Result Encounter Generic External Data Provider [facility] External Department Unsolicited Start: 01-29-2025 End: 01-29-2025 ambulatory RAIN SOUZA Not Available Start: 01-29-2025 End: 01-29-2025 Office outpatient visit 25 minutes Rain Souza MD Work Phone: [facility] Comment on above: Encounter for dietar y consultation (Primary Dx); Type 2 diabetes mellitus with hyperglycemia, with long-term current use of insulin (HCC); Vitamin D deficiency; Primary hypertension ; Insulin long-term use (HCC); Hyperlipemia, mixed ; Microalbuminuria; Class 3 severe obesity due to excess calories with serious comorbidity and body mass index (BMI) of 50.0 to 59.9 in adult ([facility]) Start: 01-26-2025 End: 01-26-2025 ambulatory MCKAYLA BLAS Not Available Start: 01-26-2025 End: 01-26-2025 Patient encounter procedure Mckayla Blas NP Work Phone: [facility] Comment on above: Encounter for subseq uent [...] Morbid (severe) obesity due to excess calories ([facility]) Start: 01-06-2025 End: 01-06-2025 ambulatory [facility] Start: 12-18-2024 End: 12-19-2024 Refill Mckayla Blas NP Work Phone: [facility] Comment on above: Hyperlipidemia, unsp ecified ; Tobacco user; Encounter for smoking cessation counseling Start: 12-09-2024 End: 12-09-2024 Bamboo flowsheet Mckayla Blas NP Work Phone: [facility] Start: 12-09-2024 End: 12-09-2024 Bamboo flowsheet Mckayla Blas DICTIONARY EDITOR Work Phone: [facility] Start: 12-09-2024 End: 12-09-2024 ambulatory MCKAYLA AICHHOLZ Not Available Start: 12-09-2024 End: 12-09-2024 Office outpatient visit 25 minutes Mckayla Blas DICTIONARY EDITOR Work Phone: [facility] Comment on above: Cellulitis of left [...] Office outpatient visit 25 minutes Mckayla Blas DICTIONARY EDITOR Work Phone: [facility] Comment [...] 10-21-2024 Refill Mckayla Blas NP Work Phone: [facility] Comment on above: Chronic obstructive pulmonary disease, unspecified Start: 10-08-2024 End: 10-08-2024 Clinisync Result Encounter Mckayla Blas NP Work Phone: [facility] External Department Unsolicited Start: 10-08-2024 End: 10-08-2024 Clinisync Result Encounter Mckayla Wan SCHAEFER Work Phone: [facility] External Department Unsolicited Start: 10-08-2024 End: 10-08-2024 Office outpatient visit 25 minutes Rain Souza MD Work Phone: [facility] Comment on above: Type 2 [...] 25 minutes Mckayla Blas NP Work Phone: [facility] Comment on above: Anxiety and depressi [...] complication, with long-term current use of insulin ([facility]); Tobacco user; Mixed hyperlipidemia ([facility]); Gout, unspecified cause, unspecified chronicity, unspecified site; Vitamin deficiency; Gastro-esophageal reflux disease without esophagitis; Edema, unspecified; Edema; Hyperlipidemia, unspecified ([facility]); Encounter for smoking cessation counseling; Venous ulcer of right leg ([facility]); Antibiotic-induced yeast infection Start: 08-27-2024 End: 08-27-2024 ambulatory MCKAYLA BLAS Not Available Start: 08-27-2024 End: 08-27-2024 Clinisync Result Encounter Generic External Data Provider [facility] External Department Unsolicited Start: 08-27-2024 End: 08-27-2024 Clinisync Result Encounter Generic External Data Provider [facility] External Department Unsolicited Start: 08-08-2024 End: 08-08-2024 ambulatory [facility] Start: 07-17-2024 End: 07-17-2024 Refill Mckayla Blas NP Work Phone: [facility] Start: 07-14-2024 End: 07-14-2024 Office outpatient visit 25 minutes Mckayla Blas NP Work Phone: [facility] Comment on above: Primary hypertension ([facility]) (Primary Dx); Diabetic polyneuropathy associated with type 2 diabetes mellitus ([facility]); Pulmonary emphysema, unspecified emphysema type ([facility]); Critical limb ischemia of right lower extremity ([facility]); PAD (peripheral artery disease) ([facility]); Gastroesophageal reflux disease, unspecified whether esophagitis present; Bilateral lower extremity edema; Venous ulcer of right leg ([facility]); Type 2 diabetes mellitus with complication, with long-term current use of insulin ([facility]); Tobacco user; Encounter for smoking cessation counseling; Kidney stone; Adrenal mass 1 cm to 4 cm in diameter ([facility]); Radiculopathy, lumbar region; Non-seasonal allergic rhinitis, unspecified trigger; Type 2 diabetes mellitus with unspecified complications ([facility]) Start: 07-14-2024 End: 07-14-2024 ambulatory MCKAYLA AICHHOLZ Not Available Start: 07-05-2024 End: 07-07-2024 Refill Mckayla Aichholz DICTIONARY EDITOR Work Phone: [facility] Comment on above: Bilateral lower extr emity edema Start: 06-11-2024 ambulatory Elbert ARAUZ [place] ty:SHEA [place] Start: 06-11-2024 End: 06-11-2024 Patient encounter procedure Elbert ARAUZ [facility] [place] Start: 05-27-2024 End: 05-27-2024 Bambolalo flowsheet Rain Souza MD Work Phone: [facility] Start: 05-27-2024 End: 05-27-2024 Bamboo flowsheet Rain Souza MD Work Phone: [facility] Start: 05-27-2024 End: 05-27-2024 ambulatory RAIN SOUZA Not Available Start: 05-27-2024 End: 05-27-2024 Office outpatient visit 25 minutes Rain Souza MD Work Phone: [facility] Comment on above: Type 2 diabetes asiya itus with hyperglycemia, with long-term current use of insulin ([facility]) (Primary Dx); Encounter for dietary consultation; Vitamin D deficiency; Primary hypertension ([facility]); Insulin long-term use ([facility]); Hyperlipemia, mixed (CMS/HCC); Microalbuminuria; Class 3 severe obesity due to excess calories with serious comorbidity and body mass index (BMI) of 50.0 to 59.9 in adult (CMS/HCC) Start: 05-12-2024 End: 05-12-2024 Clinisync Result Encounter Generic External Data Provider [facility] External Department Unsolicited Start: 05-12-2024 End: 05-12-2024 Clinisync Result Encounter Generic External Data Provider [facility] External Department Unsolicited Start: 05-08-2024 ambulatory SARAH Wilkerson ty:[facility] [place] Start: 04-14-2024 End: 04-14-2024 Bamboo flowsheet Mckayla Aichholz DICTIONARY EDITOR Work Phone: [facility] Start: 04-14-2024 End: 04-14-2024 Bamboo flowsheet Mckayla Aichholz DICTIONARY EDITOR Work Phone: [facility] Start: 04-14-2024 End: 04-14-2024 Office outpatient visit 25 minutes Mckayla Harshadholz DICTIONARY EDITOR Work Phone: [facility] Comment on above: Primary hypertension [...] Start: 04-05-2024 End: 04-06-2024 Refill Mckayla Aichholz DICTIONARY EDITOR Work Phone: [facility] Comment on above: Hyperlipidemia, unsp ecified (CMS/HCC); Bilateral lower extremity edema Vitamin D deficiency , unspecified Start: 01-17-2024 Patient encounter procedure Rain Souza MD Work Phone: [facility] Start: 08-17-2023 Refill Mckayla Aichholz DICTIONARY EDITOR Work Phone: [facility] Comment on above: Vaginal yeast infect ion (Primary Dx) Start: 08-14-2023 Refill Mckayla Aichholz DICTIONARY EDITOR Work Phone: [facility] Comment on above: Type 2 diabetes asiya [...] System Start: 10-05-2022 End: 10-05-2022 ambulatory MARIANO BLAKE [...] 03-08-2022 End: 03-08-2022 ambulatory Stephanie Tico Other [employer] Other Start: 03-08-2022 Office outpatient vi sit 15 minutes Stephanie Tico [facility] Start: 03-03-2022 End: 03-04-2022 ambulatory [facility] MCKAYLA BLAS Facility:[facility] Start: 02-20-2022 End: 02-20-2022 ambulatory Stephanie Tico Other [employer] Other Start: 02-20-2022 Office outpatient ne w 45 minutes Stephanie Tico [facility] Start: 02-06-2022 End: 02-06-2022 Patient encounter procedure Elbert ARAUZ [facility] Start: 01-19-2022 End: 01-20-2022 ambulatory GIL VALENZUELA . Facility:[facility] Start: 12-24-2021 End: 12-24-2021 ambulatory OLE ASHLEY Facility: Start: 08-26-2020 End: 09-10-2020 Patient encounter procedure MARY GABINOLOS Facility:[facility] Start: 10-30-2019 End: 10-30-2019 Emergency department patient visit [facility] Start: 10-30-2019 End: 10-30-2019 Emergency department patient visit [facility] Emergency Department Start: 11-02-2016 Preoperative state Stephanie Tico Other [employer] Other Procedures Date Procedure Procedure Detail Performing [...] Rain Souza MD Work Phone: Start: 10-08-2024 [facility] UA (CLEAN/CATCH) MICROSCOPIC IF INDICATE Mckayla Blas NP Work Phone: Start: 08-27-2024 ALL CBC WITH AUTO DIFF Generic External Data Provider Start: 05-27-2024 Gluc bld gluc mntr d ev cleared fda spec home use Rain Souza MD Work Phone: Start: 05-12-2024 [facility] CREATININE Generic External Data Provider Start: 12-14-2023 [...] procedure 02/01/2026 6:00 PM EDT Office Visit [facility] [address] [place] [address] Mckayla Blas NP [address] [place] [address] [facility] Start: 01-26-2026 Medicare Annual Wellness (AWV) Medicare Annual Wellness (AWV) [facility] Start: 10-08-2025 Urine screening for protein Diabetes: Urine Protein Screening [facility] Start: 08-03-2025 Screening for malignant neoplasm of colon [facility] Start: 07-14-2025 Glaucoma screening Diabetes: R etinopathy Screening [facility] Start: 05-28-2025 End: 05-28-2025 Patient encounter procedure 05/28/2025 10:30 AM EST Office Visit [facility] [address] [place] [address] Rain Souza MD [address] [place] [address] [facility] Start: 05-13-2025 Glaucoma screening Diabetes: R etinopathy Screening [facility] Start: 05-01-2025 Hemoglobin A1c measurement Diabetes: Hemoglobin A1C [facility] Start: 04-29-2025 End: 04-29-2025 Patient encounter procedure 04/29/2025 6:00 PM EDT Office Visit [facility] [address] [place] [id number] Mckayla Blas, DICTIONARY EDITOR [address] [place] [phone] [facility] Start: 03-09-2025 Influenza vaccination N [facility] Start: 01-28-2025 End: 01-28-2025 Patient encounter procedure 01/28/2025 10:50 AM EDT Office Visit [facility] [address] [place] [address] Rain Souza MD [address] [place] [address] [facility] Start: 01-26-2025 End: 01-26-2025 Patient encounter procedure 01/26/2025 6:00 PM EDT Office Visit [facility] [address] [place] [phone] Mckayla Blas, DICTIONARY EDITOR [address] [place] [phone] [facility] Start: 01-16-2025 Medicare Annual Wellness (AWV) Medicare Annual Wellness (AWV) [facility] Start: 01-07-2025 Hemoglobin A1c measurement Diabetes: Hemoglobin A1C [facility] Start: 12-15-2024 End: 12-27-2025 MG Breast - bilateral Screening Bilateral screening mammogram Imaging Routine Encounter for screening mammogram for malignant neoplasm of breast Expected: 12/15/2024 (Approximate), Expires: 12/27/2025 [facility] Work Phone: Comment on above: Expected: 12/15/2024 (Approximate), Expires: 12/27/2025 Start: 12-13-2024 Screening for malignant neoplasm of breast Mammogram [facility] Start: 11-11-2024 Urine screening for protein Diabetes: Urine Protein Screening [facility] Start: 10-27-2024 End: 10-27-2024 Patient encounter procedure 10/27/2024 2:00 PM EDT Office Visit [facility] [address] [place] [phone] Mckayla Blas, SILVANO [address] [place] [phone] [facility] Start: 10-08-2024 End: 10-08-2024 Patient encounter procedure 10/08/2024 11:20 AM EDT Office Visit [facility] [address] [place] [address] Rain Souza MD [address] [place] [address] [facility] Start: 08-27-2024 End: 08-27-2024 Patient encounter procedure 08/27/2024 5:30 PM EST Office Visit [facility] [address] [place] [phone] Mckayla Blas, SILVANO [address] [place] [phone] [facility] Start: 08-27-2024 End: 08-27-2025 25-hydroxyvitamin D3 [Mass/volume] in Serum or Plasma Vitamin D 25 hydroxy Lab Routine Vitamin deficiency Expected: 08/27/2024 (Approximate), Expires: 08/27/2025 [facility] Comment on above: Expected: 08/27/2024 (Approximate), Expires: 08/27/2025 Start: 08-27-2024 Hemoglobin A1c measurement Diabetes: Hemoglobin A1C [facility] Start: 08-27-2024 End: 08-27-2025 Hepatic function 2000 panel - Serum or Plasma Hepatic function panel Lab Routine Hyperlipidemia, unspecified (CMS/HCC) Expected: 08/27/2024 (Approximate), Expires: 08/27/2025 [facility] Comment on above: Expected: 08/27/2024 (Approximate), Expires: 08/27/2025 Start: 08-27-2024 End: 08-27-2025 Lipid 1996 panel - Serum or Plasma Lipid panel Lab Routine Mixed hyperlipidemia (CMS/HCC) Expected: 08/27/2024 (Approximate), Expires: 08/27/2025 [facility] Work Phone: Comment on above: Expected: 08/27/2024 (Approximate), Expires: 08/27/2025 Start: 08-27-2024 End: 08-27-2025 Microalbumin/Creatini ne panel in random Urine Microalbumin / creatinine, urine ratio Lab Routine Primary hypertension (CMS/HCC) Type 2 diabetes mellitus with complication, with long-term current use of insulin ([facility]) Expected: 08/27/2024 (Approximate), Expires: 08/27/2025 [facility] Comment on above: Expected: 08/27/2024 (Approximate), Expires: 08/27/2025 Start: 08-27-2024 End: 08-27-2025 Urate [Mass/volume] in Serum or Plasma Uric acid Lab Routine Gout, unspecified cause, unspecified chronicity, unspecified site Expected: 08/27/2024 (Approximate), Expires: 08/27/2025 [facility] Comment on above: Expected: 08/27/2024 (Approximate), Expires: 08/27/2025 Start: 08-27-2024 End: 08-27-2025 Urinalysis complete panel - Urine Urinalysis with reflex microscopic (clean catch) Lab Routine Primary hypertension ([facility]) Type 2 diabetes mellitus with complication, with long-term current use of insulin ([facility]) Tobacco user Gout, unspecified cause, unspecified chronicity, unspecified site Expected: 08/27/2024 (Approximate), Expires: 08/27/2025 [facility] Comment on above: Expected: 08/27/2024 (Approximate), Expires: 08/27/2025 Start: 08-26-2024 End: 08-26-2024 Patient encounter procedure 08/26/2024 10:30 AM EST Office Visit [facility] [address] [place] [address] Rain Souza MD [address] [place] [address] [facility] Start: 07-14-2024 End: 07-14-2024 Patient encounter procedure 07/14/2024 6:30 PM EST Office Visit [facility] [address] [place] [address] Mckayla Blas NP [address] [place] [address] [facility] Start: 07-14-2024 End: 07-14-2024 Patient encounter procedure 07/14/2024 10:10 AM EST Office Visit [facility] [address] [place] [address] Rain Souza MD [address] [place] [address] [facility] Start: 06-06-2024 Influenza vaccination Influenza Vacc ine (#1) [facility] Comment on above: Postponed from 03/09 (Patient Refused) Start: 05-27-2024 End: 05-27-2024 Patient encounter procedure 05/27/2024 9:50 AM EST Office Visit [facility] [address] [place] [address] Rain Souza MD [address] [place] [address] [facility] Start: 05-17-2024 Hemoglobin A1c measurement Diabetes: Hemoglobin A1C [facility] Start: 05-15-2024 End: 05-15-2024 Chart abstracting 05/15/2024 Abstract [facility] [address] [place] [address] Rain Souza MD [address] [place] [address] [facility] Start: 05-15-2024 End: 05-15-2024 Patient encounter procedure 05/15/2024 11:20 AM EST Office Visit [facility] [address] [place] [address] Rain Souza MD [address] [place] [address] [facility] Start: 04-17-2024 End: 04-17-2024 Patient encounter procedure 04/17/2024 3:40 PM EDT Office Visit [facility] [address] [place] [address] Mckayla Blas NP [address] [place] [address] [facility] Start: 04-14-2024 End: 04-14-2024 Patient encounter procedure 04/14/2024 11:00 AM EDT Office Visit [facility] [address] [place] [address] Mckayla Blas NP [address] [place] [id number] Arrived [facility] Comment on above: Arrived Start: 03-09-2024 Influenza vaccination Influenza Vacc ine (#1) [facility] Start: 02-19-2024 Hemoglobin A1c measurement Diabetes: Hemoglobin A1C [facility] Start: 11-24-2023 Urine screening for protein Diabetes: Urine Protein Screening [facility] Start: 11-23-2023 Screening for malignant neoplasm of breast Mammogram [facility] Start: 10-15-2023 End: 10-15-2023 Patient encounter procedure 10/15/2023 4:30 PM EDT Office Visit [facility] [address] [place] [address] Mckayla Blas NP [address] [place] [phone] [facility] Start: 08-09-2023 Hemoglobin A1c measurement Diabetes: Hemoglobin A1C [facility] Start: 05-27-2021 Glaucoma screening Diabetes: R etinopathy Screening [facility] Start: 03-09-2020 Influenza vaccination Flu vacc ine (Season Ended) [place], [place] Start: 10-07-2018 Screening for malignant neoplasm of cervix [facility] Start: 2010 Lipid panel Lipid screen [place], [place] Start: 2000 Screening for malignant neoplasm of cervix HPV/Cotest [facility] Start: 1991 Screening for malignant neoplasm of cervix Cervical cancer screen [place], [place] Start: 1989 DTaP/Tdap/Td vaccine (1 - Tdap) DTaP/Tdap/Td vaccine ( - Tdap) [place], [place] Start: 1985 HIV screening HIV screen [place], [place] Start: 1970 Medicare Annual Wellness (AWV) Medicare Annual Wellness (AWV) [facility] Start: 1970 Screening for malignant neoplasm of colon [facility] BLOOD CULTURE 1 BLOOD CULTURE 1 Lab Routine 12/04/2024 4:44 PM EDT [facility] BLOOD CULTURE 2 BLOOD CULTURE 2 Lab Routine 12/04/2024 5:28 PM EDT [facility] Immunizations Immunization Date Immunization Notes Care Provider Judie lucas 05-18-2023 influenza, injectabl e, quadrivalent, contains preservative Mckayla Blas DICTIONARY EDITOR Work Phone: [facility] 05-18-2023 influenza virus vacc ine, unspecified formulation Rian Souza MD Work Phone: [facility] 07-19-2021 SARS-CoV-2 (COVID-19 ) mRNA BNT-162b2 vax [facility] 10-28-2020 SARS-CoV-2 (COVID-19 ) mRNA BNT-162b2 vax [facility] 10-08-2020 SARS-CoV-2 (COVID-19 ) mRNA BNT-162b2 vax [facility] 04-16-2017 influenza virus vacc ine, H5N1, A/ (national stockpile) Mckayla Blas DICTIONARY EDITOR Work Phone: [facility] 04-16-2017 influenza virus vacc ine, unspecified formulation Rain Souza MD Work Phone: [facility] 04-16-2017 influenza, unspecifi ed formulation Elbert ARAUZ [facility] 04-16-2017 pneumococcal polysaccharide vaccine, 23 valent Rain Souza MD Work Phone: [facility] 05-10-2016 influenza virus vacc ine, H5N1, A/ (national stockpile) Mckayla Blas DICTIONARY EDITOR Work Phone: [facility] 05-10-2016 influenza virus vacc ine, unspecified formulation Rain Souza MD Work Phone: [facility] 05-10-2016 influenza, unspecifi ed formulation Elbert ARAUZ [facility] 05-02-2013 influenza virus vacc ine, whole virus Rain Souza MD Work Phone: [facility] 05-02-2013 influenza, injectabl e, quadrivalent, contains preservative Mckayla Blas DICTIONARY EDITOR Work Phone: [facility] 05-02-2013 influenza, whole Elbert BARBARA ERS [facility] 01-29-1998 measles, mumps and rubella virus vaccine Rain Souza MD Work Phone: [facility] Payers Date Payer Category Payer Unknown [id number] 2023 Medicare (Managed Care) 1.2. [id number] 2023 Private Health Insurance [facility] [id number] 2023-Present [address] [address] [place] [address] [id number] 2023 Medicare [id number] 2018 Medicaid MEDICAID [facility] [id number] 2018-Present [phone] [address] [place] [address] Medicaid [id number] 2013 Medicare [id number]. [id number] 1970 Unknown [id number] 2.16.840.1.958964.3.579.2. 647 1970 Unknown [id number] 2.16.840.1.412962.3.579.2. 593 1970 Unknown [id number] 2.16.840.1.419536.3.579.2. 593 1970 Unknown [id number] 2.16.840.1.819017.3.579.2. 593 1970 Unknown [id number] 2.16.840.1.207724.3.579.2. 593 1970 Unknown [id number] 2.16.840.1.872546.3.579.2. 593 1970 Unknown [id number] 2.16.840.1.914531.3.579.2. 593 1970 Unknown [id number] 2.16.840.1.661322.3.579.2. 593 1970 Unknown [id number] 2.16.840.1.148541.3.579.2. 593 1970 Unknown [id number] 2.16.840.1.800043.3.579.2. 593 1970 Unknown [id number] 2.16.840.1.805819.3.579.2. 593 1970 Unknown [id number] 2.16.840.1.312922.3.579.2. 593 1970 Unknown [id number] 2.16.840.1.624704.3.579.2. 593 1970 Unknown [id number] 2.16.840.1.638685.3.579.2. 593 1970 Unknown [id number] 2.16.840.1.523565.3.579.2. 593 1970 Unknown [id number] 2.16.840.1.590467.3.579.2. 593 1970 Unknown [id number] 2.16.840.1.511152.3.579.2. 593 1970 Unknown [id number] 2.16.840.1.265151.3.579.2. 593 1970 Unknown [id number] 2.16.840.1.963289.3.579.2. 593 1970 Unknown [id number] 2.16.840.1.114166.3.579.2. 593 1970 Unknown [id number] 2.16.840.1.126836.3.579.2. 593 1970 Unknown [id number] 2.16.840.1.294349.3.579.2. 593 1970 Unknown [id number] 2.16.840.1.835436.3.579.2. 593 1970 Unknown [id number] 2.16840.1.543182.3.579.2. 727 1970 Unknown [id number] 2.16.840.1.891019.3.579.2. 727 1970 Unknown [id number] 2.16.840.1.189319.3.579.2. 1259 1970 Unknown [id number] 2.16.840.1.136567.3.579.2. 1259 1970 Unknown [id number] 2.16.840.1.016609.3.579.2. 1259 1970 Unknown [id number] 2.16.840.1.552191.3.579.2. 1259 1970 Unknown [id number] 2.16.840.1.125313.3.579.2. 1259 1970 Unknown [id number] 2.16.840.1.927175.3.579.2. 1259 1970 Unknown [id number] 2.16.840.1.189229.3.579.2. 1259 1970 Unknown [id number] 2.16.840.1.033220.3.579.2. 1259 1970 Unknown [id number] 2.16.840.1.690916.3.579.2. 1259 1959 Medicaid [id number] 1959 Private Health Insurance [id number] 1959 Unknown [id number] 2.16.840.1.787639.19 Social History Date Type Detail Facility Start: 02-17-2014 End: 01-29-2025 Tobacco smoking status NHIS Current every day smoker [place] Start: 02-17-1994 History of tobacco use Cigarette Smo ker [place] Start: 02-17-2014 End: 08-26-2024 Cigarettes smoked current (pack per day) - Reported [place] Start: 02-17-2014 Alcohol intake Current drinke r of alcohol (finding) [place] Start: 02-17-2014 Alcohol Comment Rare [place], [place] Start: 1970 Sex Assigned At Not on file [place], [place] Exposure to SARS-CoV -2 (event) Unable to assess [place] Start: 02-06-2022 Tobacco smoking status Smoker (findi ng) [facility] Start: 07-10-2023 End: 08-26-2024 Sex Assigned At Female [facility] Start: 11-15-2022 End: 06-11-2024 Tobacco smoking status Heavy tobacco smoker (finding) [facility] Start: 07-10-2023 End: 01-29-2025 Tobacco use [...] Equipment Origin al Text Equipment Identifier Dates [id number] Start: 01-18-2024 USE TO TEST BLOO D SUGAR 4 TIMES DAILY [id number] Start: 07-07-2024 Functional Status Date Assessment Result Facility 01-26-2025 Patient Health [facility] ionnaire 2 item (PHQ-2) [Reported] [facility] 01-26-2025 Trouble falling or s taying asleep, or sleeping too much Not at all 01/26/2025 4:13 PM EDT Mychart, Generic Not at all [facility] 01-26-2025 Feeling tired or hav ing little energy Not at all 01/26/2025 4:13 PM EDT Mychart, Generic Not at all [facility] 01-26-2025 Poor appetite or overeating Not at all 01/26/2025 4:13 PM EDT Mychart, Generic Not at all [facility] 01-26-2025 Feeling bad about yourself-or that you are a failure or have let yourself or your family down Not at all 01/26/2025 4:13 PM EDT Mychart, Generic Not at all [facility] 01-26-2025 Trouble concentratin g on things, such as reading the newspaper or watching television Not at all 01/26/2025 4:13 PM EDT Mychart, Generic Not at all [facility] 01-26-2025 Moving or speaking s o slowly that other people could have noticed. Or the opposite - being so fidgety or restless that you have been moving around a lot more than usual Not at all 01/26/2025 4:13 PM EDT Mychart, Generic Not at all [facility] 01-26-2025 Thoughts that you wo uld be better off , or of hurting yourself in some way Not at all 01/26/2025 4:13 PM EDT Mychart, Generic Not at all [facility] 06-11-2024 Functional Status N/A [facility] 11-15-2022 Functional Status N/A [facility] 02-06-2022 Functional Status N/A [facility] Clinical Notes 01-19-2022 to 02-04-2025 Rain Souza [...] Follow-up as planned in 6 months. Thanks! [facility] 01-29-2025 History of Present illness Narrative Images [...] 25 mg, Oral, 2 times daily HYDROcodone-acetaminophen ([place]) 5-325 MG tablet 1 tablet, 3 times [...] 09/17/2023 Angiomyolipoma Anxiety and depression 07/10/2023 Asthma ([facility]) 07/10/2023 Body mass index (BMI) 50.0-59.9, adult ([facility]) Cellulitis of left lower extremity Cervical cancer ([facility]) 09/17/2023 Chronic pain of both knees 09/17/2023 COPD (chronic obstructive pulmonary disease) ([facility]) 07/10/2023 COPD exacerbation ([facility]) 09/17/2023 Decreased functional mobility 09/17/2023 Diabetic neuropathy ([facility]) 07/10/2023 Dietary counseling and surveillance Edema 07/10/2023 Elevated sed rate Elevated WBC count Essential (primary) hypertension GERD (gastroesophageal reflux disease) 09/17/2023 Hyperlipidemia 09/17/2023 Hypertension 07/10/2023 Insomnia 09/17/2023 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 ([facility]) Lower extremity edema 09/17/2023 Mixed hyperlipidemia Morbid (severe) obesity due to excess calories ([facility]) Obstructive sleep apnea 07/10/2023 PAD (peripheral artery disease) 09/17/2023 Pancreatitis ([facility]) 09/17/2023 Pneumonia 09/17/2023 Proteinuria, unspecified Pulmonary hypertension ([facility]) 09/17/2023 Radiculopathy, lumbar region 09/17/2023 Tobacco user 09/17/2023 Type 2 diabetes mellitus with complication, with long-term current use of insulin ([facility]) 07/10/2023 Unilateral primary osteoarthritis, right [...] (BMI) of 50.0 to 59.9 in adult ([facility]) Diet and exercise reviewed with the patient Follow up in about 4 months (around 06/01/2025). documented in this encounter [facility] 01-26-2025 History of Present illness Narrative Associated Problem(s): Anxiety and depression Current meds: elavil, duloxtine, Associated Problem(s): Morbid (severe) obesity due to excess calories ([facility]) Discussed with patient their BMI (actual, verses [...] Asthma (HCC) Current meds: albuterol, duoneb, Has group home worker 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 Associated Problem(s): COPD (chronic [...] 25 mg, Oral, 2 times daily HYDROcodone-acetaminophen ([place]) 5-325 MG tablet 1 tablet, 3 times [...] Cellulitis of left lower extremity Cervical cancer ([facility]) 09/17/2023 Chronic pain of both knees 09/17/2023 COPD (chronic obstructive pulmonary disease) ([facility]) 07/10/2023 COPD exacerbation ([facility]) 09/17/2023 Decreased functional mobility 09/17/2023 Diabetic neuropathy ([facility]) 07/10/2023 Dietary counseling and surveillance Edema 07/10/2023 Elevated sed rate Elevated WBC count Essential (primary) hypertension GERD (gastroesophageal reflux disease) 09/17/2023 Hyperlipidemia 09/17/2023 Hypertension 07/10/2023 Insomnia 09/17/2023 care home (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 ([facility]) Lower extremity edema 09/17/2023 Mixed hyperlipidemia Morbid (severe) obesity due to excess calories ([facility]) Obstructive sleep apnea 07/10/2023 PAD (peripheral artery disease) 09/17/2023 Pancreatitis ([facility]) 09/17/2023 Pneumonia 09/17/2023 Proteinuria, unspecified Pulmonary hypertension ([facility]) 09/17/2023 Radiculopathy, lumbar region 09/17/2023 Tobacco user 09/17/2023 Type 2 diabetes mellitus with complication, with long-term current use of insulin ([facility]) 07/10/2023 Unilateral primary osteoarthritis, right [...] is 7.4%!!! COPD (chronic obstructive pulmonary disease) ([facility]) Follows with 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 home worker 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 Hypertension Please check blood [...] amitriptyline (Elavil) 25 MG tablet Pulmonary hypertension ([facility]) Has seen [facility] Cardiology Hyperlipidemia On statin therapy Check labs [...] Morbid (severe) obesity due to excess calories ([facility]) Discussed with patient their BMI [...] Associated Problem(s): Pulmonary hypertension (HCC) Has seen [facility] Cardiology Associated Problem(s): Hypertension Please check blood [...] a yearly basis documented in this encounter [facility] 01-26-2025 Instructions Mckayla Blas NP - 01/26/2025 6:00 PM EDT Please call the [facility] to schedule your mammogram: [phone]- ext [phone] documented in this encounter [facility] 01-06-2025 Note Cardiovascular Medic [facility] SUBJECTIVE Chief Complaint Patient presents with Congestive Heart Failure Hypertension Hyperlipidemia Mitzi Macias is a 54 y.o. female here for follow-up. PMHx: HFpEF, HTN, HLD, DM, longstanding heavy smoker, COPD, DANIEL, morbid obesity HPI 01/06/2025 Since last seen she was admitted to [facility] for AMS on 12/05/2024. She was treated [...] syndrome (CMS/HCC) Decreased functional mobility Diabetic neuropathy ([facility]) Easy bruising GERD (gastroesophageal reflux disease) [...] complication, with long-term current use of insulin ([facility]/HCC) Unilateral primary osteoarthritis, right hip Vaginal yeast infection Venous insufficiency Bad odor of urine Critical limb ischemia of right lower extremity ([facility]/HCC) Hyperpigmentation of skin 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 2 diabetes mellitus ([facility]/HCC) Myelolipoma of adrenal gland Venous ulcer of right leg ([facility]/HCC) Chronic diastolic heart failure ([facility]) Antibiotic-induced yeast infection Cellulitis of left lower extremity Cigarette nicotine dependence without complication Fever 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 ([facility]) care home current use of inhaled steroid Vitamin D deficiency, unspecified Vitamin deficiency Past Medical History: Diagnosis Date COPD (chronic obstructive pulmonary disease) ([facility]/HCC) Diabetes mellitus ([facility]) Hyperlipidemia Hypertension Sleep apnea Family History Problem [...] , Rfl: ergocalciferol (Vitamin D-2) 1.25 MG (63028 Units) capsule, Take 1.25 mg by mouth., [...] and at bedtime., Disp: , Rfl: HYDROcodone-acetaminophen ([place]) 5-325 mg tablet, TAKE 1 TABLET BY MOUTH THREE TIMES A DAY NEEDED FOR PAIN MUST LAST 30 DAYS, Disp: , Rfl: insulin aspart (NovoLOG) 100 unit/mL (3 mL) injection pen, Novolog Flexpen U-100 Insulin aspart 100 unit/mL (3 mL) subcutaneous, Disp: , Rfl: insulin glargine (Lantus Solostar U-100 Insulin) 100 unit/mL (3 mL) injection pen (more content not included)... [facility] 01-06-2025 Note Patient is here toda y [...] weight gain. Cardiovascular: Positive for leg swelling. [facility] 12-09-2024 History of Present illness Narrative Associated [...] bad light. She was ultimately taken to [facility] ER, no tox screen was done that [...] 25 mg, Oral, 2 times daily HYDROcodone-acetaminophen ([place]) 5-325 MG tablet 1 tablet, 3 times [...] CT Albuminuria 09/17/2023 Angiomyolipoma Anxiety and depression ([facility]) 07/10/2023 Asthma 07/10/2023 Body mass index (BMI) 50.0-59.9, adult ([facility]) Cellulitis of left lower extremity Cervical cancer ([facility]) 09/17/2023 Chronic pain of both knees 09/17/2023 COPD (chronic obstructive pulmonary disease) ([facility]) 07/10/2023 COPD exacerbation ([facility]) 09/17/2023 Decreased functional mobility 09/17/2023 Diabetic neuropathy ([facility]) 07/10/2023 Dietary counseling and surveillance Edema 07/10/2023 Elevated sed rate Elevated WBC count Essential (primary) hypertension ([facility]) GERD (gastroesophageal reflux disease) 09/17/2023 Hyperlipidemia ([facility]) 09/17/2023 Hypertension (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) Lower extremity edema 09/17/2023 Mixed hyperlipidemia ([facility]) Morbid (severe) obesity due to excess calories ([facility]) Obstructive sleep apnea 07/10/2023 PAD (peripheral artery disease) ([facility]) 09/17/2023 Pancreatitis 09/17/2023 Pneumonia 09/17/2023 Proteinuria, unspecified Pulmonary hypertension ([facility]) 09/17/2023 Radiculopathy, lumbar region 09/17/2023 Tobacco user 09/17/2023 Type 2 diabetes mellitus with complication, with long-term current use of insulin ([facility]) 07/10/2023 Unilateral primary osteoarthritis, right hip 09/17/2023 [...] Problem List Items Addressed This Visit Hypertension ([facility]) Please check blood pressure daily and record DASH diet Limit caffeine Take medication as directed Contact office if chest pain, pressure, dizziness, shortness of breath, swelling legs Recommend slow position changes Current meds: hydralazine, lisinopril, Type 2 diabetes mellitus with complication, with long-term current use of insulin ([facility]) Check blood sugars daily, notify [...] secondary to her steroids Anxiety and depression ([facility]) Current meds: elavil, duloxtine, COPD exacerbation ([facility]) Recent ER visit for unresponsiveness , found to have fever and elevated WBC Sent home with steroids and atb Breathing is better and she feels back to her normal baseline Does have home O2, she is not wearing this today Pulmonary hypertension ([facility]) Has seen [facility] Cardiology Morbid (severe) obesity due to excess calories ([facility]) Discussed with patient their BMI [...] Finish atb's Associated Problem(s): Anxiety and depression ([facility]) Current meds: elavil, duloxtine, Associated Problem(s): Type 2 diabetes mellitus with complication, with long-term current use of insulin ([facility]) Check blood sugars daily, notify [...] Associated Problem(s): Pulmonary hypertension (CMS/HCC) Has seen [facility] Cardiology Associated Problem(s): Hypertension (CMS/HCC) Please check [...] wearing this today documented in this encounter [facility] 12-09-2024 Instructions Mckayla Blas NP - 12/09/2024 10:00 AM EDT Keep appt with wound care today Keep fu with me, sooner if needed documented in this encounter [facility] 10-27-2024 History of Present illness Narrative Associated [...] 25 mg, Oral, 2 times daily HYDROcodone-acetaminophen ([place]) 5-325 MG tablet 1 tablet, 3 times [...] CT Albuminuria 09/17/2023 Angiomyolipoma Anxiety and depression ([facility]) 07/10/2023 Asthma 07/10/2023 Body mass index (BMI) 50.0-59.9, adult ([facility]) Cellulitis of left lower extremity Cervical cancer ([facility]) 09/17/2023 Chronic pain of both knees 09/17/2023 COPD (chronic obstructive pulmonary disease) ([facility]) 07/10/2023 COPD exacerbation ([facility]) 09/17/2023 Decreased functional mobility 09/17/2023 Diabetic neuropathy ([facility]) 07/10/2023 Dietary counseling and surveillance Edema 07/10/2023 Elevated sed rate Elevated WBC count Essential (primary) hypertension ([facility]) GERD (gastroesophageal reflux disease) 09/17/2023 Hyperlipidemia ([facility]) 09/17/2023 Hypertension (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) Lower extremity edema 09/17/2023 Mixed hyperlipidemia ([facility]) Morbid (severe) obesity due to excess calories ([facility]) Obstructive sleep apnea 07/10/2023 PAD (peripheral artery disease) ([facility]) 09/17/2023 Pancreatitis 09/17/2023 Pneumonia 09/17/2023 Proteinuria, unspecified Pulmonary hypertension ([facility]) 09/17/2023 Radiculopathy, lumbar region 09/17/2023 Tobacco user 09/17/2023 Type 2 diabetes mellitus with complication, with long-term current use of insulin ([facility]) 07/10/2023 Unilateral primary osteoarthritis, right hip 09/17/2023 [...] complication, with long-term current use of insulin ([facility]) Check blood sugars daily, notify [...] 81 MG chewable tablet Anxiety and depression ([facility]) Current meds: elavil, duloxtine, Relevant Medications DULoxetine (Cymbalta) [address] capsule Bilateral lower extremity edema Limit sodium , elevate legs, furosemide Relevant Medications furosemide (Lasix) 20 MG tablet potassium chloride ER (Micro-K) 10 MEQ ER capsule furosemide (Lasix) 40 MG tablet Insomnia Relevant Medications amitriptyline (Elavil) 25 MG tablet PAD (peripheral artery disease) ([facility]) Asa, statin Quit smoking BP [...] MG tablet Venous ulcer of right leg ([facility]) Continue with wound care and management of wound, currently they are using dakins Wound is improving Morbid (severe) obesity due to excess calories ([facility]) Discussed with patient their BMI [...] mounjaro for DM Chronic diastolic heart failure ([facility]) Current meds; asa, farxiga, lasix, hydralazine, lisinopril, Follows with cardilogy Reviewed 08/02 notes Cigarette nicotine dependence without complication Is currently using chantix, and is doing well, less desire, smoking less Vitamin D deficiency, unspecified Relevant Medications ergocalciferol (Vitamin D2) 1.25 MG (19965 UT) capsule Gastro-esophageal reflux disease without esophagitis Relevant Medications omeprazole (PriLOSEC) [address] capsule Other Visit Diagnoses Type 2 diabetes mellitus with unspecified complications Relevant Medications dapagliflozin (Farxiga) 10 MG Associated Problem(s): Cigarette nicotine dependence without complication Is currently using chantix, and is doing well, less desire, smoking less Associated Problem(s): Anxiety and depression ([facility]) Current meds: elavil, duloxtine, Associated Problem(s): Type 2 diabetes mellitus with complication, with long-term current use of insulin ([facility]) Check blood sugars daily, notify [...] A1c is 7.4%!!! documented in this encounter [facility] 10-27-2024 Instructions Mckayla Blas NP - 10/27/2024 2:00 PM EDT No dose changes in meds You will be due for mammogram I will send order to [facility], they should call you to schedule If no call, please call [phone] documented in this encounter [facility] 10-08-2024 History of Present illness Narrative [...] or chew. ergocalciferol (Vitamin D2) 1.25 MG (41510 UT) capsule TAKE 1 CAPSULE BY MOUTH [...] 25 mg, Oral, 2 times daily HYDROcodone-acetaminophen ([place]) 5-325 MG tablet 1 tablet, 3 times [...] CT Albuminuria 09/17/2023 Angiomyolipoma Anxiety and depression ([facility]) 07/10/2023 Asthma ([facility]) 07/10/2023 Body mass index (BMI) 50.0-59.9, adult ([facility]) Cellulitis of left lower extremity Cervical cancer ([facility]) 09/17/2023 Chronic pain of both knees 09/17/2023 COPD (chronic obstructive pulmonary disease) ([facility]) 07/10/2023 COPD exacerbation ([facility]) 09/17/2023 Decreased functional mobility 09/17/2023 Diabetic neuropathy ([facility]) 07/10/2023 Dietary counseling and surveillance Edema 07/10/2023 Elevated sed rate Elevated WBC count Essential (primary) hypertension ([facility]) GERD (gastroesophageal reflux disease) 09/17/2023 Hyperlipidemia ([facility]) 09/17/2023 Hypertension (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) Lower extremity edema 09/17/2023 Mixed hyperlipidemia ([facility]) Morbid (severe) obesity due to excess calories ([facility]) Obstructive sleep apnea 07/10/2023 PAD (peripheral artery disease) ([facility]) 09/17/2023 Pancreatitis 09/17/2023 Pneumonia 09/17/2023 Proteinuria, unspecified Pulmonary hypertension ([facility]) 09/17/2023 Radiculopathy, lumbar region 09/17/2023 Tobacco user 09/17/2023 Type 2 diabetes mellitus with complication, with long-term current use of insulin ([facility]) 07/10/2023 Unilateral primary osteoarthritis, right hip 09/17/2023 [...] hyperglycemia, with long-term current use of insulin ([facility]) - POCT glucose manually resulted [...] months (around 02/07/2025). documented in this encounter [facility] 08-27-2024 History of Present illness Narrative [...] or chew. ergocalciferol (Vitamin D2) 1.25 MG (21997 UT) capsule TAKE 1 CAPSULE BY MOUTH [...] 25 mg, Oral, 2 times daily HYDROcodone-acetaminophen ([place]) 5-325 MG tablet 1 tablet, 3 times [...] CT Albuminuria 09/17/2023 Angiomyolipoma Anxiety and depression ([facility]) 07/10/2023 Asthma ([facility]) 07/10/2023 Body mass index (BMI) 50.0-59.9, adult ([facility]) Cellulitis of left lower extremity Cervical cancer ([facility]) 09/17/2023 Chronic pain of both knees 09/17/2023 COPD (chronic obstructive pulmonary disease) ([facility]) 07/10/2023 COPD exacerbation ([facility]) 09/17/2023 Decreased functional mobility 09/17/2023 Diabetic neuropathy ([facility]) 07/10/2023 Dietary counseling and surveillance Edema 07/10/2023 Elevated sed rate Elevated WBC count Essential (primary) hypertension ([facility]) GERD (gastroesophageal reflux disease) 09/17/2023 Hyperlipidemia ([facility]) 09/17/2023 Hypertension ([facility]) 07/10/2023 Insomnia 09/17/2023 care home (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 ([facility]) Lower extremity edema 09/17/2023 Mixed hyperlipidemia ([facility]) Morbid (severe) obesity due to excess calories ([facility]) Obstructive sleep apnea 07/10/2023 PAD (peripheral artery disease) ([facility]) 09/17/2023 Pancreatitis 09/17/2023 Pneumonia 09/17/2023 Proteinuria, unspecified Pulmonary hypertension ([facility]) 09/17/2023 Radiculopathy, lumbar region 09/17/2023 Tobacco user 09/17/2023 Type 2 diabetes mellitus with complication, with long-term current use of insulin ([facility]) 07/10/2023 Unilateral primary osteoarthritis, right [...] List Items Addressed This Visit Diabetic neuropathy ([facility]) Continue with cintia hudson mgmt is prescribing OARRS reviewed Fu in 3 months Goal: tighter glucose control Hypertension ([facility]) Please check blood pressure daily [...] complication, with long-term current use of insulin ([facility]) Check blood sugars daily, notify [...] / creatinine, urine ratio Anxiety and depression ([facility]) - Primary Current meds: elavil, [...] PPI Malignant neoplasm of cervix uteri, unspecified ([facility]) Had in the past, had hysterectomy Tobacco user The patient has been advised of the risks of continued smoking: stroke, MO, all forms of cancer, lung disease, and [...] of the risks of continued smoking: stroke, MO, all forms of cancer, lung disease, and [...] lisinopril, Associated Problem(s): Chronic diastolic heart failure ([facility]) Current meds; asa, farxiga, lasix, hydralazine, lisinopril, Follows with cardilogy Reviewed 08/02 notes Associated Problem(s): COPD (chronic obstructive pulmonary disease) ([facility]) Follows with verena Needs smoking cessation Current meds: duoneb, albuterol, daliresp, Associated Problem(s): Asthma ([facility]) Current meds: albuterol, duoneb, 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 home worker 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 Associated Problem(s): Obstructive sleep [...] tighter glucose control documented in this encounter [facility] 08-08-2024 Note [place] [facility] Subjective Mitzi Macias is a [...] Diagnosis Date COPD (chronic obstructive pulmonary disease) ([facility]) Diabetes mellitus ([facility]) Hyperlipidemia Hypertension Sleep apnea Past Surgical [...] , Rfl: ergocalciferol (Vitamin D-2) 1.25 MG (96169 Units) capsule, Take 1.25 mg by mouth., [...] and at bedtime., Disp: , Rfl: HYDROcodone-acetaminophen ([place]) 5-325 mg tablet, TAKE 1 TABLET BY [...] TWICE DAILY, Disp: (more content not included)... [facility] 07-14-2024 History of Present illness Narrative [...] or chew. ergocalciferol (Vitamin D2) 1.25 MG (21229 UT) capsule TAKE 1 CAPSULE BY MOUTH ONE TIME PER WEEK furosemide (LASIX) 40 mg, Oral, Daily furosemide (LASIX) 20 mg, Oral, Daily PRN, Take in the afternoon as needed hydrALAZINE (APRESOLINE) 25 mg, Oral, 2 times daily HYDROcodone-acetaminophen ([place]) 5-325 MG tablet 1 tablet, 3 times [...] CT Albuminuria 09/17/2023 Angiomyolipoma Anxiety and depression ([facility]) 07/10/2023 Asthma ([facility]) 07/10/2023 Body mass index (BMI) 50.0-59.9, adult ([facility]) Cellulitis of left lower extremity Cervical cancer ([facility]) 09/17/2023 Chronic pain of both knees 09/17/2023 COPD (chronic obstructive pulmonary disease) ([facility]) 07/10/2023 COPD exacerbation ([facility]) 09/17/2023 Decreased functional mobility 09/17/2023 Diabetic neuropathy ([facility]) 07/10/2023 Dietary counseling and surveillance Edema 07/10/2023 Elevated sed rate Elevated WBC count Essential (primary) hypertension ([facility]) GERD (gastroesophageal reflux disease) 09/17/2023 Hyperlipidemia ([facility]) 09/17/2023 Hypertension (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) Lower extremity edema 09/17/2023 Mixed hyperlipidemia ([facility]) Morbid (severe) obesity due to excess calories ([facility]) Obstructive sleep apnea 07/10/2023 PAD (peripheral artery disease) ([facility]) 09/17/2023 Pancreatitis 09/17/2023 Pneumonia 09/17/2023 Proteinuria, unspecified Pulmonary hypertension ([facility]) 09/17/2023 Radiculopathy, lumbar region 09/17/2023 Tobacco user 09/17/2023 Type 2 diabetes mellitus with complication, with long-term current use of insulin ([facility]) 07/10/2023 Unilateral primary osteoarthritis, right hip 09/17/2023 [...] List Items Addressed This Visit Diabetic neuropathy ([facility]) Continue with tristan EAST reviewed Fu in 3 months COPD (chronic obstructive pulmonary disease) ([facility]) Stable at this time, no changes in meds Encouraged smoking cessation Cont with dr Yañez Hypertension ([facility]) - Primary Please check blood pressure daily and record DASH diet Limit caffeine Take medication as directed Contact office if chest pain, pressure, dizziness, shortness of breath, swelling legs Recommend slow position changes Current meds: hydralazine, lisinopril, Type 2 diabetes mellitus with complication, with long-term current use of insulin ([facility]) Check blood sugars daily, notify [...] of the risks of continued smoking: stroke, MO, all forms of cancer, lung disease, and [...] 1 cm to 4 cm in diameter ([facility]) Continue with Urology Kidney stone Continue with Urology Non-seasonal allergic rhinitis Relevant Medications cetirizine (ZyrTEC) 10 MG tablet Critical limb ischemia of right lower extremity ([facility]) Saw vascular, does have narrowing in arteries in legs, and thus the wounds not healing At this point they strongly urge to quit smoking or risk limb amputation Cont asa and statin Also good blood pressure and sugar control Venous ulcer of right leg ([facility]) Encounter for smoking cessation counseling Relevant Medications nicotine (Nicoderm, Step 1) 21 MG/24HR patch Other Visit Diagnoses Type 2 diabetes mellitus with unspecified complications ([facility]) Quitting smokinppd, chantix not helped, ] Face time with pt, spent 15 minutes with pt Associated Problem(s): Tobacco user The patient has been advised of the risks of continued smoking: stroke, MO, all forms of cancer, lung disease, and [...] complication, with long-term current use of insulin ([facility]) Check blood sugars daily, notify [...] PPI Associated Problem(s): PAD (peripheral artery disease) ([facility]) Asa, statin Quit smoking BP [...] in 3 months documented in this encounter [facility] 06-11-2024 Hospital Discharge instructions Patient Education [...] require a prescription. You can also purchase [id number] medicines. Medicines may have nicotine in them [...] and encouragement. Call telephone quitlines, such as 1-199-ZDTF-NOW, reach out to support groups, or work [...] provider. Document Revised: 06/16/2022 Document Reviewed: 06/16/2022 [employer] Patient Education 2023 [place]. 06/11/2024 10:39:22 Dietary Guidelines to Help Prevent [...] include: ?8 oz (237 mL) of milk, qgbvbpk-apoxhtpapbtn-osfhe milk, and calcium-fortifiedfruit juice. Calcium-fortified means that [...] ?Spinach (cooked), rhubarb, beets, sweet potatoes, and Ecuadorean chard. ?Peanuts. ?Potato chips, lao fries, and baked potatoes with skin on. ?Nuts and nut products. ?Chocolate. If you regularly take a diuretic medicine, make sure to eat at least 1 or 2 servings of fruits or vegetables that are high in potassium each day. These include: ?Avocado. ?Banana. ?[place], prune, carrot, or tomato juice. ?Baked potato. [...] magnesium, fish oil, or vitamin B6. Take swli-pti-klryvha and prescription medicines only as told by [...] Casseroles. Pizza. Lasagna. Frozen meals. Potato chips. Czech fries. The items listed above may not [...] provider. Document Revised: 10/05/2022 Document Reviewed: 10/05/2022 [employer] Patient Education 2023 [place]. Follow Up Care 05/06/2024 08:24:56 With:REGLA PHIPPS, Elbert Joya, URL Address: [facility] [address] , [place] [address]- When: Unknown [facility] [place] 05-27-2024 History of Present illness Narrative Mitzi [...] or chew. ergocalciferol (Vitamin D2) 1.25 MG (46271 UT) capsule TAKE 1 CAPSULE BY MOUTH ONE TIME PER WEEK furosemide (LASIX) 20 mg, Oral, Daily PRN, Take in the afternoon as needed furosemide (LASIX) 40 mg, Oral, Daily Glucose Blood (ACCU-CHEK JAQUI PLUS ) 4 times daily hydrALAZINE (APRESOLINE) 25 mg, Oral, 2 times daily HYDROcodone-acetaminophen ([place]) 5-325 MG tablet 1 tablet, 3 times [...] CT Albuminuria 09/17/2023 Angiomyolipoma Anxiety and depression ([facility]) 07/10/2023 Asthma ([facility]) 07/10/2023 Body mass index (BMI) 50.0-59.9, adult ([facility]) Cellulitis of left lower extremity Cervical cancer ([facility]) 09/17/2023 Chronic pain of both knees 09/17/2023 COPD (chronic obstructive pulmonary disease) ([facility]) 07/10/2023 COPD exacerbation ([facility]) 09/17/2023 Decreased functional mobility 09/17/2023 Diabetic neuropathy ([facility]) 07/10/2023 Dietary counseling and surveillance Edema 07/10/2023 Elevated sed rate Elevated WBC count GERD (gastroesophageal reflux disease) 09/17/2023 Hyperlipidemia ([facility]) 09/17/2023 Hypertension (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) Lower extremity edema 09/17/2023 Morbid (severe) obesity due to excess calories ([facility]) Obstructive sleep apnea 07/10/2023 PAD (peripheral artery disease) ([facility]) 09/17/2023 Pancreatitis 09/17/2023 Pneumonia 09/17/2023 Proteinuria, unspecified Pulmonary hypertension ([facility]) 09/17/2023 Radiculopathy, lumbar region 09/17/2023 Tobacco user 09/17/2023 Type 2 diabetes mellitus with complication, with long-term current use of insulin ([facility]) 07/10/2023 Unilateral primary osteoarthritis, right hip 09/17/2023 [...] hyperglycemia, with long-term current use of insulin ([facility]) - POCT glucose manually resulted - POCT glycosylated hemoglobin (Hb A1C) docked device We will continue with Lantus 58, lispro 02/16/12 according to meal size, Mounjaro 15 mg once weekly, Farxiga 5 mg once a day Encounter for dietary consultation Vitamin D deficiency Primary hypertension ([facility]) To follow with her PCP Insulin long-term use ([facility]) Hyperlipemia, mixed ([facility]) Continue with Zocor 10 mg once daily Microalbuminuria Class 3 severe obesity due to excess calories with serious comorbidity and body mass index (BMI) of 50.0 to 59.9 in adult ([facility]) Diet and exercise reviewed with the patient Follow up in about 3 months (around 08/27/2024). documented in this encounter [facility] 04-14-2024 History of Present illness Narrative [...] being taken. She does not see a it quality analyst.Eye exam is not current. Hypertension This is [...] or chew. ergocalciferol (Vitamin D2) 1.25 MG (04739 UT) capsule TAKE 1 CAPSULE BY MOUTH ONE TIME PER WEEK furosemide (LASIX) 20 mg, Oral, Daily PRN, Take in the afternoon as needed furosemide (LASIX) 40 mg, Oral, Daily Glucose Blood (ACCU-CHEK JAQUI PLUS ) 4 times daily HumaLOG KWIKPEN 100 UNIT/ML injection Subcutaneous hydrALAZINE (APRESOLINE) 25 mg, Oral, 2 times daily HYDROcodone-acetaminophen ([place]) 5-325 MG tablet 1 tablet, 3 times [...] CT Albuminuria 09/17/2023 Angiomyolipoma Anxiety and depression ([facility]) 07/10/2023 Asthma ([facility]) 07/10/2023 Cellulitis of left lower extremity Cervical cancer ([facility]) 09/17/2023 Chronic pain of both knees 09/17/2023 COPD (chronic obstructive pulmonary disease) ([facility]) 07/10/2023 COPD exacerbation ([facility]) 09/17/2023 Decreased functional mobility 09/17/2023 Diabetic neuropathy ([facility]) 07/10/2023 Edema 07/10/2023 Elevated sed rate Elevated WBC count GERD (gastroesophageal reflux disease) 09/17/2023 Hyperlipidemia ([facility]) 09/17/2023 Hypertension ([facility]) 07/10/2023 Insomnia 09/17/2023 Lower extremity edema 09/17/2023 Obstructive sleep apnea 07/10/2023 PAD (peripheral artery disease) ([facility]) 09/17/2023 Pancreatitis 09/17/2023 Pneumonia 09/17/2023 Pulmonary hypertension ([facility]) 09/17/2023 Radiculopathy, lumbar region 09/17/2023 Tobacco user 09/17/2023 Type 2 diabetes mellitus with complication, with long-term current use of insulin ([facility]) 07/10/2023 Unilateral primary osteoarthritis, right hip 09/17/2023 [...] List Items Addressed This Visit Diabetic neuropathy ([facility]) Continue with tristan EAST reviewed Fu in 3 months Relevant Medications pregabalin (Lyrica) 300 MG capsule COPD (chronic obstructive pulmonary disease) ([facility]) - Primary Stable at this time, no changes in meds Encouraged smoking cessation Cont with dr Yañez Hypertension ([facility]) Stable on current meds Refill meds Relevant Medications hydrALAZINE (Apresoline) 25 MG tablet lisinopril 20 MG tablet Type 2 diabetes mellitus with complication, with long-term current use of insulin ([facility]) Check blood sugars daily, follow [...] 500 MCG tablet documented in this encounter [facility] 11-15-2022 Hospital Discharge instructions Patient Education [...] include: ?8 oz (237 mL) of milk, vtfguhw-oylmiyidgcvf-gvzam milk, and calcium-fortifiedfruit juice. Calcium-fortified means that [...] ?Spinach (cooked), rhubarb, beets, sweet potatoes, and Ecuadorean chard. ?Peanuts. ?Potato chips, lao fries, and baked potatoes with skin on. ?Nuts and nut products. ?Chocolate. If you regularly take a diuretic medicine, make sure to eat at least 1 or 2 servings of fruits or vegetables that are high in potassium each day. These include: ?Avocado. ?Banana. ?[place], prune, carrot, or tomato juice. ?Baked potato. [...] magnesium, fish oil, or vitamin B6. Take lgte-nnh-tjogenb and prescription medicines only as told by [...] Casseroles. Pizza. Lasagna. Frozen meals. Potato chips. Czech fries. The items listed above may not [...] provider. Document Revised: 03/06/2022 Document Reviewed: 03/06/2022 [employer] Patient Education 2022 [place]. Follow Up Care 02/06/2022 11:44:09 With:SARAH VEGA PA-C, URL Address: [address] [place] [address] When: Unknown [facility] 08-24-2022 Note CONSULTATION CONSULTATION DATE: 08/24/2022 HISTORY [...] We maintain her on pain medication with [place] 5/325 t.i.d., diclofenac 75 mg b.i.d. Her [...] her at this point. A refill for [place] 5/325 t.i.d. and diclofenac 75 mg b.i.d. will be sent to the pharmacy. Vitamin compliance and nutrition were discussed and enforced. I did highly encourage her to use exercise bands to increase the strength in her lower extremities. We will see her in three months' time, unless otherwise indicated, and patient agrees. [facility] 05-11-2022 Note CONSULTATION CONSULTATION DATE: 05/11/2022 [...] 150. Medications include Lyrica 300 mg b.i.d., [place] 5/325 t.i.d., diclofenac 75 mg b.i.d. and [...] her medications today. We will maintain Lyrica, [place] and diclofenac at the set dose and frequency. We will follow-up in the clinic in three months' time. The patient is in agreement to this. Vitamin importance and nutrition were discussed. [facility] 04-20-2022 Note CONSULTATION CONSULTATION DATE: 04/20/2022 [...] medications include Tylenol, Lyrica 300 mg b.i.d., [place] 5/325 t.i.d., amitriptyline, diclofenac and duloxetine. Patient's [...] followed up in the clinic. [facility] 03-08-2022 Evaluation note Encounter Date Diagnosis [...] uncontrolled DM and currently follows with Dr. Suoza. Advised to continue work with Dr. Pringle [...] to the DANIEL. Thrombocytopenia is unclear etiology. [facility] Other 08-15-2022 Evaluation note* Encounter Date Diagnosis [...] follow with Dr. Souza and Dr. Arauz. [facility] Other 08-01-2022 Hospital Discharge instructions Patient Education [...] fried and sweet foods. General instructions Take kglc-wzd-zcgzvgk and prescription medicines only as told by [...] 04/21/2010 Document Revised: 10/16/2019 Document Reviewed: 07/11/2018 [employer] Patient Education 2020 [employer]. Follow Up Care 01/05/2022 12:02:03 With:REGLA PHIPPS, Elbert Joya, URL Address: [facility] [address] [place] [address] [phone] When:Within 6 Month(s) Comments:w/ repeat CT A/P [...] by: GIL VALENZUELA . 01/27/2022 14:15:00[facility]07-14-2022 NoteCONSULTATION CONSULTATION DATE: 01/19/2022 [...] today. Medications include Lyrica 300 mg b.i.d., [place] 5/325 t.i.d., diclofenac 75 mg b.i.d. and [...] by: GIL VALENZUELA . 01/27/2022 14:15:00[facility] Future App[facility]ments Appointment Date:08/14/2022 09:15:00 AM Scheduled Provider:Elbert ARAUZ MD Location:[facility] Appointment Type:URO Office Visit [facility] evaluation + Plan note Future Appointments Appointment Date:04/22/2024 10:00:00 AM Scheduled Provider:SARAH VEGA PA-C Location:[facility] Appointment Type:URO Office Visit [facility] evalauokbu note* Diagnosis Type 2 diabetes mellitus with unspecified complications ([facility]) Edema, unspecified Edema [facility] Diagnosis Vaginal yeast infection- Primary Candidiasis of vulva and vagina documented in this [facility]* Diagnosis Primary hypertension ([facility]/HCC)- Primary Unspecified essential hypertension Insomnia Insomnia, unspecified Type 2 diabetes mellitus with complication, with long-term current use of insulin (CMS/HCC) Non-seasonal allergic rhinitis, unspecified trigger Type 2 diabetes mellitus with unspecified complications (CMS/HCC) Anxiety and depression ([facility]) Gastro-esophageal reflux disease without esophagitis Edema, unspecified Edema Diabetic polyneuropathy associated with type 2 diabetes mellitus ([facility]/HCC) Chronic obstructive pulmonary disease, unspecified (CMS/HCC) Pulmonary emphysema, unspecified emphysema type (CMS/HCC) Bilateral lower extremity edema Tobacco user Tobacco use disorder Hyperpigmentation of skin Other dyschromia documented [facility]* Diagnosis Obstructive sleep apnea- Primary Obstructive sleep apnea (adult) (pediatric) Pulmonary emphysema, unspecified emphysema type (CMS/HCC) Primary hypertension ([facility]) Unspecified essential hypertension Type 2 diabetes mellitus with complication, with long-term current use of insulin ([facility]) Anxiety and depression (CMS/[facility]) Bilateral lower extremity edema Pulmonary emphysema, unspecified emphysema type (CMS/HCC)- Primary Primary hypertension (CMS/[facility]) Unspecified essential hypertension Class 3 severe obesity with serious comorbidity and body mass index (BMI) of 50.0 to 59.9 in adult, unspecified obesity type ([facility]) Obstructive sleep apnea Obstructive sleep apnea (adult) (pediatric) Pulmonary hypertension (CMS/[facility]) Other chronic pulmonary heart diseases Tobacco user Tobacco use disorder Cardiomegaly Primary hypertension ([facility])- Primary Unspecified essential hypertension Gastroesophageal reflux disease, unspecified whether esophagitis present Type 2 diabetes mellitus with complication, with long-term current use of insulin ([facility]) Mixed hyperlipidemia ([facility]) Mixed hyperlipidemia Tobacco user Tobacco use disorder Encounter for screening mammogram for malignant neoplasm of breast Chronic obstructive pulmonary disease, unspecified ([facility]) Other specified chronic obstructive pulmonary disease ([facility]) Anxiety and depression ([facility]) Edema, unspecified Edema Hyperlipidemia, unspecified ([facility]) Diabetic polyneuropathy associated with type 2 diabetes mellitus ([facility]) Gout, unspecified cause, unspecified chronicity, unspecified site Non-seasonal allergic rhinitis, unspecified trigger Bilateral lower extremity edema COPD exacerbation ([facility]) Obstructive chronic bronchitis with exacerbation Pulmonary emphysema, unspecified emphysema type ([facility]) Venous insufficiency Unspecified venous (peripheral) insufficiency Candidiasis of breast COPD exacerbation ([facility])- Primary Obstructive chronic bronchitis with exacerbation Pulmonary hypertension ([facility]) Other chronic pulmonary heart diseases Class 3 severe obesity with serious comorbidity and body mass index (BMI) of 50.0 to 59.9 in adult, unspecified obesity type ([facility]) Encounter for subsequent annual wellness visit (AWV) in Medicare patient- Primary Type 2 diabetes mellitus with unspecified complications ([facility]) Pulmonary emphysema, unspecified emphysema type ([facility] Moderate persistent asthma without complication ([facility]) Primary hypertension ([facility]) Unspecified essential hypertension Type 2 diabetes mellitus with complication, with long-term current use of insulin ([facility]) Class 3 severe obesity with serious comorbidity and body mass index (BMI) of 50.0 to 59.9 in adult, unspecified obesity type ([facility]) Tobacco user Tobacco use disorder Other headache syndrome Malignant neoplasm of cervix uteri, unspecified ([facility]) Other specified disorders of adrenal gland ([facility]) Major depressive disorder, single episode, mild (HCC) ([facility]) Major depressive disorder, single episode, mild 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 exposed ([facility]) Chronic respiratory failure, unspecified whether with hypoxia or hypercapnia ([facility]) Disorder of adrenal gland, unspecified ([facility]) Non-pressure chronic ulcer of other part of right lower leg limited to breakdown of skin ([facility]) Non-recurrent acute suppurative otitis media of left ear without spontaneous rupture of tympanic membrane Primary hypertension ([facility])- Primary Unspecified essential hypertension Insomnia Insomnia, unspecified Type 2 diabetes mellitus with complication, with long-term current use of insulin ([facility]) Non-seasonal allergic rhinitis, unspecified trigger Type 2 diabetes mellitus with unspecified complications ([facility]) Anxiety and depression ([facility]) Gastro-esophageal reflux disease without esophagitis Edema, unspecified Edema Diabetic polyneuropathy associated with type 2 diabetes mellitus ([facility]) Chronic obstructive pulmonary disease, unspecified ([facility]) Pulmonary emphysema, unspecified emphysema type ([facility]) Bilateral lower extremity edema Tobacco user Tobacco use disorder Hyperpigmentation of skin Other dyschromia Type 2 diabetes mellitus with hyperglycemia, with long-term current use of insulin ([facility])- Primary Encounter for dietary consultation Vitamin D deficiency Primary hypertension ([facility]) Unspecified essential hypertension Insulin long-term use ([facility]) Encounter for long-term (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 Hyperlipemia, mixed ([facility]) Mixed hyperlipidemia Microalbuminuria Proteinuria Class 3 severe obesity due to excess calories with serious comorbidity and body mass index (BMI) of 50.0 to 59.9 in adult ([facility]) documented in this encounter [facility]* Diagnosis Hyperlipidemia, unspecified ([facility]) Bilateral lower extremity edema documented in this encounter [facility]* Diagnosis Vitamin D deficiency, unspecified documented in this encounter [facility]* Diagnosis Obstructive sleep apnea- Primary Obstructive sleep apnea (adult) (pediatric) Pulmonary emphysema, unspecified emphysema type ([facility]) Primary hypertension ([facility]) Unspecified essential hypertension Type 2 diabetes mellitus with complication, with long-term current use of insulin ([facility]) Anxiety and depression ([facility]) Bilateral lower extremity edema Pulmonary emphysema, unspecified emphysema type ([facility])- Primary Primary hypertension ([facility]) Unspecified essential hypertension Class 3 severe obesity with serious comorbidity and body mass index (BMI) of 50.0 to 59.9 in adult, unspecified obesity type ([facility]) Obstructive sleep apnea Obstructive sleep apnea (adult) (pediatric) Pulmonary hypertension ([facility]) Other chronic pulmonary heart diseases Tobacco user Tobacco use disorder Cardiomegaly Primary hypertension ([facility])- Primary Unspecified essential hypertension Gastroesophageal reflux disease, unspecified whether esophagitis present Type 2 diabetes mellitus with complication, with long-term current use of insulin ([facility]) Mixed hyperlipidemia ([facility]) Mixed hyperlipidemia Tobacco user Tobacco use disorder Encounter for screening mammogram for malignant neoplasm of breast Chronic obstructive pulmonary disease, unspecified ([facility]) Other specified chronic obstructive pulmonary disease ([facility]) Anxiety and depression ([facility]) Edema, unspecified Edema Hyperlipidemia, unspecified ([facility]) Diabetic polyneuropathy associated with type 2 diabetes mellitus ([facility]) Gout, unspecified cause, unspecified chronicity, unspecified site Non-seasonal allergic rhinitis, unspecified trigger Bilateral lower extremity edema COPD exacerbation ([facility]) Obstructive chronic bronchitis with exacerbation Pulmonary emphysema, unspecified emphysema type ([facility]) Venous insufficiency Unspecified venous (peripheral) insufficiency Candidiasis of breast COPD exacerbation ([facility])- Primary Obstructive chronic bronchitis with exacerbation Pulmonary hypertension ([facility]) Other chronic pulmonary heart diseases Class 3 severe obesity with serious comorbidity and body mass index (BMI) of 50.0 to 59.9 in adult, unspecified obesity type ([facility]) Encounter for subsequent annual wellness visit (AWV) in Medicare patient- Primary Type 2 diabetes mellitus with unspecified complications ([facility]) Pulmonary emphysema, unspecified emphysema type ([facility]) Moderate persistent asthma without complication ([facility]) Primary hypertension ([facility]) Unspecified essential hypertension Type 2 diabetes mellitus with complication, with long-term current use of insulin ([facility]) Class 3 severe obesity with serious comorbidity and body mass index (BMI) of 50.0 to 59.9 in adult, unspecified obesity type ([facility]) Tobacco user Tobacco use disorder Other headache syndrome Malignant neoplasm of cervix uteri, unspecified ([facility]) Other specified disorders of adrenal gland ([facility]) Major depressive disorder, single episode, mild (HCC) ([facility]) Major depressive disorder, single episode, mild 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 exposed ([facility]) Chronic respiratory failure, unspecified whether with hypoxia or hypercapnia ([facility]) Disorder of adrenal gland, unspecified ([facility]) Non-pressure chronic ulcer of other part of right lower leg limited to breakdown of skin ([facility]) Non-recurrent acute suppurative otitis media of left ear without spontaneous rupture of tympanic membrane Primary hypertension ([facility])- Primary Unspecified essential hypertension Insomnia Insomnia, unspecified Type 2 diabetes mellitus with complication, with long-term current use of insulin ([facility]) Non-seasonal allergic rhinitis, unspecified trigger Type 2 diabetes mellitus with unspecified complications ([facility]) Anxiety and depression ([facility]) Gastro-esophageal reflux disease without esophagitis Edema, unspecified Edema Diabetic polyneuropathy associated with type 2 diabetes mellitus ([facility]) Chronic obstructive pulmonary disease, unspecified ([facility]) Pulmonary emphysema, unspecified emphysema type ([facility]) Bilateral lower extremity edema Tobacco user Tobacco use disorder Hyperpigmentation of skin Other dyschromia Bilateral lower extremity edema documented [facility] encounter [facility]* Diagnosis Obstructive sleep apnea- Primary Obstructive sleep apnea (adult) (pediatric) Pulmonary emphysema, unspecified emphysema type ([facility]) Primary hypertension ([facility]) Unspecified essential hypertension Type 2 diabetes mellitus with complication, with long-term current use of insulin ([facility]) Anxiety and depression ([facility]) Bilateral lower extremity edema Pulmonary emphysema, unspecified emphysema type ([facility]/HCC)- Primary Primary hypertension ([facility]) Unspecified essential hypertension Class 3 severe obesity with serious comorbidity and body mass index (BMI) of 50.0 to 59.9 in adult, unspecified obesity type ([facility]) Obstructive sleep apnea Obstructive sleep apnea (adult) (pediatric) Pulmonary hypertension ([facility]) Other chronic pulmonary heart diseases Tobacco user Tobacco use disorder Cardiomegaly Primary hypertension ([facility])- Primary Unspecified essential hypertension Gastroesophageal [...] to 59.9 in adult, unspecified obesity type ([facility]) Encounter for subsequent annual wellness visit (AWV) in Medicare patient- Primary Type 2 diabetes mellitus with unspecified complications (CMS/HCC) Pulmonary emphysema, unspecified emphysema type (CMS/HCC) Moderate persistent asthma without complication (CMS/HCC) Primary hypertension (CMS/[facility]) Unspecified essential [...] complication, with long-term current use of insulin ([facility]) Non-seasonal allergic rhinitis, unspecified trigger Type 2 diabetes mellitus with unspecified complications ([facility]) Anxiety and depression ([facility]) Gastro-esophageal reflux disease without esophagitis Edema, unspecified Edema Diabetic polyneuropathy associated with type 2 diabetes mellitus ([facility]) Chronic obstructive pulmonary disease, unspecified ([facility]) Pulmonary emphysema, unspecified emphysema type ([facility]) Bilateral lower extremity edema Tobacco user Tobacco use disorder Hyperpigmentation of skin Other dyschromia Primary hypertension ([facility])- Primary Unspecified essential hypertension Diabetic polyneuropathy associated with type 2 diabetes mellitus ([facility]) Pulmonary emphysema, unspecified emphysema type ([facility]) Critical limb ischemia of right lower extremity ([facility]) PAD (peripheral artery disease) ([facility]) Unspecified peripheral vascular disease Gastroesophageal reflux disease, unspecified whether esophagitis present Bilateral lower extremity edema Venous ulcer of right leg ([facility]) Type 2 diabetes mellitus with complication, with long-term current use of insulin ([facility]) Tobacco user Tobacco use disorder Encounter for smoking cessation counseling Kidney stone Calculus of kidney Adrenal mass 1 cm to 4 cm in diameter ([facility]) Radiculopathy, lumbar region Thoracic or lumbosacral neuritis or radiculitis, unspecified Non-seasonal allergic rhinitis, unspecified trigger Type 2 diabetes mellitus with unspecified complications ([facility]) documented in this encounter [facility] HealthcareEvaluation note* Diagnosis Obstructive sleep apnea- Primary Obstructive sleep apnea (adult) (pediatric) Pulmonary emphysema, unspecified emphysema type ([facility]) Primary hypertension ([facility]) Unspecified essential hypertension Type 2 diabetes mellitus with complication, with long-term current use of insulin ([facility]) Anxiety and depression ([facility]) Bilateral lower extremity edema Pulmonary emphysema, unspecified emphysema type ([facility])- Primary Primary hypertension ([facility]) Unspecified essential hypertension Class 3 severe obesity with serious comorbidity and body mass index (BMI) of 50.0 to 59.9 in adult, unspecified obesity type ([facility]) Obstructive sleep apnea Obstructive sleep apnea (adult) (pediatric) Pulmonary hypertension ([facility]) Other chronic pulmonary heart diseases Tobacco user Tobacco use disorder Cardiomegaly Primary hypertension ([facility])- Primary Unspecified essential hypertension Gastroesophageal [...] to 59.9 in adult, unspecified obesity type ([facility]) Encounter for subsequent annual wellness visit (AWV) in Medicare patient- Primary Type 2 diabetes mellitus with unspecified complications (CMS/HCC) Pulmonary emphysema, unspecified emphysema type (CMS/HCC) Moderate persistent asthma without complication (CMS/HCC) Primary hypertension ([facility]) Unspecified essential [...] complication, with long-term current use of insulin ([facility]) Non-seasonal allergic rhinitis, unspecified trigger Type 2 diabetes mellitus with unspecified complications ([facility]) Anxiety and depression ([facility]) Gastro-esophageal reflux disease without esophagitis Edema, unspecified Edema Diabetic polyneuropathy associated with type 2 diabetes mellitus ([facility]) Chronic obstructive pulmonary disease, unspecified ([facility]) Pulmonary emphysema, unspecified emphysema type ([facility]) Bilateral lower extremity edema Tobacco user Tobacco use disorder Hyperpigmentation of skin Other dyschromia Primary hypertension ([facility])- Primary Unspecified essential hypertension Diabetic polyneuropathy associated with type 2 diabetes mellitus ([facility]) Pulmonary emphysema, unspecified emphysema type ([facility]) Critical limb ischemia of right lower extremity ([facility]) PAD (peripheral artery disease) ([facility]) Unspecified peripheral vascular disease Gastroesophageal reflux disease, unspecified whether esophagitis present Bilateral lower extremity edema Venous ulcer of right leg ([facility]) Type 2 diabetes mellitus with complication, with long-term current use of insulin ([facility] Tobacco user Tobacco use disorder Encounter for smoking cessation counseling Kidney stone Calculus of kidney Adrenal mass 1 cm to 4 cm in diameter ([facility]) Radiculopathy, lumbar region Thoracic or lumbosacral neuritis or radiculitis, unspecified Non-seasonal allergic rhinitis, unspecified trigger Type 2 diabetes mellitus with unspecified complications ([facility] Anxiety and depression ([facility])- Primary Morbid (severe) obesity due to excess calories ([facility]) Body mass index (BMI) 50.0-59.9, adult ([facility]) Malignant neoplasm of cervix uteri, unspecified ([facility]) Diabetic polyneuropathy associated with type 2 diabetes mellitus ([facility] Chronic diastolic heart failure ([facility] Chronic diastolic heart failure Primary hypertension ([facility]) Unspecified essential hypertension 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 ([facility]) Gastroesophageal reflux disease, unspecified whether esophagitis present Bilateral lower extremity edema Type 2 diabetes mellitus with complication, with long-term current use of insulin ([facility]) Tobacco user Tobacco use disorder Mixed hyperlipidemia ([facility]) Mixed hyperlipidemia Gout, unspecified cause, unspecified chronicity, unspecified site Vitamin deficiency Unspecified vitamin deficiency Gastro-esophageal reflux disease without esophagitis Edema, unspecified Edema Hyperlipidemia, unspecified ([facility]) Encounter for smoking cessation counseling Venous ulcer of right leg ([facility]) Antibiotic-induced yeast infection documented in this encounter [facility] HealthcareEvaluation note* Diagnosis Obstructive sleep apnea- Primary Obstructive sleep apnea (adult) (pediatric) Pulmonary emphysema, unspecified emphysema type ([facility]) Primary hypertension ([facility]) Unspecified essential hypertension Type 2 diabetes mellitus with complication, with long-term current use of insulin ([facility]) Anxiety and depression ([facility]) Bilateral lower extremity edema Pulmonary emphysema, unspecified emphysema type ([facility])- Primary Primary hypertension ([facility]) Unspecified essential hypertension Class 3 severe obesity with serious comorbidity and body mass index (BMI) of 50.0 to 59.9 in adult, unspecified obesity type Obstructive sleep apnea Obstructive sleep apnea (adult) (pediatric) Pulmonary hypertension ([facility]) Other chronic pulmonary heart diseases Tobacco user Tobacco use disorder Cardiomegaly Primary hypertension ([facility])- Primary Unspecified essential hypertension Gastroesophageal reflux disease, unspecified whether esophagitis present Type 2 diabetes mellitus with complication, with long-term current use of insulin ([facility]) Mixed hyperlipidemia ([facility]) Mixed hyperlipidemia Tobacco user Tobacco use disorder Encounter for screening mammogram for malignant neoplasm of breast Chronic obstructive pulmonary disease, unspecified Other specified chronic obstructive pulmonary disease Anxiety and depression ([facility]) Edema, unspecified Edema Hyperlipidemia, unspecified ([facility]) Diabetic polyneuropathy associated with type 2 diabetes mellitus ([facility]) Gout, unspecified cause, unspecified chronicity, unspecified site Non-seasonal allergic rhinitis, unspecified trigger Bilateral lower extremity edema COPD exacerbation ([facility]) Obstructive chronic bronchitis with exacerbation Pulmonary emphysema, unspecified emphysema type ([facility]) Venous insufficiency Unspecified venous (peripheral) insufficiency Candidiasis of breast COPD exacerbation ([facility])- Primary Obstructive chronic bronchitis with exacerbation Pulmonary hypertension ([facility]) Other chronic pulmonary heart diseases Class 3 severe obesity with serious comorbidity and body mass index (BMI) of 50.0 to 59.9 in adult, unspecified obesity type Encounter for subsequent annual wellness visit (AWV) in Medicare patient- Primary Type 2 diabetes mellitus with unspecified complications Pulmonary emphysema, unspecified emphysema type ([facility]) Moderate persistent asthma without complication ([facility]) Primary hypertension ([facility]) Unspecified essential hypertension Type 2 diabetes mellitus with complication, with long-term current use of insulin ([facility]) Class 3 severe obesity with serious comorbidity and body mass index (BMI) of 50.0 to 59.9 in adult, unspecified obesity type Tobacco user Tobacco use disorder Other headache syndrome Malignant neoplasm of cervix uteri, unspecified Other specified disorders of adrenal gland Major depressive disorder, single episode, mild (HCC) ([facility]) Major depressive disorder, single episode, mild 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 exposed Chronic respiratory failure, unspecified whether with hypoxia or hypercapnia Disorder of adrenal gland, unspecified Non-pressure chronic ulcer of other part of right lower leg limited to breakdown of skin ([facility]) Non-recurrent acute suppurative otitis media of left ear without spontaneous rupture of tympanic membrane Primary hypertension ([facility])- Primary Unspecified essential hypertension Insomnia Insomnia, unspecified Type 2 diabetes mellitus with complication, with long-term current use of insulin ([facility]) Non-seasonal allergic rhinitis, unspecified trigger Type 2 diabetes mellitus with unspecified complications Anxiety and depression ([facility]) Gastro-esophageal reflux disease without esophagitis Edema, unspecified Edema Diabetic polyneuropathy associated with type 2 diabetes mellitus ([facility]) Chronic obstructive pulmonary disease, unspecified Pulmonary emphysema, unspecified emphysema type ([facility]) Bilateral lower extremity edema Tobacco user Tobacco use disorder Hyperpigmentation of skin Other dyschromia Primary hypertension ([facility])- Primary Unspecified essential hypertension Diabetic polyneuropathy associated with type 2 diabetes mellitus ([facility]) Pulmonary emphysema, unspecified emphysema type ([facility]) Critical limb ischemia of right lower extremity ([facility]) PAD (peripheral artery disease) ([facility]) Unspecified peripheral vascular disease Gastroesophageal reflux disease, unspecified whether esophagitis present Bilateral lower extremity edema Venous ulcer of right leg ([facility]) Type 2 diabetes mellitus with complication, with long-term current use of insulin ([facility]) Tobacco user Tobacco use disorder Encounter for smoking cessation counseling Kidney stone Calculus of kidney Adrenal mass 1 cm to 4 cm in diameter ([facility]) Radiculopathy, lumbar region Thoracic or lumbosacral neuritis or radiculitis, unspecified Non-seasonal allergic rhinitis, unspecified trigger Type 2 diabetes mellitus with unspecified complications Anxiety and depression ([facility])- Primary Morbid (severe) obesity due to excess calories ([facility]) Body mass index (BMI) 50.0-59.9, adult ([facility]) Malignant neoplasm of cervix uteri, unspecified Diabetic polyneuropathy associated with type 2 diabetes mellitus ([facility] Chronic diastolic heart failure ([facility]) Chronic diastolic heart failure Primary hypertension ([facility]) Unspecified essential hypertension 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 Gastroesophageal reflux disease, unspecified whether esophagitis present Bilateral lower extremity edema Type 2 diabetes mellitus with complication, with long-term current use of insulin ([facility]) Tobacco user Tobacco use disorder Mixed hyperlipidemia ([facility]) Mixed hyperlipidemia Gout, unspecified cause, unspecified chronicity, unspecified site Vitamin deficiency Unspecified vitamin deficiency Gastro-esophageal reflux disease without esophagitis Edema, unspecified Edema Hyperlipidemia, unspecified ([facility]) Encounter for smoking cessation counseling Venous ulcer of right leg ([facility]) Antibiotic-induced yeast infection Type 2 diabetes mellitus with hyperglycemia, with long-term current use of insulin ([facility])- Primary Encounter for dietary consultation Vitamin D deficiency Primary hypertension ([facility]) Unspecified essential hypertension Insulin long-term use ([facility]) Encounter for long-term (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 Hyperlipemia, mixed ([facility]) Mixed hyperlipidemia Microalbuminuria Proteinuria Class 3 severe obesity due to excess calories with serious comorbidity and body mass index (BMI) of 50.0 to 59.9 in adult documented in this encounter [facility] HealthcareEvaluation note* Diagnosis Obstructive sleep apnea- Primary Obstructive sleep apnea (adult) (pediatric) Pulmonary emphysema, unspecified emphysema type ([facility]) Primary hypertension ([facility]) Unspecified essential hypertension Type 2 diabetes mellitus with complication, with long-term current use of insulin ([facility]) Anxiety and depression ([facility]) Bilateral lower extremity edema Pulmonary emphysema, unspecified emphysema type ([facility])- Primary Primary hypertension ([facility]) Unspecified essential hypertension Class 3 severe obesity with serious comorbidity and body mass index (BMI) of 50.0 to 59.9 in adult, unspecified obesity type Obstructive sleep apnea Obstructive sleep apnea (adult) (pediatric) Pulmonary hypertension ([facility]) Other chronic pulmonary heart diseases Tobacco user Tobacco use disorder Cardiomegaly Primary hypertension ([facility])- Primary Unspecified essential hypertension Gastroesophageal reflux disease, unspecified whether esophagitis present Type 2 diabetes mellitus with complication, with long-term current use of insulin ([facility]) Mixed hyperlipidemia ([facility]) Mixed hyperlipidemia Tobacco user Tobacco use disorder Encounter for screening mammogram for malignant neoplasm of breast Chronic obstructive pulmonary disease, unspecified Other specified chronic obstructive pulmonary disease Anxiety and depression ([facility]) Edema, unspecified Edema Hyperlipidemia, unspecified ([facility]) Diabetic polyneuropathy associated [...] complication, with long-term current use of insulin ([facility]) Class 3 severe obesity with [...] mellitus with unspecified complications Anxiety and depression ([facility]) Gastro-esophageal reflux disease without esophagitis Edema, unspecified Edema Diabetic polyneuropathy associated with type 2 diabetes mellitus ([facility]) Chronic obstructive pulmonary disease, unspecified Pulmonary emphysema, unspecified emphysema type ([facility]) Bilateral lower extremity edema Tobacco user Tobacco use disorder Hyperpigmentation of skin Other dyschromia Primary hypertension ([facility])- Primary Unspecified essential hypertension Diabetic polyneuropathy associated with type 2 diabetes mellitus ([facility]) Pulmonary emphysema, unspecified emphysema type ([facility]) Critical limb ischemia of right lower extremity ([facility]) PAD (peripheral artery disease) ([facility]) Unspecified peripheral vascular disease Gastroesophageal reflux disease, unspecified whether esophagitis present Bilateral lower extremity edema Venous ulcer of right leg ([facility]) Type 2 diabetes mellitus with complication, with long-term current use of insulin ([facility]) Tobacco user Tobacco use disorder Encounter for smoking cessation counseling Kidney stone Calculus of kidney Adrenal mass 1 cm to 4 cm in diameter ([facility]) Radiculopathy, lumbar region Thoracic or lumbosacral neuritis or radiculitis, unspecified Non-seasonal allergic rhinitis, unspecified trigger Type 2 diabetes mellitus with unspecified complications Anxiety and depression ([facility])- Primary Morbid (severe) obesity due to excess calories ([facility]) Body mass index (BMI) 50.0-59.9, adult ([facility]) Malignant neoplasm of cervix uteri, unspecified Diabetic polyneuropathy associated with type 2 diabetes mellitus ([facility] Chronic diastolic heart failure ([facility] Chronic diastolic heart failure Primary hypertension ([facility]) Unspecified essential hypertension 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 Gastroesophageal reflux disease, unspecified whether esophagitis present Bilateral lower extremity edema Type 2 diabetes mellitus with complication, with long-term current use of insulin ([facility]) Tobacco user Tobacco use disorder Mixed hyperlipidemia ([facility]) Mixed hyperlipidemia Gout, unspecified cause, unspecified chronicity, unspecified site Vitamin deficiency Unspecified vitamin deficiency Gastro-esophageal reflux disease without esophagitis Edema, unspecified Edema Hyperlipidemia, unspecified ([facility]) Encounter for smoking cessation counseling Venous ulcer of right leg ([facility]) Antibiotic-induced yeast infection Chronic obstructive pulmonary disease, unspecified documented in this encounter [facility] HealthcareEvaluation note* Diagnosis Obstructive sleep apnea- Primary Obstructive sleep apnea (adult) (pediatric) Pulmonary emphysema, unspecified emphysema type ([facility]) Primary hypertension ([facility]) Unspecified essential hypertension Type 2 diabetes mellitus with complication, with long-term current use of insulin ([facility]) Anxiety and depression ([facility]) Bilateral lower extremity edema Pulmonary emphysema, unspecified emphysema type ([facility] [place] Primary Primary hypertension ([facility] [place]) Unspecified essential hypertension Class 3 severe obesity with serious comorbidity and body mass index (BMI) of 50.0 to 59.9 in adult, unspecified obesity type Obstructive sleep apnea Obstructive sleep apnea (adult) (pediatric) Pulmonary hypertension ([facility] [place]) Other chronic pulmonary heart diseases Tobacco user Tobacco use disorder Cardiomegaly Primary hypertension ([facility] [place])- Primary Unspecified essential hypertension Gastroesophageal reflux disease, unspecified whether esophagitis present Type 2 diabetes mellitus with complication, with long-term current use of insulin ([facility] [place]) Mixed hyperlipidemia ([facility] [place]) Mixed hyperlipidemia Tobacco user Tobacco use disorder Encounter for screening mammogram for malignant neoplasm of breast Chronic obstructive pulmonary disease, unspecified Other specified chronic obstructive pulmonary disease Anxiety and depression ([facility] [place]) Edema, unspecified Edema Hyperlipidemia, unspecified ([facility] [place]) Diabetic polyneuropathy associated with type 2 diabetes mellitus ([facility] [place]) Gout, unspecified cause, unspecified chronicity, unspecified site Non-seasonal allergic rhinitis, unspecified trigger Bilateral lower extremity edema COPD exacerbation ([facility] [place]) Obstructive chronic bronchitis with exacerbation Pulmonary emphysema, unspecified emphysema type ([facility] [place]) Venous insufficiency Unspecified venous (peripheral) insufficiency Candidiasis of breast COPD exacerbation ([facility] [place])- Primary Obstructive chronic bronchitis with exacerbation Pulmonary hypertension ([facility] [place]) Other chronic pulmonary heart diseases Class 3 severe obesity with serious comorbidity and body mass index (BMI) of 50.0 to 59.9 in adult, unspecified obesity type Encounter for subsequent annual wellness visit (AWV) in Medicare patient- Primary Type 2 diabetes mellitus with unspecified complications Pulmonary emphysema, unspecified emphysema type ([facility] [place]) Moderate persistent asthma without complication ([facility] [place]) Primary hypertension ([facility] [place]) Unspecified essential hypertension Type 2 diabetes mellitus with complication, with long-term current use of insulin ([facility] [place]) Class 3 severe obesity with serious comorbidity and body mass index (BMI) of 50.0 to 59.9 in adult, unspecified obesity type Tobacco user Tobacco use disorder Other headache syndrome Malignant neoplasm of cervix uteri, unspecified Other specified disorders of adrenal gland Major depressive disorder, single episode, mild (HCC) ([facility] [place]) Major depressive disorder, single episode, mild 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 exposed Chronic respiratory failure, unspecified whether with hypoxia or hypercapnia Disorder of adrenal gland, unspecified Non-pressure chronic ulcer of other part of right lower leg limited to breakdown of skin ([facility] [place]) Non-recurrent acute suppurative otitis media of left ear without spontaneous rupture of tympanic membrane Primary hypertension ([facility] [place])- Primary Unspecified essential hypertension Insomnia Insomnia, unspecified Type 2 diabetes mellitus with complication, with long-term current use of insulin ([facility] [place]) Non-seasonal allergic rhinitis, unspecified trigger Type 2 diabetes mellitus with unspecified complications Anxiety and depression ([facility] [place]) Gastro-esophageal reflux disease without esophagitis Edema, unspecified Edema Diabetic polyneuropathy associated with type 2 diabetes mellitus ([facility] [place]) Chronic obstructive pulmonary disease, unspecified Pulmonary emphysema, unspecified emphysema type ([facility] [place]) Bilateral lower extremity edema Tobacco user Tobacco use disorder Hyperpigmentation of skin Other dyschromia Primary hypertension ([facility] [place])- Primary Unspecified essential hypertension Diabetic polyneuropathy associated with type 2 diabetes mellitus ([facility] [place]) Pulmonary emphysema, unspecified emphysema type ([facility] [place]) Critical limb ischemia of right lower extremity ([facility] [place]) PAD (peripheral artery disease) ([facility] [place]) Unspecified peripheral vascular disease Gastroesophageal reflux disease, unspecified whether esophagitis present Bilateral lower extremity edema Venous ulcer of right leg ([facility] [place]) Type 2 diabetes mellitus with complication, with long-term current use of insulin ([facility] [place]) Tobacco user Tobacco use disorder Encounter for smoking cessation counseling Kidney stone Calculus of kidney Adrenal mass 1 cm to 4 cm in diameter ([facility] [place]) Radiculopathy, lumbar region Thoracic or lumbosacral neuritis or radiculitis, unspecified Non-seasonal allergic rhinitis, unspecified trigger Type 2 diabetes mellitus with unspecified complications Anxiety and depression ([facility] [place])- Primary Morbid (severe) obesity due to excess calories ([facility] [place]) Body mass index (BMI) 50.0-59.9, adult ([facility] [place]) Malignant neoplasm of cervix uteri, unspecified Diabetic polyneuropathy associated with type 2 diabetes mellitus ([facility] [place] Chronic diastolic heart failure ([facility] [place]) Chronic diastolic heart failure Primary hypertension ([facility] [place]) Unspecified essential hypertension 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 Gastroesophageal reflux disease, unspecified whether esophagitis present Bilateral lower extremity edema Type 2 diabetes mellitus with complication, with long-term current use of insulin ([facility] [place]) Tobacco user Tobacco use disorder Mixed hyperlipidemia ([facility] [place]) Mixed hyperlipidemia Gout, unspecified cause, unspecified chronicity, unspecified site Vitamin deficiency Unspecified vitamin deficiency Gastro-esophageal reflux disease without esophagitis Edema, unspecified Edema Hyperlipidemia, unspecified ([facility] [place]) Encounter for smoking cessation counseling Venous ulcer of right leg ([facility] [place]) Antibiotic-induced yeast infection Primary hypertension ([facility] [place])- Primary Unspecified essential hypertension Diabetic polyneuropathy associated with type 2 diabetes mellitus ([facility] [place]) Chronic diastolic heart failure ([facility] [place]) Chronic diastolic heart failure Bilateral lower extremity edema Morbid (severe) obesity due to excess calories ([facility] [place]) Type 2 diabetes mellitus with complication, with long-term current use of insulin ([facility] [place]) Anxiety and depression ([facility]) Cigarette nicotine dependence without complication Encounter for screening mammogram for malignant neoplasm of breast Insomnia Insomnia, unspecified Non-seasonal allergic rhinitis, unspecified trigger Type 2 diabetes mellitus with unspecified complications Vitamin D deficiency, unspecified Gastro-esophageal reflux disease without esophagitis PAD (peripheral artery disease) ([facility] [place]) Unspecified peripheral vascular disease Gastroesophageal reflux disease, unspecified whether esophagitis present Venous ulcer of right leg ([facility] [place]) documented in this encounter [facility] HealthcareEvaluation note* Diagnosis Obstructive sleep apnea- Primary Obstructive sleep apnea (adult) (pediatric) Pulmonary emphysema, unspecified emphysema type (HCC) Primary hypertension Unspecified essential hypertension Type 2 diabetes mellitus with complication, with long-term current use of insulin ([facility]) Anxiety and depression Bilateral lower extremity edema Pulmonary emphysema, unspecified emphysema type (HCC)- Primary Primary hypertension Unspecified essential hypertension Class 3 severe obesity with serious comorbidity and body mass index (BMI) of 50.0 to 59.9 in adult, unspecified obesity type ([facility] [place]) Obstructive sleep apnea Obstructive sleep apnea (adult) (pediatric) Pulmonary hypertension (HCC) Other chronic pulmonary heart diseases Tobacco user Tobacco use disorder Cardiomegaly Primary hypertension- Primary Unspecified essential hypertension Gastroesophageal reflux disease, unspecified whether esophagitis present Type 2 diabetes mellitus with complication, with long-term current use of insulin ([facility]) Mixed hyperlipidemia Mixed hyperlipidemia Tobacco user Tobacco [...] to 59.9 in adult, unspecified obesity type ([facility]) Encounter for subsequent annual wellness visit (AWV) in Medicare patient- Primary Type 2 diabetes mellitus with unspecified complications (HCC) Pulmonary emphysema, unspecified emphysema type (HCC) Moderate persistent asthma without complication (HCC) Primary hypertension Unspecified essential hypertension Type 2 diabetes mellitus with complication, with long-term current use of insulin ([facility]) Class 3 severe obesity with serious comorbidity and body mass index (BMI) of 50.0 to 59.9 in adult, unspecified obesity type ([facility] [place]) Tobacco user Tobacco use disorder [...] polyneuropathy associated with type 2 diabetes mellitus ([facility]) Pulmonary emphysema, unspecified emphysema type ([facility]) Critical limb ischemia of right lower extremity ([facility] [place]) PAD (peripheral artery disease) Unspecified peripheral vascular disease Gastroesophageal reflux disease, unspecified whether esophagitis present Bilateral lower extremity edema Venous ulcer of right leg ([facility]) Type 2 diabetes mellitus with complication, with long-term current use of insulin ([facility]) Tobacco user Tobacco use disorder Encounter for smoking cessation counseling Kidney stone Calculus of kidney Adrenal mass 1 cm to 4 cm in diameter ([facility]) Radiculopathy, lumbar region Thoracic or lumbosacral neuritis or radiculitis, unspecified Non-seasonal allergic rhinitis, unspecified trigger Type 2 diabetes mellitus with unspecified complications ([facility]) Anxiety and depression- Primary Morbid (severe) obesity due to excess calories ([facility]) Body mass index (BMI) 50.0-59.9, adult ([facility]) Malignant neoplasm of cervix uteri, unspecified ([facility]) Diabetic polyneuropathy associated with type 2 diabetes mellitus ([facility]) Chronic diastolic heart failure (HCC) Chronic diastolic heart failure Primary hypertension Unspecified essential hypertension 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 ([facility]) Gastroesophageal reflux disease, unspecified whether esophagitis present Bilateral lower extremity edema Type 2 diabetes mellitus with complication, with long-term current use of insulin ([facility]) Tobacco user Tobacco use disorder Mixed hyperlipidemia Mixed hyperlipidemia Gout, unspecified cause, unspecified chronicity, unspecified site Vitamin deficiency Unspecified vitamin deficiency Gastro-esophageal reflux disease without esophagitis Edema, unspecified Edema Hyperlipidemia, unspecified Encounter for smoking cessation counseling Venous ulcer of right leg ([facility]) Antibiotic-induced yeast infection Primary hypertension- Primary Unspecified essential hypertension Diabetic polyneuropathy associated with type 2 diabetes mellitus (HCC) Chronic diastolic heart failure (HCC) Chronic diastolic heart failure Bilateral lower extremity edema Morbid (severe) obesity due to excess calories ([facility]) Type 2 diabetes mellitus with complication, with long-term current use of insulin ([facility]) Anxiety and depression Cigarette nicotine dependence without complication Encounter for screening mammogram for malignant neoplasm of breast Insomnia Insomnia, unspecified Non-seasonal allergic rhinitis, unspecified trigger Type 2 diabetes mellitus with unspecified complications ([facility]) Vitamin D deficiency, unspecified Gastro-esophageal reflux disease without esophagitis PAD (peripheral artery disease) Unspecified peripheral vascular disease Gastroesophageal reflux disease, unspecified whether esophagitis present Venous ulcer of right leg ([facility]) Cellulitis of left lower extremity- Primary COPD exacerbation (HCC) Obstructive chronic bronchitis with exacerbation Primary hypertension Unspecified essential hypertension Pulmonary hypertension (HCC) Other chronic pulmonary heart diseases Morbid (severe) obesity due to excess calories ([facility] [place]) Type 2 diabetes mellitus with complication, with long-term current use of insulin ([facility]) Anxiety and depression Fever, unspecified fever cause Hyperlipidemia, unspecified Tobacco user Tobacco use disorder Encounter for smoking cessation counseling documented in this encounter [facility] HealthcareEvaluation note* Diagnosis Obstructive sleep apnea- Primary Obstructive sleep apnea (adult) (pediatric) Pulmonary emphysema, unspecified emphysema type ([facility] [place]) Primary hypertension ([facility] [place]) Unspecified essential hypertension Type 2 diabetes mellitus with complication, with long-term current use of insulin ([facility] [place]) Anxiety and depression ([facility] [place]) Bilateral lower extremity edema Pulmonary emphysema, unspecified emphysema type ([facility] [place]/HCC)- Primary Primary hypertension ([facility] [place]) Unspecified essential hypertension Class 3 severe obesity with serious comorbidity and body mass index (BMI) of 50.0 to 59.9 in adult, unspecified obesity type Obstructive sleep apnea Obstructive sleep apnea (adult) (pediatric) Pulmonary hypertension ([facility] [place]) Other chronic pulmonary heart diseases Tobacco user Tobacco use disorder Cardiomegaly Primary hypertension ([facility] [place])- Primary Unspecified essential hypertension Gastroesophageal reflux disease, unspecified whether esophagitis present Type 2 diabetes mellitus with complication, with long-term current use of insulin ([facility] [place]) Mixed hyperlipidemia ([facility] [place]) Mixed hyperlipidemia Tobacco user Tobacco use disorder Encounter for screening mammogram for malignant neoplasm of breast Chronic obstructive pulmonary disease, unspecified Other specified chronic obstructive pulmonary disease Anxiety and depression ([facility] [place]) Edema, unspecified Edema Hyperlipidemia, unspecified ([facility] [place]) Diabetic polyneuropathy associated with type 2 diabetes mellitus ([facility] [place]) Gout, unspecified cause, unspecified chronicity, unspecified site Non-seasonal allergic rhinitis, unspecified trigger Bilateral lower extremity edema COPD exacerbation ([facility] [place]) Obstructive chronic bronchitis with exacerbation Pulmonary emphysema, unspecified emphysema type ([facility] [place]/HCC) Venous insufficiency Unspecified venous (peripheral) insufficiency Candidiasis of breast COPD exacerbation ([facility] [place])- Primary Obstructive chronic bronchitis with exacerbation Pulmonary hypertension ([facility] [place]) Other chronic pulmonary heart diseases Class 3 severe obesity with serious comorbidity and body mass index (BMI) of 50.0 to 59.9 in adult, unspecified obesity type Encounter for subsequent annual wellness visit (AWV) in Medicare patient- Primary Type 2 diabetes mellitus with unspecified complications Pulmonary emphysema, unspecified emphysema type ([facility] [place]) Moderate persistent asthma without complication ([facility]) Primary hypertension ([facility] [place]) Unspecified essential hypertension Type 2 diabetes mellitus with complication, with long-term current use of insulin ([facility] [place]) Class 3 severe obesity with serious comorbidity and body mass index (BMI) of 50.0 to 59.9 in adult, unspecified obesity type Tobacco user Tobacco use disorder Other headache syndrome Malignant neoplasm of cervix uteri, unspecified Other specified disorders of adrenal gland Major depressive disorder, single episode, mild (HCC) ([facility] [place]) Major depressive disorder, single episode, mild 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 exposed Chronic respiratory failure, unspecified whether with hypoxia or hypercapnia Disorder of adrenal gland, unspecified Non-pressure chronic ulcer of other part of right lower leg limited to breakdown of skin ([facility] [place]) Non-recurrent acute suppurative otitis media of left ear without spontaneous rupture of tympanic membrane Primary hypertension ([facility] [place])- Primary Unspecified essential hypertension Insomnia Insomnia, unspecified Type 2 diabetes mellitus with complication, with long-term current use of insulin ([facility] [place]) Non-seasonal allergic rhinitis, unspecified trigger Type 2 diabetes mellitus with unspecified complications Anxiety and depression ([facility] [place]) Gastro-esophageal reflux disease without esophagitis Edema, unspecified Edema Diabetic polyneuropathy associated with type 2 diabetes mellitus ([facility] [place]) Chronic obstructive pulmonary disease, unspecified Pulmonary emphysema, unspecified emphysema type (CMS/HCC) Bilateral lower extremity edema Tobacco user Tobacco use disorder Hyperpigmentation of skin Other dyschromia Primary hypertension ([facility])- Primary Unspecified essential hypertension Diabetic polyneuropathy associated with type 2 diabetes mellitus ([facility]) Pulmonary emphysema, unspecified emphysema type ([facility] [place]HCC) Critical limb ischemia of right lower extremity ([facility] [place]) PAD (peripheral artery disease) ([facility] [place]) Unspecified peripheral vascular disease Gastroesophageal reflux disease, unspecified whether esophagitis present Bilateral lower extremity edema Venous ulcer of right leg ([facility] [place]) Type 2 diabetes mellitus with complication, with long-term current use of insulin ([facility] [place]) Tobacco user Tobacco use disorder Encounter for smoking cessation counseling Kidney stone Calculus of kidney Adrenal mass 1 cm to 4 cm in diameter ([facility] [place]) Radiculopathy, lumbar region Thoracic or lumbosacral neuritis or radiculitis, unspecified Non-seasonal allergic rhinitis, unspecified trigger Type 2 diabetes mellitus with unspecified complications Anxiety and depression ([facility] [place])- Primary Morbid (severe) obesity due to excess calories ([facility] [place]) Body mass index (BMI) 50.0-59.9, adult ([facility] [place]) Malignant neoplasm of cervix uteri, unspecified Diabetic polyneuropathy associated with type 2 diabetes mellitus ([facility] [place]) Chronic diastolic heart failure ([facility] [place]) Chronic diastolic heart failure Primary hypertension ([facility] [place]) Unspecified essential hypertension 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 Gastroesophageal reflux disease, unspecified whether esophagitis present Bilateral lower extremity edema Type 2 diabetes mellitus with complication, with long-term current use of insulin ([facility]) Tobacco user Tobacco use disorder Mixed hyperlipidemia ([facility]) Mixed hyperlipidemia Gout, unspecified cause, unspecified chronicity, unspecified site Vitamin deficiency Unspecified vitamin deficiency Gastro-esophageal reflux disease without esophagitis Edema, unspecified Edema Hyperlipidemia, unspecified ([facility]) Encounter for smoking cessation counseling Venous ulcer of right leg ([facility]) Antibiotic-induced yeast infection Primary hypertension ([facility])- Primary Unspecified essential hypertension Diabetic polyneuropathy associated with type 2 diabetes mellitus ([facility]) Chronic diastolic heart failure ([facility]) Chronic diastolic heart failure Bilateral lower extremity edema Morbid (severe) obesity due to excess calories ([facility]) Type 2 diabetes mellitus with complication, with long-term current use of insulin ([facility]) Anxiety and depression ([facility]) Cigarette nicotine dependence without complication Encounter for screening mammogram for malignant neoplasm of breast Insomnia Insomnia, unspecified Non-seasonal allergic rhinitis, unspecified trigger Type 2 diabetes mellitus with unspecified complications Vitamin D deficiency, unspecified Gastro-esophageal reflux disease without esophagitis PAD (peripheral artery disease) ([facility]) Unspecified peripheral vascular disease Gastroesophageal reflux disease, unspecified whether esophagitis present Venous ulcer of right leg ([facility]) Cellulitis of left lower extremity- Primary COPD exacerbation ([facility]) Obstructive chronic bronchitis with exacerbation Primary hypertension ([facility]) Unspecified essential hypertension Pulmonary hypertension ([facility]) Other chronic pulmonary heart diseases Morbid (severe) obesity due to excess calories (CMS/HCC) Type 2 diabetes mellitus with complication, with long-term current use of insulin (CMS/HCC) Anxiety and depression (CMS/[facility]) Fever, unspecified fever cause documented in this [...] to 59.9 in adult, unspecified obesity type ([facility]) Obstructive sleep apnea Obstructive sleep [...] to 59.9 in adult, unspecified obesity type ([facility]) Encounter for subsequent annual wellness [...] to 59.9 in adult, unspecified obesity type ([facility]) Tobacco user Tobacco use disorder Other headache syndrome Malignant neoplasm of cervix uteri, unspecified ([facility]) Other specified disorders of adrenal gland ([facility]) Major depressive disorder, single episode, mild Major depressive disorder, single episode, mild 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 exposed ([facility]) Chronic respiratory failure, unspecified whether with hypoxia or hypercapnia ([facility]) Disorder of adrenal gland, unspecified ([facility]) Non-pressure chronic ulcer of other part of right lower leg limited to breakdown of skin ([facility]) Non-recurrent acute suppurative otitis media of left ear without spontaneous rupture of tympanic membrane Primary hypertension- Primary Unspecified essential hypertension Insomnia Insomnia, unspecified Type 2 diabetes mellitus with complication, with long-term current use of insulin ([facility]) Non-seasonal allergic rhinitis, unspecified trigger Type 2 diabetes mellitus with unspecified complications ([facility]) Anxiety and depression Gastro-esophageal reflux disease without esophagitis Edema, unspecified Edema Diabetic polyneuropathy associated with type 2 diabetes mellitus ([facility]) Chronic obstructive pulmonary disease, unspecified ([facility]) Pulmonary emphysema, unspecified emphysema type ([facility]) Bilateral lower extremity edema Tobacco user Tobacco use disorder Hyperpigmentation of skin Other dyschromia Primary hypertension- Primary Unspecified essential hypertension Diabetic polyneuropathy associated with type 2 diabetes mellitus ([facility]) Pulmonary emphysema, unspecified emphysema type ([facility]) Critical limb ischemia of right lower extremity ([facility]) PAD (peripheral artery disease) Unspecified peripheral vascular disease Gastroesophageal reflux disease, unspecified whether esophagitis present Bilateral lower extremity edema Venous ulcer of right leg ([facility]) Type 2 diabetes mellitus with complication, with long-term current use of insulin ([facility]) Tobacco user Tobacco use disorder Encounter for smoking cessation counseling Kidney stone Calculus of kidney Adrenal mass 1 cm to 4 cm in diameter ([facility]) Radiculopathy, lumbar region Thoracic or lumbosacral neuritis or radiculitis, unspecified Non-seasonal allergic rhinitis, unspecified trigger Type 2 diabetes mellitus with unspecified complications ([facility]) Anxiety and depression- Primary Morbid (severe) obesity due to excess calories ([facility]) Body mass index (BMI) 50.0-59.9, adult ([facility]) Malignant neoplasm of cervix uteri, unspecified ([facility]) Diabetic polyneuropathy associated with type 2 diabetes mellitus ([facility]) Chronic diastolic heart failure (HCC) Chronic diastolic [...] Morbid (severe) obesity due to excess calories ([facility]) Type 2 diabetes mellitus with [...] Morbid (severe) obesity due to excess calories ([facility]) Type 2 diabetes mellitus with [...] polyneuropathy associated with type 2 diabetes mellitus ([facility]) Pulmonary emphysema, unspecified emphysema type ([facility]) Moderate persistent asthma without complication (HCC) Insomnia Insomnia, unspecified Non-seasonal allergic rhinitis, unspecified trigger Type 2 diabetes mellitus with unspecified complications (HCC) Anxiety and depression Antibiotic-induced yeast infection Chronic obstructive pulmonary disease, unspecified (HCC) Hyperlipidemia, unspecified Vaginal yeast infection Candidiasis of vulva and vagina Morbid (severe) obesity due to excess calories ([facility]) Type 2 diabetes mellitus with hyperglycemia, with long-term current use of insulin (HCC) documented in this encounter [facility] HealthcareEvaluation note* Diagnosis Obstructive sleep [...] to 59.9 in adult, unspecified obesity type ([facility]) Obstructive sleep apnea Obstructive sleep [...] to 59.9 in adult, unspecified obesity type ([facility]) Encounter for subsequent annual wellness [...] to 59.9 in adult, unspecified obesity type ([facility]) Tobacco user Tobacco use disorder Other headache syndrome Malignant neoplasm of cervix uteri, unspecified (HCC) Other specified disorders of adrenal gland ([facility]) Major depressive disorder, single episode, mild Major depressive disorder, single episode, mild 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 exposed ([facility]) Chronic respiratory failure, unspecified whether with hypoxia or hypercapnia ([facility]) Disorder of adrenal gland, unspecified ([facility]) Non-pressure chronic ulcer of other part of right lower leg limited to breakdown of skin ([facility]) Non-recurrent acute suppurative otitis media of left ear without spontaneous rupture of tympanic membrane Primary hypertension- Primary Unspecified essential hypertension Insomnia Insomnia, unspecified Type 2 diabetes mellitus with complication, with long-term current use of insulin ([facility]) Non-seasonal allergic rhinitis, unspecified trigger Type 2 diabetes mellitus with unspecified complications ([facility]) Anxiety and depression Gastro-esophageal reflux disease without esophagitis Edema, unspecified Edema Diabetic polyneuropathy associated with type 2 diabetes mellitus ([facility]) Chronic obstructive pulmonary disease, unspecified ([facility]) Pulmonary emphysema, unspecified emphysema type ([facility]) Bilateral lower extremity edema Tobacco user Tobacco use disorder Hyperpigmentation of skin Other dyschromia Primary hypertension- Primary Unspecified essential hypertension Diabetic polyneuropathy associated with type 2 diabetes mellitus ([facility]) Pulmonary emphysema, unspecified emphysema type ([facility]) Critical limb ischemia of right lower extremity ([facility]) PAD (peripheral artery disease) Unspecified peripheral vascular disease Gastroesophageal reflux disease, unspecified whether esophagitis present Bilateral lower extremity edema Venous ulcer of right leg ([facility]) Type 2 diabetes mellitus with complication, with long-term current use of insulin ([facility]) Tobacco user Tobacco use disorder Encounter for smoking cessation counseling Kidney stone Calculus of kidney Adrenal mass 1 cm to 4 cm in diameter ([facility]) Radiculopathy, lumbar region Thoracic or lumbosacral neuritis or radiculitis, unspecified Non-seasonal allergic rhinitis, unspecified trigger Type 2 diabetes mellitus with unspecified complications ([facility]) Anxiety and depression- Primary Morbid (severe) obesity due to excess calories ([facility]) Body mass index (BMI) 50.0-59.9, adult ([facility]) Malignant neoplasm of cervix uteri, unspecified ([facility]) Diabetic polyneuropathy associated with type 2 diabetes mellitus ([facility]) Chronic diastolic heart failure (HCC) Chronic diastolic [...] Morbid (severe) obesity due to excess calories ([facility]) Type 2 diabetes mellitus with [...] Morbid (severe) obesity due to excess calories ([facility]) Type 2 diabetes mellitus with [...] Morbid (severe) obesity due to excess calories ([facility]) Encounter for dietary consultation- Primary Type 2 diabetes mellitus with hyperglycemia, with long-term current use of insulin (HCC) Vitamin D deficiency Primary hypertension Unspecified essential hypertension Insulin long-term use ([facility]) Encounter for long-term (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 Hyperlipemia, mixed Mixed hyperlipidemia Microalbuminuria Proteinuria Class 3 severe obesity due to excess calories with serious comorbidity and body mass index (BMI) of 50.0 to 59.9 in adult ([facility]) documented in this encounter [facility] [...] History sepsis 2010 Hospitalization History SEE ABOVE [employer] Other Hospital course Narrative No data available for this section [facility] progress note No data available for this section [facility] reason for referral (narrative) , Referral to Dr. 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 Expl anation Advance Directives and Living Will Power of Card Hanger Summary Purpose Family History No Family History Records FoundNo Family History Records FoundNo Family History Records FoundNo Family History Records Found No data available for this section No Family History Records FoundNo Family History Records Found Additional Source Comments INFORMATION SOURCE (unrecogn ized section and content) DATE CREATED AUTHOR 10/30/2019 [facility] DATE CREATED AUTHOR AUTHOR'S ORGANIZ ATION 09/15/2020 [facility] DATE CREATED AUTHOR AUTHOR'S ORGANIZ ATION 12/19/2022 [facility] DATE CREATED AUTHOR AUTHOR'S ORGANIZ ATION 06/03/2024 [facility] DATE CREATED AUTHOR AUTHOR'S ORGANIZ ATION 01/30/[address] [facility] EPIC DATE CREATED AUTHOR AUTHOR'S ORGANIZ ATION 02/06/2025 [facility] Care Team (unrecognized sect ion and content) Packer Relationship Specialty Start Date End Date Ty Amin MD PCP - General Family Medicine 01/05/23 Packer Relationship Specialty Start Date End Date Ty Amin MD PCP - General Family Medicine 01/05/23 Packer Relationship Specialty Start Date End Date Ty Amin MD [address] [place] [address] PCP - General Family Medicine 09/20/23 Mckayla Blas NP [address] [place] [address] PCP - [facility] 09/07/23 09/05/90 Mckayla Blas NP [address] [place] [address] Nurse Practitioner Family Medicine 09/20/23 Packer Relationship Specialty Start Date End Date Ty Amin MD [address] [place] [address] PCP - General Family Medicine 09/20/23 Mckayla Blas NP [address] [place] [address] PCP - [facility] 09/07/23 09/05/90 Mckayla Blas NP [address] [place] [address] Nurse Practitioner Family Medicine 09/20/23 Packer Relationship Specialty Start Date End Date Ty Amin MD [address] [place] [address] PCP - General Family Medicine 09/20/23 Mckayla Blas NP [address] [place] [address] PCP [facility] 09/07/23 09/05/90 Mckayla Blas NP [address] [place] [address] Nurse Practitioner Family Medicine 09/20/23 Packer Relationship Specialty Start Date End Date Ty Amin MD [address] [place] [address] PCP - General Family [facility] 09/20/23 Mckayla Blas NP [address] [place] [address] PCP [facility] 09/07/23 09/05/90 Mckayla Blas NP [address] [place] [address] Nurse Practitioner Family Medicine 09/20/23 Packer Relationship Specialty Start Date End Date Ty Amin MD [address] [place] [address] PCP - General Family Medicine 09/20/23 Mckayla Blas NP [address] [place] [address] PCP - [facility] 09/07/23 09/05/90 Mckayla Blas NP [address] [place] [address] Nurse Practitioner Family Medicine 09/20/23 Packer Relationship Specialty Start Date End Date Ty Amin MD [address] [place] [address] PCP - General Family Medicine 09/20/23 Mckayla Blas NP [address] [place] [address] [facility] 09/07/23 09/05/90 Mckayla Blas NP [address] [place] [address] Nurse Practitioner Family Medicine 09/20/23 Packer Relationship Specialty Start Date End Date Ty Amin MD [address] [place] [address] PCP - General Family Medicine 09/20/23 Mckayla Blas NP [address] [place] [address] [facility] 09/07/23 09/05/90 Mckayla Blas NP [address] [place] [address] Nurse Practitioner Family Medicine 09/20/23 Packer Relationship Specialty Start Date End Date Ty Amin MD [address] [place] [address] PCP - General Family Medicine 09/20/23 Mckayla Blas NP [address] [place] [address] PCP [facility] 09/07/23 09/05/90 Mckayla Blas NP [address] [place] [address] Nurse Practitioner Family Medicine 09/20/23 Packer Relationship Specialty Start Date End Date Ty Amin MD [address] [place] [address] PCP - General Family [facility] 09/20/23 Mckayla Blas NP [address] [place] [address] PCP [facility] 09/07/23 09/05/90 Mckayla Blas NP [address] [place] [address] Nurse Practitioner Family Medicine 09/20/23 Packer Relationship Specialty Start Date End Date Ty Amin MD [address] [place] [address] PCP - General Family Medicine 09/20/23 Mckayla Blas NP [address] [place] [address] PCP - [facility] 09/07/23 09/05/90 Mckayla Blas NP [address] [place] [address] Nurse Practitioner Family Medicine 09/20/23 Packer Relationship Specialty Start Date End Date Ty Amin MD [address] [place] [address] PCP - General Family Medicine 09/20/23 Mckayla Blas NP [address] [place] [address] [facility] 09/07/23 09/05/90 Mckayla Blas NP [address] [place] [address] Nurse Practitioner Family Medicine 09/20/23 Packer Relationship Specialty Start Date End Date Ty Amin MD [address] [place] [address] PCP - General Family Medicine 09/20/23 Mckayla Blas NP [address] [place] [address] [facility] 09/07/23 09/05/90 Mckayla Blas NP [address] [place] [address] Nurse Practitioner Family Medicine 09/20/23 Packer Relationship Specialty Start Date End Date Ty Amin MD [address] [place] [address] PCP - General Family Medicine 09/20/23 Mckayla Blas NP [address] [place] [address] PCP [facility] 09/07/23 09/05/90 Mckayla Blas NP [address] [place] [address] Nurse Practitioner Family Medicine 09/20/23 Packer Relationship Specialty Start Date End Date Ty Amin MD [address] [place] [address] PCP - General Family [facility] 09/20/23 Mckayla Blas NP [address] [place] [address] PCP [facility] 09/07/23 09/05/90 Mckayla Blas NP [address] [place] [address] Nurse Practitioner Family Medicine 09/20/23 Packer Relationship Specialty Start Date End Date Ty Amin MD [address] [place] [address] PCP - General Family Medicine 09/20/23 Mkcayla Blas NP [address] [place] [address] PCP - [facility] 09/07/23 09/05/90 Mckayla Blas NP [address] [place] [address] Nurse Practitioner Family Medicine 09/20/23 Packer Relationship Specialty Start Date End Date Ty Amin MD [address] [place] [address] PCP - General Family Medicine 09/20/23 Mckayla Blas NP [address] [place] [address] [facility] 09/07/23 09/05/90 Mckayla Blas NP [address] [place] [address] Nurse Practitioner Family Medicine 09/20/23 Packer Relationship Specialty Start Date End Date Ty Amin MD [address] [place] [address] PCP - General Family Medicine 09/20/23 Mckayla Blas NP [address] [place] [address] [facility] 09/07/23 09/05/90 Mckayla Blas NP [address] [place] [address] Nurse Practitioner Family Medicine 09/20/23 Packer Relationship Specialty Start Date End Date Ty Amin MD [address] [place] [address] PCP - General Family Medicine 09/20/23 Mckayla Blas NP [address] [place] [address] PCP [facility] 09/07/23 09/05/90 Mckayla Blas NP [address] [place] [address] Nurse Practitioner Family Medicine 09/20/23 Packer Relationship Specialty Start Date End Date Ty Amin MD [address] [place] [address]1002 PCP - General Family [facility] 09/20/23 Mckayla Blas NP [address] [place] [address] PCP [facility] 09/07/23 09/05/90 Mckayla Blas NP [address] [place] [address] Nurse Practitioner Family Medicine 09/20/23 Packer Relationship Specialty Start Date End Date Ty Amin MD [address] [place] [address]1002 PCP - General Family Medicine 09/20/23 Mckayla Blas NP [address] [place] [address] PCP - [facility] 09/07/23 09/05/90 Mckayla Blas NP [address] [place] [address] Nurse Practitioner Family Medicine 09/20/23 Packer Relationship Specialty Start Date End Date Ty Amin MD [address] [place] [address] PCP - General Family Medicine 09/20/23 Mckayla Blas NP [address] [place] [address] Nurse Practitioner Family Medicine 09/20/23 Packer Relationship Specialty Start Date End Date Ty Amin MD [address] [place] [address] PCP - General Family Medicine 09/20/23 Mckayla Blas NP [address] [place] [address] Nurse Practitioner Family Medicine 09/20/23 Packer Relationship Specialty Start Date End Date Ty Amin MD [address] [place] [address] PCP - General Family Medicine 09/20/23 Mckayla Blas NP [address] [place] [address] Nurse Practitioner Family Medicine 09/20/23 Packer Relationship Specialty Start Date End Date Ty Amin MD [address] [place] [address] PCP - General Family Medicine 09/20/23 Mckayla Blas NP [address] [place] [address] Nurse Practitioner Family Medicine 09/20/23 REASON [...] BE BASED ON THE PRIMARY CLINICAL RECORDS. [employer] [facility]. provides no warranty or guarantee of the accuracy or completeness of information in this document.
== END 2025-02-18 13:32 | disposition home or self-care (01) ==
LOC: WC 13:31
PROVIDERS: PCP Nurse Practitioner; Visit Provider Physician Assistant
DX: M48.062 Spinal stenosis, lumbar region with neurogenic claudication (principal); M51.369 Other intervertebral disc degeneration, lumbar region without mention of lumbar back pain or lower extremity pain; M54.16 Radiculopathy, lumbar region; G89.4 Chronic pain syndrome; Z79.891 Long term (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 opiate analgesic; M16.9 Osteoarthritis of hip, unspecified; M25.551 Pain in right hip; I87.332 Chronic venous hypertension (idiopathic) with ulcer and inflammation of left lower extremity; L97.822 Non-pressure chronic ulcer of other part of left lower leg with fat layer exposed; I87.311 Chronic venous hypertension (idiopathic) with ulcer of right lower extremity; L97.812 Non-pressure chronic ulcer of other part of right lower leg with fat layer exposed
CPT/HCPCS: 29581; G0463

== ENCOUNTER 2025-02-20 11:44 | Outpatient (OUT) | payer MEDICARE, SELFPAY ==
--- OUTSIDE RECORDS SUMMARY | 2024-04-07 05:07 | XMS_ITS ---
Author Organization The [facility] in [place] Address [address] [place] [place] [address] Care Team Providers Care [place] Attendant Name Role Phone Mckayla Blas CNP Primary Care Provider Armando Limon Unavailable [phone] REASON FOR VISIT Varenicline Tartrate (Starter) Refill Request Encounters Encounter Location Date Provider Diagnosis Pulmonary Medicine [place] [address] [place] [address] 04/07/2024 Armando Yañez Plan Of Treatment No Information Progress Notes * Mitzi MACIAS LDOB:[birth year] (53 yo F)Acc No.[id number]:04/07/2024 Patient: Mitzi COX :1970 A ge:53 Y S ex:Female Address:[address] [place] [phone] * true * Date: Generated for Tiffanyi terrence/Falupeg/eTransmitting on: 0 02/20/2025 11:46 AM EDT
--- OUTSIDE RECORDS SUMMARY | 2024-12-02 05:30 | XMS_ITS ---
Author Organization The [facility] in [place] Address [address] [place] [address] Care Team Providers Care Associate Artistic Director Name Role Phone Mckayla Blas CNP Primary Care Provider Armando Limon Unavailable [phone] REASON FOR VISIT 1YEAR-COPD Encounters Encounter Location Date Provider Diagnosis Pulmonary Medicine [place] [address] [place] [address] 12/02/2024 Armando Yañez Plan Of Treatment No Information Progress Notes * Mitzi MACIAS LDOB:[birth year] (54 yo F)Acc No.[id number]:12/02/2024 UNLOCKED PROGRESS NOTE Follow Up Patient: Mitzi COX Provider: Tray Yañez DO :1970 A ge:54 Y S ex:Female Date:12/02/2024 Address:[address] [place], [place] [address] Pcp:Mckayla Blas CNP Subjective: * Chief Complaints: * 1 . 1YEAR-COPD. * Medical History: Objective: * Vitals: Assessment: Plan: * Treatment: * * Electronic signature of Radha Yañez DO on 02/20/2025 at 11:47 AM EDT Sign off status: Pending Visit Status: N /S N/C (No Show/No Charge) * Provider: Tray Yañez DO Date: 0 12/02/2024 Generated for Vanessa ocampo/Luis/eTransmitting on: 0 02/20/2025 11:47 AM EDT
--- OUTSIDE RECORDS SUMMARY | 2024-12-02 05:47 | XMS_ITS ---
Author Organization The [facility] in [place] Address [address] [place] [address] Care Team Providers Care Hairspring Truer Name Role Phone Mckayla Blas CNP Primary Care Provider Armando Limon [phone] REASON FOR VISIT No Show Appointment Encounters Encounter Location Date Provider Diagnosis Pulmonary Medicine [place] [address] [place] [address] 12/02/2024 Armando Yañez Plan Of Treatment No Information Progress Notes * MACIASMitzi CARPIO LDOB:[birth year] (54 yo F)Acc No.[id number]:12/02/2024 Patient: Mitzi COX :1970 A ge:54 Y S ex:Female Address:[address] [place] [phone] * true * Date: Generated for Tiffanyi terrence/Luis/eTransmitting on: 0 02/20/2025 11:46 AM EDT
--- OUTSIDE RECORDS SUMMARY | 2025-02-20 11:46 | XMS_ITS | Encounter Summary ---
Author Organization [facility] Address [address] [place] [address] Care Team Providers Care Supervisor Lime Name Role Phone Ty Amin MD Primary Care Provider [phone] Mckayla Blas SOFTWARE DEVELOPMENT SPECIALIST Unavailable [phone] Mckayla Blas SOFTWARE DEVELOPMENT SPECIALIST Unavailable [phone] Encounter Details Date Type Department Care Team (Late st Contact Info) Description 07/14/2024 Orders Only [facility] [address] [place] [address] Mckayla Blas SOFTWARE DEVELOPMENT SPECIALIST [address] [place] [address] Social History Tobacco Use Types Packs/Day Years [...] often do you attend chur ch or yazidism services? 1 to 4 times per year [...] Recorded Patient Health Questionnaire-2 Score 1 01/17/2024 [facility] - [...] Office Visit [facility] [address] [place] [address] Mckayla Blas, SOFTWARE DEVELOPMENT SPECIALIST [address] [place] [address] 05/28/2025 10:30 AM EST Office Visit [facility] [address] [place] [address] Rain Souza MD [address] [place] [address] 02/01/2026 6:00 PM EDT Office Visit [facility] [address] [place] [address] Mckayla Blas NP [address] [place] [address] documented as of this encounter Procedures Procedure [...] as of this encounter Care Teams Supervisor Lime Relationship Specialty Start Date End Date Ty Amin MD [address] [place] [address] PCP - General Family Medicine 09/20/23 Mckayla Blas NP [address] [place] [address] PCP - [facility] 09/07/23 01/11/25 Mckayla Blas NP [address] [place] [address] Nurse Practitioner Family Medicine 09/20/23 documented as of this encounter
--- OUTSIDE RECORDS SUMMARY | 2025-02-20 11:46 | XMS_ITS | Encounter Summary ---
Author Organization [facility] Address [address] [place] [address] Care Team Providers Care Utility Inspector Name Role Phone Ty Amin MD Primary Care Provider [phone] Ty Amin MD Primary Care Provider [phone] Mckayla Blas MUSIC JOURNALIST Unavailable [phone] Mckayla Blas MUSIC JOURNALIST Unavailable [phone] Encounter Details Date Type Department Care Team (Late st Contact Info) Description 08/31/2023 Clinisync Result Encounter [facility] External Department Unsolicited Andra Alcala PA [address] [place] [address] Dr [address] [place], [place] [phone] Social History Tobacco Use Types Packs/Day Years [...] any clubs o r organizations such as lutheran groups, unions, fraternal or athletic groups, or [...] Recorded Patient Health Questionnaire-2 Score 2 07/10/2023 [facility] [...] Office Visit [facility] [address] [place] [address] Mckayla Blas NP [address] [place] [place] [address] 05/28/2025 10:30 AM EST Office Visit [facility] [address] [place] [address] Rain Souza MD [address] [place] [address] 02/01/2026 6:00 PM EDT Office Visit [facility] [address] [place] [address] Mckayla Blas NP [address] [place] [address] documented as of this encounter Procedures Procedure [...] LAB BLOOD ORDERAB LES Final Result [facility] * BLOOD CULTURE 1 (09/10/2023 2:05 PM EST) BLOOD CULTURE 1 Blood Culture 1 NG5D NO GROWTH AT 5 DAYS.^NO GROWTH AT 5 DAYS. TB 09/10/2023 2:05 PM EST 09/10/2023 2:28 PM EST Narrative [facility] - 09/16/2023 1:07 PM EDT Generic External Data Provider LAB BLOOD ORDERAB LES Final Result [facility] * ECG 12-LEAD (08/31/2023 6:08 PM EST) Anatomical Region Laterality Modality Other 08/31/2023 6:08 PM EST Narrative 09/02/2023 7:32 AM EST [place] [id number] Electrocardiograph Report Signed Patient: MITZI MACIAS MR#: [id number] : 1970 Acct:[id number] Age/Sex: 53 / F ADM Date: 08/31/23 Loc: [place] 214-[address]: Jacqueline Becerra D.O. Ordering Physician: Andra Alcala Date of Service: 08/31/23 Procedure(s): ECG 12 lead Accession Number(s): [id number] cc: [facility] Test Date: 2023-08-31 Pat Name: MITZI MACIAS Department: Room: - Gender: Female Keg Filler: : 1970 Requested By: MCKAYLA BLAS Order Number: [id number] Reading MD: LAURI DIOR Measurements Intervals [place] Rate: 102 P: 67 SD: 144 QRS: 52 QRSD: 72 T: 49 QT: 326 QTc: 385 Interpretive Statements 1120 Sinus tachycardia 4068 Nonspecific Twave abnormality 8102 Low QRS voltage in chest leads 9140 abnormal rhythm ECG Compared to ECG 12/04/2022 21:27:48 Electronically Signed On 09-02-2023 7:31:43 EST by LAURI DIOR Dictated By: Lauri Dior D.O. Signed By: 09/02/23 0732 DD/ 1808 TD/TT: Drug Abuse Treatment Specialist: Procedure Note Radiology, Radiologist, - 09/02/2023 The [place] [id number] Electrocardiograph Report Signed Patient: MITZI MACIAS R#: [id number] : 1970Acct:[id number] Age/Sex: 53 / FADM Date: 08/31/23 Loc: [place] 214-[address]: Jacqueline Becerra D.O. Ordering Physician: Andra Alcala Date of Service: 08/31/23 Procedure(s): ECG 12 lead Accession Number(s): [id number] cc: [facility] Test Date: 2023-08-31 Pat Name: MITZI MACIAS Department: Room: - Gender: Female Keg Filler: : 1970 Requested By: MCKAYLA BLAS Order Number: [id number] Reading MD: LAURI DIOR Measurements Intervals [place] Rate: 102 P: 67 SD: 144 QRS: 52 QRSD: 72 T: 49 QT: 326 QTc: 385 Interpretive Statements 1120 Sinus tachycardia 4068 Nonspecific Tw[place] abnormality 8102 Low QRS voltage in chest leads 9140 abnormal rhythm ECG Compared to ECG 12/04/2022 21:27:48 Electronically Signed On 09-02-2023 7:31:43 EST by LAURI DIOR Dictated By: Lauri Dior D.O. Signed By:09/02/23 0732 DD/ 1808 TD/TT: Drug Abuse Treatment Specialist: Andra [facility]ERS [facility] Final Result documented in this encounter Visit Diagnoses Not on filedocumented in this encounter Care Teams Utility Inspector Relationship Specialty Start Date End Date Ty Amin MD PCP - General Family Medicine 01/05/23 09/19/23 Ty Amin MD [address] [place] [address] PCP - General Family Medicine 09/20/23 Mckayla Blas NP [address] [place] [address] PCP - [facility] 09/07/23 01/11/25 Mckayla Blas NP [address] [place] [address] Nurse Practitioner Family Medicine 09/20/23 documented as of this encounter
--- OUTSIDE RECORDS SUMMARY | 2025-02-20 11:46 | XMS_ITS | Encounter Summary ---
Author Organization [facility] [facility] tem Address [id number] [address] [place] [address] Care Team Providers Care Ship Laborer Name Role Phone JuanjoseMckayla carcamo Krystal PEREZN-PBX MECHANIC Primary Care Provider Encounter Details Date Type Department Care Team (Late st Contact Info) Description 05/31/2020 Orders Only [facility] [address] [place] [address] External, Scanning Provider Social History Tobacco Use [...] on filedocumented in this encounter Care Teams Ship Laborer Relationship Specialty Start Date End Date Mckayla Blas, CERTIFIED SKI PATROLLER-PBX MECHANIC [address] [place] [address] PCP - General Nurse Practitioner 09/25/18 documented as of this encounter
--- OUTSIDE RECORDS SUMMARY | 2025-02-20 11:46 | XMS_ITS | Encounter Summary ---
Author Organization [facility] Address [address] [place] [address] Care Team Providers Care World Travel Counselor Name Role Phone Ty Amin MD Primary Care Provider [phone] Mckayla Blas CHIEF OF HARBOR PATROL Unavailable [phone] Mckayla Blas CHIEF OF HARBOR PATROL Unavailable [phone] Encounter Details Date Type Department Care Team (Late st Contact Info) Description 01/07/2025 Abstract [facility] [address] [place] [address] Mckayla Blas NP [address] [place] [address] Social History Tobacco Use Types [...] Recorded Patient Health Questionnaire-2 Score 1 01/17/2024 [facility] - Occupational [...] in the past 12 m [facility], were you homeless or living in a [...] Visit [facility] [address] [place] [address] Mckayla Blas NP [address] [place] [address] 05/28/2025 10:30 AM EST Office Visit [facility] [address] [place] [address] Rain Souza MD [address] [place] [address] 02/01/2026 6:00 PM EDT Office Visit [facility] [address] [place] [address] Mckayla Blas, SILVANO [address] [place] [address] documented as of this encounter Visit Diagnoses Not on filedocumented in this encounter Additional Health Concerns Assessment Noted Time PHQ-9 Depression Total Score: 3 01/17/20 10:08 AM EDT documented as of this encounter Care Teams World Travel Counselor Relationship Specialty Start Date End Date Ty Amin MD [address] [place] [address] PCP - General Family Medicine 09/20/23 Mckayla Blas NP [address] [place] [address] PCP - [facility] 09/07/23 01/11/25 Mckayla Blas NP [address] [place] [address] Nurse Practitioner Family Medicine 09/20/23 documented as of this encounter
--- OUTSIDE RECORDS SUMMARY | 2025-02-20 11:46 | XMS_ITS | Encounter Summary ---
Author Organization [facility] Address [address] [place] [address] Care Team Providers Care Classroom Teacher Name Role Phone Ty Amin MD Primary Care Provider [phone] Mckayla Blas NP Unavailable [phone] Encounter Details Date Type Department Care Team (Late st Contact Info) Description 02/18/2025 Abstract [facility] [address] [place] [address] Mckayla Blas, NEUROLOGICAL SURGEON [address] [place] [address] Social History Tobacco Use Types Packs/Day Years [...] week 08/26/2024 How often do you attend [facility] or denominational services? More than 4 times [...] Recorded Patient Health Questionnaire-2 Score 0 01/26/2025 [facility]at ional [...] any time in the past 12 m [facility], were you homeless or living [...] Office Visit [facility] [address] [place] [address] Mckayla Blas NP [address] [place] [address] 05/28/2025 10:30 AM EST Office Visit [facility] [address] [place] [address] Rain Souza MD [address] [place] [address] 02/01/2026 6:00 PM EDT Office Visit [facility] [address] [place] [address] Mckayla Blas NP [address] [place] [address] documented as of this encounter Visit Diagnoses Not on filedocumented in this encounter Additional Health Concerns Assessment Noted Time PHQ-9 Depression Total Score: 3 01/17/20 24 10:08 AM EDT documented as of this encounter Care Teams Classroom Teacher Relationship Specialty Start Date End Date Ty Amin MD [address] [place] [address] PCP - General Family Medicine 09/20/23 Mckayla Blas NP [address] [place] [address] Nurse Practitioner Family Medicine 09/20/23 documented as of this encounter
--- OUTSIDE RECORDS SUMMARY | 2025-02-20 11:46 | XMS_ITS | Encounter Summary ---
Author Organization [employer] tem Address [id number] [address] [place] [address] Care Team Providers Care Bobbin Winder Tender Name Role Phone JuanjoseMckayla carcamo Krystal PALEOLOGY TEACHER-MIDDLE SCHOOL TEACHER Primary Care Provider Encounter Details Date Type Department Care Team (Late st Contact Info) Description 05/31/2020 Orders Only [facility] [address] [place] [address] External, Scanning Provider Social History Tobacco Use [...] ECG ORDERABLES Final Result Performing Organization Address [facility] Co de Phone Number MANUALLY TRANSCRIBED [...] ECG ORDERABLES Final Result Performing Organization Address [facility] Co de Phone Number MANUALLY TRANSCRIBED RESULTS * Pulmonary function test (10/24/2018) us Scanning Provider External PFT ORDERABLES Final Result Performing Organization Address [facility] Co de Phone Number MANUALLY TRANSCRIBED RESULTS * Nuc stress Lexiscan/Exercise (12/12/2016) Anatomical Region Laterality Modality Chest N/A Nuclear Medicine us Scanning Provider External CV STRESS ORDERABLES Final Result documented in this encounter Visit Diagnoses Not on filedocumented in this encounter Care Teams Bobbin Winder Tender Relationship Specialty Start Date End Date Mckayla Blas, PALEOLOGY TEACHER-MIDDLE SCHOOL TEACHER [address] [place] [address] PCP - General Nurse Practitioner 09/25/18 documented as of this encounter
--- OUTSIDE RECORDS SUMMARY | 2025-02-20 11:46 | XMS_ITS | Encounter Summary ---
Author Organization [facility] Address [id number] [address] [place] [address] Care Team Providers Care Transmitter Chief Name Role Phone Mckayla Blas APRN-ROLL INSPECTOR Primary Care Provider Encounter Details Date Type Department Care Team (Late st Contact Info) Description 05/03/2020 [facility]phone [facility] [address] [place] [address] Tramaine Romero DO [address] [place] [address], [address] [id number] Social History Tobacco Use Types Packs/Day Years [...] on filedocumented in this encounter Care Teams Transmitter Chief Relationship Specialty Start Date End Date Mckayla Blas APRN-[place] [address] PCP - General Nurse Practitioner 09/25/18 documented as of this encounter
--- OUTSIDE RECORDS SUMMARY | 2025-02-20 11:46 | XMS_ITS | Encounter Summary ---
Author Organization [facility] Address [address] [place] [address] Care Team Providers Care Front Desk Auxiliary Name Role Phone yT Amin MD Primary Care Provider [phone] Ty Amin MD Primary Care Provider [phone] Mckayla Blas BINDER CASER Unavailable [phone] Mckayla Blas BINDER CASER Unavailable [phone] Encounter Details Date Type Department Care Team (Late st Contact Info) Description 09/12/2023 Orders Only [facility] [address] [place] [address] Social History Tobacco Use Types Packs/Day Years [...] Recorded Patient Health Questionnaire-2 Score 2 07/10/2023 [facility]at ional Health [...] Visit [facility] [address] [place] [address] Mckayla Blas, SILVANO [address] [place] [address] 05/28/2025 10:30 AM EST Office Visit [facility] [address] [place] [address] Rain Souza MD [address] [place] [address] 02/01/2026 6:00 PM EDT Office Visit [facility] [address] [place] [address] Mckayla Blas NP [address] [place] [address] documented as of this encounter Procedures Procedure [...] on filedocumented in this encounter Care Teams Front Desk Auxiliary Relationship Specialty Start Date End Date Ty Amin MD PCP - General Family Medicine 01/05/23 09/19/23 Ty Amin MD [address] [place] [address] PCP - General Family Medicine 09/20/23 Mckayla Blas NP [address] [place] [address] PCP - [facility] 09/07/23 01/11/25 Mckayla Blas NP [address] [place] [address] Nurse Practitioner Family Medicine 09/20/23 documented as of this encounter
--- OUTSIDE RECORDS SUMMARY | 2025-02-20 11:47 | XMS_ITS | Encounter Summary ---
Author Organization [facility] Address [address] [place] [address] Care Team Providers Care Social Insurance Specialist Name Role Phone Ty Amin MD Primary Care Provider [phone] Mckayla Blas CUT FILER Unavailable [phone] Mckayla Blas CUT FILER Unavailable [phone] Encounter Details Date Type Department Care Team (Late st Contact Info) Description 04/14/2024 Orders Only [facility] [address] [place] [address] Mckayla Blas CUT FILER [address] [place] [address] Social History Tobacco Use Types Packs/Day Years [...] often do you attend chur ch or anglican services? 1 to 4 times per year [...] Questionnaire-2 Score 1 01/17/2024 [facility] [...] Office Visit [facility] [address] [place] [address] Mckayla Blas, CUT FILER [address] [place] [address] 05/28/2025 10:30 AM EST Office Visit [facility] [address] [place] [address] Rain Souza MD [address] [place] [address] 02/01/2026 6:00 PM EDT Office Visit [facility] [address] [place] [address] Mckayla Blas NP [address] [place] [address] documented as of this encounter Procedures Procedure [...] Ankle Right Radiogr aphic Imaging Mckayla Blas CUT FILER IMG XR PROCEDURES Final Result documented in this encounter Visit Diagnoses Not on filedocumented in this encounter Additional Health Concerns Assessment Noted Time PHQ-9 Depression Total Score: 3 01/17/20 10:08 AM EDT documented as of this encounter Care Teams Social Insurance Specialist Relationship Specialty Start Date End Date Ty Amin MD [address] [place] [address] PCP - General Family Medicine 09/20/23 Mckayla Blas NP [address] [place] [address] PCP - [facility] 09/07/23 01/11/25 Mckayla Blas NP [address] [place] [address] Nurse Practitioner Family Medicine 09/20/23 documented as of this encounter
--- OUTSIDE RECORDS SUMMARY | 2025-02-20 11:47 | XMS_ITS | Encounter Summary ---
Author Organization [facility] Address [address] [place] [address] Care Team Providers Care Pattern Changer And Repairer Name Role Phone Ty Amin MD Primary Care Provider [phone] Mckayla Blas NP Unavailable [phone] Mckayla Blas NP Unavailable [phone] Encounter Details Date Type Department Care Team (Late st Contact Info) Description 05/12/2024 Orders Only [facility] [address] [place] [address] Angela Cochran NP [address] [place] [address] Social History Tobacco Use Types [...] 1 01/17/2024 [facility] - Occupational Stress Questionnaire Answer Date [...] Office Visit [facility] [address] [place] [address] Mckayla Blas NP [address] [place] [address] 05/28/2025 10:30 AM EST Office Visit [facility] [address] [place] [address] Rain Souza MD [address] [place] [address] 02/01/2026 6:00 PM EDT Office Visit [facility] [address] [place] [address] Mckayla Blas NP [address] [place] [address] documented as of this encounter Procedures Procedure [...] documented as of this encounter Care Teams Pattern Changer And Repairer Relationship Specialty Start Date End Date Ty Amin MD [address] [place] [address] PCP - General Family Medicine 09/20/23 Mckayla Blas NP [address] [place] [address] PCP - [facility] 09/07/23 01/11/25 Mckayla Blas NP [address] [place] [address] Nurse Practitioner Family Medicine 09/20/23 documented as of this encounter
--- OUTSIDE RECORDS SUMMARY | 2025-02-20 11:47 | XMS_ITS | Encounter Summary ---
Author Organization [facility] Address [address] [place] [address] Care Team Providers Care Chairperson Anesthesiology Name Role Phone Ty Amin MD Primary Care Provider [phone] Mckayla Blas CANE WEIGHER HELPER Unavailable [phone] Mckayla Blas CANE WEIGHER HELPER Unavailable [phone] Encounter Details Date Type Department Care Team (Late st Contact Info) Description 01/07/2025 Abstract [facility] [address] [place] [address] Mckayla Blas NP [address] [place] [address] Social History Tobacco Use Types [...] often do you attend chur ch or sikh services? More than 4 times per year [...] any time in the past 12 m [facility], were you homeless or [...] Visit [facility] [address] [place] [address] Mckayla Blas NP [address] [place] [address] 05/28/2025 10:30 AM EST Office Visit [facility] [facility] [address] [place] [address] Rain Souza MD [address] [place] [address] 02/01/2026 6:00 PM EDT Office Visit [facility] [address] [place] [address] Mckayla Blas, SILVANO [address] [place] [address] documented as of this encounter Visit Diagnoses Not on filedocumented in this encounter Additional Health Concerns Assessment Noted Time PHQ-9 Depression Total Score: 3 01/17/20 10:08 AM EDT documented as of this encounter Care Teams Chairperson Anesthesiology Relationship Specialty Start Date End Date Ty Amin MD [address] [place] [address] PCP - General Family Medicine 09/20/23 Mckayla Blas NP [address] [place] [address] PCP - [facility] 09/07/23 01/11/25 Mckayla Blas NP [address] [place] [address] Nurse Practitioner Family Medicine 09/20/23 documented as of this encounter
--- OUTSIDE RECORDS SUMMARY | 2025-02-20 11:47 | XMS_ITS | Clinical Summary ---
Author Organization [facility] Address [address] [place] [address] Care Team Providers Care Recreation Establishment Manager Name Role Phone Mckayla Blas MD Primary Care Provider [phone] Allergies No known active allergies Medications amitriptyline [...] TWICE DAILY 02/07/20 22 Active HYDROcodone-ac etaminophen ([place]) 5-325 mg tablet TAKE 1 TABLET BY MOUTH THREE TIMES A DAY NEEDED FOR PAIN MUST LAST 30 DAYS 11/09/19 24 Active DULoxetine (Cymbalta) [address] capsule Take 1 tablet by mouth in the morning. Active ergocalciferol (Vitamin D-2) 1.25 MG (63202 Units) capsule Take 1.25 mg by mouth. 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 [facility] current use of inhaled steroid 025 Vitamin [...] Assessment & Plan: Open wounds refer to [facility] Wound Care Vaginal yeast infection 08/17/2023 [...] also going to have her see [facility] Cardiology as well Encounters Date Type Department Care Team Description 02/04/2025 Results Follow-Up Cardiology [address] [place] [address] Karma Chatterjee CNP Complete Echo (TTE) w/wo Imaging Agent, Strain, 3D, Bubble Study 01/30/2025 Orders Only [facility] [address] [place] [address] ProviderDale MD 01/06/2025 11:20 AM EDT Office Visit [facility] [address] [place] [address] Karma Chatterjee CNP Chronic diastolic heart failure [...] drink = 0.6 oz pur e alcohol) [place] Safety & Environment Answer Date Rec orded [...] Months Insurance [employer] MEDICARE Care Teams Recreation Establishment Manager Relationship Specialty Start Date End Date Mckayla Blas MD [address] [place] [place] [address] PCP - General Nurse Practitioner 11/13/23
--- OUTSIDE RECORDS SUMMARY | 2025-02-20 11:47 | XMS_ITS | Clinical Summary ---
Author Organization [facility] Address [address] [place] [address] Care Team Providers Care Mechanics Supervisor Name Role Phone Ty Amin MD Primary Care Provider [phone] Mckayla Blas NP Unavailable [phone] Allergies No known active allergies Medications [...] if needed for wheezing Active HYDROcodone-acet aminophen (Geronimo) 5-325 MG tablet 1 tablet as needed [...] 025 Active ergocalciferol (Vitamin D2) 1.25 MG (04172 UT) capsuleIndicatio ns:Vitamin D deficiency, unspecified Take [...] complication, with long-term current use of insulin ([facility]) Chew 1 tablet (81 mg) Daily 90 tablet 3 025 2024 Discontinued(R eorder) cetirizine (ZyrTEC) 10 MG tabletIndication s:Non-seasonal allergic rhinitis, unspecified trigger Take 1 tablet (10 mg) by mouth Daily 90 tablet 1 2024 Discontinued(R eorder) dapagliflozin (Farxiga) 10 MGIndications:Ty pe 2 diabetes mellitus with unspecified complications (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) 09/17/2023 COPD exacerbation [...] 11:17 AM EDT): Open wounds refer to [facility] Wound Care Pulmonary hypertension 09/17/2023 Assessment & Plan (01/26/2025 7:52 AM EDT): Has seen [facility] Cardiology Assessment & Plan (12/09/2024 7:23 AM EDT): Has seen [facility] Cardiology Assessment & Plan (11/15/2023 3:49 PM EDT): Saw [facility] Cardiology See notes Going to see Pulmonary Assessment & Plan (09/27/2023 1:03 PM EDT): Needs to wear her PAP I am also going to have her see [facility] Cardiology as well PAD (peripheral artery [...] spiriva Will trial breztri: #2 samples given [id number], exp 03/03, rinse mouth after use Give [...] PM EDT): Current meds: albuterol, duoneb, Has associate program manager 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 Assessment & Plan (08/27/2024 7:30 AM EST): Current meds: albuterol, duoneb, Has associate program manager 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 Assessment & Plan [...] lost script I did contact [facility] [place], they will get another fill on this [...] of the risks of continued smoking: stroke, IL, all forms of cancer, lung disease, and [...] of the risks of continued smoking: stroke, IL, all forms of cancer, lung disease, and [...] Department Care Team Description 02/18/[address] [facility] [address] [place] [address] Mckayla Blas NP 02/14/2025 Refill [facility] [address] [place] [address] Rain Odonnell MD Type 2 diabetes mellitus with hyperglycemia, with long-term current use of insulin (HCC) 01/29/2025 9:40 AM EDT Office Visit [facility] [address] [place] [address] Rain Odonnell MD Encounter for dietary consultation (Primary Dx); Type 2 diabetes mellitus with hyperglycemia, with long-term current use of insulin ([facility]); Vitamin D deficiency; Primary hypertension ; Insulin long-term use ([facility]); Hyperlipemia, mixed ; Microalbuminuria; Class 3 severe obesity due to excess calories with serious comorbidity and body mass index (BMI) of 50.0 to 59.9 in adult ([facility]) 01/29/2025 Clinisync Result Encounter [facility] External Department Unsolicited Provider, Generic External Data 01/29/2025 Bamboo flowsheet [facility] [address] [place] [address] Rain Odonnell MD 01/26/2025 6:00 PM EDT Office Visit [facility] [address] [place] [address] Mckayla Blas NP Encounter for subsequent annual [...] (severe) obesity due to excess calories ([facility]) 01/26/[address] [facility] [address] [place] [address] Mckayla Blas NP 01/19/2025 Travel 01/16/2025 Refill [facility] [address] [place] [address] Amber Pinzon LPN Vitamin D deficiency, unspecified 01/07/[address] [facility] [address] [place] [address] Mckayla Bals NP 01/07/[address] [facility] [address] [place] [address] Mckayla Blas NP 12/18/[address] [facility] [address] [place] [address] Mckayla Blas NP Hyperlipidemia, unspecified ; Tobacco user; Encounter for smoking cessation counseling 12/17/[address] [facility] [address] [place] [address] Mckayla Blas NP Error (VOID this visit) 12/09/2024 10:00 AM EDT Office [facility] [address] [place] [address] Mckayla Blas NP Cellulitis of left lower extremity (Primary Dx); COPD exacerbation (HCC); Primary hypertension ; Pulmonary hypertension (HCC); Morbid (severe) obesity due to excess calories (CMS-HCC); Type 2 diabetes mellitus with complication, with long-term current use of insulin (HCC); Anxiety and depression ; Fever, unspecified fever cause 12/09/[address] [facility] [address] [facility] [place] [address] Mckayla Blas NP 12/08/2024 Travel 12/04/2024 Clinisync Result Encounter NOM[facility] External Department Unsolicited Provider, Generic External Data from Last 3 Months Immunizations Immunization Administration Dates Next Due Influenza Whole 05/02/2013 Influenza, [id number] 04/16/2017,05/10/2016 Influenza, Unspecified 05/18/2023,04/16/2017,08/2015 Influenza, injectable, quadrivalent [...] do you attend chur or episcopal services? More than 4 times [...] Recorded Patient Health Questionnaire-2 Score 0 01/26/2025 [facility] - Occupational Stress [...] PM EDT Office Visit [facility] [address] [place] [address] Mckayla Blas NP [address] [place] [address] 05/28/2025 10:30 AM EST Office Visit [facility] [address] [place] [address] Rain Odonnell MD [address] [place] [address] 02/01/2026 6:00 PM EDT Office Visit [facility] [address] [place] [address] Mckayla Blas NP [address] [place] [address] Health Maintenance Due Date Last Done Comments [...] EDT Narrative 01/29/2025 6:40 PM EDT The [address] [address] Cardiology Report Signed Patient: MITZI MACIAS MR#: [id number] : 1970 Acct:[id number] Age/Sex: 54 / F ADM Date: 01/29/25 Loc: CARD Attending Dr: AMI ORO APRN Ordering Physician: AMI ORO APRN Date of Service: 01/29/25 Procedure(s): CA echo doppler complete Accession Number(s): [id number] cc: Mckayla Blas STATION MECHANIC; AMI ORO APRN Patient Name: MITZI MACIAS MR#: [id number] : 1970 Exam Date: 01/29/2025 Ordering Doctor: AMI ORO CEMETERY VAULT INSTALLER ECHOCARDIOGRAM REPORT PROCEDURE: CA ECHO DOPPLER COMPLETE [...] AGUILAR Signed By: 01/29/251839 DD/ 39 TD/TT: Guide Cruise: Procedure Note Radiology, Radiologist, MD - 01/29/2025 [place] [address] Cardiology Report Signed Patient: MITZI MACIAS LMR#: [id number] : 1970Acct:[id number] Age/Sex: 54 / FADM Date: 01/29/25 Loc: CARD Attending Dr: AMI ORO APRN Ordering Physician: AMI ORO APRN Date of Service: 01/29/25 Procedure(s): CA echo doppler complete Accession Number(s): [id number] cc: Mckayla Blas STATION MECHANIC; AMI ORO APRN Patient Name: MITZI MACIAS MR#: [id number] : 1970 Exam Date: 01/29/2025 Ordering Doctor: [...] BHARAT AGUILAR Signed By:01/29/251839 DD/ 39 TD/TT: Guide Cruise: Generic External Data Provider [facility] Final [...] PM EDT 12/04/2024 6:18 PM EDT Narrative [facility] - 12/10/2024 2:31 PM EDT LEFT AC us Generic External Data Provider LAB BLOOD ORDERAB LES Final Result Performing Organization Address [facility]/ZIP Co de Phone Number [facility] * BLOOD CULTURE 1 (12/04/2024 4:44 PM EDT) BLOOD CULTURE 1 Blood Culture 1 NG5D NO GROWTH AT 5 DAYS.^NO GROWTH AT 5 DAYS. TB 12/04/2024 4:44 PM EDT 12/04/2024 5:17 PM EDT Narrative [facility] - 12/10/2024 2:32 PM EDT us Generic External Data Provider LAB BLOOD ORDERAB LES Final Result Performing Organization Address [facility] Co de Phone Number [facility] * Diabetic Retinopathy Screening - OU - Both Eyes (07/14/2024 3:09 PM EST) Anatomical Region Laterality Modality Head Other Mckayla Blas NP OPHTH PHOTOGRAPHY Final Result * MM TOMOSYNTHESIS SCREENING BI (12/14/2023 11:21 AM EDT) Anatomical Region Laterality Modality Other 12/14/2023 11:2 1 AM EDT Narrative 12/14/2023 11:22 [place] [address] Mammography Report Signed Patient: MITZI MACIAS MR#: [id number] : 1970 Acct:[id number] Age/Sex: 53 / F ADM Date: 12/13/23 Loc: MAMMO Attending Dr: Mckayla Blas NP Ordering Physician: Mckayla Blas NP Results: Date of Service: 12/13/23 Follow Up: Procedure(s): MM tomosynthesis screening BI Accession Number(s): [id number] cc: Mckayla Blas NP Patient Name: MITZI MACIAS MR#: [id number] : 1970 Exam Date: 12/13/2023 Ordering Doctor: [...] unknown cancer at age 75. LOCATION: [facility] BREAST COMPOSITION: The breasts are almost [...] Signed By: 12/14/23 1122 DD/ 1121 TD/TT: Guide Cruise: Procedure Note Radiology, Radiologist, MD - 12/14/2023 [place] [address] Mammography Report Signed Patient: MITZI MACIAS LMR#: [id number] : 1970Acct:[id number] Age/Sex: 53 / FADM Date: 12/13/23 Loc: MAMMO Attending Dr: Mckayla Blas NP Ordering Physician: Mckayla Blas NPResults: Date of Service: 12/13/23Follow Up: Procedure(s): MM tomosynthesis screening BI Accession Number(s): [id number] cc: Mckayla Blas NP Patient Name: MITZI MACIAS MR#: [id number] : 1970 Exam Date: 12/13/2023 Ordering Doctor: SAYDA Blas CEMETERY VAULT INSTALLER RADIOLOGY REPORT PROCEDURE: MM TOMOSYNTHESIS SCREENING BI [...] unknown cancer at age 75. LOCATION: [facility] BREAST COMPOSITION: The breasts are almost [...] M.D. Signed By:12/14/23 1122 DD/ 1121 TD/TT: Guide Cruise: Mckayla Blas NP [facility] Final Result from Last 3 Months or Most Recently Relevant to Health Maintenance Insurance MEDICARE [employer] Care Teams Mechanics Supervisor Relationship Specialty Start Date End Date Ty Amin MD [address] [place] [address] PCP - General Family Medicine 09/20/23 Mckayla Blas NP [address] [place] [address] Nurse Practitioner Family Medicine 09/20/23
--- OUTSIDE RECORDS SUMMARY | 2025-02-20 11:47 | XMS_ITS | Encounter Summary ---
Author Organization [facility] Address [address] [place] [address] Care Team Providers Care Breakdown Man Name Role Phone Ty Amin MD Primary Care Provider [phone] Mckayla Blas ASSEMBLER MUSICAL INSTRUMENTS Unavailable [phone] Mckayla Blas NP Unavailable [phone] Encounter Details Date Type Department Care Team (Late st Contact Info) Description 12/17/2023 Orders Only [facility] [address] [place] [address] Mckayla Blas NP [address] [place] [address] Social History Tobacco Use Types Packs/Day Years [...] often do you attend chur ch or voodoo services? 1 to 4 times per year 07/10/2023 Do you belong to any clubs o r organizations such as nondenominational groups, unions, fraternal or athletic groups, or [...] Recorded Patient Health Questionnaire-2 Score 0 11/01/2023 [facility] - Occupational [...] Office Visit [facility] [address] [place] [address] Mckayla Blas NP [address] [place] [address] 05/28/2025 10:30 AM EST Office Visit [facility] [address] [place] [address] Rain Souza MD [address] [place] [address] 02/01/2026 6:00 PM EDT Office Visit [facility] [address] [place] [address] Mckayla Blas NP [address] [place] [address] documented as of this encounter Procedures Procedure [...] on filedocumented in this encounter Care Teams Breakdown Man Relationship Specialty Start Date End Date Ty Amin MD [address] [place] [address] PCP - General Family Medicine 09/20/23 Mckayla Blas NP [address] [place] [address] PCP - [facility] 09/07/23 01/11/25 Mckayla Blas NP [address] [place] [address] Nurse Practitioner Family Medicine 09/20/23 documented as of this encounter
--- OUTSIDE RECORDS SUMMARY | 2025-02-20 11:47 | XMS_ITS | Encounter Summary ---
Author Organization [facility] Address [address] [place] [address] Care Team Providers Care Wire Stockkeeper Name Role Phone Ty Amin MD Primary Care Provider [phone] Mckayla Blas GLASS NOVELTY MAKER Unavailable [phone] Mckayla Blas NP Unavailable [phone] Encounter Details Date Type Department Care Team (Late st Contact Info) Description 12/14/2023 Clinisync Result Encounter [facility] External Department Unsolicited Mckayla Blas NP [address] [place] [address] Social History Tobacco Use Types Packs/Day Years [...] How often do you attend chur or orthodoxy services? 1 to 4 times per year [...] Recorded Patient Health Questionnaire-2 Score 0 11/01/2023 [facility] - Occupational Stress Questionnaire Answer Date [...] Visit [facility] [address] [place] [address] Mckayla Blas, SILVANO [address] [place] [address] 05/28/2025 10:30 AM EST Office Visit [facility] [address] [place] [address] Rain Souza MD [address] [place] [address] 02/01/2026 6:00 PM EDT Office Visit [facility] [address] [place] [address] Mckayla Blas NP [address] [place] [address] documented as of this encounter Procedures Procedure Name Priority Date/Time Associated Diagnosis Comments MM TOMOSYNTHESIS SCREENING BI 12/14/2023 11:21 AM EDT documented in this encounter Results * MM TOMOSYNTHESIS SCREENING BI (12/14/2023 11:21 AM EDT) Anatomical Region Laterality Modality Other 12/14/2023 11:2 1 AM EDT Narrative 12/14/2023 11:22 [place] [address] Mammography Report Signed Patient: SINA MACIAS MR#: [id number] : 1970 Acct:[id number] Age/Sex: 53 / F ADM Date: 12/13/23 Loc: MAMMO Attending Dr: Mckayla Blas NP Ordering Physician: Mckayla Blas NP Results: Date of Service: 12/13/23 Follow Up: Procedure(s): MM tomosynthesis screening BI Accession Number(s): [id number] cc: Mckayla Blas NP Patient Name: SINA MACIAS MR#: [id number] : 1970 Exam Date: 12/13/2023 Ordering Doctor: [...] unknown cancer at age 75. LOCATION: [facility] BREAST COMPOSITION: The breasts are almost [...] Signed By: 12/14/23 1122 DD/ 1121 TD/TT: Mental Health Advanced Practice Nurse: Procedure Note Radiology, Radiologist, MD - 12/14/2023 [place] [address] Mammography Report Signed Patient: SINA MACIAS LMR#: [id number] : 1970Acct:[id number] Age/Sex: 53 / FADM Date: 12/13/23 Loc: MAMMO Attending Dr: Mckayla Blas NP Ordering Physician: Mckayla Blas NPResults: Date of Service: 12/13/23Follow Up: Procedure(s): MM tomosynthesis screening BI Accession Number(s): [id number] cc: Mckayla Blas NP Patient Name: SINA MACIAS MR#: [id number] : 1970 Exam Date: 12/13/2023 Ordering Doctor: SAYDA Blas AUTO ELECTRICIAN RADIOLOGY REPORT PROCEDURE: MM TOMOSYNTHESIS SCREENING [...] unknown cancer at age 75. LOCATION: [facility] BREAST COMPOSITION: The breasts are almost [...] M.D. Signed By:12/14/23 1122 DD/ 1121 TD/TT: Mental Health Advanced Practice Nurse: us Mckayla Blas NP [facility] Final Result documented in this encounter Visit Diagnoses Not on filedocumented in this encounter Care Teams Wire Stockkeeper Relationship Specialty Start Date End Date Ty Amin MD [address] [place] [address] PCP - General Family Medicine 09/20/23 Mckayla Blas NP [address] [place] [address] PCP - [facility] 09/07/23 01/11/25 Mckayla Blas NP [address] [place] [address] Nurse Practitioner Family Medicine 09/20/23 documented as of this encounter
--- OUTSIDE RECORDS SUMMARY | 2025-02-20 11:47 | XMS_ITS | Clinical Summary ---
Author Organization [facility] [employer] [facility] Address [id number] [address] [place] [address] Care Team Providers Care Tile Roofer Name Role Phone Wan Mckayla Krystal PEREZN-HAT BLOCK BENCH HAND Primary Care Provider Allergies No known active [...] Medical Devices Not on file Insurance [place] [employer] MEDICARE Care Teams Tile Roofer Relationship Specialty Start Date End Date Mckayla Blas APRN-HAT BLOCK BENCH HAND [address] [place] [address] PCP - General Nurse Practitioner 09/25/18
--- OUTSIDE RECORDS SUMMARY | 2025-02-20 11:47 | XMS_ITS | Encounter Summary ---
Author Organization [facility] Address [address] [place] [address] Care Team Providers Care Elevator Service Technician Name Role Phone Ty Amin MD Primary Care Provider [phone] Mckayla Blas ENGINEERING MECHANIC Unavailable [phone] Mckayla Blas ENGINEERING MECHANIC Unavailable [phone] Reason for Visit * Reason Comments Med Refill Encounter Details Date Type Department Care Team (Late st Contact Info) Description 11/27/2023 Refill [facility] [address] [place] [address] Mckayla Blas NP [address] [place] [address] Chronic obstructive pulmonary disease, unspecified (HCC) Social [...] How often do you attend chur or jainism services? 1 to 4 times per year 07/10/2023 Do you belong to any clubs o r organizations such as advent groups, unions, fraternal or athletic groups, or [...] Recorded Patient Health Questionnaire-2 Score 0 11/01/2023 [facility]at ional [facility] [...] Office Visit [facility] [address] [place] [address] Mckayla Blas NP [address] [place] [address] 05/28/2025 10:30 AM EST Office Visit [facility] [address] [place] [address] Rain Souza MD [address] [place] [address] 02/01/2026 6:00 PM EDT Office Visit [facility] [address] [place] [address] Mckayla Blas NP [address] [place] [phone] documented as of this encounter Visit Diagnoses Diagnosis Chronic obstructive pulmonary disease, unspecified (HCC) documented in this encounter Care Teams Elevator Service Technician Relationship Specialty Start Date End Date Ty Amin MD [address] [place] [address] PCP - General Family Medicine 09/20/23 Mckayla Blas NP [address] [place] [address] PCP - [facility] 09/07/23 01/11/25 Mckayla Blas NP [address] [place] [address] Nurse Practitioner Family Medicine 09/20/23 documented as of this encounter
--- OUTSIDE RECORDS SUMMARY | 2025-02-20 11:47 | XMS_ITS | Encounter Summary ---
Author Organization [facility] Address [address] [place] [address] Care Team Providers Care Vice President Planning Name Role Phone Ty Amin MD Primary Care Provider [phone] Ty Amin MD Primary Care Provider [phone] Mckayla Blas RELIABILITY SPECIALIST Unavailable [phone] Mckayla Blas RELIABILITY SPECIALIST Unavailable [phone] Encounter Details Date Type Department Care Team (Late st Contact Info) Description 07/08/2023 [facility] [address] [place] [address] Mckayla Blas NP [address] [place] [address] Social History Tobacco Use Types Packs/Day Years [...] often do you attend chur ch or scientology services? 1 to 4 times per year [...] Recorded Patient Health Questionnaire-2 Score 2 07/10/2023 [facility] - [...] 1 or 2 07/10/2023 11:22 AM UMBERTO VAERLA * Q3: How often do you have [...] 04/29/2025 6:00 PM EDT Office Visit [facility] [address] [place] [address] Mckayla Blas, SILVANO [address] [place] [address] 05/28/2025 10:30 AM EST Office Visit [facility] [address] [place] [address] Rain Souza MD [address] [place] [address] 02/01/2026 6:00 PM EDT Office Visit [facility] [address] [place] [address] Mckayla Blas NP [address] [place] [address] documented as of this encounter Visit Diagnoses Not on filedocumented in this encounter Care Teams Vice President Planning Relationship Specialty Start Date End Date Ty Amin MD PCP - General Family Medicine 01/05/23 09/19/23 Ty Amin MD [address] [place] [address] PCP - General Family Medicine 09/20/23 Mckayla Blas NP [address] [place] [address] PCP - [facility] 09/07/23 01/11/25 Mckayla Blas NP [address] [place] [address] Nurse Practitioner Family Medicine 09/20/23 documented as of this encounter
--- OUTSIDE RECORDS SUMMARY | 2025-02-20 11:47 | XMS_ITS | Encounter Summary ---
Author Organization [facility] Address [address] [place] [address] Care Team Providers Care Director Custom Name Role Phone Ty Amin MD Primary Care Provider [phone] Mckayla Blas NP Unavailable [phone] Reason for Visit * Reason Comments Med Refill Encounter Details Date Type Department Care Team (Late st Contact Info) Description 02/14/2025 [facility] [address] [place] [address] Rain Souza MD [address] [place] [address] Type 2 diabetes mellitus with hyperglycemia, with [...] How often do you attend chur or uatsdin services? More than 4 times per year 08/26/2024 Do you belong to any clubs o r organizations such as yarsanism groups, unions, fraR2G or athletic groups, or school groups? No [...] Recorded Patient Health Questionnaire-2 Score 0 01/26/2025 [facility] [...] in the past 12 m [facility], were you homeless or living [...] [facility] [address] [place] [address] Mckayla Blas NP [address] [place] [address] 05/28/2025 10:30 AM EST Office Visit [facility] [place] [facility] [address] [place] [address] Rain Souza MD [address] [place] [address] 02/01/2026 6:00 PM EDT [facility] [address] [place] [address] Mckayla Blas NP [address] [place] [address] documented as of this encounter Visit Diagnoses Diagnosis Type 2 diabetes mellitus with hyperglycemia, with long-term current use of insulin (HCC) documented in this encounter Additional Health Concerns Assessment Noted Time PHQ-9 Depression Total Score: 3 01/17/20 10:08 AM EDT documented as of this encounter Care Teams Director Custom Relationship Specialty Start Date End Date Ty Amin MD [address] [place] [address] PCP - General Family Medicine 09/20/23 Mckayla Blas NP [address] [place] [address] Nurse Practitioner Family Medicine 09/20/23 documented as of this encounter
--- OUTSIDE RECORDS SUMMARY | 2025-02-20 11:47 | XMS_ITS | Encounter Summary ---
Author Organization [facility] Address [address] [place] [address] Care Team Providers Care Veterinary Nurse Name Role Phone Ty Amin MD Primary Care Provider [phone] Mckayla Blas NP Unavailable [phone] Mckayla Blas NP Unavailable [phone] Encounter Details Date Type Department Care [...] Office Visit [facility] [address] [place] [address] Mckayla Blas NP [address] [place] [address] 05/28/2025 10:30 AM EST Office Visit [facility] [address] [place] [address] Rain Souza MD [address] [place] [address] 02/01/2026 6:00 PM EDT Office Visit [facility] [address] [place] [address] Mckayla Blas, SILVANO [address] [place] [address] documented as of this encounter Procedures Procedure Name Priority Date/Time Associated Diagnosis Comments SEGMENTAL BLOOD PRESSURE 04/24/2024 11:20 AM EDT documented in this encounter Results * SEGMENTAL BLOOD PRESSURE (04/24/2024 11:20 AM EDT) Anatomical Region Laterality Modality Radiographic Kalani ging 04/24/2024 11:2 0 AM EDT Narrative 04/24/2024 11:23 [place] [address] Vein Report Signed Patient: SINA MACIAS MR#: [id number] : 1970 Acct:[id number] Age/Sex: 53 / F ADM Date: 04/24/24 Loc: VC Attending Dr: Rafael Gongora Ordering Physician: Rafael Gongora Date of Service: 04/24/24 Procedure(s): VC SEGMENTAL PRESSURES Accession Number(s): [id number] cc: Mckayla Blas DRIER UNLOADER; Rafael Gongora [place] [address] Patient Name: SINA MACIAS MRN: [id number] date: 1970 Sex: F Assigned Patient Location: Current Patient Location: Accession/Order Number: [id number] Exam Date: 04/24/2024 10:25 Report Date: 04/24/2024 11:20 At the request of: RAFAEL GONGORA Procedure: VC SEGMENTAL PRESSURES EXAM: VC SEGMENTAL PRESSURES HISTORY: R09.89 COMPARISON: None. FINDINGS: Segmental pressures presented as follows (right, left) in mmHg. Brachial: 169, 166 Upper thigh: Not obtained Lower thigh: 129, 119 Calf: 124, 106 DPA: 108, 105 PARISH NURSE: 100, 91 1st Toe: 124, 142 [...] Signed By: 04/24/24 1123 DD/ 1120 TD/TT: Clamp Remover: Procedure Note Radiology, Radiologist, MD - 04/24/2024 [place] [address] Vein Report Signed Patient: SINA MACIAS LMR#: [id number] : 1970Acct:[id number] Age/Sex: 53 / FADM Date: 04/24/24 Loc: VC Attending Dr: Rafael Gongora Ordering Physician: Rafael Gongora Date of Service: 04/24/24 Procedure(s): VC SEGMENTAL PRESSURES Accession Number(s): [id number] cc: Mckayla Blas NP; Rafael Gongora [address] [place] [address] Patient Name: SINA MACIAS MRN: [id number] date: 1970 Sex: F Assigned Patient Location: Current Patient Location: VC Accession/Order Number: [id number] Exam Date: 04/24/2024 10:25 Report Date: 04/24/2024 11:20 At the request of: RAFAEL GONGORA Procedure: VC SEGMENTAL PRESSURES EXAM: VC SEGMENTAL PRESSURES HISTORY: R09.89 COMPARISON: None. FINDINGS: Segmental pressures presented as follows (right, left) in mmHg. Brachial: 169, 166 Upper thigh: Not obtained Lower thigh: 129, 119 Calf: 124, 106 DPA: 108, 105 PARISH NURSE: 100, 91 1st Toe: 124, 142 [...] M.D. Signed By:04/24/24 1123 DD/ 1120 TD/TT: Clamp Remover: us Generic External Data Provider IMG XR PROCEDURES Final Result documented in this encounter Visit Diagnoses Not on filedocumented in this encounter Additional Health Concerns Assessment Noted Time PHQ-9 Depression Total Score: 3 01/17/20 24 10:08 AM EDT documented as of this encounter Care Teams Veterinary Nurse Relationship Specialty Start Date End Date Ty Amin MD [address] [place] [address] PCP - General Family Medicine 09/20/23 Mckayla Blas NP [address] [place] [address] PCP - [facility] 09/07/23 01/11/25 Mckayla Blas NP [address] [place] [address] Nurse Practitioner Family Medicine 09/20/23 documented as of this encounter
--- OUTSIDE RECORDS SUMMARY | 2025-02-20 11:47 | XMS_ITS | Encounter Summary ---
Author Organization [facility] Address [address] [place] [address] Care Team Providers Care Quality Control Technician Name Role Phone Mckayla Blas MD Primary Care Provider [phone] Encounter Details Date Type Department Care Team (Late st Contact Info) Description 02/04/2025 Results Follow-Up Cardiology [address] [place] [address] Karma Chatterjee CNP [address] [facility] [place] [address] Complete Echo (TTE) w/wo Imaging [...] on filedocumented in this encounter Care Teams Quality Control Technician Relationship Specialty Start Date End Date Mckayla Blas MD [address] [place] [address] PCP - General Nurse Practitioner 11/13/23 documented as of this encounter
--- OUTSIDE RECORDS SUMMARY | 2025-02-20 11:47 | XMS_ITS | Encounter Summary ---
Author Organization [facility] Address [address] [place] [address] Care Team Providers Care Box Worker Name Role Phone Ty Amin MD Primary Care Provider [phone] Mckayla Blas NP Unavailable [phone] Mckayla Blas NP Unavailable [phone] Encounter Details Date Type Department Care [...] any clubs o r organizations such as moravian groups, unions, fraternal or athletic groups, or [...] Office Visit [facility] [address] [place] [address] Mckayla Blas NP [address] [place] [address] 05/28/2025 10:30 AM EST Office Visit [facility] [address] [place] [address] Rain Souza MD [address] [place] [address] 02/01/2026 6:00 PM EDT Office Visit [facility] [address] [place] [address] Mckayla Blas, SILVANO [address] [place] [address] documented as of this encounter Procedures Procedure Name Priority Date/Time Associated Diagnosis Comments CT ABDOMEN PELVIS W CON 05/12/2024 2:16 PM EST documented in this encounter Results * CT ABDOMEN PELVIS W CON (05/12/2024 2:16 PM EST) Anatomical Region Laterality Modality Other 05/12/2024 2:16 PM EST Narrative 05/12/2024 2:19 [place] [address] CT Scan Report Signed Patient: MITZI MACIAS MR#: [id number] : 1970 Acct:[id number] Age/Sex: 53 / F ADM Date: 05/12/24 Loc: CT Attending Dr: Gaviota MAYERS Ordering Physician: Gaviota Vega Date of Service: 05/12/24 Procedure(s): CT abdomen pelvis w con Accession Number(s): [id number] cc: Mckayla Blas NP [address] [address] Patient Name: MITZI MACIAS MRN: [id number] date: 1970 Sex: F Assigned Patient Location: CT Current Patient Location: Accession/Order Number: [id number] Exam Date: 05/12/2024 11:15 Report Date: 05/12/2024 [...] Signed By: 05/12/24 1419 DD/ 1416 TD/TT: Powder Worker Tnt: Procedure Note Radiology, Radiologist, MD - 05/12/2024 [place] [address] CT Scan Report Signed Patient: MITZI MACIAS LMR#: [id number] : 1970Acct:[id number] Age/Sex: 53 / FADM Date: 05/12/24 Loc: CT Attending Dr: Gaviota MAYERS Ordering Physician: Gaviota Vega Date of Service: 05/12/24 Procedure(s): CT abdomen pelvis w con Accession Number(s): [id number] cc: Mckayla Blas NP The [place] [id number] Patient Name: MITZI MACIAS MRN: [facility]:[id number] date: 1970 Sex: F Assigned Patient Location: CT Current Patient Location: Accession/Order Number: [id number] Exam Date: 05/12/2024 11:15 Report Date: 05/12/2024 [...] M.D. Signed By:05/12/24 1419 DD/ 1416 TD/TT: Powder Worker Tnt: us Generic External Data Provider [facility] Final Result documented in this encounter Visit Diagnoses Not on filedocumented in this encounter Additional Health Concerns Assessment Noted Time PHQ-9 Depression Total Score: 3 01/17/20 24 10:08 AM EDT documented as of this encounter Care Teams Box Worker Relationship Specialty Start Date End Date Ty Amin MD [address] [place] [address] PCP - General Family Medicine 09/20/23 Mckayla Blas NP [address] [place] [address] PCP - [facility] 09/07/23 01/11/25 Mckayla Blas NP [address] [place] [address] Nurse Practitioner Family Medicine 09/20/23 documented as of this encounter
--- OUTSIDE RECORDS SUMMARY | 2025-02-20 11:47 | XMS_ITS | Encounter Summary ---
[facility] Organization [facility] Address [id number] [address] [place] [address] Care Team Providers Care Housekeeping Worker Name Role Phone JuanjoseMckayla carcamo Krystal CAR WORKER HELPER-PLASTIC CUTTER Primary Care Provider Encounter Details Date Type Department Care Team (Late st Contact Info) Description 06/11/2020 Orders Only [facility] [address] [place] [address] External, Scanning Provider Social History Tobacco Use [...] on filedocumented in this encounter Care Teams Housekeeping Worker Relationship Specialty Start Date End Date Mckayla Blas, CAR WORKER HELPER-PLASTIC CUTTER [address] [place] [address] PCP - General Nurse Practitioner 09/25/18 documented as of this encounter
--- OUTSIDE RECORDS SUMMARY | 2025-02-20 11:47 | XMS_ITS | Patient Health Record ---
Author Organization [facility] [place] Address [address] [place] [address] Care Team Providers Care Degreaser Name Role Phone Mckayla Blas CNP Primary Care Provider Unavail able Armando Yañez Unavailable [phone] Allergies No Known Allergies Results Component Value Reference Range Notes PROF CHEM 8 (BAS METB) (Not yet reviewed by provider) Interpretation: Performing Lab: Notes/Report: [facility] , Sodium 142 136-145 mmol/L Potassium [...] Performing Lab: see note ML - [facility] LB CBC AUTO DIFF (Not yet revie wed by provider) Interpretation: Performing Lab: Notes/Report: [facility] , White Blood Count 12.8 4.0-11.0 [...] Performing Lab: see note ML - [facility] LB VC SEGMENTAL PRESSURES (Not yet reviewed by provider) Interpretation: Performing Lab: Notes/Report: Source Facility: [place] [address] [place] [address] Vein Report Signed Patient: MITZI MACIAS MR#: [id number] : 1970 Acct:[id number] Age/Sex: 53 / F ADM Date: 04/24/24 Loc: VC Attending Dr: Rafael Gongora Ordering Physician: Rafael Gongora Date of Service: 04/24/24 Procedure(s): VC SEGMENTAL PRESSURES Accession Number(s): [id number] cc: Mckayla Blas NP; Rafael Gongora [place] [address] Patient Name: MITZI MACIAS MRN: [facility]:[id number] date: 1970 Sex: F Assigned Patient Location: VC Current Patient Location: VC Accession/Order Number: [id number] Exam Date: 04/24/2024 10:25 Report Date: 04/24/2024 11:20 At the request of: RAFAEL GONGORA Procedure: VC SEGMENTAL PRESSURES EXAM: VC SEGMENTAL PRESSURES HISTORY: R09.89 COMPARISON: None. FINDINGS: Segmental pressures presented as follows (right, left) in mmHg. Brachial: 169, 166 Upper thigh: Not obtained Lower thigh: 129, 119 Calf: 124, 106 DPA: 108, 105 MANAGER CLINICAL: 100, 91 1st Toe: 124, 142 ISABELLE: [...] Signed By: 04/24/24 1123 DD/ 1120 TD/TT: Family Protection Specialist: [place] [address] Vein Report Signed Patient: JASON MACIAS MR#: [id number] : 1970 Acct:[id number] Age/Sex: 53 / F ADM Date: 04/24/24 Loc: VC Attending Dr: Nanci Gongora Ordering Physician: Rafael Gongora Date of Service: 04/24/24 Procedure(s): VC SEGMENTAL PRESSURES Accession Number(s): [id number] cc: Mckayla Blas NP ; Rafael Gongora [place] [id number] Patient Name: MITZI MACIAS MRN: [id number] date: 1970 Sex: F Assigned Patient Location: VC Current Patient Location: VC Accession/Order Numb er: [id number] Exam Date: 10:25 Report Date: 04/24/2024 11:20 At the request of: RAFAEL GONGORA Procedure: VC SEGMEN KARY PRESSURES EXAM: VC SEGMENTAL PRESSURES HISTORY: R09.89 COMPARISON: None. FINDINGS: Segmental pressures presented as follows (right, left) in mmHg. Brachial: 169, 166 Upper thigh: Not obtained Lower thigh: 129, 119 Calf: 124, 106 DPA: 108, 105 MANAGER CLINICAL: 100, 91 1st Toe: 124, 142 ISABELLE: [...] Signed By: 04/24/24 1123 DD/ 1120 TD/TT: Family Protection Specialist: Reason For Referral No Information Medications [...] Days Active Vitamin D (Ergocalciferol) 1.25 MG (42653 UT) Oral for 90 Days Activ e Breztri Aerosphere 160-9-4.8 MCG/ACT Inhalation for 30 Days Active Simvastatin 10 MG Oral for 90 Days Active Roflumilast 250 MCG Oral for 28 Days Active Immunizations Vaccine Route Administration Date Status Comme nts Flu, Fluzone (78472) 6-35mo, multi-dose vial (4772-5179) Unknown 05/18/2023 Administered Pneumococcal (Pneumovax 23) Unknown [...] ulcer due to type 2 diabetes mellitus (6902487592704) Type 2 diabetes mellitus with foot ulcer (E11.621) Active confirmed Problem 296352659 Morbid (severe) obesity due to excess calories (E66.01) Active confirmed Problem Venous ulcer of lower extremity due to chronic peripheral venous hypertension (368600023844091) Chronic venous hypertension (idiopathic) with ulcer of left lower extremity (I87.312) Active confirmed Problem Chronic non-pressure ulcer of calf extending to fat level (2268177017979062 1) Non-pressure chronic ulcer of other part of right lower leg with fat layer exposed (L97.812) Active confirmed Problem Chronic ulcer of skin of lower leg (disorder) (8657699357025037 4) Non-pressure chronic ulcer of other part of left lower leg limited to breakdown of skin (L97.821) Active confirmed Problem 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 exposed (L97.822) Active confirmed Problem Long-term current use of inhaled steroid (139393658) jail (current) use of inhaled steroids (Z79.51) Active confirmed Problem COPD - Chronic obstructive pulmonary disease (09722357) COPD (chronic obstructive pulmonary disease) (J44.9) Active confirmed Problem Hypertension (53745499) HTN (hypertension) (I10) Active confirmed Problem Obstructive sleep apnea syndrome (57544980) DANIEL (obstructive sleep apnea) (G47.33) Active confirmed Problem Lumbar radiculopathy (318292666) Lumbar radiculopathy (M54.16) Active confirmed Problem Diabetes mellitus type 2 (disorder) (31923768) DM2 (diabetes mellitus, type 2) (E11.9) Active confirmed Problem 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) Cigarette nicotine dependence with nicotine-induced disorder (F17.219) Active confirmed Problem Leukocytosis (551306895) Leukocytosis (D72.829) Active confirmed Problem Acute exacerbation of chronic obstructive airways disease (533921254) COPD with exacerbation (J44.1) Active confirmed Problem 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 (I87.313) Active confirmed Problem Non-prs chr ulce r oth prt l low leg limited to brkdwn skin (L97.821) Active confirmed Problem Stasis dermatitis co-occurrent with venous ulcer of right lower extremity due to chronic peripheral venous hypertension (881341272105828) Idiopathic chronic venous hypertension of right lower extremity with ulcer (I87.311) Active confirmed Problem Chronic venous hypertension with ulcer and inflammation involving left side (I87.332) Active confirmed Problem Abnormal arterial blood gas (107363726) Elevated carbon dioxide level (R79.81) Active confirmed Problem Skin ulcer of right knee, limited to breakdown of skin (L97.811) Active confirmed Encounters Encounter Location Date Provider Diagnosis [facility] [address] [place] [address] 04/07/2024 Armando Yañez [facility] [address] [place] [address] 12/02/2024 Armando De Leon Plan Of Treatment Pending Test Test Name Order Date CBC AUTO DIFF 08/27/2024 PROF CHEM 8 (BAS METB) 08/27/2024 VC SEGMENTAL PRESSURES 04/24/2024 Insurance Providers Payer Name Payer Address Payer Phone Subscriber Number Group Number Insured Name Patient Relationship to Insured Coverage Start Date Coverage End Date [facility] [employer] [employer] [address] [place] [address] [id number] Mitzi Macias Self - patient is the [...] (hyperlipidemia) E78.5 Elevated carbon dioxide level R79.81 technician terminal and repeater (current) use of inhaled stero ids Z79.51 Anxiety and depression F41.8 GERD (gastroesophageal reflux disease) K 21.9 Surgical History Surgery Date(Month/Year) toe surgery cholecystectomy hysterectomy Hospitalization History Reason Date(Month/Year) Pneumonia -[facility] 08/31/2023 COPD Exacerbation-[facility] 09/10/2023
--- OUTSIDE RECORDS SUMMARY | 2025-02-20 11:47 | XMS_ITS | Encounter Summary ---
Author Organization [facility] Address [address] [place] [address] Care Team Providers Care Science Analyst Name Role Phone Ty Amin MD Primary Care Provider [phone] Mckayla Blas NP Unavailable [phone] Mckayla Blas NP Unavailable [phone] Encounter Details Date Type Department Care [...] often do you attend chur ch or lutheran services? 1 to 4 times per year [...] Recorded Patient Health Questionnaire-2 Score 1 01/17/2024 [facility] - Occupational [...] Office Visit [facility] [address] [place] [address] Mckayla Blas NP [address] [place] [address] 05/28/2025 10:30 AM EST Office Visit [facility] [address] [place] [address] Rain Souza MD [address] [place] [address] 02/01/2026 6:00 PM EDT Office Visit [facility] [address] [place] [address] Mckyala Blas, SILVANO [address] [place] [address] documented as of this encounter Procedures Procedure Name Priority Date/Time Associated Diagnosis Comments MR LUMBAR SPINE WO CON 05/12/2024 2:41 PM EST documented in this encounter Results * MR LUMBAR SPINE WO CON (05/12/2024 2:41 PM EST) Anatomical Region Laterality Modality Other 05/12/2024 2:41 PM EST Narrative 05/12/2024 2:43 [place] [address] Magnetic Resonance Report Signed Patient: MITZI MACIAS MR#: [id number] : 1970 Acct:[id number] Age/Sex: 53 / F ADM Date: 05/12/24 Loc: MRI Attending Dr: Celestina Chin NP Ordering Physician: Celestina Chin NP Date of Service: 05/12/24 Procedure(s): MR lumbar spine wo con Accession Number(s): [id number] cc: Mckayla Blas GENERAL II FARMWORKER; Celestina Chin NP [place] [id number] Patient Name: MITZI MACIAS MRN: [id number] date: 1970 Sex: F Assigned Patient Location: MRI Current Patient Location: CT Accession/Order Number: [id number] Exam Date: 05/12/2024 09:21 Report Date: 05/12/2024 [...] Signed By: 05/12/24 1443 DD/ 1441 TD/TT: Cable Inspector: Procedure Note Radiology, Radiologist, MD - 05/12/2024 [place] [address] Magnetic Resonance Report Signed Patient: MITZI MACIAS R#: [id number] : 1970Acct:[id number] Age/Sex: 53 / FADM Date: 05/12/24 Loc: MRI Attending Dr: Celestina Chin NP Ordering Physician: Celestina Chin NP Date of Service: 05/12/24 Procedure(s): MR lumbar spine wo con Accession Number(s): [id number] cc: Mckayla Blas NP; Celestina Chin NP The [address] [address] Patient Name: MITZI MACIAS MRN: [facility]:[id number] date: 1970 Sex: F Assigned Patient Location: MRI Current Patient Location: CT Accession/Order Number: [id number] Exam Date: 05/12/2024 09:21 Report Date: 05/12/2024 [...] M.D. Signed By:05/12/24 1443 DD/ 1441 TD/TT: Cable Inspector: us Generic External Data Provider [facility] Final Result documented in this encounter Visit Diagnoses Not on filedocumented in this encounter Additional Health Concerns Assessment Noted Time PHQ-9 Depression Total Score: 3 01/17/20 24 10:08 AM EDT documented as of this encounter Care Teams Science Analyst Relationship Specialty Start Date End Date Ty Amin MD [address] [place] [address] PCP - General Family Medicine 09/20/23 Mckayla Blas NP [address] [place] [address] PCP - [facility] 09/07/23 01/11/25 Mckayla Blas NP [address] [place] [address] Nurse Practitioner Family Medicine 09/20/23 documented as of this encounter
--- OUTSIDE RECORDS SUMMARY | 2025-02-20 11:50 | XMS_ITS | CCD ---
Author Organization [facility] Care Team Providers Care Bacon Skinner Name Role Phone James Benavidez Primary Care Provider JAMES BENAVIDEZ Primary Care Unavailable SHENDGE, VITHAL Admitting Unavailable SHENDGE, VITHAL Attending Unavailable AICHHOLZ, MCKAYLA Primary Care Unavailable AICHHOLZ, MCKAYLA Referring Unavailable AICHHOLZ, MCKAYLA J Primary Care Physician Tico, Stephanie Unavailable OLE RAMIREZ Attending Unavailable OLE RAMIREZ Consulting Unavailable AICHHOLZ, MANAGER ORACLE RETAIL MCKAYLA Primary Care Unavailable OLE RAMIREZ Admitting Unavailable ANTONY SHRESTHA Consulting Unavailable ALONDRA ., UMBERTO Admitting Unavailable ALONDRA ., UMBERTO Attending Unavailable AICHHOLZ, MANAGER ORACLE RETAIL MCKAYLA Primary Care Unavailable AFSANEH Loera, DR BOLANOS Consulting Unavailable MARYANNE POWER Consulting Unavailable GLENN KERR Consulting Unavailable YOMAIRA KERR Consulting Unavailable HATTIE GOFF Consulting Unavailable ALONDRA ., UMBERTO Consulting Unavailable TICO, STEPHANIE Attending Unavailable TICO, STEPHANIE Consulting Unavailable AICHHOLZ, MANAGER ORACLE RETAIL MCKAYLA Primary Care Unavailable TICO, STEPHANIE Admitting Unavailable REGLA ., DR DUMONT Admitting Unavailable AICHHOLZ, MANAGER ORACLE RETAIL MCKAYLA Primary Care Unavailable REGLA ., DR DUMONT Attending Unavailable ARAUZ ., DR DUMONT Consulting Unavailable COLLIN HUERTAS Consulting Unavailable CECILIA KAUFMAN Admitting Unavailable CECILIA KAUFMAN Attending Unavailable AICHHOLZ, MANAGER ORACLE RETAIL MCKAYLA Primary Care Unavailable RAFAEL GONGORA Attending Unavailable RAFAEL GONGORA Admitting Unavailable AICHHOLZ, MANAGER ORACLE RETAIL MCKAYLA Primary Care Unavailable AICHHOLZ, MANAGER ORACLE RETAIL MCKAYLA Admitting Unavailable AICHHOLZ, MANAGER ORACLE RETAIL MCKAYLA Primary Care Unavailable AICHHOLZ, MANAGER ORACLE RETAIL MCKAYLA Attending Unavailable AICHHOLZ, MANAGER ORACLE RETAIL MCKAYLA Consulting Unavailable LAKSHMIPATHY ., NARENDRANATH Attending Anette vailable LAKSHMIPATHY ., NARENDRANATH Consulting Anette vailable LAKSHMIPATHY ., NARENDRANATH Admitting Anette vailable AICHHOLZ, MANAGER ORACLE RETAIL MCKAYLA Primary Care Unavailable VALENZUELA ., GIL Consulting Unavailable MORTENSEN ., DR CHAPARRO Aguillon Attending Unavailable MORTENSEN ., DR CHAPARRO Aguillon Admitting Unavailable AICHHOLZ, MANAGER ORACLE RETAIL MCKAYLA Primary Care Unavailable VALENZUELA ., GIL Consulting Unavailable MORTENSEN ., DR CHAPARRO Aguillon Admitting Unavailable AICHHOLZ, MANAGER ORACLE RETAIL MCKAYLA Primary Care Unavailable MORTENSEN ., DR CHAPARRO Aguillon Attending Unavailable HALKER ., SUBHASH Consulting Unavailable LAKSHMIPATHY ., NARENDRANATH Admitting Anette vailable LAKSHMIPATHY ., NARENDRANATH Attending Anette vailable AICHHOLZ, MANAGER ORACLE RETAIL MCKAYLA Primary Care Unavailable MORTENSEN ., DR CHAPARRO Aguillon Attending Unavailable MORTENSEN ., DR CHAPARRO Aguillon Admitting Unavailable VALENZUELA ., GIL Consulting Unavailable AICHHOLZ, MANAGER ORACLE RETAIL MCKAYLA Primary Care Unavailable VALENZUELA ., GIL Consulting Unavailable MORTENSEN ., DR CHAPARRO Aguillon Attending Unavailable MORTENSEN ., DR CHAPARRO Aguillon Admitting Unavailable AICHHOLZ, MANAGER ORACLE RETAIL MCKAYLA Primary Care Unavailable HATTIE BRODERICK Attending Unavailable HATTIE BRODERICK Admitting Unavailable AICHHOLZ, MANAGER ORACLE RETAIL MCKAYLA Primary Care Unavailable AICHHOLZ, MANAGER ORACLE RETAIL MCKAYLA Admitting Unavailable AICHHOLZ, MANAGER ORACLE RETAIL MCKAYLA Consulting Unavailable AICHHOLZ, MANAGER ORACLE RETAIL MCKAYLA Primary Care Unavailable AICHHOLZ, MANAGER ORACLE RETAIL MCKAYLA Attending Unavailable AICHHOLZ, MANAGER ORACLE RETAIL MCKAYLA Primary Care Unavailable MISC, DR LESLIE Admitting Unavailable MISC, DR LESLIE Attending Unavailable MISC, DR LESLIE Consulting Unavailable DIAB ., MARIANO Admitting Unavailable DIAB ., MARIANO Attending Unavailable DIAB ., MARIANO Consulting Unavailable AICHHOLZ, MANAGER ORACLE RETAIL MCKAYLA Primary Care Unavailable RASTEGAR, RICCO Consulting Unavailable AICHHOLZ, MANAGER ORACLE RETAIL MCKAYLA Admitting Unavailable AICHHOLZ, MANAGER ORACLE RETAIL MCKAYLA Primary Care Unavailable AICHHOLZ, MANAGER ORACLE RETAIL MCKAYLA Attending Unavailable AICHHOLZ, MANAGER ORACLE RETAIL MCKAYLA Consulting Unavailable DR PATRICIA VELOZ Consulting Unavailable TAMLYN ., CECILIA Attending Unavailable TAMLYN ., CECILIA Admitting Unavailable DR PATRICIA VELOZ Consulting Unavailable AICHHOLZ, MANAGER ORACLE RETAIL MCKAYLA Primary Care Unavailable TAMLYN ., CECILIA Consulting Unavailable MORTENSEN ., DR CHAPARRO Aguillon Attending Unavailable FESTUS ., DR CHAPARRO Aguillon Consulting Unavailable FESTUS ., DR CHAPARRO Aguillon Admitting Unavailable AICHHOLZ, MANAGER ORACLE RETAIL MCKAYLA Primary Care Unavailable HATTIE BRODERICK Attending Unavailable HATTIE BRODERICK Consulting Unavailable HATTIE BRODERICK Admitting Unavailable AICHHOLZ, MANAGER ORACLE RETAIL MCKAYLA Primary Care Unavailable HATTIE BAUTISTA Unavailable AICHHOLZ, SAYAD MCKAYLA Admitting Unavailable AICHHOLZ, MANAGER ORACLE RETAIL MCKAYLA Attending Unavailable AICHHOLZ, MANAGER ORACLE RETAIL MCKAYLA Consulting Unavailable AICHHOLZ, MANAGER ORACLE RETAIL MCKAYLA Primary Care Unavailable Brennan PHIPPS, Ty Primary Care Provider [phone] Brennan PHIPPS, Ty Primary Care Provider [phone] Aichholtalia PUBLIC HEALTH INSPECTOR, Mckayla Unavailable Aichholz PUBLIC HEALTH INSPECTOR, Mckayla Unavailable Elbert ARAUZ Attending Unavailable [...] Medication Allergies] Propensity to adverse reactions (disorder) [facility] Repository Medications Current Medications Medication [...] Start Date: 02/06/22 Status: Ordered HYDROcodone-acet aminophen (Onekama) 5-325 MG tablet 1 tablet 3 (three) times a day as needed for severe pain. Active take 1 tablet by vandana twice daily as needed Onekama 5-325 MG 1 tablet as needed Orally [...] every week ergocalciferol (Vitamin D2) 1.25 MG (07170 UT) capsule Indications: Vitamin D deficiency, unspecified Take 1 capsule (1.25 mg) by mouth 1 (one) time per week 12 capsule 1 01/16/2025 04/10/2025 Active Start: 10-27-2024 End: 01-19-2025 take 1 capsule by mouth two times weekly ergocalciferol (Vitamin D2) 1.25 MG (52696 UT) capsule Indications: Vitamin D deficiency, unspecified Take 1 capsule (1.25 mg) by mouth 2 (two) times a week 24 capsule 1 10/27/2024 01/19/2025 Active Start: 04-06-2024 End: 10-27-2024 take 1 capsule by mouth every week ergocalciferol (Vitamin D2) 1.25 MG (83973 UT) capsule Indications: Vitamin D deficiency, unspecified [...] 02/06/22 Status: Ordered take 1 tablet by [facility] every twenty-four hours Meloxicam 7.5 MG 1 [...] 02-06-2022 Chronic Other aftercare (1 source) Other m[facility]p (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 therapy; Translations: [OTH CORRECTION CURRENT DRUG THERAPY] Onset: 12-05-2022 Episodic Other aftercare (1 source) 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 Unclassified (1 source) INDUSTRIAL MACHINE SYSTEM TECHNICIAN INJECT NONINSULN ANTIDIAB; Translations: [INDUSTRIAL MACHINE SYSTEM TECHNICIAN INJECT NONINSULN ANTIDIAB] Onset: 12-05-2022 Unclassified [...] sources) detention (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; Translations: [INDUSTRIAL MACHINE SYSTEM TECHNICIAN CURRENT USE OF INSULIN] Onset: 12-05-2022 [...] Range Facility Orders Onlyon 01-30-2025 Orders Only [id number] Mitzi Macias 1970 F Date Provider Department Center 01/30/2025 [id number], HISTORICAL [facility] Family History Problem Relation Age of Onset Heart attack Paternal Grandmother Family Status - Relation Status Age at Mother Father Paternal Grandmother Normal [facility] CA ECHO DOPPLER COMPLETEon 0 01-29-2025 [place] [address] Cardiology Report Signed Patient: MITZI MACIAS MR#: [id number] : 1970 Acct:[id number] Age/Sex: 54 / F ADM Date: 01/29/25 Loc: CARD Attending Dr: AMI ORO APRN Ordering Physician: AMI ORO APRN Date of Service: 01/29/25 Procedure(s): CA echo doppler complete Accession Number(s): [id number] cc: Mckayla Blas PUBLIC HEALTH INSPECTOR; AMI ORO APRN Patient Name: MITZI MACIAS MR#: [id number] : 1970 Exam Date: 01/29/2025 Ordering Doctor: AMI ORO [facility] ECHOCARDIOGRAM REPORT PROCEDURE: CA ECHO DOPPLER COMPLETE [...] HERRERA Signed By: 01/29/251839 DD/ 39 TD/TT: Customer Operations Specialist: [facility] Radiology, Radiologist, MD - 01/29/2025 [place] [address] Cardiology Report Signed Patient: MITZI MACIAS MR#: [id number] : 1970 Acct:[id number] Age/Sex: 54 / F ADM Date: 01/29/25 Loc: CARD Attending Dr: AMI ORO APRN Ordering Physician: AMI ORO APRN Date of Service: 01/29/25 Procedure(s): CA echo doppler complete Accession Number(s): [id number] cc: Mckayla Blas PUBLIC HEALTH INSPECTOR; AMI ORO APRN Patient Name: MITZI MACIAS MR#: [id number] : 1970 Exam Date: 01/29/2025 Ordering Doctor: [...] HERRERA Signed By: 01/29/251839 DD/ 39 TD/TT: Customer Operations Specialist: [facility] Radiology Study observation (narrative) [facility] CA ECHO DOPPLER COMPLETEOrde red By: Radiologist Radiology on 01-29-2025 [facility] Work Phone: Glucose (Bld) [Mass/Vol]on 0 01-29-2025 Glucose Blood, POC 121 mg/dL [facility] Laboratory - Hematology and Cell countson 01-29-2025 HbA1c (Bld) [Mass fraction] 8.4 % [facility] No Panel Informationon 01-29 Interpretation and review of laboratory results Abnormal [facility] Office Visiton 01-06-2025 Follow-up visit [id number] Mitzi Macias 1970 F Date Provider Department Center 01/06/2025 AMI SARABIA CARD [facility] Family History Problem Relation Age of Onset Heart attack Paternal Grandmother Family Status - Relation Status Age at Mother Father Paternal Grandmother Level of Service:02163 CA OFFICE/OUTPATIENT ESTABLISHED MOD MDM 30 MIN Reason for Visit and Comments: Congestive Heart Failure [127] Hypertension [529583] Hyperlipidemia [182] Normal [facility] 36on 10-21-2024 36 Regarding lab results from 10/08/2024: MD Mickie Merritt MA Lipids, ALT AST, and BMP are normal. HbA1c was not performed. Continue current management. LM on patient's VM. Normal [facility] Glucose (Bld) [Mass/Vol]Orde red By: Mica Sauceda on 10-08-2024 Glucose Blood, POC 97 mg/dL [facility] Laboratory - Hematology and Cell countson 10-08-2024 HbA1c (Bld) [Mass fraction] 7.4 % [facility] No Panel InformationOrdered By: Mica Sauceda on 10-08-2024 [facility] TBH UA (CLEAN/CATCH) MICROSC OPIC IF INDICATEon 10-08-2024 BILIRUBIN URINE Negative NEGATIVE [facility] BLOOD URINE Negative NEGATIVE [facility] Clarity (U) CLEAR CLEAR [facility] Color (U) YELLOW YELLOW [facility] GLUCOSE URINE UA Negative NEGATIVE mg/dL [facility] Interpretation and review of laboratory results Abnormal [facility] Ketones Ql (U) Negative NEGATIVE mg/dL [facility] Leukocyte esterase Test strip Ql (U) Negative NEGATIVE [facility] NITRITE URINE Negative NEGATIVE [facility] pH (U) 5.5 [pH] 5.0 - 9.0 [facility] Protein (U) [Mass/Vol] 30 mg/dL Abnormal NEG/TRACE NO [facility] SPECIFIC GRAVITY URINE >=1.030 Abnormal 1.005 - 1.025 [facility] URINE MICROSCOPIC INDICATED YES [facility] UROBILINOGEN URINE 1.0 EU/dL 0.2 - 1.0 EU/dL [facility] ALL CBC WITH AUTO DIFFon BASOPHILS ABSOLUTE AUTO 0.1 [facility] Basophils/100 WBC (Bld) 0.5 % 0.2 - 2.0 % [facility] Eosinophils/100 WBC (Bld) 1.9 % 0.9 - 7.0 % [facility] Erythrocyte distribution width (RBC) [Ratio] 14.6 % 11.0 - 15.0 % [facility] Hematocrit (Bld) [Volume fraction] 50.9 % High 36.0 - 48.0 % [facility] Hemoglobin (Bld) [Mass/Vol] 16.1 g/dL High 12.0 - 16.0 g/dL [facility] IMMATURE GRANULOCYTES ABS AUTO 0.04 High [facility] Immature granulocytes/100 WBC (Bld) 0.3 % 0.0 - 0.5 % [facility] Interpretation and review of laboratory results Abnormal [facility] LYMPHOCYTES ABSOLUTE AUTO 3.2 [facility] Lymphocytes/100 WBC (Bld) 25.1 % 20.5 - 60.0 % [facility] MCH (RBC) [Entitic mass] 29.2 pg 26.7 - 34.0 pg [facility] MCHC (RBC) [Mass/Vol] 31.6 g/dL 29.9 - 35.2 g/dL [facility] MCV (RBC) [Entitic vol] 92.2 fL 81.0 - 99.0 fL [facility] MONOCYTES ABSOLUTE AUTO 0.7 [facility] Monocytes/100 WBC (Bld) 5.2 % 1.7 - 12.0 % [facility] NEUTROPHILS ABSOLUTE AUTO 8.6 High [facility] Neutrophils/100 WBC (Bld) 67 % 43.0 - 75.0 % [facility] Platelet mean volume (Bld) [Entitic vol] 12.8 fL 9.5 - 13.5 fL [facility] EO # 0.2 [facility] PLT 122 Low [facility] RBC 5.52 High [facility] WBC 12.8 High [facility] Office Visiton 08-08-2024 Follow-up visit [id number] Mitzi Macias 1970 F Date Provider Department Center 08/08/2024 [id number] BRIDGES [facility] Family History Problem Relation Age of Onset Heart attack Paternal Grandmother Family Status - Relation Status Age at Paternal Grandmother Level of Service:26168 CA OFFICE/OUTPATIENT ESTABLISHED MOD MDM 30 MIN Reason for Visit and Comments: Congestive Heart Failure [127] - Denies chest pain, SOB, and palpitations. Hypertension [351677] Hyperlipidemia [182] LVH [Other] Edema [[id number]] - Denies worsening edema. She sees wound care for RLE ulcer. She was seeing the vein specialists here in [facility] but they are moving to [place] in a few weeks. Normal [facility] Glucose (Bld) [Mass/Vol]Orde red By: Mica Sauceda on 05-27-2024 Glucose Blood, POC 158 mg/dL [facility] Laboratory - Hematology and Cell countson 05-27-2024 HbA1c (Bld) [Mass fraction] 9.2 % [facility] No Panel InformationOrdered By: Mica Sauceda on 05-27-2024 [facility] CREATININEon 05-12-2024 Creatinine [Mass/Vol] 0.92 mg/dL 0.55 - 1.02 mg/dL [facility] GFR/1.73 sq M.predicted CKD-EPI (S/P/Bld) [Vol rate/Area] >60 >=60 mL/min/1.73m 2 [facility] EGFR-NON AF BANGLADESHI >60 >=60 mL/min/1.73m 2 [facility] CBC AUTO DIFFon 12-06-2022 BASO # 0.0 103/ul Normal 0.0-0.1 [facility] Comment on above: Performed By: #### C BC #### [facility] [address] [address] [address] Ashlie Hills Basophils/100 WBC (Bld) 0.1 % Critically low 0.2-2.0 [facility] Comment on above: Performed By: #### C BC #### [facility] [address] [address] [address] Ashlie Hills EO # 0.0 103/ul Normal 0.0-0.7 [facility] Comment on above: Performed By: #### C BC #### [facility] [address] [address] [address] Ashlie Hills Eosinophils/100 WBC (Bld) 0.0 % Critically low 0.9-7.0 [facility] Comment on above: Performed By: #### C BC #### [facility] [address] [place] [address] Dr. Ashlie Hills Erythrocyte distribution width (RBC) [Ratio] 14.9 % Normal 11.0-15.0 [facility] Comment on above: Performed By: #### C BC #### [facility] [address] [place] [address] Dr. Ashlie Hills Hematocrit (Bld) [Volume fraction] 46.2 % Normal 36.0-48.0 [facility] Comment on above: Performed By: #### C BC #### [facility] [address] [place] [address] Dr. Ashlie Hills Hemoglobin (Bld) [Mass/Vol] 14.7 g/dL Normal 12.0-16.0 [facility] Comment on above: Performed By: #### C BC #### [facility] [address] [address] [address] Ashlie Hills IG # 0.06 10e3/ul Critically high 0.00-0.03 [facility] Comment on above: Performed By: #### C BC #### [facility] [address] [place] [address] Dr. Ashlie Hills IG % 0.4 % Normal 0.0-0.5 [facility] Comment on above: Performed By: #### C BC #### [facility] [address] [place] [address] Dr. Ashlie Hills LYMPH # 1.3 103/ul Normal 1.2-3.8 [facility] Comment on above: Performed By: #### C BC #### [facility] [address] [place] [address] Dr. Ashlie Hills Lymphocytes/100 WBC (Bld) 9.4 % Critically low 20.5-60.0 [facility] Comment on above: Performed By: #### C BC #### [facility] [address] [place] [address] Dr. Ashlie Hills MANUAL DIFF REQ NO Normal [facility] Comment on above: Performed By: #### C BC #### [facility] [address] [place] [address] Dr. Ashlie Hills MCH (RBC) [Entitic mass] 28.4 pg Normal 26.7-34.0 [facility] Comment on above: Performed By: #### C BC #### [facility] [address] [place] [address] Dr. Ashlie Hills MCHC (RBC) [Mass/Vol] 31.8 g/dL Normal 29.9-35.2 [facility] Comment on above: Performed By: #### C BC #### [facility] [address] [place] [address] Dr. Ashlie Hills MCV (RBC) [Entitic vol] 89.4 fL Normal 81.0-99.0 [facility] Comment on above: Performed By: #### C BC #### [facility] [address] [place] [address] Dr. Ashlie Hills MONO # 0.5 103/ul Normal 0.3-0.8 [facility] Comment on above: Performed By: #### C BC #### [facility] [address] [place] [address] Dr. Ashlie Hills Monocytes/100 WBC (Bld) 3.4 % Normal 1.7-12.0 [facility] Comment on above: Performed By: #### C BC #### [facility] [address] [place] [address] Dr. Ashlie Hills NEUT # 11.8 103/ul Critically high 1.4-6.5 [facility] Comment on above: Performed By: #### C BC #### [facility] [address] [place] [address] Dr. Ashlie Hills Neutrophils/100 WBC (Bld) 86.7 % Critically high 43.0-75.0 [facility] Comment on above: Performed By: #### C BC #### [facility] [address] [place] [address] Dr. Ashlie Hills Platelet mean volume (Bld) [Entitic vol] 12.6 fL Normal 9.5-13.5 [facility] Comment on above: Performed By: #### C BC #### [facility] [address] [place] [address] Dr. Ashlie Hills PLT 133 103/ul Critically low 150-450 [facility] Comment on above: Performed By: #### C BC #### [facility] [address] [place] [address] Dr. Ashlie Hills RBC 5.17 106/ul Normal 4.20-5.40 [facility] Comment on above: Performed By: #### C BC #### [facility] [address] [place] [address] Dr. Ashlie Hills WBC 13.6 103/ul Critically high 4.0-11.0 [facility] Comment on above: Performed By: #### C BC #### [facility] [address] [place] [address] Dr. Ashlie Hills MAGNESIUMon 12-06-2022 Magnesium [Mass/Vol] 2.2 mg/dL Normal 1.8-2.4 [facility] Comment on above: Performed By: #### I NFLUAB #### [facility] [address] [place] [address] Dr. Ashlie Hills POINT OF CARE GLUCOSEon - Glucose [Mass/Vol] 340 mg/dL Critically high 74-106 T [facility] Comment on above: Performed By: #### P OCGLUC #### [facility] [address] [address] [address] Ashlie Hills Glucose [Mass/Vol] 276 mg/dL Critically high 74-106 [facility] Comment on above: Performed By: #### C BC #### [facility] [address] [address] [address] Ashlie Hills Glucose [Mass/Vol] 333 mg/dL Critically high 74-106 [facility] Comment on above: Performed By: #### C BC #### [facility] [address] [address] [address] Ashlie Hills PROF CHEM 8 (BAS METB)on Anion gap [Moles/Vol] 10.9 mmol/L Normal [facility] Comment on above: Performed By: #### I NFLUAB #### [facility] [address] [place] [address] Dr. Ashlie Hills Calcium [Mass/Vol] 9.3 mg/dL Normal 8.5-10.1 [facility] Comment on above: Performed By: #### I NFLUAB #### [facility] [address] [address] [address] Ashlie Hills Chloride [Moles/Vol] 103 mmol/L Normal 98-107 [facility] Comment on above: Performed By: #### I NFLUAB #### [facility] [address] [place] [address] Dr. Ashlie Hills CO2 [Moles/Vol] 31.2 mmol/L Normal 21.0-32.0 [facility] Comment on above: Performed By: #### I NFLUAB #### [facility] [address] [address] [address] Ashlie Hills Creatinine [Mass/Vol] 0.96 mg/dL Normal 0.55-1.02 [facility] Comment on above: Performed By: #### I NFLUAB #### [facility] [address] [address] [address] Ashlie Hills EGFR-AF BANGLADESHI >60 Normal >=60 [facility] Comment on above: Performed By: #### I NFLUAB #### [facility] [address] [address] [address] Ashlie Hills EGFR-NON AF BANGLADESHI >60 Normal >=60 [facility] Comment on above: Performed By: #### I NFLUAB #### [facility] [address] [address] [address] Ashlie Hills Glucose [Mass/Vol] 288 mg/dL Critically high 74-106 T [facility] Comment on above: Performed By: #### I NFLUAB #### [facility] [address] [address] [address] Ashlie Hills Potassium [Moles/Vol] 5.1 mmol/L Normal 3.5-5.1 [facility] Comment on above: Performed By: #### I NFLUAB #### [facility] [address] [place] [address] Dr. Ashlie Hills Sodium [Moles/Vol] 140 mmol/L Normal 136-145 [facility] Comment on above: Performed By: #### I NFLUAB #### [facility] [address] [place] [address] Dr. Ashlie Hills Urea nitrogen [Mass/Vol] 30.0 mg/dL Critically high 7.0-18.0 [facility] [facility] Comment on above: Performed By: #### I NFLUAB #### [facility] [address] [place] [address] Dr. Ashlie Hills Urea nitrogen/Creatinine [Mass ratio] 31.2 mg/mg Normal [facility] Comment on above: Performed By: #### I NFLUAB #### [facility] [address] [place] [address] Dr. Ashlie Hills CBC AUTO DIFFon 12-05-2022 BASO # 0.0 103/ul Normal 0.0-0.1 [facility] Comment on above: Performed By: #### C BC #### [facility] [address] [place] [address] Dr. Ashlie Hills Basophils/100 WBC (Bld) 0.4 % Normal 0.2-2.0 [facility] Comment on above: Performed By: #### C BC #### [facility] [address] [address] [address] Ashlie Hills EO # 0.0 103/ul Normal 0.0-0.7 [facility] Comment on above: Performed By: #### C BC #### [facility] [address] [place] [address] Dr. Ashlie Hills Eosinophils/100 WBC (Bld) 0.0 % Critically low 0.9-7.0 [facility] Comment on above: Performed By: #### C BC #### [facility] [address] [place] [address] Dr. Ashlie Hills Erythrocyte distribution width (RBC) [Ratio] 14.8 % Normal 11.0-15.0 [facility] Comment on above: Performed By: #### C BC #### [facility] [address] [place] [address] Dr. Ashlie Hills Hematocrit (Bld) [Volume fraction] 49.9 % Critically high 36.0-48.0 [facility] Comment on above: Performed By: #### C BC #### [facility] [address] [place] [address] Dr. Ashlie Hills Hemoglobin (Bld) [Mass/Vol] 15.7 g/dL Normal 12.0-16.0 [facility] Comment on above: Performed By: #### C BC #### [facility] [address] [place] [address] Dr. Ashlie Hills IG # 0.04 10e3/ul Critically high 0.00-0.03 [facility] Comment on above: Performed By: #### C BC #### [facility] [address] [place] [address] Dr. Ashlie Hills IG % 0.5 % Normal 0.0-0.5 [facility] Comment on above: Performed By: #### C BC #### [facility] [address] [place] [address] Dr. Ashlie Hills LYMPH # 1.1 103/ul Critically low 1.2-3.8 [facility] Comment on above: Performed By: #### C BC #### [facility] [address] [address] [address] Ashlie Hills Lymphocytes/100 WBC (Bld) 12.7 % Critically low 20.5-60.0 [facility] Comment on above: Performed By: #### C BC #### [facility] [address] [address] [address] Ashlie Hills MANUAL DIFF REQ NO Normal [facility] Comment on above: Performed By: #### C BC #### [facility] [address] [address] [address] Ashlie Hills MCH (RBC) [Entitic mass] 28.1 pg Normal 26.7-34.0 [facility] Comment on above: Performed By: #### C BC #### [facility] [address] [place] [address] Dr. Ashlie Hills MCHC (RBC) [Mass/Vol] 31.5 g/dL Normal 29.9-35.2 [facility] Comment on above: Performed By: #### C BC #### [facility] [address] [place] [address] Dr. Ashlie Hills MCV (RBC) [Entitic vol] 89.3 fL Normal 81.0-99.0 [facility] Comment on above: Performed By: #### C BC #### [facility] [address] [place] [address] Dr. Ashlie Hills MONO # 0.1 103/ul Critically low 0.3-0.8 [facility] Comment on above: Performed By: #### C BC #### [facility] [address] [place] [address] Dr. Ashlie Hills Monocytes/100 WBC (Bld) 1.3 % Critically low 1.7-12.0 [facility] Comment on above: Performed By: #### C BC #### [facility] [address] [place] [address] Dr. Ashlie Hills NEUT # 7.2 103/ul Critically high 1.4-6.5 [facility] Comment on above: Performed By: #### C BC #### [facility] [address] [address] [address] Ashlie Hills Neutrophils/100 WBC (Bld) 85.1 % Critically high 43.0-75.0 [facility] Comment on above: Performed By: #### C BC #### [facility] [address] [address] [address] Ashlie Hills Platelet mean volume (Bld) [Entitic vol] 12.2 fL Normal 9.5-13.5 [facility] Comment on above: Performed By: #### C BC #### [facility] [address] [address] [address] Ashlie Hills PLT 116 103/ul Critically low 150-450 [facility] Comment on above: Performed By: #### C BC #### [facility] [address] [place] [address] Dr. Ashlie Hills RBC 5.59 106/ul Critically high 4.20-5.40 [facility] Comment on above: Performed By: #### C BC #### [facility] [address] [address] [address] Ashlie Hills WBC 8.5 103/ul Normal 4.0-11.0 [facility] Comment on above: Performed By: #### C BC #### [facility] [address] [place] [address] Dr. Ashlie Hills CTA CHEST WO W [...] GOFF Date: 2022-12-05 01:52 Normal [facility] MAGNESIUMon 12-05-2022 Magnesium [Mass/Vol] 2.1 mg/dL Normal 1.8-2.4 [facility] Comment on above: Performed By: #### P OCGLUC #### [facility] [address] [address] [address] Ashlie Hills POINT OF CARE GLUCOSEon 11-08 Glucose [Mass/Vol] 293 mg/dL Critically high [address] [place] [address] Comment on above: Performed By: #### P OCGLUC #### [facility] [address] [address] [address] Ashlie Hills Glucose [Mass/Vol] 269 mg/dL Critically high [facility]106 [facility] Comment on above: Performed By: #### P OCGLUC #### [facility] [address] [address] [address] Ashlie Hills Glucose [Mass/Vol] 223 mg/dL Critically high [address] [place] [address] Comment on above: Performed By: #### C VDAGS #### [facility] [address] [address] [address] Ashlie Hills PROF CHEM 8 (BAS METB)on Anion gap [Moles/Vol] 11.6 mmol/L Normal [facility] Comment on above: Performed By: #### P OCGLUC #### [facility] [address] [address] [address] Ashlie Hills Calcium [Mass/Vol] 9.2 mg/dL Normal 8.5-10.1 [facility] Comment on above: Performed By: #### P OCGLUC #### [facility] [address] [address] [address] Ashlie Hills Chloride [Moles/Vol] 102 mmol/L Normal 98-107 [facility] Comment on above: Performed By: #### P OCGLUC #### [facility] [address] [address] [address] Ashlie Hills CO2 [Moles/Vol] 28.7 mmol/L Normal 21.0-32.0 [facility] Comment on above: Performed By: #### P OCGLUC #### [facility] [address] [address] [address] Ashlie Hills Creatinine [Mass/Vol] 1.04 mg/dL Critically high 0.55-1.02 [facility] Comment on above: Performed By: #### P OCGLUC #### [facility] [address] [address] [address] Ashlie Hills EGFR-AF BANGLADESHI >60 Normal >=60 [facility] Comment on above: Performed By: #### P OCGLUC #### [facility] [address] [address] [address] Ashlie Hills EGFR-NON AF BANGLADESHI 56 mL/min/1.73m2 Critically low >=60 [facility] Comment on above: Performed By: #### P OCGLUC #### [facility] [address] [address] [address] Ashlie Hills Glucose [Mass/Vol] 231 mg/dL Critically high 74-106 [facility] Comment on above: Performed By: #### P OCGLUC #### [facility] [address] [address] [address] Ashlie Hills Potassium [Moles/Vol] 4.3 mmol/L Normal 3.5-5.1 [facility] Comment on above: Performed By: #### P OCGLUC #### [facility] [address] [place] [address] Dr. Ashlie Hills Sodium [Moles/Vol] 138 mmol/L Normal 136-145 [facility] Comment on above: Performed By: #### P OCGLUC #### [facility] [address] [place] [address] Dr. Ashlie Hills Urea nitrogen [Mass/Vol] 17.0 mg/dL Normal 7.0-18.0 [facility] Comment on above: Performed By: #### P OCGLUC #### [facility] [address] [place] [address] Dr. Ashlie Hills Urea nitrogen/Creatinine [Mass ratio] 16.3 mg/mg Normal [facility] Comment on above: Performed By: #### P OCGLUC #### [facility] [address] [place] [address] Dr. Ashlie Hills RESPIRATORY PANEL PLUSon Adenovirus Not detected Normal NOT DETECTED [facility] Comment on above: Performed By: #### C VDAGS #### [facility] [address] [place] [address] Dr. Ashlie Shaffer. Parapertusis Not detected Normal NOT DETECTED [facility] Comment on above: Performed By: #### C VDAGS #### [facility] [address] [place] [address] Dr. Ashlie Shaffer. Pertussis Not detected Normal NOT DETECTED [facility] Comment on above: Performed By: #### C VDAGS #### [facility] [address] [place] [address] Dr. Ashlie Hills Chlamydia Pneumoniae Not detected Normal NOT DETECTED [facility] Comment on above: Performed By: #### C VDAGS #### [facility] [address] [place] [address] Dr. Ashlie Hills Coronavirus 229E Not detected Normal NOT DETECTED [facility] Comment on above: Performed By: #### C VDAGS #### [facility] [address] [place] [address] Dr. Ashlie Hills Coronavirus HKU1 Not detected Normal NOT DETECTED [facility] Comment on above: Performed By: #### C VDAGS #### [facility] [address] [place] [address] Dr. Ashlie Hills Coronavirus NL63 Not detected Normal NOT DETECTED [facility] Comment on above: Performed By: #### C VDAGS #### [facility] [address] [address] [address] Ashlie Hills Coronavirus OC43 Not detected Normal NOT DETECTED [facility] Comment on above: Performed By: #### C VDAGS #### [facility] [address] [address] [address] Ashlie Hills Influenza A H1 Not detected Normal NOT DETECTED [facility] Comment on above: Performed By: #### C VDAGS #### [facility] [address] [place] [address] Dr. Ashlie Hills Influenza A H1 2009 Not detected Normal NOT DETECTED [facility] Comment on above: Performed By: #### C VDAGS #### [facility] [address] [place] [address] Dr. Ashlie Hills Influenza A H3 Not detected Normal NOT DETECTED [facility] Comment on above: Performed By: #### C VDAGS #### [facility] [address] [place] [address] Dr. Ashlie Hills Influenza B Not detected Normal NOT DETECTED [facility] Comment on above: Performed By: #### C VDAGS #### [facility] [address] [place] [address] Dr. Ashlie Hills Metapneumovirus Not detected Normal NOT DETECTED [facility] Comment on above: Performed By: #### C VDAGS #### [facility] [address] [place] [address] Dr. Ashlie Hills Mycoplas. Pneumoniae Not detected Normal NOT DETECTED [facility] Comment on above: Performed By: #### C VDAGS #### [facility] [address] [address] [address] Ashlie Hills Parainfluenza 1 Not detected Normal NOT DETECTED [facility] Comment on above: Performed By: #### C VDAGS #### [facility] [address] [place] [address] Dr. Ashlie Hills Parainfluenza 2 Not detected Normal NOT DETECTED [facility] Comment on above: Performed By: #### C VDAGS #### [facility] [address] [place] [address] Dr. Ashlie Hills Parainfluenza 3 Detected Abnormal NOT DETECTED [facility] Comment on above: Performed By: #### C VDAGS #### [facility] [address] [place] [address] Dr. Ashlie Hills Parainfluenza 4 Not detected Normal NOT DETECTED [facility] Comment on above: Performed By: #### C VDAGS #### [facility] [address] [place] [address] Dr. Ashlie Hills Rhino/Enterovirus Not detected Normal NOT DETECTED [facility] Comment on above: Performed By: #### C VDAGS #### [facility] [address] [place] [address] Dr. Ashlie Hills RP2 Header 1 RESPIRATORY PANEL: VIRUSES Normal [facility] Comment on above: Performed By: #### C VDAGS #### [facility] [address] [place] [address] Dr. Ashlie Hills RP2 Header 2 RESPIRATORY PANEL: BACTERIA Normal [facility] Comment on above: Performed By: #### C VDAGS #### [facility] [address] [place] [address] Dr. Ashlie Hills RSV Not detected Normal NOT DETECTED [facility] Comment on above: Performed By: #### C VDAGS #### [facility] [address] [place] [address] Dr. Ashlie Hills SARS-CoV-2 (COVID-19) RNA MADDY+probe Ql (Unsp spec) Not detected Normal NOT DETECTED [facility] Comment on above: Performed By: #### C VDAGS #### [facility] [address] [place] [address] Dr. Ashlie Hills XR CHEST 1 Von [...] POWER Date: 2022-12-04 22:23 Normal [facility] BLOOD GASES BTYon 12-04-2022 02 MODE ROOM AIR Normal [facility] Comment on above: Performed By: #### C BC #### [facility] [address] [place] [address] Dr. Ashlie Hills ALLENS TEST Positive [facility] Comment on above: Performed By: #### C BC #### [facility] [address] [place] [address] Dr. Ashlie Hills Base excess Calc (Bld) [Moles/Vol] 5.4 mmol/L Critically high -2.0-2.0 [facility] Comment on above: Performed By: #### C BC #### [facility] [address] [place] [address] Dr. Ashlie Hills BIPAP PRESSURE Normal [facility] Comment on above: Performed By: #### C BC #### [facility] [address] [place] [address] Dr. Ashlie Hills CPAP [facility] Comment on above: Performed By: #### C BC #### [facility] [address] [place] [address] Dr. Ashlie Hills FIO2 [facility] Comment on above: Performed By: #### C BC #### [facility] [address] [place] [address] Dr. Ashlie Hills HCO3 (Bld) [Moles/Vol] 30.8 mmol/L Critically high 22.0-26 .0 [facility] Comment on above: Performed By: #### C BC #### [facility] [address] [place] [address] Dr. [facility] on above: Performed By: #### C BC #### [facility] [address] [address] [address] Ashlie Hills MINUTE VOLUME Normal [facility] Comment on above: Performed By: #### C BC #### [facility] [address] [place] [address] Dr. Ashlie Hills Oxygen (Bld) [Partial pressure] 46.3 mm[Hg] Critically low 80.0-100.0 [facility] Comment on above: Performed By: #### C BC #### [facility] [address] [place] [address] Dr. Ashlie Hills Oxygen saturation in Blood 83.9 % Critically low 95.0-100.0 [facility] Comment on above: Performed By: #### C BC #### [facility] [address] [place] [address] Dr. Ashlie Hills PCO2 54.2 mmHg Critically high 35.0-45.0 [facility] Comment on above: Performed By: #### C BC #### [facility] [address] [place] [address] Dr. Ashlie Hills PEEP [facility] Comment on above: Performed By: #### C BC #### [facility] [address] [place] [address] Dr. Ashlie Hills pH (Bld) 7.363 [pH] Normal 7.350-7.450 [facility] Comment on above: Performed By: #### C BC #### [facility] [address] [place] [address] Dr. Ashlie Hills PIP [facility] Comment on above: Performed By: #### C BC #### [facility] [address] [place] [address] Dr. Ashlie Hills PS [facility] Comment on above: Performed By: #### C BC #### [facility] [address] [place] [address] Dr. Ashlie Hills PUNCTURE SITE LR [facility] Comment on above: Performed By: #### C BC #### [facility] [address] [place] [address] Dr. Ashlie Hills [facility] Comment on above: Performed By: #### C BC #### [facility] [address] [place] [address] Dr. Ashlie Hills [facility] Comment on above: Performed By: #### C BC #### [facility] [address] [place] [address] Dr. Ashlie Hills [facility] Comment on above: Performed By: #### C BC #### [facility] [address] [place] [address] Dr. Ashlie Hills BNPon 12-04-2022 Natriuretic peptide B (Bld) [Mass/Vol] 76.0 pg/mL Normal <=900.0 [facility] Comment on above: Performed By: #### P OCGLUC #### [facility] [address] [place] [address] Dr. Ashlie Hills CBC AUTO DIFFon 12-04-2022 BASO # 0.1 103/ul Normal 0.0-0.1 [facility] Comment on above: Performed By: #### C BC #### [facility] [address] [place] [address] Dr. Ashlie Hills Basophils/100 WBC (Bld) 0.6 % Normal 0.2-2.0 [facility] Comment on above: Performed By: #### C BC #### [facility] [address] [place] [address] Dr. Ashlie Hills EO # 0.2 103/ul Normal 0.0-0.7 [facility] Comment on above: Performed By: #### C BC #### [facility] [address] [place] [address] Dr. Ashlie Hills Eosinophils/100 WBC (Bld) 1.9 % Normal 0.9-7.0 [facility] Comment on above: Performed By: #### C BC #### [facility] [address] [place] [address] Dr. Ashlie Hills Erythrocyte distribution width (RBC) [Ratio] 15.0 % Normal 11.0-15.0 [facility] Comment on above: Performed By: #### C BC #### [facility] [address] [place] [address] Dr. Ashlie Hills Hematocrit (Bld) [Volume fraction] 49.1 % Critically high 36.0-48.0 [facility] Comment on above: Performed By: #### C BC #### [facility] [address] [place] [address] Dr. Ashlie Hills Hemoglobin (Bld) [Mass/Vol] 15.6 g/dL Normal 12.0-16.0 [facility] Comment on above: Performed By: #### C BC #### [facility] [address] [place] [address] Dr. Ashlie Hills IG # 0.02 10e3/ul Normal 0.00-0.03 [facility] Comment on above: Performed By: #### C BC #### [facility] [address] [place] [address] Dr. Ashlie Hills IG % 0.2 % Normal 0.0-0.5 [facility] Comment on above: Performed By: #### C BC #### [facility] [address] [place] [address] Dr. Ashlie Hills LYMPH # 2.8 103/ul Normal 1.2-3.8 [facility] Comment on above: Performed By: #### C BC #### [facility] [address] [place] [address] Dr. Ashlie Hills Lymphocytes/100 WBC (Bld) 29.9 % Normal 20.5-60.0 [facility] Comment on above: Performed By: #### C BC #### [facility] [address] [place] [address] Dr. Ashlie Hills MANUAL DIFF REQ NO Normal [facility] Comment on above: Performed By: #### C BC #### [facility] [address] [place] [address] Dr. Ashlie Hills [facility] (RBC) [Entitic mass] 28.5 pg Normal 26.7-34.0 [facility] Comment on above: Performed By: #### C BC #### [facility] [address] [address] [address] Ashlie Hills MCHC (RBC) [Mass/Vol] 31.8 g/dL Normal 29.9-35.2 [facility] Comment on above: Performed By: #### C BC #### [facility] [address] [address] [address] Ashlie Hills MCV (RBC) [Entitic vol] 89.8 fL Normal 81.0-99.0 [facility] Comment on above: Performed By: #### C BC #### [facility] [address] [address] [address] Ashlie Hills MONO # 1.0 103/ul Critically high 0.3-0.8 [facility] Comment on above: Performed By: #### C BC #### [facility] [address] [address] [address] Ashlie Hills Monocytes/100 WBC (Bld) 10.6 % Normal 1.7-12.0 [facility] Comment on above: Performed By: #### C BC #### [facility] [address] [place] [address] Dr. Ashlie Hills NEUT # 5.3 103/ul Normal 1.4-6.5 [facility] Comment on above: Performed By: #### C BC #### [facility] [address] [address] [address] Ashlie Hills Neutrophils/100 WBC (Bld) 56.8 % Normal 43.0-75.0 [facility] Comment on above: Performed By: #### C BC #### [facility] [address] [address] [address] Ashlie Hills Platelet mean volume (Bld) [Entitic vol] 12.5 fL Normal 9.5-13.5 [facility] Comment on above: Performed By: #### C BC #### [facility] [address] [address] [address] Ashlie Hills PLT 109 103/ul Critically low 150-450 [facility] Comment on above: Performed By: #### C BC #### [facility] [address] [address] [address] Ashlie Hills RBC 5.47 106/ul Critically high 4.20-5.40 [facility] Comment on above: Performed By: #### C BC #### [facility] [address] [place] [address] Dr. Ashlie Hills WBC 9.4 103/ul Normal 4.0-11.0 [facility] Comment on above: Performed By: #### C BC #### [facility] [address] [place] [address] Dr. Ashlie Hills PROF 14(COMP METB)on 023 Albumin [Mass/Vol] 2.9 g/dL Critically low 3.4-5.0 [facility] Comment on above: Performed By: #### C BC #### [facility] [address] [place] [address] Dr. Ashlie Hills Albumin/Globulin [Mass ratio] 0.6 {ratio} Normal [facility] Comment on above: Performed By: #### C BC #### [facility] [address] [place] [address] Dr. Ashlie Hills ALP [Catalytic activity/Vol] 64 U/L Normal 46-116 [facility] Comment on above: Performed By: #### C BC #### [facility] [address] [place] [address] Dr. Ashlie Hills ALT [Catalytic activity/Vol] 16 U/L Normal 14-59 [facility] Comment on above: Performed By: #### C BC #### [facility] [address] [place] [address] Dr. Ashlie Hills Anion gap [Moles/Vol] 9.6 mmol/L Normal [facility] Comment on above: Performed By: #### C BC #### [facility] [address] [place] [address] Dr. Ashlie Hills AST [Catalytic activity/Vol] 16 U/L Normal 15-37 [facility] Comment on above: Performed By: #### C BC #### [facility] [address] [address] [address] Ashlie Hills Bilirubin [Mass/Vol] 0.5 mg/dL Normal 0.2-1.0 [facility] Comment on above: Performed By: #### C BC #### [facility] [address] [address] [address] Ashlie Hills Calcium [Mass/Vol] 8.7 mg/dL Normal 8.5-10.1 [facility] Comment on above: Performed By: #### C BC #### [facility] [address] [address] [address] Ashlie Hills Chloride [Moles/Vol] 103 mmol/L Normal 98-107 [facility] Comment on above: Performed By: #### C BC #### [facility] [address] [place] [address] Dr. Ashlie Hills CO2 [Moles/Vol] 30.7 mmol/L Normal 21.0-32.0 [facility] Comment on above: Performed By: #### C BC #### [facility] [address] [place] [address] Dr. Ashlie Hills Creatinine [Mass/Vol] 0.96 mg/dL Normal 0.55-1.02 [facility] Comment on above: Performed By: #### C BC #### [facility] [address] [place] [address] Dr. Ashlie Hills EGFR-AF BANGLADESHI >60 Normal >=60 [facility] Comment on above: Performed By: #### C BC #### [facility] [address] [place] [address] Dr. Ashlie Hills EGFR-NON AF BANGLADESHI >60 Normal >=60 [facility] Comment on above: Performed By: #### C BC #### [facility] [address] [place] [address] Dr. Ashlie Hills Globulin (S) [Mass/Vol] 4.7 g/dL Normal [facility] Comment on above: Performed By: #### C BC #### [facility] [address] [place] [address] Dr. Ashlie Hills Glucose [Mass/Vol] 170 mg/dL Critically high 74-106 [facility] Comment on above: Performed By: #### C BC #### [facility] [address] [address] [address] Ashlie Hills Potassium [Moles/Vol] 4.3 mmol/L Normal 3.5-5.1 [facility] Comment on above: Performed By: #### C BC #### [facility] [address] [address] [address] Ashlie Hills Protein [Mass/Vol] 7.6 g/dL Normal 6.4-8.2 [facility] Comment on above: Performed By: #### C BC #### [facility] [address] [place] [address] Dr. Ashlie Hills Sodium [Moles/Vol] 139 mmol/L Normal 136-145 [facility] Comment on above: Performed By: #### C BC #### [facility] [address] [place] [address] Dr. Ashlie Hills Urea nitrogen [Mass/Vol] 16.0 mg/dL Normal 7.0-18.0 [facility] Comment on above: Performed By: #### C BC #### [facility] [address] [place] [address] Dr. Ashlie Hills Urea nitrogen/Creatinine [Mass ratio] 16.7 mg/mg Normal [facility] Comment on above: Performed By: #### C BC #### [facility] [address] [place] [address] Dr. Ashlie Hills SYMPTOMATIC COVID-19 ANTIGEN on 12-04-2022 EUA Statement SEE BELOW Normal [facility] Comment on above: Result Comment: [...] VDAGS #### [facility] [address] [place] [address] Dr. Ashlie Hills SARS-CoV-2 (COVID-19) RNA MADDY+probe Ql (Unsp spec) Negative Normal NEGATIVE [facility] Comment on above: Performed By: #### C VDAGS #### [facility] [address] [place] [address] Dr. Ashlie Hills TROPONIN, HIGH SENSITIVITYon 12-04-2022 HSTROP 8.9 pg/mL Normal 4.0-51.3 [facility] Comment on above: Result Comment: CUT- OFF POINTS HAVE BEEN ESTABLISHED BASED ON THE FOURTH UNIVERSAL DEFINITIONS OF MYOCARDIAL INFARCTION. THE UPPER REFERENCE LIMIT (URL) OF TROPONIN, DEFINED THE 99TH PERCENTILE OF cTnI DISTRIBUTION IN A REFERENCE POPULATION, HAS BEEN CONFIRMED THE DECISION THRESHOLD FOR CA DIAGNOSIS. Performed By: #### P OCGLUC #### [facility] [address] [place] [address] Dr. Ashlie Hills MICROALBUMIN, RAND URon 11-06 mALB 35.8 mg/dL Critically high <=30.0 [facility] Comment on above: Performed By: #### C VDAGS #### [facility] [address] [place], [place] [id number] Dr. Ashlie Hills UA RANDOM W/MICROSCOPICon BACTERIA NONE SEEN Normal NONE SEEN [facility] Comment on above: Performed By: #### C VDAGS #### [facility] [address] [place] [address] Dr. Ashlie Hills Bilirubin Ql (U) Negative Normal NEGATIVE [facility] Comment on above: Performed By: #### C VDAGS #### [facility] [address] [place] [address] Dr. Ashlie Hills CAST SEEN Abnormal NONE SEEN [facility] Comment on above: Performed By: #### C VDAGS #### [facility] [address] [place] [address] Dr. Ashlie Hills Clarity (U) CLEAR Normal CLEAR [facility] Comment on above: Performed By: #### C VDAGS #### [facility] [address] [place] [address] Dr. Ashlie Hills Color (U) YELLOW Normal YELLOW [facility] Comment on above: Performed By: #### C VDAGS #### [facility] [address] [place] [address] Dr. Ashlie Hills Crystals LM Nom (Urine sed) NONE SEEN Normal NONE SEEN [facility] Comment on above: Performed By: #### C VDAGS #### [facility] [address] [place] [address] Dr. Ashlie Hills Epithelial cells LM Ql (Urine sed) MODERATE Abnormal NONE SEEN /RARE [facility] Comment on above: Performed By: #### C VDAGS #### [facility] [address] [place] [address] Dr. Ashlie Hills Glucose Ql (U) Negative Normal NEGATIVE [facility] Comment on above: Performed By: #### C VDAGS #### [facility] [address] [place] [address] Dr. Ashlie Hills Hemoglobin Ql (U) TRACE-INTACT Abnormal NEGATIVE [facility] Comment on above: Performed By: #### C VDAGS #### [facility] [address] [place] [address] Dr. Ashlie Hills Ketones Ql (U) Negative Normal NEGATIVE [facility] Comment on above: Performed By: #### C VDAGS #### [facility] [address] [place] [address] Dr. Ashlie Hills LEUKOCYTES Negative Normal NEGATIVE [facility] Comment on above: Performed By: #### C VDAGS #### [facility] [address] [place] [address] Dr. Ashlie Hills MUCOUS NONE SEEN Normal NONE SEEN [facility] Comment on above: Performed By: #### C VDAGS #### [facility] [address] [place] [address] Dr. Ashlie Hills Nitrite Ql (U) Negative Normal NEGATIVE [facility] Comment on above: Performed By: #### C VDAGS #### [facility] [address] [place] [address] Dr. Ashlie Hills pH (U) 5.0 [pH] Normal 5-9 [facility] Comment on above: Performed By: #### C VDAGS #### [facility] [address] [place] [address] Dr. Ashlie Hills RBC 0-2 Normal 0-2 [facility] Comment on above: Performed By: #### C VDAGS #### [facility] [address] [place] [address] Dr. Ashlie Hills SPEC GRAVITY 1.030 Abnormal 1.005-<=1.025 [facility] Comment on above: Performed By: #### C VDAGS #### [facility] [address] [place] [address] Dr. Ashlie Hills UA PROTEIN 100 mg/dl Abnormal NEGATIVE/ TRACE [facility] Comment on above: Performed By: #### C VDAGS #### [facility] [address] [place] [address] Dr. Ashlie Hills Urobilinogen Qn (U) 0.2 {Little'U}/dL Normal 0.2 - 1. 0 [facility] Comment on above: Performed By: #### C VDAGS #### [facility] [address] [place] [address] Dr. Ashlie Hills WBC NONE SEEN Normal NONE SEEN [facility] Comment on above: Performed By: #### C VDAGS #### [facility] [address] [place] [address] Dr. Ashlie Hills CBC AUTO DIFFon 11-22-2022 BASO # 0.0 103/ul Normal 0.0-0.1 [facility] Comment on above: Performed By: #### C BC #### [facility] [address] [place] [address] Dr. Ashlie Hills Basophils/100 WBC (Bld) 0.3 % Normal 0.2-2.0 [facility] Comment on above: Performed By: #### C BC #### [facility] [address] [place] [address] Dr. Ashlie Hills EO # 0.4 103/ul Normal 0.0-0.7 [facility] Comment on above: Performed By: #### C BC #### [facility] [address] [place] [address] Dr. Ashlie Hills Eosinophils/100 WBC (Bld) 3.0 % Normal 0.9-7.0 [facility] Comment on above: Performed By: #### C BC #### [facility] [address] [place] [address] Dr. Ashlie Hills Erythrocyte distribution width (RBC) [Ratio] 15.3 % Critically high 11.0-15.0 [facility] Comment on above: Performed By: #### C BC #### [facility] [address] [place] [address] Dr. Ashlie Hills Hematocrit (Bld) [Volume fraction] 52.4 % Critically high 36.0-48.0 [facility] Comment on above: Performed By: #### C BC #### [facility] [address] [place] [address] Dr. Ashlie Hills Hemoglobin (Bld) [Mass/Vol] 16.8 g/dL Critically high 12.0-16.0 [facility] Comment on above: Performed By: #### C BC #### [facility] [address] [place] [address] Dr. Ashlie Hills IG # 0.04 10e3/ul Critically high 0.00-0.03 [facility] Comment on above: Performed By: #### C BC #### [facility] [address] [place] [address] Dr. Ashlie Hills IG % 0.3 % Normal 0.0-0.5 [facility] Comment on above: Performed By: #### C BC #### [facility] [address] [place] [address] Dr. Ashlie Hills LYMPH # 4.5 103/ul Critically high 1.2-3.8 [facility] Comment on above: Performed By: #### C BC #### [facility] [address] [place] [address] Dr. Ashlie Hills Lymphocytes/100 WBC (Bld) 33.2 % Normal 20.5-60.0 [facility] Comment on above: Performed By: #### C BC #### [facility] [address] [place] [address] Dr. Ashlie Hills MANUAL DIFF REQ NO Normal [facility] Comment on above: Performed By: #### C BC #### [facility] [address] [place] [address] Dr. Ashlie Hills MCH (RBC) [Entitic mass] 28.0 pg Normal 26.7-34.0 [facility] Comment on above: Performed By: #### C BC #### [facility] [address] [place] [address] Dr. Ashlie Hills MCHC (RBC) [Mass/Vol] 32.1 g/dL Normal 29.9-35.2 [facility] Comment on above: Performed By: #### C BC #### [facility] [address] [place] [address] Dr. Ashlie Hills MCV (RBC) [Entitic vol] 87.3 fL Normal 81.0-99.0 [facility] Comment on above: Performed By: #### C BC #### [facility] [address] [place] [address] Dr. Ashlie Hills MONO # 0.8 103/ul Normal 0.3-0.8 [facility] Comment on above: Performed By: #### C BC #### [facility] [address] [place] [address] Dr. Ashlie Hills Monocytes/100 WBC (Bld) 5.7 % Normal 1.7-12.0 [facility] Comment on above: Performed By: #### C BC #### [facility] [address] [place] [address] Dr. Ashlie Hills NEUT # 7.8 103/ul Critically high 1.4-6.5 [facility] Comment on above: Performed By: #### C BC #### [facility] [address] [place] [address] Dr. Ashlie Hills Neutrophils/100 WBC (Bld) 57.5 % Normal 43.0-75.0 [facility] Comment on above: Performed By: #### C BC #### [facility] [address] [place] [address] Dr. Ashlie Hills Platelet mean volume (Bld) [Entitic vol] 12.0 fL Normal 9.5-13.5 [facility] Comment on above: Performed By: #### C BC #### [facility] [address] [place] [address] Dr. Ashlie Hills PLT 152 103/ul Normal 150-450 [facility] Comment on above: Performed By: #### C BC #### [facility] [address] [place] [address] Dr. Ashlie Hills RBC 6.00 106/ul Critically high 4.20-5.40 [facility] Comment on above: Performed By: #### C BC #### [facility] [address] [place] [address] Dr. Ashlie Hills WBC 13.6 103/ul Critically high 4.0-11.0 [facility] Comment on above: Performed By: #### C BC #### [facility] [address] [place] [address] Dr. Ashlie Hills LIPID PROFILEon 11-22-2022 CHOL-HDL RATIO NORM SEE BELOW Normal [facility] Comment on above: Result Comment: 3.3 - 4.4 LOW RISK 4.4 - 7.1 AVERAGE RISK 7.1 - 11.0 MODERATE RISK >11.0 HIGH RISK Performed By: #### C BC #### [facility] [address] [place] [address] Dr. Ashlie Hills Cholesterol [Mass/Vol] 139 mg/dL Normal <=200 [facility] Comment on above: Performed By: #### C BC #### [facility] [address] [place] [address] Dr. Ashlie Hills Cholesterol in HDL [Mass/Vol] 35 mg/dL Critically low 40-60 [facility] Comment on above: Performed By: #### C BC #### [facility] [address] [address] [address] Ashlie Hills Cholesterol in LDL [Mass/Vol] 67.4 mg/dL Normal [facility] Comment on above: Performed By: #### C BC #### [facility] [address] [address] [address] Ashlie Hills Cholesterol.total/Chol esterol in HDL [Mass ratio] 4.0 {ratio} Normal [facility] Comment on above: Performed By: #### C BC #### [facility] [address] [place] [address] Dr. Ashlie Hills HDL NORMAL > or = 60 mg/dl - LOW CARDIOVASCULAR RISK <40 mg/dl - HIGH CARDIOVASCULAR RISK Normal [facility] Comment on above: Performed By: #### C BC #### [facility] [address] [place] [address] Dr. Ashlie Hills LDL CALC NORMAL SEE BELOW Normal [facility] Comment on above: Result Comment: <100 mg/dl OPTIMAL 100 - 129 mg/dl NEAR OR ABOVE OPTIMAL 130 - 159 mg/dl BORDERLINE HIGH 160 - 189 mg/dl HIGH >190 mg/dl VERY HIGH Performed By: #### C BC #### [facility] [address] [place] [address] Dr. Ashlie Hills Triglyceride [Mass/Vol] 183 mg/dL Critically high <=150 [facility] Comment on above: Performed By: #### C BC #### [facility] [address] [place] [address] Dr. Ashlie Hills VLDL CALC 36.6 mg/dL Normal [facility] Comment on above: Performed By: #### C BC #### [facility] [address] [place] [address] Dr. Ashlie Hills MG MAMM SCREEN 3D ALEX CADon 11-22-2022 MG MAMM SCREEN 3D ALEX CAD Patient: MITZI MACIAS Exam Date: 11/22/2022 : 1970 Gender:F Ordering : SAYDA [employer] Admission #: [id number] Family : Order #: [id number] CLICK HERE TO VIEW EXAM RADIOLOGY REPORT [...] LOCATION: [facility] BREAST COMPOSITION: Almost entirely fatty. FINDINGS: DIAGNOSTIC [...] Veloz M.D. on 11/22/2022 at 12:09 Normal [facility] PROF 14(COMP METB)on 023 Albumin [Mass/Vol] 3.0 g/dL Critically low 3.4-5.0 Th e [facility] Comment on above: Performed By: #### C BC #### [facility] [address] [place], [place] [address] Dr. Ashlie Hills Albumin/Globulin [Mass ratio] 0.6 {ratio} Normal [facility] Comment on above: Performed By: #### C BC #### [facility] [address] [place], [place] [address] Dr. Ashlie Hills ALP [Catalytic activity/Vol] 68 U/L Normal 46-116 [facility] Comment on above: Performed By: #### C BC #### [facility] [address] [address] [address] Ashlie Hills ALT [Catalytic activity/Vol] 14 U/L Normal 14-59 [facility] Comment on above: Performed By: #### C BC #### [facility] [address] [address] [address] Ashlie Hills Anion gap [Moles/Vol] 12.1 mmol/L Normal [facility] Comment on above: Performed By: #### C BC #### [facility] [address] [address] [address] Ashlie Hills AST [Catalytic activity/Vol] 9 U/L Critically low 15-37 [facility] Comment on above: Performed By: #### C BC #### [facility] [address] [place] [address] Dr. Ashlie Hills Bilirubin [Mass/Vol] 0.4 mg/dL Normal 0.2-1.0 [facility] Comment on above: Performed By: #### C BC #### [facility] [address] [place] [address] Dr. Ashlie Hills Calcium [Mass/Vol] 9.0 mg/dL Normal 8.5-10.1 [facility] Comment on above: Performed By: #### C BC #### [facility] [address] [place] [address] Dr. Ashlie Hills Chloride [Moles/Vol] 105 mmol/L Normal 98-107 [facility] Comment on above: Performed By: #### C BC #### [facility] [address] [place] [address] Dr. Ashlie Hills CO2 [Moles/Vol] 30.7 mmol/L Normal 21.0-32.0 [facility] Comment on above: Performed By: #### C BC #### [facility] [address] [place] [address] Dr. Ashlie Hills Creatinine [Mass/Vol] 0.77 mg/dL Normal 0.55-1.02 [facility] Comment on above: Performed By: #### C BC #### [facility] [address] [address] [address] Ashlie Hills EGFR-AF BANGLADESHI >60 Normal >=60 [facility] Comment on above: Performed By: #### C BC #### [facility] [id number] Ashlie Hills EGFR-NON AF BANGLADESHI >60 Normal >=60 [facility] Comment on above: Performed By: #### C BC #### [facility] [address] [address] [address] Ashlie Hills Globulin (S) [Mass/Vol] 4.8 g/dL Normal [facility] Comment on above: Performed By: #### C BC #### [facility] [address] [address] [address] Ashlie Hills Glucose [Mass/Vol] 162 mg/dL Critically high 74-106 [facility] Comment on above: Performed By: #### C BC #### [facility] [address] [place] [address] Dr. Ashlie Hills Potassium [Moles/Vol] 3.8 mmol/L Normal 3.5-5.1 [facility] Comment on above: Performed By: #### C BC #### [facility] [address] [place] [address] Dr. Ashlie Hills Protein [Mass/Vol] 7.8 g/dL Normal 6.4-8.2 [facility] Comment on above: Performed By: #### C BC #### [facility] [address] [address] [address] Ashlie Hills Sodium [Moles/Vol] 144 mmol/L Normal 136-145 [facility] Comment on above: Performed By: #### C BC #### [facility] [address] [place] [address] Dr. Ashlie Hills Urea nitrogen [Mass/Vol] 24.0 mg/dL Critically high 7.0-18.0 [facility] Comment on above: Performed By: #### C BC #### [facility] [address] [place] [address] Dr. Ashlie Hills Urea nitrogen/Creatinine [Mass ratio] 31.2 mg/mg Normal [facility] Comment on above: Performed By: #### C BC #### [facility] [address] [place] [address] Dr. Ashlie Hills CBC AUTO DIFFon 10-05-2022 BASO # 0.1 103/ul Normal 0.0-0.1 [facility] Comment on above: Performed By: #### C BC #### [facility] [address] [place] [address] Dr. Ashlie Hills Basophils/100 WBC (Bld) 0.6 % Normal 0.2-2.0 [facility] Comment on above: Performed By: #### C BC #### [facility] [address] [place] [address] Dr. Ashlie Hills EO # 0.3 103/ul Normal 0.0-0.7 [facility] Comment on above: Performed By: #### C BC #### [facility] [address] [place] [address] Dr. Ashlie Hills Eosinophils/100 WBC (Bld) 2.1 % Normal 0.9-7.0 [facility] Comment on above: Performed By: #### C BC #### [facility] [address] [place] [address] Dr. Ashlie Hills Erythrocyte distribution width (RBC) [Ratio] 15.9 % Critically high 11.0-15.0 [facility] Comment on above: Performed By: #### C BC #### [facility] [address] [place] [address] Dr. Ashlie Hills Hematocrit (Bld) [Volume fraction] 51.8 % Critically high 36.0-48.0 [facility] Comment on above: Performed By: #### C BC #### [facility] [address] [place] [address] Dr. Ashlie Hills Hemoglobin (Bld) [Mass/Vol] 16.6 g/dL Critically high 12.0-16.0 [facility] Comment on above: Performed By: #### C BC #### [facility] [address] [place] [address] Dr. Ashlie Hills IG # 0.03 10e3/ul Normal 0.00-0.03 [facility] Comment on above: Performed By: #### C BC #### [facility] [address] [place] [address] Dr. Ashlie Hills IG % 0.2 % Normal 0.0-0.5 [facility] Comment on above: Performed By: #### C BC #### [facility] [address] [place] [address] Dr. Ashlie Hills LYMPH # 3.9 103/ul Critically high 1.2-3.8 [facility] Comment on above: Performed By: #### C BC #### [facility] [address] [place] [address] Dr. Ashlie Hills Lymphocytes/100 WBC (Bld) 31.7 % Normal 20.5-60.0 [facility] Comment on above: Performed By: #### C BC #### [facility] [address] [place] [address] Dr. Ashlie Hills MANUAL DIFF REQ NO Normal [facility] Comment on above: Performed By: #### C BC #### [facility] [address] [place] [address] Dr. Ashlie Hills MCH (RBC) [Entitic mass] 27.9 pg Normal 26.7-34.0 [facility] Comment on above: Performed By: #### C BC #### [facility] [address] [place] [address] Dr. Ashlie Hills MCHC (RBC) [Mass/Vol] 32.0 g/dL Normal 29.9-35.2 [facility] Comment on above: Performed By: #### C BC #### [facility] [address] [place] [address] Dr. Ashlie Hills MCV (RBC) [Entitic vol] 87.1 fL Normal 81.0-99.0 [facility] Comment on above: Performed By: #### C BC #### [facility] [address] [place] [address] Dr. Ashlie Hills MONO # 0.7 103/ul Normal 0.3-0.8 [facility] Comment on above: Performed By: #### C BC #### [facility] [address] [place] [address] Dr. Ashlie Hills Monocytes/100 WBC (Bld) 5.8 % Normal 1.7-12.0 [facility] Comment on above: Performed By: #### C BC #### [facility] [address] [place] [address] Dr. Ashlie Hills NEUT # 7.3 103/ul Critically high 1.4-6.5 [facility] Comment on above: Performed By: #### C BC #### [facility] [address] [place] [address] Dr. Ashlie Hills Neutrophils/100 WBC (Bld) 59.6 % Normal 43.0-75.0 [facility] Comment on above: Performed By: #### C BC #### [facility] [address] [place] [address] Dr. Ashlie Hills Platelet mean volume (Bld) [Entitic vol] 11.7 fL Normal 9.5-13.5 [facility] Comment on above: Performed By: #### C BC #### [facility] [address] [place] [address] Dr. Ashlie Hills PLT 117 103/ul Critically low 150-450 [facility] Comment on above: Performed By: #### C BC #### [facility] [address] [place] [address] Dr. Ashlie Hills RBC 5.95 106/ul Critically high 4.20-5.40 [facility] Comment on above: Performed By: #### C BC #### [facility] [address] [place] [address] Dr. Ashlie Hills WBC 12.3 103/ul Critically high 4.0-11.0 [facility] Comment on above: Performed By: #### C BC #### [facility] [address] [place] [address] ABD/PELV W CONon [...] Normal [facility] URINE PROFILEon 3 Bilirubin Ql (U) Negative Normal NEGATIVE [facility] Comment on above: Performed By: #### P OCGLUC #### [facility] [address] [place] [address] Dr. Ashlie Hills Clarity (U) CLEAR Normal CLEAR [facility] Comment on above: Performed By: #### P OCGLUC #### [facility] [address] [place] [address] Dr. Ashlie Hills Color (U) YELLOW Normal YELLOW [facility] Comment on above: Performed By: #### P OCGLUC #### [facility] [address] [place] [address] Dr. Ashlie Hills ERUADE A micrscopic examination will be performed if indicated. Normal [facility] Comment on above: Performed By: #### P OCGLUC #### [facility] [address] [place] [address] Dr. Ashlie Hills Glucose Ql (U) Negative Normal NEGATIVE [facility] Comment on above: Performed By: #### P OCGLUC #### [facility] [address] [address] [address] Ashlie Hills Hemoglobin Ql (U) Negative Normal NEGATIVE [facility] Comment on above: Performed By: #### P OCGLUC #### [facility] [address] [address] [address] Ashlie Hills Ketones Ql (U) Negative Normal NEGATIVE [facility] Comment on above: Performed By: #### P OCGLUC #### [facility] [address] [address] [address] Ashlie Hills LEUKOCYTES Negative Normal NEGATIVE [facility] Comment on above: Performed By: #### P OCGLUC #### [facility] [address] [place] [address] Dr. Ashlie Hills Nitrite Ql (U) Negative Normal NEGATIVE [facility] Comment on above: Performed By: #### P OCGLUC #### [facility] [address] [place] [address] Dr. Ashlie Hills pH (U) 6.0 [pH] Normal 5-9 [facility] Comment on above: Performed By: #### P OCGLUC #### [facility] [address] [address] [address] Ashlie Hills Protein (U) [Mass/Vol] 100 mg/dL Abnormal NEGAT YURY/ TRACE [facility] Comment on above: Performed By: #### P OCGLUC #### [facility] [address] [address] [address] Ashlie Hills SPEC GRAVITY 1.010 Normal 1.005-<=1.025 [facility] Comment on above: Performed By: #### P OCGLUC #### [facility] [address] [place] [address] Dr. Ashlie Hills UR MICRO IND INDICATED Normal [facility] Comment on above: Performed By: #### P OCGLUC #### [facility] [address] [place] [address] Dr. Ashlie Hills Urobilinogen Qn (U) 1.0 {Little'U}/dL Normal 0.2 - 1. 0 [facility] Comment on above: Performed By: #### P OCGLUC #### [facility] [address] [place] [address] Dr. Ashlie Hills LIPASEon 10-05-2022 Lipase [Catalytic activity/Vol] 1771.0 U/L Critically high 73.0-393.0 [facility] Comment on above: Performed By: #### C BC #### [facility] [address] [place] [address] Dr. Ashlie Hills PREG HCG QUALon 10-05-2022 , QUAL Negative Normal NEGATIVE [facility] Comment on above: Performed By: #### P OCGLUC #### [facility] [address] [place] [address] Dr. Ashlie Hills PROF 14(COMP METB)on 023 Albumin [Mass/Vol] 3.2 g/dL Critically low 3.4-5.0 [facility] Comment on above: Performed By: #### C BC #### [facility] [address] [place] [address] Dr. Ashlie Hills Albumin/Globulin [Mass ratio] 0.7 {ratio} Normal [facility] Comment on above: Performed By: #### C BC #### [facility] [address] [place] [address] Dr. Ashlie Hills ALP [Catalytic activity/Vol] 70 U/L Normal 46-116 [facility] Comment on above: Performed By: #### C BC #### [facility] [address] [place] [address] Dr. Ashlie Hills ALT [Catalytic activity/Vol] 11 U/L Critically low 14-59 [facility] Comment on above: Performed By: #### C BC #### [facility] [address] [place] [address] Dr. Ashlie Hills Anion gap [Moles/Vol] 10.3 mmol/L Normal [facility] Comment on above: Performed By: #### C BC #### [facility] [address] [place] [address] Dr. Ashlie Hills AST [Catalytic activity/Vol] 11 U/L Critically low 15-37 [facility] Comment on above: Performed By: #### C BC #### [facility] [address] [address] [address] Ashlie Hills Bilirubin [Mass/Vol] 0.9 mg/dL Normal 0.2-1.0 [facility] Comment on above: Performed By: #### C BC #### [facility] [address] [address] [address] Ashlie Hills Calcium [Mass/Vol] 9.3 mg/dL Normal 8.5-10.1 [facility] Comment on above: Performed By: #### C BC #### [facility] [address] [address] [address] Ashlie Hills Chloride [Moles/Vol] 105 mmol/L Normal 98-107 [facility] Comment on above: Performed By: #### C BC #### [facility] [address] [address] [address] Ashlie Hills CO2 [Moles/Vol] 30.6 mmol/L Normal 21.0-32.0 [facility] Comment on above: Performed By: #### C BC #### [facility] [address] [address] [address] Ashlie Hills Creatinine [Mass/Vol] 0.62 mg/dL Normal 0.55-1.02 [facility] Comment on above: Performed By: #### C BC #### [facility] [address] [address] [address] Ashlie Hills EGFR-AF BANGLADESHI >60 Normal >=60 [facility] Comment on above: Performed By: #### C BC #### [facility] [address] [address] [address] Ashlie Hills EGFR-NON AF BANGLADESHI >60 Normal >=60 [facility] Comment on above: Performed By: #### C BC #### [facility] [address] [address] [address] Ashlie Hills Globulin (S) [Mass/Vol] 4.6 g/dL Normal [facility] Comment on above: Performed By: #### C BC #### [facility] [address] [address] [address] Ashlie Hills Glucose [Mass/Vol] 85 mg/dL Normal 74-106 [facility] Comment on above: Performed By: #### C BC #### [facility] [address] [address] [address] Ashlie Hills Potassium [Moles/Vol] 3.9 mmol/L Normal 3.5-5.1 [facility] Comment on above: Performed By: #### C BC #### [facility] [address] [address] [address] Ashlie Hills Protein [Mass/Vol] 7.8 g/dL Normal 6.4-8.2 [facility] Comment on above: Performed By: #### C BC #### [facility] [address] [address] [address] Ashlie Hills Sodium [Moles/Vol] 142 mmol/L Normal 136-145 [facility] Comment on above: Performed By: #### C BC #### [facility] [address] [address] [address] Ashlie Hills Urea nitrogen [Mass/Vol] 12.0 mg/dL Normal 7.0-18.0 [facility] Comment on above: Performed By: #### C BC #### [facility] [address] [address] [address] Ashlie Hills Urea nitrogen/Creatinine [Mass ratio] 19.4 mg/mg Normal [facility] Comment on above: Performed By: #### C BC #### [facility] [address] [address] [address] Ashlie Hills URINE MICROSCOPIC ONLYon BACTERIA TRACE Abnormal NONE SEEN [facility] Comment on above: Performed By: #### P OCGLUC #### [facility] [address] [address] [address] Ashlie Hills Bacteria identified Cx Nom (U) NOT INDICATED Normal [facility] Comment on above: Performed By: #### P OCGLUC #### [facility] [address] [place] [address] Dr. Ashlie Hills CAST NONE SEEN Normal NONE SEEN [facility] Comment on above: Performed By: #### P OCGLUC #### [facility] [address] [place] [address] Dr. Ashlie Hills Crystals LM Nom (Urine sed) NONE SEEN Normal NONE SEEN [facility] Comment on above: Performed By: #### P OCGLUC #### [facility] [address] [place] [address] Dr. Ashlie Hills Epithelial cells LM Ql (Urine sed) MODERATE Abnormal NONE SEEN /RARE [facility] Comment on above: Performed By: #### P OCGLUC #### [facility] [address] [place] [address] Dr. Ashlie Hills MUCOUS NONE SEEN Normal NONE SEEN [facility] Comment on above: Performed By: #### P OCGLUC #### [facility] [address] [place] [address] Dr. Ashlie Hills RBC 0-2 Normal 0-2 [facility] Comment on above: Performed By: #### P OCGLUC #### [facility] [address] [place] [address] Dr. Ashlie Hills WBC 0-2 Abnormal NONE SEEN [facility] Comment on above: Performed By: #### P OCGLUC #### [facility] [address] [place] [address] Dr. Ashlie Hills [facility] SARS-CoV-2 (COVID-19) RNA MADDY+probe Ql (Unsp spec) Detected Abnormal NOT DETECTED [facility] Comment on above: Result Comment: This test is not yet approved or cleared by the [place] FDA. When there are no FDA-approved or cleared tests available, and other criteria are met, FDA can make tests available under an emergency access mechanism called an Emergency Use Authorization (EUA). The EUA for this test is supported by the Associate Financial Advisor of Health and Human Service's declaration that [...] VDAGS #### [facility] [address] [place] [address] Dr. Ashlie Hills INFLUENZA A AND B AGon 09-21 [facility] SEE BELOW Normal [facility] Comment on above: Result Comment: Nega tive for Flu A protein angiten. Infection due to Flu A cannot be ruled out. Flu A angiten in the sample may be below the detection limit of the test. Performed By: #### I NFLUAB #### [facility] [address] [place] [address] Dr. Ashlie Hills [facility] Normal [facility] Comment on above: Result Comment: Nega tive for Flu B protein antigen. Infection due to Flu B cannot be ruled out. Flu B antigen in the sample may be below the detection limit of the test. Performed By: #### I NFLUAB #### [facility] [address] [place] [address] Dr. Ashlie Hills INFLUENZA A AG Negative Normal NEGATIVE SEE COMMENT [facility] Comment on above: Performed By: #### I NFLUAB #### [facility] [address] [place] [address] Dr. Ashlie Hills INFLUENZA B AG Negative Normal NEGATIVE SEE COMMENT [facility] Comment on above: Performed By: #### I NFLUAB #### [facility] [address] [place] [address] ABD/PELV W CONon [...] to at least 10/21/2018, unchanged. https://www.ncbi.nlm .nih.gov/pmc/article [email or web address] Electronically authenticated by: COLLIN HUERTAS Date: 2022-07-27 14:56 Normal [facility] CREATININEon 07-18-2022 Creatinine [Mass/Vol] 0.81 mg/dL Normal 0.55-1.02 [facility] Comment on above: Performed By: #### C BC #### [facility] [address] [place] [address] Dr. Ashlie Hills EGFR-AF BANGLADESHI >60 Normal >=60 [facility] Comment on above: Performed By: #### C BC #### [facility] [address] [place] [address] Dr. Ashlie Hills EGFR-NON AF BANGLADESHI >60 Normal >=60 [facility] Comment on above: Performed By: #### C BC #### [facility] [address] [place] [address] LOW EXT W [...] PATRICIA VELOZ Date: 2022-07-18 14:58 Normal [facility] XR KNEE LT 1_2 Von 3 XR [...] Normal [facility] Covid-19 PCR ([facility])on 06-09 SARS-CoV-2 (COVID-19) RNA MADDY+probe Ql (Unsp spec) Not detected Normal NOT DETECTED [facility] Comment on above: Result Comment: This test is not yet approved or cleared by the [place] FDA. When there are no FDA-approved or cleared tests available, and other criteria are met, FDA can make tests available under an emergency access mechanism called an Emergency Use Authorization (EUA). The EUA for this test is supported by the Associate Financial Advisor of Health and Human Service's (HHS's) declaration [...] BC #### [facility] [address] [place] [address] Dr. Ashlie Hills INFLUENZA A AND B AGon 07-06 INFLUANEGH SEE BELOW Normal [facility] Comment on above: Result Comment: Nega tive for Flu A protein angiten. Infection due to Flu A cannot be ruled out. Flu A angiten in the sample may be below the detection limit of the test. Performed By: #### C BC #### [facility] [address] [place] [address] Dr. Ashlie Hills INFLUBNEGH SEE BELOW Normal [facility] Comment on above: Result Comment: Nega tive for Flu B protein antigen. Infection due to Flu B cannot be ruled out. Flu B antigen in the sample may be below the detection limit of the test. Performed By: #### C BC #### [facility] [address] [place] [address] Dr. Ashlie Hills INFLUENZA A AG Negative Normal NEGATIVE SEE COMMENT [facility] Comment on above: Performed By: #### C BC #### [facility] [address] [place] [address] Dr. Ashlie Hills INFLUENZA B AG Negative Normal NEGATIVE SEE COMMENT [facility] Comment on above: Performed By: #### C BC #### [facility] [address] [place] [address] Dr. Ashlie Hills POINT OF CARE GLUCOSEon 04-08 Glucose [Mass/Vol] 108 mg/dL Critically high 74-106 [facility] Comment on above: Performed By: #### C BC #### [facility] [address] [place] [address] Dr. Ashlie Hills RAGHU by IFAon 03-07-2022 Antinuclear Antibodies, IFA Negative Normal [facility] Comment on above: Result Comment: Nega tive <1:80 Borderline 1:80 Positive >1:80 ICAP nomenclature: AC-0 For more information about Hep-2 cell patterns use ANApatterns.org, the official website for the International Consensus on Antinuclear Antibody (RAGHU) Patterns (ICAP). Performed By: #### A NAIFA #### [facility] [address] [place] [address] Dr. Ashlie Hills IMMUNOFIXATION (TREVON), URINEo n 03-07-2022 TREVON Interpretation:U Comment Normal [facility] Comment on above: Result Comment: No m onoclonality detected. Performed By: #### C BC #### [facility] [address] [place] [address] Dr. Ashlie Hills IMMUNOFIXATION(TREVON),PROTEIN ELEC(PE),FREon 03-07-2022 Albumin [Mass/Vol] 3.0 g/dL Normal 2.9-4.4 [facility] Comment on above: Performed By: #### I NFLUAB #### [facility] [address] [place] [address] Dr. Ashlie Hills Albumin/Globulin [Mass ratio] 0.8 {ratio} Normal 0.7-1.7 [facility] Comment on above: Performed By: #### I NFLUAB #### [facility] [address] [place] [address] Dr. Ashlie Hills Fopjr-2-Crygihms 0.3 g/dL Normal 0.0-0.4 [facility] Comment on above: Performed By: #### I NFLUAB #### [facility] [address] [place] [address] Dr. Ashlie Hills Hhsye-7-Vtustunp 1.0 g/dL Normal 0.4-1.0 [facility] Comment on above: Performed By: #### I NFLUAB #### [facility] [address] [place] [address] Dr. Ashlie Hills Beta Globulin 1.8 g/dL Critically high 0.7-1.3 [facility] Comment on above: Performed By: #### I NFLUAB #### [facility] [address] [place] [address] Dr. Ashlie Hills Free [place] Lt Chains,S 45.2 mg/L Critically high 3.3-19.4 [facility] Comment on above: Performed By: #### I NFLUAB #### [facility] [address] [place] [address] Dr. Ashlie Hills Free Lambda Lt Chains,S 40.3 mg/L Critically high 5.7-26.3 [facility] Comment on above: Performed By: #### I NFLUAB #### [facility] [address] [place] [address] Dr. Ashlie Hills Gamma Globulin 0.8 g/dL Normal 0.4-1.8 [facility] Comment on above: Performed By: #### I NFLUAB #### [facility] [address] [place] [address] Dr. Ashlie Hills Globulin (S) [Mass/Vol] 3.9 g/dL Normal 2.2-3.9 [facility] Comment on above: Performed By: #### I NFLUAB #### [facility] [address] [place] [address] Dr. Ashlie Hills Immunofixation Result, Serum Comment Normal [facility] Comment on above: Result Comment: No m onoclonality detected. Performed By: #### I NFLUAB #### [facility] [address] [place] [address] Dr. Ashlie Hills Immunoglobulin A, Qn, Serum 776 mg/dL Critically high 87-352 [facility] Comment on above: Performed By: #### I NFLUAB #### [facility] [address] [place] [address] Dr. Ashlie Hills Immunoglobulin G, Qn, Serum 955 mg/dL Normal 586-1602 [facility] Comment on above: Performed By: #### I NFLUAB #### [facility] [address] [place] [address] Dr. Ashlie Hills Immunoglobulin M, Qn, Serum 39 mg/dL Normal 26-217 [facility] Comment on above: Performed By: #### I NFLUAB #### [facility] [address] [place] [address] Dr. Ashlie Hills [place]/Lambda Ratio, S 1.12 Normal 0.26-1.65 [facility] Comment on above: Performed By: #### I NFLUAB #### [facility] [address] [place] [address] Dr. Ashlie Hills M-Bright Not Observed Normal Not Observed [facility] Comment on above: Performed By: #### I NFLUAB #### [facility] [address] [place] [address] Dr. Ashlie Hills PDF . Normal [facility] Comment on above: Performed By: #### I NFLUAB #### [facility] [address] [place] [address] Dr. Ashlie Hills Please note: Comment Normal [facility] Comment on above: Result Comment: Prot ein electrophoresis scan will follow via computer, mail, or sucker machine operator delivery. Performed By: #### I NFLUAB #### [facility] [address] [place] [address] Dr. Ashlie Hills Protein [Mass/Vol] 6.9 g/dL Normal 6.0-8.5 [facility] Comment on above: Performed By: #### I NFLUAB #### [facility] [address] [place] [address] Dr. Ashlie Hills C-PEPTIDE, SERUMon 2 C-Peptide, Serum 3.1 ng/mL Normal 1.1-4.4 [facility] Comment on above: Result Comment: C-Pe ptide reference interval is for fasting patients. Performed By: #### C PEPT #### [facility] [address] [place] [address] Dr. Ashlie Hills HEP B SURFACE ANTIGEN SCREEN on 03-04-2022 HBsAg Screen Negative Normal Negative [facility] Comment on above: Performed By: #### C BC #### [facility] [address] [place] [address] Dr. Ashlie Hills HEPATITIS C VIRUS AB W/ REFL EX QUANTon 03-04-2022 HCV AB <0.1 Normal 0.0-0.9 [facility] Comment on above: Performed By: #### I NFLUAB #### [facility] [address] [place] [address] Dr. Ashlie Hills Interpretation: Comment Normal [facility] Comment on above: Result Comment: Nega tive Not infected with HCV, unless recent infection is suspected or other evidence exists to indicate HCV infection. Performed By: #### I NFLUAB #### [facility] [address] [address] [address] Ashlie Hills MICROALBUMIN/ CREATININE RAT IOon 03-04-2022 Albumin, Urine 367.4 ug/mL Normal Not Estab. [facility] Comment on above: Performed By: #### C BC #### [facility] [address] [address] [address] Ashlie Hills Albumin/ Creatinine Ratio 239 mg/g creat Critically high 0-29 [facility] Comment on above: Result Comment: Norm al: 0 - 29 Moderately increased: 30 - 300 Severely increased: >300 Performed By: #### C BC #### [facility] [address] [address] [address] Ashlie Hills Creatinine, Urine 153.9 mg/dL Normal Not Estab. [facility] Comment on above: Performed By: #### C BC #### [facility] [address] [address] [address] Ashlie Hills VIT D 25-OH LABCORPon 2021 Vitamin D, 25-Hydroxy <4.0 Critically low 30.0-100.0 [facility] Comment on above: Result Comment: Graciela min D deficiency has been defined by the [place] of Medicine and an Endocrine Society practice guideline as a level of serum 25-OH vitamin D less than 20 ng/mL (1,2). The Endocrine Society went on to further define vitamin D insufficiency as a level between 21 and 29 ng/mL (2). 1. IOM ([place] of Medicine). 2010. Dietary reference intakes for calcium and D. [place]: The National Academies Press. 2. Lynda MF, Keely [place], Leandra LOPEZ, et al. Evaluation, treatment, and prevention of vitamin D deficiency: an Endocrine Society clinical practice guideline. JCEM. 2010; 96(7):1911-30. Performed By: #### C BC #### [facility] [address] [address] [address] Ashlie Hills GLYCOHEMOGLOBIN A1Con 2021 ADA RECOMMENDATION SEE BELOW Normal [facility] Comment on above: Result Comment: ADA RECOMMENDED LIMIT 4.0 - 6.0 ADA THERAPEUTIC TARGET < 7.0 ACTION SUGGESTED > 7.0 Performed By: #### C VDAGS #### [facility] [address] [place] [address] Dr. Ashlie Hills Glucose [Mass/Vol] 295 mg/dL Normal [facility] Comment on above: Performed By: #### C VDAGS #### [facility] [address] [place] [address] Dr. Ashlie Hills HbA1c (Bld) [Mass fraction] 11.9 % Critically high 4.5-6.2 [facility] Comment on above: Performed By: #### C VDAGS #### [facility] [address] [place] [address] Dr. Ashlie Hills HEMOGRAM AND PLATELon 2021 Hematocrit (Bld) [Volume fraction] 56.3 % Critically high 36.0-48.0 [facility] Comment on above: Performed By: #### C VDAGS #### [facility] [address] [place] [address] Dr. Ashlie Hills Hemoglobin (Bld) [Mass/Vol] 18.0 g/dL Critically high 12.0-16.0 [facility] Comment on above: Performed By: #### C VDAGS #### [facility] [address] [place] [address] Dr. Ashlie Hills MCH (RBC) [Entitic mass] 29.5 pg Normal 26.7-34.0 [facility] Comment on above: Performed By: #### C VDAGS #### [facility] [address] [place] [address] Dr. Ashlie Hills MCHC (RBC) [Mass/Vol] 32.0 g/dL Normal 29.9-35.2 [facility] Comment on above: Performed By: #### C VDAGS #### [facility] [address] [place] [address] Dr. Ashlie Hills MCV (RBC) [Entitic vol] 92.1 fL Normal 81.0-99.0 [facility] Comment on above: Performed By: #### C VDAGS #### [facility] [address] [address] [address] Ashlie Hills PLT 123 103/ul Critically low 150-450 [facility] Comment on above: Performed By: #### C VDAGS #### [facility] [address] [address] [address] Ashlie Hills RBC 6.11 106/ul Critically high 4.20-5.40 [facility] Comment on above: Performed By: #### C VDAGS #### [facility] [address] [place] [address] Dr. Ashlie Hills WBC 16.4 103/ul Critically high 4.0-11.0 [facility] Comment on above: Performed By: #### C VDAGS #### [facility] [address] [place] [address] Dr. Ashlie Hills LIPID PROFILEon 03-03-2022 CHOL-HDL RATIO NORM SEE BELOW Normal [facility] Comment on above: Result Comment: 3.3 - 4.4 LOW RISK 4.4 - 7.1 AVERAGE RISK 7.1 - 11.0 MODERATE RISK >11.0 HIGH RISK Performed By: #### C VDAGS #### [facility] [address] [place] [address] Dr. Ashlie Hills Cholesterol [Mass/Vol] 159 mg/dL Normal <=200 [facility] Comment on above: Performed By: #### C VDAGS #### [facility] [address] [place] [address] Dr. Ashlie Hills Cholesterol in HDL [Mass/Vol] 40 mg/dL Normal 40-60 [facility] Comment on above: Performed By: #### C VDAGS #### [facility] [address] [place] [address] Dr. Ashlie Hills Cholesterol in LDL [Mass/Vol] 81.8 mg/dL Normal [facility] Comment on above: Performed By: #### C VDAGS #### [facility] [address] [place] [address] Dr. Ashlie Hills Cholesterol.total/Chol esterol in HDL [Mass ratio] 4.0 {ratio} Normal [facility] Comment on above: Performed By: #### C VDAGS #### [facility] [address] [address] [address] Ashlie Hills HDL NORMAL > or = 60 mg/dl - LOW CARDIOVASCULAR RISK <40 mg/dl - HIGH CARDIOVASCULAR RISK Normal [facility] Comment on above: Performed By: #### C VDAGS #### [facility] [address] [address] [address] Ashlie Hills LDL CALC NORMAL SEE BELOW Normal [facility] Comment on above: Result Comment: <100 mg/dl OPTIMAL 100 - 129 mg/dl NEAR OR ABOVE OPTIMAL 130 - 159 mg/dl BORDERLINE HIGH 160 - 189 mg/dl HIGH >190 mg/dl VERY HIGH Performed By: #### C VDAGS #### [facility] [address] [address] [address] Ashlie Hills Triglyceride [Mass/Vol] 186 mg/dL Critically high <=150 [facility] Comment on above: Performed By: #### C VDAGS #### [facility] [address] [address] [address] Ashlie Hills VLDL CALC 37.2 mg/dL Normal [facility] Comment on above: Performed By: #### C VDAGS #### [facility] [address] [address] [address] Ashlie Hills RENAL FUNCTION PANELon 03-03 Albumin [Mass/Vol] 3.1 g/dL Critically low 3.4-5.0 [facility] Comment on above: Performed By: #### C BC #### [facility] [address] [address] [address] Ashlie Hills Calcium [Mass/Vol] 9.2 mg/dL Normal 8.5-10.1 [facility] Comment on above: Performed By: #### C BC #### [facility] [address] [address] [address] Ashlie Hills Chloride [Moles/Vol] 102 mmol/L Normal 98-107 [facility] Comment on above: Performed By: #### C BC #### [facility] [address] [address] [address] Ashlie Hills CO2 [Moles/Vol] 31.9 mmol/L Normal 21.0-32.0 [facility] Comment on above: Performed By: #### C BC #### [facility] [address] [address] [address] Ashlie Hills Creatinine [Mass/Vol] 0.68 mg/dL Normal 0.55-1.02 [facility] Comment on above: Performed By: #### C BC #### [facility] [address] [address] [address] Ashlie Hills EGFR-AF BANGLADESHI >60 Normal >=60 [facility] Comment on above: Performed By: #### C BC #### [facility] [address] [place] [address] Dr. Ashlie Hills EGFR-NON AF BANGLADESHI >60 Normal >=60 [facility] Comment on above: Performed By: #### C BC #### [facility] [address] [place] [address] Dr. Ashlie Hills Glucose [Mass/Vol] 131 mg/dL Critically high 74-106 [facility] Comment on above: Performed By: #### C BC #### [facility] [address] [place] [address] Dr. Ashlie Hills Phosphate [Mass/Vol] 4.0 mg/dL Normal 2.6-4.7 [facility] Comment on above: Performed By: #### C BC #### [facility] [address] [place] [address] Dr. Ashlie Hills Potassium [Moles/Vol] 4.0 mmol/L Normal 3.5-5.1 [facility] Comment on above: Performed By: #### C BC #### [facility] [address] [place] [address] Dr. Ashlie Hills Sodium [Moles/Vol] 141 mmol/L Normal 136-145 [facility] Comment on above: Performed By: #### C BC #### [facility] [address] [address] [address] Ashlie Hills Urea nitrogen [Mass/Vol] 17.0 mg/dL Normal 7.0-18.0 [facility] Comment on above: Performed By: #### C BC #### [facility] [address] [place] [address] Dr. Ashlie Hills UA RANDOM W/MICROSCOPICon BACTERIA NONE SEEN Normal NONE SEEN [facility] Comment on above: Performed By: #### I NFLUAB #### [facility] [address] [place] [address] Dr. Ashlie Hills Bilirubin Ql (U) Negative Normal NEGATIVE [facility] Comment on above: Performed By: #### I NFLUAB #### [facility] [address] [place] [address] Dr. Ashlie Hills CAST NONE SEEN Normal NONE SEEN [facility] Comment on above: Performed By: #### I NFLUAB #### [facility] [address] [place] [address] Dr. Ashlie Hills Clarity (U) CLEAR Normal CLEAR [facility] Comment on above: Performed By: #### I NFLUAB #### [facility] [address] [place] [address] Dr. Ashlie Hills Color (U) YELLOW Normal YELLOW [facility] Comment on above: Performed By: #### I NFLUAB #### [facility] [address] [place] [address] Dr. Ashlie Hills Crystals LM Nom (Urine sed) NONE SEEN Normal NONE SEEN [facility] Comment on above: Performed By: #### I NFLUAB #### [facility] [address] [place] [address] Dr. Ashlie Hills Epithelial cells LM Ql (Urine sed) FEW Abnormal NONE SEEN /RARE [facility] Comment on above: Performed By: #### I NFLUAB #### [facility] [address] [place] [address] Dr. Ashlie Hills Glucose Ql (U) Negative Normal NEGATIVE [facility] Comment on above: Performed By: #### I NFLUAB #### [facility] [address] [address] [address] Ashlie Hills Hemoglobin Ql (U) Negative Normal NEGATIVE [facility] Comment on above: Performed By: #### I NFLUAB #### [facility] [address] [address] [address] Ashlie Hills Ketones Ql (U) Negative Normal NEGATIVE [facility] Comment on above: Performed By: #### I NFLUAB #### [facility] [address] [address] [address] Ashlie Hills LEUKOCYTES Negative Normal NEGATIVE [facility] Comment on above: Performed By: #### I NFLUAB #### [facility] [address] [place] [address] Dr. Ashlie Hills MUCOUS NONE SEEN Normal NONE SEEN [facility] Comment on above: Performed By: #### I NFLUAB #### [facility] [address] [place] [address] Dr. Ashlie Hills Nitrite Ql (U) Negative Normal NEGATIVE [facility] Comment on above: Performed By: #### I NFLUAB #### [facility] [address] [place] [address] Dr. Ashlie Hills pH (U) 5.5 [pH] Normal 5-9 [facility] Comment on above: Performed By: #### I NFLUAB #### [facility] [address] [place] [address] Dr. Ashlie Hills RBC 0-2 Normal 0-2 [facility] Comment on above: Performed By: #### I NFLUAB #### [facility] [address] [place] [address] Dr. Ashlie Hills SPEC GRAVITY >=1.030 Abnormal 1.005-<=1.025 [facility] Comment on above: Performed By: #### I NFLUAB #### [facility] [address] [place] [address] Dr. Ashlie Hills UA PROTEIN 100 mg/dl Abnormal NEGATIVE/ TRACE [facility] Comment on above: Performed By: #### I NFLUAB #### [facility] [address] [place] [address] Dr. Ashlie Hills Urobilinogen Qn (U) 0.2 {Little'U}/dL Normal 0.2 - 1. 0 [facility] Comment on above: Performed By: #### I NFLUAB #### [facility] [address] [address] [address] Ashlie Hills WBC NONE SEEN Normal NONE SEEN [facility] Comment on above: Performed By: #### I NFLUAB #### [facility] [address] [address] [address] Ashlie Hills URIC ACID SERUMon 03-03-2022 Urate [Mass/Vol] 5.0 mg/dL Normal 2.6-6.0 [facility] Comment on above: Performed By: #### I NFLUAB #### [facility] [address] [place] [address] Dr. Ashlie Hills URINE T PROTEIN CREAT RATIOo n 03-03-2022 Protein (U) [Mass/Vol] 77.9 mg/dL Critically high <=12.0 [facility] Comment on above: Performed By: #### C VDAGS #### [facility] [address] [address] [address] Ashlie Hills UR PROT CREAT RAT 0.44 Normal [facility] Comment on above: Performed By: #### C VDAGS #### [facility] [address] [place] [address] Dr. Ashlie Hills URINE CREAT 175.15 mg/dL Normal 20.00-300.00 [facility] Comment on above: Performed By: #### C VDAGS #### [facility] [address] [place] [address] Dr. Ashlie Hills CULTURE URINEon 12-25-2021 CULTURE URINE Culture Observations: GREATER THAN TWO ORGANISMS PRESENT, HEAVILY MIXED. PLEASE RESUBMIT CLEAN CATCH MID-STREAM URINE IF CLINICALLY INDICATED. Normal The [facility] Comment on above: Performed By: #### I NFLUAB #### [facility] [address] [place] [address] Dr. Ashlie Hills CBC AUTO DIFFon 12-24-2021 BASO # 0.1 103/ul Normal 0.0-0.1 [facility] Comment on above: Performed By: #### C BC #### [facility] [address] [place] [address] Dr. Ashlie Hills Basophils/100 WBC (Bld) 0.5 % Normal 0.2-2.0 [facility] Comment on above: Performed By: #### C BC #### [facility] [address] [place] [address] Dr. Ashlie Hills EO # 0.4 103/ul Normal 0.0-0.7 [facility] Comment on above: Performed By: #### C BC #### [facility] [address] [place] [address] Dr. Ashlie Hills Eosinophils/100 WBC (Bld) 2.4 % Normal 0.9-7.0 [facility] Comment on above: Performed By: #### C BC #### [facility] [address] [place] [address] Dr. Ashlie Hills Erythrocyte distribution width (RBC) [Ratio] 14.1 % Normal 11.0-15.0 [facility] Comment on above: Performed By: #### C BC #### [facility] [address] [place] [address] Dr. Ashlie Hills Hematocrit (Bld) [Volume fraction] 55.9 % Critically high 36.0-48.0 [facility] Comment on above: Performed By: #### C BC #### [facility] [address] [place] [address] Dr. Ashlie Hills Hemoglobin (Bld) [Mass/Vol] 17.9 g/dL Critically high 12.0-16.0 [facility] Comment on above: Performed By: #### C BC #### [facility] [address] [place] [address] Dr. Ashlie Hills IG # 0.06 10e3/ul Critically high 0.00-0.03 [facility] Comment on above: Performed By: #### C BC #### [facility] [address] [place] [address] Dr. Ashlie Hills IG % 0.4 % Normal 0.0-0.5 [facility] Comment on above: Performed By: #### C BC #### [facility] [address] [place] [address] Dr. Ashlie Hills LYMPH # 5.8 103/ul Critically high 1.2-3.8 [facility] Comment on above: Performed By: #### C BC #### [facility] [address] [place] [address] Dr. Ashlie Hills Lymphocytes/100 WBC (Bld) 35.4 % Normal 20.5-60.0 [facility] Comment on above: Performed By: #### C BC #### [facility] [address] [place] [address] Dr. Ashlie Hills MANUAL DIFF REQ NO Normal [facility] Comment on above: Performed By: #### C BC #### [facility] [address] [place] [address] Dr. Ashlie Hills MCH (RBC) [Entitic mass] 29.4 pg Normal 26.7-34.0 [facility] Comment on above: Performed By: #### C BC #### [facility] [address] [place] [address] Dr. Ashlie Hills MCHC (RBC) [Mass/Vol] 32.0 g/dL Normal 29.9-35.2 [facility] Comment on above: Performed By: #### C BC #### [facility] [address] [place] [address] Dr. Ashlie Hills MCV (RBC) [Entitic vol] 91.8 fL Normal 81.0-99.0 [facility] Comment on above: Performed By: #### C BC #### [facility] [address] [place] [address] Dr. Ashlie Hills MONO # 0.8 103/ul Normal 0.3-0.8 [facility] Comment on above: Performed By: #### C BC #### [facility] [address] [place] [address] Dr. Ashlie Hills Monocytes/100 WBC (Bld) 4.8 % Normal 1.7-12.0 [facility] Comment on above: Performed By: #### C BC #### [facility] [address] [address] [address] Ashlie Hills NEUT # 9.3 103/ul Critically high 1.4-6.5 [facility] Comment on above: Performed By: #### C BC #### [facility] [address] [address] [address] Ashlie Hills Neutrophils/100 WBC (Bld) 56.5 % Normal 43.0-75.0 [facility] Comment on above: Performed By: #### C BC #### [facility] [address] [address] [address] Ashlie Hills Platelet mean volume (Bld) [Entitic vol] 12.9 fL Normal 9.5-13.5 [facility] Comment on above: Performed By: #### C BC #### [facility] [address] [address] [address] Ashlie Hills PLT 127 103/ul Critically low 150-450 [facility] Comment on above: Performed By: #### C BC #### [facility] [address] [address] [address] Ashlie Hills RBC 6.09 106/ul Critically high 4.20-5.40 [facility] Comment on above: Performed By: #### C BC #### [facility] [address] [place] [address] Dr. Ashlie Hills WBC 16.4 103/ul Critically high 4.0-11.0 [facility] Comment on above: Performed By: #### C BC #### [facility] [address] [place] [address] ABD/PELVIS WO CONon 12-24 CT ABD/PELVIS [...] Normal [facility] URINE PROFILEon 2 Bilirubin Ql (U) Negative Normal NEGATIVE [facility] Comment on above: Performed By: #### E RUR, UMICRO #### [facility] [address] [place] [address] Dr. Ashlie Hills Clarity (U) CLEAR Normal CLEAR [facility] Comment on above: Performed By: #### E RUR, UMICRO #### [facility] [address] [place] [address] Dr. Ashlie Hills Color (U) DK. ORANGE Abnormal YELLOW [facility] Comment on above: Performed By: #### E RUR, UMICRO #### [facility] [address] [place] [address] Dr. Ashlie HOBBS A micrscopic examination will be performed if indicated. Normal [facility] Comment on above: Performed By: #### E RUR, UMICRO #### [facility] [address] [place] [address] Dr. Ashlie Hills Glucose Ql (U) 250 mg/dl Abnormal NEGATIVE [facility] Comment on above: Performed By: #### E RUR, UMICRO #### [facility] [address] [place] [address] Dr. Ashlie Hills Hemoglobin Ql (U) Negative Normal NEGATIVE [facility] Comment on above: Performed By: #### E RUR, UMICRO #### [facility] [address] [place] [address] Dr. Ashlie Hills Ketones Ql (U) Negative Normal NEGATIVE [facility] Comment on above: Performed By: #### E RUR, UMICRO #### [facility] [address] [place] [address] Dr. Ashlie Hills LEUKOCYTES Negative Normal NEGATIVE [facility] Comment on above: Performed By: #### E RUR, UMICRO #### [facility] [address] [place] [address] Dr. Ashlie Hills Nitrite Ql (U) Negative Normal NEGATIVE [facility] Comment on above: Performed By: #### E RUR, UMICRO #### [facility] [address] [place] [address] Dr. Ashlie Hills pH (U) 5.0 [pH] Normal 5-9 [facility] Comment on above: Performed By: #### MADELINE DIAZRO #### [facility] [address] [place] [address] Dr. Ashlie Hills Protein (U) [Mass/Vol] 100 mg/dL Abnormal NEGAT YURY/ TRACE [facility] Comment on above: Performed By: #### Tracey LYMAN, UMICRO #### [facility] [address] [place] [address] Dr. Ashlie Hills SPEC GRAVITY >=1.030 Abnormal 1.005-<=1.025 [facility] Comment on above: Performed By: #### Tracey LYMAN, MADELINERO #### [facility] [address] [place] [address] Dr. Ashlie Hills UR MICRO IND INDICATED Normal [facility] Comment on above: Performed By: #### Tracey LYMAN UMHARRIETRO #### [facility] [address] [place] [address] Dr. Ashlie Hills Urobilinogen Qn (U) 1.0 {Little'U}/dL Normal 0.2 - 1. 0 [facility] Comment on above: Performed By: #### Tracey LYMAN, MADELINERO #### [facility] [address] [place] [address] Dr. Ashlie Hills PROF CHEM 8 (BAS METB)on Anion gap [Moles/Vol] 12.1 mmol/L Normal [facility] Comment on above: Performed By: #### I NFLUAB #### [facility] [address] [place] [address] Dr. Ashlie Hills Calcium [Mass/Vol] 9.0 mg/dL Normal 8.5-10.1 [facility] Comment on above: Performed By: #### I NFLUAB #### [facility] [address] [place] [address] Dr. Ashlie Hills Chloride [Moles/Vol] 101 mmol/L Normal 98-107 [facility] Comment on above: Performed By: #### I NFLUAB #### [facility] [address] [address] [address] Ashlie Hills CO2 [Moles/Vol] 29.1 mmol/L Normal 21.0-32.0 [facility] Comment on above: Performed By: #### I NFLUAB #### [facility] [address] [address] [address] Ashlie Hills Creatinine [Mass/Vol] 0.86 mg/dL Normal 0.55-1.02 [facility] Comment on above: Performed By: #### I NFLUAB #### [facility] [address] [place] [address] Dr. Ashlie Hills EGFR-AF BANGLADESHI >60 Normal >=60 [facility] Comment on above: Performed By: #### I NFLUAB #### [facility] [address] [address] [address] Ashlie Hills EGFR-NON AF BANGLADESHI >60 Normal >=60 [facility] Comment on above: Performed By: #### I NFLUAB #### [facility] [address] [address] [address] Ashlie Hills Glucose [Mass/Vol] 236 mg/dL Critically high 74-106 [facility] Comment on above: Performed By: #### I NFLUAB #### [facility] [address] [address] [address] Ashlie Hills Potassium [Moles/Vol] 4.2 mmol/L Normal 3.5-5.1 [facility] Comment on above: Performed By: #### I NFLUAB #### [facility] [address] [address] [address] Ashlie Hills Sodium [Moles/Vol] 138 mmol/L Normal 136-145 [facility] Comment on above: Performed By: #### I NFLUAB #### [facility] [address] [address] [address] Ashlie Hills Urea nitrogen [Mass/Vol] 11.0 mg/dL Normal 7.0-18.0 [facility] Comment on above: Performed By: #### I NFLUAB #### [facility] [address] [place] [address] Dr. Ashlie Hills Urea nitrogen/Creatinine [Mass ratio] 12.8 mg/mg Normal [facility] Comment on above: Performed By: #### I NFLUAB #### [facility] [address] [place] [address] Dr. Ashlie Hills URINE MICROSCOPIC ONLYon BACTERIA SMALL Abnormal NONE SEEN [facility] Comment on above: Performed By: #### E RUR, UMICRO #### [facility] [address] [place] [address] Dr. Ashlie Hills Bacteria identified Cx Nom (U) INDICATED Normal [facility] Comment on above: Performed By: #### E RUR, UMICRO #### [facility] [address] [place] [address] Dr. Ashlie Hills CAST NONE SEEN Normal NONE SEEN [facility] Comment on above: Performed By: #### E RUR, UMICRO #### [facility] [address] [place] [address] Dr. Ashlie Hills Crystals LM Nom (Urine sed) NONE SEEN Normal NONE SEEN [facility] Comment on above: Performed By: #### E RUR, UMICRO #### [facility] [address] [place] [address] Dr. Ashlie Hills Epithelial cells LM Ql (Urine sed) MODERATE Abnormal NONE SEEN /RARE [facility] Comment on above: Performed By: #### E RUR, UMICRO #### [facility] [address] [place] [address] Dr. Ashlie Hills MUCOUS NONE SEEN Normal NONE SEEN [facility] Comment on above: Performed By: #### E RUR, UMICRO #### [facility] [address] [place] [address] Dr. Ashlie Hills RBC 0-2 Normal 0-2 [facility] Comment on above: Performed By: #### E NURA, UMICRO #### [facility] [address] [place] [address] Dr. Ashlie Hills WBC 0-2 Abnormal NONE SEEN [facility] Comment on above: Performed By: #### E EVONNE LYMAN #### [facility] [address] [address] [address] Ashlie Hills YEAST PRESENT Abnormal NONE SEEN [facility] Comment on above: Performed By: #### E EVONNE LYMAN #### [facility] [address] [address] [address] Ashlie Hills HIP RIGHT 1 OR 2 VWS WITH PE LVISon 07-20-2020 HIP RIGHT 1 OR 2 VWS WITH PELVIS [facility] Department of Radiology [address] [place] [address] Patient Name: MITZI MACIAS : 1970 Sex: F Age: Race: White Pt. Location: Patient Status: O Ordered Date: 07/20/2020 1:45:00 PM Completed Date: 07/20/2020 01:57 PM Requesting Provider: LIZ EISENBERG Attending Provider: LIZ EISENBERG Report Copy To: MCKAYLA BLAS Signs & Symptoms: M25.551 Pain in right hip I10 History: [place] Comments: evaluate Exam: HIP RIGHT 1 OR [...] MRI. Electronically signed: Pipo Acevedo. Transcribed by: [email or web address], User Resident: Electronically Signed by: PIPO ACEVEDO @ 07/20/2020 03:45 PM Normal [facility] Comment on above: Order Comment: evalu ate Vital Signs Date Time Vital Sign Value Performing Clinician Facility 01-29-2025 09:48-0400 Body height 170.2 cm Rain Souza MD Work Phone: [facility] 01-29-2025 09:48-0400 Body mass index (BMI) [Ratio] 56.38 kg/m2 Rain Souza MD Work Phone: [facility] 01-29-2025 09:48-0400 Body weight 163.29 kg Rain Souza MD Work Phone: [facility] 01-29-2025 09:48-0400 Diastolic blood pressure 70 mm[Hg] Rain Souza MD Work Phone: [facility] 01-29-2025 09:48-0400 Heart rate 72 /min Rain Souza MD Work Phone: [facility] 01-29-2025 09:48-0400 Respiratory rate 16 /min Rain Souza MD Work Phone: [facility] 01-29-2025 09:48-0400 SaO2% (BldA) [Mass fraction] 84 % Rain Souza MD Work Phone: [facility] 01-29-2025 09:48-0400 Systolic blood pressure 130 mm[Hg] Rain Souza MD Work Phone: [facility] 01-26-2025 18:11-0400 Body mass index (BMI) [Ratio] 58.64 kg/m2 Mckayla Blas NP Work Phone: [facility] 01-26-2025 18:11-0400 Body temperature 98.49 [degF] Mckayla Aichholz PUBLIC HE[employer] INSPECTOR Work Phone: [facility] 01-26-2025 18:11-0400 Body weight 169.83 kg Mckayla Aichholz PUBLIC HEALTH INSPECTOR Work Phone: [facility] 01-26-2025 18:11-0400 Diastolic blood pressure 82 mm[Hg] Mckayla Aichholz PUBLIC HEALTH INSPECTOR Work Phone: [facility] 01-26-2025 18:11-0400 Heart rate 81 /min Mckayla Aichholz PUBLIC HEALTH INSPECTOR Work Phone: [facility] 01-26-2025 18:11-0400 Respiratory rate 20 /min Mckayla Aichholz PUBLIC HEALTH INSPECTOR Work Phone: [facility] 01-26-2025 18:11-0400 SaO2% (BldA) [Mass fraction] 90 % Mckayla Aichholz PUBLIC HEALTH INSPECTOR Work Phone: [facility] 01-26-2025 18:11-0400 Systolic blood pressure 126 mm[Hg] Mckayla Aichholz PUBLIC HEALTH INSPECTOR Work Phone: [facility] 12-09-2024 10:19-0400 Body temperature 98.01 [degF] Mckayla Aichholz PUBLIC HEALTH INSPECTOR Work Phone: [facility] 12-09-2024 10:19-0400 Diastolic blood pressure 76 mm[Hg] Mckayla Aichholz PUBLIC HEALTH INSPECTOR Work Phone: [facility] 12-09-2024 10:19-0400 Heart rate 71 /min Mckayla Aichholz PUBLIC HEALTH INSPECTOR Work Phone: [facility] 12-09-2024 10:19-0400 Respiratory rate 20 /min Mckayla Aichholz PUBLIC HEALTH INSPECTOR Work Phone: [facility] 12-09-2024 10:19-0400 SaO2% (BldA) [Mass fraction] 88 % Mckayla Aichholz PUBLIC HEALTH INSPECTOR Work Phone: [facility] 12-09-2024 10:19-0400 Systolic blood pressure 150 mm[Hg] Mckayla Blas PUBLIC HEALTH INSPECTOR Work Phone: [facility] 10-27-2024 14:11-0400 Body height 170.2 cm Mckayla Blas PUBLIC HEALTH INSPECTOR Work Phone: [facility] 10-27-2024 14:11-0400 Body mass index (BMI) [Ratio] 56.51 kg/m2 Mckaylajuvenal Rosenbergz PUBLIC HEALTH INSPECTOR Work Phone: [facility] 10-27-2024 14:11-0400 Body temperature 98.71 [degF] Mckayla Rosenbergz PUBLIC HEALTH INSPECTOR Work Phone: [facility] 10-27-2024 14:11-0400 Body weight 163.66 kg Mckayla Blas PUBLIC HEALTH INSPECTOR Work Phone: [facility] 10-27-2024 14:11-0400 Diastolic blood pressure 74 mm[Hg] Mckayla Rosenbergz PUBLIC HEALTH INSPECTOR Work Phone: [facility] 10-27-2024 14:11-0400 Heart rate 75 /min Mckaylajuvenal Rosenbergz PUBLIC HEALTH INSPECTOR Work Phone: [facility] 10-27-2024 14:11-0400 Respiratory rate 18 /min Mckaylajuvenal Blas PUBLIC HEALTH INSPECTOR Work Phone: [facility] 10-27-2024 14:11-0400 SaO2% (BldA) [Mass fraction] 90 % Mckaylajuvenal Rosenbergz PUBLIC HEALTH INSPECTOR Work Phone: [facility] 10-27-2024 14:11-0400 Systolic blood pressure 132 mm[Hg] Mckayla Rosenbergz PUBLIC HEALTH INSPECTOR Work Phone: [facility] 10-08-2024 11:040 Body height 170.2 cm Rain Souza MD Work Phone: [facility] 10-08-2024 11:21-0400 Body mass index (BMI) [Ratio] 55.91 kg/m2 Rain Souza MD Work Phone: [facility] 10-08-2024 11:21-0400 Body weight 161.93 kg Rain Souza MD Work Phone: [facility] 10-08-2024 11:21-0400 Diastolic blood pressure 70 mm[Hg] Rain Souza MD Work Phone: [facility] 10-08-2024 11:21-0400 Heart rate 70 /min Rain Souza MD Work Phone: [facility] 10-08-2024 11:21-0400 Respiratory rate 16 /min Rain Souza MD Work Phone: [facility] 10-08-2024 11:21-0400 SaO2% (BldA) [Mass fraction] 91 % Rain Souza MD Work Phone: [facility] 10-08-2024 11:21-0400 Systolic blood pressure 130 mm[Hg] Rain Souza MD Work Phone: [facility] 08-27-2024 17:44-0500 Body mass index (BMI) [Ratio] 57.31 kg/m2 Mckayla Wan PUBLIC HEALTH INSPECTOR Work Phone: [facility] 08-27-2024 17:44-0500 Body temperature 98.01 [degF] Mckayla Wan PUBLIC HEALTH INSPECTOR Work Phone: [facility] 08-27-2024 17:44-0500 Body weight 165.97 kg Mckayla Wan PUBLIC HEALTH INSPECTOR Work Phone: [facility] 08-27-2024 17:44-0500 Diastolic blood pressure 76 mm[Hg] Mckayla Wan PUBLIC HEALTH INSPECTOR Work Phone: [facility] 08-27-2024 17:44-0500 Heart rate 83 /min Mckayla Wan PUBLIC HEALTH INSPECTOR Work Phone: [facility] 08-27-2024 17:44-0500 Respiratory rate 18 /min Mckayla Wan PUBLIC HEALTH INSPECTOR Work Phone: [facility] 02-19-2025 17:44-0500 SaO2% (BldA) [Mass fraction] 91 % Mckayla Sowdona PUBLIC HEALTH INSPECTOR Work Phone: [facility] 08-27-2024 17:44-0500 Systolic blood pressure 134 mm[Hg] Mckayla Patriciajodie PUBLIC HEALTH INSPECTOR Work Phone: [facility] 06-11-2024 10:00-0500 Blood Pressure Location Elbert ARAUZ [facility] 06-11-2024 10:00-0500 Diastolic blood pressure 68 mm[Hg] Elbert ARAUZ [facility] 06-11-2024 10:00-0500 Heart rate 76 /min Elbert ARAUZ [facility] 06-11-2024 10:00-0500 Systolic blood pressure 132 mm[Hg] Elbert ARAUZ [facility] 05-27-2024 10:20-0500 Body height 170.2 cm Rain Souza MD Work Phone: [facility] 05-27-2024 10:20-0500 Body mass index (BMI) [Ratio] 56.7 kg/m2 Rain Souza MD Work Phone: [facility] 05-27-2024 10:20-0500 Body weight 164.2 kg Rain Souza MD Work Phone: [facility] 05-27-2024 10:20-0500 Diastolic blood pressure 66 mm[Hg] Rain Souza MD Work Phone: [facility] 05-27-2024 10:20-0500 Heart rate 72 /min Rain Souza MD Work Phone: [facility] 05-27-2024 10:20-0500 Respiratory rate 16 /min Rain Souza MD Work Phone: [facility] 05-27-2024 10:20-0500 Systolic blood pressure 128 mm[Hg] Rain Souza MD Work Phone: [facility] 04-14-2024 10:27-0400 Body height 165.1 cm Mckayla Sowdona PUBLIC HEALTH INSPECTOR Work Phone: [facility] 04-14-2024 10:27-0400 Body mass index (BMI) [Ratio] 61.01 kg/m2 Mckayla Wan PUBLIC HEALTH INSPECTOR Work Phone: [facility] 04-14-2024 10:27-0400 Body temperature 98.49 [degF] Mckayla Wan PUBLIC HEALTH INSPECTOR Work Phone: [facility] 04-14-2024 10:27-0400 Body weight 166.29 kg Mckayla Wan PUBLIC HEALTH INSPECTOR Work Phone: [facility] 04-14-2024 10:27-0400 Diastolic blood pressure 80 mm[Hg] Mckayla Chetz PUBLIC HEALTH INSPECTOR Work Phone: [facility] 04-14-2024 10:27-0400 Heart rate 77 /min Mckayla Chetz PUBLIC HEALTH INSPECTOR Work Phone: [facility] 04-14-2024 10:27-0400 Respiratory rate 19 /min Mckayla Chetz PUBLIC HEALTH INSPECTOR Work Phone: [facility] 04-14-2024 10:27-0400 SaO2% (BldA) [Mass fraction] 92 % Mckayla Chetz PUBLIC HEALTH INSPECTOR Work Phone: [facility] 04-14-2024 10:27-0400 Systolic blood pressure 116 mm[Hg] Mckayla Chetz PUBLIC HEALTH INSPECTOR Work Phone: [facility] 03-08-2022 15:00-0400 Body height 170.18 cm Stephanie Tico Other [facility] Other 03-08-2022 15:00-0400 Body temperature 97.6 [degF] Stephanie Tico Other [facility] Other 03-08-2022 15:00-0400 Diastolic blood pressure 72 mm[Hg] Stephanie Tico Other [facility] Other 03-08-2022 15:00-0400 Respiratory rate 20 /min Stephanie Tico Other [facility] Other 03-08-2022 15:00-0400 SaO2% (BldA) [Mass fraction] 91 % Stephanie Tico Other [facility] Other 03-08-2022 15:00-0400 Systolic blood pressure 131 mm[Hg] Stephanie Tico Other [facility] Other 02-20-2022 09:20-0400 Body height 170.18 cm Stephanie Tico Other [facility] Other 02-20-2022 09:20-0400 Body temperature 96.5 [degF] Stephanie Tico Other [facility] Other 02-20-2022 09:20-0400 Diastolic blood pressure 69 mm[Hg] Stephanie Tico Other [facility] Other 02-20-2022 09:20-0400 Respiratory rate 20 /min Stephanie Tico Other [facility] Other 02-20-2022 09:20-0400 SaO2% (BldA) [Mass fraction] 91 % Stephanie Tico Other [facility] Other 02-20-2022 09:20-0400 Systolic blood pressure 129 mm[Hg] Stephanie Lizamadir Other [facility] [employer] Other 02-06-2022 10:24-0400 Blood Pressure Location Elbert ARAUZ [facility] 02-06-2022 10:24-0400 Diastolic blood pressure 76 mm[Hg] Elbert ARAUZ [facility] 02-06-2022 10:24-0400 Heart rate 70 /min Elbert ARAUZ [facility] 02-06-2022 10:24-0400 Respiratory rate 16 /min Elbert ARAUZ [facility] 02-06-2022 10:24-0400 Systolic blood pressure 134 mm[Hg] Elbert ARAUZ [facility] Encounters Encounter Date Encounter Type Care Provider Facility Start: 01-29-2025 End: 01-29-2025 Bamboo flowsheet Rain Souza MD Work Phone: [facility] Start: 01-29-2025 End: 01-29-2025 Bamboo flowsheet Rain Souza MD Work Phone: [facility] Start: 01-29-2025 End: 01-29-2025 Clinisync Result Encounter Generic External Data Provider [facility] External Department Unsolicited Start: 01-29-2025 End: 01-29-2025 ambulatory RAIN SOUZA Not Available Start: 01-29-2025 End: 01-29-2025 Office outpatient visit 25 minutes Rain Souza MD Work Phone: [facility] Comment on above: Encounter for dietar y consultation (Primary Dx); Type 2 diabetes mellitus with hyperglycemia, with long-term current use of insulin (HCC); Vitamin D deficiency; Primary hypertension ; Insulin long-term use (HCC); Hyperlipemia, mixed ; Microalbuminuria; Class 3 severe obesity due to excess calories with serious comorbidity and body mass index (BMI) of 50.0 to 59.9 in adult ([facility]) Start: 01-26-2025 End: 01-26-2025 ambulatory MCKAYLA BLAS Not Available Start: 01-26-2025 End: 01-26-2025 Patient encounter procedure Mckayla Blas NP Work Phone: [facility] Comment on above: Encounter for subseq [...] Morbid (severe) obesity due to excess calories ([facility]) Start: 01-06-2025 End: 01-06-[address] [facility] Start: 12-18-2024 End: 12-19-2024 Refill Mckayla Blas NP Work Phone: [facility] Comment on above: Hyperlipidemia, unsp ecified ; Tobacco user; Encounter for smoking cessation counseling Start: 12-09-2024 End: 12-09-2024 Bamboo flowsheet Mckayla Blas NP Work Phone: [facility] Start: 12-09-2024 End: 12-09-2024 Bamboo flowsheet Mckayla Blas PUBLIC HEALTH INSPECTOR Work Phone: [facility] Start: 12-09-2024 End: 12-09-2024 ambulatory MCKAYLA AICHHOLZ Not Available Start: 12-09-2024 End: 12-09-2024 Office outpatient visit 25 minutes Mckayla Blas PUBLIC HEALTH INSPECTOR Work Phone: [facility] Comment on above: Cellulitis of left [...] Office outpatient visit 25 minutes Mckayla Blas PUBLIC HEALTH INSPECTOR Work Phone: [facility] Comment on above: Primary hypertension (CMS/HCC) [...] 10-21-2024 Refill Mckayla Blas NP Work Phone: [facility] Comment on above: Chronic obstructive pulmonary disease, unspecified Start: 10-08-2024 End: 10-08-2024 Clinisync Result Encounter Mckayla Blas NP Work Phone: [facility] External Department Unsolicited Start: 10-08-2024 End: 10-08-2024 Clinisync Result Encounter Mckayla Wan SCHAEFER Work Phone: [facility] External Department Unsolicited Start: 10-08-2024 End: 10-08-2024 Office outpatient visit 25 minutes Rain Souza MD Work Phone: [facility] Comment on above: Type [...] 25 minutes Mckayla Blas NP Work Phone: [facility] Comment on above: Anxiety and depressi [...] complication, with long-term current use of insulin ([facility]); Tobacco user; Mixed hyperlipidemia ([facility]); Gout, unspecified cause, unspecified chronicity, unspecified site; Vitamin deficiency; Gastro-esophageal reflux disease without esophagitis; Edema, unspecified; Edema; Hyperlipidemia, unspecified ([facility]); Encounter for smoking cessation counseling; Venous ulcer of right leg ([facility]); Antibiotic-induced yeast infection Start: 08-27-2024 End: 08-27-2024 ambulatory MCKAYLA BLAS Not Available Start: 08-27-2024 End: 08-27-2024 Clinisync Result Encounter Generic External Data Provider [facility] External Department Unsolicited Start: 08-27-2024 End: 08-27-2024 Clinisync Result Encounter Generic External Data Provider [facility] External Department Unsolicited Start: 08-08-2024 End: 08-08-2024 ambulatory [facility] Start: 07-17-2024 End: 07-17-2024 Refill Mckayla Blas NP Work Phone: [facility] Start: 07-14-2024 End: 07-14-2024 Office outpatient visit 25 minutes Mckayla Blas NP Work Phone: [facility] Comment on above: Primary hypertension ([facility]) (Primary Dx); Diabetic polyneuropathy associated with type 2 diabetes mellitus ([facility]); Pulmonary emphysema, unspecified emphysema type ([facility]); Critical limb ischemia of right lower extremity ([facility]); PAD (peripheral artery disease) ([facility]); Gastroesophageal reflux disease, unspecified whether esophagitis present; Bilateral lower extremity edema; Venous ulcer of right leg ([facility]); Type 2 diabetes mellitus with complication, with long-term current use of insulin ([facility]); Tobacco user; Encounter for smoking cessation counseling; Kidney stone; Adrenal mass 1 cm to 4 cm in diameter ([facility]); Radiculopathy, lumbar region; Non-seasonal allergic rhinitis, unspecified trigger; Type 2 diabetes mellitus with unspecified complications ([facility]) Start: 07-14-2024 End: 07-14-2024 ambulatory MCKAYLA AICHHOLZ Not Available Start: 07-05-2024 End: 07-07-2024 Refill Mckayla Aichholz PUBLIC HEALTH INSPECTOR Work Phone: [facility] Comment on above: Bilateral lower extr emity edema Start: 06-11-2024 ambulatory Elbert ARAUZ [place] ty:SHEA [place] Start: 06-11-2024 End: 06-11-2024 Patient encounter procedure Elbert ARAUZ [facility] [place] Start: 05-27-2024 End: 05-27-2024 Bambolalo flowsheet Rain Souza MD Work Phone: [facility] Start: 05-27-2024 End: 05-27-2024 Bamboo flowsheet Rain Souza MD Work Phone: [facility] Start: 05-27-2024 End: 05-27-2024 ambulatory RAIN SOUZA Not Available Start: 05-27-2024 End: 05-27-2024 Office outpatient visit 25 minutes Rain Souza MD Work Phone: [facility] Comment on above: Type 2 diabetes asiya itus with hyperglycemia, with long-term current use of insulin ([facility]) (Primary Dx); Encounter for dietary consultation; Vitamin D deficiency; Primary hypertension ([facility]); Insulin long-term use ([facility]); Hyperlipemia, mixed (CMS/HCC); Microalbuminuria; Class 3 severe obesity due to excess calories with serious comorbidity and body mass index (BMI) of 50.0 to 59.9 in adult (CMS/HCC) Start: 05-12-2024 End: 05-12-2024 Clinisync Result Encounter Generic External Data Provider [facility] External Department Unsolicited Start: 05-12-2024 End: 05-12-2024 Clinisync Result Encounter Generic External Data Provider [facility] External Department Unsolicited Start: 05-08-2024 ambulatory SARAH Wilkerson ty:[facility] [place] Start: 04-14-2024 End: 04-14-2024 Bamboo flowsheet Mckayla Aichholz PUBLIC HEALTH INSPECTOR Work Phone: [facility] Start: 04-14-2024 End: 04-14-2024 Bamboo flowsheet Mckayla Aichholz PUBLIC HEALTH INSPECTOR Work Phone: [facility] Start: 04-14-2024 End: 04-14-2024 Office outpatient visit 25 minutes Mckayla Harshadholz PUBLIC HEALTH INSPECTOR Work Phone: [facility] Comment on above: Primary hypertension [...] Start: 04-05-2024 End: 04-06-2024 Refill Mckayla Aichholz PUBLIC HEALTH INSPECTOR Work Phone: [facility] Comment on above: Hyperlipidemia, unsp ecified (CMS/HCC); Bilateral lower extremity edema Vitamin D deficiency , unspecified Start: 01-17-2024 Patient encounter procedure Rain Souza MD Work Phone: [facility] Start: 08-17-2023 Refill Mckayla Aichholz PUBLIC HEALTH INSPECTOR Work Phone: [facility] Comment on above: Vaginal yeast infect ion (Primary Dx) Start: 08-14-2023 Refill Mckayla Aichholz PUBLIC HEALTH INSPECTOR Work Phone: [facility] Comment on above: Type 2 diabetes [...] encounter procedure SARAH VEGA [facility] Start: 10-05-2022 End: 10-05-2022 ambulatory MARIANO [...] 03-08-2022 End: 03-08-2022 ambulatory Stephanie Tico Other [facility] Other Start: 03-08-2022 Office outpatient vi sit 15 minutes Stephanie Tico [facility] Start: 03-03-2022 End: 03-04-2022 ambulatory [employer] MCKAYLA BLAS Facility:[facility] Start: 02-20-2022 End: 02-20-2022 ambulatory Stephanie Tico Other [facility] Other Start: 02-20-2022 Office outpatient ne w 45 minutes Stephanie Tico [facility] Start: 02-06-2022 End: 02-06-2022 Patient encounter procedure Elbert ARAUZ [facility] Start: 01-19-2022 End: 01-20-2022 ambulatory GIL VALENZUELA . Facility:[facility] Start: 12-24-2021 End: 12-24-2021 ambulatory OLE ASHLEY Facility: Start: 08-26-2020 End: 09-10-2020 Patient encounter procedure MARY GABINOLOS Facility:[facility] Start: 10-30-2019 End: 10-30-2019 Emergency department patient visit [facility] Start: 10-30-2019 End: 10-30-2019 Emergency department patient visit [facility] Start: 11-02-2016 Preoperative state Stephanie Tico Other [facility] Other Procedures Date Procedure Procedure Detail Performing [...] Rain Souza MD Work Phone: Start: 10-08-2024 [facility] UA (CLEAN/CATCH) MICROSCOPIC IF INDICATE Mckayla Blas NP Work Phone: Start: 08-27-2024 ALL CBC WITH AUTO DIFF Generic External Data Provider Start: 05-27-2024 Gluc bld gluc mntr d ev cleared fda spec home use Rain Souza MD Work Phone: Start: 05-12-2024 [facility] CREATININE Generic External Data Provider Start: [...] procedure 02/01/2026 6:00 PM EDT Office Visit [facility] [address] [place] [address] Mckayla Blas NP [address] [place] [address] [facility] Start: 01-26-2026 Medicare Annual Wellness (AWV) Medicare Annual Wellness (AWV) [facility] Start: 10-08-2025 Urine screening for protein Diabetes: Urine Protein Screening [facility] Start: 08-03-2025 Screening for malignant neoplasm of colon [facility] Start: 07-14-2025 Glaucoma screening Diabetes: R etinopathy Screening [facility] Start: 05-28-2025 End: 05-28-2025 Patient encounter procedure 05/28/2025 10:30 AM EST Office Visit [facility] [address] [place] [address] Rain Souza MD [address] [place] [address] [facility] Start: 05-13-2025 Glaucoma screening Diabetes: R etinopathy Screening [facility] Start: 05-01-2025 Hemoglobin A1c measurement Diabetes: Hemoglobin A1C [facility] Start: 04-29-2025 End: 04-29-2025 Patient encounter procedure 04/29/2025 6:00 PM EDT Office Visit [facility] [address] [place] [phone] Mckayla Blas, PUBLIC HEALTH INSPECTOR [address] [place] [phone] [facility] Start: 03-09-2025 Influenza vaccination N [facility] Start: 01-28-2025 End: 01-28-2025 Patient encounter procedure 01/28/2025 10:50 AM EDT Office Visit [facility] [address] [place] [address] Rain Souza MD [address] [place] [address] [facility] Start: 01-26-2025 End: 01-26-2025 Patient encounter procedure 01/26/2025 6:00 PM EDT Office Visit [facility] [address] [place] [phone] Mckayla Blas, PUBLIC HEALTH INSPECTOR [address] [place] [phone] [facility] Start: 01-16-2025 Medicare Annual Wellness (AWV) Medicare Annual Wellness (AWV) [facility] Start: 01-07-2025 Hemoglobin A1c measurement Diabetes: Hemoglobin A1C [facility] Start: 12-15-2024 End: 12-27-2025 MG Breast - bilateral Screening Bilateral screening mammogram Imaging Routine Encounter for screening mammogram for malignant neoplasm of breast Expected: 12/15/2024 (Approximate), Expires: 12/27/2025 [facility] Work Phone: Comment on above: Expected: 12/15/2024 (Approximate), Expires: 12/27/2025 Start: 12-13-2024 Screening for malignant neoplasm of breast Mammogram [facility] Start: 11-11-2024 Urine screening for protein Diabetes: Urine Protein Screening [facility] Start: 10-27-2024 End: 10-27-2024 Patient encounter procedure 10/27/2024 2:00 PM EDT Office Visit [facility] [address] [place] [phone] Mckayla Blas, SILVANO [address] [place] [phone] [facility] Start: 10-08-2024 End: 10-08-2024 Patient encounter procedure 10/08/2024 11:20 AM EDT Office Visit [facility] [address] [place] [address] Rain Souza MD [address] [place] [address] [facility] Start: 08-27-2024 End: 08-27-2024 Patient encounter procedure 08/27/2024 5:30 PM EST Office Visit [facility] [address] [place] [phone] Mckayla Blas, SILVANO [address] [place] [phone] [facility] Start: 08-27-2024 End: 08-27-2025 25-hydroxyvitamin D3 [Mass/volume] in Serum or Plasma Vitamin D 25 hydroxy Lab Routine Vitamin deficiency Expected: 08/27/2024 (Approximate), Expires: 08/27/2025 [facility] Comment on above: Expected: 08/27/2024 (Approximate), Expires: 08/27/2025 Start: 08-27-2024 Hemoglobin A1c measurement Diabetes: Hemoglobin A1C [facility] Start: 08-27-2024 End: 08-27-2025 Hepatic function 2000 panel - Serum or Plasma Hepatic function panel Lab Routine Hyperlipidemia, unspecified (CMS/HCC) Expected: 08/27/2024 (Approximate), Expires: 08/27/2025 [facility] Comment on above: Expected: 08/27/2024 (Approximate), Expires: 08/27/2025 Start: 08-27-2024 End: 08-27-2025 Lipid 1996 panel - Serum or Plasma Lipid panel Lab Routine Mixed hyperlipidemia (CMS/HCC) Expected: 08/27/2024 (Approximate), Expires: 08/27/2025 [facility] Work Phone: Comment on above: Expected: 08/27/2024 (Approximate), Expires: 08/27/2025 Start: 08-27-2024 End: 08-27-2025 Microalbumin/Creatini ne panel in random Urine Microalbumin / creatinine, urine ratio Lab Routine Primary hypertension (CMS/HCC) Type 2 diabetes mellitus with complication, with long-term current use of insulin ([facility]) Expected: 08/27/2024 (Approximate), Expires: 08/27/2025 [facility] Comment on above: Expected: 08/27/2024 (Approximate), Expires: 08/27/2025 Start: 08-27-2024 End: 08-27-2025 Urate [Mass/volume] in Serum or Plasma Uric acid Lab Routine Gout, unspecified cause, unspecified chronicity, unspecified site Expected: 08/27/2024 (Approximate), Expires: 08/27/2025 [facility] Comment on above: Expected: 08/27/2024 (Approximate), Expires: 08/27/2025 Start: 08-27-2024 End: 08-27-2025 Urinalysis complete panel - Urine Urinalysis with reflex microscopic (clean catch) Lab Routine Primary hypertension ([facility]) Type 2 diabetes mellitus with complication, with long-term current use of insulin ([facility]) Tobacco user Gout, unspecified cause, unspecified chronicity, unspecified site Expected: 08/27/2024 (Approximate), Expires: 08/27/2025 [facility] Comment on above: Expected: 08/27/2024 (Approximate), Expires: 08/27/2025 Start: 08-26-2024 End: 08-26-2024 Patient encounter procedure 08/26/2024 10:30 AM EST Office Visit [facility] [address] [place] [address] Rain Souza MD [address] [place] [address] [facility] Start: 07-14-2024 End: 07-14-2024 Patient encounter procedure 07/14/2024 6:30 PM EST Office Visit [facility] [address] [place] [address] Mckayla Blas NP [address] [place] [address] [facility] Start: 07-14-2024 End: 07-14-2024 Patient encounter procedure 07/14/2024 10:10 AM EST Office Visit [facility] [address] [place] [address] Rain Souza MD [address] [place] [address] [facility] Start: 06-06-2024 Influenza vaccination Influenza Vacc ine (#1) [facility] Comment on above: Postponed from 03/09 (Patient Refused) Start: 05-27-2024 End: 05-27-2024 Patient encounter procedure 05/27/2024 9:50 AM EST Office Visit [facility] [address] [place] [address] Rain Souza MD [address] [place] [address] [facility] Start: 05-17-2024 Hemoglobin A1c measurement Diabetes: Hemoglobin A1C [facility] Start: 05-15-2024 End: 05-15-2024 Chart abstracting 05/15/2024 Abstract [facility] [address] [place] [address] Rain Souza MD [address] [place] [address] [facility] Start: 05-15-2024 End: 05-15-2024 Patient encounter procedure 05/15/2024 11:20 AM EST Office Visit [facility] [address] [place] [address] Rain Souza MD [address] [place] [address] [facility] Start: 04-17-2024 End: 04-17-2024 Patient encounter procedure 04/17/2024 3:40 PM EDT Office Visit [facility] [address] [place] [address] Mckayla Blas NP [address] [place] [address] [facility] Start: 04-14-2024 End: 04-14-2024 Patient encounter procedure 04/14/2024 11:00 AM EDT Office Visit [facility] [address] [place] [address] Mckayla Blas NP [address] [place] [phone] Arrived [facility] Comment on above: Arrived Start: 03-09-2024 Influenza vaccination Influenza Vacc ine (#1) [facility] Start: 02-19-2024 Hemoglobin A1c measurement Diabetes: Hemoglobin A1C [facility] Start: 11-24-2023 Urine screening for protein Diabetes: Urine Protein Screening [facility] Start: 11-23-2023 Screening for malignant neoplasm of breast Mammogram [facility] Start: 10-15-2023 End: 10-15-2023 Patient encounter procedure 10/15/2023 4:30 PM EDT [facility] [address] [place] [address] Mckayla Blas NP [address] [place] [phone] [facility] Start: 08-09-2023 Hemoglobin A1c measurement Diabetes: Hemoglobin A1C [facility] Start: 05-27-2021 Glaucoma screening Diabetes: R etinopathy Screening [facility] Start: 03-09-2020 Influenza vaccination Flu vacc ine (Season Ended) [place], [place] Start: 10-07-2018 Screening for malignant neoplasm of cervix [facility] Start: 2010 Lipid panel Lipid screen [place], [place] Start: 2000 Screening for malignant neoplasm of cervix HPV/Cotest [facility] Start: 1991 Screening for malignant neoplasm of cervix Cervical cancer screen [place], [place] Start: 1989 DTaP/Tdap/Td vaccine (1 - Tdap) DTaP/Tdap/Td vaccine ( - Tdap) [place], [place] Start: 1985 HIV screening HIV screen [place], [place] Start: 1970 Medicare Annual Wellness (AWV) Medicare Annual Wellness (AWV) [facility] Start: 1970 Screening for malignant neoplasm of colon [facility] BLOOD CULTURE 1 BLOOD CULTURE 1 Lab Routine 12/04/2024 4:44 PM EDT [facility] BLOOD CULTURE 2 BLOOD CULTURE 2 Lab Routine 12/04/2024 5:28 PM EDT [facility] Immunizations Immunization Date Immunization Notes Care Provider Judie lucas 05-18-2023 influenza, injectabl e, quadrivalent, contains preservative Mckayla Blas PUBLIC HEALTH INSPECTOR Work Phone: [facility] 05-18-2023 influenza virus vacc ine, unspecified formulation Rain Souza MD Work Phone: [facility] 07-19-2021 SARS-CoV-2 (COVID-19 ) mRNA BNT-162b2 vax [employer] [facility] 10-28-2020 SARS-CoV-2 (COVID-19 ) mRNA BNT-162b2 vax [employer] [facility] 10-08-2020 SARS-CoV-2 (COVID-19 ) mRNA BNT-162b2 vax [employer] [facility] 04-16-2017 influenza virus vacc ine, H5N1, A/ (national stockpile) Mckayla Blas PUBLIC HEALTH INSPECTOR Work Phone: [facility] 04-16-2017 influenza virus vacc ine, unspecified formulation Rain Souza MD Work Phone: [facility] 04-16-2017 influenza, unspecifi ed formulation Elbert ARAUZ [facility] 04-16-2017 pneumococcal polysaccharide vaccine, 23 valent Rain Souza MD Work Phone: [facility] 05-10-2016 influenza virus vacc ine, H5N1, A/ (national stockpile) Mckayla Blas PUBLIC HEALTH INSPECTOR Work Phone: [facility] 05-10-2016 influenza virus vacc ine, unspecified formulation Rain Souza MD Work Phone: [facility] 05-10-2016 influenza, unspecifi ed formulation Elbert ARAUZ [facility] 05-02-2013 influenza virus vacc ine, whole virus Rain Souza MD Work Phone: [facility] 05-02-2013 influenza, injectabl e, quadrivalent, contains preservative Mckayla Blas PUBLIC HEALTH INSPECTOR Work Phone: [facility] 05-02-2013 influenza, whole Elbert BARBARA ERS [facility] 01-29-1998 measles, mumps and rubella virus vaccine Rain Souza MD Work Phone: [facility] Payers Date Payer Category Payer Unknown [id number] 2023 Medicare (Managed Care) 1.2. [id number] 2023 Private Health Insurance [facility] [id number] 2023-Present [address] [address] [place] [address] [id number] 2023 Medicare [id number] 2018 Medicaid MEDICAID [facility] [id number] 2018-Present [phone] [address] [place] [address] Medicaid [id number] 2013 Medicare [id number]. [id number] 1970 Unknown [id number] 2.16.840.1.687832.3.579.2. 647 1970 Unknown [id number] 2.16.840.1.415653.3.579.2. 593 1970 Unknown [id number] 2.16.840.1.647410.3.579.2. 593 1970 Unknown [id number] 2.16.840.1.248197.3.579.2. 593 1970 Unknown [id number] 2.16.840.1.247535.3.579.2. 593 1970 Unknown [id number] 2.16.840.1.089686.3.579.2. 593 1970 Unknown [id number] 2.16.840.1.214111.3.579.2. 593 1970 Unknown [id number] 2.16.840.1.041179.3.579.2. 593 1970 Unknown [id number] 2.16.840.1.463136.3.579.2. 593 1970 Unknown [id number] 2.16.840.1.498892.3.579.2. 593 1970 Unknown [id number] 2.16.840.1.930467.3.579.2. 593 1970 Unknown [id number] 2.16.840.1.877510.3.579.2. 593 1970 Unknown [id number] 2.16.840.1.501968.3.579.2. 593 1970 Unknown [id number] 2.16.840.1.375803.3.579.2. 593 1970 Unknown [id number] 2.16.840.1.280953.3.579.2. 593 1970 Unknown [id number] 2.16.840.1.686455.3.579.2. 593 1970 Unknown [id number] 2.16.840.1.461328.3.579.2. 593 1970 Unknown [id number] 2.16.840.1.357006.3.579.2. 593 1970 Unknown [id number] 2.16.840.1.941591.3.579.2. 593 1970 Unknown [id number] 2.16.840.1.027004.3.579.2. 593 1970 Unknown [id number] 2.16.840.1.516724.3.579.2. 593 1970 Unknown [id number] 2.16.840.1.774726.3.579.2. 593 1970 Unknown [id number] 2.16.840.1.588664.3.579.2. 593 1970 Unknown [id number] 2.16840.1.166721.3.579.2. 727 1970 Unknown [id number] 2.16.840.1.782836.3.579.2. 727 1970 Unknown [id number] 2.16.840.1.131942.3.579.2. 1259 1970 Unknown [id number] 2.16.840.1.853074.3.579.2. 1259 1970 Unknown [id number] 2.16.840.1.170850.3.579.2. 1259 1970 Unknown [id number] 2.16.840.1.492649.3.579.2. 1259 1970 Unknown [id number] 2.16.840.1.992332.3.579.2. 1259 1970 Unknown [id number] 2.16.840.1.036338.3.579.2. 1259 1970 Unknown [id number] 2.16.840.1.881748.3.579.2. 1259 1970 Unknown [id number] 2.16.840.1.326854.3.579.2. 1259 1970 Unknown [id number] 2.16.840.1.582847.3.579.2. 1259 1959 Medicaid [id number] 1959 Private Health Insurance [id number] 1959 Unknown [id number] 2.16.840.1.476934.19 Social History Date Type Detail Facility Start: 02-17-2014 End: 01-29-2025 Tobacco smoking status NHIS Current every day smoker [place], [place] Start: 02-17-1994 History of tobacco use Cigarette Smo ker [place], [place] Start: 02-17-2014 End: 08-26-2024 Cigarettes smoked current (pack per day) - Reported [place], [place] Start: 02-17-2014 Alcohol intake Current drinke r of alcohol (finding) [place] Start: 02-17-2014 Alcohol Comment Rare [place], [place] Start: 1970 Sex Assigned At Not on file M [place], [place] Exposure to SARS-CoV -2 (event) Unable to assess [place] Start: 02-06-2022 Tobacco smoking status Smoker (findi ng) [facility] Start: 07-10-2023 End: 08-26-2024 Sex Assigned At Female [facility] Start: 11-15-2022 End: 06-11-2024 Tobacco smoking status Heavy tobacco smoker (finding) [facility] Start: 07-10-2023 End: 01-29-2025 Tobacco use and exposure Smokeless tobacco non-user [facility] Start: 07-10-2023 End: 01-29-2025 Alcohol intake Lifetime non-drinker (finding) [facility] Within the last year , have you been afraid of your partner or ex-partner? No [facility] Do you belong to any clubs or organizations such as anabaptist groups, unions, fraternal [...] Equipment Origin al Text Equipment Identifier Dates [id number] Start: 01-18-2024 USE TO TEST BLOO D SUGAR 4 TIMES DAILY [id number] Start: 07-07-2024 Functional Status Date Assessment Result Facility 01-26-2025 Patient Health Quest ionnaire 2 item (PHQ-2) [Reported] [facility] 01-26-2025 Trouble falling or s taying asleep, or sleeping too much Not at all 01/26/2025 4:13 PM EDT Mychart, Generic Not at all [facility] 01-26-2025 Feeling tired or hav ing little energy Not at all 01/26/2025 4:13 PM EDT Mychart, Generic Not at all [facility] 01-26-2025 Poor appetite or overeating Not at all 01/26/2025 4:13 PM EDT Mychart, Generic Not at all [facility] 01-26-2025 Feeling bad about yourself-or that you are a failure or have let yourself or your family down Not at all 01/26/2025 4:13 PM EDT Mychart, Generic Not at all [facility] 01-26-2025 Trouble concentratin g on things, such as reading the newspaper or watching television Not at all 01/26/2025 4:13 PM EDT Mychart, Generic Not at all [facility] 01-26-2025 Moving or speaking s o slowly that other people could have noticed. Or the opposite - being so fidgety or restless that you have been moving around a lot more than usual Not at all 01/26/2025 4:13 PM EDT Mychart, Generic Not at all [facility] 01-26-2025 Thoughts that you wo uld be better off , or of hurting yourself in some way Not at all 01/26/2025 4:13 PM EDT Mychart, Generic Not at all [facility] 06-11-2024 Functional Status N/A [facility] 11-15-2022 Functional Status N/A [facility] 02-06-2022 Functional Status N/A [facility] Clinical Notes 01-19-2022 to 02-04-2025 Rain [...] Follow-up as planned in 6 months. Thanks! [facility] 01-29-2025 History of Present illness Narrative [...] 25 mg, Oral, 2 times daily HYDROcodone-acetaminophen (Onekama) 5-325 MG tablet 1 tablet, 3 times [...] Angiomyolipoma Anxiety and depression 07/10/2023 Asthma ([facility]) 07/10/2023 Body mass index (BMI) 50.0-59.9, adult ([facility]) Cellulitis of left lower extremity Cervical cancer ([facility]) 09/17/2023 Chronic pain of both knees 09/17/2023 COPD (chronic obstructive pulmonary disease) ([facility]) 07/10/2023 COPD exacerbation ([facility]) 09/17/2023 Decreased functional mobility 09/17/2023 Diabetic neuropathy ([facility]) 07/10/2023 Dietary counseling and surveillance Edema 07/10/2023 Elevated sed rate Elevated WBC count Essential (primary) hypertension GERD (gastroesophageal reflux disease) 09/17/2023 Hyperlipidemia 09/17/2023 Hypertension 07/10/2023 Insomnia 09/17/2023 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 ([facility]) Lower extremity edema 09/17/2023 Mixed hyperlipidemia Morbid (severe) obesity due to excess calories ([facility]) Obstructive sleep apnea 07/10/2023 PAD (peripheral artery disease) 09/17/2023 Pancreatitis ([facility]) 09/17/2023 Pneumonia 09/17/2023 Proteinuria, unspecified Pulmonary hypertension ([facility]) 09/17/2023 Radiculopathy, lumbar region 09/17/2023 Tobacco user 09/17/2023 Type 2 diabetes mellitus with complication, with long-term current use of insulin ([facility]) 07/10/2023 Unilateral primary osteoarthritis, right hip [...] (BMI) of 50.0 to 59.9 in adult ([facility]) Diet and exercise reviewed with the patient Follow up in about 4 months (around 06/01/2025). 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 Associated Problem(s): COPD (chronic [...] 25 mg, Oral, 2 times daily HYDROcodone-acetaminophen (Onekama) 5-325 MG tablet 1 tablet, 3 times [...] of left lower extremity Cervical cancer ([facility]) 09/17/2023 Chronic pain of both knees 09/17/2023 COPD (chronic obstructive pulmonary disease) ([facility]) 07/10/2023 COPD exacerbation ([facility]) 09/17/2023 Decreased functional mobility 09/17/2023 Diabetic neuropathy ([facility]) 07/10/2023 Dietary counseling and surveillance Edema 07/10/2023 Elevated sed rate Elevated WBC count Essential (primary) hypertension GERD (gastroesophageal reflux disease) 09/17/2023 Hyperlipidemia 09/17/2023 Hypertension 07/10/2023 Insomnia 09/17/2023 detention (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 ([facility]) Lower extremity edema 09/17/2023 Mixed hyperlipidemia Morbid (severe) obesity due to excess calories ([facility]) Obstructive sleep apnea 07/10/2023 PAD (peripheral artery disease) 09/17/2023 Pancreatitis ([facility]) 09/17/2023 Pneumonia 09/17/2023 Proteinuria, unspecified Pulmonary hypertension ([facility]) 09/17/2023 Radiculopathy, lumbar region 09/17/2023 Tobacco user 09/17/2023 Type 2 diabetes mellitus with complication, with long-term current use of insulin ([facility]) 07/10/2023 Unilateral primary osteoarthritis, right hip [...] 7.4%!!! 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 Hypertension Please check blood [...] amitriptyline (Elavil) 25 MG tablet Pulmonary hypertension ([facility]) Has seen [facility] Cardiology Hyperlipidemia On statin therapy Check [...] Morbid (severe) obesity due to excess calories ([facility]) Discussed with patient their BMI (actual, [...] Problem(s): Pulmonary hypertension (HCC) Has seen [facility] Cardiology Associated Problem(s): Hypertension Please check blood [...] a yearly basis documented in this encounter [facility] 01-26-2025 Instructions Mckayla Blas NP - 01/26/2025 6:00 PM EDT Please call the [facility] to schedule your mammogram: [phone]- ext [phone] documented in this encounter [facility] 01-06-2025 Note Cardiovascular Medic [facility] SUBJECTIVE Chief Complaint Patient presents with Congestive Heart Failure Hypertension Hyperlipidemia Mitzi Macias is a 54 y.o. female here for follow-up. PMHx: HFpEF, HTN, HLD, DM, longstanding heavy smoker, COPD, DANIEL, morbid obesity HPI 01/06/2025 Since last seen she was admitted to [facility] for AMS on 12/05/2024. She was [...] syndrome (CMS/HCC) Decreased functional mobility Diabetic neuropathy ([facility]/HCC) Easy bruising GERD (gastroesophageal reflux [...] complication, with long-term current use of insulin ([facility]) Unilateral primary osteoarthritis, right hip Vaginal yeast infection Venous insufficiency Bad odor of urine Critical limb ischemia of right lower extremity ([facility]) Hyperpigmentation of skin 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 2 diabetes mellitus ([facility]) Myelolipoma of adrenal gland Venous ulcer of right leg ([facility]CC) Chronic diastolic heart failure ([facility]) Antibiotic-induced yeast infection Cellulitis of left lower extremity Cigarette nicotine dependence without complication Fever 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 ([facility]) detention current use of inhaled steroid Vitamin D deficiency, unspecified Vitamin deficiency Past Medical History: Diagnosis Date COPD (chronic obstructive pulmonary disease) ([facility]/HCC) Diabetes mellitus ([facility]) Hyperlipidemia Hypertension Sleep apnea Family History Problem [...] , Rfl: ergocalciferol (Vitamin D-2) 1.25 MG (11018 Units) capsule, Take 1.25 mg by mouth., [...] and at bedtime., Disp: , Rfl: HYDROcodone-acetaminophen (Onekama) 5-325 mg tablet, TAKE 1 TABLET BY MOUTH THREE TIMES A DAY NEEDED FOR PAIN MUST LAST 30 DAYS, Disp: , Rfl: insulin aspart (NovoLOG) 100 unit/mL (3 mL) injection pen, Novolog Flexpen U-100 Insulin aspart 100 unit/mL (3 mL) subcutaneous, Disp: , Rfl: insulin glargine (Lantus Solostar U-100 Insulin) 100 unit/mL (3 mL) injection pen (more content not included)... [facility] 01-06-2025 Note Patient is here toda [...] weight gain. Cardiovascular: Positive for leg swelling. [facility] 12-09-2024 History of Present illness Narrative [...] bad light. She was ultimately taken to [facility] ER, no tox screen was done [...] 25 mg, Oral, 2 times daily HYDROcodone-acetaminophen (Onekama) 5-325 MG tablet 1 tablet, 3 times [...] CT Albuminuria 09/17/2023 Angiomyolipoma Anxiety and depression ([facility]) 07/10/2023 Asthma 07/10/2023 Body mass index (BMI) 50.0-59.9, adult ([facility]) Cellulitis of left lower extremity Cervical cancer ([facility]) 09/17/2023 Chronic pain of both knees 09/17/2023 COPD (chronic obstructive pulmonary disease) ([facility]) 07/10/2023 COPD exacerbation ([facility]) 09/17/2023 Decreased functional mobility 09/17/2023 Diabetic neuropathy ([facility]) 07/10/2023 Dietary counseling and surveillance Edema 07/10/2023 Elevated sed rate Elevated WBC count Essential (primary) hypertension ([facility] GERD (gastroesophageal reflux disease) 09/17/2023 Hyperlipidemia ([facility]) 09/17/2023 Hypertension ([facility]) 07/10/2023 Insomnia 09/17/2023 detention (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 ([facility]) Lower extremity edema 09/17/2023 Mixed hyperlipidemia ([facility]) Morbid (severe) obesity due to excess calories ([facility]) Obstructive sleep apnea 07/10/2023 PAD (peripheral artery disease) ([facility]) 09/17/2023 Pancreatitis 09/17/2023 Pneumonia 09/17/2023 Proteinuria, unspecified Pulmonary hypertension ([facility]) 09/17/2023 Radiculopathy, lumbar region 09/17/2023 Tobacco user 09/17/2023 Type 2 diabetes mellitus with complication, with long-term current use of insulin ([facility]) 07/10/2023 Unilateral primary osteoarthritis, right [...] Problem List Items Addressed This Visit Hypertension ([facility]) Please check blood pressure daily and record DASH diet Limit caffeine Take medication as directed Contact office if chest pain, pressure, dizziness, shortness of breath, swelling legs Recommend slow position changes Current meds: hydralazine, lisinopril, Type 2 diabetes mellitus with complication, with long-term current use of insulin ([facility]) Check blood sugars daily, notify if [...] secondary to her steroids Anxiety and depression ([facility]) Current meds: elavil, duloxtine, COPD exacerbation ([facility]) Recent ER visit for unresponsiveness , found to have fever and elevated WBC Sent home with steroids and atb Breathing is better and she feels back to her normal baseline Does have home O2, she is not wearing this today Pulmonary hypertension ([facility]) Has seen [facility] Cardiology Morbid (severe) obesity due to excess calories ([facility]) Discussed with patient their BMI (actual, [...] Finish atb's Associated Problem(s): Anxiety and depression ([facility]) Current meds: elavil, duloxtine, Associated Problem(s): Type 2 diabetes mellitus with complication, with long-term current use of insulin ([facility]) Check blood sugars daily, notify if [...] Problem(s): Pulmonary hypertension (CMS/HCC) Has seen [facility] Cardiology Associated Problem(s): Hypertension (CMS/HCC) Please check [...] wearing this today documented in this encounter [facility] 12-09-2024 Instructions Mckayla Blas NP - 12/09/2024 10:00 AM EDT Keep appt with wound care today Keep fu with me, sooner if needed documented in this encounter [facility] 10-27-2024 History of Present illness Narrative [...] 25 mg, Oral, 2 times daily HYDROcodone-acetaminophen (Onekama) 5-325 MG tablet 1 tablet, 3 times [...] CT Albuminuria 09/17/2023 Angiomyolipoma Anxiety and depression ([facility]) 07/10/2023 Asthma 07/10/2023 Body mass index (BMI) 50.0-59.9, adult ([facility]) Cellulitis of left lower extremity Cervical cancer ([facility]) 09/17/2023 Chronic pain of both knees 09/17/2023 COPD (chronic obstructive pulmonary disease) ([facility]) 07/10/2023 COPD exacerbation ([facility]) 09/17/2023 Decreased functional mobility 09/17/2023 Diabetic neuropathy ([facility]) 07/10/2023 Dietary counseling and surveillance Edema 07/10/2023 Elevated sed rate Elevated WBC count Essential (primary) hypertension ([facility]) GERD (gastroesophageal reflux disease) 09/17/2023 Hyperlipidemia ([facility]) 09/17/2023 Hypertension ([facility]) 07/10/2023 Insomnia 09/17/2023 detention (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 ([facility]) Lower extremity edema 09/17/2023 Mixed hyperlipidemia ([facility]) Morbid (severe) obesity due to excess calories ([facility]) Obstructive sleep apnea 07/10/2023 PAD (peripheral artery disease) ([facility]) 09/17/2023 Pancreatitis 09/17/2023 Pneumonia 09/17/2023 Proteinuria, unspecified Pulmonary hypertension ([facility]) 09/17/2023 Radiculopathy, lumbar region 09/17/2023 Tobacco user 09/17/2023 Type 2 diabetes mellitus with complication, with long-term current use of insulin ([facility]) 07/10/2023 Unilateral primary osteoarthritis, right [...] complication, with long-term current use of insulin ([facility]) Check blood sugars daily, notify if [...] 81 MG chewable tablet Anxiety and depression ([facility]) Current meds: elavil, duloxtine, Relevant Medications DULoxetine (Cymbalta) [address] capsule Bilateral lower extremity edema Limit sodium , elevate legs, furosemide Relevant Medications furosemide (Lasix) 20 MG tablet potassium chloride ER (Micro-K) 10 MEQ ER capsule furosemide (Lasix) 40 MG tablet Insomnia Relevant Medications amitriptyline (Elavil) 25 MG tablet PAD (peripheral artery disease) ([facility]) Asa, statin Quit smoking BP and DM [...] MG tablet Venous ulcer of right leg ([facility]) Continue with wound care and management of wound, currently they are using dakins Wound is improving Morbid (severe) obesity due to excess calories ([facility]) Discussed with patient their BMI (actual, [...] mounjaro for DM Chronic diastolic heart failure ([facility]) Current meds; asa, farxiga, lasix, hydralazine, lisinopril, Follows with [facility] Reviewed 08/02 notes Cigarette nicotine dependence without complication Is currently using chantix, and is doing well, less desire, smoking less Vitamin D deficiency, unspecified Relevant Medications ergocalciferol (Vitamin D2) 1.25 MG (61199 UT) capsule Gastro-esophageal reflux disease without esophagitis Relevant Medications omeprazole (PriLOSEC) [address] capsule Other Visit Diagnoses Type 2 diabetes mellitus with unspecified complications Relevant Medications dapagliflozin (Farxiga) 10 MG Associated Problem(s): Cigarette nicotine dependence without complication Is currently using chantix, and is doing well, less desire, smoking less Associated Problem(s): Anxiety and depression ([facility]) Current meds: elavil, duloxtine, Associated Problem(s): Type 2 diabetes mellitus with complication, with long-term current use of insulin ([facility]) Check blood sugars daily, notify if [...] A1c is 7.4%!!! documented in this encounter [facility] 10-27-2024 Instructions Mckayla Blas NP - 10/27/2024 2:00 PM EDT No dose changes in meds You will be due for mammogram I will send order to [facility], they should call you to schedule If no call, please call [phone] documented in this encounter [facility] 10-08-2024 History of Present illness Narrative [...] or chew. ergocalciferol (Vitamin D2) 1.25 MG (06970 UT) capsule TAKE 1 CAPSULE BY MOUTH [...] 25 mg, Oral, 2 times daily HYDROcodone-acetaminophen (Onekama) 5-325 MG tablet 1 tablet, 3 times [...] CT Albuminuria 09/17/2023 Angiomyolipoma Anxiety and depression ([facility]) 07/10/2023 Asthma ([facility]) 07/10/2023 Body mass index (BMI) 50.0-59.9, adult ([facility]) Cellulitis of left lower extremity Cervical cancer ([facility]) 09/17/2023 Chronic pain of both knees 09/17/2023 COPD (chronic obstructive pulmonary disease) ([facility]) 07/10/2023 COPD exacerbation ([facility] 09/17/2023 Decreased functional mobility 09/17/2023 Diabetic neuropathy ([facility]) 07/10/2023 Dietary counseling and surveillance Edema 07/10/2023 Elevated sed rate Elevated WBC count Essential (primary) hypertension ([facility]) GERD (gastroesophageal reflux disease) 09/17/2023 Hyperlipidemia ([facility]) 09/17/2023 Hypertension ([facility]) 07/10/2023 Insomnia 09/17/2023 detention (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 ([facility] [facility] Lower [place] edema 09/17/2023 Mixed hyperlipidemia [place] Morbid (severe) obesity due to excess calories [place] Obstructive sleep apnea 07/10/2023 PAD (peripheral artery disease) ([facility] 09/17/2023 Pancreatitis 09/17/2023 Pneumonia 09/17/2023 Proteinuria, unspecified Pulmonary hypertension ([facility] 09/17/2023 Radiculopathy, lumbar region 09/17/2023 Tobacco user 09/17/2023 Type 2 diabetes mellitus with complication, with long-term current use of insulin ([facility] 07/10/2023 Unilateral primary osteoarthritis, right [...] hyperglycemia, with long-term current use of insulin ([facility]) - POCT glucose manually resulted - POCT [...] months (around 02/07/2025). documented in this encounter [facility] 08-27-2024 History of Present illness Narrative [...] or chew. ergocalciferol (Vitamin D2) 1.25 MG (53715 UT) capsule TAKE 1 CAPSULE BY MOUTH [...] 25 mg, Oral, 2 times daily HYDROcodone-acetaminophen (Onekama) 5-325 MG tablet 1 tablet, 3 times [...] CT Albuminuria 09/17/2023 Angiomyolipoma Anxiety and depression ([facility] 07/10/2023 Asthma ([facility] 07/10/2023 Body mass index (BMI) 50.0-59.9, adult [place] Cellulitis of left lower extremity Cervical cancer ([facility]) 09/17/2023 Chronic pain of both knees 09/17/2023 COPD (chronic obstructive pulmonary disease) [place] 07/10/2023 COPD exacerbation ([facility] 09/17/2023 Decreased functional mobility 09/17/2023 Diabetic neuropathy ([facility] 07/10/2023 Dietary counseling and surveillance Edema 07/10/2023 Elevated sed rate Elevated WBC count Essential (primary) hypertension ([facility] GERD (gastroesophageal reflux disease) 09/17/2023 Hyperlipidemia ([facility]) 09/17/2023 Hypertension ([facility]) 07/10/2023 Insomnia 09/17/2023 detention (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 ([facility] Lower extremity edema 09/17/2023 Mixed hyperlipidemia ([facility]) Morbid (severe) obesity due to excess calories ([facility] Obstructive sleep apnea 07/10/2023 PAD (peripheral artery disease) ([facility]) 09/17/2023 Pancreatitis 09/17/2023 Pneumonia 09/17/2023 Proteinuria, unspecified Pulmonary hypertension ([facility]) 09/17/2023 Radiculopathy, lumbar region 09/17/2023 Tobacco user 09/17/2023 Type 2 diabetes mellitus with complication, with long-term current use of insulin ([facility]) 07/10/2023 Unilateral primary osteoarthritis, right hip [...] List Items Addressed This Visit Diabetic neuropathy ([facility]) Continue with cintia hudson mgmt is prescribing OARRS reviewed Fu in 3 months Goal: tighter glucose control Hypertension ([facility]) Please check blood pressure daily and [...] complication, with long-term current use of insulin ([facility]) Check blood sugars daily, notify if [...] / creatinine, urine ratio Anxiety and depression ([facility]) - Primary Current meds: elavil, duloxtine, PHQ [...] PPI Malignant neoplasm of cervix uteri, unspecified ([facility]) Had in the past, had hysterectomy Tobacco [...] lisinopril, Associated Problem(s): Chronic diastolic heart failure ([facility]) Current meds; asa, farxiga, lasix, hydralazine, lisinopril, Follows with [facility] Reviewed 08/02 notes Associated Problem(s): COPD (chronic obstructive pulmonary disease) ([facility]) Follows with verena Needs smoking cessation Current meds: duoneb, albuterol, daliresp, Associated Problem(s): Asthma ([facility]) Current meds: albuterol, duoneb, 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 Associated Problem(s): Obstructive sleep [...] tighter glucose control documented in this encounter [facility] 08-08-2024 Note [place] [facility] Subjective Mitzi Macias is a [...] Diagnosis Date COPD (chronic obstructive pulmonary disease) ([facility]) Diabetes mellitus ([facility]) Hyperlipidemia Hypertension Sleep apnea Past Surgical History: [...] , Rfl: ergocalciferol (Vitamin D-2) 1.25 MG (54249 Units) capsule, Take 1.25 mg by mouth., [...] and at bedtime., Disp: , Rfl: HYDROcodone-acetaminophen (Onekama) 5-325 mg tablet, TAKE 1 TABLET BY [...] Disp: (more content not included)... [facility] 07-14-2024 History of Present illness Narrative [...] or chew. ergocalciferol (Vitamin D2) 1.25 MG (02214 UT) capsule TAKE 1 CAPSULE BY MOUTH ONE TIME PER WEEK furosemide (LASIX) 40 mg, Oral, Daily furosemide (LASIX) 20 mg, Oral, Daily PRN, Take in the afternoon as needed hydrALAZINE (APRESOLINE) 25 mg, Oral, 2 times daily HYDROcodone-acetaminophen (Onekama) 5-325 MG tablet 1 tablet, 3 times [...] CT Albuminuria 09/17/2023 Angiomyolipoma Anxiety and depression ([facility] 07/10/2023 Asthma ([facility] 07/10/2023 Body mass index (BMI) 50.0-59.9, adult ([facility] Cellulitis of left lower extremity Cervical cancer ([facility] 09/17/2023 Chronic pain of both knees 09/17/2023 COPD (chronic obstructive pulmonary disease) ([facility] 07/10/2023 COPD exacerbation ([facility] 09/17/2023 Decreased functional mobility 09/17/2023 Diabetic neuropathy ([facility] 07/10/2023 Dietary counseling and surveillance Edema 07/10/2023 Elevated sed rate Elevated WBC count Essential (primary) hypertension ([facility] GERD (gastroesophageal reflux disease) 09/17/2023 Hyperlipidemia ([facility] 09/17/2023 Hypertension ([facility] 07/10/2023 Insomnia 09/17/2023 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 ([facility] Lower extremity edema 09/17/2023 Mixed hyperlipidemia ([facility] Morbid (severe) obesity due to excess calories ([facility] Obstructive sleep apnea 07/10/2023 PAD (peripheral artery disease) ([facility] 09/17/2023 Pancreatitis 09/17/2023 Pneumonia 09/17/2023 Proteinuria, unspecified Pulmonary hypertension ([facility]) 09/17/2023 Radiculopathy, lumbar region 09/17/2023 Tobacco user 09/17/2023 Type 2 diabetes mellitus with complication, with long-term current use of insulin ([facility] 07/10/2023 Unilateral primary osteoarthritis, right [...] List Items Addressed This Visit Diabetic neuropathy ([facility]) Continue with tristan EAST reviewed Fu in 3 months COPD (chronic obstructive pulmonary disease) ([facility]) Stable at this time, no changes in meds Encouraged smoking cessation Cont with dr Yañez Hypertension ([facility]) - Primary Please check blood pressure daily and record DASH diet Limit caffeine Take medication as directed Contact office if chest pain, pressure, dizziness, shortness of breath, swelling legs Recommend slow position changes Current meds: hydralazine, lisinopril, Type 2 diabetes mellitus with complication, with long-term current use of insulin ([facility]) Check blood sugars daily, notify if [...] 1 cm to 4 cm in diameter ([facility]) Continue with Urology Kidney stone Continue with Urology Non-seasonal allergic rhinitis Relevant Medications cetirizine (ZyrTEC) 10 MG tablet Critical limb ischemia of right lower extremity ([facility]) Saw vascular, does have narrowing in arteries in legs, and thus the wounds not healing At this point they strongly urge to quit smoking or risk limb amputation Cont asa and statin Also good blood pressure and sugar control Venous ulcer of right leg ([facility]) Encounter for smoking cessation counseling Relevant Medications nicotine (Nicoderm, Step 1) 21 MG/24HR patch Other Visit Diagnoses Type 2 diabetes mellitus with unspecified complications ([facility]) Quitting smokinppd, chantix not helped, ] Face [...] complication, with long-term current use of insulin ([facility]) Check blood sugars daily, notify if [...] PPI Associated Problem(s): PAD (peripheral artery disease) ([facility]) Asa, statin Quit smoking BP and DM [...] in 3 months documented in this encounter [facility] 06-11-2024 Hospital Discharge instructions Patient [...] require a prescription. You can also purchase ikss-nig-rceckau medicines. Medicines may have nicotine in them [...] and encouragement. Call telephone quitlines, such as 4-900-WMTN-NOW, reach out to support groups, or work [...] provider. Document Revised: 06/16/2022 Document Reviewed: 06/16/2022 [employer] Patient Education 2023 [employer]. 06/11/2024 10:39:22 Dietary Guidelines to Help Prevent [...] include: ?8 oz (237 mL) of milk, wgpcwbm-tgewuiuglrvm-ikqpw milk, and calcium-fortifiedfruit juice. Calcium-fortified means that [...] ?Spinach (cooked), rhubarb, beets, sweet potatoes, and [place] chard. ?Peanuts. ?Potato chips, nigerian fries, and baked potatoes with skin on. ?Nuts and nut products. ?Chocolate. If you regularly take a diuretic medicine, make sure to eat at least 1 or 2 servings of fruits or vegetables that are high in potassium each day. These include: ?Avocado. ?Banana. ?[place], prune, carrot, or tomato juice. ?Baked potato. [...] magnesium, fish oil, or vitamin B6. Take wepv-lge-unaplty and prescription medicines only as told by [...] provider. Document Revised: 10/05/2022 Document Reviewed: 10/05/2022 [employer] Patient Education 2023 [employer]. Follow Up Care 05/06/2024 08:24:56 With:REGLA PHIPPS, Elbert Joya, URL Address: [facility] [address] , [place] [address]- When: Unknown [facility] 05-27-2024 History of Present illness Narrative Mitzi [...] or chew. ergocalciferol (Vitamin D2) 1.25 MG (98014 UT) capsule TAKE 1 CAPSULE BY MOUTH ONE TIME PER WEEK furosemide (LASIX) 20 mg, Oral, Daily PRN, Take in the afternoon as needed furosemide (LASIX) 40 mg, Oral, Daily Glucose Blood (ACCU-CHEK JAQUI PLUS ) 4 times daily hydrALAZINE (APRESOLINE) 25 mg, Oral, 2 times daily HYDROcodone-acetaminophen (Onekama) 5-325 MG tablet 1 tablet, 3 times [...] CT Albuminuria 09/17/2023 Angiomyolipoma Anxiety and depression ([facility]) 07/10/2023 Asthma ([facility]) 07/10/2023 Body mass index (BMI) 50.0-59.9, adult ([facility]) Cellulitis of left lower extremity Cervical cancer ([facility]) 09/17/2023 Chronic pain of both knees 09/17/2023 COPD (chronic obstructive pulmonary disease) ([facility]) 07/10/2023 COPD exacerbation [place] 09/17/2023 Decreased functional mobility 09/17/2023 Diabetic neuropathy ([facility] 07/10/2023 Dietary counseling and surveillance Edema 07/10/2023 Elevated sed rate Elevated WBC count GERD (gastroesophageal reflux disease) 09/17/2023 Hyperlipidemia ([facility] 09/17/2023 Hypertension ([facility] 07/10/2023 Insomnia 09/17/2023 detention (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 ([facility] Lower extremity edema 09/17/2023 Morbid (severe) obesity due to excess calories ([facility] Obstructive sleep apnea 07/10/2023 PAD (peripheral artery disease) ([facility] 09/17/2023 Pancreatitis 09/17/2023 Pneumonia 09/17/2023 Proteinuria, unspecified Pulmonary hypertension ([facility] 09/17/2023 Radiculopathy, lumbar region 09/17/2023 Tobacco user 09/17/2023 Type 2 diabetes mellitus with complication, with long-term current use of insulin ([facility] 07/10/2023 Unilateral primary osteoarthritis, right [...] hyperglycemia, with long-term current use of insulin ([facility]) - POCT glucose manually resulted - POCT glycosylated hemoglobin (Hb A1C) docked device We will continue with Lantus 58, lispro 02/16/12 according to meal size, Mounjaro 15 mg once weekly, Farxiga 5 mg once a day Encounter for dietary consultation Vitamin D deficiency Primary hypertension ([facility]) To follow with her PCP Insulin long-term use ([facility]) Hyperlipemia, mixed ([facility]) Continue with Zocor 10 mg once daily Microalbuminuria Class 3 severe obesity due to excess calories with serious comorbidity and body mass index (BMI) of 50.0 to 59.9 in adult ([facility]) Diet and exercise reviewed with the patient Follow up in about 3 months (around 08/27/2024). documented in this encounter [facility] 04-14-2024 History of Present illness [...] being taken. She does not see a insurance operations rep.Eye exam is not current. Hypertension This is [...] or chew. ergocalciferol (Vitamin D2) 1.25 MG (52105 UT) capsule TAKE 1 CAPSULE BY MOUTH ONE TIME PER WEEK furosemide (LASIX) 20 mg, Oral, Daily PRN, Take in the afternoon as needed furosemide (LASIX) 40 mg, Oral, Daily Glucose Blood (ACCU-CHEK JAQUI PLUS ) 4 times daily HumaLOG KWIKPEN 100 UNIT/ML injection Subcutaneous hydrALAZINE (APRESOLINE) 25 mg, Oral, 2 times daily HYDROcodone-acetaminophen (Onekama) 5-325 MG tablet 1 tablet, 3 times [...] CT Albuminuria 09/17/2023 Angiomyolipoma Anxiety and depression ([facility]) 07/10/2023 Asthma ([facility]) 07/10/2023 Cellulitis of left lower extremity Cervical cancer ([facility]) 09/17/2023 Chronic pain of both knees 09/17/2023 COPD (chronic obstructive pulmonary disease) [place] 07/10/2023 COPD exacerbation ([facility] 09/17/2023 Decreased functional mobility 09/17/2023 Diabetic neuropathy ([facility] 07/10/2023 Edema 07/10/2023 Elevated sed rate Elevated WBC count GERD (gastroesophageal reflux disease) 09/17/2023 Hyperlipidemia ([facility] 09/17/2023 Hypertension ([facility] 07/10/2023 Insomnia 09/17/2023 Lower extremity edema 09/17/2023 Obstructive sleep apnea 07/10/2023 PAD (peripheral artery disease) ([facility] 09/17/2023 Pancreatitis 09/17/2023 Pneumonia 09/17/2023 Pulmonary hypertension ([facility] 09/17/2023 Radiculopathy, lumbar region 09/17/2023 Tobacco user 09/17/2023 Type 2 diabetes mellitus with complication, with long-term current use of insulin ([facility] 07/10/2023 Unilateral primary osteoarthritis, right [...] List Items Addressed This Visit Diabetic neuropathy ([facility]) Continue with tristan EAST reviewed Fu in 3 months Relevant Medications pregabalin (Lyrica) 300 MG capsule COPD (chronic obstructive pulmonary disease) ([facility]) - Primary Stable at this time, no changes in meds Encouraged smoking cessation Cont with dr Yañez Hypertension ([facility]) Stable on current meds Refill meds Relevant Medications hydrALAZINE (Apresoline) 25 MG tablet lisinopril 20 MG tablet Type 2 diabetes mellitus with complication, with long-term current use of insulin ([facility]) Check blood sugars daily, follow w Endo. [...] 500 MCG tablet documented in this encounter [facility] 11-15-2022 Hospital Discharge instructions Patient Education [...] include: ?8 oz (237 mL) of milk, tvgrafm-yygpbaeqacdq-iucqr milk, and calcium-fortifiedfruit juice. Calcium-fortified means that [...] ?Spinach (cooked), rhubarb, beets, sweet potatoes, and [place] chard. ?Peanuts. ?Potato chips, nigerian fries, and baked potatoes with skin on. ?Nuts and nut products. ?Chocolate. If you regularly take a diuretic medicine, make sure to eat at least 1 or 2 servings of fruits or vegetables that are high in potassium each day. These include: ?Avocado. ?Banana. ?[place], prune, carrot, or tomato juice. ?Baked potato. [...] magnesium, fish oil, or vitamin B6. Take ygab-vwp-qovbood and prescription medicines only as told by [...] provider. Document Revised: 03/06/2022 Document Reviewed: 03/06/2022 [employer] Patient Education 2022 [employer]. Follow Up Care 02/06/2022 11:44:09 With:SARAH VEGA PA-C, URL Address: [address] [place] [address] When: Unknown [facility] 08-24-2022 Note CONSULTATION CONSULTATION DATE: 08/24/2022 [...] We maintain her on pain medication with Onekama 5/325 t.i.d., diclofenac 75 mg b.i.d. Her [...] her at this point. A refill for Onekama 5/325 t.i.d. and diclofenac 75 mg b.i.d. will be sent to the pharmacy. Vitamin compliance and nutrition were discussed and enforced. I did highly encourage her to use exercise bands to increase the strength in her lower extremities. We will see her in three months' time, unless otherwise indicated, and patient agrees. [facility] 05-11-2022 Note CONSULTATION CONSULTATION DATE: 05/11/2022 This [...] 150. Medications include Lyrica 300 mg b.i.d., Onekama 5/325 t.i.d., diclofenac 75 mg b.i.d. and [...] her medications today. We will maintain Lyrica, Onekama and diclofenac at the set dose and frequency. We will follow-up in the clinic in three months' time. The patient is in agreement to this. Vitamin importance and nutrition were discussed. [facility] 04-20-2022 Note CONSULTATION CONSULTATION DATE: 04/20/2022 HISTORY [...] medications include Tylenol, Lyrica 300 mg b.i.d., Onekama 5/325 t.i.d., amitriptyline, diclofenac and duloxetine. Patient's [...] clinic. [facility] 03-08-2022 Evaluation note Encounter Date Diagnosis Assessment [...] to the DANIEL. Thrombocytopenia is unclear etiology. [facility] 08-15-2022 Evaluation note* Encounter Date Diagnosis [...] follow with Dr. Souza and Dr. Arauz. [facility] 08-01-2022 Hospital Discharge instructions Patient Education [...] fried and sweet foods. General instructions Take hkdc-hpx-szgdonw and prescription medicines only as told by [...] 04/21/2010 Document Revised: 10/16/2019 Document Reviewed: 07/11/2018 [employer] Patient Education 2020 [employer]. Follow Up Care 01/05/2022 12:02:03 With:REGLA PHIPPS, Elbert Joya, URL Address: [facility] [address] [place] [address] [phone] When:Within 6 Month(s) Comments:w/ repeat CT A/P [facility] 07-14-2022 NoteCONSULTATION PROCEDURE DATE: 01/19/2022 PRE [...] pattern and the patient tolerated it well. [facility] Signed and Approved by: GIL VALENZUELA . 01/27/2022 14:15:00[facility]07-14-2022 NoteCONSULTATION CONSULTATION DATE: 01/19/2022 This is [...] today. Medications include Lyrica 300 mg b.i.d., Onekama 5/325 t.i.d., diclofenac 75 mg b.i.d. and [...] in three months' time unless otherwise indicated. [facility] Signed and Approved by: GIL VALENZUELA . 01/27/2022 [facility]ments Appointment Date:08/14/2022 09:15:00 AM Scheduled Provider:Elbert ARAUZ MD Location:[facility] Appointment Type:URO Office Visit [facility] evaluation + Plan note Future Appointments Appointment Date:04/22/2024 10:00:00 AM Scheduled Provider:SARAH VEGA PA-C Location:[facility] Appointment Type:URO Office Visit [facility] evaljqynvv note* Diagnosis Type 2 diabetes mellitus with unspecified complications ([facility]) Edema, unspecified [facility]ema [facility] Diagnosis Vaginal yeast infection- Primary Candidiasis of vulva and vagina [facility] Diagnosis Primary hypertension ([facility])- Primary Unspecified essential hypertension Insomnia Insomnia, unspecified Type 2 diabetes mellitus with complication, with long-term current use of insulin (CMS/HCC) Non-seasonal allergic rhinitis, unspecified trigger Type 2 diabetes mellitus with unspecified complications (CMS/HCC) Anxiety and depression ([facility]) Gastro-esophageal reflux disease without esophagitis Edema, unspecified Edema Diabetic polyneuropathy associated with type 2 diabetes mellitus ([facility]) Chronic obstructive pulmonary disease, unspecified (CMS/HCC) Pulmonary emphysema, unspecified emphysema type (CMS/HCC) Bilateral lower extremity edema Tobacco user Tobacco use disorder Hyperpigmentation of skin Other dyschromia [facility] Diagnosis Obstructive sleep apnea- Primary Obstructive sleep apnea (adult) (pediatric) Pulmonary emphysema, unspecified emphysema type (CMS/HCC) Primary hypertension ([facility]) Unspecified essential hypertension Type 2 diabetes mellitus with complication, with long-term current use of insulin ([facility]) Anxiety and depression ([facility]) Bilateral lower extremity edema Pulmonary emphysema, unspecified emphysema type (CMS/HCC)- Primary Primary hypertension ([facility]) Unspecified essential hypertension Class 3 severe obesity with serious comorbidity and body mass index (BMI) of 50.0 to 59.9 in adult, unspecified obesity type ([facility] [place]) Obstructive sleep apnea Obstructive sleep apnea (adult) (pediatric) Pulmonary hypertension ([facility] [place]) Other chronic pulmonary heart diseases Tobacco user Tobacco use disorder Cardiomegaly Primary hypertension ([facility] [place])- Primary Unspecified essential hypertension Gastroesophageal reflux disease, unspecified whether esophagitis present Type 2 diabetes mellitus with complication, with long-term current use of insulin ([facility] [place]) Mixed hyperlipidemia ([facility] [place]) Mixed hyperlipidemia Tobacco user Tobacco use disorder Encounter for screening mammogram for malignant neoplasm of breast Chronic obstructive pulmonary disease, unspecified ([facility] [place]) Other specified chronic obstructive pulmonary disease ([facility] [place]) Anxiety and depression ([facility] [place]) Edema, unspecified Edema Hyperlipidemia, unspecified ([facility] [place]) Diabetic polyneuropathy associated with type 2 diabetes mellitus ([facility] [place]) Gout, unspecified cause, unspecified chronicity, unspecified site Non-seasonal allergic rhinitis, unspecified trigger Bilateral lower extremity edema COPD exacerbation ([facility] [place]) Obstructive chronic bronchitis with exacerbation Pulmonary emphysema, unspecified emphysema type ([facility] [place]) Venous insufficiency Unspecified venous (peripheral) insufficiency Candidiasis of breast COPD exacerbation ([facility] [place])- Primary Obstructive chronic bronchitis with exacerbation Pulmonary hypertension ([facility] [place]) Other chronic pulmonary heart diseases Class 3 severe obesity with serious comorbidity and body mass index (BMI) of 50.0 to 59.9 in adult, unspecified obesity type ([facility] [place]) Encounter for subsequent annual wellness visit (AWV) in Medicare patient- Primary Type 2 diabetes mellitus with unspecified complications ([facility] [place]) Pulmonary emphysema, unspecified emphysema type ([facility] [place] Moderate persistent asthma without complication ([facility] [place]) Primary hypertension ([facility] [place]) Unspecified essential hypertension Type 2 diabetes mellitus with complication, with long-term current use of insulin ([facility] [place]) Class 3 severe obesity with serious comorbidity and body mass index (BMI) of 50.0 to 59.9 in adult, unspecified obesity type ([facility] [place]) Tobacco user Tobacco use disorder Other headache syndrome Malignant neoplasm of cervix uteri, unspecified ([facility] [place]) Other specified disorders of adrenal gland ([facility] [place]) Major depressive disorder, single episode, mild (HCC) ([facility] [place]) Major depressive disorder, single episode, mild 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 exposed ([facility] [place]) Chronic respiratory failure, unspecified whether with hypoxia or hypercapnia ([facility] [place]) Disorder of adrenal gland, unspecified ([facility] [place]) Non-pressure chronic ulcer of other part of right lower leg limited to breakdown of skin ([facility] [place]) Non-recurrent acute suppurative otitis media of left ear without spontaneous rupture of tympanic membrane Primary hypertension ([facility] [place])- Primary Unspecified essential hypertension Insomnia Insomnia, unspecified Type 2 diabetes mellitus with complication, with long-term current use of insulin ([facility] [place]) Non-seasonal allergic rhinitis, unspecified trigger Type 2 diabetes mellitus with unspecified complications ([facility] [place]) Anxiety and depression ([facility] [place]) Gastro-esophageal reflux disease without esophagitis Edema, unspecified Edema Diabetic polyneuropathy associated with type 2 diabetes mellitus ([facility] [place]) Chronic obstructive pulmonary disease, unspecified ([facility] [place]) Pulmonary emphysema, unspecified emphysema type ([facility] [place]) Bilateral lower extremity edema Tobacco user Tobacco use disorder Hyperpigmentation of skin Other dyschromia Type 2 diabetes mellitus with hyperglycemia, with long-term current use of insulin ([facility] [place])- Primary Encounter for dietary consultation Vitamin D deficiency Primary hypertension ([facility] [place]) Unspecified essential hypertension Insulin long-term use ([facility] [place]) Encounter for long-term (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 Hyperlipemia, mixed ([facility] [place]) Mixed hyperlipidemia Microalbuminuria Proteinuria Class 3 severe obesity due to excess calories with serious comorbidity and body mass index (BMI) of 50.0 to 59.9 in adult ([facility] [place]) documented in this encounter [facility]* Diagnosis Hyperlipidemia, unspecified ([facility] [place]) Bilateral lower extremity edema documented in this encounter [facility]* Diagnosis Vitamin D deficiency, unspecified documented in this encounter [facility]Evaluation [facility]* Diagnosis Obstructive sleep apnea- Primary Obstructive sleep apnea (adult) (pediatric) Pulmonary emphysema, unspecified emphysema type ([facility] [place]) Primary hypertension ([facility] [place]) Unspecified essential hypertension Type 2 diabetes mellitus with complication, with long-term current use of insulin ([facility] [place]) Anxiety and depression ([facility] [place]) Bilateral lower extremity edema Pulmonary emphysema, unspecified emphysema type ([facility] [place])- Primary Primary hypertension ([facility] [place]) Unspecified essential hypertension Class 3 severe obesity with serious comorbidity and body mass index (BMI) of 50.0 to 59.9 in adult, unspecified obesity type ([facility] [place]) Obstructive sleep apnea Obstructive sleep apnea (adult) (pediatric) Pulmonary hypertension ([facility] [place]) Other chronic pulmonary heart diseases Tobacco user Tobacco use disorder Cardiomegaly Primary hypertension ([facility] [place])- Primary Unspecified essential hypertension Gastroesophageal reflux disease, unspecified whether esophagitis present Type 2 diabetes mellitus with complication, with long-term current use of insulin ([facility] [place] Mixed hyperlipidemia ([facility] [place]) Mixed hyperlipidemia Tobacco user Tobacco use disorder Encounter for screening mammogram for malignant neoplasm of breast Chronic obstructive pulmonary disease, unspecified ([facility] [place]) Other specified chronic obstructive pulmonary disease ([facility] [place]) Anxiety and depression ([facility] [place]) Edema, unspecified Edema Hyperlipidemia, unspecified ([facility] [place]) Diabetic polyneuropathy associated with type 2 diabetes mellitus ([facility] [place]) Gout, unspecified cause, unspecified chronicity, unspecified site Non-seasonal allergic rhinitis, unspecified trigger Bilateral lower extremity edema COPD exacerbation ([facility] [place]) Obstructive chronic bronchitis with exacerbation Pulmonary emphysema, unspecified emphysema type ([facility] [place]) Venous insufficiency Unspecified venous (peripheral) insufficiency Candidiasis of breast COPD exacerbation ([facility] [place])- Primary Obstructive chronic bronchitis with exacerbation Pulmonary hypertension ([facility] [place]) Other chronic pulmonary heart diseases Class 3 severe obesity with serious comorbidity and body mass index (BMI) of 50.0 to 59.9 in adult, unspecified obesity type ([facility] [place]) Encounter for subsequent annual wellness visit (AWV) in Medicare patient- Primary Type 2 diabetes mellitus with unspecified complications ([facility] [place]) Pulmonary emphysema, unspecified emphysema type ([facility] [place] Moderate persistent asthma without complication ([facility] [place]) Primary hypertension ([facility] [place]) Unspecified essential hypertension Type 2 diabetes mellitus with complication, with long-term current use of insulin ([facility] [place]) Class 3 severe obesity with serious comorbidity and body mass index (BMI) of 50.0 to 59.9 in adult, unspecified obesity type ([facility] [place]) Tobacco user Tobacco use disorder Other headache syndrome Malignant neoplasm of cervix uteri, unspecified ([facility] [place]) Other specified disorders of adrenal gland ([facility] [place]) Major depressive disorder, single episode, mild (HCC) ([facility] [place]) Major depressive disorder, single episode, mild 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 exposed ([facility] [place]) Chronic respiratory failure, unspecified whether with hypoxia or hypercapnia ([facility] [place]) Disorder of adrenal gland, unspecified ([facility] [place]) Non-pressure chronic ulcer of other part of right lower leg limited to breakdown of skin ([facility] [place]) Non-recurrent acute suppurative otitis media of left ear without spontaneous rupture of tympanic membrane Primary hypertension ([facility] [place])- Primary Unspecified essential hypertension Insomnia Insomnia, unspecified Type 2 diabetes mellitus with complication, with long-term current use of insulin ([facility] [place]) Non-seasonal allergic rhinitis, unspecified trigger Type 2 diabetes mellitus with unspecified complications ([facility] [place]) Anxiety and depression ([facility] [place]) Gastro-esophageal reflux disease without esophagitis Edema, unspecified Edema Diabetic polyneuropathy associated with type 2 diabetes mellitus ([facility] [place]) Chronic obstructive pulmonary disease, unspecified ([facility] [place]) Pulmonary emphysema, unspecified emphysema type ([facility] [place]) Bilateral lower extremity edema Tobacco user Tobacco use disorder Hyperpigmentation of skin Other dyschromia Bilateral lower extremity edema documented in this encounter [facility]* Diagnosis Obstructive sleep apnea- Primary Obstructive sleep apnea (adult) (pediatric) Pulmonary emphysema, unspecified emphysema type ([facility] [place]) Primary hypertension ([facility] [place]) Unspecified essential hypertension Type 2 diabetes mellitus with complication, with long-term current use of insulin ([facility] [place]) Anxiety and depression ([facility] [place]) Bilateral lower extremity edema Pulmonary emphysema, unspecified emphysema type ([facility])- Primary Primary hypertension ([facility] [place]) Unspecified essential hypertension Class 3 severe obesity with serious comorbidity and body mass index (BMI) of 50.0 to 59.9 in adult, unspecified obesity type ([facility] [place]) Obstructive sleep apnea Obstructive sleep apnea (adult) (pediatric) Pulmonary hypertension ([facility] [place]) Other chronic pulmonary heart diseases Tobacco user Tobacco use disorder Cardiomegaly Primary hypertension ([facility] [place])- Primary Unspecified essential hypertension Gastroesophageal reflux disease, [...] to 59.9 in adult, unspecified obesity type ([facility] [place]) Encounter for subsequent annual wellness visit (AWV) in Medicare patient- Primary Type 2 diabetes mellitus with unspecified complications (CMS/HCC) Pulmonary emphysema, unspecified emphysema type (CMS/HCC) Moderate persistent asthma without complication (CMS/HCC) Primary hypertension ([facility] [place]) Unspecified essential hypertension Type 2 diabetes mellitus with complication, with long-term current use of insulin ([facility] [place]) Class 3 severe obesity with serious comorbidity [...] complication, with long-term current use of insulin ([facility] [place]) Non-seasonal allergic rhinitis, unspecified trigger Type 2 diabetes mellitus with unspecified complications ([facility] [place]) Anxiety and depression ([facility] [place]) Gastro-esophageal reflux disease without esophagitis Edema, unspecified Edema Diabetic polyneuropathy associated with type 2 diabetes mellitus ([facility] [place]) Chronic obstructive pulmonary disease, unspecified ([facility] [place]) Pulmonary emphysema, unspecified emphysema type ([facility] [place]) Bilateral lower extremity edema Tobacco user Tobacco use disorder Hyperpigmentation of skin Other dyschromia Primary hypertension ([facility] [place])- Primary Unspecified essential hypertension Diabetic polyneuropathy associated with type 2 diabetes mellitus ([facility] [place]) Pulmonary emphysema, unspecified emphysema type ([facility] [place]) Critical limb ischemia of right lower extremity ([facility] [place]) PAD (peripheral artery disease) ([facility] [place]) Unspecified peripheral vascular disease Gastroesophageal reflux disease, unspecified whether esophagitis present Bilateral lower extremity edema Venous ulcer of right leg ([facility] [place]) Type 2 diabetes mellitus with complication, with long-term current use of insulin ([facility] [place] Tobacco user Tobacco use disorder Encounter for smoking cessation counseling Kidney stone Calculus of kidney Adrenal mass 1 cm to 4 cm in diameter ([facility] [place]) Radiculopathy, lumbar region Thoracic or lumbosacral neuritis or radiculitis, unspecified Non-seasonal allergic rhinitis, unspecified trigger Type 2 diabetes mellitus with unspecified complications ([facility] [place]) documented in this encounter [facility] HealthcareEvaluation note* Diagnosis Obstructive sleep apnea- Primary Obstructive sleep apnea (adult) (pediatric) Pulmonary emphysema, unspecified emphysema type ([facility] [place]) Primary hypertension ([facility] [place]) Unspecified essential hypertension Type 2 diabetes mellitus with complication, with long-term current use of insulin ([facility] [place]) Anxiety and depression ([facility] [place]) Bilateral lower extremity edema Pulmonary emphysema, unspecified emphysema type ([facility] [place])- Primary Primary hypertension ([facility] [place]) Unspecified essential hypertension Class 3 severe obesity with serious comorbidity and body mass index (BMI) of 50.0 to 59.9 in adult, unspecified obesity type ([facility] [place]) Obstructive sleep apnea Obstructive sleep apnea (adult) (pediatric) Pulmonary hypertension ([facility] [place]) Other chronic pulmonary heart diseases Tobacco user Tobacco use disorder Cardiomegaly Primary hypertension ([facility] [place])- Primary Unspecified essential hypertension Gastroesophageal reflux disease, [...] to 59.9 in adult, unspecified obesity type ([facility] [place]) Encounter for subsequent annual wellness visit (AWV) in Medicare patient- Primary Type 2 diabetes mellitus with unspecified complications (CMS/HCC) Pulmonary emphysema, unspecified emphysema type (CMS/HCC) Moderate persistent asthma without complication (CMS/HCC) Primary hypertension ([facility] [place]) Unspecified essential hypertension Type 2 diabetes mellitus with complication, with long-term current use of insulin ([facility] [place]) Class 3 severe obesity with serious comorbidity [...] complication, with long-term current use of insulin ([facility] [place]) Non-seasonal allergic rhinitis, unspecified trigger Type 2 diabetes mellitus with unspecified complications ([facility] [place]) Anxiety and depression ([facility] [place]) Gastro-esophageal reflux disease without esophagitis Edema, unspecified Edema Diabetic polyneuropathy associated with type 2 diabetes mellitus ([facility] [place]) Chronic obstructive pulmonary disease, unspecified ([facility] [place]) Pulmonary emphysema, unspecified emphysema type ([facility] [place]) Bilateral lower extremity edema Tobacco user Tobacco use disorder Hyperpigmentation of skin Other dyschromia Primary hypertension ([facility] [place])- Primary Unspecified essential hypertension Diabetic polyneuropathy associated with type 2 diabetes mellitus ([facility] [place]) Pulmonary emphysema, unspecified emphysema type ([facility] [place]) Critical limb ischemia of right lower extremity ([facility] [place]) PAD (peripheral artery disease) ([facility] [place]) Unspecified peripheral vascular disease Gastroesophageal reflux disease, unspecified whether esophagitis present Bilateral lower extremity edema Venous ulcer of right leg ([facility] [place]) Type 2 diabetes mellitus with complication, with long-term current use of insulin ([facility] [place] Tobacco user Tobacco use disorder Encounter for smoking cessation counseling Kidney stone Calculus of kidney Adrenal mass 1 cm to 4 cm in diameter ([facility] [place]) Radiculopathy, lumbar region Thoracic or lumbosacral neuritis or radiculitis, unspecified Non-seasonal allergic rhinitis, unspecified trigger Type 2 diabetes mellitus with unspecified complications ([facility] [place]) Anxiety and depression ([facility] [place])- Primary Morbid (severe) obesity due to excess calories ([facility] [place]) Body mass index (BMI) 50.0-59.9, adult ([facility] [place]) Malignant neoplasm of cervix uteri, unspecified ([facility] [place]) Diabetic polyneuropathy associated with type 2 diabetes mellitus ([facility] [place]) Chronic diastolic heart failure ([facility] [place]) Chronic diastolic heart failure Primary hypertension ([facility] [place] Unspecified essential hypertension 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 ([facility] [place]) Gastroesophageal reflux disease, unspecified whether esophagitis present Bilateral lower extremity edema Type 2 diabetes mellitus with complication, with long-term current use of insulin ([facility] [place]) Tobacco user Tobacco use disorder Mixed hyperlipidemia ([facility] [place]) Mixed hyperlipidemia Gout, unspecified cause, unspecified chronicity, unspecified site Vitamin deficiency Unspecified vitamin deficiency Gastro-esophageal reflux disease without esophagitis Edema, unspecified Edema Hyperlipidemia, unspecified ([facility] [place]) Encounter for smoking cessation counseling Venous ulcer of right leg ([facility] [place]) Antibiotic-induced yeast infection documented in this encounter [facility] HealthcareEvaluation note* Diagnosis Obstructive sleep apnea- Primary Obstructive sleep apnea (adult) (pediatric) Pulmonary emphysema, unspecified emphysema type ([facility] [place]) Primary hypertension ([facility] [place]) Unspecified essential hypertension Type 2 diabetes mellitus with complication, with long-term current use of insulin ([facility] [place]) Anxiety and depression ([facility] [place]) Bilateral lower extremity edema Pulmonary emphysema, unspecified emphysema type ([facility] [place])- Primary Primary hypertension ([facility] [place]) Unspecified essential hypertension Class 3 severe obesity with serious comorbidity and body mass index (BMI) of 50.0 to 59.9 in adult, unspecified obesity type Obstructive sleep apnea Obstructive sleep apnea (adult) (pediatric) Pulmonary hypertension ([facility] [place]) Other chronic pulmonary heart diseases Tobacco user Tobacco use disorder Cardiomegaly Primary hypertension ([facility] [place])- Primary Unspecified essential hypertension Gastroesophageal reflux disease, unspecified whether esophagitis present Type 2 diabetes mellitus with complication, with long-term current use of insulin ([facility] [place]) Mixed hyperlipidemia ([facility] [place]) Mixed hyperlipidemia Tobacco user Tobacco use disorder Encounter for screening mammogram for malignant neoplasm of breast Chronic obstructive pulmonary disease, unspecified Other specified chronic obstructive pulmonary disease Anxiety and depression ([facility] [place]) Edema, unspecified Edema Hyperlipidemia, unspecified ([facility] [place]) Diabetic polyneuropathy associated with type 2 diabetes mellitus ([facility] [place]) Gout, unspecified cause, unspecified chronicity, unspecified site Non-seasonal allergic rhinitis, unspecified trigger Bilateral lower extremity edema COPD exacerbation ([facility] [place]) Obstructive chronic bronchitis with exacerbation Pulmonary emphysema, unspecified emphysema type ([facility] [place]) Venous insufficiency Unspecified venous (peripheral) insufficiency Candidiasis of breast COPD exacerbation ([facility] [place])- Primary Obstructive chronic bronchitis with exacerbation Pulmonary hypertension ([facility] [place]) Other chronic pulmonary heart diseases Class 3 severe obesity with serious comorbidity and body mass index (BMI) of 50.0 to 59.9 in adult, unspecified obesity type Encounter for subsequent annual wellness visit (AWV) in Medicare patient- Primary Type 2 diabetes mellitus with unspecified complications Pulmonary emphysema, unspecified emphysema type ([facility] [place]) Moderate persistent asthma without complication ([facility] [place]) Primary hypertension ([facility] [place]) Unspecified essential hypertension Type 2 diabetes mellitus with complication, with long-term current use of insulin ([facility] [place]) Class 3 severe obesity with serious comorbidity and body mass index (BMI) of 50.0 to 59.9 in adult, unspecified obesity type Tobacco user Tobacco use disorder Other headache syndrome Malignant neoplasm of cervix uteri, unspecified Other specified disorders of adrenal gland Major depressive disorder, single episode, mild (HCC) ([facility] [place]) Major depressive disorder, single episode, mild 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 exposed Chronic respiratory failure, unspecified whether with hypoxia or hypercapnia Disorder of adrenal gland, unspecified Non-pressure chronic ulcer of other part of right lower leg limited to breakdown of skin ([facility] [place]) Non-recurrent acute suppurative otitis media of left ear without spontaneous rupture of tympanic membrane Primary hypertension ([facility] [place])- Primary Unspecified essential hypertension Insomnia Insomnia, unspecified Type 2 diabetes mellitus with complication, with long-term current use of insulin ([facility] [place]) Non-seasonal allergic rhinitis, unspecified trigger Type 2 diabetes mellitus with unspecified complications Anxiety and depression ([facility] [place]) Gastro-esophageal reflux disease without esophagitis Edema, unspecified Edema Diabetic polyneuropathy associated with type 2 diabetes mellitus ([facility] [place]) Chronic obstructive pulmonary disease, unspecified Pulmonary emphysema, unspecified emphysema type ([facility] [place]) Bilateral lower extremity edema Tobacco user Tobacco use disorder Hyperpigmentation of skin Other dyschromia Primary hypertension ([facility] [place])- Primary Unspecified essential hypertension Diabetic polyneuropathy associated with type 2 diabetes mellitus ([facility] [place]) Pulmonary emphysema, unspecified emphysema type ([facility] [place]) Critical limb ischemia of right lower extremity ([facility] [place]) PAD (peripheral artery disease) ([facility] [place]) Unspecified peripheral vascular disease Gastroesophageal reflux disease, unspecified whether esophagitis present Bilateral lower extremity edema Venous ulcer of right leg ([facility] [place]) Type 2 diabetes mellitus with complication, with long-term current use of insulin ([facility] [place]) Tobacco user Tobacco use disorder Encounter for smoking cessation counseling Kidney stone Calculus of kidney Adrenal mass 1 cm to 4 cm in diameter ([facility] [place]) Radiculopathy, lumbar region Thoracic or lumbosacral neuritis or radiculitis, unspecified Non-seasonal allergic rhinitis, unspecified trigger Type 2 diabetes mellitus with unspecified complications Anxiety and depression ([facility] [place])- Primary Morbid (severe) obesity due to excess calories ([facility] [place]) Body mass index (BMI) 50.0-59.9, adult ([facility] [place]) Malignant neoplasm of cervix uteri, unspecified Diabetic polyneuropathy associated with type 2 diabetes mellitus ([facility] [place]) Chronic diastolic heart failure ([facility] [place]) Chronic diastolic heart failure Primary hypertension ([facility] [place]) Unspecified essential hypertension 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 Gastroesophageal reflux disease, unspecified whether esophagitis present Bilateral lower extremity edema Type 2 diabetes mellitus with complication, with long-term current use of insulin ([facility] [place]) Tobacco user Tobacco use disorder Mixed hyperlipidemia ([facility] [place]) Mixed hyperlipidemia Gout, unspecified cause, unspecified chronicity, unspecified site Vitamin deficiency Unspecified vitamin deficiency Gastro-esophageal reflux disease without esophagitis Edema, unspecified Edema Hyperlipidemia, unspecified [place] Encounter for smoking cessation counseling Venous ulcer of right leg ([facility] Antibiotic-induced yeast infection Type 2 diabetes mellitus with hyperglycemia, with long-term current use of insulin [place] Primary Encounter for dietary consultation Vitamin D deficiency Primary hypertension ([facility] Unspecified essential hypertension Insulin long-term use ([facility] Encounter for long-term (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 Hyperlipemia, mixed ([facility] [place]) Mixed hyperlipidemia Microalbuminuria Proteinuria Class 3 severe obesity due to excess calories with serious comorbidity and body mass index (BMI) of 50.0 to 59.9 in adult documented in this encounter [facility] HealthcareEvaluation note* Diagnosis Obstructive sleep apnea- Primary Obstructive sleep apnea (adult) (pediatric) Pulmonary emphysema, unspecified emphysema type ([facility] [place]) Primary hypertension ([facility] [place]) Unspecified essential hypertension Type 2 diabetes mellitus with complication, with long-term current use of insulin [place] [place] Anxiety and depression ([facility] [place] Bilateral lower extremity edema Pulmonary emphysema, unspecified emphysema type ([facility] [place])- Primary Primary hypertension ([facility] [place]) Unspecified essential hypertension Class 3 severe obesity with serious comorbidity and body mass index (BMI) of 50.0 to 59.9 in adult, unspecified obesity type Obstructive sleep apnea Obstructive sleep apnea (adult) (pediatric) Pulmonary hypertension ([facility] [place]) Other chronic pulmonary heart diseases Tobacco user Tobacco use disorder Cardiomegaly Primary hypertension ([facility] [place])- Primary Unspecified essential hypertension Gastroesophageal reflux disease, unspecified whether esophagitis present Type 2 diabetes mellitus with complication, with long-term current use of insulin ([facility] [place]) Mixed hyperlipidemia ([facility] [place]) Mixed hyperlipidemia Tobacco user Tobacco use disorder Encounter for screening mammogram for malignant neoplasm of breast Chronic obstructive pulmonary disease, unspecified Other specified chronic obstructive pulmonary disease Anxiety and depression ([facility] [place]) Edema, unspecified Edema Hyperlipidemia, unspecified ([facility] [place]) Diabetic polyneuropathy associated with type 2 diabetes mellitus ([facility] [place]) Gout, unspecified cause, unspecified chronicity, unspecified site Non-seasonal allergic rhinitis, unspecified trigger Bilateral lower extremity edema COPD exacerbation ([facility] [place]) Obstructive chronic bronchitis with exacerbation Pulmonary emphysema, unspecified emphysema type ([facility] [place]) Venous insufficiency Unspecified venous (peripheral) insufficiency Candidiasis of breast COPD exacerbation ([facility] [place])- Primary Obstructive chronic bronchitis with exacerbation Pulmonary hypertension ([facility] [place]) Other chronic pulmonary heart diseases Class 3 severe obesity with serious comorbidity and body mass index (BMI) of 50.0 to 59.9 in adult, unspecified obesity type Encounter for subsequent annual wellness visit (AWV) in Medicare patient- Primary Type 2 diabetes mellitus with unspecified complications Pulmonary emphysema, unspecified emphysema type ([facility] [place]) Moderate persistent asthma without complication ([facility] [place]) Primary hypertension ([facility] [place]) Unspecified essential hypertension Type 2 diabetes mellitus with complication, with long-term current use of insulin ([facility] [place]) Class 3 severe obesity with serious comorbidity and body mass index (BMI) of 50.0 to 59.9 in adult, unspecified obesity type Tobacco user Tobacco use disorder Other headache syndrome Malignant neoplasm of cervix uteri, unspecified Other specified disorders of adrenal gland Major depressive disorder, single episode, mild (HCC) ([facility] [place]) Major depressive disorder, single episode, mild 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 exposed Chronic respiratory failure, unspecified whether with hypoxia or hypercapnia Disorder of adrenal gland, unspecified Non-pressure chronic ulcer of other part of right lower leg limited to breakdown of skin ([facility] [place]) Non-recurrent acute suppurative otitis media of left ear without spontaneous rupture of tympanic membrane Primary hypertension ([facility] [place])- Primary Unspecified essential hypertension Insomnia Insomnia, unspecified Type 2 diabetes mellitus with complication, with long-term current use of insulin ([facility] [place]) Non-seasonal allergic rhinitis, unspecified trigger Type 2 diabetes mellitus with unspecified complications Anxiety and depression ([facility] [place]) Gastro-esophageal reflux disease without esophagitis Edema, unspecified Edema Diabetic polyneuropathy associated with type 2 diabetes mellitus ([facility] [place]) Chronic obstructive pulmonary disease, unspecified Pulmonary emphysema, unspecified emphysema type ([facility] [place]) Bilateral lower extremity edema Tobacco user Tobacco use disorder Hyperpigmentation of skin Other dyschromia Primary hypertension ([facility] [place])- Primary Unspecified essential hypertension Diabetic polyneuropathy associated with type 2 diabetes mellitus ([facility] [place]) Pulmonary emphysema, unspecified emphysema type ([facility] [place]) Critical limb ischemia of right lower extremity ([facility] [place]) PAD (peripheral artery disease) ([facility] [place]) Unspecified peripheral vascular disease Gastroesophageal reflux disease, unspecified whether esophagitis present Bilateral lower extremity edema Venous ulcer of right leg ([facility] [place]) Type 2 diabetes mellitus with complication, with long-term current use of insulin ([facility] [place]) Tobacco user Tobacco use disorder Encounter for smoking cessation counseling Kidney stone Calculus of kidney Adrenal mass 1 cm to 4 cm in diameter [place] [place] Radiculopathy, lumbar region Thoracic or lumbosacral neuritis or radiculitis, unspecified Non-seasonal allergic rhinitis, unspecified trigger Type 2 diabetes mellitus with unspecified complications Anxiety and depression ([facility] [place])- Primary Morbid (severe) obesity due to excess calories ([facility] [place]) Body mass index (BMI) 50.0-59.9, adult ([facility] [place]) Malignant neoplasm of cervix uteri, unspecified Diabetic polyneuropathy associated with type 2 diabetes mellitus ([facility] [place]) Chronic diastolic heart failure ([facility] [place]) Chronic diastolic heart failure Primary hypertension ([facility] [place]) Unspecified essential hypertension 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 Gastroesophageal reflux disease, unspecified whether esophagitis present Bilateral lower extremity edema Type 2 diabetes mellitus with complication, with long-term current use of insulin ([facility] [place]) Tobacco user Tobacco use disorder Mixed hyperlipidemia ([facility] [place]) Mixed hyperlipidemia Gout, unspecified cause, unspecified chronicity, unspecified site Vitamin deficiency Unspecified vitamin deficiency Gastro-esophageal reflux disease without esophagitis Edema, unspecified Edema Hyperlipidemia, unspecified ([facility] [place]) Encounter for smoking cessation counseling Venous ulcer of right leg [place] [place] Antibiotic-induced yeast infection Chronic obstructive pulmonary disease, unspecified documented in this encounter [facility] HealthcareEvaluation note* Diagnosis Obstructive sleep apnea- Primary Obstructive sleep apnea (adult) (pediatric) Pulmonary emphysema, unspecified emphysema type ([facility] [place]) Primary hypertension ([facility] [place]) Unspecified essential hypertension Type 2 diabetes mellitus with complication, with long-term current use of insulin ([facility] [place]) Anxiety and depression ([facility] [place]) Bilateral lower extremity edema Pulmonary emphysema, unspecified emphysema type ([facility] [place])- Primary Primary hypertension ([facility] [place]) Unspecified essential hypertension Class 3 severe obesity with serious comorbidity and body mass index (BMI) of 50.0 to 59.9 in adult, unspecified obesity type Obstructive sleep apnea Obstructive sleep apnea (adult) (pediatric) Pulmonary hypertension ([facility] [place]) Other chronic pulmonary heart diseases Tobacco user Tobacco use disorder Cardiomegaly Primary hypertension ([facility] [place])- Primary Unspecified essential hypertension Gastroesophageal reflux disease, unspecified whether esophagitis present Type 2 diabetes mellitus with complication, with long-term current use of insulin ([facility] [place]) Mixed hyperlipidemia ([facility] [place]) Mixed hyperlipidemia Tobacco user Tobacco use disorder Encounter for screening mammogram for malignant neoplasm of breast Chronic obstructive pulmonary disease, unspecified Other specified chronic obstructive pulmonary disease Anxiety and depression ([facility] [place]) Edema, unspecified Edema Hyperlipidemia, unspecified ([facility] [place]) Diabetic polyneuropathy associated with type 2 diabetes mellitus ([facility] [place]) Gout, unspecified cause, unspecified chronicity, unspecified site Non-seasonal allergic rhinitis, unspecified trigger Bilateral lower extremity edema COPD exacerbation ([facility] [place]) Obstructive chronic bronchitis with exacerbation Pulmonary emphysema, unspecified emphysema type ([facility] [place]) Venous insufficiency Unspecified venous (peripheral) insufficiency Candidiasis of breast COPD exacerbation ([facility] [place])- Primary Obstructive chronic bronchitis with exacerbation Pulmonary hypertension ([facility] [place]) Other chronic pulmonary heart diseases Class 3 severe obesity with serious comorbidity and body mass index (BMI) of 50.0 to 59.9 in adult, unspecified obesity type Encounter for subsequent annual wellness visit (AWV) in Medicare patient- Primary Type 2 diabetes mellitus with unspecified complications Pulmonary emphysema, unspecified emphysema type ([facility] [place]) Moderate persistent asthma without complication ([facility] [place]) Primary hypertension ([facility] [place]) Unspecified essential hypertension Type 2 diabetes mellitus with complication, with long-term current use of insulin ([facility] [place]) Class 3 severe obesity with serious comorbidity and body mass index (BMI) of 50.0 to 59.9 in adult, unspecified obesity type Tobacco user Tobacco use disorder Other headache syndrome Malignant neoplasm of cervix uteri, unspecified Other specified disorders of adrenal gland Major depressive disorder, single episode, mild (HCC) ([facility] [place]) Major depressive disorder, single episode, mild 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 exposed Chronic respiratory failure, unspecified whether with hypoxia or hypercapnia Disorder of adrenal gland, unspecified Non-pressure chronic ulcer of other part of right lower leg limited to breakdown of skin ([facility] [place]) Non-recurrent acute suppurative otitis media of left ear without spontaneous rupture of tympanic membrane Primary hypertension ([facility] [place] Primary Unspecified essential hypertension Insomnia Insomnia, unspecified Type 2 diabetes mellitus with complication, with long-term current use of insulin ([facility] [place]) Non-seasonal allergic rhinitis, unspecified trigger Type 2 diabetes mellitus with unspecified complications Anxiety and depression ([facility] [place]) Gastro-esophageal reflux disease without esophagitis Edema, unspecified Edema Diabetic polyneuropathy associated with type 2 diabetes mellitus ([facility] [place]) Chronic obstructive pulmonary disease, unspecified Pulmonary emphysema, unspecified emphysema type ([facility] [place]) Bilateral lower extremity edema Tobacco user Tobacco use disorder Hyperpigmentation of skin Other dyschromia Primary hypertension ([facility] [place] Primary Unspecified essential hypertension Diabetic polyneuropathy associated with type 2 diabetes mellitus ([facility] [place]) Pulmonary emphysema, unspecified emphysema type ([facility] [place]) Critical limb ischemia of right lower extremity ([facility] [facility]) PAD (peripheral artery disease) ([facility]) Unspecified peripheral vascular disease Gastroesophageal reflux disease, unspecified whether esophagitis present Bilateral lower extremity edema Venous ulcer of right leg ([facility]) Type 2 diabetes mellitus with complication, with long-term current use of insulin ([facility] [place]) Tobacco user Tobacco use disorder Encounter for smoking cessation counseling Kidney stone Calculus of kidney Adrenal mass 1 cm to 4 cm in diameter ([facility] [place]) Radiculopathy, lumbar region Thoracic or lumbosacral neuritis or radiculitis, unspecified Non-seasonal allergic rhinitis, unspecified trigger Type 2 diabetes mellitus with unspecified complications Anxiety and depression ([facility] [place] Primary Morbid (severe) obesity due to excess calories ([facility] [place]) Body mass index (BMI) 50.0-59.9, adult ([facility] [place]) Malignant neoplasm of cervix uteri, unspecified Diabetic polyneuropathy associated with type 2 diabetes mellitus ([facility] [place]) Chronic diastolic heart failure ([facility] [place]) Chronic diastolic heart failure Primary hypertension ([facility] [place]) Unspecified essential hypertension 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 Gastroesophageal reflux disease, unspecified whether esophagitis present Bilateral lower extremity edema Type 2 diabetes mellitus with complication, with long-term current use of insulin ([facility] [place]) Tobacco user Tobacco use disorder Mixed hyperlipidemia ([facility] [place]) Mixed hyperlipidemia Gout, unspecified cause, unspecified chronicity, unspecified site Vitamin deficiency Unspecified vitamin deficiency Gastro-esophageal reflux disease without esophagitis Edema, unspecified Edema Hyperlipidemia, unspecified ([facility]) Encounter for smoking cessation counseling Venous ulcer of right leg ([facility] [place]) Antibiotic-induced yeast infection Primary hypertension ([facility] [place] Primary Unspecified essential hypertension Diabetic polyneuropathy associated with type 2 diabetes mellitus ([facility] [place]) Chronic diastolic heart failure ([facility] [place]) Chronic diastolic heart failure Bilateral lower extremity edema Morbid (severe) obesity due to excess calories ([facility] [place]) Type 2 diabetes mellitus with complication, with long-term current use of insulin ([facility] [place]) [place] Cigarette nicotine dependence without complication Encounter for screening mammogram for malignant neoplasm of breast Insomnia Insomnia, unspecified Non-seasonal allergic rhinitis, unspecified trigger Type 2 diabetes mellitus with unspecified complications Vitamin D deficiency, unspecified Gastro-esophageal reflux disease without esophagitis PAD (peripheral artery disease) ([facility] [place]) Unspecified peripheral vascular disease Gastroesophageal reflux disease, unspecified whether esophagitis present Venous ulcer of right leg ([facility] [place]) documented in this encounter [facility] HealthcareEvaluation note* Diagnosis Obstructive sleep apnea- Primary Obstructive sleep apnea (adult) (pediatric) Pulmonary emphysema, unspecified emphysema type (HCC) Primary hypertension Unspecified essential hypertension Type 2 diabetes mellitus with complication, with long-term current use of insulin ([facility] [place]) Anxiety and depression Bilateral lower extremity edema Pulmonary emphysema, unspecified emphysema type (HCC)- Primary Primary hypertension Unspecified essential hypertension Class 3 severe obesity with serious comorbidity and body mass index (BMI) of 50.0 to 59.9 in adult, unspecified obesity type ([facility] [place]) Obstructive sleep apnea Obstructive sleep apnea (adult) (pediatric) Pulmonary hypertension (HCC) Other chronic pulmonary heart diseases Tobacco user Tobacco use disorder Cardiomegaly Primary hypertension- Primary Unspecified essential hypertension Gastroesophageal reflux disease, unspecified whether esophagitis present Type 2 diabetes mellitus with complication, with long-term current use of insulin ([facility] [place]) Mixed hyperlipidemia Mixed hyperlipidemia Tobacco user Tobacco [...] to 59.9 in adult, unspecified obesity type ([facility] [place]) Encounter for subsequent annual wellness visit (AWV) in Medicare patient- Primary Type 2 diabetes mellitus with unspecified complications (HCC) Pulmonary emphysema, unspecified emphysema type (HCC) Moderate persistent asthma without complication (HCC) Primary hypertension Unspecified essential hypertension Type 2 diabetes mellitus with complication, with long-term current use of insulin ([facility] [place]) Class 3 severe obesity with serious comorbidity and body mass index (BMI) of 50.0 to 59.9 in adult, unspecified obesity type ([facility] [place]) Tobacco user Tobacco use disorder Other headache [...] associated with type 2 diabetes mellitus ([facility] [place]) Pulmonary emphysema, unspecified emphysema type ([facility] [place]) Critical limb ischemia of right lower extremity ([facility] [place]) PAD (peripheral artery disease) Unspecified peripheral vascular disease Gastroesophageal reflux disease, unspecified whether esophagitis present Bilateral lower extremity edema Venous ulcer of right leg ([facility] [place]) Type 2 diabetes mellitus with complication, with long-term current use of insulin ([facility] [place]) Tobacco user Tobacco use disorder Encounter for smoking cessation counseling Kidney stone Calculus of kidney Adrenal mass 1 cm to 4 cm in diameter ([facility] [place]) Radiculopathy, lumbar region Thoracic or lumbosacral neuritis or radiculitis, unspecified Non-seasonal allergic rhinitis, unspecified trigger Type 2 diabetes mellitus with unspecified complications ([facility] [place]) Anxiety and depression- Primary Morbid (severe) obesity due to excess calories ([facility] [place]) Body mass index (BMI) 50.0-59.9, adult ([facility] [place]) Malignant neoplasm of cervix uteri, unspecified ([facility] [place]) Diabetic polyneuropathy associated with type 2 diabetes mellitus ([facility] [place]) Chronic diastolic heart failure (HCC) Chronic diastolic heart failure Primary hypertension Unspecified essential hypertension 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 ([facility] [place]) Gastroesophageal reflux disease, unspecified whether esophagitis present Bilateral lower extremity edema Type 2 diabetes mellitus with complication, with long-term current use of insulin ([facility] [place]) Tobacco user Tobacco use disorder Mixed hyperlipidemia Mixed hyperlipidemia Gout, unspecified cause, unspecified chronicity, unspecified site Vitamin deficiency Unspecified vitamin deficiency Gastro-esophageal reflux disease without esophagitis Edema, unspecified Edema Hyperlipidemia, unspecified Encounter for smoking cessation counseling Venous ulcer of right leg ([facility] [place]) Antibiotic-induced yeast infection Primary hypertension- Primary Unspecified essential hypertension Diabetic polyneuropathy associated with type 2 diabetes mellitus (HCC) Chronic diastolic heart failure (HCC) Chronic diastolic heart failure Bilateral lower extremity edema Morbid (severe) obesity due to excess calories ([facility] [place]) Type 2 diabetes mellitus with complication, with long-term current use of insulin ([facility] [place]) Anxiety and depression Cigarette nicotine dependence without complication Encounter for screening mammogram for malignant neoplasm of breast Insomnia Insomnia, unspecified Non-seasonal allergic rhinitis, unspecified trigger Type 2 diabetes mellitus with unspecified complications ([facility] [place]) Vitamin D deficiency, unspecified Gastro-esophageal reflux disease without esophagitis PAD (peripheral artery disease) Unspecified peripheral vascular disease Gastroesophageal reflux disease, unspecified whether esophagitis present Venous ulcer of right leg ([facility] [place]) Cellulitis of left lower extremity- Primary COPD exacerbation (HCC) Obstructive chronic bronchitis with exacerbation Primary hypertension Unspecified essential hypertension Pulmonary hypertension (HCC) Other chronic pulmonary heart diseases Morbid (severe) obesity due to excess calories ([facility] [place]) Type 2 diabetes mellitus with complication, with long-term current use of insulin ([facility] [place]) Anxiety and depression Fever, unspecified fever cause Hyperlipidemia, unspecified Tobacco user Tobacco use disorder Encounter for smoking cessation counseling documented in this encounter [facility] HealthcareEvaluation note* Diagnosis Obstructive sleep apnea- Primary Obstructive sleep apnea (adult) (pediatric) Pulmonary emphysema, unspecified emphysema type ([facility] [place]) Primary hypertension ([facility] [place]) Unspecified essential hypertension Type 2 diabetes mellitus with complication, with long-term current use of insulin ([facility] [place]) Anxiety and depression ([facility] [place]) Bilateral lower extremity edema Pulmonary emphysema, unspecified emphysema type ([facility])- Primary Primary hypertension ([facility] [place]) Unspecified essential hypertension Class 3 severe obesity with serious comorbidity and body mass index (BMI) of 50.0 to 59.9 in adult, unspecified obesity type Obstructive sleep apnea Obstructive sleep apnea (adult) (pediatric) Pulmonary hypertension ([facility] [place]) Other chronic pulmonary heart diseases Tobacco user Tobacco use disorder Cardiomegaly Primary hypertension ([facility] [place])- Primary Unspecified essential hypertension Gastroesophageal reflux disease, unspecified whether esophagitis present Type 2 diabetes mellitus with complication, with long-term current use of insulin ([facility] [place]) Mixed hyperlipidemia ([facility] [place]) Mixed hyperlipidemia Tobacco user Tobacco use disorder Encounter for screening mammogram for malignant neoplasm of breast Chronic obstructive pulmonary disease, unspecified Other specified chronic obstructive pulmonary disease Anxiety and depression ([facility] [place]) Edema, unspecified Edema Hyperlipidemia, unspecified ([facility] [place]) Diabetic polyneuropathy associated with type 2 diabetes mellitus ([facility] [place]) Gout, unspecified cause, unspecified chronicity, unspecified site Non-seasonal allergic rhinitis, unspecified trigger Bilateral lower extremity edema COPD exacerbation ([facility] [place]) Obstructive chronic bronchitis with exacerbation Pulmonary emphysema, unspecified emphysema type ([facility]CC) Venous insufficiency Unspecified venous (peripheral) insufficiency Candidiasis of breast COPD exacerbation ([facility] [place])- Primary Obstructive chronic bronchitis with exacerbation Pulmonary hypertension ([facility] [place]) Other chronic pulmonary heart diseases Class 3 severe obesity with serious comorbidity and body mass index (BMI) of 50.0 to 59.9 in adult, unspecified obesity type Encounter for subsequent annual wellness visit (AWV) in Medicare patient- Primary Type 2 diabetes mellitus with unspecified complications Pulmonary emphysema, unspecified emphysema type ([facility] [place]) Moderate persistent asthma without complication ([facility] [place]) Primary hypertension ([facility] [place]) Unspecified essential hypertension Type 2 diabetes mellitus with complication, with long-term current use of insulin ([facility] [place]) Class 3 severe obesity with serious comorbidity and body mass index (BMI) of 50.0 to 59.9 in adult, unspecified obesity type Tobacco user Tobacco use disorder Other headache syndrome Malignant neoplasm of cervix uteri, unspecified Other specified disorders of adrenal gland Major depressive disorder, single episode, mild (HCC) ([facility] [place]) Major depressive disorder, single episode, mild 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 exposed Chronic respiratory failure, unspecified whether with hypoxia or hypercapnia Disorder of adrenal gland, unspecified Non-pressure chronic ulcer of other part of right lower leg limited to breakdown of skin ([facility] [place]) Non-recurrent acute suppurative otitis media of left ear without spontaneous rupture of tympanic membrane Primary hypertension ([facility] [place])- Primary Unspecified essential hypertension Insomnia Insomnia, unspecified Type 2 diabetes mellitus with complication, with long-term current use of insulin ([facility] [place]) Non-seasonal allergic rhinitis, unspecified trigger Type 2 diabetes mellitus with unspecified complications Anxiety and depression ([facility] [place]) Gastro-esophageal reflux disease without esophagitis Edema, unspecified Edema Diabetic polyneuropathy associated with type 2 diabetes mellitus ([facility] [place]) Chronic obstructive pulmonary disease, unspecified Pulmonary emphysema, unspecified emphysema type (CMS/HCC) Bilateral lower extremity edema Tobacco user Tobacco use disorder Hyperpigmentation of skin Other dyschromia Primary hypertension ([facility] [place])- Primary Unspecified essential hypertension Diabetic polyneuropathy associated with type 2 diabetes mellitus ([facility] [place]) Pulmonary emphysema, unspecified emphysema type ([facility]) Critical limb ischemia of right lower extremity ([facility] [place]) PAD (peripheral artery disease) ([facility] [place]) Unspecified peripheral vascular disease Gastroesophageal reflux disease, unspecified whether esophagitis present Bilateral lower extremity edema Venous ulcer of right leg ([facility] [place]) Type 2 diabetes mellitus with complication, with long-term current use of insulin ([facility] [place] Tobacco user Tobacco use disorder Encounter for smoking cessation counseling Kidney stone Calculus of kidney Adrenal mass 1 cm to 4 cm in diameter ([facility] [place]) Radiculopathy, lumbar region Thoracic or lumbosacral neuritis or radiculitis, unspecified Non-seasonal allergic rhinitis, unspecified trigger Type 2 diabetes mellitus with unspecified complications Anxiety and depression ([facility] [place])- Primary Morbid (severe) obesity due to excess calories ([facility] [place]) Body mass index (BMI) 50.0-59.9, adult ([facility] [place]) Malignant neoplasm of cervix uteri, unspecified Diabetic polyneuropathy associated with type 2 diabetes mellitus ([facility] [place]) Chronic diastolic heart failure ([facility] [place]) Chronic diastolic heart failure Primary hypertension ([facility] [place]) Unspecified essential hypertension 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 Gastroesophageal reflux disease, unspecified whether esophagitis present Bilateral lower extremity edema Type 2 diabetes mellitus with complication, with long-term current use of insulin ([facility] [place]) Tobacco user Tobacco use disorder Mixed hyperlipidemia ([facility] [place]) Mixed hyperlipidemia Gout, unspecified cause, unspecified chronicity, unspecified site Vitamin deficiency Unspecified vitamin deficiency Gastro-esophageal reflux disease without esophagitis Edema, unspecified Edema Hyperlipidemia, unspecified ([facility] [place]) Encounter for smoking cessation counseling Venous ulcer of right leg ([facility] [place]) Antibiotic-induced yeast infection Primary hypertension ([facility] [place])- Primary Unspecified essential hypertension Diabetic polyneuropathy associated with type 2 diabetes mellitus ([facility] [place]) Chronic diastolic heart failure ([facility] [place]) Chronic diastolic heart failure Bilateral lower extremity edema Morbid (severe) obesity due to excess calories ([facility] [place]) Type 2 diabetes mellitus with complication, with long-term current use of insulin ([facility] [place]) Anxiety and depression ([facility] [place]) Cigarette nicotine dependence without complication Encounter for screening mammogram for malignant neoplasm of breast Insomnia Insomnia, unspecified Non-seasonal allergic rhinitis, unspecified trigger Type 2 diabetes mellitus with unspecified complications Vitamin D deficiency, unspecified Gastro-esophageal reflux disease without esophagitis PAD (peripheral artery disease) ([facility] [place]) Unspecified peripheral vascular disease Gastroesophageal reflux disease, unspecified whether esophagitis present Venous ulcer of right leg ([facility] [place]) Cellulitis of left lower extremity- Primary COPD exacerbation ([facility] [place]) Obstructive chronic bronchitis with exacerbation Primary hypertension ([facility] [place]) Unspecified essential hypertension Pulmonary hypertension ([facility] [place]) Other chronic pulmonary heart diseases Morbid (severe) obesity due to excess calories (CMS/HCC) Type 2 diabetes mellitus with complication, with long-term current use of insulin (CMS/HCC) Anxiety and depression ([facility] [place]) Fever, unspecified fever cause documented in this [...] to 59.9 in adult, unspecified obesity type ([facility] [place]) Obstructive sleep apnea Obstructive sleep apnea (adult) [...] to 59.9 in adult, unspecified obesity type ([facility] [place]) Encounter for subsequent annual wellness visit (AWV) [...] to 59.9 in adult, unspecified obesity type ([facility] [place]) Tobacco user Tobacco use disorder Other headache syndrome Malignant neoplasm of cervix uteri, unspecified ([facility] [place]) Other specified disorders of adrenal gland ([facility] [place]) Major depressive disorder, single episode, mild Major depressive disorder, single episode, mild 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 exposed ([facility] [place]) Chronic respiratory failure, unspecified whether with hypoxia or hypercapnia ([facility] [place]) Disorder of adrenal gland, unspecified ([facility] [place]) Non-pressure chronic ulcer of other part of right lower leg limited to breakdown of skin ([facility] [place]) Non-recurrent acute suppurative otitis media of left ear without spontaneous rupture of tympanic membrane Primary hypertension- Primary Unspecified essential hypertension Insomnia Insomnia, unspecified Type 2 diabetes mellitus with complication, with long-term current use of insulin ([facility] [place]) Non-seasonal allergic rhinitis, unspecified trigger Type 2 diabetes mellitus with unspecified complications ([facility] [place]) Anxiety and depression Gastro-esophageal reflux disease without esophagitis Edema, unspecified Edema Diabetic polyneuropathy associated with type 2 diabetes mellitus ([facility] [place]) Chronic obstructive pulmonary disease, unspecified ([facility] [place]) Pulmonary emphysema, unspecified emphysema type ([facility] [place]) Bilateral lower extremity edema Tobacco user Tobacco use disorder Hyperpigmentation of skin Other dyschromia Primary hypertension- Primary Unspecified essential hypertension Diabetic polyneuropathy associated with type 2 diabetes mellitus ([facility] [place]) Pulmonary emphysema, unspecified emphysema type ([facility] [place]) Critical limb ischemia of right lower extremity ([facility] [place]) PAD (peripheral artery disease) Unspecified peripheral vascular disease Gastroesophageal reflux disease, unspecified whether esophagitis present Bilateral lower extremity edema Venous ulcer of right leg ([facility] [place]) Type 2 diabetes mellitus with complication, with long-term current use of insulin ([facility] [place]) Tobacco user Tobacco use disorder Encounter for smoking cessation counseling Kidney stone Calculus of kidney Adrenal mass 1 cm to 4 cm in diameter ([facility] [place]) Radiculopathy, lumbar region Thoracic or lumbosacral neuritis or radiculitis, unspecified Non-seasonal allergic rhinitis, unspecified trigger Type 2 diabetes mellitus with unspecified complications ([facility]) Anxiety and depression- Primary Morbid (severe) obesity due to excess calories ([facility]) Body mass index (BMI) 50.0-59.9, adult ([facility]) Malignant neoplasm of cervix uteri, unspecified ([facility]) Diabetic polyneuropathy associated with type 2 diabetes mellitus ([facility]) Chronic diastolic heart failure (HCC) Chronic diastolic [...] Morbid (severe) obesity due to excess calories ([facility] Type 2 diabetes mellitus with complication, with [...] Morbid (severe) obesity due to excess calories ([facility]) Type 2 diabetes mellitus with complication, with [...] associated with type 2 diabetes mellitus ([facility]) Pulmonary emphysema, unspecified emphysema type ([facility]) Moderate persistent asthma without complication (HCC) Insomnia Insomnia, unspecified Non-seasonal allergic rhinitis, unspecified trigger Type 2 diabetes mellitus with unspecified complications (HCC) Anxiety and depression Antibiotic-induced yeast infection Chronic obstructive pulmonary disease, unspecified (HCC) Hyperlipidemia, unspecified Vaginal yeast infection Candidiasis of vulva and vagina Morbid (severe) obesity due to excess calories ([facility]) Type 2 diabetes mellitus with hyperglycemia, with long-term current use of insulin (HCC) documented in this encounter [facility] HealthcareEvaluation note* Diagnosis Obstructive sleep [...] to 59.9 in adult, unspecified obesity type ([facility]) Obstructive sleep apnea Obstructive sleep apnea (adult) [...] to 59.9 in adult, unspecified obesity type ([facility]) Encounter for subsequent annual wellness visit (AWV) [...] to 59.9 in adult, unspecified obesity type ([facility]) Tobacco user Tobacco use disorder Other headache syndrome Malignant neoplasm of cervix uteri, unspecified (HCC) Other specified disorders of adrenal gland ([facility]) Major depressive disorder, single episode, mild Major depressive disorder, single episode, mild 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 exposed ([facility]) Chronic respiratory failure, unspecified whether with hypoxia or hypercapnia ([facility]) Disorder of adrenal gland, unspecified ([facility]) Non-pressure chronic ulcer of other part of right lower leg limited to breakdown of skin ([facility]) Non-recurrent acute suppurative otitis media of left ear without spontaneous rupture of tympanic membrane Primary hypertension- Primary Unspecified essential hypertension Insomnia Insomnia, unspecified Type 2 diabetes mellitus with complication, with long-term current use of insulin ([facility]) Non-seasonal allergic rhinitis, unspecified trigger Type 2 diabetes mellitus with unspecified complications ([facility]) Anxiety and depression Gastro-esophageal reflux disease without esophagitis Edema, unspecified Edema Diabetic polyneuropathy associated with type 2 diabetes mellitus ([facility]) Chronic obstructive pulmonary disease, unspecified ([facility]) Pulmonary emphysema, unspecified emphysema type ([facility]) Bilateral lower extremity edema Tobacco user Tobacco use disorder Hyperpigmentation of skin Other dyschromia Primary hypertension- Primary Unspecified essential hypertension Diabetic polyneuropathy associated with type 2 diabetes mellitus ([facility] [place]) Pulmonary emphysema, unspecified emphysema type ([facility] [place]) Critical limb ischemia of right lower extremity ([facility]) PAD (peripheral artery disease) Unspecified peripheral vascular disease Gastroesophageal reflux disease, unspecified whether esophagitis present Bilateral lower extremity edema Venous ulcer of right leg ([facility]) Type 2 diabetes mellitus with complication, with long-term current use of insulin ([facility] [place]) Tobacco user Tobacco use disorder Encounter for smoking cessation counseling Kidney stone Calculus of kidney Adrenal mass 1 cm to 4 cm in diameter ([facility] [place]) Radiculopathy, lumbar region Thoracic or lumbosacral neuritis or radiculitis, unspecified Non-seasonal allergic rhinitis, unspecified trigger Type 2 diabetes mellitus with unspecified complications ([facility]) Anxiety and depression- Primary Morbid (severe) obesity due to excess calories ([facility]) Body mass index (BMI) 50.0-59.9, adult ([facility]) Malignant neoplasm of cervix uteri, unspecified ([facility]) Diabetic polyneuropathy associated with type 2 diabetes mellitus ([facility]) Chronic diastolic heart failure (HCC) Chronic diastolic [...] Morbid (severe) obesity due to excess calories ([facility] Type 2 diabetes mellitus with complication, with [...] Morbid (severe) obesity due to excess calories ([facility]) Type 2 diabetes mellitus with complication, with [...] Morbid (severe) obesity due to excess calories ([facility]) Encounter for dietary consultation- Primary Type 2 diabetes mellitus with hyperglycemia, with long-term current use of insulin (HCC) Vitamin D deficiency Primary hypertension Unspecified essential hypertension Insulin long-term use ([facility]) Encounter for long-term (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 Hyperlipemia, mixed Mixed hyperlipidemia Microalbuminuria Proteinuria Class 3 severe obesity due to excess calories with serious comorbidity and body mass index (BMI) of 50.0 to 59.9 in adult ([facility]) documented in this encounter [facility] general [...] History sepsis 2010 Hospitalization History [facility] Other Hospital course Narrative No data available for this section [facility] progress note No data available for this section [facility] reason for referral (narrative) , Referral to Dr. 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 Advance Directives and Living Will Power of Freight Booker Summary Purpose Family History No Family History Records FoundNo Family History Records FoundNo Family History Records FoundNo Family History Records Found No data available for this section No Family History Records FoundNo Family History Records Found Additional Source Comments INFORMATION SOURCE (unrecogn ized section and content) DATE CREATED AUTHOR 10/30/2019 [facility] DATE CREATED AUTHOR AUTHOR'S ORGANIZ ATION 09/15/2020 [facility] DATE CREATED AUTHOR AUTHOR'S ORGANIZ ATION 12/19/2022 [facility] DATE CREATED AUTHOR AUTHOR'S ORGANIZ ATION 06/03/2024 [facility] DATE CREATED AUTHOR AUTHOR'S ORGANIZ ATION 01/30/2025 [facility] EPIC DATE CREATED AUTHOR AUTHOR'S ORGANIZ ATION 02/06/2025 [facility] Care Team (unrecognized sect ion and content) Bacon Skinner Relationship Specialty Start Date End Date Ty Amin MD PCP - General Family Medicine 01/05/23 Bacon Skinner Relationship Specialty Start Date End Date Ty Amin MD PCP - General Family Medicine 01/05/23 Bacon Skinner Relationship Specialty Start Date End Date Ty Amin MD [address] [place] [phone] PCP - General Family Medicine 09/20/23 Mckayla Blas NP [address] [place] [address] PCP - [facility] 09/07/23 09/05/90 Mckayla Blas NP [address] [place] [address] Nurse Practitioner Family Medicine 09/20/23 Bacon Skinner Relationship Specialty Start Date End Date Ty Amin MD [address] [place] [phone] PCP - General Family Medicine 09/20/23 Mckayla Blas NP [address] [place] [address] PCP - [facility] 09/07/23 09/05/90 Mckayla Blas NP [address] [place] [address] Nurse Practitioner Family Medicine 09/20/23 Bacon Skinner Relationship Specialty Start Date End Date Ty Amin MD [address] [place] [address] PCP - General Family Medicine 09/20/23 Mckayla Blas NP [address] [place] [address] PCP [facility] 09/07/23 09/05/90 Mckayla Blas NP [address] [place] [address] Nurse Practitioner Family Medicine 09/20/23 Bacon Skinner Relationship Specialty Start Date End Date Ty Amin MD [address] [place] [address] PCP - General Family [facility] 09/20/23 Mckayla Blas NP [address] [place] [address] PCP [facility] 09/07/23 09/05/90 Mckayla Blas NP [address] [place] [address] Nurse Practitioner Family Medicine 09/20/23 Bacon Skinner Relationship Specialty Start Date End Date Ty Amin MD [address] [place] [address] PCP - General Family Medicine 09/20/23 Mckayla Blas NP [address] [place] [address] PCP - [facility] 09/07/23 09/05/90 Mckayla Blas NP [address] [place] [address] Nurse Practitioner Family Medicine 09/20/23 Bacon Skinner Relationship Specialty Start Date End Date Ty Amin MD [address] [place] [address] PCP - General Family Medicine 09/20/23 Mckayla Blas NP [address] [place] [address] [facility] 09/07/23 09/05/90 Mckayla Blas NP [address] [place] [address] Nurse Practitioner Family Medicine 09/20/23 Bacon Skinner Relationship Specialty Start Date End Date Ty Amin MD [address] [place] [address] PCP - General Family Medicine 09/20/23 Mckayla Blas NP [address] [place] [address] [facility] 09/07/23 09/05/90 Mckayla Blas NP [address] [place] [address] Nurse Practitioner Family Medicine 09/20/23 Bacon Skinner Relationship Specialty Start Date End Date Ty Amin MD [address] [place] [address] PCP - General Family Medicine 09/20/23 Mckayla Blas NP [address] [place] [address] PCP [facility] 09/07/23 09/05/90 Mckayla Blas NP [address] [place] [address] Nurse Practitioner Family Medicine 09/20/23 Bacon Skinner Relationship Specialty Start Date End Date Ty Amin MD [address] [place] [address] PCP - General Family [facility] 09/20/23 Mckayla Blas NP [address] [place] [address] PCP [facility] 09/07/23 09/05/90 Mckayla Blas NP [address] [place] [address] Nurse Practitioner Family Medicine 09/20/23 Bacon Skinner Relationship Specialty Start Date End Date Ty Amin MD [address] [place] [address] PCP - General Family Medicine 09/20/23 Mckayla Blas NP [address] [place] [address] PCP - [facility] 09/07/23 09/05/90 Mckayla Blas NP [address] [place] [address] Nurse Practitioner Family Medicine 09/20/23 Bacon Skinner Relationship Specialty Start Date End Date Ty Amin MD [address] [place] [address] PCP - General Family Medicine 09/20/23 Mckayla Blas NP [address] [place] [address] [facility] 09/07/23 09/05/90 Mckayla Blas NP [address] [place] [address] Nurse Practitioner Family Medicine 09/20/23 Bacon Skinner Relationship Specialty Start Date End Date Ty Amin MD [address] [place] [address] PCP - General Family Medicine 09/20/23 Mckayla Blas NP [address] [place] [address] [facility] 09/07/23 09/05/90 Mckayla Blas NP [address] [place] [address] Nurse Practitioner Family Medicine 09/20/23 Bacon Skinner Relationship Specialty Start Date End Date Ty Amin MD [address] [place] [address] PCP - General Family Medicine 09/20/23 Mckayla Blas NP [address] [place] [address] PCP [facility] 09/07/23 09/05/90 Mckayla Blas NP [address] [place] [address] Nurse Practitioner Family Medicine 09/20/23 Bacon Skinner Relationship Specialty Start Date End Date Ty Amin MD [address] [place] [address] PCP - General Family [facility] 09/20/23 Mckayla Blas NP [address] [place] [address] PCP [facility] 09/07/23 09/05/90 Mckayla Blas NP [address] [place] [address] Nurse Practitioner Family Medicine 09/20/23 Bacon Skinner Relationship Specialty Start Date End Date Ty Amin MD [address] [place] [address] PCP - General Family Medicine 09/20/23 Mckayla Blas NP [address] [place] [address] PCP - [facility] 09/07/23 09/05/90 Mckayla Blas NP [address] [place] [address] Nurse Practitioner Family Medicine 09/20/23 Bacon Skinner Relationship Specialty Start Date End Date Ty Amin MD [address] [place] [address] PCP - General Family Medicine 09/20/23 Mckayla Blas NP [address] [place] [address] [facility] 09/07/23 09/05/90 Mckayla Blas NP [address] [place] [address] Nurse Practitioner Family Medicine 09/20/23 Bacon Skinner Relationship Specialty Start Date End Date Ty Amin MD [address] [place] [address]1002 PCP - General Family Medicine 09/20/23 Mckayla Blas NP [address] [place] [address] [facility] 09/07/23 09/05/90 Mckayla Blas NP [address] [place] [address] Nurse Practitioner Family Medicine 09/20/23 Bacon Skinner Relationship Specialty Start Date End Date Ty Amin MD [address] [place] [address]1002 PCP - General Family Medicine 09/20/23 Mckayla Blas NP [address] [place] [address] PCP [facility] 09/07/23 09/05/90 Mckayla Blas NP [address] [place] [address] Nurse Practitioner Family Medicine 09/20/23 Bacon Skinner Relationship Specialty Start Date End Date Ty Amin MD [address] [place] [address] PCP - General Family [facility] 09/20/23 Mckayla Blas NP [address] [place] [address] PCP [facility] 09/07/23 09/05/90 Mckayla Blas NP [address] [place] [address] Nurse Practitioner Family Medicine 09/20/23 Bacon Skinner Relationship Specialty Start Date End Date Ty Amin MD [address] [place] [address]1002 PCP - General Family Medicine 09/20/23 Mckayla Blas NP [address] [place] [address] PCP - [facility] 09/07/23 09/05/90 Mckayla Blas NP [address] [place] [address] Nurse Practitioner Family Medicine 09/20/23 Bacon Skinner Relationship Specialty Start Date End Date Ty Amin MD [address] [place] [address] PCP - General Family Medicine 09/20/23 Mckayla Blas NP [address] [place] [address] Nurse Practitioner Family Medicine 09/20/23 Bacon Skinner Relationship Specialty Start Date End Date Ty Amin MD [address] [place] [address]1002 PCP - General Family Medicine 09/20/23 Mckayla Blas NP [address] [place] [address] Nurse Practitioner Family Medicine 09/20/23 Bacon Skinner Relationship Specialty Start Date End Date Ty Amin MD [address] [place] [address] PCP - General Family Medicine 09/20/23 Mckayla Blas NP [address] [place] [address] Nurse Practitioner Family Medicine 09/20/23 Bacon Skinner Relationship Specialty Start Date End Date Ty Amin MD [address] [place] [address] PCP - General Family Medicine 09/20/23 Mckayla Blas NP [address] [place] [address] Nurse Practitioner Family Medicine 09/20/23 REASON [...] BE BASED ON THE PRIMARY CLINICAL RECORDS. [email or web address] [facility]. provides no warranty or guarantee of the accuracy or completeness of information in this document.
== END 2025-02-20 11:45 | disposition home or self-care (01) ==
LOC: WC 11:44
PROVIDERS: PCP Nurse Practitioner; Visit Provider Physician Assistant
DX: I87.311 Chronic venous hypertension (idiopathic) with ulcer of right lower extremity (principal); L97.812 Non-pressure chronic ulcer of other part of right lower leg with fat layer exposed
CPT/HCPCS: G0463

== ENCOUNTER 2025-02-23 11:05 | Outpatient (OUT) | payer MEDICARE, SELFPAY ==
--- OUTSIDE RECORDS SUMMARY | 2025-02-23 12:50 | XMS_ITS | CCD ---
Author Organization [facility] Care Team Providers Care Kiln Pusher Name Role Phone James Benavidez Primary Care Provider [phone] JAMES BENAVIDEZ Primary Care Unavailable SHENDGE, VITHAL Admitting Unavailable SHENDGE, VITHAL Attending Unavailable AICHHOLZ, MCKAYLA Primary Care Unavailable AICHHOLZ, MCKAYLA Referring Unavailable AICHHOLZ, MCKAYLA J Primary Care Physician Tico, Stephanie Unavailable OLE RAMIREZ Attending Unavailable OLE RAMIREZ Consulting Unavailable AICHHOLZ, DIRECTOR OPERATING ROOM MCKAYLA Primary Care Unavailable OLE RAMIREZ Admitting Unavailable ANTONY SHRESTHA Consulting Unavailable ALONDRA ., UMBERTO Admitting Unavailable ALONDRA ., UMBERTO Attending Unavailable AICHHOLZ, DIRECTOR OPERATING ROOM MCKAYLA Primary Care Unavailable AFSANEH Loera, DR BOLANOS Consulting Unavailable MARYANNE POWER Consulting Unavailable GLENN KERR Consulting Unavailable YOMAIRA KERR Consulting Unavailable HATTIE GOFF Consulting Unavailable ALONDRA ., UMBERTO Consulting Unavailable TICO, STEPHANIE Attending Unavailable TICO, STEPHANIE Consulting Unavailable AICHHOLZ, DIRECTOR OPERATING ROOM MCKAYLA Primary Care Unavailable TICO, STEPHANIE Admitting Unavailable REGLA ., DR DUMONT Admitting Unavailable AICHHOLZ, DIRECTOR OPERATING ROOM MCKAYLA Primary Care Unavailable REGLA ., DR DUMONT Attending Unavailable ARAUZ ., DR DUMONT Consulting Unavailable COLLIN HUERTAS Consulting Unavailable CECILIA KAUFMAN Admitting Unavailable CECILIA KAUFMAN Attending Unavailable AICHHOLZ, DIRECTOR OPERATING ROOM MCKAYLA Primary Care Unavailable RAFAEL GONGORA Attending Unavailable RAFAEL GONGORA Admitting Unavailable AICHHOLZ, DIRECTOR OPERATING ROOM MCKAYLA Primary Care Unavailable AICHHOLZ, DIRECTOR OPERATING ROOM MCKAYLA Admitting Unavailable AICHHOLZ, DIRECTOR OPERATING ROOM MCKAYLA Primary Care Unavailable AICHHOLZ, DIRECTOR OPERATING ROOM MCKAYLA Attending Unavailable AICHHOLZ, DIRECTOR OPERATING ROOM MCKAYLA Consulting Unavailable LAKSHMIPATHY ., NARENDRANATH Attending Anette vailable LAKSHMIPATHY ., NARENDRANATH Consulting Anette vailable LAKSHMIPATHY ., NARENDRANATH Admitting Anette vailable AICHHOLZ, DIRECTOR OPERATING ROOM MCKAYLA Primary Care Unavailable VALENZUELA ., GIL Consulting Unavailable MORTENSEN ., DR CHAPARRO Aguillon Attending Unavailable MORTENSEN ., DR CHAPARRO Aguillon Admitting Unavailable AICHHOLZ, DIRECTOR OPERATING ROOM MCKAYLA Primary Care Unavailable VALENZUELA ., GIL Consulting Unavailable MORTENSEN ., DR CHAPARRO Aguillon Admitting Unavailable AICHHOLZ, DIRECTOR OPERATING ROOM MCKAYLA Primary Care Unavailable MORTENSEN ., DR CHAPARRO Aguillon Attending Unavailable HALKER ., SUBHASH Consulting Unavailable LAKSHMIPATHY ., NARENDRANATH Admitting Anette vailable LAKSHMIPATHY ., NARENDRANATH Attending Anette vailable AICHHOLZ, DIRECTOR OPERATING ROOM MCKAYLA Primary Care Unavailable MORTENSEN ., DR CHAPARRO Aguillon Attending Unavailable MORTENSEN ., DR CHAPARRO Aguillon Admitting Unavailable VALENZUELA ., GIL Consulting Unavailable AICHHOLZ, DIRECTOR OPERATING ROOM MCKAYLA Primary Care Unavailable VALENZUELA ., GIL Consulting Unavailable MORTENSEN ., DR CHAPARRO Aguillon Attending Unavailable MORTENSEN ., DR CHAPARRO Aguillon Admitting Unavailable AICHHOLZ, DIRECTOR OPERATING ROOM MCKAYLA Primary Care Unavailable HATTIE BRODERICK Attending Unavailable HATTIE BRODERICK Admitting Unavailable AICHHOLZ, DIRECTOR OPERATING ROOM MCKAYLA Primary Care Unavailable AICHHOLZ, DIRECTOR OPERATING ROOM MCKAYLA Admitting Unavailable AICHHOLZ, DIRECTOR OPERATING ROOM MCKAYLA Consulting Unavailable AICHHOLZ, DIRECTOR OPERATING ROOM MCKAYLA Primary Care Unavailable AICHHOLZ, DIRECTOR OPERATING ROOM MCKAYLA Attending Unavailable AICHHOLZ, DIRECTOR OPERATING ROOM MCKAYLA Primary Care Unavailable MISC, DR LESLIE Admitting Unavailable MISC, DR LESLIE Attending Unavailable MISC, DR LESLIE Consulting Unavailable DIAB ., MARIANO Admitting Unavailable DIAB ., MARIANO Attending Unavailable DIAB ., MARIANO Consulting Unavailable AICHHOLZ, DIRECTOR OPERATING ROOM MCKAYLA Primary Care Unavailable RASTEGAR, RICCO Consulting Unavailable AICHHOLZ, DIRECTOR OPERATING ROOM MCKAYLA Admitting Unavailable AICHHOLZ, DIRECTOR OPERATING ROOM MCKAYLA Primary Care Unavailable AICHHOLZ, DIRECTOR OPERATING ROOM MCKAYLA Attending Unavailable AICHHOLZ, DIRECTOR OPERATING ROOM MCKAYLA Consulting Unavailable DR PATRICIA VELOZ Consulting Unavailable TAMLYN ., CECILIA Attending Unavailable TAMLYN ., CECILIA Admitting Unavailable DR PATRICIA VELOZ Consulting Unavailable AICHHOLZ, DIRECTOR OPERATING ROOM MCKAYLA Primary Care Unavailable TAMLYN ., CECILIA Consulting Unavailable MORTENSEN ., DR CHAPARRO Aguillon Attending Unavailable FESTUS ., DR CHAPARRO Aguillon Consulting Unavailable FESTUS ., DR CHAPARRO Aguillon Admitting Unavailable AICHHOLZ, DIRECTOR OPERATING ROOM MCKAYLA Primary Care Unavailable HATTIE BRODERICK Attending Unavailable HATTIE BRODERICK Consulting Unavailable HATTIE BRODERICK Admitting Unavailable AICHHOLZ, DIRECTOR OPERATING ROOM MCKAYLA Primary Care Unavailable HATTIE BAUTISTA Unavailable AICHHOLZ, SAYDA MCKAYLA Admitting Unavailable AICHHOLZ, DIRECTOR OPERATING ROOM MCKAYLA Attending Unavailable AICHHOLZ, DIRECTOR OPERATING ROOM MCKAYLA Consulting Unavailable AICHHOLZ, DIRECTOR OPERATING ROOM MCKAYLA Primary Care Unavailable Brennan PHIPPS, Ty Primary Care Provider Brennan PHIPPS, Ty Primary Care Provider Aichholtalia FOREST BOTANY INSTRUCTOR, Mckayla Unavailable Aichholz FOREST BOTANY INSTRUCTOR, Mckayla Unavailable Elbert ARAUZ Attending Unavailable SARAH [...] Medication Allergies] Propensity to adverse reactions (disorder) [facility] Repository Medications Current Medications Medication [...] Start Date: 02/06/22 Status: Ordered HYDROcodone-acet aminophen ([place]) 5-325 MG tablet 1 tablet 3 (three) times a day as needed for severe pain. Active take 1 tablet by vandana twice daily as needed [place] 5-325 MG 1 tablet as needed Orally [...] every week ergocalciferol (Vitamin D2) 1.25 MG (08577 UT) capsule Indications: Vitamin D deficiency, unspecified Take 1 capsule (1.25 mg) by mouth 1 (one) time per week 12 capsule 1 01/16/2025 04/10/2025 Active Start: 10-27-2024 End: 01-19-2025 take 1 capsule by mouth two times weekly ergocalciferol (Vitamin D2) 1.25 MG (76477 UT) capsule Indications: Vitamin D deficiency, unspecified Take 1 capsule (1.25 mg) by mouth 2 (two) times a week 24 capsule 1 10/27/2024 01/19/2025 Active Start: 04-06-2024 End: 10-27-2024 take 1 capsule by mouth every week ergocalciferol (Vitamin D2) 1.25 MG (81317 UT) capsule Indications: Vitamin D deficiency, unspecified [...] 02/06/22 Status: Ordered take 1 tablet by [facility] every twenty-four hours Meloxicam 7.5 MG [...] Other shelter (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 therapy; Translations: [OTH LONGTERM CURRENT DRUG THERAPY] Onset: 12-05-2022 Episodic Other aftercare (1 source) 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 CURRENT USE OF INSULIN] Onset: 12-05-2022 Episodic Other aftercare (20 sources) Long-term current use of inhaled steroid; Translations: [half-way (current) use of inhaled steroids] Onset: 08-27-2024 [...] Range Facility Orders Onlyon 01-30-2025 Orders Only [id number] Mitzi Macias 1970 F Date Provider Department Center 01/30/2025 [id number], HISTORICAL [facility] Family History Problem Relation Age of Onset Heart attack Paternal Grandmother Family Status - Relation Status Age at Mother Father Paternal Grandmother Normal [facility] CA ECHO DOPPLER COMPLETEon 0 01-29-2025 [place] [address] Cardiology Report Signed Patient: MITZI MACIAS MR#: [id number] : 1970 Acct:[id number] Age/Sex: 54 / F ADM Date: 01/29/25 Loc: CARD Attending Dr: AMI ORO APRN Ordering Physician: AMI ORO APRN Date of Service: 01/29/25 Procedure(s): CA echo doppler complete Accession Number(s): [id number] cc: Mckayla Blas FOREST BOTANY INSTRUCTOR; AMI ORO APRN Patient Name: MITZI MACIAS MR#: [id number] : 1970 Exam Date: 01/29/2025 Ordering Doctor[facility]EDURE: CA ECHO DOPPLER [...] HERRERA Signed By: 01/29/251839 DD/ 39 TD/TT: Surgical Clinical Reviewer: [facility] Radiology, Radiologist, MD - 01/29/2025 [place] [address] Cardiology Report Signed Patient: MITZI MACIAS MR#: [id number] : 1970 Acct:[id number] Age/Sex: 54 / F ADM Date: 01/29/25 Loc: CARD Attending Dr: AMI ORO APRN Ordering Physician: AMI ORO APRN Date of Service: 01/29/25 Procedure(s): CA echo doppler complete Accession Number(s): [id number] cc: Mckayla Blas FOREST BOTANY INSTRUCTOR; AMI ORO APRN Patient Name: MITZI MACIAS MR#: [id number] : 1970 Exam Date: 01/29/2025 Ordering Doctor: [...] HERRERA Signed By: 01/29/251839 DD/ 39 TD/TT: Surgical Clinical Reviewer: [facility] Radiology Study observation (narrative) [facility] CA ECHO DOPPLER COMPLETEOrde red By: Radiologist Radiology on 01-29-2025 [facility] Work Phone: Glucose (Bld) [Mass/Vol]on 0 01-29-2025 Glucose Blood, POC 121 mg/dL [facility] Laboratory - Hematology and Cell countson 01-29-2025 HbA1c (Bld) [Mass fraction] 8.4 % [facility] No Panel Informationon 01-29 Interpretation and review of laboratory results Abnormal [facility] Office Visiton 01-06-2025 Follow-up visit [id number] Mitzi Macias 1970 F Date Provider Department Center 01/06/2025 AMI SARABIA CARD [facility] Family History Problem Relation Age of Onset Heart attack Paternal Grandmother Family Status - Relation Status Age at Mother Father Paternal Grandmother Level of Service:48141 NE OFFICE/OUTPATIENT ESTABLISHED MOD MDM 30 MIN Reason for Visit and Comments: Congestive Heart Failure [127] Hypertension [420815] Hyperlipidemia [182] Normal [facility] 36on 10-21-2024 36 Regarding lab results from 10/08/2024: MD Mickie Merritt MA Lipids, ALT AST, and BMP are normal. HbA1c was not performed. Continue current management. LM on patient's VM. Normal [facility] Glucose (Bld) [Mass/Vol]Orde red By: Mica Sauceda on 10-08-2024 Glucose Blood, POC 97 mg/dL [facility] Laboratory - Hematology and Cell countson 10-08-2024 HbA1c (Bld) [Mass fraction] 7.4 % [facility] No Panel InformationOrdered By: Mica Sauceda on 10-08-2024 [facility] TBH UA (CLEAN/CATCH) MICROSC OPIC IF INDICATEon 10-08-2024 BILIRUBIN URINE Negative NEGATIVE [facility] BLOOD URINE Negative NEGATIVE [facility] Clarity (U) CLEAR CLEAR [facility] Color (U) YELLOW YELLOW [facility] GLUCOSE URINE UA Negative NEGATIVE mg/dL [facility] Interpretation and review of laboratory results Abnormal [facility] Ketones Ql (U) Negative NEGATIVE mg/dL [facility] Leukocyte esterase Test strip Ql (U) Negative NEGATIVE [facility] NITRITE URINE Negative NEGATIVE [facility] pH (U) 5.5 [pH] 5.0 - 9.0 [facility] Protein (U) [Mass/Vol] 30 mg/dL Abnormal NEG/TRACE NO [facility] SPECIFIC GRAVITY URINE >=1.030 Abnormal 1.005 - 1.025 [facility] URINE MICROSCOPIC INDICATED YES [facility] UROBILINOGEN URINE 1.0 EU/dL 0.2 - 1.0 EU/dL [facility] ALL CBC WITH AUTO DIFFon BASOPHILS ABSOLUTE AUTO 0.1 [facility] Basophils/100 WBC (Bld) 0.5 % 0.2 - 2.0 % [facility] Eosinophils/100 WBC (Bld) 1.9 % 0.9 - 7.0 % [facility] Erythrocyte distribution width (RBC) [Ratio] 14.6 % 11.0 - 15.0 % [facility] Hematocrit (Bld) [Volume fraction] 50.9 % High 36.0 - 48.0 % [facility] Hemoglobin (Bld) [Mass/Vol] 16.1 g/dL High 12.0 - 16.0 g/dL [facility] IMMATURE GRANULOCYTES ABS AUTO 0.04 High [facility] Immature granulocytes/100 WBC (Bld) 0.3 % 0.0 - 0.5 % [facility] Interpretation and review of laboratory results Abnormal [facility] LYMPHOCYTES ABSOLUTE AUTO 3.2 [facility] Lymphocytes/100 WBC (Bld) 25.1 % 20.5 - 60.0 % [facility] MCH (RBC) [Entitic mass] 29.2 pg 26.7 - 34.0 pg [facility] MCHC (RBC) [Mass/Vol] 31.6 g/dL 29.9 - 35.2 g/dL [facility] MCV (RBC) [Entitic vol] 92.2 fL 81.0 - 99.0 fL [facility] MONOCYTES ABSOLUTE AUTO 0.7 [facility] Monocytes/100 WBC (Bld) 5.2 % 1.7 - 12.0 % [facility] NEUTROPHILS ABSOLUTE AUTO 8.6 High [facility] Neutrophils/100 WBC (Bld) 67 % 43.0 - 75.0 % [facility] Platelet mean volume (Bld) [Entitic vol] 12.8 fL 9.5 - 13.5 fL [facility] EO # 0.2 [facility] PLT 122 Low [facility] RBC 5.52 High [facility] WBC 12.8 High [facility] Office Visiton 08-08-2024 Follow-up visit [id number] Mitzi Macias 1970 F Date Provider Department Center 08/08/2024 [id number] BRIDGES [facility] Family History Problem Relation Age of Onset Heart attack Paternal Grandmother Family Status - Relation Status Age at Paternal Grandmother Level of Service:64652 NE OFFICE/OUTPATIENT ESTABLISHED MOD MDM 30 MIN Reason for Visit and Comments: Congestive Heart Failure [127] - Denies chest pain, SOB, and palpitations. Hypertension [293967] Hyperlipidemia [182] LVH [Other] Edema [[id number]] - Denies worsening edema. She sees wound care for RLE ulcer. She was seeing the vein specialists here [facility] but they are moving to [place] in a few weeks. Normal [facility] Glucose (Bld) [Mass/Vol]Orde red By: Mica Sauceda on 05-27-2024 Glucose Blood, POC 158 mg/dL [facility] Laboratory - Hematology and Cell countson 05-27-2024 HbA1c (Bld) [Mass fraction] 9.2 % [facility] No Panel InformationOrdered By: Mica Sauceda on 05-27-2024 [facility] CREATININEon 05-12-2024 Creatinine [Mass/Vol] 0.92 mg/dL 0.55 - 1.02 mg/dL [facility] GFR/1.73 sq M.predicted CKD-EPI (S/P/Bld) [Vol rate/Area] >60 >=60 mL/min/1.73m 2 [facility] EGFR-NON AF CENTRAL AFRICAN >60 >=60 mL/min/1.73m 2 [facility] CBC AUTO DIFFon 12-06-2022 BASO # 0.0 103/ul Normal 0.0-0.1 [facility] Comment on above: Performed By: #### C BC #### [facility] [address] [address] [address] Ashlie Hills Basophils/100 WBC (Bld) 0.1 % Critically low 0.2-2.0 [facility] Comment on above: Performed By: #### C BC #### [facility] [address] [address] [address] Ashlie Hills EO # 0.0 103/ul Normal 0.0-0.7 [facility] Comment on above: Performed By: #### C BC #### [facility] [address] [address] [address] Ashlie Hills Eosinophils/100 WBC (Bld) 0.0 % Critically low 0.9-7.0 [facility] Comment on above: Performed By: #### C BC #### [facility] [address] [place] [address] Dr. Ashlie Hills Erythrocyte distribution width (RBC) [Ratio] 14.9 % Normal 11.0-15.0 [facility] Comment on above: Performed By: #### C BC #### [facility] [address] [place] [address] Dr. Ashlie Hills Hematocrit (Bld) [Volume fraction] 46.2 % Normal 36.0-48.0 [facility] Comment on above: Performed By: #### C BC #### [facility] [address] [place] [address] Dr. Ashlie Hills Hemoglobin (Bld) [Mass/Vol] 14.7 g/dL Normal 12.0-16.0 [facility] Comment on above: Performed By: #### C BC #### [facility] [address] [address] [address] Ashlie Hills IG # 0.06 10e3/ul Critically high 0.00-0.03 [facility] Comment on above: Performed By: #### C BC #### [facility] [address] [place] [address] Dr. Ashlie Hills IG % 0.4 % Normal 0.0-0.5 [facility] Comment on above: Performed By: #### C BC #### [facility] [address] [place] [address] Dr. Ashlie Hills LYMPH # 1.3 103/ul Normal 1.2-3.8 [facility] Comment on above: Performed By: #### C BC #### [facility] [address] [place] [address] Dr. Ashlie Hills Lymphocytes/100 WBC (Bld) 9.4 % Critically low 20.5-60.0 [facility] Comment on above: Performed By: #### C BC #### [facility] [address] [place] [address] Dr. Ashlie Hills MANUAL DIFF REQ NO Normal [facility] Comment on above: Performed By: #### C BC #### [facility] [address] [place] [address] Dr. Ashlie Hills MCH (RBC) [Entitic mass] 28.4 pg Normal 26.7-34.0 [facility] Comment on above: Performed By: #### C BC #### [facility] [address] [place] [address] Dr. Ashlie Hills MCHC (RBC) [Mass/Vol] 31.8 g/dL Normal 29.9-35.2 [facility] Comment on above: Performed By: #### C BC #### [facility] [address] [place] [address] Dr. Ashlie Hills MCV (RBC) [Entitic vol] 89.4 fL Normal 81.0-99.0 [facility] Comment on above: Performed By: #### C BC #### [facility] [address] [place] [address] Dr. Ashlie Hills MONO # 0.5 103/ul Normal 0.3-0.8 [facility] Comment on above: Performed By: #### C BC #### [facility] [address] [place] [address] Dr. Ashlie Hills Monocytes/100 WBC (Bld) 3.4 % Normal 1.7-12.0 [facility] Comment on above: Performed By: #### C BC #### [facility] [address] [place] [address] Dr. Ashlie Hills NEUT # 11.8 103/ul Critically high 1.4-6.5 [facility] Comment on above: Performed By: #### C BC #### [facility] [address] [place] [address] Dr. Ashlie Hills Neutrophils/100 WBC (Bld) 86.7 % Critically high 43.0-75.0 [facility] Comment on above: Performed By: #### C BC #### [facility] [address] [place] [address] Dr. Ashlie Hills Platelet mean volume (Bld) [Entitic vol] 12.6 fL Normal 9.5-13.5 [facility] Comment on above: Performed By: #### C BC #### [facility] [address] [place] [address] Dr. Ashlie Hills PLT 133 103/ul Critically low 150-450 [facility] Comment on above: Performed By: #### C BC #### [facility] [address] [place] [address] Dr. Ashlie Hills RBC 5.17 106/ul Normal 4.20-5.40 [facility] Comment on above: Performed By: #### C BC #### [facility] [address] [place] [address] Dr. Ashlie Hills WBC 13.6 103/ul Critically high 4.0-11.0 [facility] Comment on above: Performed By: #### C BC #### [facility] [address] [place] [address] Dr. Ashlie Hills MAGNESIUMon 12-06-2022 Magnesium [Mass/Vol] 2.2 mg/dL Normal 1.8-2.4 [facility] Comment on above: Performed By: #### I NFLUAB #### [facility] [address] [place] [address] Dr. Ashlie Hills POINT OF CARE GLUCOSEon - Glucose [Mass/Vol] 340 mg/dL Critically high 74-106 [facility] Comment on above: Performed By: #### P OCGLUC #### [facility] [address] [address] [address] Ashlie Hills Glucose [Mass/Vol] 276 mg/dL Critically high 74-106 [facility] Comment on above: Performed By: #### C BC #### [facility] [address] [address] [address] Ashlie Hills Glucose [Mass/Vol] 333 mg/dL Critically high 74-106 [facility] Comment on above: Performed By: #### C BC #### [facility] [address] [address] [address] Ashlie Hills PROF CHEM 8 (BAS METB)on Anion gap [Moles/Vol] 10.9 mmol/L Normal [facility] Comment on above: Performed By: #### I NFLUAB #### [facility] [address] [place] [address] Dr. Ashlie Hills Calcium [Mass/Vol] 9.3 mg/dL Normal 8.5-10.1 [facility] Comment on above: Performed By: #### I NFLUAB #### [facility] [address] [address] [address] Ashlie Hills Chloride [Moles/Vol] 103 mmol/L Normal 98-107 [facility] Comment on above: Performed By: #### I NFLUAB #### [facility] [address] [place] [address] Dr. Ashlie Hills CO2 [Moles/Vol] 31.2 mmol/L Normal 21.0-32.0 [facility] Comment on above: Performed By: #### I NFLUAB #### [facility] [address] [address] [address] Ashlie Hills Creatinine [Mass/Vol] 0.96 mg/dL Normal 0.55-1.02 [facility] Comment on above: Performed By: #### I NFLUAB #### [facility] [address] [address] [address] Ashlie Hills EGFR-AF CENTRAL AFRICAN >60 Normal >=60 [facility] Comment on above: Performed By: #### I NFLUAB #### [facility] [address] [address] [address] Ashlie Hills EGFR-NON AF CENTRAL AFRICAN >60 Normal >=60 [facility] Comment on above: Performed By: #### I NFLUAB #### [facility] [address] [address] [address] Ashlie Hills Glucose [Mass/Vol] 288 mg/dL Critically high 74-106 [facility] Comment on above: Performed By: #### I NFLUAB #### [facility] [address] [address] [address] Ashlie Hills Potassium [Moles/Vol] 5.1 mmol/L Normal 3.5-5.1 [facility] Comment on above: Performed By: #### I NFLUAB #### [facility] [address] [place] [address] Dr. Ashlie Hills Sodium [Moles/Vol] 140 mmol/L Normal 136-145 [facility] Comment on above: Performed By: #### I NFLUAB #### [facility] [address] [place] [address] Dr. Ashlie Hills Urea nitrogen [Mass/Vol] 30.0 mg/dL Critically high 7.0-18.0 [facility] Comment on above: Performed By: #### I NFLUAB #### [facility] [address] [place] [address] Dr. Ashlie Hills Urea nitrogen/Creatinine [Mass ratio] 31.2 mg/mg Normal [facility] Comment on above: Performed By: #### I NFLUAB #### [facility] [address] [place] [address] Dr. Ashlie Hills CBC AUTO DIFFon 12-05-2022 BASO # 0.0 103/ul Normal 0.0-0.1 [facility] Comment on above: Performed By: #### C BC #### [facility] [address] [place] [address] Dr. Ashlie Hills Basophils/100 WBC (Bld) 0.4 % Normal 0.2-2.0 [facility] Comment on above: Performed By: #### C BC #### [facility] [address] [address] [address] Ashlie Hills EO # 0.0 103/ul Normal 0.0-0.7 [facility] Comment on above: Performed By: #### C BC #### [facility] [address] [place] [address] Dr. Ashlie Hills Eosinophils/100 WBC (Bld) 0.0 % Critically low 0.9-7.0 [facility] Comment on above: Performed By: #### C BC #### [facility] [address] [place] [address] Dr. Ashlie Hills Erythrocyte distribution width (RBC) [Ratio] 14.8 % Normal 11.0-15.0 [facility] Comment on above: Performed By: #### C BC #### [facility] [address] [place] [address] Dr. Ashlie Hills Hematocrit (Bld) [Volume fraction] 49.9 % Critically high 36.0-48.0 [facility] Comment on above: Performed By: #### C BC #### [facility] [address] [place] [address] Dr. Ashlie Hills Hemoglobin (Bld) [Mass/Vol] 15.7 g/dL Normal 12.0-16.0 [facility] Comment on above: Performed By: #### C BC #### [facility] [address] [place] [address] Dr. Ashlie Hills IG # 0.04 10e3/ul Critically high 0.00-0.03 [facility] Comment on above: Performed By: #### C BC #### [facility] [address] [place] [address] Dr. Ashlie Hills IG % 0.5 % Normal 0.0-0.5 [facility] Comment on above: Performed By: #### C BC #### [facility] [address] [place] [address] Dr. Ashlie Hills LYMPH # 1.1 103/ul Critically low 1.2-3.8 [facility] Comment on above: Performed By: #### C BC #### [facility] [address] [address] [address] Ashlie Hills Lymphocytes/100 WBC (Bld) 12.7 % Critically low 20.5-60.0 [facility] Comment on above: Performed By: #### C BC #### [facility] [address] [address] [address] Ashlie Hills MANUAL DIFF REQ NO Normal [facility] Comment on above: Performed By: #### C BC #### [facility] [address] [address] [address] Ashlie Hills MCH (RBC) [Entitic mass] 28.1 pg Normal 26.7-34.0 [facility] Comment on above: Performed By: #### C BC #### [facility] [address] [place] [address] Dr. Ashlie Hills MCHC (RBC) [Mass/Vol] 31.5 g/dL Normal 29.9-35.2 [facility] Comment on above: Performed By: #### C BC #### [facility] [address] [place] [address] Dr. Ashlie Hills MCV (RBC) [Entitic vol] 89.3 fL Normal 81.0-99.0 [facility] Comment on above: Performed By: #### C BC #### [facility] [address] [place] [address] Dr. Ashlie Hills MONO # 0.1 103/ul Critically low 0.3-0.8 [facility] Comment on above: Performed By: #### C BC #### [facility] [address] [place] [address] Dr. Ashlie Hills Monocytes/100 WBC (Bld) 1.3 % Critically low 1.7-12.0 [facility] Comment on above: Performed By: #### C BC #### [facility] [address] [place] [address] Dr. Ashlie Hills NEUT # 7.2 103/ul Critically high 1.4-6.5 [facility] Comment on above: Performed By: #### C BC #### [facility] [address] [address] [address] Ashlie Hills Neutrophils/100 WBC (Bld) 85.1 % Critically high 43.0-75.0 [facility] Comment on above: Performed By: #### C BC #### [facility] [address] [address] [address] Ashlie Hills Platelet mean volume (Bld) [Entitic vol] 12.2 fL Normal 9.5-13.5 [facility] Comment on above: Performed By: #### C BC #### [facility] [address] [address] [address] Ashlie Hills PLT 116 103/ul Critically low 150-450 [facility] Comment on above: Performed By: #### C BC #### [facility] [address] [place] [address] Dr. Ashlie Hills RBC 5.59 106/ul Critically high 4.20-5.40 [facility] Comment on above: Performed By: #### C BC #### [facility] [address] [address] [address] Ashlie Hills WBC 8.5 103/ul Normal 4.0-11.0 [facility] Comment on above: Performed By: #### C BC #### [facility] [address] [place] [address] Dr. Ashlie Hills CTA CHEST WO W [...] by: HATTIE GOFF Date: 2022-12-05 01:52 Normal [facility] MAGNESIUMon 12-05-2022 Magnesium [Mass/Vol] 2.1 mg/dL Normal 1.8-2.4 [facility] Comment on above: Performed By: #### P OCGLUC #### [facility] [address] [address] [address] Ashlie Hills POINT OF CARE GLUCOSEon 11-08 Glucose [Mass/Vol] 293 mg/dL Critically high [address] [place] [address] Comment on above: Performed By: #### P OCGLUC #### [facility] [address] [address] [address] Ashlie Hills Glucose [Mass/Vol] 269 mg/dL Critically high [facility] Comment on above: Performed By: #### P OCGLUC #### [facility] [address] [address] [address] Ashlie Hills Glucose [Mass/Vol] 223 mg/dL Critically high [address] [place] [address] Comment on above: Performed By: #### C VDAGS #### [facility] [address] [address] [address] Ashlie Hills PROF CHEM 8 (BAS METB)on Anion gap [Moles/Vol] 11.6 mmol/L Normal [facility] Comment on above: Performed By: #### P OCGLUC #### [facility] [address] [address] [address] Ashlie Hills Calcium [Mass/Vol] 9.2 mg/dL Normal 8.5-10.1 [facility] Comment on above: Performed By: #### P OCGLUC #### [facility] [address] [address] [address] Ashlie Hills Chloride [Moles/Vol] 102 mmol/L Normal 98-107 [facility] Comment on above: Performed By: #### P OCGLUC #### [facility] [address] [address] [address] Ashlie Hills CO2 [Moles/Vol] 28.7 mmol/L Normal 21.0-32.0 [facility] Comment on above: Performed By: #### P OCGLUC #### [facility] [address] [address] [address] Ashlie Hills Creatinine [Mass/Vol] 1.04 mg/dL Critically high 0.55-1.02 [facility] Comment on above: Performed By: #### P OCGLUC #### [facility] [address] [address] [address] Ashlie Hills EGFR-AF CENTRAL AFRICAN >60 Normal >=60 [facility] Comment on above: Performed By: #### P OCGLUC #### [facility] [address] [address] [address] Ashlie Hills EGFR-NON AF CENTRAL AFRICAN 56 mL/min/1.73m2 Critically low >=60 [facility] Comment on above: Performed By: #### P OCGLUC #### [facility] [address] [address] [address] Ashlie Hills Glucose [Mass/Vol] 231 mg/dL Critically high 74-106 [facility] Comment on above: Performed By: #### P OCGLUC #### [facility] [address] [address] [address] Ashlie Hills Potassium [Moles/Vol] 4.3 mmol/L Normal 3.5-5.1 [facility] Comment on above: Performed By: #### P OCGLUC #### [facility] [address] [place] [address] Dr. Ashlie Hills Sodium [Moles/Vol] 138 mmol/L Normal 136-145 [facility] Comment on above: Performed By: #### P OCGLUC #### [facility] [address] [place] [address] Dr. Ashlie Hills Urea nitrogen [Mass/Vol] 17.0 mg/dL Normal 7.0-18.0 [facility] Comment on above: Performed By: #### P OCGLUC #### [facility] [address] [place] [address] Dr. Ashlie Hills Urea nitrogen/Creatinine [Mass ratio] 16.3 mg/mg Normal [facility] Comment on above: Performed By: #### P OCGLUC #### [facility] [address] [place] [address] Dr. Ashlie Hills RESPIRATORY PANEL PLUSon Adenovirus Not detected Normal NOT DETECTED [facility] Comment on above: Performed By: #### C VDAGS #### [facility] [address] [place] [address] Dr. Ashlie Shaffer. Parapertusis Not detected Normal NOT DETECTED [facility] Comment on above: Performed By: #### C VDAGS #### [facility] [address] [place] [address] Dr. Ashlie Shaffer. Pertussis Not detected Normal NOT DETECTED [facility] Comment on above: Performed By: #### C VDAGS #### [facility] [address] [place] [address] Dr. Ashlie Hills Chlamydia Pneumoniae Not detected Normal NOT DETECTED [facility] Comment on above: Performed By: #### C VDAGS #### [facility] [address] [place] [address] Dr. Ashlie Hills Coronavirus 229E Not detected Normal NOT DETECTED [facility] Comment on above: Performed By: #### C VDAGS #### [facility] [address] [place] [address] Dr. Ashlie Hills Coronavirus HKU1 Not detected Normal NOT DETECTED [facility] Comment on above: Performed By: #### C VDAGS #### [facility] [address] [place] [address] Dr. Ashlie Hills Coronavirus NL63 Not detected Normal NOT DETECTED [facility] Comment on above: Performed By: #### C VDAGS #### [facility] [address] [address] [address] Ashlie Hills Coronavirus OC43 Not detected Normal NOT DETECTED [facility] Comment on above: Performed By: #### C VDAGS #### [facility] [address] [address] [address] Ashlie Hills Influenza A H1 Not detected Normal NOT DETECTED [facility] Comment on above: Performed By: #### C VDAGS #### [facility] [address] [place] [address] Dr. Ashlie Hills Influenza A H1 2009 Not detected Normal NOT DETECTED [facility] Comment on above: Performed By: #### C VDAGS #### [facility] [address] [place] [address] Dr. Ashlie Hills Influenza A H3 Not detected Normal NOT DETECTED [facility] Comment on above: Performed By: #### C VDAGS #### [facility] [address] [place] [address] Dr. Ashlie Hills Influenza B Not detected Normal NOT DETECTED [facility] Comment on above: Performed By: #### C VDAGS #### [facility] [address] [place] [address] Dr. Ashlie Hills Metapneumovirus Not detected Normal NOT DETECTED [facility] Comment on above: Performed By: #### C VDAGS #### [facility] [address] [place] [address] Dr. Ashlie Hills Mycoplas. Pneumoniae Not detected Normal NOT DETECTED [facility] Comment on above: Performed By: #### C VDAGS #### [facility] [address] [address] [address] Ashlie Hills Parainfluenza 1 Not detected Normal NOT DETECTED [facility] Comment on above: Performed By: #### C VDAGS #### [facility] [address] [place] [address] Dr. Ashlie Hills Parainfluenza 2 Not detected Normal NOT DETECTED [facility] Comment on above: Performed By: #### C VDAGS #### [facility] [address] [place] [address] Dr. Ashlie Hills Parainfluenza 3 Detected Abnormal NOT DETECTED [facility] Comment on above: Performed By: #### C VDAGS #### [facility] [address] [place] [address] Dr. Ashlie Hills Parainfluenza 4 Not detected Normal NOT DETECTED [facility] Comment on above: Performed By: #### C VDAGS #### [facility] [address] [place] [address] Dr. Ashlie Hills Rhino/Enterovirus Not detected Normal NOT DETECTED [facility] Comment on above: Performed By: #### C VDAGS #### [facility] [address] [place] [address] Dr. Ashlie Hills RP2 Header 1 RESPIRATORY PANEL: VIRUSES Normal [facility] Comment on above: Performed By: #### C VDAGS #### [facility] [address] [place] [address] Dr. Ashlie Hills RP2 Header 2 RESPIRATORY PANEL: BACTERIA Normal [facility] Comment on above: Performed By: #### C VDAGS #### [facility] [address] [place] [address] Dr. Ashlie Hills RSV Not detected Normal NOT DETECTED [facility] Comment on above: Performed By: #### C VDAGS #### [facility] [address] [place] [address] Dr. Ashlie Hills SARS-CoV-2 (COVID-19) RNA MADDY+probe Ql (Unsp spec) Not detected Normal NOT DETECTED [facility] Comment on above: Performed By: #### C VDAGS #### [facility] [address] [place] [address] Dr. Ashlie Hills XR CHEST 1 Von [...] by: MARYANNE POWER Date: 2022-12-04 22:23 Normal [facility] BLOOD GASES BTYon 12-04-2022 02 MODE ROOM AIR Normal [facility] Comment on above: Performed By: #### C BC #### [facility] [address] [place] [address] Dr. Ashlie Hills ALLENS TEST Positive [facility] Comment on above: Performed By: #### C BC #### [facility] [address] [place] [address] Dr. Ashlie Hills Base excess Calc (Bld) [Moles/Vol] 5.4 mmol/L Critically high -2.0-2.0 [facility] Comment on above: Performed By: #### C BC #### [facility] [address] [place] [address] Dr. Ashlie Hills BIPAP PRESSURE Normal [facility] Comment on above: Performed By: #### C BC #### [facility] [address] [place] [address] Dr. Ashlie Hills CPAP [facility] Comment on above: Performed By: #### C BC #### [facility] [address] [place] [address] Dr. Ashlie Hills FIO2 [facility] Comment on above: Performed By: #### C BC #### [facility] [address] [place] [address] Dr. Ashlie Hills HCO3 (Bld) [Moles/Vol] 30.8 mmol/L Critically high 22.0-26 .0 [facility] Comment on above: Performed By: #### C BC #### [facility] [address] [place] [address] Dr[facility] on above: Performed By: #### C BC #### [facility] [address] [address] [address] Ashlie Hills MINUTE VOLUME Normal [facility] Comment on above: Performed By: #### C BC #### [facility] [address] [place] [address] Dr. Ashlie Hills Oxygen (Bld) [Partial pressure] 46.3 mm[Hg] Critically low 80.0-100.0 [facility] Comment on above: Performed By: #### C BC #### [facility] [address] [place] [address] Dr. Ashlie Hills Oxygen saturation in Blood 83.9 % Critically low 95.0-100.0 [facility] Comment on above: Performed By: #### C BC #### [facility] [address] [place] [address] Dr. Ashlie Hills PCO2 54.2 mmHg Critically high 35.0-45.0 [facility] Comment on above: Performed By: #### C BC #### [facility] [address] [place] [address] Dr. Ashlie Hills PEEP [facility] Comment on above: Performed By: #### C BC #### [facility] [address] [place] [address] Dr. Ashlie Hills pH (Bld) 7.363 [pH] Normal 7.350-7.450 [facility] Comment on above: Performed By: #### C BC #### [facility] [address] [place] [address] Dr. Ashlie Hills PIP [facility] Comment on above: Performed By: #### C BC #### [facility] [address] [place] [address] Dr. Ashlie Hills PS [facility] Comment on above: Performed By: #### C BC #### [facility] [address] [place] [address] Dr. Ashlie Hills PUNCTURE SITE LR [facility] Comment on above: Performed By: #### C BC #### [facility] [address] [place] [address] Dr. Ashlie Hills [facility] Comment on above: Performed By: #### C BC #### [facility] [address] [place] [address] Dr. Ashlie Hills [facility] Comment on above: Performed By: #### C BC #### [facility] [address] [place] [address] Dr. Ashlie Hills [facility] Comment on above: Performed By: #### C BC #### [facility] [address] [place] [address] Dr. Ashlie Hills BNPon 12-04-2022 Natriuretic peptide B (Bld) [Mass/Vol] 76.0 pg/mL Normal <=900.0 [facility] Comment on above: Performed By: #### P OCGLUC #### [facility] [address] [place] [address] Dr. Ashlie Hills CBC AUTO DIFFon 12-04-2022 BASO # 0.1 103/ul Normal 0.0-0.1 [facility] Comment on above: Performed By: #### C BC #### [facility] [address] [place] [address] Dr. Ashlie Hills Basophils/100 WBC (Bld) 0.6 % Normal 0.2-2.0 [facility] Comment on above: Performed By: #### C BC #### [facility] [address] [place] [address] Dr. Ashlie Hills EO # 0.2 103/ul Normal 0.0-0.7 [facility] Comment on above: Performed By: #### C BC #### [facility] [address] [place] [address] Dr. Ashlie Hills Eosinophils/100 WBC (Bld) 1.9 % Normal 0.9-7.0 [facility] Comment on above: Performed By: #### C BC #### [facility] [address] [place] [address] Dr. Ashlie Hills Erythrocyte distribution width (RBC) [Ratio] 15.0 % Normal 11.0-15.0 [facility] Comment on above: Performed By: #### C BC #### [facility] [address] [place] [address] Dr. Ashlie Hills Hematocrit (Bld) [Volume fraction] 49.1 % Critically high 36.0-48.0 [facility] Comment on above: Performed By: #### C BC #### [facility] [address] [place] [address] Dr. Ashlie Hills Hemoglobin (Bld) [Mass/Vol] 15.6 g/dL Normal 12.0-16.0 [facility] Comment on above: Performed By: #### C BC #### [facility] [address] [place] [address] Dr. Ashlie Hills IG # 0.02 10e3/ul Normal 0.00-0.03 [facility] Comment on above: Performed By: #### C BC #### [facility] [address] [place] [address] Dr. Ashlie Hills IG % 0.2 % Normal 0.0-0.5 [facility] Comment on above: Performed By: #### C BC #### [facility] [address] [place] [address] Dr. Ashlie Hills LYMPH # 2.8 103/ul Normal 1.2-3.8 [facility] Comment on above: Performed By: #### C BC #### [facility] [address] [place] [address] Dr. Ashlie Hills Lymphocytes/100 WBC (Bld) 29.9 % Normal 20.5-60.0 [facility] Comment on above: Performed By: #### C BC #### [facility] [address] [place] [address] Dr. Ashlie Hills MANUAL DIFF REQ NO Normal [facility] Comment on above: Performed By: #### C BC #### [facility] [address] [place] [address] Dr. Ashlie Hills MCH (RBC) [Entitic mass] 28.5 pg Normal 26.7-34.0 [facility] Comment on above: Performed By: #### C BC #### [facility] [address] [address] [address] Ashlie Hills MCHC (RBC) [Mass/Vol] 31.8 g/dL Normal 29.9-35.2 [facility] Comment on above: Performed By: #### C BC #### [facility] [address] [address] [address] Ashlie Hills MCV (RBC) [Entitic vol] 89.8 fL Normal 81.0-99.0 [facility] Comment on above: Performed By: #### C BC #### [facility] [address] [address] [address] Ashlie Hills MONO # 1.0 103/ul Critically high 0.3-0.8 [facility] Comment on above: Performed By: #### C BC #### [facility] [address] [address] [address] Ashlie Hills Monocytes/100 WBC (Bld) 10.6 % Normal 1.7-12.0 [facility] Comment on above: Performed By: #### C BC #### [facility] [address] [place] [address] Dr. Ashlie Hills NEUT # 5.3 103/ul Normal 1.4-6.5 [facility] Comment on above: Performed By: #### C BC #### [facility] [address] [address] [address] Ashlie Hills Neutrophils/100 WBC (Bld) 56.8 % Normal 43.0-75.0 [facility] Comment on above: Performed By: #### C BC #### [facility] [address] [address] [address] Ashlie Hills Platelet mean volume (Bld) [Entitic vol] 12.5 fL Normal 9.5-13.5 [facility] Comment on above: Performed By: #### C BC #### [facility] [address] [address] [address] Ashlie Hills PLT 109 103/ul Critically low 150-450 [facility] Comment on above: Performed By: #### C BC #### [facility] [address] [address] [address] Ashlie Hills RBC 5.47 106/ul Critically high 4.20-5.40 [facility] Comment on above: Performed By: #### C BC #### [facility] [address] [place] [address] Dr. Ashlie Hills WBC 9.4 103/ul Normal 4.0-11.0 [facility] Comment on above: Performed By: #### C BC #### [facility] [address] [place] [address] Dr. Ashlie Hills PROF 14(COMP METB)on 023 Albumin [Mass/Vol] 2.9 g/dL Critically low 3.4-5.0 [facility] Comment on above: Performed By: #### C BC #### [facility] [address] [place] [address] Dr. Ashlie Hills Albumin/Globulin [Mass ratio] 0.6 {ratio} Normal [facility] Comment on above: Performed By: #### C BC #### [facility] [address] [place] [address] Dr. Ashlie Hills ALP [Catalytic activity/Vol] 64 U/L Normal 46-116 [facility] Comment on above: Performed By: #### C BC #### [facility] [address] [place] [address] Dr. Ashlie Hills ALT [Catalytic activity/Vol] 16 U/L Normal 14-59 [facility] Comment on above: Performed By: #### C BC #### [facility] [address] [place] [address] Dr. Ashlie Hills Anion gap [Moles/Vol] 9.6 mmol/L Normal [facility] Comment on above: Performed By: #### C BC #### [facility] [address] [place] [address] Dr. Ashlie Hills AST [Catalytic activity/Vol] 16 U/L Normal 15-37 [facility] Comment on above: Performed By: #### C BC #### [facility] [address] [address] [address] Ashlie Hills Bilirubin [Mass/Vol] 0.5 mg/dL Normal 0.2-1.0 [facility] Comment on above: Performed By: #### C BC #### [facility] [address] [address] [address] Ashlie Hills Calcium [Mass/Vol] 8.7 mg/dL Normal 8.5-10.1 [facility] Comment on above: Performed By: #### C BC #### [facility] [address] [address] [address] Ashlei Hills Chloride [Moles/Vol] 103 mmol/L Normal 98-107 [facility] Comment on above: Performed By: #### C BC #### [facility] [address] [place] [address] Dr. Ashlie Hills CO2 [Moles/Vol] 30.7 mmol/L Normal 21.0-32.0 [facility] Comment on above: Performed By: #### C BC #### [facility] [address] [place] [address] Dr. Ashlie Hills Creatinine [Mass/Vol] 0.96 mg/dL Normal 0.55-1.02 [facility] Comment on above: Performed By: #### C BC #### [facility] [address] [place] [address] Dr. Ashlie Hills EGFR-AF CENTRAL AFRICAN >60 Normal >=60 [facility] Comment on above: Performed By: #### C BC #### [facility] [address] [place] [address] Dr. Ashlie Hills EGFR-NON AF CENTRAL AFRICAN >60 Normal >=60 [facility] Comment on above: Performed By: #### C BC #### [facility] [address] [place] [address] Dr. Ashlie Hills Globulin (S) [Mass/Vol] 4.7 g/dL Normal [facility] Comment on above: Performed By: #### C BC #### [facility] [address] [place] [address] Dr. Ashlie Hills Glucose [Mass/Vol] 170 mg/dL Critically high 74-106 [facility] Comment on above: Performed By: #### C BC #### [facility] [address] [address] [address] Ashlie Hills Potassium [Moles/Vol] 4.3 mmol/L Normal 3.5-5.1 [facility] Comment on above: Performed By: #### C BC #### [facility] [address] [address] [address] Ashlie Hills Protein [Mass/Vol] 7.6 g/dL Normal 6.4-8.2 [facility] Comment on above: Performed By: #### C BC #### [facility] [address] [place] [address] Dr. Ashlie Hills Sodium [Moles/Vol] 139 mmol/L Normal 136-145 [facility] Comment on above: Performed By: #### C BC #### [facility] [address] [place] [address] Dr. Ashlie Hills Urea nitrogen [Mass/Vol] 16.0 mg/dL Normal 7.0-18.0 [facility] Comment on above: Performed By: #### C BC #### [facility] [address] [place] [address] Dr. Ashlie Hills Urea nitrogen/Creatinine [Mass ratio] 16.7 mg/mg Normal [facility] Comment on above: Performed By: #### C BC #### [facility] [address] [place] [address] Dr. Ashlie Hills SYMPTOMATIC COVID-19 ANTIGEN on 12-04-2022 EUA Statement SEE BELOW Normal [facility] Comment on above: Result Comment: This test [...] By: #### C VDAGS #### [facility] [address] [place] [address] Dr. Ashlie Hills SARS-CoV-2 (COVID-19) RNA MADDY+probe Ql (Unsp spec) Negative Normal NEGATIVE [facility] Comment on above: Performed By: #### C VDAGS #### [facility] [address] [place] [address] Dr. Ashlie Hills TROPONIN, HIGH SENSITIVITYon 12-04-2022 HSTROP 8.9 pg/mL Normal 4.0-51.3 [facility] Comment on above: Result Comment: CUT- OFF POINTS HAVE BEEN ESTABLISHED BASED ON THE FOURTH UNIVERSAL DEFINITIONS OF MYOCARDIAL INFARCTION. THE UPPER REFERENCE LIMIT (URL) OF TROPONIN, DEFINED THE 99TH PERCENTILE OF cTnI DISTRIBUTION IN A REFERENCE POPULATION, HAS BEEN CONFIRMED THE DECISION THRESHOLD FOR [place] DIAGNOSIS. Performed By: #### P OCGLUC #### [facility] [address] [place] [address] Dr. Ashlie Hills MICROALBUMIN, RAND URon 11-06 mALB 35.8 mg/dL Critically high <=30.0 [facility] Comment on above: Performed By: #### C VDAGS #### [facility] [address] [place], [place] [id number] Dr. Ashlie Hills UA RANDOM W/MICROSCOPICon BACTERIA NONE SEEN Normal NONE SEEN [facility] Comment on above: Performed By: #### C VDAGS #### [facility] [address] [place] [address] Dr. Ashlie Hills Bilirubin Ql (U) Negative Normal NEGATIVE [facility] Comment on above: Performed By: #### C VDAGS #### [facility] [address] [place] [address] Dr. Ashlie Hills CAST SEEN Abnormal NONE SEEN [facility] Comment on above: Performed By: #### C VDAGS #### [facility] [address] [place] [address] Dr. Ashlie Hills Clarity (U) CLEAR Normal CLEAR [facility] Comment on above: Performed By: #### C VDAGS #### [facility] [address] [place] [address] Dr. Ashlie Hills Color (U) YELLOW Normal YELLOW [facility] Comment on above: Performed By: #### C VDAGS #### [facility] [address] [place] [address] Dr. Ashlie Hills Crystals LM Nom (Urine sed) NONE SEEN Normal NONE SEEN [facility] Comment on above: Performed By: #### C VDAGS #### [facility] [address] [place] [address] Dr. Ashlie Hills Epithelial cells LM Ql (Urine sed) MODERATE Abnormal NONE SEEN /RARE [facility] Comment on above: Performed By: #### C VDAGS #### [facility] [address] [place] [address] Dr. Ashlie Hills Glucose Ql (U) Negative Normal NEGATIVE [facility] Comment on above: Performed By: #### C VDAGS #### [facility] [address] [place] [address] Dr. Ashlie Hills Hemoglobin Ql (U) TRACE-INTACT Abnormal NEGATIVE [facility] Comment on above: Performed By: #### C VDAGS #### [facility] [address] [place] [address] Dr. Ashlie Hills Ketones Ql (U) Negative Normal NEGATIVE The [place] Comment on above: Performed By: #### C VDAGS #### [facility] [address] [place] [address] Dr. Ashlie Hills LEUKOCYTES Negative Normal NEGATIVE [facility] Comment on above: Performed By: #### C VDAGS #### [facility] [address] [place] [address] Dr. Ashlie Hills MUCOUS NONE SEEN Normal NONE SEEN [facility] Comment on above: Performed By: #### C VDAGS #### [facility] [address] [place] [address] Dr. Ashlie Hills Nitrite Ql (U) Negative Normal NEGATIVE [facility] [place] Comment on above: Performed By: #### C VDAGS #### [facility] [address] [place] [address] Dr. Ashlie Hills pH (U) 5.0 [pH] Normal 5-9 [facility] Comment on above: Performed By: #### C VDAGS #### [facility] [address] [place] [address] Dr. Ashlie Hills RBC 0-2 Normal 0-2 [facility] Comment on above: Performed By: #### C VDAGS #### [facility] [address] [place] [address] Dr. Ashlie Hills SPEC GRAVITY 1.030 Abnormal 1.005-<=1.025 [facility] Comment on above: Performed By: #### C VDAGS #### [facility] [address] [place] [address] Dr. Ashlie Hills UA PROTEIN 100 mg/dl Abnormal NEGATIVE/ TRACE [facility] Comment on above: Performed By: #### C VDAGS #### [facility] [address] [place] [address] Dr. Ashlie Hills Urobilinogen Qn (U) 0.2 {Little'U}/dL Normal 0.2 - 1. 0 [facility] Comment on above: Performed By: #### C VDAGS #### [facility] [address] [place] [address] Dr. Ashlie Hills WBC NONE SEEN Normal NONE SEEN [facility] Comment on above: Performed By: #### C VDAGS #### [facility] [address] [place] [address] Dr. Ashlie Hills CBC AUTO DIFFon 11-22-2022 BASO # 0.0 103/ul Normal 0.0-0.1 [facility] Comment on above: Performed By: #### C BC #### [facility] [address] [place] [address] Dr. Ashlie Hills Basophils/100 WBC (Bld) 0.3 % Normal 0.2-2.0 [facility] Comment on above: Performed By: #### C BC #### [facility] [address] [place] [address] Dr. Ashlie Hills EO # 0.4 103/ul Normal 0.0-0.7 [facility] Comment on above: Performed By: #### C BC #### [facility] [address] [place] [address] Dr. Ashlie Hills Eosinophils/100 WBC (Bld) 3.0 % Normal 0.9-7.0 [facility] Comment on above: Performed By: #### C BC #### [facility] [address] [place] [address] Dr. Ashlie Hills Erythrocyte distribution width (RBC) [Ratio] 15.3 % Critically high 11.0-15.0 [facility] Comment on above: Performed By: #### C BC #### [facility] [address] [place] [address] Dr. Ashlie Hills Hematocrit (Bld) [Volume fraction] 52.4 % Critically high 36.0-48.0 [facility] Comment on above: Performed By: #### C BC #### [facility] [address] [place] [address] Dr. Ashlie Hills Hemoglobin (Bld) [Mass/Vol] 16.8 g/dL Critically high 12.0-16.0 [facility] Comment on above: Performed By: #### C BC #### [facility] [address] [place] [address] Dr. Ashlie Hills IG # 0.04 10e3/ul Critically high 0.00-0.03 [facility] Comment on above: Performed By: #### C BC #### [facility] [address] [place] [address] Dr. Ashlie Hills IG % 0.3 % Normal 0.0-0.5 [facility] Comment on above: Performed By: #### C BC #### [facility] [address] [place] [address] Dr. Ashlie Hills LYMPH # 4.5 103/ul Critically high 1.2-3.8 [facility] Comment on above: Performed By: #### C BC #### [facility] [address] [place] [address] Dr. Ashlie Hills Lymphocytes/100 WBC (Bld) 33.2 % Normal 20.5-60.0 [facility] Comment on above: Performed By: #### C BC #### [facility] [address] [place] [address] Dr. Ashlie Hills MANUAL DIFF REQ NO Normal [facility] Comment on above: Performed By: #### C BC #### [facility] [address] [place] [address] Dr. Ashlie Hills MCH (RBC) [Entitic mass] 28.0 pg Normal 26.7-34.0 [facility] Comment on above: Performed By: #### C BC #### [facility] [address] [place] [address] Dr. Ashlie Hills MCHC (RBC) [Mass/Vol] 32.1 g/dL Normal 29.9-35.2 [facility] Comment on above: Performed By: #### C BC #### [facility] [address] [place] [address] Dr. Ashlie Hills MCV (RBC) [Entitic vol] 87.3 fL Normal 81.0-99.0 [facility] Comment on above: Performed By: #### C BC #### [facility] [address] [place] [address] Dr. Ashlie Hills MONO # 0.8 103/ul Normal 0.3-0.8 [facility] Comment on above: Performed By: #### C BC #### [facility] [address] [place] [address] Dr. Ashlie Hills Monocytes/100 WBC (Bld) 5.7 % Normal 1.7-12.0 [facility] Comment on above: Performed By: #### C BC #### [facility] [address] [place] [address] Dr. Ashlie Hills NEUT # 7.8 103/ul Critically high 1.4-6.5 [facility] Comment on above: Performed By: #### C BC #### [facility] [address] [place] [address] Dr. Ashlie Hills Neutrophils/100 WBC (Bld) 57.5 % Normal 43.0-75.0 [facility] Comment on above: Performed By: #### C BC #### [facility] [address] [place] [address] Dr. Ashlie Hills Platelet mean volume (Bld) [Entitic vol] 12.0 fL Normal 9.5-13.5 [facility] Comment on above: Performed By: #### C BC #### [facility] [address] [place] [address] Dr. Ashlie Hills PLT 152 103/ul Normal 150-450 [facility] Comment on above: Performed By: #### C BC #### [facility] [address] [place] [address] Dr. Ashlie Hills RBC 6.00 106/ul Critically high 4.20-5.40 [facility] Comment on above: Performed By: #### C BC #### [facility] [address] [place] [address] Dr. Ashlie Hills WBC 13.6 103/ul Critically high 4.0-11.0 [facility] Comment on above: Performed By: #### C BC #### [facility] [address] [place] [address] Dr. Ashlie Hills LIPID PROFILEon 11-22-2022 CHOL-HDL RATIO NORM SEE BELOW Normal [facility] Comment on above: Result Comment: 3.3 - 4.4 LOW RISK 4.4 - 7.1 AVERAGE RISK 7.1 - 11.0 MODERATE RISK >11.0 HIGH RISK Performed By: #### C BC #### [facility] [address] [place] [address] Dr. Ashlie Hills Cholesterol [Mass/Vol] 139 mg/dL Normal <=200 [facility] Comment on above: Performed By: #### C BC #### [facility] [address] [place] [address] Dr. Ashlie Hills Cholesterol in HDL [Mass/Vol] 35 mg/dL Critically low 40-60 [facility] Comment on above: Performed By: #### C BC #### [facility] [address] [address] [address] Ashlie Hills Cholesterol in LDL [Mass/Vol] 67.4 mg/dL Normal [facility] Comment on above: Performed By: #### C BC #### [facility] [address] [address] [address] Ashlie Hills Cholesterol.total/Chol esterol in HDL [Mass ratio] 4.0 {ratio} Normal [facility] Comment on above: Performed By: #### C BC #### [facility] [address] [place] [address] Dr. Ashlie Hills HDL NORMAL > or = 60 mg/dl - LOW CARDIOVASCULAR RISK <40 mg/dl - HIGH CARDIOVASCULAR RISK Normal [facility] Comment on above: Performed By: #### C BC #### [facility] [address] [place] [address] Dr. Ashlie Hills LDL CALC NORMAL SEE BELOW Normal [facility] Comment on above: Result Comment: <100 mg/dl OPTIMAL 100 - 129 mg/dl NEAR OR ABOVE OPTIMAL 130 - 159 mg/dl BORDERLINE HIGH 160 - 189 mg/dl HIGH >190 mg/dl VERY HIGH Performed By: #### C BC #### [facility] [address] [place] [address] Dr. Ashlie Hills Triglyceride [Mass/Vol] 183 mg/dL Critically high <=150 [facility] Comment on above: Performed By: #### C BC #### [facility] [address] [place] [address] Dr. Ashlie Hills VLDL CALC 36.6 mg/dL Normal [facility] Comment on above: Performed By: #### C BC #### [facility] [address] [place] [address] Dr. Ashlie Hills MG MAMM SCREEN 3D ALEX CADon 11-22-2022 MG MAMM SCREEN 3D ALEX CAD Patient: MITZI MACIAS Exam Date: 11/22/2022 : 1970 Gender:F Ordering : SAYDA BLAS DIRECTOR OPERATING ROOM Admission #: [id number] Family : Order #: [id number] CLICK HERE TO VIEW EXAM RADIOLOGY REPORT [...] at age 75. LOCATION: [facility] BREAST COMPOSITION: Almost entirely fatty. FINDINGS: [...] Veloz M.D. on 11/22/2022 at 12:09 Normal [facility] PROF 14(COMP METB)on 023 Albumin [Mass/Vol] 3.0 g/dL Critically low 3.4-5.0 Th e [facility] Comment on above: Performed By: #### C BC #### [facility] [address], [place] [address] Dr. Ashlie Hills Albumin/Globulin [Mass ratio] 0.6 {ratio} Normal [facility] Comment on above: Performed By: #### C BC #### [facility] [address] [place], [place] [address] Dr[address] Ashlie Hills ALP [Catalytic activity/Vol] 68 U/L Normal 46-116 [facility] Comment on above: Performed By: #### C BC #### [facility] [address] [address] [address] Ashlie Hills ALT [Catalytic activity/Vol] 14 U/L Normal 14-59 [facility] Comment on above: Performed By: #### C BC #### [facility] [address] [address] [address] Ashlie Hills Anion gap [Moles/Vol] 12.1 mmol/L Normal [facility] Comment on above: Performed By: #### C BC #### [facility] [address] [address] [address] Ashlie Hills AST [Catalytic activity/Vol] 9 U/L Critically low 15-37 [facility] Comment on above: Performed By: #### C BC #### [facility] [address] [place] [address] Dr. Ashlie Hills Bilirubin [Mass/Vol] 0.4 mg/dL Normal 0.2-1.0 [facility] Comment on above: Performed By: #### C BC #### [facility] [address] [place] [address] Dr. Ashlie Hills Calcium [Mass/Vol] 9.0 mg/dL Normal 8.5-10.1 [facility] Comment on above: Performed By: #### C BC #### [facility] [address] [place] [address] Dr. Ashlie Hills Chloride [Moles/Vol] 105 mmol/L Normal 98-107 [facility] Comment on above: Performed By: #### C BC #### [facility] [address] [place] [address] Dr. Ashlie Hills CO2 [Moles/Vol] 30.7 mmol/L Normal 21.0-32.0 [facility] Comment on above: Performed By: #### C BC #### [facility] [address] [place] [address] Dr. Ashlie Hills Creatinine [Mass/Vol] 0.77 mg/dL Normal 0.55-1.02 [facility] Comment on above: Performed By: #### C BC #### [facility] [address] [address] [address] Ashlie Hills EGFR-AF CENTRAL AFRICAN >60 Normal >=60 [facility] Comment on above: Performed By: #### C BC #### [facility] [address] [id number] [address] Ashlie Hills EGFR-NON AF CENTRAL AFRICAN >60 Normal >=60 [facility] Comment on above: Performed By: #### C BC #### [facility] [address] [address] [address] Ashlie Hills Globulin (S) [Mass/Vol] 4.8 g/dL Normal [facility] Comment on above: Performed By: #### C BC #### [facility] [address] [address] [address] Ashlie Hills Glucose [Mass/Vol] 162 mg/dL Critically high 74-106 [facility] Comment on above: Performed By: #### C BC #### [facility] [address] [place] [address] Dr. Ashlie Hills Potassium [Moles/Vol] 3.8 mmol/L Normal 3.5-5.1 [facility] Comment on above: Performed By: #### C BC #### [facility] [address] [place] [address] Dr. Ashlie Hills Protein [Mass/Vol] 7.8 g/dL Normal 6.4-8.2 [facility] Comment on above: Performed By: #### C BC #### [facility] [address] [address] [address] Ashlie Hills Sodium [Moles/Vol] 144 mmol/L Normal 136-145 [facility] Comment on above: Performed By: #### C BC #### [facility] [address] [place] [address] Dr. Ashlie Hills Urea nitrogen [Mass/Vol] 24.0 mg/dL Critically high 7.0-18.0 [facility] Comment on above: Performed By: #### C BC #### [facility] [address] [place] [address] Dr. Ashlie Hills Urea nitrogen/Creatinine [Mass ratio] 31.2 mg/mg Normal [facility] Comment on above: Performed By: #### C BC #### [facility] [address] [place] [address] Dr. Ashlie Hills CBC AUTO DIFFon 10-05-2022 BASO # 0.1 103/ul Normal 0.0-0.1 [facility] Comment on above: Performed By: #### C BC #### [facility] [address] [place] [address] Dr. Ashlie Hills Basophils/100 WBC (Bld) 0.6 % Normal 0.2-2.0 [facility] Comment on above: Performed By: #### C BC #### [facility] [address] [place] [address] Dr. Ashlie Hills EO # 0.3 103/ul Normal 0.0-0.7 [facility] Comment on above: Performed By: #### C BC #### [facility] [address] [place] [address] Dr. Ashlie Hills Eosinophils/100 WBC (Bld) 2.1 % Normal 0.9-7.0 [facility] Comment on above: Performed By: #### C BC #### [facility] [address] [place] [address] Dr. Ashlie Hills Erythrocyte distribution width (RBC) [Ratio] 15.9 % Critically high 11.0-15.0 [facility] Comment on above: Performed By: #### C BC #### [facility] [address] [place] [address] Dr. Ashlie Hills Hematocrit (Bld) [Volume fraction] 51.8 % Critically high 36.0-48.0 [facility] Comment on above: Performed By: #### C BC #### [facility] [address] [place] [address] Dr. Ashlie Hills Hemoglobin (Bld) [Mass/Vol] 16.6 g/dL Critically high 12.0-16.0 [facility] Comment on above: Performed By: #### C BC #### [facility] [address] [place] [address] Dr. Ashlie Hills IG # 0.03 10e3/ul Normal 0.00-0.03 [facility] Comment on above: Performed By: #### C BC #### [facility] [address] [place] [address] Dr. Ashlie Hills IG % 0.2 % Normal 0.0-0.5 [facility] Comment on above: Performed By: #### C BC #### [facility] [address] [place] [address] Dr. Ashlie Hills LYMPH # 3.9 103/ul Critically high 1.2-3.8 [facility] Comment on above: Performed By: #### C BC #### [facility] [address] [place] [address] Dr. Ashlie Hills Lymphocytes/100 WBC (Bld) 31.7 % Normal 20.5-60.0 [facility] Comment on above: Performed By: #### C BC #### [facility] [address] [place] [address] Dr. Ashlie Hills MANUAL DIFF REQ NO Normal [facility] Comment on above: Performed By: #### C BC #### [facility] [address] [place] [address] Dr. Ashlie Hills MCH (RBC) [Entitic mass] 27.9 pg Normal 26.7-34.0 [facility] Comment on above: Performed By: #### C BC #### [facility] [address] [place] [address] Dr. Ashlie Hills MCHC (RBC) [Mass/Vol] 32.0 g/dL Normal 29.9-35.2 [facility] Comment on above: Performed By: #### C BC #### [facility] [address] [place] [address] Dr. Ashlie Hills MCV (RBC) [Entitic vol] 87.1 fL Normal 81.0-99.0 [facility] Comment on above: Performed By: #### C BC #### [facility] [address] [place] [address] Dr. Ashlie Hills MONO # 0.7 103/ul Normal 0.3-0.8 [facility] Comment on above: Performed By: #### C BC #### [facility] [address] [place] [address] Dr. Ashlie Hills Monocytes/100 WBC (Bld) 5.8 % Normal 1.7-12.0 [facility] Comment on above: Performed By: #### C BC #### [facility] [address] [place] [address] Dr. Ashlie Hills NEUT # 7.3 103/ul Critically high 1.4-6.5 [facility] Comment on above: Performed By: #### C BC #### [facility] [address] [place] [address] Dr. Ashlie Hills Neutrophils/100 WBC (Bld) 59.6 % Normal 43.0-75.0 [facility] Comment on above: Performed By: #### C BC #### [facility] [address] [place] [address] Dr. Ashlie Hills Platelet mean volume (Bld) [Entitic vol] 11.7 fL Normal 9.5-13.5 [facility] Comment on above: Performed By: #### C BC #### [facility] [address] [place] [address] Dr. Ashlie Hills PLT 117 103/ul Critically low 150-450 [facility] Comment on above: Performed By: #### C BC #### [facility] [address] [place] [address] Dr. Ashlie Hills RBC 5.95 106/ul Critically high 4.20-5.40 [facility] Comment on above: Performed By: #### C BC #### [facility] [address] [place] [address] Dr. Ashlie Hills WBC 12.3 103/ul Critically high 4.0-11.0 [facility] Comment on above: Performed By: #### C BC #### [facility] [address] [place] [address] ABD/PELV W CONon [...] Date: 2022-10-05 13:13 Normal [facility] URINE PROFILEon 3 Bilirubin Ql (U) Negative Normal NEGATIVE [facility] Comment on above: Performed By: #### P OCGLUC #### [facility] [address] [place] [address] Dr. Ashlie Hills Clarity (U) CLEAR Normal CLEAR [facility] Comment on above: Performed By: #### P OCGLUC #### [facility] [address] [place] [address] Dr. Ashlie Hills Color (U) YELLOW Normal YELLOW [facility] Comment on above: Performed By: #### P OCGLUC #### [facility] [address] [place] [address] Dr. Ashlie Hills ERUADE A micrscopic examination will be performed if indicated. Normal [facility] Comment on above: Performed By: #### P OCGLUC #### [facility] [address] [place] [address] Dr. Ashlie Hills Glucose Ql (U) Negative Normal NEGATIVE [facility] Comment on above: Performed By: #### P OCGLUC #### [facility] [address] [address] [address] Ashlie Hills Hemoglobin Ql (U) Negative Normal NEGATIVE [facility] Comment on above: Performed By: #### P OCGLUC #### [facility] [address] [address] [address] Ashlie Hills Ketones Ql (U) Negative Normal NEGATIVE [facility] Comment on above: Performed By: #### P OCGLUC #### [facility] [address] [address] [address] Ashlie Hills LEUKOCYTES Negative Normal NEGATIVE [facility] Comment on above: Performed By: #### P OCGLUC #### [facility] [address] [place] [address] Dr. Ashlie Hills Nitrite Ql (U) Negative Normal NEGATIVE [facility] Comment on above: Performed By: #### P OCGLUC #### [facility] [address] [place] [address] Dr. Ashlie Hills pH (U) 6.0 [pH] Normal 5-9 [facility] Comment on above: Performed By: #### P OCGLUC #### [facility] [address] [address] [address] Ashlie Hills Protein (U) [Mass/Vol] 100 mg/dL Abnormal NEGAT YURY/ TRACE [facility] Comment on above: Performed By: #### P OCGLUC #### [facility] [address] [address] [address] Ashlie Hills SPEC GRAVITY 1.010 Normal 1.005-<=1.025 [facility] Comment on above: Performed By: #### P OCGLUC #### [facility] [address] [place] [address] Dr. Ashlie Hills UR MICRO IND INDICATED Normal [facility] Comment on above: Performed By: #### P OCGLUC #### [facility] [address] [place] [address] Dr. Ashlie Hills Urobilinogen Qn (U) 1.0 {Little'U}/dL Normal 0.2 - 1. 0 [facility] Comment on above: Performed By: #### P OCGLUC #### [facility] [address] [place] [address] Dr. Ashlie Hills LIPASEon 10-05-2022 Lipase [Catalytic activity/Vol] 1771.0 U/L Critically high 73.0-393.0 [facility] Comment on above: Performed By: #### C BC #### [facility] [address] [place] [address] Dr. Ashlie Hills PREG HCG QUALon 10-05-2022 , QUAL Negative Normal NEGATIVE [facility] Comment on above: Performed By: #### P OCGLUC #### [facility] [address] [place] [address] Dr. Ashlie Hills PROF 14(COMP METB)on 023 Albumin [Mass/Vol] 3.2 g/dL Critically low 3.4-5.0 [facility] Comment on above: Performed By: #### C BC #### [facility] [address] [place] [address] Dr. Ashlie Hills Albumin/Globulin [Mass ratio] 0.7 {ratio} Normal [facility] Comment on above: Performed By: #### C BC #### [facility] [address] [place] [address] Dr. Ashlie Hills ALP [Catalytic activity/Vol] 70 U/L Normal 46-116 [facility] Comment on above: Performed By: #### C BC #### [facility] [address] [place] [address] Dr. Ashlie Hills ALT [Catalytic activity/Vol] 11 U/L Critically low 14-59 [facility] Comment on above: Performed By: #### C BC #### [facility] [address] [place] [address] Dr. Ashlie Hills Anion gap [Moles/Vol] 10.3 mmol/L Normal [facility] Comment on above: Performed By: #### C BC #### [facility] [address] [place] [address] Dr. Ashlie Hills AST [Catalytic activity/Vol] 11 U/L Critically low 15-37 [facility] Comment on above: Performed By: #### C BC #### [facility] [address] [address] [address] Ashlie Hills Bilirubin [Mass/Vol] 0.9 mg/dL Normal 0.2-1.0 [facility] Comment on above: Performed By: #### C BC #### [facility] [address] [address] [address] Ashlie Hills Calcium [Mass/Vol] 9.3 mg/dL Normal 8.5-10.1 [facility] Comment on above: Performed By: #### C BC #### [facility] [address] [address] [address] Ashlie Hills Chloride [Moles/Vol] 105 mmol/L Normal 98-107 [facility] Comment on above: Performed By: #### C BC #### [facility] [address] [address] [address] Ashlie Hills CO2 [Moles/Vol] 30.6 mmol/L Normal 21.0-32.0 [facility] Comment on above: Performed By: #### C BC #### [facility] [address] [address] [address] Ashlie Hills Creatinine [Mass/Vol] 0.62 mg/dL Normal 0.55-1.02 [facility] Comment on above: Performed By: #### C BC #### [facility] [address] [address] [address] Ashlie Hills EGFR-AF CENTRAL AFRICAN >60 Normal >=60 [facility] Comment on above: Performed By: #### C BC #### [facility] [address] [address] [address] Ashlie Hills EGFR-NON AF CENTRAL AFRICAN >60 Normal >=60 [facility] Comment on above: Performed By: #### C BC #### [facility] [address] [address] [address] Ashlie Hills Globulin (S) [Mass/Vol] 4.6 g/dL Normal [facility] Comment on above: Performed By: #### C BC #### [facility] [address] [address] [address] Ashlie Hills Glucose [Mass/Vol] 85 mg/dL Normal 74-106 [facility] Comment on above: Performed By: #### C BC #### [facility] [address] [address] [address] Ashlie Hills Potassium [Moles/Vol] 3.9 mmol/L Normal 3.5-5.1 [facility] Comment on above: Performed By: #### C BC #### [facility] [address] [address] [address] Ashlie Hills Protein [Mass/Vol] 7.8 g/dL Normal 6.4-8.2 [facility] Comment on above: Performed By: #### C BC #### [facility] [address] [address] [address] Ashlie Hills Sodium [Moles/Vol] 142 mmol/L Normal 136-145 [facility] Comment on above: Performed By: #### C BC #### [facility] [address] [address] [address] Ashlie Hills Urea nitrogen [Mass/Vol] 12.0 mg/dL Normal 7.0-18.0 [facility] Comment on above: Performed By: #### C BC #### [facility] [address] [address] [address] Ashlie Hills Urea nitrogen/Creatinine [Mass ratio] 19.4 mg/mg Normal [facility] Comment on above: Performed By: #### C BC #### [facility] [address] [address] [address] Ashlie Hills URINE MICROSCOPIC ONLYon BACTERIA TRACE Abnormal NONE SEEN [facility] Comment on above: Performed By: #### P OCGLUC #### [facility] [address] [address] [address] Ashlie Hills Bacteria identified Cx Nom (U) NOT INDICATED Normal [facility] Comment on above: Performed By: #### P OCGLUC #### [facility] [address] [place] [address] Dr. Ashlie Hills CAST NONE SEEN Normal NONE SEEN [facility] Comment on above: Performed By: #### P OCGLUC #### [facility] [address] [place] [address] Dr. Ashlie Hills Crystals LM Nom (Urine sed) NONE SEEN Normal NONE SEEN [facility] Comment on above: Performed By: #### P OCGLUC #### [facility] [address] [place] [address] Dr. Ashlie Hills Epithelial cells LM Ql (Urine sed) MODERATE Abnormal NONE SEEN /RARE [facility] Comment on above: Performed By: #### P OCGLUC #### [facility] [address] [place] [address] Dr. Ashlie Hills MUCOUS NONE SEEN Normal NONE SEEN [facility] Comment on above: Performed By: #### P OCGLUC #### [facility] [address] [place] [address] Dr. Ashlie Hills RBC 0-2 Normal 0-2 [facility] Comment on above: Performed By: #### P OCGLUC #### [facility] [address] [place] [address] Dr. Ashlie Hills WBC 0-2 Abnormal NONE SEEN [facility] Comment on above: Performed By: #### P OCGLUC #### [facility] [address] [place] [address] Dr. Ashlie Hills [facility] SARS-CoV-2 (COVID-19) RNA MADDY+probe Ql (Unsp spec) Detected Abnormal NOT DETECTED [facility] Comment on above: Result Comment: This test is not yet approved or cleared by the [place] FDA. When there are no FDA-approved or cleared tests available, and other criteria are met, FDA can make tests available under an emergency access mechanism called an Emergency Use Authorization (EUA). The EUA for this test is supported by the Customer Development Representative of Health and Human Service's declaration that [...] By: #### C VDAGS #### [facility] [address] [place] [address] Dr. Ashlie Hills INFLUENZA A AND B AGon 09-21 [facility] SEE BELOW Normal [facility] Comment on above: Result Comment: Nega tive for Flu A protein angiten. Infection due to Flu A cannot be ruled out. Flu A angiten in the sample may be below the detection limit of the test. Performed By: #### I NFLUAB #### [facility] [address] [place] [address] Dr. Ashlie Hills [facility] Normal [facility] Comment on above: Result Comment: Nega tive for Flu B protein antigen. Infection due to Flu B cannot be ruled out. Flu B antigen in the sample may be below the detection limit of the test. Performed By: #### I NFLUAB #### [facility] [address] [place] [address] Dr. Ashlie Hills INFLUENZA A AG Negative Normal NEGATIVE SEE COMMENT [facility] Comment on above: Performed By: #### I NFLUAB #### [facility] [address] [place] [address] Dr. Ashlie Hlils INFLUENZA B AG Negative Normal NEGATIVE SEE COMMENT [facility] Comment on above: Performed By: #### I NFLUAB #### [facility] [address] [place] [address] ABD/PELV W CONon [...] to at least 10/21/2018, unchanged. https://www.ncbi.nlm .nih.gov/pmc/article s/[id number]/ Electronically authenticated by: COLLIN HUERTAS Date: 2022-07-27 14:56 Normal [facility] CREATININEon 07-18-2022 Creatinine [Mass/Vol] 0.81 mg/dL Normal 0.55-1.02 [facility] Comment on above: Performed By: #### C BC #### [facility] [address] [place] [address] Dr. Ashlie Hills EGFR-AF CENTRAL AFRICAN >60 Normal >=60 [facility] Comment on above: Performed By: #### C BC #### [facility] [address] [place] [address] Dr. Ashlie Hills EGFR-NON AF CENTRAL AFRICAN >60 Normal >=60 [facility] Comment on above: Performed By: #### C BC #### [facility] [address] [place] [address] LOW EXT W [...] PATRICIA VELOZ Date: 2022-07-18 14:58 Normal [facility] XR KNEE LT 1_2 Von 3 [...] Date: 2022-07-18 12:00 Normal [facility] Covid-19 PCR ([facility])on 06-09 SARS-CoV-2 (COVID-19) RNA MADDY+probe Ql (Unsp spec) Not detected Normal NOT DETECTED [facility] Comment on above: Result Comment: This test is not yet approved or cleared by the [place] FDA. When there are no FDA-approved or cleared tests available, and other criteria are met, FDA can make tests available under an emergency access mechanism called an Emergency Use Authorization (EUA). The EUA for this test is supported by the Customer Development Representative of Health and Human Service's (HHS's) declaration [...] By: #### C BC #### [facility] [address] [place] [address] Dr. Ashlie Hills INFLUENZA A AND B AGon 07-06 [facility] SEE BELOW Normal [facility] Comment on above: Result Comment: Nega tive for Flu A protein angiten. Infection due to Flu A cannot be ruled out. Flu A angiten in the sample may be below the detection limit of the test. Performed By: #### C BC #### [facility] [address] [place] [address] Dr. Ashlie Hills INFLUBNEGH SEE BELOW Normal [facility] Comment on above: Result Comment: Nega tive for Flu B protein antigen. Infection due to Flu B cannot be ruled out. Flu B antigen in the sample may be below the detection limit of the test. Performed By: #### C BC #### [facility] [address] [place] [address] Dr. Ashlie Hills INFLUENZA A AG Negative Normal NEGATIVE SEE COMMENT [facility] Comment on above: Performed By: #### C BC #### [facility] [address] [place] [address] Dr. Ashlie Hills INFLUENZA B AG Negative Normal NEGATIVE SEE COMMENT [facility] Comment on above: Performed By: #### C BC #### [facility] [address] [place] [address] Dr. Ashlie Hills POINT OF CARE GLUCOSEon 04-08 Glucose [Mass/Vol] 108 mg/dL Critically high 74-106 [facility] Comment on above: Performed By: #### C BC #### [facility] [address] [place] [address] Dr. Ashlie Hills RAGHU by IFAon 03-07-2022 Antinuclear Antibodies, IFA Negative Normal [facility] Comment on above: Result Comment: Nega tive <1:80 Borderline 1:80 Positive >1:80 ICAP nomenclature: AC-0 For more information about Hep-2 cell patterns use ANApatterns.org, the official website for the International Consensus on Antinuclear Antibody (RAGHU) Patterns (ICAP). Performed By: #### A NAIFA #### [facility] [address] [place] [address] Dr. Ashlie Hills IMMUNOFIXATION (TREVON), URINEo n 03-07-2022 TREVON Interpretation:U Comment Normal [facility] Comment on above: Result Comment: No m onoclonality detected. Performed By: #### C BC #### [facility] [address] [place] [address] Dr. Ashlie Hills IMMUNOFIXATION(TREVON),PROTEIN ELEC(PE),FREon 03-07-2022 Albumin [Mass/Vol] 3.0 g/dL Normal 2.9-4.4 [facility] Comment on above: Performed By: #### I NFLUAB #### [facility] [address] [place] [address] Dr. Ashlie Hills Albumin/Globulin [Mass ratio] 0.8 {ratio} Normal 0.7-1.7 [facility] Comment on above: Performed By: #### I NFLUAB #### [facility] [address] [place] [address] Dr. Ashlie Hills Mkgdi-3-Bedvevdt 0.3 g/dL Normal 0.0-0.4 [facility] Comment on above: Performed By: #### I NFLUAB #### [facility] [address] [place] [address] Dr. Ashlie Hills Dslun-1-Dqjownhl 1.0 g/dL Normal 0.4-1.0 [facility] Comment on above: Performed By: #### I NFLUAB #### [facility] [address] [place] [address] Dr. Ashlie Hills Beta Globulin 1.8 g/dL Critically high 0.7-1.3 [facility] Comment on above: Performed By: #### I NFLUAB #### [facility] [address] [place] [address] Dr. Ashlie Hills Free [place] Lt Chains,S 45.2 mg/L Critically high 3.3-19.4 [facility] Comment on above: Performed By: #### I NFLUAB #### [facility] [address] [place] [address] Dr. Ashlie Hills Free Lambda Lt Chains,S 40.3 mg/L Critically high 5.7-26.3 [facility] Comment on above: Performed By: #### I NFLUAB #### [facility] [address] [place] [address] Dr. Ashlie Hills Gamma Globulin 0.8 g/dL Normal 0.4-1.8 [facility] Comment on above: Performed By: #### I NFLUAB #### [facility] [address] [place] [address] Dr. Ashlie Hills Globulin (S) [Mass/Vol] 3.9 g/dL Normal 2.2-3.9 [facility] Comment on above: Performed By: #### I NFLUAB #### [facility] [address] [place] [address] Dr. Ashlie Hills Immunofixation Result, Serum Comment Normal [facility] Comment on above: Result Comment: No m onoclonality detected. Performed By: #### I NFLUAB #### [facility] [address] [place] [address] Dr. Ashlie Hills Immunoglobulin A, Qn, Serum 776 mg/dL Critically high 87-352 [facility] Comment on above: Performed By: #### I NFLUAB #### [facility] [address] [place] [address] Dr. Ashlie Hills Immunoglobulin G, Qn, Serum 955 mg/dL Normal 586-1602 [facility] Comment on above: Performed By: #### I NFLUAB #### [facility] [address] [place] [address] Dr. Ashlie Hills Immunoglobulin M, Qn, Serum 39 mg/dL Normal 26-217 [facility] Comment on above: Performed By: #### I NFLUAB #### [facility] [address] [place] [address] Dr. Ashlie Hills [place]/Lambda Ratio, S 1.12 Normal 0.26-1.65 [facility] Comment on above: Performed By: #### I NFLUAB #### [facility] [address] [place] [address] Dr. Ashlie Hills M-Bright Not Observed Normal Not Observed [facility] [place] Comment on above: Performed By: #### I NFLUAB #### [facility] [address] [place] [address] Dr. Ashlie Hills PDF . Normal [facility] Comment on above: Performed By: #### I NFLUAB #### [facility] [address] [place] [address] Dr. Ashlie Hills Please note: Comment Normal [facility] Comment on above: Result Comment: Prot ein electrophoresis scan will follow via computer, mail, or vice president regulatory delivery. Performed By: #### I NFLUAB #### [facility] [address] [place] [address] Dr. Ashlie Hills Protein [Mass/Vol] 6.9 g/dL Normal 6.0-8.5 [facility] Comment on above: Performed By: #### I NFLUAB #### [facility] [address] [place] [address] Dr. Ashlie Hills C-PEPTIDE, SERUMon 2 C-Peptide, Serum 3.1 ng/mL Normal 1.1-4.4 [facility] Comment on above: Result Comment: C-Pe ptide reference interval is for fasting patients. Performed By: #### C PEPT #### [facility] [address] [place] [address] Dr. Ashlie Hills HEP B SURFACE ANTIGEN SCREEN on 03-04-2022 HBsAg Screen Negative Normal Negative [facility] Comment on above: Performed By: #### C BC #### [facility] [address] [place] [address] Dr. Ashlie Hills HEPATITIS C VIRUS AB W/ REFL EX QUANTon 03-04-2022 HCV AB <0.1 Normal 0.0-0.9 [facility] Comment on above: Performed By: #### I NFLUAB #### [facility] [address] [place] [address] Dr. Ashlie Hills Interpretation: Comment Normal [facility] Comment on above: Result Comment: Nega tive Not infected with HCV, unless recent infection is suspected or other evidence exists to indicate HCV infection. Performed By: #### I NFLUAB #### [facility] [address] [address] [address] Ashlie Hills MICROALBUMIN/ CREATININE RAT IOon 03-04-2022 Albumin, Urine 367.4 ug/mL Normal Not Estab. The [facility] Comment on above: Performed By: #### C BC #### [facility] [address] [address] [address] Ashlie Hills Albumin/ Creatinine Ratio 239 mg/g creat Critically high 0-29 [facility] Comment on above: Result Comment: Norm al: 0 - 29 Moderately increased: 30 - 300 Severely increased: >300 Performed By: #### C BC #### [facility] [address] [address] [address] Ashlie Hills Creatinine, Urine 153.9 mg/dL Normal Not Estab. [facility] Comment on above: Performed By: #### C BC #### [facility] [address] [address] [address] Ashlie Hills VIT D 25-OH LABCORPon 2021 Vitamin D, 25-Hydroxy <4.0 Critically low 30.0-100.0 [facility] Comment on above: Result Comment: Graciela min D deficiency has been defined by the [place] of [employer] and an Endocrine Society practice guideline as a level of serum 25-OH vitamin D less than 20 ng/mL (1,2). The Endocrine Society went on to further define vitamin D insufficiency as a level between 21 and 29 ng/mL (2). 1. IOM ([place] of [employer]). 2010. Dietary reference intakes for calcium and D. [place]: The National Academies Press. 2. Lynda MF, Keely [place], Leandra LOPEZ, et al. Evaluation, treatment, and prevention of vitamin D deficiency: an Endocrine Society clinical practice guideline. JCEM. 2010; 96(7):1911-30. Performed By: #### C BC #### [facility] [address] [address] [address] Ashlie Hills GLYCOHEMOGLOBIN A1Con 2021 ADA RECOMMENDATION SEE BELOW Normal [facility] Comment on above: Result Comment: ADA RECOMMENDED LIMIT 4.0 - 6.0 ADA THERAPEUTIC TARGET < 7.0 ACTION SUGGESTED > 7.0 Performed By: #### C VDAGS #### [facility] [address] [place] [address] Dr. Ashlie Hills Glucose [Mass/Vol] 295 mg/dL Normal [facility] Comment on above: Performed By: #### C VDAGS #### [facility] [address] [place] [address] Dr. Ashlie Hills HbA1c (Bld) [Mass fraction] 11.9 % Critically high 4.5-6.2 [facility] Comment on above: Performed By: #### C VDAGS #### [facility] [address] [place] [address] Dr. Ashlie Hills HEMOGRAM AND PLATELon 2021 Hematocrit (Bld) [Volume fraction] 56.3 % Critically high 36.0-48.0 [facility] Comment on above: Performed By: #### C VDAGS #### [facility] [address] [place] [address] Dr. Ashlie Hills Hemoglobin (Bld) [Mass/Vol] 18.0 g/dL Critically high 12.0-16.0 [facility] Comment on above: Performed By: #### C VDAGS #### [facility] [address] [place] [address] Dr. Ashlie Hills MCH (RBC) [Entitic mass] 29.5 pg Normal 26.7-34.0 [facility] Comment on above: Performed By: #### C VDAGS #### [facility] [address] [place] [address] Dr. Ashlie Hills MCHC (RBC) [Mass/Vol] 32.0 g/dL Normal 29.9-35.2 [facility] Comment on above: Performed By: #### C VDAGS #### [facility] [address] [place] [address] Dr. Ashlie Hills MCV (RBC) [Entitic vol] 92.1 fL Normal 81.0-99.0 [facility] Comment on above: Performed By: #### C VDAGS #### [facility] [address] [address] [address] Ashlie Hills PLT 123 103/ul Critically low 150-450 [facility] Comment on above: Performed By: #### C VDAGS #### [facility] [address] [address] [address] Ashlie Hills RBC 6.11 106/ul Critically high 4.20-5.40 [facility] Comment on above: Performed By: #### C VDAGS #### [facility] [address] [place] [address] Dr. Ashlie Hills WBC 16.4 103/ul Critically high 4.0-11.0 [facility] Comment on above: Performed By: #### C VDAGS #### [facility] [address] [place] [address] Dr. Ashlie Hills LIPID PROFILEon 03-03-2022 CHOL-HDL RATIO NORM SEE BELOW Normal [facility] Comment on above: Result Comment: 3.3 - 4.4 LOW RISK 4.4 - 7.1 AVERAGE RISK 7.1 - 11.0 MODERATE RISK >11.0 HIGH RISK Performed By: #### C VDAGS #### [facility] [address] [place] [address] Dr. Ashlie Hills Cholesterol [Mass/Vol] 159 mg/dL Normal <=200 [facility] Comment on above: Performed By: #### C VDAGS #### [facility] [address] [place] [address] Dr. Ashlie Hills Cholesterol in HDL [Mass/Vol] 40 mg/dL Normal 40-60 [facility] Comment on above: Performed By: #### C VDAGS #### [facility] [address] [place] [address] Dr. Ashlie Hills Cholesterol in LDL [Mass/Vol] 81.8 mg/dL Normal [facility] Comment on above: Performed By: #### C VDAGS #### [facility] [address] [place] [address] Dr. Ashlie Hills Cholesterol.total/Chol esterol in HDL [Mass ratio] 4.0 {ratio} Normal [facility] Comment on above: Performed By: #### C VDAGS #### [facility] [address] [address] [address] Ashlie Hills HDL NORMAL > or = 60 mg/dl - LOW CARDIOVASCULAR RISK <40 mg/dl - HIGH CARDIOVASCULAR RISK Normal [facility] Comment on above: Performed By: #### C VDAGS #### [facility] [address] [address] [address] Ashlie Hills LDL CALC NORMAL SEE BELOW Normal [facility] Comment on above: Result Comment: <100 mg/dl OPTIMAL 100 - 129 mg/dl NEAR OR ABOVE OPTIMAL 130 - 159 mg/dl BORDERLINE HIGH 160 - 189 mg/dl HIGH >190 mg/dl VERY HIGH Performed By: #### C VDAGS #### [facility] [address] [address] [address] Ashlie Hills Triglyceride [Mass/Vol] 186 mg/dL Critically high <=150 [facility] Comment on above: Performed By: #### C VDAGS #### [facility] [address] [address] [address] Ashlie Hills VLDL CALC 37.2 mg/dL Normal [facility] Comment on above: Performed By: #### C VDAGS #### [facility] [address] [address] [address] Ashlie Hills RENAL FUNCTION PANELon 03-03 Albumin [Mass/Vol] 3.1 g/dL Critically low 3.4-5.0 [facility] Comment on above: Performed By: #### C BC #### [facility] [address] [address] [address] Ashlie Hills Calcium [Mass/Vol] 9.2 mg/dL Normal 8.5-10.1 [facility] Comment on above: Performed By: #### C BC #### [facility] [address] [address] [address] Ashlie Hills Chloride [Moles/Vol] 102 mmol/L Normal 98-107 [facility] Comment on above: Performed By: #### C BC #### [facility] [address] [address] [address] Ashlie Hills CO2 [Moles/Vol] 31.9 mmol/L Normal 21.0-32.0 [facility] Comment on above: Performed By: #### C BC #### [facility] [address] [address] [address] Ashlie Hills Creatinine [Mass/Vol] 0.68 mg/dL Normal 0.55-1.02 [facility] Comment on above: Performed By: #### C BC #### [facility] [address] [address] [address] Ashlie Hills EGFR-AF CENTRAL AFRICAN >60 Normal >=60 [facility] Comment on above: Performed By: #### C BC #### [facility] [address] [place] [address] Dr. Ashlei Hills EGFR-NON AF CENTRAL AFRICAN >60 Normal >=60 [facility] Comment on above: Performed By: #### C BC #### [facility] [address] [place] [address] Dr. Ashlie Hills Glucose [Mass/Vol] 131 mg/dL Critically high 74-106 [facility] Comment on above: Performed By: #### C BC #### [facility] [address] [place] [address] Dr. Ashlie Hills Phosphate [Mass/Vol] 4.0 mg/dL Normal 2.6-4.7 [facility] Comment on above: Performed By: #### C BC #### [facility] [address] [place] [address] Dr. Ashlie Hills Potassium [Moles/Vol] 4.0 mmol/L Normal 3.5-5.1 [facility] Comment on above: Performed By: #### C BC #### [facility] [address] [place] [address] Dr. Ashlie Hills Sodium [Moles/Vol] 141 mmol/L Normal 136-145 [facility] Comment on above: Performed By: #### C BC #### [facility] [address] [address] [address] Ashlie Hills Urea nitrogen [Mass/Vol] 17.0 mg/dL Normal 7.0-18.0 [facility] Comment on above: Performed By: #### C BC #### [facility] [address] [place] [address] Dr. Ashlie Hills UA RANDOM W/MICROSCOPICon BACTERIA NONE SEEN Normal NONE SEEN [facility] Comment on above: Performed By: #### I NFLUAB #### [facility] [address] [place] [address] Dr. Ashlie Hills Bilirubin Ql (U) Negative Normal NEGATIVE [facility] Comment on above: Performed By: #### I NFLUAB #### [facility] [address] [place] [address] Dr. Ashlie Hills CAST NONE SEEN Normal NONE SEEN [facility] Comment on above: Performed By: #### I NFLUAB #### [facility] [address] [place] [address] Dr. Ashlie Hills Clarity (U) CLEAR Normal CLEAR [facility] Comment on above: Performed By: #### I NFLUAB #### [facility] [address] [place] [address] Dr. Ashlie Hills Color (U) YELLOW Normal YELLOW [facility] Comment on above: Performed By: #### I NFLUAB #### [facility] [address] [place] [address] Dr. Ashlie Hills Crystals LM Nom (Urine sed) NONE SEEN Normal NONE SEEN [facility] Comment on above: Performed By: #### I NFLUAB #### [facility] [address] [place] [address] Dr. Ashlie Hills Epithelial cells LM Ql (Urine sed) FEW Abnormal NONE SEEN /RARE [facility] Comment on above: Performed By: #### I NFLUAB #### [facility] [address] [place] [address] Dr. Ashlie Hills Glucose Ql (U) Negative Normal NEGATIVE [facility] [place] Comment on above: Performed By: #### I NFLUAB #### [facility] [address] [address] [address] Ashlie Hills Hemoglobin Ql (U) Negative Normal NEGATIVE [facility] Comment on above: Performed By: #### I NFLUAB #### [facility] [address] [address] [address] Ashlie Hills Ketones Ql (U) Negative Normal NEGATIVE [facility] [place] Comment on above: Performed By: #### I NFLUAB #### [facility] [address] [address] [address] Ashlie Hills LEUKOCYTES Negative Normal NEGATIVE [facility] Comment on above: Performed By: #### I NFLUAB #### [facility] [address] [place] [address] Dr. Ashlie Hills MUCOUS NONE SEEN Normal NONE SEEN [facility] Comment on above: Performed By: #### I NFLUAB #### [facility] [address] [place] [address] Dr. Ashlie Hills Nitrite Ql (U) Negative Normal NEGATIVE [facility] [place] Comment on above: Performed By: #### I NFLUAB #### [facility] [address] [place] [address] Dr. Ashlie Hills pH (U) 5.5 [pH] Normal 5-9 [facility] Comment on above: Performed By: #### I NFLUAB #### [facility] [address] [place] [address] Dr. Ashlie Hills RBC 0-2 Normal 0-2 [facility] Comment on above: Performed By: #### I NFLUAB #### [facility] [address] [place] [address] Dr. Ashlie Hills SPEC GRAVITY >=1.030 Abnormal 1.005-<=1.025 [facility] Comment on above: Performed By: #### I NFLUAB #### [facility] [address] [place] [address] Dr. Ashlie Hills UA PROTEIN 100 mg/dl Abnormal NEGATIVE/ TRACE [facility] Comment on above: Performed By: #### I NFLUAB #### [facility] [address] [place] [address] Dr. Ashlie Hills Urobilinogen Qn (U) 0.2 {Little'U}/dL Normal 0.2 - 1. 0 [facility] Comment on above: Performed By: #### I NFLUAB #### [facility] [address] [address] [address] Ashlie Hills WBC NONE SEEN Normal NONE SEEN [facility] Comment on above: Performed By: #### I NFLUAB #### [facility] [address] [address] [address] Ashlie Hills URIC ACID SERUMon 03-03-2022 Urate [Mass/Vol] 5.0 mg/dL Normal 2.6-6.0 [facility] Comment on above: Performed By: #### I NFLUAB #### [facility] [address] [place] [address] Dr. Ashlie Hills URINE T PROTEIN CREAT RATIOo n 03-03-2022 Protein (U) [Mass/Vol] 77.9 mg/dL Critically high <=12.0 [facility] Comment on above: Performed By: #### C VDAGS #### [facility] [address] [address] [address] Ashlie Hills UR PROT CREAT RAT 0.44 Normal [facility] Comment on above: Performed By: #### C VDAGS #### [facility] [address] [place] [address] Dr. Ashlie Hills URINE CREAT 175.15 mg/dL Normal 20.00-300.00 [facility] Comment on above: Performed By: #### C VDAGS #### [facility] [address] [place] [address] Dr. Ashlie Hills CULTURE URINEon 12-25-2021 CULTURE URINE Culture Observations: GREATER THAN TWO ORGANISMS PRESENT, HEAVILY MIXED. PLEASE RESUBMIT CLEAN CATCH MID-STREAM URINE IF CLINICALLY INDICATED. Normal [facility] Comment on above: Performed By: #### I NFLUAB #### [facility] [address] [place] [address] Dr. Ashlie Hills CBC AUTO DIFFon 12-24-2021 BASO # 0.1 103/ul Normal 0.0-0.1 [facility] Comment on above: Performed By: #### C BC #### [facility] [address] [place] [address] Dr. Ashlie Hills Basophils/100 WBC (Bld) 0.5 % Normal 0.2-2.0 [facility] Comment on above: Performed By: #### C BC #### [facility] [address] [place] [address] Dr. Ashlie Hills EO # 0.4 103/ul Normal 0.0-0.7 [facility] Comment on above: Performed By: #### C BC #### [facility] [address] [place] [address] Dr. Ashlie Hills Eosinophils/100 WBC (Bld) 2.4 % Normal 0.9-7.0 [facility] Comment on above: Performed By: #### C BC #### [facility] [address] [place] [address] Dr. Ashlie Hills Erythrocyte distribution width (RBC) [Ratio] 14.1 % Normal 11.0-15.0 [facility] Comment on above: Performed By: #### C BC #### [facility] [address] [place] [address] Dr. Ashlie Hills Hematocrit (Bld) [Volume fraction] 55.9 % Critically high 36.0-48.0 [facility] Comment on above: Performed By: #### C BC #### [facility] [address] [place] [address] Dr. Ashlie Hills Hemoglobin (Bld) [Mass/Vol] 17.9 g/dL Critically high 12.0-16.0 [facility] Comment on above: Performed By: #### C BC #### [facility] [address] [place] [address] Dr. Ashlie Hills IG # 0.06 10e3/ul Critically high 0.00-0.03 [facility] Comment on above: Performed By: #### C BC #### [facility] [address] [place] [address] Dr. Ashlie Hills IG % 0.4 % Normal 0.0-0.5 [facility] Comment on above: Performed By: #### C BC #### [facility] [address] [place] [address] Dr. Ashlie Hills LYMPH # 5.8 103/ul Critically high 1.2-3.8 [facility] Comment on above: Performed By: #### C BC #### [facility] [address] [place] [address] Dr. Ashlie Hills Lymphocytes/100 WBC (Bld) 35.4 % Normal 20.5-60.0 [facility] Comment on above: Performed By: #### C BC #### [facility] [address] [place] [address] Dr. Ashlie Hills MANUAL DIFF REQ NO Normal [facility] Comment on above: Performed By: #### C BC #### [facility] [address] [place] [address] Dr. Ashlie Hills MCH (RBC) [Entitic mass] 29.4 pg Normal 26.7-34.0 [facility] Comment on above: Performed By: #### C BC #### [facility] [address] [place] [address] Dr. Ashlie Hills MCHC (RBC) [Mass/Vol] 32.0 g/dL Normal 29.9-35.2 [facility] Comment on above: Performed By: #### C BC #### [facility] [address] [place] [address] Dr. Ashlie Hills MCV (RBC) [Entitic vol] 91.8 fL Normal 81.0-99.0 [facility] Comment on above: Performed By: #### C BC #### [facility] [address] [place] [address] Dr. Ashlie Hills MONO # 0.8 103/ul Normal 0.3-0.8 [facility] Comment on above: Performed By: #### C BC #### [facility] [address] [place] [address] Dr. Ashlie Hills Monocytes/100 WBC (Bld) 4.8 % Normal 1.7-12.0 [facility] Comment on above: Performed By: #### C BC #### [facility] [address] [address] [address] Ashlie Hills NEUT # 9.3 103/ul Critically high 1.4-6.5 [facility] Comment on above: Performed By: #### C BC #### [facility] [address] [address] [address] Ashlie Hills Neutrophils/100 WBC (Bld) 56.5 % Normal 43.0-75.0 [facility] Comment on above: Performed By: #### C BC #### [facility] [address] [address] [address] Ashlie Hills Platelet mean volume (Bld) [Entitic vol] 12.9 fL Normal 9.5-13.5 [facility] Comment on above: Performed By: #### C BC #### [facility] [address] [address] [address] Ashlie Hills PLT 127 103/ul Critically low 150-450 [facility] Comment on above: Performed By: #### C BC #### [facility] [address] [address] [address] Ashlie Hills RBC 6.09 106/ul Critically high 4.20-5.40 [facility] Comment on above: Performed By: #### C BC #### [facility] [address] [place] [address] Dr. Ashlie Hills WBC 16.4 103/ul Critically high 4.0-11.0 [facility] Comment on above: Performed By: #### C BC #### [facility] [address] [place] [address] ABD/PELVIS WO CONon [...] hip degenerative change. Normal [facility] URINE PROFILEon 2 Bilirubin Ql (U) Negative Normal NEGATIVE [facility] Comment on above: Performed By: #### E RUR, UMICRO #### [facility] [address] [place] [address] Dr. Ashlie Hills Clarity (U) CLEAR Normal CLEAR [facility] Comment on above: Performed By: #### E RUR, UMICRO #### [facility] [address] [place] [address] Dr. Ashlie Hills Color (U) DK. ORANGE Abnormal YELLOW [facility] Comment on above: Performed By: #### E RUR, UMICRO #### [facility] [address] [place] [address] Dr. Ashlie HOBBS A micrscopic examination will be performed if indicated. Normal [facility] Comment on above: Performed By: #### E RUR, UMICRO #### [facility] [address] [place] [address] Dr. Ashlie Hills Glucose Ql (U) 250 mg/dl Abnormal NEGATIVE [facility] Comment on above: Performed By: #### E RUR, UMICRO #### [facility] [address] [place] [address] Dr. Ashlie Hills Hemoglobin Ql (U) Negative Normal NEGATIVE [facility] Comment on above: Performed By: #### E RUR, UMICRO #### [facility] [address] [place] [address] Dr. Ashlie Hills Ketones Ql (U) Negative Normal NEGATIVE [facility] [place] Comment on above: Performed By: #### E RUR, UMICRO #### [facility] [address] [place] [address] Dr. Ashlie Hills LEUKOCYTES Negative Normal NEGATIVE [facility] Comment on above: Performed By: #### E RUR, UMICRO #### [facility] [address] [place] [address] Dr. Ashlie Hills Nitrite Ql (U) Negative Normal NEGATIVE [facility] Comment on above: Performed By: #### E RUR, UMICRO #### [facility] [address] [place] [address] Dr. Ashile Hills pH (U) 5.0 [pH] Normal 5-9 [facility] Comment on above: Performed By: #### MADELINE DIAZRO #### [facility] [address] [place] [address] Dr. Ashlie Hills Protein (U) [Mass/Vol] 100 mg/dL Abnormal NEGAT YURY/ TRACE [facility] Comment on above: Performed By: #### Tracey LYMAN, UMICRO #### [facility] [address] [place] [address] Dr. Ashlie Hills SPEC GRAVITY >=1.030 Abnormal 1.005-<=1.025 [facility] Comment on above: Performed By: #### Tracey LYMAN, MADELINERO #### [facility] [address] [place] [address] Dr. Ashlie Hills UR MICRO IND INDICATED Normal [facility] Comment on above: Performed By: #### Tracey LYMAN UMHARRIETRO #### [facility] [address] [place] [address] Dr. Ashlie Hills Urobilinogen Qn (U) 1.0 {Little'U}/dL Normal 0.2 - 1. 0 [facility] Comment on above: Performed By: #### Tracey LYMAN, MADELINERO #### [facility] [address] [place] [address] Dr. Ashlie Hills PROF CHEM 8 (BAS METB)on Anion gap [Moles/Vol] 12.1 mmol/L Normal [facility] Comment on above: Performed By: #### I NFLUAB #### [facility] [address] [place] [address] Dr. Ashlie Hills Calcium [Mass/Vol] 9.0 mg/dL Normal 8.5-10.1 [facility] Comment on above: Performed By: #### I NFLUAB #### [facility] [address] [place] [address] Dr. Ashlie Hills Chloride [Moles/Vol] 101 mmol/L Normal 98-107 [facility] Comment on above: Performed By: #### I NFLUAB #### [facility] [address] [address] [address] Ashlie Hills CO2 [Moles/Vol] 29.1 mmol/L Normal 21.0-32.0 [facility] Comment on above: Performed By: #### I NFLUAB #### [facility] [address] [address] [address] Ashlie Hills Creatinine [Mass/Vol] 0.86 mg/dL Normal 0.55-1.02 [facility] Comment on above: Performed By: #### I NFLUAB #### [facility] [address] [place] [address] Dr. Ashlie Hills EGFR-AF CENTRAL AFRICAN >60 Normal >=60 [facility] Comment on above: Performed By: #### I NFLUAB #### [facility] [address] [address] [address] Ashlie Hills EGFR-NON AF CENTRAL AFRICAN >60 Normal >=60 [facility] Comment on above: Performed By: #### I NFLUAB #### [facility] [address] [address] [address] Ashlie Hills Glucose [Mass/Vol] 236 mg/dL Critically high 74-106 [facility] Comment on above: Performed By: #### I NFLUAB #### [facility] [address] [address] [address] Ashlie Hills Potassium [Moles/Vol] 4.2 mmol/L Normal 3.5-5.1 [facility] Comment on above: Performed By: #### I NFLUAB #### [facility] [address] [address] [address] Ashlie Hills Sodium [Moles/Vol] 138 mmol/L Normal 136-145 [facility] Comment on above: Performed By: #### I NFLUAB #### [facility] [address] [address] [address] Ashlie Hills Urea nitrogen [Mass/Vol] 11.0 mg/dL Normal 7.0-18.0 [facility] Comment on above: Performed By: #### I NFLUAB #### [facility] [address] [place] [address] Dr. Ashlie Hills Urea nitrogen/Creatinine [Mass ratio] 12.8 mg/mg Normal [facility] Comment on above: Performed By: #### I NFLUAB #### [facility] [address] [place] [address] Dr. Ashlie Hills URINE MICROSCOPIC ONLYon BACTERIA SMALL Abnormal NONE SEEN [facility] Comment on above: Performed By: #### E RUR, UMICRO #### [facility] [address] [place] [address] Dr. Ashlie Hills Bacteria identified Cx Nom (U) INDICATED Normal [facility] Comment on above: Performed By: #### E RUR, UMICRO #### [facility] [address] [place] [address] Dr. Ashlie Hills CAST NONE SEEN Normal NONE SEEN [facility] Comment on above: Performed By: #### E RUR, UMICRO #### [facility] [address] [place] [address] Dr. Ashlie Hills Crystals LM Nom (Urine sed) NONE SEEN Normal NONE SEEN [facility] Comment on above: Performed By: #### E RUR, UMICRO #### [facility] [address] [place] [address] Dr. Ashlie Hills Epithelial cells LM Ql (Urine sed) MODERATE Abnormal NONE SEEN /RARE [facility] Comment on above: Performed By: #### E RUR, UMICRO #### [facility] [address] [place] [address] Dr. Ashlie Hills MUCOUS NONE SEEN Normal NONE SEEN [facility] Comment on above: Performed By: #### E RUR, UMICRO #### [facility] [address] [place] [address] Dr. Ashlie Hills RBC 0-2 Normal 0-2 [facility] Comment on above: Performed By: #### E NURA, UMICRO #### [facility] [address] [place] [address] Dr. Ashlie Hills WBC 0-2 Abnormal NONE SEEN [facility] Comment on above: Performed By: #### E EVONNE LYMAN #### [facility] [address] [address] [address] Ashlie Hills YEAST PRESENT Abnormal NONE SEEN [facility] Comment on above: Performed By: #### E EVONNE LYMAN #### [facility] [address] [address] [address] Ashlie Hills HIP RIGHT 1 OR 2 VWS WITH PE LVISon 07-20-2020 HIP RIGHT 1 OR 2 VWS WITH PELVIS [facility] Department of Radiology [address] [place] [address] Patient Name: MITZI MACIAS : 1970 Sex: F Age: Race: White Pt. Location: Patient Status: O Ordered Date: 07/20/2020 1:45:00 PM Completed Date: 07/20/2020 01:57 PM Requesting Provider: LIZ EISENBERG Attending Provider: LIZ EISENBERG Report Copy To: MCKAYLA BLAS Signs & Symptoms: M25.551 Pain in right hip I10 History: [place] Comments: evaluate Exam: HIP RIGHT 1 OR [...] MRI. Electronically signed: Pipo Acevedo. Transcribed by: [email or web address], User Resident: Electronically Signed by: PIPO ACEVEDO @ 07/20/2020 03:45 PM Normal [facility] Comment on above: Order Comment: evalu ate Vital Signs Date Time Vital Sign Value Performing Clinician Facility 01-29-2025 09:48-0400 Body height 170.2 cm Rain Souza MD Work Phone: [facility] 01-29-2025 09:48-0400 Body mass index (BMI) [Ratio] 56.38 kg/m2 Rain Souza MD Work Phone: [facility] 01-29-2025 09:48-0400 Body weight 163.29 kg Rain Souza MD Work Phone: [facility] 01-29-2025 09:48-0400 Diastolic blood pressure 70 mm[Hg] Rain Souza MD Work Phone: [facility] 01-29-2025 09:48-0400 Heart rate 72 /min Rain Souza MD Work Phone: [facility] 01-29-2025 09:48-0400 Respiratory rate 16 /min Rain Souza MD Work Phone: [facility] 01-29-2025 09:48-0400 SaO2% (BldA) [Mass fraction] 84 % Rain Souza MD Work Phone: [facility] 01-29-2025 09:48-0400 Systolic blood pressure 130 mm[Hg] Rain Souza MD Work Phone: [facility] 01-26-2025 18:11-0400 Body mass index (BMI) [Ratio] 58.64 kg/m2 Mckayla Blas NP Work Phone: [facility] 01-26-2025 18:11-0400 Body temperature 98.49 [degF] Mckayla Aichholz [employer] Work Phone: [facility] 01-26-2025 18:11-0400 Body weight 169.83 kg Mckayla Aichholz [employer] Work Phone: [facility] 01-26-2025 18:11-0400 Diastolic blood pressure 82 mm[Hg] Mckayla Aichholz [employer] Work Phone: [facility] 01-26-2025 18:11-0400 Heart rate 81 /min Mckayla Aichholz [employer] Work Phone: [facility] 01-26-2025 18:11-0400 Respiratory rate 20 /min Mckayla Aichholz [employer] Work Phone: [facility] 01-26-2025 18:11-0400 SaO2% (BldA) [Mass fraction] 90 % Mckayla Aichholz [employer] Work Phone: [facility] 01-26-2025 18:11-0400 Systolic blood pressure 126 mm[Hg] Mckayla Aichholz [employer] Work Phone: [facility] 12-09-2024 10:19-0400 Body temperature 98.01 [degF] Mckayla Aichholz [employer] Work Phone: [facility] 12-09-2024 10:19-0400 Diastolic blood pressure 76 mm[Hg] Mckayla Aichholz [employer] Work Phone: [facility] 12-09-2024 10:19-0400 Heart rate 71 /min Mckayla Aichholz [employer] Work Phone: [facility] 12-09-2024 10:19-0400 Respiratory rate 20 /min Mckayla Aichholz [employer] Work Phone: [facility] 12-09-2024 10:19-0400 SaO2% (BldA) [Mass fraction] 88 % Mckayla Aichholz [employer] Work Phone: [facility] 12-09-2024 10:19-0400 Systolic blood pressure 150 mm[Hg] Mckayla Blas [employer] Work Phone: [facility] 10-27-2024 14:11-0400 Body height 170.2 cm Mckayla Blas [employer] Work Phone: [facility] 10-27-2024 14:11-0400 Body mass index (BMI) [Ratio] 56.51 kg/m2 Mckaylajuvenal Rosenbergz [employer] Work Phone: [facility] 10-27-2024 14:11-0400 Body temperature 98.71 [degF] Mckayla Rosenbergz [employer] Work Phone: [facility] 10-27-2024 14:11-0400 Body weight 163.66 kg Mckayla Blas [employer] Work Phone: [facility] 10-27-2024 14:11-0400 Diastolic blood pressure 74 mm[Hg] Mckayla Rosenbergz [employer] Work Phone: [facility] 10-27-2024 14:11-0400 Heart rate 75 /min Mckaylajuvenal Rosenbergz [employer] Work Phone: [facility] 10-27-2024 14:11-0400 Respiratory rate 18 /min Mckaylajuvenal Blas [employer] Work Phone: [facility] 10-27-2024 14:11-0400 SaO2% (BldA) [Mass fraction] 90 % Mckaylajuvenal Rosenbergz [employer] Work Phone: [facility] 10-27-2024 14:11-0400 Systolic blood pressure 132 mm[Hg] Mckayla Rosenbergz [employer] Work Phone: [facility] 10-08-2024 11:040 Body height 170.2 cm Rain Souza MD Work Phone: [facility] 10-08-2024 11:21-0400 Body mass index (BMI) [Ratio] 55.91 kg/m2 Rain Souza MD Work Phone: [facility] 10-08-2024 11:21-0400 Body weight 161.93 kg Rain Souza MD Work Phone: [facility] 10-08-2024 11:21-0400 Diastolic blood pressure 70 mm[Hg] Rain Souza MD Work Phone: [facility] 10-08-2024 11:21-0400 Heart rate 70 /min Rain Souza MD Work Phone: [facility] 10-08-2024 11:21-0400 Respiratory rate 16 /min Rain Souza MD Work Phone: [facility] 10-08-2024 11:21-0400 SaO2% (BldA) [Mass fraction] 91 % Rain Souza MD Work Phone: [facility] 10-08-2024 11:21-0400 Systolic blood pressure 130 mm[Hg] Rain Souza MD Work Phone: [facility] 08-27-2024 17:44-0500 Body mass index (BMI) [Ratio] 57.31 kg/m2 Mckayla Wan [employer] Work Phone: [facility] 08-27-2024 17:44-0500 Body temperature 98.01 [degF] Mckayla Wan [employer] Work Phone: [facility] 08-27-2024 17:44-0500 Body weight 165.97 kg Mckayla Wan [employer] Work Phone: [facility] 08-27-2024 17:44-0500 Diastolic blood pressure 76 mm[Hg] Mckayla Wan [employer] Work Phone: [facility] 08-27-2024 17:44-0500 Heart rate 83 /min Mckayla Wan [employer] Work Phone: [facility] 08-27-2024 17:44-0500 Respiratory rate 18 /min Mckayla Wan [employer] Work Phone: [facility] 02-19-2025 17:44-0500 SaO2% (BldA) [Mass fraction] 91 % Mckayla Sowdona [employer] Work Phone: [facility] 08-27-2024 17:44-0500 Systolic blood pressure 134 mm[Hg] Mckayla Patriciajodie [employer] Work Phone: [facility] 06-11-2024 10:00-0500 Blood Pressure Location Elbert ARAUZ [facility] 06-11-2024 10:00-0500 Diastolic blood pressure 68 mm[Hg] Elbert ARAUZ [facility] 06-11-2024 10:00-0500 Heart rate 76 /min Elbert ARAUZ [facility] 06-11-2024 10:00-0500 Systolic blood pressure 132 mm[Hg] Elbert ARAUZ [facility] 05-27-2024 10:20-0500 Body height 170.2 cm Rain Souza MD Work Phone: [facility] 05-27-2024 10:20-0500 Body mass index (BMI) [Ratio] 56.7 kg/m2 Rain Souza MD Work Phone: [facility] 05-27-2024 10:20-0500 Body weight 164.2 kg Rain Souza MD Work Phone: [facility] 05-27-2024 10:20-0500 Diastolic blood pressure 66 mm[Hg] Rain Souza MD Work Phone: [facility] 05-27-2024 10:20-0500 Heart rate 72 /min Rain Souza MD Work Phone: [facility] 05-27-2024 10:20-0500 Respiratory rate 16 /min Rain Souza MD Work Phone: [facility] 05-27-2024 10:20-0500 Systolic blood pressure 128 mm[Hg] Rain Souza MD Work Phone: [facility] 04-14-2024 10:27-0400 Body height 165.1 cm Mckayla Sowdona [employer] Work Phone: [facility] 04-14-2024 10:27-0400 Body mass index (BMI) [Ratio] 61.01 kg/m2 Mckayla Wan [employer] Work Phone: [facility] 04-14-2024 10:27-0400 Body temperature 98.49 [degF] Mckayla Wan [employer] Work Phone: [facility] 04-14-2024 10:27-0400 Body weight 166.29 kg Mckayla Wan [employer] Work Phone: [facility] 04-14-2024 10:27-0400 Diastolic blood pressure 80 mm[Hg] Mckayla Chetz [employer] Work Phone: [facility] 04-14-2024 10:27-0400 Heart rate 77 /min Mckayla Chetz [employer] Work Phone: [facility] 04-14-2024 10:27-0400 Respiratory rate 19 /min Mckayla Chetz [employer] Work Phone: [facility] 04-14-2024 10:27-0400 SaO2% (BldA) [Mass fraction] 92 % Mckayla Chetz [employer] Work Phone: [facility] 04-14-2024 10:27-0400 Systolic blood pressure 116 mm[Hg] Mckayla Chetz [employer] Work Phone: [facility] 03-08-2022 15:00-0400 Body height 170.18 cm Stephanie Tico Other [facility] [employer] Other 03-08-2022 15:00-0400 Body temperature 97.6 [degF] Stephanie Tico Other [employer] Other 03-08-2022 15:00-0400 Diastolic blood pressure 72 mm[Hg] Stephanie Tico Other [employer] Other 03-08-2022 15:00-0400 Respiratory rate 20 /min Stephanie Tico Other [employer] Other 03-08-2022 15:00-0400 SaO2% (BldA) [Mass fraction] 91 % Stephanie Tico Other [employer] Other 03-08-2022 15:00-0400 Systolic blood pressure 131 mm[Hg] Stephanie Tico Other [employer] Other 02-20-2022 09:20-0400 Body height 170.18 cm Stephanie Tico Other [employer] Other 02-20-2022 09:20-0400 Body temperature 96.5 [degF] Stephanie Tico Other [employer] Other 02-20-2022 09:20-0400 Diastolic blood pressure 69 mm[Hg] Stephanie Tico Other [employer] Other 02-20-2022 09:20-0400 Respiratory rate 20 /min Stephanie Tico Other [employer] Other 02-20-2022 09:20-0400 SaO2% (BldA) [Mass fraction] 91 % Stephanie Tico Other [employer] Other 02-20-2022 09:20-0400 Systolic blood pressure 129 mm[Hg] Stephanie Lizamadir Other [employer] Other 02-06-2022 10:24-0400 Blood Pressure Location Elbert ARAUZ [facility] 02-06-2022 10:24-0400 Diastolic blood pressure 76 mm[Hg] Elbert ARAUZ [facility] 02-06-2022 10:24-0400 Heart rate 70 /min Elbert ARAUZ [facility] 02-06-2022 10:24-0400 Respiratory rate 16 /min Elbert ARAUZ [facility] [employer] 02-06-2022 10:24-0400 Systolic blood pressure 134 mm[Hg] Elbert ARAUZ [facility] Encounters Encounter Date Encounter Type Care Provider Facility Start: 01-29-2025 End: 01-29-2025 Bamboo flowsheet Rain Souza MD Work Phone: [facility] Start: 01-29-2025 End: 01-29-2025 Bamboo flowsheet Rain Souza MD Work Phone: [facility] Start: 01-29-2025 End: 01-29-2025 Clinisync Result Encounter Generic External Data Provider [facility] External Department Unsolicited Start: 01-29-2025 End: 01-29-2025 ambulatory RAIN SOUZA Not Available Start: 01-29-2025 End: 01-29-2025 Office outpatient visit 25 minutes Rain Souza MD Work Phone: [facility] Comment on above: Encounter for dietar y consultation (Primary Dx); Type 2 diabetes mellitus with hyperglycemia, with long-term current use of insulin (HCC); Vitamin D deficiency; Primary hypertension ; Insulin long-term use (HCC); Hyperlipemia, mixed ; Microalbuminuria; Class 3 severe obesity due to excess calories with serious comorbidity and body mass index (BMI) of 50.0 to 59.9 in adult ([facility]) Start: 01-26-2025 End: 01-26-2025 ambulatory MCKAYLA BLAS Not Available Start: 01-26-2025 End: 01-26-2025 Patient encounter procedure Mckayla Blas NP Work Phone: [facility] Comment on above: Encounter for [...] Morbid (severe) obesity due to excess calories ([facility]) Start: 01-06-2025 End: 01-06-2025 ambulatory [facility] Start: 12-18-2024 End: 12-19-2024 Refill Mckayla Blas NP Work Phone: [facility] Comment on above: Hyperlipidemia, unsp ecified ; Tobacco user; Encounter for smoking cessation counseling Start: 12-09-2024 End: 12-09-2024 Bamboo flowsheet Mckayla Blas NP Work Phone: [facility] Start: 12-09-2024 End: 12-09-2024 Bamboo flowsheet Mckayla Blas [employer] Work Phone: [facility] Start: 12-09-2024 End: 12-09-2024 ambulatory MCKAYLA AICHHOLZ Not Available Start: 12-09-2024 End: 12-09-2024 Office outpatient visit 25 minutes Mckayla Blas [employer] Work Phone: [facility] Comment on above: Cellulitis of [...] Office outpatient visit 25 minutes Mckayla Blas [employer] Work Phone: [facility] Comment on above: Primary hypertension [...] 10-21-2024 Refill Mckayla Blas NP Work Phone: [facility] Comment on above: Chronic obstructive pulmonary disease, unspecified Start: 10-08-2024 End: 10-08-2024 Clinisync Result Encounter [facility]ckay[facility] Blas NP [facility] Unsolicited Start: 10-08-2024 End: 10-08-2024 Clinisync Result Encounter Mckayla Wan SCHAEFER Work Phone[facility] Unsolicited Start: 10-08-2024 End: 10-08-2024 Office outpatient visit 25 minutes Rain Souza MD Work Phone: [facility] Comment on above: Type 2 [...] 25 minutes Mckayla Blas NP Work Phone: [facility] Comment on above: Anxiety and [...] complication, with long-term current use of insulin ([facility]); Tobacco user; Mixed hyperlipidemia ([facility]); Gout, unspecified cause, unspecified chronicity, unspecified site; Vitamin deficiency; Gastro-esophageal reflux disease without esophagitis; Edema, unspecified; Edema; Hyperlipidemia, unspecified ([facility]); Encounter for smoking cessation counseling; Venous ulcer of right leg ([facility]); Antibiotic-induced yeast infection Start: 08-27-2024 End: 08-27-2024 ambulatory MCKAYLA BLAS Not Available Start: 08-27-2024 End: 08-27-2024 Clinisync Result Encounter Generic External Data Provider [facility] External Department Unsolicited Start: 08-27-2024 End: 08-27-2024 Clinisync Result Encounter Generic External Data Provider [facility] External Department Unsolicited Start: 08-08-2024 End: 08-08-2024 ambulatory [facility] Start: 07-17-2024 End: 07-17-2024 Refill Mckayla Blas NP Work Phone: [facility] Start: 07-14-2024 End: 07-14-2024 Office outpatient visit 25 minutes Mckayla Blas NP Work Phone: [facility] Comment on above: Primary hypertension ([facility]) (Primary Dx); Diabetic polyneuropathy associated with type 2 diabetes mellitus ([facility]); Pulmonary emphysema, unspecified emphysema type ([facility]); Critical limb ischemia of right lower extremity ([facility]); PAD (peripheral artery disease) ([facility]); Gastroesophageal reflux disease, unspecified whether esophagitis present; Bilateral lower extremity edema; Venous ulcer of right leg ([facility]); Type 2 diabetes mellitus with complication, with long-term current use of insulin ([facility]); Tobacco user; Encounter for smoking cessation counseling; Kidney stone; Adrenal mass 1 cm to 4 cm in diameter ([facility]); Radiculopathy, lumbar region; Non-seasonal allergic rhinitis, unspecified trigger; Type 2 diabetes mellitus with unspecified complications ([facility]) Start: 07-14-2024 End: 07-14-2024 ambulatory MCKAYLA AICHHOLZ Not Available Start: 07-05-2024 End: 07-07-2024 Refill Mckayla Aichholz [employer] Work Phone: [facility] Comment on above: Bilateral lower extr emity edema Start: 06-11-2024 ambulatory Elbert ARAUZ [place] ty:SHEA [place] Start: 06-11-2024 End: 06-11-2024 Patient encounter procedure Elbert ARAUZ [facility] [place] Start: 05-27-2024 End: 05-27-2024 Bambolalo flowsheet Rain Souza MD Work Phone: [facility] Start: 05-27-2024 End: 05-27-2024 Bamboo flowsheet Rain Souza MD Work Phone: [facility] Start: 05-27-2024 End: 05-27-2024 ambulatory RAIN SOUZA Not Available Start: 05-27-2024 End: 05-27-2024 Office outpatient visit 25 minutes Rain Souza MD Work Phone: [facility] Comment on above: Type 2 diabetes asiya itus with hyperglycemia, with long-term current use of insulin ([facility]) (Primary Dx); Encounter for dietary consultation; Vitamin D deficiency; Primary hypertension ([facility]); Insulin long-term use (CMS/[facility]); Hyperlipemia, mixed (CMS/HCC); Microalbuminuria; Class [...] Unsolicited Start: 05-08-2024 ambulatory SARAH Wilkerson ty:[facility] [place] Start: 04-14-2024 End: 04-14-2024 Bamboo flowsheet Mckayla Aichholz [employer] Work Phone: [facility] Start: 04-14-2024 End: 04-14-2024 Bamboo flowsheet Mckayla Aichholz [employer] Work Phone: [facility] Start: 04-14-2024 End: 04-14-2024 Office outpatient visit 25 minutes Mckayla Harshadholz [employer] Work Phone: [facility] Comment on above: Primary hypertension (CMS/HCC) [...] Start: 04-05-2024 End: 04-06-2024 Refill Mckayla Aichholz [employer] Work Phone: [facility] Comment on above: Hyperlipidemia, unsp ecified (CMS/HCC); Bilateral lower extremity edema Vitamin D deficiency , unspecified Start: 01-17-2024 Patient encounter procedure Rain Souza MD Work Phone: [facility] Start: 08-17-2023 Refill Mckayla Aichholz [employer] Work Phone: [facility] Comment on above: Vaginal yeast infect ion (Primary Dx) Start: 08-14-2023 Refill Mckayla Aichholz [employer] Work Phone: [facility] Comment on above: Type 2 [...] encounter procedure SARAH VEGA [facility] Start: 10-05-2022 End: 10-05-2022 ambulatory MARIANO BLAKE [...] 03-08-2022 End: 03-08-2022 ambulatory Stephanie Tico Other [employer] Other Start: 03-08-2022 Office outpatient vi sit 15 minutes Stephanie Tico [facility] Start: 03-03-2022 End: 03-04-2022 ambulatory DIRECTOR OPERATING ROOM MCKAYLA BLAS Facility:[facility] Start: 02-20-2022 End: 02-20-2022 ambulatory Stephanie Tico Other [employer] Other Start: 02-20-2022 Office outpatient ne w 45 minutes Stephanie Tico [facility] Start: 02-06-2022 End: 02-06-2022 Patient encounter procedure Elbert ARAUZ [facility] Start: 01-19-2022 End: 01-20-2022 ambulatory GIL VALENZUELA . Facility:[facility] Start: 12-24-2021 End: 12-24-2021 ambulatory OLE ASHLEY Facility: Start: 08-26-2020 End: 09-10-2020 Patient encounter procedure MARY GABINOLOS Facility:[facility] Start: 10-30-2019 End: 10-30-2019 Emergency department patient visit [facility] Start: 10-30-2019 End: 10-30-2019 Emergency department patient visit [facility] Emergency Department Start: 11-02-2016 Preoperative state Stephanie Tico Other [employer] Other Procedures Date Procedure Procedure Detail Performing [...] Rain Souza MD Work Phone: Start: 10-08-2024 [facility] UA (CLEAN/CATCH) MICROSCOPIC IF INDICATE Mckayla Blas NP Work Phone: Start: 08-27-2024 ALL CBC WITH AUTO DIFF Generic External Data Provider Start: 05-27-2024 Gluc bld gluc mntr d ev cleared fda spec home use Rain Souza MD Work Phone: Start: 05-12-2024 [facility] CREATININE Generic External Data Provider Start: [...] procedure 02/01/2026 6:00 PM EDT Office Visit [facility] [address] [place] [address] Mckayla Blas NP [address] [place] [address] [facility] Start: 01-26-2026 Medicare Annual Wellness (AWV) Medicare Annual Wellness (AWV) [facility] Start: 10-08-2025 Urine screening for protein Diabetes: Urine Protein Screening [facility] Start: 08-03-2025 Screening for malignant neoplasm of colon [facility] Start: 07-14-2025 Glaucoma screening Diabetes: R etinopathy Screening [facility] Start: 05-28-2025 End: 05-28-2025 Patient encounter procedure 05/28/2025 10:30 AM EST Office Visit [facility] [address] [place] [address] Rain Souza MD [address] [place] [address] [facility] Start: 05-13-2025 Glaucoma screening Diabetes: R etinopathy Screening [facility] Start: 05-01-2025 Hemoglobin A1c measurement Diabetes: Hemoglobin A1C [facility] Start: 04-29-2025 End: 04-29-2025 Patient encounter procedure 04/29/2025 6:00 PM EDT Office Visit [facility] [address] [place] [id number] Mckayla Blas, [employer] [address] [place] [phone] [facility] Start: 03-09-2025 Influenza vaccination [facility] Start: 01-28-2025 End: 01-28-2025 Patient encounter procedure 01/28/2025 10:50 AM EDT Office Visit [facility] [address] [place] [address] Rain Souza MD [address] [place] [address] [facility] Start: 01-26-2025 End: 01-26-2025 Patient encounter procedure 01/26/2025 6:00 PM EDT Office Visit [facility] [address] [place] [phone] Mckayla Blas, [employer] [address] [place] [phone] [facility] Start: 01-16-2025 Medicare Annual Wellness (AWV) Medicare Annual Wellness (AWV) [facility] Start: 01-07-2025 Hemoglobin A1c measurement Diabetes: Hemoglobin A1C [facility] Start: 12-15-2024 End: 12-27-2025 MG Breast - bilateral Screening Bilateral screening mammogram Imaging Routine Encounter for screening mammogram for malignant neoplasm of breast Expected: 12/15/2024 (Approximate), Expires: 12/27/2025 [facility] Work Phone: Comment on above: Expected: 12/15/2024 (Approximate), Expires: 12/27/2025 Start: 12-13-2024 Screening for malignant neoplasm of breast Mammogram [facility] Start: 11-11-2024 Urine screening for protein Diabetes: Urine Protein Screening [facility] Start: 10-27-2024 End: 10-27-2024 Patient encounter procedure 10/27/2024 2:00 PM EDT Office Visit [facility] [address] [place] [phone] Mckayla Blas, SILVANO [address] [place] [phone] [facility] Start: 10-08-2024 End: 10-08-2024 Patient encounter procedure 10/08/2024 11:20 AM EDT Office Visit [facility] [address] [place] [address] Rain Souza MD [address] [place] [address] [facility] Start: 08-27-2024 End: 08-27-2024 Patient encounter procedure 08/27/2024 5:30 PM EST Office Visit [facility] [address] [place] [phone] Mckayla Blas, SILVANO [address] [place] [phone] [facility] Start: 08-27-2024 End: 08-27-2025 25-hydroxyvitamin D3 [Mass/volume] in Serum or Plasma Vitamin D 25 hydroxy Lab Routine Vitamin deficiency Expected: 08/27/2024 (Approximate), Expires: 08/27/2025 [facility] Comment on above: Expected: 08/27/2024 (Approximate), Expires: 08/27/2025 Start: 08-27-2024 Hemoglobin A1c measurement Diabetes: Hemoglobin A1C [facility] Start: 08-27-2024 End: 08-27-2025 Hepatic function 2000 panel - Serum or Plasma Hepatic function panel Lab Routine Hyperlipidemia, unspecified (CMS/HCC) Expected: 08/27/2024 (Approximate), Expires: 08/27/2025 [facility] Comment on above: Expected: 08/27/2024 (Approximate), Expires: 08/27/2025 Start: 08-27-2024 End: 08-27-2025 Lipid 1996 panel - Serum or Plasma Lipid panel Lab Routine Mixed hyperlipidemia (CMS/HCC) Expected: 08/27/2024 (Approximate), Expires: 08/27/2025 [facility] Work Phone: Comment on above: Expected: 08/27/2024 (Approximate), Expires: 08/27/2025 Start: 08-27-2024 End: 08-27-2025 Microalbumin/Creatini ne panel in random Urine Microalbumin / creatinine, urine ratio Lab Routine Primary hypertension (CMS/HCC) Type 2 diabetes mellitus with complication, with long-term current use of insulin ([facility]/HCC) Expected: 08/27/2024 (Approximate), Expires: 08/27/2025 [facility] Comment on above: Expected: 08/27/2024 (Approximate), Expires: 08/27/2025 Start: 08-27-2024 End: 08-27-2025 Urate [Mass/volume] in Serum or Plasma Uric acid Lab Routine Gout, unspecified cause, unspecified chronicity, unspecified site Expected: 08/27/2024 (Approximate), Expires: 08/27/2025 [facility] Comment on above: Expected: 08/27/2024 (Approximate), Expires: 08/27/2025 Start: 08-27-2024 End: 08-27-2025 Urinalysis complete panel - Urine Urinalysis with reflex microscopic (clean catch) Lab Routine Primary hypertension ([facility]) Type 2 diabetes mellitus with complication, with long-term current use of insulin ([facility]) Tobacco user Gout, unspecified cause, unspecified chronicity, unspecified site Expected: 08/27/2024 (Approximate), Expires: 08/27/2025 [facility] Comment on above: Expected: 08/27/2024 (Approximate), Expires: 08/27/2025 Start: 08-26-2024 End: 08-26-2024 Patient encounter procedure 08/26/2024 10:30 AM EST Office Visit [facility] [address] [place] [address] Rain Souza MD [address] [place] [address] [facility] Start: 07-14-2024 End: 07-14-2024 Patient encounter procedure 07/14/2024 6:30 PM EST Office Visit [facility] [address] [place] [address] Mckayla Blas NP [address] [place] [address] [facility] Start: 07-14-2024 End: 07-14-2024 Patient encounter procedure 07/14/2024 10:10 AM EST Office Visit [facility] [address] [place] [address] Rain Souza MD [address] [place] [address] [facility] Start: 06-06-2024 Influenza vaccination Influenza Vacc ine (#1) [facility] Comment on above: Postponed from 03/09 (Patient Refused) Start: 05-27-2024 End: 05-27-2024 Patient encounter procedure 05/27/2024 9:50 AM EST Office Visit [facility] [address] [place] [address] Rain Souza MD [address] [place] [address] [facility] Start: 05-17-2024 Hemoglobin A1c measurement Diabetes: Hemoglobin A1C [facility] Start: 05-15-2024 End: 05-15-2024 Chart abstracting 05/15/[address] [facility] [address] [place] [address] Rain Souza MD [address] [place] [address] [facility] Start: 05-15-2024 End: 05-15-2024 Patient encounter procedure 05/15/2024 11:20 AM EST Office Visit [facility] [address] [place] [address] Rain Souza MD [address] [place] [address] [facility] Start: 04-17-2024 End: 04-17-2024 Patient encounter procedure 04/17/2024 3:40 PM EDT Office Visit [facility] [address] [place] [address] Mckayla Blas NP [address] [place] [address] [facility] Start: 04-14-2024 End: 04-14-2024 Patient encounter procedure 04/14/2024 11:00 AM EDT Office Visit [facility] [address] [place] [address] Mckayla Blas NP [address] [place] [phone] Arrived [facility] Comment on above: Arrived Start: 03-09-2024 Influenza vaccination Influenza Vacc ine (#1) [facility] Start: 02-19-2024 Hemoglobin A1c measurement Diabetes: Hemoglobin A1C [facility] Start: 11-24-2023 Urine screening for protein Diabetes: Urine Protein Screening [facility] Start: 11-23-2023 Screening for malignant neoplasm of breast Mammogram [facility] Start: 10-15-2023 End: 10-15-2023 Patient encounter procedure 10/15/2023 4:30 PM EDT [facility] [address] [place] [address] Mckayla Blas NP [address] [place] [phone] [facility] Start: 08-09-2023 Hemoglobin A1c measurement Diabetes: Hemoglobin A1C [facility] Start: 05-27-2021 Glaucoma screening Diabetes: R etinopathy Screening [facility] Start: 03-09-2020 Influenza vaccination Flu vacc ine (Season Ended) [place], [place] Start: 10-07-2018 Screening for malignant neoplasm of cervix [facility] Start: 2010 Lipid panel Lipid screen [place], [place] Start: 2000 Screening for malignant neoplasm of cervix HPV/Cotest [facility] Start: 1991 Screening for malignant neoplasm of cervix Cervical cancer screen [place], [place] Start: 1989 DTaP/Tdap/Td vaccine (1 - Tdap) DTaP/Tdap/Td vaccine ( - Tdap) [place], [place] Start: 1985 HIV screening HIV screen [place], [place] Start: 1970 Medicare Annual Wellness (AWV) Medicare Annual Wellness (AWV) [facility] Start: 1970 Screening for malignant neoplasm of colon [facility] BLOOD CULTURE 1 BLOOD CULTURE 1 Lab Routine 12/04/2024 4:44 PM EDT [facility] BLOOD CULTURE 2 BLOOD CULTURE 2 Lab Routine 12/04/2024 5:28 PM EDT [facility] Immunizations Immunization Date Immunization Notes Care Provider Judie lucas 05-18-2023 influenza, injectabl e, quadrivalent, contains preservative Mckayla Blas [employer] Work Phone: [facility] 05-18-2023 influenza virus vacc ine, unspecified formulation Rain Souza MD Work Phone: [facility] 07-19-2021 SARS-CoV-2 (COVID-19 ) mRNA BNT-162b2 vax Resonant Vibes [facility] 10-28-2020 SARS-CoV-2 (COVID-19 ) mRNA BNT-162b2 vax Resonant Vibes [facility] 10-08-2020 SARS-CoV-2 (COVID-19 ) mRNA BNT-162b2 vax Resonant Vibes [facility] 04-16-2017 influenza virus vacc ine, H5N1, A/ (national stockpile) Mckayla Blas [employer] Work Phone: [facility] 04-16-2017 influenza virus vacc ine, unspecified formulation Rain Souza MD Work Phone: [facility] 04-16-2017 influenza, unspecifi ed formulation Elbert ARAUZ [facility] 04-16-2017 pneumococcal polysaccharide vaccine, 23 valent Rain Souza MD Work Phone: [facility] 05-10-2016 influenza virus vacc ine, H5N1, A/ (national stockpile) Mckayla Blas [employer] Work Phone: [facility] 05-10-2016 influenza virus vacc ine, unspecified formulation Rain Souza MD Work Phone: [facility] 05-10-2016 influenza, unspecifi ed formulation Elbert ARAUZ [facility] 05-02-2013 influenza virus vacc ine, whole virus Rain Souza MD Work Phone: [facility] 05-02-2013 influenza, injectabl e, quadrivalent, contains preservative Mckayla Blas [employer] Work Phone: [facility] 05-02-2013 influenza, whole Elbert BARBARA ERS [facility] 01-29-1998 measles, mumps and rubella virus vaccine Rain Souza MD Work Phone: [facility] Payers Date Payer Category Payer Unknown [id number] 2023 Medicare (Managed Care) 1.2. [id number] [facility] [id number] 2023-Present [address] [address] [place] [address] [id number] 2023 Medicare [id number] 2018 Medicaid MEDICAID [facility] [id number] 2018-Present [phone] [address] [place] [address] Medicaid [id number] 2013 Medicare [id number]. [id number] 1970 Unknown [id number] 2.16.840.1.402571.3.579.2. 647 1970 Unknown [id number] 2.16.840.1.478605.3.579.2. 593 1970 Unknown [id number] 2.16.840.1.218140.3.579.2. 593 1970 Unknown [id number] 2.16.840.1.159062.3.579.2. 593 1970 Unknown [id number] 2.16.840.1.693873.3.579.2. 593 1970 Unknown [id number] 2.16.840.1.083872.3.579.2. 593 1970 Unknown [id number] 2.16.840.1.448706.3.579.2. 593 1970 Unknown [id number] 2.16.840.1.365723.3.579.2. 593 1970 Unknown [id number] 2.16.840.1.027890.3.579.2. 593 1970 Unknown [id number] 2.16.840.1.347618.3.579.2. 593 1970 Unknown [id number] 2.16.840.1.580445.3.579.2. 593 1970 Unknown [id number] 2.16.840.1.261375.3.579.2. 593 1970 Unknown [id number] 2.16.840.1.286773.3.579.2. 593 1970 Unknown [id number] 2.16.840.1.619538.3.579.2. 593 1970 Unknown [id number] 2.16.840.1.651774.3.579.2. 593 1970 Unknown [id number] 2.16.840.1.955661.3.579.2. 593 1970 Unknown [id number] 2.16.840.1.355956.3.579.2. 593 1970 Unknown [id number] 2.16.840.1.938698.3.579.2. 593 1970 Unknown [id number] 2.16.840.1.924693.3.579.2. 593 1970 Unknown [id number] 2.16.840.1.880762.3.579.2. 593 1970 Unknown [id number] 2.16.840.1.539496.3.579.2. 593 1970 Unknown [id number] 2.16.840.1.088369.3.579.2. 593 1970 Unknown [id number] 2.16.840.1.533094.3.579.2. 593 1970 Unknown [id number] 2.16840.1.225910.3.579.2. 727 1970 Unknown [id number] 2.16.840.1.196500.3.579.2. 727 1970 Unknown [id number] 2.16.840.1.306683.3.579.2. 1259 1970 Unknown [id number] 2.16.840.1.820703.3.579.2. 1259 1970 Unknown [id number] 2.16.840.1.137847.3.579.2. 1259 1970 Unknown [id number] 2.16.840.1.568372.3.579.2. 1259 1970 Unknown [id number] 2.16.840.1.699071.3.579.2. 1259 1970 Unknown [id number] 2.16.840.1.431942.3.579.2. 1259 1970 Unknown [id number] 2.16.840.1.551999.3.579.2. 1259 1970 Unknown [id number] 2.16.840.1.921639.3.579.2. 1259 1970 Unknown [id number] 2.16.840.1.638177.3.579.2. 1259 1959 Medicaid [id number] 1959 Private Health Insurance [id number] 1959 Unknown [id number] 2.16.840.1.559399.19 Social History Date Type Detail Facility Start: 02-17-2014 End: 01-29-2025 Tobacco smoking status NHIS Current every day smoker [place], [place] Start: 02-17-1994 History of tobacco use Cigarette Smo ker [place], [place] Start: 02-17-2014 End: 08-26-2024 Cigarettes smoked current (pack per day) - Reported [place], [place] Start: 02-17-2014 Alcohol intake Current drinke r of alcohol (finding) [place] Start: 02-17-2014 Alcohol Comment Rare [place], [place] Start: 1970 Sex Assigned At Not on file [place], [place] Exposure to SARS-CoV -2 (event) Unable to assess [place], [place] Start: 02-06-2022 Tobacco smoking status Smoker (findi ng) [facility] Start: 07-10-2023 End: 08-26-2024 Sex Assigned At Female [facility] Start: 11-15-2022 End: 06-11-2024 Tobacco smoking status Heavy tobacco smoker (finding) [facility] Start: 07-10-2023 End: 01-29-2025 Tobacco use and exposure Smokeless tobacco non-user [facility] Start: 07-10-2023 End: 01-29-2025 Alcohol intake Lifetime non-drinker (finding) [facility] Within the last year , have you been afraid of your partner or ex-partner? No [facility] Do you belong to any clubs or organizations such as hoahaoism groups, unions, fraternal [...] Equipment Origin al Text Equipment Identifier Dates [id number] Start: 01-18-2024 USE TO TEST BLOO D SUGAR 4 TIMES DAILY [id number] Start: 07-07-2024 Functional Status Date Assessment Result Facility 01-26-2025 Patient Health Quest ionnaire 2 item (PHQ-2) [Reported] [facility] 01-26-2025 Trouble falling or s taying asleep, or sleeping too much Not at all 01/26/2025 4:13 PM EDT Mychart, Generic Not at all [facility] 01-26-2025 Feeling tired or hav ing little energy Not at all 01/26/2025 4:13 PM EDT Mychart, Generic Not at all [facility] 01-26-2025 Poor appetite or overeating Not at all 01/26/2025 4:13 PM EDT Mychart, Generic Not at all [facility] 01-26-2025 Feeling bad about yourself-or that you are a failure or have let yourself or your family down Not at all 01/26/2025 4:13 PM EDT Mychart, Generic Not at all [facility] 01-26-2025 Trouble concentratin g on things, such as reading the newspaper or watching television Not at all 01/26/2025 4:13 PM EDT Mychart, Generic Not at all [facility] 01-26-2025 Moving or speaking s o slowly that other people could have noticed. Or the opposite - being so fidgety or restless that you have been moving around a lot more than usual Not at all 01/26/2025 4:13 PM EDT Mychart, Generic Not at all [facility] 01-26-2025 Thoughts that you wo uld be better off , or of hurting yourself in some way Not at all 01/26/2025 4:13 PM EDT Mychart, Generic Not at all [facility] 06-11-2024 Functional Status N/A [facility] 11-15-2022 Functional Status N/A [facility] 02-06-2022 Functional Status N/A [facility] Clinical Notes 01-19-2022 to 02-04-2025 Rain Souza [...] Follow-up as planned in 6 months. Thanks! [facility] 01-29-2025 History of Present illness Narrative Images [...] 25 mg, Oral, 2 times daily HYDROcodone-acetaminophen ([place]) 5-325 MG tablet 1 tablet, 3 times [...] 09/17/2023 Angiomyolipoma Anxiety and depression 07/10/2023 Asthma ([facility]) 07/10/2023 Body mass index (BMI) 50.0-59.9, adult ([facility] Cellulitis of left lower extremity Cervical cancer ([facility]) 09/17/2023 Chronic pain of both knees 09/17/2023 COPD (chronic obstructive pulmonary disease) ([facility]) 07/10/2023 COPD exacerbation ([facility]) 09/17/2023 Decreased functional mobility 09/17/2023 Diabetic neuropathy ([facility]) 07/10/2023 Dietary counseling and surveillance Edema 07/10/2023 Elevated sed rate Elevated WBC count Essential (primary) hypertension GERD (gastroesophageal reflux disease) 09/17/2023 Hyperlipidemia 09/17/2023 Hypertension 07/10/2023 Insomnia 09/17/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) 09/17/2023 Pneumonia 09/17/2023 Proteinuria, unspecified Pulmonary hypertension ([facility]) 09/17/2023 Radiculopathy, lumbar region 09/17/2023 Tobacco user 09/17/2023 Type 2 diabetes mellitus with complication, with long-term current use of insulin ([facility]) 07/10/2023 Unilateral primary osteoarthritis, [...] (BMI) of 50.0 to 59.9 in adult ([facility]) Diet and exercise reviewed with the patient Follow up in about 4 months (around 06/01/2025). 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 Associated Problem(s): COPD (chronic [...] 25 mg, Oral, 2 times daily HYDROcodone-acetaminophen ([place]) 5-325 MG tablet 1 tablet, 3 times [...] Cellulitis of left lower extremity Cervical cancer ([facility]) 09/17/2023 Chronic pain of both knees 09/17/2023 COPD (chronic obstructive pulmonary disease) ([facility]) 07/10/2023 COPD exacerbation ([facility]) 09/17/2023 Decreased functional mobility 09/17/2023 Diabetic neuropathy ([facility]) 07/10/2023 Dietary counseling and surveillance Edema 07/10/2023 Elevated sed rate Elevated WBC count Essential (primary) hypertension GERD (gastroesophageal reflux disease) 09/17/2023 Hyperlipidemia 09/17/2023 Hypertension 07/10/2023 Insomnia 09/17/2023 half-way (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 ([facility]) Lower extremity edema 09/17/2023 Mixed hyperlipidemia Morbid (severe) obesity due to excess calories ([facility] [place] Obstructive sleep apnea 07/10/2023 PAD (peripheral artery disease) 09/17/2023 Pancreatitis ([facility]) 09/17/2023 Pneumonia 09/17/2023 Proteinuria, unspecified Pulmonary hypertension ([facility]) 09/17/2023 Radiculopathy, lumbar region 09/17/2023 Tobacco user 09/17/2023 Type 2 diabetes mellitus with complication, with long-term current use of insulin ([facility]) 07/10/2023 Unilateral primary osteoarthritis, [...] is 7.4%!!! 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 Hypertension Please check blood [...] amitriptyline (Elavil) 25 MG tablet Pulmonary hypertension ([facility]) Has seen [facility] Cardiology Hyperlipidemia On statin therapy Check [...] Morbid (severe) obesity due to excess calories ([facility]) Discussed with patient their [...] Associated Problem(s): Pulmonary hypertension (HCC) Has seen [facility] Cardiology Associated Problem(s): Hypertension Please check [...] a yearly basis documented in this encounter [facility] 01-26-2025 Instructions Mckayla Blas NP - 01/26/2025 6:00 PM EDT Please call the [facility] to schedule your mammogram: [phone]- ext [phone] documented in this encounter [facility] 01-06-2025 Note Cardiovascular Medic [facility] SUBJECTIVE Chief Complaint Patient presents with Congestive Heart Failure Hypertension Hyperlipidemia Mitzi Macias is a 54 y.o. female here for follow-up. PMHx: HFpEF, HTN, HLD, DM, longstanding heavy smoker, COPD, DANIEL, morbid obesity HPI 01/06/2025 Since last seen she was admitted to [facility] for AMS on 12/05/2024. She was [...] syndrome (CMS/HCC) Decreased functional mobility Diabetic neuropathy ([facility]/HCC) Easy bruising GERD (gastroesophageal reflux disease) [...] complication, with long-term current use of insulin ([facility]/HCC) Unilateral primary osteoarthritis, right hip Vaginal yeast infection Venous insufficiency Bad odor of urine Critical limb ischemia of right lower extremity ([facility]/HCC) Hyperpigmentation of skin 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 2 diabetes mellitus ([facility]/HCC) Myelolipoma of adrenal gland Venous ulcer of right leg ([facility]/HCC) Chronic diastolic heart failure ([facility]) Antibiotic-induced yeast infection Cellulitis of left lower extremity Cigarette nicotine dependence without complication Fever 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 ([facility]) half-way current use of inhaled steroid Vitamin D deficiency, unspecified Vitamin deficiency Past Medical History: Diagnosis Date COPD (chronic obstructive pulmonary disease) ([facility]/HCC) Diabetes mellitus ([facility]) Hyperlipidemia Hypertension Sleep apnea Family [...] , Rfl: ergocalciferol (Vitamin D-2) 1.25 MG (13831 Units) capsule, Take 1.25 mg by mouth., [...] and at bedtime., Disp: , Rfl: HYDROcodone-acetaminophen ([place]) 5-325 mg tablet, TAKE 1 TABLET BY MOUTH THREE TIMES A DAY NEEDED FOR PAIN MUST LAST 30 DAYS, Disp: , Rfl: insulin aspart (NovoLOG) 100 unit/mL (3 mL) injection pen, Novolog Flexpen U-100 Insulin aspart 100 unit/mL (3 mL) subcutaneous, Disp: , Rfl: insulin glargine (Lantus Solostar U-100 Insulin) 100 unit/mL (3 mL) injection pen (more content not included)... [facility] 01-06-2025 Note Patient is here toda y [...] weight gain. Cardiovascular: Positive for leg swelling. [facility] 12-09-2024 History of Present illness Narrative Associated [...] bad light. She was ultimately taken to [facility] ER, no tox screen was done [...] 25 mg, Oral, 2 times daily HYDROcodone-acetaminophen ([place]) 5-325 MG tablet 1 tablet, 3 times [...] CT Albuminuria 09/17/2023 Angiomyolipoma Anxiety and depression ([facility]) 07/10/2023 Asthma 07/10/2023 Body mass index (BMI) 50.0-59.9, adult ([facility]) Cellulitis of left lower extremity Cervical cancer ([facility]) 09/17/2023 Chronic pain of both knees 09/17/2023 COPD (chronic obstructive pulmonary disease) ([facility]) 07/10/2023 COPD exacerbation ([facility]) 09/17/2023 Decreased functional mobility 09/17/2023 Diabetic neuropathy ([facility]) 07/10/2023 Dietary counseling and surveillance Edema 07/10/2023 Elevated sed rate Elevated WBC count Essential (primary) hypertension [place] GERD (gastroesophageal reflux disease) 09/17/2023 Hyperlipidemia [place] 09/17/2023 Hypertension [place] 07/10/2023 Insomnia 09/17/2023 half-way (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 ([facility] Lower extremity edema 09/17/2023 Mixed hyperlipidemia [place] Morbid (severe) obesity due to excess calories ([facility] [facility] Obstructive sleep apnea 07/10/2023 PAD (peripheral artery disease) [place] 09/17/2023 Pancreatitis 09/17/2023 Pneumonia 09/17/2023 Proteinuria, unspecified Pulmonary hypertension [place] 09/17/2023 Radiculopathy, lumbar region 09/17/2023 Tobacco user 09/17/2023 Type 2 diabetes mellitus with complication, with long-term current use of insulin ([facility] 07/10/2023 Unilateral primary osteoarthritis, right [...] Problem List Items Addressed This Visit Hypertension ([facility]) Please check blood pressure daily and record DASH diet Limit caffeine Take medication as directed Contact office if chest pain, pressure, dizziness, shortness of breath, swelling legs Recommend slow position changes Current meds: hydralazine, lisinopril, Type 2 diabetes mellitus with complication, with long-term current use of insulin ([facility]) Check blood sugars daily, [...] secondary to her steroids Anxiety and depression ([facility]) Current meds: elavil, duloxtine, COPD exacerbation ([facility]) Recent ER visit for unresponsiveness , found to have fever and elevated WBC Sent home with steroids and atb Breathing is better and she feels back to her normal baseline Does have home O2, she is not wearing this today Pulmonary hypertension ([facility]) Has seen [facility] Cardiology Morbid (severe) obesity due to excess calories ([facility]) Discussed with patient their [...] Finish atb's Associated Problem(s): Anxiety and depression ([facility]) Current meds: elavil, duloxtine, Associated Problem(s): Type 2 diabetes mellitus with complication, with long-term current use of insulin ([facility]) Check blood sugars daily, [...] Associated Problem(s): Pulmonary hypertension (CMS/HCC) Has seen [facility] Cardiology Associated Problem(s): Hypertension (CMS/HCC) Please [...] wearing this today documented in this encounter [facility] 12-09-2024 Instructions Mckayla Blas NP - 12/09/2024 10:00 AM EDT Keep appt with wound care today Keep fu with me, sooner if needed documented in this encounter [facility] 10-27-2024 History of Present illness [...] 25 mg, Oral, 2 times daily HYDROcodone-acetaminophen ([place]) 5-325 MG tablet 1 tablet, 3 times [...] CT Albuminuria 09/17/2023 Angiomyolipoma Anxiety and depression ([facility] 07/10/2023 Asthma 07/10/2023 Body mass index (BMI) 50.0-59.9, adult ([facility] Cellulitis of left lower extremity Cervical cancer ([facility] 09/17/2023 Chronic pain of both knees 09/17/2023 COPD (chronic obstructive pulmonary disease) ([facility] 07/10/2023 COPD exacerbation ([facility] 09/17/2023 Decreased functional mobility 09/17/2023 Diabetic neuropathy ([facility] 07/10/2023 Dietary counseling and surveillance Edema 07/10/2023 Elevated sed rate Elevated WBC count Essential (primary) hypertension ([facility] GERD (gastroesophageal reflux disease) 09/17/2023 Hyperlipidemia ([facility] 09/17/2023 Hypertension ([facility] 07/10/2023 Insomnia 09/17/2023 half-way (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 ([facility] Lower extremity edema 09/17/2023 Mixed hyperlipidemia ([facility] Morbid (severe) obesity due to excess calories ([facility] Obstructive sleep apnea 07/10/2023 PAD (peripheral artery disease) ([facility] 09/17/2023 Pancreatitis 09/17/2023 Pneumonia 09/17/2023 Proteinuria, unspecified Pulmonary hypertension ([facility] 09/17/2023 Radiculopathy, lumbar region 09/17/2023 Tobacco user 09/17/2023 Type 2 diabetes mellitus with complication, with long-term current use of insulin ([facility] 07/10/2023 Unilateral primary osteoarthritis, right [...] complication, with long-term current use of insulin ([facility]) Check blood sugars daily, [...] 81 MG chewable tablet Anxiety and depression ([facility]) Current meds: elavil, duloxtine, Relevant Medications DULoxetine (Cymbalta) [address] capsule Bilateral lower extremity edema Limit sodium , elevate legs, furosemide Relevant Medications furosemide (Lasix) 20 MG tablet potassium chloride ER (Micro-K) 10 MEQ ER capsule furosemide (Lasix) 40 MG tablet Insomnia Relevant Medications amitriptyline (Elavil) 25 MG tablet PAD (peripheral artery disease) ([facility]) Asa, statin Quit smoking [...] MG tablet Venous ulcer of right leg ([facility]) Continue with wound care and management of wound, currently they are using dakins Wound is improving Morbid (severe) obesity due to excess calories ([facility]) Discussed with patient their [...] mounjaro for DM Chronic diastolic heart failure (CMS/[facility]) Current meds; asa, farxiga, lasix, hydralazine, lisinopril, Follows with cardilogy Reviewed 08/02 notes Cigarette nicotine dependence without complication Is currently using chantix, and is doing well, less desire, smoking less Vitamin D deficiency, unspecified Relevant Medications ergocalciferol (Vitamin D2) 1.25 MG (42114 UT) capsule Gastro-esophageal reflux disease without esophagitis Relevant Medications omeprazole (PriLOSEC) [address] capsule Other Visit Diagnoses Type 2 diabetes mellitus with unspecified complications Relevant Medications dapagliflozin (Farxiga) 10 MG Associated Problem(s): Cigarette nicotine dependence without complication Is currently using chantix, and is doing well, less desire, smoking less Associated Problem(s): Anxiety and depression ([facility]) Current meds: elavil, duloxtine, Associated Problem(s): Type 2 diabetes mellitus with complication, with long-term current use of insulin ([facility]) Check blood sugars daily, [...] A1c is 7.4%!!! documented in this encounter [facility] 10-27-2024 Instructions Mckayla Blas NP - 10/27/2024 2:00 PM EDT No dose changes in meds You will be due for mammogram I will send order to [facility], they should call you to schedule If no call, please call [phone] ext [phone] documented in this encounter [facility] 10-08-2024 History of Present illness [...] or chew. ergocalciferol (Vitamin D2) 1.25 MG (82000 UT) capsule TAKE 1 CAPSULE BY MOUTH [...] 25 mg, Oral, 2 times daily HYDROcodone-acetaminophen ([place]) 5-325 MG tablet 1 tablet, 3 times [...] CT Albuminuria 09/17/2023 Angiomyolipoma Anxiety and depression ([facility]) 07/10/2023 Asthma ([facility]) 07/10/2023 Body mass index (BMI) 50.0-59.9, adult ([facility]) Cellulitis of left lower extremity Cervical cancer ([facility]) 09/17/2023 Chronic pain of both knees 09/17/2023 COPD (chronic obstructive pulmonary disease) ([facility]) 07/10/2023 COPD exacerbation ([facility] 09/17/2023 Decreased functional mobility 09/17/2023 Diabetic neuropathy ([facility] 07/10/2023 Dietary counseling and surveillance Edema 07/10/2023 Elevated sed rate Elevated WBC count Essential (primary) hypertension ([facility] GERD (gastroesophageal reflux disease) 09/17/2023 Hyperlipidemia ([facility] 09/17/2023 Hypertension ([facility] 07/10/2023 Insomnia 09/17/2023 half-way (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 ([facility] Lower extremity edema 09/17/2023 Mixed hyperlipidemia ([facility] Morbid (severe) obesity due to excess calories ([facility] Obstructive sleep apnea 07/10/2023 PAD (peripheral artery disease) ([facility] 09/17/2023 Pancreatitis 09/17/2023 Pneumonia 09/17/2023 Proteinuria, unspecified Pulmonary hypertension ([facility] 09/17/2023 Radiculopathy, lumbar region 09/17/2023 Tobacco user 09/17/2023 Type 2 diabetes mellitus with complication, with long-term current use of insulin ([facility] 07/10/2023 Unilateral primary osteoarthritis, right [...] hyperglycemia, with long-term current use of insulin ([facility]) - POCT glucose manually [...] months (around 02/07/2025). documented in this encounter [facility] 08-27-2024 History of Present illness [...] or chew. ergocalciferol (Vitamin D2) 1.25 MG (89480 UT) capsule TAKE 1 CAPSULE BY MOUTH [...] 25 mg, Oral, 2 times daily HYDROcodone-acetaminophen ([place]) 5-325 MG tablet 1 tablet, 3 times [...] CT Albuminuria 09/17/2023 Angiomyolipoma Anxiety and depression ([facility] 07/10/2023 Asthma ([facility] 07/10/2023 Body mass index (BMI) 50.0-59.9, adult ([facility] Cellulitis of left lower extremity Cervical cancer ([facility]) 09/17/2023 Chronic pain of both knees 09/17/2023 COPD (chronic obstructive pulmonary disease) ([facility] 07/10/2023 COPD exacerbation ([facility] 09/17/2023 Decreased functional mobility 09/17/2023 Diabetic neuropathy ([facility] 07/10/2023 Dietary counseling and surveillance Edema 07/10/2023 Elevated sed rate Elevated WBC count Essential (primary) hypertension ([facility] GERD (gastroesophageal reflux disease) 09/17/2023 Hyperlipidemia ([facility]) 09/17/2023 Hypertension ([facility]) 07/10/2023 Insomnia 09/17/2023 half-way (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 ([facility] Lower extremity edema 09/17/2023 Mixed hyperlipidemia ([facility]) Morbid (severe) obesity due to excess calories ([facility] Obstructive sleep apnea 07/10/2023 PAD (peripheral artery disease) ([facility]) 09/17/2023 Pancreatitis 09/17/2023 Pneumonia 09/17/2023 Proteinuria, unspecified Pulmonary hypertension ([facility]) 09/17/2023 Radiculopathy, lumbar region 09/17/2023 Tobacco user 09/17/2023 Type 2 diabetes mellitus with complication, with long-term current use of insulin ([facility]) 07/10/2023 Unilateral primary osteoarthritis, [...] List Items Addressed This Visit Diabetic neuropathy ([facility]) Continue with cintia hudson mgmt is prescribing OARRS reviewed Fu in 3 months Goal: tighter glucose control Hypertension ([facility]) Please check blood pressure [...] complication, with long-term current use of insulin ([facility]) Check blood sugars daily, [...] / creatinine, urine ratio Anxiety and depression ([facility]) - Primary Current meds: [...] PPI Malignant neoplasm of cervix uteri, unspecified ([facility]) Had in the past, [...] lisinopril, Associated Problem(s): Chronic diastolic heart failure (CMS/[facility]) Current meds; asa, farxiga, lasix, hydralazine, lisinopril, Follows with cardilogy Reviewed 08/02 notes Associated Problem(s): COPD (chronic obstructive pulmonary disease) (CMS/[facility]) Follows with verena Needs smoking cessation Current meds: duoneb, albuterol, daliresp, Associated Problem(s): Asthma ([facility]) Current meds: albuterol, duoneb, 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 Associated Problem(s): Obstructive sleep [...] tighter glucose control documented in this encounter [facility] 08-08-2024 Note [place] [facility] - [facility] Subjective Mitzi Macias is a 53 [...] Diagnosis Date COPD (chronic obstructive pulmonary disease) ([facility]) Diabetes mellitus ([facility]) Hyperlipidemia Hypertension Sleep apnea Past [...] , Rfl: ergocalciferol (Vitamin D-2) 1.25 MG (86057 Units) capsule, Take 1.25 mg by mouth., [...] and at bedtime., Disp: , Rfl: HYDROcodone-acetaminophen ([place]) 5-325 mg tablet, TAKE 1 TABLET BY [...] TWICE DAILY, Disp: (more content not included)... [facility] 07-14[facility] History of Present illness [...] or chew. ergocalciferol (Vitamin D2) 1.25 MG (12664 UT) capsule TAKE 1 CAPSULE BY MOUTH ONE TIME PER WEEK furosemide (LASIX) 40 mg, Oral, Daily furosemide (LASIX) 20 mg, Oral, Daily PRN, Take in the afternoon as needed hydrALAZINE (APRESOLINE) 25 mg, Oral, 2 times daily HYDROcodone-acetaminophen ([place]) 5-325 MG tablet 1 tablet, 3 times [...] CT Albuminuria 09/17/2023 Angiomyolipoma Anxiety and depression ([facility] 07/10/2023 Asthma ([facility] 07/10/2023 Body mass index (BMI) 50.0-59.9, adult ([facility] Cellulitis of left lower extremity Cervical cancer ([facility] 09/17/2023 Chronic pain of both knees 09/17/2023 COPD (chronic obstructive pulmonary disease) ([facility] 07/10/2023 COPD exacerbation ([facility] 09/17/2023 Decreased functional mobility 09/17/2023 Diabetic neuropathy ([facility] 07/10/2023 Dietary counseling and surveillance Edema 07/10/2023 Elevated sed rate Elevated WBC count Essential (primary) hypertension ([facility] GERD (gastroesophageal reflux disease) 09/17/2023 Hyperlipidemia ([facility] 09/17/2023 Hypertension ([facility] 07/10/2023 Insomnia 09/17/2023 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 ([facility] Lower extremity edema 09/17/2023 Mixed hyperlipidemia ([facility] Morbid (severe) obesity due to excess calories ([facility] Obstructive sleep apnea 07/10/2023 PAD (peripheral artery disease) ([facility] 09/17/2023 Pancreatitis 09/17/2023 Pneumonia 09/17/2023 Proteinuria, unspecified Pulmonary hypertension ([facility]) 09/17/2023 Radiculopathy, lumbar region 09/17/2023 Tobacco user 09/17/2023 Type 2 diabetes mellitus with complication, with long-term current use of insulin ([facility] 07/10/2023 Unilateral primary osteoarthritis, right [...] List Items Addressed This Visit Diabetic neuropathy ([facility]) Continue with [place] reviewed Fu in 3 months COPD (chronic obstructive pulmonary disease) ([facility]) Stable at this time, no changes in meds Encouraged smoking cessation Cont with dr Yañez Hypertension ([facility]) - Primary Please check blood pressure daily and record DASH diet Limit caffeine Take medication as directed Contact office if chest pain, pressure, dizziness, shortness of breath, swelling legs Recommend slow position changes Current meds: hydralazine, lisinopril, Type 2 diabetes mellitus with complication, with long-term current use of insulin ([facility]) Check blood sugars daily, [...] 1 cm to 4 cm in diameter ([facility]) Continue with Urology Kidney stone Continue with Urology Non-seasonal allergic rhinitis Relevant Medications cetirizine (ZyrTEC) 10 MG tablet Critical limb ischemia of right lower extremity ([facility]) Saw vascular, does have narrowing in arteries in legs, and thus the wounds not healing At this point they strongly urge to quit smoking or risk limb amputation Cont asa and statin Also good blood pressure and sugar control Venous ulcer of right leg ([facility]) Encounter for smoking cessation counseling Relevant Medications nicotine (Nicoderm, Step 1) 21 MG/24HR patch Other Visit Diagnoses Type 2 diabetes mellitus with unspecified complications ([facility]) Quitting smokinppd, chantix not [...] complication, with long-term current use of insulin ([facility]) Check blood sugars daily, [...] PPI Associated Problem(s): PAD (peripheral artery disease) ([facility]) Asa, statin Quit smoking [...] in 3 months documented in this encounter [facility] 06-11-2024 Hospital Discharge instructions Patient [...] require a prescription. You can also purchase majn-ehg-skrcple medicines. Medicines may have nicotine in them [...] and encouragement. Call telephone quitlines, such as 5-863-FXUU-NOW, reach out to support groups, or work [...] provider. Document Revised: 06/16/2022 Document Reviewed: 06/16/2022 [employer] Patient [employer] 2023 [employer]. 06/11/2024 10:39:22 Dietary Guidelines to Help Prevent [...] include: ?8 oz (237 mL) of milk, unkkrxt-rygwjztdaclg-iutwq milk, and calcium-fortifiedfruit juice. Calcium-fortified means that [...] ?Spinach (cooked), rhubarb, beets, sweet potatoes, and Congolese chard. ?Peanuts. ?Potato chips, nigerien fries, and baked potatoes with skin on. ?Nuts and nut products. ?Chocolate. If you regularly take a diuretic medicine, make sure to eat at least 1 or 2 servings of fruits or vegetables that are high in potassium each day. These include: ?Avocado. ?Banana. ?[place], prune, carrot, or tomato juice. ?Baked potato. [...] magnesium, fish oil, or vitamin B6. Take tlen-qxc-idnnndn and prescription medicines only as told by [...] provider. Document Revised: 10/05/2022 Document Reviewed: 10/05/2022 [employer] Patient Education 2023 [employer]. Follow Up Care 05/06/2024 08:24:56 With:REGLA PHIPPS, Elbert Joya, URL Address: [facility] [address] , [place] [address]- When: Unknown [facility] 05-27-2024 History of Present illness Narrative [...] or chew. ergocalciferol (Vitamin D2) 1.25 MG (90537 UT) capsule TAKE 1 CAPSULE BY MOUTH ONE TIME PER WEEK furosemide (LASIX) 20 mg, Oral, Daily PRN, Take in the afternoon as needed furosemide (LASIX) 40 mg, Oral, Daily Glucose Blood (ACCU-CHEK JAQUI PLUS ) 4 times daily hydrALAZINE (APRESOLINE) 25 mg, Oral, 2 times daily HYDROcodone-acetaminophen ([place]) 5-325 MG tablet 1 tablet, 3 times [...] CT Albuminuria 09/17/2023 Angiomyolipoma Anxiety and depression ([facility]) 07/10/2023 Asthma ([facility]) 07/10/2023 Body mass index (BMI) 50.0-59.9, adult ([facility]) Cellulitis of left lower extremity Cervical cancer ([facility]) 09/17/2023 Chronic pain of both knees 09/17/2023 COPD (chronic obstructive pulmonary disease) ([facility]) 07/10/2023 COPD exacerbation [place] 09/17/2023 Decreased functional mobility 09/17/2023 Diabetic neuropathy ([facility] 07/10/2023 Dietary counseling and surveillance Edema 07/10/2023 Elevated sed rate Elevated WBC count GERD (gastroesophageal reflux disease) 09/17/2023 Hyperlipidemia ([facility] 09/17/2023 Hypertension ([facility] 07/10/2023 Insomnia 09/17/2023 half-way (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 ([facility] Lower extremity edema 09/17/2023 Morbid (severe) obesity due to excess calories ([facility] Obstructive sleep apnea 07/10/2023 PAD (peripheral artery disease) ([facility] 09/17/2023 Pancreatitis 09/17/2023 Pneumonia 09/17/2023 Proteinuria, unspecified Pulmonary hypertension ([facility] 09/17/2023 Radiculopathy, lumbar region 09/17/2023 Tobacco user 09/17/2023 Type 2 diabetes mellitus with complication, with long-term current use of insulin ([facility] 07/10/2023 Unilateral primary osteoarthritis, right [...] hyperglycemia, with long-term current use of insulin ([facility]) - POCT glucose manually resulted - POCT glycosylated hemoglobin (Hb A1C) docked device We will continue with Lantus 58, lispro 02/16/12 according to meal size, Mounjaro 15 mg once weekly, Farxiga 5 mg once a day Encounter for dietary consultation Vitamin D deficiency Primary hypertension ([facility]) To follow with her PCP Insulin long-term use ([facility]) Hyperlipemia, mixed ([facility] HOSPITAL/[facility]) Continue with Zocor 10 mg once daily Microalbuminuria Class 3 severe obesity due to excess calories with serious comorbidity and body mass index (BMI) of 50.0 to 59.9 in adult ([facility]) Diet and exercise reviewed with the patient Follow up in about 3 months (around 08/27/2024). documented in this encounter [facility] 04-14-2024 History of Present illness [...] being taken. 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 Hypertension This is [...] or chew. ergocalciferol (Vitamin D2) 1.25 MG (79924 UT) capsule TAKE 1 CAPSULE BY MOUTH ONE TIME PER WEEK furosemide (LASIX) 20 mg, Oral, Daily PRN, Take in the afternoon as needed furosemide (LASIX) 40 mg, Oral, Daily Glucose Blood (ACCU-CHEK JAQUI PLUS ) 4 times daily HumaLOG KWIKPEN 100 UNIT/ML injection Subcutaneous hydrALAZINE (APRESOLINE) 25 mg, Oral, 2 times daily HYDROcodone-acetaminophen ([place]) 5-325 MG tablet 1 tablet, 3 times [...] CT Albuminuria 09/17/2023 Angiomyolipoma Anxiety and depression ([facility]/HCC) 07/10/2023 Asthma ([facility]) 07/10/2023 Cellulitis of left lower extremity Cervical cancer ([facility]) 09/17/2023 Chronic pain of both knees 09/17/2023 COPD (chronic obstructive pulmonary disease) [place] 07/10/2023 COPD exacerbation [place] 09/17/2023 Decreased functional mobility 09/17/2023 Diabetic neuropathy [place] 07/10/2023 Edema 07/10/2023 Elevated sed rate Elevated WBC count GERD (gastroesophageal reflux disease) 09/17/2023 Hyperlipidemia [place] 09/17/2023 Hypertension [place] 07/10/2023 Insomnia 09/17/2023 Lower extremity edema 09/17/2023 Obstructive sleep apnea 07/10/2023 PAD (peripheral artery disease) [place] 09/17/2023 Pancreatitis 09/17/2023 Pneumonia 09/17/2023 Pulmonary hypertension [place] 09/17/2023 Radiculopathy, lumbar region 09/17/2023 Tobacco user 09/17/2023 Type 2 diabetes mellitus with complication, with long-term current use of insulin [place] 07/10/2023 Unilateral primary osteoarthritis, right [...] List Items Addressed This Visit Diabetic neuropathy ([facility]) Continue with tristan EAST reviewed Fu in 3 months Relevant Medications pregabalin (Lyrica) 300 MG capsule COPD (chronic obstructive pulmonary disease) ([facility]) - Primary Stable at this time, no changes in meds Encouraged smoking cessation Cont with dr Yañez Hypertension ([facility]) Stable on current meds Refill meds Relevant Medications hydrALAZINE (Apresoline) 25 MG tablet lisinopril 20 MG tablet Type 2 diabetes mellitus with complication, with long-term current use of insulin ([facility]) Check blood sugars daily, [...] 500 MCG tablet documented in this encounter [facility] 11-15-2022 Hospital Discharge instructions Patient [...] include: ?8 oz (237 mL) of milk, yvqvkcx-mulsjiuqkflq-gikpp milk, and calcium-fortifiedfruit juice. Calcium-fortified means that [...] ?Spinach (cooked), rhubarb, beets, sweet potatoes, and Congolese chard. ?Peanuts. ?Potato chips, nigerien fries, and baked potatoes with skin on. ?Nuts and nut products. ?Chocolate. If you regularly take a diuretic medicine, make sure to eat at least 1 or 2 servings of fruits or vegetables that are high in potassium each day. These include: ?Avocado. ?Banana. ?[place], prune, carrot, or tomato juice. ?Baked potato. [...] magnesium, fish oil, or vitamin B6. Take xghu-bsg-gxiqhww and prescription medicines only as told by [...] provider. Document Revised: 03/06/2022 Document Reviewed: 03/06/2022 [employer] Patient Education 2022 Delivery Club. Follow Up Care 02/06/2022 11:44:09 With:SARAH VEGA PA-C, URL Address: [address] [place] [address] When: Unknown [facility] 08-24-2022 Note CONSULTATION CONSULTATION DATE: 08/24/2022 HISTORY [...] We maintain her on pain medication with [place] 5/325 t.i.d., diclofenac 75 mg b.i.d. Her [...] her at this point. A refill for [place] 5/325 t.i.d. and diclofenac 75 mg b.i.d. will be sent to the pharmacy. Vitamin compliance and nutrition were discussed and enforced. I did highly encourage her to use exercise bands to increase the strength in her lower extremities. We will see her in three months' time, unless otherwise indicated, and patient agrees. [facility] 05-11-2022 Note CONSULTATION CONSULTATION DATE: 05/11/2022 [...] 150. Medications include Lyrica 300 mg b.i.d., [place] 5/325 t.i.d., diclofenac 75 mg b.i.d. and [...] her medications today. We will maintain Lyrica, [place] and diclofenac at the set dose and frequency. We will follow-up in the clinic in three months' time. The patient is in agreement to this. Vitamin importance and nutrition were discussed. [facility] 04-20-2022 Note CONSULTATION CONSULTATION DATE: 04/20/2022 [...] medications include Tylenol, Lyrica 300 mg b.i.d., [place] 5/325 t.i.d., amitriptyline, diclofenac and duloxetine. Patient's [...] up in the clinic. [facility] 03-08-2022 Evaluation note Encounter Date Diagnosis [...] to the DANIEL. Thrombocytopenia is unclear etiology. [facility] [facility] [employer] Other 08-15-2022 Evaluation note* Encounter Date Diagnosis [...] follow with Dr. Souza and Dr. Arauz. [facility] [facility] Other 08-01-2022 Hospital Discharge instructions Patient Education [...] fried and sweet foods. General instructions Take qelq-zbz-tqervjs and prescription medicines only as told by [...] 04/21/2010 Document Revised: 10/16/2019 Document Reviewed: 07/11/2018 [employer] Patient Education 2020 Delivery Club. Follow Up Care 01/05/2022 12:02:03 With:REGLA PHIPPS, Elbert Joya, URL Address: [facility] [address] [place] [phone] When:Within 6 Month(s) Comments:w/ repeat CT A/P [facility] 07-14-2022 NoteCONSULTATION PROCEDURE DATE: 01/19/2022 PRE AND [...] pattern and the patient tolerated it well. [facility] Signed and Approved by: GIL VALENZUELA . 01/27/2022 14:15:00[facility]07-14-2022 NoteCONSULTATION CONSULTATION DATE: 01/19/2022 This [...] today. Medications include Lyrica 300 mg b.i.d., [place] 5/325 t.i.d., diclofenac 75 mg b.i.d. and [...] in three months' time unless otherwise indicated. [facility] Signed and Approved by: GIL VALENZUELA . 01/27/2022 [facility]ments Appointment Date:08/14/2022 09:15:00 AM Scheduled Provider:Elbert ARAUZ MD Location:[facility] Appointment Type:URO Office Visit [facility] evaluation + Plan note Future Appointments Appointment Date:04/22/2024 10:00:00 AM Scheduled Provider:SARAH VEGA PA-C Location:[facility] Appointment Type:URO Office Visit [facility] evalzrgefr note* Diagnosis Type 2 diabetes mellitus with unspecified complications ([facility]) Edema, unspecified Edema [facility] Diagnosis Vaginal yeast infection- Primary Candidiasis of vulva and vagina documented [facility]* Diagnosis Primary hypertension ([facility]/HCC)- Primary Unspecified essential hypertension Insomnia Insomnia, unspecified Type 2 diabetes mellitus with complication, with long-term current use of insulin (CMS/HCC) Non-seasonal allergic rhinitis, unspecified trigger Type 2 diabetes mellitus with unspecified complications (CMS/HCC) Anxiety and depression ([facility]) Gastro-esophageal reflux disease without esophagitis Edema, unspecified Edema Diabetic polyneuropathy associated with type 2 diabetes mellitus ([facility]/HCC) Chronic obstructive pulmonary disease, unspecified (CMS/HCC) Pulmonary emphysema, unspecified emphysema type (CMS/HCC) Bilateral lower extremity edema Tobacco user Tobacco use disorder Hyperpigmentation of skin Other dyschromia [facility] Diagnosis Obstructive sleep apnea- Primary Obstructive sleep apnea (adult) (pediatric) Pulmonary emphysema, unspecified emphysema type (CMS/HCC) Primary hypertension ([facility]) Unspecified essential hypertension Type 2 diabetes mellitus with complication, with long-term current use of insulin ([facility]) Anxiety and depression ([facility]) Bilateral lower extremity edema Pulmonary emphysema, unspecified emphysema type (CMS/HCC)- Primary Primary hypertension ([facility]) Unspecified essential hypertension Class 3 severe obesity with serious comorbidity and body mass index (BMI) of 50.0 to 59.9 in adult, unspecified obesity type ([facility]) Obstructive sleep apnea Obstructive sleep apnea (adult) (pediatric) Pulmonary hypertension (CMS/[facility]) Other chronic pulmonary heart diseases Tobacco user Tobacco use disorder Cardiomegaly Primary hypertension ([facility])- Primary Unspecified essential hypertension Gastroesophageal reflux disease, unspecified whether esophagitis present Type 2 diabetes mellitus with complication, with long-term current use of insulin ([facility]) Mixed hyperlipidemia ([facility]) Mixed hyperlipidemia Tobacco user Tobacco use disorder Encounter for screening mammogram for malignant neoplasm of breast Chronic obstructive pulmonary disease, unspecified ([facility]) Other specified chronic obstructive pulmonary disease ([facility]) Anxiety and depression ([facility]) Edema, unspecified Edema Hyperlipidemia, unspecified ([facility]) Diabetic polyneuropathy associated with type 2 diabetes mellitus ([facility]) Gout, unspecified cause, unspecified chronicity, unspecified site Non-seasonal allergic rhinitis, unspecified trigger Bilateral lower extremity edema COPD exacerbation ([facility]) Obstructive chronic bronchitis with exacerbation Pulmonary emphysema, unspecified emphysema type ([facility]) Venous insufficiency Unspecified venous (peripheral) insufficiency Candidiasis of breast COPD exacerbation ([facility])- Primary Obstructive chronic bronchitis with exacerbation Pulmonary hypertension ([facility]) Other chronic pulmonary heart diseases Class 3 severe obesity with serious comorbidity and body mass index (BMI) of 50.0 to 59.9 in adult, unspecified obesity type ([facility]) Encounter for subsequent annual wellness visit (AWV) in Medicare patient- Primary Type 2 diabetes mellitus with unspecified complications ([facility]) Pulmonary emphysema, unspecified emphysema type ([facility]) Moderate persistent asthma without complication ([facility]) Primary hypertension ([facility]) Unspecified essential hypertension Type 2 diabetes mellitus with complication, with long-term current use of insulin ([facility]) Class 3 severe obesity with serious comorbidity and body mass index (BMI) of 50.0 to 59.9 in adult, unspecified obesity type ([facility]) Tobacco user Tobacco use disorder Other headache syndrome Malignant neoplasm of cervix uteri, unspecified ([facility]) Other specified disorders of adrenal gland ([facility]) Major depressive disorder, single episode, mild (HCC) ([facility]) Major depressive disorder, single episode, mild 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 exposed ([facility]) Chronic respiratory failure, unspecified whether with hypoxia or hypercapnia ([facility]) Disorder of adrenal gland, unspecified ([facility]) Non-pressure chronic ulcer of other part of right lower leg limited to breakdown of skin ([facility]) Non-recurrent acute suppurative otitis media of left ear without spontaneous rupture of tympanic membrane Primary hypertension ([facility])- Primary Unspecified essential hypertension Insomnia Insomnia, unspecified Type 2 diabetes mellitus with complication, with long-term current use of insulin ([facility]) Non-seasonal allergic rhinitis, unspecified trigger Type 2 diabetes mellitus with unspecified complications ([facility]) Anxiety and depression ([facility]) Gastro-esophageal reflux disease without esophagitis Edema, unspecified Edema Diabetic polyneuropathy associated with type 2 diabetes mellitus ([facility]) Chronic obstructive pulmonary disease, unspecified ([facility]) Pulmonary emphysema, unspecified emphysema type ([facility]) Bilateral lower extremity edema Tobacco user Tobacco use disorder Hyperpigmentation of skin Other dyschromia Type 2 diabetes mellitus with hyperglycemia, with long-term current use of insulin ([facility])- Primary Encounter for dietary consultation Vitamin D deficiency Primary hypertension ([facility]) Unspecified essential hypertension Insulin long-term use ([facility]) Encounter for long-term (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 Hyperlipemia, mixed ([facility]) Mixed hyperlipidemia Microalbuminuria Proteinuria Class 3 severe obesity due to excess calories with serious comorbidity and body mass index (BMI) of 50.0 to 59.9 in adult ([facility]) documented in this encounter [facility]* Diagnosis Hyperlipidemia, unspecified ([facility]) Bilateral lower extremity edema documented in [facility] encounter [facility]* Diagnosis Vitamin D deficiency, unspecified documented in this encounter [facility]* Diagnosis Obstructive sleep apnea- Primary Obstructive sleep apnea (adult) (pediatric) Pulmonary emphysema, unspecified emphysema type ([facility]) Primary hypertension ([facility]) Unspecified essential hypertension Type 2 diabetes mellitus with complication, with long-term current use of insulin ([facility]) Anxiety and depression ([facility]) Bilateral lower extremity edema Pulmonary emphysema, unspecified emphysema type ([facility])- Primary Primary hypertension ([facility]) Unspecified essential hypertension Class 3 severe obesity with serious comorbidity and body mass index (BMI) of 50.0 to 59.9 in adult, unspecified obesity type ([facility]) Obstructive sleep apnea Obstructive sleep apnea (adult) (pediatric) Pulmonary hypertension ([facility]) Other chronic pulmonary heart diseases Tobacco user Tobacco use disorder Cardiomegaly Primary hypertension ([facility])- Primary Unspecified essential hypertension Gastroesophageal reflux disease, unspecified whether esophagitis present Type 2 diabetes mellitus with complication, with long-term current use of insulin ([facility]) Mixed hyperlipidemia ([facility]) Mixed hyperlipidemia Tobacco user Tobacco use disorder Encounter for screening mammogram for malignant neoplasm of breast Chronic obstructive pulmonary disease, unspecified ([facility]) Other specified chronic obstructive pulmonary disease ([facility]) Anxiety and depression ([facility]) Edema, unspecified Edema Hyperlipidemia, unspecified ([facility]) Diabetic polyneuropathy associated with type 2 diabetes mellitus ([facility]) Gout, unspecified cause, unspecified chronicity, unspecified site Non-seasonal allergic rhinitis, unspecified trigger Bilateral lower extremity edema COPD exacerbation ([facility]) Obstructive chronic bronchitis with exacerbation Pulmonary emphysema, unspecified emphysema type ([facility]) Venous insufficiency Unspecified venous (peripheral) insufficiency Candidiasis of breast COPD exacerbation ([facility])- Primary Obstructive chronic bronchitis with exacerbation Pulmonary hypertension ([facility]) Other chronic pulmonary heart diseases Class 3 severe obesity with serious comorbidity and body mass index (BMI) of 50.0 to 59.9 in adult, unspecified obesity type ([facility]) Encounter for subsequent annual wellness visit (AWV) in Medicare patient- Primary Type 2 diabetes mellitus with unspecified complications ([facility]) Pulmonary emphysema, unspecified emphysema type ([facility]) Moderate persistent asthma without complication ([facility]) Primary hypertension ([facility]) Unspecified essential hypertension Type 2 diabetes mellitus with complication, with long-term current use of insulin ([facility]) Class 3 severe obesity with serious comorbidity and body mass index (BMI) of 50.0 to 59.9 in adult, unspecified obesity type ([facility]) Tobacco user Tobacco use disorder Other headache syndrome Malignant neoplasm of cervix uteri, unspecified ([facility]) Other specified disorders of adrenal gland ([facility]) Major depressive disorder, single episode, mild (HCC) ([facility]) Major depressive disorder, single episode, mild 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 exposed ([facility]) Chronic respiratory failure, unspecified whether with hypoxia or hypercapnia ([facility]) Disorder of adrenal gland, unspecified ([facility]) Non-pressure chronic ulcer of other part of right lower leg limited to breakdown of skin ([facility]) Non-recurrent acute suppurative otitis media of left ear without spontaneous rupture of tympanic membrane Primary hypertension ([facility])- Primary Unspecified essential hypertension Insomnia Insomnia, unspecified Type 2 diabetes mellitus with complication, with long-term current use of insulin ([facility]) Non-seasonal allergic rhinitis, unspecified trigger Type 2 diabetes mellitus with unspecified complications ([facility]) Anxiety and depression ([facility]) Gastro-esophageal reflux disease without esophagitis Edema, unspecified Edema Diabetic polyneuropathy associated with type 2 diabetes mellitus ([facility]) Chronic obstructive pulmonary disease, unspecified ([facility]) Pulmonary emphysema, unspecified emphysema type ([facility]) Bilateral lower extremity edema Tobacco user Tobacco use disorder Hyperpigmentation of skin Other dyschromia Bilateral lower extremity edema documented in [facility] Diagnosis Obstructive sleep apnea- Primary Obstructive sleep apnea (adult) (pediatric) Pulmonary emphysema, unspecified emphysema type ([facility]) Primary hypertension ([facility]) Unspecified essential hypertension Type 2 diabetes mellitus with complication, with long-term current use of insulin ([facility]) Anxiety and depression ([facility]) Bilateral lower extremity edema Pulmonary emphysema, unspecified emphysema type ([facility]/HCC)- Primary Primary hypertension ([facility]) Unspecified essential hypertension Class 3 severe obesity with serious comorbidity and body mass index (BMI) of 50.0 to 59.9 in adult, unspecified obesity type ([facility]) Obstructive sleep apnea Obstructive sleep apnea (adult) (pediatric) Pulmonary hypertension ([facility]) Other chronic pulmonary heart diseases Tobacco user Tobacco use disorder Cardiomegaly Primary hypertension ([facility])- Primary Unspecified essential hypertension [...] to 59.9 in adult, unspecified obesity type ([facility]) Encounter for subsequent annual wellness visit (AWV) in Medicare patient- Primary Type 2 diabetes mellitus with unspecified complications (CMS/HCC) Pulmonary emphysema, unspecified emphysema type (CMS/HCC) Moderate persistent asthma without complication (CMS/HCC) Primary hypertension (CMS/[facility]) Unspecified essential hypertension Type 2 diabetes mellitus with complication, with long-term current use of insulin (CMS/[facility]) Class 3 severe obesity [...] complication, with long-term current use of insulin ([facility]) Non-seasonal allergic rhinitis, unspecified trigger Type 2 diabetes mellitus with unspecified complications ([facility]) Anxiety and depression ([facility]) Gastro-esophageal reflux disease without esophagitis Edema, unspecified Edema Diabetic polyneuropathy associated with type 2 diabetes mellitus ([facility]) Chronic obstructive pulmonary disease, unspecified ([facility]) Pulmonary emphysema, unspecified emphysema type ([facility]) Bilateral lower extremity edema Tobacco user Tobacco use disorder Hyperpigmentation of skin Other dyschromia Primary hypertension ([facility])- Primary Unspecified essential hypertension Diabetic polyneuropathy associated with type 2 diabetes mellitus ([facility]) Pulmonary emphysema, unspecified emphysema type ([facility]) Critical limb ischemia of right lower extremity ([facility]) PAD (peripheral artery disease) ([facility]) Unspecified peripheral vascular disease Gastroesophageal reflux disease, unspecified whether esophagitis present Bilateral lower extremity edema Venous ulcer of right leg ([facility]) Type 2 diabetes mellitus with complication, with long-term current use of insulin ([facility]) Tobacco user Tobacco use disorder Encounter for smoking cessation counseling Kidney stone Calculus of kidney Adrenal mass 1 cm to 4 cm in diameter ([facility]) Radiculopathy, lumbar region Thoracic or lumbosacral neuritis or radiculitis, unspecified Non-seasonal allergic rhinitis, unspecified trigger Type 2 diabetes mellitus with unspecified complications ([facility]) documented [facility] encounter [facility] Healthcare[facility]* Diagnosis Obstructive sleep apnea- Primary Obstructive sleep apnea (adult) (pediatric) Pulmonary emphysema, unspecified emphysema type ([facility]) Primary hypertension ([facility]) Unspecified essential hypertension Type 2 diabetes mellitus with complication, with long-term current use of insulin ([facility]) Anxiety and depression ([facility]) Bilateral lower extremity edema Pulmonary emphysema, unspecified emphysema type ([facility])- Primary Primary hypertension ([facility]) Unspecified essential hypertension Class 3 severe obesity with serious comorbidity and body mass index (BMI) of 50.0 to 59.9 in adult, unspecified obesity type ([facility]) Obstructive sleep apnea Obstructive sleep apnea (adult) (pediatric) Pulmonary hypertension ([facility]) Other chronic pulmonary heart diseases Tobacco user Tobacco use disorder Cardiomegaly Primary hypertension ([facility])- Primary Unspecified essential hypertension [...] to 59.9 in adult, unspecified obesity type ([facility]) Encounter for subsequent annual wellness visit (AWV) in Medicare patient- Primary Type 2 diabetes mellitus with unspecified complications (CMS/HCC) Pulmonary emphysema, unspecified emphysema type (CMS/HCC) Moderate persistent asthma without complication (CMS/HCC) Primary hypertension (CMS/[facility]) Unspecified essential hypertension Type 2 diabetes mellitus with complication, with long-term current use of insulin (CMS/[facility]) Class 3 severe obesity [...] complication, with long-term current use of insulin ([facility]) Non-seasonal allergic rhinitis, unspecified trigger Type 2 diabetes mellitus with unspecified complications ([facility]) Anxiety and depression ([facility]) Gastro-esophageal reflux disease without esophagitis Edema, unspecified Edema Diabetic polyneuropathy associated with type 2 diabetes mellitus ([facility]) Chronic obstructive pulmonary disease, unspecified ([facility]) Pulmonary emphysema, unspecified emphysema type ([facility]) Bilateral lower extremity edema Tobacco user Tobacco use disorder Hyperpigmentation of skin Other dyschromia Primary hypertension ([facility])- Primary Unspecified essential hypertension Diabetic polyneuropathy associated with type 2 diabetes mellitus ([facility]) Pulmonary emphysema, unspecified emphysema type ([facility]) Critical limb ischemia of right lower extremity ([facility]) PAD (peripheral artery disease) ([facility]) Unspecified peripheral vascular disease Gastroesophageal reflux disease, unspecified whether esophagitis present Bilateral lower extremity edema Venous ulcer of right leg ([facility]) Type 2 diabetes mellitus with complication, with long-term current use of insulin ([facility]) Tobacco user Tobacco use disorder Encounter for smoking cessation counseling Kidney stone Calculus of kidney Adrenal mass 1 cm to 4 cm in diameter ([facility]) Radiculopathy, lumbar region Thoracic or lumbosacral neuritis or radiculitis, unspecified Non-seasonal allergic rhinitis, unspecified trigger Type 2 diabetes mellitus with unspecified complications ([facility]) Anxiety and depression ([facility])- Primary Morbid (severe) obesity due to excess calories ([facility]) Body mass index (BMI) 50.0-59.9, adult ([facility]) Malignant neoplasm of cervix uteri, unspecified ([facility]) Diabetic polyneuropathy associated with type 2 diabetes mellitus ([facility]) Chronic diastolic heart failure ([facility]) Chronic diastolic heart failure Primary hypertension ([facility]) Unspecified essential hypertension 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 ([facility]) Gastroesophageal reflux disease, unspecified whether esophagitis present Bilateral lower extremity edema Type 2 diabetes mellitus with complication, with long-term current use of insulin ([facility]) Tobacco user Tobacco use disorder Mixed hyperlipidemia ([facility]) Mixed hyperlipidemia Gout, unspecified cause, unspecified chronicity, unspecified site Vitamin deficiency Unspecified vitamin deficiency Gastro-esophageal reflux disease without esophagitis Edema, unspecified Edema Hyperlipidemia, unspecified ([facility]) Encounter for smoking cessation counseling Venous ulcer of right leg ([facility]) Antibiotic-induced yeast infection documented in this encounter [facility] Healthcare[facility]* Diagnosis Obstructive sleep apnea- Primary Obstructive sleep apnea (adult) (pediatric) Pulmonary emphysema, unspecified emphysema type ([facility]) Primary hypertension ([facility]) Unspecified essential hypertension Type 2 diabetes mellitus with complication, with long-term current use of insulin ([facility]) Anxiety and depression ([facility]) Bilateral lower extremity edema Pulmonary emphysema, unspecified emphysema type ([facility])- Primary Primary hypertension ([facility]) Unspecified essential hypertension Class 3 severe obesity with serious comorbidity and body mass index (BMI) of 50.0 to 59.9 in adult, unspecified obesity type Obstructive sleep apnea Obstructive sleep apnea (adult) (pediatric) Pulmonary hypertension ([facility]) Other chronic pulmonary heart diseases Tobacco user Tobacco use disorder Cardiomegaly Primary hypertension ([facility])- Primary Unspecified essential hypertension Gastroesophageal reflux disease, unspecified whether esophagitis present Type 2 diabetes mellitus with complication, with long-term current use of insulin ([facility]) Mixed hyperlipidemia ([facility]) Mixed hyperlipidemia Tobacco user Tobacco use disorder Encounter for screening mammogram for malignant neoplasm of breast Chronic obstructive pulmonary disease, unspecified Other specified chronic obstructive pulmonary disease Anxiety and depression ([facility]) Edema, unspecified Edema Hyperlipidemia, unspecified ([facility]) Diabetic polyneuropathy associated with type 2 diabetes mellitus ([facility]) Gout, unspecified cause, unspecified chronicity, unspecified site Non-seasonal allergic rhinitis, unspecified trigger Bilateral lower extremity edema COPD exacerbation ([facility]) Obstructive chronic bronchitis with exacerbation Pulmonary emphysema, unspecified emphysema type ([facility]) Venous insufficiency Unspecified venous (peripheral) insufficiency Candidiasis of breast COPD exacerbation ([facility])- Primary Obstructive chronic bronchitis with exacerbation Pulmonary hypertension ([facility]) Other chronic pulmonary heart diseases Class 3 severe obesity with serious comorbidity and body mass index (BMI) of 50.0 to 59.9 in adult, unspecified obesity type Encounter for subsequent annual wellness visit (AWV) in Medicare patient- Primary Type 2 diabetes mellitus with unspecified complications Pulmonary emphysema, unspecified emphysema type ([facility]) Moderate persistent asthma without complication ([facility]) Primary hypertension ([facility]) Unspecified essential hypertension Type 2 diabetes mellitus with complication, with long-term current use of insulin ([facility]) Class 3 severe obesity with serious comorbidity and body mass index (BMI) of 50.0 to 59.9 in adult, unspecified obesity type Tobacco user Tobacco use disorder Other headache syndrome Malignant neoplasm of cervix uteri, unspecified Other specified disorders of adrenal gland Major depressive disorder, single episode, mild (HCC) ([facility]) Major depressive disorder, single episode, mild 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 exposed Chronic respiratory failure, unspecified whether with hypoxia or hypercapnia Disorder of adrenal gland, unspecified Non-pressure chronic ulcer of other part of right lower leg limited to breakdown of skin ([facility]) Non-recurrent acute suppurative otitis media of left ear without spontaneous rupture of tympanic membrane Primary hypertension ([facility])- Primary Unspecified essential hypertension Insomnia Insomnia, unspecified Type 2 diabetes mellitus with complication, with long-term current use of insulin ([facility]) Non-seasonal allergic rhinitis, unspecified trigger Type 2 diabetes mellitus with unspecified complications Anxiety and depression ([facility]) Gastro-esophageal reflux disease without esophagitis Edema, unspecified Edema Diabetic polyneuropathy associated with type 2 diabetes mellitus ([facility]) Chronic obstructive pulmonary disease, unspecified Pulmonary emphysema, unspecified emphysema type ([facility]) Bilateral lower extremity edema Tobacco user Tobacco use disorder Hyperpigmentation of skin Other dyschromia Primary hypertension ([facility])- Primary Unspecified essential hypertension Diabetic polyneuropathy associated with type 2 diabetes mellitus ([facility]) Pulmonary emphysema, unspecified emphysema type ([facility]) Critical limb ischemia of right lower extremity ([facility]) PAD (peripheral artery disease) ([facility]) Unspecified peripheral vascular disease Gastroesophageal reflux disease, unspecified whether esophagitis present Bilateral lower extremity edema Venous ulcer of right leg ([facility]) Type 2 diabetes mellitus with complication, with long-term current use of insulin ([facility]) Tobacco user Tobacco use disorder Encounter for smoking cessation counseling Kidney stone Calculus of kidney Adrenal mass 1 cm to 4 cm in diameter ([facility]) Radiculopathy, lumbar region Thoracic or lumbosacral neuritis or radiculitis, unspecified Non-seasonal allergic rhinitis, unspecified trigger Type 2 diabetes mellitus with unspecified complications Anxiety and depression ([facility])- Primary Morbid (severe) obesity due to excess calories ([facility]) Body mass index (BMI) 50.0-59.9, adult ([facility]) Malignant neoplasm of cervix uteri, unspecified Diabetic polyneuropathy associated with type 2 diabetes mellitus ([facility]) Chronic diastolic heart failure ([facility]) Chronic diastolic heart failure Primary hypertension ([facility]) Unspecified essential hypertension 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 Gastroesophageal reflux disease, unspecified whether esophagitis present Bilateral lower extremity edema Type 2 diabetes mellitus with complication, with long-term current use of insulin ([facility]) Tobacco user Tobacco use disorder Mixed hyperlipidemia ([facility]) Mixed hyperlipidemia Gout, unspecified cause, unspecified chronicity, unspecified site Vitamin deficiency Unspecified vitamin deficiency Gastro-esophageal reflux disease without esophagitis Edema, unspecified Edema [place], [place] [place] for smoking cessation counseling Venous ulcer of right leg [place] [place] Antibiotic-induced yeast infection Type 2 diabetes mellitus with hyperglycemia, with long-term current use of insulin [place] [place] Primary Encounter for dietary consultation Vitamin D deficiency Primary hypertension [place] [place] Unspecified essential hypertension Insulin long-term use [place] [place] Encounter for long-term (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 Hyperlipemia, mixed ([facility]) Mixed hyperlipidemia Microalbuminuria Proteinuria Class 3 severe obesity due to excess calories with serious comorbidity and body mass index (BMI) of 50.0 to 59.9 in adult documented [facility] encounter [facility] Healthcare[facility]* Diagnosis Obstructive sleep apnea- Primary Obstructive sleep apnea (adult) (pediatric) Pulmonary emphysema, unspecified emphysema type ([facility]) Primary hypertension ([facility]) Unspecified essential hypertension Type 2 diabetes mellitus with complication, with long-term current use of insulin [place] [place] Anxiety and depression [place] [place] Bilateral lower extremity edema Pulmonary emphysema, unspecified emphysema type ([facility])- Primary Primary hypertension ([facility]) Unspecified essential hypertension Class 3 severe obesity with serious comorbidity and body mass index (BMI) of 50.0 to 59.9 in adult, unspecified obesity type Obstructive sleep apnea Obstructive sleep apnea (adult) (pediatric) Pulmonary hypertension ([facility]) Other chronic pulmonary heart diseases Tobacco user Tobacco use disorder Cardiomegaly Primary hypertension ([facility])- Primary Unspecified essential hypertension Gastroesophageal reflux disease, unspecified whether esophagitis present Type 2 diabetes mellitus with complication, with long-term current use of insulin (CMS/[facility]) Mixed hyperlipidemia (CMS/[facility]) Mixed hyperlipidemia Tobacco user Tobacco use disorder Encounter for screening mammogram for malignant neoplasm of breast Chronic obstructive pulmonary disease, unspecified Other specified chronic obstructive pulmonary disease Anxiety and depression (CMS/[facility]) Edema, unspecified Edema Hyperlipidemia, unspecified (CMS/[facility]) Diabetic polyneuropathy associated with type 2 diabetes mellitus (CMS/[facility]) Gout, unspecified cause, unspecified chronicity, unspecified site Non-seasonal allergic rhinitis, unspecified trigger Bilateral lower extremity edema COPD exacerbation (CMS/[facility]) Obstructive chronic bronchitis with exacerbation Pulmonary emphysema, unspecified emphysema type (CMS/[facility]) Venous insufficiency Unspecified venous (peripheral) insufficiency Candidiasis of breast COPD exacerbation (CMS/[facility])- Primary Obstructive chronic bronchitis with exacerbation Pulmonary hypertension (CMS/[facility]) Other chronic pulmonary heart diseases Class 3 severe obesity with serious comorbidity and body mass index (BMI) of 50.0 to 59.9 in adult, unspecified obesity type Encounter for subsequent annual wellness visit (AWV) in Medicare patient- Primary Type 2 diabetes mellitus with unspecified complications Pulmonary emphysema, unspecified emphysema type (CMS/[facility]) Moderate persistent asthma without complication (CMS/[facility]) Primary hypertension (CMS/[facility]) Unspecified essential hypertension Type 2 diabetes mellitus with complication, with long-term current use of insulin ([facility]) Class 3 severe obesity with serious comorbidity and body mass index (BMI) of 50.0 to 59.9 in adult, unspecified obesity type Tobacco user Tobacco use disorder Other headache syndrome Malignant neoplasm of cervix uteri, unspecified Other specified disorders of adrenal gland Major depressive disorder, single episode, mild (HCC) (CMS/[facility]) Major depressive disorder, single episode, mild 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 exposed Chronic respiratory failure, unspecified whether with hypoxia or hypercapnia Disorder of adrenal gland, unspecified Non-pressure chronic ulcer of other part of right lower leg limited to breakdown of skin (CMS/[facility]) Non-recurrent acute suppurative otitis media of left ear without spontaneous rupture of tympanic membrane Primary hypertension (CMS/[facility])- Primary Unspecified essential hypertension Insomnia Insomnia, unspecified Type 2 diabetes mellitus with complication, with long-term current use of insulin (CMS/[facility]) Non-seasonal allergic rhinitis, unspecified trigger Type 2 diabetes mellitus with unspecified complications Anxiety and depression ([facility]) Gastro-esophageal reflux disease without esophagitis Edema, unspecified Edema Diabetic polyneuropathy associated with type 2 diabetes mellitus ([facility] [facility] Chronic obstructive pulmonary disease, unspecified Pulmonary emphysema, unspecified emphysema type ([facility]) Bilateral lower extremity edema Tobacco user Tobacco use disorder Hyperpigmentation of skin Other dyschromia Primary hypertension ([facility])- Primary Unspecified essential hypertension Diabetic polyneuropathy associated with type 2 diabetes mellitus ([facility]) Pulmonary emphysema, unspecified emphysema type ([facility]) Critical limb ischemia of right lower extremity ([facility]) PAD (peripheral artery disease) ([facility]) Unspecified peripheral vascular disease Gastroesophageal reflux disease, unspecified whether esophagitis present Bilateral lower extremity edema Venous ulcer of right leg ([facility]) Type 2 diabetes mellitus with complication, with long-term current use of insulin ([facility]) Tobacco user Tobacco use disorder Encounter for smoking cessation counseling Kidney stone Calculus of kidney Adrenal mass 1 cm to 4 cm in diameter [place] [place] Radiculopathy, lumbar region Thoracic or lumbosacral neuritis or radiculitis, unspecified Non-seasonal allergic rhinitis, unspecified trigger Type 2 diabetes mellitus with unspecified complications Anxiety and depression ([facility])- Primary Morbid (severe) obesity due to excess calories ([facility]) Body mass index (BMI) 50.0-59.9, adult ([facility]) Malignant neoplasm of cervix uteri, unspecified Diabetic polyneuropathy associated with type 2 diabetes mellitus ([facility]) Chronic diastolic heart failure ([facility]) Chronic diastolic heart failure Primary hypertension ([facility]) Unspecified essential hypertension 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 Gastroesophageal reflux disease, unspecified whether esophagitis present Bilateral lower extremity edema Type 2 diabetes mellitus with complication, with long-term current use of insulin ([facility]) Tobacco user Tobacco use disorder Mixed hyperlipidemia ([facility]) Mixed hyperlipidemia Gout, unspecified cause, unspecified chronicity, unspecified site Vitamin deficiency Unspecified vitamin deficiency Gastro-esophageal reflux disease without esophagitis Edema, unspecified Edema Hyperlipidemia, unspecified ([facility]) Encounter for smoking cessation counseling Venous ulcer of right leg [place] [place] Antibiotic-induced yeast infection Chronic obstructive pulmonary disease, unspecified documented in this encounter [facility] HealthcareEvaluation note* Diagnosis Obstructive sleep apnea- Primary Obstructive sleep apnea (adult) (pediatric) Pulmonary emphysema, unspecified emphysema type ([facility]) Primary hypertension ([facility]) Unspecified essential hypertension Type 2 diabetes mellitus with complication, with long-term current use of insulin ([facility]) Anxiety and depression ([facility]) Bilateral lower extremity edema Pulmonary emphysema, unspecified emphysema type ([facility])- Primary Primary hypertension ([facility]) Unspecified essential hypertension Class 3 severe obesity with serious comorbidity and body mass index (BMI) of 50.0 to 59.9 in adult, unspecified obesity type Obstructive sleep apnea Obstructive sleep apnea (adult) (pediatric) Pulmonary hypertension ([facility]) Other chronic pulmonary heart diseases Tobacco user Tobacco use disorder Cardiomegaly Primary hypertension ([facility])- Primary Unspecified essential hypertension Gastroesophageal reflux disease, unspecified whether esophagitis present Type 2 diabetes mellitus with complication, with long-term current use of insulin ([facility]) Mixed hyperlipidemia ([facility]) Mixed hyperlipidemia Tobacco user Tobacco use disorder Encounter for screening mammogram for malignant neoplasm of breast Chronic obstructive pulmonary disease, unspecified Other specified chronic obstructive pulmonary disease Anxiety and depression ([facility]) Edema, unspecified Edema Hyperlipidemia, unspecified ([facility]) Diabetic polyneuropathy associated with type 2 diabetes mellitus ([facility]) Gout, unspecified cause, unspecified chronicity, unspecified site Non-seasonal allergic rhinitis, unspecified trigger Bilateral lower extremity edema COPD exacerbation ([facility]) Obstructive chronic bronchitis with exacerbation Pulmonary emphysema, unspecified emphysema type ([facility]) Venous insufficiency Unspecified venous (peripheral) insufficiency Candidiasis of breast COPD exacerbation ([facility])- Primary Obstructive chronic bronchitis with exacerbation Pulmonary hypertension ([facility]) Other chronic pulmonary heart diseases Class 3 severe obesity with serious comorbidity and body mass index (BMI) of 50.0 to 59.9 in adult, unspecified obesity type Encounter for subsequent annual wellness visit (AWV) in Medicare patient- Primary Type 2 diabetes mellitus with unspecified complications Pulmonary emphysema, unspecified emphysema type ([facility]) Moderate persistent asthma without complication ([facility]) Primary hypertension ([facility]) Unspecified essential hypertension Type 2 diabetes mellitus with complication, with long-term current use of insulin ([facility]) Class 3 severe obesity with serious comorbidity and body mass index (BMI) of 50.0 to 59.9 in adult, unspecified obesity type Tobacco user Tobacco use disorder Other headache syndrome Malignant neoplasm of cervix uteri, unspecified Other specified disorders of adrenal gland Major depressive disorder, single episode, mild (HCC) ([facility]) Major depressive disorder, single episode, mild 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 exposed Chronic respiratory failure, unspecified whether with hypoxia or hypercapnia Disorder of adrenal gland, unspecified Non-pressure chronic ulcer of other part of right lower leg limited to breakdown of skin ([facility]) Non-recurrent acute suppurative otitis media of left ear without spontaneous rupture of tympanic membrane Primary hypertension ([facility])- Primary Unspecified essential hypertension Insomnia Insomnia, unspecified Type 2 diabetes mellitus with complication, with long-term current use of insulin ([facility]) Non-seasonal allergic rhinitis, unspecified trigger Type 2 diabetes mellitus with unspecified complications Anxiety and depression ([facility]) Gastro-esophageal reflux disease without esophagitis Edema, unspecified Edema Diabetic polyneuropathy associated with type 2 diabetes mellitus ([facility]) Chronic obstructive pulmonary disease, unspecified Pulmonary emphysema, unspecified emphysema type ([facility]) Bilateral lower extremity edema Tobacco user Tobacco use disorder Hyperpigmentation of skin Other dyschromia Primary hypertension ([facility])- Primary Unspecified essential hypertension Diabetic polyneuropathy associated with type 2 diabetes mellitus ([facility]) Pulmonary emphysema, unspecified emphysema type ([facility]) Critical limb ischemia of right lower extremity ([facility]) PAD (peripheral artery disease) ([facility]) Unspecified peripheral vascular disease Gastroesophageal reflux disease, unspecified whether esophagitis present Bilateral lower extremity edema Venous ulcer of right leg ([facility]) Type 2 diabetes mellitus with complication, with long-term current use of insulin ([facility]) Tobacco user Tobacco use disorder Encounter for smoking cessation counseling Kidney stone Calculus of kidney Adrenal mass 1 cm to 4 cm in diameter ([facility]) Radiculopathy, lumbar region Thoracic or lumbosacral neuritis or radiculitis, unspecified Non-seasonal allergic rhinitis, unspecified trigger Type 2 diabetes mellitus with unspecified complications Anxiety and depression ([facility])- Primary Morbid (severe) obesity due to excess calories ([facility]) Body mass index (BMI) 50.0-59.9, adult ([facility]) Malignant neoplasm of cervix uteri, unspecified Diabetic polyneuropathy associated with type 2 diabetes mellitus ([facility]) Chronic diastolic heart failure ([facility]) Chronic diastolic heart failure Primary hypertension ([facility]) Unspecified essential hypertension 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 Gastroesophageal reflux disease, unspecified whether esophagitis present Bilateral lower extremity edema Type 2 diabetes mellitus with complication, with long-term current use of insulin ([facility]) Tobacco user Tobacco use disorder Mixed hyperlipidemia ([facility]) Mixed hyperlipidemia Gout, unspecified cause, unspecified chronicity, unspecified site Vitamin deficiency Unspecified vitamin deficiency Gastro-esophageal reflux disease without esophagitis Edema, unspecified Edema Hyperlipidemia, unspecified ([facility]) Encounter for smoking cessation counseling Venous ulcer of right leg ([facility]) Antibiotic-induced yeast infection Primary hypertension ([facility])- Primary Unspecified essential hypertension Diabetic polyneuropathy associated with type 2 diabetes mellitus ([facility]) Chronic diastolic heart failure ([facility]) Chronic diastolic heart failure Bilateral lower extremity edema Morbid (severe) obesity due to excess calories ([facility]) Type 2 diabetes mellitus with complication, with long-term current use of insulin ([facility]) An[place] and depression [place] [place] Cigarette nicotine dependence without complication Encounter for screening mammogram for malignant neoplasm of breast Insomnia Insomnia, unspecified Non-seasonal allergic rhinitis, unspecified trigger Type 2 diabetes mellitus with unspecified complications Vitamin D deficiency, unspecified Gastro-esophageal reflux disease without esophagitis PAD (peripheral artery disease) ([facility]) Unspecified peripheral vascular disease Gastroesophageal reflux disease, unspecified whether esophagitis present Venous ulcer of right leg ([facility]) documented [facility] encounter [facility] HealthcareEvaluation note* Diagnosis Obstructive sleep apnea- Primary Obstructive sleep apnea (adult) (pediatric) Pulmonary emphysema, unspecified emphysema type (HCC) Primary hypertension Unspecified essential hypertension Type 2 diabetes mellitus with complication, with long-term current use of insulin ([facility]) Anxiety and depression Bilateral lower extremity edema Pulmonary emphysema, unspecified emphysema type (HCC)- Primary Primary hypertension Unspecified essential hypertension Class 3 severe obesity with serious comorbidity and body mass index (BMI) of 50.0 to 59.9 in adult, unspecified obesity type ([facility]) Obstructive sleep apnea Obstructive sleep apnea (adult) (pediatric) Pulmonary hypertension (HCC) Other chronic pulmonary heart diseases Tobacco user Tobacco use disorder Cardiomegaly Primary hypertension- Primary Unspecified essential hypertension Gastroesophageal reflux disease, unspecified whether esophagitis present Type 2 diabetes mellitus with complication, with long-term current use of insulin ([facility]) Mixed hyperlipidemia Mixed hyperlipidemia Tobacco [...] to 59.9 in adult, unspecified obesity type [place] [place] [facility] [place] Encounter for subsequent annual wellness visit (AWV) in Medicare patient- Primary Type 2 diabetes mellitus with unspecified complications (HCC) Pulmonary emphysema, unspecified emphysema type (HCC) Moderate persistent asthma without complication (HCC) Primary hypertension Unspecified essential hypertension Type 2 diabetes mellitus with complication, with long-term current use of insulin ([facility]) Class 3 severe obesity with serious comorbidity and body mass index (BMI) of 50.0 to 59.9 in adult, unspecified obesity type ([facility]) Tobacco user Tobacco use [...] polyneuropathy associated with type 2 diabetes mellitus ([facility]) Pulmonary emphysema, unspecified emphysema type ([facility]) Critical limb ischemia of right lower extremity ([facility]) PAD (peripheral artery disease) Unspecified peripheral vascular disease Gastroesophageal reflux disease, unspecified whether esophagitis present Bilateral lower extremity edema Venous ulcer of right leg ([facility]) Type 2 diabetes mellitus with complication, with long-term current use of insulin ([facility]) Tobacco user Tobacco use disorder Encounter for smoking cessation counseling Kidney stone Calculus of kidney Adrenal mass 1 cm to 4 cm in diameter ([facility]) Radiculopathy, lumbar region Thoracic or lumbosacral neuritis or radiculitis, unspecified Non-seasonal allergic rhinitis, unspecified trigger Type 2 diabetes mellitus with unspecified complications ([facility]) Anxiety and depression- Primary Morbid (severe) obesity due to excess calories ([facility] [place] [place] Body mass index (BMI) 50.0-59.9, adult ([facility] [place] Malignant neoplasm of cervix uteri, unspecified ([facility]) Diabetic polyneuropathy associated with type 2 diabetes mellitus ([facility]) Chronic diastolic heart failure (HCC) Chronic diastolic heart failure Primary hypertension Unspecified essential hypertension 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 ([facility]) Gastroesophageal reflux disease, unspecified whether esophagitis present Bilateral lower extremity edema Type 2 diabetes mellitus with complication, with long-term current use of insulin ([facility]) Tobacco user Tobacco use disorder Mixed hyperlipidemia Mixed hyperlipidemia Gout, unspecified cause, unspecified chronicity, unspecified site Vitamin deficiency Unspecified vitamin deficiency Gastro-esophageal reflux disease without esophagitis Edema, unspecified Edema Hyperlipidemia, unspecified Encounter for smoking cessation counseling Venous ulcer of right leg ([facility]) Antibiotic-induced yeast infection Primary hypertension- Primary Unspecified essential hypertension Diabetic polyneuropathy associated with type 2 diabetes mellitus (HCC) Chronic diastolic heart failure (HCC) Chronic diastolic heart failure Bilateral lower extremity edema Morbid (severe) obesity due to excess calories ([facility] [place] Type 2 diabetes mellitus with complication, with long-term current use of insulin ([facility]) Anxiety and depression Cigarette nicotine dependence without complication Encounter for screening mammogram for malignant neoplasm of breast Insomnia Insomnia, unspecified Non-seasonal allergic rhinitis, unspecified trigger Type 2 diabetes mellitus with unspecified complications ([facility]) Vitamin D deficiency, unspecified Gastro-esophageal reflux disease without esophagitis PAD (peripheral artery disease) Unspecified peripheral vascular disease Gastroesophageal reflux disease, unspecified whether esophagitis present Venous ulcer of right leg ([facility]) Cellulitis of left lower extremity- Primary COPD exacerbation (HCC) Obstructive chronic bronchitis with exacerbation Primary hypertension Unspecified essential hypertension Pulmonary hypertension (HCC) Other chronic pulmonary heart diseases Morbid (severe) obesity due to excess calories ([facility]) Type 2 diabetes mellitus with complication, with long-term current use of insulin ([facility]) Anxiety and depression Fever, unspecified fever cause Hyperlipidemia, unspecified Tobacco user Tobacco use disorder Encounter for smoking cessation counseling documented in this encounter [facility] HealthcareEvaluation note* Diagnosis Obstructive sleep apnea- Primary Obstructive sleep apnea (adult) (pediatric) Pulmonary emphysema, unspecified emphysema type ([facility]) Primary hypertension ([facility]) Unspecified essential hypertension Type 2 diabetes mellitus with complication, with long-term current use of insulin ([facility]) Anxiety and depression ([facility]) Bilateral lower extremity edema Pulmonary emphysema, unspecified emphysema type ([facility]/HCC)- Primary Primary hypertension ([facility]) Unspecified essential hypertension Class 3 severe obesity with serious comorbidity and body mass index (BMI) of 50.0 to 59.9 in adult, unspecified obesity type Obstructive sleep apnea Obstructive sleep apnea (adult) (pediatric) Pulmonary hypertension ([facility]) Other chronic pulmonary heart diseases Tobacco user Tobacco use disorder Cardiomegaly Primary hypertension ([facility])- Primary Unspecified essential hypertension Gastroesophageal reflux disease, unspecified whether esophagitis present Type 2 diabetes mellitus with complication, with long-term current use of insulin ([facility]) Mixed hyperlipidemia ([facility]) Mixed hyperlipidemia Tobacco user Tobacco use disorder Encounter for screening mammogram for malignant neoplasm of breast Chronic obstructive pulmonary disease, unspecified Other specified chronic obstructive pulmonary disease Anxiety and depression ([facility]) Edema, unspecified Edema Hyperlipidemia, unspecified ([facility]) Diabetic polyneuropathy associated with type 2 diabetes mellitus ([facility]) Gout, unspecified cause, unspecified chronicity, unspecified site Non-seasonal allergic rhinitis, unspecified trigger Bilateral lower extremity edema COPD exacerbation ([facility]) Obstructive chronic bronchitis with exacerbation Pulmonary emphysema, unspecified emphysema type ([facility]/HCC) Venous insufficiency Unspecified venous (peripheral) insufficiency Candidiasis of breast COPD exacerbation ([facility])- Primary Obstructive chronic bronchitis with exacerbation Pulmonary hypertension ([facility]) Other chronic pulmonary heart diseases Class 3 severe obesity with serious comorbidity and body mass index (BMI) of 50.0 to 59.9 in adult, unspecified obesity type Encounter for subsequent annual wellness visit (AWV) in Medicare patient- Primary Type 2 diabetes mellitus with unspecified complications Pulmonary emphysema, unspecified emphysema type ([facility]) Moderate persistent asthma without complication ([facility]) Primary hypertension ([facility]) Unspecified essential hypertension Type 2 diabetes mellitus with complication, with long-term current use of insulin ([facility]) Class 3 severe obesity with serious comorbidity and body mass index (BMI) of 50.0 to 59.9 in adult, unspecified obesity type Tobacco user Tobacco use disorder Other headache syndrome Malignant neoplasm of cervix uteri, unspecified Other specified disorders of adrenal gland Major depressive disorder, single episode, mild (HCC) ([facility]) Major depressive disorder, single episode, mild 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 exposed Chronic respiratory failure, unspecified whether with hypoxia or hypercapnia Disorder of adrenal gland, unspecified Non-pressure chronic ulcer of other part of right lower leg limited to breakdown of skin ([facility]) Non-recurrent acute suppurative otitis media of left ear without spontaneous rupture of tympanic membrane Primary hypertension ([facility])- Primary Unspecified essential hypertension Insomnia Insomnia, unspecified Type 2 diabetes mellitus with complication, with long-term current use of insulin ([facility]) Non-seasonal allergic rhinitis, unspecified trigger Type 2 diabetes mellitus with unspecified complications Anxiety and depression ([facility]) Gastro-esophageal reflux disease without esophagitis Edema, unspecified Edema Diabetic polyneuropathy associated with type 2 diabetes mellitus ([facility]) Chronic obstructive pulmonary disease, unspecified Pulmonary emphysema, unspecified emphysema type (CMS/HCC) Bilateral lower extremity edema Tobacco user Tobacco use disorder Hyperpigmentation of skin Other dyschromia Primary hypertension (CMS/[facility])- Primary Unspecified essential hypertension Diabetic polyneuropathy associated with type 2 diabetes mellitus (CMS/[facility]) Pulmonary emphysema, unspecified emphysema type ([facility]/HCC) Critical limb ischemia of right lower extremity ([facility]) PAD (peripheral artery disease) ([facility]) Unspecified peripheral vascular disease Gastroesophageal reflux disease, unspecified whether esophagitis present Bilateral lower extremity edema Venous ulcer of right leg ([facility]) Type 2 diabetes mellitus with complication, with long-term current use of insulin ([facility]) Tobacco user Tobacco use disorder Encounter for smoking cessation counseling Kidney stone Calculus of kidney Adrenal mass 1 cm to 4 cm in diameter ([facility]) Radiculopathy, lumbar region Thoracic or lumbosacral neuritis or radiculitis, unspecified Non-seasonal allergic rhinitis, unspecified trigger Type 2 diabetes mellitus with unspecified complications Anxiety and depression ([facility])- Primary Morbid (severe) obesity due to excess calories ([facility]) Body mass index (BMI) 50.0-59.9, adult ([facility]) Malignant neoplasm of cervix uteri, unspecified Diabetic polyneuropathy associated with type 2 diabetes mellitus ([facility]) Chronic diastolic heart failure ([facility]) Chronic diastolic heart failure Primary hypertension ([facility]) Unspecified essential hypertension 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 Gastroesophageal reflux disease, unspecified whether esophagitis present Bilateral lower extremity edema Type 2 diabetes mellitus with complication, with long-term current use of insulin ([facility]) Tobacco user Tobacco use disorder Mixed hyperlipidemia ([facility]) Mixed hyperlipidemia Gout, unspecified cause, unspecified chronicity, unspecified site Vitamin deficiency Unspecified vitamin deficiency Gastro-esophageal reflux disease without esophagitis Edema, unspecified Edema Hyperlipidemia, unspecified ([facility]) Encounter for smoking cessation counseling Venous ulcer of right leg ([facility]) Antibiotic-induced yeast infection Primary hypertension ([facility])- Primary Unspecified essential hypertension Diabetic polyneuropathy associated with type 2 diabetes mellitus ([facility]) Chronic diastolic heart failure ([facility]) Chronic diastolic heart failure Bilateral lower extremity edema Morbid (severe) obesity due to excess calories ([facility]) Type 2 diabetes mellitus with complication, with long-term current use of insulin ([facility]) Anxiety and depression ([facility]) Cigarette nicotine dependence without complication Encounter for screening mammogram for malignant neoplasm of breast Insomnia Insomnia, unspecified Non-seasonal allergic rhinitis, unspecified trigger Type 2 diabetes mellitus with unspecified complications Vitamin D deficiency, unspecified Gastro-esophageal reflux disease without esophagitis PAD (peripheral artery disease) ([facility]) Unspecified peripheral vascular disease Gastroesophageal reflux disease, unspecified whether esophagitis present Venous ulcer of right leg ([facility]) Cellulitis of left lower extremity- Primary COPD exacerbation ([facility]) Obstructive chronic bronchitis with exacerbation Primary hypertension ([facility]) Unspecified essential hypertension Pulmonary hypertension ([facility]) Other chronic pulmonary heart diseases Morbid (severe) obesity due to excess calories (CMS/HCC) Type 2 diabetes mellitus with complication, with long-term current use of insulin (CMS/HCC) Anxiety and depression (CMS/[facility]) Fever, unspecified fever cause documented [...] to 59.9 in adult, unspecified obesity type ([facility]) Obstructive sleep apnea Obstructive [...] to 59.9 in adult, unspecified obesity type ([facility]) Encounter for subsequent annual [...] to 59.9 in adult, unspecified obesity type ([facility] [place] Tobacco user Tobacco use disorder Other headache syndrome Malignant neoplasm of cervix uteri, unspecified ([facility]) Other specified disorders of adrenal gland ([facility]) Major depressive disorder, single episode, mild Major depressive disorder, single episode, mild 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 exposed ([facility]) Chronic respiratory failure, unspecified whether with hypoxia or hypercapnia ([facility]) Disorder of adrenal gland, unspecified ([facility]) Non-pressure chronic ulcer of other part of right lower leg limited to breakdown of skin ([facility]) Non-recurrent acute suppurative otitis media of left ear without spontaneous rupture of tympanic membrane Primary hypertension- Primary Unspecified essential hypertension Insomnia Insomnia, unspecified Type 2 diabetes mellitus with complication, with long-term current use of insulin ([facility]) Non-seasonal allergic rhinitis, unspecified trigger Type 2 diabetes mellitus with unspecified complications ([facility]) Anxiety and depression Gastro-esophageal reflux disease without esophagitis Edema, unspecified Edema Diabetic polyneuropathy associated with type 2 diabetes mellitus ([facility]) Chronic obstructive pulmonary disease, unspecified ([facility]) Pulmonary emphysema, unspecified emphysema type ([facility]) Bilateral lower extremity edema Tobacco user Tobacco use disorder Hyperpigmentation of skin Other dyschromia Primary hypertension- Primary Unspecified essential hypertension Diabetic polyneuropathy associated with type 2 diabetes mellitus ([facility]) Pulmonary emphysema, unspecified emphysema type ([facility]) Critical limb ischemia of right lower extremity ([facility] [place]) PAD (peripheral artery disease) Unspecified peripheral vascular disease Gastroesophageal reflux disease, unspecified whether esophagitis present Bilateral lower extremity edema Venous ulcer of right leg ([facility]) Type 2 diabetes mellitus with complication, with long-term current use of insulin ([facility]) Tobacco user Tobacco use disorder Encounter for smoking cessation counseling Kidney stone Calculus of kidney Adrenal mass 1 cm to 4 cm in diameter ([facility]) Radiculopathy, lumbar region Thoracic or lumbosacral neuritis or radiculitis, unspecified Non-seasonal allergic rhinitis, unspecified trigger Type 2 diabetes mellitus with unspecified complications ([facility]) Anxiety and depression- Primary Morbid (severe) obesity due to excess calories ([facility] [place]) Body mass index (BMI) 50.0-59.9, adult ([facility] [place]) Malignant neoplasm of cervix uteri, unspecified ([facility]) Diabetic polyneuropathy associated with type 2 diabetes mellitus ([facility]) Chronic diastolic heart failure (HCC) [...] Morbid (severe) obesity due to excess calories ([facility]) Type 2 diabetes mellitus [...] Morbid (severe) obesity due to excess calories ([facility]) Type 2 diabetes mellitus [...] polyneuropathy associated with type 2 diabetes mellitus ([facility]) Pulmonary emphysema, unspecified emphysema type ([facility]) Moderate persistent asthma without complication (HCC) Insomnia Insomnia, unspecified Non-seasonal allergic rhinitis, unspecified trigger Type 2 diabetes mellitus with unspecified complications (HCC) Anxiety and depression Antibiotic-induced yeast infection Chronic obstructive pulmonary disease, unspecified (HCC) Hyperlipidemia, unspecified Vaginal yeast infection Candidiasis of vulva and vagina Morbid (severe) obesity due to excess calories ([facility]-HCC) Type 2 diabetes mellitus with hyperglycemia, with long-term current use of insulin (HCC) documented in this encounter [facility] HealthcareEvaluation [facility]* Diagnosis Obstructive sleep apnea- [...] to 59.9 in adult, unspecified obesity type ([facility]) Obstructive sleep apnea Obstructive [...] to 59.9 in adult, unspecified obesity type ([facility]) Encounter for subsequent annual [...] to 59.9 in adult, unspecified obesity type ([facility]) Tobacco user Tobacco use disorder Other headache syndrome Malignant neoplasm of cervix uteri, unspecified (HCC) Other specified disorders of adrenal gland ([facility]) Major depressive disorder, single episode, mild Major depressive disorder, single episode, mild 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 exposed ([facility]) Chronic respiratory failure, unspecified whether with hypoxia or hypercapnia ([facility]) Disorder of adrenal gland, unspecified ([facility]) Non-pressure chronic ulcer of other part of right lower leg limited to breakdown of skin ([facility]) Non-recurrent acute suppurative otitis media of left ear without spontaneous rupture of tympanic membrane Primary hypertension- Primary Unspecified essential hypertension Insomnia Insomnia, unspecified Type 2 diabetes mellitus with complication, with long-term current use of insulin ([facility]) Non-seasonal allergic rhinitis, unspecified trigger Type 2 diabetes mellitus with unspecified complications ([facility]) Anxiety and depression Gastro-esophageal reflux disease without esophagitis Edema, unspecified Edema Diabetic polyneuropathy associated with type 2 diabetes mellitus ([facility]) Chronic obstructive pulmonary disease, unspecified ([facility]) Pulmonary emphysema, unspecified emphysema type ([facility]) Bilateral lower extremity edema Tobacco user Tobacco use disorder Hyperpigmentation of skin Other dyschromia Primary hypertension- Primary Unspecified essential hypertension Diabetic polyneuropathy associated with type 2 diabetes mellitus ([facility]) Pulmonary emphysema, unspecified emphysema type ([facility]) Critical limb ischemia of right lower extremity ([facility]) PAD (peripheral artery disease) Unspecified peripheral vascular disease Gastroesophageal reflux disease, unspecified whether esophagitis present Bilateral lower extremity edema Venous ulcer of right leg ([facility]) Type 2 diabetes mellitus with complication, with long-term current use of insulin ([facility]) Tobacco user Tobacco use disorder Encounter for smoking cessation counseling Kidney stone Calculus of kidney Adrenal mass 1 cm to 4 cm in diameter ([facility]) Radiculopathy, lumbar region Thoracic or lumbosacral neuritis or radiculitis, unspecified Non-seasonal allergic rhinitis, unspecified trigger Type 2 diabetes mellitus with unspecified complications ([facility]) Anxiety and depression- Primary Morbid (severe) obesity due to excess calories ([facility] [place] Body mass index (BMI) 50.0-59.9, adult ([facility] [place]) Malignant neoplasm of cervix uteri, unspecified ([facility]) Diabetic polyneuropathy associated with type 2 diabetes mellitus ([facility]) Chronic diastolic heart failure (HCC) [...] Morbid (severe) obesity due to excess calories ([facility]) Type 2 diabetes mellitus [...] Morbid (severe) obesity due to excess calories ([facility]) Type 2 diabetes mellitus [...] Morbid (severe) obesity due to excess calories ([facility]) Encounter for dietary consultation- Primary Type 2 diabetes mellitus with hyperglycemia, with long-term current use of insulin (HCC) Vitamin D deficiency Primary hypertension Unspecified essential hypertension Insulin long-term use ([facility]) Encounter for long-term (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 Hyperlipemia, mixed Mixed hyperlipidemia Microalbuminuria Proteinuria Class 3 severe obesity due to excess calories with serious comorbidity and body mass index (BMI) of 50.0 to 59.9 in adult ([facility]) documented in this encounter [facility] [...] History sepsis 2010 Hospitalization History SEE ABOVE [employer] Other Hospital course Narrative No data available for this section [facility] [employer] progress note No data available for this section [facility] [employer] reason for referral (narrative) , Referral to Dr. 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 Advance Directives and Living Will Power of First Helper Summary Purpose Family History No Family History Records FoundNo Family History Records FoundNo Family History Records FoundNo Family History Records Found No data available for this section No Family History Records FoundNo Family History Records Found Additional Source Comments INFORMATION SOURCE (unrecogn ized section and content) DATE CREATED AUTHOR 10/30/2019 [facility] DATE CREATED AUTHOR AUTHOR'S ORGANIZ ATION 09/15/2020 [facility] DATE CREATED AUTHOR AUTHOR'S ORGANIZ ATION 12/19/2022 [facility] DATE CREATED AUTHOR AUTHOR'S ORGANIZ ATION 06/03/2024 [facility] DATE CREATED AUTHOR AUTHOR'S ORGANIZ ATION 01/30/2025 [facility] EPIC DATE CREATED AUTHOR AUTHOR'S ORGANIZ ATION 02/06/2025 [facility] (unrecognized sect ion and content) Kiln Pusher Relationship Specialty Start Date End Date Ty Amin MD PCP - General Family Medicine 01/05/23 Kiln Pusher Relationship Specialty Start Date End Date Ty Amin MD PCP - General Family Medicine 01/05/23 Kiln Pusher Relationship Specialty Start Date End Date Ty Amin MD [address] [place] [phone] PCP - General Family Medicine 09/20/23 Mckayla Blas NP [address] [place] [phone] PCP - [facility] 09/07/23 09/05/90 Mckayla Blas NP [address] [place] [phone] Nurse Practitioner Family Medicine 09/20/23 Kiln Pusher Relationship Specialty Start Date End Date Ty Amin MD [address] [place] [phone] PCP - General Family Medicine 09/20/23 Mckayla Blas NP [address] [place] [address] PCP - [facility] 09/07/23 09/05/90 Mckayla Blas NP [address] [place] [address] Nurse Practitioner Family Medicine 09/20/23 Kiln Pusher Relationship Specialty Start Date End Date Ty Amin MD [address] [place] [phone] PCP - General Family Medicine 09/20/23 Mckayla Blas NP [address] [place] [address] PCP [facility] 09/07/23 09/05/90 Mckayla Blas NP [address] [place] [address] Nurse Practitioner Family Medicine 09/20/23 Kiln Pusher Relationship Specialty Start Date End Date Ty Amin MD [address] [place] [phone] PCP - General Family [facility] 09/20/23 Mckayla Blas NP [address] [place] [phone] PCP [facility] 09/07/23 09/05/90 Mckayla Blas NP [address] [place] [address] Nurse Practitioner Family Medicine 09/20/23 Kiln Pusher Relationship Specialty Start Date End Date Ty Amin MD [address] [place] [phone] PCP - General Family Medicine 09/20/23 Mckayla Blas NP [address] [place] [phone] PCP - [facility] 09/07/23 09/05/90 Mckayla Blas NP [address] [place] [address] Nurse Practitioner Family Medicine 09/20/23 Kiln Pusher Relationship Specialty Start Date End Date Ty Amin MD [address] [place] [phone] PCP - General Family Medicine 09/20/23 Mckayla Blas NP [address] [place] [address] [facility] 09/07/23 09/05/90 Mckayla Blas NP [address] [place] [address] Nurse Practitioner Family Medicine 09/20/23 Kiln Pusher Relationship Specialty Start Date End Date Ty Amin MD [address] [place] [address] PCP - General Family Medicine 09/20/23 Mckayla Blas NP [address] [place] [address] [facility] 09/07/23 09/05/90 Mckayla Blas NP [address] [place] [address] Nurse Practitioner Family Medicine 09/20/23 Kiln Pusher Relationship Specialty Start Date End Date Ty Amin MD [address] [place] [address] PCP - General Family Medicine 09/20/23 Mckayla Blas NP [address] [place] [phone] PCP [facility] 09/07/23 09/05/90 Mckayla Blas NP [address] [place] [address] Nurse Practitioner Family Medicine 09/20/23 Kiln Pusher Relationship Specialty Start Date End Date Ty mAin MD [address] [place] [address] PCP - General Family [facility] 09/20/23 Mckayla Blas NP [address] [place] [address] PCP [facility] 09/07/23 09/05/90 Mckayla Blas NP [address] [place] [address] Nurse Practitioner Family Medicine 09/20/23 Kiln Pusher Relationship Specialty Start Date End Date Ty Amin MD [address] [place] [address] PCP - General Family Medicine 09/20/23 Mckayla Blas NP [address] [place] [address] PCP - [facility] 09/07/23 09/05/90 Mckayla Blas NP [address] [place] [address] Nurse Practitioner Family Medicine 09/20/23 Kiln Pusher Relationship Specialty Start Date End Date Ty Amin MD [address] [place] [address] PCP - General Family Medicine 09/20/23 Mckayla Blas NP [address] [place] [address] [facility] 09/07/23 09/05/90 Mckayla Blas NP [address] [place] [address] Nurse Practitioner Family Medicine 09/20/23 Kiln Pusher Relationship Specialty Start Date End Date Ty Amin MD [address] [place] [phone] PCP - General Family Medicine 09/20/23 Mckayla Blas NP [address] [place] [address] [facility] 09/07/23 09/05/90 Mckayla Blas NP [address] [place] [address] Nurse Practitioner Family Medicine 09/20/23 Kiln Pusher Relationship Specialty Start Date End Date Ty Amin MD [address] [place] [address] PCP - General Family Medicine 09/20/23 Mckayla Blas NP [address] [place] [address] PCP [facility] 09/07/23 09/05/90 Mckayla Blas NP [address] [place] [address] Nurse Practitioner Family Medicine 09/20/23 Kiln Pusher Relationship Specialty Start Date End Date Ty Amin MD [address] [place] [phone] PCP - General Family [facility] 09/20/23 Mckayla Blas NP [address] [place] [address] PCP [facility] 09/07/23 09/05/90 Mckayla Blas NP [address] [place] [address] Nurse Practitioner Family Medicine 09/20/23 Kiln Pusher Relationship Specialty Start Date End Date Ty Amin MD [address] [place] [address] PCP - General Family Medicine 09/20/23 Mckayla Blas NP [address] [place] [address] PCP - [facility] 09/07/23 09/05/90 Mckayla Blas NP [address] [place] [address] Nurse Practitioner Family Medicine 09/20/23 Kiln Pusher Relationship Specialty Start Date End Date Ty Amin MD [address] [place] [address] PCP - General Family Medicine 09/20/23 Mckayla Blas NP [address] [place] [address] [facility] 09/07/23 09/05/90 Mckayla Blas NP [address] [place] [address] Nurse Practitioner Family Medicine 09/20/23 Kiln Pusher Relationship Specialty Start Date End Date Ty Amin MD [address] [place] [address] PCP - General Family Medicine 09/20/23 Mckayla Blas NP [address] [place] [address] [facility] 09/07/23 09/05/90 Mckayla Blas NP [address] [place] [address] Nurse Practitioner Family Medicine 09/20/23 Kiln Pusher Relationship Specialty Start Date End Date Ty Amin MD [address] [place] [address] PCP - General Family Medicine 09/20/23 Mckayla Blas NP [address] [place] [address] PCP [facility] 09/07/23 09/05/90 Mckayla Blas NP [address] [place] [address] Nurse Practitioner Family Medicine 09/20/23 Kiln Pusher Relationship Specialty Start Date End Date Ty Amin MD [address] [place] [address] PCP - General Family [facility] 09/20/23 Mckayla Blas NP [address] [place] [address] PCP [facility] 09/07/23 09/05/90 Mckayla Blas NP [address] [place] [address] Nurse Practitioner Family Medicine 09/20/23 Kiln Pusher Relationship Specialty Start Date End Date Ty Amin MD [address] [place] [address] PCP - General Family Medicine 09/20/23 Mckayla Blas NP [address] [place] [address] PCP - [facility] 09/07/23 09/05/90 Mckayla Blas NP [address] [place] [address] Nurse Practitioner Family Medicine 09/20/23 Kiln Pusher Relationship Specialty Start Date End Date Ty Amin MD [address] [place] [address] PCP - General Family Medicine 09/20/23 Mckayla Blas NP [address] [place] [address] Nurse Practitioner Family Medicine 09/20/23 Kiln Pusher Relationship Specialty Start Date End Date Ty Amin MD [address] [place] [address] PCP - General Family Medicine 09/20/23 Mckayla Blas NP [address] [place] [address] Nurse Practitioner Family Medicine 09/20/23 Kiln Pusher Relationship Specialty Start Date End Date Ty Amin MD [address] [place] [address] PCP - General Family Medicine 09/20/23 Mckayla Blas NP [address] [place] [address] Nurse Practitioner Family Medicine 09/20/23 Kiln Pusher Relationship Specialty Start Date End Date Ty Amin MD [address] [place] [address] PCP - General Family Medicine 09/20/23 Mckayla [...] BE BASED ON THE PRIMARY CLINICAL RECORDS. [facility]. provides no warranty or guarantee of the accuracy or completeness of information in this document.
== END 2025-02-23 11:06 | disposition home or self-care (01) ==
LOC: WC 12:31
PROVIDERS: PCP Nurse Practitioner; Visit Provider Physician Assistant
DX: I87.332 Chronic venous hypertension (idiopathic) with ulcer and inflammation of left lower extremity (principal); L97.822 Non-pressure chronic ulcer of other part of left lower leg with fat layer exposed; I87.311 Chronic venous hypertension (idiopathic) with ulcer of right lower extremity; L97.812 Non-pressure chronic ulcer of other part of right lower leg with fat layer exposed
CPT/HCPCS: 29581

== ENCOUNTER 2025-02-25 13:13 | Outpatient (OUT) | payer MEDICARE, SELFPAY ==
--- OUTSIDE RECORDS SUMMARY | 2024-04-07 05:07 | XMS_ITS ---
Author Organization [facility] in [place] Address [address] [place] [address] Care Team Providers Care Engagement Mgr Name Role Phone Mckayla Blas CNP Primary Care Provider Armando Limon Unavailable [phone] REASON FOR VISIT Varenicline Tartrate (Starter) Refill Request Encounters Encounter Location Date Provider Diagnosis Pulmonary Medicine [place] [address] [place] [address] 04/07/2024 Armando Yañez Plan Of Treatment No Information Progress Notes * Mitzi MACIAS LDOB:[birth year] (53 yo F)Acc No.[id number]:04/07/2024 Patient: Mitzi COX :1970 A ge:53 Y S ex:Female Address:[address] [place] [phone] * true * Date: Generated for Tiffanyi terrence/Falupeg/eTransmitting on: 0 02/25/2025 01:14 PM EDT
--- OUTSIDE RECORDS SUMMARY | 2024-12-02 05:30 | XMS_ITS ---
Author Organization The [facility] in [place] Address [address] [place] [address] Care Team Providers Care Machine Cloth Measurer Name Role Phone Mckayla Blas CNP Primary Care Provider Armando Limon Unavailable [phone] REASON FOR VISIT 1YEAR-COPD Encounters Encounter Location Date Provider Diagnosis Pulmonary Medicine [place] [address] [place] [address] 12/02/2024 Armando Yañez Plan Of Treatment No Information Progress Notes * Mitzi MACIAS LDOB:[birth year] (54 yo F)Acc No.[id number]:12/02/2024 UNLOCKED PROGRESS NOTE Follow Up Patient: Mitzi COX Provider: Tray Yañez DO :1970 A ge:54 Y S ex:Female Date:12/02/2024 Address:[address] [place], [place] [address] Pcp:Mckayla Blas CNP Subjective: * Chief Complaints: * 1 . 1YEAR-COPD. * Medical History: Objective: * Vitals: Assessment: Plan: * Treatment: * * Electronic signature of Radha Yañez DO on 02/25/2025 at 01:15 PM EDT Sign off status: Pending Visit Status: N /S N/C (No Show/No Charge) * Provider: Tray Yañez DO Date: 0 12/02/2024 Generated for Vanessa ocampo/Luis/eTransmitting on: 0 02/25/2025 01:15 PM EDT
--- OUTSIDE RECORDS SUMMARY | 2024-12-02 05:47 | XMS_ITS ---
Author Organization The [facility] in [place] Address [address] [place] [address] Care Team Providers Care Janitorial Maintenance Worker Name Role Phone Mckayla Blas CNP Primary Care Provider Armando Limon [phone] REASON FOR VISIT No Show Appointment Encounters Encounter Location Date Provider Diagnosis Pulmonary Medicine [place] [address] [place] [address] 12/02/2024 Armando Yañez Plan Of Treatment No Information Progress Notes * MACIASMitzi CARPIO LDOB:[birth year] (54 yo F)Acc No.[id number]:12/02/2024 Patient: Mitzi COX :1970 A ge:54 Y S ex:Female Address:[address] [place] [phone] * true * Date: Generated for Tiffanyi terrence/Luis/eTransmitting on: 0 02/25/2025 01:15 PM EDT
--- OUTSIDE RECORDS SUMMARY | 2025-02-25 13:15 | XMS_ITS | Clinical Summary ---
Author Organization [facility] Address [address] [place] [address] Care Team Providers Care Wire Frame Lampshade Maker Name Role Phone Ty Amin MD Primary Care Provider [phone] Mckayla Blas NP Unavailable [phone] Allergies No known active allergies Medications [...] if needed for wheezing Active HYDROcodone-acet aminophen ([place]) 5-325 MG tablet 1 tablet as needed [...] 025 Active ergocalciferol (Vitamin D2) 1.25 MG (75094 UT) capsuleIndicatio ns:Vitamin D deficiency, unspecified Take [...] 1 025 2024 Active lisinopril 20 MG tabletIndication [...] mg) by mouth at bedtime 90 tablet 025 2024 Active insulin glargine (Lantus) 100 UNIT/ML injectionIndicat ions:Type 2 diabetes mellitus with hyperglycemia, with long-term current use of insulin ([facility]) Inject 58 Units under the skin in the morning and 58 Units before bedtime. 104.4 mL 1 025 2025 Active insulin glargine (Lantus SoloStar) 100 UNIT/ML penIndications:T ype 2 diabetes mellitus with hyperglycemia, with long-term current use of insulin ([facility]) INJECT 58 UNITS SUBCUTANEOUSLY TWICE A DAY 105 mL 2 Active insulin glargine (Lantus) 100 UNIT/ML injection Inject 58 Units under the skin in the morning and 58 Units before bedtime. 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 025 Non-pressure [...] see if helps Encounter for subsequent [facility] wellness visit (AWV) in Medicare patient [...] can try ubrelvy #3 samples given: Lot [id number], exp 03/2025 Mixed incontinence 11/14/2023 Arthritis 11/14/2023 [...] they take over prescribing Pancreatitis ([facility]) 09/17/2023 COPD exacerbation 09/17/2023 Assessment & Plan [...] Plan (01/26/2025 7:52 AM EDT): Has seen [facility] Cardiology Assessment & Plan (12/09/2024 7:23 AM EDT): Has seen [facility] Cardiology Assessment & Plan (11/15/2023 3:49 PM EDT): Saw [facility] Cardiology See notes Going to see Pulmonary Assessment & Plan (09/27/2023 1:03 PM EDT): Needs to wear her PAP I am also going to have her see [facility] Cardiology as well PAD (peripheral artery [...] Plan (08/27/2024 6:06 PM EST): Continue with lyrica, pain mgmt is prescribing [...] Plan (01/26/2025 6:44 PM EDT): Follows with samsa Needs smoking cessation [...] spiriva Will trial breztri: #2 samples given [id number], exp 03/03, rinse mouth after use Give [...] PM EDT): Current meds: albuterol, duoneb, 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 Assessment & Plan (08/27/2024 7:30 AM EST): Current meds: albuterol, duoneb, 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 Assessment & Plan (01/17/2024 [...] lost script I did contact [facility] [place], they will get another fill on this [...] Plan (07/10/2023 11:59 AM EST): Continue w pamela, discussed skin care regimines as well RAGHU [...] of the risks of continued smoking: stroke, RI, all forms of cancer, lung disease, and [...] of the risks of continued smoking: stroke, RI, all forms of cancer, lung disease, and [...] Department Care Team Description 02/18/2025 Abstract [facility] [address] [place] [address] Mckayla Blas NP 02/14/2025 Refill [facility] [address] [place] [address] Rain Odonnell MD Type 2 diabetes mellitus with hyperglycemia, with long-term current use of insulin ([facility]) 01/29/2025 9:40 AM EDT Office Visit [facility] [address] [place] [address] Rain Odonnell MD Encounter for dietary consultation (Primary Dx); Type 2 diabetes mellitus with hyperglycemia, with long-term current use of insulin ([facility]); Vitamin D deficiency; Primary hypertension ; Insulin long-term use ([facility]); Hyperlipemia, mixed ; Microalbuminuria; Class 3 severe obesity due to excess calories with serious comorbidity and body mass index (BMI) of 50.0 to 59.9 in adult ([facility]) 01/29/2025 Clinisync Result Encounter [facility] External Department Unsolicited Provider, Generic External Data 01/29/2025 Bamboo flowsheet [facility] [address] [place] [address] Rain Odonnell MD 01/26/2025 6:00 PM EDT Office Visit [facility] [address] [place] [address] Mckayla Blas NP Encounter for subsequent annual [...] type (HCC); Moderate persistent asthma without complication ([facility]); Insomnia; Non-seasonal allergic rhinitis, unspecified trigger; Type 2 diabetes mellitus with unspecified complications (HCC); Anxiety and depression ; Antibiotic-induced yeast infection; Chronic obstructive pulmonary disease, unspecified (HCC); Hyperlipidemia, unspecified ; Vaginal yeast infection; Morbid (severe) obesity due to excess calories ([facility]) 01/26/2025 Bamboo flowsheet [facility] [address] [place] [address] Mckayla Blas NP 01/19/2025 Travel 01/16/2025 Refill [facility] [address] [place] [address] Amber Pinzon LPN Vitamin D deficiency, unspecified 01/07/2025 Abstract [facility] [address] [place] [address] Mckayla Blas NP 01/07/2025 Abstract [facility] [address] [place] [address] Mckayla Blas NP 12/18/2024 Refill [facility] [address] [place] [address] Mckayla Blas NP Hyperlipidemia, unspecified ; Tobacco user; Encounter for smoking cessation counseling 12/17/2024 Telephone [facility] [address] [place] [address] Mckayla Blas NP Error (VOID this visit) 12/09/2024 10:00 AM EDT Office Visit [facility] [address] [place] [address] Mckayla Blas NP Cellulitis of left lower extremity (Primary Dx); COPD exacerbation (HCC); Primary hypertension ; Pulmonary hypertension (HCC); Morbid (severe) obesity due to excess calories ([facility]); Type 2 diabetes mellitus with complication, with long-term current use of insulin (HCC); Anxiety and depression ; Fever, unspecified fever cause 12/09/2024 Bamboo flowsheet [facility] [address] [place] [address] Mckayla Blas NP 12/08/2024 Travel 12/04/2024 Clinisync Result Encounter [facility] External Department Unsolicited Provider, Generic External Data from Last 3 Months Immunizations Immunization Administration Dates Next Due Influenza Whole 05/02/2013 Influenza, [id number] 04/16/2017,05/10/2016 Influenza, Unspecified 05/18/2023,04/16/2017,08/2015 Influenza, injectable, quadrivalent [...] How often do you attend chur or latter-day services? More than 4 times per year [...] Recorded Patient Health Questionnaire-2 Score 0 01/26/2025 [facility] - Occupational Stress Questionnaire Answer Date [...] any time in the past 12 [facility], were you homeless or living in [...] EDT Office Visit [facility] [address] [place] [address] Mckayla Blas, SILVANO [address] [place] [address] 05/28/2025 10:30 AM EST Office Visit [facility] [address] [place] [address] Rain Odonnell MD [address] [place] [address] 02/01/2026 6:00 PM EDT Office Visit [facility] [address] [place] [address] Mckayla Blas NP [address] [place] [address] Health Maintenance Due Date Last Done Comments [...] EDT Narrative 01/29/2025 6:40 [place] [address] Cardiology Report Signed Patient: MITZI MACIAS MR#: [id number] : 1970 Acct:[id number] Age/Sex: 54 / F ADM Date: 01/29/25 Loc: CARD Attending Dr: AMI ORO APRN Ordering Physician: AMI ORO APRN Date of Service: 01/29/25 Procedure(s): CA echo doppler complete Accession Number(s): [id number] cc: Mckayla Blas GLASS SMOOTHER; AMI ORO APRN Patient Name: MITZI MACIAS MR#: [id number] : 1970 Exam Date: 01/29/2025 Ordering Doctor: AMI ORO SIGNAL ENGINEER ECHOCARDIOGRAM REPORT PROCEDURE: CA ECHO DOPPLER COMPLETE [...] AGUILAR Signed By: 01/29/251839 DD/ 39 TD/TT: Data Center Technician: Procedure Note Radiology, Radiologist, - 01/29/2025 [facility] [place] [id number] Cardiology Report Signed Patient: MITZI MACIAS LMR#: [id number] : 1970Acct:[id number] Age/Sex: 54 / FADM Date: 01/29/25 Loc: CARD Attending Dr: AMI ORO APRN Ordering Physician: AMI ORO APRN Date of Service: 01/29/25 Procedure(s): CA echo doppler complete Accession Number(s): [id number] cc: Mckayla Blas GLASS SMOOTHER; AMI ORO APRN Patient Name: MITZI MACIAS MR#: [id number] : 1970 Exam Date: 01/29/2025 Ordering Doctor: [...] BHARAT AGUILAR Signed By:01/29/251839 DD/ 39 TD/TT: Data Center Technician: us Generic External Data Provider [facility] [...] PM EDT 12/04/2024 6:18 PM EDT Narrative [facility] - 12/10/2024 2:31 PM EDT LEFT AC Generic External Data Provider LAB BLOOD ORDERAB LES Final Result Performing Organization Address [facility]/ZIP Co de Phone Number [facility] * BLOOD CULTURE 1 (12/04/2024 4:44 PM EDT) BLOOD CULTURE 1 Blood Culture 1 NG5D NO GROWTH AT 5 DAYS.^NO GROWTH AT 5 DAYS. [facility] 12/04/2024 4:44 PM EDT 12/04/2024 5:17 PM EDT Narrative [facility] - 12/10/2024 2:32 PM EDT Generic External Data Provider LAB BLOOD ORDERAB LES Final Result Performing Organization Address City/[facility]/ZIP Co de Phone Number [facility] * Diabetic Retinopathy Screening - OU - Both Eyes (07/14/2024 3:09 PM EST) Anatomical Region Laterality Modality Head Other Mckayla Blas NP OPHTH PHOTOGRAPHY Final Result * MM TOMOSYNTHESIS SCREENING BI (12/14/2023 11:21 AM EDT) Anatomical Region Laterality Modality Other 12/14/2023 11:2 1 AM EDT Narrative 12/14/2023 11:22 [place] [address] Mammography Report Signed Patient: MITZI MACIAS MR#: [id number] : 1970 Acct:[id number] Age/Sex: 53 / F ADM Date: 12/13/23 Loc: MAMMO Attending Dr: Mckayla Blas NP Ordering Physician: Mckayla Blas NP Results: Date of Service: 12/13/23 Follow Up: Procedure(s): MM tomosynthesis screening BI Accession Number(s): [id number] cc: Mckayla Blas NP Patient Name: MITZI MACIAS MR#: [id number] : 1970 Exam Date: 12/13/2023 Ordering Doctor: [...] cancer at age 75. LOCATION: [facility] BREAST COMPOSITION: The breasts are [...] Signed By: 12/14/23 1122 DD/ 1121 TD/TT: Data Center Technician: Procedure Note Radiology, Radiologist, MD - 12/14/2023 [place] [address] Mammography Report Signed Patient: MITZI MACIAS LMR#: [id number] : 1970Acct:[id number] Age/Sex: 53 / FADM Date: 12/13/23 Loc: MAMMO Attending Dr: Mckayla Blas GLASS SMOOTHER Ordering Physician: Mckayla Blas NPResults: Date of Service: 12/13/23Follow Up: Procedure(s): MM tomosynthesis screening BI Accession Number(s): [id number] cc: Mckayla Blas NP Patient Name: MITZI MACIAS MR#: [id number] : 1970 Exam Date: 12/13/2023 Ordering Doctor: SAYDA Blas SIGNAL ENGINEER RADIOLOGY REPORT PROCEDURE: MM TOMOSYNTHESIS SCREENING BI [...] cancer at age 75. LOCATION: [facility] BREAST COMPOSITION: The breasts are [...] M.D. Signed By:12/14/23 1122 DD/ 1121 TD/TT: Data Center Technician: Mckayla Blas GLASS SMOOTHER [facility] Final Result from Last 3 Months or Most Recently Relevant to Health Maintenance Insurance [facility] Care Teams Wire Frame Lampshade Maker Relationship Specialty Start Date End Date Ty Amin MD [address] [place] [address] PCP - General Family Medicine 09/20/23 Mckayla Blas NP [address] [place] [address] Nurse Practitioner Family Medicine 09/20/23
--- OUTSIDE RECORDS SUMMARY | 2025-02-25 13:15 | XMS_ITS | Encounter Summary ---
Author Organization [facility] Address [address] [place] [address] Care Team Providers Care Environmental Engineer Name Role Phone Ty Amin MD Primary Care Provider [phone] Mckayla Blas NP Unavailable [phone] Encounter Details Date Type Department Care Team (Late st Contact Info) Description 02/18/2025 Abstract [facility] [address] [place] [address] Mckayla Blas, MEDICAL/SURGERY REGISTERED NURSE [address] [place] [address] Social History Tobacco Use Types Packs/Day Years [...] week 08/26/2024 How often do you attend [facility] or tenriism services? More than 4 times per year [...] Recorded Patient Health Questionnaire-2 Score 0 01/26/2025 [facility] [...] in a prison (including now)? No 07/10/2023 Housing Stability Vital [...] were you homeless or living in a prison (including now)? No 08/26/2024 Comments Unknown Sex [...] Office Visit [facility] [address] [place] [address] Mckayla Blas NP [address] [place] [address] 05/28/2025 10:30 AM EST Office Visit [facility] [address] [place] [address] Rain Souza MD [address] [place] [address] 02/01/2026 6:00 PM EDT Office Visit [facility] [address] [place] [address] Mckayla Blas NP [address] [place] [address] documented as of this encounter Visit Diagnoses Not on filedocumented in this encounter Additional Health Concerns Assessment Noted Time PHQ-9 Depression Total Score: 3 01/17/20 24 10:08 AM EDT documented as of this encounter Care Teams Environmental Engineer Relationship Specialty Start Date End Date Ty Amin MD [address] [place] [address] PCP - General Family Medicine 09/20/23 Mckayla Blas NP [address] [place] [address] Nurse Practitioner Family Medicine 09/20/23 documented as of this encounter
--- OUTSIDE RECORDS SUMMARY | 2025-02-25 13:15 | XMS_ITS | Encounter Summary ---
Author Organization [facility] Address [address] [place] [address] Care Team Providers Care Predictive Maintenance Specialist Name Role Phone Ty Amin MD Primary Care Provider [phone] Mckayla Blas NP Unavailable [phone] Mckayla Blas NP Unavailable [phone] Encounter Details Date Type Department Care [...] often do you attend chur ch or cheondoism services? 1 to 4 times per year [...] Recorded Patient Health Questionnaire-2 Score 1 01/17/2024 [facility] - Occupational [...] Office Visit [facility] [address] [place] [address] Mckayla Blas NP [address] [place] [address] 05/28/2025 10:30 AM EST Office Visit [facility] [address] [place] [address] Rain Souza MD [address] [place] [address] 02/01/2026 6:00 PM EDT Office Visit [facility] [address] [place] [address] Mckayla Blas, SILVANO [address] [place] [address] documented as of this encounter Procedures Procedure Name Priority Date/Time Associated Diagnosis Comments MR LUMBAR SPINE WO CON 05/12/2024 2:41 PM EST documented in this encounter Results * MR LUMBAR SPINE WO CON (05/12/2024 2:41 PM EST) Anatomical Region Laterality Modality Other 05/12/2024 2:41 PM EST Narrative 05/12/2024 2:43 [place] [address] Magnetic Resonance Report Signed Patient: MITZI MACIAS MR#: [id number] : 1970 Acct:[id number] Age/Sex: 53 / F ADM Date: 05/12/24 Loc: MRI Attending Dr: Celestina Chin NP Ordering Physician: Celestina Chin NP Date of Service: 05/12/24 Procedure(s): MR lumbar spine wo con Accession Number(s): [id number] cc: Mckayla Blas CREATIVE SERVICES DIRECTOR; Celestina Chin NP [place] [id number] Patient Name: MITZI MACIAS MRN: [facility]:[id number] date: 1970 Sex: F Assigned Patient Location: MRI Current Patient Location: CT Accession/Order Number: [id number] Exam Date: 05/12/2024 09:21 Report Date: 05/12/2024 [...] Signed By: 05/12/24 1443 DD/ 1441 TD/TT: Inside Horticultural Specialty Grower: Procedure Note Radiology, Radiologist, MD - 05/12/2024 [place] [address] Magnetic Resonance Report Signed Patient: MITZI MACIAS R#: [id number] : 1970Acct:[id number] Age/Sex: 53 / FADM Date: 05/12/24 Loc: MRI Attending Dr: Celestina Chin NP Ordering Physician: Celestina Chin NP Date of Service: 05/12/24 Procedure(s): MR lumbar spine wo con Accession Number(s): [id number] cc: Mckayla Blas NP; Celestina Chin NP The [address] [address] Patient Name: MITZI MACIAS MRN: [facility]:[id number] date: 1970 Sex: F Assigned Patient Location: MRI Current Patient Location: CT Accession/Order Number: [id number] Exam Date: 05/12/2024 09:21 Report Date: 05/12/2024 [...] M.D. Signed By:05/12/24 1443 DD/ 1441 TD/TT: Inside Horticultural Specialty Grower: us Generic External Data Provider [facility] Final Result documented in this encounter Visit Diagnoses Not on filedocumented in this encounter Additional Health Concerns Assessment Noted Time PHQ-9 Depression Total Score: 3 01/17/20 24 10:08 AM EDT documented as of this encounter Care Teams Predictive Maintenance Specialist Relationship Specialty Start Date End Date Ty Amin MD [address] [place] [address] PCP - General Family Medicine 09/20/23 Mckayla Blas NP [address] [place] [address] PCP - [facility] 09/07/23 01/11/25 Mckayla Blas NP [address] [place] [address] Nurse Practitioner Family Medicine 09/20/23 documented as of this encounter
--- OUTSIDE RECORDS SUMMARY | 2025-02-25 13:15 | XMS_ITS | Encounter Summary ---
Author Organization [facility] Address [address] [place] [address] Care Team Providers Care Cat Scanner Operator Name Role Phone Ty Amin MD Primary Care Provider [phone] Mckayla Blas NP Unavailable [phone] Mckayla Blas NP Unavailable [phone] Encounter Details Date Type Department Care [...] often do you attend chur ch or adventism services? 1 to 4 times per year [...] Office Visit [facility] [address] [place] [address] Mckayla Blas NP [address] [place] [address] 05/28/2025 10:30 AM EST Office Visit [facility] [address] [place] [address] aRin Souza MD [address] [place] [address] 02/01/2026 6:00 PM EDT Office Visit [facility] [address] [place] [address] Mckayla Blas, SILVANO [address] [place] [address] documented as of this encounter Procedures Procedure Name Priority Date/Time Associated Diagnosis Comments SEGMENTAL BLOOD PRESSURE 04/24/2024 11:20 AM EDT documented in this encounter Results * SEGMENTAL BLOOD PRESSURE (04/24/2024 11:20 AM EDT) Anatomical Region Laterality Modality Radiographic Kalani ging 04/24/2024 11:2 0 AM EDT Narrative 04/24/2024 11:23 [place] [address] Vein Report Signed Patient: SINA MACIAS MR#: [id number] : 1970 Acct:[id number] Age/Sex: 53 / F ADM Date: 04/24/24 Loc: VC Attending Dr: Rafael Gongora Ordering Physician: Rafael Gongora Date of Service: 04/24/24 Procedure(s): VC SEGMENTAL PRESSURES Accession Number(s): [id number] cc: Mckayla Blas AUTOMATION CONTROLS SPECIALIST; Rafael Gongora [place] [address] Patient Name: SINA MACIAS MRN: [id number] date: 1970 Sex: F Assigned Patient Location: Current Patient Location: Accession/Order Number: [id number] Exam Date: 04/24/2024 10:25 Report Date: 04/24/2024 11:20 At the request of: RAFAEL GONGORA Procedure: VC SEGMENTAL PRESSURES EXAM: VC SEGMENTAL PRESSURES HISTORY: R09.89 COMPARISON: None. FINDINGS: Segmental pressures presented as follows (right, left) in mmHg. Brachial: 169, 166 Upper thigh: Not obtained Lower thigh: 129, 119 Calf: 124, 106 DPA: 108, 105 INCIDENT RESPONSE ENGINEER: 100, 91 1st Toe: 124, 142 ISABELLE: [...] Signed By: 04/24/24 1123 DD/ 1120 TD/TT: Fitter Placer: Procedure Note Radiology, Radiologist, MD - 04/24/2024 [place] [address] Vein Report Signed Patient: SINA MACIAS LMR#: [id number] : 1970Acct:[id number] Age/Sex: 53 / FADM Date: 04/24/24 Loc: VC Attending Dr: Rafael Gongora Ordering Physician: Rafael Gongora Date of Service: 04/24/24 Procedure(s): VC SEGMENTAL PRESSURES Accession Number(s): [id number] cc: Mckayla Blas NP; Rafael Gongora [place] [address] Patient Name: SINA MACIAS MRN: [id number] date: 1970 Sex: F Assigned Patient Location: Current Patient Location: VC Accession/Order Number: [id number] Exam Date: 04/24/2024 10:25 Report Date: 04/24/2024 11:20 At the request of: RAFAEL GONGORA Procedure: VC SEGMENTAL PRESSURES EXAM: VC SEGMENTAL PRESSURES HISTORY: R09.89 COMPARISON: None. FINDINGS: Segmental pressures presented as follows (right, left) in mmHg. Brachial: 169, 166 Upper thigh: Not obtained Lower thigh: 129, 119 Calf: 124, 106 DPA: 108, 105 INCIDENT RESPONSE ENGINEER: 100, 91 1st Toe: 124, 142 ISABELLE: [...] M.D. Signed By:04/24/24 1123 DD/ 1120 TD/TT: Fitter Placer: us Generic External Data Provider IMG XR PROCEDURES Final Result documented in this encounter Visit Diagnoses Not on filedocumented in this encounter Additional Health Concerns Assessment Noted Time PHQ-9 Depression Total Score: 3 01/17/20 24 10:08 AM EDT documented as of this encounter Care Teams Cat Scanner Operator Relationship Specialty Start Date End Date Ty Amin MD [address] [place] [address] PCP - General Family Medicine 09/20/23 Mckayla Blas NP [address] [place] [address] PCP - [facility] 09/07/23 01/11/25 Mckayla Blas NP [address] [place] [address] Nurse Practitioner Family Medicine 09/20/23 documented as of this encounter
--- OUTSIDE RECORDS SUMMARY | 2025-02-25 13:15 | XMS_ITS | Encounter Summary ---
Author Organization [facility] Address [address] [place] [address] Care Team Providers Care Log Sorter Name Role Phone Ty Amin MD Primary Care Provider [phone] Mckayla Blas NP Unavailable [phone] Mckayla Blas NP Unavailable [phone] Encounter Details Date Type Department Care [...] Recorded Patient Health Questionnaire-2 Score 1 01/17/2024 [facility] - [...] Office Visit [facility] [address] [place] [address] Mckayla Blas NP [address] [place] [address] 05/28/2025 10:30 AM EST Office Visit [facility] [address] [place] [address] Rain Souza MD [address] [place] [address] 02/01/2026 6:00 PM EDT Office Visit [facility] [address] [place] [address] Mckayla Blas, SILVANO [address] [place] [address] documented as of this encounter Procedures Procedure Name Priority Date/Time Associated Diagnosis Comments CT ABDOMEN PELVIS W CON 05/12/2024 2:16 PM EST documented in this encounter Results * CT ABDOMEN PELVIS W CON (05/12/2024 2:16 PM EST) Anatomical Region Laterality Modality Other 05/12/2024 2:16 PM EST Narrative 05/12/2024 2:19 [place] [address] CT Scan Report Signed Patient: MITZI MACIAS MR#: [id number] : 1970 Acct:[id number] Age/Sex: 53 / F ADM Date: 05/12/24 Loc: CT Attending Dr: Gaviota MAYERS Ordering Physician: Gaviota Vega Date of Service: 05/12/24 Procedure(s): CT abdomen pelvis w con Accession Number(s): [id number] cc: Mckayla Blas NP [address] [address] Patient Name: MITZI MACIAS MRN: [id number] date: 1970 Sex: F Assigned Patient Location: CT Current Patient Location: Accession/Order Number: [id number] Exam Date: 05/12/2024 11:15 Report Date: 05/12/2024 [...] Signed By: 05/12/24 1419 DD/ 1416 TD/TT: Hydrator Operator: Procedure Note Radiology, Radiologist, MD - 05/12/2024 [place] [address] CT Scan Report Signed Patient: MITZI MACIAS LMR#: [id number] : 1970Acct:[id number] Age/Sex: 53 / FADM Date: 05/12/24 Loc: CT Attending Dr: Gaviota MAYERS Ordering Physician: Gaviota Vega Date of Service: 05/12/24 Procedure(s): CT abdomen pelvis w con Accession Number(s): [id number] cc: Mckayla Blas NP The [place] [id number] Patient Name: MITZI MACIAS MRN: [facility]:[id number] date: 1970 Sex: F Assigned Patient Location: CT Current Patient Location: Accession/Order Number: [id number] Exam Date: 05/12/2024 11:15 Report Date: 05/12/2024 [...] M.D. Signed By:05/12/24 1419 DD/ 1416 TD/TT: Hydrator Operator: us Generic External Data Provider [facility] Final Result documented in this encounter Visit Diagnoses Not on filedocumented in this encounter Additional Health Concerns Assessment Noted Time PHQ-9 Depression Total Score: 3 01/17/20 24 10:08 AM EDT documented as of this encounter Care Teams Log Sorter Relationship Specialty Start Date End Date Ty Amin MD [address] [place] [address] PCP - General Family Medicine 09/20/23 Mckayla Blas NP [address] [place] [address] PCP - [facility] 09/07/23 01/11/25 Mckayla Blas NP [address] [place] [address] Nurse Practitioner Family Medicine 09/20/23 documented as of this encounter
--- OUTSIDE RECORDS SUMMARY | 2025-02-25 13:15 | XMS_ITS | Encounter Summary ---
Author Organization [facility] Address [address] [place] [address] Care Team Providers Care Dog Bather Name Role Phone Ty Amin MD Primary Care Provider [phone] Mckayla Blas NP Unavailable [phone] Reason for Visit * Reason Comments Med Refill Encounter Details Date Type Department Care Team (Late st Contact Info) Description 02/14/2025 [facility]ill [facility] [address] [place] [address] Rain Souza MD [address] [place] [address] Type 2 diabetes mellitus with hyperglycemia, with [...] How often do you attend chur or anabaptist services? More than 4 times per year 08/26/2024 Do you belong to any clubs o r organizations such as presybeterian groups, unions, [employer] or athletic groups, or school groups? No [...] Recorded Patient Health Questionnaire-2 Score 0 01/26/2025 [facility] - [...] any time in the past 12 m [facility], were you homeless or [...] [facility] [address] [place] [address] Mckayla Blas NP [address] [place] [address] 05/28/2025 10:30 AM EST Office Visit [facility] [address] [place] [address] Rain Souza MD [address] [place] [address] 02/01/2026 6:00 PM EDT [facility] [address] [place] [address] Mckayla lBas NP [address] [place] [address] documented as of this encounter Visit Diagnoses Diagnosis Type 2 diabetes mellitus with hyperglycemia, with long-term current use of insulin (HCC) documented in this encounter Additional Health Concerns Assessment Noted Time PHQ-9 Depression Total Score: 3 01/17/20 10:08 AM EDT documented as of this encounter Care Teams Dog Bather Relationship Specialty Start Date End Date Ty Amin MD [address] [place] [address] PCP - General Family Medicine 09/20/23 Mckayla Blas NP [address] [place] [address] Nurse Practitioner Family Medicine 09/20/23 documented as of this encounter
--- OUTSIDE RECORDS SUMMARY | 2025-02-25 13:15 | XMS_ITS | Encounter Summary ---
Author Organization [facility] Address [address] [place] [address] Care Team Providers Care Real Estate Associate Attorney Name Role Phone Mckayla Blas MD Primary Care Provider [phone] Encounter Details Date Type Department Care Team (Late st Contact Info) Description 02/04/2025 Results Follow-Up Cardiology [address] [place] [address] Karma Chatterjee CNP [address] [facility] [place] [address] Complete Echo (TTE) w/wo Imaging [...] on filedocumented in this encounter Care Teams Real Estate Associate Attorney Relationship Specialty Start Date End Date Mckayla Blas MD [address] [place] [address] PCP - General Nurse Practitioner 11/13/23 documented as of this encounter
--- OUTSIDE RECORDS SUMMARY | 2025-02-25 13:15 | XMS_ITS | Encounter Summary ---
Author Organization [facility] Address [address] [place] [address] Care Team Providers Care Combine Inspector Name Role Phone Ty Amin MD Primary Care Provider [phone] Mckayla Blas VP DESIGN Unavailable [phone] Mckayla Blas VP DESIGN Unavailable [phone] Encounter Details Date Type Department Care Team (Late st Contact Info) Description 04/14/2024 Orders Only [facility] [address] [place] [address] Mckayla Blas VP DESIGN [address] [place] [address] Social History Tobacco Use Types Packs/Day Years [...] often do you attend chur ch or buddhist services? 1 to 4 times per year [...] Office Visit [facility] [address] [place] [address] Mckayla Blas, VP DESIGN [address] [place] [address] 05/28/2025 10:30 AM EST Office Visit [facility] [address] [place] [address] Rain Souza MD [address] [place] [address] 02/01/2026 6:00 PM EDT Office Visit [facility] [address] [place] [address] Mckayla Blas NP [address] [place] [address] documented as of this encounter Procedures Procedure [...] Ankle Right Radiogr aphic Imaging Mckayla Blas VP DESIGN IMG XR PROCEDURES Final Result documented in this encounter Visit Diagnoses Not on filedocumented in this encounter Additional Health Concerns Assessment Noted Time PHQ-9 Depression Total Score: 3 01/17/20 10:08 AM EDT documented as of this encounter Care Teams Combine Inspector Relationship Specialty Start Date End Date Ty Amin MD [address] [place] [address] PCP - General Family Medicine 09/20/23 Mckayla Blas NP [address] [place] [address] PCP - [facility] 09/07/23 01/11/25 Mckayla Blas NP [address] [place] [address] Nurse Practitioner Family Medicine 09/20/23 documented as of this encounter
--- OUTSIDE RECORDS SUMMARY | 2025-02-25 13:15 | XMS_ITS | Encounter Summary ---
Author Organization [id number] [address] [place] [address] Care Team Providers Care Chief Safety Officer Name Role Phone Mckayla Blas APRN-RIVET HOLE MACHINE OPERATOR Primary Care Provider Encounter Details Date Type Department Care Team (Late st Contact Info) Description 05/03/2020 [facility]phone [facility] [address] [place] [address] [address] Romero [address], [address] [id number] Social History Tobacco Use Types Packs/Day Years [...] on filedocumented in this encounter Care Teams Chief Safety Officer Relationship Specialty Start Date End Date Mckayla Blas [place] [address] PCP - General Nurse Practitioner 09/25/18 documented as of this encounter
--- OUTSIDE RECORDS SUMMARY | 2025-02-25 13:15 | XMS_ITS | Encounter Summary ---
Author Organization [facility] Address [address] [place] [address] Care Team Providers Care Supervising Film Or Videotape Editor Name Role Phone Ty Amin MD Primary Care Provider [phone] Ty Amin MD Primary Care Provider [phone] Mckayla Blas FILER AND SANDER Unavailable [phone] Mckayla Blas FILER AND SANDER Unavailable [phone] Encounter Details Date Type Department Care Team (Late st Contact Info) Description 08/31/2023 Clinisync Result Encounter [facility] External Department Unsolicited Andra Alcala PA [address] [place] [address] Dr [place], [place] [address] Social History Tobacco Use Types Packs/Day Years [...] often do you attend chur ch or adventist services? 1 to 4 times per year [...] 2 07/10/2023 [facility] [...] Office Visit [facility] [address] [place] [address] Mckayla Blas NP [address] [place] [place] [address] 05/28/2025 10:30 AM EST Office Visit [facility] [address] [place] [address] Rain Souza MD [address] [place] [address] 02/01/2026 6:00 PM EDT Office Visit [facility] [address] [place] [place] [address] Mckayla Blas NP [address] [place] [place] [address] documented as of this encounter Procedures Procedure [...] LAB BLOOD ORDERAB LES Final Result [facility] * BLOOD CULTURE 1 (09/10/2023 2:05 PM EST) BLOOD CULTURE 1 Blood Culture 1 NG5D NO GROWTH AT 5 DAYS.^NO GROWTH AT 5 DAYS. TB 09/10/2023 2:05 PM EST 09/10/2023 2:28 PM EST Narrative [facility] - 09/16/2023 1:07 PM EDT Generic External Data Provider LAB BLOOD ORDERAB LES Final Result [facility] * ECG 12-LEAD (08/31/2023 6:08 PM EST) Anatomical Region Laterality Modality Other 08/31/2023 6:08 PM EST Narrative 09/02/2023 7:32 AM EST [place] [id number] Electrocardiograph Report Signed Patient: MITZI MACIAS MR#: [id number] : 1970 Acct:[id number] Age/Sex: 53 / F ADM Date: 08/31/23 Loc: [place] 214-[address]: Jacqueline Becerra D.O. Ordering Physician: Andra Alcala Date of Service: 08/31/23 Procedure(s): ECG 12 lead Accession Number(s): [id number] cc: [facility] Test Date: 2023-08-31 Pat Name: MITZI MACIAS Department: Room: - Gender: Female Director Of Compliance: : 1970 Requested By: MCKAYLA BLAS Order Number: [id number] Reading MD: LAURI DIOR Measurements Intervals [place] Rate: 102 P: 67 MS: 144 QRS: 52 QRSD: 72 T: 49 QT: 326 QTc: 385 Interpretive Statements 1120 Sinus tachycardia 4068 Nonspecific Twave abnormality 8102 Low QRS voltage in chest leads 9140 abnormal rhythm ECG Compared to ECG 12/04/2022 21:27:48 Electronically Signed On 09-02-2023 7:31:43 EST by LAURI DIOR Dictated By: Lauri Dior D.O. Signed By: 09/02/23 0732 DD/ 1808 TD/TT: Retail Merchandising Specialist: Procedure Note Radiology, Radiologist, - 09/02/2023 The [place] [id number] Electrocardiograph Report Signed Patient: MITZI MACIAS R#: [id number] : 1970Acct:[id number] Age/Sex: 53 / FADM Date: 08/31/23 Loc: [place] 214-[address]: Jacqueline Becerra D.O. Ordering Physician: Andra Alcala Date of Service: 08/31/23 Procedure(s): ECG 12 lead Accession Number(s): [id number] cc: [facility] Test Date: 2023-08-31 Pat Name: MITZI MACIAS Department: Room: - Gender: Female Director Of Compliance: : 1970 Requested By: MCKAYLA BLAS Order Number: [id number] Reading MD: LAURI DIOR Measurements Intervals [place] Rate: 102 P: 67 MS: 144 QRS: 52 QRSD: 72 T: 49 QT: 326 QTc: 385 Interpretive Statements 1120 Sinus tachycardia 4068 Nonspecific Twave abnormality 8102 Low QRS voltage in chest leads 9140 abnormal rhythm ECG Compared to ECG 12/04/2022 21:27:48 Electronically Signed On 09-02-2023 7:31:43 EST by LAURI DIOR Dictated By: Lauri Dior D.O. Signed By:09/02/23 0732 DD/ 1808 TD/TT: Retail Merchandising Specialist: Andra MAYERS [facility] Final Result documented in this encounter Visit Diagnoses Not on filedocumented in this encounter Care Teams Supervising Film Or Videotape Editor Relationship Specialty Start Date End Date Ty mAin MD PCP - General Family Medicine 01/05/23 09/19/23 Ty Amin MD [address] [place] [address] PCP - General Family Medicine 09/20/23 Mckayla Blas NP [address] [place] [address] PCP - [facility] 09/07/23 01/11/25 Mckayla Blas NP [address] [place] [address] Nurse Practitioner Family Medicine 09/20/23 documented as of this encounter
--- OUTSIDE RECORDS SUMMARY | 2025-02-25 13:15 | XMS_ITS | Encounter Summary ---
Author Organization [facility] Address [address] [place] [address] Care Team Providers Care Manager Enrollment Name Role Phone Ty Amin MD Primary Care Provider [phone] Mckayla Blas APPRENTICE EMBALMER Unavailable [phone] Mckayla Blas APPRENTICE EMBALMER Unavailable [phone] Encounter Details Date Type Department Care Team (Late st Contact Info) Description 07/14/2024 Orders Only [facility] [address] [place] [address] Mckayla Blas APPRENTICE EMBALMER [address] [place] [address] Social History Tobacco Use Types Packs/Day Years [...] often do you attend chur ch or amish services? 1 to 4 times per year [...] Recorded Patient Health Questionnaire-2 Score 1 01/17/2024 [facility] - [...] Visit [facility] [address] [place] [address] Mckayla Blas, APPRENTICE EMBALMER [address] [place] [address] 05/28/2025 10:30 AM EST Office Visit [facility] [address] [place] [address] Rain Souza MD [address] [place] [address] 02/01/2026 6:00 PM EDT Office Visit [facility] [address] [place] [address] Mckayla Blas NP [address] [place] [address] documented as of this encounter Procedures Procedure [...] documented as of this encounter Care Teams Manager Enrollment Relationship Specialty Start Date End Date Ty Amin MD [address] [place] [address] PCP - General Family Medicine 09/20/23 Mckayla Blas NP [address] [place] [address] PCP - [facility] 09/07/23 01/11/25 Mckayla Blas NP [address] [place] [address] Nurse Practitioner Family Medicine 09/20/23 documented as of this encounter
--- OUTSIDE RECORDS SUMMARY | 2025-02-25 13:15 | XMS_ITS | Clinical Summary ---
Author Organization [facility] tem Address [id number] [address] [place] [address] Care Team Providers Care Certified Maintenance Welder Name Role Phone Wan Mckayla Krystal PEREZN-EMERGENCY DEPARTMENT COORDINATOR Primary Care Provider Allergies No known active allergies Medications vit 10-iron fum-folic 65-1 mg tabletIndicatio ns:Morbid obesity (CMS-HCC),Healt hcare maintenance Take 1 tablet by mouth daily. 90 tablet 3 0 Active albuterol (PROVENTIL,VENT JNO) 2.5 mg /3 mL (0.083 %) nebulizer [...] Medical Devices Not on file Insurance [place]ICAID [place] [employer] MEDICARE Care Teams Certified Maintenance Welder Relationship Specialty Start Date End Date Mckayla Blas APRN-EMERGENCY DEPARTMENT COORDINATOR [address] [place] [address] PCP - General Nurse Practitioner 09/25/18
--- OUTSIDE RECORDS SUMMARY | 2025-02-25 13:15 | XMS_ITS | Encounter Summary ---
Author Organization [employer] tem Address [id number] [address] [place] [address] Care Team Providers Care Architectural Associate Name Role Phone JuanjoseMckayla carcamo Krystal MARKETING DESIGNER-WAREHOUSER Primary Care Provider Encounter Details Date Type Department Care Team (Late st Contact Info) Description 05/31/2020 Orders Only [facility] [address] [place] [address] External, Scanning Provider Social History Tobacco Use [...] ECG ORDERABLES Final Result Performing Organization Address [facility] Co de Phone Number MANUALLY TRANSCRIBED RESULTS [...] ECG ORDERABLES Final Result Performing Organization Address [facility] Co de Phone Number MANUALLY TRANSCRIBED RESULTS * Pulmonary function test (10/24/2018) us Scanning Provider External PFT ORDERABLES Final Result Performing Organization Address [facility] Co de Phone Number MANUALLY TRANSCRIBED RESULTS * Nuc stress Lexiscan/Exercise (12/12/2016) Anatomical Region Laterality Modality Chest N/A Nuclear Medicine us Scanning Provider External CV STRESS ORDERABLES Final Result documented in this encounter Visit Diagnoses Not on filedocumented in this encounter Care Teams Architectural Associate Relationship Specialty Start Date End Date Mckayla Blas, MARKETING DESIGNER-WAREHOUSER [address] [place] [address] PCP - General Nurse Practitioner 09/25/18 documented as of this encounter
--- OUTSIDE RECORDS SUMMARY | 2025-02-25 13:15 | XMS_ITS | Encounter Summary ---
Author Organization [facility] Address [address] [place] [address] Care Team Providers Care Office Machine Punch Operator Name Role Phone Ty Amin MD Primary Care Provider [phone] Ty Amin MD Primary Care Provider [phone] Mckayla Blas AUTOMOTIVE CONSULTANT Unavailable [phone] Mckayla Blas AUTOMOTIVE CONSULTANT Unavailable [phone] Encounter Details Date Type Department Care Team (Late st Contact Info) Description 09/12/2023 Orders Only [facility] [address] [place] [address] Social History Tobacco Use Types Packs/Day Years [...] How often do you attend chur or mormon services? 1 to 4 times per year [...] Recorded Patient Health Questionnaire-2 Score 2 07/10/2023 [facility] [...] Visit [facility] [address] [place] [address] Mckayla Blas, SILVANO [address] [place] [address] 05/28/2025 10:30 AM EST Office Visit [facility] [address] [place] [address] Rain Souza MD [address] [place] [address] 02/01/2026 6:00 PM EDT Office Visit [facility] [address] [place] [address] Mckayla Blas NP [address] [place] [address] documented as of this encounter Procedures Procedure Name Priority Date/Time Associated Diagnosis Comments XR CHEST 1 VIEW Routine 09/11/2023 4:52 PM EST documented in this encounter Results * XR chest 1 view (09/11/2023 4:52 PM EST) Anatomical Region Laterality Modality Chest Radiographic Kalani ging [facility] IMG XR PROCEDURES Final Result documented in this encounter Visit Diagnoses Not on filedocumented in this encounter Care Teams Office Machine Punch Operator Relationship Specialty Start Date End Date Ty Amin MD PCP - General Family Medicine 01/05/23 09/19/23 Ty Amin MD [address] [place] [address] PCP - General Family Medicine 09/20/23 Mckayla Blas NP [address] [place] [address] PCP - [facility] 09/07/23 01/11/25 Mckayla Blas NP [address] [place] [address] Nurse Practitioner Family Medicine 09/20/23 documented as of this encounter
--- OUTSIDE RECORDS SUMMARY | 2025-02-25 13:15 | XMS_ITS | Encounter Summary ---
Author Organization [facility] tem Address [id number] [address] [place] [address] Care Team Providers Care Yarding Engineer Name Role Phone JuanjoseMckayla carcamo Krystal JIGGER OPERATOR-RESEARCH NEUROPSYCHOLOGIST Primary Care Provider Encounter Details Date Type Department Care Team (Late st Contact Info) Description 05/31/2020 Orders Only [facility] [address] [place] [address] External, Scanning Provider Social History Tobacco Use [...] on filedocumented in this encounter Care Teams Yarding Engineer Relationship Specialty Start Date End Date Mckayla Blas, JIGGER OPERATOR-RESEARCH NEUROPSYCHOLOGIST [address] [place] [address] PCP - General Nurse Practitioner 09/25/18 documented as of this encounter
--- OUTSIDE RECORDS SUMMARY | 2025-02-25 13:15 | XMS_ITS | Encounter Summary ---
Author Organization [facility] Address [address] [place] [address] Care Team Providers Care Supervising Film Or Videotape Editor Name Role Phone Ty Amin MD Primary Care Provider [phone] Mckayla Blas FOXER Unavailable [phone] Mckayla Blas FOXER Unavailable [phone] Encounter Details Date Type Department Care Team (Late st Contact Info) Description 01/07/2025 Abstract [facility] [address] [place] [address] Mckayla Blas NP [address] [place] [address] Social History Tobacco Use Types [...] often do you attend chur ch or evangelical services? More than 4 times [...] any time in the past 12 m [facility], were you homeless or living in a [...] Visit [facility] [address] [place] [address] Mckayla Blas NP [address] [place] [address] 05/28/2025 10:30 AM EST Office Visit [facility] [address] [place] [address] Rain Souza MD [address] [place] [address] 02/01/2026 6:00 PM EDT Office Visit [facility] [address] [place] [address] Mckayla Blas, SILVANO [address] [place] [address] documented as of this encounter Visit Diagnoses Not on filedocumented in this encounter Additional Health Concerns Assessment Noted Time PHQ-9 Depression Total Score: 3 01/17/20 10:08 AM EDT documented as of this encounter Care Teams Supervising Film Or Videotape Editor Relationship Specialty Start Date End Date Ty Amin MD [address] [place] [address] PCP - General Family Medicine 09/20/23 Mckayla Blas NP [address] [place] [address] PCP - [facility] 09/07/23 01/11/25 Mckayla Blas NP [address] [place] [address] Nurse Practitioner Family Medicine 09/20/23 documented as of this encounter
--- OUTSIDE RECORDS SUMMARY | 2025-02-25 13:15 | XMS_ITS | Encounter Summary ---
Author Organization [facility] Address [id number] [address] [place] [address] Care Team Providers Care Compensation Associate Name Role Phone JuanjoseMckayla carcamo Krystal SCHOOL SUPERVISOR-PODIATRIC ASSISTANT Primary Care Provider Encounter Details Date Type Department Care Team (Late st Contact Info) Description 06/11/2020 Orders Only [facility] [address] [place] [address] External, Scanning Provider Social History Tobacco Use [...] filedocumented in this encounter Care Teams Compensation Associate Relationship Specialty Start Date End Date Mckayla Blas, SCHOOL SUPERVISOR-PODIATRIC ASSISTANT [address] [place] [address] PCP - General Nurse Practitioner 09/25/18 documented as of this encounter
--- OUTSIDE RECORDS SUMMARY | 2025-02-25 13:15 | XMS_ITS | Encounter Summary ---
Author Organization [facility] Address [address] [place] [address] Care Team Providers Care Wharf Tender Head Name Role Phone Ty Amin MD Primary Care Provider [phone] Mckayla Blas NP Unavailable [phone] Mckayla Blas NP Unavailable [phone] Encounter Details Date Type Department Care Team (Late st Contact Info) Description 05/12/2024 Orders Only [facility] [address] [place] [address] Angela Cochran NP [address] [place] [address] Social History Tobacco Use Types [...] Recorded Patient Health Questionnaire-2 Score 1 01/17/2024 [facility] - Occupational Stress Questionnaire Answer [...] Visit [facility] [address] [place] [address] Mckayla Blas NP [address] [place] [address] 05/28/2025 10:30 AM EST Office Visit [facility] [address] [place] [address] Rain Souza MD [address] [place] [address] 02/01/2026 6:00 PM EDT Office Visit [facility] [address] [place] [address] Mckayla Blas NP [address] [place] [address] documented as of this encounter Procedures Procedure [...] documented as of this encounter Care Teams Wharf Tender Head Relationship Specialty Start Date End Date Ty Amin MD [address] [place] [address] PCP - General Family Medicine 09/20/23 Mckayla Blas NP [address] [place] [address] PCP - [facility] 09/07/23 01/11/25 Mckayla Blas NP [address] [place] [address] Nurse Practitioner Family Medicine 09/20/23 documented as of this encounter
--- OUTSIDE RECORDS SUMMARY | 2025-02-25 13:15 | XMS_ITS | Encounter Summary ---
Author Organization [facility] Address [address] [place] [address] Care Team Providers Care Silk Weaver Name Role Phone Ty Amin MD Primary Care Provider [phone] Mckayla Blas JIG AND FIXTURE REPAIRER Unavailable [phone] Mckayla Blas JIG AND FIXTURE REPAIRER Unavailable [phone] Encounter Details Date Type Department Care Team (Late st Contact Info) Description 01/07/2025 Abstract [facility] [address] [place] [address] Mckayla Blas NP [address] [place] [address] Social History Tobacco Use Types [...] you attend chur ch or buddhism services? More than 4 times per year [...] Patient Health Questionnaire-2 Score 1 01/17/2024 [facility]at ional [facility] - [...] time in the past 12 m [facility], were you homeless or living in a [...] Visit [facility] [address] [place] [address] Mckayla Blas NP [address] [place] [address] 05/28/2025 10:30 AM EST Office Visit [facility] [address] [place] [address] Rain Souza MD [address] [place] [address] 02/01/2026 6:00 PM EDT Office Visit [facility] [address] [place] [address] Mckayla Blas, SILVANO [address] [place] [address] documented as of this encounter Visit Diagnoses Not on filedocumented in this encounter Additional Health Concerns Assessment Noted Time PHQ-9 Depression Total Score: 3 01/17/20 10:08 AM EDT documented as of this encounter Care Teams Silk Weaver Relationship Specialty Start Date End Date Ty Amin MD [address] [place] [address] PCP - General Family Medicine 09/20/23 Mckayla Blas NP [address] [place] [address] PCP - [facility] 09/07/23 01/11/25 Mckayla Blas NP [address] [place] [address] Nurse Practitioner Family Medicine 09/20/23 documented as of this encounter
--- OUTSIDE RECORDS SUMMARY | 2025-02-25 13:16 | XMS_ITS | Encounter Summary ---
Author Organization [facility] Address [address] [place] [address] Care Team Providers Care Geometry Professor Name Role Phone Ty Amin MD Primary Care Provider [phone] Mckayla Blas PHOTOGRAPHIC COLORIST Unavailable [phone] Mckayla Blas PHOTOGRAPHIC COLORIST Unavailable [phone] Reason for Visit * Reason Comments Med Refill Encounter Details Date Type Department Care Team (Late st Contact Info) Description 11/27/2023 Refill [facility] [address] [place] [address] Mckayla Blas NP [address] [place] [address] Chronic obstructive pulmonary disease, unspecified (HCC) Social [...] How often do you attend chur or hoahaoism services? 1 to 4 times per year 07/10/2023 Do you belong to any clubs o r organizations such as episcopalian groups, unions, fraternal or athletic groups, or [...] Recorded Patient Health Questionnaire-2 Score 0 11/01/2023 [facility] of Occupat ional [...] Office Visit [facility] [address] [place] [address] Mckayla Blas NP [address] [place] [address] 05/28/2025 10:30 AM EST Office Visit [facility] [address] [place] [address] Rain Souza MD [address] [place] [address] 02/01/2026 6:00 PM EDT Office Visit [facility] [address] [place] [address] Mckayla Blas NP [address] [place] [address] documented as of this encounter Visit Diagnoses Diagnosis Chronic obstructive pulmonary disease, unspecified (HCC) documented in this encounter Care Teams Geometry Professor Relationship Specialty Start Date End Date Ty Amin MD [address] [place] [address] PCP - General Family Medicine 09/20/23 Mckayla Blas NP [address] [place] [address] PCP - [facility] 09/07/23 01/11/25 Mckayla Blas NP [address] [place] [address] Nurse Practitioner Family Medicine 09/20/23 documented as of this encounter
--- OUTSIDE RECORDS SUMMARY | 2025-02-25 13:16 | XMS_ITS | Clinical Summary ---
Author Organization [facility] Address [address] [place] [address] Care Team Providers Care Health Policy Nurse Name Role Phone Mckayla Blas MD Primary Care Provider [phone] Allergies No known active allergies Medications amitriptyline [...] SUBCUTANEOUSLY TWICE DAILY 2 Active HYDROcodone-ac etaminophen (Derry) 5-325 mg tablet TAKE 1 TABLET BY MOUTH THREE TIMES A DAY NEEDED FOR PAIN MUST LAST 30 DAYS 4 Active DULoxetine (Cymbalta) [address] capsule Take 1 tablet by mouth in the morning. Active ergocalciferol (Vitamin D-2) 1.25 MG (56252 Units) capsule Take 1.25 mg by mouth. [...] by mouth two times daily. 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 08/27/2024 [facility] current use of inhaled steroid 025 Vitamin [...] Assessment & Plan: Open wounds refer to [facility] Vaginal yeast infection 08/17/2023 11/14/19 Anxiety and depression 07/10/2023 Bilateral lower extremity edema 07/10/2023 11/14/2023 Overview (11/14/2023): Last Assessment & Plan: Continue w pamela, discussed skin care regimines as well Diabetic neuropathy 07/10/2023 11/14/2023 Hypertension 07/10/2023 11/14/2023 Overview (11/14/2023): Last Assessment & Plan: No changes today in meds Obstructive sleep apnea 07/10/2023 11/14/19 Overview (11/14/2023): Last Assessment & Plan: DME [...] Team Description 02/04/2025 Results Follow-Up Cardiology [address] [place] [address] Karma Chatterjee CNP Complete Echo (TTE) w/wo Imaging Agent, Strain, 3D, Bubble Study 01/30/2025 Orders Only [facility] [address] [place] [address] Provider, MD Dale 01/06/2025 11:20 AM EDT Office Visit [facility] [address] [place] [facility] [address] Karma Chatterjee CNP Chronic diastolic heart failure [...] drink = 0.6 oz pur e alcohol) [place] Safety & Environment Answer Date Rec orded [...] Months Insurance [employer] MEDICARE Care Teams Health Policy Nurse Relationship Specialty Start Date End Date Mckayla Blas MD [address] [place] [address] PCP - General Nurse Practitioner 11/13/23
--- OUTSIDE RECORDS SUMMARY | 2025-02-25 13:16 | XMS_ITS | Encounter Summary ---
Author Organization [facility] Address [address] [place] [address] Care Team Providers Care Councillor Aboriginal Land Council Name Role Phone Ty Amin MD Primary Care Provider [phone] Mckayla Blas TEMPERING OVEN OPERATOR Unavailable [phone] Mckayla Blas NP Unavailable [phone] Encounter Details Date Type Department Care Team (Late st Contact Info) Description 12/14/2023 Clinisync Result Encounter [facility] External Department Unsolicited Mckayla Blas NP [address] [place] [address] Social History Tobacco Use Types Packs/Day Years [...] How often do you attend chur or restoration services? 1 to 4 times per year 07/10/2023 Do you belong to any clubs o r organizations such as congregation groups, unions, fraternal or athletic groups, or [...] Recorded Patient Health Questionnaire-2 Score 0 11/01/2023 [facility] of Occupat ional [facility] - Occupational Stress Questionnaire Answer Date [...] Visit [facility] [address] [place] [address] Mckayla Blas, SILVANO [address] [place] [address] 05/28/2025 10:30 AM EST Office Visit [facility] [address] [place] [address] Rain Souza MD [address] [place] [address] 02/01/2026 6:00 PM EDT Office Visit [facility] [address] [place] [address] Mckayla Blas NP [address] [place] [address] documented as of this encounter Procedures Procedure Name Priority Date/Time Associated Diagnosis Comments MM TOMOSYNTHESIS SCREENING BI 12/14/2023 11:21 AM EDT documented in this encounter Results * MM TOMOSYNTHESIS SCREENING BI (12/14/2023 11:21 AM EDT) Anatomical Region Laterality Modality Other 12/14/2023 11:2 1 AM EDT Narrative 12/14/2023 11:22 [place] [address] Mammography Report Signed Patient: SINA MACIAS MR#: [id number] : 1970 Acct:[id number] Age/Sex: 53 / F ADM Date: 12/13/23 Loc: MAMMO Attending Dr: Mckayla Blas NP Ordering Physician: Mckayla Blas NP Results: Date of Service: 12/13/23 Follow Up: Procedure(s): MM tomosynthesis screening BI Accession Number(s): [id number] cc: Mckayla Blas NP Patient Name: SINA MACIAS MR#: [id number] : 1970 Exam Date: 12/13/2023 Ordering Doctor: [...] unknown cancer at age 75. LOCATION: [facility] BREAST COMPOSITION: The breasts are almost [...] Signed By: 12/14/23 1122 DD/ 1121 TD/TT: Kitchen And Bath Designer: Procedure Note Radiology, Radiologist, MD - 12/14/2023 [place] [address] Mammography Report Signed Patient: SINA MACIAS LMR#: [id number] : 1970Acct:[id number] Age/Sex: 53 / FADM Date: 12/13/23 Loc: MAMMO Attending Dr: Mckayla Blas NP Ordering Physician: Mckayla Blas NPResults: Date of Service: 12/13/23Follow Up: Procedure(s): MM tomosynthesis screening BI Accession Number(s): [id number] cc: Mckayla Blas NP Patient Name: SINA MACIAS MR#: [id number] : 1970 Exam Date: 12/13/2023 Ordering Doctor: SAYDA Blas COTTON PICKER OPERATOR RADIOLOGY REPORT PROCEDURE: MM TOMOSYNTHESIS SCREENING [...] unknown cancer at age 75. LOCATION: [facility] BREAST COMPOSITION: The breasts are almost [...] M.D. Signed By:12/14/23 1122 DD/ 1121 TD/TT: Kitchen And Bath Designer: us Mckayla Blas NP [facility] Final Result documented in this encounter Visit Diagnoses Not on filedocumented in this encounter Care Teams Councillor Aboriginal Land Council Relationship Specialty Start Date End Date Ty Amin MD [address] [place] [address] PCP - General Family Medicine 09/20/23 Mckayla Blas NP [address] [place] [address] PCP - [facility] 09/07/23 01/11/25 Mckayla Blas NP [address] [place] [address] Nurse Practitioner Family Medicine 09/20/23 documented as of this encounter
--- OUTSIDE RECORDS SUMMARY | 2025-02-25 13:16 | XMS_ITS | Encounter Summary ---
Author Organization [facility] Address [address] [place] [address] Care Team Providers Care Sales Advisor Name Role Phone Ty Amin MD Primary Care Provider [phone] Mckayla Blas CHAIR FINISHER Unavailable [phone] Mckayla Blas NP Unavailable [phone] Encounter Details Date Type Department Care Team (Late st Contact Info) Description 12/17/2023 Orders Only [facility] [address] [place] [address] Mckayla Blas NP [address] [place] [address] Social History Tobacco Use Types Packs/Day Years [...] place to sleep or slept in a halfway (including now)? No 07/10/2023 Comments Unknown Sex [...] Office Visit [facility] [address] [place] [address] Mckayla Blas NP [address] [place] [address] 05/28/2025 10:30 AM EST Office Visit [facility] [address] [place] [address] Rain Souza MD [address] [place] [address] 02/01/2026 6:00 PM EDT Office Visit [facility] [address] [place] [address] Mckayla Blas NP [address] [place] [address] documented as of this encounter Procedures Procedure [...] filedocumented in this encounter Care Teams Sales Advisor Relationship Specialty Start Date End Date Ty Amin MD [address] [place] [address] PCP - General Family Medicine 09/20/23 Mckayla Blas NP [address] [place] [address] PCP - [facility] 09/07/23 01/11/25 Mckayla Blas NP [address] [place] [address] Nurse Practitioner Family Medicine 09/20/23 documented as of this encounter
--- OUTSIDE RECORDS SUMMARY | 2025-02-25 13:16 | XMS_ITS | Encounter Summary ---
Author Organization [facility] Address [address] [place] [address] Care Team Providers Care Cardroom Worker Name Role Phone Ty Amin MD Primary Care Provider [phone] Ty Amin MD Primary Care Provider [phone] Mckayla Blas MILITARY SOURCE OPERATIONS SPECIALIST Unavailable [phone] Mckayla Blas MILITARY SOURCE OPERATIONS SPECIALIST Unavailable [phone] Encounter Details Date Type Department Care Team (Late st Contact Info) Description 07/08/2023 [facility] [address] [place] [address] Mckayla Blas NP [address] [place] [address] Social History Tobacco Use Types Packs/Day Years [...] often do you attend chur ch or latter-day services? 1 to 4 times per year [...] Patient Health Questionnaire-2 Score 2 07/10/2023 [facility] of Occupat ional Health [...] Visit [facility] [address] [place] [address] Mckayla Blas, SILVANO [address] [place] [address] 05/28/2025 10:30 AM EST Office Visit [facility] [address] [place] [address] Rain Souza MD [address] [place] [address] 02/01/2026 6:00 PM EDT Office Visit [facility] [address] [place] [address] Mckayla Blas NP [address] [place] [address] documented as of this encounter Visit Diagnoses Not on filedocumented in this encounter Care Teams Cardroom Worker Relationship Specialty Start Date End Date Ty Amin MD PCP - General Family Medicine 01/05/23 09/19/23 Ty Amin MD [address] [place] [address] PCP - General Family Medicine 09/20/23 Mckayla Blas NP [address] [place] [address] PCP - [facility] 09/07/23 01/11/25 Mckayla Blas NP [address] [place] [address] Nurse Practitioner Family Medicine 09/20/23 documented as of this encounter
--- OUTSIDE RECORDS SUMMARY | 2025-02-25 13:16 | XMS_ITS | Patient Health Record ---
Author Organization [facility] in [place] Address [address] [place] [address] Care Team Providers Care Inside Sales Professional Name Role Phone Mckayla Blas CNP Primary Care Provider Unavail able Armando Yañez Unavailable [phone] Allergies No Known Allergies Results Component Value Reference Range Notes VC SEGMENTAL PRESSURES (Not yet reviewed by provider) Interpretation: Performing Lab: Notes/Report: Source Facility: [place] [address] Vein Report Signed Patient: MITZI MACIAS MR#: [id number] : 1970 Acct:[id number] Age/Sex: 53 / F ADM Date: 04/24/24 Loc: [facility] Attending Dr: Rafael Gongora Ordering Physician: Rafael Gongora Date of Service: 04/24/24 Procedure(s): VC SEGMENTAL PRESSURES Accession Number(s): [id number] cc: Mckayla Blas GEOTECHNICAL INTERN; Rafael Gongora [place] [address] Patient Name: IMTZI MACIAS MRN: [facility]:[id number] date: 1970 Sex: F Assigned Patient Location: VC Current Patient Location: VC Accession/Order Number: [id number] Exam Date: 04/24/2024 10:25 Report Date: 04/24/2024 11:20 At the request of: RAFAEL GONGORA Procedure: VC SEGMENTAL PRESSURES EXAM: VC SEGMENTAL PRESSURES HISTORY: R09. COMPARISON: None. FINDINGS: Segmental pressures presented as follows (right, left) in mmHg. Brachial: 169, 166 Upper thigh: Not obtained Lower thigh: 129, 119 Calf: 124, 106 DPA: 108, 105 EQUITY ANALYST: 100, 91 1st Toe: 124, 142 [...] Signed By: 04/24/24 112 DD/ 112 TD/TT: Photostat Operator: [place] [address] Vein Report Signed Patient: BARBY MACIAS MR#: [id number] : 1970 Acct:[id number] Age/Sex: 53 / F ADM Date: 04/24/24 Loc: VC Attending Dr: Nanci Gongora Ordering Physician: Rafael Gongora Date of Service: 04/24/24 Procedure(s): VC SEGMENTAL PRESSURES Accession Number(s): [id number] cc: Mckayla Blas GEOTECHNICAL INTERN ; Rafael Gongora [place] [id number] Patient Name: MITZI MACIAS MRN: [id number] date: 1970 Sex: F Assigned Patient Location: VC Current Patient Location: VC Accession/Order Numb er: [id number] Exam Date: 10:25 Report Date: 04/24/2024 11:20 At the request of: RAFAEL GONGORA Procedure: VC SEGMEN KARY PRESSURES EXAM: VC SEGMENTAL PRESSURES HISTORY: R09.89 COMPARISON: None. FINDINGS: Segmental pressures presented as follows (right, left) in mmHg. Brachial: 169, 166 Upper thigh: Not obtained Lower thigh: 129, 119 Calf: 124, 106 DPA: 108, 105 EQUITY ANALYST: 100, 91 1st Toe: 124, 142 [...] M.D. Signed By: 04/24/243 DD/ 19 TD/TT: Photostat Operator: PROF OLIVIER 8 ([facility] ) (Not yet reviewed by provider) Interpretation: Performing Lab: Notes/Report: [facility] , Sodium 142 136-145 mmol/L Potassium [...] Performing Lab: see note ML - [facility] LB CBC AUTO DIFF (Not yet revie wed by provider) Interpretation: Performing Lab: Notes/Report: [facility] , White Blood Count 12.8 4.0-11.0 [...] Performing Lab: see note ML - [facility] LB Reason For Referral No Information [...] Days Active Vitamin D (Ergocalciferol) 1.25 MG (29164 UT) Oral for 90 Days Activ e Breztri Aerosphere 160-9-4.8 MCG/ACT Inhalation for 30 Days Active Simvastatin 10 MG Oral for 90 Days Active Roflumilast 250 MCG Oral for 28 Days Active Immunizations Vaccine Route Administration Date Status Comme nts Flu, Fluzone (16652) 6-35mo, multi-dose vial (2467-7606) Unknown 05/18/2023 Administered Pneumococcal (Pneumovax 23) Unknown [...] ulcer due to type 2 diabetes mellitus (8253542290844) Type 2 diabetes mellitus with foot ulcer (E11.621) Active confirmed Problem 836692031 Morbid (severe) obesity due to excess calories (E66.01) Active confirmed Problem Venous ulcer of lower extremity due to chronic peripheral venous hypertension (190082225391332) Chronic venous hypertension (idiopathic) with ulcer of left lower extremity (I87.312) Active confirmed Problem Chronic non-pressure ulcer of calf extending to fat level (6609092259827751 1) Non-pressure chronic ulcer of other part of right lower leg with fat layer exposed (L97.812) Active confirmed Problem Chronic ulcer of skin of lower leg (disorder) (4529968678980439 4) Non-pressure chronic ulcer of other part of left lower leg limited to breakdown of skin (L97.821) Active confirmed Problem 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 exposed (L97.822) Active confirmed Problem Long-term current use of inhaled steroid (309557667) MCC (current) use of inhaled steroids (Z79.51) Active confirmed Problem COPD - Chronic obstructive pulmonary disease (90015030) COPD (chronic obstructive pulmonary disease) (J44.9) Active confirmed Problem Hypertension (21861979) HTN (hypertension) (I10) Active confirmed Problem Obstructive sleep apnea syndrome (51845495) DANIEL (obstructive sleep apnea) (G47.33) Active confirmed Problem Lumbar radiculopathy (816594238) Lumbar radiculopathy (M54.16) Active confirmed Problem Diabetes mellitus type 2 (disorder) (51490599) DM2 (diabetes mellitus, type 2) (E11.9) Active confirmed Problem Mental disorder caused by drug (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) Cigarette nicotine dependence with nicotine-induced disorder (F17.219) Active confirmed Problem Leukocytosis (745991339) Leukocytosis (D72.829) Active confirmed Problem Acute exacerbation of chronic obstructive airways disease (830704376) COPD with exacerbation (J44.1) Active confirmed Problem 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 (I87.313) Active confirmed Problem Non-prs chr ulce r oth prt l low leg limited to brkdwn skin (L97.821) Active confirmed Problem Stasis dermatitis co-occurrent with venous ulcer of right lower extremity due to chronic peripheral venous hypertension (730222326216673) Idiopathic chronic venous hypertension of right lower extremity with ulcer (I87.311) Active confirmed Problem Chronic venous hypertension with ulcer and inflammation involving left side (I87.332) Active confirmed Problem Abnormal arterial blood gas (446378048) Elevated carbon dioxide level (R79.81) Active confirmed Problem Skin ulcer of right knee, limited to breakdown of skin (L97.811) Active confirmed Encounters Encounter Location Date Provider Diagnosis [facility] [address] [place] [address] 04/07/2024 Armando Yañez [facility] [address] [place] [address] 12/02/2024 Armando De Leonsa Plan Of Treatment Pending Test Test Name Order Date CBC AUTO DIFF 08/27/2024 PROF CHEM 8 (BAS METB) 08/27/2024 VC SEGMENTAL PRESSURES 04/24/2024 Insurance Providers Payer Name Payer Address Payer Phone Subscriber Number Group Number Insured Name Patient Relationship to Insured Coverage Start Date Coverage End Date [facility] [employer] [employer] [address] [place] [address] [phone] [id number] Mitzi Macias Self - patient is the [...] (hyperlipidemia) E78.5 Elevated carbon dioxide level R79.81 terminal gauger (current) use of inhaled stero ids Z79.51 Anxiety and depression F41.8 GERD (gastroesophageal reflux disease) K 21.9 Surgical History Surgery Date(Month/Year) hysterectomy cholecystectomy toe surgery Hospitalization History Reason Date(Month/Year) Pneumonia -[facility] 08/31/2023 COPD Exacerbation-[facility] 09/10/2023
--- OUTSIDE RECORDS SUMMARY | 2025-02-25 13:28 | XMS_ITS | CCD ---
Author Organization [facility] Care Team Providers Care Manager Mining Name Role Phone James Benavidez Primary Care Provider JAMES BENAVIDEZ Primary Care Unavailable SHENDGE, VITHAL Admitting Unavailable SHENDGE, VITHAL Attending Unavailable AICHHOLZ, MCKAYLA Primary Care Unavailable AICHHOLZ, MCKAYLA Referring Unavailable AICHHOLZ, MCKAYLA J Primary Care Physician Tico, Stephanie Unavailable OLE RAMIREZ Attending Unavailable OLE RAMIREZ Consulting Unavailable AICHHOLZ, DIRECTOR HOSPICE OPERATIONS MCKAYLA Primary Care Unavailable OLE RAMIREZ Admitting Unavailable ANTONY SHRESTHA Consulting Unavailable ALONDRA ., UMBERTO Admitting Unavailable ALONDRA ., UMBERTO Attending Unavailable AICHHOLZ, DIRECTOR HOSPICE OPERATIONS MCKAYLA Primary Care Unavailable AFSANEH Loera, DR BOLANOS Consulting Unavailable MARYANNE POWER Consulting Unavailable GLENN KERR Consulting Unavailable YOMAIRA KERR Consulting Unavailable HATTIE GOFF Consulting Unavailable ALONDRA ., UMBERTO Consulting Unavailable TICO, STEPHANIE Attending Unavailable TICO, STEPHANIE Consulting Unavailable AICHHOLZ, DIRECTOR HOSPICE OPERATIONS MCKAYLA Primary Care Unavailable TICO, STEPHANIE Admitting Unavailable REGLA ., DR DUMONT Admitting Unavailable AICHHOLZ, DIRECTOR HOSPICE OPERATIONS MCKAYLA Primary Care Unavailable REGLA ., DR DUMONT Attending Unavailable ARAUZ ., DR DUMONT Consulting Unavailable COLLIN HUERTAS Consulting Unavailable CECILIA KAUFMAN Admitting Unavailable CECILIA KAUFMAN Attending Unavailable AICHHOLZ, DIRECTOR HOSPICE OPERATIONS MCKAYLA Primary Care Unavailable RAFAEL GONGORA Attending Unavailable RAFAEL GONGORA Admitting Unavailable AICHHOLZ, DIRECTOR HOSPICE OPERATIONS MCKAYLA Primary Care Unavailable AICHHOLZ, DIRECTOR HOSPICE OPERATIONS MCKAYLA Admitting Unavailable AICHHOLZ, DIRECTOR HOSPICE OPERATIONS MCKAYLA Primary Care Unavailable AICHHOLZ, DIRECTOR HOSPICE OPERATIONS MCKAYLA Attending Unavailable AICHHOLZ, DIRECTOR HOSPICE OPERATIONS MCKAYLA Consulting Unavailable LAKSHMIPATHY ., NARENDRANATH Attending Anette vailable LAKSHMIPATHY ., NARENDRANATH Consulting Anette vailable LAKSHMIPATHY ., NARENDRANATH Admitting Anette vailable AICHHOLZ, DIRECTOR HOSPICE OPERATIONS MCKAYLA Primary Care Unavailable VALENZUELA ., GIL Consulting Unavailable MORTENSEN ., DR CHAPARRO Aguillon Attending Unavailable MORTENSEN ., DR CHAPARRO Aguillon Admitting Unavailable AICHHOLZ, DIRECTOR HOSPICE OPERATIONS MCKAYLA Primary Care Unavailable VALENZUELA ., GIL Consulting Unavailable MORTENSEN ., DR CHAPARRO Aguillon Admitting Unavailable AICHHOLZ, DIRECTOR HOSPICE OPERATIONS MCKAYLA Primary Care Unavailable MORTENSEN ., DR CHAPARRO Aguillon Attending Unavailable HALKER ., SUBHASH Consulting Unavailable LAKSHMIPATHY ., NARENDRANATH Admitting Anette vailable LAKSHMIPATHY ., NARENDRANATH Attending Anette vailable AICHHOLZ, DIRECTOR HOSPICE OPERATIONS MCKAYLA Primary Care Unavailable MORTENSEN ., DR CHAPARRO Aguillon Attending Unavailable MORTENSEN ., DR CHAPARRO Aguillon Admitting Unavailable VALENZUELA ., GIL Consulting Unavailable AICHHOLZ, DIRECTOR HOSPICE OPERATIONS MCKAYLA Primary Care Unavailable VALENZUELA ., GIL Consulting Unavailable MORTENSEN ., DR CHAPARRO Aguillon Attending Unavailable MORTENSEN ., DR CHAPARRO Aguillon Admitting Unavailable AICHHOLZ, DIRECTOR HOSPICE OPERATIONS MCKAYLA Primary Care Unavailable HATTIE BRODERICK Attending Unavailable HATTIE BRODERICK Admitting Unavailable AICHHOLZ, DIRECTOR HOSPICE OPERATIONS MCKAYLA Primary Care Unavailable AICHHOLZ, DIRECTOR HOSPICE OPERATIONS MCKAYLA Admitting Unavailable AICHHOLZ, DIRECTOR HOSPICE OPERATIONS MCKAYLA Consulting Unavailable AICHHOLZ, DIRECTOR HOSPICE OPERATIONS MCKAYLA Primary Care Unavailable AICHHOLZ, DIRECTOR HOSPICE OPERATIONS MCKAYLA Attending Unavailable AICHHOLZ, DIRECTOR HOSPICE OPERATIONS MCKAYLA Primary Care Unavailable MISC, DR LESLIE Admitting Unavailable MISC, DR LESLIE Attending Unavailable MISC, DR LESLIE Consulting Unavailable DIAB ., MARIANO Admitting Unavailable DIAB ., MARIANO Attending Unavailable DIAB ., MARIANO Consulting Unavailable AICHHOLZ, DIRECTOR HOSPICE OPERATIONS MCKAYLA Primary Care Unavailable RASTEGAR, RICCO Consulting Unavailable AICHHOLZ, DIRECTOR HOSPICE OPERATIONS MCKAYLA Admitting Unavailable AICHHOLZ, DIRECTOR HOSPICE OPERATIONS MCKAYLA Primary Care Unavailable AICHHOLZ, DIRECTOR HOSPICE OPERATIONS MCKAYLA Attending Unavailable AICHHOLZ, DIRECTOR HOSPICE OPERATIONS MCKAYLA Consulting Unavailable DR PATRICIA VELOZ Consulting Unavailable TAMLYN ., CECILIA Attending Unavailable TAMLYN ., CECILIA Admitting Unavailable DR PATRICIA VELOZ Consulting Unavailable AICHHOLZ, DIRECTOR HOSPICE OPERATIONS MCKAYLA Primary Care Unavailable TAMLYN ., CECILIA Consulting Unavailable MORTENSEN ., DR CHAPARRO Aguillon Attending Unavailable FESTUS ., DR CHAPARRO Aguillon Consulting Unavailable FESTUS ., DR CHAPARRO Aguillon Admitting Unavailable AICHHOLZ, DIRECTOR HOSPICE OPERATIONS MCKAYLA Primary Care Unavailable HATTIE BRODERICK Attending Unavailable HATTIE BRODERICK Consulting Unavailable HATTIE BRODERICK Admitting Unavailable AICHHOLZ, DIRECTOR HOSPICE OPERATIONS MCKAYLA Primary Care Unavailable HATTIE BAUTISTA Unavailable AICHHOLZ, SAYDA MCKAYLA Admitting Unavailable AICHHOLZ, DIRECTOR HOSPICE OPERATIONS MCKAYLA Attending Unavailable AICHHOLZ, DIRECTOR HOSPICE OPERATIONS MCKAYLA Consulting Unavailable AICHHOLZ, DIRECTOR HOSPICE OPERATIONS MCKAYLA Primary Care Unavailable Brennan PHIPPS, Ty Primary Care Provider Brennan PHIPPS, Ty Primary Care Provider [phone] Aichholtalia SALES CONSULTING DIRECTOR, Mckayla Unavailable Aichholz SALES CONSULTING DIRECTOR, Mckayla Unavailable Elbert ARAUZ Attending Unavailable SARAH [...] Medication Allergies] Propensity to adverse reactions (disorder) [facility] Repository Medications Current Medications Medication [...] Start Date: 02/06/22 Status: Ordered HYDROcodone-acet aminophen ([place]) 5-325 MG tablet 1 tablet 3 (three) times a day as needed for severe pain. Active take 1 tablet by vandana twice daily as needed [place] 5-325 MG 1 tablet as needed Orally [...] every week ergocalciferol (Vitamin D2) 1.25 MG (24415 UT) capsule Indications: Vitamin D deficiency, unspecified Take 1 capsule (1.25 mg) by mouth 1 (one) time per week 12 capsule 1 01/16/2025 04/10/2025 Active Start: 10-27-2024 End: 01-19-2025 take 1 capsule by mouth two times weekly ergocalciferol (Vitamin D2) 1.25 MG (20594 UT) capsule Indications: Vitamin D deficiency, unspecified Take 1 capsule (1.25 mg) by mouth 2 (two) times a week 24 capsule 1 10/27/2024 01/19/2025 Active Start: 04-06-2024 End: 10-27-2024 take 1 capsule by mouth every week ergocalciferol (Vitamin D2) 1.25 MG (19646 UT) capsule Indications: Vitamin D deficiency, unspecified [...] 02/06/22 Status: Ordered take 1 tablet by [facility] every twenty-four hours Meloxicam 7.5 MG [...] 02-06-2022 Chronic Other aftercare (1 source) Other prison (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 therapy; Translations: [OTH SENIOR LIVING CURRENT DRUG THERAPY] Onset: 12-05-2022 Episodic Other aftercare (1 source) 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 Unclassified (1 source) LEAD SUSTAINABILITY SPECIALIST INJECT NONINSULN ANTIDIAB; Translations: [LEAD SUSTAINABILITY SPECIALIST INJECT NONINSULN ANTIDIAB] Onset: 12-05-2022 Unclassified (3 [...] 08-27-2024 08-27-2024 Episodic Other aftercare (3 sources) retirement (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; Translations: [LEAD SUSTAINABILITY SPECIALIST CURRENT USE OF INSULIN] Onset: 12-05-2022 Episodic Other aftercare (20 sources) Long-term current use of inhaled steroid; Translations: [retirement (current) use of inhaled steroids] Onset: 08-27-2024 [...] Range Facility Orders Onlyon 01-30-2025 Orders Only [id number] Mitzi Macias 1970 F Date Provider Department Center 01/30/2025 [id number], HISTORICAL [facility] Family History Problem Relation Age of Onset Heart attack Paternal Grandmother Family Status - Relation Status Age at Mother Father Paternal Grandmother Normal [facility] CA ECHO DOPPLER COMPLETEon 0 01-29-2025 [place] [address] Cardiology Report Signed Patient: MITZI MACIAS MR#: [id number] : 1970 Acct:[id number] Age/Sex: 54 / F ADM Date: 01/29/25 Loc: CARD Attending Dr: AMI ORO APRN Ordering Physician: AMI ORO APRN Date of Service: 01/29/25 Procedure(s): CA echo doppler complete Accession Number(s): [id number] cc: Mckayla Blas SALES CONSULTING DIRECTOR; AMI ORO APRN Patient Name: MITZI MACIAS MR#: [id number] : 1970 Exam Date: 01/29/2025 Ordering Doctor: AMI ORO [facility] ECHOCARDIOGRAM REPORT PROCEDURE: CA ECHO [...] HERRERA Signed By: 01/29/251839 DD/ 39 TD/TT: Chief Nuclear Medicine Technologist: [facility] Radiology, Radiologist, MD - 01/29/2025 [place] [address] Cardiology Report Signed Patient: MITZI MACIAS MR#: [id number] : 1970 Acct:[id number] Age/Sex: 54 / F ADM Date: 01/29/25 Loc: CARD Attending Dr: AMI ORO APRN Ordering Physician: AMI ORO APRN Date of Service: 01/29/25 Procedure(s): CA echo doppler complete Accession Number(s): [id number] cc: Mckayla Blas SALES CONSULTING DIRECTOR; AMI ORO APRN Patient Name: MITZI MACIAS MR#: [id number] : 1970 Exam Date: 01/29/2025 Ordering Doctor: [...] HERRERA Signed By: 01/29/251839 DD/ 39 TD/TT: Chief Nuclear Medicine Technologist: [facility] Radiology Study observation (narrative) [facility] CA ECHO DOPPLER COMPLETEOrde red By: Radiologist Radiology on 01-29-2025 [facility] Work Phone: Glucose (Bld) [Mass/Vol]on 0 01-29-2025 Glucose Blood, POC 121 mg/dL [facility] Laboratory - Hematology and Cell countson 01-29-2025 HbA1c (Bld) [Mass fraction] 8.4 % [facility] No Panel Informationon 01-29 Interpretation and review of laboratory results Abnormal [facility] Healthcare Office Visiton 01-06-2025 Follow-up visit [id number] Mitzi Macias 1970 F Date Provider Department Center 01/06/2025 AMI SARABIA CARD [facility] Family History Problem Relation Age of Onset Heart attack Paternal Grandmother Family Status - Relation Status Age at Mother Father Paternal Grandmother Level of Service:95487 [place] OFFICE/OUTPATIENT ESTABLISHED MOD MDM 30 MIN Reason for Visit and Comments: Congestive Heart Failure [127] Hypertension [706671] Hyperlipidemia [182] Normal [facility] 36on 10-21-2024 36 Regarding lab results from 10/08/2024: MD Mickie Merritt MA Lipids, ALT AST, and BMP are normal. HbA1c was not performed. Continue current management. LM on patient's VM. Normal [facility] Glucose (Bld) [Mass/Vol]Orde red By: Mica Sauceda on 10-08-2024 Glucose Blood, POC 97 mg/dL [facility] - Hematology and Cell countson 10-08-2024 HbA1c (Bld) [Mass fraction] 7.4 % [facility] No Panel InformationOrdered By: Mica Sauceda on 10-08-2024 [facility] TBH UA (CLEAN/CATCH) MICROSC OPIC IF INDICATEon 10-08-2024 BILIRUBIN URINE Negative NEGATIVE [facility] BLOOD URINE Negative NEGATIVE [facility] Clarity (U) CLEAR CLEAR [facility] Color (U) YELLOW YELLOW [facility] GLUCOSE URINE UA Negative NEGATIVE mg/dL [facility] Interpretation and review of laboratory results Abnormal [facility] Ketones Ql (U) Negative NEGATIVE mg/dL [facility] Leukocyte esterase Test strip Ql (U) Negative NEGATIVE [facility] NITRITE URINE Negative NEGATIVE [facility] pH (U) 5.5 [pH] 5.0 - 9.0 [facility] Protein (U) [Mass/Vol] 30 mg/dL Abnormal NEG/TRACE NO [facility] SPECIFIC GRAVITY URINE >=1.030 Abnormal 1.005 - 1.025 [facility] URINE MICROSCOPIC INDICATED YES [facility] UROBILINOGEN URINE 1.0 EU/dL 0.2 - 1.0 EU/dL [facility] ALL CBC WITH AUTO DIFFon BASOPHILS ABSOLUTE AUTO 0.1 [facility] Basophils/100 WBC (Bld) 0.5 % 0.2 - 2.0 % [facility] Eosinophils/100 WBC (Bld) 1.9 % 0.9 - 7.0 % [facility] Erythrocyte distribution width (RBC) [Ratio] 14.6 % 11.0 - 15.0 % [facility] Hematocrit (Bld) [Volume fraction] 50.9 % High 36.0 - 48.0 % [facility] Hemoglobin (Bld) [Mass/Vol] 16.1 g/dL High 12.0 - 16.0 g/dL [facility] IMMATURE GRANULOCYTES ABS AUTO 0.04 High [facility] Immature granulocytes/100 WBC (Bld) 0.3 % 0.0 - 0.5 % [facility] Interpretation and review of laboratory results Abnormal [facility] LYMPHOCYTES ABSOLUTE AUTO 3.2 [facility] Lymphocytes/100 WBC (Bld) 25.1 % 20.5 - 60.0 % [facility] MCH (RBC) [Entitic mass] 29.2 pg 26.7 - 34.0 pg [facility] MCHC (RBC) [Mass/Vol] 31.6 g/dL 29.9 - 35.2 g/dL [facility] MCV (RBC) [Entitic vol] 92.2 fL 81.0 - 99.0 fL [facility] MONOCYTES ABSOLUTE AUTO 0.7 [facility] Monocytes/100 WBC (Bld) 5.2 % 1.7 - 12.0 % [facility] NEUTROPHILS ABSOLUTE AUTO 8.6 High [facility] Neutrophils/100 WBC (Bld) 67 % 43.0 - 75.0 % [facility] Platelet mean volume (Bld) [Entitic vol] 12.8 fL 9.5 - 13.5 fL [facility] EO # 0.2 [facility] PLT 122 Low [facility] RBC 5.52 High [facility] WBC 12.8 High [facility] Office Visiton 08-08-2024 Follow-up visit [id number] Mitzi Macias 1970 F Date Provider Department Center 08/08/2024 [id number] BRIDGES [facility] Family History Problem Relation Age of Onset Heart attack Paternal Grandmother Family Status - Relation Status Age at Paternal Grandmother Level of Service:72711 MT OFFICE/OUTPATIENT ESTABLISHED MOD MDM 30 MIN Reason for Visit and Comments: Congestive Heart Failure [127] - Denies chest pain, SOB, and palpitations. Hypertension [489683] Hyperlipidemia [182] LVH [Other] Edema [[id number]] - Denies worsening edema. She sees wound care for RLE ulcer. She was seeing the vein specialists here in [facility] but they are moving to [place] in a few weeks. Normal [facility] Glucose (Bld) [Mass/Vol]Orde red By: Mica Sauceda on 05-27-2024 Glucose Blood, POC 158 mg/dL [facility] - Hematology and Cell countson 05-27-2024 HbA1c (Bld) [Mass fraction] 9.2 % [facility] No Panel InformationOrdered By: Mica Sauceda on 05-27-2024 [facility] CREATININEon 05-12-2024 Creatinine [Mass/Vol] 0.92 mg/dL 0.55 - 1.02 mg/dL [facility] GFR/1.73 sq M.predicted CKD-EPI (S/P/Bld) [Vol rate/Area] >60 >=60 mL/min/1.73m 2 [facility] EGFR-NON AF BRAZILIAN >60 >=60 mL/min/1.73m 2 [facility] CBC AUTO DIFFon 12-06-2022 BASO # 0.0 103/ul Normal 0.0-0.1 [facility] Comment on above: Performed By: #### C BC #### [facility] [address] [address] [address] Ashlie Hills Basophils/100 WBC (Bld) 0.1 % Critically low 0.2-2.0 [facility] Comment on above: Performed By: #### C BC #### [facility] [address] [address] [address] Ashlie Hills EO # 0.0 103/ul Normal 0.0-0.7 [facility] Comment on above: Performed By: #### C BC #### [facility] [address] [address] [address] Ashlie Hills Eosinophils/100 WBC (Bld) 0.0 % Critically low 0.9-7.0 [facility] Comment on above: Performed By: #### C BC #### [facility] [address] [place] [address] Dr. Ashlie Hills Erythrocyte distribution width (RBC) [Ratio] 14.9 % Normal 11.0-15.0 [facility] Comment on above: Performed By: #### C BC #### [facility] [address] [place] [address] Dr. Ashlie Hills Hematocrit (Bld) [Volume fraction] 46.2 % Normal 36.0-48.0 [facility] Comment on above: Performed By: #### C BC #### [facility] [address] [place] [address] Dr. Ashlie Hills Hemoglobin (Bld) [Mass/Vol] 14.7 g/dL Normal 12.0-16.0 [facility] Comment on above: Performed By: #### C BC #### [facility] [address] [address] [address] Ashlie Hills IG # 0.06 10e3/ul Critically high 0.00-0.03 [facility] Comment on above: Performed By: #### C BC #### [facility] [address] [place] [address] Dr. Ashlie Hills IG % 0.4 % Normal 0.0-0.5 [facility] Comment on above: Performed By: #### C BC #### [facility] [address] [place] [address] Dr. Ashlie Hills LYMPH # 1.3 103/ul Normal 1.2-3.8 [facility] Comment on above: Performed By: #### C BC #### [facility] [address] [place] [address] Dr. Ashlie Hills Lymphocytes/100 WBC (Bld) 9.4 % Critically low 20.5-60.0 [facility] Comment on above: Performed By: #### C BC #### [facility] [address] [place] [address] Dr. Ashlie Hills MANUAL DIFF REQ NO Normal [facility] Comment on above: Performed By: #### C BC #### [facility] [address] [place] [address] Dr. Ashlie Hills MCH (RBC) [Entitic mass] 28.4 pg Normal 26.7-34.0 [facility] Comment on above: Performed By: #### C BC #### [facility] [address] [place] [address] Dr. Ashlie Hills MCHC (RBC) [Mass/Vol] 31.8 g/dL Normal 29.9-35.2 [facility] Comment on above: Performed By: #### C BC #### [facility] [address] [place] [address] Dr. Ashlie Hills MCV (RBC) [Entitic vol] 89.4 fL Normal 81.0-99.0 [facility] Comment on above: Performed By: #### C BC #### [facility] [address] [place] [address] Dr. Ashlie Hills MONO # 0.5 103/ul Normal 0.3-0.8 [facility] Comment on above: Performed By: #### C BC #### [facility] [address] [place] [address] Dr. Ashlie Hills Monocytes/100 WBC (Bld) 3.4 % Normal 1.7-12.0 [facility] Comment on above: Performed By: #### C BC #### [facility] [address] [place] [address] Dr. Ashlie Hills NEUT # 11.8 103/ul Critically high 1.4-6.5 [facility] Comment on above: Performed By: #### C BC #### [facility] [address] [place] [address] Dr. Ashlie Hills Neutrophils/100 WBC (Bld) 86.7 % Critically high 43.0-75.0 [facility] Comment on above: Performed By: #### C BC #### [facility] [address] [place] [address] Dr. Ashlie Hills Platelet mean volume (Bld) [Entitic vol] 12.6 fL Normal 9.5-13.5 [facility] Comment on above: Performed By: #### C BC #### [facility] [address] [place] [address] Dr. Ashlie Hills PLT 133 103/ul Critically low 150-450 [facility] Comment on above: Performed By: #### C BC #### [facility] [address] [place] [address] Dr. Ashlie Hills RBC 5.17 106/ul Normal 4.20-5.40 [facility] Comment on above: Performed By: #### C BC #### [facility] [address] [place] [address] Dr. Ashlie Hills WBC 13.6 103/ul Critically high 4.0-11.0 [facility] Comment on above: Performed By: #### C BC #### [facility] [address] [place] [address] Dr. Ashlie Hills MAGNESIUMon 12-06-2022 Magnesium [Mass/Vol] 2.2 mg/dL Normal 1.8-2.4 [facility] Comment on above: Performed By: #### I NFLUAB #### [facility] [address] [place] [address] Dr. Ashlie Hills POINT OF CARE GLUCOSEon - Glucose [Mass/Vol] 340 mg/dL Critically high 74-106 T [facility] Comment on above: Performed By: #### P OCGLUC #### [facility] [address] [address] [address] Ashlie Hills Glucose [Mass/Vol] 276 mg/dL Critically high 74-106 [facility] Comment on above: Performed By: #### C BC #### [facility] [address] [address] [address] Ashlie Hills Glucose [Mass/Vol] 333 mg/dL Critically high 74-106 [facility] Comment on above: Performed By: #### C BC #### [facility] [address] [address] [address] Ashlie Hills PROF CHEM 8 (BAS METB)on Anion gap [Moles/Vol] 10.9 mmol/L Normal [facility] Comment on above: Performed By: #### I NFLUAB #### [facility] [address] [place] [address] Dr. Ashlie Hills Calcium [Mass/Vol] 9.3 mg/dL Normal 8.5-10.1 [facility] Comment on above: Performed By: #### I NFLUAB #### [facility] [address] [address] [address] Ashlie Hills Chloride [Moles/Vol] 103 mmol/L Normal 98-107 [facility] Comment on above: Performed By: #### I NFLUAB #### [facility] [address] [place] [address] Dr. Ashlie Hills CO2 [Moles/Vol] 31.2 mmol/L Normal 21.0-32.0 [facility] Comment on above: Performed By: #### I NFLUAB #### [facility] [address] [address] [address] Ashlie Hills Creatinine [Mass/Vol] 0.96 mg/dL Normal 0.55-1.02 [facility] Comment on above: Performed By: #### I NFLUAB #### [facility] [address] [address] [address] Ashlie Hills EGFR-AF BRAZILIAN >60 Normal >=60 [facility] Comment on above: Performed By: #### I NFLUAB #### [facility] [address] [address] [address] Ashlie Hills EGFR-NON AF BRAZILIAN >60 Normal >=60 [facility] Comment on above: Performed By: #### I NFLUAB #### [facility] [address] [address] [address] Ashlie Hills Glucose [Mass/Vol] 288 mg/dL Critically high 74-106 T [facility] Comment on above: Performed By: #### I NFLUAB #### [facility] [address] [address] [address] Ashlie Hills Potassium [Moles/Vol] 5.1 mmol/L Normal 3.5-5.1 [facility] Comment on above: Performed By: #### I NFLUAB #### [facility] [address] [place] [address] Dr. Ashlie Hills Sodium [Moles/Vol] 140 mmol/L Normal 136-145 [facility] Comment on above: Performed By: #### I NFLUAB #### [facility] [address] [place] [address] Dr. Ashlie Hills Urea nitrogen [Mass/Vol] 30.0 mg/dL Critically high 7.0-18.0 [facility] Comment on above: Performed By: #### I NFLUAB #### [facility] [address] [place] [address] Dr. Ashlie Hills Urea nitrogen/Creatinine [Mass ratio] 31.2 mg/mg Normal [facility] Comment on above: Performed By: #### I NFLUAB #### [facility] [address] [place] [address] Dr. Ashlie Hills CBC AUTO DIFFon 12-05-2022 BASO # 0.0 103/ul Normal 0.0-0.1 [facility] Comment on above: Performed By: #### C BC #### [facility] [address] [place] [address] Dr. Ashlie Hills Basophils/100 WBC (Bld) 0.4 % Normal 0.2-2.0 [facility] Comment on above: Performed By: #### C BC #### [facility] [address] [address] [address] Ashlie Hills EO # 0.0 103/ul Normal 0.0-0.7 [facility] Comment on above: Performed By: #### C BC #### [facility] [address] [place] [address] Dr. Ashlie Hills Eosinophils/100 WBC (Bld) 0.0 % Critically low 0.9-7.0 [facility] Comment on above: Performed By: #### C BC #### [facility] [address] [place] [address] Dr. Ashlie Hills Erythrocyte distribution width (RBC) [Ratio] 14.8 % Normal 11.0-15.0 [facility] Comment on above: Performed By: #### C BC #### [facility] [address] [place] [address] Dr. Ashlie Hills Hematocrit (Bld) [Volume fraction] 49.9 % Critically high 36.0-48.0 [facility] Comment on above: Performed By: #### C BC #### [facility] [address] [place] [address] Dr. Ashlie Hills Hemoglobin (Bld) [Mass/Vol] 15.7 g/dL Normal 12.0-16.0 [facility] Comment on above: Performed By: #### C BC #### [facility] [address] [place] [address] Dr. Ashlie Hills IG # 0.04 10e3/ul Critically high 0.00-0.03 [facility] Comment on above: Performed By: #### C BC #### [facility] [address] [place] [address] Dr. Ashlie Hills IG % 0.5 % Normal 0.0-0.5 [facility] Comment on above: Performed By: #### C BC #### [facility] [address] [place] [address] Dr. Ashlie Hills LYMPH # 1.1 103/ul Critically low 1.2-3.8 [facility] Comment on above: Performed By: #### C BC #### [facility] [address] [address] [address] Ashlie Hills Lymphocytes/100 WBC (Bld) 12.7 % Critically low 20.5-60.0 [facility] Comment on above: Performed By: #### C BC #### [facility] [address] [address] [address] Ashlie Hills MANUAL DIFF REQ NO Normal [facility] Comment on above: Performed By: #### C BC #### [facility] [address] [address] [address] Ashlie Hills MCH (RBC) [Entitic mass] 28.1 pg Normal 26.7-34.0 [facility] Comment on above: Performed By: #### C BC #### [facility] [address] [place] [address] Dr. Ashlie Hills MCHC (RBC) [Mass/Vol] 31.5 g/dL Normal 29.9-35.2 [facility] Comment on above: Performed By: #### C BC #### [facility] [address] [place] [address] Dr. Ashlie Hills MCV (RBC) [Entitic vol] 89.3 fL Normal 81.0-99.0 [facility] Comment on above: Performed By: #### C BC #### [facility] [address] [place] [address] Dr. Ashlie Hills MONO # 0.1 103/ul Critically low 0.3-0.8 [facility] Comment on above: Performed By: #### C BC #### [facility] [address] [place] [address] Dr. Ashlie Hills Monocytes/100 WBC (Bld) 1.3 % Critically low 1.7-12.0 [facility] Comment on above: Performed By: #### C BC #### [facility] [address] [place] [address] Dr. Ashlie Hills NEUT # 7.2 103/ul Critically high 1.4-6.5 [facility] Comment on above: Performed By: #### C BC #### [facility] [address] [address] [address] Ashlie Hills Neutrophils/100 WBC (Bld) 85.1 % Critically high 43.0-75.0 [facility] Comment on above: Performed By: #### C BC #### [facility] [address] [address] [address] Ashlie Hills Platelet mean volume (Bld) [Entitic vol] 12.2 fL Normal 9.5-13.5 [facility] Comment on above: Performed By: #### C BC #### [facility] [address] [address] [address] Ashlie Hills PLT 116 103/ul Critically low 150-450 [facility] Comment on above: Performed By: #### C BC #### [facility] [address] [place] [address] Dr. Ashlie Hills RBC 5.59 106/ul Critically high 4.20-5.40 [facility] Comment on above: Performed By: #### C BC #### [facility] [address] [address] [address] Ashlie Hills WBC 8.5 103/ul Normal 4.0-11.0 [facility] Comment on above: Performed By: #### C BC #### [facility] [address] [place] [address] Dr. Ashlie Hills CTA CHEST WO W [...] by: HATTIE GOFF Date: 2022-12-05 01:52 Normal [facility] MAGNESIUMon 12-05-2022 Magnesium [Mass/Vol] 2.1 mg/dL Normal 1.8-2.4 [facility] Comment on above: Performed By: #### P OCGLUC #### [facility] [address] [address] [address] Ashlie Hills POINT OF CARE GLUCOSEon 11-08 Glucose [Mass/Vol] 293 mg/dL Critically high [address] [place] [address] Comment on above: Performed By: #### P OCGLUC #### [facility] [address] [address] [address] Ashlie Hills Glucose [Mass/Vol] 269 mg/dL Critically high [facility] Comment on above: Performed By: #### P OCGLUC #### [facility] [address] [address] [address] Ashlie Hills Glucose [Mass/Vol] 223 mg/dL Critically high [address] [place] [address] Comment on above: Performed By: #### C VDAGS #### [facility] [address] [address] [address] Ashlie Hills PROF CHEM 8 (BAS METB)on Anion gap [Moles/Vol] 11.6 mmol/L Normal [facility] Comment on above: Performed By: #### P OCGLUC #### [facility] [address] [address] [address] Ashlie Hills Calcium [Mass/Vol] 9.2 mg/dL Normal 8.5-10.1 [facility] Comment on above: Performed By: #### P OCGLUC #### [facility] [address] [address] [address] Ashlie Hills Chloride [Moles/Vol] 102 mmol/L Normal 98-107 [facility] Comment on above: Performed By: #### P OCGLUC #### [facility] [address] [address] [address] Ashlie Hills CO2 [Moles/Vol] 28.7 mmol/L Normal 21.0-32.0 [facility] Comment on above: Performed By: #### P OCGLUC #### [facility] [address] [address] [address] Ashlie Hills Creatinine [Mass/Vol] 1.04 mg/dL Critically high 0.55-1.02 [facility] Comment on above: Performed By: #### P OCGLUC #### [facility] [address] [address] [address] Ashlie Hills EGFR-AF BRAZILIAN >60 Normal >=60 [facility] Comment on above: Performed By: #### P OCGLUC #### [facility] [address] [address] [address] Ashlie Hills EGFR-NON AF BRAZILIAN 56 mL/min/1.73m2 Critically low >=60 [facility] Comment on above: Performed By: #### P OCGLUC #### [facility] [address] [address] [address] Ashlie Hills Glucose [Mass/Vol] 231 mg/dL Critically high 74-106 [facility] Comment on above: Performed By: #### P OCGLUC #### [facility] [address] [address] [address] Ashlie Hills Potassium [Moles/Vol] 4.3 mmol/L Normal 3.5-5.1 [facility] Comment on above: Performed By: #### P OCGLUC #### [facility] [address] [place] [address] Dr. Ashlie Hills Sodium [Moles/Vol] 138 mmol/L Normal 136-145 [facility] Comment on above: Performed By: #### P OCGLUC #### [facility] [address] [place] [address] Dr. Ashlie Hills Urea nitrogen [Mass/Vol] 17.0 mg/dL Normal 7.0-18.0 [facility] Comment on above: Performed By: #### P OCGLUC #### [facility] [address] [place] [address] Dr. Ashlie Hills Urea nitrogen/Creatinine [Mass ratio] 16.3 mg/mg Normal [facility] Comment on above: Performed By: #### P OCGLUC #### [facility] [address] [place] [address] Dr. Ashlie Hills RESPIRATORY PANEL PLUSon Adenovirus Not detected Normal NOT DETECTED [facility] Comment on above: Performed By: #### C VDAGS #### [facility] [address] [place] [address] Dr. Ashlie Shaffer. Parapertusis Not detected Normal NOT DETECTED [facility] Comment on above: Performed By: #### C VDAGS #### [facility] [address] [place] [address] Dr. Ashlie Shaffer. Pertussis Not detected Normal NOT DETECTED [facility] Comment on above: Performed By: #### C VDAGS #### [facility] [address] [place] [address] Dr. Ashlie Hills Chlamydia Pneumoniae Not detected Normal NOT DETECTED [facility] Comment on above: Performed By: #### C VDAGS #### [facility] [address] [place] [address] Dr. Ashlie Hills Coronavirus 229E Not detected Normal NOT DETECTED [facility] Comment on above: Performed By: #### C VDAGS #### [facility] [address] [place] [address] Dr. Ashlie Hills Coronavirus HKU1 Not detected Normal NOT DETECTED [facility] Comment on above: Performed By: #### C VDAGS #### [facility] [address] [place] [address] Dr. Ashlie Hills Coronavirus NL63 Not detected Normal NOT DETECTED [facility] Comment on above: Performed By: #### C VDAGS #### [facility] [address] [address] [address] Ashlie Hills Coronavirus OC43 Not detected Normal NOT DETECTED [facility] Comment on above: Performed By: #### C VDAGS #### [facility] [address] [address] [address] Ashlie Hills Influenza A H1 Not detected Normal NOT DETECTED [facility] Comment on above: Performed By: #### C VDAGS #### [facility] [address] [place] [address] Dr. Ashlie Hills Influenza A H1 2009 Not detected Normal NOT DETECTED [facility] Comment on above: Performed By: #### C VDAGS #### [facility] [address] [place] [address] Dr. Ashlie Hills Influenza A H3 Not detected Normal NOT DETECTED [facility] Comment on above: Performed By: #### C VDAGS #### [facility] [address] [place] [address] Dr. Ashlie Hills Influenza B Not detected Normal NOT DETECTED [facility] Comment on above: Performed By: #### C VDAGS #### [facility] [address] [place] [address] Dr. Ashlie Hills Metapneumovirus Not detected Normal NOT DETECTED [facility] Comment on above: Performed By: #### C VDAGS #### [facility] [address] [place] [address] Dr. Ashlie Hills Mycoplas. Pneumoniae Not detected Normal NOT DETECTED [facility] Comment on above: Performed By: #### C VDAGS #### [facility] [address] [address] [address] Ashlie Hills Parainfluenza 1 Not detected Normal NOT DETECTED [facility] Comment on above: Performed By: #### C VDAGS #### [facility] [address] [place] [address] Dr. Ashlie Hills Parainfluenza 2 Not detected Normal NOT DETECTED [facility] Comment on above: Performed By: #### C VDAGS #### [facility] [address] [place] [address] Dr. Ashlie Hills Parainfluenza 3 Detected Abnormal NOT DETECTED [facility] Comment on above: Performed By: #### C VDAGS #### [facility] [address] [place] [address] Dr. Ashlie Hills Parainfluenza 4 Not detected Normal NOT DETECTED [facility] Comment on above: Performed By: #### C VDAGS #### [facility] [address] [place] [address] Dr. Ashlie Hills Rhino/Enterovirus Not detected Normal NOT DETECTED [facility] Comment on above: Performed By: #### C VDAGS #### [facility] [address] [place] [address] Dr. Ashlie Hills RP2 Header 1 RESPIRATORY PANEL: VIRUSES Normal [facility] Comment on above: Performed By: #### C VDAGS #### [facility] [address] [place] [address] Dr. Ashlie Hills RP2 Header 2 RESPIRATORY PANEL: BACTERIA Normal [facility] Comment on above: Performed By: #### C VDAGS #### [facility] [address] [place] [address] Dr. Ashlie Hills RSV Not detected Normal NOT DETECTED [facility] Comment on above: Performed By: #### C VDAGS #### [facility] [address] [place] [address] Dr. Ashlie Hills SARS-CoV-2 (COVID-19) RNA MADDY+probe Ql (Unsp spec) Not detected Normal NOT DETECTED [facility] Comment on above: Performed By: #### C VDAGS #### [facility] [address] [place] [address] Dr. Ashlie Hills XR CHEST 1 Von [...] by: MARYANNE POWER Date: 2022-12-04 22:23 Normal [facility] BLOOD GASES BTYon 12-04-2022 02 MODE ROOM AIR Normal [facility] Comment on above: Performed By: #### C BC #### [facility] [address] [place] [address] Dr. Ashlie Hills ALLENS TEST Positive [facility] Comment on above: Performed By: #### C BC #### [facility] [address] [place] [address] Dr. Ashlie Hills Base excess Calc (Bld) [Moles/Vol] 5.4 mmol/L Critically high -2.0-2.0 [facility] Comment on above: Performed By: #### C BC #### [facility] [address] [place] [address] Dr. Ashlie Hills BIPAP PRESSURE Normal [facility] Comment on above: Performed By: #### C BC #### [facility] [address] [place] [address] Dr. Ashlie Hills CPAP [facility] Comment on above: Performed By: #### C BC #### [facility] [address] [place] [address] Dr. Ashlie Hills FIO2 [facility] Comment on above: Performed By: #### C BC #### [facility] [address] [place] [address] Dr. Ashlie Hills HCO3 (Bld) [Moles/Vol] 30.8 mmol/L Critically high 22.0-26 .0 [facility] Comment on above: Performed By: #### C BC #### [facility] [address] [place] [address] Dr. [facility] Comment on above: Performed By: #### C BC #### [facility] [address] [address] [address] Ashlie Hills MINUTE VOLUME Normal [facility] Comment on above: Performed By: #### C BC #### [facility] [address] [place] [address] Dr. Ashlie Hills Oxygen (Bld) [Partial pressure] 46.3 mm[Hg] Critically low 80.0-100.0 [facility] Comment on above: Performed By: #### C BC #### [facility] [address] [place] [address] Dr. Ashlie Hills Oxygen saturation in Blood 83.9 % Critically low 95.0-100.0 [facility] Comment on above: Performed By: #### C BC #### [facility] [address] [place] [address] Dr. Ashlie Hills PCO2 54.2 mmHg Critically high 35.0-45.0 [facility] Comment on above: Performed By: #### C BC #### [facility] [address] [place] [address] Dr. Ashlie Hills PEEP [facility] Comment on above: Performed By: #### C BC #### [facility] [address] [place] [address] Dr. Ashlie Hills pH (Bld) 7.363 [pH] Normal 7.350-7.450 [facility] Comment on above: Performed By: #### C BC #### [facility] [address] [place] [address] Dr. Ashlie Hills PIP [facility] Comment on above: Performed By: #### C BC #### [facility] [address] [place] [address] Dr. Ashlie Hills PS [facility] Comment on above: Performed By: #### C BC #### [facility] [address] [place] [address] Dr. Ashlie Hills PUNCTURE SITE LR [facility] Comment on above: Performed By: #### C BC #### [facility] [address] [place] [address] Dr. Ashlie Hills [facility] Comment on above: Performed By: #### C BC #### [facility] [address] [place] [address] Dr. Ashlie Hills [facility] Comment on above: Performed By: #### C BC #### [facility] [address] [place] [address] Dr. Ashlie Hills [facility] Comment on above: Performed By: #### C BC #### [facility] [address] [place] [address] Dr. Ashlie Hills BNPon 12-04-2022 Natriuretic peptide B (Bld) [Mass/Vol] 76.0 pg/mL Normal <=900.0 [facility] Comment on above: Performed By: #### P OCGLUC #### [facility] [address] [place] [address] Dr. Ashlie Hills CBC AUTO DIFFon 12-04-2022 BASO # 0.1 103/ul Normal 0.0-0.1 [facility] Comment on above: Performed By: #### C BC #### [facility] [address] [place] [address] Dr. Ashlie Hills Basophils/100 WBC (Bld) 0.6 % Normal 0.2-2.0 [facility] Comment on above: Performed By: #### C BC #### [facility] [address] [place] [address] Dr. Ashlie Hills EO # 0.2 103/ul Normal 0.0-0.7 [facility] Comment on above: Performed By: #### C BC #### [facility] [address] [place] [address] Dr. Ashlie Hills Eosinophils/100 WBC (Bld) 1.9 % Normal 0.9-7.0 [facility] Comment on above: Performed By: #### C BC #### [facility] [address] [place] [address] Dr. Ashlie Hills Erythrocyte distribution width (RBC) [Ratio] 15.0 % Normal 11.0-15.0 [facility] Comment on above: Performed By: #### C BC #### [facility] [address] [place] [address] Dr. Ashlie Hills Hematocrit (Bld) [Volume fraction] 49.1 % Critically high 36.0-48.0 [facility] Comment on above: Performed By: #### C BC #### [facility] [address] [place] [address] Dr. Ashlie Hills Hemoglobin (Bld) [Mass/Vol] 15.6 g/dL Normal 12.0-16.0 [facility] Comment on above: Performed By: #### C BC #### [facility] [address] [place] [address] Dr. Ashlie Hills IG # 0.02 10e3/ul Normal 0.00-0.03 [facility] Comment on above: Performed By: #### C BC #### [facility] [address] [place] [address] Dr. Ashlie Hills IG % 0.2 % Normal 0.0-0.5 [facility] Comment on above: Performed By: #### C BC #### [facility] [address] [place] [address] Dr. Ashlie Hills LYMPH # 2.8 103/ul Normal 1.2-3.8 [facility] Comment on above: Performed By: #### C BC #### [facility] [address] [place] [address] Dr. Ashlie Hills Lymphocytes/100 WBC (Bld) 29.9 % Normal 20.5-60.0 [facility] Comment on above: Performed By: #### C BC #### [facility] [address] [place] [address] Dr. Ashlie Hills MANUAL DIFF REQ NO Normal [facility] Comment on above: Performed By: #### C BC #### [facility] [address] [place] [address] Dr. Ashlie Hills MCH (RBC) [Entitic mass] 28.5 pg Normal 26.7-34.0 [facility] Comment on above: Performed By: #### C BC #### [facility] [address] [address] [address] Ashlie Hills MCHC (RBC) [Mass/Vol] 31.8 g/dL Normal 29.9-35.2 [facility] Comment on above: Performed By: #### C BC #### [facility] [address] [address] [address] Ashlie Hills MCV (RBC) [Entitic vol] 89.8 fL Normal 81.0-99.0 [facility] Comment on above: Performed By: #### C BC #### [facility] [address] [address] [address] Ashlie Hills MONO # 1.0 103/ul Critically high 0.3-0.8 [facility] Comment on above: Performed By: #### C BC #### [facility] [address] [address] [address] Ashlie Hills Monocytes/100 WBC (Bld) 10.6 % Normal 1.7-12.0 [facility] Comment on above: Performed By: #### C BC #### [facility] [address] [place] [address] Dr. Ashlie Hills NEUT # 5.3 103/ul Normal 1.4-6.5 [facility] Comment on above: Performed By: #### C BC #### [facility] [address] [address] [address] Ashlie Hills Neutrophils/100 WBC (Bld) 56.8 % Normal 43.0-75.0 [facility] Comment on above: Performed By: #### C BC #### [facility] [address] [address] [address] Ashlie Hills Platelet mean volume (Bld) [Entitic vol] 12.5 fL Normal 9.5-13.5 [facility] Comment on above: Performed By: #### C BC #### [facility] [address] [address] [address] Ashlie Hills PLT 109 103/ul Critically low 150-450 [facility] Comment on above: Performed By: #### C BC #### [facility] [address] [address] [address] Ashlie Hills RBC 5.47 106/ul Critically high 4.20-5.40 [facility] Comment on above: Performed By: #### C BC #### [facility] [address] [place] [address] Dr. Ashlie Hills WBC 9.4 103/ul Normal 4.0-11.0 [facility] Comment on above: Performed By: #### C BC #### [facility] [address] [place] [address] Dr. Ashlie Hills PROF 14(COMP METB)on 023 Albumin [Mass/Vol] 2.9 g/dL Critically low 3.4-5.0 [facility] Comment on above: Performed By: #### C BC #### [facility] [address] [place] [address] Dr. Ashlie Hills Albumin/Globulin [Mass ratio] 0.6 {ratio} Normal [facility] Comment on above: Performed By: #### C BC #### [facility] [address] [place] [address] Dr. Ashlie Hills ALP [Catalytic activity/Vol] 64 U/L Normal 46-116 [facility] Comment on above: Performed By: #### C BC #### [facility] [address] [place] [address] Dr. Ashlie Hills ALT [Catalytic activity/Vol] 16 U/L Normal 14-59 [facility] Comment on above: Performed By: #### C BC #### [facility] [address] [place] [address] Dr. Ashlie Hills Anion gap [Moles/Vol] 9.6 mmol/L Normal [facility] Comment on above: Performed By: #### C BC #### [facility] [address] [place] [address] Dr. Ashlie Hills AST [Catalytic activity/Vol] 16 U/L Normal 15-37 [facility] Comment on above: Performed By: #### C BC #### [facility] [address] [address] [address] Ashlie Hills Bilirubin [Mass/Vol] 0.5 mg/dL Normal 0.2-1.0 [facility] Comment on above: Performed By: #### C BC #### [facility] [address] [address] [address] Ashlie Hills Calcium [Mass/Vol] 8.7 mg/dL Normal 8.5-10.1 [facility] Comment on above: Performed By: #### C BC #### [facility] [address] [address] [address] Ashlie Hills Chloride [Moles/Vol] 103 mmol/L Normal 98-107 [facility] Comment on above: Performed By: #### C BC #### [facility] [address] [place] [address] Dr. Ashlie Hills CO2 [Moles/Vol] 30.7 mmol/L Normal 21.0-32.0 [facility] Comment on above: Performed By: #### C BC #### [facility] [address] [place] [address] Dr. Ashlie Hills Creatinine [Mass/Vol] 0.96 mg/dL Normal 0.55-1.02 [facility] Comment on above: Performed By: #### C BC #### [facility] [address] [place] [address] Dr. Ashlie Hills EGFR-AF BRAZILIAN >60 Normal >=60 [facility] Comment on above: Performed By: #### C BC #### [facility] [address] [place] [address] Dr. Ashlie Hills EGFR-NON AF BRAZILIAN >60 Normal >=60 [facility] Comment on above: Performed By: #### C BC #### [facility] [address] [place] [address] Dr. Ashlie Hills Globulin (S) [Mass/Vol] 4.7 g/dL Normal [facility] Comment on above: Performed By: #### C BC #### [facility] [address] [place] [address] Dr. Ashlie Hills Glucose [Mass/Vol] 170 mg/dL Critically high 74-106 T [facility] Comment on above: Performed By: #### C BC #### [facility] [address] [address] [address] Ashlie Hills Potassium [Moles/Vol] 4.3 mmol/L Normal 3.5-5.1 [facility] Comment on above: Performed By: #### C BC #### [facility] [address] [address] [address] Ashlie Hills Protein [Mass/Vol] 7.6 g/dL Normal 6.4-8.2 [facility] Comment on above: Performed By: #### C BC #### [facility] [address] [place] [address] Dr. Ashlie Hills Sodium [Moles/Vol] 139 mmol/L Normal 136-145 [facility] Comment on above: Performed By: #### C BC #### [facility] [address] [place] [address] Dr. Ashlie Hills Urea nitrogen [Mass/Vol] 16.0 mg/dL Normal 7.0-18.0 [facility] Comment on above: Performed By: #### C BC #### [facility] [address] [place] [address] Dr. Ashlie Hills Urea nitrogen/Creatinine [Mass ratio] 16.7 mg/mg Normal [facility] Comment on above: Performed By: #### C BC #### [facility] [address] [place] [address] Dr. Ashlie Hills SYMPTOMATIC COVID-19 ANTIGEN on 12-04-2022 EUA Statement SEE BELOW Normal [facility] Comment on above: Result Comment: This [...] sooner. Performed By: #### C VDAGS #### [facility] [address] [place] [address] Dr. Ashlie Hills SARS-CoV-2 (COVID-19) RNA MADDY+probe Ql (Unsp spec) Negative Normal NEGATIVE [facility] Comment on above: Performed By: #### C VDAGS #### [facility] [address] [place] [address] Dr. Ashlie Hills TROPONIN, HIGH SENSITIVITYon 12-04-2022 HSTROP 8.9 pg/mL Normal 4.0-51.3 [facility] Comment on above: Result Comment: CUT- OFF POINTS HAVE BEEN ESTABLISHED BASED ON THE FOURTH UNIVERSAL DEFINITIONS OF MYOCARDIAL INFARCTION. THE UPPER REFERENCE LIMIT (URL) OF TROPONIN, DEFINED THE 99TH PERCENTILE OF cTnI DISTRIBUTION IN A REFERENCE POPULATION, HAS BEEN CONFIRMED THE DECISION THRESHOLD FOR MO DIAGNOSIS. Performed By: #### P OCGLUC #### [facility] [address] [place] [address] Dr. Ashlie Hills MICROALBUMIN, RAND URon 11-06 mALB 35.8 mg/dL Critically high <=30.0 [facility] Comment on above: Performed By: #### C VDAGS #### [facility] [address] [place], [place] [id number] Dr. Ashlie Hills UA RANDOM W/MICROSCOPICon BACTERIA NONE SEEN Normal NONE SEEN [facility] Comment on above: Performed By: #### C VDAGS #### [facility] [address] [place] [address] Dr. Ashlie Hills Bilirubin Ql (U) Negative Normal NEGATIVE [facility] Comment on above: Performed By: #### C VDAGS #### [facility] [address] [place] [address] Dr. Ashlie Hills CAST SEEN Abnormal NONE SEEN [facility] Comment on above: Performed By: #### C VDAGS #### [facility] [address] [place] [address] Dr. Ashlie Hills Clarity (U) CLEAR Normal CLEAR [facility] Comment on above: Performed By: #### C VDAGS #### [facility] [address] [place] [address] Dr. Ashlie Hills Color (U) YELLOW Normal YELLOW [facility] Comment on above: Performed By: #### C VDAGS #### [facility] [address] [place] [address] Dr. Ashlie Hills Crystals LM Nom (Urine sed) NONE SEEN Normal NONE SEEN [facility] Comment on above: Performed By: #### C VDAGS #### [facility] [address] [place] [address] Dr. Ashlie Hills Epithelial cells LM Ql (Urine sed) MODERATE Abnormal NONE SEEN /RARE [facility] Comment on above: Performed By: #### C VDAGS #### [facility] [address] [place] [address] Dr. Ashlie Hills Glucose Ql (U) Negative Normal NEGATIVE [facility] Comment on above: Performed By: #### C VDAGS #### [facility] [address] [place] [address] Dr. Ashlie Hills Hemoglobin Ql (U) TRACE-INTACT Abnormal NEGATIVE [facility] Comment on above: Performed By: #### C VDAGS #### [facility] [address] [place] [address] Dr. Ashlie Hills Ketones Ql (U) Negative Normal NEGATIVE [facility] Comment on above: Performed By: #### C VDAGS #### [facility] [address] [place] [address] Dr. Ashlie Hills LEUKOCYTES Negative Normal NEGATIVE [facility] Comment on above: Performed By: #### C VDAGS #### [facility] [address] [place] [address] Dr. Ashlie Hills MUCOUS NONE SEEN Normal NONE SEEN [facility] Comment on above: Performed By: #### C VDAGS #### [facility] [address] [place] [address] Dr. Ashlie Hills Nitrite Ql (U) Negative Normal NEGATIVE [facility] Comment on above: Performed By: #### C VDAGS #### [facility] [address] [place] [address] Dr. Ashlie Hills pH (U) 5.0 [pH] Normal 5-9 [facility] Comment on above: Performed By: #### C VDAGS #### [facility] [address] [place] [address] Dr. Ashlie Hills RBC 0-2 Normal 0-2 [facility] Comment on above: Performed By: #### C VDAGS #### [facility] [address] [place] [address] Dr. Ashlie Hills SPEC GRAVITY 1.030 Abnormal 1.005-<=1.025 [facility] Comment on above: Performed By: #### C VDAGS #### [facility] [address] [place] [address] Dr. Ashlie Hills UA PROTEIN 100 mg/dl Abnormal NEGATIVE/ TRACE [facility] Comment on above: Performed By: #### C VDAGS #### [facility] [address] [place] [address] Dr. Ashlie Hills Urobilinogen Qn (U) 0.2 {Little'U}/dL Normal 0.2 - 1. 0 [facility] Comment on above: Performed By: #### C VDAGS #### [facility] [address] [place] [address] Dr. Ashlie Hills WBC NONE SEEN Normal NONE SEEN [facility] Comment on above: Performed By: #### C VDAGS #### [facility] [address] [place] [address] Dr. Ashlie Hills CBC AUTO DIFFon 11-22-2022 BASO # 0.0 103/ul Normal 0.0-0.1 [facility] Comment on above: Performed By: #### C BC #### [facility] [address] [place] [address] Dr. Ashlie Hills Basophils/100 WBC (Bld) 0.3 % Normal 0.2-2.0 [facility] Comment on above: Performed By: #### C BC #### [facility] [address] [place] [address] Dr. Ashlie Hills EO # 0.4 103/ul Normal 0.0-0.7 [facility] Comment on above: Performed By: #### C BC #### [facility] [address] [place] [address] Dr. Ashlie Hills Eosinophils/100 WBC (Bld) 3.0 % Normal 0.9-7.0 [facility] Comment on above: Performed By: #### C BC #### [facility] [address] [place] [address] Dr. Ashlie Hills Erythrocyte distribution width (RBC) [Ratio] 15.3 % Critically high 11.0-15.0 [facility] Comment on above: Performed By: #### C BC #### [facility] [address] [place] [address] Dr. Ashlie Hills Hematocrit (Bld) [Volume fraction] 52.4 % Critically high 36.0-48.0 [facility] Comment on above: Performed By: #### C BC #### [facility] [address] [place] [address] Dr. Ashlie Hills Hemoglobin (Bld) [Mass/Vol] 16.8 g/dL Critically high 12.0-16.0 [facility] Comment on above: Performed By: #### C BC #### [facility] [address] [place] [address] Dr. Ashlie Hills IG # 0.04 10e3/ul Critically high 0.00-0.03 [facility] Comment on above: Performed By: #### C BC #### [facility] [address] [place] [address] Dr. Ashlie Hills IG % 0.3 % Normal 0.0-0.5 [facility] Comment on above: Performed By: #### C BC #### [facility] [address] [place] [address] Dr. Ashlie Hills LYMPH # 4.5 103/ul Critically high 1.2-3.8 [facility] Comment on above: Performed By: #### C BC #### [facility] [address] [place] [address] Dr. Ashlie Hills Lymphocytes/100 WBC (Bld) 33.2 % Normal 20.5-60.0 [facility] Comment on above: Performed By: #### C BC #### [facility] [address] [place] [address] Dr. Ashlie Hills MANUAL DIFF REQ NO Normal [facility] Comment on above: Performed By: #### C BC #### [facility] [address] [place] [address] Dr. Ashlie Hills MCH (RBC) [Entitic mass] 28.0 pg Normal 26.7-34.0 [facility] Comment on above: Performed By: #### C BC #### [facility] [address] [place] [address] Dr. Ashlie Hills MCHC (RBC) [Mass/Vol] 32.1 g/dL Normal 29.9-35.2 [facility] Comment on above: Performed By: #### C BC #### [facility] [address] [place] [address] Dr. Ashlie Hills MCV (RBC) [Entitic vol] 87.3 fL Normal 81.0-99.0 [facility] Comment on above: Performed By: #### C BC #### [facility] [address] [place] [address] Dr. Ashlie Hills MONO # 0.8 103/ul Normal 0.3-0.8 [facility] Comment on above: Performed By: #### C BC #### [facility] [address] [place] [address] Dr. Ashlie Hills Monocytes/100 WBC (Bld) 5.7 % Normal 1.7-12.0 [facility] Comment on above: Performed By: #### C BC #### [facility] [address] [place] [address] Dr. Ashlie Hills NEUT # 7.8 103/ul Critically high 1.4-6.5 [facility] Comment on above: Performed By: #### C BC #### [facility] [address] [place] [address] Dr. Ashlie Hills Neutrophils/100 WBC (Bld) 57.5 % Normal 43.0-75.0 [facility] Comment on above: Performed By: #### C BC #### [facility] [address] [place] [address] Dr. Ashlie Hills Platelet mean volume (Bld) [Entitic vol] 12.0 fL Normal 9.5-13.5 [facility] Comment on above: Performed By: #### C BC #### [facility] [address] [place] [address] Dr. Ashlie Hills PLT 152 103/ul Normal 150-450 [facility] Comment on above: Performed By: #### C BC #### [facility] [address] [place] [address] Dr. Ashlie Hills RBC 6.00 106/ul Critically high 4.20-5.40 [facility] Comment on above: Performed By: #### C BC #### [facility] [address] [place] [address] Dr. Ashlie Hills WBC 13.6 103/ul Critically high 4.0-11.0 [facility] Comment on above: Performed By: #### C BC #### [facility] [address] [place] [address] Dr. Ashlie Hills LIPID PROFILEon 11-22-2022 CHOL-HDL RATIO NORM SEE BELOW Normal [facility] Comment on above: Result Comment: 3.3 - 4.4 LOW RISK 4.4 - 7.1 AVERAGE RISK 7.1 - 11.0 MODERATE RISK >11.0 HIGH RISK Performed By: #### C BC #### [facility] [address] [place] [address] Dr. Ashlie Hills Cholesterol [Mass/Vol] 139 mg/dL Normal <=200 [facility] Comment on above: Performed By: #### C BC #### [facility] [address] [place] [address] Dr. Ashlie Hills Cholesterol in HDL [Mass/Vol] 35 mg/dL Critically low 40-60 [facility] Comment on above: Performed By: #### C BC #### [facility] [address] [address] [address] Ashlie Hills Cholesterol in LDL [Mass/Vol] 67.4 mg/dL Normal [facility] Comment on above: Performed By: #### C BC #### [facility] [address] [address] [address] Ashlie Hills Cholesterol.total/Chol esterol in HDL [Mass ratio] 4.0 {ratio} Normal [facility] Comment on above: Performed By: #### C BC #### [facility] [address] [place] [address] Dr. Ashlie Hills HDL NORMAL > or = 60 mg/dl - LOW CARDIOVASCULAR RISK <40 mg/dl - HIGH CARDIOVASCULAR RISK Normal [facility] Comment on above: Performed By: #### C BC #### [facility] [address] [place] [address] Dr. Ashlie Hills LDL CALC NORMAL SEE BELOW Normal [facility] Comment on above: Result Comment: <100 mg/dl OPTIMAL 100 - 129 mg/dl NEAR OR ABOVE OPTIMAL 130 - 159 mg/dl BORDERLINE HIGH 160 - 189 mg/dl HIGH >190 mg/dl VERY HIGH Performed By: #### C BC #### [facility] [address] [place] [address] Dr. Ashlie Hills Triglyceride [Mass/Vol] 183 mg/dL Critically high <=150 [facility] Comment on above: Performed By: #### C BC #### [facility] [address] [place] [address] Dr. Ashlie Hills VLDL CALC 36.6 mg/dL Normal [facility] Comment on above: Performed By: #### C BC #### [facility] [address] [place] [address] Dr. Ashlie Hills MG MAMM SCREEN 3D ALEX CADon 11-22-2022 MG MAMM SCREEN 3D ALEX CAD Patient: MITZI MACIAS Exam Date: 11/22/2022 : 1970 Gender:F Ordering : SAYDA BLAS [employer] Admission #: [id number] Family : Order #: [id number] CLICK HERE TO VIEW EXAM RADIOLOGY REPORT [...] unknown cancer at age 75. LOCATION: [facility] BREAST COMPOSITION: Almost entirely fatty. [...] Veloz M.D. on 11/22/2022 at 12:09 Normal [facility] PROF 14(COMP METB)on 023 Albumin [Mass/Vol] 3.0 g/dL Critically low 3.4-5.0 Th [facility] Comment on above: Performed By: #### C BC #### [facility] [address] [place], [place] [address] Dr. Ashlie Hills Albumin/Globulin [Mass ratio] 0.6 {ratio} Normal [facility] Comment on above: Performed By: #### C BC #### [facility] [address] [place], [place] [address] Dr. Ashlie Hills ALP [Catalytic activity/Vol] 68 U/L Normal 46-116 [facility] Comment on above: Performed By: #### C BC #### [facility] [address] [address] [address] Ashlie Hills ALT [Catalytic activity/Vol] 14 U/L Normal 14-59 [facility] Comment on above: Performed By: #### C BC #### [facility] [address] [address] [address] Ashlie Hills Anion gap [Moles/Vol] 12.1 mmol/L Normal [facility] Comment on above: Performed By: #### C BC #### [facility] [address] [address] [address] Ashlie Hills AST [Catalytic activity/Vol] 9 U/L Critically low 15-37 [facility] Comment on above: Performed By: #### C BC #### [facility] [address] [place] [address] Dr. Ashlie Hills Bilirubin [Mass/Vol] 0.4 mg/dL Normal 0.2-1.0 [facility] Comment on above: Performed By: #### C BC #### [facility] [address] [place] [address] Dr. Ashlie Hills Calcium [Mass/Vol] 9.0 mg/dL Normal 8.5-10.1 [facility] Comment on above: Performed By: #### C BC #### [facility] [address] [place] [address] Dr. Ashlie Hills Chloride [Moles/Vol] 105 mmol/L Normal 98-107 [facility] Comment on above: Performed By: #### C BC #### [facility] [address] [place] [address] Dr. Ashlie Hills CO2 [Moles/Vol] 30.7 mmol/L Normal 21.0-32.0 [facility] Comment on above: Performed By: #### C BC #### [facility] [address] [place] [address] Dr. Ashlie Hills Creatinine [Mass/Vol] 0.77 mg/dL Normal 0.55-1.02 [facility] Comment on above: Performed By: #### C BC #### [facility] [address] [address] [address] Ashlie Hills EGFR-AF BRAZILIAN >60 Normal >=60 [facility] Comment on above: Performed By: #### C BC #### [facility] [address] [id number] Ashlie Hills EGFR-NON AF BRAZILIAN >60 Normal >=60 [facility] Comment on above: Performed By: #### C BC #### [facility] [address] [address] [address] Ashlie Hills Globulin (S) [Mass/Vol] 4.8 g/dL Normal [facility] Comment on above: Performed By: #### C BC #### [facility] [address] [address] [address] Ashlie Hills Glucose [Mass/Vol] 162 mg/dL Critically high 74-106 T [facility] Comment on above: Performed By: #### C BC #### [facility] [address] [place] [address] Dr. Ashlie Hills Potassium [Moles/Vol] 3.8 mmol/L Normal 3.5-5.1 [facility] Comment on above: Performed By: #### C BC #### [facility] [address] [place] [address] Dr. Ahslie Hills Protein [Mass/Vol] 7.8 g/dL Normal 6.4-8.2 [facility] Comment on above: Performed By: #### C BC #### [facility] [address] [address] [address] Ashlie Hills Sodium [Moles/Vol] 144 mmol/L Normal 136-145 [facility] Comment on above: Performed By: #### C BC #### [facility] [address] [place] [address] Dr. Ashlie Hills Urea nitrogen [Mass/Vol] 24.0 mg/dL Critically high 7.0-18.0 [facility] Comment on above: Performed By: #### C BC #### [facility] [address] [place] [address] Dr. Ashlie Hills Urea nitrogen/Creatinine [Mass ratio] 31.2 mg/mg Normal [facility] Comment on above: Performed By: #### C BC #### [facility] [address] [place] [address] Dr. Ashlie Hills CBC AUTO DIFFon 10-05-2022 BASO # 0.1 103/ul Normal 0.0-0.1 [facility] Comment on above: Performed By: #### C BC #### [facility] [address] [place] [address] Dr. Ashlie Hills Basophils/100 WBC (Bld) 0.6 % Normal 0.2-2.0 [facility] Comment on above: Performed By: #### C BC #### [facility] [address] [place] [address] Dr. Ashlie Hills EO # 0.3 103/ul Normal 0.0-0.7 [facility] Comment on above: Performed By: #### C BC #### [facility] [address] [place] [address] Dr. Ashlie Hills Eosinophils/100 WBC (Bld) 2.1 % Normal 0.9-7.0 [facility] Comment on above: Performed By: #### C BC #### [facility] [address] [place] [address] Dr. Ashlie Hlils Erythrocyte distribution width (RBC) [Ratio] 15.9 % Critically high 11.0-15.0 [facility] Comment on above: Performed By: #### C BC #### [facility] [address] [place] [address] Dr. Ashlie Hills Hematocrit (Bld) [Volume fraction] 51.8 % Critically high 36.0-48.0 [facility] Comment on above: Performed By: #### C BC #### [facility] [address] [place] [address] Dr. Ashlie Hills Hemoglobin (Bld) [Mass/Vol] 16.6 g/dL Critically high 12.0-16.0 [facility] Comment on above: Performed By: #### C BC #### [facility] [address] [place] [address] Dr. Ashlie Hills IG # 0.03 10e3/ul Normal 0.00-0.03 [facility] Comment on above: Performed By: #### C BC #### [facility] [address] [place] [address] Dr. Ashlie Hills IG % 0.2 % Normal 0.0-0.5 [facility] Comment on above: Performed By: #### C BC #### [facility] [address] [place] [address] Dr. Ashlie Hills LYMPH # 3.9 103/ul Critically high 1.2-3.8 [facility] Comment on above: Performed By: #### C BC #### [facility] [address] [place] [address] Dr. Ashlie Hills Lymphocytes/100 WBC (Bld) 31.7 % Normal 20.5-60.0 [facility] Comment on above: Performed By: #### C BC #### [facility] [address] [place] [address] Dr. Ashlie Hills MANUAL DIFF REQ NO Normal [facility] Comment on above: Performed By: #### C BC #### [facility] [address] [place] [address] Dr. Ashlie Hills MCH (RBC) [Entitic mass] 27.9 pg Normal 26.7-34.0 [facility] Comment on above: Performed By: #### C BC #### [facility] [address] [place] [address] Dr. Ashlie Hills MCHC (RBC) [Mass/Vol] 32.0 g/dL Normal 29.9-35.2 [facility] Comment on above: Performed By: #### C BC #### [facility] [address] [place] [address] Dr. Ashlie Hills MCV (RBC) [Entitic vol] 87.1 fL Normal 81.0-99.0 [facility] Comment on above: Performed By: #### C BC #### [facility] [address] [place] [address] Dr. Ashlie Hills MONO # 0.7 103/ul Normal 0.3-0.8 [facility] Comment on above: Performed By: #### C BC #### [facility] [address] [place] [address] Dr. Ashlie Hills Monocytes/100 WBC (Bld) 5.8 % Normal 1.7-12.0 [facility] Comment on above: Performed By: #### C BC #### [facility] [address] [place] [address] Dr. Ashlie Hills NEUT # 7.3 103/ul Critically high 1.4-6.5 [facility] Comment on above: Performed By: #### C BC #### [facility] [address] [place] [address] Dr. Ashlie Hills Neutrophils/100 WBC (Bld) 59.6 % Normal 43.0-75.0 [facility] Comment on above: Performed By: #### C BC #### [facility] [facility] [address] [place] [address] Dr. Ashlie Hills Platelet mean volume (Bld) [Entitic vol] 11.7 fL Normal 9.5-13.5 [facility] Comment on above: Performed By: #### C BC #### [facility] [address] [place] [address] Dr. Ashlie Hills PLT 117 103/ul Critically low 150-450 [facility] Comment on above: Performed By: #### C BC #### [facility] [address] [place] [address] Dr. Ashlie Hills RBC 5.95 106/ul Critically high 4.20-5.40 [facility] Comment on above: Performed By: #### C BC #### [facility] [address] [place] [address] Dr. Ashlie Hills WBC 12.3 103/ul Critically high 4.0-11.0 [facility] Comment on above: Performed By: #### C BC #### [facility] [address] [place] [address] ABD/PELV W CONon [...] RICCO PICKARD Date: 2022-10-05 13:13 Normal [facility] ER URINE PROFILEon 3 Bilirubin Ql (U) Negative Normal NEGATIVE [facility] Comment on above: Performed By: #### P OCGLUC #### [facility] [address] [place] [address] Dr. Ashlie Hills Clarity (U) CLEAR Normal CLEAR [facility] Comment on above: Performed By: #### P OCGLUC #### [facility] [address] [place] [address] Dr. Ashlie Hills Color (U) YELLOW Normal YELLOW [facility] Comment on above: Performed By: #### P OCGLUC #### [facility] [address] [place] [address] Dr. Ashlie Hills ERUADE A micrscopic examination will be performed if indicated. Normal [facility] Comment on above: Performed By: #### P OCGLUC #### [facility] [address] [place] [address] Dr. Ashlie Hills Glucose Ql (U) Negative Normal NEGATIVE [facility] Comment on above: Performed By: #### P OCGLUC #### [facility] [address] [address] [address] Ashlie Hills Hemoglobin Ql (U) Negative Normal NEGATIVE [facility] Comment on above: Performed By: #### P OCGLUC #### [facility] [address] [address] [address] Ashlie Hills Ketones Ql (U) Negative Normal NEGATIVE [facility] Comment on above: Performed By: #### P OCGLUC #### [facility] [address] [address] [address] Ashlie Hills LEUKOCYTES Negative Normal NEGATIVE [facility] Comment on above: Performed By: #### P OCGLUC #### [facility] [address] [place] [address] Dr. Ashlie Hills Nitrite Ql (U) Negative Normal NEGATIVE [facility] Comment on above: Performed By: #### P OCGLUC #### [facility] [address] [place] [address] Dr. Ashlie Hills pH (U) 6.0 [pH] Normal 5-9 [facility] Comment on above: Performed By: #### P OCGLUC #### [facility] [address] [address] [address] Ashlie Hills Protein (U) [Mass/Vol] 100 mg/dL Abnormal NEGAT YURY/ TRACE [facility] Comment on above: Performed By: #### P OCGLUC #### [facility] [address] [address] [address] Ashlie Hills SPEC GRAVITY 1.010 Normal 1.005-<=1.025 [facility] Comment on above: Performed By: #### P OCGLUC #### [facility] [address] [place] [address] Dr. Ashlie Hills UR MICRO IND INDICATED Normal [facility] Comment on above: Performed By: #### P OCGLUC #### [facility] [address] [place] [address] Dr. Ashlie Hills Urobilinogen Qn (U) 1.0 {Little'U}/dL Normal 0.2 - 1. 0 [facility] Comment on above: Performed By: #### P OCGLUC #### [facility] [address] [place] [address] Dr. Ashlie Hills LIPASEon 10-05-2022 Lipase [Catalytic activity/Vol] 1771.0 U/L Critically high 73.0-393.0 [facility] Comment on above: Performed By: #### C BC #### [facility] [address] [place] [address] Dr. Ashlie Hills PREG HCG QUALon 10-05-2022 , QUAL Negative Normal NEGATIVE [facility] Comment on above: Performed By: #### P OCGLUC #### [facility] [address] [place] [address] Dr. Ashlie Hills PROF 14(COMP METB)on 023 Albumin [Mass/Vol] 3.2 g/dL Critically low 3.4-5.0 [facility] Comment on above: Performed By: #### C BC #### [facility] [address] [place] [address] Dr. Ashlie Hills Albumin/Globulin [Mass ratio] 0.7 {ratio} Normal [facility] Comment on above: Performed By: #### C BC #### [facility] [address] [place] [address] Dr. Ashlie Hills ALP [Catalytic activity/Vol] 70 U/L Normal 46-116 [facility] Comment on above: Performed By: #### C BC #### [facility] [address] [place] [address] Dr. Ashlie Hills ALT [Catalytic activity/Vol] 11 U/L Critically low 14-59 [facility] Comment on above: Performed By: #### C BC #### [facility] [address] [place] [address] Dr. Ashlie Hills Anion gap [Moles/Vol] 10.3 mmol/L Normal [facility] Comment on above: Performed By: #### C BC #### [facility] [address] [place] [address] Dr. Ashlie Hills AST [Catalytic activity/Vol] 11 U/L Critically low 15-37 [facility] Comment on above: Performed By: #### C BC #### [facility] [address] [address] [address] Ashlie Hills Bilirubin [Mass/Vol] 0.9 mg/dL Normal 0.2-1.0 [facility] Comment on above: Performed By: #### C BC #### [facility] [address] [address] [address] Ashlie Hills Calcium [Mass/Vol] 9.3 mg/dL Normal 8.5-10.1 [facility] Comment on above: Performed By: #### C BC #### [facility] [address] [address] [address] Ashlie Hills Chloride [Moles/Vol] 105 mmol/L Normal 98-107 [facility] Comment on above: Performed By: #### C BC #### [facility] [address] [address] [address] Ashlie Hills CO2 [Moles/Vol] 30.6 mmol/L Normal 21.0-32.0 [facility] Comment on above: Performed By: #### C BC #### [facility] [address] [address] [address] Ashlie Hills Creatinine [Mass/Vol] 0.62 mg/dL Normal 0.55-1.02 [facility] Comment on above: Performed By: #### C BC #### [facility] [address] [address] [address] Ashlie iHlls EGFR-AF BRAZILIAN >60 Normal >=60 [facility] Comment on above: Performed By: #### C BC #### [facility] [address] [address] [address] Ashlie Hills EGFR-NON AF BRAZILIAN >60 Normal >=60 [facility] Comment on above: Performed By: #### C BC #### [facility] [address] [address] [address] Ashlie Hills Globulin (S) [Mass/Vol] 4.6 g/dL Normal [facility] Comment on above: Performed By: #### C BC #### [facility] [address] [address] [address] Ashlie Hills Glucose [Mass/Vol] 85 mg/dL Normal 74-106 [facility] Comment on above: Performed By: #### C BC #### [facility] [address] [address] [address] Ashlie Hills Potassium [Moles/Vol] 3.9 mmol/L Normal 3.5-5.1 [facility] Comment on above: Performed By: #### C BC #### [facility] [address] [address] [address] Ashlie Hills Protein [Mass/Vol] 7.8 g/dL Normal 6.4-8.2 [facility] Comment on above: Performed By: #### C BC #### [facility] [address] [address] [address] Ashlie Hills Sodium [Moles/Vol] 142 mmol/L Normal 136-145 [facility] Comment on above: Performed By: #### C BC #### [facility] [address] [address] [address] Ashlie Hills Urea nitrogen [Mass/Vol] 12.0 mg/dL Normal 7.0-18.0 [facility] Comment on above: Performed By: #### C BC #### [facility] [address] [address] [address] Ashlie Hills Urea nitrogen/Creatinine [Mass ratio] 19.4 mg/mg Normal [facility] Comment on above: Performed By: #### C BC #### [facility] [address] [address] [address] Ashlie Hills URINE MICROSCOPIC ONLYon BACTERIA TRACE Abnormal NONE SEEN [facility] Comment on above: Performed By: #### P OCGLUC #### [facility] [address] [address] [address] Ashlie Hills Bacteria identified Cx Nom (U) NOT INDICATED Normal [facility] Comment on above: Performed By: #### P OCGLUC #### [facility] [address] [place] [address] Dr. Ashlie Hills CAST NONE SEEN Normal NONE SEEN [facility] Comment on above: Performed By: #### P OCGLUC #### [facility] [address] [place] [address] Dr. Ashlie Hills Crystals LM Nom (Urine sed) NONE SEEN Normal NONE SEEN [facility] Comment on above: Performed By: #### P OCGLUC #### [facility] [address] [place] [address] Dr. Ashlie Hills Epithelial cells LM Ql (Urine sed) MODERATE Abnormal NONE SEEN /RARE [facility] Comment on above: Performed By: #### P OCGLUC #### [facility] [address] [place] [address] Dr. Ashlie Hills MUCOUS NONE SEEN Normal NONE SEEN [facility] Comment on above: Performed By: #### P OCGLUC #### [facility] [address] [place] [address] Dr. Ashlie Hills RBC 0-2 Normal 0-2 [facility] Comment on above: Performed By: #### P OCGLUC #### [facility] [address] [place] [address] Dr. Ashlie Hills WBC 0-2 Abnormal NONE SEEN [facility] Comment on above: Performed By: #### P OCGLUC #### [facility] [address] [place] [address] Dr. Ashlie Hills [facility] SARS-CoV-2 (COVID-19) RNA MADDY+probe Ql (Unsp spec) Detected Abnormal NOT DETECTED [facility] Comment on above: Result Comment: This test is not yet approved or cleared by the [place] FDA. When there are no FDA-approved or cleared tests available, and other criteria are met, FDA can make tests available under an emergency access mechanism called an Emergency Use Authorization (EUA). The EUA for this test is supported by the [place] of Health and Human Service's declaration that [...] used). Performed By: #### C VDAGS #### [facility] [address] [place] [address] Dr. Ashlie Hills INFLUENZA A AND B AGon 09-21 [facility] SEE BELOW Normal [facility] Comment on above: Result Comment: Nega tive for Flu A protein angiten. Infection due to Flu A cannot be ruled out. Flu A angiten in the sample may be below the detection limit of the test. Performed By: #### I NFLUAB #### [facility] [address] [place] [address] Dr. Ashlie [facility] Normal [facility] Comment on above: Result Comment: Nega tive for Flu B protein antigen. Infection due to Flu B cannot be ruled out. Flu B antigen in the sample may be below the detection limit of the test. Performed By: #### I NFLUAB #### [facility] [address] [place] [address] Dr. Ashlie Hills INFLUENZA A AG Negative Normal NEGATIVE SEE COMMENT [facility] Comment on above: Performed By: #### I NFLUAB #### [facility] [address] [place] [address] Dr. Ashlie Hills INFLUENZA B AG Negative Normal NEGATIVE SEE COMMENT [facility] Comment on above: Performed By: #### I NFLUAB #### [facility] [address] [place] [address] ABD/PELV W CONon [...] to at least 10/21/2018, unchanged. https://www.ncbi.nlm .nih.gov/pmc/article s/SEI3504496/ Electronically authenticated by: COLLIN HUERTAS Date: 2022-07-27 14:56 Normal [facility] CREATININEon 07-18-2022 Creatinine [Mass/Vol] 0.81 mg/dL Normal 0.55-1.02 [facility] Comment on above: Performed By: #### C BC #### [facility] [address] [place] [address] Dr. Ashlie Hills EGFR-AF BRAZILIAN >60 Normal >=60 [facility] Comment on above: Performed By: #### C BC #### [facility] [address] [place] [address] Dr. Ashlie Hills EGFR-NON AF BRAZILIAN >60 Normal >=60 [facility] Comment on above: Performed By: #### C BC #### [facility] [address] [place] [address] LOW EXT W [...] PATRICIA VELOZ Date: 2022-07-18 14:58 Normal [facility] XR KNEE LT 1_2 Von [...] HATTIE BAUTISTA Date: 2022-07-18 12:00 Normal [facility] Covid-19 PCR ([facility])on 06-09 SARS-CoV-2 (COVID-19) RNA MADDY+probe Ql (Unsp spec) Not detected Normal NOT DETECTED [facility] Comment on above: Result Comment: This test is not yet approved or cleared by the [place] FDA. When there are no FDA-approved or cleared tests available, and other criteria are met, FDA can make tests available under an emergency access mechanism called an Emergency Use Authorization (EUA). The EUA for this test is supported by the [employer] of Health and Human Service's (HHS's) declaration [...] SARS-CoV-2. Performed By: #### C BC #### [facility] [address] [place] [address] Dr. Ashlie Hills INFLUENZA A AND B AGon 07-06 [facility] SEE BELOW Normal [facility] Comment on above: Result Comment: Nega tive for Flu A protein angiten. Infection due to Flu A cannot be ruled out. Flu A angiten in the sample may be below the detection limit of the test. Performed By: #### C BC #### [facility] [address] [place] [address] Dr. Ashlie Hills INFLUBNEGH SEE BELOW Normal [facility] Comment on above: Result Comment: Nega tive for Flu B protein antigen. Infection due to Flu B cannot be ruled out. Flu B antigen in the sample may be below the detection limit of the test. Performed By: #### C BC #### [facility] [address] [place] [address] Dr. Ashlie Hills INFLUENZA A AG Negative Normal NEGATIVE SEE COMMENT [facility] Comment on above: Performed By: #### C BC #### [facility] [address] [place] [address] Dr. Ashlie Hills INFLUENZA B AG Negative Normal NEGATIVE SEE COMMENT [facility] Comment on above: Performed By: #### C BC #### [facility] [address] [place] [address] Dr. Ashlie Hills POINT OF CARE GLUCOSEon 04-08 Glucose [Mass/Vol] 108 mg/dL Critically high 74-106 [facility] Comment on above: Performed By: #### C BC #### [facility] [address] [place] [address] Dr. Ashlie Hills RAGHU by IFAon 03-07-2022 Antinuclear Antibodies, IFA Negative Normal [facility] Comment on above: Result Comment: Nega tive <1:80 Borderline 1:80 Positive >1:80 ICAP nomenclature: AC-0 For more information about Hep-2 cell patterns use ANApatterns.org, the official website for the International Consensus on Antinuclear Antibody (RAGHU) Patterns (ICAP). Performed By: #### A NAIFA #### [facility] [address] [place] [address] Dr. Ashlie Hills IMMUNOFIXATION (TREVON), URINEo n 03-07-2022 TREVON Interpretation:U Comment Normal [facility] Comment on above: Result Comment: No m onoclonality detected. Performed By: #### C BC #### [facility] [address] [place] [address] Dr. Ashlie Hills IMMUNOFIXATION(TREVON),PROTEIN ELEC(PE),FREon 03-07-2022 Albumin [Mass/Vol] 3.0 g/dL Normal 2.9-4.4 [facility] Comment on above: Performed By: #### I NFLUAB #### [facility] [address] [place] [address] Dr. Ashlie Hills Albumin/Globulin [Mass ratio] 0.8 {ratio} Normal 0.7-1.7 [facility] Comment on above: Performed By: #### I NFLUAB #### [facility] [address] [place] [address] Dr. Ashlie Hills Eeesd-4-Saqltuzh 0.3 g/dL Normal 0.0-0.4 [facility] Comment on above: Performed By: #### I NFLUAB #### [facility] [address] [place] [address] Dr. Ashlie Hills Zruzk-5-Ysqlmwzj 1.0 g/dL Normal 0.4-1.0 [facility] Comment on above: Performed By: #### I NFLUAB #### [facility] [address] [place] [address] Dr. Ashlie Hills Beta Globulin 1.8 g/dL Critically high 0.7-1.3 [facility] Comment on above: Performed By: #### I NFLUAB #### [facility] [address] [place] [address] Dr. Ashlie Hills Free O'Neill Lt Chains,S 45.2 mg/L Critically high 3.3-19.4 [facility] Comment on above: Performed By: #### I NFLUAB #### [facility] [address] [place] [address] Dr. Ashlie Hills Free Lambda Lt Chains,S 40.3 mg/L Critically high 5.7-26.3 [facility] Comment on above: Performed By: #### I NFLUAB #### [facility] [address] [place] [address] Dr. Ashlie Hills Gamma Globulin 0.8 g/dL Normal 0.4-1.8 [facility] Comment on above: Performed By: #### I NFLUAB #### [facility] [address] [place] [address] Dr. Ashlie Hills Globulin (S) [Mass/Vol] 3.9 g/dL Normal 2.2-3.9 [facility] Comment on above: Performed By: #### I NFLUAB #### [facility] [address] [place] [address] Dr. Ashlie Hills Immunofixation Result, Serum Comment Normal [facility] Comment on above: Result Comment: No m onoclonality detected. Performed By: #### I NFLUAB #### [facility] [address] [place] [address] Dr. Ashlie Hills Immunoglobulin A, Qn, Serum 776 mg/dL Critically high 87-352 [facility] Comment on above: Performed By: #### I NFLUAB #### [facility] [address] [place] [address] Dr. Ashlie Hills Immunoglobulin G, Qn, Serum 955 mg/dL Normal 586-1602 [facility] Comment on above: Performed By: #### I NFLUAB #### [facility] [address] [place] [address] Dr. Ashlie Hills Immunoglobulin M, Qn, Serum 39 mg/dL Normal 26-217 [facility] Comment on above: Performed By: #### I NFLUAB #### [facility] [address] [place] [address] Dr. Ashlie Hills O'Neill/Lambda Ratio, S 1.12 Normal 0.26-1.65 [facility] Comment on above: Performed By: #### I NFLUAB #### [facility] [address] [place] [address] Dr. Ashlie Hills M-Bright Not Observed Normal Not Observed [facility] Comment on above: Performed By: #### I NFLUAB #### [facility] [address] [place] [address] Dr. Ashlie Hills PDF . Normal [facility] Comment on above: Performed By: #### I NFLUAB #### [facility] [address] [place] [address] Dr. Ashlie Hills Please note: Comment Normal [facility] Comment on above: Result Comment: Prot ein electrophoresis scan will follow via computer, mail, or bus assistant delivery. Performed By: #### I NFLUAB #### [facility] [address] [place] [address] Dr. Ashlie Hills Protein [Mass/Vol] 6.9 g/dL Normal 6.0-8.5 [facility] Comment on above: Performed By: #### I NFLUAB #### [facility] [address] [place] [address] Dr. Ashlie Hills C-PEPTIDE, SERUMon 2 C-Peptide, Serum 3.1 ng/mL Normal 1.1-4.4 [facility] Comment on above: Result Comment: C-Pe ptide reference interval is for fasting patients. Performed By: #### C PEPT #### [facility] [address] [place] [address] Dr. Ashlie Hills HEP B SURFACE ANTIGEN SCREEN on 03-04-2022 HBsAg Screen Negative Normal Negative [facility] Comment on above: Performed By: #### C BC #### [facility] [address] [place] [address] Dr. Ashlie Hills HEPATITIS C VIRUS AB W/ REFL EX QUANTon 03-04-2022 HCV AB <0.1 Normal 0.0-0.9 [facility] Comment on above: Performed By: #### I NFLUAB #### [facility] [address] [place] [address] Dr. Ashlie Hills Interpretation: Comment Normal [facility] Comment on above: Result Comment: Nega tive Not infected with HCV, unless recent infection is suspected or other evidence exists to indicate HCV infection. Performed By: #### I NFLUAB #### [facility] [address] [address] [address] Ashlie Hills MICROALBUMIN/ CREATININE RAT IOon 03-04-2022 Albumin, Urine 367.4 ug/mL Normal Not Estab. [facility] Comment on above: Performed By: #### C BC #### [facility] [address] [address] [address] Ashlie Hills Albumin/ Creatinine Ratio 239 mg/g creat Critically high 0-29 [facility] Comment on above: Result Comment: Norm al: 0 - 29 Moderately increased: 30 - 300 Severely increased: >300 Performed By: #### C BC #### [facility] [address] [address] [address] Ashlie Hills Creatinine, Urine 153.9 mg/dL Normal Not Estab. [facility] Comment on above: Performed By: #### C BC #### [facility] [address] [address] [address] Ashlie Hills VIT D 25-OH LABCORPon 2021 Vitamin D, 25-Hydroxy <4.0 Critically low 30.0-100.0 [facility] Comment on above: Result Comment: Graciela min D deficiency has been defined by the Gray of Medicine and an Endocrine Society practice guideline as a level of serum 25-OH vitamin D less than 20 ng/mL (1,2). The Endocrine Society went on to further define vitamin D insufficiency as a level between 21 and 29 ng/mL (2). 1. IOM (Gray of Medicine). 2010. Dietary reference intakes for calcium and D. [place]: The National Academies Press. 2. Lynda MF, Keely [place], Leandra LOPEZ, et al. Evaluation, treatment, and prevention of vitamin D deficiency: an Endocrine Society clinical practice guideline. JCEM. 2010; 96(7):1911-30. Performed By: #### C BC #### [facility] [address] [address] [address] Ashlie Hills GLYCOHEMOGLOBIN A1Con 2021 ADA RECOMMENDATION SEE BELOW Normal [facility] Comment on above: Result Comment: ADA RECOMMENDED LIMIT 4.0 - 6.0 ADA THERAPEUTIC TARGET < 7.0 ACTION SUGGESTED > 7.0 Performed By: #### C VDAGS #### [facility] [address] [place] [address] Dr. Ashlie Hills Glucose [Mass/Vol] 295 mg/dL Normal [facility] Comment on above: Performed By: #### C VDAGS #### [facility] [facility] [address] [place] [address] Dr. Ashlie Hills HbA1c (Bld) [Mass fraction] 11.9 % Critically high 4.5-6.2 [facility] Comment on above: Performed By: #### C VDAGS #### [facility] [address] [place] [address] Dr. Ashlie Hills HEMOGRAM AND PLATELon 2021 Hematocrit (Bld) [Volume fraction] 56.3 % Critically high 36.0-48.0 [facility] Comment on above: Performed By: #### C VDAGS #### [facility] [address] [place] [address] Dr. Ashlie Hills Hemoglobin (Bld) [Mass/Vol] 18.0 g/dL Critically high 12.0-16.0 [facility] Comment on above: Performed By: #### C VDAGS #### [facility] [address] [place] [address] Dr. Ashlie Hills MCH (RBC) [Entitic mass] 29.5 pg Normal 26.7-34.0 [facility] Comment on above: Performed By: #### C VDAGS #### [facility] [address] [place] [address] Dr. Ashlie Hills MCHC (RBC) [Mass/Vol] 32.0 g/dL Normal 29.9-35.2 [facility] Comment on above: Performed By: #### C VDAGS #### [facility] [address] [place] [address] Dr. Ashlie Hills MCV (RBC) [Entitic vol] 92.1 fL Normal 81.0-99.0 [facility] Comment on above: Performed By: #### C VDAGS #### [facility] [address] [address] [address] Ashlie Hills PLT 123 103/ul Critically low 150-450 [facility] Comment on above: Performed By: #### C VDAGS #### [facility] [address] [address] [address] Ashlie Hills RBC 6.11 106/ul Critically high 4.20-5.40 [facility] Comment on above: Performed By: #### C VDAGS #### [facility] [address] [place] [address] Dr. Ashlie Hills WBC 16.4 103/ul Critically high 4.0-11.0 [facility] Comment on above: Performed By: #### C VDAGS #### [facility] [address] [place] [address] Dr. Ashlie Hills LIPID PROFILEon 03-03-2022 CHOL-HDL RATIO NORM SEE BELOW Normal [facility] Comment on above: Result Comment: 3.3 - 4.4 LOW RISK 4.4 - 7.1 AVERAGE RISK 7.1 - 11.0 MODERATE RISK >11.0 HIGH RISK Performed By: #### C VDAGS #### [facility] [address] [place] [address] Dr. Ashlie Hills Cholesterol [Mass/Vol] 159 mg/dL Normal <=200 [facility] Comment on above: Performed By: #### C VDAGS #### [facility] [address] [place] [address] Dr. Ashlie Hills Cholesterol in HDL [Mass/Vol] 40 mg/dL Normal 40-60 [facility] Comment on above: Performed By: #### C VDAGS #### [facility] [address] [place] [address] Dr. Ashlie Hills Cholesterol in LDL [Mass/Vol] 81.8 mg/dL Normal [facility] Comment on above: Performed By: #### C VDAGS #### [facility] [address] [place] [address] Dr. Ashlie Hills Cholesterol.total/Chol esterol in HDL [Mass ratio] 4.0 {ratio} Normal [facility] Comment on above: Performed By: #### C VDAGS #### [facility] [address] [address] [address] Ashlie Hills HDL NORMAL > or = 60 mg/dl - LOW CARDIOVASCULAR RISK <40 mg/dl - HIGH CARDIOVASCULAR RISK Normal [facility] Comment on above: Performed By: #### C VDAGS #### [facility] [address] [address] [address] Ashlie Hills LDL CALC NORMAL SEE BELOW Normal [facility] Comment on above: Result Comment: <100 mg/dl OPTIMAL 100 - 129 mg/dl NEAR OR ABOVE OPTIMAL 130 - 159 mg/dl BORDERLINE HIGH 160 - 189 mg/dl HIGH >190 mg/dl VERY HIGH Performed By: #### C VDAGS #### [facility] [address] [address] [address] Ashlie Hills Triglyceride [Mass/Vol] 186 mg/dL Critically high <=150 [facility] Comment on above: Performed By: #### C VDAGS #### [facility] [address] [address] [address] Ashlie Hills VLDL CALC 37.2 mg/dL Normal [facility] Comment on above: Performed By: #### C VDAGS #### [facility] [address] [address] [address] Ashlie Hills RENAL FUNCTION PANELon 03-03 Albumin [Mass/Vol] 3.1 g/dL Critically low 3.4-5.0 [facility] Comment on above: Performed By: #### C BC #### [facility] [address] [address] [address] Ashlie Hills Calcium [Mass/Vol] 9.2 mg/dL Normal 8.5-10.1 [facility] Comment on above: Performed By: #### C BC #### [facility] [address] [address] [address] Ashlie Hills Chloride [Moles/Vol] 102 mmol/L Normal 98-107 [facility] Comment on above: Performed By: #### C BC #### [facility] [address] [address] [address] Ashlie Hills CO2 [Moles/Vol] 31.9 mmol/L Normal 21.0-32.0 [facility] Comment on above: Performed By: #### C BC #### [facility] [address] [address] [address] Ashlie Hills Creatinine [Mass/Vol] 0.68 mg/dL Normal 0.55-1.02 [facility] Comment on above: Performed By: #### C BC #### [facility] [address] [address] [address] Ashlie Hills EGFR-AF BRAZILIAN >60 Normal >=60 [facility] Comment on above: Performed By: #### C BC #### [facility] [address] [place] [address] Dr. Ashlie Hills EGFR-NON AF BRAZILIAN >60 Normal >=60 [facility] Comment on above: Performed By: #### C BC #### [facility] [address] [place] [address] Dr. Ashlie Hills Glucose [Mass/Vol] 131 mg/dL Critically high 74-106 [facility] Comment on above: Performed By: #### C BC #### [facility] [address] [place] [address] Dr. Ashlie Hills Phosphate [Mass/Vol] 4.0 mg/dL Normal 2.6-4.7 [facility] Comment on above: Performed By: #### C BC #### [facility] [address] [place] [address] Dr. Ashlie Hills Potassium [Moles/Vol] 4.0 mmol/L Normal 3.5-5.1 [facility] Comment on above: Performed By: #### C BC #### [facility] [address] [place] [address] Dr. Ashlie Hills Sodium [Moles/Vol] 141 mmol/L Normal 136-145 [facility] Comment on above: Performed By: #### C BC #### [facility] [address] [address] [address] Ashlie Hills Urea nitrogen [Mass/Vol] 17.0 mg/dL Normal 7.0-18.0 [facility] Comment on above: Performed By: #### C BC #### [facility] [address] [place] [address] Dr. Ashlie Hills UA RANDOM W/MICROSCOPICon BACTERIA NONE SEEN Normal NONE SEEN [facility] Comment on above: Performed By: #### I NFLUAB #### [facility] [address] [place] [address] Dr. Ashlie Hills Bilirubin Ql (U) Negative Normal NEGATIVE [facility] Comment on above: Performed By: #### I NFLUAB #### [facility] [address] [place] [address] Dr. Ashlie Hills CAST NONE SEEN Normal NONE SEEN [facility] Comment on above: Performed By: #### I NFLUAB #### [facility] [address] [place] [address] Dr. Ashlie Hills Clarity (U) CLEAR Normal CLEAR [facility] Comment on above: Performed By: #### I NFLUAB #### [facility] [address] [place] [address] Dr. Ashlie Hills Color (U) YELLOW Normal YELLOW [facility] Comment on above: Performed By: #### I NFLUAB #### [facility] [address] [place] [address] Dr. Ashlie Hills Crystals LM Nom (Urine sed) NONE SEEN Normal NONE SEEN [facility] Comment on above: Performed By: #### I NFLUAB #### [facility] [address] [place] [address] Dr. Ashlie Hills Epithelial cells LM Ql (Urine sed) FEW Abnormal NONE SEEN /RARE [facility] Comment on above: Performed By: #### I NFLUAB #### [facility] [address] [place] [address] Dr. Ashlie Hills Glucose Ql (U) Negative Normal NEGATIVE [facility] Comment on above: Performed By: #### I NFLUAB #### [facility] [address] [address] [address] Ashlie Hills Hemoglobin Ql (U) Negative Normal NEGATIVE [facility] Comment on above: Performed By: #### I NFLUAB #### [facility] [address] [address] [address] Ashlie Hills Ketones Ql (U) Negative Normal NEGATIVE [facility] Comment on above: Performed By: #### I NFLUAB #### [facility] [address] [address] [address] Ashlie Hills LEUKOCYTES Negative Normal NEGATIVE [facility] Comment on above: Performed By: #### I NFLUAB #### [facility] [address] [place] [address] Dr. Ashlie Hills MUCOUS NONE SEEN Normal NONE SEEN [facility] Comment on above: Performed By: #### I NFLUAB #### [facility] [address] [place] [address] Dr. Ashlie Hills Nitrite Ql (U) Negative Normal NEGATIVE [facility] Comment on above: Performed By: #### I NFLUAB #### [facility] [address] [place] [address] Dr. Ashlie Hills pH (U) 5.5 [pH] Normal 5-9 [facility] Comment on above: Performed By: #### I NFLUAB #### [facility] [address] [place] [address] Dr. Ashlie Hills RBC 0-2 Normal 0-2 [facility] Comment on above: Performed By: #### I NFLUAB #### [facility] [address] [place] [address] Dr. Ashlie Hills SPEC GRAVITY >=1.030 Abnormal 1.005-<=1.025 [facility] Comment on above: Performed By: #### I NFLUAB #### [facility] [address] [place] [address] Dr. Ashlie Hills UA PROTEIN 100 mg/dl Abnormal NEGATIVE/ TRACE [facility] Comment on above: Performed By: #### I NFLUAB #### [facility] [address] [place] [address] Dr. Ashlie Hills Urobilinogen Qn (U) 0.2 {Little'U}/dL Normal 0.2 - 1. 0 [facility] Comment on above: Performed By: #### I NFLUAB #### [facility] [address] [address] [address] Ashlie Hills WBC NONE SEEN Normal NONE SEEN [facility] Comment on above: Performed By: #### I NFLUAB #### [facility] [address] [address] [address] Ashlie Hills URIC ACID SERUMon 03-03-2022 Urate [Mass/Vol] 5.0 mg/dL Normal 2.6-6.0 [facility] Comment on above: Performed By: #### I NFLUAB #### [facility] [address] [place] [address] Dr. Ashlie Hills URINE T PROTEIN CREAT RATIOo n 03-03-2022 Protein (U) [Mass/Vol] 77.9 mg/dL Critically high <=12.0 [facility] Comment on above: Performed By: #### C VDAGS #### [facility] [address] [address] [address] Ashlie Hills UR PROT CREAT RAT 0.44 Normal [facility] Comment on above: Performed By: #### C VDAGS #### [facility] [address] [place] [address] Dr. Ashlie Hills URINE CREAT 175.15 mg/dL Normal 20.00-300.00 [facility] Comment on above: Performed By: #### C VDAGS #### [facility] [address] [place] [address] Dr. Ashlie Hills CULTURE URINEon 12-25-2021 CULTURE URINE Culture Observations: GREATER THAN TWO ORGANISMS PRESENT, HEAVILY MIXED. PLEASE RESUBMIT CLEAN CATCH MID-STREAM URINE IF CLINICALLY INDICATED. Normal [facility] Comment on above: Performed By: #### I NFLUAB #### [facility] [address] [place] [address] Dr. Ashlie Hills CBC AUTO DIFFon 12-24-2021 BASO # 0.1 103/ul Normal 0.0-0.1 [facility] Comment on above: Performed By: #### C BC #### [facility] [address] [place] [address] Dr. Ashlie Hills Basophils/100 WBC (Bld) 0.5 % Normal 0.2-2.0 [facility] Comment on above: Performed By: #### C BC #### [facility] [address] [place] [address] Dr. Ashlie Hills EO # 0.4 103/ul Normal 0.0-0.7 [facility] Comment on above: Performed By: #### C BC #### [facility] [address] [place] [address] Dr. Ashlie Hills Eosinophils/100 WBC (Bld) 2.4 % Normal 0.9-7.0 [facility] Comment on above: Performed By: #### C BC #### [facility] [address] [place] [address] Dr. Ashlie Hills Erythrocyte distribution width (RBC) [Ratio] 14.1 % Normal 11.0-15.0 [facility] Comment on above: Performed By: #### C BC #### [facility] [address] [place] [address] Dr. Ashlie Hills Hematocrit (Bld) [Volume fraction] 55.9 % Critically high 36.0-48.0 [facility] Comment on above: Performed By: #### C BC #### [facility] [address] [place] [address] Dr. Ashlie Hills Hemoglobin (Bld) [Mass/Vol] 17.9 g/dL Critically high 12.0-16.0 [facility] Comment on above: Performed By: #### C BC #### [facility] [address] [place] [address] Dr. Ashlie Hills IG # 0.06 10e3/ul Critically high 0.00-0.03 [facility] Comment on above: Performed By: #### C BC #### [facility] [address] [place] [address] Dr. Ashlie Hills IG % 0.4 % Normal 0.0-0.5 [facility] Comment on above: Performed By: #### C BC #### [facility] [address] [place] [address] Dr. Ashlie Hills LYMPH # 5.8 103/ul Critically high 1.2-3.8 [facility] Comment on above: Performed By: #### C BC #### [facility] [address] [place] [address] Dr. Ashlie Hills Lymphocytes/100 WBC (Bld) 35.4 % Normal 20.5-60.0 [facility] Comment on above: Performed By: #### C BC #### [facility] [address] [place] [address] Dr. Ashlie Hills MANUAL DIFF REQ NO Normal [facility] Comment on above: Performed By: #### C BC #### [facility] [address] [place] [address] Dr. Ashlie Hills MCH (RBC) [Entitic mass] 29.4 pg Normal 26.7-34.0 [facility] Comment on above: Performed By: #### C BC #### [facility] [address] [place] [address] Dr. Ashlie Hills MCHC (RBC) [Mass/Vol] 32.0 g/dL Normal 29.9-35.2 [facility] Comment on above: Performed By: #### C BC #### [facility] [address] [place] [address] Dr. Ashlie Hills MCV (RBC) [Entitic vol] 91.8 fL Normal 81.0-99.0 [facility] Comment on above: Performed By: #### C BC #### [facility] [address] [place] [address] Dr. Ashlie Hills MONO # 0.8 103/ul Normal 0.3-0.8 [facility] Comment on above: Performed By: #### C BC #### [facility] [address] [place] [address] Dr. Ashlie Hills Monocytes/100 WBC (Bld) 4.8 % Normal 1.7-12.0 [facility] Comment on above: Performed By: #### C BC #### [facility] [address] [address] [address] Ashlie Hills NEUT # 9.3 103/ul Critically high 1.4-6.5 [facility] Comment on above: Performed By: #### C BC #### [facility] [address] [address] [address] Ashlie Hills Neutrophils/100 WBC (Bld) 56.5 % Normal 43.0-75.0 [facility] Comment on above: Performed By: #### C BC #### [facility] [address] [address] [address] Ashlie Hills Platelet mean volume (Bld) [Entitic vol] 12.9 fL Normal 9.5-13.5 [facility] Comment on above: Performed By: #### C BC #### [facility] [address] [address] [address] Ashlie Hills PLT 127 103/ul Critically low 150-450 [facility] Comment on above: Performed By: #### C BC #### [facility] [address] [address] [address] Ashlie Hills RBC 6.09 106/ul Critically high 4.20-5.40 [facility] Comment on above: Performed By: #### C BC #### [facility] [address] [place] [address] Dr. Ashlie Hills WBC 16.4 103/ul Critically high 4.0-11.0 [facility] Comment on above: Performed By: #### C BC #### [facility] [address] [place] [address] ABD/PELVIS WO CONon [...] Severe right hip degenerative change. Normal [facility] URINE PROFILEon 2 Bilirubin Ql (U) Negative Normal NEGATIVE [facility] Comment on above: Performed By: #### E RUR, UMICRO #### [facility] [address] [place] [address] Dr. Ashlie Hills Clarity (U) CLEAR Normal CLEAR [facility] Comment on above: Performed By: #### E RUR, UMICRO #### [facility] [address] [place] [address] Dr. Ashlie Hills Color (U) DK. ORANGE Abnormal YELLOW [facility] Comment on above: Performed By: #### E RUR, UMICRO #### [facility] [address] [place] [address] Dr. Ashlie HOBBS A micrscopic examination will be performed if indicated. Normal [facility] Comment on above: Performed By: #### E RUR, UMICRO #### [facility] [address] [place] [address] Dr. Ashlie Hills Glucose Ql (U) 250 mg/dl Abnormal NEGATIVE [facility] Comment on above: Performed By: #### E RUR, UMICRO #### [facility] [address] [place] [address] Dr. Ashlie Hills Hemoglobin Ql (U) Negative Normal NEGATIVE [facility] Comment on above: Performed By: #### E RUR, UMICRO #### [facility] [address] [place] [address] Dr. Ashlie Hills Ketones Ql (U) Negative Normal NEGATIVE [facility] Comment on above: Performed By: #### E RUR, UMICRO #### [facility] [address] [place] [address] Dr. Ashlie Hills LEUKOCYTES Negative Normal NEGATIVE [facility] Comment on above: Performed By: #### E RUR, UMICRO #### [facility] [address] [place] [address] Dr. Ashlie Hills Nitrite Ql (U) Negative Normal NEGATIVE [facility] Comment on above: Performed By: #### E RUR, UMICRO #### [facility] [address] [place] [address] Dr. Ashlie Hills pH (U) 5.0 [pH] Normal 5-9 [facility] Comment on above: Performed By: #### MADELINE DIAZRO #### [facility] [address] [place] [address] Dr. Ashlie Hills Protein (U) [Mass/Vol] 100 mg/dL Abnormal NEGAT YURY/ TRACE [facility] Comment on above: Performed By: #### Tracey LYMAN, UMICRO #### [facility] [address] [place] [address] Dr. Ashlie Hills SPEC GRAVITY >=1.030 Abnormal 1.005-<=1.025 [facility] Comment on above: Performed By: #### Tracey LYMAN, MADELINERO #### [facility] [address] [place] [address] Dr. Ashlie Hills UR MICRO IND INDICATED Normal [facility] Comment on above: Performed By: #### Tracey LYMAN UMHARRIETRO #### [facility] [address] [place] [address] Dr. Ashlie Hills Urobilinogen Qn (U) 1.0 {Little'U}/dL Normal 0.2 - 1. 0 [facility] Comment on above: Performed By: #### Tracey LYMAN, MADELINERO #### [facility] [address] [place] [address] Dr. Ashlie Hills PROF CHEM 8 (BAS METB)on Anion gap [Moles/Vol] 12.1 mmol/L Normal [facility] Comment on above: Performed By: #### I NFLUAB #### [facility] [address] [place] [address] Dr. Ashlie Hills Calcium [Mass/Vol] 9.0 mg/dL Normal 8.5-10.1 [facility] Comment on above: Performed By: #### I NFLUAB #### [facility] [address] [place] [address] Dr. Ashlie Hills Chloride [Moles/Vol] 101 mmol/L Normal 98-107 [facility] Comment on above: Performed By: #### I NFLUAB #### [facility] [address] [address] [address] Ashlie Hills CO2 [Moles/Vol] 29.1 mmol/L Normal 21.0-32.0 [facility] Comment on above: Performed By: #### I NFLUAB #### [facility] [address] [address] [address] Ashlie Hills Creatinine [Mass/Vol] 0.86 mg/dL Normal 0.55-1.02 [facility] Comment on above: Performed By: #### I NFLUAB #### [facility] [address] [place] [address] Dr. Ashlie Hills EGFR-AF BRAZILIAN >60 Normal >=60 [facility] Comment on above: Performed By: #### I NFLUAB #### [facility] [address] [address] [address] Ashlie Hills EGFR-NON AF BRAZILIAN >60 Normal >=60 [facility] Comment on above: Performed By: #### I NFLUAB #### [facility] [address] [address] [address] Ashlie Hills Glucose [Mass/Vol] 236 mg/dL Critically high 74-106 [facility] Comment on above: Performed By: #### I NFLUAB #### [facility] [address] [address] [address] Ashlie Hills Potassium [Moles/Vol] 4.2 mmol/L Normal 3.5-5.1 [facility] Comment on above: Performed By: #### I NFLUAB #### [facility] [address] [address] [address] Ashlie Hills Sodium [Moles/Vol] 138 mmol/L Normal 136-145 [facility] Comment on above: Performed By: #### I NFLUAB #### [facility] [address] [address] [address] Ashlie Hills Urea nitrogen [Mass/Vol] 11.0 mg/dL Normal 7.0-18.0 [facility] Comment on above: Performed By: #### I NFLUAB #### [facility] [address] [place] [address] Dr. Ashlie Hills Urea nitrogen/Creatinine [Mass ratio] 12.8 mg/mg Normal [facility] Comment on above: Performed By: #### I NFLUAB #### [facility] [address] [place] [address] Dr. Ashlie Hills URINE MICROSCOPIC ONLYon BACTERIA SMALL Abnormal NONE SEEN [facility] Comment on above: Performed By: #### E RUR, UMICRO #### [facility] [address] [place] [address] Dr. Ashlie Hills Bacteria identified Cx Nom (U) INDICATED Normal [facility] Comment on above: Performed By: #### E RUR, UMICRO #### [facility] [address] [place] [address] Dr. Ashlie Hills CAST NONE SEEN Normal NONE SEEN [facility] Comment on above: Performed By: #### E RUR, UMICRO #### [facility] [address] [place] [address] Dr. Ashlie Hills Crystals LM Nom (Urine sed) NONE SEEN Normal NONE SEEN [facility] Comment on above: Performed By: #### E RUR, UMICRO #### [facility] [address] [place] [address] Dr. Ashlie Hills Epithelial cells LM Ql (Urine sed) MODERATE Abnormal NONE SEEN /RARE [facility] Comment on above: Performed By: #### E RUR, UMICRO #### [facility] [address] [place] [address] Dr. Ashlie Hills MUCOUS NONE SEEN Normal NONE SEEN [facility] Comment on above: Performed By: #### E RUR, UMICRO #### [facility] [address] [place] [address] Dr. Ashlie Hills RBC 0-2 Normal 0-2 [facility] Comment on above: Performed By: #### E NURA, UMICRO #### [facility] [address] [place] [address] Dr. Ashlie Hills WBC 0-2 Abnormal NONE SEEN [facility] Comment on above: Performed By: #### E EVONNE LYMAN #### [facility] [address] [address] [address] Ashlie Hills YEAST PRESENT Abnormal NONE SEEN [facility] Comment on above: Performed By: #### E EVONNE LYMAN #### [facility] [address] [address] [address] Ashlie Hills HIP RIGHT 1 OR 2 VWS WITH PE LVISon 07-20-2020 HIP RIGHT 1 OR 2 VWS WITH PELVIS [facility] Department of Radiology [address] [place] [address] Patient Name: MITZI MACIAS : 1970 Sex: F Age: Race: White Pt. Location: Patient Status: O Ordered Date: 07/20/2020 1:45:00 PM Completed Date: 07/20/2020 01:57 PM Requesting Provider: LIZ EISENBERG Attending Provider: LIZ EISENBERG Report Copy To: MCKAYLA BLAS Signs & Symptoms: M25.551 Pain in right hip I10 History: [place] Comments: evaluate Exam: HIP RIGHT 1 OR [...] MRI. Electronically signed: Pipo Acevedo. Transcribed by: [email or web address], User Resident: Electronically Signed by: PIPO ACEVEDO @ 07/20/2020 03:45 PM Normal [facility] Comment on above: Order Comment: evalu ate Vital Signs Date Time Vital Sign Value Performing Clinician Facility 01-29-2025 09:48-0400 Body height 170.2 cm Rain Souza MD Work Phone: [facility] 01-29-2025 09:48-0400 Body mass index (BMI) [Ratio] 56.38 kg/m2 Rain Souza MD Work Phone: [facility] 01-29-2025 09:48-0400 Body weight 163.29 kg Rain Souza MD Work Phone: [facility] 01-29-2025 09:48-0400 Diastolic blood pressure 70 mm[Hg] Rain Souza MD Work Phone: [facility] 01-29-2025 09:48-0400 Heart rate 72 /min Rain Souza MD Work Phone: [facility] 01-29-2025 09:48-0400 Respiratory rate 16 /min Rain Souza MD Work Phone: [facility] 01-29-2025 09:48-0400 SaO2% (BldA) [Mass fraction] 84 % Rain Souza MD Work Phone: [facility] 01-29-2025 09:48-0400 Systolic blood pressure 130 mm[Hg] Rain Souza MD Work Phone: [facility] 01-26-2025 18:11-0400 Body mass index (BMI) [Ratio] 58.64 kg/m2 Mckayla Blas NP Work Phone: [facility] 01-26-2025 18:11-0400 Body temperature 98.49 [degF] Mckayla Aichholz SALES CONSULTING DIRECTOR Work Phone: [facility] 01-26-2025 18:11-0400 Body weight 169.83 kg Mckayla Aichholz SALES CONSULTING DIRECTOR Work Phone: [facility] 01-26-2025 18:11-0400 Diastolic blood pressure 82 mm[Hg] Mckayla Aichholz SALES CONSULTING DIRECTOR Work Phone: [facility] 01-26-2025 18:11-0400 Heart rate 81 /min Mckayla Aichholz SALES CONSULTING DIRECTOR Work Phone: [facility] 01-26-2025 18:11-0400 Respiratory rate 20 /min Mckayla Aichholz SALES CONSULTING DIRECTOR Work Phone: [facility] 01-26-2025 18:11-0400 SaO2% (BldA) [Mass fraction] 90 % Mckayla Aichholz SALES CONSULTING DIRECTOR Work Phone: [facility] 01-26-2025 18:11-0400 Systolic blood pressure 126 mm[Hg] Mckayla Aichholz SALES CONSULTING DIRECTOR Work Phone: [facility] 12-09-2024 10:19-0400 Body temperature 98.01 [degF] Mckayla Aichholz SALES CONSULTING DIRECTOR Work Phone: [facility] 12-09-2024 10:19-0400 Diastolic blood pressure 76 mm[Hg] Mckayla Aichholz SALES CONSULTING DIRECTOR Work Phone: [facility] 12-09-2024 10:19-0400 Heart rate 71 /min Mckayla Aichholz SALES CONSULTING DIRECTOR Work Phone: [facility] 12-09-2024 10:19-0400 Respiratory rate 20 /min Mckayla Aichholz SALES CONSULTING DIRECTOR Work Phone: [facility] 12-09-2024 10:19-0400 SaO2% (BldA) [Mass fraction] 88 % Mckayla Aichholz SALES CONSULTING DIRECTOR Work Phone: [facility] 12-09-2024 10:19-0400 Systolic blood pressure 150 mm[Hg] Mckayla Blas SALES CONSULTING DIRECTOR Work Phone: [facility] 10-27-2024 14:11-0400 Body height 170.2 cm Mckayla Blas SALES CONSULTING DIRECTOR Work Phone: [facility] 10-27-2024 14:11-0400 Body mass index (BMI) [Ratio] 56.51 kg/m2 Mckaylajuvenal Rosenbergz SALES CONSULTING DIRECTOR Work Phone: [facility] 10-27-2024 14:11-0400 Body temperature 98.71 [degF] Mckayla Rosenbergz SALES CONSULTING DIRECTOR Work Phone: [facility] 10-27-2024 14:11-0400 Body weight 163.66 kg Mckayla Blas SALES CONSULTING DIRECTOR Work Phone: [facility] 10-27-2024 14:11-0400 Diastolic blood pressure 74 mm[Hg] Mckayla Rosenbergz SALES CONSULTING DIRECTOR Work Phone: [facility] 10-27-2024 14:11-0400 Heart rate 75 /min Mckaylajuvenal Rosenbergz SALES CONSULTING DIRECTOR Work Phone: [facility] 10-27-2024 14:11-0400 Respiratory rate 18 /min Mckaylajuvenal Blas SALES CONSULTING DIRECTOR Work Phone: [facility] 10-27-2024 14:11-0400 SaO2% (BldA) [Mass fraction] 90 % Mckaylajuvenal Rosenbergz SALES CONSULTING DIRECTOR Work Phone: [facility] 10-27-2024 14:11-0400 Systolic blood pressure 132 mm[Hg] Mckayla Rosenbergz SALES CONSULTING DIRECTOR Work Phone: [facility] 10-08-2024 11:040 Body height 170.2 cm Rain Souza MD Work Phone: [facility] 10-08-2024 11:21-0400 Body mass index (BMI) [Ratio] 55.91 kg/m2 Rain Souza MD Work Phone: [facility] 10-08-2024 11:21-0400 Body weight 161.93 kg Rain Souza MD Work Phone: [facility] 10-08-2024 11:21-0400 Diastolic blood pressure 70 mm[Hg] Rain Souza MD Work Phone: [facility] 10-08-2024 11:21-0400 Heart rate 70 /min Rain Souza MD Work Phone: [facility] 10-08-2024 11:21-0400 Respiratory rate 16 /min Rain Souza MD Work Phone: [facility] 10-08-2024 11:21-0400 SaO2% (BldA) [Mass fraction] 91 % Rain Souza MD Work Phone: [facility] 10-08-2024 11:21-0400 Systolic blood pressure 130 mm[Hg] Rain Souza MD Work Phone: [facility] 08-27-2024 17:44-0500 Body mass index (BMI) [Ratio] 57.31 kg/m2 Mckayla Wan SALES CONSULTING DIRECTOR Work Phone: [facility] 08-27-2024 17:44-0500 Body temperature 98.01 [degF] Mckayla Wan SALES CONSULTING DIRECTOR Work Phone: [facility] 08-27-2024 17:44-0500 Body weight 165.97 kg Mckayla Wan SALES CONSULTING DIRECTOR Work Phone: [facility] 08-27-2024 17:44-0500 Diastolic blood pressure 76 mm[Hg] Mckayla Wan SALES CONSULTING DIRECTOR Work Phone: [facility] 08-27-2024 17:44-0500 Heart rate 83 /min Mckayla Wan SALES CONSULTING DIRECTOR Work Phone: [facility] 08-27-2024 17:44-0500 Respiratory rate 18 /min Mckayla Wan SALES CONSULTING DIRECTOR Work Phone: [facility] 02-19-2025 17:44-0500 SaO2% (BldA) [Mass fraction] 91 % Mckayla Sowdona SALES CONSULTING DIRECTOR Work Phone: [facility] 08-27-2024 17:44-0500 Systolic blood pressure 134 mm[Hg] Mckayla Patriciajodie SALES CONSULTING DIRECTOR Work Phone: [facility] 06-11-2024 10:00-0500 Blood Pressure Location Elbert ARAUZ [facility] 06-11-2024 10:00-0500 Diastolic blood pressure 68 mm[Hg] Elbert ARAUZ [facility] 06-11-2024 10:00-0500 Heart rate 76 /min Elbert ARAUZ [facility] 06-11-2024 10:00-0500 Systolic blood pressure 132 mm[Hg] Elbert ARAUZ [facility] 05-27-2024 10:20-0500 Body height 170.2 cm Rain Souza MD Work Phone: [facility] 05-27-2024 10:20-0500 Body mass index (BMI) [Ratio] 56.7 kg/m2 Rain Souza MD Work Phone: [facility] 05-27-2024 10:20-0500 Body weight 164.2 kg Rain Souza MD Work Phone: [facility] 05-27-2024 10:20-0500 Diastolic blood pressure 66 mm[Hg] Rain Souza MD Work Phone: [facility] 05-27-2024 10:20-0500 Heart rate 72 /min Rain Souza MD Work Phone: [facility] 05-27-2024 10:20-0500 Respiratory rate 16 /min Rain Souza MD Work Phone: [facility] 05-27-2024 10:20-0500 Systolic blood pressure 128 mm[Hg] Rain Souza MD Work Phone: [facility] 04-14-2024 10:27-0400 Body height 165.1 cm Mckayla Sowdona SALES CONSULTING DIRECTOR Work Phone: [facility] 04-14-2024 10:27-0400 Body mass index (BMI) [Ratio] 61.01 kg/m2 Mckayla Wan SALES CONSULTING DIRECTOR Work Phone: [facility] 04-14-2024 10:27-0400 Body temperature 98.49 [degF] Mckayla Wan SALES CONSULTING DIRECTOR Work Phone: [facility] 04-14-2024 10:27-0400 Body weight 166.29 kg Mckayla Wan SALES CONSULTING DIRECTOR Work Phone: [facility] 04-14-2024 10:27-0400 Diastolic blood pressure 80 mm[Hg] Mckayla Chetz SALES CONSULTING DIRECTOR Work Phone: [facility] 04-14-2024 10:27-0400 Heart rate 77 /min Mckayla Chetz SALES CONSULTING DIRECTOR Work Phone: [facility] 04-14-2024 10:27-0400 Respiratory rate 19 /min Mckayla Chetz SALES CONSULTING DIRECTOR Work Phone: [facility] 04-14-2024 10:27-0400 SaO2% (BldA) [Mass fraction] 92 % Mckayla Chetz SALES CONSULTING DIRECTOR Work Phone: [facility] 04-14-2024 10:27-0400 Systolic blood pressure 116 mm[Hg] Mckayla Chetz SALES CONSULTING DIRECTOR Work Phone: [facility] 03-08-2022 15:00-0400 Body height 170.18 cm Stephanie Tico Other [facility] [employer] Other 03-08-2022 15:00-0400 Body temperature 97.6 [degF] Stephanie Tico Other [employer] Other 03-08-2022 15:00-0400 Diastolic blood pressure 72 mm[Hg] Stephanie Tico Other [employer] Other 03-08-2022 15:00-0400 Respiratory rate 20 /min Stephanie Tico Other [employer] Other 03-08-2022 15:00-0400 SaO2% (BldA) [Mass fraction] 91 % Stephanie Tico Other [employer] Other 03-08-2022 15:00-0400 Systolic blood pressure 131 mm[Hg] Stephanie Tico Other [employer] Other 02-20-2022 09:20-0400 Body height 170.18 cm Stephanie Tico Other [employer] Other 02-20-2022 09:20-0400 Body temperature 96.5 [degF] Stephanie Tico Other [employer] Other 02-20-2022 09:20-0400 Diastolic blood pressure 69 mm[Hg] Stephanie Tico Other [employer] Other 02-20-2022 09:20-0400 Respiratory rate 20 /min Stephanie Tico Other [employer] Other 02-20-2022 09:20-0400 SaO2% (BldA) [Mass fraction] 91 % Stephanie Tico Other [employer] Other 02-20-2022 09:20-0400 Systolic blood pressure 129 mm[Hg] Stephanie Lizamadir Other [employer] Other 02-06-2022 10:24-0400 Blood Pressure Location Elbert ARAUZ [facility] 02-06-2022 10:24-0400 Diastolic blood pressure 76 mm[Hg] Elbert ARAUZ [facility] 02-06-2022 10:24-0400 Heart rate 70 /min Elbert ARAUZ [facility] 02-06-2022 10:24-0400 Respiratory rate 16 /min Elbert ARAUZ [facility] [employer] 02-06-2022 10:24-0400 Systolic blood pressure 134 mm[Hg] Elbert ARAUZ [facility] Encounters Encounter Date Encounter Type Care Provider Facility Start: 01-29-2025 End: 01-29-2025 Bamboo flowsheet Rain Souza MD Work Phone: [facility] Start: 01-29-2025 End: 01-29-2025 Bamboo flowsheet Rain Souza MD Work Phone: [facility] Start: 01-29-2025 End: 01-29-2025 Clinisync Result Encounter Generic External Data Provider [facility] External Department Unsolicited Start: 01-29-2025 End: 01-29-2025 ambulatory RAIN SOUZA Not Available Start: 01-29-2025 End: 01-29-2025 Office outpatient visit 25 minutes Rain Souza MD Work Phone: [facility] Comment on above: Encounter for dietar y consultation (Primary Dx); Type 2 diabetes mellitus with hyperglycemia, with long-term current use of insulin (HCC); Vitamin D deficiency; Primary hypertension ; Insulin long-term use (HCC); Hyperlipemia, mixed ; Microalbuminuria; Class 3 severe obesity due to excess calories with serious comorbidity and body mass index (BMI) of 50.0 to 59.9 in adult ([facility]) Start: 01-26-2025 End: 01-26-2025 ambulatory MCKAYLA BLAS Not Available Start: 01-26-2025 End: 01-26-2025 Patient encounter procedure Mckayla Blas NP Work Phone: [facility] Comment on above: Encounter for subseq uent [...] Morbid (severe) obesity due to excess calories ([facility]) Start: 01-06-2025 End: 01-06-2025 ambulatory [facility] Start: 12-18-2024 End: 12-19-2024 Refill Mckayla Blas NP Work Phone: [facility] Comment on above: Hyperlipidemia, unsp ecified ; Tobacco user; Encounter for smoking cessation counseling Start: 12-09-2024 End: 12-09-2024 Bamboo flowsheet Mckayla Blas NP Work Phone: [facility] Start: 12-09-2024 End: 12-09-2024 Bamboo flowsheet Mckayla Blas SALES CONSULTING DIRECTOR Work Phone: [facility] Start: 12-09-2024 End: 12-09-2024 ambulatory MCKAYLA AICHHOLZ Not Available Start: 12-09-2024 End: 12-09-2024 Office outpatient visit 25 minutes Mckayla Blas SALES CONSULTING DIRECTOR Work Phone: [facility] Comment on above: Cellulitis of left l [...] Office outpatient visit 25 minutes Mckayla Blas SALES CONSULTING DIRECTOR Work Phone: [facility] Comment on above: Primary hypertension (CMS/HCC) (Primary [...] 10-21-2024 Refill Mckayla Blas NP Work Phone: [facility] Comment on above: Chronic obstructive pulmonary disease, unspecified Start: 10-08-2024 End: 10-08-2024 Clinisync Result Encounter Mckayla Blas NP Work Phone: [facility] External Department Unsolicited Start: 10-08-2024 End: 10-08-2024 Clinisync Result Encounter Mckayla Wan SCHAEFER Work Phone: [facility] External Department Unsolicited Start: 10-08-2024 End: 10-08-2024 Office outpatient visit 25 minutes Rain Souza MD Work Phone: [facility] Comment on above: Type 2 diabetes [...] 25 minutes Mckayla Blas NP Work Phone: [facility] Comment on above: Anxiety and depressi on [...] complication, with long-term current use of insulin ([facility]); Tobacco user; Mixed hyperlipidemia ([facility]); Gout, unspecified cause, unspecified chronicity, unspecified site; Vitamin deficiency; Gastro-esophageal reflux disease without esophagitis; Edema, unspecified; Edema; Hyperlipidemia, unspecified ([facility]); Encounter for smoking cessation counseling; Venous ulcer of right leg ([facility]); Antibiotic-induced yeast infection Start: 08-27-2024 End: 08-27-2024 ambulatory MCKAYLA BLAS Not Available Start: 08-27-2024 End: 08-27-2024 Clinisync Result Encounter Generic External Data Provider [facility] External Department Unsolicited Start: 08-27-2024 End: 08-27-2024 Clinisync Result Encounter Generic External Data Provider [facility] External Department Unsolicited Start: 08-08-2024 End: 08-08-2024 ambulatory [facility] Start: 07-17-2024 End: 07-17-2024 Refill Mckayla Blas NP Work Phone: [facility] Start: 07-14-2024 End: 07-14-2024 Office outpatient visit 25 minutes Mckayla Blas NP Work Phone: [facility] Comment on above: Primary hypertension ([facility]) (Primary Dx); Diabetic polyneuropathy associated with type 2 diabetes mellitus ([facility]); Pulmonary emphysema, unspecified emphysema type ([facility]); Critical limb ischemia of right lower extremity ([facility]); PAD (peripheral artery disease) ([facility]); Gastroesophageal reflux disease, unspecified whether esophagitis present; Bilateral lower extremity edema; Venous ulcer of right leg ([facility]); Type 2 diabetes mellitus with complication, with long-term current use of insulin ([facility]); Tobacco user; Encounter for smoking cessation counseling; Kidney stone; Adrenal mass 1 cm to 4 cm in diameter ([facility]); Radiculopathy, lumbar region; Non-seasonal allergic rhinitis, unspecified trigger; Type 2 diabetes mellitus with unspecified complications ([facility]) Start: 07-14-2024 End: 07-14-2024 ambulatory MCKAYLA AICHHOLZ Not Available Start: 07-05-2024 End: 07-07-2024 Refill Mckayla Aichholz SALES CONSULTING DIRECTOR Work Phone: [facility] Comment on above: Bilateral lower extr emity edema Start: 06-11-2024 ambulatory Elbert ARAUZ [place] ty:SHEA [place] Start: 06-11-2024 End: 06-11-2024 Patient encounter procedure Elbert ARAUZ [facility] [place] Start: 05-27-2024 End: 05-27-2024 Bambolalo flowsheet Rain Souza MD Work Phone: [facility] Start: 05-27-2024 End: 05-27-2024 Bamboo flowsheet Rain Souza MD Work Phone: [facility] Start: 05-27-2024 End: 05-27-2024 ambulatory RAIN SOUZA Not Available Start: 05-27-2024 End: 05-27-2024 Office outpatient visit 25 minutes Rain Souza MD Work Phone: [facility] Comment on above: Type 2 diabetes asiya itus with hyperglycemia, with long-term current use of insulin ([facility]) (Primary Dx); Encounter for dietary consultation; Vitamin D deficiency; Primary hypertension ([facility]); Insulin long-term use ([facility]); Hyperlipemia, mixed (CMS/HCC); Microalbuminuria; Class 3 [...] Unsolicited Start: 05-08-2024 ambulatory SARAH Wilkerson ty:[facility] [place] Start: 04-14-2024 End: 04-14-2024 Bamboo flowsheet Mckayla Aichholz SALES CONSULTING DIRECTOR Work Phone: [facility] Start: 04-14-2024 End: 04-14-2024 Bamboo flowsheet Mckayla Aichholz SALES CONSULTING DIRECTOR Work Phone: [facility] Start: 04-14-2024 End: 04-14-2024 Office outpatient visit 25 minutes Mckayla Harshadholz SALES CONSULTING DIRECTOR Work Phone: [facility] Comment on above: Primary hypertension [...] Start: 04-05-2024 End: 04-06-2024 Refill Mckayla Aichholz SALES CONSULTING DIRECTOR Work Phone: [facility] Comment on above: Hyperlipidemia, unsp ecified (CMS/HCC); Bilateral lower extremity edema Vitamin D deficiency , unspecified Start: 01-17-2024 Patient encounter procedure Rain Souaz MD Work Phone: [facility] Start: 08-17-2023 Refill Mckayla Aichholz SALES CONSULTING DIRECTOR Work Phone: [facility] Comment on above: Vaginal yeast infect ion (Primary Dx) Start: 08-14-2023 Refill Mckayla Aichholz SALES CONSULTING DIRECTOR Work Phone: [facility] Comment on above: Type 2 diabetes asiya [...] encounter procedure SARAH VEGA [facility] Start: 10-05-2022 End: 10-05-2022 ambulatory MARIANO [...] 03-08-2022 End: 03-08-2022 ambulatory Stephanie Tico Other [employer] Other Start: 03-08-2022 Office outpatient vi sit 15 minutes Stephanie Tico [facility] Start: 03-03-2022 End: 03-04-2022 ambulatory DIRECTOR HOSPICE OPERATIONS MCKAYLA BLAS Facility:[facility] Start: 02-20-2022 End: 02-20-2022 ambulatory Stephanie Tico Other [employer] Other Start: 02-20-2022 Office outpatient ne w 45 minutes Stephanie Tico [facility] Start: 02-06-2022 End: 02-06-2022 Patient encounter procedure Elbert ARAUZ [facility] Start: 01-19-2022 End: 01-20-2022 ambulatory GIL VALENZUELA . Facility:[facility] Start: 12-24-2021 End: 12-24-2021 ambulatory OLE ASHLEY Facility: Start: 08-26-2020 End: 09-10-2020 Patient encounter procedure MARY GABINOLOS Facility:[facility] Start: 10-30-2019 End: 10-30-2019 Emergency department patient visit [facility] Start: 10-30-2019 End: 10-30-2019 Emergency department patient visit [facility] Start: 11-02-2016 Preoperative state Stephanie Tico Other [employer] Other Procedures Date Procedure Procedure Detail Performing [...] procedure 02/01/2026 6:00 PM EDT Office Visit [facility] [address] [place] [address] Mckayla Blas NP [address] [place] [address] [facility] Start: 01-26-2026 Medicare Annual Wellness (AWV) Medicare Annual Wellness (AWV) [facility] Start: 10-08-2025 Urine screening for protein Diabetes: Urine Protein Screening [facility] Start: 08-03-2025 Screening for malignant neoplasm of colon [facility] Start: 07-14-2025 Glaucoma screening Diabetes: R etinopathy Screening [facility] Start: 05-28-2025 End: 05-28-2025 Patient encounter procedure 05/28/2025 10:30 AM EST Office Visit [facility] [address] [place] [address] Rain Souza MD [address] [place] [address] [facility] Start: 05-13-2025 Glaucoma screening Diabetes: R etinopathy Screening [facility] Start: 05-01-2025 Hemoglobin A1c measurement Diabetes: Hemoglobin A1C [facility] Start: 04-29-2025 End: 04-29-2025 Patient encounter procedure 04/29/2025 6:00 PM EDT Office Visit [facility] [address] [place] [id number] Mckayla Blas, SALES CONSULTING DIRECTOR [address] [place] [phone] [facility] Start: 03-09-[address] [facility] Start: 01-28-2025 End: 01-28-2025 Patient encounter procedure 01/28/2025 10:50 AM EDT Office Visit [facility] [address] [place] [address] Rain Souza MD [address] [place] [address] [facility] Start: 01-26-2025 End: 01-26-2025 Patient encounter procedure 01/26/2025 6:00 PM EDT Office Visit [facility] [address] [place] [phone] Mckayla Blas, SALES CONSULTING DIRECTOR [address] [place] [phone] [facility] Start: 01-16-2025 Medicare Annual Wellness (AWV) Medicare Annual Wellness (AWV) [facility] Start: 01-07-2025 Hemoglobin A1c measurement Diabetes: Hemoglobin A1C [facility] Start: 12-15-2024 End: 12-27-2025 MG Breast - bilateral Screening Bilateral screening mammogram Imaging Routine Encounter for screening mammogram for malignant neoplasm of breast Expected: 12/15/2024 (Approximate), Expires: 12/27/2025 [facility] Work Phone: Comment on above: Expected: 12/15/2024 (Approximate), Expires: 12/27/2025 Start: 12-13-2024 Screening for malignant neoplasm of breast Mammogram [facility] Start: 11-11-2024 Urine screening for protein Diabetes: Urine Protein Screening [facility] Start: 10-27-2024 End: 10-27-2024 Patient encounter procedure 10/27/2024 2:00 PM EDT Office Visit [facility] [address] [place] [phone] Mckayla Blas, SILVANO [address] [place] [id number] [facility] Start: 10-08-2024 End: 10-08-2024 Patient encounter procedure 10/08/2024 11:20 AM EDT Office Visit [facility] [address] [place] [address] Rain Souza MD [address] [place] [address] [facility] Start: 08-27-2024 End: 08-27-2024 Patient encounter procedure 08/27/2024 5:30 PM EST Office Visit [facility] [address] [place] [phone] Mckayla Blas, SILVANO [address] [place] [phone] [facility] Start: 08-27-2024 End: 08-27-2025 25-hydroxyvitamin D3 [Mass/volume] in Serum or Plasma Vitamin D 25 hydroxy Lab Routine Vitamin deficiency Expected: 08/27/2024 (Approximate), Expires: 08/27/2025 [facility] Comment on above: Expected: 08/27/2024 (Approximate), Expires: 08/27/2025 Start: 08-27-2024 Hemoglobin A1c measurement Diabetes: Hemoglobin A1C [facility] Start: 08-27-2024 End: 08-27-2025 Hepatic function 2000 panel - Serum or Plasma Hepatic function panel Lab Routine Hyperlipidemia, unspecified (CMS/HCC) Expected: 08/27/2024 (Approximate), Expires: 08/27/2025 [facility] Comment on above: Expected: 08/27/2024 (Approximate), Expires: 08/27/2025 Start: 08-27-2024 End: 08-27-2025 Lipid 1996 panel - Serum or Plasma Lipid panel Lab Routine Mixed hyperlipidemia (CMS/HCC) Expected: 08/27/2024 (Approximate), Expires: 08/27/2025 [facility] Work Phone: Comment on above: Expected: 08/27/2024 (Approximate), Expires: 08/27/2025 Start: 08-27-2024 End: 08-27-2025 Microalbumin/Creatini ne panel in random Urine Microalbumin / creatinine, urine ratio Lab Routine Primary hypertension (CMS/HCC) Type 2 diabetes mellitus with complication, with long-term current use of insulin ([facility]/HCC) Expected: 08/27/2024 (Approximate), Expires: 08/27/2025 [facility] Comment on above: Expected: 08/27/2024 (Approximate), Expires: 08/27/2025 Start: 08-27-2024 End: 08-27-2025 Urate [Mass/volume] in Serum or Plasma Uric acid Lab Routine Gout, unspecified cause, unspecified chronicity, unspecified site Expected: 08/27/2024 (Approximate), Expires: 08/27/2025 [facility] Comment on above: Expected: 08/27/2024 (Approximate), Expires: 08/27/2025 Start: 08-27-2024 End: 08-27-2025 Urinalysis complete panel - Urine Urinalysis with reflex microscopic (clean catch) Lab Routine Primary hypertension ([facility]) Type 2 diabetes mellitus with complication, with long-term current use of insulin ([facility]) Tobacco user Gout, unspecified cause, unspecified chronicity, unspecified site Expected: 08/27/2024 (Approximate), Expires: 08/27/2025 [facility] Comment on above: Expected: 08/27/2024 (Approximate), Expires: 08/27/2025 Start: 08-26-2024 End: 08-26-2024 Patient encounter procedure 08/26/2024 10:30 AM EST Office Visit [facility] [address] [place] [address] Rain Souza MD [address] [place] [address] [facility] Start: 07-14-2024 End: 07-14-2024 Patient encounter procedure 07/14/2024 6:30 PM EST Office Visit [facility] [address] [place] [address] Mckayla Blas NP [address] [place] [address] [facility] Start: 07-14-2024 End: 07-14-2024 Patient encounter procedure 07/14/2024 10:10 AM EST Office Visit [facility] [address] [place] [address] Rain Souza MD [address] [place] [address] [facility] Start: 06-06-2024 Influenza vaccination Influenza Vacc ine (#1) [facility] Comment on above: Postponed from 03/09 (Patient Refused) Start: 05-27-2024 End: 05-27-2024 Patient encounter procedure 05/27/2024 9:50 AM EST Office Visit [facility] [address] [place] [address] Rain Souza MD [address] [place] [address] [facility] Start: 05-17-2024 Hemoglobin A1c measurement Diabetes: Hemoglobin A1C [facility] Start: 05-15-2024 End: 05-15-2024 Chart abstracting 05/15/2024 Abstract [facility] [address] [place] [address] Rain Souza MD [address] [place] [address] [facility] Start: 05-15-2024 End: 05-15-2024 Patient encounter procedure 05/15/2024 11:20 AM EST Office Visit [facility] [address] [place] [address] Rain Souza MD [address] [place] [address] [facility] Start: 04-17-2024 End: 04-17-2024 Patient encounter procedure 04/17/2024 3:40 PM EDT Office Visit [facility] [address] [place] [address] Mckayla Blas NP [address] [place] [address] [facility] Start: 04-14-2024 End: 04-14-2024 Patient encounter procedure 04/14/2024 11:00 AM EDT Office Visit [facility] [address] [place] [address] Mckayla Blas NP [address] [place] [phone] Arrived [facility] Comment on above: Arrived Start: 03-09-2024 Influenza [...] [facility] [address] [place] [address] Mckayla Blas NP [address] [place] [address] [facility] Start: 08-09-2023 Hemoglobin A1c measurement Diabetes: Hemoglobin A1C [facility] Start: 05-27-2021 Glaucoma screening Diabetes: R etinopathy Screening [facility] Start: 03-09-2020 Influenza vaccination Flu vacc ine (Season Ended) [place], [place] Start: 10-07-2018 Screening for malignant neoplasm of cervix [facility] Start: 2010 Lipid panel Lipid screen [place], [place] Start: 2000 Screening for malignant neoplasm of cervix HPV/Cotest [facility] Start: 1991 Screening for malignant neoplasm of cervix Cervical cancer screen [place], [place] Start: 1989 DTaP/Tdap/Td vaccine (1 - Tdap) DTaP/Tdap/Td vaccine ( - Tdap) [place], [place] Start: 1985 HIV screening HIV screen [place], [place] Start: 1970 Medicare Annual Wellness (AWV) Medicare Annual Wellness (AWV) [facility] Start: 1970 Screening for malignant neoplasm of colon [facility] BLOOD CULTURE 1 BLOOD CULTURE 1 Lab Routine 12/04/2024 4:44 PM EDT [facility] BLOOD CULTURE 2 BLOOD CULTURE 2 Lab Routine 12/04/2024 5:28 PM EDT [facility] Immunizations Immunization Date Immunization Notes Care Provider Judie lucas 05-18-2023 influenza, injectabl e, quadrivalent, contains preservative Mckayla Blas SALES CONSULTING DIRECTOR Work Phone: [facility] 05-18-2023 influenza virus vacc ine, unspecified formulation Rain Souza MD Work Phone: [facility] 07-19-2021 SARS-CoV-2 (COVID-19 ) mRNA BNT-162b2 vax [employer] [facility] 10-28-2020 SARS-CoV-2 (COVID-19 ) mRNA BNT-162b2 vax [employer] [facility] 10-08-2020 SARS-CoV-2 (COVID-19 ) mRNA BNT-162b2 vax [employer] [facility] 04-16-2017 influenza virus vacc ine, H5N1, A/ (national stockpile) Mckayla Blas SALES CONSULTING DIRECTOR Work Phone: [facility] 04-16-2017 influenza virus vacc ine, unspecified formulation Rain Souza MD Work Phone: [facility] 04-16-2017 influenza, unspecifi ed formulation Elbert ARAUZ [facility] 04-16-2017 pneumococcal polysaccharide vaccine, 23 valent Rain Souza MD Work Phone: [facility] 05-10-2016 influenza virus vacc ine, H5N1, A/ (national stockpile) Mckayla Blas SALES CONSULTING DIRECTOR Work Phone: [facility] 05-10-2016 influenza virus vacc ine, unspecified formulation Rain Souza MD Work Phone: [facility] 05-10-2016 influenza, unspecifi ed formulation Elbert ARAUZ [facility] 05-02-2013 influenza virus vacc ine, whole virus Rain Souza MD Work Phone: [facility] 05-02-2013 influenza, injectabl e, quadrivalent, contains preservative Mckayla Blas SALES CONSULTING DIRECTOR Work Phone: [facility] 05-02-2013 influenza, whole Elbert BARBARA ERS [facility] 01-29-1998 measles, mumps and rubella virus vaccine Rain Souza MD Work Phone: [facility] Payers Date Payer Category Payer Unknown [id number] 2023 Medicare (Managed Care) 1.2. [id number] 2023 Private Health Insurance [facility] [id number] 2023-Present [address] [address] [place] [address] [id number] 2023 Medicare [id number] 2018 Medicaid MEDICAID [facility] [id number] 2018-Present [phone] [address] [place] [address] Medicaid [id number] 2013 Medicare [id number]. [id number] 1970 Unknown [id number] 2.16.840.1.432651.3.579.2. 647 1970 Unknown [id number] 2.16.840.1.417786.3.579.2. 593 1970 Unknown [id number] 2.16.840.1.870189.3.579.2. 593 1970 Unknown [id number] 2.16.840.1.146697.3.579.2. 593 1970 Unknown [id number] 2.16.840.1.308151.3.579.2. 593 1970 Unknown [id number] 2.16.840.1.763414.3.579.2. 593 1970 Unknown [id number] 2.16.840.1.471931.3.579.2. 593 1970 Unknown [id number] 2.16.840.1.253747.3.579.2. 593 1970 Unknown [id number] 2.16.840.1.899647.3.579.2. 593 1970 Unknown [id number] 2.16.840.1.149008.3.579.2. 593 1970 Unknown [id number] 2.16.840.1.608797.3.579.2. 593 1970 Unknown [id number] 2.16.840.1.400886.3.579.2. 593 1970 Unknown [id number] 2.16.840.1.435580.3.579.2. 593 1970 Unknown [id number] 2.16.840.1.333938.3.579.2. 593 1970 Unknown [id number] 2.16.840.1.362992.3.579.2. 593 1970 Unknown [id number] 2.16.840.1.495668.3.579.2. 593 1970 Unknown [id number] 2.16.840.1.108236.3.579.2. 593 1970 Unknown [id number] 2.16.840.1.924592.3.579.2. 593 1970 Unknown [id number] 2.16.840.1.857545.3.579.2. 593 1970 Unknown [id number] 2.16.840.1.479017.3.579.2. 593 1970 Unknown [id number] 2.16.840.1.706232.3.579.2. 593 1970 Unknown [id number] 2.16.840.1.790586.3.579.2. 593 1970 Unknown [id number] 2.16.840.1.804443.3.579.2. 593 1970 Unknown [id number] 2.16840.1.318668.3.579.2. 727 1970 Unknown [id number] 2.16.840.1.087809.3.579.2. 727 1970 Unknown [id number] 2.16.840.1.991568.3.579.2. 1259 1970 Unknown [id number] 2.16.840.1.876259.3.579.2. 1259 1970 Unknown [id number] 2.16.840.1.045698.3.579.2. 1259 1970 Unknown [id number] 2.16.840.1.515044.3.579.2. 1259 1970 Unknown [id number] 2.16.840.1.878004.3.579.2. 1259 1970 Unknown [id number] 2.16.840.1.671310.3.579.2. 1259 1970 Unknown [id number] 2.16.840.1.349010.3.579.2. 1259 1970 Unknown [id number] 2.16.840.1.898033.3.579.2. 1259 1970 Unknown [id number] 2.16.840.1.294949.3.579.2. 1259 1959 Medicaid [id number] 1959 Private Health Insurance [id number] 1959 Unknown [id number] 2.16.840.1.637466.19 Social History Date Type Detail Facility Start: 02-17-2014 End: 01-29-2025 Tobacco smoking status NHIS Current every day smoker [place], [place] Start: 02-17-1994 History of tobacco use Cigarette Smo ker [place], [place] Start: 02-17-2014 End: 08-26-2024 Cigarettes smoked current (pack per day) - Reported [place], [place] Start: 02-17-2014 Alcohol intake Current drinke r of alcohol (finding) [place] Start: 02-17-2014 Alcohol Comment Rare [place], [place] Start: 1970 Sex Assigned At Not on file [place] Exposure to SARS-CoV -2 (event) Unable to assess [place], [place] Start: 02-06-2022 Tobacco smoking status Smoker (findi ng) [facility] Start: 07-10-2023 End: 08-26-2024 Sex Assigned At Female [facility] Start: 11-15-2022 End: 06-11-2024 Tobacco smoking status Heavy tobacco smoker (finding) [facility] Start: 07-10-2023 End: 01-29-2025 Tobacco use and exposure Smokeless tobacco non-user [facility] Start: 07-10-2023 End: 01-29-2025 Alcohol intake Lifetime non-drinker (finding) [facility] Within the last year , have you been afraid of your partner or ex-partner? No [facility] Do you belong to any clubs or organizations such as yazidi groups, unions, fraternal or athletic groups, or [...] Equipment Origin al Text Equipment Identifier Dates [id number] Start: 01-18-2024 USE TO TEST BLOO D SUGAR 4 TIMES DAILY [id number] Start: 07-07-2024 Functional Status Date Assessment Result Facility 01-26-2025 Patient Health Quest ionnaire 2 item (PHQ-2) [Reported] [facility] 01-26-2025 Trouble falling or s taying asleep, or sleeping too much Not at all 01/26/2025 4:13 PM EDT Mychart, Generic Not at all [facility] 01-26-2025 Feeling tired or hav ing little energy Not at all 01/26/2025 4:13 PM EDT Mychart, Generic Not at all [facility] 01-26-2025 Poor appetite or overeating Not at all 01/26/2025 4:13 PM EDT Mychart, Generic Not at all [facility] 01-26-2025 Feeling bad about yourself-or that you are a failure or have let yourself or your family down Not at all 01/26/2025 4:13 PM EDT Mychart, Generic Not at all [facility] 01-26-2025 Trouble concentratin g on things, such as reading the newspaper or watching television Not at all 01/26/2025 4:13 PM EDT Mychart, Generic Not at all [facility] 01-26-2025 Moving or speaking s o slowly that other people could have noticed. Or the opposite - being so fidgety or restless that you have been moving around a lot more than usual Not at all 01/26/2025 4:13 PM EDT Mychart, Generic Not at all [facility] 01-26-2025 Thoughts that you wo uld be better off , or of hurting yourself in some way Not at all 01/26/2025 4:13 PM EDT Mychart, Generic Not at all [facility] 06-11-2024 Functional Status N/A [facility] 11-15-2022 Functional Status N/A [facility] 02-06-2022 Functional Status N/A [facility] Clinical Notes 01-19-2022 to 02-04-2025 Rain [...] Follow-up as planned in 6 months. Thanks! [facility] 01-29-2025 History of Present illness Narrative [...] 25 mg, Oral, 2 times daily HYDROcodone-acetaminophen ([place]) 5-325 MG tablet 1 tablet, 3 times [...] Angiomyolipoma Anxiety and depression 07/10/2023 Asthma ([facility]) 07/10/2023 Body mass index (BMI) 50.0-59.9, adult ([facility]) Cellulitis of left lower extremity Cervical cancer ([facility]) 09/17/2023 Chronic pain of both knees 09/17/2023 COPD (chronic obstructive pulmonary disease) ([facility]) 07/10/2023 COPD exacerbation ([facility]) 09/17/2023 Decreased functional mobility 09/17/2023 Diabetic neuropathy ([facility]) 07/10/2023 Dietary counseling and surveillance Edema 07/10/2023 Elevated sed rate Elevated WBC count Essential (primary) hypertension GERD (gastroesophageal reflux disease) 09/17/2023 Hyperlipidemia 09/17/2023 Hypertension 07/10/2023 Insomnia 09/17/2023 superintendent terminal (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 ([facility]) Lower extremity edema 09/17/2023 Mixed hyperlipidemia Morbid (severe) obesity due to excess calories ([facility]) Obstructive sleep apnea 07/10/2023 PAD (peripheral artery disease) 09/17/2023 Pancreatitis ([facility]) 09/17/2023 Pneumonia 09/17/2023 Proteinuria, unspecified Pulmonary hypertension ([facility]) 09/17/2023 Radiculopathy, lumbar region 09/17/2023 Tobacco user 09/17/2023 Type 2 diabetes mellitus with complication, with long-term current use of insulin ([facility]) 07/10/2023 Unilateral primary osteoarthritis, right hip [...] (BMI) of 50.0 to 59.9 in adult ([facility]) Diet and exercise reviewed with the patient Follow up in about 4 months (around 06/01/2025). 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 Associated Problem(s): COPD (chronic [...] 25 mg, Oral, 2 times daily HYDROcodone-acetaminophen ([place]) 5-325 MG tablet 1 tablet, 3 times [...] of left lower extremity Cervical cancer ([facility]) 09/17/2023 Chronic pain of both knees 09/17/2023 COPD (chronic obstructive pulmonary disease) ([facility]) 07/10/2023 COPD exacerbation ([facility]) 09/17/2023 Decreased functional mobility 09/17/2023 Diabetic neuropathy ([facility]) 07/10/2023 Dietary counseling and surveillance Edema 07/10/2023 Elevated sed rate Elevated WBC count Essential (primary) hypertension GERD (gastroesophageal reflux disease) 09/17/2023 Hyperlipidemia 09/17/2023 Hypertension 07/10/2023 Insomnia 09/17/2023 retirement (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 ([facility]) Lower extremity edema 09/17/2023 Mixed hyperlipidemia Morbid (severe) obesity due to excess calories ([facility]) Obstructive sleep apnea 07/10/2023 PAD (peripheral artery disease) 09/17/2023 Pancreatitis ([facility]) 09/17/2023 Pneumonia 09/17/2023 Proteinuria, unspecified Pulmonary hypertension ([facility]) 09/17/2023 Radiculopathy, lumbar region 09/17/2023 Tobacco user 09/17/2023 Type 2 diabetes mellitus with complication, with long-term current use of insulin ([facility]) 07/10/2023 Unilateral primary osteoarthritis, right hip [...] 7.4%!!! COPD (chronic obstructive pulmonary disease) ([facility]) Follow[facility] with 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 Hypertension Please check blood [...] (Elavil) 25 MG tablet Pulmonary hypertension ([facility]) Has seen [facility] Cardiology Hyperlipidemia On statin therapy Check [...] Morbid (severe) obesity due to excess calories ([facility]) Discussed with patient their BMI (actual, [...] Associated Problem(s): Pulmonary hypertension (HCC) Has seen [facility] Cardiology Associated Problem(s): Hypertension Please check [...] a yearly basis documented in this encounter [facility] 01-26-2025 Instructions Mckayla Blas NP - 01/26/2025 6:00 PM EDT Please call the [facility] to schedule your mammogram: [phone]- ext [phone] documented in this encounter [facility] 01-06-2025 Note Cardiovascular Medic [facility] SUBJECTIVE Chief Complaint Patient presents with [...] syndrome (CMS/HCC) Decreased functional mobility Diabetic neuropathy ([facility]/HCC) Easy bruising GERD (gastroesophageal reflux disease) Gout [...] complication, with long-term current use of insulin ([facility]/HCC) Unilateral primary osteoarthritis, right hip Vaginal yeast infection Venous insufficiency Bad odor of urine Critical limb ischemia of right lower extremity ([facility]/HCC) Hyperpigmentation of skin 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 2 diabetes mellitus ([facility]/HCC) Myelolipoma of adrenal gland Venous ulcer of right leg ([facility]/HCC) Chronic diastolic heart failure ([facility]) Antibiotic-induced yeast infection Cellulitis of left lower extremity Cigarette nicotine dependence without complication Fever 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 ([facility]) retirement current use of inhaled steroid Vitamin D deficiency, unspecified Vitamin deficiency Past Medical History: Diagnosis Date COPD (chronic obstructive pulmonary disease) ([facility]/HCC) Diabetes mellitus ([facility]) Hyperlipidemia Hypertension Sleep apnea Family History [...] , Rfl: ergocalciferol (Vitamin D-2) 1.25 MG (35492 Units) capsule, Take 1.25 mg by mouth., [...] and at bedtime., Disp: , Rfl: HYDROcodone-acetaminophen ([place]) 5-325 mg tablet, TAKE 1 TABLET BY MOUTH THREE TIMES A DAY NEEDED FOR PAIN MUST LAST 30 DAYS, Disp: , Rfl: insulin aspart (NovoLOG) 100 unit/mL (3 mL) injection pen, Novolog Flexpen U-100 Insulin aspart 100 unit/mL (3 mL) subcutaneous, Disp: , Rfl: insulin glargine (Lantus Solostar U-100 Insulin) 100 unit/mL (3 mL) injection pen (more content not included)... [facility] 01-06-2025 Note Patient is here toda [...] weight gain. Cardiovascular: Positive for leg swelling. [facility] 12-09-2024 History of Present illness Narrative [...] 25 mg, Oral, 2 times daily HYDROcodone-acetaminophen ([place]) 5-325 MG tablet 1 tablet, 3 times [...] CT Albuminuria 09/17/2023 Angiomyolipoma Anxiety and depression ([facility]) 07/10/2023 Asthma 07/10/2023 Body mass index (BMI) 50.0-59.9, adult ([facility]) Cellulitis of left lower extremity Cervical cancer ([facility]) 09/17/2023 Chronic pain of both knees 09/17/2023 COPD (chronic obstructive pulmonary disease) ([facility]) 07/10/2023 COPD exacerbation ([facility]) 09/17/2023 Decreased functional mobility 09/17/2023 Diabetic neuropathy ([facility]) 07/10/2023 Dietary counseling and surveillance Edema 07/10/2023 Elevated sed rate Elevated WBC count Essential (primary) hypertension ([facility]) GERD (gastroesophageal reflux disease) 09/17/2023 Hyperlipidemia ([facility]) 09/17/2023 Hypertension ([facility]) 07/10/2023 Insomnia 09/17/2023 retirement (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 ([facility]) Lower extremity edema 09/17/2023 Mixed hyperlipidemia ([facility]) Morbid (severe) obesity due to excess calories ([facility]) Obstructive sleep apnea 07/10/2023 PAD (peripheral artery disease) ([facility]) 09/17/2023 Pancreatitis 09/17/2023 Pneumonia 09/17/2023 Proteinuria, unspecified Pulmonary hypertension ([facility] Problem List Items Addressed This Visit Hypertension ([facility]) Please check blood pressure daily and record DASH diet Limit caffeine Take medication as directed Contact office if chest pain, pressure, dizziness, shortness of breath, swelling legs Recommend slow position changes Current meds: hydralazine, lisinopril, Type 2 diabetes mellitus with complication, with long-term current use of insulin ([facility]) Check blood sugars daily, notify if [...] secondary to her steroids Anxiety and depression ([facility]) Current meds: elavil, duloxtine, COPD exacerbation ([facility]) Recent ER visit for unresponsiveness , found to have fever and elevated WBC Sent home with steroids and atb Breathing is better and she feels back to her normal baseline Does have home O2, she is not wearing this today Pulmonary hypertension ([facility]) Has seen [facility] Cardiology Morbid (severe) obesity due to excess calories ([facility]) Discussed with patient their BMI (actual, [...] Finish atb's Associated Problem(s): Anxiety and depression ([facility]) Current meds: elavil, duloxtine, Associated Problem(s): Type 2 diabetes mellitus with complication, with long-term current use of insulin ([facility]) Check blood sugars daily, notify if [...] Associated Problem(s): Pulmonary hypertension (CMS/HCC) Has seen [facility] Cardiology Associated Problem(s): Hypertension (CMS/HCC) Please [...] wearing this today documented in this encounter [facility] 12-09-2024 Instructions Mckayla Blas NP - 12/09/2024 10:00 AM EDT Keep appt with wound care today Keep fu with me, sooner if needed documented in this encounter [facility] 10-27-2024 History of Present illness Narrative [...] 25 mg, Oral, 2 times daily HYDROcodone-acetaminophen ([place]) 5-325 MG tablet 1 tablet, 3 times [facility] 07/10/2023 Asthma 07/10/2023 Body mass index (BMI) [...] rate Elevated WBC count Essential (primary) hypertension ([facility] GERD (gastroesophageal reflux disease) 09/17/2023 Hyperlipidemia ([facility]) 09/17/2023 Hypertension ([facility]) 07/10/2023 Insomnia 09/17/2023 retirement (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 ([facility] Lower extremity edema 09/17/2023 Mixed hyperlipidemia ([facility]) Morbid (severe) obesity due to excess calories ([facility]) Obstructive sleep apnea 07/10/2023 PAD (peripheral artery disease) ([facility]) 09/17/2023 Pancreatitis 09/17/2023 Pneumonia 09/17/2023 Proteinuria, unspecified Pulmonary hypertension ([facility] complication, with long-term current use of insulin ([facility]) Check blood sugars daily, notify if [...] 81 MG chewable tablet Anxiety and depression ([facility]) Current meds: elavil, duloxtine, Relevant Medications DULoxetine (Cymbalta) [address] capsule Bilateral lower extremity edema Limit sodium , elevate legs, furosemide Relevant Medications furosemide (Lasix) 20 MG tablet potassium chloride ER (Micro-K) 10 MEQ ER capsule furosemide (Lasix) 40 MG tablet Insomnia Relevant Medications amitriptyline (Elavil) 25 MG tablet PAD (peripheral artery disease) ([facility]) Asa, statin Quit smoking BP and [...] MG tablet Venous ulcer of right leg ([facility]) Continue with wound care and management of wound, currently they are using dakins Wound is improving Morbid (severe) obesity due to excess calories ([facility]) Discussed with patient their BMI (actual, [...] for DM Chronic diastolic heart failure ([facility]) Current meds; asa, farxiga, lasix, hydralazine, lisinopril, Follows with cardilogy Reviewed 08/02 notes Cigarette nicotine dependence without complication Is currently using chantix, and is doing well, less desire, smoking less Vitamin D deficiency, unspecified Relevant Medications ergocalciferol (Vitamin D2) 1.25 MG (05018 UT) capsule Gastro-esophageal reflux disease without esophagitis Relevant Medications omeprazole (PriLOSEC) [address] capsule Other Visit Diagnoses Type 2 diabetes mellitus with unspecified complications Relevant Medications dapagliflozin (Farxiga) 10 MG Associated Problem(s): Cigarette nicotine dependence without complication Is currently using chantix, and is doing well, less desire, smoking less Associated Problem(s): Anxiety and depression ([facility]) Current meds: elavil, duloxtine, Associated Problem(s): Type 2 diabetes mellitus with complication, with long-term current use of insulin ([facility]) Check blood sugars daily, notify if [...] A1c is 7.4%!!! documented in this encounter [facility] 10-27-2024 Instructions Mckayla Blas NP - 10/27/2024 2:00 PM EDT No dose changes in meds You will be due for mammogram I will send order to [facility], they should call you to schedule If no call, please call [phone] ext [phone] documented in this encounter [facility] 10-08-2024 History of Present illness Narrative [...] or chew. ergocalciferol (Vitamin D2) 1.25 MG (74832 UT) capsule TAKE 1 CAPSULE BY MOUTH [...] 25 mg, Oral, 2 times daily HYDROcodone-acetaminophen ([place]) 5-325 MG tablet 1 tablet, 3 times [...] CT Albuminuria 09/17/2023 Angiomyolipoma Anxiety and depression ([facility]) 07/10/2023 Asthma ([facility]) 07/10/2023 Body mass index (BMI) 50.0-59.9, adult ([facility]) Cellulitis of left lower extremity Cervical cancer ([facility]) 09/17/2023 Chronic pain of both knees 09/17/2023 COPD (chronic obstructive pulmonary disease) ([facility]) 07/10/2023 COPD exacerbation ([facility] 09/17/2023 Decreased functional mobility 09/17/2023 Diabetic neuropathy ([facility]) 07/10/2023 Dietary counseling and surveillance Edema 07/10/2023 Elevated sed rate Elevated WBC count Essential (primary) hypertension ([facility]) GERD (gastroesophageal reflux disease) 09/17/2023 Hyperlipidemia ([facility]) 09/17/2023 Hypertension ([facility]) 07/10/2023 Insomnia 09/17/2023 retirement (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 ([facility]) Lower extremity edema 09/17/2023 Mixed hyperlipidemia ([facility]) Morbid (severe) obesity due to excess calories ([facility]) Obstructive sleep apnea 07/10/2023 PAD (peripheral artery disease) ([facility]) 09/17/2023 Pancreatitis 09/17/2023 Pneumonia 09/17/2023 Proteinuria, unspecified Pulmonary hypertension ([facility] hyperglycemia, with long-term current use of insulin ([facility]) - POCT glucose manually resulted - [...] months (around 02/07/2025). documented in this encounter [facility] 08-27-2024 History of Present illness Narrative [...] or chew. ergocalciferol (Vitamin D2) 1.25 MG (41216 UT) capsule TAKE 1 CAPSULE BY MOUTH [...] 25 mg, Oral, 2 times daily HYDROcodone-acetaminophen (Day[place]) 5-325 MG tablet 1 tablet, 3 times [...] Cellulitis of left lower extremity Cervical cancer ([facility]) 09/17/2023 Chronic pain of both knees 09/17/2023 COPD (chronic obstructive pulmonary disease) ([facility] 07/10/2023 COPD exacerbation ([facility] 09/17/2023 Decreased functional mobility 09/17/2023 Diabetic neuropathy ([facility] 07/10/2023 Dietary counseling and surveillance Edema 07/10/2023 Elevated sed rate Elevated WBC count Essential (primary) hypertension ([facility]) GERD (gastroesophageal reflux disease) 09/17/2023 Hyperlipidemia ([facility]) 09/17/2023 Hypertension ([facility]) 07/10/2023 Insomnia 09/17/2023 retirement (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 ([facility] Lower extremity edema 09/17/2023 Mixed hyperlipidemia ([facility]) Morbid (severe) obesity due to excess calories ([facility] Obstructive sleep apnea 07/10/2023 PAD (peripheral artery disease) ([facility]) 09/17/2023 Pancreatitis 09/17/2023 Pneumonia 09/17/2023 Proteinuria, unspecified Pulmonary hypertension ([facility]) 09/17/2023 Radiculopathy, lumbar region 09/17/2023 Tobacco user 09/17/2023 Type 2 diabetes mellitus with complication, with long-term current use of insulin ([facility]) 07/10/2023 Unilateral primary osteoarthritis, right hip [...] List Items Addressed This Visit Diabetic neuropathy ([facility]) Continue with cintia hudson mgmt is prescribing OARRS reviewed Fu in 3 months Goal: tighter glucose control Hypertension ([facility]) Please check blood pressure daily and [...] complication, with long-term current use of insulin ([facility]) Check blood sugars daily, notify if [...] / creatinine, urine ratio Anxiety and depression ([facility]) - Primary Current meds: elavil, duloxtine, [...] PPI Malignant neoplasm of cervix uteri, unspecified ([facility]) Had in the past, had hysterectomy [...] Associated Problem(s): Chronic diastolic heart failure ([facility]) Current meds; asa, farxiga, lasix, hydralazine, lisinopril, Follows with cardilogy Reviewed 08/02 notes Associated Problem(s): COPD (chronic obstructive pulmonary disease) ([facility]) Follows with verena Needs smoking cessation Current meds: duoneb, albuterol, daliresp, Associated Problem(s): Asthma ([facility]) Current meds: albuterol, 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, 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 Associated Problem(s): Obstructive sleep [...] tighter glucose control documented in this encounter [facility] 08-08-2024 Note OR Cardiology - [facility] Subjective Mitzi Macias is a 53 [...] Diagnosis Date COPD (chronic obstructive pulmonary disease) ([facility]) Diabetes mellitus ([facility]) Hyperlipidemia Hypertension Sleep apnea Past Surgical [...] , Rfl: ergocalciferol (Vitamin D-2) 1.25 MG (64514 Units) capsule, Take 1.25 mg by mouth., [...] and at bedtime., Disp: , Rfl: HYDROcodone-acetaminophen (Day[place]) 5-325 mg tablet, TAKE 1 TABLET BY [...] TWICE DAILY, Disp: (more content not included)... [facility] 07-14-2024 History of Present illness Narrative [...] or chew. ergocalciferol (Vitamin D2) 1.25 MG (67805 UT) capsule TAKE 1 CAPSULE BY MOUTH ONE TIME PER WEEK furosemide (LASIX) 40 mg, Oral, Daily furosemide (LASIX) 20 mg, Oral, Daily PRN, Take in the afternoon as needed hydrALAZINE (APRESOLINE) 25 mg, Oral, 2 times daily HYDROcodone-acetaminophen (Day[place]) 5-325 MG tablet 1 tablet, 3 times [...] rate Elevated WBC count Essential (primary) hypertension ([facility]) GERD (gastroesophageal reflux disease) 09/17/2023 Hyperlipidemia ([facility]) 09/17/2023 Hypertension ([facility]) 07/10/2023 Insomnia 09/17/2023 superintendent 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 (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 ([facility] Lower extremity edema 09/17/2023 Mixed hyperlipidemia ([facility]) Morbid (severe) obesity due to excess calories ([facility]) Obstructive sleep apnea 07/10/2023 PAD (peripheral artery disease) ([facility]) 09/17/2023 Pancreatitis 09/17/2023 Pneumonia 09/17/2023 Proteinuria, unspecified Pulmonary hypertension ([facility]) 09/17/2023 Radiculopathy, lumbar region 09/17/2023 Tobacco [...] List Items Addressed This Visit Diabetic neuropathy ([facility]) Continue with tristan EAST reviewed Fu in 3 months COPD (chronic obstructive pulmonary disease) ([facility]) Stable at this time, no changes in meds Encouraged smoking cessation Cont with dr Yañez Hypertension ([facility]) - Primary Please check blood pressure daily and record DASH diet Limit caffeine Take medication as directed Contact office if chest pain, pressure, dizziness, shortness of breath, swelling legs Recommend slow position changes Current meds: hydralazine, lisinopril, Type 2 diabetes mellitus with complication, with long-term current use of insulin ([facility]) Check blood sugars daily, notify if [...] 1 cm to 4 cm in diameter ([facility]) Continue with Urology Kidney stone Continue with Urology Non-seasonal allergic rhinitis Relevant Medications cetirizine (ZyrTEC) 10 MG tablet Critical limb ischemia of right lower extremity ([facility]) Saw vascular, does have narrowing in arteries in legs, and thus the wounds not healing At this point they strongly urge to quit smoking or risk limb amputation Cont asa and statin Also good blood pressure and sugar control Venous ulcer of right leg ([facility]) Encounter for smoking cessation counseling Relevant Medications nicotine (Nicoderm, Step 1) 21 MG/24HR patch Other Visit Diagnoses Type 2 diabetes mellitus with unspecified complications ([facility]) Quitting smokinppd, chantix not helped, ] [...] complication, with long-term current use of insulin ([facility]) Check blood sugars daily, notify if [...] PPI Associated Problem(s): PAD (peripheral artery disease) ([facility]) Asa, statin Quit smoking BP and [...] in 3 months documented in this encounter [facility] 06-11-2024 Hospital Discharge instructions Patient Education [...] require a prescription. You can also purchase [id number]-[id number] medicines. Medicines may have nicotine in them [...] and encouragement. Call telephone quitlines, such as 4-508-JXHV-NOW, reach out to support groups, or work [...] provider. Document Revised: 06/16/2022 Document Reviewed: 06/16/2022 [employer] Patient Education 2023 [employer]. 06/11/2024 10:39:22 Dietary Guidelines to Help Prevent [...] include: ?8 oz (237 mL) of milk, bajuxdi-eywtsingijyy-plopg milk, and calcium-fortifiedfruit juice. Calcium-fortified means that [...] ?Spinach (cooked), rhubarb, beets, sweet potatoes, and Portuguese chard. ?Peanuts. ?Potato chips, paraguayan fries, and baked potatoes with skin on. ?Nuts and nut products. ?Chocolate. If you regularly take a diuretic medicine, make sure to eat at least 1 or 2 servings of fruits or vegetables that are high in potassium each day. These include: ?Avocado. ?Banana. ?[place], prune, carrot, or tomato juice. ?Baked potato. [...] magnesium, fish oil, or vitamin B6. Take luvo-pnk-chxmfgw and prescription medicines only as told by [...] Casseroles. Pizza. Lasagna. Frozen meals. Potato chips. Hebrew fries. The items listed above may not [...] provider. Document Revised: 10/05/2022 Document Reviewed: 10/05/2022 [employer] Patient Education 2023 [employer]. Follow Up Care 05/06/2024 08:24:56 With:REGLA PHIPPS, Elbert Joya, URL Address: [facility] [address] , [place] [address]- When: Unknown [facility] 05-27-2024 History of Present illness Narrative [...] or chew. ergocalciferol (Vitamin D2) 1.25 MG (86512 UT) capsule TAKE 1 CAPSULE BY MOUTH ONE TIME PER WEEK furosemide (LASIX) 20 mg, Oral, Daily PRN, Take in the afternoon as needed furosemide (LASIX) 40 mg, Oral, Daily Glucose Blood (ACCU-CHEK JAQUI PLUS ) 4 times daily hydrALAZINE (APRESOLINE) 25 mg, Oral, 2 times daily HYDROcodone-acetaminophen (Day[place]) 5-325 MG tablet 1 tablet, 3 times [...] CT Albuminuria 09/17/2023 Angiomyolipoma Anxiety and depression ([facility]) 07/10/2023 Asthma ([facility]) 07/10/2023 Body mass index (BMI) 50.0-59.9, adult ([facility]) Cellulitis of left lower extremity Cervical cancer ([facility]) 09/17/2023 Chronic pain of both knees 09/17/2023 COPD (chronic obstructive pulmonary disease) ([facility]) 07/10/2023 COPD exacerbation ([facility] 09/17/2023 Decreased functional mobility 09/17/2023 Diabetic neuropathy ([facility] 07/10/2023 Dietary counseling and surveillance Edema 07/10/2023 Elevated sed rate Elevated WBC count GERD (gastroesophageal reflux disease) 09/17/2023 Hyperlipidemia ([facility]) 09/17/2023 Hypertension ([facility]) 07/10/2023 Insomnia 09/17/2023 retirement (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 ([facility]) Lower extremity edema 09/17/2023 Morbid (severe) obesity due to excess calories ([facility]) Obstructive sleep apnea 07/10/2023 PAD (peripheral artery disease) ([facility]) 09/17/2023 Pancreatitis 09/17/2023 Pneumonia 09/17/2023 Proteinuria, unspecified Pulmonary hypertension ([facility] hyperglycemia, with long-term current use of insulin ([facility]) - POCT glucose manually resulted - POCT glycosylated hemoglobin (Hb A1C) docked device We will continue with Lantus 58, lispro 02/16/12 according to meal size, Mounjaro 15 mg once weekly, Farxiga 5 mg once a day Encounter for dietary consultation Vitamin D deficiency Primary hypertension ([facility]) To follow with her PCP Insulin long-term use ([facility]) Hyperlipemia, mixed ([facility]) Continue with Zocor 10 mg once daily Microalbuminuria Class 3 severe obesity due to excess calories with serious comorbidity and body mass index (BMI) of 50.0 to 59.9 in adult ([facility]) Diet and exercise reviewed with the patient Follow up in about 3 months (around 08/27/2024). documented in this encounter [facility] 04-14-2024 History of Present illness Narrative [...] being taken. She does not see a combat engineer.Eye exam is not current. Hypertension This is [...] or chew. ergocalciferol (Vitamin D2) 1.25 MG (16919 UT) capsule TAKE 1 CAPSULE BY MOUTH ONE TIME PER WEEK furosemide (LASIX) 20 mg, Oral, Daily PRN, Take in the afternoon as needed furosemide (LASIX) 40 mg, Oral, Daily Glucose Blood (ACCU-CHEK JAQUI PLUS ) 4 times daily HumaLOG KWIKPEN 100 UNIT/ML injection Subcutaneous hydrALAZINE (APRESOLINE) 25 mg, Oral, 2 times daily HYDROcodone-acetaminophen (Day[place]) 5-325 MG tablet 1 tablet, 3 times [...] CT Albuminuria 09/17/2023 Angiomyolipoma Anxiety and depression ([facility]) 07/10/2023 Asthma ([facility]) 07/10/2023 Cellulitis of left lower extremity Cervical cancer ([facility]) 09/17/2023 Chronic pain of both knees [...] List Items Addressed This Visit Diabetic neuropathy ([facility]) Continue with tristan EAST reviewed Fu in 3 months Relevant Medications pregabalin (Lyrica) 300 MG capsule COPD (chronic obstructive pulmonary disease) ([facility]) - Primary Stable at this time, no changes in meds Encouraged smoking cessation Cont with dr Yañez Hypertension ([facility]) Stable on current meds Refill meds Relevant Medications hydrALAZINE (Apresoline) 25 MG tablet lisinopril 20 MG tablet Type 2 diabetes mellitus with complication, with long-term current use of insulin ([facility]) Check blood sugars daily, follow w [...] 500 MCG tablet documented in this encounter [facility] 11-15-2022 Hospital Discharge instructions Patient Education [...] include: ?8 oz (237 mL) of milk, xcwqtna-bqiocgrnsvfx-aswly milk, and calcium-fortifiedfruit juice. Calcium-fortified means that [...] ?Spinach (cooked), rhubarb, beets, sweet potatoes, and Portuguese chard. ?Peanuts. ?Potato chips, paraguayan fries, and baked potatoes with skin on. ?Nuts and nut products. ?Chocolate. If you regularly take a diuretic medicine, make sure to eat at least 1 or 2 servings of fruits or vegetables that are high in potassium each day. These include: ?Avocado. ?Banana. ?[place], prune, carrot, or tomato juice. ?Baked potato. [...] magnesium, fish oil, or vitamin B6. Take lmjx-drq-sokphyj and prescription medicines only as told by [...] Casseroles. Pizza. Lasagna. Frozen meals. Potato chips. Hebrew fries. The items listed above may not [...] provider. Document Revised: 03/06/2022 Document Reviewed: 03/06/2022 [employer] Patient Education 2022 [employer]. Follow Up Care 02/06/2022 11:44:09 With:SARAH VEGA PA-C, URL Address: [address] [place] [address] When: Unknown [facility] 08-24-2022 Note CONSULTATION CONSULTATION DATE: 08/24/2022 [...] We maintain her on pain medication with [place] 5/325 t.i.d., diclofenac 75 mg b.i.d. Her [...] her at this point. A refill for [place] 5/325 t.i.d. and diclofenac 75 mg b.i.d. will be sent to the pharmacy. Vitamin compliance and nutrition were discussed and enforced. I did highly encourage her to use exercise bands to increase the strength in her lower extremities. We will see her in three months' time, unless otherwise indicated, and patient agrees. [facility] 05-11-2022 Note CONSULTATION CONSULTATION DATE: [...] 150. Medications include Lyrica 300 mg b.i.d., [place] 5/325 t.i.d., diclofenac 75 mg b.i.d. and [...] her medications today. We will maintain Lyrica, [place] and diclofenac at the set dose and frequency. We will follow-up in the clinic in three months' time. The patient is in agreement to this. Vitamin importance and nutrition were discussed. [facility] 04-20-2022 Note CONSULTATION CONSULTATION DATE: [...] medications include Tylenol, Lyrica 300 mg b.i.d., [place] 5/325 t.i.d., amitriptyline, diclofenac and duloxetine. Patient's [...] be followed up in the clinic. [facility] 03-08-2022 Evaluation note Encounter Date [...] to the DANIEL. Thrombocytopenia is unclear etiology. [employer] Other 08-15-2022 Evaluation note* Encounter Date Diagnosis [...] follow with Dr. Souza and Dr. Arauz. [employer] [facility] 08-01-2022 Hospital Discharge instructions Patient Education [...] fried and sweet foods. General instructions Take avme-[id number]-ttinrmj and prescription medicines only as told by [...] 04/21/2010 Document Revised: 10/16/2019 Document Reviewed: 07/11/2018 [facility] Patient Education 2020 [place]. Follow Up Care 01/05/2022 12:02:03 With:REGLA PHIPPS, Elbert Joya, URL Address: [facility] [address] [place] [address] [phone] When:Within 6 Month(s) Comments:w/ repeat CT A/P [facility] 07-14-2022 NoteCONSULTATION PROCEDURE DATE: 01/19/2022 PRE [...] pattern and the patient tolerated it well. [facility] Signed and Approved by: GIL VALENZUELA . 01/27/2022 14:15:00[facility]07-14-2022 NoteCONSULTATION CONSULTATION DATE: 01/19/2022 This is a [...] today. Medications include Lyrica 300 mg b.i.d., [place] 5/325 t.i.d., diclofenac 75 mg b.i.d. and [...] in three months' time unless otherwise indicated. [facility] Signed and Approved by: GIL VALENZUELA . 01/27/2022 14:[facility] Future Appointments Appointment Date:08/14/2022 09:15:00 AM Scheduled Provider:Elbert ARAUZ MD Location:[facility] Appointment Type:URO Office Visit [facility] evaluation + Plan note Future Appointments Appointment Date:04/22/2024 10:00:00 AM Scheduled Provider:SARAH VEGA PA-C Location:[facility] Appointment Type:URO Office Visit [facility] evalvivoyr note* Diagnosis Type 2 diabetes mellitus with unspecified complications ([facility]) Edema, unspecified Edema [facility]* Diagnosis Vaginal yeast infection- Primary Candidiasis of vulva and vagina documented in this encounter [facility]* Diagnosis Primary hypertension ([facility]/HCC)- Primary Unspecified essential hypertension Insomnia Insomnia, unspecified Type 2 diabetes mellitus with complication, with long-term current use of insulin (CMS/HCC) Non-seasonal allergic rhinitis, unspecified trigger Type 2 diabetes mellitus with unspecified complications (CMS/HCC) Anxiety and depression ([facility]) Gastro-esophageal reflux disease without esophagitis Edema, unspecified Edema Diabetic polyneuropathy associated with type 2 diabetes mellitus ([facility]/HCC) Chronic obstructive pulmonary disease, unspecified (CMS/HCC) Pulmonary emphysema, unspecified emphysema type (CMS/HCC) Bilateral lower extremity edema Tobacco user Tobacco use disorder Hyperpigmentation of skin Other dyschromia documented [facility]* Diagnosis Obstructive sleep apnea- Primary Obstructive sleep apnea (adult) (pediatric) Pulmonary emphysema, unspecified emphysema type (CMS/HCC) Primary hypertension ([facility]) Unspecified essential hypertension Type 2 diabetes mellitus with complication, with long-term current use of insulin ([facility]) Anxiety and depression (CMS/[facility]) Bilateral lower extremity edema Pulmonary emphysema, unspecified emphysema type (CMS/HCC)- Primary Primary hypertension (CMS/[facility]) Unspecified essential hypertension Class 3 severe obesity with serious comorbidity and body mass index (BMI) of 50.0 to 59.9 in adult, unspecified obesity type ([facility]) Obstructive sleep apnea Obstructive sleep apnea (adult) (pediatric) Pulmonary hypertension (CMS/[facility]) Other chronic pulmonary heart diseases Tobacco user Tobacco use disorder Cardiomegaly Primary hypertension ([facility])- Primary Unspecified essential hypertension Gastroesophageal reflux disease, unspecified whether esophagitis present Type 2 diabetes mellitus with complication, with long-term current use of insulin ([facility]) Mixed hyperlipidemia ([facility]) Mixed hyperlipidemia Tobacco user Tobacco use disorder Encounter for screening mammogram for malignant neoplasm of breast Chronic obstructive pulmonary disease, unspecified ([facility]) Other specified chronic obstructive pulmonary disease ([facility]) Anxiety and depression ([facility]) Edema, unspecified Edema Hyperlipidemia, unspecified ([facility]) Diabetic polyneuropathy associated with type 2 diabetes mellitus ([facility]) Gout, unspecified cause, unspecified chronicity, unspecified site Non-seasonal allergic rhinitis, unspecified trigger Bilateral lower extremity edema COPD exacerbation ([facility]) Obstructive chronic bronchitis with exacerbation Pulmonary emphysema, unspecified emphysema type ([facility]) Venous insufficiency Unspecified venous (peripheral) insufficiency Candidiasis of breast COPD exacerbation ([facility])- Primary Obstructive chronic bronchitis with exacerbation Pulmonary hypertension ([facility]) Other chronic pulmonary heart diseases Class 3 severe obesity with serious comorbidity and body mass index (BMI) of 50.0 to 59.9 in adult, unspecified obesity type ([facility]) Encounter for subsequent annual wellness visit (AWV) in Medicare patient- Primary Type 2 diabetes mellitus with unspecified complications ([facility]) Pulmonary emphysema, unspecified emphysema type ([facility] Moderate persistent asthma without complication ([facility]) Primary hypertension ([facility]) Unspecified essential hypertension Type 2 diabetes mellitus with complication, with long-term current use of insulin ([facility]) Class 3 severe obesity with serious comorbidity and body mass index (BMI) of 50.0 to 59.9 in adult, unspecified obesity type ([facility]) Tobacco user Tobacco use disorder Other headache syndrome Malignant neoplasm of cervix uteri, unspecified ([facility]) Other specified disorders of adrenal gland ([facility]) Major depressive disorder, single episode, mild (HCC) ([facility]) Major depressive disorder, single episode, mild 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 exposed ([facility]) Chronic respiratory failure, unspecified whether with hypoxia or hypercapnia ([facility]) Disorder of adrenal gland, unspecified ([facility]) Non-pressure chronic ulcer of other part of right lower leg limited to breakdown of skin ([facility]) Non-recurrent acute suppurative otitis media of left ear without spontaneous rupture of tympanic membrane Primary hypertension ([facility])- Primary Unspecified essential hypertension Insomnia Insomnia, unspecified Type 2 diabetes mellitus with complication, with long-term current use of insulin ([facility]) Non-seasonal allergic rhinitis, unspecified trigger Type 2 diabetes mellitus with unspecified complications ([facility]) Anxiety and depression ([facility]) Gastro-esophageal reflux disease without esophagitis Edema, unspecified Edema Diabetic polyneuropathy associated with type 2 diabetes mellitus ([facility]) Chronic obstructive pulmonary disease, unspecified ([facility]) Pulmonary emphysema, unspecified emphysema type ([facility]) Bilateral lower extremity edema Tobacco user Tobacco use disorder Hyperpigmentation of skin Other dyschromia Type 2 diabetes mellitus with hyperglycemia, with long-term current use of insulin ([facility])- Primary Encounter for dietary consultation Vitamin D deficiency Primary hypertension ([facility]) Unspecified essential hypertension Insulin long-term use ([facility]) Encounter for long-term (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 Hyperlipemia, mixed ([facility]) Mixed hyperlipidemia Microalbuminuria Proteinuria Class 3 severe obesity due to excess calories with serious comorbidity and body mass index (BMI) of 50.0 to 59.9 in adult ([facility]) documented in this encounter [facility] HealthcareEvaluation note* Diagnosis Hyperlipidemia, unspecified ([facility]) Bilateral lower extremity edema documented in this encounter [facility]* Diagnosis Vitamin D deficiency, unspecified documented in this encounter [facility] HealthcareEvaluation note* Diagnosis Obstructive sleep apnea- Primary Obstructive sleep apnea (adult) (pediatric) Pulmonary emphysema, unspecified emphysema type ([facility]) Primary hypertension ([facility]) Unspecified essential hypertension Type 2 diabetes mellitus with complication, with long-term current use of insulin ([facility]) Anxiety and depression ([facility]) Bilateral lower extremity edema Pulmonary emphysema, unspecified emphysema type ([facility])- Primary Primary hypertension ([facility]) Unspecified essential hypertension Class 3 severe obesity with serious comorbidity and body mass index (BMI) of 50.0 to 59.9 in adult, unspecified obesity type ([facility]) Obstructive sleep apnea Obstructive sleep apnea (adult) (pediatric) Pulmonary hypertension ([facility]) Other chronic pulmonary heart diseases Tobacco user Tobacco use disorder Cardiomegaly Primary hypertension ([facility])- Primary Unspecified essential hypertension Gastroesophageal reflux disease, unspecified whether esophagitis present Type 2 diabetes mellitus with complication, with long-term current use of insulin ([facility]) Mixed hyperlipidemia ([facility]) Mixed hyperlipidemia Tobacco user Tobacco use disorder Encounter for screening mammogram for malignant neoplasm of breast Chronic obstructive pulmonary disease, unspecified ([facility]) Other specified chronic obstructive pulmonary disease ([facility]) Anxiety and depression ([facility]) Edema, unspecified Edema Hyperlipidemia, unspecified ([facility]) Diabetic polyneuropathy associated with type 2 diabetes mellitus ([facility]) Gout, unspecified cause, unspecified chronicity, unspecified site Non-seasonal allergic rhinitis, unspecified trigger Bilateral lower extremity edema COPD exacerbation ([facility]) Obstructive chronic bronchitis with exacerbation Pulmonary emphysema, unspecified emphysema type ([facility]) Venous insufficiency Unspecified venous (peripheral) insufficiency Candidiasis of breast COPD exacerbation ([facility])- Primary Obstructive chronic bronchitis with exacerbation Pulmonary hypertension ([facility]) Other chronic pulmonary heart diseases Class 3 severe obesity with serious comorbidity and body mass index (BMI) of 50.0 to 59.9 in adult, unspecified obesity type ([facility]) Encounter for subsequent annual wellness visit (AWV) in Medicare patient- Primary Type 2 diabetes mellitus with unspecified complications ([facility]) Pulmonary emphysema, unspecified emphysema type ([facility] Moderate persistent asthma without complication ([facility]) Primary hypertension ([facility]) Unspecified essential hypertension Type 2 diabetes mellitus with complication, with long-term current use of insulin ([facility]) Class 3 severe obesity with serious comorbidity and body mass index (BMI) of 50.0 to 59.9 in adult, unspecified obesity type ([facility]) Tobacco user Tobacco use disorder Other headache syndrome Malignant neoplasm of cervix uteri, unspecified ([facility]) Other specified disorders of adrenal gland ([facility]) Major depressive disorder, single episode, mild (HCC) ([facility]) Major depressive disorder, single episode, mild 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 exposed ([facility]) Chronic respiratory failure, unspecified whether with hypoxia or hypercapnia ([facility]) Disorder of adrenal gland, unspecified ([facility]) Non-pressure chronic ulcer of other part of right lower leg limited to breakdown of skin ([facility]) Non-recurrent acute suppurative otitis media of left ear without spontaneous rupture of tympanic membrane Primary hypertension ([facility])- Primary Unspecified essential hypertension Insomnia Insomnia, unspecified Type 2 diabetes mellitus with complication, with long-term current use of insulin ([facility]) Non-seasonal allergic rhinitis, unspecified trigger Type 2 diabetes mellitus with unspecified complications ([facility]) Anxiety and depression ([facility]) Gastro-esophageal reflux disease without esophagitis Edema, unspecified Edema Diabetic polyneuropathy associated with type 2 diabetes mellitus ([facility]) Chronic obstructive pulmonary disease, unspecified ([facility]) Pulmonary emphysema, unspecified emphysema type ([facility]) Bilateral lower extremity edema Tobacco user Tobacco use disorder Hyperpigmentation of skin Other dyschromia Bilateral lower extremity edema documented in [facility] encounter [facility]* Diagnosis Obstructive sleep apnea- Primary Obstructive sleep apnea (adult) (pediatric) Pulmonary emphysema, unspecified emphysema type ([facility]) Primary hypertension ([facility]) Unspecified essential hypertension Type 2 diabetes mellitus with complication, with long-term current use of insulin ([facility]) Anxiety and depression ([facility]) Bilateral lower extremity edema Pulmonary emphysema, unspecified emphysema type ([facility]/HCC)- Primary Primary hypertension ([facility]) Unspecified essential hypertension Class 3 severe obesity with serious comorbidity and body mass index (BMI) of 50.0 to 59.9 in adult, unspecified obesity type ([facility]) Obstructive sleep apnea Obstructive sleep apnea (adult) (pediatric) Pulmonary hypertension ([facility]) Other chronic pulmonary heart diseases Tobacco user Tobacco use disorder Cardiomegaly Primary hypertension ([facility])- Primary Unspecified essential hypertension Gastroesophageal reflux [...] to 59.9 in adult, unspecified obesity type ([facility]) Encounter for subsequent annual wellness visit (AWV) in Medicare patient- Primary Type 2 diabetes mellitus with unspecified complications (CMS/HCC) Pulmonary emphysema, unspecified emphysema type (CMS/HCC) Moderate persistent asthma without complication (CMS/HCC) Primary hypertension ([facility]) Unspecified essential hypertension Type 2 diabetes mellitus with complication, with long-term current use of insulin ([facility]) Class 3 severe obesity with serious [...] complication, with long-term current use of insulin ([facility]) Non-seasonal allergic rhinitis, unspecified trigger Type 2 diabetes mellitus with unspecified complications ([facility]) Anxiety and depression ([facility]) Gastro-esophageal reflux disease without esophagitis Edema, unspecified Edema Diabetic polyneuropathy associated with type 2 diabetes mellitus ([facility]) Chronic obstructive pulmonary disease, unspecified ([facility]) Pulmonary emphysema, unspecified emphysema type ([facility]) Bilateral lower extremity edema Tobacco user Tobacco use disorder Hyperpigmentation of skin Other dyschromia Primary hypertension ([facility])- Primary Unspecified essential hypertension Diabetic polyneuropathy associated with type 2 diabetes mellitus ([facility]) Pulmonary emphysema, unspecified emphysema type ([facility]) Critical limb ischemia of right lower extremity ([facility]) PAD (peripheral artery disease) ([facility]) Unspecified peripheral vascular disease Gastroesophageal reflux disease, unspecified whether esophagitis present Bilateral lower extremity edema Venous ulcer of right leg ([facility]) Type 2 diabetes mellitus with complication, with long-term current use of insulin ([facility]) Tobacco user Tobacco use disorder Encounter for smoking cessation counseling Kidney stone Calculus of kidney Adrenal mass 1 cm to 4 cm in diameter ([facility]) Radiculopathy, lumbar region Thoracic or lumbosacral neuritis or radiculitis, unspecified Non-seasonal allergic rhinitis, unspecified trigger Type 2 diabetes mellitus with unspecified complications ([facility]) documented in this encounter [facility] HealthcareEvaluation note* Diagnosis Obstructive sleep apnea- Primary Obstructive sleep apnea (adult) (pediatric) Pulmonary emphysema, unspecified emphysema type ([facility]) Primary hypertension ([facility]) Unspecified essential hypertension Type 2 diabetes mellitus with complication, with long-term current use of insulin ([facility]) Anxiety and depression ([facility]) Bilateral lower extremity edema Pulmonary emphysema, unspecified emphysema type ([facility])- Primary Primary hypertension ([facility]) Unspecified essential hypertension Class 3 severe obesity with serious comorbidity and body mass index (BMI) of 50.0 to 59.9 in adult, unspecified obesity type ([facility]) Obstructive sleep apnea Obstructive sleep apnea (adult) (pediatric) Pulmonary hypertension ([facility]) Other chronic pulmonary heart diseases Tobacco user Tobacco use disorder Cardiomegaly Primary hypertension ([facility])- Primary Unspecified essential hypertension Gastroesophageal reflux [...] to 59.9 in adult, unspecified obesity type ([facility]) Encounter for subsequent annual wellness visit (AWV) in Medicare patient- Primary Type 2 diabetes mellitus with unspecified complications (CMS/HCC) Pulmonary emphysema, unspecified emphysema type (CMS/HCC) Moderate persistent asthma without complication (CMS/HCC) Primary hypertension ([facility]) Unspecified essential hypertension Type 2 diabetes mellitus with complication, with long-term current use of insulin ([facility]) Class 3 severe obesity with serious [...] complication, with long-term current use of insulin ([facility]) Non-seasonal allergic rhinitis, unspecified trigger Type 2 diabetes mellitus with unspecified complications ([facility]) Anxiety and depression ([facility]) Gastro-esophageal reflux disease without esophagitis Edema, unspecified Edema Diabetic polyneuropathy associated with type 2 diabetes mellitus ([facility]) Chronic obstructive pulmonary disease, unspecified ([facility]) Pulmonary emphysema, unspecified emphysema type ([facility]) Bilateral lower extremity edema Tobacco user Tobacco use disorder Hyperpigmentation of skin Other dyschromia Primary hypertension ([facility])- Primary Unspecified essential hypertension Diabetic polyneuropathy associated with type 2 diabetes mellitus ([facility]) Pulmonary emphysema, unspecified emphysema type ([facility]) Critical limb ischemia of right lower extremity ([facility]) PAD (peripheral artery disease) ([facility]) Unspecified peripheral vascular disease Gastroesophageal reflux disease, unspecified whether esophagitis present Bilateral lower extremity edema Venous ulcer of right leg ([facility]) Type 2 diabetes mellitus with complication, with long-term current use of insulin ([facility]) Tobacco user Tobacco use disorder Encounter for smoking cessation counseling Kidney stone Calculus of kidney Adrenal mass 1 cm to 4 cm in diameter ([facility]) Radiculopathy, lumbar region Thoracic or lumbosacral neuritis or radiculitis, unspecified Non-seasonal allergic rhinitis, unspecified trigger Type 2 diabetes mellitus with unspecified complications ([facility]) Anxiety and depression ([facility])- Primary Morbid (severe) obesity due to excess calories ([facility]) Body mass index (BMI) 50.0-59.9, adult ([facility]) Malignant neoplasm of cervix uteri, unspecified ([facility]) Diabetic polyneuropathy associated with type 2 diabetes mellitus ([facility] Chronic diastolic heart failure ([facility] Chronic diastolic heart failure Primary hypertension ([facility] Unspecified essential hypertension 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 ([facility]) Gastroesophageal reflux disease, unspecified whether esophagitis present Bilateral lower extremity edema Type 2 diabetes mellitus with complication, with long-term current use of insulin ([facility]) Tobacco user Tobacco use disorder Mixed hyperlipidemia ([facility]) Mixed hyperlipidemia Gout, unspecified cause, unspecified chronicity, unspecified site Vitamin deficiency Unspecified vitamin deficiency Gastro-esophageal reflux disease without esophagitis Edema, unspecified Edema Hyperlipidemia, unspecified ([facility]) Encounter for smoking cessation counseling Venous ulcer of right leg ([facility]) Antibiotic-induced yeast infection documented in this encounter [facility] HealthcareEvaluation note* Diagnosis Obstructive sleep apnea- Primary Obstructive sleep apnea (adult) (pediatric) Pulmonary emphysema, unspecified emphysema type ([facility]) Primary hypertension ([facility]) Unspecified essential hypertension Type 2 diabetes mellitus with complication, with long-term current use of insulin ([facility]) Anxiety and depression ([facility]) Bilateral lower extremity edema Pulmonary emphysema, unspecified emphysema type ([facility])- Primary Primary hypertension ([facility]) Unspecified essential hypertension Class 3 severe obesity with serious comorbidity and body mass index (BMI) of 50.0 to 59.9 in adult, unspecified obesity type Obstructive sleep apnea Obstructive sleep apnea (adult) (pediatric) Pulmonary hypertension ([facility]) Other chronic pulmonary heart diseases Tobacco user Tobacco use disorder Cardiomegaly Primary hypertension ([facility])- Primary Unspecified essential hypertension Gastroesophageal reflux disease, unspecified whether esophagitis present Type 2 diabetes mellitus with complication, with long-term current use of insulin ([facility]) Mixed hyperlipidemia ([facility]) Mixed hyperlipidemia Tobacco user Tobacco use disorder Encounter for screening mammogram for malignant neoplasm of breast Chronic obstructive pulmonary disease, unspecified Other specified chronic obstructive pulmonary disease Anxiety and depression ([facility]) Edema, unspecified Edema Hyperlipidemia, unspecified ([facility]) Diabetic polyneuropathy associated with type 2 diabetes mellitus ([facility]) Gout, unspecified cause, unspecified chronicity, unspecified site Non-seasonal allergic rhinitis, unspecified trigger Bilateral lower extremity edema COPD exacerbation ([facility]) Obstructive chronic bronchitis with exacerbation Pulmonary emphysema, unspecified emphysema type ([facility] Venous insufficiency Unspecified venous (peripheral) insufficiency Candidiasis of breast COPD exacerbation ([facility])- Primary Obstructive chronic bronchitis with exacerbation Pulmonary hypertension ([facility]) Other chronic pulmonary heart diseases Class 3 severe obesity with serious comorbidity and body mass index (BMI) of 50.0 to 59.9 in adult, unspecified obesity type Encounter for subsequent annual wellness visit (AWV) in Medicare patient- Primary Type 2 diabetes mellitus with unspecified complications Pulmonary emphysema, unspecified emphysema type ([facility] Moderate persistent asthma without complication ([facility]) Primary hypertension ([facility]) Unspecified essential hypertension Type 2 diabetes mellitus with complication, with long-term current use of insulin ([facility]) Class 3 severe obesity with serious comorbidity and body mass index (BMI) of 50.0 to 59.9 in adult, unspecified obesity type Tobacco user Tobacco use disorder Other headache syndrome Malignant neoplasm of cervix uteri, unspecified Other specified disorders of adrenal gland Major depressive disorder, single episode, mild (HCC) ([facility]) Major depressive disorder, single episode, mild 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 exposed Chronic respiratory failure, unspecified whether with hypoxia or hypercapnia Disorder of adrenal gland, unspecified Non-pressure chronic ulcer of other part of right lower leg limited to breakdown of skin ([facility]) Non-recurrent acute suppurative otitis media of left ear without spontaneous rupture of tympanic membrane Primary hypertension ([facility])- Primary Unspecified essential hypertension Insomnia Insomnia, unspecified Type 2 diabetes mellitus with complication, with long-term current use of insulin ([facility]) Non-seasonal allergic rhinitis, unspecified trigger Type 2 diabetes mellitus with unspecified complications Anxiety and depression ([facility]) Gastro-esophageal reflux disease without esophagitis Edema, unspecified Edema Diabetic polyneuropathy associated with type 2 diabetes mellitus ([facility]) Chronic obstructive pulmonary disease, unspecified Pulmonary emphysema, unspecified emphysema type ([facility]) Bilateral lower extremity edema Tobacco user Tobacco use disorder Hyperpigmentation of skin Other dyschromia Primary hypertension ([facility])- Primary Unspecified essential hypertension Diabetic polyneuropathy associated with type 2 diabetes mellitus ([facility]) Pulmonary emphysema, unspecified emphysema type ([facility]) Critical limb ischemia of right lower extremity ([facility]) PAD (peripheral artery disease) ([facility]) Unspecified peripheral vascular disease Gastroesophageal reflux disease, unspecified whether esophagitis present Bilateral lower extremity edema Venous ulcer of right leg ([facility]) Type 2 diabetes mellitus with complication, with long-term current use of insulin ([facility]) Tobacco user Tobacco use disorder Encounter for smoking cessation counseling Kidney stone Calculus of kidney Adrenal mass 1 cm to 4 cm in diameter ([facility]) Radiculopathy, lumbar region Thoracic or lumbosacral neuritis or radiculitis, unspecified Non-seasonal allergic rhinitis, unspecified trigger Type 2 diabetes mellitus with unspecified complications Anxiety and depression ([facility])- Primary Morbid (severe) obesity due to excess calories ([facility]) Body mass index (BMI) 50.0-59.9, adult ([facility]) Malignant neoplasm of cervix uteri, unspecified Diabetic polyneuropathy associated with type 2 diabetes mellitus ([facility] Chronic diastolic heart failure ([facility] Chronic diastolic heart failure Primary hypertension ([facility]) Unspecified essential hypertension 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 Gastroesophageal reflux disease, unspecified whether esophagitis present Bilateral lower extremity edema Type 2 diabetes mellitus with complication, with long-term current use of insulin ([facility]) Tobacco user Tobacco use disorder Mixed hyperlipidemia ([facility]) Mixed hyperlipidemia Gout, unspecified cause, unspecified chronicity, unspecified site Vitamin deficiency Unspecified vitamin deficiency Gastro-esophageal reflux disease without esophagitis Edema, unspecified Edema Hyperlipidemia, unspecified ([facility] Encounter for smoking cessation counseling Venous ulcer of right leg ([facility]) Antibiotic-induced yeast infection Type 2 diabetes mellitus with hyperglycemia, with long-term current use of insulin ([facility])- Primary Encounter for dietary consultation Vitamin D deficiency Primary hypertension ([facility] Unspecified essential hypertension Insulin long-term use ([facility]) Encounter for long-term (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 Hyperlipemia, mixed ([facility]) Mixed hyperlipidemia Microalbuminuria Proteinuria Class 3 severe obesity due to excess calories with serious comorbidity and body mass index (BMI) of 50.0 to 59.9 in adult documented in this encounter [facility] HealthcareEvaluation note* Diagnosis Obstructive sleep apnea- Primary Obstructive sleep apnea (adult) (pediatric) Pulmonary emphysema, unspecified emphysema type ([facility]) Primary hypertension ([facility]) Unspecified essential hypertension Type 2 diabetes mellitus with complication, with long-term current use of insulin ([facility]) Anxiety and depression ([facility]) Bilateral lower extremity edema Pulmonary emphysema, unspecified emphysema type ([facility])- Primary Primary hypertension ([facility]) Unspecified essential hypertension Class 3 severe obesity with serious comorbidity and body mass index (BMI) of 50.0 to 59.9 in adult, unspecified obesity type Obstructive sleep apnea Obstructive sleep apnea (adult) (pediatric) Pulmonary hypertension ([facility]) Other chronic pulmonary heart diseases Tobacco user Tobacco use disorder Cardiomegaly Primary hypertension ([facility])- Primary Unspecified essential hypertension Gastroesophageal reflux disease, unspecified whether esophagitis present Type 2 diabetes mellitus with complication, with long-term current use of insulin ([facility]) Mixed hyperlipidemia ([facility]) Mixed hyperlipidemia Tobacco user Tobacco use disorder Encounter for screening mammogram for malignant neoplasm of breast Chronic obstructive pulmonary disease, unspecified Other specified chronic obstructive pulmonary disease Anxiety and depression ([facility]) Edema, unspecified Edema Hyperlipidemia, unspecified ([facility]) Diabetic polyneuropathy associated with type 2 diabetes mellitus ([facility]) Gout, unspecified cause, unspecified chronicity, unspecified site Non-seasonal allergic rhinitis, unspecified trigger Bilateral lower extremity edema COPD exacerbation ([facility]) Obstructive chronic bronchitis with exacerbation Pulmonary emphysema, unspecified emphysema type ([facility]) Venous insufficiency Unspecified venous (peripheral) insufficiency Candidiasis of breast COPD exacerbation ([facility])- Primary Obstructive chronic bronchitis with exacerbation Pulmonary hypertension ([facility]) Other chronic pulmonary heart diseases Class 3 severe obesity with serious comorbidity and body mass index (BMI) of 50.0 to 59.9 in adult, unspecified obesity type Encounter for subsequent annual wellness visit (AWV) in Medicare patient- Primary Type 2 diabetes mellitus with unspecified complications Pulmonary emphysema, unspecified emphysema type ([facility]) Moderate persistent asthma without complication ([facility]) Primary hypertension ([facility]) Unspecified essential hypertension Type 2 diabetes mellitus with complication, with long-term current use of insulin ([facility]) Class 3 severe obesity with serious comorbidity and body mass index (BMI) of 50.0 to 59.9 in adult, unspecified obesity type Tobacco user Tobacco use disorder Other headache syndrome Malignant neoplasm of cervix uteri, unspecified Other specified disorders of adrenal gland Major depressive disorder, single episode, mild (HCC) ([facility]) Major depressive disorder, single episode, mild 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 exposed Chronic respiratory failure, unspecified whether with hypoxia or hypercapnia Disorder of adrenal gland, unspecified Non-pressure chronic ulcer of other part of right lower leg limited to breakdown of skin ([facility]) Non-recurrent acute suppurative otitis media of left ear without spontaneous rupture of tympanic membrane Primary hypertension ([facility])- Primary Unspecified essential hypertension Insomnia Insomnia, unspecified Type 2 diabetes mellitus with complication, with long-term current use of insulin ([facility]) Non-seasonal allergic rhinitis, unspecified trigger Type 2 diabetes mellitus with unspecified complications Anxiety and depression ([facility]) Gastro-esophageal reflux disease without esophagitis Edema, unspecified Edema Diabetic polyneuropathy associated with type 2 diabetes mellitus ([facility]) Chronic obstructive pulmonary disease, unspecified Pulmonary emphysema, unspecified emphysema type ([facility]) Bilateral lower extremity edema Tobacco user Tobacco use disorder Hyperpigmentation of skin Other dyschromia Primary hypertension ([facility])- Primary Unspecified essential hypertension Diabetic polyneuropathy associated with type 2 diabetes mellitus ([facility]) Pulmonary emphysema, unspecified emphysema type ([facility]) Critical limb ischemia of right lower extremity ([facility]) PAD (peripheral artery disease) ([facility]) Unspecified peripheral vascular disease Gastroesophageal reflux disease, unspecified whether esophagitis present Bilateral lower extremity edema Venous ulcer of right leg ([facility]) Type 2 diabetes mellitus with complication, with long-term current use of insulin ([facility]) Tobacco user Tobacco use disorder Encounter for smoking cessation counseling Kidney stone Calculus of kidney Adrenal mass 1 cm to 4 cm in diameter ([facility] Radiculopathy, lumbar region Thoracic or lumbosacral neuritis or radiculitis, unspecified Non-seasonal allergic rhinitis, unspecified trigger Type 2 diabetes mellitus with unspecified complications Anxiety and depression ([facility])- Primary Morbid (severe) obesity due to excess calories ([facility]) Body mass index (BMI) 50.0-59.9, adult ([facility]) Malignant neoplasm of cervix uteri, unspecified Diabetic polyneuropathy associated with type 2 diabetes mellitus ([facility] Chronic diastolic heart failure ([facility]) Chronic diastolic heart failure Primary hypertension ([facility]) Unspecified essential hypertension 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 Gastroesophageal reflux disease, unspecified whether esophagitis present Bilateral lower extremity edema Type 2 diabetes mellitus with complication, with long-term current use of insulin ([facility]) Tobacco user Tobacco use disorder Mixed hyperlipidemia ([facility]) Mixed hyperlipidemia Gout, unspecified cause, unspecified chronicity, unspecified site Vitamin deficiency Unspecified vitamin deficiency Gastro-esophageal reflux disease without esophagitis Edema, unspecified Edema Hyperlipidemia, unspecified ([facility]) Encounter for smoking cessation counseling Venous ulcer of right leg ([facility] Antibiotic-induced yeast infection Chronic obstructive pulmonary disease, unspecified documented in this encounter [facility] HealthcareEvaluation note* Diagnosis Obstructive sleep apnea- Primary Obstructive sleep apnea (adult) (pediatric) Pulmonary emphysema, unspecified emphysema type ([facility]) Primary hypertension ([facility]) Unspecified essential hypertension Type 2 diabetes mellitus with complication, with long-term current use of insulin ([facility]) Anxiety and depression ([facility]) Bilateral lower extremity edema Pulmonary emphysema, unspecified emphysema type ([facility])- Primary Primary hypertension ([facility]) Unspecified essential hypertension Class 3 severe obesity with serious comorbidity and body mass index (BMI) of 50.0 to 59.9 in adult, unspecified obesity type Obstructive sleep apnea Obstructive sleep apnea (adult) (pediatric) Pulmonary hypertension ([facility]) Other chronic pulmonary heart diseases Tobacco user Tobacco use disorder Cardiomegaly Primary hypertension ([facility])- Primary Unspecified essential hypertension Gastroesophageal reflux disease, unspecified whether esophagitis present Type 2 diabetes mellitus with complication, with long-term current use of insulin ([facility]) Mixed hyperlipidemia ([facility]) Mixed hyperlipidemia Tobacco user Tobacco use disorder Encounter for screening mammogram for malignant neoplasm of breast Chronic obstructive pulmonary disease, unspecified Other specified chronic obstructive pulmonary disease Anxiety and depression ([facility]) Edema, unspecified Edema Hyperlipidemia, unspecified ([facility]) Diabetic polyneuropathy associated with type 2 diabetes mellitus ([facility]) Gout, unspecified cause, unspecified chronicity, unspecified site Non-seasonal allergic rhinitis, unspecified trigger Bilateral lower extremity edema COPD exacerbation ([facility]) Obstructive chronic bronchitis with exacerbation Pulmonary emphysema, unspecified emphysema type ([facility]) Venous insufficiency Unspecified venous (peripheral) insufficiency Candidiasis of breast COPD exacerbation ([facility])- Primary Obstructive chronic bronchitis with exacerbation Pulmonary hypertension ([facility]) Other chronic pulmonary heart diseases Class 3 severe obesity with serious comorbidity and body mass index (BMI) of 50.0 to 59.9 in adult, unspecified obesity type Encounter for subsequent annual wellness visit (AWV) in Medicare patient- Primary Type 2 diabetes mellitus with unspecified complications Pulmonary emphysema, unspecified emphysema type ([facility] Moderate persistent asthma without complication ([facility]) Primary hypertension ([facility]) Unspecified essential hypertension Type 2 diabetes mellitus with complication, with long-term current use of insulin ([facility]) Class 3 severe obesity with serious comorbidity and body mass index (BMI) of 50.0 to 59.9 in adult, unspecified obesity type Tobacco user Tobacco use disorder Other headache syndrome Malignant neoplasm of cervix uteri, unspecified Other specified disorders of adrenal gland Major depressive disorder, single episode, mild (HCC) ([facility]) Major depressive disorder, single episode, mild 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 exposed Chronic respiratory failure, unspecified whether with hypoxia or hypercapnia Disorder of adrenal gland, unspecified Non-pressure chronic ulcer of other part of right lower leg limited to breakdown of skin ([facility]) Non-recurrent acute suppurative otitis media of left ear without spontaneous rupture of tympanic membrane Primary hypertension ([facility])- Primary Unspecified essential hypertension Insomnia Insomnia, unspecified Type 2 diabetes mellitus with complication, with long-term current use of insulin ([facility]) Non-seasonal allergic rhinitis, unspecified trigger Type 2 diabetes mellitus with unspecified complications Anxiety and depression ([facility]) Gastro-esophageal reflux disease without esophagitis Edema, unspecified Edema Diabetic polyneuropathy associated with type 2 diabetes mellitus ([facility]) Chronic obstructive pulmonary disease, unspecified Pulmonary emphysema, unspecified emphysema type ([facility]) Bilateral lower extremity edema Tobacco user Tobacco use disorder Hyperpigmentation of skin Other dyschromia Primary hypertension ([facility])- Primary Unspecified essential hypertension Diabetic polyneuropathy associated with type 2 diabetes mellitus ([facility]) Pulmonary emphysema, unspecified emphysema type ([facility] Critical limb ischemia of right lower extremity ([facility]) PAD (peripheral artery disease) ([facility]) Unspecified peripheral vascular disease Gastroesophageal reflux disease, unspecified whether esophagitis present Bilateral lower extremity edema Venous ulcer of right leg ([facility]) Type 2 diabetes mellitus with complication, with long-term current use of insulin ([facility]) Tobacco user Tobacco use disorder Encounter for smoking cessation counseling Kidney stone Calculus of kidney Adrenal mass 1 cm to 4 cm in diameter ([facility]) Radiculopathy, lumbar region Thoracic or lumbosacral neuritis or radiculitis, unspecified Non-seasonal allergic rhinitis, unspecified trigger Type 2 diabetes mellitus with unspecified complications Anxiety and depression ([facility])- Primary Morbid (severe) obesity due to excess calories ([facility]) Body mass index (BMI) 50.0-59.9, adult ([facility]) Malignant neoplasm of cervix uteri, unspecified Diabetic polyneuropathy associated with type 2 diabetes mellitus ([facility] Chronic diastolic heart failure ([facility]) Chronic diastolic heart failure Primary hypertension ([facility]) Unspecified essential hypertension 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 Gastroesophageal reflux disease, unspecified whether esophagitis present Bilateral lower extremity edema Type 2 diabetes mellitus with complication, with long-term current use of insulin ([facility] Tobacco user Tobacco use disorder Mixed hyperlipidemia ([facility]) Mixed hyperlipidemia Gout, unspecified cause, unspecified chronicity, unspecified site Vitamin deficiency Unspecified vitamin deficiency Gastro-esophageal reflux disease without esophagitis Edema, unspecified Edema Hyperlipidemia, unspecified ([facility]) Encounter for smoking cessation counseling Venous ulcer of right leg ([facility]) Antibiotic-induced yeast infection Primary hypertension ([facility])- Primary Unspecified essential hypertension Diabetic polyneuropathy associated with type 2 diabetes mellitus ([facility] Chronic diastolic heart failure ([facility]) Chronic diastolic heart failure Bilateral lower extremity edema Morbid (severe) obesity due to excess calories ([facility]) Type 2 diabetes mellitus with complication, with long-term current use of insulin ([facility]) Anxiety and depression ([facility] Cigarette nicotine dependence without complication Encounter for screening mammogram for malignant neoplasm of breast Insomnia Insomnia, unspecified Non-seasonal allergic rhinitis, unspecified trigger Type 2 diabetes mellitus with unspecified complications Vitamin D deficiency, unspecified Gastro-esophageal reflux disease without esophagitis PAD (peripheral artery disease) ([facility]) Unspecified peripheral vascular disease Gastroesophageal reflux disease, unspecified whether esophagitis present Venous ulcer of right leg ([facility]) documented in this encounter [facility] HealthcareEvaluation note* Diagnosis Obstructive sleep apnea- Primary Obstructive sleep apnea (adult) (pediatric) Pulmonary emphysema, unspecified emphysema type (HCC) Primary hypertension Unspecified essential hypertension Type 2 diabetes mellitus with complication, with long-term current use of insulin ([facility]) Anxiety and depression Bilateral lower extremity edema Pulmonary emphysema, unspecified emphysema type (HCC)- Primary Primary hypertension Unspecified essential hypertension Class 3 severe obesity with serious comorbidity and body mass index (BMI) of 50.0 to 59.9 in adult, unspecified obesity type ([facility]) Obstructive sleep apnea Obstructive sleep apnea (adult) (pediatric) Pulmonary hypertension (HCC) Other chronic pulmonary heart diseases Tobacco user Tobacco use disorder Cardiomegaly Primary hypertension- Primary Unspecified essential hypertension Gastroesophageal reflux disease, unspecified whether esophagitis present Type 2 diabetes mellitus with complication, with long-term current use of insulin ([facility]) Mixed hyperlipidemia Mixed hyperlipidemia Tobacco user [...] to 59.9 in adult, unspecified obesity type ([facility]) Encounter for subsequent annual wellness visit (AWV) in Medicare patient- Primary Type 2 diabetes mellitus with unspecified complications (HCC) Pulmonary emphysema, unspecified emphysema type (HCC) Moderate persistent asthma without complication (HCC) Primary hypertension Unspecified essential hypertension Type 2 diabetes mellitus with complication, with long-term current use of insulin ([facility]) Class 3 severe obesity with serious comorbidity and body mass index (BMI) of 50.0 to 59.9 in adult, unspecified obesity type ([facility]) Tobacco user Tobacco use disorder Other [...] associated with type 2 diabetes mellitus ([facility]) Pulmonary emphysema, unspecified emphysema type ([facility]) Critical limb ischemia of right lower extremity ([facility]) PAD (peripheral artery disease) Unspecified peripheral vascular disease Gastroesophageal reflux disease, unspecified whether esophagitis present Bilateral lower extremity edema Venous ulcer of right leg ([facility]) Type 2 diabetes mellitus with complication, with long-term current use of insulin ([facility]) Tobacco user Tobacco use disorder Encounter for smoking cessation counseling Kidney stone Calculus of kidney Adrenal mass 1 cm to 4 cm in diameter ([facility]) Radiculopathy, lumbar region Thoracic or lumbosacral neuritis or radiculitis, unspecified Non-seasonal allergic rhinitis, unspecified trigger Type 2 diabetes mellitus with unspecified complications ([facility]) Anxiety and depression- Primary Morbid (severe) obesity due to excess calories ([facility]) Body mass index (BMI) 50.0-59.9, adult ([facility]) Malignant neoplasm of cervix uteri, unspecified ([facility]) Diabetic polyneuropathy associated with type 2 diabetes mellitus ([facility]) Chronic diastolic heart failure (HCC) Chronic diastolic heart failure Primary hypertension Unspecified essential hypertension 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 ([facility]) Gastroesophageal reflux disease, unspecified whether esophagitis present Bilateral lower extremity edema Type 2 diabetes mellitus with complication, with long-term current use of insulin ([facility]) Tobacco user Tobacco use disorder Mixed hyperlipidemia Mixed hyperlipidemia Gout, unspecified cause, unspecified chronicity, unspecified site Vitamin deficiency Unspecified vitamin deficiency Gastro-esophageal reflux disease without esophagitis Edema, unspecified Edema Hyperlipidemia, unspecified Encounter for smoking cessation counseling Venous ulcer of right leg ([facility]) Antibiotic-induced yeast infection Primary hypertension- Primary Unspecified essential hypertension Diabetic polyneuropathy associated with type 2 diabetes mellitus (HCC) Chronic diastolic heart failure (HCC) Chronic diastolic heart failure Bilateral lower extremity edema Morbid (severe) obesity due to excess calories ([facility]) Type 2 diabetes mellitus with complication, with long-term current use of insulin ([facility]) Anxiety and depression Cigarette nicotine dependence without complication Encounter for screening mammogram for malignant neoplasm of breast Insomnia Insomnia, unspecified Non-seasonal allergic rhinitis, unspecified trigger Type 2 diabetes mellitus with unspecified complications ([facility]) Vitamin D deficiency, unspecified Gastro-esophageal reflux disease without esophagitis PAD (peripheral artery disease) Unspecified peripheral vascular disease Gastroesophageal reflux disease, unspecified whether esophagitis present Venous ulcer of right leg ([facility]) Cellulitis of left lower extremity- Primary COPD exacerbation (HCC) Obstructive chronic bronchitis with exacerbation Primary hypertension Unspecified essential hypertension Pulmonary hypertension (HCC) Other chronic pulmonary heart diseases Morbid (severe) obesity due to excess calories ([facility]) Type 2 diabetes mellitus with complication, with long-term current use of insulin ([facility]) Anxiety and depression Fever, unspecified fever cause Hyperlipidemia, unspecified Tobacco user Tobacco use disorder Encounter for smoking cessation counseling documented in this encounter [facility] HealthcareEvaluation note* Diagnosis Obstructive sleep apnea- Primary Obstructive sleep apnea (adult) (pediatric) Pulmonary emphysema, unspecified emphysema type ([facility]) Primary hypertension ([facility]) Unspecified essential hypertension Type 2 diabetes mellitus with complication, with long-term current use of insulin ([facility]) Anxiety and depression ([facility]) Bilateral lower extremity edema Pulmonary emphysema, unspecified emphysema type ([facility]/H[facility])- Primary Primary hypertension ([facility]) Unspecified essential hypertension Class 3 severe obesity with serious comorbidity and body mass index (BMI) of 50.0 to 59.9 in adult, unspecified obesity type Obstructive sleep apnea Obstructive sleep apnea (adult) (pediatric) Pulmonary hypertension ([facility]) Other chronic pulmonary heart diseases Tobacco user Tobacco use disorder Cardiomegaly Primary hypertension ([facility])- Primary Unspecified essential hypertension Gastroesophageal reflux disease, unspecified whether esophagitis present Type 2 diabetes mellitus with complication, with long-term current use of insulin ([facility]) Mixed hyperlipidemia ([facility]) Mixed hyperlipidemia Tobacco user Tobacco use disorder Encounter for screening mammogram for malignant neoplasm of breast Chronic obstructive pulmonary disease, unspecified Other specified chronic obstructive pulmonary disease Anxiety and depression ([facility]) Edema, unspecified Edema Hyperlipidemia, unspecified ([facility]) Diabetic polyneuropathy associated with type 2 diabetes mellitus ([facility]) Gout, unspecified cause, unspecified chronicity, unspecified site Non-seasonal allergic rhinitis, unspecified trigger Bilateral lower extremity edema COPD exacerbation ([facility]) Obstructive chronic bronchitis with exacerbation Pulmonary emphysema, unspecified emphysema type ([facility] Venous insufficiency Unspecified venous (peripheral) insufficiency Candidiasis of breast COPD exacerbation ([facility])- Primary Obstructive chronic bronchitis with exacerbation Pulmonary hypertension ([facility]) Other chronic pulmonary heart diseases Class 3 severe obesity with serious comorbidity and body mass index (BMI) of 50.0 to 59.9 in adult, unspecified obesity type Encounter for subsequent annual wellness visit (AWV) in Medicare patient- Primary Type 2 diabetes mellitus with unspecified complications Pulmonary emphysema, unspecified emphysema type ([facility]) Moderate persistent asthma without complication ([facility]) Primary hypertension ([facility]) Unspecified essential hypertension Type 2 diabetes mellitus with complication, with long-term current use of insulin ([facility]) Class 3 severe obesity with serious comorbidity and body mass index (BMI) of 50.0 to 59.9 in adult, unspecified obesity type Tobacco user Tobacco use disorder Other headache syndrome Malignant neoplasm of cervix uteri, unspecified Other specified disorders of adrenal gland Major depressive disorder, single episode, mild (HCC) ([facility]) Major depressive disorder, single episode, mild 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 exposed Chronic respiratory failure, unspecified whether with hypoxia or hypercapnia Disorder of adrenal gland, unspecified Non-pressure chronic ulcer of other part of right lower leg limited to breakdown of skin ([facility]) Non-recurrent acute suppurative otitis media of left ear without spontaneous rupture of tympanic membrane Primary hypertension ([facility])- Primary Unspecified essential hypertension Insomnia Insomnia, unspecified Type 2 diabetes mellitus with complication, with long-term current use of insulin ([facility]) Non-seasonal allergic rhinitis, unspecified trigger Type 2 diabetes mellitus with unspecified complications Anxiety and depression ([facility]) Gastro-esophageal reflux disease without esophagitis Edema, unspecified Edema Diabetic polyneuropathy associated with type 2 diabetes mellitus ([facility]) Chronic obstructive pulmonary disease, unspecified Pulmonary emphysema, unspecified emphysema type (CMS/HCC) Bilateral lower extremity edema Tobacco user Tobacco use disorder Hyperpigmentation of skin Other dyschromia Primary hypertension (CMS/[facility])- Primary Unspecified essential hypertension Diabetic polyneuropathy associated with type 2 diabetes mellitus (CMS/[facility]) Pulmonary emphysema, unspecified emphysema type ([facility]/HCC) Critical limb ischemia of right lower extremity ([facility]) PAD (peripheral artery disease) ([facility]) Unspecified peripheral vascular disease Gastroesophageal reflux disease, unspecified whether esophagitis present Bilateral lower extremity edema Venous ulcer of right leg ([facility]) Type 2 diabetes mellitus with complication, with long-term current use of insulin ([facility]) Tobacco user Tobacco use disorder Encounter for smoking cessation counseling Kidney stone Calculus of kidney Adrenal mass 1 cm to 4 cm in diameter ([facility]) Radiculopathy, lumbar region Thoracic or lumbosacral neuritis or radiculitis, unspecified Non-seasonal allergic rhinitis, unspecified trigger Type 2 diabetes mellitus with unspecified complications Anxiety and depression ([facility])- Primary Morbid (severe) obesity due to excess calories ([facility]) Body mass index (BMI) 50.0-59.9, adult ([facility]) Malignant neoplasm of cervix uteri, unspecified Diabetic polyneuropathy associated with type 2 diabetes mellitus ([facility] Chronic diastolic heart failure ([facility]) Chronic diastolic heart failure Primary hypertension ([facility]) Unspecified essential hypertension 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 Gastroesophageal reflux disease, unspecified whether esophagitis present Bilateral lower extremity edema Type 2 diabetes mellitus with complication, with long-term current use of insulin ([facility]) Tobacco user Tobacco use disorder Mixed hyperlipidemia ([facility]) Mixed hyperlipidemia Gout, unspecified cause, unspecified chronicity, unspecified site Vitamin deficiency Unspecified vitamin deficiency Gastro-esophageal reflux disease without esophagitis Edema, unspecified Edema Hyperlipidemia, unspecified ([facility]) Encounter for smoking cessation counseling Venous ulcer of right leg ([facility]) Antibiotic-induced yeast infection Primary hypertension ([facility])- Primary Unspecified essential hypertension Diabetic polyneuropathy associated with type 2 diabetes mellitus ([facility] Chronic diastolic heart failure ([facility]) Chronic diastolic heart failure Bilateral lower extremity edema Morbid (severe) obesity due to excess calories ([facility]) Type 2 diabetes mellitus with complication, with long-term current use of insulin ([facility]) Anxiety and depression ([facility]) Cigarette nicotine dependence without complication Encounter for screening mammogram for malignant neoplasm of breast Insomnia Insomnia, unspecified Non-seasonal allergic rhinitis, unspecified trigger Type 2 diabetes mellitus with unspecified complications Vitamin D deficiency, unspecified Gastro-esophageal reflux disease without esophagitis PAD (peripheral artery disease) ([facility]) Unspecified peripheral vascular disease Gastroesophageal reflux disease, unspecified whether esophagitis present Venous ulcer of right leg ([facility]) Cellulitis of left lower extremity- Primary COPD exacerbation ([facility]) Obstructive chronic bronchitis with exacerbation Primary hypertension ([facility]) Unspecified essential hypertension Pulmonary hypertension ([facility]) Other chronic pulmonary heart diseases Morbid (severe) obesity due to excess calories (CMS/HCC) Type 2 diabetes mellitus with complication, with long-term current use of insulin (CMS/HCC) Anxiety and depression ([facility]) Fever, unspecified fever cause documented in [...] to 59.9 in adult, unspecified obesity type ([facility]) Obstructive sleep apnea Obstructive sleep [...] to 59.9 in adult, unspecified obesity type ([facility]) Encounter for subsequent annual wellness visit [...] to 59.9 in adult, unspecified obesity type ([facility]) Tobacco user Tobacco use disorder Other headache syndrome Malignant neoplasm of cervix uteri, unspecified ([facility]) Other specified disorders of adrenal gland ([facility]) Major depressive disorder, single episode, mild Major depressive disorder, single episode, mild 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 exposed ([facility]) Chronic respiratory failure, unspecified whether with hypoxia or hypercapnia ([facility]) Disorder of adrenal gland, unspecified ([facility]) Non-pressure chronic ulcer of other part of right lower leg limited to breakdown of skin ([facility]) Non-recurrent acute suppurative otitis media of left ear without spontaneous rupture of tympanic membrane Primary hypertension- Primary Unspecified essential hypertension Insomnia Insomnia, unspecified Type 2 diabetes mellitus with complication, with long-term current use of insulin ([facility]) Non-seasonal allergic rhinitis, unspecified trigger Type 2 diabetes mellitus with unspecified complications ([facility]) Anxiety and depression Gastro-esophageal reflux disease without esophagitis Edema, unspecified Edema Diabetic polyneuropathy associated with type 2 diabetes mellitus ([facility]) Chronic obstructive pulmonary disease, unspecified ([facility]) Pulmonary emphysema, unspecified emphysema type ([facility]) Bilateral lower extremity edema Tobacco user Tobacco use disorder Hyperpigmentation of skin Other dyschromia Primary hypertension- Primary Unspecified essential hypertension Diabetic polyneuropathy associated with type 2 diabetes mellitus ([facility]) Pulmonary emphysema, unspecified emphysema type ([facility]) Critical limb ischemia of right lower extremity ([facility]) PAD (peripheral artery disease) Unspecified peripheral vascular disease Gastroesophageal reflux disease, unspecified whether esophagitis present Bilateral lower extremity edema Venous ulcer of right leg ([facility]) Type 2 diabetes mellitus with complication, with long-term current use of insulin ([facility]) Tobacco user Tobacco use disorder Encounter for smoking cessation counseling Kidney stone Calculus of kidney Adrenal mass 1 cm to 4 cm in diameter ([facility]) Radiculopathy, lumbar region Thoracic or lumbosacral neuritis or radiculitis, unspecified Non-seasonal allergic rhinitis, unspecified trigger Type 2 diabetes mellitus with unspecified complications ([facility]) Anxiety and depression- Primary Morbid (severe) obesity due to excess calories ([facility]) Body mass index (BMI) 50.0-59.9, adult ([facility]) Malignant neoplasm of cervix uteri, unspecified ([facility]) Diabetic polyneuropathy associated with type 2 diabetes mellitus ([facility]) Chronic diastolic heart failure (HCC) Chronic [...] Morbid (severe) obesity due to excess calories ([facility]) Type 2 diabetes mellitus with complication, [...] Morbid (severe) obesity due to excess calories ([facility]) Type 2 diabetes mellitus with complication, [...] associated with type 2 diabetes mellitus ([facility]) Pulmonary emphysema, unspecified emphysema type ([facility]) Moderate persistent asthma without complication (HCC) Insomnia Insomnia, unspecified Non-seasonal allergic rhinitis, unspecified trigger Type 2 diabetes mellitus with unspecified complications (HCC) Anxiety and depression Antibiotic-induced yeast infection Chronic obstructive pulmonary disease, unspecified (HCC) Hyperlipidemia, unspecified Vaginal yeast infection Candidiasis of vulva and vagina Morbid (severe) obesity due to excess calories ([facility]) Type 2 diabetes mellitus with hyperglycemia, with long-term current use of insulin (HCC) documented in this encounter [facility] HealthcareEvaluation note* Diagnosis Obstructive sleep apnea- [...] to 59.9 in adult, unspecified obesity type ([facility]) Obstructive sleep apnea Obstructive sleep [...] to 59.9 in adult, unspecified obesity type ([facility]) Encounter for subsequent annual wellness visit [...] to 59.9 in adult, unspecified obesity type ([facility]) Tobacco user Tobacco use disorder Other headache syndrome Malignant neoplasm of cervix uteri, unspecified (HCC) Other specified disorders of adrenal gland ([facility]) Major depressive disorder, single episode, mild Major depressive disorder, single episode, mild 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 exposed ([facility]) Chronic respiratory failure, unspecified whether with hypoxia or hypercapnia ([facility]) Disorder of adrenal gland, unspecified ([facility]) Non-pressure chronic ulcer of other part of right lower leg limited to breakdown of skin ([facility]) Non-recurrent acute suppurative otitis media of left ear without spontaneous rupture of tympanic membrane Primary hypertension- Primary Unspecified essential hypertension Insomnia Insomnia, unspecified Type 2 diabetes mellitus with complication, with long-term current use of insulin ([facility]) Non-seasonal allergic rhinitis, unspecified trigger Type 2 diabetes mellitus with unspecified complications ([facility]) Anxiety and depression Gastro-esophageal reflux disease without esophagitis Edema, unspecified Edema Diabetic polyneuropathy associated with type 2 diabetes mellitus ([facility]) Chronic obstructive pulmonary disease, unspecified ([facility]) Pulmonary emphysema, unspecified emphysema type ([facility]) Bilateral lower extremity edema Tobacco user Tobacco use disorder Hyperpigmentation of skin Other dyschromia Primary hypertension- Primary Unspecified essential hypertension Diabetic polyneuropathy associated with type 2 diabetes mellitus ([facility]) Pulmonary emphysema, unspecified emphysema type ([facility]) Critical limb ischemia of right lower extremity ([facility]) PAD (peripheral artery disease) Unspecified peripheral vascular disease Gastroesophageal reflux disease, unspecified whether esophagitis present Bilateral lower extremity edema Venous ulcer of right leg ([facility]) Type 2 diabetes mellitus with complication, with long-term current use of insulin ([facility]) Tobacco user Tobacco use disorder Encounter for smoking cessation counseling Kidney stone Calculus of kidney Adrenal mass 1 cm to 4 cm in diameter ([facility]) Radiculopathy, lumbar region Thoracic or lumbosacral neuritis or radiculitis, unspecified Non-seasonal allergic rhinitis, unspecified trigger Type 2 diabetes mellitus with unspecified complications ([facility]) Anxiety and depression- Primary Morbid (severe) obesity due to excess calories ([facility]) Body mass index (BMI) 50.0-59.9, adult ([facility]) Malignant neoplasm of cervix uteri, unspecified ([facility]) Diabetic polyneuropathy associated with type 2 diabetes mellitus ([facility]) Chronic diastolic heart failure (HCC) Chronic [...] Morbid (severe) obesity due to excess calories ([facility]) Type 2 diabetes mellitus with complication, [...] Morbid (severe) obesity due to excess calories ([facility]) Type 2 diabetes mellitus with complication, [...] Morbid (severe) obesity due to excess calories ([facility]) Encounter for dietary consultation- Primary Type 2 diabetes mellitus with hyperglycemia, with long-term current use of insulin (HCC) Vitamin D deficiency Primary hypertension Unspecified essential hypertension Insulin long-term use ([facility]) Encounter for long-term (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 Hyperlipemia, mixed Mixed hyperlipidemia Microalbuminuria Proteinuria Class 3 severe obesity due to excess calories with serious comorbidity and body mass index (BMI) of 50.0 to 59.9 in adult ([facility]) documented in this encounter [facility] Healthcare[facility] [...] History sepsis 2010 Hospitalization History SEE ABOVE [employer] Other Hospital course Narrative No data available for this section [facility] progress note No data available for this section [facility] reason for referral (narrative) , Referral to Dr. 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 Summary Purpose Family History No Family History Records FoundNo Family History Records FoundNo Family History Records FoundNo Family History Records Found No data available for this section No Family History Records FoundNo Family History Records Found Additional Source Comments INFORMATION SOURCE (unrecogn ized section and content) DATE CREATED AUTHOR 10/30/2019 [facility] DATE CREATED AUTHOR AUTHOR'S ORGANIZ ATION 09/15/2020 [facility] DATE CREATED AUTHOR AUTHOR'S ORGANIZ ATION 12/19/2022 [facility] DATE CREATED AUTHOR AUTHOR'S ORGANIZ ATION 06/03/2024 [facility] DATE CREATED AUTHOR AUTHOR'S ORGANIZ ATION 01/30/2025 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 Relationship Specialty Start Date End Date Ty Amin MD [address] [place] [phone] PCP - General Family Medicine 09/20/23 Mckayla Blas NP [address] [place] [phone] PCP - [facility] 09/07/23 09/05/90 Mckayla Blas NP [address] [place] [address] Nurse Practitioner Family Medicine 09/20/23 Manager Mining Relationship Specialty Start Date End Date Ty Amin MD [address] [place] [phone] PCP - General Family Medicine 09/20/23 Mckayla Blas NP [address] [place] [phone] PCP - [facility] 09/07/23 09/05/90 Mckayla Blas NP [address] [place] [address] Nurse Practitioner Family Medicine 09/20/23 Manager Mining Relationship Specialty Start Date End Date Ty Amin MD [address] [place] [address] PCP - General Family Medicine 09/20/23 Mckayla Blas NP [address] [place] [phone] PCP [facility] 09/07/23 09/05/90 Mckayla Blas NP [address] [place] [address] Nurse Practitioner Family Medicine 09/20/23 Manager Mining Relationship Specialty Start Date End Date Ty Amin MD [address] [place] [phone] PCP - General Family [facility] 09/20/23 Mckayla Blas NP [address] [place] [address] PCP [facility] 09/07/23 09/05/90 Mckayla Blas NP [address] [place] [address] Nurse Practitioner Family Medicine 09/20/23 Manager Mining Relationship Specialty Start Date End Date Ty Amin MD [address] [place] [address] PCP - General Family Medicine 09/20/23 Mckayla Blas NP [address] [place] [address] PCP - [facility] 09/07/23 09/05/90 Mckayla Blas NP [address] [place] [address] Nurse Practitioner Family Medicine 09/20/23 Manager Mining Relationship Specialty Start Date End Date Ty Amin MD [address] [place] [address] PCP - General Family Medicine 09/20/23 Mckayla Blas NP [address] [place] [address] [facility] 09/07/23 09/05/90 Mckayla Blas NP [address] [place] [address] Nurse Practitioner Family Medicine 09/20/23 Manager Mining Relationship Specialty Start Date End Date Ty Amin MD [address] [place] [address] PCP - General Family Medicine 09/20/23 Mckayla Blas NP [address] [place] [address] [facility] 09/07/23 09/05/90 Mckayla Blas NP [address] [place] [address] Nurse Practitioner Family Medicine 09/20/23 Manager Mining Relationship Specialty Start Date End Date Ty Amin MD [address] [place] [address] PCP - General Family Medicine 09/20/23 Mckayla Blas NP [address] [place] [address] PCP [facility] 09/07/23 09/05/90 Mckayla Blas NP [address] [place] [address] Nurse Practitioner Family Medicine 09/20/23 Manager Mining Relationship Specialty Start Date End Date Ty Amin MD [address] [place] [address] PCP - General Family [facility] 09/20/23 Mckayla Blas NP [address] [place] [address] PCP [facility] 09/07/23 09/05/90 Mckayla Blas NP [address] [place] [address] Nurse Practitioner Family Medicine 09/20/23 Manager Mining Relationship Specialty Start Date End Date Ty Amin MD [address] [place] [address] PCP - General Family Medicine 09/20/23 Mckayla Blas NP [address] [place] [address] PCP - [facility] 09/07/23 09/05/90 Mckayla Blas NP [address] [place] [address] Nurse Practitioner Family Medicine 09/20/23 Manager Mining Relationship Specialty Start Date End Date Ty Amin MD [address] [place] [address] PCP - General Family Medicine 09/20/23 Mckayla Blas NP [address] [place] [address] [facility] 09/07/23 09/05/90 Mckayla Blas NP [address] [place] [address] Nurse Practitioner Family Medicine 09/20/23 Manager Mining Relationship Specialty Start Date End Date Ty Amin MD [address] [place] [address] PCP - General Family Medicine 09/20/23 Mckayla Blas NP [address] [place] [address] [facility] 09/07/23 09/05/90 Mckayla Blas NP [address] [place] [address] Nurse Practitioner Family Medicine 09/20/23 Manager Mining Relationship Specialty Start Date End Date Ty Amin MD [address] [place] [address] PCP - General Family Medicine 09/20/23 Mckayla Blas NP [address] [place] [address] PCP [facility] 09/07/23 09/05/90 Mckayla Blas NP [address] [place] [address] Nurse Practitioner Family Medicine 09/20/23 Manager Mining Relationship Specialty Start Date End Date Ty Amin MD [address] [place] [address] PCP - General Family [facility] 09/20/23 Mckayla Blas NP [address] [place] [address] PCP [facility] 09/07/23 09/05/90 Mckayla Blas NP [address] [place] [address]1002 Nurse Practitioner Family Medicine 09/20/23 Manager Mining Relationship Specialty Start Date End Date Ty Amin MD [address] [place] [address] PCP - General Family Medicine 09/20/23 Mckayla Blas NP [address] [place] [address] PCP - [facility] 09/07/23 09/05/90 Mckayla Blas NP [address] [place] [address] Nurse Practitioner Family Medicine 09/20/23 Manager Mining Relationship Specialty Start Date End Date Ty Amin MD [address] [place] [address] PCP - General Family Medicine 09/20/23 Mckayla Blas NP [address] [place] [address] [facility] 09/07/23 09/05/90 Mckayla Blas NP [address] [place] [address] Nurse Practitioner Family Medicine 09/20/23 Manager Mining Relationship Specialty Start Date End Date Ty Amin MD [address] [place] [address] PCP - General Family Medicine 09/20/23 Mckayla Blas NP [address] [place] [address] [facility] 09/07/23 09/05/90 Mckayla Blas NP [address] [place] [address] Nurse Practitioner Family Medicine 09/20/23 Manager Mining Relationship Specialty Start Date End Date Ty Amin MD [address] [place] [address] PCP - General Family Medicine 09/20/23 Mckayla Blas NP [address] [place] [address] PCP [facility] 09/07/23 09/05/90 Mckayla Blas NP [address] [place] [address] Nurse Practitioner Family Medicine 09/20/23 Manager Mining Relationship Specialty Start Date End Date Ty Amin MD [address] [place] [address] PCP - General Family [facility] 09/20/23 Mckayla Blas NP [address] [place] [address] PCP [facility] 09/07/23 09/05/90 Mckayla Blas NP [address] [place] [address] Nurse Practitioner Family Medicine 09/20/23 Manager Mining Relationship Specialty Start Date End Date Ty Amin MD [address] [place] [address] PCP - General Family Medicine 09/20/23 Mckayla Blas NP [address] [place] [address] PCP - [facility] 09/07/23 09/05/90 Mckayla Blas NP [address] [place] [address] Nurse Practitioner Family Medicine 09/20/23 Manager Mining Relationship Specialty Start Date End Date Ty Amin MD [address] [place] [address] PCP - General Family Medicine 09/20/23 Mckayla Blas NP [address] [place] [address] Nurse Practitioner Family Medicine 09/20/23 Manager Mining Relationship Specialty Start Date End Date Ty Amin MD [address] [place] [address] PCP - General Family Medicine 09/20/23 Mckayla Blas NP [address] [place] [address] Nurse Practitioner Family Medicine 09/20/23 Manager Mining Relationship Specialty Start Date End Date Ty Amin MD [address] [place] [address] PCP - General Family Medicine 09/20/23 Mckayla Blas NP [address] [place] [address] Nurse Practitioner Family Medicine 09/20/23 Manager Mining Relationship Specialty Start Date End Date Ty Amin MD [address] [place] [address] PCP - General Family Medicine 09/20/23 Mckayla Blas NP [address] [place] [address] Nurse Practitioner Family Medicine 09/20/23 REASON [...] BE BASED ON THE PRIMARY CLINICAL RECORDS. [employer] [facility]. provides no warranty or guarantee of the accuracy or completeness of information in this document.
== END 2025-02-25 13:14 | disposition home or self-care (01) ==
LOC: WC 13:13
PROVIDERS: PCP Nurse Practitioner; Visit Provider Physician Assistant
DX: I87.311 Chronic venous hypertension (idiopathic) with ulcer of right lower extremity (principal); L97.812 Non-pressure chronic ulcer of other part of right lower leg with fat layer exposed
CPT/HCPCS: 29581

== ENCOUNTER 2025-02-27 11:00 | Outpatient (OUT) | payer MEDICARE, SELFPAY ==
--- OUTSIDE RECORDS SUMMARY | 2024-04-07 05:07 | XMS_ITS ---
Author Organization The [facility] in [place] Address [address] [place] [address] Care Team Providers Care Registered Dental Assistant Name Role Phone Mckayla Blas CNP Primary Care Provider Armando Limon Unavailable [phone] REASON FOR VISIT Varenicline Tartrate (Starter) Refill Request Encounters Encounter Location Date Provider Diagnosis Pulmonary Medicine [place] [address] [place] [address] 04/07/2024 Armando Yañez Plan Of Treatment No Information Progress Notes * Mitzi MACIAS LDOB:[birth year] (53 yo F)Acc No.[id number]:04/07/2024 Patient: Mitzi COX :1970 A ge:53 Y S ex:Female Address:[address] [place] [phone] * true * Date: Generated for Tiffanyi terrence/Falupeg/eTransmitting on: 0 03/02/2025 08:54 AM EDT
--- OUTSIDE RECORDS SUMMARY | 2024-12-02 05:30 | XMS_ITS ---
Author Organization The [facility] in [place] Address [address] [place] [address] Care Team Providers Care Pearl Glue Operator Name Role Phone Mckayla Blas CNP Primary Care Provider Armando Limon Unavailable [phone] REASON FOR VISIT 1YEAR-COPD Encounters Encounter Location Date Provider Diagnosis Pulmonary Medicine [place] [address] [place] [address] 12/02/2024 Armando Yañez Plan Of Treatment No Information Progress Notes * Mitzi MACIAS LDOB:[birth year] (54 yo F)Acc No.[id number]:12/02/2024 UNLOCKED PROGRESS NOTE Follow Up Patient: Mitzi COX Provider: Tray Yañez DO :1970 A ge:54 Y S ex:Female Date:12/02/2024 Address:[address] [place], [place] [address] Pcp:Mckayla Blas CNP Subjective: * Chief Complaints: * 1 . 1YEAR-COPD. * Medical History: Objective: * Vitals: Assessment: Plan: * Treatment: * * Electronic signature of Radha Yañez DO on 03/02/2025 at 08:57 AM EDT Sign off status: Pending Visit Status: N /S N/C (No Show/No Charge) * Provider: Tray Yañez DO Date: 0 12/02/2024 Generated for Vanessa ocampo/Luis/eTransmitting on: 0 03/02/2025 08:57 AM EDT
--- OUTSIDE RECORDS SUMMARY | 2024-12-02 05:47 | XMS_ITS ---
Author Organization The [facility] in [place] Address [address] [place] [address] Care Team Providers Care Machine Set Up Name Role Phone Mckayla Blas CNP Primary Care Provider Armando Limon [phone] REASON FOR VISIT No Show Appointment Encounters Encounter Location Date Provider Diagnosis Pulmonary Medicine [place] [address] [place] [address] 12/02/2024 Armando Yañez Plan Of Treatment No Information Progress Notes * MACIASMitzi CARPIO LDOB:[birth year] (54 yo F)Acc No.[id number]:12/02/2024 Patient: Mitzi COX :1970 A ge:54 Y S ex:Female Address:[address] [place] [address] * true * Date: Generated for Tiffanyi terrence/Luis/eTransmitting on: 0 03/02/2025 08:55 AM EDT
--- OUTSIDE RECORDS SUMMARY | 2025-03-02 08:54 | XMS_ITS | Encounter Summary ---
Author Organization [facility] Address [address] [place] [address] Care Team Providers Care Special Education Inclusion Teacher Name Role Phone Ty Amin MD Primary Care Provider [phone] Ty Amin MD Primary Care Provider [phone] Mckayla Blas DIETARY AID Unavailable [phone] Mckayla Blas DIETARY AID Unavailable [phone] Encounter Details Date Type Department Care Team (Late st Contact Info) Description 09/12/2023 Orders Only [facility] [address] [place] [address] Social History Tobacco Use Types Packs/Day Years [...] How often do you attend chur or mu-ism services? 1 to 4 times [...] Recorded Patient Health Questionnaire-2 Score 2 07/10/2023 [facility] of Occupat ional Health - [...] Visit [facility] [address] [place] [address] Mckayla Blas, SILVANO [address] [place] [address] 05/28/2025 10:30 AM EST Office Visit [facility] [address] [place] [address] Rain Souza MD [address] [place] [address] 02/01/2026 6:00 PM EDT Office Visit [facility] [address] [place] [address] Mckayla Blas NP [address] [place] [address] documented as of this encounter Procedures Procedure Name Priority Date/Time Associated Diagnosis Comments XR CHEST 1 VIEW Routine 09/11/2023 4:52 PM EST documented in this encounter Results * XR chest 1 view (09/11/2023 4:52 PM EST) Anatomical Region Laterality Modality Chest Radiographic Kalani ging [facility] IMG XR PROCEDURES Final Result documented in this encounter Visit Diagnoses Not on filedocumented in this encounter Care Teams Special Education Inclusion Teacher Relationship Specialty Start Date End Date Ty Amin MD PCP - General Family Medicine 01/05/23 09/19/23 Ty Amin MD [address] [place] [address] PCP - General Family Medicine 09/20/23 Mckayla Blas NP [address] [place] [address] PCP - [facility] 09/07/23 01/11/25 Mckayla Blas NP [address] [place] [address] Nurse Practitioner Family Medicine 09/20/23 documented as of this encounter
--- OUTSIDE RECORDS SUMMARY | 2025-03-02 08:54 | XMS_ITS | Encounter Summary ---
Author Organization [facility] Address [address] [place] [address] Care Team Providers Care Branch Associate Teller Name Role Phone Ty Amin MD Primary Care Provider [phone] Mckayla Blas NP Unavailable [phone] Encounter Details Date Type Department Care Team (Late st Contact Info) Description 02/18/2025 Abstract [facility] [address] [place] [address] Mckayla Blas, SUPERVISOR SHUTTLE VENEERING [address] [place] [address] Social History Tobacco Use Types Packs/Day Years [...] 08/26/2024 How often do you attend [facility] or taoism services? More than 4 times [...] Recorded Patient Health Questionnaire-2 Score 0 01/26/2025 [facility] of Occupat ional [...] in a fdc (including now)? No 07/10/2023 Housing Stability Vital Sign Answer Wilmer e Recorded In the last 12 months, was t here a time when you were not able to pay the mortgage or rent on time? No 08/26/2024 Number of Times Moved in the Last Year Not on fi le 08/26/2024 At any time in the past 12 m [facility], were you homeless or living in a fdc (including now)? No 08/26/2024 Comments Unknown Sex [...] Office Visit [facility] [address] [place] [address] Mckayla Blas NP [address] [place] [address] 05/28/2025 10:30 AM EST Office Visit [facility] [address] [place] [address] Rain Souza MD [address] [place] [address] 02/01/2026 6:00 PM EDT Office Visit [facility] [address] [place] [address] Mckayla Blas NP [address] [place] [address] documented as of this encounter Visit Diagnoses Not on filedocumented in this encounter Additional Health Concerns Assessment Noted Time PHQ-9 Depression Total Score: 3 01/17/20 24 10:08 AM EDT documented as of this encounter Care Teams Branch Associate Teller Relationship Specialty Start Date End Date Ty Amin MD [address] [place] [address] PCP - General Family Medicine 09/20/23 Mckayla Blas NP [address] [place] [address] Nurse Practitioner Family Medicine 09/20/23 documented as of this encounter
--- OUTSIDE RECORDS SUMMARY | 2025-03-02 08:54 | XMS_ITS | Encounter Summary ---
Author Organization [facility] s tem Address [id number] [address] [place] [address] Care Team Providers Care Third Officer Name Role Phone JuanjoseMckayla carcamo Krystal MARINE ELECTRICIAN HELPER-ADMINISTRATIVE ASSOCIATE Primary Care Provider Encounter Details Date Type Department Care Team (Late st Contact Info) Description 06/11/2020 Orders Only [facility] [address] [place] [address] External, Scanning Provider Social History Tobacco Use [...] on filedocumented in this encounter Care Teams Third Officer Relationship Specialty Start Date End Date Mckayla Blas, MARINE ELECTRICIAN HELPER-ADMINISTRATIVE ASSOCIATE [address] [place] [address] PCP - General Nurse Practitioner 09/25/18 documented as of this encounter
--- OUTSIDE RECORDS SUMMARY | 2025-03-02 08:54 | XMS_ITS | Encounter Summary ---
Author Organization [facility] Address [address] [place] [address] Care Team Providers Care Knot Tier Name Role Phone Ty Amin MD Primary Care Provider [phone] Ty Amin MD Primary Care Provider [phone] Mckayla Blas REFERRAL MANAGER Unavailable [phone] Mckayla Blas REFERRAL MANAGER Unavailable [phone] Encounter Details Date Type Department Care Team (Late st Contact Info) Description 08/31/2023 Clinisync Result Encounter [facility] External Department Unsolicited Andra Alcala PA [address] [place] [address] [address] [place], [place] [phone] Social History Tobacco Use Types Packs/Day Years [...] often do you attend chur ch or jewish services? 1 to 4 times per year [...] Score 2 07/10/2023 [facility] - Occupational Stress Questionnaire [...] Office Visit [facility] [address] [place] [address] Mckayla Blas NP [address] [place] [address] 05/28/2025 10:30 AM EST Office Visit [facility] [address] [place] [address] Rain Souza MD [address] [place] [address] 02/01/2026 6:00 PM EDT Office Visit [facility] [address] [place] [address] Mckayla Blas NP [address] [place] [address] documented as of this encounter Procedures Procedure [...] LAB BLOOD ORDERAB LES Final Result [facility] * BLOOD CULTURE 1 (09/10/2023 2:05 PM EST) BLOOD CULTURE 1 Blood Culture 1 NG5D NO GROWTH AT 5 DAYS.^NO GROWTH AT 5 DAYS. TB 09/10/2023 2:05 PM EST 09/10/2023 2:28 PM EST Narrative [facility] - 09/16/2023 1:07 PM EDT Generic External Data Provider LAB BLOOD ORDERAB LES Final Result [facility] * ECG 12-LEAD (08/31/2023 6:08 PM EST) Anatomical Region Laterality Modality Other 08/31/2023 6:08 PM EST Narrative 09/02/2023 7:32 AM EST [place] [id number] Electrocardiograph Report Signed Patient: MITZI MACIAS MR#: [id number] : 1970 Acct:[id number] Age/Sex: 53 / F ADM Date: 08/31/23 Loc: [place] 214-[address]: Jacqueline Becerra D.O. Ordering Physician: Andra Alcala Date of Service: 08/31/23 Procedure(s): ECG 12 lead Accession Number(s): [id number] cc: [facility] Test Date: 2023-08-31 Pat Name: MITZI MACIAS Department: Room: - Gender: Female Pusher Runner: : 1970 Requested By: MCKAYLA BLAS Order Number: [id number] Reading MD: LAURI DIOR Measurements Intervals [place] Rate: 102 P: 67 KS: 144 QRS: 52 QRSD: 72 T: 49 QT: 326 QTc: 385 Interpretive Statements 1120 Sinus tachycardia 4068 Nonspecific [place]ave abnormality 8102 Low QRS voltage in chest leads 9140 abnormal rhythm ECG Compared to ECG 12/04/2022 21:27:48 Electronically Signed On 09-02-2023 7:31:43 EST by LAURI DIOR Dictated By: Lauri Dior D.O. Signed By: 09/02/23 0732 DD/ 1808 TD/TT: Senior Web Analyst: Procedure Note Radiology, Radiologist, - 09/02/2023 The [place] [id number] Electrocardiograph Report Signed Patient: MITZI MACIAS R#: [id number] : 1970Acct:[id number] Age/Sex: 53 / FADM Date: 08/31/23 Loc: [place] 214-[address]: Jacqueline Becerra D.O. Ordering Physician: Andra Alcala Date of Service: 08/31/23 Procedure(s): ECG 12 lead Accession Number(s): [id number] cc: The [facility] Test Date: 2023-08-31 Pat Name: MITZI MACIAS Department: Room: - Gender: Female Pusher Runner: : 1970 Requested By: MCKAYLA BLAS Order Number: [id number] Reading MD: LAURI DIOR Measurements Intervals [place] Rate: 102 P: 67 KS: 144 QRS: 52 QRSD: 72 T: 49 QT: 326 QTc: 385 Interpretive Statements 1120 Sinus tachycardia 4068 Nonspecific Twave abnormality 8102 Low QRS voltage in chest leads 9140 abnormal rhythm ECG Compared to ECG 12/04/2022 21:27:48 Electronically Signed On 09-02-2023 7:31:43 EST by LAURI DIOR Dictated By: Lauri Dior D.O. Signed By:09/02/23 0732 DD/ 1808 TD/TT: Senior Web Analyst: Andra MAYERS [facility] Final Result documented in this encounter Visit Diagnoses Not on filedocumented in this encounter Care Teams Knot Tier Relationship Specialty Start Date End Date Ty Amin MD PCP - General Family Medicine 01/05/23 09/19/23 Ty Amin MD [address] [place] [address] PCP - General Family Medicine 09/20/23 Mckayla Blas NP [address] [place] [address] PCP - [facility] 09/07/23 01/11/25 Mckayla Blas NP [address] [place] [address] Nurse Practitioner Family Medicine 09/20/23 documented as of this encounter
--- OUTSIDE RECORDS SUMMARY | 2025-03-02 08:54 | XMS_ITS | Encounter Summary ---
Author Organization [facility] Address [address] [place] [address] Care Team Providers Care Hvac Mechanical Engineer Name Role Phone Ty Amin MD Primary Care Provider [phone] Mckayla Blas NP Unavailable [phone] Mckayla Blas NP Unavailable [phone] Encounter Details Date Type Department Care [...] Recorded Patient Health Questionnaire-2 Score 1 01/17/2024 [facility] of Occupat ional Health - Occupational Stress [...] Office Visit [facility] [address] [place] [address] Mckayla Blas NP [address] [place] [address] 05/28/2025 10:30 AM EST Office Visit [facility] [address] [place] [address] Rain Souza MD [address], [address] [place] [address] 02/01/2026 6:00 PM EDT Office Visit [facility] [address] [place] [address] Mckayla Blas, SILVANO [address] [place] [address] documented as of this encounter Procedures Procedure Name Priority Date/Time Associated Diagnosis Comments MR LUMBAR SPINE WO CON 05/12/2024 2:41 PM EST documented in this encounter Results * MR LUMBAR SPINE WO CON (05/12/2024 2:41 PM EST) Anatomical Region Laterality Modality Other 05/12/2024 2:41 PM EST Narrative 05/12/2024 2:43 [place] [address] Magnetic Resonance Report Signed Patient: MITZI MACIAS MR#: [id number] : 1970 Acct:[id number] Age/Sex: 53 / F ADM Date: 05/12/24 Loc: MRI Attending Dr: Celestina Chin NP Ordering Physician: Celestina Chin NP Date of Service: 05/12/24 Procedure(s): MR lumbar spine wo con Accession Number(s): [id number] cc: Mckayla Blas EXPLOSIVE ORDNANCE HANDLER; Celestina Chin NP [place] [id number] Patient Name: MITZI MACIAS MRN: [id number] date: 1970 Sex: F Assigned Patient Location: MRI Current Patient Location: CT Accession/Order Number: [id number] Exam Date: 05/12/2024 09:21 Report Date: 05/12/2024 [...] Signed By: 05/12/24 1443 DD/ 1441 TD/TT: Water/Wastewater Engineer: Procedure Note Radiology, Radiologist, MD - 05/12/2024 [place] [address] Magnetic Resonance Report Signed Patient: MITZI MACIAS R#: [id number] : 1970Acct:[id number] Age/Sex: 53 / FADM Date: 05/12/24 Loc: MRI Attending Dr: Celestina Chin NP Ordering Physician: Celestina Chin NP Date of Service: 05/12/24 Procedure(s): MR lumbar spine wo con Accession Number(s): [id number] cc: Mckayla Blas NP; Celestina Chin NP The [address] [address] Patient Name: MITZI MACIAS MRN: [facility]:[id number] date: 1970 Sex: F Assigned Patient Location: MRI Current Patient Location: CT Accession/Order Number: [id number] Exam Date: 05/12/2024 09:21 Report Date: 05/12/2024 [...] M.D. Signed By:05/12/24 1443 DD/ 1441 TD/TT: Water/Wastewater Engineer: us Generic External Data Provider [facility] Final Result documented in this encounter Visit Diagnoses Not on filedocumented in this encounter Additional Health Concerns Assessment Noted Time PHQ-9 Depression Total Score: 3 01/17/20 24 10:08 AM EDT documented as of this encounter Care Teams Hvac Mechanical Engineer Relationship Specialty Start Date End Date Ty Amin MD [address] [place] [address] PCP - General Family Medicine 09/20/23 Mckayla Blas NP [address] [place] [address] PCP - [facility] 09/07/23 01/11/25 Mckayla Blas NP [address] [place] [address] Nurse Practitioner Family Medicine 09/20/23 documented as of this encounter
--- OUTSIDE RECORDS SUMMARY | 2025-03-02 08:54 | XMS_ITS | Encounter Summary ---
Author Organization [facility] tem Address [id number] [address] [place] [address] Care Team Providers Care Slide Machine Tender Name Role Phone Mckayla Blas APRN-PIPE FITTER GAS PIPE Primary Care Provider Encounter Details Date Type Department Care Team (Late st Contact Info) Description 05/03/2020 [facility]phone [facility] [address] [place] [address] [address] Romero [address], [address] [id number] Social History Tobacco Use Types Packs/Day Years [...] on filedocumented in this encounter Care Teams Slide Machine Tender Relationship Specialty Start Date End Date Mckayla Blas [place]N-[place] [address] PCP - General Nurse Practitioner 09/25/18 documented as of this encounter
--- OUTSIDE RECORDS SUMMARY | 2025-03-02 08:54 | XMS_ITS | Encounter Summary ---
Author Organization [facility] Address [address] [place] [address] Care Team Providers Care Supervisor Solder Making Name Role Phone Ty Amin MD Primary Care Provider [phone] Mckayla Blas CENTRAL SERVICE TECHNICIAN Unavailable [phone] Mckayla Blas CENTRAL SERVICE TECHNICIAN Unavailable [phone] Encounter Details Date Type Department Care Team (Late st Contact Info) Description 07/14/2024 Orders Only [facility] [address] [place] [address] Mckayla Blas CENTRAL SERVICE TECHNICIAN [address] [place] [address] Social History Tobacco Use Types Packs/Day Years [...] any clubs o r organizations such as yazidi groups, unions, fraternal [...] Recorded Patient Health Questionnaire-2 Score 1 01/17/2024 [facility] of Occupat ional [...] Office Visit [facility] [address] [place] [address] Mckayla Blas, CENTRAL SERVICE TECHNICIAN [address] [place] [address] 05/28/2025 10:30 AM EST Office Visit [facility] [address] [place] [address] Rain Suoza MD [address] [place] [address] 02/01/2026 6:00 PM EDT Office Visit [facility] [address] [place] [address] Mckayla Blas NP [address] [place] [address] documented as of this encounter Procedures Procedure [...] as of this encounter Care Teams Supervisor Solder Making Relationship Specialty Start Date End Date Ty Amin MD [address] [place] [address] PCP - General Family Medicine 09/20/23 Mckayla Blas NP [address] [place] [address] PCP - [facility] 09/07/23 01/11/25 Mckayla Blas NP [address] [place] [address] Nurse Practitioner Family Medicine 09/20/23 documented as of this encounter
--- OUTSIDE RECORDS SUMMARY | 2025-03-02 08:54 | XMS_ITS | Encounter Summary ---
Author Organization [employer] [facility] tem Address [id number] [address] [place] [address] Care Team Providers Care Knowledge Analyst Name Role Phone JuanjoseMckayla carcamo Krystal PEREZN-PLANT AND MACHINERY VALUER Primary Care Provider Encounter Details Date Type Department Care Team (Late st Contact Info) Description 05/31/2020 Orders Only [facility] [address] [place] [address] External, Scanning Provider Social History Tobacco Use [...] on filedocumented in this encounter Care Teams Knowledge Analyst Relationship Specialty Start Date End Date Mckayla Blas, BUTTONHOLER-PLANT AND MACHINERY VALUER [address] [place] [address] PCP - General Nurse Practitioner 09/25/18 documented as of this encounter
--- OUTSIDE RECORDS SUMMARY | 2025-03-02 08:54 | XMS_ITS | Encounter Summary ---
Author Organization [facility] Address [address] [place] [address] Care Team Providers Care Brick 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 Name Role Phone Ty Amin MD Primary Care Provider [phone] Mckayla Blas BELT LOOP MACHINE OPERATOR Unavailable [phone] Mckayla Blas BELT LOOP MACHINE OPERATOR Unavailable [phone] Encounter Details Date Type Department Care Team (Late st Contact Info) Description 01/07/2025 Abstract [facility] [address] [place] [address] Mckayla Blas NP [address] [place] [address] Social History Tobacco Use Types [...] you attend chur ch or buddhist services? More than 4 times per year [...] Recorded Patient Health Questionnaire-2 Score 1 01/17/2024 [facility] of Occupat ional Health - Occupational Stress [...] any time in the past 12 m [facility], were you homeless or living in [...] [facility] [place] [address] [place] [address] Mckayla Blas NP [address] [place] [address] 05/28/2025 10:30 AM EST Office Visit [facility] [address] [place] [address] Rain Souza MD [address] [place] [address] 02/01/2026 6:00 PM EDT Office Visit [facility] [address] [place] [address] Mckayla Blas, SILVANO [address] [place] [address] documented as of this encounter Visit Diagnoses Not on filedocumented in this encounter Additional Health Concerns Assessment Noted Time PHQ-9 Depression Total Score: 3 01/17/20 10:08 AM EDT documented as of this encounter Care Teams Brick 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 Relationship Specialty Start Date End Date Ty Amin MD [address] [place] [address] PCP - General Family Medicine 09/20/23 Mckayla Blas NP [address] [place] [address] PCP - [facility] 09/07/23 01/11/25 Mckayla Blas NP [address] [place] [address] Nurse Practitioner Family Medicine 09/20/23 documented as of this encounter
--- OUTSIDE RECORDS SUMMARY | 2025-03-02 08:54 | XMS_ITS | Encounter Summary ---
Author Organization [employer] Address [id number] [address] [place] [address] Care Team Providers Care Inside Sales Administrator Name Role Phone JuanjoseMckayla carcamo Krystal FURNITURE DESIGNER-PAINTER SUPERVISOR Primary Care Provider Encounter Details Date Type Department Care Team (Late st Contact Info) Description 05/31/2020 Orders Only [facility] [address] [place] [address] External, Scanning Provider Social History Tobacco Use [...] ECG ORDERABLES Final Result Performing Organization Address [facility] Co de Phone Number [...] ECG ORDERABLES Final Result Performing Organization Address [facility] Co de Phone Number MANUALLY TRANSCRIBED RESULTS * Pulmonary function test (10/24/2018) us Scanning Provider External PFT ORDERABLES Final Result Performing Organization Address [facility] Co de Phone Number MANUALLY TRANSCRIBED RESULTS * Nuc stress Lexiscan/Exercise (12/12/2016) Anatomical Region Laterality Modality Chest N/A Nuclear Medicine us Scanning Provider External CV STRESS ORDERABLES Final Result documented in this encounter Visit Diagnoses Not on filedocumented in this encounter Care Teams Inside Sales Administrator Relationship Specialty Start Date End Date Mckayla Blas, FURNITURE DESIGNER-PAINTER SUPERVISOR [address] [place] [address] PCP - General Nurse Practitioner 09/25/18 documented as of this encounter
--- OUTSIDE RECORDS SUMMARY | 2025-03-02 08:55 | XMS_ITS | Encounter Summary ---
Author Organization [facility] Address [address] [place] [address] Care Team Providers Care Customer Engagement Analyst Name Role Phone Ty Amin MD Primary Care Provider [phone] Mckayla Blas CLOTH MERCERIZER BACK TENDER Unavailable [phone] Mckayla Blas CLOTH MERCERIZER BACK TENDER Unavailable [phone] Encounter Details Date Type Department Care Team (Late st Contact Info) Description 04/14/2024 Orders Only [facility] [address] [place] [address] Mckayla Blas CLOTH MERCERIZER BACK TENDER [address] [place] [address] Social History Tobacco Use Types Packs/Day Years [...] Office Visit [facility] [address] [place] [place] [address] Mckayla Blas, CLOTH MERCERIZER BACK TENDER [address] [place] [address] 05/28/2025 10:30 AM EST Office Visit [facility] [address] [place] [address] Rain Souza MD [address] [place] [address] 02/01/2026 6:00 PM EDT Office Visit [facility] [address] [place] [address] Mckayla Blas NP [address] [place] [address] documented as of this encounter Procedures Procedure [...] Ankle Right Radiogr aphic Imaging Mckayla Blas CLOTH MERCERIZER BACK TENDER IMG XR PROCEDURES Final Result documented in this encounter Visit Diagnoses Not on filedocumented in this encounter Additional Health Concerns Assessment Noted Time PHQ-9 Depression Total Score: 3 01/17/20 10:08 AM EDT documented as of this encounter Care Teams Customer Engagement Analyst Relationship Specialty Start Date End Date Ty Amin MD [address] [place] [address] PCP - General Family Medicine 09/20/23 Mckayla Blas NP [address] [place] [address] PCP - [facility] 09/07/23 01/11/25 Mckayla Blas NP [address] [place] [address] Nurse Practitioner Family Medicine 09/20/23 documented as of this encounter
--- OUTSIDE RECORDS SUMMARY | 2025-03-02 08:55 | XMS_ITS | Encounter Summary ---
Author Organization [facility] Address [address] [place] [address] Care Team Providers Care Senior Mechanical Project Manager Name Role Phone Ty Amin MD Primary Care Provider [phone] Mckayla Blas NP Unavailable [phone] Mckayla Blas NP Unavailable [phone] Encounter Details Date Type Department Care Team (Late st Contact Info) Description 05/12/2024 Orders Only [facility] [address] [place] [address] Angela Cochran NP [address] [place] [address] Social History Tobacco Use Types [...] Questionnaire-2 Score 1 01/17/2024 [facility] - Occupational Stress Questionnaire Answer Date [...] Office Visit [facility] [address] [place] [address] Mckayla Blas NP [address] [place] [address] 05/28/2025 10:30 AM EST Office Visit [facility] [address] [place] [address] Rain Souza MD [address] [place] [address] 02/01/2026 6:00 PM EDT Office Visit [facility] [address] [place] [address] Mckayla Blas NP [address] [place] [address] documented as of this encounter Procedures Procedure [...] documented as of this encounter Care Teams Senior Mechanical Project Manager Relationship Specialty Start Date End Date Ty Amin MD [address] [place] [address] PCP - General Family Medicine 09/20/23 Mckayla Blas NP [address] [place] [address] PCP - [facility] 09/07/23 01/11/25 Mckayla Blas NP [address] [place] [address] Nurse Practitioner Family Medicine 09/20/23 documented as of this encounter
--- OUTSIDE RECORDS SUMMARY | 2025-03-02 08:55 | XMS_ITS | Encounter Summary ---
Author Organization [facility] Address [address] [place] [address] Care Team Providers Care Gear Tooth Grinding 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 Name Role Phone Ty Amin MD Primary Care Provider [phone] Mckayla Blas RN ORTHO Unavailable [phone] Mckayla Blas RN ORTHO Unavailable [phone] Encounter Details Date Type Department Care Team (Late st Contact Info) Description 01/07/2025 Abstract [facility] [address] [place] [address] Mckayla Blas NP [address] [place] [address] Social History Tobacco Use Types [...] you attend chur ch or uatsdin services? More than 4 times [...] Patient Health Questionnaire-2 Score 1 01/17/2024 [facility] - Occupational [...] in the past 12 m [facility], were you homeless or living in [...] Visit [facility] [address] [place] [address] Mckayla Blas NP [address] [place] [address] 05/28/2025 10:30 AM EST Office Visit [facility] [address] [place] [address] Rain Souza MD [address] [place] [address] 02/01/2026 6:00 PM EDT Office Visit [facility] [address] [place] [address] Mckayla Blas, SILVANO [address] [place] [address] documented as of this encounter Visit Diagnoses Not on filedocumented in this encounter Additional Health Concerns Assessment Noted Time PHQ-9 Depression Total Score: 3 01/17/20 10:08 AM EDT documented as of this encounter Care Teams Gear Tooth Grinding 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 Relationship Specialty Start Date End Date Ty Amin MD [address] [place] [address] PCP - General Family Medicine 09/20/23 Mckayla Blas NP [address] [place] [address] PCP - [facility] 09/07/23 01/11/25 Mckayla Blas NP [address] [place] [address] Nurse Practitioner Family Medicine 09/20/23 documented as of this encounter
--- OUTSIDE RECORDS SUMMARY | 2025-03-02 08:55 | XMS_ITS | Encounter Summary ---
Author Organization [facility] Address [address] [place] [address] Care Team Providers Care Sports Marketing Internship Name Role Phone Ty Amin MD Primary Care Provider [phone] Mckayla Blas NP Unavailable [phone] Reason for Visit * Reason Comments Med Refill Encounter Details Date Type Department Care Team (Late st Contact Info) Description 02/14/2025 [facility]ill [facility] [address] [place] [address] Rain Souza MD [address] [place] [address] Type 2 diabetes mellitus with hyperglycemia, with [...] How often do you attend chur or rastafari services? More than 4 times per year 08/26/2024 Do you belong to any clubs o r organizations such as sikh groups, unions, fraIntern or athletic groups, or school groups? No [...] Recorded Patient Health Questionnaire-2 Score 0 01/26/2025 [facility] - [...] any time in the past 12 m [facility], were you homeless or living in a [...] [facility] [address] [place] [address] Mckayla Blas NP [address] [place] [address] 05/28/2025 10:30 AM EST Office Visit [facility] [place] [facility] [address] [place] [address] Rain Souza MD [address] [place] [address] 02/01/2026 6:00 PM EDT [facility] [address] [place] [address] Mckayla Blas NP [address] [place] [address] documented as of this encounter Visit Diagnoses Diagnosis Type 2 diabetes mellitus with hyperglycemia, with long-term current use of insulin (HCC) documented in this encounter Additional Health Concerns Assessment Noted Time PHQ-9 Depression Total Score: 3 01/17/20 10:08 AM EDT documented as of this encounter Care Teams Sports Marketing Internship Relationship Specialty Start Date End Date Ty Amin MD [address] [place] [address] PCP - General Family Medicine 09/20/23 Mckayla Blas NP [address] [place] [address] Nurse Practitioner Family Medicine 09/20/23 documented as of this encounter
--- OUTSIDE RECORDS SUMMARY | 2025-03-02 08:55 | XMS_ITS | Encounter Summary ---
Author Organization [facility] Address [address] [place] [address] Care Team Providers Care Catalyst Unit Operator Name Role Phone Ty Amin MD Primary Care Provider [phone] Mckayla Blas NP Unavailable [phone] Mckayla Blas NP Unavailable [phone] Encounter Details Date Type Department Care [...] Office Visit [facility] [address] [place] [address] Mckayla Blas NP [address] [place] [address] 05/28/2025 10:30 AM EST Office Visit [facility] [address] [place] [address] Rain Souza MD [address] [place] [address] 02/01/2026 6:00 PM EDT Office Visit [facility] [address] [place] [address] Mckayla Blas, SILVANO [address] [place] [address] documented as of this encounter Procedures Procedure Name Priority Date/Time Associated Diagnosis Comments CT ABDOMEN PELVIS W CON 05/12/2024 2:16 PM EST documented in this encounter Results * CT ABDOMEN PELVIS W CON (05/12/2024 2:16 PM EST) Anatomical Region Laterality Modality Other 05/12/2024 2:16 PM EST Narrative 05/12/2024 2:19 [place] [address] CT Scan Report Signed Patient: MITZI MACIAS MR#: [id number] : 1970 Acct:[id number] Age/Sex: 53 / F ADM Date: 05/12/24 Loc: CT Attending Dr: Gaviota MAYERS Ordering Physician: Gaviota Vega Date of Service: 05/12/24 Procedure(s): CT abdomen pelvis w con Accession Number(s): [id number] cc: Mckayla Blas NP [address] [address] Patient Name: MITZI MACIAS MRN: [id number] date: 1970 Sex: F Assigned Patient Location: CT Current Patient Location: Accession/Order Number: [id number] Exam Date: 05/12/2024 11:15 Report Date: 05/12/2024 [...] Signed By: 05/12/24 1419 DD/ 1416 TD/TT: Marketing And Promotions Manager: Procedure Note Radiology, Radiologist, MD - 05/12/2024 [place] [address] CT Scan Report Signed Patient: MITZI MACIAS LMR#: [id number] : 1970Acct:[id number] Age/Sex: 53 / FADM Date: 05/12/24 Loc: CT Attending Dr: Gaviota MAYERS Ordering Physician: Gaviota Vega Date of Service: 05/12/24 Procedure(s): CT abdomen pelvis w con Accession Number(s): [id number] cc: Mckayla Blas NP [facility] [place] [id number] Patient Name: MITZI MACIAS MRN: [facility]:[id number] date: 1970 Sex: F Assigned Patient Location: CT Current Patient Location: Accession/Order Number: [id number] Exam Date: 05/12/2024 11:15 Report Date: 05/12/2024 [...] M.D. Signed By:05/12/24 1419 DD/ 1416 TD/TT: Marketing And Promotions Manager: us Generic External Data Provider [facility] Final Result documented in this encounter Visit Diagnoses Not on filedocumented in this encounter Additional Health Concerns Assessment Noted Time PHQ-9 Depression Total Score: 3 01/17/20 24 10:08 AM EDT documented as of this encounter Care Teams Catalyst Unit Operator Relationship Specialty Start Date End Date yT Amin MD [address] [place] [address] PCP - General Family Medicine 09/20/23 Mckayla Blas NP [address] [place] [address] PCP - [facility] 09/07/23 01/11/25 Mckayla Blas NP [address] [place] [address] Nurse Practitioner Family Medicine 09/20/23 documented as of this encounter
--- OUTSIDE RECORDS SUMMARY | 2025-03-02 08:55 | XMS_ITS | Encounter Summary ---
Author Organization [facility] Address [address] [place] [address] Care Team Providers Care Options Advisor Name Role Phone Ty Amin MD Primary Care Provider [phone] Mckayla Blas NP Unavailable [phone] Mckayla Blas NP Unavailable [phone] Encounter Details Date Type Department Care [...] often do you attend chur ch or restorationist services? 1 to 4 times per year [...] Recorded Patient Health Questionnaire-2 Score 1 01/17/2024 [facility] - [...] No 07/10/2023 Housing Stability Vital Sign Answer Wilemr e Recorded In the last 12 months, [...] Office Visit [facility] [address] [place] [address] Mckayla Blas NP [address] [place] [address] 05/28/2025 10:30 AM EST Office Visit [facility] [address] [place] [address] Rain Souza MD [address] [place] [address] 02/01/2026 6:00 PM EDT Office Visit [facility] [address] [place] [address] Mckayla Blas, SILVANO [address] [place] [address] documented as of this encounter Procedures Procedure Name Priority Date/Time Associated Diagnosis Comments SEGMENTAL BLOOD PRESSURE 04/24/2024 11:20 AM EDT documented in this encounter Results * SEGMENTAL BLOOD PRESSURE (04/24/2024 11:20 AM EDT) Anatomical Region Laterality Modality Radiographic Kalani ging 04/24/2024 11:2 0 AM EDT Narrative 04/24/2024 11:23 [place] [address] Vein Report Signed Patient: SINA MACIAS MR#: [id number] : 1970 Acct:[id number] Age/Sex: 53 / F ADM Date: 04/24/24 Loc: VC Attending Dr: Rafael Gongora Ordering Physician: Rafael Gongora Date of Service: 04/24/24 Procedure(s): VC SEGMENTAL PRESSURES Accession Number(s): [id number] cc: Mckayla Blas CLOTH TESTER; Rafael Gongora [place] [address] Patient Name: SINA MACIAS MRN: [id number] date: 1970 Sex: F Assigned Patient Location: Current Patient Location: Accession/Order Number: [id number] Exam Date: 04/24/2024 10:25 Report Date: 04/24/2024 11:20 At the request of: RAAFEL GONGORA Procedure: VC SEGMENTAL PRESSURES EXAM: VC SEGMENTAL PRESSURES HISTORY: R09.89 COMPARISON: None. FINDINGS: Segmental pressures presented as follows (right, left) in mmHg. Brachial: 169, 166 Upper thigh: Not obtained Lower thigh: 129, 119 Calf: 124, 106 DPA: 108, 105 DRAFTER (CAD) ELECTRICAL: 100, 91 1st Toe: 124, 142 ISABELLE: [...] Signed By: 04/24/24 1123 DD/ 1120 TD/TT: Beach Patrol Lieutenant: Procedure Note Radiology, Radiologist, MD - 04/24/2024 [place] [address] Vein Report Signed Patient: SINA MACIAS LMR#: [id number] : 1970Acct:[id number] Age/Sex: 53 / FADM Date: 04/24/24 Loc: VC Attending Dr: Rafael Gongora Ordering Physician: Rafael Gongora Date of Service: 04/24/24 Procedure(s): VC SEGMENTAL PRESSURES Accession Number(s): [id number] cc: Mckayla Blas NP; Rafael Gongora [facility] [place] [address] Patient Name: SINA MACIAS MRN: [id number] date: 1970 Sex: F Assigned Patient Location: Current Patient Location: VC Accession/Order Number: [id number] Exam Date: 04/24/2024 10:25 Report Date: 04/24/2024 11:20 At the request of: RAFAEL GONGORA Procedure: VC SEGMENTAL PRESSURES EXAM: VC SEGMENTAL PRESSURES HISTORY: R09.89 COMPARISON: None. FINDINGS: Segmental pressures presented as follows (right, left) in mmHg. Brachial: 169, 166 Upper thigh: Not obtained Lower thigh: 129, 119 Calf: 124, 106 DPA: 108, 105 DRAFTER (CAD) ELECTRICAL: 100, 91 1st Toe: 124, 142 ISABELLE: [...] M.D. Signed By:04/24/24 1123 DD/ 1120 TD/TT: Beach Patrol Lieutenant: us Generic External Data Provider IMG XR PROCEDURES Final Result documented in this encounter Visit Diagnoses Not on filedocumented in this encounter Additional Health Concerns Assessment Noted Time PHQ-9 Depression Total Score: 3 01/17/20 24 10:08 AM EDT documented as of this encounter Care Teams Options Advisor Relationship Specialty Start Date End Date Ty Amin MD [address] [place] [address] PCP - General Family Medicine 09/20/23 Mckayla Blas NP [address] [place] [address] PCP - [facility] 09/07/23 01/11/25 Mckayla Blas NP [address] [place] [address] Nurse Practitioner Family Medicine 09/20/23 documented as of this encounter
--- OUTSIDE RECORDS SUMMARY | 2025-03-02 08:55 | XMS_ITS | Clinical Summary ---
Author Organization [facility] Address [id number] [address] [place] [address] Care Team Providers Care Locks Tender Name Role Phone Wan Mckayla Krystal PEREZN-MOLD REPAIRER Primary Care Provider Allergies No known active [...] Medical Devices Not on file [place] [employer] [place]ICARE Care Teams Locks Tender Relationship Specialty Start Date End Date Mckayla Blas APRN-MOLD REPAIRER [address] [place] [address] PCP - General Nurse Practitioner 09/25/18
--- OUTSIDE RECORDS SUMMARY | 2025-03-02 08:55 | XMS_ITS | Clinical Summary ---
Author Organization [facility] Address [address] [place] [address] Care Team Providers Care Clinical Program Director Name Role Phone Ty Amin MD Primary Care Provider [phone] Mckayla Blas NP Unavailable [phone] Allergies No known active allergies Medications [...] if needed for wheezing Active HYDROcodone-acet aminophen (Avoca) 5-325 MG tablet 1 tablet as needed [...] mg) before bedtime. 60 capsule 5 Active Accu-Chek Guide Test test stripIndications :Type [...] 025 Active ergocalciferol (Vitamin D2) 1.25 MG (25936 UT) capsuleIndicatio ns:Vitamin D deficiency, unspecified Take 1 capsule (1.25 mg) by mouth 1 (one) time per week 12 capsule 1 025 2024 Active sulfamethoxazole -trimethoprim (Bactrim DS) 800-160 [...] or chew. 180 capsule 1 2024 Active fluconazole (Diflucan) 150 MG tabletIndication [...] (40 mg) by mouth Daily 90 tablet 2024 Active hydrALAZINE (Apresoline) 25 MG tabletIndication s:Primary hypertension Take 1 tablet (25 mg) by mouth in the morning and 1 tablet (25 mg) before bedtime. 180 tablet 1 2024 Active lisinopril 20 MG tabletIndication s:Primary [...] morning. 90 capsule 1 025 2024 Active Roflumilast 500 MCG tabletIndication s:Chronic obstructive pulmonary disease, unspecified (HCC) Take 1 tablet by mouth Daily 90 tablet 1 025 2024 Active simvastatin (Zocor) 10 MG tabletIndication s:Hyperlipidemia , unspecified Take 1 tablet (10 mg) by mouth at bedtime 90 tablet 1 025 2024 Active insulin glargine (Lantus) 100 UNIT/ML injectionIndicat ions:Type 2 diabetes mellitus with hyperglycemia, with long-term current use of insulin ([facility]) Inject 58 Units under the skin in the morning and 58 Units before bedtime. 104.4 mL 1 025 2025 Active insulin glargine (Lantus SoloStar) 100 UNIT/ML penIndications:T ype 2 diabetes mellitus with hyperglycemia, with long-term current use of insulin ([facility]) INJECT 58 UNITS SUBCUTANEOUSLY TWICE A DAY 105 mL 2 025 Active Tirzepatide (Mounjaro) 15 MG/0.5ML solution auto-injectorInd ications:Type 2 diabetes mellitus with other circulatory complications (HCC) Inject 15 mg under the skin 1 (one) time per week 6 mL 1 025 Active Tirzepatide (Mounjaro) 15 MG/0.5ML solution auto-injectorInd ications:Type 2 diabetes mellitus with other circulatory complications ([facility]) INJECT 15MG SUBCUTANEOUSLY ONCE A WEEK 6 mL 1 024 2024 Discontinued Lantus SoloStar 100 UNIT/ML pen 025 2024 Discontinued Tirzepatide (Mounjaro) 15 MG/0.5ML solution auto-injectorInd ications:Type 2 diabetes mellitus with other circulatory complications (HCC) INJECT 15MG SUBCUTANEOUSLY ONCE A WEEK 6 mL 1 025 2024 Discontinued(R eorder) Active Problems [...] wrapped, 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 as possible [facility] current use of inhaled steroid 025 Non-pressure [...] see if helps Encounter for subsequent [facility] wellness visit (AWV) in Medicare patient [...] can try ubrelvy #3 samples given: Lot [id number], exp 03/2025 Mixed incontinence 11/14/2023 Arthritis 11/14/2023 [...] is necessary they take over prescribing Pancreatitis ([facility]) 09/17/2023 COPD exacerbation 09/17/2023 Assessment & Plan [...] 11:17 AM EDT): Open wounds refer to [facility] Wound Care Pulmonary hypertension 09/17/2023 Assessment & Plan (01/26/2025 7:52 AM EDT): Has seen [facility] Cardiology Assessment & Plan (12/09/2024 7:23 AM EDT): Has seen [facility] Cardiology Assessment & Plan (11/15/2023 3:49 PM EDT): Saw [facility] Cardiology See notes Going to see Pulmonary Assessment & Plan (09/27/2023 1:03 PM EDT): Needs to wear her PAP I am also going to have her see [facility] Cardiology as well PAD [...] Plan (01/26/2025 7:53 AM EDT): Continue with cintia hudson mgmt is [...] spiriva Will trial breztri: #2 samples given [id number], exp 03/03, rinse mouth after use Give [...] PM EDT): Current meds: albuterol, duoneb, Has automatic dry starch operator 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 Assessment & Plan (08/27/2024 7:30 AM EST): Current meds: albuterol, duoneb, Has automatic dry starch operator 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 Assessment & Plan [...] lost script I did contact [facility] [place], they will get another fill on this [...] of the risks of continued smoking: stroke, ND, all forms of cancer, lung disease, and [...] of the risks of continued smoking: stroke, ND, all forms of cancer, lung disease, and [...] Encounters Date Type Department Care Team Description 02/27/2025 Refill [facility] [address] [place] [address] Amber Pinzon LPN Type 2 diabetes mellitus with other circulatory complications (HCC) 02/26/2025 Refill [facility] [address] [place] [address] Rain Odonnell MD Type 2 diabetes mellitus with other circulatory complications (HCC) 02/18/2025 Abstract [facility] [address] [facility] [place] [address] Mckayla Blas NP 02/14/2025 Refill [facility] [address] [place] [address] Rain Odonnell MD Type 2 diabetes mellitus with hyperglycemia, with long-term current use of insulin ([facility]) 01/29/2025 9:40 AM EDT Office Visit [facility] [address] [place] [address] Rain Odonnell MD Encounter for dietary consultation (Primary Dx); Type 2 diabetes mellitus with hyperglycemia, with long-term current use of insulin ([facility]); Vitamin D deficiency; Primary hypertension ; Insulin long-term use ([facility]); Hyperlipemia, mixed ; Microalbuminuria; Class 3 severe obesity due to excess calories with serious comorbidity and body mass index (BMI) of 50.0 to 59.9 in adult ([facility] 01/29/2025 Clinisync Result Encounter [facility] External Department Unsolicited Provider, Generic External Data 01/29/2025 Bamboo flowsheet [facility] [address] [place] [address] Rain Odonnell MD 01/26/2025 6:00 PM EDT Office Visit [facility] [address] [place] [address] Mckayla Blas NP Encounter for subsequent annual wellness visit (AWV) in Medicare patient (Primary Dx); Mixed hyperlipidemia ; Type 2 diabetes mellitus with complication, with long-term current use of insulin ([facility]); Bilateral lower extremity edema; Gastro-esophageal reflux disease without esophagitis; Chronic diastolic heart failure ([facility]); Primary hypertension ; Pulmonary hypertension ([facility]); Diabetic polyneuropathy associated with type 2 diabetes mellitus ([facility]); Pulmonary emphysema, unspecified emphysema type (HCC); Moderate persistent asthma without complication ([facility]); Insomnia; Non-seasonal allergic rhinitis, unspecified trigger; Type 2 diabetes mellitus with unspecified complications ([facility]); Anxiety and depression ; Antibiotic-induced yeast infection; Chronic obstructive pulmonary disease, unspecified (HCC); Hyperlipidemia, unspecified ; Vaginal yeast infection; Morbid (severe) obesity due to excess calories ([facility]) 01/26/2025 Bamboo flowsheet [facility] [address] [place] [address] Mckayla Blas NP 01/19/2025 Travel 01/16/2025 Refill [facility] [address] [place] [address] Amber Pinzon LPN Vitamin D deficiency, unspecified 01/07/2025 Abstract [facility] [address] [place] [address] Mckayla Blas NP 01/07/2025 Abstract [facility] [address] [place] [address] Mckayla Blas NP 12/18/2024 Refill [facility] [address] [place] [address] Mckayla Blas NP Hyperlipidemia, unspecified ; Tobacco user; Encounter for smoking cessation counseling 12/17/2024 Telephone [facility] [address] [place] [address] Mckayla Blas NP Error (VOID this visit) 12/09/2024 10:00 AM EDT Office Visit [facility] [address] [place] [address] Mckayla Blas NP Cellulitis of left lower extremity (Primary Dx); COPD exacerbation (HCC); Primary hypertension ; Pulmonary hypertension (HCC); Morbid (severe) obesity due to excess calories ([facility]); Type 2 diabetes mellitus with complication, with long-term current use of insulin (HCC); Anxiety and depression ; Fever, unspecified fever cause 12/09/2024 Bamboo flowsheet [facility] [address] [place] [address] Mckayla Blas NP 12/08/2024 Travel 12/04/2024 Clinisync Result Encounter [facility] External Department Unsolicited Provider, Generic External Data from Last 3 Months Immunizations Immunization Administration Dates Next Due Influenza Whole 05/02/2013 Influenza, [id number] 04/16/2017,05/10/2016 Influenza, Unspecified 05/18/2023,04/16/2017,08/2015 Influenza, injectable, quadrivalent [...] often do you attend chur ch or mormon services? More than 4 times per year [...] Recorded Patient Health Questionnaire-2 Score 0 01/26/2025 [facility] [...] in a halfway (including now)? No 07/10/2023 Housing Stability Vital Sign Answer Wilmer e Recorded In the last 12 months, was t here a time when you were not able to pay the mortgage or rent on time? No 08/26/2024 Number of Times Moved in the Last Year Not on fi le 08/26/2024 At any time in the past 12 m [facility], were you homeless or living in a halfway (including now)? No 08/26/2024 Comments Unknown Sex [...] Visit [facility] [address] [place] [address] Mckayla Blas, SCHOOL AGE TEACHER [address] [place] [address] 05/28/2025 10:30 AM EST Office Visit [facility] [address] [place] [address] Rain Odonnell MD [address] [place] [address] 02/01/2026 6:00 PM EDT Office Visit [facility] [address] [place] [address] Mckayla Blas, SCHOOL AGE TEACHER [address] [place] [address] Health Maintenance Due Date Last Done Comments CT Colonography 1970 Colonoscopy 1970 FIT 1970 FOBT 1970 Sigmoidoscopy 1970 HPV/Cotest 2000 Pap Smear 10/07/2018 10/08/2015, 10/08/2015 Mammogram 12/13/2024 12/14/2023, 0601/2024, 11/22/2022 Influenza Vaccine (#1) 2025 , 05/18/2023, [...] EDT Narrative 01/29/2025 6:40 [place] [address] Cardiology Report Signed Patient: SINA MACIAS MR#: [id number] : 1970 Acct:[id number] Age/Sex: 54 / F ADM Date: 01/29/25 Loc: CARD Attending Dr: AMI ORO APRN Ordering Physician: AMI ORO APRN Date of Service: 01/29/25 Procedure(s): CA echo doppler complete Accession Number(s): [id number] cc: Mckayla Blas SCHOOL AGE TEACHER; AMI ORO APRN Patient Name: SINA MACIAS MR#: [id number] : 1970 Exam Date: 01/29/2025 Ordering Doctor: AMI ORO [facility] ECHOCARDIOGRAM REPORT PROCEDURE: CA ECHO DOPPLER [...] AGUILAR Signed By: 01/29/251839 DD/ 39 TD/TT: Desk Attendant: Procedure Note Radiology, Radiologist, MD - 01/29/2025 [place] [address] Cardiology Report Signed Patient: SINA MACIAS LMR#: [id number] : 1970Acct:[id number] Age/Sex: 54 / FADM Date: 01/29/25 Loc: CARD Attending Dr: AMI ORO APRN Ordering Physician: AMI ORO APRN Date of Service: 01/29/25 Procedure(s): CA echo doppler complete Accession Number(s): [id number] cc: Mckayla Blas SCHOOL AGE TEACHER; AMI ORO APRN Patient Name: SINA MACIAS MR#: [id number] : 1970 Exam Date: 01/29/2025 Ordering Doctor: [...] BHARAT AGUILAR Signed By:01/29/251839 DD/ 39 TD/TT: Desk Attendant: us Generic External Data Provider [facility] [...] Provider LAB BLOOD [facility]AB LES [facility]OD C[facility] 1 (12/04/2024 4:44 PM EDT) BLOOD CULTURE 1 Blood Culture 1 NG5D NO GROWTH AT 5 DAYS.^NO GROWTH AT 5 DAYS. [facility] 12/04/2024 4:44 PM EDT 12/04/2024 5:17 PM EDT Narrative [facility] - 12/10/2024 2:32 PM EDT us Generic External Data Provider LAB BLOOD ORDERAB LES Final Result [facility] * Diabetic Retinopathy Screening - OU - Both Eyes (07/14/2024 3:09 PM EST) Anatomical Region Laterality Modality Head Other us Mckayla Blas NP OPHTH PHOTOGRAPHY Final Result * MM TOMOSYNTHESIS SCREENING BI (12/14/2023 11:21 AM EDT) Anatomical Region Laterality Modality Other 12/14/2023 11:2 1 AM EDT Narrative 12/14/2023 11:22 [place] [address] Mammography Report Signed Patient: SINA MACIAS MR#: [id number] : 1970 Acct:[id number] Age/Sex: 53 / F ADM Date: 12/13/23 Loc: MAMMO Attending Dr: Mckayla Blas NP Ordering Physician: Mckayla Blas NP Results: Date of Service: 12/13/23 Follow Up: Procedure(s): MM tomosynthesis screening BI Accession Number(s): [id number] cc: Mckayla Blas NP Patient Name: SINA MACIAS MR#: [id number] : 1970 Exam Date: 12/13/2023 Ordering Doctor: [...] unknown cancer at age 75. LOCATION: [facility] BREAST COMPOSITION: The breasts are almost [...] Signed By: 12/14/23 1122 DD/ 1121 TD/TT: Desk Attendant: Procedure Note Radiology, Radiologist, MD - 12/14/2023 [place] [address] Mammography Report Signed Patient: SINA MACIAS LMR#: [id number] : 1970Acct:[id number] Age/Sex: 53 / FADM Date: 12/13/23 Loc: MAMMO Attending Dr: Mckayla Blas NP Ordering Physician: Mckayla Blas NPResults: Date of Service: 12/13/23Follow Up: Procedure(s): MM tomosynthesis screening BI Accession Number(s): [id number] cc: Mckayla Blas NP Patient Name: SINA MACIAS MR#: [id number] : 1970 Exam Date: 12/13/2023 Ordering Doctor: [...] unknown cancer at age 75. LOCATION: [facility] BREAST COMPOSITION: The breasts are almost [...] M.D. Signed By:12/14/23 1122 DD/ 1121 TD/TT: Desk Attendant: Mckayla Blas NP [facility] Final Result from Last 3 Months or Most Recently Relevant to Health Maintenance Insurance MEDICARE [facility] Care Teams Clinical Program Director Relationship Specialty Start Date End Date Ty Amin MD [address] [place] [address] PCP - General Family Medicine 09/20/23 Mckayla Blas NP [address] [place] [address] Nurse Practitioner Family Medicine 09/20/23
--- OUTSIDE RECORDS SUMMARY | 2025-03-02 08:55 | XMS_ITS | Encounter Summary ---
Author Organization [facility] Address [address] [place] [address] Care Team Providers Care Center Human Resources Manager Name Role Phone Mckayla Blas MD Primary Care Provider [phone] Encounter Details Date Type Department Care Team (Late st Contact Info) Description 02/04/2025 Results Follow-Up Cardiology [address] [place] [address] Karma Chatterjee CNP [address] [facility] [place] [address] Complete Echo (TTE) w/wo Imaging [...] on filedocumented in this encounter Care Teams Center Human Resources Manager Relationship Specialty Start Date End Date Mckayla Blas MD [address] [place] [address] PCP - General Nurse Practitioner 11/13/23 documented as of this encounter
--- OUTSIDE RECORDS SUMMARY | 2025-03-02 08:56 | XMS_ITS | Patient Health Record ---
Author Organization [facility] [place] Address [address] [place] [address] Care Team Providers Care Mule Tender Name Role Phone Mckayla Blas CNP Primary Care Provider Unavail able Armando Yañez Unavailable [phone] Allergies No Known Allergies Results Component Value Reference Range Notes PROF CHEM 8 (BAS METB) (Not yet reviewed by provider) Interpretation: Performing Lab: Notes/Report: [facility] , Sodium 142 136-145 mmol/L Potassium [...] Performing Lab: see note ML - [facility] LB CBC AUTO DIFF (Not yet revie wed by provider) Interpretation: Performing Lab: Notes/Report: [facility] , White Blood Count 12.8 4.0-11.0 [...] Performing Lab: see note ML - [facility] LB VC SEGMENTAL PRESSURES (Not yet reviewed by provider) Interpretation: Performing Lab: Notes/Report: Source Facility: [place] [address] [place] [address] Vein Report Signed Patient: MITZI MACIAS MR#: [id number] : 1970 Acct:[id number] Age/Sex: 53 / F ADM Date: 04/24/24 Loc: VC Attending Dr: Rafael Gongora Ordering Physician: Rafael Gongora Date of Service: 04/24/24 Procedure(s): VC SEGMENTAL PRESSURES Accession Number(s): [id number] cc: Mckayla Blas NP; Rafael Gongora [place] [address] Patient Name: MITZI MACIAS MRN: [facility]:[id number] date: 1970 Sex: F Assigned Patient Location: VC Current Patient Location: VC Accession/Order Number: [id number] Exam Date: 04/24/2024 10:25 Report Date: 04/24/2024 11:20 At the request of: RAFAEL GONGORA Procedure: VC SEGMENTAL PRESSURES EXAM: VC SEGMENTAL PRESSURES HISTORY: R09.89 COMPARISON: None. FINDINGS: Segmental pressures presented as follows (right, left) in mmHg. Brachial: 169, 166 Upper thigh: Not obtained Lower thigh: 129, 119 Calf: 124, 106 DPA: 108, 105 METAL EXTRUSION SUPERVISOR: 100, 91 1st Toe: 124, 142 ISABELLE: [...] Signed By: 04/24/24 1123 DD/ 1120 TD/TT: Booking Police Officer: [place] [address] Vein Report Signed Patient: JASON MACIAS MR#: [id number] : 1970 Acct:[id number] Age/Sex: 53 / F ADM Date: 04/24/24 Loc: VC Attending Dr: Nanci Gongora Ordering Physician: Rafael Gongora Date of Service: 04/24/24 Procedure(s): VC SEGMENTAL PRESSURES Accession Number(s): [id number] cc: Mckayla Blas NP ; Rafael Gongora [place] [id number] Patient Name: MITZI MACIAS MRN: [id number] date: 1970 Sex: F Assigned Patient Location: VC Current Patient Location: VC Accession/Order Numb er: [id number] Exam Date: 10:25 Report Date: 04/24/2024 11:20 At the request of: RAFAEL GONGORA Procedure: VC SEGMEN KARY PRESSURES EXAM: VC SEGMENTAL PRESSURES HISTORY: R09.89 COMPARISON: None. FINDINGS: Segmental pressures presented as follows (right, left) in mmHg. Brachial: 169, 166 Upper thigh: Not obtained Lower thigh: 129, 119 Calf: 124, 106 DPA: 108, 105 METAL EXTRUSION SUPERVISOR: 100, 91 1st Toe: 124, 142 ISABELLE: [...] Signed By: 04/24/24 1123 DD/ 1120 TD/TT: Booking Police Officer: Reason For Referral No Information Medications Medication [...] Days Active Vitamin D (Ergocalciferol) 1.25 MG (28173 UT) Oral for 90 Days Activ e Breztri Aerosphere 160-9-4.8 MCG/ACT Inhalation for 30 Days Active Simvastatin 10 MG Oral for 90 Days Active Roflumilast 250 MCG Oral for 28 Days Active Immunizations Vaccine Route Administration Date Status Comme nts Flu, Fluzone (09725) 6-35mo, multi-dose vial (3556-5657) Unknown 05/18/2023 Administered Pneumococcal (Pneumovax 23) Unknown [...] ulcer due to type 2 diabetes mellitus (5612453685625) Type 2 diabetes mellitus with foot ulcer (E11.621) Active confirmed Problem 253655734 Morbid (severe) obesity due to excess calories (E66.01) Active confirmed Problem Venous ulcer of lower extremity due to chronic peripheral venous hypertension (116159822093815) Chronic venous hypertension (idiopathic) with ulcer of left lower extremity (I87.312) Active confirmed Problem Chronic non-pressure ulcer of calf extending to fat level (4780545966119183 1) Non-pressure chronic ulcer of other part of right lower leg with fat layer exposed (L97.812) Active confirmed Problem Chronic ulcer of skin of lower leg (disorder) (7270328401214346 4) Non-pressure chronic ulcer of other part of left lower leg limited to breakdown of skin (L97.821) Active confirmed Problem 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 exposed (L97.822) Active confirmed Problem Long-term current use of inhaled steroid (370719303) penitentiary (current) use of inhaled steroids (Z79.51) Active confirmed Problem COPD - Chronic obstructive pulmonary disease (17192862) COPD (chronic obstructive pulmonary disease) (J44.9) Active confirmed Problem Hypertension (62451468) HTN (hypertension) (I10) Active confirmed Problem Obstructive sleep apnea syndrome (40643816) DANIEL (obstructive sleep apnea) (G47.33) Active confirmed Problem Lumbar radiculopathy (874168943) Lumbar radiculopathy (M54.16) Active confirmed Problem Diabetes mellitus type 2 (disorder) (94691328) DM2 (diabetes mellitus, type 2) (E11.9) Active confirmed Problem Mental disorder caused by drug (615701065) Cigarette nicotine dependence with nicotine-induced disorder (F17.219) Active confirmed Problem Leukocytosis (628216866) Leukocytosis (D72.829) Active confirmed Problem Acute exacerbation of chronic obstructive airways disease (097989921) COPD with exacerbation (J44.1) Active confirmed Problem 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 (I87.313) Active confirmed Problem Non-prs chr ulce r oth prt l low leg limited to brkdwn skin (L97.821) Active confirmed Problem Stasis dermatitis co-occurrent with venous ulcer of right lower extremity due to chronic peripheral venous hypertension (858429030318495) Idiopathic chronic venous hypertension of right lower extremity with ulcer (I87.311) Active confirmed Problem Chronic venous hypertension with ulcer and inflammation involving left side (I87.332) Active confirmed Problem Abnormal arterial blood gas (565979868) Elevated carbon dioxide level (R79.81) Active confirmed Problem Skin ulcer of right knee, limited to breakdown of skin (L97.811) Active confirmed Encounters Encounter Location Date Provider Diagnosis [facility] [address] [place] [address] 04/07/2024 Armando Yañez [facility] [address] [place] [address] 12/02/2024 Armando De Leonsa Plan Of Treatment Pending Test Test Name Order Date CBC AUTO DIFF 08/27/2024 PROF CHEM 8 (BAS METB) 08/27/2024 VC SEGMENTAL PRESSURES 04/24/2024 Insurance Providers Payer Name Payer Address Payer Phone Subscriber Number Group Number Insured Name Patient Relationship to Insured Coverage Start Date Coverage End Date [facility] [employer]ICARE [address] [place] [address] [phone] [id number] Mitzi Macias Self - patient is the [...] (hyperlipidemia) E78.5 Elevated carbon dioxide level R79.81 sexologist (current) use of inhaled stero ids Z79.51 Anxiety and depression F41.8 GERD (gastroesophageal reflux disease) K 21.9 Surgical History Surgery Date(Month/Year) hysterectomy cholecystectomy toe surgery Hospitalization History Reason Date(Month/Year) Pneumonia -[facility] 08/31/2023 COPD Exacerbation-[facility] 09/10/2023
--- OUTSIDE RECORDS SUMMARY | 2025-03-02 08:56 | XMS_ITS | Encounter Summary ---
Author Organization [facility] Address [address] [place] [address] Care Team Providers Care Career Services Assistant Name Role Phone Ty Amin MD Primary Care Provider [phone] Mckayla Blas VENEER MATCHER Unavailable [phone] Mckayla Blas VENEER MATCHER Unavailable [phone] Reason for Visit * Reason Comments Med Refill Encounter Details Date Type Department Care Team (Late st Contact Info) Description 11/27/2023 Refill [facility] [address] [place] [address] Mckayla Blas NP [address] [place] [address] Chronic obstructive pulmonary disease, unspecified (HCC) Social [...] How often do you attend chur or roman catholic services? 1 to 4 [...] Recorded Patient Health Questionnaire-2 Score 0 11/01/2023 [facility] [...] Office Visit [facility] [address] [place] [address] Mckayla Blas NP [address] [place] [address] 05/28/2025 10:30 AM EST Office Visit [facility] [address] [place] [address] Rain Souza MD [address] [place] [address] 02/01/2026 6:00 PM EDT Office Visit [facility] [address] [place] [address] Mckayla Blas NP [address] [place] [address] documented as of this encounter Visit Diagnoses Diagnosis Chronic obstructive pulmonary disease, unspecified (HCC) documented in this encounter Care Teams Career Services Assistant Relationship Specialty Start Date End Date Ty Amin MD [address] [place] [address] PCP - General Family Medicine 09/20/23 Mckayla Blas NP [address] [place] [address] PCP - [facility] 09/07/23 01/11/25 Mckayla Blas NP [address] [place] [address] Nurse Practitioner Family Medicine 09/20/23 documented as of this encounter
--- OUTSIDE RECORDS SUMMARY | 2025-03-02 08:56 | XMS_ITS | Clinical Summary ---
Author Organization [facility] Address [address] [place] [address] Care Team Providers Care Cable Armorer Operator Name Role Phone Mckayla Blas MD Primary Care Provider [phone] Allergies No known active allergies Medications amitriptyline [...] SUBCUTANEOUSLY TWICE DAILY 2 Active HYDROcodone-ac etaminophen ([place]) 5-325 mg tablet TAKE 1 TABLET BY MOUTH THREE TIMES A DAY NEEDED FOR PAIN MUST LAST 30 DAYS 4 Active DULoxetine (Cymbalta) [address] capsule Take 1 tablet by mouth in the morning. Active ergocalciferol (Vitamin D-2) 1.25 MG (00661 Units) capsule Take 1.25 mg by mouth. 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 assisted current use of inhaled steroid 025 Vitamin [...] Assessment & Plan: Open wounds refer to [facility] Wound Care Vaginal yeast infection 08/17/2023 [...] am also going to have her see [facility] Cardiology as well Encounters Date Type Department Care Team Description 02/04/2025 Results Follow-Up Cardiology [address] [place] [address] Karma Chatterjee CNP Complete Echo (TTE) w/wo Imaging Agent, Strain, 3D, Bubble Study 01/30/2025 Orders Only [facility] [address] [place] [address] Provider, MD Dale 01/06/2025 11:20 AM EDT Office Visit [facility] [address] [facility] [place] [address] Karma Chatterjee CNP Chronic diastolic heart failure [...] drink = 0.6 oz pur e alcohol) [facility] Safety [facility] Answer Date Rec orded [...] Months Insurance [employer] MEDICARE Care Teams Cable Armorer Operator Relationship Specialty Start Date End Date Mckayla Blas MD [address] [place] [address] PCP - General Nurse Practitioner 11/13/23
--- OUTSIDE RECORDS SUMMARY | 2025-03-02 08:56 | XMS_ITS | Encounter Summary ---
Author Organization [facility] Address [address] [place] [address] Care Team Providers Care Certified Nurse Aide Name Role Phone Ty Amin MD Primary Care Provider [phone] Mckayla Blas CASHIER TUBE ROOM Unavailable [phone] Mckayla Blas NP Unavailable [phone] Encounter Details Date Type Department Care Team (Late st Contact Info) Description 12/14/2023 Clinisync Result Encounter [facility] External Department Unsolicited Mckayla Blas NP [address] [place] [address] Social History Tobacco Use Types Packs/Day Years [...] How often do you attend chur or holiness services? 1 to 4 times per year [...] Recorded Patient Health Questionnaire-2 Score 0 11/01/2023 [facility] - Occupational Stress Questionnaire Answer Date [...] Visit [facility] [address] [place] [address] Mckayla Blas, SILVANO [address] [place] [address] 05/28/2025 10:30 AM EST Office Visit [facility] [address] [place] [address] Rain Souza MD [address] [place] [address] 02/01/2026 6:00 PM EDT Office Visit [facility] [address] [place] [address] Mckayla Blas NP [address] [place] [address] documented as of this encounter Procedures Procedure Name Priority Date/Time Associated Diagnosis Comments MM TOMOSYNTHESIS SCREENING BI 12/14/2023 11:21 AM EDT documented in this encounter Results * MM TOMOSYNTHESIS SCREENING BI (12/14/2023 11:21 AM EDT) Anatomical Region Laterality Modality Other 12/14/2023 11:2 1 AM EDT Narrative 12/14/2023 11:22 [place] [address] Mammography Report Signed Patient: SINA MACIAS MR#: [id number] : 1970 Acct:[id number] Age/Sex: 53 / F ADM Date: 12/13/23 Loc: MAMMO Attending Dr: Mckayla Blas NP Ordering Physician: Mckayla Blas NP Results: Date of Service: 12/13/23 Follow Up: Procedure(s): MM tomosynthesis screening BI Accession Number(s): [id number] cc: Mckayla Blas NP Patient Name: SINA MACIAS MR#: [id number] : 1970 Exam Date: 12/13/2023 Ordering Doctor: [...] unknown cancer at age 75. LOCATION: [facility] BREAST COMPOSITION: The breasts are [...] Signed By: 12/14/23 1122 DD/ 1121 TD/TT: Animal Cruelty Investigator: Procedure Note Radiology, Radiologist, MD - 12/14/2023 [place] [address] Mammography Report Signed Patient: SINA MACIAS LMR#: [id number] : 1970Acct:[id number] Age/Sex: 53 / FADM Date: 12/13/23 Loc: MAMMO Attending Dr: Mckayla Blas NP Ordering Physician: Mckayla Blas NPResults: Date of Service: 12/13/23Follow Up: Procedure(s): MM tomosynthesis screening BI Accession Number(s): [id number] cc: Mckayla Blas NP Patient Name: SINA MACIAS MR#: [id number] : 1970 Exam Date: 12/13/2023 Ordering Doctor: SAYDA Blas IRON HANDLER RADIOLOGY REPORT PROCEDURE: MM TOMOSYNTHESIS SCREENING BI [...] unknown cancer at age 75. LOCATION: [facility] BREAST COMPOSITION: The breasts are [...] M.D. Signed By:12/14/23 1122 DD/ 1121 TD/TT: Animal Cruelty Investigator: us Mckayla Blas NP [facility] Final Result documented in this encounter Visit Diagnoses Not on filedocumented in this encounter Care Teams Certified Nurse Aide Relationship Specialty Start Date End Date Ty Amin MD [address] [place] [address] PCP - General Family Medicine 09/20/23 Mckayla Blas NP [address] [place] [address] PCP - [facility] 09/07/23 01/11/25 Mckayla Blas NP [address] [place] [address] Nurse Practitioner Family Medicine 09/20/23 documented as of this encounter
--- OUTSIDE RECORDS SUMMARY | 2025-03-02 08:56 | XMS_ITS | Encounter Summary ---
Author Organization [facility] Address [address] [place] [address] Care Team Providers Care Line Maintenance Name Role Phone Ty Amin MD Primary Care Provider [phone] Mckayla Blas CONTROL SYSTEMS DRAFTING OFFICER Unavailable [phone] Mckayla Blas NP Unavailable [phone] Encounter Details Date Type Department Care Team (Late st Contact Info) Description 12/17/2023 Orders Only [facility] [address] [place] [address] Mckayla Blas NP [address] [place] [address] Social History Tobacco Use Types Packs/Day Years [...] Office Visit [facility] [address] [place] [address] Mckayla Blas NP [address] [place] [address] 05/28/2025 10:30 AM EST Office Visit [facility] [address] [place] [address] Rain Souza MD [address] [place] [address] 02/01/2026 6:00 PM EDT Office Visit [facility] [address] [place] [address] Mckayla Blas NP [address] [place] [address] documented as of this encounter Procedures Procedure [...] filedocumented in this encounter Care Teams Line Maintenance Relationship Specialty Start Date End Date Ty Amin MD [address] [place] [address] PCP - General Family Medicine 09/20/23 Mckayla Blas NP [address] [place] [address] PCP - [facility] 09/07/23 01/11/25 Mckayla Blas NP [address] [place] [address] Nurse Practitioner Family Medicine 09/20/23 documented as of this encounter
--- OUTSIDE RECORDS SUMMARY | 2025-03-02 08:57 | XMS_ITS | Encounter Summary ---
Author Organization [facility] Address [address] [place] [address] Care Team Providers Care Automotive Parts Person Name Role Phone Ty Amin MD Primary Care Provider [phone] Ty Amin MD Primary Care Provider [phone] Mckayla Blas REEL OPERATOR Unavailable [phone] Mckayla Blas REEL OPERATOR Unavailable [phone] Encounter Details Date Type Department Care Team (Late st Contact Info) Description 07/08/2023 [facility] [address] [place] [address] Mckayla Blas NP [address] [place] [address] Social History Tobacco Use Types Packs/Day Years [...] often do you attend chur ch or yazidi services? 1 to 4 times [...] Patient Health Questionnaire-2 Score 2 07/10/2023 [facility] - [...] PM EDT Office Visit [facility] [address] [place] [address] Mckayla Blas, SILVANO [address] [place] [address] 05/28/2025 10:30 AM EST Office Visit [facility] [address] [place] [address] Rain Souza MD [address] [place] [address] 02/01/2026 6:00 PM EDT Office Visit [facility] [address] [place] [address] Mckayla Blas NP [address] [place] [address] documented as of this encounter Visit Diagnoses Not on filedocumented in this encounter Care Teams Automotive Parts Person Relationship Specialty Start Date End Date Ty Amin MD PCP - General Family Medicine 01/05/23 09/19/23 Ty Amin MD [address] [place] [address] PCP - General Family Medicine 09/20/23 Mckayla Blas NP [address] [place] [address] PCP - [facility] 09/07/23 01/11/25 Mckayla Blas NP [address] [place] [address] Nurse Practitioner Family Medicine 09/20/23 documented as of this encounter
--- OUTSIDE RECORDS SUMMARY | 2025-03-02 08:57 | XMS_ITS | Encounter Summary ---
Author Organization [facility] Address [address] [place] [address] Care Team Providers Care Accounting Systems Analyst Name Role Phone yT Amin MD Primary Care Provider [phone] Mckayla Blas NP Unavailable [phone] Reason for Visit * Reason Comments Med Refill Encounter Details Date Type Department Care Team (Late st Contact Info) Description 02/26/2025 [facility]ill [facility] [address] [place] [address] Rain Souza MD [address] [place] [address] Type 2 diabetes mellitus with other circulatory complications (HCC) Social History Tobacco Use Types Packs/Day [...] How often do you attend chur or islam services? More than 4 times [...] Recorded Patient Health Questionnaire-2 Score 0 01/26/2025 [facility] - [...] in the past [address] [facility], were you homeless or living in a alf (including now)? No 08/26/2024 Comments Unknown Sex and Gender Information Value Date Recorded Sex Assigned at Not on file Legal Sex Female 6:50 PM EDT Gender Identity Not on file Sexual Orientation Not on file documented as of this encounter Miscellaneous Notes * Telephone Encounter - Amber Pinzon LPN - 02/27/2025 11:09 AM EDT MEDICATION SENT TO PHARMACY. documented in this encounter Plan of Treatment Upcoming Encounters Date Type Department Care Team (Late st Contact Info) Description 04/29/2025 6:00 PM EDT Office Visit [facility] [address] [place] [address] Mckayla Blas NP [address] [place] [address] 05/28/2025 10:30 AM EST Office Visit [facility] [place] [facility] [address] [place] [address] Rain Souza MD [address] [place] [address] 02/01/2026 6:00 PM EDT Office Visit [facility] [address] [place] [address] Mckayla Blas NP [address] [place] [address] documented as of this encounter Visit Diagnoses Diagnosis Type 2 diabetes mellitus with other circulatory complications (HCC) documented in this encounter Additional Health Concerns Assessment Noted Time PHQ-9 Depression Total Score: 3 01/17/20 10:08 AM EDT documented as of this encounter Care Teams Accounting Systems Analyst Relationship Specialty Start Date End Date Ty Amin MD [address] [place] [address] PCP - General Family Medicine 09/20/23 Mckayla Blas NP [address] [place] [address] Nurse Practitioner Family Medicine 09/20/23 documented as of this encounter
--- OUTSIDE RECORDS SUMMARY | 2025-03-02 08:57 | XMS_ITS | Encounter Summary ---
Author Organization [facility] Address [address] [place] [address] Care Team Providers Care Mainframe Programmer Name Role Phone Ty Amin MD Primary Care Provider [phone] Mckayla Blas NP Unavailable [phone] Reason for Visit * Reason Onset Date Comments Med Refill 02/27/2025 Encounter Details Date Type Department Care Team (Late st Contact Info) Description 02/27/2025 [facility]ill [facility] [address] [place] [address] Amber Pinzon LPN Type 2 diabetes mellitus [...] any time in the past 12 m [facility], were you homeless or living in a long term (including now)? No 08/26/2024 Comments Unknown Sex and Gender Information Value Date Recorded Sex Assigned at Not on file Legal Sex Female 6:50 PM EDT Gender Identity Not on file Sexual Orientation Not on file documented as of this encounter Miscellaneous Notes * Telephone Encounter - Amber Pinzon LPN - 02/27/2025 11:56 AM EDT MEDICATION SENT TO PHARMACY. documented in this encounter Plan of Treatment Upcoming Encounters Date Type Department Care Team (Late st Contact Info) Description 04/29/2025 6:00 PM EDT Office Visit [facility] [address] [place] [address] Mckayla Blas NP [address] [place] [address] 05/28/2025 10:30 AM EST Office Visit [facility] [place] [facility] [address] [place] [address] Rain Souza MD [address] [place] [address] 02/01/2026 6:00 PM EDT Office Visit [facility] [address] [place] [address] Mckayla Blas NP [address] [place] [address] documented as of this encounter Visit Diagnoses Diagnosis Type 2 diabetes mellitus with other circulatory complications (HCC) documented in this encounter Additional Health Concerns Assessment Noted Time PHQ-9 Depression Total Score: 3 01/17/20 10:08 AM EDT documented as of this encounter Care Teams Mainframe Programmer Relationship Specialty Start Date End Date Ty Amin MD [address] [place] [address] PCP - General Family Medicine 09/20/23 Mckayla Blas NP [address] [place] [address] Nurse Practitioner Family Medicine 09/20/23 documented as of this encounter
--- OUTSIDE RECORDS SUMMARY | 2025-03-02 09:09 | XMS_ITS | CCD ---
Author Organization [facility] Care Team Providers Care Fruit Cutter Name Role Phone James Benavidez Primary Care Provider JAMES BENAVIDEZ Primary Care Unavailable SHENRENATOEANISHAHAL Admitting Unavailable KYLAHEANISHAHAL Attending Unavailable AICHHOLZ, MCKAYLA Primary Care Unavailable AICHHOLZ, MCKAYLA Referring Unavailable AICHHOLZ, MCKAYLA J Primary Care Physician Tico, Stephanie Unavailable OLE RAMIREZ Attending Unavailable OLE RAMIREZ Consulting Unavailable AICHHOLZ, LINE MAINTAINER MCKAYLA Primary Care Unavailable OLE RAMIREZ Admitting Unavailable ANTONY SHRESTHA Consulting Unavailable ALONDRA ., UMBERTO Admitting Unavailable ALONDRA ., UMBERTO Attending Unavailable AICHHOLZ, LINE MAINTAINER MCKAYLA Primary Care Unavailable AFSANEH Loera, DR BOLANOS Consulting Unavailable MARYANNE POWER Consulting Unavailable GLENN KERR Consulting Unavailable YOMAIRA KERR Consulting Unavailable HATTIE GOFF Consulting Unavailable ALONDRA ., UMBERTO Consulting Unavailable TICO, STEPHANIE Attending Unavailable TICO, STEPHANIE Consulting Unavailable AICHHOLZ, LINE MAINTAINER MCKAYLA Primary Care Unavailable TICO, STEPHANIE Admitting Unavailable ARAUZ ., DR DUMONT Admitting Unavailable AICHHOLZ, LINE MAINTAINER MCKAYLA Primary Care Unavailable ARAUZ ., DR DUMONT Attending Unavailable ARAUZ ., DR DUMONT Consulting Unavailable COLLIN HUERTAS Consulting Unavailable CECILIA KAUFMAN Admitting Unavailable CECILIA KAUFMAN Attending Unavailable AICHHOLZ, LINE MAINTAINER MCKAYLA Primary Care Unavailable RAFAEL GONGORA Attending Unavailable RAFAEL GONGORA Admitting Unavailable AICHHOLZ, LINE MAINTAINER MCKAYLA Primary Care Unavailable AICHHOLZ, LINE MAINTAINER MCKAYLA Admitting Unavailable AICHHOLZ, LINE MAINTAINER MCKAYLA Primary Care Unavailable AICHHOLZ, LINE MAINTAINER MCKAYLA Attending Unavailable AICHHOLZ, LINE MAINTAINER MCKAYLA Consulting Unavailable LAKSHMIPATHY ., NARENDRANATH Attending Anette vailable LAKSHMIPATHY ., NARENDRANATH Consulting Anette vailable LAKSHMIPATHY ., NARENDRANATH Admitting Anette vailable AICHHOLZ, LINE MAINTAINER MCKAYLA Primary Care Unavailable VALENZUELA ., GIL Consulting Unavailable MORTENSEN ., DR CHAPARRO Aguillon Attending Unavailable MORTENSEN ., DR CHAPARRO Aguillon Admitting Unavailable AICHHOLZ, LINE MAINTAINER MCKAYLA Primary Care Unavailable VALENZUELA ., GIL Consulting Unavailable MORTENSEN ., DR CHAPARRO Aguillon Admitting Unavailable AICHHOLZ, LINE MAINTAINER MCKAYLA Primary Care Unavailable MORTENSEN ., DR CHAPARRO Aguillon Attending Unavailable HALKER ., SUBHASH Consulting Unavailable LAKSHMIPATHY ., NARENDRANATH Admitting Anette vailable LAKSHMIPATHY ., NARENDRANATH Attending Anette vailable AICHHOLZ, LINE MAINTAINER MCKAYLA Primary Care Unavailable MORTENSEN ., DR CHAPARRO Aguillon Attending Unavailable MORTENSEN ., DR CHAPARRO Aguillon Admitting Unavailable VALENZUELA ., GIL Consulting Unavailable AICHHOLZ, LINE MAINTAINER MCKAYLA Primary Care Unavailable VALENZUELA ., GIL Consulting Unavailable MORTENSEN ., DR CHAPARRO Aguillon Attending Unavailable MORTENSEN ., DR CHAPARRO Aguillon Admitting Unavailable AICHHOLZ, LINE MAINTAINER MCKAYLA Primary Care Unavailable HATTIE BRODERICK Attending Unavailable HATTIE BRODERICK Admitting Unavailable AICHHOLZ, LINE MAINTAINER MCKAYLA Primary Care Unavailable AICHHOLZ, LINE MAINTAINER MCKAYLA Admitting Unavailable AICHHOLZ, LINE MAINTAINER MCKAYLA Consulting Unavailable AICHHOLZ, LINE MAINTAINER MCKAYLA Primary Care Unavailable AICHHOLZ, LINE MAINTAINER MCKAYLA Attending Unavailable AICHHOLZ, LINE MAINTAINER MCKAYLA Primary Care Unavailable MISC, DR LESLIE Admitting Unavailable MISC, DR LESLIE Attending Unavailable MISC, DR LESLIE Consulting Unavailable DIAB ., MARIANO Admitting Unavailable DIAB ., MARIANO Attending Unavailable DIAB ., MARIANO Consulting Unavailable AICHHOLZ, LINE MAINTAINER MCKAYLA Primary Care Unavailable RICCO PICKARD Consulting Unavailable AICHHOLZ, LINE MAINTAINER MCKAYLA Admitting Unavailable AICHHOLZ, LINE MAINTAINER MCKAYLA Primary Care Unavailable AICHHOLZ, LINE MAINTAINER MCKAYLA Attending Unavailable AICHHOLZ, LINE MAINTAINER MCKAYLA Consulting Unavailable DR PATRICIA VELOZ Consulting Unavailable MELISSA .CECILIA Attending Unavailable MELISSA .CECILIA Admitting Unavailable DR PATRICIA VELOZ Consulting Unavailable AICHHOLZ, LINE MAINTAINER MCKAYLA Primary Care Unavailable TAMLYN ., CECILIA Consulting Unavailable FESTUS ., DR CHAPARRO Aguillon Attending Unavailable FESTUS ., DR CHAPARRO Aguillon Consulting Unavailable FESTUS ., DR CHAPARRO Aguillon Admitting Unavailable AICHHOLZ, LINE MAINTAINER MCKAYLA Primary Care Unavailable HATTIE BRODERICK Attending Unavailable HATTIE BRODERICK Consulting Unavailable HATTIE BRODERICK Admitting Unavailable AICHHOLZ, LINE MAINTAINER MCKAYLA Primary Care Unavailable HATTIE BAUTISTA Unavailable AICHHOLZ, SAYAD MCKAYLA Admitting Unavailable AICHHOLZ, LINE MAINTAINER MCKAYLA Attending Unavailable AICHHOLZ, LINE MAINTAINER MCKAYLA Consulting Unavailable AICHHOLZ, LINE MAINTAINER CMKAYLA Primary Care Unavailable Brennan PHIPPS, Ty Primary Care Provider Brennan PHIPPS, Ty Primary Care Provider Aichholz CHILDHOOD TEACHER, Mckayla Unavailable Aichholz CHILDHOOD TEACHER, Mckayla Unavailable Elbert ARAUZ Attending Unavailable SARAH VEGA Attending Unavailable AICHHOLZ, MCKAYLA Attending Unavailable LIBBYRAIN MENDEZ F Attending Unavailable AICHHOLZ, MCKAYLA Attending Unavailable AICHHOLZ, MCKAYLA Attending Unavailable AICHHOLZ, MCKAYLA Attending Unavailable LIBBY, AHMAD F Attending Unavailable AICHHOLZ, MCKAYLA Attending Unavailable LIBBY, AHMAD F Attending Unavailable LIBBY, AHMAD F Referring Unavailable AICHHOLZ, MCKAYLA Attending Unavailable DAKOTAH BRIDGES Attending Unavailable AMI ORO Attending Unavailable Flynn Urias DPM Attending Unavail le Allergies Allergy Classification Reported Allergen(s) Allergy Type Date of Onset Reaction(s) Facility (1 source) No Known Medication Allergies; Translations: [No Known Medication Allergies] Propensity to adverse reactions (disorder) [facility] Repository Medications Current Medications Medication [...] Start Date: 02/06/22 Status: Ordered HYDROcodone-acet aminophen (Edson) 5-325 MG tablet 1 tablet 3 (three) times a day as needed for severe pain. Active take 1 tablet by vandana twice daily as needed Edson 5-325 MG 1 tablet as needed Orally [...] every week ergocalciferol (Vitamin D2) 1.25 MG (49461 UT) capsule Indications: Vitamin D deficiency, unspecified Take 1 capsule (1.25 mg) by mouth 1 (one) time per week 12 capsule 1 01/16/2025 04/10/2025 Active Start: 10-27-2024 End: 01-19-2025 take 1 capsule by mouth two times weekly ergocalciferol (Vitamin D2) 1.25 MG (97215 UT) capsule Indications: Vitamin D deficiency, unspecified Take 1 capsule (1.25 mg) by mouth 2 (two) times a week 24 capsule 1 10/27/2024 01/19/2025 Active Start: 04-06-2024 End: 10-27-2024 take 1 capsule by mouth every week ergocalciferol (Vitamin D2) 1.25 MG (57848 UT) capsule Indications: Vitamin D deficiency, unspecified [...] 02-06-2022 Chronic Other aftercare (1 source) Other snf (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 therapy; Translations: [OTH 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; Translations: [[facility] CURRENT USE OF INSULIN] Onset: 12-05-2022 Episodic Other aftercare (20 sources) Long-term current use of inhaled steroid; Translations: [bed bug exterminator (current) use of inhaled steroids] Onset: 08-27-2024 [...] Range Facility Orders Onlyon 01-30-2025 Orders Only [id number] Mitzi Macias 1970 F Date Provider Department Center 01/30/2025 [id number], HISTORICAL [facility] Family History Problem Relation Age of Onset Heart attack Paternal Grandmother Family Status - Relation Status Age at Mother Father Paternal Grandmother Normal [facility] CA ECHO DOPPLER COMPLETEon 0 01-29-2025 [place] [address] Cardiology Report Signed Patient: MITZI MACIAS MR#: [id number] : 1970 Acct:[id number] Age/Sex: 54 / F ADM Date: 01/29/25 Loc: CARD Attending Dr: AMI ORO APRN Ordering Physician: AMI ORO APRN Date of Service: 01/29/25 Procedure(s): CA echo doppler complete Accession Number(s): [id number] cc: Mckayla Blas CHILDHOOD TEACHER; AMI ORO APRN Patient Name: MITZI MACIAS MR#: [id number] : 1970 Exam Date: 01/29/2025 Ordering Doctor: [...] HERRERA Signed By: 01/29/251839 DD/ 39 TD/TT: Aluminum Siding Applicator: [facility] Radiology, Radiologist, MD - 01/29/2025 [place] [address] Cardiology Report Signed Patient: MITZI MACIAS MR#: [id number] : 1970 Acct:[id number] Age/Sex: 54 / F ADM Date: 01/29/25 Loc: CARD Attending Dr: AMI ORO APRN Ordering Physician: AMI ORO APRN Date of Service: 01/29/25 Procedure(s): CA echo doppler complete Accession Number(s): [id number] cc: Mckayla Blas CHILDHOOD TEACHER; AMI ORO APRN Patient Name: MITZI MACIAS MR#: [id number] : 1970 Exam Date: 01/29/2025 Ordering Doctor: [...] HERRERA Signed By: 01/29/251839 DD/ 39 TD/TT: Aluminum Siding Applicator: [facility] Radiology Study observation (narrative) [facility] CA ECHO DOPPLER COMPLETEOrde red By: Radiologist Radiology on 01-29-2025 [facility] Work Phone: Glucose (Bld) [Mass/Vol]on 0 01-29-2025 Glucose Blood, POC 121 mg/dL [facility] Laboratory - Hematology and Cell countson 01-29-2025 HbA1c (Bld) [Mass fraction] 8.4 % [facility] No Panel Informationon 01-29 Interpretation and review of laboratory results Abnormal [facility] Office Visiton 01-06-2025 Follow-up visit [id number] MaciasMitzi lee Gilberto 1970 F Date Provider Department Center 01/06/2025 AMI SARABIA [facility] Family History Problem Relation Age of Onset Heart attack Paternal Grandmother Family Status - Relation Status Age at Mother Father Paternal Grandmother Level of Service:32719 HI OFFICE/OUTPATIENT ESTABLISHED MOD MDM 30 MIN Reason for Visit and Comments: Congestive Heart Failure [127] Hypertension [247343] Hyperlipidemia [182] Normal [facility] 36on 10-21-2024 36 Regarding lab results from 10/08/2024: MD Mickie Merritt MA Lipids, ALT AST, and BMP are normal. HbA1c was not performed. Continue current management. LM on patient's VM. Normal [facility] Glucose (Bld) [Mass/Vol]Orde red By: Mica Sauceda on 10-08-2024 Glucose Blood, POC 97 mg/dL [facility] Laboratory - Hematology and Cell countson 10-08-2024 HbA1c (Bld) [Mass fraction] 7.4 % [facility] No Panel InformationOrdered By: Mica Sauceda on 10-08-2024 [facility] TBH UA (CLEAN/CATCH) MICROSC OPIC IF INDICATEon 10-08-2024 BILIRUBIN URINE Negative NEGATIVE [facility] BLOOD URINE Negative NEGATIVE [facility] Clarity (U) CLEAR CLEAR [facility] Color (U) YELLOW YELLOW [facility] GLUCOSE URINE UA Negative NEGATIVE mg/dL [facility] Interpretation and review of laboratory results Abnormal [facility] Ketones Ql (U) Negative NEGATIVE mg/dL [facility] Leukocyte esterase Test strip Ql (U) Negative NEGATIVE [facility] NITRITE URINE Negative NEGATIVE [facility] pH (U) 5.5 [pH] 5.0 - 9.0 [facility] Protein (U) [Mass/Vol] 30 mg/dL Abnormal NEG/TRACE NO [facility] SPECIFIC GRAVITY URINE >=1.030 Abnormal 1.005 - 1.025 [facility] URINE MICROSCOPIC INDICATED YES [facility] UROBILINOGEN URINE 1.0 EU/dL 0.2 - 1.0 EU/dL [facility] ALL CBC WITH AUTO DIFFon BASOPHILS ABSOLUTE AUTO 0.1 [facility] Basophils/100 WBC (Bld) 0.5 % 0.2 - 2.0 % [facility] Eosinophils/100 WBC (Bld) 1.9 % 0.9 - 7.0 % [facility] Erythrocyte distribution width (RBC) [Ratio] 14.6 % 11.0 - 15.0 % [facility] Hematocrit (Bld) [Volume fraction] 50.9 % High 36.0 - 48.0 % [facility] Hemoglobin (Bld) [Mass/Vol] 16.1 g/dL High 12.0 - 16.0 g/dL [facility] IMMATURE GRANULOCYTES ABS AUTO 0.04 High [facility] Immature granulocytes/100 WBC (Bld) 0.3 % 0.0 - 0.5 % [facility] Interpretation and review of laboratory results Abnormal [facility] LYMPHOCYTES ABSOLUTE AUTO 3.2 [facility] Lymphocytes/100 WBC (Bld) 25.1 % 20.5 - 60.0 % [facility] MCH (RBC) [Entitic mass] 29.2 pg 26.7 - 34.0 pg [facility] MCHC (RBC) [Mass/Vol] 31.6 g/dL 29.9 - 35.2 g/dL [facility] MCV (RBC) [Entitic vol] 92.2 fL 81.0 - 99.0 fL [facility] MONOCYTES ABSOLUTE AUTO 0.7 [facility] Monocytes/100 WBC (Bld) 5.2 % 1.7 - 12.0 % [facility] NEUTROPHILS ABSOLUTE AUTO 8.6 High [facility] Neutrophils/100 WBC (Bld) 67 % 43.0 - 75.0 % [facility] Platelet mean volume (Bld) [Entitic vol] 12.8 fL 9.5 - 13.5 fL [facility] EO # 0.2 [facility] PLT 122 Low [facility] RBC 5.52 High [facility] WBC 12.8 High [facility] Office Visiton 08-08-2024 Follow-up visit [id number] Mitzi Macias 1970 F Date Provider Department Center 08/08/2024 [id number] BRIDGES CARD [facility] Family History Problem Relation Age of Onset Heart attack Paternal Grandmother Family Status - Relation Status Age at Paternal Grandmother Level of Service:36297 HI OFFICE/OUTPATIENT ESTABLISHED MOD MDM 30 MIN Reason for Visit and Comments: Congestive Heart Failure [127] - Denies chest pain, SOB, and palpitations. Hypertension [944743] Hyperlipidemia [182] LVH [Other] Edema [[id number]] - Denies worsening edema. She sees wound care for RLE ulcer. She was seeing the vein specialists here in town but they are moving to [place] in a few weeks. Normal [facility] Glucose (Bld) [Mass/Vol]Orde red By: Mica Sauceda on 05-27-2024 Glucose Blood, POC 158 mg/dL [facility] Laboratory - Hematology and Cell countson 05-27-2024 HbA1c (Bld) [Mass fraction] 9.2 % [facility] No Panel InformationOrdered By: Mica Sauceda on 05-27-2024 [facility] CREATININEon 05-12-2024 Creatinine [Mass/Vol] 0.92 mg/dL 0.55 - 1.02 mg/dL [facility] GFR/1.73 sq M.predicted CKD-EPI (S/P/Bld) [Vol rate/Area] >60 >=60 mL/min/1.73m 2 [facility] EGFR-NON AF KITTITIAN >60 >=60 mL/min/1.73m 2 [facility] CBC AUTO DIFFon 12-06-2022 BASO # 0.0 103/ul Normal 0.0-0.1 [facility] Comment on above: Performed By: #### C BC #### [facility] [address] [place] [address] Dr. Ashlie Hills Basophils/100 WBC (Bld) 0.1 % Critically low 0.2-2.0 [facility] Comment on above: Performed By: #### C BC #### [facility] [address] [place] [address] Dr. Ashlie Hills EO # 0.0 103/ul Normal 0.0-0.7 [facility] Comment on above: Performed By: #### C BC #### [facility] [address] [place] [address] Dr. Ashlie Hills Eosinophils/100 WBC (Bld) 0.0 % Critically low 0.9-7.0 [facility] Comment on above: Performed By: #### C BC #### [facility] [address] [place] [address] Dr. Ashlie Hills Erythrocyte distribution width (RBC) [Ratio] 14.9 % Normal 11.0-15.0 [facility] Comment on above: Performed By: #### C BC #### [facility] [address] [place] [address] Dr. Ashlie Hills Hematocrit (Bld) [Volume fraction] 46.2 % Normal 36.0-48.0 [facility] Comment on above: Performed By: #### C BC #### [facility] [address] [place] [address] Dr. Ashlie Hills Hemoglobin (Bld) [Mass/Vol] 14.7 g/dL Normal 12.0-16.0 [facility] Comment on above: Performed By: #### C BC #### [facility] [address] [place] [address] Dr. Ashlie Hills IG # 0.06 10e3/ul Critically high 0.00-0.03 [facility] Comment on above: Performed By: #### C BC #### [facility] [address] [place] [address] Dr. Ashlie Hills IG % 0.4 % Normal 0.0-0.5 [facility] Comment on above: Performed By: #### C BC #### [facility] [address] [place] [address] Dr. Ashlie Hills LYMPH # 1.3 103/ul Normal 1.2-3.8 [facility] Comment on above: Performed By: #### C BC #### [facility] [address] [place] [address] Dr. Ashlie Hills Lymphocytes/100 WBC (Bld) 9.4 % Critically low 20.5-60.0 [facility] Comment on above: Performed By: #### C BC #### [facility] [address] [place] [address] Dr. Ashlie Hills MANUAL DIFF REQ NO Normal [facility] Comment on above: Performed By: #### C BC #### [facility] [address] [place] [address] Dr. Ashlie Hills MCH (RBC) [Entitic mass] 28.4 pg Normal 26.7-34.0 [facility] Comment on above: Performed By: #### C BC #### [facility] [address] [place] [address] Dr. Ashlie Hills MCHC (RBC) [Mass/Vol] 31.8 g/dL Normal 29.9-35.2 [facility] Comment on above: Performed By: #### C BC #### [facility] [address] [place] [address] Dr. Ashlie Hills MCV (RBC) [Entitic vol] 89.4 fL Normal 81.0-99.0 [facility] Comment on above: Performed By: #### C BC #### [facility] [address] [place] [address] Dr. Ashlie Hills MONO # 0.5 103/ul Normal 0.3-0.8 [facility] Comment on above: Performed By: #### C BC #### [facility] [address] [place] [address] Dr. Ashlie Hills Monocytes/100 WBC (Bld) 3.4 % Normal 1.7-12.0 [facility] Comment on above: Performed By: #### C BC #### [facility] [address] [place] [address] [address] Ashlie Hills NEUT # 11.8 103/ul Critically high 1.4-6.5 [facility] Comment on above: Performed By: #### C BC #### [facility] [address] [place] [address] [address] Ashlie Hills Neutrophils/100 WBC (Bld) 86.7 % Critically high 43.0-75.0 [facility] Comment on above: Performed By: #### C BC #### [facility] [address] [place] [address] [address] Ashlie Hills Platelet mean volume (Bld) [Entitic vol] 12.6 fL Normal 9.5-13.5 [facility] Comment on above: Performed By: #### C BC #### [facility] [address] [place] [address] [address] Ashlie Hills PLT 133 103/ul Critically low 150-450 [facility] Comment on above: Performed By: #### C BC #### [facility] [address] [place] [address] [address] Ashlie Hills RBC 5.17 106/ul Normal 4.20-5.40 [facility] Comment on above: Performed By: #### C BC #### [facility] [address] [place] [address] [address] Ashlie Hills WBC 13.6 103/ul Critically high 4.0-11.0 [facility] Comment on above: Performed By: #### C BC #### [facility] [address] [place] [address] [address] [address] Ashlie Hills MAGNESIUMon 12-06-2022 Magnesium [Mass/Vol] 2.2 mg/dL Normal 1.8-2.4 [facility] Comment on above: Performed By: #### I NFLUAB #### [facility] [address] [place] [address] [address] Ashlie Hills POINT OF CARE GLUCOSEon - Glucose [Mass/Vol] 340 mg/dL Critically high 74-106 [facility] Comment on above: Performed By: #### P OCGLUC #### [facility] [address] [place] [address] Dr. Ashlie Hills Glucose [Mass/Vol] 276 mg/dL Critically high -106 [facility] Comment on above: Performed By: #### C BC #### [facility] [address] [place] [address] Dr. Ashlie Hills Glucose [Mass/Vol] 333 mg/dL Critically high -106 [facility] Comment on above: Performed By: #### C BC #### [facility] [address] [place] [address] Dr. Ashlie Hills PROF CHEM 8 (BAS METB)on Anion gap [Moles/Vol] 10.9 mmol/L Normal [facility] Comment on above: Performed By: #### I NFLUAB #### [facility] [address] [place] [address] Dr. Ashlie Hills Calcium [Mass/Vol] 9.3 mg/dL Normal 8.5-10.1 [facility] Comment on above: Performed By: #### I NFLUAB #### [facility] [address] [place] [address] Dr. Ashlie Hills Chloride [Moles/Vol] 103 mmol/L Normal 98-107 [facility] Comment on above: Performed By: #### I NFLUAB #### [facility] [address] [place] [address] Dr. Ashlie Hills CO2 [Moles/Vol] 31.2 mmol/L Normal 21.0-32.0 [facility] Comment on above: Performed By: #### I NFLUAB #### [facility] [address] [place] [address] Dr. Ashlie Hills Creatinine [Mass/Vol] 0.96 mg/dL Normal 0.55-1.02 [facility] Comment on above: Performed By: #### I NFLUAB #### [facility] [address] [place] [address] Dr. Ashlie Hills EGFR-AF KITTITIAN >60 Normal >=60 [facility] Comment on above: Performed By: #### I NFLUAB #### [facility] [address] [place] [address] Dr. Ashlie Hills EGFR-NON AF KITTITIAN >60 Normal >=60 [facility] Comment on above: Performed By: #### I NFLUAB #### [facility] [address] [place] [address] Dr. Ashlie Hills Glucose [Mass/Vol] 288 mg/dL Critically high 74-[address] [facility] Comment on above: Performed By: #### I NFLUAB #### [facility] [address] [place] [address] Dr. Ashlie Hills Potassium [Moles/Vol] 5.1 mmol/L Normal 3.5-5.1 [facility] Comment on above: Performed By: #### I NFLUAB #### [facility] [address] [place] [address] Dr. Ashlie Hills Sodium [Moles/Vol] 140 mmol/L Normal 136-145 [facility] Comment on above: Performed By: #### I NFLUAB #### [facility] [address] [place] [address] Dr. Ashlie Hills Urea nitrogen [Mass/Vol] 30.0 mg/dL Critically high 7.0-18.0 [facility] Comment on above: Performed By: #### I NFLUAB #### [facility] [address] [place] [address] Dr. Ashlie Hills Urea nitrogen/Creatinine [Mass ratio] 31.2 mg/mg Normal [facility] Comment on above: Performed By: #### I NFLUAB #### [facility] [address] [place] [address] Dr. Ashlie Hills CBC AUTO DIFFon 12-05-2022 BASO # 0.0 103/ul Normal 0.0-0.1 [facility] Comment on above: Performed By: #### C BC #### [facility] [address] [place] [address] Dr. Ashlie Hills Basophils/100 WBC (Bld) 0.4 % Normal 0.2-2.0 [facility] Comment on above: Performed By: #### C BC #### [facility] [address] [place] [address] Dr. Ashlie Hills EO # 0.0 103/ul Normal 0.0-0.7 [facility] Comment on above: Performed By: #### C BC #### [facility] [address] [place] [address] Dr. Ashlie Hills Eosinophils/100 WBC (Bld) 0.0 % Critically low 0.9-7.0 [facility] Comment on above: Performed By: #### C BC #### [facility] [address] [place] [address] Dr. Ashlie Hills Erythrocyte distribution width (RBC) [Ratio] 14.8 % Normal 11.0-15.0 [facility] Comment on above: Performed By: #### C BC #### [facility] [address] [place] [address] Dr. Ashlie Hills Hematocrit (Bld) [Volume fraction] 49.9 % Critically high 36.0-48.0 [facility] Comment on above: Performed By: #### C BC #### [facility] [address] [place] [address] Dr. Ashlie Hills Hemoglobin (Bld) [Mass/Vol] 15.7 g/dL Normal 12.0-16.0 [facility] Comment on above: Performed By: #### C BC #### [facility] [address] [place] [address] Dr. Ashlie Hills IG # 0.04 10e3/ul Critically high 0.00-0.03 [facility] Comment on above: Performed By: #### C BC #### [facility] [address] [place] [address] Dr. Ashlie Hills IG % 0.5 % Normal 0.0-0.5 [facility] Comment on above: Performed By: #### C BC #### [facility] [address] [place] [address] Dr. Ashlie Hills LYMPH # 1.1 103/ul Critically low 1.2-3.8 [facility] Comment on above: Performed By: #### C BC #### [facility] [address] [place] [address] Dr. Ashlie Hills Lymphocytes/100 WBC (Bld) 12.7 % Critically low 20.5-60.0 [facility] Comment on above: Performed By: #### C BC #### [facility] [address] [place] [address] Dr. Ashlie Hills MANUAL DIFF REQ NO Normal [facility] Comment on above: Performed By: #### C BC #### [facility] [address] [place] [address] Dr. Ashlie Hills MCH (RBC) [Entitic mass] 28.1 pg Normal 26.7-34.0 [facility] Comment on above: Performed By: #### C BC #### [facility] [address] [place] [address] Dr. Ashlie Hills MCHC (RBC) [Mass/Vol] 31.5 g/dL Normal 29.9-35.2 [facility] Comment on above: Performed By: #### C BC #### [facility] [address] [place] [address] Dr. Ashlie Hills MCV (RBC) [Entitic vol] 89.3 fL Normal 81.0-99.0 [facility] Comment on above: Performed By: #### C BC #### [facility] [address] [place] [address] Dr. Ashlie Hills MONO # 0.1 103/ul Critically low 0.3-0.8 [facility] Comment on above: Performed By: #### C BC #### [facility] [address] [place] [address] Dr. Ashlie Hills Monocytes/100 WBC (Bld) 1.3 % Critically low 1.7-12.0 [facility] Comment on above: Performed By: #### C BC #### [facility] [address] [place] [address] Dr. Ashlie Hills NEUT # 7.2 103/ul Critically high 1.4-6.5 [facility] Comment on above: Performed By: #### C BC #### [facility] [address] [place] [address] Dr. Ashlie Hills Neutrophils/100 WBC (Bld) 85.1 % Critically high 43.0-75.0 [facility] Comment on above: Performed By: #### C BC #### [facility] [address] [place] [address] Dr. Ashlie Hills Platelet mean volume (Bld) [Entitic vol] 12.2 fL Normal 9.5-13.5 [facility] Comment on above: Performed By: #### C BC #### [facility] [address] [place] [address] Dr. Ashlie Hills PLT 116 103/ul Critically low 150-450 [facility] Comment on above: Performed By: #### C BC #### [facility] [address] [place] [address] Dr. Ashlie Hills RBC 5.59 106/ul Critically high 4.20-5.40 [facility] Comment on above: Performed By: #### C BC #### [facility] [address] [place] [address] Dr. Ashlie Hills WBC 8.5 103/ul Normal 4.0-11.0 [facility] Comment on above: Performed By: #### C BC #### [facility] [address] [place] [address] Dr. Ashlie Hills CTA CHEST WO W [...] above: Performed By: #### P OCGLUC #### [facility] [address] [place] [address] [address] Ashlie Hills POINT OF CARE GLUCOSEon 11-08 Glucose [Mass/Vol] 293 mg/dL Critically high 74-106 [facility] Comment on above: Performed By: #### P OCGLUC #### [facility] [address] [place] [address] [address] Ashlie Hills Glucose [Mass/Vol] 269 mg/dL Critically high 74-106 [facility] Comment on above: Performed By: #### P OCGLUC #### [facility] [address] [place] [address] [address] Ashlie Hills Glucose [Mass/Vol] 223 mg/dL Critically high -106 [facility] Comment on above: Performed By: #### C VDAGS #### [facility] [address] [place] [address] [address] Ashlie Hills PROF CHEM 8 (BAS METB)on Anion gap [Moles/Vol] 11.6 mmol/L Normal [facility] [place] Comment on above: Performed By: #### P OCGLUC #### [facility] [address] [place] [address] [address] Ashlie Hills Calcium [Mass/Vol] 9.2 mg/dL Normal 8.5-10.1 [facility] Comment on above: Performed By: #### P OCGLUC #### [facility] [address] [place] [address] [address] Ashlie Hills Chloride [Moles/Vol] 102 mmol/L Normal 98-107 [facility] Comment on above: Performed By: #### P OCGLUC #### [facility] [address] [place] [address] [address] Ashlie Hills CO2 [Moles/Vol] 28.7 mmol/L Normal 21.0-32.0 [facility] Comment on above: Performed By: #### P OCGLUC #### [facility] [address] [place] [address] [address] Ashlie Hills Creatinine [Mass/Vol] 1.04 mg/dL Critically high 0.55-1.02 [facility] Comment on above: Performed By: #### P OCGLUC #### [facility] [address] [place] [address] [address] Ashlie Hills EGFR-AF [place]ITT[place]IAN >60 Normal >=60 [facility] Comment on above: Performed By: #### P OCGLUC #### [facility] [address] [place] [address] [address] Ashlie Hills EGFR-NON AF [place]ITT[place]IAN 56 mL/min/1.73m2 Critically low >=60 [facility] Comment on above: Performed By: #### P OCGLUC #### [facility] [address] [place] [address] [address] Ashlie Hills Glucose [Mass/Vol] 231 mg/dL Critically high 74-106 [facility] Comment on above: Performed By: #### P OCGLUC #### [facility] [address] [place] [address] [address] [address] Ashlie Hills Potassium [Moles/Vol] 4.3 mmol/L Normal 3.5-5.1 [facility] Comment on above: Performed By: #### P OCGLUC #### [facility] [address] [place] [address] Dr. Ashlie Hills Sodium [Moles/Vol] 138 mmol/L Normal 136-145 [facility] Comment on above: Performed By: #### P OCGLUC #### [facility] [address] [place] [address] Dr. Ashlie Hills Urea nitrogen [Mass/Vol] 17.0 mg/dL Normal 7.0-18.0 [facility] Comment on above: Performed By: #### P OCGLUC #### [facility] [address] [place] [address] Dr. Ashlie Hills Urea nitrogen/Creatinine [Mass ratio] 16.3 mg/mg Normal [facility] Comment on above: Performed By: #### P OCGLUC #### [facility] [address] [place] [address] Dr. Ashlie Hills RESPIRATORY PANEL PLUSon Adenovirus Not detected Normal NOT DETECTED [facility] Comment on above: Performed By: #### C VDAGS #### [facility] [address] [place] [address] Dr. Ashlie Shaffer. Parapertusis Not detected Normal NOT DETECTED [facility] Comment on above: Performed By: #### C VDAGS #### [facility] [address] [place] [address] Dr. Ashlie Hills B. Pertussis Not detected Normal NOT DETECTED [facility] Comment on above: Performed By: #### C VDAGS #### [facility] [address] [place] [address] Dr. Ashlie Hills Chlamydia Pneumoniae Not detected Normal NOT DETECTED [facility] Comment on above: Performed By: #### C VDAGS #### [facility] [address] [place] [address] Dr. Ashlie Hills Coronavirus 229E Not detected Normal NOT DETECTED [facility] Comment on above: Performed By: #### C VDAGS #### [facility] [address] [place] [address] Dr. Ashlie Hills Coronavirus HKU1 Not detected Normal NOT DETECTED [facility] Comment on above: Performed By: #### C VDAGS #### [facility] [address] [place] [address] Dr. Ashlie Hills Coronavirus NL63 Not detected Normal NOT DETECTED [facility] Comment on above: Performed By: #### C VDAGS #### [facility] [address] [place] [address] Dr. Ashlie Hills Coronavirus OC43 Not detected Normal NOT DETECTED [facility] Comment on above: Performed By: #### C VDAGS #### [facility] [address] [place] [address] Dr. Ashlie Hills Influenza A H1 Not detected Normal NOT DETECTED [facility] Comment on above: Performed By: #### C VDAGS #### [facility] [address] [place] [address] Dr. Ashlie Hills Influenza A H1 2009 Not detected Normal NOT DETECTED [facility] Comment on above: Performed By: #### C VDAGS #### [facility] [address] [place] [address] Dr. Ashlie Hills Influenza A H3 Not detected Normal NOT DETECTED [facility] Comment on above: Performed By: #### C VDAGS #### [facility] [address] [place] [address] Dr. Ashlie Hills Influenza B Not detected Normal NOT DETECTED [facility] Comment on above: Performed By: #### C VDAGS #### [facility] [address] [place] [address] Dr. Ashlie Hills Metapneumovirus Not detected Normal NOT DETECTED [facility] Comment on above: Performed By: #### C VDAGS #### [facility] [address] [place] [address] Dr. Ashlie Hills Mycoplas. Pneumoniae Not detected Normal NOT DETECTED [facility] Comment on above: Performed By: #### C VDAGS #### [facility] [address] [place] [address] Dr. Ashlie Hills Parainfluenza 1 Not detected Normal NOT DETECTED [facility] Comment on above: Performed By: #### C VDAGS #### [facility] [address] [place] [address] Dr. Ashlie Hills Parainfluenza 2 Not detected Normal NOT DETECTED [facility] Comment on above: Performed By: #### C VDAGS #### [facility] [address] [place] [address] Dr. Ashlie Hills Parainfluenza 3 Detected Abnormal NOT DETECTED [facility] Comment on above: Performed By: #### C VDAGS #### [facility] [address] [place] [address] Dr. Ashlie Hills Parainfluenza 4 Not detected Normal NOT DETECTED [facility] Comment on above: Performed By: #### C VDAGS #### [facility] [address] [place] [address] Dr. Ashlie Hills Rhino/Enterovirus Not detected Normal NOT DETECTED [facility] Comment on above: Performed By: #### C VDAGS #### [facility] [address] [place] [address] Dr. Ashlie Hills RP2 Header 1 RESPIRATORY PANEL: VIRUSES Normal [facility] Comment on above: Performed By: #### C VDAGS #### [facility] [address] [place] [address] Dr. Ashlie DE PAZ Header 2 RESPIRATORY PANEL: BACTERIA Normal [facility] Comment on above: Performed By: #### C VDAGS #### [facility] [address] [place] [address] Dr. Ashlie Hills RSV Not detected Normal NOT DETECTED [facility] Comment on above: Performed By: #### C VDAGS #### [facility] [address] [place] [address] Dr. Ashlie Hills SARS-CoV-2 (COVID-19) RNA MADDY+probe Ql (Unsp spec) Not detected Normal NOT DETECTED [facility] Comment on above: Performed By: #### C VDAGS #### [facility] [address] [place] [address] Dr. Ashlie Hills XR CHEST 1 Von [...] above: Performed By: #### C BC #### [facility] [address] [place] [address] Dr. Ashlie Hills ALLENS TEST Positive Normal [facility] Comment on above: Performed By: #### C BC #### [facility] [address] [place] [address] Dr. Ashlie Hills Base excess Calc (Bld) [Moles/Vol] 5.4 mmol/L Critically high -2.0-2.0 [facility] Comment on above: Performed By: #### C BC #### [facility] [address] [place] [address] Dr. Ashlie Hills BIPAP PRESSURE Normal [facility] Comment on above: Performed By: #### C BC #### [facility] [address] [place] [address] Dr. Ashlie Hills CPAP Normal [facility] Comment on above: Performed By: #### C BC #### [facility] [address] [place] [address] Dr. Ashlie Hills FIO2 Normal [facility] Comment on above: Performed By: #### C BC #### [facility] [address] [place] [address] Dr. Ashlie Hills HCO3 (Bld) [Moles/Vol] 30.8 mmol/L Critically high 22.0-26 .0 [facility] Comment on above: Performed By: #### C BC #### [facility] [address] [place] [address] Dr. Ashlie Hills LPM [facility] Comment on above: Performed By: #### C BC #### [facility] [address] [place] [address] Dr. Ashlie Hills MINUTE VOLUME Normal [facility] Comment on above: Performed By: #### C BC #### [facility] [address] [place] [address] Dr. Ashlie Hills Oxygen (Bld) [Partial pressure] 46.3 mm[Hg] Critically low 80.0-100.0 [facility] Comment on above: Performed By: #### C BC #### [facility] [address] [place] [address] Dr. Ashlie Hills Oxygen saturation in Blood 83.9 % Critically low 95.0-100.0 [facility] Comment on above: Performed By: #### C BC #### [facility] [address] [place] [address] Dr. Ashlie Hills PCO2 54.2 mmHg Critically high 35.0-45.0 [facility] Comment on above: Performed By: #### C BC #### [facility] [address] [place] [address] Dr. Ashlie Hills PEEP [facility] Comment on above: Performed By: #### C BC #### [facility] [address] [place] [address] Dr. Ashlie Hills pH (Bld) 7.363 [pH] Normal 7.350-7.450 [facility] Comment on above: Performed By: #### C BC #### [facility] [address] [place] [address] Dr. Ashlie Hills PIP [facility] Comment on above: Performed By: #### C BC #### [facility] [address] [place] [address] Dr. Ashlie Hills PS [facility] Comment on above: Performed By: #### C BC #### [facility] [address] [place] [address] Dr. Ashlie Hills PUNCTURE SITE LR Normal [facility] Comment on above: Performed By: #### C BC #### [facility] [address] [place] [address] Dr. Ashlie Hills RATE [facility] Comment on above: Performed By: #### C BC #### [facility] [address] [place] [address] Dr. Ashlie Hills VENT MODE [facility] Comment on above: Performed By: #### C BC #### [facility] [address] [place] [address] Dr. Ashlie Hills [facility] Comment on above: Performed By: #### C BC #### [facility] [address] [place] [address] Dr. Ashlie Hills BNPon 12-04-2022 Natriuretic peptide B (Bld) [Mass/Vol] 76.0 pg/mL Normal <=900.0 [facility] Comment on above: Performed By: #### P OCGLUC #### [facility] [address] [place] [address] Dr. Ashlie Hills CBC AUTO DIFFon 12-04-2022 BASO # 0.1 103/ul Normal 0.0-0.1 [facility] Comment on above: Performed By: #### C BC #### [facility] [address] [place] [address] Dr. Ashlie Hills Basophils/100 WBC (Bld) 0.6 % Normal 0.2-2.0 [facility] Comment on above: Performed By: #### C BC #### [facility] [address] [place] [address] Dr. Ashlie Hills EO # 0.2 103/ul Normal 0.0-0.7 [facility] Comment on above: Performed By: #### C BC #### [facility] [address] [place] [address] Dr. Ashlie Hills Eosinophils/100 WBC (Bld) 1.9 % Normal 0.9-7.0 [facility] Comment on above: Performed By: #### C BC #### [facility] [address] [place] [address] Dr. Ashlie Hills Erythrocyte distribution width (RBC) [Ratio] 15.0 % Normal 11.0-15.0 [facility] Comment on above: Performed By: #### C BC #### [facility] [address] [place] [address] Dr. Ashlie Hills Hematocrit (Bld) [Volume fraction] 49.1 % Critically high 36.0-48.0 [facility] Comment on above: Performed By: #### C BC #### [facility] [address] [place] [address] Dr. Ashlie Hills Hemoglobin (Bld) [Mass/Vol] 15.6 g/dL Normal 12.0-16.0 [facility] Comment on above: Performed By: #### C BC #### [facility] [address] [place] [address] Dr. Ashlie Hills IG # 0.02 10e3/ul Normal 0.00-0.03 [facility] Comment on above: Performed By: #### C BC #### [facility] [address] [place] [address] Dr. Ashlie Hills IG % 0.2 % Normal 0.0-0.5 [facility] Comment on above: Performed By: #### C BC #### [facility] [address] [place] [address] Dr. Ashlie Hills LYMPH # 2.8 103/ul Normal 1.2-3.8 [facility] Comment on above: Performed By: #### C BC #### [facility] [address] [place] [address] Dr. Ashlie Hills Lymphocytes/100 WBC (Bld) 29.9 % Normal 20.5-60.0 [facility] Comment on above: Performed By: #### C BC #### [facility] [address] [place] [address] Dr. Ashlie Hills MANUAL DIFF REQ NO Normal [facility] Comment on above: Performed By: #### C BC #### [facility] [address] [place] [address] Dr. Ashlie Hills MCH (RBC) [Entitic mass] 28.5 pg Normal 26.7-34.0 [facility] Comment on above: Performed By: #### C BC #### [facility] [address] [place] [address] Dr. Ashlie Hills MCHC (RBC) [Mass/Vol] 31.8 g/dL Normal 29.9-35.2 [facility] Comment on above: Performed By: #### C BC #### [facility] [address] [place] [address] Dr. Ashlie Hills MCV (RBC) [Entitic vol] 89.8 fL Normal 81.0-99.0 [facility] Comment on above: Performed By: #### C BC #### [facility] [address] [place] [address] Dr. Ashlie Hills MONO # 1.0 103/ul Critically high 0.3-0.8 [facility] Comment on above: Performed By: #### C BC #### [facility] [address] [place] [address] Dr. Ashlie Hills Monocytes/100 WBC (Bld) 10.6 % Normal 1.7-12.0 [facility] Comment on above: Performed By: #### C BC #### [facility] [address] [place] [address] Dr. Ashlie Hills NEUT # 5.3 103/ul Normal 1.4-6.5 [facility] Comment on above: Performed By: #### C BC #### [facility] [address] [place] [address] Dr. Ashlie Hills Neutrophils/100 WBC (Bld) 56.8 % Normal 43.0-75.0 [facility] Comment on above: Performed By: #### C BC #### [facility] [address] [place] [address] Dr. Ashlie Hills Platelet mean volume (Bld) [Entitic vol] 12.5 fL Normal 9.5-13.5 [facility] Comment on above: Performed By: #### C BC #### [facility] [address] [place] [address] Dr. Ashlie Hills PLT 109 103/ul Critically low 150-450 [facility] Comment on above: Performed By: #### C BC #### [facility] [address] [place] [address] Dr. Ashlie Hills RBC 5.47 106/ul Critically high 4.20-5.40 [facility] Comment on above: Performed By: #### C BC #### [facility] [address] [place] [address] Dr. Ashlie Hills WBC 9.4 103/ul Normal 4.0-11.0 [facility] Comment on above: Performed By: #### C BC #### [facility] [address] [place] [address] Dr. Ashlie Hills PROF 14(COMP METB)on 023 Albumin [Mass/Vol] 2.9 g/dL Critically low 3.4-5.[address] [facility] Comment on above: Performed By: #### C BC #### [facility] [address] [place] [address] Dr. Ashlie Hills Albumin/Globulin [Mass ratio] 0.6 {ratio} Normal [facility] Comment on above: Performed By: #### C BC #### [facility] [address] [place] [address] Dr. Ashlie Hills ALP [Catalytic activity/Vol] 64 U/L Normal 46-116 [facility] Comment on above: Performed By: #### C BC #### [facility] [address] [place] [address] Dr. Ashlie Hills ALT [Catalytic activity/Vol] 16 U/L Normal 14-59 [facility] Comment on above: Performed By: #### C BC #### [facility] [address] [place] [address] Dr. Ashlie Hills Anion gap [Moles/Vol] 9.6 mmol/L Normal [facility] Comment on above: Performed By: #### C BC #### [facility] [address] [place] [address] Dr. Ashlie Hills AST [Catalytic activity/Vol] 16 U/L Normal 15-37 [facility] Comment on above: Performed By: #### C BC #### [facility] [address] [address] [address] Ashlie Hills Bilirubin [Mass/Vol] 0.5 mg/dL Normal 0.2-1.0 [facility] Comment on above: Performed By: #### C BC #### [facility] [address] [address] [address] Ashlie Hills Calcium [Mass/Vol] 8.7 mg/dL Normal 8.5-10.1 [facility] Comment on above: Performed By: #### C BC #### [facility] [address] [address] [address] Ashlie Hills Chloride [Moles/Vol] 103 mmol/L Normal 98-107 [facility] Comment on above: Performed By: #### C BC #### [facility] [address] [place] [address] Dr. Ashlie Hills CO2 [Moles/Vol] 30.7 mmol/L Normal 21.0-32.0 [facility] Comment on above: Performed By: #### C BC #### [facility] [address] [place] [address] Dr. Ashlie Hills Creatinine [Mass/Vol] 0.96 mg/dL Normal 0.55-1.02 [facility] Comment on above: Performed By: #### C BC #### [facility] Laboratory [address] [place] [address] Dr. Ashlie Hills EGFR-AF KITTITIAN >60 Normal >=60 [facility] Comment on above: Performed By: #### C BC #### [facility] [address] [place] [address] Dr. Ashlie Hills EGFR-NON AF KITTITIAN >60 Normal >=60 [facility] Comment on above: Performed By: #### C BC #### [facility] [address] [place] [address] Dr. Ashlie Hills Globulin (S) [Mass/Vol] 4.7 g/dL Normal [facility] Comment on above: Performed By: #### C BC #### [facility] [address] [place] [address] [address] [address] Ashlie Hills Glucose [Mass/Vol] 170 mg/dL Critically high 74-[address] [facility] Comment on above: Performed By: #### C BC #### [facility] [address] [place] [address] [address] [address] Ashlie Hills Potassium [Moles/Vol] 4.3 mmol/L Normal 3.5-5.1 [facility] Comment on above: Performed By: #### C BC #### [facility] [address] [place] [address] [address] Ashlie Hills Protein [Mass/Vol] 7.6 g/dL Normal 6.4-8.2 [facility] Comment on above: Performed By: #### C BC #### [facility] [address] [place] [address] Dr. Ashlie Hills Sodium [Moles/Vol] 139 mmol/L Normal 136-145 [facility] Comment on above: Performed By: #### C BC #### [facility] [address] [place] [address] [address] Ashlie Hills Urea nitrogen [Mass/Vol] 16.0 mg/dL Normal 7.0-18.0 [facility] Comment on above: Performed By: #### C BC #### [facility] [address] [place] [address] Dr. Ashlie Hills Urea nitrogen/Creatinine [Mass ratio] 16.7 mg/mg Normal [facility] Comment on above: Performed By: #### C BC #### [facility] [address] [place] [address] Dr. Ashlie Hills SYMPTOMATIC COVID-19 ANTIGEN on 12-04-2022 EUA Statement SEE BELOW Normal [facility] Comment on above: Result [...] sooner. Performed By: #### C VDAGS #### [facility] [address] [place] [address] Dr. Ashlie Hills SARS-CoV-2 (COVID-19) RNA MADDY+probe Ql (Unsp spec) Negative Normal NEGATIVE [facility] Comment on above: Performed By: #### C VDAGS #### [facility] [address] [place] [address] Dr. Ashlie Hills TROPONIN, HIGH SENSITIVITYon 12-04-2022 HSTROP 8.9 pg/mL Normal 4.0-51.3 [facility] Comment on above: Result Comment: CUT- OFF POINTS HAVE BEEN ESTABLISHED BASED ON THE FOURTH UNIVERSAL DEFINITIONS OF MYOCARDIAL INFARCTION. THE UPPER REFERENCE LIMIT (URL) OF TROPONIN, DEFINED THE 99TH PERCENTILE OF cTnI DISTRIBUTION IN A REFERENCE POPULATION, HAS BEEN CONFIRMED THE DECISION THRESHOLD FOR CA DIAGNOSIS. Performed By: #### P OCGLUC #### [facility] [address] [place] [address] Dr. Ashlie Hills MICROALBUMIN, RAND URon 05- mALB 35.8 mg/dL Critically high <=30.0 [facility] Comment on above: Performed By: #### C VDAGS #### [facility] [address] [place] [address] Dr. Ashlie Hills UA RANDOM W/MICROSCOPICon BACTERIA NONE SEEN Normal NONE SEEN [facility] Comment on above: Performed By: #### C VDAGS #### [facility] [address] [place] [address] Dr. Ashlie Hills Bilirubin Ql (U) Negative Normal NEGATIVE [facility] Comment on above: Performed By: #### C VDAGS #### [facility] [address] [place] [address] Dr. Ashlie Hills CAST SEEN Abnormal NONE SEEN [facility] Comment on above: Performed By: #### C VDAGS #### [facility] [address] [place] [address] Dr. Ashlie Hills Clarity (U) CLEAR Normal CLEAR [facility] Comment on above: Performed By: #### C VDAGS #### [facility] [address] [place] [address] Dr. Ashlie Hills Color (U) YELLOW Normal YELLOW [facility] Comment on above: Performed By: #### C VDAGS #### [facility] [address] [place] [address] Dr. Ashlie Hills Crystals LM Nom (Urine sed) NONE SEEN Normal NONE SEEN [facility] Comment on above: Performed By: #### C VDAGS #### [facility] [address] [place] [address] Dr. Ashlie Hills Epithelial cells LM Ql (Urine sed) MODERATE Abnormal NONE SEEN /RARE [facility] Comment on above: Performed By: #### C VDAGS #### [facility] [address] [place] [address] Dr. Ashlie Hills Glucose Ql (U) Negative Normal NEGATIVE [facility] Comment on above: Performed By: #### C VDAGS #### [facility] [address] [place] [address] Dr. Ashlie Hills Hemoglobin Ql (U) TRACE-INTACT Abnormal NEGATIVE [facility] Comment on above: Performed By: #### C VDAGS #### [facility] [address] [place] [address] Dr. Ashlie Hills Ketones Ql (U) Negative Normal NEGATIVE [facility] Comment on above: Performed By: #### C VDAGS #### [facility] [address] [place] [address] Dr. Ashlie Hills LEUKOCYTES Negative Normal NEGATIVE [facility] Comment on above: Performed By: #### C VDAGS #### [facility] [address] [place] [address] Dr. Ashlie Hills MUCOUS NONE SEEN Normal NONE SEEN [facility] Comment on above: Performed By: #### C VDAGS #### [facility] [address] [place] [address] [address] [address] Ashlie Hills Nitrite Ql (U) Negative Normal NEGATIVE [facility] Comment on above: Performed By: #### C VDAGS #### [facility] [address] [place] [address] Dr. Ashlie Hills pH (U) 5.0 [pH] Normal 5-9 [facility] Comment on above: Performed By: #### C VDAGS #### [facility] [address] [place] [address] Dr. Ashlie Hills RBC 0-2 Normal 0-2 [facility] Comment on above: Performed By: #### C VDAGS #### [facility] [address] [place] [address] Dr. Ashlie Hills SPEC GRAVITY 1.030 Abnormal 1.005-<=1.025 [facility] Comment on above: Performed By: #### C VDAGS #### [facility] [address] [place] [address] Dr. Ashlie Hills UA PROTEIN 100 mg/dl Abnormal NEGATIVE/ TRACE [facility] Comment on above: Performed By: #### C VDAGS #### [facility] [address] [place] [address] Dr. Ashlie Hills Urobilinogen Qn (U) 0.2 {Little'U}/dL Normal 0.2 - 1. 0 [facility] Comment on above: Performed By: #### C VDAGS #### [facility] [address] [place] [address] Dr. Ashlie Hills WBC NONE SEEN Normal NONE SEEN [facility] Comment on above: Performed By: #### C VDAGS #### [facility] [address] [place] [address] Dr. Ashlie Hills CBC AUTO DIFFon 11-22-2022 BASO # 0.0 103/ul Normal 0.0-0.1 [facility] Comment on above: Performed By: #### C BC #### [facility] [address] [place] [address] [address] [address] Ashlie Hills Basophils/100 WBC (Bld) 0.3 % Normal 0.2-2.0 [facility] Comment on above: Performed By: #### C BC #### [facility] [address] [place] [address] [address] [address] Ashlie Hills EO # 0.4 103/ul Normal 0.0-0.7 [facility] Comment on above: Performed By: #### C BC #### [facility] [address] [place] [address] [address] [address] Ashlie Hills Eosinophils/100 WBC (Bld) 3.0 % Normal 0.9-7.0 [facility] Comment on above: Performed By: #### C BC #### [facility] [address] [place] [address] Dr. Ashlie Hills Erythrocyte distribution width (RBC) [Ratio] 15.3 % Critically high 11.0-15.0 [facility] Comment on above: Performed By: #### C BC #### [facility] [address] [place] [address] [address] [address] Ashlie Hills Hematocrit (Bld) [Volume fraction] 52.4 % Critically high 36.0-48.0 [facility] Comment on above: Performed By: #### C BC #### [facility] [address] [place] [address] Dr. Ashlie Hills Hemoglobin (Bld) [Mass/Vol] 16.8 g/dL Critically high 12.0-16.0 [facility] Comment on above: Performed By: #### C BC #### [facility] [address] [place] [address] Dr. Ashlie Hills IG # 0.04 10e3/ul Critically high 0.00-0.03 [facility] Comment on above: Performed By: #### C BC #### [facility] [address] [place] [address] [address] [address] Ashlie Hills IG % 0.3 % Normal 0.0-0.5 [facility] Comment on above: Performed By: #### C BC #### [facility] [address] [place] [address] [address] [address] Ashlie Hills LYMPH # 4.5 103/ul Critically high 1.2-3.8 [facility] Comment on above: Performed By: #### C BC #### [facility] [address] [place] [address] [address] [address] Ashlie Hills Lymphocytes/100 WBC (Bld) 33.2 % Normal 20.5-60.0 [facility] Comment on above: Performed By: #### C BC #### [facility] [address] [place] [address] Dr. Ashlie Hills MANUAL DIFF REQ NO Normal [facility] Comment on above: Performed By: #### C BC #### [facility] [address] [place] [address] Dr. Ashlie Hills MCH (RBC) [Entitic mass] 28.0 pg Normal 26.7-34.0 [facility] Comment on above: Performed By: #### C BC #### [facility] [address] [place] [address] Dr. Ashlie Hills MCHC (RBC) [Mass/Vol] 32.1 g/dL Normal 29.9-35.2 [facility] Comment on above: Performed By: #### C BC #### [facility] [address] [place] [address] Dr. Ashlie Hills MCV (RBC) [Entitic vol] 87.3 fL Normal 81.0-99.0 [facility] Comment on above: Performed By: #### C BC #### [facility] [address] [place] [address] Dr. Ashlie Hills MONO # 0.8 103/ul Normal 0.3-0.8 [facility] Comment on above: Performed By: #### C BC #### [facility] [address] [place] [address] Dr. Ashlie Hills Monocytes/100 WBC (Bld) 5.7 % Normal 1.7-12.0 [facility] Comment on above: Performed By: #### C BC #### [facility] [address] [place] [address] [address] [address] Ashlie Hills NEUT # 7.8 103/ul Critically high 1.4-6.5 [facility] Comment on above: Performed By: #### C BC #### [facility] [address] [place] [address] [address] [address] Ashlie Hills Neutrophils/100 WBC (Bld) 57.5 % Normal 43.0-75.0 [facility] Comment on above: Performed By: #### C BC #### [facility] [address] [address] [address] Ashlie Hills Platelet mean volume (Bld) [Entitic vol] 12.0 fL Normal 9.5-13.5 [facility] Comment on above: Performed By: #### C BC #### [facility] [address] [place] [address] Dr. Ashlie Hills PLT 152 103/ul Normal 150-450 [facility] Comment on above: Performed By: #### C BC #### [facility] [address] [place] [address] Dr. Ashlie Hills RBC 6.00 106/ul Critically high 4.20-5.40 [facility] Comment on above: Performed By: #### C BC #### [facility] [address] [place] [address] Dr. Ashlie Hills WBC 13.6 103/ul Critically high 4.0-11.0 [facility] Comment on above: Performed By: #### C BC #### [facility] [address] [place] [address] Dr. Ashlie Hills LIPID PROFILEon 11-22-2022 CHOL-HDL RATIO NORM SEE BELOW Normal [facility] Comment on above: Result Comment: 3.3 - 4.4 LOW RISK 4.4 - 7.1 AVERAGE RISK 7.1 - 11.0 MODERATE RISK >11.0 HIGH RISK Performed By: #### C BC #### [facility] [address] [place] [address] Dr. Ashlie Hills Cholesterol [Mass/Vol] 139 mg/dL Normal <=200 [facility] [place] Comment on above: Performed By: #### C BC #### [facility] [address] [place] [address] [address] [address] Ashlie Hills Cholesterol in HDL [Mass/Vol] 35 mg/dL Critically low 40-60 [facility] Comment on above: Performed By: #### C BC #### [facility] [address] [place], [place] [address] Dr. Ashlie Hills Cholesterol in LDL [Mass/Vol] 67.4 mg/dL Normal [facility] Comment on above: Performed By: #### C BC #### [facility] [address] [place] [address] [address] [address] Ashlie Hills Cholesterol.total/Chol esterol in HDL [Mass ratio] 4.0 {ratio} Normal [facility] Comment on above: Performed By: #### C BC #### [facility] [address] [place] [address] [address] [address] Ashlie Hills HDL NORMAL > or = 60 mg/dl - LOW CARDIOVASCULAR RISK <40 mg/dl - HIGH CARDIOVASCULAR RISK Normal [facility] Comment on above: Performed By: #### C BC #### [facility] [address] [place] [address] [address] [address] Ashlie Hills LDL CALC NORMAL SEE BELOW Normal [facility] Comment on above: Result Comment: <100 mg/dl OPTIMAL 100 - 129 mg/dl NEAR OR ABOVE OPTIMAL 130 - 159 mg/dl BORDERLINE HIGH 160 - 189 mg/dl HIGH >190 mg/dl VERY HIGH Performed By: #### C BC #### [facility] [address] [place] [address] [address] [address] Ashlie Hills Triglyceride [Mass/Vol] 183 mg/dL Critically high <=150 [facility] Comment on above: Performed By: #### C BC #### [facility] [address] [address] [address] Ashlie Hills VLDL CALC 36.6 mg/dL Normal [facility] Comment on above: Performed By: #### C BC #### [facility] [address] [place] [address] Dr. Ashlie Hills MG MAMM SCREEN 3D ALEX CADon 11-22-2022 MG MAMM SCREEN 3D ALEX CAD Patient: MITZI MACIAS Exam Date: 11/22/2022 : 1970 Gender:F Ordering : SAYDA MCKAYLA [employer] Admission #: [id number] Family : Order #: [id number] CLICK HERE TO VIEW EXAM RADIOLOGY REPORT [...] unknown cancer at age 75. LOCATION: [facility] BREAST COMPOSITION: Almost entirely fatty. FINDINGS: [...] 3.0 g/dL Critically low 3.4-5.0 [facility] Comment on above: Performed By: #### C BC #### [facility] [address] [place], [place] [address] Dr[address] Ashlie Hills Albumin/Globulin [Mass ratio] 0.6 {ratio} Normal [facility] Comment on above: Performed By: #### C BC #### [facility] [address] [place], [place] [address] Dr[address] Ashlie Hills ALP [Catalytic activity/Vol] 68 U/L Normal 46-116 [facility] Comment on above: Performed By: #### C BC #### [facility] [address] [place] [address] [address] [address] Ashlie Hills ALT [Catalytic activity/Vol] 14 U/L Normal 14-59 [facility] Comment on above: Performed By: #### C BC #### [facility] [address] [address] [address] Ashlie Hills Anion gap [Moles/Vol] 12.1 mmol/L Normal [facility] [place] Comment on above: Performed By: #### C BC #### [facility] [address] [address] [address] Ashlie Hills AST [Catalytic activity/Vol] 9 U/L Critically low 15-37 [facility] Comment on above: Performed By: #### C BC #### [facility] [address] [address] [address] Ashlie Hills Bilirubin [Mass/Vol] 0.4 mg/dL Normal 0.2-1.0 [facility] Comment on above: Performed By: #### C BC #### [facility] [address] [address] [address] Ashlie Hills Calcium [Mass/Vol] 9.0 mg/dL Normal 8.5-10.1 [facility] Comment on above: Performed By: #### C BC #### [facility] [address] [address] [address] Ashlie Hills Chloride [Moles/Vol] 105 mmol/L Normal 98-107 [facility] Comment on above: Performed By: #### C BC #### [facility] [address] [address] [address] Ashlie Hills CO2 [Moles/Vol] 30.7 mmol/L Normal 21.0-32.0 [facility] Comment on above: Performed By: #### C BC #### [facility] [address] [address] [address] Ashlie Hills Creatinine [Mass/Vol] 0.77 mg/dL Normal 0.55-1.02 [facility] Comment on above: Performed By: #### C BC #### [facility] [address] [address] [address] Ashlie Hills EGFR-AF KITTITIAN >60 Normal >=60 [facility] Comment on above: Performed By: #### C BC #### [facility] [address] [address] [address] Ashlie Hills EGFR-NON AF KITTITIAN >60 Normal >=60 [facility] Comment on above: Performed By: #### C BC #### [facility] [address] [address] [address] Ashlie Hills Globulin (S) [Mass/Vol] 4.8 g/dL Normal [facility] Comment on above: Performed By: #### C BC #### [facility] [address] [address] [address] Ashlie Hills Glucose [Mass/Vol] 162 mg/dL Critically high 74-106 [facility] Comment on above: Performed By: #### C BC #### [facility] [address] [address] [address] Ashlie Hills Potassium [Moles/Vol] 3.8 mmol/L Normal 3.5-5.1 [facility] Comment on above: Performed By: #### C BC #### [facility] [address] [address] [address] Ashlie Hills Protein [Mass/Vol] 7.8 g/dL Normal 6.4-8.2 [facility] Comment on above: Performed By: #### C BC #### [facility] [address] [address] [address] Ashlie Hills Sodium [Moles/Vol] 144 mmol/L Normal 136-145 [facility] Comment on above: Performed By: #### C BC #### [facility] [address] [address] [address] Ashlie Hills Urea nitrogen [Mass/Vol] 24.0 mg/dL Critically high 7.0-18.0 [facility] Comment on above: Performed By: #### C BC #### [facility] [address] [place] [address] Dr. Ashlie Hills Urea nitrogen/Creatinine [Mass ratio] 31.2 mg/mg Normal [facility] Comment on above: Performed By: #### C BC #### [facility] [address] [place] [address] Dr. Ashlie Hills CBC AUTO DIFFon 10-05-2022 BASO # 0.1 103/ul Normal 0.0-0.1 [facility] Comment on above: Performed By: #### C BC #### [facility] [address] [place] [address] Dr. Ashlei Hills Basophils/100 WBC (Bld) 0.6 % Normal 0.2-2.0 [facility] Comment on above: Performed By: #### C BC #### [facility] [address] [place] [address] Dr. Ashlie Hills EO # 0.3 103/ul Normal 0.0-0.7 [facility] Comment on above: Performed By: #### C BC #### [facility] [address] [place] [address] Dr. Ashlie Hills Eosinophils/100 WBC (Bld) 2.1 % Normal 0.9-7.0 [facility] Comment on above: Performed By: #### C BC #### [facility] [address] [place] [address] Dr. Ashlie Hills Erythrocyte distribution width (RBC) [Ratio] 15.9 % Critically high 11.0-15.0 [facility] Comment on above: Performed By: #### C BC #### [facility] [address] [place] [address] Dr. Ashlie Hills Hematocrit (Bld) [Volume fraction] 51.8 % Critically high 36.0-48.0 [facility] Comment on above: Performed By: #### C BC #### [facility] [address] [place] [address] Dr. Ashlie Hills Hemoglobin (Bld) [Mass/Vol] 16.6 g/dL Critically high 12.0-16.0 [facility] Comment on above: Performed By: #### C BC #### [facility] [address] [address] [address] Ashlie Hills IG # 0.03 10e3/ul Normal 0.00-0.03 [facility] Comment on above: Performed By: #### C BC #### [facility] [address] [address] [address] Ashlie Hills IG % 0.2 % Normal 0.0-0.5 [facility] Comment on above: Performed By: #### C BC #### [facility] [address] [place] [address] Dr. Ashlie Hills LYMPH # 3.9 103/ul Critically high 1.2-3.8 [facility] Comment on above: Performed By: #### C BC #### [facility] [address] [place] [address] Dr. Ashlie Hills Lymphocytes/100 WBC (Bld) 31.7 % Normal 20.5-60.0 [facility] Comment on above: Performed By: #### C BC #### [facility] [address] [place] [address] Dr. Ashlie Hills MANUAL DIFF REQ NO Normal [facility] Comment on above: Performed By: #### C BC #### [facility] [address] [place] [address] Dr. Ashlie Hills MCH (RBC) [Entitic mass] 27.9 pg Normal 26.7-34.0 [facility] Comment on above: Performed By: #### C BC #### [facility] [address] [place] [address] Dr. Ashlie Hills MCHC (RBC) [Mass/Vol] 32.0 g/dL Normal 29.9-35.2 [facility] Comment on above: Performed By: #### C BC #### [facility] [address] [place] [address] Dr. Ashlie Hills MCV (RBC) [Entitic vol] 87.1 fL Normal 81.0-99.0 [facility] Comment on above: Performed By: #### C BC #### [facility] [address] [address] [address] Ashlie Hills MONO # 0.7 103/ul Normal 0.3-0.8 [facility] Comment on above: Performed By: #### C BC #### [facility] [address] [place] [address] Dr. Ashlie Hills Monocytes/100 WBC (Bld) 5.8 % Normal 1.7-12.0 [facility] Comment on above: Performed By: #### C BC #### [facility] [address] [place] [address] Dr. Ashlie Hills NEUT # 7.3 103/ul Critically high 1.4-6.5 [facility] [place] [facility] Comment on above: Performed By: #### C BC #### [facility] [address] [place] [address] Dr. Ashlie Hills Neutrophils/100 WBC (Bld) 59.6 % Normal 43.0-75.0 [facility] Comment on above: Performed By: #### C BC #### [facility] [address] [place] [address] Dr. Ashlie Hills Platelet mean volume (Bld) [Entitic vol] 11.7 fL Normal 9.5-13.5 [facility] Comment on above: Performed By: #### C BC #### [facility] [address] [place] [address] Dr. Ashlie Hills PLT 117 103/ul Critically low 150-450 [facility] Comment on above: Performed By: #### C BC #### [facility] [address] [place] [address] Dr. Ashlie Hills RBC 5.95 106/ul Critically high 4.20-5.40 [facility] Comment on above: Performed By: #### C BC #### [facility] [address] [place] [address] Dr. Ashlie Hills WBC 12.3 103/ul Critically high 4.0-11.0 [facility] Comment on above: Performed By: #### C BC #### [facility] [address] [place] [address] ABD/PELV W CONon [...] RICCO PICKARD Date: 2022-10-05 13:13 Normal [facility] ER URINE PROFILEon 3 Bilirubin Ql (U) Negative Normal NEGATIVE [facility] Comment on above: Performed By: #### P OCGLUC #### [facility] [address] [place] [address] Dr. Ashlie Hills Clarity (U) CLEAR Normal CLEAR [facility] Comment on above: Performed By: #### P OCGLUC #### [facility] [address] [place] [address] Dr. Ashlie Hills Color (U) YELLOW Normal YELLOW [facility] Comment on above: Performed By: #### P OCGLUC #### [facility] [address] [place] [address] Dr. Ashlie Hills ERUAHD A micrscopic examination will be performed if indicated. Normal [facility] Comment on above: Performed By: #### P OCGLUC #### [facility] [address] [address] [address] Ashlie Hills Glucose Ql (U) Negative Normal NEGATIVE [facility] Comment on above: Performed By: #### P OCGLUC #### [facility] [address] [address] [address] Ashlie Hills Hemoglobin Ql (U) Negative Normal NEGATIVE [facility] Comment on above: Performed By: #### P OCGLUC #### [facility] [address] [place] [address] Dr. Ashlie Hills Ketones Ql (U) Negative Normal NEGATIVE [facility] Comment on above: Performed By: #### P OCGLUC #### [facility] [address] [place] [address] [address] [address] Ashlie Hills LEUKOCYTES Negative Normal NEGATIVE [facility] Comment on above: Performed By: #### P OCGLUC #### [facility] [address] [place] [address] Dr. Ashlie Hills Nitrite Ql (U) Negative Normal NEGATIVE [facility] Comment on above: Performed By: #### P OCGLUC #### [facility] [address] [place] [address] Dr. Ashlie Hills pH (U) 6.0 [pH] Normal 5-9 [facility] Comment on above: Performed By: #### P OCGLUC #### [facility] [address] [place] [address] Dr. Ashlie Hills Protein (U) [Mass/Vol] 100 mg/dL Abnormal NEGAT YURY/ TRACE [facility] Comment on above: Performed By: #### P OCGLUC #### [facility] [address] [place] [address] Dr. Ashlie Hills SPEC GRAVITY 1.010 Normal 1.005-<=1.025 [facility] Comment on above: Performed By: #### P OCGLUC #### [facility] [address] [place] [address] Dr. Ashlie Hills UR MICRO IND INDICATED Normal [facility] Comment on above: Performed By: #### P OCGLUC #### [facility] [address] [place] [address] Dr. Ashlie Hills Urobilinogen Qn (U) 1.0 {Little'U}/dL Normal 0.2 - 1. 0 [facility] Comment on above: Performed By: #### P OCGLUC #### [facility] [address] [place] [address] Dr. Ashlie Hills LIPASEon 10-05-2022 Lipase [Catalytic activity/Vol] 1771.0 U/L Critically high 73.0-393.0 [facility] Comment on above: Performed By: #### C BC #### [facility] [address] [place] [address] Dr. Ashlie Hills PREG HCG QUALon 10-05-2022 , QUAL Negative Normal NEGATIVE [facility] Comment on above: Performed By: #### P OCGLUC #### [facility] [address] [place] [address] Dr. Ashlie Hills PROF 14(COMP METB)on 023 Albumin [Mass/Vol] 3.2 g/dL Critically low 3.4-5.[address] [facility] Comment on above: Performed By: #### C BC #### [facility] [address] [place] [address] Dr. Ashlie Hills Albumin/Globulin [Mass ratio] 0.7 {ratio} Normal [facility] Comment on above: Performed By: #### C BC #### [facility] [address] [place] [address] Dr. Ashlie Hills ALP [Catalytic activity/Vol] 70 U/L Normal 46-116 [facility] Comment on above: Performed By: #### C BC #### [facility] [address] [place] [address] Dr. Ashlie Hills ALT [Catalytic activity/Vol] 11 U/L Critically low 14-59 [facility] Comment on above: Performed By: #### C BC #### [facility] [address] [place] [address] Dr. Ashlie Hills Anion gap [Moles/Vol] 10.3 mmol/L Normal [facility] Comment on above: Performed By: #### C BC #### [facility] [address] [place] [address] [address] Ashlie Hills AST [Catalytic activity/Vol] 11 U/L Critically low 15-37 [facility] Comment on above: Performed By: #### C BC #### [facility] [address] [place] [address] [address] Ashlie Hills Bilirubin [Mass/Vol] 0.9 mg/dL Normal 0.2-1.0 [facility] Comment on above: Performed By: #### C BC #### [facility] [address] [place] [address] [address] Ashlie Hills Calcium [Mass/Vol] 9.3 mg/dL Normal 8.5-10.1 [facility] Comment on above: Performed By: #### C BC #### [facility] [address] [place] [address] Dr. Ashlie Hills Chloride [Moles/Vol] 105 mmol/L Normal 98-107 [facility] Comment on above: Performed By: #### C BC #### [facility] [address] [place] [address] [address] Ashlie Hills CO2 [Moles/Vol] 30.6 mmol/L Normal 21.0-32.0 [facility] Comment on above: Performed By: #### C BC #### [facility] [address] [place] [address] Dr. Ashlie Hills Creatinine [Mass/Vol] 0.62 mg/dL Normal 0.55-1.02 [facility] Comment on above: Performed By: #### C BC #### [facility] [address] [place] [address] [address] Ashlie Hills EGFR-AF KITTITIAN >60 Normal >=60 [facility] Comment on above: Performed By: #### C BC #### [facility] [address] [place] [address] [address] Ashlie Hills EGFR-NON AF KITTITIAN >60 Normal >=60 [facility] Comment on above: Performed By: #### C BC #### [facility] [address] [place] [address] [address] Ashlie Hills Globulin (S) [Mass/Vol] 4.6 g/dL Normal [facility] Comment on above: Performed By: #### C BC #### [facility] [address] [place] [address] Dr. Ashlie Hills Glucose [Mass/Vol] 85 mg/dL Normal 74-106 [facility] Comment on above: Performed By: #### C BC #### [facility] [address] [place] [address] Dr. Ashlie Hills Potassium [Moles/Vol] 3.9 mmol/L Normal 3.5-5.1 [facility] Comment on above: Performed By: #### C BC #### [facility] [address] [place] [address] Dr. Ashlie Hills Protein [Mass/Vol] 7.8 g/dL Normal 6.4-8.2 [facility] Comment on above: Performed By: #### C BC #### [facility] [address] [place] [address] Dr. Ashlie Hills Sodium [Moles/Vol] 142 mmol/L Normal 136-145 [facility] Comment on above: Performed By: #### C BC #### [facility] [address] [place] [address] Dr. Ashlie Hills Urea nitrogen [Mass/Vol] 12.0 mg/dL Normal 7.0-18.0 [facility] Comment on above: Performed By: #### C BC #### [facility] [address] [place] [address] Dr. Ashlie Hills Urea nitrogen/Creatinine [Mass ratio] 19.4 mg/mg Normal [facility] Comment on above: Performed By: #### C BC #### [facility] [address] [place] [address] Dr. Ashlie Hills URINE MICROSCOPIC ONLYon BACTERIA TRACE Abnormal NONE SEEN [facility] Comment on above: Performed By: #### P OCGLUC #### [facility] [address] [place] [address] Dr. Ashlie Hills Bacteria identified Cx Nom (U) NOT INDICATED Normal [facility] Comment on above: Performed By: #### P OCGLUC #### [facility] [address] [place] [address] Dr. Ashlie Hills CAST NONE SEEN Normal NONE SEEN [facility] Comment on above: Performed By: #### P OCGLUC #### [facility] [address] [place] [address] Dr. Ashlie Hills Crystals LM Nom (Urine sed) NONE SEEN Normal NONE SEEN [facility] Comment on above: Performed By: #### P OCGLUC #### [facility] [address] [place] [address] Dr. Ashlie Hills Epithelial cells LM Ql (Urine sed) MODERATE Abnormal NONE SEEN /RARE [facility] Comment on above: Performed By: #### P OCGLUC #### [facility] [address] [place] [address] Dr. Ashlie Hills MUCOUS NONE SEEN Normal NONE SEEN [facility] Comment on above: Performed By: #### P OCGLUC #### [facility] [address] [place] [address] Dr. Ashlie Hills RBC 0-2 Normal 0-2 [facility] Comment on above: Performed By: #### P OCGLUC #### [facility] [address] [place] [address] Dr. Ashlie Hills WBC 0-2 Abnormal NONE SEEN [facility] Comment on above: Performed By: #### P OCGLUC #### [facility] [address] [place] [address] Dr. Ashlie Hills Covid-19 PCR (CVDTB)on 09-06 SARS-CoV-2 (COVID-19) RNA MADDY+probe Ql (Unsp spec) Detected Abnormal NOT DETECTED [facility] Comment on above: Result Comment: This test is not yet approved or cleared by the [place] FDA. When there are no FDA-approved or cleared tests available, and other criteria are met, FDA can make tests available under an emergency access mechanism called an Emergency Use Authorization (EUA). The EUA for this test is supported by the [employer] Administrator of Health and Human Service's declaration that [...] used). Performed By: #### C VDAGS #### [facility] [address] [place] [address] Dr. Ashlie Hills INFLUENZA A AND B AGon 09-21 [facility] SEE BELOW Normal [facility] Comment on above: Result Comment: Nega tive for Flu A protein angiten. Infection due to Flu A cannot be ruled out. Flu A angiten in the sample may be below the detection limit of the test. Performed By: #### I NFLUAB #### [facility] [address] [place] [address] Dr. Ashlie Hills [facility] Normal [facility] Comment on above: Result Comment: Nega tive for Flu B protein antigen. Infection due to Flu B cannot be ruled out. Flu B antigen in the sample may be below the detection limit of the test. Performed By: #### I NFLUAB #### [facility] [address] [place] [address] Dr. Ashlie Hills INFLUENZA A AG Negative Normal NEGATIVE SEE COMMENT [facility] Comment on above: Performed By: #### I NFLUAB #### [facility] [address] [place] [address] Dr. Ashlie Hills INFLUENZA B AG Negative Normal NEGATIVE SEE COMMENT [facility] Comment on above: Performed By: #### I NFLUAB #### [facility] [address] [place] [address] ABD/PELV W CONon [...] to at least 10/21/2018, unchanged. https://www.ncbi.nlm .nih.gov/pmc/article s/[email or web address]/ Electronically authenticated by: COLLIN HUERTAS Date: 2022-07-27 14:56 Normal [facility] CREATININEon 07-18-2022 Creatinine [Mass/Vol] 0.81 mg/dL Normal 0.55-1.02 [facility] Comment on above: Performed By: #### C BC #### [facility] [address] [place] [address] Dr. Ashlie Hills EGFR-AF KITTITIAN >60 Normal >=60 [facility] Comment on above: Performed By: #### C BC #### [facility] [address] [place] [address] Dr. Ashlie Hills EGFR-NON AF KITTITIAN >60 Normal >=60 [facility] Comment on above: Performed By: #### C BC #### [facility] [address] [place] [address] LOW EXT W [...] PATRICIA VELOZ Date: 2022-07-18 14:58 Normal [facility] XR KNEE LT 1_2 Von 3 [...] HATTIE BAUTISTA Date: 2022-07-18 12:00 Normal [facility]on [facility]-09 SARS-CoV-2 (COVID-19) RNA MADDY+probe Ql (Unsp spec) Not detected Normal NOT DETECTED [facility] [...] for this test is supported by the [place] of Health and Human Service's (HHS's) declaration [...] SARS-CoV-2. Performed By: #### C BC #### [facility] [address] [place] [address] Dr. Ashlie Hills INFLUENZA A AND B AGon 07-06 [facility] SEE BELOW Normal [facility] Comment on above: Result Comment: Nega tive for Flu A protein angiten. Infection due to Flu A cannot be ruled out. Flu A angiten in the sample may be below the detection limit of the test. Performed By: #### C BC #### [facility] [address] [place] [address] Dr. Ashlie Hills INFLUBNEGH SEE BELOW Normal [facility] Comment on above: Result Comment: Nega tive for Flu B protein antigen. Infection due to Flu B cannot be ruled out. Flu B antigen in the sample may be below the detection limit of the test. Performed By: #### C BC #### [facility] [address] [place] [address] Dr. Ashlie Hills INFLUENZA A AG Negative Normal NEGATIVE SEE COMMENT [facility] Comment on above: Performed By: #### C BC #### [facility] [address] [place] [address] Dr. Ashlie Hills INFLUENZA B AG Negative Normal NEGATIVE SEE COMMENT [facility] Comment on above: Performed By: #### C BC #### [facility] [address] [place] [address] Dr. Ashlie Hills POINT OF CARE GLUCOSEon 10- Glucose [Mass/Vol] 108 mg/dL Critically high 74-[address] [facility] Comment on above: Performed By: #### C BC #### [facility] [address] [place] [address] Dr. Ashlie Hills RAGHU by IFAon 03-07-2022 Antinuclear Antibodies, IFA Negative Normal [facility] Comment on above: Result Comment: Nega tive <1:80 Borderline 1:80 Positive >1:80 ICAP nomenclature: AC-0 For more information about Hep-2 cell patterns use ANApatterns.org, the official website for the International Consensus on Antinuclear Antibody (RAGHU) Patterns (ICAP). Performed By: #### A NAIFA #### [facility] [address] [place] [address] Dr. Ashlie Hills IMMUNOFIXATION (TREVON), URINEo n 03-07-2022 TREVON Interpretation:U Comment Normal [facility] Comment on above: Result Comment: No m onoclonality detected. Performed By: #### C BC #### [facility] [address] [place] [address] Dr. Ashlie Hills IMMUNOFIXATION(TREVON),PROTEIN ELEC(PE),FREon 03-07-2022 Albumin [Mass/Vol] 3.0 g/dL Normal 2.9-4.4 [facility] Comment on above: Performed By: #### I NFLUAB #### [facility] [address] [place] [address] Dr. Ashlie Hills Albumin/Globulin [Mass ratio] 0.8 {ratio} Normal 0.7-1.7 [facility] Comment on above: Performed By: #### I NFLUAB #### [facility] [address] [place] [address] Dr. Ashlie Hills Ceddu-1-Amcxcovw 0.3 g/dL Normal 0.0-0.4 [facility] Comment on above: Performed By: #### I NFLUAB #### [facility] [address] [place] [address] Dr. Ashlie Hills Myujq-1-Pringzvg 1.0 g/dL Normal 0.4-1.0 [facility] Comment on above: Performed By: #### I NFLUAB #### [facility] [address] [place] [address] Dr. Ashlie Hills Beta Globulin 1.8 g/dL Critically high 0.7-1.3 [facility] Comment on above: Performed By: #### I NFLUAB #### [facility] [address] [place] [address] Dr. Ashlie Hills Free Ewing Lt Chains,S 45.2 mg/L Critically high 3.3-19.4 [facility] Comment on above: Performed By: #### I NFLUAB #### [facility] [address] [place] [address] [address] Ashlie Hills Free Lambda Lt Chains,S 40.3 mg/L Critically high 5.7-26.3 [facility] Comment on above: Performed By: #### I NFLUAB #### [facility] [address] [place] [address] Dr. Ashlie Hills Gamma Globulin 0.8 g/dL Normal 0.4-1.8 [facility] Comment on above: Performed By: #### I NFLUAB #### [facility] [address] [place] [address] Dr. Ashlie Hills Globulin (S) [Mass/Vol] 3.9 g/dL Normal 2.2-3.9 [facility] Comment on above: Performed By: #### I NFLUAB #### [facility] [address] [place] [address] Dr. Ashlie Hills Immunofixation Result, Serum Comment Normal [facility] Comment on above: Result Comment: No m onoclonality detected. Performed By: #### I NFLUAB #### [facility] [address] [place] [address] Dr. Ashlie Hills Immunoglobulin A, Qn, Serum 776 mg/dL Critically high 87-352 [facility] Comment on above: Performed By: #### I NFLUAB #### [facility] [address] [place] [address] Dr. Ashlie Hills Immunoglobulin G, Qn, Serum 955 mg/dL Normal 586-1602 [facility] Comment on above: Performed By: #### I NFLUAB #### [facility] [address] [place] [address] Dr. Ashlie Hills Immunoglobulin M, Qn, Serum 39 mg/dL Normal 26-217 [facility] Comment on above: Performed By: #### I NFLUAB #### [facility] [address] [place] [address] Dr. Ashlie Hills Ewing/Lambda Ratio, S 1.12 Normal 0.26-1.65 [facility] Comment on above: Performed By: #### I NFLUAB #### [facility] [address] [place] [address] Dr. Aslhie Hills M-Bright Not Observed Normal Not Observed [facility] Comment on above: Performed By: #### I NFLUAB #### [facility] [address] [place] [address] Dr. Ashlie Hills PDF . Normal [facility] Comment on above: Performed By: #### I NFLUAB #### [facility] [address] [place] [address] Dr. Ashlie Hills Please note: Comment Normal [facility] Comment on above: Result Comment: Prot ein electrophoresis scan will follow via computer, mail, or pen maker delivery. Performed By: #### I NFLUAB #### [facility] [address] [place] [address] Dr. Ashlie Hills Protein [Mass/Vol] 6.9 g/dL Normal 6.0-8.5 [facility] Comment on above: Performed By: #### I NFLUAB #### [facility] [address] [place] [address] Dr. Ashlie Hills C-PEPTIDE, SERUMon C-Peptide, Serum 3.1 ng/mL Normal 1.1-4.4 [facility] Comment on above: Result Comment: C-Pe ptide reference interval is for fasting patients. Performed By: #### C PEPT #### [facility] [address] [place] [address] Dr. Ashlie Hills HEP B SURFACE ANTIGEN SCREEN on 03-04-2022 HBsAg Screen Negative Normal Negative [facility] Comment on above: Performed By: #### C BC #### [facility] [address] [place] [address] Dr. Ashlie Hills HEPATITIS C VIRUS AB W/ REFL EX QUANTon 03-04-2022 HCV AB <0.1 Normal 0.0-0.9 [facility] Comment on above: Performed By: #### I NFLUAB #### [facility] [address] [place] [address] Dr. Ashlie Hills Interpretation: Comment Normal [facility] Comment on above: Result Comment: Nega tive Not infected with HCV, unless recent infection is suspected or other evidence exists to indicate HCV infection. Performed By: #### I NFLUAB #### [facility] [address] [address] [address] Ashlie Hills MICROALBUMIN/ CREATININE RAT IOon 03-04-2022 Albumin, Urine 367.4 ug/mL Normal Not Estab. [facility] Comment on above: Performed By: #### C BC #### [facility] [address] [address] [address] Ashlie Hills Albumin/ Creatinine Ratio 239 mg/g creat Critically high 0-29 [facility] Comment on above: Result Comment: Norm al: 0 - 29 Moderately increased: 30 - 300 Severely increased: >300 Performed By: #### C BC #### [facility] [address] [address] [address] Ashlie Hills Creatinine, Urine 153.9 mg/dL Normal Not Estab. [facility] Comment on above: Performed By: #### C BC #### [facility] [address] [address] [address] Ashlie Hills VIT D 25-OH LABCORPon 2021 Vitamin D, 25-Hydroxy <4.0 Critically low 30.0-100.0 [facility] Comment on above: Result Comment: Graciela min D deficiency has been defined by the [place] of Medicine and an Endocrine Society practice guideline as a level of serum 25-OH vitamin D less than 20 ng/mL (1,2). The Endocrine Society went on to further define vitamin D insufficiency as a level between 21 and 29 ng/mL (2). 1. IOM ([place] of Medicine). 2010. Dietary reference intakes for calcium and D. [place]: The National Academies Press. 2. Lynda MF, Keely [place], Leandra LOPEZ, et al. Evaluation, treatment, and prevention of vitamin D deficiency: an Endocrine Society clinical practice guideline. JCEM. 2010; 96(7):1911-30. Performed By: #### C BC #### [facility] [address] [address] [address] Ashlie Hills GLYCOHEMOGLOBIN A1Con 2021 ADA RECOMMENDATION SEE BELOW Normal [facility] Comment on above: Result Comment: ADA RECOMMENDED LIMIT 4.0 - 6.0 ADA THERAPEUTIC TARGET < 7.0 ACTION SUGGESTED > 7.0 Performed By: #### C VDAGS #### [facility] [address] [place] [address] Dr. Ashlie Hills Glucose [Mass/Vol] 295 mg/dL Normal [facility] Comment on above: Performed By: #### C VDAGS #### [facility] [address] [place] [address] Dr. Ashlie Hills HbA1c (Bld) [Mass fraction] 11.9 % Critically high 4.5-6.2 [facility] Comment on above: Performed By: #### C VDAGS #### [facility] [address] [place] [address] Dr. Ashlie Hills HEMOGRAM AND PLATELon 2021 Hematocrit (Bld) [Volume fraction] 56.3 % Critically high 36.0-48.0 [facility] Comment on above: Performed By: #### C VDAGS #### [facility] [address] [address] [address] Ashlie Hills Hemoglobin (Bld) [Mass/Vol] 18.0 g/dL Critically high 12.0-16.0 [facility] Comment on above: Performed By: #### C VDAGS #### [facility] [address] [place] [address] Dr. Ashlie Hills MCH (RBC) [Entitic mass] 29.5 pg Normal 26.7-34.0 [facility] Comment on above: Performed By: #### C VDAGS #### [facility] [address] [address] [address] Ashlie Hills MCHC (RBC) [Mass/Vol] 32.0 g/dL Normal 29.9-35.2 [facility] Comment on above: Performed By: #### C VDAGS #### [facility] [address] [place] [address] Dr. Ashlie Hills MCV (RBC) [Entitic vol] 92.1 fL Normal 81.0-99.0 [facility] Comment on above: Performed By: #### C VDAGS #### [facility] [address] [place] [address] Dr. Ashlie Hills PLT 123 103/ul Critically low 150-450 [facility] Comment on above: Performed By: #### C VDAGS #### [facility] [address] [address] [address] Ashlie Hills RBC 6.11 106/ul Critically high 4.20-5.40 [facility] Comment on above: Performed By: #### C VDAGS #### [facility] [address] [place] [address] Dr. Ashlie Hills WBC 16.4 103/ul Critically high 4.0-11.0 [facility] Comment on above: Performed By: #### C VDAGS #### [facility] [address] [place] [address] Dr. Ashlie Hills LIPID PROFILEon 03-03-2022 CHOL-HDL RATIO NORM SEE BELOW Normal [facility] Comment on above: Result Comment: 3.3 - 4.4 LOW RISK 4.4 - 7.1 AVERAGE RISK 7.1 - 11.0 MODERATE RISK >11.0 HIGH RISK Performed By: #### C VDAGS #### [facility] [address] [place] [address] Dr. Ashlie Hills Cholesterol [Mass/Vol] 159 mg/dL Normal <=[address] [facility] Comment on above: Performed By: #### C VDAGS #### [facility] [address] [place] [address] Dr. Ashlie Hills Cholesterol in HDL [Mass/Vol] 40 mg/dL Normal 40-60 [facility] Comment on above: Performed By: #### C VDAGS #### [facility] [address] [place] [address] Dr. Ashlie Hills Cholesterol in LDL [Mass/Vol] 81.8 mg/dL Normal [facility] Comment on above: Performed By: #### C VDAGS #### [facility] [address] [address] [address] Ashlie Hills Cholesterol.total/Chol esterol in HDL [Mass ratio] 4.0 {ratio} Normal [facility] Comment on above: Performed By: #### C VDAGS #### [facility] [address] [address] [address] Ashlie Hills HDL NORMAL > or = 60 mg/dl - LOW CARDIOVASCULAR RISK <40 mg/dl - HIGH CARDIOVASCULAR RISK Normal [facility] Comment on above: Performed By: #### C VDAGS #### [facility] [address] [address] [address] Ashlie Hills LDL CALC NORMAL SEE BELOW Normal [facility] Comment on above: Result Comment: <100 mg/dl OPTIMAL 100 - 129 mg/dl NEAR OR ABOVE OPTIMAL 130 - 159 mg/dl BORDERLINE HIGH 160 - 189 mg/dl HIGH >190 mg/dl VERY HIGH Performed By: #### C VDAGS #### [facility] [address] [address] [address] Ashlie Hills Triglyceride [Mass/Vol] 186 mg/dL Critically high <=150 [facility] Comment on above: Performed By: #### C VDAGS #### [facility] [address] [address] [address] Ashlie Hills VLDL CALC 37.2 mg/dL Normal [facility] Comment on above: Performed By: #### C VDAGS #### [facility] [address] [address] [address] Ashlie Hills RENAL FUNCTION PANELon 03-03 Albumin [Mass/Vol] 3.1 g/dL Critically low 3.4-5.0 [facility] [place] Comment on above: Performed By: #### C BC #### [facility] [address] [address] [address] Ashlie Hills Calcium [Mass/Vol] 9.2 mg/dL Normal 8.5-10.1 [facility] Comment on above: Performed By: #### C BC #### [facility] [address] [address] [address] Ashlie Hills Chloride [Moles/Vol] 102 mmol/L Normal 98-107 [facility] Comment on above: Performed By: #### C BC #### [facility] [address] [place] [address] Dr. Ashlie Hills CO2 [Moles/Vol] 31.9 mmol/L Normal 21.0-32.0 [facility] Comment on above: Performed By: #### C BC #### [facility] [address] [place] [address] Dr. Ashlie Hills Creatinine [Mass/Vol] 0.68 mg/dL Normal 0.55-1.02 [facility] Comment on above: Performed By: #### C BC #### [facility] [address] [place] [address] Dr. Ashlie Hills EGFR-AF KITTITIAN >60 Normal >=60 [facility] Comment on above: Performed By: #### C BC #### [facility] [address] [place] [address] Dr. Ashlie Hills EGFR-NON AF KITTITIAN >60 Normal >=60 [facility] Comment on above: Performed By: #### C BC #### [facility] [address] [address] [address] Ashlie Hills Glucose [Mass/Vol] 131 mg/dL Critically high 74-106 [facility] Comment on above: Performed By: #### C BC #### [facility] [address] [place] [address] Dr. Ashlie Hills Phosphate [Mass/Vol] 4.0 mg/dL Normal 2.6-4.7 [facility] Comment on above: Performed By: #### C BC #### [facility] [address] [place] [address] Dr. Ashlie Hills Potassium [Moles/Vol] 4.0 mmol/L Normal 3.5-5.1 [facility] Comment on above: Performed By: #### C BC #### [facility] [address] [address] [address] Ashlie Hills Sodium [Moles/Vol] 141 mmol/L Normal 136-145 [facility] Comment on above: Performed By: #### C BC #### [facility] [address] [place] [address] Dr. Ashlie Hills Urea nitrogen [Mass/Vol] 17.0 mg/dL Normal 7.0-18.0 [facility] Comment on above: Performed By: #### C BC #### [facility] [address] [place] [address] Dr. Ashlie Hills UA RANDOM W/MICROSCOPICon BACTERIA NONE SEEN Normal NONE SEEN [facility] Comment on above: Performed By: #### I NFLUAB #### [facility] [address] [place] [address] Dr. Ashlie Hills Bilirubin Ql (U) Negative Normal NEGATIVE [facility] Comment on above: Performed By: #### I NFLUAB #### [facility] [address] [place] [address] Dr. Ashlie Hills CAST NONE SEEN Normal NONE SEEN [facility] Comment on above: Performed By: #### I NFLUAB #### [facility] [address] [place] [address] Dr. Ashlie Hills Clarity (U) CLEAR Normal CLEAR [facility] Comment on above: Performed By: #### I NFLUAB #### [facility] [address] [place] [address] Dr. Ashlie Hills Color (U) YELLOW Normal YELLOW [facility] Comment on above: Performed By: #### I NFLUAB #### [facility] [address] [place] [address] Dr. Ashlie Hills Crystals LM Nom (Urine sed) NONE SEEN Normal NONE SEEN [facility] Comment on above: Performed By: #### I NFLUAB #### [facility] [address] [place] [address] Dr. Ashlie Hills Epithelial cells LM Ql (Urine sed) FEW Abnormal NONE SEEN /RARE [facility] Comment on above: Performed By: #### I NFLUAB #### [facility] [address] [place] [address] Dr. Ashlie Hills Glucose Ql (U) Negative Normal NEGATIVE [facility] Comment on above: Performed By: #### I NFLUAB #### [facility] [address] [address] [address] Ashlie Hills Hemoglobin Ql (U) Negative Normal NEGATIVE [facility] Comment on above: Performed By: #### I NFLUAB #### [facility] [address] [address] [address] Ashlie Hills Ketones Ql (U) Negative Normal NEGATIVE [facility] Comment on above: Performed By: #### I NFLUAB #### [facility] [address] [place] [address] Dr. Ashlie Hills LEUKOCYTES Negative Normal NEGATIVE [facility] Comment on above: Performed By: #### I NFLUAB #### [facility] [address] [place] [address] Dr. Ashlie Hills MUCOUS NONE SEEN Normal NONE SEEN [facility] Comment on above: Performed By: #### I NFLUAB #### [facility] [address] [place] [address] Dr. Ashlie Hills Nitrite Ql (U) Negative Normal NEGATIVE [facility] Comment on above: Performed By: #### I NFLUAB #### [facility] [address] [place] [address] Dr. Ashlie Hills pH (U) 5.5 [pH] Normal 5-9 [facility] Comment on above: Performed By: #### I NFLUAB #### [facility] [address] [place] [address] Dr. Ashlie Hills RBC 0-2 Normal 0-2 [facility] Comment on above: Performed By: #### I NFLUAB #### [facility] [address] [place] [address] Dr. Ashlie Hills SPEC GRAVITY >=1.030 Abnormal 1.005-<=1.025 [facility] Comment on above: Performed By: #### I NFLUAB #### [facility] [address] [place] [address] Dr. Ashlie Hills UA PROTEIN 100 mg/dl Abnormal NEGATIVE/ TRACE [facility] Comment on above: Performed By: #### I NFLUAB #### [facility] [address] [place] [address] Dr. Ashlie Hills Urobilinogen Qn (U) 0.2 {Little'U}/dL Normal 0.2 - 1. 0 [facility] Comment on above: Performed By: #### I NFLUAB #### [facility] [address] [place] [address] Dr. Ashlie Hills WBC NONE SEEN Normal NONE SEEN [facility] Comment on above: Performed By: #### I NFLUAB #### [facility] [address] [place] [address] Dr. Ashlie Hills URIC ACID SERUMon 03-03-2022 Urate [Mass/Vol] 5.0 mg/dL Normal 2.6-6.0 [facility] Comment on above: Performed By: #### I NFLUAB #### [facility] [address] [place] [address] Dr. Ashlie Hills URINE T PROTEIN CREAT RATIOo n 03-03-2022 Protein (U) [Mass/Vol] 77.9 mg/dL Critically high <=12.0 [facility] Comment on above: Performed By: #### C VDAGS #### [facility] [address] [place] [address] Dr. Ashlie Hills UR PROT CREAT RAT 0.44 Normal [facility] Comment on above: Performed By: #### C VDAGS #### [facility] [address] [place] [address] Dr. Ashlie Hills URINE CREAT 175.15 mg/dL Normal 20.00-300.00 [facility] Comment on above: Performed By: #### C VDAGS #### [facility] [address] [place] [address] Dr. Ashlie Hills CULTURE URINEon 12-25-2021 CULTURE URINE Culture Observations: GREATER THAN TWO ORGANISMS PRESENT, HEAVILY MIXED. PLEASE RESUBMIT CLEAN CATCH MID-STREAM URINE IF CLINICALLY INDICATED. Normal [facility] Comment on above: Performed By: #### I NFLUAB #### [facility] [address] [place] [address] Dr. Ashlie Hills CBC AUTO DIFFon 12-24-2021 BASO # 0.1 103/ul Normal 0.0-0.1 [facility] Comment on above: Performed By: #### C BC #### [facility] [address] [address] [address] Ashile Hills Basophils/100 WBC (Bld) 0.5 % Normal 0.2-2.0 [facility] Comment on above: Performed By: #### C BC #### [facility] [address] [address] [address] Ashlie Hills EO # 0.4 103/ul Normal 0.0-0.7 [facility] Comment on above: Performed By: #### C BC #### [facility] [address] [address] [address] Ashlie Hills Eosinophils/100 WBC (Bld) 2.4 % Normal 0.9-7.0 [facility] Comment on above: Performed By: #### C BC #### [facility] [address] [address] [address] Ashlie Hills Erythrocyte distribution width (RBC) [Ratio] 14.1 % Normal 11.0-15.0 [facility] Comment on above: Performed By: #### C BC #### [facility] [address] [address] [address] Ashlie Hills Hematocrit (Bld) [Volume fraction] 55.9 % Critically high 36.0-48.0 [facility] Comment on above: Performed By: #### C BC #### [facility] [address] [address] [address] Ashlie Hills Hemoglobin (Bld) [Mass/Vol] 17.9 g/dL Critically high 12.0-16.0 [facility] Comment on above: Performed By: #### C BC #### [facility] [address] [address] [address] Ashlie Hills IG # 0.06 10e3/ul Critically high 0.00-0.03 [facility] Comment on above: Performed By: #### C BC #### [facility] [address] [place] [address] Dr. Ashlie Hills IG % 0.4 % Normal 0.0-0.5 [facility] Comment on above: Performed By: #### C BC #### [facility] [address] [place] [address] Dr. Ashlie Hills LYMPH # 5.8 103/ul Critically high 1.2-3.8 [facility] Comment on above: Performed By: #### C BC #### [facility] [address] [place] [address] Dr. Ashlie Hills Lymphocytes/100 WBC (Bld) 35.4 % Normal 20.5-60.0 [facility] Comment on above: Performed By: #### C BC #### [facility] [address] [place] [address] Dr. Ashlie Hills MANUAL DIFF REQ NO Normal [facility] Comment on above: Performed By: #### C BC #### [facility] [address] [place] [address] Dr. Ashlie Hills MCH (RBC) [Entitic mass] 29.4 pg Normal 26.7-34.0 [facility] Comment on above: Performed By: #### C BC #### [facility] [address] [place] [address] Dr. Ashlie Hills MCHC (RBC) [Mass/Vol] 32.0 g/dL Normal 29.9-35.2 [facility] Comment on above: Performed By: #### C BC #### [facility] [address] [place] [address] Dr. Ashlie Hills MCV (RBC) [Entitic vol] 91.8 fL Normal 81.0-99.0 [facility] Comment on above: Performed By: #### C BC #### [facility] [address] [place] [address] Dr. Ashlie Hills MONO # 0.8 103/ul Normal 0.3-0.8 [facility] Comment on above: Performed By: #### C BC #### [facility] [address] [place] [address] Dr. Ashlie Hills Monocytes/100 WBC (Bld) 4.8 % Normal 1.7-12.0 [facility] Comment on above: Performed By: #### C BC #### [facility] [address] [address] [address] Ashlie Hills NEUT # 9.3 103/ul Critically high 1.4-6.5 [facility] Comment on above: Performed By: #### C BC #### [facility] [address] [place] [address] Dr. Ashlie Hills Neutrophils/100 WBC (Bld) 56.5 % Normal 43.0-75.0 [facility] Comment on above: Performed By: #### C BC #### [facility] [address] [place] [address] Dr. Ashlie Hills Platelet mean volume (Bld) [Entitic vol] 12.9 fL Normal 9.5-13.5 [facility] Comment on above: Performed By: #### C BC #### [facility] [address] [place] [address] Dr. Ashlie Hills PLT 127 103/ul Critically low 150-450 [facility] Comment on above: Performed By: #### C BC #### [facility] [address] [place] [address] Dr. Ashlie Hills RBC 6.09 106/ul Critically high 4.20-5.40 [facility] Comment on above: Performed By: #### C BC #### [facility] [address] [place] [address] Dr. Ashlie Hills WBC 16.4 103/ul Critically high 4.0-11.0 [facility] Comment on above: Performed By: #### C BC #### [facility] [address] [place] [address] ABD/PELVIS WO CONon [...] Severe right hip degenerative change. Normal [facility] URINE PROFILEon 2 Bilirubin Ql (U) Negative Normal NEGATIVE [facility] Comment on above: Performed By: #### MADELINE DIAZRO #### [facility] [address] [place] [address] Dr. Ashlie Hills Clarity (U) CLEAR Normal CLEAR [facility] Comment on above: Performed By: #### Tracey LYMAN UMICRO #### [facility] [address] [place] [address] Dr. Ashlie Hills Color (U) DK. ORANGE Abnormal YELLOW [facility] Comment on above: Performed By: #### MADELINE DIAZRO #### [facility] [address] [place] [address] Dr. Ashlie HOBBS A micrscopic examination will be performed if indicated. Normal [facility] Comment on above: Performed By: #### PEREZ DIAZICRO #### [facility] [address] [place] [address] Dr. Ashlie Hills Glucose Ql (U) 250 mg/dl Abnormal NEGATIVE [facility] Comment on above: Performed By: #### PEREZ DIAZICRO #### [facility] [address] [place] [address] Dr. Ashlie Hills Hemoglobin Ql (U) Negative Normal NEGATIVE [facility] Comment on above: Performed By: #### Tracey LYMAN UMICRO #### [facility] [address] [address] [address] Ashlie Hills Ketones Ql (U) Negative Normal NEGATIVE [facility] Comment on above: Performed By: #### PEREZ DIAZICRO #### [facility] [address] [place] [address] Dr. Ashlie Hills LEUKOCYTES Negative Normal NEGATIVE [facility] Comment on above: Performed By: #### Tracey LYMAN UMICRO #### [facility] [address] [place] [address] Dr. Ashlie Hills Nitrite Ql (U) Negative Normal NEGATIVE [facility] Comment on above: Performed By: #### MADELINE DIAZRO #### [facility] [address] [place] [address] Dr. Ashlie Hills pH (U) 5.0 [pH] Normal 5-9 [facility] Comment on above: Performed By: #### MADELINE DIAZRO #### [facility] [address] [place] [address] Dr. Ashlie Hills Protein (U) [Mass/Vol] 100 mg/dL Abnormal NEGAT YURY/ TRACE [facility] Comment on above: Performed By: #### MADELINE DIAZRO #### [facility] [address] [place] [address] Dr. Ashlie Hills SPEC GRAVITY >=1.030 Abnormal 1.005-<=1.025 [facility] Comment on above: Performed By: #### MADELINE DIAZRO #### [facility] [address] [place] [address] Dr. Ashlie Hills UR MICRO IND INDICATED Normal [facility] Comment on above: Performed By: #### MADELINE DIAZRO #### [facility] [address] [place] [address] Dr. Ashlie Hills Urobilinogen Qn (U) 1.0 {Little'U}/dL Normal 0.2 - 1. 0 [facility] Comment on above: Performed By: #### MADELINE DIAZRO #### [facility] [address] [place] [address] Dr. Ashlie Hills PROF CHEM 8 (BAS METB)on Anion gap [Moles/Vol] 12.1 mmol/L Normal [facility] Comment on above: Performed By: #### I NFLUAB #### [facility] [address] [place] [address] Dr. Ashlie Hills Calcium [Mass/Vol] 9.0 mg/dL Normal 8.5-10.1 [facility] Comment on above: Performed By: #### I NFLUAB #### [facility] [address] [place] [address] Dr. Ashlie Hills Chloride [Moles/Vol] 101 mmol/L Normal 98-107 [facility] Comment on above: Performed By: #### I NFLUAB #### [facility] [address] [place] [address] Dr. Ashlie Hills CO2 [Moles/Vol] 29.1 mmol/L Normal 21.0-32.0 [facility] Comment on above: Performed By: #### I NFLUAB #### [facility] [address] [place] [address] Dr. Ashlie Hills Creatinine [Mass/Vol] 0.86 mg/dL Normal 0.55-1.02 [facility] Comment on above: Performed By: #### I NFLUAB #### [facility] [address] [place] [address] Dr. Ashlie Hills EGFR-AF KITTITIAN >60 Normal >=60 [facility] Comment on above: Performed By: #### I NFLUAB #### [facility] [address] [place] [address] Dr. Ashlie Hills EGFR-NON AF KITTITIAN >60 Normal >=60 [facility] Comment on above: Performed By: #### I NFLUAB #### [facility] [address] [place] [address] Dr. Ashlie Hills Glucose [Mass/Vol] 236 mg/dL Critically high 74-[address] [facility] Comment on above: Performed By: #### I NFLUAB #### [facility] [address] [place] [address] Dr. Ashlie Hills Potassium [Moles/Vol] 4.2 mmol/L Normal 3.5-5.1 [facility] Comment on above: Performed By: #### I NFLUAB #### [facility] [address] [place] [address] Dr. Ashlie Hilsl Sodium [Moles/Vol] 138 mmol/L Normal 136-145 [facility] Comment on above: Performed By: #### I NFLUAB #### [facility] [address] [place] [address] Dr. Ashlie Hills Urea nitrogen [Mass/Vol] 11.0 mg/dL Normal 7.0-18.0 [facility] Comment on above: Performed By: #### I NFLUAB #### [facility] [address] [place] [address] Dr. Ashlie Hills Urea nitrogen/Creatinine [Mass ratio] 12.8 mg/mg Normal [facility] Comment on above: Performed By: #### I NFLUAB #### [facility] [address] [place] [address] Dr. Ashlie Hills URINE MICROSCOPIC ONLYon BACTERIA SMALL Abnormal NONE SEEN [facility] Comment on above: Performed By: #### E NURA UMICRO #### [facility] [address] [place] [address] Dr. Ashlie Hills Bacteria identified Cx Nom (U) INDICATED Normal [facility] Comment on above: Performed By: #### E NURA UMICRO #### [facility] [address] [place] [address] Dr. Ashlie Hills CAST NONE SEEN Normal NONE SEEN [facility] Comment on above: Performed By: #### Tracey LYMAN UMICRO #### [facility] [address] [place] [address] Dr. Ashlie Hills Crystals LM Nom (Urine sed) NONE SEEN Normal NONE SEEN [facility] Comment on above: Performed By: #### Tracey LYMAN UMICRO #### [facility] [address] [place] [address] Dr. Ashlie Hills Epithelial cells LM Ql (Urine sed) MODERATE Abnormal NONE SEEN /RARE [facility] Comment on above: Performed By: #### E RUR UMICRO #### [facility] [address] [place] [address] Dr. Ashlie Hills MUCOUS NONE SEEN Normal NONE SEEN [facility] Comment on above: Performed By: #### E RUR UMICRO #### [facility] [address] [place] [address] Dr. Ashlie Hills RBC 0-2 Normal 0-2 [facility] Comment on above: Performed By: #### E NURA UMICRO #### [facility] [address] [address] [address] Ashlie Hills WBC 0-2 Abnormal NONE SEEN [facility] Comment on above: Performed By: #### E NURA UMICRO #### [facility] [address] [address] [address] Ashlie Hills YEAST PRESENT Abnormal NONE SEEN [facility] Comment on above: Performed By: #### E NURA UMICRO #### [facility] [address] [address] [address] Ashlie Hills HIP RIGHT 1 OR 2 VWS WITH PE LVISon 07-20-2020 HIP RIGHT 1 OR 2 VWS WITH PELVIS [facility] Department of Radiology [address] [place] [id number] Patient Name: MITZI MACIAS : 1970 Sex: F Age: Race: White Pt. Location: Patient Status: O Ordered Date: 07/20/2020 1:45:00 PM Completed Date: 07/20/2020 01:57 PM Requesting Provider: LIZ EISENBERG Attending Provider: LIZ EISENBERG Report Copy To: MCKAYLA BLAS Signs & Symptoms: M25.551 Pain in right hip I10 History: [place] Comments: evaluate Exam: HIP RIGHT 1 OR [...] MRI. Electronically signed: Pipo Acevedo. Transcribed by: [email or web address], User Resident: Electronically Signed by: PIPO ACEVEDO @ 07/20/2020 03:45 PM Normal [facility] Comment on above: Order Comment: evalu ate Vital Signs Date Time Vital Sign Value Performing Clinician Facility 01-29-2025 09:48-0400 Body height 170.2 cm Rain Souza MD Work Phone: [facility] 01-29-2025 09:48-0400 Body mass index (BMI) [Ratio] 56.38 kg/m2 Rain Souza MD Work Phone: [facility] 01-29-2025 09:48-0400 Body weight 163.29 kg Rain Souza MD Work Phone: [facility] 01-29-2025 09:48-0400 Diastolic blood pressure 70 mm[Hg] Rain Souza MD Work Phone: [facility] 01-29-2025 09:48-0400 Heart rate 72 /min Rain Souza MD Work Phone: [facility] 01-29-2025 09:48-0400 Respiratory rate 16 /min Rain Souza MD Work Phone: [facility] 01-29-2025 09:48-0400 SaO2% (BldA) [Mass fraction] 84 % Rain Souza MD Work Phone: [facility] 01-29-2025 09:48-0400 Systolic blood pressure 130 mm[Hg] Rain Souza MD Work Phone: [facility] 01-26-2025 18:11-0400 Body mass index (BMI) [Ratio] 58.64 kg/m2 Mckayla Blas NP Work Phone: [facility] 01-26-2025 18:11-0400 Body temperature 98.49 [degF] Mckayla Aichholz [employer]DHO[employer] TEACHER Work Phone: [facility] 01-26-2025 18:11-0400 Body weight 169.83 kg Mckayla Aichholz [employer]ILDHOOD TEACHER Work Phone: [facility] 01-26-2025 18:11-0400 Diastolic blood pressure 82 mm[Hg] Mckayla Aichholz CHILDHOOD TEACHER Work Phone: [facility] 01-26-2025 18:11-0400 Heart rate 81 /min Mckayla Aichholz CHILDHOOD TEACHER Work Phone: [facility] 01-26-2025 18:11-0400 Respiratory rate 20 /min Mckayla Aichholz CHILDHOOD TEACHER Work Phone: [facility] 01-26-2025 18:11-0400 SaO2% (BldA) [Mass fraction] 90 % Mckayla Aichholz [employer]ILDHOOD TEACHER Work Phone: [facility] 01-26-2025 18:11-0400 Systolic blood pressure 126 mm[Hg] Mckayla Aichholz CHILDHOOD TEACHER Work Phone: [facility] 12-09-2024 10:19-0400 Body temperature 98.01 [degF] Mckayla Aichholz CHILDHOOD TEACHER Work Phone: [facility] 12-09-2024 10:19-0400 Diastolic blood pressure 76 mm[Hg] Mckayla Aichholz CHILDHOOD TEACHER Work Phone: [facility] 12-09-2024 10:19-0400 Heart rate 71 /min Mckayla Aichholz [employer]ILDHOOD TEACHER Work Phone: [facility] 12-09-2024 10:19-0400 Respiratory rate 20 /min Mckayla Aichholz CHILDHOOD TEACHER Work Phone: [facility] 12-09-2024 10:19-0400 SaO2% (BldA) [Mass fraction] 88 % Mckayla Aichholz CHILDHOOD TEACHER Work Phone: [facility] 12-09-2024 10:19-0400 Systolic blood pressure 150 mm[Hg] Mckaylajuvenal Rosenbergz CHILDHOOD TEACHER Work Phone: [facility] 10-27-2024 14:11-0400 Body height 170.2 cm Mckaylajuvenal Patriciaholz CHILDHOOD TEACHER Work Phone: [facility] 10-27-2024 14:11-0400 Body mass index (BMI) [Ratio] 56.51 kg/m2 Mckaylajuvenal Patriciaholz CHILDHOOD TEACHER Work Phone: [facility] 10-27-2024 14:11-0400 Body temperature 98.71 [degF] Mckalyajuvenal Rosenbergz CHILDHOOD TEACHER Work Phone: [facility] 10-27-2024 14:11-0400 Body weight 163.66 kg Mckaylajuvenal Rosenbergz CHILDHOOD TEACHER Work Phone: [facility] 10-27-2024 14:11-0400 Diastolic blood pressure 74 mm[Hg] Mckayla Chetz CHILDHOOD TEACHER Work Phone: [facility] 10-27-2024 14:11-0400 Heart rate 75 /min Mckayla Harshadholz CHILDHOOD TEACHER Work Phone: [facility] 10-27-2024 14:11-0400 Respiratory rate 18 /min Mckaylajuvenal Patriciaholz CHILDHOOD TEACHER Work Phone: [facility] 10-27-2024 14:11-0400 SaO2% (BldA) [Mass fraction] 90 % Mckaylajuvenal Patriciamariyaz CHILDHOOD TEACHER Work Phone: [facility] 10-27-2024 14:11-0400 Systolic blood pressure 132 mm[Hg] Mckayla Harshadholz CHILDHOOD TEACHER Work Phone: [facility] 10-08-2024 11:21-0400 Body height 170.2 cm Rain Souza MD Work Phone: [facility] 10-08-2024 11:21-0400 Body mass index (BMI) [Ratio] 55.91 kg/m2 Rain Souza MD Work Phone: [facility] 10-08-2024 11:21-0400 Body weight 161.93 kg Rain Souza MD Work Phone: [facility] 10-08-2024 11:21-0400 Diastolic blood pressure 70 mm[Hg] Rain Souza MD Work Phone: [facility] 10-08-2024 11:21-0400 Heart rate 70 /min Rain Souza MD Work Phone: [facility] 10-08-2024 11:21-0400 Respiratory rate 16 /min Rain Souza MD Work Phone: [facility] 10-08-2024 11:21-0400 SaO2% (BldA) [Mass fraction] 91 % Rain Souza MD Work Phone: [facility] 10-08-2024 11:21-0400 Systolic blood pressure 130 mm[Hg] Rain Souza MD Work Phone: [facility] 08-27-2024 17:44-0500 Body mass index (BMI) [Ratio] 57.31 kg/m2 Mckayla Blas CHILDHOOD TEACHER Work Phone: [facility] 08-27-2024 17:44-0500 Body temperature 98.01 [degF] Mckayla Blas CHILDHOOD TEACHER Work Phone: [facility] 08-27-2024 17:44-0500 Body weight 165.97 kg Mckayla Wan CHILDHOOD TEACHER Work Phone: [facility] 08-27-2024 17:44-0500 Diastolic blood pressure 76 mm[Hg] Mckayla Wan CHILDHOOD TEACHER Work Phone: [facility] 08-27-2024 17:44-0500 Heart rate 83 /min Mckayla Wan CHILDHOOD TEACHER Work Phone: [facility] 08-27-2024 17:44-0500 Respiratory rate 18 /min Mckayla Wan CHILDHOOD TEACHER Work Phone: [facility] 08-27-2024 17:44-0500 SaO2% (BldA) [Mass fraction] 91 % Mckayla Wan CHILDHOOD TEACHER Work Phone: [facility] 08-27-2024 17:44-0500 Systolic blood pressure 134 mm[Hg] Mckayla Patriciajoide CHILDHOOD TEACHER Work Phone: [facility] 06-11-2024 10:00-0500 Blood Pressure Location Elbert ARAUZ [facility] 06-11-2024 10:00-0500 Diastolic blood pressure 68 mm[Hg] Elbert ARAUZ [facility] 06-11-2024 10:00-0500 Heart rate 76 /min Elbert ARAUZ [facility] 06-11-2024 10:00-0500 Systolic blood pressure 132 mm[Hg] Elbert ARAUZ [facility] 05-27-2024 10:20-0500 Body height 170.2 cm Rain Souza MD Work Phone: [facility] 05-27-2024 10:20-0500 Body mass index (BMI) [Ratio] 56.7 kg/m2 Rain Souza MD Work Phone: [facility] 05-27-2024 10:20-0500 Body weight 164.2 kg Rain Souza MD Work Phone: [facility] 05-27-2024 10:20-0500 Diastolic blood pressure 66 mm[Hg] Rain Souza MD Work Phone: [facility] 05-27-2024 10:20-0500 Heart rate 72 /min Rain Souza MD Work Phone: [facility] 05-27-2024 10:20-0500 Respiratory rate 16 /min Rain Souza MD Work Phone: [facility] 05-27-2024 10:20-0500 Systolic blood pressure 128 mm[Hg] Rain Souza MD Work Phone: [facility] 04-14-2024 10:27-0400 Body height 165.1 cm Mckayla Aichholz CHILDHOOD TEACHER Work Phone: [facility] 04-14-2024 10:27-0400 Body mass index (BMI) [Ratio] 61.01 kg/m2 Mckyala Aichholz CHILDHOOD TEACHER Work Phone: [facility] 04-14-2024 10:27-0400 Body temperature 98.49 [degF] Mckayla Aichholz CHILDHOOD TEACHER Work Phone: [facility] 04-14-2024 10:27-0400 Body weight 166.29 kg Mckayla Aichholz CHILDHOOD TEACHER Work Phone: [facility] 04-14-2024 10:27-0400 Diastolic blood pressure 80 mm[Hg] Mckayla Aichholz CHILDHOOD TEACHER Work Phone: [facility] 04-14-2024 10:27-0400 Heart rate 77 /min Mckayla Aichholz CHILDHOOD TEACHER Work Phone: [facility] 04-14-2024 10:27-0400 Respiratory rate 19 /min Mckayla Aichholz CHILDHOOD TEACHER Work Phone: [facility] 04-14-2024 10:27-0400 SaO2% (BldA) [Mass fraction] 92 % Mckayla Aichholz CHILDHOOD TEACHER Work Phone: [facility] 04-14-2024 10:27-0400 Systolic blood pressure 116 mm[Hg] Mckayla Aichholz CHILDHOOD TEACHER Work Phone: [facility] 03-08-2022 15:00-0400 Body height 170.18 cm Stephanie Cortés Other [facility] [facility] [employer] Other 03-08-2022 15:00-0400 Body temperature 97.6 [degF] Stephanie Tico Other [employer] Other 03-08-2022 15:00-0400 Diastolic blood pressure 72 mm[Hg] Stephanie Tico Other [facility] Other 03-08-2022 15:00-0400 Respiratory rate 20 /min Stephanie Tico Other [employer] [facility] [employer] Other 03-08-2022 15:00-0400 SaO2% (BldA) [Mass fraction] 91 % Stephanie Tico Other [employer] [facility] [employer] Other 03-08-2022 15:00-0400 Systolic blood pressure 131 mm[Hg] Stephanie Tico Other [employer] [employer] Other 02-20-2022 09:20-0400 Body height 170.18 cm Stephanie Tico Other [employer] [facility] [employer] Other 02-20-2022 09:20-0400 Body temperature 96.5 [degF] Stephanie Tico Other [employer] [facility] [employer] Other 02-20-2022 09:20-0400 Diastolic blood pressure 69 mm[Hg] Stephanie Tico Other [facility] [facility] [employer] Other 02-20-2022 09:20-0400 Respiratory rate 20 /min Stephanie Tico Other [employer] [facility] [employer] Other 02-20-2022 09:20-0400 SaO2% (BldA) [Mass fraction] 91 % Stephanie Tico Other [employer] [facility] [employer] Other 02-20-2022 09:20-0400 Systolic blood pressure 129 mm[Hg] Stephanie Cortés Other [employer] Other 02-06-2022 10:24-0400 Blood Pressure Location Elbert ARAUZ [facility] 02-06-2022 10:24-0400 Diastolic blood pressure 76 mm[Hg] Elbert ARAUZ [facility] [place] 02-06-2022 10:24-0400 Heart rate 70 /min Elbert ARAUZ [facility] 02-06-2022 10:24-0400 Respiratory rate 16 /min Elbert ARAUZ [facility] [place] 02-06-2022 10:24-0400 Systolic blood pressure 134 mm[Hg] Elbert ARAUZ [facility] Encounters Encounter Date Encounter Type Care Provider Facility Start: 02-26-2025 ambulatory Flynn Urias DPM F acility:Ortho/[facility] Start: 01-29-2025 End: 01-29-2025 Diana flowsheet Rain Souza MD Work Phone: [facility] Start: 01-29-2025 End: 01-29-2025 Diana flowsneal Souza MD [facility] Start: 01-29-2025 End: 01-29-2025 Clinisync Result Encounter Generic External Data Provider [facility] External Department Unsolicited Start: 01-29-2025 End: 01-29-2025 ambulatory RAIN SOUZA Not Available Start: 01-29-2025 End: 01-29-2025 Office outpatient visit 25 minutes Rain Souza MD Work Phone: [facility] Comment on above: Encounter for [...] to 59.9 in adult ([facility]) Start: 01-26-2025 End: 01-26-2025 ambulatory MCKAYLA BLAS Not Available Start: 01-26-2025 End: 01-26-2025 Patient encounter procedure Mckayla Blas CHILDHOOD TEACHER Work Phone: [facility] Comment on above: Encounter for subseq uent [...] to excess calories ([facility]) Start: 01-06-2025 End: 01-06-2025 ambulatory [facility] Start: 12-18-2024 End: 12-19-2024 Refill Mckayla Blas CHILDHOOD TEACHER Work Phone: [facility] Comment on above: Hyperlipidemia, unsp ecified ; Tobacco user; Encounter for smoking cessation counseling Start: 12-09-2024 End: 12-09-2024 Bamboo flowsheet Mckayla Wan CHILDHOOD TEACHER Work Phone: [facility] Start: 12-09-2024 End: 12-09-2024 Bamboo flowsheet Mckayla Wan CHILDHOOD TEACHER Work Phone: [facility] Start: 12-09-2024 End: 12-09-2024 ambulatory MCKAYLA HARSHADHOLZ Not Available Start: 12-09-2024 End: 12-09-2024 Office outpatient visit 25 minutes Mckayla Blas CHILDHOOD TEACHER Work Phone: [facility] Comment on above: Cellulitis of left [...] Unsolicited Start: 10-27-2024 End: 10-27-2024 ambulatory MCKAYLA LARAHHOLZ Not Available Start: 10-27-2024 End: 10-27-2024 Office outpatient visit 25 minutes Mckayla Blas CHILDHOOD TEACHER Work Phone: [facility] Comment on above: Primary hypertension (CMS/HCC) [...] 10-21-2024 Refill Mckayla Blas NP Work Phone: [facility] Comment on above: Chronic obstructive pulmonary disease, unspecified Start: 10-08-2024 End: 10-08-2024 Clinisync Result Encounter Mckayla Blas NP Work Phone: [facility] External Department Unsolicited Start: 10-08-2024 End: 10-08-2024 Clinisync Result Encounter Mckayla Blas NP Work Phone: [facility] External Department Unsolicited Start: 10-08-2024 End: 10-08-2024 Office outpatient visit 25 minutes Rain Souza MD Work Phone: [facility] Comment on above: Type 2 [...] minutes Mckayla Blas NP Work Phone: [facility] Comment on above: Anxiety and depressi on (CMS/HCC) (Primary Dx); Morbid (severe) obesity due to excess calories (CMS/HCC); Body mass index (BMI) 50.0-59.9, adult (CMS/HCC); Malignant neoplasm of cervix uteri, unspecified (CMS/HCC); Diabetic polyneuropathy associated with type 2 diabetes mellitus (CMS/HCC); Chronic diastolic heart failure ([facility]); Primary hypertension ([facility]); 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 ([facility]); Gastroesophageal reflux disease, unspecified whether esophagitis present; Bilateral lower extremity edema; Type 2 diabetes mellitus with complication, with long-term current use of insulin ([facility]); Tobacco user; Mixed hyperlipidemia ([facility]); Gout, unspecified cause, unspecified chronicity, unspecified site; Vitamin deficiency; Gastro-esophageal reflux disease without esophagitis; Edema, unspecified; Edema; Hyperlipidemia, unspecified ([facility]); Encounter for smoking cessation counseling; Venous ulcer of right leg ([facility]); Antibiotic-induced yeast infection Start: 08-27-2024 End: 08-27-2024 ambulatory MCKAYLA BLAS Not Available Start: 08-27-2024 End: 08-27-2024 Clinisync Result Encounter Generic External Data Provider [facility] External Department Unsolicited Start: 08-27-2024 End: 08-27-2024 Clinisync Result Encounter Generic External Data Provider [facility] External Department Unsolicited Start: 08-08-2024 End: 08-08-2024 ambulatory [facility] Start: 07-17-2024 End: 07-17-2024 Refill Mckayla Blas NP Work Phone: [facility] Start: 07-14-2024 End: 07-14-2024 Office outpatient visit 25 minutes Mckayla Blas NP Work Phone: [facility] Comment on above: Primary hypertension ([facility]) (Primary Dx); Diabetic polyneuropathy associated with type 2 diabetes mellitus ([facility]); Pulmonary emphysema, unspecified emphysema type ([facility] Critical limb ischemia of right lower extremity ([facility]); PAD (peripheral artery disease) ([facility]); Gastroesophageal reflux disease, unspecified whether esophagitis present; Bilateral lower extremity edema; Venous ulcer of right leg ([facility]); Type 2 diabetes mellitus with complication, with long-term current use of insulin ([facility]); Tobacco user; Encounter for smoking cessation counseling; Kidney stone; Adrenal mass 1 cm to 4 cm in diameter ([facility]); Radiculopathy, lumbar region; Non-seasonal allergic rhinitis, unspecified trigger; Type 2 diabetes mellitus with unspecified complications ([facility]) Start: 07-14-2024 End: 07-14-2024 ambulatory MCKAYLA LARACayetanoJODIE Not Available Start: 07-05-2024 End: 07-07-2024 Refill Mckayla Wan CHILDHOOD TEACHER Work Phone: [facility] Comment on above: Bilateral lower extr emity edema Start: 06-11-2024 ambulatory Elbert Mahnaz ARAUZ Facili ty:[facility] [place] Start: 06-11-2024 End: 06-11-2024 Patient encounter procedure Elbert ARAUZ [facility] Start: 05-27-2024 End: 05-27-2024 Bamboo flowsheet Rain Souza MD Work Phone: [facility] Start: 05-27-2024 End: 05-27-2024 Bamboo flowsheet Rain Souza MD Work Phone: [facility] Start: 05-27-2024 End: 05-27-2024 ambulatory RAIN SOUZA Not Available Start: 05-27-2024 End: 05-27-2024 Office outpatient visit 25 minutes Rain Souza MD Work Phone: [facility] Comment on above: Type 2 diabetes asiya itus with hyperglycemia, with long-term current use of insulin ([facility]) (Primary Dx); Encounter for dietary consultation; Vitamin D deficiency; Primary hypertension ([facility]); Insulin long-term use ([facility]); Hyperlipemia, mixed ([facility]); Microalbuminuria; Class 3 severe obesity due to excess calories with serious comorbidity and body mass index (BMI) of 50.0 to 59.9 in adult ([facility]) Start: 05-12-2024 End: 05-12-2024 Clinisync Result Encounter Generic External Data Provider [facility] External Department Unsolicited Start: 05-12-2024 End: 05-12-2024 Clinisync Result Encounter Generic External Data Provider [facility] External Department Unsolicited Start: 05-08-2024 ambulatory SARAH Wilkerson ty:SHEA Villalobos Start: 04-14-2024 End: 04-14-2024 Bamboo flowsheet Mckayla Aichholz CHILDHOOD TEACHER Work Phone: [facility] Start: 04-14-2024 End: 04-14-2024 Bamboo flowsheet Mckayla Aichholz CHILDHOOD TEACHER Work Phone: [facility] Start: 04-14-2024 End: 04-14-2024 Office outpatient visit 25 minutes Mckayla Aichholz CHILDHOOD TEACHER Work Phone: [facility] Comment on above: Primary [...] Start: 04-05-2024 End: 04-06-2024 Refill Mckayla Aichholz CHILDHOOD TEACHER Work Phone: [facility] Comment on above: Hyperlipidemia, unsp ecified (CMS/HCC); Bilateral lower extremity edema Vitamin D deficiency , unspecified Start: 01-17-2024 Patient encounter procedure Rain Souza MD Work Phone: [facility] Start: 08-17-2023 Refill Mckayla Aichholz CHILDHOOD TEACHER Work Phone: [facility] Comment on above: Vaginal yeast infect ion (Primary Dx) Start: 08-14-2023 Refill Mckayla Aichholz CHILDHOOD TEACHER Work Phone: [facility] Comment on above: Type 2 diabetes asiya itus with unspecified complications (CMS/[facility]); Edema, unspecified; Edema Start: 12-05-2022 ambulatory NARENDRANSHERITA LAKSHMIPATHY . Facility:[facility] Start: 12-05-2022 End: 12-06-2022 Evaluation and management of inpatient UMBERTO HEALYP . Facility:[facility] Start: 11-23-2022 End: 11-23-2022 ambulatory LINE MAINTAINER MCKAYLA BLAS Facility:[facility] Start: 11-22-2022 End: 11-23-2022 ambulatory SAYDA ASENCIO WAN Facility:[facility] Start: 11-17-2022 End: 11-18-2022 ambulatory SUBHASH GASPAR . Facility:[facility] Start: 11-15-2022 End: 11-15-2022 Patient encounter procedure SARAH VEGA [facility] Start: 10-05-2022 End: 10-05-2022 ambulatory MARIANO [...] 03-08-2022 End: 03-08-2022 ambulatory Stephanie Tico Other [employer] Other Start: 03-08-2022 Office outpatient vi sit 15 minutes Stephanie Tico [facility] Start: 03-03-2022 End: 03-04-2022 ambulatory LINE MAINTAINER MCKAYLA BLAS Facility:[facility] Start: 02-20-2022 End: 02-20-2022 ambulatory Stephanie Tico Other [facility] [facility] Other Start: 02-20-2022 Office outpatient ne w 45 minutes Stephanie Tico [facility] Start: 02-06-2022 End: 02-06-2022 Patient encounter procedure Elbert ARAUZ [facility] Start: 01-19-2022 End: 01-20-2022 ambulatory GIL VALENZUELA . Facility:[facility] Start: 12-24-2021 End: 12-24-2021 ambulatory OLE RAMIREZ Facility:[facility] Start: 08-26-2020 End: 09-10-2020 Patient encounter procedure MARY TAVERAS Facility:[facility] Start: 10-30-2019 End: 10-30-2019 Emergency department patient visit [facility] Start: 10-30-2019 End: 10-30-2019 Emergency department patient visit [facility] Start: 11-02-2016 Preoperative state Stephanie Tico Other [employer] Other Procedures Date Procedure Procedure Detail [...] Rain Souza MD Work Phone: Start: 10-08-2024 [facility] UA (CLEAN/CATCH) MICROSCOPIC IF INDICATE Mckayla Blas NP Work Phone: Start: 08-27-2024 ALL CBC WITH AUTO DIFF Generic External Data Provider Start: 05-27-2024 Gluc bld gluc mntr d ev cleared fda spec home use Rain Souza MD Work Phone: Start: 05-12-2024 [facility] CREATININE Generic External Data Provider Start: 12-14-2023 Mammography Rain urena MD Work Phone: Start: 11-22-2022 Mammography Mckayla clifford CHILDHOOD TEACHER Work Phone: Start: 10-08-2015 Microscopic observat ion [Identifier] in Cervix by Cyto stain Mckayla Blas NP Work Phone: H/O: hysterectomy Elbert TIKA LARA Laparoscopic cholecystectomy Elbert ARAUZ Operative procedure on foot Elbert ARAUZ Plan of Treatment Date Care Activity Detail Author Start: 02-01-2026 End: 02-01-2026 Patient encounter procedure 02/01/2026 6:00 PM EDT Office Visit [facility] [address] [place] [phone] Mckayla Blas NP [address] [place] [phone] [facility] Start: 01-26-2026 Medicare Annual Wellness (AWV) Medicare Annual Wellness (AWV) [facility] Start: 10-08-2025 Urine screening for protein Diabetes: Urine Protein Screening [facility] Start: 08-03-2025 Screening for malignant neoplasm of colon [facility] Start: 07-14-2025 Glaucoma screening Diabetes: R etinopathy Screening [facility] Start: 05-28-2025 End: 05-28-2025 Patient encounter procedure 05/28/2025 10:30 AM EST Office Visit [facility] [address] [place] [address] Rain Souza MD [address] [place] [address] [facility] Start: 05-13-2025 Glaucoma screening Diabetes: R etinopathy Screening [facility] Start: 05-01-2025 Hemoglobin A1c measurement Diabetes: Hemoglobin A1C [facility] Start: 04-29-2025 End: 04-29-2025 Patient encounter procedure 04/29/2025 6:00 PM EDT [facility] [address] [place] [phone] Mckayla lBas, CHILDHOOD TEACHER [address] [place] [phone] [facility] Start: 03-09-2025 Influenza vaccination [facility] Start: 01-28-2025 End: 01-28-2025 Patient encounter procedure 01/28/2025 10:50 AM EDT Office Visit [facility] [address] [place] [phone] Rain Souza MD [address] [place] [address] [facility] Start: 01-26-2025 End: 01-26-2025 Patient encounter procedure 01/26/2025 6:00 PM EDT [facility] [address] [place] [phone] Mckayla Blas, CHILDHOOD TEACHER [address] [place] [address] [facility] Start: 01-16-2025 Medicare Annual Wellness (AWV) Medicare Annual Wellness (AWV) [facility] Start: 01-07-2025 Hemoglobin A1c measurement Diabetes: Hemoglobin A1C [facility] Start: 12-15-2024 End: 12-27-2025 MG Breast - bilateral Screening Bilateral screening mammogram Imaging Routine Encounter for screening mammogram for malignant neoplasm of breast Expected: 12/15/2024 (Approximate), Expires: 12/27/2025 [facility] Work Phone: Comment on above: Expected: 12/15/2024 (Approximate), Expires: 12/27/2025 Start: 12-13-2024 Screening for malignant neoplasm of breast Mammogram [facility] Start: 11-11-2024 Urine screening for protein Diabetes: Urine Protein Screening [facility] Start: 10-27-2024 End: 10-27-2024 Patient encounter procedure 10/27/2024 2:00 PM EDT Office Visit [facility] [address] [place] [address] Mckayla Blas, SILVANO [address] [place] [phone] [facility] Start: 10-08-2024 End: 10-08-2024 Patient encounter procedure 10/08/2024 11:20 AM EDT Office Visit [facility] [address] [place] [address] Rain Souza MD [address] [place] [address] [facility] Start: 08-27-2024 End: 08-27-2024 Patient encounter procedure 08/27/2024 5:30 PM EST Office Visit [facility] [address] [place] [phone] Mckayla Blas, CHILDHOOD TEACHER [address] [place] [address] [facility] Start: 08-27-2024 End: 08-27-2025 25-hydroxyvitamin D3 [Mass/volume] in Serum or Plasma Vitamin D 25 hydroxy Lab Routine Vitamin deficiency Expected: 08/27/2024 (Approximate), Expires: 08/27/2025 [facility] Comment on above: Expected: 08/27/2024 (Approximate), Expires: 08/27/2025 Start: 08-27-2024 Hemoglobin A1c measurement Diabetes: Hemoglobin A1C [facility] Start: 08-27-2024 End: 08-27-2025 Hepatic function 2000 panel - Serum or Plasma Hepatic function panel Lab Routine Hyperlipidemia, unspecified (CMS/HCC) Expected: 08/27/2024 (Approximate), Expires: 08/27/2025 [facility] Comment on above: Expected: 08/27/2024 (Approximate), Expires: 08/27/2025 Start: 08-27-2024 End: 08-27-2025 Lipid 1996 panel - Serum or Plasma Lipid panel Lab Routine Mixed hyperlipidemia (CMS/HCC) Expected: 08/27/2024 (Approximate), Expires: 08/27/2025 [facility] Work Phone: Comment on above: Expected: 08/27/2024 (Approximate), Expires: 08/27/2025 Start: 08-27-2024 End: 08-27-2025 Microalbumin/Creatini ne panel in random Urine Microalbumin / creatinine, urine ratio Lab Routine Primary hypertension (CMS/HCC) Type 2 diabetes mellitus with complication, with long-term current use of insulin ([facility]/HCC) Expected: 08/27/2024 (Approximate), Expires: 08/27/2025 [facility] Comment on above: Expected: 08/27/2024 (Approximate), Expires: 08/27/2025 Start: 08-27-2024 End: 08-27-2025 Urate [Mass/volume] in Serum or Plasma Uric acid Lab Routine Gout, unspecified cause, unspecified chronicity, unspecified site Expected: 08/27/2024 (Approximate), Expires: 08/27/2025 [facility] Comment on above: Expected: 08/27/2024 (Approximate), Expires: 08/27/2025 Start: 08-27-2024 End: 08-27-2025 Urinalysis complete panel - Urine Urinalysis with reflex microscopic (clean catch) Lab Routine Primary hypertension ([facility]) Type 2 diabetes mellitus with complication, with long-term current use of insulin ([facility]) Tobacco user Gout, unspecified cause, unspecified chronicity, unspecified site Expected: 08/27/2024 (Approximate), Expires: 08/27/2025 [facility] Comment on above: Expected: 08/27/2024 (Approximate), Expires: 08/27/2025 Start: 08-26-2024 End: 08-26-2024 Patient encounter procedure 08/26/2024 10:30 AM EST Office Visit [facility] [address] [place] [phone] Rain Souza MD [address] [place] [address] [facility] Start: 07-14-2024 End: 07-14-2024 Patient encounter procedure 07/14/2024 6:30 PM EST Office Visit [facility] [address] [place] [address] Mckayla Blas NP [address] [place] [address] [facility] Start: 07-14-2024 End: 07-14-2024 Patient encounter procedure 07/14/2024 10:10 AM EST Office Visit [facility] [address] [place] [phone] Rain Souza MD [address] [place] [address] [facility] Start: 06-06-2024 Influenza vaccination Influenza Vacc ine (#1) [facility] Comment on above: Postponed from 03/09 (Patient Refused) Start: 05-27-2024 End: 05-27-2024 Patient encounter procedure 05/27/2024 9:50 AM EST Office Visit [facility] [address] [place] [address] Rain Souza MD [address] [place] [address] [facility] Start: 05-17-2024 Hemoglobin A1c measurement Diabetes: Hemoglobin A1C [facility] Start: 05-15-2024 End: 05-15-2024 Chart abstracting 05/15/2024 Abstract [facility] [address] [place] [address] Rain Souza MD [address] [place] [address] [facility] Start: 05-15-2024 End: 05-15-2024 Patient encounter procedure 05/15/2024 11:20 AM EST Office Visit [facility] [address] [place] [address] Rain Souza MD [address] [place] [address] [facility] Start: 04-17-2024 End: 04-17-2024 Patient encounter procedure 04/17/2024 3:40 PM EDT Office Visit [facility] [address] [place] [address] Mckayla Blas NP [address] [place] [address] [facility] Start: 04-14-2024 End: 04-14-2024 Patient encounter procedure 04/14/2024 11:00 AM EDT Office Visit [facility] [address] [place] [address] Mckayla Blas, CHILDHOOD TEACHER [address] [place] [phone] Arrived [facility] Comment on above: Arrived Start: 03-09-2024 Influenza vaccination Influenza Vacc ine (#1) [facility] Start: 02-19-2024 Hemoglobin A1c measurement Diabetes: Hemoglobin A1C [facility] Start: 11-24-2023 Urine screening for protein Diabetes: Urine Protein Screening [facility] Start: 11-23-2023 Screening for malignant neoplasm of breast Mammogram [facility] Start: 10-15-2023 End: 10-15-2023 Patient encounter procedure 10/15/2023 4:30 PM EDT Office Visit [facility] [address] [place] [address] Mckayla Blas, SILVANO [address] [place] [phone] [facility] Start: 08-09-2023 Hemoglobin A1c measurement Diabetes: Hemoglobin A1C [facility] Start: 05-27-2021 Glaucoma screening Diabetes: R etinopathy Screening [facility] Start: 03-09-2020 Influenza vaccination Flu vacc ine (Season Ended) [place] Start: 10-07-2018 Screening for malignant neoplasm of cervix [facility] Start: 2010 Lipid panel Lipid screen [place], [place] Start: 2000 Screening for malignant neoplasm of cervix HPV/Cotest [facility] Start: 1991 Screening for malignant neoplasm of cervix Cervical cancer screen [place] Start: 1989 DTaP/Tdap/Td vaccine (1 - Tdap) DTaP/Tdap/Td vaccine (1 - Tdap) [place] Start: 1985 HIV screening HIV screen Shantelle Alvarado h- [place], [place] Start: 1970 Medicare Annual Wellness (AWV) Medicare Annual Wellness (AWV) [facility] Start: 1970 Screening for malignant neoplasm of colon [facility] BLOOD CULTURE 1 BLOOD CULTURE 1 Lab Routine 12/04/2024 4:44 PM EDT [facility] BLOOD CULTURE 2 BLOOD CULTURE 2 Lab Routine 12/04/2024 5:28 PM EDT [facility] Immunizations Immunization Date Immunization Notes Care Provider [facility] 05-18-2023 influenza, injectabl e, quadrivalent, contains preservative Mckayla Blas CHILDHOOD TEACHER Work Phone: [facility] 05-18-2023 influenza virus vacc ine, unspecified formulation Rain Souza MD Work Phone: [facility] 07-19-2021 SARS-CoV-2 (COVID-19 ) mRNA BNT-162b2 vax Oculo Therapy [facility] 10-28-2020 SARS-CoV-2 (COVID-19 ) mRNA BNT-162b2 vax Oculo Therapy [facility] 10-08-2020 SARS-CoV-2 (COVID-19 ) mRNA BNT-162b2 vax Oculo Therapy [facility] 04-16-2017 influenza virus vacc ine, H5N1, A/[place]/ (national stockpile) Mckayla Blas CHILDHOOD TEACHER Work Phone: [facility] 04-16-2017 influenza virus vacc ine, unspecified formulation Rain Souza MD Work Phone: [facility] 04-16-2017 influenza, unspecifi ed formulation Elbert ARAUZ [facility] 04-16-2017 pneumococcal polysaccharide vaccine, 23 valent Rain Souza MD Work Phone: [facility] 05-10-2016 influenza virus vacc ine, H5N1, A/[place]/ (national stockpile) Mckayla Blas CHILDHOOD TEACHER Work Phone: [facility] 05-10-2016 influenza virus vacc ine, unspecified formulation Rain Souza MD Work Phone: [facility] 05-10-2016 influenza, unspecifi ed formulation Elbert ARAUZ [facility] 05-02-2013 influenza virus vacc ine, whole virus Rain Souza MD Work Phone: [facility] 05-02-2013 influenza, injectabl e, quadrivalent, contains preservative Mckayla Blas CHILDHOOD TEACHER Work Phone: [facility] 05-02-2013 influenza, whole Elbert BARBARA ERS [facility] 01-29-1998 measles, mumps and rubella virus vaccine Rain Souza MD Work Phone: [facility] Payers Date Payer Category Payer Unknown [id number] 2023 Medicare (Managed Care) 1.2. [id number] 2023 Private Health Insurance [id number] 2023 Medicare [id number] 2018 Medicaid MEDICAID [facility] [id number] 2018-Present [phone] [place] [id number] Medicaid [id number] 2013 Medicare [id number] 1970 Unknown [id number] 2.16.840.1.255190.3.579.2.6 47 1970 Unknown [id number] 2.16.840.1.536288.3.579.2.5 93 1970 Unknown [id number] 2.16.840.1.884148.3.579.2.5 93 1970 Unknown [id number] 2.16.840.1.898178.3.579.2.5 93 1970 Unknown [id number] 2.16.840.1.895071.3.579.2.5 93 1970 Unknown [id number] 2.16.840.1.605105.3.579.2.5 93 1970 Unknown [id number] 2.16.840.1.280121.3.579.2.5 93 1970 Unknown [id number] 2.16.840.1.365139.3.579.2.5 93 1970 Unknown [id number] 2.16.840.1.800766.3.579.2.5 93 1970 Unknown [id number] 2.16.840.1.018150.3.579.2.5 93 1970 Unknown [id number] 2.16.840.1.720118.3.579.2.5 93 1970 Unknown [id number] 2.16.840.1.752261.3.579.2.5 93 1970 Unknown [id number] 2.16.840.1.920289.3.579.2.5 93 1970 Unknown [id number] 2.16.840.1.723845.3.579.2.5 93 1970 Unknown [id number] 2.16.840.1.602498.3.579.2.5 93 1970 Unknown [id number] 2.16.840.1.281872.3.579.2.5 93 1970 Unknown [id number] 2.16.840.1.032901.3.579.2.5 93 1970 Unknown [id number] 2.16.840.1.283004.3.579.2.5 93 1970 Unknown [id number] 2.16.840.1.839631.3.579.2.5 93 1970 Unknown [id number] 2.16.840.1.837756.3.579.2.5 93 1970 Unknown [id number] 2.16.840.1.732841.3.579.2.5 93 1970 Unknown [id number] 2.16.840.1.999007.3.579.2.5 93 1970 Unknown [id number] 2.16.840.1.081560.3.579.2.5 93 1970 Unknown [id number] 2.16.840.1.303647.3.579.2.7 27 1970 Unknown [id number] 2.16.840.1.577178.3.579.2.7 27 1970 Unknown [id number] 2.16.840.1.505726.3.579.2.1 259 1970 Unknown [id number] 2.16.840.1.892876.3.579.2.1 259 1970 Unknown [id number] 2.16.840.1.498220.3.579.2.1 259 1970 Unknown [id number] 2.16.840.1.407164.3.579.2.1 259 1970 Unknown [id number] 2.16.840.1.826051.3.579.2.1 259 1970 Unknown [id number] 2.16.840.1.699593.3.579.2.1 259 1970 Unknown [id number] 2.16.840.1.446734.3.579.2.1 259 1970 Unknown [id number] 2.16.840.1.374951.3.579.2.1 259 1970 Unknown [id number] 2.16.840.1.398288.3.579.2.1 259 1970 Unknown [id number] 2.16.840.1.251526.3.579.2.1 96 1959 Medicaid [id number] 1959 Private Health Insurance [id number] 1959 Unknown [id number] 2.16.840.1.347142.19 Social History Date Type Detail Facility Start: 02-17-2014 End: 01-29-2025 Tobacco smoking status NHIS Current every day smoker [place] Start: 02-17-1994 History of tobacco use Cigarette Smo ker [place] Start: 02-17-2014 End: 08-26-2024 Cigarettes smoked current (pack per day) - Reported [place] Start: 02-17-2014 Alcohol intake Current drinke r of alcohol (finding) [place] Start: 02-17-2014 Alcohol Comment Rare [facility] [place], [place] Start: 1970 Sex Assigned At Not on file [place] Exposure to SARS-CoV -2 (event) Unable to assess [place] Start: 02-06-2022 Tobacco smoking status Smoker (findi ng) [facility] Start: 07-10-2023 End: 08-26-2024 Sex Assigned At Female [facility] Start: 11-15-2022 End: 06-11-2024 Tobacco smoking status Heavy tobacco smoker (finding) [facility] Start: 07-10-2023 End: 01-29-2025 Tobacco use and exposure Smokeless tobacco non-user [facility] Start: 07-10-2023 End: 01-29-2025 Alcohol intake Lifetime non-drinker (finding) [facility] Within the last year , have you been afraid of your partner or ex-partner? No [facility] Do you belong to any clubs or organizations such as buddhism groups, unions, fraternal [...] Equipment Origin al Text Equipment Identifier Dates [id number] Start: 01-18-2024 USE TO TEST BLOO D SUGAR 4 TIMES DAILY [id number] Start: 07-07-2024 Functional Status Date Assessment Result Facility 01-26-2025 Patient Health Quest ionnaire 2 item (PHQ-2) [Reported] [facility] 01-26-2025 Trouble falling or s taying asleep, or sleeping too much Not at all 01/26/2025 4:13 PM EDT Mychart, Generic Not at all [facility] 01-26-2025 Feeling tired or hav ing little energy Not at all 01/26/2025 4:13 PM EDT Mychart, Generic Not at all [facility] 01-26-2025 Poor appetite or overeating Not at all 01/26/2025 4:13 PM EDT Mychart, Generic Not at all [facility] 01-26-2025 Feeling bad about yourself-or that you are a failure or have let yourself or your family down Not at all 01/26/2025 4:13 PM EDT Mychart, Generic Not at all [facility] 01-26-2025 Trouble concentratin g on things, such as reading the newspaper or watching television Not at all 01/26/2025 4:13 PM EDT Mychart, Generic Not at all [facility] 01-26-2025 Moving or speaking s o slowly that other people could have noticed. Or the opposite - being so fidgety or restless that you have been moving around a lot more than usual Not at all 01/26/2025 4:13 PM EDT Mychart, Generic Not at all [facility] 01-26-2025 Thoughts that you wo uld be better off , or of hurting yourself in some way Not at all 01/26/2025 4:13 PM EDT Mychart, Generic Not at all [facility] 06-11-2024 Functional Status N/A [facility] 11-15-2022 Functional Status N/A [facility] 02-06-2022 Functional Status N/A [facility] Clinical Notes 01-19-2022 to 02-04-2025 Rain Souza [...] Follow-up as planned in 6 months. Thanks! [facility] 01-29-2025 History of Present illness Narrative Images from the original note were not included. Mitzi Maicas is a 54 y.o. female No ref. [...] 25 mg, Oral, 2 times daily HYDROcodone-acetaminophen (Edson) 5-325 MG tablet 1 tablet, 3 times [...] 09/17/2023 Angiomyolipoma Anxiety and depression 07/10/2023 Asthma ([facility]) 07/10/2023 Body mass index (BMI) 50.0-59.9, adult [place] Cellulitis of left lower extremity Cervical cancer ([facility]) 09/17/2023 Chronic pain of both knees 09/17/2023 COPD (chronic obstructive pulmonary disease) ([facility]) 07/10/2023 COPD exacerbation ([facility]) 09/17/2023 Decreased functional mobility 09/17/2023 Diabetic neuropathy ([facility]) 07/10/2023 Dietary counseling and surveillance Edema 07/10/2023 Elevated sed rate Elevated WBC count Essential (primary) hypertension GERD (gastroesophageal reflux disease) 09/17/2023 Hyperlipidemia 09/17/2023 Hypertension 07/10/2023 Insomnia 09/17/2023 penitentiary (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 ([facility]) Lower extremity edema 09/17/2023 Mixed hyperlipidemia Morbid (severe) obesity due to excess calories ([facility] Obstructive sleep apnea 07/10/2023 PAD (peripheral artery disease) 09/17/2023 Pancreatitis ([facility]) 09/17/2023 Pneumonia 09/17/2023 Proteinuria, unspecified Pulmonary hypertension ([facility]) 09/17/2023 Radiculopathy, lumbar region 09/17/2023 Tobacco user 09/17/2023 Type 2 diabetes mellitus with complication, with long-term current use of insulin (HCC) 07/10/2023 Unilateral primary osteoarthritis, right hip 09/17/2023 [...] of 50.0 to 59.9 in adult ([facility] Diet and exercise reviewed with the patient Follow up in about 4 months (around 06/01/2025). 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 Associated Problem(s): COPD (chronic [...] 25 mg, Oral, 2 times daily HYDROcodone-acetaminophen (Edson) 5-325 MG tablet 1 tablet, 3 times [...] 09/17/2023 Angiomyolipoma Anxiety and depression 07/10/2023 Asthma ([facility]) 07/10/2023 Body mass index (BMI) 50.0-59.9, adult ([facility] Cellulitis of left lower extremity Cervical cancer ([facility]) 09/17/2023 Chronic pain of both knees 09/17/2023 COPD (chronic obstructive pulmonary disease) ([facility]) 07/10/2023 COPD exacerbation ([facility]) 09/17/2023 Decreased functional mobility 09/17/2023 Diabetic neuropathy ([facility]) 07/10/2023 Dietary counseling and surveillance Edema 07/10/2023 Elevated sed rate Elevated WBC count Essential (primary) hypertension GERD (gastroesophageal reflux disease) 09/17/2023 Hyperlipidemia 09/17/2023 Hypertension 07/10/2023 Insomnia 09/17/2023 penitentiary (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 ([facility]) Lower extremity edema 09/17/2023 Mixed hyperlipidemia Morbid (severe) obesity due to excess calories ([facility] Obstructive sleep apnea 07/10/2023 PAD (peripheral artery disease) 09/17/2023 Pancreatitis ([facility]) 09/17/2023 Pneumonia 09/17/2023 Proteinuria, unspecified Pulmonary hypertension ([facility]) 09/17/2023 Radiculopathy, lumbar region 09/17/2023 Tobacco user 09/17/2023 Type 2 diabetes mellitus with complication, with long-term current use of insulin ([facility]) 07/10/2023 Unilateral primary osteoarthritis, right hip 09/17/2023 [...] List Items Addressed This Visit Diabetic neuropathy ([facility]) Continue with cintia hudson mgmt is prescribing OARRS reviewed Fu in 3 months Goal: tighter glucose control, this has been improving, latest A1c is 7.4%!!! 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 Hypertension Please check blood [...] long-term current use of insulin ([facility]) Check blood sugars daily, notify if <70 [...] MG tablet Pulmonary hypertension (HCC) Has seen [facility] Cardiology Hyperlipidemia On statin therapy Check [...] (severe) obesity due to excess calories [place] Discussed with patient their [...] Associated Problem(s): Pulmonary hypertension (HCC) Has seen [facility] Cardiology Associated Problem(s): Hypertension Please check [...] yearly basis documented in this encounter [facility] 01-26-2025 Instructions Mckayla Blas NP - 01/26/2025 6:00 PM EDT Please call the [facility] to schedule your mammogram: [phone]- ext [phone] documented in this encounter [facility] 01-06-2025 Note Cardiovascular Medic [facility] SUBJECTIVE Chief Complaint Patient presents with Congestive Heart Failure Hypertension Hyperlipidemia Mitzi Macias is a 54 y.o. female here for follow-up. PMHx: HFpEF, HTN, HLD, DM, longstanding heavy smoker, COPD, DANIEL, morbid obesity HPI 01/06/2025 Since last seen she was admitted to [facility] for AMS on 12/05/2024. She [...] Bilateral lower extremity edema BMI 50.0-59.9, adult ([facility]) Candidiasis of breast Cardiomegaly Cervical cancer ([facility]) Chronic pain of both knees Closed fracture of upper end of humerus Acute respiratory distress syndrome ([facility]) Decreased functional mobility Diabetic neuropathy ([facility]) Easy bruising GERD (gastroesophageal reflux disease) Gout [...] complication, with long-term current use of insulin ([facility]) Unilateral primary osteoarthritis, right hip Vaginal yeast infection Venous insufficiency Bad odor of urine Critical limb ischemia of right lower extremity ([facility]) Hyperpigmentation of skin 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 2 diabetes mellitus ([facility]) Myelolipoma of adrenal gland Venous ulcer of right leg ([facility]) Chronic diastolic heart failure ([facility]) Antibiotic-induced yeast infection Cellulitis of left lower extremity Cigarette nicotine dependence without complication Fever 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 ([facility]) penitentiary current use of inhaled steroid Vitamin D deficiency, unspecified Vitamin deficiency Past Medical History: Diagnosis Date COPD (chronic obstructive pulmonary disease) ([facility]) Diabetes mellitus ([facility]) Hyperlipidemia Hypertension Sleep apnea Family History Problem [...] by mouth at bedtime., Disp: , Rfl: Yenyi Aerosphere 160-9-4.8 mcg/actuation HFA aerosol inhaler, INHALE [...] , Rfl: ergocalciferol (Vitamin D-2) 1.25 MG (02448 Units) capsule, Take 1.25 mg by mouth., [...] and at bedtime., Disp: , Rfl: HYDROcodone-acetaminophen (Edson) 5-325 mg tablet, TAKE 1 TABLET BY MOUTH THREE TIMES A DAY NEEDED FOR PAIN MUST LAST 30 DAYS, Disp: , Rfl: insulin aspart (NovoLOG) 100 unit/mL (3 mL) injection pen, Novolog Flexpen U-100 Insulin aspart 100 unit/mL (3 mL) subcutaneous, Disp: , Rfl: insulin glargine (Lantus Solostar U-100 Insulin) 100 unit/mL (3 mL) injection pen (more content not included)... [facility] 01-06-2025 Note Patient is here toda y [...] weight gain. Cardiovascular: Positive for leg swelling. [facility] 12-09-2024 History of Present illness Narrative Associated [...] bad light. She was ultimately taken to [facility] ER, no tox screen was [...] 25 mg, Oral, 2 times daily HYDROcodone-acetaminophen (Edson) 5-325 MG tablet 1 tablet, 3 times [...] CT Albuminuria 09/17/2023 Angiomyolipoma Anxiety and depression ([facility]) 07/10/2023 Asthma 07/10/2023 Body mass index (BMI) 50.0-59.9, adult ([facility]) Cellulitis of left lower extremity Cervical cancer ([facility]) 09/17/2023 Chronic pain of both knees 09/17/2023 COPD (chronic obstructive pulmonary disease) ([facility]) 07/10/2023 COPD exacerbation ([facility]) 09/17/2023 Decreased functional mobility 09/17/2023 Diabetic neuropathy ([facility]) 07/10/2023 Dietary counseling and surveillance Edema 07/10/2023 Elevated sed rate Elevated WBC count Essential (primary) hypertension ([facility]) GERD (gastroesophageal reflux disease) 09/17/2023 Hyperlipidemia ([facility]) 09/17/2023 Hypertension ([facility]) 07/10/2023 Insomnia 09/17/2023 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 ([facility]) Lower extremity edema 09/17/2023 Mixed hyperlipidemia ([facility]) Morbid (severe) obesity due to excess calories ([facility]) Obstructive sleep apnea 07/10/2023 PAD (peripheral artery disease) ([facility]) 09/17/2023 Pancreatitis 09/17/2023 Pneumonia 09/17/2023 Proteinuria, unspecified Pulmonary hypertension ([facility]) 09/17/2023 Radiculopathy, lumbar region 09/17/2023 Tobacco user 09/17/2023 Type 2 diabetes mellitus with complication, with long-term current use of insulin ([facility]) 07/10/2023 Unilateral primary osteoarthritis, right hip 09/17/2023 [...] Problem List Items Addressed This Visit Hypertension ([facility]) Please check blood pressure daily and record DASH diet Limit caffeine Take medication as directed Contact office if chest pain, pressure, dizziness, shortness of breath, swelling legs Recommend slow position changes Current meds: hydralazine, lisinopril, Type 2 diabetes mellitus with complication, with long-term current use of insulin ([facility]) Check blood sugars daily, notify if <70 [...] secondary to her steroids Anxiety and depression (CMS/HCC) Current meds: elavil, duloxtine, COPD exacerbation (CMS/HCC) Recent ER visit for unresponsiveness , found to have fever and elevated WBC Sent home with steroids and atb Breathing is better and she feels back to her normal baseline Does have home O2, she is not wearing this today Pulmonary hypertension (CMS/HCC) Has seen [facility] Cardiology Morbid (severe) obesity due to excess calories (CMS/[facility]) Discussed with patient their BMI (actual, verses [...] Associated Problem(s): Pulmonary hypertension (CMS/HCC) Has seen [facility] Cardiology Associated Problem(s): Hypertension (CMS/HCC) Please [...] this today documented in this encounter [facility] 12-09-2024 Instructions Mckayla Blas NP - 12/09/2024 10:00 AM EDT Keep appt with wound care today Keep fu with me, sooner if needed documented in this encounter [facility] 10-27-2024 History of Present illness Narrative Associated [...] 25 mg, Oral, 2 times daily HYDROcodone-acetaminophen (Edson) 5-325 MG tablet 1 tablet, 3 times [...] Albuminuria 09/17/2023 Angiomyolipoma Anxiety and depression ([facility]) 07/10/2023 Asthma 07/10/2023 Body mass index (BMI) 50.0-59.9, adult ([facility]) Cellulitis of left lower extremity Cervical cancer ([facility]) 09/17/2023 Chronic pain of both knees 09/17/2023 COPD (chronic obstructive pulmonary disease) ([facility]) 07/10/2023 COPD exacerbation ([facility]) 09/17/2023 Decreased functional mobility 09/17/2023 Diabetic neuropathy ([facility]) 07/10/2023 Dietary counseling and surveillance Edema 07/10/2023 Elevated sed rate Elevated WBC count Essential (primary) hypertension ([facility]) GERD (gastroesophageal reflux disease) 09/17/2023 Hyperlipidemia ([facility]) 09/17/2023 Hypertension ([facility]) 07/10/2023 Insomnia 09/17/2023 penitentiary (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 ([facility]) Lower extremity edema 09/17/2023 Mixed hyperlipidemia ([facility]) Morbid (severe) obesity due to excess calories ([facility]) Obstructive sleep apnea 07/10/2023 PAD (peripheral artery disease) ([facility]) 09/17/2023 Pancreatitis 09/17/2023 Pneumonia 09/17/2023 Proteinuria, unspecified Pulmonary hypertension ([facility]) 09/17/2023 Radiculopathy, lumbar region 09/17/2023 Tobacco user 09/17/2023 Type 2 diabetes mellitus with complication, with long-term current use of insulin ([facility]) 07/10/2023 Unilateral primary osteoarthritis, right hip 09/17/2023 [...] Diabetic neuropathy (CMS/HCC) - Primary Continue with lyrica, pain mgmt is prescribing [...] complication, with long-term current use of insulin ([facility]) Check blood sugars daily, notify if <70 [...] follow with Libby On asa, tila, statin, farxiga mounjaro Most recent A1c is 7.2% on 10/08/2024 Relevant Medications aspirin 81 MG chewable tablet Anxiety and depression (CMS/[facility]) Current meds: elavil, duloxtine, Relevant Medications DULoxetine (Cymbalta) [address] capsule Bilateral lower extremity edema Limit sodium , elevate legs, furosemide Relevant Medications furosemide (Lasix) 20 MG tablet potassium chloride ER (Micro-K) 10 MEQ ER capsule furosemide (Lasix) 40 MG tablet Insomnia Relevant Medications amitriptyline (Elavil) 25 MG tablet PAD (peripheral artery disease) ([facility]) Asa, statin Quit smoking BP and DM [...] MG tablet Venous ulcer of right leg ([facility]) Continue with wound care and management of wound, currently they are using dakins Wound is improving Morbid (severe) obesity due to excess calories ([facility]) Discussed with patient their BMI (actual, verses [...] mounjaro for DM Chronic diastolic heart failure ([facility]) Current meds; asa, farxiga, lasix, hydralazine, lisinopril, Follows with cardilogy Reviewed 08/02 notes Cigarette nicotine dependence without complication Is currently using chantix, and is doing well, less desire, smoking less Vitamin D deficiency, unspecified Relevant Medications ergocalciferol (Vitamin D2) 1.25 MG (71874 UT) capsule Gastro-esophageal reflux disease without esophagitis Relevant Medications omeprazole (PriLOSEC) [address] capsule Other Visit Diagnoses Type 2 diabetes mellitus with unspecified complications Relevant Medications dapagliflozin (Farxiga) 10 MG Associated Problem(s): Cigarette nicotine dependence without complication Is currently using chantix, and is doing well, less desire, smoking less Associated Problem(s): Anxiety and depression ([facility]) Current meds: elavil, duloxtine, Associated Problem(s): Type 2 diabetes mellitus with complication, with long-term current use of insulin ([facility]) Check blood sugars daily, notify if <70 [...] is 7.4%!!! documented in this encounter [facility] 10-27-2024 Instructions Mckayla Blas NP - 10/27/2024 2:00 PM EDT No dose changes in meds You will be due for mammogram I will send order to [facility], they should call you to schedule If no call, please call [phone] documented in this encounter [facility] 10-08-2024 History of Present illness Narrative Images [...] or chew. ergocalciferol (Vitamin D2) 1.25 MG (54778 UT) capsule TAKE 1 CAPSULE BY MOUTH [...] 25 mg, Oral, 2 times daily HYDROcodone-acetaminophen (Edson) 5-325 MG tablet 1 tablet, 3 times [...] CT Albuminuria 09/17/2023 Angiomyolipoma Anxiety and depression ([facility]) 07/10/2023 Asthma ([facility]) 07/10/2023 Body mass index (BMI) 50.0-59.9, adult ([facility]) Cellulitis of left lower extremity Cervical cancer ([facility]) 09/17/2023 Chronic pain of both knees 09/17/2023 COPD (chronic obstructive pulmonary disease) ([facility] 07/10/2023 COPD exacerbation ([facility]) 09/17/2023 Decreased functional mobility 09/17/2023 Diabetic neuropathy ([facility]) 07/10/2023 Dietary counseling and surveillance Edema 07/10/2023 Elevated sed rate Elevated WBC count Essential (primary) hypertension ([facility]) GERD (gastroesophageal reflux disease) 09/17/2023 Hyperlipidemia ([facility]) 09/17/2023 Hypertension ([facility]) 07/10/2023 Insomnia 09/17/2023 penitentiary (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 ([facility]) Lower extremity edema 09/17/2023 Mixed hyperlipidemia ([facility]) Morbid (severe) obesity due to excess calories ([facility]) Obstructive sleep apnea 07/10/2023 PAD (peripheral artery disease) ([facility]) 09/17/2023 Pancreatitis 09/17/2023 Pneumonia 09/17/2023 Proteinuria, unspecified Pulmonary hypertension ([facility]) 09/17/2023 Radiculopathy, lumbar region 09/17/2023 Tobacco user 09/17/2023 Type 2 diabetes mellitus with complication, with long-term current use of insulin ([facility]) 07/10/2023 Unilateral primary osteoarthritis, right hip 09/17/2023 [...] hyperglycemia, with long-term current use of insulin ([facility]) - POCT glucose manually resulted - POCT [...] (around 02/07/2025). documented in this encounter [facility] 08-27-2024 History of Present illness Narrative Associated [...] or chew. ergocalciferol (Vitamin D2) 1.25 MG (67027 UT) capsule TAKE 1 CAPSULE BY MOUTH [...] 25 mg, Oral, 2 times daily HYDROcodone-acetaminophen (Edson) 5-325 MG tablet 1 tablet, 3 times [...] CT Albuminuria 09/17/2023 Angiomyolipoma Anxiety and depression ([facility]) 07/10/2023 Asthma ([facility]) 07/10/2023 Body mass index (BMI) 50.0-59.9, adult ([facility]) Cellulitis of left lower extremity Cervical cancer ([facility]) 09/17/2023 Chronic pain of both knees 09/17/2023 COPD (chronic obstructive pulmonary disease) ([facility]) 07/10/2023 COPD exacerbation ([facility]) 09/17/2023 Decreased functional mobility 09/17/2023 Diabetic neuropathy ([facility]) 07/10/2023 Dietary counseling and surveillance Edema 07/10/2023 Elevated sed rate Elevated WBC count Essential (primary) hypertension ([facility]) GERD (gastroesophageal reflux disease) 09/17/2023 Hyperlipidemia ([facility]) 09/17/2023 Hypertension ([facility]) 07/10/2023 Insomnia 09/17/2023 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 ([facility]) Lower extremity edema 09/17/2023 Mixed hyperlipidemia ([facility]) Morbid (severe) obesity due to excess calories ([facility]) Obstructive sleep apnea 07/10/2023 PAD (peripheral artery disease) ([facility]) 09/17/2023 Pancreatitis 09/17/2023 Pneumonia 09/17/2023 Proteinuria, unspecified Pulmonary hypertension ([facility]) 09/17/2023 Radiculopathy, lumbar region 09/17/2023 Tobacco user 09/17/2023 Type 2 diabetes mellitus with complication, with long-term current use of insulin ([facility]) 07/10/2023 Unilateral primary osteoarthritis, right hip 09/17/2023 [...] List Items Addressed This Visit Diabetic neuropathy ([facility]) Continue with cintia hudson mgmt is prescribing OARRS reviewed Fu in 3 months Goal: tighter glucose control Hypertension ([facility]) Please check blood pressure daily and record [...] complication, with long-term current use of insulin ([facility]) Check blood sugars daily, notify if <70 [...] / creatinine, urine ratio Anxiety and depression ([facility]) - Primary Current meds: elavil, duloxtine, PHQ [...] Uric acid Venous ulcer of right leg (CMS/[facility]) Continue with wound for treatment Had recent [...] due to excess calories ([facility]) Discussed with patient their BMI (actual, verses [...] lasix, hydralazine, lisinopril, Follows with cardilogy Reviewed 1/25 notes Idiopathic chronic venous hypertension of both [...] Asthma (CMS/HCC) Current meds: albuterol, duoneb, 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 [facility] 07-14-2024 History of Present illness Narrative Associated [...] or chew. ergocalciferol (Vitamin D2) 1.25 MG (96145 UT) capsule TAKE 1 CAPSULE BY MOUTH ONE TIME PER WEEK furosemide (LASIX) 40 mg, Oral, Daily furosemide (LASIX) 20 mg, Oral, Daily PRN, Take in the afternoon as needed hydrALAZINE (APRESOLINE) 25 mg, Oral, 2 times daily HYDROcodone-acetaminophen (Edson) 5-325 MG tablet 1 tablet, 3 times [...] CT Albuminuria 09/17/2023 Angiomyolipoma Anxiety and depression ([facility]) 07/10/2023 Asthma ([facility]) 07/10/2023 Body mass index (BMI) 50.0-59.9, adult ([facility]) Cellulitis of left lower extremity Cervical cancer ([facility]) 09/17/2023 Chronic pain of both knees 09/17/2023 COPD (chronic obstructive pulmonary disease) ([facility]) 07/10/2023 COPD exacerbation ([facility]) 09/17/2023 Decreased functional mobility 09/17/2023 Diabetic neuropathy ([facility]) 07/10/2023 Dietary counseling and surveillance Edema 07/10/2023 Elevated sed rate Elevated WBC count Essential (primary) hypertension ([facility]) GERD (gastroesophageal reflux disease) 09/17/2023 Hyperlipidemia ([facility]) 09/17/2023 Hypertension ([facility]) 07/10/2023 Insomnia 09/17/2023 penitentiary (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 ([facility]) Lower extremity edema 09/17/2023 Mixed hyperlipidemia ([facility]) Morbid (severe) obesity due to excess calories ([facility]) Obstructive sleep apnea 07/10/2023 PAD (peripheral artery disease) ([facility]) 09/17/2023 Pancreatitis 09/17/2023 Pneumonia 09/17/2023 Proteinuria, unspecified Pulmonary hypertension ([facility]) 09/17/2023 Radiculopathy, lumbar region 09/17/2023 Tobacco user 09/17/2023 Type 2 diabetes mellitus with complication, with long-term current use of insulin ([facility]) 07/10/2023 Unilateral primary osteoarthritis, right hip 09/17/2023 [...] List Items Addressed This Visit Diabetic neuropathy ([facility]) Continue with tristan EAST reviewed Fu in 3 months COPD (chronic obstructive pulmonary disease) ([facility]) Stable at this time, no changes in meds Encouraged smoking cessation Cont with dr Yañez Hypertension ([facility]) - Primary Please check blood pressure daily and record DASH diet Limit caffeine Take medication as directed Contact office if chest pain, pressure, dizziness, shortness of breath, swelling legs Recommend slow position changes Current meds: hydralazine, lisinopril, Type 2 diabetes mellitus with complication, with long-term current use of insulin ([facility]) Check blood sugars daily, notify if <70 [...] take over prescribing PAD (peripheral artery disease) ([facility]) Asa, statin Quit smoking BP and DM [...] 1 cm to 4 cm in diameter ([facility]) Continue with Urology Kidney stone Continue with Urology Non-seasonal allergic rhinitis Relevant Medications cetirizine (ZyrTEC) 10 MG tablet Critical limb ischemia of right lower extremity ([facility]) Saw vascular, does have narrowing in arteries in legs, and thus the wounds not healing At this point they strongly urge to quit smoking or risk limb amputation Cont asa and statin Also good blood pressure and sugar control Venous ulcer of right leg ([facility]) Encounter for smoking cessation counseling Relevant Medications nicotine (Nicoderm, Step 1) 21 MG/24HR patch Other Visit Diagnoses Type 2 diabetes mellitus with unspecified complications ([facility]) Quitting smokinppd, chantix not helped, ] Face [...] complication, with long-term current use of insulin ([facility]) Check blood sugars daily, notify if <70 [...] Associated Problem(s): COPD (chronic obstructive pulmonary disease) ([facility]) Stable at this time, no changes in meds Encouraged smoking cessation Cont with dr Yañez Associated Problem(s): Diabetic neuropathy (CMS/[facility]) Continue with tristan EAST reviewed Fu in 3 months documented in this encounter [facility] 06-11-2024 Hospital Discharge instructions Patient Education 06/11/2024 [...] require a prescription. You can also purchase [id number] medicines. Medicines may have nicotine in them [...] and encouragement. Call telephone quitlines, such as 4-751-LKGO-NOW, reach out to support groups, or work [...] provider. Document Revised: 06/16/2022 Document Reviewed: 06/16/2022 [employer] Patient Education 2023 [email or web address]. 06/11/2024 10:39:22 Dietary Guidelines to Help Prevent [...] include: ?8 oz (237 mL) of milk, jsuilid-nzxskeeaqdhk-hbjfp milk, and calcium-fortifiedfruit juice. Calcium-fortified means that [...] potatoes, and Afghan chard. ?Peanuts. ?Potato chips, filipino fries, and baked potatoes with skin on. ?Nuts and nut products. ?Chocolate. If you regularly take a diuretic medicine, make sure to eat at least 1 or 2 servings of fruits or vegetables that are high in potassium each day. These include: ?Avocado. ?Banana. ?[place], prune, carrot, or tomato juice. ?Baked potato. [...] magnesium, fish oil, or vitamin B6. Take bvci-icb-mcpmumi and prescription medicines only as told by [...] Casseroles. Pizza. Lasagna. Frozen meals. Potato chips. Armenian fries. The items listed above may not [...] provider. Document Revised: 10/05/2022 Document Reviewed: 10/05/2022 [employer] Patient Education 2023 [email or web address]. Follow Up Care 05/06/2024 08:24:56 With:REGLA PHIPPS, Elbert Joya, URL Address: [facility] [address], [place] [id number]- When: Unknown [facility] 05-27-2024 History of Present illness Narrative [...] or chew. ergocalciferol (Vitamin D2) 1.25 MG (00913 UT) capsule TAKE 1 CAPSULE BY MOUTH ONE TIME PER WEEK furosemide (LASIX) 20 mg, Oral, Daily PRN, Take in the afternoon as needed furosemide (LASIX) 40 mg, Oral, Daily Glucose Blood (ACCU-CHEK JAQUI PLUS ) 4 times daily hydrALAZINE (APRESOLINE) 25 mg, Oral, 2 times daily HYDROcodone-acetaminophen (Edson) 5-325 MG tablet 1 tablet, 3 times [...] CT Albuminuria 09/17/2023 Angiomyolipoma Anxiety and depression ([facility]) 07/10/2023 Asthma ([facility]) 07/10/2023 Body mass index (BMI) 50.0-59.9, adult ([facility]) Cellulitis of left lower extremity Cervical cancer ([facility]) 09/17/2023 Chronic pain of both knees 09/17/2023 COPD (chronic obstructive pulmonary disease) ([facility]) 07/10/2023 COPD exacerbation ([facility]) 09/17/2023 Decreased functional mobility 09/17/2023 Diabetic neuropathy ([facility]) 07/10/2023 Dietary counseling and surveillance Edema 07/10/2023 Elevated sed rate Elevated WBC count GERD (gastroesophageal reflux disease) 09/17/2023 Hyperlipidemia ([facility]) 09/17/2023 Hypertension ([facility]) 07/10/2023 Insomnia 09/17/2023 penitentiary (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 ([facility]) Lower extremity edema 09/17/2023 Morbid (severe) obesity due to excess calories ([facility]) Obstructive sleep apnea 07/10/2023 PAD (peripheral artery disease) ([facility]) 09/17/2023 Pancreatitis 09/17/2023 Pneumonia 09/17/2023 Proteinuria, unspecified Pulmonary hypertension ([facility]) 09/17/2023 Radiculopathy, lumbar region 09/17/2023 Tobacco user 09/17/2023 Type 2 diabetes mellitus with complication, with long-term current use of insulin ([facility]) 07/10/2023 Unilateral primary osteoarthritis, right hip 09/17/2023 [...] hyperglycemia, with long-term current use of insulin ([facility]) - POCT glucose manually resulted - POCT glycosylated hemoglobin (Hb A1C) docked device We will continue with Lantus 58, lispro 02/16/12 according to meal size, Mounjaro 15 mg once weekly, Farxiga 5 mg once a day Encounter for dietary consultation Vitamin D deficiency Primary hypertension ([facility]) To follow with her PCP Insulin long-term use ([facility]) Hyperlipemia, mixed ([facility]) Continue with Zocor 10 mg once daily Microalbuminuria Class 3 severe obesity due to excess calories with serious comorbidity and body mass index (BMI) of 50.0 to 59.9 in adult ([facility]) Diet and exercise reviewed with the patient Follow up in about 3 months (around 08/27/2024). documented in this encounter [facility] 04-14-2024 History of Present illness Narrative Associated [...] being taken. She does not see a billing clerk.Eye exam is not current. Hypertension This is [...] or chew. ergocalciferol (Vitamin D2) 1.25 MG (47197 UT) capsule TAKE 1 CAPSULE BY MOUTH ONE TIME PER WEEK furosemide (LASIX) 20 mg, Oral, Daily PRN, Take in the afternoon as needed furosemide (LASIX) 40 mg, Oral, Daily Glucose Blood (ACCU-CHEK JAQUI PLUS ) 4 times daily HumaLOG KWIKPEN 100 UNIT/ML injection Subcutaneous hydrALAZINE (APRESOLINE) 25 mg, Oral, 2 times daily HYDROcodone-acetaminophen (Edson) 5-325 MG tablet 1 tablet, 3 times [...] CT Albuminuria 09/17/2023 Angiomyolipoma Anxiety and depression ([facility]) 07/10/2023 Asthma ([facility]) 07/10/2023 Cellulitis of left lower extremity Cervical cancer ([facility]) 09/17/2023 Chronic pain of both knees 09/17/2023 COPD (chronic obstructive pulmonary disease) ([facility]) 07/10/2023 COPD exacerbation ([facility]) 09/17/2023 Decreased functional mobility 09/17/2023 Diabetic neuropathy ([facility]) 07/10/2023 Edema 07/10/2023 Elevated sed rate Elevated WBC count GERD (gastroesophageal reflux disease) 09/17/2023 Hyperlipidemia ([facility]) 09/17/2023 Hypertension ([facility]) 07/10/2023 Insomnia 09/17/2023 Lower extremity edema 09/17/2023 Obstructive sleep apnea 07/10/2023 PAD (peripheral artery disease) ([facility]) 09/17/2023 Pancreatitis 09/17/2023 Pneumonia 09/17/2023 Pulmonary hypertension ([facility]) 09/17/2023 Radiculopathy, lumbar region 09/17/2023 Tobacco user 09/17/2023 Type 2 diabetes mellitus with complication, with long-term current use of insulin ([facility]) 07/10/2023 Unilateral primary osteoarthritis, right hip 09/17/2023 [...] List Items Addressed This Visit Diabetic neuropathy ([facility]) Continue with tristan EAST reviewed Fu in 3 months Relevant Medications pregabalin (Lyrica) 300 MG capsule COPD (chronic obstructive pulmonary disease) ([facility]) - Primary Stable at this time, no changes in meds Encouraged smoking cessation Cont with dr Yañez Hypertension ([facility]) Stable on current meds Refill meds Relevant Medications hydrALAZINE (Apresoline) 25 MG tablet lisinopril 20 MG tablet Type 2 diabetes mellitus with complication, with long-term current use of insulin ([facility]) Check blood sugars daily, follow w Endo. [...] MCG tablet documented in this encounter [facility] 11-15-2022 Hospital Discharge instructions Patient Education 11/15/2022 [...] include: ?8 oz (237 mL) of milk, beeyedt-fqvxayaxovda-dnjlq milk, and calcium-fortifiedfruit juice. Calcium-fortified means that [...] potatoes, and Afghan chard. ?Peanuts. ?Potato chips, filipino fries, and baked potatoes with skin on. ?Nuts and nut products. ?Chocolate. If you regularly take a diuretic medicine, make sure to eat at least 1 or 2 servings of fruits or vegetables that are high in potassium each day. These include: ?Avocado. ?Banana. ?[place], prune, carrot, or tomato juice. ?Baked potato. [...] magnesium, fish oil, or vitamin B6. Take fktw-fvs-dbidkwa and prescription medicines only as told by [...] Casseroles. Pizza. Lasagna. Frozen meals. Potato chips. Armenian fries. The items listed above may not [...] provider. Document Revised: 03/06/2022 Document Reviewed: 03/06/2022 [employer] Patient Education 2022 [employer]. Follow Up Care 02/06/2022 11:44:09 With:SILVIA HOWELL, SARAH Webb, URL Address: [address] [place] [place] [address] When: Unknown [facility] 08-24-2022 Note CONSULTATION CONSULTATION DATE: 08/24/2022 [...] We maintain her on pain medication with Edson 5/325 t.i.d., diclofenac 75 mg b.i.d. Her [...] her at this point. A refill for Edson 5/325 t.i.d. and diclofenac 75 mg b.i.d. will be sent to the pharmacy. Vitamin compliance and nutrition were discussed and enforced. I did highly encourage her to use exercise bands to increase the strength in her lower extremities. We will see her in three months' time, unless otherwise indicated, and patient agrees. [facility] 05-11-2022 Note CONSULTATION CONSULTATION DATE: 05/11/2022 [...] 150. Medications include Lyrica 300 mg b.i.d., Edson 5/325 t.i.d., diclofenac 75 mg b.i.d. and [...] her medications today. We will maintain Lyrica, Edson and diclofenac at the set dose and frequency. We will follow-up in the clinic in three months' time. The patient is in agreement to this. Vitamin importance and nutrition were discussed. [facility] 04-20-2022 Note CONSULTATION CONSULTATION DATE: 04/20/2022 [...] medications include Tylenol, Lyrica 300 mg b.i.d., Edson 5/325 t.i.d., amitriptyline, diclofenac and duloxetine. Patient's [...] be followed up in the clinic. [facility] 03-08-2022 Evaluation note Encounter Date Diagnosis [...] to the DANIEL. Thrombocytopenia is unclear etiology. [facility] Other 08-15-2022 Evaluation note* Encounter Date [...] follow with Dr. Souza and Dr. Arauz. [facility] Other 08-01-2022 Hospital Discharge instructions Patient [...] fried and sweet foods. General instructions Take nedq-oaj-fkirnkj and prescription medicines only as told by [...] 04/21/2010 Document Revised: 10/16/2019 Document Reviewed: 07/11/2018 [employer] Patient Education 2020 [employer]. Follow Up Care 01/05/2022 12:02:03 With:REGLA PHIPPS, Elbert Joya, URL Address: [facility] [address], [place] [address] [phone] When:Within 6 Month(s) Comments:w/ repeat CT A/P [facility] 07-14-2022 NoteCONSULTATION PROCEDURE DATE: 01/19/2022 PRE [...] pattern and the patient tolerated it well. [facility] Signed and Approved by: GIL [...] today. Medications include Lyrica 300 mg b.i.d., Edson 5/325 t.i.d., diclofenac 75 mg b.i.d. and [...] in three months' time unless otherwise indicated. [facility] Signed and Approved by: GIL VALENZUELA . [facility]/27/2022 [facility] Appointment Date:08/14/2022 09:15:00 AM Scheduled Provider:Elbert ARAUZ MD Location:[place] Appointment Type:URO Office Visit [facility] evaluation + Plan note Future Appointments Appointment Date:04/22/2024 10:00:00 AM Scheduled Provider:SARAH VEGA PA-C Location:[place] Appointment Type:URO Office Visit [facility] evalsxyaer note* Diagnosis Type 2 diabetes mellitus with unspecified complications ([facility]) Edema, unspecified Edema [facility] Diagnosis Vaginal yeast infection- Primary Candidiasis of vulva and vagina documented [facility] Diagnosis Primary hypertension ([facility])- Primary Unspecified essential hypertension Insomnia Insomnia, unspecified Type 2 diabetes mellitus with complication, with long-term current use of insulin ([facility]) Non-seasonal allergic rhinitis, unspecified trigger Type 2 diabetes mellitus with unspecified complications (CMS/HCC) Anxiety and depression (CMS/HCC) Gastro-esophageal reflux disease without esophagitis Edema, unspecified Edema Diabetic polyneuropathy associated with type 2 diabetes mellitus ([facility]) Chronic obstructive pulmonary disease, unspecified (CMS/HCC) Pulmonary emphysema, unspecified emphysema type (CMS/HCC) Bilateral lower extremity edema Tobacco user Tobacco use disorder Hyperpigmentation of skin Other dyschromia documented in this encounter [facility]* Diagnosis Obstructive sleep apnea- Primary Obstructive sleep apnea (adult) (pediatric) Pulmonary emphysema, unspecified emphysema type (CMS/HCC) Primary hypertension ([facility]) Unspecified essential hypertension Type 2 diabetes mellitus with complication, with long-term current use of insulin ([facility]) Anxiety and depression ([facility]) Bilateral lower extremity edema Pulmonary emphysema, unspecified emphysema type ([facility])- Primary Primary hypertension ([facility]) Unspecified essential hypertension Class 3 severe obesity with serious comorbidity and body mass index (BMI) of 50.0 to 59.9 in adult, unspecified obesity type ([facility]) Obstructive sleep apnea Obstructive sleep apnea (adult) (pediatric) Pulmonary hypertension ([facility]) Other chronic pulmonary heart diseases Tobacco user Tobacco use disorder Cardiomegaly Primary hypertension ([facility])- Primary Unspecified essential hypertension Gastroesophageal reflux disease, unspecified whether esophagitis present Type 2 diabetes mellitus with complication, with long-term current use of insulin ([facility]) Mixed hyperlipidemia ([facility]) Mixed hyperlipidemia Tobacco user Tobacco use disorder Encounter for screening mammogram for malignant neoplasm of breast Chronic obstructive pulmonary disease, unspecified ([facility]) Other specified chronic obstructive pulmonary disease ([facility] Anxiety and depression ([facility]) Edema, unspecified Edema Hyperlipidemia, unspecified ([facility]) Diabetic polyneuropathy associated with type 2 diabetes mellitus ([facility]) Gout, unspecified cause, unspecified chronicity, unspecified site Non-seasonal allergic rhinitis, unspecified trigger Bilateral lower extremity edema COPD exacerbation ([facility]) Obstructive chronic bronchitis with exacerbation Pulmonary emphysema, unspecified emphysema type ([facility]) Venous insufficiency Unspecified venous (peripheral) insufficiency Candidiasis of breast COPD exacerbation ([facility])- Primary Obstructive chronic bronchitis with exacerbation Pulmonary hypertension ([facility]) Other chronic pulmonary heart diseases Class 3 severe obesity with serious comorbidity and body mass index (BMI) of 50.0 to 59.9 in adult, unspecified obesity type ([facility]) Encounter for subsequent annual wellness visit (AWV) in Medicare patient- Primary Type 2 diabetes mellitus with unspecified complications ([facility]) Pulmonary emphysema, unspecified emphysema type ([facility] Moderate persistent asthma without complication ([facility]) Primary hypertension ([facility]) Unspecified essential hypertension Type 2 diabetes mellitus with complication, with long-term current use of insulin ([facility]) Class 3 severe obesity with serious comorbidity and body mass index (BMI) of 50.0 to 59.9 in adult, unspecified obesity type ([facility]) Tobacco user Tobacco use disorder Other headache syndrome Malignant neoplasm of cervix uteri, unspecified ([facility]) Other specified disorders of adrenal gland ([facility]) Major depressive disorder, single episode, mild ([facility]) ([facility]) Major depressive disorder, single episode, mild 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 exposed ([facility]) Chronic respiratory failure, unspecified whether with hypoxia or hypercapnia ([facility]) Disorder of adrenal gland, unspecified ([facility]) Non-pressure chronic ulcer of other part of right lower leg limited to breakdown of skin ([facility]) Non-recurrent acute suppurative otitis media of left ear without spontaneous rupture of tympanic membrane Primary hypertension ([facility])- Primary Unspecified essential hypertension Insomnia Insomnia, unspecified Type 2 diabetes mellitus with complication, with long-term current use of insulin ([facility]) Non-seasonal allergic rhinitis, unspecified trigger Type 2 diabetes mellitus with unspecified complications ([facility]) Anxiety and depression ([facility]) Gastro-esophageal reflux disease without esophagitis Edema, unspecified Edema Diabetic polyneuropathy associated with type 2 diabetes mellitus ([facility]) Chronic obstructive pulmonary disease, unspecified ([facility]) Pulmonary emphysema, unspecified emphysema type ([facility]) Bilateral lower extremity edema Tobacco user Tobacco use disorder Hyperpigmentation of skin Other dyschromia Type 2 diabetes mellitus with hyperglycemia, with long-term current use of insulin ([facility])- Primary Encounter for dietary consultation Vitamin D deficiency Primary hypertension ([facility]) Unspecified essential hypertension Insulin long-term use ([facility]) Encounter for long-term (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 Hyperlipemia, mixed ([facility]) Mixed hyperlipidemia Microalbuminuria Proteinuria Class 3 severe obesity due to excess calories with serious comorbidity and body mass index (BMI) of 50.0 to 59.9 in adult ([facility]) documented in this encounter [facility]* Diagnosis Hyperlipidemia, unspecified ([facility]) Bilateral lower extremity edema documented in this encounter [facility]* Diagnosis Vitamin D deficiency, unspecified documented in this encounter [facility]* Diagnosis Obstructive sleep apnea- Primary Obstructive sleep apnea (adult) (pediatric) Pulmonary emphysema, unspecified emphysema type ([facility]) Primary hypertension ([facility]) Unspecified essential hypertension Type 2 diabetes mellitus with complication, with long-term current use of insulin ([facility]) Anxiety and depression ([facility]) Bilateral lower extremity edema Pulmonary emphysema, unspecified emphysema type ([facility])- Primary Primary hypertension ([facility]) Unspecified essential hypertension Class 3 severe obesity with serious comorbidity and body mass index (BMI) of 50.0 to 59.9 in adult, unspecified obesity type ([facility]) Obstructive sleep apnea Obstructive sleep apnea (adult) (pediatric) Pulmonary hypertension ([facility] Other chronic pulmonary heart diseases Tobacco user Tobacco use disorder Cardiomegaly Primary hypertension ([facility])- Primary Unspecified essential hypertension Gastroesophageal reflux disease, unspecified whether esophagitis present Type 2 diabetes mellitus with complication, with long-term current use of insulin ([facility]) Mixed hyperlipidemia ([facility]) Mixed hyperlipidemia Tobacco user Tobacco use disorder Encounter for screening mammogram for malignant neoplasm of breast Chronic obstructive pulmonary disease, unspecified ([facility]) Other specified chronic obstructive pulmonary disease ([facility] Anxiety and depression ([facility]) Edema, unspecified Edema Hyperlipidemia, unspecified ([facility]) Diabetic polyneuropathy associated with type 2 diabetes mellitus ([facility]) Gout, unspecified cause, unspecified chronicity, unspecified site Non-seasonal allergic rhinitis, unspecified trigger Bilateral lower extremity edema COPD exacerbation ([facility]) Obstructive chronic bronchitis with exacerbation Pulmonary emphysema, unspecified emphysema type ([facility]) Venous insufficiency Unspecified venous (peripheral) insufficiency Candidiasis of breast COPD exacerbation ([facility])- Primary Obstructive chronic bronchitis with exacerbation Pulmonary hypertension ([facility]) Other chronic pulmonary heart diseases Class 3 severe obesity with serious comorbidity and body mass index (BMI) of 50.0 to 59.9 in adult, unspecified obesity type ([facility]) Encounter for subsequent annual wellness visit (AWV) in Medicare patient- Primary Type 2 diabetes mellitus with unspecified complications ([facility]) Pulmonary emphysema, unspecified emphysema type ([facility] Moderate persistent asthma without complication ([facility]) Primary hypertension ([facility]) Unspecified essential hypertension Type 2 diabetes mellitus with complication, with long-term current use of insulin ([facility]) Class 3 severe obesity with serious comorbidity and body mass index (BMI) of 50.0 to 59.9 in adult, unspecified obesity type (CMS/HCC) Tobacco user Tobacco use disorder Other headache syndrome Malignant neoplasm of cervix uteri, unspecified ([facility]) Other specified disorders of adrenal gland (CMS/HCC) Major depressive disorder, single episode, mild (HCC) ([facility]) Major depressive disorder, single episode, mild 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 exposed (CMS/[facility]) Chronic respiratory failure, unspecified whether with hypoxia or hypercapnia (CMS/[facility]) Disorder of adrenal gland, unspecified (CMS/[facility]) Non-pressure chronic ulcer of other part of right lower leg limited to breakdown of skin (CMS/[facility]) Non-recurrent acute suppurative otitis media of left ear without spontaneous rupture of tympanic membrane Primary hypertension ([facility])- Primary Unspecified essential hypertension Insomnia Insomnia, unspecified Type 2 diabetes mellitus with complication, with long-term current use of insulin (CMS/[facility]) Non-seasonal allergic rhinitis, unspecified trigger Type 2 diabetes mellitus with unspecified complications (CMS/[facility]) Anxiety and depression (CMS/[facility]) Gastro-esophageal reflux disease without esophagitis Edema, unspecified Edema Diabetic polyneuropathy associated with type 2 diabetes mellitus ([facility]) Chronic obstructive pulmonary disease, unspecified (CMS/[facility]) Pulmonary emphysema, unspecified emphysema type (CMS/HCC) Bilateral lower extremity edema Tobacco user Tobacco use disorder Hyperpigmentation of skin Other dyschromia Bilateral lower extremity edema documented in this encounter [facility] HealthcareEvaluation note* Diagnosis Obstructive sleep apnea- Primary Obstructive sleep apnea (adult) (pediatric) Pulmonary emphysema, unspecified emphysema type (CMS/HCC) Primary hypertension (CMS/HCC) Unspecified essential hypertension Type 2 diabetes mellitus with complication, with long-term current use of insulin (CMS/[facility]) Anxiety and depression (CMS/[facility]) Bilateral lower extremity edema Pulmonary emphysema, unspecified [...] to 59.9 in adult, unspecified obesity type ([facility]) Encounter for subsequent annual wellness visit (AWV) in Medicare patient- Primary Type 2 diabetes mellitus with unspecified complications (CMS/HCC) Pulmonary emphysema, unspecified emphysema type (CMS/HCC) Moderate persistent asthma without complication (CMS/HCC) Primary hypertension (CMS/[facility]) Unspecified essential hypertension Type 2 diabetes mellitus with complication, with long-term current use of insulin (CMS/[facility]) Class 3 severe obesity with serious comorbidity [...] spontaneous rupture of tympanic membrane Primary hypertension ([facility])- Primary Unspecified essential hypertension Insomnia Insomnia, unspecified Type 2 diabetes mellitus with complication, with long-term current use of insulin ([facility]) Non-seasonal allergic rhinitis, unspecified trigger Type 2 diabetes mellitus with unspecified complications ([facility]) Anxiety and depression ([facility]) Gastro-esophageal reflux disease without esophagitis Edema, unspecified Edema Diabetic polyneuropathy associated with type 2 diabetes mellitus ([facility]) Chronic obstructive pulmonary disease, unspecified ([facility]) Pulmonary emphysema, unspecified emphysema type ([facility]) Bilateral lower extremity edema Tobacco user Tobacco use disorder Hyperpigmentation of skin Other dyschromia Primary hypertension ([facility])- Primary Unspecified essential hypertension Diabetic polyneuropathy associated with type 2 diabetes mellitus ([facility]) Pulmonary emphysema, unspecified emphysema type ([facility] Critical limb ischemia of right lower extremity ([facility]) PAD (peripheral artery disease) ([facility]) Unspecified peripheral vascular disease Gastroesophageal reflux disease, unspecified whether esophagitis present Bilateral lower extremity edema Venous ulcer of right leg ([facility]) Type 2 diabetes mellitus with complication, with long-term current use of insulin ([facility]) Tobacco user Tobacco use disorder Encounter for smoking cessation counseling Kidney stone Calculus of kidney Adrenal mass 1 cm to 4 cm in diameter ([facility]) Radiculopathy, lumbar region Thoracic or lumbosacral neuritis or radiculitis, unspecified Non-seasonal allergic rhinitis, unspecified trigger Type 2 diabetes mellitus with unspecified complications ([facility]) documented in this encounter [facility] HealthcareEvaluation note* Diagnosis Obstructive sleep apnea- Primary Obstructive sleep apnea (adult) (pediatric) Pulmonary emphysema, unspecified emphysema type ([facility]/HCC) Primary hypertension ([facility]) Unspecified essential hypertension Type 2 diabetes mellitus with complication, with long-term current use of insulin ([facility]) Anxiety and depression ([facility]) Bilateral lower extremity edema Pulmonary emphysema, unspecified emphysema type ([facility]/HCC)- Primary Primary hypertension ([facility]) Unspecified essential hypertension Class 3 severe obesity with serious comorbidity and body mass index (BMI) of 50.0 to 59.9 in adult, unspecified obesity type ([facility]) Obstructive sleep apnea Obstructive sleep apnea (adult) [...] to 59.9 in adult, unspecified obesity type ([facility]) Encounter for subsequent annual wellness visit (AWV) in Medicare patient- Primary Type 2 diabetes mellitus with unspecified complications (CMS/HCC) Pulmonary emphysema, unspecified emphysema type (CMS/HCC) Moderate persistent asthma without complication (CMS/HCC) Primary hypertension (CMS/HCC) Unspecified essential hypertension Type 2 diabetes mellitus with complication, with long-term current use of insulin (CMS/[facility]) Class 3 severe obesity with serious comorbidity [...] lower leg limited to breakdown of skin ([facility] Non-recurrent acute suppurative otitis media of left ear without spontaneous rupture of tympanic membrane Primary hypertension ([facility])- Primary Unspecified essential hypertension Insomnia Insomnia, unspecified Type 2 diabetes mellitus with complication, with long-term current use of insulin ([facility]) Non-seasonal allergic rhinitis, unspecified trigger Type 2 diabetes mellitus with unspecified complications ([facility]) Anxiety and depression ([facility]) Gastro-esophageal reflux disease without esophagitis Edema, unspecified Edema Diabetic polyneuropathy associated with type 2 diabetes mellitus ([facility]) Chronic obstructive pulmonary disease, unspecified (CMS/[facility]) Pulmonary emphysema, unspecified emphysema type (CMS/[facility]) Bilateral lower extremity edema Tobacco user Tobacco use disorder Hyperpigmentation of skin Other dyschromia Primary hypertension ([facility])- Primary Unspecified essential hypertension Diabetic polyneuropathy associated with type 2 diabetes mellitus ([facility]) Pulmonary emphysema, unspecified emphysema type ([facility] Critical limb ischemia of right lower extremity ([facility]) PAD (peripheral artery disease) ([facility]) Unspecified peripheral vascular disease Gastroesophageal reflux disease, unspecified whether esophagitis present Bilateral lower extremity edema Venous ulcer of right leg ([facility]) Type 2 diabetes mellitus with complication, with long-term current use of insulin ([facility]) Tobacco user Tobacco use disorder Encounter for smoking cessation counseling Kidney stone Calculus of kidney Adrenal mass 1 cm to 4 cm in diameter ([facility]) Radiculopathy, lumbar region Thoracic or lumbosacral neuritis or radiculitis, unspecified Non-seasonal allergic rhinitis, unspecified trigger Type 2 diabetes mellitus with unspecified complications ([facility]) Anxiety and depression ([facility])- Primary Morbid (severe) obesity due to excess calories ([facility]) Body mass index (BMI) 50.0-59.9, adult ([facility]) Malignant neoplasm of cervix uteri, unspecified (CMS/[facility]) Diabetic polyneuropathy associated with type 2 diabetes mellitus (CMS/[facility]) Chronic diastolic heart failure ([facility]) Chronic diastolic heart failure Primary hypertension ([facility] Unspecified essential hypertension 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 (CMS/[facility]) Gastroesophageal reflux disease, unspecified whether esophagitis present Bilateral lower extremity edema Type 2 diabetes mellitus with complication, with long-term current use of insulin ([facility] Tobacco user Tobacco use disorder Mixed hyperlipidemia ([facility]) Mixed hyperlipidemia Gout, unspecified cause, unspecified chronicity, unspecified site Vitamin deficiency Unspecified vitamin deficiency Gastro-esophageal reflux disease without esophagitis Edema, unspecified Edema Hyperlipidemia, unspecified ([facility] Encounter for smoking cessation counseling Venous ulcer of right leg ([facility]) Antibiotic-induced yeast infection documented in this encounter [facility] HealthcareEvaluation note* Diagnosis Obstructive sleep apnea- Primary Obstructive sleep apnea (adult) (pediatric) Pulmonary emphysema, unspecified emphysema type ([facility]) Primary hypertension ([facility]) Unspecified essential hypertension Type 2 diabetes mellitus with complication, with long-term current use of insulin ([facility]) Anxiety and depression ([facility]) Bilateral lower extremity edema Pulmonary emphysema, unspecified emphysema type ([facility])- Primary Primary hypertension ([facility]) Unspecified essential hypertension Class 3 severe obesity with serious comorbidity and body mass index (BMI) of 50.0 to 59.9 in adult, unspecified obesity type Obstructive sleep apnea Obstructive sleep apnea (adult) (pediatric) Pulmonary hypertension ([facility]) Other chronic pulmonary heart diseases Tobacco user Tobacco use disorder Cardiomegaly Primary hypertension ([facility])- Primary Unspecified essential hypertension Gastroesophageal reflux disease, unspecified whether esophagitis present Type 2 diabetes mellitus with complication, with long-term current use of insulin ([facility]) Mixed hyperlipidemia ([facility]) Mixed hyperlipidemia Tobacco user Tobacco use disorder Encounter for screening mammogram for malignant neoplasm of breast Chronic obstructive pulmonary disease, unspecified Other specified chronic obstructive pulmonary disease Anxiety and depression ([facility]) Edema, unspecified Edema Hyperlipidemia, unspecified ([facility]) Diabetic polyneuropathy associated with type 2 diabetes mellitus ([facility]) Gout, unspecified cause, unspecified chronicity, unspecified site Non-seasonal allergic rhinitis, unspecified trigger Bilateral lower extremity edema COPD exacerbation ([facility]) Obstructive chronic bronchitis with exacerbation Pulmonary emphysema, unspecified emphysema type ([facility]) Venous insufficiency Unspecified venous (peripheral) insufficiency Candidiasis of breast COPD exacerbation ([facility])- Primary Obstructive chronic bronchitis with exacerbation Pulmonary hypertension ([facility]) Other chronic pulmonary heart diseases Class 3 severe obesity with serious comorbidity and body mass index (BMI) of 50.0 to 59.9 in adult, unspecified obesity type Encounter for subsequent annual wellness visit (AWV) in Medicare patient- Primary Type 2 diabetes mellitus with unspecified complications Pulmonary emphysema, unspecified emphysema type ([facility] Moderate persistent asthma without complication ([facility]) Primary hypertension ([facility]) Unspecified essential hypertension Type 2 diabetes mellitus with complication, with long-term current use of insulin ([facility]) Class 3 severe obesity with serious comorbidity and body mass index (BMI) of 50.0 to 59.9 in adult, unspecified obesity type Tobacco user Tobacco use disorder Other headache syndrome Malignant neoplasm of cervix uteri, unspecified Other specified disorders of adrenal gland Major depressive disorder, single episode, mild (HCC) ([facility]) Major depressive disorder, single episode, mild 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 exposed Chronic respiratory failure, unspecified whether with hypoxia or hypercapnia Disorder of adrenal gland, unspecified Non-pressure chronic ulcer of other part of right lower leg limited to breakdown of skin ([facility]) Non-recurrent acute suppurative otitis media of left ear without spontaneous rupture of tympanic membrane Primary hypertension ([facility])- Primary Unspecified essential hypertension Insomnia Insomnia, unspecified Type 2 diabetes mellitus with complication, with long-term current use of insulin ([facility]) Non-seasonal allergic rhinitis, unspecified trigger Type 2 diabetes mellitus with unspecified complications Anxiety and depression ([facility]) Gastro-esophageal reflux disease without esophagitis Edema, unspecified Edema Diabetic polyneuropathy associated with type 2 diabetes mellitus ([facility]) Chronic obstructive pulmonary disease, unspecified Pulmonary emphysema, unspecified emphysema type (CMS/HCC) Bilateral lower extremity edema Tobacco user Tobacco use disorder Hyperpigmentation of skin Other dyschromia Primary hypertension ([facility])- Primary Unspecified essential hypertension Diabetic polyneuropathy associated with type 2 diabetes mellitus ([facility]) Pulmonary emphysema, unspecified emphysema type ([facility]/HCC) Critical limb ischemia of right lower extremity ([facility]) PAD (peripheral artery disease) ([facility]) Unspecified peripheral vascular disease Gastroesophageal reflux disease, unspecified whether esophagitis present Bilateral lower extremity edema Venous ulcer of right leg ([facility]) Type 2 diabetes mellitus with complication, with long-term current use of insulin ([facility] Tobacco user Tobacco use disorder Encounter for smoking cessation counseling Kidney stone Calculus of kidney Adrenal mass 1 cm to 4 cm in diameter ([facility]) Radiculopathy, lumbar region Thoracic or lumbosacral neuritis or radiculitis, unspecified Non-seasonal allergic rhinitis, unspecified trigger Type 2 diabetes mellitus with unspecified complications Anxiety and depression ([facility])- Primary Morbid (severe) obesity due to excess calories ([facility]) Body mass index (BMI) 50.0-59.9, adult ([facility]) Malignant neoplasm of cervix uteri, unspecified Diabetic polyneuropathy associated with type 2 diabetes mellitus ([facility]) Chronic diastolic heart failure ([facility]) Chronic diastolic heart failure Primary hypertension ([facility]) Unspecified essential hypertension 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 Gastroesophageal reflux disease, unspecified whether esophagitis present Bilateral lower extremity edema Type 2 diabetes mellitus with complication, with long-term current use of insulin ([facility]) Tobacco user Tobacco use disorder Mixed hyperlipidemia ([facility]) Mixed hyperlipidemia Gout, unspecified cause, unspecified chronicity, unspecified site Vitamin deficiency Unspecified vitamin deficiency Gastro-esophageal reflux disease without esophagitis Edema, unspecified Edema Hyperlipidemia, unspecified ([facility]) Encounter for smoking cessation counseling Venous ulcer of right leg ([facility]) Antibiotic-induced yeast infection Type 2 diabetes mellitus with hyperglycemia, with long-term current use of insulin ([facility])- Primary Encounter for dietary consultation Vitamin D deficiency Primary hypertension ([facility]) Unspecified essential hypertension Insulin long-term use ([facility]) Encounter for long-term (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 Hyperlipemia, mixed ([facility]) Mixed hyperlipidemia Microalbuminuria Proteinuria Class 3 severe obesity due to excess calories with serious comorbidity and body mass index (BMI) of 50.0 to 59.9 in adult documented in this encounter [facility] HealthcareEvaluation note* Diagnosis Obstructive sleep apnea- Primary Obstructive sleep apnea (adult) (pediatric) Pulmonary emphysema, unspecified emphysema type ([facility]) Primary hypertension ([facility]) Unspecified essential hypertension Type 2 diabetes mellitus with complication, with long-term current use of insulin ([facility]) Anxiety and depression ([facility]) Bilateral lower extremity edema Pulmonary emphysema, unspecified emphysema type ([facility])- Primary Primary hypertension ([facility]) Unspecified essential hypertension Class 3 severe obesity with serious comorbidity and body mass index (BMI) of 50.0 to 59.9 in adult, unspecified obesity type Obstructive sleep apnea Obstructive sleep apnea (adult) (pediatric) Pulmonary hypertension ([facility]/HCC) Other chronic pulmonary heart diseases Tobacco user Tobacco use disorder Cardiomegaly Primary hypertension ([facility]/HCC)- Primary Unspecified essential hypertension Gastroesophageal reflux disease, unspecified whether esophagitis present Type 2 diabetes mellitus with complication, with long-term current use of insulin (CMS/[facility]) Mixed hyperlipidemia ([facility]) Mixed hyperlipidemia Tobacco user Tobacco use disorder Encounter for screening mammogram for malignant neoplasm of breast Chronic obstructive pulmonary disease, unspecified Other specified chronic obstructive pulmonary disease Anxiety and depression ([facility]) Edema, unspecified Edema Hyperlipidemia, unspecified ([facility]) Diabetic polyneuropathy associated with type 2 diabetes mellitus (CMS/[facility]) Gout, unspecified cause, unspecified chronicity, unspecified site Non-seasonal allergic rhinitis, unspecified trigger Bilateral lower extremity edema COPD exacerbation ([facility]) Obstructive chronic bronchitis with exacerbation Pulmonary emphysema, unspecified emphysema type ([facility]) Venous insufficiency Unspecified venous (peripheral) insufficiency Candidiasis of breast COPD exacerbation ([facility])- Primary Obstructive chronic bronchitis with exacerbation Pulmonary hypertension ([facility]) Other chronic pulmonary heart diseases Class 3 severe obesity with serious comorbidity and body mass index (BMI) of 50.0 to 59.9 in adult, unspecified obesity type Encounter for subsequent annual wellness visit (AWV) in Medicare patient- Primary Type 2 diabetes mellitus with unspecified complications Pulmonary emphysema, unspecified emphysema type ([facility]) Moderate persistent asthma without complication ([facility] Primary hypertension ([facility]) Unspecified essential hypertension Type 2 diabetes mellitus with complication, with long-term current use of insulin ([facility]) Class 3 severe obesity with serious comorbidity and body mass index (BMI) of 50.0 to 59.9 in adult, unspecified obesity type Tobacco user Tobacco use disorder Other headache syndrome Malignant neoplasm of cervix uteri, unspecified Other specified disorders of adrenal gland Major depressive disorder, single episode, mild (HCC) ([facility]) Major depressive disorder, single episode, mild 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 exposed Chronic respiratory failure, unspecified whether with hypoxia or hypercapnia Disorder of adrenal gland, unspecified Non-pressure chronic ulcer of other part of right lower leg limited to breakdown of skin ([facility]) Non-recurrent acute suppurative otitis media of left ear without spontaneous rupture of tympanic membrane Primary hypertension ([facility])- Primary Unspecified essential hypertension Insomnia Insomnia, unspecified Type 2 diabetes mellitus with complication, with long-term current use of insulin ([facility]) Non-seasonal allergic rhinitis, unspecified trigger Type 2 diabetes mellitus with unspecified complications Anxiety and depression ([facility]) Gastro-esophageal reflux disease without esophagitis Edema, unspecified Edema Diabetic polyneuropathy associated with type 2 diabetes mellitus ([facility]) Chronic obstructive pulmonary disease, unspecified Pulmonary emphysema, unspecified emphysema type ([facility]) Bilateral lower extremity edema Tobacco user Tobacco use disorder Hyperpigmentation of skin Other dyschromia Primary hypertension ([facility])- Primary Unspecified essential hypertension Diabetic polyneuropathy associated with type 2 diabetes mellitus ([facility]) Pulmonary emphysema, unspecified emphysema type ([facility] Critical limb ischemia of right lower extremity ([facility] PAD (peripheral artery disease) ([facility]) Unspecified peripheral vascular disease Gastroesophageal reflux disease, unspecified whether esophagitis present Bilateral lower extremity edema Venous ulcer of right leg ([facility]) Type 2 diabetes mellitus with complication, with long-term current use of insulin ([facility]) Tobacco user Tobacco use disorder Encounter for smoking cessation counseling Kidney stone Calculus of kidney Adrenal mass 1 cm to 4 cm in diameter ([facility]) Radiculopathy, lumbar region Thoracic or lumbosacral neuritis or radiculitis, unspecified Non-seasonal allergic rhinitis, unspecified trigger Type 2 diabetes mellitus with unspecified complications Anxiety and depression ([facility])- Primary Morbid (severe) obesity due to excess calories ([facility]) Body mass index (BMI) 50.0-59.9, adult ([facility]) Malignant neoplasm of cervix uteri, unspecified Diabetic polyneuropathy associated with type 2 diabetes mellitus ([facility] Chronic diastolic heart failure ([facility]) Chronic diastolic heart failure Primary hypertension ([facility]) Unspecified essential hypertension 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 Gastroesophageal reflux disease, unspecified whether esophagitis present Bilateral lower extremity edema Type 2 diabetes mellitus with complication, with long-term current use of insulin ([facility] Tobacco user Tobacco use disorder Mixed hyperlipidemia ([facility]) Mixed hyperlipidemia Gout, unspecified cause, unspecified chronicity, unspecified site Vitamin deficiency Unspecified vitamin deficiency Gastro-esophageal reflux disease without esophagitis Edema, unspecified Edema Hyperlipidemia, unspecified ([facility]) Encounter for smoking cessation counseling Venous ulcer of right leg ([facility]) Antibiotic-induced yeast infection Chronic obstructive pulmonary disease, unspecified documented in this encounter [facility] HealthcareEvaluation note* Diagnosis Obstructive sleep apnea- Primary Obstructive sleep apnea (adult) (pediatric) Pulmonary emphysema, unspecified emphysema type ([facility]) Primary hypertension ([facility]) Unspecified essential hypertension Type 2 diabetes mellitus with complication, with long-term current use of insulin ([facility]) Anxiety and depression ([facility]) Bilateral lower extremity edema Pulmonary emphysema, unspecified emphysema type ([facility])- Primary Primary hypertension ([facility]) Unspecified essential hypertension Class 3 severe obesity with serious comorbidity and body mass index (BMI) of 50.0 to 59.9 in adult, unspecified obesity type Obstructive sleep apnea Obstructive sleep apnea (adult) (pediatric) Pulmonary hypertension ([facility]) Other chronic pulmonary heart diseases Tobacco user Tobacco use disorder Cardiomegaly Primary hypertension ([facility])- Primary Unspecified essential hypertension Gastroesophageal reflux disease, unspecified whether esophagitis present Type 2 diabetes mellitus with complication, with long-term current use of insulin ([facility]) Mixed hyperlipidemia ([facility]) Mixed hyperlipidemia Tobacco user Tobacco use disorder Encounter for screening mammogram for malignant neoplasm of breast Chronic obstructive pulmonary disease, unspecified Other specified chronic obstructive pulmonary disease Anxiety and depression ([facility]) Edema, unspecified Edema Hyperlipidemia, unspecified ([facility]) Diabetic polyneuropathy associated with type 2 diabetes mellitus ([facility]) Gout, unspecified cause, unspecified chronicity, unspecified site Non-seasonal allergic rhinitis, unspecified trigger Bilateral lower extremity edema COPD exacerbation ([facility]) Obstructive chronic bronchitis with exacerbation Pulmonary emphysema, unspecified emphysema type ([facility]) Venous insufficiency Unspecified venous (peripheral) insufficiency Candidiasis of breast COPD exacerbation ([facility])- Primary Obstructive chronic bronchitis with exacerbation Pulmonary hypertension ([facility]) Other chronic pulmonary heart diseases Class 3 severe obesity with serious comorbidity and body mass index (BMI) of 50.0 to 59.9 in adult, unspecified obesity type Encounter for subsequent annual wellness visit (AWV) in Medicare patient- Primary Type 2 diabetes mellitus with unspecified complications Pulmonary emphysema, unspecified emphysema type ([facility] Moderate persistent asthma without complication ([facility]) Primary hypertension ([facility]) Unspecified essential hypertension Type 2 diabetes mellitus with complication, with long-term current use of insulin ([facility]) Class 3 severe obesity with serious comorbidity and body mass index (BMI) of 50.0 to 59.9 in adult, unspecified obesity type Tobacco user Tobacco use disorder Other headache syndrome Malignant neoplasm of cervix uteri, unspecified Other specified disorders of adrenal gland Major depressive disorder, single episode, mild (HCC) ([facility]) Major depressive disorder, single episode, mild 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 exposed Chronic respiratory failure, unspecified whether with hypoxia or hypercapnia Disorder of adrenal gland, unspecified Non-pressure chronic ulcer of other part of right lower leg limited to breakdown of skin ([facility]) Non-recurrent acute suppurative otitis media of left ear without spontaneous rupture of tympanic membrane Primary hypertension ([facility])- Primary Unspecified essential hypertension Insomnia Insomnia, unspecified Type 2 diabetes mellitus with complication, with long-term current use of insulin ([facility]) Non-seasonal allergic rhinitis, unspecified trigger Type 2 diabetes mellitus with unspecified complications Anxiety and depression ([facility]) Gastro-esophageal reflux disease without esophagitis Edema, unspecified Edema Diabetic polyneuropathy associated with type 2 diabetes mellitus ([facility]) Chronic obstructive pulmonary disease, unspecified Pulmonary emphysema, unspecified emphysema type ([facility]) Bilateral lower extremity edema Tobacco user Tobacco use disorder Hyperpigmentation of skin Other dyschromia Primary hypertension ([facility])- Primary Unspecified essential hypertension Diabetic polyneuropathy associated with type 2 diabetes mellitus ([facility]) Pulmonary emphysema, unspecified emphysema type ([facility] Critical limb ischemia of right lower extremity ([facility]) PAD (peripheral artery disease) ([facility]) Unspecified peripheral vascular disease Gastroesophageal reflux disease, unspecified whether esophagitis present Bilateral lower extremity edema Venous ulcer of right leg ([facility]) Type 2 diabetes mellitus with complication, with long-term current use of insulin ([facility]) Tobacco user Tobacco use disorder Encounter for smoking cessation counseling Kidney stone Calculus of kidney Adrenal mass 1 cm to 4 cm in diameter ([facility]) Radiculopathy, lumbar region Thoracic or lumbosacral neuritis or radiculitis, unspecified Non-seasonal allergic rhinitis, unspecified trigger Type 2 diabetes mellitus with unspecified complications Anxiety and depression ([facility])- Primary Morbid (severe) obesity due to excess calories ([facility]) Body mass index (BMI) 50.0-59.9, adult ([facility]) Malignant neoplasm of cervix uteri, unspecified Diabetic polyneuropathy associated with type 2 diabetes mellitus ([facility] Chronic diastolic heart failure ([facility]) Chronic diastolic heart failure Primary hypertension ([facility]) Unspecified essential hypertension 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 Gastroesophageal reflux disease, unspecified whether esophagitis present Bilateral lower extremity edema Type 2 diabetes mellitus with complication, with long-term current use of insulin ([facility] Tobacco user Tobacco use disorder Mixed hyperlipidemia ([facility]) Mixed hyperlipidemia Gout, unspecified cause, unspecified chronicity, unspecified site Vitamin deficiency Unspecified vitamin deficiency Gastro-esophageal reflux disease without esophagitis Edema, unspecified Edema Hyperlipidemia, unspecified ([facility]) Encounter for smoking cessation counseling Venous ulcer of right leg ([facility]) Antibiotic-induced yeast infection Primary hypertension ([facility])- Primary Unspecified essential hypertension Diabetic polyneuropathy associated with type 2 diabetes mellitus ([facility]) Chronic diastolic heart failure ([facility]) Chronic diastolic heart failure Bilateral lower extremity edema Morbid (severe) obesity due to excess calories ([facility]) Type 2 diabetes mellitus with complication, with long-term current use of insulin ([facility] Anxiety and depression ([facility]) Cigarette nicotine dependence without complication Encounter for screening mammogram for malignant neoplasm of breast Insomnia Insomnia, unspecified Non-seasonal allergic rhinitis, unspecified trigger Type 2 diabetes mellitus with unspecified complications Vitamin D deficiency, unspecified Gastro-esophageal reflux disease without esophagitis PAD (peripheral artery disease) ([facility]) Unspecified peripheral vascular disease Gastroesophageal reflux disease, unspecified whether esophagitis present Venous ulcer of right leg ([facility]) documented in this encounter [facility] HealthcareEvaluation note* Diagnosis Obstructive sleep apnea- Primary Obstructive sleep apnea (adult) (pediatric) Pulmonary emphysema, unspecified emphysema type (HCC) Primary hypertension Unspecified essential hypertension Type 2 diabetes mellitus with complication, with long-term current use of insulin ([facility]) Anxiety and depression Bilateral lower extremity edema Pulmonary emphysema, unspecified emphysema type (HCC)- Primary Primary hypertension Unspecified essential hypertension Class 3 severe obesity with serious comorbidity and body mass index (BMI) of 50.0 to 59.9 in adult, unspecified obesity type ([facility]) Obstructive sleep apnea Obstructive sleep apnea (adult) [...] to 59.9 in adult, unspecified obesity type [place] Encounter for subsequent annual wellness visit (AWV) in Medicare patient- Primary Type 2 diabetes mellitus with unspecified complications (HCC) Pulmonary emphysema, unspecified emphysema type (HCC) Moderate persistent asthma without complication (HCC) Primary hypertension Unspecified essential hypertension Type 2 diabetes mellitus with complication, with long-term current use of insulin ([facility]) Class 3 severe obesity with serious comorbidity and body mass index (BMI) of 50.0 to 59.9 in adult, unspecified obesity type ([facility]) Tobacco user Tobacco use disorder Other headache [...] (HCC) Pulmonary emphysema, unspecified emphysema type (HCC) Critical limb ischemia of right lower extremity ([facility]) PAD (peripheral artery disease) Unspecified peripheral vascular disease Gastroesophageal reflux disease, unspecified whether esophagitis present Bilateral lower extremity edema Venous ulcer of right leg (HCC) Type 2 diabetes mellitus with complication, with long-term current use of insulin ([facility]) Tobacco user Tobacco use disorder Encounter for smoking cessation counseling Kidney stone Calculus of kidney Adrenal mass 1 cm to 4 cm in diameter ([facility]) Radiculopathy, lumbar region Thoracic or lumbosacral neuritis or radiculitis, unspecified Non-seasonal allergic rhinitis, unspecified trigger Type 2 diabetes mellitus with unspecified complications ([facility]) Anxiety and depression- Primary Morbid (severe) obesity due to excess calories ([facility]) Body mass index (BMI) 50.0-59.9, adult ([facility] Malignant neoplasm of cervix uteri, unspecified ([facility]) Diabetic polyneuropathy associated with type 2 diabetes mellitus ([facility]) Chronic diastolic heart failure (HCC) Chronic diastolic heart failure Primary hypertension Unspecified essential hypertension 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 ([facility]) Gastroesophageal reflux disease, unspecified whether esophagitis present Bilateral lower extremity edema Type 2 diabetes mellitus with complication, with long-term current use of insulin ([facility]) Tobacco user Tobacco use disorder Mixed hyperlipidemia Mixed hyperlipidemia Gout, unspecified cause, unspecified chronicity, unspecified site Vitamin deficiency Unspecified vitamin deficiency Gastro-esophageal reflux disease without esophagitis Edema, unspecified Edema Hyperlipidemia, unspecified Encounter for smoking cessation counseling Venous ulcer of right leg ([facility]) Antibiotic-induced yeast infection Primary hypertension- Primary Unspecified essential hypertension Diabetic polyneuropathy associated with type 2 diabetes mellitus (HCC) Chronic diastolic heart failure (HCC) Chronic diastolic heart failure Bilateral lower extremity edema Morbid (severe) obesity due to excess calories ([facility] Type 2 diabetes mellitus with complication, with long-term current use of insulin ([facility]) Anxiety and depression Cigarette nicotine dependence without complication Encounter for screening mammogram for malignant neoplasm of breast Insomnia Insomnia, unspecified Non-seasonal allergic rhinitis, unspecified trigger Type 2 diabetes mellitus with unspecified complications ([facility]) Vitamin D deficiency, unspecified Gastro-esophageal reflux disease without esophagitis PAD (peripheral artery disease) Unspecified peripheral vascular disease Gastroesophageal reflux disease, unspecified whether esophagitis present Venous ulcer of right leg ([facility]) Cellulitis of left lower extremity- Primary COPD exacerbation (HCC) Obstructive chronic bronchitis with exacerbation Primary hypertension Unspecified essential hypertension Pulmonary hypertension (HCC) Other chronic pulmonary heart diseases Morbid (severe) obesity due to excess calories ([facility]) Type 2 diabetes mellitus with complication, with long-term current use of insulin ([facility]) Anxiety and depression Fever, unspecified fever cause Hyperlipidemia, unspecified Tobacco user Tobacco use disorder Encounter for smoking cessation counseling documented in this encounter [facility] HealthcareEvaluation note* Diagnosis Obstructive sleep apnea- Primary Obstructive sleep apnea (adult) (pediatric) Pulmonary emphysema, unspecified emphysema type ([facility]) Primary hypertension ([facility]) Unspecified essential hypertension Type 2 diabetes mellitus with complication, with long-term current use of insulin ([facility]) Anxiety and depression ([facility] [place] Bilateral lower extremity edema Pulmonary emphysema, unspecified emphysema type ([facility] Primary Primary hypertension ([facility]) Unspecified essential hypertension Class 3 severe obesity with serious comorbidity and body mass index (BMI) of 50.0 to 59.9 in adult, unspecified obesity type Obstructive sleep apnea Obstructive sleep apnea (adult) (pediatric) Pulmonary hypertension ([facility]) Other chronic pulmonary heart diseases Tobacco user Tobacco use disorder Cardiomegaly Primary hypertension ([facility])- Primary Unspecified essential hypertension Gastroesophageal reflux disease, unspecified whether esophagitis present Type 2 diabetes mellitus with complication, with long-term current use of insulin ([facility]) Mixed hyperlipidemia ([facility]) Mixed hyperlipidemia Tobacco user Tobacco use disorder Encounter for screening mammogram for malignant neoplasm of breast Chronic obstructive pulmonary disease, unspecified Other specified chronic obstructive pulmonary disease Anxiety and depression ([facility]) Edema, unspecified Edema Hyperlipidemia, unspecified ([facility]) Diabetic polyneuropathy associated with type 2 diabetes mellitus ([facility]) Gout, unspecified cause, unspecified chronicity, unspecified site Non-seasonal allergic rhinitis, unspecified trigger Bilateral lower extremity edema COPD exacerbation ([facility]) Obstructive chronic bronchitis with exacerbation Pulmonary emphysema, unspecified emphysema type ([facility]) Venous insufficiency Unspecified venous (peripheral) insufficiency Candidiasis of breast COPD exacerbation ([facility])- Primary Obstructive chronic bronchitis with exacerbation Pulmonary hypertension ([facility]) Other chronic pulmonary heart diseases Class 3 severe obesity with serious comorbidity and body mass index (BMI) of 50.0 to 59.9 in adult, unspecified obesity type Encounter for subsequent annual wellness visit (AWV) in Medicare patient- Primary Type 2 diabetes mellitus with unspecified complications Pulmonary emphysema, unspecified emphysema type ([facility] Moderate persistent asthma without complication ([facility] Primary hypertension ([facility]) Unspecified essential hypertension Type 2 diabetes mellitus with complication, with long-term current use of insulin ([facility]) Class 3 severe obesity with serious comorbidity and body mass index (BMI) of 50.0 to 59.9 in adult, unspecified obesity type Tobacco user Tobacco use disorder Other headache syndrome Malignant neoplasm of cervix uteri, unspecified Other specified disorders of adrenal gland Major depressive disorder, single episode, mild (HCC) ([facility]) Major depressive disorder, single episode, mild 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 exposed Chronic respiratory failure, unspecified whether with hypoxia or hypercapnia Disorder of adrenal gland, unspecified Non-pressure chronic ulcer of other part of right lower leg limited to breakdown of skin ([facility]) Non-recurrent acute suppurative otitis media of left ear without spontaneous rupture of tympanic membrane Primary hypertension ([facility])- Primary Unspecified essential hypertension Insomnia Insomnia, unspecified Type 2 diabetes mellitus with complication, with long-term current use of insulin ([facility]) Non-seasonal allergic rhinitis, unspecified trigger Type 2 diabetes mellitus with unspecified complications Anxiety and depression ([facility]) Gastro-esophageal reflux disease without esophagitis Edema, unspecified Edema Diabetic polyneuropathy associated with type 2 diabetes mellitus ([facility]) Chronic obstructive pulmonary disease, unspecified Pulmonary emphysema, unspecified emphysema type (CMS/HCC) Bilateral lower extremity edema Tobacco user Tobacco use disorder Hyperpigmentation of skin Other dyschromia Primary hypertension (CMS/HCC)- Primary Unspecified essential hypertension Diabetic polyneuropathy associated with type 2 diabetes mellitus ([facility]) Pulmonary emphysema, unspecified emphysema type (CMS/HCC) Critical limb ischemia of right lower extremity ([facility]) PAD (peripheral artery disease) ([facility]) Unspecified peripheral vascular disease Gastroesophageal reflux disease, unspecified whether esophagitis present Bilateral lower extremity edema Venous ulcer of right leg ([facility]) Type 2 diabetes mellitus with complication, with long-term current use of insulin ([facility]) Tobacco user Tobacco use disorder Encounter for smoking cessation counseling Kidney stone Calculus of kidney Adrenal mass 1 cm to 4 cm in diameter ([facility]) Radiculopathy, lumbar region Thoracic or lumbosacral neuritis or radiculitis, unspecified Non-seasonal allergic rhinitis, unspecified trigger Type 2 diabetes mellitus with unspecified complications Anxiety and depression ([facility])- Primary Morbid (severe) obesity due to excess calories ([facility]) Body mass index (BMI) 50.0-59.9, adult ([facility]) Malignant neoplasm of cervix uteri, unspecified Diabetic polyneuropathy associated with type 2 diabetes mellitus ([facility]) Chronic diastolic heart failure ([facility] Chronic diastolic heart failure Primary hypertension ([facility]) Unspecified essential hypertension 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 Gastroesophageal reflux disease, unspecified whether esophagitis present Bilateral lower extremity edema Type 2 diabetes mellitus with complication, with long-term current use of insulin ([facility]) Tobacco user Tobacco use disorder Mixed hyperlipidemia ([facility]) Mixed hyperlipidemia Gout, unspecified cause, unspecified chronicity, unspecified site Vitamin deficiency Unspecified vitamin deficiency Gastro-esophageal reflux disease without esophagitis Edema, unspecified Edema Hyperlipidemia, unspecified ([facility]) Encounter for smoking cessation counseling Venous ulcer of right leg ([facility]) Antibiotic-induced yeast infection Primary hypertension ([facility] Primary Unspecified essential hypertension Diabetic polyneuropathy associated with type 2 diabetes mellitus ([facility]) Chronic diastolic heart failure ([facility]) Chronic diastolic heart failure Bilateral lower extremity edema Morbid (severe) obesity due to excess calories ([facility]) Type 2 diabetes mellitus with complication, with long-term current use of insulin ([facility]) Anxiety and depression ([facility]) Cigarette nicotine dependence without complication Encounter for screening mammogram for malignant neoplasm of breast Insomnia Insomnia, unspecified Non-seasonal allergic rhinitis, unspecified trigger Type 2 diabetes mellitus with unspecified complications Vitamin D deficiency, unspecified Gastro-esophageal reflux disease without esophagitis PAD (peripheral artery disease) ([facility]) Unspecified peripheral vascular disease Gastroesophageal reflux disease, unspecified whether esophagitis present Venous ulcer of right leg ([facility]) Cellulitis of left lower extremity- Primary COPD exacerbation (CMS/HCC) Obstructive chronic bronchitis with exacerbation Primary hypertension (CMS/HCC) Unspecified essential hypertension Pulmonary hypertension (CMS/HCC) Other chronic pulmonary heart diseases Morbid (severe) obesity due to excess calories (CMS/HCC) Type 2 diabetes mellitus with complication, with long-term current use of insulin (CMS/HCC) Anxiety and depression (CMS/HCC) Fever, unspecified fever cause documented in this encounter [facility] HealthcareEvaluation note* Diagnosis Obstructive sleep apnea- [...] to 59.9 in adult, unspecified obesity type ([facility]) Obstructive sleep apnea Obstructive sleep apnea (adult) [...] to 59.9 in adult, unspecified obesity type ([facility]) Encounter for subsequent annual wellness visit (AWV) in Medicare patient- Primary Type 2 diabetes mellitus with unspecified complications (HCC) Pulmonary emphysema, unspecified emphysema type (HCC) Moderate persistent asthma without complication (HCC) Primary hypertension Unspecified essential hypertension Type 2 diabetes mellitus with complication, with long-term current use of insulin ([facility]) Class 3 severe obesity with serious comorbidity and body mass index (BMI) of 50.0 to 59.9 in adult, unspecified [place] type [place] [place] Tobacco user Tobacco use disorder Other headache syndrome Malignant neoplasm of cervix uteri, unspecified ([facility]) Other specified disorders of adrenal gland ([facility]) Major depressive disorder, single episode, mild Major depressive disorder, single episode, mild 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 exposed ([facility]) Chronic respiratory failure, unspecified whether with hypoxia or hypercapnia ([facility]) Disorder of adrenal gland, unspecified ([facility]) Non-pressure chronic ulcer of other part of right lower leg limited to breakdown of skin ([facility]) Non-recurrent acute suppurative otitis media of left ear without spontaneous rupture of tympanic membrane Primary hypertension- Primary Unspecified essential hypertension Insomnia Insomnia, unspecified Type 2 diabetes mellitus with complication, with long-term current use of insulin ([facility]) Non-seasonal allergic rhinitis, unspecified trigger Type 2 diabetes mellitus with unspecified complications ([facility]) Anxiety and depression Gastro-esophageal reflux disease without esophagitis Edema, unspecified Edema Diabetic polyneuropathy associated with type 2 diabetes mellitus ([facility]) Chronic obstructive pulmonary disease, unspecified ([facility]) Pulmonary emphysema, unspecified emphysema type ([facility]) Bilateral lower extremity edema Tobacco user Tobacco use disorder Hyperpigmentation of skin Other dyschromia Primary hypertension- Primary Unspecified essential hypertension Diabetic polyneuropathy associated with type 2 diabetes mellitus ([facility]) Pulmonary emphysema, unspecified emphysema type ([facility]) Critical limb ischemia of right lower extremity ([facility]) PAD (peripheral artery disease) Unspecified peripheral vascular disease Gastroesophageal reflux disease, unspecified whether esophagitis present Bilateral lower extremity edema Venous ulcer of right leg ([facility]) Type 2 diabetes mellitus with complication, with long-term current use of insulin ([facility]) Tobacco user Tobacco use disorder Encounter for smoking cessation counseling Kidney stone Calculus of kidney Adrenal mass 1 cm to 4 cm in diameter ([facility]) Radiculopathy, lumbar region Thoracic or lumbosacral neuritis or radiculitis, unspecified Non-seasonal allergic rhinitis, unspecified trigger Type 2 diabetes mellitus with unspecified complications ([facility]) Anxiety and depression- Primary Morbid (severe) obesity due to excess calories [place] [place] Body mass index (BMI) 50.0-59.9, adult [place] [place] Malignant neoplasm of cervix uteri, unspecified (HCC) [...] due to excess calories ([facility]) Type 2 diabetes mellitus with complication, with long-term current use of insulin ([facility]) Anxiety and depression Cigarette nicotine dependence without [...] due to excess calories ([facility]) Type 2 diabetes mellitus with complication, with [...] mellitus (HCC) Pulmonary emphysema, unspecified emphysema type ([facility]) Moderate persistent asthma without complication (HCC) Insomnia Insomnia, unspecified Non-seasonal allergic rhinitis, unspecified trigger Type 2 diabetes mellitus with unspecified complications (HCC) Anxiety and depression Antibiotic-induced yeast infection Chronic obstructive pulmonary disease, unspecified (HCC) Hyperlipidemia, unspecified Vaginal yeast infection Candidiasis of vulva and vagina Morbid (severe) obesity due to excess calories ([facility]) Type 2 diabetes mellitus with hyperglycemia, with long-term current use of insulin (HCC) documented in this encounter [facility] HealthcareEvaluation note* Diagnosis Obstructive sleep apnea- Primary [...] to 59.9 in adult, unspecified obesity type ([facility] Obstructive sleep apnea Obstructive sleep apnea (adult) [...] to 59.9 in adult, unspecified obesity type ([facility]) Encounter for subsequent annual wellness visit (AWV) in Medicare patient- Primary Type 2 diabetes mellitus with unspecified complications (HCC) Pulmonary emphysema, unspecified emphysema type (HCC) Moderate persistent asthma without complication (HCC) Primary hypertension Unspecified essential hypertension Type 2 diabetes mellitus with complication, with long-term current use of insulin ([facility]) Class 3 severe obesity with serious comorbidity and body mass index (BMI) of 50.0 to 59.9 in adult, unspecified obesity type [place] [place] Tobacco user Tobacco use disorder Other headache syndrome Malignant neoplasm of cervix uteri, unspecified ([facility]) Other specified disorders of adrenal gland ([facility]) Major depressive disorder, single episode, mild Major depressive disorder, single episode, mild 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 exposed ([facility]) Chronic respiratory failure, unspecified whether with hypoxia or hypercapnia ([facility]) Disorder of adrenal gland, unspecified ([facility]) Non-pressure chronic ulcer of other part of right lower leg limited to breakdown of skin ([facility]) Non-recurrent acute suppurative otitis media of left ear without spontaneous rupture of tympanic membrane Primary hypertension- Primary Unspecified essential hypertension Insomnia Insomnia, unspecified Type 2 diabetes mellitus with complication, with long-term current use of insulin ([facility]) Non-seasonal allergic rhinitis, unspecified trigger Type 2 diabetes mellitus with unspecified complications ([facility]) Anxiety and depression Gastro-esophageal reflux disease without esophagitis Edema, unspecified Edema Diabetic polyneuropathy associated with type 2 diabetes mellitus ([facility]) Chronic obstructive pulmonary disease, unspecified ([facility]) Pulmonary emphysema, unspecified emphysema type ([facility]) Bilateral lower extremity edema Tobacco user Tobacco use disorder Hyperpigmentation of skin Other dyschromia Primary hypertension- Primary Unspecified essential hypertension Diabetic polyneuropathy associated with type 2 diabetes mellitus ([facility]) Pulmonary emphysema, unspecified emphysema type ([facility]) Critical limb ischemia of right lower extremity ([facility] PAD (peripheral artery disease) Unspecified peripheral vascular disease Gastroesophageal reflux disease, unspecified whether esophagitis present Bilateral lower extremity edema Venous ulcer of right leg ([facility]) Type 2 diabetes mellitus with complication, with long-term current use of insulin ([facility]) Tobacco user Tobacco use disorder Encounter for smoking cessation counseling Kidney stone Calculus of kidney Adrenal mass 1 cm to 4 cm in diameter ([facility]) Radiculopathy, lumbar region Thoracic or lumbosacral neuritis or radiculitis, unspecified Non-seasonal allergic rhinitis, unspecified trigger Type 2 diabetes mellitus with unspecified complications ([facility]) Anxiety and depression- Primary Morbid (severe) obesity due to excess calories ([facility] Body mass index (BMI) 50.0-59.9, adult [place] [place] Malignant neoplasm of cervix uteri, unspecified (HCC) [...] due to excess calories ([facility] Type 2 diabetes mellitus with complication, with [...] due to excess calories ([facility] Type 2 diabetes mellitus with complication, with long-term current use of insulin ([facility]) Anxiety and depression Fever, unspecified fever cause [...] diabetes mellitus with unspecified complications ([facility]) Anxiety and depression Antibiotic-induced yeast infection Chronic obstructive pulmonary disease, unspecified (HCC) Hyperlipidemia, unspecified Vaginal yeast infection Candidiasis of vulva and vagina Morbid (severe) obesity due to excess calories ([facility] [place] [place] Encounter for dietary consultation- Primary Type 2 diabetes mellitus with hyperglycemia, with long-term current use of insulin ([facility]) Vitamin D deficiency Primary hypertension Unspecified essential hypertension Insulin long-term use ([facility]) Encounter for long-term (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 Hyperlipemia, mixed Mixed hyperlipidemia Microalbuminuria Proteinuria Class 3 severe obesity due to excess calories with serious comorbidity and body mass index (BMI) of 50.0 to 59.9 in adult ([facility] [place] documented in this encounter [facility] HealthcareHistory general [...] History sepsis 2010 Hospitalization History SEE ABOVE [employer] Other Hospital course Narrative No data available for this section [facility] progress note No data available for this section [facility] reason for referral (narrative) , Referral to Dr. Cortés Referred by: REGLA PHIPPS, Elbert Joya [facility] Advance Directives No Advanced Directives Records FoundDocuments on File Type Date Recorded Patient Gear Tooth Lapping 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 Expl anation Advance Directives and Living Will Power of Director It Project Summary Purpose Family History No Family History Records FoundNo Family History Records FoundNo Family History Records FoundNo Family History Records Found No data available for this section No Family History Records FoundNo Family History Records FoundNo Family History Records Found Additional Source Comments INFORMATION SOURCE (unrecogn ized section and content) DATE CREATED AUTHOR 10/30/2019 [facility] DATE CREATED AUTHOR AUTHOR'S ORGANIZ ATION 09/15/2020 [facility] DATE CREATED AUTHOR AUTHOR'S ORGANIZ ATION 12/19/2022 [facility] DATE CREATED AUTHOR AUTHOR'S ORGANIZ ATION 06/03/2024 [facility] DATE CREATED AUTHOR AUTHOR'S ORGANIZ ATION 01/30/2025 [facility] DATE CREATED AUTHOR AUTHOR'S ORGANIZ ATION 02/06/2025 [facility] DATE CREATED AUTHOR AUTHOR'S ORGANIZ ATION 02/28/2025 [facility] Care Team (unrecognized sect ion and content) Fruit Cutter Relationship Specialty Start Date End Date Ty Amin MD PCP - General Family Medicine 01/05/23 Fruit Cutter Relationship Specialty Start Date End Date Ty Amin MD PCP - General Family Medicine 01/05/23 Fruit Cutter Relationship Specialty Start Date End Date Ty Amin MD [address] [place] [id number] PCP - General Family Medicine 09/20/23 Mckayla Blas NP [address] [place] [id number] PCP - [facility] 09/07/23 09/05/90 Mckayla Blas NP [address] [place] [id number] Nurse Practitioner Family Medicine 09/20/23 Fruit Cutter Relationship Specialty Start Date End Date Ty Amin MD [address] [place] [address] PCP - General Family Medicine 09/20/23 Mckayla Blas NP [address] [place] [address] PCP - [facility] 09/07/23 09/05/90 Mckayla Blas NP [address] [place] [address] Nurse Practitioner Family Medicine 09/20/23 Fruit Cutter Relationship Specialty Start Date End Date Ty Amin MD [address] [place] [address] PCP - General Family Medicine 09/20/23 Mckayla Blas NP [address] [place] [address] [facility] 09/07/23 09/05/90 Mckayla Blas NP [address] [place] [address] Nurse Practitioner Family Medicine 09/20/23 Fruit Cutter Relationship Specialty Start Date End Date Ty Amin MD [address] [place] [address] PCP - General Family Medicine 09/20/23 Mckayla Blas NP [address] [place] [address] PCP [facility] 09/07/23 09/05/90 Mckayla Blas NP [address] [place] [address] Nurse Practitioner Family Medicine 09/20/23 Fruit Cutter Relationship Specialty Start Date End Date Ty Amin MD [address] [place] [address] PCP - General Family Medicine 09/20/23 Mckayla Blas NP [address] [place] [address] PCP - [facility] 09/07/23 09/05/90 Mckayla Blas NP [address] [place] [address] Nurse Practitioner Family Medicine 09/20/23 Fruit Cutter Relationship Specialty Start Date End Date Ty Amin MD [address] [place] [address] PCP - General Family Medicine 09/20/23 Mckayla Blas NP [address] [place] [address] PCP - [facility] 09/07/23 09/05/90 Mckayla Blas NP [address] [place] [address] Nurse Practitioner Family Medicine 09/20/23 Fruit Cutter Relationship Specialty Start Date End Date Ty Amin MD [address] [place] [address] PCP - General Family Medicine 09/20/23 Mckayla Blas NP [address] [place] [address] PCP - [facility] 09/07/23 09/05/90 Mckayla Blas NP [address] [place] [address] Nurse Practitioner Family Medicine 09/20/23 Fruit Cutter Relationship Specialty Start Date End Date Ty Amin MD [address] [place] [address] PCP - General Family Medicine 09/20/23 Mckayla Blas NP [address] [place] [address] [facility] 09/07/23 09/05/90 Mckayla Blas NP [address] [place] [address] Nurse Practitioner Family Medicine 09/20/23 Fruit Cutter Relationship Specialty Start Date End Date Ty Amin MD [address] [place] [address] PCP - General Family Medicine 09/20/23 Mckayla Blas NP [address] [place] [address] PCP [facility] 09/07/23 09/05/90 Mckayla Blas NP [address] [place] [address] Nurse Practitioner Family Medicine 09/20/23 Fruit Cutter Relationship Specialty Start Date End Date Ty Amin MD [address] [place] [address] PCP - General Family Medicine 09/20/23 Mckayla Blas NP [address] [place] [address] PCP - [facility] 09/07/23 09/05/90 Mckayla Blas NP [address] [place] [address] Nurse Practitioner Family Medicine 09/20/23 Fruit Cutter Relationship Specialty Start Date End Date Ty Amin MD [address] [place] [address] PCP - General Family Medicine 09/20/23 Mckayla Blas NP [address] [place] [address] PCP - [facility] 09/07/23 09/05/90 Mckayla Blas NP [address] [place] [address] Nurse Practitioner Family Medicine 09/20/23 Fruit Cutter Relationship Specialty Start Date End Date Ty Amin MD [address] [place] [address] PCP - General Family Medicine 09/20/23 Mckayla Blas NP [address] [place] [address] PCP - [facility] 09/07/23 09/05/90 Mckayla Blas NP [address] [place] [address] Nurse Practitioner Family Medicine 09/20/23 Fruit Cutter Relationship Specialty Start Date End Date Ty Amin MD [address] [place] [address] PCP - General Family Medicine 09/20/23 Mckayla Blas NP [address] [place] [address] [facility] 09/07/23 09/05/90 Mckayla Blas NP [address] [place] [address] Nurse Practitioner Family Medicine 09/20/23 Fruit Cutter Relationship Specialty Start Date End Date Ty Amin MD [address] [place] [address] PCP - General Family Medicine 09/20/23 Mckayla Blas NP [address] [place] [address] PCP [facility] 09/07/23 09/05/90 Mckayla Blas NP [address] [place] [address] Nurse Practitioner Family Medicine 09/20/23 Fruit Cutter Relationship Specialty Start Date End Date Ty Amin MD [address] [place] [address] PCP - General Family Medicine 09/20/23 Mckayla Blas NP [address] [place] [address] PCP - [facility] 09/07/23 09/05/90 Mckayla Blas NP [address] [place] [address] Nurse Practitioner Family Medicine 09/20/23 Fruit Cutter Relationship Specialty Start Date End Date Ty Amin MD [address] [place] [address] PCP - General Family Medicine 09/20/23 Mckayla Blas NP [address] [place] [address] PCP - [facility] 09/07/23 09/05/90 Mckayla Blas NP [address] [place] [address] Nurse Practitioner Family Medicine 09/20/23 Fruit Cutter Relationship Specialty Start Date End Date Ty Amin MD [address] [place] [address] PCP - General Family Medicine 09/20/23 Mckayla Blas NP [address] [place] [address] PCP - [facility] 09/07/23 09/05/90 Mckayla Blas NP [address] [place] [address] Nurse Practitioner Family Medicine 09/20/23 Fruit Cutter Relationship Specialty Start Date End Date Ty Amin MD [address] [place] [address] PCP - General Family Medicine 09/20/23 Mckayla Blas NP [address] [place] [address] [facility] 09/07/23 09/05/90 Mckayla Blas NP [address] [place] [address] Nurse Practitioner Family Medicine 09/20/23 Fruit Cutter Relationship Specialty Start Date End Date Ty Amin MD [address] [place] [address] PCP - General Family Medicine 09/20/23 Mckayla Blas NP [address] [place] [address] PCP [facility] 09/07/23 09/05/90 Mckayla Blas NP [address] [place] [address] Nurse Practitioner Family Medicine 09/20/23 Fruit Cutter Relationship Specialty Start Date End Date Ty Amin MD [address] [place] [address] PCP - General Family Medicine 09/20/23 Mckayla Blas NP [address] [place] [address] PCP - [facility] 09/07/23 09/05/90 Mckayla Blas NP [address] [place] [address] Nurse Practitioner Family Medicine 09/20/23 Fruit Cutter Relationship Specialty Start Date End Date Ty Amin MD [address] [place] [address] PCP - General Family Medicine 09/20/23 Mckayla Blas NP [address] [place] [address] Nurse Practitioner Family Medicine 09/20/23 Fruit Cutter Relationship Specialty Start Date End Date Ty Amin MD [address] [place] [address] PCP - General Family Medicine 09/20/23 Mckayla Blas NP [address] [place] [address] Nurse Practitioner Family Medicine 09/20/23 Fruit Cutter Relationship Specialty Start Date End Date Ty Amin MD [address] [place] [address] PCP - General Family Medicine 09/20/23 Mckayla Blas NP [address] [place] [address] Nurse Practitioner Family Medicine 09/20/23 Fruit Cutter Relationship Specialty Start Date End Date Ty Amin MD [address] [place] [address] PCP - General Family Medicine 09/20/23 Mckayla Blas NP [address] [place] [address] Nurse Practitioner Family Medicine 09/20/23 REASON FOR [...] BE BASED ON THE PRIMARY CLINICAL RECORDS. [employer] [facility]. provides no warranty or guarantee of the accuracy or completeness of information in this document.
== END 2025-02-27 11:01 | disposition home or self-care (01) ==
LOC: WC 03-02 08:52
PROVIDERS: PCP Nurse Practitioner; Visit Provider Physician Assistant
DX: I87.311 Chronic venous hypertension (idiopathic) with ulcer of right lower extremity (principal); L97.812 Non-pressure chronic ulcer of other part of right lower leg with fat layer exposed
CPT/HCPCS: 29581

== ENCOUNTER 2025-03-02 11:05 | Outpatient (OUT) | payer MEDICARE, SELFPAY | END 2025-03-02 11:06 | disposition home or self-care (01) | LOC: WC 14:24 | PROVIDERS: PCP Nurse Practitioner; Visit Provider Physician Assistant | DX: I87.311 Chronic venous hypertension (idiopathic) with ulcer of right lower extremity (principal); L97.812 Non-pressure chronic ulcer of other part of right lower leg with fat layer exposed | CPT/HCPCS: 29581 ==

== ENCOUNTER 2025-03-04 13:06 | Outpatient (OUT) | payer MEDICARE, SELFPAY ==
--- OUTSIDE RECORDS SUMMARY | 2024-12-02 05:30 | XMS_ITS ---
Author Organization The [facility] in [place] Address [address] [place] [address] Care Team Providers Care Investment Banker Name Role Phone Mckayla Blas CNP Primary Care Provider Armando Limon Unavailable [phone] REASON FOR VISIT 1YEAR-COPD Encounters Encounter Location Date Provider Diagnosis Pulmonary Medicine [place] [address] [place] [address] 12/02/2024 Armando Yañez Plan Of Treatment No Information Progress Notes * Mitzi MACIAS LDOB:[birth year] (54 yo F)Acc No.[id number]:12/02/2024 UNLOCKED PROGRESS NOTE Follow Up Patient: Mitzi COX Provider: Tray Yañez DO :1970 A ge:54 Y S ex:Female Date:12/02/2024 Address:[address] [place], [place] [address] Pcp:Mckayla Blas CNP Subjective: * Chief Complaints: * 1 . 1YEAR-COPD. * Medical History: Objective: * Vitals: Assessment: Plan: * Treatment: * * Electronic signature of Radha Yañez DO on 03/04/2025 at 01:09 PM EDT Sign off status: Pending Visit Status: N /S N/C (No Show/No Charge) * Provider: Tray Yañez DO Date: 0 12/02/2024 Generated for Vanessa ocampo/Luis/eTransmitting on: 0 03/04/2025 01:09 PM EDT
--- OUTSIDE RECORDS SUMMARY | 2024-12-02 05:47 | XMS_ITS ---
Author Organization The [facility] in [place] Address [address] [place] [address] Care Team Providers Care Business Partner Name Role Phone Mckayla Blas CNP Primary Care Provider Armando Limon [phone] REASON FOR VISIT No Show Appointment Encounters Encounter Location Date Provider Diagnosis Pulmonary Medicine [place] [address] [place] [address] 12/02/2024 Armando Yañez Plan Of Treatment No Information Progress Notes * MACIASMitzi CARPIO LDOB:[birth year] (54 yo F)Acc No.[id number]:12/02/2024 Patient: Mitzi COX :1970 A ge:54 Y S ex:Female Address:[address] [place] [phone] * true * Date: Generated for Vanessa ocampo/Luis/eTransmitting on: 0 03/04/2025 01:09 PM EDT
--- OUTSIDE RECORDS SUMMARY | 2025-03-04 13:08 | XMS_ITS | Encounter Summary ---
Author Organization [facility] Address [address] [place] [address] Care Team Providers Care Charter Boat Operator Name Role Phone Ty Amin MD Primary Care Provider [phone] Ty Amin MD Primary Care Provider [phone] Mckayla Blas VISUAL MERCHANDISING DIRECTOR Unavailable [phone] Mckayla Blas VISUAL MERCHANDISING DIRECTOR Unavailable [phone] Encounter Details Date Type Department Care Team (Late st Contact Info) Description 09/12/2023 Orders Only [facility] [address] [place] [address] Social History Tobacco Use Types Packs/Day Years [...] do you attend chur or uatsdin services? 1 to 4 times [...] Patient Health Questionnaire-2 Score 2 07/10/2023 [facility] [...] Visit [facility] [address] [place] [address] Mckayla Blas, SILVANO [address] [place] [address] 05/28/2025 10:30 AM EST Office Visit [facility] [address] [place] [address] Rain Souza MD [address] [place] [address] 02/01/2026 6:00 PM EDT Office Visit [facility] [address] [place] [address] Mckayla Blas NP [address] [place] [address] documented as of this encounter Procedures Procedure Name Priority Date/Time Associated Diagnosis Comments XR CHEST 1 VIEW Routine 09/11/2023 4:52 PM EST documented in this encounter Results * XR chest 1 view (09/11/2023 4:52 PM EST) Anatomical Region Laterality Modality Chest Radiographic Kalani ging [facility] IMG XR PROCEDURES Final Result documented in this encounter Visit Diagnoses Not on filedocumented in this encounter Care Teams Charter Boat Operator Relationship Specialty Start Date End Date Ty Amin MD PCP - General Family Medicine 01/05/23 09/19/23 Ty Amin MD [address] [place] [address] PCP - General Family Medicine 09/20/23 Mckayla Blas NP [address] [place] [address] PCP - [facility] 09/07/23 01/11/25 Mckayla Blas NP [address] [place] [address] Nurse Practitioner Family Medicine 09/20/23 documented as of this encounter
--- OUTSIDE RECORDS SUMMARY | 2025-03-04 13:08 | XMS_ITS | Encounter Summary ---
Author Organization [facility] Address [address] [place] [address] Care Team Providers Care Pouring Crane Operator Name Role Phone Ty Amin MD Primary Care Provider [phone] Mckayla Blas DIRECTOR OF SPORTS MEDICINE Unavailable [phone] Mckayla Blas DIRECTOR OF SPORTS MEDICINE Unavailable [phone] Encounter Details Date Type Department Care Team (Late st Contact Info) Description 07/14/2024 Orders Only [facility] [address] [place] [address] Mckayla Blas DIRECTOR OF SPORTS MEDICINE [address] [place] [address] Social History Tobacco Use Types Packs/Day Years [...] Recorded Patient Health Questionnaire-2 Score 1 01/17/2024 [facility] - Occupational [...] Office Visit [facility] [address] [place] [address] Mckayla Blas, DIRECTOR OF SPORTS MEDICINE [address] [place] [address] 05/28/2025 10:30 AM EST Office Visit [facility] [address] [place] [address] Rain Souza MD [address] [place] [address] 02/01/2026 6:00 PM EDT Office Visit [facility] [address] [place] [address] Mckayla Blas NP [address] [place] [address] documented as of this encounter Procedures Procedure [...] documented as of this encounter Care Teams Pouring Crane Operator Relationship Specialty Start Date End Date Ty Amin MD [address] [place] [address] PCP - General Family Medicine 09/20/23 Mckayla Blas NP [address] [place] [address] PCP - [facility] 09/07/23 01/11/25 Mckayla Blas NP [address] [place] [address] Nurse Practitioner Family Medicine 09/20/23 documented as of this encounter
--- OUTSIDE RECORDS SUMMARY | 2025-03-04 13:08 | XMS_ITS | Encounter Summary ---
Author Organization [facility] Address [id number] [address] [place] [address] Care Team Providers Care Import Export Manager Name Role Phone JuanjoseMckayla carcamo Krystal PEREZN-HEAD WAITER Primary Care Provider Encounter Details Date Type Department Care Team (Late st Contact Info) Description 05/31/2020 Orders Only [facility] [address] [place] [address] External, Scanning Provider Social History Tobacco Use [...] on filedocumented in this encounter Care Teams Import Export Manager Relationship Specialty Start Date End Date Mckayla Blas, ABATEMENT WORKER-HEAD WAITER [address] [place] [address] PCP - General Nurse Practitioner 09/25/18 documented as of this encounter
--- OUTSIDE RECORDS SUMMARY | 2025-03-04 13:08 | XMS_ITS | Encounter Summary ---
Author Organization [employer] Address [id number] [address] [place] [address] Care Team Providers Care Gear Room Keeper Name Role Phone JuanjoseMckayla carcamo Krystal LOCAL CITY DRIVER-PATIENT REPRESENTATIVE Primary Care Provider Encounter Details Date Type Department Care Team (Late st Contact Info) Description 05/31/2020 Orders Only [facility] [address] [place] [address] External, Scanning Provider Social History Tobacco Use [...] ECG ORDERABLES Final Result Performing Organization Address [facility] Co de Phone Number MANUALLY [...] ECG ORDERABLES Final Result Performing Organization Address [facility] Co de Phone Number MANUALLY TRANSCRIBED RESULTS * Pulmonary function test (10/24/2018) us Scanning Provider External PFT ORDERABLES Final Result Performing Organization Address [facility] Co de Phone Number MANUALLY TRANSCRIBED RESULTS * Nuc stress Lexiscan/Exercise (12/12/2016) Anatomical Region Laterality Modality Chest N/A Nuclear Medicine us Scanning Provider External CV STRESS ORDERABLES Final Result documented in this encounter Visit Diagnoses Not on filedocumented in this encounter Care Teams Gear Room Keeper Relationship Specialty Start Date End Date Mckayla Blas, LOCAL CITY DRIVER-PATIENT REPRESENTATIVE [address] [place] [address] PCP - General Nurse Practitioner 09/25/18 documented as of this encounter
--- OUTSIDE RECORDS SUMMARY | 2025-03-04 13:08 | XMS_ITS | Encounter Summary ---
Author Organization [facility] Address [address] [place] [address] Care Team Providers Care Mold Designer Name Role Phone Ty Amin MD Primary Care Provider [phone] Mckayla Blas MECHANICAL PROCESS ENGINEER Unavailable [phone] Mckayla Blas MECHANICAL PROCESS ENGINEER Unavailable [phone] Encounter Details Date Type Department Care Team (Late st Contact Info) Description 04/14/2024 Orders Only [facility] [address] [place] [address] Mckayla Blas MECHANICAL PROCESS ENGINEER [address] [place] [address] Social History Tobacco Use Types Packs/Day Years [...] often do you attend chur ch or anabaptism services? 1 to 4 times per year [...] Office Visit [facility] [address] [place] [address] Mckayla Blas, MECHANICAL PROCESS ENGINEER [address] [place] [address] 05/28/2025 10:30 AM EST Office Visit [facility] [address] [place] [address] Rain Souza MD [address] [place] [address] 02/01/2026 6:00 PM EDT Office Visit [facility] [address] [place] [address] Mckayla Blas NP [address] [place] [address] documented as of this encounter Procedures Procedure [...] Ankle Right Radiogr aphic Imaging Mckayla Blas MECHANICAL PROCESS ENGINEER IMG XR PROCEDURES Final Result documented in this encounter Visit Diagnoses Not on filedocumented in this encounter Additional Health Concerns Assessment Noted Time PHQ-9 Depression Total Score: 3 01/17/20 10:08 AM EDT documented as of this encounter Care Teams Mold Designer Relationship Specialty Start Date End Date Ty Amin MD [address] [place] [address] PCP - General Family Medicine 09/20/23 Mckayla Blas NP [address] [place] [address] PCP - [facility] 09/07/23 01/11/25 Mckayla Blas NP [address] [place] [address] Nurse Practitioner Family Medicine 09/20/23 documented as of this encounter
--- OUTSIDE RECORDS SUMMARY | 2025-03-04 13:08 | XMS_ITS | Encounter Summary ---
Author Organization [facility] Address [address] [place] [address] Care Team Providers Care K 8 School Principal Name Role Phone Ty Amin MD Primary Care Provider [phone] Mckayla Blas NP Unavailable [phone] Mckayla Blas NP Unavailable [phone] Encounter Details Date Type Department Care Team (Late st Contact Info) Description 05/12/2024 Orders Only [facility] [address] [place] [place] [address] Angela Cochran NP [address] [place] [address] Social History Tobacco Use Types [...] Patient Health Questionnaire-2 Score 1 01/17/2024 [facility] - Occupational Stress Questionnaire Answer Date [...] in a chcf (including now)? No 07/10/2023 Comments Unknown Sex [...] Office Visit [facility] [address] [place] [address] Mckayla Blas NP [address] [place] [address] 05/28/2025 10:30 AM EST Office Visit [facility] [address] [place] [address] Rain Souza MD [address] [place] [address] 02/01/2026 6:00 PM EDT Office Visit [facility] [address] [place] [address] Mckayla Blas NP [address] [place] [address] documented as of this encounter Procedures Procedure [...] documented as of this encounter Care Teams K 8 School Principal Relationship Specialty Start Date End Date Ty Amin MD [address] [place] [address] PCP - General Family Medicine 09/20/23 Mckayla Blas NP [address] [place] [address] PCP - [facility] 09/07/23 01/11/25 Mckayla Blas NP [address] [place] [address] Nurse Practitioner Family Medicine 09/20/23 documented as of this encounter
--- OUTSIDE RECORDS SUMMARY | 2025-03-04 13:08 | XMS_ITS | Encounter Summary ---
Author Organization [facility] Address [address] [place] [address] Care Team Providers Care Assembler Carbon Brushes Name Role Phone Ty Amin MD Primary Care Provider [phone] Mckayla Blas NP Unavailable [phone] Mckayla Blas NP Unavailable [phone] Encounter Details Date Type Department Care [...] you attend chur ch or mormon services? 1 to 4 times [...] Office Visit [facility] [address] [place] [address] Mckayla Blas NP [address] [place] [address] 05/28/2025 10:30 AM EST Office Visit [facility] [address] [place] [address] Rain Souza MD [address] [place] [address] 02/01/2026 6:00 PM EDT Office Visit [facility] [address] [place] [address] Mckayla Blas, SILVANO [address] [place] [address] documented as of this encounter Procedures Procedure Name Priority Date/Time Associated Diagnosis Comments CT ABDOMEN PELVIS W CON 05/12/2024 2:16 PM EST documented in this encounter Results * CT ABDOMEN PELVIS W CON (05/12/2024 2:16 PM EST) Anatomical Region Laterality Modality Other 05/12/2024 2:16 PM EST Narrative 05/12/2024 2:19 [place] [address] CT Scan Report Signed Patient: MITZI MACIAS MR#: [id number] : 1970 Acct:[id number] Age/Sex: 53 / F ADM Date: 05/12/24 Loc: CT Attending Dr: Gaviota MAYERS Ordering Physician: Gaviota Vega Date of Service: 05/12/24 Procedure(s): CT abdomen pelvis w con Accession Number(s): [id number] cc: Mckayla Blas NP [address] [address] Patient Name: MITZI MACIAS MRN: [id number] date: 1970 Sex: F Assigned Patient Location: CT Current Patient Location: Accession/Order Number: [id number] Exam Date: 05/12/2024 11:15 Report Date: 05/12/2024 [...] Signed By: 05/12/24 1419 DD/ 1416 TD/TT: Product Manager Financial Services: Procedure Note Radiology, Radiologist, MD - 05/12/2024 [place] [address] CT Scan Report Signed Patient: MITZI MACIAS LMR#: [id number] : 1970Acct:[id number] Age/Sex: 53 / FADM Date: 05/12/24 Loc: CT Attending Dr: Gaviota MAYERS Ordering Physician: Gaviota Vega Date of Service: 05/12/24 Procedure(s): CT abdomen pelvis w con Accession Number(s): [id number] cc: Mckayla Blas NP [facility] [place] [id number] Patient Name: MITZI MACIAS MRN: [facility]:[id number] date: 1970 Sex: F Assigned Patient Location: CT Current Patient Location: Accession/Order Number: [id number] Exam Date: 05/12/2024 11:15 Report Date: 05/12/2024 [...] DAI Date: 05/12/2024 14:16 Dictated By: Dar Dia M.D. Signed By:05/12/24 1419 DD/ 1416 TD/TT: Product Manager Financial Services: us Generic External Data Provider [facility] Final Result documented in this encounter Visit Diagnoses Not on filedocumented in this encounter Additional Health Concerns Assessment Noted Time PHQ-9 Depression Total Score: 3 01/17/20 24 10:08 AM EDT documented as of this encounter Care Teams Assembler Carbon Brushes Relationship Specialty Start Date End Date Ty Amin MD [address] [place] [address] PCP - General Family Medicine 09/20/23 Mckayla Blas NP [address] [place] [address] PCP - [facility] 09/07/23 01/11/25 Mckayla Blas NP [address] [place] [address] Nurse Practitioner Family Medicine 09/20/23 documented as of this encounter
--- OUTSIDE RECORDS SUMMARY | 2025-03-04 13:08 | XMS_ITS | Encounter Summary ---
Author Organization [facility] Address [address] [place] [address] Care Team Providers Care Box Lining Machine Feeder Name Role Phone Ty Amin MD Primary Care Provider [phone] Mckayla Bals NP Unavailable [phone] Mckayla Blas NP Unavailable [phone] Encounter Details Date Type Department Care [...] often do you attend chur ch or shinto services? 1 to 4 times [...] Patient Health Questionnaire-2 Score 1 01/17/2024 [facility] - [...] Office Visit [facility] [address] [place] [address] Mckayla Blas NP [address] [place] [address] 05/28/2025 10:30 AM EST Office Visit [facility] [address] [place] [address] Rain Souza MD [address] [place] [address] 02/01/2026 6:00 PM EDT Office Visit [facility] [address] [place] [address] Mckayla Blas, SILVANO [address] [place] [address] documented as of this encounter Procedures Procedure Name Priority Date/Time Associated Diagnosis Comments SEGMENTAL BLOOD PRESSURE 04/24/2024 11:20 AM EDT documented in this encounter Results * SEGMENTAL BLOOD PRESSURE (04/24/2024 11:20 AM EDT) Anatomical Region Laterality Modality Radiographic Kalani ging 04/24/2024 11:2 0 AM EDT Narrative 04/24/2024 11:23 [place] [address] Vein Report Signed Patient: SINA MACIAS MR#: [id number] : 1970 Acct:[id number] Age/Sex: 53 / F ADM Date: 04/24/24 Loc: VC Attending Dr: Rafael Gongora Ordering Physician: Rafael Gongora Date of Service: 04/24/24 Procedure(s): VC SEGMENTAL PRESSURES Accession Number(s): [id number] cc: Mckayla Blas DEFENCE FORCE MEMBER OTHER RANKS; Rafael Gongora [place] [address] Patient Name: SINA MACIAS MRN: TBH:[id number] date: 1970 Sex: F Assigned Patient Location: Current Patient Location: Accession/Order Number: [id number] Exam Date: 04/24/2024 10:25 Report Date: 04/24/2024 11:20 At the request of: RAFAEL GONGORA Procedure: VC SEGMENTAL PRESSURES EXAM: VC SEGMENTAL PRESSURES HISTORY: R09.89 COMPARISON: None. FINDINGS: Segmental pressures presented as follows (right, left) in mmHg. Brachial: 169, 166 Upper thigh: Not obtained Lower thigh: 129, 119 Calf: 124, 106 DPA: 108, 105 FIELD ASSESSOR: 100, 91 1st Toe: 124, 142 ISABELLE: [...] Signed By: 04/24/24 1123 DD/ 1120 TD/TT: Supervisor Ski Production: Procedure Note Radiology, Radiologist, MD - 04/24/2024 [place] [address] Vein Report Signed Patient: SINA MACIAS LMR#: [id number] : 1970Acct:[id number] Age/Sex: 53 / FADM Date: 04/24/24 Loc: VC Attending Dr: Rafael Gongora Ordering Physician: Rafael Gongora Date of Service: 04/24/24 Procedure(s): VC SEGMENTAL PRESSURES Accession Number(s): [id number] cc: Mckayla Blas NP; Rafael Gongora The [place] [address] Patient Name: SINA MACIAS MRN: [id number]:[id number] date: 1970 Sex: F Assigned Patient Location: Current Patient Location: VC Accession/Order Number: [id number] Exam Date: 04/24/2024 10:25 Report Date: 04/24/2024 11:20 At the request of: RAFAEL GONGORA Procedure: VC SEGMENTAL PRESSURES EXAM: VC SEGMENTAL PRESSURES HISTORY: R09.89 COMPARISON: None. FINDINGS: Segmental pressures presented as follows (right, left) in mmHg. Brachial: 169, 166 Upper thigh: Not obtained Lower thigh: 129, 119 Calf: 124, 106 DPA: 108, 105 FIELD ASSESSOR: 100, 91 1st Toe: 124, 142 ISABELLE: [...] M.D. Signed By:04/24/24 1123 DD/ 1120 TD/TT: Supervisor Ski Production: us Generic External Data Provider IMG XR PROCEDURES Final Result documented in this encounter Visit Diagnoses Not on filedocumented in this encounter Additional Health Concerns Assessment Noted Time PHQ-9 Depression Total Score: 3 01/17/20 24 10:08 AM EDT documented as of this encounter Care Teams Box Lining Machine Feeder Relationship Specialty Start Date End Date Ty Amin MD [address] [place] [address] PCP - General Family Medicine 09/20/23 Mckayla Blas NP [address] [place] [address] PCP - [facility] 09/07/23 01/11/25 Mckayla Blas NP [address] [place] [address] Nurse Practitioner Family Medicine 09/20/23 documented as of this encounter
--- OUTSIDE RECORDS SUMMARY | 2025-03-04 13:08 | XMS_ITS | Encounter Summary ---
Author Organization [facility] Address [id number] [address] [place] [address] Care Team Providers Care Service Advisor Name Role Phone JuanjoseMckayla carcamo Krystal SHRINKER-TERMINAL MANAGER Primary Care Provider Encounter Details Date Type Department Care Team (Late st Contact Info) Description 06/11/2020 Orders Only [facility] [address] [place] [address] External, Scanning Provider Social History Tobacco Use [...] on filedocumented in this encounter Care Teams Service Advisor Relationship Specialty Start Date End Date Mckayla Blas, SHRINKER-TERMINAL MANAGER [address] [place] [place] [address] PCP - General Nurse Practitioner 09/25/18 documented as of this encounter
--- OUTSIDE RECORDS SUMMARY | 2025-03-04 13:08 | XMS_ITS | Encounter Summary ---
Author Organization [facility] Address [address] [place] [address] Care Team Providers Care Director Talent Name Role Phone Ty Amin MD Primary Care Provider [phone] Ty Amin MD Primary Care Provider [phone] Mckayla Blas PRINTING GREY CLOTH TENDER Unavailable [phone] Mckayla Blas PRINTING GREY CLOTH TENDER Unavailable [phone] Encounter Details Date Type Department Care Team (Late st Contact Info) Description 08/31/2023 Clinisync Result Encounter [facility] External Department Unsolicited Andra Alcala PA [address] [place] [address] [address] [place], [place] [address] Social History Tobacco Use Types Packs/Day Years [...] Recorded Patient Health Questionnaire-2 Score 2 07/10/2023 [facility] - Occupational Stress Questionnaire [...] Office Visit [facility] [address] [place] [address] Mckayla Blas NP [address] [place] [place] [address] 05/28/2025 10:30 AM EST Office Visit [facility] [address] [place] [address] Rain Souza MD [address] [place] [address] 02/01/2026 6:00 PM EDT Office Visit [facility] [address] [place] [address] Mckayla Blas NP [address] [place] [place] [address] documented as of this encounter Procedures Procedure [...] LAB BLOOD ORDERAB LES Final Result [facility] * BLOOD CULTURE 1 (09/10/2023 2:05 PM EST) BLOOD CULTURE 1 Blood Culture 1 NG5D NO GROWTH AT 5 DAYS.^NO GROWTH AT 5 DAYS. TB 09/10/2023 2:05 PM EST 09/10/2023 2:28 PM EST Narrative [facility] - 09/16/2023 1:07 PM EDT Generic External Data Provider LAB BLOOD ORDERAB LES Final [facility] * ECG 12-LEAD (08/31/2023 6:08 PM EST) Anatomical Region Laterality Modality Other 08/31/2023 6:08 PM EST Narrative 09/02/2023 7:32 AM EST [place] [id number] Electrocardiograph Report Signed Patient: MITZI MACIAS MR#: [id number] : 1970 Acct:[id number] Age/Sex: 53 / F ADM Date: 08/31/23 Loc: [place] 214-[address]: Jacqueline Becerra D.O. 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 Signed By: 09/02/23 0732 DD/ 1808 TD/TT: Sales Solutions Representative: Procedure Note Radiology, Radiologist, - 09/02/2023 The [place] [id number] Electrocardiograph Report Signed Patient: MITZI MACIAS R#: [id number] : 1970Acct:[id number] Age/Sex: 53 / FADM Date: 08/31/23 Loc: MS 214-[address]: Jacqueline Becerra D.O. 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 Signed By:09/02/23 0732 DD/ 1808 TD/TT: Sales Solutions Representative: Andra MAYERS [facility] Final Result documented in this encounter Visit Diagnoses Not on filedocumented in this encounter Care Teams Director Talent Relationship Specialty Start Date End Date Ty mAin MD PCP - General Family Medicine 01/05/23 09/19/23 Ty Amin MD [address] [place] [address] PCP - General Family Medicine 09/20/23 Mckayla Blas NP [address] [place] [address] PCP - [facility] 09/07/23 01/11/25 Mckayla Blas NP [address] [place] [address] Nurse Practitioner Family Medicine 09/20/23 documented as of this encounter
--- OUTSIDE RECORDS SUMMARY | 2025-03-04 13:08 | XMS_ITS | Encounter Summary ---
Author Organization [facility] Address [address] [place] [address] Care Team Providers Care Stonecutter Assistant Name Role Phone Ty Amin MD Primary Care Provider [phone] Mckayla Blas QUANTITATIVE DEVELOPER Unavailable [phone] Mckayla Blas QUANTITATIVE DEVELOPER Unavailable [phone] Encounter Details Date Type Department Care Team (Late st Contact Info) Description 01/07/2025 Abstract [facility] [address] [place] [address] Mckayla Blas NP [address] [place] [address] Social History Tobacco Use Types [...] you attend chur ch or alevism services? More than 4 times per year [...] Recorded Patient Health Questionnaire-2 Score 1 01/17/2024 [facility] [...] any time in the [facility] 12 [facility] were you homeless or living in [...] Visit [facility] [address] [place] [address] Mckayla Blas NP [address] [place] [address] 05/28/2025 10:30 AM EST Office Visit [facility] [place] [facility] [address] [place] [address] Rain Souza MD [address] [place] [address] 02/01/2026 6:00 PM EDT Office Visit [facility] [address] [place] [address] Mckayla Blas, SILVANO [address] [place] [address] documented as of this encounter Visit Diagnoses Not on filedocumented in this encounter Additional Health Concerns Assessment Noted Time PHQ-9 Depression Total Score: 3 01/17/20 10:08 AM EDT documented as of this encounter Care Teams Stonecutter Assistant Relationship Specialty Start Date End Date Ty Amin MD [address] [place] [address] PCP - General Family Medicine 09/20/23 Mckayla Blas NP [address] [place] [address] PCP - [facility] 09/07/23 01/11/25 Mckayla Blas NP [address] [place] [address] Nurse Practitioner Family Medicine 09/20/23 documented as of this encounter
--- OUTSIDE RECORDS SUMMARY | 2025-03-04 13:08 | XMS_ITS | Encounter Summary ---
Author [facility] Address [id number] [address] [place] [address] Care Team Providers Care Real Estate Listing Consultant Name Role Phone Mckayla Blas APRN-PICKER/PULLER Primary Care Provider Encounter Details Date Type Department Care Team (Late st Contact Info) Description 05/03/2020 [facility]phone [facility] [address] [place] [address] [address] Romero [address], [address] [id number] Social History Tobacco Use Types Packs/Day Years [...] in this encounter Care Teams Real Estate Listing Consultant Relationship Specialty Start Date End Date Mckayla Blas [place] [address] PCP - General Nurse Practitioner 09/25/18 documented as of this encounter
--- OUTSIDE RECORDS SUMMARY | 2025-03-04 13:08 | XMS_ITS | Encounter Summary ---
Author Organization [facility] Address [address] [place] [address] Care Team Providers Care Prison Officer Name Role Phone Ty Amin MD Primary Care Provider [phone] Mckayla Blas NP Unavailable [phone] Encounter Details Date Type Department Care Team (Late st Contact Info) Description 02/18/2025 Abstract [facility] [address] [place] [address] Mckayla Blas, MARKETING AUTOMATION MANAGER [address] [place] [address] Social History Tobacco Use Types Packs/Day Years [...] week 08/26/2024 How often do you attend [facility] or orthodox services? More than 4 times per year [...] Office Visit [facility] [address] [place] [address] Mckayla Blas NP [address] [place] [address] 05/28/2025 10:30 AM EST Office Visit [facility] [address] [place] [address] Rain Souza MD [address] [place] [address] 02/01/2026 6:00 PM EDT Office Visit [facility] [address] [place] [address] Mckayla Blas NP [address] [place] [address] documented as of this encounter Visit Diagnoses Not on filedocumented in this encounter Additional Health Concerns Assessment Noted Time PHQ-9 Depression Total Score: 3 01/17/20 24 10:08 AM EDT documented as of this encounter Care Teams Prison Officer Relationship Specialty Start Date End Date Ty Amin MD [address] [place] [address] PCP - General Family Medicine 09/20/23 Mckayla Blas NP [address] [place] [address] Nurse Practitioner Family Medicine 09/20/23 documented as of this encounter
--- OUTSIDE RECORDS SUMMARY | 2025-03-04 13:08 | XMS_ITS | Encounter Summary ---
Author Organization [facility] Address [address] [place] [address] Care Team Providers Care Police Pilot Name Role Phone Ty Amin MD Primary Care Provider [phone] Mckayla Blas NP Unavailable [phone] Mckayla Blas NP Unavailable [phone] Encounter Details Date Type Department Care [...] Office Visit [facility] [address] [place] [address] Mckayla Blas NP [address] [place] [address] 05/28/2025 10:30 AM EST Office Visit [facility] [facility] [address] [place] [address] Rain Souza MD [address] [place] [address] 02/01/2026 6:00 PM EDT Office Visit [facility] [address] [place] [address] Mckayla Blas, SILVANO [address] [place] [address] documented as of this encounter Procedures Procedure Name Priority Date/Time Associated Diagnosis Comments MR LUMBAR SPINE WO CON 05/12/2024 2:41 PM EST documented in this encounter Results * MR LUMBAR SPINE WO CON (05/12/2024 2:41 PM EST) Anatomical Region Laterality Modality Other 05/12/2024 2:41 PM EST Narrative 05/12/2024 2:43 [place] [address] Magnetic Resonance Report Signed Patient: MITZI MACIAS MR#: [id number] : 1970 Acct:[id number] Age/Sex: 53 / F ADM Date: 05/12/24 Loc: MRI Attending Dr: Celestina Chin NP Ordering Physician: Celestina Chin NP Date of Service: 05/12/24 Procedure(s): MR lumbar spine wo con Accession Number(s): [id number] cc: Mckayla Blas WOOD CRAFTER; Celestina Chin NP [place] [id number] Patient Name: MITZI MACIAS MRN: [id number] date: 1970 Sex: F Assigned Patient Location: MRI Current Patient Location: CT Accession/Order Number: [id number] Exam Date: 05/12/2024 09:21 Report Date: 05/12/2024 [...] Signed By: 05/12/24 1443 DD/ 1441 TD/TT: Assembler [place]ches And [place]: Procedure Note Radiology, Radiologist, MD - 05/12/2024 [place] [address] Magnetic Resonance Report Signed Patient: MITZI MACIAS R#: [id number] : 1970Acct:[id number] Age/Sex: 53 / FADM Date: 05/12/24 Loc: MRI Attending Dr: Celestina Chin NP Ordering Physician: Celestina Chin NP Date of Service: 05/12/24 Procedure(s): MR lumbar spine wo con Accession Number(s): [id number] cc: Mckayla Blas NP; Celestina Chin NP The [address] [address] Patient Name: MITZI MACIAS MRN: [facility]:[id number] date: 1970 Sex: F Assigned Patient Location: MRI Current Patient Location: CT Accession/Order Number: [id number] Exam Date: 05/12/2024 09:21 Report Date: 05/12/2024 [...] M.D. Signed By:05/12/24 1443 DD/ 1441 TD/TT: Assembler [place]: us Generic External Data Provider [facility] Final Result documented in this encounter Visit Diagnoses Not on filedocumented in this encounter Additional Health Concerns Assessment Noted Time PHQ-9 Depression Total Score: 3 01/17/20 24 10:08 AM EDT documented as of this encounter Care Teams Police Pilot Relationship Specialty Start Date End Date Ty Amin MD [address] [place] [address] PCP - General Family Medicine 09/20/23 Mckayla Blas NP [address] [place] [address] PCP - [facility] 09/07/23 01/11/25 Mckayla Blas NP [address] [place] [address] Nurse Practitioner Family Medicine 09/20/23 documented as of this encounter
--- OUTSIDE RECORDS SUMMARY | 2025-03-04 13:09 | XMS_ITS | Encounter Summary ---
Author Organization [facility] Address [address] [place] [address] Care Team Providers Care Forensic Examiner Name Role Phone Ty Amin MD Primary Care Provider [phone] Mckayla Blas PRODUCTION SOLDERER Unavailable [phone] Mckayla Blas PRODUCTION SOLDERER Unavailable [phone] Encounter Details Date Type Department Care Team (Late st Contact Info) Description 01/07/2025 Abstract [facility] [address] [place] [address] Mckayla Blas NP [address] [place] [address] Social History Tobacco Use [...] often do you attend chur ch or druze services? More than 4 times per year [...] in the past 12 m [facility], were you homeless or living in a [...] Visit [facility] [address] [place] [address] Mckayla Blas NP [address] [place] [address] 05/28/2025 10:30 AM EST Office Visit [facility] [address] [place] [address] Rain Souza MD [address] [place] [address] 02/01/2026 6:00 PM EDT Office Visit [facility] [address] [place] [address] Mckayla Blas, SILVANO [address] [place] [address] documented as of this encounter Visit Diagnoses Not on filedocumented in this encounter Additional Health Concerns Assessment Noted Time PHQ-9 Depression Total Score: 3 01/17/20 10:08 AM EDT documented as of this encounter Care Teams Forensic Examiner Relationship Specialty Start Date End Date Ty Amin MD [address] [place] [address] PCP - General Family Medicine 09/20/23 Mckayla Blas NP [address] [place] [address] PCP - [facility] 09/07/23 01/11/25 Mckayla Blas NP [address] [place] [address] Nurse Practitioner Family Medicine 09/20/23 documented as of this encounter
--- OUTSIDE RECORDS SUMMARY | 2025-03-04 13:10 | XMS_ITS | Encounter Summary ---
Author Organization [facility] Address [address] [place] [address] Care Team Providers Care Project Engineer Name Role Phone Ty Amin MD Primary Care Provider [phone] Mckayla Blas NP Unavailable Reason for Visit * Reason Onset Date Comments Med Refill 02/27/2025 Encounter Details Date Type Department Care Team (Late st Contact Info) Description 02/27/2025 Refill [facility] [address] [place] [address] Amber Pinzon LPN Type 2 diabetes mellitus [...] How often do you attend chur or church services? More than 4 times per year [...] Patient Health Questionnaire-2 Score 0 01/26/2025 [facility]at [...] in the past 12 m [facility], were you homeless or living in [...] Visit [facility] [address] [place] [address] Mckayla Blas NP [address] [place] [address] 05/28/2025 10:30 AM EST Office Visit [facility] [place] [facility] [address] [place] [address] Rain Souza MD [address] [place] [address] 02/01/2026 6:00 PM EDT Office Visit [facility] [address] [place] [address] Mckayla Blas NP [address] [place] [address] documented as of this encounter Visit Diagnoses Diagnosis Type 2 diabetes mellitus with other circulatory complications (HCC) documented in this encounter Additional Health Concerns Assessment Noted Time PHQ-9 Depression Total Score: 3 01/17/20 10:08 AM EDT documented as of this encounter Care Teams Project Engineer Relationship Specialty Start Date End Date Ty Amin MD [address] [place] [address] PCP - General Family Medicine 09/20/23 Mckayla Blas NP [address] [place] [address] Nurse Practitioner Family Medicine 09/20/23 documented as of this encounter
--- OUTSIDE RECORDS SUMMARY | 2025-03-04 13:10 | XMS_ITS | Encounter Summary ---
Author Organization [facility] Address [address] [place] [address] Care Team Providers Care Patient Registrar Name Role Phone Ty Amin MD Primary Care Provider [phone] Mckayla Blas DIRECTOR BEHAVIORAL HEALTH Unavailable [phone] Mckayla Blas NP Unavailable [phone] Encounter Details Date Type Department Care Team (Late st Contact Info) Description 12/17/2023 Orders Only [facility] [address] [place] [address] Mckayla Blas NP [address] [place] [address] Social History Tobacco Use Types Packs/Day Years [...] Recorded Patient Health Questionnaire-2 Score 0 11/01/2023 [facility] Occupat ional Health - [...] Office Visit [facility] [address] [place] [address] Mckayla Blas NP [address] [place] [address] 05/28/2025 10:30 AM EST Office Visit [facility] [place] [facility] [address] [place] [phone] Rain Souza MD [address] [place] [address] 02/01/2026 6:00 PM EDT Office Visit [facility] [address] [place] [address] Mckayla Blas NP [address] [place] [address] documented as of this encounter Procedures Procedure [...] on filedocumented in this encounter Care Teams Patient Registrar Relationship Specialty Start Date End Date Ty Amin MD [address] [place] [address] PCP - General Family Medicine 09/20/23 Mckayla Blas NP [address] [place] [address] PCP - [facility] 09/07/23 01/11/25 Mckayla Blas NP [address] [place] [address] Nurse Practitioner Family Medicine 09/20/23 documented as of this encounter
--- OUTSIDE RECORDS SUMMARY | 2025-03-04 13:10 | XMS_ITS | Clinical Summary ---
Author Organization [facility] Address [address] [place] [address] Care Team Providers Care Mobile Manager Name Role Phone Ty Amin MD Primary Care Provider [phone] Mckayla Blas NP Unavailable [phone] Allergies No known active allergies Medications [...] if needed for wheezing Active HYDROcodone-acet aminophen ([place]) 5-325 MG tablet 1 tablet as needed [...] 025 Active ergocalciferol (Vitamin D2) 1.25 MG (00165 UT) capsuleIndicatio ns:Vitamin D deficiency, unspecified Take [...] hyperglycemia, with long-term current use of insulin ([facility]) Inject 58 Units under the skin in the morning and 58 Units before bedtime. 104.4 mL 1 025 2025 Active insulin glargine (Lantus SoloStar) 100 UNIT/ML penIndications:T ype 2 diabetes mellitus with hyperglycemia, with long-term current use of insulin ([facility]) INJECT 58 UNITS SUBCUTANEOUSLY TWICE A DAY 105 mL 2 025 Active Tirzepatide (Mounjaro) 15 MG/0.5ML solution auto-injectorInd ications:Type 2 diabetes mellitus with other circulatory complications (HCC) Inject 15 mg under the skin 1 (one) time per week 6 mL 1 025 Active Tirzepatide (Mounjaro) 15 MG/0.5ML solution auto-injectorInd ications:Type 2 diabetes mellitus with other circulatory complications ([facility]) INJECT 15MG SUBCUTANEOUSLY ONCE A WEEK 6 [...] wrapped, 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 as possible [facility] current use of inhaled steroid 025 Non-pressure [...] see if helps Encounter for subsequent [facility] wellness visit (AWV) in Medicare patient 01/17/2024 [...] can try ubrelvy #3 samples given: Lot [id number], exp 03/2025 Mixed incontinence 11/14/2023 Arthritis 11/14/2023 [...] is necessary they take over prescribing Pancreatitis ([facility]) 09/17/2023 COPD exacerbation 09/17/2023 Assessment [...] 11:17 AM EDT): Open wounds refer to [facility] Wound Care Pulmonary hypertension 09/17/2023 Assessment & Plan (01/26/2025 7:52 AM EDT): Has seen [email or web address] Cardiology Assessment & Plan (12/09/2024 7:23 AM EDT): Has seen [facility] [[email or web address]] Cardiology Assessment & Plan (11/15/2023 3:49 PM EDT): Saw [facility] [[email or web address] Cardiology See notes Going to see Pulmonary Assessment & Plan (09/27/2023 1:03 PM EDT): Needs to wear her PAP I am also going to have her see [facility] [[email or web address]] Cardiology as well PAD (peripheral artery disease) [...] spiriva Will trial breztri: #2 samples given [id number], exp 03/03, rinse mouth after use Give [...] PM EDT): Current meds: albuterol, duoneb, Has linseed oil temperer 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 Assessment & Plan (08/27/2024 7:30 AM EST): Current meds: albuterol, duoneb, Has linseed oil temperer 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 Assessment & Plan (01/17/2024 [...] lost script I did contact [facility] [place], they will get another fill on this [...] of the risks of continued smoking: stroke, [place], all forms of cancer, lung disease, and [...] of the risks of continued smoking: stroke, [place], all forms of cancer, lung disease, and [...] [facility] [address] [place] [address] Amber Pinzon LPN Type 2 diabetes mellitus with other circulatory complications (HCC) 02/26/2025 Refill [facility] [address] [place] [address] Rain Odonnell MD Type 2 diabetes mellitus with other circulatory complications (HCC) 02/18/2025 Abstract [facility] [address] [facility] [place] [address] Mckayla Blsa NP 02/14/2025 Refill [facility] [address] [place] [address] Rain Odonnell MD Type 2 diabetes mellitus with hyperglycemia, with long-term current use of insulin ([facility]) 01/29/2025 9:40 AM EDT Office Visit [facility] [address] [place] [address] Rain Odonnell MD Encounter for dietary consultation (Primary Dx); Type 2 diabetes mellitus with hyperglycemia, with long-term current use of insulin ([facility]); Vitamin D deficiency; Primary hypertension ; Insulin long-term use ([facility]); Hyperlipemia, mixed ; Microalbuminuria; Class 3 severe obesity due to excess calories with serious comorbidity and body mass index (BMI) of 50.0 to 59.9 in adult ([facility] 01/29/2025 Clinisync Result Encounter [facility] External Department Unsolicited Provider, Generic External Data 01/29/2025 Bamboo flowsheet [facility] [address] [place] [address] Rain Odonnell MD 01/26/2025 6:00 PM EDT Office Visit [facility] [address] [place] [address] Mckayla Blas NP Encounter for subsequent annual wellness visit (AWV) in Medicare patient (Primary Dx); Mixed hyperlipidemia ; Type 2 diabetes mellitus with complication, with long-term current use of insulin ([facility]); Bilateral lower extremity edema; Gastro-esophageal reflux disease without esophagitis; Chronic diastolic heart failure ([facility]); Primary hypertension ; Pulmonary hypertension ([facility]); Diabetic polyneuropathy associated with type 2 diabetes mellitus ([facility]); Pulmonary emphysema, unspecified emphysema type (HCC); Moderate persistent asthma without complication ([facility]); Insomnia; Non-seasonal allergic rhinitis, unspecified trigger; Type 2 diabetes mellitus with unspecified complications ([facility]); Anxiety and depression ; Antibiotic-induced yeast infection; Chronic obstructive pulmonary disease, unspecified (HCC); Hyperlipidemia, unspecified ; Vaginal yeast infection; Morbid (severe) obesity due to excess calories ([facility]) 01/26/2025 Bamboo flowsheet [facility] [address] [place] [address] Mckayla Blas NP 01/19/2025 Travel 01/16/2025 Refill [facility] [address] [place] [address] Amber Pinzon LPN Vitamin D deficiency, unspecified 01/07/2025 Abstract [facility] [address] [place] [address] Mckayla Blas NP 01/07/2025 Abstract [facility] [address] [place] [address] Mckayla Blas NP 12/18/2024 Refill [facility] [address] [place] [address] Mckayla Blas NP Hyperlipidemia, unspecified ; Tobacco user; Encounter for smoking cessation counseling 12/17/2024 Telephone [facility] [address] [place] [address] Mckayla Blas NP Error (VOID this visit) 12/09/2024 10:00 AM EDT Office Visit [facility] [address] [place] [address] Mckayla Blas NP Cellulitis of left lower extremity (Primary Dx); COPD exacerbation (HCC); Primary hypertension ; Pulmonary hypertension (HCC); Morbid (severe) obesity due to excess calories ([facility]); Type 2 diabetes mellitus with complication, with long-term current use of insulin (HCC); Anxiety and depression ; Fever, unspecified fever cause 12/09/2024 Bamboo flowsheet [facility] [address] [place] [address] Mckayla Blas NP 12/08/2024 Travel 12/04/2024 Clinisync Result Encounter [facility] External Department Unsolicited Provider, Generic External Data from Last 3 Months Immunizations Immunization Administration Dates Next Due Influenza Whole 05/02/2013 Influenza, [id number] 04/16/2017,05/10/2016 Influenza, Unspecified 05/18/2023,04/16/2017,08/2015 Influenza, injectable, quadrivalent [...] often do you attend chur ch or bahai services? More than 4 times per year [...] Recorded Patient Health Questionnaire-2 Score 0 01/26/2025 [facility] [...] in the past 12 m [facility], were you homeless or [...] [facility] [address] [place] [address] Mckayla Blas, WEB SERVICES PROFESSIONAL [address] [place] [address] 05/28/2025 10:30 AM EST Office Visit [facility] [address] [place] [address] Rain Odonnell MD [address] [place] [address] 02/01/2026 6:00 PM EDT Office Visit [facility] [address] [place] [address] Mckayla Blas, WEB SERVICES PROFESSIONAL [address] [place] [address] Health Maintenance Due Date Last Done Comments [...] EDT Narrative 01/29/2025 6:40 [place] [address] Cardiology Report Signed Patient: SINA MACIAS MR#: [id number] : 1970 Acct:[id number] Age/Sex: 54 / F ADM Date: 01/29/25 Loc: CARD Attending Dr: AMI ORO APRN Ordering Physician: AMI ORO APRN Date of Service: 01/29/25 Procedure(s): CA echo doppler complete Accession Number(s): [id number] cc: Mckayla Blas WEB SERVICES PROFESSIONAL; AMI ORO APRN Patient Name: SINA MACIAS MR#: [id number] : 1970 Exam Date: 01/29/2025 Ordering Doctor: AMI ORO [facility] ECHOCARDIOGRAM REPORT PROCEDURE: CA ECHO DOPPLER COMPLETE [...] AGUILAR Signed By: 01/29/251839 DD/ 39 TD/TT: Snowboard Designer: Procedure Note Radiology, Radiologist, MD - 01/29/2025 [place] [address] Cardiology Report Signed Patient: SINA MACIAS LMR#: [id number] : 1970Acct:[id number] Age/Sex: 54 / FADM Date: 01/29/25 Loc: CARD Attending Dr: AMI ORO APRN Ordering Physician: AMI ORO APRN Date of Service: 01/29/25 Procedure(s): CA echo doppler complete Accession Number(s): [id number] cc: Mckayla Blas WEB SERVICES PROFESSIONAL; AMI ORO APRN Patient Name: SINA MACIAS MR#: [id number] : 1970 Exam Date: 01/29/2025 Ordering Doctor: [...] BHARAT AGUILAR Signed By:01/29/251839 DD/ 39 TD/TT: Snowboard Designer: us Generic External Data Provider [facility] [...] LAB BLOOD ORDERAB LES Final Result [facility] * BLOOD CULTURE 1 (12/04/2024 4:44 PM EDT) BLOOD CULTURE 1 Blood Culture 1 NG5D NO GROWTH AT 5 DAYS.^NO GROWTH AT 5 DAYS. [facility] 12/04/2024 4:44 PM EDT 12/04/2024 5:17 [...] AM EDT Narrative 12/14/2023 11:22 [place] [address] Mammography Report Signed Patient: SINA MACIAS MR#: [id number] : 1970 Acct:[id number] Age/Sex: 53 / F ADM Date: 12/13/23 Loc: MAMMO Attending Dr: Mckayla Blas NP Ordering Physician: Mckayla Blas NP Results: Date of Service: 12/13/23 Follow Up: Procedure(s): MM tomosynthesis screening BI Accession Number(s): [id number] cc: Mckayla Blas NP Patient Name: SINA MACIAS MR#: [id number] : 1970 Exam Date: 12/13/2023 Ordering Doctor: [...] LOCATION: [facility] BREAST COMPOSITION: The breasts are almost entirely [...] on 12/14/2023 at 11:21 Dictated By: Noel Ivna M.D. Signed By: 12/14/23 1122 DD/ 1121 TD/TT: Snowboard Designer: Procedure Note Radiology, Radiologist, MD - 12/14/2023 [place] [address] Mammography Report Signed Patient: SINA MACIAS LMR#: [id number] : 1970Acct:[id number] Age/Sex: 53 / FADM Date: 12/13/23 Loc: MAMMO Attending Dr: Mckayla Blas NP Ordering Physician: Mckayla Blas NPResults: Date of Service: 12/13/23Follow Up: Procedure(s): MM tomosynthesis screening BI Accession Number(s): [id number] cc: Mckayla Blas NP Patient Name: SINA MACIAS MR#: [id number] : 1970 Exam Date: 12/13/2023 Ordering Doctor: [...] LOCATION: [facility] BREAST COMPOSITION: The breasts are almost entirely [...] M.D. Signed By:12/14/23 1122 DD/ 1121 TD/TT: Snowboard Designer: Mckayla Blas NP [facility] Final Result from Last 3 Months or Most Recently Relevant to Health Maintenance Insurance MEDICARE [facility] Care Teams Mobile Manager Relationship Specialty Start Date End Date Ty Amin MD [address] [place] [address] PCP - General Family Medicine 09/20/23 Mckayla Blas NP [address] [place] [address] Nurse Practitioner Family Medicine 09/20/23
--- OUTSIDE RECORDS SUMMARY | 2025-03-04 13:10 | XMS_ITS | Encounter Summary ---
Author Organization [facility] Address [address] [place] [address] Care Team Providers Care Executive Vice President Business Development Name Role Phone Mckayla Blas MD Primary Care Provider [phone] Encounter Details Date Type Department Care Team (Late st Contact Info) Description 02/04/2025 Results Follow-Up Cardiology [address] [place] [address] Karma Chatterjee CNP [address] [facility] [place] [address] Complete Echo (TTE) w/wo Imaging [...] on filedocumented in this encounter Care Teams Executive Vice President Business Development Relationship Specialty Start Date End Date Mckayla Blas MD [address] [place] [address] PCP - General Nurse Practitioner 11/13/23 documented as of this encounter
--- OUTSIDE RECORDS SUMMARY | 2025-03-04 13:10 | XMS_ITS | Encounter Summary ---
Author Organization [facility] Address [address] [place] [address] Care Team Providers Care Confectionery Cooker Name Role Phone Ty Amin MD Primary Care Provider [phone] Ty Amin MD Primary Care Provider [phone] Mckayla Blas INFORMATION SYSTEMS ANALYST Unavailable [phone] Mckayla Blas INFORMATION SYSTEMS ANALYST Unavailable [phone] Encounter Details Date Type Department Care Team (Late st Contact Info) Description 07/08/2023 Abstract [facility] [address] [place] [address] Mckayla Blas NP [address] [place] [address] Social History Tobacco Use Types Packs/Day Years [...] Patient Health Questionnaire-2 Score 2 07/10/2023 [facility] [...] Visit [facility] [address] [place] [address] Mckayla Blas, SILVANO [address] [place] [address] 05/28/2025 10:30 AM EST Office Visit [facility] [address] [place] [address] Rain Souza MD [address] [place] [address] 02/01/2026 6:00 PM EDT Office Visit [facility] [address] [place] [address] Mckayla Blas NP [address] [place] [address] documented as of this encounter Visit Diagnoses Not on filedocumented in this encounter Care Teams Confectionery Cooker Relationship Specialty Start Date End Date Ty Amin MD PCP - General Family Medicine 01/05/23 09/19/23 Ty Amin MD [address] [place] [address] PCP - General Family Medicine 09/20/23 Mckayla Blas NP [address] [place] [address] PCP - [facility] 09/07/23 01/11/25 Mckayla Blas NP [address] [place] [address] Nurse Practitioner Family Medicine 09/20/23 documented as of this encounter
--- OUTSIDE RECORDS SUMMARY | 2025-03-04 13:10 | XMS_ITS | Encounter Summary ---
Author Organization [facility] Address [address] [place] [address] Care Team Providers Care Gaming Cage Cashier Name Role Phone Ty Amin MD Primary Care Provider [phone] Mckayla Blas HEALTHCARE PROF Unavailable [phone] Mckayla Blas NP Unavailable [phone] Encounter Details Date Type Department Care Team (Late st Contact Info) Description 12/14/2023 Clinisync Result Encounter [facility] External Department Unsolicited Mckayla Blas NP [address] [place] [address] Social History Tobacco Use Types Packs/Day Years [...] How often do you attend chur or congregation services? 1 to 4 times per year [...] Recorded Patient Health Questionnaire-2 Score 0 11/01/2023 [facility] - Occupational Stress Questionnaire Answer [...] Visit [facility] [address] [place] [address] Mckayla Blas, SILVANO [address] [place] [address] 05/28/2025 10:30 AM EST Office Visit [facility] [address] [place] [address] Rain Souza MD [address] [place] [address] 02/01/2026 6:00 PM EDT Office Visit [facility] [address] [place] [address] Mckayla Blas NP [address] [place] [address] documented as of this encounter Procedures Procedure Name Priority Date/Time Associated Diagnosis Comments MM TOMOSYNTHESIS SCREENING BI 12/14/2023 11:21 AM EDT documented in this encounter Results * MM TOMOSYNTHESIS SCREENING BI (12/14/2023 11:21 AM EDT) Anatomical Region Laterality Modality Other 12/14/2023 11:2 1 AM EDT Narrative 12/14/2023 11:22 [place] [address] Mammography Report Signed Patient: SINA MACIAS MR#: [id number] : 1970 Acct:[id number] Age/Sex: 53 / F ADM Date: 12/13/23 Loc: MAMMO Attending Dr: Mckayla Blas NP Ordering Physician: Mckayla Blas NP Results: Date of Service: 12/13/23 Follow Up: Procedure(s): MM tomosynthesis screening BI Accession Number(s): [id number] cc: Mckayla Blas NP Patient Name: SINA MACIAS MR#: [id number] : 1970 Exam Date: 12/13/2023 Ordering Doctor: [...] unknown cancer at age 75. LOCATION: The [facility] BREAST COMPOSITION: The breasts are almost entirely [...] Signed By: 12/14/23 1122 DD/ 1121 TD/TT: Inspector And Tester: Procedure Note Radiology, Radiologist, MD - 12/14/2023 [place] [address] Mammography Report Signed Patient: SINA MACIAS LMR#: [id number] : 1970Acct:[id number] Age/Sex: 53 / FADM Date: 12/13/23 Loc: MAMMO Attending Dr: Mckayla Blas NP Ordering Physician: Mckayla Blas NPResults: Date of Service: 12/13/23Follow Up: Procedure(s): MM tomosynthesis screening BI Accession Number(s): [id number] cc: Mckayla Blas NP Patient Name: SINA MACIAS MR#: [id number] : 1970 Exam Date: 12/13/2023 Ordering Doctor: SAYDA Blas PHARMACOVIGILANCE SCIENTIST RADIOLOGY REPORT PROCEDURE: MM TOMOSYNTHESIS SCREENING BI [...] unknown cancer at age 75. LOCATION: The [facility] BREAST COMPOSITION: The breasts are almost entirely [...] M.D. Signed By:12/14/23 1122 DD/ 1121 TD/TT: Inspector And Tester: us Mckayla Blas NP [facility] Final Result documented in this encounter Visit Diagnoses Not on filedocumented in this encounter Care Teams Gaming Cage Cashier Relationship Specialty Start Date End Date Ty Amin MD [address] [place] [address] PCP - General Family Medicine 09/20/23 Mckayla Blas NP [address] [place] [address] PCP - [facility] 09/07/23 01/11/25 Mckayla Blas NP [address] [place] [address] Nurse Practitioner Family Medicine 09/20/23 documented as of this encounter
--- OUTSIDE RECORDS SUMMARY | 2025-03-04 13:10 | XMS_ITS | Clinical Summary ---
Author Organization [facility] Address [id number] [address] [place] [address] Care Team Providers Care Rn Plasma Center Name Role Phone Wan Mckayla Krystal PEREZN-RAIL CAR REPAIRMAN Primary Care Provider Allergies No known active [...] Medical Devices Not on file Insurance [place]ICAID [place] [employer] MEDICARE Care Teams Rn Plasma Center Relationship Specialty Start Date End Date Mckayla Blas APRN-RAIL CAR REPAIRMAN [address] [place] [address] PCP - General Nurse Practitioner 09/25/18
--- OUTSIDE RECORDS SUMMARY | 2025-03-04 13:10 | XMS_ITS | Patient Health Record ---
Author Organization [facility] [place] Address [address] [place] [address] Care Team Providers Care Assessment Services Manager Name Role Phone Mckayla Blas CNP Primary Care Provider Unavail able Armando Yañez Unavailable [phone] Allergies No Known Allergies Results Component Value Reference Range Notes PROF CHEM 8 (BAS METB) (Not yet reviewed by provider) Interpretation: Performing Lab: Notes/Report: [facility] , Sodium 142 136-145 mmol/L Potassium [...] Performing Lab: see note ML - [facility] VC SEGMENTAL PRESSURES (Not yet reviewed by provider) Interpretation: Performing Lab: Notes/Report: Source Facility: [facility]-[address] [place] [address] [place] [address] Vein Report Signed Patient: MITZI MACIAS MR#: [id number] : 1970 Acct:[id number] Age/Sex: 53 / F ADM Date: 04/24/24 Loc: VC Attending Dr: Rafael Gongora Ordering Physician: Rafael Gongora Date of Service: 04/24/24 Procedure(s): VC SEGMENTAL PRESSURES Accession Number(s): [id number] cc: Mckayla Blas NP; Rafael Gongora [facility] [place] [id number] Patient Name: MITZI MACIAS MRN: [facility]:[id number] date: 1970 Sex: F Assigned Patient Location: Current Patient Location: VC Accession/Order Number: [id number] Exam Date: 04/24/2024 10:25 Report Date: 04/24/2024 11:20 At the request of: RAFAEL GONGORA Procedure: VC SEGMENTAL PRESSURES EXAM: VC SEGMENTAL PRESSURES HISTORY: R09.89 COMPARISON: None. FINDINGS: Segmental pressures presented as follows (right, left) in mmHg. Brachial: 169, 166 Upper thigh: Not obtained Lower thigh: 129, 119 Calf: 124, 106 DPA: 108, 105 CRYPTOLOGIC TECHNICIAN TECHNICAL: 100, 91 1st Toe: 124, 142 ISABELLE: [...] Signed By: 04/24/24 1123 DD/ 1120 TD/TT: Clinical Recruiter: [place] [address] Vein Report Signed Patient: BARBY MACIAS MR#: [id number] : 1970 Acct:[id number] Age/Sex: 53 / F ADM Date: 04/24/24 Loc: VC Attending Dr: Nanci Gongora Ordering Physician: Rafael Gongora Date of Service: 04/24/24 Procedure(s): VC SEGMENTAL PRESSURES Accession Number(s): [id number] cc: Mckayla Blas NP ; Rafael Gongora [facility] [place] [address] Patient Name: MITZI MACIAS MRN: [id number] date: 1970 Sex: F Assigned Patient Location: VC Current Patient Location: VC Accession/Order Numb er: [id number] Exam Date: 10:25 Report Date: 04/24/2024 11:20 At the request of: RAFAEL GONGORA Procedure: VC SEGMEN KARY PRESSURES EXAM: VC SEGMENTAL PRESSURES HISTORY: R09.89 COMPARISON: None. FINDINGS: Segmental pressures presented as follows (right, left) in mmHg. Brachial: 169, 166 Upper thigh: Not obtained Lower thigh: 129, 119 Calf: 124, 106 DPA: 108, 105 CRYPTOLOGIC TECHNICIAN TECHNICAL: 100, 91 1st Toe: 124, 142 ISABELLE: [...] Signed By: 04/24/24 1123 DD/ 1120 TD/TT: Clinical Recruiter: CBC AUTO DIFF (Not yet revie wed by provider) Interpretation: Performing Lab: Notes/Report: [facility] , White Blood Count 12.8 4.0-11.0 [...] Performing Lab: see note ML - [facility] Reason For Referral No Information Medications [...] Days Active Vitamin D (Ergocalciferol) 1.25 MG (70846 UT) Oral for 90 Days Activ e Breztri Aerosphere 160-9-4.8 MCG/ACT Inhalation for 30 Days Active Simvastatin 10 MG Oral for 90 Days Active Roflumilast 250 MCG Oral for 28 Days Active Immunizations Vaccine Route Administration Date Status Comme nts Flu, Fluzone (54267) 6-35mo, multi-dose vial (8237-3016) Unknown 05/18/2023 Administered Pneumococcal (Pneumovax 23) Unknown [...] ulcer due to type 2 diabetes mellitus (1652093098483) Type 2 diabetes mellitus with foot ulcer (E11.621) Active confirmed Problem 975997130 Morbid (severe) obesity due to excess calories (E66.01) Active confirmed Problem Venous ulcer of lower extremity due to chronic peripheral venous hypertension (269328810512413) Chronic venous hypertension (idiopathic) with ulcer of left lower extremity (I87.312) Active confirmed Problem Chronic non-pressure ulcer of calf extending to fat level (3426680805203410 1) Non-pressure chronic ulcer of other part of right lower leg with fat layer exposed (L97.812) Active confirmed Problem Chronic ulcer of skin of lower leg (disorder) (8025642288094805 4) Non-pressure chronic ulcer of other part of left lower leg limited to breakdown of skin (L97.821) Active confirmed Problem 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 exposed (L97.822) Active confirmed Problem Long-term current use of inhaled steroid (231485525) skilled nursing (current) use of inhaled steroids (Z79.51) Active confirmed Problem COPD - Chronic obstructive pulmonary disease (90836341) COPD (chronic obstructive pulmonary disease) (J44.9) Active confirmed Problem Hypertension (95758312) HTN (hypertension) (I10) Active confirmed Problem Obstructive sleep apnea syndrome (91066273) DANIEL (obstructive sleep apnea) (G47.33) Active confirmed Problem Lumbar radiculopathy (162421755) Lumbar radiculopathy (M54.16) Active confirmed Problem Diabetes mellitus type 2 (disorder) (90598205) DM2 (diabetes mellitus, type 2) (E11.9) Active confirmed Problem 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) Cigarette nicotine dependence with nicotine-induced disorder (F17.219) Active confirmed Problem Leukocytosis (827132912) Leukocytosis (D72.829) Active confirmed Problem Acute exacerbation of chronic obstructive airways disease (382685725) COPD with exacerbation (J44.1) Active confirmed Problem 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 (I87.313) Active confirmed Problem Non-prs chr ulce r oth prt l low leg limited to brkdwn skin (L97.821) Active confirmed Problem Stasis dermatitis co-occurrent with venous ulcer of right lower extremity due to chronic peripheral venous hypertension (622987281107709) Idiopathic chronic venous hypertension of right lower extremity with ulcer (I87.311) Active confirmed Problem Chronic venous hypertension with ulcer and inflammation involving left side (I87.332) Active confirmed Problem Abnormal arterial blood gas (484618264) Elevated carbon dioxide level (R79.81) Active confirmed Problem Skin ulcer of right knee, limited to breakdown of skin (L97.811) Active confirmed Encounters Encounter Location Date Provider Diagnosis [facility] [address] [place] [address] 04/07/2024 Armando Yañez [facility] [address] [place] [address] 12/02/2024 Armando De Leonsa Plan Of Treatment Pending Test Test Name Order Date CBC AUTO DIFF 08/27/2024 PROF CHEM 8 (BAS METB) 08/27/2024 VC SEGMENTAL PRESSURES 04/24/2024 Insurance Providers Payer Name Payer Address Payer Phone Subscriber Number Group Number Insured Name Patient Relationship to Insured Coverage Start Date Coverage End Date [facility] [employer] [address] [place] [address] [phone] [id number] Mitzi Macias Self - patient is the [...] (hyperlipidemia) E78.5 Elevated carbon dioxide level R79.81 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 inhaled stero ids Z79.51 Anxiety and depression F41.8 GERD (gastroesophageal reflux disease) K 21.9 Surgical History Surgery Date(Month/Year) hysterectomy cholecystectomy toe surgery Hospitalization History Reason Date(Month/Year) Pneumonia -[facility] 08/31/2023 COPD Exacerbation-[facility] 09/10/2023
--- OUTSIDE RECORDS SUMMARY | 2025-03-04 13:10 | XMS_ITS | Encounter Summary ---
Author Organization [facility] Address [address] [place] [address] Care Team Providers Care Field Foreman Name Role Phone Ty Amin MD Primary Care Provider [phone] Mckayla Blas DINKEY LOCOMOTIVE OPERATOR Unavailable [phone] Mckayla Blas DINKEY LOCOMOTIVE OPERATOR Unavailable [phone] Reason for Visit * Reason Comments Med Refill Encounter Details Date Type Department Care Team (Late st Contact Info) Description 11/27/2023 Refill [facility] [address] [place] [address] Mckayla Blas NP [address] [place] [address] Chronic obstructive pulmonary disease, unspecified (HCC) Social [...] any clubs o r organizations such as spiritism groups, unions, fraternal or athletic groups, or [...] Recorded Patient Health Questionnaire-2 Score 0 11/01/2023 [facility] [...] Office Visit [facility] [address] [place] [address] Mckayla Blas NP [address] [place] [address] 05/28/2025 10:30 AM EST Office Visit [facility] [facility] [address] [place] [address] Rain Souza MD [address] [place] [address] 02/01/2026 6:00 PM EDT Office Visit [facility] [address] [place] [address] Mckayla Blas NP [address] [place] [address] documented as of this encounter Visit Diagnoses Diagnosis Chronic obstructive pulmonary disease, unspecified (HCC) documented in this encounter Care Teams Field Foreman Relationship Specialty Start Date End Date Ty Amin MD [address] [place] [address] PCP - General Family Medicine 09/20/23 Mckayla Blas NP [address] [place] [address] PCP - [facility] 09/07/23 01/11/25 Mckayla Blas NP [address] [place] [address] Nurse Practitioner Family Medicine 09/20/23 documented as of this encounter
--- OUTSIDE RECORDS SUMMARY | 2025-03-04 13:10 | XMS_ITS | Clinical Summary ---
Author Organization [facility] Address [address] [place] [address] Care Team Providers Care Boiler Room Operator Name Role Phone Mckayla Blas MD Primary Care Provider [phone] Allergies No known active allergies Medications amitriptyline [...] SUBCUTANEOUSLY TWICE DAILY 2 Active HYDROcodone-ac etaminophen (Dunbar) 5-325 mg tablet TAKE 1 TABLET BY MOUTH THREE TIMES A DAY NEEDED FOR PAIN MUST LAST 30 DAYS 4 Active DULoxetine (Cymbalta) [address] capsule Take 1 tablet by mouth in the morning. Active ergocalciferol (Vitamin D-2) 1.25 MG (92704 Units) capsule Take 1.25 mg by mouth. 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 nursing home current use of inhaled steroid 025 [...] Assessment & Plan: Open wounds refer to [facility] Wound Care Vaginal yeast infection 08/17/2023 [...] 02/04/2025 Results Follow-Up Cardiology [address] [place] [address] Karma Chatterjee CNP Complete Echo (TTE) w/wo Imaging Agent, Strain, 3D, Bubble Study 01/30/2025 Orders Only [facility] [address] [place] [address] Provider, MD Dale 01/06/2025 11:20 AM EDT Office Visit [facility] [address] [facility] [place] [address] Karma Chatterjee CNP Chronic diastolic heart failure [...] drink = 0.6 oz pur e alcohol) PA Safety & Environment Answer Date Rec orded [...] Months Insurance [employer] MEDICARE Care Teams Boiler Room Operator Relationship Specialty Start Date End Date Mckayla Blas MD [address] [place] [address] PCP - General Nurse Practitioner 11/13/23
--- OUTSIDE RECORDS SUMMARY | 2025-03-04 13:10 | XMS_ITS | Encounter Summary ---
Author Organization [facility] Address [address] [place] [address] Care Team Providers Care Packaging Sales Representative Name Role Phone Ty Amin MD Primary Care Provider [phone] Mckayla Blas NP Unavailable [phone] Reason for Visit * Reason Comments Med Refill Encounter Details Date Type Department Care Team (Late st Contact Info) Description 02/26/2025 [facility]ill [facility] [address] [place] [address] Rain Souza MD [address] [place] [address] Type 2 diabetes mellitus with other circulatory [...] do you attend chur or shinto services? More than 4 times per year [...] Recorded Patient Health Questionnaire-2 Score 0 01/26/2025 [facility] [...] in the past 12 m [facility], were you homeless or living in [...] [facility] [address] [place] [address] Mckayla Blas NP [address] [place] [address] 05/28/2025 10:30 AM EST Office Visit [facility] [place] [facility] [address] [place] [address] Rain Souza MD [address] [place] [address] 02/01/2026 6:00 PM EDT Office Visit [facility] [address] [place] [address] Mckayla Blas NP [address] [place] [address] documented as of this encounter Visit Diagnoses Diagnosis Type 2 diabetes mellitus with other circulatory complications (HCC) documented in this encounter Additional Health Concerns Assessment Noted Time PHQ-9 Depression Total Score: 3 01/17/20 10:08 AM EDT documented as of this encounter Care Teams Packaging Sales Representative Relationship Specialty Start Date End Date Ty Amin MD [address] [place] [address] PCP - General Family Medicine 09/20/23 Mckayla Blas NP [address] [place] [address] Nurse Practitioner Family Medicine 09/20/23 documented as of this encounter
--- OUTSIDE RECORDS SUMMARY | 2025-03-04 13:19 | XMS_ITS | CCD ---
Author Organization [facility] Care Team Providers Care Director [place] Sales Name Role Phone James Benavidez Primary Care Provider JAMES BENAVIDEZ Primary Care Unavailable SHENRENATOEANISHAHAL Admitting Unavailable KYLAHEANISHAHAL Attending Unavailable AICHHOLZ, MCKAYLA Primary Care Unavailable AICHHOLZ, MCKAYLA Referring Unavailable AICHHOLZ, MCKAYLA J Primary Care Physician Tico, Stephanie Unavailable OLE RAMIREZ Attending Unavailable OLE RAMIREZ Consulting Unavailable AICHHOLZ, INSTALL AND REPAIR TECHNICIAN MCKAYLA Primary Care Unavailable OLE RAMIREZ Admitting Unavailable ANTONY SHRESTHA Consulting Unavailable ALONDRA ., UMBERTO Admitting Unavailable ALONDRA ., UMBERTO Attending Unavailable AICHHOLZ, INSTALL AND REPAIR TECHNICIAN MCKAYLA Primary Care Unavailable AFSANEH Loera, DR BOLANOS Consulting Unavailable MARYANNE POWER Consulting Unavailable GLENN KERR Consulting Unavailable YOMAIRA KERR Consulting Unavailable HATTIE GOFF Consulting Unavailable ALONDRA ., UMBERTO Consulting Unavailable TICO, STEPHANIE Attending Unavailable TICO, STEPHANIE Consulting Unavailable AICHHOLZ, INSTALL AND REPAIR TECHNICIAN MCKAYLA Primary Care Unavailable TICO, STEPHANIE Admitting Unavailable ARAUZ ., DR DUMONT Admitting Unavailable AICHHOLZ, INSTALL AND REPAIR TECHNICIAN MCKAYLA Primary Care Unavailable ARAUZ ., DR DUMONT Attending Unavailable ARAUZ ., DR DUMONT Consulting Unavailable COLLIN HUERTAS Consulting Unavailable CECILIA KAUFMAN Admitting Unavailable CECILIA KAUFMAN Attending Unavailable AICHHOLZ, INSTALL AND REPAIR TECHNICIAN MCKAYLA Primary Care Unavailable RAFAEL GONGORA Attending Unavailable RAFAEL GONGORA Admitting Unavailable AICHHOLZ, INSTALL AND REPAIR TECHNICIAN MCKAYLA Primary Care Unavailable AICHHOLZ, INSTALL AND REPAIR TECHNICIAN MCKAYLA Admitting Unavailable AICHHOLZ, INSTALL AND REPAIR TECHNICIAN MCKAYLA Primary Care Unavailable AICHHOLZ, INSTALL AND REPAIR TECHNICIAN MCKAYLA Attending Unavailable AICHHOLZ, INSTALL AND REPAIR TECHNICIAN MCKAYLA Consulting Unavailable LAKSHMIPATHY ., NARENDRANATH Attending Anette vailable LAKSHMIPATHY ., NARENDRANATH Consulting Anette vailable LAKSHMIPATHY ., NARENDRANATH Admitting Anette vailable AICHHOLZ, INSTALL AND REPAIR TECHNICIAN MCKAYLA Primary Care Unavailable VALENZUELA ., GIL Consulting Unavailable MORTENSEN ., DR CHAPARRO Aguillon Attending Unavailable MORTENSEN ., DR CHAPARRO Aguillon Admitting Unavailable AICHHOLZ, INSTALL AND REPAIR TECHNICIAN MKCAYLA Primary Care Unavailable VALENZUELA ., GIL Consulting Unavailable MORTENSEN ., DR CHAPARRO Aguillon Admitting Unavailable AICHHOLZ, INSTALL AND REPAIR TECHNICIAN MCKAYLA Primary Care Unavailable MORTENSEN ., DR CHAPARRO Aguillon Attending Unavailable HALKER ., SUBHASH Consulting Unavailable LAKSHMIPATHY ., NARENDRANATH Admitting Anette vailable LAKSHMIPATHY ., NARENDRANATH Attending Anette vailable AICHHOLZ, INSTALL AND REPAIR TECHNICIAN MCKAYLA Primary Care Unavailable MORTENSEN ., DR CHAPARRO Aguillon Attending Unavailable MORTENSEN ., DR CHAPARRO Aguillon Admitting Unavailable VALENZUELA ., GIL Consulting Unavailable AICHHOLZ, INSTALL AND REPAIR TECHNICIAN MCKAYLA Primary Care Unavailable VALENZUELA ., GIL Consulting Unavailable MORTENSEN ., DR CHAPARRO Aguillon Attending Unavailable MORTENSEN ., DR CHAPARRO Aguillon Admitting Unavailable AICHHOLZ, INSTALL AND REPAIR TECHNICIAN MCKAYLA Primary Care Unavailable HATTIE BRODERICK Attending Unavailable HATTIE BRODERICK Admitting Unavailable AICHHOLZ, INSTALL AND REPAIR TECHNICIAN MCKAYLA Primary Care Unavailable AICHHOLZ, INSTALL AND REPAIR TECHNICIAN MCKAYLA Admitting Unavailable AICHHOLZ, INSTALL AND REPAIR TECHNICIAN MCKAYLA Consulting Unavailable AICHHOLZ, INSTALL AND REPAIR TECHNICIAN MCKAYLA Primary Care Unavailable AICHHOLZ, INSTALL AND REPAIR TECHNICIAN MCKAYLA Attending Unavailable AICHHOLZ, INSTALL AND REPAIR TECHNICIAN MCKAYLA Primary Care Unavailable MISC, DR LESLIE Admitting Unavailable MISC, DR LESLIE Attending Unavailable MISC, DR LESLIE Consulting Unavailable DIAB ., MARIANO Admitting Unavailable DIAB ., MARIANO Attending Unavailable DIAB ., MARIANO Consulting Unavailable AICHHOLZ, INSTALL AND REPAIR TECHNICIAN MCKAYLA Primary Care Unavailable RICCO PICKARD Consulting Unavailable AICHHOLZ, INSTALL AND REPAIR TECHNICIAN MCKAYLA Admitting Unavailable AICHHOLZ, INSTALL AND REPAIR TECHNICIAN MCKAYLA Primary Care Unavailable AICHHOLZ, INSTALL AND REPAIR TECHNICIAN MCKAYLA Attending Unavailable AICHHOLZ, INSTALL AND REPAIR TECHNICIAN MCKAYLA Consulting Unavailable DR PATRICIA VELOZ Consulting Unavailable MELISSA .CECILIA Attending Unavailable MELISSA .CECILIA Admitting Unavailable DR PATRICIA VELOZ Consulting Unavailable AICHHOLZ, INSTALL AND REPAIR TECHNICIAN MCKAYLA Primary Care Unavailable TAMLYN ., CECILIA Consulting Unavailable FESTUS ., DR CHAPARRO Aguillon Attending Unavailable FESTUS ., DR CHAPARRO Aguillon Consulting Unavailable FESTUS ., DR CHAPARRO Aguillon Admitting Unavailable AICHHOLZ, INSTALL AND REPAIR TECHNICIAN MCKAYLA Primary Care Unavailable HATTIE BRODERICK Attending Unavailable HATTIE BRODERICK Consulting Unavailable HATTIE BRODERICK Admitting Unavailable AICHHOLZ, INSTALL AND REPAIR TECHNICIAN MCKAYLA Primary Care Unavailable HATTIE BAUTISTA Unavailable AICHHOLZ, SAYDA MCKAYLA Admitting Unavailable AICHHOLZ, INSTALL AND REPAIR TECHNICIAN MCKAYLA Attending Unavailable AICHHOLZ, INSTALL AND REPAIR TECHNICIAN MCKAYLA Consulting Unavailable AICHHOLZ, INSTALL AND REPAIR TECHNICIAN MCKAYLA Primary Care Unavailable Brennan PHIPPS, Ty Primary Care Provider [phone] Brennan PHIPPS, Ty Primary Care Provider [phone] Aichholz MOTION PICTURE PRINTER, Mckayla Unavailable Aichholz MOTION PICTURE PRINTER, Mckayla Unavailable Elbert ARAUZ Attending Unavailable SARAH [...] Medication Allergies] Propensity to adverse reactions (disorder) [facility] Repository Medications Current Medications Medication [...] Start Date: 02/06/22 Status: Ordered HYDROcodone-acet aminophen (Sophia) 5-325 MG tablet 1 tablet 3 (three) times a day as needed for severe pain. Active take 1 tablet by vandana twice daily as needed Sophia 5-325 MG 1 tablet as needed Orally [...] every week ergocalciferol (Vitamin D2) 1.25 MG (33923 UT) capsule Indications: Vitamin D deficiency, unspecified Take 1 capsule (1.25 mg) by mouth 1 (one) time per week 12 capsule 1 01/16/2025 04/10/2025 Active Start: 10-27-2024 End: 01-19-2025 take 1 capsule by mouth two times weekly ergocalciferol (Vitamin D2) 1.25 MG (16389 UT) capsule Indications: Vitamin D deficiency, unspecified Take 1 capsule (1.25 mg) by mouth 2 (two) times a week 24 capsule 1 10/27/2024 01/19/2025 Active Start: 04-06-2024 End: 10-27-2024 take 1 capsule by mouth every week ergocalciferol (Vitamin D2) 1.25 MG (13176 UT) capsule Indications: Vitamin D deficiency, unspecified [...] 02-06-2022 Chronic Other aftercare (1 source) Other penitentiary (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 therapy; Translations: [OTH 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 steroids] Onset: 08-27-2024 [...] Range Facility Orders Onlyon 01-30-2025 Orders Only [id number] Mitzi Macias 1970 F Date Provider Department Center 01/30/2025 [id number], HISTORICAL [facility] Family History Problem Relation Age of Onset Heart attack Paternal Grandmother Family Status - Relation Status Age at Mother Father Paternal Grandmother Normal [facility] CA ECHO DOPPLER COMPLETEon 0 01-29-2025 [place] [address] Cardiology Report Signed Patient: MITZI MACIAS MR#: [id number] : 1970 Acct:[id number] Age/Sex: 54 / F ADM Date: 01/29/25 Loc: CARD Attending Dr: AMI ORO APRN Ordering Physician: AMI ORO APRN Date of Service: 01/29/25 Procedure(s): CA echo doppler complete Accession Number(s): [id number] cc: Mckayla Blas MOTION PICTURE PRINTER; AMI ORO APRN Patient Name: MITZI MACIAS MR#: [id number] : 1970 Exam Date: 01/29/2025 Ordering Doctor: [...] HERRERA Signed By: 01/29/251839 DD/ 39 TD/TT: Jowl Trimmer: [facility] Radiology, Radiologist, MD - 01/29/2025 [place] [address] Cardiology Report Signed Patient: MITZI MACIAS MR#: [id number] : 1970 Acct:[id number] Age/Sex: 54 / F ADM Date: 01/29/25 Loc: CARD Attending Dr: AMI ORO APRN Ordering Physician: AMI ORO APRN Date of Service: 01/29/25 Procedure(s): CA echo doppler complete Accession Number(s): [id number] cc: Mckayla Blas MOTION PICTURE PRINTER; AMI ORO APRN Patient Name: MITZI MACIAS MR#: [id number] : 1970 Exam Date: 01/29/2025 Ordering Doctor: [...] HERRERA Signed By: 01/29/251839 DD/ 39 TD/TT: Jowl Trimmer: [facility] Radiology Study observation (narrative) [facility] CA ECHO DOPPLER COMPLETEOrde red By: Radiologist Radiology on 01-29-2025 [facility] Work Phone: Glucose (Bld) [Mass/Vol]on 0 01-29-2025 Glucose Blood, POC 121 mg/dL [facility] Laboratory - Hematology and Cell countson 01-29-2025 HbA1c (Bld) [Mass fraction] 8.4 % [facility] No Panel Informationon 01-29 Interpretation and review of laboratory results Abnormal [facility] Office Visiton 01-06-2025 Follow-up visit [id number] MaciasMitzi lee Gilberto 1970 F Date Provider Department Center 01/06/2025 AMI SARABIA [facility] Family History Problem Relation Age of Onset Heart attack Paternal Grandmother Family Status - Relation Status Age at Mother Father Paternal Grandmother Level of Service:[address] [place] OFFICE/OUTPATIENT ESTABLISHED MOD MDM 30 MIN Reason for Visit and Comments: Congestive Heart Failure [127] Hypertension [837853] Hyperlipidemia [182] Normal [facility] 36on 10-21-2024 36 Regarding lab results from 10/08/2024: MD Mickie Merritt MA Lipids, ALT AST, and BMP are normal. HbA1c was not performed. Continue current management. LM on patient's VM. Normal [facility] Glucose (Bld) [Mass/Vol]Orde red By: Mica Sauceda on 10-08-2024 Glucose Blood, POC 97 mg/dL [facility] Laboratory - Hematology and Cell countson 10-08-2024 HbA1c (Bld) [Mass fraction] 7.4 % [facility] No Panel InformationOrdered By: Mica Sauceda on 10-08-2024 [facility] TBH UA (CLEAN/CATCH) MICROSC OPIC IF INDICATEon 10-08-2024 BILIRUBIN URINE Negative NEGATIVE [facility] BLOOD URINE Negative NEGATIVE [facility] Clarity (U) CLEAR CLEAR [facility] Color (U) YELLOW YELLOW [facility] GLUCOSE URINE UA Negative NEGATIVE mg/dL [facility] Interpretation and review of laboratory results Abnormal [facility] Ketones Ql (U) Negative NEGATIVE mg/dL [facility] Leukocyte esterase Test strip Ql (U) Negative NEGATIVE [facility] NITRITE URINE Negative NEGATIVE [facility] pH (U) 5.5 [pH] 5.0 - 9.0 [facility] Protein (U) [Mass/Vol] 30 mg/dL Abnormal NEG/TRACE NO [facility] SPECIFIC GRAVITY URINE >=1.030 Abnormal 1.005 - 1.025 [facility] URINE MICROSCOPIC INDICATED YES [facility] UROBILINOGEN URINE 1.0 EU/dL 0.2 - 1.0 EU/dL [facility] ALL CBC WITH AUTO DIFFon BASOPHILS ABSOLUTE AUTO 0.1 [facility] Basophils/100 WBC (Bld) 0.5 % 0.2 - 2.0 % [facility] Eosinophils/100 WBC (Bld) 1.9 % 0.9 - 7.0 % [facility] Erythrocyte distribution width (RBC) [Ratio] 14.6 % 11.0 - 15.0 % [facility] Hematocrit (Bld) [Volume fraction] 50.9 % High 36.0 - 48.0 % [facility] Hemoglobin (Bld) [Mass/Vol] 16.1 g/dL High 12.0 - 16.0 g/dL [facility] IMMATURE GRANULOCYTES ABS AUTO 0.04 High [facility] Immature granulocytes/100 WBC (Bld) 0.3 % 0.0 - 0.5 % [facility] Interpretation and review of laboratory results Abnormal [facility] LYMPHOCYTES ABSOLUTE AUTO 3.2 [facility] Lymphocytes/100 WBC (Bld) 25.1 % 20.5 - 60.0 % [facility] MCH (RBC) [Entitic mass] 29.2 pg 26.7 - 34.0 pg [facility] MCHC (RBC) [Mass/Vol] 31.6 g/dL 29.9 - 35.2 g/dL [facility] MCV (RBC) [Entitic vol] 92.2 fL 81.0 - 99.0 fL [facility] MONOCYTES ABSOLUTE AUTO 0.7 [facility] Monocytes/100 WBC (Bld) 5.2 % 1.7 - 12.0 % [facility] NEUTROPHILS ABSOLUTE AUTO 8.6 High [facility] Neutrophils/100 WBC (Bld) 67 % 43.0 - 75.0 % [facility] Platelet mean volume (Bld) [Entitic vol] 12.8 fL 9.5 - 13.5 fL [facility] EO # 0.2 [facility] PLT 122 Low [facility] RBC 5.52 High [facility] WBC 12.8 High [facility] Office Visiton 08-08-2024 Follow-up visit [id number] Mitzi Macias 1970 F Date Provider Department Center 08/08/2024 [id number] [facility] CARD [facility] Family History Problem Relation Age of Onset Heart attack Paternal Grandmother Family Status - Relation Status Age at Paternal Grandmother Level of Service:38812 [place] OFFICE/OUTPATIENT ESTABLISHED MOD MDM 30 MIN Reason for Visit and Comments: Congestive Heart Failure [127] - Denies chest pain, SOB, and palpitations. Hypertension [093177] Hyperlipidemia [182] LVH [Other] Edema [[id number]] - Denies worsening edema. She sees wound care for RLE ulcer. She was seeing the vein specialists here in town but they are moving to [place] in a few weeks. Normal [facility] Glucose (Bld) [Mass/Vol]Orde red By: Mica Sauceda on 05-27-2024 Glucose Blood, POC 158 mg/dL [facility] Laboratory - Hematology and Cell countson 05-27-2024 HbA1c (Bld) [Mass fraction] 9.2 % [facility] No Panel InformationOrdered By: Mica Sauceda on 05-27-2024 [facility] CREATININEon 05-12-2024 Creatinine [Mass/Vol] 0.92 mg/dL 0.55 - 1.02 mg/dL [facility] GFR/1.73 sq M.predicted CKD-EPI (S/P/Bld) [Vol rate/Area] >60 >=60 mL/min/1.73m 2 [facility] EGFR-NON AF VENEZUELAN >60 >=60 mL/min/1.73m 2 [facility] CBC AUTO DIFFon 12-06-2022 BASO # 0.0 103/ul Normal 0.0-0.1 [facility] Comment on above: Performed By: #### C BC #### [facility] [address] [place] [address] Dr. Ashlie Hills Basophils/100 WBC (Bld) 0.1 % Critically low 0.2-2.0 [facility] Comment on above: Performed By: #### C BC #### [facility] [address] [place] [address] Dr. Ashlie Hills EO # 0.0 103/ul Normal 0.0-0.7 [facility] Comment on above: Performed By: #### C BC #### [facility] [address] [place] [address] Dr. Ashlie Hills Eosinophils/100 WBC (Bld) 0.0 % Critically low 0.9-7.0 [facility] Comment on above: Performed By: #### C BC #### [facility] [address] [place] [address] Dr. Ashlie Hills Erythrocyte distribution width (RBC) [Ratio] 14.9 % Normal 11.0-15.0 [facility] Comment on above: Performed By: #### C BC #### [facility] [address] [place] [address] Dr. Ashlie Hills Hematocrit (Bld) [Volume fraction] 46.2 % Normal 36.0-48.0 [facility] Comment on above: Performed By: #### C BC #### [facility] [address] [place] [address] Dr. Ashlie Hills Hemoglobin (Bld) [Mass/Vol] 14.7 g/dL Normal 12.0-16.0 [facility] Comment on above: Performed By: #### C BC #### [facility] [address] [place] [address] Dr. Ashlie Hills IG # 0.06 10e3/ul Critically high 0.00-0.03 [facility] Comment on above: Performed By: #### C BC #### [facility] [address] [place] [address] Dr. Ashlie Hills IG % 0.4 % Normal 0.0-0.5 [facility] Comment on above: Performed By: #### C BC #### [facility] [address] [place] [address] Dr. Ashlie Hills LYMPH # 1.3 103/ul Normal 1.2-3.8 [facility] Comment on above: Performed By: #### C BC #### [facility] [address] [place] [address] Dr. Ashlie Hills Lymphocytes/100 WBC (Bld) 9.4 % Critically low 20.5-60.0 [facility] Comment on above: Performed By: #### C BC #### [facility] [address] [place] [address] Dr. Ashlie Hills MANUAL DIFF REQ NO Normal [facility] Comment on above: Performed By: #### C BC #### [facility] [address] [place] [address] Dr. Ashlie Hills MCH (RBC) [Entitic mass] 28.4 pg Normal 26.7-34.0 [facility] Comment on above: Performed By: #### C BC #### [facility] [address] [place] [address] Dr. Ashlie Hills MCHC (RBC) [Mass/Vol] 31.8 g/dL Normal 29.9-35.2 [facility] Comment on above: Performed By: #### C BC #### [facility] [address] [place] [address] Dr. Ashlie Hills MCV (RBC) [Entitic vol] 89.4 fL Normal 81.0-99.0 [facility] Comment on above: Performed By: #### C BC #### [facility] [address] [place] [address] Dr. Ashlie Hills MONO # 0.5 103/ul Normal 0.3-0.8 [facility] Comment on above: Performed By: #### C BC #### [facility] [address] [place] [address] Dr. Ashlie Hills Monocytes/100 WBC (Bld) 3.4 % Normal 1.7-12.0 [facility] Comment on above: Performed By: #### C BC #### [facility] [address] [address] [address] Ashlie Hills NEUT # 11.8 103/ul Critically high 1.4-6.5 [facility] Comment on above: Performed By: #### C BC #### [facility] [address] [address] [address] Ashlie Hills Neutrophils/100 WBC (Bld) 86.7 % Critically high 43.0-75.0 [facility] Comment on above: Performed By: #### C BC #### [facility] [address] [address] [address] Ashlie Hills Platelet mean volume (Bld) [Entitic vol] 12.6 fL Normal 9.5-13.5 [facility] Comment on above: Performed By: #### C BC #### [facility] [address] [address] [address] Ashlie Hills PLT 133 103/ul Critically low 150-450 [facility] Comment on above: Performed By: #### C BC #### [facility] [address] [address] [address] Ashlie Hills RBC 5.17 106/ul Normal 4.20-5.40 [facility] Comment on above: Performed By: #### C BC #### [facility] [address] [address] [address] Ashlie Hills WBC 13.6 103/ul Critically high 4.0-11.0 [facility] Comment on above: Performed By: #### C BC #### [facility] [address] [address] [address] Ashlie Hills MAGNESIUMon 12-06-2022 Magnesium [Mass/Vol] 2.2 mg/dL Normal 1.8-2.4 [facility] Comment on above: Performed By: #### I NFLUAB #### [facility] [address] [address] [address] Ashlie Hills POINT OF CARE GLUCOSEon - Glucose [Mass/Vol] 340 mg/dL Critically high 74-106 [facility] Comment on above: Performed By: #### P OCGLUC #### [facility] [address] [place] [address] Dr. Ashlie Hills Glucose [Mass/Vol] 276 mg/dL Critically high -106 [facility] Comment on above: Performed By: #### C BC #### [facility] [address] [place] [address] Dr. Ashlie Hills Glucose [Mass/Vol] 333 mg/dL Critically high -106 [facility] Comment on above: Performed By: #### C BC #### [facility] [address] [place] [address] Dr. Ashlie Hills PROF CHEM 8 (BAS METB)on Anion gap [Moles/Vol] 10.9 mmol/L Normal [facility] Comment on above: Performed By: #### I NFLUAB #### [facility] [address] [place] [address] Dr. Ashlie Hills Calcium [Mass/Vol] 9.3 mg/dL Normal 8.5-10.1 [facility] Comment on above: Performed By: #### I NFLUAB #### [facility] [address] [place] [address] Dr. Ashlie Hills Chloride [Moles/Vol] 103 mmol/L Normal 98-107 [facility] Comment on above: Performed By: #### I NFLUAB #### [facility] [address] [place] [address] Dr. Ashlie Hills CO2 [Moles/Vol] 31.2 mmol/L Normal 21.0-32.0 [facility] Comment on above: Performed By: #### I NFLUAB #### [facility] [address] [place] [address] Dr. Ashlie Hills Creatinine [Mass/Vol] 0.96 mg/dL Normal 0.55-1.02 [facility] Comment on above: Performed By: #### I NFLUAB #### [facility] [address] [place] [address] Dr. Ashlie Hills EGFR-AF VENEZUELAN >60 Normal >=60 [facility] Comment on above: Performed By: #### I NFLUAB #### [facility] [address] [place] [address] Dr. Ashlie Hills EGFR-NON AF VENEZUELAN >60 Normal >=60 [facility] Comment on above: Performed By: #### I NFLUAB #### [facility] [address] [place] [address] Dr. Ashlie Hills Glucose [Mass/Vol] 288 mg/dL Critically high 74-106 [facility] Comment on above: Performed By: #### I NFLUAB #### [facility] [address] [place] [address] Dr. Ashlie Hills Potassium [Moles/Vol] 5.1 mmol/L Normal 3.5-5.1 [facility] Comment on above: Performed By: #### I NFLUAB #### [facility] [address] [place] [address] Dr. Ashlie Hills Sodium [Moles/Vol] 140 mmol/L Normal 136-145 [facility] Comment on above: Performed By: #### I NFLUAB #### [facility] [address] [place] [address] Dr. Ashlie Hills Urea nitrogen [Mass/Vol] 30.0 mg/dL Critically high 7.0-18.0 [facility] Comment on above: Performed By: #### I NFLUAB #### [facility] Laboratory [address] [place] [address] Dr. Ashlie Hills Urea nitrogen/Creatinine [Mass ratio] 31.2 mg/mg Normal [facility] Comment on above: Performed By: #### I NFLUAB #### [facility] Laboratory [address] [place] [address] Dr. Ashlie Hills CBC AUTO DIFFon 12-05-2022 BASO # 0.0 103/ul Normal 0.0-0.1 [facility] Comment on above: Performed By: #### C BC #### [facility] [address] [place] [address] Dr. Ashlie Hills Basophils/100 WBC (Bld) 0.4 % Normal 0.2-2.0 [facility] Comment on above: Performed By: #### C BC #### [facility] [address] [place] [address] Dr. Ashlie Hills EO # 0.0 103/ul Normal 0.0-0.7 [facility] Comment on above: Performed By: #### C BC #### [facility] [address] [place] [address] Dr. Ashlie Hills Eosinophils/100 WBC (Bld) 0.0 % Critically low 0.9-7.0 [facility] Comment on above: Performed By: #### C BC #### [facility] [address] [place] [address] Dr. Ashlie Hills Erythrocyte distribution width (RBC) [Ratio] 14.8 % Normal 11.0-15.0 [facility] Comment on above: Performed By: #### C BC #### [facility] [address] [place] [address] Dr. Ashlie Hills Hematocrit (Bld) [Volume fraction] 49.9 % Critically high 36.0-48.0 [facility] Comment on above: Performed By: #### C BC #### [facility] [address] [place] [address] Dr. Ashlie Hills Hemoglobin (Bld) [Mass/Vol] 15.7 g/dL Normal 12.0-16.0 [facility] Comment on above: Performed By: #### C BC #### [facility] [address] [place] [address] Dr. Ashlie Hills IG # 0.04 10e3/ul Critically high 0.00-0.03 [facility] Comment on above: Performed By: #### C BC #### [facility] [address] [place] [address] Dr. Ashlie Hills IG % 0.5 % Normal 0.0-0.5 [facility] Comment on above: Performed By: #### C BC #### [facility] [address] [place] [address] Dr. Ashlie Hills LYMPH # 1.1 103/ul Critically low 1.2-3.8 [facility] Comment on above: Performed By: #### C BC #### [facility] [address] [place] [address] Dr. Ashlie Hills Lymphocytes/100 WBC (Bld) 12.7 % Critically low 20.5-60.0 [facility] Comment on above: Performed By: #### C BC #### [facility] [address] [place] [address] Dr. Ashlie Hills MANUAL DIFF REQ NO Normal [facility] Comment on above: Performed By: #### C BC #### [facility] [address] [place] [address] Dr. Ashlie Hills MCH (RBC) [Entitic mass] 28.1 pg Normal 26.7-34.0 [facility] Comment on above: Performed By: #### C BC #### [facility] [address] [place] [address] Dr. Ashlie Hills MCHC (RBC) [Mass/Vol] 31.5 g/dL Normal 29.9-35.2 [facility] Comment on above: Performed By: #### C BC #### [facility] [address] [place] [address] Dr. Ashlie Hills MCV (RBC) [Entitic vol] 89.3 fL Normal 81.0-99.0 [facility] Comment on above: Performed By: #### C BC #### [facility] [address] [place] [address] Dr. Ashlie Hills MONO # 0.1 103/ul Critically low 0.3-0.8 [facility] Comment on above: Performed By: #### C BC #### [facility] [address] [place] [address] Dr. Ashlie Hills Monocytes/100 WBC (Bld) 1.3 % Critically low 1.7-12.0 [facility] Comment on above: Performed By: #### C BC #### [facility] [address] [place] [address] Dr. Ashlie Hills NEUT # 7.2 103/ul Critically high 1.4-6.5 [facility] Comment on above: Performed By: #### C BC #### [facility] [address] [place] [address] Dr. Ashlie Hills Neutrophils/100 WBC (Bld) 85.1 % Critically high 43.0-75.0 [facility] Comment on above: Performed By: #### C BC #### [facility] [address] [place] [address] Dr. Ashlie Hills Platelet mean volume (Bld) [Entitic vol] 12.2 fL Normal 9.5-13.5 [facility] Comment on above: Performed By: #### C BC #### [facility] [address] [place] [address] Dr. Ashlie Hills PLT 116 103/ul Critically low 150-450 [facility] Comment on above: Performed By: #### C BC #### [facility] [address] [place] [address] Dr. Ashlie Hills RBC 5.59 106/ul Critically high 4.20-5.40 [facility] Comment on above: Performed By: #### C BC #### [facility] [address] [place] [address] Dr. Ashlie Hills WBC 8.5 103/ul Normal 4.0-11.0 [facility] Comment on above: Performed By: #### C BC #### [facility] [address] [place] [address] Dr. Ashlie Hills CTA CHEST WO W [...] by: HATTIE GOFF Date: 2022-12-05 01:52 Normal [facility] MAGNESIUMon 12-05-2022 Magnesium [Mass/Vol] 2.1 mg/dL Normal 1.8-2.4 [facility] Comment on above: Performed By: #### P OCGLUC #### [facility] [address] [address] [address] Ashlie Hilsl POINT OF CARE GLUCOSEon 11-08 Glucose [Mass/Vol] 293 mg/dL Critically high 74-106 [facility] Comment on above: Performed By: #### P OCGLUC #### [facility] [address] [address] [address] Ashlie Hills Glucose [Mass/Vol] 269 mg/dL Critically high 74-106 [facility] Comment on above: Performed By: #### P OCGLUC #### [facility] [address] [address] [address] Ashlie Hills Glucose [Mass/Vol] 223 mg/dL Critically high -106 [facility] Comment on above: Performed By: #### C VDAGS #### [facility] [address] [address] [address] Ashlie Hills PROF CHEM 8 (BAS METB)on Anion gap [Moles/Vol] 11.6 mmol/L Normal [facility] Comment on above: Performed By: #### P OCGLUC #### [facility] [address] [address] [address] Ashlie Hills Calcium [Mass/Vol] 9.2 mg/dL Normal 8.5-10.1 [facility] Comment on above: Performed By: #### P OCGLUC #### [facility] [address] [address] [address] Ashlie Hills Chloride [Moles/Vol] 102 mmol/L Normal 98-107 [facility] Comment on above: Performed By: #### P OCGLUC #### [facility] [address] [address] [address] Ashlie Hills CO2 [Moles/Vol] 28.7 mmol/L Normal 21.0-32.0 [facility] Comment on above: Performed By: #### P OCGLUC #### [facility] [address] [address] [address] Ashlie Hills Creatinine [Mass/Vol] 1.04 mg/dL Critically high 0.55-1.02 [facility] Comment on above: Performed By: #### P OCGLUC #### [facility] [address] [address] [address] Ashlie Hills EGFR-AF VENEZUELAN >60 Normal >=60 [facility] Comment on above: Performed By: #### P OCGLUC #### [facility] [address] [address] [address] Ashlie Hills EGFR-NON AF VENEZUELAN 56 mL/min/1.73m2 Critically low >=60 [facility] Comment on above: Performed By: #### P OCGLUC #### [facility] [address] [address] [address] Ashlie Hills Glucose [Mass/Vol] 231 mg/dL Critically high 74-106 [facility] Comment on above: Performed By: #### P OCGLUC #### [facility] [address] [address] [address] Ashlie Hills Potassium [Moles/Vol] 4.3 mmol/L Normal 3.5-5.1 [facility] Comment on above: Performed By: #### P OCGLUC #### [facility] [address] [place] [address] Dr. Ashlie Hills Sodium [Moles/Vol] 138 mmol/L Normal 136-145 [facility] Comment on above: Performed By: #### P OCGLUC #### [facility] [address] [place] [address] Dr. Ashlie Hills Urea nitrogen [Mass/Vol] 17.0 mg/dL Normal 7.0-18.0 [facility] Comment on above: Performed By: #### P OCGLUC #### [facility] [address] [place] [address] Dr. Ashlie Hills Urea nitrogen/Creatinine [Mass ratio] 16.3 mg/mg Normal [facility] Comment on above: Performed By: #### P OCGLUC #### [facility] [address] [place] [address] Dr. Ashlie Hlils RESPIRATORY PANEL PLUSon Adenovirus Not detected Normal NOT DETECTED The [facility] Comment on above: Performed By: #### C VDAGS #### [facility] [address] [place] [address] Dr. Ashlie Shaffer. Parapertusis Not detected Normal NOT DETECTED [facility] Comment on above: Performed By: #### C VDAGS #### [facility] [address] [place] [address] Dr. Ashlie Hills B. Pertussis Not detected Normal NOT DETECTED The [facility] Comment on above: Performed By: #### C VDAGS #### [facility] [address] [place] [address] Dr. Ashlie Hills Chlamydia Pneumoniae Not detected Normal NOT DETECTED [facility] Comment on above: Performed By: #### C VDAGS #### [facility] [address] [place] [address] Dr. Ashlie Hills Coronavirus 229E Not detected Normal NOT DETECTED [facility] Comment on above: Performed By: #### C VDAGS #### [facility] [address] [place] [address] Dr. Ashlie Hills Coronavirus HKU1 Not detected Normal NOT DETECTED [facility] Comment on above: Performed By: #### C VDAGS #### [facility] [address] [place] [address] Dr. Ashlie Hills Coronavirus NL63 Not detected Normal NOT DETECTED [facility] Comment on above: Performed By: #### C VDAGS #### [facility] [address] [place] [address] Dr. Ashlie Hills Coronavirus OC43 Not detected Normal NOT DETECTED [facility] Comment on above: Performed By: #### C VDAGS #### [facility] [address] [place] [address] Dr. Ashlie Hills Influenza A H1 Not detected Normal NOT DETECTED [facility] Comment on above: Performed By: #### C VDAGS #### [facility] [address] [place] [address] Dr. Ashlie Hills Influenza A H1 2009 Not detected Normal NOT DETECTED [facility] Comment on above: Performed By: #### C VDAGS #### [facility] [address] [place] [address] Dr. Ashlie Hills Influenza A H3 Not detected Normal NOT DETECTED [facility] Comment on above: Performed By: #### C VDAGS #### [facility] [address] [place] [address] Dr. Ashlie Hills Influenza B Not detected Normal NOT DETECTED [facility] Comment on above: Performed By: #### C VDAGS #### [facility] [address] [place] [address] Dr. Ashlie Hills Metapneumovirus Not detected Normal NOT DETECTED [facility] Comment on above: Performed By: #### C VDAGS #### [facility] [address] [place] [address] Dr. Ashlie Hills Mycoplas. Pneumoniae Not detected Normal NOT DETECTED [facility] Comment on above: Performed By: #### C VDAGS #### [facility] [address] [place] [address] Dr. Ashlie Hills Parainfluenza 1 Not detected Normal NOT DETECTED [facility] Comment on above: Performed By: #### C VDAGS #### [facility] [address] [place] [address] Dr. Ashlie Hills Parainfluenza 2 Not detected Normal NOT DETECTED [facility] Comment on above: Performed By: #### C VDAGS #### [facility] [address] [place] [address] Dr. Ashlie Hills Parainfluenza 3 Detected Abnormal NOT DETECTED The [facility] Comment on above: Performed By: #### C VDAGS #### [facility] [address] [place] [address] Dr. Ashlie Hills Parainfluenza 4 Not detected Normal NOT DETECTED [facility] Comment on above: Performed By: #### C VDAGS #### [facility] [address] [place] [address] Dr. Ashlie Hills Rhino/Enterovirus Not detected Normal NOT DETECTED [facility] Comment on above: Performed By: #### C VDAGS #### [facility] [address] [place] [address] Dr. Ashlie Hills RP2 Header 1 RESPIRATORY PANEL: VIRUSES Normal [facility] Comment on above: Performed By: #### C VDAGS #### [facility] [address] [place] [address] Dr. Ashlie DE PAZ Header 2 RESPIRATORY PANEL: BACTERIA Normal [facility] Comment on above: Performed By: #### C VDAGS #### [facility] [address] [place] [address] Dr. Ashlie Hills RSV Not detected Normal NOT DETECTED The [facility] Comment on above: Performed By: #### C VDAGS #### [facility] [address] [place] [address] Dr. Ashlie Hills SARS-CoV-2 (COVID-19) RNA MADDY+probe Ql (Unsp spec) Not detected Normal NOT DETECTED [facility] Comment on above: Performed By: #### C VDAGS #### [facility] [address] [place] [address] Dr. Ashlie Hills XR CHEST 1 Von [...] by: MARYANNE POWER Date: 2022-12-04 22:23 Normal [facility] BLOOD GASES BTYon 12-04-2022 02 MODE ROOM AIR Normal [facility] Comment on above: Performed By: #### C BC #### [facility] [address] [place] [address] Dr. Ashlie Hills ALLENS TEST Positive Normal [facility] Comment on above: Performed By: #### C BC #### [facility] [address] [place] [address] Dr. Ashlie Hills Base excess Calc (Bld) [Moles/Vol] 5.4 mmol/L Critically high -2.0-2.0 [facility] Comment on above: Performed By: #### C BC #### [facility] [address] [place] [address] Dr. Ashlie Hills BIPAP PRESSURE Normal [facility] Comment on above: Performed By: #### C BC #### [facility] [address] [place] [address] Dr. Ashlie Hills CPAP Normal [facility] Comment on above: Performed By: #### C BC #### [facility] [address] [place] [address] Dr. Ashlie Hills FIO2 Normal [facility] Comment on above: Performed By: #### C BC #### [facility] [address] [place] [address] Dr. Ashlie Hills HCO3 (Bld) [Moles/Vol] 30.8 mmol/L Critically high 22.0-26 .0 [facility] Comment on above: Performed By: #### C BC #### [facility] [address] [place] [address] Dr. Ashlie Hills LPM [facility] Comment on above: Performed By: #### C BC #### [facility] [address] [place] [address] Dr. Ashlie Hills MINUTE VOLUME Normal [facility] Comment on above: Performed By: #### C BC #### [facility] [address] [place] [address] Dr. Ashlie Hills Oxygen (Bld) [Partial pressure] 46.3 mm[Hg] Critically low 80.0-100.0 [facility] Comment on above: Performed By: #### C BC #### [facility] [address] [place] [address] Dr. Ashlie Hills Oxygen saturation in Blood 83.9 % Critically low 95.0-100.0 [facility] Comment on above: Performed By: #### C BC #### [facility] [address] [place] [address] Dr. Ashlie Hills PCO2 54.2 mmHg Critically high 35.0-45.0 [facility] Comment on above: Performed By: #### C BC #### [facility] [address] [place] [address] Dr. Ashlie Hills PEEP [facility] Comment on above: Performed By: #### C BC #### [facility] [address] [place] [address] Dr. Ashlie Hills pH (Bld) 7.363 [pH] Normal 7.350-7.450 [facility] Comment on above: Performed By: #### C BC #### [facility] [address] [place] [address] Dr. Ashlie Hills PIP [facility] Comment on above: Performed By: #### C BC #### [facility] [address] [place] [address] Dr. Ashlie Hills PS [facility] Comment on above: Performed By: #### C BC #### [facility] [address] [place] [address] Dr. Ashlie Hills PUNCTURE SITE LR Normal [facility] Comment on above: Performed By: #### C BC #### [facility] [address] [place] [address] Dr. Ashlie Hills RATE [facility] Comment on above: Performed By: #### C BC #### [facility] [address] [place] [address] Dr. Ashlie Hills VENT MODE [facility] Comment on above: Performed By: #### C BC #### [facility] [address] [place] [address] Dr. Ashlie Hills [facility] Comment on above: Performed By: #### C BC #### [facility] [address] [place] [address] Dr. Ashlie Hills BNPon 12-04-2022 Natriuretic peptide B (Bld) [Mass/Vol] 76.0 pg/mL Normal <=900.0 [facility] Comment on above: Performed By: #### P OCGLUC #### [facility] [address] [place] [address] Dr. Ashlie Hills CBC AUTO DIFFon 12-04-2022 BASO # 0.1 103/ul Normal 0.0-0.1 [facility] Comment on above: Performed By: #### C BC #### [facility] [address] [place] [address] Dr. Ashlie Hills Basophils/100 WBC (Bld) 0.6 % Normal 0.2-2.0 [facility] Comment on above: Performed By: #### C BC #### [facility] [address] [place] [address] Dr. Ashlie Hills EO # 0.2 103/ul Normal 0.0-0.7 [facility] Comment on above: Performed By: #### C BC #### [facility] [address] [place] [address] Dr. Ashlie Hills Eosinophils/100 WBC (Bld) 1.9 % Normal 0.9-7.0 [facility] Comment on above: Performed By: #### C BC #### [facility] [address] [place] [address] Dr. Ashlie Hills Erythrocyte distribution width (RBC) [Ratio] 15.0 % Normal 11.0-15.0 [facility] Comment on above: Performed By: #### C BC #### [facility] [address] [place] [address] Dr. Ashlie Hills Hematocrit (Bld) [Volume fraction] 49.1 % Critically high 36.0-48.0 [facility] Comment on above: Performed By: #### C BC #### [facility] [address] [place] [address] Dr. Ashlie Hills Hemoglobin (Bld) [Mass/Vol] 15.6 g/dL Normal 12.0-16.0 [facility] Comment on above: Performed By: #### C BC #### [facility] [address] [place] [address] Dr. Ashlie Hills IG # 0.02 10e3/ul Normal 0.00-0.03 [facility] Comment on above: Performed By: #### C BC #### [facility] [address] [place] [address] Dr. Ashlie Hills IG % 0.2 % Normal 0.0-0.5 [facility] Comment on above: Performed By: #### C BC #### [facility] [address] [place] [address] Dr. Ashlie Hills LYMPH # 2.8 103/ul Normal 1.2-3.8 [facility] Comment on above: Performed By: #### C BC #### [facility] [address] [place] [address] Dr. Ashlie Hills Lymphocytes/100 WBC (Bld) 29.9 % Normal 20.5-60.0 [facility] Comment on above: Performed By: #### C BC #### [facility] [address] [place] [address] Dr. Ashlie Hills MANUAL DIFF REQ NO Normal [facility] Comment on above: Performed By: #### C BC #### [facility] [address] [place] [address] Dr. Ashlie Hills MCH (RBC) [Entitic mass] 28.5 pg Normal 26.7-34.0 [facility] Comment on above: Performed By: #### C BC #### [facility] [address] [place] [address] Dr. Ashlie Hills MCHC (RBC) [Mass/Vol] 31.8 g/dL Normal 29.9-35.2 [facility] Comment on above: Performed By: #### C BC #### [facility] [address] [place] [address] Dr. Ashlie Hills MCV (RBC) [Entitic vol] 89.8 fL Normal 81.0-99.0 [facility] Comment on above: Performed By: #### C BC #### [facility] [address] [place] [address] Dr. Ashlie Hills MONO # 1.0 103/ul Critically high 0.3-0.8 [facility] Comment on above: Performed By: #### C BC #### [facility] [address] [place] [address] Dr. Ashlie Hills Monocytes/100 WBC (Bld) 10.6 % Normal 1.7-12.0 [facility] Comment on above: Performed By: #### C BC #### [facility] [address] [place] [address] Dr. Ashlie Hills NEUT # 5.3 103/ul Normal 1.4-6.5 [facility] Comment on above: Performed By: #### C BC #### [facility] [address] [place] [address] Dr. Ashlie Hills Neutrophils/100 WBC (Bld) 56.8 % Normal 43.0-75.0 [facility] Comment on above: Performed By: #### C BC #### [facility] [address] [place] [address] Dr. Ashlie Hills Platelet mean volume (Bld) [Entitic vol] 12.5 fL Normal 9.5-13.5 [facility] Comment on above: Performed By: #### C BC #### [facility] [address] [place] [address] Dr. Ashlie Hills PLT 109 103/ul Critically low 150-450 [facility] Comment on above: Performed By: #### C BC #### [facility] [address] [place] [address] Dr. Ashlie Hills RBC 5.47 106/ul Critically high 4.20-5.40 [facility] Comment on above: Performed By: #### C BC #### [facility] [address] [place] [address] Dr. Ashlie Hills WBC 9.4 103/ul Normal 4.0-11.0 [facility] Comment on above: Performed By: #### C BC #### [facility] [address] [place] [address] Dr. Ashlie Hills PROF 14(COMP METB)on 023 Albumin [Mass/Vol] 2.9 g/dL Critically low 3.4-5.0 [facility] Comment on above: Performed By: #### C BC #### [facility] [address] [place] [address] Dr. Ashlie Hills Albumin/Globulin [Mass ratio] 0.6 {ratio} Normal [facility] Comment on above: Performed By: #### C BC #### [facility] [address] [place] [address] Dr. Ashlie Hills ALP [Catalytic activity/Vol] 64 U/L Normal 46-116 [facility] Comment on above: Performed By: #### C BC #### [facility] [facility] [address] [place] [address] Dr. Ashlie Hills ALT [Catalytic activity/Vol] 16 U/L Normal 14-59 [facility] Comment on above: Performed By: #### C BC #### [facility] [address] [place] [address] Dr. Ashlie Hills Anion gap [Moles/Vol] 9.6 mmol/L Normal [facility] Comment on above: Performed By: #### C BC #### [facility] [address] [place] [address] Dr. Ashlie Hills AST [Catalytic activity/Vol] 16 U/L Normal 15-37 [facility] Comment on above: Performed By: #### C BC #### [facility] [address] [address] [address] Ashlie Hills Bilirubin [Mass/Vol] 0.5 mg/dL Normal 0.2-1.0 [facility] Comment on above: Performed By: #### C BC #### [facility] [address] [address] [address] Ashlie Hills Calcium [Mass/Vol] 8.7 mg/dL Normal 8.5-10.1 [facility] Comment on above: Performed By: #### C BC #### [facility] [address] [address] [address] Ashlie Hills Chloride [Moles/Vol] 103 mmol/L Normal 98-107 [facility] Comment on above: Performed By: #### C BC #### [facility] [address] [place] [address] Dr. Ashlie Hills CO2 [Moles/Vol] 30.7 mmol/L Normal 21.0-32.0 [facility] Comment on above: Performed By: #### C BC #### [facility] [address] [place] [address] Dr. Ashlie Hills Creatinine [Mass/Vol] 0.96 mg/dL Normal 0.55-1.02 [facility] Comment on above: Performed By: #### C BC #### [facility] [address] [place] [address] Dr. Ashlie Hills EGFR-AF VENEZUELAN >60 Normal >=60 The [facility] Comment on above: Performed By: #### C BC #### [facility] [address] [place] [address] Dr. Ashlie Hills EGFR-NON AF VENEZUELAN >60 Normal >=60 [facility] Comment on above: Performed By: #### C BC #### [facility] [address] [place] [address] Dr. Ashlie Hills Globulin (S) [Mass/Vol] 4.7 g/dL Normal [facility] Comment on above: Performed By: #### C BC #### [facility] [address] [address] [address] Ashlie Hills Glucose [Mass/Vol] 170 mg/dL Critically high 74-106 [facility] Comment on above: Performed By: #### C BC #### [facility] [address] [address] [address] Ashlie Hills Potassium [Moles/Vol] 4.3 mmol/L Normal 3.5-5.1 [facility] Comment on above: Performed By: #### C BC #### [facility] [address] [address] [address] Ashlie Hills Protein [Mass/Vol] 7.6 g/dL Normal 6.4-8.2 [facility] Comment on above: Performed By: #### C BC #### [facility] [address] [place] [address] Dr. Ashlie Hills Sodium [Moles/Vol] 139 mmol/L Normal 136-145 [facility] Comment on above: Performed By: #### C BC #### [facility] [address] [address] [address] Ashlie Hills Urea nitrogen [Mass/Vol] 16.0 mg/dL Normal 7.0-18.0 [facility] Comment on above: Performed By: #### C BC #### [facility] [address] [place] [address] Dr. Ashlie Hills Urea nitrogen/Creatinine [Mass ratio] 16.7 mg/mg Normal [facility] Comment on above: Performed By: #### C BC #### [facility] [address] [place] [address] Dr. Ashlie Hills SYMPTOMATIC COVID-19 ANTIGEN on 12-04-2022 EUA Statement SEE BELOW Normal [facility] Comment [...] By: #### C VDAGS #### [facility] [address] [place] [address] Dr. Ashlie Hills SARS-CoV-2 (COVID-19) RNA MADDY+probe Ql (Unsp spec) Negative Normal NEGATIVE [facility] Comment on above: Performed By: #### C VDAGS #### [facility] [address] [place] [address] Dr. Ashlie Hills TROPONIN, HIGH SENSITIVITYon 12-04-2022 HSTROP 8.9 pg/mL Normal 4.0-51.3 [facility] Comment on above: Result Comment: CUT- OFF POINTS HAVE BEEN ESTABLISHED BASED ON THE FOURTH UNIVERSAL DEFINITIONS OF MYOCARDIAL INFARCTION. THE UPPER REFERENCE LIMIT (URL) OF TROPONIN, DEFINED THE 99TH PERCENTILE OF cTnI DISTRIBUTION IN A REFERENCE POPULATION, HAS BEEN CONFIRMED THE DECISION THRESHOLD FOR GA DIAGNOSIS. Performed By: #### P OCGLUC #### [facility] [address] [place] [address] Dr. Ashlie Hills MICROALBUMIN, RAND URon 05- mALB 35.8 mg/dL Critically high <=30.0 [facility] Comment on above: Performed By: #### C VDAGS #### [facility] [address] [place] [address] Dr. Ashlie Hills UA RANDOM W/MICROSCOPICon BACTERIA NONE SEEN Normal NONE SEEN [facility] Comment on above: Performed By: #### C VDAGS #### [facility] [address] [place] [address] Dr. Ashlie Hills Bilirubin Ql (U) Negative Normal NEGATIVE The [facility] Comment on above: Performed By: #### C VDAGS #### [facility] [address] [place] [address] Dr. Ashlie Hills CAST SEEN Abnormal NONE SEEN [facility] Comment on above: Performed By: #### C VDAGS #### [facility] [address] [place] [address] Dr. Ashlie Hills Clarity (U) CLEAR Normal CLEAR [facility] Comment on above: Performed By: #### C VDAGS #### [facility] [address] [place] [address] Dr. Ashlie Hills Color (U) YELLOW Normal YELLOW [facility] Comment on above: Performed By: #### C VDAGS #### [facility] [address] [place] [address] Dr. Ashlie Hills Crystals LM Nom (Urine sed) NONE SEEN Normal NONE SEEN [facility] Comment on above: Performed By: #### C VDAGS #### [facility] [address] [place] [address] Dr. Ashlie Hills Epithelial cells LM Ql (Urine sed) MODERATE Abnormal NONE SEEN /RARE [facility] Comment on above: Performed By: #### C VDAGS #### [facility] [address] [place] [address] Dr. Ashlie Hills Glucose Ql (U) Negative Normal NEGATIVE The [facility] Comment on above: Performed By: #### C VDAGS #### [facility] [address] [place] [address] Dr. Ashlie Hills Hemoglobin Ql (U) TRACE-INTACT Abnormal NEGATIVE [facility] Comment on above: Performed By: #### C VDAGS #### [facility] [address] [place] [address] Dr. Ashlie Hills Ketones Ql (U) Negative Normal NEGATIVE [facility] Comment on above: Performed By: #### C VDAGS #### [facility] [address] [place] [address] Dr. Ashlie Hills LEUKOCYTES Negative Normal NEGATIVE [facility] Comment on above: Performed By: #### C VDAGS #### [facility] [address] [place] [address] Dr. Ashlie Hills MUCOUS NONE SEEN Normal NONE SEEN [facility] Comment on above: Performed By: #### C VDAGS #### [facility] [address] [address] [address] Ashlie Hills Nitrite Ql (U) Negative Normal NEGATIVE [facility] Comment on above: Performed By: #### C VDAGS #### [facility] [address] [place] [address] Dr. Ashlie Hills pH (U) 5.0 [pH] Normal 5-9 [facility] Comment on above: Performed By: #### C VDAGS #### [facility] [address] [place] [address] Dr. Ashlie Hills RBC 0-2 Normal 0-2 [facility] Comment on above: Performed By: #### C VDAGS #### [facility] [address] [place] [address] Dr. Ashlie Hills SPEC GRAVITY 1.030 Abnormal 1.005-<=1.025 [facility] Comment on above: Performed By: #### C VDAGS #### [facility] [address] [place] [address] Dr. Ashlie Hills UA PROTEIN 100 mg/dl Abnormal NEGATIVE/ TRACE [facility] Comment on above: Performed By: #### C VDAGS #### [facility] [address] [place] [address] Dr. Ashlie Hills Urobilinogen Qn (U) 0.2 {Little'U}/dL Normal 0.2 - 1. 0 [facility] Comment on above: Performed By: #### C VDAGS #### [facility] [address] [place] [address] Dr. Ashlie Hills WBC NONE SEEN Normal NONE SEEN [facility] Comment on above: Performed By: #### C VDAGS #### [facility] [address] [place] [address] Dr. Ashlie Hills CBC AUTO DIFFon 11-22-2022 BASO # 0.0 103/ul Normal 0.0-0.1 [facility] Comment on above: Performed By: #### C BC #### [facility] [address] [address] [address] Ashlie Hills Basophils/100 WBC (Bld) 0.3 % Normal 0.2-2.0 [facility] Comment on above: Performed By: #### C BC #### [facility] [address] [address] [address] Ashlie Hills EO # 0.4 103/ul Normal 0.0-0.7 [facility] Comment on above: Performed By: #### C BC #### [facility] [address] [address] [address] Ashlie Hills Eosinophils/100 WBC (Bld) 3.0 % Normal 0.9-7.0 [facility] Comment on above: Performed By: #### C BC #### [facility] [address] [place] [address] Dr. Ashlie Hills Erythrocyte distribution width (RBC) [Ratio] 15.3 % Critically high 11.0-15.0 [facility] Comment on above: Performed By: #### C BC #### [facility] [address] [address] [address] Ashlie Hills Hematocrit (Bld) [Volume fraction] 52.4 % Critically high 36.0-48.0 [facility] Comment on above: Performed By: #### C BC #### [facility] [address] [place] [address] Dr. Ashlie Hills Hemoglobin (Bld) [Mass/Vol] 16.8 g/dL Critically high 12.0-16.0 [facility] Comment on above: Performed By: #### C BC #### [facility] [address] [place] [address] Dr. Ashlie Hills IG # 0.04 10e3/ul Critically high 0.00-0.03 [facility] Comment on above: Performed By: #### C BC #### [facility] [address] [address] [address] Ashlie Hills IG % 0.3 % Normal 0.0-0.5 [facility] Comment on above: Performed By: #### C BC #### [facility] [address] [address] [address] Ashlie Hills LYMPH # 4.5 103/ul Critically high 1.2-3.8 [facility] Comment on above: Performed By: #### C BC #### [facility] [address] [address] [address] Ashlie Hills Lymphocytes/100 WBC (Bld) 33.2 % Normal 20.5-60.0 [facility] Comment on above: Performed By: #### C BC #### [facility] [address] [place] [address] Dr. Ashlie Hills MANUAL DIFF REQ NO Normal [facility] Comment on above: Performed By: #### C BC #### [facility] [address] [place] [address] Dr. Ashlie Hills MCH (RBC) [Entitic mass] 28.0 pg Normal 26.7-34.0 [facility] Comment on above: Performed By: #### C BC #### [facility] [address] [place] [address] Dr. Ashlie Hills MCHC (RBC) [Mass/Vol] 32.1 g/dL Normal 29.9-35.2 [facility] Comment on above: Performed By: #### C BC #### [facility] [address] [place] [address] Dr. Ashlie Hills MCV (RBC) [Entitic vol] 87.3 fL Normal 81.0-99.0 [facility] Comment on above: Performed By: #### C BC #### [facility] [address] [place] [address] Dr. Ashlie Hills MONO # 0.8 103/ul Normal 0.3-0.8 [facility] Comment on above: Performed By: #### C BC #### [facility] [address] [place] [address] Dr. Ashlie Hills Monocytes/100 WBC (Bld) 5.7 % Normal 1.7-12.0 [facility] Comment on above: Performed By: #### C BC #### [facility] [address] [address] [address] Ashlie Hills NEUT # 7.8 103/ul Critically high 1.4-6.5 [facility] Comment on above: Performed By: #### C BC #### [facility] [address] [address] [address] Ashlie Hills Neutrophils/100 WBC (Bld) 57.5 % Normal 43.0-75.0 [facility] Comment on above: Performed By: #### C BC #### [facility] [address] [address] [address] Ashlie Hills Platelet mean volume (Bld) [Entitic vol] 12.0 fL Normal 9.5-13.5 [facility] Comment on above: Performed By: #### C BC #### [facility] [address] [place] [address] Dr. Ashlie Hills PLT 152 103/ul Normal 150-450 [facility] Comment on above: Performed By: #### C BC #### [facility] [address] [place] [address] Dr. Ashlie Hills RBC 6.00 106/ul Critically high 4.20-5.40 [facility] Comment on above: Performed By: #### C BC #### [facility] [address] [place] [address] Dr. Ashlie Hills WBC 13.6 103/ul Critically high 4.0-11.0 [facility] Comment on above: Performed By: #### C BC #### [facility] [address] [place] [address] Dr. Ashlie Hills LIPID PROFILEon 11-22-2022 CHOL-HDL RATIO NORM SEE BELOW Normal [facility] Comment on above: Result Comment: 3.3 - 4.4 LOW RISK 4.4 - 7.1 AVERAGE RISK 7.1 - 11.0 MODERATE RISK >11.0 HIGH RISK Performed By: #### C BC #### [facility] [address] [place] [address] Dr. Ashlie Hills Cholesterol [Mass/Vol] 139 mg/dL Normal <=200 [facility] Comment on above: Performed By: #### C BC #### [facility] [address] [address] [address] Ashlie Hills Cholesterol in HDL [Mass/Vol] 35 mg/dL Critically low 40-60 [facility] Comment on above: Performed By: #### C BC #### [facility] [address] [place], [place] [address] Dr. Ashlie Hills Cholesterol in LDL [Mass/Vol] 67.4 mg/dL Normal [facility] Comment on above: Performed By: #### C BC #### [facility] [address] [address] [address] Ashlie Hills Cholesterol.total/Chol esterol in HDL [Mass ratio] 4.0 {ratio} Normal [facility] Comment on above: Performed By: #### C BC #### [facility] [address] [address] [address] Ashlie Hills HDL NORMAL > or = 60 mg/dl - LOW CARDIOVASCULAR RISK <40 mg/dl - HIGH CARDIOVASCULAR RISK Normal [facility] Comment on above: Performed By: #### C BC #### [facility] [address] [address] [address] Ashlie Hills LDL CALC NORMAL SEE BELOW Normal [facility] Comment on above: Result Comment: <100 mg/dl OPTIMAL 100 - 129 mg/dl NEAR OR ABOVE OPTIMAL 130 - 159 mg/dl BORDERLINE HIGH 160 - 189 mg/dl HIGH >190 mg/dl VERY HIGH Performed By: #### C BC #### [facility] [address] [address] [address] Ashlie Hills Triglyceride [Mass/Vol] 183 mg/dL Critically high <=150 [facility] Comment on above: Performed By: #### C BC #### [facility] [address] [address] [address] Ashlie Hills VLDL CALC 36.6 mg/dL Normal [facility] Comment on above: Performed By: #### C BC #### [facility] [address] [place] [address] Dr. 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 LOCATION: [facility] BREAST COMPOSITION: Almost entirely fatty. FINDINGS: [...] Veloz M.D. on 11/22/2022 at 12:09 Normal [facility] PROF 14(COMP METB)on 023 Albumin [Mass/Vol] 3.0 g/dL Critically low 3.4-5.0 Th e [facility] Comment on above: Performed By: #### C BC #### [facility] [address] [place], [place] [address] Dr. Ashlie Hills Albumin/Globulin [Mass ratio] 0.6 {ratio} Normal [facility] Comment on above: Performed By: #### C BC #### [facility] [address] [place], [place] [address] Dr. Ashlie Hills ALP [Catalytic activity/Vol] 68 U/L Normal 46-116 [facility] Comment on above: Performed By: #### C BC #### [facility] [address] [address] [address] Ashlie Hills ALT [Catalytic activity/Vol] 14 U/L Normal 14-59 [facility] Comment on above: Performed By: #### C BC #### [facility] [address] [address] [address] Ashlie Hills Anion gap [Moles/Vol] 12.1 mmol/L Normal [facility] Comment on above: Performed By: #### C BC #### [facility] [address] [address] [address] Ashlie Hills AST [Catalytic activity/Vol] 9 U/L Critically low 15-37 [facility] Comment on above: Performed By: #### C BC #### [facility] [address] [address] [address] Ashlie Hills Bilirubin [Mass/Vol] 0.4 mg/dL Normal 0.2-1.0 [facility] Comment on above: Performed By: #### C BC #### [facility] [address] [address] [address] Ashlie Hills Calcium [Mass/Vol] 9.0 mg/dL Normal 8.5-10.1 [facility] Comment on above: Performed By: #### C BC #### [facility] [address] [address] [address] Ashlie Hills Chloride [Moles/Vol] 105 mmol/L Normal 98-107 [facility] Comment on above: Performed By: #### C BC #### [facility] [address] [address] [address] Ashlie Hills CO2 [Moles/Vol] 30.7 mmol/L Normal 21.0-32.0 [facility] Comment on above: Performed By: #### C BC #### [facility] [address] [address] [address] Ashlie Hills Creatinine [Mass/Vol] 0.77 mg/dL Normal 0.55-1.02 [facility] Comment on above: Performed By: #### C BC #### [facility] [address] [address] [address] Ashlie Hills EGFR-AF VENEZUELAN >60 Normal >=60 [facility] Comment on above: Performed By: #### C BC #### [facility] [address] [address] [address] Ashlie Hills EGFR-NON AF VENEZUELAN >60 Normal >=60 [facility] Comment on above: Performed By: #### C BC #### [facility] [address] [address] [address] Ashlie Hills Globulin (S) [Mass/Vol] 4.8 g/dL Normal [facility] Comment on above: Performed By: #### C BC #### [facility] [address] [address] [address] Ashlie Hills Glucose [Mass/Vol] 162 mg/dL Critically high 74-106 [facility] Comment on above: Performed By: #### C BC #### [facility] [address] [address] [address] Ashlie Hills Potassium [Moles/Vol] 3.8 mmol/L Normal 3.5-5.1 [facility] Comment on above: Performed By: #### C BC #### [facility] [address] [address] [address] Ashlie Hills Protein [Mass/Vol] 7.8 g/dL Normal 6.4-8.2 [facility] Comment on above: Performed By: #### C BC #### [facility] [address] [address] [address] Ashlie Hills Sodium [Moles/Vol] 144 mmol/L Normal 136-145 [facility] Comment on above: Performed By: #### C BC #### [facility] [address] [address] [address] Ashlie Hills Urea nitrogen [Mass/Vol] 24.0 mg/dL Critically high 7.0-18.0 [facility] Comment on above: Performed By: #### C BC #### [facility] [address] [place] [address] Dr. Ashlie Hills Urea nitrogen/Creatinine [Mass ratio] 31.2 mg/mg Normal [facility] Comment on above: Performed By: #### C BC #### [facility] [address] [place] [address] Dr. Ashlie Hills CBC AUTO DIFFon 10-05-2022 BASO # 0.1 103/ul Normal 0.0-0.1 [facility] Comment on above: Performed By: #### C BC #### [facility] [address] [place] [address] Dr. Ashlie Hills Basophils/100 WBC (Bld) 0.6 % Normal 0.2-2.0 [facility] Comment on above: Performed By: #### C BC #### [facility] [address] [place] [address] Dr. Ashlie Hills EO # 0.3 103/ul Normal 0.0-0.7 [facility] Comment on above: Performed By: #### C BC #### [facility] [address] [place] [address] Dr. Ashlie Hills Eosinophils/100 WBC (Bld) 2.1 % Normal 0.9-7.0 [facility] Comment on above: Performed By: #### C BC #### [facility] [address] [place] [address] Dr. Ashlie Hills Erythrocyte distribution width (RBC) [Ratio] 15.9 % Critically high 11.0-15.0 [facility] Comment on above: Performed By: #### C BC #### [facility] [address] [place] [address] Dr. Ashlie Hills Hematocrit (Bld) [Volume fraction] 51.8 % Critically high 36.0-48.0 [facility] Comment on above: Performed By: #### C BC #### [facility] [address] [place] [address] Dr. Ashlie Hills Hemoglobin (Bld) [Mass/Vol] 16.6 g/dL Critically high 12.0-16.0 [facility] Comment on above: Performed By: #### C BC #### [facility] [address] [address] [address] Ashlie Hills IG # 0.03 10e3/ul Normal 0.00-0.03 [facility] Comment on above: Performed By: #### C BC #### [facility] [address] [address] [address] Ashlie Hills IG % 0.2 % Normal 0.0-0.5 [facility] Comment on above: Performed By: #### C BC #### [facility] [address] [place] [address] Dr. Ashlie Hills LYMPH # 3.9 103/ul Critically high 1.2-3.8 [facility] Comment on above: Performed By: #### C BC #### [facility] [address] [place] [address] Dr. Ashlie Hills Lymphocytes/100 WBC (Bld) 31.7 % Normal 20.5-60.0 [facility] Comment on above: Performed By: #### C BC #### [facility] [address] [place] [address] Dr. Ashlie Hills MANUAL DIFF REQ NO Normal [facility] Comment on above: Performed By: #### C BC #### [facility] [address] [place] [address] Dr. Ashlie Hills MCH (RBC) [Entitic mass] 27.9 pg Normal 26.7-34.0 [facility] Comment on above: Performed By: #### C BC #### [facility] [address] [place] [address] Dr. Ashlie Hills MCHC (RBC) [Mass/Vol] 32.0 g/dL Normal 29.9-35.2 [facility] Comment on above: Performed By: #### C BC #### [facility] [address] [place] [address] Dr. Ashlie Hills MCV (RBC) [Entitic vol] 87.1 fL Normal 81.0-99.0 [facility] Comment on above: Performed By: #### C BC #### [facility] [address] [address] [address] Ashlie Hills MONO # 0.7 103/ul Normal 0.3-0.8 [facility] [facility] Comment on above: Performed By: #### C BC #### [facility] [address] [place] [address] Dr. Ashlie Hills Monocytes/100 WBC (Bld) 5.8 % Normal 1.7-12.0 [facility] Comment on above: Performed By: #### C BC #### [facility] [address] [place] [address] Dr. Ashlie Hills NEUT # 7.3 103/ul Critically high 1.4-6.5 [facility] Comment on above: Performed By: #### C BC #### [facility] [address] [place] [address] Dr. Ashlie Hills Neutrophils/100 WBC (Bld) 59.6 % Normal 43.0-75.0 [facility] Comment on above: Performed By: #### C BC #### [facility] [address] [place] [address] Dr. Ashlie Hills Platelet mean volume (Bld) [Entitic vol] 11.7 fL Normal 9.5-13.5 [facility] Comment on above: Performed By: #### C BC #### [facility] [address] [place] [address] Dr. Ashlie Hills PLT 117 103/ul Critically low 150-450 [facility] Comment on above: Performed By: #### C BC #### [facility] [address] [place] [address] Dr. Ashlie Hills RBC 5.95 106/ul Critically high 4.20-5.40 The [facility] Comment on above: Performed By: #### C BC #### [facility] [address] [place] [address] Dr. Ashlie Hills WBC 12.3 103/ul Critically high 4.0-11.0 The [facility] Comment on above: Performed By: #### C BC #### [facility] [address] [place] [address] ABD/PELV W CONon [...] Date: 2022-10-05 13:13 Normal [facility] ER URINE PROFILEon 3 Bilirubin Ql (U) Negative Normal NEGATIVE [facility] Comment on above: Performed By: #### P OCGLUC #### [facility] [address] [place] [address] Dr. Ashlie Hills Clarity (U) CLEAR Normal CLEAR [facility] Comment on above: Performed By: #### P OCGLUC #### [facility] [address] [place] [address] Dr. Ashlie Hills Color (U) YELLOW Normal YELLOW [facility] Comment on above: Performed By: #### P OCGLUC #### [facility] [address] [place] [address] Dr. Ashlie Hills ERUAHD A micrscopic examination will be performed if indicated. Normal [facility] Comment on above: Performed By: #### P OCGLUC #### [facility] [address] [address] [address] Ashlie Hills Glucose Ql (U) Negative Normal NEGATIVE [facility] Comment on above: Performed By: #### P OCGLUC #### [facility] [address] [address] [address] Ashlie Hills Hemoglobin Ql (U) Negative Normal NEGATIVE [facility] Comment on above: Performed By: #### P OCGLUC #### [facility] [address] [address] [address] Ashlie Hills Ketones Ql (U) Negative Normal NEGATIVE [facility] Comment on above: Performed By: #### P OCGLUC #### [facility] [address] [address] [address] Ashlie Hills LEUKOCYTES Negative Normal NEGATIVE [facility] Comment on above: Performed By: #### P OCGLUC #### [facility] [address] [place] [address] Dr. Ashlie Hills Nitrite Ql (U) Negative Normal NEGATIVE [facility] Comment on above: Performed By: #### P OCGLUC #### [facility] [address] [place] [address] Dr. Ashlie Hills pH (U) 6.0 [pH] Normal 5-9 [facility] Comment on above: Performed By: #### P OCGLUC #### [facility] [address] [place] [address] Dr. Ashlie Hills Protein (U) [Mass/Vol] 100 mg/dL Abnormal NEGAT YURY/ TRACE [facility] Comment on above: Performed By: #### P OCGLUC #### [facility] [address] [place] [address] Dr. Ashlie Hills SPEC GRAVITY 1.010 Normal 1.005-<=1.025 [facility] Comment on above: Performed By: #### P OCGLUC #### [facility] [address] [place] [address] Dr. Ashlie Hills UR MICRO IND INDICATED Normal [facility] Comment on above: Performed By: #### P OCGLUC #### [facility] [address] [place] [address] Dr. Ashlie Hills Urobilinogen Qn (U) 1.0 {Little'U}/dL Normal 0.2 - 1. 0 [facility] Comment on above: Performed By: #### P OCGLUC #### [facility] [address] [place] [address] Dr. Ashlie Hills LIPASEon 10-05-2022 Lipase [Catalytic activity/Vol] 1771.0 U/L Critically high 73.0-393.0 [facility] Comment on above: Performed By: #### C BC #### [facility] [address] [place] [address] Dr. Ashlie Hills PREG HCG QUALon 10-05-2022 , QUAL Negative Normal NEGATIVE [facility] Comment on above: Performed By: #### P OCGLUC #### [facility] [address] [place] [address] Dr. Ashlie Hills PROF 14(COMP METB)on 023 Albumin [Mass/Vol] 3.2 g/dL Critically low 3.4-5.0 [facility] Comment on above: Performed By: #### C BC #### [facility] [address] [place] [address] Dr. Ashile Hills Albumin/Globulin [Mass ratio] 0.7 {ratio} Normal [facility] Comment on above: Performed By: #### C BC #### [facility] [address] [place] [address] Dr. Ashlie Hills ALP [Catalytic activity/Vol] 70 U/L Normal 46-116 [facility] Comment on above: Performed By: #### C BC #### [facility] [address] [place] [address] Dr. Ashlie Hills ALT [Catalytic activity/Vol] 11 U/L Critically low 14-59 [facility] Comment on above: Performed By: #### C BC #### [facility] [address] [place] [address] Dr. Ashlie Hills Anion gap [Moles/Vol] 10.3 mmol/L Normal [facility] Comment on above: Performed By: #### C BC #### [facility] [address] [address] [address] Ashlie Hills AST [Catalytic activity/Vol] 11 U/L Critically low 15-37 [facility] Comment on above: Performed By: #### C BC #### [facility] [address] [address] [address] Ashlie Hills Bilirubin [Mass/Vol] 0.9 mg/dL Normal 0.2-1.0 [facility] Comment on above: Performed By: #### C BC #### [facility] [address] [address] [address] Ashlie Hills Calcium [Mass/Vol] 9.3 mg/dL Normal 8.5-10.1 [facility] Comment on above: Performed By: #### C BC #### [facility] [address] [place] [address] Dr. Ashlie Hills Chloride [Moles/Vol] 105 mmol/L Normal 98-107 [facility] Comment on above: Performed By: #### C BC #### [facility] [address] [address] [address] Ashlie Hills CO2 [Moles/Vol] 30.6 mmol/L Normal 21.0-32.0 [facility] Comment on above: Performed By: #### C BC #### [facility] [address] [place] [address] Dr. Ashlie Hills Creatinine [Mass/Vol] 0.62 mg/dL Normal 0.55-1.02 [facility] Comment on above: Performed By: #### C BC #### [facility] [address] [address] [address] Ashlie Hills EGFR-AF VENEZUELAN >60 Normal >=60 The [facility] Comment on above: Performed By: #### C BC #### [facility] [address] [address] [address] Ashlie Hills EGFR-NON AF VENEZUELAN >60 Normal >=60 [facility] Comment on above: Performed By: #### C BC #### [facility] [address] [address] [address] Ashlie Hills Globulin (S) [Mass/Vol] 4.6 g/dL Normal [facility] Comment on above: Performed By: #### C BC #### [facility] [address] [place] [address] Dr. Ashlie Hills Glucose [Mass/Vol] 85 mg/dL Normal 74-106 [facility] Comment on above: Performed By: #### C BC #### [facility] [address] [place] [address] Dr. Ashlie Hills Potassium [Moles/Vol] 3.9 mmol/L Normal 3.5-5.1 [facility] Comment on above: Performed By: #### C BC #### [facility] [address] [place] [address] Dr. Ashlie Hills Protein [Mass/Vol] 7.8 g/dL Normal 6.4-8.2 [facility] Comment on above: Performed By: #### C BC #### [facility] [address] [place] [address] Dr. Ashlie Hills Sodium [Moles/Vol] 142 mmol/L Normal 136-145 [facility] Comment on above: Performed By: #### C BC #### [facility] [address] [place] [address] Dr. Ashlie Hills Urea nitrogen [Mass/Vol] 12.0 mg/dL Normal 7.0-18.0 [facility] Comment on above: Performed By: #### C BC #### [facility] [address] [place] [address] Dr. Ashlie Hills Urea nitrogen/Creatinine [Mass ratio] 19.4 mg/mg Normal [facility] Comment on above: Performed By: #### C BC #### [facility] [address] [place] [address] Dr. Ashlie Hills URINE MICROSCOPIC ONLYon BACTERIA TRACE Abnormal NONE SEEN [facility] Comment on above: Performed By: #### P OCGLUC #### [facility] [address] [place] [address] Dr. Ashlie Hills Bacteria identified Cx Nom (U) NOT INDICATED Normal [facility] Comment on above: Performed By: #### P OCGLUC #### [facility] [address] [place] [address] Dr. Ashlie Hills CAST NONE SEEN Normal NONE SEEN [facility] Comment on above: Performed By: #### P OCGLUC #### [facility] [address] [place] [address] Dr. Ashlie Hills Crystals LM Nom (Urine sed) NONE SEEN Normal NONE SEEN [facility] Comment on above: Performed By: #### P OCGLUC #### [facility] [address] [place] [address] Dr. Ashlie Hills Epithelial cells LM Ql (Urine sed) MODERATE Abnormal NONE SEEN /RARE [facility] Comment on above: Performed By: #### P OCGLUC #### [facility] [address] [place] [address] Dr. Ashlie Hlils MUCOUS NONE SEEN Normal NONE SEEN [facility] Comment on above: Performed By: #### P OCGLUC #### [facility] [address] [place] [address] Dr. Ashile Hills RBC 0-2 Normal 0-2 [facility] Comment on above: Performed By: #### P OCGLUC #### [facility] [address] [place] [address] Dr. Ashlie Hills WBC 0-2 Abnormal NONE SEEN [facility] Comment on above: Performed By: #### P OCGLUC #### [facility] [address] [place] [address] Dr. Ashlie Hills Covid-19 PCR (CVDTB)on 09-06 SARS-CoV-2 (COVID-19) RNA MADDY+probe Ql (Unsp spec) Detected Abnormal NOT DETECTED [facility] Comment on above: Result Comment: This test is not yet approved or cleared by the [place] FDA. When there are no FDA-approved or cleared tests available, and other criteria are met, FDA can make tests available under an emergency access mechanism called an Emergency Use Authorization (EUA). The EUA for this test is supported by the 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 of Health and Human Service's declaration that [...] By: #### C VDAGS #### [facility] [address] [place] [address] Dr. Ashlie Hills INFLUENZA A AND B AGon 09-21 [facility] SEE BELOW Normal [facility] Comment on above: Result Comment: Nega tive for Flu A protein angiten. Infection due to Flu A cannot be ruled out. Flu A angiten in the sample may be below the detection limit of the test. Performed By: #### I NFLUAB #### [facility] [address] [place] [address] Dr. Ashlie Hills [facility] SEE BELOW Normal [facility] Comment on above: Result Comment: Nega tive for Flu B protein antigen. Infection due to Flu B cannot be ruled out. Flu B antigen in the sample may be below the detection limit of the test. Performed By: #### I NFLUAB #### [facility] [address] [place] [address] Dr. Ashlie Hills INFLUENZA A AG Negative Normal NEGATIVE SEE COMMENT [facility] Comment on above: Performed By: #### I NFLUAB #### [facility] [address] [place] [address] Dr. Ashlie Hills INFLUENZA B AG Negative Normal NEGATIVE SEE COMMENT [facility] Comment on above: Performed By: #### I NFLUAB #### [facility] [address] [place] [address] ABD/PELV W CONon [...] to at least 10/21/2018, unchanged. https://www.ncbi.nlm .nih.gov/pmc/article s/[email or web address]/ Electronically authenticated by: COLLIN HUERTAS Date: 2022-07-27 14:56 Normal [facility] CREATININEon 07-18-2022 Creatinine [Mass/Vol] 0.81 mg/dL Normal 0.55-1.02 [facility] Comment on above: Performed By: #### C BC #### [facility] [address] [place] [address] Dr. Ashlie Hills EGFR-AF VENEZUELAN >60 Normal >=60 The [facility] Comment on above: Performed By: #### C BC #### [facility] [address] [place] [address] Dr. Ashlie Hills EGFR-NON AF VENEZUELAN >60 Normal >=60 [facility] Comment on above: Performed By: #### C BC #### [facility] [address] [place] [address] LOW EXT W [...] Date: 2022-07-18 14:58 Normal [facility] XR KNEE LT 1_2 Von 3 [...] Date: 2022-07-18 12:00 Normal [facility]on [facility]09 SARS-CoV-2 (COVID-19) RNA MADDY+probe Ql (Unsp spec) Not detected Normal NOT DETECTED [facility] Comment on above: Result Comment: This test is not yet approved or cleared by the [place] FDA. When there are no FDA-approved or cleared tests available, and other criteria are met, FDA can make tests available under an emergency access mechanism called an Emergency Use Authorization (EUA). The EUA for this test is supported by the [place] of Health and Human Service's (HHS's) declaration [...] By: #### C BC #### [facility] [address] [place] [address] Dr. Ashlie Hills INFLUENZA A AND B AGon 07-06 [facility] SEE BELOW Normal [facility] Comment on above: Result Comment: Nega tive for Flu A protein angiten. Infection due to Flu A cannot be ruled out. Flu A angiten in the sample may be below the detection limit of the test. Performed By: #### C BC #### [facility] [address] [place] [address] Dr. Ashlie Hills INFLUBNEGH SEE BELOW Normal [facility] Comment on above: Result Comment: Nega tive for Flu B protein antigen. Infection due to Flu B cannot be ruled out. Flu B antigen in the sample may be below the detection limit of the test. Performed By: #### C BC #### [facility] [address] [place] [address] Dr. Ashlie Hills INFLUENZA A AG Negative Normal NEGATIVE SEE COMMENT [facility] Comment on above: Performed By: #### C BC #### [facility] [address] [place] [address] Dr. Ashlie Hills INFLUENZA B AG Negative Normal NEGATIVE SEE COMMENT [facility] Comment on above: Performed By: #### C BC #### [facility] [address] [place] [address] Dr. Ashlie Hills POINT OF CARE GLUCOSEon 10- Glucose [Mass/Vol] 108 mg/dL Critically high 74-106 [facility] Comment on above: Performed By: #### C BC #### [facility] [address] [place] [address] Dr. Ashlie Hills RAGHU by IFAon 03-07-2022 Antinuclear Antibodies, IFA Negative Normal [facility] Comment on above: Result Comment: Nega tive <1:80 Borderline 1:80 Positive >1:80 ICAP nomenclature: AC-0 For more information about Hep-2 cell patterns use ANApatterns.org, the official website for the International Consensus on Antinuclear Antibody (RAGHU) Patterns (ICAP). Performed By: #### A NAIFA #### [facility] [address] [place] [address] Dr. Ashlie Hills IMMUNOFIXATION (TREVON), URINEo n 03-07-2022 TREVON Interpretation:U Comment Normal [facility] Comment on above: Result Comment: No m onoclonality detected. Performed By: #### C BC #### [facility] [address] [place] [address] Dr. Ashlie Hills IMMUNOFIXATION(TREVON),PROTEIN ELEC(PE),FREon 03-07-2022 Albumin [Mass/Vol] 3.0 g/dL Normal 2.9-4.4 [facility] Comment on above: Performed By: #### I NFLUAB #### [facility] [address] [place] [address] Dr. Ashlie Hills Albumin/Globulin [Mass ratio] 0.8 {ratio} Normal 0.7-1.7 [facility] Comment on above: Performed By: #### I NFLUAB #### [facility] [address] [place] [address] Dr. Ashlie Hills Uoxpz-7-Pnldinxw 0.3 g/dL Normal 0.0-0.4 The [facility] Comment on above: Performed By: #### I NFLUAB #### [facility] [address] [place] [address] Dr. Ashlie Hills Oiikh-7-Bgsnbtrv 1.0 g/dL Normal 0.4-1.0 The [facility] Comment on above: Performed By: #### I NFLUAB #### [facility] [address] [place] [address] Dr. Ashlie Hills Beta Globulin 1.8 g/dL Critically high 0.7-1.3 [facility] Comment on above: Performed By: #### I NFLUAB #### [facility] [address] [place] [address] Dr. Ashlie Hills Free Cheraw Lt Chains,S 45.2 mg/L Critically high 3.3-19.4 [facility] Comment on above: Performed By: #### I NFLUAB #### [facility] [address] [address] [address] Ashlie Hills Free Lambda Lt Chains,S 40.3 mg/L Critically high 5.7-26.3 [facility] Comment on above: Performed By: #### I NFLUAB #### [facility] [address] [place] [address] Dr. Ashlie Hills Gamma Globulin 0.8 g/dL Normal 0.4-1.8 [facility] Comment on above: Performed By: #### I NFLUAB #### [facility] [address] [place] [address] Dr. Ashlie Hills Globulin (S) [Mass/Vol] 3.9 g/dL Normal 2.2-3.9 [facility] Comment on above: Performed By: #### I NFLUAB #### [facility] [address] [place] [address] Dr. Ashlie Hills Immunofixation Result, Serum Comment Normal [facility] Comment on above: Result Comment: No m onoclonality detected. Performed By: #### I NFLUAB #### [facility] [address] [place] [address] Dr. Ashlie Hills Immunoglobulin A, Qn, Serum 776 mg/dL Critically high 87-352 [facility] Comment on above: Performed By: #### I NFLUAB #### [facility] [address] [place] [address] Dr. Ashlie Hills Immunoglobulin G, Qn, Serum 955 mg/dL Normal 586-1602 [facility] Comment on above: Performed By: #### I NFLUAB #### [facility] [address] [place] [address] Dr. Ashlie Hills Immunoglobulin M, Qn, Serum 39 mg/dL Normal 26-217 [facility] Comment on above: Performed By: #### I NFLUAB #### [facility] [address] [place] [address] Dr. Ashlie Hills Cheraw/Lambda Ratio, S 1.12 Normal 0.26-1.65 [facility] Comment on above: Performed By: #### I NFLUAB #### [facility] [address] [place] [address] Dr. Ashlie Hills M-Bright Not Observed Normal Not Observed [facility] Comment on above: Performed By: #### I NFLUAB #### [facility] [address] [place] [address] Dr. Ashlie Hills PDF . Normal [facility] Comment on above: Performed By: #### I NFLUAB #### [facility] [address] [place] [address] Dr. Ashlie Hills Please note: Comment Normal [facility] Comment on above: Result Comment: Prot ein electrophoresis scan will follow via computer, mail, or cnc specialist delivery. Performed By: #### I NFLUAB #### [facility] [address] [place] [address] Dr. Ashlie Hills Protein [Mass/Vol] 6.9 g/dL Normal 6.0-8.5 [facility] Comment on above: Performed By: #### I NFLUAB #### [facility] [address] [place] [address] Dr. Ashlie Hills C-PEPTIDE, SERUMon C-Peptide, Serum 3.1 ng/mL Normal 1.1-4.4 [facility] Comment on above: Result Comment: C-Pe ptide reference interval is for fasting patients. Performed By: #### C PEPT #### [facility] [address] [place] [address] Dr. Ashlie Hills HEP B SURFACE ANTIGEN SCREEN on 03-04-2022 HBsAg Screen Negative Normal Negative [facility] Comment on above: Performed By: #### C BC #### [facility] [address] [place] [address] Dr. Ashlie Hills HEPATITIS C VIRUS AB W/ REFL EX QUANTon 03-04-2022 HCV AB <0.1 Normal 0.0-0.9 [facility] Comment on above: Performed By: #### I NFLUAB #### [facility] [address] [place] [address] Dr. Ashlie Hills Interpretation: Comment Normal [facility] Comment on above: Result Comment: Nega tive Not infected with HCV, unless recent infection is suspected or other evidence exists to indicate HCV infection. Performed By: #### I NFLUAB #### [facility] [address] [address] [address] Ashlie Hills MICROALBUMIN/ CREATININE RAT IOon 03-04-2022 Albumin, Urine 367.4 ug/mL Normal Not Estab. [facility] Comment on above: Performed By: #### C BC #### [facility] [address] [address] [address] Ashlie Hills Albumin/ Creatinine Ratio 239 mg/g creat Critically high 0-29 [facility] Comment on above: Result Comment: Norm al: 0 - 29 Moderately increased: 30 - 300 Severely increased: >300 Performed By: #### C BC #### [facility] [address] [address] [address] Ashlie Hills Creatinine, Urine 153.9 mg/dL Normal Not Estab. [facility] Comment on above: Performed By: #### C BC #### [facility] [address] [address] [address] Ashlie Hills VIT D 25-OH LABCORPon 2021 Vitamin D, 25-Hydroxy <4.0 Critically low 30.0-100.0 [facility] Comment on above: Result Comment: Graciela min D deficiency has been defined by the [employer] of [employer] and an Endocrine Society practice guideline as a level of serum 25-OH vitamin D less than 20 ng/mL (1,2). The Endocrine Society went on to further define vitamin D insufficiency as a level between 21 and 29 ng/mL (2). 1. IOM ([employer] of [employer]). 2010. Dietary reference intakes for calcium and D. [place]: The National Academies Press. 2. Lynda MF, [place], Leandra LOPEZ, et al. Evaluation, treatment, and prevention of vitamin D deficiency: an Endocrine Society clinical practice guideline. JCEM. 2010; 96(7):1911-30. Performed By: #### C BC #### [facility] [address] [address] [address] Ashlie Hills GLYCOHEMOGLOBIN A1Con 2021 ADA RECOMMENDATION SEE BELOW Normal [facility] Comment on above: Result Comment: ADA RECOMMENDED LIMIT 4.0 - 6.0 ADA THERAPEUTIC TARGET < 7.0 ACTION SUGGESTED > 7.0 Performed By: #### C VDAGS #### [facility] [address] [place] [address] Dr. Ashlie Hills Glucose [Mass/Vol] 295 mg/dL Normal [facility] Comment on above: Performed By: #### C VDAGS #### [facility] [address] [place] [address] Dr. Ashlie Hills HbA1c (Bld) [Mass fraction] 11.9 % Critically high 4.5-6.2 [facility] Comment on above: Performed By: #### C VDAGS #### [facility] [address] [place] [address] Dr. Ashlie Hills HEMOGRAM AND PLATELon 2021 Hematocrit (Bld) [Volume fraction] 56.3 % Critically high 36.0-48.0 [facility] Comment on above: Performed By: #### C VDAGS #### [facility] [address] [address] [address] Ashlie Hills Hemoglobin (Bld) [Mass/Vol] 18.0 g/dL Critically high 12.0-16.0 [facility] Comment on above: Performed By: #### C VDAGS #### [facility] [address] [place] [address] Dr. Ashlie Hills MCH (RBC) [Entitic mass] 29.5 pg Normal 26.7-34.0 [facility] Comment on above: Performed By: #### C VDAGS #### [facility] [address] [address] [address] Ashlie Hills MCHC (RBC) [Mass/Vol] 32.0 g/dL Normal 29.9-35.2 [facility] Comment on above: Performed By: #### C VDAGS #### [facility] [address] [place] [address] Dr. Ashlie Hills MCV (RBC) [Entitic vol] 92.1 fL Normal 81.0-99.0 [facility] Comment on above: Performed By: #### C VDAGS #### [facility] [address] [place] [address] Dr. Ashlie Hills PLT 123 103/ul Critically low 150-450 [facility] Comment on above: Performed By: #### C VDAGS #### [facility] [address] [address] [address] Ashlie Hills RBC 6.11 106/ul Critically high 4.20-5.40 [facility] Comment on above: Performed By: #### C VDAGS #### [facility] [address] [place] [address] Dr. Ashlie Hills WBC 16.4 103/ul Critically high 4.0-11.0 [facility] Comment on above: Performed By: #### C VDAGS #### [facility] [address] [place] [address] Dr. Ashlie Hills LIPID PROFILEon 03-03-2022 CHOL-HDL RATIO NORM SEE BELOW Normal [facility] Comment on above: Result Comment: 3.3 - 4.4 LOW RISK 4.4 - 7.1 AVERAGE RISK 7.1 - 11.0 MODERATE RISK >11.0 HIGH RISK Performed By: #### C VDAGS #### [facility] [address] [place] [address] Dr. Ashlie Hills Cholesterol [Mass/Vol] 159 mg/dL Normal <=200 [facility] Comment on above: Performed By: #### C VDAGS #### [facility] [address] [place] [address] Dr. Ashlie Hills Cholesterol in HDL [Mass/Vol] 40 mg/dL Normal 40-60 [facility] Comment on above: Performed By: #### C VDAGS #### [facility] [address] [place] [address] Dr. Ashlie Hills Cholesterol in LDL [Mass/Vol] 81.8 mg/dL Normal [facility] Comment on above: Performed By: #### C VDAGS #### [facility] [address] [address] [address] Ashlie Hills Cholesterol.total/Chol esterol in HDL [Mass ratio] 4.0 {ratio} Normal [facility] Comment on above: Performed By: #### C VDAGS #### [facility] [address] [address] [address] Ashlie Hills HDL NORMAL > or = 60 mg/dl - LOW CARDIOVASCULAR RISK <40 mg/dl - HIGH CARDIOVASCULAR RISK Normal [facility] Comment on above: Performed By: #### C VDAGS #### [facility] [address] [address] [address] Ashlie Hills LDL CALC NORMAL SEE BELOW Normal [facility] Comment on above: Result Comment: <100 mg/dl OPTIMAL 100 - 129 mg/dl NEAR OR ABOVE OPTIMAL 130 - 159 mg/dl BORDERLINE HIGH 160 - 189 mg/dl HIGH >190 mg/dl VERY HIGH Performed By: #### C VDAGS #### [facility] [address] [address] [address] Ashlie Hills Triglyceride [Mass/Vol] 186 mg/dL Critically high <=150 [facility] Comment on above: Performed By: #### C VDAGS #### [facility] [address] [address] [address] Ashlie Hills VLDL CALC 37.2 mg/dL Normal [facility] Comment on above: Performed By: #### C VDAGS #### [facility] [address] [address] [address] Ashlie Hills RENAL FUNCTION PANELon 03-03 Albumin [Mass/Vol] 3.1 g/dL Critically low 3.4-5.0 [facility] Comment on above: Performed By: #### C BC #### [facility] [address] [address] [address] Ashlie Hills Calcium [Mass/Vol] 9.2 mg/dL Normal 8.5-10.1 [facility] Comment on above: Performed By: #### C BC #### [facility] [address] [address] [address] Ashlie Hills Chloride [Moles/Vol] 102 mmol/L Normal 98-107 [facility] Comment on above: Performed By: #### C BC #### [facility] [address] [place] [address] Dr. Ashlie Hills CO2 [Moles/Vol] 31.9 mmol/L Normal 21.0-32.0 [facility] Comment on above: Performed By: #### C BC #### [facility] [address] [place] [address] Dr. Ashlie Hills Creatinine [Mass/Vol] 0.68 mg/dL Normal 0.55-1.02 [facility] Comment on above: Performed By: #### C BC #### [facility] [address] [place] [address] Dr. Ashlie Hills EGFR-AF VENEZUELAN >60 Normal >=60 [facility] Comment on above: Performed By: #### C BC #### [facility] [address] [place] [address] Dr. Ashlie Hills EGFR-NON AF VENEZUELAN >60 Normal >=60 [facility] Comment on above: Performed By: #### C BC #### [facility] [address] [address] [address] Ashlie Hills Glucose [Mass/Vol] 131 mg/dL Critically high 74-106 [facility] Comment on above: Performed By: #### C BC #### [facility] [address] [place] [address] Dr. Ashlie Hills Phosphate [Mass/Vol] 4.0 mg/dL Normal 2.6-4.7 [facility] Comment on above: Performed By: #### C BC #### [facility] [address] [place] [address] Dr. Ashlie Hills Potassium [Moles/Vol] 4.0 mmol/L Normal 3.5-5.1 [facility] Comment on above: Performed By: #### C BC #### [facility] [address] [address] [address] Ashlie Hills Sodium [Moles/Vol] 141 mmol/L Normal 136-145 [facility] Comment on above: Performed By: #### C BC #### [facility] [address] [place] [address] Dr. Ashlie Hills Urea nitrogen [Mass/Vol] 17.0 mg/dL Normal 7.0-18.0 [facility] Comment on above: Performed By: #### C BC #### [facility] [address] [place] [address] Dr. Ashlie Hills UA RANDOM W/MICROSCOPICon BACTERIA NONE SEEN Normal NONE SEEN [facility] Comment on above: Performed By: #### I NFLUAB #### [facility] [address] [place] [address] Dr. Ashlie Hills Bilirubin Ql (U) Negative Normal NEGATIVE The [facility] Comment on above: Performed By: #### I NFLUAB #### [facility] [address] [place] [address] Dr. Ashlie Hills CAST NONE SEEN Normal NONE SEEN [facility] Comment on above: Performed By: #### I NFLUAB #### [facility] [address] [place] [address] Dr. Ashlie Hills Clarity (U) CLEAR Normal CLEAR [facility] Comment on above: Performed By: #### I NFLUAB #### [facility] [address] [place] [address] Dr. Ashlie Hills Color (U) YELLOW Normal YELLOW [facility] Comment on above: Performed By: #### I NFLUAB #### [facility] [address] [place] [address] Dr. Ashlie Hills Crystals LM Nom (Urine sed) NONE SEEN Normal NONE SEEN [facility] Comment on above: Performed By: #### I NFLUAB #### [facility] [address] [place] [address] Dr. Ashlie Hills Epithelial cells LM Ql (Urine sed) FEW Abnormal NONE SEEN /RARE [facility] Comment on above: Performed By: #### I NFLUAB #### [facility] [address] [place] [address] Dr. Ashlie Hills Glucose Ql (U) Negative Normal NEGATIVE [facility] Comment on above: Performed By: #### I NFLUAB #### [facility] [address] [address] [address] Ashlie Hills Hemoglobin Ql (U) Negative Normal NEGATIVE [facility] Comment on above: Performed By: #### I NFLUAB #### [facility] [address] [address] [address] Ashlie Hills Ketones Ql (U) Negative Normal NEGATIVE [facility] Comment on above: Performed By: #### I NFLUAB #### [facility] [address] [place] [address] Dr. Ashlie Hills LEUKOCYTES Negative Normal NEGATIVE [facility] Comment on above: Performed By: #### I NFLUAB #### [facility] [address] [place] [address] Dr. Ashlie Hills MUCOUS NONE SEEN Normal NONE SEEN [facility] Comment on above: Performed By: #### I NFLUAB #### [facility] [address] [place] [address] Dr. Ashlie Hills Nitrite Ql (U) Negative Normal NEGATIVE [facility] Comment on above: Performed By: #### I NFLUAB #### [facility] [address] [place] [address] Dr. Ashlie Hills pH (U) 5.5 [pH] Normal 5-9 [facility] Comment on above: Performed By: #### I NFLUAB #### [facility] [address] [place] [address] Dr. Ashlie Hills RBC 0-2 Normal 0-2 [facility] Comment on above: Performed By: #### I NFLUAB #### [facility] [address] [place] [address] Dr. Ashlie Hills SPEC GRAVITY >=1.030 Abnormal 1.005-<=1.025 [facility] Comment on above: Performed By: #### I NFLUAB #### [facility] [address] [place] [address] Dr. Ashlie Hills UA PROTEIN 100 mg/dl Abnormal NEGATIVE/ TRACE [facility] Comment on above: Performed By: #### I NFLUAB #### [facility] [address] [place] [address] Dr. Ashlie Hills Urobilinogen Qn (U) 0.2 {Little'U}/dL Normal 0.2 - 1. 0 [facility] Comment on above: Performed By: #### I NFLUAB #### [facility] [address] [place] [address] Dr. Ashlie Hills WBC NONE SEEN Normal NONE SEEN [facility] Comment on above: Performed By: #### I NFLUAB #### [facility] [address] [place] [address] Dr. Ashlie Hills URIC ACID SERUMon 03-03-2022 Urate [Mass/Vol] 5.0 mg/dL Normal 2.6-6.0 [facility] Comment on above: Performed By: #### I NFLUAB #### [facility] [address] [place] [address] Dr. Ashlie Hills URINE T PROTEIN CREAT RATIOo n 03-03-2022 Protein (U) [Mass/Vol] 77.9 mg/dL Critically high <=12.0 [facility] Comment on above: Performed By: #### C VDAGS #### [facility] [address] [place] [address] Dr. Ashlie Hills UR PROT CREAT RAT 0.44 Normal [facility] Comment on above: Performed By: #### C VDAGS #### [facility] [address] [place] [address] Dr. Ashlie Hills URINE CREAT 175.15 mg/dL Normal 20.00-300.00 [facility] Comment on above: Performed By: #### C VDAGS #### [facility] [address] [place] [address] Dr. Ashlie Hills CULTURE URINEon 12-25-2021 CULTURE URINE Culture Observations: GREATER THAN TWO ORGANISMS PRESENT, HEAVILY MIXED. PLEASE RESUBMIT CLEAN CATCH MID-STREAM URINE IF CLINICALLY INDICATED. Normal [facility] Comment on above: Performed By: #### I NFLUAB #### [facility] [address] [place] [address] Dr. Ashlie Hills CBC AUTO DIFFon 12-24-2021 BASO # 0.1 103/ul Normal 0.0-0.1 [facility] Comment on above: Performed By: #### C BC #### [facility] [address] [address] [address] Ashlie Hills Basophils/100 WBC (Bld) 0.5 % Normal 0.2-2.0 [facility] Comment on above: Performed By: #### C BC #### [facility] [address] [address] [address] Ashlie Hills EO # 0.4 103/ul Normal 0.0-0.7 [facility] Comment on above: Performed By: #### C BC #### [facility] [address] [address] [address] Ashlie Hills Eosinophils/100 WBC (Bld) 2.4 % Normal 0.9-7.0 [facility] Comment on above: Performed By: #### C BC #### [facility] [address] [address] [address] Ashlie Hills Erythrocyte distribution width (RBC) [Ratio] 14.1 % Normal 11.0-15.0 [facility] Comment on above: Performed By: #### C BC #### [facility] [address] [address] [address] Ashlie Hills Hematocrit (Bld) [Volume fraction] 55.9 % Critically high 36.0-48.0 [facility] Comment on above: Performed By: #### C BC #### [facility] [address] [address] [address] Ashlie Hills Hemoglobin (Bld) [Mass/Vol] 17.9 g/dL Critically high 12.0-16.0 [facility] Comment on above: Performed By: #### C BC #### [facility] [address] [address] [address] Ashlie Hills IG # 0.06 10e3/ul Critically high 0.00-0.03 [facility] Comment on above: Performed By: #### C BC #### [facility] [address] [place] [address] Dr. Ashlie Hills IG % 0.4 % Normal 0.0-0.5 [facility] Comment on above: Performed By: #### C BC #### [facility] [address] [place] [address] Dr. Ashlie Hills LYMPH # 5.8 103/ul Critically high 1.2-3.8 [facility] Comment on above: Performed By: #### C BC #### [facility] [address] [place] [address] Dr. Ashlie Hills Lymphocytes/100 WBC (Bld) 35.4 % Normal 20.5-60.0 [facility] Comment on above: Performed By: #### C BC #### [facility] [address] [place] [address] Dr. Ashlie Hills MANUAL DIFF REQ NO Normal [facility] Comment on above: Performed By: #### C BC #### [facility] [address] [place] [address] Dr. Ashlie Hills MCH (RBC) [Entitic mass] 29.4 pg Normal 26.7-34.0 [facility] Comment on above: Performed By: #### C BC #### [facility] [address] [place] [address] Dr. Ashlie Hills MCHC (RBC) [Mass/Vol] 32.0 g/dL Normal 29.9-35.2 [facility] Comment on above: Performed By: #### C BC #### [facility] [address] [place] [address] Dr. Ashlie Hills MCV (RBC) [Entitic vol] 91.8 fL Normal 81.0-99.0 [facility] Comment on above: Performed By: #### C BC #### [facility] [address] [place] [address] Dr. Ashlie Hills MONO # 0.8 103/ul Normal 0.3-0.8 [facility] Comment on above: Performed By: #### C BC #### [facility] [address] [place] [address] Dr. Ashlie Hills Monocytes/100 WBC (Bld) 4.8 % Normal 1.7-12.0 [facility] Comment on above: Performed By: #### C BC #### [facility] [address] [address] [address] Ashlie Hills NEUT # 9.3 103/ul Critically high 1.4-6.5 [facility] Comment on above: Performed By: #### C BC #### [facility] [address] [place] [address] Dr. Ashlie Hills Neutrophils/100 WBC (Bld) 56.5 % Normal 43.0-75.0 [facility] Comment on above: Performed By: #### C BC #### [facility] [address] [place] [address] Dr. Ashlie Hills Platelet mean volume (Bld) [Entitic vol] 12.9 fL Normal 9.5-13.5 [facility] Comment on above: Performed By: #### C BC #### [facility] [address] [place] [address] Dr. Ashlie Hills PLT 127 103/ul Critically low 150-450 [facility] Comment on above: Performed By: #### C BC #### [facility] [address] [place] [address] Dr. Ashlie Hills RBC 6.09 106/ul Critically high 4.20-5.40 The [facility] Comment on above: Performed By: #### C BC #### [facility] [address] [place] [address] Dr. Ashlie Hills WBC 16.4 103/ul Critically high 4.0-11.0 The [facility] Comment on above: Performed By: #### C BC #### [facility] [address] [place] [address] ABD/PELVIS WO CONon [...] hip degenerative change. Normal [facility] URINE PROFILEon 2 Bilirubin Ql (U) Negative Normal NEGATIVE The [facility] Comment on above: Performed By: #### MADELINE DIAZRO #### [facility] [address] [place] [address] Dr. Ashlie Hills Clarity (U) CLEAR Normal CLEAR [facility] Comment on above: Performed By: #### Tracey LYMAN UMICRO #### [facility] [address] [place] [address] Dr. Ashlie Hills Color (U) DK. ORANGE Abnormal YELLOW [facility] Comment on above: Performed By: #### MADELINE DIAZRO #### [facility] [address] [place] [address] Dr. Ashlie HOBBS A micrscopic examination will be performed if indicated. Normal [facility] Comment on above: Performed By: #### PEREZ DIAZICRO #### [facility] [address] [place] [address] Dr. Ashlie Hills Glucose Ql (U) 250 mg/dl Abnormal NEGATIVE [facility] Comment on above: Performed By: #### PEREZ DIAZICRO #### [facility] [address] [place] [address] Dr. Ashlie Hills Hemoglobin Ql (U) Negative Normal NEGATIVE [facility] Comment on above: Performed By: #### Tracey LYMAN UMICRO #### [facility] [address] [address] [address] Ashlie Hills Ketones Ql (U) Negative Normal NEGATIVE [facility] Comment on above: Performed By: #### PEREZ DIAZICRO #### [facility] [address] [place] [address] Dr. Ashlie Hills LEUKOCYTES Negative Normal NEGATIVE [facility] Comment on above: Performed By: #### Tracey LYMAN UMICRO #### [facility] [address] [place] [address] Dr. Ashlie Hills Nitrite Ql (U) Negative Normal NEGATIVE [facility] Comment on above: Performed By: #### MADELINE DIAZRO #### [facility] [address] [place] [address] Dr. Ashlie Hills pH (U) 5.0 [pH] Normal 5-9 [facility] Comment on above: Performed By: #### MADELINE DIAZRO #### [facility] [address] [place] [address] Dr. Ashlie Hills Protein (U) [Mass/Vol] 100 mg/dL Abnormal NEGAT YURY/ TRACE [facility] Comment on above: Performed By: #### MADELINE DIAZRO #### [facility] [address] [place] [address] Dr. Ashlie Hills SPEC GRAVITY >=1.030 Abnormal 1.005-<=1.025 [facility] Comment on above: Performed By: #### MADELINE DIAZRO #### [facility] [address] [place] [address] Dr. Ashlie Hills UR MICRO IND INDICATED Normal [facility] Comment on above: Performed By: #### MADELINE DIAZRO #### [facility] [address] [place] [address] Dr. Ashlie Hills Urobilinogen Qn (U) 1.0 {Little'U}/dL Normal 0.2 - 1. 0 [facility] Comment on above: Performed By: #### MADELINE DIAZRO #### [facility] [address] [place] [address] Dr. Ashlie Hills PROF CHEM 8 (BAS METB)on Anion gap [Moles/Vol] 12.1 mmol/L Normal [facility] Comment on above: Performed By: #### I NFLUAB #### [facility] [address] [place] [address] Dr. Ashlie Hlils Calcium [Mass/Vol] 9.0 mg/dL Normal 8.5-10.1 [facility] Comment on above: Performed By: #### I NFLUAB #### [facility] [address] [place] [address] Dr. Ashlie Hills Chloride [Moles/Vol] 101 mmol/L Normal 98-107 [facility] Comment on above: Performed By: #### I NFLUAB #### [facility] [address] [place] [address] Dr. Ashlie Hills CO2 [Moles/Vol] 29.1 mmol/L Normal 21.0-32.0 [facility] Comment on above: Performed By: #### I NFLUAB #### [facility] [address] [place] [address] Dr. Ashlie Hills Creatinine [Mass/Vol] 0.86 mg/dL Normal 0.55-1.02 [facility] Comment on above: Performed By: #### I NFLUAB #### [facility] [address] [place] [address] Dr. Ashlie Hills EGFR-AF VENEZUELAN >60 Normal >=60 The [facility] Comment on above: Performed By: #### I NFLUAB #### [facility] [address] [place] [address] Dr. Ashlie Hills EGFR-NON AF VENEZUELAN >60 Normal >=60 [facility] Comment on above: Performed By: #### I NFLUAB #### [facility] [address] [place] [address] Dr. Ashlie Hills Glucose [Mass/Vol] 236 mg/dL Critically high 74-106 [facility] Comment on above: Performed By: #### I NFLUAB #### [facility] [address] [place] [address] Dr. Ashlie Hills Potassium [Moles/Vol] 4.2 mmol/L Normal 3.5-5.1 [facility] Comment on above: Performed By: #### I NFLUAB #### [facility] [address] [place] [address] Dr. Ashlie Hills Sodium [Moles/Vol] 138 mmol/L Normal 136-145 [facility] Comment on above: Performed By: #### I NFLUAB #### [facility] [address] [place] [address] Dr. Ashlie Hills Urea nitrogen [Mass/Vol] 11.0 mg/dL Normal 7.0-18.0 [facility] Comment on above: Performed By: #### I NFLUAB #### [facility] [address] [place] [address] Dr. Ashlie Hills Urea nitrogen/Creatinine [Mass ratio] 12.8 mg/mg Normal [facility] Comment on above: Performed By: #### I NFLUAB #### [facility] [address] [place] [address] Dr. Ashlie Hills URINE MICROSCOPIC ONLYon BACTERIA SMALL Abnormal NONE SEEN [facility] [facility] Comment on above: Performed By: #### E NURA UMICRO #### [facility] [address] [place] [address] Dr. Ashlie Hills Bacteria identified Cx Nom (U) INDICATED Normal [facility] Comment on above: Performed By: #### E NURA UMICRO #### [facility] [address] [place] [address] Dr. Ashlie Hills CAST NONE SEEN Normal NONE SEEN [facility] Comment on above: Performed By: #### Tracey LYMAN UMICRO #### [facility] [address] [place] [address] Dr. Ashlie Hills Crystals LM Nom (Urine sed) NONE SEEN Normal NONE SEEN [facility] Comment on above: Performed By: #### Tracey LYMAN UMICRO #### [facility] [address] [place] [address] Dr. Ashlei Hills Epithelial cells LM Ql (Urine sed) MODERATE Abnormal NONE SEEN /RARE [facility] Comment on above: Performed By: #### E RUR UMICRO #### [facility] [address] [place] [address] Dr. Ashlie Hills MUCOUS NONE SEEN Normal NONE SEEN [facility] Comment on above: Performed By: #### E RUR UMICRO #### [facility] [address] [place] [address] Dr. Ashlie Hills RBC 0-2 Normal 0-2 [facility] Comment on above: Performed By: #### E NURA UMICRO #### [facility] [address] [address] [address] Ashlie Hills WBC 0-2 Abnormal NONE SEEN [facility] Comment on above: Performed By: #### E NURA UMICRO #### [facility] [address] [address] [address] Ashlie Hills YEAST PRESENT Abnormal NONE SEEN [facility] Comment on above: Performed By: #### E NURA UMICRO #### [facility] [address] [address] [address] Ashlie Hills HIP RIGHT 1 OR 2 VWS WITH PE LVISon 07-20-2020 HIP RIGHT 1 OR 2 VWS WITH PELVIS [facility] Department of Radiology [address] [place] [id number] Patient Name: MITZI MACIAS : 1970 Sex: F Age: Race: White Pt. Location: Patient Status: O Ordered Date: 07/20/2020 1:45:00 PM Completed Date: 07/20/2020 01:57 PM Requesting Provider: LIZ EISENBERG Attending Provider: LIZ EISENBERG Report Copy To: MCKAYLA BLAS Signs & Symptoms: M25.551 Pain in right hip I10 History: [place] Comments: evaluate Exam: HIP RIGHT 1 OR [...] MRI. Electronically signed: Pipo Acevedo. Transcribed by: [email or web address], User Resident: Electronically Signed by: PIPO ACEVEDO @ 07/20/2020 03:45 PM Normal [facility] Comment on above: Order Comment: evalu ate Vital Signs Date Time Vital Sign Value Performing Clinician Facility 01-29-2025 09:48-0400 Body height 170.2 cm Rain Souza MD Work Phone: [facility] 01-29-2025 09:48-0400 Body mass index (BMI) [Ratio] 56.38 kg/m2 Rian Souza MD Work Phone: [facility] 01-29-2025 09:48-0400 Body weight 163.29 kg Rain Souza MD Work Phone: [facility] 01-29-2025 09:48-0400 Diastolic blood pressure 70 mm[Hg] Rain Souza MD Work Phone: [facility] 01-29-2025 09:48-0400 Heart rate 72 /min Rain Souza MD Work Phone: [facility] 01-29-2025 09:48-0400 Respiratory rate 16 /min Rain Souza MD Work Phone: [facility] 01-29-2025 09:48-0400 SaO2% (BldA) [Mass fraction] 84 % Rain Souza MD Work Phone: [facility] 01-29-2025 09:48-0400 Systolic blood pressure 130 mm[Hg] Rain Souza MD Work Phone: [facility] 01-26-2025 18:11-0400 Body mass index (BMI) [Ratio] 58.64 kg/m2 Mckayla Blas NP Work Phone: [facility] 01-26-2025 18:11-0400 Body temperature 98.49 [degF] Mckayla Aichholz [employer] Work Phone: [facility] 01-26-2025 18:11-0400 Body weight 169.83 kg Mckayla Aichholz [employer] Work Phone: [facility] 01-26-2025 18:11-0400 Diastolic blood pressure 82 mm[Hg] Mckayla Aichholz [employer] Work Phone: [facility] 01-26-2025 18:11-0400 Heart rate 81 /min Mckayla Aichholz [employer] Work Phone: [facility] 01-26-2025 18:11-0400 Respiratory rate 20 /min Mckayla Aichholz [employer] Work Phone: [facility] 01-26-2025 18:11-0400 SaO2% (BldA) [Mass fraction] 90 % Mckayla Aichholz [employer] Work Phone: [facility] 01-26-2025 18:11-0400 Systolic blood pressure 126 mm[Hg] Mckayla Aichholz [employer] Work Phone: [facility] 12-09-2024 10:19-0400 Body temperature 98.01 [degF] Mckayla Aichholz [employer] Work Phone: [facility] 12-09-2024 10:19-0400 Diastolic blood pressure 76 mm[Hg] Mckayla Aichholz [employer] Work Phone: [facility] 12-09-2024 10:19-0400 Heart rate 71 /min Mckayla Aichholz [employer] Work Phone: [facility] 12-09-2024 10:19-0400 Respiratory rate 20 /min Mckayla Aichholz [employer] Work Phone: [facility] 12-09-2024 10:19-0400 SaO2% (BldA) [Mass fraction] 88 % Mckayla Aichholz [employer] Work Phone: [facility] 12-09-2024 10:19-0400 Systolic blood pressure 150 mm[Hg] Mckaylajuvenal Rosenbergz [employer] Work Phone: [facility] 10-27-2024 14:11-0400 Body height 170.2 cm Mckaylajuvenal Patriciaholz [employer] Work Phone: [facility] 10-27-2024 14:11-0400 Body mass index (BMI) [Ratio] 56.51 kg/m2 Mckaylajuvenal Patriciaholz [employer] Work Phone: [facility] 10-27-2024 14:11-0400 Body temperature 98.71 [degF] Mckaylajuvenal Rosenbergz [employer] Work Phone: [facility] 10-27-2024 14:11-0400 Body weight 163.66 kg Mckaylajuvenal Rosenbergz [employer] Work Phone: [facility] 10-27-2024 14:11-0400 Diastolic blood pressure 74 mm[Hg] Mckayla Chetz [employer] Work Phone: [facility] 10-27-2024 14:11-0400 Heart rate 75 /min Mckayla Harshadholz [employer] Work Phone: [facility] 10-27-2024 14:11-0400 Respiratory rate 18 /min Mckaylajuvenal Patriciaholz [employer] Work Phone: [facility] 10-27-2024 14:11-0400 SaO2% (BldA) [Mass fraction] 90 % Mckaylajuvenal Patriciamariyaz [employer] Work Phone: [facility] 10-27-2024 14:11-0400 Systolic blood pressure 132 mm[Hg] Mckayla Harshadholz [employer] Work Phone: [facility] 10-08-2024 11:21-0400 Body height 170.2 cm Rain Souza MD Work Phone: [facility] 10-08-2024 11:21-0400 Body mass index (BMI) [Ratio] 55.91 kg/m2 Rain Souza MD Work Phone: [facility] 10-08-2024 11:21-0400 Body weight 161.93 kg Rain Souza MD Work Phone: [facility] 10-08-2024 11:21-0400 Diastolic blood pressure 70 mm[Hg] Rain Souza MD Work Phone: [facility] 10-08-2024 11:21-0400 Heart rate 70 /min Rain Souza MD Work Phone: [facility] 10-08-2024 11:21-0400 Respiratory rate 16 /min Rain Souza MD Work Phone: [facility] 10-08-2024 11:21-0400 SaO2% (BldA) [Mass fraction] 91 % Rain Souza MD Work Phone: [facility] 10-08-2024 11:21-0400 Systolic blood pressure 130 mm[Hg] Rain Souza MD Work Phone: [facility] 08-27-2024 17:44-0500 Body mass index (BMI) [Ratio] 57.31 kg/m2 Mckayla Blas [employer] Work Phone: [facility] 08-27-2024 17:44-0500 Body temperature 98.01 [degF] Mckayla Blas [employer] Work Phone: [facility] 08-27-2024 17:44-0500 Body weight 165.97 kg Mckayla Wan [employer] Work Phone: [facility] 08-27-2024 17:44-0500 Diastolic blood pressure 76 mm[Hg] Mckayla Wan [employer] Work Phone: [facility] 08-27-2024 17:44-0500 Heart rate 83 /min Mckayla Wan [employer] Work Phone: [facility] 08-27-2024 17:44-0500 Respiratory rate 18 /min Mckayla Wan [employer] Work Phone: [facility] 08-27-2024 17:44-0500 SaO2% (BldA) [Mass fraction] 91 % Mckayla Wan [employer] Work Phone: [facility] 08-27-2024 17:44-0500 Systolic blood pressure 134 mm[Hg] Mckayla Patriciajodie [employer] Work Phone: [facility] 06-11-2024 10:00-0500 Blood Pressure Location Elbert ARAUZ [facility] 06-11-2024 10:00-0500 Diastolic blood pressure 68 mm[Hg] Elbert ARAUZ [facility] 06-11-2024 10:00-0500 Heart rate 76 /min Elbert ARAUZ [facility] 06-11-2024 10:00-0500 Systolic blood pressure 132 mm[Hg] Elbert ARAUZ [facility] 05-27-2024 10:20-0500 Body height 170.2 cm Rain Souza MD Work Phone: [facility] 05-27-2024 10:20-0500 Body mass index (BMI) [Ratio] 56.7 kg/m2 Rain Souza MD Work Phone: [facility] 05-27-2024 10:20-0500 Body weight 164.2 kg Rain Souza MD Work Phone: [facility] 05-27-2024 10:20-0500 Diastolic blood pressure 66 mm[Hg] Rain Souza MD Work Phone: [facility] 05-27-2024 10:20-0500 Heart rate 72 /min Rain Souza MD Work Phone: [facility] 05-27-2024 10:20-0500 Respiratory rate 16 /min Rain Souza MD Work Phone: [facility] 05-27-2024 10:20-0500 Systolic blood pressure 128 mm[Hg] Rani Souza MD Work Phone: [facility] 04-14-2024 10:27-0400 Body height 165.1 cm Mckayla Aichholz [employer] Work Phone: [facility] 04-14-2024 10:27-0400 Body mass index (BMI) [Ratio] 61.01 kg/m2 Mckayla Aichholz [employer] Work Phone: [facility] 04-14-2024 10:27-0400 Body temperature 98.49 [degF] Mckayla Aichholz [employer] Work Phone: [facility] 04-14-2024 10:27-0400 Body weight 166.29 kg Mckayla Aichholz [employer] Work Phone: [facility] 04-14-2024 10:27-0400 Diastolic blood pressure 80 mm[Hg] Mckayla Aichholz [employer] Work Phone: [facility] 04-14-2024 10:27-0400 Heart rate 77 /min Mckayla Aichholz [employer] Work Phone: [facility] 04-14-2024 10:27-0400 Respiratory rate 19 /min Mckayla Aichholz [employer] Work Phone: [facility] 04-14-2024 10:27-0400 SaO2% (BldA) [Mass fraction] 92 % Mckayla Aichholz [employer] Work Phone: [facility] 04-14-2024 10:27-0400 Systolic blood pressure 116 mm[Hg] Mckayla Aichholz [employer] Work Phone: [facility] 03-08-2022 15:00-0400 Body height 170.18 cm Stephanie Cortés Other [employer] Other 03-08-2022 15:00-0400 Body temperature 97.6 [degF] Stephanie Tico Other [employer] Other 03-08-2022 15:00-0400 Diastolic blood pressure 72 mm[Hg] Stephanie Tico Other [employer] Other 03-08-2022 15:00-0400 Respiratory rate 20 /min Stephanie Tico Other [employer] Other 03-08-2022 15:00-0400 SaO2% (BldA) [Mass fraction] 91 % Stephanie Tico Other [employer] Other 03-08-2022 15:00-0400 Systolic blood pressure 131 mm[Hg] Stephanie Tico Other [employer] Other 02-20-2022 09:20-0400 Body height 170.18 cm Stephanie Tico Other [employer] Other 02-20-2022 09:20-0400 Body temperature 96.5 [degF] Stephanie Tico Other [employer] Other 02-20-2022 09:20-0400 Diastolic blood pressure 69 mm[Hg] Stephanie Tico Other [employer] Other 02-20-2022 09:20-0400 Respiratory rate 20 /min Stephanie Tico Other [employer] Other 02-20-2022 09:20-0400 SaO2% (BldA) [Mass fraction] 91 % Stephanie Tico Other [employer] Other 02-20-2022 09:20-0400 Systolic blood pressure 129 mm[Hg] Stephanie Cortés Other [employer] Other 02-06-2022 10:24-0400 Blood Pressure Location Elbert ARAUZ [facility] 02-06-2022 10:24-0400 Diastolic blood pressure 76 mm[Hg] Elbert ARAUZ [facility] 02-06-2022 10:24-0400 Heart rate 70 /min Elbert ARAUZ [facility] 02-06-2022 10:24-0400 Respiratory rate 16 /min Elbert ARAUZ [facility] 02-06-2022 10:24-0400 Systolic blood pressure 134 mm[Hg] Elbert ARAUZ [facility] Encounters Encounter Date Encounter Type Care Provider Facility Start: 02-26-2025 ambulatory Flynn Urias DPM F acility:Ortho/[facility] Start: 01-29-2025 End: 01-29-2025 Diana flowsheet Rain Souza MD Work Phone: [facility] Start: 01-29-2025 End: 01-29-2025 Diana flowsneal Souza MD [facility] Start: 01-29-2025 End: 01-29-2025 Clinisync Result Encounter Generic External Data Provider [facility] External Department Unsolicited Start: 01-29-2025 End: 01-29-2025 ambulatory RAIN SOUZA Not Available Start: 01-29-2025 End: 01-29-2025 Office outpatient visit 25 minutes Rain Souza MD Work Phone: [facility] Comment on above: Encounter for dietar y consultation (Primary Dx); Type 2 diabetes mellitus with hyperglycemia, with long-term current use of insulin (HCC); Vitamin D deficiency; Primary hypertension ; Insulin long-term use (HCC); Hyperlipemia, mixed ; Microalbuminuria; Class 3 severe obesity due to excess calories with serious comorbidity and body mass index (BMI) of 50.0 to 59.9 in adult ([facility]) Start: 01-26-2025 End: 01-26-2025 ambulatory MCKAYLA BLAS Not Available Start: 01-26-2025 End: 01-26-2025 Patient encounter procedure Mckayla Blas [employer] Work Phone: [facility] Comment on above: Encounter for subseq [...] Morbid (severe) obesity due to excess calories ([facility]) Start: 01-06-2025 End: 01-06-2025 ambulatory [facility] Start: 12-18-2024 End: 12-19-2024 Refill Mckayla Blas [employer] Work Phone: [facility] Comment on above: Hyperlipidemia, unsp ecified ; Tobacco user; Encounter for smoking cessation counseling Start: 12-09-2024 End: 12-09-2024 Bamboo flowsheet Mckayla Wan [employer] Work Phone: [facility] Start: 12-09-2024 End: 12-09-2024 Bamboo flowsheet Mckayla Wan [employer] Work Phone: [facility] Start: 12-09-2024 End: 12-09-2024 ambulatory MCKAYLA HARSHADHOLZ Not Available Start: 12-09-2024 End: 12-09-2024 Office outpatient visit 25 minutes Mckayla Blas [employer] Work Phone: [facility] Comment on above: Cellulitis of [...] Office outpatient visit 25 minutes Mckayla Blas [employer] Work Phone: [facility] Comment on above: Primary hypertension [...] Refill Mckayla Blas NP Work Phone: [facility] Comment on above: Chronic obstructive pulmonary disease, unspecified Start: 10-08-2024 End: 10-08-2024 Clinisync Result Encounter Mckayla Blas NP Work Phone: [facility] External Department Unsolicited Start: 10-08-2024 End: 10-08-2024 Clinisync Result Encounter Mckayla Blas NP Work Phone: [facility] External Department Unsolicited Start: 10-08-2024 End: 10-08-2024 Office outpatient visit 25 minutes Rain Souza MD Work Phone: [facility] Comment on above: Type 2 [...] minutes Mckayla Blas NP Work Phone: [facility] Comment on above: Anxiety and depressi on (CMS/HCC) (Primary Dx); Morbid (severe) obesity due to excess calories (CMS/HCC); Body mass index (BMI) 50.0-59.9, adult (CMS/HCC); Malignant neoplasm of cervix uteri, unspecified (CMS/HCC); Diabetic polyneuropathy associated with type 2 diabetes mellitus (CMS/HCC); Chronic diastolic heart failure ([facility]); Primary hypertension ([facility]); 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 ([facility]); Gastroesophageal reflux disease, unspecified whether esophagitis present; Bilateral lower extremity edema; Type 2 diabetes mellitus with complication, with long-term current use of insulin ([facility]); Tobacco user; Mixed hyperlipidemia ([facility]); Gout, unspecified cause, unspecified chronicity, unspecified site; Vitamin deficiency; Gastro-esophageal reflux disease without esophagitis; Edema, unspecified; Edema; Hyperlipidemia, unspecified ([facility]); Encounter for smoking cessation counseling; Venous ulcer of right leg ([facility]); Antibiotic-induced yeast infection Start: 08-27-2024 End: 08-27-2024 ambulatory MCKAYLA BLAS Not Available Start: 08-27-2024 End: 08-27-2024 Clinisync Result Encounter Generic External Data Provider [facility] External Department Unsolicited Start: 08-27-2024 End: 08-27-2024 Clinisync Result Encounter Generic External Data Provider [facility] External Department Unsolicited Start: 08-08-2024 End: 08-08-2024 ambulatory [facility] Start: 07-17-2024 End: 07-17-2024 Refill Mckayla Blas NP Work Phone: [facility] Start: 07-14-2024 End: 07-14-2024 Office outpatient visit 25 minutes Mckayla Blas NP Work Phone: [facility] Comment on above: Primary hypertension ([facility]) (Primary Dx); Diabetic polyneuropathy associated with type 2 diabetes mellitus ([facility]); Pulmonary emphysema, unspecified emphysema type ([facility] Critical limb ischemia of right lower extremity ([facility]); PAD (peripheral artery disease) ([facility]); Gastroesophageal reflux disease, unspecified whether esophagitis present; Bilateral lower extremity edema; Venous ulcer of right leg ([facility]); Type 2 diabetes mellitus with complication, with long-term current use of insulin ([facility]); Tobacco user; Encounter for smoking cessation counseling; Kidney stone; Adrenal mass 1 cm to 4 cm in diameter ([facility]); Radiculopathy, lumbar region; Non-seasonal allergic rhinitis, unspecified trigger; Type 2 diabetes mellitus with unspecified complications ([facility]) Start: 07-14-2024 End: 07-14-2024 ambulatory MCKAYLA LARACayetanoJODIE Not Available Start: 07-05-2024 End: 07-07-2024 Refill Mckayla Wan [employer] Work Phone: [facility] Comment on above: Bilateral lower extr emity edema Start: 06-11-2024 ambulatory Elbert Mahnaz ARAUZ Facili ty:[facility] Start: 06-11-2024 End: 06-11-2024 Patient encounter procedure Elbert ARAUZ [facility] Start: 05-27-2024 End: 05-27-2024 Bamboo flowsheet Rain Souza MD Work Phone: [facility] Start: 05-27-2024 End: 05-27-2024 Bamboo flowsheet Rain Souza MD Work Phone: [facility] Start: 05-27-2024 End: 05-27-2024 ambulatory RAIN SOUZA Not Available Start: 05-27-2024 End: 05-27-2024 Office outpatient visit 25 minutes Rain Souza MD Work Phone: [facility] Comment on above: Type 2 diabetes asiya itus with hyperglycemia, with long-term current use of insulin ([facility]) (Primary Dx); Encounter for dietary consultation; Vitamin D deficiency; Primary hypertension ([facility]); Insulin long-term use ([facility]); Hyperlipemia, mixed ([facility]); Microalbuminuria; Class 3 severe obesity due to excess calories with serious comorbidity and body mass index (BMI) of 50.0 to 59.9 in adult ([facility]) Start: 05-12-2024 End: 05-12-2024 Clinisync Result Encounter Generic External Data Provider [facility] External Department Unsolicited Start: 05-12-2024 End: 05-12-2024 Clinisync Result Encounter Generic External Data Provider [facility] External Department Unsolicited Start: 05-08-2024 ambulatory SARAH Wilkerson ty:SHEA Villalobos Start: 04-14-2024 End: 04-14-2024 Bamboo flowsheet Mckayla Aichholz [employer] Work Phone: [facility] Start: 04-14-2024 End: 04-14-2024 Bamboo flowsheet Mckayla Aichholz [employer] Work Phone: [facility] Start: 04-14-2024 End: 04-14-2024 Office outpatient visit 25 minutes Mckayla Aichholz [employer] Work Phone: [facility] Comment on above: Primary hypertension (CMS/HCC) [...] Start: 04-05-2024 End: 04-06-2024 Refill Mckayla Aichholz [employer] Work Phone: [facility] Comment on above: Hyperlipidemia, unsp ecified (CMS/HCC); Bilateral lower extremity edema Vitamin D deficiency , unspecified Start: 01-17-2024 Patient encounter procedure Rain Souza MD Work Phone: [facility] Start: 08-17-2023 Refill Mckayla Aichholz [employer] Work Phone: [facility] Comment on above: Vaginal yeast infect ion (Primary Dx) Start: 08-14-2023 Refill Mckayla Aichholz [employer] Work Phone: [facility] Comment on above: Type 2 diabetes asiya itus with unspecified complications (CMS/[facility]); Edema, unspecified; Edema Start: 12-05-2022 ambulatory NARENDRANSHERITA LAKSHMIPATHY . Facility:[facility] Start: 12-05-2022 End: 12-06-2022 Evaluation and management of inpatient UMBERTO HEALYP . 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 Facility:[facility] Start: 12-24-2021 End: 12-24-2021 ambulatory OLE RAMIREZ Facility:[facility] Start: 08-26-2020 End: 09-10-2020 Patient encounter procedure MARY TAVERAS Facility:[facility] Start: 10-30-2019 End: 10-30-2019 Emergency department patient [facility] Start: 10-30-2019 End: 10-30-2019 Emergency department patient visit [facility] Emergency Department Start: 11-02-2016 Preoperative state Stephanie Tico Other [employer] Other Procedures Date Procedure Procedure Detail Performing [...] Rain Souza MD Work Phone: Start: 10-08-2024 [facility] UA (CLEAN/CATCH) MICROSCOPIC IF INDICATE Mckayla Blas NP Work Phone: Start: 08-27-2024 ALL CBC WITH AUTO DIFF Generic External Data Provider Start: 05-27-2024 Gluc bld gluc mntr d ev cleared fda spec home use Rain Souza MD Work Phone: Start: 05-12-2024 [facility] CREATININE Generic External Data Provider Start: 12-14-2023 Mammography Rain urena MD Work Phone: Start: 11-22-2022 Mammography Mckayla clifford [employer] Work Phone: Start: 10-08-2015 Microscopic observat ion [Identifier] in Cervix by Cyto stain Mckayla Blas NP Work Phone: H/O: hysterectomy Elbert TIKA LARA Laparoscopic cholecystectomy Elbert ARAUZ Operative procedure on foot Elbert ARAUZ Plan of Treatment Date Care Activity Detail Author Start: 02-01-2026 End: 02-01-2026 Patient encounter procedure 02/01/2026 6:00 PM EDT Office Visit [facility] [address] [place] [phone] Mckayla Blas NP [address] [place] [phone] [facility] Start: 01-26-2026 Medicare Annual Wellness (AWV) Medicare Annual Wellness (AWV) [facility] Healthcare Start: 10-08-2025 Urine screening for protein Diabetes: Urine Protein Screening [facility] Start: 08-03-2025 Screening for malignant neoplasm of colon [facility] Start: 07-14-2025 Glaucoma screening Diabetes: R etinopathy Screening [facility] Start: 05-28-2025 End: 05-28-2025 Patient encounter procedure 05/28/2025 10:30 AM EST Office Visit [facility] [address] [place] [address] Rain Souza MD [address] [place] [address] [facility] Start: 05-13-2025 Glaucoma screening Diabetes: R etinopathy Screening [facility] Start: 05-01-2025 Hemoglobin A1c measurement Diabetes: Hemoglobin A1C [facility] Start: 04-29-2025 End: 04-29-2025 Patient encounter procedure 04/29/2025 6:00 PM EDT [facility] [address] [place] [phone] Mckayla Blas, [employer] [address] [place] [phone] [facility] Start: 03-09-2025 Influenza vaccination [facility] Healthcare Start: 01-28-2025 End: 01-28-2025 Patient encounter procedure 01/28/2025 10:50 AM EDT Office Visit [facility] [address] [place] [address] Rain Souza MD [address] [place] [address] [facility] Start: 01-26-2025 End: 01-26-2025 Patient encounter procedure 01/26/2025 6:00 PM EDT [facility] [address] [place] [phone] Mckayla Blas, [employer]INTER [address] [place] [address] [facility] Start: 01-16-2025 Medicare Annual Wellness (AWV) Medicare Annual Wellness (AWV) [facility] Start: 01-07-2025 Hemoglobin A1c measurement Diabetes: Hemoglobin A1C [facility] Start: 12-15-2024 End: 12-27-2025 MG Breast - bilateral Screening Bilateral screening mammogram Imaging Routine Encounter for screening mammogram for malignant neoplasm of breast Expected: 12/15/2024 (Approximate), Expires: 12/27/2025 [facility] Work Phone: Comment on above: Expected: 12/15/2024 (Approximate), Expires: 12/27/2025 Start: 12-13-2024 Screening for malignant neoplasm of breast Mammogram [facility] Start: 11-11-2024 Urine screening for protein Diabetes: Urine Protein Screening [facility] Start: 10-27-2024 End: 10-27-2024 Patient encounter procedure 10/27/2024 2:00 PM EDT Office Visit [facility] [address] [place] [address] Mckayla Blas, SILVANO [address] [place] [phone] [facility] Start: 10-08-2024 End: 10-08-2024 Patient encounter procedure 10/08/2024 11:20 AM EDT Office Visit [facility] [address] [place] [address] Rain Souza MD [address] [place] [address] [facility] Start: 08-27-2024 End: 08-27-2024 Patient encounter procedure 08/27/2024 5:30 PM EST Office Visit [facility] [address] [place] [phone] Mckayla Blas, [employer]INTER [address] [place] [address] [facility] Start: 08-27-2024 End: 08-27-2025 25-hydroxyvitamin D3 [Mass/volume] in Serum or Plasma Vitamin D 25 hydroxy Lab Routine Vitamin deficiency Expected: 08/27/2024 (Approximate), Expires: 08/27/2025 [facility] Comment on above: Expected: 08/27/2024 (Approximate), Expires: 08/27/2025 Start: 08-27-2024 Hemoglobin A1c measurement Diabetes: Hemoglobin A1C [facility] Start: 08-27-2024 End: 08-27-2025 Hepatic function 2000 panel - Serum or Plasma Hepatic function panel Lab Routine Hyperlipidemia, unspecified (CMS/HCC) Expected: 08/27/2024 (Approximate), Expires: 08/27/2025 [facility] Comment on above: Expected: 08/27/2024 (Approximate), Expires: 08/27/2025 Start: 08-27-2024 End: 08-27-2025 Lipid 1996 panel - Serum or Plasma Lipid panel Lab Routine Mixed hyperlipidemia (CMS/HCC) Expected: 08/27/2024 (Approximate), Expires: 08/27/2025 [facility] Work Phone: Comment on above: Expected: 08/27/2024 (Approximate), Expires: 08/27/2025 Start: 08-27-2024 End: 08-27-2025 Microalbumin/Creatini ne panel in random Urine Microalbumin / creatinine, urine ratio Lab Routine Primary hypertension (CMS/HCC) Type 2 diabetes mellitus with complication, with long-term current use of insulin ([facility]/HCC) Expected: 08/27/2024 (Approximate), Expires: 08/27/2025 [facility] Comment on above: Expected: 08/27/2024 (Approximate), Expires: 08/27/2025 Start: 08-27-2024 End: 08-27-2025 Urate [Mass/volume] in Serum or Plasma Uric acid Lab Routine Gout, unspecified cause, unspecified chronicity, unspecified site Expected: 08/27/2024 (Approximate), Expires: 08/27/2025 [facility] Comment on above: Expected: 08/27/2024 (Approximate), Expires: 08/27/2025 Start: 08-27-2024 End: 08-27-2025 Urinalysis complete panel - Urine Urinalysis with reflex microscopic (clean catch) Lab Routine Primary hypertension ([facility]) Type 2 diabetes mellitus with complication, with long-term current use of insulin ([facility]) Tobacco user Gout, unspecified cause, unspecified chronicity, unspecified site Expected: 08/27/2024 (Approximate), Expires: 08/27/2025 [facility] Comment on above: Expected: 08/27/2024 (Approximate), Expires: 08/27/2025 Start: 08-26-2024 End: 08-26-2024 Patient encounter procedure 08/26/2024 10:30 AM EST Office Visit [facility] [address] [place] [phone] Rain Souza MD [address] [place] [address] [facility] Start: 07-14-2024 End: 07-14-2024 Patient encounter procedure 07/14/2024 6:30 PM EST Office Visit [facility] [address] [place] [address] Mckayla Blas NP [address] [place] [address] [facility] Start: 07-14-2024 End: 07-14-2024 Patient encounter procedure 07/14/2024 10:10 AM EST Office Visit [facility] [address] [place] [phone] Rain Souza MD [address] [place] [address] [facility] Start: 06-06-2024 Influenza vaccination Influenza Vacc ine (#1) [facility] Comment on above: Postponed from 03/09 (Patient Refused) Start: 05-27-2024 End: 05-27-2024 Patient encounter procedure 05/27/2024 9:50 AM EST Office Visit [facility] [address] [place] [address] Rain Souza MD [address] [place] [address] [facility] Start: 05-17-2024 Hemoglobin A1c measurement Diabetes: Hemoglobin A1C [facility] Start: 05-15-2024 End: 05-15-2024 Chart abstracting 05/15/2024 Abstract [facility] [address] [place] [address] Rain Souza MD [address] [place] [address] [facility] Start: 05-15-2024 End: 05-15-2024 Patient encounter procedure 05/15/2024 11:20 AM EST Office Visit [facility] [address] [place] [address] Rain Souza MD [address] [place] [address] [facility] Start: 04-17-2024 End: 04-17-2024 Patient encounter procedure 04/17/2024 3:40 PM EDT Office Visit [facility] [address] [place] [address] Mckayla Blas NP [address] [place] [address] [facility] Start: 04-14-2024 End: 04-14-2024 Patient encounter procedure 04/14/2024 11:00 AM EDT Office Visit [facility] [address] [place] [address] Mckayla Blas, [employer] [address] [place] [phone] Arrived [facility] Comment on above: Arrived Start: 03-09-2024 Influenza vaccination Influenza Vacc ine (#1) [facility] Start: 02-19-2024 Hemoglobin A1c measurement Diabetes: Hemoglobin A1C [facility] Start: 11-24-2023 Urine screening for protein Diabetes: Urine Protein Screening [facility] Start: 11-23-2023 Screening for malignant neoplasm of breast Mammogram [facility] Start: 10-15-2023 End: 10-15-2023 Patient encounter procedure 10/15/2023 4:30 PM EDT Office Visit [facility] [address] [place] [address] Mckayla Blas, SILVANO [address] [place] [phone] [facility] Start: 08-09-2023 Hemoglobin A1c measurement Diabetes: Hemoglobin A1C [facility] Start: 05-27-2021 Glaucoma screening Diabetes: R etinopathy Screening [facility] Start: 03-09-2020 Influenza vaccination Flu vacc ine (Season Ended) [place] Start: 10-07-2018 Screening for malignant neoplasm of cervix [facility] Start: 2010 Lipid panel Lipid screen [place], [place] Start: 2000 Screening for malignant neoplasm of cervix HPV/Cotest [facility] Start: 1991 Screening for malignant neoplasm of cervix Cervical cancer screen [place], [place] Start: 1989 DTaP/Tdap/Td vaccine (1 - Tdap) DTaP/Tdap/Td vaccine (1 - Tdap) [place] Start: 1985 HIV screening HIV screen Shantelle Alvarado h- [place], [place] Start: 1970 Medicare Annual Wellness (AWV) Medicare Annual Wellness (AWV) [facility] Start: 1970 Screening for malignant neoplasm of colon [facility] BLOOD CULTURE 1 BLOOD CULTURE 1 Lab Routine 12/04/2024 4:44 PM EDT [facility] BLOOD CULTURE 2 BLOOD CULTURE 2 Lab Routine 12/04/2024 5:28 PM EDT [facility] Immunizations Immunization Date Immunization Notes Care Provider [facility] 05-18-2023 influenza, injectabl e, quadrivalent, contains preservative Mckayla Blas [employer] Work Phone: [facility] 05-18-2023 influenza virus vacc ine, unspecified formulation Rain Souza MD Work Phone: [facility] 07-19-2021 SARS-CoV-2 (COVID-19 ) mRNA BNT-162b2 vax Podclass [facility] 10-28-2020 SARS-CoV-2 (COVID-19 ) mRNA BNT-162b2 vax Pod[employer] [facility] 10-08-2020 SARS-CoV-2 (COVID-19 ) mRNA BNT-162b2 vax Podclass [facility] 04-16-2017 influenza virus vacc ine, H5N1, A/[place]/ (national stockpile) Mckayla Blas [employer] Work Phone: [facility] 04-16-2017 influenza virus vacc ine, unspecified formulation Rain Souza MD Work Phone: [facility] 04-16-2017 influenza, unspecifi ed formulation Elbert ARAUZ [facility] 04-16-2017 pneumococcal polysaccharide vaccine, 23 valent Rain Souza MD Work Phone: [facility] 05-10-2016 influenza virus vacc ine, H5N1, A/[place]/ (national stockpile) Mckayla Blas [employer] Work Phone: [facility] 05-10-2016 influenza virus vacc ine, unspecified formulation Rain Souza MD Work Phone: [facility] 05-10-2016 influenza, unspecifi ed formulation Elbert ARAUZ [facility] 05-02-2013 influenza virus vacc ine, whole virus Rian Souza MD Work Phone: [facility] 05-02-2013 influenza, injectabl e, quadrivalent, contains preservative Mckayla Blas [employer] Work Phone: [facility] 05-02-2013 influenza, whole Elbert BARBARA ERS [facility] 01-29-1998 measles, mumps and rubella virus vaccine Rain Souza MD Work Phone: [facility] Payers Date Payer Category Payer Unknown [id number] 2023 Medicare (Managed Care) [id number]. [id number] 2023 Private Health Insurance [id number] 2023 Medicare [id number] 2018 Medicaid MEDICAID [facility] [id number] 2018-Present [phone] [place] [address] Medicaid [id number] 2013 Medicare [id number] .[id number] 1970 Unknown [id number] 2.16.840.1.302663.3.579.2.6 47 1970 Unknown [id number] 2.16.840.1.730471.3.579.2.5 93 1970 Unknown [id number] 2.16.840.1.249756.3.579.2.5 93 1970 Unknown [id number] 2.16.840.1.832213.3.579.2.5 93 1970 Unknown [id number] 2.16.840.1.626609.3.579.2.5 93 1970 Unknown [id number] 2.16.840.1.214749.3.579.2.5 93 1970 Unknown [id number] 2.16.840.1.045429.3.579.2.5 93 1970 Unknown [id number] 2.16.840.1.637410.3.579.2.5 93 1970 Unknown [id number] 2.16.840.1.381235.3.579.2.5 93 1970 Unknown [id number] 2.16.840.1.804084.3.579.2.5 93 1970 Unknown [id number] 2.16.840.1.959319.3.579.2.5 93 1970 Unknown [id number] 2.16.840.1.745814.3.579.2.5 93 1970 Unknown [id number] 2.16.840.1.467506.3.579.2.5 93 1970 Unknown [id number] 2.16.840.1.968530.3.579.2.5 93 1970 Unknown [id number] 2.16.840.1.285141.3.579.2.5 93 1970 Unknown [id number] 2.16.840.1.922686.3.579.2.5 93 1970 Unknown [id number] 2.16.840.1.897384.3.579.2.5 93 1970 Unknown [id number] 2.16.840.1.401211.3.579.2.5 93 1970 Unknown [id number] 2.16.840.1.885711.3.579.2.5 93 1970 Unknown [id number] 2.16.840.1.888443.3.579.2.5 93 1970 Unknown [id number] 2.16.840.1.428590.3.579.2.5 93 1970 Unknown [id number] 2.16.840.1.414140.3.579.2.5 93 1970 Unknown [id number] 2.16.840.1.989874.3.579.2.5 93 1970 Unknown [id number] 2.16.840.1.327901.3.579.2.7 27 1970 Unknown [id number] 2.16.840.1.228014.3.579.2.7 27 1970 Unknown [id number] 2.16.840.1.011891.3.579.2.1 259 1970 Unknown [id number] 2.16.840.1.367974.3.579.2.1 259 1970 Unknown [id number] 2.16.840.1.133242.3.579.2.1 259 1970 Unknown [id number] 2.16.840.1.484696.3.579.2.1 259 1970 Unknown [id number] 2.16.840.1.747215.3.579.2.1 259 1970 Unknown [id number] 2.16.840.1.087081.3.579.2.1 259 1970 Unknown [id number] 2.16.840.1.702013.3.579.2.1 259 1970 Unknown [id number] 2.16.840.1.786765.3.579.2.1 259 1970 Unknown [id number] 2.16.840.1.183002.3.579.2.1 259 1970 Unknown [id number] 2.16.840.1.125302.3.579.2.1 96 1959 Medicaid [id number] 1959 Private Health Insurance [id number] 1959 Unknown [id number] 2.16.840.1.818292.19 Social History Date Type Detail Facility Start: 02-17-2014 End: 01-29-2025 Tobacco smoking status NHIS Current every day smoker [place] Start: 02-17-1994 History of tobacco use Cigarette Smo ker [place] Start: 02-17-2014 End: 08-26-2024 Cigarettes smoked current (pack per day) - Reported [place] Start: 02-17-2014 Alcohol intake Current drinke r of alcohol (finding) [place] Start: 02-17-2014 Alcohol Comment Rare [facility] [place] Start: 1970 Sex Assigned At Not on file [place], [place] Exposure to SARS-CoV -2 (event) Unable to assess [place] Start: 02-06-2022 Tobacco smoking status Smoker (findi ng) [facility] Start: 07-10-2023 End: 08-26-2024 Sex Assigned At Female [facility] Start: 11-15-2022 End: 06-11-2024 Tobacco smoking status Heavy tobacco smoker (finding) [facility] Start: 07-10-2023 End: 01-29-2025 Tobacco use and exposure Smokeless tobacco non-user [facility] Start: 07-10-2023 End: 01-29-2025 Alcohol intake [...] Equipment Origin al Text Equipment Identifier Dates [id number] Start: 01-18-2024 USE TO TEST BLOO D SUGAR 4 TIMES DAILY [id number] Start: 07-07-2024 Functional Status Date Assessment Result [...] PM EDT Mychart, Generic Not at all [facility] 01-26-2025 Feeling bad about yourself-or that you are a failure or have let yourself or your family down Not at all 01/26/2025 4:13 PM EDT Mychart, Generic Not at all [facility] 01-26-2025 Trouble concentratin g on things, such as reading the newspaper or watching television Not at all 01/26/2025 4:13 PM EDT Mychart, Generic Not at all [facility] 01-26-2025 Moving or speaking s o slowly that other people could have noticed. Or the opposite - being so fidgety or restless that you have been moving around a lot more than usual Not at all 01/26/2025 4:13 PM EDT Mychart, Generic Not at all [facility] 01-26-2025 Thoughts that you wo uld be better off , or of hurting yourself in some way Not at all 01/26/2025 4:13 PM EDT Mychart, Generic Not at all [facility] 06-11-2024 Functional Status N/A [facility] 11-15-2022 Functional Status N/A [facility] 02-06-2022 Functional Status N/A [facility] Clinical Notes 01-19-2022 to 02-04-2025 Rain Souza [...] Follow-up as planned in 6 months. Thanks! [facility] 01-29-2025 History of Present illness Narrative [...] 25 mg, Oral, 2 times daily HYDROcodone-acetaminophen (Sophia) 5-325 MG tablet 1 tablet, 3 times [...] 09/17/2023 Angiomyolipoma Anxiety and depression 07/10/2023 Asthma ([facility]) 07/10/2023 Body mass index (BMI) 50.0-59.9, adult ([facility]) Cellulitis of left lower extremity Cervical cancer ([facility]) 09/17/2023 Chronic pain of both knees 09/17/2023 COPD (chronic obstructive pulmonary disease) ([facility]) 07/10/2023 COPD exacerbation ([facility]) 09/17/2023 Decreased functional mobility 09/17/2023 Diabetic neuropathy ([facility]) 07/10/2023 Dietary counseling and surveillance Edema 07/10/2023 Elevated sed rate Elevated WBC count Essential (primary) hypertension GERD (gastroesophageal reflux disease) 09/17/2023 Hyperlipidemia 09/17/2023 Hypertension 07/10/2023 Insomnia 09/17/2023 FDC (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 ([facility]) Lower extremity edema 09/17/2023 Mixed hyperlipidemia Morbid (severe) obesity due to excess calories ([facility]) Obstructive sleep apnea 07/10/2023 PAD (peripheral artery disease) 09/17/2023 Pancreatitis ([facility]) 09/17/2023 Pneumonia 09/17/2023 Proteinuria, unspecified Pulmonary hypertension ([facility]) 09/17/2023 Radiculopathy, lumbar region 09/17/2023 Tobacco user [...] 50.0 to 59.9 in adult ([facility]) Diet and exercise reviewed with the patient Follow up in about 4 months (around 06/01/2025). 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 Associated Problem(s): COPD (chronic [...] 25 mg, Oral, 2 times daily HYDROcodone-acetaminophen (Sophia) 5-325 MG tablet 1 tablet, 3 times [...] 09/17/2023 Angiomyolipoma Anxiety and depression 07/10/2023 Asthma ([facility]) 07/10/2023 Body mass index (BMI) 50.0-59.9, adult ([facility]) Cellulitis of left lower extremity Cervical cancer ([facility]) 09/17/2023 Chronic pain of both knees 09/17/2023 COPD (chronic obstructive pulmonary disease) ([facility]) 07/10/2023 COPD exacerbation ([facility]) 09/17/2023 Decreased functional mobility 09/17/2023 Diabetic neuropathy ([facility]) 07/10/2023 Dietary counseling and surveillance Edema 07/10/2023 Elevated sed rate Elevated WBC count Essential (primary) hypertension GERD (gastroesophageal reflux disease) 09/17/2023 Hyperlipidemia 09/17/2023 Hypertension 07/10/2023 Insomnia 09/17/2023 FDC (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 ([facility]) Lower extremity edema 09/17/2023 Mixed hyperlipidemia Morbid (severe) obesity due to excess calories ([facility]) Obstructive sleep apnea 07/10/2023 PAD (peripheral artery disease) 09/17/2023 Pancreatitis ([facility]) 09/17/2023 Pneumonia 09/17/2023 Proteinuria, unspecified Pulmonary hypertension ([facility]) 09/17/2023 Radiculopathy, lumbar region 09/17/2023 Tobacco user 09/17/2023 Type 2 diabetes mellitus with complication, with long-term current use of insulin ([facility]) 07/10/2023 Unilateral primary osteoarthritis, right hip 09/17/2023 [...] List Items Addressed This Visit Diabetic neuropathy ([facility]) Continue with cintia hudson mgmt is prescribing OARRS reviewed Fu in 3 months Goal: tighter glucose control, this has been improving, latest A1c is 7.4%!!! 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 Hypertension Please check blood pressure daily and record DASH diet Limit caffeine Take medication as directed Contact office if chest pain, pressure, dizziness, shortness of breath, swelling legs Recommend slow position changes Current meds: hydralazine, lisinopril, Relevant Medications hydrALAZINE (Apresoline) 25 MG tablet lisinopril 20 MG tablet Type 2 diabetes mellitus with complication, with long-term current use of insulin ([facility]) Check blood sugars daily, notify if <70 [...] MG tablet Pulmonary hypertension (HCC) Has seen [facility] Cardiology Hyperlipidemia On statin therapy [...] excess calories ([facility]) Discussed with patient their BMI (actual, verses [...] Associated Problem(s): Pulmonary hypertension (HCC) Has seen [facility] Cardiology Associated Problem(s): Hypertension Please check [...] a yearly basis documented in this encounter [facility] 01-26-2025 Instructions Mckayla Blas NP - 01/26/2025 6:00 PM EDT Please call the [facility] to schedule your mammogram: [phone]- ext [phone] documented in this encounter [facility] 01-06-2025 Note Cardiovascular Medic [facility] SUBJECTIVE Chief Complaint Patient presents with Congestive Heart Failure Hypertension Hyperlipidemia Mitzi Macias is a 54 y.o. female here for follow-up. PMHx: HFpEF, HTN, HLD, DM, longstanding heavy smoker, COPD, DANIEL, morbid obesity HPI 01/06/2025 Since last seen she was admitted to [facility] for AMS on 12/05/2024. She was [...] Bilateral lower extremity edema BMI 50.0-59.9, adult ([facility]) Candidiasis of breast Cardiomegaly Cervical cancer ([facility]) Chronic pain of both knees Closed fracture of upper end of humerus Acute respiratory distress syndrome ([facility]) Decreased functional mobility Diabetic neuropathy ([facility]) Easy bruising GERD (gastroesophageal reflux disease) Gout [...] long-term current use of insulin ([facility]) Unilateral primary osteoarthritis, right hip Vaginal yeast infection Venous insufficiency Bad odor of urine Critical limb ischemia of right lower extremity ([facility]) Hyperpigmentation of skin 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 2 diabetes mellitus ([facility]) Myelolipoma of adrenal gland Venous ulcer of right leg ([facility]) Chronic diastolic heart failure ([facility]) Antibiotic-induced yeast infection Cellulitis of left lower extremity Cigarette nicotine dependence without complication Fever 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 ([facility]) FDC current use of inhaled steroid Vitamin D deficiency, unspecified Vitamin deficiency Past Medical History: Diagnosis Date COPD (chronic obstructive pulmonary disease) ([facility]) Diabetes mellitus ([facility]) Hyperlipidemia Hypertension Sleep apnea Family History Problem [...] , Rfl: ergocalciferol (Vitamin D-2) 1.25 MG (80649 Units) capsule, Take 1.25 mg by mouth., [...] and at bedtime., Disp: , Rfl: HYDROcodone-acetaminophen (Sophia) 5-325 mg tablet, TAKE 1 TABLET BY MOUTH THREE TIMES A DAY NEEDED FOR PAIN MUST LAST 30 DAYS, Disp: , Rfl: insulin aspart (NovoLOG) 100 unit/mL (3 mL) injection pen, Novolog Flexpen U-100 Insulin aspart 100 unit/mL (3 mL) subcutaneous, Disp: , Rfl: insulin glargine (Lantus Solostar U-100 Insulin) 100 unit/mL (3 mL) injection pen (more content not included)... [facility] 01-06-2025 Note Patient is here toda [...] weight gain. Cardiovascular: Positive for leg swelling. [facility] 12-09-2024 History of Present illness Narrative [...] bad light. She was ultimately taken to [facility] ER, no tox screen was done [...] 25 mg, Oral, 2 times daily HYDROcodone-acetaminophen (Sophia) 5-325 MG tablet 1 tablet, 3 times [...] CT Albuminuria 09/17/2023 Angiomyolipoma Anxiety and depression ([facility]) 07/10/2023 Asthma 07/10/2023 Body mass index (BMI) 50.0-59.9, adult ([facility]) Cellulitis of left lower extremity Cervical cancer ([facility]) 09/17/2023 Chronic pain of both knees 09/17/2023 COPD (chronic obstructive pulmonary disease) ([facility] 07/10/2023 COPD exacerbation ([facility]) 09/17/2023 Decreased functional mobility 09/17/2023 Diabetic neuropathy ([facility]) 07/10/2023 Dietary counseling and surveillance Edema 07/10/2023 Elevated sed rate Elevated WBC count Essential (primary) hypertension ([facility]) GERD (gastroesophageal reflux disease) 09/17/2023 Hyperlipidemia ([facility]) 09/17/2023 Hypertension ([facility]) 07/10/2023 Insomnia 09/17/2023 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 ([facility]) Lower extremity edema 09/17/2023 Mixed hyperlipidemia ([facility]) Morbid (severe) obesity due to excess calories ([facility]) Obstructive sleep apnea 07/10/2023 PAD (peripheral artery disease) ([facility]) 09/17/2023 Pancreatitis 09/17/2023 Pneumonia 09/17/2023 Proteinuria, unspecified Pulmonary hypertension ([facility]) 09/17/2023 Radiculopathy, lumbar region 09/17/2023 Tobacco user 09/17/2023 Type 2 diabetes mellitus with complication, with long-term current use of insulin ([facility]) 07/10/2023 Unilateral primary osteoarthritis, right hip 09/17/2023 [...] Problem List Items Addressed This Visit Hypertension ([facility]) Please check blood pressure daily and record DASH diet Limit caffeine Take medication as directed Contact office if chest pain, pressure, dizziness, shortness of breath, swelling legs Recommend slow position changes Current meds: hydralazine, lisinopril, Type 2 diabetes mellitus with complication, with long-term current use of insulin ([facility]) Check blood sugars daily, notify if <70 [...] this today Pulmonary hypertension (CMS/HCC) Has seen [facility] Cardiology Morbid (severe) obesity due to excess calories ([facility]) Discussed with patient their BMI (actual, verses [...] Associated Problem(s): Pulmonary hypertension (CMS/HCC) Has seen [facility] Cardiology Associated Problem(s): Hypertension (CMS/HCC) Please [...] wearing this today documented in this encounter [facility] 12-09-2024 Instructions Mckayla Blas NP - 12/09/2024 10:00 AM EDT Keep appt with wound care today Keep fu with me, sooner if needed documented in this encounter [facility] 10-27-2024 History of Present illness Narrative Associated [...] 25 mg, Oral, 2 times daily HYDROcodone-acetaminophen (Sophia) 5-325 MG tablet 1 tablet, 3 times [...] 09/17/2023 Angiomyolipoma Anxiety and depression ([facility]) 07/10/2023 Asthma 07/10/2023 Body mass index (BMI) 50.0-59.9, adult ([facility]) Cellulitis of left lower extremity Cervical cancer ([facility]) 09/17/2023 Chronic pain of both knees 09/17/2023 COPD (chronic obstructive pulmonary disease) ([facility]) 07/10/2023 COPD exacerbation ([facility]) 09/17/2023 Decreased functional mobility 09/17/2023 Diabetic neuropathy ([facility]) 07/10/2023 Dietary counseling and surveillance Edema 07/10/2023 Elevated sed rate Elevated WBC count Essential (primary) hypertension ([facility]) GERD (gastroesophageal reflux disease) 09/17/2023 Hyperlipidemia ([facility]) 09/17/2023 Hypertension ([facility]) 07/10/2023 Insomnia 09/17/2023 FDC (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 ([facility]) Lower extremity edema 09/17/2023 Mixed hyperlipidemia ([facility]) Morbid (severe) obesity due to excess calories ([facility]) Obstructive sleep apnea 07/10/2023 PAD (peripheral artery disease) ([facility]) 09/17/2023 Pancreatitis 09/17/2023 Pneumonia 09/17/2023 Proteinuria, unspecified Pulmonary hypertension ([facility]) 09/17/2023 Radiculopathy, lumbar region 09/17/2023 Tobacco user 09/17/2023 Type 2 diabetes mellitus with complication, with long-term current use of insulin ([facility]) 07/10/2023 Unilateral primary osteoarthritis, right hip 09/17/2023 [...] long-term current use of insulin ([facility]) Check blood sugars daily, notify if <70 [...] 81 MG chewable tablet Anxiety and depression ([facility]) Current meds: elavil, duloxtine, Relevant Medications DULoxetine (Cymbalta) [address] capsule Bilateral lower extremity edema Limit sodium , elevate legs, furosemide Relevant Medications furosemide (Lasix) 20 MG tablet potassium chloride ER (Micro-K) 10 MEQ ER capsule furosemide (Lasix) 40 MG tablet Insomnia Relevant Medications amitriptyline (Elavil) 25 MG tablet PAD (peripheral artery disease) ([facility]) Asa, statin Quit smoking BP and DM [...] MG tablet Venous ulcer of right leg ([facility]) Continue with wound care and management of wound, currently they are using dakins Wound is improving Morbid (severe) obesity due to excess calories ([facility]) Discussed with patient their BMI (actual, verses [...] mounjaro for DM Chronic diastolic heart failure ([facility]) Current meds; asa, farxiga, lasix, hydralazine, lisinopril, Follows with [facility] Reviewed 08/02 notes Cigarette nicotine dependence without complication Is currently using chantix, and is doing well, less desire, smoking less Vitamin D deficiency, unspecified Relevant Medications ergocalciferol (Vitamin D2) 1.25 MG (84292 UT) capsule Gastro-esophageal reflux disease without esophagitis Relevant Medications omeprazole (PriLOSEC) [address] capsule Other Visit Diagnoses Type 2 diabetes mellitus with unspecified complications Relevant Medications dapagliflozin (Farxiga) 10 MG Associated Problem(s): Cigarette nicotine dependence without complication Is currently using chantix, and is doing well, less desire, smoking less Associated Problem(s): Anxiety and depression ([facility]) Current meds: elavil, duloxtine, Associated Problem(s): Type 2 diabetes mellitus with complication, with long-term current use of insulin ([facility]) Check blood sugars daily, notify if <70 [...] A1c is 7.4%!!! documented in this encounter [facility] 10-27-2024 Instructions Mckayla Blas NP - 10/27/2024 2:00 PM EDT No dose changes in meds You will be due for mammogram I will send order to [facility], they should call you to schedule If no call, please call [phone] ext [phone] documented in this encounter [facility] 10-08-2024 History of Present illness Narrative Images [...] or chew. ergocalciferol (Vitamin D2) 1.25 MG (12527 UT) capsule TAKE 1 CAPSULE BY MOUTH [...] 25 mg, Oral, 2 times daily HYDROcodone-acetaminophen (Sophia) 5-325 MG tablet 1 tablet, 3 times [...] CT Albuminuria 09/17/2023 Angiomyolipoma Anxiety and depression ([facility]) 07/10/2023 Asthma ([facility]) 07/10/2023 Body mass index (BMI) 50.0-59.9, adult ([facility]) Cellulitis of left lower extremity Cervical cancer ([facility]) 09/17/2023 Chronic pain of both knees 09/17/2023 COPD (chronic obstructive pulmonary disease) ([facility] 07/10/2023 COPD exacerbation ([facility]) 09/17/2023 Decreased functional mobility 09/17/2023 Diabetic neuropathy ([facility]) 07/10/2023 Dietary counseling and surveillance Edema 07/10/2023 Elevated sed rate Elevated WBC count Essential (primary) hypertension ([facility]) GERD (gastroesophageal reflux disease) 09/17/2023 Hyperlipidemia ([facility]) 09/17/2023 Hypertension ([facility]) 07/10/2023 Insomnia 09/17/2023 FDC (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 ([facility]) Lower extremity edema 09/17/2023 Mixed hyperlipidemia ([facility]) Morbid (severe) obesity due to excess calories ([facility]) Obstructive sleep apnea 07/10/2023 PAD (peripheral artery disease) ([facility]) 09/17/2023 Pancreatitis 09/17/2023 Pneumonia 09/17/2023 Proteinuria, unspecified Pulmonary hypertension ([facility]) 09/17/2023 Radiculopathy, lumbar region 09/17/2023 Tobacco user 09/17/2023 Type 2 diabetes mellitus with complication, with long-term current use of insulin ([facility]) 07/10/2023 Unilateral primary osteoarthritis, right hip 09/17/2023 [...] long-term current use of insulin ([facility]) - POCT glucose manually resulted - POCT [...] months (around 02/07/2025). documented in this encounter [facility] 08-27-2024 History of Present illness Narrative Associated [...] Compliance with prior treatments has been variable. Mtizi is thinking about quitting. Mitzi has tried [...] or chew. ergocalciferol (Vitamin D2) 1.25 MG (00359 UT) capsule TAKE 1 CAPSULE BY MOUTH [...] 25 mg, Oral, 2 times daily HYDROcodone-acetaminophen (Sophia) 5-325 MG tablet 1 tablet, 3 times [...] CT Albuminuria 09/17/2023 Angiomyolipoma Anxiety and depression ([facility]) 07/10/2023 Asthma ([facility]) 07/10/2023 Body mass index (BMI) 50.0-59.9, adult ([facility]) Cellulitis of left lower extremity Cervical cancer ([facility]) 09/17/2023 Chronic pain of both knees 09/17/2023 COPD (chronic obstructive pulmonary disease) ([facility]) 07/10/2023 COPD exacerbation ([facility]) 09/17/2023 Decreased functional mobility 09/17/2023 Diabetic neuropathy ([facility]) 07/10/2023 Dietary counseling and surveillance Edema 07/10/2023 Elevated sed rate Elevated WBC count Essential (primary) hypertension ([facility]) GERD (gastroesophageal reflux disease) 09/17/2023 Hyperlipidemia ([facility]) 09/17/2023 Hypertension ([facility]) 07/10/2023 Insomnia 09/17/2023 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 ([facility]) Lower extremity edema 09/17/2023 Mixed hyperlipidemia ([facility]) Morbid (severe) obesity due to excess calories ([facility]) Obstructive sleep apnea 07/10/2023 PAD (peripheral artery disease) ([facility]) 09/17/2023 Pancreatitis 09/17/2023 Pneumonia 09/17/2023 Proteinuria, unspecified Pulmonary hypertension ([facility]) 09/17/2023 Radiculopathy, lumbar region 09/17/2023 Tobacco user 09/17/2023 Type 2 diabetes mellitus with complication, with long-term current use of insulin ([facility] 07/10/2023 Unilateral primary osteoarthritis, right hip 09/17/2023 [...] Addressed This Visit Diabetic neuropathy ([facility]) Continue with cintia hudson mgmt is prescribing OARRS reviewed Fu in 3 months Goal: tighter glucose control Hypertension ([facility]) Please check blood pressure daily and record [...] long-term current use of insulin ([facility]) Check blood sugars daily, notify if <70 [...] / creatinine, urine ratio Anxiety and depression ([facility]) - Primary Current meds: elavil, duloxtine, PHQ [...] Uric acid Venous ulcer of right leg ([facility]) Continue with wound for treatment Had recent [...] Morbid (severe) obesity due to excess calories ([facility]) Discussed with patient their BMI (actual, verses [...] Asthma (CMS/HCC) Current meds: albuterol, duoneb, 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 [facility] 07-14-2024 History of Present illness Narrative [...] or chew. ergocalciferol (Vitamin D2) 1.25 MG (60735 UT) capsule TAKE 1 CAPSULE BY MOUTH ONE TIME PER WEEK furosemide (LASIX) 40 mg, Oral, Daily furosemide (LASIX) 20 mg, Oral, Daily PRN, Take in the afternoon as needed hydrALAZINE (APRESOLINE) 25 mg, Oral, 2 times daily HYDROcodone-acetaminophen (Sophia) 5-325 MG tablet 1 tablet, 3 times [...] CT Albuminuria 09/17/2023 Angiomyolipoma Anxiety and depression ([facility]) 07/10/2023 Asthma ([facility]) 07/10/2023 Body mass index (BMI) 50.0-59.9, adult ([facility]) Cellulitis of left lower extremity Cervical cancer ([facility]) 09/17/2023 Chronic pain of both knees 09/17/2023 COPD (chronic obstructive pulmonary disease) ([facility]) 07/10/2023 COPD exacerbation ([facility] 09/17/2023 Decreased functional mobility 09/17/2023 Diabetic neuropathy ([facility]) 07/10/2023 Dietary counseling and surveillance Edema 07/10/2023 Elevated sed rate Elevated WBC count Essential (primary) hypertension ([facility]) GERD (gastroesophageal reflux disease) 09/17/2023 Hyperlipidemia ([facility]) 09/17/2023 Hypertension ([facility]) 07/10/2023 Insomnia 09/17/2023 FDC (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 ([facility]) Lower extremity edema 09/17/2023 Mixed hyperlipidemia ([facility]) Morbid (severe) obesity due to excess calories ([facility]) Obstructive sleep apnea 07/10/2023 PAD (peripheral artery disease) ([facility]) 09/17/2023 Pancreatitis 09/17/2023 Pneumonia 09/17/2023 Proteinuria, unspecified Pulmonary hypertension ([facility]) 09/17/2023 Radiculopathy, lumbar region 09/17/2023 Tobacco user 09/17/2023 Type 2 diabetes mellitus with complication, with long-term current use of insulin ([facility]) 07/10/2023 Unilateral primary osteoarthritis, right hip 09/17/2023 [...] Addressed This Visit Diabetic neuropathy ([facility]) Continue with tristan [facility] reviewed Fu in 3 months COPD (chronic obstructive pulmonary disease) ([facility]) Stable at this time, no changes in meds Encouraged smoking cessation Cont with dr Yañez Hypertension ([facility]) - Primary Please check blood pressure daily and record DASH diet Limit caffeine Take medication as directed Contact office if chest pain, pressure, dizziness, shortness of breath, swelling legs Recommend slow position changes Current meds: hydralazine, lisinopril, Type 2 diabetes mellitus with complication, with long-term current use of insulin ([facility]) Check blood sugars daily, notify if <70 [...] prescribing PAD (peripheral artery disease) ([facility]) Asa, statin Quit smoking BP and DM [...] to 4 cm in diameter ([facility]) Continue with Urology Kidney stone Continue with Urology Non-seasonal allergic rhinitis Relevant Medications cetirizine (ZyrTEC) 10 MG tablet Critical limb ischemia of right lower extremity ([facility]) Saw vascular, does have narrowing in arteries in legs, and thus the wounds not healing At this point they strongly urge to quit smoking or risk limb amputation Cont asa and statin Also good blood pressure and sugar control Venous ulcer of right leg ([facility]) Encounter for smoking cessation counseling Relevant Medications nicotine (Nicoderm, Step 1) 21 MG/24HR patch Other Visit Diagnoses Type 2 diabetes mellitus with unspecified complications ([facility]) Quitting smokinppd, chantix not helped, ] Face [...] long-term current use of insulin ([facility]) Check blood sugars daily, notify if <70 [...] Associated Problem(s): COPD (chronic obstructive pulmonary disease) ([facility]) Stable at this time, no changes in meds Encouraged smoking cessation Cont with dr Yañez Associated Problem(s): Diabetic neuropathy ([facility]) Continue with tristan EAST reviewed Fu in 3 months documented in this encounter [facility] 06-11-2024 Hospital Discharge instructions Patient Education 06/11/2024 [...] require a prescription. You can also purchase ysmq-nuj-mwwkflo medicines. Medicines may have nicotine in them [...] and encouragement. Call telephone quitlines, such as 8-401-HQAF-NOW, reach out to support groups, or work [...] provider. Document Revised: 06/16/2022 Document Reviewed: 06/16/2022 eduClipper Patient Education 2023 [employer]. 06/11/2024 10:39:22 Dietary Guidelines to Help Prevent [...] include: ?8 oz (237 mL) of milk, vmfqbxx-kpfiqkzxpdai-cvavx milk, and calcium-fortifiedfruit juice. Calcium-fortified means that [...] potatoes, and Kyrgyz chard. ?Peanuts. ?Potato chips, bahraini fries, and baked potatoes with skin on. ?Nuts and nut products. ?Chocolate. If you regularly take a diuretic medicine, make sure to eat at least 1 or 2 servings of fruits or vegetables that are high in potassium each day. These include: ?Avocado. ?Banana. ?[place], prune, carrot, or tomato juice. ?Baked potato. [...] magnesium, fish oil, or vitamin B6. Take vcog-pzd-fdanejb and prescription medicines only as told by [...] Casseroles. Pizza. Lasagna. Frozen meals. Potato chips. Upper Sorbian fries. The items listed above may not [...] provider. Document Revised: 10/05/2022 Document Reviewed: 10/05/2022 eduClipper Patient Education 2023 [employer]. Follow Up Care 05/06/2024 08:24:56 With:REGLA PHIPPS, Elbert Joya, URL Address: [facility] [address], [place] [address]- When: Unknown [facility] 05-27-2024 History of Present [...] or chew. ergocalciferol (Vitamin D2) 1.25 MG (58977 UT) capsule TAKE 1 CAPSULE BY MOUTH ONE TIME PER WEEK furosemide (LASIX) 20 mg, Oral, Daily PRN, Take in the afternoon as needed furosemide (LASIX) 40 mg, Oral, Daily Glucose Blood (ACCU-CHEK JAQUI PLUS ) 4 times daily hydrALAZINE (APRESOLINE) 25 mg, Oral, 2 times daily HYDROcodone-acetaminophen (Sophia) 5-325 MG tablet 1 tablet, 3 times [...] CT Albuminuria 09/17/2023 Angiomyolipoma Anxiety and depression ([facility]) 07/10/2023 Asthma ([facility]) 07/10/2023 Body mass index (BMI) 50.0-59.9, adult [place] Cellulitis of left lower extremity Cervical cancer ([facility] 09/17/2023 Chronic pain of both knees 09/17/2023 COPD (chronic obstructive pulmonary disease) ([facility] 07/10/2023 COPD exacerbation ([facility]) 09/17/2023 Decreased functional mobility 09/17/2023 Diabetic neuropathy ([facility]) 07/10/2023 Dietary counseling and surveillance Edema 07/10/2023 Elevated sed rate Elevated WBC count GERD (gastroesophageal reflux disease) 09/17/2023 Hyperlipidemia ([facility] 09/17/2023 Hypertension ([facility] 07/10/2023 Insomnia 09/17/2023 FDC (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 ([facility] Lower extremity edema 09/17/2023 Morbid (severe) obesity due to excess calories ([facility]) Obstructive sleep apnea 07/10/2023 PAD (peripheral artery disease) ([facility] 09/17/2023 Pancreatitis 09/17/2023 Pneumonia 09/17/2023 Proteinuria, unspecified Pulmonary hypertension ([facility]) 09/17/2023 Radiculopathy, lumbar region 09/17/2023 Tobacco user 09/17/2023 Type 2 diabetes mellitus with complication, with long-term current use of insulin ([facility] 07/10/2023 Unilateral primary osteoarthritis, right hip 09/17/2023 [...] long-term current use of insulin ([facility]) - POCT glucose manually resulted - POCT glycosylated hemoglobin (Hb A1C) docked device We will continue with Lantus 58, lispro 02/16/12 according to meal size, Mounjaro 15 mg once weekly, Farxiga 5 mg once a day Encounter for dietary consultation Vitamin D deficiency Primary hypertension ([facility]) To follow with her PCP Insulin long-term use ([facility]) Hyperlipemia, mixed ([facility]) Continue with Zocor 10 mg once daily Microalbuminuria Class 3 severe obesity due to excess calories with serious comorbidity and body mass index (BMI) of 50.0 to 59.9 in adult ([facility]) Diet and exercise reviewed with the patient Follow up in about 3 months (around 08/27/2024). documented in this encounter [facility] 04-14-2024 History of Present illness Narrative Associated [...] being taken. She does not see a club concierge.Eye exam is not current. Hypertension This is [...] or chew. ergocalciferol (Vitamin D2) 1.25 MG (36668 UT) capsule TAKE 1 CAPSULE BY MOUTH ONE TIME PER WEEK furosemide (LASIX) 20 mg, Oral, Daily PRN, Take in the afternoon as needed furosemide (LASIX) 40 mg, Oral, Daily Glucose Blood (ACCU-CHEK JAQUI PLUS ) 4 times daily HumaLOG KWIKPEN 100 UNIT/ML injection Subcutaneous hydrALAZINE (APRESOLINE) 25 mg, Oral, 2 times daily HYDROcodone-acetaminophen (Sophia) 5-325 MG tablet 1 tablet, 3 times [...] CT Albuminuria 09/17/2023 Angiomyolipoma Anxiety and depression ([facility]) 07/10/2023 Asthma ([facility] 07/10/2023 Cellulitis of left lower extremity Cervical cancer ([facility]) 09/17/2023 Chronic pain of both knees 09/17/2023 COPD (chronic obstructive pulmonary disease) ([facility] 07/10/2023 COPD exacerbation ([facility]) 09/17/2023 Decreased functional mobility 09/17/2023 Diabetic neuropathy ([facility] 07/10/2023 Edema 07/10/2023 Elevated sed rate Elevated WBC count GERD (gastroesophageal reflux disease) 09/17/2023 Hyperlipidemia ([facility]) 09/17/2023 Hypertension ([facility]) 07/10/2023 Insomnia 09/17/2023 Lower extremity edema 09/17/2023 Obstructive sleep apnea 07/10/2023 PAD (peripheral artery disease) ([facility] 09/17/2023 Pancreatitis 09/17/2023 Pneumonia 09/17/2023 Pulmonary hypertension ([facility]) 09/17/2023 Radiculopathy, lumbar region 09/17/2023 Tobacco user 09/17/2023 Type 2 diabetes mellitus with complication, with long-term current use of insulin ([facility] 07/10/2023 Unilateral primary osteoarthritis, right hip 09/17/2023 [...] Addressed This Visit Diabetic neuropathy ([facility]) Continue with tristan EAST reviewed Fu in 3 months Relevant Medications pregabalin (Lyrica) 300 MG capsule COPD (chronic obstructive pulmonary disease) ([facility]) - Primary Stable at this time, no changes in meds Encouraged smoking cessation Cont with dr Yañez Hypertension ([facility]) Stable on current meds Refill meds Relevant Medications hydrALAZINE (Apresoline) 25 MG tablet lisinopril 20 MG tablet Type 2 diabetes mellitus with complication, with long-term current use of insulin ([facility]) Check blood sugars daily, follow w Endo. [...] 500 MCG tablet documented in this encounter [facility] 11-15-2022 Hospital Discharge instructions Patient Education 11/15/2022 [...] include: ?8 oz (237 mL) of milk, ppvckwb-kfadvczoznsv-thrzz milk, and calcium-fortifiedfruit juice. Calcium-fortified means that [...] potatoes, and Kyrgyz chard. ?Peanuts. ?Potato chips, bahraini fries, and baked potatoes with skin on. ?Nuts and nut products. ?Chocolate. If you regularly take a diuretic medicine, make sure to eat at least 1 or 2 servings of fruits or vegetables that are high in potassium each day. These include: ?Avocado. ?Banana. ?[place], prune, carrot, or tomato juice. ?Baked potato. [...] magnesium, fish oil, or vitamin B6. Take xfie-dzj-huijmoq and prescription medicines only as told by [...] Casseroles. Pizza. Lasagna. Frozen meals. Potato chips. Upper Sorbian fries. The items listed above may not [...] provider. Document Revised: 03/06/2022 Document Reviewed: 03/06/2022 eduClipper Patient Education 2022 [employer]. Follow Up Care 02/06/2022 11:44:09 With:SILVIA HOWELL, SARAH Webb, URL Address: [address] [place] [address] When: Unknown [facility] 08-24-2022 Note CONSULTATION CONSULTATION DATE: [...] We maintain her on pain medication with Sophia 5/325 t.i.d., diclofenac 75 mg b.i.d. Her [...] her at this point. A refill for Sophia 5/325 t.i.d. and diclofenac 75 mg b.i.d. will be sent to the pharmacy. Vitamin compliance and nutrition were discussed and enforced. I did highly encourage her to use exercise bands to increase the strength in her lower extremities. We will see her in three months' time, unless otherwise indicated, and patient agrees. [facility] 05-11-2022 Note CONSULTATION CONSULTATION DATE: 05/11/2022 [...] 150. Medications include Lyrica 300 mg b.i.d., Sophia 5/325 t.i.d., diclofenac 75 mg b.i.d. and [...] her medications today. We will maintain Lyrica, Sophia and diclofenac at the set dose and frequency. We will follow-up in the clinic in three months' time. The patient is in agreement to this. Vitamin importance and nutrition were discussed. [facility] 04-20-2022 Note CONSULTATION CONSULTATION DATE: 04/20/2022 [...] medications include Tylenol, Lyrica 300 mg b.i.d., Sophia 5/325 t.i.d., amitriptyline, diclofenac and duloxetine. Patient's [...] up in the clinic. [facility] 03-08-2022 Evaluation note Encounter Date Diagnosis [...] to the DANIEL. Thrombocytopenia is unclear etiology. [facility] 08-15-2022 Evaluation note* Encounter Date Diagnosis [...] follow with Dr. Souza and Dr. Arauz. [facility] 08-01-2022 Hospital Discharge instructions Patient Education [...] fried and sweet foods. General instructions Take yasw-ocl-fztvvcq and prescription medicines only as told by [...] 04/21/2010 Document Revised: 10/16/2019 Document Reviewed: 07/11/2018 eduClipper Patient Education 2020 [employer]. Follow Up Care 01/05/2022 12:02:03 With:REGLA PHIPPS, Elbert Joya, URL Address: [facility] [address], [place] [address] [phone] When:Within 6 Month(s) Comments:w/ repeat CT A/P [facility] 07-14-2022 NoteCONSULTATION PROCEDURE DATE: 01/19/2022 PRE AND [...] by: GIL VALENZUELA . 01/27/2022 14:15:00[facility]07-14-2022 NoteCONSULTATION CONSULTATION DATE: 01/19/2022 This is [...] today. Medications include Lyrica 300 mg b.i.d., Sophia 5/325 t.i.d., diclofenac 75 mg b.i.d. and [...] by: GIL VALENZUELA . 01/27/2022 [facility] Future Appointments Appointment Date:08/14/2022 09:15:00 AM Scheduled Provider:Elbert ARAUZ MD Location:[facility] Appointment Type:URO Office Visit [facility] evaluation + Plan note Future Appointments Appointment Date:04/22/2024 10:00:00 AM Scheduled Provider:SARAH VEGA PA-C Location:[facility] Appointment Type:URO Office Visit [facility] evalzsjqen note* Diagnosis Type 2 diabetes mellitus with unspecified complications ([facility]) Edema, unspecified Edema [facility] Diagnosis Vaginal yeast infection- Primary Candidiasis of vulva and vagina [facility]* Diagnosis Primary hypertension ([facility])- Primary Unspecified essential hypertension Insomnia Insomnia, unspecified Type 2 diabetes mellitus with complication, with long-term current use of insulin ([facility]) Non-seasonal allergic rhinitis, unspecified trigger Type 2 diabetes mellitus with unspecified complications ([facility]/HCC) Anxiety and depression ([facility]/HCC) Gastro-esophageal reflux disease without esophagitis Edema, unspecified Edema Diabetic polyneuropathy associated with type 2 diabetes mellitus ([facility]) Chronic obstructive pulmonary disease, unspecified ([facility]/HCC) Pulmonary emphysema, unspecified emphysema type ([facility]/HCC) Bilateral lower extremity edema Tobacco user Tobacco use disorder Hyperpigmentation of skin Other dyschromia documented in this encounter [facility]* Diagnosis Obstructive sleep apnea- Primary Obstructive sleep apnea (adult) (pediatric) Pulmonary emphysema, unspecified emphysema type ([facility]/HCC) Primary hypertension ([facility]) Unspecified essential hypertension Type 2 diabetes mellitus with complication, with long-term current use of insulin ([facility]) Anxiety and depression ([facility]) Bilateral lower extremity edema Pulmonary emphysema, unspecified emphysema type ([facility]CC)- Primary Primary hypertension ([facility]) Unspecified essential hypertension Class 3 severe obesity with serious comorbidity and body mass index (BMI) of 50.0 to 59.9 in adult, unspecified obesity type ([facility]) Obstructive sleep apnea Obstructive sleep apnea (adult) (pediatric) Pulmonary hypertension ([facility]) Other chronic pulmonary heart diseases Tobacco user Tobacco use disorder Cardiomegaly Primary hypertension ([facility])- Primary Unspecified essential hypertension Gastroesophageal reflux disease, unspecified whether esophagitis present Type 2 diabetes mellitus with complication, with long-term current use of insulin ([facility]) Mixed hyperlipidemia ([facility]) Mixed hyperlipidemia Tobacco user Tobacco use disorder Encounter for screening mammogram for malignant neoplasm of breast Chronic obstructive pulmonary disease, unspecified ([facility]) Other specified chronic obstructive pulmonary disease ([facility]) Anxiety and depression ([facility]) Edema, unspecified Edema Hyperlipidemia, unspecified ([facility]) Diabetic polyneuropathy associated with type 2 diabetes mellitus ([facility]) Gout, unspecified cause, unspecified chronicity, unspecified site Non-seasonal allergic rhinitis, unspecified trigger Bilateral lower extremity edema COPD exacerbation ([facility]) Obstructive chronic bronchitis with exacerbation Pulmonary emphysema, unspecified emphysema type ([facility]) Venous insufficiency Unspecified venous (peripheral) insufficiency Candidiasis of breast COPD exacerbation ([facility])- Primary Obstructive chronic bronchitis with exacerbation Pulmonary hypertension ([facility]) Other chronic pulmonary heart diseases Class 3 severe obesity with serious comorbidity and body mass index (BMI) of 50.0 to 59.9 in adult, unspecified obesity type ([facility]) Encounter for subsequent annual wellness visit (AWV) in Medicare patient- Primary Type 2 diabetes mellitus with unspecified complications ([facility]) Pulmonary emphysema, unspecified emphysema type ([facility] Moderate persistent asthma without complication ([facility]) Primary hypertension ([facility]) Unspecified essential hypertension Type 2 diabetes mellitus with complication, with long-term current use of insulin ([facility]) Class 3 severe obesity with serious comorbidity and body mass index (BMI) of 50.0 to 59.9 in adult, unspecified obesity type ([facility]) Tobacco user Tobacco use disorder Other headache syndrome Malignant neoplasm of cervix uteri, unspecified ([facility]) Other specified disorders of adrenal gland ([facility]) Major depressive disorder, single episode, mild ([facility]) ([facility]) Major depressive disorder, single episode, mild 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 exposed ([facility]) Chronic respiratory failure, unspecified whether with hypoxia or hypercapnia ([facility]) Disorder of adrenal gland, unspecified ([facility]) Non-pressure chronic ulcer of other part of right lower leg limited to breakdown of skin ([facility]) Non-recurrent acute suppurative otitis media of left ear without spontaneous rupture of tympanic membrane Primary hypertension ([facility])- Primary Unspecified essential hypertension Insomnia Insomnia, unspecified Type 2 diabetes mellitus with complication, with long-term current use of insulin ([facility]) Non-seasonal allergic rhinitis, unspecified trigger Type 2 diabetes mellitus with unspecified complications ([facility]) Anxiety and depression ([facility]) Gastro-esophageal reflux disease without esophagitis Edema, unspecified Edema Diabetic polyneuropathy associated with type 2 diabetes mellitus ([facility]) Chronic obstructive pulmonary disease, unspecified ([facility]) Pulmonary emphysema, unspecified emphysema type ([facility]) Bilateral lower extremity edema Tobacco user Tobacco use disorder Hyperpigmentation of skin Other dyschromia Type 2 diabetes mellitus with hyperglycemia, with long-term current use of insulin ([facility])- Primary Encounter for dietary consultation Vitamin D deficiency Primary hypertension ([facility]) Unspecified essential hypertension Insulin long-term use ([facility]) Encounter for long-term (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 Hyperlipemia, mixed ([facility]) Mixed hyperlipidemia Microalbuminuria Proteinuria Class 3 severe obesity due to excess calories with serious comorbidity and body mass index (BMI) of 50.0 to 59.9 in adult ([facility]) documented in this encounter [facility]* Diagnosis Hyperlipidemia, unspecified ([facility]) Bilateral lower extremity edema documented in [facility]* Diagnosis Vitamin D deficiency, unspecified documented in this encounter [facility]* Diagnosis Obstructive sleep apnea- Primary Obstructive sleep apnea (adult) (pediatric) Pulmonary emphysema, unspecified emphysema type ([facility]) Primary hypertension ([facility]) Unspecified essential hypertension Type 2 diabetes mellitus with complication, with long-term current use of insulin ([facility]) Anxiety and depression ([facility]) Bilateral lower extremity edema Pulmonary emphysema, unspecified emphysema type ([facility])- Primary Primary hypertension ([facility]) Unspecified essential hypertension Class 3 severe obesity with serious comorbidity and body mass index (BMI) of 50.0 to 59.9 in adult, unspecified obesity type ([facility]) Obstructive sleep apnea Obstructive sleep apnea (adult) (pediatric) Pulmonary hypertension ([facility]) Other chronic pulmonary heart diseases Tobacco user Tobacco use disorder Cardiomegaly Primary hypertension ([facility])- Primary Unspecified essential hypertension Gastroesophageal reflux disease, unspecified whether esophagitis present Type 2 diabetes mellitus with complication, with long-term current use of insulin ([facility]) Mixed hyperlipidemia ([facility]) Mixed hyperlipidemia Tobacco user Tobacco use disorder Encounter for screening mammogram for malignant neoplasm of breast Chronic obstructive pulmonary disease, unspecified ([facility]) Other specified chronic obstructive pulmonary disease ([facility]) Anxiety and depression ([facility]) Edema, unspecified Edema Hyperlipidemia, unspecified ([facility]) Diabetic polyneuropathy associated with type 2 diabetes mellitus ([facility]) Gout, unspecified cause, unspecified chronicity, unspecified site Non-seasonal allergic rhinitis, unspecified trigger Bilateral lower extremity edema COPD exacerbation ([facility]) Obstructive chronic bronchitis with exacerbation Pulmonary emphysema, unspecified emphysema type ([facility]) Venous insufficiency Unspecified venous (peripheral) insufficiency Candidiasis of breast COPD exacerbation ([facility])- Primary Obstructive chronic bronchitis with exacerbation Pulmonary hypertension ([facility]) Other chronic pulmonary heart diseases Class 3 severe obesity with serious comorbidity and body mass index (BMI) of 50.0 to 59.9 in adult, unspecified obesity type ([facility]) Encounter for subsequent annual wellness visit (AWV) in Medicare patient- Primary Type 2 diabetes mellitus with unspecified complications ([facility]) Pulmonary emphysema, unspecified emphysema type ([facility]) Moderate persistent asthma without complication ([facility]) Primary hypertension ([facility]) Unspecified essential hypertension Type 2 diabetes mellitus with complication, with long-term current use of insulin (CMS/[facility]) Class 3 severe obesity with serious comorbidity and body mass index (BMI) of 50.0 to 59.9 in adult, unspecified obesity type (CMS/HCC) Tobacco user Tobacco use disorder Other headache syndrome Malignant neoplasm of cervix uteri, unspecified (CMS/[facility]) Other specified disorders of adrenal gland (CMS/HCC) Major depressive disorder, single episode, mild (HCC) (CMS/[facility]) Major depressive disorder, single episode, mild 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 exposed (CMS/[facility]) Chronic respiratory failure, unspecified whether with hypoxia or hypercapnia (CMS/[facility]) Disorder of adrenal gland, unspecified (CMS/[facility]) Non-pressure chronic ulcer of other part of right lower leg limited to breakdown of skin (CMS/[facility]) Non-recurrent acute suppurative otitis media of left ear without spontaneous rupture of tympanic membrane Primary hypertension (CMS/[facility])- Primary Unspecified essential hypertension Insomnia Insomnia, unspecified Type 2 diabetes mellitus with complication, with long-term current use of insulin (CMS/[facility]) Non-seasonal allergic rhinitis, unspecified trigger Type 2 diabetes mellitus with unspecified complications (CMS/[facility]) Anxiety and depression (CMS/[facility]) Gastro-esophageal reflux disease without esophagitis Edema, unspecified Edema Diabetic polyneuropathy associated with type 2 diabetes mellitus ([facility]) Chronic obstructive pulmonary disease, unspecified (CMS/[facility]) Pulmonary emphysema, unspecified emphysema type (CMS/HCC) Bilateral lower extremity edema Tobacco user Tobacco use disorder Hyperpigmentation of skin Other dyschromia Bilateral lower extremity edema documented in this encounter [facility] HealthcareEvaluation note* Diagnosis Obstructive sleep apnea- Primary Obstructive sleep apnea (adult) (pediatric) Pulmonary emphysema, unspecified emphysema type (CMS/HCC) Primary hypertension (CMS/HCC) Unspecified essential hypertension Type 2 diabetes mellitus with complication, with long-term current use of insulin (CMS/[facility]) Anxiety and depression (CMS/[facility]) Bilateral lower extremity edema Pulmonary emphysema, unspecified [...] in adult, unspecified obesity type ([facility]) Encounter for subsequent annual wellness visit (AWV) in Medicare patient- Primary Type 2 diabetes mellitus with unspecified complications (CMS/HCC) Pulmonary emphysema, unspecified emphysema type (CMS/HCC) Moderate persistent asthma without complication (CMS/HCC) Primary hypertension (CMS/[facility]) Unspecified essential hypertension Type 2 diabetes mellitus with complication, with long-term current use of insulin (CMS/[facility]) Class 3 severe obesity with serious comorbidity [...] of tympanic membrane Primary hypertension ([facility])- Primary Unspecified essential hypertension Insomnia Insomnia, unspecified Type 2 diabetes mellitus with complication, with long-term current use of insulin ([facility]) Non-seasonal allergic rhinitis, unspecified trigger Type 2 diabetes mellitus with unspecified complications ([facility]) Anxiety and depression ([facility]) Gastro-esophageal reflux disease without esophagitis Edema, unspecified Edema Diabetic polyneuropathy associated with type 2 diabetes mellitus ([facility]) Chronic obstructive pulmonary disease, unspecified ([facility]) Pulmonary emphysema, unspecified emphysema type ([facility]) Bilateral lower extremity edema Tobacco user Tobacco use disorder Hyperpigmentation of skin Other dyschromia Primary hypertension ([facility])- Primary Unspecified essential hypertension Diabetic polyneuropathy associated with type 2 diabetes mellitus ([facility]) Pulmonary emphysema, unspecified emphysema type ([facility]) Critical limb ischemia of right lower extremity ([facility]) PAD (peripheral artery disease) ([facility]) Unspecified peripheral vascular disease Gastroesophageal reflux disease, unspecified whether esophagitis present Bilateral lower extremity edema Venous ulcer of right leg ([facility]) Type 2 diabetes mellitus with complication, with long-term current use of insulin ([facility]) Tobacco user Tobacco use disorder Encounter for smoking cessation counseling Kidney stone Calculus of kidney Adrenal mass 1 cm to 4 cm in diameter ([facility]) Radiculopathy, lumbar region Thoracic or lumbosacral neuritis or radiculitis, unspecified Non-seasonal allergic rhinitis, unspecified trigger Type 2 diabetes mellitus with unspecified complications ([facility]) documented in this encounter [facility] HealthcareEvaluation note* Diagnosis Obstructive sleep apnea- Primary Obstructive sleep apnea (adult) (pediatric) Pulmonary emphysema, unspecified emphysema type ([facility]/HCC) Primary hypertension ([facility]) Unspecified essential hypertension Type 2 diabetes mellitus with complication, with long-term current use of insulin ([facility]) Anxiety and depression ([facility]) Bilateral lower extremity edema Pulmonary emphysema, unspecified emphysema type ([facility]/HCC)- Primary Primary hypertension ([facility]) Unspecified essential hypertension Class 3 severe obesity with serious comorbidity and body mass index (BMI) of 50.0 to 59.9 in adult, unspecified obesity type ([facility]) Obstructive sleep apnea Obstructive sleep apnea (adult) [...] in adult, unspecified obesity type ([facility]) Encounter for subsequent annual wellness visit (AWV) in Medicare patient- Primary Type 2 diabetes mellitus with unspecified complications (CMS/HCC) Pulmonary emphysema, unspecified emphysema type (CMS/HCC) Moderate persistent asthma without complication (CMS/HCC) Primary hypertension (CMS/HCC) Unspecified essential hypertension Type 2 diabetes mellitus with complication, with long-term current use of insulin (CMS/[facility]) Class 3 severe obesity with serious comorbidity [...] lower leg limited to breakdown of skin ([facility]) Non-recurrent acute suppurative otitis media of left ear without spontaneous rupture of tympanic membrane Primary hypertension ([facility])- Primary Unspecified essential hypertension Insomnia Insomnia, unspecified Type 2 diabetes mellitus with complication, with long-term current use of insulin ([facility]) Non-seasonal allergic rhinitis, unspecified trigger Type 2 diabetes mellitus with unspecified complications ([facility]) Anxiety and depression ([facility]) Gastro-esophageal reflux disease without esophagitis Edema, unspecified Edema Diabetic polyneuropathy associated with type 2 diabetes mellitus ([facility]) Chronic obstructive pulmonary disease, unspecified (CMS/[facility]) Pulmonary emphysema, unspecified emphysema type (CMS/[facility]) Bilateral lower extremity edema Tobacco user Tobacco use disorder Hyperpigmentation of skin Other dyschromia Primary hypertension ([facility])- Primary Unspecified essential hypertension Diabetic polyneuropathy associated with type 2 diabetes mellitus ([facility]) Pulmonary emphysema, unspecified emphysema type ([facility]) Critical limb ischemia of right lower extremity ([facility]) PAD (peripheral artery disease) ([facility]) Unspecified peripheral vascular disease Gastroesophageal reflux disease, unspecified whether esophagitis present Bilateral lower extremity edema Venous ulcer of right leg ([facility]) Type 2 diabetes mellitus with complication, with long-term current use of insulin ([facility]) Tobacco user Tobacco use disorder Encounter for smoking cessation counseling Kidney stone Calculus of kidney Adrenal mass 1 cm to 4 cm in diameter ([facility]) Radiculopathy, lumbar region Thoracic or lumbosacral neuritis or radiculitis, unspecified Non-seasonal allergic rhinitis, unspecified trigger Type 2 diabetes mellitus with unspecified complications ([facility]) Anxiety and depression ([facility])- Primary Morbid (severe) obesity due to excess calories ([facility]) Body mass index (BMI) 50.0-59.9, adult ([facility]) Malignant neoplasm of cervix uteri, unspecified (CMS/[facility]) Diabetic polyneuropathy associated with type 2 diabetes mellitus (CMS/[facility]) Chronic diastolic heart failure ([facility]) Chronic diastolic heart failure Primary hypertension ([facility]) Unspecified essential hypertension 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 (CMS/[facility]) Gastroesophageal reflux disease, unspecified whether esophagitis present Bilateral lower extremity edema Type 2 diabetes mellitus with complication, with long-term current use of insulin ([facility]) Tobacco user Tobacco use disorder Mixed hyperlipidemia ([facility]) Mixed hyperlipidemia Gout, unspecified cause, unspecified chronicity, unspecified site Vitamin deficiency Unspecified vitamin deficiency Gastro-esophageal reflux disease without esophagitis Edema, unspecified Edema Hyperlipidemia, unspecified ([facility]) Encounter for smoking cessation counseling Venous ulcer of right leg ([facility]) Antibiotic-induced yeast infection documented in this encounter [facility] HealthcareEvaluation note* Diagnosis Obstructive sleep apnea- Primary Obstructive sleep apnea (adult) (pediatric) Pulmonary emphysema, unspecified emphysema type ([facility]) Primary hypertension ([facility]) Unspecified essential hypertension Type 2 diabetes mellitus with complication, with long-term current use of insulin ([facility]) Anxiety and depression ([facility]) Bilateral lower extremity edema Pulmonary emphysema, unspecified emphysema type ([facility])- Primary Primary hypertension ([facility]) Unspecified essential hypertension Class 3 severe obesity with serious comorbidity and body mass index (BMI) of 50.0 to 59.9 in adult, unspecified obesity type Obstructive sleep apnea Obstructive sleep apnea (adult) (pediatric) Pulmonary hypertension ([facility]) Other chronic pulmonary heart diseases Tobacco user Tobacco use disorder Cardiomegaly Primary hypertension ([facility])- Primary Unspecified essential hypertension Gastroesophageal reflux disease, unspecified whether esophagitis present Type 2 diabetes mellitus with complication, with long-term current use of insulin ([facility]) Mixed hyperlipidemia ([facility]) Mixed hyperlipidemia Tobacco user Tobacco use disorder Encounter for screening mammogram for malignant neoplasm of breast Chronic obstructive pulmonary disease, unspecified Other specified chronic obstructive pulmonary disease Anxiety and depression ([facility]) Edema, unspecified Edema Hyperlipidemia, unspecified ([facility]) Diabetic polyneuropathy associated with type 2 diabetes mellitus ([facility]) Gout, unspecified cause, unspecified chronicity, unspecified site Non-seasonal allergic rhinitis, unspecified trigger Bilateral lower extremity edema COPD exacerbation ([facility]) Obstructive chronic bronchitis with exacerbation Pulmonary emphysema, unspecified emphysema type ([facility]) Venous insufficiency Unspecified venous (peripheral) insufficiency Candidiasis of breast COPD exacerbation ([facility])- Primary Obstructive chronic bronchitis with exacerbation Pulmonary hypertension ([facility]) Other chronic pulmonary heart diseases Class 3 severe obesity with serious comorbidity and body mass index (BMI) of 50.0 to 59.9 in adult, unspecified obesity type Encounter for subsequent annual wellness visit (AWV) in Medicare patient- Primary Type 2 diabetes mellitus with unspecified complications Pulmonary emphysema, unspecified emphysema type ([facility]) Moderate persistent asthma without complication ([facility]) Primary hypertension ([facility]) Unspecified essential hypertension Type 2 diabetes mellitus with complication, with long-term current use of insulin ([facility]) Class 3 severe obesity with serious comorbidity and body mass index (BMI) of 50.0 to 59.9 in adult, unspecified obesity type Tobacco user Tobacco use disorder Other headache syndrome Malignant neoplasm of cervix uteri, unspecified Other specified disorders of adrenal gland Major depressive disorder, single episode, mild (HCC) ([facility]) Major depressive disorder, single episode, mild 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 exposed Chronic respiratory failure, unspecified whether with hypoxia or hypercapnia Disorder of adrenal gland, unspecified Non-pressure chronic ulcer of other part of right lower leg limited to breakdown of skin ([facility]) Non-recurrent acute suppurative otitis media of left ear without spontaneous rupture of tympanic membrane Primary hypertension ([facility] [place])- Primary Unspecified essential hypertension Insomnia Insomnia, unspecified Type 2 diabetes mellitus with complication, with long-term current use of insulin ([facility] [place]) Non-seasonal allergic rhinitis, unspecified trigger Type 2 diabetes mellitus with unspecified complications Anxiety and depression ([facility]) Gastro-esophageal reflux disease without esophagitis Edema, unspecified Edema Diabetic polyneuropathy associated with type 2 diabetes mellitus ([facility] [place]) Chronic obstructive pulmonary disease, unspecified Pulmonary emphysema, unspecified emphysema type (CMS/HCC) Bilateral lower extremity edema Tobacco user Tobacco use disorder Hyperpigmentation of skin Other dyschromia Primary hypertension ([facility])- Primary Unspecified essential hypertension Diabetic polyneuropathy associated with type 2 diabetes mellitus ([facility]) Pulmonary emphysema, unspecified emphysema type ([facility]/HCC) Critical limb ischemia of right lower extremity ([facility]) PAD (peripheral artery disease) ([facility]) Unspecified peripheral vascular disease Gastroesophageal reflux disease, unspecified whether esophagitis present Bilateral lower extremity edema Venous ulcer of right leg ([facility]) Type 2 diabetes mellitus with complication, with long-term current use of insulin ([facility]) Tobacco user Tobacco use disorder Encounter for smoking cessation counseling Kidney stone Calculus of kidney Adrenal mass 1 cm to 4 cm in diameter ([facility] [place]) Radiculopathy, lumbar region Thoracic or lumbosacral neuritis or radiculitis, unspecified Non-seasonal allergic rhinitis, unspecified trigger Type 2 diabetes mellitus with unspecified complications Anxiety and depression ([facility])- Primary Morbid (severe) obesity due to excess calories ([facility]) Body mass index (BMI) 50.0-59.9, [place] Malignant neoplasm of cervix uteri, unspecified Diabetic polyneuropathy associated with type 2 diabetes mellitus ([facility]) Chronic diastolic heart failure ([facility] Chronic diastolic heart failure Primary hypertension ([facility]) Unspecified essential hypertension 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 Gastroesophageal reflux disease, unspecified whether esophagitis present Bilateral lower extremity edema Type 2 diabetes mellitus with complication, with long-term current use of insulin ([facility] Tobacco user Tobacco use disorder Mixed hyperlipidemia ([facility]) Mixed hyperlipidemia Gout, unspecified cause, unspecified chronicity, unspecified site Vitamin deficiency Unspecified vitamin deficiency Gastro-esophageal reflux disease without esophagitis Edema, unspecified Edema Hyperlipidemia, unspecified ([facility] Encounter for smoking cessation counseling Venous ulcer of right leg ([facility] Antibiotic-induced yeast infection Type 2 diabetes mellitus with hyperglycemia, with long-term current use of insulin ([facility])- Primary Encounter for dietary consultation Vitamin D deficiency Primary hypertension ([facility]) Unspecified essential hypertension Insulin long-term use ([facility]) Encounter for long-term (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 Hyperlipemia, mixed ([facility]) Mixed hyperlipidemia Microalbuminuria Proteinuria Class 3 severe obesity due to excess calories with serious comorbidity and body mass index (BMI) of 50.0 to 59.9 in adult documented in this encounter [facility] HealthcareEvaluation note* Diagnosis Obstructive sleep apnea- Primary Obstructive sleep apnea (adult) (pediatric) Pulmonary emphysema, unspecified emphysema type ([facility]) Primary hypertension ([facility]) Unspecified essential hypertension Type 2 diabetes mellitus with complication, with long-term current use of insulin ([facility] Anxiety and depression ([facility] Bilateral lower extremity edema Pulmonary emphysema, unspecified emphysema type ([facility])- Primary Primary hypertension ([facility] [facility]) Unspecified essential hypertension Class 3 severe obesity with serious comorbidity and body mass index (BMI) of 50.0 to 59.9 in adult, unspecified obesity type Obstructive sleep apnea Obstructive sleep apnea (adult) (pediatric) Pulmonary hypertension ([facility]/HCC) Other chronic pulmonary heart diseases Tobacco user Tobacco use disorder Cardiomegaly Primary hypertension ([facility]/HCC)- Primary Unspecified essential hypertension Gastroesophageal reflux disease, unspecified whether esophagitis present Type 2 diabetes mellitus with complication, with long-term current use of insulin (CMS/[facility]) Mixed hyperlipidemia ([facility]) Mixed hyperlipidemia Tobacco user Tobacco use disorder Encounter for screening mammogram for malignant neoplasm of breast Chronic obstructive pulmonary disease, unspecified Other specified chronic obstructive pulmonary disease Anxiety and depression ([facility]) Edema, unspecified Edema Hyperlipidemia, unspecified ([facility]) Diabetic polyneuropathy associated with type 2 diabetes mellitus (CMS/[facility]) Gout, unspecified cause, unspecified chronicity, unspecified site Non-seasonal allergic rhinitis, unspecified trigger Bilateral lower extremity edema COPD exacerbation ([facility]) Obstructive chronic bronchitis with exacerbation Pulmonary emphysema, unspecified emphysema type ([facility]) Venous insufficiency Unspecified venous (peripheral) insufficiency Candidiasis of breast COPD exacerbation ([facility] - [place] Primary Obstructive chronic bronchitis with exacerbation Pulmonary hypertension ([facility] [place]) Other chronic pulmonary heart diseases Class 3 severe obesity with serious comorbidity and body mass index (BMI) of 50.0 to 59.9 in adult, unspecified obesity type Encounter for subsequent annual wellness visit (AWV) in Medicare patient- Primary Type 2 diabetes mellitus with unspecified complications Pulmonary emphysema, unspecified emphysema type ([facility] [place]) Moderate persistent asthma without complication ([facility] [place]) Primary hypertension ([facility] [place]) Unspecified essential hypertension Type 2 diabetes mellitus with complication, with long-term current use of insulin ([facility] [place]) Class 3 severe obesity with serious comorbidity and body mass index (BMI) of 50.0 to 59.9 in adult, unspecified obesity type Tobacco user Tobacco use disorder Other headache syndrome Malignant neoplasm of cervix uteri, unspecified Other specified disorders of adrenal gland Major depressive disorder, single episode, mild (HCC) ([facility] [place]) Major depressive disorder, single episode, mild 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 exposed Chronic respiratory failure, unspecified whether with hypoxia or hypercapnia Disorder of adrenal gland, unspecified Non-pressure chronic ulcer of other part of right lower leg limited to breakdown of skin ([facility] [place]) Non-recurrent acute suppurative otitis media of left ear without spontaneous rupture of tympanic membrane Primary hypertension ([facility] [place])- Primary Unspecified essential hypertension Insomnia Insomnia, unspecified Type 2 diabetes mellitus with complication, with long-term current use of insulin ([facility] [place]) Non-seasonal allergic rhinitis, unspecified trigger Type 2 diabetes mellitus with unspecified complications Anxiety and depression ([facility] [place]) Gastro-esophageal reflux disease without esophagitis Edema, unspecified Edema Diabetic polyneuropathy associated with type 2 diabetes mellitus ([facility] [place]) Chronic obstructive pulmonary disease, unspecified Pulmonary emphysema, unspecified emphysema type ([facility] [place]) Bilateral lower extremity edema Tobacco user Tobacco use disorder Hyperpigmentation of skin Other dyschromia Primary hypertension ([facility] [place])- Primary Unspecified essential hypertension Diabetic polyneuropathy associated with type 2 diabetes mellitus ([facility] [place]) Pulmonary emphysema, unspecified emphysema type ([facility] [place]) Critical limb ischemia of right lower extremity ([facility] [place]) PAD (peripheral artery disease) ([facility] [place]) Unspecified peripheral vascular disease Gastroesophageal reflux disease, unspecified whether esophagitis present Bilateral lower extremity edema Venous ulcer of right leg ([facility] [place]) Type 2 diabetes mellitus with complication, with long-term current use of insulin ([facility] [place]) Tobacco user Tobacco use disorder Encounter for smoking cessation counseling Kidney stone Calculus of kidney Adrenal mass 1 cm to 4 cm in diameter ([facility] [place]) Radiculopathy, lumbar region Thoracic or lumbosacral neuritis or radiculitis, unspecified Non-seasonal allergic rhinitis, unspecified trigger Type 2 diabetes mellitus with unspecified complications Anxiety and depression ([facility] [place])- Primary Morbid (severe) obesity due to excess calories ([facility] [place]) Body mass index (BMI) 50.0-59.9, adult ([facility] [place]) Malignant neoplasm of cervix uteri, unspecified Diabetic polyneuropathy associated with type 2 diabetes mellitus ([facility] [place]) Chronic diastolic heart failure ([facility] [place]) Chronic diastolic heart failure Primary hypertension ([facility] [place]) Unspecified essential hypertension 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 Gastroesophageal reflux disease, unspecified whether esophagitis present Bilateral lower extremity edema Type 2 diabetes mellitus with complication, with long-term current use of insulin ([facility] [place]) Tobacco user Tobacco use disorder Mixed hyperlipidemia ([facility] [place]) Mixed hyperlipidemia Gout, unspecified cause, unspecified chronicity, unspecified site Vitamin deficiency Unspecified vitamin deficiency Gastro-esophageal reflux disease without esophagitis Edema, unspecified Edema Hyperlipidemia, unspecified [place] [place] Encounter for smoking cessation counseling Venous ulcer of right leg ([facility] [place]) Antibiotic-induced yeast infection Chronic obstructive pulmonary disease, unspecified documented in this encounter [facility] HealthcareEvaluation note* Diagnosis Obstructive sleep apnea- Primary Obstructive sleep apnea (adult) (pediatric) Pulmonary emphysema, unspecified emphysema type ([facility] [place]) Primary hypertension ([facility] [place]) Unspecified essential hypertension Type 2 diabetes mellitus with complication, with long-term current use of insulin ([facility] [place]) Anxiety and depression ([facility] [place]) Bilateral lower extremity edema Pulmonary emphysema, unspecified emphysema type ([facility] [place])- Primary Primary hypertension ([facility] [place]) Unspecified essential hypertension Class 3 severe obesity with serious comorbidity and body mass index (BMI) of 50.0 to 59.9 in adult, unspecified obesity type Obstructive sleep apnea Obstructive sleep apnea (adult) (pediatric) Pulmonary hypertension ([facility] [place]) Other chronic pulmonary heart diseases Tobacco user Tobacco use disorder Cardiomegaly Primary hypertension ([facility] [place])- Primary Unspecified essential hypertension Gastroesophageal reflux disease, unspecified whether esophagitis present Type 2 diabetes mellitus with complication, with long-term current use of insulin ([facility] [place]) Mixed hyperlipidemia ([facility] [place]) Mixed hyperlipidemia Tobacco user Tobacco use disorder Encounter for screening mammogram for malignant neoplasm of breast Chronic obstructive pulmonary disease, unspecified Other specified chronic obstructive pulmonary disease Anxiety and depression ([facility] [place]) Edema, unspecified Edema Hyperlipidemia, unspecified ([facility] [place]) Diabetic polyneuropathy associated with type 2 diabetes mellitus ([facility] [place]) Gout, unspecified cause, unspecified chronicity, unspecified site Non-seasonal allergic rhinitis, unspecified trigger Bilateral lower extremity edema COPD exacerbation ([facility] [place]) Obstructive chronic bronchitis with exacerbation Pulmonary emphysema, unspecified emphysema type ([facility] [place]) Venous insufficiency Unspecified venous (peripheral) insufficiency Candidiasis of breast COPD exacerbation ([facility] [place])- Primary Obstructive chronic bronchitis with exacerbation Pulmonary hypertension ([facility] [place]) Other chronic pulmonary heart diseases Class 3 severe obesity with serious comorbidity and body mass index (BMI) of 50.0 to 59.9 in adult, unspecified obesity type Encounter for subsequent annual wellness visit (AWV) in Medicare patient- Primary Type 2 diabetes mellitus with unspecified complications Pulmonary emphysema, unspecified emphysema type ([facility] [place] Moderate persistent asthma without complication ([facility] [place]) Primary hypertension ([facility] [place]) Unspecified essential hypertension Type 2 diabetes mellitus with complication, with long-term current use of insulin ([facility] [place]) Class 3 severe obesity with serious comorbidity and body mass index (BMI) of 50.0 to 59.9 in adult, unspecified obesity type Tobacco user Tobacco use disorder Other headache syndrome Malignant neoplasm of cervix uteri, unspecified Other specified disorders of adrenal gland Major depressive disorder, single episode, mild (HCC) ([facility] [place]) Major depressive disorder, single episode, mild 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 exposed Chronic respiratory failure, unspecified whether with hypoxia or hypercapnia Disorder of adrenal gland, unspecified Non-pressure chronic ulcer of other part of right lower leg limited to breakdown of skin ([facility] [place]) Non-recurrent acute suppurative otitis media of left ear without spontaneous rupture of tympanic membrane Primary hypertension ([facility] [place])- Primary Unspecified essential hypertension Insomnia Insomnia, unspecified Type 2 diabetes mellitus with complication, with long-term current use of insulin ([facility] [place]) Non-seasonal allergic rhinitis, unspecified trigger Type 2 diabetes mellitus with unspecified complications Anxiety and depression ([facility] [place]) Gastro-esophageal reflux disease without esophagitis Edema, unspecified Edema Diabetic polyneuropathy associated with type 2 diabetes mellitus ([facility] [place]) Chronic obstructive pulmonary disease, unspecified Pulmonary emphysema, unspecified emphysema type ([facility] [place]) Bilateral lower extremity edema Tobacco user Tobacco use disorder Hyperpigmentation of skin Other dyschromia Primary hypertension ([facility] [place])- Primary Unspecified essential hypertension Diabetic polyneuropathy associated with type 2 diabetes mellitus ([facility] [place]) Pulmonary emphysema, unspecified emphysema type ([facility] [place]) Critical limb ischemia of right lower extremity ([facility] [place]) PAD (peripheral artery disease) ([facility] [place]) Unspecified peripheral vascular disease Gastroesophageal reflux disease, unspecified whether esophagitis present Bilateral lower extremity edema Venous ulcer of right leg ([facility] [place]) Type 2 diabetes mellitus with complication, with long-term current use of insulin ([facility] [place]) Tobacco user Tobacco use disorder Encounter for smoking cessation counseling Kidney stone Calculus of kidney Adrenal mass 1 cm to 4 cm in diameter ([facility] [place]) Radiculopathy, lumbar region Thoracic or lumbosacral neuritis or radiculitis, unspecified Non-seasonal allergic rhinitis, unspecified trigger Type 2 diabetes mellitus with unspecified complications Anxiety and depression ([facility] [place])- Primary Morbid (severe) obesity due to excess calories ([facility] [place]) Body mass index (BMI) 50.0-59.9, adult ([facility] [place]) Malignant neoplasm of cervix uteri, unspecified Diabetic polyneuropathy associated with type 2 diabetes mellitus ([facility] [place]) Chronic diastolic heart failure ([facility] [place]) Chronic diastolic heart failure Primary hypertension ([facility] [place]) Unspecified essential hypertension 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 Gastroesophageal reflux disease, unspecified whether esophagitis present Bilateral lower extremity edema Type 2 diabetes mellitus with complication, with long-term current use of insulin ([facility] [place]) Tobacco user Tobacco use disorder Mixed hyperlipidemia ([facility] [place]) Mixed hyperlipidemia Gout, unspecified cause, unspecified chronicity, unspecified site Vitamin deficiency Unspecified vitamin deficiency Gastro-esophageal reflux disease without esophagitis Edema, unspecified Edema Hyperlipidemia, unspecified ([facility] [place]) Encounter for smoking cessation counseling Venous ulcer of right leg ([facility] [place]) Antibiotic-induced yeast infection Primary hypertension ([facility] [place])- Primary Unspecified essential hypertension Diabetic polyneuropathy associated with type 2 diabetes mellitus ([facility] [place]) Chronic diastolic heart failure ([facility] [place]) Chronic diastolic heart failure Bilateral lower extremity edema Morbid (severe) obesity due to excess calories ([facility] [place]) Type 2 diabetes mellitus with complication, with long-term current use of insulin ([facility] [place]) Anxiety and depression ([facility] [place]) Cigarette nicotine dependence without complication Encounter for screening mammogram for malignant neoplasm of breast Insomnia Insomnia, unspecified Non-seasonal allergic rhinitis, unspecified trigger Type 2 diabetes mellitus with unspecified complications Vitamin D deficiency, unspecified Gastro-esophageal reflux disease without esophagitis PAD (peripheral artery disease) ([facility] [place]) Unspecified peripheral vascular disease Gastroesophageal reflux disease, unspecified whether esophagitis present Venous ulcer of right leg ([facility] [place]) documented in this encounter [facility] HealthcareEvaluation note* Diagnosis Obstructive sleep apnea- Primary Obstructive sleep apnea (adult) (pediatric) Pulmonary emphysema, unspecified emphysema type (HCC) Primary hypertension Unspecified essential hypertension Type 2 diabetes mellitus with complication, with long-term current use of insulin ([facility] [place]) Anxiety and depression Bilateral lower extremity edema Pulmonary emphysema, unspecified emphysema type (HCC)- Primary Primary hypertension Unspecified essential hypertension Class 3 severe obesity with serious comorbidity and body mass index (BMI) of 50.0 to 59.9 in adult, unspecified obesity type ([facility] [place]) Obstructive sleep apnea Obstructive sleep apnea (adult) [...] in adult, unspecified obesity type ([facility] [place]) Encounter for subsequent annual wellness visit (AWV) in Medicare patient- Primary Type 2 diabetes mellitus with unspecified complications (HCC) Pulmonary emphysema, unspecified emphysema type (HCC) Moderate persistent asthma without complication (HCC) Primary hypertension Unspecified essential hypertension Type 2 diabetes mellitus with complication, with long-term current use of insulin ([facility] [place]) Class 3 severe obesity with serious comorbidity and body mass index (BMI) of 50.0 to 59.9 in adult, unspecified obesity type ([facility] [place]) Tobacco user Tobacco use disorder Other headache [...] ischemia of right lower extremity ([facility] [place]) PAD (peripheral artery disease) Unspecified peripheral vascular disease Gastroesophageal reflux disease, unspecified whether esophagitis present Bilateral lower extremity edema Venous ulcer of right leg (HCC) Type 2 diabetes mellitus with complication, with long-term current use of insulin ([facility] [place]) Tobacco user Tobacco use disorder Encounter for smoking cessation counseling Kidney stone Calculus of kidney Adrenal mass 1 cm to 4 cm in diameter ([facility] [place]) Radiculopathy, lumbar region Thoracic or lumbosacral neuritis or radiculitis, unspecified Non-seasonal allergic rhinitis, unspecified trigger Type 2 diabetes mellitus with unspecified complications ([facility] [place]) Anxiety and depression- Primary Morbid (severe) obesity due to excess calories ([facility] [place]) Body mass index (BMI) 50.0-59.9, adult ([facility] [place] Malignant neoplasm of cervix uteri, unspecified ([facility] [place]) Diabetic polyneuropathy associated with type 2 diabetes mellitus ([facility] [place]) Chronic diastolic heart failure (HCC) Chronic diastolic heart failure Primary hypertension Unspecified essential hypertension 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 ([facility] [place]) Gastroesophageal reflux disease, unspecified whether esophagitis present Bilateral lower extremity edema Type 2 diabetes mellitus with complication, with long-term current use of insulin ([facility] [place]) Tobacco user Tobacco use disorder Mixed hyperlipidemia Mixed hyperlipidemia Gout, unspecified cause, unspecified chronicity, unspecified site Vitamin deficiency Unspecified vitamin deficiency Gastro-esophageal reflux disease without esophagitis Edema, unspecified Edema Hyperlipidemia, unspecified Encounter for smoking cessation counseling Venous ulcer of right leg ([facility] [place]) Antibiotic-induced yeast infection Primary hypertension- Primary Unspecified essential hypertension Diabetic polyneuropathy associated with type 2 diabetes mellitus (HCC) Chronic diastolic heart failure (HCC) Chronic diastolic heart failure Bilateral lower extremity edema Morbid (severe) obesity due to excess calories ([facility] [place]) Type 2 diabetes mellitus with complication, with long-term current use of insulin ([facility] [place]) Anxiety and depression Cigarette nicotine dependence without complication Encounter for screening mammogram for malignant neoplasm of breast Insomnia Insomnia, unspecified Non-seasonal allergic rhinitis, unspecified trigger Type 2 diabetes mellitus with unspecified complications ([facility] [place]) Vitamin D deficiency, unspecified Gastro-esophageal reflux disease without esophagitis PAD (peripheral artery disease) Unspecified peripheral vascular disease Gastroesophageal reflux disease, unspecified whether esophagitis present Venous ulcer of right leg ([facility] [place]) Cellulitis of left lower extremity- Primary COPD exacerbation (HCC) Obstructive chronic bronchitis with exacerbation Primary hypertension Unspecified essential hypertension Pulmonary hypertension (HCC) Other chronic pulmonary heart diseases Morbid (severe) obesity due to excess calories ([facility] [place]) Type 2 diabetes mellitus with complication, with long-term current use of insulin ([facility] [place]) Anxiety and depression Fever, unspecified fever cause Hyperlipidemia, unspecified Tobacco user Tobacco use disorder Encounter for smoking cessation counseling documented in this encounter [facility] HealthcareEvaluation note* Diagnosis Obstructive sleep apnea- Primary Obstructive sleep apnea (adult) (pediatric) Pulmonary emphysema, unspecified emphysema type ([facility] [place]) Primary hypertension ([facility] [place]) Unspecified essential hypertension Type 2 diabetes mellitus with complication, with long-term current use of insulin ([facility] [place]) Anxiety and depression ([facility] [place]) Bilateral lower extremity edema Pulmonary emphysema, unspecified emphysema type ([facility] [place])- Primary Primary hypertension ([facility] [place]) Unspecified essential hypertension Class 3 severe obesity with serious comorbidity and body mass index (BMI) of 50.0 to 59.9 in adult, unspecified obesity type Obstructive sleep apnea Obstructive sleep apnea (adult) (pediatric) Pulmonary hypertension ([facility] [place]) Other chronic pulmonary heart diseases Tobacco user Tobacco use disorder Cardiomegaly Primary hypertension ([facility] [place])- Primary Unspecified essential hypertension Gastroesophageal reflux disease, unspecified whether esophagitis present Type 2 diabetes mellitus with complication, with long-term current use of insulin ([facility] [place]) Mixed hyperlipidemia ([facility] [place]) Mixed hyperlipidemia Tobacco user Tobacco use disorder Encounter for screening mammogram for malignant neoplasm of breast Chronic obstructive pulmonary disease, unspecified Other specified chronic obstructive pulmonary disease Anxiety and depression ([facility] [place]) Edema, unspecified Edema Hyperlipidemia, unspecified ([facility] [place]) Diabetic polyneuropathy associated with type 2 diabetes mellitus ([facility] [place]) Gout, unspecified cause, unspecified chronicity, unspecified site Non-seasonal allergic rhinitis, unspecified trigger Bilateral lower extremity edema COPD exacerbation ([facility] [place]) Obstructive chronic bronchitis with exacerbation Pulmonary emphysema, unspecified emphysema type ([facility]) Venous insufficiency Unspecified venous (peripheral) insufficiency Candidiasis of breast COPD exacerbation ([facility])- Primary Obstructive chronic bronchitis with exacerbation Pulmonary hypertension ([facility]) Other chronic pulmonary heart diseases Class 3 severe obesity with serious comorbidity and body mass index (BMI) of 50.0 to 59.9 in adult, unspecified obesity type Encounter for subsequent annual wellness visit (AWV) in Medicare patient- Primary Type 2 diabetes mellitus with unspecified complications Pulmonary emphysema, unspecified emphysema type ([facility]) Moderate persistent asthma without complication ([facility]) Primary hypertension ([facility]) Unspecified essential hypertension Type 2 diabetes mellitus with complication, with long-term current use of insulin ([facility]) Class 3 severe obesity with serious comorbidity and body mass index (BMI) of 50.0 to 59.9 in adult, unspecified obesity type Tobacco user Tobacco use disorder Other headache syndrome Malignant neoplasm of cervix uteri, unspecified Other specified disorders of adrenal gland Major depressive disorder, single episode, mild (HCC) ([facility]) Major depressive disorder, single episode, mild 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 exposed Chronic respiratory failure, unspecified whether with hypoxia or hypercapnia Disorder of adrenal gland, unspecified Non-pressure chronic ulcer of other part of right lower leg limited to breakdown of skin ([facility]) Non-recurrent acute suppurative otitis media of left ear without spontaneous rupture of tympanic membrane Primary hypertension ([facility])- Primary Unspecified essential hypertension Insomnia Insomnia, unspecified Type 2 diabetes mellitus with complication, with long-term current use of insulin ([facility]) Non-seasonal allergic rhinitis, unspecified trigger Type 2 diabetes mellitus with unspecified complications Anxiety and depression ([facility]) Gastro-esophageal reflux disease without esophagitis Edema, unspecified Edema Diabetic polyneuropathy associated with type 2 diabetes mellitus ([facility]) Chronic obstructive pulmonary disease, unspecified Pulmonary emphysema, unspecified emphysema type (CMS/HCC) Bilateral lower extremity edema Tobacco user Tobacco use disorder Hyperpigmentation of skin Other dyschromia Primary hypertension (CMS/HCC)- Primary Unspecified essential hypertension Diabetic polyneuropathy associated with type 2 diabetes mellitus ([facility]) Pulmonary emphysema, unspecified emphysema type (CMS/HCC) Critical limb ischemia of right lower extremity ([facility]) PAD (peripheral artery disease) ([facility]) Unspecified peripheral vascular disease Gastroesophageal reflux disease, unspecified whether esophagitis present Bilateral lower extremity edema Venous ulcer of right leg ([facility]) Type 2 diabetes mellitus with complication, with long-term current use of insulin ([facility]) Tobacco user Tobacco use disorder Encounter for smoking cessation counseling Kidney stone Calculus of kidney Adrenal mass 1 cm to 4 cm in diameter ([facility]) Radiculopathy, lumbar region Thoracic or lumbosacral neuritis or radiculitis, unspecified Non-seasonal allergic rhinitis, unspecified trigger Type 2 diabetes mellitus with unspecified complications Anxiety and depression ([facility])- Primary Morbid (severe) obesity due to excess calories ([facility]) Body mass index (BMI) 50.0-59.9, adult ([facility]) Malignant neoplasm of cervix uteri, unspecified Diabetic polyneuropathy associated with type 2 diabetes mellitus ([facility]) Chronic diastolic heart failure [place] Chronic diastolic heart failure Primary hypertension ([facility]) Unspecified essential hypertension 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 Gastroesophageal reflux disease, unspecified whether esophagitis present Bilateral lower extremity edema Type 2 diabetes mellitus with complication, with long-term current use of insulin ([facility]) Tobacco user Tobacco use disorder Mixed hyperlipidemia ([facility]) Mixed hyperlipidemia Gout, unspecified cause, unspecified chronicity, unspecified site Vitamin deficiency Unspecified vitamin deficiency Gastro-esophageal reflux disease without esophagitis Edema, unspecified Edema Hyperlipidemia, unspecified ([facility]) Encounter for smoking cessation counseling Venous ulcer of right leg ([facility]) Antibiotic-induced yeast infection Primary hypertension ([facility])- Primary Unspecified essential hypertension Diabetic polyneuropathy associated with type 2 diabetes mellitus ([facility]) Chronic diastolic heart failure ([facility]) Chronic diastolic heart failure Bilateral lower extremity edema Morbid (severe) obesity due to excess calories ([facility]) Type 2 diabetes mellitus with complication, with long-term current use of insulin ([facility]) Anxiety and depression ([facility]) Cigarette nicotine dependence without complication Encounter for screening mammogram for malignant neoplasm of breast Insomnia Insomnia, unspecified Non-seasonal allergic rhinitis, unspecified trigger Type 2 diabetes mellitus with unspecified complications Vitamin D deficiency, unspecified Gastro-esophageal reflux disease without esophagitis PAD (peripheral artery disease) ([facility]) Unspecified peripheral vascular disease Gastroesophageal reflux disease, unspecified whether esophagitis present Venous ulcer of right leg ([facility]) Cellulitis of left lower extremity- Primary COPD exacerbation (CMS/HCC) Obstructive chronic bronchitis with exacerbation Primary hypertension (CMS/HCC) Unspecified essential hypertension Pulmonary hypertension (CMS/HCC) Other chronic pulmonary heart diseases Morbid (severe) obesity due to excess calories (CMS/HCC) Type 2 diabetes mellitus with complication, with long-term current use of insulin (CMS/HCC) Anxiety and depression (CMS/HCC) Fever, unspecified fever cause documented in this encounter [facility] HealthcareEvaluation note* Diagnosis Obstructive sleep apnea- [...] in adult, unspecified obesity type ([facility]) Obstructive sleep apnea Obstructive sleep apnea (adult) [...] in adult, unspecified obesity type ([facility]) Encounter for subsequent annual wellness visit (AWV) in Medicare patient- Primary Type 2 diabetes mellitus with unspecified complications (HCC) Pulmonary emphysema, unspecified emphysema type (HCC) Moderate persistent asthma without complication (HCC) Primary hypertension Unspecified essential hypertension Type 2 diabetes mellitus with complication, with long-term current use of insulin ([facility]) Class 3 severe obesity with serious comorbidity and body mass index (BMI) of 50.0 to 59.9 in adult, unspecified obesity type ([facility] Tobacco user Tobacco use disorder Other headache syndrome Malignant neoplasm of cervix uteri, unspecified ([facility]) Other specified disorders of adrenal gland ([facility]) Major depressive disorder, single episode, mild Major depressive disorder, single episode, mild 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 exposed ([facility]) Chronic respiratory failure, unspecified whether with hypoxia or hypercapnia ([facility]) Disorder of adrenal gland, unspecified ([facility]) Non-pressure chronic ulcer of other part of right lower leg limited to breakdown of skin ([facility]) Non-recurrent acute suppurative otitis media of left ear without spontaneous rupture of tympanic membrane Primary hypertension- Primary Unspecified essential hypertension Insomnia Insomnia, unspecified Type 2 diabetes mellitus with complication, with long-term current use of insulin ([facility]) Non-seasonal allergic rhinitis, unspecified trigger Type 2 diabetes mellitus with unspecified complications ([facility]) Anxiety and depression Gastro-esophageal reflux disease without esophagitis Edema, unspecified Edema Diabetic polyneuropathy associated with type 2 diabetes mellitus ([facility]) Chronic obstructive pulmonary disease, unspecified ([facility]) Pulmonary emphysema, unspecified emphysema type ([facility]) Bilateral lower extremity edema Tobacco user Tobacco use disorder Hyperpigmentation of skin Other dyschromia Primary hypertension- Primary Unspecified essential hypertension Diabetic polyneuropathy associated with type 2 diabetes mellitus ([facility]) Pulmonary emphysema, unspecified emphysema type ([facility]) Critical limb ischemia of right lower extremity ([facility]) PAD (peripheral artery disease) Unspecified peripheral vascular disease Gastroesophageal reflux disease, unspecified whether esophagitis present Bilateral lower extremity edema Venous ulcer of right leg ([facility]) Type 2 diabetes mellitus with complication, with long-term current use of insulin ([facility]) Tobacco user Tobacco use disorder Encounter for smoking cessation counseling Kidney stone Calculus of kidney Adrenal mass 1 cm to 4 cm in diameter ([facility]) Radiculopathy, lumbar region Thoracic or lumbosacral neuritis or radiculitis, unspecified Non-seasonal allergic rhinitis, unspecified trigger Type 2 diabetes mellitus with unspecified complications ([facility]) Anxiety and depression- Primary Morbid (severe) obesity due to excess calories ([facility] Body mass index (BMI) 50.0-59.9, adult ([facility]) Malignant neoplasm of cervix uteri, unspecified (HCC) [...] Morbid (severe) obesity due to excess calories ([facility]) Type 2 diabetes mellitus with complication, with long-term current use of insulin ([facility]) Anxiety and depression Cigarette nicotine dependence without [...] Morbid (severe) obesity due to excess calories ([facility]) Type 2 diabetes mellitus with complication, with [...] mellitus (HCC) Pulmonary emphysema, unspecified emphysema type ([facility]) Moderate persistent asthma without complication (HCC) Insomnia Insomnia, unspecified Non-seasonal allergic rhinitis, unspecified trigger Type 2 diabetes mellitus with unspecified complications (HCC) Anxiety and depression Antibiotic-induced yeast infection Chronic obstructive pulmonary disease, unspecified (HCC) Hyperlipidemia, unspecified Vaginal yeast infection Candidiasis of vulva and vagina Morbid (severe) obesity due to excess calories ([facility]) Type 2 diabetes mellitus with hyperglycemia, with long-term current use of insulin (HCC) documented in this encounter [facility] HealthcareEvaluation note* Diagnosis Obstructive [...] in adult, unspecified obesity type ([facility]) Obstructive sleep apnea Obstructive sleep apnea (adult) [...] in adult, unspecified obesity type ([facility]) Encounter for subsequent annual wellness visit (AWV) in Medicare patient- Primary Type 2 diabetes mellitus with unspecified complications (HCC) Pulmonary emphysema, unspecified emphysema type (HCC) Moderate persistent asthma without complication (HCC) Primary hypertension Unspecified essential hypertension Type 2 diabetes mellitus with complication, with long-term current use of insulin ([facility]) Class 3 severe obesity with serious comorbidity and body mass index (BMI) of 50.0 to 59.9 in adult, unspecified obesity type ([facility] Tobacco user Tobacco use disorder Other headache syndrome Malignant neoplasm of cervix uteri, unspecified ([facility]) Other specified disorders of adrenal gland ([facility]) Major depressive disorder, single episode, mild Major depressive disorder, single episode, mild 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 exposed ([facility]) Chronic respiratory failure, unspecified whether with hypoxia or hypercapnia ([facility]) Disorder of adrenal gland, unspecified ([facility]) Non-pressure chronic ulcer of other part of right lower leg limited to breakdown of skin ([facility]) Non-recurrent acute suppurative otitis media of left ear without spontaneous rupture of tympanic membrane Primary hypertension- Primary Unspecified essential hypertension Insomnia Insomnia, unspecified Type 2 diabetes mellitus with complication, with long-term current use of insulin ([facility]) Non-seasonal allergic rhinitis, unspecified trigger Type 2 diabetes mellitus with unspecified complications ([facility]) Anxiety and depression Gastro-esophageal reflux disease without esophagitis Edema, unspecified Edema Diabetic polyneuropathy associated with type 2 diabetes mellitus ([facility]) Chronic obstructive pulmonary disease, unspecified ([facility]) Pulmonary emphysema, unspecified emphysema type ([facility]) Bilateral lower extremity edema Tobacco user Tobacco use disorder Hyperpigmentation of skin Other dyschromia Primary hypertension- Primary Unspecified essential hypertension Diabetic polyneuropathy associated with type 2 diabetes mellitus ([facility]) Pulmonary emphysema, unspecified emphysema type ([facility]) Critical limb ischemia of right lower extremity ([facility]) PAD (peripheral artery disease) Unspecified peripheral vascular disease Gastroesophageal reflux disease, unspecified whether esophagitis present Bilateral lower extremity edema Venous ulcer of right leg ([facility]) Type 2 diabetes mellitus with complication, with long-term current use of insulin ([facility]) Tobacco user Tobacco use disorder Encounter for smoking cessation counseling Kidney stone Calculus of kidney Adrenal mass 1 cm to 4 cm in diameter ([facility]) Radiculopathy, lumbar region Thoracic or lumbosacral neuritis or radiculitis, unspecified Non-seasonal allergic rhinitis, unspecified trigger Type 2 diabetes mellitus with unspecified complications ([facility]) Anxiety and depression- Primary Morbid (severe) obesity due to excess calories ([facility]) Body mass index (BMI) 50.0-59.9, adult ([facility]) Malignant neoplasm of cervix uteri, unspecified (HCC) [...] Morbid (severe) obesity due to excess calories ([facility]) Type 2 diabetes mellitus with complication, with [...] Morbid (severe) obesity due to excess calories ([facility]) Type 2 diabetes mellitus with complication, with long-term current use of insulin ([facility]) Anxiety and depression Fever, unspecified fever cause [...] Type 2 diabetes mellitus with unspecified complications ([facility]) Anxiety and depression Antibiotic-induced yeast infection Chronic obstructive pulmonary disease, unspecified (HCC) Hyperlipidemia, unspecified Vaginal yeast infection Candidiasis of vulva and vagina Morbid (severe) obesity due to excess calories ([facility]) Encounter for dietary consultation- Primary Type 2 diabetes mellitus with hyperglycemia, with long-term current use of insulin ([facility]) Vitamin D deficiency Primary hypertension Unspecified essential hypertension Insulin long-term use ([facility]) Encounter for long-term (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 Hyperlipemia, mixed Mixed hyperlipidemia Microalbuminuria Proteinuria Class 3 severe obesity due to excess calories with serious comorbidity and body mass index (BMI) of 50.0 to 59.9 in adult ([facility]) documented in this encounter [facility] HealthcareHistory general [...] History sepsis 2010 Hospitalization History SEE ABOVE [employer] Other Hospital course Narrative No data available for this section [facility] progress note No data available for this section [facility] reason for referral (narrative) , Referral to Dr. Cortés Referred by: REGLA PHIPPS, Elbert Joya [facility] Advance Directives No Advanced Directives Records FoundDocuments on File Type Date Recorded Patient Physiotherapy Assistant Expl anation Advance Directives and Living Will Power of Building Construction Foreman Summary Purpose Family History No Family History Records FoundNo Family History Records FoundNo Family History Records FoundNo Family History Records Found No data available for this section No Family History Records FoundNo Family History Records FoundNo Family History Records Found Additional Source Comments INFORMATION SOURCE (unrecogn ized section and content) DATE CREATED AUTHOR 10/30/2019 [facility] DATE CREATED AUTHOR AUTHOR'S ORGANIZ ATION 09/15/2020 [facility] DATE CREATED AUTHOR AUTHOR'S ORGANIZ ATION 12/19/2022 [facility] DATE CREATED AUTHOR AUTHOR'S ORGANIZ ATION 06/03/2024 [facility] DATE CREATED AUTHOR AUTHOR'S ORGANIZ ATION 01/30/2025 [facility] DATE CREATED AUTHOR AUTHOR'S ORGANIZ ATION 02/06/2025 [facility] DATE CREATED AUTHOR AUTHOR'S ORGANIZ ATION 02/28/2025 [facility] Care Team (unrecognized sect ion and content) Director [place] Sales Relationship Specialty Start Date End Date Ty Amin MD PCP - General Family Medicine 01/05/23 Director [place] Sales Relationship Specialty Start Date End Date Ty Amin MD PCP - General Family Medicine 01/05/23 Director [place] Sales Relationship Specialty Start Date End Date Ty Amin MD [address] [place] [phone] PCP - General Family Medicine 09/20/23 Mckayla Blas NP [address] [place] [phone] PCP - [facility] 09/07/23 09/05/90 Mckayla Blas NP [address] [place] [phone] Nurse Practitioner Family Medicine 09/20/23 Director [place] Sales Relationship Specialty Start Date End Date Ty Amin MD [address] [place] [phone] PCP - General Family Medicine 09/20/23 Mckayla Blas NP [address] [place] [phone] PCP - [facility] 09/07/23 09/05/90 Mckayla Blas NP [address] [place] [phone] Nurse Practitioner Family Medicine 09/20/23 Director [place] Sales Relationship Specialty Start Date End Date Ty Amin MD [address] [place] [phone] PCP - General Family Medicine 09/20/23 Mckayla Blas NP [address] [place] [phone] [facility] 09/07/23 09/05/90 Mckayla Blas NP [address] [place] [phone] Nurse Practitioner Family Medicine 09/20/23 Director [place] Sales Relationship Specialty Start Date End Date Ty Amin MD [address] [place] [phone] PCP - General Family Medicine 09/20/23 Mckayla Blas NP [address] [place] [phone] PCP [facility] 09/07/23 09/05/90 Mckayla Blas NP [address] [place] [phone] Nurse Practitioner Family Medicine 09/20/23 Director [place] Sales Relationship Specialty Start Date End Date Ty Amin MD [address] [place] [address] PCP - General Family Medicine 09/20/23 Mckayla Blas NP [address] [place] [address] PCP - [facility] 09/07/23 09/05/90 Mckayla Blas NP [address] [place] [phone] Nurse Practitioner Family Medicine 09/20/23 Director [place] Sales Relationship Specialty Start Date End Date Ty Amin MD [address] [place] [phone] PCP - General Family Medicine 09/20/23 Mckayla Blas NP [address] [place] [phone] PCP - [facility] 09/07/23 09/05/90 Mckayla Blas NP [address] [place] [address] Nurse Practitioner Family Medicine 09/20/23 Director [place] Sales Relationship Specialty Start Date End Date Ty Amin MD [address] [place] [phone] PCP - General Family Medicine 09/20/23 Mckayla Blas NP [address] [place] [phone] PCP - [facility] 09/07/23 09/05/90 Mckayla Blas NP [address] [place] [phone] Nurse Practitioner Family Medicine 09/20/23 Director [place] Sales Relationship Specialty Start Date End Date Ty Amin MD [address] [place] [phone] PCP - General Family Medicine 09/20/23 Mckayla Blas NP [address] [place] [phone] [facility] 09/07/23 09/05/90 Mckayla Blas NP [address] [place] [phone] Nurse Practitioner Family Medicine 09/20/23 Director [place] Sales Relationship Specialty Start Date End Date Ty Amin MD [address] [place] [phone] PCP - General Family Medicine 09/20/23 Mckayla Blas NP [address] [place] [phone] PCP [facility] 09/07/23 09/05/90 Mckayla Blas NP [address] [place] [phone] Nurse Practitioner Family Medicine 09/20/23 Director [place] Sales Relationship Specialty Start Date End Date Ty Amin MD [address] [place] [address] PCP - General Family Medicine 09/20/23 Mckayla Blas NP [address] [place] [address] PCP - [facility] [facility] 09/07/23 09/05/90 Mckayla Blas NP [address] [place] [address] Nurse Practitioner Family Medicine 09/20/23 Director East Coast Sales Relationship Specialty Start Date End Date Ty Amin MD [address] [place] [address] PCP - General Family Medicine 09/20/23 Mckayla Blas NP [address] [place] [address] PCP - [facility] 09/07/23 09/05/90 Mckayla Blas NP [address] [place] [address] Nurse Practitioner Family Medicine 09/20/23 Director [place] Sales Relationship Specialty Start Date End Date Ty Amin MD [address] [place] [address] PCP - General Family Medicine 09/20/23 Mckayla Blas NP [address] [place] [address] PCP - [facility] 09/07/23 09/05/90 Mckayla Blas NP [address] [place] [address] Nurse Practitioner Family Medicine 09/20/23 Director [place] Sales Relationship Specialty Start Date End Date Ty Amin MD [address] [place] [address] PCP - General Family Medicine 09/20/23 Mckayla Blas NP [address] [place] [address] [facility] 09/07/23 09/05/90 Mckayla Blas NP [address] [place] [address] Nurse Practitioner Family Medicine 09/20/23 Director [place] Sales Relationship Specialty Start Date End Date Ty Amin MD [address] [place] [address] PCP - General Family Medicine 09/20/23 Mckayla Blas NP [address] [place] [address] PCP [facility] 09/07/23 09/05/90 Mckayla Blas NP [address] [place] [address] Nurse Practitioner Family Medicine 09/20/23 Director [place] Sales Relationship Specialty Start Date End Date Ty Amin MD [address] [place] [address] PCP - General Family Medicine 09/20/23 Mckayla Blas NP [address] [place] [address] PCP - [facility] 09/07/23 09/05/90 Mckayla Blas NP [address] [place] [address] Nurse Practitioner Family Medicine 09/20/23 Director [place] Sales Relationship Specialty Start Date End Date Ty Amin MD [address] [place] [address] PCP - General Family Medicine 09/20/23 Mckayla Blas NP [address] [place] [address] PCP - [facility] 09/07/23 09/05/90 Mckayla Blas NP [address] [place] [address] Nurse Practitioner Family Medicine 09/20/23 Director [place] Sales Relationship Specialty Start Date End Date Ty Amin MD [address] [place] [address] PCP - General Family Medicine 09/20/23 Mckayla Blas NP [address] [place] [address] PCP - [facility] 09/07/23 09/05/90 Mckayla Blas NP [address] [place] [address] Nurse Practitioner Family Medicine 09/20/23 Director [place] Sales Relationship Specialty Start Date End Date Ty Amin MD [address] [place] [address] PCP - General Family Medicine 09/20/23 Mckayla Blas NP [address] [place] [address] [facility] 09/07/23 09/05/90 Mckayla Blas NP [address] [place] [address] Nurse Practitioner Family Medicine 09/20/23 Director [place] Sales Relationship Specialty Start Date End Date Ty Amin MD [address] [place] [address] PCP - General Family Medicine 09/20/23 Mckayla Blas NP [address] [place] [address] PCP [facility] 09/07/23 09/05/90 Mckayla Blas NP [address] [place] [address] Nurse Practitioner Family Medicine 09/20/23 Director [place] Sales Relationship Specialty Start Date End Date Ty Amin MD [address] [place] [address] PCP - General Family Medicine 09/20/23 Mckayla Blas NP [address] [place] [address] PCP - [facility] 09/07/23 09/05/90 Mckayla Blas NP [address] [place] [address] Nurse Practitioner Family Medicine 09/20/23 Director [place] Coast Sales Relationship Specialty Start Date End Date Ty Amin MD [address] [place] [address] PCP - General Family Medicine 09/20/23 Mckayla Blas NP [address] [place] [address] Nurse Practitioner Family Medicine 09/20/23 Director [place] Sales Relationship Specialty Start Date End Date Ty Amin MD [address] [place] [address] PCP - General Family Medicine 09/20/23 Mckayla Blas NP [address] [place] [address] Nurse Practitioner Family Medicine 09/20/23 Director [place] Sales Relationship Specialty Start Date End Date Ty Amin MD [address] [place] [address] PCP - General Family Medicine 09/20/23 Mckayla Blas NP [address] [place] [address] Nurse Practitioner Family Medicine 09/20/23 Director [place] Sales Relationship Specialty Start Date End Date Ty Amin MD [address] [place] [address] PCP - General Family Medicine 09/20/23 Mckayla Blas NP [address] [place] [address] Nurse Practitioner Family Medicine 09/20/23 REASON FOR [...] BE BASED ON THE PRIMARY CLINICAL RECORDS. [facility] [facility]. provides no warranty or guarantee of the accuracy or completeness of information in this document.
== END 2025-03-04 13:07 | disposition home or self-care (01) ==
LOC: WC 13:06
PROVIDERS: PCP Nurse Practitioner; Visit Provider Physician Assistant
DX: I87.311 Chronic venous hypertension (idiopathic) with ulcer of right lower extremity (principal); L97.812 Non-pressure chronic ulcer of other part of right lower leg with fat layer exposed
CPT/HCPCS: 29581

== ENCOUNTER 2025-03-06 09:00 | Outpatient (OUT) | payer MEDICARE, SELFPAY ==
--- OUTSIDE RECORDS SUMMARY | 2025-03-10 15:46 | XMS_ITS | Encounter Summary ---
Author Organization [employer] Address [id number] [address] [place] [address] Care Team Providers Care Hybrid Corn Breeder Name Role Phone JuanjoseMckayla carcamo Krystal MEDICAL ANTHROPOLOGY DIRECTOR-PROJECT CONSULTANT Primary Care Provider Encounter Details Date Type Department Care Team (Late st Contact Info) Description 05/31/2020 Orders Only [facility] [address] [place] [address] External, Scanning Provider Social History Tobacco Use [...] ECG ORDERABLES Final Result Performing Organization Address [facility] Co de Phone Number MANUALLY TRANSCRIBED RESULTS [...] ECG ORDERABLES Final Result Performing Organization Address [facility] Co de Phone Number MANUALLY TRANSCRIBED RESULTS * Pulmonary function test (10/24/2018) us Scanning Provider External PFT ORDERABLES Final Result Performing Organization Address [facility] Co de Phone Number MANUALLY TRANSCRIBED RESULTS * Nuc stress Lexiscan/Exercise (12/12/2016) Anatomical Region Laterality Modality Chest N/A Nuclear Medicine us Scanning Provider External CV STRESS ORDERABLES Final Result documented in this encounter Visit Diagnoses Not on filedocumented in this encounter Care Teams Hybrid Corn Breeder Relationship Specialty Start Date End Date Mckayla Blas, MEDICAL ANTHROPOLOGY DIRECTOR-PROJECT CONSULTANT [address] [place] [address] PCP - General Nurse Practitioner 09/25/18 documented as of this encounter
--- OUTSIDE RECORDS SUMMARY | 2025-03-10 15:46 | XMS_ITS | Encounter Summary ---
Author Organization [facility] Address [id number] [address] [place] [address] Care Team Providers Care Sports Complex Attendant Name Role Phone Mckayla Blas APRN-GANG VIBRATOR OPERATOR Primary Care Provider Encounter Details Date Type Department Care Team (Late st Contact Info) Description 05/03/[address] [facility] [address] [place] [address] Tramaine Romero DO [address] [place] [address], [address] [id number] Social History Tobacco Use Types Packs/Day Years [...] on filedocumented in this encounter Care Teams Sports Complex Attendant Relationship Specialty Start Date End Date Mckayla Blas APRN-[place] [address] PCP - General Nurse Practitioner 09/25/18 documented as of this encounter
--- OUTSIDE RECORDS SUMMARY | 2025-03-10 15:46 | XMS_ITS | Encounter Summary ---
Author Organization [facility] Address [address] [place] [address] Care Team Providers Care Flotation Operator Name Role Phone Ty Amin MD Primary Care Provider [phone] Mckayla Blas NP Unavailable [phone] Mckayla Blas NP Unavailable [phone] Encounter Details Date Type Department Care Team (Late st Contact Info) Description 05/12/2024 Orders Only [facility] [address] [place] [address] Angela Cochran NP [address] [place] [address] Social History Tobacco Use Types [...] any clubs o r organizations such as congregational groups, unions, fraternal [...] Care Team (Late st Contact Info) Description 05/28/2025 10:30 AM EST Office Visit [facility] [address] [place] [address] Rain Souza MD [address] [place] [address] documented as of this encounter Procedures Procedure [...] Noted Time PHQ-9 Depression Total Score: 3 07/11/20 24 10:08 AM EDT documented as of this encounter Care Teams Flotation Operator Relationship Specialty Start Date End Date Ty Amin MD PCP - General Family Medicine 09/20/23 Mckayla Blas NP [address] [place] [address] PCP - [facility] 09/07/23 01/11/25 Mckayla Blas NP Nurse Practitioner Family Medicine 09/20/23 documented as of this encounter
--- OUTSIDE RECORDS SUMMARY | 2025-03-10 15:46 | XMS_ITS | Encounter Summary ---
Author Organization [facility] Address [address] [facility] [place] [address] Care Team Providers Care Mud Tank Operator Name Role Phone Ty Amin MD Primary Care Provider Mckayla Blas EARLY EDUCATION TEACHER Unavailable [phone] Encounter Details Date Type Department Care Team (Late st Contact Info) Description 02/18/2025 Abstract [facility] [address] [place] [address] Mckayla Blas NP [address] [place] [address] Social History Tobacco Use Types Packs/Day Years [...] in a fci (including now)? No 07/10/2023 Housing Stability Vital [...] were you homeless or living in a fci (including now)? No 08/26/2024 Comments Unknown Sex [...] Visit [facility] [address] [place] [address] Rain Souza MD [address] [place] [address] documented as of this encounter Visit Diagnoses Not on filedocumented in this encounter Additional Health Concerns Assessment Noted Time PHQ-9 Depression Total Score: 3 01/17/20 24 10:08 AM EDT documented as of this encounter Care Teams Mud Tank Operator Relationship Specialty Start Date End Date Ty Amin MD PCP - General Family Medicine 09/20/23 Mckayla Blas NP Nurse Practitioner Family Medicine 09/20/23 documented as of this encounter
--- OUTSIDE RECORDS SUMMARY | 2025-03-10 15:46 | XMS_ITS | Encounter Summary ---
Author Organization [facility] Address [id number] [address] [place] [address] Care Team Providers Care Bilingual Instructor Name Role Phone JuanjoseMckayla carcamo Krystal MOLDER LABELS-FLAKING ROLL OPERATOR Primary Care Provider Encounter Details Date Type Department Care Team (Late st Contact Info) Description 06/11/2020 Orders Only [facility] [address] [place] [address] External, Scanning Provider Social History Tobacco Use [...] on filedocumented in this encounter Care Teams Bilingual Instructor Relationship Specialty Start Date End Date Mckayla Blas, MOLDER LABELS-FLAKING ROLL OPERATOR [address] [place] [address] PCP - General Nurse Practitioner 09/25/18 documented as of this encounter
--- OUTSIDE RECORDS SUMMARY | 2025-03-10 15:46 | XMS_ITS | Encounter Summary ---
Author Organization [facility] Address [address] [place] [address] Care Team Providers Care Citrix Architect Name Role Phone Ty Amin MD Primary Care Provider [phone] Mckayla Blas NP Unavailable [phone] Mckayla Blas NP Unavailable [phone] Encounter Details Date Type Department Care [...] [facility] [address] [place] [address] Rain Souza MD [address] [place] [address] documented as of this encounter Procedures Procedure Name Priority Date/Time Associated Diagnosis Comments CT ABDOMEN PELVIS W CON 05/12/2024 2:16 PM EST documented in this encounter Results * CT ABDOMEN PELVIS W CON (05/12/2024 2:16 PM EST) Anatomical Region Laterality Modality Other 05/12/2024 2:16 PM EST Narrative 05/12/2024 2:19 PM EST The [address] [address] [address] Scan Report Signed Patient: MITZI MACIAS MR#: [id number] : 1970 Acct:[id number] Age/Sex: 53 / F ADM Date: 05/12/24 Loc: CT Attending Dr: Sarah MAYERS Ordering Physician: Sarah Vega Date of Service: 05/12/24 Procedure(s): CT abdomen pelvis w con Accession Number(s): [id number] cc: Mckayla Blas NP [place] [address] [place], [place] [address] Patient Name: MITZI MACIAS [facility][id number] date: 1970 Sex: F Assigned Patient Location: CT Current Patient Location: Accession/Order Number: [id number] Exam Date: 05/12/2024 11:15 Report Date: 05/12/2024 [...] Signed By: 05/12/24 1419 DD/ 1416 TD/TT: Lockstitch Shoulder Joiner: Procedure Note Radiology, Radiologist, MD - 05/12/2024 [place] [address] CT Scan Report Signed Patient: MITZI MACIAS LMR#: [id number] : 1970Acct:[id number] Age/Sex: 53 / FADM Date: 05/12/24 Loc: CT Attending Dr: Sarah MAYERS Ordering Physician: Sarah Vega Date of Service: 05/12/24 Procedure(s): CT abdomen pelvis w con Accession Number(s): [id number] cc: Mckayla Blas NP The [place] [id number] Patient Name: MITZI MACIAS MRN: [id number] date: 1970 Sex: F Assigned Patient Location: CT Current Patient Location: Accession/Order Number: [id number] Exam Date: 05/12/2024 11:15 Report Date: 05/12/2024 [...] M.D. Signed By:05/12/24 1419 DD/ 1416 TD/TT: Lockstitch Shoulder Joiner: Generic External Data Provider [facility] Final Result documented in this encounter Visit Diagnoses Not on filedocumented in this encounter Additional Health Concerns Assessment Noted Time PHQ-9 Depression Total Score: 3 01/17/20 24 10:08 AM EDT documented as of this encounter Care Teams Citrix Architect Relationship Specialty Start Date End Date Ty Amin MD PCP - General Family Medicine 09/20/23 Mckayla Blas NP [address] [place] [address] PCP - [facility] 09/07/23 01/11/25 Mckayla Blas NP Nurse Practitioner Family Medicine 09/20/23 documented as of this encounter
--- OUTSIDE RECORDS SUMMARY | 2025-03-10 15:46 | XMS_ITS | Encounter Summary ---
Author Organization [facility] Address [address] [place] [address] Care Team Providers Care Automatic Line Set Up Mechanic Name Role Phone Ty Amin MD Primary Care Provider [phone] Mckayla Blas NP Unavailable [phone] Mckayla Blas NP Unavailable [phone] Encounter Details Date Type Department Care [...] Recorded Patient Health Questionnaire-2 Score 1 01/17/2024 [facility] [...] [facility] [address] [place] [address] Rain Souza MD [address] [place] [address] documented as of this encounter Procedures Procedure Name Priority Date/Time Associated Diagnosis Comments MR LUMBAR SPINE WO CON 05/12/2024 2:41 PM EST documented in this encounter Results * MR LUMBAR SPINE WO CON (05/12/2024 2:41 PM EST) Anatomical Region Laterality Modality Other 05/12/2024 2:41 PM EST Narrative 05/12/2024 2:43 PM EST The [address] [address] Magnetic Resonance Report Signed Patient: MITZI MACIAS MR#: [id number] : 1970 Acct:[id number] Age/Sex: 53 / F ADM Date: 05/12/24 Loc: MRI Attending Dr: Angela Chin METAL SANDER Ordering Physician: Angela Chin NP Date of Service: 05/12/24 Procedure(s): MR lumbar spine wo con Accession Number(s): [id number] cc: Mckayla Blas NP; Angela Chin NP [place] [address] Patient Name: MITZI MACIAS MRN: [facility]:[id number] date: 1970 Sex: F Assigned Patient Location: MRI Current Patient Location: CT Accession/Order Number: [id number] Exam Date: 05/12/2024 09:21 Report Date: 05/12/2024 [...] Gardner M.D. Signed By: 05/12/24 1443 DD/ 40 TD/TT: Side Laster Tack: Procedure Note Radiology, Radiologist, MD - 05/12/2024 [place] [address] Magnetic Resonance Report Signed Patient: MITZI MACIAS LMR#: [id number] : 1970Acct:[id number] Age/Sex: 53 / FADM Date: 05/12/24 Loc: MRI Attending Dr: Angela Chin METAL SANDER Ordering Physician: Angela Chin NP Date of Service: 05/12/24 Procedure(s): MR lumbar spine wo con Accession Number(s): [id number] cc: Mckayla Blas METAL SANDER; Angela Chin NP The [place] [id number] Patient Name: MITZI MACIAS MRN: [id number] date: 1970 Sex: F Assigned Patient Location: MRI Current Patient Location: CT Accession/Order Number: [id number] Exam Date: 05/12/2024 09:21 Report Date: 05/12/2024 [...] M.D. Signed By:05/12/24 1443 DD/ 144 TD/TT: Side Laster Tack: Generic External Data Provider [facility] Final Result documented in this encounter Visit Diagnoses Not on filedocumented in this encounter Additional Health Concerns Assessment Noted Time PHQ-9 Depression Total Score: 3 01/17/20 24 10:08 AM EDT documented as of this encounter Care Teams Automatic Line Set Up Mechanic Relationship Specialty Start Date End Date Ty Amin MD PCP - General Family Medicine 09/20/23 Mckayla Blas NP [address] [place] [address] PCP - [facility] 09/07/23 01/11/25 Mckayla Blas NP Nurse Practitioner Family Medicine 09/20/23 documented as of this encounter
--- OUTSIDE RECORDS SUMMARY | 2025-03-10 15:46 | XMS_ITS | Encounter Summary ---
Author Organization [facility] Address [address] [place] [address] Care Team Providers Care Extract Mixer Name Role Phone Ty Amin MD Primary Care Provider [phone] Mckayla Blas PROJECT MANAGER ENTERTAINMENT AND MEDIA Unavailable [phone] Mckayla Blas NP Unavailable [phone] Encounter Details Date Type Department Care Team (Late st Contact Info) Description 04/14/2024 Orders Only [facility] [address] [place] [address] Mckayla Blas NP [address] [facility] [place] [address] Social History Tobacco Use Types Packs/Day Years [...] 01/17/2024 [facility] - Occupational Stress Questionnaire Answer Date [...] Visit [facility] [address] [place] [address] Rain Souza MD [address] [place] [address] documented as of this encounter Procedures Procedure Name Priority Date/Time Associated Diagnosis Comments XR ANKLE 3+ VIEWS RIGHT Routine 04/14/2024 2:57 PM EDT XR ANKLE 3+ VIEWS RIGHT Routine 04/14/2024 11:20 AM EDT documented in this encounter Results * XR ankle 3+ views right (04/14/2024 2:57 PM EDT) Anatomical Region Laterality Modality Lower Extremities, Ankle Right Radiogr aphic Imaging us Mckayla Blas PROJECT MANAGER ENTERTAINMENT AND MEDIA IMG XR PROCEDURES Final Result * XR ankle 3+ views right (04/14/2024 11:20 AM EDT) Anatomical Region Laterality Modality Lower Extremities, Ankle Right Radiogr aphic Imaging us Mckayla Blas PROJECT MANAGER ENTERTAINMENT AND MEDIA IMG XR PROCEDURES Final Result documented in this encounter Visit Diagnoses Not on filedocumented in this encounter Additional Health Concerns Assessment Noted Time PHQ-9 Depression Total Score: 3 01/17/20 10:08 AM EDT documented as of this encounter Care Teams Extract Mixer Relationship Specialty Start Date End Date Ty Amin MD PCP - General Family Medicine 09/20/23 Mckayla Blas NP [address] [place] [address] PCP - [facility] 09/07/23 01/11/25 Mckayla Blas NP Nurse Practitioner Family Medicine 09/20/23 documented as of this encounter
--- OUTSIDE RECORDS SUMMARY | 2025-03-10 15:46 | XMS_ITS | Encounter Summary ---
Author Organization [facility] Address [address] [place] [address] Care Team Providers Care Blending Tank Tender Helper Name Role Phone Ty Amin MD Primary Care Provider [phone] Mckayla Blas CORRECTIONS IDENTIFICATION TECHNICIAN Unavailable [phone] Mckayla Blas NP Unavailable [phone] Encounter Details Date Type Department Care Team (Late st Contact Info) Description 07/14/2024 Orders Only [facility] [address] [place] [address] Mckayla Blas NP [address] [facility] [place] [address] Social History Tobacco Use Types Packs/Day Years [...] any clubs o r organizations such as alevism groups, unions, fraternal or athletic groups, or [...] Recorded Patient Health Questionnaire-2 Score 1 01/17/2024 [facility] - Occupational Stress Questionnaire Answer Date [...] Visit [facility] [address] [place] [address] Rain Souza MD [address] [place] [address] documented as of this encounter Procedures Procedure [...] documented as of this encounter Care Teams Blending Tank Tender Helper Relationship Specialty Start Date End Date Ty Amin MD PCP - General Family Medicine 09/20/23 Mckayla Blas NP [address] [place] [address] PCP - [facility] 09/07/23 01/11/25 Mckayla Blas NP Nurse Practitioner Family Medicine 09/20/23 documented as of this encounter
--- OUTSIDE RECORDS SUMMARY | 2025-03-10 15:46 | XMS_ITS | Encounter Summary ---
Author Organization [facility] Address [id number] [address] [place] [address] Care Team Providers Care Analytical Statistician Name Role Phone JuanjoseMckayla carcamo Krystal PEREZN-DIRECTOR OF MARKET INTELLIGENCE Primary Care Provider Encounter Details Date Type Department Care Team (Late st Contact Info) Description 05/31/2020 Orders Only [facility] [address] [place] [address] External, Scanning Provider Social History Tobacco Use [...] on filedocumented in this encounter Care Teams Analytical Statistician Relationship Specialty Start Date End Date Mckayla Blas, BLAST FURNACE HELPER-DIRECTOR OF MARKET INTELLIGENCE [address] [place] [address] PCP - General Nurse Practitioner 09/25/18 documented as of this encounter
--- OUTSIDE RECORDS SUMMARY | 2025-03-10 15:46 | XMS_ITS | Encounter Summary ---
Author Organization [facility] Address [address] [place] [address] Care Team Providers Care Phone Circuit Operator Name Role Phone Ty Amin MD Primary Care Provider [phone] Ty Amin MD Primary Care Provider [phone] Mckayla Blas MANAGER DECISION SUPPORT Unavailable [phone] Mckayla Blas MANAGER DECISION SUPPORT Unavailable [phone] Encounter Details Date Type Department Care Team (Late st Contact Info) Description 08/31/2023 Clinisync Result Encounter [facility] External Department Unsolicited Andra Alcala PA [address] [place] [address] Dr [address] [place], [place] [address] Social History Tobacco Use Types Packs/Day Years [...] any clubs o r organizations such as gnosticism groups, unions, fraternal or athletic groups, or [...] Questionnaire-2 Score 2 07/10/2023 [facility] [...] [facility] [address] [place] [address] Rain Souza MD [address] [place] [address] documented as of this encounter Procedures Procedure [...] PM EST 09/10/2023 2:29 PM EST Narrative [facility] - 09/16/2023 1:07 PM EDT us Generic External Data Provider LAB BLOOD ORDERAB LES Final Result Performing Organization Address City/[facility]/ZIP Co de Phone Number [facility] * BLOOD CULTURE 1 (09/10/2023 2:05 PM EST) Pathologist [facility] BLOOD CULTURE 1 Blood Culture 1 NG5D NO GROWTH AT 5 DAYS.^NO GROWTH AT 5 DAYS. [facility] 09/10/2023 2:05 PM EST 09/10/2023 2:28 PM EST Narrative [facility] - 09/16/2023 1:07 PM EDT us Generic External Data Provider LAB BLOOD ORDERAB LES Final Result Performing Organization Address [facility] de Phone Number [facility] * ECG 12-LEAD (08/31/2023 6:08 PM EST) Anatomical Region Laterality Modality Other 08/31/2023 6:08 PM EST Narrative 09/02/2023 7:32 [place] [address] Electrocardiograph Report Signed Patient: MITZI MACIAS MR#: [id number] : 1970 Acct:[id number] Age/Sex: 53 / F ADM Date: 08/31/23 Loc: [place] 214-[address]: Jacqueline Becerra D.O. Ordering Physician: Andra Alcala Date of Service: 08/31/23 Procedure(s): ECG 12 lead Accession Number(s): [id number] cc: [facility] Test Date: 2023-08-31 Pat Name: MITZI MACIAS Department: Room: - Gender: Female Global Safety Officer: : 1970 Requested By: MCKAYLA BLAS Order Number: [id number] Reading MD: LAURI DIOR Measurements Intervals [place] Rate: 102 P: 67 VA: 144 QRS: 52 QRSD: 72 T: 49 QT: 326 QTc: 385 Interpretive Statements 1120 Sinus tachycardia 4068 Nonspecific Twave abnormality 8102 Low QRS voltage in chest leads 9140 abnormal rhythm ECG Compared to ECG 12/04/2022 21:27:48 Electronically Signed On 09-02-2023 7:31:43 EST by LAURI DIOR Dictated By: Lauri Dior D.O. Signed By: 09/02/23731 DD/ 07 TD/TT: Apprentice Machinist Outside: Procedure Note Radiology, Radiologist, MD - 09/02/2023 [place] [address] Electrocardiograph Report Signed Patient: MITZI MACIAS LMR#: [id number] : 1970Acct:[id number] Age/Sex: 53 / FADM Date: 08/31/23 Loc: MS 214-[address]: Jacqueline Becerra D.O. Ordering Physician: Andra Alcala Date of Service: 08/31/23 Procedure(s): ECG 12 lead Accession Number(s): [id number] cc: The [facility] Test Date: 2023-08-31 Pat Name: MITZI MACIAS Department: Room: - Gender: Female Global Safety Officer: : 1970 Requested By: MCKAYLA BLAS Order Number: [id number] Reading MD: LAURI DIOR Measurements Intervals [place] Rate: 102 P: 67 VA: 144 QRS: 52 QRSD: 72 T: 49 QT: 326 QTc: 385 Interpretive Statements 1120 Sinus tachycardia 4068 Nonspecific Twave abnormality 8102 Low QRS voltage in chest leads 9140 abnormal rhythm ECG Compared to ECG 12/04/2022 21:27:48 Electronically Signed On 09-02-2023 7:31:43 EST by LAURI DIOR Dictated By: Lauri Dior D.O. Signed By:09/02/23731 DD/ 07 TD/TT: Apprentice Machinist Outside: Andra MAYERS [facility] Final Result documented in this encounter Visit Diagnoses Not on filedocumented in this encounter Care Teams Phone Circuit Operator Relationship Specialty Start Date End Date Ty Amin MD PCP - General Family Medicine 01/05/23 09/19/23 Ty Amin MD PCP - General Family Medicine 09/20/23 Mckayla Blas NP [address] [place] [address] PCP - [facility] 09/07/23 01/11/25 Mckayla Blas NP Nurse Practitioner Family Medicine 09/20/23 documented as of this encounter
--- OUTSIDE RECORDS SUMMARY | 2025-03-10 15:46 | XMS_ITS | Encounter Summary ---
Author Organization [facility] Address [address] [place] [address] Care Team Providers Care Hand Stitcher Name Role Phone Ty Amin MD Primary Care Provider [phone] Ty Amin MD Primary Care Provider [phone] Mckayla Blas BUSINESS CONTINUITY STRATEGY DIRECTOR Unavailable [phone] Mckayla Blas BUSINESS CONTINUITY STRATEGY DIRECTOR Unavailable [phone] Encounter Details Date Type Department Care Team (Late st Contact Info) Description 09/12/2023 Orders Only [facility] [address] [place] [address] Social History Tobacco Use Types Packs/Day Years [...] How often do you attend chur or jew services? 1 to 4 times per year [...] Patient Health Questionnaire-2 Score 2 07/10/2023 [facility] [...] [facility] [address] [place] [address] Rain Souza MD [address] [place] [address] documented as of this encounter Procedures Procedure Name Priority Date/Time Associated Diagnosis Comments XR CHEST 1 VIEW Routine 09/11/2023 4:52 PM EST documented in this encounter Results * XR chest 1 view (09/11/2023 4:52 PM EST) Anatomical Region Laterality Modality Chest Radiographic Kalani ging [facility] IMG XR PROCEDURES Final Result documented in this encounter Visit Diagnoses Not on filedocumented in this encounter Care Teams Hand Stitcher Relationship Specialty Start Date End Date Ty Amin MD PCP - General Family Medicine 01/05/23 09/19/23 Ty Amin MD PCP - General Family Medicine 09/20/23 Mckayla Blas NP [address] [place] [address] PCP - [facility] 09/07/23 01/11/25 Mckayla Blas NP Nurse Practitioner Family Medicine 09/20/23 documented as of this encounter
--- OUTSIDE RECORDS SUMMARY | 2025-03-10 15:46 | XMS_ITS | Encounter Summary ---
Author Organization [facility] Address [address] [place] [address] Care Team Providers Care Workers Compensation Claims Examiner Name Role Phone Ty Amin MD Primary Care Provider [phone] Mckayla Blas OPTOMETRIST/PRACTICE OWNER Unavailable [phone] Mckayla Blas NP Unavailable [phone] Encounter Details Date Type Department Care Team (Late st Contact Info) Description 01/07/2025 Abstract [facility] [address] [place] [address] Mckayla Blas NP [address] [facility] [place] [address] Social History Tobacco Use Types Packs/Day Years [...] attend chur ch or jehovah's witness services? More than 4 times per year [...] in a mcc (including now)? No 07/10/2023 Housing Stability Vital [...] were you homeless or living in a mcc (including now)? No 08/26/2024 Comments Unknown Sex [...] [facility] [address] [place] [address] Rain Souza MD [address] [place] [address] documented as of this encounter Visit Diagnoses Not on filedocumented in this encounter Additional Health Concerns Assessment Noted Time PHQ-9 Depression Total Score: 3 01/17/20 24 10:08 AM EDT documented as of this encounter Care Teams Workers Compensation Claims Examiner Relationship Specialty Start Date End Date Ty Amin MD PCP - General Family Medicine 09/20/23 Mckayla Blas NP [address] [place] [address] PCP - [facility] 09/07/23 01/11/25 Mckayla Blas NP Nurse Practitioner Family Medicine 09/20/23 documented as of this encounter
--- OUTSIDE RECORDS SUMMARY | 2025-03-10 15:47 | XMS_ITS | Encounter Summary ---
Author Organization [facility] Address [address] [place] [address] Care Team Providers Care Veterinary Hospital Attendant Name Role Phone Ty Amin MD Primary Care Provider [phone] Mckayla Blas NP Unavailable [phone] Reason for Visit * Reason Onset Date Comments Med Refill 02/27/2025 Encounter Details Date Type Department Care Team (Late st Contact Info) Description 02/27/2025 Refill [facility] [address] [place] [address] Amber Pinzon LPN Type 2 diabetes mellitus [...] How often do you attend chur or anglican services? More than 4 times per year [...] Recorded Patient Health Questionnaire-2 Score 0 01/26/2025 [facility] [...] Description 05/28/2025 10:30 AM EST Office Visit [facility] [address] [place] [address] Rain Souza MD [address] [place] [address] documented as of this encounter Visit Diagnoses Diagnosis Type 2 diabetes mellitus with other circulatory complications (HCC) documented in this encounter Additional Health Concerns Assessment Noted Time PHQ-9 Depression Total Score: 3 01/17/20 24 10:08 AM EDT documented as of this encounter Care Teams Veterinary Hospital Attendant Relationship Specialty Start Date End Date Ty Amin MD PCP - General Family Medicine 09/20/23 Mckayla Blas NP Nurse Practitioner Family Medicine 09/20/23 documented as of this encounter
--- OUTSIDE RECORDS SUMMARY | 2025-03-10 15:47 | XMS_ITS | Clinical Summary ---
Author Organization [facility] Address [address] [place] [address] Care Team Providers Care Cut Press Operator Name Role Phone Ty Amin MD Primary Care Provider [phone] Mckayla Blas NP Unavailable [phone] Allergies No known active allergies Medications [...] if needed for wheezing Active HYDROcodone-acet aminophen ([place]) 5-325 MG tablet 1 tablet as needed [...] 025 Active ergocalciferol (Vitamin D2) 1.25 MG (71718 UT) capsuleIndicatio ns:Vitamin D deficiency, unspecified Take [...] hyperglycemia, with long-term current use of insulin ([facility]) Inject 58 Units under the skin in the morning and 58 Units before bedtime. 104.4 mL 1 025 2025 Active insulin glargine (Lantus SoloStar) 100 UNIT/ML penIndications:T ype 2 diabetes mellitus with hyperglycemia, with long-term current use of insulin ([facility]) INJECT 58 UNITS SUBCUTANEOUSLY TWICE A DAY [...] 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 as possible terminal system operator current use of inhaled steroid 025 [...] see if helps Encounter for subsequent [facility] wellness visit (AWV) in Medicare [...] can try ubrelvy #3 samples given: Lot [id number], exp 03/2025 Mixed incontinence 11/14/2023 Arthritis 11/14/2023 [...] is necessary they take over prescribing Pancreatitis ([facility]) 09/17/2023 COPD exacerbation 09/17/2023 Assessment & [...] 11:17 AM EDT): Open wounds refer to [facility] Wound Care Pulmonary hypertension 09/17/2023 Assessment & Plan (01/26/2025 7:52 AM EDT): Has seen [facility] Cardiology Assessment & Plan (12/09/2024 7:23 AM EDT): Has seen [facility] Cardiology Assessment & Plan (11/15/2023 3:49 PM EDT): Saw [facility] Cardiology See notes Going to see Pulmonary Assessment & Plan (09/27/2023 1:03 PM EDT): Needs to wear her PAP I am also going to have her see 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 [address] [facility] [place] [address] Mckayla Blas NP Tobacco user; Encounter for smoking cessation counseling 02/27/2025 Refill [facility] [address] [place] [address] Amber Pinzon LPN Type 2 diabetes mellitus with other circulatory complications (HCC) 02/26/2025 Refill [facility] [address] [place] [address] Rain Odonnell MD Type 2 diabetes mellitus with other circulatory complications (HCC) 02/18/2025 Abstract [facility] [address] [place] [address] Mckayla Blas NP 02/14/2025 Refill [facility] [address] [place] [address] Rain Odonnell MD Type 2 diabetes mellitus with hyperglycemia, with long-term current use of insulin (HCC) 01/29/2025 9:40 AM EDT Office Visit [facility] [address] [place] [address] Rain Odonnell MD Encounter for dietary consultation (Primary Dx); Type 2 diabetes mellitus with hyperglycemia, with long-term current use of insulin (HCC); Vitamin D deficiency; Primary hypertension ; Insulin long-term use (HCC); Hyperlipemia, mixed ; Microalbuminuria; Class 3 severe obesity due to excess calories with serious comorbidity and body mass index (BMI) of 50.0 to 59.9 in adult ([facility]-H[facility]) 01/29/2025 Clinisync Result Encounter [facility] External Department Unsolicited Provider, Generic External Data 01/29/2025 Bamboo flowsheet [facility] [address] [place] [address] Rain Odonnell MD 01/26/2025 6:00 PM EDT Office Visit [facility] [address] [place] [address] Mckayla Blas NP Encounter for subsequent annual [...] (severe) obesity due to excess calories ([facility]) 01/26/2025 Bamboo flowsheet [facility] [address] [place] [address] Mckayla Blas NP 01/19/2025 Travel 01/16/2025 Refill [facility] [address] [place] [address] Amber Pinzon LPN Vitamin D deficiency, unspecified 01/07/2025 Abstract [facility] [address] [place] [address] Mckayla Blas NP 01/07/2025 Abstract [facility] [address] [place] [address] Mckayla Blas NP 12/18/2024 Refill [facility] [address] [place] [address] Mckayla Blas NP Hyperlipidemia, unspecified ; Tobacco user; Encounter for smoking cessation counseling 12/17/2024 Telephone [facility] [address] [place] [address] Mckayla Blas NP Error (VOID this visit) 12/09/2024 10:00 AM EDT Office Visit [facility] [address] [place] [address] Mckayla Blas, SILVANO Cellulitis of left lower extremity (Primary Dx); COPD exacerbation (HCC); Primary hypertension ; Pulmonary hypertension (HCC); Morbid (severe) obesity due to excess calories (CMS-HCC); Type 2 diabetes mellitus with complication, with long-term current use of insulin (HCC); Anxiety and depression ; Fever, unspecified fever cause 12/09/2024 [employer] flowsheet [facility] [address] [place] [address] Mckayla Blas NP 12/08/2024 Travel from Last 3 Months Immunizations Immunization Administration Dates Next Due Influenza Whole 05/02/2013 Influenza, [id number] 04/16/2017,05/10/2016 Influenza, Unspecified 05/18/2023,04/16/2017,08/2015 Influenza, injectable, quadrivalent [...] Recorded Patient Health Questionnaire-2 Score 0 01/26/2025 [facility] - Occupational Stress [...] in a usp (including now)? No 07/10/2023 Housing Stability Vital Sign Answer Wilmer e Recorded In the last 12 months, was t here a time when you were not able to pay the mortgage or rent on time? No 08/26/2024 Number of Times Moved in the Last Year Not on fi le 08/26/2024 At any time in the past 12 m [facility], were you homeless or living in a usp (including now)? No 08/26/2024 Comments Unknown Sex [...] [facility] [address] [place] [address] Rain Odonnell MD [address] [place] [address] Health Maintenance Due Date Last Done Comments CT Colonography 1970 Colonoscopy 1970 FIT 1970 FOBT 1970 Sigmoidoscopy 1970 HPV/Cotest 2000 Pap Smear 10/07/2018 10/08/2015, 10/08/2015 Mammogram 12/13/2024 12/14/2023, 06/01/2024, 11/22/2022 Influenza Vaccine (#1) 2025 , 05/18/2023, [...] EDT Narrative 01/29/2025 6:40 [place] [address] Cardiology Report Signed Patient: SINA MACIAS MR#: [id number] : 1970 Acct:[id number] Age/Sex: 54 / F ADM Date: 01/29/25 Loc: CARD Attending Dr: AMI ORO APRN Ordering Physician: AMI ORO APRN Date of Service: 01/29/25 Procedure(s): CA echo doppler complete Accession Number(s): [id number] cc: Mckayla Blas RESTORER LACE AND TEXTILES; AMI ORO APRN Patient Name: SINA MACIAS MR#: [id number] : 1970 Exam Date: 01/29/2025 Ordering Doctor: [...] AGUILAR Signed By: 01/29/251839 DD/ 39 TD/TT: Residential Support Worker: Procedure Note Radiology, Radiologist, MD - 01/29/2025 [place] [address] Cardiology Report Signed Patient: SINA MACIAS LMR#: [id number] : 1970Acct:[id number] Age/Sex: 54 / FADM Date: 01/29/25 Loc: CARD Attending Dr: AMI ORO APRN Ordering Physician: AMI ORO APRN Date of Service: 01/29/25 Procedure(s): CA echo doppler complete Accession Number(s): [id number] cc: Mckayla Blas RESTORER LACE AND TEXTILES; AMI ORO APRN Patient Name: SINA MACIAS MR#: [id number] : 1970 Exam Date: 01/29/2025 Ordering Doctor: AMI ORO ADMINISTRATIVE PROJECT COORDINATOR ECHOCARDIOGRAM REPORT PROCEDURE: CA ECHO DOPPLER COMPLETE [...] BHARAT AGUILAR Signed By:01/29/251839 DD/ 39 TD/TT: Residential Support Worker: Generic External Data Provider [facility] Final [...] EDT Narrative 12/14/2023 11:22 [place] [address] Mammography Report Signed Patient: SINA MACIAS MR#: [id number] : 1970 Acct:[id number] Age/Sex: 53 / F ADM Date: 12/13/23 Loc: MAMMO Attending Dr: Mckayla Blas NP Ordering Physician: Mckayla Blas NP Results: Date of Service: 12/13/23 Follow Up: Procedure(s): MM tomosynthesis screening BI Accession Number(s): [id number] cc: Mckayla Blas NP Patient Name: SINA MACIAS MR#: [id number] : 1970 Exam Date: 12/13/2023 Ordering Doctor: SAYDA Blas ADMINISTRATIVE PROJECT COORDINATOR RADIOLOGY REPORT PROCEDURE: MM TOMOSYNTHESIS SCREENING BI [...] LOCATION: [facility] BREAST COMPOSITION: The breasts are [...] Signed By: 12/14/23 1122 DD/ 1121 TD/TT: Residential Support Worker: Procedure Note Radiology, Radiologist, MD - 12/14/2023 [place] [address] Mammography Report Signed Patient: SINA MACIAS LMR#: [id number] : 1970Acct:[id number] Age/Sex: 53 / FADM Date: 12/13/23 Loc: MAMMO Attending Dr: Mckayla Blas RESTORER LACE AND TEXTILES Ordering Physician: Mckayla Blas NPResults: Date of Service: 12/13/23Follow Up: Procedure(s): MM tomosynthesis screening BI Accession Number(s): [id number] cc: Mckayla Blas NP Patient Name: SINA MACIAS MR#: [id number] : 1970 Exam Date: 12/13/2023 Ordering Doctor: [...] LOCATION: [facility] BREAST COMPOSITION: The breasts are [...] M.D. Signed By:12/14/23 1122 DD/ 1121 TD/TT: Residential Support Worker: Mckayla Blas NP [facility] Final Result from Last 3 Months or Most Recently Relevant to Health Maintenance Insurance MEDICARE [employer] Care Teams Cut Press Operator Relationship Specialty Start Date End Date Ty Amin MD PCP - General Family Medicine 09/20/23 Mckayla Blas NP Nurse Practitioner Family Medicine 09/20/23
--- OUTSIDE RECORDS SUMMARY | 2025-03-10 15:47 | XMS_ITS | Encounter Summary ---
Author Organization [facility] Address [address] [place] [address] Care Team Providers Care Technology Adoption Manager Name Role Phone Ty Amin MD Primary Care Provider [phone] Mckayla Blas FIELD MAP EDITOR Unavailable [phone] Mckayla Blas NP Unavailable [phone] Encounter Details Date Type Department Care Team (Late st Contact Info) Description 01/07/2025 Abstract [facility] [address] [place] [address] Mckayla Blas NP [address] [facility] [address] Social History Tobacco Use Types Packs/Day Years [...] Score 1 01/17/2024 [facility]at [facility] [...] [facility] [address] [place] [address] Rain Souza MD [address] [place] [address] documented as of this encounter Visit Diagnoses Not on filedocumented in this encounter Additional Health Concerns Assessment Noted Time PHQ-9 Depression Total Score: 3 01/17/20 24 10:08 AM EDT documented as of this encounter Care Teams Technology Adoption Manager Relationship Specialty Start Date End Date Ty Amin MD PCP - General Family Medicine 09/20/23 Mckayla Blas NP [address] [place] [address] PCP - [facility] 09/07/23 01/11/25 Mckayla Blas NP Nurse Practitioner Family Medicine 09/20/23 documented as of this encounter
--- OUTSIDE RECORDS SUMMARY | 2025-03-10 15:47 | XMS_ITS | Encounter Summary ---
Author Organization [facility] Address [address] [place] [facility] [place] [address] Care Team Providers Care Shuttle Car Operator Name Role Phone yT Amin MD Primary Care Provider [phone] Mckayla Blas SERVER SUPPORT TECHNICIAN Unavailable [phone] Mckayla Blas NP Unavailable [phone] Encounter Details Date Type Department Care Team (Late st Contact Info) Description 12/17/2023 Orders Only [facility] [address] [place] [address] Mckayla Blas NP [address] [place] [address] Social History Tobacco Use Types Packs/Day Years [...] Recorded Patient Health Questionnaire-2 Score 0 11/01/2023 [facility] Occupat ional Health - Occupational [...] EST Office Visit [facility] [address] [place] [address] Rain Souza MD [address] [place] [address] documented as of this encounter Procedures Procedure [...] on filedocumented in this encounter Care Teams Shuttle Car Operator Relationship Specialty Start Date End Date Naderer, Ty, MD PCP - General Family Medicine 09/20/23 Mckayla Blas NP [address] [place] [address] PCP - [facility] 09/07/23 01/11/25 Mckayla Blas NP Nurse Practitioner Family Medicine 09/20/23 documented as of this encounter
--- OUTSIDE RECORDS SUMMARY | 2025-03-10 15:47 | XMS_ITS | Encounter Summary ---
Author Organization [facility] Address [address] [place] [address] Care Team Providers Care Electric Tripper 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 Name Role Phone Ty Amin MD Primary Care Provider [phone] Ty Amin MD Primary Care Provider [phone] Mckayla Blas HAULING CONTRACTOR Unavailable [phone] Mckayla Blas HAULING CONTRACTOR Unavailable [phone] Encounter Details Date Type Department Care Team (Late st Contact Info) Description 07/08/2023 Abstract [facility] [address] [place] [address] Mckayla Blas NP [address] [place] [address] Social History Tobacco Use Types Packs/Day Years [...] people? Somewhat difficult 07/10/2023 11:17 AM INDRA LADN ICA documented as of this encounter Plan of Treatment Upcoming Encounters Date Type Department Care Team (Late st Contact Info) Description 05/28/2025 10:30 AM EST Office Visit [facility] [address] [place] [address] Rain Souza MD [address] [place] [address] documented as of this encounter Visit Diagnoses Not on filedocumented in this encounter Care Teams Electric Tripper 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 Relationship Specialty Start Date End Date Ty Amin MD PCP - General Family Medicine 01/05/23 09/19/23 Ty Amin MD PCP - General Family Medicine 09/20/23 Mckayla Blas NP [address] [facility] [place] [address] PCP - [facility] 09/07/23 01/11/25 Mckayla Blas NP Nurse Practitioner Family Medicine 09/20/23 documented as of this encounter
--- OUTSIDE RECORDS SUMMARY | 2025-03-10 15:47 | XMS_ITS | Clinical Summary ---
Author Organization [facility] Address [address] [place] [address] Care Team Providers Care Airport Location Manager Name Role Phone Mckayla Blas MD Primary Care Provider [phone] Allergies No known active allergies Medications amitriptyline [...] SUBCUTANEOUSLY TWICE DAILY 2 Active HYDROcodone-ac etaminophen ([place]) 5-325 mg tablet TAKE 1 TABLET BY MOUTH THREE TIMES A DAY NEEDED FOR PAIN MUST LAST 30 DAYS 4 Active DULoxetine (Cymbalta) [address] capsule Take 1 tablet by mouth in the morning. Active ergocalciferol (Vitamin D-2) 1.25 MG (45506 Units) capsule Take 1.25 mg by mouth. [...] Assessment & Plan: Open wounds refer to [facility] Wound Care Vaginal yeast infection 08/17/2023 [...] am also going to have her see [facility] Cardiology as well Encounters Date Type Department Care Team Description 02/04/2025 Results Follow-Up Cardiology [address] [place] [address] Karma Chatterjee CNP Complete Echo (TTE) w/wo Imaging Agent, Strain, 3D, Bubble Study 01/30/2025 Orders Only [facility] [address] [place] [address] Provider, MD Dale 01/06/2025 11:20 AM EDT Office Visit [facility] [address] [place] [facility] [address] Karma Chatterjee CNP Chronic diastolic heart failure [...] drink = 0.6 oz pur e alcohol) NE Safety & Environment Answer Date Rec orded [...] Months Insurance [employer] MEDICARE Care Teams Airport Location Manager Relationship Specialty Start Date End Date Mckayla Blas MD [address] [place] [address] PCP - General Nurse Practitioner 11/13/23
--- OUTSIDE RECORDS SUMMARY | 2025-03-10 15:47 | XMS_ITS | Encounter Summary ---
Author Organization [facility] Address [address] [facility] [place] [address] Care Team Providers Care Estate Planner Name Role Phone Ty Amin MD Primary Care Provider [phone] Mckayla Blas COLDFUSION Unavailable [phone] Reason for Visit * Reason Comments Med Refill Encounter Details Date Type Department Care Team (Late st Contact Info) Description 03/09/2025 Refill [facility] [address] [place] [address] Mckayla Blas, COLDFUSION [address] [facility] [place] [address] Tobacco user; Encounter for smoking cessation counseling [...] How often do you attend chur or adventist services? More than 4 times per year [...] Questionnaire-2 Score 0 01/26/2025 [facility] Occupat [...] a nursing home (including now)? No 07/10/2023 Housing Stability Vital Sign Answer Wilmer e Recorded In the last 12 months, was t here a time when you were not able to pay the mortgage or rent on time? No 08/26/2024 Number of Times Moved in the Last Year Not on fi le 08/26/2024 At any time in the past 12 m [facility], were you homeless or living in a nursing home (including now)? No 08/26/2024 Comments Unknown [...] [facility] [address] [place] [address] Rain Souza MD [address] [place] [address] documented as of this encounter Visit Diagnoses Diagnosis Tobacco user Tobacco use disorder Encounter for smoking cessation counseling documented in this encounter Additional Health Concerns Assessment Noted Time PHQ-9 Depression Total Score: 3 01/17/20 24 10:08 AM EDT documented as of this encounter Care Teams Estate Planner Relationship Specialty Start Date End Date Ty Amin MD PCP - General Family Medicine 09/20/23 Mkcayla Blas NP Nurse Practitioner Family Medicine 09/20/23 documented as of this encounter
--- OUTSIDE RECORDS SUMMARY | 2025-03-10 15:47 | XMS_ITS | Encounter Summary ---
Author Organization [facility] Address [address] [place] [address] Care Team Providers Care Engagement Mgr Name Role Phone Ty Amin MD Primary Care Provider [phone] Mckayla Blas NP Unavailable [phone] Reason for Visit * Reason Comments Med Refill Encounter Details Date Type Department Care Team (Late st Contact Info) Description 02/26/2025 [facility]ill [facility] [address] [place] [id number] Rain Souza MD [address] [place] [address] Type 2 diabetes mellitus with other circulatory [...] How often do you attend chur or episcopalian services? More than 4 times per year [...] Recorded Patient Health Questionnaire-2 Score 0 01/26/2025 [facility] [...] [facility] [address] [place] [address] Rain Souza MD [address] [place] [address] documented as of this encounter Visit Diagnoses Diagnosis Type 2 diabetes mellitus with other circulatory complications (HCC) documented in this encounter Additional Health Concerns Assessment Noted Time PHQ-9 Depression Total Score: 3 01/17/20 24 10:08 AM EDT documented as of this encounter Care Teams Engagement Mgr Relationship Specialty Start Date End Date Ty Amin MD PCP - General Family Medicine 09/20/23 Mckayla Blas NP Nurse Practitioner Family Medicine 09/20/23 documented as of this encounter
--- OUTSIDE RECORDS SUMMARY | 2025-03-10 15:47 | XMS_ITS | Clinical Summary ---
Author Organization [employer] Address [id number] [address] [place] [address] Care Team Providers Care Bi Tri Operator Name Role Phone Wan Mckayla Krystal PEREZN-FINANCIAL SERVICES ASSOCIATE Primary Care Provider Allergies No known active [...] Medical Devices Not on file Insurance [place] [employer] MEDICARE Care Teams Bi Tri Operator Relationship Specialty Start Date End Date Mckayla Blas APRN-FINANCIAL SERVICES ASSOCIATE [address] [place] [address] PCP - General Nurse Practitioner 09/25/18
--- OUTSIDE RECORDS SUMMARY | 2025-03-10 15:47 | XMS_ITS | Encounter Summary ---
Author Organization [facility] Address [address] [place] [address] Care Team Providers Care Trophy Assembler Name Role Phone Mckayla Blas MD Primary Care Provider [phone] Encounter Details Date Type Department Care Team (Late st Contact Info) Description 02/04/2025 Results Follow-Up Cardiology [address] [place] [place] [address] Karma Chatterjee CNP [address] [place] [id number] Complete Echo (TTE) w/wo Imaging Agent, Strain, [...] on filedocumented in this encounter Care Teams Trophy Assembler Relationship Specialty Start Date End Date Mckayla Blas MD [address] [place] [address] PCP - General Nurse Practitioner 11/13/23 documented as of this encounter
--- OUTSIDE RECORDS SUMMARY | 2025-03-10 15:47 | XMS_ITS | Encounter Summary ---
Author Organization [facility] Address [address] [place] [address] Care Team Providers Care Hospital Superintendent Name Role Phone Ty Amin MD Primary Care Provider [phone] Mckayla Blas POOL FINISHER Unavailable [phone] Mckayla Blas POOL FINISHER Unavailable [phone] Reason for Visit * Reason Comments Med Refill Encounter Details Date Type Department Care Team (Late st Contact Info) Description 11/27/2023 [facility]ill [facility] [address] [place] [address] Mckayla Blas NP [address] [facility] [address] [place] [address] Chronic obstructive pulmonary disease, unspecified (HCC) Social [...] Recorded Patient Health Questionnaire-2 Score 0 11/01/2023 [facility] - [...] [facility] [address] [place] [address] Rain Souza MD [address] [place] [address] documented as of this encounter Visit Diagnoses Diagnosis Chronic obstructive pulmonary disease, unspecified (HCC) documented in this encounter Care Teams Hospital Superintendent Relationship Specialty Start Date End Date Ty Amin MD PCP - General Family Medicine 09/20/23 Mckayla Blas NP [address] [place] [address] PCP - [facility] 09/07/23 01/11/25 Mckayla Blas NP Nurse Practitioner Family Medicine 09/20/23 documented as of this encounter
--- OUTSIDE RECORDS SUMMARY | 2025-03-10 15:47 | XMS_ITS | Encounter Summary ---
Author Organization [facility] Address [address] [place] [address] Care Team Providers Care Merchandising Assistant Name Role Phone Ty Amin MD Primary Care Provider [phone] Mckayla Blas NP Unavailable [phone] Mckayla Blas NP Unavailable [phone] Encounter Details Date Type Department Care [...] [facility] [address] [place] [address] Rain Souza MD [address] [place] [address] documented as of this encounter Procedures Procedure Name Priority Date/Time Associated Diagnosis Comments SEGMENTAL BLOOD PRESSURE 04/24/2024 11:20 AM EDT documented in this encounter Results * SEGMENTAL BLOOD PRESSURE (04/24/2024 11:20 AM EDT) Anatomical Region Laterality Modality Radiographic Kalani ging 04/24/2024 11:2 0 AM EDT Narrative 04/24/2024 11:23 AM EDT The [address] [address] Vein Report Signed Patient: MITZI MACIAS MR#: [id number] : 1970 Acct:[id number] Age/Sex: 53 / F ADM Date: 04/24/24 Loc: [facility] Attending Dr: Rafael Gongora Ordering Physician: Rafael Gongora Date of Service: 04/24/24 Procedure(s): VC SEGMENTAL PRESSURES Accession Number(s): [id number] cc: Mckayla Blas NP; Rafael Gongora The [place] [address] Patient Name: MITZI MACIAS MRN: [id number] date: 1970 Sex: F Assigned Patient Location: VC Current Patient Location: VC Accession/Order Number: [id number] Exam Date: 04/24/2024 10:25 Report Date: 04/24/2024 11:20 At the request of: RAFAEL GONGORA Procedure: VC SEGMENTAL PRESSURES EXAM: VC SEGMENTAL PRESSURES HISTORY: R09.89 COMPARISON: None. FINDINGS: Segmental pressures presented as follows (right, left) in mmHg. Brachial: 169, 166 Upper thigh: Not obtained Lower thigh: 129, 119 Calf: 124, 106 DPA: 108, 105 WATCHMAKING TEACHER: 100, 91 1st Toe: 124, 142 ISABELLE: [...] Signed By: 04/24/24 1123 DD/ 1120 TD/TT: [employer]: Procedure Note Radiology, Radiologist, MD - 04/24/2024 [place] [address] Vein Report Signed Patient: MITZI MACIAS LMR#: [id number] : 1970Acct:[id number] Age/Sex: 53 / FADM Date: 04/24/24 Loc: VC Attending Dr: Rafael Gongora Ordering Physician: Rafael Gongora Date of Service: 04/24/24 Procedure(s): VC SEGMENTAL PRESSURES Accession Number(s): [id number] cc: Mckayla Blas NP; Rafael Gongora [place] [id number] Patient Name: MITZI MACIAS MRN: [facility]:[id number] date: 1970 Sex: F Assigned Patient Location: VC Current Patient Location: VC Accession/Order Number: [id number] Exam Date: 04/24/2024 10:25 Report Date: 04/24/2024 11:20 At the request of: RAFAEL GONGORA Procedure: VC SEGMENTAL PRESSURES EXAM: VC SEGMENTAL PRESSURES HISTORY: R09.89 COMPARISON: None. FINDINGS: Segmental pressures presented as follows (right, left) in mmHg. Brachial: 169, 166 Upper thigh: Not obtained Lower thigh: 129, 119 Calf: 124, 106 DPA: 108, 105 WATCHMAKING TEACHER: 100, 91 1st Toe: 124, 142 ISABELLE: [...] M.D. Signed By:04/24/24 1123 DD/ 1120 TD/TT: [employer]: us Generic External Data Provider IMG XR PROCEDURES Final Result documented in this encounter Visit Diagnoses Not on filedocumented in this encounter Additional Health Concerns Assessment Noted Time PHQ-9 Depression Total Score: 3 01/17/20 24 10:08 AM EDT documented as of this encounter Care Teams Merchandising Assistant Relationship Specialty Start Date End Date Ty Amin MD PCP - General Family Medicine 09/20/23 Mckayla Blas NP [address] [place] [address] PCP - [facility] 09/07/23 01/11/25 Mckayla Blas NP Nurse Practitioner Family Medicine 09/20/23 documented as of this encounter
--- OUTSIDE RECORDS SUMMARY | 2025-03-10 15:47 | XMS_ITS | Encounter Summary ---
Author Organization [facility] Address [address] [place] [address] Care Team Providers Care Baseball Player Name Role Phone Ty Amin MD Primary Care Provider [phone] Mckayla Blas USER INTERFACE ENGINEER Unavailable [phone] Mckayla Blas NP Unavailable [phone] Encounter Details Date Type Department Care Team (Late st Contact Info) Description 12/14/2023 Clinisync Result Encounter [facility] External Department Unsolicited Mckayla Blas NP [address] [place] [address] Social History Tobacco Use Types Packs/Day Years [...] How often do you attend chur or samaritan services? 1 to 4 times per year 07/10/2023 Do you belong to any clubs o r organizations such as yazidism groups, unions, fraternal or athletic groups, or [...] Recorded Patient Health Questionnaire-2 Score 0 11/01/2023 [facility] - [facility]ational Stress Questionnaire Answer Date [...] [facility] [address] [place] [address] Rain Souza MD [address] [place] [address] documented as of this encounter Procedures Procedure Name Priority Date/Time Associated Diagnosis Comments MM TOMOSYNTHESIS SCREENING BI 12/14/2023 11:21 AM EDT documented in this encounter Results * MM TOMOSYNTHESIS SCREENING BI (12/14/2023 11:21 AM EDT) Anatomical Region Laterality Modality Other 12/14/2023 11:2 1 AM EDT Narrative 12/14/2023 11:22 AM EDT The [address] [address] Mammography Report Signed Patient: MITZI MACIAS MR#: [id number] : 1970 Acct:[id number] Age/Sex: 53 / F ADM Date: 12/13/23 Loc: MAMMO Attending Dr: Mckayla Blas NP Ordering Physician: Mckayla Blas NP Results: Date of Service: 12/13/23 Follow Up: Procedure(s): MM tomosynthesis screening BI Accession Number(s): [id number] cc: Mckayla Blas NP Patient Name: MITZI MACIAS MR#: [id number] : 1970 Exam Date: 12/13/2023 Ordering Doctor: [...] unknown cancer at age 75. LOCATION: The [facility] BREAST COMPOSITION: The breasts are almost entirely [...] Signed By: 12/14/23 1122 DD/ 1121 TD/TT: Head Bellhop Captain: Procedure Note Radiology, Radiologist, MD - 12/14/2023 [place] [address] Mammography Report Signed Patient: MITZI MACIAS LMR#: [id number] : 1970Acct:[id number] Age/Sex: 53 / FADM Date: 12/13/23 Loc: MAMMO Attending Dr: Mckayla Blas USER INTERFACE ENGINEER Ordering Physician: Mckayla Blas NPResults: Date of Service: 12/13/23Follow Up: Procedure(s): MM tomosynthesis screening BI Accession Number(s): [id number] cc: Mckayla Blas NP Patient Name: MITZI MACIAS MR#: [id number] : 1970 Exam Date: 12/13/2023 Ordering Doctor: SAYDA Blas RESIDENCE LEASING AGENT RADIOLOGY REPORT PROCEDURE: MM TOMOSYNTHESIS SCREENING [...] unknown cancer at age 75. LOCATION: The [facility] BREAST COMPOSITION: The breasts are almost entirely [...] M.D. Signed By:12/14/23 1122 DD/ 1121 TD/TT: Head Bellhop Captain: us Mckayla Blas NP [facility] Final Result documented in this encounter Visit Diagnoses Not on filedocumented in this encounter Care Teams Baseball Player Relationship Specialty Start Date End Date Ty Amin MD PCP - General Family Medicine 09/20/23 Mckayla Blas NP [address] [place] [address] PCP - [facility] 09/07/23 01/11/25 Mckayla Blas NP Nurse Practitioner Family Medicine 09/20/23 documented as of this encounter
--- OUTSIDE RECORDS SUMMARY | 2025-03-10 16:01 | XMS_ITS | CCD ---
Author Organization [facility] Care Team Providers Care Sap Business Objects Consultant Name Role Phone James Benavidez Primary Care Provider JAMES BENAVIDEZ Primary Care Unavailable SHENDGE, VITHAL Admitting Unavailable SHENDGE, VITHAL Attending Unavailable AICHHOLZ, MCKAYLA Primary Care Unavailable AICHHOLZ, MCKAYLA Referring Unavailable AICHHOLZ, MCKAYLA J Primary Care Physician Tico, Stephanie Unavailable OLE RAMIREZ Attending Unavailable OLE RAMIREZ Consulting Unavailable AICHHOLZ, MEAT SPECIALIST MCKAYLA Primary Care Unavailable OLE RAMIREZ Admitting Unavailable ANTONY SHRESTHA Consulting Unavailable ALONDRA ., UMBERTO Admitting Unavailable ALONDRA ., UMBERTO Attending Unavailable AICHHOLZ, MEAT SPECIALIST MCKAYLA Primary Care Unavailable AFSANEH Loera, DR BOLANOS Consulting Unavailable MARYANNE POWER Consulting Unavailable GLENN KERR Consulting Unavailable YOMAIRA KERR Consulting Unavailable HATTIE GOFF Consulting Unavailable ALONDRA ., UMBERTO Consulting Unavailable TICO, STEPHANIE Attending Unavailable TICO, STEPHANIE Consulting Unavailable AICHHOLZ, MEAT SPECIALIST MCKAYLA Primary Care Unavailable TICO, STEPHANIE Admitting Unavailable REGLA ., DR DUMONT Admitting Unavailable AICHHOLZ, MEAT SPECIALIST MCKAYLA Primary Care Unavailable REGLA ., DR DUMONT Attending Unavailable ARAUZ ., DR DUMONT Consulting Unavailable COLLIN HUERTAS Consulting Unavailable CECILIA KAUFMAN Admitting Unavailable CECILIA KAUFMAN Attending Unavailable AICHHOLZ, MEAT SPECIALIST MCKAYLA Primary Care Unavailable RAFAEL GONGORA Attending Unavailable RAFAEL GONGORA Admitting Unavailable AICHHOLZ, MEAT SPECIALIST MCKAYLA Primary Care Unavailable AICHHOLZ, MEAT SPECIALIST MCKAYLA Admitting Unavailable AICHHOLZ, MEAT SPECIALIST MCKAYLA Primary Care Unavailable AICHHOLZ, MEAT SPECIALIST MCKAYLA Attending Unavailable AICHHOLZ, MEAT SPECIALIST MCKAYLA Consulting Unavailable LAKSHMIPATHY ., NARENDRANATH Attending Anette vailable LAKSHMIPATHY ., NARENDRANATH Consulting Anette vailable LAKSHMIPATHY ., NARENDRANATH Admitting Anette vailable AICHHOLZ, MEAT SPECIALIST MCKAYLA Primary Care Unavailable VALENZUELA ., GIL Consulting Unavailable MORTENESN ., DR CHAPARRO Aguillon Attending Unavailable MORTENSEN ., DR CHAPARRO Aguillon Admitting Unavailable AICHHOLZ, MEAT SPECIALIST MCKAYLA Primary Care Unavailable VALENZUELA ., GIL Consulting Unavailable MORTENSEN ., DR CHAPARRO Aguillon Admitting Unavailable AICHHOLZ, MEAT SPECIALIST MCKAYLA Primary Care Unavailable MORTENSEN ., DR CHAPARRO Aguillon Attending Unavailable HALKER ., SUBHASH Consulting Unavailable LAKSHMIPATHY ., NARENDRANATH Admitting Anette vailable LAKSHMIPATHY ., NARENDRANATH Attending Anette vailable AICHHOLZ, MEAT SPECIALIST MCKAYLA Primary Care Unavailable MORTENSEN ., DR CHAPARRO Aguillon Attending Unavailable MORTENSEN ., DR CHAPARRO Aguillon Admitting Unavailable VALENZUELA ., GIL Consulting Unavailable AICHHOLZ, MEAT SPECIALIST MCKAYLA Primary Care Unavailable VALENZUELA ., GIL Consulting Unavailable MORTENSEN ., DR CHAPARRO Aguillon Attending Unavailable MORTENSEN ., DR CHAPARRO Aguillon Admitting Unavailable AICHHOLZ, MEAT SPECIALIST MCKAYLA Primary Care Unavailable HATTIE BRODERICK Attending Unavailable HATTIE BRODERICK Admitting Unavailable AICHHOLZ, MEAT SPECIALIST MCKAYLA Primary Care Unavailable AICHHOLZ, MEAT SPECIALIST MCKAYLA Admitting Unavailable AICHHOLZ, MEAT SPECIALIST MCKAYLA Consulting Unavailable AICHHOLZ, MEAT SPECIALIST MCKAYLA Primary Care Unavailable AICHHOLZ, MEAT SPECIALIST MCKAYLA Attending Unavailable AICHHOLZ, MEAT SPECIALIST MCKAYLA Primary Care Unavailable MISC, DR LESLIE Admitting Unavailable MISC, DR LESLIE Attending Unavailable MISC, DR LESLIE Consulting Unavailable DIAB ., MARIANO Admitting Unavailable DIAB ., MARIANO Attending Unavailable DIAB ., MARIANO Consulting Unavailable AICHHOLZ, MEAT SPECIALIST MCKAYLA Primary Care Unavailable RASTEGAR, IRCCO Consulting Unavailable AICHHOLZ, MEAT SPECIALIST MCKAYLA Admitting Unavailable AICHHOLZ, MEAT SPECIALIST MCKAYLA Primary Care Unavailable AICHHOLZ, MEAT SPECIALIST MCKAYLA Attending Unavailable AICHHOLZ, MEAT SPECIALIST MCKAYLA Consulting Unavailable DR PATRICIA VELOZ Consulting Unavailable TAMLYN ., CECILIA Attending Unavailable TAMLYN ., CECILIA Admitting Unavailable DR PATRICIA VELOZ Consulting Unavailable AICHHOLZ, MEAT SPECIALIST MCKAYLA Primary Care Unavailable TAMLYN ., CECILIA Consulting Unavailable MORTENSEN ., DR CHAPARRO Aguillon Attending Unavailable FESTUS ., DR CHAPARRO Aguillon Consulting Unavailable FESTUS ., DR CHAPARRO Aguillon Admitting Unavailable AICHHOLZ, MEAT SPECIALIST MCKAYLA Primary Care Unavailable HATTIE BRODERICK Attending Unavailable HATTIE BRODERICK Consulting Unavailable HATTIE BRODERICK Admitting Unavailable AICHHOLZ, MEAT SPECIALIST MCKAYLA Primary Care Unavailable HATTIE BAUTISTA Unavailable AICHHOLZ, SAYDA MCKAYLA Admitting Unavailable AICHHOLZ, MEAT SPECIALIST MCKAYLA Attending Unavailable AICHHOLZ, MEAT SPECIALIST MCKAYLA Consulting Unavailable AICHHOLZ, MEAT SPECIALIST MCKAYLA Primary Care Unavailable Brennan PHIPPS, Ty Primary Care Provider Brennan PHIPPS, Ty Primary Care Provider [phone] Wan RAPID OUTSOLE STITCHER, Mckayla Unavailable Aicdona RAPID OUTSOLE STITCHER, Mckayla Unavailable Elbert ARAUZ Attending Unavailable SARAH VEGA Attending Unavailable ROBERTOHOLZ, MCKAYLA Attending Unavailable RAIN SOUZA F Attending Unavailable AICHHOLZ, MCKAYLA Attending Unavailable AICHHOLZ, MCKAYLA Attending Unavailable AICHHOLZ, MCKAYLA Attending Unavailable RAIN SOUZA F Attending Unavailable AICHHOLZ, MCKAYLA Attending Unavailable RAIN SOUZA F Attending Unavailable LIBBY AHMAD F Referring Unavailable AICHHOLZ, MCKAYLA Attending Unavailable DAKOTAH BRIDGES Attending Unavailable AMI ORO Attending Unavailable Flynn Urias DPM Attending Unavailab lolita Blas RAPID OUTSOLE STITCHER, Mckayla Unavailable Allergies Allergy Classification Reported Allergen(s) Allergy Type Date of Onset Reaction(s) Facility (1 source) No Known Medication Allergies; Translations: [No Known Medication Allergies] Propensity to adverse reactions (disorder) [facility] Repository Medications Current Medications Medication Drug [...] Start Date: 02/06/22 Status: Ordered HYDROcodone-acet aminophen ([place]) 5-325 MG tablet 1 tablet 3 (three) times a day as needed for severe pain. Active take 1 tablet by vandana twice daily as needed [place] 5-325 MG 1 tablet as needed Orally [...] every week ergocalciferol (Vitamin D2) 1.25 MG (86280 UT) capsule Indications: Vitamin D deficiency, unspecified Take 1 capsule (1.25 mg) by mouth 1 (one) time per week 12 capsule 1 01/16/2025 04/10/2025 Active Start: 10-27-2024 End: 01-19-2025 take 1 capsule by mouth two times weekly ergocalciferol (Vitamin D2) 1.25 MG (86601 UT) capsule Indications: Vitamin D deficiency, unspecified Take 1 capsule (1.25 mg) by mouth 2 (two) times a week 24 capsule 1 10/27/2024 01/19/2025 Active Start: 04-06-2024 End: 10-27-2024 take 1 capsule by mouth every week ergocalciferol (Vitamin D2) 1.25 MG (24362 UT) capsule Indications: Vitamin D deficiency, unspecified [...] Active sodium hypochlorite 2.5 mg/ml topical solution (14 sources) Start: 09-24-2024 HySept 0.25 % external [...] pen injector (20 sources) Insulin Analog Start: 02-16-2025 insulin glargi ne (Lantus SoloStar) 100 UNIT/ML pen Indications: Type 2 diabetes mellitus with hyperglycemia, with long-term current use of insulin (HCC) INJECT 58 UNITS SUBCUTANEOUSLY TWICE A DAY 105 mL 2 02/16/2025 Active Start: 01-29-2025 End: 07-28-2025 inject 58 [IU] [...] day Active predniSONE 10 mg oral tablet (11 sources) Start: 12-05-2024 predniSONE (De ltasone) 10 [...] mg / trimethoprim 160 mg oral tablet (15 sources) Dihydrofolate Reductase Inhibitor Antibacterial, Sulfonamide Antimicrobial [...] 15 MG/0.5ML solution auto-injector (20 sources) Start: 02-27-2025 inject 15 mg by subcutaneous injection every week Tirzepatide (Mounjaro) 15 MG/0.5ML solution auto-injector Indications: Type 2 diabetes mellitus with other circulatory complications (HCC) Inject 15 mg under the skin 1 (one) time per week 6 mL 1 02/27/2025 Active Start: 12-30-2024 inject 15 mg by subc utaneous injection [...] Partial Cholinergic Nicotinic Agonist Start: 12-20-19 End: 03-09-20 take 1 tablet by mouth in the morning varenicline (Chantix) 1 MG tablet Indications: Tobacco user , Encounter for smoking cessation counseling TAKE 1 TABLET BY MOUTH IN THE MORNING AND 1 TABLET BEFORE BEDTIME. TAKE WITH FULL GLASS OF WATER. 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; Translations: [CARE HOME CURRENT USE OF ASPIRIN] Onset: 12-05-2022 Episodic Other aftercare (6 sources) Long-term current use of insulin; Translations: [group home (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] 05-27-2024 Episodic [...] Chronic Other diseases of veins and lymphatics (18 sources) Chronic peripheral venous hypertension; Translations: [Chronic venous hypertension (idiopathic) with ulcer of bilateral lower extremity] Onset: 08-27-2024 08-27-2024 Chronic Other diseases of veins and lymphatics (11 sources) Stasis dermatitis and venous ulcer of [...] UNS] Onset: 11-25-2022 Episodic Residual codes; unclassified (20 sources) Tobacco user; Translations: [Tobacco use] Onset: 09-17-2023 Resolved: 10-27-2024 09-17-2023 Episodic Skin and subcutaneous tissue infections (17 sources) Cellulitis of right lower limb; Translations: [Cutaneous abscess of left axilla] Onset: 07-18-2022 Episodic Substance-related disorders (20 sources) Nicotine dependence; Translations: [Nicotine dependence, unspecified, uncomplicated] Onset: 02-06-2022 Chronic Comment on above: Added secondary to d ocumentation in Social History. 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] Onset: 08-27-2024 [...] Range Facility Orders Onlyon 01-30-2025 Orders Only [id number] Mitzi Macias Gilberto 1970 F Date Provider Department Center 01/30/2025 [id number], HISTORICAL [facility] Family History Problem Relation Age of Onset Heart attack Paternal Grandmother Family Status - Relation Status Age at Mother Father Paternal Grandmother Normal [facility] CA ECHO DOPPLER COMPLETEon 0 01-29-[address] [address] Cardiology Report Signed Patient: MITZI MACIAS MR#: [id number] : 1970 Acct:[id number] Age/Sex: 54 / F ADM Date: 01/29/25 Loc: CARD Attending Dr: AMI ORO APRN Ordering Physician: AMI ORO APRN Date of Service: 01/29/25 Procedure(s): CA echo doppler complete Accession Number(s): [id number] cc: Mckayla Blas RAPID OUTSOLE STITCHER; AMI ORO APRN Patient Name: MITZI MACIAS MR#: [id number] : 1970 Exam Date: 01/29/2025 Ordering Doctor: AMI ORO MEAT SPECIALIST ECHOCARDIOGRAM REPORT PROCEDURE: CA ECHO DOPPLER COMPLETE [...] HERRERA Signed By: 01/29/251839 DD/ 39 TD/TT: Signal Timer: [facility] Radiology, Radiologist, MD - 01/29/2025 [place] [address] Cardiology Report Signed Patient: MITZI MACIAS MR#: [id number] : 1970 Acct:[id number] Age/Sex: 54 / F ADM Date: 01/29/25 Loc: CARD Attending Dr: AMI ORO APRN Ordering Physician: AMI ORO APRN Date of Service: 01/29/25 Procedure(s): CA echo doppler complete Accession Number(s): [id number] cc: Mckayla Blas RAPID OUTSOLE STITCHER; AMI ORO APRN Patient Name: MITZI MACIAS MR#: [id number] : 1970 Exam Date: 01/29/2025 Ordering Doctor: [...] HERRERA Signed By: 01/29/251839 DD/ 39 TD/TT: Signal Timer: [facility] Radiology Study observation (narrative) [facility] CA ECHO DOPPLER COMPLETEOrde red By: Radiologist Radiology on 01-29-2025 [facility] Work Phone: Glucose (Bld) [Mass/Vol]on 0 01-29-2025 Glucose Blood, POC 121 mg/dL [facility] Laboratory - Hematology and Cell countson 01-29-2025 HbA1c (Bld) [Mass fraction] 8.4 % [facility] No Panel Informationon 01-29 Interpretation and review of laboratory results Abnormal [facility] Office Visiton 01-06-2025 Follow-up visit [id number] Mitzi Macias 1970 F Date Provider Department Center 01/06/2025 AMI SARABIA CARD Wilfredo [facility] Family History Problem Relation Age of Onset Heart attack Paternal Grandmother Family Status - Relation Status Age at Mother Father Paternal Grandmother Level of Service:74249 AL OFFICE/OUTPATIENT ESTABLISHED MOD MDM 30 MIN Reason for Visit and Comments: Congestive Heart Failure [127] Hypertension [488522] Hyperlipidemia [182] Normal [facility] 36on 10-21-2024 36 Regarding lab results from 10/08/2024: MD Mickie Merritt MA Lipids, ALT AST, and BMP are normal. HbA1c was not performed. Continue current management. LM on patient's VM. Normal [facility] Glucose (Bld) [Mass/Vol]Orde red By: Mica Sauceda on 10-08-2024 Glucose Blood, POC 97 mg/dL [facility] Laboratory - Hematology and Cell countson 10-08-2024 HbA1c (Bld) [Mass fraction] 7.4 % [facility] No Panel InformationOrdered By: Mica Sauceda on 10-08-2024 [facility]H UA (CLEAN/CATCH) MICROSC OPIC IF INDICATEon 10-08-2024 BILIRUBIN URINE Negative NEGATIVE [facility] BLOOD URINE Negative NEGATIVE [facility] Clarity (U) CLEAR CLEAR [facility] Color (U) YELLOW [facility] GLU[facility]SE [facility]INE UA Negative NEGATIVE mg/dL [facility] Interpretation and review of laboratory results Abnormal [facility] Ketones Ql (U) Negative NEGATIVE mg/dL [facility] Leukocyte esterase Test strip Ql (U) Negative [facility]GATIVE [facility] NITRITE URINE Negative [facility]GATIVE [facility] pH (U) 5.5 [pH] 5.0 - 9.0 [facility] Protein (U) [Mass/Vol] 30 mg/dL Abnormal NEG/TRACE NO [facility] SPECIFIC GRAVITY URINE >=1.030 Abnormal 1.005 - 1.025 [facility] URINE MICROSCOPIC INDICATED YES [facility] UROBILINOGEN URINE 1.0 EU/dL 0.2 - 1.0 EU/dL [facility] ALL CBC WITH AUTO DIFFon BASOPHILS ABSOLUTE AUTO 0.1 [facility] Basophils/100 WBC (Bld) 0.5 % 0.2 - 2.0 % [facility] Eosinophils/100 WBC (Bld) 1.9 % 0.9 - 7.0 % [facility] Erythrocyte distribution width (RBC) [Ratio] 14.6 % 11.0 - 15.0 % [facility] Hematocrit (Bld) [Volume fraction] 50.9 % High 36.0 - 48.0 % [facility] Hemoglobin (Bld) [Mass/Vol] 16.1 g/dL High 12.0 - 16.0 g/dL [facility] IMMATURE GRANULOCYTES ABS AUTO 0.04 High [facility] Immature granulocytes/100 WBC (Bld) 0.3 % 0.0 - 0.5 % [facility] Interpretation and review of laboratory results Abnormal [facility] LYMPHOCYTES ABSOLUTE AUTO 3.2 [facility] Lymphocytes/100 WBC (Bld) 25.1 % 20.5 - 60.0 % [facility] MCH (RBC) [Entitic mass] 29.2 pg 26.7 - 34.0 pg [facility] MCHC (RBC) [Mass/Vol] 31.6 g/dL 29.9 - 35.2 g/dL [facility] MCV (RBC) [Entitic vol] 92.2 fL 81.0 - 99.0 fL [facility] MONOCYTES ABSOLUTE AUTO 0.7 [facility] Monocytes/100 WBC (Bld) 5.2 % 1.7 - 12.0 % [facility] NEUTROPHILS ABSOLUTE AUTO 8.6 High [facility] Neutrophils/100 WBC (Bld) 67 % 43.0 - 75.0 % [facility] Platelet mean volume (Bld) [Entitic vol] 12.8 fL 9.5 - 13.5 fL [facility] TBH EO # 0.2 [facility] TBH PLT 122 Low [facility] Healthcare TBH RBC 5.52 High [facility] TBH WBC 12.8 High [facility] Healthcare Office Visiton 08-08-2024 Follow-up visit [id number] Mitzi Macias Gilberto 1970 F Date Provider Department Center 08/08/2024 [id number] BRIDGES MARIO Villalobos [facility] Family History Problem Relation Age of Onset Heart attack Paternal Grandmother Family Status - Relation Status Age at Paternal Grandmother Level of Service:69669 AL OFFICE/OUTPATIENT ESTABLISHED MOD MDM 30 MIN Reason for Visit and Comments: Congestive Heart Failure [127] - Denies chest pain, SOB, and palpitations. Hypertension [782373] Hyperlipidemia [182] LVH [Other] Edema [[id number]] - Denies worsening edema. She sees wound care for RLE ulcer. She was seeing the vein specialists here in town but they are moving to [place] in a few weeks. Normal [facility] Glucose (Bld) [Mass/Vol]Orde red By: Mica Sauceda on 05-27-2024 Glucose Blood, POC 158 mg/dL [facility] Laboratory - Hematology and Cell countson 05-27-2024 HbA1c (Bld) [Mass fraction] 9.2 % [facility] No Panel InformationOrdered By: Mica Sauceda on 05-27-2024 [facility] CREATININEon 05-12-2024 Creatinine [Mass/Vol] 0.92 mg/dL 0.55 - 1.02 mg/dL [facility] GFR/1.73 sq M.predicted CKD-EPI (S/P/Bld) [Vol rate/Area] >60 >=60 mL/min/1.73m 2 [facility] EGFR-NON AF AZERBAIJANI >60 >=60 mL/min/1.73m 2 [facility] CBC AUTO DIFFon 12-06-2022 BASO # 0.0 103/ul Normal 0.0-0.1 [facility] Comment on above: Performed By: #### C BC #### [facility] [address] [place] [address] Dr. Ashlie Hills Basophils/100 WBC (Bld) 0.1 % Critically low 0.2-2.0 [facility] Comment on above: Performed By: #### C BC #### [facility] [address] [place] [address] Dr. Ashlie Hills EO # 0.0 103/ul Normal 0.0-0.7 [facility] Comment on above: Performed By: #### C BC #### [facility] [address] [place] [address] Dr. Ashlie Hills Eosinophils/100 WBC (Bld) 0.0 % Critically low 0.9-7.0 [facility] Comment on above: Performed By: #### C BC #### [facility] [address] [place] [address] Dr. Ashlie Hills Erythrocyte distribution width (RBC) [Ratio] 14.9 % Normal 11.0-15.0 [facility] Comment on above: Performed By: #### C BC #### [facility] [address] [place] [address] Dr. Ashlie Hills Hematocrit (Bld) [Volume fraction] 46.2 % Normal 36.0-48.0 [facility] Comment on above: Performed By: #### C BC #### [facility] [address] [place] [address] Dr. Ashlie Hills Hemoglobin (Bld) [Mass/Vol] 14.7 g/dL Normal 12.0-16.0 [facility] Comment on above: Performed By: #### C BC #### [facility] [address] [place] [address] Dr. Ashlie Hills IG # 0.06 10e3/ul Critically high 0.00-0.03 [facility] Comment on above: Performed By: #### C BC #### [facility] [address] [place] [address] Dr. Ashlie Hills IG % 0.4 % Normal 0.0-0.5 [facility] Comment on above: Performed By: #### C BC #### [facility] [address] [place] [address] Dr. Ashlie Hills LYMPH # 1.3 103/ul Normal 1.2-3.8 [facility] Comment on above: Performed By: #### C BC #### [facility] [address] [place] [address] Dr. Ashlie Hills Lymphocytes/100 WBC (Bld) 9.4 % Critically low 20.5-60.0 [facility] Comment on above: Performed By: #### C BC #### [facility] [address] [place] [address] Dr. Ashlie Hills MANUAL DIFF REQ NO Normal [facility] Comment on above: Performed By: #### C BC #### [facility] [address] [place] [address] Dr. Ashlie Hills MCH (RBC) [Entitic mass] 28.4 pg Normal 26.7-34.0 [facility] Comment on above: Performed By: #### C BC #### [facility] [address] [place] [address] Dr. Ashlie Hills MCHC (RBC) [Mass/Vol] 31.8 g/dL Normal 29.9-35.2 [facility] Comment on above: Performed By: #### C BC #### [facility] [address] [place] [address] Dr. Ashlie Hills MCV (RBC) [Entitic vol] 89.4 fL Normal 81.0-99.0 [facility] Comment on above: Performed By: #### C BC #### [facility] [address] [place] [address] Dr. Ashlie Hills MONO # 0.5 103/ul Normal 0.3-0.8 [facility] Comment on above: Performed By: #### C BC #### [facility] [address] [place] [address] Dr. Ashlie Hills Monocytes/100 WBC (Bld) 3.4 % Normal 1.7-12.0 [facility] Comment on above: Performed By: #### C BC #### [facility] [address] [place] [address] Dr. Ashlie Hills NEUT # 11.8 103/ul Critically high 1.4-6.5 [facility] Comment on above: Performed By: #### C BC #### [facility] [address] [place] [address] Dr. Ashlie Hills Neutrophils/100 WBC (Bld) 86.7 % Critically high 43.0-75.0 [facility] Comment on above: Performed By: #### C BC #### [facility] [address] [place] [address] Dr. Ashlie Hills Platelet mean volume (Bld) [Entitic vol] 12.6 fL Normal 9.5-13.5 [facility] Comment on above: Performed By: #### C BC #### [facility] [address] [place] [address] Dr. Ashlie Hills PLT 133 103/ul Critically low 150-450 [facility] Comment on above: Performed By: #### C BC #### [facility] [address] [place], [place] [id number] Dr. Ashlie Hills RBC 5.17 106/ul Normal 4.20-5.40 [facility] Comment on above: Performed By: #### C BC #### [facility] [address] [place] [address] Dr. Ashlie Hills WBC 13.6 103/ul Critically high 4.0-11.0 [facility] Comment on above: Performed By: #### C BC #### [facility] [address] [address] [address] Ashlie Hills MAGNESIUMon 12-06-2022 Magnesium [Mass/Vol] 2.2 mg/dL Normal 1.8-2.4 [facility] Comment on above: Performed By: #### I NFLUAB #### [facility] [address] [place] [address] Dr. Ashlie Hills POINT OF CARE GLUCOSEon 11-08 Glucose [Mass/Vol] 340 mg/dL Critically high 74-106 [facility] Comment on above: Performed By: #### P OCGLUC #### [facility] [address] [place] [address] Dr. Ashlie Hills Glucose [Mass/Vol] 276 mg/dL Critically high -106 [facility] Comment on above: Performed By: #### C BC #### [facility] [address] [place] [address] Dr. Ashlie Hills Glucose [Mass/Vol] 333 mg/dL Critically high -106 [facility] Comment on above: Performed By: #### C BC #### [facility] [address] [place] [address] Dr. Ashlie Hills PROF CHEM 8 (BAS METB)on Anion gap [Moles/Vol] 10.9 mmol/L Normal [facility] Comment on above: Performed By: #### I NFLUAB #### [facility] [address] [place] [address] Dr. Ashlie Hills Calcium [Mass/Vol] 9.3 mg/dL Normal 8.5-10.1 [facility] Comment on above: Performed By: #### I NFLUAB #### [facility] [address] [place] [address] Dr. Ashlie Hills Chloride [Moles/Vol] 103 mmol/L Normal 98-107 [facility] Comment on above: Performed By: #### I NFLUAB #### [facility] [address] [place] [address] Dr. Ashlie Hills CO2 [Moles/Vol] 31.2 mmol/L Normal 21.0-32.0 [facility] Comment on above: Performed By: #### I NFLUAB #### [facility] [address] [place] [address] Dr. Ashlie Hills Creatinine [Mass/Vol] 0.96 mg/dL Normal 0.55-1.02 [facility] Comment on above: Performed By: #### I NFLUAB #### [facility] [address] [place] [address] Dr. Ashlie Hills EGFR-AF AZERBAIJANI >60 Normal >=60 [facility] Comment on above: Performed By: #### I NFLUAB #### [facility] [address] [place] [address] Dr. Ashlie Hills EGFR-NON AF AZERBAIJANI >60 Normal >=60 [facility] Comment on above: Performed By: #### I NFLUAB #### [facility] [address] [address] [address] Ashlie Hills Glucose [Mass/Vol] 288 mg/dL Critically high 74-106 [facility] Comment on above: Performed By: #### I NFLUAB #### [facility] [address] [place] [address] Dr. Ashlie Hills Potassium [Moles/Vol] 5.1 mmol/L Normal 3.5-5.1 [facility] Comment on above: Performed By: #### I NFLUAB #### [facility] [address] [place] [address] Dr. Ashlie Hills Sodium [Moles/Vol] 140 mmol/L Normal 136-145 [facility] Comment on above: Performed By: #### I NFLUAB #### [facility] [address] [place] [address] Dr. Ashlie Hills Urea nitrogen [Mass/Vol] 30.0 mg/dL Critically high 7.0-18.0 [facility] Comment on above: Performed By: #### I NFLUAB #### [facility] [address] [place] [address] Dr. Ashlie Hills Urea nitrogen/Creatinine [Mass ratio] 31.2 mg/mg Normal [facility] Comment on above: Performed By: #### I NFLUAB #### [facility] [address] [place] [address] Dr. Ashlie Hills CBC AUTO DIFFon 12-05-2022 BASO # 0.0 103/ul Normal 0.0-0.1 [facility] Comment on above: Performed By: #### C BC #### [facility] [address] [place] [address] Dr. Ashlie Hills Basophils/100 WBC (Bld) 0.4 % Normal 0.2-2.0 [facility] Comment on above: Performed By: #### C BC #### [facility] [address] [place] [address] Dr. Ashlie Hills EO # 0.0 103/ul Normal 0.0-0.7 [facility] Comment on above: Performed By: #### C BC #### [facility] [address] [place] [address] Dr. Ashlie Hills Eosinophils/100 WBC (Bld) 0.0 % Critically low 0.9-7.0 [facility] Comment on above: Performed By: #### C BC #### [facility] [address] [place] [address] Dr. Ashlie Hills Erythrocyte distribution width (RBC) [Ratio] 14.8 % Normal 11.0-15.0 [facility] Comment on above: Performed By: #### C BC #### [facility] [address] [place] [address] Dr. Ashlie Hills Hematocrit (Bld) [Volume fraction] 49.9 % Critically high 36.0-48.0 [facility] Comment on above: Performed By: #### C BC #### [facility] [address] [place] [address] Dr. Ashlie Hills Hemoglobin (Bld) [Mass/Vol] 15.7 g/dL Normal 12.0-16.0 [facility] Comment on above: Performed By: #### C BC #### [facility] [address] [place] [address] Dr. Ashlie Hills IG # 0.04 10e3/ul Critically high 0.00-0.03 [facility] Comment on above: Performed By: #### C BC #### [facility] [address] [place] [address] Dr. Ashlie Hills IG % 0.5 % Normal 0.0-0.5 [facility] Comment on above: Performed By: #### C BC #### [facility] [address] [place] [address] Dr. Ashlie Hills LYMPH # 1.1 103/ul Critically low 1.2-3.8 [facility] Comment on above: Performed By: #### C BC #### [facility] [address] [place] [address] Dr. Ashlie Hills Lymphocytes/100 WBC (Bld) 12.7 % Critically low 20.5-60.0 [facility] Comment on above: Performed By: #### C BC #### [facility] [address] [place] [address] Dr. Ashlie Hills MANUAL DIFF REQ NO Normal [facility] [place] Comment on above: Performed By: #### C BC #### [facility] [address] [place] [address] Dr. Ashlie Hills MCH (RBC) [Entitic mass] 28.1 pg Normal 26.7-34.0 [facility] Comment on above: Performed By: #### C BC #### [facility] [address] [place] [address] Dr. Ashlie Hills MCHC (RBC) [Mass/Vol] 31.5 g/dL Normal 29.9-35.2 [facility] Comment on above: Performed By: #### C BC #### [facility] [address] [place] [address] Dr. Ashlie Hills MCV (RBC) [Entitic vol] 89.3 fL Normal 81.0-99.0 [facility] Comment on above: Performed By: #### C BC #### [facility] [address] [place] [address] Dr. Ashlie Hills MONO # 0.1 103/ul Critically low 0.3-0.8 [facility] Comment on above: Performed By: #### C BC #### [facility] [address] [place] [address] Dr. Ashlie Hills Monocytes/100 WBC (Bld) 1.3 % Critically low 1.7-12.0 [facility] Comment on above: Performed By: #### C BC #### [facility] [address] [place] [address] Dr. Ashlie Hills NEUT # 7.2 103/ul Critically high 1.4-6.5 [facility] [place] Comment on above: Performed By: #### C BC #### [facility] [address] [place] [address] Dr. Ashlie Hills Neutrophils/100 WBC (Bld) 85.1 % Critically high 43.0-75.0 [facility] Comment on above: Performed By: #### C BC #### [facility] [address] [place] [address] Dr. Ashlie Hills Platelet mean volume (Bld) [Entitic vol] 12.2 fL Normal 9.5-13.5 [facility] Comment on above: Performed By: #### C BC #### [facility] [address] [place] [address] Dr. Ashlie Hills PLT 116 103/ul Critically low 150-450 [facility] Comment on above: Performed By: #### C BC #### [facility] [address] [place] [address] Dr. Ashlie Hills RBC 5.59 106/ul Critically high 4.20-5.40 [facility] Comment on above: Performed By: #### C BC #### [facility] [address] [place] [address] Dr. Ashlie Hills WBC 8.5 103/ul Normal 4.0-11.0 [facility] Comment on above: Performed By: #### C BC #### [facility] [address] [place] [address] Dr. Ashlie Hills CTA CHEST WO W CONon 12-05-2 023 CTA CHEST MARGA MEYER EXAMINATION: CTA CHEST MARGA MEYER, 12/04/2022 7:57 PM PDT HISTORY: SHORTNESS OF [...] by: HATTIE GOFF Date: 2022-12-05 01:52 Normal [facility] MAGNESIUMon 12-05-2022 Magnesium [Mass/Vol] 2.1 mg/dL Normal 1.8-2.4 [facility] Comment on above: Performed By: #### P OCGLUC #### [facility] [address] [address] [address] Ashlie Hills POINT OF CARE GLUCOSEon 11-08 Glucose [Mass/Vol] 293 mg/dL Critically high 74-106 [facility] Comment on above: Performed By: #### P OCGLUC #### [facility] [address] [address] [address] Ashlie Hills Glucose [Mass/Vol] 269 mg/dL Critically high 74-106 [facility] Comment on above: Performed By: #### P OCGLUC #### [facility] [address] [address] [address] Ashlie Hills Glucose [Mass/Vol] 223 mg/dL Critically high 74-106 [facility] Comment on above: Performed By: #### C VDAGS #### [facility] [address] [address] [address] Ashlie Hills PROF CHEM 8 (BAS METB)on Anion gap [Moles/Vol] 11.6 mmol/L Normal [facility] Comment on above: Performed By: #### P OCGLUC #### [facility] [address] [place] [address] Dr. Ashlie Hills Calcium [Mass/Vol] 9.2 mg/dL Normal 8.5-10.1 [facility] Comment on above: Performed By: #### P OCGLUC #### [facility] [address] [place] [address] Dr. Ashlie Hills Chloride [Moles/Vol] 102 mmol/L Normal 98-107 [facility] Comment on above: Performed By: #### P OCGLUC #### [facility] [address] [place] [address] Dr. Ashlie Hills CO2 [Moles/Vol] 28.7 mmol/L Normal 21.0-32.0 [facility] Comment on above: Performed By: #### P OCGLUC #### [facility] [address] [place] [address] Dr. Ashlie Hills Creatinine [Mass/Vol] 1.04 mg/dL Critically high 0.55-1.02 [facility] Comment on above: Performed By: #### P OCGLUC #### [facility] [address] [place] [address] Dr. Ashlie Hills EGFR-AF AZERBAIJANI >60 Normal >=60 [facility] Comment on above: Performed By: #### P OCGLUC #### [facility] [address] [place] [address] Dr. Ashlie Hills EGFR-NON AF AZERBAIJANI 56 mL/min/1.73m2 Critically low >=60 [facility] Comment on above: Performed By: #### P OCGLUC #### [facility] [address] [address] [address] Ashlie Hills Glucose [Mass/Vol] 231 mg/dL Critically high 74-106 [facility] Comment on above: Performed By: #### P OCGLUC #### [facility] [address] [address] [address] Ashlie Hills Potassium [Moles/Vol] 4.3 mmol/L Normal 3.5-5.1 [facility] Comment on above: Performed By: #### P OCGLUC #### [facility] [address] [place] [address] Dr. Ashlie Hills Sodium [Moles/Vol] 138 mmol/L Normal 136-145 [facility] Comment on above: Performed By: #### P OCGLUC #### [facility] [address] [place] [address] Dr. Ashlie Hills Urea nitrogen [Mass/Vol] 17.0 mg/dL Normal 7.0-18.0 [facility] Comment on above: Performed By: #### P OCGLUC #### [facility] [address] [place] [address] Dr. Ashlie Hills Urea nitrogen/Creatinine [Mass ratio] 16.3 mg/mg Normal [facility] Comment on above: Performed By: #### P OCGLUC #### [facility] [address] [place] [address] Dr. Ashlie Hills RESPIRATORY PANEL PLUSon Adenovirus Not detected Normal NOT DETECTED [facility] Comment on above: Performed By: #### C VDAGS #### [facility] [address] [place] [address] Dr. Ashlie Hills B. Parapertusis Not detected Normal NOT DETECTED [facility] Comment on above: Performed By: #### C VDAGS #### [facility] [address] [place] [address] Dr. Ashlie Hills B. Pertussis Not detected Normal NOT DETECTED [facility] Comment on above: Performed By: #### C VDAGS #### [facility] [address] [place] [address] Dr. Ashlie Hills Chlamydia Pneumoniae Not detected Normal NOT DETECTED [facility] Comment on above: Performed By: #### C VDAGS #### [facility] [address] [place] [address] Dr. Ashlie Hills Coronavirus 229E Not detected Normal NOT DETECTED [facility] Comment on above: Performed By: #### C VDAGS #### [facility] [address] [place] [address] Dr. Ashlie Hills Coronavirus HKU1 Not detected Normal NOT DETECTED [facility] Comment on above: Performed By: #### C VDAGS #### [facility] [address] [place] [address] Dr. Ashlie Hills Coronavirus NL63 Not detected Normal NOT DETECTED [facility] Comment on above: Performed By: #### C VDAGS #### [facility] [address] [place] [address] Dr. Ashlie Hills Coronavirus OC43 Not detected Normal NOT DETECTED [facility] Comment on above: Performed By: #### C VDAGS #### [facility] [address] [place] [address] Dr. Ashlie Hills Influenza A H1 Not detected Normal NOT DETECTED [facility] Comment on above: Performed By: #### C VDAGS #### [facility] [address] [place] [address] Dr. Ashlie Hills Influenza A H1 2009 Not detected Normal NOT DETECTED [facility] Comment on above: Performed By: #### C VDAGS #### [facility] [address] [place] [address] Dr. Ashlie Hills Influenza A H3 Not detected Normal NOT DETECTED [facility] Comment on above: Performed By: #### C VDAGS #### [facility] [address] [place] [address] Dr. Ashlie Hills Influenza B Not detected Normal NOT DETECTED [facility] Comment on above: Performed By: #### C VDAGS #### [facility] [address] [address] [address] Ashlie Hills Metapneumovirus Not detected Normal NOT DETECTED [facility] Comment on above: Performed By: #### C VDAGS #### [facility] [address] [address] [address] Ashlie Hills Mycoplas. Pneumoniae Not detected Normal NOT DETECTED [facility] Comment on above: Performed By: #### C VDAGS #### [facility] [address] [address] [address] Ashlie Hills Parainfluenza 1 Not detected Normal NOT DETECTED [facility] Comment on above: Performed By: #### C VDAGS #### [facility] [address] [address] [address] Ashlie Hills Parainfluenza 2 Not detected Normal NOT DETECTED [facility] Comment on above: Performed By: #### C VDAGS #### [facility] [address] [place] [address] Dr. Ashlie Hills Parainfluenza 3 Detected Abnormal NOT DETECTED [facility] Comment on above: Performed By: #### C VDAGS #### [facility] [address] [address] [address] Ashlie Hills Parainfluenza 4 Not detected Normal NOT DETECTED [facility] Comment on above: Performed By: #### C VDAGS #### [facility] [address] [address] [address] Ashlie Hills Rhino/Enterovirus Not detected Normal NOT DETECTED [facility] Comment on above: Performed By: #### C VDAGS #### [facility] [address] [address] [address] Ashlie DE PAZ Header 1 RESPIRATORY PANEL: VIRUSES Normal [facility] Comment on above: Performed By: #### C VDAGS #### [facility] [address] [address] [address] Ashlie DE PAZ Header 2 RESPIRATORY PANEL: BACTERIA Normal [facility] Comment on above: Performed By: #### C VDAGS #### [facility] [address] [place] [address] Dr. Ashlie Hills RSV Not detected Normal NOT DETECTED [facility] Comment on above: Performed By: #### C VDAGS #### [facility] [address] [place] [address] Dr. Ashlie Hills SARS-CoV-2 (COVID-19) RNA MADDY+probe Ql (Unsp spec) Not detected Normal NOT DETECTED [facility] Comment on above: Performed By: #### C VDAGS #### [facility] [address] [place] [address] Dr. Ashlie Hills XR CHEST 1 Von [...] MARYANNE POWER Date: 2022-12-04 22:23 Normal [facility] BLOOD GASES BTYon 12-04-2022 02 MODE ROOM AIR Normal [facility] Comment on above: Performed By: #### C BC #### [facility] [address] [place] [address] Dr. Ashlie Hills ALLENS TEST Positive Normal [facility] Comment on above: Performed By: #### C BC #### [facility] [address] [place] [address] Dr. Ashlie Hills Base excess Calc (Bld) [Moles/Vol] 5.4 mmol/L Critically high -2.0-2.0 [facility] Comment on above: Performed By: #### C BC #### [facility] [address] [place] [address] Dr. Ashlie Hills BIPAP PRESSURE Normal [facility] Comment on above: Performed By: #### C BC #### [facility] [address] [place] [address] Dr. Ashlie Hills CPAP [facility] Comment on above: Performed By: #### C BC #### [facility] [address] [address] [address] Ashlie Hills FIO2 Normal [facility] Comment on above: Performed By: #### C BC #### [facility] [address] [place] [address] Dr. Ashlie Hills HCO3 (Bld) [Moles/Vol] 30.8 mmol/L Critically high 22.0-26 .0 [facility] Comment on above: Performed By: #### C BC #### [facility] [address] [place] [address] Dr. Ashlie Hills LPM [facility] Comment on above: Performed By: #### C BC #### [facility] [address] [place] [address] Dr. Ashlie Hills MINUTE VOLUME Normal [facility] Comment on above: Performed By: #### C BC #### [facility] [address] [place] [address] Dr. Ashlie Hills Oxygen (Bld) [Partial pressure] 46.3 mm[Hg] Critically low 80.0-100.0 [facility] Comment on above: Performed By: #### C BC #### [facility] [address] [place] [address] Dr. Ashlie Hills Oxygen saturation in Blood 83.9 % Critically low 95.0-100.0 [facility] Comment on above: Performed By: #### C BC #### [facility] [address] [place] [address] Dr. Ashlie Hills PCO2 54.2 mmHg Critically high 35.0-45.0 [facility] Comment on above: Performed By: #### C BC #### [facility] [address] [place] [address] Dr. Ashlie Hills PEEP [facility] Comment on above: Performed By: #### C BC #### [facility] [address] [place] [address] Dr. Ashlie Hills pH (Bld) 7.363 [pH] Normal 7.350-7.450 [facility] Comment on above: Performed By: #### C BC #### [facility] [address] [place] [address] Dr. Ashlie Hills [facility] Comment on above: Performed By: #### C BC #### [facility] [address] [place] [address] Dr. Ashlie Hills [facility] Comment on above: Performed By: #### C BC #### [facility] [address] [place] [address] Dr. Ashlie Hills PUNCTURE SITE LR [facility] Comment on above: Performed By: #### C BC #### [facility] [address] [place] [address] Dr. Ashlie Hills [facility] Comment on above: Performed By: #### C BC #### [facility] [address] [place] [address] Dr. Ashlie Hills [facility] Comment on above: Performed By: #### C BC #### [facility] [address] [place] [address] Dr. Ashlie Hills [facility] Comment on above: Performed By: #### C BC #### [facility] [address] [place] [address] Dr. Ashlie Hills BNPon 12-04-2022 Natriuretic peptide B (Bld) [Mass/Vol] 76.0 pg/mL Normal <=900.0 [facility] Comment on above: Performed By: #### P OCGLUC #### [facility] [address] [place] [address] Dr. Ashlie Hills CBC AUTO DIFFon 12-04-2022 BASO # 0.1 103/ul Normal 0.0-0.1 [facility] Comment on above: Performed By: #### C BC #### [facility] [address] [place] [address] Dr. Ashlie Hills Basophils/100 WBC (Bld) 0.6 % Normal 0.2-2.0 [facility] Comment on above: Performed By: #### C BC #### [facility] [address] [place] [address] Dr. Ashlie Hills EO # 0.2 103/ul Normal 0.0-0.7 [facility] Comment on above: Performed By: #### C BC #### [facility] [address] [place] [address] Dr. Ashlie Hills Eosinophils/100 WBC (Bld) 1.9 % Normal 0.9-7.0 [facility] Comment on above: Performed By: #### C BC #### [facility] [address] [place] [address] Dr. Ashlie Hlils Erythrocyte distribution width (RBC) [Ratio] 15.0 % Normal 11.0-15.0 [facility] Comment on above: Performed By: #### C BC #### [facility] [address] [place] [address] Dr. Ashlie Hills Hematocrit (Bld) [Volume fraction] 49.1 % Critically high 36.0-48.0 [facility] Comment on above: Performed By: #### C BC #### [facility] [address] [place] [address] Dr. Ashlie Hills Hemoglobin (Bld) [Mass/Vol] 15.6 g/dL Normal 12.0-16.0 [facility] Comment on above: Performed By: #### C BC #### [facility] [address] [place] [address] Dr. Ashlie Hills IG # 0.02 10e3/ul Normal 0.00-0.03 [facility] Comment on above: Performed By: #### C BC #### [facility] [address] [place] [address] Dr. Ashlie Hills IG % 0.2 % Normal 0.0-0.5 [facility] Comment on above: Performed By: #### C BC #### [facility] [address] [place] [address] Dr. Ashlie Hills LYMPH # 2.8 103/ul Normal 1.2-3.8 [facility] Comment on above: Performed By: #### C BC #### [facility] [address] [place] [address] Dr. Ashlie Hills Lymphocytes/100 WBC (Bld) 29.9 % Normal 20.5-60.0 [facility] Comment on above: Performed By: #### C BC #### [facility] [address] [place] [address] Dr. Ashlie Hills MANUAL DIFF REQ NO Normal [facility] Comment on above: Performed By: #### C BC #### [facility] [address] [place] [address] Dr. Ashlie Hills MCH (RBC) [Entitic mass] 28.5 pg Normal 26.7-34.0 [facility] Comment on above: Performed By: #### C BC #### [facility] [address] [place] [address] Dr. Ashlie Hilsl MCHC (RBC) [Mass/Vol] 31.8 g/dL Normal 29.9-35.2 [facility] Comment on above: Performed By: #### C BC #### [facility] [address] [place] [address] Dr. Ashlie Hills MCV (RBC) [Entitic vol] 89.8 fL Normal 81.0-99.0 [facility] Comment on above: Performed By: #### C BC #### [facility] [address] [place] [address] Dr. Ashlie Hills MONO # 1.0 103/ul Critically high 0.3-0.8 [facility] Comment on above: Performed By: #### C BC #### [facility] [address] [place] [address] Dr. Ashlie Hills Monocytes/100 WBC (Bld) 10.6 % Normal 1.7-12.0 [facility] Comment on above: Performed By: #### C BC #### [facility] [address] [place] [address] Dr. Ashlie Hills NEUT # 5.3 103/ul Normal 1.4-6.5 [facility] Comment on above: Performed By: #### C BC #### [facility] [address] [address] [address] Ashlie Hills Neutrophils/100 WBC (Bld) 56.8 % Normal 43.0-75.0 [facility] Comment on above: Performed By: #### C BC #### [facility] [address] [place] [address] Dr. Ashlie Hills Platelet mean volume (Bld) [Entitic vol] 12.5 fL Normal 9.5-13.5 [facility] Comment on above: Performed By: #### C BC #### [facility] [address] [place] [address] Dr. Ashlie Hills PLT 109 103/ul Critically low 150-450 [facility] Comment on above: Performed By: #### C BC #### [facility] [address] [place] [address] Dr. Ashlie Hills RBC 5.47 106/ul Critically high 4.20-5.40 [facility] Comment on above: Performed By: #### C BC #### [facility] [address] [place] [address] Dr. Ashlie Hills WBC 9.4 103/ul Normal 4.0-11.0 [facility] Comment on above: Performed By: #### C BC #### [facility] [address] [place] [address] Dr. Ashlie Hills PROF 14(COMP METB)on 023 Albumin [Mass/Vol] 2.9 g/dL Critically low 3.4-5.0 [facility] Comment on above: Performed By: #### C BC #### [facility] [address] [place] [address] Dr. Ashlie Hills Albumin/Globulin [Mass ratio] 0.6 {ratio} Normal [facility] Comment on above: Performed By: #### C BC #### [facility] [address] [place] [address] Dr. Ashlie Hills ALP [Catalytic activity/Vol] 64 U/L Normal 46-116 [facility] Comment on above: Performed By: #### C BC #### [facility] [address] [place] [address] Dr. Ashlie Hills ALT [Catalytic activity/Vol] 16 U/L Normal 14-59 [facility] Comment on above: Performed By: #### C BC #### [facility] [address] [address] [address] Ashlie Hills Anion gap [Moles/Vol] 9.6 mmol/L Normal [facility] Comment on above: Performed By: #### C BC #### [facility] [address] [address] [address] Ashlie Hills AST [Catalytic activity/Vol] 16 U/L Normal 15-37 [facility] Comment on above: Performed By: #### C BC #### [facility] [address] [place] [address] Dr. Ashlie Hills Bilirubin [Mass/Vol] 0.5 mg/dL Normal 0.2-1.0 [facility] Comment on above: Performed By: #### C BC #### [facility] [address] [place] [address] Dr. Ashlie Hills Calcium [Mass/Vol] 8.7 mg/dL Normal 8.5-10.1 [facility] Comment on above: Performed By: #### C BC #### [facility] [address] [place] [address] Dr. Ashlie Hills Chloride [Moles/Vol] 103 mmol/L Normal 98-107 [facility] Comment on above: Performed By: #### C BC #### [facility] [address] [place] [address] Dr. Ashlie Hills CO2 [Moles/Vol] 30.7 mmol/L Normal 21.0-32.0 [facility] Comment on above: Performed By: #### C BC #### [facility] [address] [place] [address] Dr. Ashlie Hills Creatinine [Mass/Vol] 0.96 mg/dL Normal 0.55-1.02 [facility] Comment on above: Performed By: #### C BC #### [facility] [address] [place] [address] Dr. Ashlie Hills EGFR-AF AZERBAIJANI >60 Normal >=60 [facility] Comment on above: Performed By: #### C BC #### [facility] [address] [address] [address] Ashlie Hills EGFR-NON AF AZERBAIJANI >60 Normal >=60 [facility] Comment on above: Performed By: #### C BC #### [facility] [address] [address] [address] Ashlie Hills Globulin (S) [Mass/Vol] 4.7 g/dL Normal [facility] Comment on above: Performed By: #### C BC #### [facility] [address] [address] [address] Ashlie Hills Glucose [Mass/Vol] 170 mg/dL Critically high 74-106 [facility] Comment on above: Performed By: #### C BC #### [facility] [address] [address] [address] Ashlie Hills Potassium [Moles/Vol] 4.3 mmol/L Normal 3.5-5.1 [facility] Comment on above: Performed By: #### C BC #### [facility] [address] [address] [address] Ashlie Hills Protein [Mass/Vol] 7.6 g/dL Normal 6.4-8.2 [facility] Comment on above: Performed By: #### C BC #### [facility] [address] [address] [address] Ashlie Hills Sodium [Moles/Vol] 139 mmol/L Normal 136-145 [facility] Comment on above: Performed By: #### C BC #### [facility] [address] [address] [address] Ashlie Hills Urea nitrogen [Mass/Vol] 16.0 mg/dL Normal 7.0-18.0 [facility] Comment on above: Performed By: #### C BC #### [facility] [address] [address] [address] Ashlie Hills Urea nitrogen/Creatinine [Mass ratio] 16.7 mg/mg Normal [facility] Comment on above: Performed By: #### C BC #### [facility] [address] [place] [address] Dr. Ashlie Hills SYMPTOMATIC COVID-19 ANTIGEN on 12-04-2022 EUA Statement SEE BELOW Normal [facility] Comment on above: Result Comment: This [...] sooner. Performed By: #### C VDAGS #### [facility] [address] [place] [address] Dr. Ashlie Hills SARS-CoV-2 (COVID-19) RNA MADDY+probe Ql (Unsp spec) Negative Normal NEGATIVE [facility] Comment on above: Performed By: #### C VDAGS #### [facility] [address] [place] [address] Dr. Ashlie Hills TROPONIN, HIGH SENSITIVITYon 12-04-2022 HSTROP 8.9 pg/mL Normal 4.0-51.3 [facility] Comment on above: Result Comment: CUT- OFF POINTS HAVE BEEN ESTABLISHED BASED ON THE FOURTH UNIVERSAL DEFINITIONS OF MYOCARDIAL INFARCTION. THE UPPER REFERENCE LIMIT (URL) OF TROPONIN, DEFINED THE 99TH PERCENTILE OF cTnI DISTRIBUTION IN A REFERENCE POPULATION, HAS BEEN CONFIRMED THE DECISION THRESHOLD FOR KS DIAGNOSIS. Performed By: #### P OCGLUC #### [facility] [address] [place] [address] Dr. Ashlie Hills MICROALBUMIN, RAND URon - mALB 35.8 mg/dL Critically high <=30.0 [facility] Comment on above: Performed By: #### C VDAGS #### [facility] [address] [place] [address] Dr. Ashlie Hills UA RANDOM W/MICROSCOPICon BACTERIA NONE SEEN Normal NONE SEEN [facility] Comment on above: Performed By: #### C VDAGS #### [facility] [address] [place] [address] Dr. Ashlie Hills Bilirubin Ql (U) Negative Normal NEGATIVE [facility] Comment on above: Performed By: #### C VDAGS #### [facility] [address] [place] [address] Dr. Ashlie Hills CAST SEEN Abnormal NONE SEEN [facility] Comment on above: Performed By: #### C VDAGS #### [facility] [address] [place] [address] Dr. Ashlie Hills Clarity (U) CLEAR Normal CLEAR [facility] Comment on above: Performed By: #### C VDAGS #### [facility] [address] [place] [address] Dr. Ashlie Hills Color (U) YELLOW Normal YELLOW [facility] Comment on above: Performed By: #### C VDAGS #### [facility] [address] [place] [address] Dr. Ashlie Hills Crystals LM Nom (Urine sed) NONE SEEN Normal NONE SEEN [facility] Comment on above: Performed By: #### C VDAGS #### [facility] [address] [place] [address] Dr. Ashlie Hills Epithelial cells LM Ql (Urine sed) MODERATE Abnormal NONE SEEN /RARE [facility] Comment on above: Performed By: #### C VDAGS #### [facility] [address] [place] [address] Dr. Ashlie Hills Glucose Ql (U) Negative Normal NEGATIVE [facility] Comment on above: Performed By: #### C VDAGS #### [facility] [address] [place] [address] Dr. Ashlie Hills Hemoglobin Ql (U) TRACE-INTACT Abnormal NEGATIVE [facility] Comment on above: Performed By: #### C VDAGS #### [facility] [address] [place] [address] Dr. Ashlie Hills Ketones Ql (U) Negative Normal NEGATIVE [facility] Comment on above: Performed By: #### C VDAGS #### [facility] [address] [place] [address] Dr. Ashlie Hills LEUKOCYTES Negative Normal NEGATIVE [facility] Comment on above: Performed By: #### C VDAGS #### [facility] [address] [address] [address] Ashlie Hills MUCOUS NONE SEEN Normal NONE SEEN [facility] Comment on above: Performed By: #### C VDAGS #### [facility] [address] [place] [address] Dr. Ashlie Hills Nitrite Ql (U) Negative Normal NEGATIVE [facility] Comment on above: Performed By: #### C VDAGS #### [facility] [address] [place] [address] Dr. Ashlie Hills pH (U) 5.0 [pH] Normal 5-9 [facility] Comment on above: Performed By: #### C VDAGS #### [facility] [address] [place] [address] Dr. Ashlie Hills RBC 0-2 Normal 0-2 [facility] Comment on above: Performed By: #### C VDAGS #### [facility] [address] [place] [address] Dr. Ashlie Hills SPEC GRAVITY 1.030 Abnormal 1.005-<=1.025 [facility] Comment on above: Performed By: #### C VDAGS #### [facility] [address] [place] [address] Dr. Ashlie Hills UA PROTEIN 100 mg/dl Abnormal NEGATIVE/ TRACE [facility] Comment on above: Performed By: #### C VDAGS #### [facility] [address] [place] [address] Dr. Ashlie Hills Urobilinogen Qn (U) 0.2 {Little'U}/dL Normal 0.2 - 1. 0 [facility] Comment on above: Performed By: #### C VDAGS #### [facility] [address] [address] [address] Ashlie Hills WBC NONE SEEN Normal NONE SEEN [facility] Comment on above: Performed By: #### C VDAGS #### [facility] [address] [address] [address] Ashlie Hills CBC AUTO DIFFon 11-22-2022 BASO # 0.0 103/ul Normal 0.0-0.1 [facility] Comment on above: Performed By: #### C BC #### [facility] [address] [place] [address] Dr. Ashlie Hills Basophils/100 WBC (Bld) 0.3 % Normal 0.2-2.0 [facility] Comment on above: Performed By: #### C BC #### [facility] [address] [place] [address] Dr. Ashlie Hills EO # 0.4 103/ul Normal 0.0-0.7 [facility] Comment on above: Performed By: #### C BC #### [facility] [address] [place] [address] Dr. Ashlie Hills Eosinophils/100 WBC (Bld) 3.0 % Normal 0.9-7.0 [facility] Comment on above: Performed By: #### C BC #### [facility] [address] [place] [address] Dr. Ashlie Hills Erythrocyte distribution width (RBC) [Ratio] 15.3 % Critically high 11.0-15.0 [facility] Comment on above: Performed By: #### C BC #### [facility] [address] [place] [address] Dr. Ashlie Hills Hematocrit (Bld) [Volume fraction] 52.4 % Critically high 36.0-48.0 [facility] Comment on above: Performed By: #### C BC #### [facility] [address] [place] [address] Dr. Ashlie Hills Hemoglobin (Bld) [Mass/Vol] 16.8 g/dL Critically high 12.0-16.0 [facility] Comment on above: Performed By: #### C BC #### [facility] [address] [address] [address] Ashlie Hills IG # 0.04 10e3/ul Critically high 0.00-0.03 [facility] Comment on above: Performed By: #### C BC #### [facility] [address] [place] [address] Dr. Ashlie Hills IG % 0.3 % Normal 0.0-0.5 [facility] Comment on above: Performed By: #### C BC #### [facility] [address] [place] [address] Dr. Ashlie Hills LYMPH # 4.5 103/ul Critically high 1.2-3.8 [facility] [place] Comment on above: Performed By: #### C BC #### [facility] [address] [place] [address] Dr. Ashlie Hills Lymphocytes/100 WBC (Bld) 33.2 % Normal 20.5-60.0 [facility] Comment on above: Performed By: #### C BC #### [facility] [address] [place] [address] Dr. Ashlie Hills MANUAL DIFF REQ NO Normal [facility] [place] Comment on above: Performed By: #### C BC #### [facility] [address] [place] [address] Dr. Ashlie Hills MCH (RBC) [Entitic mass] 28.0 pg Normal 26.7-34.0 [facility] Comment on above: Performed By: #### C BC #### [facility] [address] [place] [address] Dr. Ashlie Hills MCHC (RBC) [Mass/Vol] 32.1 g/dL Normal 29.9-35.2 [facility] Comment on above: Performed By: #### C BC #### [facility] [address] [place] [address] Dr. Ashlie Hills MCV (RBC) [Entitic vol] 87.3 fL Normal 81.0-99.0 [facility] Comment on above: Performed By: #### C BC #### [facility] [address] [address] [address] Ashlie Hills MONO # 0.8 103/ul Normal 0.3-0.8 [facility] Comment on above: Performed By: #### C BC #### [facility] [address] [address] [address] Ashlie Hills Monocytes/100 WBC (Bld) 5.7 % Normal 1.7-12.0 [facility] Comment on above: Performed By: #### C BC #### [facility] [address] [place] [address] Dr. Ashlie Hills NEUT # 7.8 103/ul Critically high 1.4-6.5 [facility] [place] Comment on above: Performed By: #### C BC #### [facility] [address] [place] [address] Dr. Ashlie Hills Neutrophils/100 WBC (Bld) 57.5 % Normal 43.0-75.0 [facility] Comment on above: Performed By: #### C BC #### [facility] [address] [place] [address] Dr. Ashlie Hills Platelet mean volume (Bld) [Entitic vol] 12.0 fL Normal 9.5-13.5 [facility] Comment on above: Performed By: #### C BC #### [facility] [address] [place] [address] Dr. Ashlie Hills PLT 152 103/ul Normal 150-450 [facility] Comment on above: Performed By: #### C BC #### [facility] [address] [place] [address] Dr. Ashlie Hills RBC 6.00 106/ul Critically high 4.20-5.40 [facility] Comment on above: Performed By: #### C BC #### [facility] [address] [place] [address] Dr. Ashlie Hills WBC 13.6 103/ul Critically high 4.0-11.0 [facility] Comment on above: Performed By: #### C BC #### [facility] [address] [place] [address] Dr. Ashlie Hills LIPID PROFILEon 11-22-2022 CHOL-HDL RATIO NORM SEE BELOW Normal [facility] Comment on above: Result Comment: 3.3 - 4.4 LOW RISK 4.4 - 7.1 AVERAGE RISK 7.1 - 11.0 MODERATE RISK >11.0 HIGH RISK Performed By: #### C BC #### [facility] [address] [address] [address] Ashlie Hills Cholesterol [Mass/Vol] 139 mg/dL Normal <=200 Th [facility] Comment on above: Performed By: #### C BC #### [facility] [address] [address] [address] Ashlie Hills Cholesterol in HDL [Mass/Vol] 35 mg/dL Critically low 40-60 [facility] Comment on above: Performed By: #### C BC #### [facility] [address] [address] [address] Ashlie Hills Cholesterol in LDL [Mass/Vol] 67.4 mg/dL Normal [facility] Comment on above: Performed By: #### C BC #### [facility] [address] [address] [address] [place] Cholesterol.total/Chol esterol in HDL [Mass ratio] 4.0 {ratio} Normal [facility] Comment on above: Performed By: #### C BC #### [facility] [address] [address] [address] [place] HDL NORMAL > or = 60 mg/dl - LOW CARDIOVASCULAR RISK <40 mg/dl - HIGH CARDIOVASCULAR RISK Normal [facility] Comment on above: Performed By: #### C BC #### [facility] [address] [address] [address] [place] LDL CALC NORMAL SEE BELOW Normal [facility] [place] Comment on above: Result Comment: <100 mg/dl OPTIMAL 100 - 129 mg/dl NEAR OR ABOVE OPTIMAL 130 - 159 mg/dl BORDERLINE HIGH 160 - 189 mg/dl HIGH >190 mg/dl VERY HIGH Performed By: #### C BC #### [facility] [address] [address] [address] [place] Triglyceride [Mass/Vol] 183 mg/dL Critically high <=150 [facility] Comment on above: Performed By: #### C BC #### [facility] [address] [address] [address] [place] VLDL CALC 36.6 mg/dL Normal [facility] Comment on above: Performed By: #### C BC #### [facility] [address] [address] [address] 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 LOCATION: [facility] BREAST COMPOSITION: Almost entirely fatty. [...] M.D. on 11/22/2022 at 12:09 Normal [facility] PROF 14(COMP METB)on 023 Albumin [Mass/Vol] 3.0 g/dL Critically low 3.4-5.0 [facility] Comment on above: Performed By: #### C BC #### [facility] [address] [place] [address] Dr. [place] Albumin/Globulin [Mass ratio] 0.6 {ratio} Normal [facility] Comment on above: Performed By: #### C BC #### [facility] [address] [place] [address] Dr. [place] ALP [Catalytic activity/Vol] 68 U/L Normal 46-116 [facility] Comment on above: Performed By: #### C BC #### [facility] [address] [place] [address] Dr. [place] ALT [Catalytic activity/Vol] 14 U/L Normal 14-59 [facility] Comment on above: Performed By: #### C BC #### [facility] [address] [place] [address] Dr. [place] Anion gap [Moles/Vol] 12.1 mmol/L Normal [facility] Comment on above: Performed By: #### C BC #### [facility] [address] [place] [address] Dr. [place] AST [Catalytic activity/Vol] 9 U/L Critically low 15-37 [facility] Comment on above: Performed By: #### C BC #### [facility] [address] [place] [address] Dr. [place] Bilirubin [Mass/Vol] 0.4 mg/dL Normal 0.2-1.0 [facility] Comment on above: Performed By: #### C BC #### [facility] [address] [place] [address] Dr. [place] Calcium [Mass/Vol] 9.0 mg/dL Normal 8.5-10.1 [facility] Comment on above: Performed By: #### C BC #### [facility] [address] [place] [address] Dr. [place] Chloride [Moles/Vol] 105 mmol/L Normal 98-107 [facility] Comment on above: Performed By: #### C BC #### [facility] [address] [address] [address] [place] CO2 [Moles/Vol] 30.7 mmol/L Normal 21.0-32.0 [facility] Comment on above: Performed By: #### C BC #### [facility] [address] [address] [address] [place] Creatinine [Mass/Vol] 0.77 mg/dL Normal 0.55-1.02 [facility] Comment on above: Performed By: #### C BC #### [facility] [address] [place] [address] Dr. [place] EGFR-AF AZERBAIJANI >60 Normal >=60 [facility] Comment on above: Performed By: #### C BC #### [facility] [address] [place] [address] Dr. [place] EGFR-NON AF AZERBAIJANI >60 Normal >=60 [facility] Comment on above: Performed By: #### C BC #### [facility] [address] [address] [address] [place] Globulin (S) [Mass/Vol] 4.8 g/dL Normal [facility] Comment on above: Performed By: #### C BC #### [facility] [address] [place] [address] Dr. [place] Glucose [Mass/Vol] 162 mg/dL Critically high 74-106 [facility] Comment on above: Performed By: #### C BC #### [facility] [address] [place] [address] Dr. [place] Potassium [Moles/Vol] 3.8 mmol/L Normal 3.5-5.1 [facility] Comment on above: Performed By: #### C BC #### [facility] [address] [place] [address] Dr. [place] Protein [Mass/Vol] 7.8 g/dL Normal 6.4-8.2 [facility] Comment on above: Performed By: #### C BC #### [facility] [address] [place] [address] Dr. [place] Sodium [Moles/Vol] 144 mmol/L Normal 136-145 [facility] Comment on above: Performed By: #### C BC #### [facility] [address] [place] [address] Dr. [place] Urea nitrogen [Mass/Vol] 24.0 mg/dL Critically high 7.0-18.0 [facility] Comment on above: Performed By: #### C BC #### [facility] [address] [place] [address] Dr. [place] Urea nitrogen/Creatinine [Mass ratio] 31.2 mg/mg Normal [facility] Comment on above: Performed By: #### C BC #### [facility] [address] [place] [address] Dr. [place] CBC AUTO DIFFon 10-05-2022 BASO # 0.1 103/ul Normal 0.0-0.1 [facility] Comment on above: Performed By: #### C BC #### [facility] [address] [place] [address] Dr. [place] Basophils/100 WBC (Bld) 0.6 % Normal 0.2-2.0 [facility] Comment on above: Performed By: #### C BC #### [facility] [address] [place] [address] Dr. [place] EO # 0.3 103/ul Normal 0.0-0.7 [facility] Comment on above: Performed By: #### C BC #### [facility] [address] [place] [address] Dr. [place] Eosinophils/100 WBC (Bld) 2.1 % Normal 0.9-7.0 [facility] Comment on above: Performed By: #### C BC #### [facility] [address] [place] [address] Dr. [place] Erythrocyte distribution width (RBC) [Ratio] 15.9 % Critically high 11.0-15.0 [facility] Comment on above: Performed By: #### C BC #### [facility] [address] [place] [address] Dr. [place] Hematocrit (Bld) [Volume fraction] 51.8 % Critically high 36.0-48.0 [facility] Comment on above: Performed By: #### C BC #### [facility] [address] [place] [address] Dr. [place] Hemoglobin (Bld) [Mass/Vol] 16.6 g/dL Critically high 12.0-16.0 [facility] Comment on above: Performed By: #### C BC #### [facility] [address] [place] [address] Dr. [place] IG # 0.03 10e3/ul Normal 0.00-0.03 [facility] Comment on above: Performed By: #### C BC #### [facility] [address] [place] [address] Dr. [place] IG % 0.2 % Normal 0.0-0.5 [facility] Comment on above: Performed By: #### C BC #### [facility] [address] [place] [address] Dr. [place] LYMPH # 3.9 103/ul Critically high 1.2-3.8 [facility] [place] Comment on above: Performed By: #### C BC #### [facility] [address] [place] [address] Dr. [place] Lymphocytes/100 WBC (Bld) 31.7 % Normal 20.5-60.0 [facility] Comment on above: Performed By: #### C BC #### [facility] [address] [place] [address] Dr. [place] MANUAL DIFF REQ NO Normal [facility] Comment on above: Performed By: #### C BC #### [facility] [address] [place] [address] Dr. [place] MCH (RBC) [Entitic mass] 27.9 pg Normal 26.7-34.0 [facility] Comment on above: Performed By: #### C BC #### [facility] [address] [address] [address] [place] MCHC (RBC) [Mass/Vol] 32.0 g/dL Normal 29.9-35.2 [facility] Comment on above: Performed By: #### C BC #### [facility] [address] [address] [address] [place] MCV (RBC) [Entitic vol] 87.1 fL Normal 81.0-99.0 [facility] Comment on above: Performed By: #### C BC #### [facility] [address] [address] [address] [place] MONO # 0.7 103/ul Normal 0.3-0.8 [facility] Comment on above: Performed By: #### C BC #### [facility] [address] [address] [address] [place] Monocytes/100 WBC (Bld) 5.8 % Normal 1.7-12.0 [facility] Comment on above: Performed By: #### C BC #### [facility] [address] [address] [address] [place] NEUT # 7.3 103/ul Critically high 1.4-6.5 [facility] [place] Comment on above: Performed By: #### C BC #### [facility] [address] [address] [address] [place] Neutrophils/100 WBC (Bld) 59.6 % Normal 43.0-75.0 [facility] Comment on above: Performed By: #### C BC #### [facility] [address] [address] [address] [place] Platelet mean volume (Bld) [Entitic vol] 11.7 fL Normal 9.5-13.5 [facility] Comment on above: Performed By: #### C BC #### [facility] [address] [address] [address] [place] PLT 117 103/ul Critically low 150-450 [facility] Comment on above: Performed By: #### C BC #### [facility] [address] [address] [address] [place] RBC 5.95 106/ul Critically high 4.20-5.40 [facility] Comment on above: Performed By: #### C BC #### [facility] [address] [address] [address] [place] WBC 12.3 103/ul Critically high 4.0-11.0 [facility] Comment on above: Performed By: #### C BC #### [facility] [address] [address] [address] [place] [address] ABD/PELV W CONon [...] RICCO PICKARD Date: 2022-10-05 13:13 Normal [facility] ER URINE PROFILEon 3 Bilirubin Ql (U) Negative Normal NEGATIVE [facility] Comment on above: Performed By: #### P OCGLUC #### [facility] [address] [place] [address] Dr. [place] Clarity (U) CLEAR Normal CLEAR [facility] Comment on above: Performed By: #### P OCGLUC #### [facility] [address] [address] [address] [place] Color (U) YELLOW Normal YELLOW [facility] Comment on above: Performed By: #### P OCGLUC #### [facility] [address] [address] [address] [place] ERUAHD A micrscopic examination will be performed if indicated. Normal [facility] Comment on above: Performed By: #### P OCGLUC #### [facility] [address] [address] [address] [place] Glucose Ql (U) Negative Normal NEGATIVE [facility] Comment on above: Performed By: #### P OCGLUC #### [facility] [address] [address] [address] [place] Hemoglobin Ql (U) Negative Normal NEGATIVE [facility] Comment on above: Performed By: #### P OCGLUC #### [facility] [address] [address] [address] [place] Ketones Ql (U) Negative Normal NEGATIVE [facility] Comment on above: Performed By: #### P OCGLUC #### [facility] [address] [address] [address] [place] LEUKOCYTES Negative Normal NEGATIVE [facility] Comment on above: Performed By: #### P OCGLUC #### [facility] [address] [place] [address] Dr. [place] Nitrite Ql (U) Negative Normal NEGATIVE [facility] Comment on above: Performed By: #### P OCGLUC #### [facility] [address] [address] [address] [place] pH (U) 6.0 [pH] Normal 5-9 [facility] Comment on above: Performed By: #### P OCGLUC #### [facility] [address] [place] [address] Dr. [place] Protein (U) [Mass/Vol] 100 mg/dL Abnormal NEGAT YURY/ TRACE [facility] Comment on above: Performed By: #### P OCGLUC #### [facility] [address] [place] [address] Dr. [place] SPEC GRAVITY 1.010 Normal 1.005-<=1.025 [facility] [place] Comment on above: Performed By: #### P OCGLUC #### [facility] [address] [place] [address] Dr. [place] UR MICRO IND INDICATED Normal [facility] Comment on above: Performed By: #### P OCGLUC #### [facility] [address] [place] [address] Dr. [place] Urobilinogen Qn (U) 1.0 {Little'U}/dL Normal 0.2 - 1. 0 [facility] Comment on above: Performed By: #### P OCGLUC #### [facility] [address] [place] [address] Dr. [place] LIPASEon 10-05-2022 Lipase [Catalytic activity/Vol] 1771.0 U/L Critically high 73.0-393.0 [facility] Comment on above: Performed By: #### C BC #### [facility] [address] [place] [address] Dr. [place] PREG HCG QUALon 10-05-2022 , QUAL Negative Normal NEGATIVE [facility] [place] Comment on above: Performed By: #### P OCGLUC #### [facility] [address] [place] [address] Dr. [place] PROF 14(COMP METB)on 023 Albumin [Mass/Vol] 3.2 g/dL Critically low 3.4-5.0 [facility] Comment on above: Performed By: #### C BC #### [facility] [address] [place] [address] Dr. [place] Albumin/Globulin [Mass ratio] 0.7 {ratio} Normal [facility] Comment on above: Performed By: #### C BC #### [facility] [address] [place] [address] Dr. [place] ALP [Catalytic activity/Vol] 70 U/L Normal 46-116 [facility] Comment on above: Performed By: #### C BC #### [facility] [address] [address] [address] [place] ALT [Catalytic activity/Vol] 11 U/L Critically low 14-59 [facility] Comment on above: Performed By: #### C BC #### [facility] [address] [address] [address] [place] Anion gap [Moles/Vol] 10.3 mmol/L Normal [facility] Comment on above: Performed By: #### C BC #### [facility] [address] [address] [address] [place] AST [Catalytic activity/Vol] 11 U/L Critically low 15-37 [facility] Comment on above: Performed By: #### C BC #### [facility] [address] [address] [address] [place] Bilirubin [Mass/Vol] 0.9 mg/dL Normal 0.2-1.0 [facility] Comment on above: Performed By: #### C BC #### [facility] [address] [address] [address] [place] Calcium [Mass/Vol] 9.3 mg/dL Normal 8.5-10.1 [facility] Comment on above: Performed By: #### C BC #### [facility] [address] [address] [address] [place] Chloride [Moles/Vol] 105 mmol/L Normal 98-107 [facility] Comment on above: Performed By: #### C BC #### [facility] [address] [address] [address] [place] CO2 [Moles/Vol] 30.6 mmol/L Normal 21.0-32.0 [facility] Comment on above: Performed By: #### C BC #### [facility] [address] [address] [address] [place] Creatinine [Mass/Vol] 0.62 mg/dL Normal 0.55-1.02 [facility] Comment on above: Performed By: #### C BC #### [facility] [address] [address] [address] [place] EGFR-AF AZERBAIJANI >60 Normal >=60 [facility] Comment on above: Performed By: #### C BC #### [facility] [address] [address] [address] [place] EGFR-NON AF AZERBAIJANI >60 Normal >=60 [facility] Comment on above: Performed By: #### C BC #### [facility] [address] [address] [address] [place] Globulin (S) [Mass/Vol] 4.6 g/dL Normal [facility] Comment on above: Performed By: #### C BC #### [facility] [address] [place] [address] Dr. [place] Glucose [Mass/Vol] 85 mg/dL Normal 74-106 [facility] Comment on above: Performed By: #### C BC #### [facility] [address] [address] [address] [place] Potassium [Moles/Vol] 3.9 mmol/L Normal 3.5-5.1 [facility] Comment on above: Performed By: #### C BC #### [facility] [address] [place] [address] Dr. [place] Protein [Mass/Vol] 7.8 g/dL Normal 6.4-8.2 [facility] Comment on above: Performed By: #### C BC #### [facility] [address] [place] [address] Dr. [place] Sodium [Moles/Vol] 142 mmol/L Normal 136-145 [facility] Comment on above: Performed By: #### C BC #### [facility] [address] [address] [address] [place] Urea nitrogen [Mass/Vol] 12.0 mg/dL Normal 7.0-18.0 [facility] Comment on above: Performed By: #### C BC #### [facility] [address] [address] [address] [place] Urea nitrogen/Creatinine [Mass ratio] 19.4 mg/mg Normal [facility] Comment on above: Performed By: #### C BC #### [facility] [address] [place] [address] Dr. [place] URINE MICROSCOPIC ONLYon BACTERIA TRACE Abnormal NONE SEEN [facility] Comment on above: Performed By: #### P OCGLUC #### [facility] [address] [place] [address] Dr. [place] Bacteria identified Cx Nom (U) NOT INDICATED Normal [facility] Comment on above: Performed By: #### P OCGLUC #### [facility] [address] [place] [address] Dr. [place] CAST NONE SEEN Normal NONE SEEN [facility] Comment on above: Performed By: #### P OCGLUC #### [facility] [address] [place] [address] Dr. [place] Crystals LM Nom (Urine sed) NONE SEEN Normal NONE SEEN [facility] Comment on above: Performed By: #### P OCGLUC #### [facility] [address] [place] [address] Dr. [place] Epithelial cells LM Ql (Urine sed) MODERATE Abnormal NONE SEEN /RARE [facility] Comment on above: Performed By: #### P OCGLUC #### [facility] [address] [place] [address] Dr. [place] MUCOUS NONE SEEN Normal NONE SEEN [facility] Comment on above: Performed By: #### P OCGLUC #### [facility] [address] [place] [address] Dr. [place] RBC 0-2 Normal 0-2 [facility] Comment on above: Performed By: #### P OCGLUC #### [facility] [address] [place] [address] Dr. [place] WBC 0-2 Abnormal NONE SEEN [facility] Comment on above: Performed By: #### P OCGLUC #### [facility] [address] [place] [address] Dr. [place] Covid-19 PCR (CVDTBH)on 09-06 SARS-CoV-2 (COVID-19) RNA MADDY+probe Ql (Unsp spec) Detected Abnormal NOT DETECTED [facility] [...] for this test is supported by the [employer]'s declaration that [...] used). Performed By: #### C VDAGS #### [facility] [facility] [address] [place] [address] Dr. Ashlie Hills INFLUENZA A AND B AGon 09-21 [facility] SEE BELOW Normal The [facility] Comment on above: Result Comment: Nega tive for Flu A protein angiten. Infection due to Flu A cannot be ruled out. Flu A angiten in the sample may be below the detection limit of the test. Performed By: #### I NFLUAB #### [facility] [address] [place] [address] Dr. Ashlie Hills [facility] SEE BELOW Normal The [facility] Comment on above: Result Comment: Nega tive for Flu B protein antigen. Infection due to Flu B cannot be ruled out. Flu B antigen in the sample may be below the detection limit of the test. Performed By: #### I NFLUAB #### [facility] [address] [place] [address] Dr. Ashlie Hills INFLUENZA A AG Negative Normal NEGATIVE SEE COMMENT [facility] Comment on above: Performed By: #### I NFLUAB #### [facility] [address] [place] [address] Dr. Ashlie Hills INFLUENZA B AG Negative Normal NEGATIVE SEE COMMENT [facility] Comment on above: Performed By: #### I NFLUAB #### [facility] [address] [address] [address] ABD/PELV W CONon 07-27-19 CT ABD/PELV [...] to at least 10/21/2018, unchanged. https://www.ncbi.nlm .nih.gov/pmc/article s/[email or web address]/ Electronically authenticated by: COLLIN HUERTAS Date: 2022-07-27 14:56 Normal [facility] CREATININEon 07-18-2022 Creatinine [Mass/Vol] 0.81 mg/dL Normal 0.55-1.02 [facility] Comment on above: Performed By: #### C BC #### [facility] [address] [address] [address] Ashlie Hills EGFR-AF AZERBAIJANI >60 Normal >=60 The [facility] Comment on above: Performed By: #### C BC #### [facility] [address] [address] [address] Ashlie Hills EGFR-NON AF AZERBAIJANI >60 Normal >=60 [facility] Comment on above: Performed By: #### C BC #### [facility] [address] [place] [address] LOW EXT W [...] PATRICIA VELOZ Date: 2022-07-18 14:58 Normal [facility] XR KNEE LT 1_2 Von [...] HATTIE BAUTISTA Date: 2022-07-18 12:00 Normal [facility] Covid-19 PCR (CVDTBH)on 06-09 SARS-CoV-2 (COVID-19) RNA MADDY+probe Ql (Unsp spec) Not detected Normal NOT DETECTED The [facility] [...] for this test is supported by the [employer] of Health and Human Service's (HHS's) declaration [...] SARS-CoV-2. Performed By: #### C BC #### [facility] [address] [place] [address] Dr. Ashlei Hills INFLUENZA A AND B [facility] 07-06 [facility] SEE BELOW Normal [facility] Comment on above: Result Comment: Nega tive for Flu A protein angiten. Infection due to Flu A cannot be ruled out. Flu A angiten in the sample may be below the detection limit of the test. Performed By: #### C BC #### [facility] [address] [place] [address] Dr. Ashlie Hills [facility] Normal [facility] Comment on above: Result Comment: Nega tive for Flu B protein antigen. Infection due to Flu B cannot be ruled out. Flu B antigen in the sample may be below the detection limit of the test. Performed By: #### C BC #### [facility] [address] [place] [address] Dr. Ashlie Hills INFLUENZA A AG Negative Normal NEGATIVE SEE COMMENT [facility] Comment on above: Performed By: #### C BC #### [facility] [address] [place] [address] Dr. Ashlie Hills INFLUENZA B AG Negative Normal NEGATIVE SEE COMMENT [facility] Comment on above: Performed By: #### C BC #### [facility] [address] [place] [address] Dr. Ashlie Hills POINT OF CARE GLUCOSEon 10-1 Glucose [Mass/Vol] 108 mg/dL Critically high 74-106 T [facility] Comment on above: Performed By: #### C BC #### [facility] [address] [place] [address] Dr. Ashlie Hills RAGHU by IFAon 03-07-2022 Antinuclear Antibodies, IFA Negative Normal [facility] Comment on above: Result Comment: Nega tive <1:80 Borderline 1:80 Positive >1:80 ICAP nomenclature: AC-0 For more information about Hep-2 cell patterns use ANApatterns.org, the official website for the International Consensus on Antinuclear Antibody (RAGHU) Patterns (ICAP). Performed By: #### A NAIFA #### [facility] [address] [place] [address] Dr. Ashlie Hills [facility]ON Interpretation:U Comment Normal [facility] Comment on above: Result Comment: No m onoclonality detected. Performed By: #### C BC #### [facility] [address] [place] [address] Dr. Ashlie Hills IMMUNOFIXATION(TREVON),PROTEIN ELEC(PE),FRE 03-07-2022 Albumin [Mass/Vol] 3.0 g/dL Normal 2.9-4.4 [facility] Comment on above: Performed By: #### I NFLUAB #### [facility] [address] [place] [address] Dr. Ashlie Hills Albumin/Globulin [Mass ratio] 0.8 {ratio} Normal 0.7-1.7 [facility] Comment on above: Performed By: #### I NFLUAB #### [facility] [address] [place] [address] Dr. Ashlie Hills Mkoru-5-Gafypoly 0.3 g/dL Normal 0.0-0.4 [facility] Comment on above: Performed By: #### I NFLUAB #### [facility] [address] [place] [address] Dr. Ashlie Hills Zlflb-4-Pqvcszkv 1.0 g/dL Normal 0.4-1.0 [facility] Comment on above: Performed By: #### I NFLUAB #### [facility] [address] [address] [address] Ashlie Hills Beta Globulin 1.8 g/dL Critically high 0.7-1.3 [facility] Comment on above: Performed By: #### I NFLUAB #### [facility] [address] [address] [address] Ashlie Hills Free Point Lt Chains,S 45.2 mg/L Critically high 3.3-19.4 [facility] Comment on above: Performed By: #### I NFLUAB #### [facility] [address] [address] [address] Ashlie Hills Free Lambda Lt Chains,S 40.3 mg/L Critically high 5.7-26.3 [facility] Comment on above: Performed By: #### I NFLUAB #### [facility] [address] [place] [address] Dr. Ashlie Hills Gamma Globulin 0.8 g/dL Normal 0.4-1.8 [facility] Comment on above: Performed By: #### I NFLUAB #### [facility] [address] [address] [address] Ashlie Hills Globulin (S) [Mass/Vol] 3.9 g/dL Normal 2.2-3.9 [facility] Comment on above: Performed By: #### I NFLUAB #### [facility] [address] [address] [address] Ahslie Hills Immunofixation Result, Serum Comment Normal [facility] Comment on above: Result Comment: No m onoclonality detected. Performed By: #### I NFLUAB #### [facility] [address] [address] [address] Ashlie Hills Immunoglobulin A, Qn, Serum 776 mg/dL Critically high 87-352 [facility] Comment on above: Performed By: #### I NFLUAB #### [facility] [address] [address] [address] Ashlie Hills Immunoglobulin G, Qn, Serum 955 mg/dL Normal 586-1602 [facility] Comment on above: Performed By: #### I NFLUAB #### [facility] [address] [address] [address] Ashlie Hills Immunoglobulin M, Qn, Serum 39 mg/dL Normal 26-217 [facility] Comment on above: Performed By: #### I NFLUAB #### [facility] [address] [address] [address] Ashlie Hills Point/Lambda Ratio, S 1.12 Normal 0.26-1.65 [facility] Comment on above: Performed By: #### I NFLUAB #### [facility] [address] [address] [address] Ashlie Hills M-Bright Not Observed Normal Not Observed [facility] Comment on above: Performed By: #### I NFLUAB #### [facility] [address] [place] [address] Dr. Ashlie Hills PDF . Normal [facility] Comment on above: Performed By: #### I NFLUAB #### [facility] [address] [place] [address] Dr. Ashlie Hills Please note: Comment Normal [facility] Comment on above: Result Comment: Prot ein electrophoresis scan will follow via computer, mail, or pest control technician delivery. Performed By: #### I NFLUAB #### [facility] [address] [place] [address] Dr. Ashlie Hills Protein [Mass/Vol] 6.9 g/dL Normal 6.0-8.5 [facility] Comment on above: Performed By: #### I NFLUAB #### [facility] [address] [address] [address] Ashlie Hills C-PEPTIDE, SERUMon C-Peptide, Serum 3.1 ng/mL Normal 1.1-4.4 [facility] Comment on above: Result Comment: C-Pe ptide reference interval is for fasting patients. Performed By: #### C PEPT #### [facility] [address] [place] [address] Dr. Ashlie Hills HEP B SURFACE ANTIGEN SCREEN on 03-04-2022 HBsAg Screen Negative Normal Negative [facility] Comment on above: Performed By: #### C BC #### [facility] [address] [place] [address] Dr. Ashlie Hills HEPATITIS C VIRUS AB W/ REFL EX QUANTon 03-04-2022 HCV AB <0.1 Normal 0.0-0.9 [facility] Comment on above: Performed By: #### I NFLUAB #### [facility] [address] [place] [address] Dr. Ashlie Hills Interpretation: Comment Normal [facility] [place] Comment on above: Result Comment: Nega tive Not infected with HCV, unless recent infection is suspected or other evidence exists to indicate HCV infection. Performed By: #### I NFLUAB #### [facility] [address] [place] [address] Dr. Ashlie Hills MICROALBUMIN/ CREATININE RAT IOon 03-04-2022 Albumin, Urine 367.4 ug/mL Normal Not Estab. The [facility] Comment on above: Performed By: #### C BC #### [facility] [address] [place] [address] Dr. Ashlie Hlils Albumin/ Creatinine Ratio 239 mg/g creat Critically high 0-29 [facility] Comment on above: Result Comment: Norm al: 0 - 29 Moderately increased: 30 - 300 Severely increased: >300 Performed By: #### C BC #### [facility] [address] [place] [address] Dr. Ashlie Hills Creatinine, Urine 153.9 mg/dL Normal Not Estab. The [facility] Comment on above: Performed By: #### C BC #### [facility] [address] [place] [address] Dr. Ashlie Hills VIT D 25-OH LABCORPon 2021 Vitamin D, 25-Hydroxy <4.0 Critically low 30.0-100.0 [facility] Comment on above: Result Comment: Graciela min D deficiency has been defined by the [place] [employer] and an Endocrine Society practice guideline as a level of serum 25-OH vitamin D less than 20 ng/mL (1,2). The Endocrine Society went on to further define vitamin D insufficiency as a level between 21 and 29 ng/mL (2). 1. IOM ([place] [employer]). 2010. Dietary reference intakes for calcium and D. [place]: The National Academies Press. 2. Lynda MF, Keely OLIVEROS, Leandra LOPEZ, et al. Evaluation, treatment, and prevention of vitamin D deficiency: an Endocrine Society clinical practice guideline. JCEM. 2010; 96(7):1911-30. Performed By: #### C BC #### [facility] [address] [address] [address] Ashlie Hills GLYCOHEMOGLOBIN A1Con 2021 ADA RECOMMENDATION SEE BELOW Normal [facility] Comment on above: Result Comment: ADA RECOMMENDED LIMIT 4.0 - 6.0 ADA THERAPEUTIC TARGET < 7.0 ACTION SUGGESTED > 7.0 Performed By: #### C VDAGS #### [facility] [address] [place] [address] Dr. Ashlie Hills Glucose [Mass/Vol] 295 mg/dL Normal [facility] Comment on above: Performed By: #### C VDAGS #### [facility] [address] [address] [address] Ashlie Hills HbA1c (Bld) [Mass fraction] 11.9 % Critically high 4.5-6.2 [facility] Comment on above: Performed By: #### C VDAGS #### [facility] [address] [address] [address] Ashlie Hills HEMOGRAM AND PLATELon 2021 Hematocrit (Bld) [Volume fraction] 56.3 % Critically high 36.0-48.0 [facility] Comment on above: Performed By: #### C VDAGS #### [facility] [address] [address] [address] Ashlie Hills Hemoglobin (Bld) [Mass/Vol] 18.0 g/dL Critically high 12.0-16.0 [facility] Comment on above: Performed By: #### C VDAGS #### [facility] [address] [place] [address] Dr. Ashlie Hills MCH (RBC) [Entitic mass] 29.5 pg Normal 26.7-34.0 [facility] Comment on above: Performed By: #### C VDAGS #### [facility] [address] [place] [address] Dr. Ashlie Hills MCHC (RBC) [Mass/Vol] 32.0 g/dL Normal 29.9-35.2 [facility] Comment on above: Performed By: #### C VDAGS #### [facility] [address] [place] [address] Dr. Ashlie Hills MCV (RBC) [Entitic vol] 92.1 fL Normal 81.0-99.0 [facility] Comment on above: Performed By: #### C VDAGS #### [facility] [address] [place] [address] Dr. Ashlie Hills PLT 123 103/ul Critically low 150-450 [facility] Comment on above: Performed By: #### C VDAGS #### [facility] [address] [place] [address] Dr. Ashlie Hills RBC 6.11 106/ul Critically high 4.20-5.40 [facility] Comment on above: Performed By: #### C VDAGS #### [facility] [address] [place] [address] Dr. Ashlie Hills WBC 16.4 103/ul Critically high 4.0-11.0 [facility] Comment on above: Performed By: #### C VDAGS #### [facility] [address] [place] [address] Dr. Ashlie Hills LIPID PROFILEon 03-03-2022 CHOL-HDL RATIO NORM SEE BELOW Normal [facility] Comment on above: Result Comment: 3.3 - 4.4 LOW RISK 4.4 - 7.1 AVERAGE RISK 7.1 - 11.0 MODERATE RISK >11.0 HIGH RISK Performed By: #### C VDAGS #### [facility] [address] [place] [address] Dr. Ashlie Hills Cholesterol [Mass/Vol] 159 mg/dL Normal <=200 Th [facility] Comment on above: Performed By: #### C VDAGS #### [facility] [address] [address] [address] Ashlie Hills Cholesterol in HDL [Mass/Vol] 40 mg/dL Normal 40-60 [facility] Comment on above: Performed By: #### C VDAGS #### [facility] [address] [address] [address] Ashlie Hills Cholesterol in LDL [Mass/Vol] 81.8 mg/dL Normal [facility] Comment on above: Performed By: #### C VDAGS #### [facility] [address] [address] [address] Ashlie Hills Cholesterol.total/Chol esterol in HDL [Mass ratio] 4.0 {ratio} Normal [facility] Comment on above: Performed By: #### C VDAGS #### [facility] [address] [place] [address] Dr. Ashlie Hills HDL NORMAL > or = 60 mg/dl - LOW CARDIOVASCULAR RISK <40 mg/dl - HIGH CARDIOVASCULAR RISK Normal [facility] Comment on above: Performed By: #### C VDAGS #### [facility] [address] [address] [address] Ashlie Hills LDL CALC NORMAL SEE BELOW Normal [facility] [place] Comment on above: Result Comment: <100 mg/dl OPTIMAL 100 - 129 mg/dl NEAR OR ABOVE OPTIMAL 130 - 159 mg/dl BORDERLINE HIGH 160 - 189 mg/dl HIGH >190 mg/dl VERY HIGH Performed By: #### C VDAGS #### [facility] [address] [address] [address] Ashlie Hills Triglyceride [Mass/Vol] 186 mg/dL Critically high <=150 [facility] Comment on above: Performed By: #### C VDAGS #### [facility] [address] [place] [address] Dr. Ashlie Hills VLDL CALC 37.2 mg/dL Normal [facility] Comment on above: Performed By: #### C VDAGS #### [facility] [address] [address] [address] Ashlie Hills RENAL FUNCTION PANELon 03-03 Albumin [Mass/Vol] 3.1 g/dL Critically low 3.4-5.0 Th [facility] Comment on above: Performed By: #### C BC #### [facility] [address] [address] [address] Ashlie Hills Calcium [Mass/Vol] 9.2 mg/dL Normal 8.5-10.1 [facility] Comment on above: Performed By: #### C BC #### [facility] [address] [address] [address] Ashlie Hills Chloride [Moles/Vol] 102 mmol/L Normal 98-107 [facility] Comment on above: Performed By: #### C BC #### [facility] [address] [place] [address] Dr. Ashlie Hills CO2 [Moles/Vol] 31.9 mmol/L Normal 21.0-32.0 [facility] Comment on above: Performed By: #### C BC #### [facility] [address] [place] [address] Dr. Ashlie Hills Creatinine [Mass/Vol] 0.68 mg/dL Normal 0.55-1.02 [facility] Comment on above: Performed By: #### C BC #### [facility] [address] [place] [address] Dr. Ashlie Hills EGFR-AF AZERBAIJANI >60 Normal >=60 [facility] Comment on above: Performed By: #### C BC #### [facility] [address] [place] [address] Dr. Ashlie Hills EGFR-NON AF AZERBAIJANI >60 Normal >=60 [facility] Comment on above: Performed By: #### C BC #### [facility] [address] [address] [address] Ashlie Hills Glucose [Mass/Vol] 131 mg/dL Critically high 74-106 [facility] Comment on above: Performed By: #### C BC #### [facility] [address] [place] [address] Dr. Ashlie Hills Phosphate [Mass/Vol] 4.0 mg/dL Normal 2.6-4.7 [facility] Comment on above: Performed By: #### C BC #### [facility] [address] [place] [address] Dr. Ashlie Hills Potassium [Moles/Vol] 4.0 mmol/L Normal 3.5-5.1 [facility] Comment on above: Performed By: #### C BC #### [facility] [address] [place] [address] Dr. Ashlie Hills Sodium [Moles/Vol] 141 mmol/L Normal 136-145 [facility] Comment on above: Performed By: #### C BC #### [facility] [address] [place] [address] Dr. Ashlie Hills Urea nitrogen [Mass/Vol] 17.0 mg/dL Normal 7.0-18.0 [facility] Comment on above: Performed By: #### C BC #### [facility] [address] [place] [address] Dr. Ashlie Hills UA RANDOM W/MICROSCOPICon BACTERIA NONE SEEN Normal NONE SEEN [facility] Comment on above: Performed By: #### I NFLUAB #### [facility] [address] [place] [address] Dr. Ashlie Hills Bilirubin Ql (U) Negative Normal NEGATIVE [facility] Comment on above: Performed By: #### I NFLUAB #### [facility] [address] [place] [address] Dr. Ashlie Hills CAST NONE SEEN Normal NONE SEEN [facility] Comment on above: Performed By: #### I NFLUAB #### [facility] [address] [place] [address] Dr. Ashlie Hills Clarity (U) CLEAR Normal CLEAR [facility] Comment on above: Performed By: #### I NFLUAB #### [facility] [address] [place] [address] Dr. Ashlie Hills Color (U) YELLOW Normal YELLOW [facility] Comment on above: Performed By: #### I NFLUAB #### [facility] [address] [place] [address] Dr. Ashlie Hills Crystals LM Nom (Urine sed) NONE SEEN Normal NONE SEEN [facility] Comment on above: Performed By: #### I NFLUAB #### [facility] [address] [place] [address] Dr. Ashlie Hills Epithelial cells LM Ql (Urine sed) FEW Abnormal NONE SEEN /RARE [facility] Comment on above: Performed By: #### I NFLUAB #### [facility] [address] [place] [address] Dr. Ashlie Hills Glucose Ql (U) Negative Normal NEGATIVE [facility] Comment on above: Performed By: #### I NFLUAB #### [facility] [address] [place] [address] Dr. Ashlie Hills Hemoglobin Ql (U) Negative Normal NEGATIVE [facility] Comment on above: Performed By: #### I NFLUAB #### [facility] [address] [place] [address] Dr. Ashlie Hills Ketones Ql (U) Negative Normal NEGATIVE The [facility] Comment on above: Performed By: #### I NFLUAB #### [facility] [address] [place] [address] Dr. Ashlie Hills LEUKOCYTES Negative Normal NEGATIVE The [facility] Comment on above: Performed By: #### I NFLUAB #### [facility] [address] [place] [address] Dr. Ashlie Hills MUCOUS NONE SEEN Normal NONE SEEN The [facility] Comment on above: Performed By: #### I NFLUAB #### [facility] [address] [place] [address] Dr. Ashlie Hills Nitrite Ql (U) Negative Normal NEGATIVE [facility] Comment on above: Performed By: #### I NFLUAB #### [facility] [address] [place] [address] Dr. Ashlie Hills pH (U) 5.5 [pH] Normal 5-9 The [facility] Comment on above: Performed By: #### I NFLUAB #### [facility] [address] [place] [address] Dr. Ashlie Hills RBC 0-2 Normal 0-2 [facility] Comment on above: Performed By: #### I NFLUAB #### [facility] [address] [place] [address] Dr. Ashlie Hills SPEC GRAVITY >=1.030 Abnormal 1.005-<=1.025 [facility] Comment on above: Performed By: #### I NFLUAB #### [facility] [address] [place] [address] Dr. Ashlie Hills UA PROTEIN 100 mg/dl Abnormal NEGATIVE/ TRACE The [facility] Comment on above: Performed By: #### I NFLUAB #### [facility] [address] [place] [address] Dr. Ashlie Hills Urobilinogen Qn (U) 0.2 {Little'U}/dL Normal 0.2 - 1. 0 [facility] Comment on above: Performed By: #### I NFLUAB #### [facility] [address] [place] [address] Dr. Ashlie Hills WBC NONE SEEN Normal NONE SEEN The [facility] Comment on above: Performed By: #### I NFLUAB #### [facility] [address] [place] [address] Dr. Ashlie Hills URIC ACID SERUMon 03-03-2022 Urate [Mass/Vol] 5.0 mg/dL Normal 2.6-6.0 The [facility] Comment on above: Performed By: #### I NFLUAB #### [facility] [address] [place] [address] Dr. Ashlie Hills URINE T PROTEIN CREAT RATIOo n 03-03-2022 Protein (U) [Mass/Vol] 77.9 mg/dL Critically high <=12.0 The [facility] Comment on above: Performed By: #### C VDAGS #### [facility] [address] [place] [address] Dr. Ashlie Hills UR PROT CREAT RAT 0.44 Normal The [facility] Comment on above: Performed By: #### C VDAGS #### [facility] [address] [place] [address] Dr. Ashlie Hills URINE CREAT 175.15 mg/dL Normal 20.00-300.00 [facility] Comment on above: Performed By: #### C VDAGS #### [facility] [address] [place] [address] Dr. Ashlie Hills CULTURE URINEon 12-25-2021 CULTURE URINE Culture Observations: GREATER THAN TWO ORGANISMS PRESENT, HEAVILY MIXED. PLEASE RESUBMIT CLEAN CATCH MID-STREAM URINE IF CLINICALLY INDICATED. Normal The [facility] Comment on above: Performed By: #### I NFLUAB #### [facility] [address] [place] [address] Dr. Ashlie Hills CBC AUTO DIFFon 12-24-2021 BASO # 0.1 103/ul Normal 0.0-0.1 [facility] Comment on above: Performed By: #### C BC #### [facility] [address] [place] [address] Dr. Ashlie Hills Basophils/100 WBC (Bld) 0.5 % Normal 0.2-2.0 [facility] Comment on above: Performed By: #### C BC #### [facility] [address] [place] [address] Dr. Ashlie Hills EO # 0.4 103/ul Normal 0.0-0.7 [facility] Comment on above: Performed By: #### C BC #### [facility] [address] [place] [address] Dr. Ashlie Hills Eosinophils/100 WBC (Bld) 2.4 % Normal 0.9-7.0 [facility] Comment on above: Performed By: #### C BC #### [facility] [address] [place] [address] Dr. Ashlie Hills Erythrocyte distribution width (RBC) [Ratio] 14.1 % Normal 11.0-15.0 [facility] Comment on above: Performed By: #### C BC #### [facility] [address] [place] [address] Dr. Ashlie Hills Hematocrit (Bld) [Volume fraction] 55.9 % Critically high 36.0-48.0 [facility] Comment on above: Performed By: #### C BC #### [facility] [address] [place] [address] Dr. Ashlie Hills Hemoglobin (Bld) [Mass/Vol] 17.9 g/dL Critically high 12.0-16.0 [facility] Comment on above: Performed By: #### C BC #### [facility] [address] [place] [address] Dr. Ashlie Hills IG # 0.06 10e3/ul Critically high 0.00-0.03 [facility] Comment on above: Performed By: #### C BC #### [facility] [address] [place] [address] Dr. Ashlie Hills IG % 0.4 % Normal 0.0-0.5 [facility] Comment on above: Performed By: #### C BC #### [facility] [address] [place] [address] Dr. Ashlie Hills LYMPH # 5.8 103/ul Critically high 1.2-3.8 [facility] [place] Comment on above: Performed By: #### C BC #### [facility] [address] [place] [address] Dr. Ashlie Hills Lymphocytes/100 WBC (Bld) 35.4 % Normal 20.5-60.0 [facility] Comment on above: Performed By: #### C BC #### [facility] [address] [place] [address] Dr. Ashlie Hills MANUAL DIFF REQ NO Normal [facility] Comment on above: Performed By: #### C BC #### [facility] [address] [place] [address] Dr. Ashlie Hills MCH (RBC) [Entitic mass] 29.4 pg Normal 26.7-34.0 [facility] Comment on above: Performed By: #### C BC #### [facility] [address] [place] [address] Dr. Ashlie Hills MCHC (RBC) [Mass/Vol] 32.0 g/dL Normal 29.9-35.2 [facility] Comment on above: Performed By: #### C BC #### [facility] [id number] Ashlie Hills MCV (RBC) [Entitic vol] 91.8 fL Normal 81.0-99.0 [facility] Comment on above: Performed By: #### C BC #### [facility] [id number] Ashlie Hills MONO # 0.8 103/ul Normal 0.3-0.8 [facility] Comment on above: Performed By: #### C BC #### [facility] [id number] Ashlie Hills Monocytes/100 WBC (Bld) 4.8 % Normal 1.7-12.0 [facility] Comment on above: Performed By: #### C BC #### [facility] [address] [address] [address] Ashlie Hills NEUT # 9.3 103/ul Critically high 1.4-6.5 [facility] [place] Comment on above: Performed By: #### C BC #### [facility] [address] [address] [address] Ashlie Hills Neutrophils/100 WBC (Bld) 56.5 % Normal 43.0-75.0 [facility] Comment on above: Performed By: #### C BC #### [facility] [address] [address] [address] Ashlie Hills Platelet mean volume (Bld) [Entitic vol] 12.9 fL Normal 9.5-13.5 [facility] Comment on above: Performed By: #### C BC #### [facility] [address] [address] [address] Ashlie Hills PLT 127 103/ul Critically low 150-450 [facility] Comment on above: Performed By: #### C BC #### [facility] [id number] Ashlie Hills RBC 6.09 106/ul Critically high 4.20-5.40 [facility] Comment on above: Performed By: #### C BC #### [facility] [address] [place], [place] [address] [address]. Ashlie Hills WBC 16.4 103/ul Critically high 4.0-11.0 [facility] Comment on above: Performed By: #### C #### [facility] [address] [place], [place] [address] ABD/PELVIS WO CONon [...] Severe right hip degenerative change. Normal The [facility] ER URINE PROFILEon 2 Bilirubin Ql (U) Negative Normal NEGATIVE [facility] Comment on above: Performed By: #### EVONNE DIAZ #### [facility] [address] [place] [address] Dr. Ashlie Hills Clarity (U) CLEAR Normal CLEAR The [facility] Comment on above: Performed By: #### MADELINE DIAZRO #### [facility] [address] [place] [address] Dr. Ashlie Hills Color (U) DK. ORANGE Abnormal YELLOW The [facility] Comment on above: Performed By: #### MADELINE DIAZRO #### [facility] [address] [place] [address] Dr. Ashlie HOBBS A micrscopic examination will be performed if indicated. Normal [facility] Comment on above: Performed By: #### MADELINE DIAZRO #### [facility] [address] [place] [address] Dr. Ashlie Hills Glucose Ql (U) 250 mg/dl Abnormal NEGATIVE [facility] Comment on above: Performed By: #### MADELINE DIAZRO #### [facility] [address] [place] [address] Dr. Ashlie Hills Hemoglobin Ql (U) Negative Normal NEGATIVE [facility] Comment on above: Performed By: #### MADELINE DIAZRO #### [facility] [address] [place] [address] Dr. Ashlie Hills Ketones Ql (U) Negative Normal NEGATIVE [facility] Comment on above: Performed By: #### MADELINE DIAZRO #### [facility] [address] [place] [address] Dr. Ashlie Hills LEUKOCYTES Negative Normal NEGATIVE The [facility] Comment on above: Performed By: #### MADELINE DIAZRO #### [facility] [address] [place] [address] Dr. Ashlie Hills Nitrite Ql (U) Negative Normal NEGATIVE [facility] Comment on above: Performed By: #### MADELINE DIAZRO #### [facility] [address] [place] [address] Dr. Ashlie Hills pH (U) 5.0 [pH] Normal 5-9 [facility] Comment on above: Performed By: #### MADELINE DIAZRO #### [facility] [address] [place] [address] Dr. Ashlie Hills Protein (U) [Mass/Vol] 100 mg/dL Abnormal NEGAT YURY/ TRACE [facility] Comment on above: Performed By: #### MADELINE DIAZRO #### [facility] [address] [place] [address] Dr. Ashlie Hills SPEC GRAVITY >=1.030 Abnormal 1.005-<=1.025 [facility] Comment on above: Performed By: #### MADELINE DIAZRO #### [facility] [address] [place] [address] Dr. Ashlie Hills UR MICRO IND INDICATED Normal [facility] Comment on above: Performed By: #### MADELINE DIAZRO #### [facility] [address] [place] [address] Dr. Ashlie Hills Urobilinogen Qn (U) 1.0 {Little'U}/dL Normal 0.2 - 1. 0 [facility] Comment on above: Performed By: #### MADELINE DIAZRO #### [facility] [address] [place] [address] Dr. Ashlie Hills PROF CHEM 8 (BAS METB)on Anion gap [Moles/Vol] 12.1 mmol/L Normal Th [facility] Comment on above: Performed By: #### I NFLUAB #### [facility] [address] [place] [address] Dr. Ashlie Hills Calcium [Mass/Vol] 9.0 mg/dL Normal 8.5-10.1 [facility] Comment on above: Performed By: #### I NFLUAB #### [facility] [address] [address] [address] Ashlie Hills Chloride [Moles/Vol] 101 mmol/L Normal 98-107 [facility] Comment on above: Performed By: #### I NFLUAB #### [facility] [address] [place] [address] Dr. Ashile Hills CO2 [Moles/Vol] 29.1 mmol/L Normal 21.0-32.0 [facility] Comment on above: Performed By: #### I NFLUAB #### [facility] [address] [place] [address] Dr. Ashlie Hills Creatinine [Mass/Vol] 0.86 mg/dL Normal 0.55-1.02 [facility] Comment on above: Performed By: #### I NFLUAB #### [facility] [address] [place] [address] Dr. Ashlie Hills EGFR-AF AZERBAIJANI >60 Normal >=60 [facility] Comment on above: Performed By: #### I NFLUAB #### [facility] [address] [place] [address] Dr. Ashlie Hills EGFR-NON AF AZERBAIJANI >60 Normal >=60 [facility] Comment on above: Performed By: #### I NFLUAB #### [facility] [address] [place] [address] Dr. Ashlie Hills Glucose [Mass/Vol] 236 mg/dL Critically high 74-106 T [facility] Comment on above: Performed By: #### I NFLUAB #### [facility] [address] [place] [address] Dr. Ashlie Hills Potassium [Moles/Vol] 4.2 mmol/L Normal 3.5-5.1 [facility] Comment on above: Performed By: #### I NFLUAB #### [facility] [address] [place] [address] Dr. Ashlie Hills Sodium [Moles/Vol] 138 mmol/L Normal 136-145 [facility] Comment on above: Performed By: #### I NFLUAB #### [facility] [address] [place] [address] Dr. Ashlie Hills Urea nitrogen [Mass/Vol] 11.0 mg/dL Normal 7.0-18.0 [facility] Comment on above: Performed By: #### I NFLUAB #### [facility] [address] [place] [address] Dr. Ashlie Hills Urea nitrogen/Creatinine [Mass ratio] 12.8 mg/mg Normal [facility] Comment on above: Performed By: #### I NFLUAB #### [facility] [address] [place] [address] Dr. Ashlie Hills URINE MICROSCOPIC ONLYon BACTERIA SMALL Abnormal NONE SEEN [facility] Comment on above: Performed By: #### MADELINE DIAZRO #### [facility] [address] [place] [address] Dr. Ashlie Hills Bacteria identified Cx Nom (U) INDICATED Normal [facility] Comment on above: Performed By: #### Tracey LYMAN UMICRO #### [facility] [address] [place] [address] Dr. Ashlie Hills CAST NONE SEEN Normal NONE SEEN [facility] Comment on above: Performed By: #### Tracey LYMAN UMICRO #### [facility] [address] [place] [address] Dr. Ashlie Hills Crystals LM Nom (Urine sed) NONE SEEN Normal NONE SEEN [facility] Comment on above: Performed By: #### Tracey LYMAN UMICRO #### [facility] [address] [place] [address] Dr. Ashlie Hills Epithelial cells LM Ql (Urine sed) MODERATE Abnormal NONE SEEN /RARE [facility] Comment on above: Performed By: #### E RUR, UMICRO #### [facility] [address] [place] [address] Dr. Ashlie Hills MUCOUS NONE SEEN Normal NONE SEEN [facility] Comment on above: Performed By: #### E RUR, UMICRO #### [facility] [address] [address] [address] Ashlie Hills RBC 0-2 Normal 0-2 [facility] Comment on above: Performed By: #### E RUR, UMICRO #### [facility] [address] [address] [address] Ashlie Hills WBC 0-2 Abnormal NONE SEEN The [facility] Comment on above: Performed By: #### E RUR, UMICRO #### [facility] [address] [place] [address] Dr. Ashlie Hills YEAST PRESENT Abnormal NONE SEEN The [facility] Comment on above: Performed By: #### E RUR, UMICRO #### [facility] [address] [place] [address] Dr. Ashlie Hills HIP RIGHT 1 OR 2 VWS WITH PE LVISon 07-20-2020 HIP RIGHT 1 OR 2 VWS WITH PELVIS [facility] Department of Radiology [address] [place] [id number] Patient Name: MITZI MACIAS : 1970 Sex: F Age: Race: White Pt. Location: Patient Status: O Ordered Date: 07/20/2020 1:45:00 PM Completed Date: 07/20/2020 01:57 PM Requesting Provider: LIZ EISENBERG Attending Provider: LIZ EISENBERG Report Copy To: MCKAYLA BLAS Signs & Symptoms: M25.551 Pain in right hip I10 History: [place] Comments: evaluate Exam: HIP RIGHT 1 OR [...] MRI. Electronically signed: Pipo Acevedo. Transcribed by: [email or web address], User Resident: Electronically Signed by: PIPO ACEVEDO @ 07/20/2020 03:45 PM Normal [facility] Comment on above: Order Comment: evalu ate Vital Signs Date Time Vital Sign Value Performing Clinician Facility 01-29-2025 09:48-0400 Body height 170.2 cm Rain Souza MD Work Phone: [facility] 01-29-2025 09:48-0400 Body mass index (BMI) [Ratio] 56.38 kg/m2 Rain Souza MD Work Phone: [facility] 01-29-2025 09:48-0400 Body weight 163.29 kg Rain Souza MD Work Phone: [facility] 01-29-2025 09:48-0400 Diastolic blood pressure 70 mm[Hg] Rain Souza MD Work Phone: [facility] 01-29-2025 09:48-0400 Heart rate 72 /min Rain Souza MD Work Phone: [facility] 01-29-2025 09:48-0400 Respiratory rate 16 /min Rain Souza MD Work Phone: [facility] 01-29-2025 09:48-0400 SaO2% (BldA) [Mass fraction] 84 % Rain Souza MD Work Phone: [facility] 01-29-2025 09:48-0400 Systolic blood pressure 130 mm[Hg] Rain Souza MD Work Phone: [facility] 01-26-2025 18:11-0400 Body mass index (BMI) [Ratio] 58.64 kg/m2 Mckayla Aichholz [employer] Work Phone: [facility] 01-26-2025 18:11-0400 Body temperature 98.49 [degF] Mckayla Aichholz [employer] Work Phone: [facility] 01-26-2025 18:11-0400 Body weight 169.83 kg Mckayla Aichholz [employer] Work Phone: [facility] 01-26-2025 18:11-0400 Diastolic blood pressure 82 mm[Hg] Mckayla Aichholz [employer] Work Phone: [facility] 01-26-2025 18:11-0400 Heart rate 81 /min Mckayla Aichholz [employer] Work Phone: [facility] 01-26-2025 18:11-0400 Respiratory rate 20 /min Mckayla Aichholz [employer] Work Phone: [facility] 01-26-2025 18:11-0400 SaO2% (BldA) [Mass fraction] 90 % Mckayla Aichholz [employer] Work Phone: [facility] 01-26-2025 18:11-0400 Systolic blood pressure 126 mm[Hg] Mckayla Aichholz [employer] Work Phone: [facility] 12-09-2024 10:19-0400 Body temperature 98.01 [degF] Mckayla Aichholz [employer] Work Phone: [facility] 12-09-2024 10:19-0400 Diastolic blood pressure 76 mm[Hg] Mckayla Aichholz [employer] Work Phone: [facility] 12-09-2024 10:19-0400 Heart rate 71 /min Mckayla Aichholz [employer] Work Phone: [facility] 12-09-2024 10:19-0400 Respiratory rate 20 /min Mckayla Aichholz [employer] Work Phone: [facility] 12-09-2024 10:19-0400 SaO2% (BldA) [Mass fraction] 88 % Mckayla Juanjosehholz [employer] Work Phone: [facility] 12-09-2024 10:19-0400 Systolic blood pressure 150 mm[Hg] Mckayla Aichholz [employer] Work Phone: [facility] 10-27-2024 14:11-0400 Body height 170.2 cm Mckayla Juanjosehholz [employer] Work Phone: [facility] 10-27-2024 14:11-0400 Body mass index (BMI) [Ratio] 56.51 kg/m2 Mckayla Juanjosehholz [employer] Work Phone: [facility] 10-27-2024 14:11-0400 Body temperature 98.71 [degF] Mckayla Juanjosehholz [employer] Work Phone: [facility] 10-27-2024 14:11-0400 Body weight 163.66 kg Mckayla Juanjosehholz [employer] Work Phone: [facility] 10-27-2024 14:11-0400 Diastolic blood pressure 74 mm[Hg] Mckayla Juanjosehholz [employer] Work Phone: [facility] 10-27-2024 14:11-0400 Heart rate 75 /min Mckayla Aichholz [employer] Work Phone: [facility] 10-27-2024 14:11-0400 Respiratory rate 18 /min Mckayla Aichholz [employer] Work Phone: [facility] 10-27-2024 14:11-0400 SaO2% (BldA) [Mass fraction] 90 % Mckayla Juanjosehholz [employer] Work Phone: [facility] 10-27-2024 14:11-0400 Systolic blood pressure 132 mm[Hg] Mckayla Blas [employer] Work Phone: [facility] 10-08-2024 11:21-0400 Body height 170.2 cm Rain Souza MD Work Phone: [facility] 10-08-2024 11:21-0400 Body mass index (BMI) [Ratio] 55.91 kg/m2 Rain Souza MD Work Phone: [facility] 10-08-2024 11:21-0400 Body weight 161.93 kg Rain Souza MD Work Phone: [facility] 10-08-2024 11:21-0400 Diastolic blood pressure 70 mm[Hg] Rain Souza MD Work Phone: [facility] 10-08-2024 11:21-0400 Heart rate 70 /min Rain Souza MD Work Phone: [facility] 10-08-2024 11:21-0400 Respiratory rate 16 /min Rain Souza MD Work Phone: [facility] 10-08-2024 11:21-0400 SaO2% (BldA) [Mass fraction] 91 % Rain Souza MD Work Phone: [facility] 10-08-2024 11:21-0400 Systolic blood pressure 130 mm[Hg] Rain Souza MD Work Phone: [facility] 08-27-2024 17:44-0500 Body mass index (BMI) [Ratio] 57.31 kg/m2 Mckayla Blas [employer] Work Phone: [facility] 08-27-2024 17:44-0500 Body temperature 98.01 [degF] Mckayla Blas [employer] Work Phone: [facility] 08-27-2024 17:44-0500 Body weight 165.97 kg Mckayla Patriciadallin [employer] Work Phone: [facility] 08-27-2024 17:44-0500 Diastolic blood pressure 76 mm[Hg] Mckayla Patriciadallin [employer] Work Phone: [facility] 08-27-2024 17:44-0500 Heart rate 83 /min Mckaylajvuenal Patriciadallin [employer] Work Phone: [facility] 08-27-2024 17:44-0500 Respiratory rate 18 /min Mckaylajuvenal Patriciadallin [employer] Work Phone: [facility] 08-27-2024 17:44-0500 SaO2% (BldA) [Mass fraction] 91 % Mckayla Patriciadallin [employer] Work Phone: [facility] 08-27-2024 17:44-0500 Systolic blood pressure 134 mm[Hg] Mckayla Patriciadallin [employer] Work Phone: [facility] 06-11-2024 10:00-0500 Blood Pressure Location Elbert ARAUZ [facility] 06-11-2024 10:00-0500 Diastolic blood pressure 68 mm[Hg] Elbert ARAUZ [facility] 06-11-2024 10:00-0500 Heart rate 76 /min Elbert ARAUZ [facility] 06-11-2024 10:00-0500 Systolic blood pressure 132 mm[Hg] Elbert ARAUZ [facility] 05-27-2024 10:20-0500 Body height 170.2 cm Rain Souza MD Work Phone: [facility] 05-27-2024 10:20-0500 Body mass index (BMI) [Ratio] 56.7 kg/m2 Rain Souza MD Work Phone: [facility] 05-27-2024 10:20-0500 Body weight 164.2 kg Rain Souza MD Work Phone: [facility] 05-27-2024 10:20-0500 Diastolic blood pressure 66 mm[Hg] Rain Souza MD Work Phone: [facility] 05-27-2024 10:20-0500 Heart rate 72 /min Rain Souza MD Work Phone: [facility] 05-27-2024 10:20-0500 Respiratory rate 16 /min Rain Souza MD Work Phone: [facility] 05-27-2024 10:20-0500 Systolic blood pressure 128 mm[Hg] Rain Souza MD Work Phone: [facility] 04-14-2024 10:27-0400 Body height 165.1 cm Mckayla Aichholz [employer] Work Phone: [facility] 04-14-2024 10:27-0400 Body mass index (BMI) [Ratio] 61.01 kg/m2 Mckayla Aichholz [employer] Work Phone: [facility] 04-14-2024 10:27-0400 Body temperature 98.49 [degF] Mckayla Aichholz [employer] Work Phone: [facility] 04-14-2024 10:27-0400 Body weight 166.29 kg Mckayla Aichholz [employer] Work Phone: [facility] 04-14-2024 10:27-0400 Diastolic blood pressure 80 mm[Hg] Mckayla Aichholz [employer] Work Phone: [facility] 04-14-2024 10:27-0400 Heart rate 77 /min Mckayla Aichholz [employer] Work Phone: [facility] 04-14-2024 10:27-0400 Respiratory rate 19 /min Mckayla Aichholz [employer] Work Phone: [facility] 04-14-2024 10:27-0400 SaO2% (BldA) [Mass fraction] 92 % Mckayla Blas [employer] Work Phone: [facility] 04-14-2024 10:27-0400 Systolic blood pressure 116 mm[Hg] Mckayla Blas [employer] Work Phone: [facility] 03-08-2022 15:00-0400 Body height 170.18 cm Stephanie Tico Other [facility] Other 03-08-2022 15:00-0400 Body temperature 97.6 [degF] Stephanie Tico Other [facility] Other 03-08-2022 15:00-0400 Diastolic blood pressure 72 mm[Hg] Stephanie Tico Other [facility] Other 03-08-2022 15:00-0400 Respiratory rate 20 /min Stephanie Tico Other [facility] Other 03-08-2022 15:00-0400 SaO2% (BldA) [Mass fraction] 91 % Stephanie Tico Other [facility] Other 03-08-2022 15:00-0400 Systolic blood pressure 131 mm[Hg] Stephanie Tico Other [facility] Other 02-20-2022 09:20-0400 Body height 170.18 cm Stephanie Tico Other [facility] Other 02-20-2022 09:20-0400 Body temperature 96.5 [degF] Stephanie Tico Other [facility] Other 02-20-2022 09:20-0400 Diastolic blood pressure 69 mm[Hg] Stephanie Tico Other [facility] Other 02-20-2022 09:20-0400 Respiratory rate 20 /min Stephanie Tico Other [facility] Other 02-20-2022 09:20-0400 SaO2% (BldA) [Mass fraction] 91 % Stephanie Tico Other [facility] Other 02-20-2022 09:20-0400 Systolic blood pressure 129 mm[Hg] Stephanie Tico Other [facility] Other 02-06-2022 10:24-0400 Blood Pressure Location Elbert AIT [facility] 02-06-2022 10:24-0400 Diastolic blood pressure 76 mm[Hg] Elbert ARAUZ [facility] 02-06-2022 10:24-0400 Heart rate 70 /min Elbert ARAUZ [facility] 02-06-2022 10:24-0400 Respiratory rate 16 /min Elbert ARAUZ [facility] 02-06-2022 10:24-0400 Systolic blood pressure 134 mm[Hg] Elbert ARAUZ [facility] Encounters Encounter Date Encounter Type Care Provider Facility Start: 03-09-2025 End: 03-09-2025 Refill Mckayla Blas NP Work Phone: [facility] Comment on above: Tobacco user; Encounter for smoking cessation counseling Start: 02-26-2025 ambulatory Flynn Urias DPM F acility:Ortho/[facility] Start: 01-29-2025 End: 01-29-2025 Bamboo flowsheet Rain Souza MD Work Phone: [facility] Start: 01-29-2025 End: 01-29-2025 Bamboo flowsheet Rain Souza MD Work Phone: [facility] Start: 01-29-2025 End: 01-29-2025 Clinisync Result Encounter Generic External Data Provider [facility] External Department Unsolicited Start: 01-29-2025 End: 01-29-2025 ambulatory RAIN SOUZA Not Available Start: 01-29-2025 End: 01-29-2025 Office outpatient visit 25 minutes Rain Souza MD Work Phone: [facility] Comment on above: Encounter for dietar y consultation (Primary Dx); Type 2 diabetes mellitus with hyperglycemia, with long-term current use of insulin ([facility]); Vitamin D deficiency; Primary hypertension ; Insulin long-term use ([facility]); Hyperlipemia, mixed ; Microalbuminuria; Class 3 severe obesity due to excess calories with serious comorbidity and body mass index (BMI) of 50.0 to 59.9 in adult ([facility]-HCC) Start: 01-26-2025 End: 01-26-2025 ambulatory MCKAYLA BLAS Not Available Start: 01-26-2025 End: 01-26-2025 Patient encounter procedure Mckayla Blas [employer] Work Phone: [facility] Comment on above: Encounter for subseq [...] Morbid (severe) obesity due to excess calories (CMS-HCC) Start: 01-06-2025 End: 01-06-2025 ambulatory [facility] Start: 12-18-2024 End: 12-19-2024 Refill Mckayla Blas [employer] Work Phone: [facility] Comment on above: Hyperlipidemia, unsp ecified ; Tobacco user; Encounter for smoking cessation counseling Start: 12-09-2024 End: 12-09-2024 Bamboo flowsheet Mckayla Blas [employer] Work Phone: [facility] Start: 12-09-2024 End: 12-09-2024 Bamboo flowsheet Mckayla Blas [employer] Work Phone: [facility] Start: 12-09-2024 End: 12-09-2024 ambulatory MCKAYLA BLAS Not Available Start: 12-09-2024 End: 12-09-2024 Office outpatient visit 25 minutes Mckayla Blas [employer] Work Phone: [facility] Comment on above: Cellulitis of left l [...] Unsolicited Start: 10-27-2024 End: 10-27-2024 ambulatory MCKAYLA WAN Not Available Start: 10-27-2024 End: 10-27-2024 Office outpatient visit 25 minutes Mckayla Blas NP Work Phone: [facility] Comment on above: Primary hypertension (CMS/HCC) (Primary Dx); Diabetic polyneuropathy associated with type 2 diabetes mellitus ([facility]/HCC); Chronic diastolic heart failure ([facility]/HCC); Bilateral lower extremity edema; Morbid (severe) obesity due to excess calories ([facility]/HCC); Type 2 diabetes mellitus with complication, with long-term current use of insulin ([facility]); Anxiety and depression ([facility]); Cigarette nicotine dependence without complication; Encounter for screening mammogram for malignant neoplasm of breast; Insomnia; Non-seasonal allergic rhinitis, unspecified trigger; Type 2 diabetes mellitus with unspecified complications; Vitamin D deficiency, unspecified; Gastro-esophageal reflux disease without esophagitis; PAD (peripheral artery disease) ([facility]); Gastroesophageal reflux disease, unspecified whether esophagitis present; Venous ulcer of right leg ([facility]) Start: 10-21-2024 End: 10-21-2024 Refill Mckayla Blas NP Work Phone: [facility] Comment on above: Chronic obstructive pulmonary disease, unspecified Start: 10-08-2024 End: 10-08-2024 Clinisync Result Encounter Mckayla Blas NP Work Phone: [facility] External Department Unsolicited Start: 10-08-2024 End: 10-08-2024 Clinisync Result Encounter Mckayla Blas NP Work Phone: [facility] External Department Unsolicited Start: 10-08-2024 End: 10-08-2024 Office outpatient visit 25 minutes Rain Souza MD Work Phone: [facility] Comment on above: Type 2 diabetes asiya itus with hyperglycemia, with long-term current use of insulin ([facility]/HCC) (Primary Dx); Encounter for dietary consultation; Vitamin D deficiency; Primary hypertension ([facility]/HCC); Insulin long-term use ([facility]); Hyperlipemia, mixed (CMS/HCC); Microalbuminuria; Class 3 severe obesity due to excess calories with serious comorbidity and body mass index (BMI) of 50.0 to 59.9 in adult Start: 10-08-2024 End: 10-08-2024 ambulatory RAIN SOUZA Not Available Start: 08-27-2024 End: 08-27-2024 Office outpatient visit 25 minutes Mckayla Blas NP Work Phone: [facility] Comment on above: Anxiety and depressi on [...] current use of insulin (CMS/HCC); Tobacco user; Mixed hyperlipidemia (CMS/HCC); Gout, unspecified cause, unspecified chronicity, unspecified site; Vitamin deficiency; Gastro-esophageal reflux disease without esophagitis; Edema, unspecified; Edema; Hyperlipidemia, unspecified (CMS/HCC); Encounter for smoking cessation counseling; Venous ulcer of right leg (CMS/HCC); Antibiotic-induced yeast infection Start: 08-27-2024 End: 08-27-2024 ambulatory MCKAYLA BLAS Not Available Start: 08-27-2024 End: 08-27-2024 Clinisync Result Encounter Generic External Data Provider [facility] External Department Unsolicited Start: 08-27-2024 End: 08-27-2024 Clinisync Result Encounter Generic External Data Provider [facility] External Department Unsolicited Start: 08-08-2024 End: 08-08-2024 ambulatory [facility] Start: 07-17-2024 End: 07-17-2024 Refill Mckayla Blas [employer] Work Phone: [facility] Start: 07-14-2024 End: 07-14-2024 Office outpatient visit 25 minutes Mckayla Blas NP Work Phone: [facility] Comment on above: Primary hypertension (CMS/HCC) (Primary Dx); Diabetic polyneuropathy associated with type 2 diabetes mellitus (CMS/HCC); Pulmonary emphysema, unspecified emphysema type (CMS/HCC); Critical limb ischemia of right lower extremity (CMS/HCC); PAD (peripheral artery disease) ([facility]); Gastroesophageal reflux disease, unspecified whether esophagitis present; Bilateral lower extremity edema; Venous ulcer of right leg ([facility]/HCC); Type 2 diabetes mellitus with complication, with long-term current use of insulin ([facility]); Tobacco user; Encounter for smoking cessation counseling; Kidney stone; Adrenal mass 1 cm to 4 cm in diameter ([facility]); Radiculopathy, lumbar region; Non-seasonal allergic rhinitis, unspecified trigger; Type 2 diabetes mellitus with unspecified complications ([facility]) Start: 07-14-2024 End: 07-14-2024 ambulatory MCKAYLA BLAS Not Available Start: 07-05-2024 End: 07-07-2024 Refill Mckayla Blas [employer] Work Phone: [facility] Comment on above: Bilateral lower extr emity edema Start: 06-11-2024 ambulatory Elbert ARAUZ Facili ty:[facility] Start: 06-11-2024 End: 06-11-2024 Patient encounter procedure Elbert ARAUZ [facility] Start: 05-27-2024 End: 05-27-2024 Bamboo flowsheet Rain Souza MD Work Phone: [facility] Start: 05-27-2024 End: 05-27-2024 Bamboo flowsheet Rain Souza MD Work Phone: [facility] Start: 05-27-2024 End: 05-27-2024 ambulatory RAIN SOUZA Not Available Start: 05-27-2024 End: 05-27-2024 Office outpatient visit 25 minutes Rain Souza MD Work Phone: [facility] Comment on above: Type 2 diabetes [...] External Department Unsolicited Start: 05-08-2024 ambulatory SARAH Maysi ty:SHEA Villalobos Start: 04-14-2024 End: 04-14-2024 Bamboo flowsheet Mckayla Blas [employer] Work Phone: [facility] Start: 04-14-2024 End: 04-14-2024 Bamboo flowsheet Mckayla Blas [employer] Work Phone: [facility] Start: 04-14-2024 End: 04-14-2024 Office outpatient visit 25 minutes Mckayla Blas NP Work Phone: [facility] Comment on above: Primary hypertension (CMS/HCC) [...] Start: 04-05-2024 End: 04-06-2024 Refill Mckayla Aichholz [employer] Work Phone: [facility] Comment on above: Hyperlipidemia, unsp ecified (CMS/HCC); Bilateral lower extremity edema Vitamin D deficiency , unspecified Start: 01-17-2024 Patient encounter procedure Rain Souza MD Work Phone: [facility] Start: 08-17-2023 Refill Mckayla Aichholz [employer] Work Phone: [facility] Comment on above: Vaginal yeast infect ion (Primary Dx) Start: 08-14-2023 Refill Mckayla Aichholz [employer] Work Phone: [facility] Comment on above: Type 2 diabetes asiya itus with unspecified complications (CMS/HCC); Edema, unspecified; Edema Start: 12-05-2022 ambulatory NARENDRANATH LAKSHMIPATHY . Facility:[facility] Start: 12-05-2022 End: 12-06-2022 Evaluation and management of inpatient UMBERTO HEALYP . Facility:[facility] Start: 11-23-2022 End: 11-23-2022 ambulatory MEAT SPECIALIST MCKAYLA AICHHOLZ Facility:[facility] Start: 11-22-2022 End: 11-23-2022 ambulatory MEAT SPECIALIST MCKAYLA AICHHOLZ Facility:[facility] Start: 11-17-2022 End: 11-18-2022 ambulatory SUBHASH GASPAR . Facility:[facility] Start: 11-15-2022 End: 11-15-2022 Patient encounter procedure SARAH VEGA [facility] Start: 10-05-2022 End: 10-05-2022 ambulatory MARIANO DIAB . Facility:[facility] Start: 09-21-2022 End: 09-21-2022 ambulatory MEAT SPECIALIST MCKAYLA AICHHOLZ Facility:[facility] Start: 09-14-2022 ambulatory RAFAEL GONGORA Facilit y:[facility] Start: 08-24-2022 End: [address] CHAPARRO MORTENSEN . Facility:[facility] Start: 08-21-2022 End: 08-22-2022 ambulatory HATTIE Ramsey [facility] Facility:[facility] Start: 07-27-2022 End: 07-28-2022 ambulatory CECILIA TORRES . Facility:[facility] Start: 07-18-2022 End: 07-19-2022 ambulatory CECILIA BJORNRUCHI . Facility:[facility] Start: 07-18-2022 End: 07-19-2022 ambulatory HATTIE Ramsey [facility] Facility:[facility] Start: 07-06-2022 End: 07-06-2022 ambulatory SAYDA MCKAYLA BLAS Facility:[facility] Start: 05-11-2022 End: 05-12-2022 ambulatory GIL VALENZUELA . Facility:[facility] Start: 04-25-2022 End: 04-25-[address] CHAPARRO MORTENSEN . Facility:[facility] Start: 04-20-2022 End: 04-21-2022 ambulatory GIL VALENZUELA . Facility:[facility] Start: 03-08-2022 End: 03-08-2022 ambulatory Stephanie Tico Other [facility] Other Start: 03-08-2022 Office outpatient vi sit 15 minutes Stephanie Tico [facility] Start: 03-03-2022 End: 03-04-2022 ambulatory SAYDA BLAS Facility:[facility] Start: 02-20-2022 End: 02-20-2022 ambulatory Stephanie Tico Other [facility] Other Start: 02-20-2022 Office outpatient ne w 45 minutes Stephanie Tico [facility] Start: 02-06-2022 End: 02-06-2022 Patient encounter procedure Elbert ARAUZ [facility] Start: 01-19-2022 End: 01-20-2022 ambulatory GIL VALENZUELA . Facility:[facility] Start: 12-24-2021 End: 12-24-2021 ambulatory OLE RAMIREZ Facility:[facility] Start: 08-26-2020 End: 09-10-2020 Patient encounter procedure MARY TAVERAS Facility:[facility] Start: 10-30-2019 End: 10-30-2019 Emergency department patient visit JAMES BENAVIDEZ [facility] Start: 10-30-2019 End: 10-30-2019 Emergency department patient visit James Benavidez [facility] Emergency Department Start: 11-02-2016 Preoperative state Stephanie Tico Other [place] [employer] Other Procedures Date Procedure Procedure Detail [...] HOSPITAL UA (CLEAN/CATCH) MICROSCOPIC IF INDICATE Mckayla Bals [employer] Work Phone: Start: 08-27-2024 ALL CBC WITH [...] in Cervix by Cyto stain Mckayla Blas [employer] Work Phone: H/O: hysterectomy Elbert LARA Laparoscopic cholecystectomy Elbert ARAUZ Operative procedure on foot Elbert ARAUZ Plan of Treatment Date Care Activity Detail Author Start: 02-01-2026 End: 02-01-2026 Patient encounter procedure [facility] Start: 01-26-2026 Medicare Annual Wellness (AWV) Medicare Annual Wellness (AWV) [facility] Start: 10-08-2025 Urine screening for protein Diabetes: Urine Protein Screening [facility] Start: 08-03-2025 Screening for malignant neoplasm of colon [facility] Start: 07-14-2025 Glaucoma screening Diabetes: R etinopathy Screening [facility] Start: 05-28-2025 End: 05-28-2025 Patient encounter procedure [facility] Start: 05-13-2025 Glaucoma screening Diabetes: R etinopathy Screening [facility] Start: 05-01-2025 Hemoglobin A1c measurement Diabetes: Hemoglobin A1C [facility] Start: 04-29-2025 End: 04-29-2025 Patient encounter procedure [facility] Start: 03-09-2025 Influenza vaccination [facility] Start: 01-28-2025 End: 01-28-2025 Patient encounter procedure 01/28/2025 10:50 AM EDT Office Visit [facility] [address] [place] [address] Rain Souza MD [address] [place] [address] [facility] Start: 01-26-2025 End: 01-26-2025 Patient encounter procedure 01/26/2025 6:00 PM EDT Office Visit [facility] [address] [place] [id number] Mckayla Blas NP [address] [place] [address] [facility] Start: 01-16-2025 Medicare Annual Wellness (AWV) Medicare Annual Wellness (AWV) [facility] Start: 01-07-2025 Hemoglobin A1c measurement Diabetes: Hemoglobin A1C [facility] Start: 12-15-2024 End: 12-27-2025 MG Breast - bilateral Screening Bilateral screening mammogram Imaging Routine Encounter for screening mammogram for malignant neoplasm of breast Expected: 12/15/2024 (Approximate), Expires: 12/27/2025 [facility] Work Phone: Comment on above: Expected: 12/15/2024 (Approximate), Expires: 12/27/2025 Start: 12-13-2024 Screening for malignant neoplasm of breast Mammogram [facility] Start: 11-11-2024 Urine screening for protein Diabetes: Urine Protein Screening [facility] Start: 10-27-2024 End: 10-27-2024 Patient encounter procedure 10/27/2024 2:00 PM EDT Office Visit [facility] [address] [place] [phone] Mckayla Blas NP [address] [place] [phone] [facility] Start: 10-08-2024 End: 10-08-2024 Patient encounter procedure 10/08/2024 11:20 AM EDT Office Visit [facility] [address] [place] [address] Rain Souza MD [address] [place] [address] [facility] Start: 08-27-2024 End: 08-27-2024 Patient encounter procedure 08/27/2024 5:30 PM EST Office Visit [facility] [address] [place] [phone] Mckayla Blas NP [address] [place] [phone] [facility] Start: 08-27-2024 End: 08-27-2025 25-hydroxyvitamin D3 [Mass/volume] in Serum or Plasma Vitamin D 25 hydroxy Lab Routine Vitamin deficiency Expected: 08/27/2024 (Approximate), Expires: 08/27/2025 [facility] Comment on above: Expected: 08/27/2024 (Approximate), Expires: 08/27/2025 Start: 08-27-2024 Hemoglobin A1c measurement Diabetes: Hemoglobin A1C [facility] Start: 08-27-2024 End: 08-27-2025 Hepatic function 2000 panel - Serum or Plasma Hepatic function panel Lab Routine Hyperlipidemia, unspecified ([facility]/HCC) Expected: 08/27/2024 (Approximate), Expires: 08/27/2025 [facility] Comment on above: Expected: 08/27/2024 (Approximate), Expires: 08/27/2025 Start: 08-27-2024 End: 08-27-2025 Lipid 1996 panel - Serum or Plasma Lipid panel Lab Routine Mixed hyperlipidemia ([facility]/HCC) Expected: 08/27/2024 (Approximate), Expires: 08/27/2025 [facility] Work Phone: Comment on above: Expected: 08/27/2024 (Approximate), Expires: 08/27/2025 Start: 08-27-2024 End: 08-27-2025 Microalbumin/Creatini ne panel in random Urine Microalbumin / creatinine, urine ratio Lab Routine Primary hypertension ([facility]) Type 2 diabetes mellitus with complication, with long-term current use of insulin ([facility]) Expected: 08/27/2024 (Approximate), Expires: 08/27/2025 [facility] Comment on above: Expected: 08/27/2024 (Approximate), Expires: 08/27/2025 Start: 08-27-2024 End: 08-27-2025 Urate [Mass/volume] in Serum or Plasma Uric acid Lab Routine Gout, unspecified cause, unspecified chronicity, unspecified site Expected: 08/27/2024 (Approximate), Expires: 08/27/2025 [facility] Comment on above: Expected: 08/27/2024 (Approximate), Expires: 08/27/2025 Start: 08-27-2024 End: 08-27-2025 Urinalysis complete panel - Urine Urinalysis with reflex microscopic (clean catch) Lab Routine Primary hypertension ([facility]) Type 2 diabetes mellitus with complication, with long-term current use of insulin ([facility]) Tobacco user Gout, unspecified cause, unspecified chronicity, unspecified site Expected: 08/27/2024 (Approximate), Expires: 08/27/2025 [facility] Comment on above: Expected: 08/27/2024 (Approximate), Expires: 08/27/2025 Start: 08-26-2024 End: 08-26-2024 Patient encounter procedure 08/26/2024 10:30 AM EST Office Visit [facility] [address] [place] [address] Rain Souza MD [address], [address] [place] [address] [facility] Start: 07-14-2024 End: 07-14-2024 Patient encounter procedure 07/14/2024 6:30 PM EST Office Visit [facility] [address] [place] [address] Mckayla Blas NP [address] [place] [address] [facility] Start: 07-14-2024 End: 07-14-2024 Patient encounter procedure 07/14/2024 10:10 AM EST Office Visit [facility] [address] [place] [address] Rain Souza MD [address], [address] [place] [address] [facility] Start: 06-06-2024 Influenza vaccination Influenza Vacc ine (#1) [facility] Comment on above: Postponed from 03/09 (Patient Refused) Start: 05-27-2024 End: 05-27-2024 Patient encounter procedure 05/27/2024 9:50 AM EST Office Visit [facility] [address] [place] [address] Rain Souza MD [address] [place] [address] [facility] Start: 05-17-2024 Hemoglobin A1c measurement Diabetes: Hemoglobin A1C [facility] Start: 05-15-2024 End: 05-15-2024 Chart abstracting 05/15/2024 Abstract [facility] [address] [place] [address] Rain Souza MD [address] [place] [address] [facility] Start: 05-15-2024 End: 05-15-2024 Patient encounter procedure 05/15/2024 11:20 AM EST Office Visit [facility] [address] [place] [address] Rain Souza MD [address], [address] [place] [address] [facility] Start: 04-17-2024 End: 04-17-2024 Patient encounter procedure 04/17/2024 3:40 PM EDT Office Visit [facility] [address] [place] [address] Mckayla Blas NP [address] [place] [address] [facility] Start: 04-14-2024 End: 04-14-2024 Patient encounter procedure 04/14/2024 11:00 AM EDT Office Visit [facility] [address] [place] [address] Mckayla Blas, RAPID [employer]SOLE STITCHER [address] [place] [address] Arrived [facility] Comment on above: Arrived Start: 03-09-2024 Influenza vaccination Influenza Vacc ine (#1) [facility] Start: 02-19-2024 Hemoglobin A1c measurement Diabetes: Hemoglobin A1C [facility] Start: 11-24-2023 Urine screening for protein Diabetes: Urine Protein Screening [facility] Start: 11-23-2023 Screening for malignant neoplasm of breast Mammogram [facility] Start: 10-15-2023 End: 10-15-2023 Patient encounter procedure 10/15/2023 4:30 PM EDT Office Visit [facility] [address] [place] [address] Mckayla Blas NP [address] [place] [address] [facility] Start: 08-09-2023 Hemoglobin A1c measurement Diabetes: Hemoglobin A1C [facility] Start: 05-27-2021 Glaucoma screening Diabetes: R etinopathy Screening [facility] Start: 03-09-2020 Influenza vaccination Flu vacc ine (Season Ended) [place], [place] Start: 10-07-2018 Screening for malignant neoplasm of cervix [facility] Start: 2010 Lipid panel Lipid screen [place], [place] Start: 2000 Screening for malignant neoplasm of cervix HPV/Cotest [facility] Start: 1991 Screening for malignant neoplasm of cervix Cervical cancer screen [place], [place] Start: 1989 DTaP/Tdap/Td vaccine (1 - Tdap) DTaP/Tdap/Td vaccine (1 - Tdap) [place], [place] Start: 1985 HIV screening HIV screen [place], [place] Start: 1970 Medicare Annual Wellness (AWV) Medicare Annual Wellness (AWV) [facility] Start: 1970 Screening for malignant neoplasm of colon [facility] BLOOD CULTURE 1 BLOOD CULTURE 1 Lab Routine 12/04/2024 4:44 PM EDT [facility] BLOOD CULTURE 2 BLOOD CULTURE 2 Lab Routine 12/04/2024 5:28 PM EDT [facility] Immunizations Immunization Date Immunization Notes Care Provider Judie lucas 05-18-2023 influenza, injectabl e, quadrivalent, contains preservative Mckayla Blas NP Work Phone: [facility] 05-18-2023 influenza virus vacc ine, unspecified formulation Rain Souza MD Work Phone: [facility] 07-19-2021 SARS-CoV-2 (COVID-19 ) mRNA BNT-162b2 vax Edtri[employer] [facility] 10-28-2020 SARS-CoV-2 (COVID-19 ) mRNA BNT-162b2 vax Edtrips [facility] 10-08-2020 SARS-CoV-2 (COVID-19 ) mRNA BNT-162b2 vax SARAH SILVIA [facility] 04-16-2017 influenza virus vacc ine, H5N1, A/ (national stockpile) Mckayla Blas [employer] Work Phone: [facility] 04-16-2017 influenza virus vacc ine, unspecified formulation Rain Souza MD Work Phone: [facility] 04-16-2017 influenza, unspecifi ed formulation Elbert ARAUZ [facility] 04-16-2017 pneumococcal polysaccharide vaccine, 23 valent Rani Souza MD Work Phone: [facility] 05-10-2016 influenza virus vacc ine, H5N1, A/ (national stockpile) Mckayla Blas NP Work Phone: [facility] 05-10-2016 influenza virus vacc ine, unspecified formulation Rain Souza MD Work Phone: [facility] 05-10-2016 influenza, unspecifi ed formulation Elbert ARAUZ [facility] 05-02-2013 influenza virus vacc ine, whole virus Rain Souza MD Work Phone: [facility] 05-02-2013 influenza, injectabl e, quadrivalent, contains preservative Mckayla Blas [employer]ITCH[employer] Work Phone: [facility] 05-02-2013 influenza, whole Elbert BARBARA ERS [facility] 01-29-1998 measles, mumps and rubella virus vaccine Rain Souza MD Work Phone: [facility] Payers Date Payer Category Payer Unknown [id number] 2023 Medicare (Managed Care) 1.2. [id number] 2023 Private Health Insurance [id number] 2023 Medicare [id number] 2018 Medicaid MEDICAID [facility] [id number] 2018-Present [phone] [address] [place] [address] Medicaid [id number] 2013 Medicare [id number] 1970 Unknown [id number] 2.16.840.1.329555.3.579.2.6 47 1970 Unknown [id number] 2.16.840.1.062898.3.579.2.5 93 1970 Unknown [id number] 2.16.840.1.542358.3.579.2.5 93 1970 Unknown [id number] 2.16.840.1.201714.3.579.2.5 93 1970 Unknown [id number] 2.16.840.1.333935.3.579.2.5 93 1970 Unknown [id number] 2.16.840.1.459361.3.579.2.5 93 1970 Unknown [id number] 2.16.840.1.443293.3.579.2.5 93 1970 Unknown [id number] 2.16.840.1.783048.3.579.2.5 93 1970 Unknown [id number] 2.16.840.1.960539.3.579.2.5 93 1970 Unknown [id number] 2.16.840.1.904991.3.579.2.5 93 1970 Unknown [id number] 2.16.840.1.831715.3.579.2.5 93 1970 Unknown [id number] 2.16.840.1.136275.3.579.2.5 93 1970 Unknown [id number] 2.16.840.1.544481.3.579.2.5 93 1970 Unknown [id number] 2.16.840.1.269812.3.579.2.5 93 1970 Unknown [id number] 2.16.840.1.987930.3.579.2.5 93 1970 Unknown [id number] 2.16.840.1.919028.3.579.2.5 93 1970 Unknown [id number] 2.16.840.1.520829.3.579.2.5 93 1970 Unknown [id number] 2.16.840.1.202488.3.579.2.5 93 1970 Unknown [id number] 2.16.840.1.759428.3.579.2.5 93 1970 Unknown [id number] 2.16.840.1.817960.3.579.2.5 93 1970 Unknown [id number] 2.16.840.1.719240.3.579.2.5 93 1970 Unknown [id number] 2.16.840.1.582524.3.579.2.5 93 1970 Unknown [id number] 2.16.840.1.334188.3.579.2.5 93 1970 Unknown [id number] 2.16.840.1.094166.3.579.2.7 27 1970 Unknown [id number] 2.16.840.1.928467.3.579.2.7 27 1970 Unknown [id number] 2.16.840.1.369167.3.579.2.1 259 1970 Unknown [id number] 2.16.840.1.721180.3.579.2.1 259 1970 Unknown [id number] 2.16.840.1.261427.3.579.2.1 259 1970 Unknown [id number] 2.16.840.1.461643.3.579.2.1 259 1970 Unknown [id number] 2.16.840.1.890532.3.579.2.1 259 1970 Unknown [id number] 2.16.840.1.912195.3.579.2.1 259 1970 Unknown [id number] 2.16.840.1.742950.3.579.2.1 259 1970 Unknown [id number] 2.16.840.1.265214.3.579.2.1 259 1970 Unknown [id number] 2.16.840.1.294159.3.579.2.1 259 1970 Unknown [id number] 2.16.840.1.352751.3.579.2.1 96 1959 Medicaid [id number] 1959 Private Health Insurance [id number] 1959 Unknown [id number] 2.16.840.1.245462.19 Social History Date Type Detail Facility Start: 02-17-2014 End: 01-29-2025 Tobacco smoking status NHIS Current every day smoker [place], [place] Start: 02-17-1994 History of tobacco use Cigarette Smo ker [place], [place] Start: 02-17-2014 End: 08-26-2024 Cigarettes smoked current (pack per day) - Reported [place] Start: 02-17-2014 Alcohol intake Current drinke r of alcohol (finding) [place] Start: 02-17-2014 Alcohol Comment Rare [place], [place] Start: 1970 Sex Assigned At Not on file [place] Exposure to SARS-CoV -2 (event) Unable to assess [place] Start: 02-06-2022 Tobacco smoking status Smoker (findi ng) [facility] Start: 07-10-2023 End: 08-26-2024 Sex Assigned At Female [facility] Start: 11-15-2022 End: 06-11-2024 Tobacco smoking status Heavy tobacco smoker (finding) [facility] Start: 07-10-2023 End: 01-29-2025 Tobacco use [...] Equipment Origin al Text Equipment Identifier Dates [id number] Start: 01-18-2024 USE TO TEST BLOO D SUGAR 4 TIMES DAILY [id number] Start: 07-07-2024 Functional Status Date Assessment Result Facility 01-26-2025 Patient Health Quest ionnaire 2 item (PHQ-2) [Reported] [facility] 01-26-2025 Trouble falling or s taying asleep, or sleeping too much Not at all 01/26/2025 4:13 PM EDT Mychart, Generic Not at all [facility] 01-26-2025 Feeling tired or hav ing little energy Not at all 01/26/2025 4:13 PM EDT Mychart, Generic Not at all [facility] 01-26-2025 Poor appetite or overeating Not at all 01/26/2025 4:13 PM EDT Mychart, Generic Not at all [facility] 01-26-2025 Feeling bad about yourself-or that you are a failure or have let yourself or your family down Not at all 01/26/2025 4:13 PM EDT Mychart, Generic Not at all [facility] 01-26-2025 Trouble concentratin g on things, such as reading the newspaper or watching television Not at all 01/26/2025 4:13 PM EDT Mychart, Generic Not at all [facility] 01-26-2025 Moving or speaking s o slowly that other people could have noticed. Or the opposite - being so fidgety or restless that you have been moving around a lot more than usual Not at all 01/26/2025 4:13 PM EDT Mychart, Generic Not at all [facility] 01-26-2025 Thoughts that you wo uld be better off , or of hurting yourself in some way Not at all 01/26/2025 4:13 PM EDT Mychart, Generic Not at all [facility] 06-11-2024 Functional Status N/A [facility] 11-15-2022 Functional Status N/A [facility] 02-06-2022 Functional Status N/A [facility] Clinical Notes 01-19-2022 to 02-04-2025 Rain Souza [...] planned in 6 months. Thanks! [facility] 01-29-2025 History of Present illness Narrative [...] 25 mg, Oral, 2 times daily HYDROcodone-acetaminophen ([place]) 5-325 MG tablet 1 tablet, 3 times [...] 09/17/2023 Angiomyolipoma Anxiety and depression 07/10/2023 Asthma ([facility]) 07/10/2023 Body mass index (BMI) 50.0-59.9, adult ([facility]) Cellulitis of left lower extremity Cervical cancer ([facility]) 09/17/2023 Chronic pain of both knees 09/17/2023 COPD (chronic obstructive pulmonary disease) ([facility]) 07/10/2023 COPD exacerbation ([facility]) 09/17/2023 Decreased functional mobility 09/17/2023 Diabetic neuropathy ([facility]) 07/10/2023 Dietary counseling and surveillance Edema 07/10/2023 Elevated sed rate Elevated WBC count Essential (primary) hypertension GERD (gastroesophageal reflux disease) 09/17/2023 Hyperlipidemia 09/17/2023 Hypertension 07/10/2023 Insomnia 09/17/2023 group home (current) use of insulin ([facility]) Lower extremity edema 09/17/2023 Mixed hyperlipidemia Morbid (severe) obesity due to excess calories ([facility]) Obstructive sleep apnea 07/10/2023 PAD (peripheral artery disease) 09/17/2023 Pancreatitis ([facility]) 09/17/2023 Pneumonia 09/17/2023 Proteinuria, unspecified Pulmonary hypertension ([facility]) 09/17/2023 Radiculopathy, lumbar region 09/17/2023 Tobacco user 09/17/2023 Type 2 diabetes mellitus with complication, with long-term current use of insulin ([facility]) 07/10/2023 Unilateral primary osteoarthritis, right hip 09/17/2023 [...] (BMI) of 50.0 to 59.9 in adult ([facility]) Diet and exercise reviewed with the patient Follow up in about 4 months (around 06/01/2025). 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 Associated Problem(s): COPD (chronic [...] 25 mg, Oral, 2 times daily HYDROcodone-acetaminophen ([place]) 5-325 MG tablet 1 tablet, 3 times [...] 07/10/2023 Body mass index (BMI) 50.0-59.9, adult ([facility]) Cellulitis of left lower extremity Cervical cancer (HCC) 09/17/2023 Chronic pain of both knees 09/17/2023 COPD (chronic obstructive pulmonary disease) ([facility]) 07/10/2023 COPD exacerbation ([facility]) 09/17/2023 Decreased functional mobility 09/17/2023 Diabetic neuropathy ([facility]) 07/10/2023 Dietary counseling and surveillance Edema 07/10/2023 Elevated sed rate Elevated WBC count Essential (primary) hypertension GERD (gastroesophageal reflux disease) 09/17/2023 Hyperlipidemia 09/17/2023 Hypertension 07/10/2023 Insomnia 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 ([facility]) Lower extremity edema 09/17/2023 Mixed hyperlipidemia Morbid (severe) obesity due to excess calories ([facility]) Obstructive sleep apnea 07/10/2023 PAD (peripheral artery disease) 09/17/2023 Pancreatitis ([facility]) 09/17/2023 Pneumonia 09/17/2023 Proteinuria, unspecified Pulmonary hypertension ([facility]) 09/17/2023 Radiculopathy, lumbar region 09/17/2023 Tobacco user 09/17/2023 Type 2 diabetes mellitus with complication, with long-term current use of insulin ([facility]) 07/10/2023 Unilateral primary osteoarthritis, right hip 09/17/2023 [...] List Items Addressed This Visit Diabetic neuropathy ([facility]) Continue with cintia hudson mgmt is prescribing OARRS reviewed Fu in 3 months Goal: tighter glucose control, this has been improving, latest A1c is 7.4%!!! 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 Hypertension Please check blood pressure daily and record DASH diet Limit caffeine Take medication as directed Contact office if chest pain, pressure, dizziness, shortness of breath, swelling legs Recommend slow position changes Current meds: hydralazine, lisinopril, Relevant Medications hydrALAZINE (Apresoline) 25 MG tablet lisinopril 20 MG tablet Type 2 diabetes mellitus with complication, with long-term current use of insulin ([facility]) Check blood sugars daily, notify if <70 [...] MG tablet Pulmonary hypertension (HCC) Has seen [facility] Cardiology Hyperlipidemia On statin therapy Check [...] Morbid (severe) obesity due to excess calories ([facility]) Discussed with patient their BMI (actual, [...] Associated Problem(s): Pulmonary hypertension (HCC) Has seen [facility] Cardiology Associated Problem(s): Hypertension Please check [...] yearly basis documented in this encounter [facility] 01-26-2025 Instructions Mckayla Blas NP - 01/26/2025 6:00 PM EDT Please call the [facility] to schedule your mammogram: [phone]- ext [phone] documented in this encounter [facility] 01-06-2025 Note Cardiovascular Medic ine [facility] SUBJECTIVE Chief Complaint Patient presents with Congestive Heart Failure Hypertension Hyperlipidemia Mitzi Macias is a 54 y.o. female here for follow-up. PMHx: HFpEF, HTN, HLD, DM, longstanding heavy smoker, COPD, DANIEL, morbid obesity HPI 01/06/2025 Since last seen she was admitted to [facility] for AMS on 12/05/2024. 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 ([facility]/HCC) group home current use of inhaled steroid Vitamin D deficiency, unspecified Vitamin deficiency Past Medical History: Diagnosis Date COPD (chronic obstructive pulmonary disease) ([facility]HCC) Diabetes mellitus ([facility]) Hyperlipidemia Hypertension Sleep apnea Family History Problem [...] , Rfl: ergocalciferol (Vitamin D-2) 1.25 MG (36766 Units) capsule, Take 1.25 mg by mouth., [...] and at bedtime., Disp: , Rfl: HYDROcodone-acetaminophen ([place]) 5-325 mg tablet, TAKE 1 TABLET BY MOUTH THREE TIMES A DAY NEEDED FOR PAIN MUST LAST 30 DAYS, Disp: , Rfl: insulin aspart (NovoLOG) 100 unit/mL (3 mL) injection pen, Novolog Flexpen U-100 Insulin aspart 100 unit/mL (3 mL) subcutaneous, Disp: , Rfl: insulin glargine (Lantus Solostar U-100 Insulin) 100 unit/mL (3 mL) injection pen (more content not included)... [facility] 01-06-2025 Note Patient is here toda [...] Cardiovascular: Positive for leg swelling. [facility] 12-09-2024 History of Present illness Narrative [...] 25 mg, Oral, 2 times daily HYDROcodone-acetaminophen ([place]) 5-325 MG tablet 1 tablet, 3 times [...] CT Albuminuria 09/17/2023 Angiomyolipoma Anxiety and depression ([facility]) 07/10/2023 Asthma 07/10/2023 Body mass index (BMI) 50.0-59.9, adult ([facility]) Cellulitis of left lower extremity Cervical cancer ([facility]) 09/17/2023 Chronic pain of both knees 09/17/2023 COPD (chronic obstructive pulmonary disease) ([facility]) 07/10/2023 COPD exacerbation ([facility]) 09/17/2023 Decreased functional mobility 09/17/2023 Diabetic neuropathy ([facility]) 07/10/2023 Dietary counseling and surveillance Edema 07/10/2023 Elevated sed rate Elevated WBC count Essential (primary) hypertension ([facility]) GERD (gastroesophageal reflux disease) 09/17/2023 Hyperlipidemia ([facility]) 09/17/2023 Hypertension ([facility]) 07/10/2023 Insomnia 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 ([facility] Lower extremity edema 09/17/2023 Mixed hyperlipidemia ([facility]) Morbid (severe) obesity due to excess calories ([facility]) Obstructive sleep apnea 07/10/2023 PAD (peripheral artery disease) ([facility]) 09/17/2023 Pancreatitis 09/17/2023 Pneumonia 09/17/2023 Proteinuria, unspecified Pulmonary hypertension ([facility]) 09/17/2023 Radiculopathy, lumbar region 09/17/2023 Tobacco user 09/17/2023 Type 2 diabetes mellitus with complication, with long-term current use of insulin ([facility]) 07/10/2023 Unilateral primary osteoarthritis, right hip 09/17/2023 [...] Problem List Items Addressed This Visit Hypertension ([facility]) Please check blood pressure daily and record DASH diet Limit caffeine Take medication as directed Contact office if chest pain, pressure, dizziness, shortness of breath, swelling legs Recommend slow position changes Current meds: hydralazine, lisinopril, Type 2 diabetes mellitus with complication, with long-term current use of insulin ([facility]) Check blood sugars daily, notify if <70 [...] secondary to her steroids Anxiety and depression ([facility]/HCC) Current meds: elavil, duloxtine, COPD exacerbation (CMS/HCC) Recent ER visit for unresponsiveness , found to have fever and elevated WBC Sent home with steroids and atb Breathing is better and she feels back to her normal baseline Does have home O2, she is not wearing this today Pulmonary hypertension ([facility]) Has seen [facility] Cardiology Morbid (severe) obesity due to excess calories ([facility]) Discussed with patient their BMI (actual, verses [...] Finish atb's Associated Problem(s): Anxiety and depression ([facility]) Current meds: elavil, duloxtine, Associated Problem(s): Type 2 diabetes mellitus with complication, with long-term current use of insulin ([facility]) Check blood sugars daily, notify if <70 [...] Associated Problem(s): Pulmonary hypertension (CMS/HCC) Has seen [facility] Cardiology Associated Problem(s): Hypertension (CMS/HCC) Please [...] this today documented in this encounter [facility] 12-09-2024 Instructions Mckayla Blas NP - 12/09/2024 10:00 AM EDT Keep appt with wound care today Keep fu with me, sooner if needed documented in this encounter [facility] 10-27-2024 History of Present illness Narrative Associated [...] 25 mg, Oral, 2 times daily HYDROcodone-acetaminophen ([place]) 5-325 MG tablet 1 tablet, 3 times [...] CT Albuminuria 09/17/2023 Angiomyolipoma Anxiety and depression (CMS/HCC) 07/10/2023 Asthma 07/10/2023 Body mass index (BMI) 50.0-59.9, adult ([facility] Cellulitis of left lower extremity Cervical cancer ([facility]) 09/17/2023 Chronic pain of both knees 09/17/2023 COPD (chronic obstructive pulmonary disease) ([facility]) 07/10/2023 COPD exacerbation ([facility]) 09/17/2023 Decreased functional mobility 09/17/2023 Diabetic neuropathy ([facility]) 07/10/2023 Dietary counseling and surveillance Edema 07/10/2023 Elevated sed rate Elevated WBC count Essential (primary) hypertension ([facility]) GERD (gastroesophageal reflux disease) 09/17/2023 Hyperlipidemia ([facility]) 09/17/2023 Hypertension ([facility]) 07/10/2023 Insomnia 09/17/2023 group home (current) use of insulin ([facility]) Lower extremity edema 09/17/2023 Mixed hyperlipidemia ([facility]) Morbid (severe) obesity due to excess calories ([facility]) Obstructive sleep apnea 07/10/2023 PAD (peripheral artery disease) ([facility]) 09/17/2023 Pancreatitis 09/17/2023 Pneumonia 09/17/2023 Proteinuria, unspecified Pulmonary hypertension ([facility]) 09/17/2023 Radiculopathy, lumbar region 09/17/2023 Tobacco user 09/17/2023 Type 2 diabetes mellitus with complication, with long-term current use of insulin ([facility]) 07/10/2023 Unilateral primary osteoarthritis, right hip 09/17/2023 [...] List Items Addressed This Visit Diabetic neuropathy ([facility]) - Primary Continue with cintia hudson mgmt is prescribing OARRS reviewed Fu in 3 months Goal: tighter glucose control, this has been improving, latest A1c is 7.4%!!! Hypertension ([facility]) Please check blood pressure daily and record DASH diet Limit caffeine Take medication as directed Contact office if chest pain, pressure, dizziness, shortness of breath, swelling legs Recommend slow position changes Current meds: hydralazine, lisinopril, Relevant Medications hydrALAZINE (Apresoline) 25 MG tablet lisinopril 20 MG tablet Type 2 diabetes mellitus with complication, with long-term current use of insulin ([facility]) Check blood sugars daily, notify if <70 [...] Relevant Medications ergocalciferol (Vitamin D2) 1.25 MG (44097 UT) capsule Gastro-esophageal reflux disease without esophagitis [...] is 7.4%!!! documented in this encounter [facility] 10-27-2024 Instructions Mckayla Blas NP - 10/27/2024 2:00 PM EDT No dose changes in meds You will be due for mammogram I will send order to [facility], they should call you to schedule If no call, please call [phone] documented in this encounter [facility] 10-08-2024 History of Present illness Narrative Images [...] or chew. ergocalciferol (Vitamin D2) 1.25 MG (73319 UT) capsule TAKE 1 CAPSULE BY MOUTH [...] 25 mg, Oral, 2 times daily HYDROcodone-acetaminophen ([place]) 5-325 MG tablet 1 tablet, 3 times [...] CT Albuminuria 09/17/2023 Angiomyolipoma Anxiety and depression ([facility]) 07/10/2023 Asthma ([facility]) 07/10/2023 Body mass index (BMI) 50.0-59.9, adult ([facility]) Cellulitis of left lower extremity Cervical cancer ([facility]) 09/17/2023 Chronic pain of both knees 09/17/2023 COPD (chronic obstructive pulmonary disease) ([facility]) 07/10/2023 COPD exacerbation ([facility]) 09/17/2023 Decreased functional mobility 09/17/2023 Diabetic neuropathy ([facility]) 07/10/2023 Dietary counseling and surveillance Edema 07/10/2023 Elevated sed rate Elevated WBC count Essential (primary) hypertension ([facility]) GERD (gastroesophageal reflux disease) 09/17/2023 Hyperlipidemia ([facility]) 09/17/2023 Hypertension ([facility]) 07/10/2023 Insomnia 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 ([facility]) Lower extremity edema 09/17/2023 Mixed hyperlipidemia ([facility]) Morbid (severe) obesity due to excess calories ([facility]) Obstructive sleep apnea 07/10/2023 PAD (peripheral artery disease) ([facility]) 09/17/2023 Pancreatitis 09/17/2023 Pneumonia 09/17/2023 Proteinuria, unspecified Pulmonary hypertension ([facility]) 09/17/2023 Radiculopathy, lumbar region 09/17/2023 Tobacco user 09/17/2023 Type 2 diabetes mellitus with complication, with long-term current use of insulin ([facility]) 07/10/2023 Unilateral primary osteoarthritis, right hip 09/17/2023 [...] hyperglycemia, with long-term current use of insulin ([facility]) - POCT glucose manually resulted - POCT glycosylated hemoglobin (Hb A1C) docked device We will continue with Lantus 58, lispro 02-16-12 according to meal size, Mounjaro 15 mg once weekly, Farxiga 5 mg once a day. Encounter for dietary consultation Vitamin D deficiency Primary hypertension (CMS/HCC) Insulin long-term use (CMS/HCC) Hyperlipemia, mixed (CMS/[facility]) Microalbuminuria Class 3 severe obesity due to excess calories with serious comorbidity and body mass index (BMI) of 50.0 to 59.9 in adult Diet and exercise reviewed with the patient Follow up in about 4 months (around 02/07/2025). documented in this encounter [facility] 08-27-2024 History of Present illness Narrative Associated [...] or chew. ergocalciferol (Vitamin D2) 1.25 MG (73752 UT) capsule TAKE 1 CAPSULE BY MOUTH [...] 25 mg, Oral, 2 times daily HYDROcodone-acetaminophen ([place]) 5-325 MG tablet 1 tablet, 3 times [...] CT Albuminuria 09/17/2023 Angiomyolipoma Anxiety and depression ([facility]) 07/10/2023 Asthma ([facility]) 07/10/2023 Body mass index (BMI) 50.0-59.9, adult ([facility]) Cellulitis of left lower extremity Cervical cancer ([facility]) 09/17/2023 Chronic pain of both knees 09/17/2023 COPD (chronic obstructive pulmonary disease) ([facility]) 07/10/2023 COPD exacerbation ([facility]) 09/17/2023 Decreased functional mobility 09/17/2023 Diabetic neuropathy ([facility]) 07/10/2023 Dietary counseling and surveillance Edema 07/10/2023 Elevated sed rate Elevated WBC count Essential (primary) hypertension ([facility]) GERD (gastroesophageal reflux disease) 09/17/2023 Hyperlipidemia ([facility]) 09/17/2023 Hypertension ([facility]) 07/10/2023 Insomnia 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 ([facility]) Lower extremity edema 09/17/2023 Mixed hyperlipidemia ([facility]) Morbid (severe) obesity due to excess calories ([facility]) Obstructive sleep apnea 07/10/2023 PAD (peripheral artery disease) ([facility]) 09/17/2023 Pancreatitis 09/17/2023 Pneumonia 09/17/2023 Proteinuria, unspecified Pulmonary hypertension ([facility]) 09/17/2023 Radiculopathy, lumbar region 09/17/2023 Tobacco user 09/17/2023 Type 2 diabetes mellitus with complication, with long-term current use of insulin ([facility]) 07/10/2023 Unilateral primary osteoarthritis, right hip 09/17/2023 [...] List Items Addressed This Visit Diabetic neuropathy ([facility]) Continue with cintia hudson is prescribing OARRS reviewed Fu in 3 months Goal: tighter glucose control Hypertension ([facility]) Please check blood pressure daily and record [...] complication, with long-term current use of insulin ([facility]) Check blood sugars daily, notify if <70 [...] / creatinine, urine ratio Anxiety and depression ([facility]) - Primary Current meds: elavil, duloxtine, PHQ [...] PPI Malignant neoplasm of cervix uteri, unspecified ([facility]) Had in the past, had hysterectomy Tobacco user The patient has been advised of the risks of continued smoking: stroke, KS, all forms of cancer, lung disease, and [...] of the risks of continued smoking: stroke, KS, all forms of cancer, lung disease, and [...] Associated Problem(s): COPD (chronic obstructive pulmonary disease) ([facility]/HCC) Follows with verena Needs smoking cessation Current meds: duoneb, albuterol, daliresp, Associated Problem(s): Asthma ([facility]) Current meds: albuterol, duoneb, 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 Associated Problem(s): Obstructive sleep [...] glucose control documented in this encounter [facility] 08-08-2024 Note [place] [facility] - [facility] Subjective Mitzi Macias is [...] Diagnosis Date COPD (chronic obstructive pulmonary disease) ([facility]/HCC) Diabetes mellitus ([facility]) Hyperlipidemia Hypertension Sleep apnea Past Surgical History: [...] by mouth at bedtime., Disp: , Rfl: Mikaela Aerosphere 160-9-4.8 mcg/actuation HFA aerosol inhaler, INHALE [...] , Rfl: ergocalciferol (Vitamin D-2) 1.25 MG (48956 Units) capsule, Take 1.25 mg by mouth., [...] and at bedtime., Disp: , Rfl: HYDROcodone-acetaminophen ([place]) 5-325 mg tablet, TAKE 1 TABLET BY [...] Disp: (more content not included)... [facility] 07-14-2024 History of Present illness Narrative [...] original note were not included. [place] from [facility] Urologist appt: CT scan , mass adrenal [...] or chew. ergocalciferol (Vitamin D2) 1.25 MG (01944 UT) capsule TAKE 1 CAPSULE BY MOUTH ONE TIME PER WEEK furosemide (LASIX) 40 mg, Oral, Daily furosemide (LASIX) 20 mg, Oral, Daily PRN, Take in the afternoon as needed hydrALAZINE (APRESOLINE) 25 mg, Oral, 2 times daily HYDROcodone-acetaminophen ([place]) 5-325 MG tablet 1 tablet, 3 times [...] CT Albuminuria 09/17/2023 Angiomyolipoma Anxiety and depression ([facility]) 07/10/2023 Asthma ([facility]) 07/10/2023 Body mass index (BMI) 50.0-59.9, adult ([facility]) Cellulitis of left lower extremity Cervical cancer ([facility]) 09/17/2023 Chronic pain of both knees 09/17/2023 COPD (chronic obstructive pulmonary disease) ([facility]) 07/10/2023 COPD exacerbation ([facility]) 09/17/2023 Decreased functional mobility 09/17/2023 Diabetic neuropathy ([facility]) 07/10/2023 Dietary counseling and surveillance Edema 07/10/2023 Elevated sed rate Elevated WBC count Essential (primary) hypertension ([facility]) GERD (gastroesophageal reflux disease) 09/17/2023 Hyperlipidemia ([facility]) 09/17/2023 Hypertension ([facility]) 07/10/2023 Insomnia 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 ([facility]) Lower extremity edema 09/17/2023 Mixed hyperlipidemia ([facility]) Morbid (severe) obesity due to excess calories ([facility]) Obstructive sleep apnea 07/10/2023 PAD (peripheral artery disease) ([facility]) 09/17/2023 Pancreatitis 09/17/2023 Pneumonia 09/17/2023 Proteinuria, unspecified Pulmonary hypertension ([facility]) 09/17/2023 Radiculopathy, lumbar region 09/17/2023 Tobacco user 09/17/2023 Type 2 diabetes mellitus with complication, with long-term current use of insulin ([facility]) 07/10/2023 Unilateral primary osteoarthritis, right hip 09/17/2023 [...] List Items Addressed This Visit Diabetic neuropathy ([facility]) Continue with lyrica OARRS reviewed Fu in 3 months COPD (chronic obstructive pulmonary disease) ([facility]) Stable at this time, no changes in meds Encouraged smoking cessation Cont with dr Yañez Hypertension ([facility]) - Primary Please check blood pressure daily and record DASH diet Limit caffeine Take medication as directed Contact office if chest pain, pressure, dizziness, shortness of breath, swelling legs Recommend slow position changes Current meds: hydralazine, lisinopril, Type 2 diabetes mellitus with complication, with long-term current use of insulin ([facility]) Check blood sugars daily, notify if <70 [...] take over prescribing PAD (peripheral artery disease) ([facility]) Asa, statin Quit smoking BP and DM [...] of the risks of continued smoking: stroke, [place], all forms of cancer, lung disease, and [...] 1 cm to 4 cm in diameter ([facility]) Continue with Urology Kidney stone Continue with Urology Non-seasonal allergic rhinitis Relevant Medications cetirizine (ZyrTEC) 10 MG tablet Critical limb ischemia of right lower extremity ([facility]) Saw vascular, does have narrowing in arteries in legs, and thus the wounds not healing At this point they strongly urge to quit smoking or risk limb amputation Cont asa and statin Also good blood pressure and sugar control Venous ulcer of right leg ([facility]) Encounter for smoking cessation counseling Relevant Medications nicotine (Nicoderm, Step 1) 21 MG/24HR patch Other Visit Diagnoses Type 2 diabetes mellitus with unspecified complications ([facility]) Quitting smokinppd, chantix not helped, ] Face time with pt, spent 15 minutes with pt Associated Problem(s): Tobacco user The patient has been advised of the risks of continued smoking: stroke, [place], all forms of cancer, lung disease, and [...] complication, with long-term current use of insulin ([facility]) Check blood sugars daily, notify if <70 [...] PPI Associated Problem(s): PAD (peripheral artery disease) ([facility]) Asa, statin Quit smoking BP and DM control Associated Problem(s): Hypertension (CMS/[facility]) Please check blood pressure daily and record DASH diet Limit caffeine Take medication as directed Contact office if chest pain, pressure, dizziness, shortness of breath, swelling legs Recommend slow position changes Current meds: hydralazine, lisinopril, Associated Problem(s): COPD (chronic obstructive pulmonary disease) (CMS/HCC) Stable at this time, no changes in meds Encouraged smoking cessation Cont with dr Yañez Associated Problem(s): Diabetic neuropathy (CMS/[facility]) Continue with tristan [place]AST reviewed Fu in 3 months documented in this encounter [facility] 06-11-2024 Hospital Discharge instructions Patient Education 06/11/2024 [...] require a prescription. You can also purchase [id number] medicines. Medicines may have nicotine in them [...] and encouragement. Call telephone quitlines, such as 1-283-NIJZ-NOW, reach out to support groups, or work [...] provider. Document Revised: 06/16/2022 Document Reviewed: 06/16/2022 [employer] Patient Education 2023 [employer]. 06/11/2024 10:39:22 Dietary Guidelines to Help Prevent [...] include: ?8 oz (237 mL) of milk, gnkueet-ptuyjxkiufco-zvbvp milk, and calcium-fortifiedfruit juice. Calcium-fortified means that [...] ?Spinach (cooked), rhubarb, beets, sweet potatoes, and [place] chard. ?Peanuts. ?Potato chips, finnish fries, and baked potatoes with skin on. ?Nuts and nut products. ?Chocolate. If you regularly take a diuretic medicine, make sure to eat at least 1 or 2 servings of fruits or vegetables that are high in potassium each day. These include: ?Avocado. ?Banana. ?[place], prune, carrot, or tomato juice. ?Baked potato. [...] magnesium, fish oil, or vitamin B6. Take dgff-rpf-akzjudc and prescription medicines only as told by [...] provider. Document Revised: 10/05/2022 Document Reviewed: 10/05/2022 [employer] Patient Education 2023 [employer]. Follow Up Care 05/06/2024 08:24:56 With:Elbert ARAUZ MD, URL Address: [facility] [address] , [place] [address]- When: Unknown [facility] 05-27-2024 History of Present illness [...] or chew. ergocalciferol (Vitamin D2) 1.25 MG (05321 UT) capsule TAKE 1 CAPSULE BY MOUTH ONE TIME PER WEEK furosemide (LASIX) 20 mg, Oral, Daily PRN, Take in the afternoon as needed furosemide (LASIX) 40 mg, Oral, Daily Glucose Blood (ACCU-CHEK JAQUI PLUS ) 4 times daily hydrALAZINE (APRESOLINE) 25 mg, Oral, 2 times daily HYDROcodone-acetaminophen ([place]) 5-325 MG tablet 1 tablet, 3 times [...] CT Albuminuria 09/17/2023 Angiomyolipoma Anxiety and depression ([facility]) 07/10/2023 Asthma ([facility]) 07/10/2023 Body mass index (BMI) 50.0-59.9, adult ([facility]) Cellulitis of left lower extremity Cervical cancer ([facility]) 09/17/2023 Chronic pain of both knees 09/17/2023 COPD (chronic obstructive pulmonary disease) ([facility]) 07/10/2023 COPD exacerbation ([facility]) 09/17/2023 Decreased functional mobility 09/17/2023 Diabetic neuropathy ([facility]) 07/10/2023 Dietary counseling and surveillance Edema 07/10/2023 Elevated sed rate Elevated WBC count GERD (gastroesophageal reflux disease) 09/17/2023 Hyperlipidemia ([facility]) 09/17/2023 Hypertension ([facility]) 07/10/2023 Insomnia 09/17/2023 group home (current) 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 of insulin ([facility]) Lower extremity edema 09/17/2023 Morbid (severe) obesity due to excess calories ([facility]) Obstructive sleep apnea 07/10/2023 PAD (peripheral artery disease) ([facility]) 09/17/2023 Pancreatitis 09/17/2023 Pneumonia 09/17/2023 Proteinuria, unspecified Pulmonary hypertension ([facility]) 09/17/2023 Radiculopathy, lumbar region 09/17/2023 Tobacco user 09/17/2023 Type 2 diabetes mellitus with complication, with long-term current use of insulin ([facility]) 07/10/2023 Unilateral primary osteoarthritis, right hip 09/17/2023 [...] hyperglycemia, with long-term current use of insulin ([facility]) - POCT glucose manually resulted - POCT glycosylated hemoglobin (Hb A1C) docked device We will continue with Lantus 58, lispro 02/16/12 according to meal size, Mounjaro 15 mg once weekly, Farxiga 5 mg once a day Encounter for dietary consultation Vitamin D deficiency Primary hypertension ([facility]) To follow with her PCP Insulin long-term use ([facility]) Hyperlipemia, mixed ([facility]) Continue with Zocor 10 mg once daily Microalbuminuria Class 3 severe obesity due to excess calories with serious comorbidity and body mass index (BMI) of 50.0 to 59.9 in adult ([facility]) Diet and exercise reviewed with the patient Follow up in about 3 months (around 08/27/2024). documented in this encounter [facility] 04-14-2024 History of Present illness Narrative Associated Problem(s): Hyperpigmentation of skin Will try cerevue ointment to see if helps Associated Problem(s): Tobacco user Urged to quit Associated Problem(s): Type 2 diabetes mellitus with complication, with long-term current use of insulin ([facility]) Check blood sugars daily, follow w Endo. [...] being taken. 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 Hypertension This [...] or chew. ergocalciferol (Vitamin D2) 1.25 MG (40394 UT) capsule TAKE 1 CAPSULE BY MOUTH ONE TIME PER WEEK furosemide (LASIX) 20 mg, Oral, Daily PRN, Take in the afternoon as needed furosemide (LASIX) 40 mg, Oral, Daily Glucose Blood (ACCU-CHEK JAQUI PLUS ) 4 times daily HumaLOG KWIKPEN 100 UNIT/ML injection Subcutaneous hydrALAZINE (APRESOLINE) 25 mg, Oral, 2 times daily HYDROcodone-acetaminophen ([place]) 5-325 MG tablet 1 tablet, 3 times [...] CT Albuminuria 09/17/2023 Angiomyolipoma Anxiety and depression ([facility]) 07/10/2023 Asthma ([facility]) 07/10/2023 Cellulitis of left lower extremity Cervical cancer ([facility]) 09/17/2023 Chronic pain of both knees 09/17/2023 COPD (chronic obstructive pulmonary disease) ([facility]) 07/10/2023 COPD exacerbation ([facility]) 09/17/2023 Decreased functional mobility 09/17/2023 Diabetic neuropathy ([facility]) 07/10/2023 Edema 07/10/2023 Elevated sed rate Elevated WBC count GERD (gastroesophageal reflux disease) 09/17/2023 Hyperlipidemia ([facility]) 09/17/2023 Hypertension ([facility]) 07/10/2023 Insomnia 09/17/2023 Lower extremity edema 09/17/2023 Obstructive sleep apnea 07/10/2023 PAD (peripheral artery disease) ([facility]) 09/17/2023 Pancreatitis 09/17/2023 Pneumonia 09/17/2023 Pulmonary hypertension ([facility] [facility] 09/17/2023 Radiculopathy, lumbar region 09/17/2023 Tobacco user 09/17/2023 Type 2 diabetes mellitus with complication, with long-term current use of insulin ([facility] 07/10/2023 Unilateral primary osteoarthritis, right hip 09/17/2023 [...] List Items Addressed This Visit Diabetic neuropathy ([facility]) Continue with tristan EAST reviewed Fu in 3 months Relevant Medications pregabalin (Lyrica) 300 MG capsule COPD (chronic obstructive pulmonary disease) ([facility]) - Primary Stable at this time, no changes in meds Encouraged smoking cessation Cont with dr Yañez Hypertension ([facility]) Stable on current meds Refill meds Relevant Medications hydrALAZINE (Apresoline) 25 MG tablet lisinopril 20 MG tablet Type 2 diabetes mellitus with complication, with long-term current use of insulin ([facility]) Check blood sugars daily, follow w Endo. [...] this encounter [facility] 11-15-2022 Hospital Discharge instructions Patient Education 11/15/2022 [...] include: ?8 oz (237 mL) of milk, npkyhmj-lxoakkfjyeyl-dvkxk milk, and calcium-fortifiedfruit juice. Calcium-fortified means that [...] ?Spinach (cooked), rhubarb, beets, sweet potatoes, and [place] chard. ?Peanuts. ?Potato chips, finnish fries, and baked potatoes with skin on. ?Nuts and nut products. ?Chocolate. If you regularly take a diuretic medicine, make sure to eat at least 1 or 2 servings of fruits or vegetables that are high in potassium each day. These include: ?Avocado. ?Banana. ?[place], prune, carrot, or tomato juice. ?Baked potato. [...] magnesium, fish oil, or vitamin B6. Take dyxc-wnd-hldgylt and prescription medicines only as told by [...] provider. Document Revised: 03/06/2022 Document Reviewed: 03/06/2022 [employer] Patient Education 2022 [employer]. Follow Up Care 02/06/2022 11:44:09 With:SILVIA HOWELL, SARAH Webb, URL Address: [address] [place] [address] [facility] [place] [address] When: Unknown [facility] 08-24-2022 Note CONSULTATION CONSULTATION DATE: 08/24/2022 HISTORY [...] We maintain her on pain medication with [place] 5/325 t.i.d., diclofenac 75 mg b.i.d. Her [...] her at this point. A refill for [place] 5/325 t.i.d. and diclofenac 75 mg b.i.d. will be sent to the pharmacy. Vitamin compliance and nutrition were discussed and enforced. I did highly encourage her to use exercise bands to increase the strength in her lower extremities. We will see her in three months' time, unless otherwise indicated, and patient agrees. [facility] 05-11-2022 Note CONSULTATION CONSULTATION DATE: [...] 150. Medications include Lyrica 300 mg b.i.d., [place] 5/325 t.i.d., diclofenac 75 mg b.i.d. and [...] her medications today. We will maintain Lyrica, [place] and diclofenac at the set dose and frequency. We will follow-up in the clinic in three months' time. The patient is in agreement to this. Vitamin importance and nutrition were discussed. [facility] 04-20-2022 Note CONSULTATION CONSULTATION DATE: [...] medications include Tylenol, Lyrica 300 mg b.i.d., [place] 5/325 t.i.d., amitriptyline, diclofenac and duloxetine. Patient's [...] be followed up in the clinic. [facility] 03-08-2022 Evaluation note Encounter Date [...] to the DANIEL. Thrombocytopenia is unclear etiology. [facility] Other 08-15-2022 Evaluation note* Encounter Date Diagnosis [...] follow with Dr. Souza and Dr. Arauz. [place] [employer] Other 08-01-2022 Hospital Discharge instructions Patient [...] fried and sweet foods. General instructions Take mhev-mrx-axqlnka and prescription medicines only as told by [...] 04/21/2010 Document Revised: 10/16/2019 Document Reviewed: 07/11/2018 [employer] Patient Education 2020 [employer]. Follow Up Care 01/05/2022 12:02:03 With:REGLA PHIPPS, Elbert Joya, URL Address: [facility] [address] , [place] [address]- [phone] When:Within 6 Month(s) Comments:w/ repeat CT [facility] NoteCONSULTATION PROCEDURE DATE: 01/19/2022 PRE AND [...] the patient tolerated it well. [facility] Signed and Approved by: GIL VALENZUELA . 01/27/2022 14:15:00[facility]07-14-2022 NoteCONSULTATION CONSULTATION DATE: 01/19/2022 This [...] today. Medications include Lyrica 300 mg b.i.d., [place] 5/325 t.i.d., diclofenac 75 mg b.i.d. and [...] months' time unless otherwise indicated. [facility] Signed and Approved by: GIL VALENZUELA . 01/27/2022 14:15:00[facility] Future Appointments Appointment Date:08/14/2022 09:15:00 AM Scheduled Provider:Elbert ARAUZ MD Location:[facility] Appointment Type:URO Office Visit [facility] evaluation + Plan note Future Appointments Appointment Date:04/22/2024 10:00:00 AM Scheduled Provider:SARAH VEGA PA-C Location:[facility] Appointment Type:URO Office Visit [facility] evaluation note* Diagnosis Type 2 diabetes mellitus with unspecified complications ([facility]) Edema, unspecified Edema [facility] encounter [facility] Diagnosis Vaginal yeast infection- Primary Candidiasis of vulva and vagina documented in this encounter [facility]* Diagnosis Primary hypertension (CMS/HCC)- Primary Unspecified essential hypertension Insomnia Insomnia, unspecified Type 2 diabetes mellitus with complication, with long-term current use of insulin ([facility]) Non-seasonal allergic rhinitis, unspecified trigger Type 2 [...] complication, with long-term current use of insulin ([facility]) Anxiety and depression (CMS/[facility]) Bilateral lower extremity edema Pulmonary emphysema, unspecified emphysema type ([facility]/HCC)- Primary Primary hypertension ([facility]) Unspecified essential hypertension Class 3 severe obesity with serious comorbidity and body mass index (BMI) of 50.0 to 59.9 in adult, unspecified obesity type ([facility]) Obstructive sleep apnea Obstructive sleep apnea (adult) (pediatric) Pulmonary hypertension ([facility]) Other chronic pulmonary heart diseases Tobacco user Tobacco use disorder Cardiomegaly Primary hypertension ([facility])- Primary Unspecified essential hypertension Gastroesophageal reflux disease, unspecified whether esophagitis present Type 2 diabetes mellitus with complication, with long-term current use of insulin ([facility]) Mixed hyperlipidemia ([facility]) Mixed hyperlipidemia Tobacco user Tobacco use disorder Encounter for screening mammogram for malignant neoplasm of breast Chronic obstructive pulmonary disease, unspecified ([facility]) Other specified chronic obstructive pulmonary disease ([facility]) Anxiety and depression ([facility]) Edema, unspecified Edema Hyperlipidemia, unspecified ([facility]) Diabetic polyneuropathy associated with type 2 diabetes mellitus ([facility]) Gout, unspecified cause, unspecified chronicity, unspecified site Non-seasonal allergic rhinitis, unspecified trigger Bilateral lower extremity edema COPD exacerbation ([facility]) Obstructive chronic bronchitis with exacerbation Pulmonary emphysema, unspecified emphysema type ([facility]) Venous insufficiency Unspecified venous (peripheral) insufficiency Candidiasis of breast COPD exacerbation ([facility])- Primary Obstructive chronic bronchitis with exacerbation Pulmonary hypertension ([facility]) Other chronic pulmonary heart diseases Class 3 severe obesity with serious comorbidity and body mass index (BMI) of 50.0 to 59.9 in adult, unspecified obesity type ([facility]) Encounter for subsequent annual wellness visit (AWV) in Medicare patient- Primary Type 2 diabetes mellitus with unspecified complications ([facility]) Pulmonary emphysema, unspecified emphysema type ([facility] Moderate persistent asthma without complication ([facility]) Primary hypertension ([facility]) Unspecified essential hypertension Type 2 diabetes mellitus with complication, with long-term current use of insulin ([facility]) Class 3 severe obesity with serious comorbidity and body mass index (BMI) of 50.0 to 59.9 in adult, unspecified obesity type ([facility]) Tobacco user Tobacco use disorder Other headache syndrome Malignant neoplasm of cervix uteri, unspecified ([facility]) Other specified disorders of adrenal gland ([facility]) Major depressive disorder, single episode, mild (HCC) ([facility]) Major depressive disorder, single episode, mild 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 exposed ([facility]) Chronic respiratory failure, unspecified whether with hypoxia or hypercapnia ([facility]) Disorder of adrenal gland, unspecified ([facility]) Non-pressure chronic ulcer of other part of right lower leg limited to breakdown of skin ([facility]) Non-recurrent acute suppurative otitis media of left ear without spontaneous rupture of tympanic membrane Primary hypertension ([facility])- Primary Unspecified essential hypertension Insomnia Insomnia, unspecified Type 2 diabetes mellitus with complication, with long-term current use of insulin ([facility]) Non-seasonal allergic rhinitis, unspecified trigger Type 2 diabetes mellitus with unspecified complications ([facility]) Anxiety and depression ([facility]) Gastro-esophageal reflux disease without esophagitis Edema, unspecified Edema Diabetic polyneuropathy associated with type 2 diabetes mellitus ([facility]) Chronic obstructive pulmonary disease, unspecified ([facility]) Pulmonary emphysema, unspecified emphysema type ([facility]) Bilateral lower extremity edema Tobacco user Tobacco use disorder Hyperpigmentation of skin Other dyschromia Type 2 diabetes mellitus with hyperglycemia, with long-term current use of insulin ([facility])- Primary Encounter for dietary consultation Vitamin D deficiency Primary hypertension ([facility]) Unspecified essential hypertension Insulin long-term use ([facility]) Encounter for long-term (current) use of insulin Hyperlipemia, mixed ([facility]) Mixed hyperlipidemia Microalbuminuria Proteinuria Class 3 severe obesity due to excess calories with serious comorbidity and body mass index (BMI) of 50.0 to 59.9 in adult ([facility]) documented [facility]* Diagnosis Hyperlipidemia, unspecified ([facility]) Bilateral lower extremity edema documented in this encounter [facility]* Diagnosis Vitamin D deficiency, unspecified documented in this encounter [facility]* Diagnosis Obstructive sleep apnea- Primary Obstructive sleep apnea (adult) (pediatric) Pulmonary emphysema, unspecified emphysema type ([facility]) Primary hypertension ([facility]) Unspecified essential hypertension Type 2 diabetes mellitus with complication, with long-term current use of insulin (CMS/HCC) Anxiety and depression (CMS/HCC) Bilateral lower extremity [...] of breast Chronic obstructive pulmonary disease, unspecified ([facility]) Other specified chronic obstructive pulmonary disease (CMS/HCC) Anxiety and depression (CMS/HCC) Edema, unspecified Edema Hyperlipidemia, unspecified ([facility]) Diabetic polyneuropathy associated with type 2 diabetes mellitus ([facility]) Gout, unspecified cause, unspecified chronicity, unspecified site [...] to 59.9 in adult, unspecified obesity type ([facility]/HCC) Encounter for subsequent annual wellness visit (AWV) in Medicare patient- Primary Type 2 diabetes mellitus with unspecified complications (CMS/HCC) Pulmonary emphysema, unspecified emphysema type (CMS/HCC) Moderate persistent asthma without complication (CMS/HCC) Primary hypertension (CMS/HCC) Unspecified essential hypertension Type 2 diabetes mellitus with complication, with long-term current use of insulin ([facility]) Class 3 severe obesity with serious comorbidity [...] Type 2 diabetes mellitus with unspecified complications ([facility]) Anxiety and depression (CMS/[facility]) Gastro-esophageal reflux disease without esophagitis Edema, unspecified Edema Diabetic polyneuropathy associated with type 2 diabetes mellitus ([facility]) Chronic obstructive pulmonary disease, unspecified (CMS/[facility]) Pulmonary emphysema, unspecified emphysema type ([facility]) Bilateral lower extremity edema Tobacco user Tobacco use disorder Hyperpigmentation of skin Other dyschromia Bilateral lower extremity edema documented in [facility]* Diagnosis Obstructive sleep apnea- Primary Obstructive sleep apnea (adult) (pediatric) Pulmonary emphysema, unspecified emphysema type (CMS/HCC) Primary hypertension ([facility]) Unspecified essential hypertension Type 2 diabetes mellitus with complication, with long-term current use of insulin ([facility]) Anxiety and depression (CMS/[facility]) Bilateral lower extremity edema Pulmonary emphysema, unspecified emphysema type (CMS/HCC)- Primary Primary hypertension ([facility]) Unspecified essential hypertension Class 3 severe obesity [...] complication, with long-term current use of insulin ([facility]) Mixed hyperlipidemia (CMS/HCC) Mixed hyperlipidemia Tobacco user [...] Type 2 diabetes mellitus with unspecified complications ([facility]) Anxiety and depression ([facility]) Gastro-esophageal reflux disease without esophagitis Edema, unspecified Edema Diabetic polyneuropathy associated with type 2 diabetes mellitus ([facility]) Chronic obstructive pulmonary disease, unspecified ([facility]) Pulmonary emphysema, unspecified emphysema type ([facility]/HCC) Bilateral lower extremity edema Tobacco user Tobacco use disorder Hyperpigmentation of skin Other dyschromia Primary hypertension ([facility])- Primary Unspecified essential hypertension Diabetic polyneuropathy associated with type 2 diabetes mellitus ([facility]) Pulmonary emphysema, unspecified emphysema type ([facility]) Critical limb ischemia of right lower extremity ([facility]) PAD (peripheral artery disease) ([facility]) Unspecified peripheral vascular disease Gastroesophageal reflux disease, unspecified whether esophagitis present Bilateral lower extremity edema Venous ulcer of right leg ([facility]) Type 2 diabetes mellitus with complication, with long-term current use of insulin ([facility]) Tobacco user Tobacco use disorder Encounter for smoking cessation counseling Kidney stone Calculus of kidney Adrenal mass 1 cm to 4 cm in diameter ([facility]) Radiculopathy, lumbar region Thoracic or lumbosacral neuritis or radiculitis, unspecified Non-seasonal allergic rhinitis, unspecified trigger Type 2 diabetes mellitus with unspecified complications ([facility]) documented in this encounter [facility]* Diagnosis Obstructive sleep apnea- Primary Obstructive sleep apnea (adult) (pediatric) Pulmonary emphysema, unspecified emphysema type ([facility]) Primary hypertension ([facility]) Unspecified essential hypertension Type 2 diabetes mellitus with complication, with long-term current use of insulin ([facility]) Anxiety and depression ([facility]) Bilateral lower extremity edema Pulmonary emphysema, unspecified emphysema type ([facility])- Primary Primary hypertension ([facility]) Unspecified essential hypertension Class 3 severe obesity with serious comorbidity and body mass index (BMI) of 50.0 to 59.9 in adult, unspecified obesity type ([facility]) Obstructive sleep apnea Obstructive sleep apnea (adult) (pediatric) Pulmonary hypertension ([facility]) Other chronic pulmonary heart diseases Tobacco user Tobacco use disorder Cardiomegaly Primary hypertension ([facility])- Primary Unspecified essential hypertension Gastroesophageal reflux disease, unspecified whether esophagitis present Type 2 diabetes mellitus with complication, with long-term current use of insulin ([facility]) Mixed hyperlipidemia (CMS/HCC) Mixed hyperlipidemia Tobacco user [...] to 59.9 in adult, unspecified obesity type ([facility]) Encounter for subsequent annual wellness visit (AWV) in Medicare patient- Primary Type 2 diabetes mellitus with unspecified complications (CMS/HCC) Pulmonary emphysema, unspecified emphysema type (CMS/HCC) Moderate persistent asthma without complication (CMS/HCC) Primary hypertension ([facility]) Unspecified essential hypertension Type 2 diabetes mellitus with complication, with long-term current use of insulin ([facility]) Class 3 severe obesity with serious comorbidity [...] Type 2 diabetes mellitus with unspecified complications ([facility]) Anxiety and depression ([facility]) Gastro-esophageal reflux disease without esophagitis Edema, unspecified Edema Diabetic polyneuropathy associated with type 2 diabetes mellitus ([facility]) Chronic obstructive pulmonary disease, unspecified ([facility]) Pulmonary emphysema, unspecified emphysema type ([facility]) Bilateral lower extremity edema Tobacco user Tobacco use disorder Hyperpigmentation of skin Other dyschromia Primary hypertension ([facility])- Primary Unspecified essential hypertension Diabetic polyneuropathy associated with type 2 diabetes mellitus ([facility]) Pulmonary emphysema, unspecified emphysema type ([facility]) Critical limb ischemia of right lower extremity ([facility]) PAD (peripheral artery disease) ([facility]) Unspecified peripheral vascular disease Gastroesophageal reflux disease, unspecified whether esophagitis present Bilateral lower extremity edema Venous ulcer of right leg ([facility]) Type 2 diabetes mellitus with complication, with long-term current use of insulin ([facility]) Tobacco user Tobacco use disorder Encounter for smoking cessation counseling Kidney stone Calculus of kidney Adrenal mass 1 cm to 4 cm in diameter ([facility]) Radiculopathy, lumbar region Thoracic or lumbosacral neuritis or radiculitis, unspecified Non-seasonal allergic rhinitis, unspecified trigger Type 2 diabetes mellitus with unspecified complications ([facility]) Anxiety and depression ([facility])- Primary Morbid (severe) obesity due to excess calories ([facility]) Body mass index (BMI) 50.0-59.9, adult ([facility]) Malignant neoplasm of cervix uteri, unspecified ([facility]) Diabetic polyneuropathy associated with type 2 diabetes mellitus ([facility] Chronic diastolic heart failure ([facility] Chronic diastolic heart failure Primary hypertension ([facility]) Unspecified essential hypertension 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 ([facility]) Gastroesophageal reflux disease, unspecified whether esophagitis present Bilateral lower extremity edema Type 2 diabetes mellitus with complication, with long-term current use of insulin ([facility]) Tobacco user Tobacco use disorder Mixed hyperlipidemia ([facility]) Mixed hyperlipidemia Gout, unspecified cause, unspecified chronicity, unspecified site Vitamin deficiency Unspecified vitamin deficiency Gastro-esophageal reflux disease without esophagitis Edema, unspecified Edema Hyperlipidemia, unspecified ([facility]) Encounter for smoking cessation counseling Venous ulcer of right leg ([facility]) Antibiotic-induced yeast infection documented in this encounter [facility] HealthcareEvaluation note* Diagnosis Obstructive sleep apnea- Primary Obstructive sleep apnea (adult) (pediatric) Pulmonary emphysema, unspecified emphysema type ([facility]) Primary hypertension ([facility]) Unspecified essential hypertension Type 2 diabetes mellitus with complication, with long-term current use of insulin ([facility]) Anxiety and depression ([facility]) Bilateral lower extremity edema Pulmonary emphysema, unspecified emphysema type ([facility])- Primary Primary hypertension ([facility]) Unspecified essential hypertension Class 3 severe obesity with serious comorbidity and body mass index (BMI) of 50.0 to 59.9 in adult, unspecified obesity type Obstructive sleep apnea Obstructive sleep apnea (adult) (pediatric) Pulmonary hypertension ([facility]) Other chronic pulmonary heart diseases Tobacco user Tobacco use disorder Cardiomegaly Primary hypertension ([facility])- Primary Unspecified essential hypertension Gastroesophageal reflux disease, unspecified whether esophagitis present Type 2 diabetes mellitus with complication, with long-term current use of insulin ([facility]) Mixed hyperlipidemia ([facility]) Mixed hyperlipidemia Tobacco user Tobacco use disorder Encounter for screening mammogram for malignant neoplasm of breast Chronic obstructive pulmonary disease, unspecified Other specified chronic obstructive pulmonary disease Anxiety and depression ([facility]) Edema, unspecified Edema Hyperlipidemia, unspecified ([facility]) Diabetic polyneuropathy associated with type 2 diabetes mellitus ([facility]) Gout, unspecified cause, unspecified chronicity, unspecified site Non-seasonal allergic rhinitis, unspecified trigger Bilateral lower extremity edema COPD exacerbation ([facility]) Obstructive chronic bronchitis with exacerbation Pulmonary emphysema, unspecified emphysema type ([facility]) Venous insufficiency Unspecified venous (peripheral) insufficiency Candidiasis of breast COPD exacerbation ([facility])- Primary Obstructive chronic bronchitis with exacerbation Pulmonary hypertension ([facility]) Other chronic pulmonary heart diseases Class 3 severe obesity with serious comorbidity and body mass index (BMI) of 50.0 to 59.9 in adult, unspecified obesity type Encounter for subsequent annual wellness visit (AWV) in Medicare patient- Primary Type 2 diabetes mellitus with unspecified complications Pulmonary emphysema, unspecified emphysema type ([facility]) Moderate persistent asthma without complication ([facility]) Primary hypertension ([facility]) Unspecified essential hypertension Type 2 diabetes mellitus with complication, with long-term current use of insulin ([facility]) Class 3 severe obesity with serious comorbidity and body mass index (BMI) of 50.0 to 59.9 in adult, unspecified obesity type Tobacco user Tobacco use disorder Other headache syndrome Malignant neoplasm of cervix uteri, unspecified Other specified disorders of adrenal gland Major depressive disorder, single episode, mild (HCC) ([facility]) Major depressive disorder, single episode, mild 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 exposed Chronic respiratory failure, unspecified whether with hypoxia or hypercapnia Disorder of adrenal gland, unspecified Non-pressure chronic ulcer of other part of right lower leg limited to breakdown of skin ([facility]) Non-recurrent acute suppurative otitis media of left ear without spontaneous rupture of tympanic membrane Primary hypertension ([facility])- Primary Unspecified essential hypertension Insomnia Insomnia, unspecified Type 2 diabetes mellitus with complication, with long-term current use of insulin ([facility]) Non-seasonal allergic rhinitis, unspecified trigger Type 2 diabetes mellitus with unspecified complications Anxiety and depression ([facility]) Gastro-esophageal reflux disease without esophagitis Edema, unspecified Edema Diabetic polyneuropathy associated with type 2 diabetes mellitus ([facility]) Chronic obstructive pulmonary disease, unspecified Pulmonary emphysema, unspecified emphysema type ([facility]) Bilateral lower extremity edema Tobacco user Tobacco use disorder Hyperpigmentation of skin Other dyschromia Primary hypertension ([facility])- Primary Unspecified essential hypertension Diabetic polyneuropathy associated with type 2 diabetes mellitus ([facility]) Pulmonary emphysema, unspecified emphysema type ([facility]) Critical limb ischemia of right lower extremity ([facility]) PAD (peripheral artery disease) ([facility]) Unspecified peripheral vascular disease Gastroesophageal reflux disease, unspecified whether esophagitis present Bilateral lower extremity edema Venous ulcer of right leg ([facility]) Type 2 diabetes mellitus with complication, with long-term current use of insulin ([facility]) Tobacco user Tobacco use disorder Encounter for smoking cessation counseling Kidney stone Calculus of kidney Adrenal mass 1 cm to 4 cm in diameter ([facility]) Radiculopathy, lumbar region Thoracic or lumbosacral neuritis or radiculitis, unspecified Non-seasonal allergic rhinitis, unspecified trigger Type 2 diabetes mellitus with unspecified complications Anxiety and depression ([facility])- Primary Morbid (severe) obesity due to excess calories ([facility]) Body mass index (BMI) 50.0-59.9, adult ([facility]) Malignant neoplasm of cervix uteri, unspecified Diabetic polyneuropathy associated with type 2 diabetes mellitus ([facility] Chronic diastolic heart failure ([facility] Chronic diastolic heart failure Primary hypertension ([facility]) Unspecified essential hypertension 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 Gastroesophageal reflux disease, unspecified whether esophagitis present Bilateral lower extremity edema Type 2 diabetes mellitus with complication, with long-term current use of insulin ([facility]) Tobacco user Tobacco use disorder Mixed hyperlipidemia ([facility]) Mixed hyperlipidemia Gout, unspecified cause, unspecified chronicity, unspecified site Vitamin deficiency Unspecified vitamin deficiency Gastro-esophageal reflux disease without esophagitis Edema, unspecified Edema Hyperlipidemia, unspecified ([facility]) Encounter for smoking cessation counseling Venous ulcer of right leg ([facility] Antibiotic-induced yeast infection Type 2 diabetes mellitus with hyperglycemia, with long-term current use of insulin ([facility] Primary Encounter for dietary consultation Vitamin D deficiency Primary hypertension ([facility]) Unspecified essential hypertension Insulin long-term use ([facility]) Encounter for long-term (current) use of insulin Hyperlipemia, mixed ([facility]) Mixed hyperlipidemia Microalbuminuria Proteinuria Class 3 severe obesity due to excess calories with serious comorbidity and body mass index (BMI) of 50.0 to 59.9 in adult documented in this encounter [facility] HealthcareEvaluation note* Diagnosis Obstructive sleep apnea- Primary Obstructive sleep apnea (adult) (pediatric) Pulmonary emphysema, unspecified emphysema type ([facility]) Primary hypertension ([facility]) Unspecified essential hypertension Type 2 diabetes mellitus with complication, with long-term current use of insulin ([facility] Anxiety and depression ([facility]) Bilateral lower extremity edema Pulmonary emphysema, unspecified emphysema type ([facility])- Primary Primary hypertension ([facility]) Unspecified essential hypertension Class 3 severe obesity with serious comorbidity and body mass index (BMI) of 50.0 to 59.9 in adult, unspecified obesity type Obstructive sleep apnea Obstructive sleep apnea (adult) (pediatric) Pulmonary hypertension ([facility]) Other chronic pulmonary heart diseases Tobacco user Tobacco use disorder Cardiomegaly Primary hypertension ([facility])- Primary Unspecified essential hypertension Gastroesophageal reflux disease, unspecified whether esophagitis present Type 2 diabetes mellitus with complication, with long-term current use of insulin ([facility]) Mixed hyperlipidemia ([facility]) Mixed hyperlipidemia Tobacco user Tobacco use disorder Encounter for screening mammogram for malignant neoplasm of breast Chronic obstructive pulmonary disease, unspecified Other specified chronic obstructive pulmonary disease Anxiety and depression (CMS/HCC) Edema, unspecified Edema Hyperlipidemia, unspecified (CMS/HCC) Diabetic polyneuropathy associated with type 2 diabetes mellitus ([facility]) Gout, unspecified cause, unspecified chronicity, unspecified site [...] unspecified complications Pulmonary emphysema, unspecified emphysema type ([facility]) Moderate persistent asthma without complication ([facility]) Primary hypertension ([facility]) Unspecified essential hypertension Type 2 diabetes mellitus with complication, with long-term current use of insulin ([facility]) Class 3 severe obesity with serious comorbidity and body mass index (BMI) of 50.0 to 59.9 in adult, unspecified obesity type Tobacco user Tobacco use disorder Other headache syndrome Malignant neoplasm of cervix uteri, unspecified Other specified disorders of adrenal gland Major depressive disorder, single episode, mild (HCC) ([facility]) Major depressive disorder, single episode, mild Non-pressure [...] complication, with long-term current use of insulin ([facility]) Non-seasonal allergic rhinitis, unspecified trigger Type 2 diabetes mellitus with unspecified complications Anxiety and depression ([facility]) Gastro-esophageal reflux disease without esophagitis Edema, unspecified Edema Diabetic polyneuropathy associated with type 2 diabetes mellitus (CMS/HCC) Chronic obstructive pulmonary disease, unspecified Pulmonary emphysema, unspecified emphysema type ([facility]) Bilateral lower extremity edema Tobacco user Tobacco use disorder Hyperpigmentation of skin Other dyschromia Primary hypertension ([facility])- Primary Unspecified essential hypertension Diabetic polyneuropathy associated with type 2 diabetes mellitus ([facility]) Pulmonary emphysema, unspecified emphysema type ([facility]) Critical limb ischemia of right lower extremity ([facility]) PAD (peripheral artery disease) ([facility] Unspecified peripheral vascular disease Gastroesophageal reflux disease, unspecified whether esophagitis present Bilateral lower extremity edema Venous ulcer of right leg ([facility]) Type 2 diabetes mellitus with complication, with long-term current use of insulin ([facility]) Tobacco user Tobacco use disorder Encounter for smoking cessation counseling Kidney stone Calculus of kidney Adrenal mass 1 cm to 4 cm in diameter ([facility]) Radiculopathy, lumbar region Thoracic or lumbosacral neuritis or radiculitis, unspecified Non-seasonal allergic rhinitis, unspecified trigger Type 2 diabetes mellitus with unspecified complications Anxiety and depression ([facility] Primary Morbid (severe) obesity due to excess calories ([facility]) Body mass index (BMI) 50.0-59.9, adult ([facility]) Malignant neoplasm of cervix uteri, unspecified Diabetic polyneuropathy associated with type 2 diabetes mellitus ([facility]) Chronic diastolic heart failure ([facility]) Chronic diastolic heart failure Primary hypertension ([facility]) Unspecified essential hypertension 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 Gastroesophageal reflux disease, unspecified whether esophagitis present Bilateral lower extremity edema Type 2 diabetes mellitus with complication, with long-term current use of insulin ([facility]) Tobacco user Tobacco use disorder Mixed hyperlipidemia ([facility]) Mixed hyperlipidemia Gout, unspecified cause, unspecified chronicity, unspecified site Vitamin deficiency Unspecified vitamin deficiency Gastro-esophageal reflux disease without esophagitis Edema, unspecified Edema Hyperlipidemia, unspecified ([facility] [place]) Encounter for smoking cessation counseling Venous ulcer of right leg ([facility]) Antibiotic-induced yeast infection Chronic obstructive pulmonary disease, unspecified documented in this encounter [facility] HealthcareEvaluation note* Diagnosis Obstructive sleep apnea- Primary Obstructive sleep apnea (adult) (pediatric) Pulmonary emphysema, unspecified emphysema type ([facility]) Primary hypertension ([facility]) Unspecified essential hypertension Type 2 diabetes mellitus with complication, with long-term current use of insulin ([facility]) Anxiety and depression ([facility]) Bilateral lower extremity edema Pulmonary emphysema, unspecified emphysema type (CMS/HCC)- Primary Primary hypertension ([facility]) Unspecified essential hypertension Class 3 severe obesity with serious comorbidity and body mass index (BMI) of 50.0 to 59.9 in adult, unspecified obesity type Obstructive sleep apnea Obstructive sleep apnea (adult) (pediatric) Pulmonary hypertension ([facility]) Other chronic pulmonary heart diseases Tobacco user Tobacco use disorder Cardiomegaly Primary hypertension ([facility])- Primary Unspecified essential hypertension Gastroesophageal reflux disease, unspecified whether esophagitis present Type 2 diabetes mellitus with complication, with long-term current use of insulin ([facility]) Mixed hyperlipidemia ([facility]) Mixed hyperlipidemia Tobacco user Tobacco use disorder Encounter for screening mammogram for malignant neoplasm of breast Chronic obstructive pulmonary disease, unspecified Other specified chronic obstructive pulmonary disease Anxiety and depression ([facility]) Edema, unspecified Edema Hyperlipidemia, unspecified ([facility]) Diabetic polyneuropathy associated with type 2 diabetes mellitus ([facility]) Gout, unspecified cause, unspecified chronicity, unspecified site Non-seasonal allergic rhinitis, unspecified trigger Bilateral lower extremity edema COPD exacerbation ([facility]) Obstructive chronic bronchitis with exacerbation Pulmonary emphysema, unspecified emphysema type ([facility]) Venous insufficiency Unspecified venous (peripheral) insufficiency Candidiasis of breast COPD exacerbation ([facility])- Primary Obstructive chronic bronchitis with exacerbation Pulmonary hypertension ([facility]) Other chronic pulmonary heart diseases Class 3 severe obesity with serious comorbidity and body mass index (BMI) of 50.0 to 59.9 in adult, unspecified obesity type Encounter for subsequent annual wellness visit (AWV) in Medicare patient- Primary Type 2 diabetes mellitus with unspecified complications Pulmonary emphysema, unspecified emphysema type ([facility]) Moderate persistent asthma without complication ([facility]) Primary hypertension ([facility]) Unspecified essential hypertension Type 2 diabetes mellitus with complication, with long-term current use of insulin ([facility]) Class 3 severe obesity with serious comorbidity and body mass index (BMI) of 50.0 to 59.9 in adult, unspecified obesity type Tobacco user Tobacco use disorder Other headache syndrome Malignant neoplasm of cervix uteri, unspecified Other specified disorders of adrenal gland Major depressive disorder, single episode, mild (HCC) ([facility]) Major depressive disorder, single episode, mild 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 exposed Chronic respiratory failure, unspecified whether with hypoxia or hypercapnia Disorder of adrenal gland, unspecified Non-pressure chronic ulcer of other part of right lower leg limited to breakdown of skin ([facility]) Non-recurrent acute suppurative otitis media of left ear without spontaneous rupture of tympanic membrane Primary hypertension ([facility])- Primary Unspecified essential hypertension Insomnia Insomnia, unspecified Type 2 diabetes mellitus with complication, with long-term current use of insulin ([facility]) Non-seasonal allergic rhinitis, unspecified trigger Type 2 diabetes mellitus with unspecified complications Anxiety and depression ([facility]) Gastro-esophageal reflux disease without esophagitis Edema, unspecified Edema Diabetic polyneuropathy associated with type 2 diabetes mellitus ([facility]) Chronic obstructive pulmonary disease, unspecified Pulmonary emphysema, unspecified emphysema type ([facility]) Bilateral lower extremity edema Tobacco user Tobacco use disorder Hyperpigmentation of skin Other dyschromia Primary hypertension ([facility])- Primary Unspecified essential hypertension Diabetic polyneuropathy associated with type 2 diabetes mellitus ([facility]) Pulmonary emphysema, unspecified emphysema type ([facility] [facility] Critical limb ischemia of right lower extremity ([facility]) PAD (peripheral artery disease) ([facility]) Unspecified peripheral vascular disease Gastroesophageal reflux disease, unspecified whether esophagitis present Bilateral lower extremity edema Venous ulcer of right leg ([facility]) Type 2 diabetes mellitus with complication, with long-term current use of insulin ([facility]) Tobacco user Tobacco use disorder Encounter for smoking cessation counseling Kidney stone Calculus of kidney Adrenal mass 1 cm to 4 cm in diameter ([facility]) Radiculopathy, lumbar region Thoracic or lumbosacral neuritis or radiculitis, unspecified Non-seasonal allergic rhinitis, unspecified trigger Type 2 diabetes mellitus with unspecified complications Anxiety and depression ([facility])- Primary Morbid (severe) obesity due to excess calories ([facility]) Body mass index (BMI) 50.0-59.9, adult ([facility]) Malignant neoplasm of cervix uteri, unspecified Diabetic polyneuropathy associated with type 2 diabetes mellitus ([facility]) Chronic diastolic heart failure ([facility] Chronic diastolic heart failure Primary hypertension ([facility]) Unspecified essential hypertension 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 Gastroesophageal reflux disease, unspecified whether esophagitis present Bilateral lower extremity edema Type 2 diabetes mellitus with complication, with long-term current use of insulin ([facility]) Tobacco user Tobacco use disorder Mixed hyperlipidemia ([facility]) Mixed hyperlipidemia Gout, unspecified cause, unspecified chronicity, unspecified site Vitamin deficiency Unspecified vitamin deficiency Gastro-esophageal reflux disease without esophagitis Edema, unspecified Edema Hyperlipidemia, unspecified ([facility]) Encounter for smoking cessation counseling Venous ulcer of right leg ([facility]) Antibiotic-induced yeast infection Primary hypertension ([facility])- Primary Unspecified essential hypertension Diabetic polyneuropathy associated with type 2 diabetes mellitus ([facility]) Chronic diastolic heart failure ([facility]) Chronic diastolic heart failure Bilateral lower extremity edema Morbid (severe) obesity due to excess calories ([facility]) Type 2 diabetes mellitus with complication, with long-term current use of insulin ([facility]) Anxiety and depression ([facility] Cigarette nicotine dependence without complication Encounter for screening mammogram for malignant neoplasm of breast Insomnia Insomnia, unspecified Non-seasonal allergic rhinitis, unspecified trigger Type 2 diabetes mellitus with unspecified complications Vitamin D deficiency, unspecified Gastro-esophageal reflux disease without esophagitis PAD (peripheral artery disease) ([facility]) Unspecified peripheral vascular disease Gastroesophageal reflux disease, unspecified whether esophagitis present Venous ulcer of right leg ([facility]) documented in this encounter [facility] HealthcareEvaluation note* Diagnosis Obstructive sleep apnea- Primary Obstructive sleep apnea (adult) (pediatric) Pulmonary emphysema, unspecified emphysema type (HCC) Primary hypertension Unspecified essential hypertension Type 2 diabetes mellitus with complication, with long-term current use of insulin ([facility]) Anxiety and depression Bilateral lower extremity edema Pulmonary emphysema, unspecified emphysema type (HCC)- Primary Primary hypertension Unspecified essential hypertension Class 3 severe obesity with serious comorbidity and body mass index (BMI) of 50.0 to 59.9 in adult, unspecified obesity type ([facility]) Obstructive sleep apnea Obstructive sleep apnea (adult) (pediatric) Pulmonary hypertension (HCC) Other chronic pulmonary heart diseases Tobacco user Tobacco use disorder Cardiomegaly Primary hypertension- Primary Unspecified essential hypertension Gastroesophageal reflux disease, unspecified whether esophagitis present Type 2 diabetes mellitus with complication, with long-term current use of insulin ([facility]) Mixed hyperlipidemia Mixed hyperlipidemia Tobacco user Tobacco [...] to 59.9 in adult, unspecified obesity type ([facility]) Encounter for subsequent annual wellness visit (AWV) in Medicare patient- Primary Type 2 diabetes mellitus with unspecified complications ([facility]) Pulmonary emphysema, unspecified emphysema type ([facility]) Moderate persistent asthma without complication (HCC) Primary hypertension Unspecified essential hypertension Type 2 diabetes mellitus with complication, with long-term current use of insulin ([facility]) Class 3 severe obesity with serious comorbidity and body mass index (BMI) of 50.0 to 59.9 in adult, unspecified obesity type ([facility]) Tobacco user Tobacco use disorder Other headache syndrome Malignant neoplasm of cervix uteri, unspecified (HCC) Other specified disorders of adrenal gland ([facility]) Major depressive disorder, single episode, mild Major depressive disorder, single episode, mild 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 exposed ([facility]) Chronic respiratory failure, unspecified whether with hypoxia or hypercapnia ([facility]) Disorder of adrenal gland, unspecified ([facility]) Non-pressure chronic ulcer of other part of right lower leg limited to breakdown of skin ([facility]) Non-recurrent acute suppurative otitis media of left [...] Critical limb ischemia of right lower extremity ([facility]) PAD (peripheral artery disease) Unspecified peripheral vascular disease Gastroesophageal reflux disease, unspecified whether esophagitis present Bilateral lower extremity edema Venous ulcer of right leg (HCC) Type 2 diabetes mellitus with complication, with long-term current use of insulin (HCC) Tobacco user Tobacco use disorder Encounter for smoking cessation counseling Kidney stone Calculus of kidney Adrenal mass 1 cm to 4 cm in diameter ([facility]) Radiculopathy, lumbar region Thoracic or lumbosacral neuritis or radiculitis, unspecified Non-seasonal allergic rhinitis, unspecified trigger Type 2 diabetes mellitus with unspecified complications ([facility]) Anxiety and depression- Primary Morbid (severe) obesity due to excess calories ([facility]) Body mass index (BMI) 50.0-59.9, adult ([facility]) Malignant neoplasm of cervix uteri, unspecified ([facility]) Diabetic polyneuropathy associated with type 2 diabetes mellitus ([facility]) Chronic diastolic heart failure (HCC) Chronic diastolic heart failure Primary hypertension Unspecified essential hypertension 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 ([facility]) Gastroesophageal reflux disease, unspecified whether esophagitis present Bilateral lower extremity edema Type 2 diabetes mellitus with complication, with long-term current use of insulin ([facility]) Tobacco user Tobacco use disorder Mixed hyperlipidemia Mixed hyperlipidemia Gout, unspecified cause, unspecified chronicity, unspecified site Vitamin deficiency Unspecified vitamin deficiency Gastro-esophageal reflux disease without esophagitis Edema, unspecified Edema Hyperlipidemia, unspecified Encounter for smoking cessation counseling Venous ulcer of right leg ([facility]) Antibiotic-induced yeast infection Primary hypertension- Primary Unspecified essential hypertension Diabetic polyneuropathy associated with type 2 diabetes mellitus (HCC) Chronic diastolic heart failure (HCC) Chronic diastolic heart failure Bilateral lower extremity edema Morbid (severe) obesity due to excess calories ([facility]) Type 2 diabetes mellitus with complication, with long-term current use of insulin ([facility]) Anxiety and depression Cigarette nicotine dependence without complication Encounter for screening mammogram for malignant neoplasm of breast Insomnia Insomnia, unspecified Non-seasonal allergic rhinitis, unspecified trigger Type 2 diabetes mellitus with unspecified complications ([facility]) Vitamin D deficiency, unspecified Gastro-esophageal reflux disease [...] Morbid (severe) obesity due to excess calories ([facility]) Type 2 diabetes mellitus with complication, with long-term current use of insulin ([facility]) Anxiety and depression Fever, unspecified fever cause Hyperlipidemia, unspecified Tobacco user Tobacco use disorder Encounter for smoking cessation counseling documented in this encounter [facility] HealthcareEvaluation note* Diagnosis Obstructive sleep apnea- Primary Obstructive sleep apnea (adult) (pediatric) Pulmonary emphysema, unspecified emphysema type ([facility]) Primary hypertension ([facility]) Unspecified essential hypertension Type 2 diabetes mellitus with complication, with long-term current use of insulin ([facility]) Anxiety and depression ([facility]) Bilateral lower extremity edema Pulmonary emphysema, unspecified emphysema type ([facility])- Primary Primary hypertension ([facility]) Unspecified essential hypertension Class 3 severe obesity with serious comorbidity and body mass index (BMI) of 50.0 to 59.9 in adult, unspecified obesity type Obstructive sleep apnea Obstructive sleep apnea (adult) (pediatric) Pulmonary hypertension ([facility]) Other chronic pulmonary heart diseases Tobacco user Tobacco use disorder Cardiomegaly Primary hypertension ([facility])- Primary Unspecified essential hypertension Gastroesophageal reflux disease, unspecified whether esophagitis present Type 2 diabetes mellitus with complication, with long-term current use of insulin ([facility]) Mixed hyperlipidemia ([facility]) Mixed hyperlipidemia Tobacco user Tobacco use disorder Encounter for screening mammogram for malignant neoplasm of breast Chronic obstructive pulmonary disease, unspecified Other specified chronic obstructive pulmonary disease Anxiety and depression ([facility]) Edema, unspecified Edema Hyperlipidemia, unspecified ([facility]) Diabetic polyneuropathy associated with type 2 diabetes mellitus ([facility]) Gout, unspecified cause, unspecified chronicity, unspecified site Non-seasonal allergic rhinitis, unspecified trigger Bilateral lower extremity edema COPD exacerbation ([facility]) Obstructive chronic bronchitis with exacerbation Pulmonary emphysema, unspecified emphysema type ([facility]) Venous insufficiency Unspecified venous (peripheral) insufficiency Candidiasis of breast COPD exacerbation ([facility])- Primary Obstructive chronic bronchitis with exacerbation Pulmonary hypertension ([facility]) Other chronic pulmonary heart diseases Class 3 severe obesity with serious comorbidity and body mass index (BMI) of 50.0 to 59.9 in adult, unspecified obesity type Encounter for subsequent annual wellness visit (AWV) in Medicare patient- Primary Type 2 diabetes mellitus with unspecified complications Pulmonary emphysema, unspecified emphysema type ([facility]) Moderate persistent asthma without complication ([facility]) Primary hypertension ([facility]) Unspecified essential hypertension Type 2 diabetes mellitus with complication, with long-term current use of insulin ([facility]) Class 3 severe obesity with serious comorbidity and body mass index (BMI) of 50.0 to 59.9 in adult, unspecified obesity type Tobacco user Tobacco use disorder Other headache syndrome Malignant neoplasm of cervix uteri, unspecified Other specified disorders of adrenal gland Major depressive disorder, single episode, mild (HCC) ([facility]) Major depressive disorder, single episode, mild 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 exposed Chronic respiratory failure, unspecified whether with hypoxia or hypercapnia Disorder of adrenal gland, unspecified Non-pressure chronic ulcer of other part of right lower leg limited to breakdown of skin ([facility]) Non-recurrent acute suppurative otitis media of left ear without spontaneous rupture of tympanic membrane Primary hypertension ([facility])- Primary Unspecified essential hypertension Insomnia Insomnia, unspecified Type 2 diabetes mellitus with complication, with long-term current use of insulin ([facility]) Non-seasonal allergic rhinitis, unspecified trigger Type 2 diabetes mellitus with unspecified complications Anxiety and depression ([facility]) Gastro-esophageal reflux disease without esophagitis Edema, unspecified Edema Diabetic polyneuropathy associated with type 2 diabetes mellitus ([facility]) Chronic obstructive pulmonary disease, unspecified Pulmonary emphysema, unspecified emphysema type ([facility]) Bilateral lower extremity edema Tobacco user Tobacco use disorder Hyperpigmentation of skin Other dyschromia Primary hypertension ([facility])- Primary Unspecified essential hypertension Diabetic polyneuropathy associated with type 2 diabetes mellitus ([facility]) Pulmonary emphysema, unspecified emphysema type ([facility]) Critical limb ischemia of right lower extremity ([facility]) PAD (peripheral artery disease) ([facility]) Unspecified peripheral vascular disease Gastroesophageal reflux disease, unspecified whether esophagitis present Bilateral lower extremity edema Venous ulcer of right leg ([facility]) Type 2 diabetes mellitus with complication, with long-term current use of insulin ([facility]) Tobacco user Tobacco use disorder Encounter for smoking cessation counseling Kidney stone Calculus of kidney Adrenal mass 1 cm to 4 cm in diameter ([facility]) Radiculopathy, lumbar region Thoracic or lumbosacral neuritis or radiculitis, unspecified Non-seasonal allergic rhinitis, unspecified trigger Type 2 diabetes mellitus with unspecified complications Anxiety and depression ([facility])- Primary Morbid (severe) obesity due to excess calories ([facility]) Body mass index (BMI) 50.0-59.9, adult ([facility]) Malignant neoplasm of cervix uteri, unspecified Diabetic polyneuropathy associated with type 2 diabetes mellitus ([facility] Chronic diastolic heart failure ([facility] Chronic diastolic heart failure Primary hypertension ([facility]) Unspecified essential hypertension 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 Gastroesophageal reflux disease, unspecified whether esophagitis present Bilateral lower extremity edema Type 2 diabetes mellitus with complication, with long-term current use of insulin ([facility]) Tobacco user Tobacco use disorder Mixed hyperlipidemia ([facility]) Mixed hyperlipidemia Gout, unspecified cause, unspecified chronicity, unspecified site Vitamin deficiency Unspecified vitamin deficiency Gastro-esophageal reflux disease without esophagitis Edema, unspecified Edema Hyperlipidemia, unspecified ([facility]) Encounter for smoking cessation counseling Venous ulcer of right leg ([facility]) Antibiotic-induced yeast infection Primary hypertension ([facility])- Primary Unspecified essential hypertension Diabetic polyneuropathy associated with type 2 diabetes mellitus ([facility] Chronic diastolic heart failure ([facility]) Chronic diastolic heart failure Bilateral lower extremity edema Morbid (severe) obesity due to excess calories ([facility]) Type 2 diabetes mellitus with complication, with long-term current use of insulin ([facility]) Anxiety and depression ([facility]) Cigarette nicotine dependence without complication Encounter for screening mammogram for malignant neoplasm of breast Insomnia Insomnia, unspecified Non-seasonal allergic rhinitis, unspecified trigger Type 2 diabetes mellitus with unspecified complications Vitamin D deficiency, unspecified Gastro-esophageal reflux disease without esophagitis PAD (peripheral artery disease) ([facility]) Unspecified peripheral vascular disease Gastroesophageal reflux disease, unspecified whether esophagitis present Venous ulcer of right leg ([facility]) Cellulitis of left lower extremity- Primary COPD exacerbation ([facility]) Obstructive chronic bronchitis with exacerbation Primary hypertension ([facility] Unspecified essential hypertension Pulmonary hypertension ([facility]) Other chronic pulmonary heart diseases Morbid (severe) obesity due to excess calories ([facility]) Type 2 diabetes mellitus with complication, with long-term current use of insulin ([facility]) Anxiety and depression ([facility] Fever, unspecified fever cause documented in this encounter [facility] HealthcareEvaluation note* Diagnosis Obstructive sleep apnea- Primary [...] to 59.9 in adult, unspecified obesity type ([facility]) Obstructive sleep apnea Obstructive sleep apnea (adult) [...] to 59.9 in adult, unspecified obesity type ([facility]) Encounter for subsequent annual wellness visit (AWV) [...] to 59.9 in adult, unspecified obesity type ([facility]) Tobacco user Tobacco use disorder Other headache syndrome Malignant neoplasm of cervix uteri, unspecified (HCC) Other specified disorders of adrenal gland (HCC) Major depressive disorder, single episode, mild Major depressive disorder, single episode, mild 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 exposed ([facility]) Chronic respiratory failure, unspecified whether with hypoxia or hypercapnia ([facility]) Disorder of adrenal gland, unspecified ([facility]) Non-pressure chronic ulcer of other part of right lower leg limited to breakdown of skin ([facility]) Non-recurrent acute suppurative otitis media of left ear without spontaneous rupture of tympanic membrane Primary hypertension- Primary Unspecified essential hypertension Insomnia Insomnia, unspecified Type 2 diabetes mellitus with complication, with long-term current use of insulin ([facility]) Non-seasonal allergic rhinitis, unspecified trigger Type 2 diabetes mellitus with unspecified complications ([facility]) Anxiety and depression Gastro-esophageal reflux disease without esophagitis Edema, unspecified Edema Diabetic polyneuropathy associated with type 2 diabetes mellitus ([facility]) Chronic obstructive pulmonary disease, unspecified ([facility]) Pulmonary emphysema, unspecified emphysema type ([facility]) Bilateral lower extremity edema Tobacco user Tobacco use disorder Hyperpigmentation of skin Other dyschromia Primary hypertension- Primary Unspecified essential hypertension Diabetic polyneuropathy associated with type 2 diabetes mellitus ([facility]) Pulmonary emphysema, unspecified emphysema type ([facility]) Critical limb ischemia of right lower extremity ([facility] PAD (peripheral artery disease) Unspecified peripheral vascular disease Gastroesophageal reflux disease, unspecified whether esophagitis present Bilateral lower extremity edema Venous ulcer of right leg ([facility]) Type 2 diabetes mellitus with complication, with long-term current use of insulin ([facility]) Tobacco user Tobacco use disorder Encounter for smoking cessation counseling Kidney stone Calculus of kidney Adrenal mass 1 cm to 4 cm in diameter ([facility]) Radiculopathy, lumbar region Thoracic or lumbosacral neuritis or radiculitis, unspecified Non-seasonal allergic rhinitis, unspecified trigger Type 2 diabetes mellitus with unspecified complications ([facility]) Anxiety and depression- Primary Morbid (severe) obesity due to excess calories ([facility] Body mass index (BMI) 50.0-59.9, adult ([facility]) Malignant neoplasm of cervix uteri, unspecified ([facility]) Diabetic polyneuropathy associated with type 2 diabetes mellitus ([facility]) Chronic diastolic heart failure ([facility]) Chronic diastolic heart failure Primary hypertension Unspecified essential hypertension 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 ([facility]) Gastroesophageal reflux disease, unspecified whether esophagitis present [...] Morbid (severe) obesity due to excess calories ([facility]) Type 2 diabetes mellitus with complication, with [...] Morbid (severe) obesity due to excess calories ([facility]) Type 2 diabetes mellitus with complication, with long-term current use of insulin ([facility]) Anxiety and depression Fever, unspecified fever cause Encounter for subsequent annual wellness visit (AWV) in Medicare patient- Primary Mixed hyperlipidemia Mixed hyperlipidemia Type 2 diabetes mellitus with complication, with long-term current use of insulin ([facility]) Bilateral lower extremity edema Gastro-esophageal reflux disease [...] Morbid (severe) obesity due to excess calories ([facility]) Type 2 diabetes mellitus with hyperglycemia, with long-term current use of insulin ([facility]) documented in this encounter [facility]* [...] to 59.9 in adult, unspecified obesity type ([facility]) Obstructive sleep apnea Obstructive sleep apnea (adult) [...] to 59.9 in adult, unspecified obesity type ([facility]) Encounter for subsequent annual wellness visit (AWV) [...] to 59.9 in adult, unspecified obesity type ([facility]) Tobacco user Tobacco use disorder Other headache syndrome Malignant neoplasm of cervix uteri, unspecified (HCC) Other specified disorders of adrenal gland (HCC) Major depressive disorder, single episode, mild Major depressive disorder, single episode, mild 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 exposed ([facility]) Chronic respiratory failure, unspecified whether with hypoxia or hypercapnia ([facility]) Disorder of adrenal gland, unspecified ([facility]) Non-pressure chronic ulcer of other part of right lower leg limited to breakdown of skin ([facility]) Non-recurrent acute suppurative otitis media of left ear without spontaneous rupture of tympanic membrane Primary hypertension- Primary Unspecified essential hypertension Insomnia Insomnia, unspecified Type 2 diabetes mellitus with complication, with long-term current use of insulin ([facility]) Non-seasonal allergic rhinitis, unspecified trigger Type 2 diabetes mellitus with unspecified complications ([facility]) Anxiety and depression Gastro-esophageal reflux disease without esophagitis Edema, unspecified Edema Diabetic polyneuropathy associated with type 2 diabetes mellitus ([facility]) Chronic obstructive pulmonary disease, unspecified ([facility]) Pulmonary emphysema, unspecified emphysema type ([facility]) Bilateral lower extremity edema Tobacco user Tobacco use disorder Hyperpigmentation of skin Other dyschromia Primary hypertension- Primary Unspecified essential hypertension Diabetic polyneuropathy associated with type 2 diabetes mellitus ([facility]) Pulmonary emphysema, unspecified emphysema type ([facility]) Critical limb ischemia of right lower extremity ([facility]) PAD (peripheral artery disease) Unspecified peripheral vascular disease Gastroesophageal reflux disease, unspecified whether esophagitis present Bilateral lower extremity edema Venous ulcer of right leg ([facility]) Type 2 diabetes mellitus with complication, with long-term current use of insulin ([facility]) Tobacco user Tobacco use disorder Encounter for smoking cessation counseling Kidney stone Calculus of kidney Adrenal mass 1 cm to 4 cm in diameter ([facility]) Radiculopathy, lumbar region Thoracic or lumbosacral neuritis or radiculitis, unspecified Non-seasonal allergic rhinitis, unspecified trigger Type 2 diabetes mellitus with unspecified complications ([facility]) Anxiety and depression- Primary Morbid (severe) obesity due to excess calories ([facility]) Body mass index (BMI) 50.0-59.9, adult ([facility]) Malignant neoplasm of cervix uteri, unspecified ([facility]) Diabetic polyneuropathy associated with type 2 diabetes mellitus ([facility]) Chronic diastolic heart failure ([facility]) Chronic diastolic heart failure Primary hypertension Unspecified essential hypertension 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 ([facility]) Gastroesophageal reflux disease, unspecified whether esophagitis present Bilateral lower extremity edema Type 2 diabetes mellitus with complication, with long-term current use of insulin ([facility]) Tobacco user Tobacco use disorder Mixed hyperlipidemia Mixed hyperlipidemia Gout, unspecified cause, unspecified chronicity, unspecified site Vitamin deficiency Unspecified vitamin deficiency Gastro-esophageal reflux disease without esophagitis Edema, unspecified Edema Hyperlipidemia, unspecified Encounter for smoking cessation counseling Venous ulcer of right leg (HCC) Antibiotic-induced yeast infection Primary hypertension- Primary Unspecified essential hypertension Diabetic polyneuropathy associated with type 2 diabetes mellitus ([facility]) Chronic diastolic heart failure (HCC) Chronic diastolic heart failure Bilateral lower extremity edema Morbid (severe) obesity due to excess calories ([facility]) Type 2 diabetes mellitus with complication, with long-term current use of insulin ([facility]) Anxiety and depression Cigarette nicotine dependence without complication Encounter for screening mammogram for malignant neoplasm of breast Insomnia Insomnia, unspecified Non-seasonal allergic rhinitis, unspecified trigger Type 2 diabetes mellitus with unspecified complications ([facility]) Vitamin D deficiency, unspecified Gastro-esophageal reflux disease without esophagitis PAD (peripheral artery disease) Unspecified peripheral vascular disease Gastroesophageal reflux disease, unspecified whether esophagitis present Venous ulcer of right leg ([facility]) Cellulitis of left lower extremity- Primary COPD exacerbation ([facility]) Obstructive chronic bronchitis with exacerbation Primary hypertension Unspecified essential hypertension Pulmonary hypertension ([facility]) Other chronic pulmonary heart diseases Morbid (severe) obesity due to excess calories ([facility]) Type 2 diabetes mellitus with complication, with long-term current use of insulin ([facility]) Anxiety and depression Fever, unspecified fever cause Encounter for subsequent annual wellness visit (AWV) in Medicare patient- Primary Mixed hyperlipidemia Mixed hyperlipidemia Type 2 diabetes mellitus with complication, with long-term current use of insulin ([facility]) Bilateral lower extremity edema Gastro-esophageal reflux disease without esophagitis Chronic diastolic heart failure (HCC) Chronic diastolic heart failure Primary hypertension Unspecified essential hypertension Pulmonary hypertension (HCC) Other chronic pulmonary heart diseases Diabetic polyneuropathy associated with type 2 diabetes mellitus ([facility]) Pulmonary emphysema, unspecified emphysema type ([facility]) Moderate persistent asthma without complication ([facility]) Insomnia Insomnia, unspecified Non-seasonal allergic rhinitis, unspecified trigger Type 2 diabetes mellitus with unspecified complications ([facility]) Anxiety and depression Antibiotic-induced yeast infection Chronic obstructive pulmonary disease, unspecified ([facility]) Hyperlipidemia, unspecified Vaginal yeast infection Candidiasis of vulva and vagina Morbid (severe) obesity due to excess calories ([facility]) Encounter for dietary consultation- Primary Type 2 diabetes mellitus with hyperglycemia, with long-term current use of insulin (HCC) Vitamin D deficiency Primary hypertension Unspecified essential hypertension Insulin long-term use (HCC) Encounter for long-term (current) use of insulin Hyperlipemia, mixed Mixed hyperlipidemia Microalbuminuria Proteinuria Class 3 severe obesity due to excess calories with serious comorbidity and body mass index (BMI) of 50.0 to 59.9 in adult ([facility]) documented in this encounter [facility] HealthcareEvaluation note* Diagnosis Obstructive sleep apnea- [...] to 59.9 in adult, unspecified obesity type ([facility]) Obstructive sleep apnea Obstructive sleep apnea (adult) [...] to 59.9 in adult, unspecified obesity type ([facility]) Encounter for subsequent annual wellness visit (AWV) [...] to 59.9 in adult, unspecified obesity type ([facility]) Tobacco user Tobacco use disorder Other headache syndrome Malignant neoplasm of cervix uteri, unspecified (HCC) Other specified disorders of adrenal gland ([facility]) Major depressive disorder, single episode, mild Major depressive disorder, single episode, mild 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 exposed ([facility]) Chronic respiratory failure, unspecified whether with hypoxia or hypercapnia ([facility]) Disorder of adrenal gland, unspecified (HCC) Non-pressure chronic ulcer of other part of right lower leg limited to breakdown of skin ([facility]) Non-recurrent acute suppurative otitis media of left ear without spontaneous rupture of tympanic membrane Primary hypertension- Primary Unspecified essential hypertension Insomnia Insomnia, unspecified Type 2 diabetes mellitus with complication, with long-term current use of insulin ([facility]) Non-seasonal allergic rhinitis, unspecified trigger Type 2 diabetes mellitus with unspecified complications ([facility]) Anxiety and depression Gastro-esophageal reflux disease without esophagitis Edema, unspecified Edema Diabetic polyneuropathy associated with type 2 diabetes mellitus ([facility]) Chronic obstructive pulmonary disease, unspecified ([facility]) Pulmonary emphysema, unspecified emphysema type ([facility]) Bilateral lower extremity edema Tobacco user Tobacco use disorder Hyperpigmentation of skin Other dyschromia Primary hypertension- Primary Unspecified essential hypertension Diabetic polyneuropathy associated with type 2 diabetes mellitus ([facility]) Pulmonary emphysema, unspecified emphysema type ([facility]) Critical limb ischemia of right lower extremity ([facility]) PAD (peripheral artery disease) Unspecified peripheral vascular disease Gastroesophageal reflux disease, unspecified whether esophagitis present Bilateral lower extremity edema Venous ulcer of right leg ([facility]) Type 2 diabetes mellitus with complication, with long-term current use of insulin ([facility]) Tobacco user Tobacco use disorder Encounter for smoking cessation counseling Kidney stone Calculus of kidney Adrenal mass 1 cm to 4 cm in diameter ([facility]) Radiculopathy, lumbar region Thoracic or lumbosacral neuritis or radiculitis, unspecified Non-seasonal allergic rhinitis, unspecified trigger Type 2 diabetes mellitus with unspecified complications ([facility]) Anxiety and depression- Primary Morbid (severe) obesity due to excess calories ([facility]) Body mass index (BMI) 50.0-59.9, adult ([facility]) Malignant neoplasm of cervix uteri, unspecified (HCC) [...] Morbid (severe) obesity due to excess calories ([facility]) Type 2 diabetes mellitus with complication, with [...] Morbid (severe) obesity due to excess calories ([facility]) Type 2 diabetes mellitus with complication, with [...] Morbid (severe) obesity due to excess calories ([facility]) Tobacco user Tobacco use disorder Encounter for smoking cessation counseling documented in this encounter [facility] general [...] History sepsis 2010 Hospitalization History SEE [facility] Other Hospital course Narrative No data available for this section [facility] [employer] progress note No data available for this section [facility] [employer] reason for referral (narrative) , Referral to Dr. Cortés Referred by: Elbert ARAUZ MD [facility] Advance Directives Documents on File Type Date Recorded Patient Teaching Assistant Expl anation Advance Directives and Living Will Power of Property And Supply Officer Summary Purpose Family History No Family History Records FoundNo Family History Records FoundNo Family History Records FoundNo Family History Records Found No data available for this section No Family History Records FoundNo Family History Records FoundNo Family History Records Found Additional Source Comments INFORMATION SOURCE (unrecogn ized section and content) DATE CREATED AUTHOR 10/30/2019 [facility] DATE CREATED AUTHOR AUTHOR'S ORGANIZ ATION 09/15/2020 [facility] DATE CREATED AUTHOR AUTHOR'S ORGANIZ ATION 12/19/2022 [facility] DATE CREATED AUTHOR AUTHOR'S ORGANIZ ATION 06/03/2024 [facility] DATE CREATED AUTHOR AUTHOR'S ORGANIZ ATION 01/30/2025 [facility] DATE CREATED AUTHOR AUTHOR'S ORGANIZ ATION 02/06/2025 [facility] DATE CREATED AUTHOR AUTHOR'S ORGANIZ ATION 02/28/2025 [facility] Care Team (unrecognized sect ion and content) [employer] Consultant Relationship Specialty Start Date End Date Ty Amin MD PCP - General Family Medicine 01/05/23 [employer] Consultant Relationship Specialty Start Date End Date Ty Amin MD PCP - General Family Medicine 01/05/23 [employer] Consultant Relationship Specialty Start Date End Date Ty Amin MD [address] [place] [phone] PCP - General Family Medicine 09/20/23 Mckayla Blas NP [address] [place] [phone] PCP - [facility] 09/07/23 09/05/90 Mckayla Blas NP [address] [place] [address] Nurse Practitioner Family Medicine 09/20/23 [employer] Consultant Relationship Specialty Start Date End Date Ty Amin MD [address] [place] [phone] PCP - General Family Medicine 09/20/23 Mckayla Blas NP [address] [place] [address] PCP - [facility] 09/07/23 09/05/90 Mckayla Blas NP [address] [place] [address] Nurse Practitioner Family Medicine 09/20/23 [employer] Consultant Relationship Specialty Start Date End Date Ty Amin MD [address] [place] [address] PCP - General Family Medicine 09/20/23 Mckayla Blas NP [address] [place] [address] PCP - [facility] 09/07/23 09/05/90 Mckayla Blas NP [address] [place] [address] Nurse Practitioner Family Medicine 09/20/23 [employer] Consultant Relationship Specialty Start Date End Date Ty Amin MD [address] [place] [address] PCP - General Family Medicine 09/20/23 Mckayla Blas NP [address] [place] [address] PCP - [facility] 09/07/23 09/05/90 Mckayla Blas NP [address] [place] [address] Nurse Practitioner Family Medicine 09/20/23 [employer] Consultant Relationship Specialty Start Date End Date Ty Amin MD [address] [place] [address] PCP - General Family Medicine 09/20/23 Mckayla Blas NP [address] [place] [address] PCP - [facility] 09/07/23 09/05/90 Mckayla Blas NP [address] [place] [address] Nurse Practitioner Family Medicine 09/20/23 [employer] Consultant Relationship Specialty Start Date End Date Ty Amin MD [address] [place] [address] PCP - General Family Medicine 09/20/23 Mckayla Blas NP [address] [place] [address] PCP - [facility] 09/07/23 09/05/90 Mckayla Blas NP [address] [place] [address] Nurse Practitioner Family Medicine 09/20/23 [employer] Consultant Relationship Specialty Start Date End Date Ty Amin MD [address] [place] [address] PCP - General Family Medicine 09/20/23 Mckayla Blas NP [address] [place] [address] PCP - [facility] 09/07/23 09/05/90 Mckayla Blas NP [address] [place] [address] Nurse Practitioner Family Medicine 09/20/23 [employer] Consultant Relationship Specialty Start Date End Date Ty Amin MD [address] [place] [address] PCP - General Family Medicine 09/20/23 Mckayla Blas NP [address] [place] [address] PCP - [facility] 09/07/23 09/05/90 Mckayla Blas NP [address] [place] [address] Nurse Practitioner Family Medicine 09/20/23 [employer] Consultant Relationship Specialty Start Date End Date Ty Amin MD [address] [place] [address] PCP - General Family Medicine 09/20/23 Mckayla Blas NP [address] [place] [address] PCP - [facility] 09/07/23 09/05/90 Mckayla Blas NP [address] [place] [address] Nurse Practitioner Family Medicine 09/20/23 [employer] Consultant Relationship Specialty Start Date End Date Ty Amin MD [address] [place] [address] PCP - General Family Medicine 09/20/23 Mckayla Blas NP [address] [place] [address] PCP - [facility] 09/07/23 09/05/90 Mckayla Blas NP [address] [place] [address] Nurse Practitioner Family Medicine 09/20/23 [employer] Consultant Relationship Specialty Start Date End Date Ty Amin MD [address] [place] [address] PCP - General Family Medicine 09/20/23 Mckayla Blas NP [address] [place] [address] PCP - [facility] 09/07/23 09/05/90 Mckayla lBas NP [address] [place] [address] Nurse Practitioner Family Medicine 09/20/23 [employer] Consultant Relationship Specialty Start Date End Date Ty Amin MD [address] [place] [address] PCP - General Family Medicine 09/20/23 Mckayla Blas NP [address] [place] [address] PCP - [facility] 09/07/23 09/05/90 Mckayla Blas NP [address] [place] [address] Nurse Practitioner Family Medicine 09/20/23 [employer] Consultant Relationship Specialty Start Date End Date Ty Amin MD [address] [place] [address] PCP - General Family Medicine 09/20/23 Mckayla Blas NP [address] [place] [address] PCP - [facility] 09/07/23 09/05/90 Mckayla Blas NP [address] [place] [address] Nurse Practitioner Family Medicine 09/20/23 [employer] Consultant Relationship Specialty Start Date End Date Ty Amin MD [address] [place] [address] PCP - General Family Medicine 09/20/23 Mckayla Blas NP [address] [place] [address] PCP - [facility] 09/07/23 09/05/90 Mckayla Blas NP [address] [place] [address] Nurse Practitioner Family Medicine 09/20/23 [employer] Consultant Relationship Specialty Start Date End Date Ty Amin MD [address] [place] [address] PCP - General Family Medicine 09/20/23 Mckayla Blas NP [address] [place] [address] PCP - [facility] 09/07/23 09/05/90 Mckayla Blas NP [address] [place] [address] Nurse Practitioner Family Medicine 09/20/23 [employer] Consultant Relationship Specialty Start Date End Date Ty Amin MD [address] [place] [address] PCP - General Family Medicine 09/20/23 Mckayla Blas NP [address] [place] [address] PCP - [facility] 09/07/23 09/05/90 Mckayla Blas NP [address] [place] [address] Nurse Practitioner Family Medicine 09/20/23 [employer] Consultant Relationship Specialty Start Date End Date Ty Amin MD [address] [place] [address] PCP - General Family Medicine 09/20/23 Mckayla Blas NP [address] [place] [address] PCP - [facility] 09/07/23 09/05/90 Mckayla Blas NP [address] [place] [address] Nurse Practitioner Family Medicine 09/20/23 [employer] Consultant Relationship Specialty Start Date End Date Ty Amin MD [address] [place] [address] PCP - General Family Medicine 09/20/23 Mckayla Blas NP [address] [place] [address] PCP - [facility] 09/07/23 09/05/90 Mckayla Blas NP [address] [place] [address] Nurse Practitioner Family Medicine 09/20/23 [employer] Consultant Relationship Specialty Start Date End Date Ty Amin MD [address] [place] [address] PCP - General Family Medicine 09/20/23 Mckayla Blas NP [address] [place] [address] PCP - [facility] 09/07/23 09/05/90 Mckayla Blas NP [address] [place] [address] Nurse Practitioner Family Medicine 09/20/23 [employer] Consultant Relationship Specialty Start Date End Date Ty Amin MD [address] [place] [address] PCP - General Family Medicine 09/20/23 Mckayla Blas NP [address] [place] [address] [place] [address] PCP - [facility] 09/07/23 09/05/90 Mckayla Blas NP [address] [place] [address] Nurse Practitioner Family Medicine 09/20/23 [employer] Business [employer] Consultant Relationship Specialty Start Date End Date Ty Amin MD [address] [place] [address] PCP - General [facility] Medicine 09/20/23 Mckayla Blas NP [address] [place] [address] Nurse Practitioner Family Medicine 09/20/23 [employer] Consultant Relationship Specialty Start Date End Date Ty Amin MD [address] [place] [address] PCP - General Family Medicine 09/20/23 Mckayla Blas NP [address] [place] [address] Nurse Practitioner Family Medicine 09/20/23 [employer] Consultant Relationship Specialty Start Date End Date Ty Amin MD [address] [place] [address] PCP - General Family Medicine 09/20/23 Mckayla Blas NP [address] [place] [address] Nurse Practitioner Family Medicine 09/20/23 [employer] Consultant Relationship Specialty Start Date End Date Ty Amin MD [address] [place] [address] PCP - General Family Medicine 09/20/23 Mckayla Blas NP [address] [place] [address] Nurse Practitioner Family Medicine 09/20/23 [employer] Consultant Relationship Specialty Start Date End Date Ty Amin MD [address] [place] [address] PCP - General Family Medicine 09/20/23 Mckayla Blas NP [address] [place] [address] Nurse Practitioner Family Medicine 09/20/23 REASON FOR [...] BE BASED ON THE PRIMARY CLINICAL RECORDS. [employer] provides no warranty or guarantee of the accuracy or completeness of information in this document.
== END 2025-03-06 09:01 | disposition home or self-care (01) ==
LOC: WC 03-10 15:44
PROVIDERS: PCP Nurse Practitioner; Visit Provider Physician Assistant
DX: I87.311 Chronic venous hypertension (idiopathic) with ulcer of right lower extremity (principal); L97.812 Non-pressure chronic ulcer of other part of right lower leg with fat layer exposed

== ENCOUNTER 2025-03-10 10:07 | Outpatient (OUT) | payer MEDICARE, SELFPAY ==
--- OUTSIDE RECORDS SUMMARY | 2025-03-10 10:09 | XMS_ITS | Encounter Summary ---
Author Organization [facility] Address [address] [place] [address] Care Team Providers Care Church Worker Name Role Phone Ty Amin MD Primary Care Provider [phone] Mckayla Blas PERCUSSION INSTRUCTOR Unavailable [phone] Mckayla Blas PERCUSSION INSTRUCTOR Unavailable [phone] Encounter Details Date Type Department Care Team (Late st Contact Info) Description 01/07/2025 Abstract [facility] [address] [place] [address] Mckayla Blas PERCUSSION INSTRUCTOR [address] [place] [address] Social History Tobacco Use Types Packs/Day Years [...] often do you attend chur ch or confucianism services? More than 4 times per year [...] Recorded Patient Health Questionnaire-2 Score 1 01/17/2024 [facility] [...] Visit [facility] [address] [place] [address] Mckayla Blas NP [address] [place] [address] 05/28/2025 10:30 AM EST Office Visit [facility] [address] [place] [address] Rain Souza MD [address] [place] [address] 02/01/2026 6:00 PM EDT Office Visit [facility] [address] [place] [address] Mckayla Blas, SILVANO [address] [place] [address] documented as of this encounter Visit Diagnoses Not on filedocumented in this encounter Additional Health Concerns Assessment Noted Time PHQ-9 Depression Total Score: 3 01/17/20 10:08 AM EDT documented as of this encounter Care Teams Church Worker Relationship Specialty Start Date End Date Ty Amin MD [address] [place] [address] PCP - General Family Medicine 09/20/23 Mckayla Blas NP [address] [place] [address] PCP - [facility] 09/07/23 01/11/25 Mckayla Blas NP [address] [place] [address] Nurse Practitioner Family Medicine 09/20/23 documented as of this encounter
--- OUTSIDE RECORDS SUMMARY | 2025-03-10 10:09 | XMS_ITS | Encounter Summary ---
Author Organization [facility] Address [address] [place] [address] Care Team Providers Care Journeyman Plumber Name Role Phone Ty Amin MD Primary Care Provider [phone] Mckayla Blas STAVE CUTTER Unavailable [phone] Mckayla Blas STAVE CUTTER Unavailable [phone] Encounter Details Date Type Department Care Team (Late st Contact Info) Description 07/14/2024 Orders Only [facility] [address] [place] [address] Mckayla Blas STAVE CUTTER [address] [place] [address] Social History Tobacco Use Types Packs/Day Years [...] often do you attend chur ch or nondenominational services? 1 to 4 times per year [...] Office Visit [facility] [address] [place] [address] Mckayla Blas, STAVE CUTTER [address] [place] [address] 05/28/2025 10:30 AM EST Office Visit [facility] [address] [place] [address] Rain Souza MD [address] [place] [address] 02/01/2026 6:00 PM EDT Office Visit [facility] [address] [place] [address] Mckayla Blas NP [address] [place] [address] documented as of this encounter Procedures Procedure [...] documented as of this encounter Care Teams Journeyman Plumber Relationship Specialty Start Date End Date Ty Amin MD [address] [place] [address] PCP - General Family Medicine 09/20/23 Mckayla Blas NP [address] [place] [address] PCP - [facility] 09/07/23 01/11/25 Mckayla Blas NP [address] [place] [address] Nurse Practitioner Family Medicine 09/20/23 documented as of this encounter
--- OUTSIDE RECORDS SUMMARY | 2025-03-10 10:09 | XMS_ITS | Encounter Summary ---
Author Organization [facility] Address [address] [place] [address] Care Team Providers Care Senior Clinical Data Analyst Name Role Phone Ty Amin MD Primary Care Provider [phone] Ty Amin MD Primary Care Provider [phone] Mckayla Blas BIZTALK ARCHITECT Unavailable [phone] Mckayla Blas BIZTALK ARCHITECT Unavailable [phone] Encounter Details Date Type Department Care Team (Late st Contact Info) Description 09/12/2023 Orders Only [facility] [address] [place] [address] Social History Tobacco Use Types Packs/Day Years [...] How often do you attend chur or religion services? 1 to 4 times [...] Recorded Patient Health Questionnaire-2 Score 2 07/10/2023 [facility] - Occupational [...] 04/29/2025 6:00 PM EDT Office Visit [facility] [address] [place] [address] Mckayla Blas, BIZTALK ARCHITECT [address] [place] [address] 05/28/2025 10:30 AM EST Office Visit [facility] [address] [place] [address] Rain Souza MD [address] [place] [address] 02/01/2026 6:00 PM EDT Office Visit [facility] [address] [place] [address] Mckayla Blas, BIZTALK ARCHITECT [address] [place] [address] documented as of this encounter Procedures Procedure Name Priority Date/Time Associated Diagnosis Comments XR CHEST 1 VIEW Routine 09/11/2023 4:52 PM EST documented in this encounter Results * XR chest 1 view (09/11/2023 4:52 PM EST) Anatomical Region Laterality Modality Chest Radiographic Kalani ging [facility] IMG XR PROCEDURES Final Result documented in this encounter Visit Diagnoses Not on filedocumented in this encounter Care Teams Senior Clinical Data Analyst Relationship Specialty Start Date End Date Ty Amin MD PCP - General Family Medicine 01/05/23 09/19/23 Ty Amin MD [address] [place] [address] PCP - General Family Medicine 09/20/23 Mckayla Blas NP [address] [place] [address] PCP - [facility] 09/07/23 01/11/25 Mckayla Blas NP [address] [place] [address] Nurse Practitioner Family Medicine 09/20/23 documented as of this encounter
--- OUTSIDE RECORDS SUMMARY | 2025-03-10 10:09 | XMS_ITS | Encounter Summary ---
Author Organization [facility] Address [address] [place] [address] Care Team Providers Care Gamb Cutter Name Role Phone Ty Amin MD Primary Care Provider [phone] Mckayla Blas NP Unavailable [phone] Mckayla Blas NP Unavailable [phone] Encounter Details Date Type Department Care [...] often do you attend chur ch or hoahaoism services? 1 to 4 times [...] Office Visit [facility] [address] [place] [address] Mckayla Blas, SPRAY FOAM INSTALLER [address] [place] [address] 05/28/2025 10:30 AM EST Office Visit [facility] [address] [place] [address] Rain Souza MD [address] [place] [address] 02/01/2026 6:00 PM EDT Office Visit [facility] [address] [place] [address] Mckayla Blas, SPRAY FOAM INSTALLER [address] [place] [address] documented as of this encounter Procedures Procedure Name Priority Date/Time Associated Diagnosis Comments SEGMENTAL BLOOD PRESSURE 04/24/2024 11:20 AM EDT documented in this encounter Results * SEGMENTAL BLOOD PRESSURE (04/24/2024 11:20 AM EDT) Anatomical Region Laterality Modality Radiographic Kalani ging 04/24/2024 11:2 0 AM EDT Narrative 04/24/2024 11:23 [place] [address] Vein Report Signed Patient: SINA MACIAS MR#: [id number] : 1970 Acct:[id number] Age/Sex: 53 / F ADM Date: 04/24/24 Loc: VC Attending Dr: Rafael Gongora Ordering Physician: Rafael Gongora Date of Service: 04/24/24 Procedure(s): VC SEGMENTAL PRESSURES Accession Number(s): [id number] cc: Mckayla Blas SPRAY FOAM INSTALLER; Rafael Gongora [place] [address] Patient Name: SINA MACIAS MRN: [id number] date: 1970 Sex: F Assigned Patient Location: Current Patient Location: Accession/Order Number: [id number] Exam Date: 04/24/2024 10:25 Report Date: 04/24/2024 11:20 At the request of: RAFAEL GONGORA Procedure: VC SEGMENTAL PRESSURES EXAM: VC SEGMENTAL PRESSURES HISTORY: R09.89 COMPARISON: None. FINDINGS: Segmental pressures presented as follows (right, left) in mmHg. Brachial: 169, 166 Upper thigh: Not obtained Lower thigh: 129, 119 Calf: 124, 106 DPA: 108, 105 PASSENGER BARGE MASTER: 100, 91 1st Toe: 124, 142 ISABELLE: [...] Signed By: 04/24/24 1123 DD/ 1120 TD/TT: Adult Protective Caseworker: Procedure Note Radiology, Radiologist, MD - 04/24/2024 [place] [address] Vein Report Signed Patient: SINA MACIAS LMR#: [id number] : 1970Acct:[id number] Age/Sex: 53 / FADM Date: 04/24/24 Loc: VC Attending Dr: Rafael Gongora Ordering Physician: Rafael Gongora Date of Service: 04/24/24 Procedure(s): VC SEGMENTAL PRESSURES Accession Number(s): [id number] cc: Mckayla Blas NP; Rafael Gongora [place] [address] Patient Name: SINA MACIAS MRN: [id number] date: 1970 Sex: F Assigned Patient Location: Current Patient Location: VC Accession/Order Number: [id number] Exam Date: 04/24/2024 10:25 Report Date: 04/24/2024 11:20 At the request of: RAFAEL GONGORA Procedure: VC SEGMENTAL PRESSURES EXAM: VC SEGMENTAL PRESSURES HISTORY: R09.89 COMPARISON: None. FINDINGS: Segmental pressures presented as follows (right, left) in mmHg. Brachial: 169, 166 Upper thigh: Not obtained Lower thigh: 129, 119 Calf: 124, 106 DPA: 108, 105 PASSENGER BARGE MASTER: 100, 91 1st Toe: 124, 142 ISABELLE: [...] M.D. Signed By:04/24/24 1123 DD/ 1120 TD/TT: Adult Protective Caseworker: us Generic External Data Provider IMG XR PROCEDURES Final Result documented in this encounter Visit Diagnoses Not on filedocumented in this encounter Additional Health Concerns Assessment Noted Time PHQ-9 Depression Total Score: 3 01/17/20 24 10:08 AM EDT documented as of this encounter Care Teams Gamb Cutter Relationship Specialty Start Date End Date Ty Amin MD [address] [place] [address] PCP - General Family Medicine 09/20/23 Mckayla Blas NP [address] [place] [address] PCP - [facility] 09/07/23 01/11/25 Mckayla Blas NP [address] [place] [address] Nurse Practitioner Family Medicine 09/20/23 documented as of this encounter
--- OUTSIDE RECORDS SUMMARY | 2025-03-10 10:09 | XMS_ITS | Encounter Summary ---
Author Organization [facility] Address [address] [place] [address] Care Team Providers Care Cashier Assistant Name Role Phone Ty Amin MD Primary Care Provider [phone] Ty Amin MD Primary Care Provider [phone] Mckayla Blas FINAL CLEANER Unavailable [phone] Mckayla Blas FINAL CLEANER Unavailable [phone] Encounter Details Date Type Department Care Team (Late st Contact Info) Description 08/31/2023 Clinisync Result Encounter [facility] External Department Unsolicited Andra Alcala PA [address] [place] [address] Dr [address] [place], [place] [address] Social History Tobacco Use Types Packs/Day Years [...] Recorded Patient Health Questionnaire-2 Score 2 07/10/2023 [facility] - Occupational Stress Questionnaire [...] Office Visit [facility] [address] [place] [address] Mckayla Blas NP [address] [place] [address] 05/28/2025 10:30 AM EST Office Visit [facility] [address] [place] [address] Rain Souza MD [address] [place] [address] 02/01/2026 6:00 PM EDT Office Visit [facility] [address] [place] [address] Mckayla Blas, FINAL CLEANER [address] [place] [address] documented as of this encounter Procedures Procedure [...] LAB BLOOD ORDERAB LES Final Result [facility] * BLOOD CULTURE 1 (09/10/2023 2:05 PM EST) BLOOD CULTURE 1 Blood Culture 1 NG5D NO GROWTH AT 5 DAYS.^NO GROWTH AT 5 DAYS. TB 09/10/2023 2:05 PM EST 09/10/2023 2:28 PM EST Narrative [facility] - 09/16/2023 1:07 PM EDT Generic External Data Provider LAB BLOOD ORDERAB LES Final [facility] * ECG 12-LEAD (08/31/2023 6:08 PM EST) Anatomical Region Laterality Modality Other 08/31/2023 6:08 PM EST Narrative 09/02/2023 7:32 AM EST [place] [id number] Electrocardiograph Report Signed Patient: MITZI MACIAS MR#: [id number] : 1970 Acct:[id number] Age/Sex: 53 / F ADM Date: 08/31/23 Loc: [place] 214-[address]: Jacqueline Becerra D.O. Ordering Physician: Andra Alcala Date of Service: 08/31/23 Procedure(s): ECG 12 lead Accession Number(s): [id number] cc: [facility] Test Date: 2023-08-31 Pat Name: MITZI MACIAS Department: Room: - Gender: Female Vest Front Presser: : 1970 Requested By: MCKAYLA BLAS Order Number: [id number] Reading MD: LAURI DIOR Measurements Intervals [place] Rate: 102 P: 67 SD: 144 QRS: 52 QRSD: 72 T: 49 QT: 326 QTc: 385 Interpretive Statements 1120 Sinus tachycardia 4068 Nonspecific Twave abnormality 8102 Low QRS voltage in chest leads 9140 abnormal rhythm ECG Compared to ECG 12/04/2022 21:27:48 Electronically Signed On 09-02-2023 7:31:43 EST by LAURI DIOR Dictated By: Lauri Dior D.O. Signed By: 09/02/23 0732 DD/ 1808 TD/TT: Environmental Monitoring Specialist: Procedure Note Radiology, Radiologist, - 09/02/2023 [facility] [place] [id number] Electrocardiograph Report Signed Patient: MITZI MACIAS R#: [id number] : 1970Acct:[id number] Age/Sex: 53 / FADM Date: 08/31/23 Loc: [place] 214-[address]: Jacqueline Becerra D.O. Ordering Physician: Andra Alcala Date of Service: 08/31/23 Procedure(s): ECG 12 lead Accession Number(s): [id number] cc: [facility] Test Date: 2023-08-31 Pat Name: MITZI MACIAS Department: Room: - Gender: Female Vest Front Presser: : 1970 Requested By: MCKAYLA BLAS Order Number: [id number] Reading MD: LAURI DIOR Measurements Intervals [place] Rate: 102 P: 67 SD: 144 QRS: 52 QRSD: 72 T: 49 QT: 326 QTc: 385 Interpretive Statements 1120 Sinus tachycardia 4068 Nonspecific Twave abnormality 8102 Low QRS voltage in chest leads 9140 abnormal rhythm ECG Compared to ECG 12/04/2022 21:27:48 Electronically Signed On 09-02-2023 7:31:43 EST by LAURI DIOR Dictated By: Lauri Dior D.O. Signed By:09/02/23 0732 DD/ 1808 TD/TT: Environmental Monitoring Specialist: Andra [facility]ERS [facility] Final Result documented in this encounter Visit Diagnoses Not on filedocumented in this encounter Care Teams Cashier Assistant Relationship Specialty Start Date End Date Ty Amin MD PCP - General Family Medicine 01/05/23 09/19/23 Ty Amin MD [address] [place] [address] PCP - General Family Medicine 09/20/23 Mckayla Blas NP [address] [place] [address] PCP - [facility] 09/07/23 01/11/25 Mckayla Blas NP [address] [place] [address] Nurse Practitioner Family Medicine 09/20/23 documented as of this encounter
--- OUTSIDE RECORDS SUMMARY | 2025-03-10 10:09 | XMS_ITS | Encounter Summary ---
Author Organization [facility] Address [address] [place] [address] Care Team Providers Care Postdoctoral Research Associate Name Role Phone Ty Amin MD Primary Care Provider [phone] Mckayla Blas SAFETY COUNCIL DIRECTOR Unavailable [phone] Encounter Details Date Type Department Care Team ([facility] st Contact Info) Description 02/18/2025 Abstract [facility] [address] [place] [address] Mckayla Blas, SAFETY COUNCIL DIRECTOR [address] [place] [address] Social History Tobacco Use Types Packs/Day Years [...] week 08/26/2024 How often do you attend [facility] or yazidism services? More than 4 times per year [...] Recorded Patient Health Questionnaire-2 Score 0 01/26/2025 [facility] Occupat [...] Visit [facility] [address] [place] [address] Mckayla Blas NP [address] [place] [address] 05/28/2025 10:30 AM EST Office Visit [facility] [address] [place] [address] Rain Souza MD [address] [place] [address] 02/01/2026 6:00 PM EDT Office Visit [facility] [address] [place] [address] Mckayla Blas, SILVANO [address] [place] [address] documented as of this encounter Visit Diagnoses Not on filedocumented in this encounter Additional Health Concerns Assessment Noted Time PHQ-9 Depression Total Score: 3 01/17/20 24 10:08 AM EDT documented as of this encounter Care Teams Postdoctoral Research Associate Relationship Specialty Start Date End Date Ty Amin MD [address] [place] [address] PCP - General Family Medicine 09/20/23 Mckayla Blas, SILVANO [address] [place] [address] Nurse Practitioner Family Medicine 09/20/23 documented as of this encounter
--- OUTSIDE RECORDS SUMMARY | 2025-03-10 10:09 | XMS_ITS | Clinical Summary ---
Author Organization [employer] tem Address [id number] [address] [place] [address] Care Team Providers Care Varnish Cooker Name Role Phone Wan Mckayla Krystal PEREZN-BASE FILLER Primary Care Provider Allergies No known active [...] Medical Devices Not on file Insurance [place]ICAID [place] [employer] MEDICARE Care Teams Varnish Cooker Relationship Specialty Start Date End Date Mckayla Blas APRN-BASE FILLER [address] [place] [address] PCP - General Nurse Practitioner 09/25/18
--- OUTSIDE RECORDS SUMMARY | 2025-03-10 10:09 | XMS_ITS | Encounter Summary ---
Author Organization [facility] Address [address] [place] [address] Care Team Providers Care Prosthodontist Name Role Phone Ty Amin MD Primary Care Provider [phone] Mckayla Blas NP Unavailable [phone] Mckayla Blas NP Unavailable [phone] Encounter Details Date Type Department Care [...] Recorded Patient Health Questionnaire-2 Score 1 01/17/2024 [facility] - [...] EDT Office Visit [facility] [address] [place] [address] Mckayla Blas, SPIRAL SPRING WINDER [address] [place] [address] 05/28/2025 10:30 AM EST Office Visit [facility] [address] [place] [address] Rain Souza MD [address] [place] [address] 02/01/2026 6:00 PM EDT Office Visit [facility] [address] [place] [address] Mckayla Blas, SPIRAL SPRING WINDER [address] [place] [place] [address] documented as of this encounter Procedures Procedure Name Priority Date/Time Associated Diagnosis Comments MR LUMBAR SPINE WO CON 05/12/2024 2:41 PM EST documented in this encounter Results * MR LUMBAR SPINE WO CON (05/12/2024 2:41 PM EST) Anatomical Region Laterality Modality Other 05/12/2024 2:41 PM EST Narrative 05/12/2024 2:43 [place] [address] Magnetic Resonance Report Signed Patient: MITZI MACIAS MR#: [id number] : 1970 Acct:[id number] Age/Sex: 53 / F ADM Date: 05/12/24 Loc: MRI Attending Dr: Celestina Chin NP Ordering Physician: Celestina Chin NP Date of Service: 05/12/24 Procedure(s): MR lumbar spine wo con Accession Number(s): [id number] cc: Mckayla Blas SPIRAL SPRING WINDER; Celestina Chin NP [place] [id number] Patient Name: MITZI MACIAS MRN: [id number] date: 1970 Sex: F Assigned Patient Location: MRI Current Patient Location: CT Accession/Order Number: [id number] Exam Date: 05/12/2024 09:21 Report Date: 05/12/2024 [...] Signed By: 05/12/24 1443 DD/ 1441 TD/TT: Squad Leader: Procedure Note Radiology, Radiologist, MD - 05/12/2024 [place] [address] Magnetic Resonance Report Signed Patient: MITZI MACIAS R#: [id number] : 1970Acct:[id number] Age/Sex: 53 / FADM Date: 05/12/24 Loc: MRI Attending Dr: Celestina Chin NP Ordering Physician: Celestina Chin NP Date of Service: 05/12/24 Procedure(s): MR lumbar spine wo con Accession Number(s): [id number] cc: Mckayla Blas NP; Celestina Chin NP The [address] [address] Patient Name: MITZI MACIAS MRN: [employer]:[id number] date: 1970 Sex: F Assigned Patient Location: MRI Current Patient Location: CT Accession/Order Number: [id number] Exam Date: 05/12/2024 09:21 Report Date: 05/12/2024 [...] M.D. Signed By:05/12/24 1443 DD/ 1441 TD/TT: Squad Leader: us Generic External Data Provider [facility] Final Result documented in this encounter Visit Diagnoses Not on filedocumented in this encounter Additional Health Concerns Assessment Noted Time PHQ-9 Depression Total Score: 3 01/17/20 24 10:08 AM EDT documented as of this encounter Care Teams Prosthodontist Relationship Specialty Start Date End Date Ty Amin MD [address] [place] [address] PCP - General Family Medicine 09/20/23 Mckayla Blas NP [address] [place] [address] PCP - [facility] 09/07/23 01/11/25 Mckayla Blas NP [address] [place] [address] Nurse Practitioner Family Medicine 09/20/23 documented as of this encounter
--- OUTSIDE RECORDS SUMMARY | 2025-03-10 10:09 | XMS_ITS | Encounter Summary ---
Author Organization [facility] Address [address] [place] [address] Care Team Providers Care Radiology Administrator Name Role Phone Ty Amin MD Primary Care Provider [phone] Mckayla Blas NP Unavailable [phone] Mckayla Blas NP Unavailable [phone] Encounter Details Date Type Department Care [...] Recorded Patient Health Questionnaire-2 Score 1 01/17/2024 [facility]at ional [facility] - [...] [facility] [address] [place] [address] Mckayla Blas, MACHINE STONE POLISHER [address] [place] [address] 05/28/2025 10:30 AM EST Office Visit [facility] [address] [place] [address] Rain Souza MD [address] [place] [address] 02/01/2026 6:00 PM EDT Office Visit [facility] [address] [place] [address] Mckayla Blas, MACHINE STONE POLISHER [address] [place] [address] documented as of this encounter Procedures Procedure Name Priority Date/Time Associated Diagnosis Comments CT ABDOMEN PELVIS W CON 05/12/2024 2:16 PM EST documented in this encounter Results * CT ABDOMEN PELVIS W CON (05/12/2024 2:16 PM EST) Anatomical Region Laterality Modality Other 05/12/2024 2:1 6 PM EST Narrative 05/12/2024 2:19 [place] [address] CT Scan Report Signed Patient: MITZI MACIAS MR#: [id number] : 1970 Acct:[id number] Age/Sex: 53 / F ADM Date: 05/12/24 Loc: CT Attending Dr: Gaviota MAYERS Ordering Physician: Gaviota Vega Date of Service: 05/12/24 Procedure(s): CT abdomen pelvis w con Accession Number(s): [id number] cc: Mckayla Blas NP [place] [address] Patient Name: MITZI MACIAS MRN: [facility]:[id number] date: 1970 Sex: F Assigned Patient Location: CT Current Patient Location: Accession/Order Number: [id number] Exam Date: 05/12/2024 11:15 Report Date: 05/12/2024 [...] Signed By: 05/12/24 1419 DD/ 1416 TD/TT: Poultry Hanger: Procedure Note Radiology, Radiologist, MD - 05/12/2024 [place] [address] CT Scan Report Signed Patient: MITZI MACIAS LMR#: [id number] : 1970Acct:[id number] Age/Sex: 53 / FADM Date: 05/12/24 Loc: CT Attending Dr: Gaviota MAYERS Ordering Physician: Gaviota Vega Date of Service: 05/12/24 Procedure(s): CT abdomen pelvis w con Accession Number(s): [id number] cc: Mckayla Blas NP The [address] [address] Patient Name: MITZI MACIAS MRN: [facility]:[id number] date: 1970 Sex: F Assigned Patient Location: CT Current Patient Location: Accession/Order Number: [id number] Exam Date: 05/12/2024 11:15 Report Date: 05/12/2024 14:16 At the request of: GAVIOTA E SILVIA Procedure: CT abdomen pelvis w con EXAM: [...] M.D. Signed By:05/12/24 1419 DD/ 1416 TD/TT: Poultry Hanger: us Generic External Data Provider [facility] Final Result documented in this encounter Visit Diagnoses Not on filedocumented in this encounter Additional Health Concerns Assessment Noted Time PHQ-9 Depression Total Score: 3 01/17/20 24 10:08 AM EDT documented as of this encounter Care Teams Radiology Administrator Relationship Specialty Start Date End Date Ty Amin MD [address] [place] [address] PCP - General Family Medicine 09/20/23 Mckayla Blas NP [address] [place] [address] PCP - [facility] 09/07/23 01/11/25 Mckayla Blas NP [address] [place] [address] Nurse Practitioner Family Medicine 09/20/23 documented as of this encounter
--- OUTSIDE RECORDS SUMMARY | 2025-03-10 10:09 | XMS_ITS | Encounter Summary ---
Author Organization [facility] Address [address] [place] [address] Care Team Providers Care Supervisor Hanging And Trimming Name Role Phone Ty Amin MD Primary Care Provider [phone] Mckayla Blas CROWN POUNCER Unavailable [phone] Mckayla Blas CROWN POUNCER Unavailable [phone] Encounter Details Date Type Department Care Team (Late st Contact Info) Description 04/14/2024 Orders Only [facility] [address] [place] [address] Mckayla Blas CROWN POUNCER [address] [place] [address] Social History Tobacco Use Types Packs/Day Years [...] often do you attend chur ch or christianity services? 1 to 4 times per year [...] Office Visit [facility] [address] [place] [address] Mckayla Blas, CROWN POUNCER [address] [place] [address] 05/28/2025 10:30 AM EST Office Visit [facility] [address] [place] [address] Rain Souza MD [address] [place] [address] 02/01/2026 6:00 PM EDT Office Visit [facility] [address] [place] [address] Mckayla Blas NP [address] [place] [address] documented as of this encounter Procedures Procedure Name Priority Date/Time Associated Diagnosis Comments XR ANKLE 3+ VIEWS RIGHT Routine 04/14/2024 2:57 PM EDT XR ANKLE 3+ VIEWS RIGHT Routine 04/14/2024 11:20 AM EDT documented in this encounter Results * XR ankle 3+ views right (04/14/2024 2:57 PM EDT) Anatomical Region Laterality Modality Lower Extremities, Ankle Right Radiogr aphic Imaging Mckayla Blas CROWN POUNCER IMG XR PROCEDURES Final Result * XR ankle 3+ views right (04/14/2024 11:20 AM EDT) Anatomical Region Laterality Modality Lower Extremities, Ankle Right Radiogr aphic Imaging Mckayla Blas CROWN POUNCER IMG XR PROCEDURES Final Result documented in this encounter Visit Diagnoses Not on filedocumented in this encounter Additional Health Concerns Assessment Noted Time PHQ-9 Depression Total Score: 3 01/17/20 10:08 AM EDT documented as of this encounter Care Teams Supervisor Hanging And Trimming Relationship Specialty Start Date End Date Ty Amin MD [address] [place] [address] PCP - General Family Medicine 09/20/23 Mckayla Blas NP [address] [place] [address] PCP - [facility] 09/07/23 01/11/25 Mckayla Blas NP [address] [place] [address] Nurse Practitioner Family Medicine 09/20/23 documented as of this encounter
--- OUTSIDE RECORDS SUMMARY | 2025-03-10 10:09 | XMS_ITS | Encounter Summary ---
Author Organization [facility] Address [id number] [address] [place] [address] Care Team Providers Care Lacquer Machine Feeder Name Role Phone JuanjoseMckayla carcamo Krystal SPOOL CARRIER-ACCESS SPECIALIST Primary Care Provider Encounter Details Date Type Department Care Team (Late st Contact Info) Description 06/11/2020 Orders Only [facility] [address] [place] [address] External, Scanning Provider Social History Tobacco Use [...] on filedocumented in this encounter Care Teams Lacquer Machine Feeder Relationship Specialty Start Date End Date Mckayla Blas, SPOOL CARRIER-ACCESS SPECIALIST [address] [place] [place] [address] PCP - General Nurse Practitioner 09/25/18 documented as of this encounter
--- OUTSIDE RECORDS SUMMARY | 2025-03-10 10:09 | XMS_ITS | Encounter Summary ---
Author Organization [facility] Address [address] [place] [address] Care Team Providers Care Fire Extinguisher Repairer Inspector Name Role Phone Ty Amin MD Primary Care Provider [phone] Mckayla Blas SAP HANA DEVELOPER Unavailable [phone] Mckayla Blas SAP HANA DEVELOPER Unavailable [phone] Encounter Details Date Type Department Care Team (Late st Contact Info) Description 01/07/2025 Abstract [facility] [address] [place] [address] Mckayla Blas SAP HANA DEVELOPER [address] [place] [address] Social History Tobacco Use Types Packs/Day Years [...] you attend chur ch or restoration services? More than 4 times per year [...] Recorded Patient Health Questionnaire-2 Score 1 01/17/2024 [facility] Occupat ional Health - Occupational Stress [...] Visit [facility] [address] [place] [address] Mckayla Blas NP [address] [place] [address] 05/28/2025 10:30 AM EST Office Visit [facility] [address] [place] [address] Rain Souza MD [address] [place] [address] 02/01/2026 6:00 PM EDT Office Visit [facility] [address] [place] [address] Mckayla Blas, SILVANO [address] [place] [address] documented as of this encounter Visit Diagnoses Not on filedocumented in this encounter Additional Health Concerns Assessment Noted Time PHQ-9 Depression Total Score: 3 01/17/20 10:08 AM EDT documented as of this encounter Care Teams Fire Extinguisher Repairer Inspector Relationship Specialty Start Date End Date Ty Amin MD [address] [place] [address] PCP - General Family Medicine 09/20/23 Mckayla Blas NP [address] [place] [address] PCP - [facility] 09/07/23 01/11/25 Mckayla Blas NP [address] [place] [address] Nurse Practitioner Family Medicine 09/20/23 documented as of this encounter
--- OUTSIDE RECORDS SUMMARY | 2025-03-10 10:09 | XMS_ITS | Encounter Summary ---
Author Organization [facility] Address [address] [place] [address] Care Team Providers Care Business Process Expert Name Role Phone Ty Amin MD Primary Care Provider [phone] Mckayla Blas NP Unavailable [phone] Mckayla Blas NP Unavailable [phone] Encounter Details Date Type Department Care Team (Late st Contact Info) Description 05/12/2024 Orders Only [facility] [address] [place] [place] [address] Angela Cochran NP [address] [place] [address] Social History Tobacco Use Types [...] 1 01/17/2024 [facility] - Occupational Stress Questionnaire Answer Date [...] Office Visit [facility] [address] [place] [address] Mckayla Blas NP [address] [place] [address] 05/28/2025 10:30 AM EST Office Visit [facility] [address] [place] [address] Rain Souza MD [address] [place] [address] 02/01/2026 6:00 PM EDT Office Visit [facility] [address] [place] [address] Mckayla Blas, FARMWORKER RICE [address] [place] [address] documented as of this encounter Procedures Procedure [...] documented as of this encounter Care Teams Business Process Expert Relationship Specialty Start Date End Date Ty Amin MD [address] [place] [address] PCP - General Family Medicine 09/20/23 Mckayla Bals NP [address] [place] [address] PCP - [facility] 09/07/23 01/11/25 Mckayla Blas NP [address] [place] [address] Nurse Practitioner Family Medicine 09/20/23 documented as of this encounter
--- OUTSIDE RECORDS SUMMARY | 2025-03-10 10:09 | XMS_ITS | Encounter Summary ---
Author Organization [facility] Address [id number] [address] [place] [address] Care Team Providers Care Systems Software Developer Name Role Phone JuanjoseMckayla carcamo Krystal CLINICAL LAW PROFESSOR-AIRCRAFT MECHANIC Primary Care Provider Encounter Details Date Type Department Care Team (Late st Contact Info) Description 05/31/2020 Orders Only [facility] [address] [place] [address] External, Scanning Provider Social History Tobacco Use [...] Final Result Performing Organization Address [facility] Co de Phone Number [...] Final Result Performing Organization Address [facility] Co de Phone Number MANUALLY TRANSCRIBED RESULTS * Pulmonary function test (10/24/2018) us Scanning Provider External PFT ORDERABLES Final Result Performing Organization Address [facility] Co de Phone Number MANUALLY TRANSCRIBED RESULTS * Nuc stress Lexiscan/Exercise (12/12/2016) Anatomical Region Laterality Modality Chest N/A Nuclear Medicine us Scanning Provider External CV STRESS ORDERABLES Final Result documented in this encounter Visit Diagnoses Not on filedocumented in this encounter Care Teams Systems Software Developer Relationship Specialty Start Date End Date Mckayla Blas, CLINICAL LAW PROFESSOR-AIRCRAFT MECHANIC [address] [place] [address] PCP - General Nurse Practitioner 09/25/18 documented as of this encounter
--- OUTSIDE RECORDS SUMMARY | 2025-03-10 10:09 | XMS_ITS | Encounter Summary ---
Author Organization [facility] Address [id number] [address] [place] [address] Care Team Providers Care Medicaid Billing Specialist Name Role Phone Mckayla Blas APRN-PARALEGALS Primary Care Provider Encounter Details Date Type Department Care Team (Late st Contact Info) Description 05/03/2020 Telephone [facility] [address] [place] [address] Tramaine Romero DO [address] [place] [address], [address] [id number] Social History Tobacco Use Types Packs/Day Years [...] on filedocumented in this encounter Care Teams Medicaid Billing Specialist Relationship Specialty Start Date End Date Mckayla Blas [place] [address] PCP - General Nurse Practitioner 09/25/18 documented as of this encounter
--- OUTSIDE RECORDS SUMMARY | 2025-03-10 10:10 | XMS_ITS | Encounter Summary ---
Author Organization [facility] Address [address] [place] [address] Care Team Providers Care Hand Bender Name Role Phone Mckayla Blas MD Primary Care Provider [phone] Encounter Details Date Type Department Care Team (Late st Contact Info) Description 02/04/2025 Results Follow-Up Cardiology [address] [facility] [place] [address] Karma Chatterjee CNP [address] [place] [address] Complete Echo (TTE) w/wo Imaging Agent, Strain, [...] on filedocumented in this encounter Care Teams Hand Bender Relationship Specialty Start Date End Date Mckayla Blas MD [address] [place] [address] PCP - General Nurse Practitioner 11/13/23 documented as of this encounter
--- OUTSIDE RECORDS SUMMARY | 2025-03-10 10:10 | XMS_ITS | Encounter Summary ---
Author Organization [facility] Address [address] [place] [address] Care Team Providers Care Toll Transmission Worker Name Role Phone Ty Amin MD Primary Care Provider [phone] Mckayla Blas NP Unavailable [phone] Reason for Visit * Reason Onset Date Comments Med Refill 02/27/2025 Encounter Details Date Type Department Care Team (Late st Contact Info) Description 02/27/2025 Refill [facility] [address] [place] [address] Amber Pinzon LPN Type 2 diabetes mellitus [...] Recorded Patient Health Questionnaire-2 Score 0 01/26/2025 [facility] of Occupat ional [...] [facility] [address] [place] [address] Mckayla Blas, SIVLANO [address] [place] [address] 05/28/2025 10:30 AM EST Office Visit [facility] [facility] [address] [place] [address] Rain Souza MD [address] [place] [address] 02/01/2026 6:00 PM EDT Office Visit [facility] [address] [place] [address] Mckayla Blas, SILVANO [address] [place] [address] documented as of this encounter Visit Diagnoses Diagnosis Type 2 diabetes mellitus with other circulatory complications (HCC) documented in this encounter Additional Health Concerns Assessment Noted Time PHQ-9 Depression Total Score: 3 01/17/20 10:08 AM EDT documented as of this encounter Care Teams Toll Transmission Worker Relationship Specialty Start Date End Date Ty Amin MD [address] [place] [address] PCP - General Family Medicine 09/20/23 Mckayla Blas NP [address] [place] [address] Nurse Practitioner Family Medicine 09/20/23 documented as of this encounter
--- OUTSIDE RECORDS SUMMARY | 2025-03-10 10:10 | XMS_ITS | Encounter Summary ---
Author Organization [facility] Address [address] [place] [address] Care Team Providers Care Data Steward Name Role Phone Ty Amin MD Primary Care Provider [phone] Mckayla Blas CUSTOMER ACCOUNT MANAGER Unavailable [phone] Mckayla Blas NP Unavailable [phone] Encounter Details Date Type Department Care Team (Late st Contact Info) Description 12/14/2023 Clinisync Result Encounter [facility] External Department Unsolicited Mckayla Blas NP [address] [place] [address] Social History Tobacco Use Types Packs/Day Years [...] How often do you attend chur or buddhist services? 1 to 4 times [...] Recorded Patient Health Questionnaire-2 Score 0 11/01/2023 [facility] of Occupat ional [facility] - Occupational [...] Office Visit [facility] [address] [place] [place] [address] Mckayla Blas, SILVANO [address] [place] [address] 05/28/2025 10:30 AM EST Office Visit [facility] [address] [place] [address] Rain Souza MD [address] [place] [address] 02/01/2026 6:00 PM EDT Office Visit [facility] [address] [place] [address] Mckayla Blas, CUSTOMER ACCOUNT MANAGER [address] [place] [address] documented as of this encounter Procedures Procedure Name Priority Date/Time Associated Diagnosis Comments MM TOMOSYNTHESIS SCREENING BI 12/14/2023 11:21 AM EDT documented in this encounter Results * MM TOMOSYNTHESIS SCREENING BI (12/14/2023 11:21 AM EDT) Anatomical Region Laterality Modality Other 12/14/2023 11:2 1 AM EDT Narrative 12/14/2023 11:22 [place] [address] Mammography Report Signed Patient: MITZI MACIAS MR#: [id number] : 1970 Acct:[id number] Age/Sex: 53 / F ADM Date: 12/13/23 Loc: MAMMO Attending Dr: Mckayla Blas NP Ordering Physician: Mckayla Blas NP Results: Date of Service: 12/13/23 Follow Up: Procedure(s): MM tomosynthesis screening BI Accession Number(s): [id number] cc: Mckayla Blas NP Patient Name: MITZI MACIAS MR#: [id number] : 1970 Exam Date: 12/13/2023 Ordering Doctor: [...] unknown cancer at age 75. LOCATION: [facility] BREAST COMPOSITION: The breasts are almost [...] Signed By: 12/14/23 1122 DD/ 1121 TD/TT: Mechanical Engineering Professor: Procedure Note Radiology, Radiologist, MD - 12/14/2023 [place] [address] Mammography Report Signed Patient: MITZI MACIAS LMR#: [id number] : 1970Acct:[id number] Age/Sex: 53 / FADM Date: 12/13/23 Loc: MAMMO Attending Dr: Mckayla Blas NP Ordering Physician: Mckayla Blas NPResults: Date of Service: 12/13/23Follow Up: Procedure(s): MM tomosynthesis screening BI Accession Number(s): [id number] cc: Mckayla Blas NP Patient Name: MITZI MACIAS MR#: [id number] : 1970 Exam Date: 12/13/2023 Ordering Doctor: SAYDA Blas TEACHER MUSIC RADIOLOGY REPORT PROCEDURE: MM TOMOSYNTHESIS SCREENING BI [...] unknown cancer at age 75. LOCATION: [facility] BREAST COMPOSITION: The breasts are almost [...] M.D. Signed By:12/14/23 1122 DD/ 1121 TD/TT: Mechanical Engineering Professor: us Mckayla Blas NP [facility] Final Result documented in this encounter Visit Diagnoses Not on filedocumented in this encounter Care Teams Data Steward Relationship Specialty Start Date End Date Ty Amin MD [address] [place] [address] PCP - General Family Medicine 09/20/23 Mckayla Blas NP [address] [place] [address] PCP - [facility] 09/07/23 01/11/25 Mckayla Blas NP [address] [place] [address] Nurse Practitioner Family Medicine 09/20/23 documented as of this encounter
--- OUTSIDE RECORDS SUMMARY | 2025-03-10 10:10 | XMS_ITS | Clinical Summary ---
Author Organization [facility] Address [address] [place] [address] Care Team Providers Care Spool Cleaner Hand Name Role Phone Ty Amin MD Primary Care Provider [phone] Mckayla Blas NP Unavailable [phone] Allergies No known active allergies Medications [...] if needed for wheezing Active HYDROcodone-acet aminophen ([place]) 5-325 MG tablet 1 tablet as needed [...] DAYS, 1/2 TAB X4 DAYS 025 Active ergocalciferol (Vitamin D2) 1.25 MG (74978 UT) capsuleIndicatio ns:Vitamin D deficiency, unspecified Take 1 capsule (1.25 mg) by mouth 1 (one) time per week 12 capsule 1 025 2024 Active sulfamethoxazole -trimethoprim (Bactrim DS) 800-160 MG per tablet TAKE 1 TABLET BY MOUTH TWICE A DAY FOR 14 DAYS 025 Active amitriptyline (Elavil) 25 MG tabletIndication s:Insomnia Take 1 tablet (25 mg) by mouth at bedtime 90 tablet 1 025 2024 Active aspirin 81 MG chewable tabletIndication [...] the afternoon as needed 90 tablet 1 2024 Active furosemide (Lasix) 40 MG tabletIndication s:Bilateral lower extremity edema Take 1 tablet (40 mg) by mouth Daily 90 tablet 1 2024 Active hydrALAZINE (Apresoline) 25 MG tabletIndication s:Primary hypertension Take 1 tablet (25 mg) by mouth in the morning and 1 tablet (25 mg) before bedtime. 180 tablet 2024 Active lisinopril 20 MG tabletIndication s:Primary hypertension Take 1 tablet (20 mg) by mouth Daily 90 tablet 2024 Active omeprazole (PriLOSEC) [address] [...] long-term current use of insulin ([facility]) Inject 58 Units under the skin in the morning and 58 Units before bedtime. 104.4 mL 1 025 2025 Active insulin glargine (Lantus SoloStar) 100 UNIT/ML penIndications:T ype 2 diabetes mellitus with hyperglycemia, with long-term current use of insulin ([facility]) INJECT 58 UNITS SUBCUTANEOUSLY TWICE A DAY 105 mL 2 025 Active Tirzepatide (Mounjaro) 15 MG/0.5ML solution auto-injectorInd ications:Type 2 diabetes mellitus with other circulatory complications (HCC) Inject 15 mg under the skin 1 (one) time per week 6 mL 1 025 Active varenicline (Chantix) 1 MG tabletIndication s:Tobacco user,Encounter for smoking cessation counseling TAKE 1 TABLET BY MOUTH IN THE MORNING AND 1 TABLET BEFORE BEDTIME. TAKE WITH FULL GLASS OF WATER. 60 tablet 1 025 Active Tirzepatide (Mounjaro) 15 MG/0.5ML solution auto-injectorInd ications:Type 2 diabetes mellitus with other circulatory complications (HCC) INJECT 15MG SUBCUTANEOUSLY ONCE A WEEK 6 mL 1 024 2024 Discontinued Lantus SoloStar 100 UNIT/ML pen 025 2024 Discontinued varenicline (Chantix) 1 MG tabletIndication s:Tobacco user,Encounter for smoking cessation counseling Take 1 tablet (1 mg) by mouth in the morning and 1 tablet (1 mg) before bedtime. Take with full glass of water. 60 tablet 1 025 2024 Discontinued Tirzepatide (Mounjaro) 15 MG/0.5ML [...] wrapped, 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 as possible terminologist current use of inhaled steroid 025 Non-pressure [...] if helps Encounter for subsequent [facility] wellness visit (AWV) in Medicare [...] can try ubrelvy #3 samples given: Lot [id number], exp 03/2025 Mixed incontinence 11/14/2023 Arthritis 11/14/2023 [...] is necessary they take over prescribing Pancreatitis ([facility]) 09/17/2023 COPD exacerbation 09/17/2023 Assessment [...] 11:17 AM EDT): Open wounds refer to [facility] Wound Care Pulmonary hypertension 09/17/2023 Assessment & Plan (01/26/2025 7:52 AM EDT): Has seen [facility] Cardiology Assessment & Plan (12/09/2024 7:23 AM EDT): Has seen [facility] Cardiology Assessment & Plan (11/15/2023 3:49 PM EDT): Saw [facility] Cardiology See notes Going to see Pulmonary Assessment & Plan (09/27/2023 1:03 PM EDT): Needs to wear her PAP I am also going to have her see [facility] Cardiology as well PAD (peripheral artery disease) [...] Plan (01/26/2025 7:53 AM EDT): Continue with lyricacintia mgmt is prescribing OARRS reviewed Fu in 3 months Goal: tighter glucose control, this has been improving, latest A1c is 7.4%!!! Assessment & Plan (10/27/2024 2:37 PM EDT): Continue with lyricacintia mgmt is prescribing OARRS reviewed Fu in 3 months Goal: tighter glucose control, this has been improving, latest A1c is 7.4%!!! Assessment & Plan (08/27/2024 6:06 PM EST): Continue with lyneenaacintia mgmt is prescribing OARRS reviewed Fu in 3 months Goal: tighter glucose control Assessment & Plan (07/14/2024 8:18 AM EST): Continue with lyrica OARRS reviewed Fu in 3 months Assessment & Plan (04/14/2024 11:41 AM EDT): Continue with tristan EAST reviewed Fu in [...] spiriva Will trial breztri: #2 samples given [id number], exp 03/03, rinse mouth after use Give [...] PM EDT): Current meds: albuterol, duoneb, Has inbound customer service agent 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 Assessment & Plan (08/27/2024 7:30 AM EST): Current meds: albuterol, duoneb, Has inbound customer service agent 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 Assessment & Plan (01/17/2024 [...] from hospital, lost script I did contact [facility] in [place], they will get another fill on this [...] with Libby On asa, tila, statin, farxiga, moungenevievero Most recent A1c is 9.2% on 05/27/24 [...] Encounters Date Type Department Care Team Description 03/09/2025 Refill [facility] [address] [place] [address] Mckayla Blas NP Tobacco user; Encounter for smoking cessation counseling 02/27/2025 Refill [facility] [address] [place] [address] Amber Pinzon LPN Type 2 diabetes mellitus with other circulatory complications (HCC) 02/26/2025 Refill [facility] [address] [place] [address] Rain Odonnell MD Type 2 diabetes mellitus with other circulatory complications (HCC) 02/18/2025 Abstract [facility] [address] [place] [address] Mckayla Blas NP 02/14/2025 Refill [facility] [address] [place] [address] Rain Odonnell MD Type 2 diabetes mellitus with hyperglycemia, with long-term current use of insulin (HCC) 01/29/2025 9:40 AM EDT Office Visit [facility] [address] [place] [address] Rain Odonnell MD Encounter for dietary consultation (Primary Dx); Type 2 diabetes mellitus with hyperglycemia, with long-term current use of insulin (HCC); Vitamin D deficiency; Primary hypertension ; Insulin long-term use ([facility]); Hyperlipemia, mixed ; Microalbuminuria; Class 3 severe obesity due to excess calories with serious comorbidity and body mass index (BMI) of 50.0 to 59.9 in adult ([facility]) 01/29/2025 Clinisync Result Encounter [facility] External Department Unsolicited Provider, Generic External Data 01/29/2025 Bamboo flowsheet [facility] [address] [place] [address] Rain Odonnell MD 01/26/2025 6:00 PM EDT Office Visit [facility] [address] [place] [address] Mckayla Blas NP Encounter for subsequent annual [...] Morbid (severe) obesity due to excess calories ([facility]-H[facility]) 01/26/2025 Bamboo flowsheet [facility] [address] [place] [address] Mckayla Blas NP 01/19/2025 Travel 01/16/2025 Refill [facility] [address] [place] [address] Amber Pinzon LPN Vitamin D deficiency, unspecified 01/07/2025 Abstract [facility] [address] [place] [address] Mckayla Blas NP 01/07/2025 Abstract [facility] [address] [place] [address] Mckayla Blas NP 12/18/2024 Refill [facility] [address] [place] [address] Mckayla Blas NP Hyperlipidemia, unspecified ; Tobacco user; Encounter for smoking cessation counseling 12/17/2024 Telephone [facility] [address] [place] [address] Mckayla Blas NP Error (VOID this visit) 12/09/2024 10:00 AM EDT Office Visit [facility] [address] [place] [address] Mckayla Blas NP Cellulitis of left lower extremity (Primary Dx); COPD exacerbation (HCC); Primary hypertension ; Pulmonary hypertension (HCC); Morbid (severe) obesity due to excess calories (CMS-HCC); Type 2 diabetes mellitus with complication, with long-term current use of insulin (HCC); Anxiety and depression ; Fever, unspecified fever cause 12/09/[address] [facility] [address] [place] [address] Mckayla Blas NP 12/08/2024 Travel from Last 3 Months Immunizations Immunization Administration Dates Next Due Influenza Whole 05/02/2013 Influenza, G1N4-4123 04/16/2017,05/10/2016 Influenza, Unspecified 05/18/2023,04/16/2017,08/2015 Influenza, injectable, quadrivalent [...] week 08/26/2024 How often do you attend [facility] or worship services? More than 4 times [...] Recorded Patient Health Questionnaire-2 Score 0 01/26/2025 [facility] Occupat ional Health - Occupational [...] in a mcfp (including now)? No 07/10/2023 Housing Stability Vital Sign Answer Wilmer e Recorded In the last 12 months, was t here a time when you were not able to pay the mortgage or rent on time? No 08/26/2024 Number of Times Moved in the Last Year Not on fi le 08/26/2024 At any time in the past 12 m [facility], were you homeless or living in a mcfp (including now)? No 08/26/2024 Comments Unknown Sex [...] 04/29/2025 6:00 PM EDT [facility] [address] [place] [address] Mckayla Blas, BANQUET LINE COOK [address] [place] [address] 05/28/2025 10:30 AM EST Office Visit [facility] [address] [place] [address] Rain Odonnell MD [address] [place] [address] 02/01/2026 6:00 PM EDT Office Visit [facility] [address] [place] [address] Mckayla Blas, SILVANO [address] [place] [address] Health Maintenance Due Date Last Done Comments [...] EDT Narrative 01/29/2025 6:40 PM EDT [facility] [place] [id number] Cardiology Report Signed Patient: MITZI MACIAS MR#: [id number] : 1970 Acct:[id number] Age/Sex: 54 / F ADM Date: 01/29/25 Loc: CARD Attending Dr: AMI ORO APRN Ordering Physician: AMI ORO APRN Date of Service: 01/29/25 Procedure(s): CA echo doppler complete Accession Number(s): [id number] cc: Mckayla Blas BANQUET LINE COOK; AMI ORO APRN Patient Name: MITZI MACIAS MR#: [id number] : 1970 Exam Date: 01/29/2025 Ordering Doctor: [...] AGUILAR Signed By: 01/29/251839 DD/ 39 TD/TT: Paint Crew Supervisor: Procedure Note Radiology, Radiologist, MD - 01/29/2025 [place] [address] Cardiology Report Signed Patient: MITZI MACIAS LMR#: [id number] : 1970Acct:[id number] Age/Sex: 54 / FADM Date: 01/29/25 Loc: CARD Attending Dr: AMI ORO APRN Ordering Physician: AMI ORO APRN Date of Service: 01/29/25 Procedure(s): CA echo doppler complete Accession Number(s): [id number] cc: Mckayla Blas BANQUET LINE COOK; AMI ORO APRN Patient Name: MITZI MACIAS MR#: [id number] : 1970 Exam Date: 01/29/2025 Ordering Doctor: [...] BHARAT AGUILAR Signed By:01/29/251839 DD/ 39 TD/TT: Paint Crew Supervisor: Generic External Data Provider [facility] [...] Region Laterality Modality Head Other Mckayla Blas BANQUET LINE COOK OPHTH PHOTOGRAPHY Final Result * MM TOMOSYNTHESIS SCREENING BI (12/14/2023 11:21 AM EDT) Anatomical Region Laterality Modality Other 12/14/2023 11:2 1 AM EDT Narrative 12/14/2023 11:22 [place] [address] Mammography Report Signed Patient: MITZI MACIAS MR#: [id number] : 1970 Acct:[id number] Age/Sex: 53 / F ADM Date: 12/13/23 Loc: MAMMO Attending Dr: Mckayla Blas NP Ordering Physician: Mckayla Blas NP Results: Date of Service: 12/13/23 Follow Up: Procedure(s): MM tomosynthesis screening BI Accession Number(s): [id number] cc: Mckayla Blas NP Patient Name: MITZI MACIAS MR#: [id number] : 1970 Exam Date: 12/13/2023 Ordering Doctor: [...] at age 75. LOCATION: [facility] BREAST COMPOSITION: The breasts are almost entirely [...] Signed By: 12/14/23 1122 DD/ 1121 TD/TT: Paint Crew Supervisor: Procedure Note Radiology, Radiologist, MD - 12/14/2023 [place] [address] Mammography Report Signed Patient: MITZI MACIAS LMR#: [id number] : 1970Acct:[id number] Age/Sex: 53 / FADM Date: 12/13/23 Loc: MAMMO Attending Dr: Mckayla Blas BANQUET LINE COOK Ordering Physician: Mckayla Blasesults: Date of Service: 12/13/23Follow Up: Procedure(s): MM tomosynthesis screening BI Accession Number(s): [id number] cc: Mckayla Blas NP Patient Name: MITZI MACIAS MR#: [id number] : 1970 Exam Date: 12/13/2023 Ordering Doctor: [...] at age 75. LOCATION: [facility] BREAST COMPOSITION: The breasts are almost entirely [...] M.D. Signed By:12/14/23 1122 DD/ 1121 TD/TT: Paint Crew Supervisor: Mckayla Blas NP [facility] Final Result from Last 3 Months or Most Recently Relevant to Health Maintenance Insurance [facility] Care Teams Spool Cleaner Hand Relationship Specialty Start Date End Date Ty Amin MD [address] [place] [address] PCP - General Family Medicine 09/20/23 Mckayla Blas NP [address] [place] [address] Nurse Practitioner Family Medicine 09/20/23
--- OUTSIDE RECORDS SUMMARY | 2025-03-10 10:10 | XMS_ITS | Encounter Summary ---
Author Organization [facility] Address [address] [place] [address] Care Team Providers Care Senior Php Software Developer Name Role Phone Ty Amin MD Primary Care Provider [phone] Ty Amin MD Primary Care Provider [phone] Mckayla Blas ENGINEERING PROGRAM ANALYST Unavailable [phone] Mckayla Blas ENGINEERING PROGRAM ANALYST Unavailable [phone] Encounter Details Date Type Department Care Team (Late st Contact Info) Description 07/08/2023 Abstract [facility] [address] [place] [address] Mckayla Blas ENGINEERING PROGRAM ANALYST [address] [place] [address] Social History Tobacco Use Types Packs/Day Years [...] 6:00 PM EDT Office Visit [facility] [address] [place] [address] Mckayla Blas, ENGINEERING PROGRAM ANALYST [address] [place] [address] 05/28/2025 10:30 AM EST Office Visit [facility] [address] [place] [address] Rain Souza MD [address] [place] [address] 02/01/2026 6:00 PM EDT Office Visit [facility] [address] [place] [address] Mckayla Blas, ENGINEERING PROGRAM ANALYST [address] [place] [address] documented as of this encounter Visit Diagnoses Not on filedocumented in this encounter Care Teams Senior Php Software Developer Relationship Specialty Start Date End Date Ty Amin MD PCP - General Family Medicine 01/05/23 09/19/23 Ty Amin MD [address] [place] [address] PCP - General Family Medicine 09/20/23 Mckayla Blas NP [address] [place] [address] PCP - [facility] 09/07/23 01/11/25 Mckayla Blas NP [address] [place] [address] Nurse Practitioner Family Medicine 09/20/23 documented as of this encounter
--- OUTSIDE RECORDS SUMMARY | 2025-03-10 10:10 | XMS_ITS | Encounter Summary ---
Author Organization [facility] Address [address] [place] [address] Care Team Providers Care Sportspersons Name Role Phone Ty Amin MD Primary Care Provider [phone] Mckayla Blas WHIZZER OPERATOR Unavailable [phone] Mckayla Blas WHIZZER OPERATOR Unavailable [phone] Reason for Visit * Reason Comments Med Refill Encounter Details Date Type Department Care Team (Late st Contact Info) Description 11/27/2023 Refill [facility] [address] [place] [address] Mckayla Blas WHIZZER OPERATOR [address] [place] [address] Chronic obstructive pulmonary disease, unspecified (HCC) Social [...] do you attend chur or quaker services? 1 to 4 times per year [...] Recorded Patient Health Questionnaire-2 Score 0 11/01/2023 [facility] of Occupat [...] Visit [facility] [address] [place] [address] Mckayla Blas NP [address] [place] [address] 05/28/2025 10:30 AM EST Office Visit [facility] [address] [place] [address] Rain Souza MD [address] [place] [address] 02/01/2026 6:00 PM EDT Office Visit [facility] [address] [place] [address] Mckayla Blas NP [address] [place] [address] documented as of this encounter Visit Diagnoses Diagnosis Chronic obstructive pulmonary disease, unspecified (HCC) documented in this encounter Care Teams Sportspersons Relationship Specialty Start Date End Date Ty Amin MD [address] [place] [address] PCP - General Family Medicine 09/20/23 Mckayla Blas NP [address] [place] [address] PCP - [facility] 09/07/23 01/11/25 Mckayla Blas NP [address] [place] [address] Nurse Practitioner Family Medicine 09/20/23 documented as of this encounter
--- OUTSIDE RECORDS SUMMARY | 2025-03-10 10:10 | XMS_ITS | Clinical Summary ---
Author Organization [facility] Address [address] [place] [address] Care Team Providers Care Link Assembler Name Role Phone Mckayla Blas MD Primary [...] SUBCUTANEOUSLY TWICE DAILY 2 Active HYDROcodone-ac etaminophen (Tyrone) 5-325 mg tablet TAKE 1 TABLET BY MOUTH THREE TIMES A DAY NEEDED FOR PAIN MUST LAST 30 DAYS 4 Active DULoxetine (Cymbalta) [address] capsule Take 1 tablet by mouth in the morning. Active ergocalciferol (Vitamin D-2) 1.25 MG (85160 Units) capsule Take 1.25 mg by mouth. 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 retirement current use of inhaled steroid 025 Vitamin [...] Assessment & Plan: Open wounds refer to [facility] Wound Care Vaginal yeast infection [...] [facility] Cardiology as well Encounters Date Type Department Care Team Description 02/04/2025 Results Follow-Up Cardiology [address] [place] [address] Karma Chatterjee CNP Complete Echo (TTE) w/wo Imaging Agent, Strain, 3D, Bubble Study 01/30/2025 Orders Only [facility] [address] [place] [address] Provider, MD Dale 01/06/2025 11:20 AM EDT Office Visit [facility] [address] [facility] [address] Karma Chatterjee CNP Chronic diastolic heart failure [...] drink = 0.6 oz pur e alcohol) [place] Safety & Environment Answer Date Rec orded [...] 2) 2020 COVID-19 Vaccine (4 - season) 2025 07/19/2021, 10/28/2020, 10/08/2020 Influenza Vaccine (#1) 2025 [...] Months Insurance [employer] MEDICARE Care Teams Link Assembler Relationship Specialty Start Date End Date Mckayla Blas MD [address] [place] [place] [address] PCP - General Nurse Practitioner 11/13/23
--- OUTSIDE RECORDS SUMMARY | 2025-03-10 10:10 | XMS_ITS | Encounter Summary ---
Author Organization [facility] Address [address] [place] [facility] [place] [address] Care Team Providers Care Landscaping And Groundskeeping Laborer Name Role Phone Ty Amin MD Primary Care Provider [phone] Mckayla Blas STRIPPER COLOR Unavailable [phone] Mckayla Blas NP Unavailable [phone] Encounter Details Date Type Department Care Team (Late st Contact Info) Description 12/17/2023 Orders Only [facility] [address] [place] [address] Mckayla Blas NP [address] [place] [address] Social History Tobacco Use Types Packs/Day Years [...] Recorded Patient Health Questionnaire-2 Score 0 11/01/2023 [facility] of Occupat ional [...] Office Visit [facility] [address] [place] [address] Mckayla Blas NP [address] [place] [address] 05/28/2025 10:30 AM EST Office Visit [facility] [address] [place] [address] Rain Souza MD [address] [place] [address] 02/01/2026 6:00 PM EDT Office Visit [facility] [address] [place] [address] Mckayla Blas NP [address] [place] [address] documented as of this encounter Procedures Procedure Name Priority Date/Time Associated Diagnosis Comments MM SCREENING MAMM WITH 3D SERENA - US AND ADDITIONAL Routine 12/14/2023 8:34 AM EDT documented in this encounter Results * MM SCREENING MAMM WITH 3D SERENA - US AND ADDITIONAL (12/14/2023 8:34 AM EDT) Anatomical Region Laterality Modality Radiographic Kalani ging us Mckayla Blas STRIPPER COLOR IMG XR PROCEDURES Final Result documented in this encounter Visit Diagnoses Not on filedocumented in this encounter Care Teams Landscaping And Groundskeeping Laborer Relationship Specialty Start Date End Date Ty Amin MD [address] [place] [address] PCP - General Family Medicine 09/20/23 Mckayla Blas NP [address] [place] [address] PCP - [facility] 09/07/23 01/11/25 Mckayla Blas NP [address] [place] [address] Nurse Practitioner Family Medicine 09/20/23 documented as of this encounter
--- OUTSIDE RECORDS SUMMARY | 2025-03-10 10:10 | XMS_ITS | Encounter Summary ---
Author Organization [facility] Address [address] [place] [address] Care Team Providers Care Chemistry Quality Control Technician Name Role Phone Ty Amin MD Primary Care Provider [phone] Mckayla Blas NP Unavailable [phone] Reason for Visit * Reason Comments Med Refill Encounter Details Date Type Department Care Team (Late st Contact Info) Description 03/09/2025 Refill [facility] [address] [place] [address] Mckayla Blas NP [address] [place] [address] Tobacco user; Encounter for smoking cessation counseling Social History Tobacco Use Types Packs/Day Years [...] Recorded Patient Health Questionnaire-2 Score 0 01/26/2025 [facility] of Occupat ional Health [...] any time in the past 12 m [facility], were you homeless or living [...] Visit [facility] [address] [place] [address] Mckayla Blas NP [address] [place] [address] 05/28/2025 10:30 AM EST Office Visit [facility] [address] [place] [address] Rain Souza MD [address] [place] [address] 02/01/2026 6:00 PM EDT Office Visit [facility] [address] [place] [address] Mckayla Blas, SILVANO [address] [place] [address] documented as of this encounter Visit Diagnoses Diagnosis Tobacco user Tobacco use disorder Encounter for smoking cessation counseling documented in this encounter Additional Health Concerns Assessment Noted Time PHQ-9 Depression Total Score: 3 01/17/20 10:08 AM EDT documented as of this encounter Care Teams Chemistry Quality Control Technician Relationship Specialty Start Date End Date Ty Amin MD [address] [place] [address] PCP - General Family Medicine 09/20/23 Mckayla Blas NP [address] [place] [address] Nurse Practitioner Family Medicine 09/20/23 documented as of this encounter
--- OUTSIDE RECORDS SUMMARY | 2025-03-10 10:10 | XMS_ITS | Encounter Summary ---
Author Organization [facility] Address [address] [place] [address] Care Team Providers Care Floors Buffer Name Role Phone Ty Amin MD Primary Care Provider [phone] Mckayla Blas NP Unavailable [phone] Reason for Visit * Reason Comments Med Refill Encounter Details Date Type Department Care Team (Late st Contact Info) Description 02/26/2025 [facility]ill [facility] [address] [place] [address] Rain Souza MD [address] [place] [address] Type 2 diabetes mellitus with other circulatory [...] do you attend chur or presybeterian services? More than 4 times per year [...] Recorded Patient Health Questionnaire-2 Score 0 01/26/2025 [facility] [...] [facility] [address] [place] [address] Mckayla Blas NP [address] [place] [address] 05/28/2025 10:30 AM EST Office Visit [facility] [place] [facility] [address] [place] [address] Rain Souza MD [address] [place] [address] 02/01/2026 6:00 PM EDT Office Visit [facility] [address] [place] [address] Mckayla Blas NP [address] [place] [address] documented as of this encounter Visit Diagnoses Diagnosis Type 2 diabetes mellitus with other circulatory complications (HCC) documented in this encounter Additional Health Concerns Assessment Noted Time PHQ-9 Depression Total Score: 3 01/17/20 10:08 AM EDT documented as of this encounter Care Teams Floors Buffer Relationship Specialty Start Date End Date Ty Amin MD [address] [place] [address] PCP - General Family Medicine 09/20/23 Mckayla Blas NP [address] [place] [address] Nurse Practitioner Family Medicine 09/20/23 documented as of this encounter
== END 2025-03-10 10:08 | disposition home or self-care (01) ==
LOC: WC 10:07
PROVIDERS: PCP Nurse Practitioner; Visit Provider Physician Assistant
DX: I87.311 Chronic venous hypertension (idiopathic) with ulcer of right lower extremity (principal); L97.812 Non-pressure chronic ulcer of other part of right lower leg with fat layer exposed
CPT/HCPCS: 29581

== ENCOUNTER 2025-03-13 11:00 | Outpatient (OUT) | payer MEDICARE, SELFPAY ==
--- OUTSIDE RECORDS SUMMARY | 2023-10-09 10:27 | XMS_ITS ---
Author Organization [facility] [place] Address [address] [place] [address] Care Team Providers Care Surveillance Operator Name Role Phone Mckayla Blas CNP Primary Care Provider Armando Limon Unavailable [phone] REASON FOR VISIT Referral appt date/time Encounters Encounter Location Date Provider Diagnosis Pulmonary Medicine [place] [address] [place] [address] 10/09/2023 Armando Yañez Plan Of Treatment No Information Progress Notes * MACIASMitzi CARPIO LDOB:[birth year] (53 yo F)Acc No.[id number]:10/09/2023 Patient: Mitzi Rajan :1970 A ge:53 Y S ex:Female Address:[address] [place] [id number] * true * Date: Generated for Tiffanyi terrence/Luis/eTransmitting on: 0 03/13/2025 11:41 AM EDT
--- OUTSIDE RECORDS SUMMARY | 2023-12-05 05:00 | XMS_ITS ---
Author Organization [facility] in [place] Address [address] [place] [address] Care Team Providers Care Instructional Resource Teacher Name Role Phone Mckayla Blas CNP Primary Care Provider Unavail able Armando Yañez Unavailable [phone] Allergies No Known Allergies REASON FOR VISIT Referral-Emphysema Medications Medication SIG (Take, Route, Frequency, Duration) Notes Start Date End Date Status Amitriptyline HCl 25 MG TAKE 1 TABLET BY MOUTH EVERYDAY AT BEDTIME Oral for 90 Days Active Albuterol Sulfate HFA 108 (90 Base) MCG/ACT 1 puff as needed Inhalation every 4 hrs Active Albuterol Sulfate (2.5 MG/3ML) 0.083% 3 mL as needed Inhalation every 6 hrs 12/05/2023 Active Varenicline Tartrate (Starter) 0.5 MG X 11 & 1 MG X 42 as directed Orally BID for 25 days Dispense #1 pack 12/05/2023 Active Breztri Aerosphere 160-9-4.8 MCG/ACT Inhalation for 30 Days Active Potassium Chloride ER 10 MEQ Oral for 90 Days Active Varenicline Tartrate(Continue) 1 MG as directed Orally BID for 30 days Dispense #1 pack (begin after completing starter pack) 12/05/2023 Active Vitamin D (Ergocalciferol) 1.25 MG (31874 UT) Oral for 90 Days Activ e Simvastatin 10 MG Oral for 90 Days Active Roflumilast 250 MCG Oral for 28 Days Active Lantus SoloStar 100 UNIT/ML INJECT 58 UNITS SUBCUTANEOUSLY TWICE A DAY Subcutaneous for 90 Days Active HYDROcodone-Acetamin ophen 5-325 MG Oral for 30 Days Active hydrALAZINE HCl 25 MG TAKE 1 TABLET BY MOUTH TWICE A DAY Oral for 90 Days Active Mounjaro 10 MG/0.5ML Subcutaneous for 84 Days Active Lisinopril 20 MG Oral for 90 Days Active Farxiga 10 MG Oral for 90 Days Active [facility] Aspirin Adult Low Dose 81 MG CHEW 1 TABLET (81 MG) DAILY Oral for 90 Days Active [facility] Allergy Relief(Cetirizine) 10 MG TAKE 1 TABLET (10 MG) BY MOUTH DAILY. Oral for 90 Days Active Social History Tobacco Use: Social History Observation Description Date Details (start date - stop date) Current Smoker NA - NA Tobacco Control (Standard) Question Answer Notes Tobacco use: Current every day smoker Additional Findings: Tobacco user Moderate cigar ette smoker (10-19 cigs/day) Problems Problem Type SNOMED Code ICD Code Onset Dates Problem Status W/U Status Risk Notes Problem COPD - Chronic obstructive pulmonary disease (03633408) COPD (chronic obstructive pulmonary disease) (J44.9) Active confirmed Problem Obstructive sleep apnea syndrome (54561108) DANIEL (obstructive sleep apnea) (G47.33) Active confirmed Problem 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) Cigarette nicotine dependence with nicotine-induce d disorder (F17.219) Active confirmed Problem Diabetes mellitus type 2 (disorder) (68714253) DM2 (diabetes mellitus, type 2) (E11.9) Active confirmed Problem Abnormal arterial blood gas (705058761) Elevated carbon dioxide level (R79.81) Active confirmed Problem Long-term current use of inhaled steroid (654300724) half-way (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 inhaled steroids (Z79.51) Active confirmed Problem 449041743 Morbid (severe) obesity due to excess calories (E66.01) Active confirmed Vital Signs Weight 354.0 lbs 12/05/2023 Height 67 in 12/05/2023 Blood pressure systolic 137 mm Hg 12/05/19 Blood pressure diastolic 83 mm Hg 024 Temperature 96.2 degrees Fahrenheit 12/05/19 24 Heart Rate 74 /min 12/05/2023 Respiratory Rate 20 /min 12/05/2023 BMI 55.44 kg/m2 12/05/2023 Oximetry 94 % 12/05/2023 Procedures Procedure Date Ordered Date Performed Result Body Sit e Smoking/Tobacco Counseling 3 min up to 10-performed 12/05/2023 12/05/2023 N/A Encounters Encounter Location Date Provider Diagnosis [facility] [address] [place] [address] 12/05/2023 Armando Yañez COPD (chronic obstructive pulmonary disease) J44.9 ; Cigarette nicotine dependence with nicotine-induced disorder F17.219 ; DANIEL (obstructive sleep apnea) G47.33 ; Elevated carbon dioxide level R79.81 ; DM2 (diabetes mellitus, type 2) E11.9 ; intermodal customer service (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 inhaled steroids Z79.51 ; Morbid (severe) obesity due to excess calories E66.01 and Body mass index [BMI] 50.0-59.9, adult Z68.43 Assessments Encounter Date Diagnosis (ICD Code) Assessment Notes Treatment Notes Treatment Clinical Notes Section Notes 12/05/2023 COPD (chronic obstructive pulmonary disease) (ICD-10 - J44.9) COPD clinically - spirometries non-diagnostic secondary to obesity inducing a restrictive physiology. Explained to patient that she is already on triple inhaled therapy. There are few options left to treat - theophylline's metabolism is affected by smoking and prednisone has a litany of adverse effects and would especially be detrimental to her DM2. She is non-compliant with BiPAP (d/t not gettting appropriate mask from DME as she claims) - appears that she is on the course to develop obesity hypoventilation syndrome (OHS) as pCO2 is in the low 50's. She also continues to smoke 1/2 - 1 ppd and is morbidly obese (despite losing weight). Sushil discussion with patient that the appropriate treatment at this time consists simply of lifestyle modifications. Of course, this is easier said than done. Encouraged her to stop smoking, continue losing weight, F/U with DME regarding mask and start using BiPAP. As there is not much else I can do at this time, will have her F/U in 1 year. 12/05/2023 Cigarette nicotine dependence with nicotine-induce d disorder (ICD-10 - F17.219) ~1ppd x 40+ years tobacco abuse. Discussed smoking cessation for 4 minutes. Patient was counseled on the benefits of smoking cessation including decreased risk of lung cancer and development of respiratory illnesses (e.g. COPD). Smoking cessation strategies discussed/considere d include nicotine replacement therapy, bupropion (Wellbutrin/Zyban), varenicline (Chantix), alternative treatments (e.g. acupuncture, hypnosis), and cold turkey. She voiced she has tried everything but cannot quit. Regardless, her continued self-destructive behavior is expected to continue to worsen her breathing and overall health. Explained she needs to commit to quit, and discussed with her significant other that it is better if they quit together. She voiced she was agreeable to retry Chantix - Rx sent in for starter pack and 2 continuing packs. She qualifies for LDCT screening. This can be ordered for August 2024 - I did not order it today; if it is not ordered by her PCP, I will order it @ her F/U visit in 1 year. 12/05/2023 DANIEL (obstructive sleep apnea) (ICD-10 - G47.33) Severe DANIEL - Split night study 01/22/2023 - AHI 34, failed CPAP, titrated to BiPAP 23/05. Patient claims mask slips off and is trying to get a new mask from [facility], but alleges they are not calling her back. She was instructed that she needs to contact them again to find out what is wrong - was the order incorrectly sent by the ordering provider, was it too late after original mask, etc. as Medicare rules are quite strict regarding DANIEL supplies. Stressed that is is vitally important that she look into this JOSE as she needs to have her DANIEL compensated for any possibility of surgery, and that the BiPAP will help treat hypercapnia as I am concerned she is in the early stages of developing OHS. 12/05/2023 Elevated carbon dioxide level (ICD-10 - R79.81) Concerning data suggesting early stages of developing OHS: ABG 12/04/2022: pH 7.36, pCO2 54.2 & VG 09/10/2023: pH 7.35, pCO2 51. Instructed patient that she needs to continue losing weight, stopping smoking, and get the BiPAP mask situation rectified and then start wearing it. 12/05/2023 DM2 (diabetes mellitus, type 2) (ICD-10 - E11.9) Steroids prescribed for this patient's underlying pulmonary disease can adversely affect blood glucose levels, inducing hyperglycemia and worsening underlying diabetes. The patient is encouraged to follow up with the primary care provider to create a plan to manage diabetes in this situation. 12/05/2023 intermodal customer service (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 inhaled steroids (ICD-10 - Z79.51) Patient was counseled to rinse & gargle with water after inhaled corticosteroid use. 12/05/2023 Morbid (severe) obesity due to excess calories (ICD-10 - E66.01) Patient's weight is inducing a restrictive pulmonary physiology. Weight loss indicated: Decrease calories, increase activity. 12/05/2023 Body mass index [BMI] 50.0-59.9, adult (ICD-10 - Z68.43) Plan Of Treatment Medication Medication Name Sig Start Date Stop Date Notes Varenicline Tartrate (Starter) 0.5 MG X 11 & 1 MG X 42 as directed Orally BID for 25 days 12/05/2023 Dispense #1 pack Varenicline Tartrate(Continue) 1 MG as directed Orally BID for 30 days 12/05/2023 Dispense #1 pack (begin after completing starter pack) Treatment Notes Assessment Notes COPD (chronic obstructive pu lmonary disease) COPD clinically - spirometries non-diagnostic secondary to obesity inducing a restrictive physiology. Explained to patient that she is already on triple inhaled therapy. There are few options left to treat - theophylline's metabolism is affected by smoking and prednisone has a litany of adverse effects and would especially be detrimental to her DM2. She is non-compliant with BiPAP (d/t not gettting appropriate mask from DME as she claims) - appears that she is on the course to develop obesity hypoventilation syndrome (OHS) as pCO2 is in the low 50's. She also continues to smoke 1/2 - 1 ppd and is morbidly obese (despite losing weight). Sushil discussion with patient that the appropriate treatment at this time consists simply of lifestyle modifications. Of course, this is easier said than done. Encouraged her to stop smoking, continue losing weight, F/U with DME regarding mask and start using BiPAP. As there is not much else I can do at this time, will have her F/U in 1 year. Cigarette nicotine dependenc e with nicotine-induced disorder ~1ppd x 40+ years tobacco abuse. Discussed smoking cessation for 4 minutes. Patient was counseled on the benefits of smoking cessation including decreased risk of lung cancer and development of respiratory illnesses (e.g. COPD). Smoking cessation strategies discussed/considered include nicotine replacement therapy, bupropion (Wellbutrin/Zyban), varenicline (Chantix), alternative treatments (e.g. acupuncture, hypnosis), and cold turkey. She voiced she has tried everything but cannot quit. Regardless, her continued self-destructive behavior is expected to continue to worsen her breathing and overall health. Explained she needs to commit to quit, and discussed with her significant other that it is better if they quit together. She voiced she was agreeable to retry Chantix - Rx sent in for starter pack and 2 continuing packs. She qualifies for LDCT screening. This can be ordered for August 2024 - I did not order it today; if it is not ordered by her PCP, I will order it @ her F/U visit in 1 year. DANIEL (obstructive sleep apnea) Severe DANIEL - Split night study 01/22/2023 - AHI 34, failed CPAP, titrated to BiPAP 23/05. Patient claims mask slips off and is trying to get a new mask from [facility], but alleges they are not calling her back. She was instructed that she needs to contact them again to find out what is wrong - was the order incorrectly sent by the ordering provider, was it too late after original mask, etc. as Medicare rules are quite strict regarding DANIEL supplies. Stressed that is is vitally important that she look into this JOSE as she needs to have her DANIEL compensated for any possibility of surgery, and that the BiPAP will help treat hypercapnia as I am concerned she is in the early stages of developing OHS. Elevated carbon dioxide level Concerning data suggesting early stages of developing OHS: ABG 12/04/2022: pH 7.36, pCO2 54.2 & VG 09/10/2023: pH 7.35, pCO2 51. Instructed patient that she needs to continue losing weight, stopping smoking, and get the BiPAP mask situation rectified and then start wearing it. DM2 (diabetes mellitus, type 2) Steroids prescribed for this patient's underlying pulmonary disease can adversely affect blood glucose levels, inducing hyperglycemia and worsening underlying diabetes. The patient is encouraged to follow up with the primary care provider to create a plan to manage diabetes in this situation. half-way (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 i nhaled steroids Patient was counseled to rinse & gargle with water after inhaled corticosteroid use. Morbid (severe) obesity due to excess calories Patient's weight is inducing a restrictive pulmonary physiology. Weight loss indicated: Decrease calories, increase activity. Next Appt Details Follow Up: 1 Year, Reason: C OPD Procedure Notes * Category Sub-Category Detail Notes PFT Data: 10/24/2018-FEV1/F VC: 77%-FEV1: 70%-FVC: 72%-Bronchodilator response: None-RV: 137%-T%-LDCO: 65%06/01/2017-FEV1/FVC: 74%-FEV1: 74%-FVC: 80%-Bronchodilator response: None-RV: 177%-T%-LDCO: 75% Progress Notes * Mitzi MACIAS LDOB:[birth year] (53 yo F)Acc No.[id number]:12/05/2023 New Patient Patient: Mitzi [facility] Provider: Tray Yañez DO :1970 A ge:53 Y S ex:Female Date:12/05/2023 Address:[address] [place], [place] [id number] Pcp:Mckayla Blas, INSTRUMENT TECHNOLOGIST Check In:09:03 AM ESTCheck O ut:10:07 AM EST Subjective: * Chief Complaints: * R eferral-Emphysema * HPI: G eneral: NEW PATIENT 53yo female presents with multiple medical issues, more specifically COPD, DANIEL, and chronic respiratory failure. States symptoms began ~10 years ago after exposure to a hot tub which eventually lead to 3 weeks on a ventilator in [place] with extended rehab - states her breathing has never quite been the same. Despite this, she has continued to smoke up to 1ppd for 40+ years, which she has tried every but cannot quit d/t co-dependence on cigarettes with her significant other. She had COVID-19 ~2 years ago and was discharged on O2, but currently only uses it when she needs it . S he also has severe DANIEL, but has been non-compliant with CPAP secondary to her DME not supplying her with a correct mask as she claims. She had 3 exacerbations within the last year with COPD - 12/04/2022, 08/31/2023, 09/10/2023. She is currently on Breztri which is better than Symbicort + Spiriva. She also has several cardiac issues which she follows with [facility] - last visit was 11/14/2023 - note was reviewed. They are treating her for LVH and chronic diastolic CHF. Reviewed prior testing, records, etc. She has borderline hypercapnic respiratory failure - ABG 12/04/2022 - pH 7.36 & pCO2 54.2; VBG 09/10/2023 - pH 7.35, pCO2 51. CTA 08/31/2023 note MILTON GGO with dilated pulmonary artery. Prior CTA 12/04/2022 - tree-in-bud findings MILTON and GGO in [facility].? Split-night study notes severe DANIEL with AHI 34, failed CPAP, and titrated to BiPAP 23/05. Echocardiogram 09/03/2023 noted severe LVH, normal RV systolic function, unable to measure RVSP.? PFT from 10/24/2018 and 06/01/2017 were reviewed - non-diagnostic spirometry (most likely due to morbid obesity) with impaired DLCO - 65% and 75% respectively. She is morbidly obese, but states she has already lost 100+ pounds. She cannot get excess skin removed as she may plan on losing more weight. Cannot have orthopaedic surgery d/t ongoing smoking, etc. MA Intake Comments: Patient is referred from Mckayla Blas NP for Emphysema. Patient admits to smoking a 1/2-1ppd. Patient states she has never seen Pulmonary in the past. Patient complains of SOB with exertion. Patient wears supplemental oxygen at home sometimes but is unsure of the liter flow or DME. Patient states she should be wearing a PAP at HS but is unable to tolerate the mask. Patient states she has not heard from [facility] regarding the mask. Patient is currently using Breztri daily with benefit. Patient reports rare albuterol use. Patient states the Breztri is working better than Symbicort & Sprivia that she was previously on. Patient denies any exacerbations since being on Breztri. Patient is under the care of [facility] Cardiology. Patient states she needs to have a Right TKA but states she is unable to have the surgery due to excess skin. Patient states her exacerbations are brought on by certain smells. * ROS: G eneral/Constitutional: Fever or sweats d enies. C hange of appetite d enies. C hills d enies. W eight Change d enies. H EENT: Dry mouth d enies. S ore throat d enies. O ral Ulcers d enies. P ost Nasal Drip D enies. C ongestion D enies. H oarseness?Denies. C ardiovascular: Tachycardia d enies. C hest pain d enies. P alpitations d enies. R espiratory: Chest tightness d enies. P leurisy D enies. D yspnea a dmits. C ough d enies. H emoptysis d enies. W heezing d enies. G astrointestinal: Acid Reflux/GERD/Heartburn d enies. D ysphagia d enies. M usculoskeletal: Arthralgias/joint pain A dmits. S kin: Easy bruising d enies. R shannan d enies. ? N eurologic: Seizures d enies. T remor d enies. H ematology: Abnormal Bleeding d enies. P sychiatric: Anxiety a dmits. * Active Problem List Z79.51 half-way (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 inhaled steroids Modified On:12/05/2023U Status:confirmed J44.9 COPD (chronic obstru ctive pulmonary disease) Modified On:12/05/2023U Status:confirmed G47.33 DANIEL (obstructive sle ep apnea) Modified On:12/05/2023U Status:confirmed E11.9 DM2 (diabetes [facility], type 2) Modified On:12/05/2023U Status:confirmed F17.219 Cigarette nicotine d ependence with nicotine-induced disorder Modified On:12/05/2023U Status:confirmed R79.81 Elevated carbon diox saul level Modified On:12/05/2023U Status:confirmed E66.01 Morbid (severe) obes ity due to excess calories Modified On:12/05/2023U Status:confirmed * Medical History: * Surgical History: h ysterectomy cholecystectomy toe surgery * Hospitalization/Major Diagno stic Procedure: P neumonia -TBH 4COPD Exacerbation-TBH 09/10/2023 * Family History: F ather: . M other: . P aternal Grandfather: asthma, emphysema. P aternal Grandmother: stroke, diagnosed with Diabetes, Hypertension, Heart Disease. S ister(s): diagnosed with Diabetes. * Social History: T obacco Use: L M: Additional Tobacco Questions N umber of Years Pt Smoked: 3 5 N umber of Packs per Day: 1 Electronic Cigarette use C urrent user N o Is there smoking in the household? 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 D rugs/Alcohol: D rugs H ave you used drugs other than those for medical reasons in the past 12 months? N o D oes the Patient have a History of Drug Abuse in the Past? N o Caffeine I ntake: 2 -3 cups per day Coffee Do you drink alcohol?: Yes, Socially. Do you smoke marijuana?: Denies. * Medications: T akingAlbuterol Sulfate (2.5 MG/3ML) 0.083% Nebulization Solution 3 mL as needed Inhalation every 6 hrs Albuterol Sulfate HFA 108 (90 Base) MCG/ACT Aerosol Solution 1 puff as needed Inhalation every 4 hrs Amitriptyline HCl 25 MG Tablet TAKE 1 TABLET BY MOUTH EVERYDAY AT BEDTIME Oral Breztri Aerosphere(Pfhxoac-Edlcixanqtk-Tbzkakvann) 160-9-4.8 MCG/ACT Aerosol Inhalation CVS Allergy Relief(Cetirizine)(Cetirizine HCl) 10 MG Tablet TAKE 1 TABLET (10 MG) BY MOUTH DAILY. Oral [facility] Aspirin Adult Low Dose(Aspirin) 81 MG Tablet Chewable CHEW 1 TABLET (81 MG) DAILY Oral Farxiga(Dapagliflozin Propanediol) 10 MG Tablet Oral hydrALAZINE HCl 25 MG Tablet TAKE 1 TABLET BY MOUTH TWICE A DAY Oral HYDROcodone-Acetaminophen 5-325 MG Tablet Oral Lantus SoloStar(Insulin Glargine) 100 UNIT/ML Solution Pen-injector INJECT 58 UNITS SUBCUTANEOUSLY TWICE A DAY Subcutaneous Lisinopril 20 MG Tablet Oral Mounjaro(Tirzepatide) 10 MG/0.5ML Solution Pen-injector Subcutaneous Potassium Chloride ER 10 MEQ Capsule Extended Release Oral Roflumilast 250 MCG Tablet Oral Simvastatin 10 MG Tablet Oral Vitamin D (Ergocalciferol) 1.25 MG (48918 UT) Capsule Oral Medication List reviewed and reconciled with the patientTaking Albuterol Sulfate (2.5 MG/3ML) 0.083% Nebulization Solution 3 mL as needed Inhalation every 6 hrs Taking Albuterol Sulfate HFA 108 (90 Base) MCG/ACT Aerosol Solution 1 puff as needed Inhalation every 4 hrs Taking Amitriptyline HCl 25 MG Tablet TAKE 1 TABLET BY MOUTH EVERYDAY AT BEDTIME Oral Taking Breztri Aerosphere(Rwfhopa-Racjzwyorpa-Vnajcxtaxr) 160-9-4.8 MCG/ACT Aerosol Inhalation Taking CVS Allergy Relief(Cetirizine)(Cetirizine HCl) 10 MG Tablet TAKE 1 TABLET (10 MG) BY MOUTH DAILY. Oral Taking [facility]S Aspirin Adult Low Dose(Aspirin) 81 MG Tablet Chewable CHEW 1 TABLET (81 MG) DAILY Oral Taking Farxiga(Dapagliflozin Propanediol) 10 MG Tablet Oral Taking hydrALAZINE HCl 25 MG Tablet TAKE 1 TABLET BY MOUTH TWICE A DAY Oral Taking HYDROcodone-Acetaminophen 5-325 MG Tablet Oral Taking Lantus SoloStar(Insulin Glargine) 100 UNIT/ML Solution Pen-injector INJECT 58 UNITS SUBCUTANEOUSLY TWICE A DAY Subcutaneous Taking Lisinopril 20 MG Tablet Oral Taking Mounjaro(Tirzepatide) 10 MG/0.5ML Solution Pen-injector Subcutaneous Taking Potassium Chloride ER 10 MEQ Capsule Extended Release Oral Taking Roflumilast 250 MCG Tablet Oral Taking Simvastatin 10 MG Tablet Oral Taking Vitamin D (Ergocalciferol) 1.25 MG (81261 UT) Capsule Oral Medication List reviewed and reconciled with the patient * Allergies: N .K.D.A.no[Allergies Verified] Objective: * Vitals: W t:354.0lbs, Ht:67in, BP:sittin/83mm Hg, Temp:Forehead:96.2F, HR:74/min, RR:20/min, BMI:55.44Index, Oxygen sat %:Room Air:94%, Ht-cm: 170.18 cm, Wt-k.57 kg. * Examination: E xam: GENERAL APPEARANCE: A ppears older than stated age. Morbidly obese. Skin N ormal. Mouth P ink and moist. Oropharynx M allampati Class III. No candidiasis.? Trachea M idline. Chest T horacic Kyphosis - Mild. Respiratory Normal M ovements, E ffort N ormal. Auscultation D iminished breath sounds with expiratory wheezes. Cardiac R egular rate and rhythm. Gastrointestinal E xcessive central adiposity. Vascular 1 + pitting edema. Musculoskeletal I n wheelchair. Neurological F ocal, intact. Psychiatric A lert and oriented x3. Mentation/Cognition N ormal. Assessment: * Assessment: 1. C OPD (chronic obstructive pulmonary disease) - J44.9 (Primary) 2 . C igarette nicotine dependence with nicotine-induced disorder - F17.219 3 . O SA (obstructive sleep apnea) - G47.33 4 . E levated carbon dioxide level - R79.81 5 . D M2 (diabetes mellitus, type 2) - E11.9 6 . L heidi term (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 inhaled steroids - Z79.51 7 . M orbid (severe) obesity due to excess calories - E66.01 8 . B sujey mass index [BMI] 50.0-59.9, adult - Z68.43 Plan: * Treatment: 2. C igarette nicotine dependence with nicotine-induced disorder Start Varenicline Tartrate (Starter) Tablet Therapy Pack, 0.5 MG X 11 & 1 MG X 42, as directed, Orally, BID, 25 days, 1 ea, Refills 0, Notes to Pharmacist: Dispense #1 pack; S tart Varenicline Tartrate(Continue) Tablet, 1 MG, as directed, Orally, BID, 30 days, 1 ea, Refills 2, Notes to Pharmacist: Dispense #1 pack (begin after completing starter pack). P rocedure: Smoking/Tobacco Counseling 3 min up to 10-performed (Performed Date - 12/05/2023) Notes: ~1ppd x 40+ years tobacco abuse. Discussed smoking cessation for 4 minutes. Patient was counseled on the benefits of smoking cessation including decreased risk of lung cancer and development of respiratory illnesses (e.g. COPD). Smoking cessation strategies discussed/considered include nicotine replacement therapy, bupropion (Wellbutrin/Zyban), varenicline (Chantix), alternative treatments (e.g. acupuncture, hypnosis), and cold turkey. She voiced she has tried everything but cannot quit. Regardless, her continued self-destructive behavior is expected to continue to worsen her breathing and overall health. Explained she needs to commit to quit, and discussed with her significant other that it is better if they quit together. She voiced she was agreeable to retry Chantix - Rx sent in for starter pack and 2 continuing packs. She qualifies for LDCT screening. This can be ordered for August 2024 - I did not order it today; if it is not ordered by her PCP, I will order it @ her F/U visit in 1 year. 3. O SA (obstructive sleep apnea) Notes: Severe DANIEL - Split night study 01/22/2023 - AHI 34, failed CPAP, titrated to BiPAP 23/05. Patient claims mask slips off and is trying to get a new mask from [facility], but alleges they are not calling her back. She was instructed that she needs to contact them again to find out what is wrong - was the order incorrectly sent by the ordering provider, was it too late after original mask, etc. as Medicare rules are quite strict regarding DANIEL supplies. Stressed that is is vitally important that she look into this JOSE as she needs to have her DANIEL compensated for any possibility of surgery, and that the BiPAP will help treat hypercapnia as I am concerned she is in the early stages of developing OHS.? 4. E levated carbon dioxide level Notes: Concerning data suggesting early stages of developing OHS: ABG 12/04/2022: pH 7.36, pCO2 54.2 & VG 09/10/2023: pH 7.35, pCO2 51. Instructed patient that she needs to continue losing weight, stopping smoking, and get the BiPAP mask situation rectified and then start wearing it. 5. D M2 (diabetes mellitus, type 2) Notes: Steroids prescribed for this patient's underlying pulmonary disease can adversely affect blood glucose levels, inducing hyperglycemia and worsening underlying diabetes. The patient is encouraged to follow up with the primary care provider to create a plan to manage diabetes in this situation. ? 6. L heidi term (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 inhaled steroids Notes: Patient was counseled to rinse & gargle with water after inhaled corticosteroid use. 7. M orbid (severe) obesity due to excess calories Notes: Patient's weight is inducing a restrictive pulmonary physiology. Weight loss indicated: Decrease calories, increase activity. * Procedures: P FT: Data: 10/24/2018 -FEV1/FVC: 77% -FEV1: 70% -FVC: 72% -Bronchodilator response: None -RV: 137% -T% -LDCO: 65% 06/01/2017 -FEV1/FVC: 74% -FEV1: 74% -FVC: 80% -Bronchodilator response: None -RV: 177% -T% -LDCO: 75%. * Procedure Codes: 9 9406 SMOKING CESSATION, 3-10MIN * Preventive Medicine: COVID Vaccination: H as patient had COVID Vaccination? COVID Vaccination Y es 07/19/2021 Immunization Status: P neumovacc p neumovacc 23-04/16/2017. I nfluenza 1 07/18/2022. Screenings/Counseling: F ALL RISK SCREENING Fall Risk Assessment: N o falls in the past year Are you afraid of falling? Y es T [place] ACTION PLAN Patient counselled on the dangers of tobacco use and urged to quit. 0 12/05/2023 Cessation counseling provided 0 12/05/2023 B [place] ACTION PLAN Above Normal BMI Follow-up D ietary management education, guidance, and counseling * Follow Up: 1 Year (Reason: COPD) * * Sign off status: Completed Visit Status: C HK (Check Out) true * Provider: Tray Yañez DO Date: 0 12/05/2023 Generated for Vanessa ocampo/Luis/Mckennaitting on: 0 03/13/2025 11:42 AM EDT History and Physical Notes * Examination Category Sub-Category Detail Notes Category Not es Exam GENERAL APPEARANCE: Appears olde r than stated age. Morbidly obese Skin Normal Mouth [place] and moist Trachea Midline Chest Thoracic Kyphosis - Mild Respiratory Normal Movements, Ef fort Normal Auscultation Diminished breath so unds with expiratory wheezes Cardiac Regular rate and rhy thm Gastrointestinal Excessive central ad iposity Vascular 1+ pitting edema Musculoskeletal In wheelchair Neurological Focal, intact Psychiatric Alert and oriented x 3 Mentation/Cognition Normal Oropharynx Mallampati Class III . No candidiasis
--- OUTSIDE RECORDS SUMMARY | 2024-12-02 05:30 | XMS_ITS ---
Author Organization The [facility] in [place] Address [address] [place] [address] Care Team Providers Care Nurse Name Role Phone Mckayla Blas CNP Primary Care Provider Armando Limon Unavailable [phone] REASON FOR VISIT 1YEAR-COPD Encounters Encounter Location Date Provider Diagnosis Pulmonary Medicine [place] [address] [place] [address] 12/02/2024 Armando Yañez Plan Of Treatment No Information Progress Notes * Mitzi AMCIAS LDOB:[birth year] (54 yo F)Acc No.[id number]:12/02/2024 UNLOCKED PROGRESS NOTE Follow Up Patient: Mitzi COX Provider: Tray Yañez DO :1970 A ge:54 Y S ex:Female Date:12/02/2024 Address:[address] [place], [place] [address] Pcp:Mckayla Blas CNP Subjective: * Chief Complaints: * 1 . 1YEAR-COPD. * Medical History: Objective: * Vitals: Assessment: Plan: * Treatment: * * Electronic signature of Radha Yañez DO on 03/13/2025 at 11:41 AM EDT Sign off status: Pending Visit Status: N /S N/C (No Show/No Charge) * Provider: Tray Yañez DO Date: 0 12/02/2024 Generated for Vanessa ocampo/Luis/eTransmitting on: 0 03/13/2025 11:41 AM EDT
--- OUTSIDE RECORDS SUMMARY | 2024-12-02 05:47 | XMS_ITS ---
Author Organization The [facility] in [place] Address [address] [place] [address] Care Team Providers Care Beauty Culture Teacher Name Role Phone Mckayla Blas CNP Primary Care Provider Armando Limon [phone] REASON FOR VISIT No Show Appointment Encounters Encounter Location Date Provider Diagnosis Pulmonary Medicine [place] [address] [place] [address] 12/02/2024 Armando Yañez Plan Of Treatment No Information Progress Notes * MACIASMitzi CARPIO LDOB:[birth year] (54 yo F)Acc No.[id number]:12/02/2024 Patient: Mitzi COX :1970 A ge:54 Y S ex:Female Address:[address] [place] [address] * true * Date: Generated for Tiffanyi terrence/Luis/eTransmitting on: 0 03/13/2025 11:41 AM EDT
--- OUTSIDE RECORDS SUMMARY | 2025-03-13 11:41 | XMS_ITS | Encounter Summary ---
Author Organization [facility] Address [address] [facility] [address] Care Team Providers Care Office Supervisor Name Role Phone Ty Amin MD Primary Care Provider Mckayla Blas ASSOCIATE PROJECT MANAGER Unavailable [phone] Encounter Details Date Type Department Care Team (Late st Contact Info) Description 02/18/2025 Abstract [facility] [address] [place] [address] Mckayla Blas NP [address] [place] [address] Social History Tobacco Use Types Packs/Day Years [...] How often do you attend chur or scientology services? More than 4 times per year 08/26/2024 Do you belong to any clubs o r organizations such as mandaeism groups, unions, fraternal or athletic groups, or [...] Recorded Patient Health Questionnaire-2 Score 0 01/26/2025 [facility] - [...] time in the past 12 [address] [place] [place], were you homeless or living in a [...] [facility] [address] [place] [address] Rain Souza MD [address] [place] [address] documented as of this encounter Visit Diagnoses Not on filedocumented in this encounter Additional Health Concerns Assessment Noted Time PHQ-9 Depression Total Score: 3 01/17/20 24 10:08 AM EDT documented as of this encounter Care Teams Office Supervisor Relationship Specialty Start Date End Date Ty Amin MD PCP - General Family Medicine 09/20/23 Mckayla Blas NP Nurse Practitioner Family Medicine 09/20/23 documented as of this encounter
--- OUTSIDE RECORDS SUMMARY | 2025-03-13 11:41 | XMS_ITS | Encounter Summary ---
Author Organization [facility] Address [address] [place] [address] Care Team Providers Care Berry Grower Name Role Phone Ty Amin MD Primary Care Provider [phone] Mckayla Blas KNOT BORER Unavailable [phone] Mckayla Blas NP Unavailable [phone] Encounter Details Date Type Department Care Team (Late st Contact Info) Description 01/07/2025 Abstract [facility] [address] [place] [address] Mckayla Blas NP [address] [facility] [place] [address] Social History Tobacco Use Types Packs/Day Years [...] often do you attend chur ch or zoroastrianism services? More than 4 times [...] Recorded Patient Health Questionnaire-2 Score 1 01/17/2024 [facility] - Occupational [...] [facility] [address] [place] [address] Rain Souza MD [address] [place] [address] documented as of this encounter Visit Diagnoses Not on filedocumented in this encounter Additional Health Concerns Assessment Noted Time PHQ-9 Depression Total Score: 3 01/17/20 24 10:08 AM EDT documented as of this encounter Care Teams Berry Grower Relationship Specialty Start Date End Date Ty Amin MD PCP - General Family Medicine 09/20/23 Mckayla Blas NP [address] [place] [address] PCP - [facility] 09/07/23 01/11/25 Mckayla Blas NP Nurse Practitioner Family Medicine 09/20/23 documented as of this encounter
--- OUTSIDE RECORDS SUMMARY | 2025-03-13 11:41 | XMS_ITS | Encounter Summary ---
Author Organization [facility] Address [address] [place] [address] Care Team Providers Care Soil Technologist Name Role Phone Ty Amin MD Primary Care Provider [phone] Ty Amin MD Primary Care Provider [phone] Mckayla Blas ELECTRICAL MANUFACTURING TECHNICIAN Unavailable [phone] Mckayla Blas ELECTRICAL MANUFACTURING TECHNICIAN Unavailable [phone] Encounter Details Date Type Department Care Team (Late st Contact Info) Description 09/12/2023 Orders Only [facility] [address] [place] [address] Social History Tobacco Use Types Packs/Day Years [...] How often do you attend chur or congregational services? 1 to 4 times [...] Recorded Patient Health Questionnaire-2 Score 2 07/10/2023 [facility] - [...] [facility] [address] [place] [address] Rain Souza MD [address] [place] [address] documented as of this encounter Procedures Procedure Name Priority Date/Time Associated Diagnosis Comments XR CHEST 1 VIEW Routine 09/11/2023 4:52 PM EST documented in this encounter Results * XR chest 1 view (09/11/2023 4:52 PM EST) Anatomical Region Laterality Modality Chest Radiographic Kalani ging [facility] IMG XR PROCEDURES Final Result documented in this encounter Visit Diagnoses Not on filedocumented in this encounter Care Teams Soil Technologist Relationship Specialty Start Date End Date Ty Amin MD PCP - General Family Medicine 01/05/23 09/19/23 Ty Amin MD PCP - General Family Medicine 09/20/23 Mckayla Blas NP [address] [place] [address] PCP - [facility] 09/07/23 01/11/25 Mckayla Blas NP Nurse Practitioner Family Medicine 09/20/23 documented as of this encounter
--- OUTSIDE RECORDS SUMMARY | 2025-03-13 11:41 | XMS_ITS | Encounter Summary ---
Author Organization [facility] Address [address] [place] [address] Care Team Providers Care Maintenance Supervisor 2Nd Shift Name Role Phone Ty Amin MD Primary Care Provider [phone] Mckayla Blas NP Unavailable [phone] Mckayla Blas NP Unavailable [phone] Encounter Details Date Type Department Care [...] Recorded Patient Health Questionnaire-2 Score 1 01/17/2024 [facility] - [...] [facility] [address] [place] [address] Rain Souza MD [address] [place] [address] documented as of this encounter Procedures Procedure Name Priority Date/Time Associated Diagnosis Comments CT ABDOMEN PELVIS W CON 05/12/2024 2:16 PM EST documented in this encounter Results * CT ABDOMEN PELVIS W CON (05/12/2024 2:16 PM EST) Anatomical Region Laterality Modality Other 05/12/2024 2:16 PM EST Narrative 05/12/2024 2:19 PM EST The [address] [address] [address] Scan Report Signed Patient: MITZI MACIAS MR#: [id number] : 1970 Acct:[id number] Age/Sex: 53 / F ADM Date: 05/12/24 Loc: CT Attending Dr: Sarah MAYERS Ordering Physician: Sarah Vega Date of Service: 05/12/24 Procedure(s): CT abdomen pelvis w con Accession Number(s): [id number] cc: Mckayla Blas NP [place] [address] [place], [place] [address] Patient Name: MITZI MACIAS MRN: [facility]:[id number] date: 1970 Sex: F Assigned Patient Location: CT Current Patient Location: Accession/Order Number: [id number] Exam Date: 05/12/2024 11:15 Report Date: 05/12/2024 [...] Signed By: 05/12/24 1419 DD/ 1416 TD/TT: Quebracho Tanner: Procedure Note Radiology, Radiologist, MD - 05/12/2024 [place] [address] CT Scan Report Signed Patient: MITZI MACIAS LMR#: [id number] : 1970Acct:[id number] Age/Sex: 53 / FADM Date: 05/12/24 Loc: CT Attending Dr: Sarah MAYERS Ordering Physician: Sarah Vega Date of Service: 05/12/24 Procedure(s): CT abdomen pelvis w con Accession Number(s): [id number] cc: Mckayla Blas NP The [place] [id number] Patient Name: MITZI MACIAS MRN: [facility]:[id number] date: 1970 Sex: F Assigned Patient Location: CT Current Patient Location: Accession/Order Number: [id number] Exam Date: 05/12/2024 11:15 Report Date: 05/12/2024 [...] M.D. Signed By:05/12/24 1419 DD/ 1416 TD/TT: Quebracho Tanner: Generic External Data Provider [facility] Final Result documented in this encounter Visit Diagnoses Not on filedocumented in this encounter Additional Health Concerns Assessment Noted Time PHQ-9 Depression Total Score: 3 01/17/20 24 10:08 AM EDT documented as of this encounter Care Teams Maintenance Supervisor 2Nd Shift Relationship Specialty Start Date End Date Ty Amin MD PCP - General Family Medicine 09/20/23 Mckayla Blas NP [address] [place] [address] PCP - [facility] 09/07/23 01/11/25 Mckayla Blas NP Nurse Practitioner Family Medicine 09/20/23 documented as of this encounter
--- OUTSIDE RECORDS SUMMARY | 2025-03-13 11:41 | XMS_ITS | Encounter Summary ---
Author Organization [facility] Address [address] [place] [address] Care Team Providers Care Foreign Trade Teacher Name Role Phone Ty Amin MD Primary Care Provider [phone] Mckayla Blas NP Unavailable [phone] Mckayla Blas NP Unavailable [phone] Encounter Details Date Type Department Care [...] Recorded Patient Health Questionnaire-2 Score 1 01/17/2024 [facility] - [...] [facility] [address] [place] [address] Rain Souza MD [address] [place] [address] documented as of this encounter Procedures Procedure Name Priority Date/Time Associated Diagnosis Comments MR LUMBAR SPINE WO CON 05/12/2024 2:41 PM EST documented in this encounter Results * MR LUMBAR SPINE WO CON (05/12/2024 2:41 PM EST) Anatomical Region Laterality Modality Other 05/12/2024 2:41 PM EST Narrative 05/12/2024 2:43 PM EST The [address] [address] Magnetic Resonance Report Signed Patient: MITZI MACIAS MR#: [id number] : 1970 Acct:[id number] Age/Sex: 53 / F ADM Date: 05/12/24 Loc: MRI Attending Dr: Angela Chin HOT IRON WORKER Ordering Physician: Angela Chin NP Date of Service: 05/12/24 Procedure(s): MR lumbar spine wo con Accession Number(s): [id number] cc: Mckayla Blas NP; Angela Chin NP [place] [address] Patient Name: MITZI MACIAS MRN: [facility]:[id number] date: 1970 Sex: F Assigned Patient Location: MRI Current Patient Location: CT Accession/Order Number: [id number] Exam Date: 05/12/2024 09:21 Report Date: 05/12/2024 [...] Signed By: 05/12/24 1443 DD/ 40 TD/TT: Dietary Clerk: Procedure Note Radiology, Radiologist, MD - 05/12/2024 [place] [address] Magnetic Resonance Report Signed Patient: MITZI MACIAS LMR#: [id number] : 1970Acct:[id number] Age/Sex: 53 / FADM Date: 05/12/24 Loc: MRI Attending Dr: Angela Chin HOT IRON WORKER Ordering Physician: Angela Chin NP Date of Service: 05/12/24 Procedure(s): MR lumbar spine wo con Accession Number(s): [id number] cc: Mckayla Blas HOT IRON WORKER; Angela Chin NP The [place] [id number] Patient Name: MITZI MACIAS MRN: [id number] date: 1970 Sex: F Assigned Patient Location: MRI Current Patient Location: CT Accession/Order Number: [id number] Exam Date: 05/12/2024 09:21 Report Date: 05/12/2024 [...] M.D. Signed By:05/12/24 1443 DD/ 144 TD/TT: Dietary Clerk: Generic External Data Provider [facility] Final Result documented in this encounter Visit Diagnoses Not on filedocumented in this encounter Additional Health Concerns Assessment Noted Time PHQ-9 Depression Total Score: 3 01/17/20 24 10:08 AM EDT documented as of this encounter Care Teams Foreign Trade Teacher Relationship Specialty Start Date End Date Ty Amin MD PCP - General Family Medicine 09/20/23 Mckayla Blas NP [address] [place] [address] PCP - [facility] 09/07/23 01/11/25 Mckayla Blas NP Nurse Practitioner Family Medicine 09/20/23 documented as of this encounter
--- OUTSIDE RECORDS SUMMARY | 2025-03-13 11:41 | XMS_ITS | Encounter Summary ---
Author Organization [facility] Address [address] [place] [address] Care Team Providers Care Cloth Worker Name Role Phone Ty Amin MD Primary Care Provider [phone] Mckayla Blas PERSONAL LINES INSURANCE AGENT Unavailable [phone] Mckayla Blas NP Unavailable [phone] Encounter Details Date Type Department Care Team (Late st Contact Info) Description 04/14/2024 Orders Only [facility] [address] [place] [address] Mckayla Blas NP [address] [facility] [place] [address] Social History Tobacco Use Types Packs/Day Years [...] Score 1 01/17/2024 [facility] - Occupational Stress Questionnaire Answer [...] Visit [facility] [address] [place] [address] Rain Souza MD [address] [place] [address] documented as of this encounter Procedures Procedure Name Priority Date/Time Associated Diagnosis Comments XR ANKLE 3+ VIEWS RIGHT Routine 04/14/2024 2:57 PM EDT XR ANKLE 3+ VIEWS RIGHT Routine 04/14/2024 11:20 AM EDT documented in this encounter Results * XR ankle 3+ views right (04/14/2024 2:57 PM EDT) Anatomical Region Laterality Modality Lower Extremities, Ankle Right Radiogr aphic Imaging us Mckayla Blas PERSONAL LINES INSURANCE AGENT IMG XR PROCEDURES Final Result * XR ankle 3+ views right (04/14/2024 11:20 AM EDT) Anatomical Region Laterality Modality Lower Extremities, Ankle Right Radiogr aphic Imaging us Mckayla Blas PERSONAL LINES INSURANCE AGENT IMG XR PROCEDURES Final Result documented in this encounter Visit Diagnoses Not on filedocumented in this encounter Additional Health Concerns Assessment Noted Time PHQ-9 Depression Total Score: 3 01/17/20 10:08 AM EDT documented as of this encounter Care Teams Cloth Worker Relationship Specialty Start Date End Date Ty Amin MD PCP - General Family Medicine 09/20/23 Mckayla Blas NP [address] [place] [address] PCP - [facility] 09/07/23 01/11/25 Mckayla Blas NP Nurse Practitioner Family Medicine 09/20/23 documented as of this encounter
--- OUTSIDE RECORDS SUMMARY | 2025-03-13 11:41 | XMS_ITS | Encounter Summary ---
Author Organization [facility] Address [address] [place] [address] Care Team Providers Care Director Home Health Name Role Phone Ty Amin MD Primary Care Provider [phone] Ty Amin MD Primary Care Provider [phone] Mckayla Blas INTELLIGENCE SPECIALIST Unavailable [phone] Mckayla Blas INTELLIGENCE SPECIALIST Unavailable [phone] Encounter Details Date Type Department Care Team (Late st Contact Info) Description 08/31/2023 Clinisync Result Encounter [facility] External Department Unsolicited Andra Alcala PA [address] [place] [address] Dr [address] [place], [place] [id number] Social History Tobacco Use Types Packs/Day Years [...] Recorded Patient Health Questionnaire-2 Score 2 07/10/2023 [facility] - Occupational Stress Questionnaire [...] [facility] [address] [place] [address] Rain Souza MD [address] [place] [address] documented as of this encounter Procedures Procedure [...] PM EST 09/10/2023 2:29 PM EST Narrative [facility] - 09/16/2023 1:07 PM EDT us Generic External Data Provider LAB BLOOD ORDERAB LES Final Result Performing Organization Address City/[facility]/ZIP Co de Phone Number [facility] * BLOOD CULTURE 1 (09/10/2023 2:05 PM EST) Pathologist [facility] BLOOD CULTURE 1 Blood Culture 1 NG5D NO GROWTH AT 5 DAYS.^NO GROWTH AT 5 DAYS. [facility] 09/10/2023 2:05 PM EST 09/10/2023 2:28 PM EST Narrative [facility] - 09/16/2023 1:07 PM EDT us Generic External Data Provider LAB BLOOD ORDERAB LES Final Result Performing Organization Address [facility] de Phone Number [facility] * ECG 12-LEAD (08/31/2023 6:08 PM EST) Anatomical Region Laterality Modality Other 08/31/2023 6:08 PM EST Narrative 09/02/2023 7:32 [place] [address] Electrocardiograph Report Signed Patient: MITZI MACIAS MR#: [id number] : 1970 Acct:[id number] Age/Sex: 53 / F ADM Date: 08/31/23 Loc: [place] 214-[address]: Jacqueline Becerra D.O. Ordering Physician: Andra Alcala Date of Service: 08/31/23 Procedure(s): ECG 12 lead Accession Number(s): [id number] cc: [facility] Test Date: 2023-08-31 Pat Name: MITZI MACIAS Department: Room: - Gender: Female Pathology Secretary/Transcriptionist: : 1970 Requested By: CMKAYLA BLAS Order Number: [id number] Reading MD: LAURI DIOR Measurements Intervals Harmony Rate: 102 P: 67 PA: 144 QRS: 52 QRSD: 72 T: 49 QT: 326 QTc: 385 Interpretive Statements 1120 Sinus tachycardia 4068 Nonspecific Twave abnormality 8102 Low QRS voltage in chest leads 9140 abnormal rhythm ECG Compared to ECG 12/04/2022 21:27:48 Electronically Signed On 09-02-2023 7:31:43 EST by ALURI DIOR Dictated By: Lauri Dior D.O. Signed By: 09/02/23731 DD/ 07 TD/TT: Medical Laboratory Technicians: Procedure Note Radiology, Radiologist, MD - 09/02/2023 [place] [address] Electrocardiograph Report Signed Patient: MITZI MACIAS LMR#: [id number] : 1970Acct:[id number] Age/Sex: 53 / FADM Date: 08/31/23 Loc: [place] 214-[address]: Jacqueline Becerra D.O. Ordering Physician: Andra Alcala Date of Service: 08/31/23 Procedure(s): ECG 12 lead Accession Number(s): [id number] cc: The [facility] Test Date: 2023-08-31 Pat Name: MITZI MACIAS Department: Room: - Gender: Female Pathology Secretary/Transcriptionist: : 1970 Requested By: MCKAYLA BLAS Order Number: [id number] Reading MD: LAURI DIOR Measurements Intervals Harmony Rate: 102 P: 67 PA: 144 QRS: 52 QRSD: 72 T: 49 QT: 326 QTc: 385 Interpretive Statements 1120 Sinus tachycardia 4068 Nonspecific Twave abnormality 8102 Low QRS voltage in chest leads 9140 abnormal rhythm ECG Compared to ECG 12/04/2022 21:27:48 Electronically Signed On 09-02-2023 7:31:43 EST by LAURI DIOR Dictated By: Lauri Dior D.O. Signed By:09/02/23731 DD/ 07 TD/TT: Medical Laboratory Technicians: Andra MAYERS [facility] Final Result documented in this encounter Visit Diagnoses Not on filedocumented in this encounter Care Teams Director Home Health Relationship Specialty Start Date End Date Ty Amin MD PCP - General Family Medicine 01/05/23 09/19/23 Ty Amin MD PCP - General Family Medicine 09/20/23 Mckayla Blas NP [address] [place] [address] PCP - [facility] 09/07/23 01/11/25 Mckayla Blas NP Nurse Practitioner Family Medicine 09/20/23 documented as of this encounter
--- OUTSIDE RECORDS SUMMARY | 2025-03-13 11:41 | XMS_ITS | Encounter Summary ---
Author Organization [facility] tem Address [id number] [address] [place] [address] Care Team Providers Care Clinical Pharmacy Specialist Name Role Phone JuanjoseMckayla carcamo Krystal PEREZN-CHILD DEVELOPMENT INSTRUCTOR Primary Care Provider Encounter Details Date Type Department Care Team (Late st Contact Info) Description 05/31/2020 Orders Only [facility] [address] [place] [address] External, Scanning Provider Social History Tobacco Use [...] on filedocumented in this encounter Care Teams Clinical Pharmacy Specialist Relationship Specialty Start Date End Date Mckayla Blas, SHEARER OPERATOR-CHILD DEVELOPMENT INSTRUCTOR [address] [place] [address] PCP - General Nurse Practitioner 09/25/18 documented as of this encounter
--- OUTSIDE RECORDS SUMMARY | 2025-03-13 11:41 | XMS_ITS | Encounter Summary ---
Author Organization [facility] Address [address] [place] [address] Care Team Providers Care Injector Assembler Name Role Phone Ty Amin MD Primary Care Provider [phone] Mckayla Blas INSTRUCTOR MILITARY SCIENCE Unavailable [phone] Mckayla Blas NP Unavailable [phone] Encounter Details Date Type Department Care Team (Late st Contact Info) Description 07/14/2024 Orders Only [facility] [address] [place] [address] Mckayla Blas NP [address] [facility] [place] [address] Social History Tobacco Use Types Packs/Day Years [...] Recorded Patient Health Questionnaire-2 Score 1 01/17/2024 [facility] - Occupational Stress Questionnaire Answer Date [...] Visit [facility] [address] [place] [address] Rain Souza MD [address] [place] [address] documented as of this encounter Procedures Procedure [...] documented as of this encounter Care Teams Injector Assembler Relationship Specialty Start Date End Date Ty Amin MD PCP - General Family Medicine 09/20/23 Mckayla Blas NP [address] [place] [address] PCP - [facility] 09/07/23 01/11/25 Mckayla Blas NP Nurse Practitioner Family Medicine 09/20/23 documented as of this encounter
--- OUTSIDE RECORDS SUMMARY | 2025-03-13 11:41 | XMS_ITS | Encounter Summary ---
[facility] Address [id number] [address] [place] [address] Care Team Providers Care Forestry Instructor Name Role Phone Mckayla Blas APRN-CRYPTOGRAPHIC CLERK Primary Care Provider Encounter Details Date Type Department Care Team (Late st Contact Info) Description 05/03/2020 [facility]phone [facility] [address] [place] [address] Tramaine Romero DO [address] [place] [address], [address] [id number] Social History Tobacco Use Types Packs/Day Years [...] on filedocumented in this encounter Care Teams Forestry Instructor Relationship Specialty Start Date End Date Mckayla Blas APR[place] [address] PCP - General Nurse Practitioner 09/25/18 documented as of this encounter
--- OUTSIDE RECORDS SUMMARY | 2025-03-13 11:41 | XMS_ITS | Clinical Summary ---
Author Organization [employer] tem Address [id number] [address] [place] [address] Care Team Providers Care Financial Retirement Plan Specialist Name Role Phone Wan Mckayla Krystal PEREZN-BUFFING WHEEL OPERATOR Primary Care Provider Allergies No known [...] Medical Devices Not on file Insurance [place] [employer] MEDICARE Care Teams Financial Retirement Plan Specialist Relationship Specialty Start Date End Date Mckayla Blas APRN-BUFFING WHEEL OPERATOR [address] [place] [address] PCP - General Nurse Practitioner 09/25/18
--- OUTSIDE RECORDS SUMMARY | 2025-03-13 11:41 | XMS_ITS | Encounter Summary ---
Author Organization [facility] Address [id number] [address] [place] [address] Care Team Providers Care Locker Plant Attendant Name Role Phone JuanjoseMckayla carcamo Krystal REHABILITATION TECHNICIAN-INSPECTOR GOVERNMENT PROPERTY Primary Care Provider Encounter Details Date Type Department Care Team (Late st Contact Info) Description 06/11/2020 Orders Only [facility] [address] [place] [address] External, Scanning Provider Social History Tobacco Use [...] on filedocumented in this encounter Care Teams Locker Plant Attendant Relationship Specialty Start Date End Date Mckayla Blas, REHABILITATION TECHNICIAN-INSPECTOR GOVERNMENT PROPERTY [address] [place] [address] PCP - General Nurse Practitioner 09/25/18 documented as of this encounter
--- OUTSIDE RECORDS SUMMARY | 2025-03-13 11:41 | XMS_ITS | Encounter Summary ---
Author Organization [facility] Address [address] [place] [address] Care Team Providers Care Radio Repairer Name Role Phone Mckayla Blas MD Primary Care Provider [phone] Encounter Details Date Type Department Care Team (Late st Contact Info) Description 02/04/2025 Results Follow-Up Cardiology [address] [facility] [place] [address] Karma Chatterjee CNP [address] [place] [address] Complete Echo (TTE) w/wo Imaging Agent, Strain, [...] on filedocumented in this encounter Care Teams Radio Repairer Relationship Specialty Start Date End Date Mckayla Blas MD [address] [place] [address] PCP - General Nurse Practitioner 11/13/23 documented as of this encounter
--- OUTSIDE RECORDS SUMMARY | 2025-03-13 11:41 | XMS_ITS | Encounter Summary ---
Author Organization [employer] Address [id number] [address] [place] [address] Care Team Providers Care Councillor Aboriginal Land Council Name Role Phone JuanjoseMckayla carcamo Krystal DIRECTOR OF HOUSING-FRAME EXPANDER Primary Care Provider Encounter Details Date Type Department Care Team (Late st Contact Info) Description 05/31/2020 Orders Only [facility] [address] [place] [address] External, Scanning Provider Social History Tobacco Use [...] ECG ORDERABLES Final Result Performing Organization Address [facility] Co de Phone Number MANUALLY [...] ECG ORDERABLES Final Result Performing Organization Address [facility] Co de Phone Number MANUALLY TRANSCRIBED RESULTS * Pulmonary function test (10/24/2018) us Scanning Provider External PFT ORDERABLES Final Result Performing Organization Address [facility] Co de Phone Number MANUALLY TRANSCRIBED RESULTS * Nuc stress Lexiscan/Exercise (12/12/2016) Anatomical Region Laterality Modality Chest N/A Nuclear Medicine us Scanning Provider External CV STRESS ORDERABLES Final Result documented in this encounter Visit Diagnoses Not on filedocumented in this encounter Care Teams Councillor Aboriginal Land Council Relationship Specialty Start Date End Date Mckayla Blas, DIRECTOR OF HOUSING-FRAME EXPANDER [address] [place] [address] PCP - General Nurse Practitioner 09/25/18 documented as of this encounter
--- OUTSIDE RECORDS SUMMARY | 2025-03-13 11:41 | XMS_ITS | Encounter Summary ---
Author Organization [facility] Address [address] [place] [address] Care Team Providers Care Religion Teacher Name Role Phone Ty Amin MD Primary Care Provider [phone] Mckayla Blas NP Unavailable [phone] Mckayla Blas NP Unavailable [phone] Encounter Details Date Type Department Care Team (Late st Contact Info) Description 05/12/2024 Orders Only [facility] [address] [place] [address] Angela Cochran NP [address] [place] [address] Social History Tobacco Use Types [...] any clubs o r organizations such as jainism groups, unions, fraternal or athletic groups, or [...] Recorded Patient Health Questionnaire-2 Score 1 01/17/2024 [facility] - [...] Visit [facility] [address] [place] [address] Rain Souza MD [address] [place] [address] documented as of this encounter Procedures Procedure [...] documented as of this encounter Care Teams Religion Teacher Relationship Specialty Start Date End Date Ty Amin MD PCP - General Family Medicine 09/20/23 Mckayla Blas NP [address] [place] [address] PCP - [facility] 09/07/23 01/11/25 Mckayla Blas NP Nurse Practitioner Family Medicine 09/20/23 documented as of this encounter
--- OUTSIDE RECORDS SUMMARY | 2025-03-13 11:41 | XMS_ITS | Encounter Summary ---
Author Organization [facility] Address [address] [place] [address] Care Team Providers Care Promotions Coordinator Name Role Phone Ty Amin MD Primary Care Provider [phone] Mckayla Blas PARTNERSHIP DEVELOPMENT MANAGER Unavailable [phone] Mckayla Blas NP Unavailable [phone] Encounter Details Date Type Department Care Team (Late st Contact Info) Description 01/07/2025 Abstract [facility] [address] [place] [address] Mckayla Blas NP [address] [facility] [place] [address] Social History Tobacco Use Types Packs/Day Years [...] you attend chur ch or lutheran services? More than 4 times per year [...] Recorded Patient Health Questionnaire-2 Score 1 01/17/2024 [facility] [...] time in the past 12 m [facility], were you homeless or [...] [facility] [address] [place] [address] Rain Souza MD [address] [place] [address] documented as of this encounter Visit Diagnoses Not on filedocumented in this encounter Additional Health Concerns Assessment Noted Time PHQ-9 Depression Total Score: 3 01/17/20 24 10:08 AM EDT documented as of this encounter Care Teams Promotions Coordinator Relationship Specialty Start Date End Date Ty Amin MD PCP - General Family Medicine 09/20/23 Mckayla Blas NP [address] [place] [address] PCP - [facility] 09/07/23 01/11/25 Mckayla Blas NP Nurse Practitioner Family Medicine 09/20/23 documented as of this encounter
--- OUTSIDE RECORDS SUMMARY | 2025-03-13 11:41 | XMS_ITS | Encounter Summary ---
Author Organization [facility] Address [address] [place] [address] Care Team Providers Care Drywall Metal Stud Worker Name Role Phone Ty Amin MD Primary Care Provider [phone] Mckayla Blas NP Unavailable [phone] Mckayla Blas NP Unavailable [phone] Encounter Details Date Type Department Care [...] often do you attend chur ch or presybeterian services? 1 to 4 times [...] [facility] [address] [place] [address] Rain Souza MD [address] [place] [address] documented as of this encounter Procedures Procedure Name Priority Date/Time Associated Diagnosis Comments SEGMENTAL BLOOD PRESSURE 04/24/2024 11:20 AM EDT documented in this encounter Results * SEGMENTAL BLOOD PRESSURE (04/24/2024 11:20 AM EDT) Anatomical Region Laterality Modality Radiographic Kalani ging 04/24/2024 11:2 0 AM EDT Narrative 04/24/2024 11:23 AM EDT The [address] [address] Vein Report Signed Patient: MITZI MACIAS MR#: [id number] : 1970 Acct:[id number] Age/Sex: 53 / F ADM Date: 04/24/24 Loc: VC Attending Dr: Rafael Gongora Ordering Physician: Rafael Gongora Date of Service: 04/24/24 Procedure(s): VC SEGMENTAL PRESSURES Accession Number(s): [id number] cc: Mckayla Blas NP; Rafael Gongora The [place] [address] Patient Name: MITZI MACIAS MRN: [id number] date: 1970 Sex: F Assigned Patient Location: VC Current Patient Location: VC Accession/Order Number: [id number] Exam Date: 04/24/2024 10:25 Report Date: 04/24/2024 11:20 At the request of: RAFAEL GONGORA Procedure: VC SEGMENTAL PRESSURES EXAM: VC SEGMENTAL PRESSURES HISTORY: R09.89 COMPARISON: None. FINDINGS: Segmental pressures presented as follows (right, left) in mmHg. Brachial: 169, 166 Upper thigh: Not obtained Lower thigh: 129, 119 Calf: 124, 106 DPA: 108, 105 SHAREBROKER: 100, 91 1st Toe: 124, 142 ISABELLE: [...] Signed By: 04/24/24 1123 DD/ 1120 TD/TT: Linoleum Printer: Procedure Note Radiology, Radiologist, MD - 04/24/2024 [place] [address] Vein Report Signed Patient: MITZI MACIAS LMR#: [id number] : 1970Acct:[id number] Age/Sex: 53 / FADM Date: 04/24/24 Loc: VC Attending Dr: Rafael Gongora Ordering Physician: Rafael Gongora Date of Service: 04/24/24 Procedure(s): VC SEGMENTAL PRESSURES Accession Number(s): [id number] cc: Mckayla Blas NP; Rafael Gongora [place] [id number] Patient Name: MITZI MACIAS MRN: [facility]:[id number] date: 1970 Sex: F Assigned Patient Location: VC Current Patient Location: VC Accession/Order Number: [id number] Exam Date: 04/24/2024 10:25 Report Date: 04/24/2024 11:20 At the request of: RAFAEL GONGORA Procedure: VC SEGMENTAL PRESSURES EXAM: VC SEGMENTAL PRESSURES HISTORY: R09.89 COMPARISON: None. FINDINGS: Segmental pressures presented as follows (right, left) in mmHg. Brachial: 169, 166 Upper thigh: Not obtained Lower thigh: 129, 119 Calf: 124, 106 DPA: 108, 105 SHAREBROKER: 100, 91 1st Toe: 124, 142 ISABELLE: [...] M.D. Signed By:04/24/24 1123 DD/ 1120 TD/TT: Linoleum Printer: us Generic External Data Provider IMG XR PROCEDURES Final Result documented in this encounter Visit Diagnoses Not on filedocumented in this encounter Additional Health Concerns Assessment Noted Time PHQ-9 Depression Total Score: 3 01/17/20 24 10:08 AM EDT documented as of this encounter Care Teams Drywall Metal Stud Worker Relationship Specialty Start Date End Date Ty Amin MD PCP - General Family Medicine 09/20/23 Mckayla Blas NP [address] [place] [address] PCP - [facility] 09/07/23 01/11/25 Mckayla Blas NP Nurse Practitioner Family Medicine 09/20/23 documented as of this encounter
--- OUTSIDE RECORDS SUMMARY | 2025-03-13 11:41 | XMS_ITS | Clinical Summary ---
Author Organization [facility] Address [address] [address] Care Team Providers Care Checkering Machine Adjuster Name Role Phone Mckayla Blas MD Primary Care Provider [phone] Allergies No known active allergies Medications amitriptyline [...] SUBCUTANEOUSLY TWICE DAILY 2 Active HYDROcodone-ac etaminophen ([place]) 5-325 mg tablet TAKE 1 TABLET BY MOUTH THREE TIMES A DAY NEEDED FOR PAIN MUST LAST 30 DAYS 4 Active DULoxetine (Cymbalta) [address] capsule Take 1 tablet by mouth in the morning. Active ergocalciferol (Vitamin D-2) 1.25 MG (40649 Units) capsule Take 1.25 mg by mouth. [...] both lower extremities with ulcer 08/27/2024 senior care current use of inhaled steroid 025 Vitamin [...] Assessment & Plan: Open wounds refer to [facility] Vaginal yeast infection 08/17/2023 11/14/19 [...] 02/04/2025 Results Follow-Up Cardiology [address] [place] [address] Karam Chatterjee CNP Complete Echo (TTE) w/wo Imaging Agent, Strain, 3D, Bubble Study 01/30/[address] [facility] [address] [place] [address] Provider, MD Dale 01/06/2025 11:20 AM EDT Office Visit [facility] [address] [facility] [place] [address] Karma Chatterjee CNP Chronic diastolic heart failure [...] Months Insurance [employer] MEDICARE Care Teams Checkering Machine Adjuster Relationship Specialty Start Date End Date Mckayla Blas MD [address] [place] [address] PCP - General Nurse Practitioner 11/13/23
--- OUTSIDE RECORDS SUMMARY | 2025-03-13 11:41 | XMS_ITS | Clinical Summary ---
Author Organization [facility] Address [address] [place] [address] Care Team Providers Care Coil Maker Name Role Phone Ty Amin MD Primary Care Provider [phone] Mckayla Blas NP Unavailable [phone] Allergies No known active allergies Medications [...] if needed for wheezing Active HYDROcodone-acet aminophen ([place]) 5-325 MG tablet 1 tablet as needed [...] 025 Active ergocalciferol (Vitamin D2) 1.25 MG (11123 UT) capsuleIndicatio ns:Vitamin D deficiency, unspecified Take [...] ([facility]) Inject 58 Units under the skin in the morning and 58 Units before bedtime. 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 025 [...] see if helps Encounter for subsequent [facility] wellness visit (AWV) in Medicare patient [...] can try ubrelvy #3 samples given: Lot [id number], exp 03/2025 Mixed incontinence 11/14/2023 Arthritis 11/14/2023 [...] is necessary they take over prescribing Pancreatitis ([facility]) 09/17/2023 COPD exacerbation 09/17/2023 Assessment & [...] 11:17 AM EDT): Open wounds refer to [facility] Pulmonary hypertension 09/17/2023 Assessment & Plan (01/26/2025 7:52 AM EDT): Has seen [facility] Cardiology Assessment & Plan (12/09/2024 7:23 AM EDT): Has seen [facility] Cardiology Assessment & Plan (11/15/2023 3:49 PM EDT): Saw [facility] Cardiology See notes Going to see Pulmonary Assessment & Plan (09/27/2023 1:03 PM EDT): Needs to wear her PAP I am also going to have her see [facility] Cardiology as well PAD (peripheral [...] spiriva Will trial breztri: #2 samples given [id number], exp 03/03, rinse mouth after use Give [...] PM EDT): Current meds: albuterol, duoneb, 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 [address] [facility] [place] [address] Mckayla Blas NP Tobacco user; Encounter for smoking cessation counseling 02/27/2025 Refill [facility] [address] [place] [address] Amber Pinzon LPN Type 2 diabetes mellitus with other circulatory complications (HCC) 02/26/2025 Refill [facility] [address] [place] [address] Rain Odonnell MD Type 2 diabetes mellitus with other circulatory complications (HCC) 02/18/2025 Abstract [facility] [address] [place] [address] Mckayla Blas NP 02/14/2025 Refill [facility] [address] [place] [address] Rain Odonnell MD Type 2 diabetes mellitus with hyperglycemia, with long-term current use of insulin (HCC) 01/29/2025 9:40 AM EDT Office Visit [facility] [address] [place] [address] Rain Odonnell MD Encounter for dietary consultation (Primary Dx); Type 2 diabetes mellitus with hyperglycemia, with long-term current use of insulin (HCC); Vitamin D deficiency; Primary hypertension ; Insulin long-term use (HCC); Hyperlipemia, mixed ; Microalbuminuria; Class 3 severe obesity due to excess calories with serious comorbidity and body mass index (BMI) of 50.0 to 59.9 in adult ([facility]) 01/29/2025 Clinisync Result Encounter [facility] External Department Unsolicited Provider, Generic External Data 01/29/2025 Bamboo flowsheet [facility] [address] [place] [address] Rain Odonnell MD 01/26/2025 6:00 PM EDT Office Visit [facility] [address] [place] [address] Mckayla Blas NP Encounter for subsequent annual [...] Morbid (severe) obesity due to excess calories ([facility]) 01/26/2025 Bamboo flowsheet [facility] [address] [place] [address] Mckayla Blas NP 01/19/2025 Travel 01/16/2025 Refill [facility] [address] [place] [address] Amber Pinzon LPN Vitamin D deficiency, unspecified 01/07/2025 Abstract [facility] [address] [facility] [place] [address] Mckayla Blas NP 01/07/2025 Abstract [facility] [address] [facility] [place] [address] Mckayla Blas NP 12/18/2024 Refill [facility] [address] [facility] [place] [address] Mckayla Blas NP Hyperlipidemia, unspecified ; Tobacco user; Encounter for smoking cessation counseling 12/17/2024 Telephone [facility] [address] [place] [address] Mckayla Blas NP Error (VOID this visit) from Last 3 Months Immunizations Immunization Administration Dates Next Due Influenza Whole 05/02/2013 Influenza, [id number] 04/16/2017,05/10/2016 Influenza, Unspecified 05/18/2023,04/16/2017,08/2015 Influenza, injectable, quadrivalent [...] week 08/26/2024 How often do you attend [facility] or oriental orthodox services? More than 4 times per [...] Recorded Patient Health Questionnaire-2 Score 0 01/26/2025 [facility] - Occupational Stress Questionnaire Answer Date Recorded [...] EST Office Visit [facility] [address] [place] [address] Rain Odonnell MD [address] [place] [address] Health Maintenance Due Date Last Done Comments [...] EDT Narrative 01/29/2025 6:40 PM EDT The [address] [address] Cardiology Report Signed Patient: SINA MACIAS MR#: [id number] : 1970 Acct:[id number] Age/Sex: 54 / F ADM Date: 01/29/25 Loc: CARD Attending Dr: AMI ORO APRN Ordering Physician: AMI ORO APRN Date of Service: 01/29/25 Procedure(s): CA echo doppler complete Accession Number(s): [id number] cc: Mckayla Blas INSPECTION MACHINE TENDER; AMI ORO APRN Patient Name: SINA MACIAS MR#: [id number] : 1970 Exam Date: 01/29/2025 Ordering Doctor: AMI ORO CREDIT PRODUCTS OFFICER ECHOCARDIOGRAM REPORT PROCEDURE: CA ECHO DOPPLER COMPLETE [...] AGUILAR Signed By: 01/29/251839 DD/ 39 TD/TT: Chemical Research Technician: Procedure Note Radiology, Radiologist, MD - 01/29/2025 The [place] [id number] Cardiology Report Signed Patient: SINA MACIAS LMR#: [id number] : 1970Acct:[id number] Age/Sex: 54 / FADM Date: 01/29/25 Loc: CARD Attending Dr: AMI ORO APRN Ordering Physician: AMI ORO APRN Date of Service: 01/29/25 Procedure(s): CA echo doppler complete Accession Number(s): [id number] cc: Mckayla Blas NP; AMI ORO APRN Patient Name: SINA MACIAS MR#: [id number] : 1970 Exam Date: 01/29/2025 Ordering Doctor: AMI ORO CREDIT PRODUCTS OFFICER ECHOCARDIOGRAM REPORT PROCEDURE: CA ECHO DOPPLER COMPLETE [...] BHARAT AGUILAR Signed By:01/29/251839 DD/ 39 TD/TT: Chemical Research Technician: Generic External Data Provider [facility] Final [...] EDT Narrative 12/14/2023 11:22 [place] [address] Mammography Report Signed Patient: SINA MACIAS MR#: [id number] : 1970 Acct:[id number] Age/Sex: 53 / F ADM Date: 12/13/23 Loc: MAMMO Attending Dr: Mckayla Blas NP Ordering Physician: Mckayla Blas NP Results: Date of Service: 12/13/23 Follow Up: Procedure(s): MM tomosynthesis screening BI Accession Number(s): [id number] cc: Mckayla Blas NP Patient Name: SINA MACIAS MR#: [id number] : 1970 Exam Date: 12/13/2023 Ordering Doctor: [...] Signed By: 12/14/23 1122 DD/ 1121 TD/TT: Chemical Research Technician: Procedure Note Radiology, Radiologist, MD - 12/14/2023 [place] [address] Mammography Report Signed Patient: SINA MACIAS LMR#: [id number] : 1970Acct:[id number] Age/Sex: 53 / FADM Date: 12/13/23 Loc: MAMMO Attending Dr: Mckayla Blas NP Ordering Physician: Mckayla Blas NPResults: Date of Service: 12/13/23Follow Up: Procedure(s): MM tomosynthesis screening BI Accession Number(s): [id number] cc: Mckayla Blas NP Patient Name: SINA MACIAS MR#: [id number] : 1970 Exam Date: 12/13/2023 Ordering Doctor: SAYDA Blas CREDIT PRODUCTS OFFICER RADIOLOGY REPORT PROCEDURE: MM TOMOSYNTHESIS SCREENING BI [...] M.D. Signed By:12/14/23 1122 DD/ 1121 TD/TT: Chemical Research Technician: Mckayla Blas NP [facility] Final Result from Last 3 Months or Most Recently Relevant to Health Maintenance Insurance MEDICARE [facility] Care Teams Coil Maker Relationship Specialty Start Date End Date Ty Amin MD PCP - General Family Medicine 09/20/23 Mckayla Blas NP Nurse Practitioner Family Medicine 09/20/23
--- OUTSIDE RECORDS SUMMARY | 2025-03-13 11:42 | XMS_ITS | Encounter Summary ---
Author Organization [facility] Address [address] [place] [address] Care Team Providers Care Bull Gang Supervisor Name Role Phone Ty Amin MD Primary Care Provider [phone] Mckayla Blas MALTER OPERATOR Unavailable [phone] Mckayla Blas MALTER OPERATOR Unavailable [phone] Reason for Visit * Reason Comments Med Refill Encounter Details Date Type Department Care Team (Late st Contact Info) Description 11/27/2023 Refill [facility] [address] [place] [address] Mckayla Blas NP [address] [facility] [place] [address] Chronic obstructive pulmonary disease, unspecified (HCC) Social [...] How often do you attend chur or orthodox services? 1 to 4 times [...] Recorded Patient Health Questionnaire-2 Score 0 11/01/2023 [facility] Occupat [...] [facility] [address] [place] [address] Rain Souza MD [address] [place] [address] documented as of this encounter Visit Diagnoses Diagnosis Chronic obstructive pulmonary disease, unspecified (HCC) documented in this encounter Care Teams Bull Gang Supervisor Relationship Specialty Start Date End Date Ty Amin MD PCP - General Family Medicine 09/20/23 Mckayla Blas NP [address] [place] [address] PCP - [facility] 09/07/23 01/11/25 Mckayla Blas NP Nurse Practitioner Family Medicine 09/20/23 documented as of this encounter
--- OUTSIDE RECORDS SUMMARY | 2025-03-13 11:42 | XMS_ITS | Encounter Summary ---
Author Organization [facility] Address [address] [place] [address] Care Team Providers Care Flight Operation Coordinator Name Role Phone Ty Amin MD Primary Care Provider [phone] Mckayla Blas NP Unavailable [phone] Reason for Visit * Reason Comments Med Refill Encounter Details Date Type Department Care Team (Late st Contact Info) Description 02/26/2025 Refill [facility] [address] [place] [address] Rain Souza MD [address] [place] [address] Type 2 diabetes mellitus with other circulatory [...] do you attend chur or tenriism services? More than 4 times [...] Patient Health Questionnaire-2 Score 0 01/26/2025 [facility] [...] Endocrinology [address] [place] [address] Rain Souza MD [address] [place] [address] documented as of this encounter Visit Diagnoses Diagnosis Type 2 diabetes mellitus with other circulatory complications (HCC) documented in this encounter Additional Health Concerns Assessment Noted Time PHQ-9 Depression Total Score: 3 01/17/20 24 10:08 AM EDT documented as of this encounter Care Teams Flight Operation Coordinator Relationship Specialty Start Date End Date Ty Amin MD PCP - General Family Medicine 09/20/23 Mckayla Blas NP Nurse Practitioner Family Medicine 09/20/23 documented as of this encounter
--- OUTSIDE RECORDS SUMMARY | 2025-03-13 11:42 | XMS_ITS | Encounter Summary ---
Author Organization [facility] Address [address] [place] [address] Care Team Providers Care Narcotics Investigator Name Role Phone Ty Amin MD Primary Care Provider [phone] Mckayla Blas DISTRIBUTOR ADVERTISING MATERIAL Unavailable [phone] Mckayla Blas NP Unavailable [phone] Encounter Details Date Type Department Care Team (Late st Contact Info) Description 12/14/2023 Clinisync Result Encounter [facility] External Department Unsolicited Mckayla Blas NP [address] [place] [address] Social History Tobacco Use Types Packs/Day Years [...] How often do you attend chur or latter day services? 1 to 4 times per year 07/10/2023 Do you belong to any clubs o r organizations such as samaritan groups, unions, fraternal or athletic groups, or [...] Recorded Patient Health Questionnaire-2 Score 0 11/01/2023 [facility] - Occupational Stress Questionnaire Answer Date Recorded [...] [facility] [place] [facility] [address] [place] [address] Rain Souza MD [address] [place] [address] documented as of this encounter Procedures Procedure Name Priority Date/Time Associated Diagnosis Comments MM TOMOSYNTHESIS SCREENING BI 12/14/2023 11:21 AM EDT documented in this encounter Results * MM TOMOSYNTHESIS SCREENING BI (12/14/2023 11:21 AM EDT) Anatomical Region Laterality Modality Other 12/14/2023 11:2 1 AM EDT Narrative 12/14/2023 11:22 AM EDT The [address] [address] Mammography Report Signed Patient: MITZI MACIAS MR#: [id number] : 1970 Acct:[id number] Age/Sex: 53 / F ADM Date: 12/13/23 Loc: MAMMO Attending Dr: Mckayla Blas NP Ordering Physician: Mckayla Blas NP Results: Date of Service: 12/13/23 Follow Up: Procedure(s): MM tomosynthesis screening BI Accession Number(s): [id number] cc: Mcakyla Blas NP Patient Name: MITZI MACIAS MR#: [id number] : 1970 Exam Date: 12/13/2023 Ordering Doctor: [...] unknown cancer at age 75. LOCATION: [facility] BREAST COMPOSITION: The breasts are almost [...] Signed By: 12/14/23 1122 DD/ 1121 TD/TT: Title I Math Tutor: Procedure Note Radiology, Radiologist, MD - 12/14/2023 [place] [address] Mammography Report Signed Patient: MITZI MACIAS LMR#: [id number] : 1970Acct:[id number] Age/Sex: 53 / FADM Date: 12/13/23 Loc: MAMMO Attending Dr: Mckayla Blas DISTRIBUTOR ADVERTISING MATERIAL Ordering Physician: Mckayla Blas NPResults: Date of Service: 12/13/23Follow Up: Procedure(s): MM tomosynthesis screening BI Accession Number(s): [id number] cc: Mckayla Blas NP Patient Name: MITZI MACIAS MR#: [id number] : 1970 Exam Date: 12/13/2023 Ordering Doctor: SAYDA Blas SOLDERING MACHINE TENDER RADIOLOGY REPORT PROCEDURE: MM TOMOSYNTHESIS SCREENING BI [...] unknown cancer at age 75. LOCATION: [facility] BREAST COMPOSITION: The breasts are almost [...] M.D. Signed By:12/14/23 1122 DD/ 1121 TD/TT: Title I Math Tutor: us Mckayla Blas NP [facility] Final Result documented in this encounter Visit Diagnoses Not on filedocumented in this encounter Care Teams Narcotics Investigator Relationship Specialty Start Date End Date Ty Amin MD PCP - General Family Medicine 09/20/23 Mckayla Blas NP [address] [place] [address] PCP - [facility] 09/07/23 01/11/25 Mckayla Blas NP Nurse Practitioner Family Medicine 09/20/23 documented as of this encounter
--- OUTSIDE RECORDS SUMMARY | 2025-03-13 11:42 | XMS_ITS | Encounter Summary ---
Author Organization [facility] Address [address] [facility] [place] [address] Care Team Providers Care Orchestra Director Name Role Phone Ty Amin MD Primary Care Provider [phone] Mckayla Blas HEAT TREAT OPERATOR Unavailable [phone] Mckayla Blas NP Unavailable [phone] Encounter Details Date Type Department Care Team (Late st Contact Info) Description 12/17/2023 Orders Only [facility] [address] [place] [address] Mckayla Blas NP [address] [place] [address] Social History Tobacco Use Types Packs/Day Years [...] often do you attend chur ch or orthodoxy services? 1 to 4 times [...] 11/01/2023 [facility] [...] [facility] [place] [facility] [address] [place] [address] Rain Souza MD [address] [place] [address] documented as of this encounter Procedures Procedure [...] on filedocumented in this encounter Care Teams Orchestra Director Relationship Specialty Start Date End Date Naderer, Ty, MD PCP - General Family Medicine 09/20/23 Mckayla Blas NP [address] [place] [address] PCP - [facility] 09/07/23 01/11/25 Mckayla Blas NP Nurse Practitioner Family Medicine 09/20/23 documented as of this encounter
--- OUTSIDE RECORDS SUMMARY | 2025-03-13 11:42 | XMS_ITS | Encounter Summary ---
Author Organization [facility] Address [address] [place] [address] Care Team Providers Care Copy Worker Name Role Phone Ty Amin MD Primary Care Provider [phone] Mckayla Blas NP Unavailable [phone] Reason for Visit * Reason Onset Date Comments Med Refill 02/27/2025 Encounter Details Date Type Department Care Team (Late st Contact Info) Description 02/27/2025 Refill [facility] [address] [place] [address] Amber Pinzon LPN Type 2 diabetes mellitus [...] [facility] [address] [place] [address] Rain Souza MD [address] [place] [address] documented as of this encounter Visit Diagnoses Diagnosis Type 2 diabetes mellitus with other circulatory complications (HCC) documented in this encounter Additional Health Concerns Assessment Noted Time PHQ-9 Depression Total Score: 3 01/17/20 24 10:08 AM EDT documented as of this encounter Care Teams Copy Worker Relationship Specialty Start Date End Date Ty Amin MD PCP - General Family Medicine 09/20/23 Mckayla Blas NP Nurse Practitioner Family Medicine 09/20/23 documented as of this encounter
--- OUTSIDE RECORDS SUMMARY | 2025-03-13 11:42 | XMS_ITS | Encounter Summary ---
Author Organization [facility] Address [address] [facility] [place] [address] Care Team Providers Care Burglar Alarm Mechanic Name Role Phone Ty Amin MD Primary Care Provider [phone] Mckayla Blas WINDOWS SERVER SPECIALIST Unavailable [phone] Reason for Visit * Reason Comments Med Refill Encounter Details Date Type Department Care Team (Late st Contact Info) Description 03/09/2025 Refill [facility] [address] [place] [address] Mckayla Blas, WINDOWS SERVER SPECIALIST [address] [facility] [place] [address] Tobacco user; Encounter for smoking cessation counseling [...] do you attend chur or orthodox services? More than 4 times [...] Patient Health Questionnaire-2 Score 0 01/26/2025 [facility] [...] the past [address] [facility], were you homeless or living in a [...] Endocrinology [address] [place] [address] Rain Souza MD [address] [place] [address] documented as of this encounter Visit Diagnoses Diagnosis Tobacco user Tobacco use disorder Encounter for smoking cessation counseling documented in this encounter Additional Health Concerns Assessment Noted Time PHQ-9 Depression Total Score: 3 01/17/20 24 10:08 AM EDT documented as of this encounter Care Teams Burglar Alarm Mechanic Relationship Specialty Start Date End Date Ty Amin MD PCP - General Family Medicine 09/20/23 Mckayla Blas NP Nurse Practitioner Family Medicine 09/20/23 documented as of this encounter
--- OUTSIDE RECORDS SUMMARY | 2025-03-13 11:42 | XMS_ITS | Encounter Summary ---
Author Organization [facility] Address [address] [place] [address] Care Team Providers Care Key Operator Name Role Phone Ty Amin MD Primary Care Provider [phone] Ty Amin MD Primary Care Provider [phone] Mckayla Blas LASERIST Unavailable [phone] Mckayla Blas LASERIST Unavailable [phone] Encounter Details Date Type Department Care Team (Late st Contact Info) Description 07/08/2023 Abstract [facility] [address] [place] [address] Mckayla Blas NP [address] [place] [address] Social History Tobacco Use Types Packs/Day Years [...] Recorded Patient Health Questionnaire-2 Score 2 07/10/2023 [facility] - [...] Somewhat difficult 07/10/2023 11:17 AM [facility] documented as of this encounter Plan of Treatment Upcoming Encounters Date Type Department Care Team (Late st Contact Info) Description 05/28/2025 10:30 AM EST Office Visit [facility] [place] [facility] [address] [place] [address] Rain Souza MD [address] [place] [address] documented as of this encounter Visit Diagnoses Not on filedocumented in this encounter Care Teams Key Operator Relationship Specialty Start Date End Date Ty Amin MD PCP - General Family Medicine 01/05/23 09/19/23 Ty Amin MD PCP - General Family Medicine 09/20/23 Mckayla Blas NP [address] [facility] [place] [address] PCP - [facility] 09/07/23 01/11/25 Mckayla Blas NP Nurse Practitioner Family Medicine 09/20/23 documented as of this encounter
--- OUTSIDE RECORDS SUMMARY | 2025-03-13 11:42 | XMS_ITS | Patient Health Record ---
Author Organization [facility] [place] Address [address] [place] [address] Care Team Providers Care Supervisor Bottle Machines Name Role Phone Mckayla Blas CNP Primary Care Provider Unavail able Armando Yañez Unavailable [phone] Allergies No Known Allergies Results Component Value Reference Range Notes PROF CHEM 8 (BAS METB) (Not yet reviewed by provider) Interpretation: Performing Lab: Notes/Report: [facility] , Sodium 142 136-145 mmol/L Potassium [...] Performing Lab: see note ML - [facility] CBC AUTO DIFF (Not yet revie wed by provider) Interpretation: Performing Lab: Notes/Report: [facility] , White Blood Count 12.8 4.0-11.0 [...] Performing Lab: see note ML - [facility] VC SEGMENTAL PRESSURES (Not yet reviewed by provider) Interpretation: Performing Lab: Notes/Report: Source Facility: [place] [address] [place] [address] Vein Report Signed Patient: MITZI MACIAS MR#: [id number] : 1970 Acct:[id number] Age/Sex: 53 / F ADM Date: 04/24/24 Loc: VC Attending Dr: Rafael Gongora Ordering Physician: Rafael Gongora Date of Service: 04/24/24 Procedure(s): VC SEGMENTAL PRESSURES Accession Number(s): [id number] cc: Mckayla Blas NP; Rafael Gongora [place] [address] Patient Name: MITZI MACIAS MRN: [facility]:[id number] date: 1970 Sex: F Assigned Patient Location: VC Current Patient Location: VC Accession/Order Number: [id number] Exam Date: 04/24/2024 10:25 Report Date: 04/24/2024 11:20 At the request of: RAFAEL GONGORA Procedure: VC SEGMENTAL PRESSURES EXAM: VC SEGMENTAL PRESSURES HISTORY: R09.89 COMPARISON: None. FINDINGS: Segmental pressures presented as follows (right, left) in mmHg. 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: [place] [address] Vein Report Signed Patient: JASON MACIAS MR#: [id number] : 1970 Acct:[id number] Age/Sex: 53 / F ADM Date: 04/24/24 Loc: VC Attending Dr: Nanci Gongora Ordering Physician: Rafael Gongora Date of Service: 04/24/24 Procedure(s): VC SEGMENTAL PRESSURES Accession Number(s): [id number] cc: Mckayla Blas NP ; Rafael Gongora [place] [id number] Patient Name: MITZI MACIAS MRN: [id number] date: 1970 Sex: F Assigned Patient Location: VC Current Patient Location: VC Accession/Order Numb er: [id number] Exam Date: 10:25 Report Date: 04/24/2024 11:20 At the request of: RAFAEL GONGORA Procedure: VC SEGMEN KARY PRESSURES EXAM: VC SEGMENTAL PRESSURES HISTORY: R09.89 COMPARISON: None. FINDINGS: Segmental pressures presented as follows (right, left) in mmHg. 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: Reason For Referral No Information Medications Medication [...] Days Active Vitamin D (Ergocalciferol) 1.25 MG (63209 UT) Oral for 90 Days Activ e Breztri Aerosphere 160-9-4.8 MCG/ACT Inhalation for 30 Days Active Simvastatin 10 MG Oral for 90 Days Active Roflumilast 250 MCG Oral for 28 Days Active Immunizations Vaccine Route Administration Date Status Comme nts Flu, Fluzone (89415) 6-35mo, multi-dose vial (3898-8992) Unknown 05/18/2023 Administered Pneumococcal (Pneumovax 23) Unknown [...] ulcer due to type 2 diabetes mellitus (6553418302402) Type 2 diabetes mellitus with foot ulcer (E11.621) Active confirmed Problem 243742225 Morbid (severe) obesity due to excess calories (E66.01) Active confirmed Problem Venous ulcer of lower extremity due to chronic peripheral venous hypertension (096486499529485) Chronic venous hypertension (idiopathic) with ulcer of left lower extremity (I87.312) Active confirmed Problem Chronic non-pressure ulcer of calf extending to fat level (0848891450787640 1) Non-pressure chronic ulcer of other part of right lower leg with fat layer exposed (L97.812) Active confirmed Problem Chronic ulcer of skin of lower leg (disorder) (1728189042198695 4) Non-pressure chronic ulcer of other part of left lower leg limited to breakdown of skin (L97.821) Active confirmed Problem 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 exposed (L97.822) Active confirmed Problem Long-term current use of inhaled steroid (726370653) assisted (current) use of inhaled steroids (Z79.51) Active confirmed Problem COPD - Chronic obstructive pulmonary disease (71036033) COPD (chronic obstructive pulmonary disease) (J44.9) Active confirmed Problem Hypertension (96864389) HTN (hypertension) (I10) Active confirmed Problem Obstructive sleep apnea syndrome (58986829) DANIEL (obstructive sleep apnea) (G47.33) Active confirmed Problem Lumbar radiculopathy (525667048) Lumbar radiculopathy (M54.16) Active confirmed Problem Diabetes mellitus type 2 (disorder) (56834149) DM2 (diabetes mellitus, type 2) (E11.9) Active confirmed Problem 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) Cigarette nicotine dependence with nicotine-induced disorder (F17.219) Active confirmed Problem Leukocytosis (694576360) Leukocytosis (D72.829) Active confirmed Problem Acute exacerbation of chronic obstructive airways disease (378947016) COPD with exacerbation (J44.1) Active confirmed Problem 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 (I87.313) Active confirmed Problem Non-prs chr ulce r oth prt l low leg limited to brkdwn skin (L97.821) Active confirmed Problem Stasis dermatitis co-occurrent with venous ulcer of right lower extremity due to chronic peripheral venous hypertension (507598658157704) Idiopathic chronic venous hypertension of right lower extremity with ulcer (I87.311) Active confirmed Problem Chronic venous hypertension with ulcer and inflammation involving left side (I87.332) Active confirmed Problem Abnormal arterial blood gas (676480294) Elevated carbon dioxide level (R79.81) Active confirmed Problem Skin ulcer of right knee, limited to breakdown of skin (L97.811) Active confirmed Encounters Encounter Location Date Provider Diagnosis [facility] [address] [place] [address] 04/07/2024 Armando Yañez [facility] [address] [place] [address] 12/02/2024 Armando De Leonsa Plan Of Treatment Pending Test Test Name Order Date CBC AUTO DIFF 08/27/2024 PROF CHEM 8 (BAS METB) 08/27/2024 VC SEGMENTAL PRESSURES 04/24/2024 Insurance Providers Payer Name Payer Address Payer Phone Subscriber Number Group Number Insured Name Patient Relationship to Insured Coverage Start Date Coverage End Date [facility] [employer] [address] [place] [address] [id number] Mitzi Macias Self - patient is the [...] (hyperlipidemia) E78.5 Elevated carbon dioxide level R79.81 assisted (current) use of inhaled stero ids Z79.51 Anxiety and depression F41.8 GERD (gastroesophageal reflux disease) K 21.9 Surgical History Surgery Date(Month/Year) toe surgery cholecystectomy hysterectomy Hospitalization History Reason Date(Month/Year) Pneumonia -[facility] 08/31/2023 COPD [facility]acerbation[facility] 09/10/2023
--- OUTSIDE RECORDS SUMMARY | 2025-03-13 11:46 | XMS_ITS | CCD ---
Author Organization [facility] Care Team Providers Care Vp Rheumatology Name Role Phone James Benavidez Primary Care Provider JAMES BENAVIDEZ Primary Care Unavailable SHENDGE, VITHAL Admitting Unavailable SHENDGE, VITHAL Attending Unavailable AICHHOLZ, MCKAYLA Primary Care Unavailable AICHHOLZ, MCKAYLA Referring Unavailable AICHHOLZ, MCKAYLA J Primary Care Physician Tico, Stephanie Unavailable OLE RAMIREZ Attending Unavailable OLE RAMIREZ Consulting Unavailable AICHHOLZ, CAR RENTAL AGENT MCKAYLA Primary Care Unavailable OLE RAMIREZ Admitting Unavailable ANTONY SHRESTHA Consulting Unavailable ALONDRA ., UMBERTO Admitting Unavailable ALONDRA ., UMBERTO Attending Unavailable AICHHOLZ, CAR RENTAL AGENT MCKAYLA Primary Care Unavailable AFSANEH Loera, DR BOLANOS Consulting Unavailable MARYANNE POWER Consulting Unavailable GLENN KERR Consulting Unavailable YOMAIRA KERR Consulting Unavailable HATTIE GOFF Consulting Unavailable ALONDRA ., UMBERTO Consulting Unavailable TICO, STEPHANIE Attending Unavailable TICO, STEPHANIE Consulting Unavailable AICHHOLZ, CAR RENTAL AGENT MCKAYLA Primary Care Unavailable TICO, STEPHANIE Admitting Unavailable REGLA ., DR DUMONT Admitting Unavailable AICHHOLZ, CAR RENTAL AGENT MCKAYLA Primary Care Unavailable REGLA ., DR DUMONT Attending Unavailable ARAUZ ., DR DUMONT Consulting Unavailable COLLIN HUERTAS Consulting Unavailable CECILIA KAUFMAN Admitting Unavailable CECILIA KAUFMAN Attending Unavailable AICHHOLZ, CAR RENTAL AGENT MCKAYLA Primary Care Unavailable RAFAEL GONGORA Attending Unavailable RAFAEL GONGORA Admitting Unavailable AICHHOLZ, CAR RENTAL AGENT MCKAYLA Primary Care Unavailable AICHHOLZ, CAR RENTAL AGENT MCKAYLA Admitting Unavailable AICHHOLZ, CAR RENTAL AGENT MCKAYLA Primary Care Unavailable AICHHOLZ, CAR RENTAL AGENT MCKAYLA Attending Unavailable AICHHOLZ, CAR RENTAL AGENT MCKAYLA Consulting Unavailable LAKSHMIPATHY ., NARENDRANATH Attending Anette vailable LAKSHMIPATHY ., NARENDRANATH Consulting Anette vailable LAKSHMIPATHY ., NARENDRANATH Admitting Anette vailable AICHHOLZ, CAR RENTAL AGENT MCKAYLA Primary Care Unavailable VALENZUELA ., GIL Consulting Unavailable MORTENSEN ., DR CHAPARRO Aguillon Attending Unavailable MORTENSEN ., DR CHAPARRO Aguillon Admitting Unavailable AICHHOLZ, CAR RENTAL AGENT MCKAYLA Primary Care Unavailable VALENZUELA ., GIL Consulting Unavailable MORTENSEN ., DR CHAPARRO Aguillon Admitting Unavailable AICHHOLZ, CAR RENTAL AGENT MCKAYLA Primary Care Unavailable MORTENSEN ., DR CHAPARRO Aguillon Attending Unavailable HALKER ., SUBHASH Consulting Unavailable LAKSHMIPATHY ., NARENDRANATH Admitting Anette vailable LAKSHMIPATHY ., NARENDRANATH Attending Anette vailable AICHHOLZ, CAR RENTAL AGENT MCKAYLA Primary Care Unavailable MORTENSEN ., DR CHAPARRO Aguillon Attending Unavailable MORTENSEN ., DR CHAPARRO Aguillon Admitting Unavailable VALENZUELA ., GIL Consulting Unavailable AICHHOLZ, CAR RENTAL AGENT MCKAYLA Primary Care Unavailable VALENZUELA ., GIL Consulting Unavailable MORTENSEN ., DR CHAPARRO Aguillon Attending Unavailable MORTENSEN ., DR CHAPARRO Aguillon Admitting Unavailable AICHHOLZ, CAR RENTAL AGENT MCKAYLA Primary Care Unavailable HATTIE BRODERICK Attending Unavailable HATTIE BRODERICK Admitting Unavailable AICHHOLZ, CAR RENTAL AGENT MCKAYLA Primary Care Unavailable AICHHOLZ, CAR RENTAL AGENT MCKAYLA Admitting Unavailable AICHHOLZ, CAR RENTAL AGENT MCKAYLA Consulting Unavailable AICHHOLZ, CAR RENTAL AGENT MCKAYLA Primary Care Unavailable AICHHOLZ, CAR RENTAL AGENT MCKAYLA Attending Unavailable AICHHOLZ, CAR RENTAL AGENT MCKAYLA Primary Care Unavailable MISC, DR LESLIE Admitting Unavailable MISC, DR LESLIE Attending Unavailable MISC, DR LESLIE Consulting Unavailable DIAB ., MARIANO Admitting Unavailable DIAB ., MARIANO Attending Unavailable DIAB ., MARIANO Consulting Unavailable AICHHOLZ, CAR RENTAL AGENT MCKAYLA Primary Care Unavailable RASTEGAR, RICCO Consulting Unavailable AICHHOLZ, CAR RENTAL AGENT MCKAYLA Admitting Unavailable AICHHOLZ, CAR RENTAL AGENT MCKAYLA Primary Care Unavailable AICHHOLZ, CAR RENTAL AGENT MCKAYLA Attending Unavailable AICHHOLZ, CAR RENTAL AGENT MCKAYLA Consulting Unavailable DR PATRICIA VELOZ Consulting Unavailable TAMLYN ., CECILIA Attending Unavailable TAMLYN ., CECILIA Admitting Unavailable DR PATRICIA VELOZ Consulting Unavailable AICHHOLZ, CAR RENTAL AGENT MCKAYLA Primary Care Unavailable TAMLYN ., CECILIA Consulting Unavailable MORTENSEN ., DR CHAPARRO Aguillon Attending Unavailable FESTUS ., DR CHAPARRO Aguillon Consulting Unavailable FESTUS ., DR CHAPARRO Aguillon Admitting Unavailable AICHHOLZ, CAR RENTAL AGENT MCKAYLA Primary Care Unavailable HATTIE BRODERICK Attending Unavailable HATTIE BRODERICK Consulting Unavailable HATTIE BRODERICK Admitting Unavailable AICHHOLZ, CAR RENTAL AGENT MCKAYLA Primary Care Unavailable HATTIE BAUTISTA Unavailable AICHHOLZ, CAR RENTAL AGENT MCKAYLA Admitting Unavailable AICHHOLZ, CAR RENTAL AGENT MCKAYLA Attending Unavailable AICHHOLZ, CAR RENTAL AGENT MCKAYLA Consulting Unavailable AICHHOLZ, CAR RENTAL AGENT MCKAYLA Primary Care Unavailable Brennan PHIPPS, Ty Primary Care Provider Brennan PHIPPS, Ty Primary Care Provider Aichholz INSPECTOR PRODUCTION PLASTIC PARTS, Mckayla Unavailable Aichholz INSPECTOR [employer]ODUCTION [employer]IC [employer]S, Mckayla Unavailable Elbert ARAUZ Attending Unavailable SARAH VEGA Attending Unavailable AICHHOLZ, MCKAYLA Attending Unavailable RAIN SOUZA F Attending Unavailable AICHHOLZ, MCKAYLA Attending Unavailable AICHHOLZ, MCKAYLA Attending Unavailable AICHHOLZ, MCKAYLA Attending Unavailable LIBBYRAIN GIANG F Attending Unavailable AICHHOLZ, MCKAYLA Attending Unavailable RAIN SOUZA F Attending Unavailable LIBBY AHMAD F Referring Unavailable AICHHOLZ, MCKAYLA Attending Unavailable DAKOTAH BRIDGES Attending Unavailable AMI ORO Attending Unavailable Aichholz INSPECTOR [employer]ODUCTION [employer]IC PARTS, Mckayla Unavailable Adonay CHAU, Flynn Arzate Attending Unavailab lolita Urias DPM, Flynn Arzate Referring Unavailab le Bob METAL CABINET FINISHER-CAR RENTAL AGENT, Omero Lovell Attending Unav roberto Urias DPM, Flynn Arzate Attending Unavailab le Allergies Allergy Classification Reported Allergen(s) Allergy Type Date of Onset Reaction(s) Facility (1 source) No Known Medication Allergies; Translations: [No Known Medication Allergies] Propensity to adverse reactions (disorder) [facility] Repository Medications Current Medications Medication [...] Start Date: 02/06/22 Status: Ordered HYDROcodone-acet aminophen ([place]) 5-325 MG tablet 1 tablet 3 (three) times a day as needed for severe pain. Active take 1 tablet by vandana twice daily as needed [place] 5-325 MG 1 tablet as needed Orally [...] every week ergocalciferol (Vitamin D2) 1.25 MG (24737 UT) capsule Indications: Vitamin D deficiency, unspecified Take 1 capsule (1.25 mg) by mouth 1 (one) time per week 12 capsule 1 01/16/2025 04/10/2025 Active Start: 10-27-2024 End: 01-19-2025 take 1 capsule by mouth two times weekly ergocalciferol (Vitamin D2) 1.25 MG (94954 UT) capsule Indications: Vitamin D deficiency, unspecified Take 1 capsule (1.25 mg) by mouth 2 (two) times a week 24 capsule 1 10/27/2024 01/19/2025 Active Start: 04-06-2024 End: 10-27-2024 take 1 capsule by mouth every week ergocalciferol (Vitamin D2) 1.25 MG (51669 UT) capsule Indications: Vitamin D deficiency, unspecified [...] week 6 mL 1 02/27/2025 Active Start: 07-07-2024 inject 15 mg by [...] 02-06-2022 Chronic Other aftercare (1 source) Other senior care (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 therapy; Translations: [OTH CARE HOME CURRENT DRUG THERAPY] Onset: 12-05-2022 Episodic Other aftercare (1 source) intermission coordinator (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; Translations: [CARE HOME CURRENT USE OF ASPIRIN] Onset: 12-05-2022 Episodic Other aftercare (6 sources) Long-term current use of insulin; Translations: [[facility] (current) use of insulin] 05-27-2024 Episodic Other [...] extremity; Translations: [CHRN KEO HTN ULCR INFLAM LAEX LW EXT] Onset: 09-01-2022 Chronic Other diseases [...] 08-27-2024 08-27-2024 Episodic Other aftercare (3 sources) [facility] (current) use of insulin; Translations: [CARE HOME CURRENT USE OF INSULIN] Onset: 12-05-2022 Episodic Other aftercare (20 sources) Long-term current use of inhaled steroid; Translations: [[facility] (current) use of inhaled steroids] Onset: 08-27-2024 [...] Test Name Value Interpretation Reference Range Facility Podiatry Office/Clinic Noteo n 03-11-2025 Podiatry Office/Clinic Note The content of this note was generated by an artificial intelligence (AI) language dictation. The patient or guardian has given their consent for the use of AI technology during the visit to capture and process the conversation. The AI will assist in providing information and support throughout the discussion. The AI will not store personal or sensitive information beyond the scope of this session, and the purpose is solely to facilitate the conversation. The content of this note was generated by an artificial intelligence (AI) language dictation. The patient or guardian has given their consent for the use of AI technology during the visit to capture and process the conversation. The AI will assist in providing information and support throughout the discussion. The AI will not store personal or sensitive information beyond the scope of this session, and the purpose is solely to facilitate the conversation. History of Present Illness The content of this note was generated by an artificial intelligence (AI) language dictation. The patient or guardian has given their consent for the use of AI technology during the visit to capture and process the conversation. The AI will assist in providing information and support throughout the discussion. The AI will not store personal or sensitive information beyond the scope of this session, and the purpose is solely to facilitate the conversation. The patient is a 54-year-old female with a history of diabetes, COPD, and sleep apnea, presenting with a new right lower leg ulcer for evaluation and possible surgical intervention. Right Lower Leg Ulcer The patient reports a right lower leg ulcer involving the anterior and lateral aspects, present since June for over six months. She has a history of previous ulcers, including one on her toe that resolved without surgery, but states this is the first ulcer on this side of her leg. She reports not currently smoking. She attends wound care three times weekly (Sunday, Sunday, Sunday). Treatments have included various wraps (gauze, tila bandage, Coban II, tuba padded products finisher), Dakins solution, a 40-day course of antibiotics, and silver or copper-based dressings. She notes some improvement, including new skin growth and increased wound strength. She has not had grafts or surgery for this ulcer. She has undergone vascular evaluation since June, including blood flow studies that indicated possible decreased circulation, and has seen both vein and artery specialists, with no interventions recommended to date. X-rays performed today showed no evidence of infection, fracture, or foreign bodies. An echocardiogram was recently performed and was reported as normal. Her medical history includes diabetes (last hemoglobin A1c 7.2), COPD, and sleep apnea. She currently takes aspirin but is not on other blood thinners. The patient resides in [place]. Review of Systems Constitutional: Negative for signs of infection. Respiratory: Positive for COPD and sleep apnea. Cardiovascular: Negative for signs of blood clot. Neurological: Negative for signs of nerve damage. Musculoskeletal: Negative for signs of bleeding, swelling, soft tissue emphysema, soft tissue ossifications, radial lucencies or cortical disruptions of the tibia or fibula, acute fracture dislocations, foreign bodies, and increased soft tissue density. Ten point ROS completed as noted per HPI, all other systems are negative Physical Exam Vitals & Measurements HR: 86 (Peripheral) BP: 177/74 Integumentary: Right lower leg ulceration at the anterior and lateral aspects Hemosiderin deposits present Chronic venous stasis changes without signs of active infection Dermatological: Right anterior/lateral lower leg ulceration noted. Surrounding skin of ulceration has hyperkeratotic tissue forming with some undermining at the edge of the ulceration. Fibrogranular nature. Bilateral, all pedal nails thick and incurvated with subungual debris discolored dystrophic and crumbly. Negative probe to bone. Negative malodor Negative purulence Negative calor Negative erythema Dorsal right foot ulceration down to dermal tissue with some slough noted. No exposed bone purulence crepitus fluctuance malodor or erythema at this location. Left lower extremity no open wounds lesions or ulcerations noted. Skin is diffusely taut brawny indurated atrophic bilateral lower extremity with dorsal hair follicle growth absence noted bilateral. Skin is diffusely dry and flaky bilateral lower extremity. Hemosiderin deposits noted bilateral lower extremity. Vascular: Pulses are nonpalpable bilateral at Dorsalis Pedis and weakly palpable at posterior Tibial arteries. Biphasic to posterior tibial pulses and dorsalis pedis pulses bilateral. Capillary fill time less than 3 seconds bilateral at hallux when leg elevated. Skin temp cool to warmer proximal to distal bilateral. Varicosities are present bilateral to their lower extremities Positi (more content not included)... Normal [facility] Comment on above: Order Comment: Destiny ocampo Attachment [id number] Can be viewed in source system XR Tibia/Fibula Righton 09 XR Tibia/Fibula Right 2 views right tib-fib demonstrate: Ankle mortise is well aligned and maintained. No increase in medial clear space. No increase in Tibia/fibular space noted. No soft tissue emphysema noted. No soft tissue calcifications noted. No radiolucencies or cortical disruptions of the tibia or fibula noted. Diffuse increase in soft tissue volume noted. No increase in soft tissue density noted. No acute fracture dislocations noted. No foreign bodies noted. Final Signed by: Flynn Urias DPM Signed (Electronic Signature): 03/11/2025 1:01 pm Transcribed DT/TM: 03/11/2025 1:01 (If Report Is Signed, Electronically Signed in Other Vendor System) Normal [facility] Orders Onlyon 01-30-2025 Orders Only [id number] Mitzi Macias 1970 F Date Provider Department Center 01/30/2025 [id number], HISTORICAL [facility] Family History Problem Relation Age of Onset Heart attack Paternal Grandmother Family Status - Relation Status Age at Mother Father Paternal Grandmother Normal [facility] CA ECHO DOPPLER COMPLETEon 0 01-29-2025 [place] [address] Cardiology Report Signed Patient: MITZI MACIAS MR#: [id number] : 1970 Acct:[id number] Age/Sex: 54 / F ADM Date: 01/29/25 Loc: CARD Attending Dr: AMI ORO APRN Ordering Physician: AMI ORO APRN Date of Service: 01/29/25 Procedure(s): CA echo doppler complete Accession Number(s): [id number] cc: Mckayla Blas INSPECTOR PRODUCTION PLASTIC PARTS; AMI ORO APRN Patient Name: MITZI MACIAS MR#: [id number] : 1970 Exam Date: 01/29/2025 Ordering Doctor: AMI ORO CAR RENTAL AGENT ECHOCARDIOGRAM REPORT PROCEDURE: CA ECHO DOPPLER COMPLETE [...] HERRERA Signed By: 01/29/251839 DD/ 39 TD/TT: Hydroelectric Machinery Mechanic: [facility] Radiology, Radiologist, MD - 01/29/2025 [place] [address] Cardiology Report Signed Patient: MITZI MACIAS MR#: [id number] : 1970 Acct:[id number] Age/Sex: 54 / F ADM Date: 01/29/25 Loc: CARD Attending Dr: AMI ORO APRN Ordering Physician: AMI ORO APRN Date of Service: 01/29/25 Procedure(s): CA echo doppler complete Accession Number(s): [id number] cc: Mckayla Blas INSPECTOR PRODUCTION P[employer]IC PARTS; AMI ORO APRN Patient Name: MITZI MACIAS MR#: [id number] : 1970 Exam Date: 01/29/2025 Ordering Doctor: [...] HERRERA Signed By: 01/29/251839 DD/ 39 TD/TT: Hydroelectric Machinery Mechanic: [facility] Radiology Study observation (narrative) [facility] CA ECHO DOPPLER COMPLETEOrde red By: Radiologist Radiology on 01-29-2025 [facility] Work Phone: Glucose (Bld) [Mass/Vol]on 0 01-29-2025 Glucose Blood, POC 121 mg/dL [facility] Laboratory - Hematology and Cell countson 01-29-2025 HbA1c (Bld) [Mass fraction] 8.4 % [facility] No Panel Informationon 01-29 Interpretation and review of laboratory results Abnormal [facility] Office Visiton 01-06-2025 Follow-up visit [id number] Mitzi Macias 1970 F Date Provider Department Center 01/06/2025 Mikaela-PREETHI, AMI CARD [facility] Family History Problem Relation Age of Onset Heart attack Paternal Grandmother Family Status - Relation Status Age at Mother Father Paternal Grandmother Level of Service:52172 DC OFFICE/OUTPATIENT ESTABLISHED MOD MDM 30 MIN Reason for Visit and Comments: Congestive Heart Failure [127] Hypertension [871342] Hyperlipidemia [182] Normal [facility] 36on 10-21-2024 36 Regarding lab results from 10/08/2024: MD Mickie Merritt MA Lipids, ALT AST, and BMP are normal. HbA1c was not performed. Continue current management. LM on patient's VM. Normal [facility] Glucose (Bld) [Mass/Vol]Orde red By: Mica Sauceda on 10-08-2024 Glucose Blood, POC 97 mg/dL [facility] Laboratory - Hematology and Cell countson 10-08-2024 HbA1c (Bld) [Mass fraction] 7.4 % [facility] No Panel InformationOrdered By: Mica Sauceda on 10-08-2024 [facility]H UA (CLEAN/CATCH) MICROSC OPIC IF INDICATEon 10-08-2024 BILIRUBIN URINE Negative NEGATIVE [facility] BLOOD URINE Negative NEGATIVE [facility] Clarity (U) CLEAR CLEAR [facility] Color (U) YELLOW YELLOW [facility] GLUCOSE URINE UA Negative NEGATIVE mg/dL [facility] Interpretation and review of laboratory results Abnormal [facility] Ketones Ql (U) Negative NEGATIVE mg/dL [facility] Leukocyte esterase Test strip Ql (U) Negative NEGATIVE [facility] NITRITE URINE Negative NEGATIVE [facility] pH (U) 5.5 [pH] 5.0 - 9.0 [facility] Protein (U) [Mass/Vol] 30 mg/dL Abnormal NEG/TRACE NO [facility] SPECIFIC GRAVITY URINE >=1.030 Abnormal 1.005 - 1.025 [facility] URINE MICROSCOPIC INDICATED YES [facility] UROBILINOGEN URINE 1.0 EU/dL 0.2 - 1.0 EU/dL [facility] ALL CBC WITH AUTO DIFFon BASOPHILS ABSOLUTE AUTO 0.1 [facility] Basophils/100 WBC (Bld) 0.5 % 0.2 - 2.0 % [facility] Eosinophils/100 WBC (Bld) 1.9 % 0.9 - 7.0 % [facility] Erythrocyte distribution width (RBC) [Ratio] 14.6 % 11.0 - 15.0 % [facility] Hematocrit (Bld) [Volume fraction] 50.9 % High 36.0 - 48.0 % [facility] Hemoglobin (Bld) [Mass/Vol] 16.1 g/dL High 12.0 - 16.0 g/dL [facility] IMMATURE GRANULOCYTES ABS AUTO 0.04 High [facility] Immature granulocytes/100 WBC (Bld) 0.3 % 0.0 - 0.5 % [facility] Interpretation and review of laboratory results Abnormal [facility] LYMPHOCYTES ABSOLUTE AUTO 3.2 [facility] Lymphocytes/100 WBC (Bld) 25.1 % 20.5 - 60.0 % [facility] MCH (RBC) [Entitic mass] 29.2 pg 26.7 - 34.0 pg [facility] MCHC (RBC) [Mass/Vol] 31.6 g/dL 29.9 - 35.2 g/dL [facility] MCV (RBC) [Entitic vol] 92.2 fL 81.0 - 99.0 fL [facility] MONOCYTES ABSOLUTE AUTO 0.7 [facility] Monocytes/100 WBC (Bld) 5.2 % 1.7 - 12.0 % [facility] NEUTROPHILS ABSOLUTE AUTO 8.6 High [facility] Neutrophils/100 WBC (Bld) 67 % 43.0 - 75.0 % [facility] Platelet mean volume (Bld) [Entitic vol] 12.8 fL 9.5 - 13.5 fL [facility] TBH EO # 0.2 [facility] TB PLT 122 Low [facility] TB RBC 5.52 High [facility] TBH WBC 12.8 High [facility] Office Visiton 08-08-2024 Follow-up visit [id number] Mitzi Macias 1970 F Date Provider Department Center 08/08/2024 [id number] [facility] Family History Problem Relation Age of Onset Heart attack Paternal Grandmother Family Status - Relation Status Age at Paternal Grandmother Level of Service:17672 DC OFFICE/OUTPATIENT ESTABLISHED MOD MDM 30 MIN Reason for Visit and Comments: Congestive Heart Failure [127] - Denies chest pain, SOB, and palpitations. Hypertension [186861] Hyperlipidemia [182] LVH [Other] Edema [[id number]] - Denies worsening edema. She sees wound care for RLE ulcer. She was seeing the vein specialists here in town but they are moving to [place] in a few weeks. Normal [facility] Glucose (Bld) [Mass/Vol]Orde red By: Mica Sauceda on 05-27-2024 Glucose Blood, POC 158 mg/dL [facility] Laboratory - Hematology and Cell countson 05-27-2024 HbA1c (Bld) [Mass fraction] 9.2 % [facility] No Panel InformationOrdered By: Mica Sauceda on 05-27-2024 [facility] CREATININEon 05-12-2024 Creatinine [Mass/Vol] 0.92 mg/dL 0.55 - 1.02 mg/dL [facility] GFR/1.73 sq M.predicted CKD-EPI (S/P/Bld) [Vol rate/Area] >60 >=60 mL/min/1.73m 2 [facility] EGFR-NON AF IRAQI >60 >=60 mL/min/1.73m 2 [facility] CBC AUTO DIFFon 12-06-2022 BASO # 0.0 103/ul Normal 0.0-0.1 [facility] Comment on above: Performed By: #### C BC #### [facility] [address] [address] [address] Ashlie Hills Basophils/100 WBC (Bld) 0.1 % Critically low 0.2-2.0 [facility] Comment on above: Performed By: #### C BC #### [facility] [address] [place], [place] [address] Dr. Ashlie Hills EO # 0.0 103/ul Normal 0.0-0.7 [facility] Comment on above: Performed By: #### C BC #### [facility] [address] [address] [address] Ashlie Hills Eosinophils/100 WBC (Bld) 0.0 % Critically low 0.9-7.0 [facility] Comment on above: Performed By: #### C BC #### [facility] [address] [place] [address] Dr. Ashlie Hills Erythrocyte distribution width (RBC) [Ratio] 14.9 % Normal 11.0-15.0 [facility] Comment on above: Performed By: #### C BC #### [facility] [address] [place] [address] Dr. Ashlie Hills Hematocrit (Bld) [Volume fraction] 46.2 % Normal 36.0-48.0 [facility] Comment on above: Performed By: #### C BC #### [facility] [address] [place] [address] Dr. Ashlie Hills Hemoglobin (Bld) [Mass/Vol] 14.7 g/dL Normal 12.0-16.0 [facility] Comment on above: Performed By: #### C BC #### [facility] [address] [place] [address] Dr. Ashlie Hills IG # 0.06 10e3/ul Critically high 0.00-0.03 [facility] Comment on above: Performed By: #### C BC #### [facility] [address] [place] [address] Dr. Ashlie Hills IG % 0.4 % Normal 0.0-0.5 [facility] Comment on above: Performed By: #### C BC #### [facility] [address] [place] [address] Dr. Ashlie Hills LYMPH # 1.3 103/ul Normal 1.2-3.8 [facility] Comment on above: Performed By: #### C BC #### [facility] [address] [place] [address] Dr. Ashlie Hills Lymphocytes/100 WBC (Bld) 9.4 % Critically low 20.5-60.0 [facility] Comment on above: Performed By: #### C BC #### [facility] [address] [place] [address] Dr. Ashlie Hills MANUAL DIFF REQ NO Normal [facility] Comment on above: Performed By: #### C BC #### [facility] [address] [place] [address] Dr. Ashlie Hills MCH (RBC) [Entitic mass] 28.4 pg Normal 26.7-34.0 [facility] Comment on above: Performed By: #### C BC #### [facility] [address] [place] [address] Dr. Ashlie Hills MCHC (RBC) [Mass/Vol] 31.8 g/dL Normal 29.9-35.2 [facility] Comment on above: Performed By: #### C BC #### [facility] [address] [place] [address] Dr. Ashlie Hills MCV (RBC) [Entitic vol] 89.4 fL Normal 81.0-99.0 [facility] Comment on above: Performed By: #### C BC #### [facility] [address] [place] [address] Dr. Ashlie Hills MONO # 0.5 103/ul Normal 0.3-0.8 [facility] Comment on above: Performed By: #### C BC #### [facility] [address] [place] [address] Dr. Ashlie Hills Monocytes/100 WBC (Bld) 3.4 % Normal 1.7-12.0 [facility] Comment on above: Performed By: #### C BC #### [facility] [address] [place] [address] Dr. Ashlie Hills NEUT # 11.8 103/ul Critically high 1.4-6.5 [facility] Comment on above: Performed By: #### C BC #### [facility] [address] [place] [address] Dr. Ashlie Hills Neutrophils/100 WBC (Bld) 86.7 % Critically high 43.0-75.0 [facility] Comment on above: Performed By: #### C BC #### [facility] [address] [address] [address] Ashlie Hills Platelet mean volume (Bld) [Entitic vol] 12.6 fL Normal 9.5-13.5 [facility] Comment on above: Performed By: #### C BC #### [facility] [address] [place] [address] Dr. Ashlie Hills PLT 133 103/ul Critically low 150-450 [facility] Comment on above: Performed By: #### C BC #### [facility] [address] [place] [address] Dr. Ashlie Hills RBC 5.17 106/ul Normal 4.20-5.40 [facility] Comment on above: Performed By: #### C BC #### [facility] [address] [place] [address] Dr. Ashlie Hills WBC 13.6 103/ul Critically high 4.0-11.0 [facility] Comment on above: Performed By: #### C BC #### [facility] [address] [place] [address] Dr. Ashlie Hills MAGNESIUMon 12-06-2022 Magnesium [Mass/Vol] 2.2 mg/dL Normal 1.8-2.4 [facility] Comment on above: Performed By: #### I NFLUAB #### [facility] [address] [place] [address] Dr. Ashlie Hills POINT OF CARE GLUCOSEon 11-08 Glucose [Mass/Vol] 340 mg/dL Critically high 74-106 [facility] Comment on above: Performed By: #### P OCGLUC #### [facility] [address] [place] [address] Dr. Ashlie Hills Glucose [Mass/Vol] 276 mg/dL Critically high 74-106 [facility] Comment on above: Performed By: #### C BC #### [facility] [address] [place] [address] Dr. Ashlie Hills Glucose [Mass/Vol] 333 mg/dL Critically high -106 [facility] Comment on above: Performed By: #### C BC #### [facility] [address] [address] [address] Ashlie Hills PROF CHEM 8 (BAS METB)on Anion gap [Moles/Vol] 10.9 mmol/L Normal Th [facility] Comment on above: Performed By: #### I NFLUAB #### [facility] [address] [place] [address] Dr. Ashlie Hills Calcium [Mass/Vol] 9.3 mg/dL Normal 8.5-10.1 [facility] Comment on above: Performed By: #### I NFLUAB #### [facility] [address] [address] [address] Ashlie Hills Chloride [Moles/Vol] 103 mmol/L Normal 98-107 [facility] Comment on above: Performed By: #### I NFLUAB #### [facility] [address] [place] [address] Dr. Ashlie Hills CO2 [Moles/Vol] 31.2 mmol/L Normal 21.0-32.0 [facility] Comment on above: Performed By: #### I NFLUAB #### [facility] [address] [place] [address] Dr. Ashlie Hills Creatinine [Mass/Vol] 0.96 mg/dL Normal 0.55-1.02 [facility] Comment on above: Performed By: #### I NFLUAB #### [facility] [address] [place] [address] Dr. Ashlie Hills EGFR-AF IRAQI >60 Normal >=60 [facility] Comment on above: Performed By: #### I NFLUAB #### [facility] [address] [place] [address] Dr. Ashlie Hills EGFR-NON AF IRAQI >60 Normal >=60 [facility] Comment on above: Performed By: #### I NFLUAB #### [facility] [address] [place] [address] Dr. Ashlie Hills Glucose [Mass/Vol] 288 mg/dL Critically high 74-106 [facility] Comment on above: Performed By: #### I NFLUAB #### [facility] [address] [address] [address] Ashlie Hills Potassium [Moles/Vol] 5.1 mmol/L Normal 3.5-5.1 [facility] Comment on above: Performed By: #### I NFLUAB #### [facility] [address] [place] [address] Dr. Ashlie Hills Sodium [Moles/Vol] 140 mmol/L Normal 136-145 [facility] Comment on above: Performed By: #### I NFLUAB #### [facility] [address] [place] [address] Dr. Ashlie Hills Urea nitrogen [Mass/Vol] 30.0 mg/dL Critically high 7.0-18.0 [facility] Comment on above: Performed By: #### I NFLUAB #### [facility] [address] [place] [address] Dr. Ashlie Hills Urea nitrogen/Creatinine [Mass ratio] 31.2 mg/mg Normal [facility] Comment on above: Performed By: #### I NFLUAB #### [facility] [address] [place] [address] Dr. Ashlie Hills CBC AUTO DIFFon 12-05-2022 BASO # 0.0 103/ul Normal 0.0-0.1 [facility] Comment on above: Performed By: #### C BC #### [facility] [address] [place] [address] Dr. Ashlie Hills Basophils/100 WBC (Bld) 0.4 % Normal 0.2-2.0 [facility] Comment on above: Performed By: #### C BC #### [facility] [address] [place] [address] Dr. Ashlie Hills EO # 0.0 103/ul Normal 0.0-0.7 [facility] Comment on above: Performed By: #### C BC #### [facility] [address] [place] [address] Dr. Ashlie Hills Eosinophils/100 WBC (Bld) 0.0 % Critically low 0.9-7.0 [facility] Comment on above: Performed By: #### C BC #### [facility] [address] [place] [address] Dr. Ashlie Hills Erythrocyte distribution width (RBC) [Ratio] 14.8 % Normal 11.0-15.0 [facility] Comment on above: Performed By: #### C BC #### [facility] [address] [place] [address] Dr. Ashlie Hills Hematocrit (Bld) [Volume fraction] 49.9 % Critically high 36.0-48.0 [facility] Comment on above: Performed By: #### C BC #### [facility] [address] [place] [address] Dr. Ashlie Hills Hemoglobin (Bld) [Mass/Vol] 15.7 g/dL Normal 12.0-16.0 [facility] Comment on above: Performed By: #### C BC #### [facility] [address] [place] [address] Dr. Ashlie Hills IG # 0.04 10e3/ul Critically high 0.00-0.03 [facility] Comment on above: Performed By: #### C BC #### [facility] [address] [place] [address] Dr. Ashlie Hills IG % 0.5 % Normal 0.0-0.5 [facility] Comment on above: Performed By: #### C BC #### [facility] [address] [place] [address] Dr. Ashlie Hills LYMPH # 1.1 103/ul Critically low 1.2-3.8 [facility] Comment on above: Performed By: #### C BC #### [facility] [address] [place] [address] Dr. Ashlie Hills Lymphocytes/100 WBC (Bld) 12.7 % Critically low 20.5-60.0 [facility] Comment on above: Performed By: #### C BC #### [facility] [address] [place] [address] Dr. Ashlie Hills MANUAL DIFF REQ NO Normal [facility] Comment on above: Performed By: #### C BC #### [facility] [address] [address] [address] Ashlie Hills MCH (RBC) [Entitic mass] 28.1 pg Normal 26.7-34.0 [facility] Comment on above: Performed By: #### C BC #### [facility] [address] [address] [address] Ashlie Hills MCHC (RBC) [Mass/Vol] 31.5 g/dL Normal 29.9-35.2 [facility] Comment on above: Performed By: #### C BC #### [facility] [address] [address] [address] Ashlie Hills MCV (RBC) [Entitic vol] 89.3 fL Normal 81.0-99.0 [facility] Comment on above: Performed By: #### C BC #### [facility] [address] [place] [address] Dr. Ashlie Hills MONO # 0.1 103/ul Critically low 0.3-0.8 [facility] Comment on above: Performed By: #### C BC #### [facility] [address] [address] [address] Ashlie Hills Monocytes/100 WBC (Bld) 1.3 % Critically low 1.7-12.0 [facility] Comment on above: Performed By: #### C BC #### [facility] [address] [address] [address] Ashlie Hills NEUT # 7.2 103/ul Critically high 1.4-6.5 [facility] Comment on above: Performed By: #### C BC #### [facility] [address] [address] [address] Ashlie Hills Neutrophils/100 WBC (Bld) 85.1 % Critically high 43.0-75.0 [facility] Comment on above: Performed By: #### C BC #### [facility] [address] [place] [address] Dr. Ashlie Hills Platelet mean volume (Bld) [Entitic vol] 12.2 fL Normal 9.5-13.5 [facility] Comment on above: Performed By: #### C BC #### [facility] [address] [place], [place] [address] Dr. Ashlie Hills PLT 116 103/ul Critically low 150-450 [facility] Comment on above: Performed By: #### C BC #### [facility] [address] [place], [place] [address] Dr. Ashlie Hills RBC 5.59 106/ul Critically high 4.20-5.40 [facility] Comment on above: Performed By: #### C BC #### [facility] [address] [place], [place] [address] Dr. Ashlie Hills WBC 8.5 103/ul Normal 4.0-11.0 [facility] Comment on above: Performed By: #### C BC #### [facility] [address] [place], [place] [address] Dr. Ashlie Hills CTA CHEST WO W [...] by: HATTIE GOFF Date: 2022-12-05 01:52 Normal [facility] MAGNESIUMon 12-05-2022 Magnesium [Mass/Vol] 2.1 mg/dL Normal 1.8-2.4 [facility] Comment on above: Performed By: #### P OCGLUC #### [facility] [address] [address] [address] Ashlie Hills POINT OF CARE GLUCOSEon 11-08 Glucose [Mass/Vol] 293 mg/dL Critically high [address] [place] [address] Comment on above: Performed By: #### P OCGLUC #### [facility] [address] [address] [address] Ashlie Hills Glucose [Mass/Vol] 269 mg/dL Critically high [address] [place] [address] Comment on above: Performed By: #### P OCGLUC #### [facility] [address] [address] [address] Ashlie Hills Glucose [Mass/Vol] 223 mg/dL Critically high [address] [place] [address] Comment on above: Performed By: #### C VDAGS #### [facility] [address] [address] [address] Ashlie Hills PROF CHEM 8 (BAS METB)on Anion gap [Moles/Vol] 11.6 mmol/L Normal [facility] Comment on above: Performed By: #### P OCGLUC #### [facility] [address] [address] [address] Ashlie Hills Calcium [Mass/Vol] 9.2 mg/dL Normal 8.5-10.1 [facility] Comment on above: Performed By: #### P OCGLUC #### [facility] [address] [address] [address] Ashlie Hills Chloride [Moles/Vol] 102 mmol/L Normal 98-107 [facility] Comment on above: Performed By: #### P OCGLUC #### [facility] [address] [address] [address] Ashlie Hills CO2 [Moles/Vol] 28.7 mmol/L Normal 21.0-32.0 [facility] Comment on above: Performed By: #### P OCGLUC #### [facility] [address] [address] [address] Ashlie Hills Creatinine [Mass/Vol] 1.04 mg/dL Critically high 0.55-1.02 [facility] Comment on above: Performed By: #### P OCGLUC #### [facility] [address] [address] [address] Ashlie Hills EGFR-AF IRAQI >60 Normal >=60 [facility] Comment on above: Performed By: #### P OCGLUC #### [facility] [address] [address] [address] Ashlie Hills EGFR-NON AF IRAQI 56 mL/min/1.73m2 Critically low >=60 [facility] Comment on above: Performed By: #### P OCGLUC #### [facility] [address] [address] [address] Ashlie Hills Glucose [Mass/Vol] 231 mg/dL Critically high 74-106 [facility] Comment on above: Performed By: #### P OCGLUC #### [facility] [address] [address] [address] Ashlie Hills Potassium [Moles/Vol] 4.3 mmol/L Normal 3.5-5.1 [facility] Comment on above: Performed By: #### P OCGLUC #### [facility] [address] [address] [address] Ashlie Hills Sodium [Moles/Vol] 138 mmol/L Normal 136-145 [facility] Comment on above: Performed By: #### P OCGLUC #### [facility] [address] [address] [address] Ashlie Hills Urea nitrogen [Mass/Vol] 17.0 mg/dL Normal 7.0-18.0 [facility] Comment on above: Performed By: #### P OCGLUC #### [facility] [address] [place] [address] Dr. Ashlie iHlls Urea nitrogen/Creatinine [Mass ratio] 16.3 mg/mg Normal [facility] Comment on above: Performed By: #### P OCGLUC #### [facility] [address] [place] [address] Dr. Aslhie Hills RESPIRATORY PANEL PLUSon Adenovirus Not detected Normal NOT DETECTED [facility] Comment on above: Performed By: #### C VDAGS #### [facility] [address] [place] [address] Dr. Ashlie Shaffer. Parapertusis Not detected Normal NOT DETECTED [facility] Comment on above: Performed By: #### C VDAGS #### [facility] [address] [place] [address] Dr. Ashlie Shaffer. Pertussis Not detected Normal NOT DETECTED [facility] Comment on above: Performed By: #### C VDAGS #### [facility] [address] [place] [address] Dr. Ashlie Hills Chlamydia Pneumoniae Not detected Normal NOT DETECTED [facility] Comment on above: Performed By: #### C VDAGS #### [facility] [address] [place] [address] Dr. Ashlie Hills Coronavirus 229E Not detected Normal NOT DETECTED [facility] Comment on above: Performed By: #### C VDAGS #### [facility] [address] [place] [address] Dr. Ashlie Hills Coronavirus HKU1 Not detected Normal NOT DETECTED [facility] Comment on above: Performed By: #### C VDAGS #### [facility] [address] [place] [address] Dr. Ashlie Hills Coronavirus NL63 Not detected Normal NOT DETECTED [facility] Comment on above: Performed By: #### C VDAGS #### [facility] [address] [place] [address] Dr. Ashlie Hills Coronavirus OC43 Not detected Normal NOT DETECTED [facility] Comment on above: Performed By: #### C VDAGS #### [facility] [address] [address] [address] Ashlie Hills Influenza A H1 Not detected Normal NOT DETECTED [facility] Comment on above: Performed By: #### C VDAGS #### [facility] [address] [address] [address] Ashlie Hills Influenza A H1 2009 Not detected Normal NOT DETECTED [facility] Comment on above: Performed By: #### C VDAGS #### [facility] [address] [address] [address] Ashlie Hills Influenza A H3 Not detected Normal NOT DETECTED [facility] Comment on above: Performed By: #### C VDAGS #### [facility] [address] [place] [address] Dr. Ashlie Hills Influenza B Not detected Normal NOT DETECTED [facility] Comment on above: Performed By: #### C VDAGS #### [facility] [address] [place] [address] Dr. Ashlie Hills Metapneumovirus Not detected Normal NOT DETECTED [facility] Comment on above: Performed By: #### C VDAGS #### [facility] [address] [place] [address] Dr. Ashlie Hills Mycoplas. Pneumoniae Not detected Normal NOT DETECTED [facility] Comment on above: Performed By: #### C VDAGS #### [facility] [address] [address] [address] Ashlie Hills Parainfluenza 1 Not detected Normal NOT DETECTED [facility] Comment on above: Performed By: #### C VDAGS #### [facility] [address] [address] [address] Ashlie Hills Parainfluenza 2 Not detected Normal NOT DETECTED [facility] Comment on above: Performed By: #### C VDAGS #### [facility] [address] [address] [address] Ashlie Hills Parainfluenza 3 Detected Abnormal NOT DETECTED [facility] Comment on above: Performed By: #### C VDAGS #### [facility] [address] [place] [address] Dr. Ashlie Hills Parainfluenza 4 Not detected Normal NOT DETECTED [facility] Comment on above: Performed By: #### C VDAGS #### [facility] [address] [place] [address] Dr. Ashlie Hills Rhino/Enterovirus Not detected Normal NOT DETECTED [facility] Comment on above: Performed By: #### C VDAGS #### [facility] [address] [place] [address] Dr. Ashlie Hills RP2 Header 1 RESPIRATORY PANEL: VIRUSES Normal [facility] Comment on above: Performed By: #### C VDAGS #### [facility] [address] [place] [address] Dr. Ashlie Hills RP2 Header 2 RESPIRATORY PANEL: BACTERIA Normal [facility] Comment on above: Performed By: #### C VDAGS #### [facility] [address] [place] [address] Dr. Ashlie Hills RSV Not detected Normal NOT DETECTED [facility] Comment on above: Performed By: #### C VDAGS #### [facility] [address] [place] [address] Dr. Ashlie Hills SARS-CoV-2 (COVID-19) RNA MADDY+probe Ql (Unsp spec) Not detected Normal NOT DETECTED [facility] Comment on above: Performed By: #### C VDAGS #### [facility] [address] [place] [address] Dr. Ashlie Hills XR CHEST 1 Von [...] by: MARYANNE POWER Date: 2022-12-04 22:23 Normal [facility] BLOOD GASES BTYon 12-04-2022 02 MODE ROOM AIR Normal [facility] Comment on above: Performed By: #### C BC #### [facility] [address] [place] [address] Dr. Ashlie Hills ALLENS TEST Positive Normal [facility] Comment on above: Performed By: #### C BC #### [facility] [address] [place] [address] Dr. Ashlie Hills Base excess Calc (Bld) [Moles/Vol] 5.4 mmol/L Critically high -2.0-2.0 [facility] Comment on above: Performed By: #### C BC #### [facility] [address] [address] [address] Ashlie Hills BIPAP PRESSURE [facility] Comment on above: Performed By: #### C BC #### [facility] [address] [place] [address] Dr. Ashlie Hills CPAP [facility] Comment on above: Performed By: #### C BC #### [facility] [address] [place] [address] Dr. Ashlie Hills FIO2 [facility] Comment on above: Performed By: #### C BC #### [facility] [address] [address] [address] Ashlie Hills HCO3 (Bld) [Moles/Vol] 30.8 mmol/L Critically high 22.0-26 .0 [facility] Comment on above: Performed By: #### C BC #### [facility] [address] [place] [address] Dr. Ashlie Hills LPM [facility] Comment on above: Performed By: #### C BC #### [facility] [address] [address] [address] Ashlie Hills MINUTE VOLUME Normal [facility] Comment on above: Performed By: #### C BC #### [facility] [address] [place] [address] Dr. Ashlie Hills Oxygen (Bld) [Partial pressure] 46.3 mm[Hg] Critically low 80.0-100.0 [facility] Comment on above: Performed By: #### C BC #### [facility] [address] [address] [address] Ashlie Hills Oxygen saturation in Blood 83.9 % Critically low 95.0-100.0 [facility] Comment on above: Performed By: #### C BC #### [facility] [address] [address] [address] Ashlie Hills PCO2 54.2 mmHg Critically high 35.0-45.0 [facility] Comment on above: Performed By: #### C BC #### [facility] [address] [address] [address] Ashlie Hills [facility] Comment on above: Performed By: #### C BC #### [facility] [address] [place] [address] Dr. Ashlie Hills pH (Bld) 7.363 [pH] Normal 7.350-7.450 [facility] Comment on above: Performed By: #### C BC #### [facility] [address] [place] [address] Dr. Ashlie Hills [facility] Comment on above: Performed By: #### C BC #### [facility] [address] [address] [address] Ashlie Hills PS [facility] Comment on above: Performed By: #### C BC #### [facility] [address] [place] [address] Dr. Ashlie Hills PUNCTURE SITE LR [facility] Comment on above: Performed By: #### C BC #### [facility] [address] [place] [address] Dr. Ashlie Hills RATE [facility] Comment on above: Performed By: #### C BC #### [facility] [address] [place] [address] Dr. Ashlie Hills VENT MODE [facility] Comment on above: Performed By: #### C BC #### [facility] [address] [place] [address] Dr. Ashlie Hills [facility] Comment on above: Performed By: #### C BC #### [facility] [address] [place] [address] Dr. Ashlie Hills BNPon 12-04-2022 Natriuretic peptide B (Bld) [Mass/Vol] 76.0 pg/mL Normal <=900.0 [facility] Comment on above: Performed By: #### P OCGLUC #### [facility] [address] [place] [address] Dr. Ashlie Hills CBC AUTO DIFFon 12-04-2022 BASO # 0.1 103/ul Normal 0.0-0.1 [facility] Comment on above: Performed By: #### C BC #### [facility] [address] [place] [address] Dr. Ashlie Hills Basophils/100 WBC (Bld) 0.6 % Normal 0.2-2.0 [facility] Comment on above: Performed By: #### C BC #### [facility] [address] [place] [address] Dr. Ashlie Hills EO # 0.2 103/ul Normal 0.0-0.7 [facility] Comment on above: Performed By: #### C BC #### [facility] [address] [place] [address] Dr. Ashlie Hills Eosinophils/100 WBC (Bld) 1.9 % Normal 0.9-7.0 [facility] Comment on above: Performed By: #### C BC #### [facility] [address] [place] [address] Dr. Ashlie Hills Erythrocyte distribution width (RBC) [Ratio] 15.0 % Normal 11.0-15.0 [facility] Comment on above: Performed By: #### C BC #### [facility] [address] [place] [address] Dr. Ashlie Hills Hematocrit (Bld) [Volume fraction] 49.1 % Critically high 36.0-48.0 [facility] Comment on above: Performed By: #### C BC #### [facility] [address] [place] [address] Dr. Ashlie Hills Hemoglobin (Bld) [Mass/Vol] 15.6 g/dL Normal 12.0-16.0 [facility] Comment on above: Performed By: #### C BC #### [facility] [address] [place] [address] Dr. Ashlie Hills IG # 0.02 10e3/ul Normal 0.00-0.03 [facility] Comment on above: Performed By: #### C BC #### [facility] [address] [place] [address] Dr. Ashlie Hills IG % 0.2 % Normal 0.0-0.5 [facility] Comment on above: Performed By: #### C BC #### [facility] [address] [place] [address] Dr. Ashlie Hills LYMPH # 2.8 103/ul Normal 1.2-3.8 [facility] Comment on above: Performed By: #### C BC #### [facility] [address] [place] [address] Dr. Ashlie Hills Lymphocytes/100 WBC (Bld) 29.9 % Normal 20.5-60.0 [facility] Comment on above: Performed By: #### C BC #### [facility] [address] [place] [address] Dr. Ashlie Hills MANUAL DIFF REQ NO Normal [facility] Comment on above: Performed By: #### C BC #### [facility] [address] [place] [address] Dr. Ashlie Hills MCH (RBC) [Entitic mass] 28.5 pg Normal 26.7-34.0 [facility] Comment on above: Performed By: #### C BC #### [facility] [address] [place] [address] Dr. Ashlie Hills MCHC (RBC) [Mass/Vol] 31.8 g/dL Normal 29.9-35.2 [facility] Comment on above: Performed By: #### C BC #### [facility] [address] [place] [address] Dr. Ashlie Hills MCV (RBC) [Entitic vol] 89.8 fL Normal 81.0-99.0 [facility] Comment on above: Performed By: #### C BC #### [facility] [address] [place] [address] Dr. Ashlie Hills MONO # 1.0 103/ul Critically high 0.3-0.8 [facility] Comment on above: Performed By: #### C BC #### [facility] [address] [place] [address] Dr. Ashlie Hills Monocytes/100 WBC (Bld) 10.6 % Normal 1.7-12.0 [facility] Comment on above: Performed By: #### C BC #### [facility] [address] [place] [address] Dr. Ashlie Hills NEUT # 5.3 103/ul Normal 1.4-6.5 [facility] Comment on above: Performed By: #### C BC #### [facility] [address] [place] [address] Dr. Ashlie Hills Neutrophils/100 WBC (Bld) 56.8 % Normal 43.0-75.0 [facility] Comment on above: Performed By: #### C BC #### [facility] [address] [place] [address] Dr. Ashlie Hills Platelet mean volume (Bld) [Entitic vol] 12.5 fL Normal 9.5-13.5 [facility] Comment on above: Performed By: #### C BC #### [facility] [address] [place] [address] Dr. Ashlie Hills PLT 109 103/ul Critically low 150-450 [facility] Comment on above: Performed By: #### C BC #### [facility] [address] [place], [place] [id number] Dr. Ashlie Hills RBC 5.47 106/ul Critically high 4.20-5.40 [facility] Comment on above: Performed By: #### C BC #### [facility] [address] [place] [address] Dr. Ashlie Hills WBC 9.4 103/ul Normal 4.0-11.0 [facility] Comment on above: Performed By: #### C BC #### [facility] [address] [place] [address] Dr. Ashlie Hills PROF 14(COMP METB)on 023 Albumin [Mass/Vol] 2.9 g/dL Critically low 3.4-5.0 Th e [facility] Comment on above: Performed By: #### C BC #### [facility] [address] [place] [address] Dr. Ashlie Hills Albumin/Globulin [Mass ratio] 0.6 {ratio} Normal [facility] Comment on above: Performed By: #### C BC #### [facility] [address] [place] [address] Dr. Ashlie Hills ALP [Catalytic activity/Vol] 64 U/L Normal 46-116 [facility] Comment on above: Performed By: #### C BC #### [facility] [address] [place] [address] Dr. Ashlie Hills ALT [Catalytic activity/Vol] 16 U/L Normal 14-59 [facility] Comment on above: Performed By: #### C BC #### [facility] [address] [place] [address] Dr. Ashlie Hills Anion gap [Moles/Vol] 9.6 mmol/L Normal [facility] Comment on above: Performed By: #### C BC #### [facility] [address] [place] [address] Dr. Ashlie Hills AST [Catalytic activity/Vol] 16 U/L Normal 15-37 [facility] Comment on above: Performed By: #### C BC #### [facility] [address] [place] [address] Dr. Ashlie Hills Bilirubin [Mass/Vol] 0.5 mg/dL Normal 0.2-1.0 [facility] Comment on above: Performed By: #### C BC #### [facility] [address] [place] [address] Dr. Ashlie Hills Calcium [Mass/Vol] 8.7 mg/dL Normal 8.5-10.1 [facility] Comment on above: Performed By: #### C BC #### [facility] [address] [place] [address] Dr. Ashlie Hills Chloride [Moles/Vol] 103 mmol/L Normal 98-107 [facility] Comment on above: Performed By: #### C BC #### [facility] [address] [address] [address] Ashlie Hills CO2 [Moles/Vol] 30.7 mmol/L Normal 21.0-32.0 [facility] Comment on above: Performed By: #### C BC #### [facility] [address] [place] [address] Dr. Ashlie Hills Creatinine [Mass/Vol] 0.96 mg/dL Normal 0.55-1.02 [facility] Comment on above: Performed By: #### C BC #### [facility] [address] [place] [address] Dr. Ashlie Hills EGFR-AF IRAQI >60 Normal >=60 [facility] Comment on above: Performed By: #### C BC #### [facility] [address] [place] [address] Dr. Ashlie Hills EGFR-NON AF IRAQI >60 Normal >=60 [facility] Comment on above: Performed By: #### C BC #### [facility] [address] [place] [address] Dr. Ashlie Hills Globulin (S) [Mass/Vol] 4.7 g/dL Normal [facility] Comment on above: Performed By: #### C BC #### [facility] [address] [place] [address] Dr. Ashlie Hills Glucose [Mass/Vol] 170 mg/dL Critically high 74-106 [facility] Comment on above: Performed By: #### C BC #### [facility] [address] [place] [address] Dr. Ashlie Hills Potassium [Moles/Vol] 4.3 mmol/L Normal 3.5-5.1 [facility] Comment on above: Performed By: #### C BC #### [facility] [address] [place] [address] Dr. Ashlie Hills Protein [Mass/Vol] 7.6 g/dL Normal 6.4-8.2 [facility] Comment on above: Performed By: #### C BC #### [facility] [address] [place] [address] Dr. Ashlie Hills Sodium [Moles/Vol] 139 mmol/L Normal 136-145 [facility] Comment on above: Performed By: #### C BC #### [facility] [address] [address] [address] Ashlie Hills Urea nitrogen [Mass/Vol] 16.0 mg/dL Normal 7.0-18.0 [facility] Comment on above: Performed By: #### C BC #### [facility] [address] [place] [address] Dr. Ashlie Hills Urea nitrogen/Creatinine [Mass ratio] 16.7 mg/mg Normal [facility] Comment on above: Performed By: #### C BC #### [facility] [address] [place] [address] Dr. Ashlie Hills SYMPTOMATIC COVID-19 ANTIGEN on 12-04-2022 EUA Statement SEE BELOW Normal [facility] Comment [...] #### [facility] [address] [place] [address] Dr. Ashlie Hills SARS-CoV-2 (COVID-19) RNA MADDY+probe Ql (Unsp spec) Negative Normal NEGATIVE [facility] Comment on above: Performed By: #### C VDAGS #### [facility] [address] [place] [address] Dr. Ashlie Hills TROPONIN, HIGH SENSITIVITYon 12-04-2022 [...] #### [facility] [address] [place] [address] Dr. Ashlie Hills MICROALBUMIN, RAND URon 11-06 mALB 35.8 mg/dL Critically high <=30.0 [facility] Comment on above: Performed By: #### C VDAGS #### [facility] [address] [place] [address] Dr. Ashlie Hills UA RANDOM W/MICROSCOPICon BACTERIA NONE SEEN Normal NONE SEEN [facility] Comment on above: Performed By: #### C VDAGS #### [facility] [address] [place] [address] Dr. Ashlie Hills Bilirubin Ql (U) Negative Normal NEGATIVE [facility] Comment on above: Performed By: #### C VDAGS #### [facility] [address] [place] [address] Dr. Ashlie Hills CAST SEEN Abnormal NONE SEEN [facility] Comment on above: Performed By: #### C VDAGS #### [facility] [address] [place] [address] Dr. Ashlie Hills Clarity (U) CLEAR Normal CLEAR [facility] Comment on above: Performed By: #### C VDAGS #### [facility] [address] [place] [address] Dr. Ashlie Hills Color (U) YELLOW Normal YELLOW [facility] Comment on above: Performed By: #### C VDAGS #### [facility] [address] [place] [address] Dr. Ashlie Hills Crystals LM Nom (Urine sed) NONE SEEN Normal NONE SEEN [facility] Comment on above: Performed By: #### C VDAGS #### [facility] [address] [place] [address] Dr. Ashlie Hills Epithelial cells LM Ql (Urine sed) MODERATE Abnormal NONE SEEN /RARE [facility] Comment on above: Performed By: #### C VDAGS #### [facility] [address] [place] [address] Dr. Ashlie Hills Glucose Ql (U) Negative Normal NEGATIVE [facility] Comment on above: Performed By: #### C VDAGS #### [facility] [address] [place] [address] Dr. Ashlie Hills Hemoglobin Ql (U) TRACE-INTACT Abnormal NEGATIVE [facility] Comment on above: Performed By: #### C VDAGS #### [facility] [address] [place] [address] Dr. Ashlie Hills Ketones Ql (U) Negative Normal NEGATIVE [facility] Comment on above: Performed By: #### C VDAGS #### [facility] [address] [place] [address] Dr. Ashlie Hills LEUKOCYTES Negative Normal NEGATIVE [facility] Comment on above: Performed By: #### C VDAGS #### [facility] [address] [place] [address] Dr. Ashlie Hills MUCOUS NONE SEEN Normal NONE SEEN [facility] Comment on above: Performed By: #### C VDAGS #### [facility] [address] [place] [address] Dr. Ashlie Hills Nitrite Ql (U) Negative Normal NEGATIVE [facility] Comment on above: Performed By: #### C VDAGS #### [facility] [address] [place] [address] Dr. Ashlie Hills pH (U) 5.0 [pH] Normal 5-9 [facility] Comment on above: Performed By: #### C VDAGS #### [facility] [address] [place] [address] Dr. Ashlie Hills RBC 0-2 Normal 0-2 [facility] Comment on above: Performed By: #### C VDAGS #### [facility] [address] [place] [address] Dr. Ashlie Hills SPEC GRAVITY 1.030 Abnormal 1.005-<=1.025 [facility] Comment on above: Performed By: #### C VDAGS #### [facility] [address] [place] [address] Dr. Ashlie Hills UA PROTEIN 100 mg/dl Abnormal NEGATIVE/ TRACE [facility] Comment on above: Performed By: #### C VDAGS #### [facility] [address] [place] [address] Dr. Ashlie Hills Urobilinogen Qn (U) 0.2 {Little'U}/dL Normal 0.2 - 1. 0 [facility] Comment on above: Performed By: #### C VDAGS #### [facility] [address] [place] [address] Dr. Ashlie Hills WBC NONE SEEN Normal NONE SEEN [facility] Comment on above: Performed By: #### C VDAGS #### [facility] [address] [place] [address] Dr. Ashlie Hills CBC AUTO DIFFon 11-22-2022 BASO # 0.0 103/ul Normal 0.0-0.1 [facility] Comment on above: Performed By: #### C BC #### [facility] [address] [place] [address] Dr. Ashlie Hills Basophils/100 WBC (Bld) 0.3 % Normal 0.2-2.0 [facility] Comment on above: Performed By: #### C BC #### [facility] [address] [place] [address] Dr. Ashlie Hills EO # 0.4 103/ul Normal 0.0-0.7 [facility] Comment on above: Performed By: #### C BC #### [facility] [address] [place] [address] Dr. Ashlie Hills Eosinophils/100 WBC (Bld) 3.0 % Normal 0.9-7.0 [facility] Comment on above: Performed By: #### C BC #### [facility] [address] [place] [address] Dr. Ashlie Hills Erythrocyte distribution width (RBC) [Ratio] 15.3 % Critically high 11.0-15.0 [facility] Comment on above: Performed By: #### C BC #### [facility] [address] [place] [address] Dr. Ashlie Hills Hematocrit (Bld) [Volume fraction] 52.4 % Critically high 36.0-48.0 [facility] Comment on above: Performed By: #### C BC #### [facility] [address] [place] [address] Dr. Ashlie Hills Hemoglobin (Bld) [Mass/Vol] 16.8 g/dL Critically high 12.0-16.0 [facility] Comment on above: Performed By: #### C BC #### [facility] [address] [place] [address] Dr. Ashlie Hills IG # 0.04 10e3/ul Critically high 0.00-0.03 [facility] Comment on above: Performed By: #### C BC #### [facility] [address] [place] [address] Dr. Ashlie Hills IG % 0.3 % Normal 0.0-0.5 [facility] Comment on above: Performed By: #### C BC #### [facility] [address] [place] [address] Dr. Ashlie Hills LYMPH # 4.5 103/ul Critically high 1.2-3.8 [facility] Comment on above: Performed By: #### C BC #### [facility] [address] [place] [address] Dr. Ashlie Hills Lymphocytes/100 WBC (Bld) 33.2 % Normal 20.5-60.0 [facility] Comment on above: Performed By: #### C BC #### [facility] [address] [place] [address] Dr. Ashlie Hills MANUAL DIFF REQ NO Normal [facility] Comment on above: Performed By: #### C BC #### [facility] [address] [place] [address] Dr. Ashlie Hills MCH (RBC) [Entitic mass] 28.0 pg Normal 26.7-34.0 [facility] Comment on above: Performed By: #### C BC #### [facility] [address] [place] [address] Dr. Ashlie Hills MCHC (RBC) [Mass/Vol] 32.1 g/dL Normal 29.9-35.2 [facility] Comment on above: Performed By: #### C BC #### [facility] [address] [place] [address] Dr. Ashlie Hills MCV (RBC) [Entitic vol] 87.3 fL Normal 81.0-99.0 [facility] Comment on above: Performed By: #### C BC #### [facility] [address] [place] [address] Dr. Ashlie Hills MONO # 0.8 103/ul Normal 0.3-0.8 [facility] Comment on above: Performed By: #### C BC #### [facility] [address] [place] [address] Dr. Ashlie Hills Monocytes/100 WBC (Bld) 5.7 % Normal 1.7-12.0 [facility] Comment on above: Performed By: #### C BC #### [facility] [address] [place] [address] Dr. Ashlie Hills NEUT # 7.8 103/ul Critically high 1.4-6.5 [facility] Comment on above: Performed By: #### C BC #### [facility] [address] [place] [address] Dr. Ashlie Hills Neutrophils/100 WBC (Bld) 57.5 % Normal 43.0-75.0 [facility] Comment on above: Performed By: #### C BC #### [facility] [address] [place] [address] Dr. Ashlie Hills Platelet mean volume (Bld) [Entitic vol] 12.0 fL Normal 9.5-13.5 [facility] Comment on above: Performed By: #### C BC #### [facility] [address] [place] [address] Dr. Ashlie Hills PLT 152 103/ul Normal 150-450 [facility] Comment on above: Performed By: #### C BC #### [facility] [address] [place] [address] Dr. Ashlie Hills RBC 6.00 106/ul Critically high 4.20-5.40 [facility] Comment on above: Performed By: #### C BC #### [facility] [address] [place] [address] Dr. Ashlie Hills WBC 13.6 103/ul Critically high 4.0-11.0 [facility] Comment on above: Performed By: #### C BC #### [facility] [address] [place] [address] Dr. Ashlie Hills LIPID PROFILEon 11-22-2022 CHOL-HDL RATIO NORM SEE BELOW Normal [facility] Comment on above: Result Comment: 3.3 - 4.4 LOW RISK 4.4 - 7.1 AVERAGE RISK 7.1 - 11.0 MODERATE RISK >11.0 HIGH RISK Performed By: #### C BC #### [facility] [address] [place] [address] Dr. Ashlie Hills Cholesterol [Mass/Vol] 139 mg/dL Normal <=200 [facility] Comment on above: Performed By: #### C BC #### [facility] [address] [place] [address] Dr. Ashlie Hills Cholesterol in HDL [Mass/Vol] 35 mg/dL Critically low 40-60 [facility] Comment on above: Performed By: #### C BC #### [facility] [address] [place] [address] Dr. Ashlie Hills Cholesterol in LDL [Mass/Vol] 67.4 mg/dL Normal [facility] Comment on above: Performed By: #### C BC #### [facility] [address] [place] [address] Dr. Ashlie Hills Cholesterol.total/Chol esterol in HDL [Mass ratio] 4.0 {ratio} Normal [facility] Comment on above: Performed By: #### C BC #### [facility] [address] [address] [address] Ashlie Hills HDL NORMAL > or = 60 mg/dl - LOW CARDIOVASCULAR RISK <40 mg/dl - HIGH CARDIOVASCULAR RISK Normal [facility] Comment on above: Performed By: #### C BC #### [facility] [address] [address] [address] Ashlie Hills LDL CALC NORMAL SEE BELOW Normal [facility] Comment on above: Result Comment: <100 mg/dl OPTIMAL 100 - 129 mg/dl NEAR OR ABOVE OPTIMAL 130 - 159 mg/dl BORDERLINE HIGH 160 - 189 mg/dl HIGH >190 mg/dl VERY HIGH Performed By: #### C BC #### [facility] [address] [address] [address] Ashlie Hills Triglyceride [Mass/Vol] 183 mg/dL Critically high <=150 [facility] Comment on above: Performed By: #### C BC #### [facility] [address] [address] [address] Ashlie Hills VLDL CALC 36.6 mg/dL Normal [facility] Comment on above: Performed By: #### C BC #### [facility] [address] [address] [address] 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 on 11/22/2022 at 12:09 Normal [facility] PROF 14(COMP METB)on 023 Albumin [Mass/Vol] 3.0 g/dL Critically low 3.4-5.0 [facility] Comment on above: Performed By: #### C BC #### [facility] [address] [place] [address] Dr. Ashlie Hills Albumin/Globulin [Mass ratio] 0.6 {ratio} Normal [facility] Comment on above: Performed By: #### C BC #### [facility] [address] [place] [address] Dr. Ashlie Hills ALP [Catalytic activity/Vol] 68 U/L Normal 46-116 [facility] Comment on above: Performed By: #### C BC #### [facility] [address] [address] [address] Ashlie Hills ALT [Catalytic activity/Vol] 14 U/L Normal 14-59 [facility] Comment on above: Performed By: #### C BC #### [facility] [address] [address] [address] Ashlie Hills Anion gap [Moles/Vol] 12.1 mmol/L Normal [facility] Comment on above: Performed By: #### C BC #### [facility] [address] [address] [address] Ashlie Hills AST [Catalytic activity/Vol] 9 U/L Critically low 15-37 [facility] Comment on above: Performed By: #### C BC #### [facility] [address] [address] [address] Ashlie Hills Bilirubin [Mass/Vol] 0.4 mg/dL Normal 0.2-1.0 [facility] Comment on above: Performed By: #### C BC #### [facility] [address] [address] [address] Ashlie Hills Calcium [Mass/Vol] 9.0 mg/dL Normal 8.5-10.1 [facility] Comment on above: Performed By: #### C BC #### [facility] [address] [place] [address] Dr. Ashlie Hills Chloride [Moles/Vol] 105 mmol/L Normal 98-107 [facility] Comment on above: Performed By: #### C BC #### [facility] [address] [address] [address] Ashlie Hills CO2 [Moles/Vol] 30.7 mmol/L Normal 21.0-32.0 [facility] Comment on above: Performed By: #### C BC #### [facility] [address] [place] [address] Dr. Ashlie Hills Creatinine [Mass/Vol] 0.77 mg/dL Normal 0.55-1.02 [facility] Comment on above: Performed By: #### C BC #### [facility] [address] [place] [address] Dr. Ashlie Hills EGFR-AF IRAQI >60 Normal >=60 [facility] Comment on above: Performed By: #### C BC #### [facility] [address] [place] [address] Dr. Ashlie Hills EGFR-NON AF IRAQI >60 Normal >=60 [facility] Comment on above: Performed By: #### C BC #### [facility] [address] [place] [address] Dr. Ashlie Hills Globulin (S) [Mass/Vol] 4.8 g/dL Normal [facility] Comment on above: Performed By: #### C BC #### [facility] [address] [place] [address] Dr. Ashlie Hills Glucose [Mass/Vol] 162 mg/dL Critically high 74-106 [facility] Comment on above: Performed By: #### C BC #### [facility] [address] [place] [address] Dr. Ashlie Hills Potassium [Moles/Vol] 3.8 mmol/L Normal 3.5-5.1 [facility] Comment on above: Performed By: #### C BC #### [facility] [address] [place] [address] Dr. Ashlie Hills Protein [Mass/Vol] 7.8 g/dL Normal 6.4-8.2 [facility] Comment on above: Performed By: #### C BC #### [facility] [address] [place] [address] Dr. Ashlie Hills Sodium [Moles/Vol] 144 mmol/L Normal 136-145 [facility] Comment on above: Performed By: #### C BC #### [facility] [address] [place] [address] Dr. Ashlie Hills Urea nitrogen [Mass/Vol] 24.0 mg/dL Critically high 7.0-18.0 [facility] Comment on above: Performed By: #### C BC #### [facility] [address] [place] [address] Dr. Ashlie Hills Urea nitrogen/Creatinine [Mass ratio] 31.2 mg/mg Normal [facility] Comment on above: Performed By: #### C BC #### [facility] [address] [place] [address] Dr. Ashlie Hills CBC AUTO DIFFon 10-05-2022 BASO # 0.1 103/ul Normal 0.0-0.1 [facility] Comment on above: Performed By: #### C BC #### [facility] [address] [place] [address] Dr. Ashlie Hills Basophils/100 WBC (Bld) 0.6 % Normal 0.2-2.0 [facility] Comment on above: Performed By: #### C BC #### [facility] [address] [place] [address] Dr. Ashlie Hills EO # 0.3 103/ul Normal 0.0-0.7 [facility] Comment on above: Performed By: #### C BC #### [facility] [address] [place] [address] Dr. Ashlie Hills Eosinophils/100 WBC (Bld) 2.1 % Normal 0.9-7.0 [facility] Comment on above: Performed By: #### C BC #### [facility] [address] [place] [address] Dr. Ashlie Hills Erythrocyte distribution width (RBC) [Ratio] 15.9 % Critically high 11.0-15.0 [facility] Comment on above: Performed By: #### C BC #### [facility] [address] [place] [address] Dr. Ashlie Hills Hematocrit (Bld) [Volume fraction] 51.8 % Critically high 36.0-48.0 [facility] Comment on above: Performed By: #### C BC #### [facility] [address] [place] [address] Dr. Ashlie Hills Hemoglobin (Bld) [Mass/Vol] 16.6 g/dL Critically high 12.0-16.0 [facility] Comment on above: Performed By: #### C BC #### [facility] [address] [place] [address] Dr. Ashlie Hills IG # 0.03 10e3/ul Normal 0.00-0.03 [facility] Comment on above: Performed By: #### C BC #### [facility] [address] [place] [address] Dr. Ashlie Hills IG % 0.2 % Normal 0.0-0.5 [facility] Comment on above: Performed By: #### C BC #### [facility] [address] [place] [address] Dr. Ashlie Hills LYMPH # 3.9 103/ul Critically high 1.2-3.8 [facility] Comment on above: Performed By: #### C BC #### [facility] [address] [place] [address] Dr. Ashlie Hills Lymphocytes/100 WBC (Bld) 31.7 % Normal 20.5-60.0 [facility] Comment on above: Performed By: #### C BC #### [facility] [address] [place] [address] Dr. Ashlie Hills MANUAL DIFF REQ NO Normal [facility] Comment on above: Performed By: #### C BC #### [facility] [address] [place] [address] Dr. Ashlie Hills MCH (RBC) [Entitic mass] 27.9 pg Normal 26.7-34.0 [facility] Comment on above: Performed By: #### C BC #### [facility] [address] [place] [address] Dr. Ashlie Hills MCHC (RBC) [Mass/Vol] 32.0 g/dL Normal 29.9-35.2 [facility] Comment on above: Performed By: #### C BC #### [facility] [address] [place] [address] Dr. Ashlie Hills MCV (RBC) [Entitic vol] 87.1 fL Normal 81.0-99.0 [facility] Comment on above: Performed By: #### C BC #### [facility] [address] [place] [address] Dr. Ashlie Hills MONO # 0.7 103/ul Normal 0.3-0.8 [facility] Comment on above: Performed By: #### C BC #### [facility] [address] [place] [address] Dr. Ashlie Hills Monocytes/100 WBC (Bld) 5.8 % Normal 1.7-12.0 [facility] Comment on above: Performed By: #### C BC #### [facility] [address] [place] [address] Dr. Ashlie Hills NEUT # 7.3 103/ul Critically high 1.4-6.5 [facility] Comment on above: Performed By: #### C BC #### [facility] [address] [place] [address] Dr. Ashlie Hills Neutrophils/100 WBC (Bld) 59.6 % Normal 43.0-75.0 [facility] Comment on above: Performed By: #### C BC #### [facility] [address] [place] [address] Dr. Ashlie Hills Platelet mean volume (Bld) [Entitic vol] 11.7 fL Normal 9.5-13.5 [facility] Comment on above: Performed By: #### C BC #### [facility] [address] [place] [address] Dr. Ashlie Hills PLT 117 103/ul Critically low 150-450 [facility] Comment on above: Performed By: #### C BC #### [facility] [address] [place] [address] Dr. Ashlie Hills RBC 5.95 106/ul Critically high 4.20-5.40 [facility] Comment on above: Performed By: #### C BC #### [facility] [address] [place] [address] Dr. Ashlie Hills WBC 12.3 103/ul Critically high 4.0-11.0 [facility] Comment on above: Performed By: #### C BC #### [facility] [address] [place] [address] ABD/PELV W CONon [...] (U) Negative Normal NEGATIVE [facility] Comment on above: Performed By: #### P OCGLUC #### [facility] [address] [place] [address] Dr. Ashlie Hills Clarity (U) CLEAR Normal CLEAR [facility] Comment on above: Performed By: #### P OCGLUC #### [facility] [address] [place] [address] Dr. Ashlie Hills Color (U) YELLOW Normal YELLOW [facility] Comment on above: Performed By: #### P OCGLUC #### [facility] [address] [address] [address] Ashlie Hills ERUAHD A micrscopic examination will be performed if indicated. Normal [facility] Comment on above: Performed By: #### P OCGLUC #### [facility] [address] [address] [address] Ashlie Hills Glucose Ql (U) Negative Normal NEGATIVE [facility] Comment on above: Performed By: #### P OCGLUC #### [facility] [address] [address] [address] Ashlie Hills Hemoglobin Ql (U) Negative Normal NEGATIVE [facility] Comment on above: Performed By: #### P OCGLUC #### [facility] [address] [place] [address] Dr. Ashlie Hills Ketones Ql (U) Negative Normal NEGATIVE [facility] Comment on above: Performed By: #### P OCGLUC #### [facility] [address] [place] [address] Dr. Ashlie Hills LEUKOCYTES Negative Normal NEGATIVE [facility] Comment on above: Performed By: #### P OCGLUC #### [facility] [address] [place] [address] Dr. Ashlie Hills Nitrite Ql (U) Negative Normal NEGATIVE [facility] Comment on above: Performed By: #### P OCGLUC #### [facility] [address] [place] [address] Dr. Ashlie Hills pH (U) 6.0 [pH] Normal 5-9 [facility] Comment on above: Performed By: #### P OCGLUC #### [facility] [address] [place] [address] Dr. Ashlie Hills Protein (U) [Mass/Vol] 100 mg/dL Abnormal NEGAT YURY/ TRACE [facility] Comment on above: Performed By: #### P OCGLUC #### [facility] [address] [place] [address] Dr. Ashlie Hills SPEC GRAVITY 1.010 Normal 1.005-<=1.025 [facility] Comment on above: Performed By: #### P OCGLUC #### [facility] [address] [place] [address] Dr. Ashlie Hills UR MICRO IND INDICATED Normal [facility] Comment on above: Performed By: #### P OCGLUC #### [facility] [address] [place] [address] Dr. Ashlie Hills Urobilinogen Qn (U) 1.0 {Little'U}/dL Normal 0.2 - 1. 0 [facility] Comment on above: Performed By: #### P OCGLUC #### [facility] [address] [place] [address] Dr. Ashlie Hills LIPASEon 10-05-2022 Lipase [Catalytic activity/Vol] 1771.0 U/L Critically high 73.0-393.0 [facility] Comment on above: Performed By: #### C BC #### [facility] [address] [place] [address] Dr. Ashlie Hills PREG HCG QUALon 10-05-2022 , QUAL Negative Normal NEGATIVE [facility] Comment on above: Performed By: #### P OCGLUC #### [facility] [address] [place] [address] Dr. Ashlie Hills PROF 14(COMP METB)on 023 Albumin [Mass/Vol] 3.2 g/dL Critically low 3.4-5.0 [facility] Comment on above: Performed By: #### C BC #### [facility] [address] [place] [address] Dr. Ashlie Hills Albumin/Globulin [Mass ratio] 0.7 {ratio} Normal [facility] Comment on above: Performed By: #### C BC #### [facility] [address] [place] [address] Dr. Ashlie Hills ALP [Catalytic activity/Vol] 70 U/L Normal 46-116 [facility] Comment on above: Performed By: #### C BC #### [facility] [address] [place] [address] Dr. Ashlie Hills ALT [Catalytic activity/Vol] 11 U/L Critically low 14-59 [facility] Comment on above: Performed By: #### C BC #### [facility] [address] [place] [address] Dr. Ashlie Hills Anion gap [Moles/Vol] 10.3 mmol/L Normal [facility] Comment on above: Performed By: #### C BC #### [facility] [address] [place] [address] Dr. Ashlie Hills AST [Catalytic activity/Vol] 11 U/L Critically low 15-37 [facility] Comment on above: Performed By: #### C BC #### [facility] [address] [place] [address] Dr. Ashlie Hills Bilirubin [Mass/Vol] 0.9 mg/dL Normal 0.2-1.0 [facility] Comment on above: Performed By: #### C BC #### [facility] [address] [place] [address] Dr. Ashlie Hills Calcium [Mass/Vol] 9.3 mg/dL Normal 8.5-10.1 [facility] Comment on above: Performed By: #### C BC #### [facility] [address] [place] [address] Dr. Ashlie Hills Chloride [Moles/Vol] 105 mmol/L Normal 98-107 [facility] Comment on above: Performed By: #### C BC #### [facility] [address] [address] [address] Ashlie Hills CO2 [Moles/Vol] 30.6 mmol/L Normal 21.0-32.0 [facility] Comment on above: Performed By: #### C BC #### [facility] [address] [place] [address] Dr. Ashlie Hills Creatinine [Mass/Vol] 0.62 mg/dL Normal 0.55-1.02 [facility] Comment on above: Performed By: #### C BC #### [facility] [address] [place] [address] Dr. Ashlie Hills EGFR-AF IRAQI >60 Normal >=60 [facility] Comment on above: Performed By: #### C BC #### [facility] [address] [place] [address] Dr. Ashlie Hills EGFR-NON AF IRAQI >60 Normal >=60 [facility] Comment on above: Performed By: #### C BC #### [facility] [address] [place] [address] Dr. Ashlie Hills Globulin (S) [Mass/Vol] 4.6 g/dL Normal [facility] Comment on above: Performed By: #### C BC #### [facility] [address] [place] [address] Dr. Ashlie Hills Glucose [Mass/Vol] 85 mg/dL Normal 74-106 [facility] Comment on above: Performed By: #### C BC #### [facility] [address] [place] [address] Dr. Ashlie Hills Potassium [Moles/Vol] 3.9 mmol/L Normal 3.5-5.1 [facility] Comment on above: Performed By: #### C BC #### [facility] [address] [address] [address] Ashlie Hills Protein [Mass/Vol] 7.8 g/dL Normal 6.4-8.2 [facility] Comment on above: Performed By: #### C BC #### [facility] [address] [address] [address] Ashlie Hills Sodium [Moles/Vol] 142 mmol/L Normal 136-145 [facility] Comment on above: Performed By: #### C BC #### [facility] [address] [address] [address] Ashlie Hills Urea nitrogen [Mass/Vol] 12.0 mg/dL Normal 7.0-18.0 [facility] Comment on above: Performed By: #### C BC #### [facility] [address] [place] [address] Dr. Ashlie Hills Urea nitrogen/Creatinine [Mass ratio] 19.4 mg/mg Normal [facility] Comment on above: Performed By: #### C BC #### [facility] [address] [address] [address] Ashlie Hills URINE MICROSCOPIC ONLYon BACTERIA TRACE Abnormal NONE SEEN [facility] Comment on above: Performed By: #### P OCGLUC #### [facility] [address] [place] [address] Dr. Ashlie Hills Bacteria identified Cx Nom (U) NOT INDICATED Normal [facility] Comment on above: Performed By: #### P OCGLUC #### [facility] [address] [place] [address] Dr. Ashlie Hills CAST NONE SEEN Normal NONE SEEN [facility] Comment on above: Performed By: #### P OCGLUC #### [facility] [address] [place] [address] Dr. Ashlie Hills Crystals LM Nom (Urine sed) NONE SEEN Normal NONE SEEN [facility] Comment on above: Performed By: #### P OCGLUC #### [facility] [address] [place] [address] Dr. Ashlie Hills Epithelial cells LM Ql (Urine sed) MODERATE Abnormal NONE SEEN /RARE [facility] Comment on above: Performed By: #### P OCGLUC #### [facility] [address] [place] [address] Dr. Ashlie Hills MUCOUS NONE SEEN Normal NONE SEEN [facility] Comment on above: Performed By: #### P OCGLUC #### [facility] [address] [place] [address] Dr. Ashlie Hills RBC 0-2 Normal 0-2 [facility] Comment on above: Performed By: #### P OCGLUC #### [facility] [address] [place] [address] Dr. Ashlie Hills WBC 0-2 Abnormal NONE SEEN [facility] Comment on above: Performed By: #### P OCGLUC #### [facility] [address] [place] [address] Dr. Ashlei Hills Covid-19 PCR ([facility])on 09-06 SARS-CoV-2 (COVID-19) RNA MADDY+probe [...] for this test is supported by the Independence of Health and Human Service's declaration that [...] #### [facility] [address] [place] [address] Dr. Ashlie Hills INFLUENZA A AND B AGon 09-21 INFLUANEGH SEE BELOW Normal [facility] Comment on above: Result Comment: Nega tive for Flu A protein angiten. Infection due to Flu A cannot be ruled out. Flu A angiten in the sample may be below the detection limit of the test. Performed By: #### I NFLUAB #### [facility] [address] [place] [address] Dr. Ashlie Hills INFLUBNEG SEE BELOW Normal [facility] Comment on above: Result Comment: Nega tive for Flu B protein antigen. Infection due to Flu B cannot be ruled out. Flu B antigen in the sample may be below the detection limit of the test. Performed By: #### I NFLUAB #### [facility] [address] [place] [address] Dr. Ashlie Hills INFLUENZA A AG Negative Normal NEGATIVE SEE COMMENT [facility] Comment on above: Performed By: #### I NFLUAB #### [facility] [address] [place] [address] Dr. Ashlie Hills INFLUENZA B AG Negative Normal NEGATIVE SEE COMMENT [facility] Comment on above: Performed By: #### I NFLUAB #### [facility] [address] [place] [address] ABD/PELV W CONon [...] to at least 10/21/2018, unchanged. https://www.ncbi.nlm .nih.gov/pmc/article s/[id number]/ Electronically authenticated by: COLLIN HUERTAS Date: 2022-07-27 14:56 Normal [facility] CREATININEon 07-18-2022 Creatinine [Mass/Vol] 0.81 mg/dL Normal 0.55-1.02 [facility] Comment on above: Performed By: #### C BC #### [facility] [address] [place] [address] Dr. Ashlie Hills EGFR-AF IRAQI >60 Normal >=60 [facility] Comment on above: Performed By: #### C BC #### [facility] [address] [place] [address] Dr. Ashlie Hills EGFR-NON AF IRAQI >60 Normal >=60 [facility] Comment on above: Performed By: #### C BC #### [facility] [address] [place] [address] LOW EXT W [...] [facility]on 06-09 SARS-CoV-2 (COVID-19) RNA MADDY+probe Ql [...] for this test is supported by the Inspector Floor Sub [employer] of Health and Human Service's (HHS's) declaration [...] #### [facility] [address] [place] [address] Dr. Ashlie Hills INFLUENZA A AND B [facility]on 07-06 [facility] Normal [facility] Comment on above: Result Comment: Nega tive for Flu A protein angiten. Infection due to Flu A cannot be ruled out. Flu A angiten in the sample may be below the detection limit of the test. Performed By: #### C BC #### [facility] [address] [address] [address] Ashlie Hills INFLUBNEG SEE BELOW Normal [facility] Comment on above: Result Comment: Nega tive for Flu B protein antigen. Infection due to Flu B cannot be ruled out. Flu B antigen in the sample may be below the detection limit of the test. Performed By: #### C BC #### [facility] [address] [place] [address] Dr. Ashlie Hills INFLUENZA A AG Negative Normal NEGATIVE SEE COMMENT [facility] Comment on above: Performed By: #### C BC #### [facility] [address] [address] [address] Ashlie Hills INFLUENZA B AG Negative Normal NEGATIVE SEE COMMENT [facility] Comment on above: Performed By: #### C BC #### [facility] [address] [place] [address] Dr. Ashlie Hills POINT OF CARE GLUCOSEon 10- Glucose [Mass/Vol] 108 mg/dL Critically high 74-106 T [facility] Comment on above: Performed By: #### C BC #### [facility] [address] [place] [address] Dr. Ashlie Hills RAGHU by IFAon 03-07-2022 Antinuclear Antibodies, IFA Negative Normal [facility] Comment on above: Result Comment: Nega tive <1:80 Borderline 1:80 Positive >1:80 ICAP nomenclature: AC-0 For more information about Hep-2 cell patterns use ANApatterns.org, the official website for the International Consensus on Antinuclear Antibody (RAGHU) Patterns (ICAP). Performed By: #### A NAIFA #### [facility] [address] [place] [address] Dr. Ashlie Hills IMMUNOFIXATION (TREVON), URINEo n 03-07-2022 TREVON Interpretation:U Comment Normal [facility] Comment on above: Result Comment: No m onoclonality detected. Performed By: #### C BC #### [facility] [address] [place] [address] Dr. Ashlie Hills IMMUNOFIXATION(TREVON),PROTEIN ELEC(PE),FREon 03-07-2022 Albumin [Mass/Vol] 3.0 g/dL Normal 2.9-4.4 [facility] Comment on above: Performed By: #### I NFLUAB #### [facility] [address] [place] [address] Dr. Ashlie Hills Albumin/Globulin [Mass ratio] 0.8 {ratio} Normal 0.7-1.7 [facility] Comment on above: Performed By: #### I NFLUAB #### [facility] [address] [place] [address] Dr. Ashlie Hills Pkzgb-0-Uvezrvzw 0.3 g/dL Normal 0.0-0.4 [facility] Comment on above: Performed By: #### I NFLUAB #### [facility] [address] [place] [address] Dr. Ashlie Hills Ndvxf-7-Akvuegic 1.0 g/dL Normal 0.4-1.0 [facility] Comment on above: Performed By: #### I NFLUAB #### [facility] [address] [place] [address] Dr. Ashlie Hills Beta Globulin 1.8 g/dL Critically high 0.7-1.3 [facility] Comment on above: Performed By: #### I NFLUAB #### [facility] [address] [place] [address] Dr. Ashlie Hills Free Nordheim Lt Chains,S 45.2 mg/L Critically high 3.3-19.4 [facility] Comment on above: Performed By: #### I NFLUAB #### [facility] [address] [place] [address] Dr. Ashlie Hills Free Lambda Lt Chains,S 40.3 mg/L Critically high 5.7-26.3 [facility] Comment on above: Performed By: #### I NFLUAB #### [facility] [address] [place] [address] Dr. Ashlie Hills Gamma Globulin 0.8 g/dL Normal 0.4-1.8 [facility] Comment on above: Performed By: #### I NFLUAB #### [facility] [address] [place] [address] Dr. Ashlie Hills Globulin (S) [Mass/Vol] 3.9 g/dL Normal 2.2-3.9 [facility] Comment on above: Performed By: #### I NFLUAB #### [facility] [address] [place] [address] Dr. Ashlie Hills Immunofixation Result, Serum Comment Normal [facility] Comment on above: Result Comment: No m onoclonality detected. Performed By: #### I NFLUAB #### [facility] [address] [address] [address] Ashlie Hills Immunoglobulin A, Qn, Serum 776 mg/dL Critically high 87-352 [facility] Comment on above: Performed By: #### I NFLUAB #### [facility] [address] [place] [address] Dr. Ashlie Hills Immunoglobulin G, Qn, Serum 955 mg/dL Normal 586-1602 [facility] Comment on above: Performed By: #### I NFLUAB #### [facility] [address] [place] [address] Dr. Ashlie Hills Immunoglobulin M, Qn, Serum 39 mg/dL Normal 26-217 [facility] Comment on above: Performed By: #### I NFLUAB #### [facility] [address] [place] [address] Dr. Ashlie Hills Nordheim/Lambda Ratio, S 1.12 Normal 0.26-1.65 [facility] Comment on above: Performed By: #### I NFLUAB #### [facility] [address] [address] [address] Ashlie Hills M-Bright Not Observed Normal Not Observed [facility] Comment on above: Performed By: #### I NFLUAB #### [facility] [address] [place] [address] Dr. Ashlie Hills PDF . Normal [facility] Comment on above: Performed By: #### I NFLUAB #### [facility] [address] [place] [address] Dr. Ashlie Hills Please note: Comment Normal [facility] Comment on above: Result Comment: Prot ein electrophoresis scan will follow via computer, mail, or cyber security delivery. Performed By: #### I NFLUAB #### [facility] [address] [address] [address] Ashlie Hills Protein [Mass/Vol] 6.9 g/dL Normal 6.0-8.5 [facility] Comment on above: Performed By: #### I NFLUAB #### [facility] [address] [address] [address] Ashlie Hills C-PEPTIDE, SERUMon C-Peptide, Serum 3.1 ng/mL Normal 1.1-4.4 [facility] Comment on above: Result Comment: C-Pe ptide reference interval is for fasting patients. Performed By: #### C PEPT #### [facility] [address] [place] [address] Dr. Ashlie Hills HEP B SURFACE ANTIGEN SCREEN on 03-04-2022 HBsAg Screen Negative Normal Negative [facility] Comment on above: Performed By: #### C BC #### [facility] [address] [address] [address] Ashlie Hills HEPATITIS C VIRUS AB W/ REFL EX QUANTon 03-04-2022 HCV AB <0.1 Normal 0.0-0.9 [facility] Comment on above: Performed By: #### I NFLUAB #### [facility] [address] [place] [address] Dr. Ashlie Hills Interpretation: Comment Normal [facility] Comment on above: Result Comment: Nega tive Not infected with HCV, unless recent infection is suspected or other evidence exists to indicate HCV infection. Performed By: #### I NFLUAB #### [facility] [address] [address] [address] Ashlie Hills MICROALBUMIN/ CREATININE RAT IOon 03-04-2022 Albumin, Urine 367.4 ug/mL Normal Not Estab. [facility] Comment on above: Performed By: #### C BC #### [facility] [address] [address] [address] Ashlie Hills Albumin/ Creatinine Ratio 239 mg/g creat Critically high 0-29 [facility] Comment on above: Result Comment: Norm al: 0 - 29 Moderately increased: 30 - 300 Severely increased: >300 Performed By: #### C BC #### [facility] [address] [address] [address] Ashlie Hills Creatinine, Urine 153.9 mg/dL Normal Not Estab. [facility] Comment on above: Performed By: #### C BC #### [facility] [address] [address] [address] Ashlie Hills VIT D 25-OH LABCORPon 2021 Vitamin D, 25-Hydroxy <4.0 Critically low 30.0-100.0 [facility] Comment on above: Result Comment: Graciela min D deficiency has been defined by the [place] of Medicine and an Endocrine Society practice guideline as a level of serum 25-OH vitamin D less than 20 ng/mL (1,2). The Endocrine Society went on to further define vitamin D insufficiency as a level between 21 and 29 ng/mL (2). 1. IOM ([place] of Medicine). 2010. Dietary reference intakes for calcium and D. [place]: The National Academies Press. 2. Lynda MF, Keely [place], Leandra LOPEZ, et al. Evaluation, treatment, and prevention of vitamin D deficiency: an Endocrine Society clinical practice guideline. JCEM. 2010; 96(7):1911-30. Performed By: #### C BC #### [facility] [address] [place] [address] Dr. Ashlie Hills GLYCOHEMOGLOBIN A1Con 2021 ADA RECOMMENDATION SEE BELOW Normal [facility] Comment on above: Result Comment: ADA RECOMMENDED LIMIT 4.0 - 6.0 ADA THERAPEUTIC TARGET < 7.0 ACTION SUGGESTED > 7.0 Performed By: #### C VDAGS #### [facility] [address] [address] [address] Ashlie Hills Glucose [Mass/Vol] 295 mg/dL Normal [facility] Comment on above: Performed By: #### C VDAGS #### [facility] [address] [address] [address] Ashlie Hills HbA1c (Bld) [Mass fraction] 11.9 % Critically high 4.5-6.2 [facility] Comment on above: Performed By: #### C VDAGS #### [facility] [address] [place] [address] Dr. Ashlie Hills HEMOGRAM AND PLATELon 2021 Hematocrit (Bld) [Volume fraction] 56.3 % Critically high 36.0-48.0 [facility] Comment on above: Performed By: #### C VDAGS #### [facility] [address] [place] [address] Dr. Ashlie Hills Hemoglobin (Bld) [Mass/Vol] 18.0 g/dL Critically high 12.0-16.0 [facility] Comment on above: Performed By: #### C VDAGS #### [facility] [address] [place] [address] Dr. Ashlie Hills MCH (RBC) [Entitic mass] 29.5 pg Normal 26.7-34.0 [facility] Comment on above: Performed By: #### C VDAGS #### [facility] [address] [place] [address] Dr. Ashlie Hills MCHC (RBC) [Mass/Vol] 32.0 g/dL Normal 29.9-35.2 [facility] Comment on above: Performed By: #### C VDAGS #### [facility] [address] [place] [address] Dr. Ashlie Hills MCV (RBC) [Entitic vol] 92.1 fL Normal 81.0-99.0 [facility] Comment on above: Performed By: #### C VDAGS #### [facility] [address] [place] [address] Dr. Ashlie Hills PLT 123 103/ul Critically low 150-450 [facility] Comment on above: Performed By: #### C VDAGS #### [facility] [address] [place] [address] Dr. Ashlie Hills RBC 6.11 106/ul Critically high 4.20-5.40 [facility] Comment on above: Performed By: #### C VDAGS #### [facility] [address] [address] [address] Ashlie Hills WBC 16.4 103/ul Critically high 4.0-11.0 [facility] Comment on above: Performed By: #### C VDAGS #### [facility] [address] [address] [address] Ashlie Hills LIPID PROFILEon 03-03-2022 CHOL-HDL RATIO NORM SEE BELOW Normal [facility] Comment on above: Result Comment: 3.3 - 4.4 LOW RISK 4.4 - 7.1 AVERAGE RISK 7.1 - 11.0 MODERATE RISK >11.0 HIGH RISK Performed By: #### C VDAGS #### [facility] [address] [place] [address] Dr. Ashlie Hills Cholesterol [Mass/Vol] 159 mg/dL Normal <=200 [facility] Comment on above: Performed By: #### C VDAGS #### [facility] [address] [address] [address] Ashlie Hills Cholesterol in HDL [Mass/Vol] 40 mg/dL Normal 40-60 [facility] Comment on above: Performed By: #### C VDAGS #### [facility] [address] [place] [address] Dr. Ashlie Hills Cholesterol in LDL [Mass/Vol] 81.8 mg/dL Normal [facility] Comment on above: Performed By: #### C VDAGS #### [facility] [address] [address] [address] Ashlie Hills Cholesterol.total/Chol esterol in HDL [Mass ratio] 4.0 {ratio} Normal [facility] Comment on above: Performed By: #### C VDAGS #### [facility] [address] [place] [address] Dr. Ashlie Hills HDL NORMAL > or = 60 mg/dl - LOW CARDIOVASCULAR RISK <40 mg/dl - HIGH CARDIOVASCULAR RISK Normal [facility] Comment on above: Performed By: #### C VDAGS #### [facility] [address] [place] [address] Dr. Ashlie Hills LDL CALC NORMAL SEE BELOW Normal [facility] Comment on above: Result Comment: <100 mg/dl OPTIMAL 100 - 129 mg/dl NEAR OR ABOVE OPTIMAL 130 - 159 mg/dl BORDERLINE HIGH 160 - 189 mg/dl HIGH >190 mg/dl VERY HIGH Performed By: #### C VDAGS #### [facility] [address] [address] [address] Ashlie Hills Triglyceride [Mass/Vol] 186 mg/dL Critically high <=150 [facility] Comment on above: Performed By: #### C VDAGS #### [facility] [address] [address] [address] Ashlie Hills VLDL CALC 37.2 mg/dL Normal [facility] Comment on above: Performed By: #### C VDAGS #### [facility] [address] [address] [address] Ashlie Hills RENAL FUNCTION PANELon 03-03 Albumin [Mass/Vol] 3.1 g/dL Critically low 3.4-5.0 [facility] Comment on above: Performed By: #### C BC #### [facility] [address] [address] [address] Ashlie Hills Calcium [Mass/Vol] 9.2 mg/dL Normal 8.5-10.1 [facility] Comment on above: Performed By: #### C BC #### [facility] [address] [address] [address] Ashlie Hills Chloride [Moles/Vol] 102 mmol/L Normal 98-107 [facility] Comment on above: Performed By: #### C BC #### [facility] [address] [address] [address] Ashlie Hills CO2 [Moles/Vol] 31.9 mmol/L Normal 21.0-32.0 [facility] Comment on above: Performed By: #### C BC #### [facility] [address] [address] [address] Ashlie Hills Creatinine [Mass/Vol] 0.68 mg/dL Normal 0.55-1.02 [facility] Comment on above: Performed By: #### C BC #### [facility] [address] [address] [address] Ashlie Hills EGFR-AF IRAQI >60 Normal >=60 [facility] Comment on above: Performed By: #### C BC #### [facility] [address] [address] [address] Ashlie Hills EGFR-NON AF IRAQI >60 Normal >=60 [facility] Comment on above: Performed By: #### C BC #### [facility] [address] [address] [address] Ashlie Hills Glucose [Mass/Vol] 131 mg/dL Critically high 74-106 T [facility] Comment on above: Performed By: #### C BC #### [facility] [address] [place] [address] Dr. Ashlie Hills Phosphate [Mass/Vol] 4.0 mg/dL Normal 2.6-4.7 [facility] Comment on above: Performed By: #### C BC #### [facility] [address] [place] [address] Dr. Ashlie Hills Potassium [Moles/Vol] 4.0 mmol/L Normal 3.5-5.1 [facility] Comment on above: Performed By: #### C BC #### [facility] [address] [place] [address] Dr. Ashlie Hills Sodium [Moles/Vol] 141 mmol/L Normal 136-145 [facility] Comment on above: Performed By: #### C BC #### [facility] [address] [address] [address] Ashlie Hills Urea nitrogen [Mass/Vol] 17.0 mg/dL Normal 7.0-18.0 [facility] Comment on above: Performed By: #### C BC #### [facility] [address] [place] [address] Dr. Ashlie Hills UA RANDOM W/MICROSCOPICon BACTERIA NONE SEEN Normal NONE SEEN [facility] Comment on above: Performed By: #### I NFLUAB #### [facility] [address] [place] [address] Dr. Ashlie Hills Bilirubin Ql (U) Negative Normal NEGATIVE [facility] Comment on above: Performed By: #### I NFLUAB #### [facility] [address] [address] [address] Ashlie Hills CAST NONE SEEN Normal NONE SEEN [facility] Comment on above: Performed By: #### I NFLUAB #### [facility] [address] [place] [address] Dr. Ashlie Hills Clarity (U) CLEAR Normal CLEAR [facility] Comment on above: Performed By: #### I NFLUAB #### [facility] [address] [place] [address] Dr. Ashlie Hills Color (U) YELLOW Normal YELLOW [facility] Comment on above: Performed By: #### I NFLUAB #### [facility] [address] [place] [address] Dr. Ashlie Hills Crystals LM Nom (Urine sed) NONE SEEN Normal NONE SEEN [facility] Comment on above: Performed By: #### I NFLUAB #### [facility] [address] [place] [address] Dr. Ashlie Hills Epithelial cells LM Ql (Urine sed) FEW Abnormal NONE SEEN /RARE [facility] Comment on above: Performed By: #### I NFLUAB #### [facility] [address] [place] [address] Dr. Ashlie Hills Glucose Ql (U) Negative Normal NEGATIVE [facility] Comment on above: Performed By: #### I NFLUAB #### [facility] [address] [place] [address] Dr. Ashlie Hills Hemoglobin Ql (U) Negative Normal NEGATIVE [facility] Comment on above: Performed By: #### I NFLUAB #### [facility] [address] [place] [address] Dr. Ashlie Hills Ketones Ql (U) Negative Normal NEGATIVE [facility] Comment on above: Performed By: #### I NFLUAB #### [facility] [address] [place] [address] Dr. Ashlie Hills LEUKOCYTES Negative Normal NEGATIVE [facility] Comment on above: Performed By: #### I NFLUAB #### [facility] [address] [place] [address] Dr. Ashlie Hills MUCOUS NONE SEEN Normal NONE SEEN [facility] Comment on above: Performed By: #### I NFLUAB #### [facility] [address] [place] [address] Dr. Ashlie Hills Nitrite Ql (U) Negative Normal NEGATIVE [facility] Comment on above: Performed By: #### I NFLUAB #### [facility] [address] [place] [address] Dr. Ashlie Hills pH (U) 5.5 [pH] Normal 5-9 [facility] Comment on above: Performed By: #### I NFLUAB #### [facility] [address] [place] [address] Dr. Ashlie Hills RBC 0-2 Normal 0-2 [facility] Comment on above: Performed By: #### I NFLUAB #### [facility] [address] [place] [address] Dr. Ashlie Hills SPEC GRAVITY >=1.030 Abnormal 1.005-<=1.025 [facility] Comment on above: Performed By: #### I NFLUAB #### [facility] [address] [place] [address] Dr. Ashlie Hills UA PROTEIN 100 mg/dl Abnormal NEGATIVE/ TRACE [facility] Comment on above: Performed By: #### I NFLUAB #### [facility] [address] [place] [address] Dr. Ashlie Hills Urobilinogen Qn (U) 0.2 {Little'U}/dL Normal 0.2 - 1. 0 [facility] Comment on above: Performed By: #### I NFLUAB #### [facility] [address] [place] [address] Dr. Ashlie Hills WBC NONE SEEN Normal NONE SEEN [facility] Comment on above: Performed By: #### I NFLUAB #### [facility] [address] [place], [place] [address] Dr. Ashlie Hills URIC ACID SERUMon 03-03-2022 Urate [Mass/Vol] 5.0 mg/dL Normal 2.6-6.0 [facility] Comment on above: Performed By: #### I NFLUAB #### [facility] [address] [place] [address] Dr. Ashlie Hills URINE T PROTEIN CREAT RATIOo n 03-03-2022 Protein (U) [Mass/Vol] 77.9 mg/dL Critically high <=12.0 [facility] Comment on above: Performed By: #### C VDAGS #### [facility] [address] [place] [address] Dr. Ashlie Hills UR PROT CREAT RAT 0.44 Normal [facility] Comment on above: Performed By: #### C VDAGS #### [facility] [address] [place] [address] Dr. Ashlie Hills URINE CREAT 175.15 mg/dL Normal 20.00-300.00 [facility] Comment on above: Performed By: #### C VDAGS #### [facility] [address] [place] [address] Dr. Ashlie Hills CULTURE URINEon 12-25-2021 CULTURE URINE Culture Observations: GREATER THAN TWO ORGANISMS PRESENT, HEAVILY MIXED. PLEASE RESUBMIT CLEAN CATCH MID-STREAM URINE IF CLINICALLY INDICATED. Normal [facility] Comment on above: Performed By: #### I NFLUAB #### [facility] [address] [place] [address] Dr. Ashlie Hills CBC AUTO DIFFon 12-24-2021 BASO # 0.1 103/ul Normal 0.0-0.1 [facility] Comment on above: Performed By: #### C BC #### [facility] [address] [place] [address] Dr. Ashlie Hills Basophils/100 WBC (Bld) 0.5 % Normal 0.2-2.0 [facility] Comment on above: Performed By: #### C BC #### [facility] [address] [place] [address] Dr. Ashlie Hills EO # 0.4 103/ul Normal 0.0-0.7 [facility] Comment on above: Performed By: #### C BC #### [facility] [address] [place] [address] Dr. Ashlie Hills Eosinophils/100 WBC (Bld) 2.4 % Normal 0.9-7.0 [facility] Comment on above: Performed By: #### C BC #### [facility] [address] [place] [address] Dr. Ashlie Hills Erythrocyte distribution width (RBC) [Ratio] 14.1 % Normal 11.0-15.0 [facility] Comment on above: Performed By: #### C BC #### [facility] [address] [place] [address] Dr. Ashlie Hills Hematocrit (Bld) [Volume fraction] 55.9 % Critically high 36.0-48.0 [facility] Comment on above: Performed By: #### C BC #### [facility] [address] [place] [address] Dr. Ashlie Hills Hemoglobin (Bld) [Mass/Vol] 17.9 g/dL Critically high 12.0-16.0 [facility] Comment on above: Performed By: #### C BC #### [facility] [address] [place] [address] Dr. Ashlie Hills IG # 0.06 10e3/ul Critically high 0.00-0.03 [facility] Comment on above: Performed By: #### C BC #### [facility] [address] [place] [address] Dr. Ashlie Hills IG % 0.4 % Normal 0.0-0.5 [facility] Comment on above: Performed By: #### C BC #### [facility] [address] [place] [address] Dr. Ashlie Hills LYMPH # 5.8 103/ul Critically high 1.2-3.8 [facility] Comment on above: Performed By: #### C BC #### [facility] [address] [place] [address] Dr. Ashlie Hills Lymphocytes/100 WBC (Bld) 35.4 % Normal 20.5-60.0 [facility] Comment on above: Performed By: #### C BC #### [facility] [address] [place] [address] Dr. Ashlie Hills MANUAL DIFF REQ NO Normal [facility] Comment on above: Performed By: #### C BC #### [facility] [address] [place] [address] Dr. Ashlie Hills MCH (RBC) [Entitic mass] 29.4 pg Normal 26.7-34.0 [facility] Comment on above: Performed By: #### C BC #### [facility] [address] [place] [address] Dr. Ashlie Hills MCHC (RBC) [Mass/Vol] 32.0 g/dL Normal 29.9-35.2 [facility] Comment on above: Performed By: #### C BC #### [facility] [address] [place] [address] Dr. Ashlie Hills MCV (RBC) [Entitic vol] 91.8 fL Normal 81.0-99.0 [facility] Comment on above: Performed By: #### C BC #### [facility] [address] [place] [address] Dr. Ashlie Hills MONO # 0.8 103/ul Normal 0.3-0.8 [facility] Comment on above: Performed By: #### C BC #### [facility] [address] [place] [address] Dr. Ashlie Hills Monocytes/100 WBC (Bld) 4.8 % Normal 1.7-12.0 [facility] Comment on above: Performed By: #### C BC #### [facility] [address] [place] [address] Dr. Ashlie Hills NEUT # 9.3 103/ul Critically high 1.4-6.5 [facility] Comment on above: Performed By: #### C BC #### [facility] [address] [place] [address] Dr. Ashlie Hills Neutrophils/100 WBC (Bld) 56.5 % Normal 43.0-75.0 [facility] Comment on above: Performed By: #### C BC #### [facility] [address] [address] [address] Ashlie Hills Platelet mean volume (Bld) [Entitic vol] 12.9 fL Normal 9.5-13.5 [facility] Comment on above: Performed By: #### C BC #### [facility] [address] [address] [address] Ashlie Hills PLT 127 103/ul Critically low 150-450 [facility] Comment on above: Performed By: #### C BC #### [facility] [address] [address] [address] Ashlie Hills RBC 6.09 106/ul Critically high 4.20-5.40 [facility] Comment on above: Performed By: #### C BC #### [facility] [address] [place] [address] Dr. Ashlie Hills WBC 16.4 103/ul Critically high 4.0-11.0 [facility] Comment on above: Performed By: #### C BC #### [facility] [address] [place] [address] ABD/PELVIS WO CONon [...] (U) Negative Normal NEGATIVE [facility] Comment on above: Performed By: #### E EVONNE LYMAN #### [facility] [address] [place], [place] [address] Dr. Ashlie Hills Clarity (U) CLEAR Normal CLEAR [facility] Comment on above: Performed By: #### E MADELINE LYMANRO #### [facility] [address] [place], [place] [address] Dr. Ashlie Hills Color (U) DK. ORANGE Abnormal YELLOW [facility] Comment on above: Performed By: #### E NURA, UMICRO #### [facility] [address] [place] [address] Dr. Ashlie HOBBS A micrscopic examination will be performed if indicated. Normal [facility] Comment on above: Performed By: #### E RUR, UMICRO #### [facility] [address] [place] [address] Dr. Ashlie Hills Glucose Ql (U) 250 mg/dl Abnormal NEGATIVE [facility] Comment on above: Performed By: #### E RUR, UMICRO #### [facility] [address] [place] [address] Dr. Ashlie Hills Hemoglobin Ql (U) Negative Normal NEGATIVE [facility] Comment on above: Performed By: #### E RUMahnaz, UMICRO #### [facility] [address] [place] [address] Dr. Ashlie Hills Ketones Ql (U) Negative Normal NEGATIVE [facility] Comment on above: Performed By: #### Tracey LYMAN UMICRO #### [facility] [address] [place] [address] Dr. Ashlie Hills LEUKOCYTES Negative Normal NEGATIVE [facility] Comment on above: Performed By: #### Tracey LYMAN, UMICRO #### [facility] [address] [place] [address] Dr. Ashlie Hills Nitrite Ql (U) Negative Normal NEGATIVE [facility] Comment on above: Performed By: #### Tracey RUMahnaz, UMICRO #### [facility] [address] [place] [address] Dr. Ashlie Hills pH (U) 5.0 [pH] Normal 5-9 [facility] Comment on above: Performed By: #### Tracey LYMAN, UMICRO #### [facility] [address] [place] [address] Dr. Ashlie Hills Protein (U) [Mass/Vol] 100 mg/dL Abnormal NEGAT YURY/ TRACE [facility] Comment on above: Performed By: #### E NURA UMICRO #### [facility] [address] [place] [address] Dr. Ashlie Hills SPEC GRAVITY >=1.030 Abnormal 1.005-<=1.025 [facility] Comment on above: Performed By: #### E MADELINE LYMANRO #### [facility] [address] [place] [address] Dr. Ashlie Hills UR MICRO IND INDICATED Normal [facility] Comment on above: Performed By: #### MADELINE DIAZRO #### [facility] [address] [place] [address] Dr. Ashlie Hills Urobilinogen Qn (U) 1.0 {Little'U}/dL Normal 0.2 - 1. 0 [facility] Comment on above: Performed By: #### Tracey LYMAN HARRIETRO #### [facility] [address] [place] [address] Dr. Ashlie Hills PROF CHEM 8 (BAS METB)on Anion gap [Moles/Vol] 12.1 mmol/L Normal [facility] Comment on above: Performed By: #### I NFLUAB #### [facility] [address] [place] [address] Dr. Ashlie Hills Calcium [Mass/Vol] 9.0 mg/dL Normal 8.5-10.1 [facility] Comment on above: Performed By: #### I NFLUAB #### [facility] [address] [place] [address] Dr. Ashlie Hills Chloride [Moles/Vol] 101 mmol/L Normal 98-107 [facility] Comment on above: Performed By: #### I NFLUAB #### [facility] [address] [place] [address] Dr. Ashlie Hills CO2 [Moles/Vol] 29.1 mmol/L Normal 21.0-32.0 [facility] Comment on above: Performed By: #### I NFLUAB #### [facility] [address] [place] [address] Dr. Ashlie Hills Creatinine [Mass/Vol] 0.86 mg/dL Normal 0.55-1.02 [facility] Comment on above: Performed By: #### I NFLUAB #### [facility] [address] [address] [address] Ashlie Hills EGFR-AF IRAQI >60 Normal >=60 [facility] Comment on above: Performed By: #### I NFLUAB #### [facility] [address] [address] [address] Ashlie Hills EGFR-NON AF IRAQI >60 Normal >=60 [facility] Comment on above: Performed By: #### I NFLUAB #### [facility] [address] [address] [address] Ashlie Hills Glucose [Mass/Vol] 236 mg/dL Critically high 74-106 [facility] Comment on above: Performed By: #### I NFLUAB #### [facility] [address] [address] [address] Ashlie Hills Potassium [Moles/Vol] 4.2 mmol/L Normal 3.5-5.1 [facility] Comment on above: Performed By: #### I NFLUAB #### [facility] [address] [address] [address] Ashlie Hills Sodium [Moles/Vol] 138 mmol/L Normal 136-145 [facility] Comment on above: Performed By: #### I NFLUAB #### [facility] [address] [address] [address] Ashlie Hills Urea nitrogen [Mass/Vol] 11.0 mg/dL Normal 7.0-18.0 [facility] Comment on above: Performed By: #### I NFLUAB #### [facility] [address] [address] [address] Ashlie Hills Urea nitrogen/Creatinine [Mass ratio] 12.8 mg/mg Normal [facility] Comment on above: Performed By: #### I NFLUAB #### [facility] [address] [address] [address] Ashlie Hills URINE MICROSCOPIC ONLYon BACTERIA SMALL Abnormal NONE SEEN [facility] Comment on above: Performed By: #### E JIMMYR, UMICRO #### [facility] [address] [place] [address] Dr. Ashlie Hills Bacteria identified Cx Nom (U) INDICATED Normal [facility] Comment on above: Performed By: #### E RUR, UMICRO #### [facility] [address] [place] [address] Dr. Ashlie Hills CAST NONE SEEN Normal NONE SEEN [facility] Comment on above: Performed By: #### E RUR, UMICRO #### [facility] [address] [place] [address] Dr. Ashlie Hills Crystals LM Nom (Urine sed) NONE SEEN Normal NONE SEEN [facility] Comment on above: Performed By: #### E RUR, UMICRO #### [facility] [address] [place] [address] Dr. Ashlie Hills Epithelial cells LM Ql (Urine sed) MODERATE Abnormal NONE SEEN /RARE [facility] Comment on above: Performed By: #### Tracey LYMAN, UMICRO #### [facility] [address] [place] [address] Dr. Ashlie Hills MUCOUS NONE SEEN Normal NONE SEEN [facility] Comment on above: Performed By: #### Tracey LYMAN, UMICRO #### [facility] [address] [place] [address] Dr. Ashlie Hills RBC 0-2 Normal 0-2 [facility] Comment on above: Performed By: #### Tracey LYMAN UMICRO #### [facility] [address] [place] [address] Dr. Ashlie Hills WBC 0-2 Abnormal NONE SEEN [facility] Comment on above: Performed By: #### Tracey LYMAN UMICRO #### [facility] [address] [place] [address] Dr. Ahslie Hills YEAST PRESENT Abnormal NONE SEEN [facility] Comment on above: Performed By: #### Tracey RUMahnaz, UMICRO #### [facility] [address] [place] [address] Dr. Ashile Hills HIP RIGHT 1 OR 2 VWS WITH PE LVISon 07-20-2020 HIP RIGHT 1 OR 2 VWS WITH PELVIS [facility] Department of Radiology [address] [place] [address] Patient Name: MITZI MACIAS : [...] MRI. Electronically signed: Pipo Acevedo. Transcribed by: [id number], User Resident: Electronically Signed by: PIPO ACEVEDO @ 07/20/2020 03:45 PM Normal [facility] Comment on above: Order Comment: evalu ate Vital Signs Date Time Vital Sign Value Performing Clinician Facility 01-29-2025 09:48-0400 Body height 170.2 cm Rain Souza MD Work Phone: [facility] 01-29-2025 09:48-0400 Body mass index (BMI) [Ratio] 56.38 kg/m2 Rain Souza MD Work Phone: [facility] 01-29-2025 09:48-0400 Body weight 163.29 kg Rain Souza MD Work Phone: [facility] 01-29-2025 09:48-0400 Diastolic blood pressure 70 mm[Hg] Rain Souza MD Work Phone: [facility] 01-29-2025 09:48-0400 Heart rate 72 /min Rain Souza MD Work Phone: [facility] 01-29-2025 09:48-0400 Respiratory rate 16 /min Rain Souza MD Work Phone: [facility] 01-29-2025 09:48-0400 SaO2% (BldA) [Mass fraction] 84 % Rain Souza MD Work Phone: [facility] 01-29-2025 09:48-0400 Systolic blood pressure 130 mm[Hg] Rain Souza MD Work Phone: [facility] 01-26-2025 18:11-0400 Body mass index (BMI) [Ratio] 58.64 kg/m2 Mckayla Blas [employer] Work Phone: [facility] 01-26-2025 18:11-0400 Body temperature 98.49 [degF] Mckayla Blas [employer] Work Phone: [facility] 01-26-2025 18:11-0400 Body weight 169.83 kg Mckayla Blas [employer] Work Phone: [facility] 01-26-2025 18:11-0400 Diastolic blood pressure 82 mm[Hg] Mckayla Blas [employer] Work Phone: [facility] 01-26-2025 18:11-0400 Heart rate 81 /min Mckayla Aichholz [employer] Work Phone: [facility] 01-26-2025 18:11-0400 Respiratory rate 20 /min Mckayla Aichholz [employer] Work Phone: [facility] 01-26-2025 18:11-0400 SaO2% (BldA) [Mass fraction] 90 % Mckayla Aichholz [employer] Work Phone: [facility] 01-26-2025 18:11-0400 Systolic blood pressure 126 mm[Hg] Mckayla Aichholz [employer] Work Phone: [facility] 12-09-2024 10:19-0400 Body temperature 98.01 [degF] Mckayla Aichholz [employer] Work Phone: [facility] 12-09-2024 10:19-0400 Diastolic blood pressure 76 mm[Hg] Mckayla Aichholz [employer] Work Phone: [facility] 12-09-2024 10:19-0400 Heart rate 71 /min Mckayla Aichholz [employer] Work Phone: [facility] 12-09-2024 10:19-0400 Respiratory rate 20 /min Mckayla Aichholz [employer] Work Phone: [facility] 12-09-2024 10:19-0400 SaO2% (BldA) [Mass fraction] 88 % Mckayla Aichholz [employer] Work Phone: [facility] 12-09-2024 10:19-0400 Systolic blood pressure 150 mm[Hg] Mckayla Aichholz [employer] Work Phone: [facility] 10-27-2024 14:11-0400 Body height 170.2 cm Mckayla Aichholz [employer] Work Phone: [facility] 10-27-2024 14:11-0400 Body mass index (BMI) [Ratio] 56.51 kg/m2 Mckayla Aichholz [employer] Work Phone: [facility] 10-27-2024 14:11-0400 Body temperature 98.71 [degF] Mckayla Blas [employer] Work Phone: [facility] 10-27-2024 14:11-0400 Body weight 163.66 kg Mckayla Blas [employer] Work Phone: [facility] 10-27-2024 14:11-0400 Diastolic blood pressure 74 mm[Hg] Mckayla Blas [employer] Work Phone: [facility] 10-27-2024 14:11-0400 Heart rate 75 /min Mckayla Blas [employer] Work Phone: [facility] 10-27-2024 14:11-0400 Respiratory rate 18 /min Mckayla Blas [employer] Work Phone: [facility] 10-27-2024 14:11-0400 SaO2% (BldA) [Mass fraction] 90 % Mckayla Blas [employer] Work Phone: [facility] 10-27-2024 14:11-0400 Systolic blood pressure 132 mm[Hg] Mckayla Blas [employer] Work Phone: [facility] 10-08-2024 11:21-0400 Body height 170.2 cm Rain Souza MD Work Phone: [facility] 10-08-2024 11:21-0400 Body mass index (BMI) [Ratio] 55.91 kg/m2 Rain Souza MD Work Phone: [facility] 10-08-2024 11:21-0400 Body weight 161.93 kg Rain Souza MD Work Phone: [facility] 10-08-2024 11:21-0400 Diastolic blood pressure 70 mm[Hg] Rain Souza MD Work Phone: [facility] 10-08-2024 11:21-0400 Heart rate 70 /min Rain Souza MD Work Phone: [facility] 10-08-2024 11:21-0400 Respiratory rate 16 /min Rain Souza MD Work Phone: [facility] 10-08-2024 11:21-0400 SaO2% (BldA) [Mass fraction] 91 % Rain Souza MD Work Phone: [facility] 10-08-2024 11:21-0400 Systolic blood pressure 130 mm[Hg] Rain Souza MD Work Phone: [facility] 08-27-2024 17:44-0500 Body mass index (BMI) [Ratio] 57.31 kg/m2 Mckayla Aichholz [employer] Work Phone: [facility] 08-27-2024 17:44-0500 Body temperature 98.01 [degF] Mckayla Aichholz [employer] Work Phone: [facility] 08-27-2024 17:44-0500 Body weight 165.97 kg Mckayla Aichholz [employer] Work Phone: [facility] 08-27-2024 17:44-0500 Diastolic blood pressure 76 mm[Hg] Mckayla Aichholz [employer] Work Phone: [facility] 08-27-2024 17:44-0500 Heart rate 83 /min Mckayla Aichholz [employer] Work Phone: [facility] 08-27-2024 17:44-0500 Respiratory rate 18 /min Mckayla Aichholz [employer] Work Phone: [facility] 08-27-2024 17:44-0500 SaO2% (BldA) [Mass fraction] 91 % Mckayla Aichholz [employer] Work Phone: [facility] 08-27-2024 17:44-0500 Systolic blood pressure 134 mm[Hg] Mckayla Aichholz [employer] Work Phone: [facility] 06-11-2024 10:00-0500 Blood Pressure Location Elbert ARAUZ [facility] 06-11-2024 10:00-0500 Diastolic blood pressure 68 mm[Hg] Elbert ARAUZ [facility] 06-11-2024 10:00-0500 Heart rate 76 /min Elbert ARAUZ [facility] 06-11-2024 10:00-0500 Systolic blood pressure 132 mm[Hg] Elbert ARAUZ [facility] 05-27-2024 10:20-0500 Body height 170.2 cm Rain Souza MD Work Phone: [facility] 05-27-2024 10:20-0500 Body mass index (BMI) [Ratio] 56.7 kg/m2 Rain Souza MD Work Phone: [facility] 05-27-2024 10:20-0500 Body weight 164.2 kg Rain Souza MD Work Phone: [facility] 05-27-2024 10:20-0500 Diastolic blood pressure 66 mm[Hg] Rain Souza MD Work Phone: [facility] 05-27-2024 10:20-0500 Heart rate 72 /min Rain Souza MD Work Phone: [facility] 05-27-2024 10:20-0500 Respiratory rate 16 /min Rain Souza MD Work Phone: [facility] 05-27-2024 10:20-0500 Systolic blood pressure 128 mm[Hg] Rain Souza MD Work Phone: [facility] 04-14-2024 10:27-0400 Body height 165.1 cm Mckayla Blas NP Work Phone: [facility] 04-14-2024 10:27-0400 Body mass index (BMI) [Ratio] 61.01 kg/m2 Mckayla Blas NP Work Phone: [facility] 04-14-2024 10:27-0400 Body temperature 98.49 [degF] Mckayla Blas [employer] Work Phone: [facility] 04-14-2024 10:27-0400 Body weight 166.29 kg Mckayla Blas [employer] Work Phone: [facility] 04-14-2024 10:27-0400 Diastolic blood pressure 80 mm[Hg] Mckayla Blas [employer] Work Phone: [facility] 04-14-2024 10:27-0400 Heart rate 77 /min Mckaylajuvenal Rosenbergz [employer] Work Phone: [facility] 04-14-2024 10:27-0400 Respiratory rate 19 /min Mckayla Blas [employer] Work Phone: [facility] 04-14-2024 10:27-0400 SaO2% (BldA) [Mass fraction] 92 % Mckayla Blas [employer] Work Phone: [facility] 04-14-2024 10:27-0400 Systolic blood pressure 116 mm[Hg] Mckayla Blas [employer] Work Phone: [facility] 03-08-2022 15:00-0400 Body height 170.18 cm Stephanie Tico Other [employer] Other 03-08-2022 15:00-0400 Body temperature 97.6 [degF] Stephanie Tico Other [facility] Other 03-08-2022 15:00-0400 Diastolic blood pressure 72 mm[Hg] Stephanie Tico Other [facility] Other 03-08-2022 15:00-0400 Respiratory rate 20 /min Stephanie Tico Other [facility] Other 03-08-2022 15:00-0400 SaO2% (BldA) [Mass fraction] 91 % Stephanie Tico Other [facility] Other 03-08-2022 15:00-0400 Systolic blood pressure 131 mm[Hg] Stephanie Tico Other [facility] Other 02-20-2022 09:20-0400 Body height 170.18 cm Stephanie Tico Other [facility] Other 02-20-2022 09:20-0400 Body temperature 96.5 [degF] Stephanie Tico Other [facility] Other 02-20-2022 09:20-0400 Diastolic blood pressure 69 mm[Hg] Stephanie Tico Other [facility] Other 02-20-2022 09:20-0400 Respiratory rate 20 /min Stephanie Tico Other [facility] Other 02-20-2022 09:20-0400 SaO2% (BldA) [Mass fraction] 91 % Stephanie Tico Other [facility] Other 02-20-2022 09:20-0400 Systolic blood pressure 129 mm[Hg] Stephanie Tico Other [facility] Other 02-06-2022 10:24-0400 Blood Pressure Location Elbert ARAUZ [facility] 02-06-2022 10:24-0400 Diastolic blood pressure 76 mm[Hg] Elbert ARAUZ [facility] 02-06-2022 10:24-0400 Heart rate 70 /min Elbert ARAUZ [facility] 02-06-2022 10:24-0400 Respiratory rate 16 /min Elbert ARAUZ [facility] 02-06-2022 10:24-0400 Systolic blood pressure 134 mm[Hg] Elbert ARAUZ [facility] Encounters Encounter Date Encounter Type Care Provider Facility Start: 03-12-2025 ambulatory Flynn BAEZM F acility:[facility] Start: 03-11-2025 End: 03-11-2025 ambulatory Flynn BAEZM Facility:[facility] Start: 03-09-2025 End: 03-09-2025 Refill Mckayla Blas NP Work Phone: [facility] Comment on above: Tobacco user; Encounter for smoking cessation counseling Start: 01-29-2025 End: 01-29-2025 Diana flowsheet Rain Souza MD Work Phone: [facility] Start: 01-29-2025 End: 01-29-2025 Bamboo flowsheet Rain Souza MD Work Phone: [facility] Start: 01-29-2025 End: 01-29-2025 Clinisync Result Encounter Generic External Data Provider [facility] External Department Unsolicited Start: 01-29-2025 End: 01-29-2025 ambulatory RAIN SOUZA Not Available Start: 01-29-2025 End: 01-29-2025 Office outpatient visit 25 minutes Rain Souza MD Work Phone: [facility] Comment on above: Encounter for dietar y consultation (Primary Dx); Type 2 diabetes mellitus with hyperglycemia, with long-term current use of insulin (HCC); Vitamin D deficiency; Primary hypertension ; Insulin long-term use (HCC); Hyperlipemia, mixed ; Microalbuminuria; Class 3 severe obesity due to excess calories with serious comorbidity and body mass index (BMI) of 50.0 to 59.9 in adult ([facility]) Start: 01-26-2025 End: 01-26-2025 ambulatory MCKAYLA BLAS Not Available Start: 01-26-2025 End: 01-26-2025 Patient encounter procedure Mckayla Blas [employer] Work Phone: [facility] Comment on above: Encounter for subseq [...] type (HCC); Moderate persistent asthma without complication ([facility]); Insomnia; Non-seasonal allergic rhinitis, unspecified trigger; Type 2 diabetes mellitus with unspecified complications (HCC); Anxiety and depression ; Antibiotic-induced yeast infection; Chronic obstructive pulmonary disease, unspecified (HCC); Hyperlipidemia, unspecified ; Vaginal yeast infection; Morbid (severe) obesity due to excess calories ([facility]) Start: 01-06-2025 End: 01-06-2025 ambulatory [facility] Start: 12-18-2024 End: 12-19-2024 Refill Mckayla Blas [employer] Work Phone: [facility] Comment on above: Hyperlipidemia, unsp ecified ; Tobacco user; Encounter for smoking cessation counseling Start: 12-09-2024 End: 12-09-2024 Bamboo flowsheet Mckayla Blas [employer] Work Phone: [facility] Start: 12-09-2024 End: 12-09-2024 Bamboo flowsheet Mckayla Blas [employer] Work Phone: [facility] Start: 12-09-2024 End: 12-09-2024 ambulatory MCKAYLA AICHHOLZ Not Available Start: 12-09-2024 End: 12-09-2024 Office outpatient visit 25 minutes Mckayla Blas [employer] Work Phone: [facility] Comment on above: Cellulitis of left [...] Office outpatient visit 25 minutes Mckayla Blas [employer] Work Phone: [facility] Comment on above: Primary hypertension (CMS/HCC) [...] 10-21-2024 Refill Mckayla Blas NP Work Phone: [facility] Comment on above: Chronic obstructive pulmonary disease, unspecified Start: 10-08-2024 End: 10-08-2024 Clinisync Result Encounter Mckayla Patriciadallin SCHAEFER Work Phone: [facility] External Department Unsolicited Start: 10-08-2024 End: 10-08-2024 Clinisync Result Encounter Mckayla Patriciadallin SCHAEFER Work Phone: [facility] External Department Unsolicited Start: 10-08-2024 End: 10-08-2024 [...] minutes Mckayla Blas NP Work Phone: [facility] Comment on above: Anxiety and depressi [...] complication, with long-term current use of insulin ([facility]); Tobacco user; Mixed hyperlipidemia (CMS/[facility]); Gout, unspecified cause, unspecified chronicity, unspecified site; Vitamin deficiency; Gastro-esophageal reflux disease without esophagitis; Edema, unspecified; Edema; Hyperlipidemia, unspecified (CMS/HCC); Encounter for smoking cessation counseling; Venous ulcer of right leg ([facility]); Antibiotic-induced yeast infection Start: 08-27-2024 End: 08-27-2024 ambulatory MCKAYLA BLAS Not Available Start: 08-27-2024 End: 08-27-2024 Clinisync Result Encounter Generic External Data Provider [facility] External Department Unsolicited Start: 08-27-2024 End: 08-27-2024 Clinisync Result Encounter Generic External Data Provider [facility] External Department Unsolicited Start: 08-08-2024 End: 08-08-2024 ambulatory [facility] Start: 07-17-2024 End: 07-17-2024 Refill Mckayla Blas [employer] Work Phone: [facility] Start: 07-14-2024 End: 07-14-2024 Office outpatient visit 25 minutes Mckayla Blas NP Work Phone: [facility] Comment on above: Primary hypertension ([facility]/HCC) (Primary Dx); Diabetic polyneuropathy associated with type 2 diabetes mellitus ([facility]); Pulmonary emphysema, unspecified emphysema type ([facility]); Critical limb ischemia of right lower extremity ([facility]); PAD (peripheral artery disease) ([facility]); Gastroesophageal reflux disease, unspecified whether esophagitis present; Bilateral lower extremity edema; Venous ulcer of right leg ([facility]/HCC); Type 2 diabetes mellitus with complication, with long-term current use of insulin ([facility]); Tobacco user; Encounter for smoking cessation counseling; Kidney stone; Adrenal mass 1 cm to 4 cm in diameter ([facility]/HCC); Radiculopathy, lumbar region; Non-seasonal allergic rhinitis, unspecified trigger; Type 2 diabetes mellitus with unspecified complications ([facility]) Start: 07-14-2024 End: 07-14-2024 ambulatory MCKAYLA BLAS Not Available Start: 07-05-2024 End: 07-07-2024 Refill Mckayla Harshaddallin [employer] Work Phone: [facility] Comment on above: Bilateral lower extr emity edema Start: 06-11-2024 ambulatory Elbert ARAUZ Rock ty:SHEA [place] Start: 06-11-2024 End: 06-11-2024 Patient encounter procedure Elbert ARAUZ [facility] [place] Start: 05-27-2024 End: 05-27-2024 Bamboo flowsheet Rain Souza MD Work Phone: [facility] Start: 05-27-2024 End: 05-27-2024 Bamboo flowsheet Rian Souza MD Work Phone: [facility] Start: 05-27-2024 End: 05-27-2024 ambulatory RAIN SOUZA Not Available Start: 05-27-2024 End: 05-27-2024 Office outpatient visit 25 minutes Rain Souza MD Work Phone: [facility] Comment on above: Type 2 diabetes asiya itus with hyperglycemia, with long-term current use of insulin ([facility]) (Primary Dx); Encounter for dietary consultation; Vitamin D deficiency; Primary hypertension ([facility]); Insulin long-term use ([facility]); Hyperlipemia, mixed (CMS/[facility]); Microalbuminuria; Class 3 severe obesity due [...] 04-14-2024 End: 04-14-2024 Bamboo flowsheet Mckayla Aichholz [employer] Work Phone: [facility] Start: 04-14-2024 End: 04-14-2024 Bamboo flowsheet Mckayla Aichholz [employer] Work Phone: [facility] Start: 04-14-2024 End: 04-14-2024 Office outpatient visit 25 minutes Mckayla Chetz [employer] Work Phone: [facility] Comment on above: Primary hypertension [...] Start: 04-05-2024 End: 04-06-2024 Refill Mckayla Aichholz [employer] Work Phone: [facility] Comment on above: Hyperlipidemia, unsp ecified (CMS/HCC); Bilateral lower extremity edema Vitamin D deficiency , unspecified Start: 01-17-2024 Patient encounter procedure Rain Souza MD Work Phone: [facility] Start: 08-17-2023 Refill Mckayla Aichholz [employer] Work Phone: [facility] Comment on above: Vaginal yeast infect ion (Primary Dx) Start: 08-14-2023 Refill Mckayla Aichholz [employer] Work Phone: [facility] Comment on above: Type 2 diabetes asiya itus with unspecified complications (CMS/HCC); Edema, unspecified; Edema Start: 12-05-2022 ambulatory NARENDRANATH LAKSHMIPATHY . Facility:[facility] Start: 12-05-2022 End: 12-06-2022 Evaluation and management of inpatient UMBERTO CANTU . Facility:[facility] Start: 11-23-2022 End: 11-23-2022 ambulatory SAYDA PATRICIARAVIJuanis Facility:[facility] Start: 11-22-2022 End: 11-23-2022 ambulatory SAYDA ASENCIO LARACayetanoRAVIJuanis Facility:[facility] Start: 11-17-2022 End: 11-18-2022 ambulatory SUBHASH GASPAR . Facility:[facility] Start: 11-15-2022 End: 11-15-2022 Patient encounter procedure SARAH VEGA [facility] Start: 10-05-2022 End: 10-05-2022 ambulatory MARIANO BLAKE . Facility:[facility] Start: 09-21-2022 End: 09-21-2022 ambulatory SAYDA PATRICIARAVIJuanis Facility:[facility] Start: 09-14-2022 ambulatory RAFAEL ROLAN Facilit y:[facility] Start: 08-24-2022 End: 2022 ambulatory [...] 03-08-2022 End: 03-08-2022 ambulatory Stephanie Tico Other [employer] Other Start: 03-08-2022 Office outpatient vi sit 15 minutes Stephanie Tico [facility] Start: 03-03-2022 End: 03-04-2022 ambulatory SAYDA BLAS Facility:[facility] Start: 02-20-2022 End: 02-20-2022 ambulatory Stephanie Tico Other [employer] Other Start: 02-20-2022 Office outpatient ne w 45 minutes Stephanie Tico [facility] Start: 02-06-2022 End: 02-06-2022 Patient encounter procedure Elbert ARAUZ [facility] Start: 01-19-2022 End: 01-20-2022 ambulatory GILSONA RODRIGUEZIS . Facility: Start: 12-24-2021 End: 12-24-2021 ambulatory OLE RAMIREZ Facility: Start: 08-26-2020 End: 09-10-2020 Patient encounter procedure MARY GABINOLOS Facility:[facility] Start: 10-30-2019 End: 10-30-2019 Emergency department patient visit [facility] Start: 10-30-2019 End: 10-30-2019 Emergency department patient visit [facility] Start: 11-02-2016 Preoperative state Stephanie Tico Other [employer] Other Procedures Date Procedure Procedure Detail Performing [...] Rain Souza MD Work Phone: Start: 10-08-2024 [facility] UA (CLEAN/CATCH) MICROSCOPIC IF INDICATE Mckayla Blas NP Work Phone: Start: 08-27-2024 ALL CBC WITH AUTO DIFF Generic External Data Provider Start: 05-27-2024 Gluc bld gluc mntr d ev cleared fda spec home use Rain Souza MD Work Phone: Start: 05-12-2024 [facility] CREATININE Generic External Data Provider Start: 12-14-2023 Mammography Rain urena MD Work Phone: Start: 11-22-2022 Mammography Mckayla clifford [employer] Work Phone: Start: 10-08-2015 Microscopic observat ion [Identifier] in Cervix by Cyto stain Mckayla Blas [employer] Work Phone: H/O: hysterectomy Elbert TIKA LARA Laparoscopic cholecystectomy Elbert ARAUZ Operative procedure on foot Elbert ARAUZ Plan of Treatment Date Care Activity Detail Author Start: 02-01-2026 End: 02-01-2026 Patient encounter procedure [facility] Start: 01-26-2026 Medicare Annual Wellness (AWV) Medicare Annual Wellness (AWV) [facility] Start: 10-08-2025 Urine screening for protein Diabetes: Urine Protein Screening [facility] Start: 08-03-2025 Screening for malignant neoplasm of colon [facility] Start: 07-14-2025 Glaucoma screening Diabetes: R etinopathy Screening [facility] Start: 05-28-2025 End: 05-28-2025 Patient encounter procedure [facility] Start: 05-13-2025 Glaucoma screening Diabetes: R etinopathy Screening [facility] Start: 05-01-2025 Hemoglobin A1c measurement Diabetes: Hemoglobin A1C [facility] Start: 04-29-2025 End: 04-29-2025 Patient encounter procedure [facility] Start: 03-09-2025 Influenza vaccination [facility] Start: 01-28-2025 End: 01-28-2025 Patient encounter procedure 01/28/2025 10:50 AM EDT Office Visit [facility] [address] [place] [address] Rain Souza MD [address] [place] [address] [facility] Start: 01-26-2025 End: 01-26-2025 Patient encounter procedure 01/26/2025 6:00 PM EDT Office Visit [facility] [address] [place] [phone] Mckayla Blas NP [address] [place] [phone] [facility] Start: 01-16-2025 Medicare Annual Wellness (AWV) Medicare Annual Wellness (AWV) [facility] Start: 01-07-2025 Hemoglobin A1c measurement Diabetes: Hemoglobin A1C [facility] Start: 12-15-2024 End: 12-27-2025 MG Breast - bilateral Screening Bilateral screening mammogram Imaging Routine Encounter for screening mammogram for malignant neoplasm of breast Expected: 12/15/2024 (Approximate), Expires: 12/27/2025 [facility] Work Phone: Comment on above: Expected: 12/15/2024 (Approximate), Expires: 12/27/2025 Start: 12-13-2024 Screening for malignant neoplasm of breast Mammogram [facility] Start: 11-11-2024 Urine screening for protein Diabetes: Urine Protein Screening [facility] Start: 10-27-2024 End: 10-27-2024 Patient encounter procedure 10/27/2024 2:00 PM EDT Office Visit [facility] [address] [place] [phone] Mckayla Blas, SILVANO [address] [place] [phone] [facility] Start: 10-08-2024 End: 10-08-2024 Patient encounter procedure 10/08/2024 11:20 AM EDT Office Visit [facility] [address] [place] [address] Rain Souza MD [address] [place] [address] [facility] Start: 08-27-2024 End: 08-27-2024 Patient encounter procedure 08/27/2024 5:30 PM EST Office Visit [facility] [address] [place] [address] Mckayla Blas, [employer] [address] [place] [address] [facility] Start: 08-27-2024 End: 08-27-2025 25-hydroxyvitamin D3 [Mass/volume] in Serum or Plasma Vitamin D 25 hydroxy Lab Routine Vitamin deficiency Expected: 08/27/2024 (Approximate), Expires: 08/27/2025 [facility] Comment on above: Expected: 08/27/2024 (Approximate), Expires: 08/27/2025 Start: 08-27-2024 Hemoglobin A1c measurement Diabetes: Hemoglobin A1C [facility] Start: 08-27-2024 End: 08-27-2025 Hepatic function 2000 panel - Serum or Plasma Hepatic function panel Lab Routine Hyperlipidemia, unspecified (CMS/HCC) Expected: 08/27/2024 (Approximate), Expires: 08/27/2025 [facility] Comment on above: Expected: 08/27/2024 (Approximate), Expires: 08/27/2025 Start: 08-27-2024 End: 08-27-2025 Lipid 1996 panel - Serum or Plasma Lipid panel Lab Routine Mixed hyperlipidemia (CMS/HCC) Expected: 08/27/2024 (Approximate), Expires: 08/27/2025 [facility] Work Phone: Comment on above: Expected: 08/27/2024 (Approximate), Expires: 08/27/2025 Start: 08-27-2024 End: 08-27-2025 Microalbumin/Creatini ne panel in random Urine Microalbumin / creatinine, urine ratio Lab Routine Primary hypertension ([facility]/HCC) Type 2 diabetes mellitus with complication, with long-term current use of insulin ([facility]/HCC) Expected: 08/27/2024 (Approximate), Expires: 08/27/2025 [facility] Comment on above: Expected: 08/27/2024 (Approximate), Expires: 08/27/2025 Start: 08-27-2024 End: 08-27-2025 Urate [Mass/volume] in Serum or Plasma Uric acid Lab Routine Gout, unspecified cause, unspecified chronicity, unspecified site Expected: 08/27/2024 (Approximate), Expires: 08/27/2025 [facility] Comment on above: Expected: 08/27/2024 (Approximate), Expires: 08/27/2025 Start: 08-27-2024 End: 08-27-2025 Urinalysis complete panel - Urine Urinalysis with reflex microscopic (clean catch) Lab Routine Primary hypertension ([facility]) Type 2 diabetes mellitus with complication, with long-term current use of insulin ([facility]) Tobacco user Gout, unspecified cause, unspecified chronicity, unspecified site Expected: 08/27/2024 (Approximate), Expires: 08/27/2025 [facility] Comment on above: Expected: 08/27/2024 (Approximate), Expires: 08/27/2025 Start: 08-26-2024 End: 08-26-2024 Patient encounter procedure 08/26/2024 10:30 AM EST Office Visit [facility] [address] [place] [address] Rain Souza MD [address] [place] [address] [facility] Start: 07-14-2024 End: 07-14-2024 Patient encounter procedure 07/14/2024 6:30 PM EST Office Visit [facility] [address] [place] [address] Mckayla Blas, SILVANO [address] [place] [address] [facility] Start: 07-14-2024 End: 07-14-2024 Patient encounter procedure 07/14/2024 10:10 AM EST Office Visit [facility] [address] [place] [address] Rain Souza MD [address] [place] [address] [facility] Start: 06-06-2024 Influenza vaccination Influenza Vacc ine (#1) [facility] Comment on above: Postponed from 03/09 (Patient Refused) Start: 05-27-2024 End: 05-27-2024 Patient encounter procedure 05/27/2024 9:50 AM EST Office Visit [facility] [address] [place] [address] Rain Souza MD [address] [place] [address] [facility] Start: 05-17-2024 Hemoglobin A1c measurement Diabetes: Hemoglobin A1C [facility] Start: 05-15-2024 End: 05-15-2024 Chart abstracting 05/15/2024 Abstract [facility] [address] [place] [address] Rain Souza MD [address] [place] [address] [facility] Start: 05-15-2024 End: 05-15-2024 Patient encounter procedure 05/15/2024 11:20 AM EST Office Visit [facility] [address] [place] [address] Rain Souza MD [address] [place] [address] [facility] Start: 04-17-2024 End: 04-17-2024 Patient encounter procedure 04/17/2024 3:40 PM EDT Office Visit [facility] [address] [place] [address] Mckayla Blas, [employer] [address] [place] [phone] [facility] Start: 04-14-2024 End: 04-14-2024 Patient encounter procedure 04/14/2024 11:00 AM EDT Office Visit [facility] [address] [place] [phone] Mckayla Blas, SILVANO [address] [place] [phone] Arrived [facility] Comment on above: Arrived Start: 03-09-2024 Influenza vaccination Influenza Vacc ine (#1) [facility] Start: 02-19-2024 Hemoglobin A1c measurement Diabetes: Hemoglobin A1C [facility] Start: 11-24-2023 Urine screening for protein Diabetes: Urine Protein Screening [facility] Start: 11-23-2023 Screening for malignant neoplasm of breast Mammogram [facility] Start: 10-15-2023 End: 10-15-2023 Patient encounter procedure 10/15/2023 4:30 PM EDT Office Visit [facility] [address] [place] [phone] Mckayla Blas, [employer] [address] [place] [phone] [facility] Start: 08-09-2023 Hemoglobin A1c measurement Diabetes: Hemoglobin A1C [facility] Start: 05-27-2021 Glaucoma screening Diabetes: R etinopathy Screening [facility] Start: 03-09-2020 Influenza vaccination Flu vacc ine (Season Ended) [place], [place] Start: 10-07-2018 Screening for malignant neoplasm of cervix [facility] Start: 2010 Lipid panel Lipid screen [place], [place] Start: 2000 Screening for malignant neoplasm of cervix HPV/Cotest [facility] Start: 1991 Screening for malignant neoplasm of cervix Cervical cancer screen [place], [place] Start: 1989 DTaP/Tdap/Td vaccine (1 - Tdap) DTaP/Tdap/Td vaccine (1 - Tdap) [place], [place] Start: 1985 HIV screening HIV screen [place], [place] Start: 1970 Medicare Annual Wellness (AWV) Medicare Annual Wellness (AWV) [facility] Start: 1970 Screening for malignant neoplasm of colon [facility] BLOOD CULTURE 1 BLOOD CULTURE 1 Lab Routine 12/04/2024 4:44 PM EDT [facility] BLOOD CULTURE 2 BLOOD CULTURE 2 Lab Routine 12/04/2024 5:28 PM EDT [facility] Immunizations Immunization Date Immunization Notes Care Provider [facility] 05-18-2023 influenza, injectabl e, quadrivalent, contains preservative Mckayla Blas NP Work Phone: [facility] 05-18-2023 influenza virus vacc ine, unspecified formulation Rain Souza MD Work Phone: [facility] 07-19-2021 SARS-CoV-2 (COVID-19 ) mRNA BNT-162b2 bjornx SARAH VEGA [facility] 10-28-2020 SARS-CoV-2 (COVID-19 ) mRNA BNT-162b2 bjornx SARAH VEGA [facility] 10-08-2020 SARS-CoV-2 (COVID-19 ) mRNA BNT-162b2 vax SARAH VEGA [facility] 04-16-2017 influenza virus vacc ine, H5N1, A/ (national stockpile) Mckayla Blas [employer] Work Phone: [facility] 04-16-2017 influenza virus vacc ine, unspecified formulation Rain Souza MD Work Phone: [facility] 04-16-2017 influenza, unspecifi ed formulation Elbert ARAUZ [facility] 04-16-2017 pneumococcal polysaccharide vaccine, 23 valent Rain Souza MD Work Phone: [facility] 05-10-2016 influenza virus vacc ine, H5N1, A/ (national stockpile) Mckayla Blas [employer] Work Phone: [facility] 05-10-2016 influenza virus vacc ine, unspecified formulation Rain Souza MD Work Phone: [facility] 05-10-2016 influenza, unspecifi ed formulation Elbert ARAUZ [facility] 05-02-2013 influenza virus vacc ine, whole virus Rain Souza MD Work Phone: [facility] 05-02-2013 influenza, injectabl e, quadrivalent, contains preservative Mckayla Blas [employer] Work Phone: [facility] 05-02-2013 influenza, whole Elbert ARAMBULA [facility] 01-29-1998 measles, mumps and rubella virus vaccine Rain Souza MD Work Phone: [facility] Payers Date Payer Category Payer Unknown [id number] 2023 Medicare (Managed Care) [id number]. [id number] 2023 Private Health Insurance [id number] 2023 Medicare [id number] 2018 Medicaid MEDICAID [facility] [id number] 2018-Present [phone] [address] [place] [address] Medicaid [id number] 2013 Medicare [id number] 1970 Unknown [id number] 47 1970 Unknown [id number] [id number] 93 1970 Unknown [id number] [id number] 93 1970 Unknown [id number] [id number] 93 1970 Unknown [id number] [id number] 93 1970 Unknown [id number] [id number] 93 1970 Unknown [id number] [id number] 93 1970 Unknown [id number] [id number] 93 1970 Unknown [id number] [id number] 93 1970 Unknown [id number] [id number] 93 1970 Unknown [id number] [id number] 93 1970 Unknown [id number] [id number] 93 1970 Unknown [id number] 2.16.840.1.347016.3.579.2.5 93 1970 Unknown [id number] 2.16.840.1.621190.3.579.2.5 93 1970 Unknown [id number] 2.16.840.1.389680.3.579.2.5 93 1970 Unknown [id number] 2.16.840.1.266369.3.579.2.5 93 1970 Unknown [id number] 2.16.840.1.043827.3.579.2.5 93 1970 Unknown [id number] 2.16.840.1.176336.3.579.2.5 93 1970 Unknown [id number] 2.16.840.1.167987.3.579.2.5 93 1970 Unknown [id number] 2.16.840.1.268399.3.579.2.5 93 1970 Unknown [id number] 2.16.840.1.898719.3.579.2.5 93 1970 Unknown [id number] 2.16.840.1.934949.3.579.2.5 93 1970 Unknown [id number] 2.16.840.1.960909.3.579.2.5 93 1970 Unknown [id number] 2.16.840.1.525754.3.579.2.7 27 1970 Unknown [id number] 2.16.840.1.336492.3.579.2.7 27 1970 Unknown [id number] 2.16.840.1.614399.3.579.2.1 259 1970 Unknown [id number] 2.16.840.1.429384.3.579.2.1 259 1970 Unknown [id number] 2.16.840.1.017527.3.579.2.1 259 1970 Unknown [id number] 2.16.840.1.595664.3.579.2.1 259 1970 Unknown [id number] 2.16.840.1.098958.3.579.2.1 259 1970 Unknown [id number] 2.16.840.1.025463.3.579.2.1 259 1970 Unknown [id number] 2.16.840.1.051795.3.579.2.1 259 1970 Unknown [id number] 2.16.840.1.374330.3.579.2.1 259 1970 Unknown [id number] 2.16.840.1.262781.3.579.2.1 259 1970 Unknown [id number] 2.16.840.1.749863.3.579.2.1 96 1970 Unknown [id number] 2.16.840.1.241708.3.579.2.1 96 1970 Unknown [id number] 2.16840.1.888776.3.579.2.1 96 1959 Medicaid [id number] 1959 Private Health Insurance [id number] 1959 Unknown [id number] 2.16.840.1.372537.19 Social History Date Type Detail Facility Start: 02-17-2014 End: 01-29-2025 Tobacco smoking status NHIS Current every day smoker [place], [place] Start: 02-17-1994 History of tobacco use Cigarette Smo ker [place] Start: 02-17-2014 End: 08-26-2024 Cigarettes smoked current (pack per day) - Reported [place] Start: 02-17-2014 Alcohol intake Current drinke r of alcohol (finding) [place] Start: 02-17-2014 Alcohol Comment [place] Start: 1970 Sex Assigned At Not on file M [place] Exposure to SARS-CoV -2 (event) Unable to assess [place] Start: 02-06-2022 Tobacco smoking status Smoker (findi ng) [facility] Start: 07-10-2023 End: 08-26-2024 Sex Assigned At Female [facility] Start: 11-15-2022 End: 06-11-2024 Tobacco smoking status Heavy tobacco smoker (finding) [facility] Start: 07-10-2023 End: 01-29-2025 Tobacco use and exposure Smokeless tobacco non-user [facility] Start: 07-10-2023 End: 01-29-2025 Alcohol intake Lifetime non-drinker (finding) [facility] Within the last year , have you been afraid of your partner or ex-partner? No [facility] Do you belong to any clubs or organizations such as nondenominational groups, unions, fraternal [...] Equipment Origin al Text Equipment Identifier Dates [id number] Start: 01-18-2024 USE TO TEST BLOO D SUGAR 4 TIMES DAILY [id number] Start: 07-07-2024 Functional Status Date Assessment Result Facility 01-26-2025 Patient [facility] ionnaire 2 item (PHQ-2) [Reported] [facility] 01-26-2025 Trouble falling or s taying asleep, or sleeping too much Not at all 01/26/2025 4:13 PM EDT Mychart, Generic Not at all [facility] 01-26-2025 Feeling tired or hav ing little energy Not at all 01/26/2025 4:13 PM EDT Mychart, Generic Not at all [facility] 01-26-2025 Poor appetite or overeating Not at all 01/26/2025 4:13 PM EDT Mychart, Generic Not at all [facility] 01-26-2025 Feeling bad about yourself-or that you are a failure or have let yourself or your family down Not at all 01/26/2025 4:13 PM EDT Mychart, Generic Not at all [facility] 01-26-2025 Trouble concentratin g on things, such as reading the newspaper or watching television Not at all 01/26/2025 4:13 PM EDT Mychart, Generic Not at all [facility] 01-26-2025 Moving or speaking s o slowly that other people could have noticed. Or the opposite - being so fidgety or restless that you have been moving around a lot more than usual Not at all 01/26/2025 4:13 PM EDT Mychart, Generic Not at all [facility] 01-26-2025 Thoughts that you wo uld be better off , or of hurting yourself in some way Not at all 01/26/2025 4:13 PM EDT Mychart, Generic Not at all [facility] 06-11-2024 Functional Status N/A [facility] 11-15-2022 Functional Status N/A [facility] 02-06-2022 Functional Status N/A [facility] Clinical Notes 01-19-2022 to 02-04-2025 Rain Souza MD - 01/29/2025 9:40 AM Savannah Blas, [employer] - 01/26/2025 6:46 PM Savannah Blas, [employer] - 01/26/2025 6:46 PM Savannah Blas, SILVANO - 01/26/2025 6:46 PM EDTPatient Instructions Note Date & Type Note Facility 02-04-2025 Note Please let her know her ECHO showed some improvement in the left side wall thickness, it was severely enlarged, now it is moderate. Important for good BP control to continue to improve this. Everything else looks good. Follow-up as planned in 6 months. Thanks! [facility] 01-29-2025 History of Present illness [...] 15 mg weekly, farxia 5 mg daily. 02/2024 follow up visit on 02/14/2024 , [...] 25 mg, Oral, 2 times daily HYDROcodone-acetaminophen ([place]) 5-325 MG tablet 1 tablet, 3 times [...] Cellulitis of left lower extremity Cervical cancer ([facility]) 09/17/2023 Chronic pain of both knees 09/17/2023 COPD (chronic obstructive pulmonary disease) ([facility]) 07/10/2023 COPD exacerbation ([facility]) 09/17/2023 Decreased functional mobility 09/17/2023 Diabetic neuropathy ([facility]) 07/10/2023 Dietary counseling and surveillance Edema 07/10/2023 Elevated sed rate Elevated WBC count Essential (primary) hypertension GERD (gastroesophageal reflux disease) 09/17/2023 Hyperlipidemia 09/17/2023 Hypertension 07/10/2023 Insomnia 09/17/2023 [facility] (current) use of insulin ([facility]) Lower extremity edema 09/17/2023 Mixed hyperlipidemia Morbid (severe) obesity due to excess calories ([facility]) Obstructive sleep apnea 07/10/2023 PAD (peripheral artery disease) 09/17/2023 Pancreatitis ([facility]) 09/17/2023 Pneumonia 09/17/2023 Proteinuria, unspecified Pulmonary hypertension ([facility]) 09/17/2023 Radiculopathy, lumbar region 09/17/2023 Tobacco user 09/17/2023 Type 2 diabetes mellitus with complication, with long-term current use of insulin ([facility]) 07/10/2023 Unilateral primary osteoarthritis, right hip [...] (BMI) of 50.0 to 59.9 in adult ([facility]) Diet and exercise reviewed with the patient Follow up in about 4 months (around 06/01/2025). 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 Associated Problem(s): COPD (chronic [...] 25 mg, Oral, 2 times daily HYDROcodone-acetaminophen ([place]) 5-325 MG tablet 1 tablet, 3 times [...] 09/17/2023 Angiomyolipoma Anxiety and depression 07/10/2023 Asthma ([facility]) 07/10/2023 Body mass index (BMI) 50.0-59.9, adult ([facility]) Cellulitis of left lower extremity Cervical cancer ([facility]) 09/17/2023 Chronic pain of both knees 09/17/2023 COPD (chronic obstructive pulmonary disease) ([facility]) 07/10/2023 COPD exacerbation ([facility]) 09/17/2023 Decreased functional mobility 09/17/2023 Diabetic neuropathy ([facility]) 07/10/2023 Dietary counseling and surveillance Edema 07/10/2023 Elevated sed rate Elevated WBC count Essential (primary) hypertension GERD (gastroesophageal reflux disease) 09/17/2023 Hyperlipidemia 09/17/2023 Hypertension 07/10/2023 Insomnia 09/17/2023 [facility] (current) use of insulin ([facility]) Lower extremity edema 09/17/2023 Mixed hyperlipidemia Morbid (severe) obesity due to excess calories ([facility]) Obstructive sleep apnea 07/10/2023 PAD (peripheral artery disease) 09/17/2023 Pancreatitis ([facility]) 09/17/2023 Pneumonia 09/17/2023 Proteinuria, unspecified Pulmonary hypertension (HCC) 09/17/2023 Radiculopathy, lumbar region 09/17/2023 Tobacco user [...] This Visit Diabetic neuropathy (HCC) Continue with cintia hudson mgmt is prescribing OARRS reviewed Fu in 3 months Goal: tighter glucose control, this has been improving, latest A1c is 7.4%!!! 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 Hypertension Please check blood pressure daily and record DASH diet Limit caffeine Take medication as directed Contact office if chest pain, pressure, dizziness, shortness of breath, swelling legs Recommend slow position changes Current meds: hydralazine, lisinopril, Relevant Medications hydrALAZINE (Apresoline) 25 MG tablet lisinopril 20 MG tablet Type 2 diabetes mellitus with complication, with long-term current use of insulin ([facility]) Check blood sugars daily, notify if [...] Relevant Medications DULoxetine (Cymbalta) [address] agrawal Bilateral lower extremity edema Limit sodium , elevate legs, furosemide Relevant Medications furosemide (Lasix) 20 MG tablet furosemide (Lasix) 40 MG tablet potassium chloride ER (Micro-K) 10 MEQ ER capsule Vaginal yeast infection Secondary to double atb for now Insomnia elavil Relevant Medications amitriptyline (Elavil) 25 MG tablet Pulmonary hypertension (HCC) Has seen [facility] Cardiology Hyperlipidemia On statin therapy Check [...] Morbid (severe) obesity due to excess calories ([facility]) Discussed with patient their BMI (actual, verses [...] Associated Problem(s): Pulmonary hypertension (HCC) Has seen [facility] Cardiology Associated Problem(s): Hypertension Please check [...] a yearly basis documented in this encounter [facility] 01-26-2025 Instructions Mckayla Blas NP - 01/26/2025 6:00 PM EDT Please call the [place] to schedule your mammogram: [phone]- ext [phone] documented in this encounter [facility] 01-06-2025 Note Cardiovascular Medic [facility] SUBJECTIVE Chief Complaint Patient presents with Congestive Heart Failure Hypertension Hyperlipidemia Mitzi Macias is a 54 y.o. female here for follow-up. PMHx: HFpEF, HTN, HLD, DM, longstanding heavy smoker, COPD, DANIEL, morbid obesity HPI 01/06/2025 Since last seen she was admitted to [facility] for AMS on 12/05/2024. She was [...] 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 ([facility]/HCC) [facility] current use of inhaled steroid Vitamin D deficiency, unspecified Vitamin deficiency Past Medical History: Diagnosis Date COPD (chronic obstructive pulmonary disease) (CMS/[facility]) Diabetes mellitus ([facility]) Hyperlipidemia Hypertension Sleep apnea Family History [...] , Rfl: ergocalciferol (Vitamin D-2) 1.25 MG (98512 Units) capsule, Take 1.25 mg by mouth., [...] and at bedtime., Disp: , Rfl: HYDROcodone-acetaminophen ([place]) 5-325 mg tablet, TAKE 1 TABLET BY MOUTH THREE TIMES A DAY NEEDED FOR PAIN MUST LAST 30 DAYS, Disp: , Rfl: insulin aspart (NovoLOG) 100 unit/mL (3 mL) injection pen, Novolog Flexpen U-100 Insulin aspart 100 unit/mL (3 mL) subcutaneous, Disp: , Rfl: insulin glargine (Lantus Solostar U-100 Insulin) 100 unit/mL (3 mL) injection pen (more content not included)... [facility] 01-06-2025 Note Patient is here [...] weight gain. Cardiovascular: Positive for leg swelling. [facility] 12-09-2024 History of Present illness [...] bad light. She was ultimately taken to [facility] ER, no tox screen was done [...] 25 mg, Oral, 2 times daily HYDROcodone-acetaminophen ([place]) 5-325 MG tablet 1 tablet, 3 times [...] Albuminuria 09/17/2023 Angiomyolipoma Anxiety and depression ([facility]) 07/10/2023 Asthma 07/10/2023 Body mass index (BMI) 50.0-59.9, adult ([facility]) Cellulitis of left lower extremity Cervical cancer ([facility]) 09/17/2023 Chronic pain of both knees 09/17/2023 COPD (chronic obstructive pulmonary disease) ([facility]) 07/10/2023 COPD exacerbation ([facility]) 09/17/2023 Decreased functional mobility 09/17/2023 Diabetic neuropathy ([facility]) 07/10/2023 Dietary counseling and surveillance Edema 07/10/2023 Elevated sed rate Elevated WBC count Essential (primary) hypertension ([facility]) GERD (gastroesophageal reflux disease) 09/17/2023 Hyperlipidemia (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) Lower extremity edema 09/17/2023 Mixed hyperlipidemia ([facility]) Morbid (severe) obesity due to excess calories ([facility]) Obstructive sleep apnea 07/10/2023 PAD (peripheral artery disease) ([facility]) 09/17/2023 Pancreatitis 09/17/2023 Pneumonia 09/17/2023 Proteinuria, unspecified Pulmonary hypertension ([facility]) 09/17/2023 Radiculopathy, lumbar region 09/17/2023 Tobacco user 09/17/2023 Type 2 diabetes mellitus with complication, with long-term current use of insulin ([facility]) 07/10/2023 Unilateral primary osteoarthritis, right hip [...] Problem List Items Addressed This Visit Hypertension ([facility]) Please check blood pressure daily and record DASH diet Limit caffeine Take medication as directed Contact office if chest pain, pressure, dizziness, shortness of breath, swelling legs Recommend slow position changes Current meds: hydralazine, lisinopril, Type 2 diabetes mellitus with complication, with long-term current use of insulin ([facility]) Check blood sugars daily, notify if [...] secondary to her steroids Anxiety and depression ([facility]) Current meds: elavil, duloxtine, COPD exacerbation ([facility]) Recent ER visit for unresponsiveness , found to have fever and elevated WBC Sent home with steroids and atb Breathing is better and she feels back to her normal baseline Does have home O2, she is not wearing this today Pulmonary hypertension ([facility]) Has seen [facility] Cardiology Morbid (severe) obesity due to excess calories ([facility]) Discussed with patient their BMI (actual, [...] Associated Problem(s): Pulmonary hypertension (CMS/HCC) Has seen [facility] Cardiology Associated Problem(s): Hypertension (CMS/HCC) Please [...] wearing this today documented in this encounter [facility] 12-09-2024 Instructions Mckayla Blas NP - 12/09/2024 10:00 AM EDT Keep appt with wound care today Keep fu with me, sooner if needed documented in this encounter [facility] 10-27-2024 History of Present illness [...] PPI Associated Problem(s): PAD (peripheral artery disease) ([facility]) Asa, statin Quit smoking BP and [...] 25 mg, Oral, 2 times daily HYDROcodone-acetaminophen ([place]) 5-325 MG tablet 1 tablet, 3 times [...] CT Albuminuria 09/17/2023 Angiomyolipoma Anxiety and depression ([facility]) 07/10/2023 Asthma 07/10/2023 Body mass index (BMI) 50.0-59.9, adult ([facility]) Cellulitis of left lower extremity Cervical cancer ([facility]) 09/17/2023 Chronic pain of both knees 09/17/2023 COPD (chronic obstructive pulmonary disease) ([facility]) 07/10/2023 COPD exacerbation ([facility]) 09/17/2023 Decreased functional mobility 09/17/2023 Diabetic neuropathy ([facility]) 07/10/2023 Dietary counseling and surveillance Edema 07/10/2023 Elevated sed rate Elevated WBC count Essential (primary) hypertension ([facility]) GERD (gastroesophageal reflux disease) 09/17/2023 Hyperlipidemia ([facility]) 09/17/2023 Hypertension ([facility]) 07/10/2023 Insomnia 09/17/2023 [facility] (current) use of insulin ([facility]) Lower extremity edema 09/17/2023 Mixed hyperlipidemia ([facility]) Morbid (severe) obesity due to excess calories ([facility]) Obstructive sleep apnea 07/10/2023 PAD (peripheral artery disease) ([facility]) 09/17/2023 Pancreatitis 09/17/2023 Pneumonia 09/17/2023 Proteinuria, unspecified Pulmonary hypertension ([facility]) 09/17/2023 Radiculopathy, lumbar region 09/17/2023 Tobacco user 09/17/2023 Type 2 diabetes mellitus with complication, with long-term current use of insulin ([facility]) 07/10/2023 Unilateral primary osteoarthritis, right hip [...] List Items Addressed This Visit Diabetic neuropathy ([facility]) - Primary Continue with cintia hudson is prescribing OARRS reviewed Fu in 3 months Goal: tighter glucose control, this has been improving, latest A1c is 7.4%!!! Hypertension ([facility]) Please check blood pressure daily and record DASH diet Limit caffeine Take medication as directed Contact office if chest pain, pressure, dizziness, shortness of breath, swelling legs Recommend slow position changes Current meds: hydralazine, lisinopril, Relevant Medications hydrALAZINE (Apresoline) 25 MG tablet lisinopril 20 MG tablet Type 2 diabetes mellitus with complication, with long-term current use of insulin ([facility]) Check blood sugars daily, notify if [...] 81 MG chewable tablet Anxiety and depression ([facility]) Current meds: elavil, duloxtine, Relevant Medications [...] Morbid (severe) obesity due to excess calories ([facility]) Discussed with patient their BMI (actual, [...] mounjaro for DM Chronic diastolic heart failure ([facility]/HCC) Current meds; asa, farxiga, lasix, hydralazine, lisinopril, Follows with [facility] Reviewed 08/02 notes Cigarette nicotine dependence without complication Is currently using chantix, and is doing well, less desire, smoking less Vitamin D deficiency, unspecified Relevant Medications ergocalciferol (Vitamin D2) 1.25 MG (90855 UT) capsule Gastro-esophageal reflux disease without esophagitis [...] A1c is 7.4%!!! documented in this encounter [facility] 10-27-2024 Instructions Mckayla Blas NP - 10/27/2024 2:00 PM EDT No dose changes in meds You will be due for mammogram I will send order to [facility], they should call you to schedule If no call, please call [phone] documented in this encounter [facility] 10-08-2024 History of Present illness [...] or chew. ergocalciferol (Vitamin D2) 1.25 MG (76154 UT) capsule TAKE 1 CAPSULE BY MOUTH [...] 25 mg, Oral, 2 times daily HYDROcodone-acetaminophen ([place]) 5-325 MG tablet 1 tablet, 3 times [...] CT Albuminuria 09/17/2023 Angiomyolipoma Anxiety and depression ([facility]) 07/10/2023 Asthma ([facility]) 07/10/2023 Body mass index (BMI) 50.0-59.9, adult ([facility]) Cellulitis of left lower extremity Cervical cancer ([facility]) 09/17/2023 Chronic pain of both knees 09/17/2023 COPD (chronic obstructive pulmonary disease) ([facility]) 07/10/2023 COPD exacerbation ([facility]) 09/17/2023 Decreased functional mobility 09/17/2023 Diabetic neuropathy ([facility]) 07/10/2023 Dietary counseling and surveillance Edema 07/10/2023 Elevated sed rate Elevated WBC count Essential (primary) hypertension ([facility]) GERD (gastroesophageal reflux disease) 09/17/2023 Hyperlipidemia ([facility]) 09/17/2023 Hypertension ([facility]) 07/10/2023 Insomnia 09/17/2023 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 ([facility]) Lower extremity edema 09/17/2023 Mixed hyperlipidemia ([facility]) Morbid (severe) obesity due to excess calories ([facility]) Obstructive sleep apnea 07/10/2023 PAD (peripheral artery disease) ([facility]) 09/17/2023 Pancreatitis 09/17/2023 Pneumonia 09/17/2023 Proteinuria, unspecified Pulmonary hypertension ([facility]) 09/17/2023 Radiculopathy, lumbar region 09/17/2023 Tobacco user 09/17/2023 Type 2 diabetes mellitus with complication, with long-term current use of insulin ([facility]) 07/10/2023 Unilateral primary osteoarthritis, right hip [...] months (around 02/07/2025). documented in this encounter [facility] 08-27-2024 History of Present illness [...] or chew. ergocalciferol (Vitamin D2) 1.25 MG (99726 UT) capsule TAKE 1 CAPSULE BY MOUTH [...] 25 mg, Oral, 2 times daily HYDROcodone-acetaminophen ([place]) 5-325 MG tablet 1 tablet, 3 times [...] Angiomyolipoma Anxiety and depression (CMS/HCC) 07/10/2023 Asthma ([facility]) 07/10/2023 Body mass index (BMI) 50.0-59.9, adult ([facility]) Cellulitis of left lower extremity Cervical cancer ([facility]) 09/17/2023 Chronic pain of both knees 09/17/2023 COPD (chronic obstructive pulmonary disease) ([facility]) 07/10/2023 COPD exacerbation ([facility]) 09/17/2023 Decreased functional mobility 09/17/2023 Diabetic neuropathy ([facility]) 07/10/2023 Dietary counseling and surveillance Edema 07/10/2023 Elevated sed rate Elevated WBC count Essential (primary) hypertension ([facility]) GERD (gastroesophageal reflux disease) 09/17/2023 Hyperlipidemia ([facility]) 09/17/2023 Hypertension ([facility]) 07/10/2023 Insomnia 09/17/2023 MCFP (current) use of insulin ([facility]) Lower extremity edema 09/17/2023 Mixed hyperlipidemia ([facility]) Morbid (severe) obesity due to excess calories ([facility]) Obstructive sleep apnea 07/10/2023 PAD (peripheral artery disease) ([facility]) 09/17/2023 Pancreatitis 09/17/2023 Pneumonia 09/17/2023 Proteinuria, unspecified Pulmonary hypertension ([facility]) 09/17/2023 Radiculopathy, lumbar region 09/17/2023 Tobacco user 09/17/2023 Type 2 diabetes mellitus with complication, with long-term current use of insulin ([facility]) 07/10/2023 Unilateral primary [...] This Visit Diabetic neuropathy (CMS/HCC) Continue with cintia hudson [...] / creatinine, urine ratio Anxiety and depression (CMS/HCC) - Primary Current meds: elavil, duloxtine, PHQ [...] of the risks of continued smoking: stroke, MS, all forms of cancer, lung disease, and [...] of the risks of continued smoking: stroke, MS, all forms of cancer, lung disease, and . Options for quitting smoking include: cold turkey, hypnosis, acupuncture, nicotine replacement meds (gum, lozenges, and patches), Buproprion, and Varenicline. At this time pt is encouraged to evaluate their goals for wanting to quit smoking, and reach out to provider when ready to start this process Willing to trial nicotine patches Associated Problem(s): Anxiety and depression ([facility]/HCC) Current meds: elavil, duloxtine, PHQ 9= 5 IRENE 7=3 Current meds: TCA, and duloxetine Associated Problem(s): Type 2 diabetes mellitus with complication, with long-term current use of insulin (CMS/[facility]) Check blood sugars daily, notify if [...] lisinopril, Follows with cardilogy Reviewed 1/25 notes Associated Problem(s): COPD (chronic obstructive pulmonary disease) ([facility]) Follows with verena Needs smoking cessation Current meds: duoneb, albuterol, daliresp, Associated Problem(s): Asthma ([facility]) Current meds: albuterol, duoneb, 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 year old female patient being seen for follow-up on diastolic heart failure, shortness of breath and hypertension Patient Active Problem List Diagnosis Abdominal pannus Adrenal mass 1 cm to 4 cm in diameter ([facility]/HCC) Albuminuria RAGHU positive Anxiety and depression Arthritis Asthma Bilateral lower extremity edema BMI 50.0-59.9, adult ([facility]) Candidiasis of breast Cardiomegaly Cervical cancer ([facility]/HCC) Chronic pain of both knees Closed fracture of upper end of humerus Acute respiratory distress syndrome ([facility]/HCC) Decreased functional mobility Diabetic neuropathy ([facility]) Easy bruising GERD (gastroesophageal reflux disease) Gout Headache Hyperlipidemia Hypertension Insomnia Kidney stone Left flank pain Mixed incontinence Class 3 severe obesity with serious comorbidity and body mass index (BMI) of 50.0 to 59.9 in adult ([facility]) Non-seasonal allergic rhinitis Obstructive sleep apnea Other chronic pain PAD (peripheral artery disease) ([facility]) Pneumonia Encounter for screening mammogram for malignant neoplasm of breast Pulmonary hypertension ([facility]) Radiculopathy, lumbar region Current smoker Type 2 diabetes mellitus with complication, with long-term current use of insulin ([facility]) Unilateral primary osteoarthritis, right hip Vaginal yeast infection Venous insufficiency Bad odor of urine Critical limb ischemia of right lower extremity ([facility]) Hyperpigmentation of skin 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 2 diabetes mellitus ([facility]) Myelolipoma of adrenal gland Venous ulcer of right leg ([facility]) HPI Patient was has history of [...] Diagnosis Date COPD (chronic obstructive pulmonary disease) (CMS/[facility]) Diabetes mellitus ([facility]) Hyperlipidemia Hypertension Sleep apnea Past Surgical [...] , Rfl: ergocalciferol (Vitamin D-2) 1.25 MG (61744 Units) capsule, Take 1.25 mg by mouth., [...] and at bedtime., Disp: , Rfl: HYDROcodone-acetaminophen (Decatur) 5-325 mg tablet, TAKE 1 TABLET BY [...] TWICE DAILY, Disp: (more content not included)... [facility] 07-14-2024 History of Present illness [...] or chew. ergocalciferol (Vitamin D2) 1.25 MG (61003 UT) capsule TAKE 1 CAPSULE BY MOUTH ONE TIME PER WEEK furosemide (LASIX) 40 mg, Oral, Daily furosemide (LASIX) 20 mg, Oral, Daily PRN, Take in the afternoon as needed hydrALAZINE (APRESOLINE) 25 mg, Oral, 2 times daily HYDROcodone-acetaminophen (Decatur) 5-325 MG tablet 1 tablet, 3 times [...] CT Albuminuria 09/17/2023 Angiomyolipoma Anxiety and depression ([facility]) 07/10/2023 Asthma ([facility]) 07/10/2023 Body mass index (BMI) 50.0-59.9, adult ([facility]) Cellulitis of left lower extremity Cervical cancer ([facility]) 09/17/2023 Chronic pain of both knees 09/17/2023 COPD (chronic obstructive pulmonary disease) ([facility]) 07/10/2023 COPD exacerbation ([facility]) 09/17/2023 Decreased functional mobility 09/17/2023 Diabetic neuropathy ([facility]) 07/10/2023 Dietary counseling and surveillance Edema 07/10/2023 Elevated sed rate Elevated WBC count Essential (primary) hypertension (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) Lower extremity edema 09/17/2023 Mixed hyperlipidemia ([facility]) Morbid (severe) obesity due to excess calories ([facility]) Obstructive sleep apnea 07/10/2023 PAD (peripheral artery disease) ([facility]) 09/17/2023 Pancreatitis 09/17/2023 Pneumonia 09/17/2023 Proteinuria, unspecified Pulmonary hypertension ([facility]) 09/17/2023 Radiculopathy, lumbar region 09/17/2023 Tobacco user 09/17/2023 Type 2 diabetes mellitus with complication, with long-term current use of insulin ([facility]) 07/10/2023 Unilateral primary [...] List Items Addressed This Visit Diabetic neuropathy ([facility]) Continue with lyrica OARRS reviewed Fu in 3 months COPD (chronic obstructive pulmonary disease) ([facility]) Stable at this time, no changes in meds Encouraged smoking cessation Cont with dr Yañez Hypertension ([facility]) - Primary Please check blood pressure daily and record DASH diet Limit caffeine Take medication as directed Contact office if chest pain, pressure, dizziness, shortness of breath, swelling legs Recommend slow position changes Current meds: hydralazine, lisinopril, Type 2 diabetes mellitus with complication, with long-term current use of insulin ([facility]) Check blood sugars daily, notify if <70 [...] take over prescribing PAD (peripheral artery disease) ([facility]) Asa, statin Quit smoking BP and [...] of the risks of continued smoking: stroke, MS, all forms of cancer, lung disease, and [...] 1 cm to 4 cm in diameter ([facility]/HCC) Continue with Urology Kidney stone Continue with Urology Non-seasonal allergic rhinitis Relevant Medications cetirizine (ZyrTEC) 10 MG tablet Critical limb ischemia of right lower extremity ([facility]/HCC) Saw vascular, does have narrowing in arteries in legs, and thus the wounds not healing At this point they strongly urge to quit smoking or risk limb amputation Cont asa and statin Also good blood pressure and sugar control Venous ulcer of right leg ([facility]) Encounter for smoking cessation counseling Relevant Medications nicotine (Nicoderm, Step 1) 21 MG/24HR patch Other Visit Diagnoses Type 2 diabetes mellitus with unspecified complications ([facility]) Quitting smokinppd, chantix not helped, ] Face time with pt, spent 15 minutes with pt Associated Problem(s): Tobacco user The patient has been advised of the risks of continued smoking: stroke, MS, all forms of cancer, lung disease, and [...] complication, with long-term current use of insulin ([facility]) Check blood sugars daily, notify if [...] in 3 months documented in this encounter [facility] 06-11-2024 Hospital Discharge instructions Patient [...] require a prescription. You can also purchase vbdb-tyu-ybgyjdw medicines. Medicines may have nicotine in them [...] and encouragement. Call telephone quitlines, such as 7-651-KHJV-NOW, reach out to support groups, or work [...] provider. Document Revised: 06/16/2022 Document Reviewed: 06/16/2022 [employer] Patient Education 2023 [employer]. 06/11/2024 10:39:22 Dietary Guidelines to Help Prevent [...] include: ?8 oz (237 mL) of milk, hyraheb-ojvfkowqqqud-juyci milk, and calcium-fortifiedfruit juice. Calcium-fortified means that [...] ?Spinach (cooked), rhubarb, beets, sweet potatoes, and Hong [place]er chard. ?Peanuts. ?Potato chips, azeri fries, and baked potatoes with skin on. ?Nuts and nut products. ?Chocolate. If you regularly take a diuretic medicine, make sure to eat at least 1 or 2 servings of fruits or vegetables that are high in potassium each day. These include: ?Avocado. ?Banana. ?[place], prune, carrot, or tomato juice. ?Baked potato. [...] magnesium, fish oil, or vitamin B6. Take kkuv-ozp-gvsmsxj and prescription medicines only as told by [...] Casseroles. Pizza. Lasagna. Frozen meals. Potato chips. Azeri fries. The items listed above may not [...] provider. Document Revised: 10/05/2022 Document Reviewed: 10/05/2022 [employer] Patient Education 2023 [employer]. Follow Up Care 05/06/2024 08:24:56 With:REGLA PHIPPS, Elbert Joya, URL Address: [facility] [address] [place] [address]- When: Unknown [facility] 05-27-2024 History of Present illness Narrative Mitzi [...] or chew. ergocalciferol (Vitamin D2) 1.25 MG (18303 UT) capsule TAKE 1 CAPSULE BY MOUTH ONE TIME PER WEEK furosemide (LASIX) 20 mg, Oral, Daily PRN, Take in the afternoon as needed furosemide (LASIX) 40 mg, Oral, Daily Glucose Blood (ACCU-CHEK JAQUI PLUS ) 4 times daily hydrALAZINE (APRESOLINE) 25 mg, Oral, 2 times daily HYDROcodone-acetaminophen (Decatur) 5-325 MG tablet 1 tablet, 3 times [...] Albuminuria 09/17/2023 Angiomyolipoma Anxiety and depression ([facility]) 07/10/2023 Asthma ([facility]) 07/10/2023 Body mass index (BMI) 50.0-59.9, adult ([facility]) Cellulitis of left lower extremity Cervical cancer ([facility]) 09/17/2023 Chronic pain of both knees 09/17/2023 COPD (chronic obstructive pulmonary disease) ([facility]) 07/10/2023 COPD exacerbation ([facility]) 09/17/2023 Decreased functional mobility 09/17/2023 Diabetic neuropathy ([facility]) 07/10/2023 Dietary counseling and surveillance Edema 07/10/2023 Elevated sed rate Elevated WBC count GERD (gastroesophageal reflux disease) 09/17/2023 Hyperlipidemia ([facility]) 09/17/2023 Hypertension (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) Obstructive sleep apnea 07/10/2023 PAD (peripheral artery disease) ([facility]) 09/17/2023 Pancreatitis 09/17/2023 Pneumonia 09/17/2023 Proteinuria, unspecified Pulmonary hypertension ([facility]) 09/17/2023 Radiculopathy, lumbar region 09/17/2023 Tobacco user 09/17/2023 Type 2 diabetes mellitus with complication, with long-term current use of insulin ([facility]) 07/10/2023 Unilateral primary osteoarthritis, right hip [...] hyperglycemia, with long-term current use of insulin ([facility]) - POCT glucose manually resulted - POCT glycosylated hemoglobin (Hb A1C) docked device We will continue with Lantus 58, lispro 08/10/12 according to meal size, Mounjaro 15 mg once weekly, Farxiga 5 mg once a day Encounter for dietary consultation Vitamin D deficiency Primary hypertension ([facility]) To follow with her PCP Insulin long-term use ([facility]) Hyperlipemia, mixed ([facility]) Continue with Zocor 10 mg once daily Microalbuminuria Class 3 severe obesity due to excess calories with serious comorbidity and body mass index (BMI) of 50.0 to 59.9 in adult ([facility]) Diet and exercise reviewed with the patient Follow up in about 3 months (around 08/27/2024). documented in this encounter [facility] 04-14-2024 History of Present illness Narrative Associated Problem(s): Hyperpigmentation of skin Will try cerevue ointment to see if helps Associated Problem(s): Tobacco user Urged to quit Associated Problem(s): Type 2 diabetes mellitus with complication, with long-term current use of insulin ([facility]) Check blood sugars daily, follow w [...] being taken. She does not see a tree topper.Eye exam is not current. Hypertension This is [...] or chew. ergocalciferol (Vitamin D2) 1.25 MG (86272 UT) capsule TAKE 1 CAPSULE BY MOUTH ONE TIME PER WEEK furosemide (LASIX) 20 mg, Oral, Daily PRN, Take in the afternoon as needed furosemide (LASIX) 40 mg, Oral, Daily Glucose Blood (ACCU-CHEK JAQUI PLUS ) 4 times daily HumaLOG KWIKPEN 100 UNIT/ML injection Subcutaneous hydrALAZINE (APRESOLINE) 25 mg, Oral, 2 times daily HYDROcodone-acetaminophen (Decatur) 5-325 MG tablet 1 tablet, 3 times [...] CT Albuminuria 09/17/2023 Angiomyolipoma Anxiety and depression ([facility]) 07/10/2023 Asthma ([facility]) 07/10/2023 Cellulitis of left lower extremity Cervical cancer ([facility]) 09/17/2023 Chronic pain of both knees 09/17/2023 COPD (chronic obstructive pulmonary disease) ([facility]) 07/10/2023 COPD exacerbation ([facility]) 09/17/2023 Decreased functional mobility 09/17/2023 Diabetic neuropathy ([facility]) 07/10/2023 Edema 07/10/2023 Elevated sed rate Elevated WBC count GERD (gastroesophageal reflux disease) 09/17/2023 Hyperlipidemia ([facility]) 09/17/2023 Hypertension ([facility]) 07/10/2023 Insomnia 09/17/2023 Lower extremity edema 09/17/2023 Obstructive sleep apnea 07/10/2023 PAD (peripheral artery disease) ([facility]) 09/17/2023 Pancreatitis 09/17/2023 Pneumonia 09/17/2023 Pulmonary hypertension ([facility]) 09/17/2023 Radiculopathy, lumbar region 09/17/2023 Tobacco user 09/17/2023 Type 2 diabetes mellitus with complication, with long-term current use of insulin ([facility]) 07/10/2023 Unilateral primary osteoarthritis, right hip [...] List Items Addressed This Visit Diabetic neuropathy ([facility]) Continue with tristan EAST reviewed Fu in 3 months Relevant Medications pregabalin (Lyrica) 300 MG capsule COPD (chronic obstructive pulmonary disease) ([facility]) - Primary Stable at this time, no changes in meds Encouraged smoking cessation Cont with dr Yañez Hypertension ([facility]) Stable on current meds Refill meds Relevant Medications hydrALAZINE (Apresoline) 25 MG tablet lisinopril 20 MG tablet Type 2 diabetes mellitus with complication, with long-term current use of insulin ([facility]) Check blood sugars daily, follow w [...] 81 MG chewable tablet Anxiety and depression ([facility]) Relevant Medications DULoxetine (Cymbalta) [address] capsule Bilateral lower extremity edema Stable on current meds Insomnia Relevant Medications amitriptyline (Elavil) 25 MG tablet Tobacco user Urged to quit Non-seasonal allergic rhinitis Relevant Medications cetirizine (ZyrTEC) 10 MG tablet Hyperpigmentation of skin Will try cerevue ointment to see if helps Other Visit Diagnoses Type 2 diabetes mellitus with unspecified complications ([facility]) Relevant Medications dapagliflozin (Farxiga) 10 MG Gastro-esophageal reflux disease without esophagitis Relevant Medications omeprazole (PriLOSEC) [address] capsule Edema, unspecified Relevant Medications potassium chloride ER (Micro-K) 10 MEQ ER capsule Edema Relevant Medications potassium chloride ER (Micro-K) 10 MEQ ER capsule Chronic obstructive pulmonary disease, unspecified (CMS/[facility]) Relevant Medications Roflumilast 500 MCG tablet documented in this encounter [facility] 11-15-2022 Hospital Discharge instructions Patient [...] include: ?8 oz (237 mL) of milk, ozbjqne-hifuvvmycibv-boqio milk, and calcium-fortifiedfruit juice. Calcium-fortified means that [...] ?Spinach (cooked), rhubarb, beets, sweet potatoes, and [place]er chard. ?Peanuts. ?Potato chips, azeri fries, and baked potatoes with skin on. ?Nuts and nut products. ?Chocolate. If you regularly take a diuretic medicine, make sure to eat at least 1 or 2 servings of fruits or vegetables that are high in potassium each day. These include: ?Avocado. ?Banana. ?[place], prune, carrot, or tomato juice. ?Baked potato. [...] magnesium, fish oil, or vitamin B6. Take arfs-few-kkklrdg and prescription medicines only as told by [...] Casseroles. Pizza. Lasagna. Frozen meals. Potato chips. Azeri fries. The items listed above may not [...] provider. Document Revised: 03/06/2022 Document Reviewed: 03/06/2022 [employer] Patient Education 2022 [employer]. Follow Up Care 02/06/2022 11:44:09 With:SILVIA HOWELL, SARAH Webb, URL Address: [address] [place] [address] When: Unknown [facility]Name 08-24-2022 Note CONSULTATION CONSULTATION DATE: 08/24/2022 HISTORY [...] We maintain her on pain medication with Decatur 5/325 t.i.d., diclofenac 75 mg b.i.d. Her [...] her at this point. A refill for Decatur 5/325 t.i.d. and diclofenac 75 mg b.i.d. [...] 150. Medications include Lyrica 300 mg b.i.d., Decatur 5/325 t.i.d., diclofenac 75 mg b.i.d. and [...] her medications today. We will maintain Lyrica, Decatur and diclofenac at the set dose and [...] medications include Tylenol, Lyrica 300 mg b.i.d., Decatur 5/325 t.i.d., amitriptyline, diclofenac and duloxetine. Patient's [...] to the DANIEL. Thrombocytopenia is unclear etiology. [facility] Other 08-15-2022 Evaluation note* Encounter Date Diagnosis [...] follow with Dr. Souza and Dr. Arauz. [facility] Other 08-01-2022 Hospital Discharge instructions Patient Education [...] fried and sweet foods. General instructions Take frqk-oad-eordbne and prescription medicines only as told by [...] 04/21/2010 Document Revised: 10/16/2019 Document Reviewed: 07/11/2018 [employer] Patient Education 2020 [employer] Follow Up Care 01/05/2022 12:02:03 With:REGLA PHIPPS, Elbert Joya, URL Address: [facility] [address], [place] [address] [phone] When:Within 6 Month(s) Comments:w/ repeat CT A/P [facility] 07-14-2022 NoteCONSULTATION PROCEDURE DATE: 01/19/2022 [...] pattern and the patient tolerated it well. [facility] Signed and Approved by: GIL VALENZUELA . 01/27/2022 14:15:00[facility]07-14-2022 NoteCONSULTATION CONSULTATION DATE: 01/19/2022 This [...] today. Medications include Lyrica 300 mg b.i.d., Decatur 5/325 t.i.d., diclofenac 75 mg b.i.d. and [...] in three months' time unless otherwise indicated. [facility] Signed and Approved by: GIL VALENZUELA . 01/27/2022 [facility]ments Appointment Date:08/14/2022 09:15:00 AM Scheduled Provider:Elbert ARAUZ MD Location:[facility] Appointment Type:URO Office Visit [facility] Evaluation + Plan note Future Appointments Appointment Date:04/22/2024 10:00:00 AM Scheduled Provider:SARAH VEGA PA-C Location:[facility] Appointment Type:URO Office Visit [facility] evaluation note* Diagnosis Type 2 diabetes mellitus with unspecified complications (CMS/HCC) Edema, unspecified Edema documented in this encounter [facility] HealthcareEvaluation note* Diagnosis Vaginal yeast infection- Primary Candidiasis of vulva and vagina documented in this encounter [facility] HealthcareEvaluation note* Diagnosis Primary hypertension (CMS/HCC)- Primary [...] skin Other dyschromia documented in this encounter [facility] HealthcareEvaluation note* Diagnosis Obstructive sleep apnea- Primary [...] Type 2 diabetes mellitus with unspecified complications ([facility]) Anxiety and depression ([facility]) Gastro-esophageal reflux disease without esophagitis Edema, unspecified Edema Diabetic polyneuropathy associated with type 2 diabetes mellitus ([facility]) Chronic obstructive pulmonary disease, unspecified ([facility]) Pulmonary emphysema, unspecified emphysema type ([facility]) Bilateral lower extremity edema Tobacco user Tobacco use disorder Hyperpigmentation of skin Other dyschromia Type 2 diabetes mellitus with hyperglycemia, with long-term current use of insulin ([facility])- Primary Encounter for dietary consultation Vitamin D deficiency Primary hypertension ([facility]) Unspecified essential hypertension Insulin long-term use ([facility]) Encounter for long-term (current) use of insulin Hyperlipemia, mixed ([facility]) Mixed hyperlipidemia Microalbuminuria Proteinuria Class 3 severe obesity due to excess calories with serious comorbidity and body mass index (BMI) of 50.0 to 59.9 in adult ([facility]) documented in this encounter [facility] HealthcareEvaluation note* Diagnosis Hyperlipidemia, unspecified ([facility]) Bilateral lower extremity edema documented in this encounter [facility] HealthcareEvaluation note* Diagnosis Vitamin D deficiency, unspecified documented in this encounter [facility] HealthcareEvaluation note* Diagnosis Obstructive sleep apnea- Primary Obstructive sleep apnea (adult) (pediatric) Pulmonary emphysema, unspecified emphysema type ([facility]) Primary hypertension ([facility]) Unspecified essential hypertension Type 2 diabetes mellitus with complication, with long-term current use of insulin ([facility]) Anxiety and depression ([facility]) Bilateral lower extremity edema Pulmonary emphysema, unspecified emphysema type ([facility])- Primary Primary hypertension ([facility]) Unspecified essential hypertension Class 3 severe obesity with serious comorbidity and body mass index (BMI) of 50.0 to 59.9 in adult, unspecified obesity type ([facility]) Obstructive sleep apnea Obstructive sleep apnea (adult) (pediatric) Pulmonary hypertension ([facility]) Other chronic pulmonary heart diseases Tobacco user Tobacco use disorder Cardiomegaly Primary hypertension ([facility])- Primary Unspecified essential hypertension Gastroesophageal reflux disease, unspecified whether esophagitis present Type 2 diabetes mellitus with complication, with long-term current use of insulin ([facility]) Mixed hyperlipidemia ([facility]) Mixed hyperlipidemia Tobacco user Tobacco use [...] to 59.9 in adult, unspecified obesity type (CMS/[facility]) Encounter for subsequent annual wellness visit [...] polyneuropathy associated with type 2 diabetes mellitus ([facility]) Chronic obstructive pulmonary disease, unspecified ([facility]) Pulmonary emphysema, unspecified emphysema type ([facility]) Bilateral lower extremity edema Tobacco user Tobacco use disorder Hyperpigmentation of skin Other dyschromia Bilateral lower extremity edema documented in this encounter [facility] HealthcareEvaluation note* Diagnosis Obstructive sleep apnea- Primary Obstructive sleep apnea (adult) (pediatric) Pulmonary emphysema, unspecified emphysema type ([facility]) Primary hypertension ([facility]) Unspecified essential hypertension Type 2 diabetes mellitus with complication, with long-term current use of insulin ([facility]) Anxiety and depression ([facility]) Bilateral lower extremity edema Pulmonary emphysema, unspecified emphysema type ([facility])- Primary Primary hypertension ([facility]) Unspecified essential hypertension Class 3 severe obesity with serious comorbidity and body mass index (BMI) of 50.0 to 59.9 in adult, unspecified obesity type ([facility]) Obstructive sleep apnea Obstructive sleep apnea (adult) (pediatric) Pulmonary hypertension ([facility]) Other chronic pulmonary heart diseases Tobacco user Tobacco use disorder Cardiomegaly Primary hypertension ([facility])- Primary Unspecified essential hypertension Gastroesophageal reflux disease, unspecified whether esophagitis present Type 2 diabetes mellitus with complication, with long-term current use of insulin ([facility]) Mixed hyperlipidemia ([facility]) Mixed hyperlipidemia Tobacco user Tobacco use disorder Encounter for screening mammogram for malignant neoplasm of breast Chronic obstructive pulmonary disease, unspecified ([facility]) Other specified chronic obstructive pulmonary disease ([facility]) Anxiety and depression ([facility]) Edema, unspecified Edema Hyperlipidemia, unspecified ([facility]) Diabetic polyneuropathy associated with type 2 diabetes mellitus ([facility]) Gout, unspecified cause, unspecified chronicity, unspecified site Non-seasonal allergic rhinitis, unspecified trigger Bilateral lower extremity edema COPD exacerbation ([facility]) Obstructive chronic bronchitis with exacerbation Pulmonary emphysema, unspecified emphysema type ([facility]) Venous insufficiency Unspecified venous (peripheral) insufficiency Candidiasis of breast COPD exacerbation ([facility])- Primary Obstructive chronic bronchitis with exacerbation Pulmonary hypertension ([facility]) Other chronic pulmonary heart diseases Class [...] Major depressive disorder, single episode, mild (HCC) (CMS/[facility]) Major depressive disorder, single episode, mild 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 exposed (CMS/[facility]) Chronic respiratory failure, unspecified whether with hypoxia or hypercapnia (CMS/[facility]) Disorder of adrenal gland, unspecified (CMS/[facility]) Non-pressure chronic ulcer of other part [...] with unspecified complications (CMS/HCC) Anxiety and depression (CMS/[facility]) Gastro-esophageal reflux disease without esophagitis Edema, [...] limb ischemia of right lower extremity (CMS/HCC) PAD (peripheral artery disease) (CMS/HCC) Unspecified peripheral vascular disease Gastroesophageal reflux disease, unspecified whether esophagitis present Bilateral lower extremity edema Venous ulcer of right leg (CMS/HCC) Type 2 diabetes mellitus with complication, with long-term current use of insulin ([facility]) Tobacco user Tobacco use disorder Encounter for smoking cessation counseling Kidney stone Calculus of kidney Adrenal mass 1 cm to 4 cm in diameter ([facility]) Radiculopathy, lumbar region Thoracic or lumbosacral neuritis or radiculitis, unspecified Non-seasonal allergic rhinitis, unspecified trigger Type 2 diabetes mellitus with unspecified complications ([facility]) documented in this encounter [facility] HealthcareEvaluation note* Diagnosis Obstructive sleep apnea- Primary Obstructive sleep apnea (adult) (pediatric) Pulmonary emphysema, unspecified emphysema type (CMS/[facility]) Primary hypertension ([facility]) Unspecified essential hypertension Type 2 diabetes mellitus with complication, with long-term current use of insulin ([facility]) Anxiety and depression ([facility]) Bilateral lower extremity edema Pulmonary emphysema, unspecified emphysema type ([facility])- Primary Primary hypertension ([facility]) Unspecified essential hypertension Class 3 severe obesity with serious comorbidity and body mass index (BMI) of 50.0 to 59.9 in adult, unspecified obesity type ([facility]) Obstructive sleep apnea Obstructive sleep apnea (adult) (pediatric) Pulmonary hypertension ([facility]) Other chronic pulmonary heart diseases Tobacco user Tobacco use disorder Cardiomegaly Primary hypertension ([facility])- Primary Unspecified essential hypertension Gastroesophageal reflux disease, unspecified whether esophagitis present Type 2 diabetes mellitus with complication, with long-term current use of insulin ([facility]) Mixed hyperlipidemia ([facility]) Mixed hyperlipidemia Tobacco user Tobacco use disorder Encounter for screening mammogram for malignant neoplasm of breast Chronic obstructive pulmonary disease, unspecified ([facility]) Other specified chronic obstructive pulmonary disease ([facility]) Anxiety and depression ([facility]) Edema, unspecified Edema Hyperlipidemia, unspecified ([facility]) Diabetic polyneuropathy associated with type 2 diabetes mellitus ([facility]) Gout, unspecified cause, unspecified chronicity, unspecified site Non-seasonal allergic rhinitis, unspecified trigger Bilateral lower extremity edema COPD exacerbation ([facility]) Obstructive chronic bronchitis with exacerbation Pulmonary emphysema, unspecified emphysema type ([facility]/HCC) Venous insufficiency Unspecified venous (peripheral) insufficiency Candidiasis of breast COPD exacerbation ([facility])- Primary Obstructive chronic bronchitis with exacerbation Pulmonary hypertension ([facility]) Other chronic pulmonary heart diseases Class 3 severe obesity with serious comorbidity and body mass index (BMI) of 50.0 to 59.9 in adult, unspecified obesity type (CMS/[facility]) Encounter for subsequent annual wellness visit [...] (CMS/HCC) Major depressive disorder, single episode, mild ([facility]) (CMS/[facility]) Major depressive disorder, single episode, mild 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 exposed (CMS/[facility]) Chronic respiratory failure, unspecified whether with [...] with unspecified complications (CMS/HCC) Anxiety and depression (CMS/[facility]) Gastro-esophageal reflux disease without esophagitis Edema, [...] limb ischemia of right lower extremity (CMS/HCC) PAD (peripheral artery disease) (CMS/[facility]) Unspecified peripheral vascular disease Gastroesophageal reflux disease, unspecified whether esophagitis present Bilateral lower extremity edema Venous ulcer of right leg ([facility]) Type 2 diabetes mellitus with complication, with long-term current use of insulin ([facility]) Tobacco user Tobacco use disorder Encounter for smoking cessation counseling Kidney stone Calculus of kidney Adrenal mass 1 cm to 4 cm in diameter ([facility]) Radiculopathy, lumbar region Thoracic or lumbosacral neuritis or radiculitis, unspecified Non-seasonal allergic rhinitis, unspecified trigger Type 2 diabetes mellitus with unspecified complications ([facility]) Anxiety and depression ([facility])- Primary Morbid (severe) obesity due to excess calories ([facility]) Body mass index (BMI) 50.0-59.9, adult ([facility]) Malignant neoplasm of cervix uteri, unspecified ([facility]) Diabetic polyneuropathy associated with type 2 diabetes mellitus ([facility] Chronic diastolic heart failure ([facility] Chronic diastolic heart failure Primary hypertension ([facility] Unspecified essential hypertension 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 ([facility]) Gastroesophageal reflux disease, unspecified whether esophagitis present Bilateral lower extremity edema Type 2 diabetes mellitus with complication, with long-term current use of insulin ([facility]) Tobacco user Tobacco use disorder Mixed hyperlipidemia ([facility]) Mixed hyperlipidemia Gout, unspecified cause, unspecified chronicity, unspecified site Vitamin deficiency Unspecified vitamin deficiency Gastro-esophageal reflux disease without esophagitis Edema, unspecified Edema Hyperlipidemia, unspecified ([facility]) Encounter for smoking cessation counseling Venous ulcer of right leg ([facility]) Antibiotic-induced yeast infection documented in this encounter [facility] HealthcareEvaluation note* Diagnosis Obstructive sleep apnea- Primary Obstructive sleep apnea (adult) (pediatric) Pulmonary emphysema, unspecified emphysema type ([facility]) Primary hypertension ([facility]) Unspecified essential hypertension Type 2 diabetes mellitus with complication, with long-term current use of insulin ([facility]) Anxiety and depression ([facility]) Bilateral lower extremity edema Pulmonary emphysema, unspecified emphysema type ([facility])- Primary Primary hypertension ([facility]) Unspecified essential hypertension Class 3 severe obesity with serious comorbidity and body mass index (BMI) of 50.0 to 59.9 in adult, unspecified obesity type Obstructive sleep apnea Obstructive sleep apnea (adult) (pediatric) Pulmonary hypertension ([facility]) Other chronic pulmonary heart diseases Tobacco user Tobacco use disorder Cardiomegaly Primary hypertension ([facility])- Primary Unspecified essential hypertension Gastroesophageal reflux disease, unspecified whether esophagitis present Type 2 diabetes mellitus with complication, with long-term current use of insulin ([facility]) Mixed hyperlipidemia ([facility]) Mixed hyperlipidemia Tobacco user Tobacco use disorder Encounter for screening mammogram for malignant neoplasm of breast Chronic obstructive pulmonary disease, unspecified Other specified chronic obstructive pulmonary disease Anxiety and depression ([facility]) Edema, unspecified Edema Hyperlipidemia, unspecified ([facility]) Diabetic polyneuropathy associated with type 2 diabetes mellitus ([facility]) Gout, unspecified cause, unspecified chronicity, unspecified site Non-seasonal allergic rhinitis, unspecified trigger Bilateral lower extremity edema COPD exacerbation ([facility]) Obstructive chronic bronchitis with exacerbation Pulmonary emphysema, unspecified emphysema type ([facility]) Venous insufficiency Unspecified venous (peripheral) insufficiency Candidiasis of breast COPD exacerbation ([facility])- Primary Obstructive chronic bronchitis with exacerbation Pulmonary hypertension ([facility]) Other chronic pulmonary heart diseases Class 3 severe obesity with serious comorbidity and body mass index (BMI) of 50.0 to 59.9 in adult, unspecified obesity type Encounter for subsequent annual wellness visit (AWV) in Medicare patient- Primary Type 2 diabetes mellitus with unspecified complications Pulmonary emphysema, unspecified emphysema type ([facility]) Moderate persistent asthma without complication ([facility]) Primary hypertension ([facility]) Unspecified essential hypertension Type 2 diabetes mellitus with complication, with long-term current use of insulin ([facility]) Class 3 severe obesity with serious comorbidity and body mass index (BMI) of 50.0 to 59.9 in adult, unspecified obesity type Tobacco user Tobacco use disorder Other headache syndrome Malignant neoplasm of cervix uteri, unspecified Other specified disorders of adrenal gland Major depressive disorder, single episode, mild (HCC) ([facility]) Major depressive disorder, single episode, mild 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 exposed Chronic respiratory failure, unspecified whether with hypoxia or hypercapnia Disorder of adrenal gland, unspecified Non-pressure chronic ulcer of other part of right lower leg limited to breakdown of skin ([facility]) Non-recurrent acute suppurative otitis media of left ear without spontaneous rupture of tympanic membrane Primary hypertension ([facility])- Primary Unspecified essential hypertension Insomnia Insomnia, unspecified Type 2 diabetes mellitus with complication, with long-term current use of insulin ([facility]) Non-seasonal allergic rhinitis, unspecified trigger Type 2 diabetes mellitus with unspecified complications Anxiety and depression ([facility]) Gastro-esophageal reflux disease without esophagitis Edema, unspecified Edema Diabetic polyneuropathy associated with type 2 diabetes mellitus ([facility]) Chronic obstructive pulmonary disease, unspecified Pulmonary emphysema, unspecified emphysema type ([facility]) Bilateral lower extremity edema Tobacco user Tobacco use disorder Hyperpigmentation of skin Other dyschromia Primary hypertension ([facility])- Primary Unspecified essential hypertension Diabetic polyneuropathy associated with type 2 diabetes mellitus ([facility]) Pulmonary emphysema, unspecified emphysema type ([facility]) Critical limb ischemia of right lower extremity ([facility]) PAD (peripheral artery disease) ([facility]) Unspecified peripheral vascular disease Gastroesophageal reflux disease, unspecified whether esophagitis present Bilateral lower extremity edema Venous ulcer of right leg ([facility]) Type 2 diabetes mellitus with complication, with long-term current use of insulin ([facility]) Tobacco user Tobacco use disorder Encounter for smoking cessation counseling Kidney stone Calculus of kidney Adrenal mass 1 cm to 4 cm in diameter ([facility]) Radiculopathy, lumbar region Thoracic or lumbosacral neuritis or radiculitis, unspecified Non-seasonal allergic rhinitis, unspecified trigger Type 2 diabetes mellitus with unspecified complications Anxiety and depression ([facility])- Primary Morbid (severe) obesity due to excess calories ([facility]) Body mass index (BMI) 50.0-59.9, adult ([facility]) Malignant neoplasm of cervix uteri, unspecified Diabetic polyneuropathy associated with type 2 diabetes mellitus ([facility] Chronic diastolic heart failure ([facility] [facility] Chronic diastolic heart failure Primary hypertension ([facility]) Unspecified essential hypertension 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 Gastroesophageal reflux disease, unspecified whether esophagitis present Bilateral lower extremity edema Type 2 diabetes mellitus with complication, with long-term current use of insulin ([facility]) Tobacco user Tobacco use disorder Mixed hyperlipidemia ([facility]) Mixed hyperlipidemia Gout, unspecified cause, unspecified chronicity, unspecified site Vitamin deficiency Unspecified vitamin deficiency Gastro-esophageal reflux disease without esophagitis Edema, unspecified Edema Hyperlipidemia, unspecified ([facility] [place]) Encounter for smoking cessation counseling Venous ulcer of right leg ([facility]) Antibiotic-induced yeast infection Type 2 diabetes mellitus with hyperglycemia, with long-term current use of insulin ([facility])- Primary Encounter for dietary consultation Vitamin D deficiency Primary hypertension ([facility]) Unspecified essential hypertension Insulin long-term use ([facility]) Encounter for long-term (current) use of insulin Hyperlipemia, mixed ([facility]) Mixed hyperlipidemia Microalbuminuria Proteinuria Class 3 severe obesity due to excess calories with serious comorbidity and body mass index (BMI) of 50.0 to 59.9 in adult documented in this encounter [facility] HealthcareEvaluation note* Diagnosis Obstructive sleep apnea- Primary Obstructive sleep apnea (adult) (pediatric) Pulmonary emphysema, unspecified emphysema type ([facility]) Primary hypertension ([facility]) Unspecified essential hypertension Type 2 diabetes mellitus with complication, with long-term current use of insulin ([facility]) Anxiety and depression ([facility]) Bilateral lower extremity edema Pulmonary emphysema, unspecified emphysema type ([facility])- Primary Primary hypertension ([facility]) Unspecified essential hypertension Class 3 severe obesity with serious comorbidity and body mass index (BMI) of 50.0 to 59.9 in adult, unspecified obesity type Obstructive sleep apnea Obstructive sleep apnea (adult) (pediatric) Pulmonary hypertension ([facility]) Other chronic pulmonary heart diseases Tobacco user Tobacco use disorder Cardiomegaly Primary hypertension ([facility])- Primary Unspecified essential hypertension Gastroesophageal reflux disease, unspecified whether esophagitis present Type 2 diabetes mellitus with complication, with long-term current use of insulin ([facility]) Mixed hyperlipidemia ([facility]) Mixed hyperlipidemia Tobacco user Tobacco use disorder Encounter for screening mammogram for malignant neoplasm of breast Chronic obstructive pulmonary disease, unspecified Other specified chronic obstructive pulmonary disease Anxiety and depression ([facility]) Edema, unspecified Edema Hyperlipidemia, unspecified ([facility]) Diabetic polyneuropathy associated with type 2 diabetes mellitus ([facility]) Gout, unspecified cause, unspecified chronicity, unspecified site Non-seasonal allergic rhinitis, unspecified trigger Bilateral lower extremity edema COPD exacerbation ([facility]) Obstructive chronic bronchitis with exacerbation Pulmonary emphysema, unspecified emphysema type ([facility]) Venous insufficiency Unspecified venous (peripheral) insufficiency Candidiasis of breast COPD exacerbation ([facility])- Primary Obstructive chronic bronchitis with exacerbation Pulmonary hypertension ([facility]) Other chronic pulmonary heart diseases Class 3 severe obesity with serious comorbidity and body mass index (BMI) of 50.0 to 59.9 in adult, unspecified obesity type Encounter for subsequent annual wellness visit (AWV) in Medicare patient- Primary Type 2 diabetes mellitus with unspecified complications Pulmonary emphysema, unspecified emphysema type ([facility]) Moderate persistent asthma without complication ([facility]) Primary hypertension ([facility]) Unspecified essential hypertension Type 2 diabetes mellitus with complication, with long-term current use of insulin ([facility]) Class 3 severe obesity with serious comorbidity and body mass index (BMI) of 50.0 to 59.9 in adult, unspecified obesity type Tobacco user Tobacco use disorder Other headache syndrome Malignant neoplasm of cervix uteri, unspecified Other specified disorders of adrenal gland Major depressive disorder, single episode, mild (HCC) ([facility]) Major depressive disorder, single episode, mild 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 exposed Chronic respiratory failure, unspecified whether with hypoxia or hypercapnia Disorder of adrenal gland, unspecified Non-pressure chronic ulcer of other part of right lower leg limited to breakdown of skin ([facility]) Non-recurrent acute suppurative otitis media of left ear without spontaneous rupture of tympanic membrane Primary hypertension ([facility])- Primary Unspecified essential hypertension Insomnia Insomnia, unspecified Type 2 diabetes mellitus with complication, with long-term current use of insulin ([facility]) Non-seasonal allergic rhinitis, unspecified trigger Type 2 diabetes mellitus with unspecified complications Anxiety and depression ([facility]) Gastro-esophageal reflux disease without esophagitis Edema, unspecified Edema Diabetic polyneuropathy associated with type 2 diabetes mellitus ([facility]) Chronic obstructive pulmonary disease, unspecified Pulmonary emphysema, unspecified emphysema type (CMS/HCC) Bilateral lower extremity edema Tobacco user Tobacco use disorder Hyperpigmentation of skin Other dyschromia Primary hypertension (CMS/HCC)- Primary Unspecified essential hypertension Diabetic polyneuropathy associated with type 2 diabetes mellitus (CMS/HCC) Pulmonary emphysema, unspecified emphysema type (CMS/HCC) Critical limb ischemia of right lower extremity ([facility]) PAD (peripheral artery disease) ([facility]) Unspecified peripheral vascular disease Gastroesophageal reflux disease, unspecified whether esophagitis present Bilateral lower extremity edema Venous ulcer of right leg ([facility]) Type 2 diabetes mellitus with complication, with long-term current use of insulin ([facility]) Tobacco user Tobacco use disorder Encounter for smoking cessation counseling Kidney stone Calculus of kidney Adrenal mass 1 cm to 4 cm in diameter ([facility]) Radiculopathy, lumbar region Thoracic or lumbosacral neuritis or radiculitis, unspecified Non-seasonal allergic rhinitis, unspecified trigger Type 2 diabetes mellitus with unspecified complications Anxiety and depression ([facility])- Primary Morbid (severe) obesity due to excess calories ([facility]) Body mass index (BMI) 50.0-59.9, adult ([facility]) Malignant neoplasm of cervix uteri, unspecified Diabetic polyneuropathy associated with type 2 diabetes mellitus ([facility]) Chronic diastolic heart failure ([facility]) Chronic diastolic heart failure Primary hypertension ([facility]) Unspecified essential hypertension 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 Gastroesophageal reflux disease, unspecified whether esophagitis present Bilateral lower extremity edema Type 2 diabetes mellitus with complication, with long-term current use of insulin ([facility]) Tobacco user Tobacco use disorder Mixed hyperlipidemia ([facility]) Mixed hyperlipidemia Gout, unspecified cause, unspecified chronicity, unspecified site Vitamin deficiency Unspecified vitamin deficiency Gastro-esophageal reflux disease without esophagitis Edema, unspecified Edema Hyperlipidemia, unspecified ([facility] [place]) Encounter for smoking cessation counseling Venous ulcer of right leg ([facility] [place]) Antibiotic-induced yeast infection Chronic obstructive pulmonary disease, unspecified documented in this encounter [facility] HealthcareEvaluation note* Diagnosis Obstructive sleep apnea- Primary Obstructive sleep apnea (adult) (pediatric) Pulmonary emphysema, unspecified emphysema type ([facility]) Primary hypertension ([facility]) Unspecified essential hypertension Type 2 diabetes mellitus with complication, with long-term current use of insulin ([facility] [place]) Anxiety and depression ([facility] [place]) Bilateral lower extremity edema Pulmonary emphysema, unspecified emphysema type ([facility])- Primary Primary hypertension ([facility]) Unspecified essential hypertension Class 3 severe obesity with serious comorbidity and body mass index (BMI) of 50.0 to 59.9 in adult, unspecified obesity type Obstructive sleep apnea Obstructive sleep apnea (adult) (pediatric) Pulmonary hypertension ([facility]) Other chronic pulmonary heart diseases Tobacco user Tobacco use disorder Cardiomegaly Primary hypertension ([facility])- Primary Unspecified essential hypertension Gastroesophageal reflux disease, unspecified whether esophagitis present Type 2 diabetes mellitus with complication, with long-term current use of insulin ([facility]) Mixed hyperlipidemia ([facility]) Mixed hyperlipidemia Tobacco user Tobacco use disorder Encounter for screening mammogram for malignant neoplasm of breast Chronic obstructive pulmonary disease, unspecified Other specified chronic obstructive pulmonary disease Anxiety and depression ([facility]) Edema, unspecified Edema Hyperlipidemia, unspecified ([facility]) Diabetic polyneuropathy associated with type 2 diabetes mellitus (CMS/[facility]) Gout, unspecified cause, unspecified chronicity, unspecified site Non-seasonal allergic rhinitis, unspecified trigger Bilateral lower extremity edema COPD exacerbation (CMS/HCC) Obstructive chronic bronchitis with exacerbation Pulmonary emphysema, unspecified emphysema type (CMS/HCC) Venous insufficiency Unspecified venous (peripheral) insufficiency Candidiasis of breast COPD exacerbation (CMS/[facility])- Primary Obstructive chronic bronchitis with exacerbation Pulmonary hypertension (CMS/[facility]) Other chronic pulmonary heart diseases Class 3 severe obesity with serious comorbidity and body mass index (BMI) of 50.0 to 59.9 in adult, unspecified obesity type Encounter for subsequent annual wellness visit (AWV) in Medicare patient- Primary Type 2 diabetes mellitus with unspecified complications Pulmonary emphysema, unspecified emphysema type (CMS/[facility]) Moderate persistent asthma without complication (CMS/[facility]) Primary hypertension (CMS/[facility]) Unspecified essential hypertension Type 2 diabetes mellitus with complication, with long-term current use of insulin ([facility]) Class 3 severe obesity with serious comorbidity and body mass index (BMI) of 50.0 to 59.9 in adult, unspecified obesity type Tobacco user Tobacco use disorder Other headache syndrome Malignant neoplasm of cervix uteri, unspecified Other specified disorders of adrenal gland Major depressive disorder, single episode, mild (HCC) ([facility]) Major depressive disorder, single episode, mild 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 exposed Chronic respiratory failure, unspecified whether with hypoxia or hypercapnia Disorder of adrenal gland, unspecified Non-pressure chronic ulcer of other part of right lower leg limited to breakdown of skin (CMS/[facility]) Non-recurrent acute suppurative otitis media of left ear without spontaneous rupture of tympanic membrane Primary hypertension ([facility])- Primary Unspecified essential hypertension Insomnia Insomnia, unspecified Type 2 diabetes mellitus with complication, with long-term current use of insulin (CMS/[facility]) Non-seasonal allergic rhinitis, unspecified trigger Type 2 diabetes mellitus with unspecified complications Anxiety and depression (CMS/[facility]) Gastro-esophageal reflux disease without esophagitis Edema, unspecified Edema Diabetic polyneuropathy associated with type 2 diabetes mellitus (CMS/[facility]) Chronic obstructive pulmonary disease, unspecified Pulmonary emphysema, unspecified emphysema type (CMS/HCC) Bilateral lower extremity edema Tobacco user Tobacco use disorder Hyperpigmentation of skin Other dyschromia Primary hypertension ([facility])- Primary Unspecified essential hypertension Diabetic polyneuropathy associated with type 2 diabetes mellitus ([facility]) Pulmonary emphysema, unspecified emphysema type ([facility]) Critical limb ischemia of right lower extremity ([facility]) PAD (peripheral artery disease) ([facility]) Unspecified peripheral vascular disease Gastroesophageal reflux disease, unspecified whether esophagitis present Bilateral lower extremity edema Venous ulcer of right leg ([facility]) Type 2 diabetes mellitus with complication, with long-term current use of insulin ([facility]) Tobacco user Tobacco use disorder Encounter for smoking cessation counseling Kidney stone Calculus of kidney Adrenal mass 1 cm to 4 cm in diameter ([facility]) Radiculopathy, lumbar region Thoracic or lumbosacral neuritis or radiculitis, unspecified Non-seasonal allergic rhinitis, unspecified trigger Type 2 diabetes mellitus with unspecified complications Anxiety and depression ([facility])- Primary Morbid (severe) obesity due to excess calories ([facility]) Body mass index (BMI) 50.0-59.9, adult ([facility]) Malignant neoplasm of cervix uteri, unspecified Diabetic polyneuropathy associated with type 2 diabetes mellitus ([facility]) Chronic diastolic heart failure ([facility] Chronic diastolic heart failure Primary hypertension ([facility]) Unspecified essential hypertension 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 Gastroesophageal reflux disease, unspecified whether esophagitis present Bilateral lower extremity edema Type 2 diabetes mellitus with complication, with long-term current use of insulin ([facility]) Tobacco user Tobacco use disorder Mixed hyperlipidemia ([facility]) Mixed hyperlipidemia Gout, unspecified cause, unspecified chronicity, unspecified site Vitamin deficiency Unspecified vitamin deficiency Gastro-esophageal reflux disease without esophagitis Edema, unspecified Edema Hyperlipidemia, unspecified ([facility]) Encounter for smoking cessation counseling Venous ulcer of right leg ([facility]) Antibiotic-induced yeast infection Primary hypertension ([facility])- Primary Unspecified essential hypertension Diabetic polyneuropathy associated with type 2 diabetes mellitus ([facility]) Chronic diastolic heart failure ([facility]) Chronic diastolic heart failure Bilateral lower extremity edema Morbid (severe) obesity due to excess calories ([facility]) Type 2 diabetes mellitus with complication, with long-term current use of insulin ([facility]) Anxiety and depression ([facility]) Cigarette nicotine dependence without complication Encounter for screening mammogram for malignant neoplasm of breast Insomnia Insomnia, unspecified Non-seasonal allergic rhinitis, unspecified trigger Type 2 diabetes mellitus with unspecified complications Vitamin D deficiency, unspecified Gastro-esophageal reflux disease without esophagitis PAD (peripheral artery disease) ([facility]) Unspecified peripheral vascular disease Gastroesophageal reflux disease, unspecified whether esophagitis present Venous ulcer of right leg ([facility]) documented in this encounter [facility] HealthcareEvaluation note* Diagnosis Obstructive sleep apnea- [...] to 59.9 in adult, unspecified obesity type ([facility]) Obstructive sleep apnea Obstructive sleep apnea [...] to 59.9 in adult, unspecified obesity type ([facility]) Encounter for subsequent annual wellness visit (AWV) in Medicare patient- Primary Type 2 diabetes mellitus with unspecified complications (HCC) Pulmonary emphysema, unspecified emphysema type (HCC) Moderate persistent asthma without complication (HCC) Primary hypertension Unspecified essential hypertension Type 2 diabetes mellitus with complication, with long-term current use of insulin ([facility]) Class 3 severe obesity with serious comorbidity and body mass index (BMI) of 50.0 to 59.9 in adult, unspecified obesity type ([facility]) Tobacco user Tobacco use disorder Other headache syndrome Malignant neoplasm of cervix uteri, unspecified ([facility]) Other specified disorders of adrenal gland ([facility]) Major depressive disorder, single episode, mild Major depressive disorder, single episode, mild 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 exposed ([facility]) Chronic respiratory failure, unspecified whether with hypoxia or hypercapnia ([facility]) Disorder of adrenal gland, unspecified ([facility]) Non-pressure chronic ulcer of other part of right lower leg limited to breakdown of skin ([facility]) Non-recurrent acute suppurative otitis media of left ear without spontaneous rupture of tympanic membrane Primary hypertension- Primary Unspecified essential hypertension Insomnia Insomnia, unspecified Type 2 diabetes mellitus with complication, with long-term current use of insulin ([facility]) Non-seasonal allergic rhinitis, unspecified trigger Type 2 diabetes mellitus with unspecified complications ([facility]) Anxiety and depression Gastro-esophageal reflux disease without esophagitis Edema, unspecified Edema Diabetic polyneuropathy associated with type 2 diabetes mellitus ([facility]) Chronic obstructive pulmonary disease, unspecified ([facility]) Pulmonary emphysema, unspecified emphysema type ([facility]) Bilateral lower extremity edema Tobacco user Tobacco use disorder Hyperpigmentation of skin Other dyschromia Primary hypertension- Primary Unspecified essential hypertension Diabetic polyneuropathy associated with type 2 diabetes mellitus ([facility]) Pulmonary emphysema, unspecified emphysema type ([facility]) Critical limb ischemia of right lower extremity ([facility]) PAD (peripheral artery disease) Unspecified peripheral vascular disease Gastroesophageal reflux disease, unspecified whether esophagitis present Bilateral lower extremity edema Venous ulcer of right leg ([facility]) Type 2 diabetes mellitus with complication, with long-term current use of insulin ([facility]) Tobacco user Tobacco use disorder Encounter for smoking cessation counseling Kidney stone Calculus of kidney Adrenal mass 1 cm to 4 cm in diameter ([facility]) Radiculopathy, lumbar region Thoracic or lumbosacral neuritis or radiculitis, unspecified Non-seasonal allergic rhinitis, unspecified trigger Type 2 diabetes mellitus with unspecified complications ([facility]) Anxiety and depression- Primary Morbid (severe) obesity due to excess calories ([facility]) Body mass index (BMI) 50.0-59.9, adult ([facility]) Malignant neoplasm of cervix uteri, unspecified (HCC) [...] Morbid (severe) obesity due to excess calories ([facility]) Type 2 diabetes mellitus with complication, with long-term current use of insulin ([facility]) Anxiety and depression Cigarette nicotine dependence [...] of left lower extremity- Primary COPD exacerbation ([facility]) Obstructive chronic bronchitis with exacerbation Primary hypertension Unspecified essential hypertension Pulmonary hypertension (HCC) Other chronic pulmonary heart diseases Morbid (severe) obesity due to excess calories ([facility]) Type 2 diabetes mellitus with complication, with long-term current use of insulin ([facility]) Anxiety and depression Fever, unspecified fever cause Hyperlipidemia, unspecified Tobacco user Tobacco use disorder Encounter for smoking cessation counseling documented in this encounter [facility] HealthcareEvaluation note* Diagnosis Obstructive sleep apnea- Primary Obstructive sleep apnea (adult) (pediatric) Pulmonary emphysema, unspecified emphysema type ([facility]/HCC) Primary hypertension ([facility]) Unspecified essential hypertension Type 2 diabetes mellitus with complication, with long-term current use of insulin ([facility]) Anxiety and depression ([facility]) Bilateral lower extremity edema Pulmonary emphysema, unspecified emphysema type ([facility]/HCC)- Primary Primary hypertension ([facility]) Unspecified essential hypertension Class 3 severe obesity with serious comorbidity and body mass index (BMI) of 50.0 to 59.9 in adult, unspecified obesity type Obstructive sleep apnea Obstructive sleep apnea (adult) (pediatric) Pulmonary hypertension ([facility]) Other chronic pulmonary heart diseases Tobacco user Tobacco use disorder Cardiomegaly Primary hypertension ([facility])- Primary Unspecified essential hypertension Gastroesophageal reflux disease, unspecified whether esophagitis present Type 2 diabetes mellitus with complication, with long-term current use of insulin ([facility]) Mixed hyperlipidemia ([facility]) Mixed hyperlipidemia Tobacco user Tobacco use disorder Encounter for screening mammogram for malignant neoplasm of breast Chronic obstructive pulmonary disease, unspecified Other specified chronic obstructive pulmonary disease Anxiety and depression ([facility]) Edema, unspecified Edema Hyperlipidemia, unspecified ([facility]) Diabetic polyneuropathy associated with type 2 diabetes mellitus ([facility]) Gout, unspecified cause, unspecified chronicity, unspecified site Non-seasonal allergic rhinitis, unspecified trigger Bilateral lower extremity edema COPD exacerbation ([facility]) Obstructive chronic bronchitis with exacerbation Pulmonary emphysema, unspecified emphysema type ([facility]) Venous insufficiency Unspecified venous (peripheral) insufficiency Candidiasis of breast COPD exacerbation ([facility])- Primary Obstructive chronic bronchitis with exacerbation Pulmonary hypertension ([facility]) Other chronic pulmonary heart diseases Class 3 severe obesity with serious comorbidity and body mass index (BMI) of 50.0 to 59.9 in adult, unspecified obesity type Encounter for subsequent annual wellness visit (AWV) in Medicare patient- Primary Type 2 diabetes mellitus with unspecified complications Pulmonary emphysema, unspecified emphysema type ([facility]) Moderate persistent asthma without complication ([facility]) Primary hypertension ([facility]) Unspecified essential hypertension Type 2 diabetes mellitus with complication, with long-term current use of insulin ([facility]) Class 3 severe obesity with serious comorbidity and body mass index (BMI) of 50.0 to 59.9 in adult, unspecified obesity type Tobacco user Tobacco use disorder Other headache syndrome Malignant neoplasm of cervix uteri, unspecified Other specified disorders of adrenal gland Major depressive disorder, single episode, mild (HCC) ([facility]) Major depressive disorder, single episode, mild 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 exposed Chronic respiratory failure, unspecified whether with hypoxia or hypercapnia Disorder of adrenal gland, unspecified Non-pressure chronic ulcer of other part of right lower leg limited to breakdown of skin ([facility]) Non-recurrent acute suppurative otitis media of left ear without spontaneous rupture of tympanic membrane Primary hypertension ([facility])- Primary Unspecified essential hypertension Insomnia Insomnia, unspecified Type 2 diabetes mellitus with complication, with long-term current use of insulin ([facility]) Non-seasonal allergic rhinitis, unspecified trigger Type 2 diabetes mellitus with unspecified complications Anxiety and depression ([facility]) Gastro-esophageal reflux disease without esophagitis Edema, unspecified Edema Diabetic polyneuropathy associated with type 2 diabetes mellitus ([facility]) Chronic obstructive pulmonary disease, unspecified Pulmonary emphysema, unspecified emphysema type ([facility]) Bilateral lower extremity edema Tobacco user Tobacco use disorder Hyperpigmentation of skin Other dyschromia Primary hypertension ([facility])- Primary Unspecified essential hypertension Diabetic polyneuropathy associated with type 2 diabetes mellitus ([facility]) Pulmonary emphysema, unspecified emphysema type ([facility]) Critical limb ischemia of right lower extremity ([facility]) PAD (peripheral artery disease) ([facility]) Unspecified peripheral vascular disease Gastroesophageal reflux disease, unspecified whether esophagitis present Bilateral lower extremity edema Venous ulcer of right leg ([facility]) Type 2 diabetes mellitus with complication, with long-term current use of insulin ([facility]) Tobacco user Tobacco use disorder Encounter for smoking cessation counseling Kidney stone Calculus of kidney Adrenal mass 1 cm to 4 cm in diameter ([facility]) Radiculopathy, lumbar region Thoracic or lumbosacral neuritis or radiculitis, unspecified Non-seasonal allergic rhinitis, unspecified trigger Type 2 diabetes mellitus with unspecified complications Anxiety and depression ([facility])- Primary Morbid (severe) obesity due to excess calories ([facility]) Body mass index (BMI) 50.0-59.9, adult ([facility]) Malignant neoplasm of cervix uteri, unspecified Diabetic polyneuropathy associated with type 2 diabetes mellitus ([facility]) Chronic diastolic heart failure ([facility]) Chronic diastolic heart failure Primary hypertension ([facility]) Unspecified essential hypertension 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 Gastroesophageal reflux disease, unspecified whether esophagitis present Bilateral lower extremity edema Type 2 diabetes mellitus with complication, with long-term current use of insulin ([facility]) Tobacco user Tobacco use disorder Mixed hyperlipidemia ([facility]) Mixed hyperlipidemia Gout, unspecified cause, unspecified chronicity, unspecified site Vitamin deficiency Unspecified vitamin deficiency Gastro-esophageal reflux disease without esophagitis Edema, unspecified Edema Hyperlipidemia, unspecified ([facility]) Encounter for smoking cessation counseling Venous ulcer of right leg ([facility]) Antibiotic-induced yeast infection Primary hypertension ([facility])- Primary Unspecified essential hypertension Diabetic polyneuropathy associated with type 2 diabetes mellitus ([facility]) Chronic diastolic heart failure ([facility] [place]) Chronic diastolic heart failure Bilateral lower extremity edema Morbid (severe) obesity due to excess calories ([facility]) Type 2 diabetes mellitus with complication, with long-term current use of insulin ([facility] [place]) Anxiety and depression ([facility]) Cigarette nicotine dependence without complication Encounter for screening mammogram for malignant neoplasm of breast Insomnia Insomnia, unspecified Non-seasonal allergic rhinitis, unspecified trigger Type 2 diabetes mellitus with unspecified complications Vitamin D deficiency, unspecified Gastro-esophageal reflux disease without esophagitis PAD (peripheral artery disease) ([facility] [place]) Unspecified peripheral vascular disease Gastroesophageal reflux disease, unspecified whether esophagitis present Venous ulcer of right leg ([facility] [place]) Cellulitis of left lower extremity- Primary COPD exacerbation ([facility] [place]) Obstructive chronic bronchitis with exacerbation Primary hypertension ([facility] [place]) Unspecified essential hypertension Pulmonary hypertension ([facility]) Other chronic pulmonary heart diseases Morbid (severe) obesity due to excess calories ([facility] [place]) Type 2 diabetes mellitus with complication, with long-term current use of insulin ([facility]) Anxiety and depression ([facility]) Fever, unspecified fever cause documented in this encounter [facility] HealthcareEvaluation note* Diagnosis Obstructive sleep apnea- Primary Obstructive sleep apnea (adult) (pediatric) Pulmonary emphysema, unspecified emphysema type (HCC) Primary hypertension Unspecified essential hypertension Type 2 diabetes mellitus with complication, with long-term current use of insulin ([facility]) Anxiety and depression Bilateral lower extremity edema Pulmonary emphysema, unspecified emphysema type (HCC)- Primary Primary hypertension Unspecified essential hypertension Class 3 severe obesity with serious comorbidity and body mass index (BMI) of 50.0 to 59.9 in adult, unspecified obesity type ([facility]) Obstructive sleep apnea Obstructive sleep apnea [...] polyneuropathy associated with type 2 diabetes mellitus ([facility]) Gout, unspecified cause, unspecified chronicity, unspecified site Non-seasonal allergic rhinitis, unspecified trigger Bilateral lower extremity edema COPD exacerbation (HCC) Obstructive chronic bronchitis with exacerbation Pulmonary emphysema, unspecified emphysema type (HCC) Venous insufficiency Unspecified venous (peripheral) insufficiency Candidiasis of breast COPD exacerbation (HCC)- Primary Obstructive chronic bronchitis with exacerbation Pulmonary hypertension ([facility]) Other chronic pulmonary heart diseases Class 3 severe obesity with serious comorbidity and body mass index (BMI) of 50.0 to 59.9 in adult, unspecified obesity type ([facility] Encounter for subsequent annual wellness visit (AWV) in Medicare patient- Primary Type 2 diabetes mellitus with unspecified complications ([facility]) Pulmonary emphysema, unspecified emphysema type ([facility]) Moderate persistent asthma without complication ([facility]) Primary hypertension Unspecified essential hypertension Type 2 diabetes mellitus with complication, with long-term current use of insulin ([facility]) Class 3 severe obesity with serious comorbidity and body mass index (BMI) of 50.0 to 59.9 in adult, unspecified obesity type ([facility] Tobacco user Tobacco use disorder Other headache syndrome Malignant neoplasm of cervix uteri, unspecified (HCC) Other specified disorders of adrenal gland ([facility]) Major depressive disorder, single episode, mild Major depressive disorder, single episode, mild 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 exposed ([facility]) Chronic respiratory failure, unspecified whether with [...] Critical limb ischemia of right lower extremity ([facility]) PAD (peripheral artery disease) Unspecified peripheral vascular disease Gastroesophageal reflux disease, unspecified whether esophagitis present Bilateral lower extremity edema Venous ulcer of right leg (HCC) Type 2 diabetes mellitus with complication, with long-term current use of insulin ([facility]) Tobacco user Tobacco use disorder Encounter for smoking cessation counseling Kidney stone Calculus of kidney Adrenal mass 1 cm to 4 cm in diameter ([facility]) Radiculopathy, lumbar region Thoracic or lumbosacral neuritis or radiculitis, unspecified Non-seasonal allergic rhinitis, unspecified trigger Type 2 diabetes mellitus with unspecified complications ([facility]) Anxiety and depression- Primary Morbid (severe) obesity due to excess calories ([facility]) Body mass index (BMI) 50.0-59.9, adult ([facility]) Malignant neoplasm of cervix uteri, unspecified ([facility]) Diabetic polyneuropathy associated with type 2 diabetes mellitus ([facility]) Chronic diastolic heart failure (HCC) Chronic diastolic heart failure Primary hypertension Unspecified essential hypertension 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 ([facility]) Gastroesophageal reflux disease, unspecified whether esophagitis present Bilateral lower extremity edema Type 2 diabetes mellitus with complication, with long-term current use of insulin ([facility]) Tobacco user Tobacco use disorder Mixed [...] Morbid (severe) obesity due to excess calories ([facility]) Type 2 diabetes mellitus with complication, with long-term current use of insulin ([facility]) Anxiety and depression Cigarette nicotine dependence [...] Morbid (severe) obesity due to excess calories ([facility]) Type 2 diabetes mellitus with complication, [...] Morbid (severe) obesity due to excess calories ([facility]) Type 2 diabetes mellitus with hyperglycemia, with long-term current use of insulin (HCC) documented in this encounter [facility] HealthcareEvaluation note* Diagnosis Obstructive sleep apnea- Primary [...] to 59.9 in adult, unspecified obesity type ([facility]) Obstructive sleep apnea Obstructive sleep apnea [...] to 59.9 in adult, unspecified obesity type ([facility]) Encounter for subsequent annual wellness visit (AWV) in Medicare patient- Primary Type 2 diabetes mellitus with unspecified complications (HCC) Pulmonary emphysema, unspecified emphysema type ([facility]) Moderate persistent asthma without complication (HCC) Primary hypertension Unspecified essential hypertension Type 2 diabetes mellitus with complication, with long-term current use of insulin ([facility]) Class 3 severe obesity with serious comorbidity and body mass index (BMI) of 50.0 to 59.9 in adult, unspecified obesity type ([facility]) Tobacco user Tobacco use disorder Other headache syndrome Malignant neoplasm of cervix uteri, unspecified (HCC) Other specified disorders of adrenal gland (HCC) Major depressive disorder, single episode, mild Major depressive disorder, single episode, mild 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 exposed ([facility]) Chronic respiratory failure, unspecified whether with [...] Critical limb ischemia of right lower extremity ([facility]) PAD (peripheral artery disease) Unspecified peripheral vascular disease Gastroesophageal reflux disease, unspecified whether esophagitis present Bilateral lower extremity edema Venous ulcer of right leg (HCC) Type 2 diabetes mellitus with complication, with long-term current use of insulin (HCC) Tobacco user Tobacco use disorder Encounter for smoking cessation counseling Kidney stone Calculus of kidney Adrenal mass 1 cm to 4 cm in diameter ([facility]) Radiculopathy, lumbar region Thoracic or lumbosacral neuritis or radiculitis, unspecified Non-seasonal allergic rhinitis, unspecified trigger Type 2 diabetes mellitus with unspecified complications ([facility]) Anxiety and depression- Primary Morbid (severe) obesity due to excess calories ([facility]) Body mass index (BMI) 50.0-59.9, adult ([facility]) Malignant neoplasm of cervix uteri, unspecified ([facility]) Diabetic polyneuropathy associated with type 2 diabetes mellitus (HCC) Chronic diastolic heart failure (HCC) Chronic diastolic heart failure Primary hypertension Unspecified essential hypertension 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 ([facility]) Gastroesophageal reflux disease, unspecified whether esophagitis present Bilateral lower extremity edema Type 2 diabetes mellitus with complication, with long-term current use of insulin ([facility]) Tobacco user Tobacco use disorder Mixed [...] Morbid (severe) obesity due to excess calories ([facility]) Type 2 diabetes mellitus with complication, with long-term current use of insulin ([facility]) Anxiety and depression Cigarette nicotine dependence [...] Morbid (severe) obesity due to excess calories ([facility]) Type 2 diabetes mellitus with complication, with long-term current use of insulin ([facility]) Anxiety and depression Fever, unspecified fever cause Encounter for subsequent annual wellness visit (AWV) in Medicare patient- Primary Mixed hyperlipidemia Mixed hyperlipidemia Type 2 diabetes mellitus with complication, with long-term current use of insulin ([facility]) Bilateral lower extremity edema Gastro-esophageal reflux disease without esophagitis Chronic diastolic heart failure (HCC) Chronic diastolic heart failure Primary hypertension Unspecified essential hypertension Pulmonary hypertension (HCC) Other chronic pulmonary heart diseases Diabetic polyneuropathy associated with type 2 diabetes mellitus ([facility]) Pulmonary emphysema, unspecified emphysema type ([facility]) Moderate persistent asthma without complication ([facility]) Insomnia Insomnia, unspecified Non-seasonal allergic rhinitis, unspecified trigger Type 2 diabetes mellitus with unspecified complications ([facility]) Anxiety and depression Antibiotic-induced yeast infection Chronic obstructive pulmonary disease, unspecified ([facility]) Hyperlipidemia, unspecified Vaginal yeast infection Candidiasis of vulva and vagina Morbid (severe) obesity due to excess calories ([facility]) Encounter for dietary consultation- Primary Type 2 diabetes mellitus with hyperglycemia, with long-term current use of insulin ([facility]) Vitamin D deficiency Primary hypertension Unspecified essential hypertension Insulin long-term use ([facility]) Encounter for long-term (current) use of insulin Hyperlipemia, mixed Mixed hyperlipidemia Microalbuminuria Proteinuria Class 3 severe obesity due to excess calories with serious comorbidity and body mass index (BMI) of 50.0 to 59.9 in adult ([facility]) documented in this encounter [facility] HealthcareEvaluation note* Diagnosis Obstructive sleep apnea- Primary Obstructive sleep apnea (adult) (pediatric) Pulmonary emphysema, unspecified emphysema type ([facility]) Primary hypertension Unspecified essential hypertension Type 2 diabetes mellitus with complication, with long-term current use of insulin ([facility]) Anxiety and depression Bilateral lower extremity edema Pulmonary emphysema, unspecified emphysema type (HCC)- Primary Primary hypertension Unspecified essential hypertension Class 3 severe obesity with serious comorbidity and body mass index (BMI) of 50.0 to 59.9 in adult, unspecified obesity type ([facility]) Obstructive sleep apnea Obstructive sleep apnea (adult) [...] to 59.9 in adult, unspecified obesity type ([facility]) Encounter for subsequent annual wellness visit (AWV) [...] to 59.9 in adult, unspecified obesity type ([facility]) Tobacco user Tobacco use disorder Other headache [...] complication, with long-term current use of insulin ([facility]) Non-seasonal allergic rhinitis, unspecified trigger Type 2 diabetes mellitus with unspecified complications (HCC) Anxiety and depression Gastro-esophageal reflux disease without esophagitis Edema, unspecified Edema Diabetic polyneuropathy associated with type 2 diabetes mellitus ([facility]) Chronic obstructive pulmonary disease, unspecified (HCC) Pulmonary emphysema, unspecified emphysema type (HCC) Bilateral lower extremity edema Tobacco user Tobacco use disorder Hyperpigmentation of skin Other dyschromia Primary hypertension- Primary Unspecified essential hypertension Diabetic polyneuropathy associated with type 2 diabetes mellitus ([facility]) Pulmonary emphysema, unspecified emphysema type ([facility]) Critical limb ischemia of right lower extremity ([facility]) PAD (peripheral artery disease) Unspecified peripheral vascular disease Gastroesophageal reflux disease, unspecified whether esophagitis present Bilateral lower extremity edema Venous ulcer of right leg ([facility]) Type 2 diabetes mellitus with complication, with long-term current use of insulin ([facility]) Tobacco user Tobacco use disorder Encounter for smoking cessation counseling Kidney stone Calculus of kidney Adrenal mass 1 cm to 4 cm in diameter ([facility]) Radiculopathy, lumbar region Thoracic or lumbosacral neuritis or radiculitis, unspecified Non-seasonal allergic rhinitis, unspecified trigger Type 2 diabetes mellitus with unspecified complications ([facility]) Anxiety and depression- Primary Morbid (severe) obesity due to excess calories ([facility] Body mass index (BMI) 50.0-59.9, adult ([facility] Malignant neoplasm of cervix uteri, unspecified ([facility]) Diabetic polyneuropathy associated with type 2 diabetes mellitus ([facility]) Chronic diastolic heart failure (HCC) Chronic diastolic heart failure Primary hypertension Unspecified essential hypertension 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 ([facility]) Gastroesophageal reflux disease, unspecified whether esophagitis present Bilateral lower extremity edema Type 2 diabetes mellitus with complication, with long-term current use of insulin ([facility]) Tobacco user Tobacco use disorder Mixed hyperlipidemia Mixed hyperlipidemia Gout, unspecified cause, unspecified chronicity, unspecified site Vitamin deficiency Unspecified vitamin deficiency Gastro-esophageal reflux disease without esophagitis Edema, unspecified Edema Hyperlipidemia, unspecified Encounter for smoking cessation counseling Venous ulcer of right leg ([facility]) Antibiotic-induced yeast infection Primary hypertension- Primary Unspecified essential hypertension Diabetic polyneuropathy associated with type 2 diabetes mellitus (HCC) Chronic diastolic heart failure (HCC) Chronic diastolic heart failure Bilateral lower extremity edema Morbid (severe) obesity due to excess calories ([facility]) Type 2 diabetes mellitus with complication, [...] Morbid (severe) obesity due to excess calories ([facility]) Type 2 diabetes mellitus with complication, [...] Morbid (severe) obesity due to excess calories ([facility]) Tobacco user Tobacco use disorder Encounter for smoking cessation counseling documented in this encounter [facility] Healthcare[facility] general Narrative - Reported* Type Description [...] History sepsis 2010 Hospitalization History SEE ABOVE [facility] Other Hospital course Narrative No data available for this section [facility] progress note No data available for this section [facility] reason for referral (narrative) , Referral to Dr. Cortés Referred by: REGLA PHIPPS, Elbert Joya [facility] Advance Directives No Advanced Directives Records FoundDocuments on File Type Date Recorded Patient Communication Consultant Expl anation Advance Directives and Living Will Power of Grain Manager Summary Purpose Family History No Family History Records FoundNo Family History Records FoundNo Family History Records FoundNo Family History Records Found No data available for this section No Family History Records FoundNo Family History Records FoundNo Family History Records Found Additional Source Comments INFORMATION SOURCE (unrecogn ized section and content) DATE CREATED AUTHOR 10/30/2019 [facility] DATE CREATED AUTHOR AUTHOR'S ORGANIZ ATION 09/15/2020 [facility] DATE CREATED AUTHOR AUTHOR'S ORGANIZ ATION 12/19/2022 [facility] DATE CREATED AUTHOR AUTHOR'S ORGANIZ ATION 06/03/2024 [facility] DATE CREATED AUTHOR AUTHOR'S ORGANIZ ATION 01/30/2025 [facility] EPIC DATE CREATED AUTHOR AUTHOR'S ORGANIZ ATION 02/06/2025 [facility] DATE CREATED AUTHOR AUTHOR'S ORGANIZ ATION 03/13/2025 [facility] Care Team (unrecognized sect ion and content) Vp Rheumatology Relationship Specialty Start Date End Date Ty Amin MD PCP - General Family Medicine 01/05/23 Vp Rheumatology Relationship Specialty Start Date End Date Ty Amin MD PCP - General Family Medicine 01/05/23 Vp Rheumatology Relationship Specialty Start Date End Date Ty Amin MD [address] [place] [address] PCP - General Family Medicine 09/20/23 Mckayla Blas NP [address] [place] [address] PCP - [facility] 09/07/23 09/05/90 Mckayla Blas NP [address] [place] [address] Nurse Practitioner Family Medicine 09/20/23 Vp Rheumatology Relationship Specialty Start Date End Date Ty Amin MD [address] [place] [address] PCP - General Family Medicine 09/20/23 Mckayla Blas NP [address] [place] [address] [facility] 09/07/23 09/05/90 Mckayla Blas NP [address] [place] [address] Nurse Practitioner Family Medicine 09/20/23 Vp Rheumatology Relationship Specialty Start Date End Date Ty Amin MD [address] [place] [address] PCP - General Family Medicine 09/20/23 Mckayla Blas NP [address] [place] [address] [facility] 09/07/23 09/05/90 Mckayla Blas NP [address] [place] [address] Nurse Practitioner Family Medicine 09/20/23 Vp Rheumatology Relationship Specialty Start Date End Date Ty Amin MD [address] [place] [address] PCP - General Family Medicine 09/20/23 Mckayla Blas NP [address] [place] [address] PCP - [facility] 09/07/23 09/05/90 Mckayla Blas NP [address] [place] [address] Nurse Practitioner Family Medicine 09/20/23 Vp Rheumatology Relationship Specialty Start Date End Date Ty Amin MD [address] [place] [address] PCP - General Family Medicine 09/20/23 Mckayla Blas NP [address] [place] [address] PCP - [facility] 09/07/23 09/05/90 Mckayla Blas NP [address] [place] [address] Nurse Practitioner Family Medicine 09/20/23 Vp Rheumatology Relationship Specialty Start Date End Date Ty Amin MD [address] [place] [address] PCP - General Family Medicine 09/20/23 Mckayla Blas NP [address] [place] [address] PCP - [facility] 09/07/23 09/05/90 Mckayla Blas NP [address] [place] [address] Nurse Practitioner Family Medicine 09/20/23 Vp Rheumatology Relationship Specialty Start Date End Date Ty Amin MD [address] [place] [address] PCP - General Family Medicine 09/20/23 Mckayla Blas NP [address] [place] [address] [facility] 09/07/23 09/05/90 Mckayla Blas NP [address] [place] [address] Nurse Practitioner Family Medicine 09/20/23 Vp Rheumatology Relationship Specialty Start Date End Date Ty Amin MD [address] [place] [address] PCP - General Family Medicine 09/20/23 Mckayla Blas NP [address] [place] [address] [facility] 09/07/23 09/05/90 Mckayla Blas NP [address] [place] [address] Nurse Practitioner Family Medicine 09/20/23 Vp Rheumatology Relationship Specialty Start Date End Date Ty Amin MD [address] [place] [address] PCP - General Family Medicine 09/20/23 Mckayla Blas NP [address] [place] [address] PCP - [facility] 09/07/23 09/05/90 Mckayla Blas NP [address] [place] [address] Nurse Practitioner Family Medicine 09/20/23 Vp Rheumatology Relationship Specialty Start Date End Date Ty Amin MD [address] [place] [address] PCP - General Family Medicine 09/20/23 Mckayla Blas NP [address] [place] [address] PCP - [facility] 09/07/23 09/05/90 Mckayla Blas NP [address] [place] [address] Nurse Practitioner Family Medicine 09/20/23 Vp Rheumatology Relationship Specialty Start Date End Date Ty Amin MD [address] [place] [address] PCP - General Family Medicine 09/20/23 Mckayla Blas NP [address] [place] [address] PCP - [facility] 09/07/23 09/05/90 Mckayla Blas NP [address] [place] [address] Nurse Practitioner Family Medicine 09/20/23 Vp Rheumatology Relationship Specialty Start Date End Date Ty Amin MD [address] [place] [address] PCP - General Family Medicine 09/20/23 Mckayla Blas NP [address] [place] [address] [facility] 09/07/23 09/05/90 Mckayla Blas NP [address] [place] [address] Nurse Practitioner Family Medicine 09/20/23 Vp Rheumatology Relationship Specialty Start Date End Date Ty Amin MD [address] [place] [address] PCP - General Family Medicine 09/20/23 Mckayla Blas NP [address] [place] [address] [facility] 09/07/23 09/05/90 Mckayla Blas NP [address] [place] [address] Nurse Practitioner Family Medicine 09/20/23 Vp Rheumatology Relationship Specialty Start Date End Date Ty Amin MD [address] [place] [address] PCP - General Family Medicine 09/20/23 Mckayla Blas NP [address] [place] [address] PCP - [facility] 09/07/23 09/05/90 Mckayla Blas NP [address] [place] [address] Nurse Practitioner Family Medicine 09/20/23 Vp Rheumatology Relationship Specialty Start Date End Date Ty Amin MD [address] [place] [address] PCP - General Family Medicine 09/20/23 Mckayla Blas NP [address] [place] [address] PCP - [facility] 09/07/23 09/05/90 Mckayla Blas NP [address] [place] [address] Nurse Practitioner Family Medicine 09/20/23 Vp Rheumatology Relationship Specialty Start Date End Date Ty Amin MD [address] [place] [address] PCP - General Family Medicine 09/20/23 Mckayla Blas NP [address] [place] [address] PCP - [facility] 09/07/23 09/05/90 Mckayla Blas NP [address] [place] [address] Nurse Practitioner Family Medicine 09/20/23 Vp Rheumatology Relationship Specialty Start Date End Date Ty Amin MD [address] [place] [address] PCP - General Family Medicine 09/20/23 Mckayla Blas NP [address] [place] [address] [facility] 09/07/23 09/05/90 Mckayla Blas NP [address] [place] [address] Nurse Practitioner Family Medicine 09/20/23 Vp Rheumatology Relationship Specialty Start Date End Date Ty Amin MD [address] [place] [address] PCP - General Family Medicine 09/20/23 Mckayla Blas NP [address] [place] [address] [facility] 09/07/23 09/05/90 Mckayla Blas NP [address] [place] [address] Nurse Practitioner Family Medicine 09/20/23 Vp Rheumatology Relationship Specialty Start Date End Date Ty Amin MD [address] [place] [address] PCP - General Family Medicine 09/20/23 Mckayla Blas NP [address] [place] [address] PCP - [facility] 09/07/23 09/05/90 Mckayla Blas NP [address] [place] [address] Nurse Practitioner Family Medicine 09/20/23 Vp Rheumatology Relationship Specialty Start Date End Date Ty Amin MD [address] [place] [address] PCP - General Family Medicine 09/20/23 Mckayla Blas NP [address] [place] [address] PCP - [facility] 09/07/23 09/05/90 Mckayla Blas NP [address] [place] [address] Nurse Practitioner Family Medicine 09/20/23 Vp Rheumatology Relationship Specialty Start Date End Date Ty Amin MD [address] [place] [address] PCP - General Family Medicine 09/20/23 Mckayla Blas NP [address] [place] [address] Nurse Practitioner Family Medicine 09/20/23 Vp Rheumatology Relationship Specialty Start Date End Date Ty Amin MD [address] [place] [address] PCP - General Family Medicine 09/20/23 Mckayla Blas NP [address] [place] [address] Nurse Practitioner Family Medicine 09/20/23 Vp Rheumatology Relationship Specialty Start Date End Date Ty Amin MD [address] [place] [address] PCP - General Family Medicine 09/20/23 Mckayla Blas NP [address] [place] [address] Nurse Practitioner Family Medicine 09/20/23 Vp Rheumatology Relationship Specialty Start Date End Date Ty Amin MD [address] [place] [address] PCP - General Family Medicine 09/20/23 Mckayla Blas NP [address] [place] [address] Nurse Practitioner Family Medicine 09/20/23 Vp Rheumatology Relationship Specialty Start Date End Date Ty Amin MD [address] [place] [address] PCP - General Family Medicine 09/20/23 Mckayla Blas NP [address] [place] [address] Nurse Practitioner Family Medicine 09/20/23 REASON FOR [...] BE BASED ON THE PRIMARY CLINICAL RECORDS. [employer] provides no warranty or guarantee of the accuracy or completeness of information in this document.
== END 2025-03-13 11:01 | disposition home or self-care (01) ==
LOC: WC 11:38
PROVIDERS: PCP Nurse Practitioner; Visit Provider Physician Assistant
DX: I87.311 Chronic venous hypertension (idiopathic) with ulcer of right lower extremity (principal); L97.812 Non-pressure chronic ulcer of other part of right lower leg with fat layer exposed
CPT/HCPCS: 29581

== ENCOUNTER 2025-03-16 11:00 | Outpatient (OUT) | payer MEDICARE, SELFPAY ==
--- OUTSIDE RECORDS SUMMARY | 2023-10-09 10:27 | XMS_ITS ---
Author Organization [facility] [place] Address [address] [place] [address] Care Team Providers Care Finishing Operator Name Role Phone Mckayla Blas CNP Primary Care Provider Armando Limon Unavailable [phone] REASON FOR VISIT Referral appt date/time Encounters Encounter Location Date Provider Diagnosis Pulmonary Medicine [place] [address] [place] [address] 10/09/2023 Armando Yañez Plan Of Treatment No Information Progress Notes * MACIASMitzi CARPIO LDOB:[birth year] (53 yo F)Acc No.[id number]:10/09/2023 Patient: Mitzi Rajan :1970 A ge:53 Y S ex:Female Address:[address] [place] [id number] * true * Date: Generated for Tiffanyi terrence/Luis/eTransmitting on: 0 03/17/2025 02:27 PM EDT
--- OUTSIDE RECORDS SUMMARY | 2024-12-02 05:47 | XMS_ITS ---
Author Organization The [facility] in [place] Address [address] [place] [address] Care Team Providers Care Special Education Administrator Name Role Phone Mckayla Blas CNP Primary Care Provider Armando Limon [phone] REASON FOR VISIT No Show Appointment Encounters Encounter Location Date Provider Diagnosis Pulmonary Medicine [place] [address] [place] [address] 12/02/2024 Armando Yañez Plan Of Treatment No Information Progress Notes * MACIASMitzi CARPIO LDOB:[birth year] (54 yo F)Acc No.[id number]:12/02/2024 Patient: Mitzi COX :1970 A ge:54 Y S ex:Female Address:[address] [place] [address] * true * Date: Generated for Vanessa ocampo/Luis/eTransmitting on: 0 03/17/2025 02:27 PM EDT
--- OUTSIDE RECORDS SUMMARY | 2025-03-17 14:27 | XMS_ITS | Encounter Summary ---
Author Organization [employer] [facility] tem Address [id number] [address] [place] [address] Care Team Providers Care Roll Tube Setter Name Role Phone JuanjoseMckayla carcamo Krystal PEREZN-MINE CAR DISPATCHER Primary Care Provider Encounter Details Date Type Department Care Team (Late st Contact Info) Description 05/31/2020 Orders Only [facility] [address] [place] [address] External, Scanning Provider Social History Tobacco Use [...] on filedocumented in this encounter Care Teams Roll Tube Setter Relationship Specialty Start Date End Date Mckayla Blas, FORESTRY CONTRACTOR-MINE CAR DISPATCHER [address] [place] [address] PCP - General Nurse Practitioner 09/25/18 documented as of this encounter
--- OUTSIDE RECORDS SUMMARY | 2025-03-17 14:27 | XMS_ITS | Encounter Summary ---
Author Organization [facility] Address [address] [facility] [place] [address] Care Team Providers Care Grinder Dresser Name Role Phone Ty Amin MD Primary Care Provider [phone] Mckayla Blas HAT MAKER Unavailable [phone] Encounter Details Date Type Department Care Team (Late st Contact Info) Description 02/18/2025 Abstract [facility] [address] [place] [address] Mckayla Blas NP [address] [place] [address] Social History Tobacco Use Types Packs/Day Years [...] Recorded Patient Health Questionnaire-2 Score 0 01/26/2025 [facility] [...] [facility] [address] [place] [address] Rain Souza MD [address] [place] [address] documented as of this encounter Visit Diagnoses Not on filedocumented in this encounter Additional Health Concerns Assessment Noted Time PHQ-9 Depression Total Score: 3 01/17/20 24 10:08 AM EDT documented as of this encounter Care Teams Grinder Dresser Relationship Specialty Start Date End Date Ty Amin MD PCP - General Family Medicine 09/20/23 Mckayla Blas NP Nurse Practitioner Family Medicine 09/20/23 documented as of this encounter
--- OUTSIDE RECORDS SUMMARY | 2025-03-17 14:27 | XMS_ITS | Encounter Summary ---
Author Organization [facility] Address [id number] [address] [place] [address] Care Team Providers Care Design Director Name Role Phone Mckayla Blas APRN-BASEBOARD HEATING INSTALLER Primary Care Provider Encounter Details Date Type Department Care Team (Late st Contact Info) Description 05/03/2020 [facility]phone [facility] [address] [place] [address] Tramaine Romero DO [address] [place] [address], [address] [id number] Social History Tobacco Use Types Packs/Day Years [...] on filedocumented in this encounter Care Teams Design Director Relationship Specialty Start Date End Date Mckayla Blas [place] [address] PCP - General Nurse Practitioner 09/25/18 documented as of this encounter
--- OUTSIDE RECORDS SUMMARY | 2025-03-17 14:27 | XMS_ITS | Encounter Summary ---
Author Organization [email or web address] Address [id number] [address] [place] [address] Care Team Providers Care Cross Country And Track And Field Coach Name Role Phone JuanjoseMckayla carcamo Krystal CERAMICS INSTRUCTOR-WORKERS COMPENSATION CLAIMS ASSISTANT Primary Care Provider Encounter Details Date Type Department Care Team (Late st Contact Info) Description 05/31/2020 Orders Only [facility] [address] [place] [address] External, Scanning Provider Social History Tobacco Use [...] ORDERABLES Final Result Performing Organization Address [facility] Co de Phone [...] ORDERABLES Final Result Performing Organization Address [facility] Co de Phone Number MANUALLY TRANSCRIBED RESULTS * Pulmonary function test (10/24/2018) us Scanning Provider External PFT ORDERABLES Final Result Performing Organization Address [facility] Co de Phone Number MANUALLY TRANSCRIBED RESULTS * Nuc stress Lexiscan/Exercise (12/12/2016) Anatomical Region Laterality Modality Chest N/A Nuclear Medicine us Scanning Provider External CV STRESS ORDERABLES Final Result documented in this encounter Visit Diagnoses Not on filedocumented in this encounter Care Teams Cross Country And Track And Field Coach Relationship Specialty Start Date End Date Mckayla Blas, CERAMICS INSTRUCTOR-WORKERS COMPENSATION CLAIMS ASSISTANT [address] [place] [address] PCP - General Nurse Practitioner 09/25/18 documented as of this encounter
--- OUTSIDE RECORDS SUMMARY | 2025-03-17 14:27 | XMS_ITS | Encounter Summary ---
Author Organization [facility] Address [address] [place] [address] Care Team Providers Care Electron Beam Operator Name Role Phone Ty Amin MD Primary Care Provider [phone] Ty Amin MD Primary Care Provider [phone] Mckayla Blas CHIEF HYDROELECTRIC STATION OPERATOR Unavailable [phone] Mckayla Blas CHIEF HYDROELECTRIC STATION OPERATOR Unavailable [phone] Encounter Details Date Type Department Care Team (Late st Contact Info) Description 08/31/2023 Clinisync Result Encounter [facility] External Department Unsolicited Andra Alcala PA [address] [place] [address] [address] [place], [place] [phone] Social History Tobacco Use Types Packs/Day Years [...] often do you attend chur ch or quaker services? 1 to 4 times [...] 07/10/2023 [facility] Occupational Stress Questionnaire [...] Endocrinology [address] [place] [address] Rain Souza MD [address] [place] [address] documented as of this encounter Procedures Procedure [...] PM EST 09/10/2023 2:29 PM EST Narrative [facility] - 09/16/2023 1:07 PM EDT us Generic External Data Provider LAB BLOOD ORDERAB LES Final Result Performing Organization Address City/[facility]/ZIP Co de Phone Number [facility] * BLOOD CULTURE 1 (09/10/2023 2:05 PM EST) Pathologist [facility] BLOOD CULTURE 1 Blood Culture 1 NG5D NO GROWTH AT 5 DAYS.^NO GROWTH AT 5 DAYS. [facility] 09/10/2023 2:05 PM EST 09/10/2023 2:28 PM EST Narrative [facility] - 09/16/2023 1:07 PM EDT us Generic External Data Provider LAB BLOOD ORDERAB LES Final Result Performing Organization Address [facility] de Phone Number [facility] * ECG 12-LEAD (08/31/2023 6:08 PM EST) Anatomical Region Laterality Modality Other 08/31/2023 6:08 PM EST Narrative 09/02/2023 7:32 [place] [address] Electrocardiograph Report Signed Patient: MITZI MACIAS MR#: [id number] : 1970 Acct:[id number] Age/Sex: 53 / F ADM Date: 08/31/23 Loc: MS 214-[address]: Jacqueline Becerra D.O. Ordering Physician: Andra Alcala Date of Service: 08/31/23 Procedure(s): ECG 12 lead Accession Number(s): [id number] cc: [facility] Test Date: 2023-08-31 Pat Name: MITZI MACIAS Department: Room: - Gender: Female Net Washer: : 1970 Requested By: MCKAYLA BLAS Order Number: [id number] Reading MD: LAURI DIOR Measurements Intervals Burke Rate: 102 P: 67 MN: 144 QRS: 52 QRSD: 72 T: 49 QT: 326 QTc: 385 Interpretive Statements 1120 Sinus tachycardia 4068 Nonspecific Twave abnormality 8102 Low QRS voltage in chest leads 9140 abnormal rhythm ECG Compared to ECG 12/04/2022 21:27:48 Electronically Signed On 09-02-2023 7:31:43 EST by LAURI DIOR Dictated By: Lauri Dior D.O. Signed By: 09/02/23731 DD/ 07 TD/TT: Vp Purchasing: Procedure Note Radiology, Radiologist, MD - 09/02/2023 [place] [address] Electrocardiograph Report Signed Patient: MITZI MACIAS LMR#: [id number] : 1970Acct:[id number] Age/Sex: 53 / FADM Date: 08/31/23 Loc: MS 214-[address]: Jacqueline Becerra D.O. Ordering Physician: Andra Alcala Date of Service: 08/31/23 Procedure(s): ECG 12 lead Accession Number(s): [id number] cc: [facility] Test Date: 2023-08-31 Pat Name: MITZI MACIAS Department: Room: - Gender: Female Net Washer: : 1970 Requested By: MCKAYLA BLAS Order Number: [id number] Reading MD: LAURI DIOR Measurements Intervals Burke Rate: 102 P: 67 MN: 144 QRS: 52 QRSD: 72 T: 49 QT: 326 QTc: 385 Interpretive Statements 1120 Sinus tachycardia 4068 Nonspecific Twave abnormality 8102 Low QRS voltage in chest leads 9140 abnormal rhythm ECG Compared to ECG 12/04/2022 21:27:48 Electronically Signed On 09-02-2023 7:31:43 EST by LAURI DIOR Dictated By: Lauri Dior D.O. Signed By:09/02/23731 DD/ 07 TD/TT: Vp Purchasing: [facility] Final Result documented in this encounter Visit Diagnoses Not on filedocumented in this encounter Care Teams Electron Beam Operator Relationship Specialty Start Date End Date Ty Amin MD PCP - General Family Medicine 01/05/23 09/19/23 Ty Amin MD PCP - General Family Medicine 09/20/23 Mckayla Blas NP [address] [place] [address] PCP - [facility] 09/07/23 01/11/25 Mckayla Blas NP Nurse Practitioner Family Medicine 09/20/23 documented as of this encounter
--- OUTSIDE RECORDS SUMMARY | 2025-03-17 14:27 | XMS_ITS | Encounter Summary ---
Author Organization [facility] Address [address] [place] [address] Care Team Providers Care Map Drafter Name Role Phone Ty Amin MD Primary Care Provider [phone] Mckayla Blas INSIDE SALES ASSOCIATE Unavailable [phone] Mckayla Blas NP Unavailable [phone] Encounter Details Date Type Department Care Team (Late st Contact Info) Description 07/14/2024 Orders Only [facility] [address] [place] [address] Mckayla Blas NP [address] [facility] [place] [address] Social History Tobacco Use Types Packs/Day Years [...] 1 01/17/2024 [facility] - Occupational Stress Questionnaire Answer Date [...] Visit [facility] [address] [place] [address] Rain Souza MD [address] [place] [address] documented as of this encounter Procedures Procedure [...] documented as of this encounter Care Teams Map Drafter Relationship Specialty Start Date End Date Ty Amin MD PCP - General Family Medicine 09/20/23 Mckayla Blas NP [address] [place] [address] PCP - [facility] 09/07/23 01/11/25 Mckayla Blas NP Nurse Practitioner Family Medicine 09/20/23 documented as of this encounter
--- OUTSIDE RECORDS SUMMARY | 2025-03-17 14:27 | XMS_ITS | Encounter Summary ---
Author Organization [facility] Address [address] [place] [address] Care Team Providers Care Court Recorder Name Role Phone Ty Amin MD Primary Care Provider [phone] Ty Amin MD Primary Care Provider [phone] Mckayla Blas GRANITE BLOCK PAVER Unavailable [phone] Mckayla Blas GRANITE BLOCK PAVER Unavailable [phone] Encounter Details Date Type Department Care Team (Late st Contact Info) Description 09/12/2023 Orders Only [facility] [address] [place] [address] Social History Tobacco Use Types Packs/Day Years [...] How often do you attend chur or hindu services? 1 to 4 times [...] Recorded Patient Health Questionnaire-2 Score 2 07/10/2023 [facility]at ional [facility] - [...] [facility] [address] [place] [address] Rain Souza MD [address] [place] [address] documented as of this encounter Procedures Procedure Name Priority Date/Time Associated Diagnosis Comments XR CHEST 1 VIEW Routine 09/11/2023 4:52 PM EST documented in this encounter Results * XR chest 1 view (09/11/2023 4:52 PM EST) Anatomical Region Laterality Modality Chest Radiographic Kalani ging [facility] IMG XR PROCEDURES Final Result documented in this encounter Visit Diagnoses Not on filedocumented in this encounter Care Teams Court Recorder Relationship Specialty Start Date End Date Ty Amin MD PCP - General Family Medicine 01/05/23 09/19/23 Ty Amin MD PCP - General Family Medicine 09/20/23 Mckayla Blas NP [address] [place] [address] PCP - [facility] 09/07/23 01/11/25 Mckayla Blas NP Nurse Practitioner Family Medicine 09/20/23 documented as of this encounter
--- OUTSIDE RECORDS SUMMARY | 2025-03-17 14:27 | XMS_ITS | Encounter Summary ---
Author Organization [facility] Address [id number] [address] [place] [address] Care Team Providers Care Advisory Services Associate Name Role Phone JuanjoseMckayla carcamo Krystal CROP INSURANCE CLAIMS ADJUSTER-FAMILY PSYCHOLOGIST Primary Care Provider Encounter Details Date Type Department Care Team (Late st Contact Info) Description 06/11/2020 Orders Only [facility] [address] [place] [address] External, Scanning Provider Social History Tobacco Use [...] on filedocumented in this encounter Care Teams Advisory Services Associate Relationship Specialty Start Date End Date Mckayla Blas, CROP INSURANCE CLAIMS ADJUSTER-FAMILY PSYCHOLOGIST [address] [place] [address] PCP - General Nurse Practitioner 09/25/18 documented as of this encounter
--- OUTSIDE RECORDS SUMMARY | 2025-03-17 14:27 | XMS_ITS | Encounter Summary ---
Author Organization [facility] Address [address] [place] [address] Care Team Providers Care Commercial Door Installer Name Role Phone Ty Amin MD Primary Care Provider [phone] Mckayla Blas FLUTE POLISHER Unavailable [phone] Mckayla Blas NP Unavailable [phone] Encounter Details Date Type Department Care Team (Late st Contact Info) Description 01/07/2025 Abstract [facility] [address] [place] [address] Mckayla Blas NP [address] [facility] [place] [address] Social History Tobacco Use Types Packs/Day Years [...] Recorded Patient Health Questionnaire-2 Score 1 01/17/2024 [facility] Occupat ional Health [...] any time in the past 12 m [facility], were you homeless or living in [...] [facility] [address] [place] [address] Rain Souza MD [address] [place] [address] documented as of this encounter Visit Diagnoses Not on filedocumented in this encounter Additional Health Concerns Assessment Noted Time PHQ-9 Depression Total Score: 3 01/17/20 24 10:08 AM EDT documented as of this encounter Care Teams Commercial Door Installer Relationship Specialty Start Date End Date Ty Amin MD PCP - General Family Medicine 09/20/23 Mckayla Blas NP [address] [place] [address] PCP - [facility] 09/07/23 01/11/25 Mckayla Blas NP Nurse Practitioner Family Medicine 09/20/23 documented as of this encounter
--- OUTSIDE RECORDS SUMMARY | 2025-03-17 14:27 | XMS_ITS | Encounter Summary ---
Author Organization [facility] Address [address] [place] [address] Care Team Providers Care Geophysical Support Specialist Name Role Phone Ty Amin MD Primary Care Provider [phone] Mckayla Blas NP Unavailable [phone] Mckayla Blas NP Unavailable [phone] Encounter Details Date Type Department Care [...] Recorded Patient Health Questionnaire-2 Score 1 01/17/2024 [facility] Occupat ional Health [...] [facility] [address] [place] [address] Rain Souza MD [address] [place] [address] documented as of this encounter Procedures Procedure Name Priority Date/Time Associated Diagnosis Comments MR LUMBAR SPINE WO CON 05/12/2024 2:41 PM EST documented in this encounter Results * MR LUMBAR SPINE WO CON (05/12/2024 2:41 PM EST) Anatomical Region Laterality Modality Other 05/12/2024 2:41 PM EST Narrative 05/12/2024 2:43 PM EST The [address] [address] Magnetic Resonance Report Signed Patient: MITZI MACIAS MR#: [id number] : 1970 Acct:[id number] Age/Sex: 53 / F ADM Date: 05/12/24 Loc: MRI Attending Dr: Angela Chin WEIGHT LOSS PHYSICIAN Ordering Physician: Angela Chin NP Date of Service: 05/12/24 Procedure(s): MR lumbar spine wo con Accession Number(s): [id number] cc: Mckayla Blas NP; Angela Chin NP [place] [address] Patient Name: MITZI MACIAS MRN: [facility]:[id number] date: 1970 Sex: F Assigned Patient Location: MRI Current Patient Location: CT Accession/Order Number: [id number] Exam Date: 05/12/2024 09:21 Report Date: 05/12/2024 [...] Signed By: 05/12/24 1443 DD/ 40 TD/TT: Smart Energy Specialist: Procedure Note Radiology, Radiologist, MD - 05/12/2024 [place] [address] Magnetic Resonance Report Signed Patient: MITZI MACIAS LMR#: [id number] : 1970Acct:[id number] Age/Sex: 53 / FADM Date: 05/12/24 Loc: MRI Attending Dr: Angela Chin WEIGHT LOSS PHYSICIAN Ordering Physician: Angela Chin NP Date of Service: 05/12/24 Procedure(s): MR lumbar spine wo con Accession Number(s): [id number] cc: Mckayla Blas WEIGHT LOSS PHYSICIAN; Angela Chin NP The [place] [id number] Patient Name: MITZI MACIAS MRN: [id number] date: 1970 Sex: F Assigned Patient Location: MRI Current Patient Location: CT Accession/Order Number: [id number] Exam Date: 05/12/2024 09:21 Report Date: 05/12/2024 [...] M.D. Signed By:05/12/24 1443 DD/ 144 TD/TT: Smart Energy Specialist: Generic External Data Provider [facility] Final Result documented in this encounter Visit Diagnoses Not on filedocumented in this encounter Additional Health Concerns Assessment Noted Time PHQ-9 Depression Total Score: 3 01/17/20 24 10:08 AM EDT documented as of this encounter Care Teams Geophysical Support Specialist Relationship Specialty Start Date End Date Ty Amin MD PCP - General Family Medicine 09/20/23 Mckayla Blas NP [address] [place] [address] PCP - [facility] 09/07/23 01/11/25 Mckayla Blas NP Nurse Practitioner Family Medicine 09/20/23 documented as of this encounter
--- OUTSIDE RECORDS SUMMARY | 2025-03-17 14:28 | XMS_ITS | Encounter Summary ---
Author Organization [facility] Address [address] [place] [address] Care Team Providers Care Ross Carrier Driver Name Role Phone Ty Amin MD Primary Care Provider [phone] Mckayla Blas DEFLASH AND WASH OPERATOR Unavailable [phone] Mckayla Blas NP Unavailable [phone] Encounter Details Date Type Department Care Team (Late st Contact Info) Description 04/14/2024 Orders Only [facility] [address] [place] [address] Mckayla Blas NP [address] [facility] [place] [address] Social History Tobacco Use Types Packs/Day Years [...] 01/17/2024 [facility] - Occupational Stress Questionnaire Answer Date [...] Visit [facility] [address] [place] [address] Rain Souza MD [address] [place] [address] documented as of this encounter Procedures Procedure Name Priority Date/Time Associated Diagnosis Comments XR ANKLE 3+ VIEWS RIGHT Routine 04/14/2024 2:57 PM EDT XR ANKLE 3+ VIEWS RIGHT Routine 04/14/2024 11:20 AM EDT documented in this encounter Results * XR ankle 3+ views right (04/14/2024 2:57 PM EDT) Anatomical Region Laterality Modality Lower Extremities, Ankle Right Radiogr aphic Imaging us Mckayla Blas DEFLASH AND WASH OPERATOR IMG XR PROCEDURES Final Result * XR ankle 3+ views right (04/14/2024 11:20 AM EDT) Anatomical Region Laterality Modality Lower Extremities, Ankle Right Radiogr aphic Imaging us Mckayla Blas DEFLASH AND WASH OPERATOR IMG XR PROCEDURES Final Result documented in this encounter Visit Diagnoses Not on filedocumented in this encounter Additional Health Concerns Assessment Noted Time PHQ-9 Depression Total Score: 3 01/17/20 10:08 AM EDT documented as of this encounter Care Teams Ross Carrier Driver Relationship Specialty Start Date End Date Ty Amin MD PCP - General Family Medicine 09/20/23 Mckayla Blas NP [address] [place] [address] PCP - [facility] 09/07/23 01/11/25 Mckayla Blas NP Nurse Practitioner Family Medicine 09/20/23 documented as of this encounter
--- OUTSIDE RECORDS SUMMARY | 2025-03-17 14:28 | XMS_ITS | Encounter Summary ---
Author Organization [facility] Address [address] [place] [address] Care Team Providers Care Oracle Applications Analyst Name Role Phone Ty Amin MD Primary Care Provider [phone] Mckayla Blas NP Unavailable [phone] Mckayla Blas NP Unavailable [phone] Encounter Details Date Type Department Care [...] often do you attend chur ch or sabianist services? 1 to 4 times per year 07/10/2023 Do you belong to any clubs o r organizations such as mormon groups, unions, fraternal [...] [facility] [address] [place] [address] Rain Souza MD [address] [place] [address] documented as of this encounter Procedures Procedure Name Priority Date/Time Associated Diagnosis Comments SEGMENTAL BLOOD PRESSURE 04/24/2024 11:20 AM EDT documented in this encounter Results * SEGMENTAL BLOOD PRESSURE (04/24/2024 11:20 AM EDT) Anatomical Region Laterality Modality Radiographic Kalani ging 04/24/2024 11:2 0 AM EDT Narrative 04/24/2024 11:23 AM EDT The [address] [address] Vein Report Signed Patient: MITZI MACIAS MR#: [id number] : 1970 Acct:[id number] Age/Sex: 53 / F ADM Date: 04/24/24 Loc: VC Attending Dr: Rafael Gongora Ordering Physician: Rafael Gongora Date of Service: 04/24/24 Procedure(s): VC SEGMENTAL PRESSURES Accession Number(s): [id number] cc: Mckayla Blas NP; Rafael Gongora The [place] [address] Patient Name: MITZI MACIAS MRN: [id number] date: 1970 Sex: F Assigned Patient Location: VC Current Patient Location: VC Accession/Order Number: [id number] Exam Date: 04/24/2024 10:25 Report Date: 04/24/2024 11:20 At the request of: RAFAEL GONGORA Procedure: VC SEGMENTAL PRESSURES EXAM: VC SEGMENTAL PRESSURES HISTORY: R09.89 COMPARISON: None. FINDINGS: Segmental pressures presented as follows (right, left) in mmHg. Brachial: 169, 166 Upper thigh: Not obtained Lower thigh: 129, 119 Calf: 124, 106 DPA: 108, 105 GLASS MELT OPERATOR: 100, 91 1st Toe: 124, 142 [...] Signed By: 04/24/24 1123 DD/ 1120 TD/TT: Chlorinator: Procedure Note Radiology, Radiologist, MD - 04/24/2024 [place] [address] Vein Report Signed Patient: MITZI MACIAS LMR#: [id number] : 1970Acct:[id number] Age/Sex: 53 / FADM Date: 04/24/24 Loc: VC Attending Dr: Rafael Gongora Ordering Physician: Rafael Gongora Date of Service: 04/24/24 Procedure(s): VC SEGMENTAL PRESSURES Accession Number(s): [id number] cc: Mckayla Blas NP; Rafael Gongora [place] [id number] Patient Name: MITZI MACIAS MRN: [facility]:[id number] date: 1970 Sex: F Assigned Patient Location: VC Current Patient Location: VC Accession/Order Number: [id number] Exam Date: 04/24/2024 10:25 Report Date: 04/24/2024 11:20 At the request of: RAFAEL GONGORA Procedure: VC SEGMENTAL PRESSURES EXAM: VC SEGMENTAL PRESSURES HISTORY: R09.89 COMPARISON: None. FINDINGS: Segmental pressures presented as follows (right, left) in mmHg. Brachial: 169, 166 Upper thigh: Not obtained Lower thigh: 129, 119 Calf: 124, 106 DPA: 108, 105 GLASS MELT OPERATOR: 100, 91 1st Toe: 124, 142 [...] M.D. Signed By:04/24/24 1123 DD/ 1120 TD/TT: Chlorinator: us Generic External Data Provider IMG XR PROCEDURES Final Result documented in this encounter Visit Diagnoses Not on filedocumented in this encounter Additional Health Concerns Assessment Noted Time PHQ-9 Depression Total Score: 3 01/17/20 24 10:08 AM EDT documented as of this encounter Care Teams Oracle Applications Analyst Relationship Specialty Start Date End Date Ty Amin MD PCP - General Family Medicine 09/20/23 Mckayla Blas NP [address] [place] [address] PCP - [facility] 09/07/23 01/11/25 Mckayla Blas NP Nurse Practitioner Family Medicine 09/20/23 documented as of this encounter
--- OUTSIDE RECORDS SUMMARY | 2025-03-17 14:28 | XMS_ITS | Encounter Summary ---
Author Organization [facility] Address [address] [place] [address] Care Team Providers Care Diesel Engine Assembler Name Role Phone Ty Amin MD Primary Care Provider [phone] Mckayla Blas SENIOR JAVA SOFTWARE ENGINEER Unavailable [phone] Mckayla Blas NP Unavailable [phone] Encounter Details Date Type Department Care Team (Late st Contact Info) Description 01/07/2025 Abstract [facility] [address] [place] [address] Mckayla Blas NP [address] [facility] [place] [address] Social History Tobacco Use Types Packs/Day Years [...] Patient Health Questionnaire-2 Score 1 01/17/2024 [facility] Occupat ional Health - [...] any time in the past 12 m [facility], were you homeless or living in [...] [facility] [address] [place] [address] Rain Souza MD [address] [place] [address] documented as of this encounter Visit Diagnoses Not on filedocumented in this encounter Additional Health Concerns Assessment Noted Time PHQ-9 Depression Total Score: 3 01/17/20 24 10:08 AM EDT documented as of this encounter Care Teams Diesel Engine Assembler Relationship Specialty Start Date End Date Ty Amin MD PCP - General Family Medicine 09/20/23 Mckayla Blas NP [address] [place] [address] PCP - [facility] 09/07/23 01/11/25 Mckayla Blas NP Nurse Practitioner Family Medicine 09/20/23 documented as of this encounter
--- OUTSIDE RECORDS SUMMARY | 2025-03-17 14:28 | XMS_ITS | Clinical Summary ---
Author Organization [employer] Address [id number] [address] [place] [address] Care Team Providers Care Water Resource Consultant Name Role Phone Wan Mckayla Krystal PEREZN-SUPERVISOR BLUEPRINTING AND PHOTOCOPY Primary Care Provider Allergies No known active [...] Medical Devices Not on file Insurance MEDICAID ID [employer] MEDICARE Care Teams Water Resource Consultant Relationship Specialty Start Date End Date Mckayla Blas APRN-SUPERVISOR BLUEPRINTING AND PHOTOCOPY [address] [place] [address] PCP - General Nurse Practitioner 09/25/18
--- OUTSIDE RECORDS SUMMARY | 2025-03-17 14:28 | XMS_ITS | Encounter Summary ---
Author Organization [facility] Address [address] [place] [address] Care Team Providers Care Saloon Keeper Name Role Phone Ty Amin MD Primary Care Provider [phone] Mckayla Blas NP Unavailable [phone] Mckayla Blas NP Unavailable [phone] Encounter Details Date Type Department Care Team (Late st Contact Info) Description 05/12/2024 Orders Only [facility] [address] [place] [address] Angela Cochran NP [address] [place] [address] Social History Tobacco Use Types [...] Recorded Patient Health Questionnaire-2 Score 1 01/17/2024 [facility] Occupat ional Health [...] Visit [facility] [address] [place] [address] Rain Souza MD [address] [place] [address] documented as of this encounter Procedures Procedure [...] documented as of this encounter Care Teams Saloon Keeper Relationship Specialty Start Date End Date Ty Amin MD PCP - General Family Medicine 09/20/23 Mckayla Blas NP [address] [place] [address] PCP - [facility] 09/07/23 01/11/25 Mckayla Blas NP Nurse Practitioner Family Medicine 09/20/23 documented as of this encounter
--- OUTSIDE RECORDS SUMMARY | 2025-03-17 14:28 | XMS_ITS | Encounter Summary ---
Author Organization [facility] Address [address] [place] [address] Care Team Providers Care Sheriffs Detective Name Role Phone Ty Amin MD Primary Care Provider [phone] Mckayla Blas NP Unavailable [phone] Mckayla Blas NP Unavailable [phone] Encounter Details Date Type Department Care [...] [facility] [address] [place] [address] Rain Souza MD [address] [place] [address] documented as of this encounter Procedures Procedure Name Priority Date/Time Associated Diagnosis Comments CT ABDOMEN PELVIS W CON 05/12/2024 2:16 PM EST documented in this encounter Results * CT ABDOMEN PELVIS W CON (05/12/2024 2:16 PM EST) Anatomical Region Laterality Modality Other 05/12/2024 2:16 PM EST Narrative 05/12/2024 2:19 PM EST The [address] [address] [address] Scan Report Signed Patient: MITZI MACIAS MR#: [id number] : 1970 Acct:[id number] Age/Sex: 53 / F ADM Date: 05/12/24 Loc: CT Attending Dr: Sarah MAYERS Ordering Physician: Sarah Vega Date of Service: 05/12/24 Procedure(s): CT abdomen pelvis w con Accession Number(s): [id number] cc: Mckayla Blas NP [place] [address] [place] [address] Patient Name: MITZI MACIAS MRN: [facility]:[id number] date: 1970 Sex: F Assigned Patient Location: CT Current Patient Location: Accession/Order Number: [id number] Exam Date: 05/12/2024 11:15 Report Date: 05/12/2024 [...] Signed By: 05/12/24 1419 DD/ 1416 TD/TT: Rapid Transit Operator: Procedure Note Radiology, Radiologist, MD - 05/12/2024 [place] [address] CT Scan Report Signed Patient: MITZI MACIAS LMR#: [id number] : 1970Acct:[id number] Age/Sex: 53 / FADM Date: 05/12/24 Loc: CT Attending Dr: Sarah MAYERS Ordering Physician: Sarah Vega Date of Service: 05/12/24 Procedure(s): CT abdomen pelvis w con Accession Number(s): [id number] cc: Mckayla Blas NP The [place] [id number] Patient Name: MITZI MACIAS MRN: [facility]:[id number] date: 1970 Sex: F Assigned Patient Location: CT Current Patient Location: Accession/Order Number: [id number] Exam Date: 05/12/2024 11:15 Report Date: 05/12/2024 [...] M.D. Signed By:05/12/24 1419 DD/ 1416 TD/TT: Rapid Transit Operator: Generic External Data Provider [facility] Final Result documented in this encounter Visit Diagnoses Not on filedocumented in this encounter Additional Health Concerns Assessment Noted Time PHQ-9 Depression Total Score: 3 01/17/20 24 10:08 AM EDT documented as of this encounter Care Teams Sheriffs Detective Relationship Specialty Start Date End Date Ty Amin MD PCP - General Family Medicine 09/20/23 Mckayla Blas NP [address] [place] [address] PCP - [facility] 09/07/23 01/11/25 Mckayla Blas NP Nurse Practitioner Family Medicine 09/20/23 documented as of this encounter
--- OUTSIDE RECORDS SUMMARY | 2025-03-17 14:45 | XMS_ITS | CCD ---
Author Organization [facility] Care Team Providers Care Credit Risk Officer Name Role Phone James Benavidez Primary Care Provider JAMES BENAVIDEZ Primary Care Unavailable SHENDGE, VITHAL Admitting Unavailable SHENDGE, VITHAL Attending Unavailable AICHHOLZ, MCKAYLA Primary Care Unavailable AICHHOLZ, MCKAYLA Referring Unavailable AICHHOLZ, MCAKYLA J Primary Care Physician [phone] Tico, Stephanie Unavailable OLE RAMIREZ Attending Unavailable OLE RAMIREZ Consulting Unavailable AICHHOLZ, STICKER ON MCKAYLA Primary Care Unavailable OLE RAMIREZ Admitting Unavailable ANTONY SHRESTHA Consulting Unavailable ALONDRA ., UMBERTO Admitting Unavailable ALONDRA ., UMBERTO Attending Unavailable AICHHOLZ, STICKER ON MCKAYLA Primary Care Unavailable AFSANEH Loera, DR BOLANOS Consulting Unavailable MARYANNE POWER Consulting Unavailable GLENN KERR Consulting Unavailable YOMAIRA KERR Consulting Unavailable HATTIE GOFF Consulting Unavailable ALONDRA ., UMBERTO Consulting Unavailable TICO, STEPHANIE Attending Unavailable TICO, STEPHANIE Consulting Unavailable AICHHOLZ, STICKER ON MCKAYLA Primary Care Unavailable TICO, STEPHANIE Admitting Unavailable REGLA ., DR DUMONT Admitting Unavailable AICHHOLZ, STICKER ON MCKAYLA Primary Care Unavailable REGLA ., DR DUMONT Attending Unavailable ARAUZ ., DR DUMONT Consulting Unavailable COLLIN HUERTAS Consulting Unavailable CECILIA KAUFMAN Admitting Unavailable CECILIA KAUFMAN Attending Unavailable AICHHOLZ, STICKER ON MCKAYLA Primary Care Unavailable RAFAEL GONGORA Attending Unavailable RAFAEL GONGORA Admitting Unavailable AICHHOLZ, STICKER ON MCKAYLA Primary Care Unavailable AICHHOLZ, STICKER ON MCKAYLA Admitting Unavailable AICHHOLZ, STICKER ON MCKAYLA Primary Care Unavailable AICHHOLZ, STICKER ON MCAKYLA Attending Unavailable AICHHOLZ, STICKER ON MCKAYLA Consulting Unavailable LAKSHMIPATHY ., NARENDRANATH Attending Anette vailable LAKSHMIPATHY ., NARENDRANATH Consulting Anette vailable LAKSHMIPATHY ., NARENDRANATH Admitting Anette vailable AICHHOLZ, STICKER ON MCKAYLA Primary Care Unavailable VALENZUELA ., GIL Consulting Unavailable MORTENSEN ., DR CHAPARRO Aguillon Attending Unavailable MORTENSEN ., DR CHAPARRO Aguillon Admitting Unavailable AICHHOLZ, STICKER ON MCKAYLA Primary Care Unavailable VALENZUELA ., GIL Consulting Unavailable MORTENSEN ., DR CHAPARRO Aguillon Admitting Unavailable AICHHOLZ, STICKER ON MCKAYLA Primary Care Unavailable MORTENSEN ., DR CHAPARRO Aguillon Attending Unavailable HALKER ., SUBHASH Consulting Unavailable LAKSHMIPATHY ., NARENDRANATH Admitting Anette vailable LAKSHMIPATHY ., NARENDRANATH Attending Anette vailable AICHHOLZ, STICKER ON MCKAYLA Primary Care Unavailable MORTENSEN ., DR CHAPARRO Aguillon Attending Unavailable MORTENSEN ., DR CHAPARRO Aguillon Admitting Unavailable VALENZUELA ., GIL Consulting Unavailable AICHHOLZ, STICKER ON MCKAYLA Primary Care Unavailable VALENZUELA ., GIL Consulting Unavailable MORTENSEN ., DR CHAPARRO Aguillon Attending Unavailable MORTENSEN ., DR CHAPARRO Aguillon Admitting Unavailable AICHHOLZ, STICKER ON MCKAYLA Primary Care Unavailable HATTIE BRODERICK Attending Unavailable HATTIE BRODERICK Admitting Unavailable AICHHOLZ, STICKER ON MCKAYLA Primary Care Unavailable AICHHOLZ, STICKER ON MCKAYLA Admitting Unavailable AICHHOLZ, STICKER ON MCKAYLA Consulting Unavailable AICHHOLZ, STICKER ON MCKAYLA Primary Care Unavailable AICHHOLZ, STICKER ON MCKAYLA Attending Unavailable AICHHOLZ, STICKER ON MCKAYLA Primary Care Unavailable MISC, DR LESLIE Admitting Unavailable MISC, DR LESLIE Attending Unavailable MISC, DR LESLIE Consulting Unavailable DIAB ., MARIANO Admitting Unavailable DIAB ., MARIANO Attending Unavailable DIAB ., MARIANO Consulting Unavailable AICHHOLZ, STICKER ON MCKAYLA Primary Care Unavailable RASTEGAR, RICCO Consulting Unavailable AICHHOLZ, STICKER ON MCKAYLA Admitting Unavailable AICHHOLZ, STICKER ON MCKAYLA Primary Care Unavailable AICHHOLZ, STICKER ON MCKAYLA Attending Unavailable AICHHOLZ, STICKER ON MCKAYLA Consulting Unavailable DR PATRICIA VELOZ Consulting Unavailable TAMLYN ., CECILIA Attending Unavailable TAMLYN ., CECILIA Admitting Unavailable DR PATRICIA VELOZ Consulting Unavailable AICHHOLZ, STICKER ON MCKAYLA Primary Care Unavailable TAMLYN ., CECILIA Consulting Unavailable MORTENSEN ., DR CHAPARRO Aguillon Attending Unavailable FESTUS ., DR CHAPARRO Aguillon Consulting Unavailable FESTUS ., DR CHAPARRO Aguillon Admitting Unavailable AICHHOLZ, STICKER ON MCKAYLA Primary Care Unavailable HATTIE BRODERICK Attending Unavailable HATTIE BRODERICK Consulting Unavailable HATTIE BRODERICK Admitting Unavailable AICHHOLZ, STICKER ON MCKAYLA Primary Care Unavailable HATTIE BAUTISTA Unavailable AICHHOLZ, STICKER ON MCKAYLA Admitting Unavailable AICHHOLZ, STICKER ON MCKAYLA Attending Unavailable AICHHOLZ, STICKER ON MCKAYLA Consulting Unavailable AICHHOLZ, STICKER ON MCKAYLA Primary Care Unavailable Brennan PHIPPS, Ty Primary Care Provider Brennan PHIPPS, Ty Primary Care Provider Aichholz CLAIM REVIEW MEDICAL DIRECTOR, Mckayla Unavailable Aichholz CLAIM REVIEW MEDICAL DIRECTOR, Mckayla Unavailable Elbert ARAUZ Attending Unavailable [...] Attending Unavailable AMI ORO Attending Unavailable Aichholz CLAIM REVIEW MEDICAL DIRECTOR, Mckayla Unavailable Adonay CHAU, Flynn Arzate Attending Unavailab lolita Urias DPM, Flynn Arzate Referring Unavailab le Bob CHARGING PLUG PLACER-STICKER ON, Omero Lovell Attending Unav roberto Urias DPM, Flynn Arzate Attending Unavailab le Allergies Allergy Classification Reported Allergen(s) Allergy Type Date of Onset Reaction(s) Facility (1 source) No Known Medication Allergies; Translations: [No Known Medication Allergies] Propensity to adverse reactions (disorder) [facility] Repository Medications Current Medications Medication Drug [...] Start Date: 02/06/22 Status: Ordered HYDROcodone-acet aminophen (Proctor) 5-325 MG tablet 1 tablet 3 (three) times a day as needed for severe pain. Active take 1 tablet by vandana twice daily as needed Proctor 5-325 MG 1 tablet as needed Orally [...] every week ergocalciferol (Vitamin D2) 1.25 MG (50183 UT) capsule Indications: Vitamin D deficiency, unspecified Take 1 capsule (1.25 mg) by mouth 1 (one) time per week 12 capsule 1 01/16/2025 04/10/2025 Active Start: 10-27-2024 End: 01-19-2025 take 1 capsule by mouth two times weekly ergocalciferol (Vitamin D2) 1.25 MG (64652 UT) capsule Indications: Vitamin D deficiency, unspecified Take 1 capsule (1.25 mg) by mouth 2 (two) times a week 24 capsule 1 10/27/2024 01/19/2025 Active Start: 04-06-2024 End: 10-27-2024 take 1 capsule by mouth every week ergocalciferol (Vitamin D2) 1.25 MG (90036 UT) capsule Indications: Vitamin D deficiency, unspecified [...] Other fci (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 therapy; Translations: [OTH NURSING HOME CURRENT DRUG THERAPY] Onset: 12-05-2022 Episodic Other aftercare (1 source) 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 helper (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; Translations: [NURSING HOME CURRENT USE OF ASPIRIN] Onset: 12-05-2022 Episodic Other aftercare (6 sources) Long-term current use of insulin; Translations: [snf (current) use of insulin] 05-27-2024 Episodic Other [...] Translations: [NURSING HOME INJECT NONINSULN ANTIDIAB] Onset: 12-05-2022 Unclassified [...] 08-27-2024 08-27-2024 Episodic Other aftercare (3 sources) snf (current) use of insulin; Translations: [NURSING HOME CURRENT USE OF INSULIN] Onset: 12-05-2022 Episodic Other aftercare (20 sources) Long-term current use of inhaled steroid; Translations: [snf (current) use of inhaled steroids] Onset: 08-27-2024 [...] wraps (gauze, tila bandage, Coban II, tuba intraoperative neuro tech), Dakins solution, a 40-day course of antibiotics, [...] other blood thinners. The patient resides in [place]. Review of Systems Constitutional: Negative for signs [...] extremities Positi (more content not included)... Normal [facility] Comment on above: Order Comment: Destiny ocampo Attachment [id number] Can be viewed in source system XR [...] Electronically Signed in Other Vendor System) Normal [facility] Orders Onlyon 01-30-2025 Orders Only [id number] Mitzi Macias 1970 F Date Provider Department Center 01/30/2025 [id number], HISTORICAL [facility] Family History Problem Relation Age of Onset Heart attack Paternal Grandmother Family Status - Relation Status Age at Mother Father Paternal Grandmother Normal [facility] CA ECHO DOPPLER COMPLETEon 0 01-29-2025 [place] [address] Cardiology Report Signed Patient: MITZI MACIAS MR#: [id number] : 1970 Acct:[id number] Age/Sex: 54 / F ADM Date: 01/29/25 Loc: CARD Attending Dr: AMI ORO APRN Ordering Physician: AMI ORO APRN Date of Service: 01/29/25 Procedure(s): CA echo doppler complete Accession Number(s): [id number] cc: Mckayla Blas CLAIM REVIEW MEDICAL DIRECTOR; AMI ORO APRN Patient Name: MITZI MACIAS MR#: [id number] : 1970 Exam Date: 01/29/2025 Ordering Doctor: AMI ORO STICKER ON ECHOCARDIOGRAM REPORT PROCEDURE: CA ECHO DOPPLER COMPLETE [...] HERRERA Signed By: 01/29/251839 DD/ 39 TD/TT: Bread Icer: [facility] Radiology, Radiologist, MD - 01/29/2025 [place] [address] Cardiology Report Signed Patient: MITZI MACIAS MR#: [id number] : 1970 Acct:[id number] Age/Sex: 54 / F ADM Date: 01/29/25 Loc: CARD Attending Dr: AMI ORO APRN Ordering Physician: AMI ORO APRN Date of Service: 01/29/25 Procedure(s): CA echo doppler complete Accession Number(s): [id number] cc: Mckayla Blas CLAIM REVIEW MEDICAL DIRECTOR; AMI ORO APRN Patient Name: MITZI MACIAS MR#: [id number] : 1970 Exam Date: 01/29/2025 Ordering Doctor: [...] HERRERA Signed By: 01/29/251839 DD/ 39 TD/TT: Bread Icer: [facility] Radiology Study observation (narrative) [facility] CA ECHO DOPPLER COMPLETEOrde red By: Radiologist Radiology on 01-29-2025 [facility] Work Phone: Glucose (Bld) [Mass/Vol]on 0 01-29-2025 Glucose Blood, POC 121 mg/dL [facility] Laboratory - Hematology and Cell countson 01-29-2025 HbA1c (Bld) [Mass fraction] 8.4 % [facility] No Panel Informationon 01-29 Interpretation and review of laboratory results Abnormal [facility] Office Visiton 01-06-2025 Follow-up visit [id number] Mitzi Macias 1970 F Date Provider Department Center 01/06/2025 Mikaela-PREETHI, AMI CARD [facility] Family History Problem Relation Age of Onset Heart attack Paternal Grandmother Family Status - Relation Status Age at Mother Father Paternal Grandmother Level of Service:93605 [place] OFFICE/OUTPATIENT ESTABLISHED MOD MDM 30 MIN Reason for Visit and Comments: Congestive Heart Failure [127] Hypertension [906481] Hyperlipidemia [182] Normal [facility] 36on 10-21-2024 36 Regarding lab results from 10/08/2024: MD Mickie Merritt MA Lipids, ALT AST, and BMP are normal. HbA1c was not performed. Continue current management. LM on patient's VM. Normal [facility] Glucose (Bld) [Mass/Vol]Orde red By: Mica Sauceda on 10-08-2024 Glucose Blood, POC 97 mg/dL [facility] Laboratory - Hematology and Cell countson 10-08-2024 HbA1c (Bld) [Mass fraction] 7.4 % [facility] No Panel InformationOrdered By: Mica Sauceda on 10-08-2024 [facility] TBH UA (CLEAN/CATCH) MICROSC OPIC IF [...] (U) [Mass/Vol] 30 mg/dL Abnormal NEG/TRACE NO [facility] SPECIFIC GRAVITY URINE >=1.030 Abnormal 1.005 - 1.025 [facility] URINE MICROSCOPIC INDICATED YES [facility] UROBILINOGEN URINE 1.0 EU/dL 0.2 - 1.0 EU/dL [facility] ALL CBC WITH AUTO DIFFon BASOPHILS ABSOLUTE AUTO 0.1 [facility] Basophils/100 WBC (Bld) 0.5 % 0.2 - 2.0 % [facility] Eosinophils/100 WBC (Bld) 1.9 % 0.9 - 7.0 % [facility] Erythrocyte distribution width (RBC) [Ratio] 14.6 % 11.0 - 15.0 % [facility] Hematocrit (Bld) [Volume fraction] 50.9 % High 36.0 - 48.0 % [facility] Hemoglobin (Bld) [Mass/Vol] 16.1 g/dL High 12.0 - 16.0 g/dL [facility] IMMATURE GRANULOCYTES ABS AUTO 0.04 High [facility] Immature granulocytes/100 WBC (Bld) 0.3 % 0.0 - 0.5 % [facility] Interpretation and review of laboratory results Abnormal [facility] LYMPHOCYTES ABSOLUTE AUTO 3.2 [facility] Lymphocytes/100 WBC (Bld) 25.1 % 20.5 - 60.0 % [facility] MCH (RBC) [Entitic mass] 29.2 pg 26.7 - 34.0 pg [facility] MCHC (RBC) [Mass/Vol] 31.6 g/dL 29.9 - 35.2 g/dL [facility] MCV (RBC) [Entitic vol] 92.2 fL 81.0 - 99.0 fL [facility] MONOCYTES ABSOLUTE AUTO 0.7 [facility] Monocytes/100 WBC (Bld) 5.2 % 1.7 - 12.0 % [facility] NEUTROPHILS ABSOLUTE AUTO 8.6 High [facility] Neutrophils/100 WBC (Bld) 67 % 43.0 - 75.0 % [facility] Platelet mean volume (Bld) [Entitic vol] 12.8 fL 9.5 - 13.5 fL [facility] TBH EO # 0.2 [facility] TB PLT 122 Low [facility] TB RBC 5.52 High [facility] TBH WBC 12.8 High [facility] Office Visiton 08-08-2024 Follow-up visit [id number] Mitzi Macias 1970 F Date Provider Department Center 08/08/2024 [id number] [id number] [facility] Family History Problem Relation Age of Onset Heart attack Paternal Grandmother Family Status - Relation Status Age at Paternal Grandmother Level of Service:05911 [place] OFFICE/OUTPATIENT ESTABLISHED MOD MDM 30 MIN Reason for Visit and Comments: Congestive Heart Failure [127] - Denies chest pain, SOB, and palpitations. Hypertension [931348] Hyperlipidemia [182] LVH [Other] Edema [[id number]] - Denies worsening edema. She sees wound care for RLE ulcer. She was seeing the vein specialists here in town but they are moving to [place] in a few weeks. Normal [facility] Glucose (Bld) [Mass/Vol]Orde red By: Mica Sauceda on 05-27-2024 Glucose Blood, POC 158 mg/dL [facility] - Hematology and Cell countson 05-27-2024 HbA1c (Bld) [Mass fraction] 9.2 % [facility] No Panel InformationOrdered By: Mica Sauceda on 05-27-2024 [facility] CREATININEon 05-12-2024 Creatinine [Mass/Vol] 0.92 mg/dL 0.55 - 1.02 mg/dL [facility] GFR/1.73 sq M.predicted CKD-EPI (S/P/Bld) [Vol rate/Area] >60 >=60 mL/min/1.73m [address] [facility] EGFR-NON AF MOZAMBICAN >60 >=60 mL/min/1.73m 2 [facility] CBC AUTO DIFFon 12-06-2022 BASO # 0.0 103/ul Normal 0.0-0.1 [facility] Comment on above: Performed By: #### C BC #### [facility] [address] [address] [address] Ashlie Hills Basophils/100 WBC (Bld) 0.1 % Critically low 0.2-2.0 [facility] Comment on above: Performed By: #### C BC #### [facility] [address] [place], [place] [address] [address]. Ashlie Hills EO # 0.0 103/ul Normal 0.0-0.7 [facility] Comment on above: Performed By: #### C BC #### [facility] [address] [address] [address] Ashlie Hills Eosinophils/100 WBC (Bld) 0.0 % Critically low 0.9-7.0 [facility] Comment on above: Performed By: #### C BC #### [facility] [address] [place] [address] Dr. Ashlie Hills Erythrocyte distribution width (RBC) [Ratio] 14.9 % Normal 11.0-15.0 [facility] Comment on above: Performed By: #### C BC #### [facility] [address] [place] [address] Dr. Ashlie Hills Hematocrit (Bld) [Volume fraction] 46.2 % Normal 36.0-48.0 [facility] Comment on above: Performed By: #### C BC #### [facility] [address] [place] [address] Dr. Ashlie Hills Hemoglobin (Bld) [Mass/Vol] 14.7 g/dL Normal 12.0-16.0 [facility] Comment on above: Performed By: #### C BC #### [facility] [address] [place] [address] Dr. Ashlie Hills IG # 0.06 10e3/ul Critically high 0.00-0.03 [facility] Comment on above: Performed By: #### C BC #### [facility] [address] [place] [address] Dr. Ashlie Hills IG % 0.4 % Normal 0.0-0.5 [facility] Comment on above: Performed By: #### C BC #### [facility] [address] [place] [address] Dr. Ashlie Hills LYMPH # 1.3 103/ul Normal 1.2-3.8 [facility] Comment on above: Performed By: #### C BC #### [facility] [address] [place] [address] Dr. Ashlie Hills Lymphocytes/100 WBC (Bld) 9.4 % Critically low 20.5-60.0 [facility] Comment on above: Performed By: #### C BC #### [facility] [address] [place] [address] Dr. Ashlie Hills MANUAL DIFF REQ NO Normal [facility] Comment on above: Performed By: #### C BC #### [facility] [address] [place] [address] Dr. Ashlie Hills MCH (RBC) [Entitic mass] 28.4 pg Normal 26.7-34.0 [facility] Comment on above: Performed By: #### C BC #### [facility] [address] [place] [address] Dr. Ashlie Hills MCHC (RBC) [Mass/Vol] 31.8 g/dL Normal 29.9-35.2 [facility] Comment on above: Performed By: #### C BC #### [facility] [address] [place] [address] Dr. Ashlie Hills MCV (RBC) [Entitic vol] 89.4 fL Normal 81.0-99.0 [facility] Comment on above: Performed By: #### C BC #### [facility] [address] [place] [address] Dr. Ashlie Hills MONO # 0.5 103/ul Normal 0.3-0.8 [facility] Comment on above: Performed By: #### C BC #### [facility] [address] [place] [address] Dr. Ashlie Hills Monocytes/100 WBC (Bld) 3.4 % Normal 1.7-12.0 [facility] Comment on above: Performed By: #### C BC #### [facility] [address] [place] [address] Dr. Ashlie Hills NEUT # 11.8 103/ul Critically high 1.4-6.5 [facility] Comment on above: Performed By: #### C BC #### [facility] [address] [place] [address] Dr. Ashlie Hills Neutrophils/100 WBC (Bld) 86.7 % Critically high 43.0-75.0 [facility] Comment on above: Performed By: #### C BC #### [facility] [address] [address] [address] Ashlie Hills Platelet mean volume (Bld) [Entitic vol] 12.6 fL Normal 9.5-13.5 [facility] Comment on above: Performed By: #### C BC #### [facility] [address] [place] [address] Dr. Ashlie Hills PLT 133 103/ul Critically low 150-450 [facility] Comment on above: Performed By: #### C BC #### [facility] [address] [place] [address] Dr. Ashlie Hills RBC 5.17 106/ul Normal 4.20-5.40 [facility] Comment on above: Performed By: #### C BC #### [facility] [address] [place] [address] Dr. Ashlie Hills WBC 13.6 103/ul Critically high 4.0-11.0 [facility] Comment on above: Performed By: #### C BC #### [facility] [address] [place] [address] Dr. Ashlie Hills MAGNESIUMon 12-06-2022 Magnesium [Mass/Vol] 2.2 mg/dL Normal 1.8-2.4 [facility] Comment on above: Performed By: #### I NFLUAB #### [facility] [address] [place] [address] Dr. Ashlie Hills POINT OF CARE GLUCOSEon 11-08 Glucose [Mass/Vol] 340 mg/dL Critically high 74-106 [facility] Comment on above: Performed By: #### P OCGLUC #### [facility] [address] [place] [address] Dr. Ashlie Hills Glucose [Mass/Vol] 276 mg/dL Critically high 74-106 [facility] Comment on above: Performed By: #### C BC #### [facility] [address] [place] [address] Dr. Ashlie Hills Glucose [Mass/Vol] 333 mg/dL Critically high -106 [facility] Comment on above: Performed By: #### C BC #### [facility] [address] [address] [address] Ashlie Hills PROF CHEM 8 (BAS METB)on Anion gap [Moles/Vol] 10.9 mmol/L Normal [facility] Comment on above: Performed By: #### I NFLUAB #### [facility] [address] [place] [address] Dr. Ashlie Hills Calcium [Mass/Vol] 9.3 mg/dL Normal 8.5-10.1 [facility] [place] Comment on above: Performed By: #### I NFLUAB #### [facility] [address] [address] [address] Ashlie Hills Chloride [Moles/Vol] 103 mmol/L Normal 98-107 [facility] Comment on above: Performed By: #### I NFLUAB #### [facility] [address] [place] [address] Dr. Ashlie Hills CO2 [Moles/Vol] 31.2 mmol/L Normal 21.0-32.0 [facility] Comment on above: Performed By: #### I NFLUAB #### [facility] [address] [place] [address] Dr. Ashlie Hills Creatinine [Mass/Vol] 0.96 mg/dL Normal 0.55-1.02 [facility] Comment on above: Performed By: #### I NFLUAB #### [facility] [address] [place] [address] Dr. Ashlie Hills EGFR-AF MOZAMBICAN >60 Normal >=60 [facility] Comment on above: Performed By: #### I NFLUAB #### [facility] [address] [place] [address] Dr. Ashlie Hills EGFR-NON AF MOZAMBICAN >60 Normal >=60 [facility] Comment on above: Performed By: #### I NFLUAB #### [facility] [address] [place] [address] Dr. Ashlie Hills Glucose [Mass/Vol] 288 mg/dL Critically high 74-106 [facility] Comment on above: Performed By: #### I NFLUAB #### [facility] [address] [address] [address] Ashlie Hills Potassium [Moles/Vol] 5.1 mmol/L Normal 3.5-5.1 [facility] Comment on above: Performed By: #### I NFLUAB #### [facility] [address] [place] [address] Dr. Ashlie Hills Sodium [Moles/Vol] 140 mmol/L Normal 136-145 [facility] [place] Comment on above: Performed By: #### I NFLUAB #### [facility] [address] [place] [address] Dr. Ashlie Hills Urea nitrogen [Mass/Vol] 30.0 mg/dL Critically high 7.0-18.0 [facility] Comment on above: Performed By: #### I NFLUAB #### [facility] [address] [place] [address] Dr. Ashlie Hills Urea nitrogen/Creatinine [Mass ratio] 31.2 mg/mg Normal [facility] Comment on above: Performed By: #### I NFLUAB #### [facility] [address] [place] [address] Dr. Ashlie Hills CBC AUTO DIFFon 12-05-2022 BASO # 0.0 103/ul Normal 0.0-0.1 [facility] Comment on above: Performed By: #### C BC #### [facility] [address] [place] [address] Dr. Ashlie Hills Basophils/100 WBC (Bld) 0.4 % Normal 0.2-2.0 [facility] Comment on above: Performed By: #### C BC #### [facility] [address] [place] [address] Dr. Ashlie Hills EO # 0.0 103/ul Normal 0.0-0.7 [facility] Comment on above: Performed By: #### C BC #### [facility] [address] [place] [address] Dr. Ashlie Hills Eosinophils/100 WBC (Bld) 0.0 % Critically low 0.9-7.0 [facility] Comment on above: Performed By: #### C BC #### [facility] [address] [place] [address] Dr. Ashlie Hills Erythrocyte distribution width (RBC) [Ratio] 14.8 % Normal 11.0-15.0 [facility] Comment on above: Performed By: #### C BC #### [facility] [address] [place] [address] Dr. Ashlie Hills Hematocrit (Bld) [Volume fraction] 49.9 % Critically high 36.0-48.0 [facility] Comment on above: Performed By: #### C BC #### [facility] [address] [place] [address] Dr. Ashlie Hills Hemoglobin (Bld) [Mass/Vol] 15.7 g/dL Normal 12.0-16.0 [facility] Comment on above: Performed By: #### C BC #### [facility] [address] [place] [address] Dr. Ashlie Hills IG # 0.04 10e3/ul Critically high 0.00-0.03 [facility] Comment on above: Performed By: #### C BC #### [facility] [address] [place] [address] Dr. Ashlie Hills IG % 0.5 % Normal 0.0-0.5 [facility] Comment on above: Performed By: #### C BC #### [facility] [address] [place] [address] Dr. Ashlie Hills LYMPH # 1.1 103/ul Critically low 1.2-3.8 [facility] Comment on above: Performed By: #### C BC #### [facility] [address] [place] [address] Dr. Ashlie Hills Lymphocytes/100 WBC (Bld) 12.7 % Critically low 20.5-60.0 [facility] Comment on above: Performed By: #### C BC #### [facility] [address] [place] [address] Dr. Ashlie Hills MANUAL DIFF REQ NO Normal [facility] Comment on above: Performed By: #### C BC #### [facility] [address] [address] [address] Ashlie Hills MCH (RBC) [Entitic mass] 28.1 pg Normal 26.7-34.0 [facility] Comment on above: Performed By: #### C BC #### [facility] [address] [address] [address] Ashlie Hills MCHC (RBC) [Mass/Vol] 31.5 g/dL Normal 29.9-35.2 [facility] Comment on above: Performed By: #### C BC #### [facility] [address] [address] [address] Ashlie Hills MCV (RBC) [Entitic vol] 89.3 fL Normal 81.0-99.0 [facility] Comment on above: Performed By: #### C BC #### [facility] [address] [place] [address] Dr. Ashlie Hills MONO # 0.1 103/ul Critically low 0.3-0.8 [facility] Comment on above: Performed By: #### C BC #### [facility] [address] [address] [address] Ashlie Hills Monocytes/100 WBC (Bld) 1.3 % Critically low 1.7-12.0 [facility] Comment on above: Performed By: #### C BC #### [facility] [address] [address] [address] Ashlie Hills NEUT # 7.2 103/ul Critically high 1.4-6.5 [facility] Comment on above: Performed By: #### C BC #### [facility] [address] [address] [address] Ashlie Hills Neutrophils/100 WBC (Bld) 85.1 % Critically high 43.0-75.0 [facility] Comment on above: Performed By: #### C BC #### [facility] [address] [place] [address] Dr. Ashlie Hills Platelet mean volume (Bld) [Entitic vol] 12.2 fL Normal 9.5-13.5 [facility] Comment on above: Performed By: #### C BC #### [facility] [address] [place], [place] [address] Dr. Ashlie Hills PLT 116 103/ul Critically low 150-450 [facility] Comment on above: Performed By: #### C BC #### [facility] [address] [place], [place] [address] Dr. Ashlie Hills RBC 5.59 106/ul Critically high 4.20-5.40 [facility] Comment on above: Performed By: #### C BC #### [facility] [address] [place], [place] [address] Dr. Ashlie Hills WBC 8.5 103/ul Normal 4.0-11.0 [facility] Comment on above: Performed By: #### C BC #### [facility] [address] [place], [place] [address] Dr. Ashlie Hills CTA CHEST WO W [...] HATTIE GOFF Date: 2022-12-05 01:52 Normal [facility] MAGNESIUMon 12-05-2022 Magnesium [Mass/Vol] 2.1 mg/dL Normal 1.8-2.4 [facility] Comment on above: Performed By: #### P OCGLUC #### [facility] [address] [address] [address] Ashlie Hills POINT OF CARE GLUCOSEon 11-08 Glucose [Mass/Vol] 293 mg/dL Critically high [address] [place] [address] Comment on above: Performed By: #### P OCGLUC #### [facility] [address] [address] [address] Ashlie Hills Glucose [Mass/Vol] 269 mg/dL Critically high [address] [place] [address] Comment on above: Performed By: #### P OCGLUC #### [facility] [address] [address] [address] Ashlie Hills Glucose [Mass/Vol] 223 mg/dL Critically high [address] [place] [address] Comment on above: Performed By: #### C VDAGS #### [facility] [address] [address] [address] Ashlie Hills PROF CHEM 8 (BAS METB)on Anion gap [Moles/Vol] 11.6 mmol/L Normal [facility] Comment on above: Performed By: #### P OCGLUC #### [facility] [address] [address] [address] Ashlie Hills Calcium [Mass/Vol] 9.2 mg/dL Normal 8.5-10.1 [facility] [place] Comment on above: Performed By: #### P OCGLUC #### [facility] [address] [address] [address] Ashlie Hills Chloride [Moles/Vol] 102 mmol/L Normal 98-107 [facility] Comment on above: Performed By: #### P OCGLUC #### [facility] [address] [address] [address] Ashlie Hills CO2 [Moles/Vol] 28.7 mmol/L Normal 21.0-32.0 [facility] Comment on above: Performed By: #### P OCGLUC #### [facility] [address] [address] [address] Ashlie Hills Creatinine [Mass/Vol] 1.04 mg/dL Critically high 0.55-1.02 [facility] Comment on above: Performed By: #### P OCGLUC #### [facility] [address] [address] [address] Ashlie Hills EGFR-AF MOZAMBICAN >60 Normal >=60 [facility] Comment on above: Performed By: #### P OCGLUC #### [facility] [address] [address] [address] Ashlie Hills EGFR-NON AF MOZAMBICAN 56 mL/min/1.73m2 Critically low >=60 [facility] Comment on above: Performed By: #### P OCGLUC #### [facility] [address] [address] [address] Ashlie Hills Glucose [Mass/Vol] 231 mg/dL Critically high 74-106 [facility] Comment on above: Performed By: #### P OCGLUC #### [facility] [address] [address] [address] Ashlie Hills Potassium [Moles/Vol] 4.3 mmol/L Normal 3.5-5.1 [facility] Comment on above: Performed By: #### P OCGLUC #### [facility] [address] [address] [address] Ashlie Hills Sodium [Moles/Vol] 138 mmol/L Normal 136-145 [facility] [place] Comment on above: Performed By: #### P OCGLUC #### [facility] [address] [address] [address] Ashlie Hills Urea nitrogen [Mass/Vol] 17.0 mg/dL Normal 7.0-18.0 [facility] Comment on above: Performed By: #### P OCGLUC #### [facility] [address] [place] [address] Dr. Ashlie Hills Urea nitrogen/Creatinine [Mass ratio] 16.3 mg/mg Normal [facility] Comment on above: Performed By: #### P OCGLUC #### [facility] [address] [place] [address] Dr. Ashlie Hills RESPIRATORY PANEL PLUSon Adenovirus Not detected Normal NOT DETECTED [facility] Comment on above: Performed By: #### C VDAGS #### [facility] [address] [place] [address] Dr. Ashlie Shaffer. Parapertusis Not detected Normal NOT DETECTED [facility] Comment on above: Performed By: #### C VDAGS #### [facility] [address] [place] [address] Dr. Ashlie Shaffer. Pertussis Not detected Normal NOT DETECTED [facility] Comment on above: Performed By: #### C VDAGS #### [facility] [address] [place] [address] Dr. Ashlie Hills Chlamydia Pneumoniae Not detected Normal NOT DETECTED [facility] Comment on above: Performed By: #### C VDAGS #### [facility] [address] [place] [address] Dr. Ashlie Hills Coronavirus 229E Not detected Normal NOT DETECTED [facility] Comment on above: Performed By: #### C VDAGS #### [facility] [address] [place] [address] Dr. Ashlie Hills Coronavirus HKU1 Not detected Normal NOT DETECTED [facility] Comment on above: Performed By: #### C VDAGS #### [facility] [address] [place] [address] Dr. Ashlie Hills Coronavirus NL63 Not detected Normal NOT DETECTED [facility] Comment on above: Performed By: #### C VDAGS #### [facility] [address] [place] [address] Dr. Ashlie Hills Coronavirus OC43 Not detected Normal NOT DETECTED [facility] Comment on above: Performed By: #### C VDAGS #### [facility] [address] [address] [address] Ashlie Hills Influenza A H1 Not detected Normal NOT DETECTED [facility] Comment on above: Performed By: #### C VDAGS #### [facility] [address] [address] [address] Ashlie Hills Influenza A H1 2009 Not detected Normal NOT DETECTED [facility] Comment on above: Performed By: #### C VDAGS #### [facility] [address] [address] [address] Ashlie Hills Influenza A H3 Not detected Normal NOT DETECTED [facility] Comment on above: Performed By: #### C VDAGS #### [facility] [address] [place] [address] Dr. Ashlie Hills Influenza B Not detected Normal NOT DETECTED [facility] [place] [facility] Comment on above: Performed By: #### C VDAGS #### [facility] [address] [place] [address] Dr. Ashlie Hills Metapneumovirus Not detected Normal NOT DETECTED [facility] Comment on above: Performed By: #### C VDAGS #### [facility] [address] [place] [address] Dr. Ashlie Hills Mycoplas. Pneumoniae Not detected Normal NOT DETECTED [facility] Comment on above: Performed By: #### C VDAGS #### [facility] [address] [address] [address] Ashlie Hills Parainfluenza 1 Not detected Normal NOT DETECTED [facility] Comment on above: Performed By: #### C VDAGS #### [facility] [address] [address] [address] Ashlie Hills Parainfluenza 2 Not detected Normal NOT DETECTED [facility] Comment on above: Performed By: #### C VDAGS #### [facility] [address] [address] [address] Ashlie Hills Parainfluenza 3 Detected Abnormal NOT DETECTED [facility] Comment on above: Performed By: #### C VDAGS #### [facility] [address] [place] [address] Dr. Ashlie Hills Parainfluenza 4 Not detected Normal NOT DETECTED [facility] Comment on above: Performed By: #### C VDAGS #### [facility] [address] [place] [address] Dr. Ashlie Hills Rhino/Enterovirus Not detected Normal NOT DETECTED [facility] Comment on above: Performed By: #### C VDAGS #### [facility] [address] [place] [address] Dr. Ashlie Hills RP2 Header 1 RESPIRATORY PANEL: VIRUSES Normal [facility] Comment on above: Performed By: #### C VDAGS #### [facility] [address] [place] [address] Dr. Ashlie Hills RP2 Header 2 RESPIRATORY PANEL: BACTERIA Normal [facility] Comment on above: Performed By: #### C VDAGS #### [facility] [address] [place] [address] Dr. Ashlie Hills RSV Not detected Normal NOT DETECTED [facility] Comment on above: Performed By: #### C VDAGS #### [facility] [address] [place] [address] Dr. Ashlie Hills SARS-CoV-2 (COVID-19) RNA MADDY+probe Ql (Unsp spec) Not detected Normal NOT DETECTED [facility] Comment on above: Performed By: #### C VDAGS #### [facility] [address] [place] [address] Dr. Ashlie Hills XR CHEST 1 Von [...] MARYANNE POWER Date: 2022-12-04 22:23 Normal [facility] BLOOD GASES BTYon 12-04-2022 02 MODE ROOM AIR Normal [facility] Comment on above: Performed By: #### C BC #### [facility] [address] [place] [address] Dr. Ashlie Hills ALLENS TEST Positive Normal [facility] Comment on above: Performed By: #### C BC #### [facility] [address] [place] [address] Dr. Ashlie Hills Base excess Calc (Bld) [Moles/Vol] 5.4 mmol/L Critically high -2.0-2.0 [facility] Comment on above: Performed By: #### C BC #### [facility] [address] [address] [address] Ashlie Hills BIPAP PRESSURE [facility] Comment on above: Performed By: #### C BC #### [facility] [address] [place] [address] Dr. Ashlie Hills CPAP [facility] Comment on above: Performed By: #### C BC #### [facility] [address] [place] [address] Dr. Ashlie Hills FIO2 [facility] Comment on above: Performed By: #### C BC #### [facility] [address] [address] [address] Ashlie Hills HCO3 (Bld) [Moles/Vol] 30.8 mmol/L Critically high 22.0-26 .0 [facility] Comment on above: Performed By: #### C BC #### [facility] [address] [place] [address] Dr. Ashlie Hills LPM [facility] Comment on above: Performed By: #### C BC #### [facility] [address] [address] [address] Ashlie Hills MINUTE VOLUME Normal [facility] Comment on above: Performed By: #### C BC #### [facility] [address] [place] [address] Dr. Ashlie Hills Oxygen (Bld) [Partial pressure] 46.3 mm[Hg] Critically low 80.0-100.0 [facility] Comment on above: Performed By: #### C BC #### [facility] [address] [address] [address] Ashlie Hills Oxygen saturation in Blood 83.9 % Critically low 95.0-100.0 [facility] Comment on above: Performed By: #### C BC #### [facility] [address] [address] [address] Ashlie Hills PCO2 54.2 mmHg Critically high 35.0-45.0 [facility] Comment on above: Performed By: #### C BC #### [facility] [address] [address] [address] Ashlie Hills [facility] Comment on above: Performed By: #### C BC #### [facility] [address] [place] [address] Dr. Ashlie Hills pH (Bld) 7.363 [pH] Normal 7.350-7.450 [facility] Comment on above: Performed By: #### C BC #### [facility] [address] [place] [address] Dr. Ashlie Hills [facility] Comment on above: Performed By: #### C BC #### [facility] [address] [address] [address] Ashlie Hills PS [facility] Comment on above: Performed By: #### C BC #### [facility] [address] [place] [address] Dr. Ashlie Hills PUNCTURE SITE [facility] Comment on above: Performed By: #### C BC #### [facility] [address] [place] [address] Dr. Ashlie Hills RATE [facility] Comment on above: Performed By: #### C BC #### [facility] [address] [place] [address] Dr. Ashlie Hills VENT MODE [facility] Comment on above: Performed By: #### C BC #### [facility] [address] [place] [address] Dr. Ashlie Hills [facility] Comment on above: Performed By: #### C BC #### [facility] [address] [place] [address] Dr. Ashlie Hills BNPon 12-04-2022 Natriuretic peptide B (Bld) [Mass/Vol] 76.0 pg/mL Normal <=900.0 [facility] Comment on above: Performed By: #### P OCGLUC #### [facility] [address] [place] [address] Dr. Ashlie Hills CBC AUTO DIFFon 12-04-2022 BASO # 0.1 103/ul Normal 0.0-0.1 [facility] Comment on above: Performed By: #### C BC #### [facility] [address] [place] [address] Dr. Ashlie Hills Basophils/100 WBC (Bld) 0.6 % Normal 0.2-2.0 [facility] Comment on above: Performed By: #### C BC #### [facility] [address] [place] [address] Dr. Ashlie Hills EO # 0.2 103/ul Normal 0.0-0.7 [facility] Comment on above: Performed By: #### C BC #### [facility] [address] [place] [address] Dr. Ashlie Hills Eosinophils/100 WBC (Bld) 1.9 % Normal 0.9-7.0 [facility] Comment on above: Performed By: #### C BC #### [facility] [address] [place] [address] Dr. Ashlie Hills Erythrocyte distribution width (RBC) [Ratio] 15.0 % Normal 11.0-15.0 [facility] Comment on above: Performed By: #### C BC #### [facility] [address] [place] [address] Dr. Ashlie Hills Hematocrit (Bld) [Volume fraction] 49.1 % Critically high 36.0-48.0 [facility] Comment on above: Performed By: #### C BC #### [facility] [address] [place] [address] Dr. Ashlie Hills Hemoglobin (Bld) [Mass/Vol] 15.6 g/dL Normal 12.0-16.0 [facility] Comment on above: Performed By: #### C BC #### [facility] [address] [place] [address] Dr. Ashlie Hills IG # 0.02 10e3/ul Normal 0.00-0.03 [facility] Comment on above: Performed By: #### C BC #### [facility] [address] [place] [address] Dr. Ashlie Hills IG % 0.2 % Normal 0.0-0.5 [facility] Comment on above: Performed By: #### C BC #### [facility] [address] [place] [address] Dr. Ashlie Hills LYMPH # 2.8 103/ul Normal 1.2-3.8 [facility] Comment on above: Performed By: #### C BC #### [facility] [address] [place] [address] Dr. Ashlie Hills Lymphocytes/100 WBC (Bld) 29.9 % Normal 20.5-60.0 [facility] Comment on above: Performed By: #### C BC #### [facility] [address] [place] [address] Dr. Aslhie Hills MANUAL DIFF REQ NO Normal [facility] Comment on above: Performed By: #### C BC #### [facility] [address] [place] [address] Dr. Ashlie Hills MCH (RBC) [Entitic mass] 28.5 pg Normal 26.7-34.0 [facility] Comment on above: Performed By: #### C BC #### [facility] [address] [place] [address] Dr. Ashlie Hills MCHC (RBC) [Mass/Vol] 31.8 g/dL Normal 29.9-35.2 [facility] Comment on above: Performed By: #### C BC #### [facility] [address] [place] [address] Dr. Ashlie Hills MCV (RBC) [Entitic vol] 89.8 fL Normal 81.0-99.0 [facility] Comment on above: Performed By: #### C BC #### [facility] [address] [place] [address] Dr. Ashlie Hills MONO # 1.0 103/ul Critically high 0.3-0.8 [facility] Comment on above: Performed By: #### C BC #### [facility] [address] [place] [address] Dr. Ashlie Hills Monocytes/100 WBC (Bld) 10.6 % Normal 1.7-12.0 [facility] Comment on above: Performed By: #### C BC #### [facility] [address] [place] [address] Dr. Ashlie Hills NEUT # 5.3 103/ul Normal 1.4-6.5 [facility] Comment on above: Performed By: #### C BC #### [facility] [address] [place] [address] Dr. Ashlie Hills Neutrophils/100 WBC (Bld) 56.8 % Normal 43.0-75.0 [facility] Comment on above: Performed By: #### C BC #### [facility] [address] [place] [address] Dr. Ashlie Hills Platelet mean volume (Bld) [Entitic vol] 12.5 fL Normal 9.5-13.5 [facility] Comment on above: Performed By: #### C BC #### [facility] [address] [place] [address] Dr. Ashlie Hills PLT 109 103/ul Critically low 150-450 [facility] Comment on above: Performed By: #### C BC #### [facility] [address] [place], [place] [id number] Dr. Ashlie Hills RBC 5.47 106/ul Critically high 4.20-5.40 [facility] Comment on above: Performed By: #### C BC #### [facility] [address] [place] [address] Dr. Ashlie Hills WBC 9.4 103/ul Normal 4.0-11.0 [facility] Comment on above: Performed By: #### C BC #### [facility] [address] [place] [address] Dr. Ashlie Hills PROF 14(COMP METB)on 023 Albumin [Mass/Vol] 2.9 g/dL Critically low 3.4-5.0 Th e [facility] Comment on above: Performed By: #### C BC #### [facility] [address] [place] [address] Dr. Ashlie Hills Albumin/Globulin [Mass ratio] 0.6 {ratio} Normal [facility] Comment on above: Performed By: #### C BC #### [facility] [address] [place] [address] Dr. Ashlie Hills ALP [Catalytic activity/Vol] 64 U/L Normal 46-116 [facility] Comment on above: Performed By: #### C BC #### [facility] [address] [place] [address] Dr. Ashlie Hills ALT [Catalytic activity/Vol] 16 U/L Normal 14-59 [facility] Comment on above: Performed By: #### C BC #### [facility] [address] [place] [address] Dr. Ashlie Hills Anion gap [Moles/Vol] 9.6 mmol/L Normal [facility] Comment on above: Performed By: #### C BC #### [facility] [address] [place] [address] Dr. Ashlie Hills AST [Catalytic activity/Vol] 16 U/L Normal 15-37 [facility] Comment on above: Performed By: #### C BC #### [facility] [address] [place] [address] Dr. Ashlie Hills Bilirubin [Mass/Vol] 0.5 mg/dL Normal 0.2-1.0 [facility] Comment on above: Performed By: #### C BC #### [facility] [address] [place] [address] Dr. Ashlie Hills Calcium [Mass/Vol] 8.7 mg/dL Normal 8.5-10.1 [facility] [place] Comment on above: Performed By: #### C BC #### [facility] [address] [place] [address] Dr. Ashlie Hills Chloride [Moles/Vol] 103 mmol/L Normal 98-107 [facility] Comment on above: Performed By: #### C BC #### [facility] [address] [address] [address] Ashlie Hills CO2 [Moles/Vol] 30.7 mmol/L Normal 21.0-32.0 [facility] Comment on above: Performed By: #### C BC #### [facility] [address] [place] [address] Dr. Ashlie Hills Creatinine [Mass/Vol] 0.96 mg/dL Normal 0.55-1.02 [facility] Comment on above: Performed By: #### C BC #### [facility] [address] [place] [address] Dr. Ashlie Hills EGFR-AF MOZAMBICAN >60 Normal >=60 [facility] Comment on above: Performed By: #### C BC #### [facility] [address] [place] [address] Dr. Ashlie Hills EGFR-NON AF MOZAMBICAN >60 Normal >=60 [facility] Comment on above: Performed By: #### C BC #### [facility] [address] [place] [address] Dr. Ashlie Hills Globulin (S) [Mass/Vol] 4.7 g/dL Normal [facility] Comment on above: Performed By: #### C BC #### [facility] [address] [place] [address] Dr. Ashlie Hills Glucose [Mass/Vol] 170 mg/dL Critically high 74-106 [facility] Comment on above: Performed By: #### C BC #### [facility] [address] [place] [address] Dr. Ashlie Hills Potassium [Moles/Vol] 4.3 mmol/L Normal 3.5-5.1 [facility] Comment on above: Performed By: #### C BC #### [facility] [address] [place] [address] Dr. Ashlie Hills Protein [Mass/Vol] 7.6 g/dL Normal 6.4-8.2 [facility] Comment on above: Performed By: #### C BC #### [facility] [address] [place] [address] Dr. Ashlie Hills Sodium [Moles/Vol] 139 mmol/L Normal 136-145 [facility] Comment on above: Performed By: #### C BC #### [facility] [address] [address] [address] Ashlie Hills Urea nitrogen [Mass/Vol] 16.0 mg/dL Normal 7.0-18.0 [facility] Comment on above: Performed By: #### C BC #### [facility] [address] [place] [address] Dr. Ashlie Hills Urea nitrogen/Creatinine [Mass ratio] 16.7 mg/mg Normal [facility] Comment on above: Performed By: #### C BC #### [facility] [address] [place] [address] Dr. Ashlie Hills SYMPTOMATIC COVID-19 ANTIGEN on 12-04-2022 EUA Statement SEE BELOW Normal [facility] Comment on above: Result Comment: This [...] VDAGS #### [facility] [address] [place] [address] Dr. Ashlie Hills SARS-CoV-2 (COVID-19) RNA MADDY+probe Ql (Unsp spec) Negative Normal NEGATIVE [facility] Comment on above: Performed By: #### C VDAGS #### [facility] [address] [place] [address] Dr. Ashlie Hills TROPONIN, HIGH SENSITIVITYon 12-04-2022 HSTROP 8.9 pg/mL Normal 4.0-51.3 [facility] Comment on above: Result Comment: CUT- OFF POINTS HAVE BEEN ESTABLISHED BASED ON THE FOURTH UNIVERSAL DEFINITIONS OF MYOCARDIAL INFARCTION. THE UPPER REFERENCE LIMIT (URL) OF TROPONIN, DEFINED THE 99TH PERCENTILE OF cTnI DISTRIBUTION IN A REFERENCE POPULATION, HAS BEEN CONFIRMED THE DECISION THRESHOLD FOR LA DIAGNOSIS. Performed By: #### P OCGLUC #### [facility] [address] [place] [address] Dr. Ashlie Hills MICROALBUMIN, RAND URon 11-06 mALB 35.8 mg/dL Critically high <=30.0 [facility] Comment on above: Performed By: #### C VDAGS #### [facility] [address] [place] [address] Dr. Ashlie Hills UA RANDOM W/MICROSCOPICon BACTERIA NONE SEEN Normal NONE SEEN [facility] Comment on above: Performed By: #### C VDAGS #### [facility] [address] [place] [address] Dr. Ashlie Hills Bilirubin Ql (U) Negative Normal NEGATIVE [facility] Comment on above: Performed By: #### C VDAGS #### [facility] [address] [place] [address] Dr. Ashlie Hills CAST SEEN Abnormal NONE SEEN [facility] Comment on above: Performed By: #### C VDAGS #### [facility] [address] [place] [address] Dr. Ashlie Hills Clarity (U) CLEAR Normal CLEAR [facility] Comment on above: Performed By: #### C VDAGS #### [facility] [address] [place] [address] Dr. Ashlie Hills Color (U) YELLOW Normal YELLOW [facility] Comment on above: Performed By: #### C VDAGS #### [facility] [address] [place] [address] Dr. Ashlie Hills Crystals LM Nom (Urine sed) NONE SEEN Normal NONE SEEN [facility] Comment on above: Performed By: #### C VDAGS #### [facility] [address] [place] [address] Dr. Ashlie Hills Epithelial cells LM Ql (Urine sed) MODERATE Abnormal NONE SEEN /RARE [facility] Comment on above: Performed By: #### C VDAGS #### [facility] [address] [place] [address] Dr. Ashlie Hills Glucose Ql (U) Negative Normal NEGATIVE [facility] Comment on above: Performed By: #### C VDAGS #### [facility] [address] [place] [address] Dr. Ashlie Hills Hemoglobin Ql (U) TRACE-INTACT Abnormal NEGATIVE [facility] Comment on above: Performed By: #### C VDAGS #### [facility] [address] [place] [address] Dr. Ashlie Hills Ketones Ql (U) Negative Normal NEGATIVE [facility] Comment on above: Performed By: #### C VDAGS #### [facility] [address] [place] [address] Dr. Ashlie Hills LEUKOCYTES Negative Normal NEGATIVE [facility] Comment on above: Performed By: #### C VDAGS #### [facility] [address] [place] [address] Dr. Ashlie Hills MUCOUS NONE SEEN Normal NONE SEEN [facility] Comment on above: Performed By: #### C VDAGS #### [facility] [address] [place] [address] Dr. Ashlie Hills Nitrite Ql (U) Negative Normal NEGATIVE [facility] Comment on above: Performed By: #### C VDAGS #### [facility] [address] [place] [address] Dr. Ashlie Hills pH (U) 5.0 [pH] Normal 5-9 [facility] Comment on above: Performed By: #### C VDAGS #### [facility] [address] [place] [address] Dr. Ashlie Hills RBC 0-2 Normal 0-2 [facility] Comment on above: Performed By: #### C VDAGS #### [facility] [address] [place] [address] Dr. Ashlie Hills SPEC GRAVITY 1.030 Abnormal 1.005-<=1.025 [facility] Comment on above: Performed By: #### C VDAGS #### [facility] [address] [place] [address] Dr. Ashlie Hills UA PROTEIN 100 mg/dl Abnormal NEGATIVE/ TRACE [facility] Comment on above: Performed By: #### C VDAGS #### [facility] [address] [place] [address] Dr. Ashlie Hills Urobilinogen Qn (U) 0.2 {Little'U}/dL Normal 0.2 - 1. 0 [facility] Comment on above: Performed By: #### C VDAGS #### [facility] [address] [place] [address] Dr. Ashlie Hills WBC NONE SEEN Normal NONE SEEN [facility] Comment on above: Performed By: #### C VDAGS #### [facility] [address] [place] [address] Dr. Ashlie Hills CBC AUTO DIFFon 11-22-2022 BASO # 0.0 103/ul Normal 0.0-0.1 [facility] Comment on above: Performed By: #### C BC #### [facility] [address] [place] [address] Dr. Ashlie Hills Basophils/100 WBC (Bld) 0.3 % Normal 0.2-2.0 [facility] Comment on above: Performed By: #### C BC #### [facility] [address] [place] [address] Dr. Ashlie Hills EO # 0.4 103/ul Normal 0.0-0.7 [facility] Comment on above: Performed By: #### C BC #### [facility] [address] [place] [address] Dr. Ashlie Hills Eosinophils/100 WBC (Bld) 3.0 % Normal 0.9-7.0 [facility] Comment on above: Performed By: #### C BC #### [facility] [address] [place] [address] Dr. Ashlie Hills Erythrocyte distribution width (RBC) [Ratio] 15.3 % Critically high 11.0-15.0 [facility] Comment on above: Performed By: #### C BC #### [facility] [address] [place] [address] Dr. Ashlie Hills Hematocrit (Bld) [Volume fraction] 52.4 % Critically high 36.0-48.0 [facility] Comment on above: Performed By: #### C BC #### [facility] [address] [place] [address] Dr. Ashlie Hills Hemoglobin (Bld) [Mass/Vol] 16.8 g/dL Critically high 12.0-16.0 [facility] Comment on above: Performed By: #### C BC #### [facility] [address] [place] [address] Dr. Ashlie Hills IG # 0.04 10e3/ul Critically high 0.00-0.03 [facility] Comment on above: Performed By: #### C BC #### [facility] [address] [place] [address] Dr. Ashlie Hills IG % 0.3 % Normal 0.0-0.5 [facility] Comment on above: Performed By: #### C BC #### [facility] [address] [place] [address] Dr. Ashlie Hills LYMPH # 4.5 103/ul Critically high 1.2-3.8 [facility] Comment on above: Performed By: #### C BC #### [facility] [address] [place] [address] Dr. Ashlie Hills Lymphocytes/100 WBC (Bld) 33.2 % Normal 20.5-60.0 [facility] Comment on above: Performed By: #### C BC #### [facility] [address] [place] [address] Dr. Ashlie Hills MANUAL DIFF REQ NO Normal [facility] Comment on above: Performed By: #### C BC #### [facility] [address] [place] [address] Dr. Ashlie Hills MCH (RBC) [Entitic mass] 28.0 pg Normal 26.7-34.0 [facility] Comment on above: Performed By: #### C BC #### [facility] [address] [place] [address] Dr. Ashlie Hills MCHC (RBC) [Mass/Vol] 32.1 g/dL Normal 29.9-35.2 [facility] Comment on above: Performed By: #### C BC #### [facility] [address] [place] [address] Dr. Ashlie Hills MCV (RBC) [Entitic vol] 87.3 fL Normal 81.0-99.0 [facility] Comment on above: Performed By: #### C BC #### [facility] [address] [place] [address] Dr. Ashlie Hills MONO # 0.8 103/ul Normal 0.3-0.8 [facility] Comment on above: Performed By: #### C BC #### [facility] [address] [place] [address] Dr. Ashlie Hills Monocytes/100 WBC (Bld) 5.7 % Normal 1.7-12.0 [facility] Comment on above: Performed By: #### C BC #### [facility] [address] [place] [address] Dr. Ashlie Hills NEUT # 7.8 103/ul Critically high 1.4-6.5 [facility] Comment on above: Performed By: #### C BC #### [facility] [address] [place] [address] Dr. Ashlie Hills Neutrophils/100 WBC (Bld) 57.5 % Normal 43.0-75.0 [facility] Comment on above: Performed By: #### C BC #### [facility] [address] [place] [address] Dr. Ashlie Hills Platelet mean volume (Bld) [Entitic vol] 12.0 fL Normal 9.5-13.5 [facility] Comment on above: Performed By: #### C BC #### [facility] [address] [place] [address] Dr. Ashlie Hills PLT 152 103/ul Normal 150-450 [facility] Comment on above: Performed By: #### C BC #### [facility] [address] [place] [address] Dr. Ashlie Hills RBC 6.00 106/ul Critically high 4.20-5.40 [facility] Comment on above: Performed By: #### C BC #### [facility] [address] [place] [address] Dr. Ashlie Hills WBC 13.6 103/ul Critically high 4.0-11.0 [facility] Comment on above: Performed By: #### C BC #### [facility] [address] [place] [address] Dr. Ashlie Hills LIPID PROFILEon 11-22-2022 CHOL-HDL RATIO NORM SEE BELOW Normal [facility] Comment on above: Result Comment: 3.3 - 4.4 LOW RISK 4.4 - 7.1 AVERAGE RISK 7.1 - 11.0 MODERATE RISK >11.0 HIGH RISK Performed By: #### C BC #### [facility] [address] [place] [address] Dr. Ashlie Hills Cholesterol [Mass/Vol] 139 mg/dL Normal <=200 [facility] Comment on above: Performed By: #### C BC #### [facility] [address] [place] [address] Dr. Ashlie Hills Cholesterol in HDL [Mass/Vol] 35 mg/dL Critically low 40-60 [facility] Comment on above: Performed By: #### C BC #### [facility] [address] [place] [address] Dr. Ashlie Hills Cholesterol in LDL [Mass/Vol] 67.4 mg/dL Normal [facility] Comment on above: Performed By: #### C BC #### [facility] [address] [place] [address] Dr. Ashlie Hills Cholesterol.total/Chol esterol in HDL [Mass ratio] 4.0 {ratio} Normal [facility] Comment on above: Performed By: #### C BC #### [facility] [address] [address] [address] Ashlie Hills HDL NORMAL > or = 60 mg/dl - LOW CARDIOVASCULAR RISK <40 mg/dl - HIGH CARDIOVASCULAR RISK Normal [facility] Comment on above: Performed By: #### C BC #### [facility] [address] [address] [address] Ashlie Hills LDL CALC NORMAL SEE BELOW Normal [facility] Comment on above: Result Comment: <100 mg/dl OPTIMAL 100 - 129 mg/dl NEAR OR ABOVE OPTIMAL 130 - 159 mg/dl BORDERLINE HIGH 160 - 189 mg/dl HIGH >190 mg/dl VERY HIGH Performed By: #### C BC #### [facility] [address] [address] [address] Ashlie Hills Triglyceride [Mass/Vol] 183 mg/dL Critically high <=150 [facility] Comment on above: Performed By: #### C BC #### [facility] [address] [address] [address] Ashlie Hills VLDL CALC 36.6 mg/dL Normal [facility] Comment on above: Performed By: #### C BC #### [facility] [address] [address] [address] Ashlie Hills MG MAMM SCREEN 3D ALEX CADon 11-22-2022 MG MAMM SCREEN 3D ALEX CAD Patient: MITZI MACIAS Exam Date: 11/22/2022 : 1970 Gender:F Ordering : SAYDA BLAS STICKER ON Admission #: [id number] Family : Order #: [id number] CLICK HERE TO VIEW EXAM RADIOLOGY REPORT [...] LOCATION: [facility] BREAST COMPOSITION: Almost entirely fatty. FINDINGS: DIAGNOSTIC [...] Veloz M.D. on 11/22/2022 at 12:09 Normal [facility] PROF 14(COMP METB)on 023 Albumin [Mass/Vol] 3.0 g/dL Critically low 3.4-5.0 [facility] Comment on above: Performed By: #### C BC #### [facility] [address] [place] [address] Dr. Ashlie Hills Albumin/Globulin [Mass ratio] 0.6 {ratio} Normal [facility] Comment on above: Performed By: #### C BC #### [facility] [address] [place] [address] Dr. Ashlie Hills ALP [Catalytic activity/Vol] 68 U/L Normal 46-116 [facility] Comment on above: Performed By: #### C BC #### [facility] [address] [address] [address] Ashlie Hills ALT [Catalytic activity/Vol] 14 U/L Normal 14-59 [facility] Comment on above: Performed By: #### C BC #### [facility] [address] [address] [address] Ashlie Hills Anion gap [Moles/Vol] 12.1 mmol/L Normal [facility] Comment on above: Performed By: #### C BC #### [facility] [address] [address] [address] Ashlie Hills AST [Catalytic activity/Vol] 9 U/L Critically low 15-37 [facility] Comment on above: Performed By: #### C BC #### [facility] [address] [address] [address] Ashlie Hills Bilirubin [Mass/Vol] 0.4 mg/dL Normal 0.2-1.0 [facility] Comment on above: Performed By: #### C BC #### [facility] [address] [address] [address] Ashlie Hills Calcium [Mass/Vol] 9.0 mg/dL Normal 8.5-10.1 [facility] [place] Comment on above: Performed By: #### C BC #### [facility] [address] [place] [address] Dr. Ashlie Hills Chloride [Moles/Vol] 105 mmol/L Normal 98-107 [facility] Comment on above: Performed By: #### C BC #### [facility] [address] [address] [address] Ashlie Hills CO2 [Moles/Vol] 30.7 mmol/L Normal 21.0-32.0 [facility] Comment on above: Performed By: #### C BC #### [facility] [address] [place] [address] Dr. Ashlie Hills Creatinine [Mass/Vol] 0.77 mg/dL Normal 0.55-1.02 [facility] Comment on above: Performed By: #### C BC #### [facility] [address] [place] [address] Dr. Ashlie Hills EGFR-AF MOZAMBICAN >60 Normal >=60 [facility] Comment on above: Performed By: #### C BC #### [facility] [address] [place] [address] Dr. Ashlie Hills EGFR-NON AF MOZAMBICAN >60 Normal >=60 [facility] Comment on above: Performed By: #### C BC #### [facility] [address] [place] [address] Dr. Ashlie Hills Globulin (S) [Mass/Vol] 4.8 g/dL Normal [facility] Comment on above: Performed By: #### C BC #### [facility] [address] [place] [address] Dr. Ashlie Hills Glucose [Mass/Vol] 162 mg/dL Critically high 74-106 T [facility] Comment on above: Performed By: #### C BC #### [facility] [address] [place] [address] Dr. Ashlie Hills Potassium [Moles/Vol] 3.8 mmol/L Normal 3.5-5.1 [facility] Comment on above: Performed By: #### C BC #### [facility] [address] [place] [address] Dr. Ashlie Hills Protein [Mass/Vol] 7.8 g/dL Normal 6.4-8.2 [facility] [place] Comment on above: Performed By: #### C BC #### [facility] [address] [place] [address] Dr. Ashlie Hills Sodium [Moles/Vol] 144 mmol/L Normal 136-145 [facility] [place] Comment on above: Performed By: #### C BC #### [facility] [address] [place] [address] Dr. Ashlie Hills Urea nitrogen [Mass/Vol] 24.0 mg/dL Critically high 7.0-18.0 [facility] Comment on above: Performed By: #### C BC #### [facility] [address] [place] [address] Dr. Ashlie Hills Urea nitrogen/Creatinine [Mass ratio] 31.2 mg/mg Normal [facility] Comment on above: Performed By: #### C BC #### [facility] [address] [place] [address] Dr. Ashlie Hills CBC AUTO DIFFon 10-05-2022 BASO # 0.1 103/ul Normal 0.0-0.1 [facility] Comment on above: Performed By: #### C BC #### [facility] [address] [place] [address] Dr. Ashlie Hills Basophils/100 WBC (Bld) 0.6 % Normal 0.2-2.0 [facility] Comment on above: Performed By: #### C BC #### [facility] [address] [place] [address] Dr. Ashlie Hills EO # 0.3 103/ul Normal 0.0-0.7 [facility] Comment on above: Performed By: #### C BC #### [facility] [address] [place] [address] Dr. Ashlie Hills Eosinophils/100 WBC (Bld) 2.1 % Normal 0.9-7.0 [facility] Comment on above: Performed By: #### C BC #### [facility] [address] [place] [address] Dr. Ashlie Hills Erythrocyte distribution width (RBC) [Ratio] 15.9 % Critically high 11.0-15.0 [facility] Comment on above: Performed By: #### C BC #### [facility] [address] [place] [address] Dr. Ashlie Hills Hematocrit (Bld) [Volume fraction] 51.8 % Critically high 36.0-48.0 [facility] Comment on above: Performed By: #### C BC #### [facility] [address] [place] [address] Dr. Ashlie Hills Hemoglobin (Bld) [Mass/Vol] 16.6 g/dL Critically high 12.0-16.0 [facility] Comment on above: Performed By: #### C BC #### [facility] [address] [place] [address] Dr. Ashlie Hills IG # 0.03 10e3/ul Normal 0.00-0.03 [facility] Comment on above: Performed By: #### C BC #### [facility] [address] [place] [address] Dr. Ashlie Hills IG % 0.2 % Normal 0.0-0.5 [facility] Comment on above: Performed By: #### C BC #### [facility] [address] [place] [address] Dr. Ashlie Hills LYMPH # 3.9 103/ul Critically high 1.2-3.8 [facility] Comment on above: Performed By: #### C BC #### [facility] [address] [place] [address] Dr. Ashlie Hills Lymphocytes/100 WBC (Bld) 31.7 % Normal 20.5-60.0 [facility] Comment on above: Performed By: #### C BC #### [facility] [address] [place] [address] Dr. Ashlie Hills MANUAL DIFF REQ NO Normal [facility] Comment on above: Performed By: #### C BC #### [facility] [address] [place] [address] Dr. Ashlie Hills MCH (RBC) [Entitic mass] 27.9 pg Normal 26.7-34.0 [facility] Comment on above: Performed By: #### C BC #### [facility] [address] [place] [address] Dr. Ashlie Hills MCHC (RBC) [Mass/Vol] 32.0 g/dL Normal 29.9-35.2 [facility] Comment on above: Performed By: #### C BC #### [facility] [address] [place] [address] Dr. Ashlie Hills MCV (RBC) [Entitic vol] 87.1 fL Normal 81.0-99.0 [facility] Comment on above: Performed By: #### C BC #### [facility] [address] [place] [address] Dr. Ashlie Hills MONO # 0.7 103/ul Normal 0.3-0.8 [facility] Comment on above: Performed By: #### C BC #### [facility] [address] [place] [address] Dr. Ashlie Hills Monocytes/100 WBC (Bld) 5.8 % Normal 1.7-12.0 [facility] Comment on above: Performed By: #### C BC #### [facility] [address] [place] [address] Dr. Ashlie Hills NEUT # 7.3 103/ul Critically high 1.4-6.5 [facility] Comment on above: Performed By: #### C BC #### [facility] [address] [place] [address] Dr. Ashlie Hills Neutrophils/100 WBC (Bld) 59.6 % Normal 43.0-75.0 [facility] Comment on above: Performed By: #### C BC #### [facility] [address] [place] [address] Dr. Ashlie Hills Platelet mean volume (Bld) [Entitic vol] 11.7 fL Normal 9.5-13.5 [facility] Comment on above: Performed By: #### C BC #### [facility] [address] [place] [address] Dr. Ashlie Hills PLT 117 103/ul Critically low 150-450 [facility] Comment on above: Performed By: #### C BC #### [facility] [address] [place] [address] Dr. Ashlie Hills RBC 5.95 106/ul Critically high 4.20-5.40 [facility] Comment on above: Performed By: #### C BC #### [facility] [address] [place] [address] Dr. Ashlie Hills WBC 12.3 103/ul Critically high 4.0-11.0 [facility] Comment on above: Performed By: #### C BC #### [facility] [address] [place] [address] ABD/PELV W CONon [...] [facility] URINE PROFILEon 3 Bilirubin Ql (U) Negative Normal NEGATIVE [facility] Comment on above: Performed By: #### P OCGLUC #### [facility] [address] [place] [address] Dr. Ashlie Hills Clarity (U) CLEAR Normal CLEAR [facility] Comment on above: Performed By: #### P OCGLUC #### [facility] [address] [place] [address] Dr. Ashlie Hills Color (U) YELLOW Normal YELLOW [facility] Comment on above: Performed By: #### P OCGLUC #### [facility] [address] [address] [address] Ashlie Hills ERUAHD A micrscopic examination will be performed if indicated. Normal [facility] Comment on above: Performed By: #### P OCGLUC #### [facility] [address] [address] [address] Ashlie Hills Glucose Ql (U) Negative Normal NEGATIVE [facility] Comment on above: Performed By: #### P OCGLUC #### [facility] [address] [address] [address] Ashlie Hills Hemoglobin Ql (U) Negative Normal NEGATIVE [facility] Comment on above: Performed By: #### P OCGLUC #### [facility] [address] [place] [address] Dr. Ashlie Hills Ketones Ql (U) Negative Normal NEGATIVE [facility] Comment on above: Performed By: #### P OCGLUC #### [facility] [address] [place] [address] Dr. Ashlie Hills LEUKOCYTES Negative Normal NEGATIVE [facility] Comment on above: Performed By: #### P OCGLUC #### [facility] [address] [place] [address] Dr. Ashlie Hills Nitrite Ql (U) Negative Normal NEGATIVE [facility] Comment on above: Performed By: #### P OCGLUC #### [facility] [address] [place] [address] Dr. Ashlie Hills pH (U) 6.0 [pH] Normal 5-9 [facility] Comment on above: Performed By: #### P OCGLUC #### [facility] [address] [place] [address] Dr. Ashlie Hills Protein (U) [Mass/Vol] 100 mg/dL Abnormal NEGAT YURY/ TRACE [facility] Comment on above: Performed By: #### P OCGLUC #### [facility] [address] [place] [address] Dr. Ashlie Hills SPEC GRAVITY 1.010 Normal 1.005-<=1.025 [facility] Comment on above: Performed By: #### P OCGLUC #### [facility] [address] [place] [address] Dr. Ashlie Hills UR MICRO IND INDICATED Normal [facility] Comment on above: Performed By: #### P OCGLUC #### [facility] [address] [place] [address] Dr. Ashlie Hills Urobilinogen Qn (U) 1.0 {Little'U}/dL Normal 0.2 - 1. 0 [facility] Comment on above: Performed By: #### P OCGLUC #### [facility] [address] [place] [address] Dr. Ashlie Hills LIPASEon 10-05-2022 Lipase [Catalytic activity/Vol] 1771.0 U/L Critically high 73.0-393.0 [facility] Comment on above: Performed By: #### C BC #### [facility] [address] [place] [address] Dr. Ashlie Hills PREG HCG QUALon 10-05-2022 , QUAL Negative Normal NEGATIVE [facility] Comment on above: Performed By: #### P OCGLUC #### [facility] [address] [place] [address] Dr. Ashlie Hills PROF 14(COMP METB)on 023 Albumin [Mass/Vol] 3.2 g/dL Critically low 3.4-5.0 [facility] Comment on above: Performed By: #### C BC #### [facility] [address] [place] [address] Dr. Ashlie Hills Albumin/Globulin [Mass ratio] 0.7 {ratio} Normal [facility] Comment on above: Performed By: #### C BC #### [facility] [address] [place] [address] Dr. Ashlie Hills ALP [Catalytic activity/Vol] 70 U/L Normal 46-116 [facility] Comment on above: Performed By: #### C BC #### [facility] [address] [place] [address] Dr. Ashlie Hills ALT [Catalytic activity/Vol] 11 U/L Critically low 14-59 [facility] Comment on above: Performed By: #### C BC #### [facility] [address] [place] [address] Dr. Ashlie Hills Anion gap [Moles/Vol] 10.3 mmol/L Normal [facility] Comment on above: Performed By: #### C BC #### [facility] [address] [place] [address] Dr. Ashlie Hills AST [Catalytic activity/Vol] 11 U/L Critically low 15-37 [facility] Comment on above: Performed By: #### C BC #### [facility] [address] [place] [address] Dr. Ashlie Hills Bilirubin [Mass/Vol] 0.9 mg/dL Normal 0.2-1.0 [facility] Comment on above: Performed By: #### C BC #### [facility] [address] [place] [address] Dr. Ashlie Hills Calcium [Mass/Vol] 9.3 mg/dL Normal 8.5-10.1 [facility] Comment on above: Performed By: #### C BC #### [facility] [address] [place] [address] Dr. Ashlie Hills Chloride [Moles/Vol] 105 mmol/L Normal 98-107 [facility] Comment on above: Performed By: #### C BC #### [facility] [address] [address] [address] Ashlie Hills CO2 [Moles/Vol] 30.6 mmol/L Normal 21.0-32.0 [facility] Comment on above: Performed By: #### C BC #### [facility] [address] [place] [address] Dr. Ashlie Hills Creatinine [Mass/Vol] 0.62 mg/dL Normal 0.55-1.02 [facility] Comment on above: Performed By: #### C BC #### [facility] [address] [place] [address] Dr. Ashlie Hills EGFR-AF MOZAMBICAN >60 Normal >=60 [facility] Comment on above: Performed By: #### C BC #### [facility] [address] [place] [address] Dr. Ashlie Hills EGFR-NON AF MOZAMBICAN >60 Normal >=60 [facility] Comment on above: Performed By: #### C BC #### [facility] [address] [place] [address] Dr. Ashlie Hills Globulin (S) [Mass/Vol] 4.6 g/dL Normal [facility] Comment on above: Performed By: #### C BC #### [facility] [address] [place] [address] Dr. Ashlie Hills Glucose [Mass/Vol] 85 mg/dL Normal 74-106 [facility] Comment on above: Performed By: #### C BC #### [facility] [address] [place] [address] Dr. Ashlie Hills Potassium [Moles/Vol] 3.9 mmol/L Normal 3.5-5.1 [facility] Comment on above: Performed By: #### C BC #### [facility] [address] [address] [address] Ashlie Hills Protein [Mass/Vol] 7.8 g/dL Normal 6.4-8.2 [facility] Comment on above: Performed By: #### C BC #### [facility] [address] [address] [address] Ashlie Hills Sodium [Moles/Vol] 142 mmol/L Normal 136-145 [facility] [place] Comment on above: Performed By: #### C BC #### [facility] [address] [address] [address] Ashlie Hills Urea nitrogen [Mass/Vol] 12.0 mg/dL Normal 7.0-18.0 [facility] Comment on above: Performed By: #### C BC #### [facility] [address] [place] [address] Dr. Ashlie Hills Urea nitrogen/Creatinine [Mass ratio] 19.4 mg/mg Normal [facility] Comment on above: Performed By: #### C BC #### [facility] [address] [address] [address] Ashlie Hills URINE MICROSCOPIC ONLYon BACTERIA TRACE Abnormal NONE SEEN [facility] Comment on above: Performed By: #### P OCGLUC #### [facility] [address] [place] [address] Dr. Ashlie Hills Bacteria identified Cx Nom (U) NOT INDICATED Normal [facility] Comment on above: Performed By: #### P OCGLUC #### [facility] [address] [place] [address] Dr. Ashlie Hills CAST NONE SEEN Normal NONE SEEN [facility] Comment on above: Performed By: #### P OCGLUC #### [facility] [address] [place] [address] Dr. Ashlie Hills Crystals LM Nom (Urine sed) NONE SEEN Normal NONE SEEN [facility] Comment on above: Performed By: #### P OCGLUC #### [facility] [address] [place] [address] Dr. Ashlie Hills Epithelial cells LM Ql (Urine sed) MODERATE Abnormal NONE SEEN /RARE [facility] Comment on above: Performed By: #### P OCGLUC #### [facility] [address] [place] [address] Dr. Ashlie Hills MUCOUS NONE SEEN Normal NONE SEEN [facility] Comment on above: Performed By: #### P OCGLUC #### [facility] [address] [place] [address] Dr. Ashlie Hills RBC 0-2 Normal 0-2 [facility] Comment on above: Performed By: #### P OCGLUC #### [facility] [address] [place] [address] Dr. Ashlie Hills WBC 0-2 Abnormal NONE SEEN [facility] Comment on above: Performed By: #### P OCGLUC #### [facility] [address] [place] [address] Dr. Ashlie Hills Covid-19 PCR ([facility])on 09-06 SARS-CoV-2 (COVID-19) RNA MADDY+probe Ql (Unsp spec) Detected Abnormal NOT DETECTED [facility] Comment on above: Result Comment: This test is not yet approved or cleared by the [place] FDA. When there are no FDA-approved or cleared tests available, and other criteria are met, FDA can make tests available under an emergency access mechanism called an Emergency Use Authorization (EUA). The EUA for this test is supported by the [place] of Health and Human Service's declaration that [...] VDAGS #### [facility] [address] [place] [address] Dr. Ashlie Hills INFLUENZA A AND B AGon 09-21 INFLUANEGH SEE BELOW Normal [facility] Comment on above: Result Comment: Nega tive for Flu A protein angiten. Infection due to Flu A cannot be ruled out. Flu A angiten in the sample may be below the detection limit of the test. Performed By: #### I NFLUAB #### [facility] [address] [place] [address] Dr. Ashlie Hills INFLUBNEG SEE BELOW Normal [facility] Comment on above: Result Comment: Nega tive for Flu B protein antigen. Infection due to Flu B cannot be ruled out. Flu B antigen in the sample may be below the detection limit of the test. Performed By: #### I NFLUAB #### [facility] [address] [place] [address] Dr. Ashlie Hills INFLUENZA A AG Negative Normal NEGATIVE SEE COMMENT [facility] Comment on above: Performed By: #### I NFLUAB #### [facility] [address] [place] [address] Dr. Ashlie Hills INFLUENZA B AG Negative Normal NEGATIVE SEE COMMENT [facility] Comment on above: Performed By: #### I NFLUAB #### [facility] [address] [place] [address] ABD/PELV W CONon [...] to at least 10/21/2018, unchanged. https://www.ncbi.nlm .nih.gov/pmc/article s/[id number] Electronically authenticated by: COLLIN HUERTAS Date: 2022-07-27 14:56 Normal [facility] CREATININEon 07-18-2022 Creatinine [Mass/Vol] 0.81 mg/dL Normal 0.55-1.02 [facility] Comment on above: Performed By: #### C BC #### [facility] [address] [place] [address] Dr. Ashlie Hills EGFR-AF MOZAMBICAN >60 Normal >=60 [facility] Comment on above: Performed By: #### C BC #### [facility] [address] [place] [address] Dr. Ashlie Hills EGFR-NON AF MOZAMBICAN >60 Normal >=60 [facility] Comment on above: Performed By: #### C BC #### [facility] [address] [place] [address] LOW EXT W [...] [facility] XR KNEE LT 1_2 Von XR KNEE [...] [facility] SARS-CoV-2 (COVID-19) RNA MADDY+probe Ql (Unsp spec) Not detected Normal NOT DETECTED [facility] Comment on above: Result Comment: This test is not yet approved or cleared by the [place] FDA. When there are no FDA-approved or cleared tests available, and other criteria are met, FDA can make tests available under an emergency access mechanism called an Emergency Use Authorization (EUA). The EUA for this test is supported by the 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 of Health and Human Service's (HHS's) [...] BC #### [facility] [address] [place] [address] Dr. Ashlie Hills IN[facility]ENZA A [facility] B [facility] Normal [facility] Comment on above: Result Comment: Nega tive for Flu A protein angiten. Infection due to Flu A cannot be ruled out. Flu A angiten in the sample may be below the detection limit of the test. Performed By: #### C BC #### [facility] [address] [address] [address] Ashlie Hills INFLUBNEG SEE BELOW Normal [facility] Comment on above: Result Comment: Nega tive for Flu B protein antigen. Infection due to Flu B cannot be ruled out. Flu B antigen in the sample may be below the detection limit of the test. Performed By: #### C BC #### [facility] [address] [place] [address] Dr. Ashlie Hills INFLUENZA A AG Negative Normal NEGATIVE SEE COMMENT [facility] Comment on above: Performed By: #### C BC #### [facility] [address] [address] [address] Ashlie Hills INFLUENZA B AG Negative Normal NEGATIVE SEE COMMENT [facility] Comment on above: Performed By: #### C BC #### [facility] [address] [place] [address] Dr. Ashlie Hills POINT OF CARE GLUCOSEon 10- Glucose [Mass/Vol] 108 mg/dL Critically high 74-106 [facility] Comment on above: Performed By: #### C BC #### [facility] [address] [place] [address] Dr. Ashlie Hills RAGHU by IFAon 03-07-2022 Antinuclear Antibodies, IFA Negative Normal [facility] Comment on above: Result Comment: Nega tive <1:80 Borderline 1:80 Positive >1:80 ICAP nomenclature: AC-0 For more information about Hep-2 cell patterns use ANApatterns.org, the official website for the International Consensus on Antinuclear Antibody (RAGHU) Patterns (ICAP). Performed By: #### A NAIFA #### [facility] [address] [place] [address] Dr. Ashlie Hills IMMUNOFIXATION (TREVON), URINEo n 03-07-2022 TREVON Interpretation:U Comment Normal [facility] Comment on above: Result Comment: No m onoclonality detected. Performed By: #### C BC #### [facility] [address] [place] [address] Dr. Ashlie Hills IMMUNOFIXATION(TREVON),PROTEIN ELEC(PE),FREon 03-07-2022 Albumin [Mass/Vol] 3.0 g/dL Normal 2.9-4.4 [facility] Comment on above: Performed By: #### I NFLUAB #### [facility] [address] [place] [address] Dr. Ashlie Hills Albumin/Globulin [Mass ratio] 0.8 {ratio} Normal 0.7-1.7 [facility] Comment on above: Performed By: #### I NFLUAB #### [facility] [address] [place] [address] Dr. Ashlie Hills Pyoyw-6-Nflzhpuq 0.3 g/dL Normal 0.0-0.4 [facility] Comment on above: Performed By: #### I NFLUAB #### [facility] [address] [place] [address] Dr. Ashlie Hills Upjkj-9-Swmzozwo 1.0 g/dL Normal 0.4-1.0 [facility] Comment on above: Performed By: #### I NFLUAB #### [facility] [address] [place] [address] Dr. Ashlie Hills Beta Globulin 1.8 g/dL Critically high 0.7-1.3 [facility] Comment on above: Performed By: #### I NFLUAB #### [facility] [address] [place] [address] Dr. Ashlie Hills Free Avella Lt Chains,S 45.2 mg/L Critically high 3.3-19.4 [facility] Comment on above: Performed By: #### I NFLUAB #### [facility] [address] [place] [address] Dr. Ashlie Hills Free Lambda Lt Chains,S 40.3 mg/L Critically high 5.7-26.3 [facility] Comment on above: Performed By: #### I NFLUAB #### [facility] [address] [place] [address] Dr. Ashlie Hills Gamma Globulin 0.8 g/dL Normal 0.4-1.8 [facility] Comment on above: Performed By: #### I NFLUAB #### [facility] [address] [place] [address] Dr. Ashlie Hills Globulin (S) [Mass/Vol] 3.9 g/dL Normal 2.2-3.9 [facility] Comment on above: Performed By: #### I NFLUAB #### [facility] [address] [place] [address] Dr. Ashlie Hills Immunofixation Result, Serum Comment Normal [facility] Comment on above: Result Comment: No m onoclonality detected. Performed By: #### I NFLUAB #### [facility] [address] [address] [address] Ashlie Hills Immunoglobulin A, Qn, Serum 776 mg/dL Critically high 87-352 [facility] Comment on above: Performed By: #### I NFLUAB #### [facility] [address] [place] [address] Dr. Ashlie Hills Immunoglobulin G, Qn, Serum 955 mg/dL Normal 586-1602 [facility] Comment on above: Performed By: #### I NFLUAB #### [facility] [address] [place] [address] Dr. Ashlie Hills Immunoglobulin M, Qn, Serum 39 mg/dL Normal 26-217 [facility] Comment on above: Performed By: #### I NFLUAB #### [facility] [address] [place] [address] Dr. Ashlie Hills Avella/Lambda Ratio, S 1.12 Normal 0.26-1.65 [facility] Comment on above: Performed By: #### I NFLUAB #### [facility] [address] [address] [address] Ashlie Hills M-Bright Not Observed Normal Not Observed [facility] Comment on above: Performed By: #### I NFLUAB #### [facility] [address] [place] [address] Dr. Ashlie Hills PDF . Normal [facility] Comment on above: Performed By: #### I NFLUAB #### [facility] [address] [place] [address] Dr. Ashlie Hills Please note: Comment Normal [facility] Comment on above: Result Comment: Prot ein electrophoresis scan will follow via computer, mail, or child attendant delivery. Performed By: #### I NFLUAB #### [facility] [address] [address] [address] Ashlie Hills Protein [Mass/Vol] 6.9 g/dL Normal 6.0-8.5 [facility] Comment on above: Performed By: #### I NFLUAB #### [facility] [address] [address] [address] Ashlie Hills C-PEPTIDE, SERUMon C-Peptide, Serum 3.1 ng/mL Normal 1.1-4.4 [facility] Comment on above: Result Comment: C-Pe ptide reference interval is for fasting patients. Performed By: #### C PEPT #### [facility] [address] [place] [address] Dr. Ashlie Hills HEP B SURFACE ANTIGEN SCREEN on 03-04-2022 HBsAg Screen Negative Normal Negative [facility] Comment on above: Performed By: #### C BC #### [facility] [address] [address] [address] Ashlie Hills HEPATITIS C VIRUS AB W/ REFL EX QUANTon 03-04-2022 HCV AB <0.1 Normal 0.0-0.9 [facility] Comment on above: Performed By: #### I NFLUAB #### [facility] [address] [place] [address] Dr. Ashlie Hills Interpretation: Comment Normal [facility] [place] [facility] Comment on above: Result Comment: Nega tive Not infected with HCV, unless recent infection is suspected or other evidence exists to indicate HCV infection. Performed By: #### I NFLUAB #### [facility] [address] [address] [address] Ashlie Hills MICROALBUMIN/ CREATININE RAT IOon 03-04-2022 Albumin, Urine 367.4 ug/mL Normal Not Estab. [facility] [place] [facility] Comment on above: Performed By: #### C BC #### [facility] [address] [address] [address] Ashlie Hills Albumin/ Creatinine Ratio 239 mg/g creat Critically high 0-29 [facility] Comment on above: Result Comment: Norm al: 0 - 29 Moderately increased: 30 - 300 Severely increased: >300 Performed By: #### C BC #### [facility] [address] [address] [address] Ashlie Hills Creatinine, Urine 153.9 mg/dL Normal Not Estab. [facility] Comment on above: Performed By: #### C BC #### [facility] [address] [address] [address] Ashlie Hills VIT D 25-[place] LABCORPon 2021 Vitamin D, 25-Hydroxy <4.0 Critically low 30.0-100.0 [facility] Comment on above: Result Comment: Graciela min D deficiency has been defined by the [place] of Medicine and an Endocrine Society practice guideline as a level of serum 25-OH vitamin D less than 20 ng/mL (1,2). The Endocrine Society went on to further define vitamin D insufficiency as a level between 21 and 29 ng/mL (2). 1. IOM ([place] of Medicine). 2010. Dietary reference intakes for calcium and D. [place]: The National Academies Press. 2. Lynda MF, Keely [place], Leandra LOPEZ, et al. Evaluation, treatment, and prevention of vitamin D deficiency: an Endocrine Society clinical practice guideline. JCEM. 2010; 96(7):1911-30. Performed By: #### C BC #### [facility] [address] [place] [address] Dr. Ashlie Hills GLYCOHEMOGLOBIN A1Con 2021 ADA RECOMMENDATION SEE BELOW Normal [facility] Comment on above: Result Comment: ADA RECOMMENDED LIMIT 4.0 - 6.0 ADA THERAPEUTIC TARGET < 7.0 ACTION SUGGESTED > 7.0 Performed By: #### C VDAGS #### [facility] [address] [address] [address] Ashlie Hills Glucose [Mass/Vol] 295 mg/dL Normal [facility] Comment on above: Performed By: #### C VDAGS #### [facility] [address] [address] [address] Ashlie Hills HbA1c (Bld) [Mass fraction] 11.9 % Critically high 4.5-6.2 [facility] Comment on above: Performed By: #### C VDAGS #### [facility] [address] [place] [address] Dr. Ashlie Hills HEMOGRAM AND PLATELon 2021 Hematocrit (Bld) [Volume fraction] 56.3 % Critically high 36.0-48.0 [facility] Comment on above: Performed By: #### C VDAGS #### [facility] [address] [place] [address] Dr. Ashlie Hills Hemoglobin (Bld) [Mass/Vol] 18.0 g/dL Critically high 12.0-16.0 [facility] Comment on above: Performed By: #### C VDAGS #### [facility] [address] [place] [address] Dr. Ashlie Hills MCH (RBC) [Entitic mass] 29.5 pg Normal 26.7-34.0 [facility] Comment on above: Performed By: #### C VDAGS #### [facility] [address] [place] [address] Dr. Ashlie Hills MCHC (RBC) [Mass/Vol] 32.0 g/dL Normal 29.9-35.2 [facility] Comment on above: Performed By: #### C VDAGS #### [facility] [address] [place] [address] Dr. Ashlie Hills MCV (RBC) [Entitic vol] 92.1 fL Normal 81.0-99.0 [facility] Comment on above: Performed By: #### C VDAGS #### [facility] [address] [place] [address] Dr. Ashlie Hills PLT 123 103/ul Critically low 150-450 [facility] Comment on above: Performed By: #### C VDAGS #### [facility] [address] [place] [address] Dr. Ashlie Hills RBC 6.11 106/ul Critically high 4.20-5.40 [facility] Comment on above: Performed By: #### C VDAGS #### [facility] [address] [address] [address] Ashlie Hills WBC 16.4 103/ul Critically high 4.0-11.0 [facility] Comment on above: Performed By: #### C VDAGS #### [facility] [address] [address] [address] Ashlie Hills LIPID PROFILEon 03-03-2022 CHOL-HDL RATIO NORM SEE BELOW Normal [facility] Comment on above: Result Comment: 3.3 - 4.4 LOW RISK 4.4 - 7.1 AVERAGE RISK 7.1 - 11.0 MODERATE RISK >11.0 HIGH RISK Performed By: #### C VDAGS #### [facility] [address] [place] [address] Dr. Ashlie Hills Cholesterol [Mass/Vol] 159 mg/dL Normal <=200 [facility] Comment on above: Performed By: #### C VDAGS #### [facility] [address] [address] [address] Ashlie Hills Cholesterol in HDL [Mass/Vol] 40 mg/dL Normal 40-60 [facility] Comment on above: Performed By: #### C VDAGS #### [facility] [address] [place] [address] Dr. Ashlie Hills Cholesterol in LDL [Mass/Vol] 81.8 mg/dL Normal [facility] Comment on above: Performed By: #### C VDAGS #### [facility] [address] [address] [address] Ashlie Hills Cholesterol.total/Chol esterol in HDL [Mass ratio] 4.0 {ratio} Normal [facility] Comment on above: Performed By: #### C VDAGS #### [facility] [address] [place] [address] Dr. Ashlie Hills HDL NORMAL > or = 60 mg/dl - LOW CARDIOVASCULAR RISK <40 mg/dl - HIGH CARDIOVASCULAR RISK Normal [facility] Comment on above: Performed By: #### C VDAGS #### [facility] [address] [place] [address] Dr. Ashlie Hills LDL CALC NORMAL SEE BELOW Normal [facility] Comment on above: Result Comment: <100 mg/dl OPTIMAL 100 - 129 mg/dl NEAR OR ABOVE OPTIMAL 130 - 159 mg/dl BORDERLINE HIGH 160 - 189 mg/dl HIGH >190 mg/dl VERY HIGH Performed By: #### C VDAGS #### [facility] [address] [address] [address] Ashlie Hills Triglyceride [Mass/Vol] 186 mg/dL Critically high <=150 [facility] Comment on above: Performed By: #### C VDAGS #### [facility] [address] [address] [address] Ashlie Hills VLDL CALC 37.2 mg/dL Normal [facility] Comment on above: Performed By: #### C VDAGS #### [facility] [address] [address] [address] Ashlie Hills RENAL FUNCTION PANELon 03-03 Albumin [Mass/Vol] 3.1 g/dL Critically low 3.4-5.0 [facility] Comment on above: Performed By: #### C BC #### [facility] [address] [address] [address] Ashlie Hills Calcium [Mass/Vol] 9.2 mg/dL Normal 8.5-10.1 [facility] [place] Comment on above: Performed By: #### C BC #### [facility] [address] [address] [address] Ashlie Hills Chloride [Moles/Vol] 102 mmol/L Normal 98-107 [facility] Comment on above: Performed By: #### C BC #### [facility] [address] [address] [address] Ashlie Hills CO2 [Moles/Vol] 31.9 mmol/L Normal 21.0-32.0 [facility] Comment on above: Performed By: #### C BC #### [facility] [address] [address] [address] Ashlie Hills Creatinine [Mass/Vol] 0.68 mg/dL Normal 0.55-1.02 [facility] Comment on above: Performed By: #### C BC #### [facility] [address] [address] [address] Ashlie Hills EGFR-AF MOZAMBICAN >60 Normal >=60 [facility] Comment on above: Performed By: #### C BC #### [facility] [address] [address] [address] Ashlie Hills EGFR-NON AF MOZAMBICAN >60 Normal >=60 [facility] Comment on above: Performed By: #### C BC #### [facility] [address] [address] [address] Ashlie Hills Glucose [Mass/Vol] 131 mg/dL Critically high 74-106 [facility] Comment on above: Performed By: #### C BC #### [facility] [address] [place] [address] Dr. Ashlie Hills Phosphate [Mass/Vol] 4.0 mg/dL Normal 2.6-4.7 [facility] Comment on above: Performed By: #### C BC #### [facility] [address] [place] [address] Dr. Ashlie Hills Potassium [Moles/Vol] 4.0 mmol/L Normal 3.5-5.1 [facility] Comment on above: Performed By: #### C BC #### [facility] [address] [place] [address] Dr. Ashlie Hills Sodium [Moles/Vol] 141 mmol/L Normal 136-145 [facility] [place] Comment on above: Performed By: #### C BC #### [facility] [address] [address] [address] Ashlie Hills Urea nitrogen [Mass/Vol] 17.0 mg/dL Normal 7.0-18.0 [facility] Comment on above: Performed By: #### C BC #### [facility] [address] [place] [address] Dr. Ashlie Hills UA RANDOM W/MICROSCOPICon BACTERIA NONE SEEN Normal NONE SEEN [facility] Comment on above: Performed By: #### I NFLUAB #### [facility] [address] [place] [address] Dr. Ashlie Hills Bilirubin Ql (U) Negative Normal NEGATIVE [facility] Comment on above: Performed By: #### I NFLUAB #### [facility] [address] [address] [address] Ashlie Hills CAST NONE SEEN Normal NONE SEEN [facility] Comment on above: Performed By: #### I NFLUAB #### [facility] [address] [place] [address] Dr. Ashlie Hills Clarity (U) CLEAR Normal CLEAR [facility] Comment on above: Performed By: #### I NFLUAB #### [facility] [address] [place] [address] Dr. Ashlie Hills Color (U) YELLOW Normal YELLOW [facility] Comment on above: Performed By: #### I NFLUAB #### [facility] [address] [place] [address] Dr. Ashlie Hills Crystals LM Nom (Urine sed) NONE SEEN Normal NONE SEEN [facility] Comment on above: Performed By: #### I NFLUAB #### [facility] [address] [place] [address] Dr. Ashlie Hills Epithelial cells LM Ql (Urine sed) FEW Abnormal NONE SEEN /RARE [facility] Comment on above: Performed By: #### I NFLUAB #### [facility] [address] [place] [address] Dr. Ashlie Hills Glucose Ql (U) Negative Normal NEGATIVE [facility] Comment on above: Performed By: #### I NFLUAB #### [facility] [address] [place] [address] Dr. Ashlie Hills Hemoglobin Ql (U) Negative Normal NEGATIVE [facility] Comment on above: Performed By: #### I NFLUAB #### [facility] [address] [place] [address] Dr. Ashlie Hills Ketones Ql (U) Negative Normal NEGATIVE [facility] Comment on above: Performed By: #### I NFLUAB #### [facility] [address] [place] [address] Dr. Ashlie Hills LEUKOCYTES Negative Normal NEGATIVE [facility] Comment on above: Performed By: #### I NFLUAB #### [facility] [address] [place] [address] Dr. Ashlie Hills MUCOUS NONE SEEN Normal NONE SEEN [facility] Comment on above: Performed By: #### I NFLUAB #### [facility] [address] [place] [address] Dr. Ashlie Hills Nitrite Ql (U) Negative Normal NEGATIVE [facility] Comment on above: Performed By: #### I NFLUAB #### [facility] [address] [place] [address] Dr. Ashlie Hills pH (U) 5.5 [pH] Normal 5-9 [facility] Comment on above: Performed By: #### I NFLUAB #### [facility] [address] [place] [address] Dr. Ashlie Hills RBC 0-2 Normal 0-2 [facility] Comment on above: Performed By: #### I NFLUAB #### [facility] [address] [place] [address] Dr. Ashlie Hills SPEC GRAVITY >=1.030 Abnormal 1.005-<=1.025 [facility] [place] [facility] Comment on above: Performed By: #### I NFLUAB #### [facility] [address] [place] [address] Dr. Ashlie Hills UA PROTEIN 100 mg/dl Abnormal NEGATIVE/ TRACE [facility] Comment on above: Performed By: #### I NFLUAB #### [facility] [address] [place] [address] Dr. Ashlie Hills Urobilinogen Qn (U) 0.2 {Little'U}/dL Normal 0.2 - 1. 0 [facility] Comment on above: Performed By: #### I NFLUAB #### [facility] [address] [place] [address] Dr. Ashlie Hills WBC NONE SEEN Normal NONE SEEN [facility] Comment on above: Performed By: #### I NFLUAB #### [facility] [address] [place], [place] [id number] Dr. Ashlie Hills URIC ACID SERUMon 03-03-2022 Urate [Mass/Vol] 5.0 mg/dL Normal 2.6-6.0 [facility] Comment on above: Performed By: #### I NFLUAB #### [facility] [address] [place] [address] Dr. Ashlie Hills URINE T PROTEIN CREAT RATIOo n 03-03-2022 Protein (U) [Mass/Vol] 77.9 mg/dL Critically high <=12.0 [facility] Comment on above: Performed By: #### C VDAGS #### [facility] [address] [place] [address] Dr. Ashlie Hills UR PROT CREAT RAT 0.44 Normal [facility] Comment on above: Performed By: #### C VDAGS #### [facility] [address] [place] [address] Dr. Ashlie Hills URINE CREAT 175.15 mg/dL Normal 20.00-300.00 [facility] [place] [facility] Comment on above: Performed By: #### C VDAGS #### [facility] [address] [place] [address] Dr. Ashlie Hills CULTURE URINEon 12-25-2021 CULTURE URINE Culture Observations: GREATER THAN TWO ORGANISMS PRESENT, HEAVILY MIXED. PLEASE RESUBMIT CLEAN CATCH MID-STREAM URINE IF CLINICALLY INDICATED. Normal [facility] Comment on above: Performed By: #### I NFLUAB #### [facility] [address] [place] [address] Dr. Ashlie Hills CBC AUTO DIFFon 12-24-2021 BASO # 0.1 103/ul Normal 0.0-0.1 [facility] Comment on above: Performed By: #### C BC #### [facility] [address] [place] [address] Dr. Ashlie Hills Basophils/100 WBC (Bld) 0.5 % Normal 0.2-2.0 [facility] Comment on above: Performed By: #### C BC #### [facility] [address] [place] [address] Dr. Ashlie Hills EO # 0.4 103/ul Normal 0.0-0.7 [facility] Comment on above: Performed By: #### C BC #### [facility] [address] [place] [address] Dr. Ashlie Hills Eosinophils/100 WBC (Bld) 2.4 % Normal 0.9-7.0 [facility] Comment on above: Performed By: #### C BC #### [facility] [address] [place] [address] Dr. Ashlie Hills Erythrocyte distribution width (RBC) [Ratio] 14.1 % Normal 11.0-15.0 [facility] Comment on above: Performed By: #### C BC #### [facility] [address] [place] [address] Dr. Ashlie Hills Hematocrit (Bld) [Volume fraction] 55.9 % Critically high 36.0-48.0 [facility] Comment on above: Performed By: #### C BC #### [facility] [address] [place] [address] Dr. Ashlie Hills Hemoglobin (Bld) [Mass/Vol] 17.9 g/dL Critically high 12.0-16.0 [facility] Comment on above: Performed By: #### C BC #### [facility] [address] [place] [address] Dr. Ashlie Hills IG # 0.06 10e3/ul Critically high 0.00-0.03 [facility] Comment on above: Performed By: #### C BC #### [facility] [address] [place] [address] Dr. Ashlie Hills IG % 0.4 % Normal 0.0-0.5 [facility] Comment on above: Performed By: #### C BC #### [facility] [address] [place] [address] Dr. Ashlie Hills LYMPH # 5.8 103/ul Critically high 1.2-3.8 [facility] [place] [facility] Comment on above: Performed By: #### C BC #### [facility] [address] [place] [address] Dr. Ashlie Hills Lymphocytes/100 WBC (Bld) 35.4 % Normal 20.5-60.0 [facility] Comment on above: Performed By: #### C BC #### [facility] [address] [place] [address] Dr. Ashlie Hills MANUAL DIFF REQ NO Normal [facility] Comment on above: Performed By: #### C BC #### [facility] [address] [place] [address] Dr. Ashlie Hills MCH (RBC) [Entitic mass] 29.4 pg Normal 26.7-34.0 [facility] Comment on above: Performed By: #### C BC #### [facility] [address] [place] [address] Dr. Ashlie Hills MCHC (RBC) [Mass/Vol] 32.0 g/dL Normal 29.9-35.2 [facility] Comment on above: Performed By: #### C BC #### [facility] [address] [place] [address] Dr. Ashlie Hills MCV (RBC) [Entitic vol] 91.8 fL Normal 81.0-99.0 [facility] Comment on above: Performed By: #### C BC #### [facility] [address] [place] [address] Dr. Ashlie Hills MONO # 0.8 103/ul Normal 0.3-0.8 [facility] Comment on above: Performed By: #### C BC #### [facility] [address] [place] [address] Dr. Ashlie iHlls Monocytes/100 WBC (Bld) 4.8 % Normal 1.7-12.0 [facility] Comment on above: Performed By: #### C BC #### [facility] [address] [place] [address] Dr. Ashlie Hills NEUT # 9.3 103/ul Critically high 1.4-6.5 [facility] Comment on above: Performed By: #### C BC #### [facility] [address] [place] [address] Dr. Ashlie Hills Neutrophils/100 WBC (Bld) 56.5 % Normal 43.0-75.0 [facility] Comment on above: Performed By: #### C BC #### [facility] [address] [address] [address] Ashlie Hills Platelet mean volume (Bld) [Entitic vol] 12.9 fL Normal 9.5-13.5 [facility] Comment on above: Performed By: #### C BC #### [facility] [address] [address] [address] Ashlie Hills PLT 127 103/ul Critically low 150-450 [facility] Comment on above: Performed By: #### C BC #### [facility] [address] [address] [address] Ashlie Hills RBC 6.09 106/ul Critically high 4.20-5.40 [facility] Comment on above: Performed By: #### C BC #### [facility] [address] [place] [address] Dr. Ashlie Hills WBC 16.4 103/ul Critically high 4.0-11.0 [facility] Comment on above: Performed By: #### C BC #### [facility] [address] [place] [address] ABD/PELVIS WO CONon [...] [facility] ER URINE PROFILEon 2 Bilirubin Ql (U) Negative Normal NEGATIVE [facility] Comment on above: Performed By: #### E EVONNE LYMAN #### [facility] [address] [place], [place] [address] Dr. Ashlie Hills Clarity (U) CLEAR Normal CLEAR [facility] Comment on above: Performed By: #### E MADELINE LYMANRO #### [facility] [address] [place], [place] [address] Dr. Ashlie Hills Color (U) DK. ORANGE Abnormal YELLOW [facility] Comment on above: Performed By: #### E NURA, UMICRO #### [facility] [address] [place] [address] Dr. Ashlie HOBBS A micrscopic examination will be performed if indicated. Normal [facility] Comment on above: Performed By: #### E RUR, UMICRO #### [facility] Laboratory [address] [place] [address] Dr. Ashlie Hills Glucose Ql (U) 250 mg/dl Abnormal NEGATIVE [facility] Comment on above: Performed By: #### E RUR, UMICRO #### [facility] Laboratory [address] [place] [address] Dr. Ashlie Hills Hemoglobin Ql (U) Negative Normal NEGATIVE [facility] Comment on above: Performed By: #### E RUMahnaz, UMICRO #### [facility] Laboratory [address] [place] [address] Dr. Ashlie Hills Ketones Ql (U) Negative Normal NEGATIVE [facility] Comment on above: Performed By: #### Tracey LYMAN UMICRO #### [facility] Laboratory [address] [place] [address] Dr. Ashlie Hills LEUKOCYTES Negative Normal NEGATIVE [facility] Comment on above: Performed By: #### Tracey LYMAN, UMICRO #### [facility] Laboratory [address] [place] [address] Dr. Ashlie Hills Nitrite Ql (U) Negative Normal NEGATIVE [facility] Comment on above: Performed By: #### Tracey RUMahnaz, UMICRO #### [facility] Laboratory [address] [place] [address] Dr. Ashlie Hills pH (U) 5.0 [pH] Normal 5-9 [facility] Comment on above: Performed By: #### Tracey LYMAN, UMICRO #### [facility] Laboratory [address] [place] [address] Dr. Ashlie Hills Protein (U) [Mass/Vol] 100 mg/dL Abnormal NEGAT YURY/ TRACE [facility] Comment on above: Performed By: #### E NURA UMICRO #### [facility] Laboratory [address] [place] [address] Dr. Ashlie Hills SPEC GRAVITY >=1.030 Abnormal 1.005-<=1.025 [facility] Comment on above: Performed By: #### E MADELINE LYMANRO #### [facility] Laboratory [address] [place] [address] Dr. Ashlie Hills UR MICRO IND INDICATED Normal [facility] Comment on above: Performed By: #### MADELINE DIAZRO #### [facility] Laboratory [address] [place] [address] Dr. Ashlie Hills Urobilinogen Qn (U) 1.0 {Little'U}/dL Normal 0.2 - 1. 0 [facility] Comment on above: Performed By: #### Tracey LYMAN HARRIETRO #### [facility] Laboratory [address] [place] [address] Dr. Ashlie Hills PROF CHEM 8 (BAS METB)on Anion gap [Moles/Vol] 12.1 mmol/L Normal [facility] Comment on above: Performed By: #### I NFLUAB #### [facility] Laboratory [address] [place] [address] Dr. Ashlie Hills Calcium [Mass/Vol] 9.0 mg/dL Normal 8.5-10.1 [facility] [place] Comment on above: Performed By: #### I NFLUAB #### [facility] Laboratory [address] [place] [address] Dr. Ashlie Hills Chloride [Moles/Vol] 101 mmol/L Normal 98-107 [facility] Comment on above: Performed By: #### I NFLUAB #### [facility] Laboratory [address] [place] [address] Dr. Ashlie Hills CO2 [Moles/Vol] 29.1 mmol/L Normal 21.0-32.0 [facility] Comment on above: Performed By: #### I NFLUAB #### [facility] Laboratory [address] [place] [address] Dr. Ashlie Hills Creatinine [Mass/Vol] 0.86 mg/dL Normal 0.55-1.02 [facility] Comment on above: Performed By: #### I NFLUAB #### [facility] Laboratory [address] [address] [address] Ashlie Hills EGFR-AF MOZAMBICAN >60 Normal >=60 [facility] Comment on above: Performed By: #### I NFLUAB #### [facility] Laboratory [address] [address] [address] Ashlie Hills EGFR-NON AF MOZAMBICAN >60 Normal >=60 [facility] Comment on above: Performed By: #### I NFLUAB #### [facility] Laboratory [address] [address] [address] Ashlie Hills Glucose [Mass/Vol] 236 mg/dL Critically high 74-106 T [facility] Comment on above: Performed By: #### I NFLUAB #### [facility] Laboratory [address] [address] [address] Ashlie Hills Potassium [Moles/Vol] 4.2 mmol/L Normal 3.5-5.1 [facility] Comment on above: Performed By: #### I NFLUAB #### [facility] Laboratory [address] [address] [address] Ashlie Hills Sodium [Moles/Vol] 138 mmol/L Normal 136-145 [facility] [place] Comment on above: Performed By: #### I NFLUAB #### [facility] Laboratory [address] [address] [address] Ashlie Hills Urea nitrogen [Mass/Vol] 11.0 mg/dL Normal 7.0-18.0 [facility] Comment on above: Performed By: #### I NFLUAB #### [facility] Laboratory [address] [address] [address] Ashlie Hills Urea nitrogen/Creatinine [Mass ratio] 12.8 mg/mg Normal [facility] Comment on above: Performed By: #### I NFLUAB #### [facility] Laboratory [address] [address] [address] Ashlie Hills URINE MICROSCOPIC ONLYon BACTERIA SMALL Abnormal NONE SEEN [facility] Comment on above: Performed By: #### E JIMMYR, UMICRO #### [facility] Laboratory [address] [place] [address] Dr. Ashlie Hills Bacteria identified Cx Nom (U) INDICATED Normal [facility] Comment on above: Performed By: #### E RUR, UMICRO #### [facility] Laboratory [address] [place] [address] Dr. Ashlie Hills CAST NONE SEEN Normal NONE SEEN [facility] Comment on above: Performed By: #### E RUR, UMICRO #### [facility] Laboratory [address] [place] [address] Dr. Ashlie Hills Crystals LM Nom (Urine sed) NONE SEEN Normal NONE SEEN [facility] Comment on above: Performed By: #### E RUR, UMICRO #### [facility] Laboratory [address] [place] [address] Dr. Ashlie Hills Epithelial cells LM Ql (Urine sed) MODERATE Abnormal NONE SEEN /RARE [facility] Comment on above: Performed By: #### Tracey LYMAN, UMICRO #### [facility] Laboratory [address] [place] [address] Dr. Ashlie Hills MUCOUS NONE SEEN Normal NONE SEEN [facility] Comment on above: Performed By: #### Tracey LYMAN, UMICRO #### [facility] Laboratory [address] [place] [address] Dr. Ashlie Hills RBC 0-2 Normal 0-2 [facility] Comment on above: Performed By: #### Tracey LYMAN UMICRO #### [facility] Laboratory [address] [place] [address] Dr. Ashlie Hills WBC 0-2 Abnormal NONE SEEN [facility] Comment on above: Performed By: #### Tracey LYMAN UMICRO #### [facility] Laboratory [address] [place] [address] Dr. Ashlie Hills YEAST PRESENT Abnormal NONE SEEN [facility] Comment on above: Performed By: #### Tracey RUMahnaz, UMICRO #### [facility] Laboratory [address] [place] [address] Dr. Ashlie Hills HIP RIGHT 1 OR 2 VWS WITH PE LVISon 07-20-2020 HIP RIGHT 1 OR 2 VWS WITH PELVIS [facility] Department of Radiology [address] [place] [address] Patient Name: MITZI MACIAS : [...] MRI. Electronically signed: Pipo Acevedo. Transcribed by: [email or web address], User Resident: Electronically Signed by: PIPO ACEVEDO @ 07/20/2020 03:45 PM Normal [facility] Comment on above: Order Comment: evalu ate Vital Signs Date Time Vital Sign Value Performing Clinician Facility 01-29-2025 09:48-0400 Body height 170.2 cm Rain Souza MD Work Phone: [facility] 01-29-2025 09:48-0400 Body mass index (BMI) [Ratio] 56.38 kg/m2 Rain Souza MD Work Phone: [facility] 01-29-2025 09:48-0400 Body weight 163.29 kg Rain Souza MD Work Phone: [facility] 01-29-2025 09:48-0400 Diastolic blood pressure 70 mm[Hg] Rain Souza MD Work Phone: [facility] 01-29-2025 09:48-0400 Heart rate 72 /min Rain Souza MD Work Phone: [facility] 01-29-2025 09:48-0400 Respiratory rate 16 /min Rain Souza MD Work Phone: [facility] 01-29-2025 09:48-0400 SaO2% (BldA) [Mass fraction] 84 % Rain Souza MD Work Phone: [facility] 01-29-2025 09:48-0400 Systolic blood pressure 130 mm[Hg] Rain Souza MD Work Phone: [facility] 01-26-2025 18:11-0400 Body mass index (BMI) [Ratio] 58.64 kg/m2 Mckayla Blas CLAIM REVIEW MEDICAL DIRECTOR Work Phone: [facility] 01-26-2025 18:11-0400 Body temperature 98.49 [degF] Mckayla Blas CLAIM REVIEW MEDICAL DIRECTOR Work Phone: [facility] 01-26-2025 18:11-0400 Body weight 169.83 kg Mckayla Blas CLAIM REVIEW MEDICAL DIRECTOR Work Phone: [facility] 01-26-2025 18:11-0400 Diastolic blood pressure 82 mm[Hg] Mckayla Blas CLAIM REVIEW MEDICAL DIRECTOR Work Phone: [facility] 01-26-2025 18:11-0400 Heart rate 81 /min Mckayla Aichholz CLAIM REVIEW MEDICAL DIRECTOR Work Phone: [facility] 01-26-2025 18:11-0400 Respiratory rate 20 /min Mckayla Aichholz CLAIM REVIEW MEDICAL DIRECTOR Work Phone: [facility] 01-26-2025 18:11-0400 SaO2% (BldA) [Mass fraction] 90 % Mckayla Aichholz CLAIM REVIEW MEDICAL DIRECTOR Work Phone: [facility] 01-26-2025 18:11-0400 Systolic blood pressure 126 mm[Hg] Mckayla Aichholz CLAIM REVIEW MEDICAL DIRECTOR Work Phone: [facility] 12-09-2024 10:19-0400 Body temperature 98.01 [degF] Mckayla Aichholz CLAIM REVIEW MEDICAL DIRECTOR Work Phone: [facility] 12-09-2024 10:19-0400 Diastolic blood pressure 76 mm[Hg] Mckayla Aichholz CLAIM REVIEW MEDICAL DIRECTOR Work Phone: [facility] 12-09-2024 10:19-0400 Heart rate 71 /min Mckayla Aichholz CLAIM REVIEW MEDICAL DIRECTOR Work Phone: [facility] 12-09-2024 10:19-0400 Respiratory rate 20 /min Mckayla Aichholz CLAIM REVIEW MEDICAL DIRECTOR Work Phone: [facility] 12-09-2024 10:19-0400 SaO2% (BldA) [Mass fraction] 88 % Mckayla Aichholz CLAIM REVIEW MEDICAL DIRECTOR Work Phone: [facility] 12-09-2024 10:19-0400 Systolic blood pressure 150 mm[Hg] Mckayla Aichholz CLAIM REVIEW MEDICAL DIRECTOR Work Phone: [facility] 10-27-2024 14:11-0400 Body height 170.2 cm Mckayla Aichholz CLAIM REVIEW MEDICAL DIRECTOR Work Phone: [facility] 10-27-2024 14:11-0400 Body mass index (BMI) [Ratio] 56.51 kg/m2 Mckayla Aichholz CLAIM REVIEW MEDICAL DIRECTOR Work Phone: [facility] 10-27-2024 14:11-0400 Body temperature 98.71 [degF] Mckayla Blas CLAIM REVIEW MEDICAL DIRECTOR Work Phone: [facility] 10-27-2024 14:11-0400 Body weight 163.66 kg Mckayla Blas CLAIM REVIEW MEDICAL DIRECTOR Work Phone: [facility] 10-27-2024 14:11-0400 Diastolic blood pressure 74 mm[Hg] Mckayla Blas CLAIM REVIEW MEDICAL DIRECTOR Work Phone: [facility] 10-27-2024 14:11-0400 Heart rate 75 /min Mckayla Blas CLAIM REVIEW MEDICAL DIRECTOR Work Phone: [facility] 10-27-2024 14:11-0400 Respiratory rate 18 /min Mckayla Blas CLAIM REVIEW MEDICAL DIRECTOR Work Phone: [facility] 10-27-2024 14:11-0400 SaO2% (BldA) [Mass fraction] 90 % Mckayla Blas CLAIM REVIEW MEDICAL DIRECTOR Work Phone: [facility] 10-27-2024 14:11-0400 Systolic blood pressure 132 mm[Hg] Mckayla Blas CLAIM REVIEW MEDICAL DIRECTOR Work Phone: [facility] 10-08-2024 11:21-0400 Body height 170.2 cm Rain Souza MD Work Phone: [facility] 10-08-2024 11:21-0400 Body mass index (BMI) [Ratio] 55.91 kg/m2 Rain Souza MD Work Phone: [facility] 10-08-2024 11:21-0400 Body weight 161.93 kg Rain Souza MD Work Phone: [facility] 10-08-2024 11:21-0400 Diastolic blood pressure 70 mm[Hg] Rain Souza MD Work Phone: [facility] 10-08-2024 11:21-0400 Heart rate 70 /min Rain Souza MD Work Phone: [facility] 10-08-2024 11:21-0400 Respiratory rate 16 /min Rain Souza MD Work Phone: [facility] 10-08-2024 11:21-0400 SaO2% (BldA) [Mass fraction] 91 % Rain Souza MD Work Phone: [facility] 10-08-2024 11:21-0400 Systolic blood pressure 130 mm[Hg] Rain Souza MD Work Phone: [facility] 08-27-2024 17:44-0500 Body mass index (BMI) [Ratio] 57.31 kg/m2 Mckayla Aichholz CLAIM REVIEW MEDICAL DIRECTOR Work Phone: [facility] 08-27-2024 17:44-0500 Body temperature 98.01 [degF] Mckayla Aichholz CLAIM REVIEW MEDICAL DIRECTOR Work Phone: [facility] 08-27-2024 17:44-0500 Body weight 165.97 kg Mckayla Aichholz CLAIM REVIEW MEDICAL DIRECTOR Work Phone: [facility] 08-27-2024 17:44-0500 Diastolic blood pressure 76 mm[Hg] Mckayla Aichholz CLAIM REVIEW MEDICAL DIRECTOR Work Phone: [facility] 08-27-2024 17:44-0500 Heart rate 83 /min Mckayla Aichholz CLAIM REVIEW MEDICAL DIRECTOR Work Phone: [facility] 08-27-2024 17:44-0500 Respiratory rate 18 /min Mckayla Aichholz CLAIM REVIEW MEDICAL DIRECTOR Work Phone: [facility] 08-27-2024 17:44-0500 SaO2% (BldA) [Mass fraction] 91 % Mckayla Aichholz CLAIM REVIEW MEDICAL DIRECTOR Work Phone: [facility] 08-27-2024 17:44-0500 Systolic blood pressure 134 mm[Hg] Mckayla Aichholz CLAIM REVIEW MEDICAL DIRECTOR Work Phone: [facility] 06-11-2024 10:00-0500 Blood Pressure Location Elbert ARAUZ [facility] 06-11-2024 10:00-0500 Diastolic blood pressure 68 mm[Hg] Elbert ARAUZ [facility] 06-11-2024 10:00-0500 Heart rate 76 /min Elbert ARAUZ [facility] 06-11-2024 10:00-0500 Systolic blood pressure 132 mm[Hg] Elbert ARAUZ [facility] 05-27-2024 10:20-0500 Body height 170.2 cm Rain Souza MD Work Phone: [facility] 05-27-2024 10:20-0500 Body mass index (BMI) [Ratio] 56.7 kg/m2 Rain Souza MD Work Phone: [facility] 05-27-2024 10:20-0500 Body weight 164.2 kg Rain Souza MD Work Phone: [facility] 05-27-2024 10:20-0500 Diastolic blood pressure 66 mm[Hg] Rain Souza MD Work Phone: [facility] 05-27-2024 10:20-0500 Heart rate 72 /min Rain Souza MD Work Phone: [facility] 05-27-2024 10:20-0500 Respiratory rate 16 /min Rain Souza MD Work Phone: [facility] 05-27-2024 10:20-0500 Systolic blood pressure 128 mm[Hg] Rain Suoza MD Work Phone: [facility] 04-14-2024 10:27-0400 Body height 165.1 cm Mckayla Blas NP Work Phone: [facility] 04-14-2024 10:27-0400 Body mass index (BMI) [Ratio] 61.01 kg/m2 Mckayla Blas NP Work Phone: [facility] 04-14-2024 10:27-0400 Body temperature 98.49 [degF] Mckayla Blas CLAIM REVIEW MEDICAL DIRECTOR Work Phone: [facility] 04-14-2024 10:27-0400 Body weight 166.29 kg Mckayla Blas CLAIM REVIEW MEDICAL DIRECTOR Work Phone: [facility] 04-14-2024 10:27-0400 Diastolic blood pressure 80 mm[Hg] Mckayla Blas CLAIM REVIEW MEDICAL DIRECTOR Work Phone: [facility] 04-14-2024 10:27-0400 Heart rate 77 /min Mckaylajuvenal Rosenbergz CLAIM REVIEW MEDICAL DIRECTOR Work Phone: [facility] 04-14-2024 10:27-0400 Respiratory rate 19 /min Mckayla Blas CLAIM REVIEW MEDICAL DIRECTOR Work Phone: [facility] 04-14-2024 10:27-0400 SaO2% (BldA) [Mass fraction] 92 % Mckayla Blas CLAIM REVIEW MEDICAL DIRECTOR Work Phone: [facility] 04-14-2024 10:27-0400 Systolic blood pressure 116 mm[Hg] Mckayla Blas CLAIM REVIEW MEDICAL DIRECTOR Work Phone: [facility] 03-08-2022 15:00-0400 Body height 170.18 cm Stephanie Tico [facility] Other 03-08-2022 15:00-0400 Body temperature 97.6 [degF] Stephanie Tico Other [facility] Other 03-08-2022 15:00-0400 Diastolic blood pressure 72 mm[Hg] Stephanie Tico Other [facility] Other 03-08-2022 15:00-0400 Respiratory rate 20 /min Stephanie Tico Other [facility] Other 03-08-2022 15:00-0400 SaO2% (BldA) [Mass fraction] 91 % Stephanie Tico Other [facility] Other 03-08-2022 15:00-0400 Systolic blood pressure 131 mm[Hg] Stephanie Tico Other [facility] Other 02-20-2022 09:20-0400 Body height 170.18 cm Stephanie Tico Other [facility] Other 02-20-2022 09:20-0400 Body temperature 96.5 [degF] Stephanie Tico Other [facility] Other 02-20-2022 09:20-0400 Diastolic blood pressure 69 mm[Hg] Stephanie Tico Other [facility] Other 02-20-2022 09:20-0400 Respiratory rate 20 /min Stephanie Tico Other [facility] Other 02-20-2022 09:20-0400 SaO2% (BldA) [Mass fraction] 91 % Stephanie Tico Other [facility] Other 02-20-2022 09:20-0400 Systolic blood pressure 129 mm[Hg] Stephanie Tico Other [facility] Other 02-06-2022 10:24-0400 Blood Pressure Location Elbert ARAUZ [facility] 02-06-2022 10:24-0400 Diastolic blood pressure 76 mm[Hg] Elbert ARAUZ [facility] 02-06-2022 10:24-0400 Heart rate 70 /min Elbert ARAUZ [facility] 02-06-2022 10:24-0400 Respiratory rate 16 /min Elbert ARAUZ [facility] 02-06-2022 10:24-0400 Systolic blood pressure 134 mm[Hg] Elbert ARAUZ [facility] Encounters Encounter Date Encounter Type Care Provider Facility Start: 03-12-2025 ambulatory Flynn BAEZM F acility:[facility] Start: 03-11-2025 End: 03-11-2025 ambulatory Flynn BAEZM Facility:[facility] Start: 03-09-2025 End: 03-09-2025 Refill Mckayla Blas NP Work Phone: [facility] Comment on above: Tobacco user; Encounter for [...] minutes Rain Souza MD Work Phone: [facility] Comment on above: Encounter for dietar y consultation (Primary Dx); Type 2 diabetes mellitus with hyperglycemia, with long-term current use of insulin (HCC); Vitamin D deficiency; Primary hypertension ; Insulin long-term use (HCC); Hyperlipemia, mixed ; Microalbuminuria; Class 3 severe obesity due to excess calories with serious comorbidity and body mass index (BMI) of 50.0 to 59.9 in adult ([facility]) Start: 01-26-2025 End: 01-26-2025 ambulatory MCKAYLA BLAS Not Available Start: 01-26-2025 End: 01-26-2025 Patient encounter procedure Mckayla Blas CLAIM REVIEW MEDICAL DIRECTOR Work Phone: [facility] Comment on above: Encounter for [...] type (HCC); Moderate persistent asthma without complication ([facility]); Insomnia; Non-seasonal allergic rhinitis, unspecified trigger; Type 2 diabetes mellitus with unspecified complications (HCC); Anxiety and depression ; Antibiotic-induced yeast infection; Chronic obstructive pulmonary disease, unspecified (HCC); Hyperlipidemia, unspecified ; Vaginal yeast infection; Morbid (severe) obesity due to excess calories ([facility]) Start: 01-06-2025 End: 01-06-2025 ambulatory [facility] Start: 12-18-2024 End: 12-19-2024 Refill Mckayla Blas CLAIM REVIEW MEDICAL DIRECTOR Work Phone: [facility] Comment on above: Hyperlipidemia, unsp ecified ; Tobacco user; Encounter for smoking cessation counseling Start: 12-09-2024 End: 12-09-2024 Bamboo flowsheet Mckayla Blas CLAIM REVIEW MEDICAL DIRECTOR Work Phone: [facility] Start: 12-09-2024 End: 12-09-2024 Bamboo flowsheet Mckayla Blas CLAIM REVIEW MEDICAL DIRECTOR Work Phone: [facility] Start: 12-09-2024 End: 12-09-2024 ambulatory MCKAYLA AICHHOLZ Not Available Start: 12-09-2024 End: 12-09-2024 Office outpatient visit 25 minutes Mckayla Blas CLAIM REVIEW MEDICAL DIRECTOR Work Phone: [facility] Comment on above: Cellulitis of [...] Office outpatient visit 25 minutes Mckayla Blas CLAIM REVIEW MEDICAL DIRECTOR Work Phone: [facility] Comment on above: Primary [...] 10-21-2024 Refill Mckayla Blas NP Work Phone: [facility] Comment on above: Chronic obstructive pulmonary disease, unspecified Start: 10-08-2024 End: 10-08-2024 Clinisync Result Encounter Mckayla Patriciadallin SCHAEFER Work Phone: [facility] External Department Unsolicited Start: 10-08-2024 End: 10-08-2024 Clinisync Result Encounter Mckayla Patriciadallin SCHAEFER Work Phone: [facility] External Department Unsolicited Start: 10-08-2024 End: [...] minutes Mckayla Blas NP Work Phone: [facility] Comment on above: Anxiety and depressi [...] complication, with long-term current use of insulin ([facility]); Tobacco user; Mixed hyperlipidemia ([facility]); Gout, unspecified cause, unspecified chronicity, unspecified site; Vitamin deficiency; Gastro-esophageal reflux disease without esophagitis; Edema, unspecified; Edema; Hyperlipidemia, unspecified (CMS/HCC); Encounter for smoking cessation counseling; Venous ulcer of right leg ([facility]); Antibiotic-induced yeast infection Start: 08-27-2024 End: 08-27-2024 ambulatory MCKAYLA BLAS Not Available Start: 08-27-2024 End: 08-27-2024 Clinisync Result Encounter Generic External Data Provider [facility] External Department Unsolicited Start: 08-27-2024 End: 08-27-2024 Clinisync Result Encounter Generic External Data Provider [facility] External Department Unsolicited Start: 08-08-2024 End: 08-08-2024 ambulatory [facility] Start: 07-17-2024 End: 07-17-2024 Refill Mckayla Blas CLAIM REVIEW MEDICAL DIRECTOR Work Phone: [facility] Start: 07-14-2024 End: 07-14-2024 Office outpatient visit 25 minutes Mckayla Blas NP Work Phone: [facility] Comment on above: Primary hypertension ([facility]/HCC) (Primary Dx); Diabetic polyneuropathy associated with type 2 diabetes mellitus ([facility]); Pulmonary emphysema, unspecified emphysema type ([facility]); Critical limb ischemia of right lower extremity ([facility]); PAD (peripheral artery disease) ([facility]); Gastroesophageal reflux disease, unspecified whether esophagitis present; Bilateral lower extremity edema; Venous ulcer of right leg ([facility]/HCC); Type 2 diabetes mellitus with complication, with long-term current use of insulin ([facility]); Tobacco user; Encounter for smoking cessation counseling; Kidney stone; Adrenal mass 1 cm to 4 cm in diameter ([facility]/HCC); Radiculopathy, lumbar region; Non-seasonal allergic rhinitis, unspecified trigger; Type 2 diabetes mellitus with unspecified complications ([facility]) Start: 07-14-2024 End: 07-14-2024 ambulatory MCKAYLA BLAS Not Available Start: 07-05-2024 End: 07-07-2024 Refill Mckayla Harshaddallin CLAIM REVIEW MEDICAL DIRECTOR Work Phone: [facility] Comment on above: Bilateral lower extr emity edema Start: 06-11-2024 ambulatory Elbert ARAUZ [place] ty:SHEA [place] Start: 06-11-2024 End: 06-11-2024 Patient encounter procedure Elbert ARAUZ [facility] [place] Start: 05-27-2024 End: 05-27-2024 Bamboo flowsheet Rain Souza MD Work Phone: [facility] Start: 05-27-2024 End: 05-27-2024 Bamboo flowsheet Rain Souza MD Work Phone: [facility] Start: 05-27-2024 End: 05-27-2024 ambulatory RAIN SOUZA Not Available Start: 05-27-2024 End: 05-27-2024 Office outpatient visit 25 minutes Rain Souza MD Work Phone: [facility] Comment on above: Type 2 diabetes asiya itus with hyperglycemia, with long-term current use of insulin ([facility]) (Primary Dx); Encounter for dietary consultation; Vitamin D deficiency; Primary hypertension ([facility]); Insulin long-term use ([facility]); Hyperlipemia, mixed (CMS/[facility]); Microalbuminuria; Class 3 severe obesity [...] 04-14-2024 End: 04-14-2024 Bamboo flowsheet Mckayla Aichholz CLAIM REVIEW MEDICAL DIRECTOR Work Phone: [facility] Start: 04-14-2024 End: 04-14-2024 Bamboo flowsheet Mckayla Aichholz CLAIM REVIEW MEDICAL DIRECTOR Work Phone: [facility] Start: 04-14-2024 End: 04-14-2024 Office outpatient visit 25 minutes Mckayla Chetz CLAIM REVIEW MEDICAL DIRECTOR Work Phone: [facility] Comment on above: Primary hypertension [...] Start: 04-05-2024 End: 04-06-2024 Refill Mckayla Aichholz CLAIM REVIEW MEDICAL DIRECTOR Work Phone: [facility] Comment on above: Hyperlipidemia, unsp ecified (CMS/HCC); Bilateral lower extremity edema Vitamin D deficiency , unspecified Start: 01-17-2024 Patient encounter procedure Rain Souza MD Work Phone: [facility] Start: 08-17-2023 Refill Mckayla Aichholz CLAIM REVIEW MEDICAL DIRECTOR Work Phone: [facility] Comment on above: Vaginal yeast infect ion (Primary Dx) Start: 08-14-2023 Refill Mckayla Aichholz CLAIM REVIEW MEDICAL DIRECTOR Work Phone: [facility] Comment on above: Type 2 [...] encounter procedure SARAH VEGA [facility] Start: 10-05-2022 End: 10-05-2022 ambulatory MARIANO BLAKE [...] 03-08-2022 End: 03-08-2022 ambulatory Stephanie Tico [facility] Other Start: 03-08-2022 Office outpatient vi sit 15 minutes Stephanie Tico [facility] Start: 03-03-2022 End: 03-04-2022 ambulatory SAYDA BLAS Facility:[facility] Start: 02-20-2022 End: 02-20-2022 ambulatory Stephanie Tico [facility] Other Start: 02-20-2022 Office outpatient ne w 45 minutes Stephanie Tico [facility] Start: 02-06-2022 End: 02-06-2022 Patient encounter procedure Elbert ARAUZ [facility] Start: 01-19-2022 End: 01-20-2022 ambulatory GILSONA RODRIGUEZIS . Facility: Start: 12-24-2021 End: 12-24-2021 ambulatory OLE RAMIREZ Facility: Start: 08-26-2020 End: 09-10-2020 Patient encounter procedure MARY GABINOLOS Facility:[facility] Start: 10-30-2019 End: 10-30-2019 Emergency department patient visit [facility] Start: 10-30-2019 End: 10-30-2019 Emergency department patient visit [facility] Start: 11-02-2016 Preoperative state Stephanie Tico [facility] Other Procedures Date Procedure Procedure Detail Performing [...] Rain Souza MD Work Phone: Start: 10-08-2024 [facility] UA (CLEAN/CATCH) MICROSCOPIC IF INDICATE Mckayla Blas NP Work Phone: Start: 08-27-2024 ALL CBC WITH AUTO DIFF Generic External Data Provider Start: 05-27-2024 Gluc bld gluc mntr d ev cleared fda spec home use Rain Souza MD Work Phone: Start: 05-12-2024 [facility] CREATININE Generic External Data Provider Start: 12-14-2023 Mammography Rain urena MD Work Phone: Start: 11-22-2022 Mammography Mckayla clifford CLAIM REVIEW MEDICAL DIRECTOR Work Phone: Start: 10-08-2015 Microscopic observat ion [Identifier] in Cervix by Cyto stain Mckayla Blas CLAIM REVIEW MEDICAL DIRECTOR Work Phone: H/O: hysterectomy Elbert TIKA LARA Laparoscopic cholecystectomy Elbert ARAUZ Operative procedure on foot Elbert ARAUZ Plan of Treatment Date Care Activity Detail Author Start: 02-01-2026 End: 02-01-2026 Patient encounter procedure [facility] Start: 01-26-2026 Medicare Annual Wellness (AWV) Medicare Annual Wellness (AWV) [facility] Start: 10-08-2025 Urine screening for protein Diabetes: Urine Protein Screening [facility] Start: 08-03-2025 Screening for malignant neoplasm of colon [facility] Start: 07-14-2025 Glaucoma screening Diabetes: R etinopathy Screening [facility] Start: 05-28-2025 End: 05-28-2025 Patient encounter procedure [facility] Start: 05-13-2025 Glaucoma screening Diabetes: R etinopathy Screening [facility] Start: 05-01-2025 Hemoglobin A1c measurement Diabetes: Hemoglobin A1C [facility] Start: 04-29-2025 End: 04-29-2025 Patient encounter procedure [facility] Start: 03-09-2025 Influenza vaccination [facility] Start: 01-28-2025 End: 01-28-2025 Patient encounter procedure 01/28/2025 10:50 AM EDT Office Visit [facility] [address] [place] [address] Rain Souza MD [address] [place] [address] [facility] Start: 01-26-2025 End: 01-26-2025 Patient encounter procedure 01/26/2025 6:00 PM EDT [facility] [address] [place] [phone] Mckayla Blas NP [address] [place] [address] [facility] Start: 01-16-2025 Medicare Annual Wellness (AWV) Medicare Annual Wellness (AWV) [facility] Start: 01-07-2025 Hemoglobin A1c measurement Diabetes: Hemoglobin A1C [facility] Start: 12-15-2024 End: 12-27-2025 MG Breast - bilateral Screening Bilateral screening mammogram Imaging Routine Encounter for screening mammogram for malignant neoplasm of breast Expected: 12/15/2024 (Approximate), Expires: 12/27/2025 [facility] Work Phone: Comment on above: Expected: 12/15/2024 (Approximate), Expires: 12/27/2025 Start: 12-13-2024 Screening for malignant neoplasm of breast Mammogram [facility] Start: 11-11-2024 Urine screening for protein Diabetes: Urine Protein Screening [facility] Start: 10-27-2024 End: 10-27-2024 Patient encounter procedure 10/27/2024 2:00 PM EDT [facility] [address] [place] [phone] Mckayla Blas, SILVANO [address] [place] [phone] [facility] Start: 10-08-2024 End: 10-08-2024 Patient encounter procedure 10/08/2024 11:20 AM EDT Office Visit [facility] [address] [place] [address] Rain Souza MD [address] [place] [address] [facility] Start: 08-27-2024 End: 08-27-2024 Patient encounter procedure 08/27/2024 5:30 PM EST Office Visit [facility] [address] [place] [address] Mckayla Blas, CLAIM REVIEW MEDICAL DIRECTOR [address] [place] [address] [facility] Start: 08-27-2024 End: 08-27-2025 25-hydroxyvitamin D3 [Mass/volume] in Serum or Plasma Vitamin D 25 hydroxy Lab Routine Vitamin deficiency Expected: 08/27/2024 (Approximate), Expires: 08/27/2025 [facility] Comment on above: Expected: 08/27/2024 (Approximate), Expires: 08/27/2025 Start: 08-27-2024 Hemoglobin A1c measurement Diabetes: Hemoglobin A1C [facility] Start: 08-27-2024 End: 08-27-2025 Hepatic function 2000 panel - Serum or Plasma Hepatic function panel Lab Routine Hyperlipidemia, unspecified (CMS/HCC) Expected: 08/27/2024 (Approximate), Expires: 08/27/2025 [facility] Comment on above: Expected: 08/27/2024 (Approximate), Expires: 08/27/2025 Start: 08-27-2024 End: 08-27-2025 Lipid 1996 panel - Serum or Plasma Lipid panel Lab Routine Mixed hyperlipidemia (CMS/HCC) Expected: 08/27/2024 (Approximate), Expires: 08/27/2025 [facility] Work Phone: Comment on above: Expected: 08/27/2024 (Approximate), Expires: 08/27/2025 Start: 08-27-2024 End: 08-27-2025 Microalbumin/Creatini ne panel in random Urine Microalbumin / creatinine, urine ratio Lab Routine Primary hypertension ([facility]/HCC) Type 2 diabetes mellitus with complication, with long-term current use of insulin ([facility]/HCC) Expected: 08/27/2024 (Approximate), Expires: 08/27/2025 [facility] Comment on above: Expected: 08/27/2024 (Approximate), Expires: 08/27/2025 Start: 08-27-2024 End: 08-27-2025 Urate [Mass/volume] in Serum or Plasma Uric acid Lab Routine Gout, unspecified cause, unspecified chronicity, unspecified site Expected: 08/27/2024 (Approximate), Expires: 08/27/2025 [facility] Comment on above: Expected: 08/27/2024 (Approximate), Expires: 08/27/2025 Start: 08-27-2024 End: 08-27-2025 Urinalysis complete panel - Urine Urinalysis with reflex microscopic (clean catch) Lab Routine Primary hypertension ([facility]) Type 2 diabetes mellitus with complication, with long-term current use of insulin ([facility]) Tobacco user Gout, unspecified cause, unspecified chronicity, unspecified site Expected: 08/27/2024 (Approximate), Expires: 08/27/2025 [facility] Comment on above: Expected: 08/27/2024 (Approximate), Expires: 08/27/2025 Start: 08-26-2024 End: 08-26-2024 Patient encounter procedure 08/26/2024 10:30 AM EST Office Visit [facility] [address] [place] [address] Rain Souza MD [address] [place] [address] [facility] Start: 07-14-2024 End: 07-14-2024 Patient encounter procedure 07/14/2024 6:30 PM EST Office Visit [facility] [address] [place] [address] Mckayla Blas, SILVANO [address] [place] [address] [facility] Start: 07-14-2024 End: 07-14-2024 Patient encounter procedure 07/14/2024 10:10 AM EST Office Visit [facility] [address] [place] [address] Rain Souza MD [address] [place] [address] [facility] Start: 06-06-2024 Influenza vaccination Influenza Vacc ine (#1) [facility] Comment on above: Postponed from 03/09 (Patient Refused) Start: 05-27-2024 End: 05-27-2024 Patient encounter procedure 05/27/2024 9:50 AM EST Office Visit [facility] [address] [place] [address] Rain Souza MD [address] [place] [address] [facility] Start: 05-17-2024 Hemoglobin A1c measurement Diabetes: Hemoglobin A1C [facility] Start: 05-15-2024 End: 05-15-2024 Chart abstracting 05/15/2024 Abstract [facility] [address] [place] [address] Rain Souza MD [address] [place] [address] [facility] Start: 05-15-2024 End: 05-15-2024 Patient encounter procedure 05/15/2024 11:20 AM EST Office Visit [facility] [address] [place] [address] Rain Souza MD [address] [place] [address] [facility] Start: 04-17-2024 End: 04-17-2024 Patient encounter procedure 04/17/2024 3:40 PM EDT Office Visit [facility] [address] [place] [address] Mckayla Blas, CLAIM REVIEW MEDICAL DIRECTOR [address] [place] [address] [facility] Start: 04-14-2024 End: 04-14-2024 Patient encounter procedure 04/14/2024 11:00 AM EDT Office Visit [facility] [address] [place] [phone] Mckayla Blas, SILVANO [address] [place] [phone] Arrived [facility] Comment on above: Arrived Start: 03-09-2024 Influenza vaccination Influenza Vacc ine (#1) [facility] Start: 02-19-2024 Hemoglobin A1c measurement Diabetes: Hemoglobin A1C [facility] Start: 11-24-2023 Urine screening for protein Diabetes: Urine Protein Screening [facility] Start: 11-23-2023 Screening for malignant neoplasm of breast Mammogram [facility] Start: 10-15-2023 End: 10-15-2023 Patient encounter procedure 10/15/2023 4:30 PM EDT Office Visit [facility] [address] [place] [phone] Mckayla Blas, CLAIM REVIEW MEDICAL DIRECTOR [address] [place] [address] [facility] Start: 08-09-2023 Hemoglobin A1c measurement Diabetes: Hemoglobin A1C [facility] Start: 05-27-2021 Glaucoma screening Diabetes: R etinopathy Screening [facility] Start: 03-09-2020 Influenza vaccination Flu vacc ine (Season Ended) [place], [place] Start: 10-07-2018 Screening for malignant neoplasm of cervix [facility] Start: 2010 Lipid panel Lipid screen [place], [place] Start: 2000 Screening for malignant neoplasm of cervix HPV/Cotest [facility] Start: 1991 Screening for malignant neoplasm of cervix Cervical cancer screen [place], [place] Start: 1989 DTaP/Tdap/Td vaccine (1 - Tdap) DTaP/Tdap/Td vaccine (1 - Tdap) [place], [place] Start: 1985 HIV screening HIV screen [place], [place] Start: 1970 Medicare Annual Wellness (AWV) Medicare Annual Wellness (AWV) [facility] Start: 1970 Screening for malignant neoplasm of colon [facility] BLOOD CULTURE 1 BLOOD CULTURE 1 Lab Routine 12/04/2024 4:44 PM EDT [facility] BLOOD CULTURE 2 BLOOD CULTURE 2 Lab Routine 12/04/2024 5:28 PM EDT [facility] Immunizations Immunization Date Immunization Notes Care Provider Judie [facility] 05-18-2023 influenza, injectabl e, quadrivalent, contains preservative Mckayla Blas NP Work Phone: [facility] 05-18-2023 influenza virus vacc ine, unspecified formulation Rain Souza MD Work Phone: [facility] 07-19-2021 SARS-CoV-2 (COVID-19 ) mRNA BNT-162b2 bjornx SARAH VEGA [facility] 10-28-2020 SARS-CoV-2 (COVID-19 ) mRNA BNT-162b2 bjornx SARAH VEGA [facility] 10-08-2020 SARS-CoV-2 (COVID-19 ) mRNA BNT-162b2 vax SARAH VEGA [facility] 04-16-2017 influenza virus vacc ine, H5N1, A/ (national stockpile) Mckayla Blas CLAIM REVIEW MEDICAL DIRECTOR Work Phone: [facility] 04-16-2017 influenza virus vacc ine, unspecified formulation Rain Souza MD Work Phone: [facility] 04-16-2017 influenza, unspecifi ed formulation Elbert ARAUZ [facility] 04-16-2017 pneumococcal polysaccharide vaccine, 23 valent Rain Souza MD Work Phone: [facility] 05-10-2016 influenza virus vacc ine, H5N1, A/ (national stockpile) Mckayla Blas CLAIM REVIEW MEDICAL DIRECTOR Work Phone: [facility] 05-10-2016 influenza virus vacc ine, unspecified formulation Rain Souza MD Work Phone: [facility] 05-10-2016 influenza, unspecifi ed formulation Elbert ARAUZ [facility] 05-02-2013 influenza virus vacc ine, whole virus Rain Souza MD Work Phone: [facility] 05-02-2013 influenza, injectabl e, quadrivalent, contains preservative Mckayla Blas CLAIM REVIEW MEDICAL DIRECTOR Work Phone: [facility] 05-02-2013 influenza, whole Elbert ARAMBULA [facility] 01-29-1998 measles, mumps and rubella virus vaccine Rain Souza MD Work Phone: [facility] Payers Date Payer Category Payer Unknown [id number] 2023 Medicare (Managed Care) [id number]. [id number] 2023 Private Health Insurance [id number] 2023 Medicare [id number] 2018 Medicaid MEDICAID [facility] [id number] 2018-Present [phone] [address] [place] [address] Medicaid [id number] 2013 Medicare [id number] .[id number] 1970 Unknown [id number] 2.16.840.1.327308.3.579.2.6 47 1970 Unknown [id number] 2.16.840.1.858708.3.579.2.5 93 1970 Unknown [id number] 2.16.840.1.828172.3.579.2.5 93 1970 Unknown [id number] 2.16.840.1.143365.3.579.2.5 93 1970 Unknown [id number] 2.16.840.1.287789.3.579.2.5 93 1970 Unknown [id number] 2.16.840.1.900078.3.579.2.5 93 1970 Unknown [id number] 2.16.840.1.732606.3.579.2.5 93 1970 Unknown [id number] 2.16.840.1.764348.3.579.2.5 93 1970 Unknown [id number] 2.16.840.1.965591.3.579.2.5 93 1970 Unknown [id number] 2.16.840.1.500004.3.579.2.5 93 1970 Unknown [id number] 2.16.840.1.454717.3.579.2.5 93 1970 Unknown [id number] 2.16.840.1.535519.3.579.2.5 93 1970 Unknown [id number] 2.16.840.1.767180.3.579.2.5 93 1970 Unknown [id number] 2.16.840.1.450495.3.579.2.5 93 1970 Unknown [id number] 2.16.840.1.870420.3.579.2.5 93 1970 Unknown [id number] 2.16.840.1.720558.3.579.2.5 93 1970 Unknown [id number] 2.16.840.1.362387.3.579.2.5 93 1970 Unknown [id number] 2.16.840.1.011074.3.579.2.5 93 1970 Unknown [id number] 2.16.840.1.861888.3.579.2.5 93 1970 Unknown [id number] 2.16.840.1.494771.3.579.2.5 93 1970 Unknown [id number] 2.16.840.1.945939.3.579.2.5 93 1970 Unknown [id number] 2.16.840.1.200456.3.579.2.5 93 1970 Unknown [id number] 2.16.840.1.899953.3.579.2.5 93 1970 Unknown [id number] 2.16.840.1.328635.3.579.2.7 27 1970 Unknown [id number] 2.16.840.1.407544.3.579.2.7 27 1970 Unknown [id number] 2.16.840.1.024637.3.579.2.1 259 1970 Unknown [id number] 2.16.840.1.086691.3.579.2.1 259 1970 Unknown [id number] 2.16.840.1.308983.3.579.2.1 259 1970 Unknown [id number] 2.16.840.1.345054.3.579.2.1 259 1970 Unknown [id number] 2.16.840.1.583256.3.579.2.1 259 1970 Unknown [id number] 2.16.840.1.730620.3.579.2.1 259 1970 Unknown [id number] 2.16.840.1.516572.3.579.2.1 259 1970 Unknown [id number] 2.16.840.1.293746.3.579.2.1 259 1970 Unknown [id number] 2.16.840.1.347045.3.579.2.1 259 1970 Unknown [id number] 2.16.840.1.460622.3.579.2.1 96 1970 Unknown [id number] 2.16.840.1.272880.3.579.2.1 96 1970 Unknown [id number] 2.16840.1.643578.3.579.2.1 96 1959 Medicaid [id number] 1959 Private Health Insurance [id number] 1959 Unknown [id number] 2.16.840.1.729882.19 Social History Date Type Detail Facility Start: 02-17-2014 End: 01-29-2025 Tobacco smoking status NHIS Current every day smoker [place], [place] Start: 02-17-1994 History of tobacco use Cigarette Smo ker [place] Start: 02-17-2014 End: 08-26-2024 Cigarettes smoked current (pack per day) - Reported [place] Start: 02-17-2014 Alcohol intake Current drinke r of alcohol (finding) [place] Start: 02-17-2014 Alcohol Comment Rare [place] Start: 1970 Sex Assigned At Not on file [place] Exposure to SARS-CoV -2 (event) Unable to assess [place] Start: 02-06-2022 Tobacco smoking status Smoker (findi ng) [facility] Start: 07-10-2023 End: 08-26-2024 Sex Assigned At Female [facility] Start: 11-15-2022 End: 06-11-2024 Tobacco smoking status Heavy tobacco smoker (finding) [facility] Start: 07-10-2023 End: 01-29-2025 Tobacco use and exposure Smokeless tobacco non-user [facility] Start: 07-10-2023 End: 01-29-2025 Alcohol intake Lifetime non-drinker (finding) [facility] Within the last year , have you been afraid of your partner or ex-partner? No [facility] Do you belong to any clubs or organizations such as mu-ism groups, unions, fraternal [...] Equipment Origin al Text Equipment Identifier Dates [id number] Start: 01-18-2024 USE TO TEST BLOO D SUGAR 4 TIMES DAILY [id number] Start: 07-07-2024 Functional Status Date Assessment Result Facility 01-26-2025 Patient Health [facility] ionnaire 2 item (PHQ-2) [Reported] [facility] 01-26-2025 Trouble falling or s taying asleep, or sleeping too much Not at all 01/26/2025 4:13 PM EDT Mychart, Generic Not at all [facility] 01-26-2025 Feeling tired or hav ing little energy Not at all 01/26/2025 4:13 PM EDT Mychart, Generic Not at all [facility] 01-26-2025 Poor appetite or overeating Not at all 01/26/2025 4:13 PM EDT Mychart, Generic Not at all [facility] 01-26-2025 Feeling bad about yourself-or that you are a failure or have let yourself or your family down Not at all 01/26/2025 4:13 PM EDT Mychart, Generic Not at all [facility] 01-26-2025 Trouble concentratin g on things, such as reading the newspaper or watching television Not at all 01/26/2025 4:13 PM EDT Mychart, Generic Not at all [facility] 01-26-2025 Moving or speaking s o slowly that other people could have noticed. Or the opposite - being so fidgety or restless that you have been moving around a lot more than usual Not at all 01/26/2025 4:13 PM EDT Mychart, Generic Not at all [facility] 01-26-2025 Thoughts that you wo uld be better off , or of hurting yourself in some way Not at all 01/26/2025 4:13 PM EDT Mychart, Generic Not at all [facility] 06-11-2024 Functional Status N/A [facility] [place] 11-15-2022 Functional Status N/A [facility] 02-06-2022 Functional Status N/A [facility] Clinical Notes 01-19-2022 to 02-04-2025 Rain Souza MD - 01/29/2025 9:40 AM [place] Blas, CLAIM REVIEW MEDICAL DIRECTOR - 01/26/2025 6:46 PM [place] Blas, CLAIM REVIEW MEDICAL DIRECTOR - 01/26/2025 6:46 PM [place] Blas, SILVANO [...] Follow-up as planned in 6 months. Thanks! [facility] 01-29-2025 History of Present illness Narrative Images [...] 25 mg, Oral, 2 times daily HYDROcodone-acetaminophen (Proctor) 5-325 MG tablet 1 tablet, 3 times [...] Cellulitis of left lower extremity Cervical cancer ([facility]) 09/17/2023 Chronic pain of both knees 09/17/2023 COPD (chronic obstructive pulmonary disease) ([facility]) 07/10/2023 COPD exacerbation ([facility]) 09/17/2023 Decreased functional mobility 09/17/2023 Diabetic neuropathy ([facility]) 07/10/2023 Dietary counseling and surveillance Edema 07/10/2023 Elevated sed rate Elevated WBC count Essential (primary) hypertension GERD (gastroesophageal reflux disease) 09/17/2023 Hyperlipidemia 09/17/2023 Hypertension 07/10/2023 Insomnia 09/17/2023 snf (current) use of insulin ([facility]) Lower extremity edema 09/17/2023 Mixed hyperlipidemia Morbid (severe) obesity due to excess calories ([facility] Obstructive sleep apnea 07/10/2023 PAD (peripheral artery disease) 09/17/2023 Pancreatitis ([facility]) 09/17/2023 Pneumonia 09/17/2023 Proteinuria, unspecified Pulmonary hypertension ([facility]) 09/17/2023 Radiculopathy, lumbar region 09/17/2023 Tobacco user 09/17/2023 Type 2 diabetes mellitus with complication, with long-term current use of insulin ([facility]) 07/10/2023 Unilateral primary osteoarthritis, right [...] (BMI) of 50.0 to 59.9 in adult ([facility] [place] Diet and exercise reviewed with the patient Follow up in about 4 months (around 06/01/2025). 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 Associated Problem(s): COPD (chronic [...] 25 mg, Oral, 2 times daily HYDROcodone-acetaminophen (Proctor) 5-325 MG tablet 1 tablet, 3 times [...] 09/17/2023 Angiomyolipoma Anxiety and depression 07/10/2023 Asthma ([facility]) 07/10/2023 Body mass index (BMI) 50.0-59.9, adult [place] [place] Cellulitis of left lower extremity Cervical cancer ([facility]) 09/17/2023 Chronic pain of both knees 09/17/2023 COPD (chronic obstructive pulmonary disease) ([facility]) 07/10/2023 COPD exacerbation ([facility]) 09/17/2023 Decreased functional mobility 09/17/2023 Diabetic neuropathy ([facility]) 07/10/2023 Dietary counseling and surveillance Edema 07/10/2023 Elevated sed rate Elevated WBC count Essential (primary) hypertension GERD (gastroesophageal reflux disease) 09/17/2023 Hyperlipidemia 09/17/2023 Hypertension 07/10/2023 Insomnia 09/17/2023 snf (current) use of insulin ([facility]) Lower extremity edema 09/17/2023 Mixed hyperlipidemia Morbid (severe) obesity due to excess calories [place] [place] Obstructive sleep apnea 07/10/2023 PAD (peripheral artery disease) 09/17/2023 Pancreatitis ([facility]) 09/17/2023 Pneumonia 09/17/2023 Proteinuria, unspecified Pulmonary [...] is 7.4%!!! 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 Hypertension Please check blood pressure daily and record DASH diet Limit caffeine Take medication as directed Contact office if chest pain, pressure, dizziness, shortness of breath, swelling legs Recommend slow position changes Current meds: hydralazine, lisinopril, Relevant Medications hydrALAZINE (Apresoline) 25 MG tablet lisinopril 20 MG tablet Type 2 diabetes mellitus with complication, with long-term current use of insulin ([facility]) Check blood sugars daily, notify [...] tablet Pulmonary hypertension (HCC) Has seen [facility] Cardiology Hyperlipidemia On statin therapy Check [...] calories [place] [place] Discussed with patient their BMI (actual, verses [...] Associated Problem(s): Pulmonary hypertension (HCC) Has seen [facility] Cardiology Associated Problem(s): Hypertension Please check [...] a yearly basis documented in this encounter [facility] 01-26-2025 Instructions Mckayla Blas NP - 01/26/2025 6:00 PM EDT Please call the [facility] to schedule your mammogram: [phone]- ext [phone] documented in this encounter [facility] 01-06-2025 Note Cardiovascular Medic [facility] SUBJECTIVE Chief Complaint Patient presents with Congestive Heart Failure Hypertension Hyperlipidemia Mitzi Macais is a 54 y.o. female here for follow-up. PMHx: HFpEF, HTN, HLD, DM, longstanding heavy smoker, COPD, DANIEL, morbid obesity HPI 01/06/2025 Since last seen she was admitted to [facility] for AMS on 12/05/2024. She was treated [...] 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 ([facility]/HCC) snf current use of inhaled steroid Vitamin D deficiency, unspecified Vitamin deficiency Past Medical History: Diagnosis Date COPD (chronic obstructive pulmonary disease) (CMS/[facility]) Diabetes mellitus ([facility]) Hyperlipidemia Hypertension Sleep apnea Family [...] , Rfl: ergocalciferol (Vitamin D-2) 1.25 MG (00673 Units) capsule, Take 1.25 mg by mouth., [...] and at bedtime., Disp: , Rfl: HYDROcodone-acetaminophen (Proctor) 5-325 mg tablet, TAKE 1 TABLET BY MOUTH THREE TIMES A DAY NEEDED FOR PAIN MUST LAST 30 DAYS, Disp: , Rfl: insulin aspart (NovoLOG) 100 unit/mL (3 mL) injection pen, Novolog Flexpen U-100 Insulin aspart 100 unit/mL (3 mL) subcutaneous, Disp: , Rfl: insulin glargine (Lantus Solostar U-100 Insulin) 100 unit/mL (3 mL) injection pen (more content not included)... [facility] 01-06-2025 Note Patient is here toda y [...] weight gain. Cardiovascular: Positive for leg swelling. [facility] 12-09-2024 History of Present illness Narrative Associated [...] bad light. She was ultimately taken to [facility] ER, no tox screen was done that [...] 25 mg, Oral, 2 times daily HYDROcodone-acetaminophen (Proctor) 5-325 MG tablet 1 tablet, 3 times [...] CT Albuminuria 09/17/2023 Angiomyolipoma Anxiety and depression ([facility] [place]) 07/10/2023 Asthma 07/10/2023 Body mass index (BMI) 50.0-59.9, adult ([facility] [place]) Cellulitis of left lower extremity Cervical cancer ([facility]) 09/17/2023 Chronic pain of both knees 09/17/2023 COPD (chronic obstructive pulmonary disease) ([facility]) 07/10/2023 COPD exacerbation ([facility]) 09/17/2023 Decreased functional mobility 09/17/2023 Diabetic neuropathy ([facility]) 07/10/2023 Dietary counseling and surveillance Edema 07/10/2023 Elevated sed rate Elevated WBC count Essential (primary) hypertension ([facility]) GERD (gastroesophageal reflux disease) 09/17/2023 Hyperlipidemia ([facility]) 09/17/2023 Hypertension ([facility]) 07/10/2023 Insomnia 09/17/2023 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 ([facility]) Lower extremity edema 09/17/2023 Mixed hyperlipidemia ([facility]) Morbid (severe) obesity due to excess calories ([facility]) Obstructive sleep apnea 07/10/2023 PAD (peripheral artery disease) ([facility]) 09/17/2023 Pancreatitis 09/17/2023 Pneumonia 09/17/2023 Proteinuria, unspecified Pulmonary hypertension ([facility]) 09/17/2023 Radiculopathy, lumbar region 09/17/2023 Tobacco user 09/17/2023 Type 2 diabetes mellitus with complication, with long-term current use of insulin ([facility]) 07/10/2023 Unilateral primary osteoarthritis, right [...] Problem List Items Addressed This Visit Hypertension ([facility]) Please check blood pressure daily and record DASH diet Limit caffeine Take medication as directed Contact office if chest pain, pressure, dizziness, shortness of breath, swelling legs Recommend slow position changes Current meds: hydralazine, lisinopril, Type 2 diabetes mellitus with complication, with long-term current use of insulin ([facility]) Check blood sugars daily, notify [...] secondary to her steroids Anxiety and depression ([facility]) Current meds: elavil, duloxtine, COPD exacerbation ([facility]) Recent ER visit for unresponsiveness , found to have fever and elevated WBC Sent home with steroids and atb Breathing is better and she feels back to her normal baseline Does have home O2, she is not wearing this today Pulmonary hypertension ([facility]) Has seen [facility] Cardiology Morbid (severe) obesity due to excess calories ([facility]) Discussed with patient their BMI [...] Associated Problem(s): Pulmonary hypertension (CMS/HCC) Has seen [facility] Cardiology Associated Problem(s): Hypertension (CMS/HCC) Please [...] wearing this today documented in this encounter [facility] 12-09-2024 Instructions Mckayla Blas NP - 12/09/2024 10:00 AM EDT Keep appt with wound care today Keep fu with me, sooner if needed documented in this encounter [facility] 10-27-2024 History of Present illness [...] PPI Associated Problem(s): PAD (peripheral artery disease) ([facility]) Asa, statin Quit smoking BP [...] 25 mg, Oral, 2 times daily HYDROcodone-acetaminophen (Proctor) 5-325 MG tablet 1 tablet, 3 times [...] CT Albuminuria 09/17/2023 Angiomyolipoma Anxiety and depression ([facility]) 07/10/2023 Asthma 07/10/2023 Body mass index (BMI) 50.0-59.9, adult ([facility]) Cellulitis of left lower extremity Cervical cancer ([facility]) 09/17/2023 Chronic pain of both knees 09/17/2023 COPD (chronic obstructive pulmonary disease) ([facility]) 07/10/2023 COPD exacerbation ([facility]) 09/17/2023 Decreased functional mobility 09/17/2023 Diabetic neuropathy ([facility]) 07/10/2023 Dietary counseling and surveillance Edema 07/10/2023 Elevated sed rate Elevated WBC count Essential (primary) hypertension ([facility]) GERD (gastroesophageal reflux disease) 09/17/2023 Hyperlipidemia ([facility]) 09/17/2023 Hypertension ([facility]) 07/10/2023 Insomnia 09/17/2023 snf (current) use of insulin ([facility]) Lower extremity edema 09/17/2023 Mixed hyperlipidemia ([facility]) Morbid (severe) obesity due to excess calories ([facility]) Obstructive sleep apnea 07/10/2023 PAD (peripheral artery disease) ([facility]) 09/17/2023 Pancreatitis 09/17/2023 Pneumonia 09/17/2023 Proteinuria, unspecified Pulmonary hypertension ([facility]) 09/17/2023 Radiculopathy, lumbar region 09/17/2023 Tobacco user 09/17/2023 Type 2 diabetes mellitus with complication, with long-term current use of insulin ([facility]) 07/10/2023 Unilateral primary osteoarthritis, right [...] List Items Addressed This Visit Diabetic neuropathy ([facility]) - Primary Continue with cintia hudson is prescribing OARRS reviewed Fu in 3 months Goal: tighter glucose control, this has been improving, latest A1c is 7.4%!!! Hypertension ([facility]) Please check blood pressure daily and record DASH diet Limit caffeine Take medication as directed Contact office if chest pain, pressure, dizziness, shortness of breath, swelling legs Recommend slow position changes Current meds: hydralazine, lisinopril, Relevant Medications hydrALAZINE (Apresoline) 25 MG tablet lisinopril 20 MG tablet Type 2 diabetes mellitus with complication, with long-term current use of insulin ([facility]) Check blood sugars daily, notify [...] 81 MG chewable tablet Anxiety and depression ([facility]) Current meds: elavil, duloxtine, Relevant [...] Morbid (severe) obesity due to excess calories ([facility]) Discussed with patient their BMI [...] mounjaro for DM Chronic diastolic heart failure ([facility]/HCC) Current meds; asa, farxiga, lasix, hydralazine, lisinopril, Follows with [facility] Reviewed 08/02 notes Cigarette nicotine dependence without complication Is currently using chantix, and is doing well, less desire, smoking less Vitamin D deficiency, unspecified Relevant Medications ergocalciferol (Vitamin D2) 1.25 MG (35877 UT) capsule Gastro-esophageal reflux disease without esophagitis [...] A1c is 7.4%!!! documented in this encounter [facility] 10-27-2024 Instructions Mckayla Blas NP - 10/27/2024 2:00 PM EDT No dose changes in meds You will be due for mammogram I will send order to [facility], they should call you to schedule If no call, please call [phone] documented in this encounter [facility] 10-08-2024 History of Present illness [...] or chew. ergocalciferol (Vitamin D2) 1.25 MG (72983 UT) capsule TAKE 1 CAPSULE BY MOUTH [...] 25 mg, Oral, 2 times daily HYDROcodone-acetaminophen (Proctor) 5-325 MG tablet 1 tablet, 3 times [...] CT Albuminuria 09/17/2023 Angiomyolipoma Anxiety and depression ([facility]) 07/10/2023 Asthma ([facility]) 07/10/2023 Body mass index (BMI) 50.0-59.9, adult ([facility]) Cellulitis of left lower extremity Cervical cancer ([facility]) 09/17/2023 Chronic pain of both knees 09/17/2023 COPD (chronic obstructive pulmonary disease) ([facility]) 07/10/2023 COPD exacerbation ([facility]) 09/17/2023 Decreased functional mobility 09/17/2023 Diabetic neuropathy ([facility]) 07/10/2023 Dietary counseling and surveillance Edema 07/10/2023 Elevated sed rate Elevated WBC count Essential (primary) hypertension ([facility]) GERD (gastroesophageal reflux disease) 09/17/2023 Hyperlipidemia ([facility]) 09/17/2023 Hypertension ([facility]) 07/10/2023 Insomnia 09/17/2023 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 ([facility]) Lower extremity edema 09/17/2023 Mixed hyperlipidemia ([facility]) Morbid (severe) obesity due to excess calories ([facility]) Obstructive sleep apnea 07/10/2023 PAD (peripheral artery disease) ([facility]) 09/17/2023 Pancreatitis 09/17/2023 Pneumonia 09/17/2023 Proteinuria, unspecified Pulmonary hypertension ([facility]) 09/17/2023 Radiculopathy, lumbar region 09/17/2023 Tobacco user 09/17/2023 Type 2 diabetes mellitus with complication, with long-term current use of insulin ([facility]) 07/10/2023 Unilateral primary osteoarthritis, right [...] months (around 02/07/2025). documented in this encounter [facility] 08-27-2024 History of Present illness [...] or chew. ergocalciferol (Vitamin D2) 1.25 MG (59553 UT) capsule TAKE 1 CAPSULE BY MOUTH [...] 25 mg, Oral, 2 times daily HYDROcodone-acetaminophen (Proctor) 5-325 MG tablet 1 tablet, 3 times [...] Angiomyolipoma Anxiety and depression (CMS/HCC) 07/10/2023 Asthma ([facility]) 07/10/2023 Body mass index (BMI) 50.0-59.9, adult ([facility]) Cellulitis of left lower extremity Cervical cancer ([facility]) 09/17/2023 Chronic pain of both knees 09/17/2023 COPD (chronic obstructive pulmonary disease) ([facility]) 07/10/2023 COPD exacerbation ([facility]) 09/17/2023 Decreased functional mobility 09/17/2023 Diabetic neuropathy ([facility]) 07/10/2023 Dietary counseling and surveillance Edema 07/10/2023 Elevated sed rate Elevated WBC count Essential (primary) hypertension ([facility]) GERD (gastroesophageal reflux disease) 09/17/2023 Hyperlipidemia ([facility]) 09/17/2023 Hypertension ([facility]) 07/10/2023 Insomnia 09/17/2023 snf (current) use of insulin ([facility]) Lower extremity edema 09/17/2023 Mixed hyperlipidemia ([facility]) Morbid (severe) obesity due to excess calories ([facility]) Obstructive sleep apnea 07/10/2023 PAD (peripheral artery disease) ([facility]) 09/17/2023 Pancreatitis 09/17/2023 Pneumonia 09/17/2023 Proteinuria, unspecified Pulmonary hypertension ([facility]) 09/17/2023 Radiculopathy, lumbar region 09/17/2023 Tobacco user 09/17/2023 Type 2 diabetes mellitus with complication, with long-term current use of insulin ([facility]) 07/10/2023 Unilateral primary osteoarthritis, right hip 09/17/2023 [...] of the risks of continued smoking: stroke, LA, all forms of cancer, lung disease, and [...] of the risks of continued smoking: stroke, LA, all forms of cancer, lung disease, and . Options for quitting smoking include: cold turkey, hypnosis, acupuncture, nicotine replacement meds (gum, lozenges, and patches), Buproprion, and Varenicline. At this time pt is encouraged to evaluate their goals for wanting to quit smoking, and reach out to provider when ready to start this process Willing to trial nicotine patches Associated Problem(s): Anxiety and depression ([facility]/HCC) Current meds: elavil, duloxtine, PHQ 9= 5 IRENE 7=3 Current meds: TCA, and duloxetine Associated Problem(s): Type 2 diabetes mellitus with complication, with long-term current use of insulin ([facility]) Check blood sugars daily, notify [...] Associated Problem(s): COPD (chronic obstructive pulmonary disease) ([facility]) Follows with verena Needs smoking cessation Current meds: duoneb, albuterol, daliresp, Associated Problem(s): Asthma ([facility]) Current meds: albuterol, duoneb, 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 year old female patient being seen for follow-up on diastolic heart failure, shortness of breath and hypertension Patient Active Problem List Diagnosis Abdominal pannus Adrenal mass 1 cm to 4 cm in diameter ([facility]/HCC) Albuminuria RAGHU positive Anxiety and depression Arthritis Asthma Bilateral lower extremity edema BMI 50.0-59.9, adult ([facility]) Candidiasis of breast Cardiomegaly Cervical cancer ([facility]/HCC) Chronic pain of both knees Closed fracture of upper end of humerus Acute respiratory distress syndrome ([facility]/HCC) Decreased functional mobility Diabetic neuropathy ([facility]) Easy bruising GERD (gastroesophageal reflux disease) Gout Headache Hyperlipidemia Hypertension Insomnia Kidney stone Left flank pain Mixed incontinence Class 3 severe obesity with serious comorbidity and body mass index (BMI) of 50.0 to 59.9 in adult ([facility]) Non-seasonal allergic rhinitis Obstructive sleep apnea Other chronic pain PAD (peripheral artery disease) ([facility]) Pneumonia Encounter for screening mammogram for malignant neoplasm of breast Pulmonary hypertension ([facility]) Radiculopathy, lumbar region Current smoker Type 2 diabetes mellitus with complication, with long-term current use of insulin ([facility]) Unilateral primary osteoarthritis, right hip Vaginal yeast infection Venous insufficiency Bad odor of urine Critical limb ischemia of right lower extremity ([facility]) Hyperpigmentation of skin 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 2 diabetes mellitus ([facility]) Myelolipoma of adrenal gland Venous ulcer of right leg ([facility]) HPI Patient was has history [...] Diagnosis Date COPD (chronic obstructive pulmonary disease) ([facility]) Diabetes mellitus ([facility]) Hyperlipidemia Hypertension Sleep apnea Past [...] , Rfl: ergocalciferol (Vitamin D-2) 1.25 MG (26341 Units) capsule, Take 1.25 mg by mouth., [...] and at bedtime., Disp: , Rfl: HYDROcodone-acetaminophen (Proctor) 5-325 mg tablet, TAKE 1 TABLET BY [...] TWICE DAILY, Disp: (more content not included)... [facility] 07-14-2024 History of Present illness Narrative Associated [...] or chew. ergocalciferol (Vitamin D2) 1.25 MG (14269 UT) capsule TAKE 1 CAPSULE BY MOUTH ONE TIME PER WEEK furosemide (LASIX) 40 mg, Oral, Daily furosemide (LASIX) 20 mg, Oral, Daily PRN, Take in the afternoon as needed hydrALAZINE (APRESOLINE) 25 mg, Oral, 2 times daily HYDROcodone-acetaminophen (Proctor) 5-325 MG tablet 1 tablet, 3 times [...] CT Albuminuria 09/17/2023 Angiomyolipoma Anxiety and depression ([facility]) 07/10/2023 Asthma ([facility]) 07/10/2023 Body mass index (BMI) 50.0-59.9, adult ([facility]) Cellulitis of left lower extremity Cervical cancer ([facility]) 09/17/2023 Chronic pain of both knees 09/17/2023 COPD (chronic obstructive pulmonary disease) ([facility]) 07/10/2023 COPD exacerbation ([facility]) 09/17/2023 Decreased functional mobility 09/17/2023 Diabetic neuropathy ([facility]) 07/10/2023 Dietary counseling and surveillance Edema 07/10/2023 Elevated sed rate Elevated WBC count Essential (primary) hypertension ([facility]) GERD (gastroesophageal reflux disease) 09/17/2023 Hyperlipidemia ([facility]) 09/17/2023 Hypertension ([facility]) 07/10/2023 Insomnia 09/17/2023 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 ([facility]) Lower extremity edema 09/17/2023 Mixed hyperlipidemia ([facility]) Morbid (severe) obesity due to excess calories ([facility]) Obstructive sleep apnea 07/10/2023 PAD (peripheral artery disease) ([facility]) 09/17/2023 Pancreatitis 09/17/2023 Pneumonia 09/17/2023 Proteinuria, unspecified Pulmonary hypertension ([facility] [facility] 09/17/2023 Radiculopathy, lumbar region 09/17/2023 Tobacco user 09/17/2023 Type 2 diabetes mellitus with complication, with long-term current use of insulin ([facility]) 07/10/2023 Unilateral primary osteoarthritis, right hip 09/17/2023 [...] List Items Addressed This Visit Diabetic neuropathy ([facility]) Continue with lyrica OARRS reviewed Fu in 3 months COPD (chronic obstructive pulmonary disease) ([facility]) Stable at this time, no changes in meds Encouraged smoking cessation Cont with dr Yañez Hypertension ([facility]) - Primary Please check blood pressure daily and record DASH diet Limit caffeine Take medication as directed Contact office if chest pain, pressure, dizziness, shortness of breath, swelling legs Recommend slow position changes Current meds: hydralazine, lisinopril, Type 2 diabetes mellitus with complication, with long-term current use of insulin ([facility]) Check blood sugars daily, notify if <70 [...] take over prescribing PAD (peripheral artery disease) ([facility]) Asa, statin Quit smoking BP [...] of the risks of continued smoking: stroke, LA, all forms of cancer, lung disease, and [...] 1 cm to 4 cm in diameter ([facility]) Continue with Urology Kidney stone Continue with Urology Non-seasonal allergic rhinitis Relevant Medications cetirizine (ZyrTEC) 10 MG tablet Critical limb ischemia of right lower extremity ([facility]) Saw vascular, does have narrowing in arteries in legs, and thus the wounds not healing At this point they strongly urge to quit smoking or risk limb amputation Cont asa and statin Also good blood pressure and sugar control Venous ulcer of right leg ([facility]) Encounter for smoking cessation counseling Relevant Medications nicotine (Nicoderm, Step 1) 21 MG/24HR patch Other Visit Diagnoses Type 2 diabetes mellitus with unspecified complications ([facility]) Quitting smokinppd, chantix not helped, ] Face time with pt, spent 15 minutes with pt Associated Problem(s): Tobacco user The patient has been advised of the risks of continued smoking: stroke, LA, all forms of cancer, lung disease, and [...] complication, with long-term current use of insulin ([facility]) Check blood sugars daily, notify [...] in 3 months documented in this encounter [facility] 06-11-2024 Hospital Discharge instructions [...] require a prescription. You can also purchase ivbn-awg-ocwfebb medicines. Medicines may have nicotine in them [...] and encouragement. Call telephone quitlines, such as 3-977-VBXH-NOW, reach out to support groups, or work [...] provider. Document Revised: 06/16/2022 Document Reviewed: 06/16/2022 [employer] Patient Education 2023 [employer]. 06/11/2024 10:39:22 Dietary Guidelines to Help [...] include: ?8 oz (237 mL) of milk, otrbttz-pladxdnqkmup-jgjnh milk, and calcium-fortifiedfruit juice. Calcium-fortified means that [...] ?Spinach (cooked), rhubarb, beets, sweet potatoes, and Malian chard. ?Peanuts. ?Potato chips, ukrainian fries, and baked potatoes with skin on. ?Nuts and nut products. ?Chocolate. If you regularly take a diuretic medicine, make sure to eat at least 1 or 2 servings of fruits or vegetables that are high in potassium each day. These include: ?Avocado. ?Banana. ?[place], prune, carrot, or tomato juice. ?Baked potato. [...] magnesium, fish oil, or vitamin B6. Take ewit-qvv-zuasczs and prescription medicines only as told by [...] Casseroles. Pizza. Lasagna. Frozen meals. Potato chips. Latvian fries. The items listed above may not [...] provider. Document Revised: 10/05/2022 Document Reviewed: 10/05/2022 [employer] Patient Education 2023 [employer]. Follow Up Care 05/06/2024 08:24:56 With:REGLA PHIPPS, Elbert Joya, URL Address: [facility] [address] , [place] [address]- When: Unknown [facility] 05-27-2024 History of Present illness Narrative Mitzi Mcaias is a 53 y.o. female Rain Souza [...] or chew. ergocalciferol (Vitamin D2) 1.25 MG (09335 UT) capsule TAKE 1 CAPSULE BY MOUTH ONE TIME PER WEEK furosemide (LASIX) 20 mg, Oral, Daily PRN, Take in the afternoon as needed furosemide (LASIX) 40 mg, Oral, Daily Glucose Blood (ACCU-CHEK JAQUI PLUS ) 4 times daily hydrALAZINE (APRESOLINE) 25 mg, Oral, 2 times daily HYDROcodone-acetaminophen (Proctor) 5-325 MG tablet 1 tablet, 3 times [...] CT Albuminuria 09/17/2023 Angiomyolipoma Anxiety and depression ([facility]) 07/10/2023 Asthma ([facility]) 07/10/2023 Body mass index (BMI) 50.0-59.9, adult ([facility]) Cellulitis of left lower extremity Cervical cancer ([facility]) 09/17/2023 Chronic pain of both knees 09/17/2023 COPD (chronic obstructive pulmonary disease) ([facility]) 07/10/2023 COPD exacerbation ([facility]) 09/17/2023 Decreased functional mobility 09/17/2023 Diabetic neuropathy ([facility]) 07/10/2023 Dietary counseling and surveillance Edema 07/10/2023 Elevated sed rate Elevated WBC count GERD (gastroesophageal reflux disease) 09/17/2023 Hyperlipidemia ([facility]) 09/17/2023 Hypertension ([facility]) 07/10/2023 Insomnia 09/17/2023 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 ([facility]) Lower extremity edema 09/17/2023 Morbid (severe) obesity due to excess calories ([facility]) Obstructive sleep apnea 07/10/2023 PAD (peripheral artery disease) ([facility]) 09/17/2023 Pancreatitis 09/17/2023 Pneumonia 09/17/2023 Proteinuria, unspecified Pulmonary hypertension ([facility]) 09/17/2023 Radiculopathy, lumbar region 09/17/2023 Tobacco user 09/17/2023 Type 2 diabetes mellitus with complication, with long-term current use of insulin ([facility]) 07/10/2023 Unilateral primary osteoarthritis, right [...] hyperglycemia, with long-term current use of insulin ([facility]) - POCT glucose manually resulted - POCT glycosylated hemoglobin (Hb A1C) docked device We will continue with Lantus 58, lispro 08/10/12 according to meal size, Mounjaro 15 mg once weekly, Farxiga 5 mg once a day Encounter for dietary consultation Vitamin D deficiency Primary hypertension ([facility]) To follow with her PCP Insulin long-term use ([facility]) Hyperlipemia, mixed ([facility]) Continue with Zocor 10 mg once daily Microalbuminuria Class 3 severe obesity due to excess calories with serious comorbidity and body mass index (BMI) of 50.0 to 59.9 in adult ([facility]) Diet and exercise reviewed with the patient Follow up in about 3 months (around 08/27/2024). documented in this encounter [facility] 04-14-2024 History of Present illness Narrative Associated Problem(s): Hyperpigmentation of skin Will try cerevue ointment to see if helps Associated Problem(s): Tobacco user Urged to quit Associated Problem(s): Type 2 diabetes mellitus with complication, with long-term current use of insulin ([facility]) Check blood sugars daily, follow [...] being taken. She does not see a high risk case manager.Eye exam is not current. Hypertension This [...] or chew. ergocalciferol (Vitamin D2) 1.25 MG (38213 UT) capsule TAKE 1 CAPSULE BY MOUTH ONE TIME PER WEEK furosemide (LASIX) 20 mg, Oral, Daily PRN, Take in the afternoon as needed furosemide (LASIX) 40 mg, Oral, Daily Glucose Blood (ACCU-CHEK JAQUI PLUS ) 4 times daily HumaLOG KWIKPEN 100 UNIT/ML injection Subcutaneous hydrALAZINE (APRESOLINE) 25 mg, Oral, 2 times daily HYDROcodone-acetaminophen (Proctor) 5-325 MG tablet 1 tablet, 3 times [...] CT Albuminuria 09/17/2023 Angiomyolipoma Anxiety and depression ([facility]) 07/10/2023 Asthma ([facility]) 07/10/2023 Cellulitis of left lower extremity Cervical cancer ([facility]) 09/17/2023 Chronic pain of both knees 09/17/2023 COPD (chronic obstructive pulmonary disease) ([facility]) 07/10/2023 COPD exacerbation ([facility]) 09/17/2023 Decreased functional mobility 09/17/2023 Diabetic neuropathy ([facility]) 07/10/2023 Edema 07/10/2023 Elevated sed rate Elevated WBC count GERD (gastroesophageal reflux disease) 09/17/2023 Hyperlipidemia ([facility]) 09/17/2023 Hypertension ([facility]) 07/10/2023 Insomnia 09/17/2023 Lower extremity edema 09/17/2023 Obstructive sleep apnea 07/10/2023 PAD (peripheral artery disease) ([facility]) 09/17/2023 Pancreatitis 09/17/2023 Pneumonia 09/17/2023 Pulmonary hypertension ([facility]) 09/17/2023 Radiculopathy, lumbar region 09/17/2023 Tobacco user 09/17/2023 Type 2 diabetes mellitus with complication, with long-term current use of insulin ([facility]) 07/10/2023 Unilateral primary osteoarthritis, right [...] List Items Addressed This Visit Diabetic neuropathy ([facility]) Continue with tristan EAST reviewed Fu in 3 months Relevant Medications pregabalin (Lyrica) 300 MG capsule COPD (chronic obstructive pulmonary disease) ([facility]) - Primary Stable at this time, no changes in meds Encouraged smoking cessation Cont with dr Yañez Hypertension ([facility]) Stable on current meds Refill meds Relevant Medications hydrALAZINE (Apresoline) 25 MG tablet lisinopril 20 MG tablet Type 2 diabetes mellitus with complication, with long-term current use of insulin ([facility]) Check blood sugars daily, follow [...] 81 MG chewable tablet Anxiety and depression ([facility]) Relevant Medications DULoxetine (Cymbalta) [address] capsule Bilateral lower extremity edema Stable on current meds Insomnia Relevant Medications amitriptyline (Elavil) 25 MG tablet Tobacco user Urged to quit Non-seasonal allergic rhinitis Relevant Medications cetirizine (ZyrTEC) 10 MG tablet Hyperpigmentation of skin Will try cerevue ointment to see if helps Other Visit Diagnoses Type 2 diabetes mellitus with unspecified complications ([facility]) Relevant Medications dapagliflozin (Farxiga) 10 MG Gastro-esophageal reflux disease without esophagitis Relevant Medications omeprazole (PriLOSEC) [address] capsule Edema, unspecified Relevant Medications potassium chloride ER (Micro-K) 10 MEQ ER capsule Edema Relevant Medications potassium chloride ER (Micro-K) 10 MEQ ER capsule Chronic obstructive pulmonary disease, unspecified ([facility]) Relevant Medications Roflumilast 500 MCG tablet documented in this encounter [facility] 11-15-2022 Hospital Discharge instructions Patient [...] include: ?8 oz (237 mL) of milk, nkuatfa-wotgmaorampr-kqxpn milk, and calcium-fortifiedfruit juice. Calcium-fortified means that [...] ?Spinach (cooked), rhubarb, beets, sweet potatoes, and Malian chard. ?Peanuts. ?Potato chips, ukrainian fries, and baked potatoes with skin on. ?Nuts and nut products. ?Chocolate. If you regularly take a diuretic medicine, make sure to eat at least 1 or 2 servings of fruits or vegetables that are high in potassium each day. These include: ?Avocado. ?Banana. ?[place], prune, carrot, or tomato juice. ?Baked potato. [...] magnesium, fish oil, or vitamin B6. Take jygj-lyu-nocyxaj and prescription medicines only as told by [...] Casseroles. Pizza. Lasagna. Frozen meals. Potato chips. Latvian fries. The items listed above may not [...] provider. Document Revised: 03/06/2022 Document Reviewed: 03/06/2022 [employer] Patient Education 2022 [employer]. Follow Up Care 02/06/2022 11:44:09 With:SILVIA HOWELL, SARAH Webb, URL Address: [address] [place] [address] When: Unknown [facility] 08-24-2022 Note CONSULTATION CONSULTATION DATE: 08/24/2022 HISTORY [...] We maintain her on pain medication with Proctor 5/325 t.i.d., diclofenac 75 mg b.i.d. Her [...] her at this point. A refill for Proctor 5/325 t.i.d. and diclofenac 75 mg b.i.d. will be sent to the pharmacy. Vitamin compliance and nutrition were discussed and enforced. I did highly encourage her to use exercise bands to increase the strength in her lower extremities. We will see her in three months' time, unless otherwise indicated, and patient agrees. [facility] 05-11-2022 Note CONSULTATION CONSULTATION DATE: 05/11/2022 This [...] 150. Medications include Lyrica 300 mg b.i.d., Proctor 5/325 t.i.d., diclofenac 75 mg b.i.d. and [...] her medications today. We will maintain Lyrica, Proctor and diclofenac at the set dose and frequency. We will follow-up in the clinic in three months' time. The patient is in agreement to this. Vitamin importance and nutrition were discussed. [facility] 04-20-2022 Note CONSULTATION CONSULTATION DATE: 04/20/2022 HISTORY [...] medications include Tylenol, Lyrica 300 mg b.i.d., Proctor 5/325 t.i.d., amitriptyline, diclofenac and duloxetine. Patient's [...] clinic. [facility] 03-08-2022 Evaluation note Encounter Date Diagnosis Assessment [...] to the DANIEL. Thrombocytopenia is unclear etiology. [facility] Other 08-15-2022 Evaluation note* Encounter Date Diagnosis [...] follow with Dr. Souza and Dr. Arauz. [facility] Other 08-01-2022 Hospital Discharge instructions Patient Education [...] fried and sweet foods. General instructions Take poxc-cvp-yxpmmok and prescription medicines only as told by [...] 04/21/2010 Document Revised: 10/16/2019 Document Reviewed: 07/11/2018 [employer] Patient Education 2020 [employer] Follow Up Care 01/05/2022 12:02:03 With:REGLA PHIPPS, Elbert Joya, URL Address: [facility] [address], [place] [address] [phone] When:Within 6 Month(s) Comments:w/ repeat CT A/P [facility] 07-14-2022 NoteCONSULTATION PROCEDURE DATE: 01/19/2022 [...] [facility] Signed and Approved by: GLI VALENZUELA . 01/27/2022 14:15:00[facility]07-14-2022 NoteCONSULTATION CONSULTATION DATE: 01/19/2022 This is [...] today. Medications include Lyrica 300 mg b.i.d., Proctor 5/325 t.i.d., diclofenac 75 mg b.i.d. and [...] Approved by: GIL VALENZUELA . 01/27/2022 14:[facility]00[facility] Future Appointments Appointment Date:08/14/2022 09:15:00 AM Scheduled Provider:Elbert ARAUZ MD Location:[facility] Appointment Type:URO Office Visit [facility] Evaluation + Plan note Future Appointments Appointment Date:04/22/2024 10:00:00 AM Scheduled Provider:SARAH VEGA PA-C Location:[facility] Appointment Type:URO Office Visit [facility] evaluation note* Diagnosis Type 2 diabetes mellitus with unspecified complications (CMS/HCC) Edema, unspecified Edema documented in this encounter [facility] HealthcareEvaluation note* Diagnosis Vaginal yeast infection- Primary Candidiasis of vulva and vagina documented in this encounter [facility] HealthcareEvaluation note* Diagnosis Primary hypertension (CMS/HCC)- Primary [...] skin Other dyschromia documented in this encounter [facility] HealthcareEvaluation note* Diagnosis Obstructive sleep apnea- [...] Type 2 diabetes mellitus with unspecified complications ([facility]) Anxiety and depression ([facility]) Gastro-esophageal reflux disease without esophagitis Edema, unspecified Edema Diabetic polyneuropathy associated with type 2 diabetes mellitus ([facility]) Chronic obstructive pulmonary disease, unspecified ([facility]) Pulmonary emphysema, unspecified emphysema type ([facility]) Bilateral lower extremity edema Tobacco user Tobacco use disorder Hyperpigmentation of skin Other dyschromia Type 2 diabetes mellitus with hyperglycemia, with long-term current use of insulin ([facility])- Primary Encounter for dietary consultation Vitamin D deficiency Primary hypertension ([facility]) Unspecified essential hypertension Insulin long-term use ([facility]) Encounter for long-term (current) use of insulin Hyperlipemia, mixed ([facility]) Mixed hyperlipidemia Microalbuminuria Proteinuria Class 3 severe obesity due to excess calories with serious comorbidity and body mass index (BMI) of 50.0 to 59.9 in adult ([facility]) documented in this encounter [facility] HealthcareEvaluation note* Diagnosis Hyperlipidemia, unspecified ([facility]) Bilateral lower extremity edema documented in this encounter [facility]Evaluation note* Diagnosis Vitamin D deficiency, unspecified documented in this encounter [facility] HealthcareEvaluation note* Diagnosis Obstructive sleep apnea- Primary Obstructive sleep apnea (adult) (pediatric) Pulmonary emphysema, unspecified emphysema type ([facility]) Primary hypertension ([facility]) Unspecified essential hypertension Type 2 diabetes mellitus with complication, with long-term current use of insulin ([facility]) Anxiety and depression ([facility]) Bilateral lower extremity edema Pulmonary emphysema, unspecified emphysema type ([facility])- Primary Primary hypertension ([facility]) Unspecified essential hypertension Class 3 severe obesity with serious comorbidity and body mass index (BMI) of 50.0 to 59.9 in adult, unspecified obesity type ([facility]) Obstructive sleep apnea Obstructive sleep apnea (adult) (pediatric) Pulmonary hypertension ([facility]) Other chronic pulmonary heart diseases Tobacco user Tobacco use disorder Cardiomegaly Primary hypertension ([facility])- Primary Unspecified essential hypertension Gastroesophageal reflux disease, unspecified whether esophagitis present Type 2 diabetes mellitus with complication, with long-term current use of insulin ([facility]) Mixed hyperlipidemia ([facility]) Mixed hyperlipidemia Tobacco user Tobacco [...] to 59.9 in adult, unspecified obesity type ([facility]) Encounter for subsequent annual wellness [...] polyneuropathy associated with type 2 diabetes mellitus ([facility]) Chronic obstructive pulmonary disease, unspecified ([facility]) Pulmonary emphysema, unspecified emphysema type ([facility]) Bilateral lower extremity edema Tobacco user Tobacco use disorder Hyperpigmentation of skin Other dyschromia Bilateral lower extremity edema documented in this encounter [facility] HealthcareEvaluation note* Diagnosis Obstructive sleep apnea- Primary Obstructive sleep apnea (adult) (pediatric) Pulmonary emphysema, unspecified emphysema type ([facility]) Primary hypertension ([facility]) Unspecified essential hypertension Type 2 diabetes mellitus with complication, with long-term current use of insulin ([facility]) Anxiety and depression ([facility]) Bilateral lower extremity edema Pulmonary emphysema, unspecified emphysema type ([facility])- Primary Primary hypertension ([facility]) Unspecified essential hypertension Class 3 severe obesity with serious comorbidity and body mass index (BMI) of 50.0 to 59.9 in adult, unspecified obesity type ([facility]) Obstructive sleep apnea Obstructive sleep apnea (adult) (pediatric) Pulmonary hypertension ([facility]) Other chronic pulmonary heart diseases Tobacco user Tobacco use disorder Cardiomegaly Primary hypertension ([facility])- Primary Unspecified essential hypertension Gastroesophageal reflux disease, unspecified whether esophagitis present Type 2 diabetes mellitus with complication, with long-term current use of insulin ([facility]) Mixed hyperlipidemia ([facility]) Mixed hyperlipidemia Tobacco user Tobacco use disorder Encounter for screening mammogram for malignant neoplasm of breast Chronic obstructive pulmonary disease, unspecified ([facility]) Other specified chronic obstructive pulmonary disease ([facility]) Anxiety and depression ([facility]) Edema, unspecified Edema Hyperlipidemia, unspecified ([facility]) Diabetic polyneuropathy associated with type 2 diabetes mellitus ([facility]) Gout, unspecified cause, unspecified chronicity, unspecified site Non-seasonal allergic rhinitis, unspecified trigger Bilateral lower extremity edema COPD exacerbation ([facility]) Obstructive chronic bronchitis with exacerbation Pulmonary emphysema, unspecified emphysema type ([facility]) Venous insufficiency Unspecified venous (peripheral) insufficiency Candidiasis of breast COPD exacerbation ([facility])- Primary Obstructive chronic bronchitis with exacerbation Pulmonary hypertension ([facility]) Other chronic pulmonary heart diseases [...] Major depressive disorder, single episode, mild (HCC) ([facility]) Major depressive disorder, single episode, mild 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 exposed (CMS/[facility]) Chronic respiratory failure, unspecified whether with hypoxia or hypercapnia (CMS/[facility]) Disorder of adrenal gland, unspecified (CMS/[facility]) Non-pressure chronic ulcer of other [...] with unspecified complications (CMS/HCC) Anxiety and depression (CMS/[facility]) Gastro-esophageal reflux disease without esophagitis [...] complication, with long-term current use of insulin ([facility]) Tobacco user Tobacco use disorder Encounter for smoking cessation counseling Kidney stone Calculus of kidney Adrenal mass 1 cm to 4 cm in diameter ([facility]) Radiculopathy, lumbar region Thoracic or lumbosacral neuritis or radiculitis, unspecified Non-seasonal allergic rhinitis, unspecified trigger Type 2 diabetes mellitus with unspecified complications ([facility]) documented in this encounter [facility] HealthcareEvaluation note* Diagnosis Obstructive sleep apnea- Primary Obstructive sleep apnea (adult) (pediatric) Pulmonary emphysema, unspecified emphysema type (CMS/[facility]) Primary hypertension ([facility]) Unspecified essential hypertension Type 2 diabetes mellitus with complication, with long-term current use of insulin ([facility]) Anxiety and depression ([facility]) Bilateral lower extremity edema Pulmonary emphysema, unspecified emphysema type ([facility])- Primary Primary hypertension ([facility]) Unspecified essential hypertension Class 3 severe obesity with serious comorbidity and body mass index (BMI) of 50.0 to 59.9 in adult, unspecified obesity type ([facility]) Obstructive sleep apnea Obstructive sleep apnea (adult) (pediatric) Pulmonary hypertension ([facility]) Other chronic pulmonary heart diseases Tobacco user Tobacco use disorder Cardiomegaly Primary hypertension ([facility])- Primary Unspecified essential hypertension Gastroesophageal reflux disease, unspecified whether esophagitis present Type 2 diabetes mellitus with complication, with long-term current use of insulin ([facility]) Mixed hyperlipidemia ([facility]) Mixed hyperlipidemia Tobacco user Tobacco use disorder Encounter for screening mammogram for malignant neoplasm of breast Chronic obstructive pulmonary disease, unspecified ([facility]) Other specified chronic obstructive pulmonary disease ([facility]) Anxiety and depression ([facility]) Edema, unspecified Edema Hyperlipidemia, unspecified ([facility]) Diabetic polyneuropathy associated with type 2 diabetes mellitus ([facility]) Gout, unspecified cause, unspecified chronicity, unspecified site Non-seasonal allergic rhinitis, unspecified trigger Bilateral lower extremity edema COPD exacerbation ([facility]) Obstructive chronic bronchitis with exacerbation Pulmonary emphysema, unspecified emphysema type ([facility]/HCC) Venous insufficiency Unspecified venous (peripheral) insufficiency Candidiasis of breast COPD exacerbation ([facility])- Primary Obstructive chronic bronchitis with exacerbation Pulmonary hypertension ([facility]) Other chronic pulmonary heart diseases Class 3 severe obesity with serious comorbidity and body mass index (BMI) of 50.0 to 59.9 in adult, unspecified obesity type (CMS/[facility]) Encounter for subsequent annual wellness [...] (CMS/HCC) Major depressive disorder, single episode, mild ([facility]) (CMS/[facility]) Major depressive disorder, single episode, mild 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 exposed (CMS/[facility]) Chronic respiratory failure, unspecified whether [...] with unspecified complications (CMS/HCC) Anxiety and depression (CMS/[facility]) Gastro-esophageal reflux disease without esophagitis [...] lower extremity (CMS/HCC) PAD (peripheral artery disease) (CMS/[facility]) Unspecified peripheral vascular disease Gastroesophageal reflux disease, unspecified whether esophagitis present Bilateral lower extremity edema Venous ulcer of right leg ([facility]) Type 2 diabetes mellitus with complication, with long-term current use of insulin ([facility]) Tobacco user Tobacco use disorder Encounter for smoking cessation counseling Kidney stone Calculus of kidney Adrenal mass 1 cm to 4 cm in diameter ([facility]) Radiculopathy, lumbar region Thoracic or lumbosacral neuritis or radiculitis, unspecified Non-seasonal allergic rhinitis, unspecified trigger Type 2 diabetes mellitus with unspecified complications ([facility]) Anxiety and depression ([facility])- Primary Morbid (severe) obesity due to excess calories ([facility]) Body mass index (BMI) 50.0-59.9, adult ([facility]) Malignant neoplasm of cervix uteri, unspecified ([facility]) Diabetic polyneuropathy associated with type 2 diabetes mellitus ([facility]) Chronic diastolic heart failure ([facility]) Chronic diastolic heart failure Primary hypertension ([facility]) Unspecified essential hypertension 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 ([facility]) Gastroesophageal reflux disease, unspecified whether esophagitis present Bilateral lower extremity edema Type 2 diabetes mellitus with complication, with long-term current use of insulin ([facility]) Tobacco user Tobacco use disorder Mixed hyperlipidemia ([facility]) Mixed hyperlipidemia Gout, unspecified cause, unspecified chronicity, unspecified site Vitamin deficiency Unspecified vitamin deficiency Gastro-esophageal reflux disease without esophagitis Edema, unspecified Edema Hyperlipidemia, unspecified ([facility]) Encounter for smoking cessation counseling Venous ulcer of right leg ([facility]) Antibiotic-induced yeast infection documented in this encounter [facility] HealthcareEvaluation note* Diagnosis Obstructive sleep apnea- Primary Obstructive sleep apnea (adult) (pediatric) Pulmonary emphysema, unspecified emphysema type ([facility]) Primary hypertension ([facility]) Unspecified essential hypertension Type 2 diabetes mellitus with complication, with long-term current use of insulin ([facility]) Anxiety and depression ([facility]) Bilateral lower extremity edema Pulmonary emphysema, unspecified emphysema type ([facility])- Primary Primary hypertension ([facility]) Unspecified essential hypertension Class 3 severe obesity with serious comorbidity and body mass index (BMI) of 50.0 to 59.9 in adult, unspecified obesity type Obstructive sleep apnea Obstructive sleep apnea (adult) (pediatric) Pulmonary hypertension ([facility]) Other chronic pulmonary heart diseases Tobacco user Tobacco use disorder Cardiomegaly Primary hypertension ([facility])- Primary Unspecified essential hypertension Gastroesophageal reflux disease, unspecified whether esophagitis present Type 2 diabetes mellitus with complication, with long-term current use of insulin ([facility]) Mixed hyperlipidemia ([facility]) Mixed hyperlipidemia Tobacco user Tobacco use disorder Encounter for screening mammogram for malignant neoplasm of breast Chronic obstructive pulmonary disease, unspecified Other specified chronic obstructive pulmonary disease Anxiety and depression ([facility]) Edema, unspecified Edema Hyperlipidemia, unspecified ([facility]) Diabetic polyneuropathy associated with type 2 diabetes mellitus ([facility]) Gout, unspecified cause, unspecified chronicity, unspecified site Non-seasonal allergic rhinitis, unspecified trigger Bilateral lower extremity edema COPD exacerbation ([facility]) Obstructive chronic bronchitis with exacerbation Pulmonary emphysema, unspecified emphysema type ([facility]) Venous insufficiency Unspecified venous (peripheral) insufficiency Candidiasis of breast COPD exacerbation ([facility])- Primary Obstructive chronic bronchitis with exacerbation Pulmonary hypertension ([facility]) Other chronic pulmonary heart diseases Class 3 severe obesity with serious comorbidity and body mass index (BMI) of 50.0 to 59.9 in adult, unspecified obesity type Encounter for subsequent annual wellness visit (AWV) in Medicare patient- Primary Type 2 diabetes mellitus with unspecified complications Pulmonary emphysema, unspecified emphysema type ([facility]) Moderate persistent asthma without complication ([facility]) Primary hypertension ([facility]) Unspecified essential hypertension Type 2 diabetes mellitus with complication, with long-term current use of insulin ([facility]) Class 3 severe obesity with serious comorbidity and body mass index (BMI) of 50.0 to 59.9 in adult, unspecified obesity type Tobacco user Tobacco use disorder Other headache syndrome Malignant neoplasm of cervix uteri, unspecified Other specified disorders of adrenal gland Major depressive disorder, single episode, mild (HCC) ([facility]) Major depressive disorder, single episode, mild 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 exposed Chronic respiratory failure, unspecified whether with hypoxia or hypercapnia Disorder of adrenal gland, unspecified Non-pressure chronic ulcer of other part of right lower leg limited to breakdown of skin ([facility]) Non-recurrent acute suppurative otitis media of left ear without spontaneous rupture of tympanic membrane Primary hypertension ([facility])- Primary Unspecified essential hypertension Insomnia Insomnia, unspecified Type 2 diabetes mellitus with complication, with long-term current use of insulin ([facility]) Non-seasonal allergic rhinitis, unspecified trigger Type 2 diabetes mellitus with unspecified complications Anxiety and depression ([facility]) Gastro-esophageal reflux disease without esophagitis Edema, unspecified Edema Diabetic polyneuropathy associated with type 2 diabetes mellitus ([facility]) Chronic obstructive pulmonary disease, unspecified Pulmonary emphysema, unspecified emphysema type ([facility]) Bilateral lower extremity edema Tobacco user Tobacco use disorder Hyperpigmentation of skin Other dyschromia Primary hypertension ([facility])- Primary Unspecified essential hypertension Diabetic polyneuropathy associated with type 2 diabetes mellitus ([facility]) Pulmonary emphysema, unspecified emphysema type ([facility]) Critical limb ischemia of right lower extremity ([facility]) PAD (peripheral artery disease) ([facility]) Unspecified peripheral vascular disease Gastroesophageal reflux disease, unspecified whether esophagitis present Bilateral lower extremity edema Venous ulcer of right leg ([facility]) Type 2 diabetes mellitus with complication, with long-term current use of insulin ([facility]) Tobacco user Tobacco use disorder Encounter for smoking cessation counseling Kidney stone Calculus of kidney Adrenal mass 1 cm to 4 cm in diameter ([facility]) Radiculopathy, lumbar region Thoracic or lumbosacral neuritis or radiculitis, unspecified Non-seasonal allergic rhinitis, unspecified trigger Type 2 diabetes mellitus with unspecified complications Anxiety and depression ([facility])- Primary Morbid (severe) obesity due to excess calories ([facility]) Body mass index (BMI) 50.0-59.9, adult ([facility]) Malignant neoplasm of cervix uteri, unspecified Diabetic polyneuropathy associated with type 2 diabetes mellitus ([facility]) Chronic diastolic heart failure ([facility]) Chronic diastolic heart failure Primary hypertension ([facility]) Unspecified essential hypertension 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 Gastroesophageal reflux disease, unspecified whether esophagitis present Bilateral lower extremity edema Type 2 diabetes mellitus with complication, with long-term current use of insulin ([facility]) Tobacco user Tobacco use disorder Mixed hyperlipidemia ([facility]) Mixed hyperlipidemia Gout, unspecified cause, unspecified chronicity, unspecified site Vitamin deficiency Unspecified vitamin deficiency Gastro-esophageal reflux disease without esophagitis Edema, unspecified Edema Hyperlipidemia, unspecified ([facility]) Encounter for smoking cessation counseling Venous ulcer of right leg ([facility]) Antibiotic-induced yeast infection Type 2 diabetes mellitus with hyperglycemia, with long-term current use of insulin ([facility])- Primary Encounter for dietary consultation Vitamin D deficiency Primary hypertension ([facility]) Unspecified essential hypertension Insulin long-term use ([facility]) Encounter for long-term (current) use of insulin Hyperlipemia, mixed ([facility]) Mixed hyperlipidemia Microalbuminuria Proteinuria Class 3 severe obesity due to excess calories with serious comorbidity and body mass index (BMI) of 50.0 to 59.9 in adult documented in this encounter [facility] HealthcareEvaluation note* Diagnosis Obstructive sleep apnea- Primary Obstructive sleep apnea (adult) (pediatric) Pulmonary emphysema, unspecified emphysema type ([facility]) Primary hypertension ([facility]) Unspecified essential hypertension Type 2 diabetes mellitus with complication, with long-term current use of insulin ([facility]) Anxiety and depression ([facility]) Bilateral lower extremity edema Pulmonary emphysema, unspecified emphysema type ([facility])- Primary Primary hypertension ([facility]) Unspecified essential hypertension Class 3 severe obesity with serious comorbidity and body mass index (BMI) of 50.0 to 59.9 in adult, unspecified obesity type Obstructive sleep apnea Obstructive sleep apnea (adult) (pediatric) Pulmonary hypertension ([facility]) Other chronic pulmonary heart diseases Tobacco user Tobacco use disorder Cardiomegaly Primary hypertension ([facility])- Primary Unspecified essential hypertension Gastroesophageal reflux disease, unspecified whether esophagitis present Type 2 diabetes mellitus with complication, with long-term current use of insulin ([facility]) Mixed hyperlipidemia ([facility]) Mixed hyperlipidemia Tobacco user Tobacco use disorder Encounter for screening mammogram for malignant neoplasm of breast Chronic obstructive pulmonary disease, unspecified Other specified chronic obstructive pulmonary disease Anxiety and depression ([facility]) Edema, unspecified Edema Hyperlipidemia, unspecified ([facility]) Diabetic polyneuropathy associated with type 2 diabetes mellitus ([facility]) Gout, unspecified cause, unspecified chronicity, unspecified site Non-seasonal allergic rhinitis, unspecified trigger Bilateral lower extremity edema COPD exacerbation ([facility]) Obstructive chronic bronchitis with exacerbation Pulmonary emphysema, unspecified emphysema type ([facility]) Venous insufficiency Unspecified venous (peripheral) insufficiency Candidiasis of breast COPD exacerbation ([facility])- Primary Obstructive chronic bronchitis with exacerbation Pulmonary hypertension ([facility]) Other chronic pulmonary heart diseases Class 3 severe obesity with serious comorbidity and body mass index (BMI) of 50.0 to 59.9 in adult, unspecified obesity type Encounter for subsequent annual wellness visit (AWV) in Medicare patient- Primary Type 2 diabetes mellitus with unspecified complications Pulmonary emphysema, unspecified emphysema type ([facility]) Moderate persistent asthma without complication (CMS/[facility]) Primary hypertension (CMS/[facility]) Unspecified essential hypertension Type 2 diabetes mellitus with complication, with long-term current use of insulin (CMS/[facility]) Class 3 severe obesity with serious comorbidity and body mass index (BMI) of 50.0 to 59.9 in adult, unspecified obesity type Tobacco user Tobacco use disorder Other headache syndrome Malignant neoplasm of cervix uteri, unspecified Other specified disorders of adrenal gland Major depressive disorder, single episode, mild (HCC) (CMS/[facility]) Major depressive disorder, single episode, mild 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 exposed Chronic respiratory failure, unspecified whether with hypoxia or hypercapnia Disorder of adrenal gland, unspecified Non-pressure chronic ulcer of other part of right lower leg limited to breakdown of skin (CMS/[facility]) Non-recurrent acute suppurative otitis media of left ear without spontaneous rupture of tympanic membrane Primary hypertension (CMS/[facility])- Primary Unspecified essential hypertension Insomnia Insomnia, unspecified Type 2 diabetes mellitus with complication, with long-term current use of insulin (CMS/[facility]) Non-seasonal allergic rhinitis, unspecified trigger Type 2 diabetes mellitus with unspecified complications Anxiety and depression ([facility]) Gastro-esophageal reflux disease without esophagitis Edema, unspecified Edema Diabetic polyneuropathy associated with type 2 diabetes mellitus (CMS/[facility]) Chronic obstructive pulmonary disease, unspecified Pulmonary emphysema, unspecified emphysema type (CMS/HCC) Bilateral lower extremity edema Tobacco user Tobacco use disorder Hyperpigmentation of skin Other dyschromia Primary hypertension (CMS/HCC)- Primary Unspecified essential hypertension Diabetic polyneuropathy associated with type 2 diabetes mellitus (CMS/HCC) Pulmonary emphysema, unspecified emphysema type (CMS/HCC) Critical limb ischemia of right lower extremity (CMS/[facility]) PAD (peripheral artery disease) ([facility]) Unspecified peripheral vascular disease Gastroesophageal reflux disease, unspecified whether esophagitis present Bilateral lower extremity edema Venous ulcer of right leg (CMS/[facility]) Type 2 diabetes mellitus with complication, with long-term current use of insulin (CMS/[facility]) Tobacco user Tobacco use disorder Encounter for smoking cessation counseling Kidney stone Calculus of kidney Adrenal mass 1 cm to 4 cm in diameter ([facility]) Radiculopathy, lumbar region Thoracic or lumbosacral neuritis or radiculitis, unspecified Non-seasonal allergic rhinitis, unspecified trigger Type 2 diabetes mellitus with unspecified complications Anxiety and depression ([facility])- Primary Morbid (severe) obesity due to excess calories ([facility]) Body mass index (BMI) 50.0-59.9, adult ([facility]) Malignant neoplasm of cervix uteri, unspecified Diabetic polyneuropathy associated with type 2 diabetes mellitus ([facility]) Chronic diastolic heart failure ([facility]) Chronic diastolic heart failure Primary hypertension ([facility]) Unspecified essential hypertension 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 Gastroesophageal reflux disease, unspecified whether esophagitis present Bilateral lower extremity edema Type 2 diabetes mellitus with complication, with long-term current use of insulin ([facility]) Tobacco user Tobacco use disorder Mixed hyperlipidemia ([facility]) Mixed hyperlipidemia Gout, unspecified cause, unspecified chronicity, unspecified site Vitamin deficiency Unspecified vitamin deficiency Gastro-esophageal reflux disease without esophagitis Edema, unspecified Edema Hyperlipidemia, unspecified ([facility]) Encounter for smoking cessation counseling Venous ulcer of right leg ([facility]) Antibiotic-induced yeast infection Chronic obstructive pulmonary disease, unspecified documented in this encounter [facility] HealthcareEvaluation note* Diagnosis Obstructive sleep apnea- Primary Obstructive sleep apnea (adult) (pediatric) Pulmonary emphysema, unspecified emphysema type ([facility]) Primary hypertension ([facility]) Unspecified essential hypertension Type 2 diabetes mellitus with complication, with long-term current use of insulin ([facility]) Anxiety and depression ([facility]) Bilateral lower extremity edema Pulmonary emphysema, unspecified emphysema type ([facility])- Primary Primary hypertension ([facility]) Unspecified essential hypertension Class 3 severe obesity with serious comorbidity and body mass index (BMI) of 50.0 to 59.9 in adult, unspecified obesity type Obstructive sleep apnea Obstructive sleep apnea (adult) (pediatric) Pulmonary hypertension ([facility]) Other chronic pulmonary heart diseases Tobacco user Tobacco use disorder Cardiomegaly Primary hypertension ([facility])- Primary Unspecified essential hypertension Gastroesophageal reflux disease, unspecified whether esophagitis present Type 2 diabetes mellitus with complication, with long-term current use of insulin ([facility]) Mixed hyperlipidemia ([facility]) Mixed hyperlipidemia Tobacco user Tobacco use disorder Encounter for screening mammogram for malignant neoplasm of breast Chronic obstructive pulmonary disease, unspecified Other specified chronic obstructive pulmonary disease Anxiety and depression ([facility]) Edema, unspecified Edema Hyperlipidemia, unspecified ([facility]) Diabetic polyneuropathy associated with type 2 diabetes mellitus ([facility]) Gout, unspecified cause, unspecified chronicity, unspecified site Non-seasonal allergic rhinitis, unspecified trigger Bilateral lower extremity edema COPD exacerbation ([facility]/HCC) Obstructive chronic bronchitis with exacerbation Pulmonary emphysema, unspecified emphysema type ([facility]/HCC) Venous insufficiency Unspecified venous (peripheral) insufficiency Candidiasis of breast COPD exacerbation ([facility])- Primary Obstructive chronic bronchitis with exacerbation Pulmonary hypertension ([facility]) Other chronic pulmonary heart diseases Class 3 severe obesity with serious comorbidity and body mass index (BMI) of 50.0 to 59.9 in adult, unspecified obesity type Encounter for subsequent annual wellness visit (AWV) in Medicare patient- Primary Type 2 diabetes mellitus with unspecified complications Pulmonary emphysema, unspecified emphysema type ([facility]) Moderate persistent asthma without complication ([facility]) Primary hypertension ([facility]) Unspecified essential hypertension Type 2 diabetes mellitus with complication, with long-term current use of insulin ([facility]) Class 3 severe obesity with serious comorbidity and body mass index (BMI) of 50.0 to 59.9 in adult, unspecified obesity type Tobacco user Tobacco use disorder Other headache syndrome Malignant neoplasm of cervix uteri, unspecified Other specified disorders of adrenal gland Major depressive disorder, single episode, mild (HCC) ([facility]) Major depressive disorder, single episode, mild 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 exposed Chronic respiratory failure, unspecified whether with hypoxia or hypercapnia Disorder of adrenal gland, unspecified Non-pressure chronic ulcer of other part of right lower leg limited to breakdown of skin ([facility]) Non-recurrent acute suppurative otitis media of left ear without spontaneous rupture of tympanic membrane Primary hypertension ([facility])- Primary Unspecified essential hypertension Insomnia Insomnia, unspecified Type 2 diabetes mellitus with complication, with long-term current use of insulin ([facility]) Non-seasonal allergic rhinitis, unspecified trigger Type 2 diabetes mellitus with unspecified complications Anxiety and depression ([facility]) Gastro-esophageal reflux disease without esophagitis Edema, unspecified Edema Diabetic polyneuropathy associated with type 2 diabetes mellitus ([facility]) Chronic obstructive pulmonary disease, unspecified Pulmonary emphysema, unspecified emphysema type (CMS/HCC) Bilateral lower extremity edema Tobacco user Tobacco use disorder Hyperpigmentation of skin Other dyschromia Primary hypertension ([facility])- Primary Unspecified essential hypertension Diabetic polyneuropathy associated with type 2 diabetes mellitus ([facility]) Pulmonary emphysema, unspecified emphysema type ([facility]) Critical limb ischemia of right lower extremity ([facility]) PAD (peripheral artery disease) ([facility]) Unspecified peripheral vascular disease Gastroesophageal reflux disease, unspecified whether esophagitis present Bilateral lower extremity edema Venous ulcer of right leg ([facility]) Type 2 diabetes mellitus with complication, with long-term current use of insulin ([facility]) Tobacco user Tobacco use disorder Encounter for smoking cessation counseling Kidney stone Calculus of kidney Adrenal mass 1 cm to 4 cm in diameter ([facility]) Radiculopathy, lumbar region Thoracic or lumbosacral neuritis or radiculitis, unspecified Non-seasonal allergic rhinitis, unspecified trigger Type 2 diabetes mellitus with unspecified complications Anxiety and depression ([facility])- Primary Morbid (severe) obesity due to excess calories ([facility]) Body mass index (BMI) 50.0-59.9, adult ([facility]) Malignant neoplasm of cervix uteri, unspecified Diabetic polyneuropathy associated with type 2 diabetes mellitus ([facility]) Chronic diastolic heart failure ([facility]) Chronic diastolic heart failure Primary hypertension ([facility]) Unspecified essential hypertension 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 Gastroesophageal reflux disease, unspecified whether esophagitis present Bilateral lower extremity edema Type 2 diabetes mellitus with complication, with long-term current use of insulin ([facility]) Tobacco user Tobacco use disorder Mixed hyperlipidemia ([facility]) Mixed hyperlipidemia Gout, unspecified cause, unspecified chronicity, unspecified site Vitamin deficiency Unspecified vitamin deficiency Gastro-esophageal reflux disease without esophagitis Edema, unspecified Edema Hyperlipidemia, unspecified ([facility]) Encounter for smoking cessation counseling Venous ulcer of right leg ([facility]) Antibiotic-induced yeast infection Primary hypertension ([facility])- Primary Unspecified essential hypertension Diabetic polyneuropathy associated with type 2 diabetes mellitus ([facility]) Chronic diastolic heart failure ([facility]) Chronic diastolic heart failure Bilateral lower extremity edema Morbid (severe) obesity due to excess calories ([facility]) Type 2 diabetes mellitus with complication, with long-term current use of insulin ([facility]) Anxiety and depression ([facility]) Cigarette nicotine dependence without complication Encounter for screening mammogram for malignant neoplasm of breast Insomnia Insomnia, unspecified Non-seasonal allergic rhinitis, unspecified trigger Type 2 diabetes mellitus with unspecified complications Vitamin D deficiency, unspecified Gastro-esophageal reflux disease without esophagitis PAD (peripheral artery disease) ([facility]) Unspecified peripheral vascular disease Gastroesophageal reflux disease, unspecified whether esophagitis present Venous ulcer of right leg ([facility]) documented in this encounter [facility] HealthcareEvaluation note* Diagnosis Obstructive [...] to 59.9 in adult, unspecified obesity type ([facility]) Obstructive sleep apnea Obstructive sleep [...] to 59.9 in adult, unspecified obesity type ([facility]) Encounter for subsequent annual wellness visit (AWV) in Medicare patient- Primary Type 2 diabetes mellitus with unspecified complications (HCC) Pulmonary emphysema, unspecified emphysema type (HCC) Moderate persistent asthma without complication (HCC) Primary hypertension Unspecified essential hypertension Type 2 diabetes mellitus with complication, with long-term current use of insulin ([facility]) Class 3 severe obesity with serious comorbidity and body mass index (BMI) of 50.0 to 59.9 in adult, unspecified obesity type ([facility] Tobacco user Tobacco use disorder Other headache syndrome Malignant neoplasm of cervix uteri, unspecified ([facility]) Other specified disorders of adrenal gland ([facility]) Major depressive disorder, single episode, mild Major depressive disorder, single episode, mild 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 exposed ([facility]) Chronic respiratory failure, unspecified whether with hypoxia or hypercapnia ([facility]) Disorder of adrenal gland, unspecified ([facility]) Non-pressure chronic ulcer of other part of right lower leg limited to breakdown of skin ([facility]) Non-recurrent acute suppurative otitis media of left ear without spontaneous rupture of tympanic membrane Primary hypertension- Primary Unspecified essential hypertension Insomnia Insomnia, unspecified Type 2 diabetes mellitus with complication, with long-term current use of insulin ([facility]) Non-seasonal allergic rhinitis, unspecified trigger Type 2 diabetes mellitus with unspecified complications ([facility]) Anxiety and depression Gastro-esophageal reflux disease without esophagitis Edema, unspecified Edema Diabetic polyneuropathy associated with type 2 diabetes mellitus ([facility]) Chronic obstructive pulmonary disease, unspecified ([facility]) Pulmonary emphysema, unspecified emphysema type ([facility]) Bilateral lower extremity edema Tobacco user Tobacco use disorder Hyperpigmentation of skin Other dyschromia Primary hypertension- Primary Unspecified essential hypertension Diabetic polyneuropathy associated with type 2 diabetes mellitus ([facility]) Pulmonary emphysema, unspecified emphysema type ([facility]) Critical limb ischemia of right lower extremity ([facility]) PAD (peripheral artery disease) Unspecified peripheral vascular disease Gastroesophageal reflux disease, unspecified whether esophagitis present Bilateral lower extremity edema Venous ulcer of right leg ([facility]) Type 2 diabetes mellitus with complication, with long-term current use of insulin ([facility]) Tobacco user Tobacco use disorder Encounter for smoking cessation counseling Kidney stone Calculus of kidney Adrenal mass 1 cm to 4 cm in diameter ([facility]) Radiculopathy, lumbar region Thoracic or lumbosacral neuritis or radiculitis, unspecified Non-seasonal allergic rhinitis, unspecified trigger Type 2 diabetes mellitus with unspecified complications ([facility]) Anxiety and depression- Primary Morbid (severe) obesity due to excess calories ([facility]) Body mass index (BMI) 50.0-59.9, adult ([facility]) Malignant neoplasm of cervix uteri, [...] Morbid (severe) obesity due to excess calories ([facility]) Type 2 diabetes mellitus with complication, with long-term current use of insulin ([facility]) Anxiety and depression Cigarette nicotine [...] of left lower extremity- Primary COPD exacerbation ([facility]) Obstructive chronic bronchitis with exacerbation Primary hypertension Unspecified essential hypertension Pulmonary hypertension (HCC) Other chronic pulmonary heart diseases Morbid (severe) obesity due to excess calories ([facility]) Type 2 diabetes mellitus with complication, with long-term current use of insulin ([facility]) Anxiety and depression Fever, unspecified fever cause Hyperlipidemia, unspecified Tobacco user Tobacco use disorder Encounter for smoking cessation counseling documented in this encounter [facility] HealthcareEvaluation note* Diagnosis Obstructive sleep apnea- Primary Obstructive sleep apnea (adult) (pediatric) Pulmonary emphysema, unspecified emphysema type ([facility]) Primary hypertension ([facility]) Unspecified essential hypertension Type 2 diabetes mellitus with complication, with long-term current use of insulin ([facility]) Anxiety and depression ([facility]) Bilateral lower extremity edema Pulmonary emphysema, unspecified emphysema type ([facility])- Primary Primary hypertension ([facility]) Unspecified essential hypertension Class 3 severe obesity with serious comorbidity and body mass index (BMI) of 50.0 to 59.9 in adult, unspecified obesity type Obstructive sleep apnea Obstructive sleep apnea (adult) (pediatric) Pulmonary hypertension ([facility]) Other chronic pulmonary heart diseases Tobacco user Tobacco use disorder Cardiomegaly Primary hypertension ([facility])- Primary Unspecified essential hypertension Gastroesophageal reflux disease, unspecified whether esophagitis present Type 2 diabetes mellitus with complication, with long-term current use of insulin ([facility]) Mixed hyperlipidemia ([facility]) Mixed hyperlipidemia Tobacco user Tobacco use disorder Encounter for screening mammogram for malignant neoplasm of breast Chronic obstructive pulmonary disease, unspecified Other specified chronic obstructive pulmonary disease Anxiety and depression ([facility]) Edema, unspecified Edema Hyperlipidemia, unspecified ([facility]) Diabetic polyneuropathy associated with type 2 diabetes mellitus ([facility]) Gout, unspecified cause, unspecified chronicity, unspecified site Non-seasonal allergic rhinitis, unspecified trigger Bilateral lower extremity edema COPD exacerbation ([facility]) Obstructive chronic bronchitis with exacerbation Pulmonary emphysema, unspecified emphysema type ([facility]) Venous insufficiency Unspecified venous (peripheral) insufficiency Candidiasis of breast COPD exacerbation ([facility])- Primary Obstructive chronic bronchitis with exacerbation Pulmonary hypertension ([facility]) Other chronic pulmonary heart diseases Class 3 severe obesity with serious comorbidity and body mass index (BMI) of 50.0 to 59.9 in adult, unspecified obesity type Encounter for subsequent annual wellness visit (AWV) in Medicare patient- Primary Type 2 diabetes mellitus with unspecified complications Pulmonary emphysema, unspecified emphysema type ([facility]) Moderate persistent asthma without complication ([facility]) Primary hypertension ([facility]) Unspecified essential hypertension Type 2 diabetes mellitus with complication, with long-term current use of insulin ([facility]) Class 3 severe obesity with serious comorbidity and body mass index (BMI) of 50.0 to 59.9 in adult, unspecified obesity type Tobacco user Tobacco use disorder Other headache syndrome Malignant neoplasm of cervix uteri, unspecified Other specified disorders of adrenal gland Major depressive disorder, single episode, mild (HCC) ([facility]) Major depressive disorder, single episode, mild 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 exposed Chronic respiratory failure, unspecified whether with hypoxia or hypercapnia Disorder of adrenal gland, unspecified Non-pressure chronic ulcer of other part of right lower leg limited to breakdown of skin ([facility]) Non-recurrent acute suppurative otitis media of left ear without spontaneous rupture of tympanic membrane Primary hypertension ([facility])- Primary Unspecified essential hypertension Insomnia Insomnia, unspecified Type 2 diabetes mellitus with complication, with long-term current use of insulin ([facility]) Non-seasonal allergic rhinitis, unspecified trigger Type 2 diabetes mellitus with unspecified complications Anxiety and depression ([facility]) Gastro-esophageal reflux disease without esophagitis Edema, unspecified Edema Diabetic polyneuropathy associated with type 2 diabetes mellitus ([facility]) Chronic obstructive pulmonary disease, unspecified Pulmonary emphysema, unspecified emphysema type ([facility]) Bilateral lower extremity edema Tobacco user Tobacco use disorder Hyperpigmentation of skin Other dyschromia Primary hypertension ([facility])- Primary Unspecified essential hypertension Diabetic polyneuropathy associated with type 2 diabetes mellitus ([facility]) Pulmonary emphysema, unspecified emphysema type ([facility]) Critical limb ischemia of right lower extremity ([facility]) PAD (peripheral artery disease) ([facility]) Unspecified peripheral vascular disease Gastroesophageal reflux disease, unspecified whether esophagitis present Bilateral lower extremity edema Venous ulcer of right leg ([facility]) Type 2 diabetes mellitus with complication, with long-term current use of insulin ([facility]) Tobacco user Tobacco use disorder Encounter for smoking cessation counseling Kidney stone Calculus of kidney Adrenal mass 1 cm to 4 cm in diameter ([facility]) Radiculopathy, lumbar region Thoracic or lumbosacral neuritis or radiculitis, unspecified Non-seasonal allergic rhinitis, unspecified trigger Type 2 diabetes mellitus with unspecified complications Anxiety and depression ([facility])- Primary Morbid (severe) obesity due to excess calories ([facility]) Body mass index (BMI) 50.0-59.9, adult ([facility]) Malignant neoplasm of cervix uteri, unspecified Diabetic polyneuropathy associated with type 2 diabetes mellitus ([facility]) Chronic diastolic heart failure ([facility]) Chronic diastolic heart failure Primary hypertension ([facility]) Unspecified essential hypertension 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 Gastroesophageal reflux disease, unspecified whether esophagitis present Bilateral lower extremity edema Type 2 diabetes mellitus with complication, with long-term current use of insulin ([facility]) Tobacco user Tobacco use disorder Mixed hyperlipidemia ([facility]) Mixed hyperlipidemia Gout, unspecified cause, unspecified chronicity, unspecified site Vitamin deficiency Unspecified vitamin deficiency Gastro-esophageal reflux disease without esophagitis Edema, unspecified Edema Hyperlipidemia, unspecified ([facility]) Encounter for smoking cessation counseling Venous ulcer of right leg ([facility]) Antibiotic-induced yeast infection Primary hypertension ([facility])- Primary Unspecified essential hypertension Diabetic polyneuropathy associated with type 2 diabetes mellitus ([facility]) Chronic diastolic heart failure ([facility]) Chronic diastolic heart failure Bilateral lower extremity edema Morbid (severe) obesity due to excess calories ([facility]) Type 2 diabetes mellitus with complication, with long-term current use of insulin ([facility]) Anxiety and depression ([facility]) Cigarette nicotine dependence without complication Encounter for screening mammogram for malignant neoplasm of breast Insomnia Insomnia, unspecified Non-seasonal allergic rhinitis, unspecified trigger Type 2 diabetes mellitus with unspecified complications Vitamin D deficiency, unspecified Gastro-esophageal reflux disease without esophagitis PAD (peripheral artery disease) ([facility]) Unspecified peripheral vascular disease Gastroesophageal reflux disease, unspecified whether esophagitis present Venous ulcer of right leg ([facility]) Cellulitis of left lower extremity- Primary COPD exacerbation ([facility]) Obstructive chronic bronchitis with exacerbation Primary hypertension ([facility]) Unspecified essential hypertension Pulmonary hypertension ([facility]) Other chronic pulmonary heart diseases Morbid (severe) obesity due to excess calories ([facility]) Type 2 diabetes mellitus with complication, with long-term current use of insulin ([facility]) Anxiety and depression ([facility]) Fever, unspecified fever cause documented in this encounter [facility] HealthcareEvaluation note* Diagnosis Obstructive sleep apnea- Primary Obstructive sleep apnea (adult) (pediatric) Pulmonary emphysema, unspecified emphysema type (HCC) Primary hypertension Unspecified essential hypertension Type 2 diabetes mellitus with complication, with long-term current use of insulin ([facility]) Anxiety and depression Bilateral lower extremity edema Pulmonary emphysema, unspecified emphysema type (HCC)- Primary Primary hypertension Unspecified essential hypertension Class 3 severe obesity with serious comorbidity and body mass index (BMI) of 50.0 to 59.9 in adult, unspecified obesity type ([facility]) Obstructive sleep apnea Obstructive sleep [...] polyneuropathy associated with type 2 diabetes mellitus ([facility]) Gout, unspecified cause, unspecified chronicity, unspecified site Non-seasonal allergic rhinitis, unspecified trigger Bilateral lower extremity edema COPD exacerbation (HCC) Obstructive chronic bronchitis with exacerbation Pulmonary emphysema, unspecified emphysema type (HCC) Venous insufficiency Unspecified venous (peripheral) insufficiency Candidiasis of breast COPD exacerbation (HCC)- Primary Obstructive chronic bronchitis with exacerbation Pulmonary hypertension ([facility]) Other chronic pulmonary heart diseases Class 3 severe obesity with serious comorbidity and body mass index (BMI) of 50.0 to 59.9 in adult, unspecified obesity type ([facility] Encounter for subsequent annual wellness visit (AWV) in Medicare patient- Primary Type 2 diabetes mellitus with unspecified complications ([facility]) Pulmonary emphysema, unspecified emphysema type ([facility]) Moderate persistent asthma without complication ([facility]) Primary hypertension Unspecified essential hypertension Type 2 diabetes mellitus with complication, with long-term current use of insulin ([facility]) Class 3 severe obesity with serious comorbidity and body mass index (BMI) of 50.0 to 59.9 in adult, unspecified obesity type ([facility] Tobacco user Tobacco use disorder Other headache syndrome Malignant neoplasm of cervix uteri, unspecified (HCC) Other specified disorders of adrenal gland ([facility]) Major depressive disorder, single episode, mild Major depressive disorder, single episode, mild 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 exposed ([facility]) Chronic respiratory failure, unspecified whether [...] Critical limb ischemia of right lower extremity ([facility]) PAD (peripheral artery disease) Unspecified peripheral vascular disease Gastroesophageal reflux disease, unspecified whether esophagitis present Bilateral lower extremity edema Venous ulcer of right leg (HCC) Type 2 diabetes mellitus with complication, with long-term current use of insulin ([facility]) Tobacco user Tobacco use disorder Encounter for smoking cessation counseling Kidney stone Calculus of kidney Adrenal mass 1 cm to 4 cm in diameter ([facility]) Radiculopathy, lumbar region Thoracic or lumbosacral neuritis or radiculitis, unspecified Non-seasonal allergic rhinitis, unspecified trigger Type 2 diabetes mellitus with unspecified complications ([facility]) Anxiety and depression- Primary Morbid (severe) obesity due to excess calories ([facility]) Body mass index (BMI) 50.0-59.9, adult ([facility]) Malignant neoplasm of cervix uteri, unspecified ([facility]) Diabetic polyneuropathy associated with type 2 diabetes mellitus ([facility]) Chronic diastolic heart failure (HCC) Chronic diastolic heart failure Primary hypertension Unspecified essential hypertension 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 ([facility]) Gastroesophageal reflux disease, unspecified whether esophagitis present Bilateral lower extremity edema Type 2 diabetes mellitus with complication, with long-term current use of insulin ([facility]) Tobacco user Tobacco use disorder [...] Morbid (severe) obesity due to excess calories ([facility]) Type 2 diabetes mellitus with complication, with long-term current use of insulin ([facility]) Anxiety and depression Cigarette nicotine [...] Morbid (severe) obesity due to excess calories ([facility]) Type 2 diabetes mellitus with [...] Morbid (severe) obesity due to excess calories ([facility]) Type 2 diabetes mellitus with hyperglycemia, with long-term current use of insulin (HCC) documented in this encounter [facility] HealthcareEvaluation note* Diagnosis Obstructive sleep apnea- [...] to 59.9 in adult, unspecified obesity type ([facility]) Obstructive sleep apnea Obstructive sleep [...] to 59.9 in adult, unspecified obesity type ([facility]) Encounter for subsequent annual wellness visit (AWV) in Medicare patient- Primary Type 2 diabetes mellitus with unspecified complications (HCC) Pulmonary emphysema, unspecified emphysema type ([facility]) Moderate persistent asthma without complication (HCC) Primary hypertension Unspecified essential hypertension Type 2 diabetes mellitus with complication, with long-term current use of insulin ([facility]) Class 3 severe obesity with serious comorbidity and body mass index (BMI) of 50.0 to 59.9 in adult, unspecified obesity type ([facility]) Tobacco user Tobacco use disorder Other headache syndrome Malignant neoplasm of cervix uteri, unspecified (HCC) Other specified disorders of adrenal gland (HCC) Major depressive disorder, single episode, mild Major depressive disorder, single episode, mild 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 exposed ([facility]) Chronic respiratory failure, unspecified whether [...] Critical limb ischemia of right lower extremity ([facility]) PAD (peripheral artery disease) Unspecified [...] 1 cm to 4 cm in diameter ([facility]) Radiculopathy, lumbar region Thoracic or lumbosacral neuritis or radiculitis, unspecified Non-seasonal allergic rhinitis, unspecified trigger Type 2 diabetes mellitus with unspecified complications ([facility]) Anxiety and depression- Primary Morbid (severe) obesity due to excess calories ([facility]) Body mass index (BMI) 50.0-59.9, adult ([facility]) Malignant neoplasm of cervix uteri, unspecified ([facility]) Diabetic polyneuropathy associated with type 2 diabetes mellitus (HCC) Chronic diastolic heart failure (HCC) Chronic diastolic heart failure Primary hypertension Unspecified essential hypertension 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 ([facility]) Gastroesophageal reflux disease, unspecified whether esophagitis present Bilateral lower extremity edema Type 2 diabetes mellitus with complication, with long-term current use of insulin ([facility]) Tobacco user Tobacco use disorder [...] Morbid (severe) obesity due to excess calories ([facility]) Type 2 diabetes mellitus with complication, with long-term current use of insulin ([facility]) Anxiety and depression Cigarette nicotine [...] calories ([facility] Type 2 diabetes mellitus with complication, with long-term current use of insulin ([facility]) Anxiety and depression Fever, unspecified fever cause Encounter for subsequent annual wellness visit (AWV) in Medicare patient- Primary Mixed hyperlipidemia Mixed hyperlipidemia Type 2 diabetes mellitus with complication, with long-term current use of insulin ([facility]) Bilateral lower extremity edema Gastro-esophageal reflux disease without esophagitis Chronic diastolic heart failure (HCC) Chronic diastolic heart failure Primary hypertension Unspecified essential hypertension Pulmonary hypertension (HCC) Other chronic pulmonary heart diseases Diabetic polyneuropathy associated with type 2 diabetes mellitus ([facility]) Pulmonary emphysema, unspecified emphysema type ([facility]) Moderate persistent asthma without complication ([facility]) Insomnia Insomnia, unspecified Non-seasonal allergic rhinitis, unspecified trigger Type 2 diabetes mellitus with unspecified complications ([facility]) Anxiety and depression Antibiotic-induced yeast infection Chronic obstructive pulmonary disease, unspecified ([facility]) Hyperlipidemia, unspecified Vaginal yeast infection Candidiasis of vulva and vagina Morbid (severe) obesity due to excess calories ([facility] Encounter for dietary consultation- Primary Type 2 diabetes mellitus with hyperglycemia, with long-term current use of insulin ([facility]) Vitamin D deficiency Primary hypertension Unspecified essential hypertension Insulin long-term use ([facility]) Encounter for long-term (current) use of insulin Hyperlipemia, mixed Mixed hyperlipidemia Microalbuminuria Proteinuria Class 3 severe obesity due to excess calories with serious comorbidity and body mass index (BMI) of 50.0 to 59.9 in adult ([facility] documented in this encounter [facility] HealthcareEvaluation note* Diagnosis Obstructive sleep apnea- Primary Obstructive sleep apnea (adult) (pediatric) Pulmonary emphysema, unspecified emphysema type ([facility]) Primary hypertension Unspecified essential hypertension Type 2 diabetes mellitus with complication, with long-term current use of insulin ([facility]) Anxiety and depression Bilateral lower extremity edema Pulmonary emphysema, unspecified emphysema type (HCC)- Primary Primary hypertension Unspecified essential hypertension Class 3 severe obesity with serious comorbidity and body mass index (BMI) of 50.0 to 59.9 in adult, unspecified obesity type ([facility]) Obstructive sleep apnea Obstructive sleep apnea (adult) [...] to 59.9 in adult, unspecified obesity type ([facility]) Encounter for subsequent annual wellness visit (AWV) [...] to 59.9 in adult, unspecified obesity type ([facility] Tobacco user Tobacco use disorder Other headache [...] complication, with long-term current use of insulin ([facility]) Non-seasonal allergic rhinitis, unspecified trigger Type 2 diabetes mellitus with unspecified complications (HCC) Anxiety and depression Gastro-esophageal reflux disease without esophagitis Edema, unspecified Edema Diabetic polyneuropathy associated with type 2 diabetes mellitus ([facility]) Chronic obstructive pulmonary disease, unspecified (HCC) Pulmonary emphysema, unspecified emphysema type (HCC) Bilateral lower extremity edema Tobacco user Tobacco use disorder Hyperpigmentation of skin Other dyschromia Primary hypertension- Primary Unspecified essential hypertension Diabetic polyneuropathy associated with type 2 diabetes mellitus ([facility]) Pulmonary emphysema, unspecified emphysema type ([facility]) Critical limb ischemia of right lower extremity ([facility]) PAD (peripheral artery disease) Unspecified peripheral vascular disease Gastroesophageal reflux disease, unspecified whether esophagitis present Bilateral lower extremity edema Venous ulcer of right leg ([facility]) Type 2 diabetes mellitus with complication, with long-term current use of insulin ([facility]) Tobacco user Tobacco use disorder Encounter for smoking cessation counseling Kidney stone Calculus of kidney Adrenal mass 1 cm to 4 cm in diameter ([facility]) Radiculopathy, lumbar region Thoracic or lumbosacral neuritis or radiculitis, unspecified Non-seasonal allergic rhinitis, unspecified trigger Type 2 diabetes mellitus with unspecified complications ([facility]) Anxiety and depression- Primary Morbid (severe) obesity due to excess calories ([facility] Body mass index (BMI) 50.0-59.9, adult ([facility]) Malignant neoplasm of cervix uteri, unspecified ([facility]) Diabetic polyneuropathy associated with type 2 diabetes mellitus ([facility]) Chronic diastolic heart failure (HCC) Chronic diastolic heart failure Primary hypertension Unspecified essential hypertension 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 ([facility]) Gastroesophageal reflux disease, unspecified whether esophagitis present Bilateral lower extremity edema Type 2 diabetes mellitus with complication, with long-term current use of insulin ([facility]) Tobacco user Tobacco use disorder Mixed hyperlipidemia Mixed hyperlipidemia Gout, unspecified cause, unspecified chronicity, unspecified site Vitamin deficiency Unspecified vitamin deficiency Gastro-esophageal reflux disease without esophagitis Edema, unspecified Edema Hyperlipidemia, unspecified Encounter for smoking cessation counseling Venous ulcer of right leg ([facility]) Antibiotic-induced yeast infection Primary hypertension- Primary Unspecified essential hypertension Diabetic polyneuropathy associated with type 2 diabetes mellitus (HCC) Chronic diastolic heart failure (HCC) Chronic diastolic heart failure Bilateral lower extremity edema Morbid (severe) obesity due to excess calories ([facility]) Type 2 diabetes mellitus with [...] Morbid (severe) obesity due to excess calories ([facility]) Type 2 diabetes mellitus with [...] Morbid (severe) obesity due to excess calories ([facility]) Tobacco user Tobacco use disorder Encounter for smoking cessation counseling documented in this encounter [facility] HealthcareHistory general Narrative - Reported* Type Description [...] History sepsis 2010 Hospitalization History SEE ABOVE [facility] Other Hospital course Narrative No data available for this section [facility] progress note No data available for this section [facility] reason for referral (narrative) , Referral to Dr. 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 Advance Directives and Living Will Power of Blasting Entryman Summary Purpose Family History No Family History Records FoundNo Family History Records FoundNo Family History Records FoundNo Family History Records Found No data available for this section No Family History Records FoundNo Family History Records FoundNo Family History Records Found Additional Source Comments INFORMATION SOURCE (unrecogn ized section and content) DATE CREATED AUTHOR 10/30/2019 [employer] DATE CREATED AUTHOR AUTHOR'S ORGANIZ ATION 09/15/2020 [facility] DATE CREATED AUTHOR AUTHOR'S ORGANIZ ATION 12/19/2022 [facility] DATE CREATED AUTHOR AUTHOR'S ORGANIZ ATION 06/03/[address] [facility] DATE CREATED AUTHOR AUTHOR'S ORGANIZ ATION 01/30/2025 [facility] EPIC DATE CREATED AUTHOR AUTHOR'S ORGANIZ ATION 02/06/2025 [facility] DATE CREATED AUTHOR AUTHOR'S ORGANIZ ATION 03/13/2025 [facility] Care Team (unrecognized sect ion and content) Credit Risk Officer Relationship Specialty Start Date End Date Ty Amin MD PCP - General Family Medicine 01/05/23 Credit Risk Officer Relationship Specialty Start Date End Date Ty Amin MD PCP - General Family Medicine 01/05/23 Credit Risk Officer Relationship Specialty Start Date End Date Ty Amin MD [address] [place] [phone] PCP - General Family Medicine 09/20/23 Mckayla Blas NP [address] [place] [phone] PCP - [facility] 09/07/23 09/05/90 Mckayla Blas NP [address] [place] [phone] Nurse Practitioner Family Medicine 09/20/23 Credit Risk Officer Relationship Specialty Start Date End Date Ty Amin MD [address] [place] [phone] PCP - General Family Medicine 09/20/23 Mckayla Blas NP [address] [place] [address] [facility] 09/07/23 09/05/90 Mckayla Blas NP [address] [place] [address] Nurse Practitioner Family Medicine 09/20/23 Credit Risk Officer Relationship Specialty Start Date End Date Ty Amin MD [address] [place] [phone] PCP - General Family Medicine 09/20/23 Mckayla Blas NP [address] [place] [address] [facility] 09/07/23 09/05/90 Mckayla Blas NP [address] [place] [phone] Nurse Practitioner Family Medicine 09/20/23 Credit Risk Officer Relationship Specialty Start Date End Date Ty Amin MD [address] [place] [phone] PCP - General Family Medicine 09/20/23 Mckayla Blas NP [address] [place] [phone] PCP - [facility] 09/07/23 09/05/90 Mckayla Blas NP [address] [place] [address] Nurse Practitioner Family Medicine 09/20/23 Credit Risk Officer Relationship Specialty Start Date End Date Ty Amin MD [address] [place] [phone] PCP - General Family Medicine 09/20/23 Mckayla Blas NP [address] [place] [phone] PCP - [facility] 09/07/23 09/05/90 Mckayla Blas NP [address] [place] [address] Nurse Practitioner Family Medicine 09/20/23 Credit Risk Officer Relationship Specialty Start Date End Date Ty Amin MD [address] [place] [phone] PCP - General Family Medicine 09/20/23 Mckayla Blas NP [address] [place] [address] PCP - [facility] 09/07/23 09/05/90 Mckayla Blas NP [address] [place] [address] Nurse Practitioner Family Medicine 09/20/23 Credit Risk Officer Relationship Specialty Start Date End Date Ty Amin MD [address] [place] [phone] PCP - General Family Medicine 09/20/23 Mckayla Blas NP [address] [place] [address] [facility] 09/07/23 09/05/90 Mckayla Blas NP [address] [place] [address] Nurse Practitioner Family Medicine 09/20/23 Credit Risk Officer Relationship Specialty Start Date End Date Ty Amin MD [address] [place] [address] PCP - General Family Medicine 09/20/23 Mckayla Blas NP [address] [place] [address] [facility] 09/07/23 09/05/90 Mckayla Blas NP [address] [place] [address] Nurse Practitioner Family Medicine 09/20/23 Credit Risk Officer Relationship Specialty Start Date End Date Ty Amin MD [address] [place] [phone] PCP - General Family Medicine 09/20/23 Mckayla Blas NP [address] [place] [phone] PCP - [facility] 09/07/23 09/05/90 Mckayla Blas NP [address] [place] [address] Nurse Practitioner Family Medicine 09/20/23 Credit Risk Officer Relationship Specialty Start Date End Date Ty Amin MD [address] [place] [address] PCP - General Family Medicine 09/20/23 Mckayla Blas NP [address] [place] [address] PCP - [facility] 09/07/23 09/05/90 Mckayla Blas NP [address] [place] [address] Nurse Practitioner Family Medicine 09/20/23 Credit Risk Officer Relationship Specialty Start Date End Date Ty Amin MD [address] [place] [address] PCP - General Family Medicine 09/20/23 Mckayla Blas NP [address] [place] [address] PCP - [facility] 09/07/23 09/05/90 Mckayla Blas NP [address] [place] [address] Nurse Practitioner Family Medicine 09/20/23 Credit Risk Officer Relationship Specialty Start Date End Date Ty Amin MD [address] [place] [phone] PCP - General Family Medicine 09/20/23 Mckayla Blas NP [address] [place] [address] [facility] 09/07/23 09/05/90 Mckayla Blas NP [address] [place] [address] Nurse Practitioner Family Medicine 09/20/23 Credit Risk Officer Relationship Specialty Start Date End Date Ty Amin MD [address] [place] [address] PCP - General Family Medicine 09/20/23 Mckayla Blas NP [address] [place] [address] [facility] 09/07/23 09/05/90 Mckayla Blas NP [address] [place] [address] Nurse Practitioner Family Medicine 09/20/23 Credit Risk Officer Relationship Specialty Start Date End Date Ty Amin MD [address] [place] [address] PCP - General Family Medicine 09/20/23 Mckayla Blas NP [address] [place] [address] PCP - [facility] 09/07/23 09/05/90 Mckayla Blas NP [address] [place] [address] Nurse Practitioner Family Medicine 09/20/23 Credit Risk Officer Relationship Specialty Start Date End Date Ty Amin MD [address] [place] [address] PCP - General Family Medicine 09/20/23 Mckayla Blas NP [address] [place] [address] PCP - [facility] 09/07/23 09/05/90 Mckayla Blas NP [address] [place] [address] Nurse Practitioner Family Medicine 09/20/23 Credit Risk Officer Relationship Specialty Start Date End Date Ty Amin MD [address] [place] [address] PCP - General Family Medicine 09/20/23 Mckayla Blas NP [address] [place] [address] PCP - [facility] 09/07/23 09/05/90 Mckayla Blas NP [address] [place] [address] Nurse Practitioner Family Medicine 09/20/23 Credit Risk Officer Relationship Specialty Start Date End Date Ty Amin MD [address] [place] [address] PCP - General Family Medicine 09/20/23 Mckayla Blas NP [address] [place] [address] [facility] 09/07/23 09/05/90 Mckayla Blas NP [address] [place] [address] Nurse Practitioner Family Medicine 09/20/23 Credit Risk Officer Relationship Specialty Start Date End Date Ty Amin MD [address] [place] [address] PCP - General Family Medicine 09/20/23 Mckayla Blas NP [address] [place] [address] [facility] 09/07/23 09/05/90 Mckayla Blas NP [address] [place] [address] Nurse Practitioner Family Medicine 09/20/23 Credit Risk Officer Relationship Specialty Start Date End Date Ty Amin MD [address] [place] [address] PCP - General Family Medicine 09/20/23 Mckayla Blas NP [address] [place] [address] PCP - [facility] 09/07/23 09/05/90 Mckayla Blas NP [address] [place] [address] Nurse Practitioner Family Medicine 09/20/23 Credit Risk Officer Relationship Specialty Start Date End Date Ty Amin MD [address] [place] [address] PCP - General Family Medicine 09/20/23 Mckayla Blas NP [address] [place] [address] PCP - [facility] 09/07/23 09/05/90 Mckayla Blas NP [address] [place] [address] Nurse Practitioner Family Medicine 09/20/23 Credit Risk Officer Relationship Specialty Start Date End Date Ty Amin MD [address] [place] [address] PCP - General Family Medicine 09/20/23 Mckayla Blas NP [address] [place] [address] Nurse Practitioner Family Medicine 09/20/23 Credit Risk Officer Relationship Specialty Start Date End Date Ty Amin MD [address] [place] [address] PCP - General Family Medicine 09/20/23 Mckayla Blas NP [address] [place] [address] Nurse Practitioner Family Medicine 09/20/23 Credit Risk Officer Relationship Specialty Start Date End Date Ty Amin MD [address] [place] [address] PCP - General Family Medicine 09/20/23 Mckayla Blas NP [address] [place] [address] Nurse Practitioner Family Medicine 09/20/23 Credit Risk Officer Relationship Specialty Start Date End Date Ty Amin MD [address] [place] [address] PCP - General Family Medicine 09/20/23 Mckayla Blas NP [address] [place] [address] Nurse Practitioner Family Medicine 09/20/23 Credit Risk Officer Relationship Specialty Start Date End Date Ty Amin MD [address] [place] [address] PCP - General Family Medicine 09/20/23 Mckayla Blas NP [address] [place] [address] Nurse Practitioner Family Medicine 09/20/23 REASON FOR [...] BE BASED ON THE PRIMARY CLINICAL RECORDS. [employer]. provides no warranty or guarantee of the accuracy or completeness of information in this document.
== END 2025-03-16 11:01 | disposition home or self-care (01) ==
LOC: WC 03-17 14:25
PROVIDERS: PCP Nurse Practitioner; Visit Provider Physician Assistant
DX: I87.311 Chronic venous hypertension (idiopathic) with ulcer of right lower extremity (principal); L97.812 Non-pressure chronic ulcer of other part of right lower leg with fat layer exposed
CPT/HCPCS: 29581

== ENCOUNTER 2025-03-20 10:00 | Outpatient (OUT) | payer MEDICARE, SELFPAY ==
--- OUTSIDE RECORDS SUMMARY | 2025-03-23 10:11 | XMS_ITS | Clinical Summary ---
Author Organization [employer] tem Address [id number] [address] [place] [address] Care Team Providers Care Technical Support Representative Name Role Phone Wan Mckayla Krystal PEREZN-PLANT PROTECTION SUPERVISOR Primary Care Provider Allergies No known active [...] Medical Devices Not on file Insurance [place]ICAID [place] [employer] MEDICARE Care Teams Technical Support Representative Relationship Specialty Start Date End Date Mckayla Blas APRN-PLANT PROTECTION SUPERVISOR [address] [place] [address] PCP - General Nurse Practitioner 09/25/18
--- OUTSIDE RECORDS SUMMARY | 2025-03-23 10:11 | XMS_ITS | Encounter Summary ---
Author Organization [facility] Address [address] [place] [address] Care Team Providers Care Assembler Small Products Name Role Phone Ty Amin MD Primary Care Provider [phone] Ty Amin MD Primary Care Provider [phone] Mckayla Blas ZONING ASSISTANT Unavailable [phone] Mckayla Blas ZONING ASSISTANT Unavailable [phone] Encounter Details Date Type Department Care Team (Late st Contact Info) Description 08/31/2023 Clinisync Result Encounter [facility] External Department Unsolicited Andra Alcala PA [address] [place] [address] [address] [place], [place] [id number] Social History Tobacco Use Types Packs/Day Years [...] Recorded Patient Health Questionnaire-2 Score 2 07/10/2023 [facility] - Occupational Stress Questionnaire [...] [facility] [address] [place] [address] Rain Souza MD [address] [place] [address] documented as of this encounter Procedures Procedure [...] PM EST 09/10/2023 2:29 PM EST Narrative [facility] - 09/16/2023 1:07 PM EDT us Generic External Data Provider LAB BLOOD ORDERAB LES Final Result Performing Organization Address City/[facility]/ZIP Co de Phone Number [facility] * BLOOD CULTURE 1 (09/10/2023 2:05 PM EST) Pathologist [facility] BLOOD CULTURE 1 Blood Culture 1 NG5D NO GROWTH AT 5 DAYS.^NO GROWTH AT 5 DAYS. [facility] 09/10/2023 2:05 PM EST 09/10/2023 2:28 PM EST Narrative [facility] - 09/16/2023 1:07 PM EDT us Generic External Data Provider LAB BLOOD ORDERAB LES Final Result Performing Organization Address [facility] de Phone Number [facility] * ECG 12-LEAD (08/31/2023 6:08 PM EST) Anatomical Region Laterality Modality Other 08/31/2023 6:08 PM EST Narrative 09/02/2023 7:32 [place] [address] Electrocardiograph Report Signed Patient: MITZI MACIAS MR#: [id number] : 1970 Acct:[id number] Age/Sex: 53 / F ADM Date: 08/31/23 Loc: [place] 214-[address]: Jacqueline Becerra D.O. 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 Signed By: 09/02/23731 DD/ 07 TD/TT: Coding Spec: Procedure Note Radiology, Radiologist, MD - 09/02/2023 [place] [address] Electrocardiograph Report Signed Patient: MITZI MACIAS LMR#: [id number] : 1970Acct:[id number] Age/Sex: 53 / FADM Date: 08/31/23 Loc: [place] 214-[address]: Jacqueline Becerra D.O. 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 Signed By:09/02/23731 DD/ 07 TD/TT: Coding Spec: Andra MAYERS [facility] Final Result documented in this encounter Visit Diagnoses Not on filedocumented in this encounter Care Teams Assembler Small Products Relationship Specialty Start Date End Date Ty Amin MD PCP - General Family Medicine 01/05/23 09/19/23 Ty Amin MD PCP - General Family Medicine 09/20/23 Mckayla Blas NP [address] [place] [address] PCP - [facility] 09/07/23 01/11/25 Mckayla Blas NP Nurse Practitioner Family Medicine 09/20/23 documented as of this encounter
--- OUTSIDE RECORDS SUMMARY | 2025-03-23 10:11 | XMS_ITS | Encounter Summary ---
Author Organization [facility] Address [address] [place] [address] Care Team Providers Care Nursing Consultant Name Role Phone Ty Amin MD Primary Care Provider [phone] Mckayla Blas NP Unavailable [phone] Mckayla Blas NP Unavailable [phone] Encounter Details Date Type Department Care [...] Recorded Patient Health Questionnaire-2 Score 1 01/17/2024 [facility] - Occupational [...] [facility] [address] [place] [address] Rain Souza MD [address] [place] [address] documented as of this encounter Procedures Procedure Name Priority Date/Time Associated Diagnosis Comments CT ABDOMEN PELVIS W CON 05/12/2024 2:16 PM EST documented in this encounter Results * CT ABDOMEN PELVIS W CON (05/12/2024 2:16 PM EST) Anatomical Region Laterality Modality Other 05/12/2024 2:16 PM EST Narrative 05/12/2024 2:19 PM EST The [address] [address] [address] Scan Report Signed Patient: MITZI MACIAS MR#: [id number] : 1970 Acct:[id number] Age/Sex: 53 / F ADM Date: 05/12/24 Loc: CT Attending Dr: Sarah MAYERS Ordering Physician: Sarah Vega Date of Service: 05/12/24 Procedure(s): CT abdomen pelvis w con Accession Number(s): [id number] cc: Mckayla Blas NP [place] [address] [place], [place] [address] Patient Name: MITZI MACIAS MRN: [facility]:[id number] date: 1970 Sex: F Assigned Patient Location: CT Current Patient Location: Accession/Order Number: [id number] Exam Date: 05/12/2024 11:15 Report Date: 05/12/2024 [...] Signed By: 05/12/24 1419 DD/ 1416 TD/TT: Licensing Analyst: Procedure Note Radiology, Radiologist, MD - 05/12/2024 [place] [address] CT Scan Report Signed Patient: MITZI MACIAS LMR#: [id number] : 1970Acct:[id number] Age/Sex: 53 / FADM Date: 05/12/24 Loc: CT Attending Dr: Sarah MAYERS Ordering Physician: Sarah Vega Date of Service: 05/12/24 Procedure(s): CT abdomen pelvis w con Accession Number(s): [id number] cc: Mckayla Blas NP The [place] [id number] Patient Name: MITZI MACIAS MRN: [id number] date: 1970 Sex: F Assigned Patient Location: CT Current Patient Location: Accession/Order Number: [id number] Exam Date: 05/12/2024 11:15 Report Date: 05/12/2024 [...] M.D. Signed By:05/12/24 1419 DD/ 1416 TD/TT: Licensing Analyst: Generic External Data Provider [facility] Final Result documented in this encounter Visit Diagnoses Not on filedocumented in this encounter Additional Health Concerns Assessment Noted Time PHQ-9 Depression Total Score: 3 01/17/20 24 10:08 AM EDT documented as of this encounter Care Teams Nursing Consultant Relationship Specialty Start Date End Date Ty Amin MD PCP - General Family Medicine 09/20/23 Mckayla Blas NP [address] [place] [address] PCP - [facility] 09/07/23 01/11/25 Mckayla Blas NP Nurse Practitioner Family Medicine 09/20/23 documented as of this encounter
--- OUTSIDE RECORDS SUMMARY | 2025-03-23 10:11 | XMS_ITS | Encounter Summary ---
Author Organization [facility] Address [address] [place] [address] Care Team Providers Care Certified Medical Records Coder Name Role Phone Ty Amin MD Primary Care Provider [phone] Mckayla Blas DRIVABILITY TECHNICIAN Unavailable [phone] Mckayla Blas NP Unavailable [phone] Encounter Details Date Type Department Care Team (Late st Contact Info) Description 07/14/2024 Orders Only [facility] [address] [place] [address] Mckayla Blas NP [address] [facility] [place] [address] Social History Tobacco Use Types Packs/Day Years [...] often do you attend chur ch or oriental orthodox services? 1 to 4 times per [...] 1 01/17/2024 [facility] - Occupational Stress Questionnaire Answer [...] Visit [facility] [address] [place] [address] Rain Souza MD [address] [place] [address] documented as of this encounter Procedures Procedure [...] documented as of this encounter Care Teams Certified Medical Records Coder Relationship Specialty Start Date End Date Ty Amin MD PCP - General Family Medicine 09/20/23 Mckayla Blas NP [address] [place] [address] PCP - [facility] 09/07/23 01/11/25 Mckayla Blas NP Nurse Practitioner Family Medicine 09/20/23 documented as of this encounter
--- OUTSIDE RECORDS SUMMARY | 2025-03-23 10:11 | XMS_ITS | Encounter Summary ---
Author Organization [facility] tem Address [facility]-[id number] [address] [place] [address] Care Team Providers Care Supervisor Cigar Processing Name Role Phone JuanjoseMckayla carcamo Krystal PEREZN-EXPANSION ENVELOPE MAKER HAND Primary Care Provider Encounter Details Date Type Department Care Team (Late st Contact Info) Description 05/31/2020 Orders Only [facility] [address] [place] [address] External, Scanning Provider Social History Tobacco Use [...] on filedocumented in this encounter Care Teams Supervisor Cigar Processing Relationship Specialty Start Date End Date Mckayla Blas, ADVERTISING OPERATIONS COORDINATOR-EXPANSION ENVELOPE MAKER HAND [address] [place] [address] PCP - General Nurse Practitioner 09/25/18 documented as of this encounter
--- OUTSIDE RECORDS SUMMARY | 2025-03-23 10:11 | XMS_ITS | Encounter Summary ---
Author Organization [employer] tem Address [id number] [address] [place] [address] Care Team Providers Care Inseam Leveler Name Role Phone JuanjoseMckayla carcamo Krystal PLANT SPRAYER-CLINICAL DOCUMENT IMPROVEMENT EDUCATOR Primary Care Provider Encounter Details Date Type Department Care Team (Late st Contact Info) Description 05/31/2020 Orders Only [facility] [address] [place] [address] External, Scanning Provider Social History Tobacco Use [...] ECG ORDERABLES Final Result Performing Organization Address [facility] Co de Phone Number MANUALLY [...] ECG ORDERABLES Final Result Performing Organization Address [facility] Co de Phone Number MANUALLY TRANSCRIBED RESULTS * Pulmonary function test (10/24/2018) us Scanning Provider External PFT ORDERABLES Final Result Performing Organization Address [facility] Co de Phone Number MANUALLY TRANSCRIBED RESULTS * Nuc stress Lexiscan/Exercise (12/12/2016) Anatomical Region Laterality Modality Chest N/A Nuclear Medicine us Scanning Provider External CV STRESS ORDERABLES Final Result documented in this encounter Visit Diagnoses Not on filedocumented in this encounter Care Teams Inseam Leveler Relationship Specialty Start Date End Date Mckayla Blas, PLANT SPRAYER-CLINICAL DOCUMENT IMPROVEMENT EDUCATOR [address] [place] [address] PCP - General Nurse Practitioner 09/25/18 documented as of this encounter
--- OUTSIDE RECORDS SUMMARY | 2025-03-23 10:11 | XMS_ITS | Encounter Summary ---
Author Organization [facility] Address [address] [place] [address] Care Team Providers Care Hose Mender Name Role Phone Ty Amin MD Primary Care Provider [phone] Mckayla Blas REINFORCING IRON AND REBAR WORKERS Unavailable [phone] Mckayla Blas NP Unavailable [phone] Encounter Details Date Type Department Care Team (Late st Contact Info) Description 01/07/2025 Abstract [facility] [address] [place] [address] Mckayla Blas NP [address] [facility] [place] [address] Social History Tobacco Use Types Packs/Day Years [...] you attend chur ch or mandaen services? More than 4 times [...] any time in the past 12 m [facility], were you homeless or [...] [facility] [address] [place] [address] Rain Souza MD [address] [place] [address] documented as of this encounter Visit Diagnoses Not on filedocumented in this encounter Additional Health Concerns Assessment Noted Time PHQ-9 Depression Total Score: 3 01/17/20 24 10:08 AM EDT documented as of this encounter Care Teams Hose Mender Relationship Specialty Start Date End Date Ty Amin MD PCP - General Family Medicine 09/20/23 Mckayla Blas NP [address] [place] [address] PCP - [facility] 09/07/23 01/11/25 Mckayla Blas NP Nurse Practitioner Family Medicine 09/20/23 documented as of this encounter
--- OUTSIDE RECORDS SUMMARY | 2025-03-23 10:11 | XMS_ITS | Encounter Summary ---
Author Organization [facility] Address [address] [place] [address] Care Team Providers Care Physician Office Rep Name Role Phone Ty Amin MD Primary Care Provider [phone] Mckayla Blas NP Unavailable [phone] Mckayla Blas NP Unavailable [phone] Encounter Details Date Type Department Care [...] often do you attend chur ch or jew services? 1 to 4 times [...] [facility] [address] [place] [address] Rain Souza MD [address] [place] [address] documented as of this encounter Procedures Procedure Name Priority Date/Time Associated Diagnosis Comments MR LUMBAR SPINE WO CON 05/12/2024 2:41 PM EST documented in this encounter Results * MR LUMBAR SPINE WO CON (05/12/2024 2:41 PM EST) Anatomical Region Laterality Modality Other 05/12/2024 2:41 PM EST Narrative 05/12/2024 2:43 PM EST The [address] [address] Magnetic Resonance Report Signed Patient: MITZI MACIAS MR#: [id number] : 1970 Acct:[id number] Age/Sex: 53 / F ADM Date: 05/12/24 Loc: MRI Attending Dr: Angela Chin [employer]LE SCHOOL PROFESSIONAL Ordering Physician: Angela Chin NP Date of Service: 05/12/24 Procedure(s): MR lumbar spine wo con Accession Number(s): [id number] cc: Mckayla Blas NP; Angela Chin NP [place] [address] Patient Name: MITZI MACIAS MRN: [facility]:[id number] date: 1970 Sex: F Assigned Patient Location: MRI Current Patient Location: CT Accession/Order Number: [id number] Exam Date: 05/12/2024 09:21 Report Date: 05/12/2024 [...] Signed By: 05/12/24 1443 DD/ 40 TD/TT: Airplane Dispatch Clerk: Procedure Note Radiology, Radiologist, MD - 05/12/2024 [place] [address] Magnetic Resonance Report Signed Patient: MITZI MACIAS LMR#: [id number] : 1970Acct:[id number] Age/Sex: 53 / FADM Date: 05/12/24 Loc: MRI Attending Dr: Angela Chin [employer] SCHOOL PROFESSIONAL Ordering Physician: Angela Chin NP Date of Service: 05/12/24 Procedure(s): MR lumbar spine wo con Accession Number(s): [id number] cc: Mckayla Blas MIDDLE SCHOOL PROFESSIONAL; Angela Cihn NP The [place] [id number] Patient Name: MITZI MACIAS MRN: [id number] date: 1970 Sex: F Assigned Patient Location: MRI Current Patient Location: CT Accession/Order Number: [id number] Exam Date: 05/12/2024 09:21 Report Date: 05/12/2024 [...] M.D. Signed By:05/12/24 1443 DD/ 144 TD/TT: Airplane Dispatch Clerk: Generic External Data Provider [facility] Final Result documented in this encounter Visit Diagnoses Not on filedocumented in this encounter Additional Health Concerns Assessment Noted Time PHQ-9 Depression Total Score: 3 01/17/20 24 10:08 AM EDT documented as of this encounter Care Teams Physician Office Rep Relationship Specialty Start Date End Date Ty Amin MD PCP - General Family Medicine 09/20/23 Mckayla Blas NP [address] [place] [address] PCP - [facility] 09/07/23 01/11/25 Mckayla Blas NP Nurse Practitioner Family Medicine 09/20/23 documented as of this encounter
--- OUTSIDE RECORDS SUMMARY | 2025-03-23 10:11 | XMS_ITS | Encounter Summary ---
Author Organization [facility] Address [address] [place] [address] Care Team Providers Care Licensed Optical Dispenser Name Role Phone Ty Amin MD Primary Care Provider [phone] Mckayla Blas NP Unavailable [phone] Mckayla Blas NP Unavailable [phone] Encounter Details Date Type Department Care [...] [facility] [address] [place] [address] Rain Souza MD [address] [place] [address] documented as of this encounter Procedures Procedure Name Priority Date/Time Associated Diagnosis Comments SEGMENTAL BLOOD PRESSURE 04/24/2024 11:20 AM EDT documented in this encounter Results * SEGMENTAL BLOOD PRESSURE (04/24/2024 11:20 AM EDT) Anatomical Region Laterality Modality Radiographic Kalani ging 04/24/2024 11:2 0 AM EDT Narrative 04/24/2024 11:23 AM EDT The [address] [address] Vein Report Signed Patient: MITZI MACIAS MR#: [id number] : 1970 Acct:[id number] Age/Sex: 53 / F ADM Date: 04/24/24 Loc: VC Attending Dr: Rafael Gongora Ordering Physician: Rafael Gongora Date of Service: 04/24/24 Procedure(s): VC SEGMENTAL PRESSURES Accession Number(s): [id number] cc: Mckayla Blas NP; Rafael Gongora The [place] [address] Patient Name: MITZI MACIAS MRN: [id number] date: 1970 Sex: F Assigned Patient Location: VC Current Patient Location: VC Accession/Order Number: [id number] Exam Date: 04/24/2024 10:25 Report Date: 04/24/2024 11:20 At the request of: RAFAEL GONGORA Procedure: VC SEGMENTAL PRESSURES EXAM: VC SEGMENTAL PRESSURES HISTORY: R09.89 COMPARISON: None. FINDINGS: Segmental pressures presented as follows (right, left) in mmHg. Brachial: 169, 166 Upper thigh: Not obtained Lower thigh: 129, 119 Calf: 124, 106 DPA: 108, 105 BOTTLE BLOWER: 100, 91 1st Toe: 124, 142 ISABELLE: [...] Signed By: 04/24/24 1123 DD/ 1120 TD/TT: Muck Farmer: Procedure Note Radiology, Radiologist, MD - 04/24/2024 [place] [address] Vein Report Signed Patient: MITZI MACISA LMR#: [id number] : 1970Acct:[id number] Age/Sex: 53 / FADM Date: 04/24/24 Loc: VC Attending Dr: Rafael Gongora Ordering Physician: Rafael Gongora Date of Service: 04/24/24 Procedure(s): VC SEGMENTAL PRESSURES Accession Number(s): [id number] cc: Mckayla Blas NP; Rafael Gongora [place] [id number] Patient Name: MITZI MACIAS MRN: [facility]:[id number] date: 1970 Sex: F Assigned Patient Location: VC Current Patient Location: VC Accession/Order Number: [id number] Exam Date: 04/24/2024 10:25 Report Date: 04/24/2024 11:20 At the request of: RAFAEL GONGORA Procedure: VC SEGMENTAL PRESSURES EXAM: VC SEGMENTAL PRESSURES HISTORY: R09.89 COMPARISON: None. FINDINGS: Segmental pressures presented as follows (right, left) in mmHg. Brachial: 169, 166 Upper thigh: Not obtained Lower thigh: 129, 119 Calf: 124, 106 DPA: 108, 105 BOTTLE BLOWER: 100, 91 1st Toe: 124, 142 ISABELLE: [...] M.D. Signed By:04/24/24 1123 DD/ 1120 TD/TT: Muck Farmer: us Generic External Data Provider IMG XR PROCEDURES Final Result documented in this encounter Visit Diagnoses Not on filedocumented in this encounter Additional Health Concerns Assessment Noted Time PHQ-9 Depression Total Score: 3 01/17/20 24 10:08 AM EDT documented as of this encounter Care Teams Licensed Optical Dispenser Relationship Specialty Start Date End Date Ty Amin MD PCP - General Family Medicine 09/20/23 Mckayla Blas NP [address] [place] [address] PCP - [facility] 09/07/23 01/11/25 Mckayla lBas NP Nurse Practitioner Family Medicine 09/20/23 documented as of this encounter
--- OUTSIDE RECORDS SUMMARY | 2025-03-23 10:11 | XMS_ITS | Encounter Summary ---
Author Organization [facility] Address [address] [place] [address] Care Team Providers Care Bonbon Cream Warmer Name Role Phone Ty Amin MD Primary Care Provider [phone] Ty Amin MD Primary Care Provider [phone] Mckayla Blas SEED ANALYSIS LABORATORY ASSISTANT Unavailable [phone] Mckayla Blas SEED ANALYSIS LABORATORY ASSISTANT Unavailable [phone] Encounter Details Date Type Department Care Team (Late st Contact Info) Description 09/12/2023 Orders Only [facility] [address] [place] [address] Social History Tobacco Use Types Packs/Day Years [...] Recorded Patient Health Questionnaire-2 Score 2 07/10/2023 [facility] [...] [facility] [address] [place] [address] Rain Souza MD [address] [place] [address] documented as of this encounter Procedures Procedure Name Priority Date/Time Associated Diagnosis Comments XR CHEST 1 VIEW Routine 09/11/2023 4:52 PM EST documented in this encounter Results * XR chest 1 view (09/11/2023 4:52 PM EST) Anatomical Region Laterality Modality Chest Radiographic [facility] IMG XR PROCEDURES Final Result documented in this encounter Visit Diagnoses Not on filedocumented in this encounter Care Teams Bonbon Cream Warmer Relationship Specialty Start Date End Date Ty Amin MD PCP - General Family Medicine 01/05/23 09/19/23 Ty Amin MD PCP - General Family Medicine 09/20/23 Mckayla Blas NP [address] [place] [address] PCP - [facility] 09/07/23 01/11/25 Mckayla Blas NP Nurse Practitioner Family Medicine 09/20/23 documented as of this encounter
--- OUTSIDE RECORDS SUMMARY | 2025-03-23 10:11 | XMS_ITS | Encounter Summary ---
[id number] [address] [place] [address] Care Team Providers Care Car Body Mechanic Name Role Phone Mckayla Blas APRN-CORONARY CARE UNIT NURSE Primary Care Provider Encounter Details Date Type Department Care Team (Late st Contact Info) Description 05/03/2020 [facility] [address] [place] [address] Tramaine Romero DO [address] [place] [address], [address] [id number] Social History Tobacco Use Types Packs/Day Years [...] on filedocumented in this encounter Care Teams Car Body Mechanic Relationship Specialty Start Date End Date Mckayla Blas APRN-[place] [address] PCP - General Nurse Practitioner 09/25/18 documented as of this encounter
--- OUTSIDE RECORDS SUMMARY | 2025-03-23 10:11 | XMS_ITS | Encounter Summary ---
Author Organization [facility] Address [address] [facility] [place] [address] Care Team Providers Care Coordinate Measuring Machine Programmer Name Role Phone Ty Amin MD Primary Care Provider [phone] Mckayla Blas REHABILITATION AIDE/SCHEDULER Unavailable [phone] Encounter Details Date Type Department Care Team (Late st Contact Info) Description 02/18/2025 Abstract [facility] [address] [place] [address] Mckayla Blas NP [address] [place] [address] Social History Tobacco Use Types Packs/Day Years [...] How often do you attend chur or baptist services? More than 4 times [...] [facility] [place] [facility] [address] [place] [address] Rain Souza MD [address] [place] [address] documented as of this encounter Visit Diagnoses Not on filedocumented in this encounter Additional Health Concerns Assessment Noted Time PHQ-9 Depression Total Score: 3 01/17/20 24 10:08 AM EDT documented as of this encounter Care Teams Coordinate Measuring Machine Programmer Relationship Specialty Start Date End Date Ty Amin MD PCP - General Family Medicine 09/20/23 Mckayla Blas NP Nurse Practitioner Family Medicine 09/20/23 documented as of this encounter
--- OUTSIDE RECORDS SUMMARY | 2025-03-23 10:11 | XMS_ITS | Encounter Summary ---
Author Organization [facility] Address [address] [place] [address] Care Team Providers Care Manager Transmission Name Role Phone Ty Amin MD Primary Care Provider [phone] Mckayla Blas CUTTING TOOL SHARPENER Unavailable [phone] Mckayla Blas NP Unavailable [phone] Encounter Details Date Type Department Care Team (Late st Contact Info) Description 01/07/2025 Abstract [facility] [address] [place] [address] Mckayla Blas NP [address] [facility] [place] [address] Social History Tobacco Use Types Packs/Day Years [...] any time in the past 12 m [facility], were you homeless or living [...] [facility] [address] [place] [address] Rain Souza MD [address] [place] [address] documented as of this encounter Visit Diagnoses Not on filedocumented in this encounter Additional Health Concerns Assessment Noted Time PHQ-9 Depression Total Score: 3 01/17/20 24 10:08 AM EDT documented as of this encounter Care Teams Manager Transmission Relationship Specialty Start Date End Date Ty Amin MD PCP - General Family Medicine 09/20/23 Mckayla Blas NP [address] [place] [address] PCP - [facility] 09/07/23 01/11/25 Mckayla Blas NP Nurse Practitioner Family Medicine 09/20/23 documented as of this encounter
--- OUTSIDE RECORDS SUMMARY | 2025-03-23 10:11 | XMS_ITS | Encounter Summary ---
Author Organization [facility] Address [address] [place] [address] Care Team Providers Care Retail Department Manager Name Role Phone Ty Amin MD Primary Care Provider [phone] Mckayla Blas ELL TUTOR Unavailable [phone] Mckayla Blas NP Unavailable [phone] Encounter Details Date Type Department Care Team (Late st Contact Info) Description 04/14/2024 Orders Only [facility] [address] [place] [address] Mckayla Blas NP [address] [facility] [place] [address] Social History Tobacco Use Types Packs/Day Years [...] 1 01/17/2024 [facility] - [facility] Stress Questionnaire Answer Date [...] Visit [facility] [place] [facility] [address] [place] [address] Rain Souza MD [address] [place] [address] documented as of this encounter Procedures Procedure Name Priority Date/Time Associated Diagnosis Comments XR ANKLE 3+ VIEWS RIGHT Routine 04/14/2024 2:57 PM EDT XR ANKLE 3+ VIEWS RIGHT Routine 04/14/2024 11:20 AM EDT documented in this encounter Results * XR ankle 3+ views right (04/14/2024 2:57 PM EDT) Anatomical Region Laterality Modality Lower Extremities, Ankle Right Radiogr aphic Imaging us Mckayla Blas ELL TUTOR IMG XR PROCEDURES Final Result * XR ankle 3+ views right (04/14/2024 11:20 AM EDT) Anatomical Region Laterality Modality Lower Extremities, Ankle Right Radiogr aphic Imaging us Mckayla Blas ELL TUTOR IMG XR PROCEDURES Final Result documented in this encounter Visit Diagnoses Not on filedocumented in this encounter Additional Health Concerns Assessment Noted Time PHQ-9 Depression Total Score: 3 01/17/20 10:08 AM EDT documented as of this encounter Care Teams Retail Department Manager Relationship Specialty Start Date End Date Ty Amin MD PCP - General Family Medicine 09/20/23 Mckayla Blas NP [address] [place] [address] PCP - [facility] 09/07/23 01/11/25 Mckayla Blas NP Nurse Practitioner Family Medicine 09/20/23 documented as of this encounter
--- OUTSIDE RECORDS SUMMARY | 2025-03-23 10:11 | XMS_ITS | Encounter Summary ---
[facility] Organization [id number] [address] [place] [address] Care Team Providers Care Wild Oyster Harvester Name Role Phone JuanjoseMckayla carcamo Krystal ZIPPER CUTTER-EVENT SPECIALIST PRODUCT DEMONSTRATOR Primary Care Provider Encounter Details Date Type Department Care Team (Late st Contact Info) Description 06/11/2020 Orders Only [facility] [address] [place] [address] External, Scanning Provider Social History Tobacco Use [...] on filedocumented in this encounter Care Teams Wild Oyster Harvester Relationship Specialty Start Date End Date Mckayla Blas, ZIPPER CUTTER-EVENT SPECIALIST PRODUCT DEMONSTRATOR [address] [place] [address] PCP - General Nurse Practitioner 09/25/18 documented as of this encounter
--- OUTSIDE RECORDS SUMMARY | 2025-03-23 10:11 | XMS_ITS | Encounter Summary ---
Author Organization [facility] Address [address] [place] [address] Care Team Providers Care Comber Setter Name Role Phone Ty Amin MD Primary Care Provider [phone] Mckayla Blas NP Unavailable [phone] Mckayla Blas NP Unavailable [phone] Encounter Details Date Type Department Care Team (Late st Contact Info) Description 05/12/2024 Orders Only [facility] [address] [place] [address] Angela Cochran NP [address] [place] [address] Social History Tobacco Use Types [...] Visit [facility] [facility] [address] [place] [address] Rain Souza MD [address] [place] [address] documented as of this encounter Procedures Procedure [...] documented as of this encounter Care Teams Comber Setter Relationship Specialty Start Date End Date Ty Amin MD PCP - General Family Medicine 09/20/23 Mckayla Blas NP [address] [place] [address] PCP - [facility] 09/07/23 01/11/25 Mckayla Blas NP Nurse Practitioner Family Medicine 09/20/23 documented as of this encounter
--- OUTSIDE RECORDS SUMMARY | 2025-03-23 10:12 | XMS_ITS | Encounter Summary ---
Author Organization [facility] Address [address] [place] [address] Care Team Providers Care Fuel Dock Attendant Name Role Phone Ty Amin MD Primary Care Provider [phone] Mckayla Blas ENGRAVER LETTER Unavailable [phone] Mckayla Blas ENGRAVER LETTER Unavailable [phone] Reason for Visit * Reason Comments Med Refill Encounter Details Date Type Department Care Team (Late st Contact Info) Description 11/27/2023 Refill [facility] [address] [place] [address] Mckayla Blas NP [address] [facility] [place] [address] Chronic obstructive pulmonary disease, unspecified (HCC) Social [...] Recorded Patient Health Questionnaire-2 Score 0 11/01/2023 [facility] - Occupational [...] [facility] [address] [place] [address] Rain Souza MD [address] [place] [address] documented as of this encounter Visit Diagnoses Diagnosis Chronic obstructive pulmonary disease, unspecified (HCC) documented in this encounter Care Teams Fuel Dock Attendant Relationship Specialty Start Date End Date Ty Amin MD PCP - General Family Medicine 09/20/23 Mckayla Blas NP [address] [place] [address] PCP - [facility] 09/07/23 01/11/25 Mckayla Blas NP Nurse Practitioner Family Medicine 09/20/23 documented as of this encounter
--- OUTSIDE RECORDS SUMMARY | 2025-03-23 10:12 | XMS_ITS | Clinical Summary ---
Author Organization [facility] Address [address] [place] [address] Care Team Providers Care Systems Analyst Developer Name Role Phone Ty Amin MD Primary Care Provider [phone] Mckayla Blas NP Unavailable [phone] Allergies No known active allergies Medications [...] if needed for wheezing Active HYDROcodone-acet aminophen ([place]way) 5-325 MG tablet 1 tablet as needed [...] 025 Active ergocalciferol (Vitamin D2) 1.25 MG (59868 UT) capsuleIndicatio ns:Vitamin D deficiency, unspecified Take [...] hyperglycemia, with long-term current use of insulin ([facility]) Inject 58 Units under the skin in the morning and 58 Units before bedtime. 104.4 mL 1 025 2025 Active insulin glargine (Lantus SoloStar) 100 UNIT/ML penIndications:T ype 2 diabetes mellitus with hyperglycemia, with long-term current use of insulin ([facility]) INJECT 58 UNITS SUBCUTANEOUSLY TWICE [...] WEEK 6 mL 1 024 2024 Discontinued varenicline (Chantix) 1 MG tabletIndication [...] wrapped, 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 as possible superintendent container terminal current use of inhaled steroid 025 Non-pressure [...] see if helps Encounter for subsequent edgar [facility] wellness visit (AWV) in Medicare [...] can try ubrelvy #3 samples given: Lot [id number], exp 03/2025 Mixed incontinence 11/14/2023 Arthritis 11/14/2023 [...] is necessary they take over prescribing Pancreatitis ([facility]) 09/17/2023 COPD exacerbation 09/17/2023 Assessment [...] 11:17 AM EDT): Open wounds refer to [facility] Pulmonary hypertension 09/17/2023 Assessment & Plan (01/26/2025 7:52 AM EDT): Has seen [facility] Cardiology Assessment & Plan (12/09/2024 7:23 AM EDT): Has seen [facility] Cardiology Assessment & Plan (11/15/2023 3:49 PM EDT): Saw [facility] Cardiology See notes Going to see Pulmonary Assessment & Plan (09/27/2023 1:03 PM EDT): Needs to wear her PAP I am also going to have her see [facility] Cardiology as well PAD (peripheral artery disease) [...] Plan (10/27/2024 2:37 PM EDT): Continue with lyrica pain mgmt is [...] spiriva Will trial breztri: #2 samples given [id number], exp 03/03, rinse mouth after use Give [...] PM EDT): Current meds: albuterol, duoneb, Has poker in 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 Assessment & Plan (08/27/2024 7:30 AM EST): Current meds: albuterol, duoneb, Has poker in 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 Assessment & Plan (01/17/2024 [...] Assessment & Plan (07/10/2023 11:59 AM EST): Lexus santiago, discussed skin care regimines as well [...] of the risks of continued smoking: stroke, IA, all forms of cancer, lung disease, and [...] of the risks of continued smoking: stroke, IA, all forms of cancer, lung disease, and [...] Care Team Description 03/09/2025 Refill [facility] [address] [facility] [place] [address] Mckayla Blas NP Tobacco user; Encounter for smoking cessation counseling 02/27/2025 Refill [facility] [address] [place] [address] Amber Pinzon LPN Type 2 diabetes mellitus with other circulatory complications (HCC) 02/26/2025 Refill [facility] [address] [place] [address] Rain Odonnell MD Type 2 diabetes mellitus with other circulatory complications (HCC) 02/18/2025 Abstract [facility] [address] [place] [address] Mckayla Blas NP 02/14/2025 Refill [facility] [address] [place] [address] Rain Odonnell MD Type 2 diabetes mellitus with hyperglycemia, with long-term current use of insulin (HCC) 01/29/2025 9:40 AM EDT Office Visit [facility] [place] [address] [place] [address] Rain Odonnell MD Encounter for dietary consultation (Primary Dx); Type 2 diabetes mellitus with hyperglycemia, with long-term current use of insulin (HCC); Vitamin D deficiency; Primary hypertension ; Insulin long-term use (HCC); Hyperlipemia, mixed ; Microalbuminuria; Class 3 severe obesity due to excess calories with serious comorbidity and body mass index (BMI) of 50.0 to 59.9 in adult ([facility]) 01/29/2025 Clinisync Result Encounter [facility] External Department Unsolicited Provider, Generic External Data 01/29/2025 Bamboo flowsheet [facility] [place] [facility] [address] [place] [address] Rain Odonnell MD 01/26/2025 6:00 PM EDT Office Visit [facility] [address] [place] [address] Mckayla Blas NP Encounter for subsequent annual [...] Morbid (severe) obesity due to excess calories ([facility]) 01/26/2025 Bamboo flowsheet [facility] [address] [place] [address] Mckayla Blas NP 01/19/2025 Travel 01/16/2025 Refill [facility] [address] [place] [address] Amber Pinzon LPN Vitamin D deficiency, unspecified 01/07/2025 Abstract [facility] [address] [place] [address] Mckayla Blas NP 01/07/2025 Abstract [facility] [address] [facility] [facility] [place] [address] Mckayla Blas, SILVANO from Last 3 Months Immunizations Immunization Administration Dates Next Due Influenza Whole 05/02/2013 Influenza, [id number] 04/16/2017,05/10/2016 Influenza, Unspecified 05/18/2023,04/16/2017,08/2015 Influenza, injectable, quadrivalent [...] do you attend chur or samaritan services? More than 4 times [...] Score 0 01/26/2025 [facility] - [facility] Questionnaire Answer [...] any time in the past 12 m [facility], were you homeless or living [...] [facility] [place] [facility] [address] [place] [address] Rain Odonnell MD [address] [place] [address] Health Maintenance Due Date Last Done Comments CT Colonography 1970 Colonoscopy 1970 FIT 1970 FOBT 1970 Sigmoidoscopy 1970 HPV/Cotest 2000 Pap Smear 10/07/2018 10/08/2015, 10/08/2015 Mammogram 12/13/2024 12/14/2023, 06/0 01/2024, 11/22/2022 Influenza Vaccine (#1) 2025 3, 05/18/2023, 04/16/2017, Additional history exists Diabetes: Hemoglobin [...] EDT Narrative 01/29/2025 6:40 [place] [address] Cardiology Report Signed Patient: SINA MACIAS MR#: [id number] : 1970 Acct:[id number] Age/Sex: 54 / F ADM Date: 01/29/25 Loc: CARD Attending Dr: AMI ORO APRN Ordering Physician: AMI ORO APRN Date of Service: 01/29/25 Procedure(s): CA echo doppler complete Accession Number(s): [id number] cc: Mckayla Blas NP; AMI ORO APRN Patient Name: SINA MACIAS MR#: [id number] : 1970 Exam Date: 01/29/2025 Ordering Doctor: AMI ORO [facility] ECHOCARDIOGRAM REPORT PROCEDURE: CA ECHO DOPPLER [...] HERRERA Signed By: 01/29/251839 DD/ 39 TD/TT: Steam Boiler Fireman: Procedure Note Radiology, Radiologist, MD - 01/29/2025 [place] [address] Cardiology Report Signed Patient: SINA MACIAS LMR#: [id number] : 1970Acct:[id number] Age/Sex: 54 / FADM Date: 01/29/25 Loc: CARD Attending Dr: AMI ORO APRN Ordering Physician: AMI ORO APRN Date of Service: 01/29/25 Procedure(s): CA echo doppler complete Accession Number(s): [id number] cc: Mckayla Blas PULMONARY SPECIALIST; AMI ORO APRN Patient Name: SINA MACIAS MR#: [id number] : 1970 Exam Date: 01/29/2025 Ordering Doctor: AMI ORO GUITAR PLAYER ECHOCARDIOGRAM REPORT PROCEDURE: CA ECHO DOPPLER COMPLETE [...] at 18:40 Dictated By: BHARAT HERRERA Signed By:01/29/251839 DD/ 39 TD/TT: Steam Boiler Fireman: us Generic External Data Provider [facility] [...] Region Laterality Modality Head Other Mckayla Blas PULMONARY SPECIALIST OPHTH PHOTOGRAPHY Final Result * MM TOMOSYNTHESIS SCREENING BI (12/14/2023 11:21 AM EDT) Anatomical Region Laterality Modality Other 12/14/2023 11:2 1 AM EDT Narrative 12/14/2023 11:22 AM EDT [place] [id number] Mammography Report Signed Patient: SINA MACIAS MR#: [id number] : 1970 Acct:[id number] Age/Sex: 53 / F ADM Date: 12/13/23 Loc: MAMMO Attending Dr: Mckayla Blas NP Ordering Physician: Mckayla Blas NP Results: Date of Service: 12/13/23 Follow Up: Procedure(s): MM tomosynthesis screening BI Accession Number(s): [id number] cc: Mckayla Blas NP Patient Name: SINA MACIAS MR#: [id number] : 1970 Exam Date: 12/13/2023 Ordering Doctor: [...] unknown cancer at age 75. LOCATION: [facility] BREAST COMPOSITION: The breasts are almost [...] Signed By: 12/14/23 1122 DD/ 1121 TD/TT: Steam Boiler Fireman: Procedure Note Radiology, Radiologist, MD - 12/14/2023 [place] [address] Mammography Report Signed Patient: SINA MACIAS LMR#: [id number] : 1970Acct:[id number] Age/Sex: 53 / FADM Date: 12/13/23 Loc: MAMMO Attending Dr: Mckayla Blas PULMONARY SPECIALIST Ordering Physician: Mckayla Blas NPResults: Date of Service: 12/13/23Follow Up: Procedure(s): MM tomosynthesis screening BI Accession Number(s): [id number] cc: Mckayla Blas NP Patient Name: SINA MACIAS MR#: [id number] : 1970 Exam Date: 12/13/2023 Ordering Doctor: SAYDA [facility] GUITAR PLAYER RADIOLOGY REPORT PROCEDURE: MM TOMOSYNTHESIS SCREENING BI [...] unknown cancer at age 75. LOCATION: [facility] BREAST COMPOSITION: The breasts are almost [...] M.D. Signed By:12/14/23 1122 DD/ 1121 TD/TT: Steam Boiler Fireman: Mckayla Blas NP [facility] Final Result from Last 3 Months or Most Recently Relevant to Health Maintenance Insurance [employer] MEDICARE Care Teams Systems Analyst Developer Relationship Specialty Start Date End Date Ty Amin MD PCP - General Family Medicine 09/20/23 Mckayla Blas NP Nurse Practitioner Family Medicine 09/20/23
--- OUTSIDE RECORDS SUMMARY | 2025-03-23 10:12 | XMS_ITS | Encounter Summary ---
Author Organization [facility] Address [address] [place] [address] Care Team Providers Care Remarketing Manager Name Role Phone Ty Amin MD Primary Care Provider [phone] Mckayla Blas PIN SORTER AND BAGGER Unavailable [phone] Reason for Visit * Reason Comments Med Refill Encounter Details Date Type Department Care Team (Late st Contact Info) Description 03/09/2025 Refill [facility] [address] [place] [address] Mckayla Blas, PIN SORTER AND BAGGER [address] [place] [address] Tobacco user; Encounter for smoking cessation counseling [...] [facility] [address] [place] [address] Rain Souza MD [address] [place] [address] documented as of this encounter Visit Diagnoses Diagnosis Tobacco user Tobacco use disorder Encounter for smoking cessation counseling documented in this encounter Additional Health Concerns Assessment Noted Time PHQ-9 Depression Total Score: 3 01/17/20 24 10:08 AM EDT documented as of this encounter Care Teams Remarketing Manager Relationship Specialty Start Date End Date Ty Amin MD PCP - General Family Medicine 09/20/23 Mckayla Blas NP Nurse Practitioner Family Medicine 09/20/23 documented as of this encounter
--- OUTSIDE RECORDS SUMMARY | 2025-03-23 10:12 | XMS_ITS | Encounter Summary ---
Author Organization [facility] Address [address] [place] [address] Care Team Providers Care Computer Information Systems Professor Name Role Phone Ty Amin MD Primary Care Provider [phone] Ty Amin MD Primary Care Provider [phone] Mckayla Blas COMP FIELD CASE MANAGER Unavailable [phone] Mckayla Blas COMP FIELD CASE MANAGER Unavailable [phone] Encounter Details Date Type Department Care Team (Late st Contact Info) Description 07/08/2023 Abstract [facility] [address] [place] [address] Mckayla Blas NP [address] [place] [address] Social History Tobacco Use Types Packs/Day Years [...] Recorded Patient Health Questionnaire-2 Score 2 07/10/2023 [facility] - Occupational [...] [facility] [address] [place] [address] Rain Souza MD [address] [place] [address] documented as of this encounter Visit Diagnoses Not on filedocumented in this encounter Care Teams Computer Information Systems Professor Relationship Specialty Start Date End Date Ty Amin MD PCP - General Family Medicine 01/05/23 09/19/23 Ty Amin MD PCP - General Family Medicine 09/20/23 Mckayla Blas NP [address] [facility] [address] PCP - [facility] 09/07/23 01/11/25 Mckayla Blas NP Nurse Practitioner Family Medicine 09/20/23 documented as of this encounter
--- OUTSIDE RECORDS SUMMARY | 2025-03-23 10:12 | XMS_ITS | Encounter Summary ---
Author Organization [facility] Address [address] [place] [address] Care Team Providers Care Filter 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 Name Role Phone Ty Amin MD Primary Care Provider [phone] Mckayla Blas DESIGN LEADER Unavailable [phone] Mckayla Blas NP Unavailable [phone] Encounter Details Date Type Department Care Team (Late st Contact Info) Description 12/14/2023 Clinisync Result Encounter [facility] External Department Unsolicited Mckayla Blas NP [address] [place] [place] [address] Social History Tobacco Use Types Packs/Day Years [...] How often do you attend chur or mormonism services? 1 to 4 times [...] [facility] ional [facility] - Occupational Stress Questionnaire Answer Date [...] [facility] [address] [place] [address] Rain Souza MD [address] [place] [address] documented as of this encounter Procedures Procedure Name Priority Date/Time Associated Diagnosis Comments MM TOMOSYNTHESIS SCREENING BI 12/14/2023 11:21 AM EDT documented in this encounter Results * MM TOMOSYNTHESIS SCREENING BI (12/14/2023 11:21 AM EDT) Anatomical Region Laterality Modality Other 12/14/2023 11:2 1 AM EDT Narrative 12/14/2023 11:22 AM EDT The [address] [address] Mammography Report Signed Patient: MITZI MACIAS MR#: [id number] : 1970 Acct:[id number] Age/Sex: 53 / F ADM Date: 12/13/23 Loc: MAMMO Attending Dr: Mckayla Blas NP Ordering Physician: Mckayla Blas NP Results: Date of Service: 12/13/23 Follow Up: Procedure(s): MM tomosynthesis screening BI Accession Number(s): [id number] cc: Mckayla Blas NP Patient Name: MITZI MACIAS MR#: [id number] : 1970 Exam Date: 12/13/2023 Ordering Doctor: [...] at age 75. LOCATION: The [facility] [place] BREAST COMPOSITION: The breasts are almost entirely [...] Signed By: 12/14/23 1122 DD/ 1121 TD/TT: Account Analyst: Procedure Note Radiology, Radiologist, MD - 12/14/2023 [place] [address] Mammography Report Signed Patient: MITZI MACIAS LMR#: [id number] : 1970Acct:[id number] Age/Sex: 53 / FADM Date: 12/13/23 Loc: MAMMO Attending Dr: Mckayla Blas DESIGN LEADER Ordering Physician: Mckayla Blas NPResults: Date of Service: 12/13/23Follow Up: Procedure(s): MM tomosynthesis screening BI Accession Number(s): [id number] cc: Mckayla Blas NP Patient Name: MITZI MACIAS MR#: [id number] : 1970 Exam Date: 12/13/2023 Ordering Doctor: SAYDA Blas HOME CARE COORDINATOR RADIOLOGY REPORT PROCEDURE: MM TOMOSYNTHESIS SCREENING [...] at age 75. LOCATION: The [facility] [place] BREAST COMPOSITION: The breasts are almost entirely [...] M.D. Signed By:12/14/23 1122 DD/ 1121 TD/TT: Account Analyst: us Mckayla Blas NP [facility] Final Result documented in this encounter Visit Diagnoses Not on filedocumented in this encounter Care Teams Filter 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 Relationship Specialty Start Date End Date Ty Amin MD PCP - General Family Medicine 09/20/23 Mckayla Blas NP [address] [place] [address] PCP - [facility] 09/07/23 01/11/25 Mckayla Blas NP Nurse Practitioner Family Medicine 09/20/23 documented as of this encounter
--- OUTSIDE RECORDS SUMMARY | 2025-03-23 10:12 | XMS_ITS | Encounter Summary ---
Author Organization [facility] Address [address] [place] [address] Care Team Providers Care Putty Maker Name Role Phone Mckayla Blas MD Primary Care Provider [phone] Encounter Details Date Type Department Care Team (Late st Contact Info) Description 02/04/2025 Results Follow-[facility] [address] [facility] [place] [address] Karma Chatterjee CNP [address] [place] [phone] Complete Echo (TTE) w/wo Imaging Agent, Strain, [...] on filedocumented in this encounter Care Teams Putty Maker Relationship Specialty Start Date End Date Mckayla Blas MD [address] [place] [address] PCP - General Nurse Practitioner 11/13/23 documented as of this encounter
--- OUTSIDE RECORDS SUMMARY | 2025-03-23 10:12 | XMS_ITS | Encounter Summary ---
Author Organization [facility] Address [address] [facility] [place] [address] Care Team Providers Care Glass Embosser Name Role Phone Ty Amin MD Primary Care Provider [phone] Mckayla Blas RESAW OPERATOR Unavailable [phone] Mckayla Blas NP Unavailable [phone] Encounter Details Date Type Department Care Team (Late st Contact Info) Description 12/17/2023 Orders Only [facility] [address] [place] [address] Mckayla Blas NP [address] [place] [address] Social History Tobacco Use Types Packs/Day Years [...] often do you attend chur ch or confucianist services? 1 to 4 times per year [...] Recorded Patient Health Questionnaire-2 Score 0 11/01/2023 [facility] ional [facility] - [...] [facility] [address] [place] [address] Rain Souza MD [address] [place] [address] documented as of this encounter Procedures Procedure [...] on filedocumented in this encounter Care Teams Glass Embosser Relationship Specialty Start Date End Date Naderer, Ty, MD PCP - General Family Medicine 09/20/23 Mckayla Blas NP [address] [place] [address] PCP - [facility] 09/07/23 01/11/25 Mckayla lBas NP Nurse Practitioner Family Medicine 09/20/23 documented as of this encounter
--- OUTSIDE RECORDS SUMMARY | 2025-03-23 10:25 | XMS_ITS | CCD ---
Author Organization [facility] Care Team Providers Care Precision Farming Specialist Name Role Phone James Benavidez Primary Care Provider JAMES BENAVIDEZ Primary Care Unavailable SHENDGE, VITHAL Admitting Unavailable SHENDGE, VITHAL Attending Unavailable AICHHOLZ, MCKAYLA Primary Care Unavailable AICHHOLZ, MCKAYLA Referring Unavailable AICHHOLZ, MCKAYLA J Primary Care Physician Tico, Stephanie Unavailable OLE RAMIREZ Attending Unavailable OLE RAMIREZ Consulting Unavailable AICHHOLZ, CAD ADMINISTRATOR MCKAYLA Primary Care Unavailable OLE RAMIREZ Admitting Unavailable ANTONY SHRESTHA Consulting Unavailable ALONDRA ., UMBERTO Admitting Unavailable ALONDRA ., UMBERTO Attending Unavailable AICHHOLZ, CAD ADMINISTRATOR MCKAYLA Primary Care Unavailable AFSANEH Loera, DR BOLANOS Consulting Unavailable MARYANNE POWER Consulting Unavailable GLENN KERR Consulting Unavailable YOMAIRA KERR Consulting Unavailable HATTIE GOFF Consulting Unavailable ALONDRA ., UMBERTO Consulting Unavailable TICO, STEPHANIE Attending Unavailable TICO, STEPHANIE Consulting Unavailable AICHHOLZ, CAD ADMINISTRATOR MCKAYLA Primary Care Unavailable TICO, STEPHANIE Admitting Unavailable REGLA ., DR DUMONT Admitting Unavailable AICHHOLZ, CAD ADMINISTRATOR MCKAYLA Primary Care Unavailable REGLA ., DR DUMONT Attending Unavailable ARAUZ ., DR DUMONT Consulting Unavailable COLLIN HUERTAS Consulting Unavailable CECILIA KAUFMAN Admitting Unavailable CECILIA KAUFMAN Attending Unavailable AICHHOLZ, CAD ADMINISTRATOR MCKAYLA Primary Care Unavailable RAFAEL GONGORA Attending Unavailable RAFAEL GONGORA Admitting Unavailable AICHHOLZ, CAD ADMINISTRATOR MCKAYLA Primary Care Unavailable AICHHOLZ, CAD ADMINISTRATOR MCKAYLA Admitting Unavailable AICHHOLZ, CAD ADMINISTRATOR MCKAYLA Primary Care Unavailable AICHHOLZ, CAD ADMINISTRATOR MCKAYLA Attending Unavailable AICHHOLZ, CAD ADMINISTRATOR MCKAYLA Consulting Unavailable LAKSHMIPATHY ., NARENDRANATH Attending Anette vailable LAKSHMIPATHY ., NARENDRANATH Consulting Anette vailable LAKSHMIPATHY ., NARENDRANATH Admitting Anette vailable AICHHOLZ, CAD ADMINISTRATOR MCKAYLA Primary Care Unavailable VALENZUELA ., GIL Consulting Unavailable MORTENSEN ., DR CHAPARRO Aguillon Attending Unavailable MORTENSEN ., DR CHAPARRO Aguillon Admitting Unavailable AICHHOLZ, CAD ADMINISTRATOR MCKAYLA Primary Care Unavailable VALENZUELA ., GIL Consulting Unavailable MORTENSEN ., DR CHAPARRO Aguillon Admitting Unavailable AICHHOLZ, CAD ADMINISTRATOR MCKAYLA Primary Care Unavailable MORTENSEN ., DR CHAPARRO Aguillon Attending Unavailable HALKER ., SUBHASH Consulting Unavailable LAKSHMIPATHY ., NARENDRANATH Admitting Anette vailable LAKSHMIPATHY ., NARENDRANATH Attending Anette vailable AICHHOLZ, CAD ADMINISTRATOR MCKAYLA Primary Care Unavailable MORTENSEN ., DR CHAPARRO Aguillon Attending Unavailable MORTENSEN ., DR CHAPARRO Aguillon Admitting Unavailable VALENZUELA ., GIL Consulting Unavailable AICHHOLZ, CAD ADMINISTRATOR MCKAYLA Primary Care Unavailable VALENZUELA ., GIL Consulting Unavailable MORTENSEN ., DR CHAPARRO Aguillon Attending Unavailable MORTENSEN ., DR CHAPARRO Aguillon Admitting Unavailable AICHHOLZ, CAD ADMINISTRATOR MCKAYLA Primary Care Unavailable HATTIE BRODERICK Attending Unavailable HATTIE BRODERICK Admitting Unavailable AICHHOLZ, CAD ADMINISTRATOR MCKAYLA Primary Care Unavailable AICHHOLZ, CAD ADMINISTRATOR MCKAYLA Admitting Unavailable AICHHOLZ, CAD ADMINISTRATOR MCKAYLA Consulting Unavailable AICHHOLZ, CAD ADMINISTRATOR MCKAYLA Primary Care Unavailable AICHHOLZ, CAD ADMINISTRATOR MCKAYLA Attending Unavailable AICHHOLZ, CAD ADMINISTRATOR MCKAYLA Primary Care Unavailable MISC, DR LESLIE Admitting Unavailable MISC, DR LESLIE Attending Unavailable MISC, DR LESLIE Consulting Unavailable DIAB ., MARIANO Admitting Unavailable DIAB ., MARIANO Attending Unavailable DIAB ., MARIANO Consulting Unavailable AICHHOLZ, CAD ADMINISTRATOR MCKAYLA Primary Care Unavailable RASTEGAR, RICCO Consulting Unavailable AICHHOLZ, CAD ADMINISTRATOR MCKAYLA Admitting Unavailable AICHHOLZ, CAD ADMINISTRATOR MCKAYLA Primary Care Unavailable AICHHOLZ, CAD ADMINISTRATOR MCKAYLA Attending Unavailable AICHHOLZ, CAD ADMINISTRATOR MCKAYLA Consulting Unavailable DR PATRICIA VELOZ Consulting Unavailable TAMLYN ., CECILIA Attending Unavailable TAMLYN ., CECILIA Admitting Unavailable DR PATRICIA VELOZ Consulting Unavailable AICHHOLZ, CAD ADMINISTRATOR MCKAYLA Primary Care Unavailable TAMLYN ., CECILIA Consulting Unavailable MORTENSEN ., DR CHAPARRO Aguillon Attending Unavailable FESTUS ., DR CHAPARRO Aguillon Consulting Unavailable FESTUS ., DR CHAPARRO Aguillon Admitting Unavailable AICHHOLZ, CAD ADMINISTRATOR MCKAYLA Primary Care Unavailable HATTIE BRODERICK Attending Unavailable HATTIE BRODERICK Consulting Unavailable HATTIE BRODERICK Admitting Unavailable AICHHOLZ, CAD ADMINISTRATOR MCKAYLA Primary Care Unavailable HATTIE BAUTISTA Unavailable AICHHOLZ, CAD ADMINISTRATOR MCKAYLA Admitting Unavailable AICHHOLZ, CAD ADMINISTRATOR MCKAYLA Attending Unavailable AICHHOLZ, CAD ADMINISTRATOR MCKAYLA Consulting Unavailable AICHHOLZ, CAD ADMINISTRATOR MCKAYLA Primary Care Unavailable Brennan PHIPPS, Ty Primary Care Provider Brennan PHIPPS, Ty Primary Care Provider [phone] Aichholz RETAIL TIRE SALES MANAGER, Mckayla Unavailable Aichholz RETAIL TIRE SALES MANAGER, Mckayla Unavailable Elbert ARAUZ Attending Unavailable SARAH VEGA Attending Unavailable AICHHOLZ, MCKAYLA Attending Unavailable RAIN SOUZA F Attending Unavailable AICHHOLZ, MCKAYLA Attending Unavailable AICHHOLZ, MCKAYLA Attending Unavailable AICHHOLZ, MCKAYLA Attending Unavailable LIBBYRAIN GIANG F Attending Unavailable AICHHOLZ, MCKAYLA Attending Unavailable RAIN SOUZA F Attending Unavailable LIBBY AHMAD F Referring Unavailable AICHHOLZ, MCKAYLA Attending Unavailable DAKOTAH BRIDGES Attending Unavailable AMI ORO Attending Unavailable Aichholz RETAIL TIRE SALES MANAGER, Mckayla Unavailable Aodnay CHAU, Flynn Arzate Attending Unavailab lolita Urias DPM, Flynn Arzate Referring Unavailab le Bob CAUL FAT PULLER-CAD ADMINISTRATOR, Omero Lovell Attending Unav roberto Urias DPM, Flynn Arzate Attending Unavailab le Allergies Allergy Classification Reported Allergen(s) Allergy Type Date of Onset Reaction(s) Facility (1 source) No Known Medication Allergies; Translations: [No Known Medication Allergies] Propensity to adverse reactions (disorder) [facility] Repository Medications Current Medications Medication Drug Class(es) [...] Start Date: 02/06/22 Status: Ordered HYDROcodone-acet aminophen ([place]) 5-325 MG tablet 1 tablet 3 (three) times a day as needed for severe pain. Active take 1 tablet by vandana twice daily as needed [place] 5-325 MG 1 tablet as needed Orally [...] every week ergocalciferol (Vitamin D2) 1.25 MG (84214 UT) capsule Indications: Vitamin D deficiency, unspecified Take 1 capsule (1.25 mg) by mouth 1 (one) time per week 12 capsule 1 01/16/2025 04/10/2025 Active Start: 10-27-2024 End: 01-19-2025 take 1 capsule by mouth two times weekly ergocalciferol (Vitamin D2) 1.25 MG (19463 UT) capsule Indications: Vitamin D deficiency, unspecified Take 1 capsule (1.25 mg) by mouth 2 (two) times a week 24 capsule 1 10/27/2024 01/19/2025 Active Start: 04-06-2024 End: 10-27-2024 take 1 capsule by mouth every week ergocalciferol (Vitamin D2) 1.25 MG (94425 UT) capsule Indications: Vitamin D deficiency, unspecified [...] 02-06-2022 Chronic Other aftercare (1 source) Other longterm (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 therapy; Translations: [OTH USP CURRENT DRUG THERAPY] Onset: 12-05-2022 Episodic Other aftercare (1 source) long-term (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; Translations: [USP CURRENT USE OF ASPIRIN] Onset: 12-05-2022 Episodic Other aftercare (6 sources) Long-term current use of insulin; Translations: [terminal gauger (current) use of insulin] 05-27-2024 Episodic Other [...] ocumentation in Social History. Unclassified (1 source) VP AD SALES WEST INJECT NONINSULN ANTIDIAB; Translations: [VP AD SALES WEST INJECT NONINSULN ANTIDIAB] Onset: 12-05-2022 Unclassified (3 [...] 08-27-2024 08-27-2024 Episodic Other aftercare (3 sources) long-term (current) use of insulin; Translations: [VP AD SALES WEST CURRENT USE OF INSULIN] Onset: 12-05-2022 Episodic Other aftercare (20 sources) Long-term current use of inhaled steroid; Translations: [terminal gauger (current) use of inhaled steroids] Onset: 08-27-2024 [...] wraps (gauze, tila bandage, Coban II, tuba dialysis clinical manager), Dakins solution, a 40-day course of antibiotics, [...] other blood thinners. The patient resides in [place]. Review of Systems Constitutional: Negative for signs [...] extremities Positi (more content not included)... [facility] Comment on above: Order Comment: Destiny ocampo Attachment [id number] Can be viewed in source system XR [...] Electronically Signed in Other Vendor System) [facility] Orders Onlyon 01-30-2025 Orders Only [id number] Mitzi Macias 1970 F Date Provider Department Center 01/30/2025 [id number], HISTORICAL [facility] Family History Problem Relation Age of Onset Heart attack Paternal Grandmother Family Status - Relation Status Age at Mother Father Paternal Grandmother Normal [facility] CA ECHO DOPPLER COMPLETEon 0 01-29-2025 [place] [address] Cardiology Report Signed Patient: MITZI MACIAS MR#: [id number] : 1970 Acct:[id number] Age/Sex: 54 / F ADM Date: 01/29/25 Loc: CARD Attending Dr: AMI ORO APRN Ordering Physician: AMI ORO APRN Date of Service: 01/29/25 Procedure(s): CA echo doppler complete Accession Number(s): [id number] cc: Mckayla Blas RETAIL TIRE SALES MANAGER; AMI ORO APRN Patient Name: MITZI MACIAS MR#: [id number] : 1970 Exam Date: 01/29/2025 Ordering Doctor: AMI ORO CAD ADMINISTRATOR ECHOCARDIOGRAM REPORT PROCEDURE: CA ECHO DOPPLER COMPLETE [...] HERRERA Signed By: 01/29/251839 DD/ 39 TD/TT: Lap Welder: [facility] Radiology, Radiologist, MD - 01/29/2025 [place] [address] Cardiology Report Signed Patient: MITZI MACIAS MR#: [id number] : 1970 Acct:[id number] Age/Sex: 54 / F ADM Date: 01/29/25 Loc: CARD Attending Dr: AMI ORO APRN Ordering Physician: AMI ORO APRN Date of Service: 01/29/25 Procedure(s): CA echo doppler complete Accession Number(s): [id number] cc: Mckayla Blas RETAIL TIRE SALES MANAGER; AMI ORO APRN Patient Name: MITZI MACIAS MR#: [id number] : 1970 Exam Date: 01/29/2025 Ordering Doctor: [...] HERRERA Signed By: 01/29/251839 DD/ 39 TD/TT: Lap Welder: [facility] Radiology Study observation (narrative) [facility] CA ECHO DOPPLER COMPLETEOrde red By: Radiologist Radiology on 01-29-2025 [facility] Work Phone: Glucose (Bld) [Mass/Vol]on 0 01-29-2025 Glucose Blood, POC 121 mg/dL [facility] Laboratory - Hematology and Cell countson 01-29-2025 HbA1c (Bld) [Mass fraction] 8.4 % [facility] No Panel Informationon 01-29 Interpretation and review of laboratory results Abnormal [facility] Office Visiton 01-06-2025 Follow-up visit [id number] Mitzi Macias 1970 F Date Provider Department Center 01/06/2025 Mikaela-PREETHI, AMI CARD [place] [facility] Family History Problem Relation Age of Onset Heart attack Paternal Grandmother Family Status - Relation Status Age at Mother Father Paternal Grandmother Level of Service:88739 [place] OFFICE/OUTPATIENT ESTABLISHED MOD MDM 30 MIN Reason for Visit and Comments: Congestive Heart Failure [127] Hypertension [973677] Hyperlipidemia [182] Normal [facility] 36on 10-21-2024 36 Regarding lab results from 10/08/2024: MD Mickie Merritt MA Lipids, ALT AST, and BMP are normal. HbA1c was not performed. Continue current management. LM on patient's VM. Normal [facility] Glucose (Bld) [Mass/Vol]Orde red By: Mica Sauceda on 10-08-2024 Glucose Blood, POC 97 mg/dL [facility] - Hematology and Cell countson 10-08-2024 HbA1c (Bld) [Mass fraction] 7.4 % [facility] No Panel InformationOrdered By: Mica Sauceda [...] (U) [Mass/Vol] 30 mg/dL Abnormal NEG/TRACE NO [facility] SPECIFIC GRAVITY URINE >=1.030 Abnormal 1.005 - 1.025 [facility] URINE MICROSCOPIC INDICATED YES [facility] UROBILINOGEN URINE 1.0 EU/dL 0.2 - 1.0 EU/dL [facility] ALL CBC WITH AUTO DIFFon BASOPHILS ABSOLUTE AUTO 0.1 [facility] Basophils/100 WBC (Bld) 0.5 % 0.2 - 2.0 % [facility] Eosinophils/100 WBC (Bld) 1.9 % 0.9 - 7.0 % [facility] Erythrocyte distribution width (RBC) [Ratio] 14.6 % 11.0 - 15.0 % [facility] Hematocrit (Bld) [Volume fraction] 50.9 % High 36.0 - 48.0 % [facility] Hemoglobin (Bld) [Mass/Vol] 16.1 g/dL High 12.0 - 16.0 g/dL [facility] IMMATURE GRANULOCYTES ABS AUTO 0.04 High [facility] Immature granulocytes/100 WBC (Bld) 0.3 % 0.0 - 0.5 % [facility] Interpretation and review of laboratory results Abnormal [facility] LYMPHOCYTES ABSOLUTE AUTO 3.2 [facility] Lymphocytes/100 WBC (Bld) 25.1 % 20.5 - 60.0 % [facility] MCH (RBC) [Entitic mass] 29.2 pg 26.7 - 34.0 pg [facility] MCHC (RBC) [Mass/Vol] 31.6 g/dL 29.9 - 35.2 g/dL [facility] MCV (RBC) [Entitic vol] 92.2 fL 81.0 - 99.0 fL [facility] MONOCYTES ABSOLUTE AUTO 0.7 [facility] Monocytes/100 WBC (Bld) 5.2 % 1.7 - 12.0 % [facility] NEUTROPHILS ABSOLUTE AUTO 8.6 High [facility] Neutrophils/100 WBC (Bld) 67 % 43.0 - 75.0 % [facility] Platelet mean volume (Bld) [Entitic vol] 12.8 fL 9.5 - 13.5 fL [facility] TBH EO # 0.2 [facility] TB PLT 122 Low [facility] TB RBC 5.52 High [facility] TBH WBC 12.8 High [facility] Office Visiton 08-08-2024 Follow-up visit [id number] Mitzi Macias 1970 F Date Provider Department Center 08/08/2024 [id number] [id number] [facility] Family History Problem Relation Age of Onset Heart attack Paternal Grandmother Family Status - Relation Status Age at Paternal Grandmother Level of Service:24562 [place] OFFICE/OUTPATIENT ESTABLISHED MOD MDM 30 MIN Reason for Visit and Comments: Congestive Heart Failure [127] - Denies chest pain, SOB, and palpitations. Hypertension [780592] Hyperlipidemia [182] LVH [Other] Edema [[id number]] - Denies worsening edema. She sees wound care for RLE ulcer. She was seeing the vein specialists here in town but they are moving to [place] in a few weeks. Normal [facility] Glucose (Bld) [Mass/Vol]Orde red By: Mica Sauceda on 05-27-2024 Glucose Blood, POC 158 mg/dL [facility] - Hematology and Cell countson 05-27-2024 HbA1c (Bld) [Mass fraction] 9.2 % [facility] No Panel InformationOrdered By: Mica Sauceda on 05-27-2024 [facility] CREATININEon 05-12-2024 Creatinine [Mass/Vol] 0.92 mg/dL 0.55 - 1.02 mg/dL [facility] GFR/1.73 sq M.predicted CKD-EPI (S/P/Bld) [Vol rate/Area] >60 >=60 mL/min/1.73m 2 [facility] EGFR-NON AF TURKMEN >60 >=60 mL/min/1.73m 2 [facility] CBC AUTO DIFFon 12-06-2022 BASO # 0.0 103/ul Normal 0.0-0.1 [facility] Comment on above: Performed By: #### C BC #### [facility] [address] [address] [address] Ashlie Hills Basophils/100 WBC (Bld) 0.1 % Critically low 0.2-2.[address] [facility] Comment on above: Performed By: #### C BC #### [facility] [address] [place], [place] [address] [address]. Ashlie Hills EO # 0.0 103/ul Normal 0.0-0.7 [facility] Comment on above: Performed By: #### C BC #### [facility] [address] [address] [address] Ashlie Hills Eosinophils/100 WBC (Bld) 0.0 % Critically low 0.9-7.0 [facility] Comment on above: Performed By: #### C BC #### [facility] [address] [place] [address] Dr. Ashlie Hills Erythrocyte distribution width (RBC) [Ratio] 14.9 % Normal 11.0-15.0 [facility] Comment on above: Performed By: #### C BC #### [facility] [address] [place] [address] Dr. Ashlie Hills Hematocrit (Bld) [Volume fraction] 46.2 % Normal 36.0-48.0 [facility] Comment on above: Performed By: #### C BC #### [facility] [address] [place] [address] Dr. Ashlie Hills Hemoglobin (Bld) [Mass/Vol] 14.7 g/dL Normal 12.0-16.0 [facility] Comment on above: Performed By: #### C BC #### [facility] [address] [place] [address] Dr. Ashlie Hills IG # 0.06 10e3/ul Critically high 0.00-0.03 [facility] Comment on above: Performed By: #### C BC #### [facility] [address] [place] [address] Dr. Ashlie Hills IG % 0.4 % Normal 0.0-0.5 [facility] Comment on above: Performed By: #### C BC #### [facility] [address] [place] [address] Dr. Ashlie Hills LYMPH # 1.3 103/ul Normal 1.2-3.8 [facility] Comment on above: Performed By: #### C BC #### [facility] [address] [place] [address] Dr. Ashlie Hills Lymphocytes/100 WBC (Bld) 9.4 % Critically low 20.5-60.0 [facility] Comment on above: Performed By: #### C BC #### [facility] [address] [place] [address] Dr. Ashlie Hills MANUAL DIFF REQ NO Normal [facility] Comment on above: Performed By: #### C BC #### [facility] [address] [place] [address] Dr. Ashlie Hills MCH (RBC) [Entitic mass] 28.4 pg Normal 26.7-34.0 [facility] Comment on above: Performed By: #### C BC #### [facility] [address] [place] [address] Dr. Ashlie Hills MCHC (RBC) [Mass/Vol] 31.8 g/dL Normal 29.9-35.2 [facility] Comment on above: Performed By: #### C BC #### [facility] [address] [place] [address] Dr. Ashlie Hills MCV (RBC) [Entitic vol] 89.4 fL Normal 81.0-99.0 [facility] Comment on above: Performed By: #### C BC #### [facility] [address] [place] [address] Dr. Ashlie Hills MONO # 0.5 103/ul Normal 0.3-0.8 [facility] Comment on above: Performed By: #### C BC #### [facility] [address] [place] [address] Dr. Ashlie Hills Monocytes/100 WBC (Bld) 3.4 % Normal 1.7-12.0 [facility] Comment on above: Performed By: #### C BC #### [facility] [address] [place] [address] Dr. Ashlie Hills NEUT # 11.8 103/ul Critically high 1.4-6.5 [facility] Comment on above: Performed By: #### C BC #### [facility] [address] [place] [address] Dr. Ashlie Hills Neutrophils/100 WBC (Bld) 86.7 % Critically high 43.0-75.0 [facility] Comment on above: Performed By: #### C BC #### [facility] [address] [address] [address] Ashlie Hills Platelet mean volume (Bld) [Entitic vol] 12.6 fL Normal 9.5-13.5 [facility] Comment on above: Performed By: #### C BC #### [facility] [address] [place] [address] Dr. Ashlie Hills PLT 133 103/ul Critically low 150-450 [facility] Comment on above: Performed By: #### C BC #### [facility] [address] [place] [address] Dr. Ashlie Hills RBC 5.17 106/ul Normal 4.20-5.40 [facility] Comment on above: Performed By: #### C BC #### [facility] [address] [place] [address] Dr. Ashlie Hills WBC 13.6 103/ul Critically high 4.0-11.0 [facility] Comment on above: Performed By: #### C BC #### [facility] [address] [place] [address] Dr. Ashlie Hills MAGNESIUMon 12-06-2022 Magnesium [Mass/Vol] 2.2 mg/dL Normal 1.8-2.4 [facility] Comment on above: Performed By: #### I NFLUAB #### [facility] [address] [place] [address] Dr. Ashlie Hills POINT OF CARE GLUCOSEon 11-08 Glucose [Mass/Vol] 340 mg/dL Critically high 74-106 [facility] Comment on above: Performed By: #### P OCGLUC #### [facility] [address] [place] [address] Dr. Ashlie Hills Glucose [Mass/Vol] 276 mg/dL Critically high 74-106 [facility] Comment on above: Performed By: #### C BC #### [facility] [address] [place] [address] Dr. Ashlie Hills Glucose [Mass/Vol] 333 mg/dL Critically high -106 [facility] Comment on above: Performed By: #### C BC #### [facility] [address] [address] [address] Ashlie Hills PROF CHEM 8 (BAS METB)on Anion gap [Moles/Vol] 10.9 mmol/L Normal [facility] Comment on above: Performed By: #### I NFLUAB #### [facility] [address] [place] [address] Dr. Ashlie Hills Calcium [Mass/Vol] 9.3 mg/dL Normal 8.5-10.1 [facility] Comment on above: Performed By: #### I NFLUAB #### [facility] [address] [address] [address] Ashlie Hills Chloride [Moles/Vol] 103 mmol/L Normal 98-107 [facility] Comment on above: Performed By: #### I NFLUAB #### [facility] [address] [place] [address] Dr. Ashlie Hills CO2 [Moles/Vol] 31.2 mmol/L Normal 21.0-32.0 [facility] Comment on above: Performed By: #### I NFLUAB #### [facility] [address] [place] [address] Dr. Ashlie Hills Creatinine [Mass/Vol] 0.96 mg/dL Normal 0.55-1.02 [facility] Comment on above: Performed By: #### I NFLUAB #### [facility] [address] [place] [address] Dr. Ashlie Hills EGFR-AF TURKMEN >60 Normal >=60 [facility] Comment on above: Performed By: #### I NFLUAB #### [facility] [address] [place] [address] Dr. Ashlie Hills EGFR-NON AF TURKMEN >60 Normal >=60 [facility] Comment on above: Performed By: #### I NFLUAB #### [facility] [address] [place] [address] Dr. Ashlie Hills Glucose [Mass/Vol] 288 mg/dL Critically high 74-106 [facility] Comment on above: Performed By: #### I NFLUAB #### [facility] [address] [address] [address] Ashlie Hills Potassium [Moles/Vol] 5.1 mmol/L Normal 3.5-5.1 [facility] Comment on above: Performed By: #### I NFLUAB #### [facility] [address] [place] [address] Dr. Ashlie Hills Sodium [Moles/Vol] 140 mmol/L Normal 136-145 [facility] Comment on above: Performed By: #### I NFLUAB #### [facility] [address] [place] [address] Dr. Ashlie Hills Urea nitrogen [Mass/Vol] 30.0 mg/dL Critically high 7.0-18.0 [facility] Comment on above: Performed By: #### I NFLUAB #### [facility] [address] [place] [address] Dr. Ashlie Hills Urea nitrogen/Creatinine [Mass ratio] 31.2 mg/mg Normal [facility] Comment on above: Performed By: #### I NFLUAB #### [facility] [address] [place] [address] Dr. Ashlie Hills CBC AUTO DIFFon 12-05-2022 BASO # 0.0 103/ul Normal 0.0-0.1 [facility] Comment on above: Performed By: #### C BC #### [facility] [address] [place] [address] Dr. Ashlie Hills Basophils/100 WBC (Bld) 0.4 % Normal 0.2-2.0 [facility] Comment on above: Performed By: #### C BC #### [facility] [address] [place] [address] Dr. Ashlie Hills EO # 0.0 103/ul Normal 0.0-0.7 [facility] Comment on above: Performed By: #### C BC #### [facility] [address] [place] [address] Dr. Ashlie Hills Eosinophils/100 WBC (Bld) 0.0 % Critically low 0.9-7.0 [facility] Comment on above: Performed By: #### C BC #### [facility] [address] [place] [address] Dr. Ashlie Hills Erythrocyte distribution width (RBC) [Ratio] 14.8 % Normal 11.0-15.0 [facility] Comment on above: Performed By: #### C BC #### [facility] [address] [place] [address] Dr. Ashlie Hills Hematocrit (Bld) [Volume fraction] 49.9 % Critically high 36.0-48.0 [facility] Comment on above: Performed By: #### C BC #### [facility] [address] [place] [address] Dr. Ashlie Hills Hemoglobin (Bld) [Mass/Vol] 15.7 g/dL Normal 12.0-16.0 [facility] Comment on above: Performed By: #### C BC #### [facility] [address] [place] [address] Dr. Ashlie Hills IG # 0.04 10e3/ul Critically high 0.00-0.03 [facility] Comment on above: Performed By: #### C BC #### [facility] [address] [place] [address] Dr. Ashlie Hills IG % 0.5 % Normal 0.0-0.5 [facility] Comment on above: Performed By: #### C BC #### [facility] [address] [place] [address] Dr. Ashlie Hills LYMPH # 1.1 103/ul Critically low 1.2-3.8 [facility] Comment on above: Performed By: #### C BC #### [facility] [address] [place] [address] Dr. Ashlie Hills Lymphocytes/100 WBC (Bld) 12.7 % Critically low 20.5-60.0 [facility] Comment on above: Performed By: #### C BC #### [facility] [address] [place] [address] Dr. Ashlie Hills MANUAL DIFF REQ NO Normal [facility] Comment on above: Performed By: #### C BC #### [facility] [address] [address] [address] Ashlie Hills MCH (RBC) [Entitic mass] 28.1 pg Normal 26.7-34.0 [facility] Comment on above: Performed By: #### C BC #### [facility] [address] [address] [address] Ashlie Hills MCHC (RBC) [Mass/Vol] 31.5 g/dL Normal 29.9-35.2 [facility] Comment on above: Performed By: #### C BC #### [facility] [address] [address] [address] Ashlie Hills MCV (RBC) [Entitic vol] 89.3 fL Normal 81.0-99.0 [facility] Comment on above: Performed By: #### C BC #### [facility] [address] [place] [address] Dr. Ashlie Hills MONO # 0.1 103/ul Critically low 0.3-0.8 [facility] Comment on above: Performed By: #### C BC #### [facility] [address] [address] [address] Ashlie Hills Monocytes/100 WBC (Bld) 1.3 % Critically low 1.7-12.0 [facility] Comment on above: Performed By: #### C BC #### [facility] [address] [address] [address] Ashlie Hills NEUT # 7.2 103/ul Critically high 1.4-6.5 [facility] Comment on above: Performed By: #### C BC #### [facility] [address] [address] [address] Ashlie Hills Neutrophils/100 WBC (Bld) 85.1 % Critically high 43.0-75.[address] [facility] Comment on above: Performed By: #### C BC #### [facility] [address] [place] [address] Dr. Ashlie Hills Platelet mean volume (Bld) [Entitic vol] 12.2 fL Normal 9.5-13.[address] [facility] Comment on above: Performed By: #### C BC #### [facility] [address] [place], [place] [address] Dr. Ashlie Hills PLT 116 103/ul Critically low 150-450 [facility] Comment on above: Performed By: #### C BC #### [facility] [address] [place], [place] [address] Dr. Ashlie Hills RBC 5.59 106/ul Critically high 4.20-5.40 [facility] Comment on above: Performed By: #### C BC #### [facility] [address] [place], [place] [address] Dr. Ashlie Hills WBC 8.5 103/ul Normal 4.0-11.0 [facility] Comment on above: Performed By: #### C BC #### [facility] [address] [place], [place] [address] Dr. Ashlie Hills CTA CHEST WO W [...] HATTIE GOFF Date: 2022-12-05 01:52 Normal [facility] MAGNESIUMon 12-05-2022 Magnesium [Mass/Vol] 2.1 mg/dL Normal 1.8-2.4 [facility] Comment on above: Performed By: #### P OCGLUC #### [facility] [address] [address] [address] Ashlie Hills POINT OF CARE GLUCOSEon 11-08 Glucose [Mass/Vol] 293 mg/dL Critically high [address] [place] [address] Comment on above: Performed By: #### P OCGLUC #### [facility] [address] [address] [address] Ashlie Hills Glucose [Mass/Vol] 269 mg/dL Critically high [address] [place] [address] Comment on above: Performed By: #### P OCGLUC #### [facility] [address] [address] [address] Ashlie Hills Glucose [Mass/Vol] 223 mg/dL Critically high [address] [place] [address] Comment on above: Performed By: #### C VDAGS #### [facility] [address] [address] [address] Ashlie Hills PROF CHEM 8 (BAS METB)on Anion gap [Moles/Vol] 11.6 mmol/L Normal [facility] Comment on above: Performed By: #### P OCGLUC #### [facility] [address] [address] [address] Ashlie Hills Calcium [Mass/Vol] 9.2 mg/dL Normal 8.5-10.1 [facility] Comment on above: Performed By: #### P OCGLUC #### [facility] [address] [address] [address] Ashlie Hills Chloride [Moles/Vol] 102 mmol/L Normal 98-107 [facility] Comment on above: Performed By: #### P OCGLUC #### [facility] [address] [address] [address] Ashlie Hills CO2 [Moles/Vol] 28.7 mmol/L Normal 21.0-32.0 [facility] Comment on above: Performed By: #### P OCGLUC #### [facility] [address] [address] [address] Ashlie Hills Creatinine [Mass/Vol] 1.04 mg/dL Critically high 0.55-1.02 [facility] Comment on above: Performed By: #### P OCGLUC #### [facility] [address] [address] [address] Ashlie Hills EGFR-AF TURKMEN >60 Normal >=60 [facility] Comment on above: Performed By: #### P OCGLUC #### [facility] [address] [address] [address] Ashlie Hills EGFR-NON AF TURKMEN 56 mL/min/1.73m2 Critically low >=60 [facility] Comment on above: Performed By: #### P OCGLUC #### [facility] [address] [address] [address] Ashlie Hills Glucose [Mass/Vol] 231 mg/dL Critically high 74-106 [facility] Comment on above: Performed By: #### P OCGLUC #### [facility] [address] [address] [address] Ashlie Hills Potassium [Moles/Vol] 4.3 mmol/L Normal 3.5-5.1 [facility] Comment on above: Performed By: #### P OCGLUC #### [facility] [address] [address] [address] Ashlie Hills Sodium [Moles/Vol] 138 mmol/L Normal 136-145 [facility] Comment on above: Performed By: #### P OCGLUC #### [facility] [address] [address] [address] Ashlie Hills Urea nitrogen [Mass/Vol] 17.0 mg/dL Normal 7.0-18.0 [facility] Comment on above: Performed By: #### P OCGLUC #### [facility] [address] [place] [address] Dr. Ashlie Hills Urea nitrogen/Creatinine [Mass ratio] 16.3 mg/mg Normal [facility] Comment on above: Performed By: #### P OCGLUC #### [facility] [address] [place] [address] Dr. Ashlie Hills RESPIRATORY PANEL PLUSon Adenovirus Not detected Normal NOT DETECTED [facility] Comment on above: Performed By: #### C VDAGS #### [facility] [address] [place] [address] Dr. Ashlie Shaffer. Parapertusis Not detected Normal NOT DETECTED [facility] Comment on above: Performed By: #### C VDAGS #### [facility] [address] [place] [address] Dr. Aslhie Shaffer. Pertussis Not detected Normal NOT DETECTED [facility] Comment on above: Performed By: #### C VDAGS #### [facility] [address] [place] [address] Dr. Ashlie Hills Chlamydia Pneumoniae Not detected Normal NOT DETECTED [facility] Comment on above: Performed By: #### C VDAGS #### [facility] [address] [place] [address] Dr. Ashlie Hills Coronavirus 229E Not detected Normal NOT DETECTED [facility] Comment on above: Performed By: #### C VDAGS #### [facility] [address] [place] [address] Dr. Ashlie Hills Coronavirus HKU1 Not detected Normal NOT DETECTED [facility] Comment on above: Performed By: #### C VDAGS #### [facility] [address] [place] [address] Dr. Ashlie Hills Coronavirus NL63 Not detected Normal NOT DETECTED [facility] Comment on above: Performed By: #### C VDAGS #### [facility] [address] [place] [address] Dr. Ashlie Hills Coronavirus OC43 Not detected Normal NOT DETECTED [facility] Comment on above: Performed By: #### C VDAGS #### [facility] [address] [address] [address] Ashlie Hills Influenza A H1 Not detected Normal NOT DETECTED [facility] Comment on above: Performed By: #### C VDAGS #### [facility] [address] [address] [address] Ashlie Hills Influenza A H1 2009 Not detected Normal NOT DETECTED [facility] Comment on above: Performed By: #### C VDAGS #### [facility] [address] [address] [address] Ashlie Hills Influenza A H3 Not detected Normal NOT DETECTED [facility] Comment on above: Performed By: #### C VDAGS #### [facility] [address] [place] [address] Dr. Ashlie Hills Influenza B Not detected Normal NOT DETECTED [facility] Comment on above: Performed By: #### C VDAGS #### [facility] [address] [place] [address] Dr. Ashlie Hills Metapneumovirus Not detected Normal NOT DETECTED [facility] Comment on above: Performed By: #### C VDAGS #### [facility] [address] [place] [address] Dr. Ashlie Hills Mycoplas. Pneumoniae Not detected Normal NOT DETECTED [facility] Comment on above: Performed By: #### C VDAGS #### [facility] [address] [address] [address] Ashlie Hills Parainfluenza 1 Not detected Normal NOT DETECTED [facility] Comment on above: Performed By: #### C VDAGS #### [facility] [address] [address] [address] Ashlie Hills Parainfluenza 2 Not detected Normal NOT DETECTED [facility] Comment on above: Performed By: #### C VDAGS #### [facility] [address] [address] [address] Ashlie Hills Parainfluenza 3 Detected Abnormal NOT DETECTED [facility] Comment on above: Performed By: #### C VDAGS #### [facility] [address] [place] [address] Dr. Ashlie Hills Parainfluenza 4 Not detected Normal NOT DETECTED [facility] Comment on above: Performed By: #### C VDAGS #### [facility] [address] [place] [address] Dr. Ashlie Hills Rhino/Enterovirus Not detected Normal NOT DETECTED [facility] Comment on above: Performed By: #### C VDAGS #### [facility] [address] [place] [address] Dr. Ashlie Hills RP2 Header 1 RESPIRATORY PANEL: VIRUSES Normal [facility] Comment on above: Performed By: #### C VDAGS #### [facility] [address] [place] [address] Dr. Ashlie Hills RP2 Header 2 RESPIRATORY PANEL: BACTERIA Normal [facility] Comment on above: Performed By: #### C VDAGS #### [facility] [address] [place] [address] Dr. Ashlie Hills RSV Not detected Normal NOT DETECTED [facility] Comment on above: Performed By: #### C VDAGS #### [facility] [address] [place] [address] Dr. Ashlie Hills SARS-CoV-2 (COVID-19) RNA MADDY+probe Ql (Unsp spec) Not detected Normal NOT DETECTED [facility] Comment on above: Performed By: #### C VDAGS #### [facility] [address] [place] [address] Dr. Ashlie Hills XR CHEST 1 Von [...] by: MARYANNE POWER Date: 2022-12-04 22:23 Normal [facility] BLOOD GASES BTYon 12-04-2022 02 MODE ROOM AIR Normal [facility] Comment on above: Performed By: #### C BC #### [facility] [address] [place] [address] Dr. Ashlie Hills ALLENS TEST Positive Normal [facility] Comment on above: Performed By: #### C BC #### [facility] [address] [place] [address] Dr. Ashlie Hills Base excess Calc (Bld) [Moles/Vol] 5.4 mmol/L Critically high -2.0-2.0 [facility] Comment on above: Performed By: #### C BC #### [facility] [address] [address] [address] Ashlie Hills BIPAP PRESSURE [facility] Comment on above: Performed By: #### C BC #### [facility] [address] [place] [address] Dr. Ashlie Hills CPAP [facility] Comment on above: Performed By: #### C BC #### [facility] [address] [place] [address] Dr. Ashlie Hills FIO2 [facility] Comment on above: Performed By: #### C BC #### [facility] [address] [address] [address] Ashlie Hills HCO3 (Bld) [Moles/Vol] 30.8 mmol/L Critically high 22.0-26 .0 [facility] Comment on above: Performed By: #### C BC #### [facility] [address] [place] [address] Dr. Ashlie Hills LPM [facility] Comment on above: Performed By: #### C BC #### [facility] [address] [address] [address] Ashlie Hills MINUTE VOLUME Normal [facility] Comment on above: Performed By: #### C BC #### [facility] [address] [place] [address] Dr. Ashlie Hills Oxygen (Bld) [Partial pressure] 46.3 mm[Hg] Critically low 80.0-100.0 [facility] Comment on above: Performed By: #### C BC #### [facility] [address] [address] [address] Ashlie Hills Oxygen saturation in Blood 83.9 % Critically low 95.0-100.0 [facility] Comment on above: Performed By: #### C BC #### [facility] [address] [address] [address] Ashlie Hills PCO2 54.2 mmHg Critically high 35.0-45.0 [facility] Comment on above: Performed By: #### C BC #### [facility] [address] [address] [address] Ashlie Hills [facility] Comment on above: Performed By: #### C BC #### [facility] [address] [place] [address] Dr. Ashlie Hills pH (Bld) 7.363 [pH] Normal 7.350-7.450 [facility] Comment on above: Performed By: #### C BC #### [facility] [address] [place] [address] Dr. Ashlie Hills [facility] Comment on above: Performed By: #### C BC #### [facility] [address] [address] [address] Ashlie Hills PS [facility] Comment on above: Performed By: #### C BC #### [facility] [address] [place] [address] Dr. Ashlie Hills PUNCTURE SITE LR [facility] Comment on above: Performed By: #### C BC #### [facility] [address] [place] [address] Dr. Ashlie Hills RATE [facility] Comment on above: Performed By: #### C BC #### [facility] [address] [place] [address] Dr. Ashlie Hills VENT MODE [facility] Comment on above: Performed By: #### C BC #### [facility] [address] [place] [address] Dr. Ashlie Hills [facility] Comment on above: Performed By: #### C BC #### [facility] [address] [place] [address] Dr. Ashlie Hills BNPon 12-04-2022 Natriuretic peptide B (Bld) [Mass/Vol] 76.0 pg/mL Normal <=900.[address] [facility] Comment on above: Performed By: #### P OCGLUC #### [facility] [address] [place] [address] Dr. Ashlie Hills CBC AUTO DIFFon 12-04-2022 BASO # 0.1 103/ul Normal 0.0-0.1 [facility] Comment on above: Performed By: #### C BC #### [facility] [address] [place] [address] Dr. Ashlie Hills Basophils/100 WBC (Bld) 0.6 % Normal 0.2-2.0 [facility] Comment on above: Performed By: #### C BC #### [facility] [address] [place] [address] Dr. Ashlie Hills EO # 0.2 103/ul Normal 0.0-0.7 [facility] Comment on above: Performed By: #### C BC #### [facility] [address] [place] [address] Dr. Ashlie Hills Eosinophils/100 WBC (Bld) 1.9 % Normal 0.9-7.0 [facility] Comment on above: Performed By: #### C BC #### [facility] [address] [place] [address] Dr. Ashlie Hills Erythrocyte distribution width (RBC) [Ratio] 15.0 % Normal 11.0-15.0 [facility] Comment on above: Performed By: #### C BC #### [facility] [address] [place] [address] Dr. Ashlie Hills Hematocrit (Bld) [Volume fraction] 49.1 % Critically high 36.0-48.0 [facility] Comment on above: Performed By: #### C BC #### [facility] [address] [place] [address] Dr. Ashlie Hills Hemoglobin (Bld) [Mass/Vol] 15.6 g/dL Normal 12.0-16.0 [facility] Comment on above: Performed By: #### C BC #### [facility] [address] [place] [address] Dr. Ashlie Hills IG # 0.02 10e3/ul Normal 0.00-0.03 [facility] Comment on above: Performed By: #### C BC #### [facility] [address] [place] [address] Dr. Ashlie Hills IG % 0.2 % Normal 0.0-0.5 [facility] Comment on above: Performed By: #### C BC #### [facility] [address] [place] [address] Dr. Ashlie Hills LYMPH # 2.8 103/ul Normal 1.2-3.8 [facility] Comment on above: Performed By: #### C BC #### [facility] [address] [place] [address] Dr. Ashlie Hills Lymphocytes/100 WBC (Bld) 29.9 % Normal 20.5-60.0 [facility] Comment on above: Performed By: #### C BC #### [facility] [address] [place] [address] Dr. Ashlie Hills MANUAL DIFF REQ NO Normal [facility] Comment on above: Performed By: #### C BC #### [facility] [address] [place] [address] Dr. Ashlie Hills MCH (RBC) [Entitic mass] 28.5 pg Normal 26.7-34.0 [facility] Comment on above: Performed By: #### C BC #### [facility] [address] [place] [address] Dr. Ashlie Hills MCHC (RBC) [Mass/Vol] 31.8 g/dL Normal 29.9-35.2 [facility] Comment on above: Performed By: #### C BC #### [facility] [address] [place] [address] Dr. Ashlie Hills MCV (RBC) [Entitic vol] 89.8 fL Normal 81.0-99.0 [facility] Comment on above: Performed By: #### C BC #### [facility] [address] [place] [address] Dr. Ashlie Hills MONO # 1.0 103/ul Critically high 0.3-0.8 [facility] Comment on above: Performed By: #### C BC #### [facility] [address] [place] [address] Dr. Ashlie Hills Monocytes/100 WBC (Bld) 10.6 % Normal 1.7-12.0 [facility] Comment on above: Performed By: #### C BC #### [facility] [address] [place] [address] Dr. Ashlie Hills NEUT # 5.3 103/ul Normal 1.4-6.5 [facility] Comment on above: Performed By: #### C BC #### [facility] [address] [place] [address] Dr. Ashlie Hills Neutrophils/100 WBC (Bld) 56.8 % Normal 43.0-75.0 [facility] Comment on above: Performed By: #### C BC #### [facility] [address] [place] [address] Dr. Ashlie Hills Platelet mean volume (Bld) [Entitic vol] 12.5 fL Normal 9.5-13.5 [facility] Comment on above: Performed By: #### C BC #### [facility] [facility] [address] [place] [address] Dr. Ashlie Hills PLT 109 103/ul Critically low 150-450 [facility] Comment on above: Performed By: #### C BC #### [facility] [address] [place], [place] [id number] Dr. Ashlie Hills RBC 5.47 106/ul Critically high 4.20-5.40 [facility] Comment on above: Performed By: #### C BC #### [facility] [address] [place] [address] Dr. Ashlie Hills WBC 9.4 103/ul Normal 4.0-11.0 [facility] Comment on above: Performed By: #### C BC #### [facility] [address] [place] [address] Dr. Ashlie Hills PROF 14(COMP METB)on 023 Albumin [Mass/Vol] 2.9 g/dL Critically low 3.4-5.[address] [facility] Comment on above: Performed By: #### C BC #### [facility] [address] [place] [address] Dr. Ashlie Hills Albumin/Globulin [Mass ratio] 0.6 {ratio} Normal [facility] Comment on above: Performed By: #### C BC #### [facility] [address] [place] [address] Dr. Ashlie Hills ALP [Catalytic activity/Vol] 64 U/L Normal 46-116 [facility] Comment on above: Performed By: #### C BC #### [facility] [address] [place] [address] Dr. Ashlie Hills ALT [Catalytic activity/Vol] 16 U/L Normal 14-59 [facility] Comment on above: Performed By: #### C BC #### [facility] [address] [place] [address] Dr. Ashlie Hills Anion gap [Moles/Vol] 9.6 mmol/L Normal [facility] Comment on above: Performed By: #### C BC #### [facility] [address] [place] [address] Dr. Ashlie Hills AST [Catalytic activity/Vol] 16 U/L Normal 15-37 [facility] Comment on above: Performed By: #### C BC #### [facility] [address] [place] [address] Dr. Ashlie Hills Bilirubin [Mass/Vol] 0.5 mg/dL Normal 0.2-1.0 [facility] Comment on above: Performed By: #### C BC #### [facility] [address] [place] [address] Dr. Ashlie Hills Calcium [Mass/Vol] 8.7 mg/dL Normal 8.5-10.1 [facility] Comment on above: Performed By: #### C BC #### [facility] [address] [place] [address] Dr. Ashlie Hills Chloride [Moles/Vol] 103 mmol/L Normal 98-107 [facility] Comment on above: Performed By: #### C BC #### [facility] [address] [address] [address] Ashlie Hills CO2 [Moles/Vol] 30.7 mmol/L Normal 21.0-32.0 [facility] Comment on above: Performed By: #### C BC #### [facility] [address] [place] [address] Dr. Ashlie Hills Creatinine [Mass/Vol] 0.96 mg/dL Normal 0.55-1.02 [facility] Comment on above: Performed By: #### C BC #### [facility] [address] [place] [address] Dr. Ashlie Hills EGFR-AF TURKMEN >60 Normal >=60 [facility] Comment on above: Performed By: #### C BC #### [facility] [address] [place] [address] Dr. Ashlie Hills EGFR-NON AF TURKMEN >60 Normal >=60 [facility] Comment on above: Performed By: #### C BC #### [facility] [address] [place] [address] Dr. Ashlie Hills Globulin (S) [Mass/Vol] 4.7 g/dL Normal [facility] Comment on above: Performed By: #### C BC #### [facility] [address] [place] [address] Dr. Ashlie Hills Glucose [Mass/Vol] 170 mg/dL Critically high 74-106 [facility] Comment on above: Performed By: #### C BC #### [facility] [address] [place] [address] Dr. Ashlie Hills Potassium [Moles/Vol] 4.3 mmol/L Normal 3.5-5.1 [facility] Comment on above: Performed By: #### C BC #### [facility] [address] [place] [address] Dr. Ashlie Hills Protein [Mass/Vol] 7.6 g/dL Normal 6.4-8.2 [facility] Comment on above: Performed By: #### C BC #### [facility] [address] [place] [address] Dr. Ashlie Hills Sodium [Moles/Vol] 139 mmol/L Normal 136-145 [facility] Comment on above: Performed By: #### C BC #### [facility] [address] [address] [address] Ashlie Hills Urea nitrogen [Mass/Vol] 16.0 mg/dL Normal 7.0-18.0 [facility] Comment on above: Performed By: #### C BC #### [facility] [address] [place] [address] Dr. Ashlie Hills Urea nitrogen/Creatinine [Mass ratio] 16.7 mg/mg Normal [facility] Comment on above: Performed By: #### C BC #### [facility] [address] [place] [address] Dr. Ashlie Hills SYMPTOMATIC COVID-19 ANTIGEN on 12-04-2022 EUA Statement SEE BELOW Normal [facility] Comment on above: Result Comment: This test [...] By: #### C VDAGS #### [facility] [address] [place] [address] Dr. Ashlie Hills SARS-CoV-2 (COVID-19) RNA MADDY+probe Ql (Unsp spec) Negative Normal NEGATIVE [facility] Comment on above: Performed By: #### C VDAGS #### [facility] [address] [place] [address] Dr. Ashlie Hills TROPONIN, HIGH SENSITIVITYon 12-04-2022 HSTROP 8.9 pg/mL Normal 4.0-51.[address] [facility] Comment on above: Result Comment: CUT- OFF POINTS HAVE BEEN ESTABLISHED BASED ON THE FOURTH UNIVERSAL DEFINITIONS OF MYOCARDIAL INFARCTION. THE UPPER REFERENCE LIMIT (URL) OF TROPONIN, DEFINED THE 99TH PERCENTILE OF cTnI DISTRIBUTION IN A REFERENCE POPULATION, HAS BEEN CONFIRMED THE DECISION THRESHOLD FOR SC DIAGNOSIS. Performed By: #### P OCGLUC #### [facility] [address] [place] [address] Dr. Ashlie Hills MICROALBUMIN, RAND URon 11-06 mALB 35.8 mg/dL Critically high <=30.0 [facility] Comment on above: Performed By: #### C VDAGS #### [facility] [address] [place] [address] Dr. Ashlie Hills UA RANDOM W/MICROSCOPICon BACTERIA NONE SEEN Normal NONE SEEN [facility] Comment on above: Performed By: #### C VDAGS #### [facility] [address] [place] [address] Dr. Ashlie Hills Bilirubin Ql (U) Negative Normal NEGATIVE [facility] Comment on above: Performed By: #### C VDAGS #### [facility] [address] [place] [address] Dr. Ashlie Hills CAST SEEN Abnormal NONE SEEN [facility] Comment on above: Performed By: #### C VDAGS #### [facility] [address] [place] [address] Dr. Ashlie Hills Clarity (U) CLEAR Normal CLEAR [facility] Comment on above: Performed By: #### C VDAGS #### [facility] [address] [place] [address] Dr. Ashlie Hills Color (U) YELLOW Normal YELLOW [facility] Comment on above: Performed By: #### C VDAGS #### [facility] [address] [place] [address] Dr. Ashlie Hills Crystals LM Nom (Urine sed) NONE SEEN Normal NONE SEEN [facility] Comment on above: Performed By: #### C VDAGS #### [facility] [address] [place] [address] Dr. Ashlie Hills Epithelial cells LM Ql (Urine sed) MODERATE Abnormal NONE SEEN /RARE [facility] Comment on above: Performed By: #### C VDAGS #### [facility] [address] [place] [address] Dr. Ashlie Hills Glucose Ql (U) Negative Normal NEGATIVE The [facility] Comment on above: Performed By: #### C VDAGS #### [facility] [address] [place] [address] Dr. Ashlie Hills Hemoglobin Ql (U) TRACE-INTACT Abnormal NEGATIVE [facility] Comment on above: Performed By: #### C VDAGS #### [facility] [address] [place] [address] Dr. Ashlie Hills Ketones Ql (U) Negative Normal NEGATIVE The [facility] Comment on above: Performed By: #### C VDAGS #### [facility] [address] [place] [address] Dr. Ashlie Hills LEUKOCYTES Negative Normal NEGATIVE [facility] Comment on above: Performed By: #### C VDAGS #### [facility] [address] [place] [address] Dr. Ashlie Hills MUCOUS NONE SEEN Normal NONE SEEN [facility] Comment on above: Performed By: #### C VDAGS #### [facility] [address] [place] [address] Dr. Ashlie Hills Nitrite Ql (U) Negative Normal NEGATIVE [facility] Comment on above: Performed By: #### C VDAGS #### [facility] [address] [place] [address] Dr. Ashlie Hills pH (U) 5.0 [pH] Normal 5-[address] [facility] Comment on above: Performed By: #### C VDAGS #### [facility] [address] [place] [address] Dr. Ashlie Hills RBC 0-2 Normal 0-[address] [facility] Comment on above: Performed By: #### C VDAGS #### [facility] [address] [place] [address] Dr. Ashlie Hills SPEC GRAVITY 1.030 Abnormal 1.005-<=1.025 [facility] Comment on above: Performed By: #### C VDAGS #### [facility] [address] [place] [address] Dr. Ashlie Hills UA PROTEIN 100 mg/dl Abnormal NEGATIVE/ TRACE [facility] Comment on above: Performed By: #### C VDAGS #### [facility] [address] [place] [address] Dr. Ashlie Hills Urobilinogen Qn (U) 0.2 {Little'U}/dL Normal 0.2 - 1. 0 [facility] Comment on above: Performed By: #### C VDAGS #### [facility] [address] [place] [address] Dr. Ashlie Hills WBC NONE SEEN Normal NONE SEEN [facility] Comment on above: Performed By: #### C VDAGS #### [facility] [address] [place] [address] Dr. Ashlie Hills CBC AUTO DIFFon 11-22-2022 BASO # 0.0 103/ul Normal 0.0-0.1 [facility] Comment on above: Performed By: #### C BC #### [facility] [address] [place] [address] Dr. Ashlie Hills Basophils/100 WBC (Bld) 0.3 % Normal 0.2-2.[address] [facility] Comment on above: Performed By: #### C BC #### [facility] [address] [place] [address] Dr. Ashlie Hills EO # 0.4 103/ul Normal 0.0-0.[address] [facility] Comment on above: Performed By: #### C BC #### [facility] [address] [place] [address] Dr. Ashlie Hills Eosinophils/100 WBC (Bld) 3.0 % Normal 0.9-7.0 [facility] Comment on above: Performed By: #### C BC #### [facility] [address] [place] [address] Dr. Ashlie Hills Erythrocyte distribution width (RBC) [Ratio] 15.3 % Critically high 11.0-15.0 [facility] Comment on above: Performed By: #### C BC #### [facility] [address] [place] [address] Dr. Ashlie Hills Hematocrit (Bld) [Volume fraction] 52.4 % Critically high 36.0-48.0 [facility] Comment on above: Performed By: #### C BC #### [facility] [address] [place] [address] Dr. Ashlie Hills Hemoglobin (Bld) [Mass/Vol] 16.8 g/dL Critically high 12.0-16.0 [facility] Comment on above: Performed By: #### C BC #### [facility] [address] [place] [address] Dr. Ashlie Hills IG # 0.04 10e3/ul Critically high 0.00-0.03 [facility] Comment on above: Performed By: #### C BC #### [facility] [address] [place] [address] Dr. Ashlie Hills IG % 0.3 % Normal 0.0-0.5 [facility] Comment on above: Performed By: #### C BC #### [facility] [address] [place] [address] Dr. Ashlie Hills LYMPH # 4.5 103/ul Critically high 1.2-3.8 [facility] Comment on above: Performed By: #### C BC #### [facility] [address] [place] [address] Dr. Ashlie Hills Lymphocytes/100 WBC (Bld) 33.2 % Normal 20.5-60.0 [facility] Comment on above: Performed By: #### C BC #### [facility] [address] [place] [address] Dr. Aslhie Hills MANUAL DIFF REQ NO Normal [facility] Comment on above: Performed By: #### C BC #### [facility] [address] [place] [address] Dr. Ashlie Hills MCH (RBC) [Entitic mass] 28.0 pg Normal 26.7-34.0 [facility] Comment on above: Performed By: #### C BC #### [facility] [address] [place] [address] Dr. Ashlie Hills MCHC (RBC) [Mass/Vol] 32.1 g/dL Normal 29.9-35.2 [facility] Comment on above: Performed By: #### C BC #### [facility] [address] [place] [address] Dr. Ashlie Hills MCV (RBC) [Entitic vol] 87.3 fL Normal 81.0-99.0 [facility] Comment on above: Performed By: #### C BC #### [facility] [address] [place] [address] Dr. Ashlie Hills MONO # 0.8 103/ul Normal 0.3-0.[address] [facility] Comment on above: Performed By: #### C BC #### [facility] [address] [place] [address] Dr. Ashlie Hills Monocytes/100 WBC (Bld) 5.7 % Normal 1.7-12.[address] [facility] Comment on above: Performed By: #### C BC #### [facility] [address] [place] [address] Dr. Ashlie Hills NEUT # 7.8 103/ul Critically high 1.4-6.5 [facility] Comment on above: Performed By: #### C BC #### [facility] [address] [place] [address] Dr. Ashlie Hills Neutrophils/100 WBC (Bld) 57.5 % Normal 43.0-75.0 [facility] Comment on above: Performed By: #### C BC #### [facility] [address] [place] [address] Dr. Ashlie Hills Platelet mean volume (Bld) [Entitic vol] 12.0 fL Normal 9.5-13.5 [facility] Comment on above: Performed By: #### C BC #### [facility] [address] [place] [address] Dr. Ashlie Hills PLT 152 103/ul Normal 150-450 [facility] Comment on above: Performed By: #### C BC #### [facility] [address] [place] [address] Dr. Ashlie Hills RBC 6.00 106/ul Critically high 4.20-5.40 [facility] Comment on above: Performed By: #### C BC #### [facility] [address] [place] [address] Dr. Ashlie Hills WBC 13.6 103/ul Critically high 4.0-11.0 [facility] Comment on above: Performed By: #### C BC #### [facility] [address] [place] [address] Dr. Ashlie Hills LIPID PROFILEon 11-22-2022 CHOL-HDL RATIO NORM SEE BELOW Normal [facility] Comment on above: Result Comment: 3.3 - 4.4 LOW RISK 4.4 - 7.1 AVERAGE RISK 7.1 - 11.0 MODERATE RISK >11.0 HIGH RISK Performed By: #### C BC #### [facility] [address] [place] [address] Dr. Ashlie Hills Cholesterol [Mass/Vol] 139 mg/dL Normal <=200 [facility] Comment on above: Performed By: #### C BC #### [facility] [address] [place] [address] Dr. Ashlie Hills Cholesterol in HDL [Mass/Vol] 35 mg/dL Critically low 40-60 [facility] Comment on above: Performed By: #### C BC #### [facility] [address] [place] [address] Dr. Ashlie Hills Cholesterol in LDL [Mass/Vol] 67.4 mg/dL Normal [facility] Comment on above: Performed By: #### C BC #### [facility] [address] [place] [address] Dr. Ashlie Hills Cholesterol.total/Chol esterol in HDL [Mass ratio] 4.0 {ratio} Normal [facility] Comment on above: Performed By: #### C BC #### [facility] [address] [address] [address] Ashlie Hills HDL NORMAL > or = 60 mg/dl - LOW CARDIOVASCULAR RISK <40 mg/dl - HIGH CARDIOVASCULAR RISK Normal [facility] Comment on above: Performed By: #### C BC #### [facility] [address] [address] [address] Ashlie Hills LDL CALC NORMAL SEE BELOW Normal [facility] Comment on above: Result Comment: <100 mg/dl OPTIMAL 100 - 129 mg/dl NEAR OR ABOVE OPTIMAL 130 - 159 mg/dl BORDERLINE HIGH 160 - 189 mg/dl HIGH >190 mg/dl VERY HIGH Performed By: #### C BC #### [facility] [address] [address] [address] Ashlie Hills Triglyceride [Mass/Vol] 183 mg/dL Critically high <=150 [facility] Comment on above: Performed By: #### C BC #### [facility] [address] [address] [address] Ashlie Hills VLDL CALC 36.6 mg/dL Normal [facility] Comment on above: Performed By: #### C BC #### [facility] [address] [address] [address] 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 LOCATION: [facility] BREAST COMPOSITION: Almost entirely fatty. FINDINGS: [...] Veloz M.D. on 11/22/2022 at 12:09 Normal [facility] PROF 14(COMP METB)on 023 Albumin [Mass/Vol] 3.0 g/dL Critically low 3.4-5.0 [facility] Comment on above: Performed By: #### C BC #### [facility] [address] [place] [address] Dr. Ashlie Hills Albumin/Globulin [Mass ratio] 0.6 {ratio} Normal [facility] Comment on above: Performed By: #### C BC #### [facility] [address] [place] [address] Dr. Ashlie Hills ALP [Catalytic activity/Vol] 68 U/L Normal 46-116 [facility] Comment on above: Performed By: #### C BC #### [facility] [address] [address] [address] Ashlie Hills ALT [Catalytic activity/Vol] 14 U/L Normal 14-59 [facility] Comment on above: Performed By: #### C BC #### [facility] [address] [address] [address] Ashlie Hills Anion gap [Moles/Vol] 12.1 mmol/L Normal [facility] Comment on above: Performed By: #### C BC #### [facility] [address] [address] [address] Ashlie Hills AST [Catalytic activity/Vol] 9 U/L Critically low 15-37 [facility] Comment on above: Performed By: #### C BC #### [facility] [address] [address] [address] Ashlie Hills Bilirubin [Mass/Vol] 0.4 mg/dL Normal 0.2-1.0 [facility] Comment on above: Performed By: #### C BC #### [facility] [address] [address] [address] Ashlie Hills Calcium [Mass/Vol] 9.0 mg/dL Normal 8.5-10.1 [facility] Comment on above: Performed By: #### C BC #### [facility] [address] [place] [address] Dr. Ashlie Hills Chloride [Moles/Vol] 105 mmol/L Normal 98-107 [facility] Comment on above: Performed By: #### C BC #### [facility] [address] [address] [address] Ashlie Hills CO2 [Moles/Vol] 30.7 mmol/L Normal 21.0-32.0 [facility] Comment on above: Performed By: #### C BC #### [facility] [address] [place] [address] Dr. Ashlie Hills Creatinine [Mass/Vol] 0.77 mg/dL Normal 0.55-1.02 [facility] Comment on above: Performed By: #### C BC #### [facility] [address] [place] [address] Dr. Ashlie Hills EGFR-AF TURKMEN >60 Normal >=60 [facility] Comment on above: Performed By: #### C BC #### [facility] [address] [place] [address] Dr. Ashlie Hills EGFR-NON AF TURKMEN >60 Normal >=60 [facility] Comment on above: Performed By: #### C BC #### [facility] [address] [place] [address] Dr. Ashlie Hills Globulin (S) [Mass/Vol] 4.8 g/dL Normal [facility] Comment on above: Performed By: #### C BC #### [facility] [address] [place] [address] Dr. Ashlie Hills Glucose [Mass/Vol] 162 mg/dL Critically high 74-106 [facility] Comment on above: Performed By: #### C BC #### [facility] [address] [place] [address] Dr. Ashlie Hills Potassium [Moles/Vol] 3.8 mmol/L Normal 3.5-5.1 [facility] Comment on above: Performed By: #### C BC #### [facility] [address] [place] [address] Dr. Ashlie Hills Protein [Mass/Vol] 7.8 g/dL Normal 6.4-8.2 [facility] Comment on above: Performed By: #### C BC #### [facility] [address] [place] [address] Dr. Ashlie Hills Sodium [Moles/Vol] 144 mmol/L Normal 136-145 [facility] Comment on above: Performed By: #### C BC #### [facility] [address] [place] [address] Dr. Ashlie Hills Urea nitrogen [Mass/Vol] 24.0 mg/dL Critically high 7.0-18.0 [facility] Comment on above: Performed By: #### C BC #### [facility] [address] [place] [address] Dr. Ashlie Hills Urea nitrogen/Creatinine [Mass ratio] 31.2 mg/mg Normal [facility] Comment on above: Performed By: #### C BC #### [facility] [address] [place] [address] Dr. Ashlie Hills CBC AUTO DIFFon 10-05-2022 BASO # 0.1 103/ul Normal 0.0-0.1 [facility] Comment on above: Performed By: #### C BC #### [facility] [address] [place] [address] Dr. Ashlie Hills Basophils/100 WBC (Bld) 0.6 % Normal 0.2-2.0 [facility] Comment on above: Performed By: #### C BC #### [facility] [address] [place] [address] Dr. Ashlie Hills EO # 0.3 103/ul Normal 0.0-0.7 [facility] Comment on above: Performed By: #### C BC #### [facility] [address] [place] [address] Dr. Ashlie Hills Eosinophils/100 WBC (Bld) 2.1 % Normal 0.9-7.0 [facility] Comment on above: Performed By: #### C BC #### [facility] [address] [place] [address] Dr. Ashlie Hills Erythrocyte distribution width (RBC) [Ratio] 15.9 % Critically high 11.0-15.0 [facility] Comment on above: Performed By: #### C BC #### [facility] [address] [place] [address] Dr. Ashlie Hills Hematocrit (Bld) [Volume fraction] 51.8 % Critically high 36.0-48.0 [facility] Comment on above: Performed By: #### C BC #### [facility] [address] [place] [address] Dr. Ashlie Hills Hemoglobin (Bld) [Mass/Vol] 16.6 g/dL Critically high 12.0-16.0 [facility] Comment on above: Performed By: #### C BC #### [facility] [address] [place] [address] Dr. Ashlie Hills IG # 0.03 10e3/ul Normal 0.00-0.03 [facility] Comment on above: Performed By: #### C BC #### [facility] [address] [place] [address] Dr. Ashlie Hills IG % 0.2 % Normal 0.0-0.5 [facility] Comment on above: Performed By: #### C BC #### [facility] [address] [place] [address] Dr. Ashlie Hills LYMPH # 3.9 103/ul Critically high 1.2-3.8 [facility] Comment on above: Performed By: #### C BC #### [facility] [address] [place] [address] Dr. Ashlie Hills Lymphocytes/100 WBC (Bld) 31.7 % Normal 20.5-60.0 [facility] Comment on above: Performed By: #### C BC #### [facility] [address] [place] [address] Dr. Ashlie Hills MANUAL DIFF REQ NO Normal [facility] Comment on above: Performed By: #### C BC #### [facility] [address] [place] [address] Dr. Ashlie Hills MCH (RBC) [Entitic mass] 27.9 pg Normal 26.7-34.0 [facility] Comment on above: Performed By: #### C BC #### [facility] [address] [place] [address] Dr. Ashlie Hills MCHC (RBC) [Mass/Vol] 32.0 g/dL Normal 29.9-35.2 [facility] Comment on above: Performed By: #### C BC #### [facility] [address] [place] [address] Dr. Ashlie Hills MCV (RBC) [Entitic vol] 87.1 fL Normal 81.0-99.0 [facility] Comment on above: Performed By: #### C BC #### [facility] [address] [place] [address] Dr. Ashlie Hills MONO # 0.7 103/ul Normal 0.3-0.[address] [facility] Comment on above: Performed By: #### C BC #### [facility] [address] [place] [address] Dr. Ashlie Hills Monocytes/100 WBC (Bld) 5.8 % Normal 1.7-12.0 [facility] Comment on above: Performed By: #### C BC #### [facility] [address] [place] [address] Dr. Ashlie Hills NEUT # 7.3 103/ul Critically high 1.4-6.5 [facility] Comment on above: Performed By: #### C BC #### [facility] [address] [place] [address] Dr. Ashlie Hills Neutrophils/100 WBC (Bld) 59.6 % Normal 43.0-75.0 [facility] Comment on above: Performed By: #### C BC #### [facility] [address] [place] [address] Dr. Ashlie Hills Platelet mean volume (Bld) [Entitic vol] 11.7 fL Normal 9.5-13.5 [facility] Comment on above: Performed By: #### C BC #### [facility] [address] [place] [address] Dr. Ashlie Hills PLT 117 103/ul Critically low 150-450 [facility] Comment on above: Performed By: #### C BC #### [facility] [address] [place] [address] Dr. Ashlie Hills RBC 5.95 106/ul Critically high 4.20-5.40 [facility] Comment on above: Performed By: #### C BC #### [facility] [address] [place] [address] Dr. Ashlie Hills WBC 12.3 103/ul Critically high 4.0-11.0 [facility] Comment on above: Performed By: #### C BC #### [facility] [address] [place] [address] ABD/PELV W CONon [...] Date: 2022-10-05 13:13 Normal [facility] ER URINE PROFILEon 3 Bilirubin Ql (U) Negative Normal NEGATIVE [facility] Comment on above: Performed By: #### P OCGLUC #### [facility] [address] [place] [address] Dr. Ashlie Hills Clarity (U) CLEAR Normal CLEAR [facility] Comment on above: Performed By: #### P OCGLUC #### [facility] [address] [place] [address] Dr. Ashlie Hills Color (U) YELLOW Normal YELLOW [facility] Comment on above: Performed By: #### P OCGLUC #### [facility] [address] [address] [address] Ashlie Hills ERUAHD A micrscopic examination will be performed if indicated. Normal [facility] Comment on above: Performed By: #### P OCGLUC #### [facility] [address] [address] [address] Ashlie Hills Glucose Ql (U) Negative Normal NEGATIVE [facility] Comment on above: Performed By: #### P OCGLUC #### [facility] [address] [address] [address] Ashlie Hills Hemoglobin Ql (U) Negative Normal NEGATIVE [facility] Comment on above: Performed By: #### P OCGLUC #### [facility] [address] [place] [address] Dr. Ashlie Hills Ketones Ql (U) Negative Normal NEGATIVE [facility] Comment on above: Performed By: #### P OCGLUC #### [facility] [address] [place] [address] Dr. Ashlie Hills LEUKOCYTES Negative Normal NEGATIVE [facility] Comment on above: Performed By: #### P OCGLUC #### [facility] [address] [place] [address] Dr. Ashlie Hills Nitrite Ql (U) Negative Normal NEGATIVE [facility] Comment on above: Performed By: #### P OCGLUC #### [facility] [address] [place] [address] Dr. Ashlie Hills pH (U) 6.0 [pH] Normal 5-9 [facility] Comment on above: Performed By: #### P OCGLUC #### [facility] [address] [place] [address] Dr. Ashlie Hills Protein (U) [Mass/Vol] 100 mg/dL Abnormal NEGAT YURY/ TRACE [facility] Comment on above: Performed By: #### P OCGLUC #### [facility] [address] [place] [address] Dr. Ashlie Hills SPEC GRAVITY 1.010 Normal 1.005-<=1.025 [facility] Comment on above: Performed By: #### P OCGLUC #### [facility] [address] [place] [address] Dr. Ashlie Hills UR MICRO IND INDICATED Normal [facility] Comment on above: Performed By: #### P OCGLUC #### [facility] [address] [place] [address] Dr. Ashlie Hills Urobilinogen Qn (U) 1.0 {Little'U}/dL Normal 0.2 - 1. 0 [facility] Comment on above: Performed By: #### P OCGLUC #### [facility] [address] [place] [address] Dr. Ashlie Hills LIPASEon 10-05-2022 Lipase [Catalytic activity/Vol] 1771.0 U/L Critically high 73.0-393.0 [facility] Comment on above: Performed By: #### C BC #### [facility] [address] [place] [address] Dr. Ashlie Hills PREG HCG QUALon 10-05-2022 , QUAL Negative Normal NEGATIVE [facility] Comment on above: Performed By: #### P OCGLUC #### [facility] [address] [place] [address] Dr. Ashlie Hills PROF 14(COMP METB)on 023 Albumin [Mass/Vol] 3.2 g/dL Critically low 3.4-5.0 [facility] Comment on above: Performed By: #### C BC #### [facility] [address] [place] [address] Dr. Ashlie Hills Albumin/Globulin [Mass ratio] 0.7 {ratio} Normal [facility] Comment on above: Performed By: #### C BC #### [facility] [address] [place] [address] Dr. Ashlie Hills ALP [Catalytic activity/Vol] 70 U/L Normal 46-116 [facility] Comment on above: Performed By: #### C BC #### [facility] [address] [place] [address] Dr. Ashlie Hills ALT [Catalytic activity/Vol] 11 U/L Critically low 14-59 [facility] Comment on above: Performed By: #### C BC #### [facility] [address] [place] [address] Dr. Ashlie Hills Anion gap [Moles/Vol] 10.3 mmol/L Normal [facility] Comment on above: Performed By: #### C BC #### [facility] [address] [place] [address] Dr. Ashlie Hills AST [Catalytic activity/Vol] 11 U/L Critically low 15-37 [facility] Comment on above: Performed By: #### C BC #### [facility] [address] [place] [address] Dr. Ashlie Hills Bilirubin [Mass/Vol] 0.9 mg/dL Normal 0.2-1.0 [facility] Comment on above: Performed By: #### C BC #### [facility] [address] [place] [address] Dr. Ashlie Hills Calcium [Mass/Vol] 9.3 mg/dL Normal 8.5-10.1 [facility] Comment on above: Performed By: #### C BC #### [facility] [address] [place] [address] Dr. Ashlie Hills Chloride [Moles/Vol] 105 mmol/L Normal 98-[address] [facility] Comment on above: Performed By: #### C BC #### [facility] [address] [address] [address] Ashlie Hills CO2 [Moles/Vol] 30.6 mmol/L Normal 21.0-32.0 [facility] Comment on above: Performed By: #### C BC #### [facility] [address] [place] [address] Dr. Ashlie Hills Creatinine [Mass/Vol] 0.62 mg/dL Normal 0.55-1.[address] [facility] Comment on above: Performed By: #### C BC #### [facility] [address] [place] [address] Dr. Ashlie Hills EGFR-AF TURKMEN >60 Normal >=60 [facility] Comment on above: Performed By: #### C BC #### [facility] [address] [place] [address] Dr. Ashlie Hills EGFR-NON AF TURKMEN >60 Normal >=[address] [facility] Comment on above: Performed By: #### C BC #### [facility] [address] [place] [address] Dr. Ashlie Hills Globulin (S) [Mass/Vol] 4.6 g/dL Normal [facility] Comment on above: Performed By: #### C BC #### [facility] [address] [place] [address] Dr. Ashlie Hills Glucose [Mass/Vol] 85 mg/dL Normal 74-106 [facility] Comment on above: Performed By: #### C BC #### [facility] [address] [place] [address] Dr. Ashlie Hills Potassium [Moles/Vol] 3.9 mmol/L Normal 3.5-5.[address] [facility] Comment on above: Performed By: #### C BC #### [facility] [address] [address] [address] Ashlie Hills Protein [Mass/Vol] 7.8 g/dL Normal 6.4-8.2 [facility] Comment on above: Performed By: #### C BC #### [facility] [address] [address] [address] Ashlie Hills Sodium [Moles/Vol] 142 mmol/L Normal 136-145 [facility] Comment on above: Performed By: #### C BC #### [facility] [address] [address] [address] Ashlie Hills Urea nitrogen [Mass/Vol] 12.0 mg/dL Normal 7.0-18.0 [facility] Comment on above: Performed By: #### C BC #### [facility] [address] [place] [address] Dr. Ashlie Hills Urea nitrogen/Creatinine [Mass ratio] 19.4 mg/mg Normal [facility] Comment on above: Performed By: #### C BC #### [facility] [address] [address] [address] Ashlie Hills URINE MICROSCOPIC ONLYon BACTERIA TRACE Abnormal NONE SEEN [facility] Comment on above: Performed By: #### P OCGLUC #### [facility] [address] [place] [address] Dr. Ashlie Hills Bacteria identified Cx Nom (U) NOT INDICATED Normal [facility] Comment on above: Performed By: #### P OCGLUC #### [facility] [address] [place] [address] Dr. Ashlie Hills CAST NONE SEEN Normal NONE SEEN [facility] Comment on above: Performed By: #### P OCGLUC #### [facility] [address] [place] [address] Dr. Ashlie Hills Crystals LM Nom (Urine sed) NONE SEEN Normal NONE SEEN [facility] Comment on above: Performed By: #### P OCGLUC #### [facility] [address] [place] [address] Dr. Ashlie Hills Epithelial cells LM Ql (Urine sed) MODERATE Abnormal NONE SEEN /RARE [facility] Comment on above: Performed By: #### P OCGLUC #### [facility] [address] [place] [address] Dr. Ashlie Hills MUCOUS NONE SEEN Normal NONE SEEN [facility] Comment on above: Performed By: #### P OCGLUC #### [facility] [address] [place] [address] Dr. Ashlie Hills RBC 0-2 Normal 0-[address] [facility] Comment on above: Performed By: #### P OCGLUC #### [facility] [address] [place] [address] Dr. Ashlie Hills WBC 0-2 Abnormal NONE SEEN [facility] Comment on above: Performed By: #### P OCGLUC #### [facility] [address] [place] [address] Dr. Ashlie Hills Covid-19 PCR ([facility])on 09-06 SARS-CoV-2 (COVID-19) RNA MADDY+probe Ql (Unsp spec) Detected Abnormal NOT DETECTED [facility] Comment on above: Result Comment: This test is not yet approved or cleared by the [place] FDA. When there are no FDA-approved or cleared tests available, and other criteria are met, FDA can make tests available under an emergency access mechanism called an Emergency Use Authorization (EUA). The EUA for this test is supported by the [place] of Health and Human Service's declaration that [...] By: #### C VDAGS #### [facility] [address] [place] [address] Dr. Ashlie Hills INFLUENZA A AND B AGon 09-21 INFLUANEGH SEE BELOW Normal [facility] Comment on above: Result Comment: Nega tive for Flu A protein angiten. Infection due to Flu A cannot be ruled out. Flu A angiten in the sample may be below the detection limit of the test. Performed By: #### I NFLUAB #### [facility] [address] [place] [address] Dr. Ashlie Hills INFLUBNEG SEE BELOW Normal [facility] Comment on above: Result Comment: Nega tive for Flu B protein antigen. Infection due to Flu B cannot be ruled out. Flu B antigen in the sample may be below the detection limit of the test. Performed By: #### I NFLUAB #### [facility] [address] [place] [address] Dr. Ashlie Hills INFLUENZA A AG Negative Normal NEGATIVE SEE COMMENT [facility] Comment on above: Performed By: #### I NFLUAB #### [facility] [address] [place] [address] Dr. Ashlie Hills INFLUENZA B AG Negative Normal NEGATIVE SEE COMMENT [facility] Comment on above: Performed By: #### I NFLUAB #### [facility] [address] [place] [address] ABD/PELV W CONon [...] to at least 10/21/2018, unchanged. https://www.ncbi.nlm .nih.gov/pmc/article s/[email or web address]/ Electronically authenticated by: COLLIN HUERTAS Date: 2022-07-27 14:56 Normal [facility] CREATININEon 07-18-2022 Creatinine [Mass/Vol] 0.81 mg/dL Normal 0.55-1.02 [facility] Comment on above: Performed By: #### C BC #### [facility] [address] [place] [address] Dr. Ashlie Hills EGFR-AF TURKMEN >60 Normal >=60 [facility] Comment on above: Performed By: #### C BC #### [facility] [address] [place] [address] Dr. Ashlie Hills EGFR-NON AF TURKMEN >60 Normal >=60 [facility] Comment on above: Performed By: #### C BC #### [facility] [address] [place] [address] LOW EXT W [...] Date: 2022-07-18 14:58 Normal [facility] XR KNEE LT 1_2 Von XR [...] Date: 2022-07-18 12:00 Normal [address] [facility]-09 SARS-CoV-2 (COVID-19) RNA MADDY+probe Ql (Unsp spec) Not detected Normal NOT DETECTED [facility] Comment on above: Result Comment: This test is not yet approved or cleared by the [place] FDA. When there are no FDA-approved or cleared tests available, and other criteria are met, FDA can make tests available under an emergency access mechanism called an Emergency Use Authorization (EUA). The EUA for this test is supported by the [employer] of Health and Human Service's (HHS's) declaration [...] By: #### C BC #### [facility] [address] [place] [address] Dr. Ashlie Hills IN[facility]ENZA [facility] Normal [facility] Comment on above: Result Comment: Nega tive for Flu A protein angiten. Infection due to Flu A cannot be ruled out. Flu A angiten in the sample may be below the detection limit of the test. Performed By: #### C BC #### [facility] [address] [address] [address] Ashlie Hills INFLUBNEG SEE BELOW Normal [facility] Comment on above: Result Comment: Nega tive for Flu B protein antigen. Infection due to Flu B cannot be ruled out. Flu B antigen in the sample may be below the detection limit of the test. Performed By: #### C BC #### [facility] [address] [place] [address] Dr. Ashlie Hills INFLUENZA A AG Negative Normal NEGATIVE SEE COMMENT [facility] Comment on above: Performed By: #### C BC #### [facility] [address] [address] [address] Ashlie Hills INFLUENZA B AG Negative Normal NEGATIVE SEE COMMENT [facility] Comment on above: Performed By: #### C BC #### [facility] [address] [place] [address] Dr. Ashlie Hills POINT OF CARE GLUCOSEon 10- Glucose [Mass/Vol] 108 mg/dL Critically high 74-106 [facility] Comment on above: Performed By: #### C BC #### [facility] [address] [place] [address] Dr. Ashlie Hills RAGHU by IFAon 03-07-2022 Antinuclear Antibodies, IFA Negative Normal [facility] Comment on above: Result Comment: Nega tive <1:80 Borderline 1:80 Positive >1:80 ICAP nomenclature: AC-0 For more information about Hep-2 cell patterns use ANApatterns.org, the official website for the International Consensus on Antinuclear Antibody (RAGHU) Patterns (ICAP). Performed By: #### A NAIFA #### [facility] [address] [place] [address] Dr. Ashlie Hills IMMUNOFIXATION (TREVON), URINEo n 03-07-2022 TREVON Interpretation:U Comment Normal [facility] Comment on above: Result Comment: No m onoclonality detected. Performed By: #### C BC #### [facility] [address] [place] [address] Dr. Ashlie Hills IMMUNOFIXATION(TREVON),PROTEIN ELEC(PE),FREon 03-07-2022 Albumin [Mass/Vol] 3.0 g/dL Normal 2.9-4.4 [facility] Comment on above: Performed By: #### I NFLUAB #### [facility] [address] [place] [address] Dr. Ashlie Hills Albumin/Globulin [Mass ratio] 0.8 {ratio} Normal 0.7-1.7 [facility] Comment on above: Performed By: #### I NFLUAB #### [facility] [address] [place] [address] Dr. Ashlie Hills Hwsar-3-Uxfpslkp 0.3 g/dL Normal 0.0-0.4 [facility] Comment on above: Performed By: #### I NFLUAB #### [facility] [address] [place] [address] Dr. Ashlie Hills Crdlp-5-Izdebbje 1.0 g/dL Normal 0.4-1.0 [facility] Comment on above: Performed By: #### I NFLUAB #### [facility] [address] [place] [address] Dr. Ashlie Hills Beta Globulin 1.8 g/dL Critically high 0.7-1.3 [facility] Comment on above: Performed By: #### I NFLUAB #### [facility] [address] [place] [address] Dr. Ashlie Hills Free [place] Lt Chains,S 45.2 mg/L Critically high 3.3-19.[address] [facility] Comment on above: Performed By: #### I NFLUAB #### [facility] [address] [place] [address] Dr. Ashlie Hills Free Lambda Lt Chains,S 40.3 mg/L Critically high 5.7-26.[address] [facility] Comment on above: Performed By: #### I NFLUAB #### [facility] [address] [place] [address] Dr. Ashlie Hills Gamma Globulin 0.8 g/dL Normal 0.4-1.[address] [facility] Comment on above: Performed By: #### I NFLUAB #### [facility] [address] [place] [address] Dr. Ashlie Hills Globulin (S) [Mass/Vol] 3.9 g/dL Normal 2.2-3.9 [facility] Comment on above: Performed By: #### I NFLUAB #### [facility] [address] [place] [address] Dr. Ashlie Hills Immunofixation Result, Serum Comment Normal [facility] Comment on above: Result Comment: No m onoclonality detected. Performed By: #### I NFLUAB #### [facility] [address] [address] [address] Ashlie Hills Immunoglobulin A, Qn, Serum 776 mg/dL Critically high 87-352 [facility] Comment on above: Performed By: #### I NFLUAB #### [facility] [address] [place] [address] Dr. Ashlie Hills Immunoglobulin G, Qn, Serum 955 mg/dL Normal 586-1602 [facility] Comment on above: Performed By: #### I NFLUAB #### [facility] [address] [place] [address] Dr. Ashlie Hills Immunoglobulin M, Qn, Serum 39 mg/dL Normal 26-217 [facility] Comment on above: Performed By: #### I NFLUAB #### [facility] [address] [place] [address] Dr. Ashlie Hills Euclid/Lambda Ratio, S 1.12 Normal 0.26-1.65 [facility] Comment on above: Performed By: #### I NFLUAB #### [facility] [address] [address] [address] Ashlie Hills M-Bright Not Observed Normal Not Observed [facility] Comment on above: Performed By: #### I NFLUAB #### [facility] [address] [place] [address] Dr. Ashlie Hills PDF . Normal [facility] Comment on above: Performed By: #### I NFLUAB #### [facility] [address] [place] [address] Dr. Ashlie Hills Please note: Comment Normal [facility] Comment on above: Result Comment: Prot ein electrophoresis scan will follow via computer, mail, or telecom manager delivery. Performed By: #### I NFLUAB #### [facility] [address] [address] [address] Ashlie Hills Protein [Mass/Vol] 6.9 g/dL Normal 6.0-8.5 [facility] Comment on above: Performed By: #### I NFLUAB #### [facility] [address] [address] [address] Ashlie Hills C-PEPTIDE, SERUMon C-Peptide, Serum 3.1 ng/mL Normal 1.1-4.4 [facility] Comment on above: Result Comment: C-Pe ptide reference interval is for fasting patients. Performed By: #### C PEPT #### [facility] [address] [place] [address] Dr. Ashlie Hills HEP B SURFACE ANTIGEN SCREEN on 03-04-2022 HBsAg Screen Negative Normal Negative [facility] Comment on above: Performed By: #### C BC #### [facility] [address] [address] [address] Ashlie Hills HEPATITIS C VIRUS AB W/ REFL EX QUANTon 03-04-2022 HCV AB <0.1 Normal 0.0-0.9 [facility] Comment on above: Performed By: #### I NFLUAB #### [facility] [address] [place] [address] Dr. Ashlie Hills Interpretation: Comment Normal [facility] Comment on above: Result Comment: Nega tive Not infected with HCV, unless recent infection is suspected or other evidence exists to indicate HCV infection. Performed By: #### I NFLUAB #### [facility] [address] [address] [address] Ashlie Hills MICROALBUMIN/ CREATININE RAT IOon 03-04-2022 Albumin, Urine 367.4 ug/mL Normal Not Estab. [facility] Comment on above: Performed By: #### C BC #### [facility] [address] [address] [address] Ashlie Hills Albumin/ Creatinine Ratio 239 mg/g creat Critically high 0-29 [facility] Comment on above: Result Comment: Norm al: 0 - 29 Moderately increased: 30 - 300 Severely increased: >300 Performed By: #### C BC #### [facility] [address] [address] [address] Ashlie Hills Creatinine, Urine 153.9 mg/dL Normal Not Estab. [facility] Comment on above: Performed By: #### C BC #### [facility] [address] [address] [address] Ashlie Hills VIT D 25-OH LABCORPon 2021 Vitamin D, 25-Hydroxy <4.0 Critically low 30.0-100.0 [facility] Comment on above: Result Comment: Graciela min D deficiency has been defined by the [place] [employer] and an Endocrine Society practice guideline as a level of serum 25-OH vitamin D less than 20 ng/mL (1,2). The Endocrine Society went on to further define vitamin D insufficiency as a level between 21 and 29 ng/mL (2). 1. IOM ([place] [employer]). 2010. Dietary reference intakes for calcium and D. [place]: The National Academies Press. 2. Lynda MF, Keely [place], Leandra LOPEZ, et al. Evaluation, treatment, and prevention of vitamin D deficiency: an Endocrine Society clinical practice guideline. JCEM. 2010; 96(7):1911-30. Performed By: #### C BC #### [facility] [address] [place] [address] Dr. Ashlie Hills GLYCOHEMOGLOBIN A1Con 2021 ADA RECOMMENDATION SEE BELOW Normal [facility] Comment on above: Result Comment: ADA RECOMMENDED LIMIT 4.0 - 6.0 ADA THERAPEUTIC TARGET < 7.0 ACTION SUGGESTED > 7.0 Performed By: #### C VDAGS #### [facility] [address] [address] [address] Ashlie Hills Glucose [Mass/Vol] 295 mg/dL Normal [facility] Comment on above: Performed By: #### C VDAGS #### [facility] [address] [address] [address] Ashlie Hills HbA1c (Bld) [Mass fraction] 11.9 % Critically high 4.5-6.[address] [facility] Comment on above: Performed By: #### C VDAGS #### [facility] [address] [place] [address] Dr. Ashlie Hills HEMOGRAM AND PLATELon 2021 Hematocrit (Bld) [Volume fraction] 56.3 % Critically high 36.0-48.0 [facility] Comment on above: Performed By: #### C VDAGS #### [facility] [address] [place] [address] Dr. Ashlie Hills Hemoglobin (Bld) [Mass/Vol] 18.0 g/dL Critically high 12.0-16.[address] [facility] Comment on above: Performed By: #### C VDAGS #### [facility] [address] [place] [address] Dr. Ashlie Hills MCH (RBC) [Entitic mass] 29.5 pg Normal 26.7-34.0 [facility] Comment on above: Performed By: #### C VDAGS #### [facility] [address] [place] [address] Dr. Ashlie Hills MCHC (RBC) [Mass/Vol] 32.0 g/dL Normal 29.9-35.[address] [facility] Comment on above: Performed By: #### C VDAGS #### [facility] [address] [place] [address] Dr. Ashlie Hills MCV (RBC) [Entitic vol] 92.1 fL Normal 81.0-99.[address] [facility] Comment on above: Performed By: #### C VDAGS #### [facility] [address] [place] [address] Dr. Ashlie Hills PLT 123 103/ul Critically low 150-[address] [facility] Comment on above: Performed By: #### C VDAGS #### [facility] [address] [place] [address] Dr. Ashlie Hills RBC 6.11 106/ul Critically high 4.20-5.40 [facility] Comment on above: Performed By: #### C VDAGS #### [facility] [address] [address] [address] Ashlie Hills WBC 16.4 103/ul Critically high 4.0-11.0 [facility] Comment on above: Performed By: #### C VDAGS #### [facility] [address] [address] [address] Ashlie Hills LIPID PROFILEon 03-03-2022 CHOL-HDL RATIO NORM SEE BELOW Normal [facility] Comment on above: Result Comment: 3.3 - 4.4 LOW RISK 4.4 - 7.1 AVERAGE RISK 7.1 - 11.0 MODERATE RISK >11.0 HIGH RISK Performed By: #### C VDAGS #### [facility] [address] [place] [address] Dr. Ashlie Hills Cholesterol [Mass/Vol] 159 mg/dL Normal <=200 [facility] Comment on above: Performed By: #### C VDAGS #### [facility] [address] [address] [address] Ashlie Hills Cholesterol in HDL [Mass/Vol] 40 mg/dL Normal 40-60 [facility] Comment on above: Performed By: #### C VDAGS #### [facility] [address] [place] [address] Dr. Ashlie Hills Cholesterol in LDL [Mass/Vol] 81.8 mg/dL Normal [facility] Comment on above: Performed By: #### C VDAGS #### [facility] [address] [address] [address] Ashlie Hills Cholesterol.total/Chol esterol in HDL [Mass ratio] 4.0 {ratio} Normal [facility] Comment on above: Performed By: #### C VDAGS #### [facility] [address] [place] [address] Dr. Ashlie Hills HDL NORMAL > or = 60 mg/dl - LOW CARDIOVASCULAR RISK <40 mg/dl - HIGH CARDIOVASCULAR RISK Normal [facility] Comment on above: Performed By: #### C VDAGS #### [facility] [address] [place] [address] Dr. Ashlie Hills LDL CALC NORMAL SEE BELOW Normal [facility] Comment on above: Result Comment: <100 mg/dl OPTIMAL 100 - 129 mg/dl NEAR OR ABOVE OPTIMAL 130 - 159 mg/dl BORDERLINE HIGH 160 - 189 mg/dl HIGH >190 mg/dl VERY HIGH Performed By: #### C VDAGS #### [facility] [address] [address] [address] Ashlie Hills Triglyceride [Mass/Vol] 186 mg/dL Critically high <=150 [facility] Comment on above: Performed By: #### C VDAGS #### [facility] [address] [address] [address] Ashlie Hills VLDL CALC 37.2 mg/dL Normal [facility] Comment on above: Performed By: #### C VDAGS #### [facility] [address] [address] [address] Ashlie Hills RENAL FUNCTION PANELon 03-03 Albumin [Mass/Vol] 3.1 g/dL Critically low 3.4-5.0 [facility] Comment on above: Performed By: #### C BC #### [facility] [address] [address] [address] Ashlie Hills Calcium [Mass/Vol] 9.2 mg/dL Normal 8.5-10.1 [facility] Comment on above: Performed By: #### C BC #### [facility] [address] [address] [address] Ashlie Hills Chloride [Moles/Vol] 102 mmol/L Normal 98-107 [facility] Comment on above: Performed By: #### C BC #### [facility] [address] [address] [address] Ashlie Hills CO2 [Moles/Vol] 31.9 mmol/L Normal 21.0-32.0 [facility] Comment on above: Performed By: #### C BC #### [facility] [address] [address] [address] Ashlie Hills Creatinine [Mass/Vol] 0.68 mg/dL Normal 0.55-1.02 [facility] Comment on above: Performed By: #### C BC #### [facility] [address] [address] [address] Ashlie Hills EGFR-AF TURKMEN >60 Normal >=60 [facility] Comment on above: Performed By: #### C BC #### [facility] [address] [address] [address] Ashlie Hills EGFR-NON AF TURKMEN >60 Normal >=60 [facility] Comment on above: Performed By: #### C BC #### [facility] [address] [address] [address] Ashlie Hills Glucose [Mass/Vol] 131 mg/dL Critically high 74-106 [facility] Comment on above: Performed By: #### C BC #### [facility] [address] [place] [address] Dr. Ashlie Hills Phosphate [Mass/Vol] 4.0 mg/dL Normal 2.6-4.7 [facility] Comment on above: Performed By: #### C BC #### [facility] [address] [place] [address] Dr. Ashlie Hills Potassium [Moles/Vol] 4.0 mmol/L Normal 3.5-5.[address] [facility] Comment on above: Performed By: #### C BC #### [facility] [address] [place] [address] Dr. Ashlie Hills Sodium [Moles/Vol] 141 mmol/L Normal 136-145 [facility] Comment on above: Performed By: #### C BC #### [facility] [address] [address] [address] Ashlie Hills Urea nitrogen [Mass/Vol] 17.0 mg/dL Normal 7.0-18.0 [facility] Comment on above: Performed By: #### C BC #### [facility] [address] [place] [address] Dr. Ashlie Hills UA RANDOM W/MICROSCOPICon BACTERIA NONE SEEN Normal NONE SEEN [facility] Comment on above: Performed By: #### I NFLUAB #### [facility] [address] [place] [address] Dr. Ashlie Hills Bilirubin Ql (U) Negative Normal NEGATIVE [facility] Comment on above: Performed By: #### I NFLUAB #### [facility] [address] [address] [address] Ashlie Hills CAST NONE SEEN Normal NONE SEEN [facility] Comment on above: Performed By: #### I NFLUAB #### [facility] [address] [place] [address] Dr. Ashlie Hills Clarity (U) CLEAR Normal CLEAR [facility] Comment on above: Performed By: #### I NFLUAB #### [facility] [address] [place] [address] Dr. Ashlie Hills Color (U) YELLOW Normal YELLOW [facility] Comment on above: Performed By: #### I NFLUAB #### [facility] [address] [place] [address] Dr. Ashlie Hills Crystals LM Nom (Urine sed) NONE SEEN Normal NONE SEEN [facility] Comment on above: Performed By: #### I NFLUAB #### [facility] [address] [place] [address] Dr. Ashlie Hills Epithelial cells LM Ql (Urine sed) FEW Abnormal NONE SEEN /RARE [facility] Comment on above: Performed By: #### I NFLUAB #### [facility] [address] [place] [address] Dr. Ashlie Hills Glucose Ql (U) Negative Normal NEGATIVE [facility] Comment on above: Performed By: #### I NFLUAB #### [facility] [address] [place] [address] Dr. Ashlie Hills Hemoglobin Ql (U) Negative Normal NEGATIVE [facility] Comment on above: Performed By: #### I NFLUAB #### [facility] [address] [place] [address] Dr. Ashlie Hills Ketones Ql (U) Negative Normal NEGATIVE [facility] Comment on above: Performed By: #### I NFLUAB #### [facility] [address] [place] [address] Dr. Ashlie Hills LEUKOCYTES Negative Normal NEGATIVE [facility] Comment on above: Performed By: #### I NFLUAB #### [facility] [address] [place] [address] Dr. Ashlie Hills MUCOUS NONE SEEN Normal NONE SEEN [facility] Comment on above: Performed By: #### I NFLUAB #### [facility] [address] [place] [address] Dr. Ashlie Hills Nitrite Ql (U) Negative Normal NEGATIVE [facility] Comment on above: Performed By: #### I NFLUAB #### [facility] [address] [place] [address] Dr. Ashlie Hills pH (U) 5.5 [pH] Normal 5-9 [facility] Comment on above: Performed By: #### I NFLUAB #### [facility] [address] [place] [address] Dr. Ashlie Hills RBC 0-2 Normal 0-2 [facility] Comment on above: Performed By: #### I NFLUAB #### [facility] [address] [place] [address] Dr. Ashlie Hills SPEC GRAVITY >=1.030 Abnormal 1.005-<=1.025 [facility] Comment on above: Performed By: #### I NFLUAB #### [facility] [address] [place] [address] Dr. Ashlie Hills UA PROTEIN 100 mg/dl Abnormal NEGATIVE/ TRACE [facility] Comment on above: Performed By: #### I NFLUAB #### [facility] [address] [place] [address] Dr. Ashlie Hills Urobilinogen Qn (U) 0.2 {Little'U}/dL Normal 0.2 - 1. [address] [facility] Comment on above: Performed By: #### I NFLUAB #### [facility] [address] [place] [address] Dr. Ashlie Hills WBC NONE SEEN Normal NONE SEEN [facility] Comment on above: Performed By: #### I NFLUAB #### [facility] [address] [place], [place] [id number] Dr. Ashlie Hills URIC ACID SERUMon 03-03-2022 Urate [Mass/Vol] 5.0 mg/dL Normal 2.6-6.0 [facility] Comment on above: Performed By: #### I NFLUAB #### [facility] [address] [place] [address] Dr. Ashlie Hills URINE T PROTEIN CREAT RATIOo n 03-03-2022 Protein (U) [Mass/Vol] 77.9 mg/dL Critically high <=12.[address] [facility] Comment on above: Performed By: #### C VDAGS #### [facility] [address] [place] [address] Dr. Ashlie Hills UR PROT CREAT RAT 0.44 Normal [facility] Comment on above: Performed By: #### C VDAGS #### [facility] [address] [place] [address] Dr. Ashlie Hills URINE CREAT 175.15 mg/dL Normal 20.00-300.00 [facility] Comment on above: Performed By: #### C VDAGS #### [facility] [address] [place] [address] Dr. Ashlie Hills CULTURE URINEon 12-25-2021 CULTURE URINE Culture Observations: GREATER THAN TWO ORGANISMS PRESENT, HEAVILY MIXED. PLEASE RESUBMIT CLEAN CATCH MID-STREAM URINE IF CLINICALLY INDICATED. Normal [facility] Comment on above: Performed By: #### I NFLUAB #### [facility] [address] [place] [address] Dr. Ashlie Hills CBC AUTO DIFFon 12-24-2021 BASO # 0.1 103/ul Normal 0.0-0.1 [facility] Comment on above: Performed By: #### C BC #### [facility] [address] [place] [address] Dr. Ashlie Hills Basophils/100 WBC (Bld) 0.5 % Normal 0.2-2.0 [facility] Comment on above: Performed By: #### C BC #### [facility] [address] [place] [address] Dr. Ashlie Hills EO # 0.4 103/ul Normal 0.0-0.7 [facility] Comment on above: Performed By: #### C BC #### [facility] [address] [place] [address] Dr. Ashlie Hills Eosinophils/100 WBC (Bld) 2.4 % Normal 0.9-7.0 [facility] Comment on above: Performed By: #### C BC #### [facility] [address] [place] [address] Dr. Ashlie Hills Erythrocyte distribution width (RBC) [Ratio] 14.1 % Normal 11.0-15.0 [facility] Comment on above: Performed By: #### C BC #### [facility] [address] [place] [address] Dr. Ashlie Hills Hematocrit (Bld) [Volume fraction] 55.9 % Critically high 36.0-48.0 [facility] Comment on above: Performed By: #### C BC #### [facility] [address] [place] [address] Dr. Ashlie Hills Hemoglobin (Bld) [Mass/Vol] 17.9 g/dL Critically high 12.0-16.0 [facility] Comment on above: Performed By: #### C BC #### [facility] [address] [place] [address] Dr. Ashlie Hills IG # 0.06 10e3/ul Critically high 0.00-0.03 [facility] Comment on above: Performed By: #### C BC #### [facility] [address] [place] [address] Dr. Ashlie Hills IG % 0.4 % Normal 0.0-0.5 [facility] Comment on above: Performed By: #### C BC #### [facility] [address] [place] [address] Dr. Ashlie Hills LYMPH # 5.8 103/ul Critically high 1.2-3.8 [facility] Comment on above: Performed By: #### C BC #### [facility] [address] [place] [address] Dr. Ashlie Hills Lymphocytes/100 WBC (Bld) 35.4 % Normal 20.5-60.0 [facility] Comment on above: Performed By: #### C BC #### [facility] [address] [place] [address] Dr. Ashlie Hills MANUAL DIFF REQ NO Normal [facility] Comment on above: Performed By: #### C BC #### [facility] [address] [place] [address] Dr. Ashlie Hills MCH (RBC) [Entitic mass] 29.4 pg Normal 26.7-34.0 [facility] Comment on above: Performed By: #### C BC #### [facility] [address] [place] [address] Dr. Ashlie Hills MCHC (RBC) [Mass/Vol] 32.0 g/dL Normal 29.9-35.2 [facility] Comment on above: Performed By: #### C BC #### [facility] [address] [place] [address] Dr. Ashlie Hills MCV (RBC) [Entitic vol] 91.8 fL Normal 81.0-99.0 [facility] Comment on above: Performed By: #### C BC #### [facility] [address] [place] [address] Dr. Ashlie Hills MONO # 0.8 103/ul Normal 0.3-0.8 [facility] Comment on above: Performed By: #### C BC #### [facility] [address] [place] [address] Dr. Ashlie Hills Monocytes/100 WBC (Bld) 4.8 % Normal 1.7-12.[address] [facility] Comment on above: Performed By: #### C BC #### [facility] [address] [place] [address] Dr. Ashlie Hills NEUT # 9.3 103/ul Critically high 1.4-6.5 [facility] Comment on above: Performed By: #### C BC #### [facility] [address] [place] [address] Dr. Ashlie Hills Neutrophils/100 WBC (Bld) 56.5 % Normal 43.0-75.0 [facility] Comment on above: Performed By: #### C BC #### [facility] [address] [address] [address] Ashlie Hills Platelet mean volume (Bld) [Entitic vol] 12.9 fL Normal 9.5-13.5 [facility] Comment on above: Performed By: #### C BC #### [facility] [facility] [address] [address] [address] Ashlie Hills PLT 127 103/ul Critically low 150-450 [facility] Comment on above: Performed By: #### C BC #### [facility] [address] [address] [address] Ashlie Hills RBC 6.09 106/ul Critically high 4.20-5.40 [facility] Comment on above: Performed By: #### C BC #### [facility] [address] [place] [address] Dr. Ashlie Hills WBC 16.4 103/ul Critically high 4.0-11.0 [facility] Comment on above: Performed By: #### C BC #### [facility] [address] [place] [address] ABD/PELVIS WO CONon [...] hip degenerative change. Normal [facility] ER URINE PROFILEon 2 Bilirubin Ql (U) Negative Normal NEGATIVE [facility] Comment on above: Performed By: #### E EVONNE LYMAN #### [facility] [address] [place], [place] [address] [address]. Ashlie Hills Clarity (U) CLEAR Normal CLEAR [facility] Comment on above: Performed By: #### E MADELINE LYMANRO #### [facility] [address] [place], [place] [address] Dr. Ashlie Hills Color (U) DK. ORANGE Abnormal YELLOW [facility] Comment on above: Performed By: #### E NURA, UMICRO #### [facility] [address] [place] [address] Dr. Ashlie HOBBS A micrscopic examination will be performed if indicated. Normal [facility] Comment on above: Performed By: #### E RUR, UMICRO #### [facility] [address] [place] [address] Dr. Ashlie Hills Glucose Ql (U) 250 mg/dl Abnormal NEGATIVE [facility] Comment on above: Performed By: #### E RUR, UMICRO #### [facility] [address] [place] [address] Dr. Ashlie Hills Hemoglobin Ql (U) Negative Normal NEGATIVE [facility] Comment on above: Performed By: #### E RUMahnaz, UMICRO #### [facility] [address] [place] [address] Dr. Ashlie Hills Ketones Ql (U) Negative Normal NEGATIVE [facility] Comment on above: Performed By: #### Tracey LYMAN UMICRO #### [facility] [address] [place] [address] Dr. Ashlie Hills LEUKOCYTES Negative Normal NEGATIVE [facility] Comment on above: Performed By: #### Tracey LYMAN, UMICRO #### [facility] [address] [place] [address] Dr. Ashlie Hills Nitrite Ql (U) Negative Normal NEGATIVE [facility] Comment on above: Performed By: #### Tracey RUMahnaz, UMICRO #### [facility] [address] [place] [address] Dr. Ashlie Hills pH (U) 5.0 [pH] Normal 5-[address] [facility] Comment on above: Performed By: #### Tracey LYMAN, UMICRO #### [facility] [address] [place] [address] Dr. Ashlie Hills Protein (U) [Mass/Vol] 100 mg/dL Abnormal NEGAT YURY/ TRACE [facility] Comment on above: Performed By: #### E NURA UMICRO #### [facility] [address] [place] [address] Dr. Ashlie Hills SPEC GRAVITY >=1.030 Abnormal 1.005-<=1.025 [facility] Comment on above: Performed By: #### E MADELINE LYMANRO #### [facility] [address] [place] [address] Dr. Ashlie Hills UR MICRO IND INDICATED Normal [facility] Comment on above: Performed By: #### MADELINE DIAZRO #### [facility] [address] [place] [address] Dr. Ashlie Hills Urobilinogen Qn (U) 1.0 {Little'U}/dL Normal 0.2 - 1. 0 [facility] Comment on above: Performed By: #### Tracey LYMAN HARRIETRO #### [facility] [address] [place] [address] Dr. Ashlie Hills PROF CHEM 8 (BAS METB)on Anion gap [Moles/Vol] 12.1 mmol/L Normal [facility] Comment on above: Performed By: #### I NFLUAB #### [facility] [address] [place] [address] Dr. Ashlie Hills Calcium [Mass/Vol] 9.0 mg/dL Normal 8.5-10.1 [facility] Comment on above: Performed By: #### I NFLUAB #### [facility] [address] [place] [address] Dr. Ashlie Hills Chloride [Moles/Vol] 101 mmol/L Normal 98-107 [facility] Comment on above: Performed By: #### I NFLUAB #### [facility] [address] [place] [address] Dr. Ashlie Hills CO2 [Moles/Vol] 29.1 mmol/L Normal 21.0-32.0 [facility] Comment on above: Performed By: #### I NFLUAB #### [facility] [address] [place] [address] Dr. Ashlie Hills Creatinine [Mass/Vol] 0.86 mg/dL Normal 0.55-1.02 [facility] Comment on above: Performed By: #### I NFLUAB #### [facility] [address] [address] [address] Ashlie Hills EGFR-AF TURKMEN >60 Normal >=60 [facility] Comment on above: Performed By: #### I NFLUAB #### [facility] [address] [address] [address] Ashlie Hills EGFR-NON AF TURKMEN >60 Normal >=60 [facility] Comment on above: Performed By: #### I NFLUAB #### [facility] [address] [address] [address] Ashlie Hills Glucose [Mass/Vol] 236 mg/dL Critically high 74-106 [facility] Comment on above: Performed By: #### I NFLUAB #### [facility] [address] [address] [address] Ashlie Hills Potassium [Moles/Vol] 4.2 mmol/L Normal 3.5-5.1 [facility] Comment on above: Performed By: #### I NFLUAB #### [facility] [address] [address] [address] Ashlie Hills Sodium [Moles/Vol] 138 mmol/L Normal 136-145 [facility] Comment on above: Performed By: #### I NFLUAB #### [facility] [address] [address] [address] Ashlie Hills Urea nitrogen [Mass/Vol] 11.0 mg/dL Normal 7.0-18.0 [facility] Comment on above: Performed By: #### I NFLUAB #### [facility] [address] [address] [address] Ashlie Hills Urea nitrogen/Creatinine [Mass ratio] 12.8 mg/mg Normal [facility] Comment on above: Performed By: #### I NFLUAB #### [facility] [address] [address] [address] Ashlie Hills URINE MICROSCOPIC ONLYon BACTERIA SMALL Abnormal NONE SEEN The [facility] Comment on above: Performed By: #### E JIMMYR, UMICRO #### [facility] [address] [place] [address] Dr. Ashlie Hills Bacteria identified Cx Nom (U) INDICATED Normal [facility] Comment on above: Performed By: #### E RUR, UMICRO #### [facility] [address] [place] [address] Dr. Ashlie Hills CAST NONE SEEN Normal NONE SEEN [facility] Comment on above: Performed By: #### E RUR, UMICRO #### [facility] [address] [place] [address] Dr. Ashlie Hills Crystals LM Nom (Urine sed) NONE SEEN Normal NONE SEEN [facility] Comment on above: Performed By: #### E RUR, UMICRO #### [facility] [address] [place] [address] Dr. Ashlie Hills Epithelial cells LM Ql (Urine sed) MODERATE Abnormal NONE SEEN /RARE [facility] Comment on above: Performed By: #### Tracey LYMAN, UMICRO #### [facility] [address] [place] [address] Dr. Ashlie Hills MUCOUS NONE SEEN Normal NONE SEEN [facility] Comment on above: Performed By: #### Tracey LYMAN, UMICRO #### [facility] [address] [place] [address] Dr. Ashlie Hills RBC 0-2 Normal 0-[address] [facility] Comment on above: Performed By: #### Tracey LYMAN UMICRO #### [facility] [address] [place] [address] Dr. Ashlie Hills WBC 0-2 Abnormal NONE SEEN [facility] Comment on above: Performed By: #### Tracey LYMAN UMICRO #### [facility] [address] [place] [address] Dr. Ashlie Hills YEAST PRESENT Abnormal NONE SEEN The [facility] Comment on above: Performed By: #### Tracey RUMahnaz, UMICRO #### [facility] [address] [place] [address] Dr. Ashlie Hills HIP RIGHT 1 OR 2 VWS WITH PE LVISon 07-20-2020 HIP RIGHT 1 OR [address] [facility] Department of Radiology [address] [place] [address] Patient Name: MITZI MACIAS : [...] MRI. Electronically signed: Pipo Acevedo. Transcribed by: [email or web address], User Resident: Electronically Signed by: PIPO ACEVEDO @ 07/20/2020 03:[address] [facility] Comment on above: Order Comment: evalu ate Vital Signs Date Time Vital Sign Value Performing Clinician Facility 01-29-2025 09:48-0400 Body height 170.2 cm Rain Souza MD Work Phone: [facility] 01-29-2025 09:48-0400 Body mass index (BMI) [Ratio] 56.38 kg/m2 Rain Souza MD Work Phone: [facility] 01-29-2025 09:48-0400 Body weight 163.29 kg Rain Souza MD Work Phone: [facility] 01-29-2025 09:48-0400 Diastolic blood pressure 70 mm[Hg] Rain Souza MD Work Phone: [facility] 01-29-2025 09:48-0400 Heart rate 72 /min Rain Souza MD Work Phone: [facility] 01-29-2025 09:48-0400 Respiratory rate 16 /min Rain Souza MD Work Phone: [facility] 01-29-2025 09:48-0400 SaO2% (BldA) [Mass fraction] 84 % Rain Souza MD Work Phone: [facility] 01-29-2025 09:48-0400 Systolic blood pressure 130 mm[Hg] Rain Souza MD Work Phone: [facility] 01-26-2025 18:11-0400 Body mass index (BMI) [Ratio] 58.64 kg/m2 Mckayla Blas [employer] Work Phone: [facility] 01-26-2025 18:11-0400 Body temperature 98.49 [degF] Mckayla Blas [employer] Work Phone: [facility] 01-26-2025 18:11-0400 Body weight 169.83 kg Mckayla Blas [employer] Work Phone: [facility] 01-26-2025 18:11-0400 Diastolic blood pressure 82 mm[Hg] Mckayla Blas [employer]GER Work Phone: [facility] 01-26-2025 18:11-0400 Heart rate 81 /min Mckayla Aichholz [employer] Work Phone: [facility] 01-26-2025 18:11-0400 Respiratory rate 20 /min Mckayla Aichholz [employer] Work Phone: [facility] 01-26-2025 18:11-0400 SaO2% (BldA) [Mass fraction] 90 % Mckayla Aichholz [employer] Work Phone: [facility] 01-26-2025 18:11-0400 Systolic blood pressure 126 mm[Hg] Mckayla Aichholz [employer] Work Phone: [facility] 12-09-2024 10:19-0400 Body temperature 98.01 [degF] Mckayla Aichholz [employer] Work Phone: [facility] 12-09-2024 10:19-0400 Diastolic blood pressure 76 mm[Hg] Mckayla Aichholz [employer]GER Work Phone: [facility] 12-09-2024 10:19-0400 Heart rate 71 /min Mckayla Aichholz [employer] Work Phone: [facility] 12-09-2024 10:19-0400 Respiratory rate 20 /min Mckayla Aichholz [employer] Work Phone: [facility] 12-09-2024 10:19-0400 SaO2% (BldA) [Mass fraction] 88 % Mckayla Aichholz [employer]GER Work Phone: [facility] 12-09-2024 10:19-0400 Systolic blood pressure 150 mm[Hg] Mckayla Aichholz [employer]GER Work Phone: [facility] 10-27-2024 14:11-0400 Body height 170.2 cm Mckayla Aichholz [employer]GER Work Phone: [facility] 10-27-2024 14:11-0400 Body mass index (BMI) [Ratio] 56.51 kg/m2 Mckayla Aichholz [employer]GER Work Phone: [facility] 10-27-2024 14:11-0400 Body temperature 98.71 [degF] Mckayla Blas [employer]GER Work Phone: [facility] 10-27-2024 14:11-0400 Body weight 163.66 kg Mckayla Blas [employer]GER Work Phone: [facility] 10-27-2024 14:11-0400 Diastolic blood pressure 74 mm[Hg] Mckayla Blas [employer]GER Work Phone: [facility] 10-27-2024 14:11-0400 Heart rate 75 /min Mckayla Blas [employer]GER Work Phone: [facility] 10-27-2024 14:11-0400 Respiratory rate 18 /min Mckayla Blas [employer]GER Work Phone: [facility] 10-27-2024 14:11-0400 SaO2% (BldA) [Mass fraction] 90 % Mckayla Blas [employer]GER Work Phone: [facility] 10-27-2024 14:11-0400 Systolic blood pressure 132 mm[Hg] Mckayla Blas [employer]GER Work Phone: [facility] 10-08-2024 11:21-0400 Body height 170.2 cm Rain Souza MD Work Phone: [facility] 10-08-2024 11:21-0400 Body mass index (BMI) [Ratio] 55.91 kg/m2 Rain Souza MD Work Phone: [facility] 10-08-2024 11:21-0400 Body weight 161.93 kg Rain Souza MD Work Phone: [facility] 10-08-2024 11:21-0400 Diastolic blood pressure 70 mm[Hg] Rain Souza MD Work Phone: [facility] 10-08-2024 11:21-0400 Heart rate 70 /min Rain Souza MD Work Phone: [facility] 10-08-2024 11:21-0400 Respiratory rate 16 /min Rain Souza MD Work Phone: [facility] 10-08-2024 11:21-0400 SaO2% (BldA) [Mass fraction] 91 % Rain Souza MD Work Phone: [facility] 10-08-2024 11:21-0400 Systolic blood pressure 130 mm[Hg] Rain Souza MD Work Phone: [facility] 08-27-2024 17:44-0500 Body mass index (BMI) [Ratio] 57.31 kg/m2 Mckayla Aichholz [employer] Work Phone: [facility] 08-27-2024 17:44-0500 Body temperature 98.01 [degF] Mckayla Aichholz [employer]GER Work Phone: [facility] 08-27-2024 17:44-0500 Body weight 165.97 kg Mckayla Aichholz [employer]GER Work Phone: [facility] 08-27-2024 17:44-0500 Diastolic blood pressure 76 mm[Hg] Mckayla Aichholz [employer] MANAGER Work Phone: [facility] 08-27-2024 17:44-0500 Heart rate 83 /min Mckayla Aichholz [employer]GER Work Phone: [facility] 08-27-2024 17:44-0500 Respiratory rate 18 /min Mckayla Aichholz [employer]GER Work Phone: [facility] 08-27-2024 17:44-0500 SaO2% (BldA) [Mass fraction] 91 % Mckayla Aichholz [employer]GER Work Phone: [facility] 08-27-2024 17:44-0500 Systolic blood pressure 134 mm[Hg] Mckayla Aichholz [employer]GER Work Phone: [facility] 06-11-2024 10:00-0500 Blood Pressure Location Elbert ARAUZ [facility] 06-11-2024 10:00-0500 Diastolic blood pressure 68 mm[Hg] Elbert ARAUZ [facility] 06-11-2024 10:00-0500 Heart rate 76 /min Elbert ARAUZ [facility] 06-11-2024 10:00-0500 Systolic blood pressure 132 mm[Hg] Elbert ARAUZ [facility] 05-27-2024 10:20-0500 Body height 170.2 cm Rain Souza MD Work Phone: [facility] 05-27-2024 10:20-0500 Body mass index (BMI) [Ratio] 56.7 kg/m2 Rain Souza MD Work Phone: [facility] 05-27-2024 10:20-0500 Body weight 164.2 kg Rain Souza MD Work Phone: [facility] 05-27-2024 10:20-0500 Diastolic blood pressure 66 mm[Hg] Rain Souza MD Work Phone: [facility] 05-27-2024 10:20-0500 Heart rate 72 /min Rain Souza MD Work Phone: [facility] 05-27-2024 10:20-0500 Respiratory rate 16 /min Rain Souza MD Work Phone: [facility] 05-27-2024 10:20-0500 Systolic blood pressure 128 mm[Hg] Rain Souza MD Work Phone: [facility] 04-14-2024 10:27-0400 Body height 165.1 cm Mckayla Blas NP Work Phone: [facility] 04-14-2024 10:27-0400 Body mass index (BMI) [Ratio] 61.01 kg/m2 Mckayla Blas NP Work Phone: [facility] 04-14-2024 10:27-0400 Body temperature 98.49 [degF] Mckayla Blas [employer]GER Work Phone: [facility] 04-14-2024 10:27-0400 Body weight 166.29 kg Mckayla Blas [employer] MANAGER Work Phone: [facility] 04-14-2024 10:27-0400 Diastolic blood pressure 80 mm[Hg] Mckayla Blas [employer] MANAGER Work Phone: [facility] 04-14-2024 10:27-0400 Heart rate 77 /min Mckaylajuvenal Rosenbergz [employer] MANAGER Work Phone: [facility] 04-14-2024 10:27-0400 Respiratory rate 19 /min Mckayla Blas [employer] MANAGER Work Phone: [facility] 04-14-2024 10:27-0400 SaO2% (BldA) [Mass fraction] 92 % Mckayla Blas [employer] MANAGER Work Phone: [facility] 04-14-2024 10:27-0400 Systolic blood pressure 116 mm[Hg] Mckayla Blas [employer] MANAGER Work Phone: [facility] 03-08-2022 15:00-0400 Body height 170.18 cm Stephanie Tico Other [employer] Other 03-08-2022 15:00-0400 Body temperature 97.6 [degF] Stephanie Tico Other [employer] Other 03-08-2022 15:00-0400 Diastolic blood pressure 72 mm[Hg] Stephanie Tico Other [employer] Other 03-08-2022 15:00-0400 Respiratory rate 20 /min Stephanie Tico Other [employer] Other 03-08-2022 15:00-0400 SaO2% (BldA) [Mass fraction] 91 % Stephanie Tico Other [employer] Other 03-08-2022 15:00-0400 Systolic blood pressure 131 mm[Hg] Stephanie Tico Other [employer] Other 02-20-2022 09:20-0400 Body height 170.18 cm Stephanie Tico Other [employer] Other 02-20-2022 09:20-0400 Body temperature 96.5 [degF] Stephanie Tico Other [employer] Other 02-20-2022 09:20-0400 Diastolic blood pressure 69 mm[Hg] Stephanie Tico Other [employer] Other 02-20-2022 09:20-0400 Respiratory rate 20 /min Stephanie Tico Other [employer] Other 02-20-2022 09:20-0400 SaO2% (BldA) [Mass fraction] 91 % Stephanie Tico Other [employer] Other 02-20-2022 09:20-0400 Systolic blood pressure 129 mm[Hg] Stephanie Tico Other [employer] Other 02-06-2022 10:24-0400 Blood Pressure Location Elbert ARAUZ [facility] 02-06-2022 10:24-0400 Diastolic blood pressure 76 mm[Hg] Elbert ARAUZ [facility] 02-06-2022 10:24-0400 Heart rate 70 /min Elbert ARAUZ [facility] 02-06-2022 10:24-0400 Respiratory rate 16 /min Elbert ARAUZ [facility] 02-06-2022 10:24-0400 Systolic blood pressure 134 mm[Hg] Elbert ARAUZ [facility] Encounters Encounter Date Encounter Type Care Provider Facility Start: 03-12-2025 ambulatory Flynn BAEZM F acility:[facility] Start: 03-11-2025 End: 03-11-2025 ambulatory Flynn BAEZM Facility:[facility] Start: 03-09-2025 End: 03-09-2025 Refill Mckayla Blas [...] 25 minutes Rain Souza MD Work Phone: [facility] Comment on above: Encounter for dietar y consultation (Primary Dx); Type 2 diabetes mellitus with hyperglycemia, with long-term current use of insulin (HCC); Vitamin D deficiency; Primary hypertension ; Insulin long-term use (HCC); Hyperlipemia, mixed ; Microalbuminuria; Class 3 severe obesity due to excess calories with serious comorbidity and body mass index (BMI) of 50.0 to 59.9 in adult ([facility]) Start: 01-26-2025 End: 01-26-2025 ambulatory MCKAYLA BLAS Not Available Start: 01-26-2025 End: 01-26-2025 Patient encounter procedure Mckayla Blas [employer]GER Work Phone: [facility] Comment on above: Encounter for [...] type (HCC); Moderate persistent asthma without complication ([facility]); Insomnia; Non-seasonal allergic rhinitis, unspecified trigger; Type 2 diabetes mellitus with unspecified complications (HCC); Anxiety and depression ; Antibiotic-induced yeast infection; Chronic obstructive pulmonary disease, unspecified (HCC); Hyperlipidemia, unspecified ; Vaginal yeast infection; Morbid (severe) obesity due to excess calories ([facility]) Start: 01-06-2025 End: 01-06-2025 ambulatory [facility] Start: 12-18-2024 End: 12-19-2024 Refill Mckayla Blas [employer] MANAGER Work Phone: [facility] Comment on above: Hyperlipidemia, unsp ecified ; Tobacco user; Encounter for smoking cessation counseling Start: 12-09-2024 End: 12-09-2024 Bamboo flowsheet Mckayla Blas [employer] MANAGER Work Phone: [facility] Start: 12-09-2024 End: 12-09-2024 Bamboo flowsheet Mckayla Blas [employer] SAL[employer] MANAGER Work Phone: [facility] Start: 12-09-2024 End: 12-09-2024 ambulatory MCKAYLA AICHHOLZ Not Available Start: 12-09-2024 End: 12-09-2024 Office outpatient visit 25 minutes Mckayla Blas [employer] MANAGER Work Phone: [facility] Comment on above: Cellulitis of [...] Office outpatient visit 25 minutes Mckayla Blas [employer] MANAGER Work Phone: [facility] Comment on above: Primary hypertension [...] 10-21-2024 Refill Mckayla Blas NP Work Phone: [facility] Comment on above: Chronic obstructive pulmonary disease, unspecified Start: 10-08-2024 End: 10-08-2024 Clinisync Result Encounter Mckayla Patriciadallin SCHAEFER Work Phone: [facility] External Department Unsolicited Start: 10-08-2024 End: 10-08-2024 Clinisync Result Encounter Mckayla Patriciadallin SCHAEFER Work Phone: [facility] External Department Unsolicited Start: 10-08-2024 End: 10-08-2024 [...] minutes Mckayla Blas NP Work Phone: [facility] Comment on above: Anxiety and [...] complication, with long-term current use of insulin ([facility]); Tobacco user; Mixed hyperlipidemia ([facility]); Gout, unspecified cause, unspecified chronicity, unspecified site; Vitamin deficiency; Gastro-esophageal reflux disease without esophagitis; Edema, unspecified; Edema; Hyperlipidemia, unspecified (CMS/HCC); Encounter for smoking cessation counseling; Venous ulcer of right leg ([facility]); Antibiotic-induced yeast infection Start: 08-27-2024 End: 08-27-2024 ambulatory MCKAYLA BLAS Not Available Start: 08-27-2024 End: 08-27-2024 Clinisync Result Encounter Generic External Data Provider [facility] External Department Unsolicited Start: 08-27-2024 End: 08-27-2024 Clinisync Result Encounter Generic External Data Provider [facility] External Department Unsolicited Start: 08-08-2024 End: 08-08-2024 ambulatory [facility] Start: 07-17-2024 End: 07-17-2024 Refill Mckayla Blas [employer] MANAGER Work Phone: [facility] Start: 07-14-2024 End: 07-14-2024 Office outpatient visit 25 minutes Mckayla Blas NP Work Phone: [facility] Comment on above: Primary hypertension ([facility]) (Primary Dx); Diabetic polyneuropathy associated with type 2 diabetes mellitus ([facility]); Pulmonary emphysema, unspecified emphysema type ([facility]); Critical limb ischemia of right lower extremity ([facility]); PAD (peripheral artery disease) ([facility]); Gastroesophageal reflux disease, unspecified whether esophagitis present; Bilateral lower extremity edema; Venous ulcer of right leg ([facility]/HCC); Type 2 diabetes mellitus with complication, with long-term current use of insulin ([facility]); Tobacco user; Encounter for smoking cessation counseling; Kidney stone; Adrenal mass 1 cm to 4 cm in diameter ([facility]/HCC); Radiculopathy, lumbar region; Non-seasonal allergic rhinitis, unspecified trigger; Type 2 diabetes mellitus with unspecified complications ([facility]) Start: 07-14-2024 End: 07-14-2024 ambulatory MCKAYLA BLAS Not Available Start: 07-05-2024 End: 07-07-2024 Refill Mckayla Harshaddallin [employer]AIL TI[employer] SALES MANAGER Work Phone: [facility] Comment on above: Bilateral lower extr emity edema Start: 06-11-2024 ambulatory Elbert ARAUZ Rock ty:SHEA [place] Start: 06-11-2024 End: 06-11-2024 Patient encounter procedure Elbert ARAUZ [facility] [place] Start: 05-27-2024 End: 05-27-2024 Bamboo flowsheet Rain Souza MD Work Phone: [facility] Start: 05-27-2024 End: 05-27-2024 Bamboo flowsheet Rain Souza MD Work Phone: [facility] Start: 05-27-2024 End: 05-27-2024 ambulatory RAIN SOUZA Not Available Start: 05-27-2024 End: 05-27-2024 Office outpatient visit 25 minutes Rain Souza MD Work Phone: [facility] Comment on above: Type 2 diabetes asiya itus with hyperglycemia, with long-term current use of insulin ([facility]) (Primary Dx); Encounter for dietary consultation; Vitamin D deficiency; Primary hypertension ([facility]); Insulin long-term use ([facility]); Hyperlipemia, mixed ([facility]); Microalbuminuria; Class 3 severe obesity due [...] 04-14-2024 End: 04-14-2024 Bamboo flowsheet Mckayla Aichholz RETAIL TI[employer] SALES MANAGER Work Phone: [facility] Start: 04-14-2024 End: 04-14-2024 Bamboo flowsheet Mckayla Aichholz RETAIL TI[employer] SALES MANAGER Work Phone: [facility] Start: 04-14-2024 End: 04-14-2024 Office outpatient visit 25 minutes Mckayla Chetz [employer]AIL TI[employer] SALES MANAGER Work Phone: [facility] Comment on above: Primary [...] Start: 04-05-2024 End: 04-06-2024 Refill Mckayla Aichholz [employer]AIL TI[employer] SALES MANAGER Work Phone: [facility] Comment on above: Hyperlipidemia, unsp ecified (CMS/HCC); Bilateral lower extremity edema Vitamin D deficiency , unspecified Start: 01-17-2024 Patient encounter procedure Rain Souza MD Work Phone: [facility] Start: 08-17-2023 Refill Mckayla Aichholz [employer]AIL TI[employer] SALES MANAGER Work Phone: [facility] Comment on above: Vaginal yeast infect ion (Primary Dx) Start: 08-14-2023 Refill Mckayla Aichholz RETAIL TI[employer] SALES MANAGER Work Phone: [facility] Comment on above: Type 2 diabetes asiya itus with unspecified complications (CMS/HCC); Edema, unspecified; Edema Start: 12-05-2022 ambulatory NARENDRANATH LAKSHMIPATHY . Facility:[facility] Start: 12-05-2022 End: 12-06-2022 Evaluation and management of inpatient UMBERTO CANTU . Facility:[facility] Start: 11-23-2022 End: 11-23-2022 ambulatory SAYDA PATRICIARAVIJuanis Facility:[facility] Start: 11-22-2022 End: 11-23-2022 ambulatory SAYDA ASENCIO LARACayetanoRAVIJuains Facility:[facility] Start: 11-17-2022 End: 11-18-2022 ambulatory SUBHASH GASPAR . Facility:[facility] Start: 11-15-2022 End: 11-15-2022 Patient encounter procedure SARAH VEGA [facility] Start: 10-05-2022 End: 10-05-2022 ambulatory MARIANO [...] 03-08-2022 End: 03-08-2022 ambulatory Stephanie Tico Other [employer] Other Start: 03-08-2022 Office outpatient vi sit 15 minutes Stephanie Tico [facility] Start: 03-03-2022 End: 03-04-2022 ambulatory SAYDA BLAS Facility:[facility] Start: 02-20-2022 End: 02-20-2022 ambulatory Stephanie Tico Other [employer] Other Start: 02-20-2022 Office outpatient ne w 45 minutes Stephanie Tico [facility] Start: 02-06-2022 End: 02-06-2022 Patient encounter procedure Elbert ARAUZ [facility] Start: 01-19-2022 End: 01-20-2022 ambulatory GILSONA RODRIGUEZIS . Facility: Start: 12-24-2021 End: 12-24-2021 ambulatory OLE RAMIREZ Facility: Start: 08-26-2020 End: 09-10-2020 Patient encounter procedure MARY GABINOLOS Facility:[facility] Start: 10-30-2019 End: 10-30-2019 Emergency department patient visit [facility] Start: 10-30-2019 End: 10-30-2019 Emergency department patient visit [facility] Start: 11-02-2016 Preoperative state Stephanie Tico Other [employer] Other Procedures Date Procedure Procedure Detail Performing [...] Rain Souza MD Work Phone: Start: 10-08-2024 [facility] UA (CLEAN/CATCH) MICROSCOPIC IF INDICATE Mckayla Blas NP Work Phone: Start: 08-27-2024 ALL CBC WITH AUTO DIFF Generic External Data Provider Start: 05-27-2024 Gluc bld gluc mntr d ev cleared fda spec home use Rain Souza MD Work Phone: Start: 05-12-2024 [facility] CREATININE Generic External Data Provider Start: 12-14-2023 Mammography Rain urena MD Work Phone: Start: 11-22-2022 Mammography Mckayla clifford [employer]AIL TI[employer] SALES MANAGER Work Phone: Start: 10-08-2015 Microscopic observat ion [Identifier] in Cervix by Cyto stain Mckayla Blas [employer] SALES MANAGER Work Phone: H/O: hysterectomy Elbert TIKA LARA Laparoscopic cholecystectomy Elbert ARAUZ Operative procedure on foot Elbert ARAUZ Plan of Treatment Date Care Activity Detail Author Start: 02-01-2026 End: 02-01-2026 Patient encounter procedure [facility] Start: 01-26-2026 Medicare Annual Wellness (AWV) [...] procedure 01/28/2025 10:50 AM EDT Office Visit [facility] [address] [place] [address] Rain Souza MD [address] [place] [address] [facility] Start: 01-26-2025 End: 01-26-2025 Patient encounter procedure 01/26/2025 6:00 PM EDT [facility] [address] [place] [phone] Mckayla Blas NP [address] [place] [phone] [facility] Start: 01-16-2025 Medicare Annual Wellness (AWV) Medicare Annual Wellness (AWV) [facility] Start: 01-07-2025 Hemoglobin A1c measurement Diabetes: Hemoglobin A1C [facility] Start: 12-15-2024 End: 12-27-2025 MG Breast - bilateral Screening Bilateral screening mammogram Imaging Routine Encounter for screening mammogram for malignant neoplasm of breast Expected: 12/15/2024 (Approximate), Expires: 12/27/2025 [facility] Work Phone: Comment on above: Expected: 12/15/2024 (Approximate), Expires: 12/27/2025 Start: 12-13-2024 Screening for malignant neoplasm of breast Mammogram [facility] Start: 11-11-2024 Urine screening for protein Diabetes: Urine Protein Screening [facility] Start: 10-27-2024 End: 10-27-2024 Patient encounter procedure 10/27/2024 2:00 PM EDT Office Visit [facility] [address] [place] [phone] Mckayla Blas, SILVANO [address] [place] [phone] [facility] Start: 10-08-2024 End: 10-08-2024 Patient encounter procedure 10/08/2024 11:20 AM EDT Office Visit [facility] [address] [place] [address] Rain Souza MD [address] [place] [address] [facility] Start: 08-27-2024 End: 08-27-2024 Patient encounter procedure 08/27/2024 5:30 PM EST Office Visit [facility] [address] [place] [address] Mckayla Blas, RETAIL TIRE SALES MANAGER [address] [place] [address] [facility] Start: 08-27-2024 End: 08-27-2025 25-hydroxyvitamin D3 [Mass/volume] in Serum or Plasma Vitamin D 25 hydroxy Lab Routine Vitamin deficiency Expected: 08/27/2024 (Approximate), Expires: 08/27/2025 [facility] Comment on above: Expected: 08/27/2024 (Approximate), Expires: 08/27/2025 Start: 08-27-2024 Hemoglobin A1c measurement Diabetes: Hemoglobin A1C [facility] Start: 08-27-2024 End: 08-27-2025 Hepatic function 2000 panel - Serum or Plasma Hepatic function panel Lab Routine Hyperlipidemia, unspecified (CMS/HCC) Expected: 08/27/2024 (Approximate), Expires: 08/27/2025 [facility] Comment on above: Expected: 08/27/2024 (Approximate), Expires: 08/27/2025 Start: 08-27-2024 End: 08-27-2025 Lipid 1996 panel - Serum or Plasma Lipid panel Lab Routine Mixed hyperlipidemia (CMS/HCC) Expected: 08/27/2024 (Approximate), Expires: 08/27/2025 [facility] Work Phone: Comment on above: Expected: 08/27/2024 (Approximate), Expires: 08/27/2025 Start: 08-27-2024 End: 08-27-2025 Microalbumin/Creatini ne panel in random Urine Microalbumin / creatinine, urine ratio Lab Routine Primary hypertension ([facility]CC) Type 2 diabetes mellitus with complication, with long-term current use of insulin ([facility]) Expected: 08/27/2024 (Approximate), Expires: 08/27/2025 [facility] Comment on above: Expected: 08/27/2024 (Approximate), Expires: 08/27/2025 Start: 08-27-2024 End: 08-27-2025 Urate [Mass/volume] in Serum or Plasma Uric acid Lab Routine Gout, unspecified cause, unspecified chronicity, unspecified site Expected: 08/27/2024 (Approximate), Expires: 08/27/2025 [facility] Comment on above: Expected: 08/27/2024 (Approximate), Expires: 08/27/2025 Start: 08-27-2024 End: 08-27-2025 Urinalysis complete panel - Urine Urinalysis with reflex microscopic (clean catch) Lab Routine Primary hypertension ([facility]) Type 2 diabetes mellitus with complication, with long-term current use of insulin ([facility]) Tobacco user Gout, unspecified cause, unspecified chronicity, unspecified site Expected: 08/27/2024 (Approximate), Expires: 08/27/2025 [facility] Comment on above: Expected: 08/27/2024 (Approximate), Expires: 08/27/2025 Start: 08-26-2024 End: 08-26-2024 Patient encounter procedure 08/26/2024 10:30 AM EST Office Visit [facility] [address] [place] [address] Rain Souza MD [address] [place] [address] [facility] Start: 07-14-2024 End: 07-14-2024 Patient encounter procedure 07/14/2024 6:30 PM EST Office Visit [facility] [address] [place] [address] Mckayla Blas, SILVANO [address] [place] [address] [facility] Start: 07-14-2024 End: 07-14-2024 Patient encounter procedure 07/14/2024 10:10 AM EST Office Visit [facility] [address] [place] [address] Rain Souza MD [address] [place] [address] [facility] Start: 06-06-2024 Influenza vaccination Influenza Vacc ine (#1) [facility] Comment on above: Postponed from 03/09 (Patient Refused) Start: 05-27-2024 End: 05-27-2024 Patient encounter procedure 05/27/2024 9:50 AM EST Office Visit [facility] [address] [place] [address] Rain Souza MD [address] [place] [address] [facility] Start: 05-17-2024 Hemoglobin A1c measurement Diabetes: Hemoglobin A1C [facility] Start: 05-15-2024 End: 05-15-2024 Chart abstracting 05/15/2024 Abstract [facility] [address] [place] [address] Rain Souza MD [address] [place] [address] [facility] Start: 05-15-2024 End: 05-15-2024 Patient encounter procedure 05/15/2024 11:20 AM EST Office Visit [facility] [address] [place] [address] Rain Souza MD [address] [place] [address] [facility] Start: 04-17-2024 End: 04-17-2024 Patient encounter procedure 04/17/2024 3:40 PM EDT Office Visit [facility] [address] [place] [address] Mckayla Blas, RETAIL TIRE SALES MANAGER [address] [place] [phone] [facility] Start: 04-14-2024 End: 04-14-2024 Patient encounter procedure 04/14/2024 11:00 AM EDT Office Visit [facility] [address] [place] [phone] Mckayla Blas, SILVANO [address] [place] [phone] Arrived [facility] Comment on above: Arrived Start: 03-09-2024 Influenza vaccination Influenza Vacc ine (#1) [facility] Start: 02-19-2024 Hemoglobin A1c measurement Diabetes: Hemoglobin A1C [facility] Start: 11-24-2023 Urine screening for protein Diabetes: Urine Protein Screening [facility] Start: 11-23-2023 Screening for malignant neoplasm of breast Mammogram [facility] Start: 10-15-2023 End: 10-15-2023 Patient encounter procedure 10/15/2023 4:30 PM EDT Office Visit [facility] [address] [place] [phone] Mckayla Blas, RETAIL TIRE SALES MANAGER [address] [place] [address] [facility] Start: 08-09-2023 Hemoglobin A1c measurement Diabetes: Hemoglobin A1C [facility] Start: 05-27-2021 Glaucoma screening Diabetes: R etinopathy Screening [facility] Start: 03-09-2020 Influenza vaccination Flu vacc ine (Season Ended) [place] Start: 10-07-2018 Screening for malignant neoplasm of cervix [facility] Start: 2010 Lipid panel Lipid screen [place], [place] Start: 2000 Screening for malignant neoplasm of cervix HPV/Cotest [facility] Start: 1991 Screening for malignant neoplasm of cervix Cervical cancer screen [place] Start: 1989 DTaP/Tdap/Td vaccine (1 - Tdap) DTaP/Tdap/Td vaccine (1 - Tdap) [place] Start: 1985 HIV screening HIV screen [place], [place] Start: 1970 Medicare Annual Wellness (AWV) Medicare Annual Wellness (AWV) [facility] Start: 1970 Screening for malignant neoplasm of colon [facility] BLOOD CULTURE 1 BLOOD CULTURE 1 Lab Routine 12/04/2024 4:44 PM EDT [facility] BLOOD CULTURE 2 BLOOD CULTURE 2 Lab Routine 12/04/2024 5:28 PM EDT [facility] Immunizations Immunization Date Immunization Notes Care Provider [facility]ie [facility] 05-18-2023 influenza, injectabl e, quadrivalent, contains preservative Mckayla Blas NP Work Phone: [facility] 05-18-2023 influenza virus vacc ine, unspecified formulation Rain Souza MD Work Phone: [facility] 07-19-2021 SARS-CoV-2 (COVID-19 ) mRNA BNT-162b2 bjornx SARAH VEGA [facility] 10-28-2020 SARS-CoV-2 (COVID-19 ) mRNA BNT-162b2 bjornx SARAH VEGA [facility] 10-08-2020 SARS-CoV-2 (COVID-19 ) mRNA BNT-162b2 vax SARAH VEGA [facility] 04-16-2017 influenza virus vacc ine, H5N1, A/ (national stockpile) Mckayla Blas RETAIL TI[employer] SALES MANAGER Work Phone: [facility] 04-16-2017 influenza virus vacc ine, unspecified formulation Rain Souza MD Work Phone: [facility] 04-16-2017 influenza, unspecifi ed formulation Elbert ARAUZ [facility] 04-16-2017 pneumococcal polysaccharide vaccine, 23 valent Rain Souza MD Work Phone: [facility] 05-10-2016 influenza virus vacc ine, H5N1, A/ (national stockpile) Mckayla Blas RETAIL TIRE SALES MANAGER Work Phone: [facility] 05-10-2016 influenza virus vacc ine, unspecified formulation Rain Souza MD Work Phone: [facility] 05-10-2016 influenza, unspecifi ed formulation Elbert ARAUZ [facility] 05-02-2013 influenza virus vacc ine, whole virus Rain Souza MD Work Phone: [facility] 05-02-2013 influenza, injectabl e, quadrivalent, contains preservative Mckayla Blas RETAIL TI[employer] SALES MANAGER Work Phone: [facility] 05-02-2013 influenza, whole Elbert ARAMBULA [facility] 01-29-1998 measles, mumps and rubella virus vaccine Rain Souza MD Work Phone: [facility] Payers Date Payer Category Payer Unknown [id number] 2023 Medicare (Managed Care) [id number]. [id number] 2023 Private Health Insurance [id number] 2023 Medicare [id number] 2018 Medicaid MEDICAID [facility] [id number] 2018-Present [phone] [address] [place] [address] Medicaid [id number] 2013 Medicare [id number] 1970 Unknown [id number] 2.16.840.1.018694.3.579.2.6 47 1970 Unknown [id number] 2.16.840.1.133312.3.579.2.5 93 1970 Unknown [id number] 2.16.840.1.404634.3.579.2.5 93 1970 Unknown [id number] 2.16.840.1.169559.3.579.2.5 93 1970 Unknown [id number] 2.16.840.1.475914.3.579.2.5 93 1970 Unknown [id number] 2.16.840.1.144476.3.579.2.5 93 1970 Unknown [id number] 2.16.840.1.920802.3.579.2.5 93 1970 Unknown [id number] 2.16.840.1.034339.3.579.2.5 93 1970 Unknown [id number] 2.16.840.1.356138.3.579.2.5 93 1970 Unknown [id number] 2.16.840.1.213268.3.579.2.5 93 1970 Unknown [id number] 2.16.840.1.191385.3.579.2.5 93 1970 Unknown [id number] 2.16.840.1.045805.3.579.2.5 93 1970 Unknown [id number] 2.16.840.1.543021.3.579.2.5 93 1970 Unknown [id number] 2.16.840.1.936945.3.579.2.5 93 1970 Unknown [id number] 2.16.840.1.228481.3.579.2.5 93 1970 Unknown [id number] 2.16.840.1.696279.3.579.2.5 93 1970 Unknown [id number] 2.16.840.1.980200.3.579.2.5 93 1970 Unknown [id number] 2.16.840.1.287956.3.579.2.5 93 1970 Unknown [id number] 2.16.840.1.319407.3.579.2.5 93 1970 Unknown [id number] 2.16.840.1.182284.3.579.2.5 93 1970 Unknown [id number] 2.16.840.1.130641.3.579.2.5 93 1970 Unknown [id number] 2.16.840.1.330997.3.579.2.5 93 1970 Unknown [id number] 2.16.840.1.746327.3.579.2.5 93 1970 Unknown [id number] 2.16.840.1.767074.3.579.2.7 27 1970 Unknown [id number] 2.16.840.1.835985.3.579.2.7 27 1970 Unknown [id number] 2.16.840.1.360545.3.579.2.1 259 1970 Unknown [id number] 2.16.840.1.444976.3.579.2.1 259 1970 Unknown [id number] 2.16.840.1.064170.3.579.2.1 259 1970 Unknown [id number] 2.16.840.1.946849.3.579.2.1 259 1970 Unknown [id number] 2.16.840.1.596780.3.579.2.1 259 1970 Unknown [id number] 2.16.840.1.304296.3.579.2.1 259 1970 Unknown [id number] 2.16.840.1.332734.3.579.2.1 259 1970 Unknown [id number] 2.16.840.1.510643.3.579.2.1 259 1970 Unknown [id number] 2.16.840.1.754449.3.579.2.1 259 1970 Unknown [id number] 2.16.840.1.565773.3.579.2.1 96 1970 Unknown [id number] 2.16.840.1.680808.3.579.2.1 96 1970 Unknown [id number] 2.16840.1.924546.3.579.2.1 96 1959 Medicaid [id number] 1959 Private Health Insurance [id number] 1959 Unknown [id number] 2.16.840.1.840708.19 Social History Date Type Detail Facility Start: 02-17-2014 End: 01-29-2025 Tobacco smoking status NHIS Current every day smoker [place] Start: 02-17-1994 History of tobacco use Cigarette Smo ker [place] Start: 02-17-2014 End: 08-26-2024 Cigarettes smoked current (pack per day) - Reported [place] Start: 02-17-2014 Alcohol intake Current drinke r of alcohol (finding) [place] Start: 02-17-2014 Alcohol Comment [place] Start: 1970 Sex Assigned At Not on file [place] Exposure to SARS-CoV -2 (event) Unable to assess [place] Start: 02-06-2022 Tobacco smoking status Smoker (findi ng) [facility] Start: 07-10-2023 End: 08-26-2024 Sex Assigned At Female [facility] Start: 11-15-2022 End: 06-11-2024 Tobacco smoking status Heavy tobacco smoker (finding) [facility] Start: 07-10-2023 End: 01-29-2025 Tobacco use and exposure Smokeless tobacco non-user [facility] Start: 07-10-2023 End: 01-29-2025 Alcohol intake Lifetime non-drinker (finding) [facility] Within the last year , have you been afraid of your partner or ex-partner? No [facility] Do you belong to any clubs or organizations such as holiness groups, unions, fraternal [...] Equipment Origin al Text Equipment Identifier Dates [id number] Start: 01-18-2024 USE TO TEST BLOO D SUGAR 4 TIMES DAILY [id number] Start: 07-07-2024 Functional Status Date Assessment Result Facility 01-26-2025 Patient Health Quest ionnaire 2 item (PHQ-2) [Reported] [facility] 01-26-2025 Trouble falling or s taying asleep, or sleeping too much Not at all 01/26/2025 4:13 PM EDT Mychart, Generic Not at all [facility] 01-26-2025 Feeling tired or hav ing little energy Not at all 01/26/2025 4:13 PM EDT Mychart, Generic Not at all [facility] 01-26-2025 Poor appetite or overeating Not at all 01/26/2025 4:13 PM EDT Mychart, Generic Not at all [facility] 01-26-2025 Feeling bad about yourself-or that you are a failure or have let yourself or your family down Not at all 01/26/2025 4:13 PM EDT Mychart, Generic Not at all [facility] 01-26-2025 Trouble concentratin g on things, such as reading the newspaper or watching television Not at all 01/26/2025 4:13 PM EDT Mychart, Generic Not at all [facility] 01-26-2025 Moving or speaking s o slowly that other people could have noticed. Or the opposite - being so fidgety or restless that you have been moving around a lot more than usual Not at all 01/26/2025 4:13 PM EDT Mychart, Generic Not at all [facility] 01-26-2025 Thoughts that you wo uld be better off , or of hurting yourself in some way Not at all 01/26/2025 4:13 PM EDT Mychart, Generic Not at all [facility] 06-11-2024 Functional Status N/A [facility] 11-15-2022 Functional Status N/A [facility] 02-06-2022 Functional Status N/A [facility] Clinical Notes 01-19-2022 to 02-04-2025 Rain Souza MD - 01/29/2025 9:40 AM Savannah Blas, RETAIL TIRE SALES MANAGER - 01/26/2025 6:46 PM Savannah Blas, RETAIL TIRE SALES MANAGER - 01/26/2025 6:46 PM Savannah Blas, SILVANO [...] Follow-up as planned in 6 months[address] Thanks! [facility] 01-29-2025 History of Present illness Narrative [...] 25 mg, Oral, 2 times daily HYDROcodone-acetaminophen ([place]) 5-325 MG tablet 1 tablet, 3 times [...] Cellulitis of left lower extremity Cervical cancer ([facility]) 09/17/2023 Chronic pain of both knees 09/17/2023 COPD (chronic obstructive pulmonary disease) ([facility]) 07/10/2023 COPD exacerbation ([facility]) 09/17/2023 Decreased functional mobility 09/17/2023 Diabetic neuropathy ([facility]) 07/10/2023 Dietary counseling and surveillance Edema 07/10/2023 Elevated sed rate Elevated WBC count Essential (primary) hypertension GERD (gastroesophageal reflux disease) 09/17/2023 Hyperlipidemia 09/17/2023 Hypertension 07/10/2023 Insomnia 09/17/2023 long-term (current) use of insulin ([facility]) Lower extremity edema 09/17/2023 Mixed hyperlipidemia Morbid (severe) obesity due to excess calories ([facility]) Obstructive sleep apnea 07/10/2023 PAD (peripheral artery disease) 09/17/2023 Pancreatitis ([facility]) 09/17/2023 Pneumonia 09/17/2023 Proteinuria, unspecified Pulmonary hypertension ([facility]) 09/17/2023 Radiculopathy, lumbar region 09/17/2023 Tobacco user 09/17/2023 Type 2 diabetes mellitus with complication, with long-term current use of insulin ([facility]) 07/10/2023 Unilateral primary osteoarthritis, right hip [...] of 50.0 to 59.9 in adult ([facility]) Diet and exercise reviewed with the patient Follow up in about 4 months (around 06/01/2025). 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 Associated Problem(s): COPD (chronic [...] 25 mg, Oral, 2 times daily HYDROcodone-acetaminophen ([place]) 5-325 MG tablet 1 tablet, 3 times [...] 09/17/2023 Angiomyolipoma Anxiety and depression 07/10/2023 Asthma ([facility]) 07/10/2023 Body mass index (BMI) 50.0-59.9, adult ([facility]) Cellulitis of left lower extremity Cervical cancer ([facility]) 09/17/2023 Chronic pain of both knees 09/17/2023 COPD (chronic obstructive pulmonary disease) ([facility]) 07/10/2023 COPD exacerbation ([facility]) 09/17/2023 Decreased functional mobility 09/17/2023 Diabetic neuropathy ([facility]) 07/10/2023 Dietary counseling and surveillance Edema 07/10/2023 Elevated sed rate Elevated WBC count Essential (primary) hypertension GERD (gastroesophageal reflux disease) 09/17/2023 Hyperlipidemia 09/17/2023 Hypertension 07/10/2023 Insomnia 09/17/2023 terminal gauger (current) use of insulin ([facility]) Lower extremity edema 09/17/2023 Mixed hyperlipidemia Morbid (severe) obesity due to excess calories ([facility]) Obstructive sleep apnea 07/10/2023 PAD (peripheral artery disease) 09/17/2023 Pancreatitis ([facility]) 09/17/2023 Pneumonia 09/17/2023 Proteinuria, unspecified Pulmonary hypertension [...] is 7.4%!!! 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 Hypertension Please check blood pressure daily and record DASH diet Limit caffeine Take medication as directed Contact office if chest pain, pressure, dizziness, shortness of breath, swelling legs Recommend slow position changes Current meds: hydralazine, lisinopril, Relevant Medications hydrALAZINE (Apresoline) 25 MG tablet lisinopril 20 MG tablet Type 2 diabetes mellitus with complication, with long-term current use of insulin ([facility]) Check blood sugars daily, notify if [...] MG tablet Pulmonary hypertension (HCC) Has seen [facility] Cardiology Hyperlipidemia On statin therapy [...] (severe) obesity due to excess calories ([facility]) Discussed with patient their BMI (actual, verses [...] Associated Problem(s): Pulmonary hypertension (HCC) Has seen [facility] Cardiology Associated Problem(s): Hypertension Please [...] a yearly basis documented in this encounter [facility] 01-26-2025 Instructions Mckayla Blas NP - 01/26/2025 6:00 PM EDT Please call the [facility] to schedule your mammogram: [phone]- ext [phone] documented in this encounter [facility] 01-06-2025 Note Cardiovascular Medic [facility] SUBJECTIVE Chief Complaint Patient presents with Congestive Heart Failure Hypertension Hyperlipidemia Mitzi Macias is a 54 y.o. female here for follow-up. PMHx: HFpEF, HTN, HLD, DM, longstanding heavy smoker, COPD, DANIEL, morbid obesity HPI 01/06/2025 Since last seen she was admitted to [facility] for AMS on 12/05/2024. She [...] 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 ([facility]HCC) long-term current use of inhaled steroid Vitamin D deficiency, unspecified Vitamin deficiency Past Medical History: Diagnosis Date COPD (chronic obstructive pulmonary disease) ([facility]) Diabetes mellitus ([facility]) Hyperlipidemia Hypertension Sleep apnea Family History Problem [...] , Rfl: ergocalciferol (Vitamin D-2) 1.25 MG (95705 Units) capsule, Take 1.25 mg by mouth., [...] and at bedtime., Disp: , Rfl: HYDROcodone-acetaminophen ([place]) 5-325 mg tablet, TAKE 1 TABLET BY MOUTH THREE TIMES A DAY NEEDED FOR PAIN MUST LAST 30 DAYS, Disp: , Rfl: insulin aspart (NovoLOG) 100 unit/mL (3 mL) injection pen, Novolog Flexpen U-100 Insulin aspart 100 unit/mL (3 mL) subcutaneous, Disp: , Rfl: insulin glargine (Lantus Solostar U-100 Insulin) 100 unit/mL (3 mL) injection pen (more content not included)... [facility] 01-06-2025 Note Patient is here toda [...] weight gain. Cardiovascular: Positive for leg swelling. [facility] 12-09-2024 History of Present illness Narrative [...] bad light. She was ultimately taken to [facility] ER, no tox screen was [...] 25 mg, Oral, 2 times daily HYDROcodone-acetaminophen ([place]) 5-325 MG tablet 1 tablet, 3 times [...] CT Albuminuria 09/17/2023 Angiomyolipoma Anxiety and depression ([facility]) 07/10/2023 Asthma 07/10/2023 Body mass index (BMI) 50.0-59.9, adult ([facility]) Cellulitis of left lower extremity Cervical cancer ([facility]) 09/17/2023 Chronic pain of both knees 09/17/2023 COPD (chronic obstructive pulmonary disease) ([facility]) 07/10/2023 COPD exacerbation ([facility]) 09/17/2023 Decreased functional mobility 09/17/2023 Diabetic neuropathy ([facility]) 07/10/2023 Dietary counseling and surveillance Edema 07/10/2023 Elevated sed rate Elevated WBC count Essential (primary) hypertension ([facility]) GERD (gastroesophageal reflux disease) 09/17/2023 Hyperlipidemia ([facility]) 09/17/2023 Hypertension ([facility]) 07/10/2023 Insomnia 09/17/2023 long-term (current) use of insulin ([facility]) Lower extremity edema 09/17/2023 Mixed hyperlipidemia ([facility]) Morbid (severe) obesity due to excess calories ([facility]) Obstructive sleep apnea 07/10/2023 PAD (peripheral artery disease) ([facility]) 09/17/2023 Pancreatitis 09/17/2023 Pneumonia 09/17/2023 Proteinuria, unspecified Pulmonary hypertension ([facility]) 09/17/2023 Radiculopathy, lumbar region 09/17/2023 Tobacco user 09/17/2023 Type 2 diabetes mellitus with complication, with long-term current use of insulin ([facility]) 07/10/2023 Unilateral primary osteoarthritis, right hip [...] Problem List Items Addressed This Visit Hypertension ([facility]) Please check blood pressure daily and record DASH diet Limit caffeine Take medication as directed Contact office if chest pain, pressure, dizziness, shortness of breath, swelling legs Recommend slow position changes Current meds: hydralazine, lisinopril, Type 2 diabetes mellitus with complication, with long-term current use of insulin ([facility]) Check blood sugars daily, notify if [...] secondary to her steroids Anxiety and depression ([facility]) Current meds: elavil, duloxtine, COPD exacerbation ([facility]) Recent ER visit for unresponsiveness , found to have fever and elevated WBC Sent home with steroids and atb Breathing is better and she feels back to her normal baseline Does have home O2, she is not wearing this today Pulmonary hypertension ([facility]) Has seen [facility] Cardiology Morbid (severe) obesity due to excess calories ([facility]) Discussed with patient their BMI (actual, [...] Associated Problem(s): Pulmonary hypertension (CMS/HCC) Has seen [facility] Cardiology Associated Problem(s): Hypertension (CMS/HCC) [...] wearing this today documented in this encounter [facility] 12-09-2024 Instructions Mckayla Blas NP - 12/09/2024 10:00 AM EDT Keep appt with wound care today Keep fu with me, sooner if needed documented in this encounter [facility] 10-27-2024 History of Present illness Narrative [...] PPI Associated Problem(s): PAD (peripheral artery disease) ([facility]) Asa, statin Quit smoking BP and [...] 25 mg, Oral, 2 times daily HYDROcodone-acetaminophen ([place]) 5-325 MG tablet 1 tablet, 3 times [...] CT Albuminuria 09/17/2023 Angiomyolipoma Anxiety and depression ([facility]) 07/10/2023 Asthma 07/10/2023 Body mass index (BMI) 50.0-59.9, adult ([facility]) Cellulitis of left lower extremity Cervical cancer ([facility]) 09/17/2023 Chronic pain of both knees 09/17/2023 COPD (chronic obstructive pulmonary disease) ([facility]) 07/10/2023 COPD exacerbation ([facility]) 09/17/2023 Decreased functional mobility 09/17/2023 Diabetic neuropathy ([facility]) 07/10/2023 Dietary counseling and surveillance Edema 07/10/2023 Elevated sed rate Elevated WBC count Essential (primary) hypertension ([facility]) GERD (gastroesophageal reflux disease) 09/17/2023 Hyperlipidemia ([facility]) 09/17/2023 Hypertension ([facility]) 07/10/2023 Insomnia 09/17/2023 terminal gauger (current) use of insulin ([facility]) Lower extremity edema 09/17/2023 Mixed hyperlipidemia ([facility]) Morbid (severe) obesity due to excess calories ([facility]) Obstructive sleep apnea 07/10/2023 PAD (peripheral artery disease) ([facility]) 09/17/2023 Pancreatitis 09/17/2023 Pneumonia 09/17/2023 Proteinuria, unspecified Pulmonary hypertension ([facility]) 09/17/2023 Radiculopathy, lumbar region 09/17/2023 Tobacco user 09/17/2023 Type 2 diabetes mellitus with complication, with long-term current use of insulin ([facility]) 07/10/2023 Unilateral primary osteoarthritis, right hip [...] List Items Addressed This Visit Diabetic neuropathy ([facility]) - Primary Continue with cintia hudson is prescribing OARRS reviewed Fu in 3 months Goal: tighter glucose control, this has been improving, latest A1c is 7.4%!!! Hypertension ([facility]) Please check blood pressure daily and record DASH diet Limit caffeine Take medication as directed Contact office if chest pain, pressure, dizziness, shortness of breath, swelling legs Recommend slow position changes Current meds: hydralazine, lisinopril, Relevant Medications hydrALAZINE (Apresoline) 25 MG tablet lisinopril 20 MG tablet Type 2 diabetes mellitus with complication, with long-term current use of insulin ([facility]) Check blood sugars daily, notify if [...] 81 MG chewable tablet Anxiety and depression ([facility]) Current meds: elavil, duloxtine, Relevant Medications DULoxetine [...] Morbid (severe) obesity due to excess calories ([facility]) Discussed with patient their BMI (actual, [...] mounjaro for DM Chronic diastolic heart failure ([facility]/HCC) Current meds; asa, farxiga, lasix, hydralazine, lisinopril, Follows with [facility] Reviewed 08/02 notes Cigarette nicotine dependence without complication Is currently using chantix, and is doing well, less desire, smoking less Vitamin D deficiency, unspecified Relevant Medications ergocalciferol (Vitamin D2) 1.25 MG (08829 UT) capsule Gastro-esophageal reflux disease without esophagitis [...] A1c is 7.4%!!! documented in this encounter [facility] 10-27-2024 Instructions Mckayla Blas NP - 10/27/2024 2:00 PM EDT No dose changes in meds You will be due for mammogram I will send order to [facility], they should call you to schedule If no call, please call [phone] documented in this encounter [facility] 10-08-2024 History of Present illness Narrative [...] or chew. ergocalciferol (Vitamin D2) 1.25 MG (14546 UT) capsule TAKE 1 CAPSULE BY MOUTH [...] 25 mg, Oral, 2 times daily HYDROcodone-acetaminophen ([place]) 5-325 MG tablet 1 tablet, 3 times [...] CT Albuminuria 09/17/2023 Angiomyolipoma Anxiety and depression ([facility]) 07/10/2023 Asthma ([facility]) 07/10/2023 Body mass index (BMI) 50.0-59.9, adult ([facility]) Cellulitis of left lower extremity Cervical cancer ([facility]) 09/17/2023 Chronic pain of both knees 09/17/2023 COPD (chronic obstructive pulmonary disease) ([facility]) 07/10/2023 COPD exacerbation ([facility]) 09/17/2023 Decreased functional mobility 09/17/2023 Diabetic neuropathy ([facility]) 07/10/2023 Dietary counseling and surveillance Edema 07/10/2023 Elevated sed rate Elevated WBC count Essential (primary) hypertension ([facility]) GERD (gastroesophageal reflux disease) 09/17/2023 Hyperlipidemia ([facility]) 09/17/2023 Hypertension ([facility]) 07/10/2023 Insomnia 09/17/2023 long-term (current) use of insulin ([facility]) Lower extremity edema 09/17/2023 Mixed hyperlipidemia ([facility]) Morbid (severe) obesity due to excess calories ([facility]) Obstructive sleep apnea 07/10/2023 PAD (peripheral artery disease) ([facility]) 09/17/2023 Pancreatitis 09/17/2023 Pneumonia 09/17/2023 Proteinuria, unspecified Pulmonary hypertension ([facility]) 09/17/2023 Radiculopathy, lumbar region 09/17/2023 Tobacco user 09/17/2023 Type 2 diabetes mellitus with complication, with long-term current use of insulin ([facility]) 07/10/2023 Unilateral primary osteoarthritis, right hip [...] months (around 02/07/2025). documented in this encounter [facility] 08-27-2024 History of Present illness Narrative [...] or chew. ergocalciferol (Vitamin D2) 1.25 MG (13930 UT) capsule TAKE 1 CAPSULE BY MOUTH [...] 25 mg, Oral, 2 times daily HYDROcodone-acetaminophen ([place]) 5-325 MG tablet 1 tablet, 3 times [...] Angiomyolipoma Anxiety and depression (CMS/HCC) 07/10/2023 Asthma ([facility]) 07/10/2023 Body mass index (BMI) 50.0-59.9, adult ([facility]) Cellulitis of left lower extremity Cervical cancer ([facility]) 09/17/2023 Chronic pain of both knees 09/17/2023 COPD (chronic obstructive pulmonary disease) ([facility]) 07/10/2023 COPD exacerbation ([facility]) 09/17/2023 Decreased functional mobility 09/17/2023 Diabetic neuropathy ([facility]) 07/10/2023 Dietary counseling and surveillance Edema 07/10/2023 Elevated sed rate Elevated WBC count Essential (primary) hypertension ([facility]) GERD (gastroesophageal reflux disease) 09/17/2023 Hyperlipidemia ([facility]) 09/17/2023 Hypertension ([facility]) 07/10/2023 Insomnia 09/17/2023 terminal gauger (current) use of insulin ([facility]) Lower extremity edema 09/17/2023 Mixed hyperlipidemia ([facility]) Morbid (severe) obesity due to excess calories ([facility]) Obstructive sleep apnea 07/10/2023 PAD (peripheral artery disease) ([facility]) 09/17/2023 Pancreatitis 09/17/2023 Pneumonia 09/17/2023 Proteinuria, unspecified Pulmonary hypertension ([facility]) 09/17/2023 Radiculopathy, lumbar region 09/17/2023 Tobacco user 09/17/2023 Type 2 diabetes mellitus with complication, with long-term current use of insulin ([facility]) 07/10/2023 Unilateral primary osteoarthritis, right hip 09/17/2023 [...] nicotine patches Associated Problem(s): Anxiety and depression ([facility]/HCC) Current meds: elavil, duloxtine, PHQ 9= 5 IRENE 7=3 Current meds: TCA, and duloxetine Associated Problem(s): Type 2 diabetes mellitus with complication, with long-term current use of insulin ([facility]) Check blood sugars daily, notify if [...] Associated Problem(s): COPD (chronic obstructive pulmonary disease) ([facility]) Follows with verena Needs smoking cessation Current meds: duoneb, albuterol, daliresp, Associated Problem(s): Asthma ([facility]) Current meds: albuterol, duoneb, 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 year old female patient being seen for follow-up on diastolic heart failure, shortness of breath and hypertension Patient Active Problem List Diagnosis Abdominal pannus Adrenal mass 1 cm to 4 cm in diameter ([facility]) Albuminuria RAGHU positive Anxiety and depression Arthritis Asthma Bilateral lower extremity edema BMI 50.0-59.9, adult ([facility]) Candidiasis of breast Cardiomegaly Cervical cancer ([facility]/HCC) Chronic pain of both knees Closed fracture of upper end of humerus Acute respiratory distress syndrome ([facility]) Decreased functional mobility Diabetic neuropathy ([facility]) Easy bruising GERD (gastroesophageal reflux disease) Gout Headache Hyperlipidemia Hypertension Insomnia Kidney stone Left flank pain Mixed incontinence Class 3 severe obesity with serious comorbidity and body mass index (BMI) of 50.0 to 59.9 in adult ([facility]) Non-seasonal allergic rhinitis Obstructive sleep apnea Other chronic pain PAD (peripheral artery disease) ([facility]) Pneumonia Encounter for screening mammogram for malignant neoplasm of breast Pulmonary hypertension ([facility]) Radiculopathy, lumbar region Current smoker Type 2 diabetes mellitus with complication, with long-term current use of insulin ([facility]) Unilateral primary osteoarthritis, right hip Vaginal yeast infection Venous insufficiency Bad odor of urine Critical limb ischemia of right lower extremity ([facility]) Hyperpigmentation of skin 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 2 diabetes mellitus ([facility]) Myelolipoma of adrenal gland Venous ulcer of right leg ([facility]) HPI Patient was has history of chronic [...] Diagnosis Date COPD (chronic obstructive pulmonary disease) ([facility]) Diabetes mellitus ([facility]) Hyperlipidemia Hypertension Sleep apnea Past Surgical History: [...] , Rfl: ergocalciferol (Vitamin D-2) 1.25 MG (76918 Units) capsule, Take 1.25 mg by mouth., [...] and at bedtime., Disp: , Rfl: HYDROcodone-acetaminophen ([place]) 5-325 mg tablet, TAKE 1 TABLET BY [...] TWICE DAILY, Disp: (more content not included)... [facility] 07-14-2024 History of Present illness Narrative [...] or chew. ergocalciferol (Vitamin D2) 1.25 MG (30247 UT) capsule TAKE 1 CAPSULE BY MOUTH ONE TIME PER WEEK furosemide (LASIX) 40 mg, Oral, Daily furosemide (LASIX) 20 mg, Oral, Daily PRN, Take in the afternoon as needed hydrALAZINE (APRESOLINE) 25 mg, Oral, 2 times daily HYDROcodone-acetaminophen ([place]) 5-325 MG tablet 1 tablet, 3 times [...] CT Albuminuria 09/17/2023 Angiomyolipoma Anxiety and depression ([facility]) 07/10/2023 Asthma ([facility]) 07/10/2023 Body mass index (BMI) 50.0-59.9, adult ([facility]) Cellulitis of left lower extremity Cervical cancer ([facility]) 09/17/2023 Chronic pain of both knees 09/17/2023 COPD (chronic obstructive pulmonary disease) ([facility]) 07/10/2023 COPD exacerbation ([facility]) 09/17/2023 Decreased functional mobility 09/17/2023 Diabetic neuropathy ([facility]) 07/10/2023 Dietary counseling and surveillance Edema 07/10/2023 Elevated sed rate Elevated WBC count Essential (primary) hypertension ([facility]) GERD (gastroesophageal reflux disease) 09/17/2023 Hyperlipidemia ([facility]) 09/17/2023 Hypertension ([facility]) 07/10/2023 Insomnia 09/17/2023 terminal gauger (current) use of insulin ([facility]) Lower extremity edema 09/17/2023 Mixed hyperlipidemia ([facility]) Morbid (severe) obesity due to excess calories ([facility]) Obstructive sleep apnea 07/10/2023 PAD (peripheral artery disease) ([facility]) 09/17/2023 Pancreatitis 09/17/2023 Pneumonia 09/17/2023 Proteinuria, unspecified Pulmonary hypertension ([facility]) 09/17/2023 Radiculopathy, lumbar region 09/17/2023 Tobacco user 09/17/2023 Type 2 diabetes mellitus with complication, with long-term current use of insulin ([facility]) 07/10/2023 Unilateral primary osteoarthritis, right hip 09/17/2023 [...] List Items Addressed This Visit Diabetic neuropathy ([facility]) Continue with lyrica OARRS reviewed Fu in 3 months COPD (chronic obstructive pulmonary disease) ([facility]) Stable at this time, no changes in meds Encouraged smoking cessation Cont with dr Yañez Hypertension ([facility]) - Primary Please check blood pressure daily and record DASH diet Limit caffeine Take medication as directed Contact office if chest pain, pressure, dizziness, shortness of breath, swelling legs Recommend slow position changes Current meds: hydralazine, lisinopril, Type 2 diabetes mellitus with complication, with long-term current use of insulin ([facility]) Check blood sugars daily, notify if <70 [...] take over prescribing PAD (peripheral artery disease) ([facility]) Asa, statin Quit smoking BP and [...] 1 cm to 4 cm in diameter ([facility]) Continue with Urology Kidney stone Continue with Urology Non-seasonal allergic rhinitis Relevant Medications cetirizine (ZyrTEC) 10 MG tablet Critical limb ischemia of right lower extremity ([facility]) Saw vascular, does have narrowing in arteries in legs, and thus the wounds not healing At this point they strongly urge to quit smoking or risk limb amputation Cont asa and statin Also good blood pressure and sugar control Venous ulcer of right leg ([facility]) Encounter for smoking cessation counseling Relevant Medications nicotine (Nicoderm, Step 1) 21 MG/24HR patch Other Visit Diagnoses Type 2 diabetes mellitus with unspecified complications ([facility]) Quitting smokinppd, chantix not helped, ] Face [...] complication, with long-term current use of insulin ([facility]) Check blood sugars daily, notify if [...] in 3 months documented in this encounter [facility] 06-11-2024 Hospital Discharge instructions Patient Education [...] require a prescription. You can also purchase brmm-jxe-nhayaao medicines. Medicines may have nicotine in them [...] and encouragement. Call telephone quitlines, such as 3-387-EOJM-NOW, reach out to support groups, or work [...] provider. Document Revised: 06/16/2022 Document Reviewed: 06/16/2022 [employer] Patient Education 2023 [employer]. 06/11/2024 10:39:22 Dietary Guidelines to Help Prevent [...] include: ?8 oz (237 mL) of milk, sgbdrty-noscdkycbanh-znmaj milk, and calcium-fortifiedfruit juice. Calcium-fortified means that [...] ?Spinach (cooked), rhubarb, beets, sweet potatoes, and Mauritanian chard. ?Peanuts. ?Potato chips, mohawk fries, and baked potatoes with skin on. ?Nuts and nut products. ?Chocolate. If you regularly take a diuretic medicine, make sure to eat at least 1 or 2 servings of fruits or vegetables that are high in potassium each day. These include: ?Avocado. ?Banana. ?Lafourche, prune, carrot, or tomato juice. ?Baked potato. [...] magnesium, fish oil, or vitamin B6. Take ctwr-byh-fmmmgch and prescription medicines only as told by [...] Casseroles. Pizza. Lasagna. Frozen meals. Potato chips. Israeli fries. The items listed above may not [...] provider. Document Revised: 10/05/2022 Document Reviewed: 10/05/2022 [employer] Patient Education 2023 [employer]. Follow Up Care 05/06/2024 08:24:56 With:REGLA PHIPPS, Elbert Joya, URL Address: [facility] [address] , [place] [address]- When: Unknown [facility] 05-27-2024 History of Present illness Narrative [...] or chew. ergocalciferol (Vitamin D2) 1.25 MG (92450 UT) capsule TAKE 1 CAPSULE BY MOUTH ONE TIME PER WEEK furosemide (LASIX) 20 mg, Oral, Daily PRN, Take in the afternoon as needed furosemide (LASIX) 40 mg, Oral, Daily Glucose Blood (ACCU-CHEK JAQUI PLUS ) 4 times daily hydrALAZINE (APRESOLINE) 25 mg, Oral, 2 times daily HYDROcodone-acetaminophen (Saratoga) 5-325 MG tablet 1 tablet, 3 times [...] CT Albuminuria 09/17/2023 Angiomyolipoma Anxiety and depression ([facility] 07/10/2023 Asthma ([facility]) 07/10/2023 Body mass index (BMI) 50.0-59.9, adult ([facility]) Cellulitis of left lower extremity Cervical cancer ([facility]) 09/17/2023 Chronic pain of both knees 09/17/2023 COPD (chronic obstructive pulmonary disease) ([facility] 07/10/2023 COPD exacerbation ([facility]) 09/17/2023 Decreased functional mobility 09/17/2023 Diabetic neuropathy ([facility]) 07/10/2023 Dietary counseling and surveillance Edema 07/10/2023 Elevated sed rate Elevated WBC count GERD (gastroesophageal reflux disease) 09/17/2023 Hyperlipidemia ([facility]) 09/17/2023 Hypertension ([facility]) 07/10/2023 Insomnia 09/17/2023 long-term (current) use of insulin ([facility]) Lower extremity edema 09/17/2023 Morbid (severe) obesity due to excess calories ([facility]) Obstructive sleep apnea 07/10/2023 PAD (peripheral artery disease) ([facility]) 09/17/2023 Pancreatitis 09/17/2023 Pneumonia 09/17/2023 Proteinuria, unspecified Pulmonary hypertension ([facility]) 09/17/2023 Radiculopathy, lumbar region 09/17/2023 Tobacco user 09/17/2023 Type 2 diabetes mellitus with complication, with long-term current use of insulin ([facility]) 07/10/2023 Unilateral primary osteoarthritis, right hip [...] hyperglycemia, with long-term current use of insulin ([facility]) - POCT glucose manually resulted - POCT glycosylated hemoglobin (Hb A1C) docked device We will continue with Lantus 58, lispro 08/10/12 according to meal size, Mounjaro 15 mg once weekly, Farxiga 5 mg once a day Encounter for dietary consultation Vitamin D deficiency Primary hypertension ([facility]) To follow with her PCP Insulin long-term use ([facility]) Hyperlipemia, mixed ([facility]) Continue with Zocor 10 mg once daily Microalbuminuria Class 3 severe obesity due to excess calories with serious comorbidity and body mass index (BMI) of 50.0 to 59.9 in adult ([facility]) Diet and exercise reviewed with the patient Follow up in about 3 months (around 08/27/2024). documented in this encounter [facility] 04-14-2024 History of Present illness Narrative Associated Problem(s): Hyperpigmentation of skin Will try cerevue ointment to see if helps Associated Problem(s): Tobacco user Urged to quit Associated Problem(s): Type 2 diabetes mellitus with complication, with long-term current use of insulin ([facility]) Check blood sugars daily, follow w [...] being taken. She does not see a geophysical computer.Eye exam is not current. Hypertension This is [...] or chew. ergocalciferol (Vitamin D2) 1.25 MG (34496 UT) capsule TAKE 1 CAPSULE BY MOUTH ONE TIME PER WEEK furosemide (LASIX) 20 mg, Oral, Daily PRN, Take in the afternoon as needed furosemide (LASIX) 40 mg, Oral, Daily Glucose Blood (ACCU-CHEK JAQUI PLUS ) 4 times daily HumaLOG KWIKPEN 100 UNIT/ML injection Subcutaneous hydrALAZINE (APRESOLINE) 25 mg, Oral, 2 times daily HYDROcodone-acetaminophen (Saratoga) 5-325 MG tablet 1 tablet, 3 times [...] CT Albuminuria 09/17/2023 Angiomyolipoma Anxiety and depression ([facility]) 07/10/2023 Asthma ([facility] 07/10/2023 Cellulitis of left lower extremity Cervical cancer ([facility]) 09/17/2023 Chronic pain of both knees 09/17/2023 COPD (chronic obstructive pulmonary disease) ([facility] 07/10/2023 COPD exacerbation ([facility]) 09/17/2023 Decreased functional mobility 09/17/2023 Diabetic neuropathy ([facility]) 07/10/2023 Edema 07/10/2023 Elevated sed rate Elevated WBC count GERD (gastroesophageal reflux disease) 09/17/2023 Hyperlipidemia ([facility] 09/17/2023 Hypertension ([facility]) 07/10/2023 Insomnia 09/17/2023 Lower extremity edema 09/17/2023 Obstructive sleep apnea 07/10/2023 PAD (peripheral artery disease) ([facility]) 09/17/2023 Pancreatitis 09/17/2023 Pneumonia 09/17/2023 Pulmonary hypertension ([facility]) 09/17/2023 Radiculopathy, lumbar region 09/17/2023 Tobacco user 09/17/2023 Type 2 diabetes mellitus with complication, with long-term current use of insulin ([facility]) 07/10/2023 Unilateral primary osteoarthritis, right hip [...] List Items Addressed This Visit Diabetic neuropathy ([facility]) Continue with tristan EAST reviewed Fu in 3 months Relevant Medications pregabalin (Lyrica) 300 MG capsule COPD (chronic obstructive pulmonary disease) ([facility]) - Primary Stable at this time, no changes in meds Encouraged smoking cessation Cont with dr Yañez Hypertension ([facility]) Stable on current meds Refill meds Relevant Medications hydrALAZINE (Apresoline) 25 MG tablet lisinopril 20 MG tablet Type 2 diabetes mellitus with complication, with long-term current use of insulin ([facility]) Check blood sugars daily, follow w [...] 81 MG chewable tablet Anxiety and depression ([facility]) Relevant Medications DULoxetine (Cymbalta) [address] capsule Bilateral lower extremity edema Stable on current meds Insomnia Relevant Medications amitriptyline (Elavil) 25 MG tablet Tobacco user Urged to quit Non-seasonal allergic rhinitis Relevant Medications cetirizine (ZyrTEC) 10 MG tablet Hyperpigmentation of skin Will try cerevue ointment to see if helps Other Visit Diagnoses Type 2 diabetes mellitus with unspecified complications ([facility]) Relevant Medications dapagliflozin (Farxiga) 10 MG Gastro-esophageal reflux disease without esophagitis Relevant Medications omeprazole (PriLOSEC) [address] capsule Edema, unspecified Relevant Medications potassium chloride ER (Micro-K) 10 MEQ ER capsule Edema Relevant Medications potassium chloride ER (Micro-K) 10 MEQ ER capsule Chronic obstructive pulmonary disease, unspecified ([facility]) Relevant Medications Roflumilast 500 MCG tablet documented in this encounter [facility] 11-15-2022 Hospital Discharge instructions Patient Education [...] include: ?8 oz (237 mL) of milk, efjojnz-mljwjxcyojga-mlhaz milk, and calcium-fortifiedfruit juice. Calcium-fortified means that [...] ?Spinach (cooked), rhubarb, beets, sweet potatoes, and Mauritanian chard. ?Peanuts. ?Potato chips, mohawk fries, and baked potatoes with skin on. ?Nuts and nut products. ?Chocolate. If you regularly take a diuretic medicine, make sure to eat at least 1 or 2 servings of fruits or vegetables that are high in potassium each day. These include: ?Avocado. ?Banana. ?Lafourche, prune, carrot, or tomato juice. ?Baked potato. [...] magnesium, fish oil, or vitamin B6. Take vmqv-yre-rlukstq and prescription medicines only as told by [...] Casseroles. Pizza. Lasagna. Frozen meals. Potato chips. Israeli fries. The items listed above may not [...] provider. Document Revised: 03/06/2022 Document Reviewed: 03/06/2022 [employer] Patient Education 2022 [employer]. Follow Up Care 02/06/2022 11:44:09 With:SILVIA HOWELL, SARAH Webb, URL Address: [address] [place] [address] When: Unknown [facility] [employer] 08-24-2022 Note CONSULTATION CONSULTATION DATE: 08/24/2022 HISTORY [...] We maintain her on pain medication with Saratoga 5/325 t.i.d., diclofenac 75 mg b.i.d. Her [...] her at this point. A refill for Saratoga 5/325 t.i.d. and diclofenac 75 mg b.i.d. will be sent to the pharmacy. Vitamin compliance and nutrition were discussed and enforced. I did highly encourage her to use exercise bands to increase the strength in her lower extremities. We will see her in three months' time, unless otherwise indicated, and patient agrees. [facility] 05-11-2022 Note CONSULTATION CONSULTATION DATE: 05/11/2022 [...] 150. Medications include Lyrica 300 mg b.i.d., Saratoga 5/325 t.i.d., diclofenac 75 mg b.i.d. and [...] her medications today. We will maintain Lyrica, Saratoga and diclofenac at the set dose and frequency. We will follow-up in the clinic in three months' time. The patient is in agreement to this. Vitamin importance and nutrition were discussed. [facility] 04-20-2022 Note CONSULTATION CONSULTATION DATE: 04/20/2022 [...] medications include Tylenol, Lyrica 300 mg b.i.d., Saratoga 5/325 t.i.d., amitriptyline, diclofenac and duloxetine. Patient's [...] up in the clinic. [facility] 03-08-2022 Evaluation note Encounter Date Diagnosis [...] to the DANI[facility]. Thrombocytopenia is unclear etiology. [employer] Other 08-15-2022 Evaluation note* Encounter Date Diagnosis [...] follow with Dr. Souza and Dr. Arauz. [employer] Other 08-01-2022 Hospital Discharge instructions Patient Education [...] fried and sweet foods. General instructions Take iiwx-dpq-qscqafn and prescription medicines only as told by [...] 04/21/2010 Document Revised: 10/16/2019 Document Reviewed: 07/11/2018 [employer] Patient Education 2020 [employer] Follow Up Care 01/05/2022 12:02:03 With:REGLA PHIPPS, Elbert Joya, URL Address: [facility] [address], [place] [address] [phone] When:Within 6 Month(s) Comments:w/ repeat CT A/P [facility] 07-14-2022 NoteCONSULTATION PROCEDURE DATE: 01/19/2022 PRE [...] Approved by: GIL VALENZUELA . 01/27/2022 14:15:00[facility]07-14-2022 NoteCONSULTATION CONSULTATION DATE: 01/19/2022 This is [...] today. Medications include Lyrica 300 mg b.i.d., Saratoga 5/325 t.i.d., diclofenac 75 mg b.i.d. and [...] Approved by: GIL VALENZUELA . 01/27/2022 14:[facility]ments Appointment Date:08/14/2022 09:15:00 AM Scheduled Provider:Elbert ARAUZ MD Location:[facility] Appointment Type:URO Office Visit [facility] Evaluation + Plan note Future Appointments Appointment Date:04/22/2024 10:00:00 AM Scheduled Provider:SARAH VEGA PA-C Location:[facility] Appointment Type:URO Office Visit [facility] evaluation note* Diagnosis Type 2 diabetes [...] skin Other dyschromia documented in this encounter [facility] Healthcare[facility]* Diagnosis Obstructive sleep apnea- [...] Type 2 diabetes mellitus with unspecified complications ([facility]) Anxiety and depression ([facility]) Gastro-esophageal reflux disease without esophagitis Edema, unspecified Edema Diabetic polyneuropathy associated with type 2 diabetes mellitus ([facility]) Chronic obstructive pulmonary disease, unspecified ([facility]) Pulmonary emphysema, unspecified emphysema type ([facility]) Bilateral lower extremity edema Tobacco user Tobacco use disorder Hyperpigmentation of skin Other dyschromia Type 2 diabetes mellitus with hyperglycemia, with long-term current use of insulin ([facility])- Primary Encounter for dietary consultation Vitamin D deficiency Primary hypertension ([facility]) Unspecified essential hypertension Insulin long-term use ([facility]) Encounter for long-term (current) use of insulin Hyperlipemia, mixed ([facility]) Mixed hyperlipidemia Microalbuminuria Proteinuria Class 3 severe obesity due to excess calories with serious comorbidity and body mass index (BMI) of 50.0 to 59.9 in adult ([facility]) documented in this encounter [facility] HealthcareEvaluation note* Diagnosis Hyperlipidemia, unspecified ([facility]) Bilateral lower extremity edema documented in this encounter [facility]* Diagnosis Vitamin D deficiency, unspecified documented in this encounter [facility] HealthcareEvaluation note* Diagnosis Obstructive sleep apnea- Primary Obstructive sleep apnea (adult) (pediatric) Pulmonary emphysema, unspecified emphysema type ([facility]) Primary hypertension ([facility]) Unspecified essential hypertension Type 2 diabetes mellitus with complication, with long-term current use of insulin ([facility]) Anxiety and depression ([facility]) Bilateral lower extremity edema Pulmonary emphysema, unspecified emphysema type ([facility])- Primary Primary hypertension ([facility]) Unspecified essential hypertension Class 3 severe obesity with serious comorbidity and body mass index (BMI) of 50.0 to 59.9 in adult, unspecified obesity type ([facility]) Obstructive sleep apnea Obstructive sleep apnea (adult) (pediatric) Pulmonary hypertension ([facility]) Other chronic pulmonary heart diseases Tobacco user Tobacco use disorder Cardiomegaly Primary hypertension ([facility])- Primary Unspecified essential hypertension Gastroesophageal reflux disease, unspecified whether esophagitis present Type 2 diabetes mellitus with complication, with long-term current use of insulin ([facility]) Mixed hyperlipidemia ([facility]) Mixed hyperlipidemia Tobacco user Tobacco use [...] to 59.9 in adult, unspecified obesity type ([facility]) Encounter for subsequent annual wellness visit [...] polyneuropathy associated with type 2 diabetes mellitus ([facility]) Chronic obstructive pulmonary disease, unspecified ([facility]) Pulmonary emphysema, unspecified emphysema type ([facility]) Bilateral lower extremity edema Tobacco user Tobacco use disorder Hyperpigmentation of skin Other dyschromia Bilateral lower extremity edema documented in this encounter [facility] HealthcareEvaluation note* Diagnosis Obstructive sleep apnea- Primary Obstructive sleep apnea (adult) (pediatric) Pulmonary emphysema, unspecified emphysema type ([facility]) Primary hypertension ([facility]) Unspecified essential hypertension Type 2 diabetes mellitus with complication, with long-term current use of insulin ([facility]) Anxiety and depression ([facility]) Bilateral lower extremity edema Pulmonary emphysema, unspecified emphysema type ([facility])- Primary Primary hypertension ([facility]) Unspecified essential hypertension Class 3 severe obesity with serious comorbidity and body mass index (BMI) of 50.0 to 59.9 in adult, unspecified obesity type ([facility]) Obstructive sleep apnea Obstructive sleep apnea (adult) (pediatric) Pulmonary hypertension ([facility]) Other chronic pulmonary heart diseases Tobacco user Tobacco use disorder Cardiomegaly Primary hypertension ([facility])- Primary Unspecified essential hypertension Gastroesophageal reflux disease, unspecified whether esophagitis present Type 2 diabetes mellitus with complication, with long-term current use of insulin ([facility]) Mixed hyperlipidemia ([facility]) Mixed hyperlipidemia Tobacco user Tobacco use disorder Encounter for screening mammogram for malignant neoplasm of breast Chronic obstructive pulmonary disease, unspecified ([facility]) Other specified chronic obstructive pulmonary disease ([facility]) Anxiety and depression ([facility]) Edema, unspecified Edema Hyperlipidemia, unspecified ([facility]) Diabetic polyneuropathy associated with type 2 diabetes mellitus ([facility]) Gout, unspecified cause, unspecified chronicity, unspecified site Non-seasonal allergic rhinitis, unspecified trigger Bilateral lower extremity edema COPD exacerbation ([facility]) Obstructive chronic bronchitis with exacerbation Pulmonary emphysema, unspecified emphysema type ([facility]) Venous insufficiency Unspecified venous (peripheral) insufficiency Candidiasis of breast COPD exacerbation ([facility] Primary Obstructive chronic bronchitis with exacerbation Pulmonary hypertension ([facility]) Other chronic pulmonary heart diseases Class [...] Major depressive disorder, single episode, mild (HCC) ([facility]) Major depressive disorder, single episode, mild 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 exposed ([facility]) Chronic respiratory failure, unspecified whether with hypoxia or hypercapnia ([facility]) Disorder of adrenal gland, unspecified ([facility]) Non-pressure chronic ulcer of other part [...] with unspecified complications (CMS/H[facility]) Anxiety and depression ([facility]) Gastro-esophageal reflux disease without esophagitis Edema, [...] complication, with long-term current use of insulin ([facility]) Tobacco user Tobacco use disorder Encounter for smoking cessation counseling Kidney stone Calculus of kidney Adrenal mass 1 cm to 4 cm in diameter ([facility]) Radiculopathy, lumbar region Thoracic or lumbosacral neuritis or radiculitis, unspecified Non-seasonal allergic rhinitis, unspecified trigger Type 2 diabetes mellitus with unspecified complications ([facility]) documented in this encounter [facility] HealthcareEvaluation note* Diagnosis Obstructive sleep apnea- Primary Obstructive sleep apnea (adult) (pediatric) Pulmonary emphysema, unspecified emphysema type ([facility]) Primary hypertension ([facility]) Unspecified essential hypertension Type 2 diabetes mellitus with complication, with long-term current use of insulin ([facility]) Anxiety and depression ([facility]) Bilateral lower extremity edema Pulmonary emphysema, unspecified emphysema type ([facility])- Primary Primary hypertension ([facility]) Unspecified essential hypertension Class 3 severe obesity with serious comorbidity and body mass index (BMI) of 50.0 to 59.9 in adult, unspecified obesity type ([facility]) Obstructive sleep apnea Obstructive sleep apnea (adult) (pediatric) Pulmonary hypertension ([facility]) Other chronic pulmonary heart diseases Tobacco user Tobacco use disorder Cardiomegaly Primary hypertension ([facility])- Primary Unspecified essential hypertension Gastroesophageal reflux disease, unspecified whether esophagitis present Type 2 diabetes mellitus with complication, with long-term current use of insulin ([facility]) Mixed hyperlipidemia ([facility]) Mixed hyperlipidemia Tobacco user Tobacco use disorder Encounter for screening mammogram for malignant neoplasm of breast Chronic obstructive pulmonary disease, unspecified ([facility]) Other specified chronic obstructive pulmonary disease ([facility]) Anxiety and depression ([facility]) Edema, unspecified Edema Hyperlipidemia, unspecified ([facility]) Diabetic polyneuropathy associated with type 2 diabetes mellitus ([facility]) Gout, unspecified cause, unspecified chronicity, unspecified site Non-seasonal allergic rhinitis, unspecified trigger Bilateral lower extremity edema COPD exacerbation ([facility]) Obstructive chronic bronchitis with exacerbation Pulmonary emphysema, unspecified emphysema type ([facility]) Venous insufficiency Unspecified venous (peripheral) insufficiency Candidiasis of breast COPD exacerbation ([facility])- Primary Obstructive chronic bronchitis with exacerbation Pulmonary hypertension ([facility]) Other chronic pulmonary heart diseases Class 3 severe obesity with serious comorbidity and body mass index (BMI) of 50.0 to 59.9 in adult, unspecified obesity type ([facility]) Encounter for subsequent annual wellness visit [...] (CMS/HCC) Major depressive disorder, single episode, mild ([facility]) ([facility]) Major depressive disorder, single episode, mild 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 exposed (CMS/[facility]) Chronic respiratory failure, unspecified whether with [...] with unspecified complications (CMS/HCC) Anxiety and depression (CMS/[facility]) Gastro-esophageal reflux disease without esophagitis Edema, [...] lower extremity (CMS/HCC) PAD (peripheral artery disease) (CMS/[facility]) Unspecified peripheral vascular disease Gastroesophageal reflux disease, unspecified whether esophagitis present Bilateral lower extremity edema Venous ulcer of right leg ([facility]) Type 2 diabetes mellitus with complication, with long-term current use of insulin ([facility]) Tobacco user Tobacco use disorder Encounter for smoking cessation counseling Kidney stone Calculus of kidney Adrenal mass 1 cm to 4 cm in diameter ([facility]) Radiculopathy, lumbar region Thoracic or lumbosacral neuritis or radiculitis, unspecified Non-seasonal allergic rhinitis, unspecified trigger Type 2 diabetes mellitus with unspecified complications ([facility]) Anxiety and depression ([facility])- Primary Morbid (severe) obesity due to excess calories ([facility]) Body mass index (BMI) 50.0-59.9, adult ([facility]) Malignant neoplasm of cervix uteri, unspecified ([facility]) Diabetic polyneuropathy associated with type 2 diabetes mellitus ([facility]) Chronic diastolic heart failure ([facility]) Chronic diastolic heart failure Primary hypertension ([facility]) Unspecified essential hypertension 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 ([facility]) Gastroesophageal reflux disease, unspecified whether esophagitis present Bilateral lower extremity edema Type 2 diabetes mellitus with complication, with long-term current use of insulin ([facility]) Tobacco user Tobacco use disorder Mixed hyperlipidemia ([facility]) Mixed hyperlipidemia Gout, unspecified cause, unspecified chronicity, unspecified site Vitamin deficiency Unspecified vitamin deficiency Gastro-esophageal reflux disease without esophagitis Edema, unspecified Edema Hyperlipidemia, unspecified ([facility]) Encounter for smoking cessation counseling Venous ulcer of right leg ([facility]) Antibiotic-induced yeast infection documented in this encounter [facility] HealthcareEvaluation note* Diagnosis Obstructive sleep apnea- Primary Obstructive sleep apnea (adult) (pediatric) Pulmonary emphysema, unspecified emphysema type ([facility]) Primary hypertension ([facility]) Unspecified essential hypertension Type 2 diabetes mellitus with complication, with long-term current use of insulin ([facility]) Anxiety and depression ([facility]) Bilateral lower extremity edema Pulmonary emphysema, unspecified emphysema type ([facility])- Primary Primary hypertension ([facility]) Unspecified essential hypertension Class 3 severe obesity with serious comorbidity and body mass index (BMI) of 50.0 to 59.9 in adult, unspecified obesity type Obstructive sleep apnea Obstructive sleep apnea (adult) (pediatric) Pulmonary hypertension ([facility]) Other chronic pulmonary heart diseases Tobacco user Tobacco use disorder Cardiomegaly Primary hypertension ([facility])- Primary Unspecified essential hypertension Gastroesophageal reflux disease, unspecified whether esophagitis present Type 2 diabetes mellitus with complication, with long-term current use of insulin ([facility]) Mixed hyperlipidemia ([facility]) Mixed hyperlipidemia Tobacco user Tobacco use disorder Encounter for screening mammogram for malignant neoplasm of breast Chronic obstructive pulmonary disease, unspecified Other specified chronic obstructive pulmonary disease Anxiety and depression ([facility]) Edema, unspecified Edema Hyperlipidemia, unspecified ([facility]) Diabetic polyneuropathy associated with type 2 diabetes mellitus ([facility]) Gout, unspecified cause, unspecified chronicity, unspecified site Non-seasonal allergic rhinitis, unspecified trigger Bilateral lower extremity edema COPD exacerbation ([facility]) Obstructive chronic bronchitis with exacerbation Pulmonary emphysema, unspecified emphysema type ([facility]) Venous insufficiency Unspecified venous (peripheral) insufficiency Candidiasis of breast COPD exacerbation ([facility])- Primary Obstructive chronic bronchitis with exacerbation Pulmonary hypertension ([facility]) Other chronic pulmonary heart diseases Class 3 severe obesity with serious comorbidity and body mass index (BMI) of 50.0 to 59.9 in adult, unspecified obesity type Encounter for subsequent annual wellness visit (AWV) in Medicare patient- Primary Type 2 diabetes mellitus with unspecified complications Pulmonary emphysema, unspecified emphysema type ([facility]) Moderate persistent asthma without complication ([facility]) Primary hypertension ([facility]) Unspecified essential hypertension Type 2 diabetes mellitus with complication, with long-term current use of insulin ([facility]) Class 3 severe obesity with serious comorbidity and body mass index (BMI) of 50.0 to 59.9 in adult, unspecified obesity type Tobacco user Tobacco use disorder Other headache syndrome Malignant neoplasm of cervix uteri, unspecified Other specified disorders of adrenal gland Major depressive disorder, single episode, mild (HCC) ([facility]) Major depressive disorder, single episode, mild 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 exposed Chronic respiratory failure, unspecified whether with hypoxia or hypercapnia Disorder of adrenal gland, unspecified Non-pressure chronic ulcer of other part of right lower leg limited to breakdown of skin ([facility]) Non-recurrent acute suppurative otitis media of left ear without spontaneous rupture of tympanic membrane Primary hypertension ([facility])- Primary Unspecified essential hypertension Insomnia Insomnia, unspecified Type 2 diabetes mellitus with complication, with long-term current use of insulin ([facility]) Non-seasonal allergic rhinitis, unspecified trigger Type 2 diabetes mellitus with unspecified complications Anxiety and depression ([facility]) Gastro-esophageal reflux disease without esophagitis Edema, unspecified Edema Diabetic polyneuropathy associated with type 2 diabetes mellitus ([facility]) Chronic obstructive pulmonary disease, unspecified Pulmonary emphysema, unspecified emphysema type ([facility]) Bilateral lower extremity edema Tobacco user Tobacco use disorder Hyperpigmentation of skin Other dyschromia Primary hypertension ([facility])- Primary Unspecified essential hypertension Diabetic polyneuropathy associated with type 2 diabetes mellitus ([facility]) Pulmonary emphysema, unspecified emphysema type ([facility]) Critical limb ischemia of right lower extremity ([facility]) PAD (peripheral artery disease) ([facility]) Unspecified peripheral vascular disease Gastroesophageal reflux disease, unspecified whether esophagitis present Bilateral lower extremity edema Venous ulcer of right leg ([facility]) Type 2 diabetes mellitus with complication, with long-term current use of insulin ([facility]) Tobacco user Tobacco use disorder Encounter for smoking cessation counseling Kidney stone Calculus of kidney Adrenal mass 1 cm to 4 cm in diameter ([facility]) Radiculopathy, lumbar region Thoracic or lumbosacral neuritis or radiculitis, unspecified Non-seasonal allergic rhinitis, unspecified trigger Type 2 diabetes mellitus with unspecified complications Anxiety and depression ([facility])- Primary Morbid (severe) obesity due to excess calories ([facility]) Body mass index (BMI) 50.0-59.9, adult ([facility]) Malignant neoplasm of cervix uteri, unspecified Diabetic polyneuropathy associated with type 2 diabetes mellitus ([facility]) Chronic diastolic heart failure ([facility]) Chronic diastolic heart failure Primary hypertension ([facility]) Unspecified essential hypertension 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 Gastroesophageal reflux disease, unspecified whether esophagitis present Bilateral lower extremity edema Type 2 diabetes mellitus with complication, with long-term current use of insulin ([facility]) Tobacco user Tobacco use disorder Mixed hyperlipidemia ([facility]) Mixed hyperlipidemia Gout, unspecified cause, unspecified chronicity, unspecified site Vitamin deficiency Unspecified vitamin deficiency Gastro-esophageal reflux disease without esophagitis Edema, unspecified Edema Hyperlipidemia, unspecified ([facility] Encounter for smoking cessation counseling Venous ulcer of right leg ([facility]) Antibiotic-induced yeast infection Type 2 diabetes mellitus with hyperglycemia, with long-term current use of insulin ([facility])- Primary Encounter for dietary consultation Vitamin D deficiency Primary hypertension ([facility]) Unspecified essential hypertension Insulin long-term use ([facility]) Encounter for long-term (current) use of insulin Hyperlipemia, mixed ([facility]) Mixed hyperlipidemia Microalbuminuria Proteinuria Class 3 severe obesity due to excess calories with serious comorbidity and body mass index (BMI) of 50.0 to 59.9 in adult documented in this encounter [facility] HealthcareEvaluation note* Diagnosis Obstructive sleep apnea- Primary Obstructive sleep apnea (adult) (pediatric) Pulmonary emphysema, unspecified emphysema type ([facility]) Primary hypertension ([facility]) Unspecified essential hypertension Type 2 diabetes mellitus with complication, with long-term current use of insulin ([facility]) Anxiety and depression ([facility]) Bilateral lower extremity edema Pulmonary emphysema, unspecified emphysema type ([facility])- Primary Primary hypertension ([facility]) Unspecified essential hypertension Class 3 severe obesity with serious comorbidity and body mass index (BMI) of 50.0 to 59.9 in adult, unspecified obesity type Obstructive sleep apnea Obstructive sleep apnea (adult) (pediatric) Pulmonary hypertension ([facility]) Other chronic pulmonary heart diseases Tobacco user Tobacco use disorder Cardiomegaly Primary hypertension ([facility])- Primary Unspecified essential hypertension Gastroesophageal reflux disease, unspecified whether esophagitis present Type 2 diabetes mellitus with complication, with long-term current use of insulin ([facility]) Mixed hyperlipidemia ([facility]) Mixed hyperlipidemia Tobacco user Tobacco use disorder Encounter for screening mammogram for malignant neoplasm of breast Chronic obstructive pulmonary disease, unspecified Other specified chronic obstructive pulmonary disease Anxiety and depression ([facility]) Edema, unspecified Edema Hyperlipidemia, unspecified ([facility]) Diabetic polyneuropathy associated with type 2 diabetes mellitus ([facility]) Gout, unspecified cause, unspecified chronicity, unspecified site Non-seasonal allergic rhinitis, unspecified trigger Bilateral lower extremity edema COPD exacerbation ([facility]) Obstructive chronic bronchitis with exacerbation Pulmonary emphysema, unspecified emphysema type ([facility]) Venous insufficiency Unspecified venous (peripheral) insufficiency Candidiasis of breast COPD exacerbation ([facility])- Primary Obstructive chronic bronchitis with exacerbation Pulmonary hypertension ([facility]) Other chronic pulmonary heart diseases Class 3 severe obesity with serious comorbidity and body mass index (BMI) of 50.0 to 59.9 in adult, unspecified obesity type Encounter for subsequent annual wellness visit (AWV) in Medicare patient- Primary Type 2 diabetes mellitus with unspecified complications Pulmonary emphysema, unspecified emphysema type ([facility]) Moderate persistent asthma without complication ([facility]) Primary hypertension (CMS/[facility]) Unspecified essential hypertension Type 2 diabetes mellitus with complication, with long-term current use of insulin ([facility]) Class 3 severe obesity with serious comorbidity and body mass index (BMI) of 50.0 to 59.9 in adult, unspecified obesity type Tobacco user Tobacco use disorder Other headache syndrome Malignant neoplasm of cervix uteri, unspecified Other specified disorders of adrenal gland Major depressive disorder, single episode, mild (HCC) ([facility]) Major depressive disorder, single episode, mild 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 exposed Chronic respiratory failure, unspecified whether with hypoxia or hypercapnia Disorder of adrenal gland, unspecified Non-pressure chronic ulcer of other part of right lower leg limited to breakdown of skin ([facility]) Non-recurrent acute suppurative otitis media of left ear without spontaneous rupture of tympanic membrane Primary hypertension ([facility])- Primary Unspecified essential hypertension Insomnia Insomnia, unspecified Type 2 diabetes mellitus with complication, with long-term current use of insulin ([facility]) Non-seasonal allergic rhinitis, unspecified trigger Type 2 diabetes mellitus with unspecified complications Anxiety and depression ([facility]) Gastro-esophageal reflux disease without esophagitis Edema, unspecified Edema Diabetic polyneuropathy associated with type 2 diabetes mellitus ([facility]) Chronic obstructive pulmonary disease, unspecified Pulmonary emphysema, unspecified emphysema type (CMS/HCC) Bilateral lower extremity edema Tobacco user Tobacco use disorder Hyperpigmentation of skin Other dyschromia Primary hypertension (CMS/HCC)- Primary Unspecified essential hypertension Diabetic polyneuropathy associated with type 2 diabetes mellitus (CMS/HCC) Pulmonary emphysema, unspecified emphysema type (CMS/HCC) Critical limb ischemia of right lower extremity ([facility]) PAD (peripheral artery disease) ([facility]) Unspecified peripheral vascular disease Gastroesophageal reflux disease, unspecified whether esophagitis present Bilateral lower extremity edema Venous ulcer of right leg ([facility]) Type 2 diabetes mellitus with complication, with long-term current use of insulin ([facility]) Tobacco user Tobacco use disorder Encounter for smoking cessation counseling Kidney stone Calculus of kidney Adrenal mass 1 cm to 4 cm in diameter ([facility]) Radiculopathy, lumbar region Thoracic or lumbosacral neuritis or radiculitis, unspecified Non-seasonal allergic rhinitis, unspecified trigger Type 2 diabetes mellitus with unspecified complications Anxiety and depression ([facility])- Primary Morbid (severe) obesity due to excess calories ([facility]) Body mass index (BMI) 50.0-59.9, adult ([facility]) Malignant neoplasm of cervix uteri, unspecified Diabetic polyneuropathy associated with type 2 diabetes mellitus ([facility]) Chronic diastolic heart failure ([facility]) Chronic diastolic heart failure Primary hypertension ([facility]) Unspecified essential hypertension 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 Gastroesophageal reflux disease, unspecified whether esophagitis present Bilateral lower extremity edema Type 2 diabetes mellitus with complication, with long-term current use of insulin ([facility]) Tobacco user Tobacco use disorder Mixed hyperlipidemia ([facility]) Mixed hyperlipidemia Gout, unspecified cause, unspecified chronicity, unspecified site Vitamin deficiency Unspecified vitamin deficiency Gastro-esophageal reflux disease without esophagitis Edema, unspecified Edema Hyperlipidemia, unspecified ([facility] [place] Encounter for smoking cessation counseling Venous ulcer of right leg ([facility] [place]) Antibiotic-induced yeast infection Chronic obstructive pulmonary disease, unspecified documented in this encounter [facility] HealthcareEvaluation note* Diagnosis Obstructive sleep apnea- Primary Obstructive sleep apnea (adult) (pediatric) Pulmonary emphysema, unspecified emphysema type ([facility]) Primary hypertension ([facility]) Unspecified essential hypertension Type 2 diabetes mellitus with complication, with long-term current use of insulin ([facility] Anxiety and depression ([facility]) Bilateral lower extremity edema Pulmonary emphysema, unspecified emphysema type ([facility])- Primary Primary hypertension ([facility]) Unspecified essential hypertension Class 3 severe obesity with serious comorbidity and body mass index (BMI) of 50.0 to 59.9 in adult, unspecified obesity type Obstructive sleep apnea Obstructive sleep apnea (adult) (pediatric) Pulmonary hypertension ([facility]) Other chronic pulmonary heart diseases Tobacco user Tobacco use disorder Cardiomegaly Primary hypertension ([facility])- Primary Unspecified essential hypertension Gastroesophageal reflux disease, unspecified whether esophagitis present Type 2 diabetes mellitus with complication, with long-term current use of insulin ([facility]) Mixed hyperlipidemia ([facility]) Mixed hyperlipidemia Tobacco user Tobacco use disorder Encounter for screening mammogram for malignant neoplasm of breast Chronic obstructive pulmonary disease, unspecified Other specified chronic obstructive pulmonary disease Anxiety and depression ([facility]) Edema, unspecified Edema Hyperlipidemia, unspecified ([facility]) Diabetic polyneuropathy associated with type 2 diabetes mellitus ([facility]) Gout, unspecified cause, unspecified chronicity, unspecified site Non-seasonal allergic rhinitis, unspecified trigger Bilateral lower extremity edema COPD exacerbation (CMS/HCC) Obstructive chronic bronchitis with exacerbation Pulmonary emphysema, unspecified emphysema type (CMS/HCC) Venous insufficiency Unspecified venous (peripheral) insufficiency Candidiasis of breast COPD exacerbation ([facility])- Primary Obstructive chronic bronchitis with exacerbation Pulmonary hypertension ([facility]) Other chronic pulmonary heart diseases Class 3 severe obesity with serious comorbidity and body mass index (BMI) of 50.0 to 59.9 in adult, unspecified obesity type Encounter for subsequent annual wellness visit (AWV) in Medicare patient- Primary Type 2 diabetes mellitus with unspecified complications Pulmonary emphysema, unspecified emphysema type ([facility]) Moderate persistent asthma without complication ([facility]) Primary hypertension ([facility]) Unspecified essential hypertension Type 2 diabetes mellitus with complication, with long-term current use of insulin ([facility]) Class 3 severe obesity with serious comorbidity and body mass index (BMI) of 50.0 to 59.9 in adult, unspecified obesity type Tobacco user Tobacco use disorder Other headache syndrome Malignant neoplasm of cervix uteri, unspecified Other specified disorders of adrenal gland Major depressive disorder, single episode, mild (HCC) ([facility]) Major depressive disorder, single episode, mild 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 exposed Chronic respiratory failure, unspecified whether with hypoxia or hypercapnia Disorder of adrenal gland, unspecified Non-pressure chronic ulcer of other part of right lower leg limited to breakdown of skin ([facility]) Non-recurrent acute suppurative otitis media of left ear without spontaneous rupture of tympanic membrane Primary hypertension ([facility])- Primary Unspecified essential hypertension Insomnia Insomnia, unspecified Type 2 diabetes mellitus with complication, with long-term current use of insulin ([facility]) Non-seasonal allergic rhinitis, unspecified trigger Type 2 diabetes mellitus with unspecified complications Anxiety and depression ([facility]) Gastro-esophageal reflux disease without esophagitis Edema, unspecified Edema Diabetic polyneuropathy associated with type 2 diabetes mellitus ([facility]) Chronic obstructive pulmonary disease, unspecified Pulmonary emphysema, unspecified emphysema type (CMS/HCC) Bilateral lower extremity edema Tobacco user Tobacco use disorder Hyperpigmentation of skin Other dyschromia Primary hypertension ([facility])- Primary Unspecified essential hypertension Diabetic polyneuropathy associated with type 2 diabetes mellitus ([facility]) Pulmonary emphysema, unspecified emphysema type ([facility]) Critical limb ischemia of right lower extremity ([facility]) PAD (peripheral artery disease) ([facility]) Unspecified peripheral vascular disease Gastroesophageal reflux disease, unspecified whether esophagitis present Bilateral lower extremity edema Venous ulcer of right leg ([facility]) Type 2 diabetes mellitus with complication, with long-term current use of insulin ([facility] [facility] Tobacco user Tobacco use disorder Encounter for smoking cessation counseling Kidney stone Calculus of kidney Adrenal mass 1 cm to 4 cm in diameter ([facility]) Radiculopathy, lumbar region Thoracic or lumbosacral neuritis or radiculitis, unspecified Non-seasonal allergic rhinitis, unspecified trigger Type 2 diabetes mellitus with unspecified complications Anxiety and depression ([facility])- Primary Morbid (severe) obesity due to excess calories ([facility]) Body mass index (BMI) 50.0-59.9, adult ([facility]) Malignant neoplasm of cervix uteri, unspecified Diabetic polyneuropathy associated with type 2 diabetes mellitus ([facility]) Chronic diastolic heart failure ([facility]) Chronic diastolic heart failure Primary hypertension ([facility]) Unspecified essential hypertension 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 Gastroesophageal reflux disease, unspecified whether esophagitis present Bilateral lower extremity edema Type 2 diabetes mellitus with complication, with long-term current use of insulin ([facility]) Tobacco user Tobacco use disorder Mixed hyperlipidemia ([facility]) Mixed hyperlipidemia Gout, unspecified cause, unspecified chronicity, unspecified site Vitamin deficiency Unspecified vitamin deficiency Gastro-esophageal reflux disease without esophagitis Edema, unspecified Edema Hyperlipidemia, unspecified ([facility]) Encounter for smoking cessation counseling Venous ulcer of right leg ([facility]) Antibiotic-induced yeast infection Primary hypertension ([facility])- Primary Unspecified essential hypertension Diabetic polyneuropathy associated with type 2 diabetes mellitus ([facility]) Chronic diastolic heart failure ([facility]) Chronic diastolic heart failure Bilateral lower extremity edema Morbid (severe) obesity due to excess calories ([facility]) Type 2 diabetes mellitus with complication, with long-term current use of insulin ([facility]) Anxiety and depression ([facility]) Cigarette nicotine dependence without complication Encounter for screening mammogram for malignant neoplasm of breast Insomnia Insomnia, unspecified Non-seasonal allergic rhinitis, unspecified trigger Type 2 diabetes mellitus with unspecified complications Vitamin D deficiency, unspecified Gastro-esophageal reflux disease without esophagitis PAD (peripheral artery disease) ([facility]) Unspecified peripheral vascular disease Gastroesophageal reflux disease, unspecified whether esophagitis present Venous ulcer of right leg ([facility]) documented in this encounter [facility] [...] to 59.9 in adult, unspecified obesity type ([facility]) Obstructive sleep apnea Obstructive sleep apnea [...] to 59.9 in adult, unspecified obesity type ([facility]) Encounter for subsequent annual wellness visit (AWV) in Medicare patient- Primary Type 2 diabetes mellitus with unspecified complications (HCC) Pulmonary emphysema, unspecified emphysema type (HCC) Moderate persistent asthma without complication (HCC) Primary hypertension Unspecified essential hypertension Type 2 diabetes mellitus with complication, with long-term current use of insulin ([facility]) Class 3 severe obesity with serious comorbidity and body mass index (BMI) of 50.0 to 59.9 in adult, unspecified obesity type ([facility]) Tobacco user Tobacco use disorder Other headache syndrome Malignant neoplasm of cervix uteri, unspecified ([facility]) Other specified disorders of adrenal gland ([facility]) Major depressive disorder, single episode, mild Major depressive disorder, single episode, mild 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 exposed ([facility]) Chronic respiratory failure, unspecified whether with hypoxia or hypercapnia ([facility]) Disorder of adrenal gland, unspecified ([facility]) Non-pressure chronic ulcer of other part of right lower leg limited to breakdown of skin ([facility]) Non-recurrent acute suppurative otitis media of left ear without spontaneous rupture of tympanic membrane Primary hypertension- Primary Unspecified essential hypertension Insomnia Insomnia, unspecified Type 2 diabetes mellitus with complication, with long-term current use of insulin ([facility]) Non-seasonal allergic rhinitis, unspecified trigger Type 2 diabetes mellitus with unspecified complications ([facility]) Anxiety and depression Gastro-esophageal reflux disease without esophagitis Edema, unspecified Edema Diabetic polyneuropathy associated with type 2 diabetes mellitus ([facility]) Chronic obstructive pulmonary disease, unspecified ([facility]) Pulmonary emphysema, unspecified emphysema type ([facility]) Bilateral lower extremity edema Tobacco user Tobacco use disorder Hyperpigmentation of skin Other dyschromia Primary hypertension- Primary Unspecified essential hypertension Diabetic polyneuropathy associated with type 2 diabetes mellitus ([facility]) Pulmonary emphysema, unspecified emphysema type ([facility]) Critical limb ischemia of right lower extremity ([facility]) PAD (peripheral artery disease) Unspecified peripheral vascular disease Gastroesophageal reflux disease, unspecified whether esophagitis present Bilateral lower extremity edema Venous ulcer of right leg ([facility]) Type 2 diabetes mellitus with complication, with long-term current use of insulin ([facility]) Tobacco user Tobacco use disorder Encounter for smoking cessation counseling Kidney stone Calculus of kidney Adrenal mass 1 cm to 4 cm in diameter ([facility]) Radiculopathy, lumbar region Thoracic or lumbosacral neuritis or radiculitis, unspecified Non-seasonal allergic rhinitis, unspecified trigger Type 2 diabetes mellitus with unspecified complications ([facility]) Anxiety and depression- Primary Morbid (severe) obesity due to excess calories ([facility]) Body mass index (BMI) 50.0-59.9, adult ([facility]) Malignant neoplasm of cervix uteri, unspecified (HCC) [...] Morbid (severe) obesity due to excess calories ([facility]) Type 2 diabetes mellitus with complication, with long-term current use of insulin ([facility]) Anxiety and depression Cigarette nicotine dependence without [...] of left lower extremity- Primary COPD exacerbation ([facility]) Obstructive chronic bronchitis with exacerbation Primary hypertension Unspecified essential hypertension Pulmonary hypertension (HCC) Other chronic pulmonary heart diseases Morbid (severe) obesity due to excess calories ([facility]) Type 2 diabetes mellitus with complication, with long-term current use of insulin ([facility]) Anxiety and depression Fever, unspecified fever cause Hyperlipidemia, unspecified Tobacco user Tobacco use disorder Encounter for smoking cessation counseling documented in this encounter [facility] HealthcareEvaluation note* Diagnosis Obstructive sleep apnea- Primary Obstructive sleep apnea (adult) (pediatric) Pulmonary emphysema, unspecified emphysema type ([facility]) Primary hypertension ([facility]) Unspecified essential hypertension Type 2 diabetes mellitus with complication, with long-term current use of insulin ([facility]) Anxiety and depression ([facility]) Bilateral lower extremity edema Pulmonary emphysema, unspecified emphysema type ([facility])- Primary Primary hypertension ([facility]) Unspecified essential hypertension Class 3 severe obesity with serious comorbidity and body mass index (BMI) of 50.0 to 59.9 in adult, unspecified obesity type Obstructive sleep apnea Obstructive sleep apnea (adult) (pediatric) Pulmonary hypertension ([facility]) Other chronic pulmonary heart diseases Tobacco user Tobacco use disorder Cardiomegaly Primary hypertension ([facility])- Primary Unspecified essential hypertension Gastroesophageal reflux disease, unspecified whether esophagitis present Type 2 diabetes mellitus with complication, with long-term current use of insulin ([facility]) Mixed hyperlipidemia ([facility]) Mixed hyperlipidemia Tobacco user Tobacco use disorder Encounter for screening mammogram for malignant neoplasm of breast Chronic obstructive pulmonary disease, unspecified Other specified chronic obstructive pulmonary disease Anxiety and depression ([facility]) Edema, unspecified Edema Hyperlipidemia, unspecified ([facility]) Diabetic polyneuropathy associated with type 2 diabetes mellitus ([facility]) Gout, unspecified cause, unspecified chronicity, unspecified site Non-seasonal allergic rhinitis, unspecified trigger Bilateral lower extremity edema COPD exacerbation ([facility]) Obstructive chronic bronchitis with exacerbation Pulmonary emphysema, unspecified emphysema type ([facility]) Venous insufficiency Unspecified venous (peripheral) insufficiency Candidiasis of breast COPD exacerbation ([facility])- Primary Obstructive chronic bronchitis with exacerbation Pulmonary hypertension ([facility]) Other chronic pulmonary heart diseases Class 3 severe obesity with serious comorbidity and body mass index (BMI) of 50.0 to 59.9 in adult, unspecified obesity type Encounter for subsequent annual wellness visit (AWV) in Medicare patient- Primary Type 2 diabetes mellitus with unspecified complications Pulmonary emphysema, unspecified emphysema type ([facility]) Moderate persistent asthma without complication ([facility]) Primary hypertension ([facility]) Unspecified essential hypertension Type 2 diabetes mellitus with complication, with long-term current use of insulin ([facility]) Class 3 severe obesity with serious comorbidity and body mass index (BMI) of 50.0 to 59.9 in adult, unspecified obesity type Tobacco user Tobacco use disorder Other headache syndrome Malignant neoplasm of cervix uteri, unspecified Other specified disorders of adrenal gland Major depressive disorder, single episode, mild (HCC) ([facility]) Major depressive disorder, single episode, mild 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 exposed Chronic respiratory failure, unspecified whether with hypoxia or hypercapnia Disorder of adrenal gland, unspecified Non-pressure chronic ulcer of other part of right lower leg limited to breakdown of skin ([facility]) Non-recurrent acute suppurative otitis media of left ear without spontaneous rupture of tympanic membrane Primary hypertension ([facility])- Primary Unspecified essential hypertension Insomnia Insomnia, unspecified Type 2 diabetes mellitus with complication, with long-term current use of insulin ([facility]) Non-seasonal allergic rhinitis, unspecified trigger Type 2 diabetes mellitus with unspecified complications Anxiety and depression ([facility]) Gastro-esophageal reflux disease without esophagitis Edema, unspecified Edema Diabetic polyneuropathy associated with type 2 diabetes mellitus ([facility]) Chronic obstructive pulmonary disease, unspecified Pulmonary emphysema, unspecified emphysema type ([facility]) Bilateral lower extremity edema Tobacco user Tobacco use disorder Hyperpigmentation of skin Other dyschromia Primary hypertension ([facility])- Primary Unspecified essential hypertension Diabetic polyneuropathy associated with type 2 diabetes mellitus ([facility]) Pulmonary emphysema, unspecified emphysema type ([facility]) Critical limb ischemia of right lower extremity ([facility]) PAD (peripheral artery disease) ([facility]) Unspecified peripheral vascular disease Gastroesophageal reflux disease, unspecified whether esophagitis present Bilateral lower extremity edema Venous ulcer of right leg ([facility]) Type 2 diabetes mellitus with complication, with long-term current use of insulin ([facility]) Tobacco user Tobacco use disorder Encounter for smoking cessation counseling Kidney stone Calculus of kidney Adrenal mass 1 cm to 4 cm in diameter ([facility]) Radiculopathy, lumbar region Thoracic or lumbosacral neuritis or radiculitis, unspecified Non-seasonal allergic rhinitis, unspecified trigger Type 2 diabetes mellitus with unspecified complications Anxiety and depression ([facility])- Primary Morbid (severe) obesity due to excess calories ([facility]) Body mass index (BMI) 50.0-59.9, adult ([facility]) Malignant neoplasm of cervix uteri, unspecified Diabetic polyneuropathy associated with type 2 diabetes mellitus ([facility]) Chronic diastolic heart failure ([facility]) Chronic diastolic heart failure Primary hypertension ([facility]) Unspecified essential hypertension 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 Gastroesophageal reflux disease, unspecified whether esophagitis present Bilateral lower extremity edema Type 2 diabetes mellitus with complication, with long-term current use of insulin ([facility]) Tobacco user Tobacco use disorder Mixed hyperlipidemia ([facility]) Mixed hyperlipidemia Gout, unspecified cause, unspecified chronicity, unspecified site Vitamin deficiency Unspecified vitamin deficiency Gastro-esophageal reflux disease without esophagitis Edema, unspecified Edema Hyperlipidemia, unspecified ([facility]) Encounter for smoking cessation counseling Venous ulcer of right leg ([facility]) Antibiotic-induced yeast infection Primary hypertension ([facility])- Primary Unspecified essential hypertension Diabetic polyneuropathy associated with type 2 diabetes mellitus ([facility]) Chronic diastolic heart failure ([facility]) Chronic diastolic heart failure Bilateral lower extremity edema Morbid (severe) obesity due to excess calories ([facility]) Type 2 diabetes mellitus with complication, with long-term current use of insulin ([facility]) Anxiety and depression ([facility]) Cigarette nicotine dependence without complication Encounter for screening mammogram for malignant neoplasm of breast Insomnia Insomnia, unspecified Non-seasonal allergic rhinitis, unspecified trigger Type 2 diabetes mellitus with unspecified complications Vitamin D deficiency, unspecified Gastro-esophageal reflux disease without esophagitis PAD (peripheral artery disease) ([facility]) Unspecified peripheral vascular disease Gastroesophageal reflux disease, unspecified whether esophagitis present Venous ulcer of right leg ([facility]) Cellulitis of left lower extremity- Primary COPD exacerbation ([facility]) Obstructive chronic bronchitis with exacerbation Primary hypertension ([facility]) Unspecified essential hypertension Pulmonary hypertension ([facility]) Other chronic pulmonary heart diseases Morbid (severe) obesity due to excess calories ([facility]) Type 2 diabetes mellitus with complication, with long-term current use of insulin ([facility]) Anxiety and depression ([facility]) Fever, unspecified fever cause documented in this encounter [facility] HealthcareEvaluation note* Diagnosis Obstructive sleep apnea- Primary Obstructive sleep apnea (adult) (pediatric) Pulmonary emphysema, unspecified emphysema type (HCC) Primary hypertension Unspecified essential hypertension Type 2 diabetes mellitus with complication, with long-term current use of insulin ([facility]) Anxiety and depression Bilateral lower extremity edema Pulmonary emphysema, unspecified emphysema type (HCC)- Primary Primary hypertension Unspecified essential hypertension Class 3 severe obesity with serious comorbidity and body mass index (BMI) of 50.0 to 59.9 in adult, unspecified obesity type ([facility]) Obstructive sleep apnea Obstructive sleep apnea [...] polyneuropathy associated with type 2 diabetes mellitus ([facility]) Gout, unspecified cause, unspecified chronicity, unspecified site Non-seasonal allergic rhinitis, unspecified trigger Bilateral lower extremity edema COPD exacerbation (HCC) Obstructive chronic bronchitis with exacerbation Pulmonary emphysema, unspecified emphysema type (HCC) Venous insufficiency Unspecified venous (peripheral) insufficiency Candidiasis of breast COPD exacerbation (HCC)- Primary Obstructive chronic bronchitis with exacerbation Pulmonary hypertension ([facility]) Other chronic pulmonary heart diseases Class 3 severe obesity with serious comorbidity and body mass index (BMI) of 50.0 to 59.9 in adult, unspecified obesity type ([facility]) Encounter for subsequent annual wellness visit (AWV) in Medicare patient- Primary Type 2 diabetes mellitus with unspecified complications ([facility]) Pulmonary emphysema, unspecified emphysema type ([facility]) Moderate persistent asthma without complication ([facility]) Primary hypertension Unspecified essential hypertension Type 2 diabetes mellitus with complication, with long-term current use of insulin ([facility]) Class 3 severe obesity with serious comorbidity and body mass index (BMI) of 50.0 to 59.9 in adult, unspecified obesity type ([facility]) Tobacco user Tobacco use disorder Other headache syndrome Malignant neoplasm of cervix uteri, unspecified (HCC) Other specified disorders of adrenal gland ([facility]) Major depressive disorder, single episode, mild Major depressive disorder, single episode, mild 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 exposed ([facility]) Chronic respiratory failure, unspecified whether with [...] Critical limb ischemia of right lower extremity ([facility]) PAD (peripheral artery disease) Unspecified peripheral vascular disease Gastroesophageal reflux disease, unspecified whether esophagitis present Bilateral lower extremity edema Venous ulcer of right leg (HCC) Type 2 diabetes mellitus with complication, with long-term current use of insulin ([facility]) Tobacco user Tobacco use disorder Encounter for smoking cessation counseling Kidney stone Calculus of kidney Adrenal mass 1 cm to 4 cm in diameter ([facility]) Radiculopathy, lumbar region Thoracic or lumbosacral neuritis or radiculitis, unspecified Non-seasonal allergic rhinitis, unspecified trigger Type 2 diabetes mellitus with unspecified complications ([facility]) Anxiety and depression- Primary Morbid (severe) obesity due to excess calories ([facility]) Body mass index (BMI) 50.0-59.9, adult ([facility]) Malignant neoplasm of cervix uteri, unspecified ([facility]) Diabetic polyneuropathy associated with type 2 diabetes mellitus ([facility]) Chronic diastolic heart failure (HCC) Chronic diastolic heart failure Primary hypertension Unspecified essential hypertension 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 ([facility]) Gastroesophageal reflux disease, unspecified whether esophagitis present Bilateral lower extremity edema Type 2 diabetes mellitus with complication, with long-term current use of insulin ([facility]) Tobacco user Tobacco use disorder Mixed [...] Morbid (severe) obesity due to excess calories ([facility]) Type 2 diabetes mellitus with complication, with long-term current use of insulin ([facility]) Anxiety and depression Cigarette nicotine dependence without [...] Morbid (severe) obesity due to excess calories ([facility]) Type 2 diabetes mellitus with complication, [...] Morbid (severe) obesity due to excess calories ([facility]) Type 2 diabetes mellitus with hyperglycemia, with long-term current use of insulin (HCC) documented in this encounter [facility] HealthcareEvaluation note* Diagnosis Obstructive sleep apnea- [...] to 59.9 in adult, unspecified obesity type ([facility]) Obstructive sleep apnea Obstructive sleep apnea [...] to 59.9 in adult, unspecified obesity type ([facility]) Encounter for subsequent annual wellness visit (AWV) in Medicare patient- Primary Type 2 diabetes mellitus with unspecified complications (HCC) Pulmonary emphysema, unspecified emphysema type ([facility]) Moderate persistent asthma without complication (HCC) Primary hypertension Unspecified essential hypertension Type 2 diabetes mellitus with complication, with long-term current use of insulin ([facility]) Class 3 severe obesity with serious comorbidity and body mass index (BMI) of 50.0 to 59.9 in adult, unspecified obesity type ([facility]) Tobacco user Tobacco use disorder Other headache syndrome Malignant neoplasm of cervix uteri, unspecified (HCC) Other specified disorders of adrenal gland (HCC) Major depressive disorder, single episode, mild Major depressive disorder, single episode, mild 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 exposed ([facility]) Chronic respiratory failure, unspecified whether with [...] Critical limb ischemia of right lower extremity ([facility]) PAD (peripheral artery disease) Unspecified peripheral vascular disease Gastroesophageal reflux disease, unspecified whether esophagitis present Bilateral lower extremity edema Venous ulcer of right leg (HCC) Type 2 diabetes mellitus with complication, with long-term current use of insulin (HCC) Tobacco user Tobacco use disorder Encounter for smoking cessation counseling Kidney stone Calculus of kidney Adrenal mass 1 cm to 4 cm in diameter ([facility]) Radiculopathy, lumbar region Thoracic or lumbosacral neuritis or radiculitis, unspecified Non-seasonal allergic rhinitis, unspecified trigger Type 2 diabetes mellitus with unspecified complications ([facility]) Anxiety and depression- Primary Morbid (severe) obesity due to excess calories ([facility]) Body mass index (BMI) 50.0-59.9, adult ([facility]) Malignant neoplasm of cervix uteri, unspecified ([facility]) Diabetic polyneuropathy associated with type 2 diabetes mellitus (HCC) Chronic diastolic heart failure (HCC) Chronic diastolic heart failure Primary hypertension Unspecified essential hypertension 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 ([facility]) Gastroesophageal reflux disease, unspecified whether esophagitis present Bilateral lower extremity edema Type 2 diabetes mellitus with complication, with long-term current use of insulin ([facility]) Tobacco user Tobacco use disorder Mixed [...] Morbid (severe) obesity due to excess calories ([facility]) Type 2 diabetes mellitus with complication, with long-term current use of insulin ([facility]) Anxiety and depression Cigarette nicotine dependence without [...] (severe) obesity due to excess calories ([facility]) Type 2 diabetes mellitus with complication, with long-term current use of insulin ([facility]) Anxiety and depression Fever, unspecified fever cause Encounter for subsequent annual wellness visit (AWV) in Medicare patient- Primary Mixed hyperlipidemia Mixed hyperlipidemia Type 2 diabetes mellitus with complication, with long-term current use of insulin ([facility]) Bilateral lower extremity edema Gastro-esophageal reflux disease without esophagitis Chronic diastolic heart failure (HCC) Chronic diastolic heart failure Primary hypertension Unspecified essential hypertension Pulmonary hypertension (HCC) Other chronic pulmonary heart diseases Diabetic polyneuropathy associated with type 2 diabetes mellitus ([facility]) Pulmonary emphysema, unspecified emphysema type ([facility]) Moderate persistent asthma without complication ([facility]) Insomnia Insomnia, unspecified Non-seasonal allergic rhinitis, unspecified trigger Type 2 diabetes mellitus with unspecified complications ([facility]) Anxiety and depression Antibiotic-induced yeast infection Chronic obstructive pulmonary disease, unspecified ([facility]) Hyperlipidemia, unspecified Vaginal yeast infection Candidiasis of vulva and vagina Morbid (severe) obesity due to excess calories ([facility]) Encounter for dietary consultation- Primary Type 2 diabetes mellitus with hyperglycemia, with long-term current use of insulin ([facility]) Vitamin D deficiency Primary hypertension Unspecified essential hypertension Insulin long-term use ([facility]) Encounter for long-term (current) use of insulin Hyperlipemia, mixed Mixed hyperlipidemia Microalbuminuria Proteinuria Class 3 severe obesity due to excess calories with serious comorbidity and body mass index (BMI) of 50.0 to 59.9 in adult ([facility]) documented in this encounter [facility] Diagnosis Obstructive sleep apnea- Primary Obstructive sleep apnea (adult) (pediatric) Pulmonary emphysema, unspecified emphysema type ([facility]) Primary hypertension Unspecified essential hypertension Type 2 diabetes mellitus with complication, with long-term current use of insulin ([facility]) Anxiety and depression Bilateral lower extremity edema Pulmonary emphysema, unspecified emphysema type (HCC)- Primary Primary hypertension Unspecified essential hypertension Class 3 severe obesity with serious comorbidity and body mass index (BMI) of 50.0 to 59.9 in adult, unspecified obesity type ([facility]) Obstructive sleep apnea Obstructive sleep apnea (adult) [...] to 59.9 in adult, unspecified obesity type ([facility]) Encounter for subsequent annual wellness visit (AWV) [...] to 59.9 in adult, unspecified obesity type ([facility]) Tobacco user Tobacco use disorder Other headache [...] complication, with long-term current use of insulin ([facility]) Non-seasonal allergic rhinitis, unspecified trigger Type 2 diabetes mellitus with unspecified complications (HCC) Anxiety and depression Gastro-esophageal reflux disease without esophagitis Edema, unspecified Edema Diabetic polyneuropathy associated with type 2 diabetes mellitus ([facility]) Chronic obstructive pulmonary disease, unspecified (HCC) Pulmonary emphysema, unspecified emphysema type (HCC) Bilateral lower extremity edema Tobacco user Tobacco use disorder Hyperpigmentation of skin Other dyschromia Primary hypertension- Primary Unspecified essential hypertension Diabetic polyneuropathy associated with type 2 diabetes mellitus ([facility]) Pulmonary emphysema, unspecified emphysema type ([facility]) Critical limb ischemia of right lower extremity ([facility]) PAD (peripheral artery disease) Unspecified peripheral vascular disease Gastroesophageal reflux disease, unspecified whether esophagitis present Bilateral lower extremity edema Venous ulcer of right leg ([facility]) Type 2 diabetes mellitus with complication, with long-term current use of insulin ([facility]) Tobacco user Tobacco use disorder Encounter for smoking cessation counseling Kidney stone Calculus of kidney Adrenal mass 1 cm to 4 cm in diameter ([facility]) Radiculopathy, lumbar region Thoracic or lumbosacral neuritis or radiculitis, unspecified Non-seasonal allergic rhinitis, unspecified trigger Type 2 diabetes mellitus with unspecified complications ([facility]) Anxiety and depression- Primary Morbid (severe) obesity due to excess calories ([facility]) Body mass index (BMI) 50.0-59.9, adult ([facility]) Malignant neoplasm of cervix uteri, unspecified ([facility]) Diabetic polyneuropathy associated with type 2 diabetes mellitus ([facility]) Chronic diastolic heart failure (HCC) Chronic diastolic heart failure Primary hypertension Unspecified essential hypertension 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 ([facility]) Gastroesophageal reflux disease, unspecified whether esophagitis present Bilateral lower extremity edema Type 2 diabetes mellitus with complication, with long-term current use of insulin ([facility]) Tobacco user Tobacco use disorder Mixed hyperlipidemia Mixed hyperlipidemia Gout, unspecified cause, unspecified chronicity, unspecified site Vitamin deficiency Unspecified vitamin deficiency Gastro-esophageal reflux disease without esophagitis Edema, unspecified Edema Hyperlipidemia, unspecified Encounter for smoking cessation counseling Venous ulcer of right leg ([facility]) Antibiotic-induced yeast infection Primary hypertension- Primary Unspecified essential hypertension Diabetic polyneuropathy associated with type 2 diabetes mellitus (HCC) Chronic diastolic heart failure (HCC) Chronic diastolic heart failure Bilateral lower extremity edema Morbid (severe) obesity due to excess calories ([facility]) Type 2 diabetes mellitus with complication, [...] Morbid (severe) obesity due to excess calories ([facility]) Type 2 diabetes mellitus with complication, [...] Morbid (severe) obesity due to excess calories ([facility]) Tobacco user Tobacco use disorder Encounter for smoking cessation counseling documented in this encounter [facility] HealthcareHistory general Narrative - Reported* Type Description [...] History sepsis 2010 Hospitalization History SEE ABOVE [employer] Other Hospital course Narrative No data available for this section [facility] progress note No data available for this section [facility] reason for referral (narrative) , Referral to Dr. 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 Expl anation Advance Directives and Living Will Power of Gas Engine Operator Generators Summary Purpose Family History No Family History Records FoundNo Family History Records FoundNo Family History Records FoundNo Family History Records Found No data available for this section No Family History Records FoundNo Family History Records FoundNo Family History Records Found Additional Source Comments INFORMATION SOURCE (unrecogn ized section and content) DATE CREATED AUTHOR 10/30/2019 [facility] DATE CREATED AUTHOR AUTHOR'S ORGANIZ ATION 09/15/2020 [facility] DATE CREATED AUTHOR AUTHOR'S ORGANIZ ATION 12/19/2022 [facility] DATE CREATED AUTHOR AUTHOR'S ORGANIZ ATION 06/03/2024 [facility] DATE CREATED AUTHOR AUTHOR'S ORGANIZ ATION 01/30/2025 [facility] EPIC DATE CREATED AUTHOR AUTHOR'S ORGANIZ ATION 02/06/2025 [facility] DATE CREATED AUTHOR AUTHOR'S ORGANIZ ATION 03/13/2025 [facility] Care Team (unrecognized sect ion and content) [employer] Specialist Relationship Specialty Start Date End Date Ty Amin MD PCP - General Family Medicine 01/05/23 [employer] Farm[employer] Specialist Relationship Specialty Start Date End Date Ty Amin MD PCP - General Family Medicine 01/05/23 [employer] Farm[employer] Specialist Relationship Specialty Start Date End Date Ty Amin MD [address] [place] [phone] PCP - General Family Medicine 09/20/23 Mckayla Blas NP [address] [place] [address] PCP - [facility] 09/07/23 09/05/90 Mckayla Blas NP [address] [place] [address] Nurse Practitioner Family Medicine 09/20/23 [employer] Farm[employer] Specialist Relationship Specialty Start Date End Date Ty Amin MD [address] [place] [address] PCP - General Family Medicine 09/20/23 Mckayla Blas NP [address] [place] [address] [facility] 09/07/23 09/05/90 Mckayla Blas NP [address] [place] [address] Nurse Practitioner Family Medicine 09/20/23 [employer] Specialist Relationship Specialty Start Date End Date Ty Amin MD [address] [place] [address] PCP - General Family Medicine 09/20/23 Mckayla Blas NP [address] [place] [address] [facility] 09/07/23 09/05/90 Mckayla Blas NP [address] [place] [address] Nurse Practitioner Family Medicine 09/20/23 [employer] Specialist Relationship Specialty Start Date End Date Ty Amin MD [address] [place] [address] PCP - General Family Medicine 09/20/23 Mckayla Blas NP [address] [place] [address] PCP - [facility] 09/07/23 09/05/90 Mckayla Blas NP [address] [place] [address] Nurse Practitioner Family Medicine 09/20/23 [employer] Farming Specialist Relationship Specialty Start Date End Date Ty Amin MD [address] [place] [address] PCP - General Family Medicine 09/20/23 Mckayla Blas NP [address] [place] [address] PCP - [facility] 09/07/23 09/05/90 Mckayla Blas NP [address] [place] [address] Nurse Practitioner Family Medicine 09/20/23 [employer] Farming Specialist Relationship Specialty Start Date End Date Ty Amin MD [address] [place] [address] PCP - General Family Medicine 09/20/23 Mckayla Blas NP [address] [place] [address] PCP - [facility] 09/07/23 09/05/90 Mckayla Blas NP [address] [place] [address] Nurse Practitioner Family Medicine 09/20/23 [employer] Farming Specialist Relationship Specialty Start Date End Date Ty Amin MD [address] [place] [address] PCP - General Family Medicine 09/20/23 Mckayla Blas NP [address] [place] [address] [facility] 09/07/23 09/05/90 Mckayla Blas NP [address] [place] [address] Nurse Practitioner Family Medicine 09/20/23 Precision Farming Specialist Relationship Specialty Start Date End Date Ty Amin MD [address] [place] [address] PCP - General Family Medicine 09/20/23 Mckayla Blas NP [address] [place] [address] [facility] 09/07/23 09/05/90 Mckayla Blas NP [address] [place] [address] Nurse Practitioner Family Medicine 09/20/23 Precision Farming Specialist Relationship Specialty Start Date End Date Ty Amin MD [address] [place] [address] PCP - General Family Medicine 09/20/23 Mckayla Blas NP [address] [place] [address] PCP - [facility] 09/07/23 09/05/90 Mckayla Blas NP [address] [place] [address] Nurse Practitioner Family Medicine 09/20/23 Precision Farming Specialist Relationship Specialty Start Date End Date Ty Amin MD [address] [place] [address] PCP - General Family Medicine 09/20/23 Mckayla Blas NP [address] [place] [address] PCP - [facility] 09/07/23 09/05/90 Mckayla Blas NP [address] [place] [address] Nurse Practitioner Family Medicine 09/20/23 Precision Farming Specialist Relationship Specialty Start Date End Date Ty Amin MD [address] [place] [address] PCP - General Family Medicine 09/20/23 Mckayla Blas NP [address] [place] [address] PCP - [facility] 09/07/23 09/05/90 Mckayla Blas NP [address] [place] [address] Nurse Practitioner Family Medicine 09/20/23 Precision Farming Specialist Relationship Specialty Start Date End Date Ty Amin MD [address] [place] [address] PCP - General Family Medicine 09/20/23 Mckayla Blas NP [address] [place] [address] [facility] 09/07/23 09/05/90 Mckayla Blas NP [address] [place] [address] Nurse Practitioner Family Medicine 09/20/23 Precision Farming Specialist Relationship Specialty Start Date End Date Ty Amin MD [address] [place] [address] PCP - General Family Medicine 09/20/23 Mckayla Blas NP [address] [place] [address] [facility] 09/07/23 09/05/90 Mckayla Blas NP [address] [place] [address] Nurse Practitioner Family Medicine 09/20/23 Precision Farming Specialist Relationship Specialty Start Date End Date Ty Amin MD [address] [place] [address] PCP - General Family Medicine 09/20/23 Mckayla Blas NP [address] [place] [address] PCP - [facility] 09/07/23 09/05/90 Mckayla Blas NP [address] [place] [address] Nurse Practitioner Family Medicine 09/20/23 Precision Farming Specialist Relationship Specialty Start Date End Date Ty Amin MD [address] [place] [address] PCP - General Family Medicine 09/20/23 Mckayla Blas NP [address] [place] [address] PCP - [facility] 09/07/23 09/05/90 Mckayla Blas NP [address] [place] [address] Nurse Practitioner Family Medicine 09/20/23 Precision Farming Specialist Relationship Specialty Start Date End Date Ty Amin MD [address] [place] [address] PCP - General Family Medicine 09/20/23 Mckayla Blas NP [address] [place] [address] PCP - [facility] 09/07/23 09/05/90 Mckayla Blas NP [address] [place] [address] Nurse Practitioner Family Medicine 09/20/23 Precision Farming Specialist Relationship Specialty Start Date End Date Ty Amin MD [address] [place] [address] PCP - General Family Medicine 09/20/23 Mckayla Blas NP [address] [place] [address] [facility] 09/07/23 09/05/90 Mckayla Blas NP [address] [place] [address] Nurse Practitioner Family Medicine 09/20/23 Precision Farming Specialist Relationship Specialty Start Date End Date Ty Amin MD [address] [place] [address] PCP - General Family Medicine 09/20/23 Mckayla Blas NP [address] [place] [address] [facility] 09/07/23 09/05/90 Mckayla Blas NP [address] [place] [address] Nurse Practitioner Family Medicine 09/20/23 Precision Farming Specialist Relationship Specialty Start Date End Date Ty Amin MD [address] [place] [address] PCP - General Family Medicine 09/20/23 Mckayla Blas NP [address] [place] [address] PCP - [facility] 09/07/23 09/05/90 Mckayla Blas NP [address] [place] [address] Nurse Practitioner Family Medicine 09/20/23 Precision Farming Specialist Relationship Specialty Start Date End Date Ty Amin MD [address] [place] [address] PCP - General Family Medicine 09/20/23 Mckayla Blas NP [address] [place] [address] PCP - [facility] 09/07/23 09/05/90 Mckayla Blas NP [address] [place] [address] Nurse Practitioner Family Medicine 09/20/23 Precision Farming Specialist Relationship Specialty Start Date End Date Ty Amin MD [address] [place] [address] PCP - General Family Medicine 09/20/23 Mckayla Blas NP [address] [place] [address] Nurse Practitioner Family Medicine 09/20/23 Precision Farming Specialist Relationship Specialty Start Date End Date Ty Amin MD [address] [place] [address] PCP - General Family Medicine 09/20/23 Mckayla Blas NP [address] [place] [address] Nurse Practitioner Family Medicine 09/20/23 Precision Farming Specialist Relationship Specialty Start Date End Date Ty Amin MD [address] [place] [address] PCP - General Family Medicine 09/20/23 Mckayla Blas NP [address] [place] [address] Nurse Practitioner Family Medicine 09/20/23 Precision Farming Specialist Relationship Specialty Start Date End Date Ty Amin MD [address] [place] [address] PCP - General Family Medicine 09/20/23 Mckayla Blas NP [address] [place] [address] Nurse Practitioner Family Medicine 09/20/23 Precision Farming Specialist Relationship Specialty Start Date End Date Ty Amin MD [address] [place] [address] PCP - General Family Medicine 09/20/23 Mckayla Blas NP [address] [place] [address] Nurse Practitioner Family Medicine 09/20/23 REASON FOR [...] BE BASED ON THE PRIMARY CLINICAL RECORDS. [employer] provides no warranty or guarantee of the accuracy or completeness of information in this document.
== END 2025-03-20 10:01 | disposition home or self-care (01) ==
LOC: WC 03-23 10:08
PROVIDERS: PCP Nurse Practitioner; Visit Provider Physician Assistant
DX: I87.311 Chronic venous hypertension (idiopathic) with ulcer of right lower extremity (principal); L97.812 Non-pressure chronic ulcer of other part of right lower leg with fat layer exposed
CPT/HCPCS: 29581

== ENCOUNTER 2025-03-24 09:36 | Outpatient (OUT) | payer MEDICARE, SELFPAY ==
--- OUTSIDE RECORDS SUMMARY | 2024-12-02 05:30 | XMS_ITS ---
Author Organization The [facility] in [place] Address [address] [place] [address] Care Team Providers Care Mine Utility Operator Name Role Phone Mckayla Blas CNP Primary Care Provider Armando Limon Unavailable [phone] REASON FOR VISIT 1YEAR-COPD Encounters Encounter Location Date Provider Diagnosis Pulmonary Medicine [place] [address] [place] [address] 12/02/2024 Armando Yañez Plan Of Treatment No Information Progress Notes * Mitzi MACIAS LDOB:[birth year] (54 yo F)Acc No.[id number]:12/02/2024 UNLOCKED PROGRESS NOTE Follow Up Patient: Mitzi COX Provider: Tray Yañez DO :1970 A ge:54 Y S ex:Female Date:12/02/2024 Address:[address] [place], [place] [address] Pcp:Mckayla Blas CNP Subjective: * Chief Complaints: * 1 . 1YEAR-COPD. * Medical History: Objective: * Vitals: Assessment: Plan: * Treatment: * * Electronic signature of Radha Yañez DO on 03/24/2025 at 09:39 AM EDT Sign off status: Pending Visit Status: N /S N/C (No Show/No Charge) * Provider: Tray Yañez DO Date: 0 12/02/2024 Generated for Vanessa ocampo/Luis/eTransmitting on: 0 03/24/2025 09:39 AM EDT
--- OUTSIDE RECORDS SUMMARY | 2025-03-24 09:39 | XMS_ITS | Encounter Summary ---
Author Organization [facility] Address [address] [place] [address] Care Team Providers Care Gas Turbine Assembler Name Role Phone Ty Amin MD Primary Care Provider [phone] Mckayla Blas NP Unavailable [phone] Mckayla Blas NP Unavailable [phone] Encounter Details Date Type Department Care [...] Recorded Patient Health Questionnaire-2 Score 1 01/17/2024 [facility] [...] [facility] [address] [place] [address] Rain Souza MD [address] [place] [address] documented as of this encounter Procedures Procedure Name Priority Date/Time Associated Diagnosis Comments MR LUMBAR SPINE WO CON 05/12/2024 2:41 PM EST documented in this encounter Results * MR LUMBAR SPINE WO CON (05/12/2024 2:41 PM EST) Anatomical Region Laterality Modality Other 05/12/2024 2:41 PM EST Narrative 05/12/2024 2:43 PM EST The [address] [address] Magnetic Resonance Report Signed Patient: MITZI MACIAS MR#: [id number] : 1970 Acct:[id number] Age/Sex: 53 / F ADM Date: 05/12/24 Loc: MRI Attending Dr: Angela Chin [employer] Ordering Physician: Angela hCin NP Date of Service: 05/12/24 Procedure(s): MR lumbar spine wo con Accession Number(s): [id number] cc: Mckayla Blas NP; Angela Chin NP [place] [address] Patient Name: MITZI MACIAS MRN: [facility]:[id number] date: 1970 Sex: F Assigned Patient Location: MRI Current Patient Location: CT Accession/Order Number: [id number] Exam Date: 05/12/2024 09:21 Report Date: 05/12/2024 [...] Signed By: 05/12/24 1443 DD/ 40 TD/TT: Management Aide: Procedure Note Radiology, Radiologist, MD - 05/12/2024 [place] [address] Magnetic Resonance Report Signed Patient: MITZI MACIAS LMR#: [id number] : 1970Acct:[id number] Age/Sex: 53 / FADM Date: 05/12/24 Loc: MRI Attending Dr: nAgela Chin [employer] Ordering Physician: Angela Chin NP Date of Service: 05/12/24 Procedure(s): MR lumbar spine wo con Accession Number(s): [id number] cc: Mckayla Blas [employer]; Angela Chin NP The [place] [id number] Patient Name: MITZI MACIAS MRN: [id number] date: 1970 Sex: F Assigned Patient Location: MRI Current Patient Location: CT Accession/Order Number: [id number] Exam Date: 05/12/2024 09:21 Report Date: 05/12/2024 [...] M.D. Signed By:05/12/24 1443 DD/ 144 TD/TT: Management Aide: Generic External Data Provider [facility] Final Result documented in this encounter Visit Diagnoses Not on filedocumented in this encounter Additional Health Concerns Assessment Noted Time PHQ-9 Depression Total Score: 3 01/17/20 24 10:08 AM EDT documented as of this encounter Care Teams Gas Turbine Assembler Relationship Specialty Start Date End Date Ty Amin MD PCP - General Family Medicine 09/20/23 Mckayla Blas NP [address] [place] [address] PCP - [facility] 09/07/23 01/11/25 Mckayla Blas NP Nurse Practitioner Family Medicine 09/20/23 documented as of this encounter
--- OUTSIDE RECORDS SUMMARY | 2025-03-24 09:39 | XMS_ITS | Encounter Summary ---
Author Organization [facility] Address [address] [place] [address] Care Team Providers Care Conference Planning Manager Name Role Phone Ty Amin MD Primary Care Provider [phone] Mckayla Blas MANAGER INTRANET Unavailable [phone] Mckayla Blas NP Unavailable [phone] Encounter Details Date Type Department Care Team (Late st Contact Info) Description 04/14/2024 Orders Only [facility] [address] [place] [address] Mckayla Blas NP [address] [place] [address] Social History Tobacco Use Types Packs/Day Years [...] Patient Health Questionnaire-2 Score 1 01/17/2024 [facility] - Occupational Stress Questionnaire Answer Date Recorded [...] Visit [facility] [address] [place] [address] Rain Souza MD [address] [place] [address] documented as of this encounter Procedures Procedure Name Priority Date/Time Associated Diagnosis Comments XR ANKLE 3+ VIEWS RIGHT Routine 04/14/2024 2:57 PM EDT XR ANKLE 3+ VIEWS RIGHT Routine 04/14/2024 11:20 AM EDT documented in this encounter Results * XR ankle 3+ views right (04/14/2024 2:57 PM EDT) Anatomical Region Laterality Modality Lower Extremities, Ankle Right Radiogr aphic Imaging us Mckayla Blas MANAGER INTRANET IMG XR PROCEDURES Final Result * XR ankle 3+ views right (04/14/2024 11:20 AM EDT) Anatomical Region Laterality Modality Lower Extremities, Ankle Right Radiogr aphic Imaging us Mckayla Blas MANAGER INTRANET IMG XR PROCEDURES Final Result documented in this encounter Visit Diagnoses Not on filedocumented in this encounter Additional Health Concerns Assessment Noted Time PHQ-9 Depression Total Score: 3 01/17/20 10:08 AM EDT documented as of this encounter Care Teams Conference Planning Manager Relationship Specialty Start Date End Date Ty Amin MD PCP - General Family Medicine 09/20/23 Mckayla Blas NP [address] [place] [address] PCP - [facility] 09/07/23 01/11/25 Mckayla Blas NP Nurse Practitioner Family Medicine 09/20/23 documented as of this encounter
--- OUTSIDE RECORDS SUMMARY | 2025-03-24 09:39 | XMS_ITS | Encounter Summary ---
Author Organization [facility] Address [facility] [id number] [address] [place] [address] Care Team Providers Care Television Maintenance Worker Name Role Phone JuanjoseMckayla carcamo Krystal DIRECTOR GRAPHICS-WIRE PHOTO OPERATOR Primary Care Provider Encounter Details Date Type Department Care Team (Late st Contact Info) Description 06/11/2020 Orders Only [facility] [address] [place] [address] External, Scanning Provider Social History Tobacco Use [...] on filedocumented in this encounter Care Teams Television Maintenance Worker Relationship Specialty Start Date End Date Mckayla Blas, DIRECTOR GRAPHICS-WIRE PHOTO OPERATOR [address] [place] [address] PCP - General Nurse Practitioner 09/25/18 documented as of this encounter
--- OUTSIDE RECORDS SUMMARY | 2025-03-24 09:39 | XMS_ITS | Encounter Summary ---
Author Organization [facility] Address [address] [place] [address] Care Team Providers Care Merchandise Collector Name Role Phone Ty Amin MD Primary Care Provider [phone] Ty Amin MD Primary Care Provider [phone] Mckayla Blas KIER HAND Unavailable [phone] Mckayla Blas KIER HAND Unavailable [phone] Encounter Details Date Type Department Care Team (Late st Contact Info) Description 08/31/2023 Clinisync Result Encounter [facility] External Department Unsolicited Andra Alcala PA [address] [place] [address] [address] [place], [place] [id number] Social History Tobacco Use Types Packs/Day Years [...] Recorded Patient Health Questionnaire-2 Score 2 07/10/2023 [facility] - Occupational Stress [...] Endocrinology [address] [place] [address] Rain Souza MD [address] [place] [address] documented as of this encounter Procedures Procedure [...] PM EST 09/10/2023 2:29 PM EST Narrative CLINISYIL - 09/16/2023 1:07 PM EDT us Generic External Data Provider LAB BLOOD ORDERAB LES Final Result Performing Organization Address City/[facility]/ZIP Co de Phone Number [facility] * BLOOD CULTURE 1 (09/10/2023 2:05 PM EST) Pathologist [facility] BLOOD CULTURE 1 Blood Culture 1 NG5D NO GROWTH AT 5 DAYS.^NO GROWTH AT 5 DAYS. [facility] 09/10/2023 2:05 PM EST 09/10/2023 2:28 PM EST Narrative CLINISYIL - 09/16/2023 1:07 PM EDT us Generic External Data Provider LAB BLOOD ORDERAB LES Final Result Performing Organization Address [facility] de Phone Number [facility] * ECG 12-LEAD (08/31/2023 6:08 PM EST) Anatomical Region Laterality Modality Other 08/31/2023 6:08 PM EST Narrative 09/02/2023 7:32 [place] [address] Electrocardiograph Report Signed Patient: MITZI MACIAS MR#: [id number] : 1970 Acct:[id number] Age/Sex: 53 / F ADM Date: 08/31/23 Loc: MS 214-[address]: Jacqueline Becerra D.O. Ordering Physician: Andra Alcala Date of Service: 08/31/23 Procedure(s): ECG 12 lead Accession Number(s): [id number] cc: [facility] Test Date: 2023-08-31 Pat Name: MITZI MACIAS Department: Room: - Gender: Female M60A2 Armor Crewman: : 1970 Requested By: MCKAYLA BLAS Order Number: [id number] Reading MD: LAURI DIOR Measurements Intervals [place] Rate: 102 P: 67 CT: 144 QRS: 52 QRSD: 72 T: 49 QT: 326 QTc: 385 Interpretive Statements 1120 Sinus tachycardia 4068 Nonspecific Twave abnormality 8102 Low QRS voltage in chest leads 9140 abnormal rhythm ECG Compared to ECG 12/04/2022 21:27:48 Electronically Signed On 09-02-2023 7:31:43 EST by LAURI DIOR Dictated By: Lauri Dior D.O. Signed By: 09/02/23731 DD/ 07 TD/TT: Literacy Teacher: Procedure Note Radiology, Radiologist, MD - 09/02/2023 [place] [address] Electrocardiograph Report Signed Patient: MITZI MACIAS LMR#: [id number] : 1970Acct:[id number] Age/Sex: 53 / FADM Date: 08/31/23 Loc: MS 214-[address]: Jacqueline Becerra D.O. Ordering Physician: Andra Alcala Date of Service: 08/31/23 Procedure(s): ECG 12 lead Accession Number(s): [id number] cc: [facility] Test Date: 2023-08-31 Pat Name: MITZI MACIAS Department: Room: - Gender: Female M60A2 Armor Crewman: : 1970 Requested By: MCKAYLA BLAS Order Number: [id number] Reading MD: LAURI DIOR Measurements Intervals [place] Rate: 102 P: 67 CT: 144 QRS: 52 QRSD: 72 T: 49 QT: 326 QTc: 385 Interpretive Statements 1120 Sinus tachycardia 4068 Nonspecific Twave abnormality 8102 Low QRS voltage in chest leads 9140 abnormal rhythm ECG Compared to ECG 12/04/2022 21:27:48 Electronically Signed On 09-02-2023 7:31:43 EST by LAURI DIOR Dictated By: Lauri Dior D.O. Signed By:09/02/23731 DD/ 07 TD/TT: Literacy Teacher: Andra [facility] Final Result documented in this encounter Visit Diagnoses Not on filedocumented in this encounter Care Teams Merchandise Collector Relationship Specialty Start Date End Date Ty Amin MD PCP - General Family Medicine 01/05/23 09/19/23 Ty Amin MD PCP - General Family Medicine 09/20/23 Mckayla Blas NP [address] [place] [address] PCP - [facility] 09/07/23 01/11/25 Mckayla Blas NP Nurse Practitioner Family Medicine 09/20/23 documented as of this encounter
--- OUTSIDE RECORDS SUMMARY | 2025-03-24 09:39 | XMS_ITS | Encounter Summary ---
Author Organization [facility] Address [address] [place] [address] Care Team Providers Care Grading Clerk Name Role Phone Ty Amin MD Primary Care Provider [phone] Mckayla Blas TECHNICAL SUPPORT ASSOCIATE Unavailable [phone] Mckayla Blas NP Unavailable [phone] Encounter Details Date Type Department Care Team (Late st Contact Info) Description 01/07/2025 Abstract [facility] [address] [place] [address] Mckayla Blas NP [address] [facility] [place] [address] Social History Tobacco Use Types Packs/Day Years [...] often do you attend chur ch or taoist services? More than 4 times per year [...] Recorded Patient Health Questionnaire-2 Score 1 01/17/2024 [facility] Occupat ional [...] [facility] [facility] [address] [place] [address] Rain Souza MD [address] [place] [address] documented as of this encounter Visit Diagnoses Not on filedocumented in this encounter Additional Health Concerns Assessment Noted Time PHQ-9 Depression Total Score: 3 01/17/20 24 10:08 AM EDT documented as of this encounter Care Teams Grading Clerk Relationship Specialty Start Date End Date Ty Amin MD PCP - General Family Medicine 09/20/23 Mckayla Blas NP [address] [place] [address] PCP - [facility] 09/07/23 01/11/25 Mckayla Blas NP Nurse Practitioner Family Medicine 09/20/23 documented as of this encounter
--- OUTSIDE RECORDS SUMMARY | 2025-03-24 09:39 | XMS_ITS | Clinical Summary ---
Author Organization [facility] Address [address] [place] [address] Care Team Providers Care Flexographic Press Helper Name Role Phone Ty Amin MD Primary Care Provider [phone] Mckayla Blas NP Unavailable [phone] Allergies No known active allergies Medications [...] if needed for wheezing Active HYDROcodone-acet aminophen (Lawtey) 5-325 MG tablet 1 tablet as needed [...] 025 Active ergocalciferol (Vitamin D2) 1.25 MG (79506 UT) capsuleIndicatio ns:Vitamin D deficiency, unspecified Take [...] see if helps Encounter for subsequent [facility] wellness visit (AWV) in Medicare patient [...] can try ubrelvy #3 samples given: Lot [id number], exp 03/2025 Mixed incontinence 11/14/2023 Arthritis 11/14/2023 [...] is necessary they take over prescribing Pancreatitis ([facility]) 09/17/2023 COPD exacerbation 09/17/2023 [...] 11:17 AM EDT): Open wounds refer to [facility] Pulmonary hypertension 09/17/2023 Assessment & Plan (01/26/2025 7:52 AM EDT): Has seen [facility] Cardiology Assessment & Plan (12/09/2024 [...] spiriva Will trial breztri: #2 samples given [id number], exp 03/03, rinse mouth after use Give [...] PM EDT): Current meds: albuterol, duoneb, 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 Assessment & Plan (08/27/2024 7:30 AM EST): Current meds: albuterol, duoneb, 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 Assessment & Plan (01/17/2024 [...] lost script I [facility] [place], [facility] will get another fill on this [...] Care Team Description 03/09/2025 Refill [facility] [address] [facility] [place] [address] Mckayla Blas NP Tobacco user; Encounter for smoking cessation counseling 02/27/2025 Refill [facility] [address] [place] [address] Amber Pinzon LPN Type 2 diabetes mellitus with other circulatory complications (HCC) 02/26/2025 Refill [facility] [address] [place] [address] Rain Odonnell MD Type 2 diabetes mellitus with other circulatory complications (HCC) 02/18/2025 Abstract [facility] [address] [place] [address] Mckayla Blas NP 02/14/2025 Refill [facility] [address] [place] [address] Rain Odonnell MD Type 2 diabetes mellitus with hyperglycemia, with long-term current use of insulin (HCC) 01/29/2025 9:40 AM EDT Office Visit [facility] [place] [address] [place] [address] Rain Odonnell MD Encounter for dietary consultation (Primary Dx); Type 2 diabetes mellitus with hyperglycemia, with long-term current use of insulin (HCC); Vitamin D deficiency; Primary hypertension ; Insulin long-term use (HCC); Hyperlipemia, mixed ; Microalbuminuria; Class 3 severe obesity due to excess calories with serious comorbidity and body mass index (BMI) of 50.0 to 59.9 in adult ([facility]) 01/29/2025 Clinisync Result Encounter [facility] External Department Unsolicited Provider, Generic External Data 01/29/2025 Bamboo flowsheet [facility] [place] [address] [place] [address] Rain Odonnell MD 01/26/2025 6:00 PM EDT Office Visit [facility] [address] [place] [address] Mckayla Blas NP Encounter for subsequent annual [...] Morbid (severe) obesity due to excess calories ([facility]) 01/26/2025 Bamboo flowsheet [facility] [address] [place] [address] Mckayla Blas NP 01/19/2025 Travel 01/16/2025 Refill [facility] [address] [place] [address] Amber Pinzon LPN Vitamin D deficiency, unspecified 01/07/2025 Abstract [facility] [address] [place] [address] Mckayla Blas NP 01/07/2025 Abstract [facility] [address] [facility] [place] [address] Mckayla Blas, SILVANO from Last 3 Months Immunizations Immunization Administration Dates Next Due Influenza Whole 05/02/2013 Influenza, [id number] 04/16/2017,05/10/2016 Influenza, Unspecified 05/18/2023,04/16/2017,08/2015 Influenza, injectable, quadrivalent [...] you attend chur or jehovah's witness services? More than 4 [...] Recorded Patient Health Questionnaire-2 Score 0 01/26/2025 [facility] - Occupational Stress Questionnaire Answer Date [...] any time in the past 12 m [facility], were you homeless or living [...] [facility] [address] [place] [address] Rain Odonnell MD [address] [place] [address] Health Maintenance Due Date Last Done Comments [...] EDT Narrative 01/29/2025 6:40 [place] [address] Cardiology Report Signed Patient: SINA MACIAS MR#: [id number] : 1970 Acct:[id number] Age/Sex: 54 / F ADM Date: 01/29/25 Loc: CARD Attending Dr: AMI ORO APRN Ordering Physician: AMI ORO APRN Date of Service: 01/29/25 Procedure(s): CA echo doppler complete Accession Number(s): [id number] cc: Mckayla Blas NP; AMI ORO APRN Patient Name: SINA MACIAS MR#: [id number] : 1970 Exam Date: 01/29/2025 Ordering Doctor: AMI ORO [facility] ECHOCARDIOGRAM REPORT PROCEDURE: CA ECHO DOPPLER [...] HERRERA Signed By: 01/29/251839 DD/ 39 TD/TT: Trade Marker: Procedure Note Radiology, Radiologist, MD - 01/29/2025 [place] [address] Cardiology Report Signed Patient: SINA MACIAS LMR#: [id number] : 1970Acct:[id number] Age/Sex: 54 / FADM Date: 01/29/25 Loc: CARD Attending Dr: AMI ORO APRN Ordering Physician: AMI ORO APRN Date of Service: 01/29/25 Procedure(s): CA echo doppler complete Accession Number(s): [id number] cc: Mckayla Blas COST ACCOUNTING ANALYST; AMI ORO APRN Patient Name: SINA MACIAS MR#: [id number] : 1970 Exam Date: 01/29/2025 Ordering Doctor: AMI ORO ROUTE VENDING MACHINE SERVICER ECHOCARDIOGRAM REPORT PROCEDURE: CA ECHO DOPPLER COMPLETE [...] BHARAT HERRERA Signed By:01/29/251839 DD/ 39 TD/TT: Trade Marker: us Generic External Data Provider [facility] [...] Region Laterality Modality Head Other Mckayla Blas COST ACCOUNTING ANALYST OPHTH PHOTOGRAPHY Final Result * MM TOMOSYNTHESIS SCREENING BI (12/14/2023 11:21 AM EDT) Anatomical Region Laterality Modality Other 12/14/2023 11:2 1 AM EDT Narrative 12/14/2023 11:22 AM EDT [place] [id number] Mammography Report Signed Patient: SINA MACIAS MR#: [id number] : 1970 Acct:[id number] Age/Sex: 53 / F ADM Date: 12/13/23 Loc: MAMMO Attending Dr: Mckayla Blas NP Ordering Physician: Mckayla Blas NP Results: Date of Service: 12/13/23 Follow Up: Procedure(s): MM tomosynthesis screening BI Accession Number(s): [id number] cc: Mckayla Blas NP Patient Name: SINA MACIAS MR#: [id number] : 1970 Exam Date: 12/13/2023 Ordering Doctor: SAYDA Blsa CNP RADIOLOGY REPORT PROCEDURE: MM TOMOSYNTHESIS SCREENING [...] unknown cancer at age 75. LOCATION: [facility] BREAST COMPOSITION: The breasts are almost [...] Signed By: 12/14/23 1122 DD/ 1121 TD/TT: Trade Marker: Procedure Note Radiology, Radiologist, MD - 12/14/2023 [place] [address] Mammography Report Signed Patient: SINA MACIAS LMR#: [id number] : 1970Acct:[id number] Age/Sex: 53 / FADM Date: 12/13/23 Loc: MAMMO Attending Dr: Mckayla Blas COST ACCOUNTING ANALYST Ordering Physician: Mckayla Blas NPResults: Date of Service: 12/13/23Follow Up: Procedure(s): MM tomosynthesis screening BI Accession Number(s): [id number] cc: Mckayla Blas NP Patient Name: SINA MACIAS MR#: [id number] : 1970 Exam Date: 12/13/2023 Ordering Doctor: SAYDA Blas ROUTE VENDING MACHINE SERVICER RADIOLOGY REPORT PROCEDURE: MM TOMOSYNTHESIS SCREENING BI [...] unknown cancer at age 75. LOCATION: [facility] BREAST COMPOSITION: The breasts are almost [...] M.D. Signed By:12/14/23 1122 DD/ 1121 TD/TT: Trade Marker: Mckayla Blas NP [facility] Final Result from Last 3 Months or Most Recently Relevant to Health Maintenance Insurance [employer] MEDICARE Care Teams Flexographic Press Helper Relationship Specialty Start Date End Date Ty Amin MD PCP - General Family Medicine 09/20/23 Mckayla Blas NP Nurse Practitioner Family Medicine 09/20/23
--- OUTSIDE RECORDS SUMMARY | 2025-03-24 09:39 | XMS_ITS | Encounter Summary ---
Author Organization [facility] Address [id number] [address] [place] [address] Care Team Providers Care Toe Closing Machine Tender Name Role Phone Mckayla Blas APRN-MENTAL RETARDATION NURSE Primary Care Provider Encounter Details Date Type Department Care Team (Late st Contact Info) Description 05/03/2020 [facility]phone [facility] [address] [place] [address] Tramaine Romero DO [address] [place] [address], [address] [id number] Social History Tobacco Use Types Packs/Day Years [...] on filedocumented in this encounter Care Teams Toe Closing Machine Tender Relationship Specialty Start Date End Date Mckayla Blas [place]N-[place] [address] PCP - General Nurse Practitioner 09/25/18 documented as of this encounter
--- OUTSIDE RECORDS SUMMARY | 2025-03-24 09:39 | XMS_ITS | Encounter Summary ---
Author Organization [facility] Address [address] [place] [facility] [place] [address] Care Team Providers Care Branding Specialist Name Role Phone Ty Amin MD Primary Care Provider Mckayla Blas DYNAMITER Unavailable [phone] Mckayla Blas NP Unavailable [phone] Encounter Details Date Type Department Care Team (Late st Contact Info) Description 12/17/2023 Orders Only [facility] [address] [place] [address] Mckayla Blas NP [address] [place] [address] Social History Tobacco Use Types Packs/Day Years [...] often do you attend chur ch or protestant services? 1 to 4 times [...] 11/01/2023 [facility] - [...] [facility] [place] [facility] [address] [place] [address] Rain Souza MD [address] [place] [address] documented as of this encounter Procedures Procedure [...] on filedocumented in this encounter Care Teams Branding Specialist Relationship Specialty Start Date End Date Naderer, Ty, MD PCP - General Family Medicine 09/20/23 Mckayla Blas NP [address] [place] [address] PCP - [facility] 09/07/23 01/11/25 Mckayla Blas NP Nurse Practitioner Family Medicine 09/20/23 documented as of this encounter
--- OUTSIDE RECORDS SUMMARY | 2025-03-24 09:39 | XMS_ITS | Encounter Summary ---
Author Organization [employer] Address [id number] [address] [place] [address] Care Team Providers Care Jewel Grinder Name Role Phone JuanjoseMckayla carcamo Krystal TECHNICAL SUPPORT ENGINEER-HEAT TREAT WORKER Primary Care Provider Encounter Details Date Type Department Care Team (Late st Contact Info) Description 05/31/2020 Orders Only [facility] [address] [place] [address] External, Scanning Provider Social History Tobacco Use [...] ECG ORDERABLES Final Result Performing Organization Address [facility] Co de Phone Number MANUALLY TRANSCRIBED RESULTS [...] ECG ORDERABLES Final Result Performing Organization Address [facility] Co de Phone Number MANUALLY TRANSCRIBED RESULTS * Pulmonary function test (10/24/2018) us Scanning Provider External PFT ORDERABLES Final Result Performing Organization Address [facility] Co de Phone Number MANUALLY TRANSCRIBED RESULTS * Nuc stress Lexiscan/Exercise (12/12/2016) Anatomical Region Laterality Modality Chest N/A Nuclear Medicine us Scanning Provider External CV STRESS ORDERABLES Final Result documented in this encounter Visit Diagnoses Not on filedocumented in this encounter Care Teams Jewel Grinder Relationship Specialty Start Date End Date Mckayla Blas, TECHNICAL SUPPORT ENGINEER-HEAT TREAT WORKER [address] [place] [address] PCP - General Nurse Practitioner 09/25/18 documented as of this encounter
--- OUTSIDE RECORDS SUMMARY | 2025-03-24 09:39 | XMS_ITS | Patient Health Record ---
Author Organization [facility] [place] Address [address] [place] [address] Care Team Providers Care Manager Dialysis Name Role Phone Mckayla Blas CNP Primary Care Provider Unavail able Armando Yañez Unavailable [phone] Allergies No Known Allergies Results Component Value Reference Range Notes PROF CHEM 8 (BAS METB) (Not yet reviewed by provider) Interpretation: Performing Lab: Notes/Report: [facility] , Sodium 142 136-145 mmol/L Potassium 4.2 3.5-5.1 mmol/L Chloride 103 98-107 mmol/L Carbon Dioxide 31.5 21.0-32.0 mmol/L Anion Gap 11.7 Glucose 223 74-106 mg/dL Blood Urea Nitrogen 16.0 7.0-18.0 mg/dL Creatinine 0.82 0.55-1.02 mg/dL Estimated GFR ( Katty >60 >=60 mL/mi n/1.73m 2 Estimated GFR (Non- Kristen >60 >=60 mL/mi n/1.73m 2 BUN Creatinine Ratio 19.5 Calcium 9.0 8.5-10.1 mg/dL Performing Lab: see note ML - The [facility] LB VC SEGMENTAL PRESSURES (Not yet reviewed by provider) Interpretation: Performing Lab: Notes/Report: Source Facility: [facility]-[address] [place] [address] The [place] [id number] Vein Report Signed Patient: MITZI MACIAS MR#: [id number] : 1970 Acct:[id number] Age/Sex: 53 / F ADM Date: 04/24/24 Loc: VC Attending Dr: Rafael Gongora Ordering Physician: Rafael Gongora Date of Service: 04/24/24 Procedure(s): VC SEGMENTAL PRESSURES Accession Number(s): [id number] cc: Mckayla Blas NP; Rafael Gongora The [place] [id number] Patient Name: MITZI MACIAS MRN: [facility]:[id number] date: 1970 Sex: F Assigned Patient Location: VC Current Patient Location: VC Accession/Order Number: [id number] Exam Date: 04/24/2024 10:25 Report Date: 04/24/2024 11:20 At the request of: RAFAEL GONGORA Procedure: VC SEGMENTAL PRESSURES EXAM: VC SEGMENTAL PRESSURES HISTORY: R09.89 COMPARISON: None. FINDINGS: Segmental pressures presented as follows (right, left) in mmHg. Brachial: 169, 166 Upper thigh: Not obtained Lower thigh: 129, 119 Calf: 124, 106 DPA: 108, 105 HONE OPERATOR: 100, 91 1st Toe: 124, 142 [...] Gardner M.D. Signed By: 04/24/24 1123 DD/ 112 TD/TT: Teacher Education Instructor: CBC AUTO DIFF (Not yet revie wed by provider) Interpretation: Performing Lab: Notes/Report: [facility] , White Blood Count 12.8 4.0-11.0 [...] Performing Lab: see note ML - [facility] LB Reason For Referral No Information Medications Medication SIG (Take, Route, Frequency, Duration) Notes Start Date End Date Status Varenicline Tartrate(Continue) 1 MG as directed Orally BID; Duration: 30 days Dispense #1 pack (begin after completing starter pack) 12/05/2023 Active Lantus SoloStar 100 UNIT/ML INJECT 58 UNITS SUBCUTANEOUSLY TWICE A DAY Subcutaneous; Duration: 90 Days Active HYDROcodone-Acetamin ophen 5-325 MG Oral; Duration: 30 Days Active hydrALAZINE HCl 25 MG TAKE 1 TABLET BY MOUTH TWICE A DAY Oral; Duration: 90 Days Active Farxiga 10 MG Oral; Duration: 90 Days Active Amitriptyline HCl 25 MG TAKE 1 TABLET BY MOUTH EVERYDAY AT BEDTIME Oral; Duration: 90 Days Active Albuterol Sulfate HFA 108 (90 Base) MCG/ACT 1 puff as needed Inhalation every 4 hrs Active Potassium Chloride ER 10 MEQ Oral; Duration: 90 Days Active Albuterol Sulfate (2.5 MG/3ML) 0.083% 3 mL as needed Inhalation every 6 hrs 12/05/2023 Active Mounjaro 10 MG/0.5ML Subcutaneous; Duration: 84 Days Active Lisinopril 20 MG Oral; Duration: 90 Days Active Varenicline Tartrate (Starter) 0.5 MG X 11 & 1 MG X 42 as directed Orally BID; Duration: 25 days Dispense #1 pack 12/05/2023 Active [facility] Aspirin Adult Low Dose 81 MG CHEW 1 TABLET (81 MG) DAILY Oral; Duration: 90 Days Active [facility] Allergy Relief(Cetirizine) 10 MG TAKE 1 TABLET (10 MG) BY MOUTH DAILY. Oral; Duration: 90 Days Active Vitamin D (Ergocalciferol) 1.25 MG (73981 UT) Oral; Duration: 90 Days Active Breztri Aerosphere 160-9-4.8 MCG/ACT Inhalation; Duration: 30 Days Active Simvastatin 10 MG Oral; Duration: 90 Days Active Roflumilast 250 MCG Oral; Duration: 28 Days Active Immunizations Vaccine Route Administration Date Status Comme nts Flu, Fluzone (74043) 6-35mo, multi-dose vial (8336-7250) Unknown 05/18/2023 Administered Pneumococcal (Pneumovax 23) Unknown [...] ulcer due to type 2 diabetes mellitus (2347770955212) Type 2 diabetes mellitus with foot ulcer (E11.621) Active confirmed Problem Morbid obesity (disorder) (728333607) Morbid (severe) obesity due to excess calories (E66.01) Active confirmed Problem Venous ulcer of lower extremity due to chronic peripheral venous hypertension (118078925192893) Chronic venous hypertension (idiopathic) with ulcer of left lower extremity (I87.312) Active confirmed Problem Chronic non-pressure ulcer of calf extending to fat level (3667511627384761 1) Non-pressure chronic ulcer of other part of right lower leg with fat layer exposed (L97.812) Active confirmed Problem Chronic ulcer of skin of lower leg (disorder) (9475402650961858 4) Non-pressure chronic ulcer of other part of left lower leg limited to breakdown of skin (L97.821) Active confirmed Problem 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 exposed (L97.822) Active confirmed Problem Long-term current use of inhaled steroid (077512108) terminal gauger (current) use of inhaled steroids (Z79.51) Active confirmed Problem COPD - Chronic obstructive pulmonary disease (60999052) COPD (chronic obstructive pulmonary disease) (J44.9) Active confirmed Problem Hypertension (65857652) HTN (hypertension) (I10) Active confirmed Problem Obstructive sleep apnea syndrome (66339398) DANIEL (obstructive sleep apnea) (G47.33) Active confirmed Problem Lumbar radiculopathy (392244310) Lumbar radiculopathy (M54.16) Active confirmed Problem Diabetes mellitus type 2 (disorder) (85504629) DM2 (diabetes mellitus, type 2) (E11.9) Active confirmed Problem 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) Cigarette nicotine dependence with nicotine-induced disorder (F17.219) Active confirmed Problem Leukocytosis (208472289) Leukocytosis (D72.829) Active confirmed Problem Acute exacerbation of chronic obstructive airways disease (901144064) COPD with exacerbation (J44.1) Active confirmed Problem 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 (I87.313) Active confirmed Problem Non-prs chr ulce r oth prt l low leg limited to brkdwn skin (L97.821) Active confirmed Problem Stasis dermatitis co-occurrent with venous ulcer of right lower extremity due to chronic peripheral venous hypertension (640413347268711) Idiopathic chronic venous hypertension of right lower extremity with ulcer (I87.311) Active confirmed Problem Chronic venous hypertension with ulcer and inflammation involving left side (I87.332) Active confirmed Problem Abnormal arterial blood gas (966844723) Elevated carbon dioxide level (R79.81) Active confirmed Problem Skin ulcer of right knee, limited to breakdown of skin (L97.811) Active confirmed Encounters Encounter Location Date Provider Diagnosis [facility] [address] [place] [address] 04/07/2024 Armando Yañez [facility] [address] [place] [address] 12/02/2024 Armando Yañez Plan Of Treatment Pending Test Test Name Order Date CBC AUTO DIFF 08/27/2024 PROF CHEM 8 (BAS METB) 08/27/2024 VC SEGMENTAL PRESSURES 04/24/2024 Insurance Providers Payer Name Payer Address Payer Phone Subscriber Number Group Number Insured Name Patient Relationship to Insured Coverage Start Date Coverage End Date [facility] PRIMARY MEDICARE [address] [place] [phone] [id number] Mitzi Macias Self - patient is the [...] (hyperlipidemia) E78.5 Elevated carbon dioxide level R79.81 nursing home (current) use of inhaled stero ids Z79.51 Anxiety and depression F41.8 GERD (gastroesophageal reflux disease) K 21.9 Surgical History Surgery Date(Month/Year) hysterectomy cholecystectomy toe surgery Hospitalization History Reason Date(Month/Year) Pneumonia -[facility] 08/31/2023 COPD Exacerbation-[facility] 09/10/2023
--- OUTSIDE RECORDS SUMMARY | 2025-03-24 09:39 | XMS_ITS | Encounter Summary ---
Author Organization [facility] Address [address] [place] [address] Care Team Providers Care Rn Surgical Pcu Name Role Phone Ty Amin MD Primary Care Provider [phone] Mckayla Blas LEASE ANALYST Unavailable [phone] Mckayla Blas NP Unavailable [phone] Encounter Details Date Type Department Care Team (Late st Contact Info) Description 07/14/2024 Orders Only [facility] [address] [place] [address] Mckayla Blas NP [address] [facility] [place] [address] Social History Tobacco Use Types Packs/Day Years [...] Score 1 01/17/2024 [facility] - Occupational Stress Questionnaire Answer Date [...] Visit [facility] [place] [facility] [address] [place] [address] Rain Souza MD [address] [place] [address] documented as of this encounter Procedures Procedure [...] documented as of this encounter Care Teams Rn Surgical Pcu Relationship Specialty Start Date End Date Ty Amin MD PCP - General Family Medicine 09/20/23 Mckayla Blas NP [address] [place] [address] PCP - [facility] 09/07/23 01/11/25 Mckayla Blas NP Nurse Practitioner Family Medicine 09/20/23 documented as of this encounter
--- OUTSIDE RECORDS SUMMARY | 2025-03-24 09:39 | XMS_ITS | Encounter Summary ---
Author Organization [facility] Address [address] [place] [address] Care Team Providers Care Infantry Weapons Crewmember Name Role Phone Ty Amin MD Primary Care Provider [phone] Mckayla Blas NP Unavailable [phone] Mckayla Blas NP Unavailable [phone] Encounter Details Date Type Department Care [...] [facility] [address] [place] [address] Rain Souza MD [address] [place] [address] documented as of this encounter Procedures Procedure Name Priority Date/Time Associated Diagnosis Comments CT ABDOMEN PELVIS W CON 05/12/2024 2:16 PM EST documented in this encounter Results * CT ABDOMEN PELVIS W CON (05/12/2024 2:16 PM EST) Anatomical Region Laterality Modality Other 05/12/2024 2:16 PM EST Narrative 05/12/2024 2:19 PM EST The [address] [address] [address] Scan Report Signed Patient: MITZI MACIAS MR#: [id number] : 1970 Acct:[id number] Age/Sex: 53 / F ADM Date: 05/12/24 Loc: CT Attending Dr: Sarah MAYERS Ordering Physician: Sarah Vega Date of Service: 05/12/24 Procedure(s): CT abdomen pelvis w con Accession Number(s): [id number] cc: Mckayla Blas NP [place] [address], [place] [address] Patient Name: MITZI MACIAS MRN: [facility]:[id number] date: 1970 Sex: F Assigned Patient Location: CT Current Patient Location: Accession/Order Number: [id number] Exam Date: 05/12/2024 11:15 Report Date: 05/12/2024 [...] Signed By: 05/12/24 1419 DD/ 1416 TD/TT: Membership Sales Representative: Procedure Note Radiology, Radiologist, MD - 05/12/2024 [place] [address] [place] Scan Report Signed Patient: MITZI MACIAS LMR#: [id number] : 1970Acct:[id number] Age/Sex: 53 / FADM Date: 05/12/24 Loc: CT Attending Dr: Sarah MAYERS Ordering Physician: Sarah Vega Date of Service: 05/12/24 Procedure(s): CT abdomen pelvis w con Accession Number(s): [id number] cc: Mckayla Blas NP The [place] [id number] Patient Name: MITZI MACIAS MRN: [id number] date: 1970 Sex: F Assigned Patient Location: CT Current Patient Location: Accession/Order Number: [id number] Exam Date: 05/12/2024 11:15 Report Date: 05/12/2024 [...] M.D. Signed By:05/12/24 1419 DD/ 1416 TD/TT: Membership Sales Representative: Generic External Data Provider [facility] Final Result documented in this encounter Visit Diagnoses Not on filedocumented in this encounter Additional Health Concerns Assessment Noted Time PHQ-9 Depression Total Score: 3 01/17/20 24 10:08 AM EDT documented as of this encounter Care Teams Infantry Weapons Crewmember Relationship Specialty Start Date End Date Ty Amin MD PCP - General Family Medicine 09/20/23 Mckayla Blas NP [address] [place] [address] PCP - [facility] 09/07/23 01/11/25 Mckayla Blas NP Nurse Practitioner Family Medicine 09/20/23 documented as of this encounter
--- OUTSIDE RECORDS SUMMARY | 2025-03-24 09:39 | XMS_ITS | Clinical Summary ---
Author Organization [facility] Address [address] [place] [address] Care Team Providers Care Clinical Coder Name Role Phone Mckayla Blas MD Primary Care Provider [phone] Allergies No known active allergies Medications amitriptyline [...] SUBCUTANEOUSLY TWICE DAILY 2 Active HYDROcodone-ac etaminophen (Heth) 5-325 mg tablet TAKE 1 TABLET BY MOUTH THREE TIMES A DAY NEEDED FOR PAIN MUST LAST 30 DAYS 4 Active DULoxetine (Cymbalta) [address] capsule Take 1 tablet by mouth in the morning. Active ergocalciferol (Vitamin D-2) 1.25 MG (88244 Units) capsule Take 1.25 mg by mouth. 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 current use of inhaled steroid 025 Vitamin [...] am also going to have her see [facility] Cardiology as well Encounters Date Type Department Care Team Description 02/04/2025 Results Follow-Up Cardiology [address] [place] [address] Karma Chatterjee CNP Complete Echo (TTE) w/wo Imaging Agent, Strain, 3D, Bubble Study 01/30/2025 Orders Only [facility] [address] [place] [address] Provider, MD Dale 01/06/2025 11:20 AM EDT Office Visit [facility] [address] [place] [facility] [address] Karma Chatterjee CNP Chronic diastolic heart failure [...] drink = 0.6 oz pur e alcohol) [place] Safety & Environment Answer Date Rec orded [...] Months Insurance [employer] MEDICARE Care Teams Clinical Coder Relationship Specialty Start Date End Date Mckayla Blas MD [address] [place] [place] [address] PCP - General Nurse Practitioner 11/13/23
--- OUTSIDE RECORDS SUMMARY | 2025-03-24 09:39 | XMS_ITS | Encounter Summary ---
Author Organization [facility] Address [address] [place] [place] [address] Care Team Providers Care Inside Channel Account Manager Name Role Phone Mckayla Blas MD Primary Care Provider [phone] Encounter Details Date Type Department Care Team (Late st Contact Info) Description 02/04/2025 Results [facility] [address] [facility] [place] [address] Karma Chatterjee CNP [address] [place] [address] Complete Echo (TTE) w/wo Imaging Agent, Strain, [...] filedocumented in this encounter Care Teams Inside Channel Account Manager Relationship Specialty Start Date End Date Mckayla Blas MD [address] [place] [address] PCP - General Nurse Practitioner 11/13/23 documented as of this encounter
--- OUTSIDE RECORDS SUMMARY | 2025-03-24 09:39 | XMS_ITS | Encounter Summary ---
Author Organization [facility] Address [address] [place] [address] Care Team Providers Care Vault Clerk Name Role Phone Ty Amin MD Primary Care Provider [phone] Mckayla Blas WIREWORKER SUPERVISOR Unavailable [phone] Encounter Details Date Type Department Care Team (Late st Contact Info) Description 02/18/2025 Abstract [facility] [address] [place] [address] Mckayla Blas NP [address] [place] [address] Social History Tobacco Use Types Packs/Day Years [...] do you attend chur or orthodoxy services? More than 4 times per year [...] Recorded Patient Health Questionnaire-2 Score 0 01/26/2025 [facility] of Occupat [...] any time in the past 12 m [facility], were you homeless or living in [...] [facility] [place] [facility] [address] [place] [address] Rain Souza MD [address] [place] [address] documented as of this encounter Visit Diagnoses Not on filedocumented in this encounter Additional Health Concerns Assessment Noted Time PHQ-9 Depression Total Score: 3 01/17/20 24 10:08 AM EDT documented as of this encounter Care Teams Vault Clerk Relationship Specialty Start Date End Date Ty Amin MD PCP - General Family Medicine 09/20/23 Mckayla Blas NP Nurse Practitioner Family Medicine 09/20/23 documented as of this encounter
--- OUTSIDE RECORDS SUMMARY | 2025-03-24 09:39 | XMS_ITS | Encounter Summary ---
Author Organization [facility] Address [address] [place] [address] Care Team Providers Care Customs Compliance Analyst Name Role Phone Ty Amin MD Primary Care Provider [phone] Ty Amin MD Primary Care Provider [phone] Mckayla Blas BAKERY MACHINE MECHANIC SUPERVISOR Unavailable [phone] Mckayla Blas BAKERY MACHINE MECHANIC SUPERVISOR Unavailable [phone] Encounter Details Date Type Department Care Team (Late st Contact Info) Description 07/08/2023 Abstract [facility] [address] [place] [address] Mckayla Blas NP [address] [place] [address] Social History Tobacco Use Types Packs/Day Years [...] [facility] [place] [facility] [address] [place] [address] Rain Souza MD [address] [place] [address] documented as of this encounter Visit Diagnoses Not on filedocumented in this encounter Care Teams Customs Compliance Analyst Relationship Specialty Start Date End Date Ty Amin MD PCP - General Family Medicine 01/05/23 09/19/23 Ty Amin MD PCP - General Family Medicine 09/20/23 Mckayla Blas NP [address] [facility] [place] [address] PCP - [facility] 09/07/23 01/11/25 Mckayla Blas NP Nurse Practitioner Family Medicine 09/20/23 documented as of this encounter
--- OUTSIDE RECORDS SUMMARY | 2025-03-24 09:39 | XMS_ITS | Encounter Summary ---
Author Organization [facility] Address [address] [place] [address] Care Team Providers Care Antenna Rigger Name Role Phone Ty Amin MD Primary Care Provider [phone] Mckayla Blas INDUSTRIAL SERVICE TECHNICIAN Unavailable [phone] Mckayla Blas NP Unavailable [phone] Encounter Details Date Type Department Care Team (Late st Contact Info) Description 01/07/2025 Abstract [facility] [address] [place] [address] Mckayla Blas NP [address] [facility] [place] [address] Social History Tobacco Use Types Packs/Day Years [...] often do you attend chur ch or synagogue services? More than 4 times per year [...] any time in the past 12 m [facility], were you homeless or living in a [...] [facility] [place] [facility] [address] [place] [address] Rain Souza MD [address] [place] [address] documented as of this encounter Visit Diagnoses Not on filedocumented in this encounter Additional Health Concerns Assessment Noted Time PHQ-9 Depression Total Score: 3 01/17/20 24 10:08 AM EDT documented as of this encounter Care Teams Antenna Rigger Relationship Specialty Start Date End Date Ty Amin MD PCP - General Family Medicine 09/20/23 Mckayla Blas NP [address] [place] [address] PCP - [facility] 09/07/23 01/11/25 Mckayla Blas NP Nurse Practitioner Family Medicine 09/20/23 documented as of this encounter
--- OUTSIDE RECORDS SUMMARY | 2025-03-24 09:39 | XMS_ITS | Encounter Summary ---
Author Organization [facility] Address [address] [place] [address] Care Team Providers Care Jewelry Polisher Name Role Phone Ty Amin MD Primary Care Provider [phone] Mckayla Blas NP Unavailable [phone] Mckayla Blas NP Unavailable [phone] Encounter Details Date Type Department Care Team (Late st Contact Info) Description 05/12/2024 Orders Only [facility] [address] [place] [address] Angela Cochran NP [address] [place] [address] Social History Tobacco Use Types [...] Visit [facility] [facility] [address] [place] [address] Rain Souza MD [address] [place] [address] documented as of this encounter Procedures Procedure [...] documented as of this encounter Care Teams Jewelry Polisher Relationship Specialty Start Date End Date Ty Amin MD PCP - General Family Medicine 09/20/23 Mckayla Blas NP [address] [place] [address] PCP - [facility] 09/07/23 01/11/25 Mckayla Blas NP Nurse Practitioner Family Medicine 09/20/23 documented as of this encounter
--- OUTSIDE RECORDS SUMMARY | 2025-03-24 09:39 | XMS_ITS | Encounter Summary ---
Author Organization [facility] Address [address] [place] [address] Care Team Providers Care Receptionist Secretary Name Role Phone Ty Amin MD Primary Care Provider [phone] yT Amin MD Primary Care Provider [phone] Mckayla Blas MARINE ELECTRONICS REPAIRER Unavailable [phone] Mckayla Blas MARINE ELECTRONICS REPAIRER Unavailable [phone] Encounter Details Date Type Department Care Team (Late st Contact Info) Description 09/12/2023 Orders Only [facility] [address] [place] [address] Social History Tobacco Use Types Packs/Day Years [...] do you attend chur or temple services? 1 to 4 times [...] Recorded Patient Health Questionnaire-2 Score 2 07/10/2023 [facility] - Occupational [...] [facility] [address] [place] [address] Rain Souza MD [address] [place] [address] documented as of this encounter Procedures Procedure Name Priority Date/Time Associated Diagnosis Comments XR CHEST 1 VIEW Routine 09/11/2023 4:52 PM EST documented in this encounter Results * XR chest 1 view (09/11/2023 4:52 PM EST) Anatomical Region Laterality Modality Chest Radiographic Kalani ging [facility] IMG XR PROCEDURES Final Result documented in this encounter Visit Diagnoses Not on filedocumented in this encounter Care Teams Receptionist Secretary Relationship Specialty Start Date End Date Ty Amin MD PCP - General Family Medicine 01/05/23 09/19/23 Ty Amin MD PCP - General Family Medicine 09/20/23 Mckayla Blas NP [address] [place] [address] PCP - [facility] 09/07/23 01/11/25 Mckayla Blas NP Nurse Practitioner Family Medicine 09/20/23 documented as of this encounter
--- OUTSIDE RECORDS SUMMARY | 2025-03-24 09:39 | XMS_ITS | Clinical Summary ---
Author Organization [facility] Address [id number] [address] [place] [address] Care Team Providers Care Expert Medical Writer Name Role Phone Wan Mckayla Krystal PEREZN-DEVULCANIZER CHARGER Primary Care Provider Allergies No known active [...] Medical Devices Not on file Insurance [place]ICAID [place] [employer] MEDICARE Care Teams Expert Medical Writer Relationship Specialty Start Date End Date Mckayla Blas APRN-DEVULCANIZER CHARGER [address] [place] [address] PCP - General Nurse Practitioner 09/25/18
--- OUTSIDE RECORDS SUMMARY | 2025-03-24 09:39 | XMS_ITS | Encounter Summary ---
Author Organization [facility] Address [address] [place] [address] Care Team Providers Care Critical Care Registered Nurse Name Role Phone Ty Amin MD Primary Care Provider [phone] Mckayla Blas OVERLOCK SLEEVE SETTER Unavailable [phone] Mckayla Blas NP Unavailable [phone] Encounter Details Date Type Department Care Team (Late st Contact Info) Description 12/14/2023 Clinisync Result Encounter [facility] External Department Unsolicited Mckayla Blas NP [address] [place] [address] Social History Tobacco Use Types Packs/Day Years [...] do you attend chur or islam services? 1 to 4 times [...] 11/01/2023 [facility] - Occupational Stress Questionnaire Answer [...] [facility] [address] [place] [address] Rain Souza MD [address] [place] [address] documented as of this encounter Procedures Procedure Name Priority Date/Time Associated Diagnosis Comments MM TOMOSYNTHESIS SCREENING BI 12/14/2023 11:21 AM EDT documented in this encounter Results * MM TOMOSYNTHESIS SCREENING BI (12/14/2023 11:21 AM EDT) Anatomical Region Laterality Modality Other 12/14/2023 11:2 1 AM EDT Narrative 12/14/2023 11:22 AM EDT The [address] [address] Mammography Report Signed Patient: MITZI MACIAS MR#: [id number] : 1970 Acct:[id number] Age/Sex: 53 / F ADM Date: 12/13/23 Loc: MAMMO Attending Dr: Mckayla Blas NP Ordering Physician: Mckayla Blas NP Results: Date of Service: 12/13/23 Follow Up: Procedure(s): MM tomosynthesis screening BI Accession Number(s): [id number] cc: Mckayla Blas NP Patient Name: MITZI MACIAS MR#: [id number] : 1970 Exam Date: 12/13/2023 Ordering Doctor: [...] at age 75. LOCATION: The [facility] BREAST COMPOSITION: The breasts are [...] Signed By: 12/14/23 1122 DD/ 1121 TD/TT: Contract Preparer: Procedure Note Radiology, Radiologist, MD - 12/14/2023 [place] [address] Mammography Report Signed Patient: MITZI MACIAS LMR#: [id number] : 1970Acct:[id number] Age/Sex: 53 / FADM Date: 12/13/23 Loc: MAMMO Attending Dr: Mckayla Blas OVERLOCK SLEEVE SETTER Ordering Physician: Mckayla Blas NPResults: Date of Service: 12/13/23Follow Up: Procedure(s): MM tomosynthesis screening BI Accession Number(s): [id number] cc: Mckayla Blas NP Patient Name: MITZI MACIAS MR#: [id number] : 1970 Exam Date: 12/13/2023 Ordering Doctor: SAYDA Blas TELEMETRY REGISTERED NURSE RADIOLOGY REPORT PROCEDURE: MM TOMOSYNTHESIS SCREENING BI [...] at age 75. LOCATION: The [facility] BREAST COMPOSITION: The breasts are [...] M.D. Signed By:12/14/23 1122 DD/ 1121 TD/TT: Contract Preparer: us Mckayla Blas NP [facility] Final Result documented in this encounter Visit Diagnoses Not on filedocumented in this encounter Care Teams Critical Care Registered Nurse Relationship Specialty Start Date End Date Ty Amin MD PCP - General Family Medicine 09/20/23 Mckayla Blas NP [address] [place] [address] PCP - [facility] 09/07/23 01/11/25 Mckayla Blas NP Nurse Practitioner Family Medicine 09/20/23 documented as of this encounter
--- OUTSIDE RECORDS SUMMARY | 2025-03-24 09:39 | XMS_ITS | Encounter Summary ---
Author Organization [facility] Address [address] [place] [address] Care Team Providers Care Securities Research Analyst Name Role Phone Ty Amin MD Primary Care Provider [phone] Mckayla Blas WAREHOUSE REPRESENTATIVE Unavailable [phone] Mckayla Blas WAREHOUSE REPRESENTATIVE Unavailable [phone] Reason for Visit * Reason Comments Med Refill Encounter Details Date Type Department Care Team (Late st Contact Info) Description 11/27/2023 Refill [facility] [address] [place] [address] Mckayla Blas NP [address] [place] [address] Chronic obstructive pulmonary disease, unspecified (HCC) Social [...] Recorded Patient Health Questionnaire-2 Score 0 11/01/2023 [facility] [...] [facility] [address] [place] [address] Rain Souza MD [address] [place] [address] documented as of this encounter Visit Diagnoses Diagnosis Chronic obstructive pulmonary disease, unspecified (HCC) documented in this encounter Care Teams Securities Research Analyst Relationship Specialty Start Date End Date Ty Amin MD PCP - General Family Medicine 09/20/23 Mckayla Blas NP [address] [place] [address] PCP - [facility] 09/07/23 01/11/25 Mckayla Blas NP Nurse Practitioner Family Medicine 09/20/23 documented as of this encounter
--- OUTSIDE RECORDS SUMMARY | 2025-03-24 09:39 | XMS_ITS | Encounter Summary ---
Author Organization [facility] Address [address] [place] [address] Care Team Providers Care Warehouse Operator Name Role Phone Ty Amin MD Primary Care Provider [phone] Mckayla Blas NP Unavailable [phone] Mckayla Blas NP Unavailable [phone] Encounter Details Date Type Department Care [...] [facility] [address] [place] [address] Rain Souza MD [address] [place] [address] documented as of this encounter Procedures Procedure Name Priority Date/Time Associated Diagnosis Comments SEGMENTAL BLOOD PRESSURE 04/24/2024 11:20 AM EDT documented in this encounter Results * SEGMENTAL BLOOD PRESSURE (04/24/2024 11:20 AM EDT) Anatomical Region Laterality Modality Radiographic Kalani ging 04/24/2024 11:2 0 AM EDT Narrative 04/24/2024 11:23 AM EDT The [address] [address] Vein Report Signed Patient: MITZI MACIAS MR#: [id number] : 1970 Acct:[id number] Age/Sex: 53 / F ADM Date: 04/24/24 Loc: VC Attending Dr: Rafael Gongora Ordering Physician: Rafael Gongora Date of Service: 04/24/24 Procedure(s): VC SEGMENTAL PRESSURES Accession Number(s): [id number] cc: Mckayla Blas NP; Rafael Gongora The [place] [address] Patient Name: MITZI MACIAS MRN: [id number] date: 1970 Sex: F Assigned Patient Location: VC Current Patient Location: VC Accession/Order Number: [id number] Exam Date: 04/24/2024 10:25 Report Date: 04/24/2024 11:20 At the request of: RAFAEL GONGORA Procedure: VC SEGMENTAL PRESSURES EXAM: VC SEGMENTAL PRESSURES HISTORY: R09.89 COMPARISON: None. FINDINGS: Segmental pressures presented as follows (right, left) in mmHg. Brachial: 169, 166 Upper thigh: Not obtained Lower thigh: 129, 119 Calf: 124, 106 DPA: 108, 105 TIMBER KILLER: 100, 91 1st Toe: 124, 142 ISABELLE: [...] Signed By: 04/24/24 1123 DD/ 1120 TD/TT: Director Operations Broadcast: Procedure Note Radiology, Radiologist, MD - 04/24/2024 [place] [address] Vein Report Signed Patient: MITZI MACIAS LMR#: [id number] : 1970Acct:[id number] Age/Sex: 53 / FADM Date: 04/24/24 Loc: VC Attending Dr: Rafael Gongora Ordering Physician: Rafael Gongora Date of Service: 04/24/24 Procedure(s): VC SEGMENTAL PRESSURES Accession Number(s): [id number] cc: Mckayla Blas NP; Rafael Gongora [place] [id number] Patient Name: MITZI MACIAS MRN: [facility]:[id number] date: 1970 Sex: F Assigned Patient Location: VC Current Patient Location: VC Accession/Order Number: [id number] Exam Date: 04/24/2024 10:25 Report Date: 04/24/2024 11:20 At the request of: RAFAEL GONGORA Procedure: VC SEGMENTAL PRESSURES EXAM: VC SEGMENTAL PRESSURES HISTORY: R09.89 COMPARISON: None. FINDINGS: Segmental pressures presented as follows (right, left) in mmHg. Brachial: 169, 166 Upper thigh: Not obtained Lower thigh: 129, 119 Calf: 124, 106 DPA: 108, 105 TIMBER KILLER: 100, 91 1st Toe: 124, 142 ISABELLE: [...] M.D. Signed By:04/24/24 1123 DD/ 1120 TD/TT: Director Operations Broadcast: us Generic External Data Provider IMG XR PROCEDURES Final Result documented in this encounter Visit Diagnoses Not on filedocumented in this encounter Additional Health Concerns Assessment Noted Time PHQ-9 Depression Total Score: 3 01/17/20 24 10:08 AM EDT documented as of this encounter Care Teams Warehouse Operator Relationship Specialty Start Date End Date Ty Amin MD PCP - General Family Medicine 09/20/23 Mckayla Blas NP [address] [place] [address] PCP - [facility] 09/07/23 01/11/25 Mckayla Blas NP Nurse Practitioner Family Medicine 09/20/23 documented as of this encounter
--- OUTSIDE RECORDS SUMMARY | 2025-03-24 09:42 | XMS_ITS | CCD ---
Author Organization [facility] Care Team Providers Care Helicopter Utility Aircrewman Name Role Phone James Benavidez Primary Care Provider [phone] JAMES BENAVIDEZ Primary Care Unavailable SHENDGE, VITHAL Admitting Unavailable SHENDGE, VITHAL Attending Unavailable AICHHOLZ, MCKAYLA Primary Care Unavailable AICHHOLZ, MCKAYLA Referring Unavailable AICHHOLZ, MCKAYLA J Primary Care Physician Tico, Stephanie Unavailable OLE RAMIREZ Attending Unavailable OLE RAMIREZ Consulting Unavailable AICHHOLZ, STOCK TRADER MCKAYLA Primary Care Unavailable OLE RAMIREZ Admitting Unavailable ANTONY SHRESTHA Consulting Unavailable ALONDRA ., UMBERTO Admitting Unavailable ALONDRA ., UMBERTO Attending Unavailable AICHHOLZ, STOCK TRADER MCKAYLA Primary Care Unavailable AFSANEH Loera, DR BOLANOS Consulting Unavailable MARYANNE POWER Consulting Unavailable GLENN KERR Consulting Unavailable YOMAIRA KERR Consulting Unavailable HATTIE GOFF Consulting Unavailable ALONDRA ., UMBERTO Consulting Unavailable TICO, STEPHANIE Attending Unavailable TICO, STEPHANIE Consulting Unavailable AICHHOLZ, STOCK TRADER MCKAYLA Primary Care Unavailable TICO, STEPHANIE Admitting Unavailable REGLA ., DR DUMONT Admitting Unavailable AICHHOLZ, STOCK TRADER MCKAYLA Primary Care Unavailable REGLA ., DR DUMONT Attending Unavailable ARAUZ ., DR DUMONT Consulting Unavailable COLLIN HUERTAS Consulting Unavailable CECILIA KAUFMAN Admitting Unavailable CECILIA KAUFMAN Attending Unavailable AICHHOLZ, STOCK TRADER MCKAYLA Primary Care Unavailable RAFAEL GONGORA Attending Unavailable RAFAEL GONGORA Admitting Unavailable AICHHOLZ, STOCK TRADER MCKAYLA Primary Care Unavailable AICHHOLZ, STOCK TRADER MCKAYLA Admitting Unavailable AICHHOLZ, STOCK TRADER MCKAYLA Primary Care Unavailable AICHHOLZ, STOCK TRADER MCKAYLA Attending Unavailable AICHHOLZ, STOCK TRADER MCKAYLA Consulting Unavailable LAKSHMIPATHY ., NARENDRANATH Attending Anette vailable LAKSHMIPATHY ., NARENDRANATH Consulting Anette vailable LAKSHMIPATHY ., NARENDRANATH Admitting Anette vailable AICHHOLZ, STOCK TRADER MCKAYLA Primary Care Unavailable VALENZUELA ., GIL Consulting Unavailable MORTENSEN ., DR CHAPARRO Aguillon Attending Unavailable MORTENSEN ., DR CHAPARRO Aguillon Admitting Unavailable AICHHOLZ, STOCK TRADER MCKAYLA Primary Care Unavailable VALENZUELA ., GIL Consulting Unavailable MORTENSEN ., DR CHAPARRO Aguillon Admitting Unavailable AICHHOLZ, STOCK TRADER MCKAYLA Primary Care Unavailable MORTENSEN ., DR CHAPARRO Aguillon Attending Unavailable HALKER ., SUBHASH Consulting Unavailable LAKSHMIPATHY ., NARENDRANATH Admitting Anette vailable LAKSHMIPATHY ., NARENDRANATH Attending Anette vailable AICHHOLZ, STOCK TRADER MCKAYLA Primary Care Unavailable MORTENSEN ., DR CHAPARRO Aguillon Attending Unavailable MORTENSEN ., DR CHAPARRO Aguillon Admitting Unavailable VALENZUELA ., GIL Consulting Unavailable AICHHOLZ, STOCK TRADER MCKAYLA Primary Care Unavailable VALENZUELA ., GIL Consulting Unavailable MORTENSEN ., DR CHAPARRO Aguillon Attending Unavailable MORTENSEN ., DR CHAPARRO Aguillon Admitting Unavailable AICHHOLZ, STOCK TRADER MCKAYLA Primary Care Unavailable HATTIE BRODERICK Attending Unavailable HATTIE BRODERICK Admitting Unavailable AICHHOLZ, STOCK TRADER MCKAYLA Primary Care Unavailable AICHHOLZ, STOCK TRADER MCKAYLA Admitting Unavailable AICHHOLZ, STOCK TRADER MCKAYLA Consulting Unavailable AICHHOLZ, STOCK TRADER MCKAYLA Primary Care Unavailable AICHHOLZ, STOCK TRADER MCKAYLA Attending Unavailable AICHHOLZ, STOCK TRADER MCKAYLA Primary Care Unavailable MISC, DR LESLIE Admitting Unavailable MISC, DR LESLIE Attending Unavailable MISC, DR LESLIE Consulting Unavailable DIAB ., MARIANO Admitting Unavailable DIAB ., MARIANO Attending Unavailable DIAB ., MARIANO Consulting Unavailable AICHHOLZ, STOCK TRADER MCKAYLA Primary Care Unavailable RASTEGAR, RICCO Consulting Unavailable AICHHOLZ, STOCK TRADER MCKAYLA Admitting Unavailable AICHHOLZ, STOCK TRADER MCKAYLA Primary Care Unavailable AICHHOLZ, STOCK TRADER MCKAYLA Attending Unavailable AICHHOLZ, STOCK TRADER MCKAYLA Consulting Unavailable DR PATRICIA VELOZ Consulting Unavailable TAMLYN ., CECILIA Attending Unavailable TAMLYN ., CECILIA Admitting Unavailable DR PATRICIA VELOZ Consulting Unavailable AICHHOLZ, STOCK TRADER MCKAYLA Primary Care Unavailable TAMLYN ., CECILIA Consulting Unavailable MORTENSEN ., DR CHAPARRO Aguillon Attending Unavailable FESTUS ., DR CHAPARRO Aguillon Consulting Unavailable FESTUS ., DR CHAPARRO Aguillon Admitting Unavailable AICHHOLZ, STOCK TRADER MCKAYLA Primary Care Unavailable HATTIE BRODERICK Attending Unavailable HATTIE BRODERICK Consulting Unavailable HATTIE BRODERICK Admitting Unavailable AICHHOLZ, STOCK TRADER MCKAYLA Primary Care Unavailable HATTIE BAUTISTA Unavailable AICHHOLZ, STOCK TRADER MCKAYLA Admitting Unavailable AICHHOLZ, STOCK TRADER MCKAYLA Attending Unavailable AICHHOLZ, STOCK TRADER MCKAYLA Consulting Unavailable AICHHOLZ, STOCK TRADER MCKAYLA Primary Care Unavailable Brennan PHIPPS, Ty Primary Care Provider Brennan PHIPPS, Ty Primary Care Provider Aichholz ENTERPRISE SALES EXECUTIVE, Mckayla Unavailable Aichholz ENTERPRISE SALES EXECUTIVE, Mckayla Unavailable Elbert ARAUZ Attending Unavailable SARAH VEGA Attending Unavailable AICHHOLZ, MCKAYLA Attending Unavailable RAIN SOUZA F Attending Unavailable AICHHOLZ, MCKAYLA Attending Unavailable AICHHOLZ, MCKAYLA Attending Unavailable AICHHOLZ, MCKAYLA Attending Unavailable LIBBYRAIN GIANG F Attending Unavailable AICHHOLZ, MCKAYLA Attending Unavailable RAIN SOUZA F Attending Unavailable LIBBY AHMAD F Referring Unavailable AICHHOLZ, MCKAYLA Attending Unavailable DAKOTAH BRIDGES Attending Unavailable AMI ORO Attending Unavailable Aichholz ENTERPRISE SALES EXECUTIVE, Mckayla Unavailable Adonay CHAU, Flynn Arzate Attending Unavailab lolita Urias DPM, Flynn Arzate Referring Unavailab le Bob BUGGYMAN-STOCK TRADER, Omero Lovell Attending Unav roberto Urias DPM, Flynn Arzate Attending Unavailab le Allergies Allergy Classification Reported Allergen(s) Allergy Type Date of Onset Reaction(s) Facility (1 source) No Known Medication Allergies; Translations: [No Known Medication Allergies] Propensity to adverse reactions (disorder) [facility] Repository Medications Current Medications Medication Drug [...] Date: 02/06/22 Status: Ordered HYDROcodone-acet aminophen ([place]) 5-325 MG tablet 1 tablet 3 (three) times a day as needed for severe pain. Active take 1 tablet by vandana twice daily as needed [place] 5-325 MG 1 tablet as needed Orally [...] every week ergocalciferol (Vitamin D2) 1.25 MG (92578 UT) capsule Indications: Vitamin D deficiency, unspecified Take 1 capsule (1.25 mg) by mouth 1 (one) time per week 12 capsule 1 01/16/2025 04/10/2025 Active Start: 10-27-2024 End: 01-19-2025 take 1 capsule by mouth two times weekly ergocalciferol (Vitamin D2) 1.25 MG (49101 UT) capsule Indications: Vitamin D deficiency, unspecified Take 1 capsule (1.25 mg) by mouth 2 (two) times a week 24 capsule 1 10/27/2024 01/19/2025 Active Start: 04-06-2024 End: 10-27-2024 take 1 capsule by mouth every week ergocalciferol (Vitamin D2) 1.25 MG (45829 UT) capsule Indications: Vitamin D deficiency, unspecified [...] nursing home (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 therapy; Translations: [OTH HALFWAY CURRENT DRUG THERAPY] Onset: 12-05-2022 Episodic Other aftercare (1 source) senior living (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; Translations: [HALFWAY CURRENT USE OF ASPIRIN] Onset: 12-05-2022 Episodic Other aftercare (6 sources) Long-term current use of insulin; Translations: [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] 05-27-2024 Episodic Other [...] ocumentation in Social History. Unclassified (1 source) MUSEUM HOST/HOSTESS INJECT NONINSULN ANTIDIAB; Translations: [MUSEUM HOST/HOSTESS INJECT NONINSULN ANTIDIAB] Onset: 12-05-2022 Unclassified (3 [...] 08-27-2024 08-27-2024 Episodic Other aftercare (3 sources) senior living (current) use of insulin; Translations: [MUSEUM HOST/HOSTESS CURRENT USE OF INSULIN] Onset: 12-05-2022 Episodic Other aftercare (20 sources) Long-term current use of inhaled steroid; Translations: [intermodal dispatcher (current) use of inhaled steroids] Onset: 08-27-2024 [...] Test Name Value Interpretation Reference Range Facility Vascular Office/Clinic Noteo n 03-23-2025 Vascular Office/Clinic Note Chief Complaint lle wound History of Present Illness Mitzi is a 54-year-old morbidly obese female with a history of nonhealing wounds to the lower extremities. She is referred to our office today by Dr. Urias, he is seeing her for a nonhealing wound of the right lateral lower extremity. Wound has been present for approximately 10 months and refractory to healing efforts. PMH is significant for tobacco abuse (1/2 ppd x 40years), IDDM, morbid obesity. She denies any known history of PVD. She has followed with wound care 3 times a week in the past for venous stasis ulcers. She has had testing done at the [facility] last year which she brought with her, these would suggest at least moderate PAD bilaterally. She does not ambulate frequently because she has chronic hip pain on the right as well as muscle aching in the calves consistent with claudication. Review of Systems Constitutional: No fevers, chills, sweats, weakness Eye: No recent vision changes, double vision ENMT: No ear pain, nasal congestion, sore throat, voice changes Respiratory: No shortness of breath, cough, wheezing or sputum Cardiovascular: No Chest pain or tightness, palpitations, syncope, +swelling Gastrointestinal: No nausea, vomiting, diarrhea, blood in stool, indigestion Genitourinary: No hematuria, frequency or urgency Edwardo/Lymph: Negative for bruising tendency, swollen lymph glands Endocrine: Negative for excessive thirst, excessive hunger Musculoskeletal: No back pain, neck pain, joint pain, muscle pain, injury Integumentary: No rash, pruritus, abrasions, Neurologic: No headache, dizziness, fainting, seizures, balance problems Psychiatric: No anxiety, depression, suicidal thoughts Physical Exam Vitals & Measurements HR: 70 (Peripheral) BP: 128/68 SpO2: 93% HT: 170 cm WT: 173.7 kg BMI: 60.1 General: calm, cooperative, A/Ox4 Lungs: Clear to auscultation bilaterally Heart: Normal rate, regular rhythm, no murmur, gallop or edema Abdomen: Soft, non-tender, non-distended, normal bowel sounds, no masses Lower extremity: Right lateral distal tib-fib wound. Right foot is pale and normothermic to slightly cool. Difficult to palpate pedal pulses Additional Vitals BP Position/Location: Sitting, Right arm Assessment and Plan: 1. PVD (peripheral vascular disease) Essentially a 54 old female with chronic ulcerations of the lower EXTR, has previously been treated with wound care solutions. Most recent wounds lateral aspect of the distal right leg that has been slow to heal for the last 10 months. Previous PAD testing suggests at least moderate PAD bilaterally. Recommended repeat ISABELLE testing and then follow-up with Dr. Alatorre, likely will need formal angiogram. All questions answered. Medical Decision Making Chronic conditions NOT treated during this visit that affected my overall medical decision making: [] Treatment plans discussed but not opted for at this time: [] Prescribed medication that requires intensive monitoring for toxicity: [] I have reviewed the patient?s medication list for medication interactions/contrai ndications and/or for upcoming procedures: [yes or no] Time Spent with the Patient I have personally spent [30] minutes on this date, directly related to today's patient visit, including pre and post visit work, for this date of service. Time listed does not include time spent on separately billable services. Problem List/Past Medical History Ongoing No qualifying data Historical No qualifying data Medications amitriptyline 25 mg oral tablet, 30 EA, 0 Refill(s), TAKE 1 TABLET BY MOUTH AT BEDTIME Aspirin Low Dose 81 mg oral tablet, chewable, 90 EA, 0 Refill(s), CHEW 1 TABLET BY MOUTH DAILY diclofenac sodium 75 mg oral delayed release tablet, 60 EA, 0 Refill(s), TAKE 1 TABLET BY MOUTH TWICE A DAY NEEDED FOR PAIN Farxiga 10 mg oral tablet, 90 EA, 0 Refill(s), TAKE 1 TABLET BY MOUTH DAILY furosemide 20 mg oral tablet, 90 EA, 0 Refill(s), TAKE 1 TABLET (20 MG) BY MOUTH DAILY NEEDED (EDEMA) TAKE IN THE AFTERNOON NEEDED Lantus Solostar Pen 100 units/mL subcutaneous solution, 30 mL, 0 Refill(s), INJECT 58 UNITS UNDER THE SKIN IN THE MORNING AND 58 UNITS BEFORE BEDTIME lisinopril 20 mg oral tablet, 90 EA, 0 Refill(s), TAKE 1 TABLET BY MOUTH EVERY DAY Mounjaro 15 mg/0.5 mL subcutaneous solution, 6 mL, 0 Refill(s), INJECT 15MG SUBCUTANEOUSLY ONCE A WEEK pregabalin 150 mg oral capsule, 30 EA, 0 Refill(s), TAKE 1 CAPSULE BY MOUTH DAILY, DO NOT FILL UNTIL 02/13/25 Allergies No active allergies Social History Tobacco 10 or more cigarettes (1/2 pack or more)/day in last 30 days Use:. Cigarettes, 0.5 per day. Packs Electronically signed by Bob AMAURYOmero 03/23/25 12:01 EDT Normal [facility] Podiatry Office/Clinic Noteo n 03-11-2025 Podiatry Office/Clinic [...] wraps (gauze, tila bandage, Coban II, tuba annealer helper), Dakins solution, a 40-day course of antibiotics, [...] other blood thinners. The patient resides in [place]. Review of Systems Constitutional: Negative for signs [...] extremities Positi (more content not included)... Normal [facility] Comment on above: Order Comment: Destiny ocampo Attachment [id number] Can be viewed in source system XR Tibia/Fibula Righton 09-0 XR Tibia/Fibula Right 2 views right tib-fib [...] Electronically Signed in Other Vendor System) Normal [facility] Orders Onlyon 01-30-2025 Orders Only [id number] Mitzi Macias 1970 F Date Provider Department Center 01/30/2025 [id number], HISTORICAL [facility] Family History Problem Relation Age of Onset Heart attack Paternal Grandmother Family Status - Relation Status Age at Mother Father Paternal Grandmother Normal [facility] CA ECHO DOPPLER COMPLETEon 0 01-29-2025 [place] [id number] Cardiology Report Signed Patient: MITZI MACIAS MR#: [id number] : 1970 Acct:[id number] Age/Sex: 54 / F ADM Date: 01/29/25 Loc: CARD Attending Dr: AMI ORO APRN Ordering Physician: AMI ORO APRN Date of Service: 01/29/25 Procedure(s): CA echo doppler complete Accession Number(s): [id number] cc: Mckayla Blas ENTERPRISE SALES EXECUTIVE; AMI ORO APRN Patient Name: MITZI MACIAS MR#: [id number] : 1970 Exam Date: 01/29/2025 Ordering Doctor: [...] HERRERA Signed By: 01/29/251839 DD/ 39 TD/TT: [employer] Estimator: [facility] Radiology, Radiologist, MD - 01/29/2025 [place] [address] Cardiology Report Signed Patient: MITZI MACIAS MR#: [id number] : 1970 Acct:[id number] Age/Sex: 54 / F ADM Date: 01/29/25 Loc: CARD Attending Dr: AMI ORO APRN Ordering Physician: AMI ORO APRN Date of Service: 01/29/25 Procedure(s): CA echo doppler complete Accession Number(s): [id number] cc: Mckayla Blas ENTERPRISE SALES EXECUTIVE; AMI ORO APRN Patient Name: MITZI MACIAS MR#: [id number] : 1970 Exam Date: 01/29/2025 Ordering Doctor: [...] HERRERA Signed By: 01/29/251839 DD/ 39 TD/TT: [employer] Estimator: [facility] Radiology Study observation (narrative) [facility] CA ECHO DOPPLER COMPLETEOrde red By: Radiologist Radiology on 01-29-2025 [facility] Work Phone: Glucose (Bld) [Mass/Vol]on 0 01-29-2025 Glucose Blood, POC 121 mg/dL [facility] Laboratory - Hematology and Cell countson 01-29-2025 HbA1c (Bld) [Mass fraction] 8.4 % [facility] No Panel Informationon 01-29 Interpretation and review of laboratory results Abnormal [facility] Office Visiton 01-06-2025 Follow-up visit [id number] GilbertoMitzi Gilberto 1970 F Date Provider Department Center 01/06/2025 AMI SARABIA Family History Problem Relation Age of Onset Heart attack Paternal Grandmother Family Status - Relation Status Age at Mother Father Paternal Grandmother Level of Service:29602 AL OFFICE/OUTPATIENT ESTABLISHED MOD MDM 30 MIN Reason for Visit and Comments: Congestive Heart Failure [127] Hypertension [214554] Hyperlipidemia [182] Normal [facility] 36on 10-21-2024 36 Regarding lab results from 10/08/2024: MD Mickie Merritt MA Lipids, ALT AST, and BMP are normal. HbA1c was not performed. Continue current management. LM on patient's VM. Normal [facility] Glucose (Bld) [Mass/Vol]Orde red By: Mica Sauceda on 10-08-2024 Glucose Blood, POC 97 mg/dL [facility] Laboratory - Hematology and Cell countson 10-08-2024 HbA1c (Bld) [Mass fraction] 7.4 % [facility] No Panel InformationOrdered By: Mica Sauceda on 10-08-2024 [facility] TBH UA (CLEAN/CATCH) MICROSC OPIC IF INDICATEon 10-08-2024 BILIRUBIN URINE Negative NEGATIVE [facility] BLOOD URINE Negative NEGATIVE [facility] Clarity (U) CLEAR CLEAR [facility] Color (U) YELLOW YELLOW [facility] GLUCOSE URINE UA Negative NEGATIVE mg/dL [facility] Interpretation and review of laboratory results Abnormal [facility] Ketones Ql (U) Negative NEGATIVE mg/dL [facility] Leukocyte esterase Test strip Ql (U) Negative NEGATIVE [facility] NITRITE URINE Negative NEGATIVE [facility] pH (U) 5.5 [pH] 5.0 - 9.0 [facility] Protein (U) [Mass/Vol] 30 mg/dL Abnormal NEG/TRACE NO [facility] SPECIFIC GRAVITY URINE >=1.030 Abnormal 1.005 - 1.025 [facility] URINE MICROSCOPIC INDICATED YES [facility] UROBILINOGEN URINE 1.0 EU/dL 0.2 - 1.0 EU/dL [facility] ALL CBC WITH AUTO DIFFon BASOPHILS ABSOLUTE AUTO 0.1 [facility] Basophils/100 WBC (Bld) 0.5 % 0.2 - 2.0 % [facility] Eosinophils/100 WBC (Bld) 1.9 % 0.9 - 7.0 % [facility] Erythrocyte distribution width (RBC) [Ratio] 14.6 % 11.0 - 15.0 % [facility] Hematocrit (Bld) [Volume fraction] 50.9 % High 36.0 - 48.0 % [facility] Hemoglobin (Bld) [Mass/Vol] 16.1 g/dL High 12.0 - 16.0 g/dL [facility] IMMATURE GRANULOCYTES ABS AUTO 0.04 High [facility] Immature granulocytes/100 WBC (Bld) 0.3 % 0.0 - 0.5 % [facility] Interpretation and review of laboratory results Abnormal [facility] LYMPHOCYTES ABSOLUTE AUTO 3.2 [facility] Lymphocytes/100 WBC (Bld) 25.1 % 20.5 - 60.0 % [facility] MCH (RBC) [Entitic mass] 29.2 pg 26.7 - 34.0 pg [facility] MCHC (RBC) [Mass/Vol] 31.6 g/dL 29.9 - 35.2 g/dL [facility] MCV (RBC) [Entitic vol] 92.2 fL 81.0 - 99.0 fL [facility] MONOCYTES ABSOLUTE AUTO 0.7 [facility] Monocytes/100 WBC (Bld) 5.2 % 1.7 - 12.0 % [facility] NEUTROPHILS ABSOLUTE AUTO 8.6 High [facility] Neutrophils/100 WBC (Bld) 67 % 43.0 - 75.0 % [facility] Platelet mean volume (Bld) [Entitic vol] 12.8 fL 9.5 - 13.5 fL [facility] EO # 0.2 [facility] PLT 122 Low [facility] RBC 5.52 High [facility] WBC 12.8 High [facility] Office Visiton 08-08-2024 Follow-up visit [id number] Mitzi Macias 1970 F Date Provider Department Center 08/08/2024 [id number] BRIDGES [facility] Family History Problem Relation Age of Onset Heart attack Paternal Grandmother Family Status - Relation Status Age at Paternal Grandmother Level of Service:42630 AL OFFICE/OUTPATIENT ESTABLISHED MOD MDM 30 MIN Reason for Visit and Comments: Congestive Heart Failure [127] - Denies chest pain, SOB, and palpitations. Hypertension [461409] Hyperlipidemia [182] LVH [Other] Edema [[id number]] - Denies worsening edema. She sees wound care for RLE ulcer. She was seeing the vein specialists here in town but they are moving to [place] in a few weeks. Normal [facility] Glucose (Bld) [Mass/Vol]Orde red By: Mica Sauceda on 05-27-2024 Glucose Blood, POC 158 mg/dL [facility] Laboratory - Hematology and Cell countson 05-27-2024 HbA1c (Bld) [Mass fraction] 9.2 % [facility] No Panel InformationOrdered By: Mica Sauceda on 05-27-2024 [facility] CREATININEon 05-12-2024 Creatinine [Mass/Vol] 0.92 mg/dL 0.55 - 1.02 mg/dL [facility] GFR/1.73 sq M.predicted CKD-EPI (S/P/Bld) [Vol rate/Area] >60 >=60 mL/min/1.73m 2 [facility] EGFR-NON AF GERMAN >60 >=60 mL/min/1.73m 2 [facility] CBC AUTO DIFFon 12-06-2022 BASO # 0.0 103/ul Normal 0.0-0.1 [facility] Comment on above: Performed By: #### C BC #### [facility] [address] [place] [address] Dr. Ashlie Hills Basophils/100 WBC (Bld) 0.1 % Critically low 0.2-2.0 [facility] Comment on above: Performed By: #### C BC #### [facility] [address] [place] [address] Dr. Ashlie Hills EO # 0.0 103/ul Normal 0.0-0.7 [facility] Comment on above: Performed By: #### C BC #### [facility] [address] [place] [address] Dr. Ashlie Hills Eosinophils/100 WBC (Bld) 0.0 % Critically low 0.9-7.0 [facility] Comment on above: Performed By: #### C BC #### [facility] [address] [place] [address] Dr. Ashlie Hills Erythrocyte distribution width (RBC) [Ratio] 14.9 % Normal 11.0-15.0 [facility] Comment on above: Performed By: #### C BC #### [facility] [address] [place] [address] Dr. Ashlie Hills Hematocrit (Bld) [Volume fraction] 46.2 % Normal 36.0-48.0 [facility] Comment on above: Performed By: #### C BC #### [facility] [address] [place] [place] [address] Dr. Ashlie Hills Hemoglobin (Bld) [Mass/Vol] 14.7 g/dL Normal 12.0-16.0 [facility] Comment on above: Performed By: #### C BC #### [facility] [address] [place] [address] Dr. Ashlie Hills IG # 0.06 10e3/ul Critically high 0.00-0.03 [facility] Comment on above: Performed By: #### C BC #### [facility] [address] [place] [address] Dr. Ashlie Hills IG % 0.4 % Normal 0.0-0.5 [facility] Comment on above: Performed By: #### C BC #### [facility] [address] [place] [place] [address] Dr. Ashlie Hills LYMPH # 1.3 103/ul Normal 1.2-3.8 [facility] Comment on above: Performed By: #### C BC #### [facility] [address] [place] [place] [address] Dr. Ashlie Hills Lymphocytes/100 WBC (Bld) 9.4 % Critically low 20.5-60.0 [facility] Comment on above: Performed By: #### C BC #### [facility] [address] [place] [place] [address] Dr. Ashlie Hills MANUAL DIFF REQ NO Normal [facility] Comment on above: Performed By: #### C BC #### [facility] [address] [place] [place] [address] Dr. Ashlie Hills MCH (RBC) [Entitic mass] 28.4 pg Normal 26.7-34.0 [facility] Comment on above: Performed By: #### C BC #### [facility] [address] [address] Dr. Ashlie Hills MCHC (RBC) [Mass/Vol] 31.8 g/dL Normal 29.9-35.2 [facility] Comment on above: Performed By: #### C BC #### [facility] [address] [address] Dr. Ashlie Hills MCV (RBC) [Entitic vol] 89.4 fL Normal 81.0-99.0 [facility] Comment on above: Performed By: #### C BC #### [facility] [address] [place] [address] Dr. Ashlie Hills MONO # 0.5 103/ul Normal 0.3-0.8 [facility] Comment on above: Performed By: #### C BC #### [facility] [address] [place] [address] Dr. Ashlie Hills Monocytes/100 WBC (Bld) 3.4 % Normal 1.7-12.0 [facility] Comment on above: Performed By: #### C BC #### [facility] [address] [address] [address] Ashlie Hills NEUT # 11.8 103/ul Critically high 1.4-6.5 [facility] Comment on above: Performed By: #### C BC #### [facility] [address] [address] [address] Ashlie Hills Neutrophils/100 WBC (Bld) 86.7 % Critically high 43.0-75.0 [facility] Comment on above: Performed By: #### C BC #### [facility] [address] [place] [address] Dr. Ashlie Hills Platelet mean volume (Bld) [Entitic vol] 12.6 fL Normal 9.5-13.5 [facility] Comment on above: Performed By: #### C BC #### [facility] [address] [place] [address] Dr. Ashlie Hills PLT 133 103/ul Critically low 150-450 [facility] Comment on above: Performed By: #### C BC #### [facility] [address] [place] [address] Dr. Ashlie Hills RBC 5.17 106/ul Normal 4.20-5.40 [facility] Comment on above: Performed By: #### C BC #### [facility] [address] [place] [address] Dr. Ashlie Hills WBC 13.6 103/ul Critically high 4.0-11.0 [facility] Comment on above: Performed By: #### C BC #### [facility] [address] [place] [address] Dr. Ashlie Hills MAGNESIUMon 12-06-2022 Magnesium [Mass/Vol] 2.2 mg/dL Normal 1.8-2.4 [facility] Comment on above: Performed By: #### I NFLUAB #### [facility] [address] [place] [address] Dr. Ashlie Hills POINT OF CARE GLUCOSEon -3 1-2023 Glucose [Mass/Vol] 340 mg/dL Critically high 74-106 [facility] Comment on above: Performed By: #### P OCGLUC #### [facility] [address] [place] [place] [address] Dr. Ashlie Hills Glucose [Mass/Vol] 276 mg/dL Critically high 74-106 [facility] Comment on above: Performed By: #### C BC #### [facility] [address] [place] [address] Dr. Ashlie Hills Glucose [Mass/Vol] 333 mg/dL Critically high -106 [facility] Comment on above: Performed By: #### C BC #### [facility] [address] [place] [address] Dr. Ashlie Hills PROF CHEM 8 (BAS METB)on Anion gap [Moles/Vol] 10.9 mmol/L Normal [facility] Comment on above: Performed By: #### I NFLUAB #### [facility] [address] [place] [address] Dr. Ashlie Hills Calcium [Mass/Vol] 9.3 mg/dL Normal 8.5-10.1 [facility] Comment on above: Performed By: #### I NFLUAB #### [facility] [address] [place] [place] [address] Dr. Ashlie Hills Chloride [Moles/Vol] 103 mmol/L Normal 98-107 [facility] Comment on above: Performed By: #### I NFLUAB #### [facility] [address] [place] [place] [address] Dr. Ashlie Hills CO2 [Moles/Vol] 31.2 mmol/L Normal 21.0-32.0 [facility] Comment on above: Performed By: #### I NFLUAB #### [facility] [address] [place] [address] Dr. Ashlie Hills Creatinine [Mass/Vol] 0.96 mg/dL Normal 0.55-1.02 [facility] Comment on above: Performed By: #### I NFLUAB #### [facility] [address] [place] [place] [address] Dr. Ashlie Hills EGFR-AF GERMAN >60 Normal >=60 [facility] Comment on above: Performed By: #### I NFLUAB #### [facility] [address] [place] [place] [address] Dr. Ashlie Hills EGFR-NON AF GERMAN >60 Normal >=60 [facility] Comment on above: Performed By: #### I NFLUAB #### [facility] [address] [place] [place] [address] Dr. Ashlie Hills Glucose [Mass/Vol] 288 mg/dL Critically high 74-106 [facility] Comment on above: Performed By: #### I NFLUAB #### [facility] [address] [place] [place] [address] Dr. Ashlie Hills Potassium [Moles/Vol] 5.1 mmol/L Normal 3.5-5.1 [facility] Comment on above: Performed By: #### I NFLUAB #### [facility] [address] [place] [place] [address] Dr. Ashlie Hills Sodium [Moles/Vol] 140 mmol/L Normal 136-145 [facility] Comment on above: Performed By: #### I NFLUAB #### [facility] [address] [place] [place] [address] Dr. Ashlie Hills Urea nitrogen [Mass/Vol] 30.0 mg/dL Critically high 7.0-18.0 [facility] Comment on above: Performed By: #### I NFLUAB #### [facility] [address] [place] [address] Dr. Ashlie Hills Urea nitrogen/Creatinine [Mass ratio] 31.2 mg/mg Normal [facility] Comment on above: Performed By: #### I NFLUAB #### [facility] [address] [place] [place] [address] Dr. Ashlie Hills CBC AUTO DIFFon 12-05-2022 BASO # 0.0 103/ul Normal 0.0-0.1 [facility] Comment on above: Performed By: #### C BC #### [facility] [address] [place] [address] Dr. Ashlie Hills Basophils/100 WBC (Bld) 0.4 % Normal 0.2-2.0 [facility] Comment on above: Performed By: #### C BC #### [facility] [address] [place] [place] [address] Dr. Ashlie Hills EO # 0.0 103/ul Normal 0.0-0.7 [facility] Comment on above: Performed By: #### C BC #### [facility] [address] [place] [place] [address] Dr. Ashlie Hills Eosinophils/100 WBC (Bld) 0.0 % Critically low 0.9-7.0 [facility] Comment on above: Performed By: #### C BC #### [facility] [address] [place] [address] Dr. Ashlie Hills Erythrocyte distribution width (RBC) [Ratio] 14.8 % Normal 11.0-15.0 [facility] Comment on above: Performed By: #### C BC #### [facility] [address] [place] [place] [address] Dr. Ashlie Hills Hematocrit (Bld) [Volume fraction] 49.9 % Critically high 36.0-48.0 [facility] Comment on above: Performed By: #### C BC #### [facility] [address] [place] [address] Dr. Ahslie Hills Hemoglobin (Bld) [Mass/Vol] 15.7 g/dL Normal 12.0-16.0 [facility] Comment on above: Performed By: #### C BC #### [facility] [address] [place] [address] Dr. Ashlie Hills IG # 0.04 10e3/ul Critically high 0.00-0.03 [facility] Comment on above: Performed By: #### C BC #### [facility] [address] [place] [address] Dr. Ashlie Hills IG % 0.5 % Normal 0.0-0.5 [facility] Comment on above: Performed By: #### C BC #### [facility] [address] [place] [place] [address] Dr. Ashlie Hills LYMPH # 1.1 103/ul Critically low 1.2-3.8 [facility] Comment on above: Performed By: #### C BC #### [facility] [address] [place] [address] Dr. Ashlie Hills Lymphocytes/100 WBC (Bld) 12.7 % Critically low 20.5-60.0 [facility] Comment on above: Performed By: #### C BC #### [facility] [address] [place] [address] Dr. Ashlie Hills MANUAL DIFF REQ NO Normal [facility] Comment on above: Performed By: #### C BC #### [facility] [address] [place] [address] Dr. Ashlie Hills MCH (RBC) [Entitic mass] 28.1 pg Normal 26.7-34.0 [facility] Comment on above: Performed By: #### C BC #### [facility] [address] [place] [address] Dr. Ashlie Hills MCHC (RBC) [Mass/Vol] 31.5 g/dL Normal 29.9-35.2 [facility] Comment on above: Performed By: #### C BC #### [facility] [address] [place] [address] Dr. Ashlie Hills MCV (RBC) [Entitic vol] 89.3 fL Normal 81.0-99.0 [facility] Comment on above: Performed By: #### C BC #### [facility] [address] [place] [address] Dr. Ashlie Hills MONO # 0.1 103/ul Critically low 0.3-0.8 [facility] Comment on above: Performed By: #### C BC #### [facility] [address] [place] [address] Dr. Ashlie Hills Monocytes/100 WBC (Bld) 1.3 % Critically low 1.7-12.0 [facility] Comment on above: Performed By: #### C BC #### [facility] [address] [place] [address] Dr. Ashlie Hills NEUT # 7.2 103/ul Critically high 1.4-6.5 [facility] Comment on above: Performed By: #### C BC #### [facility] [address] [place] [address] Dr. Ashlie Hills Neutrophils/100 WBC (Bld) 85.1 % Critically high 43.0-75.0 [facility] Comment on above: Performed By: #### C BC #### [facility] [address] [place] [place] [address] Dr. Ashlie Hills Platelet mean volume (Bld) [Entitic vol] 12.2 fL Normal 9.5-13.5 [facility] Comment on above: Performed By: #### C BC #### [facility] [address] [place] [address] Dr. Ashlie Hills PLT 116 103/ul Critically low 150-450 [facility] Comment on above: Performed By: #### C BC #### [facility] [address] [place] [address] Dr. Ashlie Hills RBC 5.59 106/ul Critically high 4.20-5.40 [facility] Comment on above: Performed By: #### C BC #### [facility] [address] [place] [address] Dr. Ashlie Hills WBC 8.5 103/ul Normal 4.0-11.0 [facility] Comment on above: Performed By: #### C BC #### [facility] [address] [place] [address] Dr. Ashlie Hills CTA CHEST WO W [...] by: HATTIE GOFF Date: 2022-12-05 01:52 Normal [facility] MAGNESIUMon 12-05-2022 Magnesium [Mass/Vol] 2.1 mg/dL Normal 1.8-2.4 [facility] Comment on above: Performed By: #### P OCGLUC #### [facility] [address] [address] [address] Ashlie Hills POINT OF CARE GLUCOSEon 11-08 Glucose [Mass/Vol] 293 mg/dL Critically high 74-106 [facility] Comment on above: Performed By: #### P OCGLUC #### [facility] [address] [place] [address] Dr. Ashlie Hills Glucose [Mass/Vol] 269 mg/dL Critically high 74-106 [facility] Comment on above: Performed By: #### P OCGLUC #### [facility] [address] [place] [address] Dr. Ashlie Hills Glucose [Mass/Vol] 223 mg/dL Critically high 74-106 [facility] Comment on above: Performed By: #### C VDAGS #### [facility] [address] [address] [address] Ashlie Hills PROF CHEM 8 (BAS METB)on Anion gap [Moles/Vol] 11.6 mmol/L Normal [facility] Comment on above: Performed By: #### P OCGLUC #### [facility] [address] [address] [address] Ashlie Hills Calcium [Mass/Vol] 9.2 mg/dL Normal 8.5-10.1 [facility] Comment on above: Performed By: #### P OCGLUC #### [facility] [address] [address] [address] Ashlie Hills Chloride [Moles/Vol] 102 mmol/L Normal 98-107 [facility] Comment on above: Performed By: #### P OCGLUC #### [facility] [address] [place] [address] Dr. Ashlie Hills CO2 [Moles/Vol] 28.7 mmol/L Normal 21.0-32.0 [facility] Comment on above: Performed By: #### P OCGLUC #### [facility] [address] [place] [address] Dr. Ashlie Hills Creatinine [Mass/Vol] 1.04 mg/dL Critically high 0.55-1.02 [facility] Comment on above: Performed By: #### P OCGLUC #### [facility] [address] [place] [address] Dr. Ashlie Hills EGFR-AF GERMAN >60 Normal >=60 [facility] Comment on above: Performed By: #### P OCGLUC #### [facility] [address] [place] [address] Dr. Ashlie Hills EGFR-NON AF GERMAN 56 mL/min/1.73m2 Critically low >=60 [facility] Comment on above: Performed By: #### P OCGLUC #### [facility] [address] [place] [address] Dr. Ashlie Hills Glucose [Mass/Vol] 231 mg/dL Critically high 74-106 [facility] Comment on above: Performed By: #### P OCGLUC #### [facility] [address] [place] [address] Dr. Ashlie Hills Potassium [Moles/Vol] 4.3 mmol/L Normal 3.5-5.1 [facility] Comment on above: Performed By: #### P OCGLUC #### [facility] [address] [place] [address] Dr. Ashlie Hills Sodium [Moles/Vol] 138 mmol/L Normal 136-145 [facility] Comment on above: Performed By: #### P OCGLUC #### [facility] [address] [place] [address] Dr. Ashlie Hills Urea nitrogen [Mass/Vol] 17.0 mg/dL Normal 7.0-18.0 [facility] Comment on above: Performed By: #### P OCGLUC #### [facility] [address] [place] [address] Dr. Ashlie Hills Urea nitrogen/Creatinine [Mass ratio] 16.3 mg/mg Normal [facility] Comment on above: Performed By: #### P OCGLUC #### [facility] [address] [place] [address] Dr. Ashlie Hills RESPIRATORY PANEL PLUSon Adenovirus Not detected Normal NOT DETECTED [facility] Comment on above: Performed By: #### C VDAGS #### [facility] [address] [place] [address] Dr. Ashlie Shaffer. Parapertusis Not detected Normal NOT DETECTED [facility] Comment on above: Performed By: #### C VDAGS #### [facility] [address] [place] [address] Dr. Ashlie Hills B. Pertussis Not detected Normal NOT DETECTED [facility] Comment on above: Performed By: #### C VDAGS #### [facility] [address] [place] [address] Dr. Ashlie Hills Chlamydia Pneumoniae Not detected Normal NOT DETECTED [facility] Comment on above: Performed By: #### C VDAGS #### [facility] [address] [place] [place] [address] Dr. Ashlie Hills Coronavirus 229E Not detected Normal NOT DETECTED [facility] Comment on above: Performed By: #### C VDAGS #### [facility] [address] [address] [address] Ashlie Hills Coronavirus HKU1 Not detected Normal NOT DETECTED [facility] Comment on above: Performed By: #### C VDAGS #### [facility] [address] [place] [address] Dr. Ashlie Hills Coronavirus NL63 Not detected Normal NOT DETECTED [facility] Comment on above: Performed By: #### C VDAGS #### [facility] [address] [place] [address] Dr. Ashlie Hills Coronavirus OC43 Not detected Normal NOT DETECTED [facility] Comment on above: Performed By: #### C VDAGS #### [facility] [address] [place] [address] Dr. Ashlie Hills Influenza A H1 Not detected Normal NOT DETECTED [facility] Comment on above: Performed By: #### C VDAGS #### [facility] [address] [place] [address] Dr. Ashlie Hills Influenza A H1 2009 Not detected Normal NOT DETECTED [facility] Comment on above: Performed By: #### C VDAGS #### [facility] [address] [place] [address] Dr. Ashlie Hills Influenza A H3 Not detected Normal NOT DETECTED [facility] Comment on above: Performed By: #### C VDAGS #### [facility] [address] [place] [address] Dr. Ashlie Hills Influenza B Not detected Normal NOT DETECTED [facility] Comment on above: Performed By: #### C VDAGS #### [facility] [address] [place] [address] Dr. Ashlie Hills Metapneumovirus Not detected Normal NOT DETECTED [facility] Comment on above: Performed By: #### C VDAGS #### [facility] [address] [place] [address] Dr. Ashlie Hills Mycoplas. Pneumoniae Not detected Normal NOT DETECTED [facility] Comment on above: Performed By: #### C VDAGS #### [facility] [address] [place] [address] Dr. Ashlie Hills Parainfluenza 1 Not detected Normal NOT DETECTED [facility] Comment on above: Performed By: #### C VDAGS #### [facility] [address] [place] [address] Dr. Ashlie Hills Parainfluenza 2 Not detected Normal NOT DETECTED [facility] Comment on above: Performed By: #### C VDAGS #### [facility] [address] [place] [address] Dr. Ashlie Hills Parainfluenza 3 Detected Abnormal NOT DETECTED [facility] Comment on above: Performed By: #### C VDAGS #### [facility] [address] [place] [address] Dr. Ashlie Hills Parainfluenza 4 Not detected Normal NOT DETECTED [facility] Comment on above: Performed By: #### C VDAGS #### [facility] [address] [place] [address] Dr. Ashlie Hills Rhino/Enterovirus Not detected Normal NOT DETECTED [facility] Comment on above: Performed By: #### C VDAGS #### [facility] [address] [place] [address] Dr. Ashlie Hills RP2 Header 1 RESPIRATORY PANEL: VIRUSES Normal [facility] Comment on above: Performed By: #### C VDAGS #### [facility] [address] [place] [address] Dr. Ashlie DE PAZ Header 2 RESPIRATORY PANEL: BACTERIA Normal [facility] Comment on above: Performed By: #### C VDAGS #### [facility] [address] [place] [address] Dr. Ashlie Hills RSV Not detected Normal NOT DETECTED [facility] Comment on above: Performed By: #### C VDAGS #### [facility] [address] [place] [address] Dr. Ashlie Hills SARS-CoV-2 (COVID-19) RNA MADDY+probe Ql (Unsp spec) Not detected Normal NOT DETECTED [facility] Comment on above: Performed By: #### C VDAGS #### [facility] [address] [place] [address] Dr. Ashlie Hills XR CHEST 1 Von [...] by: MARYANNE POWER Date: 2022-12-04 22:23 Normal [facility] BLOOD GASES BTYon 12-04-2022 02 MODE ROOM AIR Normal [facility] Comment on above: Performed By: #### C BC #### [facility] [address] [address] Dr. Ashlie Hills ALLENS TEST Positive Normal [facility] Comment on above: Performed By: #### C BC #### [facility] [address] [place] [address] Dr. Ashlie Hills Base excess Calc (Bld) [Moles/Vol] 5.4 mmol/L Critically high -2.0-2.0 [facility] Comment on above: Performed By: #### C BC #### [facility] [address] [place] [address] Dr. Ashlie Hills BIPAP PRESSURE Normal [facility] Comment on above: Performed By: #### C BC #### [facility] [address] [place] [address] Dr. Ashlie Hills CPAP Normal [facility] Comment on above: Performed By: #### C BC #### [facility] [address] [place] [address] Dr. Ashlie Hills FIO2 Normal [facility] Comment on above: Performed By: #### C BC #### [facility] [address] [place] [address] Dr. Ashlie Hills HCO3 (Bld) [Moles/Vol] 30.8 mmol/L Critically high 22.0-26 .0 [facility] Comment on above: Performed By: #### C BC #### [facility] [address] [address] Dr. Ashlie Hills LPM [facility] Comment on above: Performed By: #### C BC #### [facility] [address] [place] [address] Dr. Ashlie Hills MINUTE VOLUME Normal [facility] Comment on above: Performed By: #### C BC #### [facility] [address] [place] [address] Dr. Ashlie Hills Oxygen (Bld) [Partial pressure] 46.3 mm[Hg] Critically low 80.0-100.0 [facility] Comment on above: Performed By: #### C BC #### [facility] [address] [address] Dr. Ashlie Hills Oxygen saturation in Blood 83.9 % Critically low 95.0-100.0 [facility] Comment on above: Performed By: #### C BC #### [facility] [address] [place] [place] [address] Dr. Ashlie Hills PCO2 54.2 mmHg Critically high 35.0-45.0 [facility] Comment on above: Performed By: #### C BC #### [facility] [address] [address] Dr. Ashlie Hills PEEP [facility] Comment on above: Performed By: #### C BC #### [facility] [address] [place] [address] Dr. Ashlie Hills pH (Bld) 7.363 [pH] Normal 7.350-7.450 [facility] Comment on above: Performed By: #### C BC #### [facility] [address] [place] [address] Dr. Ashlie Hills PIP [facility] Comment on above: Performed By: #### C BC #### [facility] [address] [place] [address] Dr. Ashlie Hills PS [facility] Comment on above: Performed By: #### C BC #### [facility] [address] [place] [address] Dr. Ashlie Hills PUNCTURE SITE LR Normal [facility] Comment on above: Performed By: #### C BC #### [facility] [address] [place] [address] Dr. Ashlie Hills RATE [facility] Comment on above: Performed By: #### C BC #### [facility] [address] [place] [address] Dr. Ashlie Hills VENT MODE [facility] Comment on above: Performed By: #### C BC #### [facility] [address] [place] [address] Dr. Ashlie Hills [facility] Comment on above: Performed By: #### C BC #### [facility] [address] [place] [address] Dr. Ashlie Hills BNPon 12-04-2022 Natriuretic peptide B (Bld) [Mass/Vol] 76.0 pg/mL Normal <=900.0 [facility] Comment on above: Performed By: #### P OCGLUC #### [facility] [address] [place] [address] Dr. Ashlie Hills CBC AUTO DIFFon 12-04-2022 BASO # 0.1 103/ul Normal 0.0-0.1 [facility] Comment on above: Performed By: #### C BC #### [facility] [address] [place] [address] Dr. Ashlie Hills Basophils/100 WBC (Bld) 0.6 % Normal 0.2-2.0 [facility] Comment on above: Performed By: #### C BC #### [facility] [address] [place] [address] Dr. Ashlie Hills EO # 0.2 103/ul Normal 0.0-0.7 [facility] Comment on above: Performed By: #### C BC #### [facility] [address] [place] [address] Dr. Ashlie Hills Eosinophils/100 WBC (Bld) 1.9 % Normal 0.9-7.0 [facility] Comment on above: Performed By: #### C BC #### [facility] [address] [place] [address] Dr. Ashlie Hills Erythrocyte distribution width (RBC) [Ratio] 15.0 % Normal 11.0-15.0 [facility] Comment on above: Performed By: #### C BC #### [facility] [address] [address] Dr. Ashlie Hills Hematocrit (Bld) [Volume fraction] 49.1 % Critically high 36.0-48.0 [facility] Comment on above: Performed By: #### C BC #### [facility] [address] [place] [address] Dr. Ashlie Hills Hemoglobin (Bld) [Mass/Vol] 15.6 g/dL Normal 12.0-16.0 [facility] Comment on above: Performed By: #### C BC #### [facility] [address] [place] [address] Dr. Ashlie Hills IG # 0.02 10e3/ul Normal 0.00-0.03 [facility] Comment on above: Performed By: #### C BC #### [facility] [address] [place] [address] Dr. Ashlie Hills IG % 0.2 % Normal 0.0-0.5 [facility] Comment on above: Performed By: #### C BC #### [facility] [address] [place] [address] Dr. Ashlie Hills LYMPH # 2.8 103/ul Normal 1.2-3.8 [facility] Comment on above: Performed By: #### C BC #### [facility] [address] [place] [address] Dr. Ashlie Hills Lymphocytes/100 WBC (Bld) 29.9 % Normal 20.5-60.0 [facility] Comment on above: Performed By: #### C BC #### [facility] [address] [place] [address] Dr. Ashlie Hills MANUAL DIFF REQ NO Normal [facility] Comment on above: Performed By: #### C BC #### [facility] [address] [place] [address] Dr. Ashlie Hills MCH (RBC) [Entitic mass] 28.5 pg Normal 26.7-34.0 [facility] Comment on above: Performed By: #### C BC #### [facility] [address] [place] [address] Dr. Ashlie Hills MCHC (RBC) [Mass/Vol] 31.8 g/dL Normal 29.9-35.2 [facility] Comment on above: Performed By: #### C BC #### [facility] [address] [place] [place] [address] Dr. Ashlie Hills MCV (RBC) [Entitic vol] 89.8 fL Normal 81.0-99.0 [facility] Comment on above: Performed By: #### C BC #### [facility] [address] [place] [address] Dr. Ashlie Hills MONO # 1.0 103/ul Critically high 0.3-0.8 [facility] Comment on above: Performed By: #### C BC #### [facility] [address] [place] [address] Dr. Ashlie Hills Monocytes/100 WBC (Bld) 10.6 % Normal 1.7-12.0 [facility] Comment on above: Performed By: #### C BC #### [facility] [address] [place] [address] Dr. Ashlie Hills NEUT # 5.3 103/ul Normal 1.4-6.5 [facility] Comment on above: Performed By: #### C BC #### [facility] [address] [place] [address] Dr. Ashlie Hills Neutrophils/100 WBC (Bld) 56.8 % Normal 43.0-75.0 [facility] Comment on above: Performed By: #### C BC #### [facility] [address] [place] [address] Dr. Ashlie Hills Platelet mean volume (Bld) [Entitic vol] 12.5 fL Normal 9.5-13.5 [facility] Comment on above: Performed By: #### C BC #### [facility] [address] [address] [address] Ashlie Hills PLT 109 103/ul Critically low 150-450 [facility] Comment on above: Performed By: #### C BC #### [facility] [address] [place] [address] Dr. Ashlie Hills RBC 5.47 106/ul Critically high 4.20-5.40 [facility] Comment on above: Performed By: #### C BC #### [facility] [address] [place] [address] Dr. Ashlie Hills WBC 9.4 103/ul Normal 4.0-11.0 [facility] Comment on above: Performed By: #### C BC #### [facility] [address] [place] [address] Dr. Ashlie Hills PROF 14(COMP METB)on 023 Albumin [Mass/Vol] 2.9 g/dL Critically low 3.4-5.0 [facility] Comment on above: Performed By: #### C BC #### [facility] [address] [place] [address] Dr. Ashlie Hills Albumin/Globulin [Mass ratio] 0.6 {ratio} Normal [facility] Comment on above: Performed By: #### C BC #### [facility] [address] [place] [address] Dr. Ashlie Hills ALP [Catalytic activity/Vol] 64 U/L Normal 46-116 [facility] Comment on above: Performed By: #### C BC #### [facility] [address] [place] [address] Dr. Ashlie Hills ALT [Catalytic activity/Vol] 16 U/L Normal 14-59 [facility] Comment on above: Performed By: #### C BC #### [facility] [address] [place] [address] Dr. Ashlie Hills Anion gap [Moles/Vol] 9.6 mmol/L Normal [facility] Comment on above: Performed By: #### C BC #### [facility] [address] [place] [address] Dr. Ashlie Hills AST [Catalytic activity/Vol] 16 U/L Normal 15-37 [facility] Comment on above: Performed By: #### C BC #### [facility] [address] [place] [address] Dr. Ashlie Hills Bilirubin [Mass/Vol] 0.5 mg/dL Normal 0.2-1.0 [facility] Comment on above: Performed By: #### C BC #### [facility] [address] [place] [address] Dr. Ashlie Hills Calcium [Mass/Vol] 8.7 mg/dL Normal 8.5-10.1 [facility] Comment on above: Performed By: #### C BC #### [facility] [address] [place] [address] Dr. Ashlie Hills Chloride [Moles/Vol] 103 mmol/L Normal 98-107 [facility] Comment on above: Performed By: #### C BC #### [facility] [address] [place] [address] Dr. Ashlie Hills CO2 [Moles/Vol] 30.7 mmol/L Normal 21.0-32.0 [facility] Comment on above: Performed By: #### C BC #### [facility] [address] [place] [address] Dr. Ashlie Hills Creatinine [Mass/Vol] 0.96 mg/dL Normal 0.55-1.02 [facility] Comment on above: Performed By: #### C BC #### [facility] [address] [place] [address] Dr. Ashlie Hills EGFR-AF GERMAN >60 Normal >=60 [facility] Comment on above: Performed By: #### C BC #### [facility] [address] [place] [address] Dr. Ashlie Hills EGFR-NON AF GERMAN >60 Normal >=60 [facility] Comment on above: Performed By: #### C BC #### [facility] [address] [place] [address] Dr. Ashlie Hills Globulin (S) [Mass/Vol] 4.7 g/dL Normal [facility] Comment on above: Performed By: #### C BC #### [facility] [address] [address] [address] Ashlie Hills Glucose [Mass/Vol] 170 mg/dL Critically high 74-106 [facility] Comment on above: Performed By: #### C BC #### [facility] [address] [address] [address] Ashlie Hills Potassium [Moles/Vol] 4.3 mmol/L Normal 3.5-5.1 [facility] Comment on above: Performed By: #### C BC #### [facility] [address] [address] [address] Ashlie Hills Protein [Mass/Vol] 7.6 g/dL Normal 6.4-8.2 [facility] Comment on above: Performed By: #### C BC #### [facility] [address] [place] [address] Dr. Ashlie Hills Sodium [Moles/Vol] 139 mmol/L Normal 136-145 [facility] Comment on above: Performed By: #### C BC #### [facility] [address] [place] [address] Dr. Ashlie Hills Urea nitrogen [Mass/Vol] 16.0 mg/dL Normal 7.0-18.0 [facility] Comment on above: Performed By: #### C BC #### [facility] [address] [place] [address] Dr. Ashlie Hills Urea nitrogen/Creatinine [Mass ratio] 16.7 mg/mg Normal [facility] Comment on above: Performed By: #### C BC #### [facility] [address] [address] Dr. Ashlie Hills SYMPTOMATIC COVID-19 ANTIGEN on 12-04-2022 EUA Statement SEE BELOW Normal [facility] Comment on above: Result [...] VDAGS #### [facility] [address] [place] [address] Dr. Ashlie Hills SARS-CoV-2 (COVID-19) RNA MADDY+probe Ql (Unsp spec) Negative Normal NEGATIVE [facility] Comment on above: Performed By: #### C VDAGS #### [facility] [address] [place] [address] Dr. Ashlie Hills TROPONIN, HIGH SENSITIVITYon 12-04-2022 HSTROP 8.9 pg/mL Normal 4.0-51.3 [facility] Comment on above: Result Comment: CUT- OFF POINTS HAVE BEEN ESTABLISHED BASED ON THE FOURTH UNIVERSAL DEFINITIONS OF MYOCARDIAL INFARCTION. THE UPPER REFERENCE LIMIT (URL) OF TROPONIN, DEFINED THE 99TH PERCENTILE OF cTnI DISTRIBUTION IN A REFERENCE POPULATION, HAS BEEN CONFIRMED THE DECISION THRESHOLD FOR NM DIAGNOSIS. Performed By: #### P OCGLUC #### [facility] [address] [place] [address] Dr. Ashlie Hills MICROALBUMIN, RAND URon 05- mALB 35.8 mg/dL Critically high <=30.0 [facility] Comment on above: Performed By: #### C VDAGS #### [facility] [address] [place] [address] Dr. Ashlie Hills UA RANDOM W/MICROSCOPICon BACTERIA NONE SEEN Normal NONE SEEN [facility] Comment on above: Performed By: #### C VDAGS #### [facility] [address] [place] [address] Dr. Ashlie Hills Bilirubin Ql (U) Negative Normal NEGATIVE [facility] Comment on above: Performed By: #### C VDAGS #### [facility] [address] [place] [address] Dr. Ashlie Hills CAST SEEN Abnormal NONE SEEN [facility] Comment on above: Performed By: #### C VDAGS #### [facility] [address] [place] [address] Dr. Ashlie Hills Clarity (U) CLEAR Normal CLEAR [facility] Comment on above: Performed By: #### C VDAGS #### [facility] [address] [place] [address] Dr. Ashlie Hills Color (U) YELLOW Normal YELLOW [facility] Comment on above: Performed By: #### C VDAGS #### [facility] [address] [place] [address] Dr. Ashlie Hills Crystals LM Nom (Urine sed) NONE SEEN Normal NONE SEEN [facility] Comment on above: Performed By: #### C VDAGS #### [facility] [address] [place] [address] Dr. Ashlie Hills Epithelial cells LM Ql (Urine sed) MODERATE Abnormal NONE SEEN /RARE [facility] Comment on above: Performed By: #### C VDAGS #### [facility] [address] [place] [address] Dr. Ashlie Hills Glucose Ql (U) Negative Normal NEGATIVE [facility] Comment on above: Performed By: #### C VDAGS #### [facility] [address] [place] [address] Dr. Ashlie Hills Hemoglobin Ql (U) TRACE-INTACT Abnormal NEGATIVE [facility] Comment on above: Performed By: #### C VDAGS #### [facility] [address] [place] [address] Dr. Ashlie Hills Ketones Ql (U) Negative Normal NEGATIVE [facility] Comment on above: Performed By: #### C VDAGS #### [facility] [address] [place] [address] Dr. Ashlie Hills LEUKOCYTES Negative Normal NEGATIVE [facility] Comment on above: Performed By: #### C VDAGS #### [facility] [address] [place] [address] Dr. Ashlie Hills MUCOUS NONE SEEN Normal NONE SEEN [facility] Comment on above: Performed By: #### C VDAGS #### [facility] [address] [place] [address] Dr. Ashlie Hills Nitrite Ql (U) Negative Normal NEGATIVE [facility] Comment on above: Performed By: #### C VDAGS #### [facility] [address] [address] Dr. Ashlie Hills pH (U) 5.0 [pH] Normal 5-9 [facility] Comment on above: Performed By: #### C VDAGS #### [facility] [address] [place] [address] Dr. Ashlie Hills RBC 0-2 Normal 0-2 [facility] Comment on above: Performed By: #### C VDAGS #### [facility] [address] [place] [address] Dr. Ashlie Hills SPEC GRAVITY 1.030 Abnormal 1.005-<=1.025 [facility] Comment on above: Performed By: #### C VDAGS #### [facility] [address] [place] [address] Dr. Ashlie Hills UA PROTEIN 100 mg/dl Abnormal NEGATIVE/ TRACE [facility] Comment on above: Performed By: #### C VDAGS #### [facility] [address] [place] [address] Dr. Ashlie Hills Urobilinogen Qn (U) 0.2 {Little'U}/dL Normal 0.2 - 1. 0 [facility] Comment on above: Performed By: #### C VDAGS #### [facility] [address] [place] [address] Dr. Ashlie Hills WBC NONE SEEN Normal NONE SEEN [facility] Comment on above: Performed By: #### C VDAGS #### [facility] [address] [address] Dr. Ashlie Hills CBC AUTO DIFFon 11-22-2022 BASO # 0.0 103/ul Normal 0.0-0.1 [facility] Comment on above: Performed By: #### C BC #### [facility] [address] [address] [address] Ashlie Hills Basophils/100 WBC (Bld) 0.3 % Normal 0.2-2.0 [facility] Comment on above: Performed By: #### C BC #### [facility] [address] [address] Dr. Ashlie Hills EO # 0.4 103/ul Normal 0.0-0.7 [facility] Comment on above: Performed By: #### C BC #### [facility] [address] [place] [address] Dr. Ashlie Hills Eosinophils/100 WBC (Bld) 3.0 % Normal 0.9-7.0 [facility] Comment on above: Performed By: #### C BC #### [facility] [address] [address] Dr. Ashlie Hills Erythrocyte distribution width (RBC) [Ratio] 15.3 % Critically high 11.0-15.0 [facility] Comment on above: Performed By: #### C BC #### [facility] [address] [address] Dr. Ashlie Hills Hematocrit (Bld) [Volume fraction] 52.4 % Critically high 36.0-48.0 [facility] Comment on above: Performed By: #### C BC #### [facility] [address] [address] Dr. Ashlie Hills Hemoglobin (Bld) [Mass/Vol] 16.8 g/dL Critically high 12.0-16.0 [facility] Comment on above: Performed By: #### C BC #### [facility] [address] [place] [address] Dr. Ashlie Hills IG # 0.04 10e3/ul Critically high 0.00-0.03 [facility] Comment on above: Performed By: #### C BC #### [facility] [address] [place] [address] Dr. Ashlie Hills IG % 0.3 % Normal 0.0-0.5 [facility] Comment on above: Performed By: #### C BC #### [facility] [address] [address] [address] Ashlie Hills LYMPH # 4.5 103/ul Critically high 1.2-3.8 [facility] Comment on above: Performed By: #### C BC #### [facility] [address] [address] [address] Ashlie Hills Lymphocytes/100 WBC (Bld) 33.2 % Normal 20.5-60.0 [facility] Comment on above: Performed By: #### C BC #### [facility] [address] [address] Dr. Ashlie Hills MANUAL DIFF REQ NO Normal [facility] Comment on above: Performed By: #### C BC #### [facility] [address] [place] [address] Dr. Ashlie Hills MCH (RBC) [Entitic mass] 28.0 pg Normal 26.7-34.0 [facility] Comment on above: Performed By: #### C BC #### [facility] [address] [place] [address] Dr. Ashlie Hills MCHC (RBC) [Mass/Vol] 32.1 g/dL Normal 29.9-35.2 [facility] Comment on above: Performed By: #### C BC #### [facility] [address] [place] [address] Dr. Ashlie Hills MCV (RBC) [Entitic vol] 87.3 fL Normal 81.0-99.0 [facility] Comment on above: Performed By: #### C BC #### [facility] [address] [place] [address] Dr. Ashlie Hills MONO # 0.8 103/ul Normal 0.3-0.8 [facility] Comment on above: Performed By: #### C BC #### [facility] [address] [place] [address] Dr. Ashlie Hills Monocytes/100 WBC (Bld) 5.7 % Normal 1.7-12.0 [facility] Comment on above: Performed By: #### C BC #### [facility] [address] [address] [address] Ashlie Hills NEUT # 7.8 103/ul Critically high 1.4-6.5 [facility] Comment on above: Performed By: #### C BC #### [facility] [address] [address] [address] Ashlie Hills Neutrophils/100 WBC (Bld) 57.5 % Normal 43.0-75.0 [facility] Comment on above: Performed By: #### C BC #### [facility] [address] [address] [address] Ashlie Hills Platelet mean volume (Bld) [Entitic vol] 12.0 fL Normal 9.5-13.5 [facility] Comment on above: Performed By: #### C BC #### [facility] [address] [address] [address] Ashlie Hills PLT 152 103/ul Normal 150-450 [facility] Comment on above: Performed By: #### C BC #### [facility] [address] [address] [address] Ashlie Hills RBC 6.00 106/ul Critically high 4.20-5.40 [facility] Comment on above: Performed By: #### C BC #### [facility] [address] [address] [address] Ashlie Hills WBC 13.6 103/ul Critically high 4.0-11.0 [facility] Comment on above: Performed By: #### C BC #### [facility] [address] [address] [address] Ashlie Hills LIPID PROFILEon 11-22-2022 CHOL-HDL RATIO NORM SEE BELOW Normal [facility] Comment on above: Result Comment: 3.3 - 4.4 LOW RISK 4.4 - 7.1 AVERAGE RISK 7.1 - 11.0 MODERATE RISK >11.0 HIGH RISK Performed By: #### C BC #### [facility] [address] [address] [address] Ashlie Hills Cholesterol [Mass/Vol] 139 mg/dL Normal <=200 Th [facility] Comment on above: Performed By: #### C BC #### [facility] [address] [address] [address] Ashlie Hills Cholesterol in HDL [Mass/Vol] 35 mg/dL Critically low 40-60 [facility] Comment on above: Performed By: #### C BC #### [facility] [address] [id number] Ashlie Hills Cholesterol in LDL [Mass/Vol] 67.4 mg/dL Normal [facility] Comment on above: Performed By: #### C BC #### [facility] [address] [address] [address] Ashlie Hills Cholesterol.total/Chol esterol in HDL [Mass ratio] 4.0 {ratio} Normal [facility] Comment on above: Performed By: #### C BC #### [facility] [address] [address] [address] Ashlie [place] HDL NORMAL > or = 60 mg/dl - LOW CARDIOVASCULAR RISK <40 mg/dl - HIGH CARDIOVASCULAR RISK Normal [facility] Comment on above: Performed By: #### C BC #### [facility] [address] [address] [address] Ashlie [place] LDL CALC NORMAL SEE BELOW Normal [facility] Comment on above: Result Comment: <100 mg/dl OPTIMAL 100 - 129 mg/dl NEAR OR ABOVE OPTIMAL 130 - 159 mg/dl BORDERLINE HIGH 160 - 189 mg/dl HIGH >190 mg/dl VERY HIGH Performed By: #### C BC #### [facility] [address] [address] [address] Ashlie Hills Triglyceride [Mass/Vol] 183 mg/dL Critically high <=150 The [facility] Comment on above: Performed By: #### C BC #### [facility] [address] [address] [address] Ashlie [place] VLDL CALC 36.6 mg/dL Normal [facility] Comment on above: Performed By: #### C BC #### [facility] [address] [address] [address] Ashlie Hills MG MAMM SCREEN 3D ALEX CADon 11-22-2022 MG MAMM SCREEN 3D ALEX CAD Patient: MITZI MACIAS Exam Date: 11/22/2022 : 1970 Gender:F Ordering : SAYDA MCKAYLA [employer] Admission #: [id number] Family : Order #: [id number] CLICK HERE TO VIEW EXAM RADIOLOGY REPORT [...] Veloz M.D. on 11/22/2022 at 12:09 Normal [facility] PROF 14(COMP METB)on 023 Albumin [Mass/Vol] 3.0 g/dL Critically low 3.4-5.0 Th e [facility] Comment on above: Performed By: #### C BC #### [facility] [address] [address] [address] Ashlie [place] Albumin/Globulin [Mass ratio] 0.6 {ratio} Normal [facility] Comment on above: Performed By: #### C BC #### [facility] [address] [place], [place] [address] Dr. Ashlie Hills ALP [Catalytic activity/Vol] 68 U/L Normal 46-116 [facility] Comment on above: Performed By: #### C BC #### [facility] [address] [address] Dr. Ashlie Hills ALT [Catalytic activity/Vol] 14 U/L Normal 14-59 [facility] Comment on above: Performed By: #### C BC #### [facility] [address] [address] [address] Ashlie Hills Anion gap [Moles/Vol] 12.1 mmol/L Normal Th [facility] Comment on above: Performed By: #### C BC #### [facility] [address] [address] [address] Ashlie Hills AST [Catalytic activity/Vol] 9 U/L Critically low 15-37 [facility] Comment on above: Performed By: #### C BC #### [facility] [address] [address] [address] Ashlie [place] Bilirubin [Mass/Vol] 0.4 mg/dL Normal 0.2-1.0 [facility] Comment on above: Performed By: #### C BC #### [facility] [address] [address] [address] Ashlie [place] Calcium [Mass/Vol] 9.0 mg/dL Normal 8.5-10.1 [facility] Comment on above: Performed By: #### C BC #### [facility] [address] [address] [address] Ashlie [place] Chloride [Moles/Vol] 105 mmol/L Normal 98-107 [facility] Comment on above: Performed By: #### C BC #### [facility] [address] [address] [address] Ashlie Hills CO2 [Moles/Vol] 30.7 mmol/L Normal 21.0-32.0 [facility] Comment on above: Performed By: #### C BC #### [facility] [address] [address] [address] Ashlie [place] Creatinine [Mass/Vol] 0.77 mg/dL Normal 0.55-1.02 [facility] Comment on above: Performed By: #### C BC #### [facility] [address] [address] [address] Ashlie [place] EGFR-AF GERMAN >60 Normal >=60 [facility] Comment on above: Performed By: #### C BC #### [facility] [address] [address] [address] Ashlie [place] EGFR-NON AF GERMAN >60 Normal >=60 [facility] Comment on above: Performed By: #### C BC #### [facility] [address] [address] [address] Ashlie [place] Globulin (S) [Mass/Vol] 4.8 g/dL Normal [facility] Comment on above: Performed By: #### C BC #### [facility] [address] [address] [address] Ashlie [place] Glucose [Mass/Vol] 162 mg/dL Critically high 74-106 [facility] Comment on above: Performed By: #### C BC #### [facility] [address] [address] [address] Ashlie [place] Potassium [Moles/Vol] 3.8 mmol/L Normal 3.5-5.1 [facility] Comment on above: Performed By: #### C BC #### [facility] [address] [address] [address] Ashlie [place] Protein [Mass/Vol] 7.8 g/dL Normal 6.4-8.2 [facility] Comment on above: Performed By: #### C BC #### [facility] [address] [address] [address] Ashlie [place] Sodium [Moles/Vol] 144 mmol/L Normal 136-145 [facility] Comment on above: Performed By: #### C BC #### [facility] [address] [address] [address] Ashlie [place] Urea nitrogen [Mass/Vol] 24.0 mg/dL Critically high 7.0-18.0 [facility] Comment on above: Performed By: #### C BC #### [facility] [address] [place] [address] Dr. Ashlie [place] Urea nitrogen/Creatinine [Mass ratio] 31.2 mg/mg Normal [facility] Comment on above: Performed By: #### C BC #### [facility] [address] [place], [place] [id number] Dr. Ashlie Hills CBC AUTO DIFFon 10-05-2022 BASO # 0.1 103/ul Normal 0.0-0.1 [facility] Comment on above: Performed By: #### C BC #### [facility] [address] [place] [address] Dr. Ashlie Hills Basophils/100 WBC (Bld) 0.6 % Normal 0.2-2.0 [facility] Comment on above: Performed By: #### C BC #### [facility] [address] [place] [address] Dr. Ashlie Hills EO # 0.3 103/ul Normal 0.0-0.7 [facility] Comment on above: Performed By: #### C BC #### [facility] [address] [place] [place] [address] Dr. Ashlie [place] Eosinophils/100 WBC (Bld) 2.1 % Normal 0.9-7.0 [facility] Comment on above: Performed By: #### C BC #### [facility] [address] [place] [address] Dr. Ashlie [place] Erythrocyte distribution width (RBC) [Ratio] 15.9 % Critically high 11.0-15.0 The [facility] Comment on above: Performed By: #### C BC #### [facility] [address] [place] [address] Dr. Ashlie Hills Hematocrit (Bld) [Volume fraction] 51.8 % Critically high 36.0-48.0 [facility] Comment on above: Performed By: #### C BC #### [facility] [address] [place] [address] Dr. Ashlie [place] Hemoglobin (Bld) [Mass/Vol] 16.6 g/dL Critically high 12.0-16.0 [facility] Comment on above: Performed By: #### C BC #### [facility] [address] [place] [address] Dr. Ashlie Hills IG # 0.03 10e3/ul Normal 0.00-0.03 [facility] Comment on above: Performed By: #### C BC #### [facility] [address] [place] [address] Dr. Ashlie Hills IG % 0.2 % Normal 0.0-0.5 [facility] Comment on above: Performed By: #### C BC #### [facility] [address] [place] [place] [address] Dr. Ashlie Hills LYMPH # 3.9 103/ul Critically high 1.2-3.8 [facility] Comment on above: Performed By: #### C BC #### [facility] [address] [place] [address] Dr. Ashlie Hills Lymphocytes/100 WBC (Bld) 31.7 % Normal 20.5-60.0 [facility] Comment on above: Performed By: #### C BC #### [facility] [address] [place] [place] [address] Dr. Ashlie Hills MANUAL DIFF REQ NO Normal [facility] Comment on above: Performed By: #### C BC #### [facility] [address] [place] [address] Dr. Ashlie Hills MCH (RBC) [Entitic mass] 27.9 pg Normal 26.7-34.0 [facility] Comment on above: Performed By: #### C BC #### [facility] [address] [place] [address] Dr. Ashlie [place] MCHC (RBC) [Mass/Vol] 32.0 g/dL Normal 29.9-35.2 [facility] Comment on above: Performed By: #### C BC #### [facility] [address] [place] [place] [address] Dr. Ashlie Hills MCV (RBC) [Entitic vol] 87.1 fL Normal 81.0-99.0 [facility] Comment on above: Performed By: #### C BC #### [facility] [address] [place] [address] Dr. Ashlie Hills MONO # 0.7 103/ul Normal 0.3-0.8 [facility] Comment on above: Performed By: #### C BC #### [facility] [address] [place] [place] [address] Dr. Ashlie Hills Monocytes/100 WBC (Bld) 5.8 % Normal 1.7-12.0 [facility] Comment on above: Performed By: #### C BC #### [facility] [address] [place] [address] Dr. Ashlie Hills NEUT # 7.3 103/ul Critically high 1.4-6.5 [facility] Comment on above: Performed By: #### C BC #### [facility] [address] [place] [place] [address] Dr. [place] Neutrophils/100 WBC (Bld) 59.6 % Normal 43.0-75.0 [facility] Comment on above: Performed By: #### C BC #### [facility] [address] [place] [place] [address] Dr. Ashlie [place] Platelet mean volume (Bld) [Entitic vol] 11.7 fL Normal 9.5-13.5 [facility] Comment on above: Performed By: #### C BC #### [facility] [address] [place] [place] [address] Dr. Ashlie Hills PLT 117 103/ul Critically low 150-450 [facility] Comment on above: Performed By: #### C BC #### [facility] [address] [place] [place] [address] Dr. Ashlie [place] RBC 5.95 106/ul Critically high 4.20-5.40 [facility] Comment on above: Performed By: #### C BC #### [facility] [address] [place] [address] Dr. Ashlie [place] WBC 12.3 103/ul Critically high 4.0-11.0 [facility] Comment on above: Performed By: #### C BC #### [facility] [address] [place] [address] ABD/PELV W CONon [...] PICKARD Date: 2022-10-05 13:13 Normal [facility] URINE PROFILEon 3 Bilirubin Ql (U) Negative Normal NEGATIVE [facility] Comment on above: Performed By: #### P OCGLUC #### [facility] [address] [address] [address] Ashlie [place] Clarity (U) CLEAR Normal CLEAR [facility] Comment on above: Performed By: #### P OCGLUC #### [facility] [address] [address] [address] Ashlie [place] Color (U) YELLOW Normal YELLOW [facility] Comment on above: Performed By: #### P OCGLUC #### [facility] [address] [place] [address] Dr. Ashlie [place] ERUAHD A micrscopic examination will be performed if indicated. Normal [facility] Comment on above: Performed By: #### P OCGLUC #### [facility] [address] [address] [address] Ashlie [place] Glucose Ql (U) Negative Normal NEGATIVE [facility] Comment on above: Performed By: #### P OCGLUC #### [facility] [address] [address] [address] Ashlie [place] Hemoglobin Ql (U) Negative Normal NEGATIVE [facility] Comment on above: Performed By: #### P OCGLUC #### [facility] [address] [address] [address] Ashlie [place] Ketones Ql (U) Negative Normal NEGATIVE [facility] Comment on above: Performed By: #### P OCGLUC #### [facility] [address] [address] [address] Ashlie [place] LEUKOCYTES Negative Normal NEGATIVE [facility] Comment on above: Performed By: #### P OCGLUC #### [facility] [address] [address] [address] Ashlie [place] Nitrite Ql (U) Negative Normal NEGATIVE [facility] Comment on above: Performed By: #### P OCGLUC #### [facility] [address] [address] [address] Ashlie [place] pH (U) 6.0 [pH] Normal 5-9 [facility] Comment on above: Performed By: #### P OCGLUC #### [facility] [address] [place] [address] Dr. Ashlie [place] Protein (U) [Mass/Vol] 100 mg/dL Abnormal NEGAT YURY/ TRACE [facility] Comment on above: Performed By: #### P OCGLUC #### [facility] [address] [place] [address] Dr. Ashlie Hills SPEC GRAVITY 1.010 Normal 1.005-<=1.025 [facility] Comment on above: Performed By: #### P OCGLUC #### [facility] [address] [place] [address] Dr. Ashlie [place] UR MICRO IND INDICATED Normal [facility] Comment on above: Performed By: #### P OCGLUC #### [facility] [address] [address] [address] Ashlie [place] Urobilinogen Qn (U) 1.0 {Little'U}/dL Normal 0.2 - 1. 0 [facility] Comment on above: Performed By: #### P OCGLUC #### [facility] [address] [place] [address] Dr. Ashlie [place] LIPASEon 10-05-2022 Lipase [Catalytic activity/Vol] 1771.0 U/L Critically high 73.0-393.0 [facility] Comment on above: Performed By: #### C BC #### [facility] [address] [place] [address] Dr. Ashlie [place] PREG HCG QUALon 10-05-2022 , QUAL Negative Normal NEGATIVE [facility] Comment on above: Performed By: #### P OCGLUC #### [facility] [address] [place] [address] Dr. Ashlie [place] PROF 14(COMP METB)on 023 Albumin [Mass/Vol] 3.2 g/dL Critically low 3.4-5.0 [facility] Comment on above: Performed By: #### C BC #### [facility] [address] [place] [address] Dr. Ashlie [place] Albumin/Globulin [Mass ratio] 0.7 {ratio} Normal [facility] Comment on above: Performed By: #### C BC #### [facility] [address] [place] [address] Dr. Ashlie [place] ALP [Catalytic activity/Vol] 70 U/L Normal 46-116 [facility] Comment on above: Performed By: #### C BC #### [facility] [address] [place] [address] Dr. Ashlie [place] ALT [Catalytic activity/Vol] 11 U/L Critically low 14-59 [facility] Comment on above: Performed By: #### C BC #### [facility] [address] [place] [address] Dr. Ashlie [place] Anion gap [Moles/Vol] 10.3 mmol/L Normal [facility] Comment on above: Performed By: #### C BC #### [facility] [address] [address] [address] Ashlie [place] AST [Catalytic activity/Vol] 11 U/L Critically low 15-37 [facility] Comment on above: Performed By: #### C BC #### [facility] [address] [address] [address] [place]lie [place] Bilirubin [Mass/Vol] 0.9 mg/dL Normal 0.2-1.0 [facility] Comment on above: Performed By: #### C BC #### [facility] [address] [address] [address] Ashlie [place] Calcium [Mass/Vol] 9.3 mg/dL Normal 8.5-10.1 [facility] Comment on above: Performed By: #### C BC #### [facility] [address] [place] [address] Dr. Ashlie [place] Chloride [Moles/Vol] 105 mmol/L Normal 98-107 [facility] Comment on above: Performed By: #### C BC #### [facility] [address] [address] [address] [place]lie [place] CO2 [Moles/Vol] 30.6 mmol/L Normal 21.0-32.0 [facility] Comment on above: Performed By: #### C BC #### [facility] [address] [address] [address] [place]lie [place] Creatinine [Mass/Vol] 0.62 mg/dL Normal 0.55-1.02 [facility] Comment on above: Performed By: #### C BC #### [facility] [address] [address] [address] [place]lie [place] EGFR-AF GERMAN >60 Normal >=60 [facility] Comment on above: Performed By: #### C BC #### [facility] [address] [address] [address] [place]lie [place] EGFR-NON AF GERMAN >60 Normal >=60 [facility] Comment on above: Performed By: #### C BC #### [facility] [address] [address] [address] Ashlie [place] Globulin (S) [Mass/Vol] 4.6 g/dL Normal [facility] Comment on above: Performed By: #### C BC #### [facility] [address] [address] [address] [place]lie [place] Glucose [Mass/Vol] 85 mg/dL Normal 74-106 [facility] Comment on above: Performed By: #### C BC #### [facility] [address] [address] [address] [place]lie [place] Potassium [Moles/Vol] 3.9 mmol/L Normal 3.5-5.1 [facility] Comment on above: Performed By: #### C BC #### [facility] [address] [place] [place] [address] Dr. Ashlie [place] Protein [Mass/Vol] 7.8 g/dL Normal 6.4-8.2 [facility] Comment on above: Performed By: #### C BC #### [facility] [address] [place] [address] Dr. Ashlie [place] Sodium [Moles/Vol] 142 mmol/L Normal 136-145 [facility] Comment on above: Performed By: #### C BC #### [facility] [address] [place] [address] Dr. [place]lie [place] Urea nitrogen [Mass/Vol] 12.0 mg/dL Normal 7.0-18.0 [facility] Comment on above: Performed By: #### C BC #### [facility] [address] [place] [address] Dr. [place]lie [place] Urea nitrogen/Creatinine [Mass ratio] 19.4 mg/mg Normal [facility] Comment on above: Performed By: #### C BC #### [facility] [address] [place] [place] [address] Dr. Ashlie [place] URINE MICROSCOPIC ONLYon BACTERIA TRACE Abnormal NONE SEEN [facility] Comment on above: Performed By: #### P OCGLUC #### [facility] [address] [place] [address] Dr. Ashlie [place] Bacteria identified Cx Nom (U) NOT INDICATED Normal [facility] Comment on above: Performed By: #### P OCGLUC #### [facility] [address] [place] [address] Dr. Ashlie [place] CAST NONE SEEN Normal NONE SEEN [facility] Comment on above: Performed By: #### P OCGLUC #### [facility] [address] [place] [address] Dr. Ashlie [place] Crystals LM Nom (Urine sed) NONE SEEN Normal NONE SEEN [facility] Comment on above: Performed By: #### P OCGLUC #### [facility] [address] [place] [address] Dr. Ashlie [place] Epithelial cells LM Ql (Urine sed) MODERATE Abnormal NONE SEEN /RARE [facility] Comment on above: Performed By: #### P OCGLUC #### [facility] [address] [place] [place] [address] Dr. Ashlie Hills MUCOUS NONE SEEN Normal NONE SEEN [facility] Comment on above: Performed By: #### P OCGLUC #### [facility] [address] [place] [address] Dr. Ashlie [place] RBC 0-2 Normal 0-2 [facility] Comment on above: Performed By: #### P OCGLUC #### [facility] [address] [place] [place] [address] Dr. Ashlie [place] WBC 0-2 Abnormal NONE SEEN [facility] Comment on above: Performed By: #### P OCGLUC #### [facility] [address] [place] [address] Dr. Ashlie [place] Covid-19 PCR ([facility])on 09-06 SARS-CoV-2 (COVID-19) RNA MADDY+probe Ql [...] for this test is supported by the Network Coordinator of Health and Human Service's declaration that [...] VDAGS #### [facility] [address] [place] [address] Dr. Ashlie Hills INFLUENZA A AND B AGon 09-21 [facility] SEE BELOW Normal [facility] Comment on above: Result Comment: Nega tive for Flu A protein angiten. Infection due to Flu A cannot be ruled out. Flu A angiten in the sample may be below the detection limit of the test. Performed By: #### I NFLUAB #### [facility] [address] [address] Dr. Ashlie [place] [facility] SEE BEL[facility] Normal [facility] Comment on above: Result Comment: Nega tive for Flu B protein antigen. Infection due to Flu B cannot be ruled out. Flu B antigen in the sample may be below the detection limit of the test. Performed By: #### I NFLUAB #### [facility] [address] [place] [address] Dr. Ashlie Hills INFLUENZA A AG Negative Normal NEGATIVE SEE COMMENT [facility] Comment on above: Performed By: #### I NFLUAB #### [facility] [address] [place] [address] Dr. Ashlie [place] INFLUENZA B AG Negative Normal NEGATIVE SEE COMMENT [facility] Comment on above: Performed By: #### I NFLUAB #### [facility] [address] [place] [place] [address] ABD/PELV W CONon [...] to at least 10/21/2018, unchanged. https://www.ncbi.nlm .nih.gov/pmc/article s/[email or web address]/ Electronically authenticated by: COLLIN HUERTAS Date: 2022-07-27 14:56 Normal [facility] CREATININEon 07-18-2022 Creatinine [Mass/Vol] 0.81 mg/dL Normal 0.55-1.02 [facility] Comment on above: Performed By: #### C BC #### [facility] [address] [place] [address] Dr. Ashlie [place] EGFR-AF GERMAN >60 Normal >=60 [facility] Comment on above: Performed By: #### C BC #### [facility] [address] [place] [address] Dr. Ashlie [place] EGFR-NON AF GERMAN >60 Normal >=60 [facility] Comment on above: Performed By: #### C BC #### [facility] [address] [place] [address] LOW EXT W [...] [facility] Covid-19 PCR (CVDTB)on 06-09 SARS-CoV-2 (COVID-19) [...] for this test is supported by the Network Coordinator of Health and Human Service's (HHS's) declaration [...] BC #### [facility] [address] [place] [address] Dr. Ashlie Hills INFLUENZA A AND B AGon 07-06 INFLUANEGH SEE BELOW Normal [facility] Comment on above: Result Comment: Nega tive for Flu A protein angiten. Infection due to Flu A cannot be ruled out. Flu A angiten in the sample may be below the detection limit of the test. Performed By: #### C BC #### [facility] [address] [place] [address] Dr. Ashlie Hills INFLUBNEGH SEE BELOW Normal [facility] Comment on above: Result Comment: Nega tive for Flu B protein antigen. Infection due to Flu B cannot be ruled out. Flu B antigen in the sample may be below the detection limit of the test. Performed By: #### C BC #### [facility] [address] [place] [address] Dr. Ashlie Hills INFLUENZA A AG Negative Normal NEGATIVE SEE COMMENT [facility] Comment on above: Performed By: #### C BC #### [facility] [address] [place] [place] [address] Dr. Ashlie Hills INFLUENZA B AG Negative Normal NEGATIVE SEE COMMENT [facility] Comment on above: Performed By: #### C BC #### [facility] [address] [place] [address] Dr. Ashlie Hills POINT OF CARE GLUCOSEon 04-08 Glucose [Mass/Vol] 108 mg/dL Critically high 74-106 [facility] Comment on above: Performed By: #### C BC #### [facility] [address] [place] [address] Dr. Ashlie Hills RAGHU by IFAon 03-07-2022 Antinuclear Antibodies, IFA Negative Normal [facility] Comment on above: Result Comment: Nega tive <1:80 Borderline 1:80 Positive >1:80 ICAP nomenclature: AC-0 For more information about Hep-2 cell patterns use ANApatterns.org, the official website for the International Consensus on Antinuclear Antibody (RAGHU) Patterns (ICAP). Performed By: #### A NAIFA #### [facility] [address] [address] [address] Ashlie Hills IMMUNOFIXATION (TREVON), URINEo n 03-07-2022 TREVON Interpretation:U Comment Normal [facility] Comment on above: Result Comment: No m onoclonality detected. Performed By: #### C BC #### [facility] [address] [address] [address] Ashlie Hills IMMUNOFIXATION(TREVON),PROTEIN ELEC(PE),FREon 03-07-2022 Albumin [Mass/Vol] 3.0 g/dL Normal 2.9-4.4 [facility] Comment on above: Performed By: #### I NFLUAB #### [facility] [address] [place] [place] [address] Dr. Ashlie Hills Albumin/Globulin [Mass ratio] 0.8 {ratio} Normal 0.7-1.7 [facility] Comment on above: Performed By: #### I NFLUAB #### [facility] [address] [place] [address] Dr. Ashlie Hills Loidv-8-Hikqwwsq 0.3 g/dL Normal 0.0-0.4 [facility] Comment on above: Performed By: #### I NFLUAB #### [facility] [address] [place] [place] [address] Dr. Ashlie Hills Axsno-4-Ziqvmqcq 1.0 g/dL Normal 0.4-1.0 [facility] Comment on above: Performed By: #### I NFLUAB #### [facility] [address] [place] [place] [address] Dr. Ashlie Hills Beta Globulin 1.8 g/dL Critically high 0.7-1.3 [facility] Comment on above: Performed By: #### I NFLUAB #### [facility] [address] [place] [place] [address] Dr. Ashlie Hills Free Latrobe Lt Chains,S 45.2 mg/L Critically high 3.3-19.4 [facility] Comment on above: Performed By: #### I NFLUAB #### [facility] [address] [address] [address] Ashlie Hills Free Lambda Lt Chains,S 40.3 mg/L Critically high 5.7-26.3 [facility] Comment on above: Performed By: #### I NFLUAB #### [facility] [address] [place] [place] [address] Dr. Ashlie Hills Gamma Globulin 0.8 g/dL Normal 0.4-1.8 [facility] Comment on above: Performed By: #### I NFLUAB #### [facility] [address] [place] [address] Dr. Ashlie Hills Globulin (S) [Mass/Vol] 3.9 g/dL Normal 2.2-3.9 [facility] Comment on above: Performed By: #### I NFLUAB #### [facility] [address] [place] [place] [address] Dr. Ashlie Hills Immunofixation Result, Serum Comment Normal [facility] Comment on above: Result Comment: No m onoclonality detected. Performed By: #### I NFLUAB #### [facility] [address] [place] [address] Dr. Ashlie Hills Immunoglobulin A, Qn, Serum 776 mg/dL Critically high 87-352 [facility] Comment on above: Performed By: #### I NFLUAB #### [facility] [address] [place] [place] [address] Dr. Ashlie Hills Immunoglobulin G, Qn, Serum 955 mg/dL Normal 586-1602 [facility] Comment on above: Performed By: #### I NFLUAB #### [facility] [address] [place] [place] [address] Dr. Ashlie Hills Immunoglobulin M, Qn, Serum 39 mg/dL Normal 26-217 [facility] Comment on above: Performed By: #### I NFLUAB #### [facility] [address] [place] [place] [address] Dr. Ashlie Hills Latrobe/Lambda Ratio, S 1.12 Normal 0.26-1.65 [facility] Comment on above: Performed By: #### I NFLUAB #### [facility] [address] [place] [address] Dr. Ashlie Hills M-Bright Not Observed Normal Not Observed [facility] Comment on above: Performed By: #### I NFLUAB #### [facility] [address] [place] [place] [address] Dr. Ashlie Hills PDF . Normal [facility] Comment on above: Performed By: #### I NFLUAB #### [facility] [address] [address] [address] Ashlie Hills Please note: Comment Normal [facility] Comment on above: Result Comment: Prot ein electrophoresis scan will follow via computer, mail, or drawing in hand delivery. Performed By: #### I NFLUAB #### [facility] [address] [place] [address] Dr. Ashlie Hills Protein [Mass/Vol] 6.9 g/dL Normal 6.0-8.5 [facility] Comment on above: Performed By: #### I NFLUAB #### [facility] [address] [place] [address] Dr. Ashlie Hills C-PEPTIDE, SERUMon 2 C-Peptide, Serum 3.1 ng/mL Normal 1.1-4.4 [facility] Comment on above: Result Comment: C-Pe ptide reference interval is for fasting patients. Performed By: #### C PEPT #### [facility] [address] [place] [place] [address] Dr. Ahslie Hills HEP B SURFACE ANTIGEN SCREEN on 03-04-2022 HBsAg Screen Negative Normal Negative [facility] Comment on above: Performed By: #### C BC #### [facility] [address] [place] [address] Dr. Ashlie Hills HEPATITIS C VIRUS AB W/ REFL EX QUANTon 03-04-2022 HCV AB <0.1 Normal 0.0-0.9 [facility] Comment on above: Performed By: #### I NFLUAB #### [facility] [address] [place] [address] Dr. Ashlie Hills Interpretation: Comment Normal [facility] Comment on above: Result Comment: Rupert tikike Not infected with HCV, unless recent infection is suspected or other evidence exists to indicate HCV infection. Performed By: #### I NFLUAB #### [facility] [address] [address] [address] Ashlie Hills MICROALBUMIN/ CREATININE RAT IOon 03-04-2022 Albumin, Urine 367.4 ug/mL Normal Not Estab. [facility] Comment on above: Performed By: #### C BC #### [facility] [address] [address] [address] Ashlie Hills Albumin/ Creatinine Ratio 239 mg/g creat Critically high 0-29 [facility] Comment on above: Result Comment: Norm al: 0 - 29 Moderately increased: 30 - 300 Severely increased: >300 Performed By: #### C BC #### [facility] [address] [address] [address] Ashlie Hills Creatinine, Urine 153.9 mg/dL Normal Not Estab. [facility] Comment on above: Performed By: #### C BC #### [facility] [address] [address] [address] Ashlie Hlils VIT D 25-OH LABCORPon 2021 Vitamin D, 25-Hydroxy <4.0 Critically low 30.0-100.0 [facility] Comment on above: Result Comment: Graciela min D deficiency has been defined by the [place] of [employer] and an Endocrine Society practice guideline as a level of serum 25-OH vitamin D less than 20 ng/mL (1,2). The Endocrine Society went on to further define vitamin D insufficiency as a level between 21 and 29 ng/mL (2). 1. IOM ([place] of [employer]). 2010. Dietary reference intakes for calcium and D. [place]: The National Academies Press. 2. Lynda MF, Keely [place], Leandra LOPEZ, et al. Evaluation, treatment, and prevention of vitamin D deficiency: an Endocrine Society clinical practice guideline. JCEM. 2010; 96(7):1911-30. Performed By: #### C BC #### [facility] [address] [address] [address] Ashlie Hills GLYCOHEMOGLOBIN A1Con 2021 ADA RECOMMENDATION SEE BELOW Normal [facility] Comment on above: Result Comment: ADA RECOMMENDED LIMIT 4.0 - 6.0 ADA THERAPEUTIC TARGET < 7.0 ACTION SUGGESTED > 7.0 Performed By: #### C VDAGS #### [facility] [address] [place] [address] Dr. Ashlie Hills Glucose [Mass/Vol] 295 mg/dL Normal [facility] Comment on above: Performed By: #### C VDAGS #### [facility] [address] [place] [place] [address] Dr. Ashlie Hills HbA1c (Bld) [Mass fraction] 11.9 % Critically high 4.5-6.2 [facility] Comment on above: Performed By: #### C VDAGS #### [facility] [address] [place] [address] Dr. Ashlie Hills HEMOGRAM AND PLATELon 2021 Hematocrit (Bld) [Volume fraction] 56.3 % Critically high 36.0-48.0 [facility] Comment on above: Performed By: #### C VDAGS #### [facility] [address] [place] [address] Dr. Ashlie Hills Hemoglobin (Bld) [Mass/Vol] 18.0 g/dL Critically high 12.0-16.0 [facility] Comment on above: Performed By: #### C VDAGS #### [facility] [address] [place] [address] Dr. Ashlie Hills MCH (RBC) [Entitic mass] 29.5 pg Normal 26.7-34.0 [facility] Comment on above: Performed By: #### C VDAGS #### [facility] [address] [place] [address] Dr. Ashlie Hills MCHC (RBC) [Mass/Vol] 32.0 g/dL Normal 29.9-35.2 [facility] Comment on above: Performed By: #### C VDAGS #### [facility] [address] [place] [address] Dr. Ashlie Hills MCV (RBC) [Entitic vol] 92.1 fL Normal 81.0-99.0 [facility] Comment on above: Performed By: #### C VDAGS #### [facility] [address] [place] [place] [address] Dr. Ashlie Hills PLT 123 103/ul Critically low 150-450 [facility] Comment on above: Performed By: #### C VDAGS #### [facility] [address] [place] [address] Dr. Ashlie Hills RBC 6.11 106/ul Critically high 4.20-5.40 [facility] Comment on above: Performed By: #### C VDAGS #### [facility] [address] [place] [place] [address] Dr. Ashlie Hills WBC 16.4 103/ul Critically high 4.0-11.0 [facility] Comment on above: Performed By: #### C VDAGS #### [facility] [address] [place] [address] Dr. Ashlie Hills LIPID PROFILEon 03-03-2022 CHOL-HDL RATIO NORM SEE BELOW Normal [facility] Comment on above: Result Comment: 3.3 - 4.4 LOW RISK 4.4 - 7.1 AVERAGE RISK 7.1 - 11.0 MODERATE RISK >11.0 HIGH RISK Performed By: #### C VDAGS #### [facility] [address] [place] [address] Dr. Ashlie Hills Cholesterol [Mass/Vol] 159 mg/dL Normal <=200 [facility] Comment on above: Performed By: #### C VDAGS #### [facility] [address] [place] [address] Dr. Ashlie Hills Cholesterol in HDL [Mass/Vol] 40 mg/dL Normal 40-60 [facility] Comment on above: Performed By: #### C VDAGS #### [facility] [address] [place] [address] Dr. Ashlie Hills Cholesterol in LDL [Mass/Vol] 81.8 mg/dL Normal [facility] Comment on above: Performed By: #### C VDAGS #### [facility] [address] [address] [address] Ashlie Hills Cholesterol.total/Chol esterol in HDL [Mass ratio] 4.0 {ratio} Normal [facility] Comment on above: Performed By: #### C VDAGS #### [facility] [address] [address] [address] Ashlie Hills HDL NORMAL > or = 60 mg/dl - LOW CARDIOVASCULAR RISK <40 mg/dl - HIGH CARDIOVASCULAR RISK Normal [facility] Comment on above: Performed By: #### C VDAGS #### [facility] [address] [address] [address] Ashlie Hills LDL CALC NORMAL SEE BELOW Normal [facility] Comment on above: Result Comment: <100 mg/dl OPTIMAL 100 - 129 mg/dl NEAR OR ABOVE OPTIMAL 130 - 159 mg/dl BORDERLINE HIGH 160 - 189 mg/dl HIGH >190 mg/dl VERY HIGH Performed By: #### C VDAGS #### [facility] [address] [place] [address] Dr. Ashlie Hills Triglyceride [Mass/Vol] 186 mg/dL Critically high <=150 [facility] Comment on above: Performed By: #### C VDAGS #### [facility] [address] [place] [address] Dr. Ashlie Hills VLDL CALC 37.2 mg/dL Normal [facility] Comment on above: Performed By: #### C VDAGS #### [facility] [address] [place] [place] [address] Dr. Ashlie Hills RENAL FUNCTION PANELon 03-03 Albumin [Mass/Vol] 3.1 g/dL Critically low 3.4-5.0 Th [facility] Comment on above: Performed By: #### C BC #### [facility] [address] [place] [address] Dr. Ashlie Hills Calcium [Mass/Vol] 9.2 mg/dL Normal 8.5-10.1 [facility] Comment on above: Performed By: #### C BC #### [facility] [address] [place] [address] Dr. Ashlie Hills Chloride [Moles/Vol] 102 mmol/L Normal 98-107 [facility] Comment on above: Performed By: #### C BC #### [facility] [address] [address] [address] Ashlie Hills CO2 [Moles/Vol] 31.9 mmol/L Normal 21.0-32.0 [facility] Comment on above: Performed By: #### C BC #### [facility] [address] [address] [address] Ashlie Hills Creatinine [Mass/Vol] 0.68 mg/dL Normal 0.55-1.02 [facility] Comment on above: Performed By: #### C BC #### [facility] [address] [place] [address] Dr. Ashlie Hills EGFR-AF GERMAN >60 Normal >=60 [facility] Comment on above: Performed By: #### C BC #### [facility] [address] [place] [address] Dr. Ashlie Hills EGFR-NON AF GERMAN >60 Normal >=60 [facility] Comment on above: Performed By: #### C BC #### [facility] [address] [address] [address] Ashlie Hills Glucose [Mass/Vol] 131 mg/dL Critically high 74-106 [facility] Comment on above: Performed By: #### C BC #### [facility] [address] [address] [address] Ashlie Hills Phosphate [Mass/Vol] 4.0 mg/dL Normal 2.6-4.7 [facility] Comment on above: Performed By: #### C BC #### [facility] [address] [address] [address] Ashlie Hills Potassium [Moles/Vol] 4.0 mmol/L Normal 3.5-5.1 [facility] Comment on above: Performed By: #### C BC #### [facility] [address] [address] [address] Ashlie Hills Sodium [Moles/Vol] 141 mmol/L Normal 136-145 [facility] Comment on above: Performed By: #### C BC #### [facility] [address] [place] [address] Dr. Ashlie Hills Urea nitrogen [Mass/Vol] 17.0 mg/dL Normal 7.0-18.0 [facility] Comment on above: Performed By: #### C BC #### [facility] [address] [place] [address] Dr. Ashlie Hills UA RANDOM W/MICROSCOPICon BACTERIA NONE SEEN Normal NONE SEEN [facility] Comment on above: Performed By: #### I NFLUAB #### [facility] [address] [address] Dr. Ashlie Hills Bilirubin Ql (U) Negative Normal NEGATIVE [facility] Comment on above: Performed By: #### I NFLUAB #### [facility] [address] [place] [address] Dr. Ashlie Hills CAST NONE SEEN Normal NONE SEEN [facility] Comment on above: Performed By: #### I NFLUAB #### [facility] [address] [place] [address] Dr. sAhlie Hills Clarity (U) CLEAR Normal CLEAR [facility] Comment on above: Performed By: #### I NFLUAB #### [facility] [address] [place] [address] Dr. Ashlie Hills Color (U) YELLOW Normal YELLOW [facility] Comment on above: Performed By: #### I NFLUAB #### [facility] [address] [place] [place] [address] Dr. Ashlie Hills Crystals LM Nom (Urine sed) NONE SEEN Normal NONE SEEN [facility] Comment on above: Performed By: #### I NFLUAB #### [facility] [address] [place] [address] Dr. Ashlie Hills Epithelial cells LM Ql (Urine sed) FEW Abnormal NONE SEEN /RARE [facility] Comment on above: Performed By: #### I NFLUAB #### [facility] [address] [place] [address] Dr. Ashlie Hills Glucose Ql (U) Negative Normal NEGATIVE [facility] Comment on above: Performed By: #### I NFLUAB #### [facility] [address] [address] [address] Ashlie Hills Hemoglobin Ql (U) Negative Normal NEGATIVE [facility] Comment on above: Performed By: #### I NFLUAB #### [facility] [address] [place] [address] Dr. Ashlie Hills Ketones Ql (U) Negative Normal NEGATIVE [facility] Comment on above: Performed By: #### I NFLUAB #### [facility] [address] [place] [address] Dr. Ashlie Hills LEUKOCYTES Negative Normal NEGATIVE [facility] Comment on above: Performed By: #### I NFLUAB #### [facility] [address] [place] [address] Dr. Ashlie Hills MUCOUS NONE SEEN Normal NONE SEEN [facility] Comment on above: Performed By: #### I NFLUAB #### [facility] [address] [place] [address] Dr. Ashlie Hills Nitrite Ql (U) Negative Normal NEGATIVE [facility] Comment on above: Performed By: #### I NFLUAB #### [facility] [address] [address] Dr. Ashlie Hills pH (U) 5.5 [pH] Normal 5-9 [facility] Comment on above: Performed By: #### I NFLUAB #### [facility] [address] [place] [place] [address] Dr. Ashlie Hills RBC 0-2 Normal 0-2 [facility] Comment on above: Performed By: #### I NFLUAB #### [facility] [address] [place] [address] Dr. sAhlie Hills SPEC GRAVITY >=1.030 Abnormal 1.005-<=1.025 [facility] Comment on above: Performed By: #### I NFLUAB #### [facility] [address] [place] [address] Dr. Ashlie Hills UA PROTEIN 100 mg/dl Abnormal NEGATIVE/ TRACE [facility] Comment on above: Performed By: #### I NFLUAB #### [facility] [address] [address] Dr. Ashlie Hills Urobilinogen Qn (U) 0.2 {Little'U}/dL Normal 0.2 - 1. 0 [facility] Comment on above: Performed By: #### I NFLUAB #### [facility] [address] [place] [address] Dr. Ashlie Hills WBC NONE SEEN Normal NONE SEEN [facility] Comment on above: Performed By: #### I NFLUAB #### [facility] [address] [place] [address] Dr. Ashlie Hills URIC ACID SERUMon 03-03-2022 Urate [Mass/Vol] 5.0 mg/dL Normal 2.6-6.0 [facility] Comment on above: Performed By: #### I NFLUAB #### [facility] [address] [place] [address] Dr. Ashlie Hills URINE T PROTEIN CREAT RATIOo n 03-03-2022 Protein (U) [Mass/Vol] 77.9 mg/dL Critically high <=12.0 [facility] Comment on above: Performed By: #### C VDAGS #### [facility] [address] [place] [address] Dr. Ashlie Hills UR PROT CREAT RAT 0.44 Normal [facility] Comment on above: Performed By: #### C VDAGS #### [facility] [address] [place] [address] Dr. Ashlie Hills URINE CREAT 175.15 mg/dL Normal 20.00-300.00 [facility] Comment on above: Performed By: #### C VDAGS #### [facility] [address] [place] [address] Dr. Ashlie Hills CULTURE URINEon 12-25-2021 CULTURE URINE Culture Observations: GREATER THAN TWO ORGANISMS PRESENT, HEAVILY MIXED. PLEASE RESUBMIT CLEAN CATCH MID-STREAM URINE IF CLINICALLY INDICATED. Normal [facility] Comment on above: Performed By: #### I NFLUAB #### [facility] [facility] [address] [address] [address] Ashlie Hills CBC AUTO DIFFon 12-24-2021 BASO # 0.1 103/ul Normal 0.0-0.1 [facility] Comment on above: Performed By: #### C BC #### [facility] [address] [address] [address] Ashlie Hills Basophils/100 WBC (Bld) 0.5 % Normal 0.2-2.0 [facility] Comment on above: Performed By: #### C BC #### [facility] [address] [address] Dr. Ashlie Hills EO # 0.4 103/ul Normal 0.0-0.7 [facility] Comment on above: Performed By: #### C BC #### [facility] [address] [place] [address] Dr. Ashlie Hills Eosinophils/100 WBC (Bld) 2.4 % Normal 0.9-7.0 [facility] Comment on above: Performed By: #### C BC #### [facility] [address] [address] Dr. Ashlie Hills Erythrocyte distribution width (RBC) [Ratio] 14.1 % Normal 11.0-15.0 [facility] Comment on above: Performed By: #### C BC #### [facility] [address] [address] Dr. Ashlie Hills Hematocrit (Bld) [Volume fraction] 55.9 % Critically high 36.0-48.0 [facility] Comment on above: Performed By: #### C BC #### [facility] [address] [place] [address] Dr. Ashlie Hills Hemoglobin (Bld) [Mass/Vol] 17.9 g/dL Critically high 12.0-16.0 [facility] Comment on above: Performed By: #### C BC #### [facility] [address] [place] [address] Dr. Ashlie Hills IG # 0.06 10e3/ul Critically high 0.00-0.03 [facility] Comment on above: Performed By: #### C BC #### [facility] [address] [place] [address] Dr. Ashlie Hills IG % 0.4 % Normal 0.0-0.5 [facility] Comment on above: Performed By: #### C BC #### [facility] [address] [place] [address] Dr. Ashlie Hills LYMPH # 5.8 103/ul Critically high 1.2-3.8 [facility] Comment on above: Performed By: #### C BC #### [facility] [address] [place] [place] [address] Dr. Ashlie Hills Lymphocytes/100 WBC (Bld) 35.4 % Normal 20.5-60.0 [facility] Comment on above: Performed By: #### C BC #### [facility] [address] [place] [address] Dr. Ashlie Hills MANUAL DIFF REQ NO Normal [facility] Comment on above: Performed By: #### C BC #### [facility] [address] [place] [place] [address] Dr. Ashlie Hills MCH (RBC) [Entitic mass] 29.4 pg Normal 26.7-34.0 [facility] Comment on above: Performed By: #### C BC #### [facility] [address] [place] [address] Dr. Ashlie Hills MCHC (RBC) [Mass/Vol] 32.0 g/dL Normal 29.9-35.2 [facility] Comment on above: Performed By: #### C BC #### [facility] [address] [place] [place] [address] Dr. Ashlie Hills MCV (RBC) [Entitic vol] 91.8 fL Normal 81.0-99.0 [facility] Comment on above: Performed By: #### C BC #### [facility] [address] [place] [place] [address] Dr. Ashlie Hills MONO # 0.8 103/ul Normal 0.3-0.8 [facility] Comment on above: Performed By: #### C BC #### [facility] [address] [address] [address] Ashlie Hills Monocytes/100 WBC (Bld) 4.8 % Normal 1.7-12.0 [facility] Comment on above: Performed By: #### C BC #### [facility] [address] [place] [place] [address] Dr. Ashlie Hills NEUT # 9.3 103/ul Critically high 1.4-6.5 [facility] Comment on above: Performed By: #### C BC #### [facility] [address] [place] [address] Dr. Ashlie Hills Neutrophils/100 WBC (Bld) 56.5 % Normal 43.0-75.0 [facility] Comment on above: Performed By: #### C BC #### [facility] [address] [place] [place] [address] Dr. Ashlie Hills Platelet mean volume (Bld) [Entitic vol] 12.9 fL Normal 9.5-13.5 [facility] Comment on above: Performed By: #### C BC #### [facility] [address] [place] [place] [address] Dr. Ashlie Hills PLT 127 103/ul Critically low 150-450 [facility] Comment on above: Performed By: #### C BC #### [facility] [address] [place] [place] [address] Dr. Ashlie Hills RBC 6.09 106/ul Critically high 4.20-5.40 [facility] Comment on above: Performed By: #### C BC #### [facility] [address] [place] [address] Dr. Ashlie Hills WBC 16.4 103/ul Critically high 4.0-11.0 [facility] Comment on above: Performed By: #### C BC #### [facility] [address] [place] [place] [address] ABD/PELVIS WO CONon [...] Bilirubin Ql (U) Negative Normal NEGATIVE [facility] Comment on above: Performed By: #### MADELINE DIAZRO #### [facility] [address] [address] [address] Ashlie Hills Clarity (U) CLEAR Normal CLEAR [facility] Comment on above: Performed By: #### MADELINE DIAZRO #### [facility] [address] [place] [address] Dr. Ashlie Hills Color (U) DK. ORANGE Abnormal YELLOW [facility] Comment on above: Performed By: #### MADELINE DIAZRO #### [facility] [address] [place] [address] Dr. Ashlie HOBBS A micrscopic examination will be performed if indicated. Normal [facility] Comment on above: Performed By: #### MADELINE DIAZRO #### [facility] [address] [place] [address] Dr. Ashlie Hills Glucose Ql (U) 250 mg/dl Abnormal NEGATIVE [facility] Comment on above: Performed By: #### MADELINE DIAZRO #### [facility] [address] [place] [place] [address] Dr. Ashlie Hills Hemoglobin Ql (U) Negative Normal NEGATIVE [facility] Comment on above: Performed By: #### MADELINE DIAZRO #### [facility] [address] [address] [address] Ashlie Hills Ketones Ql (U) Negative Normal NEGATIVE [facility] Comment on above: Performed By: #### MADELINE DIAZRO #### [facility] [address] [place] [address] Dr. Ashlie Hills LEUKOCYTES Negative Normal NEGATIVE [facility] Comment on above: Performed By: #### MADELINE DIAZRO #### [facility] [address] [place] [place] [address] Dr. Ashlie Hills Nitrite Ql (U) Negative Normal NEGATIVE [facility] Comment on above: Performed By: #### Tracey LYMAN UMICRO #### [facility] [address] [place] [address] Dr. Ashlie Hills pH (U) 5.0 [pH] Normal 5-9 [facility] Comment on above: Performed By: #### Tracey LYMAN UMICRO #### [facility] [address] [place] [address] Dr. Ashlie Hills Protein (U) [Mass/Vol] 100 mg/dL Abnormal NEGAT YURY/ TRACE [facility] Comment on above: Performed By: #### MADELINE DIAZRO #### [facility] [address] [place] [address] Dr. Ashlie Hills SPEC GRAVITY >=1.030 Abnormal 1.005-<=1.025 [facility] Comment on above: Performed By: #### MADELINE DIAZRO #### [facility] [address] [place] [address] Dr. Ashlie Hills UR MICRO IND INDICATED Normal [facility] Comment on above: Performed By: #### PEREZ DIAZICRO #### [facility] [address] [place] [address] Dr. Ashlie Hills Urobilinogen Qn (U) 1.0 {Little'U}/dL Normal 0.2 - 1. 0 [facility] Comment on above: Performed By: #### MADELINE DIAZRO #### [facility] [address] [place] [address] Dr. Ashlie Hills PROF CHEM 8 (BAS METB)on Anion gap [Moles/Vol] 12.1 mmol/L Normal [facility] Comment on above: Performed By: #### I NFLUAB #### [facility] [address] [place] [address] Dr. Ashlie Hills Calcium [Mass/Vol] 9.0 mg/dL Normal 8.5-10.1 [facility] Comment on above: Performed By: #### I NFLUAB #### [facility] [address] [address] [address] Ashlie Hills Chloride [Moles/Vol] 101 mmol/L Normal 98-107 [facility] Comment on above: Performed By: #### I NFLUAB #### [facility] [address] [address] [address] Ashlie Hills CO2 [Moles/Vol] 29.1 mmol/L Normal 21.0-32.0 [facility] Comment on above: Performed By: #### I NFLUAB #### [facility] [address] [place] [place] [address] Dr. Ashlie Hills Creatinine [Mass/Vol] 0.86 mg/dL Normal 0.55-1.02 [facility] Comment on above: Performed By: #### I NFLUAB #### [facility] [address] [place] [address] Dr. Ashlie Hills EGFR-AF GERMAN >60 Normal >=60 [facility] Comment on above: Performed By: #### I NFLUAB #### [facility] [address] [place] [place] [address] Dr. Ashlie Hills EGFR-NON AF GERMAN >60 Normal >=60 [facility] Comment on above: Performed By: #### I NFLUAB #### [facility] [address] [address] Dr. Ashlie Hills Glucose [Mass/Vol] 236 mg/dL Critically high 74-106 [facility] Comment on above: Performed By: #### I NFLUAB #### [facility] [address] [address] [address] Ashlie Hills Potassium [Moles/Vol] 4.2 mmol/L Normal 3.5-5.1 [facility] Comment on above: Performed By: #### I NFLUAB #### [facility] [address] [address] [address] Ashlie Hills Sodium [Moles/Vol] 138 mmol/L Normal 136-145 [facility] Comment on above: Performed By: #### I NFLUAB #### [facility] [address] [place] [place] [address] Dr. Ashlie Hills Urea nitrogen [Mass/Vol] 11.0 mg/dL Normal 7.0-18.0 [facility] Comment on above: Performed By: #### I NFLUAB #### [facility] [address] [place] [place] [address] Dr. Ashlie Hills Urea nitrogen/Creatinine [Mass ratio] 12.8 mg/mg Normal [facility] Comment on above: Performed By: #### I NFLUAB #### [facility] [address] [place] [address] Dr. Ashlie Hills URINE MICROSCOPIC ONLYon BACTERIA SMALL Abnormal NONE SEEN [facility] Comment on above: Performed By: #### E NURA UMICRO #### [facility] [address] [place] [address] Dr. Ashlie Hills Bacteria identified Cx Nom (U) INDICATED Normal [facility] Comment on above: Performed By: #### Tracey LYMAN UMICRO #### [facility] [address] [place] [address] Dr. Ashlie Hills CAST NONE SEEN Normal NONE SEEN [facility] Comment on above: Performed By: #### E NURA UMICRO #### [facility] [address] [place] [address] Dr. Ashlie Hills Crystals LM Nom (Urine sed) NONE SEEN Normal NONE SEEN [facility] Comment on above: Performed By: #### E NURA UMICRO #### [facility] [address] [place] [address] Dr. Ashlie Hills Epithelial cells LM Ql (Urine sed) MODERATE Abnormal NONE SEEN /RARE [facility] Comment on above: Performed By: #### E RUR UMICRO #### [facility] [address] [place] [place] [address] Dr. Ashlie Hills MUCOUS NONE SEEN Normal NONE SEEN [facility] Comment on above: Performed By: #### E RUR UMICRO #### [facility] [address] [place] [place] [address] Dr. Ashlie Hills RBC 0-2 Normal 0-2 [facility] Comment on above: Performed By: #### E RUR, MADELINERO #### [facility] [address] [address] [address] Ashlie Hills WBC 0-2 Abnormal NONE SEEN [facility] Comment on above: Performed By: #### E JIMMYR, UMICRO #### [facility] [address] [address] [address] Ashlie Hills YEAST PRESENT Abnormal NONE SEEN [facility] Comment on above: Performed By: #### E JIMMYR, MADELINERO #### [facility] [address] [address] [address] Ashlie Hills HIP RIGHT 1 OR 2 VWS WITH PE LVISon 07-20-2020 HIP RIGHT 1 OR 2 VWS WITH PELVIS [facility] Department of Radiology [address] [place] [id number] Patient Name: MITZI MACIAS : 1970 Sex: F Age: Race: White Pt. Location: Patient Status: O Ordered Date: 07/20/2020 1:45:00 PM Completed Date: 07/20/2020 01:57 PM Requesting Provider: LIZ EISENBERG Attending Provider: LIZ EISENBERG Report Copy To: MCKAYLA BLAS Signs & Symptoms: M25.551 Pain in right hip I10 History: [place] Comments: evaluate Exam: HIP RIGHT 1 OR [...] MRI. Electronically signed: Pipo Acevedo. Transcribed by: [email or web address], User Resident: Electronically Signed by: PIPO ACEVEDO @ 07/20/2020 03:45 PM Normal [facility] Comment on above: Order Comment: evalu ate Vital Signs Date Time Vital Sign Value Performing Clinician Facility 01-29-2025 09:48-0400 Body height 170.2 cm Rain Souza MD Work Phone: [facility] 01-29-2025 09:48-0400 Body mass index (BMI) [Ratio] 56.38 kg/m2 Rain Souza MD Work Phone: [facility] 01-29-2025 09:48-0400 Body weight 163.29 kg Rain Souza MD Work Phone: [facility] 01-29-2025 09:48-0400 Diastolic blood pressure 70 mm[Hg] Rain Souza MD Work Phone: [facility] 01-29-2025 09:48-0400 Heart rate 72 /min Rain Souza MD Work Phone: [facility] 01-29-2025 09:48-0400 Respiratory rate 16 /min Rain Souza MD Work Phone: [facility] 01-29-2025 09:48-0400 SaO2% (BldA) [Mass fraction] 84 % Rain Souza MD Work Phone: [facility] 01-29-2025 09:48-0400 Systolic blood pressure 130 mm[Hg] Rain Souza MD Work Phone: [facility] 01-26-2025 18:11-0400 Body mass index (BMI) [Ratio] 58.64 kg/m2 Mckayla Blas NP Work Phone: [facility] 01-26-2025 18:11-0400 Body temperature 98.49 [degF] Mckayla Aichholz [employer] Work Phone: [facility] 01-26-2025 18:11-0400 Body weight 169.83 kg Mckayla Aichholz [employer] Work Phone: [facility] 01-26-2025 18:11-0400 Diastolic blood pressure 82 mm[Hg] Mckayla Aichholz [employer] Work Phone: [facility] 01-26-2025 18:11-0400 Heart rate 81 /min Mckayla Aichholz [employer] Work Phone: [facility] 01-26-2025 18:11-0400 Respiratory rate 20 /min Mckayla Aichholz [employer] Work Phone: [facility] 01-26-2025 18:11-0400 SaO2% (BldA) [Mass fraction] 90 % Mckayla Aichholz [employer] Work Phone: [facility] 01-26-2025 18:11-0400 Systolic blood pressure 126 mm[Hg] Mckayla Aichholz [employer] Work Phone: [facility] 12-09-2024 10:19-0400 Body temperature 98.01 [degF] Mckayla Aichholz [employer] Work Phone: [facility] 12-09-2024 10:19-0400 Diastolic blood pressure 76 mm[Hg] Mckayla Aichholz [employer] Work Phone: [facility] 12-09-2024 10:19-0400 Heart rate 71 /min Mckayla Aichholz [employer] Work Phone: [facility] 12-09-2024 10:19-0400 Respiratory rate 20 /min Mckayla Aichholz [employer] Work Phone: [facility] 12-09-2024 10:19-0400 SaO2% (BldA) [Mass fraction] 88 % Mckayla Aichholz [employer] Work Phone: [facility] 12-09-2024 10:19-0400 Systolic blood pressure 150 mm[Hg] Mckayla Rosenbergz [employer] Work Phone: [facility] 10-27-2024 14:11-0400 Body height 170.2 cm Mckaylajuvenal Rosenbergz [employer] Work Phone: [facility] 10-27-2024 14:11-0400 Body mass index (BMI) [Ratio] 56.51 kg/m2 Mckaylajuvenal Patriciaholz [employer] Work Phone: [facility] 10-27-2024 14:11-0400 Body temperature 98.71 [degF] Mckayla Rosenbergz [employer] Work Phone: [facility] 10-27-2024 14:11-0400 Body weight 163.66 kg Mckayla Rosenbergz [employer] Work Phone: [facility] 10-27-2024 14:11-0400 Diastolic blood pressure 74 mm[Hg] Mckayla Patriciaholz [employer]IVE Work Phone: [facility] 10-27-2024 14:11-0400 Heart rate 75 /min Mckaylajuvenal Patriciaholz [employer]IVE Work Phone: [facility] 10-27-2024 14:11-0400 Respiratory rate 18 /min Mckaylajuvenal Rosenbergz [employer]IVE Work Phone: [facility] 10-27-2024 14:11-0400 SaO2% (BldA) [Mass fraction] 90 % Mckaylajuvenal Rosenbergz [employer] Work Phone: [facility] 10-27-2024 14:11-0400 Systolic blood pressure 132 mm[Hg] Mckayla Harshadholz [employer] Work Phone: [facility] 10-08-2024 11:21-0400 Body height 170.2 cm Rain Souza MD Work Phone: [facility] 10-08-2024 11:21-0400 Body mass index (BMI) [Ratio] 55.91 kg/m2 Rain Souza MD Work Phone: [facility] 10-08-2024 11:21-0400 Body weight 161.93 kg Rain Souza MD Work Phone: [facility] 10-08-2024 11:21-0400 Diastolic blood pressure 70 mm[Hg] Rain Souza MD Work Phone: [facility] 10-08-2024 11:21-0400 Heart rate 70 /min Rain Souza MD Work Phone: [facility] 10-08-2024 11:21-0400 Respiratory rate 16 /min Rain Souza MD Work Phone: [facility] 10-08-2024 11:21-0400 SaO2% (BldA) [Mass fraction] 91 % Rain Souza MD Work Phone: [facility] 10-08-2024 11:21-0400 Systolic blood pressure 130 mm[Hg] Rain Souza MD Work Phone: [facility] 08-27-2024 17:44-0500 Body mass index (BMI) [Ratio] 57.31 kg/m2 Mckayla Wan [employer] Work Phone: [facility] 08-27-2024 17:44-0500 Body temperature 98.01 [degF] Mckayla Wan [employer] Work Phone: [facility] 08-27-2024 17:44-0500 Body weight 165.97 kg Mckayla Chetz [employer] Work Phone: [facility] 08-27-2024 17:44-0500 Diastolic blood pressure 76 mm[Hg] Mckayla Aicmickeyz [employer] Work Phone: [facility] 08-27-2024 17:44-0500 Heart rate 83 /min Mckayla Chetz [employer] Work Phone: [facility] 08-27-2024 17:44-0500 Respiratory rate 18 /min Mckayla Aichholz [employer] Work Phone: [facility] 08-27-2024 17:44-0500 SaO2% (BldA) [Mass fraction] 91 % Mckayla Wan [employer] Work Phone: [facility] 08-27-2024 17:44-0500 Systolic blood pressure 134 mm[Hg] Mckayla Wan [employer]IVE Work Phone: [facility] 06-11-2024 10:00-0500 Blood Pressure Location Elbert ARAUZ [facility] 06-11-2024 10:00-0500 Diastolic blood pressure 68 mm[Hg] Elbert ARAUZ [facility] 06-11-2024 10:00-0500 Heart rate 76 /min Elbert ARAUZ [facility] 06-11-2024 10:00-0500 Systolic blood pressure 132 mm[Hg] Elbert ARAUZ [facility] 05-27-2024 10:20-0500 Body height 170.2 cm Rain Souza MD Work Phone: [facility] 05-27-2024 10:20-0500 Body mass index (BMI) [Ratio] 56.7 kg/m2 Rain Souza MD Work Phone: [facility] 05-27-2024 10:20-0500 Body weight 164.2 kg Rain Souza MD Work Phone: [facility] 05-27-2024 10:20-0500 Diastolic blood pressure 66 mm[Hg] Rain Souza MD Work Phone: [facility] 05-27-2024 10:20-0500 Heart rate 72 /min Rain Souza MD Work Phone: [facility] 05-27-2024 10:20-0500 Respiratory rate 16 /min Rain Souza MD Work Phone: [facility] 05-27-2024 10:20-0500 Systolic blood pressure 128 mm[Hg] Rain Souza MD Work Phone: [facility] 04-14-2024 10:27-0400 Body height 165.1 cm Mckayla Aichholz [employer] Work Phone: [facility] 04-14-2024 10:27-0400 Body mass index (BMI) [Ratio] 61.01 kg/m2 Mckayla Aichholz [employer] Work Phone: [facility] 04-14-2024 10:27-0400 Body temperature 98.49 [degF] Mckayla Aichholz [employer]IVE Work Phone: [facility] 04-14-2024 10:27-0400 Body weight 166.29 kg Mckayla Aichholz [employer] Work Phone: [facility] 04-14-2024 10:27-0400 Diastolic blood pressure 80 mm[Hg] Mckayla Aichholz [employer]IVE Work Phone: [facility] 04-14-2024 10:27-0400 Heart rate 77 /min Mckayla Aichholz [employer]IVE Work Phone: [facility] 04-14-2024 10:27-0400 Respiratory rate 19 /min Mckayla Aichholz [employer]IVE Work Phone: [facility] 04-14-2024 10:27-0400 SaO2% (BldA) [Mass fraction] 92 % Mckayla Aichholz [employer]IVE Work Phone: [facility] 04-14-2024 10:27-0400 Systolic blood pressure 116 mm[Hg] Mckayla Aichholz [employer] EXEC[employer]IVE Work Phone: [facility] 03-08-2022 15:00-0400 Body height 170.18 cm Stephanie Cortés Other [employer] Other 03-08-2022 15:00-0400 Body temperature 97.6 [degF] Stephanie Tico Other [employer] Other 03-08-2022 15:00-0400 Diastolic blood pressure 72 mm[Hg] Stephanie Tico Other [employer] Other 03-08-2022 15:00-0400 Respiratory rate 20 /min Stephanie Tico Other [employer] Other 03-08-2022 15:00-0400 SaO2% (BldA) [Mass fraction] 91 % Stephanie Tico Other [employer] Other 03-08-2022 15:00-0400 Systolic blood pressure 131 mm[Hg] Stephanie Tico Other [employer] Other 02-20-2022 09:20-0400 Body height 170.18 cm Stephanie Tico Other [employer] Other 02-20-2022 09:20-0400 Body temperature 96.5 [degF] Stephanie Tico Other [employer] Other 02-20-2022 09:20-0400 Diastolic blood pressure 69 mm[Hg] Stephanie Tico Other [employer] Other 02-20-2022 09:20-0400 Respiratory rate 20 /min Stephanie Tico Other [employer] Other 02-20-2022 09:20-0400 SaO2% (BldA) [Mass fraction] 91 % Stephanie Tico Other [employer] Other 02-20-2022 09:20-0400 Systolic blood pressure 129 mm[Hg] Stephanie Cortés Other [employer] Other 02-06-2022 10:24-0400 Blood Pressure Location Elbert ARAUZ [facility] 02-06-2022 10:24-0400 Diastolic blood pressure 76 mm[Hg] Elbert ARAUZ [facility] 02-06-2022 10:24-0400 Heart rate 70 /min Elbert ARAUZ [facility] 02-06-2022 10:24-0400 Respiratory rate 16 /min Elbert ARAUZ [facility] [employer] 02-06-2022 10:24-0400 Systolic blood pressure 134 mm[Hg] Elbert ARAUZ [employer] [facility] [employer] Encounters Encounter Date Encounter Type Care Provider Facility Start: 03-23-2025 ambulatory Flynn Urias DPSmiley F acility:[facility] Start: 03-11-2025 End: 03-11-2025 ambulatory Flynn Urias DPSmiley Facility: [facility] Start: 03-09-2025 End: 03-09-2025 Refill Mckayla Blas NP Work Phone: [facility] Comment on above: Tobacco user; Encounter for smoking cessation counseling Start: 01-29-2025 End: 01-29-2025 Diana Souza MD Work Phone: [facility] Start: 01-29-2025 End: 01-29-2025 Bamboo flowsheet Rain Souza MD Work Phone: [facility] Start: 01-29-2025 End: 01-29-2025 Clinisync Result Encounter Generic External Data Provider [facility] External Department Unsolicited Start: 01-29-2025 End: 01-29-2025 ambulatory RAIN SOUZA Not Available Start: 01-29-2025 End: 01-29-2025 Office outpatient visit 25 minutes Rain Souza MD Work Phone: [facility] Comment on above: Encounter for dietar y consultation (Primary Dx); Type 2 diabetes mellitus with hyperglycemia, with long-term current use of insulin (HCC); Vitamin D deficiency; Primary hypertension ; Insulin long-term use (HCC); Hyperlipemia, mixed ; Microalbuminuria; Class 3 severe obesity due to excess calories with serious comorbidity and body mass index (BMI) of 50.0 to 59.9 in adult ([facility] Start: 01-26-2025 End: 01-26-2025 ambulatory MCKAYLA BLAS Not Available Start: 01-26-2025 End: 01-26-2025 Patient encounter procedure Mckayla Blas [employer] Work Phone: [facility] Comment on above: Encounter for subseq uent [...] (severe) obesity due to excess calories ([facility]) Start: 01-06-2025 End: 01-06-2025 ambulatory AMI PREETHI [facility] Start: 12-18-2024 End: 12-19-2024 Refill Mckayla Blas [employer] Work Phone: [facility] Comment on above: Hyperlipidemia, unsp ecified ; Tobacco user; Encounter for smoking cessation counseling Start: 12-09-2024 End: 12-09-2024 Bamboo flowsheet Mckayla Blas [employer] SAL[employer]EC[employer]IVE Work Phone: [facility] Start: 12-09-2024 End: 12-09-2024 Bamboo flowsheet Mckayla Blas [employer] SAL[employer]EC[employer]IVE Work Phone: [facility] Start: 12-09-2024 End: 12-09-2024 ambulatory MCKAYLA AICHHOLZ Not Available Start: 12-09-2024 End: 12-09-2024 Office outpatient visit 25 minutes Mckayla Blas [employer] SAL[employer] EXEC[employer]IVE Work Phone: [facility] Comment on above: Cellulitis of left [...] Office outpatient visit 25 minutes Mckayla Blas [employer]EC[employer]IVE Work Phone: [facility] Comment on above: Primary hypertension (CMS/HCC) (Primary Dx); Diabetic polyneuropathy associated with type 2 diabetes mellitus (CMS/HCC); Chronic diastolic heart failure ([facility]); Bilateral lower extremity edema; Morbid (severe) obesity due to excess calories ([facility]); Type 2 diabetes mellitus with complication, with long-term current use of insulin ([facility]); Anxiety and depression ([facility]); Cigarette nicotine dependence without complication; Encounter for screening mammogram for malignant neoplasm of breast; Insomnia; Non-seasonal allergic rhinitis, unspecified trigger; Type 2 diabetes mellitus with unspecified complications; Vitamin D deficiency, unspecified; Gastro-esophageal reflux disease without esophagitis; PAD (peripheral artery disease) ([facility]); Gastroesophageal reflux disease, unspecified whether esophagitis present; Venous ulcer of right leg ([facility]) Start: 10-21-2024 End: 10-21-2024 Refill Mckayla Blas NP Work Phone: [facility] Comment on above: Chronic obstructive pulmonary disease, unspecified Start: 10-08-2024 End: 10-08-2024 Clinisync Result Encounter Mckayla Blas NP Work Phone: [facility] External Department Unsolicited Start: 10-08-2024 End: 10-08-2024 Clinisync Result Encounter Mckayla Blas NP Work Phone: [facility] External Department Unsolicited Start: 10-08-2024 End: 10-08-2024 Office outpatient visit 25 minutes Rain Souza MD [facility] Comment on above: Type 2 diabetes asiya itus with hyperglycemia, with long-term current use of insulin ([facility]) (Primary Dx); Encounter for dietary consultation; Vitamin D deficiency; Primary hypertension ([facility]); Insulin long-term use ([facility]); Hyperlipemia, mixed ([facility]); Microalbuminuria; Class 3 severe obesity due to excess calories with serious comorbidity and body mass index (BMI) of 50.0 to 59.9 in adult Start: 10-08-2024 End: 10-08-2024 ambulatory RAIN SOUZA Not Available Start: 08-27-2024 End: 08-27-2024 Office outpatient visit 25 minutes Mckayla Blas NP Work Phone: [facility] Comment on above: Anxiety and depressi on (CMS/HCC) (Primary Dx); Morbid (severe) obesity due to excess calories ([facility]/HCC); Body mass index (BMI) 50.0-59.9, adult ([facility]/HCC); Malignant neoplasm of cervix uteri, unspecified ([facility]/HCC); Diabetic polyneuropathy associated with type 2 diabetes mellitus ([facility]/HCC); Chronic diastolic heart failure ([facility]/HCC); Primary hypertension ([facility]/HCC); 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 ([facility]); Gastroesophageal reflux disease, unspecified whether esophagitis present; Bilateral lower extremity edema; Type 2 diabetes mellitus with complication, with long-term current use of insulin ([facility]); Tobacco user; Mixed hyperlipidemia ([facility]); Gout, unspecified cause, unspecified chronicity, unspecified site; Vitamin deficiency; Gastro-esophageal reflux disease without esophagitis; Edema, unspecified; Edema; Hyperlipidemia, unspecified ([facility]); Encounter for smoking cessation counseling; Venous ulcer of right leg ([facility]); Antibiotic-induced yeast infection Start: 08-27-2024 End: 08-27-2024 ambulatory MCKAYLA BLAS Not Available Start: 08-27-2024 End: 08-27-2024 Clinisync Result Encounter Generic External Data Provider [facility] External Department Unsolicited Start: 08-27-2024 End: 08-27-2024 Clinisync Result Encounter Generic External Data Provider [facility] External Department Unsolicited Start: 08-08-2024 End: 08-08-2024 ambulatory [facility] Start: 07-17-2024 End: 07-17-2024 Refill Mckayla Blas NP Work Phone: [facility] Start: 07-14-2024 End: 07-14-2024 Office outpatient visit 25 minutes Mckayla Blas NP Work Phone: [facility] Comment on above: Primary hypertension (CMS/HCC) (Primary Dx); Diabetic polyneuropathy associated with type 2 diabetes mellitus ([facility]/HCC); Pulmonary emphysema, unspecified emphysema type ([facility]); Critical limb ischemia of right lower extremity ([facility]/HCC); PAD (peripheral artery disease) ([facility]); Gastroesophageal reflux disease, unspecified whether esophagitis present; Bilateral lower extremity edema; Venous ulcer of right leg ([facility]); Type 2 diabetes mellitus with complication, with long-term current use of insulin ([facility]); Tobacco user; Encounter for smoking cessation counseling; Kidney stone; Adrenal mass 1 cm to 4 cm in diameter ([facility]); Radiculopathy, lumbar region; Non-seasonal allergic rhinitis, unspecified trigger; Type 2 diabetes mellitus with unspecified complications ([facility]) Start: 07-14-2024 End: 07-14-2024 ambulatory MCKAYLA AICHHOLZ Not Available Start: 07-05-2024 End: 07-07-2024 Refill Mckayla Aiccayetanoholz [employer]IVE Work Phone: [facility] Comment on above: Bilateral lower extr emity edema Start: 06-11-2024 ambulatory Elbert Maysi ty:SHEA Mckee Start: 06-11-2024 End: 06-11-2024 Patient encounter procedure Elbert ARAUZ [facility] Start: 05-27-2024 End: 05-27-2024 Diana Small[place] Rain Souza MD Work Phone: [facility] Start: 05-27-2024 End: 05-27-2024 Diana Souza MD Work Phone: [facility] Start: 05-27-2024 End: 05-27-2024 ambulatory RAIN SOUZA Not Available Start: 05-27-2024 End: 05-27-2024 Office outpatient visit 25 minutes Rain Souza MD Work Phone: [facility] Comment on above: Type 2 diabetes asiya itus with hyperglycemia, with long-term current use of insulin ([facility]) (Primary Dx); Encounter for dietary consultation; Vitamin D deficiency; Primary hypertension ([facility]); Insulin long-term use (CMS/HCC); Hyperlipemia, mixed (CMS/HCC); Microalbuminuria; Class 3 severe obesity due to excess calories with serious comorbidity and body mass index (BMI) of 50.0 to 59.9 in adult ([facility]/HCC) Start: 05-12-2024 End: 05-12-2024 Clinisync Result Encounter Generic External Data Provider [facility] External Department Unsolicited Start: 05-12-2024 End: 05-12-2024 Clinisync Result Encounter Generic External Data Provider [facility] External Department Unsolicited Start: 05-08-2024 ambulatory SARAH Wilkerson ty:SHEA Villalobos Start: 04-14-2024 End: 04-14-2024 Bamboo flowsheet Mckayla Blas [employer] SAL[employer] EXECUTIVE Work Phone: [facility] Start: 04-14-2024 End: 04-14-2024 Bamboo flowsheet Mckayla Blas [employer] SAL[employer] EXECUTIVE Work Phone: [facility] Start: 04-14-2024 End: 04-14-2024 Office outpatient visit 25 minutes Mckayla Blas [employer] EXECUTIVE Work Phone: [facility] Comment on above: Primary hypertension ([facility]) (Primary Dx); Insomnia; Type 2 diabetes mellitus with complication, with long-term current use of insulin ([facility]); Non-seasonal allergic rhinitis, unspecified trigger; Type 2 diabetes mellitus with unspecified complications ([facility]); Anxiety and depression ([facility]); Gastro-esophageal reflux disease without esophagitis; Edema, unspecified; Edema; Diabetic polyneuropathy associated with type 2 diabetes mellitus ([facility]/HCC); Chronic obstructive pulmonary disease, unspecified ([facility]); Pulmonary emphysema, unspecified emphysema type ([facility]); Bilateral lower extremity edema; Tobacco user; Hyperpigmentation of skin Start: 04-14-2024 End: 04-14-2024 ambulatory MCKAYLA AICHHOLZ Not Available Start: 04-05-2024 End: 04-06-2024 Refill Mckayla Wan [employer]IVE Work Phone: [facility] Comment on above: Hyperlipidemia, unsp ecified (CMS/HCC); Bilateral lower extremity edema Vitamin D deficiency , unspecified Start: 01-17-2024 Patient encounter procedure Rain Souza MD Work Phone: [facility] Start: 08-17-2023 Refill Mckayla Chetz [employer] SAL[employer] EXECUTIVE Work Phone: [facility] Comment on above: Vaginal yeast infect ion (Primary Dx) Start: 08-14-2023 Refill Mckayla Wan [employer] EXEC[employer]IVE Work Phone: [facility] Comment on above: Type 2 diabetes asiya itus with unspecified complications ([facility]); Edema, unspecified; Edema Start: 12-05-2022 ambulatory NARENDRANATH LAKSHMIPATHY . Facility:[facility] Start: 12-05-2022 End: 12-06-2022 Evaluation and management of inpatient UMBERTO CANTU . Facility:[facility] Start: 11-23-2022 End: 11-23-2022 ambulatory STOCK TRADER MCKAYLA LARACayetanoRAVIJuanis Facility:[facility] Start: 11-22-2022 End: 11-23-2022 ambulatory STOCK TRADER MCKAYLA AICCayetanoRAVIZ Facility:[facility] Start: 11-17-2022 End: 11-18-2022 ambulatory SUBHASH GASPAR . Facility:[facility] Start: 11-15-2022 End: 11-15-2022 Patient encounter procedure SARAH VEGA [facility] Start: 10-05-2022 End: 10-05-2022 ambulatory MARIANO DIAB . Facility:[facility] Start: 09-21-2022 End: 09-21-2022 ambulatory STOCK TRADER MCKAYLA AICHHOLZ Facility:[facility] Start: 09-14-2022 ambulatory RAFAEL [...] 03-08-2022 End: 03-08-2022 ambulatory Stephanie Tico Other [employer] Other Start: 03-08-2022 Office outpatient vi sit 15 minutes Stephanie Tico [facility] Start: 03-03-2022 End: 03-04-2022 ambulatory SAYDA BLAS Facility:[facility] Start: 02-20-2022 End: 02-20-2022 ambulatory Stephanie Tico Other [employer] Other Start: 02-20-2022 Office outpatient ne w [...] 10-30-2019 Emergency department patient visit JAMES Reis [facility] Start: 10-30-2019 End: 10-30-2019 Emergency department patient visit James Deo [facility] Start: 11-02-2016 Preoperative state Stephanie Tico Other [facility] [employer] Other Procedures Date Procedure Procedure Detail Performing [...] Rain Souza MD Work Phone: Start: 10-08-2024 TB UA (CLEAN/CATCH) MICROSCOPIC IF INDICATE Mckayla Blas NP Work Phone: Start: 08-27-2024 ALL CBC WITH AUTO DIFF Generic External Data Provider Start: 05-27-2024 Gluc bld gluc mntr d ev cleared fda spec home use Rain Souza MD Work Phone: Start: 05-12-2024 TB CREATININE Generic External Data Provider Start: 12-14-2023 Mammography Rain urena MD Work Phone: Start: 11-22-2022 Mammography Mckayla clifford [employer] EX[employer]UTIVE Work Phone: Start: 10-08-2015 Microscopic observat ion [Identifier] in Cervix by Cyto stain Mckayla Blas [employer] EXECUTIVE Work Phone: H/O: hysterectomy Elbert LARA Laparoscopic cholecystectomy Elbert ARAUZ Operative procedure on foot Elbert ARAUZ Plan of Treatment Date Care Activity Detail Author Start: 02-01-2026 End: 02-01-2026 Patient encounter procedure [facility] Start: 01-26-2026 Medicare Annual Wellness (AWV) Medicare Annual Wellness (AWV) [facility] Start: 10-08-2025 Urine screening for protein Diabetes: Urine Protein Screening [facility] Start: 08-03-2025 Screening for malignant neoplasm of colon [facility] Start: 07-14-2025 Glaucoma screening Diabetes: R etinopathy Screening [facility] Start: 05-28-2025 End: 05-28-2025 Patient encounter procedure [facility] Start: 05-13-2025 Glaucoma screening Diabetes: R etinopathy Screening [facility] Start: 05-01-2025 Hemoglobin A1c measurement Diabetes: Hemoglobin A1C [facility] Start: 04-29-2025 End: 04-29-2025 Patient encounter procedure [facility] Start: 03-09-2025 Influenza vaccination [facility] Start: 01-28-2025 End: 01-28-2025 Patient encounter procedure 01/28/2025 10:50 AM EDT Office Visit [facility] [address] [place] [address] Rain Souza MD [address] [place] [address] [facility] Start: 01-26-2025 End: 01-26-2025 Patient encounter procedure 01/26/2025 6:00 PM EDT Office Visit [facility] [address] [place] [address] Mckayla Blas NP [address] [place] [address] [facility] Start: 01-16-2025 Medicare Annual Wellness (AWV) Medicare Annual Wellness (AWV) [facility] Start: 01-07-2025 Hemoglobin A1c measurement Diabetes: Hemoglobin A1C [facility] Start: 12-15-2024 End: 12-27-2025 MG Breast - bilateral Screening Bilateral screening mammogram Imaging Routine Encounter for screening mammogram for malignant neoplasm of breast Expected: 12/15/2024 (Approximate), Expires: 12/27/2025 [facility] Work Phone: Comment on above: Expected: 12/15/2024 (Approximate), Expires: 12/27/2025 Start: 12-13-2024 Screening for malignant neoplasm of breast Mammogram [facility] Start: 11-11-2024 Urine screening for protein Diabetes: Urine Protein Screening [facility] Start: 10-27-2024 End: 10-27-2024 Patient encounter procedure 10/27/2024 2:00 PM EDT Office Visit [facility] [address] [place] [address] Mckayla Blas NP [address] [place] [phone] [facility] Start: 10-08-2024 End: 10-08-2024 Patient encounter procedure 10/08/2024 11:20 AM EDT Office Visit [facility] [address] [place] [address] Rain Souza MD [address] [place] [address] [facility] Start: 08-27-2024 End: 08-27-2024 Patient encounter procedure 08/27/2024 5:30 PM EST Office Visit [facility] [address] [place] [address] Mckayla Blas NP [address] [place] [address] [facility] Start: 08-27-2024 End: 08-27-2025 25-hydroxyvitamin D3 [Mass/volume] in Serum or Plasma Vitamin D 25 hydroxy Lab Routine Vitamin deficiency Expected: 08/27/2024 (Approximate), Expires: 08/27/2025 [facility] Comment on above: Expected: 08/27/2024 (Approximate), Expires: 08/27/2025 Start: 08-27-2024 Hemoglobin A1c measurement Diabetes: Hemoglobin A1C [facility] Start: 08-27-2024 End: 08-27-2025 Hepatic function 2000 panel - Serum or Plasma Hepatic function panel Lab Routine Hyperlipidemia, unspecified (CMS/HCC) Expected: 08/27/2024 (Approximate), Expires: 08/27/2025 [facility] Comment on above: Expected: 08/27/2024 (Approximate), Expires: 08/27/2025 Start: 08-27-2024 End: 08-27-2025 Lipid 1996 panel - Serum or Plasma Lipid panel Lab Routine Mixed hyperlipidemia (CMS/HCC) Expected: 08/27/2024 (Approximate), Expires: 08/27/2025 [facility] Work Phone: Comment on above: Expected: 08/27/2024 (Approximate), Expires: 08/27/2025 Start: 08-27-2024 End: 08-27-2025 Microalbumin/Creatini ne panel in random Urine Microalbumin / creatinine, urine ratio Lab Routine Primary hypertension (CMS/HCC) Type 2 diabetes mellitus with complication, with long-term current use of insulin (CMS/HCC) Expected: 08/27/2024 (Approximate), Expires: 08/27/2025 [facility] Comment on above: Expected: 08/27/2024 (Approximate), Expires: 08/27/2025 Start: 08-27-2024 End: 08-27-2025 Urate [Mass/volume] in Serum or Plasma Uric acid Lab Routine Gout, unspecified cause, unspecified chronicity, unspecified site Expected: 08/27/2024 (Approximate), Expires: 08/27/2025 [facility] Comment on above: Expected: 08/27/2024 (Approximate), Expires: 08/27/2025 Start: 08-27-2024 End: 08-27-2025 Urinalysis complete panel - Urine Urinalysis with reflex microscopic (clean catch) Lab Routine Primary hypertension (CMS/HCC) Type 2 diabetes mellitus with complication, with long-term current use of insulin (CMS/HCC) Tobacco user Gout, unspecified cause, unspecified chronicity, unspecified site Expected: 08/27/2024 (Approximate), Expires: 08/27/2025 [facility] Comment on above: Expected: 08/27/2024 (Approximate), Expires: 08/27/2025 Start: 08-26-2024 End: 08-26-2024 Patient encounter procedure 08/26/2024 10:30 AM EST Office Visit [facility] [address] [place] [phone] Rain Souza MD [address] [place] [address] [facility] Start: 07-14-2024 End: 07-14-2024 Patient encounter procedure 07/14/2024 6:30 PM EST Office Visit [facility] [address] [place] [address] Mckayla Blas NP [address] [place] [address] [facility] Start: 07-14-2024 End: 07-14-2024 Patient encounter procedure 07/14/2024 10:10 AM EST Office Visit [facility] [address] [place] [phone] aRin Souza MD [address] [place] [address] [facility] Start: 06-06-2024 Influenza vaccination Influenza Vacc ine (#1) [facility] Comment on above: Postponed from 03/09 (Patient Refused) Start: 05-27-2024 End: 05-27-2024 Patient encounter procedure 05/27/2024 9:50 AM EST Office Visit [facility] [address] [place] [phone] Rain Souza MD [address] [place] [address] [facility] Start: 05-17-2024 Hemoglobin A1c measurement Diabetes: Hemoglobin A1C [facility] Start: 05-15-2024 End: 05-15-2024 Chart abstracting 05/15/2024 Abstract [facility] [address] [place] [address] Rain Souza MD [address] [place] [address] [facility] ENDOCRINOLOGY Start: 05-15-2024 End: 05-15-2024 Patient encounter procedure 05/15/2024 11:20 AM EST Office Visit [facility] ENDOCRINOLOGY [address] [place] [id number] Rain Souza MD [address] [place] [address] [facility] ENDOCRINOLOGY Start: 04-17-2024 End: 04-17-2024 Patient encounter procedure 04/17/2024 3:40 PM EDT Office Visit [facility] [address] [place] [address] Mckayla Blas NP [address] [place] [phone] [facility] Start: 04-14-2024 End: 04-14-2024 Patient encounter procedure 04/14/2024 11:00 AM EDT Office Visit [facility] [address] [place] [address] Mckayla Blas, SILVANO [address] [place] [phone] Arrived [facility] Comment on above: Arrived Start: 03-09-2024 Influenza vaccination Influenza Vacc ine (#1) [facility] Start: 02-19-2024 Hemoglobin A1c measurement Diabetes: Hemoglobin A1C [facility] Start: 11-24-2023 Urine screening for protein Diabetes: Urine Protein Screening [facility] Start: 11-23-2023 Screening for malignant neoplasm of breast Mammogram [facility] Start: 10-15-2023 End: 10-15-2023 Patient encounter procedure 10/15/2023 4:30 PM EDT Office Visit [facility] [address] [place] [address] Mckayla Blas NP [address] [place] [address] [facility] Start: 08-09-2023 Hemoglobin A1c measurement Diabetes: Hemoglobin A1C [facility] Start: 05-27-2021 Glaucoma screening Diabetes: R etinopathy Screening [facility] Start: 03-09-2020 Influenza vaccination Flu vacc ine (Season Ended) [place], [place] Start: 10-07-2018 Screening for malignant neoplasm of cervix [facility] Start: 2010 Lipid panel Lipid screen [place], [place] Start: 2000 Screening for malignant neoplasm of cervix HPV/Cotest [facility] Start: 1991 Screening for malignant neoplasm of cervix Cervical cancer screen [place], [place] Start: 1989 DTaP/Tdap/Td vaccine (1 - Tdap) DTaP/Tdap/Td vaccine (1 - Tdap) [place] Start: 1985 HIV screening HIV screen [place], [place] Start: 1970 Medicare Annual Wellness (AWV) Medicare Annual Wellness (AWV) [facility] Start: 1970 Screening for malignant neoplasm of colon [facility] BLOOD CULTURE 1 BLOOD CULTURE 1 Lab Routine 12/04/2024 4:44 PM EDT [facility] BLOOD CULTURE 2 BLOOD CULTURE 2 Lab Routine 12/04/2024 5:28 PM EDT [facility] Immunizations Immunization Date Immunization Notes Care Provider Fa cili 05-18-2023 influenza, injectabl e, quadrivalent, contains preservative Mckayla Blas NP Work Phone: [facility] 05-18-2023 influenza virus vacc ine, unspecified formulation Rain Souza MD Work Phone: [facility] 07-19-2021 SARS-CoV-2 (COVID-19 ) mRNA BNT-162b2 vax SARAH SILVIA [facility] 10-28-2020 SARS-CoV-2 (COVID-19 ) mRNA BNT-162b2 vax SARAH SILVIA [facility] 10-08-2020 SARS-CoV-2 (COVID-19 ) mRNA BNT-162b2 vax SARAH SILVIA [facility] 04-16-2017 influenza virus vacc ine, H5N1, A/ (national stockpile) Mckayla Blas 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 SALES 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 Work Phone: [facility] 04-16-2017 influenza virus vacc ine, unspecified formulation Rain Souza MD Work Phone: [facility] 04-16-2017 influenza, unspecifi ed formulation Elbert ARAUZ [facility] 04-16-2017 pneumococcal polysaccharide vaccine, 23 valent Rain Souza MD Work Phone: [facility] 05-10-2016 influenza virus vacc ine, H5N1, A/ (national stockpile) Mckayla Blas ENTERPRISE SALES EXECUTIVE Work Phone: [facility] 05-10-2016 influenza virus vacc ine, unspecified formulation Rain Souza MD Work Phone: [facility] 05-10-2016 influenza, unspecifi ed formulation Elbert ARAUZ [facility] 05-02-2013 influenza virus vacc ine, whole virus Rain Souza MD Work Phone: [facility] 05-02-2013 influenza, injectabl e, quadrivalent, contains preservative Mckayla Wan SCHAEFER Work Phone: [facility] 05-02-2013 influenza, whole Elbert ARAMBULA [facility] 01-29-1998 measles, mumps and rubella virus vaccine Rain Souza MD Work Phone: [facility] Healthcare Payers Date Payer Category Payer Unknown [id number] 2023 Medicare (Managed Care) 1.2. [id number] 2023 Private Health Insurance [id number] 2023 Medicare [id number] 2018 Medicaid MEDICAID [facility] [id number] 2018-Present [phone] [address] [place] [address] Medicaid [id number] 2013 Medicare [id number] 1970 Unknown [id number] 2.16.840.1.578843.3.579.2.6 47 1970 Unknown [id number] 2.16.840.1.937516.3.579.2.5 93 1970 Unknown [id number] 2.16.840.1.762604.3.579.2.5 93 1970 Unknown [id number] 2.16.840.1.985084.3.579.2.5 93 1970 Unknown [id number] 2.16.840.1.503827.3.579.2.5 93 1970 Unknown [id number] 2.16.840.1.348982.3.579.2.5 93 1970 Unknown [id number] 2.16.840.1.917640.3.579.2.5 93 1970 Unknown [id number] 2.16.840.1.005489.3.579.2.5 93 1970 Unknown [id number] 2.16.840.1.772240.3.579.2.5 93 1970 Unknown [id number] 2.16.840.1.748066.3.579.2.5 93 1970 Unknown [id number] 2.16.840.1.773621.3.579.2.5 93 1970 Unknown [id number] 2.16.840.1.295558.3.579.2.5 93 1970 Unknown [id number] ..840.1.167893.3.579.2.5 93 1970 Unknown [id number] 2.16.840.1.790674.3.579.2.5 93 1970 Unknown [id number] 2.16.840.1.194251.3.579.2.5 93 1970 Unknown [id number] 2.16.840.1.406765.3.579.2.5 93 1970 Unknown [id number] ..840.1.251093.3.579.2.5 93 1970 Unknown [id number] 2.16.840.1.591220.3.579.2.5 93 1970 Unknown [id number] 2.16.840.1.707073.3.579.2.5 93 1970 Unknown [id number] 2.16.840.1.544293.3.579.2.5 93 1970 Unknown [id number] 2.16.840.1.131374.3.579.2.5 93 1970 Unknown [id number] 2.16.840.1.727704.3.579.2.5 93 1970 Unknown [id number] 2.16.840.1.151541.3.579.2.5 93 1970 Unknown [id number] 2.16.840.1.688145.3.579.2.7 27 1970 Unknown [id number] 2.16.840.1.677510.3.579.2.7 27 1970 Unknown [id number] 2.16.840.1.249760.3.579.2.1 259 1970 Unknown [id number] 2.16.840.1.513927.3.579.2.1 259 1970 Unknown [id number] 2.16.840.1.115742.3.579.2.1 259 1970 Unknown [id number] 2.16.840.1.422127.3.579.2.1 259 1970 Unknown [id number] 2.16.840.1.063967.3.579.2.1 259 1970 Unknown [id number] 2.16.840.1.761247.3.579.2.1 259 1970 Unknown [id number] 2.16.840.1.080253.3.579.2.1 259 1970 Unknown [id number] 2.16.840.1.318807.3.579.2.1 259 1970 Unknown [id number] 2.16.840.1.879449.3.579.2.1 259 1970 Unknown [id number] 2.16.840.1.893285.3.579.2.1 96 1970 Unknown [id number] 2.16.840.1.596659.3.579.2.1 96 1970 Unknown [id number] 2.16.840.1.940127.3.579.2.1 96 1959 Medicaid [id number] 1959 Private Health Insurance [id number] 1959 Unknown [id number] 2.16.840.1.070216.19 Social History Date Type Detail Facility Start: 02-17-2014 End: 01-29-2025 Tobacco smoking status NHIS Current every day smoker [place], [place] Start: 02-17-1994 History of tobacco use Cigarette Smo ker [place] Start: 02-17-2014 End: 08-26-2024 Cigarettes smoked current (pack per day) - Reported [place] Start: 02-17-2014 Alcohol intake Current drinke r of alcohol (finding) [place] Start: 02-17-2014 Alcohol Comment Rare [facility] [place], [place] Start: 1970 Sex Assigned At Not on file M [place], [place] Exposure to SARS-CoV -2 (event) Unable to assess [place] Start: 02-06-2022 Tobacco smoking status Smoker (findi ng) [facility] Start: 07-10-2023 End: 08-26-2024 Sex Assigned At Female [facility] Start: 11-15-2022 End: 06-11-2024 Tobacco smoking status Heavy tobacco smoker (finding) [facility] Start: 07-10-2023 End: 01-29-2025 Tobacco use [...] Equipment Origin al Text Equipment Identifier Dates [id number] Start: 01-18-2024 USE TO TEST BLOO D SUGAR 4 TIMES DAILY [id number] Start: 07-07-2024 Functional Status Date Assessment Result Facility 01-26-2025 Patient Health [facility] ionnaire 2 item (PHQ-2) [Reported] [facility] 01-26-2025 Trouble falling or s taying asleep, or sleeping too much Not at all 01/26/2025 4:13 PM EDT Mychart, Generic Not at all [facility] 01-26-2025 Feeling tired or hav ing little energy Not at all 01/26/2025 4:13 PM EDT Mychart, Generic Not at all [facility] 01-26-2025 Poor appetite or overeating Not at all 01/26/2025 4:13 PM EDT Mychart, Generic Not at all [facility] 01-26-2025 Feeling bad about yourself-or that you are a failure or have let yourself or your family down Not at all 01/26/2025 4:13 PM EDT Mychart, Generic Not at all [facility] 01-26-2025 Trouble concentratin g on things, such as reading the newspaper or watching television Not at all 01/26/2025 4:13 PM EDT Mychart, Generic Not at all [facility] 01-26-2025 Moving or speaking s o slowly that other people could have noticed. Or the opposite - being so fidgety or restless that you have been moving around a lot more than usual Not at all 01/26/2025 4:13 PM EDT Mychart, Generic Not at all [facility] 01-26-2025 Thoughts that you wo uld be better off , or of hurting yourself in some way Not at all 01/26/2025 4:13 PM EDT Mychart, Generic Not at all [facility] 06-11-2024 Functional Status N/A [facility] 11-15-2022 Functional Status N/A [facility] 02-06-2022 Functional Status N/A [facility] Clinical Notes 01-19-2022 to 02-04-2025 Rain [...] Follow-up as planned in 6 months. Thanks! [facility] 01-29-2025 History of Present illness Narrative [...] mg, Oral, 2 times daily HYDROcodone-acetaminophen ([place]) 5-325 MG tablet 1 tablet, 3 times [...] 09/17/2023 Angiomyolipoma Anxiety and depression 07/10/2023 Asthma ([facility]) 07/10/2023 Body mass index (BMI) 50.0-59.9, adult [place] Cellulitis of left lower extremity Cervical cancer ([facility]) 09/17/2023 Chronic pain of both knees 09/17/2023 COPD (chronic obstructive pulmonary disease) ([facility]) 07/10/2023 COPD exacerbation ([facility]) 09/17/2023 Decreased functional mobility 09/17/2023 Diabetic neuropathy ([facility]) 07/10/2023 Dietary counseling and surveillance Edema 07/10/2023 Elevated sed rate Elevated WBC count Essential (primary) hypertension GERD (gastroesophageal reflux disease) 09/17/2023 Hyperlipidemia 09/17/2023 Hypertension 07/10/2023 Insomnia 09/17/2023 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 ([facility]) Lower extremity edema 09/17/2023 Mixed hyperlipidemia Morbid (severe) obesity due to excess calories ([facility]) Obstructive sleep apnea 07/10/2023 PAD (peripheral artery disease) 09/17/2023 Pancreatitis ([facility]) 09/17/2023 Pneumonia 09/17/2023 Proteinuria, unspecified Pulmonary hypertension ([facility]) 09/17/2023 Radiculopathy, lumbar region 09/17/2023 Tobacco user 09/17/2023 Type 2 diabetes mellitus with complication, with long-term current use of insulin ([facility]) 07/10/2023 Unilateral primary osteoarthritis, right hip 09/17/2023 [...] D deficiency Primary hypertension Insulin long-term use ([facility]) Hyperlipemia, mixed Microalbuminuria Class 3 severe obesity due to excess calories with serious comorbidity and body mass index (BMI) of 50.0 to 59.9 in adult ([facility]) Diet and exercise reviewed with the patient Follow up in about 4 months (around 06/01/2025). 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 Associated Problem(s): COPD (chronic [...] mg, Oral, 2 times daily HYDROcodone-acetaminophen ([place]) 5-325 MG tablet 1 tablet, 3 times [...] 09/17/2023 Angiomyolipoma Anxiety and depression 07/10/2023 Asthma ([facility]) 07/10/2023 Body mass index (BMI) 50.0-59.9, adult ([facility]) Cellulitis of left lower extremity Cervical cancer ([facility]) 09/17/2023 Chronic pain of both knees 09/17/2023 COPD (chronic obstructive pulmonary disease) ([facility]) 07/10/2023 COPD exacerbation ([facility]) 09/17/2023 Decreased functional mobility 09/17/2023 Diabetic neuropathy ([facility]) 07/10/2023 Dietary counseling and surveillance Edema 07/10/2023 Elevated sed rate Elevated WBC count Essential (primary) hypertension GERD (gastroesophageal reflux disease) 09/17/2023 Hyperlipidemia 09/17/2023 Hypertension 07/10/2023 Insomnia 09/17/2023 senior living (current) use of insulin ([facility]) Lower extremity edema 09/17/2023 Mixed hyperlipidemia Morbid (severe) obesity due to excess calories ([facility]) Obstructive sleep apnea 07/10/2023 PAD (peripheral artery disease) 09/17/2023 Pancreatitis ([facility] 09/17/2023 Pneumonia 09/17/2023 Proteinuria, unspecified Pulmonary hypertension ([facility]) 09/17/2023 Radiculopathy, lumbar region 09/17/2023 Tobacco user 09/17/2023 Type 2 diabetes mellitus with complication, with long-term current use of insulin ([facility]) 07/10/2023 Unilateral primary osteoarthritis, right hip 09/17/2023 [...] List Items Addressed This Visit Diabetic neuropathy ([facility]) Continue with cintia hudson mgmt is prescribing OARRS reviewed Fu in 3 months Goal: tighter glucose control, this has been improving, latest A1c is 7.4%!!! 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 Hypertension Please check blood pressure daily and record DASH diet Limit caffeine Take medication as directed Contact office if chest pain, pressure, dizziness, shortness of breath, swelling legs Recommend slow position changes Current meds: hydralazine, lisinopril, Relevant Medications hydrALAZINE (Apresoline) 25 MG tablet lisinopril 20 MG tablet Type 2 diabetes mellitus with complication, with long-term current use of insulin ([facility]) Check blood sugars daily, notify if <70 [...] MG tablet Pulmonary hypertension (HCC) Has seen [facility] Cardiology Hyperlipidemia [...] (severe) obesity due to excess calories (CMS-HCC) Discussed with patient their BMI (actual, verses [...] Relevant Medications omeprazole (PriLOSEC) [address] tanja Other Visit Diagnoses Type 2 diabetes mellitus [...] basis documented in this encounter [facility] 01-26-2025 Instructions Mckayla Blas NP - 01/26/2025 6:00 PM EDT Please call the [facility] to schedule your mammogram: [phone]- ext [phone] documented in this encounter [facility] 01-06-2025 Note Cardiovascular Medic ine [facility] SUBJECTIVE Chief Complaint Patient presents with Congestive Heart Failure Hypertension Hyperlipidemia Mitzi Macias is a 54 y.o. female here for follow-up. PMHx: HFpEF, HTN, HLD, DM, longstanding heavy smoker, COPD, DANIEL, morbid obesity HPI 01/06/2025 Since last seen she was admitted to [facility] for AMS on 12/05/2024. She was [...] with long-term current use of insulin ([facility]) Unilateral primary osteoarthritis, right hip Vaginal yeast infection Venous insufficiency Bad odor of urine Critical limb ischemia of right lower extremity ([facility]) Hyperpigmentation of skin 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 2 diabetes mellitus ([facility]) Myelolipoma of adrenal gland Venous ulcer of right leg ([facility]) Chronic diastolic heart failure ([facility]) Antibiotic-induced yeast infection Cellulitis of left lower extremity Cigarette nicotine dependence without complication Fever 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 ([facility]) senior living current use of inhaled steroid Vitamin D deficiency, unspecified Vitamin deficiency Past Medical History: Diagnosis Date COPD (chronic obstructive pulmonary disease) ([facility]) Diabetes mellitus ([facility]) Hyperlipidemia Hypertension Sleep apnea Family History Problem [...] , Rfl: ergocalciferol (Vitamin D-2) 1.25 MG (67960 Units) capsule, Take 1.25 mg by mouth., [...] at bedtime., Disp: , Rfl: HYDROcodone-acetaminophen ([place]) 5-325 mg tablet, TAKE 1 TABLET BY MOUTH THREE TIMES A DAY NEEDED FOR PAIN MUST LAST 30 DAYS, Disp: , Rfl: insulin aspart (NovoLOG) 100 unit/mL (3 mL) injection pen, Novolog Flexpen U-100 Insulin aspart 100 unit/mL (3 mL) subcutaneous, Disp: , Rfl: insulin glargine (Lantus Solostar U-100 Insulin) 100 unit/mL (3 mL) injection pen (more content not included)... [facility] 01-06-2025 Note Patient is here toda [...] weight gain. Cardiovascular: Positive for leg swelling. [facility] 12-09-2024 History of Present illness Narrative [...] bad light. She was ultimately taken to [facility] ER, no tox screen was done [...] mg, Oral, 2 times daily HYDROcodone-acetaminophen ([place]) 5-325 MG tablet 1 tablet, 3 times [...] Albuminuria 09/17/2023 Angiomyolipoma Anxiety and depression ([facility]) 07/10/2023 Asthma 07/10/2023 Body mass index (BMI) 50.0-59.9, adult ([facility]) Cellulitis of left lower extremity Cervical cancer ([facility]) 09/17/2023 Chronic pain of both knees 09/17/2023 COPD (chronic obstructive pulmonary disease) ([facility]) 07/10/2023 COPD exacerbation ([facility]) 09/17/2023 Decreased functional mobility 09/17/2023 Diabetic neuropathy ([facility]) 07/10/2023 Dietary counseling and surveillance Edema 07/10/2023 Elevated sed rate Elevated WBC count Essential (primary) hypertension ([facility]) GERD (gastroesophageal reflux disease) 09/17/2023 Hyperlipidemia ([facility]) 09/17/2023 Hypertension ([facility]) 07/10/2023 Insomnia 09/17/2023 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 [place] Lower extremity edema 09/17/2023 Mixed hyperlipidemia ([facility] Morbid (severe) obesity due to excess calories ([facility]) Obstructive sleep apnea 07/10/2023 PAD (peripheral artery disease) ([facility]) 09/17/2023 Pancreatitis 09/17/2023 Pneumonia 09/17/2023 Proteinuria, unspecified Pulmonary hypertension ([facility]) 09/17/2023 Radiculopathy, lumbar region 09/17/2023 Tobacco user 09/17/2023 Type 2 diabetes mellitus with complication, with long-term current use of insulin ([facility]) 07/10/2023 Unilateral primary osteoarthritis, right hip 09/17/2023 [...] Problem List Items Addressed This Visit Hypertension ([facility]) Please check blood pressure daily and record DASH diet Limit caffeine Take medication as directed Contact office if chest pain, pressure, dizziness, shortness of breath, swelling legs Recommend slow position changes Current meds: hydralazine, lisinopril, Type 2 diabetes mellitus with complication, with long-term current use of insulin ([facility]) Check blood sugars daily, notify if <70 [...] secondary to her steroids Anxiety and depression ([facility]) Current meds: elavil, duloxtine, COPD exacerbation ([facility]) Recent ER visit for unresponsiveness , found to have fever and elevated WBC Sent home with steroids and atb Breathing is better and she feels back to her normal baseline Does have home O2, she is not wearing this today Pulmonary hypertension ([facility]) Has seen [facility] Cardiology Morbid (severe) obesity due to excess calories ([facility]) Discussed with patient their BMI (actual, verses [...] today documented in this encounter [facility] 12-09-2024 Instructions Mckayla Blas NP - 12/09/2024 10:00 AM EDT Keep appt with wound care today Keep fu with me, sooner if needed documented in this encounter [facility] 10-27-2024 History of Present illness Narrative [...] mg, Oral, 2 times daily HYDROcodone-acetaminophen ([place]) 5-325 MG tablet 1 tablet, 3 times [...] Albuminuria 09/17/2023 Angiomyolipoma Anxiety and depression ([facility]) 07/10/2023 Asthma 07/10/2023 Body mass index (BMI) 50.0-59.9, adult ([facility]) Cellulitis of left lower extremity Cervical cancer [facility] 07[facility]10[place]2023 Insomnia 09/17/2023 senior living (current) use of insulin ([facility] [...] Items Addressed This Visit Diabetic neuropathy ([facility]/HCC) - Primary Continue with cintia hudson mgmt is prescribing OARRS reviewed Fu in 3 months Goal: tighter glucose control, this has been improving, latest A1c is 7.4%!!! Hypertension ([facility]) Please check blood pressure daily and record DASH diet Limit caffeine Take medication as directed Contact office if chest pain, pressure, dizziness, shortness of breath, swelling legs Recommend slow position changes Current meds: hydralazine, lisinopril, Relevant Medications hydrALAZINE (Apresoline) 25 MG tablet lisinopril 20 MG tablet Type 2 diabetes mellitus with complication, with long-term current use of insulin ([facility]) Check blood sugars daily, notify if <70 [...] Relevant Medications ergocalciferol (Vitamin D2) 1.25 MG (00748 UT) capsule Gastro-esophageal reflux disease without esophagitis [...] furosemide Associated Problem(s): Chronic diastolic heart failure (CMS/[facility]) Current meds; asa, farxiga, lasix, hydralazine, lisinopril, Follows with [facility] Reviewed 08/02 notes Associated Problem(s): Hypertension (CMS/[facility]) Please check blood pressure daily and record DASH diet Limit caffeine Take medication as directed Contact office if chest pain, pressure, dizziness, shortness of breath, swelling legs Recommend slow position changes Current meds: hydralazine, lisinopril, Associated Problem(s): COPD (chronic obstructive pulmonary disease) (CMS/HCC) Follows with [facility] Needs smoking cessation Current meds: duoneb, albuterol, daliresp, Associated Problem(s): Diabetic neuropathy (CMS/HCC) Continue with cintia hudson is prescribing OARRS reviewed Fu in 3 months Goal: tighter glucose control, this has been improving, latest A1c is 7.4%!!! documented in this encounter [facility] 10-27-2024 Instructions Mckayla Blas NP - 10/27/2024 2:00 PM EDT No dose changes in meds You will be due for mammogram I will send order to [facility], they should call you to schedule If no call, please call [phone] documented in this encounter [facility] 10-08-2024 History of Present illness Narrative [...] 15 mg weekly, farxia 5 mg daily. 05/2024 follow up visit on 05/27/2024 , [...] or chew. ergocalciferol (Vitamin D2) 1.25 MG (02153 UT) capsule TAKE 1 CAPSULE BY MOUTH [...] mg, Oral, 2 times daily HYDROcodone-acetaminophen ([place]) 5-325 MG tablet 1 tablet, 3 times [...] [place] 07/10/2023 Asthma [place] 07/10/2023 Body mass index (BMI) 50.0-59.9, adult ([facility]) Cellulitis of left lower extremity Cervical cancer ([facility]) 09/17/2023 Chronic pain of both knees 09/17/2023 COPD (chronic obstructive pulmonary disease) [place] 07/10/2023 COPD exacerbation [place] 09/17/2023 Decreased functional mobility 09/17/2023 Diabetic neuropathy ([facility]) 07/10/2023 Dietary counseling and surveillance Edema 07/10/2023 Elevated sed rate Elevated WBC count Essential (primary) hypertension ([facility]) GERD (gastroesophageal reflux disease) 09/17/2023 Hyperlipidemia [place] 09/17/2023 Hypertension [place] 07/10/2023 Insomnia 09/17/2023 senior living (current) use of insulin ([facility] Lower extremity edema 09/17/2023 Mixed hyperlipidemia ([facility] Morbid (severe) obesity due to excess calories ([facility] Obstructive sleep apnea 07/10/2023 PAD (peripheral artery disease) ([facility] 09/17/2023 Pancreatitis 09/17/2023 Pneumonia 09/17/2023 Proteinuria, unspecified Pulmonary hypertension ([facility]) 09/17/2023 Radiculopathy, lumbar region 09/17/2023 Tobacco user [...] with long-term current use of insulin ([facility]) - POCT glucose manually resulted - POCT glycosylated hemoglobin (Hb A1C) docked device We will continue with Lantus 58, lispro 02-16-12 according to meal size, Mounjaro 15 mg once weekly, Farxiga 5 mg once a day. Encounter for dietary consultation Vitamin D deficiency Primary hypertension ([facility]) Insulin long-term use ([facility]) Hyperlipemia, mixed ([facility]) Microalbuminuria Class 3 severe obesity due to excess calories with serious comorbidity and body mass index (BMI) of 50.0 to 59.9 in adult Diet and exercise reviewed with the patient Follow up in about 4 months (around 02/07/2025). documented in this encounter [facility] 08-27-2024 History of Present illness Narrative [...] or chew. 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 [place] Lower extremity edema 09/17/2023 Mixed hyperlipidemia ([facility] Morbid (severe) obesity due to excess calories ([facility] Obstructive sleep apnea 07/10/2023 PAD (peripheral artery disease) ([facility]) 09/17/2023 Pancreatitis 09/17/2023 Pneumonia 09/17/2023 Proteinuria, unspecified Pulmonary hypertension ([facility]) 09/17/2023 Radiculopathy, lumbar region 09/17/2023 Tobacco user [...] List Items Addressed This Visit Diabetic neuropathy (CMS/[facility]) Continue with cintia hudson mgmt is prescribing OARRS reviewed Fu in 3 months Goal: tighter glucose control Hypertension ([facility]) Please check blood pressure daily and record [...] with long-term current use of insulin ([facility]) Check blood sugars daily, notify if <70 [...] / creatinine, urine ratio Anxiety and depression ([facility]) - Primary Current meds: elavil, duloxtine, PHQ [...] PPI Malignant neoplasm of cervix uteri, unspecified ([facility]) Had in the past, had hysterectomy Tobacco user The patient has been advised of the risks of continued smoking: stroke, NM, all forms of cancer, lung disease, and [...] of the risks of continued smoking: stroke, NM, all forms of cancer, lung disease, and [...] Asthma (CMS/HCC) Current meds: albuterol, duoneb, 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 Associated Problem(s): Obstructive [...] control documented in this encounter [facility] 08-08-2024 Note [facility] Subjective Mitzi Macias is a 53 [...] Diagnosis Date COPD (chronic obstructive pulmonary disease) ([facility]) Diabetes mellitus ([facility]) Hyperlipidemia Hypertension Sleep apnea Past Surgical History: [...] , Rfl: ergocalciferol (Vitamin D-2) 1.25 MG (39119 Units) capsule, Take 1.25 mg by mouth., [...] at bedtime., Disp: , Rfl: HYDROcodone-acetaminophen ([place]) 5-325 mg tablet, TAKE 1 TABLET BY [...] TWICE DAILY, Disp: (more content not included)... [facility] 07-14-2024 History of Present illness [...] or chew. 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 [facility] [...] Items Addressed This Visit Diabetic neuropathy ([facility]) Continue with lyrica OARRS reviewed Fu in 3 months COPD (chronic obstructive pulmonary disease) ([facility]) Stable at this time, no changes in meds Encouraged smoking cessation Cont with dr Yañez Hypertension ([facility]) - Primary Please check blood pressure daily and record DASH diet Limit caffeine Take medication as directed Contact office if chest pain, pressure, dizziness, shortness of breath, swelling legs Recommend slow position changes Current meds: hydralazine, lisinopril, Type 2 diabetes mellitus with complication, with long-term current use of insulin ([facility]) Check blood sugars daily, notify if <70 [...] take over prescribing PAD (peripheral artery disease) ([facility]) Asa, statin Quit smoking BP and DM [...] of the risks of continued smoking: stroke, NM, all forms of cancer, lung disease, and [...] 1 cm to 4 cm in diameter ([facility]) Continue with Urology Kidney stone Continue with Urology Non-seasonal allergic rhinitis Relevant Medications cetirizine (ZyrTEC) 10 MG tablet Critical limb ischemia of right lower extremity ([facility]) Saw vascular, does have narrowing in arteries in legs, and thus the wounds not healing At this point they strongly urge to quit smoking or risk limb amputation Cont asa and statin Also good blood pressure and sugar control Venous ulcer of right leg ([facility]) Encounter for smoking cessation counseling Relevant Medications nicotine (Nicoderm, Step 1) 21 MG/24HR patch Other Visit Diagnoses Type 2 diabetes mellitus with unspecified complications ([facility]) Quitting smokinppd, chantix not helped, ] Face time with pt, spent 15 minutes with pt Associated Problem(s): Tobacco user The patient has been advised of the risks of continued smoking: stroke, NM, all forms of cancer, lung disease, and [...] with long-term current use of insulin ([facility]) Check blood sugars daily, notify if <70 [...] PPI Associated Problem(s): PAD (peripheral artery disease) ([facility]) Asa, statin Quit smoking BP and DM control Associated Problem(s): Hypertension ([facility]) Please check blood pressure daily and record DASH diet Limit caffeine Take medication as directed Contact office if chest pain, pressure, dizziness, shortness of breath, swelling legs Recommend slow position changes Current meds: hydralazine, lisinopril, Associated Problem(s): COPD (chronic obstructive pulmonary disease) ([facility]) Stable at this time, no changes in meds Encouraged smoking cessation Cont with dr Yañez Associated Problem(s): Diabetic neuropathy ([facility]) Continue with tristan EAST reviewed Fu in 3 months documented in this encounter [facility] 06-11-2024 Hospital Discharge instructions Patient Education [...] require a prescription. You can also purchase vick-onv-bjlmzmw medicines. Medicines may have nicotine in them [...] and encouragement. Call telephone quitlines, such as 9-731-EODT-NOW, reach out to support groups, or work [...] provider. Document Revised: 06/16/2022 Document Reviewed: 06/16/2022 [employer] Patient Education 2023 [employer]. 06/11/2024 10:39:22 Dietary Guidelines to Help Prevent [...] include: ?8 oz (237 mL) of milk, tthwgrq-wecabvnxhmlv-dsnxv milk, and calcium-fortifiedfruit juice. Calcium-fortified means that [...] ?Spinach (cooked), rhubarb, beets, sweet potatoes, and French chard. ?Peanuts. ?Potato chips, barbadian fries, and baked potatoes with skin on. ?Nuts and nut products. ?Chocolate. If you regularly take a diuretic medicine, make sure to eat at least 1 or 2 servings of fruits or vegetables that are high in potassium each day. These include: ?Avocado. ?Banana. ?Chicot, prune, carrot, or tomato juice. ?Baked potato. [...] magnesium, fish oil, or vitamin B6. Take qpda-yzu-aurkonb and prescription medicines only as told by [...] Casseroles. Pizza. Lasagna. Frozen meals. Potato chips. Thai fries. The items listed above may not [...] provider. Document Revised: 10/05/2022 Document Reviewed: 10/05/2022 [employer] Patient Education 2023 [employer] System. Follow Up Care 05/06/2024 08:24:56 With:REGLA PHIPPS, Elbert Joya, URL Address: [facility] [address], [place] [address]- When: Unknown [facility] 05-27-2024 History of Present illness Narrative [...] or chew. ergocalciferol (Vitamin D2) 1.25 MG (45845 UT) capsule TAKE 1 CAPSULE BY MOUTH ONE TIME PER WEEK furosemide (LASIX) 20 mg, Oral, Daily PRN, Take in the afternoon as needed furosemide (LASIX) 40 mg, Oral, Daily Glucose Blood (ACCU-CHEK JAQUI PLUS ) 4 times daily hydrALAZINE (APRESOLINE) 25 mg, Oral, 2 times daily HYDROcodone-acetaminophen ([place]) 5-325 MG tablet 1 tablet, 3 times [...] Albuminuria 09/17/2023 Angiomyolipoma Anxiety and depression ([facility]) 07/10/2023 Asthma ([facility]) 07/10/2023 Body mass index (BMI) 50.0-59.9, adult ([facility]) Cellulitis of left lower extremity Cervical cancer ([facility]) 09/17/2023 Chronic pain of both knees 09/17/2023 COPD (chronic obstructive pulmonary disease) ([facility]) 07/10/2023 COPD exacerbation ([facility]) 09/17/2023 Decreased functional mobility 09/17/2023 Diabetic neuropathy ([facility]) 07/10/2023 Dietary counseling and surveillance Edema 07/10/2023 Elevated sed rate Elevated WBC count GERD (gastroesophageal reflux disease) 09/17/2023 Hyperlipidemia [place] 09/17/2023 Hypertension [place] 07/10/2023 Insomnia 09/17/2023 senior living (current) use of insulin ([facility] Lower extremity edema 09/17/2023 Morbid (severe) obesity due to excess calories ([facility] Obstructive sleep apnea 07/10/2023 PAD (peripheral artery disease) ([facility] 09/17/2023 Pancreatitis 09/17/2023 Pneumonia 09/17/2023 Proteinuria, unspecified Pulmonary hypertension ([facility]) 09/17/2023 Radiculopathy, lumbar region 09/17/2023 Tobacco user [...] with long-term current use of insulin ([facility]) - POCT glucose manually resulted - POCT glycosylated hemoglobin (Hb A1C) docked device We will continue with Lantus 58, lispro 02/16/12 according to meal size, Mounjaro 15 mg once weekly, Farxiga 5 mg once a day Encounter for dietary consultation Vitamin D deficiency Primary hypertension ([facility]) To follow with her PCP Insulin long-term use ([facility]) Hyperlipemia, mixed ([facility]) Continue with Zocor 10 mg once daily Microalbuminuria Class 3 severe obesity due to excess calories with serious comorbidity and body mass index (BMI) of 50.0 to 59.9 in adult ([facility]) Diet and exercise reviewed with the patient Follow up in about 3 months (around 08/27/2024). documented in this encounter [facility] 04-14-2024 History of Present illness Narrative Associated Problem(s): Hyperpigmentation of skin Will try cerevue ointment to see if helps Associated Problem(s): Tobacco user Urged to quit Associated Problem(s): Type 2 diabetes mellitus with complication, with long-term current use of insulin ([facility]) Check blood sugars daily, follow w Endo. [...] being taken. She does not see a fountain helper.Eye exam is not current. Hypertension This is [...] or chew. ergocalciferol (Vitamin D2) 1.25 MG (00403 UT) capsule TAKE 1 CAPSULE BY MOUTH ONE TIME PER WEEK furosemide (LASIX) 20 mg, Oral, Daily PRN, Take in the afternoon as needed furosemide (LASIX) 40 mg, Oral, Daily Glucose Blood (ACCU-CHEK JAQUI PLUS ) 4 times daily HumaLOG KWIKPEN 100 UNIT/ML injection Subcutaneous hydrALAZINE (APRESOLINE) 25 mg, Oral, 2 times daily HYDROcodone-acetaminophen ([place]) 5-325 MG tablet 1 tablet, 3 times [...] Albuminuria 09/17/2023 Angiomyolipoma Anxiety and depression ([facility]) 07/10/2023 Asthma ([facility]) 07/10/2023 Cellulitis of left lower extremity Cervical cancer ([facility]) 09/17/2023 Chronic pain of both knees 09/17/2023 COPD (chronic obstructive pulmonary disease) ([facility]) 07/10/2023 COPD exacerbation ([facility]) 09/17/2023 Decreased functional mobility 09/17/2023 Diabetic neuropathy ([facility]) 07/10/2023 Edema 07/10/2023 Elevated sed rate Elevated WBC count GERD (gastroesophageal reflux disease) 09/17/2023 Hyperlipidemia ([facility]) 09/17/2023 Hypertension ([facility]) 07/10/2023 Insomnia 09/17/2023 Lower extremity edema 09/17/2023 Obstructive sleep apnea 07/10/2023 PAD (peripheral artery disease) [place] 09/17/2023 Pancreatitis 09/17/2023 Pneumonia 09/17/2023 Pulmonary hypertension ([facility]) 09/17/2023 Radiculopathy, lumbar region 09/17/2023 Tobacco user [...] Items Addressed This Visit Diabetic neuropathy ([facility]) Continue with tristan EAST reviewed Fu in 3 months Relevant Medications pregabalin (Lyrica) 300 MG capsule COPD (chronic obstructive pulmonary disease) ([facility]) - Primary Stable at this time, no changes in meds Encouraged smoking cessation Cont with dr Yañez Hypertension ([facility]) Stable on current meds Refill meds Relevant Medications hydrALAZINE (Apresoline) 25 MG tablet lisinopril 20 MG tablet Type 2 diabetes mellitus with complication, with long-term current use of insulin ([facility]) Check blood sugars daily, follow w Endo. [...] 81 MG chewable tablet Anxiety and depression ([facility]) Relevant Medications DULoxetine (Cymbalta) [address] agrawal Bilateral lower extremity edema Stable on current [...] this encounter [facility] 11-15-2022 Hospital Discharge instructions Patient Education [...] include: ?8 oz (237 mL) of milk, pzgfhqc-nnhdkthfookx-nvgji milk, and calcium-fortifiedfruit juice. Calcium-fortified means that [...] ?Spinach (cooked), rhubarb, beets, sweet potatoes, and French chard. ?Peanuts. ?Potato chips, barbadian fries, and baked potatoes with skin on. ?Nuts and nut products. ?Chocolate. If you regularly take a diuretic medicine, make sure to eat at least 1 or 2 servings of fruits or vegetables that are high in potassium each day. These include: ?Avocado. ?Banana. ?Chicot, prune, carrot, or tomato juice. ?Baked potato. [...] magnesium, fish oil, or vitamin B6. Take dbcg-rsf-clbllfs and prescription medicines only as told by [...] Casseroles. Pizza. Lasagna. Frozen meals. Potato chips. Thai fries. The items listed above may not [...] provider. Document Revised: 03/06/2022 Document Reviewed: 03/06/2022 [employer] Patient Education 2022 [employer]. Follow Up Care 02/06/2022 11:44:09 With:SARAH VEGA PA-C, URL Address: [address] [place] [address] When: Unknown [facility] [...] maintain her on pain medication with [place] 5/325 t.i.d., diclofenac 75 mg b.i.d. Her [...] at this point. A refill for [place] 5/325 t.i.d. and diclofenac 75 mg b.i.d. [...] Medications include Lyrica 300 mg b.i.d., [place] 5/325 t.i.d., diclofenac 75 mg b.i.d. and [...] medications today. We will maintain Lyrica, [place] and diclofenac at the set dose and [...] include Tylenol, Lyrica 300 mg b.i.d., [place] 5/325 t.i.d., amitriptyline, diclofenac and duloxetine. Patient's [...] to the DANIEL. Thrombocytopenia is unclear etiology. [facility] 08-15-2022 Evaluation note* Encounter Date Diagnosis [...] follow with Dr. Souza and Dr. Arauz. [facility] 08-01-2022 Hospital Discharge instructions Patient Education [...] fried and sweet foods. General instructions Take shhb-xme-sbdgdgy and prescription medicines only as told by [...] 04/21/2010 Document Revised: 10/16/2019 Document Reviewed: 07/11/2018 [employer] Patient Education 2020 [employer]. Follow Up Care 01/05/2022 12:02:03 With:REGLA PHIPPS, Elbert Joya, URL Address: [facility] [address] [place] [address] [phone] When:Within 6 Month(s) Comments:w/ repeat CT A/P [...] pattern and the patient tolerated it well. [facility] Signed and Approved by: GIL VALENZUELA . 01/27/2022 14:15:00[facility]07-14-2022 NoteCONSULTATION CONSULTATION DATE: 01/19/2022 This is [...] Medications include Lyrica 300 mg b.i.d., [place] 5/325 t.i.d., diclofenac 75 mg b.i.d. and [...] in three months' time unless otherwise indicated. [facility] Signed and Approved by: GIL VALENZUELA . 01/27/2022 14:15:00[facility] HospitalEvaluation + Plan note Future Appointments Appointment Date:08/14/2022 09:15:00 AM Scheduled Provider:Elbert ARAUZ MD Location:[facility] Appointment Type:URO Office Visit [facility] evaluation + Plan note Future Appointments Appointment Date:04/22/2024 10:00:00 AM Scheduled Provider:SARAH VEGA PA-C Location:[facility] Appointment Type:URO Office Visit [facility] [facility] evaluation note* Diagnosis Type 2 diabetes mellitus with unspecified complications ([facility]) Edema, unspecified Edema [facility] encounter [facility] Diagnosis Vaginal yeast infection- Primary Candidiasis of vulva and vagina documented in this encounter [facility]* Diagnosis Primary hypertension ([facility]/HCC)- Primary Unspecified essential hypertension Insomnia Insomnia, unspecified Type 2 diabetes mellitus with complication, with long-term current use of insulin ([facility]) Non-seasonal allergic rhinitis, unspecified trigger Type 2 diabetes mellitus with unspecified complications ([facility]/HCC) Anxiety and depression (CMS/HCC) Gastro-esophageal reflux disease without esophagitis Edema, unspecified Edema Diabetic polyneuropathy associated with type 2 diabetes mellitus ([facility]/HCC) Chronic obstructive pulmonary disease, unspecified (CMS/HCC) [...] complication, with long-term current use of insulin (CMS/[facility]) Anxiety and depression (CMS/HCC) Bilateral lower extremity edema Pulmonary emphysema, unspecified emphysema type (CMS/HCC)- Primary Primary hypertension (CMS/HCC) Unspecified essential hypertension Class 3 severe obesity with serious comorbidity and body mass index (BMI) of 50.0 to 59.9 in adult, unspecified obesity type ([facility]/HCC) Obstructive sleep apnea Obstructive sleep apnea (adult) (pediatric) Pulmonary hypertension (CMS/HCC) Other chronic pulmonary heart diseases Tobacco user Tobacco use disorder Cardiomegaly Primary hypertension (CMS/HCC)- Primary Unspecified essential hypertension Gastroesophageal reflux disease, unspecified whether esophagitis present Type 2 diabetes mellitus with complication, with long-term current use of insulin (CMS/[facility]) Mixed hyperlipidemia (CMS/[facility]) Mixed hyperlipidemia Tobacco user Tobacco use disorder Encounter for screening mammogram for malignant neoplasm of breast Chronic obstructive pulmonary disease, unspecified ([facility]) Other specified chronic obstructive pulmonary disease ([facility]) Anxiety and depression (CMS/[facility]) Edema, unspecified Edema Hyperlipidemia, unspecified (CMS/[facility]) Diabetic polyneuropathy associated with type 2 diabetes mellitus ([facility]) Gout, unspecified cause, unspecified chronicity, unspecified site Non-seasonal allergic rhinitis, unspecified trigger Bilateral lower extremity edema COPD exacerbation (CMS/[facility]) Obstructive chronic bronchitis with exacerbation Pulmonary emphysema, unspecified emphysema type (CMS/[facility]) Venous insufficiency Unspecified venous (peripheral) insufficiency Candidiasis of breast COPD exacerbation (CMS/[facility])- Primary Obstructive chronic bronchitis with exacerbation Pulmonary hypertension (CMS/[facility]) Other chronic pulmonary heart diseases Class 3 severe obesity with serious comorbidity and body mass index (BMI) of 50.0 to 59.9 in adult, unspecified obesity type ([facility]) Encounter for subsequent annual wellness visit (AWV) in Medicare patient- Primary Type 2 diabetes mellitus with unspecified complications (CMS/HCC) Pulmonary emphysema, unspecified emphysema type (CMS/HCC) Moderate persistent asthma without complication (CMS/[facility]) Primary hypertension ([facility]) Unspecified essential hypertension Type 2 diabetes mellitus with complication, with long-term current use of insulin ([facility]) Class 3 severe obesity with serious comorbidity and body mass index (BMI) of 50.0 to 59.9 in adult, unspecified obesity type ([facility]) Tobacco user Tobacco use disorder Other headache syndrome Malignant neoplasm of cervix uteri, unspecified (CMS/[facility]) Other specified disorders of adrenal gland (CMS/[facility]) Major depressive disorder, single episode, mild (HCC) ([facility]) Major depressive disorder, single episode, mild 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 exposed ([facility]) Chronic respiratory failure, unspecified whether with hypoxia or hypercapnia ([facility]) Disorder of adrenal gland, unspecified ([facility]) Non-pressure chronic ulcer of other part of right lower leg limited to breakdown of skin ([facility]) Non-recurrent acute suppurative otitis media of left ear without spontaneous rupture of tympanic membrane Primary hypertension ([facility])- Primary Unspecified essential hypertension Insomnia Insomnia, unspecified Type 2 diabetes mellitus with complication, with long-term current use of insulin ([facility]) Non-seasonal allergic rhinitis, unspecified trigger Type 2 diabetes mellitus with unspecified complications ([facility]) Anxiety and depression ([facility]) Gastro-esophageal reflux disease without esophagitis Edema, unspecified Edema Diabetic polyneuropathy associated with type 2 diabetes mellitus ([facility]) Chronic obstructive pulmonary disease, unspecified ([facility]) Pulmonary emphysema, unspecified emphysema type ([facility]) Bilateral lower extremity edema Tobacco user Tobacco use disorder Hyperpigmentation of skin Other dyschromia Type 2 diabetes mellitus with hyperglycemia, with long-term current use of insulin ([facility])- Primary Encounter for dietary consultation Vitamin D deficiency Primary hypertension ([facility]) Unspecified essential hypertension [place] [place]counter for long-term (current) use of insulin Hyperlipemia, mixed ([facility]) Mixed hyperlipidemia Microalbuminuria Proteinuria Class 3 severe obesity due to excess calories with serious comorbidity and body mass index (BMI) of 50.0 to 59.9 in adult ([facility]) documented in this encounter [facility]* Diagnosis Hyperlipidemia, unspecified ([facility]) Bilateral lower extremity edema documented in this encounter [facility]* Diagnosis Vitamin D deficiency, unspecified documented in this [facility]* Diagnosis Obstructive sleep apnea- Primary Obstructive sleep apnea (adult) (pediatric) Pulmonary emphysema, unspecified emphysema type ([facility]) Primary hypertension ([facility]) Unspecified essential hypertension Type 2 diabetes mellitus with complication, with long-term current use of insulin ([facility]) Anxiety and depression ([facility]) Bilateral lower extremity edema Pulmonary emphysema, unspecified emphysema type ([facility])- Primary Primary hypertension (CMS/HCC) Unspecified essential hypertension Class 3 severe obesity with serious comorbidity and body mass index (BMI) of 50.0 to 59.9 in adult, unspecified obesity type ([facility]/HCC) Obstructive sleep apnea Obstructive sleep apnea (adult) (pediatric) Pulmonary hypertension (CMS/HCC) Other chronic pulmonary heart diseases Tobacco user Tobacco use disorder Cardiomegaly Primary hypertension (CMS/HCC)- Primary Unspecified essential hypertension Gastroesophageal reflux disease, unspecified whether esophagitis present Type 2 diabetes mellitus with complication, with long-term current use of insulin (CMS/[facility]) Mixed hyperlipidemia (CMS/HCC) Mixed hyperlipidemia Tobacco user Tobacco use disorder Encounter for screening mammogram for malignant neoplasm of breast Chronic obstructive pulmonary disease, unspecified (CMS/[facility]) Other specified chronic obstructive pulmonary disease (CMS/[facility]) Anxiety and depression (CMS/[facility]) Edema, unspecified Edema Hyperlipidemia, unspecified (CMS/[facility]) Diabetic polyneuropathy associated with type 2 diabetes mellitus (CMS/[facility]) Gout, unspecified cause, unspecified chronicity, unspecified site Non-seasonal allergic rhinitis, unspecified trigger Bilateral lower extremity edema COPD exacerbation (CMS/[facility]) Obstructive chronic bronchitis with exacerbation Pulmonary emphysema, unspecified emphysema type (CMS/HCC) Venous insufficiency Unspecified venous (peripheral) insufficiency Candidiasis of breast COPD exacerbation (CMS/[facility])- Primary Obstructive chronic bronchitis with exacerbation Pulmonary hypertension (CMS/[facility]) Other chronic pulmonary heart diseases Class 3 severe obesity with serious comorbidity and body mass index (BMI) of 50.0 to 59.9 in adult, unspecified obesity type ([facility]) Encounter for subsequent annual wellness visit (AWV) in Medicare patient- Primary Type 2 diabetes mellitus with unspecified complications (CMS/[facility]) Pulmonary emphysema, unspecified emphysema type (CMS/HCC) Moderate persistent asthma without complication (CMS/HCC) Primary hypertension (CMS/[facility]) Unspecified essential hypertension Type 2 diabetes mellitus with complication, with long-term current use of insulin ([facility]) Class 3 severe obesity with serious comorbidity and body mass index (BMI) of 50.0 to 59.9 in adult, unspecified obesity type (CMS/HCC) Tobacco user Tobacco use disorder Other headache syndrome Malignant neoplasm of cervix uteri, unspecified (CMS/[facility]) Other specified disorders of adrenal gland (CMS/[facility]) Major depressive disorder, single episode, mild (HCC) (CMS/[facility]) Major depressive disorder, single episode, mild Non-pressure [...] diabetes mellitus with unspecified complications (CMS/[facility]) Anxiety and depression (CMS/[facility]) Gastro-esophageal reflux disease without esophagitis Edema, unspecified Edema Diabetic polyneuropathy associated with type 2 diabetes mellitus (CMS/[facility]) Chronic obstructive pulmonary disease, unspecified (CMS/[facility]) Pulmonary emphysema, unspecified emphysema type (CMS/HCC) Bilateral lower extremity edema Tobacco user Tobacco use disorder Hyperpigmentation of skin Other dyschromia Bilateral lower extremity edema documented in this encounter [facility]* Diagnosis Obstructive sleep apnea- Primary Obstructive sleep apnea (adult) (pediatric) Pulmonary emphysema, unspecified emphysema type (CMS/HCC) Primary hypertension (CMS/[facility]) Unspecified essential hypertension Type 2 diabetes mellitus with complication, with long-term current use of insulin (CMS/[facility]) Anxiety and depression (CMS/[facility]) Bilateral lower extremity edema Pulmonary emphysema, unspecified emphysema type (CMS/HCC)- Primary Primary hypertension (CMS/[facility]) Unspecified essential hypertension Class 3 severe obesity [...] polyneuropathy associated with type 2 diabetes mellitus (CMS/[facility]) Chronic obstructive pulmonary disease, unspecified (CMS/[facility]) Pulmonary emphysema, unspecified emphysema type (CMS/HCC) Bilateral lower extremity edema Tobacco user Tobacco use disorder Hyperpigmentation of skin Other dyschromia Primary hypertension ([facility]/HCC)- Primary Unspecified essential hypertension Diabetic polyneuropathy associated with type 2 diabetes mellitus ([facility]) Pulmonary emphysema, unspecified emphysema type ([facility]) Critical limb ischemia of right lower extremity ([facility]) PAD (peripheral artery disease) ([facility]) Unspecified peripheral vascular disease Gastroesophageal reflux disease, unspecified whether esophagitis present Bilateral lower extremity edema Venous ulcer of right leg ([facility]) Type 2 diabetes mellitus with complication, with long-term current use of insulin ([facility]) Tobacco user Tobacco use disorder Encounter for smoking cessation counseling Kidney stone Calculus of kidney Adrenal mass 1 cm to 4 cm in diameter ([facility]) Radiculopathy, lumbar region Thoracic or lumbosacral neuritis or radiculitis, unspecified Non-seasonal allergic rhinitis, unspecified trigger Type 2 diabetes mellitus with unspecified complications ([facility]) documented in this encounter [facility]* Diagnosis Obstructive sleep apnea- Primary Obstructive sleep apnea (adult) (pediatric) Pulmonary emphysema, unspecified emphysema type ([facility]) Primary hypertension ([facility]) Unspecified essential hypertension Type 2 diabetes mellitus with complication, with long-term current use of insulin ([facility]) Anxiety and depression ([facility]) Bilateral lower extremity edema Pulmonary emphysema, unspecified emphysema type ([facility])- Primary Primary hypertension ([facility]) Unspecified essential hypertension Class 3 severe obesity with serious comorbidity and body mass index (BMI) of 50.0 to 59.9 in adult, unspecified obesity type ([facility]) Obstructive sleep apnea Obstructive sleep apnea (adult) (pediatric) Pulmonary hypertension ([facility]) Other chronic pulmonary heart diseases Tobacco user Tobacco use disorder Cardiomegaly Primary hypertension ([facility])- Primary Unspecified essential hypertension Gastroesophageal reflux disease, unspecified whether esophagitis present Type 2 diabetes mellitus with complication, with long-term current use of insulin ([facility] Mixed hyperlipidemia ([facility]) Mixed hyperlipidemia Tobacco user Tobacco use disorder Encounter for screening mammogram for malignant neoplasm of breast Chronic obstructive pulmonary disease, unspecified ([facility]) Other specified chronic obstructive pulmonary disease (CMS/HCC) [...] polyneuropathy associated with type 2 diabetes mellitus ([facility]) Chronic obstructive pulmonary disease, unspecified ([facility]) Pulmonary emphysema, unspecified emphysema type ([facility]) Bilateral lower extremity edema Tobacco user Tobacco use disorder Hyperpigmentation of skin Other dyschromia Primary hypertension ([facility])- Primary Unspecified essential hypertension Diabetic polyneuropathy associated with type 2 diabetes mellitus ([facility]) Pulmonary emphysema, unspecified emphysema type ([facility]) Critical limb ischemia of right lower extremity ([facility]) PAD (peripheral artery disease) ([facility]) Unspecified peripheral vascular disease Gastroesophageal reflux disease, unspecified whether esophagitis present Bilateral lower extremity edema Venous ulcer of right leg ([facility]) Type 2 diabetes mellitus with complication, with long-term current use of insulin ([facility]) Tobacco user Tobacco use disorder Encounter for smoking cessation counseling Kidney stone Calculus of kidney Adrenal mass 1 cm to 4 cm in diameter ([facility]) Radiculopathy, lumbar region Thoracic or lumbosacral neuritis or radiculitis, unspecified Non-seasonal allergic rhinitis, unspecified trigger Type 2 diabetes mellitus with unspecified complications ([facility]) Anxiety and depression ([facility])- Primary Morbid (severe) obesity due to excess calories ([facility]) Body mass index (BMI) 50.0-59.9, adult ([facility]) Malignant neoplasm of cervix uteri, unspecified ([facility]) Diabetic polyneuropathy associated with type 2 diabetes mellitus ([facility] Chronic diastolic heart failure ([facility] Chronic diastolic heart failure Primary hypertension ([facility] Unspecified essential hypertension 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 ([facility]) Gastroesophageal reflux disease, unspecified whether esophagitis present Bilateral lower extremity edema Type 2 diabetes mellitus with complication, with long-term current use of insulin ([facility]) Tobacco user Tobacco use disorder Mixed hyperlipidemia ([facility]) Mixed hyperlipidemia Gout, unspecified cause, unspecified chronicity, unspecified site Vitamin deficiency Unspecified vitamin deficiency Gastro-esophageal reflux disease without esophagitis Edema, unspecified Edema Hyperlipidemia, unspecified ([facility]) Encounter for smoking cessation counseling Venous ulcer of right leg ([facility]) Antibiotic-induced yeast infection documented in this encounter [facility]Evaluation note* Diagnosis Obstructive sleep apnea- Primary Obstructive sleep apnea (adult) (pediatric) Pulmonary emphysema, unspecified emphysema type ([facility]) Primary hypertension ([facility]) Unspecified essential hypertension Type 2 diabetes mellitus with complication, with long-term current use of insulin ([facility]) Anxiety and depression ([facility]) Bilateral lower extremity edema Pulmonary emphysema, unspecified emphysema type ([facility])- Primary Primary hypertension ([facility]) Unspecified essential hypertension Class 3 severe obesity with serious comorbidity and body mass index (BMI) of 50.0 to 59.9 in adult, unspecified obesity type Obstructive sleep apnea Obstructive sleep apnea (adult) (pediatric) Pulmonary hypertension ([facility]) Other chronic pulmonary heart diseases Tobacco user Tobacco use disorder Cardiomegaly Primary hypertension ([facility])- Primary Unspecified essential hypertension Gastroesophageal reflux disease, unspecified whether esophagitis present Type 2 diabetes mellitus with complication, with long-term current use of insulin ([facility] Mixed hyperlipidemia ([facility]) Mixed hyperlipidemia Tobacco user Tobacco use disorder Encounter for screening mammogram for malignant neoplasm of breast Chronic obstructive pulmonary disease, unspecified Other specified chronic obstructive pulmonary disease Anxiety and depression ([facility]) Edema, unspecified Edema Hyperlipidemia, unspecified ([facility]) Diabetic polyneuropathy associated with type 2 diabetes mellitus ([facility]) Gout, unspecified cause, unspecified chronicity, unspecified site Non-seasonal allergic rhinitis, unspecified trigger Bilateral lower extremity edema COPD exacerbation ([facility]) Obstructive chronic bronchitis with exacerbation Pulmonary emphysema, unspecified emphysema type ([facility]) Venous insufficiency Unspecified venous (peripheral) insufficiency Candidiasis of breast COPD exacerbation ([facility])- Primary Obstructive chronic bronchitis with exacerbation Pulmonary hypertension ([facility] [facility]) Other chronic pulmonary heart diseases Class 3 severe obesity with serious comorbidity and body mass index (BMI) of 50.0 to 59.9 in adult, unspecified obesity type Encounter for subsequent annual wellness visit (AWV) in Medicare patient- Primary Type 2 diabetes mellitus with unspecified complications Pulmonary emphysema, unspecified emphysema type ([facility]) Moderate persistent asthma without complication ([facility] Primary hypertension ([facility]) Unspecified essential hypertension Type 2 diabetes mellitus with complication, with long-term current use of insulin ([facility]) Class 3 severe obesity with serious comorbidity and body mass index (BMI) of 50.0 to 59.9 in adult, unspecified obesity type Tobacco user Tobacco use disorder Other headache syndrome Malignant neoplasm of cervix uteri, unspecified Other specified disorders of adrenal gland Major depressive disorder, single episode, mild (HCC) ([facility]) Major depressive disorder, single episode, mild 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 exposed Chronic respiratory failure, unspecified whether with hypoxia or hypercapnia Disorder of adrenal gland, unspecified Non-pressure chronic ulcer of other part of right lower leg limited to breakdown of skin ([facility]) Non-recurrent acute suppurative otitis media of left ear without spontaneous rupture of tympanic membrane Primary hypertension ([facility])- Primary Unspecified essential hypertension Insomnia Insomnia, unspecified Type 2 diabetes mellitus with complication, with long-term current use of insulin ([facility]) Non-seasonal allergic rhinitis, unspecified trigger Type 2 diabetes mellitus with unspecified complications Anxiety and depression ([facility]) Gastro-esophageal reflux disease without esophagitis Edema, unspecified Edema Diabetic polyneuropathy associated with type 2 diabetes mellitus ([facility]) Chronic obstructive pulmonary disease, unspecified Pulmonary emphysema, unspecified emphysema type (CMS/HCC) Bilateral lower extremity edema Tobacco user Tobacco use disorder Hyperpigmentation of skin Other dyschromia Primary hypertension (CMS/HCC)- Primary Unspecified essential hypertension Diabetic polyneuropathy associated with type 2 diabetes mellitus ([facility]) Pulmonary emphysema, unspecified emphysema type (CMS/HCC) Critical limb ischemia of right lower extremity ([facility]) PAD (peripheral artery disease) ([facility]) Unspecified peripheral vascular disease Gastroesophageal reflux disease, unspecified whether esophagitis present Bilateral lower extremity edema Venous ulcer of right leg ([facility]) Type 2 diabetes mellitus with complication, with long-term current use of insulin ([facility]) Tobacco user Tobacco use disorder Encounter for smoking cessation counseling Kidney stone Calculus of kidney Adrenal mass 1 cm to 4 cm in diameter ([facility]) Radiculopathy, lumbar region Thoracic or lumbosacral neuritis or radiculitis, unspecified Non-seasonal allergic rhinitis, unspecified trigger Type 2 diabetes mellitus with unspecified complications Anxiety and depression ([facility])- Primary Morbid (severe) obesity due to excess calories (CMS/[facility]) Body mass index (BMI) 50.0-59.9, adult ([facility]) Malignant neoplasm of cervix uteri, unspecified Diabetic polyneuropathy associated with type 2 diabetes mellitus (CMS/HCC) Chronic diastolic heart failure (CMS/[facility]) Chronic diastolic heart failure Primary hypertension ([facility]) Unspecified essential hypertension 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 Gastroesophageal reflux disease, unspecified whether esophagitis present Bilateral lower extremity edema Type 2 diabetes mellitus with complication, with long-term current use of insulin ([facility]) Tobacco user Tobacco use disorder Mixed hyperlipidemia ([facility]) Mixed hyperlipidemia Gout, unspecified cause, unspecified chronicity, [...] (current) use of insulin Hyperlipemia, mixed ([facility]) Mixed hyperlipidemia Microalbuminuria Proteinuria Class 3 severe obesity due to excess calories with serious comorbidity and body mass index (BMI) of 50.0 to 59.9 in adult documented in this encounter [facility] HealthcareEvaluation note* Diagnosis Obstructive sleep apnea- Primary Obstructive sleep apnea (adult) (pediatric) Pulmonary emphysema, unspecified emphysema type ([facility]) [place] Unspecified essential hypertension Type 2 diabetes mellitus with complication, with long-term current use of insulin [place] [place] and depression [place] Bilateral lower extremity edema Pulmonary emphysema, unspecified emphysema type ([facility])- Primary Primary hypertension [place] [place] Unspecified essential hypertension Class 3 severe obesity with serious comorbidity and body mass index (BMI) of 50.0 to 59.9 in adult, unspecified obesity type Obstructive sleep apnea Obstructive sleep apnea (adult) (pediatric) Pulmonary hypertension ([facility]) Other chronic pulmonary heart diseases Tobacco user Tobacco use disorder Cardiomegaly Primary [place] [place] Primary Unspecified essential hypertension Gastroesophageal reflux disease, unspecified whether esophagitis present Type 2 diabetes mellitus with complication, with long-term current use of insulin [place] [place] Mixed hyperlipidemia ([facility]) Mixed hyperlipidemia Tobacco user Tobacco use disorder Encounter for screening mammogram for malignant neoplasm of breast Chronic obstructive pulmonary disease, unspecified Other specified chronic obstructive pulmonary disease Anxiety and depression ([facility]) Edema, unspecified Edema Hyperlipidemia, unspecified ([facility]) Diabetic polyneuropathy associated with type 2 diabetes mellitus ([facility]) Gout, unspecified cause, unspecified chronicity, unspecified site Non-seasonal allergic rhinitis, unspecified trigger Bilateral lower extremity edema COPD exacerbation ([facility]) Obstructive chronic bronchitis with exacerbation Pulmonary emphysema, unspecified emphysema type (CMS/[facility]) Venous insufficiency Unspecified venous (peripheral) insufficiency Candidiasis of breast COPD exacerbation ([facility])- Primary Obstructive chronic bronchitis with exacerbation Pulmonary hypertension (CMS/[facility]) Other chronic pulmonary heart diseases Class 3 severe obesity with serious comorbidity and body mass index (BMI) of 50.0 to 59.9 in adult, unspecified obesity type Encounter for subsequent annual wellness visit (AWV) in Medicare patient- Primary Type 2 diabetes mellitus with unspecified complications Pulmonary emphysema, unspecified emphysema type ([facility]) Moderate persistent asthma without complication ([facility]) Primary hypertension ([facility]) Unspecified essential hypertension Type 2 diabetes mellitus with complication, with long-term current use of insulin ([facility]) Class 3 severe obesity with serious comorbidity and body mass index (BMI) of 50.0 to 59.9 in adult, unspecified obesity type Tobacco user Tobacco use disorder Other headache syndrome Malignant neoplasm of cervix uteri, unspecified Other specified disorders of adrenal gland Major depressive disorder, single episode, mild ([facility]) ([facility]) Major depressive disorder, single episode, mild 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 exposed Chronic respiratory failure, unspecified whether with hypoxia or hypercapnia Disorder of adrenal gland, unspecified Non-pressure chronic ulcer of other part of right lower leg limited to breakdown of skin ([facility]) Non-recurrent acute suppurative otitis media of left ear without spontaneous rupture of tympanic membrane Primary hypertension ([facility])- Primary Unspecified essential hypertension Insomnia Insomnia, unspecified Type 2 diabetes mellitus with complication, with long-term current use of insulin ([facility]) Non-seasonal allergic rhinitis, unspecified trigger Type 2 diabetes mellitus with unspecified complications Anxiety and depression ([facility]) Gastro-esophageal reflux disease without esophagitis Edema, unspecified Edema Diabetic polyneuropathy associated with type 2 diabetes mellitus ([facility]) Chronic obstructive pulmonary disease, unspecified Pulmonary emphysema, unspecified emphysema type ([facility]) Bilateral lower extremity edema Tobacco user Tobacco use disorder Hyperpigmentation of skin Other dyschromia Primary hypertension ([facility])- Primary Unspecified essential hypertension Diabetic polyneuropathy associated with type 2 diabetes mellitus ([facility]) Pulmonary emphysema, unspecified emphysema type ([facility]) Critical limb ischemia of right lower extremity ([facility]) PAD (peripheral artery disease) ([facility]) Unspecified peripheral vascular disease Gastroesophageal reflux disease, unspecified whether esophagitis present Bilateral lower extremity edema Venous ulcer of right leg ([facility]) Type 2 diabetes mellitus with complication, with long-term current use of insulin ([facility]) Tobacco user Tobacco use disorder Encounter for smoking cessation counseling Kidney stone Calculus of kidney Adrenal mass 1 cm to 4 cm in diameter ([facility]) Radiculopathy, lumbar region Thoracic or lumbosacral neuritis or radiculitis, unspecified Non-seasonal allergic rhinitis, unspecified trigger Type 2 diabetes mellitus with unspecified complications Anxiety and depression ([facility])- Primary Morbid (severe) obesity due to excess calories ([facility]) Body mass index (BMI) 50.0-59.9, adult ([facility]) Malignant neoplasm of cervix uteri, unspecified Diabetic polyneuropathy associated with type 2 diabetes mellitus ([facility] Chronic diastolic heart failure ([facility] Chronic diastolic heart failure Primary hypertension ([facility]) Unspecified essential hypertension 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 Gastroesophageal reflux disease, unspecified whether esophagitis present Bilateral lower extremity edema Type 2 diabetes mellitus with complication, with long-term current use of insulin ([facility]) Tobacco user Tobacco use disorder Mixed hyperlipidemia ([facility]) Mixed hyperlipidemia Gout, unspecified cause, unspecified chronicity, unspecified site Vitamin deficiency Unspecified vitamin deficiency Gastro-esophageal reflux disease without esophagitis Edema, unspecified Edema Hyperlipidemia, unspecified ([facility]) Encounter for smoking cessation counseling Venous ulcer of right leg ([facility]) Antibiotic-induced yeast infection Chronic obstructive pulmonary disease, unspecified documented in this encounter [facility] HealthcareEvaluation note* Diagnosis Obstructive sleep apnea- Primary Obstructive sleep apnea (adult) (pediatric) Pulmonary emphysema, unspecified emphysema type ([facility]) Primary hypertension ([facility]) Unspecified essential hypertension Type 2 diabetes mellitus with complication, with long-term current use of insulin ([facility]) Anxiety and depression ([facility]) Bilateral lower extremity edema Pulmonary emphysema, unspecified emphysema type ([facility])- Primary Primary hypertension ([facility]) Unspecified essential hypertension Class 3 severe obesity with serious comorbidity and body mass index (BMI) of 50.0 to 59.9 in adult, unspecified obesity type Obstructive sleep apnea Obstructive sleep apnea (adult) (pediatric) Pulmonary hypertension (CMS/[facility]) Other chronic pulmonary heart diseases Tobacco user Tobacco use disorder Cardiomegaly Primary hypertension (CMS/[facility])- Primary Unspecified essential hypertension Gastroesophageal reflux disease, unspecified whether esophagitis present Type 2 diabetes mellitus with complication, with long-term current use of insulin ([facility]) Mixed hyperlipidemia (CMS/[facility]) Mixed hyperlipidemia Tobacco user Tobacco use disorder Encounter for screening mammogram for malignant neoplasm of breast Chronic obstructive pulmonary disease, unspecified Other specified chronic obstructive pulmonary disease Anxiety and depression ([facility]) Edema, unspecified Edema Hyperlipidemia, unspecified (CMS/[facility]) Diabetic polyneuropathy associated with type 2 diabetes mellitus ([facility]) Gout, unspecified cause, unspecified chronicity, unspecified site Non-seasonal allergic rhinitis, unspecified trigger Bilateral lower extremity edema COPD exacerbation ([facility]) Obstructive chronic bronchitis with exacerbation Pulmonary emphysema, unspecified emphysema type ([facility]) Venous insufficiency Unspecified venous (peripheral) insufficiency Candidiasis of breast COPD exacerbation ([facility])- Primary Obstructive chronic bronchitis with exacerbation Pulmonary hypertension (CMS/[facility]) Other chronic pulmonary heart diseases Class 3 severe obesity with serious comorbidity and body mass index (BMI) of 50.0 to 59.9 in adult, unspecified obesity type Encounter for subsequent annual wellness visit (AWV) in Medicare patient- Primary Type 2 diabetes mellitus with unspecified complications Pulmonary emphysema, unspecified emphysema type ([facility]) Moderate persistent asthma without complication ([facility]) Primary hypertension ([facility]) Unspecified essential hypertension Type 2 diabetes mellitus with complication, with long-term current use of insulin ([facility]) Class 3 severe obesity with serious comorbidity and body mass index (BMI) of 50.0 to 59.9 in adult, unspecified obesity type Tobacco user Tobacco use disorder Other headache syndrome Malignant neoplasm of cervix uteri, unspecified Other specified disorders of adrenal gland Major depressive disorder, single episode, mild (HCC) ([facility]) Major depressive disorder, single episode, mild 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 exposed Chronic respiratory failure, unspecified whether with hypoxia or hypercapnia Disorder of adrenal gland, unspecified Non-pressure chronic ulcer of other part of right lower leg limited to breakdown of skin ([facility]) Non-recurrent acute suppurative otitis media of left ear without spontaneous rupture of tympanic membrane Primary hypertension ([facility])- Primary Unspecified essential hypertension Insomnia Insomnia, unspecified Type 2 diabetes mellitus with complication, with long-term current use of insulin ([facility]) Non-seasonal allergic rhinitis, unspecified trigger Type 2 diabetes mellitus with unspecified complications Anxiety and depression ([facility]) Gastro-esophageal reflux disease without esophagitis Edema, unspecified Edema Diabetic polyneuropathy associated with type 2 diabetes mellitus ([facility]) Chronic obstructive pulmonary disease, unspecified Pulmonary emphysema, unspecified emphysema type ([facility]) Bilateral lower extremity edema Tobacco user Tobacco use disorder Hyperpigmentation of skin Other dyschromia Primary hypertension ([facility])- Primary Unspecified essential hypertension Diabetic polyneuropathy associated with type 2 diabetes mellitus ([facility]) Pulmonary emphysema, unspecified emphysema type ([facility]) Critical limb ischemia of right lower extremity ([facility]) PAD (peripheral artery disease) ([facility]) Unspecified peripheral vascular disease Gastroesophageal reflux disease, unspecified whether esophagitis present Bilateral lower extremity edema Venous ulcer of right leg ([facility]) Type 2 diabetes mellitus with complication, with long-term current use of insulin ([facility]) Tobacco user Tobacco use disorder Encounter for smoking cessation counseling Kidney stone Calculus of kidney Adrenal mass 1 cm to 4 cm in diameter ([facility]) Radiculopathy, lumbar region Thoracic or lumbosacral neuritis or radiculitis, unspecified Non-seasonal allergic rhinitis, unspecified trigger Type 2 diabetes mellitus with unspecified complications Anxiety and depression ([facility])- Primary Morbid (severe) obesity due to excess calories ([facility]) Body mass index (BMI) 50.0-59.9, adult ([facility]) Malignant neoplasm of cervix uteri, unspecified Diabetic polyneuropathy associated with type 2 diabetes mellitus ([facility] Chronic diastolic heart failure ([facility] Chronic diastolic heart failure Primary hypertension ([facility]) Unspecified essential hypertension 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 Gastroesophageal reflux disease, unspecified whether esophagitis present Bilateral lower extremity edema Type 2 diabetes mellitus with complication, with long-term current use of insulin ([facility]) Tobacco user Tobacco use disorder Mixed hyperlipidemia ([facility]) Mixed hyperlipidemia Gout, unspecified cause, unspecified chronicity, unspecified site Vitamin deficiency Unspecified vitamin deficiency Gastro-esophageal reflux disease without esophagitis Edema, unspecified Edema Hyperlipidemia, unspecified ([facility]) Encounter for smoking cessation counseling Venous ulcer of right leg ([facility]) Antibiotic-induced yeast infection Primary hypertension ([facility])- Primary Unspecified essential hypertension Diabetic polyneuropathy associated with type 2 diabetes mellitus ([facility] Chronic diastolic heart failure ([facility]) Chronic diastolic heart failure Bilateral lower extremity edema Morbid (severe) obesity due to excess calories ([facility]) Type 2 diabetes mellitus with complication, with long-term current use of insulin ([facility]) Anxiety and depression ([facility]) Cigarette nicotine dependence without complication Encounter for screening mammogram for malignant neoplasm of breast Insomnia Insomnia, unspecified Non-seasonal allergic rhinitis, unspecified trigger Type 2 diabetes mellitus with unspecified complications Vitamin D deficiency, unspecified Gastro-esophageal reflux disease without esophagitis PAD (peripheral artery disease) ([facility]) Unspecified peripheral vascular disease Gastroesophageal reflux disease, unspecified whether esophagitis present Venous ulcer of right leg ([facility]) documented in this encounter [facility] HealthcareEvaluation note* Diagnosis Obstructive sleep apnea- Primary Obstructive sleep apnea (adult) (pediatric) Pulmonary emphysema, unspecified emphysema type (HCC) Primary hypertension Unspecified essential hypertension Type 2 diabetes mellitus with complication, with long-term current use of insulin ([facility]) Anxiety and depression Bilateral lower extremity edema Pulmonary emphysema, unspecified emphysema type (HCC)- Primary Primary hypertension Unspecified essential hypertension Class 3 severe obesity with serious comorbidity and body mass index (BMI) of 50.0 to 59.9 in adult, unspecified obesity type ([facility]) Obstructive sleep apnea Obstructive sleep apnea (adult) (pediatric) Pulmonary hypertension (HCC) Other chronic pulmonary heart diseases Tobacco user Tobacco use disorder Cardiomegaly Primary hypertension- Primary Unspecified essential hypertension Gastroesophageal reflux disease, unspecified whether esophagitis present Type 2 diabetes mellitus with complication, with long-term current use of insulin ([facility]) Mixed hyperlipidemia Mixed hyperlipidemia Tobacco user Tobacco use disorder Encounter for screening mammogram for malignant neoplasm of breast Chronic obstructive pulmonary disease, unspecified (HCC) Other specified chronic obstructive pulmonary disease (HCC) Anxiety and depression Edema, unspecified Edema Hyperlipidemia, unspecified Diabetic polyneuropathy associated with type 2 diabetes mellitus ([facility]) Gout, unspecified cause, unspecified chronicity, unspecified site [...] to 59.9 in adult, unspecified obesity type [place] Encounter for subsequent annual wellness visit (AWV) in Medicare patient- Primary Type 2 diabetes mellitus with unspecified complications (HCC) Pulmonary emphysema, unspecified emphysema type ([facility]) Moderate persistent asthma without complication (HCC) Primary hypertension Unspecified essential hypertension Type 2 diabetes mellitus with complication, with long-term current use of insulin ([facility]) Class 3 severe obesity with serious comorbidity and body mass index (BMI) of 50.0 to 59.9 in adult, unspecified obesity type ([facility] Tobacco user Tobacco use disorder Other headache syndrome Malignant neoplasm of cervix uteri, unspecified (HCC) Other specified disorders of adrenal gland (HCC) Major depressive disorder, single episode, mild Major depressive disorder, single episode, mild 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 exposed ([facility]) Chronic respiratory failure, unspecified whether with hypoxia [...] polyneuropathy associated with type 2 diabetes mellitus ([facility]) Pulmonary emphysema, unspecified emphysema type (HCC) Critical limb ischemia of right lower extremity ([facility]) PAD (peripheral artery disease) Unspecified peripheral vascular disease Gastroesophageal reflux disease, unspecified whether esophagitis present Bilateral lower extremity edema Venous ulcer of right leg (HCC) Type 2 diabetes mellitus with complication, with long-term current use of insulin ([facility]) Tobacco user Tobacco use disorder Encounter for smoking cessation counseling Kidney stone Calculus of kidney Adrenal mass 1 cm to 4 cm in diameter ([facility]) Radiculopathy, lumbar region Thoracic or lumbosacral neuritis or radiculitis, unspecified Non-seasonal allergic rhinitis, unspecified trigger Type 2 diabetes mellitus with unspecified complications ([facility]) Anxiety and depression- Primary Morbid (severe) obesity due to excess calories [place] Body mass index (BMI) 50.0-59.9, adult [place] Malignant neoplasm of cervix uteri, unspecified ([facility]) Diabetic polyneuropathy associated with type 2 diabetes mellitus ([facility]) Chronic diastolic heart failure ([facility]) Chronic diastolic heart failure Primary hypertension Unspecified essential hypertension 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 ([facility]) Gastroesophageal reflux disease, unspecified whether esophagitis present Bilateral lower extremity edema Type 2 diabetes mellitus with complication, with long-term current use of insulin ([facility]) Tobacco user Tobacco use disorder Mixed hyperlipidemia Mixed hyperlipidemia Gout, unspecified cause, unspecified chronicity, unspecified site Vitamin deficiency Unspecified vitamin deficiency Gastro-esophageal reflux disease without esophagitis Edema, unspecified Edema Hyperlipidemia, unspecified Encounter for smoking cessation counseling Venous ulcer of right leg ([facility]) Antibiotic-induced yeast infection Primary hypertension- Primary Unspecified essential hypertension Diabetic polyneuropathy associated with type 2 diabetes mellitus (HCC) Chronic diastolic heart failure (HCC) Chronic diastolic heart failure Bilateral lower extremity edema Morbid (severe) obesity due to excess calories ([facility] Type 2 diabetes mellitus with complication, with long-term current use of insulin ([facility]) Anxiety and depression Cigarette nicotine dependence without complication Encounter for screening mammogram for malignant neoplasm of breast Insomnia Insomnia, unspecified Non-seasonal allergic rhinitis, unspecified trigger Type 2 diabetes mellitus with unspecified complications ([facility]) Vitamin D deficiency, unspecified Gastro-esophageal reflux disease without esophagitis PAD (peripheral artery disease) Unspecified peripheral vascular disease Gastroesophageal reflux disease, unspecified whether esophagitis present Venous ulcer of right leg (HCC) Cellulitis of left lower extremity- Primary COPD exacerbation ([facility]) Obstructive chronic bronchitis with exacerbation Primary hypertension Unspecified essential hypertension Pulmonary hypertension (HCC) Other chronic pulmonary heart diseases Morbid (severe) obesity due to excess calories ([facility]) Type 2 diabetes mellitus with complication, with long-term current use of insulin ([facility]) Anxiety and depression Fever, unspecified fever cause Hyperlipidemia, unspecified Tobacco user Tobacco use disorder Encounter for smoking cessation counseling documented in this encounter [facility] HealthcareEvaluation note* Diagnosis Obstructive sleep apnea- Primary Obstructive sleep apnea (adult) (pediatric) Pulmonary emphysema, unspecified emphysema type ([facility]) Primary hypertension ([facility]) Unspecified essential hypertension Type 2 diabetes mellitus with complication, with long-term current use of insulin ([facility]) Anxiety and depression ([facility]) Bilateral lower extremity edema Pulmonary emphysema, unspecified emphysema type ([facility])- Primary Primary hypertension ([facility]) Unspecified essential hypertension Class 3 severe obesity with serious comorbidity and body mass index (BMI) of 50.0 to 59.9 in adult, unspecified obesity type Obstructive sleep apnea Obstructive sleep apnea (adult) (pediatric) Pulmonary hypertension ([facility]) Other chronic pulmonary heart diseases Tobacco user Tobacco use disorder Cardiomegaly Primary hypertension ([facility])- Primary Unspecified essential hypertension Gastroesophageal reflux disease, unspecified whether esophagitis present Type 2 diabetes mellitus with complication, with long-term current use of insulin ([facility]) Mixed hyperlipidemia ([facility]) Mixed hyperlipidemia Tobacco user Tobacco use disorder Encounter for screening mammogram for malignant neoplasm of breast Chronic obstructive pulmonary disease, unspecified Other specified chronic obstructive pulmonary disease Anxiety and depression ([facility]) Edema, unspecified Edema Hyperlipidemia, unspecified ([facility]) Diabetic polyneuropathy associated with type 2 diabetes mellitus ([facility]) Gout, unspecified cause, unspecified chronicity, unspecified site Non-seasonal allergic rhinitis, unspecified trigger Bilateral lower extremity edema COPD exacerbation ([facility]) Obstructive chronic bronchitis with exacerbation Pulmonary emphysema, unspecified emphysema type ([facility]) Venous insufficiency Unspecified venous (peripheral) insufficiency Candidiasis of breast COPD exacerbation ([facility])- Primary Obstructive chronic bronchitis with exacerbation Pulmonary hypertension ([facility]) Other chronic pulmonary heart diseases Class 3 severe obesity with serious comorbidity and body mass index (BMI) of 50.0 to 59.9 in adult, unspecified obesity type Encounter for subsequent annual wellness visit (AWV) in Medicare patient- Primary Type 2 diabetes mellitus with unspecified complications Pulmonary emphysema, unspecified emphysema type ([facility]) Moderate persistent asthma without complication ([facility]) Primary hypertension ([facility]) Unspecified essential hypertension Type 2 diabetes mellitus with complication, with long-term current use of insulin ([facility]) Class 3 severe obesity with serious comorbidity and body mass index (BMI) of 50.0 to 59.9 in adult, unspecified obesity type Tobacco user Tobacco use disorder Other headache syndrome Malignant neoplasm of cervix uteri, unspecified Other specified disorders of adrenal gland Major depressive disorder, single episode, mild (HCC) ([facility]) Major depressive disorder, single episode, mild 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 exposed Chronic respiratory failure, unspecified whether with hypoxia or hypercapnia Disorder of adrenal gland, unspecified Non-pressure chronic ulcer of other part of right lower leg limited to breakdown of skin ([facility]) Non-recurrent acute suppurative otitis media of left ear without spontaneous rupture of tympanic membrane Primary hypertension ([facility])- Primary Unspecified essential hypertension Insomnia Insomnia, unspecified Type 2 diabetes mellitus with complication, with long-term current use of insulin ([facility]) Non-seasonal allergic rhinitis, unspecified trigger Type 2 diabetes mellitus with unspecified complications Anxiety and depression ([facility]) Gastro-esophageal reflux disease without esophagitis Edema, unspecified Edema Diabetic polyneuropathy associated with type 2 diabetes mellitus ([facility]) Chronic obstructive pulmonary disease, unspecified Pulmonary emphysema, unspecified emphysema type ([facility]) Bilateral lower extremity edema Tobacco user Tobacco use disorder Hyperpigmentation of skin Other dyschromia Primary hypertension ([facility])- Primary Unspecified essential hypertension Diabetic polyneuropathy associated with type 2 diabetes mellitus ([facility]) Pulmonary emphysema, unspecified emphysema type ([facility]) Critical limb ischemia of right lower extremity ([facility]) PAD (peripheral artery disease) ([facility]) Unspecified peripheral vascular disease Gastroesophageal reflux disease, unspecified whether esophagitis present Bilateral lower extremity edema Venous ulcer of right leg ([facility]) Type 2 diabetes mellitus with complication, with long-term current use of insulin ([facility]) Tobacco user Tobacco use disorder Encounter for smoking cessation counseling Kidney stone Calculus of kidney Adrenal mass 1 cm to 4 cm in diameter ([facility]) Radiculopathy, lumbar region Thoracic or lumbosacral neuritis or radiculitis, unspecified Non-seasonal allergic rhinitis, unspecified trigger Type 2 diabetes mellitus with unspecified complications Anxiety and depression ([facility])- Primary Morbid (severe) obesity due to excess calories ([facility]) Body mass index (BMI) 50.0-59.9, adult ([facility]) Malignant neoplasm of cervix uteri, unspecified Diabetic polyneuropathy associated with type 2 diabetes mellitus ([facility] Chronic diastolic heart failure ([facility]) Chronic diastolic heart failure Primary hypertension ([facility]) Unspecified essential hypertension 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 Gastroesophageal reflux disease, unspecified whether esophagitis present Bilateral lower extremity edema Type 2 diabetes mellitus with complication, with long-term current use of insulin ([facility]) Tobacco user Tobacco use disorder Mixed hyperlipidemia ([facility]) Mixed hyperlipidemia Gout, unspecified cause, unspecified chronicity, [...] polyneuropathy associated with type 2 diabetes mellitus ([facility] Chronic diastolic heart failure ([facility]) Chronic diastolic heart failure Bilateral lower extremity edema Morbid (severe) obesity due to excess calories ([facility]) Type 2 diabetes mellitus with complication, with long-term current use of insulin ([facility]) [place] Cigarette nicotine dependence without complication Encounter for screening mammogram for malignant neoplasm of breast Insomnia Insomnia, unspecified Non-seasonal allergic rhinitis, unspecified trigger Type 2 diabetes mellitus with unspecified complications Vitamin D deficiency, unspecified Gastro-esophageal reflux disease without esophagitis PAD (peripheral artery disease) ([facility]) Unspecified peripheral vascular disease Gastroesophageal reflux disease, unspecified whether esophagitis present Venous ulcer of right leg ([facility]) Cellulitis of left lower extremity- Primary COPD exacerbation ([facility]) Obstructive chronic bronchitis with exacerbation Primary hypertension ([facility]) Unspecified essential hypertension Pulmonary hypertension ([facility]) Other chronic pulmonary heart diseases Morbid (severe) obesity due to excess calories ([facility]) Type 2 diabetes mellitus with complication, with long-term current use of insulin ([facility]) Anxiety and depression ([facility]) Fever, unspecified fever cause documented in this [...] to 59.9 in adult, unspecified obesity type ([facility]) Obstructive sleep apnea Obstructive sleep apnea (adult) [...] to 59.9 in adult, unspecified obesity type ([facility]) Encounter for subsequent annual wellness visit (AWV) [...] to 59.9 in adult, unspecified obesity type ([facility]) Tobacco user Tobacco use disorder Other headache syndrome Malignant neoplasm of cervix uteri, unspecified (HCC) Other specified disorders of adrenal gland (HCC) Major depressive disorder, single episode, mild Major depressive disorder, single episode, mild 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 exposed (HCC) Chronic respiratory failure, unspecified whether with hypoxia or hypercapnia ([facility]) Disorder of adrenal gland, unspecified ([facility]) Non-pressure chronic ulcer of other part of right lower leg limited to breakdown of skin ([facility]) Non-recurrent acute suppurative otitis media of left ear without spontaneous rupture of tympanic membrane Primary hypertension- Primary Unspecified essential hypertension Insomnia Insomnia, unspecified Type 2 diabetes mellitus with complication, with long-term current use of insulin ([facility]) Non-seasonal allergic rhinitis, unspecified trigger Type 2 diabetes mellitus with unspecified complications ([facility]) Anxiety and depression Gastro-esophageal reflux disease without esophagitis Edema, unspecified Edema Diabetic polyneuropathy associated with type 2 diabetes mellitus ([facility]) Chronic obstructive pulmonary disease, unspecified ([facility]) Pulmonary emphysema, unspecified emphysema type ([facility]) Bilateral lower extremity edema Tobacco user Tobacco use disorder Hyperpigmentation of skin Other dyschromia Primary hypertension- Primary Unspecified essential hypertension Diabetic polyneuropathy associated with type 2 diabetes mellitus ([facility]) Pulmonary emphysema, unspecified emphysema type ([facility]) Critical limb ischemia of right lower extremity ([facility]) PAD (peripheral artery disease) Unspecified peripheral vascular disease Gastroesophageal reflux disease, unspecified whether esophagitis present Bilateral lower extremity edema Venous ulcer of right leg ([facility]) Type 2 diabetes mellitus with complication, with long-term current use of insulin ([facility]) Tobacco user Tobacco use disorder Encounter for smoking cessation counseling Kidney stone Calculus of kidney Adrenal mass 1 cm to 4 cm in diameter ([facility]) Radiculopathy, lumbar region Thoracic or lumbosacral neuritis or radiculitis, unspecified Non-seasonal allergic rhinitis, unspecified trigger Type 2 diabetes mellitus with unspecified complications ([facility]) Anxiety and depression- Primary Morbid (severe) obesity due to excess calories [place] Body mass index (BMI) 50.0-59.9, adult [place] Malignant neoplasm of cervix uteri, unspecified ([facility]) Diabetic polyneuropathy associated with type 2 diabetes mellitus ([facility]) Chronic diastolic heart failure ([facility]) Chronic diastolic heart failure Primary hypertension Unspecified essential hypertension 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 ([facility]) Gastroesophageal reflux disease, unspecified whether esophagitis present Bilateral lower extremity edema Type 2 diabetes mellitus with complication, with long-term current use of insulin ([facility]) Tobacco user Tobacco use disorder Mixed hyperlipidemia [...] (severe) obesity due to excess calories ([facility]) Type 2 diabetes mellitus with complication, with [...] of left lower extremity- Primary COPD exacerbation ([facility]) Obstructive chronic bronchitis with exacerbation Primary hypertension Unspecified essential hypertension Pulmonary hypertension (HCC) Other chronic pulmonary heart diseases Morbid (severe) obesity due to excess calories ([facility]) Type 2 diabetes mellitus with complication, with long-term current use of insulin ([facility]) Anxiety and depression Fever, unspecified fever cause [...] (severe) obesity due to excess calories ([facility]) Type 2 diabetes mellitus with hyperglycemia, with long-term current use of insulin ([facility]) documented in this encounter [facility] HealthcareEvaluation note* Diagnosis Obstructive sleep [...] to 59.9 in adult, unspecified obesity type ([facility] Obstructive sleep apnea Obstructive sleep apnea (adult) [...] to 59.9 in adult, unspecified obesity type ([facility]) Encounter for subsequent annual wellness visit (AWV) [...] to 59.9 in adult, unspecified obesity type ([facility]) Tobacco user Tobacco use disorder Other headache syndrome Malignant neoplasm of cervix uteri, unspecified (HCC) Other specified disorders of adrenal gland (HCC) Major depressive disorder, single episode, mild Major depressive disorder, single episode, mild 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 exposed (HCC) Chronic respiratory failure, unspecified whether with hypoxia or hypercapnia ([facility]) Disorder of adrenal gland, unspecified ([facility]) Non-pressure chronic ulcer of other part of right lower leg limited to breakdown of skin ([facility]) Non-recurrent acute suppurative otitis media of left ear without spontaneous rupture of tympanic membrane Primary hypertension- Primary Unspecified essential hypertension Insomnia Insomnia, unspecified Type 2 diabetes mellitus with complication, with long-term current use of insulin ([facility]) Non-seasonal allergic rhinitis, unspecified trigger Type 2 diabetes mellitus with unspecified complications ([facility]) Anxiety and depression Gastro-esophageal reflux disease without esophagitis Edema, unspecified Edema Diabetic polyneuropathy associated with type 2 diabetes mellitus ([facility]) Chronic obstructive pulmonary disease, unspecified ([facility]) Pulmonary emphysema, unspecified emphysema type ([facility]) Bilateral lower extremity edema Tobacco user Tobacco use disorder Hyperpigmentation of skin Other dyschromia Primary hypertension- Primary Unspecified essential hypertension Diabetic polyneuropathy associated with type 2 diabetes mellitus ([facility]) Pulmonary emphysema, unspecified emphysema type ([facility]) Critical limb ischemia of right lower extremity [place] PAD (peripheral artery disease) Unspecified peripheral vascular disease Gastroesophageal reflux disease, unspecified whether esophagitis present Bilateral lower extremity edema Venous ulcer of right leg ([facility]) Type 2 diabetes mellitus with complication, with long-term current use of insulin ([facility]) Tobacco user Tobacco use disorder Encounter for smoking cessation counseling Kidney stone Calculus of kidney Adrenal mass 1 cm to 4 cm in diameter ([facility]) Radiculopathy, lumbar region Thoracic or lumbosacral neuritis or radiculitis, unspecified Non-seasonal allergic rhinitis, unspecified trigger Type 2 diabetes mellitus with unspecified complications ([facility]) Anxiety and depression- Primary Morbid (severe) obesity due to excess calories ([facility]) Body mass index (BMI) 50.0-59.9, adult ([facility]) Malignant neoplasm of cervix uteri, unspecified ([facility]) Diabetic polyneuropathy associated with type 2 diabetes mellitus ([facility]) Chronic diastolic heart failure ([facility]) Chronic diastolic heart failure Primary hypertension Unspecified essential hypertension 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 ([facility]) Gastroesophageal reflux disease, unspecified whether esophagitis present Bilateral lower extremity edema Type 2 diabetes mellitus with complication, with long-term current use of insulin ([facility]) Tobacco user Tobacco use disorder Mixed hyperlipidemia [...] (severe) obesity due to excess calories ([facility]) Type 2 diabetes mellitus with complication, with long-term current use of insulin ([facility]) Anxiety and depression Cigarette nicotine dependence without complication Encounter for screening mammogram for malignant neoplasm of breast Insomnia Insomnia, unspecified Non-seasonal allergic rhinitis, unspecified trigger Type 2 diabetes mellitus with unspecified complications ([facility]) Vitamin D deficiency, unspecified Gastro-esophageal reflux disease without esophagitis PAD (peripheral artery disease) Unspecified peripheral vascular disease Gastroesophageal reflux disease, unspecified whether esophagitis present Venous ulcer of right leg ([facility]) Cellulitis of left lower extremity- Primary COPD exacerbation ([facility]) Obstructive chronic bronchitis with exacerbation Primary hypertension Unspecified essential hypertension Pulmonary hypertension (HCC) Other chronic pulmonary heart diseases Morbid (severe) obesity due to excess calories ([facility]) Type 2 diabetes mellitus with complication, with long-term current use of insulin ([facility]) Anxiety and depression Fever, unspecified fever cause Encounter for subsequent annual wellness visit (AWV) in Medicare patient- Primary Mixed hyperlipidemia Mixed hyperlipidemia Type 2 diabetes mellitus with complication, with long-term current use of insulin ([facility]) Bilateral lower extremity edema Gastro-esophageal reflux disease without esophagitis Chronic diastolic heart failure (HCC) Chronic diastolic heart failure Primary hypertension Unspecified essential hypertension Pulmonary hypertension (HCC) Other chronic pulmonary heart diseases Diabetic polyneuropathy associated with type 2 diabetes mellitus ([facility]) Pulmonary emphysema, unspecified emphysema type ([facility]) Moderate persistent asthma without complication (HCC) Insomnia Insomnia, unspecified Non-seasonal allergic rhinitis, unspecified trigger Type 2 diabetes mellitus with unspecified complications ([facility]) Anxiety and depression Antibiotic-induced yeast infection Chronic obstructive pulmonary disease, unspecified (HCC) Hyperlipidemia, unspecified Vaginal yeast infection Candidiasis of vulva and vagina Morbid (severe) obesity due to excess calories ([facility]) Encounter for dietary consultation- Primary Type 2 diabetes mellitus with hyperglycemia, with long-term current use of insulin ([facility]) Vitamin D deficiency Primary hypertension Unspecified essential hypertension Insulin long-term use ([facility]) Encounter for long-term (current) use of insulin Hyperlipemia, mixed Mixed hyperlipidemia Microalbuminuria Proteinuria Class 3 severe obesity due to excess calories with serious comorbidity and body mass index (BMI) of 50.0 to 59.9 in adult ([facility]) documented in this encounter [facility] HealthcareEvaluation note* Diagnosis Obstructive sleep [...] to 59.9 in adult, unspecified obesity type ([facility]) Obstructive sleep apnea Obstructive sleep apnea (adult) [...] to 59.9 in adult, unspecified obesity type ([facility]) Encounter for subsequent annual wellness visit (AWV) [...] to 59.9 in adult, unspecified obesity type ([facility]) Tobacco user Tobacco use disorder Other headache syndrome Malignant neoplasm of cervix uteri, unspecified ([facility]) Other specified disorders of adrenal gland ([facility]) Major depressive disorder, single episode, mild Major depressive disorder, single episode, mild 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 exposed ([facility]) Chronic respiratory failure, unspecified whether with hypoxia or hypercapnia ([facility]) Disorder of adrenal gland, unspecified ([facility]) Non-pressure chronic ulcer of other part of right lower leg limited to breakdown of skin ([facility]) Non-recurrent acute suppurative otitis media of left ear without spontaneous rupture of tympanic membrane Primary hypertension- Primary Unspecified essential hypertension Insomnia Insomnia, unspecified Type 2 diabetes mellitus with complication, with long-term current use of insulin ([facility]) Non-seasonal allergic rhinitis, unspecified trigger Type 2 diabetes mellitus with unspecified complications ([facility]) Anxiety and depression Gastro-esophageal reflux disease without esophagitis Edema, unspecified Edema Diabetic polyneuropathy associated with type 2 diabetes mellitus ([facility]) Chronic obstructive pulmonary disease, unspecified ([facility]) Pulmonary emphysema, unspecified emphysema type ([facility]) Bilateral lower extremity edema Tobacco user Tobacco use disorder Hyperpigmentation of skin Other dyschromia Primary hypertension- Primary Unspecified essential hypertension Diabetic polyneuropathy associated with type 2 diabetes mellitus ([facility]) Pulmonary emphysema, unspecified emphysema type ([facility]) Critical limb ischemia of right lower extremity ([facility]) PAD (peripheral artery disease) Unspecified peripheral vascular disease Gastroesophageal reflux disease, unspecified whether esophagitis present Bilateral lower extremity edema Venous ulcer of right leg ([facility]) Type 2 diabetes mellitus with complication, with long-term current use of insulin ([facility]) Tobacco user Tobacco use disorder Encounter for smoking cessation counseling Kidney stone Calculus of kidney Adrenal mass 1 cm to 4 cm in diameter ([facility]) Radiculopathy, lumbar region Thoracic or lumbosacral neuritis or radiculitis, unspecified Non-seasonal allergic rhinitis, unspecified trigger Type 2 diabetes mellitus with unspecified complications ([facility]) Anxiety and depression- Primary Morbid (severe) obesity due to excess calories ([facility] Body mass index (BMI) 50.0-59.9, adult ([facility]) Malignant neoplasm of cervix uteri, unspecified ([facility]) Diabetic polyneuropathy associated with type 2 diabetes mellitus ([facility]) Chronic diastolic heart failure (HCC) Chronic diastolic heart failure Primary hypertension Unspecified essential hypertension 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 (HCC) Gastroesophageal reflux disease, unspecified whether esophagitis present Bilateral lower extremity edema Type 2 diabetes mellitus with complication, with long-term current use of insulin ([facility]) Tobacco user Tobacco use disorder Mixed hyperlipidemia [...] (severe) obesity due to excess calories ([facility]) Type 2 diabetes mellitus with complication, with long-term current use of insulin ([facility]) Anxiety and depression Cigarette nicotine dependence without complication Encounter for screening mammogram for malignant neoplasm of breast Insomnia Insomnia, unspecified Non-seasonal allergic rhinitis, unspecified trigger Type 2 diabetes mellitus with unspecified complications ([facility]) Vitamin D deficiency, unspecified Gastro-esophageal reflux disease without esophagitis PAD (peripheral artery disease) Unspecified peripheral vascular disease Gastroesophageal reflux disease, unspecified whether esophagitis present Venous ulcer of right leg (HCC) Cellulitis of left lower extremity- Primary COPD exacerbation ([facility]) Obstructive chronic bronchitis with exacerbation Primary hypertension Unspecified essential hypertension Pulmonary hypertension (HCC) Other chronic pulmonary heart diseases Morbid (severe) obesity due to excess calories ([facility]) Type 2 diabetes mellitus with complication, with long-term current use of insulin ([facility]) Anxiety and depression Fever, unspecified fever cause [...] polyneuropathy associated with type 2 diabetes mellitus ([facility]) Pulmonary emphysema, unspecified emphysema type ([facility]) Moderate persistent asthma without complication (HCC) Insomnia Insomnia, unspecified Non-seasonal allergic rhinitis, unspecified trigger Type 2 diabetes mellitus with unspecified complications (HCC) Anxiety and depression Antibiotic-induced yeast infection Chronic obstructive pulmonary disease, unspecified (HCC) Hyperlipidemia, unspecified Vaginal yeast infection Candidiasis of vulva and vagina Morbid (severe) obesity due to excess calories ([facility]) Tobacco user Tobacco use disorder Encounter [...] History sepsis 2010 Hospitalization History SEE ABOVE MTailor Other Hospital course Narrative No data available for this section [facility] progress note No data available for this section [facility] reason for referral (narrative) , Referral to Dr. 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 Advance Directives and Living Will Power of Inside Sales Director Summary Purpose Family History No Family History Records FoundNo Family History Records FoundNo Family History Records FoundNo Family History Records Found No data available for this section No Family History Records FoundNo Family History Records FoundNo Family History Records Found Additional Source Comments INFORMATION SOURCE (unrecogn ized section and content) DATE CREATED AUTHOR 10/30/2019 [facility] DATE CREATED AUTHOR AUTHOR'S ORGANIZ ATION 09/15/2020 [facility] DATE CREATED AUTHOR AUTHOR'S ORGANIZ ATION 12/19/2022 [facility] DATE CREATED AUTHOR AUTHOR'S ORGANIZ ATION 06/03/2024 [facility] DATE CREATED AUTHOR AUTHOR'S ORGANIZ ATION 01/30/2025 [facility] EPIC DATE CREATED AUTHOR AUTHOR'S ORGANIZ ATION 02/06/2025 [facility] DATE CREATED AUTHOR AUTHOR'S ORGANIZ ATION 03/23/2025 [facility] Care Team (unrecognized sect ion and content) [employer] Utility Aircrewman Relationship Specialty Start Date End Date Ty Amin MD PCP - General Family Medicine 01/05/23 [employer]cre[employer] Relationship Specialty Start Date End Date Ty Amin MD PCP - General Family Medicine 01/05/23 [employer] Relationship Specialty Start Date End Date Ty Amin MD [address] [place] [address] PCP - General Family Medicine 09/20/23 Mckayla Blas NP [address] [place] [address] PCP - [facility] 09/07/23 09/05/90 Mckayla Blas NP [address] [place] [address] Nurse Practitioner Family Medicine 09/20/23 [employer] Relationship Specialty Start Date End Date Ty Amin MD [address] [place] [address] PCP - General Family Medicine 09/20/23 Mckayla Blas NP [address] [place] [address] PCP [facility] 09/07/23 09/05/90 Mckayla Blas NP [address] [place] [address] Nurse Practitioner Family Medicine 09/20/23 [employer] Relationship Specialty Start Date End Date Ty Amin MD [address] [place] [address] PCP - General Family Medicine 09/20/23 Mckayla Blas NP [address] [place] [address] PCP - [facility] 09/07/23 09/05/90 Mckayla Blas NP [address] [place] [address] Nurse Practitioner Family Medicine 09/20/23 [employer] Relationship Specialty Start Date End Date Ty Amin MD [address] [place] [address] PCP - General Family Medicine 09/20/23 Mckayla Blas NP [address] [place] [address] PCP [facility] 09/07/23 09/05/90 Mckayla Blas NP [address] [place] [address] Nurse Practitioner Family Medicine 09/20/23 [employer] Relationship Specialty Start Date End Date Ty Amin MD [address] [place] [address] PCP - General Family Medicine 09/20/23 Mckayla Blas NP [address] [place] [address] PCP - [facility] 09/07/23 09/05/90 Mckayla Blas NP [address] [place] [address] Nurse Practitioner Family Medicine 09/20/23 [employer] Utility Aircre[employer] Relationship Specialty Start Date End Date Ty Amin MD [address] [place] [address] PCP - General Family Medicine 09/20/23 Mckayla Blas NP [address] [place] [address] PCP - [facility] 09/07/23 09/05/90 Mckayla Blas NP [address] [place] [address] Nurse Practitioner Family Medicine 09/20/23 [employer]opter Utility Aircrew[employer] Relationship Specialty Start Date End Date Ty Amin MD [address] [place] [address] PCP - General Family Medicine 09/20/23 Mckayla Blas NP [address] [place] [address] PCP [facility] 09/07/23 09/05/90 Mckayla Blas NP [address] [place] [address] Nurse Practitioner Family Medicine 09/20/23 [employer] Utility Aircrew[employer] Relationship Specialty Start Date End Date Ty Amin MD [address] [place] [address] PCP - General Family Medicine 09/20/23 Mckayla Blas NP [address] [place] [address] PCP - [facility] 09/07/23 09/05/90 Mckayla Blas NP [address] [place] [address] Nurse Practitioner Family Medicine 09/20/23 Helicopter Utility Aircrew[employer] Relationship Specialty Start Date End Date Ty Amin MD [address] [place] [address] PCP - General Family Medicine 09/20/23 Mckayla Blas NP [address] [place] [address] PCP [facility] 09/07/23 09/05/90 Mckayla Blas NP [address] [place] [address] Nurse Practitioner Family Medicine 09/20/23 Hel[employer] Utility Aircre[employer] Relationship Specialty Start Date End Date Ty Amin MD [address] [place] [address] PCP - General Family Medicine 09/20/23 Mckayla Blas NP [address] [place] [address] PCP - [facility] 09/07/23 09/05/90 Mckayla Blas NP [address] [place] [address] Nurse Practitioner Family Medicine 09/20/23 Helicopter Utility Aircrewman Relationship Specialty Start Date End Date Ty Amin MD [address] [place] [address] PCP - General Family Medicine 09/20/23 Mckayla Blas NP [address] [place] [address] PCP - [facility] 09/07/23 09/05/90 Mckayla Blas NP [address] [place] [address] Nurse Practitioner Family Medicine 09/20/23 Helicopter Utility Aircrewman Relationship Specialty Start Date End Date Ty Amin MD [address] [place] [address] PCP - General Family Medicine 09/20/23 Mckayla Blas NP [address] [place] [address] PCP [facility] 09/07/23 09/05/90 Mckayla Blas NP [address] [place] [address] Nurse Practitioner Family Medicine 09/20/23 Helicopter Utility Aircrewman Relationship Specialty Start Date End Date Ty Amin MD [address] [place] [address] PCP - General Family Medicine 09/20/23 Mckayla Blas NP [address] [place] [address] PCP - [facility] 09/07/23 09/05/90 Mckayla Blas NP [address] [place] [address] Nurse Practitioner Family Medicine 09/20/23 Helicopter Utility Aircrewman Relationship Specialty Start Date End Date Ty Amin MD [address] [place] [address] PCP - General Family Medicine 09/20/23 Mckayla Blas NP [address] [place] [address] PCP [facility] 09/07/23 09/05/90 Mckayla Blas NP [address] [place] [address] Nurse Practitioner Family Medicine 09/20/23 [employer] Utility Air[employer] Relationship Specialty Start Date End Date Ty Amin MD [address] [place] [address] PCP - General Family Medicine 09/20/23 Mckayla Blas NP [address] [place] [address] PCP - [facility] 09/07/23 09/05/90 Mckayla Blas NP [address] [place] [address] Nurse Practitioner Family Medicine 09/20/23 [employer] Utility Air[employer] Relationship Specialty Start Date End Date Ty Amin MD [address] [place] [address] PCP - General Family Medicine 09/20/23 Mckayla Blas NP [address] [place] [address] PCP - [facility] 09/07/23 09/05/90 Mckayla Blas NP [address] [place] [address] Nurse Practitioner Family Medicine 09/20/23 Hel[employer]opter Utility Aircrewman Relationship Specialty Start Date End Date Ty Amin MD [address] [place] [address] PCP - General Family Medicine 09/20/23 Mckayla Bals NP [address] [place] [address] PCP [facility] 09/07/23 09/05/90 Mckayla Blas NP [address] [place] [address] Nurse Practitioner Family Medicine 09/20/23 [employer] Utility Air[employer] Relationship Specialty Start Date End Date Ty Amin MD [address] [place] [address] PCP - General Family Medicine 09/20/23 Mckayla Blas NP [address] [place] [address] PCP - [facility] 09/07/23 09/05/90 Mckayla Blas NP [address] [place] [address] Nurse Practitioner Family Medicine 09/20/23 [employer] Utility Aircre[employer] Relationship Specialty Start Date End Date Ty Amin MD [address] [place] [address] PCP - General Family Medicine 09/20/23 Mckayla Blas NP [address] [place] [address] PCP [facility] 09/07/23 09/05/90 Mckayla Blas NP [address] [place] [address] Nurse Practitioner Family Medicine 09/20/23 [employer] Utility Air[employer] Relationship Specialty Start Date End Date Ty Amin MD [address] [place] [address] PCP - General Family Medicine 09/20/23 Mckayla Blas NP [address] [place] [address] PCP - [facility] 09/07/23 09/05/90 Mckayla Blas NP [address] [place] [address] Nurse Practitioner Family Medicine 09/20/23 [employer] Utility Aircre[employer] Relationship Specialty Start Date End Date Ty Amin MD [address] [place] [address] PCP - General Family Medicine 09/20/23 Mckayla Blas NP [address] [place] [address] Nurse Practitioner Family Medicine 09/20/23 [employer] Relationship Specialty Start Date End Date Ty Amin MD [address] [place] [address] PCP - General Family Medicine 09/20/23 Mckayla Blas NP [address] [place] [address] Nurse Practitioner Family Medicine 09/20/23 [employer] Relationship Specialty Start Date End Date Ty Amin MD [address] [place] [address] PCP - General Family Medicine 09/20/23 Mckayla Blas NP [address] [place] [address] Nurse Practitioner Family Medicine 09/20/23 [employer] Air[employer] Relationship Specialty Start Date End Date Ty Amin MD [address] [place] [address] PCP - General Family Medicine 09/20/23 Mckayla Blas NP [address] [place] [address] Nurse Practitioner Family Medicine 09/20/23 [employer] Relationship Specialty Start Date End Date Ty Amin MD [address] [place] [address] PCP - General Family Medicine 09/20/23 Mckayla Blas NP [address] [place] [address] Nurse Practitioner Family Medicine 09/20/23 REASON FOR [...] BE BASED ON THE PRIMARY CLINICAL RECORDS. [employer] provides no warranty or guarantee of the accuracy or completeness of information in this document.
== END 2025-03-24 09:37 | disposition home or self-care (01) ==
LOC: WC 09:36
PROVIDERS: PCP Nurse Practitioner; Visit Provider Physician Assistant
DX: I87.311 Chronic venous hypertension (idiopathic) with ulcer of right lower extremity (principal); L97.812 Non-pressure chronic ulcer of other part of right lower leg with fat layer exposed
CPT/HCPCS: 29581

== ENCOUNTER 2025-03-25 15:20 | Emergency (ER) | payer MEDICARE, SELFPAY ==
[2025-03-25 15:23] VITALS: BP 172/82; PULSE 75; TEMP 37.2; O2SAT 93; BMI 59.5
--- OUTSIDE RECORDS SUMMARY | 2025-03-25 16:53 | XMS_ITS | CCD ---
Author Organization [facility] Care Team Providers Care Inbound Sales Advisor Name Role Phone James Benavidez Primary Care Provider JAMES BENAVIDEZ Primary Care Unavailable SHENDGE, VITHAL Admitting Unavailable SHENDGE, VITHAL Attending Unavailable AICHHOLZ, MCKAYLA Primary Care Unavailable AICHHOLZ, MCKAYLA Referring Unavailable AICHHOLZ, MCKAYLA J Primary Care Physician [phone] Tico, Stephanie Unavailable OLE RAMIREZ Attending Unavailable OLE RAMIREZ Consulting Unavailable AICHHOLZ, RN MED SURG MCKAYLA Primary Care Unavailable OLE RAMIREZ Admitting Unavailable ANTONY SHRESTHA Consulting Unavailable ALONDRA ., UMBERTO Admitting Unavailable ALONDRA ., UMBERTO Attending Unavailable AICHHOLZ, RN MED SURG MCKAYLA Primary Care Unavailable AFSANEH Loera, DR BOLANOS Consulting Unavailable MARYANNE POWER Consulting Unavailable GLENN KERR Consulting Unavailable YOMAIRA KERR Consulting Unavailable HATTIE GOFF Consulting Unavailable ALONDRA ., UMBERTO Consulting Unavailable TICO, STEPHANIE Attending Unavailable TICO, STEPHANIE Consulting Unavailable AICHHOLZ, RN MED SURG MCKAYLA Primary Care Unavailable TICO, STEPHANIE Admitting Unavailable REGLA ., DR DUMONT Admitting Unavailable AICHHOLZ, RN MED SURG MCKAYLA Primary Care Unavailable REGLA ., DR DUMONT Attending Unavailable ARAUZ ., DR DUMONT Consulting Unavailable COLLIN HUERTAS Consulting Unavailable CECILIA KAUFMAN Admitting Unavailable CECILIA KAUFMAN Attending Unavailable AICHHOLZ, RN MED SURG MCKAYLA Primary Care Unavailable RAFAEL GONGORA Attending Unavailable RAFAEL GONGORA Admitting Unavailable AICHHOLZ, RN MED SURG MCKAYLA Primary Care Unavailable AICHHOLZ, RN MED SURG MCKAYLA Admitting Unavailable AICHHOLZ, RN MED SURG MCKAYLA Primary Care Unavailable AICHHOLZ, RN MED SURG MCKAYLA Attending Unavailable AICHHOLZ, RN MED SURG MCKAYLA Consulting Unavailable LAKSHMIPATHY ., NARENDRANATH Attending Anette vailable LAKSHMIPATHY ., NARENDRANATH Consulting Anette vailable LAKSHMIPATHY ., NARENDRANATH Admitting Anette vailable AICHHOLZ, RN MED SURG MCKAYLA Primary Care Unavailable VALENZUELA ., GIL Consulting Unavailable MORTENSEN ., DR CHAPARRO Aguillon Attending Unavailable MORTENSEN ., DR CHAPARRO Aguillon Admitting Unavailable AICHHOLZ, RN MED SURG MCKAYLA Primary Care Unavailable VALENZUELA ., GIL Consulting Unavailable MORTENSEN ., DR CHAPAROR Aguillon Admitting Unavailable AICHHOLZ, RN MED SURG MCKAYLA Primary Care Unavailable MORTENSEN ., DR CHAPARRO Aguillon Attending Unavailable HALKER ., SUBHASH Consulting Unavailable LAKSHMIPATHY ., NARENDRANATH Admitting Anette vailable LAKSHMIPATHY ., NARENDRANATH Attending Anette vailable AICHHOLZ, RN MED SURG MCKAYLA Primary Care Unavailable MORTENSEN ., DR CHAPARRO Aguillon Attending Unavailable MORTENSEN ., DR CHAPARRO Aguillon Admitting Unavailable VALENZUELA ., GIL Consulting Unavailable AICHHOLZ, RN MED SURG MCKAYLA Primary Care Unavailable VALENZUELA ., GIL Consulting Unavailable MORTENSEN ., DR CHAPARRO Aguillon Attending Unavailable MORTENSEN ., DR CHAPARRO Aguillon Admitting Unavailable AICHHOLZ, RN MED SURG MCKAYLA Primary Care Unavailable HATTIE BRODERICK Attending Unavailable HATTIE BRODERICK Admitting Unavailable AICHHOLZ, RN MED SURG MCKAYLA Primary Care Unavailable AICHHOLZ, RN MED SURG MCKAYLA Admitting Unavailable AICHHOLZ, RN MED SURG MCKAYLA Consulting Unavailable AICHHOLZ, RN MED SURG MCKAYLA Primary Care Unavailable AICHHOLZ, RN MED SURG MCKAYLA Attending Unavailable AICHHOLZ, RN MED SURG MCKAYLA Primary Care Unavailable MISC, DR LESLIE Admitting Unavailable MISC, DR LESLIE Attending Unavailable MISC, DR LESLIE Consulting Unavailable DIAB ., MARIANO Admitting Unavailable DIAB ., MARINAO Attending Unavailable DIAB ., MARIANO Consulting Unavailable AICHHOLZ, RN MED SURG CMKAYLA Primary Care Unavailable RASTEGAR, RICCO Consulting Unavailable AICHHOLZ, RN MED SURG MCKAYLA Admitting Unavailable AICHHOLZ, RN MED SURG MCKAYLA Primary Care Unavailable AICHHOLZ, RN MED SURG MCKAYLA Attending Unavailable AICHHOLZ, RN MED SURG MCKAYLA Consulting Unavailable DR PATRICIA VELOZ Consulting Unavailable TAMLYN ., CECILIA Attending Unavailable TAMLYN ., CECILIA Admitting Unavailable DR PATRICIA VELOZ Consulting Unavailable AICHHOLZ, RN MED SURG MCKAYLA Primary Care Unavailable TAMLYN ., CECILIA Consulting Unavailable MORTENSEN ., DR CHAPARRO Aguillon Attending Unavailable FESTUS ., DR CHAPARRO Aguillon Consulting Unavailable FESTUS ., DR CHAPARRO Aguillon Admitting Unavailable AICHHOLZ, RN MED SURG MCKAYLA Primary Care Unavailable HATTIE BRODERICK Attending Unavailable HATTIE BRODERICK Consulting Unavailable HATTIE BRODERICK Admitting Unavailable AICHHOLZ, RN MED SURG MCKAYLA Primary Care Unavailable HATTIE BAUTISTA Unavailable AICHHOLZ, RN MED SURG MCKAYLA Admitting Unavailable AICHHOLZ, RN MED SURG MCKAYLA Attending Unavailable AICHHOLZ, RN MED SURG MCKAYLA Consulting Unavailable AICHHOLZ, RN MED SURG MCKAYLA Primary Care Unavailable Brennan PHIPPS, Ty Primary Care Provider [phone] Brennan PHIPPS, Ty Primary Care Provider [phone] Aichholz CERTIFIED PROSTHETIST, Mckayla Unavailable Aichholz CERTIFIED PROSTHETIST, Mckayla Unavailable Elbert ARAUZ Attending Unavailable SARAH VEGA Attending Unavailable AICHHOLZ, MCKAYLA Attending Unavailable RAIN SOUZA F Attending Unavailable AICHHOLZ, MCKAYLA Attending Unavailable AICHHOLZ, MCKAYLA Attending Unavailable AICHHOLZ, MCKAYLA Attending Unavailable LIBBYRAIN GIANG F Attending Unavailable AICHHOLZ, MCKAYLA Attending Unavailable LIBBYRAIN GIANG F Attending Unavailable LIBBY, AHMAD F Referring Unavailable AICHHOLZ, MCKAYLA Attending Unavailable DAKOTAH BRIDGES Attending Unavailable AMI ORO Attending Unavailable Aichholz CERTIFIED PROSTHETIST, Mckayla Unavailable Adonay CHAU, Flynn Arzate Attending Unavailab le Bob COLORIST-RN MED SURG, Omero Lovell Attending Unav ailable Adonay CHAU, Flynn Arzate Referring Unavailab lolita Kellogg MD, Corinne Ghosh Attending Unavail able Bob COLORIST-RN MED SURG, Omero Lovell Attending Unav ailable Adonay CHAU, Flynn Arzate Attending Unavailab le Bob COLORIST-RN MED SURG, Omero Lovell Attending Unav ailable Allergies Allergy Classification Reported Allergen(s) Allergy Type Date of Onset Reaction(s) Facility (1 source) No Known Medication Allergies; Translations: [No Known Medication Allergies] Propensity to adverse reactions (disorder) [facility] Repository Medications Current Medications Medication Drug Class(es) Dates Sig (Normalized) Sig (Original) 0.5 ML tirzepatide 30 MG/ML Auto-Injector [Moungenevievero] (1 source) Start: 06-11-2024 inject 15 mg by subcutaneous injection every week Mounjaro 15 mg/0.5 mL subcutaneous solution INJECT 15MG SUBCUTANEOUSLY ONCE A WEEK Start Date: 06/11/24 Status: Ordered acetaminophen 325 mg / HYDROcodone bitartrate 5 mg oral tablet (20 sources) Opioid Agonist Start: 02-06-2022 acetaminophen-hydroc odone 325 mg-5 mg oral tablet Refill(s) 0 Start Date: 02/06/22 Status: Ordered HYDROcodone-acet aminophen (Orono) 5-325 MG tablet 1 tablet 3 (three) times a day as needed for severe pain. Active take 1 tablet by vandana twice daily as needed Orono 5-325 MG 1 tablet as needed Orally [...] every week ergocalciferol (Vitamin D2) 1.25 MG (57575 UT) capsule Indications: Vitamin D deficiency, unspecified Take 1 capsule (1.25 mg) by mouth 1 (one) time per week 12 capsule 1 01/16/2025 04/10/2025 Active Start: 10-27-2024 End: 01-19-2025 take 1 capsule by mouth two times weekly ergocalciferol (Vitamin D2) 1.25 MG (75357 UT) capsule Indications: Vitamin D deficiency, unspecified Take 1 capsule (1.25 mg) by mouth 2 (two) times a week 24 capsule 1 10/27/2024 01/19/2025 Active Start: 04-06-2024 End: 10-27-2024 take 1 capsule by mouth every week ergocalciferol (Vitamin D2) 1.25 MG (25505 UT) capsule Indications: Vitamin D deficiency, unspecified [...] Other mcfp (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 therapy; Translations: [OTH [facility] CURRENT DRUG THERAPY] Onset: 12-05-2022 Episodic Other aftercare (1 source) 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; Translations: [[facility] CURRENT USE OF ASPIRIN] Onset: 12-05-2022 Episodic Other aftercare (6 sources) Long-term current use of insulin; Translations: [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 Packs Electronically signed by Bob REBOLLEDOOmero Nas 03/23/25 12:01 EDT Normal [facility] Podiatry Office/Clinic Noteo n 03-11-2025 Podiatry Office/Clinic [...] wraps (gauze, tila bandage, Coban II, tuba underwriting consultant), Dakins solution, a 40-day course of antibiotics, [...] other blood thinners. The patient resides in [place]. Review of Systems Constitutional: Negative for signs [...] extremities Positi (more content not included)... Normal [facility] Comment on above: Order Comment: Destiny ocampo Attachment [id number] Can be viewed in source system XR [...] Electronically Signed in Other Vendor System) Normal [facility] Orders Onlyon 01-30-2025 Orders Only [id number] Mitzi Macias 1970 F Date Provider Department Center 01/30/2025 [id number], HISTORICAL [facility] Family History Problem Relation Age of Onset Heart attack Paternal Grandmother Family Status - Relation Status Age at Mother Father Paternal Grandmother Normal [facility] CA ECHO DOPPLER COMPLETEon 0 01-29-2025 [place] [id number] Cardiology Report Signed Patient: MITZI MACIAS MR#: [id number] : 1970 Acct:[id number] Age/Sex: 54 / F ADM Date: 01/29/25 Loc: CARD Attending Dr: AMI ORO APRN Ordering Physician: AMI ROO APRN Date of Service: 01/29/25 Procedure(s): CA echo doppler complete Accession Number(s): [id number] cc: Mckayla Blas CERTIFIED PROSTHETIST; AMI ORO APRN Patient Name: MITZI MACIAS MR#: [id number] : 1970 Exam Date: 01/29/2025 Ordering Doctor: AMI ORO [facility] ECHOCARDIOGRAM REPORT PROCEDURE: CA ECHO DOPPLER [...] HERRERA Signed By: 01/29/251839 DD/ 39 TD/TT: Information Technology Professor: [facility] Radiology, Radiologist, MD - 01/29/2025 [place] [address] Cardiology Report Signed Patient: MITZI MACIAS MR#: [id number] : 1970 Acct:[id number] Age/Sex: 54 / F ADM Date: 01/29/25 Loc: CARD Attending Dr: AMI ORO APRN Ordering Physician: AMI ORO APRN Date of Service: 01/29/25 Procedure(s): CA echo doppler complete Accession Number(s): [id number] cc: Mckayla Blas CERTIFIED PROSTHETIST; AMI ORO APRN Patient Name: MITZI MACIAS MR#: [id number] : 1970 Exam Date: 01/29/2025 Ordering Doctor: [...] HERRERA Signed By: 01/29/251839 DD/ 39 TD/TT: Information Technology Professor: [facility] Radiology Study observation (narrative) [facility] CA ECHO DOPPLER COMPLETEOrde red By: Radiologist Radiology on 01-29-2025 [facility] Work Phone: Glucose (Bld) [Mass/Vol]on 0 01-29-2025 Glucose Blood, POC 121 mg/dL [facility] Laboratory - Hematology and Cell countson 01-29-2025 HbA1c (Bld) [Mass fraction] 8.4 % [facility] No Panel Informationon 01-29 Interpretation and review of laboratory results Abnormal [facility] Office Visiton 01-06-2025 Follow-up visit [id number] Mitzi Macias 1970 F Date Provider Department Center 01/06/2025 Mikaela-AMI ORO CARD [facility] Family History Problem Relation Age of Onset Heart attack Paternal Grandmother Family Status - Relation Status Age at Mother Father Paternal Grandmother Level of Service:24794 OK OFFICE/OUTPATIENT ESTABLISHED MOD [facility] 30 MIN Reason for Visit and Comments: Congestive Heart Failure [127] Hypertension [507410] Hyperlipidemia [182] Normal [facility] 36on 10-21-2024 36 Regarding lab results from 10/08/2024: MD Mickie Merritt MA Lipids, ALT AST, and BMP are normal. HbA1c was not performed. Continue current management. LM on patient's VM. Normal [facility] Glucose (Bld) [Mass/Vol]Orde red By: Mica Sauceda on 10-08-2024 Glucose Blood, POC 97 mg/dL [facility] Laboratory - Hematology and Cell countson 10-08-2024 HbA1c (Bld) [Mass fraction] 7.4 % [facility] No Panel InformationOrdered By: Mica Sauceda on 10-08-2024 [facility] TBH UA (CLEAN/CATCH) MICROSC OPIC IF INDICATEon 10-08-2024 BILIRUBIN URINE Negative NEGATIVE [facility] BLOOD URINE Negative NEGATIVE [facility] Clarity (U) CLEAR CLEAR [facility] Color (U) YELLOW YELLOW [facility] GLUCOSE URINE UA Negative NEGATIVE mg/dL [facility] Interpretation and review of laboratory results Abnormal [facility] Ketones Ql (U) Negative NEGATIVE mg/dL [facility] Leukocyte esterase Test strip Ql (U) Negative NEGATIVE [facility] NITRITE URINE Negative NEGATIVE [facility] pH (U) 5.5 [pH] 5.0 - 9.0 [facility] Protein (U) [Mass/Vol] 30 mg/dL Abnormal NEG/TRACE NO NE [facility] SPECIFIC GRAVITY URINE >=1.030 Abnormal 1.005 - 1.025 [facility] URINE MICROSCOPIC INDICATED YES [facility] UROBILINOGEN URINE 1.0 EU/dL 0.2 - [...] 0.2 [facility] TB PLT 122 Low [facility] RBC 5.52 High [facility] WBC 12.8 High [facility] Office Visiton 08-08-2024 Follow-up visit [id number] Mitzi Macias Gilberto 1970 F Date Provider Department Center 08/08/2024 [id number] BRIDGES CARD [facility] Family History Problem Relation Age of Onset Heart attack Paternal Grandmother Family Status - Relation Status Age at Paternal Grandmother Level of Service:36361 OK OFFICE/OUTPATIENT ESTABLISHED MOD MDM 30 MIN Reason for Visit and Comments: Congestive Heart Failure [127] - Denies chest pain, SOB, and palpitations. Hypertension [066344] Hyperlipidemia [182] LVH [Other] Edema [[id number]] - Denies worsening edema. She sees wound care for RLE ulcer. She was seeing the vein specialists here in town but they are moving to [place] in a few weeks. Normal [facility] Glucose (Bld) [Mass/Vol]Orde red By: Mica Sauceda on 05-27-2024 Glucose Blood, POC 158 mg/dL [facility] Laboratory - Hematology and Cell countson 05-27-2024 HbA1c (Bld) [Mass fraction] 9.2 % [facility] No Panel InformationOrdered By: Mica Sauceda on 05-27-2024 [facility] CREATININEon 05-12-2024 Creatinine [Mass/Vol] 0.92 mg/dL 0.55 - 1.02 mg/dL [facility] GFR/1.73 sq M.predicted CKD-EPI (S/P/Bld) [Vol rate/Area] >60 >=60 mL/min/1.73m 2 [facility] EGFR-NON AF [place]OREAN >60 >=60 mL/min/1.73m 2 [facility] CBC AUTO DIFFon 12-06-2022 BASO # 0.0 103/ul Normal 0.0-0.1 [facility] Comment on above: Performed By: #### C BC #### [facility] [address] [address] [address] Ashlie Hills Basophils/100 WBC (Bld) 0.1 % Critically low 0.2-2.0 [facility] Comment on above: Performed By: #### C BC #### [facility] [address] [address] [address] Ashlie Hills EO # 0.0 103/ul Normal 0.0-0.7 [facility] Comment on above: Performed By: #### C BC #### [facility] [address] [address] [address] Ashlie Hills Eosinophils/100 WBC (Bld) 0.0 % Critically low 0.9-7.0 [facility] Comment on above: Performed By: #### C BC #### [facility] [address] [address] [address] Ashlie Hills Erythrocyte distribution width (RBC) [Ratio] 14.9 % Normal 11.0-15.0 [facility] Comment on above: Performed By: #### C BC #### [facility] [address] [address] [address] Ashlie Hills Hematocrit (Bld) [Volume fraction] 46.2 % Normal 36.0-48.0 [facility] Comment on above: Performed By: #### C BC #### [facility] [address] [address] [address] Ashlie Hills Hemoglobin (Bld) [Mass/Vol] 14.7 g/dL Normal 12.0-16.0 [facility] Comment on above: Performed By: #### C BC #### [facility] [address] [address] [address] Ashlie Hills IG # 0.06 10e3/ul Critically high 0.00-0.03 [facility] Comment on above: Performed By: #### C BC #### [facility] [address] [place] [address] Dr. Ashlie Hills IG % 0.4 % Normal 0.0-0.5 [facility] Comment on above: Performed By: #### C BC #### [facility] [address] [place] [address] Dr. Ashlie Hills LYMPH # 1.3 103/ul Normal 1.2-3.8 [facility] Comment on above: Performed By: #### C BC #### [facility] [address] [place] [address] Dr. Ashlie Hills Lymphocytes/100 WBC (Bld) 9.4 % Critically low 20.5-60.0 [facility] Comment on above: Performed By: #### C BC #### [facility] [address] [place] [address] Dr. Ashlie Hills MANUAL DIFF REQ NO Normal [facility] Comment on above: Performed By: #### C BC #### [facility] [address] [place] [address] Dr. Ashlie Hills MCH (RBC) [Entitic mass] 28.4 pg Normal 26.7-34.0 [facility] Comment on above: Performed By: #### C BC #### [facility] [address] [place] [address] Dr. Ashlie Hills MCHC (RBC) [Mass/Vol] 31.8 g/dL Normal 29.9-35.2 [facility] Comment on above: Performed By: #### C BC #### [facility] [address] [place] [address] Dr. Ashlie Hills MCV (RBC) [Entitic vol] 89.4 fL Normal 81.0-99.0 [facility] Comment on above: Performed By: #### C BC #### [facility] [address] [place] [address] Dr. Ashlie Hills MONO # 0.5 103/ul Normal 0.3-0.8 [facility] Comment on above: Performed By: #### C BC #### [facility] [address] [place] [address] Dr. Ashlie Hills Monocytes/100 WBC (Bld) 3.4 % Normal 1.7-12.0 [facility] Comment on above: Performed By: #### C BC #### [facility] [address] [place] [address] Dr. Ashlie Hills NEUT # 11.8 103/ul Critically high 1.4-6.5 [facility] Comment on above: Performed By: #### C BC #### [facility] [address] [place] [address] Dr. Ashlie Hills Neutrophils/100 WBC (Bld) 86.7 % Critically high 43.0-75.0 [facility] Comment on above: Performed By: #### C BC #### [facility] [address] [place] [address] Dr. Ashlie Hills Platelet mean volume (Bld) [Entitic vol] 12.6 fL Normal 9.5-13.5 [facility] Comment on above: Performed By: #### C BC #### [facility] [address] [place] [address] Dr. Ashlie Hills PLT 133 103/ul Critically low 150-450 [facility] Comment on above: Performed By: #### C BC #### [facility] [address] [place] [address] Dr. Ashlie Hills RBC 5.17 106/ul Normal 4.20-5.40 [facility] Comment on above: Performed By: #### C BC #### [facility] [address] [place] [address] Dr. Ashlie Hills WBC 13.6 103/ul Critically high 4.0-11.0 [facility] Comment on above: Performed By: #### C BC #### [facility] [address] [place] [address] Dr. Ashlie Hills MAGNESIUMon 12-06-2022 Magnesium [Mass/Vol] 2.2 mg/dL Normal 1.8-2.4 [facility] Comment on above: Performed By: #### I NFLUAB #### [facility] [address] [address] [address] Ashlie Hills POINT OF CARE GLUCOSEon 11-08 Glucose [Mass/Vol] 340 mg/dL Critically high -106 [facility] Comment on above: Performed By: #### P OCGLUC #### [facility] [address] [place] [address] Dr. Ashlie Hills Glucose [Mass/Vol] 276 mg/dL Critically high -106 [facility] Comment on above: Performed By: #### C BC #### [facility] [address] [address] [address] Ashlie Hills Glucose [Mass/Vol] 333 mg/dL Critically high [address] [place] [address] Comment on above: Performed By: #### C BC #### [facility] [address] [place] [address] Dr. Ashlie Hills PROF CHEM 8 (BAS METB)on Anion gap [Moles/Vol] 10.9 mmol/L Normal [facility] Comment on above: Performed By: #### I NFLUAB #### [facility] [address] [address] [address] Ashlie Hills Calcium [Mass/Vol] 9.3 mg/dL Normal 8.5-10.1 [facility] Comment on above: Performed By: #### I NFLUAB #### [facility] [address] [place] [address] Dr. Ashlie Hills Chloride [Moles/Vol] 103 mmol/L Normal 98-107 [facility] Comment on above: Performed By: #### I NFLUAB #### [facility] [address] [place] [address] Dr. Ashlie Hills CO2 [Moles/Vol] 31.2 mmol/L Normal 21.0-32.0 [facility] Comment on above: Performed By: #### I NFLUAB #### [facility] [address] [place] [address] Dr. Ashlie Hills Creatinine [Mass/Vol] 0.96 mg/dL Normal 0.55-1.02 [facility] Comment on above: Performed By: #### I NFLUAB #### [facility] [address] [address] [address] Ashlie Hills EGFR-AF NORTH KOREAN >60 Normal >=60 [facility] Comment on above: Performed By: #### I NFLUAB #### [facility] [address] [address] [address] Ashlie Hills EGFR-NON AF [place]OREAN >60 Normal >=60 [facility] Comment on above: Performed By: #### I NFLUAB #### [facility] [address] [address] [address] Ashlie Hills Glucose [Mass/Vol] 288 mg/dL Critically high 74-106 [facility] Comment on above: Performed By: #### I NFLUAB #### [facility] [address] [place] [address] Dr. Ashlie Hills Potassium [Moles/Vol] 5.1 mmol/L Normal 3.5-5.1 [facility] Comment on above: Performed By: #### I NFLUAB #### [facility] [address] [address] [address] Ashlie Hills Sodium [Moles/Vol] 140 mmol/L Normal 136-145 [facility] Comment on above: Performed By: #### I NFLUAB #### [facility] [address] [address] [address] Ashlie Hills Urea nitrogen [Mass/Vol] 30.0 mg/dL Critically high 7.0-18.0 [facility] Comment on above: Performed By: #### I NFLUAB #### [facility] [address] [address] [address] Ashlie Hills Urea nitrogen/Creatinine [Mass ratio] 31.2 mg/mg Normal [facility] Comment on above: Performed By: #### I NFLUAB #### [facility] [address] [place] [address] Dr. Ashlie Hills CBC AUTO DIFFon 12-05-2022 BASO # 0.0 103/ul Normal 0.0-0.1 [facility] Comment on above: Performed By: #### C BC #### [facility] [address] [address] [address] Ashlie Hills Basophils/100 WBC (Bld) 0.4 % Normal 0.2-2.0 [facility] Comment on above: Performed By: #### C BC #### [facility] [address] [place] [address] Dr. Ashlie Hills EO # 0.0 103/ul Normal 0.0-0.7 [facility] [facility] Comment on above: Performed By: #### C BC #### [facility] [address] [place] [address] Dr. Ashlie Hills Eosinophils/100 WBC (Bld) 0.0 % Critically low 0.9-7.0 [facility] Comment on above: Performed By: #### C BC #### [facility] [address] [place] [address] Dr. Ashlie Hills Erythrocyte distribution width (RBC) [Ratio] 14.8 % Normal 11.0-15.0 [facility] Comment on above: Performed By: #### C BC #### [facility] [address] [place] [address] Dr. Ashlie Hills Hematocrit (Bld) [Volume fraction] 49.9 % Critically high 36.0-48.0 [facility] Comment on above: Performed By: #### C BC #### [facility] [address] [place] [address] Dr. Ashlie Hills Hemoglobin (Bld) [Mass/Vol] 15.7 g/dL Normal 12.0-16.0 [facility] Comment on above: Performed By: #### C BC #### [facility] [address] [place] [address] Dr. Ashlie Hills IG # 0.04 10e3/ul Critically high 0.00-0.03 [facility] Comment on above: Performed By: #### C BC #### [facility] [address] [place] [address] Dr. Ashlie Hills IG % 0.5 % Normal 0.0-0.5 [facility] Comment on above: Performed By: #### C BC #### [facility] [address] [address] [address] Ashlie Hills LYMPH # 1.1 103/ul Critically low 1.2-3.8 [facility] Comment on above: Performed By: #### C BC #### [facility] [address] [address] [address] Ashlie Hills Lymphocytes/100 WBC (Bld) 12.7 % Critically low 20.5-60.0 [facility] Comment on above: Performed By: #### C BC #### [facility] [address] [place] [address] Dr. Ashlie Hills MANUAL DIFF REQ NO Normal [facility] Comment on above: Performed By: #### C BC #### [facility] [address] [place] [address] Dr. Ashlie Hills MCH (RBC) [Entitic mass] 28.1 pg Normal 26.7-34.0 [facility] Comment on above: Performed By: #### C BC #### [facility] [address] [place] [address] Dr. Ashlie Hills MCHC (RBC) [Mass/Vol] 31.5 g/dL Normal 29.9-35.2 [facility] Comment on above: Performed By: #### C BC #### [facility] [address] [place] [address] Dr. Ashlie Hills MCV (RBC) [Entitic vol] 89.3 fL Normal 81.0-99.0 [facility] Comment on above: Performed By: #### C BC #### [facility] [address] [address] [address] Ashlie Hills MONO # 0.1 103/ul Critically low 0.3-0.8 [facility] Comment on above: Performed By: #### C BC #### [facility] [address] [place] [address] Dr. Ashlie Hills Monocytes/100 WBC (Bld) 1.3 % Critically low 1.7-12.0 [facility] Comment on above: Performed By: #### C BC #### [facility] [address] [address] [address] Ashlie Hills NEUT # 7.2 103/ul Critically high 1.4-6.5 [facility] Comment on above: Performed By: #### C BC #### [facility] [address] [address] [address] Ashlie Hills Neutrophils/100 WBC (Bld) 85.1 % Critically high 43.0-75.0 [facility] Comment on above: Performed By: #### C BC #### [facility] [address] [address] [address] Ashlie Hills Platelet mean volume (Bld) [Entitic vol] 12.2 fL Normal 9.5-13.5 [facility] Comment on above: Performed By: #### C BC #### [facility] [address] [address] [address] Ashlie Hills PLT 116 103/ul Critically low 150-450 [facility] Comment on above: Performed By: #### C BC #### [facility] [address] [address] [address] Ashlie Hills RBC 5.59 106/ul Critically high 4.20-5.40 [facility] Comment on above: Performed By: #### C BC #### [facility] [address] [address] [address] Ashlie Hills WBC 8.5 103/ul Normal 4.0-11.0 [facility] Comment on above: Performed By: #### C BC #### [facility] [address] [place] [address] Dr. Ashlie Hills CTA CHEST WO W [...] by: HATTIE GOFF Date: 2022-12-05 01:52 Normal [facility] MAGNESIUMon 12-05-2022 Magnesium [Mass/Vol] 2.1 mg/dL Normal 1.8-2.4 [facility] Comment on above: Performed By: #### P OCGLUC #### [facility] [address] [address] [address] Ashlie Hills POINT OF CARE GLUCOSEon 11-08 Glucose [Mass/Vol] 293 mg/dL Critically high -106 [facility] Comment on above: Performed By: #### P OCGLUC #### [facility] [address] [address] [address] Ashlie Hills Glucose [Mass/Vol] 269 mg/dL Critically high -106 [facility] Comment on above: Performed By: #### P OCGLUC #### [facility] [address] [address] [address] Ashlie Hills Glucose [Mass/Vol] 223 mg/dL Critically high -106 [facility] Comment on above: Performed By: #### C VDAGS #### [facility] [address] [address] [address] Ashlie Hills PROF CHEM 8 (BAS METB)on Anion gap [Moles/Vol] 11.6 mmol/L Normal [facility] Comment on above: Performed By: #### P OCGLUC #### [facility] [address] [address] [address] Ashlie Hills Calcium [Mass/Vol] 9.2 mg/dL Normal 8.5-10.1 [facility] Comment on above: Performed By: #### P OCGLUC #### [facility] [address] [address] [address] Ashlie Hills Chloride [Moles/Vol] 102 mmol/L Normal 98-107 [facility] Comment on above: Performed By: #### P OCGLUC #### [facility] [address] [address] [address] Ashlie Hills CO2 [Moles/Vol] 28.7 mmol/L Normal 21.0-32.0 [facility] Comment on above: Performed By: #### P OCGLUC #### [facility] [address] [address] [address] Ashlie Hills Creatinine [Mass/Vol] 1.04 mg/dL Critically high 0.55-1.02 [facility] Comment on above: Performed By: #### P OCGLUC #### [facility] [address] [address] [address] Ashlie Hills EGFR-AF [place]OREAN >60 Normal >=60 [facility] Comment on above: Performed By: #### P OCGLUC #### [facility] [address] [address] [address] Ashlie Hills EGFR-NON AF [place] 56 mL/min/1.73m2 Critically low >=60 [facility] Comment on above: Performed By: #### P OCGLUC #### [facility] [address] [address] [address] Ashlie Hills Glucose [Mass/Vol] 231 mg/dL Critically high 74-106 [facility] Comment on above: Performed By: #### P OCGLUC #### [facility] [address] [address] [address] Ashlie Hills Potassium [Moles/Vol] 4.3 mmol/L Normal 3.5-5.1 [facility] Comment on above: Performed By: #### P OCGLUC #### [facility] [address] [address] [address] Ashlie Hills Sodium [Moles/Vol] 138 mmol/L Normal 136-145 [facility] Comment on above: Performed By: #### P OCGLUC #### [facility] [address] [address] [address] Ashlie Hills Urea nitrogen [Mass/Vol] 17.0 mg/dL Normal 7.0-18.0 [facility] Comment on above: Performed By: #### P OCGLUC #### [facility] [address] [place] [address] Dr. Ashlie Hills Urea nitrogen/Creatinine [Mass ratio] 16.3 mg/mg Normal [facility] Comment on above: Performed By: #### P OCGLUC #### [facility] [address] [address] [address] Ashlie Hills RESPIRATORY PANEL PLUSon Adenovirus Not detected Normal NOT DETECTED [facility] Comment on above: Performed By: #### C VDAGS #### [facility] [address] [place] [address] Dr. Ashlie Shaffer. Parapertusis Not detected Normal NOT DETECTED [facility] Comment on above: Performed By: #### C VDAGS #### [facility] [address] [address] [address] Ashlie Shaffer. Pertussis Not detected Normal NOT DETECTED [facility] Comment on above: Performed By: #### C VDAGS #### [facility] [address] [address] [address] Ashlie Hills Chlamydia Pneumoniae Not detected Normal NOT DETECTED [facility] Comment on above: Performed By: #### C VDAGS #### [facility] [address] [place] [address] Dr. Ashlie Hills Coronavirus 229E Not detected Normal NOT DETECTED [facility] Comment on above: Performed By: #### C VDAGS #### [facility] [address] [address] [address] Ashlie Hills Coronavirus HKU1 Not detected Normal NOT DETECTED [facility] Comment on above: Performed By: #### C VDAGS #### [facility] [address] [place] [address] Dr. Ashlie Hills Coronavirus NL63 Not detected Normal NOT DETECTED [facility] Comment on above: Performed By: #### C VDAGS #### [facility] [address] [place] [address] Dr. Ashlie Hills Coronavirus OC43 Not detected Normal NOT DETECTED [facility] Comment on above: Performed By: #### C VDAGS #### [facility] [address] [place] [address] Dr. Ashlie Hills Influenza A H1 Not detected Normal NOT DETECTED [facility] Comment on above: Performed By: #### C VDAGS #### [facility] [address] [place] [address] Dr. Ashlie Hills Influenza A H1 2009 Not detected Normal NOT DETECTED [facility] Comment on above: Performed By: #### C VDAGS #### [facility] [address] [place] [address] Dr. Ashlie Hills Influenza A H3 Not detected Normal NOT DETECTED [facility] Comment on above: Performed By: #### C VDAGS #### [facility] [address] [place] [address] Dr. Ashlie Hills Influenza B Not detected Normal NOT DETECTED [facility] Comment on above: Performed By: #### C VDAGS #### [facility] [address] [place] [address] Dr. Ashlie Hills Metapneumovirus Not detected Normal NOT DETECTED [facility] Comment on above: Performed By: #### C VDAGS #### [facility] [address] [place] [address] Dr. Ashlie Hills Mycoplas. Pneumoniae Not detected Normal NOT DETECTED [facility] Comment on above: Performed By: #### C VDAGS #### [facility] [address] [place] [address] Dr. Ashlie Hills Parainfluenza 1 Not detected Normal NOT DETECTED [facility] Comment on above: Performed By: #### C VDAGS #### [facility] [address] [place] [address] Dr. Ashlie Hills Parainfluenza 2 Not detected Normal NOT DETECTED [facility] Comment on above: Performed By: #### C VDAGS #### [facility] [address] [place] [address] Dr. Ashlie Hills Parainfluenza 3 Detected Abnormal NOT DETECTED [facility] Comment on above: Performed By: #### C VDAGS #### [facility] [address] [place] [address] Dr. Ashlie Hills Parainfluenza 4 Not detected Normal NOT DETECTED [facility] Comment on above: Performed By: #### C VDAGS #### [facility] [address] [place] [address] Dr. Ashlie Hills Rhino/Enterovirus Not detected Normal NOT DETECTED [facility] Comment on above: Performed By: #### C VDAGS #### [facility] [address] [place] [address] Dr. Ashlie Hills RP2 Header 1 RESPIRATORY PANEL: VIRUSES Normal [facility] Comment on above: Performed By: #### C VDAGS #### [facility] [address] [place] [address] Dr. Ashlie Hills RP2 Header 2 RESPIRATORY PANEL: BACTERIA Normal [facility] Comment on above: Performed By: #### C VDAGS #### [facility] [address] [place] [address] Dr. Ashlie Hills RSV Not detected Normal NOT DETECTED [facility] Comment on above: Performed By: #### C VDAGS #### [facility] [address] [place] [address] Dr. Ashlie Hills SARS-CoV-2 (COVID-19) RNA MADDY+probe Ql (Unsp spec) Not detected Normal NOT DETECTED [facility] Comment on above: Performed By: #### C VDAGS #### [facility] [address] [place] [address] Dr. Ashlie Hills XR CHEST 1 Von [...] MARYANNE POWER Date: 2022-12-04 22:23 Normal [facility] BLOOD GASES BTYon 12-04-2022 02 MODE ROOM AIR Normal [facility] Comment on above: Performed By: #### C BC #### [facility] [address] [place] [address] Dr. Ashlie Hills ALLENS TEST Positive Normal [facility] Comment on above: Performed By: #### C BC #### [facility] [address] [place] [address] Dr. Ashlie Hills Base excess Calc (Bld) [Moles/Vol] 5.4 mmol/L Critically high -2.0-2.0 [facility] Comment on above: Performed By: #### C BC #### [facility] [address] [place] [address] Dr. Ashlie Hills BIPAP PRESSURE Normal [facility] Comment on above: Performed By: #### C BC #### [facility] [address] [place] [address] Dr[address] Ash[address] [facility] Comment on above: Performed By: #### C BC #### [facility] [address] [place] [address] Dr. Ashlie Hills FIO2 Normal [facility] Comment on above: Performed By: #### C BC #### [facility] [address] [place] [address] Dr. Ashlie Hills HCO3 (Bld) [Moles/Vol] 30.8 mmol/L Critically high 22.0-26 .0 [facility] Comment on above: Performed By: #### C BC #### [facility] [address] [place] [address] Dr. Ashlie Hills LPM Normal [facility] Comment on above: Performed By: #### C BC #### [facility] [address] [place] [address] Dr. Ashlie Hills MINUTE VOLUME Normal [facility] Comment on above: Performed By: #### C BC #### [facility] [address] [place] [address] Dr. Ashlie Hills Oxygen (Bld) [Partial pressure] 46.3 mm[Hg] Critically low 80.0-100.0 [facility] Comment on above: Performed By: #### C BC #### [facility] [address] [place] [address] Dr. Ashlie Hills Oxygen saturation in Blood 83.9 % Critically low 95.0-100.0 [facility] Comment on above: Performed By: #### C BC #### [facility] [address] [place] [address] Dr. Ashlie Hills PCO2 54.2 mmHg Critically high 35.0-45.0 [facility] Comment on above: Performed By: #### C BC #### [facility] [address] [place] [address] Dr[address] [facility] Comment on above: Performed By: #### C BC #### [facility] [address] [place] [address] Dr. Ashlie Hills pH (Bld) 7.363 [pH] Normal 7.350-7.450 [facility] Comment on above: Performed By: #### C BC #### [facility] [address] [place] [address] Dr[address] [facility] Comment on above: Performed By: #### C BC #### [facility] [address] [place] [address] Dr. [address] [facility] Comment on above: Performed By: #### C BC #### [facility] [address] [place] [address] Dr. Ashlie Hills PUNCTURE SITE LR [facility] Comment on above: Performed By: #### C BC #### [facility] [address] [place] [address] Dr[address] [facility] Comment on above: Performed By: #### C BC #### [facility] [address] [place] [address] Dr. Ashlie Hills VENT MODE [facility] Comment on above: Performed By: #### C BC #### [facility] [address] [place] [address] [facility] Comment on above: Performed By: #### C BC #### [facility] [address] [place] [address] Dr. Ashlie Hills BNPon 12-04-2022 Natriuretic peptide B (Bld) [Mass/Vol] 76.0 pg/mL Normal <=900.0 [facility] Comment on above: Performed By: #### P OCGLUC #### [facility] [address] [place] [address] Dr. Ashlie Hills CBC AUTO DIFFon 12-04-2022 BASO # 0.1 103/ul Normal 0.0-0.1 [facility] Comment on above: Performed By: #### C BC #### [facility] [address] [place] [address] Dr. Ashlie Hills Basophils/100 WBC (Bld) 0.6 % Normal 0.2-2.0 [facility] Comment on above: Performed By: #### C BC #### [facility] [address] [place] [address] Dr. Ashlie Hills EO # 0.2 103/ul Normal 0.0-0.7 [facility] Comment on above: Performed By: #### C BC #### [facility] [address] [place] [address] Dr. Ashlie Hills Eosinophils/100 WBC (Bld) 1.9 % Normal 0.9-7.0 [facility] Comment on above: Performed By: #### C BC #### [facility] [address] [place] [address] Dr. Ashlie Hills Erythrocyte distribution width (RBC) [Ratio] 15.0 % Normal 11.0-15.0 [facility] Comment on above: Performed By: #### C BC #### [facility] [address] [place] [address] Dr. Ashlie Hills Hematocrit (Bld) [Volume fraction] 49.1 % Critically high 36.0-48.0 [facility] Comment on above: Performed By: #### C BC #### [facility] [address] [place] [address] Dr. Ashlie Hills Hemoglobin (Bld) [Mass/Vol] 15.6 g/dL Normal 12.0-16.0 [facility] Comment on above: Performed By: #### C BC #### [facility] [address] [place] [address] Dr. Ashlie Hills IG # 0.02 10e3/ul Normal 0.00-0.03 [facility] Comment on above: Performed By: #### C BC #### [facility] [address] [place] [address] Dr. Ashlie Hills IG % 0.2 % Normal 0.0-0.5 [facility] Comment on above: Performed By: #### C BC #### [facility] [address] [place] [address] Dr. Ashlie Hills LYMPH # 2.8 103/ul Normal 1.2-3.8 [facility] Comment on above: Performed By: #### C BC #### [facility] [address] [place] [address] Dr. Ashlie Hills Lymphocytes/100 WBC (Bld) 29.9 % Normal 20.5-60.0 [facility] Comment on above: Performed By: #### C BC #### [facility] [address] [place] [address] Dr. Ashlie Hills MANUAL DIFF REQ NO Normal [facility] Comment on above: Performed By: #### C BC #### [facility] [address] [place] [address] Dr. Ashlie Hills MCH (RBC) [Entitic mass] 28.5 pg Normal 26.7-34.0 [facility] Comment on above: Performed By: #### C BC #### [facility] [address] [place] [address] Dr. Ashlie Hills MCHC (RBC) [Mass/Vol] 31.8 g/dL Normal 29.9-35.2 [facility] Comment on above: Performed By: #### C BC #### [facility] [address] [place] [address] Dr. Ashlie Hills MCV (RBC) [Entitic vol] 89.8 fL Normal 81.0-99.0 [facility] Comment on above: Performed By: #### C BC #### [facility] [address] [place] [address] Dr. Ashlie Hills MONO # 1.0 103/ul Critically high 0.3-0.8 [facility] Comment on above: Performed By: #### C BC #### [facility] [address] [place] [address] Dr. Ashlie Hills Monocytes/100 WBC (Bld) 10.6 % Normal 1.7-12.0 [facility] Comment on above: Performed By: #### C BC #### [facility] [address] [place] [address] Dr. Ashlie Hills NEUT # 5.3 103/ul Normal 1.4-6.5 [facility] Comment on above: Performed By: #### C BC #### [facility] [address] [place] [address] Dr. Ashlie Hills Neutrophils/100 WBC (Bld) 56.8 % Normal 43.0-75.0 [facility] Comment on above: Performed By: #### C BC #### [facility] [address] [place] [address] Dr. Ashlie Hills Platelet mean volume (Bld) [Entitic vol] 12.5 fL Normal 9.5-13.5 [facility] Comment on above: Performed By: #### C BC #### [facility] [address] [place] [address] Dr. Ashlie Hills PLT 109 103/ul Critically low 150-450 [facility] Comment on above: Performed By: #### C BC #### [facility] [address] [place] [address] Dr. Ashlie Hills RBC 5.47 106/ul Critically high 4.20-5.40 [facility] Comment on above: Performed By: #### C BC #### [facility] [address] [place] [address] Dr. Ashlie Hills WBC 9.4 103/ul Normal 4.0-11.0 [facility] Comment on above: Performed By: #### C BC #### [facility] [address] [place] [address] Dr. Ashlie Hills PROF 14(COMP METB)on 023 Albumin [Mass/Vol] 2.9 g/dL Critically low 3.4-5.0 [facility] Comment on above: Performed By: #### C BC #### [facility] [address] [place] [address] Dr. Ashlie Hills Albumin/Globulin [Mass ratio] 0.6 {ratio} Normal [facility] Comment on above: Performed By: #### C BC #### [facility] [address] [place] [address] Dr. Ashlie Hills ALP [Catalytic activity/Vol] 64 U/L Normal 46-116 [facility] Comment on above: Performed By: #### C BC #### [facility] [address] [place] [address] Dr. Ashlie Hills ALT [Catalytic activity/Vol] 16 U/L Normal 14-59 [facility] Comment on above: Performed By: #### C BC #### [facility] [address] [place] [address] Dr. Ashlie Hills Anion gap [Moles/Vol] 9.6 mmol/L Normal [facility] Comment on above: Performed By: #### C BC #### [facility] [address] [address] [address] Ashlie Hills AST [Catalytic activity/Vol] 16 U/L Normal 15-37 [facility] Comment on above: Performed By: #### C BC #### [facility] [address] [address] [address] Ashlie Hills Bilirubin [Mass/Vol] 0.5 mg/dL Normal 0.2-1.0 [facility] Comment on above: Performed By: #### C BC #### [facility] [address] [address] [address] Ashlie Hills Calcium [Mass/Vol] 8.7 mg/dL Normal 8.5-10.1 [facility] Comment on above: Performed By: #### C BC #### [facility] [address] [address] [address] Ashlie Hills Chloride [Moles/Vol] 103 mmol/L Normal 98-107 [facility] Comment on above: Performed By: #### C BC #### [facility] [address] [address] [address] Ashlie Hills CO2 [Moles/Vol] 30.7 mmol/L Normal 21.0-32.0 [facility] Comment on above: Performed By: #### C BC #### [facility] [address] [address] [address] Ashlie Hills Creatinine [Mass/Vol] 0.96 mg/dL Normal 0.55-1.02 [facility] Comment on above: Performed By: #### C BC #### [facility] [address] [address] [address] Ashlie Hills EGFR-AF [place]ORE[place] >60 Normal >=60 [facility] Comment on above: Performed By: #### C BC #### [facility] [address] [address] [address] Ashlie Hills EGFR-NON AF [place] >60 Normal >=60 [facility] Comment on above: Performed By: #### C BC #### [facility] [address] [address] [address] Ashlie Hills Globulin (S) [Mass/Vol] 4.7 g/dL Normal [facility] Comment on above: Performed By: #### C BC #### [facility] [address] [address] [address] Ashlie Hills Glucose [Mass/Vol] 170 mg/dL Critically high 74-106 T [facility] Comment on above: Performed By: #### C BC #### [facility] [address] [address] [address] Ashlie Hills Potassium [Moles/Vol] 4.3 mmol/L Normal 3.5-5.1 [facility] Comment on above: Performed By: #### C BC #### [facility] [address] [place] [address] Dr. Ashlie [place] Protein [Mass/Vol] 7.6 g/dL Normal 6.4-8.2 [facility] Comment on above: Performed By: #### C BC #### [facility] [address] [place] [address] Dr. Ashlie Hills Sodium [Moles/Vol] 139 mmol/L Normal 136-145 [facility] Comment on above: Performed By: #### C BC #### [facility] [address] [place] [address] Dr. Ashlie [place] Urea nitrogen [Mass/Vol] 16.0 mg/dL Normal 7.0-18.0 [facility] Comment on above: Performed By: #### C BC #### [facility] [address] [place] [address] Dr. Ashlie [place] Urea nitrogen/Creatinine [Mass ratio] 16.7 mg/mg Normal [facility] Comment on above: Performed By: #### C BC #### [facility] [address] [place] [address] Dr. Ashlie Hills SYMPTOMATIC COVID-19 ANTIGEN on 12-04-2022 EUA Statement SEE BELOW Normal [facility] Comment on above: Result Comment: This [...] sooner. Performed By: #### C VDAGS #### [facility] [address] [place] [address] Dr. Ashlie [place] SARS-CoV-2 (COVID-19) RNA MADDY+probe Ql (Unsp spec) Negative Normal NEGATIVE [facility] Comment on above: Performed By: #### C VDAGS #### [facility] [address] [place] [address] Dr. Ashlie Hills TROPONIN, HIGH SENSITIVITYon 12-04-2022 HSTROP 8.9 pg/mL Normal 4.0-51.3 [facility] Comment on above: Result Comment: CUT- OFF POINTS HAVE BEEN ESTABLISHED BASED ON THE FOURTH UNIVERSAL DEFINITIONS OF MYOCARDIAL INFARCTION. THE UPPER REFERENCE LIMIT (URL) OF TROPONIN, DEFINED THE 99TH PERCENTILE OF cTnI DISTRIBUTION IN A REFERENCE POPULATION, HAS BEEN CONFIRMED THE DECISION THRESHOLD FOR MA DIAGNOSIS. Performed By: #### P OCGLUC #### [facility] [address] [place] [address] Dr. Ashlie Hills MICROALBUMIN, RAND URon - mALB 35.8 mg/dL Critically high <=30.0 [facility] Comment on above: Performed By: #### C VDAGS #### [facility] [address] [place] [address] Dr. Ashlie Hills UA RANDOM W/MICROSCOPICon BACTERIA NONE SEEN Normal NONE SEEN [facility] Comment on above: Performed By: #### C VDAGS #### [facility] [address] [place] [address] Dr. Ashlie [place] Bilirubin Ql (U) Negative Normal NEGATIVE [facility] Comment on above: Performed By: #### C VDAGS #### [facility] [address] [place] [address] Dr. Ashlie Hills CAST SEEN Abnormal NONE SEEN [facility] Comment on above: Performed By: #### C VDAGS #### [facility] [address] [place] [address] Dr. Ashlie Hills Clarity (U) CLEAR Normal CLEAR [facility] Comment on above: Performed By: #### C VDAGS #### [facility] [address] [place] [address] Dr. Ashlie Hills Color (U) YELLOW Normal YELLOW [facility] Comment on above: Performed By: #### C VDAGS #### [facility] [address] [place] [address] Dr. Ashlie Hills Crystals LM Nom (Urine sed) NONE SEEN Normal NONE SEEN [facility] Comment on above: Performed By: #### C VDAGS #### [facility] [address] [place] [address] Dr. Ashlie Hills Epithelial cells LM Ql (Urine sed) MODERATE Abnormal NONE SEEN /RARE [facility] Comment on above: Performed By: #### C VDAGS #### [facility] [address] [place] [address] Dr. Ashlie Hills Glucose Ql (U) Negative Normal NEGATIVE [facility] Comment on above: Performed By: #### C VDAGS #### [facility] [address] [place] [address] Dr. Ashlie Hills Hemoglobin Ql (U) TRACE-INTACT Abnormal NEGATIVE [facility] Comment on above: Performed By: #### C VDAGS #### [facility] [address] [place] [address] Dr. Ashlie Hills Ketones Ql (U) Negative Normal NEGATIVE [facility] Comment on above: Performed By: #### C VDAGS #### [facility] [address] [place] [address] Dr. Ashlie Hills LEUKOCYTES Negative Normal NEGATIVE [facility] Comment on above: Performed By: #### C VDAGS #### [facility] [address] [place] [address] Dr. Ashlie Hills MUCOUS NONE SEEN Normal NONE SEEN [facility] Comment on above: Performed By: #### C VDAGS #### [facility] [address] [place] [address] Dr. Ashlie Hills Nitrite Ql (U) Negative Normal NEGATIVE [facility] Comment on above: Performed By: #### C VDAGS #### [facility] [address] [place] [address] Dr. Ashlie Hills pH (U) 5.0 [pH] Normal 5-9 [facility] Comment on above: Performed By: #### C VDAGS #### [facility] [address] [place] [address] Dr. Ashlie Hills RBC 0-2 Normal 0-2 [facility] Comment on above: Performed By: #### C VDAGS #### [facility] [address] [place] [address] Dr. Ashlie Hills SPEC GRAVITY 1.030 Abnormal 1.005-<=1.025 [facility] Comment on above: Performed By: #### C VDAGS #### [facility] [address] [place] [address] Dr. Ashlie Hills UA PROTEIN 100 mg/dl Abnormal NEGATIVE/ TRACE [facility] Comment on above: Performed By: #### C VDAGS #### [facility] [address] [place] [address] Dr. Ashlie Hills Urobilinogen Qn (U) 0.2 {Little'U}/dL Normal 0.2 - 1. 0 [facility] Comment on above: Performed By: #### C VDAGS #### [facility] [address] [place] [address] Dr. Ashlie Hills WBC NONE SEEN Normal NONE SEEN [facility] Comment on above: Performed By: #### C VDAGS #### [facility] [address] [place] [address] Dr. Ashlie Hills CBC AUTO DIFFon 05-17-2023 BASO # 0.0 103/ul Normal 0.0-0.1 [facility] Comment on above: Performed By: #### C BC #### [facility] [address] [address] [address] Ashlie Hills Basophils/100 WBC (Bld) 0.3 % Normal 0.2-2.0 [facility] Comment on above: Performed By: #### C BC #### [facility] [address] [address] [address] Ashlie Hills EO # 0.4 103/ul Normal 0.0-0.7 [facility] Comment on above: Performed By: #### C BC #### [facility] [address] [place] [address] Dr. Ashlie Hills Eosinophils/100 WBC (Bld) 3.0 % Normal 0.9-7.0 [facility] Comment on above: Performed By: #### C BC #### [facility] [address] [place] [address] Dr. Ashlie Hills Erythrocyte distribution width (RBC) [Ratio] 15.3 % Critically high 11.0-15.0 [facility] Comment on above: Performed By: #### C BC #### [facility] [address] [place] [address] Dr. Ashlie Hills Hematocrit (Bld) [Volume fraction] 52.4 % Critically high 36.0-48.0 [facility] Comment on above: Performed By: #### C BC #### [facility] [address] [place] [address] Dr. Ashlie Hills Hemoglobin (Bld) [Mass/Vol] 16.8 g/dL Critically high 12.0-16.0 [facility] Comment on above: Performed By: #### C BC #### [facility] [address] [place] [address] Dr. Ashlie Hills IG # 0.04 10e3/ul Critically high 0.00-0.03 [facility] Comment on above: Performed By: #### C BC #### [facility] [address] [place] [address] Dr. Ashlie Hills IG % 0.3 % Normal 0.0-0.5 [facility] Comment on above: Performed By: #### C BC #### [facility] [address] [place] [address] Dr. Ashlie Hills LYMPH # 4.5 103/ul Critically high 1.2-3.8 [facility] Comment on above: Performed By: #### C BC #### [facility] [address] [place] [address] Dr. Ashlie Hills Lymphocytes/100 WBC (Bld) 33.2 % Normal 20.5-60.0 [facility] Comment on above: Performed By: #### C BC #### [facility] [address] [place] [address] Dr. Ashlie Hills MANUAL DIFF REQ NO Normal [facility] Comment on above: Performed By: #### C BC #### [facility] [address] [place] [address] Dr. Ashlie Hills MCH (RBC) [Entitic mass] 28.0 pg Normal 26.7-34.0 [facility] Comment on above: Performed By: #### C BC #### [facility] [address] [place] [address] Dr. Ashlie Hills MCHC (RBC) [Mass/Vol] 32.1 g/dL Normal 29.9-35.2 [facility] Comment on above: Performed By: #### C BC #### [facility] [address] [place] [address] Dr. Ashlie Hills MCV (RBC) [Entitic vol] 87.3 fL Normal 81.0-99.0 [facility] Comment on above: Performed By: #### C BC #### [facility] [address] [place] [address] Dr. Ashlie Hills MONO # 0.8 103/ul Normal 0.3-0.8 [facility] Comment on above: Performed By: #### C BC #### [facility] [address] [place] [address] Dr. Ashlie Hills Monocytes/100 WBC (Bld) 5.7 % Normal 1.7-12.0 [facility] Comment on above: Performed By: #### C BC #### [facility] [address] [address] [address] Ashlie Hills NEUT # 7.8 103/ul Critically high 1.4-6.5 [facility] Comment on above: Performed By: #### C BC #### [facility] [address] [address] [address] Ashlie Hills Neutrophils/100 WBC (Bld) 57.5 % Normal 43.0-75.0 [facility] Comment on above: Performed By: #### C BC #### [facility] [address] [place] [address] Dr. Ashlie Hills Platelet mean volume (Bld) [Entitic vol] 12.0 fL Normal 9.5-13.5 [facility] Comment on above: Performed By: #### C BC #### [facility] [address] [address] [address] Ashlie Hills PLT 152 103/ul Normal 150-450 [facility] Comment on above: Performed By: #### C BC #### [facility] [address] [place] [address] Dr. Ashlie Hills RBC 6.00 106/ul Critically high 4.20-5.40 [facility] Comment on above: Performed By: #### C BC #### [facility] [address] [place] [address] Dr. Ashlie Hills WBC 13.6 103/ul Critically high 4.0-11.0 [facility] Comment on above: Performed By: #### C BC #### [facility] [address] [place] [address] Dr. Ashlie Hills LIPID PROFILEon 11-22-2022 CHOL-HDL RATIO NORM SEE BELOW Normal [facility] Comment on above: Result Comment: 3.3 - 4.4 LOW RISK 4.4 - 7.1 AVERAGE RISK 7.1 - 11.0 MODERATE RISK >11.0 HIGH RISK Performed By: #### C BC #### [facility] [address] [address] [address] Ashlie Hills Cholesterol [Mass/Vol] 139 mg/dL Normal <=200 Th [facility] Comment on above: Performed By: #### C BC #### [facility] [address] [address] [address] Ashlie Hills Cholesterol in HDL [Mass/Vol] 35 mg/dL Critically low 40-60 [facility] Comment on above: Performed By: #### C BC #### [facility] [address] [address] [address] Ashlie Hills Cholesterol in LDL [Mass/Vol] 67.4 mg/dL Normal [facility] Comment on above: Performed By: #### C BC #### [facility] [address] [address] [address] Ashlie Hills Cholesterol.total/Chol esterol in HDL [Mass ratio] 4.0 {ratio} Normal [facility] Comment on above: Performed By: #### C BC #### [facility] [address] [address] [address] Ashlie Hills HDL NORMAL > or = 60 mg/dl - LOW CARDIOVASCULAR RISK <40 mg/dl - HIGH CARDIOVASCULAR RISK Normal [facility] Comment on above: Performed By: #### C BC #### [facility] [address] [address] [address] Ashlie Hills LDL CALC NORMAL SEE BELOW Normal [facility] Comment on above: Result Comment: <100 mg/dl OPTIMAL 100 - 129 mg/dl NEAR OR ABOVE OPTIMAL 130 - 159 mg/dl BORDERLINE HIGH 160 - 189 mg/dl HIGH >190 mg/dl VERY HIGH Performed By: #### C BC #### [facility] [address] [address] [address] Ashlie Hills Triglyceride [Mass/Vol] 183 mg/dL Critically high <=150 [facility] Comment on above: Performed By: #### C BC #### [facility] [address] [address] [address] Ashlie Hills VLDL CALC 36.6 mg/dL Normal [facility] Comment on above: Performed By: #### C BC #### [facility] [address] [place], [place] [address] Dr. Ashlie Hills MG MAMM SCREEN 3D ALEX CADon 11-22-2022 MG MAMM SCREEN 3D ALEX CAD Patient: MITZI MACIAS Exam Date: 11/22/2022 : 1970 Gender:F Ordering : SAYDA MCKAYLA BLAS RN MED SURG Admission #: [id number] Family : Order #: [id number] CLICK HERE TO VIEW EXAM RADIOLOGY REPORT [...] LOCATION: [facility] BREAST COMPOSITION: Almost entirely fatty. [...] M.D. on 11/22/2022 at 12:09 Normal [facility] PROF 14(COMP METB)on 023 Albumin [Mass/Vol] 3.0 g/dL Critically low 3.4-5.0 [facility] Comment on above: Performed By: #### C BC #### [facility] [address] [place], [place] [address] Dr. Ashlie Hills Albumin/Globulin [Mass ratio] 0.6 {ratio} Normal [facility] Comment on above: Performed By: #### C BC #### [facility] [address] [address] [address] Ashlie Hills ALP [Catalytic activity/Vol] 68 U/L Normal 46-116 [facility] Comment on above: Performed By: #### C BC #### [facility] [address] [address] [address] Ashlie Hills ALT [Catalytic activity/Vol] 14 U/L Normal 14-59 [facility] Comment on above: Performed By: #### C BC #### [facility] [address] [place] [address] Dr. Ashlie Hills Anion gap [Moles/Vol] 12.1 mmol/L Normal Th [facility] Comment on above: Performed By: #### C BC #### [facility] [address] [place] [address] Dr. Ashlie Hills AST [Catalytic activity/Vol] 9 U/L Critically low 15-37 [facility] Comment on above: Performed By: #### C BC #### [facility] [address] [place] [address] Dr. Ashlie Hills Bilirubin [Mass/Vol] 0.4 mg/dL Normal 0.2-1.0 [facility] Comment on above: Performed By: #### C BC #### [facility] [address] [place] [address] Dr. Ashlie Hills Calcium [Mass/Vol] 9.0 mg/dL Normal 8.5-10.1 [facility] Comment on above: Performed By: #### C BC #### [facility] [address] [place] [address] Dr. Ashlie Hills Chloride [Moles/Vol] 105 mmol/L Normal 98-107 [facility] Comment on above: Performed By: #### C BC #### [facility] [address] [place] [address] Dr. Ashlie Hills CO2 [Moles/Vol] 30.7 mmol/L Normal 21.0-32.0 [facility] Comment on above: Performed By: #### C BC #### [facility] [address] [address] [address] Ashlie Hills Creatinine [Mass/Vol] 0.77 mg/dL Normal 0.55-1.02 [facility] Comment on above: Performed By: #### C BC #### [facility] [address] [address] [address] Ashlie Hills EGFR-AF [place]TH [place]OREAN >60 Normal >=60 [facility] Comment on above: Performed By: #### C BC #### [facility] [address] [place] [address] Dr. Ashlie Hills EGFR-NON AF [place]ORE[place] >60 Normal >=60 [facility] Comment on above: Performed By: #### C BC #### [facility] [address] [place] [address] Dr. Ashlie Hills Globulin (S) [Mass/Vol] 4.8 g/dL Normal [facility] Comment on above: Performed By: #### C BC #### [facility] [address] [place] [address] Dr. Ashlie Hills Glucose [Mass/Vol] 162 mg/dL Critically high 74-106 [facility] Comment on above: Performed By: #### C BC #### [facility] [address] [place] [address] Dr. Ashlie Hills Potassium [Moles/Vol] 3.8 mmol/L Normal 3.5-5.1 [facility] Comment on above: Performed By: #### C BC #### [facility] [address] [place] [address] Dr. Ashlie Hills Protein [Mass/Vol] 7.8 g/dL Normal 6.4-8.2 [facility] Comment on above: Performed By: #### C BC #### [facility] [address] [place] [address] Dr. Ashlie Hills Sodium [Moles/Vol] 144 mmol/L Normal 136-145 [facility] Comment on above: Performed By: #### C BC #### [facility] [address] [place] [address] Dr. Ashlie Hills Urea nitrogen [Mass/Vol] 24.0 mg/dL Critically high 7.0-18.0 [facility] Comment on above: Performed By: #### C BC #### [facility] [address] [place] [address] Dr. Ashlie Hills Urea nitrogen/Creatinine [Mass ratio] 31.2 mg/mg Normal [facility] Comment on above: Performed By: #### C BC #### [facility] [address] [place] [address] Dr. Ashlie Hills CBC AUTO DIFFon 10-05-2022 BASO # 0.1 103/ul Normal 0.0-0.1 [facility] Comment on above: Performed By: #### C BC #### [facility] [address] [place] [address] Dr. Ashlie Hills Basophils/100 WBC (Bld) 0.6 % Normal 0.2-2.0 [facility] Comment on above: Performed By: #### C BC #### [facility] [address] [place] [address] Dr. Ashlie Hills EO # 0.3 103/ul Normal 0.0-0.7 [facility] Comment on above: Performed By: #### C BC #### [facility] [address] [place] [address] Dr. Ashlie Hills Eosinophils/100 WBC (Bld) 2.1 % Normal 0.9-7.0 [facility] Comment on above: Performed By: #### C BC #### [facility] [address] [place] [address] Dr. Ashlie Hills Erythrocyte distribution width (RBC) [Ratio] 15.9 % Critically high 11.0-15.0 [facility] Comment on above: Performed By: #### C BC #### [facility] [address] [place] [address] Dr. Ashlie Hills Hematocrit (Bld) [Volume fraction] 51.8 % Critically high 36.0-48.0 [facility] Comment on above: Performed By: #### C BC #### [facility] [address] [place] [address] Dr. Ashlie Hills Hemoglobin (Bld) [Mass/Vol] 16.6 g/dL Critically high 12.0-16.0 [facility] Comment on above: Performed By: #### C BC #### [facility] [address] [place] [address] Dr. Ashlie Hills IG # 0.03 10e3/ul Normal 0.00-0.03 [facility] Comment on above: Performed By: #### C BC #### [facility] [address] [place] [address] Dr. Ashlie Hills IG % 0.2 % Normal 0.0-0.5 [facility] Comment on above: Performed By: #### C BC #### [facility] [address] [place] [address] Dr. Ashlie Hills LYMPH # 3.9 103/ul Critically high 1.2-3.8 [facility] Comment on above: Performed By: #### C BC #### [facility] [address] [place] [address] Dr. Ashlie Hills Lymphocytes/100 WBC (Bld) 31.7 % Normal 20.5-60.0 [facility] Comment on above: Performed By: #### C BC #### [facility] [address] [place] [address] Dr. Ashlie Hills MANUAL DIFF REQ NO Normal [facility] Comment on above: Performed By: #### C BC #### [facility] [address] [place] [address] Dr. Ashlie Hills MCH (RBC) [Entitic mass] 27.9 pg Normal 26.7-34.0 [facility] Comment on above: Performed By: #### C BC #### [facility] [address] [place] [address] Dr. Ashlie Hills MCHC (RBC) [Mass/Vol] 32.0 g/dL Normal 29.9-35.2 [facility] Comment on above: Performed By: #### C BC #### [facility] [address] [place] [address] Dr. Ashlie Hills MCV (RBC) [Entitic vol] 87.1 fL Normal 81.0-99.0 [facility] Comment on above: Performed By: #### C BC #### [facility] [address] [place] [address] Dr. Ashlie Hills MONO # 0.7 103/ul Normal 0.3-0.8 [facility] Comment on above: Performed By: #### C BC #### [facility] [address] [address] [address] Ashlie Hills Monocytes/100 WBC (Bld) 5.8 % Normal 1.7-12.0 [facility] Comment on above: Performed By: #### C BC #### [facility] [address] [place] [address] Dr. Ashlie Hills NEUT # 7.3 103/ul Critically high 1.4-6.5 [facility] Comment on above: Performed By: #### C BC #### [facility] [address] [place] [address] Dr. Ashlie Hills Neutrophils/100 WBC (Bld) 59.6 % Normal 43.0-75.0 [facility] Comment on above: Performed By: #### C BC #### [facility] [address] [place] [address] Dr. Ashlie Hills Platelet mean volume (Bld) [Entitic vol] 11.7 fL Normal 9.5-13.5 [facility] Comment on above: Performed By: #### C BC #### [facility] [address] [place] [address] Dr. Ashlie Hills PLT 117 103/ul Critically low 150-450 [facility] Comment on above: Performed By: #### C BC #### [facility] [address] [place], [place] [id number] Dr. Ashlie Hills RBC 5.95 106/ul Critically high 4.20-5.40 [facility] Comment on above: Performed By: #### C BC #### [facility] [address] [place] [address] Dr. Ashlie Hills WBC 12.3 103/ul Critically high 4.0-11.0 [facility] Comment on above: Performed By: #### C BC #### [facility] [address] [place] [address] ABD/PELV W CONon [...] RICCO PICKARD Date: 2022-10-05 13:13 Normal [facility] ER URINE PROFILEon 3 Bilirubin Ql (U) Negative Normal NEGATIVE [facility] Comment on above: Performed By: #### P OCGLUC #### [facility] [address] [place] [address] Dr. Ashlie Hills Clarity (U) CLEAR Normal CLEAR [facility] Comment on above: Performed By: #### P OCGLUC #### [facility] [address] [place] [address] Dr. Ashlie Hills Color (U) YELLOW Normal YELLOW [facility] Comment on above: Performed By: #### P OCGLUC #### [facility] [address] [place] [address] Dr. Ashlie HOBBS A micrscopic examination will be performed if indicated. Normal [facility] Comment on above: Performed By: #### P OCGLUC #### [facility] [address] [address] [address] Ashlie Hills Glucose Ql (U) Negative Normal NEGATIVE [facility] Comment on above: Performed By: #### P OCGLUC #### [facility] [address] [address] [address] Ashlie Hills Hemoglobin Ql (U) Negative Normal NEGATIVE [facility] Comment on above: Performed By: #### P OCGLUC #### [facility] [address] [address] [address] Ashlie Hills Ketones Ql (U) Negative Normal NEGATIVE [facility] Comment on above: Performed By: #### P OCGLUC #### [facility] [address] [place] [address] Dr. Ashlie Hills LEUKOCYTES Negative Normal NEGATIVE [facility] Comment on above: Performed By: #### P OCGLUC #### [facility] [address] [address] [address] Ashlie Hills Nitrite Ql (U) Negative Normal NEGATIVE [facility] Comment on above: Performed By: #### P OCGLUC #### [facility] [address] [place] [address] Dr. Ashlie Hills pH (U) 6.0 [pH] Normal 5-9 [facility] Comment on above: Performed By: #### P OCGLUC #### [facility] [address] [place] [address] Dr. Ashlie Hills Protein (U) [Mass/Vol] 100 mg/dL Abnormal NEGAT YURY/ TRACE [facility] Comment on above: Performed By: #### P OCGLUC #### [facility] [address] [place] [address] Dr. Ashlie Hills SPEC GRAVITY 1.010 Normal 1.005-<=1.025 [facility] Comment on above: Performed By: #### P OCGLUC #### [facility] [address] [address] [address] Ashlie Hills UR MICRO IND INDICATED Normal [facility] Comment on above: Performed By: #### P OCGLUC #### [facility] [address] [place] [address] Dr. Ashlie Hills Urobilinogen Qn (U) 1.0 {Little'U}/dL Normal 0.2 - 1. 0 [facility] Comment on above: Performed By: #### P OCGLUC #### [facility] [address] [place] [address] Dr. Ashlie Hills LIPASEon 10-05-2022 Lipase [Catalytic activity/Vol] 1771.0 U/L Critically high 73.0-393.0 [facility] Comment on above: Performed By: #### C BC #### [facility] [address] [place] [address] Dr. Ashlie Hills PREG HCG QUALon 10-05-2022 , QUAL Negative Normal NEGATIVE [facility] Comment on above: Performed By: #### P OCGLUC #### [facility] [address] [place] [address] Dr. Ashlie Hills PROF 14(COMP METB)on 023 Albumin [Mass/Vol] 3.2 g/dL Critically low 3.4-5.0 Th [facility] Comment on above: Performed By: #### C BC #### [facility] [address] [place] [address] Dr. Ashlie Hills Albumin/Globulin [Mass ratio] 0.7 {ratio} Normal [facility] Comment on above: Performed By: #### C BC #### [facility] [address] [place] [address] Dr. Ashlie Hills ALP [Catalytic activity/Vol] 70 U/L Normal 46-116 [facility] Comment on above: Performed By: #### C BC #### [facility] [address] [place] [address] Dr. Ashlie Hills ALT [Catalytic activity/Vol] 11 U/L Critically low 14-59 [facility] Comment on above: Performed By: #### C BC #### [facility] [address] [address] [address] Ashlie Hills Anion gap [Moles/Vol] 10.3 mmol/L Normal Th [facility] Comment on above: Performed By: #### C BC #### [facility] [address] [address] [address] Ashlie Hills AST [Catalytic activity/Vol] 11 U/L Critically low 15-37 [facility] Comment on above: Performed By: #### C BC #### [facility] [address] [address] [address] Ashlie Hills Bilirubin [Mass/Vol] 0.9 mg/dL Normal 0.2-1.0 [facility] Comment on above: Performed By: #### C BC #### [facility] [address] [place] [address] Dr. Ashlie Hills Calcium [Mass/Vol] 9.3 mg/dL Normal 8.5-10.1 [facility] Comment on above: Performed By: #### C BC #### [facility] [address] [place] [address] Dr. Ashlie Hills Chloride [Moles/Vol] 105 mmol/L Normal 98-107 [facility] Comment on above: Performed By: #### C BC #### [facility] [address] [place] [address] Dr. Ashlie Hills CO2 [Moles/Vol] 30.6 mmol/L Normal 21.0-32.0 [facility] Comment on above: Performed By: #### C BC #### [facility] [address] [place] [address] Dr. Ashlie Hills Creatinine [Mass/Vol] 0.62 mg/dL Normal 0.55-1.02 [facility] Comment on above: Performed By: #### C BC #### [facility] [address] [address] [address] Ashlie Hills EGFR-AF NORTH KOREAN >60 Normal >=60 [facility] Comment on above: Performed By: #### C BC #### [facility] [address] [place] [address] Dr. Ashlie Hills EGFR-NON AF NORTH [place]OREAN >60 Normal >=60 [facility] Comment on above: Performed By: #### C BC #### [facility] [address] [place] [address] Dr. Ashlie Hills Globulin (S) [Mass/Vol] 4.6 g/dL Normal [facility] Comment on above: Performed By: #### C BC #### [facility] [address] [place] [address] Dr. Ashlie Hills Glucose [Mass/Vol] 85 mg/dL Normal 74-106 [facility] Comment on above: Performed By: #### C BC #### [facility] [address] [place] [address] Dr. Ashlie Hills Potassium [Moles/Vol] 3.9 mmol/L Normal 3.5-5.1 [facility] Comment on above: Performed By: #### C BC #### [facility] [address] [place] [address] Dr. Ashlie Hills Protein [Mass/Vol] 7.8 g/dL Normal 6.4-8.2 [facility] Comment on above: Performed By: #### C BC #### [facility] [address] [place] [address] Dr. Ashlie Hills Sodium [Moles/Vol] 142 mmol/L Normal 136-145 [facility] Comment on above: Performed By: #### C BC #### [facility] [address] [place] [address] Dr. Ashlie Hills Urea nitrogen [Mass/Vol] 12.0 mg/dL Normal 7.0-18.0 [facility] Comment on above: Performed By: #### C BC #### [facility] [address] [place] [address] Dr. Ashlie Hills Urea nitrogen/Creatinine [Mass ratio] 19.4 mg/mg Normal [facility] Comment on above: Performed By: #### C BC #### [facility] [address] [place] [address] Dr. Ashlie Hills URINE MICROSCOPIC ONLYon BACTERIA TRACE Abnormal NONE SEEN [facility] Comment on above: Performed By: #### P OCGLUC #### [facility] [address] [place] [address] Dr. Ashlie Hills Bacteria identified Cx Nom (U) NOT INDICATED Normal [facility] Comment on above: Performed By: #### P OCGLUC #### [facility] [address] [place] [address] Dr. Ashlie Hills CAST NONE SEEN Normal NONE SEEN [facility] Comment on above: Performed By: #### P OCGLUC #### [facility] [address] [place] [address] Dr. Ashlie Hills Crystals LM Nom (Urine sed) NONE SEEN Normal NONE SEEN [facility] Comment on above: Performed By: #### P OCGLUC #### [facility] [address] [place] [address] Dr. Ashlie Hills Epithelial cells LM Ql (Urine sed) MODERATE Abnormal NONE SEEN /RARE [facility] Comment on above: Performed By: #### P OCGLUC #### [facility] [address] [place] [address] Dr. Ashlie Hills MUCOUS NONE SEEN Normal NONE SEEN [facility] Comment on above: Performed By: #### P OCGLUC #### [facility] [address] [place] [address] Dr. Ashlie Hills RBC 0-2 Normal 0-2 [facility] Comment on above: Performed By: #### P OCGLUC #### [facility] [address] [place] [address] Dr. Ashlie Hills WBC 0-2 Abnormal NONE SEEN [facility] Comment on above: Performed By: #### P OCGLUC #### [facility] [address] [place] [address] Dr. Ashlie Hills Covid-19 PCR ([facility])on 09-06 SARS-CoV-2 (COVID-19) RNA MADDY+probe Ql (Unsp spec) Detected Abnormal NOT DETECTED [facility] Comment on above: Result Comment: This test is not yet approved or cleared by the [place] FDA. When there are no FDA-approved or cleared tests available, and other criteria are met, FDA can make tests available under an emergency access mechanism called an Emergency Use Authorization (EUA). The EUA for this test is supported by the [place] of Health and Human Service's declaration that [...] used). Performed By: #### C VDAGS #### [facility] [address] [place] [address] Dr. Ashlie Hills [facility] Normal [facility] Comment on above: Result Comment: Nega tive for Flu A protein angiten. Infection due to Flu A cannot be ruled out. Flu A angiten in the sample may be below the detection limit of the test. Performed By: #### I NFLUAB #### [facility] [address] [place] [address] Dr. Ashlie Hills INFLUBNEG SEE BELOW Normal [facility] Comment on above: Result Comment: Nega tive for Flu B protein antigen. Infection due to Flu B cannot be ruled out. Flu B antigen in the sample may be below the detection limit of the test. Performed By: #### I NFLUAB #### [facility] [address] [place] [address] Dr. Ashlie Hills INFLUENZA A AG Negative Normal NEGATIVE SEE COMMENT [facility] Comment on above: Performed By: #### I NFLUAB #### [facility] [address] [place] [address] Dr. Ashlie Hills INFLUENZA B AG Negative Normal NEGATIVE SEE COMMENT [facility] Comment on above: Performed By: #### I NFLUAB #### [facility] [address] [place] [address] ABD/PELV W CONon [...] to at least 10/21/2018, unchanged. https://www.ncbi.nlm .nih.gov/pmc/article s/[id number]/ Electronically authenticated by: COLLIN HUERTAS Date: 2022-07-27 14:56 Normal [facility] CREATININEon 07-18-2022 Creatinine [Mass/Vol] 0.81 mg/dL Normal 0.55-1.02 [facility] Comment on above: Performed By: #### C BC #### [facility] [address] [place] [address] Dr. Ashlie Hills EGFR-AF NORTH KOREAN >60 Normal >=60 [facility] Comment on above: Performed By: #### C BC #### [facility] [address] [place] [address] Dr. Ashlie Hills EGFR-NON AF [place]TH KOREAN >60 Normal >=60 [facility] Comment on above: Performed By: #### C BC #### [facility] [address] [place] [address] LOW EXT W [...] PATRICIA VELOZ Date: 2022-07-18 14:58 Normal [facility] XR KNEE LT 1_2 Von 3 [...] HATTIE BAUTISTA Date: 2022-07-18 12:00 Normal [facility] Covid-19 PCR ([facility])on 06-09 SARS-CoV-2 (COVID-19) RNA MADDY+probe Ql (Unsp spec) Not detected Normal NOT DETECTED [facility] Comment on above: Result Comment: This test is not yet approved or cleared by the [place] FDA. When there are no FDA-approved or cleared tests available, and other criteria are met, FDA can make tests available under an emergency access mechanism called an Emergency Use Authorization (EUA). The EUA for this test is supported by the [place] of Health and Human Service's (HHS's) declaration [...] SARS-CoV-2. Performed By: #### C BC #### [facility] [address] [place] [address] Dr. Ashlie Hills INFLUENZA A AND B AGon 07-06 INFLUANE SEE BELOW Normal [facility] Comment on above: Result Comment: Nega tive for Flu A protein angiten. Infection due to Flu A cannot be ruled out. Flu A angiten in the sample may be below the detection limit of the test. Performed By: #### C BC #### [facility] [address] [place] [address] Dr. Ashlie Hills INFLUBNEG SEE BELOW Normal [facility] Comment on above: Result Comment: Nega tive for Flu B protein antigen. Infection due to Flu B cannot be ruled out. Flu B antigen in the sample may be below the detection limit of the test. Performed By: #### C BC #### [facility] [address] [place] [address] Dr. Ashlie Hills INFLUENZA A AG Negative Normal NEGATIVE SEE COMMENT [facility] Comment on above: Performed By: #### C BC #### [facility] [address] [place] [address] Dr. Ashlie Hills INFLUENZA B AG Negative Normal NEGATIVE SEE COMMENT [facility] Comment on above: Performed By: #### C BC #### [facility] [address] [place] [address] Dr. Ashlie Hills POINT OF CARE GLUCOSEon - Glucose [Mass/Vol] 108 mg/dL Critically high 74-106 T [facility] Comment on above: Performed By: #### C BC #### [facility] [address] [place] [address] Dr. Ashlie Hills RAGHU by IFAon 03-07-2022 Antinuclear Antibodies, IFA Negative Normal [facility] Comment on above: Result Comment: Nega tive <1:80 Borderline 1:80 Positive >1:80 ICAP nomenclature: AC-0 For more information about Hep-2 cell patterns use ANApatterns.org, the official website for the International Consensus on Antinuclear Antibody (RAGHU) Patterns (ICAP). Performed By: #### A ROSE #### [facility] [address] [place] [address] Dr. Ashlie Hills IMMUNOFIXATION (TREVON), URINEo n 03-07-2022 TREVON Interpretation:U Comment Normal [facility] Comment on above: Result Comment: No m onoclonality detected. Performed By: #### C BC #### [facility] [address] [place] [address] Dr. Ashlie Hills IMMUNOFIXATION(TREVON),PROTEIN ELEC(PE),[facility] 03-07-2022 Albumin [Mass/Vol] 3.0 g/dL Normal 2.9-4.4 [facility] Comment on above: Performed By: #### I NFLUAB #### [facility] [address] [place] [address] Dr. Ashlie Hills Albumin/Globulin [Mass ratio] 0.8 {ratio} Normal 0.7-1.7 [facility] Comment on above: Performed By: #### I NFLUAB #### [facility] [address] [place] [address] Dr. Ashlie Hills Vnfhb-9-Favhlicb 0.3 g/dL Normal 0.0-0.4 [facility] Comment on above: Performed By: #### I NFLUAB #### [facility] [address] [place] [address] Dr. Ashlie Hills Xgmjt-7-Dagnstyu 1.0 g/dL Normal 0.4-1.0 [facility] Comment on above: Performed By: #### I NFLUAB #### [facility] [address] [place] [address] Dr. Ashlie Hills Beta Globulin 1.8 g/dL Critically high 0.7-1.3 [facility] Comment on above: Performed By: #### I NFLUAB #### [facility] [address] [place] [address] Dr. Ashlie Hills Free [place] Lt Chains,S 45.2 mg/L Critically high 3.3-19.4 [facility] Comment on above: Performed By: #### I NFLUAB #### [facility] [address] [place] [address] Dr. Ashlie Hills Free Lambda Lt Chains,S 40.3 mg/L Critically high 5.7-26.3 [facility] Comment on above: Performed By: #### I NFLUAB #### [facility] [address] [address] [address] Ashlie Hills Gamma Globulin 0.8 g/dL Normal 0.4-1.8 [facility] Comment on above: Performed By: #### I NFLUAB #### [facility] [address] [place] [address] Dr. Ashlie Hills Globulin (S) [Mass/Vol] 3.9 g/dL Normal 2.2-3.9 [facility] Comment on above: Performed By: #### I NFLUAB #### [facility] [address] [place] [address] Dr. Ashlie Hills Immunofixation Result, Serum Comment Normal [facility] Comment on above: Result Comment: No m onoclonality detected. Performed By: #### I NFLUAB #### [facility] [address] [place] [address] Dr. Ashlie Hills Immunoglobulin A, Qn, Serum 776 mg/dL Critically high 87-352 [facility] Comment on above: Performed By: #### I NFLUAB #### [facility] [address] [place] [address] Dr. Ashlie Hills Immunoglobulin G, Qn, Serum 955 mg/dL Normal 586-1602 [facility] Comment on above: Performed By: #### I NFLUAB #### [facility] [address] [place] [address] Dr. Ashlie Hills Immunoglobulin M, Qn, Serum 39 mg/dL Normal 26-217 [facility] Comment on above: Performed By: #### I NFLUAB #### [facility] [address] [place] [address] Dr. Ashlie Hills [place]/Lambda Ratio, S 1.12 Normal 0.26-1.65 [facility] Comment on above: Performed By: #### I NFLUAB #### [facility] [address] [place] [address] Dr. Ashlie Hills M-Bright Not Observed Normal Not Observed [facility] Comment on above: Performed By: #### I NFLUAB #### [facility] [address] [place] [address] Dr. Ashlie Hills PDF . Normal [facility] Comment on above: Performed By: #### I NFLUAB #### [facility] [address] [place] [address] Dr. Ashlie Hills Please note: Comment Normal [facility] Comment on above: Result Comment: Prot ein electrophoresis scan will follow via computer, mail, or agriscience instructor delivery. Performed By: #### I NFLUAB #### [facility] [address] [place] [address] Dr. Ashlie Hills Protein [Mass/Vol] 6.9 g/dL Normal 6.0-8.5 [facility] Comment on above: Performed By: #### I NFLUAB #### [facility] [address] [place] [address] Dr. Ashlie Hills C-PEPTIDE, SERUMon C-Peptide, Serum 3.1 ng/mL Normal 1.1-4.4 [facility] Comment on above: Result Comment: C-Pe ptide reference interval is for fasting patients. Performed By: #### C PEPT #### [facility] [address] [place] [address] Dr. Ashlie Hills HEP B SURFACE ANTIGEN SCREEN on 03-04-2022 HBsAg Screen Negative Normal Negative [facility] Comment on above: Performed By: #### C BC #### [facility] [address] [place] [address] Dr. Ashlie Hills HEPATITIS C VIRUS AB W/ REFL EX QUANTon 03-04-2022 HCV AB <0.1 Normal 0.0-0.9 [facility] Comment on above: Performed By: #### I NFLUAB #### [facility] [address] [address] [address] Ashlie Hills Interpretation: Comment Normal [facility] Comment on above: Result Comment: Nega tive Not infected with HCV, unless recent infection is suspected or other evidence exists to indicate HCV infection. Performed By: #### I NFLUAB #### [facility] [address] [address] [address] Ashlie Hills MICROALBUMIN/ CREATININE RAT IOon 03-04-2022 Albumin, Urine 367.4 ug/mL Normal Not Estab. [facility] Comment on above: Performed By: #### C BC #### [facility] [address] [address] [address] Ashlie Hills Albumin/ Creatinine Ratio 239 mg/g creat Critically high 0-29 [facility] Comment on above: Result Comment: Norm al: 0 - 29 Moderately increased: 30 - 300 Severely increased: >300 Performed By: #### C BC #### [facility] [address] [address] [address] Ashlie Hills Creatinine, Urine 153.9 mg/dL Normal Not Estab. [facility] Comment on above: Performed By: #### C BC #### [facility] [address] [address] [address] Ashlie Hills VIT D 25-OH LABCORPon 2021 Vitamin D, 25-Hydroxy <4.0 Critically low 30.0-100.0 [facility] Comment on above: Result Comment: Graciela min D deficiency has been defined by the [place] [employer] and an Endocrine Society practice guideline as a level of serum 25-OH vitamin D less than 20 ng/mL (1,2). The Endocrine Society went on to further define vitamin D insufficiency as a level between 21 and 29 ng/mL (2). 1. IOM ([place] [employer]). 2010. Dietary reference intakes for calcium and D. [place]: The National Academies Press. 2. Lynda MF, Keely [place], Leandra LOPEZ, et al. Evaluation, treatment, and prevention of vitamin D deficiency: an Endocrine Society clinical practice guideline. JCEM. 2010; 96(7):1911-30. Performed By: #### C BC #### [facility] [address] [place] [address] Dr. Ashlie Hills GLYCOHEMOGLOBIN A1Con 2021 ADA RECOMMENDATION SEE BELOW Normal [facility] Comment on above: Result Comment: ADA RECOMMENDED LIMIT 4.0 - 6.0 ADA THERAPEUTIC TARGET < 7.0 ACTION SUGGESTED > 7.0 Performed By: #### C VDAGS #### [facility] [address] [place] [address] Dr. Ashlie Hills Glucose [Mass/Vol] 295 mg/dL Normal [facility] Comment on above: Performed By: #### C VDAGS #### [facility] [address] [place] [address] Dr. Ashlie Hills HbA1c (Bld) [Mass fraction] 11.9 % Critically high 4.5-6.2 [facility] Comment on above: Performed By: #### C VDAGS #### [facility] [address] [place] [address] Dr. Ashlie Hills HEMOGRAM AND PLATELon 2021 Hematocrit (Bld) [Volume fraction] 56.3 % Critically high 36.0-48.0 [facility] Comment on above: Performed By: #### C VDAGS #### [facility] [address] [place] [address] Dr. sAhlie Hills Hemoglobin (Bld) [Mass/Vol] 18.0 g/dL Critically high 12.0-16.0 [facility] Comment on above: Performed By: #### C VDAGS #### [facility] [address] [place] [address] Dr. Ashlie Hills MCH (RBC) [Entitic mass] 29.5 pg Normal 26.7-34.0 [facility] Comment on above: Performed By: #### C VDAGS #### [facility] [address] [place] [address] Dr. Ashlie Hills MCHC (RBC) [Mass/Vol] 32.0 g/dL Normal 29.9-35.2 [facility] Comment on above: Performed By: #### C VDAGS #### [facility] [address] [address] [address] Ashlie Hills MCV (RBC) [Entitic vol] 92.1 fL Normal 81.0-99.0 [facility] Comment on above: Performed By: #### C VDAGS #### [facility] [address] [address] [address] Ashlie Hills PLT 123 103/ul Critically low 150-450 [facility] Comment on above: Performed By: #### C VDAGS #### [facility] [address] [address] [address] Ashlie Hills RBC 6.11 106/ul Critically high 4.20-5.40 [facility] Comment on above: Performed By: #### C VDAGS #### [facility] [address] [address] [address] Ashlie Hills WBC 16.4 103/ul Critically high 4.0-11.0 [facility] Comment on above: Performed By: #### C VDAGS #### [facility] [address] [address] [address] Ashlie Hills LIPID PROFILEon 03-03-2022 CHOL-HDL RATIO NORM SEE BELOW Normal [facility] Comment on above: Result Comment: 3.3 - 4.4 LOW RISK 4.4 - 7.1 AVERAGE RISK 7.1 - 11.0 MODERATE RISK >11.0 HIGH RISK Performed By: #### C VDAGS #### [facility] [address] [place] [address] Dr. Ashlie Hills Cholesterol [Mass/Vol] 159 mg/dL Normal <=200 Th [facility] Comment on above: Performed By: #### C VDAGS #### [facility] [address] [address] [address] Ashlie Hills Cholesterol in HDL [Mass/Vol] 40 mg/dL Normal 40-60 [facility] Comment on above: Performed By: #### C VDAGS #### [facility] [address] [address] [address] Ashlie Hills Cholesterol in LDL [Mass/Vol] 81.8 mg/dL Normal [facility] Comment on above: Performed By: #### C VDAGS #### [facility] [address] [address] [address] Ashlie Hills Cholesterol.total/Chol esterol in HDL [Mass ratio] 4.0 {ratio} Normal [facility] Comment on above: Performed By: #### C VDAGS #### [facility] [address] [address] [address] Ashlie Hills HDL NORMAL > or = 60 mg/dl - LOW CARDIOVASCULAR RISK <40 mg/dl - HIGH CARDIOVASCULAR RISK Normal [facility] Comment on above: Performed By: #### C VDAGS #### [facility] [address] [place] [address] Dr. Ashlie Hills LDL CALC NORMAL SEE BELOW Normal [facility] Comment on above: Result Comment: <100 mg/dl OPTIMAL 100 - 129 mg/dl NEAR OR ABOVE OPTIMAL 130 - 159 mg/dl BORDERLINE HIGH 160 - 189 mg/dl HIGH >190 mg/dl VERY HIGH Performed By: #### C VDAGS #### [facility] [address] [address] [address] Ashlie Hills Triglyceride [Mass/Vol] 186 mg/dL Critically high <=150 [facility] Comment on above: Performed By: #### C VDAGS #### [facility] [address] [address] [address] Ashlie Hills VLDL CALC 37.2 mg/dL Normal [facility] Comment on above: Performed By: #### C VDAGS #### [facility] [address] [address] [address] Ashlie Hills RENAL FUNCTION PANELon 03-03 Albumin [Mass/Vol] 3.1 g/dL Critically low 3.4-5.0 Th [facility] Comment on above: Performed By: #### C BC #### [facility] [address] [address] [address] Ashlie Hills Calcium [Mass/Vol] 9.2 mg/dL Normal 8.5-10.1 [facility] Comment on above: Performed By: #### C BC #### [facility] [address] [address] [address] Ashlie Hills Chloride [Moles/Vol] 102 mmol/L Normal 98-107 [facility] Comment on above: Performed By: #### C BC #### [facility] [address] [address] [address] Ashlie Hills CO2 [Moles/Vol] 31.9 mmol/L Normal 21.0-32.0 [facility] Comment on above: Performed By: #### C BC #### [facility] [address] [address] [address] Ashlie Hills Creatinine [Mass/Vol] 0.68 mg/dL Normal 0.55-1.02 [facility] Comment on above: Performed By: #### C BC #### [facility] [address] [place] [address] Dr. Ashlie Hills EGFR-AF NORTH KOREAN >60 Normal >=60 [facility] Comment on above: Performed By: #### C BC #### [facility] [address] [place] [address] Dr. Ashlie Hills EGFR-NON AF [place]OREAN >60 Normal >=60 [facility] Comment on above: Performed By: #### C BC #### [facility] [address] [place] [address] Dr. Ashlie Hills Glucose [Mass/Vol] 131 mg/dL Critically high 74-106 [facility] Comment on above: Performed By: #### C BC #### [facility] [address] [place] [address] Dr. Ashlie Hills Phosphate [Mass/Vol] 4.0 mg/dL Normal 2.6-4.7 [facility] Comment on above: Performed By: #### C BC #### [facility] [address] [place] [address] Dr. Ashlie Hills Potassium [Moles/Vol] 4.0 mmol/L Normal 3.5-5.1 [facility] Comment on above: Performed By: #### C BC #### [facility] [address] [place] [address] Dr. Ashlie Hills Sodium [Moles/Vol] 141 mmol/L Normal 136-145 [facility] Comment on above: Performed By: #### C BC #### [facility] [address] [place] [address] Dr. Ashlie Hills Urea nitrogen [Mass/Vol] 17.0 mg/dL Normal 7.0-18.0 [facility] Comment on above: Performed By: #### C BC #### [facility] [address] [place] [address] Dr. Ashlie Hills UA RANDOM W/MICROSCOPICon BACTERIA NONE SEEN Normal NONE SEEN [facility] Comment on above: Performed By: #### I NFLUAB #### [facility] [address] [place] [address] Dr. Ashlie Hills Bilirubin Ql (U) Negative Normal NEGATIVE [facility] Comment on above: Performed By: #### I NFLUAB #### [facility] [address] [place] [address] Dr. Ashlie Hills CAST NONE SEEN Normal NONE SEEN [facility] Comment on above: Performed By: #### I NFLUAB #### [facility] [address] [place] [address] Dr. Ashlie Hills Clarity (U) CLEAR Normal CLEAR [facility] Comment on above: Performed By: #### I NFLUAB #### [facility] [address] [place] [address] Dr. Ashlie Hills Color (U) YELLOW Normal YELLOW [facility] Comment on above: Performed By: #### I NFLUAB #### [facility] [address] [place] [address] Dr. Ashlie Hills Crystals LM Nom (Urine sed) NONE SEEN Normal NONE SEEN [facility] Comment on above: Performed By: #### I NFLUAB #### [facility] [address] [place] [address] Dr. Ashlie Hills Epithelial cells LM Ql (Urine sed) FEW Abnormal NONE SEEN /RARE [facility] Comment on above: Performed By: #### I NFLUAB #### [facility] [address] [address] [address] Ashlie Hills Glucose Ql (U) Negative Normal NEGATIVE [facility] Comment on above: Performed By: #### I NFLUAB #### [facility] [address] [address] [address] Ashlie Hills Hemoglobin Ql (U) Negative Normal NEGATIVE [facility] Comment on above: Performed By: #### I NFLUAB #### [facility] [address] [address] [address] Ashlie Hills Ketones Ql (U) Negative Normal NEGATIVE [facility] Comment on above: Performed By: #### I NFLUAB #### [facility] [address] [place] [address] Dr. Ashlie Hills LEUKOCYTES Negative Normal NEGATIVE [facility] Comment on above: Performed By: #### I NFLUAB #### [facility] [address] [place] [address] Dr. Ashlie Hills MUCOUS NONE SEEN Normal NONE SEEN [facility] Comment on above: Performed By: #### I NFLUAB #### [facility] [address] [address] [address] Ashlie Hills Nitrite Ql (U) Negative Normal NEGATIVE [facility] Comment on above: Performed By: #### I NFLUAB #### [facility] [address] [place] [address] Dr. Ashlie Hills pH (U) 5.5 [pH] Normal 5-9 [facility] Comment on above: Performed By: #### I NFLUAB #### [facility] [address] [place] [address] Dr. Ashlie Hills RBC 0-2 Normal 0-2 [facility] Comment on above: Performed By: #### I NFLUAB #### [facility] [address] [place] [address] Dr. Ashlie Hills SPEC GRAVITY >=1.030 Abnormal 1.005-<=1.025 [facility] Comment on above: Performed By: #### I NFLUAB #### [facility] [address] [address] [address] Ashlie Hills UA PROTEIN 100 mg/dl Abnormal NEGATIVE/ TRACE [facility] Comment on above: Performed By: #### I NFLUAB #### [facility] [address] [place] [address] Dr. Ashlie Hills Urobilinogen Qn (U) 0.2 {Little'U}/dL Normal 0.2 - 1. 0 [facility] Comment on above: Performed By: #### I NFLUAB #### [facility] [address] [address] [address] Ashlie Hills WBC NONE SEEN Normal NONE SEEN [facility] Comment on above: Performed By: #### I NFLUAB #### [facility] [address] [place] [address] Dr. Ashlie Hills URIC ACID SERUMon 03-03-2022 Urate [Mass/Vol] 5.0 mg/dL Normal 2.6-6.0 [facility] Comment on above: Performed By: #### I NFLUAB #### [facility] [address] [place] [address] Dr. Ashlie Hills URINE T PROTEIN CREAT RATIOo n 03-03-2022 Protein (U) [Mass/Vol] 77.9 mg/dL Critically high <=12.0 [facility] Comment on above: Performed By: #### C VDAGS #### [facility] [address] [place] [address] Dr. Ashlie Hills UR PROT CREAT RAT 0.[address] [facility] Comment on above: Performed By: #### C VDAGS #### [facility] [address] [place] [address] Dr. Ashlie Hills URINE CREAT 175.15 mg/dL Normal 20.00-300.00 [facility] Comment on above: Performed By: #### C VDAGS #### [facility] [address] [place] [address] Dr. Ashlie Hills CULTURE URINEon 12-25-2021 CULTURE URINE Culture Observations: GREATER THAN TWO ORGANISMS PRESENT, HEAVILY MIXED. PLEASE RESUBMIT CLEAN CATCH MID-STREAM URINE IF CLINICALLY INDICATED. Normal [facility] Comment on above: Performed By: #### I NFLUAB #### [facility] [address] [place] [address] Dr. Ashlie Hills CBC AUTO DIFFon 12-24-2021 BASO # 0.1 103/ul Normal 0.0-0.1 [facility] Comment on above: Performed By: #### C BC #### [facility] [address] [place] [address] Dr. Ashlie Hills Basophils/100 WBC (Bld) 0.5 % Normal 0.2-2.0 [facility] Comment on above: Performed By: #### C BC #### [facility] [address] [place] [address] Dr. Ashlie Hills EO # 0.4 103/ul Normal 0.0-0.7 [facility] Comment on above: Performed By: #### C BC #### [facility] [address] [place] [address] Dr. Ashlie Hills Eosinophils/100 WBC (Bld) 2.4 % Normal 0.9-7.0 [facility] Comment on above: Performed By: #### C BC #### [facility] [address] [place] [address] Dr. Ashlie Hills Erythrocyte distribution width (RBC) [Ratio] 14.1 % Normal 11.0-15.0 [facility] Comment on above: Performed By: #### C BC #### [facility] [address] [place] [address] Dr. Ashlie Hills Hematocrit (Bld) [Volume fraction] 55.9 % Critically high 36.0-48.0 [facility] Comment on above: Performed By: #### C BC #### [facility] [address] [place] [address] Dr. Ashlie Hills Hemoglobin (Bld) [Mass/Vol] 17.9 g/dL Critically high 12.0-16.0 [facility] Comment on above: Performed By: #### C BC #### [facility] [address] [place] [address] Dr. Ashlie Hills IG # 0.06 10e3/ul Critically high 0.00-0.03 [facility] Comment on above: Performed By: #### C BC #### [facility] [address] [place] [address] Dr. Ashlie Hills IG % 0.4 % Normal 0.0-0.5 [facility] Comment on above: Performed By: #### C BC #### [facility] [address] [place] [address] Dr. Ashlie Hills LYMPH # 5.8 103/ul Critically high 1.2-3.8 [facility] Comment on above: Performed By: #### C BC #### [facility] [address] [place] [address] Dr. Ashlie Hills Lymphocytes/100 WBC (Bld) 35.4 % Normal 20.5-60.0 [facility] Comment on above: Performed By: #### C BC #### [facility] [address] [place] [address] Dr. Ashlie Hills MANUAL DIFF REQ NO Normal [facility] Comment on above: Performed By: #### C BC #### [facility] [address] [place] [address] Dr. Ashlie Hills MCH (RBC) [Entitic mass] 29.4 pg Normal 26.7-34.0 [facility] Comment on above: Performed By: #### C BC #### [facility] [address] [place] [address] Dr. Ashlie Hills MCHC (RBC) [Mass/Vol] 32.0 g/dL Normal 29.9-35.2 [facility] Comment on above: Performed By: #### C BC #### [facility] [address] [place] [address] Dr. Ashlie Hills MCV (RBC) [Entitic vol] 91.8 fL Normal 81.0-99.0 [facility] Comment on above: Performed By: #### C BC #### [facility] [address] [place] [address] Dr. Ashlie Hills MONO # 0.8 103/ul Normal 0.3-0.8 [facility] Comment on above: Performed By: #### C BC #### [facility] [address] [place] [address] Dr. Ashlie Hills Monocytes/100 WBC (Bld) 4.8 % Normal 1.7-12.0 [facility] Comment on above: Performed By: #### C BC #### [facility] [address] [place] [address] Dr. Ashlie Hills NEUT # 9.3 103/ul Critically high 1.4-6.5 [facility] Comment on above: Performed By: #### C BC #### [facility] [address] [place] [address] Dr. Ashlie Hills Neutrophils/100 WBC (Bld) 56.5 % Normal 43.0-75.0 [facility] Comment on above: Performed By: #### C BC #### [facility] [address] [place] [address] Dr. Ashlie Hills Platelet mean volume (Bld) [Entitic vol] 12.9 fL Normal 9.5-13.5 [facility] Comment on above: Performed By: #### C BC #### [facility] [address] [place] [address] Dr. Ashlie Hills PLT 127 103/ul Critically low 150-450 [facility] Comment on above: Performed By: #### C BC #### [facility] [address] [place] [address] Dr. Ashlie Hills RBC 6.09 106/ul Critically high 4.20-5.40 [facility] Comment on above: Performed By: #### C BC #### [facility] [address] [place] [address] Dr. Ashlie Hills WBC 16.4 103/ul Critically high 4.0-11.0 [facility] Comment on above: Performed By: #### C BC #### [facility] [address] [place] [address] ABD/PELVIS WO CONon [...] Severe right hip degenerative change. Normal [facility] URINE PROFILEon 2 Bilirubin Ql (U) Negative Normal NEGATIVE [facility] Comment on above: Performed By: #### Tracey LYMAN UMICRO #### [facility] [address] [place] [address] Dr. Ashlie Hills Clarity (U) CLEAR Normal CLEAR [facility] Comment on above: Performed By: #### Tracey LYMAN UMICRO #### [facility] [address] [place] [address] Dr. Ashlie Hills Color (U) DK. ORANGE Abnormal YELLOW [facility] Comment on above: Performed By: #### Tracey LYMAN UMICRO #### [facility] [address] [place] [address] Dr. Ashlie HOBBS A micrscopic examination will be performed if indicated. Normal [facility] Comment on above: Performed By: #### Tracey LYMAN UMICRO #### [facility] [address] [place] [address] Dr. Ashlie Hills Glucose Ql (U) 250 mg/dl Abnormal NEGATIVE [facility] Comment on above: Performed By: #### Tracey LYMAN UMICRO #### [facility] [address] [place] [address] Dr. Ashlie Hills Hemoglobin Ql (U) Negative Normal NEGATIVE [facility] Comment on above: Performed By: #### Tracey LYMAN UMICRO #### [facility] [address] [address] [address] Ashlie Hills Ketones Ql (U) Negative Normal NEGATIVE [facility] Comment on above: Performed By: #### Tracey LYMAN UMICRO #### [facility] [address] [place] [address] Dr. Ashlie Hills LEUKOCYTES Negative Normal NEGATIVE [facility] Comment on above: Performed By: #### E RUR, UMICRO #### [facility] [address] [place] [address] Dr. Ashlie Hills Nitrite Ql (U) Negative Normal NEGATIVE [facility] Comment on above: Performed By: #### E NURA, UMICRO #### [facility] [address] [place] [address] Dr. Ashlie Hills pH (U) 5.0 [pH] Normal 5-9 [facility] Comment on above: Performed By: #### E NURA, UMICRO #### [facility] [address] [place] [address] Dr. Ashlie Hills Protein (U) [Mass/Vol] 100 mg/dL Abnormal NEGAT YURY/ TRACE [facility] Comment on above: Performed By: #### Tracey LYMAN, UMICRO #### [facility] [address] [place] [address] Dr. Ashlie Hills SPEC GRAVITY >=1.030 Abnormal 1.005-<=1.025 [facility] Comment on above: Performed By: #### Tracey LYMAN, UMICRO #### [facility] [address] [place] [address] Dr. Ashlie Hills UR MICRO IND INDICATED Normal [facility] Comment on above: Performed By: #### Tracey LYMAN, UMICRO #### [facility] [address] [place] [address] Dr. Ashlie Hills Urobilinogen Qn (U) 1.0 {Little'U}/dL Normal 0.2 - 1. 0 [facility] Comment on above: Performed By: #### Tracey LYMAN, UMICRO #### [facility] [address] [place] [address] Dr. Ashlie Hills PROF CHEM 8 (BAS METB)on Anion gap [Moles/Vol] 12.1 mmol/L Normal [facility] Comment on above: Performed By: #### I NFLUAB #### [facility] [address] [place] [address] Dr. Ashlie Hills Calcium [Mass/Vol] 9.0 mg/dL Normal 8.5-10.1 [facility] Comment on above: Performed By: #### I NFLUAB #### [facility] [address] [address] [address] Ashlie Hills Chloride [Moles/Vol] 101 mmol/L Normal 98-107 [facility] Comment on above: Performed By: #### I NFLUAB #### [facility] [address] [address] [address] Ashlie Hills CO2 [Moles/Vol] 29.1 mmol/L Normal 21.0-32.0 [facility] Comment on above: Performed By: #### I NFLUAB #### [facility] [address] [place] [address] Dr. Ashlie Hills Creatinine [Mass/Vol] 0.86 mg/dL Normal 0.55-1.02 [facility] Comment on above: Performed By: #### I NFLUAB #### [facility] [address] [address] [address] Ashlie Hills EGFR-AF NORTH [place]OREAN >60 Normal >=60 [facility] Comment on above: Performed By: #### I NFLUAB #### [facility] [address] [place] [address] Dr. Ashlie Hills EGFR-NON AF [place]OREAN >60 Normal >=60 [facility] Comment on above: Performed By: #### I NFLUAB #### [facility] [address] [address] [address] Ashlie Hills Glucose [Mass/Vol] 236 mg/dL Critically high 74-106 [facility] Comment on above: Performed By: #### I NFLUAB #### [facility] [address] [address] [address] Ashlie Hills Potassium [Moles/Vol] 4.2 mmol/L Normal 3.5-5.1 [facility] Comment on above: Performed By: #### I NFLUAB #### [facility] [address] [address] [address] Ashlie Hills Sodium [Moles/Vol] 138 mmol/L Normal 136-145 [facility] Comment on above: Performed By: #### I NFLUAB #### [facility] [address] [place] [address] Dr. Ashlie Hills Urea nitrogen [Mass/Vol] 11.0 mg/dL Normal 7.0-18.0 [facility] Comment on above: Performed By: #### I NFLUAB #### [facility] [address] [place] [address] Dr. Ashlie Hills Urea nitrogen/Creatinine [Mass ratio] 12.8 mg/mg Normal [facility] Comment on above: Performed By: #### I NFLUAB #### [facility] [address] [place] [address] Dr. Ashlie Hills URINE MICROSCOPIC ONLYon BACTERIA SMALL Abnormal NONE SEEN [facility] Comment on above: Performed By: #### E RUR, UMICRO #### [facility] [address] [place] [address] Dr. Ashlie Hills Bacteria identified Cx Nom (U) INDICATED Normal [facility] Comment on above: Performed By: #### E RUR, UMICRO #### [facility] [address] [place] [address] Dr. Ashlie Hills CAST NONE SEEN Normal NONE SEEN [facility] Comment on above: Performed By: #### E RUR, UMICRO #### [facility] [address] [place] [address] Dr. Ashlie Hills Crystals LM Nom (Urine sed) NONE SEEN Normal NONE SEEN [facility] Comment on above: Performed By: #### E RUR, UMICRO #### [facility] [address] [place] [address] Dr. Ashlie Hills Epithelial cells LM Ql (Urine sed) MODERATE Abnormal NONE SEEN /RARE [facility] Comment on above: Performed By: #### E RUR, UMICRO #### [facility] [address] [place] [address] Dr. Ashlie Hills MUCOUS NONE SEEN Normal NONE SEEN [facility] Comment on above: Performed By: #### E RUR, UMICRO #### [facility] [address] [address] [address] Ashlie Hills RBC 0-2 Normal 0-2 [facility] Comment on above: Performed By: #### E RUR UMICRO #### [facility] [address] [address] [address] Ashlie Hills WBC 0-2 Abnormal NONE SEEN [facility] Comment on above: Performed By: #### E RUR UMICRO #### [facility] [address] [address] [address] Ashlie Hills YEAST PRESENT Abnormal NONE SEEN [facility] Comment on above: Performed By: #### E NURA UMICRO #### [facility] [address] [address] [address] Ashlie Hills HIP RIGHT 1 OR 2 VWS WITH PE LVISon 07-20-2020 HIP RIGHT 1 OR 2 VWS WITH PELVIS [facility] Department of Radiology [address] [place] [id number] Patient Name: MITZI MACIAS : 1970 Sex: F Age: Race: White Pt. Location: Patient Status: O Ordered Date: 07/20/2020 1:45:00 PM Completed Date: 07/20/2020 01:57 PM Requesting Provider: LIZ EISENBERG Attending Provider: LIZ EISENBERG Report Copy To: MCKAYLA BLAS Signs & Symptoms: M25.551 Pain in right hip I10 History: [place] Comments: evaluate Exam: HIP RIGHT 1 OR [...] MRI. Electronically signed: Pipo Acevedo. Transcribed by: [email or web address], User Resident: Electronically Signed by: PIPO ACEVEDO @ 07/20/2020 03:45 PM Normal [facility] Comment on above: Order Comment: evalu ate [...] index (BMI) [Ratio] 58.64 kg/m2 Mckayla Aichholz CERTIFIED PROSTHETIST Work Phone: [facility] 01-26-2025 18:11-0400 Body temperature 98.49 [degF] Mckayla Aichholz CERTIFIED PROSTHETIST Work Phone: [facility] 01-26-2025 18:11-0400 Body weight 169.83 kg Mckayla Aichholz CERTIFIED PROSTHETIST Work Phone: [facility] 01-26-2025 18:11-0400 Diastolic blood pressure 82 mm[Hg] Mckayla Aichholz CERTIFIED PROSTHETIST Work Phone: [facility] 01-26-2025 18:11-0400 Heart rate 81 /min Mckayla Aichholz CERTIFIED PROSTHETIST Work Phone: [facility] 01-26-2025 18:11-0400 Respiratory rate 20 /min Mckayla Aichholz CERTIFIED PROSTHETIST Work Phone: [facility] 01-26-2025 18:11-0400 SaO2% (BldA) [Mass fraction] 90 % Mckayla Aichholz CERTIFIED PROSTHETIST Work Phone: [facility] 01-26-2025 18:11-0400 Systolic blood pressure 126 mm[Hg] Mckayla Aichholz CERTIFIED PROSTHETIST Work Phone: [facility] 12-09-2024 10:19-0400 Body temperature 98.01 [degF] Mckayla Aichholz CERTIFIED PROSTHETIST Work Phone: [facility] 12-09-2024 10:19-0400 Diastolic blood pressure 76 mm[Hg] Mckayla Aichholz CERTIFIED PROSTHETIST Work Phone: [facility] 12-09-2024 10:19-0400 Heart rate 71 /min Mckayla Aichholz CERTIFIED PROSTHETIST Work Phone: [facility] 12-09-2024 10:19-0400 Respiratory rate 20 /min Mckayla Aichholz CERTIFIED PROSTHETIST Work Phone: [facility] 12-09-2024 10:19-0400 SaO2% (BldA) [Mass fraction] 88 % Mckaylajuvenal Rosenbergz CERTIFIED PROSTHETIST Work Phone: [facility] 12-09-2024 10:19-0400 Systolic blood pressure 150 mm[Hg] Mckayla Juanjosehholz CERTIFIED PROSTHETIST Work Phone: [facility] 10-27-2024 14:11-0400 Body height 170.2 cm Mckayla Juanjosehholz CERTIFIED PROSTHETIST Work Phone: [facility] 10-27-2024 14:11-0400 Body mass index (BMI) [Ratio] 56.51 kg/m2 Mckayla Juanjosehholz CERTIFIED PROSTHETIST Work Phone: [facility] 10-27-2024 14:11-0400 Body temperature 98.71 [degF] Mckayla Juanjosehholz CERTIFIED PROSTHETIST Work Phone: [facility] 10-27-2024 14:11-0400 Body weight 163.66 kg Mckayla Juanjosehholz CERTIFIED PROSTHETIST Work Phone: [facility] 10-27-2024 14:11-0400 Diastolic blood pressure 74 mm[Hg] Mckayla Juanjosehholz CERTIFIED PROSTHETIST Work Phone: [facility] 10-27-2024 14:11-0400 Heart rate 75 /min Mckayla Aichholz CERTIFIED PROSTHETIST Work Phone: [facility] 10-27-2024 14:11-0400 Respiratory rate 18 /min Mckayla Juanjosehholz CERTIFIED PROSTHETIST Work Phone: [facility] 10-27-2024 14:11-0400 SaO2% (BldA) [Mass fraction] 90 % Mckayla Juanjosehholz CERTIFIED PROSTHETIST Work Phone: [facility] 10-27-2024 14:11-0400 Systolic blood pressure 132 mm[Hg] Mckayla Aichholz CERTIFIED PROSTHETIST Work Phone: [facility] 10-08-2024 11:21-0400 Body height 170.2 cm Rain Suoza MD Work Phone: [facility] 10-08-2024 11:21-0400 [...] index (BMI) [Ratio] 57.31 kg/m2 Mckayla Blas CERTIFIED PROSTHETIST Work Phone: [facility] 08-27-2024 17:44-0500 Body temperature 98.01 [degF] Mckayla Blas CERTIFIED PROSTHETIST Work Phone: [facility] 08-27-2024 17:44-0500 Body weight 165.97 kg Mckayla Blas CERTIFIED PROSTHETIST Work Phone: [facility] 08-27-2024 17:44-0500 Diastolic blood pressure 76 mm[Hg] Mckayla Blas CERTIFIED PROSTHETIST Work Phone: [facility] 08-27-2024 17:44-0500 Heart rate 83 /min Mckayla Blas CERTIFIED PROSTHETIST Work Phone: [facility] 08-27-2024 17:44-0500 Respiratory rate 18 /min Mckayla Patriciamariyatalia CERTIFIED PROSTHETIST Work Phone: [facility] 08-27-2024 17:44-0500 SaO2% (BldA) [Mass fraction] 91 % Mckayla Patriciajodie CERTIFIED PROSTHETIST Work Phone: [facility] 08-27-2024 17:44-0500 Systolic blood pressure 134 mm[Hg] Mckayla Patriciajodie CERTIFIED PROSTHETIST Work Phone: [facility] 06-11-2024 10:00-0500 Blood Pressure Location Elbert ARAUZ [facility] 06-11-2024 10:00-0500 Diastolic blood pressure 68 mm[Hg] Elbert ARAUZ [facility] 06-11-2024 10:00-0500 Heart rate 76 /min Elbert ARAUZ [facility] 06-11-2024 10:00-0500 Systolic blood pressure 132 mm[Hg] Elbert ARAUZ [facility] 05-27-2024 [...] 10:27-0400 Body height 165.1 cm Mckayla Aichholz CERTIFIED PROSTHETIST Work Phone: [facility] 04-14-2024 10:27-0400 Body mass index (BMI) [Ratio] 61.01 kg/m2 Mckayla Aichholz CERTIFIED PROSTHETIST Work Phone: [facility] 04-14-2024 10:27-0400 Body temperature 98.49 [degF] Mckayla Aichholz CERTIFIED PROSTHETIST Work Phone: [facility] 04-14-2024 10:27-0400 Body weight 166.29 kg Mckayla Aichholz CERTIFIED PROSTHETIST Work Phone: [facility] 04-14-2024 10:27-0400 Diastolic blood pressure 80 mm[Hg] Mckayla Aichholz CERTIFIED PROSTHETIST Work Phone: [facility] 04-14-2024 10:27-0400 Heart rate 77 /min Mckayla Aichholz CERTIFIED PROSTHETIST Work Phone: [facility] 04-14-2024 10:27-0400 Respiratory rate 19 /min Mckayla Aichholz CERTIFIED PROSTHETIST Work Phone: [facility] 04-14-2024 10:27-0400 SaO2% (BldA) [Mass fraction] 92 % Mckayla Aichholz CERTIFIED PROSTHETIST Work Phone: [facility] 04-14-2024 10:27-0400 Systolic blood pressure 116 mm[Hg] Mckayla Aichholz CERTIFIED PROSTHETIST Work Phone: [facility] 03-08-2022 15:00-0400 Body height 170.18 cm Stephanie Tico Other [id number] Other 03-08-2022 15:00-0400 Body temperature 97.6 [degF] Stephanie Tico Other [id number] Other 03-08-2022 15:00-0400 Diastolic blood pressure 72 mm[Hg] Stephanie Tico Other [id number] Other 03-08-2022 15:00-0400 Respiratory rate 20 /min Stephanie Tico Other [id number] Other 03-08-2022 15:00-0400 SaO2% (BldA) [Mass fraction] 91 % Stephanie Tico Other [id number] Other 03-08-2022 15:00-0400 Systolic blood pressure 131 mm[Hg] Stephanie Tico Other [id number] Other 02-20-2022 09:20-0400 Body height 170.18 cm Stephanie Tico Other [id number] Other 02-20-2022 09:20-0400 Body temperature 96.5 [degF] Stephanie Tico Other [id number] Other 02-20-2022 09:20-0400 Diastolic blood pressure 69 mm[Hg] Stephanie Tico Other [id number] Other 02-20-2022 09:20-0400 Respiratory rate 20 /min Stephanie Tico Other [id number] Other 02-20-2022 09:20-0400 SaO2% (BldA) [Mass fraction] 91 % Stephanie Tico Other [id number] Other 02-20-2022 09:20-0400 Systolic blood pressure 129 mm[Hg] Stephanie Tico Other [id number] Other 02-06-2022 10:24-0400 Blood Pressure Location Elbert Eventpig [facility] 02-06-2022 10:24-0400 Diastolic blood pressure 76 mm[Hg] Elbert ARAUZ [facility] 02-06-2022 10:24-0400 Heart rate 70 /min [facility] 02-06-2022 10:24-0400 Respiratory rate 16 /min El[facility]RAUZ [facility] 02-06-2022 10:24-0400 Systolic blood pressure 134 mm[Hg] Elbert ARAUZ [facility] Encounters Encounter Date Encounter Type Care Provider Facility Start: 04-17-2025 ambulatory Omero Nas Negrita use COLORIST-RN MED SURG Facility:[facility] Start: 03-24-2025 ambulatory Corinne Kellogg MD Facility:[facility] Start: 03-23-2025 End: 03-23-2025 ambulatory Omero Nas Bob COLORIST-RN MED SURG Facility:[facility] Start: 03-11-2025 End: 03-11-2025 ambulatory Flynn Urias DPM Facility:[facility] Start: 03-09-2025 End: 03-09-2025 Refill Mckayla Blas NP Work Phone: [facility] Comment on above: Tobacco user; Encounter for smoking cessation counseling Start: 01-29-2025 End: 01-29-2025 Bamboo flowsheet Rain Souza MD Work Phone: [facility] Start: 01-29-2025 End: 01-29-2025 Bamboo flowsheet Rain Souza MD Work Phone: [facility] Start: 01-29-2025 End: 01-29-2025 Clinisync Result [...] hyperglycemia, with long-term current use of insulin ([facility]); Vitamin D deficiency; Primary hypertension ; Insulin long-term use ([facility]); Hyperlipemia, mixed ; Microalbuminuria; Class 3 severe obesity due to excess calories with serious comorbidity and body mass index (BMI) of 50.0 to 59.9 in adult ([facility]) Start: 01-26-2025 End: 01-26-2025 ambulatory MCKAYLA BLAS Not Available Start: 01-26-2025 End: 01-26-2025 Patient encounter procedure Mckayla Blas NP Work Phone: [facility] Comment on above: Encounter for subseq [...] calories (CMS-HCC) Start: 01-06-2025 End: 01-06-2025 ambulatory [facility] Start: 12-18-2024 End: 12-19-2024 Refill Mckayla Blas CERTIFIED PROSTHETIST Work Phone: [facility] Comment on above: Hyperlipidemia, unsp ecified ; Tobacco user; Encounter for smoking cessation counseling Start: 12-09-2024 End: 12-09-2024 Bamboo flowsheet Mckayla Blas CERTIFIED PROSTHETIST Work Phone: [facility] Start: 12-09-2024 End: 12-09-2024 Bamboo flowsheet Mckayla Blas CERTIFIED PROSTHETIST Work Phone: [facility] Start: 12-09-2024 End: 12-09-2024 ambulatory MCKAYLA BLAS Not Available Start: 12-09-2024 End: 12-09-2024 Office outpatient visit 25 minutes Mckayla Blas CERTIFIED PROSTHETIST Work Phone: [facility] Comment on above: Cellulitis of left [...] Unsolicited Start: 10-27-2024 End: 10-27-2024 ambulatory MCKAYLA BLAS Not Available Start: 10-27-2024 End: 10-27-2024 Office outpatient visit 25 minutes Mckayla Blas NP Work Phone: [facility] Comment on above: Primary hypertension ([facility]/HCC) (Primary Dx); Diabetic polyneuropathy associated with type 2 diabetes mellitus ([facility]); Chronic diastolic heart failure ([facility]); Bilateral lower extremity edema; Morbid (severe) obesity due to excess calories ([facility]); Type 2 diabetes mellitus with complication, with long-term current use of insulin ([facility]); Anxiety and depression ([facility]); Cigarette nicotine dependence without complication; Encounter for screening mammogram for malignant neoplasm of breast; Insomnia; Non-seasonal allergic rhinitis, unspecified trigger; Type 2 diabetes mellitus with unspecified complications; Vitamin D deficiency, unspecified; Gastro-esophageal reflux disease without esophagitis; PAD (peripheral artery disease) ([facility]); Gastroesophageal reflux disease, unspecified whether esophagitis present; Venous ulcer of right leg ([facility]) Start: 10-21-2024 End: 10-21-2024 [facility]ill [facility] Comment on above: Chronic obstructive pulmonary disease, unspecified Start: 10-08-2024 End: 10-08-2024 Clinisync Result Encounter Mckayla Blas NP Work Phone: [facility] External Department Unsolicited Start: 10-08-2024 End: 10-08-2024 Clinisync Result Encounter Mckayla Blas CERTIFIED PROSTHETIST Work Phone: [facility] External Department Unsolicited Start: 10-08-2024 End: 10-08-2024 Office outpatient visit 25 minutes Rain Souza MD [facility]: [facility] Comment on above: Type 2 diabetes asiya itus with hyperglycemia, with long-term current use of insulin ([facility]) (Primary Dx); Encounter for dietary consultation; Vitamin D deficiency; Primary hypertension ([facility]); Insulin long-term use (CMS/HCC); Hyperlipemia, mixed (CMS/HCC); [...] Department Unsolicited Start: 08-08-2024 End: 08-08-2024 ambulatory [facility] Start: 07-17-2024 End: 07-17-2024 Refill Mckayla Blas CERTIFIED PROSTHETIST Work Phone: [facility] Start: 07-14-2024 End: 07-14-2024 Office outpatient visit 25 minutes Mckayla Blas CERTIFIED PROSTHETIST Work Phone: [facility] Comment on above: Primary hypertension [...] with long-term current use of insulin ([facility]); Tobacco user; Encounter for smoking cessation counseling; Kidney stone; Adrenal mass 1 cm to 4 cm in diameter ([facility]); Radiculopathy, lumbar region; Non-seasonal allergic rhinitis, unspecified trigger; Type 2 diabetes mellitus with unspecified complications ([facility]/HCC) Start: 07-14-2024 End: 07-14-2024 ambulatory MCKAYLA BLAS Not Available Start: 07-05-2024 End: 07-07-2024 Refill Mckayla Blas CERTIFIED PROSTHETIST Work Phone: [facility] Comment on above: Bilateral lower extr emity edema Start: 06-11-2024 ambulatory Elbert Maysi ty:SHEA Mckee Start: 06-11-2024 End: 06-11-2024 Patient encounter procedure Elbert ARUAZ [facility] Start: 05-27-2024 End: 05-27-2024 Bamboo flowsheet Rain Souza MD Work Phone: [facility] Start: 05-27-2024 End: 05-27-2024 Bamboo flowsheet Rain Souza MD Work Phone: [facility] Start: 05-27-2024 End: 05-27-2024 ambulatory AHMAD F LIBBY Not Available Start: 05-27-2024 End: 05-27-2024 Office [...] 04-14-2024 End: 04-14-2024 Bamboo flowsheet Mckayla Blas CERTIFIED PROSTHETIST Work Phone: [facility] Start: 04-14-2024 End: 04-14-2024 Bamboo flowsheet Mckayla Blas CERTIFIED PROSTHETIST Work Phone: [facility] Start: 04-14-2024 End: 04-14-2024 Office outpatient visit 25 minutes Mckayla Blas NP Work Phone: [facility] Comment on above: Primary hypertension (CMS/HCC) (Primary Dx); Insomnia; Type 2 diabetes mellitus with complication, with long-term current use of insulin ([facility]); Non-seasonal allergic rhinitis, unspecified trigger; [...] Start: 04-05-2024 End: 04-06-2024 Refill Mckayla Aichholz CERTIFIED PROSTHETIST Work Phone: [facility] Comment on above: Hyperlipidemia, unsp ecified (CMS/HCC); Bilateral lower extremity edema Vitamin D deficiency , unspecified Start: 01-17-2024 Patient encounter procedure Rain Souza MD Work Phone: [facility] Start: 08-17-2023 Refill Mckayla Aichholz CERTIFIED PROSTHETIST Work Phone: [facility] Comment on above: Vaginal yeast infect ion (Primary Dx) Start: 08-14-2023 Refill Mckayla Aichholz CERTIFIED PROSTHETIST Work Phone: [facility] Comment on above: Type 2 diabetes asiya itus with unspecified complications (CMS/HCC); Edema, unspecified; Edema Start: 12-05-2022 ambulatory MATEUSZ NICHOLEMIPATHY . Facility:[facility] Start: 12-05-2022 End: 12-06-2022 Evaluation and management of inpatient UMBERTO ALONDRA . Facility:[facility] Start: 11-23-2022 End: 11-23-2022 ambulatory RN MED SURG MCKAYLA JUANJOSECayetanoJODIE Facility:[facility] Start: 11-22-2022 End: 11-23-2022 ambulatory RN MED SURG MCKAYLA AICCayetanoJODIE Facility:[facility] Start: 11-17-2022 End: 11-18-2022 ambulatory SUBHASH GASPAR . Facility:[facility] Start: 11-15-2022 End: 11-15-2022 Patient encounter procedure SARAH VEGA [facility] Start: 10-05-2022 End: 10-05-2022 ambulatory MARIANO DIAB . Facility:[facility] Start: 09-21-2022 End: 09-21-2022 ambulatory RN MED SURG MCKAYLA AICCayetanoMARIYAZ Facility:[facility] Start: 09-14-2022 ambulatory RAFAEL Ribera y:[facility] Start: 08-24-2022 End: [address] CHAPARRO MORTENSEN . Facility:[facility] Start: 08-21-2022 End: 08-22-2022 ambulatory HATTIE Ramsey [facility] Facility:[facility] Start: 07-27-2022 End: 07-28-2022 ambulatory CECILIA NIRMALATray . Facility:[facility] Start: 07-18-2022 End: 07-19-2022 ambulatory CECILIA BJORNRUCHI . Facility:[facility] Start: 07-18-2022 End: 07-19-2022 ambulatory HATTIE Ramsey [facility] Facility:[facility] Start: 07-06-2022 End: 07-06-2022 ambulatory SAYDA BLAS Facility:[facility] Start: 05-11-2022 End: 05-12-2022 ambulatory GIL VALENZUELA . Facility:[facility] Start: 04-25-2022 End: 04-25-[address] CHAPARRO MORTENSEN . Facility:[facility] Start: 04-20-2022 End: 04-21-2022 ambulatory GIL VALENZUELA . Facility:[facility] Start: 03-08-2022 End: 03-08-2022 ambulatory Stephanie Tico Other [id number] Other Start: 03-08-2022 Office outpatient vi sit 15 minutes Stephanie Tico [facility] Start: 03-03-2022 End: 03-04-2022 ambulatory SAYDA BLAS Facility:[facility] Start: 02-20-2022 End: 02-20-2022 ambulatory Stephanie Tico Other [id number] Other Start: 02-20-2022 Office outpatient ne w 45 minutes Stephanie Tico [facility] Start: 02-06-2022 End: 02-06-2022 Patient encounter procedure Elbert ARAUZ [facility] Start: 01-19-2022 End: 01-20-2022 ambulatory GIL VALENZUELA . Facility:[facility] Start: 12-24-2021 End: 12-24-2021 ambulatory OLE RAMIREZ Facility: Start: 08-26-2020 End: 09-10-2020 Patient encounter procedure MARY TAVERAS Facility:[facility] Start: 10-30-2019 End: 10-30-2019 Emergency department patient visit JAMES BENAVIDEZ [facility] Start: 10-30-2019 End: 10-30-2019 Emergency department patient visit James Benavidez [facility] Emergency Department Start: 11-02-2016 Preoperative state Stephanie Tico Other [email or web address] Other Procedures Date Procedure Procedure Detail Performing [...] Rain Souza MD Work Phone: Start: 10-08-2024 [facility] UA (CLEAN/CATCH) MICROSCOPIC IF INDICATE Mckayla Blas CERTIFIED PROSTHETIST Work Phone: Start: 08-27-2024 ALL CBC WITH AUTO DIFF Generic External Data Provider Start: 05-27-2024 Gluc bld gluc mntr d ev cleared fda spec home use Rain Souza MD Work Phone: Start: 05-12-2024 [facility] CREATININE Generic External Data Provider Start: 12-14-2023 Mammography Rain urena MD Work Phone: Start: 11-22-2022 Mammography Mckayla clifford CERTIFIED PROSTHETIST Work Phone: Start: 10-08-2015 Microscopic observat ion [Identifier] in Cervix by Cyto stain Mckayla Blas NP Work Phone: H/O: hysterectomy Elbert LARA Laparoscopic cholecystectomy Elbert ARAUZ Operative procedure on foot Elbert ARAUZ Plan of Treatment Date Care Activity Detail Author Start: 02-01-2026 End: 02-01-2026 Patient encounter procedure [facility] Start: 01-26-2026 Medicare Annual Wellness (AWV) Medicare Annual Wellness (AWV) [facility] Start: 10-08-2025 Urine screening for protein Diabetes: Urine Protein Screening [facility] Start: 08-03-2025 Screening for malignant neoplasm of colon [facility] Start: 07-14-2025 Glaucoma screening Diabetes: R etinopathy Screening [facility] Start: 05-28-2025 End: 05-28-2025 Patient encounter procedure [facility] Start: 05-13-2025 Glaucoma screening Diabetes: R etinopathy Screening [facility] Start: 05-01-2025 Hemoglobin A1c measurement Diabetes: Hemoglobin A1C [facility] Start: 04-29-2025 End: 04-29-2025 Patient encounter procedure [facility] Start: 03-09-2025 Influenza vaccination N [facility] Start: 01-28-2025 End: 01-28-2025 Patient encounter procedure 01/28/2025 10:50 AM EDT Office Visit [facility] [address] [place] [address] Rain Souza MD [address] [place] [address] [facility] Start: 01-26-2025 End: 01-26-2025 Patient encounter procedure 01/26/2025 6:00 PM EDT Office Visit [facility] [address] [place] [phone] Mckayla Blas NP [address] [place] [phone] [facility] Start: 01-16-2025 Medicare Annual Wellness [...] procedure 10/27/2024 2:00 PM EDT Office Visit [facility] [address] [place] [phone] Mckayla Blas NP [address] [place] [phone] [facility] Start: 10-08-2024 End: 10-08-2024 Patient encounter procedure 10/08/2024 11:20 AM EDT Office Visit [facility] [address] [place] [address] Rain Souza MD [address] [place] [address] [facility] Start: 08-27-2024 End: 08-27-2024 Patient encounter procedure 08/27/2024 5:30 PM EST Office Visit [facility] [address] [place] [phone] Mckayla Blas NP [address] [place] [address] [facility] Start: 08-27-2024 End: 08-27-2025 25-hydroxyvitamin [...] with long-term current use of insulin ([facility]/HCC) Expected: 08/27/2024 (Approximate), Expires: 08/27/2025 [facility] [...] microscopic (clean catch) Lab Routine Primary hypertension ([facility]) Type 2 diabetes mellitus with complication, with long-term current use of insulin ([facility]) Tobacco user Gout, unspecified cause, unspecified chronicity, unspecified site Expected: 08/27/2024 (Approximate), Expires: 08/27/2025 [facility] Comment on above: Expected: 08/27/2024 (Approximate), Expires: 08/27/2025 Start: 08-26-2024 End: 08-26-2024 Patient encounter procedure 08/26/2024 10:30 AM EST Office Visit [facility] [address] [place] [address] Rain Souza MD [address] [place] [address] [facility] Start: 07-14-2024 End: 07-14-2024 Patient encounter procedure 07/14/2024 6:30 PM EST Office Visit [facility] [address] [place] [address] Mckayla Blas NP [address] [place] [address] [facility] Start: 07-14-2024 End: 07-14-2024 Patient encounter procedure 07/14/2024 10:10 AM EST Office Visit [facility] [address] [place] [address] Rain Souza MD [address] [place] [address] [facility] Start: 06-06-2024 Influenza vaccination Influenza Vacc ine (#1) [facility] Comment on above: Postponed from 03/09 (Patient Refused) Start: 05-27-2024 End: 05-27-2024 Patient encounter procedure 05/27/2024 9:50 AM EST Office Visit [facility] [address] [place] [address] Rain Souza MD [address] [place] [address] [facility] Start: 05-17-2024 Hemoglobin A1c measurement Diabetes: Hemoglobin A1C [facility] Start: 05-15-2024 End: 05-15-2024 Chart abstracting 05/15/2024 Abstract [facility] [address] [place] [address] Rain Souza MD [address] [place] [address] [facility] Start: 05-15-2024 End: 05-15-2024 Patient encounter procedure 05/15/2024 11:20 AM EST Office Visit [facility] [address] [place] [address] Rain Souza MD [address] [place] [address] [facility] Start: 04-17-2024 End: 04-17-2024 Patient encounter procedure 04/17/2024 3:40 PM EDT Office Visit [facility] [address] [place] [address] Mckayla Blas NP [address] [place] [address] [facility] Start: 04-14-2024 End: 04-14-2024 Patient encounter procedure 04/14/2024 11:00 AM EDT Office Visit [facility] [address] [place] [phone] Mckayla Blas, CERTIFIED PROSTHETIST [address] [place] [phone] Arrived [facility] Comment on above: Arrived Start: 03-09-2024 Influenza vaccination Influenza Vacc ine (#1) [facility] Start: 02-19-2024 Hemoglobin A1c measurement Diabetes: Hemoglobin A1C [facility] Start: 11-24-2023 Urine screening for protein Diabetes: Urine Protein Screening [facility] Start: 11-23-2023 Screening for malignant neoplasm of breast Mammogram [facility] Start: 10-15-2023 End: 10-15-2023 Patient encounter procedure 10/15/2023 4:30 PM EDT Office Visit [facility] [address] [place] [address] Mckayla Blas NP [address] [place] [address] [facility] Start: 08-09-2023 Hemoglobin A1c measurement Diabetes: Hemoglobin A1C [facility] Start: 05-27-2021 Glaucoma screening Diabetes: R etinopathy Screening [facility] Start: 03-09-2020 Influenza vaccination Flu vacc ine (Season Ended) [place], [place] Start: 10-07-2018 Screening for malignant neoplasm of cervix [facility] Start: 2010 Lipid panel Lipid screen [place], [place] Start: 2000 Screening for malignant neoplasm of cervix HPV/Cotest [facility] Start: 1991 Screening for malignant neoplasm of cervix Cervical cancer screen [place], [place] Start: 1989 DTaP/Tdap/Td vaccine (1 - Tdap) DTaP/Tdap/Td vaccine (1 - Tdap) [place], [place] Start: 1985 HIV screening HIV screen [place], [place] Start: 1970 Medicare Annual Wellness (AWV) Medicare Annual Wellness (AWV) [facility] Start: 1970 Screening for malignant [...] Work Phone: [facility] 07-19-2021 SARS-CoV-2 (COVID-19 ) mRNA BNT-162b2 vax Akermin [facility] 10-28-2020 SARS-CoV-2 (COVID-19 ) mRNA BNT-162b2 vax Akermin [facility] 10-08-2020 SARS-CoV-2 (COVID-19 ) mRNA BNT-162b2 vax [employer]erm[employer] [facility] 04-16-2017 influenza virus vacc ine, H5N1, A/ (national stockpile) Mckayla Blas CERTIFIED PROSTHETIST Work Phone: [facility] 04-16-2017 influenza virus vacc ine, unspecified formulation Rain Souza MD Work Phone: [facility] 04-16-2017 influenza, unspecifi ed formulation Elbert REGLA [facility] 04-16-2017 pneumococcal polysaccharide vaccine, 23 valent Rain Souza MD Work Phone: [facility] 05-10-2016 influenza virus vacc ine, H5N1, A/ (national stockpile) Mckayla Blas NP Work Phone: [facility] 05-10-2016 influenza virus vacc ine, unspecified formulation Rain Souza MD Work Phone: [facility] 05-10-2016 influenza, unspecifi ed formulation Elbert ARAUZ [facility] 05-02-2013 influenza virus vacc ine, whole virus Rain Souza MD Work Phone: [facility] 05-02-2013 influenza, injectabl e, quadrivalent, contains preservative Mckayla Wan CERTIFIED PROSTHETIST Work Phone: [facility] 05-02-2013 influenza, whole Elbert BARBARA ERS [facility] 01-29-1998 measles, mumps and rubella virus vaccine Rain Souza MD Work Phone: [facility] Payers Date Payer Category Payer Unknown [id number] 2023 Medicare (Managed Care) 1.2. [id number] 2023 Private Health Insurance [id number] 2023 Medicare [id number] 2018 Medicaid MEDICAID [facility] [id number] 2018-Present [phone] [address] [place] [address] Medicaid [id number] 2013 Medicare [id number] 1970 Unknown [id number] 2.16.840.1.215803.3.579.2.6 47 1970 Unknown [id number] 2.16.840.1.234259.3.579.2.5 93 1970 Unknown [id number] 2.16.840.1.036546.3.579.2.5 93 1970 Unknown [id number] 2.16.840.1.014897.3.579.2.5 93 1970 Unknown [id number] 2.16.840.1.397295.3.579.2.5 93 1970 Unknown [id number] 2.16.840.1.768309.3.579.2.5 93 1970 Unknown [id number] 2.16.840.1.220165.3.579.2.5 93 1970 Unknown [id number] 2.16.840.1.402689.3.579.2.5 93 1970 Unknown [id number] 2.16.840.1.828977.3.579.2.5 93 1970 Unknown [id number] 2.16.840.1.410817.3.579.2.5 93 1970 Unknown [id number] 2.16.840.1.108818.3.579.2.5 93 1970 Unknown [id number] 2.16.840.1.441085.3.579.2.5 93 1970 Unknown [id number] 2.16.840.1.877412.3.579.2.5 93 1970 Unknown [id number] 2.16.840.1.583704.3.579.2.5 93 1970 Unknown [id number] 2.16.840.1.826896.3.579.2.5 93 1970 Unknown [id number] 2.16.840.1.660473.3.579.2.5 93 1970 Unknown [id number] 2.16.840.1.346051.3.579.2.5 93 1970 Unknown [id number] 2.16.840.1.289654.3.579.2.5 93 1970 Unknown [id number] 2.16.840.1.172487.3.579.2.5 93 1970 Unknown [id number] 2.16.840.1.062177.3.579.2.5 93 1970 Unknown [id number] 2.16.840.1.405478.3.579.2.5 93 1970 Unknown [id number] 2.16.840.1.479138.3.579.2.5 93 1970 Unknown [id number] 2.16.840.1.717654.3.579.2.5 93 1970 Unknown [id number] 2.16.840.1.450414.3.579.2.7 27 1970 Unknown [id number] 2.16.840.1.682074.3.579.2.7 27 1970 Unknown [id number] 2.16.840.1.246674.3.579.2.1 259 1970 Unknown [id number] 2.16.840.1.023000.3.579.2.1 259 1970 Unknown [id number] 2.16.840.1.678937.3.579.2.1 259 1970 Unknown [id number] 2.16.840.1.355065.3.579.2.1 259 1970 Unknown [id number] 2.16.840.1.087890.3.579.2.1 259 1970 Unknown [id number] 2.16.840.1.199196.3.579.2.1 259 1970 Unknown [id number] 2.16.840.1.187484.3.579.2.1 259 1970 Unknown [id number] 2.16.840.1.412377.3.579.2.1 259 1970 Unknown [id number] 2.16.840.1.413756.3.579.2.1 259 1970 Unknown [id number] 2.16.840.1.423349.3.579.2.1 96 1970 Unknown [id number] 2.16.840.1.194726.3.579.2.1 96 1970 Unknown [id number] 2.16.840.1.266979.3.579.2.1 96 1970 Unknown [id number] 2.16.840.1.050697.3.579.2.1 96 1970 Unknown [id number] 2.16.840.1.449954.3.579.2.1 96 1970 Unknown [id number] 2.16.840.1.816696.3.579.2.1 96 1959 Medicaid [id number] 1959 Private Health Insurance [id number] 1959 Unknown [id number] 2.16.840.1.425930.19 Social History Date Type Detail Facility Start: 02-17-2014 End: 01-29-2025 Tobacco smoking status NHIS Current every day smoker [place] Start: 02-17-1994 History of tobacco use Cigarette Smo ker [place] Start: 02-17-2014 End: 08-26-2024 Cigarettes smoked current (pack per day) - Reported [place] Start: 02-17-2014 Alcohol intake Current drinke r of alcohol (finding) [place] Start: 02-17-2014 Alcohol Comment Rare [place], [place] Start: 1970 Sex Assigned At Not on file [place] Exposure to SARS-CoV -2 (event) Unable to assess [place] Start: 02-06-2022 Tobacco smoking status Smoker (findi ng) [facility] Start: 07-10-2023 End: 08-26-2024 Sex Assigned At Female [facility] Start: 11-15-2022 End: 06-11-2024 Tobacco smoking status Heavy tobacco smoker (finding) [facility] Start: 07-10-2023 End: 01-29-2025 Tobacco [...] Equipment Origin al Text Equipment Identifier Dates [id number] Start: 01-18-2024 USE TO TEST BLOO D SUGAR 4 TIMES DAILY [id number] Start: 07-07-2024 Functional Status Date Assessment Result [...] 06-11-2024 Functional Status N/A [facility] 11-15-2022 Functional Status N/A [facility] 02-06-2022 Functional Status N/A [facility] Clinical Notes 01-19-2022 to 02-04-2025 Rain Souza MD - 01/29/2025 9:40 AM Savannah Blas NP - 01/26/2025 6:46 PM Savannah Blas NP - 01/26/2025 6:46 PM EDMicheal Sowcayetanomariyatalia, CERTIFIED PROSTHETIST - 01/26/2025 6:46 PM EDTPatient Instructions Note Date & Type Note Facility 02-04-2025 Note Please let her know her ECHO showed some improvement in the left side wall thickness, it was severely enlarged, now it is moderate. Important for good BP control to continue to improve this. Everything else looks good. Follow-up as planned in 6 months. Thanks! [facility] 01-29-2025 History of Present illness Narrative Images [...] 10 mg weekly, farxia 5 mg daily. 11/2023 follow up visit on 11/19/2023 , [...] 25 mg, Oral, 2 times daily HYDROcodone-acetaminophen (Orono) 5-325 MG tablet 1 tablet, 3 times [...] 09/17/2023 Angiomyolipoma Anxiety and depression 07/10/2023 Asthma ([facility]) 07/10/2023 Body mass index (BMI) 50.0-59.9, adult ([facility]) Cellulitis of left lower extremity Cervical cancer ([facility]) 09/17/2023 Chronic pain of both knees 09/17/2023 COPD (chronic obstructive pulmonary disease) ([facility]) 07/10/2023 COPD exacerbation ([facility]) 09/17/2023 Decreased functional mobility 09/17/2023 Diabetic neuropathy ([facility]) 07/10/2023 Dietary counseling and surveillance Edema 07/10/2023 Elevated sed rate Elevated WBC count Essential (primary) hypertension GERD (gastroesophageal reflux disease) 09/17/2023 Hyperlipidemia 09/17/2023 Hypertension 07/10/2023 Insomnia 09/17/2023 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 ([facility]) Lower extremity edema 09/17/2023 Mixed hyperlipidemia Morbid (severe) obesity due to excess calories ([facility]) Obstructive sleep apnea 07/10/2023 PAD (peripheral artery disease) 09/17/2023 Pancreatitis ([facility]) 09/17/2023 Pneumonia 09/17/2023 Proteinuria, unspecified Pulmonary hypertension ([facility]) 09/17/2023 Radiculopathy, lumbar region 09/17/2023 Tobacco user 09/17/2023 Type 2 diabetes mellitus with complication, with long-term current use of insulin ([facility]) 07/10/2023 Unilateral primary osteoarthritis, right [...] hyperglycemia, with long-term current use of insulin ([facility]) - POCT glycosylated hemoglobin (Hb A1C) docked [...] of 50.0 to 59.9 in adult ([facility]) Diet and exercise reviewed with the patient Follow up in about 4 months (around 06/01/2025). documented in this encounter [facility] 01-26-2025 History of Present illness Narrative Associated Problem(s): Anxiety and depression Current meds: elavil, duloxtine, Associated Problem(s): Morbid (severe) obesity due to excess calories ([facility]) Discussed with patient their BMI (actual, [...] Asthma (HCC) Current meds: albuterol, duoneb, Has animal husbandman 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 Associated Problem(s): COPD (chronic [...] 25 mg, Oral, 2 times daily HYDROcodone-acetaminophen (Orono) 5-325 MG tablet 1 tablet, 3 times [...] 09/17/2023 Angiomyolipoma Anxiety and depression 07/10/2023 Asthma ([facility]) 07/10/2023 Body mass index (BMI) 50.0-59.9, adult ([facility]) Cellulitis of left lower extremity Cervical cancer ([facility]) 09/17/2023 Chronic pain of both knees 09/17/2023 COPD (chronic obstructive pulmonary disease) ([facility]) 07/10/2023 COPD exacerbation ([facility]) 09/17/2023 Decreased functional mobility 09/17/2023 Diabetic neuropathy ([facility]) 07/10/2023 Dietary counseling and surveillance Edema 07/10/2023 Elevated sed rate Elevated WBC count Essential (primary) hypertension GERD (gastroesophageal reflux disease) 09/17/2023 Hyperlipidemia 09/17/2023 Hypertension 07/10/2023 Insomnia 09/17/2023 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 ([facility]) Lower extremity edema 09/17/2023 Mixed hyperlipidemia Morbid (severe) obesity due to excess calories ([facility]) Obstructive sleep apnea 07/10/2023 PAD (peripheral artery disease) 09/17/2023 Pancreatitis ([facility]) 09/17/2023 Pneumonia 09/17/2023 Proteinuria, unspecified Pulmonary hypertension ([facility]) 09/17/2023 Radiculopathy, lumbar region 09/17/2023 Tobacco user 09/17/2023 Type 2 diabetes mellitus with complication, with long-term current use of insulin ([facility]) 07/10/2023 Unilateral primary osteoarthritis, right [...] This Visit Diabetic neuropathy (HCC) Continue with lyrica, pain mgmt is prescribing OARRS reviewed Fu in 3 months Goal: tighter glucose control, this has been improving, latest A1c is 7.4%!!! COPD (chronic obstructive pulmonary disease) ([facility]) Follows with verena Needs smoking cessation Current meds: duoneb, albuterol, daliresp, Asthma ([facility]) Current meds: albuterol, duoneb, Has animal husbandman 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 Hypertension Please check blood pressure daily and record DASH diet Limit caffeine Take medication as directed Contact office if chest pain, pressure, dizziness, shortness of breath, swelling legs Recommend slow position changes Current meds: hydralazine, lisinopril, Relevant Medications hydrALAZINE (Apresoline) 25 MG tablet lisinopril 20 MG tablet Type 2 diabetes mellitus with complication, with long-term current use of insulin ([facility]) Check blood sugars daily, notify [...] amitriptyline (Elavil) 25 MG tablet Pulmonary hypertension ([facility]) Has seen [facility] Cardiology Hyperlipidemia On statin therapy Check labs [...] (severe) obesity due to excess calories ([facility]) Discussed with patient their BMI (actual, [...] Problem(s): Pulmonary hypertension (HCC) Has seen [facility] Cardiology Associated Problem(s): Hypertension Please check blood [...] 01/26/2025 6:00 PM EDT Please call the [facility] to schedule your mammogram: [phone]- ext [phone] documented in this encounter [facility] 01-06-2025 Note Cardiovascular Medic ine [facility] SUBJECTIVE Chief Complaint Patient presents with Congestive Heart Failure Hypertension Hyperlipidemia Mitzi Macias is a 54 y.o. female here for follow-up. PMHx: HFpEF, HTN, HLD, DM, longstanding heavy smoker, COPD, DANIEL, morbid obesity HPI 01/06/2025 Since last seen she was admitted to [facility] for AMS on 12/05/2024. She was [...] Bilateral lower extremity edema BMI 50.0-59.9, adult ([facility]) Candidiasis of breast Cardiomegaly Cervical cancer (CMS/HCC) [...] with long-term current use of insulin ([facility]) Unilateral primary osteoarthritis, right hip Vaginal yeast infection Venous insufficiency Bad odor of urine Critical limb ischemia of right lower extremity ([facility]) Hyperpigmentation of skin 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 2 diabetes mellitus ([facility]) Myelolipoma of adrenal gland Venous ulcer of right leg ([facility]) Chronic diastolic heart failure ([facility]) Antibiotic-induced yeast infection Cellulitis of left lower extremity Cigarette nicotine dependence without complication Fever 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 ([facility]) 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 [facility] 01-06-2025 Note Patient is here toda y [...] leg swelling. [facility] 12-09-2024 History of Present illness Narrative Associated [...] bad light. She was ultimately taken to [facility] ER, no tox screen was done [...] 25 mg, Oral, 2 times daily HYDROcodone-acetaminophen (Orono) 5-325 MG tablet 1 tablet, 3 times [...] ([facility]) 07/10/2023 Asthma 07/10/2023 Body mass [...] [facility] 07/10/2023 Insomnia 09/17/2023 M[facility] (current) use of insulin ([facility] [...] Problem List Items Addressed This Visit Hypertension ([facility]) Please check blood pressure daily and record DASH diet Limit caffeine Take medication as directed Contact office if chest pain, pressure, dizziness, shortness of breath, swelling legs Recommend slow position changes Current meds: hydralazine, lisinopril, Type 2 diabetes mellitus with complication, with long-term current use of insulin ([facility]) Check blood sugars daily, notify [...] is not wearing this today Pulmonary hypertension ([facility]) Has seen [facility] Cardiology Morbid (severe) obesity due to excess calories ([facility]) Discussed with patient their BMI [...] Problem(s): Pulmonary hypertension (CMS/HCC) Has seen [facility] Cardiology Associated Problem(s): Hypertension (CMS/HCC) Please check [...] 25 mg, Oral, 2 times daily HYDROcodone-acetaminophen (Orono) 5-325 MG tablet 1 tablet, 3 times [...] ([facility]) 07/10/2023 Asthma 07/10/2023 Body mass [...] [facility] 07/10/2023 Insomnia 09/17/2023 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 ([facility]) Lower extremity edema 09/17/2023 Mixed hyperlipidemia ([facility]) Morbid (severe) obesity due to excess calories ([facility]) Obstructive sleep apnea 07/10/2023 PAD (peripheral artery disease) ([facility]) 09/17/2023 Pancreatitis 09/17/2023 Pneumonia 09/17/2023 Proteinuria, unspecified Pulmonary hypertension ([facility]) 09/17/2023 Radiculopathy, lumbar region 09/17/2023 Tobacco user 09/17/2023 Type 2 diabetes mellitus with complication, with long-term current use of insulin ([facility]) 07/10/2023 Unilateral primary osteoarthritis, right [...] List Items Addressed This Visit Diabetic neuropathy ([facility]) - Primary Continue with cintia hudson mgmt is prescribing OARRS reviewed Fu in 3 months Goal: tighter glucose control, this has been improving, latest A1c is 7.4%!!! Hypertension ([facility]) Please check blood pressure daily and record DASH diet Limit caffeine Take medication as directed Contact office if chest pain, pressure, dizziness, shortness of breath, swelling legs Recommend slow position changes Current meds: hydralazine, lisinopril, Relevant Medications hydrALAZINE (Apresoline) 25 MG tablet lisinopril 20 MG tablet Type 2 diabetes mellitus with complication, with long-term current use of insulin ([facility]) Check blood sugars daily, notify [...] 81 MG chewable tablet Anxiety and depression ([facility]) Current meds: elavil, duloxtine, Relevant Medications DULoxetine (Cymbalta) [address] capsule Bilateral lower extremity edema Limit sodium , elevate legs, furosemide Relevant Medications furosemide (Lasix) 20 MG tablet potassium chloride ER (Micro-K) 10 MEQ ER capsule furosemide (Lasix) 40 MG tablet Insomnia Relevant Medications amitriptyline (Elavil) 25 MG tablet PAD (peripheral artery disease) ([facility]) Asa, statin Quit smoking BP [...] Relevant Medications ergocalciferol (Vitamin D2) 1.25 MG (50453 UT) capsule Gastro-esophageal reflux disease without esophagitis [...] complication, with long-term current use of insulin ([facility]) Check blood sugars daily, notify [...] duoneb, albuterol, daliresp, Associated Problem(s): Diabetic neuropathy (CMS/[facility]) Continue with cintia hudson is prescribing OARRS reviewed Fu in 3 months Goal: tighter glucose control, this has been improving, latest A1c is 7.4%!!! documented in this encounter [facility] 10-27-2024 Instructions Mckayla Blas NP - 10/27/2024 2:00 PM EDT No dose changes in meds You will be due for mammogram I will send order to [facility], they should call you to schedule If no call, please call [phone] documented in this [facility] [...] or chew. ergocalciferol (Vitamin D2) 1.25 MG (09923 UT) capsule TAKE 1 CAPSULE BY MOUTH [...] 25 mg, Oral, 2 times daily HYDROcodone-acetaminophen (Orono) 5-325 MG tablet 1 tablet, 3 times [...] [facility] 07/10/2023 Insomnia 09/17/2023 [facility] (current) use of insulin ([facility] [...] or chew. ergocalciferol (Vitamin D2) 1.25 MG (57499 UT) capsule TAKE 1 CAPSULE BY MOUTH [...] 25 mg, Oral, 2 times daily HYDROcodone-acetaminophen (Orono) 5-325 MG tablet 1 tablet, 3 times [...] Albuminuria 09/17/2023 Angiomyolipoma Anxiety and depression ([facility]) 07/10/2023 Asthma ([facility]) 07/10/2023 Body mass index (BMI) 50.0-59.9, adult ([facility]) Cellulitis of left lower extremity Cervical cancer ([facility]) 09/17/2023 Chronic pain of both knees 09/17/2023 COPD (chronic obstructive pulmonary disease) ([facility]) 07/10/2023 COPD exacerbation ([facility]) 09/17/2023 Decreased functional mobility 09/17/2023 Diabetic neuropathy ([facility]) 07/10/2023 Dietary counseling and surveillance Edema 07/10/2023 Elevated sed rate Elevated WBC count Essential (primary) hypertension ([facility]) GERD (gastroesophageal reflux disease) 09/17/2023 Hyperlipidemia ([facility]) 09/17/2023 Hypertension ([facility]) 07/10/2023 Insomnia 09/17/2023 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 ([facility]) Lower extremity edema 09/17/2023 Mixed hyperlipidemia ([facility]) Morbid (severe) obesity due to excess calories ([facility]) Obstructive sleep apnea 07/10/2023 PAD (peripheral artery disease) ([facility]) 09/17/2023 Pancreatitis 09/17/2023 Pneumonia 09/17/2023 Proteinuria, unspecified Pulmonary hypertension ([facility]) 09/17/2023 Radiculopathy, lumbar region 09/17/2023 [...] List Items Addressed This Visit Diabetic neuropathy (CMS/[facility]) Continue with cintia hudson mgmt is prescribing OARRS reviewed Fu in 3 months Goal: tighter glucose control Hypertension ([facility]) Please check blood pressure daily and record [...] with long-term current use of insulin ([facility]) Check blood sugars daily, notify [...] of the risks of continued smoking: stroke, MA, all forms of cancer, lung disease, and [...] of the risks of continued smoking: stroke, MA, all forms of cancer, lung disease, and [...] with long-term current use of insulin ([facility]) Check blood sugars daily, notify [...] (severe) obesity due to excess calories ([facility]) Discussed with patient their BMI [...] Problem(s): Malignant neoplasm of cervix uteri, unspecified ([facility]) Had in the past, had hysterectomy Associated [...] Asthma (CMS/HCC) Current meds: albuterol, duoneb, Has animal husbandman 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 Associated Problem(s): Obstructive sleep [...] in this encounter [facility] 08-08-2024 Note [place] [facility] Subjective Mitzi Macias is [...] Other chronic pain PAD (peripheral artery disease) ([facility]) Pneumonia Encounter for screening mammogram for malignant neoplasm of breast Pulmonary hypertension ([facility]) Radiculopathy, lumbar region Current smoker Type 2 diabetes mellitus with complication, with long-term current use of insulin ([facility]) Unilateral primary osteoarthritis, right hip Vaginal yeast infection Venous insufficiency Bad odor of urine Critical limb ischemia of right lower extremity ([facility]) Hyperpigmentation of skin 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 2 diabetes mellitus ([facility]) Myelolipoma of adrenal gland Venous ulcer of right leg ([facility]) HPI Patient was has history [...] Diagnosis Date COPD (chronic obstructive pulmonary disease) ([facility]) Diabetes mellitus ([facility]) Hyperlipidemia Hypertension Sleep apnea Past [...] , Rfl: ergocalciferol (Vitamin D-2) 1.25 MG (17231 Units) capsule, Take 1.25 mg by mouth., [...] and at bedtime., Disp: , Rfl: HYDROcodone-acetaminophen (Orono) 5-325 mg tablet, TAKE 1 TABLET BY [...] not included)... [facility] 07-14-2024 History of Present illness Narrative Associated [...] or chew. 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 ([facility]) Lower extremity edema 09/17/2023 Mixed hyperlipidemia ([facility]) Morbid (severe) obesity due to excess calories ([facility]) Obstructive sleep apnea 07/10/2023 PAD (peripheral artery disease) ([facility]) 09/17/2023 Pancreatitis 09/17/2023 Pneumonia 09/17/2023 Proteinuria, unspecified Pulmonary hypertension ([facility]) 09/17/2023 Radiculopathy, lumbar region 09/17/2023 Tobacco user 09/17/2023 Type 2 diabetes mellitus with complication, with long-term current use of insulin ([facility]) 07/10/2023 Unilateral primary osteoarthritis, right [...] List Items Addressed This Visit Diabetic neuropathy ([facility]) Continue with tristan EAST reviewed Fu in 3 months COPD (chronic obstructive pulmonary disease) ([facility]) Stable at this time, no changes in meds Encouraged smoking cessation Cont with dr Yañez Hypertension ([facility]) - Primary Please check blood pressure daily and record DASH diet Limit caffeine Take medication as directed Contact office if chest pain, pressure, dizziness, shortness of breath, swelling legs Recommend slow position changes Current meds: hydralazine, lisinopril, Type 2 diabetes mellitus with complication, with long-term current use of insulin ([facility]) Check blood sugars daily, notify [...] take over prescribing PAD (peripheral artery disease) ([facility]) Asa, statin Quit smoking BP [...] of the risks of continued smoking: stroke, MA, all forms of cancer, lung disease, and [...] cm to 4 cm in diameter ([facility]/HCC) Continue with Urology Kidney stone Continue with Urology Non-seasonal allergic rhinitis Relevant Medications cetirizine (ZyrTEC) 10 MG tablet Critical limb ischemia of right lower extremity ([facility]/HCC) Saw vascular, does have narrowing in arteries in legs, and thus the wounds not healing At this point they strongly urge to quit smoking or risk limb amputation Cont asa and statin Also good blood pressure and sugar control Venous ulcer of right leg ([facility]) Encounter for smoking cessation counseling Relevant Medications nicotine (Nicoderm, Step 1) 21 MG/24HR patch Other Visit Diagnoses Type 2 diabetes mellitus with unspecified complications ([facility]) Quitting smokinppd, chantix not helped, ] Face time with pt, spent 15 minutes with pt Associated Problem(s): Tobacco user The patient has been advised of the risks of continued smoking: stroke, MA, all forms of cancer, lung disease, and [...] complication, with long-term current use of insulin ([facility]) Check blood sugars daily, notify [...] require a prescription. You can also purchase hvzo-dqu-tlaonpw medicines. Medicines may have nicotine in them [...] and encouragement. Call telephone quitlines, such as 1-966-GXKK-NOW, reach out to support groups, or work [...] provider. Document Revised: 06/16/2022 Document Reviewed: 06/16/2022 [employer] Patient Education 2023 [employer]andhalf. 06/11/2024 10:39:22 Dietary Guidelines to Help Prevent [...] include: ?8 oz (237 mL) of milk, atfffcs-jpdsrodjomit-okptl milk, and calcium-fortifiedfruit juice. Calcium-fortified means that [...] ?Spinach (cooked), rhubarb, beets, sweet potatoes, and Bangladeshi chard. ?Peanuts. ?Potato chips, trinidadian fries, and baked potatoes with skin on. ?Nuts and nut products. ?Chocolate. If you regularly take a diuretic medicine, make sure to eat at least 1 or 2 servings of fruits or vegetables that are high in potassium each day. These include: ?Avocado. ?Banana. ?[place], prune, carrot, or tomato juice. ?Baked potato. [...] magnesium, fish oil, or vitamin B6. Take vwlm-pxd-oxjhdfj and prescription medicines only as told by [...] Casseroles. Pizza. Lasagna. Frozen meals. Potato chips. Peruvian fries. The items listed above may not [...] provider. Document Revised: 10/05/2022 Document Reviewed: 10/05/2022 [employer] Patient Education 2023 Fourandhalf. Follow Up Care 05/06/2024 08:24:56 With:REGLA PHIPPS, Elbert Joya, URL Address: [facility] [address], [place] [address]- When: Unknown [facility] [place] 05-27-2024 History of Present illness Narrative Mitzi [...] be covered), farxia 5 mg by PCP. 05/2023 follow up visit on 05/21/2023 , [...] or chew. ergocalciferol (Vitamin D2) 1.25 MG (04259 UT) capsule TAKE 1 CAPSULE BY MOUTH ONE TIME PER WEEK furosemide (LASIX) 20 mg, Oral, Daily PRN, Take in the afternoon as needed furosemide (LASIX) 40 mg, Oral, Daily Glucose Blood (ACCU-CHEK JAQUI PLUS ) 4 times daily hydrALAZINE (APRESOLINE) 25 mg, Oral, 2 times daily HYDROcodone-acetaminophen (Orono) 5-325 MG tablet 1 tablet, 3 times [...] [facility]) 07/10/2023 Insomnia 09/17/2023 [facility] (current) use of insulin ([facility] [...] with long-term current use of insulin ([facility]) - POCT glucose manually resulted - POCT glycosylated hemoglobin (Hb A1C) docked device We will continue with Lantus 58, lispro 02/16/12 according to meal size, Mounjaro 15 mg once weekly, Farxiga 5 mg once a day Encounter for dietary consultation Vitamin D deficiency Primary hypertension ([facility]) To follow with her PCP Insulin long-term use ([facility]) Hyperlipemia, mixed ([facility]) Continue with Zocor 10 mg once daily Microalbuminuria Class 3 severe obesity due to excess calories with serious comorbidity and body mass index (BMI) of 50.0 to 59.9 in adult ([facility]) Diet and exercise reviewed with the patient Follow up in about 3 months (around 08/27/2024). documented in this encounter [facility] 04-14-2024 History of Present illness Narrative Associated [...] insulin injections and oral agent (dual therapy) (marniunsola). She never participates in exercise. Her overall blood glucose range is 130-140 mg/dl. An TILA inhibitor/angiotensin II receptor eun is being taken. 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 Hypertension This is [...] or chew. ergocalciferol (Vitamin D2) 1.25 MG (53576 UT) capsule TAKE 1 CAPSULE BY MOUTH ONE TIME PER WEEK furosemide (LASIX) 20 mg, Oral, Daily PRN, Take in the afternoon as needed furosemide (LASIX) 40 mg, Oral, Daily Glucose Blood (ACCU-CHEK JAQUI PLUS ) 4 times daily HumaLOG KWIKPEN 100 UNIT/ML injection Subcutaneous hydrALAZINE (APRESOLINE) 25 mg, Oral, 2 times daily HYDROcodone-acetaminophen (Orono) 5-325 MG tablet 1 tablet, 3 times [...] This Visit Diabetic neuropathy (CMS/HCC) Continue with lyrica OARRS reviewed Fu in 3 months Relevant Medications pregabalin (Lyrica) 300 MG capsule COPD (chronic obstructive pulmonary disease) (CMS/HCC) - Primary Stable at this time, no changes in meds Encouraged smoking cessation Cont with dr Yañez Hypertension ([facility]) Stable on current meds Refill meds Relevant Medications hydrALAZINE (Apresoline) 25 MG tablet lisinopril 20 MG tablet Type 2 diabetes mellitus with complication, with long-term current use of insulin ([facility]) Check blood sugars daily, follow [...] 81 MG chewable tablet Anxiety and depression ([facility]/HCC) Relevant Medications DULoxetine (Cymbalta) [address] capsule Bilateral lower extremity edema Stable on current meds Insomnia Relevant Medications amitriptyline (Elavil) 25 MG tablet Tobacco user Urged to quit Non-seasonal allergic rhinitis Relevant Medications cetirizine (ZyrTEC) 10 MG tablet Hyperpigmentation of skin Will try cerevue ointment to see if helps Other Visit Diagnoses Type 2 diabetes mellitus with unspecified complications ([facility]/HCC) Relevant Medications dapagliflozin (Farxiga) 10 MG Gastro-esophageal reflux disease without esophagitis Relevant Medications omeprazole (PriLOSEC) [address] capsule Edema, unspecified Relevant Medications potassium chloride ER (Micro-K) 10 MEQ ER capsule Edema Relevant Medications potassium chloride ER (Micro-K) 10 MEQ ER capsule Chronic obstructive pulmonary disease, unspecified ([facility]) Relevant Medications Roflumilast 500 MCG [...] include: ?8 oz (237 mL) of milk, mtxcvdw-muxnsoumertw-ybfva milk, and calcium-fortifiedfruit juice. Calcium-fortified means that [...] ?Spinach (cooked), rhubarb, beets, sweet potatoes, and Bangladeshi chard. ?Peanuts. ?Potato chips, trinidadian fries, and baked potatoes with skin on. ?Nuts and nut products. ?Chocolate. If you regularly take a diuretic medicine, make sure to eat at least 1 or 2 servings of fruits or vegetables that are high in potassium each day. These include: ?Avocado. ?Banana. ?[place], prune, carrot, or tomato juice. ?Baked potato. [...] magnesium, fish oil, or vitamin B6. Take vymf-rua-twjwmss and prescription medicines only as told by [...] Casseroles. Pizza. Lasagna. Frozen meals. Potato chips. Peruvian fries. The items listed above may not [...] provider. Document Revised: 03/06/2022 Document Reviewed: 03/06/2022 [employer] Patient Education 2022 [employer]andhalf. Follow Up Care 02/06/2022 11:44:09 With:SARAH VEGA PA-C, URL Address: [address] [place] [address] When: Unknown [facility] [place] 08-24-2022 Note CONSULTATION CONSULTATION [...] We maintain her on pain medication with Orono 5/325 t.i.d., diclofenac 75 mg b.i.d. Her [...] her at this point. A refill for Orono 5/325 t.i.d. and diclofenac 75 mg b.i.d. will be sent to the pharmacy. Vitamin compliance and nutrition were discussed and enforced. I did highly encourage her to use exercise bands to increase the strength in her lower extremities. We will see her in three months' time, unless otherwise indicated, and patient agrees. [facility] 05-11-2022 Note CONSULTATION CONSULTATION DATE: [...] 150. Medications include Lyrica 300 mg b.i.d., Orono 5/325 t.i.d., diclofenac 75 mg b.i.d. and [...] her medications today. We will maintain Lyrica, Orono and diclofenac at the set dose and frequency. We will follow-up in the clinic in three months' time. The patient is in agreement to this. Vitamin importance and nutrition were discussed. [facility] 04-20-2022 Note CONSULTATION CONSULTATION DATE: [...] medications include Tylenol, Lyrica 300 mg b.i.d., Orono 5/325 t.i.d., amitriptyline, diclofenac and duloxetine. Patient's [...] be followed up in the clinic. [facility] 03-08-2022 Evaluation note Encounter Date [...] to the DANIEL. Thrombocytopenia is unclear etiology. [id number] Other 08-15-2022 Evaluation note* Encounter Date Diagnosis [...] follow with Dr. Souza and Dr. Arauz. [place] [facility] Other 08-01-2022 Hospital Discharge instructions Patient Education [...] fried and sweet foods. General instructions Take eocx-xmx-izfqxdo and prescription medicines only as told by [...] 04/21/2010 Document Revised: 10/16/2019 Document Reviewed: 07/11/2018 [employer] Patient Education 2020 [employer]andhalf. Follow Up Care 01/05/2022 12:02:03 With:REGLA PHIPPS, Elbert R, URL Address: [facility] [address] [place] [address]- [phone] When:Within 6 Month(s) Comments:w/ repeat CT A/P [facility] 07-14-2022 NoteCONSULTATION PROCEDURE DATE: 01/19/2022 PRE [...] pattern and the patient tolerated it well. [facility] Signed and Approved by: GIL VALENZUELA . 01/27/2022 14:15:00[facility]07-14-2022 NoteCONSULTATION CONSULTATION DATE: 01/19/2022 This is [...] today. Medications include Lyrica 300 mg b.i.d., Orono 5/325 t.i.d., diclofenac 75 mg b.i.d. and [...] in three months' time unless otherwise indicated. [facility] Signed and Approved by: GIL VALENZUELA . 01/27/2022 [facility]ments Appointment Date:08/14/2022 09:15:00 AM Scheduled Provider:Elbert ARAUZ MD Location:[facility] Appointment Type:URO Office Visit [facility] evaluation + Plan note Future Appointments Appointment Date:04/22/2024 10:00:00 AM Scheduled Provider:SARAH VEGA PA-C Location:[facility] Appointment Type:URO Office Visit [facility] evaluation note* Diagnosis Type 2 diabetes mellitus with unspecified complications (CMS/HCC) Edema, unspecified Edema [facility] Diagnosis Vaginal yeast infection- Primary Candidiasis of vulva and vagina [facility] Diagnosis Primary hypertension (CMS/HCC)- Primary Unspecified essential hypertension Insomnia Insomnia, unspecified Type 2 diabetes mellitus with complication, with long-term current use of insulin ([facility]) Non-seasonal allergic rhinitis, unspecified trigger Type 2 diabetes mellitus with unspecified complications ([facility]) Anxiety and depression ([facility]) Gastro-esophageal reflux disease without esophagitis Edema, unspecified Edema Diabetic polyneuropathy associated with type 2 diabetes mellitus ([facility]) Chronic obstructive pulmonary disease, unspecified ([facility]) Pulmonary emphysema, unspecified emphysema type ([facility]) Bilateral lower extremity edema Tobacco user Tobacco use disorder Hyperpigmentation of skin Other dyschromia documented in this encounter [facility]* Diagnosis Obstructive sleep apnea- Primary Obstructive sleep apnea (adult) (pediatric) Pulmonary emphysema, unspecified emphysema type ([facility]) Primary hypertension ([facility]) Unspecified essential hypertension Type 2 diabetes mellitus with complication, with long-term current use of insulin ([facility]) Anxiety and depression ([facility]) Bilateral lower extremity edema Pulmonary emphysema, unspecified emphysema type ([facility])- Primary Primary hypertension ([facility]) Unspecified essential hypertension Class 3 severe obesity with serious comorbidity and body mass index (BMI) of 50.0 to 59.9 in adult, unspecified obesity type ([facility]) Obstructive sleep apnea Obstructive sleep apnea (adult) (pediatric) Pulmonary hypertension ([facility]) Other chronic pulmonary heart diseases Tobacco user Tobacco use disorder Cardiomegaly Primary hypertension ([facility])- Primary Unspecified essential hypertension Gastroesophageal reflux disease, unspecified whether esophagitis present Type 2 diabetes mellitus with complication, with long-term current use of insulin ([facility]) Mixed hyperlipidemia ([facility]) Mixed hyperlipidemia Tobacco user Tobacco use disorder Encounter for screening mammogram for malignant neoplasm of breast Chronic obstructive pulmonary disease, unspecified ([facility]) Other specified chronic obstructive pulmonary disease ([facility]) Anxiety and depression ([facility]) Edema, unspecified Edema Hyperlipidemia, unspecified ([facility]) Diabetic polyneuropathy associated with type 2 diabetes mellitus ([facility]) Gout, unspecified cause, unspecified chronicity, unspecified site Non-seasonal allergic rhinitis, unspecified trigger Bilateral lower extremity edema COPD exacerbation ([facility]) Obstructive chronic bronchitis with exacerbation Pulmonary emphysema, unspecified emphysema type ([facility]) Venous insufficiency Unspecified venous (peripheral) insufficiency Candidiasis of breast COPD exacerbation ([facility])- Primary Obstructive chronic bronchitis with [...] Major depressive disorder, single episode, mild (HCC) ([facility]) Major depressive disorder, single episode, [...] hyperglycemia, with long-term current use of insulin (CMS/HCC)- Primary Encounter for dietary consultation Vitamin D deficiency Primary hypertension (CMS/HCC) Unspecified essential hypertension Insulin long-term use ([facility]) Encounter for long-term (current) use of insulin Hyperlipemia, mixed ([facility]) Mixed hyperlipidemia Microalbuminuria Proteinuria Class 3 severe obesity due to excess calories with serious comorbidity and body mass index (BMI) of 50.0 to 59.9 in adult ([facility]) documented in this encounter [facility]* Diagnosis Hyperlipidemia, unspecified ([facility]) Bilateral lower extremity edema documented in this encounter [facility]* Diagnosis Vitamin D deficiency, unspecified documented in this encounter [facility]* Diagnosis Obstructive sleep apnea- Primary Obstructive sleep apnea (adult) (pediatric) Pulmonary emphysema, unspecified emphysema type ([facility]) Primary hypertension ([facility]) Unspecified essential hypertension Type 2 diabetes mellitus with complication, with long-term current use of insulin ([facility]) Anxiety and depression ([facility]) Bilateral lower extremity edema Pulmonary emphysema, unspecified emphysema type ([facility])- Primary Primary hypertension ([facility]) Unspecified essential hypertension Class 3 severe obesity with serious comorbidity and body mass index (BMI) of 50.0 to 59.9 in adult, unspecified obesity type ([facility]) Obstructive sleep apnea Obstructive sleep apnea (adult) (pediatric) Pulmonary hypertension ([facility]) Other chronic pulmonary heart diseases Tobacco user Tobacco use disorder Cardiomegaly Primary hypertension ([facility])- Primary Unspecified essential hypertension Gastroesophageal reflux disease, unspecified whether esophagitis present Type 2 diabetes mellitus with complication, with long-term current use of insulin ([facility]) Mixed hyperlipidemia ([facility]) Mixed hyperlipidemia Tobacco user Tobacco use disorder Encounter for screening mammogram for malignant neoplasm of breast Chronic obstructive pulmonary disease, unspecified ([facility]) Other specified chronic obstructive pulmonary disease ([facility]) Anxiety and depression ([facility]) Edema, unspecified Edema Hyperlipidemia, unspecified ([facility]) Diabetic polyneuropathy associated with type 2 diabetes mellitus ([facility]) Gout, unspecified cause, unspecified chronicity, unspecified site Non-seasonal allergic rhinitis, unspecified trigger Bilateral lower extremity edema COPD exacerbation ([facility]) Obstructive chronic bronchitis with exacerbation Pulmonary emphysema, unspecified emphysema type ([facility]) Venous insufficiency Unspecified venous (peripheral) insufficiency Candidiasis of breast COPD exacerbation ([facility])- Primary Obstructive chronic bronchitis with exacerbation Pulmonary hypertension ([facility]) Other chronic pulmonary heart diseases [...] of breast Chronic obstructive pulmonary disease, unspecified ([facility]) Other specified chronic obstructive pulmonary disease (CMS/HCC) Anxiety and depression (CMS/HCC) Edema, unspecified Edema Hyperlipidemia, unspecified ([facility]) Diabetic polyneuropathy associated with type 2 diabetes mellitus ([facility]) Gout, unspecified cause, unspecified chronicity, unspecified site Non-seasonal allergic rhinitis, unspecified trigger Bilateral lower extremity edema COPD exacerbation ([facility]) Obstructive chronic bronchitis with exacerbation Pulmonary emphysema, unspecified emphysema type (CMS/HCC) Venous insufficiency Unspecified venous (peripheral) insufficiency Candidiasis of breast COPD exacerbation (CMS/HCC)- Primary Obstructive chronic bronchitis with exacerbation Pulmonary hypertension (CMS/HCC) Other chronic pulmonary heart diseases Class 3 severe obesity with serious comorbidity and body mass index (BMI) of 50.0 to 59.9 in adult, unspecified obesity type ([facility]/HCC) Encounter for subsequent annual wellness visit (AWV) in Medicare patient- Primary Type 2 diabetes mellitus with unspecified complications (CMS/HCC) Pulmonary emphysema, unspecified emphysema type (CMS/HCC) Moderate persistent asthma without complication (CMS/HCC) Primary hypertension (CMS/HCC) Unspecified essential hypertension Type 2 diabetes mellitus with complication, with long-term current use of insulin ([facility]) Class 3 severe obesity with serious comorbidity and body mass index (BMI) of 50.0 to 59.9 in adult, unspecified obesity type (CMS/HCC) Tobacco user Tobacco use disorder Other headache syndrome Malignant neoplasm of cervix uteri, unspecified (CMS/HCC) Other specified disorders of adrenal gland (CMS/HCC) Major depressive disorder, single episode, mild (HCC) ([facility]/HCC) Major depressive disorder, single episode, mild Non-pressure [...] complication, with long-term current use of insulin ([facility]) Non-seasonal allergic rhinitis, unspecified trigger Type 2 diabetes mellitus with unspecified complications ([facility]) Anxiety and depression ([facility]) Gastro-esophageal reflux disease without esophagitis Edema, unspecified Edema Diabetic polyneuropathy associated with type 2 diabetes mellitus ([facility]) Chronic obstructive pulmonary disease, unspecified ([facility]) Pulmonary emphysema, unspecified emphysema type (CMS/HCC) Bilateral lower extremity edema Tobacco user Tobacco use disorder Hyperpigmentation of skin Other dyschromia Primary hypertension (CMS/HCC)- Primary Unspecified essential hypertension Diabetic polyneuropathy associated with type 2 diabetes mellitus (CMS/HCC) Pulmonary emphysema, unspecified emphysema type (CMS/HCC) Critical limb ischemia of right lower extremity (CMS/HCC) PAD (peripheral artery disease) ([facility]) Unspecified peripheral vascular disease Gastroesophageal reflux disease, unspecified whether esophagitis present Bilateral lower extremity edema Venous ulcer of right leg ([facility]) Type 2 diabetes mellitus with complication, with long-term current use of insulin ([facility]) Tobacco user Tobacco use disorder Encounter for smoking cessation counseling Kidney stone Calculus of kidney Adrenal mass 1 cm to 4 cm in diameter ([facility]) Radiculopathy, lumbar region Thoracic or lumbosacral neuritis or radiculitis, unspecified Non-seasonal allergic rhinitis, unspecified trigger Type 2 diabetes mellitus with unspecified complications (CMS/HCC) documented in this encounter [facility] HealthcareEvaluation note* Diagnosis Obstructive sleep apnea- Primary Obstructive sleep apnea (adult) (pediatric) Pulmonary emphysema, unspecified emphysema type (CMS/HCC) Primary hypertension (CMS/[facility]) Unspecified essential hypertension Type 2 diabetes mellitus with complication, with long-term current use of insulin ([facility]) Anxiety and depression (CMS/[facility]) Bilateral lower extremity edema Pulmonary emphysema, unspecified emphysema type ([facility]/HCC)- Primary Primary hypertension ([facility]) Unspecified essential hypertension Class 3 severe obesity with serious comorbidity and body mass index (BMI) of 50.0 to 59.9 in adult, unspecified obesity type ([facility]) Obstructive sleep apnea Obstructive sleep apnea (adult) (pediatric) Pulmonary hypertension ([facility]) Other chronic pulmonary heart diseases Tobacco user Tobacco use disorder Cardiomegaly Primary hypertension ([facility])- Primary Unspecified essential hypertension Gastroesophageal reflux disease, unspecified whether esophagitis present Type 2 diabetes mellitus with complication, with long-term current use of insulin ([facility]) Mixed hyperlipidemia ([facility]) Mixed hyperlipidemia Tobacco user Tobacco use disorder Encounter for screening mammogram for malignant neoplasm of breast Chronic obstructive pulmonary disease, unspecified ([facility]) Other specified chronic obstructive pulmonary disease ([facility]) Anxiety and depression ([facility]) Edema, unspecified Edema Hyperlipidemia, unspecified ([facility]) Diabetic polyneuropathy associated with type 2 diabetes mellitus ([facility]) Gout, unspecified cause, unspecified chronicity, unspecified site Non-seasonal allergic rhinitis, unspecified trigger Bilateral lower extremity edema COPD exacerbation ([facility]) Obstructive chronic bronchitis with exacerbation Pulmonary emphysema, unspecified emphysema type ([facility]) Venous insufficiency Unspecified venous (peripheral) insufficiency Candidiasis of breast COPD exacerbation ([facility])- Primary Obstructive chronic bronchitis with exacerbation Pulmonary hypertension ([facility]) Other chronic pulmonary heart diseases Class 3 severe obesity with serious comorbidity and body mass index (BMI) of 50.0 to 59.9 in adult, unspecified obesity type ([facility]) Encounter for subsequent annual wellness visit (AWV) in Medicare patient- Primary Type 2 diabetes mellitus with unspecified complications ([facility]) Pulmonary emphysema, unspecified emphysema type ([facility]) Moderate persistent asthma without complication ([facility]) Primary hypertension ([facility]) Unspecified essential hypertension Type 2 diabetes mellitus with complication, with long-term current use of insulin ([facility]) Class 3 severe obesity with serious comorbidity and body mass index (BMI) of 50.0 to 59.9 in adult, unspecified obesity type ([facility]) Tobacco user Tobacco use disorder [...] complication, with long-term current use of insulin (CMS/[facility]) Non-seasonal allergic rhinitis, unspecified trigger Type 2 diabetes mellitus with unspecified complications (CMS/HCC) Anxiety and depression (CMS/[facility]) Gastro-esophageal reflux disease without esophagitis [...] Critical limb ischemia of right lower extremity (CMS/[facility]) PAD (peripheral artery disease) ([facility]) Unspecified peripheral vascular disease Gastroesophageal reflux disease, unspecified whether esophagitis present Bilateral lower extremity edema Venous ulcer of right leg (CMS/[facility]) Type 2 diabetes mellitus with complication, with long-term current use of insulin (CMS/HCC) Tobacco user Tobacco use disorder Encounter for smoking cessation counseling Kidney stone Calculus of kidney Adrenal mass 1 cm to 4 cm in diameter ([facility]) Radiculopathy, lumbar region Thoracic or lumbosacral neuritis or radiculitis, unspecified Non-seasonal allergic rhinitis, unspecified trigger Type 2 diabetes mellitus with unspecified complications (CMS/HCC) Anxiety and depression (CMS/HCC)- Primary Morbid (severe) obesity due to excess calories (CMS/[facility]) Body mass index (BMI) 50.0-59.9, adult (CMS/[facility]) Malignant neoplasm of cervix uteri, unspecified ([facility]) Diabetic polyneuropathy associated with type 2 diabetes mellitus ([facility]) Chronic diastolic heart failure ([facility]) Chronic diastolic heart failure Primary hypertension ([facility]) Unspecified essential hypertension 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 ([facility]) Gastroesophageal reflux disease, unspecified whether esophagitis present Bilateral lower extremity edema Type 2 diabetes mellitus with complication, with long-term current use of insulin ([facility]) Tobacco user Tobacco use disorder Mixed hyperlipidemia ([facility]) Mixed hyperlipidemia Gout, unspecified cause, unspecified chronicity, unspecified site Vitamin deficiency Unspecified vitamin deficiency Gastro-esophageal reflux disease without esophagitis Edema, unspecified Edema Hyperlipidemia, unspecified ([facility]) Encounter for smoking cessation counseling Venous ulcer of right leg ([facility]) Antibiotic-induced yeast infection documented in this encounter [facility] HealthcareEvaluation note* Diagnosis Obstructive sleep apnea- Primary Obstructive sleep apnea (adult) (pediatric) Pulmonary emphysema, unspecified emphysema type ([facility]) Primary hypertension ([facility]) Unspecified essential hypertension Type 2 diabetes mellitus with complication, with long-term current use of insulin ([facility]) Anxiety and depression ([facility]) Bilateral lower extremity edema Pulmonary emphysema, unspecified emphysema type ([facility])- Primary Primary hypertension ([facility]) Unspecified essential hypertension Class 3 severe obesity with serious comorbidity and body mass index (BMI) of 50.0 to 59.9 in adult, unspecified obesity type Obstructive sleep apnea Obstructive sleep apnea (adult) (pediatric) Pulmonary hypertension ([facility]) Other chronic pulmonary heart diseases Tobacco user Tobacco use disorder Cardiomegaly Primary hypertension ([facility])- Primary Unspecified essential hypertension Gastroesophageal reflux disease, unspecified whether esophagitis present Type 2 diabetes mellitus with complication, with long-term current use of insulin ([facility]) Mixed hyperlipidemia ([facility]) Mixed hyperlipidemia Tobacco user Tobacco use disorder Encounter for screening mammogram for malignant neoplasm of breast Chronic obstructive pulmonary disease, unspecified Other specified chronic obstructive pulmonary disease Anxiety and depression ([facility]) Edema, unspecified Edema Hyperlipidemia, unspecified ([facility]) Diabetic polyneuropathy associated with type 2 diabetes mellitus ([facility]) Gout, unspecified cause, unspecified chronicity, [...] unspecified complications Pulmonary emphysema, unspecified emphysema type (CMS/HCC) Moderate [...] Major depressive disorder, single episode, mild (HCC) (CMS/[facility]) Major depressive disorder, single episode, [...] mellitus with unspecified complications Anxiety and depression (CMS/HCC) Gastro-esophageal reflux disease [...] lower extremity (CMS/HCC) PAD (peripheral artery disease) ([facility]) Unspecified peripheral vascular disease Gastroesophageal reflux disease, unspecified whether esophagitis present Bilateral lower extremity edema Venous ulcer of right leg ([facility]) Type 2 diabetes mellitus with complication, with long-term current use of insulin ([facility]) Tobacco user Tobacco use disorder Encounter for smoking cessation counseling Kidney stone Calculus of kidney Adrenal mass 1 cm to 4 cm in diameter ([facility]) Radiculopathy, lumbar region Thoracic or lumbosacral neuritis or radiculitis, unspecified Non-seasonal allergic rhinitis, unspecified trigger Type 2 diabetes mellitus with unspecified complications Anxiety and depression ([facility])- Primary Morbid (severe) obesity due to excess calories ([facility]) Body mass index (BMI) 50.0-59.9, adult ([facility]) Malignant neoplasm of cervix uteri, unspecified Diabetic polyneuropathy associated with type 2 diabetes mellitus ([facility]) Chronic diastolic heart failure ([facility]) Chronic diastolic heart failure Primary hypertension ([facility]) Unspecified essential hypertension 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 Gastroesophageal reflux disease, unspecified whether esophagitis present Bilateral lower extremity edema Type 2 diabetes mellitus with complication, with long-term current use of insulin ([facility]) Tobacco user Tobacco use disorder Mixed hyperlipidemia ([facility]) Mixed hyperlipidemia Gout, unspecified cause, unspecified chronicity, unspecified site Vitamin deficiency Unspecified vitamin deficiency Gastro-esophageal reflux disease without esophagitis Edema, unspecified Edema Hyperlipidemia, unspecified ([facility]) Encounter for smoking cessation counseling Venous ulcer of right leg ([facility]) Antibiotic-induced yeast infection Type 2 diabetes mellitus with hyperglycemia, with long-term current use of insulin ([facility])- Primary Encounter for dietary consultation Vitamin D deficiency Primary hypertension ([facility]) Unspecified essential hypertension Insulin long-term use ([facility]) Encounter for long-term (current) use of insulin Hyperlipemia, mixed ([facility]) Mixed hyperlipidemia Microalbuminuria Proteinuria Class 3 severe obesity due to excess calories with serious comorbidity and body mass index (BMI) of 50.0 to 59.9 in adult documented in this encounter [facility] HealthcareEvaluation note* Diagnosis Obstructive sleep apnea- Primary Obstructive sleep apnea (adult) (pediatric) Pulmonary emphysema, unspecified emphysema type ([facility]) Primary hypertension ([facility]) Unspecified essential hypertension Type 2 diabetes mellitus with complication, with long-term current use of insulin (CMS/[facility]) Anxiety and depression (CMS/[facility]) Bilateral lower extremity edema Pulmonary emphysema, unspecified emphysema type (CMS/HCC)- Primary Primary hypertension ([facility]) Unspecified essential hypertension Class 3 severe obesity with serious comorbidity and body mass index (BMI) of 50.0 to 59.9 in adult, unspecified obesity type Obstructive sleep apnea Obstructive sleep apnea (adult) (pediatric) Pulmonary hypertension (CMS/HCC) Other chronic pulmonary heart diseases Tobacco user Tobacco use disorder Cardiomegaly Primary hypertension (CMS/[facility])- Primary Unspecified essential hypertension Gastroesophageal reflux disease, unspecified whether esophagitis present Type 2 diabetes mellitus with complication, with long-term current use of insulin (CMS/[facility]) Mixed hyperlipidemia (CMS/[facility]) Mixed hyperlipidemia Tobacco user Tobacco use disorder Encounter for screening mammogram for malignant neoplasm of breast Chronic obstructive pulmonary disease, unspecified Other specified chronic obstructive pulmonary disease Anxiety and depression (CMS/[facility]) Edema, unspecified Edema Hyperlipidemia, unspecified (CMS/[facility]) Diabetic polyneuropathy associated with type 2 diabetes mellitus ([facility]) Gout, unspecified cause, unspecified chronicity, unspecified site Non-seasonal allergic rhinitis, unspecified trigger Bilateral lower extremity edema COPD exacerbation (CMS/[facility]) Obstructive chronic bronchitis with exacerbation Pulmonary emphysema, unspecified emphysema type (CMS/HCC) Venous insufficiency Unspecified venous (peripheral) insufficiency Candidiasis of breast COPD exacerbation (CMS/[facility])- Primary Obstructive chronic bronchitis with exacerbation Pulmonary hypertension (CMS/[facility]) Other chronic pulmonary heart diseases Class 3 severe obesity with serious comorbidity and body mass index (BMI) of 50.0 to 59.9 in adult, unspecified obesity type Encounter for subsequent annual wellness visit (AWV) in Medicare patient- Primary Type 2 diabetes mellitus with unspecified complications Pulmonary emphysema, unspecified emphysema type (CMS/[facility]) Moderate persistent asthma without complication (CMS/[facility]) Primary hypertension ([facility]) Unspecified essential hypertension Type 2 diabetes mellitus with complication, with long-term current use of insulin ([facility]) Class 3 severe obesity with serious comorbidity and body mass index (BMI) of 50.0 to 59.9 in adult, unspecified obesity type Tobacco user Tobacco use disorder Other headache syndrome Malignant neoplasm of cervix uteri, unspecified Other specified disorders of adrenal gland Major depressive disorder, single episode, mild (HCC) (CMS/[facility]) Major depressive disorder, single episode, mild 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 exposed Chronic respiratory failure, unspecified whether with hypoxia or hypercapnia Disorder of adrenal gland, unspecified Non-pressure chronic ulcer of other part of right lower leg limited to breakdown of skin ([facility]) Non-recurrent acute suppurative otitis media of left ear without spontaneous rupture of tympanic membrane Primary hypertension ([facility])- Primary Unspecified essential hypertension Insomnia Insomnia, unspecified Type 2 diabetes mellitus with complication, with long-term current use of insulin ([facility]) Non-seasonal allergic rhinitis, unspecified trigger Type 2 diabetes mellitus with unspecified complications Anxiety and depression ([facility]) Gastro-esophageal reflux disease without esophagitis Edema, unspecified Edema Diabetic polyneuropathy associated with type 2 diabetes mellitus ([facility]) Chronic obstructive pulmonary disease, unspecified Pulmonary emphysema, unspecified emphysema type ([facility]) Bilateral lower extremity edema Tobacco user Tobacco use disorder Hyperpigmentation of skin Other dyschromia Primary hypertension ([facility])- Primary Unspecified essential hypertension Diabetic polyneuropathy associated with type 2 diabetes mellitus ([facility]) Pulmonary emphysema, unspecified emphysema type ([facility]) Critical limb ischemia of right lower extremity ([facility]) PAD (peripheral artery disease) ([facility]) Unspecified peripheral vascular disease Gastroesophageal reflux disease, unspecified whether esophagitis present Bilateral lower extremity edema Venous ulcer of right leg ([facility]) Type 2 diabetes mellitus with complication, with long-term current use of insulin ([facility]) Tobacco user Tobacco use disorder Encounter for smoking cessation counseling Kidney stone Calculus of kidney Adrenal mass 1 cm to 4 cm in diameter ([facility]) Radiculopathy, lumbar region Thoracic or lumbosacral neuritis or radiculitis, unspecified Non-seasonal allergic rhinitis, unspecified trigger Type 2 diabetes mellitus with unspecified complications Anxiety and depression ([facility])- Primary Morbid (severe) obesity due to excess calories ([facility]) Body mass index (BMI) 50.0-59.9, adult ([facility]) Malignant neoplasm of cervix uteri, unspecified Diabetic polyneuropathy associated with type 2 diabetes mellitus ([facility]) Chronic diastolic heart failure ([facility]) Chronic diastolic heart failure Primary hypertension ([facility]) Unspecified essential hypertension 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 Gastroesophageal reflux disease, unspecified whether esophagitis present Bilateral lower extremity edema Type 2 diabetes mellitus with complication, with long-term current use of insulin ([facility]) Tobacco user Tobacco use disorder Mixed hyperlipidemia ([facility]) Mixed hyperlipidemia Gout, unspecified cause, unspecified chronicity, unspecified site Vitamin deficiency Unspecified vitamin deficiency Gastro-esophageal reflux disease without esophagitis Edema, unspecified Edema Hyperlipidemia, unspecified ([facility]) Encounter for smoking cessation counseling Venous ulcer of right leg ([facility]) Antibiotic-induced yeast infection Chronic obstructive pulmonary disease, unspecified documented in this encounter [facility] HealthcareEvaluation note* Diagnosis Obstructive sleep apnea- Primary Obstructive sleep apnea (adult) (pediatric) Pulmonary emphysema, unspecified emphysema type ([facility]) Primary hypertension ([facility]) Unspecified essential hypertension Type 2 diabetes mellitus with complication, with long-term current use of insulin ([facility]) Anxiety and depression ([facility]) Bilateral lower extremity edema Pulmonary emphysema, unspecified emphysema type ([facility])- Primary Primary hypertension ([facility]) Unspecified essential hypertension Class 3 severe obesity with serious comorbidity and body mass index (BMI) of 50.0 to 59.9 in adult, unspecified obesity type Obstructive sleep apnea Obstructive sleep apnea (adult) (pediatric) Pulmonary hypertension ([facility]) Other chronic pulmonary heart diseases Tobacco user Tobacco use disorder Cardiomegaly Primary hypertension ([facility])- Primary Unspecified essential hypertension Gastroesophageal reflux disease, unspecified whether esophagitis present Type 2 diabetes mellitus with complication, with long-term current use of insulin ([facility]) Mixed hyperlipidemia ([facility]) Mixed hyperlipidemia Tobacco user Tobacco use disorder Encounter for screening mammogram for malignant neoplasm of breast Chronic obstructive pulmonary disease, unspecified Other specified chronic obstructive pulmonary disease Anxiety and depression ([facility]) Edema, unspecified Edema Hyperlipidemia, unspecified ([facility]) Diabetic polyneuropathy associated with type 2 diabetes mellitus ([facility]) Gout, unspecified cause, unspecified chronicity, unspecified site Non-seasonal allergic rhinitis, unspecified trigger Bilateral lower extremity edema COPD exacerbation ([facility]) Obstructive chronic bronchitis with exacerbation Pulmonary emphysema, unspecified emphysema type ([facility]) Venous insufficiency Unspecified venous (peripheral) insufficiency Candidiasis of breast COPD exacerbation ([facility])- Primary Obstructive chronic bronchitis with exacerbation Pulmonary hypertension ([facility]) Other chronic pulmonary heart diseases Class 3 severe obesity with serious comorbidity and body mass index (BMI) of 50.0 to 59.9 in adult, unspecified obesity type Encounter for subsequent annual wellness visit (AWV) in Medicare patient- Primary Type 2 diabetes mellitus with unspecified complications Pulmonary emphysema, unspecified emphysema type ([facility]) Moderate persistent asthma without complication (CMS/HCC) Primary hypertension ([facility]) Unspecified essential hypertension Type 2 diabetes mellitus with complication, with long-term current use of insulin ([facility]) Class 3 severe obesity with serious comorbidity and body mass index (BMI) of 50.0 to 59.9 in adult, unspecified obesity type Tobacco user Tobacco use disorder Other headache syndrome Malignant neoplasm of cervix uteri, unspecified Other specified disorders of adrenal gland Major depressive disorder, single episode, mild (HCC) ([facility]) Major depressive disorder, single episode, mild 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 exposed Chronic respiratory failure, unspecified whether with hypoxia or hypercapnia Disorder of adrenal gland, unspecified Non-pressure chronic ulcer of other part of right lower leg limited to breakdown of skin ([facility]) Non-recurrent acute suppurative otitis media of left ear without spontaneous rupture of tympanic membrane Primary hypertension ([facility])- Primary Unspecified essential hypertension Insomnia Insomnia, unspecified Type 2 diabetes mellitus with complication, with long-term current use of insulin ([facility]) Non-seasonal allergic rhinitis, unspecified trigger Type 2 diabetes mellitus with unspecified complications Anxiety and depression ([facility]) Gastro-esophageal reflux disease without esophagitis Edema, unspecified Edema Diabetic polyneuropathy associated with type 2 diabetes mellitus ([facility]) Chronic obstructive pulmonary disease, unspecified Pulmonary emphysema, unspecified emphysema type ([facility]/HCC) Bilateral lower extremity edema Tobacco user Tobacco use disorder Hyperpigmentation of skin Other dyschromia Primary hypertension (CMS/HCC)- Primary Unspecified essential hypertension Diabetic polyneuropathy associated with type 2 diabetes mellitus (CMS/[facility]) Pulmonary emphysema, unspecified emphysema type (CMS/HCC) Critical limb ischemia of right lower extremity ([facility]) PAD (peripheral artery disease) ([facility]) Unspecified peripheral vascular disease Gastroesophageal reflux disease, unspecified whether esophagitis present Bilateral lower extremity edema Venous ulcer of right leg ([facility]) Type 2 diabetes mellitus with complication, with long-term current use of insulin ([facility]) Tobacco user Tobacco use disorder Encounter for smoking cessation counseling Kidney stone Calculus of kidney Adrenal mass 1 cm to 4 cm in diameter ([facility]) Radiculopathy, lumbar region Thoracic or lumbosacral neuritis or radiculitis, unspecified Non-seasonal allergic rhinitis, unspecified trigger Type 2 diabetes mellitus with unspecified complications Anxiety and depression ([facility])- Primary Morbid (severe) obesity due to excess calories ([facility]) Body mass index (BMI) 50.0-59.9, adult ([facility]) Malignant neoplasm of cervix uteri, unspecified Diabetic polyneuropathy associated with type 2 diabetes mellitus ([facility]) Chronic diastolic heart failure ([facility]) Chronic diastolic heart failure Primary hypertension ([facility]) Unspecified essential hypertension 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 Gastroesophageal reflux disease, unspecified whether esophagitis present Bilateral lower extremity edema Type 2 diabetes mellitus with complication, with long-term current use of insulin ([facility]) Tobacco user Tobacco use disorder Mixed hyperlipidemia ([facility]) Mixed hyperlipidemia Gout, unspecified cause, unspecified chronicity, unspecified site Vitamin deficiency Unspecified vitamin deficiency Gastro-esophageal reflux disease without esophagitis Edema, unspecified Edema Hyperlipidemia, unspecified ([facility]) Encounter for smoking cessation counseling Venous ulcer of right leg ([facility]) Antibiotic-induced yeast infection Primary hypertension ([facility])- Primary Unspecified essential hypertension Diabetic polyneuropathy associated with type 2 diabetes mellitus ([facility]) Chronic diastolic heart failure ([facility]) Chronic diastolic heart failure Bilateral lower extremity edema Morbid (severe) obesity due to excess calories ([facility]) Type 2 diabetes mellitus with complication, with long-term current use of insulin ([facility]) Anxiety and depression ([facility]) Cigarette nicotine dependence without complication Encounter for screening mammogram for malignant neoplasm of breast Insomnia Insomnia, unspecified Non-seasonal allergic rhinitis, unspecified trigger Type 2 diabetes mellitus with unspecified complications Vitamin D deficiency, unspecified Gastro-esophageal reflux disease without esophagitis PAD (peripheral artery disease) ([facility]) Unspecified peripheral vascular disease Gastroesophageal reflux disease, unspecified whether esophagitis present Venous ulcer of right leg ([facility]) documented in this encounter [facility] HealthcareEvaluation note* Diagnosis Obstructive sleep apnea- Primary Obstructive sleep apnea (adult) (pediatric) Pulmonary emphysema, unspecified emphysema type ([facility]) Primary hypertension Unspecified essential hypertension Type 2 diabetes mellitus with complication, with long-term current use of insulin (HCC) Anxiety and depression Bilateral lower extremity edema Pulmonary emphysema, unspecified emphysema type (HCC)- Primary Primary hypertension Unspecified essential hypertension Class 3 severe obesity with serious comorbidity and body mass index (BMI) of 50.0 to 59.9 in adult, unspecified obesity type ([facility]) Obstructive sleep apnea Obstructive sleep [...] to 59.9 in adult, unspecified obesity type ([facility] [place]) Encounter for subsequent [...] 59.9 in adult, unspecified obesity type ([facility]) Tobacco user Tobacco use disorder [...] lower leg limited to breakdown of skin ([facility]) Non-recurrent acute suppurative otitis media of left ear without spontaneous rupture of tympanic membrane Primary hypertension- Primary Unspecified essential hypertension Insomnia Insomnia, unspecified Type 2 diabetes mellitus with complication, with long-term current use of insulin ([facility]) Non-seasonal allergic rhinitis, unspecified trigger Type 2 diabetes mellitus with unspecified complications ([facility]) Anxiety and depression Gastro-esophageal reflux disease without esophagitis Edema, unspecified Edema Diabetic polyneuropathy associated with type 2 diabetes mellitus ([facility]) Chronic obstructive pulmonary disease, unspecified ([facility]) Pulmonary emphysema, unspecified emphysema type ([facility]) Bilateral lower extremity edema Tobacco user Tobacco use disorder Hyperpigmentation of skin Other dyschromia Primary hypertension- Primary Unspecified essential hypertension Diabetic polyneuropathy associated with type 2 diabetes mellitus ([facility]) Pulmonary emphysema, unspecified emphysema type ([facility]) Critical limb ischemia of right lower extremity ([facility]) PAD (peripheral artery disease) Unspecified peripheral vascular disease Gastroesophageal reflux disease, unspecified whether esophagitis present Bilateral lower extremity edema Venous ulcer of right leg ([facility]) Type 2 diabetes mellitus with complication, with long-term current use of insulin ([facility]) Tobacco user Tobacco use disorder Encounter for smoking cessation counseling Kidney stone Calculus of kidney Adrenal mass 1 cm to 4 cm in diameter ([facility]) Radiculopathy, lumbar region Thoracic or lumbosacral neuritis or radiculitis, unspecified Non-seasonal allergic rhinitis, unspecified trigger Type 2 diabetes mellitus with unspecified complications ([facility]) Anxiety and depression- Primary Morbid (severe) obesity due to excess calories ([facility] [place]) Body mass index (BMI) 50.0-59.9, adult ([facility] [place]) Malignant neoplasm of cervix uteri, unspecified ([facility]) Diabetic polyneuropathy associated with type 2 diabetes mellitus ([facility]) Chronic diastolic heart failure (HCC) Chronic diastolic heart failure Primary hypertension Unspecified essential hypertension 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 ([facility]) Gastroesophageal reflux disease, unspecified whether esophagitis present Bilateral lower extremity edema Type 2 diabetes mellitus with complication, with long-term current use of insulin ([facility]) Tobacco user Tobacco use disorder [...] (severe) obesity due to excess calories ([facility]) Type 2 diabetes mellitus with [...] of left lower extremity- Primary COPD exacerbation ([facility]) Obstructive chronic bronchitis with exacerbation Primary hypertension Unspecified essential hypertension Pulmonary hypertension (HCC) Other chronic pulmonary heart diseases Morbid (severe) obesity due to excess calories ([facility]) Type 2 diabetes mellitus with complication, with long-term current use of insulin ([facility]) Anxiety and depression Fever, unspecified fever cause Hyperlipidemia, unspecified Tobacco user Tobacco use disorder Encounter for smoking cessation counseling documented in this encounter [facility] HealthcareEvaluation note* Diagnosis Obstructive sleep apnea- Primary Obstructive sleep apnea (adult) (pediatric) Pulmonary emphysema, unspecified emphysema type ([facility]) Primary hypertension ([facility]) Unspecified essential hypertension Type 2 diabetes mellitus with complication, with long-term current use of insulin ([facility]) Anxiety and depression ([facility]) Bilateral lower extremity edema Pulmonary emphysema, unspecified emphysema type ([facility])- Primary Primary hypertension ([facility]) Unspecified essential hypertension Class 3 severe obesity with serious comorbidity and body mass index (BMI) of 50.0 to 59.9 in adult, unspecified obesity type Obstructive sleep apnea Obstructive sleep apnea (adult) (pediatric) Pulmonary hypertension ([facility]) Other chronic pulmonary heart diseases Tobacco user Tobacco use disorder Cardiomegaly Primary hypertension ([facility])- Primary Unspecified essential hypertension Gastroesophageal reflux disease, unspecified whether esophagitis present Type 2 diabetes mellitus with complication, with long-term current use of insulin ([facility]) Mixed hyperlipidemia ([facility]) Mixed hyperlipidemia Tobacco user Tobacco use disorder Encounter for screening mammogram for malignant neoplasm of breast Chronic obstructive pulmonary disease, unspecified Other specified chronic obstructive pulmonary disease Anxiety and depression (CMS/[facility]) Edema, unspecified Edema Hyperlipidemia, unspecified (CMS/[facility]) Diabetic polyneuropathy associated with type 2 diabetes mellitus (CMS/[facility]) Gout, unspecified cause, unspecified chronicity, unspecified site Non-seasonal allergic rhinitis, unspecified trigger Bilateral lower extremity edema COPD exacerbation (CMS/[facility]) Obstructive chronic bronchitis with exacerbation Pulmonary emphysema, unspecified emphysema type (CMS/HCC) Venous insufficiency Unspecified venous (peripheral) insufficiency Candidiasis of breast COPD exacerbation (CMS/HCC)- Primary Obstructive chronic bronchitis with exacerbation Pulmonary hypertension (CMS/[facility]) Other chronic pulmonary heart diseases Class 3 severe obesity with serious comorbidity and body mass index (BMI) of 50.0 to 59.9 in adult, unspecified obesity type Encounter for subsequent annual wellness visit (AWV) in Medicare patient- Primary Type 2 diabetes mellitus with unspecified complications Pulmonary emphysema, unspecified emphysema type (CMS/[facility]) Moderate persistent asthma without complication (CMS/[facility]) Primary hypertension (CMS/[facility]) Unspecified essential hypertension Type 2 diabetes mellitus with complication, with long-term current use of insulin ([facility]) Class 3 severe obesity with serious comorbidity and body mass index (BMI) of 50.0 to 59.9 in adult, unspecified obesity type Tobacco user Tobacco use disorder Other headache syndrome Malignant neoplasm of cervix uteri, unspecified Other specified disorders of adrenal gland Major depressive disorder, single episode, mild (HCC) (CMS/[facility]) Major depressive disorder, single episode, mild 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 exposed Chronic respiratory failure, unspecified whether with hypoxia or hypercapnia Disorder of adrenal gland, unspecified Non-pressure chronic ulcer of other part of right lower leg limited to breakdown of skin (CMS/[facility]) Non-recurrent acute suppurative otitis media of left ear without spontaneous rupture of tympanic membrane Primary hypertension ([facility])- Primary Unspecified essential hypertension Insomnia Insomnia, unspecified Type 2 diabetes mellitus with complication, with long-term current use of insulin (CMS/[facility]) Non-seasonal allergic rhinitis, unspecified trigger Type 2 diabetes mellitus with unspecified complications Anxiety and depression (CMS/[facility]) Gastro-esophageal reflux disease without esophagitis Edema, unspecified Edema Diabetic polyneuropathy associated with type 2 diabetes mellitus (CMS/[facility]) Chronic obstructive pulmonary disease, unspecified Pulmonary emphysema, unspecified emphysema type (CMS/HCC) Bilateral lower extremity edema Tobacco user Tobacco use disorder Hyperpigmentation of skin Other dyschromia Primary hypertension ([facility])- Primary Unspecified essential hypertension Diabetic polyneuropathy associated with type 2 diabetes mellitus ([facility]) Pulmonary emphysema, unspecified emphysema type ([facility]) Critical limb ischemia of right lower extremity ([facility]) PAD (peripheral artery disease) ([facility]) Unspecified peripheral vascular disease Gastroesophageal reflux disease, unspecified whether esophagitis present Bilateral lower extremity edema Venous ulcer of right leg ([facility]) Type 2 diabetes mellitus with complication, with long-term current use of insulin ([facility]) Tobacco user Tobacco use disorder Encounter for smoking cessation counseling Kidney stone Calculus of kidney Adrenal mass 1 cm to 4 cm in diameter ([facility]) Radiculopathy, lumbar region Thoracic or lumbosacral neuritis or radiculitis, unspecified Non-seasonal allergic rhinitis, unspecified trigger Type 2 diabetes mellitus with unspecified complications Anxiety and depression ([facility])- Primary Morbid (severe) obesity due to excess calories ([facility]) Body mass index (BMI) 50.0-59.9, adult ([facility]) Malignant neoplasm of cervix uteri, unspecified Diabetic polyneuropathy associated with type 2 diabetes mellitus ([facility]) Chronic diastolic heart failure ([facility]) Chronic diastolic heart failure Primary hypertension ([facility]) Unspecified essential hypertension 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 Gastroesophageal reflux disease, unspecified whether esophagitis present Bilateral lower extremity edema Type 2 diabetes mellitus with complication, with long-term current use of insulin ([facility]) Tobacco user Tobacco use disorder Mixed hyperlipidemia ([facility]) Mixed hyperlipidemia Gout, unspecified cause, unspecified chronicity, unspecified site Vitamin deficiency Unspecified vitamin deficiency Gastro-esophageal reflux disease without esophagitis Edema, unspecified Edema Hyperlipidemia, unspecified ([facility]) Encounter for smoking cessation counseling Venous ulcer of right leg ([facility]) Antibiotic-induced yeast infection Primary hypertension ([facility])- Primary Unspecified essential hypertension Diabetic polyneuropathy associated with type 2 diabetes mellitus ([facility]) Chronic diastolic heart failure ([facility]) Chronic diastolic heart failure Bilateral lower extremity edema Morbid (severe) obesity due to excess calories ([facility]) Type 2 diabetes mellitus with complication, with long-term current use of insulin ([facility]) Anxiety and depression ([facility]) Cigarette nicotine dependence without complication Encounter for screening mammogram for malignant neoplasm of breast Insomnia Insomnia, unspecified Non-seasonal allergic rhinitis, unspecified trigger Type 2 diabetes mellitus with unspecified complications Vitamin D deficiency, unspecified Gastro-esophageal reflux disease without esophagitis PAD (peripheral artery disease) ([facility]) Unspecified peripheral vascular disease Gastroesophageal reflux disease, unspecified whether esophagitis present Venous ulcer of right leg ([facility]) Cellulitis of left lower extremity- Primary COPD exacerbation ([facility]) Obstructive chronic bronchitis with exacerbation Primary hypertension ([facility]) Unspecified essential hypertension Pulmonary hypertension ([facility]) Other chronic pulmonary heart diseases Morbid (severe) obesity due to excess calories ([facility]) Type 2 diabetes mellitus with complication, with long-term current use of insulin ([facility]) Anxiety and depression ([facility]) Fever, unspecified fever cause documented in this encounter [facility] HealthcareEvaluation note* Diagnosis Obstructive sleep apnea- Primary Obstructive sleep apnea (adult) (pediatric) Pulmonary emphysema, unspecified emphysema type (HCC) Primary hypertension Unspecified essential hypertension Type 2 diabetes mellitus with complication, with long-term current use of insulin ([facility]) Anxiety and depression Bilateral lower extremity edema Pulmonary emphysema, unspecified emphysema type (HCC)- Primary Primary hypertension Unspecified essential hypertension Class 3 severe obesity with serious comorbidity and body mass index (BMI) of 50.0 to 59.9 in adult, unspecified obesity type ([facility]) Obstructive sleep apnea Obstructive sleep [...] to 59.9 in adult, unspecified obesity type ([facility] [place]) Encounter for subsequent annual wellness visit (AWV) in Medicare patient- Primary Type 2 diabetes mellitus with unspecified complications (HCC) Pulmonary emphysema, unspecified emphysema type ([facility]) Moderate persistent asthma without complication (HCC) Primary hypertension Unspecified essential hypertension Type 2 diabetes mellitus with complication, with long-term current use of insulin ([facility]) Class 3 severe obesity with serious comorbidity and body mass index (BMI) of 50.0 to 59.9 in adult, unspecified obesity type ([facility] [place]) Tobacco user Tobacco use disorder Other headache syndrome Malignant neoplasm of cervix uteri, unspecified ([facility]) Other specified disorders of adrenal gland ([facility]) Major depressive disorder, single episode, mild Major depressive disorder, single episode, mild 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 exposed ([facility]) Chronic respiratory failure, unspecified whether with hypoxia or hypercapnia ([facility]) Disorder of adrenal gland, unspecified ([facility]) Non-pressure chronic ulcer of other part of right lower leg limited to breakdown of skin ([facility]) Non-recurrent acute suppurative otitis media of left ear without spontaneous rupture of tympanic membrane Primary hypertension- Primary Unspecified essential hypertension Insomnia Insomnia, unspecified Type 2 diabetes mellitus with complication, with long-term current use of insulin ([facility]) Non-seasonal allergic rhinitis, unspecified trigger Type 2 diabetes mellitus with unspecified complications ([facility]) Anxiety and depression Gastro-esophageal reflux disease without esophagitis Edema, unspecified Edema Diabetic polyneuropathy associated with type 2 diabetes mellitus ([facility]) Chronic obstructive pulmonary disease, unspecified (HCC) Pulmonary emphysema, unspecified emphysema type ([facility]) Bilateral lower extremity edema Tobacco user Tobacco use disorder Hyperpigmentation of skin Other dyschromia Primary hypertension- Primary Unspecified essential hypertension Diabetic polyneuropathy associated with type 2 diabetes mellitus ([facility]) Pulmonary emphysema, unspecified emphysema type ([facility]) Critical limb ischemia of right lower extremity ([facility]) PAD (peripheral artery disease) Unspecified peripheral vascular disease Gastroesophageal reflux disease, unspecified whether esophagitis present Bilateral lower extremity edema Venous ulcer of right leg ([facility]) Type 2 diabetes mellitus with complication, with long-term current use of insulin ([facility]) Tobacco user Tobacco use disorder Encounter for smoking cessation counseling Kidney stone Calculus of kidney Adrenal mass 1 cm to 4 cm in diameter ([facility]) Radiculopathy, lumbar region Thoracic or lumbosacral neuritis or radiculitis, unspecified Non-seasonal allergic rhinitis, unspecified trigger Type 2 diabetes mellitus with unspecified complications ([facility]) Anxiety and depression- Primary Morbid (severe) obesity due to excess calories ([facility]) Body mass index (BMI) 50.0-59.9, adult ([facility]) Malignant neoplasm of cervix uteri, unspecified (HCC) Diabetic polyneuropathy associated with type 2 diabetes mellitus (HCC) Chronic diastolic heart failure (HCC) Chronic diastolic heart failure Primary hypertension Unspecified essential hypertension 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 ([facility]) Gastroesophageal reflux disease, unspecified whether esophagitis present Bilateral lower extremity edema Type 2 diabetes mellitus with complication, with long-term current use of insulin ([facility]) Tobacco user Tobacco use disorder [...] (severe) obesity due to excess calories ([facility]) Type 2 diabetes mellitus with complication, with long-term current use of insulin (HCC) Anxiety and depression Cigarette nicotine dependence without complication Encounter for screening mammogram for malignant neoplasm of breast Insomnia Insomnia, unspecified Non-seasonal allergic rhinitis, unspecified trigger Type 2 diabetes mellitus with unspecified complications ([facility]) Vitamin D deficiency, unspecified Gastro-esophageal [...] (severe) obesity due to excess calories ([facility]) Type 2 diabetes mellitus with complication, with long-term current use of insulin ([facility]) Anxiety and depression Fever, unspecified [...] (severe) obesity due to excess calories ([facility]) Type 2 diabetes mellitus with hyperglycemia, with long-term current use of insulin ([facility]) documented in this encounter [facility] [...] 59.9 in adult, unspecified obesity type ([facility]) Obstructive sleep apnea Obstructive sleep [...] polyneuropathy associated with type 2 diabetes mellitus ([facility]) Gout, unspecified cause, unspecified chronicity, [...] to 59.9 in adult, unspecified obesity type ([facility]) Encounter for subsequent annual wellness visit (AWV) in Medicare patient- Primary Type 2 diabetes mellitus with unspecified complications ([facility]) Pulmonary emphysema, unspecified emphysema type ([facility]) Moderate persistent asthma without complication (HCC) Primary hypertension Unspecified essential hypertension Type 2 diabetes mellitus with complication, with long-term current use of insulin ([facility]) Class 3 severe obesity with serious comorbidity and body mass index (BMI) of 50.0 to 59.9 in adult, unspecified obesity type ([facility]) Tobacco user Tobacco use disorder Other headache syndrome Malignant neoplasm of cervix uteri, unspecified ([facility]) Other specified disorders of adrenal gland ([facility]) Major depressive disorder, single episode, mild Major depressive disorder, single episode, mild 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 exposed ([facility]) Chronic respiratory failure, unspecified whether with hypoxia or hypercapnia ([facility]) Disorder of adrenal gland, unspecified ([facility]) Non-pressure chronic ulcer of other part of right lower leg limited to breakdown of skin ([facility]) Non-recurrent acute suppurative otitis media of left ear without spontaneous rupture of tympanic membrane Primary hypertension- Primary Unspecified essential hypertension Insomnia Insomnia, unspecified Type 2 diabetes mellitus with complication, with long-term current use of insulin ([facility]) Non-seasonal allergic rhinitis, unspecified trigger Type 2 diabetes mellitus with unspecified complications ([facility]) Anxiety and depression Gastro-esophageal reflux disease without esophagitis Edema, unspecified Edema Diabetic polyneuropathy associated with type 2 diabetes mellitus ([facility]) Chronic obstructive pulmonary disease, unspecified ([facility]) Pulmonary emphysema, unspecified emphysema type ([facility]) Bilateral lower extremity edema Tobacco user Tobacco use disorder Hyperpigmentation of skin Other dyschromia Primary hypertension- Primary Unspecified essential hypertension Diabetic polyneuropathy associated with type 2 diabetes mellitus ([facility]) Pulmonary emphysema, unspecified emphysema type ([facility]) Critical limb ischemia of right lower extremity ([facility]) PAD (peripheral artery disease) Unspecified peripheral vascular disease Gastroesophageal reflux disease, unspecified whether esophagitis present Bilateral lower extremity edema Venous ulcer of right leg ([facility]) Type 2 diabetes mellitus with complication, with long-term current use of insulin ([facility]) Tobacco user Tobacco use disorder Encounter for smoking cessation counseling Kidney stone Calculus of kidney Adrenal mass 1 cm to 4 cm in diameter ([facility]) Radiculopathy, lumbar region Thoracic or lumbosacral neuritis or radiculitis, unspecified Non-seasonal allergic rhinitis, unspecified trigger Type 2 diabetes mellitus with unspecified complications ([facility]) Anxiety and depression- Primary Morbid (severe) obesity due to excess calories ([facility]) Body mass index (BMI) 50.0-59.9, adult ([facility]) Malignant neoplasm of cervix uteri, unspecified (HCC) Diabetic polyneuropathy associated with type 2 diabetes mellitus ([facility]) Chronic diastolic heart failure (HCC) Chronic diastolic heart failure Primary hypertension Unspecified essential hypertension 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 ([facility]) Gastroesophageal reflux disease, unspecified whether esophagitis present Bilateral lower extremity edema Type 2 diabetes mellitus with complication, with long-term current use of insulin ([facility]) Tobacco user Tobacco use disorder Mixed hyperlipidemia Mixed hyperlipidemia Gout, unspecified cause, unspecified chronicity, unspecified site Vitamin deficiency Unspecified vitamin deficiency Gastro-esophageal reflux disease without esophagitis Edema, unspecified Edema Hyperlipidemia, unspecified Encounter for smoking cessation counseling Venous ulcer of right leg ([facility]) Antibiotic-induced yeast infection Primary hypertension- Primary Unspecified essential hypertension Diabetic polyneuropathy associated with type 2 diabetes mellitus (HCC) Chronic diastolic heart failure (HCC) Chronic diastolic heart failure Bilateral lower extremity edema Morbid (severe) obesity due to excess calories ([facility]) Type 2 diabetes mellitus with complication, with long-term current use of insulin ([facility]) Anxiety and depression Cigarette nicotine dependence without complication Encounter for screening mammogram for malignant neoplasm of breast Insomnia Insomnia, unspecified Non-seasonal allergic rhinitis, unspecified trigger Type 2 diabetes mellitus with unspecified complications ([facility]) Vitamin D deficiency, unspecified Gastro-esophageal reflux disease without esophagitis PAD (peripheral artery disease) Unspecified peripheral vascular disease Gastroesophageal reflux disease, unspecified whether esophagitis present Venous ulcer of right leg (HCC) Cellulitis of left lower extremity- Primary COPD exacerbation ([facility]) Obstructive chronic bronchitis with exacerbation Primary hypertension Unspecified essential hypertension Pulmonary hypertension (HCC) Other chronic pulmonary heart diseases Morbid (severe) obesity due to excess calories ([facility]) Type 2 diabetes mellitus with complication, with long-term current use of insulin ([facility]) Anxiety and depression Fever, unspecified [...] Morbid (severe) obesity due to excess calories ([facility]) Encounter for dietary consultation- Primary Type 2 diabetes mellitus with hyperglycemia, with long-term current use of insulin ([facility]) Vitamin D deficiency Primary hypertension Unspecified essential hypertension Insulin long-term use ([facility]) Encounter for long-term (current) use of insulin Hyperlipemia, mixed Mixed hyperlipidemia Microalbuminuria Proteinuria Class 3 severe obesity due to excess calories with serious comorbidity and body mass index (BMI) of 50.0 to 59.9 in adult ([facility] [place] [facility]) documented in this encounter [facility] HealthcareEvaluation note* Diagnosis Obstructive sleep apnea- Primary Obstructive sleep apnea (adult) (pediatric) Pulmonary emphysema, unspecified emphysema type (HCC) Primary hypertension Unspecified essential hypertension Type 2 diabetes mellitus with complication, with long-term current use of insulin ([facility]) Anxiety and depression Bilateral lower extremity edema Pulmonary emphysema, unspecified emphysema type (HCC)- Primary Primary hypertension Unspecified essential hypertension Class 3 severe obesity with serious comorbidity and body mass index (BMI) of 50.0 to 59.9 in adult, unspecified obesity type ([facility] [place] [facility]) Obstructive sleep apnea Obstructive sleep apnea (adult) (pediatric) Pulmonary hypertension (HCC) Other chronic pulmonary heart diseases Tobacco user Tobacco use disorder Cardiomegaly Primary hypertension- Primary Unspecified essential hypertension Gastroesophageal reflux disease, unspecified whether esophagitis present Type 2 diabetes mellitus with complication, with long-term current use of insulin ([facility]) Mixed hyperlipidemia Mixed hyperlipidemia Tobacco user Tobacco use disorder Encounter for screening mammogram for malignant neoplasm of breast Chronic obstructive pulmonary disease, unspecified (HCC) Other specified chronic obstructive pulmonary disease (HCC) Anxiety and depression Edema, unspecified Edema Hyperlipidemia, unspecified Diabetic polyneuropathy associated with type 2 diabetes mellitus ([facility]) Gout, unspecified cause, unspecified chronicity, [...] to 59.9 in adult, unspecified obesity type ([facility] [place] [facility]) Encounter for subsequent annual wellness visit (AWV) in Medicare patient- Primary Type 2 diabetes mellitus with unspecified complications (HCC) Pulmonary emphysema, unspecified emphysema type ([facility]) Moderate persistent asthma without complication (HCC) Primary hypertension Unspecified essential hypertension Type 2 diabetes mellitus with complication, with long-term current use of insulin ([facility]) Class 3 severe obesity with serious comorbidity and body mass index (BMI) of 50.0 to 59.9 in adult, unspecified obesity type ([facility] [place]) Tobacco user Tobacco use disorder Other headache syndrome Malignant neoplasm of cervix uteri, unspecified (HCC) Other specified disorders of adrenal gland (HCC) Major depressive disorder, single episode, mild Major depressive disorder, single episode, mild 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 exposed ([facility]) Chronic respiratory failure, unspecified whether [...] polyneuropathy associated with type 2 diabetes mellitus ([facility]) Pulmonary emphysema, unspecified emphysema type (HCC) Critical limb ischemia of right lower extremity ([facility]) PAD (peripheral artery disease) Unspecified peripheral vascular disease Gastroesophageal reflux disease, unspecified whether esophagitis present Bilateral lower extremity edema Venous ulcer of right leg ([facility]) Type 2 diabetes mellitus with complication, with long-term current use of insulin ([facility]) Tobacco user Tobacco use disorder Encounter for smoking cessation counseling Kidney stone Calculus of kidney Adrenal mass 1 cm to 4 cm in diameter ([facility]) Radiculopathy, lumbar region Thoracic or lumbosacral neuritis or radiculitis, unspecified Non-seasonal allergic rhinitis, unspecified trigger Type 2 diabetes mellitus with unspecified complications ([facility]) Anxiety and depression- Primary Morbid (severe) obesity due to excess calories ([facility]) Body mass index (BMI) 50.0-59.9, adult ([facility]) Malignant neoplasm of cervix uteri, unspecified ([facility]) Diabetic polyneuropathy associated with type 2 diabetes mellitus ([facility]) Chronic diastolic heart failure ([facility]) Chronic diastolic heart failure Primary hypertension Unspecified essential hypertension 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 ([facility]) Gastroesophageal reflux disease, unspecified whether esophagitis present Bilateral lower extremity edema Type 2 diabetes mellitus with complication, with long-term current use of insulin ([facility]) Tobacco user Tobacco use disorder Mixed hyperlipidemia Mixed hyperlipidemia Gout, unspecified cause, unspecified chronicity, unspecified site Vitamin deficiency Unspecified vitamin deficiency Gastro-esophageal reflux disease without esophagitis Edema, unspecified Edema Hyperlipidemia, unspecified Encounter for smoking cessation counseling Venous ulcer of right leg ([facility]) Antibiotic-induced yeast infection Primary hypertension- Primary Unspecified essential hypertension Diabetic polyneuropathy associated with type 2 diabetes mellitus ([facility]) Chronic diastolic heart failure (HCC) Chronic diastolic heart failure Bilateral lower extremity edema Morbid (severe) obesity due to excess calories ([facility]) Type 2 diabetes mellitus with complication, with long-term current use of insulin ([facility]) Anxiety and depression Cigarette nicotine dependence without complication Encounter for screening mammogram for malignant neoplasm of breast Insomnia Insomnia, unspecified Non-seasonal allergic rhinitis, unspecified trigger Type 2 diabetes mellitus with unspecified complications ([facility]) Vitamin D deficiency, unspecified Gastro-esophageal reflux disease without esophagitis PAD (peripheral artery disease) Unspecified peripheral vascular disease Gastroesophageal reflux disease, unspecified whether esophagitis present Venous ulcer of right leg ([facility]) Cellulitis of left lower extremity- Primary COPD exacerbation ([facility]) Obstructive chronic bronchitis with exacerbation Primary hypertension Unspecified essential hypertension Pulmonary hypertension (HCC) Other chronic pulmonary heart diseases Morbid (severe) obesity due to excess calories ([facility]) Type 2 diabetes mellitus with complication, with [...] (severe) obesity due to excess calories ([facility]) Tobacco user Tobacco use disorder [...] History sepsis 2010 Hospitalization History SEE ABOVE [id number] Other Hospital course Narrative No data available for this section [facility] Wilfredo progress note No data available for this section [facility] [employer] reason for referral (narrative) , Referral to Dr. 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 Summary Purpose Family History No Family History Records FoundNo Family History Records FoundNo Family History Records FoundNo Family History Records Found No data available for this section No Family History Records FoundNo Family History Records FoundNo Family History Records Found Additional Source Comments INFORMATION SOURCE (unrecogn ized section and content) DATE CREATED AUTHOR 10/30/2019 [facility] [employer] [facility] DATE CREATED AUTHOR AUTHOR'S ORGANIZ ATION 09/15/2020 [facility] DATE CREATED AUTHOR AUTHOR'S ORGANIZ ATION 12/19/2022 [facility] DATE CREATED AUTHOR AUTHOR'S ORGANIZ ATION [facility]/03/2024 [facility] DATE CREATED AUTHOR AUTHOR'S ORGANIZ ATION 01/30/2025 [facility] DATE CREATED AUTHOR AUTHOR'S ORGANIZ ATION 02/06/2025 [facility] DATE CREATED AUTHOR AUTHOR'S ORGANIZ ATION 03/25/2025 [facility] Care Team (unrecognized sect ion and content) Inbound Sales Advisor Relationship Specialty Start Date End Date Ty Amin MD PCP - General Family Medicine 01/05/23 Inbound Sales Advisor Relationship Specialty Start Date End Date Ty Amin MD PCP - General Family Medicine 01/05/23 Inbound Sales Advisor Relationship Specialty Start Date End Date Ty Amin MD [address] [place] [address] PCP - General Family Medicine 09/20/23 Mckayla Blas NP [address] [place] [address] PCP - [facility] 09/07/23 09/05/90 Mckayla Blas NP [address] [place] [address] Nurse Practitioner Family Medicine 09/20/23 Inbound Sales Advisor Relationship Specialty Start Date End Date Ty Amin MD [address] [place] [phone] PCP - General Family Medicine 09/20/23 Mckayla Blas NP [address] [place] [address] PCP - [facility] 09/07/23 09/05/90 Mckayla Blas NP [address] [place] [address] Nurse Practitioner Family Medicine 09/20/23 Inbound Sales Advisor Relationship Specialty Start Date End Date Ty Amin MD [address] [place] [phone] PCP - General Family Medicine 09/20/23 Mckayla Blas NP [address] [place] [phone] PCP [facility] 09/07/23 09/05/90 Mckayla Blas NP [address] [place] [phone] Nurse Practitioner Family Medicine 09/20/23 Inbound Sales Advisor Relationship Specialty Start Date End Date Ty Amin MD [address] [place] [phone] PCP - General Family Medicine 09/20/23 Mckayla Blas NP [address] [place] [address] PCP - [facility] 09/07/23 09/05/90 Mckayla Blas NP [address] [place] [address] Nurse Practitioner Family Medicine 09/20/23 Inbound Sales Advisor Relationship Specialty Start Date End Date Ty Amin MD [address] [place] [address] PCP - General Family Medicine 09/20/23 Mckayla Blas NP [address] [place] [address] PCP - [facility] 09/07/23 09/05/90 Mckayla Blas NP [address] [place] [address] Nurse Practitioner Family Medicine 09/20/23 Inbound Sales Advisor Relationship Specialty Start Date End Date Ty Amin MD [address] [place] [address] PCP - General Family Medicine 09/20/23 Mckayla Blas NP [address] [place] [address] PCP [facility] 09/07/23 09/05/90 Mckayla Blas NP [address] [place] [address] Nurse Practitioner Family Medicine 09/20/23 Inbound Sales Advisor Relationship Specialty Start Date End Date Ty Amin MD [address] [place] [address] PCP - General Family Medicine 09/20/23 Mckayla Blas NP [address] [place] [address] PCP - [facility] 09/07/23 09/05/90 Mckayla Blas NP [address] [place] [address] Nurse Practitioner Family Medicine 09/20/23 Inbound Sales Advisor Relationship Specialty Start Date End Date Ty Amin MD [address] [place] [phone] PCP - General Family Medicine 09/20/23 Mckayla Blas NP [address] [place] [address] PCP [facility] 09/07/23 09/05/90 Mckayla Blas NP [address] [place] [address] Nurse Practitioner Family Medicine 09/20/23 Inbound Sales Advisor Relationship Specialty Start Date End Date Ty Amin MD [address] [place] [address] PCP - General Family Medicine 09/20/23 Mckayla Blas NP [address] [place] [address] PCP - [facility] 09/07/23 09/05/90 Mckayla Blas NP [address] [place] [address] Nurse Practitioner Family Medicine 09/20/23 Inbound Sales Advisor Relationship Specialty Start Date End Date Ty Amin MD [address] [place] [phone] PCP - General Family Medicine 09/20/23 Mckayla Blas NP [address] [place] [address] PCP - [facility] 09/07/23 09/05/90 Mckayla Blas NP [address] [place] [address] Nurse Practitioner Family Medicine 09/20/23 Inbound Sales Advisor Relationship Specialty Start Date End Date Ty Amin MD [address] [place] [address] PCP - General Family Medicine 09/20/23 Mckayla Blas NP [address] [place] [address] PCP [facility] 09/07/23 09/05/90 Mckayla Blas NP [address] [place] [address] Nurse Practitioner Family Medicine 09/20/23 Inbound Sales Advisor Relationship Specialty Start Date End Date Ty Amin MD [address] [place] [address] PCP - General Family Medicine 09/20/23 Mckayla Blas NP [address] [place] [address] PCP - [facility] 09/07/23 09/05/90 Mckayla Blas NP [address] [place] [address] Nurse Practitioner Family Medicine 09/20/23 Inbound Sales Advisor Relationship Specialty Start Date End Date Ty Amin MD [address] [place] [address] PCP - General Family Medicine 09/20/23 Mckayla Blas NP [address] [place] [address] PCP [facility] 09/07/23 09/05/90 Mckayla Blas NP [address] [place] [address] Nurse Practitioner Family Medicine 09/20/23 Inbound Sales Advisor Relationship Specialty Start Date End Date Ty Amin MD [address] [place] [address] PCP - General Family Medicine 09/20/23 Mckayla lBas NP [address] [place] [address] PCP - [facility] 09/07/23 09/05/90 Mckayla Blas NP [address] [place] [address] Nurse Practitioner Family Medicine 09/20/23 Inbound Sales Advisor Relationship Specialty Start Date End Date Ty Amin MD [address] [place] [address] PCP - General Family Medicine 09/20/23 Mckayla Blas NP [address] [place] [address] PCP - [facility] 09/07/23 09/05/90 Mckayla Blas NP [address] [place] [address] Nurse Practitioner Family Medicine 09/20/23 Inbound Sales Advisor Relationship Specialty Start Date End Date Ty Amin MD [address] [place] [address] PCP - General Family Medicine 09/20/23 Mckayla Blas NP [address] [place] [address] PCP [facility] 09/07/23 09/05/90 Mckayla Blas NP [address] [place] [address] Nurse Practitioner Family Medicine 09/20/23 Inbound Sales Advisor Relationship Specialty Start Date End Date Ty Amin MD [address] [place] [phone] PCP - General Family Medicine 09/20/23 Mckayla Blas NP [address] [place] [address] PCP - [facility] 09/07/23 09/05/90 Mckayla Blas NP [address] [place] [address] Nurse Practitioner Family Medicine 09/20/23 Inbound Sales Advisor Relationship Specialty Start Date End Date Ty Amin MD [address] [place] [phone] PCP - General Family Medicine 09/20/23 Mckayla Blas NP [address] [place] [phone] PCP [facility] 09/07/23 09/05/90 Mckayla Blas NP [address] [place] [phone] Nurse Practitioner Family Medicine 09/20/23 Inbound Sales Advisor Relationship Specialty Start Date End Date Ty Amin MD [address] [place] [address] PCP - General Family Medicine 09/20/23 Mckayla Blas NP [address] [place] [address] PCP - [facility] 09/07/23 09/05/90 Mckayla Blas NP [address] [place] [address] Nurse Practitioner Family Medicine 09/20/23 Inbound Sales Advisor Relationship Specialty Start Date End Date Ty Amin MD [address] [place] [address] PCP - General Family Medicine 09/20/23 Mckayla Blas NP [address] [place] [address] [facility] 09/07/23 09/05/90 Mckayla Blas NP [address] [place] [address] Nurse Practitioner Family Medicine 09/20/23 Inbound Sales Advisor Relationship Specialty Start Date End Date Ty Amin MD [address] [place] [address] PCP - General Family Medicine 09/20/23 Mckayla Blas NP [address] [place] [address] Nurse Practitioner Family Medicine 09/20/23 Inbound Sales Advisor Relationship Specialty Start Date End Date Ty Amin MD [address] [place] [address] PCP - General Family Medicine 09/20/23 Mckayla Blas NP [address] [place] [address] Nurse Practitioner Family Medicine 09/20/23 Inbound Sales Advisor Relationship Specialty Start Date End Date Ty Amin MD [address] [place] [address] PCP - General Family Medicine 09/20/23 Mckayla Blas NP [address] [place] [address] Nurse Practitioner Family Medicine 09/20/23 Inbound Sales Advisor Relationship Specialty Start Date End Date Ty Amin MD [address] [place] [address] PCP - General Family Medicine 09/20/23 Mckayla Blas NP [address] [place] [address] Nurse Practitioner Family Medicine 09/20/23 Inbound Sales Advisor Relationship Specialty Start Date End Date Ty Amin MD [address] [place] [address] PCP - General Family Medicine 09/20/23 Mckayla Blas NP [address] [place] [address] Nurse Practitioner Family Medicine 09/20/23 REASON FOR [...] BE BASED ON THE PRIMARY CLINICAL RECORDS. [facility] [employer] [facility]. provides no warranty or guarantee of the accuracy or completeness of information in this document.
--- NOTE | 2025-03-25 16:57 | CT_ITS ---
The [address] [address] Patient Name: SINA NICHOLE MRN: [id number] date: 1970 Sex: F Assigned Patient Location: ER Current Patient Location: ER Accession/Order Number: [id number] Exam Date: 03/25/2025 17:48 Report Date: 03/25/2025 18:25 At the request of: DAVID LEVY MD Procedure: CT abdomen pelvis w con CT abdomen pelvis w con 03/25/2025 5:54 PM SIGNS AND SYMPTOMS: Right lower abdominal pain, firm area along the right side of the abdominal pannus TECHNIQUE: Multidetector ct axial images of the abdomen and pelvis were obtained without with IV contrast. Multiplanar reformats were performed and reviewed to further define anatomy and possible pathology. CT was performed with one or more of the following dose reduction techniques: Automated exposure control, adjustment of the mA and/or kV according to patient size, or use of iterative reconstruction technique. COMPARISON: 12/04/2024 FINDINGS: Lower Chest: Atherosclerotic changes are noted in the thoracic aorta. There is atelectasis in the lung bases. ABDOMEN: Liver: Within normal limits. Bile Ducts: Normal caliber. Gallbladder: Previously removed Pancreas: Within normal limits. Spleen: Within normal limits. Adrenals: There is a heterogeneous fat-containing 4.7 cm left adrenal mass suspicious for an adrenal myelolipoma. This is unchanged. Kidneys: There is a 4 mm nonobstructing left renal stone. Pelvis: Reproductive Organs: No pelvic masses. Ureters: Within normal limits. Bladder: Within normal limits. Bowel: Normal caliber. There is a normal appendix in the right lower quadrant. Mesenteric Lymph Nodes: No enlarged mesenteric lymph nodes. Peritoneum: No ascites or free air, no fluid collection. Vessels: Atherosclerotic changes are noted in the abdominal aorta and its branches. Retroperitoneum: Within normal limits. Abdominal Wall: There is anasarca along the abdominal wall extending into the thalamus suggesting panniculitis. There is no evidence of fluid collection. The anterior and lateral abdominal wall is incompletely visualized however. Bones: Degenerative changes are noted in the thoracolumbar spine and sacroiliac joints. Severe degenerative changes are noted in the right hip. CT/CT abdomen pelvis w con IMPRESSION: There is anasarca along the abdominal wall extending into the thalamus suggesting panniculitis. There is no evidence of fluid collection. The anterior and lateral abdominal wall is incompletely visualized however. This is slightly worse when compared to the prior exam. No bowel obstruction or obstructive uropathy. There is a nonobstructing left renal stone. Additional chronic findings are noted as above. Impression dictated by: Tramaine Chirinos M.D. 03/25/2025 6:25 PM Dictation Location: [place] [address] Electronically authenticated by: [id number] Y Date: 03/25/2025 18:25
[2025-03-25 17:02] VITALS: O2SAT 95
--- NOTE | 2025-03-25 17:06 | ED.GENADUL1 ---
HPI HPI - General Adult General Chief complaint: Abdominal Pain Stated complaint: LARGE SPOT ON ABDOMEN THAT CAUSES PAIN IN BACK Time Seen by Provider: 03/25/25 16:42 Source: patient Mode of arrival: Wheelchair History of Present Illness HPI narrative: 54-year-old female presents to the emergency department for firmness on the right side of her abdomen. She points to the right pannus to indicate this area of firmness. She gives no history of any injury or fever or drainage and has not noticed any redness. She states she has had it for a week. She also has some mild pain in her right flank as well. Related Data Home Medications ?Medication ?Instructions ?Recorded ?Confirmed acetaminophen 500 mg capsule 1,000 mg PO Q6H PRN fever or pain 03/20/23 12/04/24 amitriptyline 25 mg tablet 25 mg PO DAILY 03/20/23 12/04/24 aspirin 81 mg tablet,delayed 81 mg PO DAILY 03/20/23 12/04/24 release (Adult Aspirin Regimen) budesonide-formoterol HFA 160 2 inh inhalation BID 03/20/23 12/04/24 mcg-4.5 mcg/actuation aerosol inhaler (Symbicort) furosemide 40 mg tablet 40 mg PO DAILY 03/20/23 12/04/24 insulin aspart U-100 100 unit/mL 1 sliding scale dose subcut 03/20/23 12/04/24 (3 mL) subcutaneous pen (Novolog USEASDIRECTD FlexPen U-100 Insulin aspart) insulin glargine 100 unit/mL 58 unit subcut BID 03/20/23 12/04/24 subcutaneous solution (Lantus U-100 Insulin) lisinopril 20 mg tablet 20 mg PO DAILY 03/20/23 12/04/24 omeprazole 20 mg capsule,delayed 20 mg PO DAILY 03/20/23 12/04/24 release pregabalin 300 mg capsule 300 mg PO Q12H 03/20/23 12/04/24 dapagliflozin propanediol 10 mg 10 mg PO .QD 09/10/23 12/04/24 tablet ergocalciferol (vitamin D2) 1,250 50,000 unit PO QWEEK 09/10/23 12/04/24 mcg (50,000 unit) capsule potassium chloride 10 mEq 10 meq PO .QD 09/10/23 12/04/24 capsule,extended release simvastatin 10 mg tablet 10 mg PO QAM 09/10/23 12/04/24 baclofen 10 mg tablet 10 mg PO TID 06/24/24 12/04/24 ammonium lactate 12 % lotion 1 applic topical DAILY 12/04/24 12/05/24 Previous Rx's ?Medication ?Instructions ?Recorded duloxetine 60 mg capsule,delayed 60 mg PO BID #60 caps 04/05/23 release hydralazine 25 mg tablet 25 mg PO BID #60 tabs 09/13/23 oseltamivir 75 mg capsule 75 mg PO BID #6 caps 09/13/23 amoxicillin 875 mg-potassium 1 tab PO Q12H #20 tabs 12/05/24 clavulanate 125 mg tablet prednisone 10 mg tablet 40 mg (4 x 10 mg) PO DAILY #32 tabs 12/05/24 hydrocodone 5 mg-acetaminophen 325 See Rx Instructions .Route 12/11/24 mg tablet .COMPLEX PRN pain #80 tabs pregabalin 150 mg capsule (Lyrica) 150 mg PO DAILY #30 caps 12/11/24 diclofenac sodium 75 mg 75 mg PO BID PRN pain #60 tabs 01/07/25 tablet,delayed release hydrocodone 5 mg-acetaminophen 325 1 tab PO TID PRN pain #80 tabs 01/07/25 mg tablet pregabalin 150 mg capsule (Lyrica) 150 mg PO DAILY #30 caps 01/07/25 baclofen 10 mg tablet See Rx Instructions .Route 01/15/25 .COMPLEX PRN muscle spasm #90 tabs hydrocodone 5 mg-acetaminophen 325 See Rx Instructions .Route 02/11/25 mg tablet .COMPLEX PRN pain #80 tabs pregabalin 150 mg capsule (Lyrica) 150 mg PO DAILY #30 caps 02/11/25 pregabalin 300 mg capsule (Lyrica) 300 mg PO BID #60 caps 02/25/25 hydrocodone 5 mg-acetaminophen 325 1 tab PO TID PRN pain #80 tabs 03/13/25 mg tablet pregabalin 150 mg capsule (Lyrica) 150 mg PO DAILY #30 caps 03/13/25 amoxicillin 875 mg-potassium 1 tab PO BID #14 tabs 03/25/25 clavulanate 125 mg tablet Allergies Allergy/AdvReac Type Severity Reaction Status Date / Time No Known Drug Allergies Allergy Verified 06/10/24 08:21 Opioid HPI Opioid Management Most Recent Opioid Data: Last Pain Scale 5 Today, 17:00 Last Pain Intensity 0 09/12/23, 11:19 Last ORT Total Score 0 12/04/24, 21:57 Last ORT Risk Category Low Risk 12/04/24, 21:57 Review of Systems ROS Narrative A ten point review of systems is negative except as noted above. PFSH PFSH Medical History COPD exacerbation ?J44.1 - Chronic obstructive pulmonary disease with (acute) exacerbation (ICD-10) Influenza A ?J10.1 - Influenza due to other identified influenza virus with other respiratory manifestations (ICD-10) Hypoxia ?R09.02 - Hypoxemia (ICD-10) Hypertension ?I10 - Essential (primary) hypertension (ICD-10) Obesity ?E66.9 - Obesity, unspecified (ICD-10) Amputation toe ?S98.139A - Complete traumatic amputation of one unspecified lesser toe, initial encounter (ICD-10) Neuropathy ?G62.9 - Polyneuropathy, unspecified (ICD-10) Acid reflux ?K21.9 - Gastro-esophageal reflux disease without esophagitis (ICD-10) Diabetes ?E11.9 - Type 2 diabetes mellitus without complications (ICD-10) COPD (chronic obstructive pulmonary disease) ?J44.9 - Chronic obstructive pulmonary disease, unspecified (ICD-10) Asthma ?J45.909 - Unspecified asthma, uncomplicated (ICD-10) High cholesterol ?E78.00 - Pure hypercholesterolemia, unspecified (ICD-10) Surgical History History of hammertoe correction ?Z98.890 - Other specified postprocedural states (ICD-10) ?Z87.39 - Personal history of other diseases of the musculoskeletal system and connective tissue (ICD-10) Hx of cholecystectomy ?Z90.49 - Acquired absence of other specified parts of digestive tract (ICD-10) History of hysterectomy ?Z90.710 - Acquired absence of both cervix and uterus (ICD-10) Social History (Updated 12/04/24 @ 22:27 by Comfort Grimaldo RN) Within the past year, how often did you have a drink containing alcohol: never Within the past year, how often did you have six or more drinks on one occasion: never Score interpretation: A score less than 3 is consistent with normal alcohol consumption. Smoking status: Current some day smoker Second hand tobacco smoke exposure: Yes Non-prescribed substance use: denies use Known occupational exposures/hazards: No Highest level of school completed/degree received: Associate degree: occupational, technical, vocational program Are you now , , , , never or living with a partner: Little interest or pleasure in doing things: not at all Feeling down, depressed, or hopeless: not at all Feel stressed/tense/nervous/anxious/difficulty sleeping: not at all Exam Narrative Exam Narrative: Nurses note and vital signs reviewed and patient is not hypoxic. General: The patient appears well and in no apparent distress. Patient is resting comfortably on cart. Skin: Warm, dry, no pallor noted. There is no rash noted. Head: Normocephalic, atraumatic Eye: Normal conjunctiva, no drainage Ears, Nose, Mouth, and Throat: oral mucosa is moist. Nares patent. Cardiovascular: Regular Rate and Rhythm Respiratory: Patient is in no distress, no accessory muscle use, lungs are clear to auscultation, no wheezing, rales or rhonchi Back: non-tender GI: Morbidly obese. Large pannus present. On the right side there is no erythema nor is no erythema elsewhere. On the right pannus is a firm area. It is not fluctuant. Musculoskeletal: The patient has no evidence of calf tenderness, no pitting edema, symmetrical pulses noted bilaterally Neurological: A&O, normal speech Psychiatric: Cooperative Constitutional Vital Signs, click to edit/add: Last Vital Signs Temp 98.9 F 03/25/25 15:23 Pulse 75 03/25/25 15:23 Resp 18 03/25/25 15:23 BP 172/82 H 03/25/25 15:23 Pulse Ox 95 03/25/25 17:02 O2 Del Method Room Air 03/25/25 17:02 Course Vital Signs Vital signs: Vital Signs Temperature 98.9 F 03/25/25 15:23 Pulse Rate 75 03/25/25 15:23 Respiratory Rate 18 03/25/25 15:23 Blood Pressure 172/82 H 03/25/25 15:23 Pulse Oximetry 93 L 03/25/25 15:23 Oxygen Delivery Method Room Air 03/25/25 15:23 Temperature 98.9 F 03/25/25 15:23 Pulse Rate 75 03/25/25 15:23 Respiratory Rate 18 03/25/25 15:23 Blood Pressure 172/82 H 03/25/25 15:23 Pulse Oximetry 95 03/25/25 17:02 Oxygen Delivery Method Room Air 03/25/25 17:02 Medical Decision Making MDM Narrative Medical decision making narrative: CT scan suggest panniculitis. She does not require admission in the hospital and is being discharged home on Augmentin. She will return for worsening symptoms and will follow-up with her PCP in a few days. Treatment diagnosis and follow-up were discussed with the patient. Differential Diagnosis Differential Diagnosis: Cellulitis, abscess, panniculitis Lab Data Lab results reviewed: Yes I reviewed the patient's lab results Labs: Lab Results 03/25/25 03/25/25 Range/Units 17:12 17:16 WBC 11.8 H (4.0-11.0) 10^3/uL RBC 6.33 H (4.20-5.40) 10^6/uL Hgb 17.4 H (12.0-16.0) g/dL Hct 56.6 H (36.0-48.0) % MCV 89.4 (81.0-99.0) fL MCH 27.5 (26.7-34.0) pg MCHC 30.7 (29.9-35.2) g/dL RDW 16.4 H (11.0-15.0) % Plt Count 160 (150-450) 10^3/uL MPV 12.4 (9.5-13.5) fL Neut % (Auto) 65.3 (43.0-75.0) % Lymph % (Auto) 26.4 (20.5-60.0) % [facility] % (Auto) 5.2 (1.7-12.0) % Eos % (Auto) 2.4 (0.9-7.0) % Baso % (Auto) 0.4 (0.2-2.0) % Neut # (Auto) 7.7 H (1.4-6.5) 10^3/uL Lymph # (Auto) 3.1 (1.2-3.8) 10^3/uL [facility] # (Auto) 0.6 (0.3-0.8) 10^3/uL Eos # (Auto) 0.3 (0.0-0.7) 10^3/uL Baso # (Auto) 0.1 (0.0-0.1) 10^3/uL Abs Immat Gran (auto) 0.04 H (0.00-0.03) 10^3/uL Imm/Tot Granulo (auto) 0.3 (0.0-0.5) % Sodium 144 (136-145) mmol/L Potassium 4.0 (3.5-5.1) mmol/L Chloride 106 (98-107) mmol/L Carbon Dioxide 36.9 H (21.0-32.0) mmol/L Anion Gap 5.1 BUN 14.0 (7.0-18.0) mg/dL Creatinine 0.86 (0.55-1.02) mg/dL Est GFR ( Amer) >60 (>=60 mL/min/1.73m^2) Est GFR (Non-Af Amer) >60 (>=60 mL/min/1.73m^2) BUN/Creatinine Ratio 16.3 Glucose 164 H (74-106) mg/dL Calcium 9.2 (8.5-10.1) mg/dL Urine Color Lt. yellow (YELLOW) Urine Clarity Clear (CLEAR) Urine pH 8.0 (5.0-9.0) Ur Specific [place] 1.020 (1.005-1.025) Urine Protein 100 A (NEG/TRACE) mg/dL Urine Glucose (UA) Negative (NEGATIVE) mg/dL Urine Ketones Negative (NEGATIVE) mg/dL Urine Occult Blood Negative (NEGATIVE) Urine Nitrite Negative (NEGATIVE) Urine Bilirubin Negative (NEGATIVE) Urine Urobilinogen 1.0 (0.2-1.0) EU/dL Ur Leukocyte Esterase Negative (NEGATIVE) Urine RBC 0-2 (0-2) #/HPF Urine WBC 0-2 A (NONE SEEN) #/HPF Ur Squamous Epith Cells Few A (NONE/RARE) #/LPF Urine Crystals None seen (None Seen) #/HPF Urine Bacteria Trace A (NONE SEEN) #/HPF Urine Casts Seen A (NONE SEEN) #/LPF Hyaline Casts Rare Urine Mucus Trace A (NONE SEEN) Ur Culture Indicated? No Imaging Data CT scan - abdomen: Radiologist's impression: ITS Impressions Abdomen/Pelvis CT 03/25/25 16:57 IMPRESSION: There is anasarca along the abdominal wall extending into the thalamus suggesting panniculitis. There is no evidence of fluid collection. The anterior and lateral abdominal wall is incompletely visualized however. This is slightly worse when compared to the prior exam. No bowel obstruction or obstructive uropathy. There is a nonobstructing left renal stone. Additional chronic findings are noted as above. Impression dictated by: Tramaine Chirinos M.D. 03/25/2025 6:25 PM Dictation Location: [facility] Electronically authenticated by: [id number] Y Date: 03/25/2025 18:25 Discharge Plan Discharge Chief Complaint: Abdominal Pain Clinical Impression: Panniculitis Patient Disposition: Home, Self-Care Time of Disposition Decision: 18:46 Condition: Good Mode of Transportation: Private Vehicle Prescriptions / Home Meds: New amoxicillin-pot clavulanate 875-125 mg tablet 1 tab PO BID Qty: 14 0RF No Action baclofen 10 mg tablet 10 mg PO TID hydrocodone-acetaminophen 5-325 mg tablet 1 tab PO TID PRN (Reason: pain) Qty: 80 0RF pregabalin [Lyrica] 150 mg capsule 150 mg PO DAILY Qty: 30 0RF diclofenac sodium 75 mg tablet,delayed release (DR/EC) 75 mg PO BID PRN (Reason: pain) Qty: 60 2RF baclofen 10 mg tablet See Rx Instructions .ROUTE .COMPLEX PRN (Reason: muscle spasm) Qty: 90 2RF Rx Instructions: 1/2-1 TABLET TID PRN hydrocodone-acetaminophen 5-325 mg tablet See Rx Instructions .ROUTE .COMPLEX PRN (Reason: pain) Qty: 80 0RF Rx Instructions: 1 TABLET PO BID-TID PRN #80 MUST LAST 30 DAYS pregabalin [Lyrica] 150 mg capsule 150 mg PO DAILY Qty: 30 0RF Rx Instructions: DO NOT FILL TILL 02/13/25 MUST LAST 30 DAYS hydrocodone-acetaminophen 5-325 mg tablet See Rx Instructions .ROUTE .COMPLEX PRN (Reason: pain) Qty: 80 0RF Rx Instructions: 1 TABLET PO BID-TID PRN #80 pregabalin [Lyrica] 150 mg capsule 150 mg PO DAILY Qty: 30 0RF Rx Instructions: MUST LAST 30 DAYS pregabalin [Lyrica] 300 mg capsule 300 mg PO BID Qty: 60 0RF hydrocodone-acetaminophen 5-325 mg tablet 1 tab PO TID PRN (Reason: pain) Qty: 80 0RF pregabalin [Lyrica] 150 mg capsule 150 mg PO DAILY Qty: 30 0RF acetaminophen 500 mg capsule 1,000 mg PO Q6H PRN (Reason: fever or pain) aspirin [Adult Aspirin Regimen] 81 mg tablet,delayed release (DR/EC) 81 mg PO DAILY amitriptyline 25 mg tablet 25 mg PO DAILY insulin glargine [Lantus U-100 Insulin] 100 unit/mL solution 58 unit subcut BID furosemide 40 mg tablet 40 mg PO DAILY lisinopril 20 mg tablet 20 mg PO DAILY pregabalin 300 mg capsule 300 mg PO Q12H insulin aspart U-100 [Novolog FlexPen U-100 Insulin] 100 unit/mL (3 mL) insulin pen 1 sliding scale dose subcut USEASDIRECTD budesonide-formoterol [Symbicort] 160-4.5 mcg/actuation HFA aerosol inhaler 2 inh inhalation BID omeprazole 20 mg capsule,delayed release(DR/EC) 20 mg PO DAILY duloxetine 60 mg capsule,delayed release(DR/EC) 60 mg PO BID Qty: 60 0RF dapagliflozin propanediol 10 mg tablet 10 mg PO .QD ergocalciferol (vitamin D2) 1,250 mcg (50,000 unit) capsule 50,000 unit PO QWEEK potassium chloride 10 mEq capsule, extended release 10 meq PO .QD simvastatin 10 mg tablet 10 mg PO QAM hydralazine 25 mg Tablet 25 mg PO BID Qty: 60 11RF oseltamivir 75 mg Capsule 75 mg PO BID Qty: 6 0RF Protocol: Tamiflu (1-12 yrs) Condition: Weight < 15kg Dose/Route: 30 mg Instruction: PO Condition: Weight 15-23 kg Dose/Route: 45 mg Instruction: PO Condition: Weight 24-40 kg Dose/Route: 60 mg Instruction: PO Condition: Weight > 41 kg Dose/Route: 75 mg Instruction: PO ammonium lactate 12 % lotion 1 applic TOPICAL DAILY Rx Instructions: apply to bilateral feet prednisone 10 mg tablet 40 mg PO DAILY Qty: 32 0RF Rx Instructions: 5/day for 3 days. 4/day for 3 days, 3/day for 3 days, 2/day for 3 days, 1/day for 3 days, 1/2 /day for 4 days amoxicillin-pot clavulanate 875-125 mg tablet 1 tab PO Q12H Qty: 20 0RF Print Language: Marshallese Instructions: Edema (ED) Additional Instructions: See your PCP within a week. Return to ED if symptoms worsen. Referrals: Mckayla Blas NP [Primary Care Provider, Family Practice] - 1 week
[2025-03-25 17:24] LABS: Hematocrit 56.6 % (36.0-48.0); Hemoglobin 17.4 g/dL (12.0-16.0); Immature Granulocytes Abs Auto 0.04 10^3/uL (0.00-0.03); Immature Granulocytes Pct Auto 0.3 % (0.0-0.5); Lymphocytes Absolute Auto 3.1 10^3/uL (1.2-3.8); Mean Corpuscular HGB Conc 30.7 g/dL (29.9-35.2); Mean Corpuscular Hemoglobin 27.5 pg (26.7-34.0); Mean Corpuscular Volume 89.4 fL (81.0-99.0); Platelet Count 160 10^3/uL (150-450); Red Blood Count 6.33 10^6/uL (4.20-5.40); White Blood Count 11.8 10^3/uL (4.0-11.0)
[2025-03-25 17:30] LABS: Glucose Urine UA NEGATIVE (NEGATIVE)
[2025-03-25 17:36] LABS: Anion Gap 5.1; Blood Urea Nitrogen 14.0 mg/dL (7.0-18.0); Calcium 9.2 mg/dL (8.5-10.1); Carbon Dioxide 36.9 mmol/L (21.0-32.0); Chloride 106 mmol/L (98-107); Estimated GFR (African America >60 (>=60 mL/min/1.73m^2); Estimated GFR (Non-African Ame >60 (>=60 mL/min/1.73m^2); Glucose 164 mg/dL (74-106); Potassium 4.0 mmol/L (3.5-5.1); Sodium 144 mmol/L (136-145)
[2025-03-25 17:43] LABS: Cast Seen? SEEN #/LPF (NONE SEEN); Crystals Seen? None Seen #/HPF (None Seen); Urine Culture Indicated NO
== END 2025-03-25 19:19 | disposition home or self-care (01) ==
PROVIDERS: Emergency Provider Emergency Medicine; PCP Nurse Practitioner
DX: M79.3 Panniculitis, unspecified (principal); F17.200 Nicotine dependence, unspecified, uncomplicated; E66.01 Morbid (severe) obesity due to excess calories; Z68.43 Body mass index [BMI] 50.0-59.9, adult
CPT/HCPCS: 36415; 74177; 80048; 81001; 85025; 99285; Q9967

== ENCOUNTER 2025-03-26 11:54 | Outpatient (OUT) | payer MEDICARE, SELFPAY ==
--- OUTSIDE RECORDS SUMMARY | 2025-03-26 12:00 | XMS_ITS | Encounter Summary ---
Author Organization [facility] Address [address] [place] [address] Care Team Providers Care Senior Mobile Solutions Architect Name Role Phone Ty Amin MD Primary Care Provider [phone] Mckayla Blas DIRECTOR OF HEAD START Unavailable [phone] Mckayla Blas NP Unavailable [phone] Encounter Details Date Type Department Care Team (Late st Contact Info) Description 01/07/2025 Abstract [facility] [address] [place] [address] Mckayla Blas NP [address] [place] [address] Social History Tobacco Use Types Packs/Day Years [...] you attend chur ch or christianity services? More than 4 times per year [...] any time in the past 12 m [facility], were you homeless or living in [...] [facility] [address] [place] [address] Rain Souza MD [address] [place] [address] documented as of this encounter Visit Diagnoses Not on filedocumented in this encounter Additional Health Concerns Assessment Noted Time PHQ-9 Depression Total Score: 3 01/17/20 24 10:08 AM EDT documented as of this encounter Care Teams Senior Mobile Solutions Architect Relationship Specialty Start Date End Date Ty Amin MD PCP - General Family Medicine 09/20/23 Mckayla Blas NP [address] [place] [address] PCP - [facility] 09/07/23 01/11/25 Mckayla Blas NP Nurse Practitioner Family Medicine 09/20/23 documented as of this encounter
--- OUTSIDE RECORDS SUMMARY | 2025-03-26 12:00 | XMS_ITS | Encounter Summary ---
Author Organization [facility] Address [address] [place] [address] Care Team Providers Care Language Specialist Name Role Phone Ty Amin MD Primary Care Provider [phone] Mckayla Blas SMALL ORDER CUTTER Unavailable [phone] Mckayla Blas NP Unavailable [phone] Encounter Details Date Type Department Care Team (Late st Contact Info) Description 01/07/2025 Abstract [facility] [address] [place] [address] Mckayla Blas NP [address] [facility] [place] [phone] Social History Tobacco Use Types Packs/Day Years [...] often do you attend chur ch or spiritism services? More than 4 times per year [...] any time in the past 12 m [facility], were you homeless or living [...] [facility] [address] [place] [address] Rain Souza MD [address] [place] [address] documented as of this encounter Visit Diagnoses Not on filedocumented in this encounter Additional Health Concerns Assessment Noted Time PHQ-9 Depression Total Score: 3 01/17/20 24 10:08 AM EDT documented as of this encounter Care Teams Language Specialist Relationship Specialty Start Date End Date Ty Amin MD PCP - General Family Medicine 09/20/23 Mckayla Blas NP [address] [place] [address] PCP - [facility] 09/07/23 01/11/25 Mckayla Blas NP Nurse Practitioner Family Medicine 09/20/23 documented as of this encounter
--- OUTSIDE RECORDS SUMMARY | 2025-03-26 12:00 | XMS_ITS | Encounter Summary ---
[id number] [address] [place] [address] Care Team Providers Care Learning Specialist Name Role Phone Mckayla Blas APRN-MORNING SHOW HOST Primary Care Provider Encounter Details Date Type Department Care Team (Late st Contact Info) Description 05/03/2020 [facility] [address] [place] [address] Tramaine Romero DO [address] [place] [address], [address] [id number] Social History Tobacco Use Types Packs/Day Years [...] on filedocumented in this encounter Care Teams Learning Specialist Relationship Specialty Start Date End Date Mckayla Blas [place] [address] PCP - General Nurse Practitioner 09/25/18 documented as of this encounter
--- OUTSIDE RECORDS SUMMARY | 2025-03-26 12:00 | XMS_ITS | Encounter Summary ---
Author Organization [facility] Address [address] [place] [address] Care Team Providers Care Plumbing Assembler Installer Name Role Phone Ty Amin MD Primary Care Provider [phone] Ty Amin MD Primary Care Provider [phone] Mckayla Blas CLUB WAITER/WAITRESS Unavailable [phone] Mckayla Blas CLUB WAITER/WAITRESS Unavailable [phone] Encounter Details Date Type Department Care Team (Late st Contact Info) Description 08/31/2023 Clinisync Result Encounter [facility] External Department Unsolicited Andra Alcala PA [address] [place] [address] Dr Price [place], [place] [id number] Social History Tobacco Use Types Packs/Day Years [...] Recorded Patient Health Questionnaire-2 Score 2 07/10/2023 [facility] - Occupational Stress Questionnaire [...] Endocrinology [address] [place] [address] Rain Souza MD [address] [place] [address] documented as of this encounter Procedures Procedure [...] PM EST 09/10/2023 2:29 PM EST Narrative [facility] - 09/16/2023 1:07 PM EDT us Generic External Data Provider LAB BLOOD ORDERAB LES Final Result Performing Organization Address City/[facility]/ZIP Co de Phone Number [facility] * BLOOD CULTURE 1 (09/10/2023 2:05 PM EST) Pathologist [facility] BLOOD CULTURE 1 Blood Culture 1 NG5D NO GROWTH AT 5 DAYS.^NO GROWTH AT 5 DAYS. [facility] 09/10/2023 2:05 PM EST 09/10/2023 2:28 PM EST Narrative CLINISYWI - 09/16/2023 1:07 PM EDT us Generic External Data Provider LAB BLOOD ORDERAB LES Final Result Performing Organization Address [facility] de Phone Number [facility] * ECG 12-LEAD (08/31/2023 6:08 PM EST) Anatomical Region Laterality Modality Other 08/31/2023 6:08 PM EST Narrative 09/02/2023 7:32 [place] [address] Electrocardiograph Report Signed Patient: MITZI MACIAS MR#: [id number] : 1970 Acct:[id number] Age/Sex: 53 / F ADM Date: 08/31/23 Loc: MS 214-[address]: Jacqueline Becerra D.O. 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 Signed By: 09/02/23731 DD/ 07 TD/TT: Residential Caregiver: Procedure Note Radiology, Radiologist, MD - 09/02/2023 [place] [address] Electrocardiograph Report Signed Patient: MITZI MACIAS LMR#: [id number] : 1970Acct:[id number] Age/Sex: 53 / FADM Date: 08/31/23 Loc: MS 214-[address]: Jacqueline Becerra D.O. 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 Signed By:09/02/23731 DD/ 07 TD/TT: Residential Caregiver: Andra MAYERS [facility] Final Result documented in this encounter Visit Diagnoses Not on filedocumented in this encounter Care Teams Plumbing Assembler Installer Relationship Specialty Start Date End Date Ty Amin MD PCP - General Family Medicine 01/05/23 09/19/23 Ty Amin MD PCP - General Family Medicine 09/20/23 Mckayla Blas NP [address] [place] [address] PCP - [facility] 09/07/23 01/11/25 Mckayla Blas NP Nurse Practitioner Family Medicine 09/20/23 documented as of this encounter
--- OUTSIDE RECORDS SUMMARY | 2025-03-26 12:00 | XMS_ITS | Encounter Summary ---
Author Organization [facility] Address [address] [place] [address] Care Team Providers Care Aco Coordinator Name Role Phone Ty Amin MD Primary Care Provider [phone] Mckayla Blas NP Unavailable [phone] Mckayla Blas NP Unavailable [phone] Encounter Details Date Type Department Care [...] 1 01/17/2024 [facility] Occupat ional [...] [facility] [address] [place] [address] Rain Souza MD [address] [place] [address] documented as of this encounter Procedures Procedure Name Priority Date/Time Associated Diagnosis Comments CT ABDOMEN PELVIS W CON 05/12/2024 2:16 PM EST documented in this encounter Results * CT ABDOMEN PELVIS W CON (05/12/2024 2:16 PM EST) Anatomical Region Laterality Modality Other 05/12/2024 2:16 PM EST Narrative 05/12/2024 2:19 PM EST The [address] [address] [address] Scan Report Signed Patient: MITZI MACIAS MR#: [id number] : 1970 Acct:[id number] Age/Sex: 53 / F ADM Date: 05/12/24 Loc: CT Attending Dr: Sarah MAYERS Ordering Physician: Sarah Vega Date of Service: 05/12/24 Procedure(s): CT abdomen pelvis w con Accession Number(s): [id number] cc: Mckayla Blas NP [place] [address] [place], [place] [address] Patient Name: MITZI MACIAS MRN: [facility]:[id number] date: 1970 Sex: F Assigned Patient Location: CT Current Patient Location: Accession/Order Number: [id number] Exam Date: 05/12/2024 11:15 Report Date: 05/12/2024 [...] Signed By: 05/12/24 1419 DD/ 1416 TD/TT: Yard Coupler: Procedure Note Radiology, Radiologist, MD - 05/12/2024 [place] [address] CT Scan Report Signed Patient: MITZI MACIAS LMR#: [id number] : 1970Acct:[id number] Age/Sex: 53 / FADM Date: 05/12/24 Loc: CT Attending Dr: Sarah MAYERS Ordering Physician: Sarah Vega Date of Service: 05/12/24 Procedure(s): CT abdomen pelvis w con Accession Number(s): [id number] cc: Mckayla Blas NP The [place] [id number] Patient Name: MITZI MACIAS MRN: [facility]:[id number] date: 1970 Sex: F Assigned Patient Location: CT Current Patient Location: Accession/Order Number: [id number] Exam Date: 05/12/2024 11:15 Report Date: 05/12/2024 [...] M.D. Signed By:05/12/24 1419 DD/ 1416 TD/TT: Yard Coupler: Generic External Data Provider [facility] Final Result documented in this encounter Visit Diagnoses Not on filedocumented in this encounter Additional Health Concerns Assessment Noted Time PHQ-9 Depression Total Score: 3 01/17/20 24 10:08 AM EDT documented as of this encounter Care Teams Aco Coordinator Relationship Specialty Start Date End Date Ty Amin MD PCP - General Family Medicine 09/20/23 Mckayla Blas NP [address] [place] [address] [address] - [facility] 09/07/23 01/11/25 Mckayla Blas NP Nurse Practitioner Family Medicine 09/20/23 documented as of this encounter
--- OUTSIDE RECORDS SUMMARY | 2025-03-26 12:00 | XMS_ITS | Encounter Summary ---
Author Organization [employer] Address [facility] [place] [address] [place] [address] Care Team Providers Care Bank Guard Name Role Phone JuanjoseMckayla carcamo Krystal GRAIN SCOOPER-TRANSFORMATION CONSULTANT Primary Care Provider Encounter Details Date Type Department Care Team (Late st Contact Info) Description 05/31/2020 Orders Only [facility] [address] [place] [address] External, Scanning Provider Social History Tobacco Use [...] Result Performing Organization Address [facility] Co de Phone Number MANUALLY [...] Result Performing Organization Address [facility] Co de Phone Number MANUALLY TRANSCRIBED RESULTS * Pulmonary function test (10/24/2018) us Scanning Provider External PFT ORDERABLES Final Result Performing Organization Address [facility] Co de Phone Number MANUALLY TRANSCRIBED RESULTS * Nuc stress Lexiscan/Exercise (12/12/2016) Anatomical Region Laterality Modality Chest N/A Nuclear Medicine us Scanning Provider External CV STRESS ORDERABLES Final Result documented in this encounter Visit Diagnoses Not on filedocumented in this encounter Care Teams Bank Guard Relationship Specialty Start Date End Date Mckayla Blas, GRAIN SCOOPER-TRANSFORMATION CONSULTANT [address] [place] [address] PCP - General Nurse Practitioner 09/25/18 documented as of this encounter"
--- OUTSIDE RECORDS SUMMARY | 2025-03-26 12:00 | XMS_ITS | Encounter Summary ---
Author Organization [facility] Address [address] [place] [address] Care Team Providers Care Dough Scaler And Mixer Name Role Phone Ty Amin MD Primary Care Provider [phone] Ty Amin MD Primary Care Provider [phone] Mckayla Blas PREVENTIVE MEDICINE PHYSICIAN Unavailable [phone] Mckayla Blas PREVENTIVE MEDICINE PHYSICIAN Unavailable [phone] Encounter Details Date Type Department Care Team (Late st Contact Info) Description 09/12/2023 Orders Only [facility] [address] [place] [address] Social History Tobacco Use Types Packs/Day Years [...] Questionnaire-2 Score 2 07/10/2023 [facility] of Occupat [...] [facility] [address] [place] [address] Rain Souza MD [address] [place] [address] documented as of this encounter Procedures Procedure Name Priority Date/Time Associated Diagnosis Comments XR CHEST 1 VIEW Routine 09/11/2023 4:52 PM EST documented in this encounter Results * XR chest 1 view (09/11/2023 4:52 PM EST) Anatomical Region Laterality Modality Chest Radiographic Kalani ging [facility] IMG XR PROCEDURES Final Result documented in this encounter Visit Diagnoses Not on filedocumented in this encounter Care Teams Dough Scaler And Mixer Relationship Specialty Start Date End Date Ty Amin MD PCP - General Family Medicine 01/05/23 09/19/23 Ty Amin MD PCP - General Family Medicine 09/20/23 Mckayla Blas NP [address] [place] [address] PCP - [facility] 09/07/23 01/11/25 Mckayla Blas NP Nurse Practitioner Family Medicine 09/20/23 documented as of this encounter
--- OUTSIDE RECORDS SUMMARY | 2025-03-26 12:00 | XMS_ITS | Encounter Summary ---
Author Organization [facility] Address [address] [place] [address] Care Team Providers Care Supply Technician Name Role Phone Ty Amin MD Primary Care Provider [phone] Mckayla Blas NP Unavailable [phone] Mckayla Blas NP Unavailable [phone] Encounter Details Date Type Department Care [...] [facility] [address] [place] [address] Rain Souza MD [address] [place] [address] documented as of this encounter Procedures Procedure Name Priority Date/Time Associated Diagnosis Comments MR LUMBAR SPINE WO CON 05/12/2024 2:41 PM EST documented in this encounter Results * MR LUMBAR SPINE WO CON (05/12/2024 2:41 PM EST) Anatomical Region Laterality Modality Other 05/12/2024 2:41 PM EST Narrative 05/12/2024 2:43 PM EST The [address] [address] Magnetic Resonance Report Signed Patient: MITZI MACIAS MR#: [id number] : 1970 Acct:[id number] Age/Sex: 53 / F ADM Date: 05/12/24 Loc: MRI Attending Dr: Angela Chin MATERIAL HANDLER Ordering Physician: Angela Chin NP Date of Service: 05/12/24 Procedure(s): MR lumbar spine wo con Accession Number(s): [id number] cc: Mckayla Blas NP; Angela Chin NP [place] [address] Patient Name: MITZI MACIAS MRN: [facility]:[id number] date: 1970 Sex: F Assigned Patient Location: MRI Current Patient Location: CT Accession/Order Number: [id number] Exam Date: 05/12/2024 09:21 Report Date: 05/12/2024 [...] Signed By: 05/12/24 1443 DD/ 40 TD/TT: Database Reporting Consultant: Procedure Note Radiology, Radiologist, MD - 05/12/2024 [place] [address] Magnetic Resonance Report Signed Patient: MITZI MACIAS LMR#: [id number] : 1970Acct:[id number] Age/Sex: 53 / FADM Date: 05/12/24 Loc: MRI Attending Dr: Angela Chin MATERIAL HANDLER Ordering Physician: Angela Chin NP Date of Service: 05/12/24 Procedure(s): MR lumbar spine wo con Accession Number(s): [id number] cc: Mckayla Blas MATERIAL HANDLER; Angela Chin NP The [place] [id number] Patient Name: MITZI MACIAS MRN: [facility]:[id number] date: 1970 Sex: F Assigned Patient Location: MRI Current Patient Location: CT Accession/Order Number: [id number] Exam Date: 05/12/2024 09:21 Report Date: 05/12/2024 [...] M.D. Signed By:05/12/24 1443 DD/ 144 TD/TT: Database Reporting Consultant: Generic External Data Provider [facility] Final Result documented in this encounter Visit Diagnoses Not on filedocumented in this encounter Additional Health Concerns Assessment Noted Time PHQ-9 Depression Total Score: 3 01/17/20 24 10:08 AM EDT documented as of this encounter Care Teams Supply Technician Relationship Specialty Start Date End Date Ty Amin MD PCP - General Family Medicine 09/20/23 Mckayla Blas NP [address] [place] [address] PCP - [facility] 09/07/23 01/11/25 Mckayla Blas NP Nurse Practitioner Family Medicine 09/20/23 documented as of this encounter
--- OUTSIDE RECORDS SUMMARY | 2025-03-26 12:00 | XMS_ITS | Clinical Summary ---
Author Organization [facility] Address [address] [place] [address] Care Team Providers Care Welfare Visitor Name Role Phone Ty Amin MD Primary Care Provider [phone] Mckayla Blas NP Unavailable [phone] Allergies No known active allergies Medications [...] if needed for wheezing Active HYDROcodone-acet aminophen ([place]) 5-325 MG tablet 1 tablet as needed [...] 025 Active ergocalciferol (Vitamin D2) 1.25 MG (81519 UT) capsuleIndicatio ns:Vitamin D deficiency, unspecified Take [...] with long-term current use of insulin ([facility]) Inject 58 Units under the skin in the morning and 58 Units before bedtime. 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 025 Non-pressure [...] see if helps Encounter for subsequent [facility] wellness visit (AWV) in Medicare [...] can try ubrelvy #3 samples given: Lot [id number], exp 03/2025 Mixed incontinence 11/14/2023 Arthritis 11/14/2023 [...] is necessary they take over prescribing Pancreatitis ([facility]) 09/17/2023 COPD exacerbation 09/17/2023 Assessment [...] 11:17 AM EDT): Open wounds refer to [facility] Wound Care Pulmonary hypertension 09/17/2023 Assessment & Plan (01/26/2025 7:52 AM EDT): Has seen [facility] Cardiology Assessment & Plan (12/09/2024 7:23 AM EDT): Has seen [facility] Cardiology Assessment & Plan (11/15/2023 3:49 PM EDT): Saw [facility] Cardiology See notes Going to see Pulmonary Assessment & Plan (09/27/2023 1:03 PM EDT): Needs to wear her PAP I am also going to have her see [facility] Cardiology as well PAD (peripheral [...] spiriva Will trial breztri: #2 samples given [id number], exp 03/03, rinse mouth after use Give [...] PM EDT): Current meds: albuterol, duoneb, Has impregnator carbon products 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 Assessment & Plan (08/27/2024 7:30 AM EST): Current meds: albuterol, duoneb, Has impregnator carbon products 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 Assessment & Plan (01/17/2024 [...] lost script I did contact [facility] [place], they will get another fill on this [...] Care Team Description 03/09/2025 Refill [facility] [address] [facility] [place] [address] Mckayla Blas NP Tobacco user; Encounter for smoking cessation counseling 02/27/2025 Refill [facility] [address] [place] [address] Amber Pinzon LPN Type 2 diabetes mellitus with other circulatory complications (HCC) 02/26/2025 Refill [facility] [address] [place] [address] Rain Odonnell MD Type 2 diabetes mellitus with other circulatory complications (HCC) 02/18/2025 Abstract [facility] [address] [place] [address] Mckayla Blas NP 02/14/2025 Refill [facility] [address] [place] [address] Rain Odonnell MD Type 2 diabetes mellitus with hyperglycemia, with long-term current use of insulin (HCC) 01/29/2025 9:40 AM EDT Office Visit [facility] [place] [address] [place] [address] Rain Odonnell MD Encounter for dietary consultation [...] adult ([facility]) 01/29/2025 Clinisync Result Encounter [facility] External Department Unsolicited Provider, Generic External Data 01/29/2025 Bamboo flowsheet [facility] [address] [place] [address] Rain Odonnell MD 01/26/2025 6:00 PM EDT Office Visit [facility] [address] [place] [address] Mckayla Blas NP Encounter for subsequent annual [...] calories ([facility]) 01/26/2025 Bamboo flowsheet [facility] [address] [place] [address] Mckayla Blas NP 01/19/2025 Travel 01/16/2025 Refill [facility] [address] [place] [address] Amber Pinzon LPN Vitamin D deficiency, unspecified 01/07/2025 Abstract [facility] [address] [place] [address] Mckayla Blas NP 01/07/2025 Abstract [facility] [address] [facility] [address] Mckayla Blas, SILVANO from Last 3 Months Immunizations Immunization Administration Dates Next Due Influenza Whole 05/02/2013 Influenza, [id number] 04/16/2017,05/10/2016 Influenza, Unspecified 05/18/2023,04/16/2017,08/2015 Influenza, injectable, quadrivalent [...] How often do you attend chur or buddhism services? More than 4 times [...] Recorded Patient Health Questionnaire-2 Score 0 01/26/2025 [facility]ational [facility] Questionnaire Answer [...] time in the past 12 m [facility], were you homeless or living [...] [facility] [address] [place] [address] Rain Odonnell MD [address] [place] [address] Health Maintenance Due Date Last Done Comments [...] EDT Narrative 01/29/2025 6:40 [place] [address] Cardiology Report Signed Patient: SINA MACIAS MR#: [id number] : 1970 Acct:[id number] Age/Sex: 54 / F ADM Date: 01/29/25 Loc: CARD Attending Dr: AMI ORO APRN Ordering Physician: AMI ORO APRN Date of Service: 01/29/25 Procedure(s): CA echo doppler complete Accession Number(s): [id number] cc: Mckayla Blas NP; AMI ORO APRN Patient Name: SINA MACIAS MR#: [id number] : 1970 Exam Date: 01/29/2025 Ordering Doctor: AMI ORO [facility] ECHOCARDIOGRAM REPORT PROCEDURE: CA ECHO DOPPLER [...] HERRERA Signed By: 01/29/251839 DD/ 39 TD/TT: Materials Intern: Procedure Note Radiology, Radiologist, MD - 01/29/2025 [place] [address] Cardiology Report Signed Patient: SINA MACIAS LMR#: [id number] : 1970Acct:[id number] Age/Sex: 54 / FADM Date: 01/29/25 Loc: CARD Attending Dr: AMI ORO APRN Ordering Physician: AMI ORO APRN Date of Service: 01/29/25 Procedure(s): CA echo doppler complete Accession Number(s): [id number] cc: Mckayla Blas EXPLOSIVE EXPERT; AMI ORO APRN Patient Name: SINA MACIAS MR#: [id number] : 1970 Exam Date: 01/29/2025 Ordering Doctor: AMI ORO GARNISHER ECHOCARDIOGRAM REPORT PROCEDURE: CA ECHO DOPPLER COMPLETE [...] BHARAT HERRERA Signed By:01/29/251839 DD/ 39 TD/TT: Materials Intern: us Generic External Data Provider [facility] [...] Region Laterality Modality Head Other Mckayla Blas EXPLOSIVE EXPERT OPHTH PHOTOGRAPHY Final Result * MM TOMOSYNTHESIS SCREENING BI (12/14/2023 11:21 AM EDT) Anatomical Region Laterality Modality Other 12/14/2023 11:2 1 AM EDT Narrative 12/14/2023 11:22 AM EDT [place] [id number] Mammography Report Signed Patient: SINA MACIAS MR#: [id number] : 1970 Acct:[id number] Age/Sex: 53 / F ADM Date: 12/13/23 Loc: MAMMO Attending Dr: Mckayla Blas NP Ordering Physician: Mckayla Blas NP Results: Date of Service: 12/13/23 Follow Up: Procedure(s): MM tomosynthesis screening BI Accession Number(s): [id number] cc: Mckayla Blas NP Patient Name: SINA MACIAS MR#: [id number] : 1970 Exam Date: 12/13/2023 Ordering Doctor: [...] unknown cancer at age 75. LOCATION: [facility] BREAST COMPOSITION: The breasts are [...] Signed By: 12/14/23 1122 DD/ 1121 TD/TT: Materials Intern: Procedure Note Radiology, Radiologist, MD - 12/14/2023 [place] [address] Mammography Report Signed Patient: SINA MACIAS LMR#: [id number] : 1970Acct:[id number] Age/Sex: 53 / FADM Date: 12/13/23 Loc: MAMMO Attending Dr: Mckayla Blas EXPLOSIVE EXPERT Ordering Physician: Mckayla Blas NPResults: Date of Service: 12/13/23Follow Up: Procedure(s): MM tomosynthesis screening BI Accession Number(s): [id number] cc: Mckayla Blas NP Patient Name: SINA MACIAS MR#: [id number] : 1970 Exam Date: 12/13/2023 Ordering Doctor: SAYDA Blas GARNISHER RADIOLOGY REPORT PROCEDURE: MM TOMOSYNTHESIS SCREENING BI [...] unknown cancer at age 75. LOCATION: [facility] BREAST COMPOSITION: The breasts are [...] M.D. Signed By:12/14/23 1122 DD/ 1121 TD/TT: Materials Intern: Mckayla Blas NP [facility] Final Result from Last 3 Months or Most Recently Relevant to Health Maintenance Insurance [employer] MEDICARE Care Teams Welfare Visitor Relationship Specialty Start Date End Date Ty Amin MD PCP - General Family Medicine 09/20/23 Mckayla Blas NP Nurse Practitioner Family Medicine 09/20/23
--- OUTSIDE RECORDS SUMMARY | 2025-03-26 12:00 | XMS_ITS | Clinical Summary ---
Author Organization [employer] tem Address [id number] [address] [place] [address] Care Team Providers Care Equipment Services Associate Name Role Phone Wan Mckayla Krystal PEREZN-SOLE SEAMER Primary Care Provider Allergies No known active [...] Vaccine (1 of 2) 2020 COVID-19 Vaccine ( - 2024-2 6 season) 2025 07/19/2021, 10/28/2020, 10/08/2020 Influenza Vaccine 03/09/2025 05/18/2023, , 05/10/2016, Additional history exists Adult BMI Screening 06/19/2025 06/19/2024 Medical Devices Not on file Insurance MEDICAID MD [employer] MEDICARE Care Teams Equipment Services Associate Relationship Specialty Start Date End Date Mckayla Blas APRN-SOLE SEAMER [address] [place] [address] PCP - General Nurse Practitioner 09/25/18
--- OUTSIDE RECORDS SUMMARY | 2025-03-26 12:00 | XMS_ITS | Encounter Summary ---
Author Organization [facility] Address [address] [place] [address] Care Team Providers Care Client Services Administrator Name Role Phone Ty Amin MD Primary Care Provider [phone] Mckayla Blas NP Unavailable [phone] Mckayla Blas NP Unavailable [phone] Encounter Details Date Type Department Care Team (Late st Contact Info) Description 05/12/2024 Orders Only [facility] [address] [place] [address] Angela Cochran NP [address] [place] [address] Social History Tobacco Use Types [...] often do you attend chur ch or sabianism services? 1 to 4 times per year [...] Visit [facility] [address] [place] [address] Rain Souza MD [address] [place] [address] documented as of this encounter Procedures Procedure [...] documented as of this encounter Care Teams Client Services Administrator Relationship Specialty Start Date End Date Ty Amin MD PCP - General Family Medicine 09/20/23 Mckayla Blas NP [address] [place] [address] PCP - [facility] 09/07/23 01/11/25 Mckayla Blas NP Nurse Practitioner Family Medicine 09/20/23 documented as of this encounter
--- OUTSIDE RECORDS SUMMARY | 2025-03-26 12:00 | XMS_ITS | Encounter Summary ---
Author Organization [facility] Address [address] [place] [facility] [place] [address] Care Team Providers Care Fertilizing 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 Name Role Phone Ty Amin MD Primary Care Provider [phone] Mckayla Blas SNUFF BLENDER Unavailable [phone] Encounter Details Date Type Department Care Team (Late st Contact Info) Description 02/18/2025 Abstract [facility] [address] [place] [address] Mckayla Blas NP [address] [place] [address] Social History Tobacco Use Types Packs/Day Years [...] do you attend chur or holiness services? More than 4 times [...] time in the past 12 m [facility], were you homeless or living in a [...] [facility] [address] [place] [address] Rain Souza MD [address] [place] [address] documented as of this encounter Visit Diagnoses Not on filedocumented in this encounter Additional Health Concerns Assessment Noted Time PHQ-9 Depression Total Score: 3 01/17/20 24 10:08 AM EDT documented as of this encounter Care Teams Fertilizing 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 Relationship Specialty Start Date End Date Ty Amin MD PCP - General Family Medicine 09/20/23 Mckayla Blas NP Nurse Practitioner Family Medicine 09/20/23 documented as of this encounter
--- OUTSIDE RECORDS SUMMARY | 2025-03-26 12:00 | XMS_ITS | Encounter Summary ---
Author Organization [facility] Address [address] [place] [address] Care Team Providers Care Pipeline Technician Name Role Phone Ty Amin MD Primary Care Provider [phone] Mckayla Blas NP Unavailable [phone] Mckayla Blas NP Unavailable [phone] Encounter Details Date Type Department Care [...] [facility] [address] [place] [address] Rain Souza MD [address] [place] [address] documented as of this encounter Procedures Procedure Name Priority Date/Time Associated Diagnosis Comments SEGMENTAL BLOOD PRESSURE 04/24/2024 11:20 AM EDT documented in this encounter Results * SEGMENTAL BLOOD PRESSURE (04/24/2024 11:20 AM EDT) Anatomical Region Laterality Modality Radiographic Kalani ging 04/24/2024 11:2 0 AM EDT Narrative 04/24/2024 11:23 AM EDT The [address] [address] Vein Report Signed Patient: MITZI MACIAS MR#: [id number] : 1970 Acct:[id number] Age/Sex: 53 / F ADM Date: 04/24/24 Loc: [facility] Attending Dr: Rafael Gongora Ordering Physician: Rafael Gongora Date of Service: 04/24/24 Procedure(s): VC SEGMENTAL PRESSURES Accession Number(s): [id number] cc: Mckayla Blas NP; Rafael Gongora The [place] [address] Patient Name: MITZI MACIAS MRN: [id number] date: 1970 Sex: F Assigned Patient Location: VC Current Patient Location: VC Accession/Order Number: [id number] Exam Date: 04/24/2024 10:25 Report Date: 04/24/2024 11:20 At the request of: RAFAEL GONGORA Procedure: VC SEGMENTAL PRESSURES EXAM: VC SEGMENTAL PRESSURES HISTORY: R09.89 COMPARISON: None. FINDINGS: Segmental pressures presented as follows (right, left) in mmHg. Brachial: 169, 166 Upper thigh: Not obtained Lower thigh: 129, 119 Calf: 124, 106 DPA: 108, 105 PARK MANAGER: 100, 91 1st Toe: 124, 142 [...] Signed By: 04/24/24 1123 DD/ 1120 TD/TT: Circulator: Procedure Note Radiology, Radiologist, MD - 04/24/2024 [place] [address] Vein Report Signed Patient: MITZI MACIAS LMR#: [id number] : 1970Acct:[id number] Age/Sex: 53 / FADM Date: 04/24/24 Loc: VC Attending Dr: Rafael Gongora Ordering Physician: Rafael Gongora Date of Service: 04/24/24 Procedure(s): VC SEGMENTAL PRESSURES Accession Number(s): [id number] cc: Mckayla Blas NP; Rafael Gongora [place] [id number] Patient Name: MITZI MACIAS MRN: [facility]:[id number] date: 1970 Sex: F Assigned Patient Location: VC Current Patient Location: VC Accession/Order Number: [id number] Exam Date: 04/24/2024 10:25 Report Date: 04/24/2024 11:20 At the request of: RAFAEL GONGORA Procedure: VC SEGMENTAL PRESSURES EXAM: VC SEGMENTAL PRESSURES HISTORY: R09.89 COMPARISON: None. FINDINGS: Segmental pressures presented as follows (right, left) in mmHg. Brachial: 169, 166 Upper thigh: Not obtained Lower thigh: 129, 119 Calf: 124, 106 DPA: 108, 105 PARK MANAGER: 100, 91 1st Toe: 124, 142 [...] M.D. Signed By:04/24/24 1123 DD/ 1120 TD/TT: Circulator: us Generic External Data Provider IMG XR PROCEDURES Final Result documented in this encounter Visit Diagnoses Not on filedocumented in this encounter Additional Health Concerns Assessment Noted Time PHQ-9 Depression Total Score: 3 01/17/20 24 10:08 AM EDT documented as of this encounter Care Teams Pipeline Technician Relationship Specialty Start Date End Date Ty Amin MD PCP - General Family Medicine 09/20/23 Mckayla Blas NP [address] [place] [address] PCP - [facility] 09/07/23 01/11/25 Mckayla Blas NP Nurse Practitioner Family Medicine 09/20/23 documented as of this encounter
--- OUTSIDE RECORDS SUMMARY | 2025-03-26 12:00 | XMS_ITS | Encounter Summary ---
Author Organization [facility] Address [address] [place] [address] Care Team Providers Care Managing Manager Name Role Phone Ty Amin MD Primary Care Provider [phone] Mckayla Blas PARK GUIDE Unavailable [phone] Mckayla Blas NP Unavailable [phone] Encounter Details Date Type Department Care Team (Late st Contact Info) Description 04/14/2024 Orders Only [facility] [address] [place] [address] Mckayla Blas NP [address] [facility] [place] [address] Social History Tobacco Use Types Packs/Day Years [...] you attend chur ch or synagogue services? 1 to 4 times per year [...] 1 01/17/2024 [facility] - Occupational Stress Questionnaire [...] Visit [facility] [address] [place] [address] Rain Souza MD [address] [place] [address] documented as of this encounter Procedures Procedure Name Priority Date/Time Associated Diagnosis Comments XR ANKLE 3+ VIEWS RIGHT Routine 04/14/2024 2:57 PM EDT XR ANKLE 3+ VIEWS RIGHT Routine 04/14/2024 11:20 AM EDT documented in this encounter Results * XR ankle 3+ views right (04/14/2024 2:57 PM EDT) Anatomical Region Laterality Modality Lower Extremities, Ankle Right Radiogr aphic Imaging us Mckayla Blas PARK GUIDE IMG XR PROCEDURES Final Result * XR ankle 3+ views right (04/14/2024 11:20 AM EDT) Anatomical Region Laterality Modality Lower Extremities, Ankle Right Radiogr aphic Imaging us Mckayla Blas PARK GUIDE IMG XR PROCEDURES Final Result documented in this encounter Visit Diagnoses Not on filedocumented in this encounter Additional Health Concerns Assessment Noted Time PHQ-9 Depression Total Score: 3 01/17/20 10:08 AM EDT documented as of this encounter Care Teams Managing Manager Relationship Specialty Start Date End Date Ty Amin MD PCP - General Family Medicine 09/20/23 Mckayla Blas NP [address] [place] [address] PCP - [facility] 09/07/23 01/11/25 Mckayla Blas NP Nurse Practitioner Family Medicine 09/20/23 documented as of this encounter
--- OUTSIDE RECORDS SUMMARY | 2025-03-26 12:00 | XMS_ITS | Encounter Summary ---
Author Organization [facility] Address [address] [place] [address] Care Team Providers Care Oven Roaster Name Role Phone Ty Amin MD Primary Care Provider [phone] Mckayla Blas SHUTTLE VENEERING SUPERVISOR Unavailable [phone] Mckayla Blas NP Unavailable [phone] Encounter Details Date Type Department Care Team (Late st Contact Info) Description 07/14/2024 Orders Only [facility] [address] [place] [address] Mckayla Blas NP [address] [facility] [place] [address] Social History Tobacco Use Types Packs/Day Years [...] you attend chur ch or spiritism services? 1 to 4 times per year 07/10/2023 Do you belong to any clubs o r organizations such as roman catholic groups, unions, fraternal or athletic groups, [...] 1 01/17/2024 [facility] - Occupational Stress Questionnaire Answer Date [...] Visit [facility] [address] [place] [address] Rain Souza MD [address] [place] [address] documented as of this encounter Procedures Procedure [...] documented as of this encounter Care Teams Oven Roaster Relationship Specialty Start Date End Date Ty Amin MD PCP - General Family Medicine 09/20/23 Mckayal Blas NP [address] [place] [address] PCP - [facility] 09/07/23 01/11/25 Mckayla Blas NP Nurse Practitioner Family Medicine 09/20/23 documented as of this encounter
--- OUTSIDE RECORDS SUMMARY | 2025-03-26 12:00 | XMS_ITS | Encounter Summary ---
Author Organization [facility] Address [id number] [address] [place] [address] Care Team Providers Care Installation Coordinator Name Role Phone JuanjoseMckayla carcamo Krystal FLIGHT SOFTWARE TEST ENGINEER-RESEARCH AGRICULTURAL ENGINEER Primary Care Provider Encounter Details Date Type Department Care Team (Late st Contact Info) Description 06/11/2020 Orders Only [facility] [address] [place] [address] External, Scanning Provider Social History Tobacco Use [...] on filedocumented in this encounter Care Teams Installation Coordinator Relationship Specialty Start Date End Date Mckayla Blas, FLIGHT SOFTWARE TEST ENGINEER-RESEARCH AGRICULTURAL ENGINEER [address] [place] [address] PCP - General Nurse Practitioner 09/25/18 documented as of this encounter
--- OUTSIDE RECORDS SUMMARY | 2025-03-26 12:01 | XMS_ITS | Encounter Summary ---
Author Organization [facility] Address [address] [place] [address] Care Team Providers Care Construction Job Cost Estimator Name Role Phone Ty Amin MD Primary Care Provider [phone] Mckayla Blas COAT MAKER Unavailable [phone] Mckayla Blas COAT MAKER Unavailable [phone] Reason for Visit * Reason Comments Med Refill Encounter Details Date Type Department Care Team (Late st Contact Info) Description 11/27/2023 Refill [facility] [address] [place] [address] Mckayla Blas NP [address] [facility] [place] [address] Chronic obstructive pulmonary disease, unspecified (HCC) Social [...] Recorded Patient Health Questionnaire-2 Score 0 11/01/2023 [facility] ional [...] [facility] [address] [place] [address] Rain Souza MD [address] [place] [address] documented as of this encounter Visit Diagnoses Diagnosis Chronic obstructive pulmonary disease, unspecified (HCC) documented in this encounter Care Teams Construction Job Cost Estimator Relationship Specialty Start Date End Date Ty Amin MD PCP - General Family Medicine 09/20/23 Mckayla Blas NP [address] [place] [address] PCP - [facility] 09/07/23 01/11/25 Mckayla Blas NP Nurse Practitioner Family Medicine 09/20/23 documented as of this encounter
--- OUTSIDE RECORDS SUMMARY | 2025-03-26 12:01 | XMS_ITS | Encounter Summary ---
Author Organization [facility] Address [address] [facility] [place] [address] Care Team Providers Care Healthcare Administrative Assistant Name Role Phone Ty Amin MD Primary Care Provider [phone] Mckayla Blas RESEARCH AFFILIATE Unavailable [phone] Mckayla Blas NP Unavailable [phone] Encounter Details Date Type Department Care Team (Late st Contact Info) Description 12/17/2023 Orders Only [facility] [address] [place] [address] Mckayla Blas NP [address] [place] [address] Social History Tobacco Use Types Packs/Day Years [...] you attend chur ch or rastafarian services? 1 to 4 times per year [...] [facility] [address] [place] [address] Rain Souza MD [address] [place] [address] documented as of this encounter Procedures Procedure [...] on filedocumented in this encounter Care Teams Healthcare Administrative Assistant Relationship Specialty Start Date End Date Naderer, Ty, MD PCP - General Family Medicine 09/20/23 Mckayla Blas NP [address] [place] [address] PCP - [facility] 09/07/23 01/11/25 Mckayla Blas NP Nurse Practitioner Family Medicine 09/20/23 documented as of this encounter
--- OUTSIDE RECORDS SUMMARY | 2025-03-26 12:01 | XMS_ITS | Encounter Summary ---
Author Organization [facility] Address [address] [place] [address] Care Team Providers Care Crm Campaign Manager Name Role Phone Ty Amin MD Primary Care Provider [phone] Mckayla Blas SHIPPING SUPPORT CLERK Unavailable [phone] Mckayla Blas NP Unavailable [phone] Encounter Details Date Type Department Care Team (Late st Contact Info) Description 12/14/2023 Clinisync Result Encounter [facility] External Department Unsolicited Mckayla Blas NP [address] [place] [address] Social History Tobacco Use Types Packs/Day Years [...] Recorded Patient Health Questionnaire-2 Score 0 11/01/2023 [facility] - Occupational Stress Questionnaire Answer Date Recorded [...] [facility] [address] [place] [address] Rain Souza MD [address] [place] [address] documented as of this encounter Procedures Procedure Name Priority Date/Time Associated Diagnosis Comments MM TOMOSYNTHESIS SCREENING BI 12/14/2023 11:21 AM EDT documented in this encounter Results * MM TOMOSYNTHESIS SCREENING BI (12/14/2023 11:21 AM EDT) Anatomical Region Laterality Modality Other 12/14/2023 11:2 1 AM EDT Narrative 12/14/2023 11:22 AM EDT The [address] [address] Mammography Report Signed Patient: MTIZI MACIAS MR#: [id number] : 1970 Acct:[id number] Age/Sex: 53 / F ADM Date: 12/13/23 Loc: MAMMO Attending Dr: Mckayla Blas NP Ordering Physician: Mckayla Blas NP Results: Date of Service: 12/13/23 Follow Up: Procedure(s): MM tomosynthesis screening BI Accession Number(s): [id number] cc: Mckayla Blas NP Patient Name: MITZI MACIAS MR#: [id number] : 1970 Exam Date: 12/13/2023 Ordering Doctor: [...] [facility] BREAST COMPOSITION: The breasts are [...] Signed By: 12/14/23 1122 DD/ 1121 TD/TT: Mgmt Specialist: Procedure Note Radiology, Radiologist, MD - 12/14/2023 [place] [address] Mammography Report Signed Patient: MITZI MACIAS LMR#: [id number] : 1970Acct:[id number] Age/Sex: 53 / FADM Date: 12/13/23 Loc: MAMMO Attending Dr: Mckayla Blas SHIPPING SUPPORT CLERK Ordering Physician: Mckayla Blas NPResults: Date of Service: 12/13/23Follow Up: Procedure(s): MM tomosynthesis screening BI Accession Number(s): [id number] cc: Mckayla Blas NP Patient Name: MITZI MACIAS MR#: [id number] : 1970 Exam Date: 12/13/2023 Ordering Doctor: SAYDA Blas DISTRICT TRAFFIC CHIEF RADIOLOGY REPORT PROCEDURE: MM TOMOSYNTHESIS SCREENING BI [...] [facility] BREAST COMPOSITION: The breasts are [...] M.D. Signed By:12/14/23 1122 DD/ 1121 TD/TT: Mgmt Specialist: us Mckayla Blas NP [facility] Final Result documented in this encounter Visit Diagnoses Not on filedocumented in this encounter Care Teams Crm Campaign Manager Relationship Specialty Start Date End Date Ty Amin MD PCP - General Family Medicine 09/20/23 Mckayla Blas NP [address] [place] [address] PCP - [facility] 09/07/23 01/11/25 Mckayla Blas NP Nurse Practitioner Family Medicine 09/20/23 documented as of this encounter
--- OUTSIDE RECORDS SUMMARY | 2025-03-26 12:01 | XMS_ITS | Encounter Summary ---
Author Organization [facility] Address [address] [place] [address] Care Team Providers Care Employment Advisor Name Role Phone Ty Amin MD Primary Care Provider [phone] Ty Amin MD Primary Care Provider [phone] Mckayla Blas CLOTH TESTER Unavailable [phone] Mckayla Blas CLOTH TESTER Unavailable [phone] Encounter Details Date Type Department Care Team (Late st Contact Info) Description 07/08/2023 Abstract [facility] [address] [place] [address] Mckayla Blas NP [address] [place] [address] Social History Tobacco Use Types Packs/Day Years [...] Recorded Patient Health Questionnaire-2 Score 2 07/10/2023 [facility] ional [...] [facility] [address] [place] [address] Rain Souza MD [address] [place] [address] documented as of this encounter Visit Diagnoses Not on filedocumented in this encounter Care Teams Employment Advisor Relationship Specialty Start Date End Date Ty Amin MD PCP - General Family Medicine 01/05/23 09/19/23 Ty Amin MD PCP - General Family Medicine 09/20/23 Mckayla Blas NP [address] [facility] [place] [address] PCP - [facility] 09/07/23 01/11/25 Mckayla Blas NP Nurse Practitioner Family Medicine 09/20/23 documented as of this encounter
--- OUTSIDE RECORDS SUMMARY | 2025-03-26 12:04 | XMS_ITS | CCD ---
Author Organization [facility] Care Team Providers Care Sociology Professor Name Role Phone James Benavidez Primary Care Provider JAMES BENAVIDEZ Primary Care Unavailable SHENDGE, VITHAL Admitting Unavailable SHENDGE, VITHAL Attending Unavailable AICHHOLZ, MCKAYLA Primary Care Unavailable AICHHOLZ, MCKAYLA Referring Unavailable AICHHOLZ, MCKAYLA J Primary Care Physician Tico, Stephanie Unavailable OLE RAMIREZ Attending Unavailable OLE RAMIREZ Consulting Unavailable AICHHOLZ, MECHANICAL ENGINEERING TECHNICIAN MCKAYLA Primary Care Unavailable OLE RAMIREZ Admitting Unavailable ANTONY SHRESTHA Consulting Unavailable ALONDRA ., UMBERTO Admitting Unavailable ALONDRA ., UMBERTO Attending Unavailable AICHHOLZ, MECHANICAL ENGINEERING TECHNICIAN MCKAYLA Primary Care Unavailable AFSANEH Loera, DR BOLANOS Consulting Unavailable MARYANNE POWER Consulting Unavailable GLENN KERR Consulting Unavailable YOMAIRA KERR Consulting Unavailable HATTIE GOFF Consulting Unavailable ALONDRA ., UMBERTO Consulting Unavailable TICO, STEPHANIE Attending Unavailable TICO, STEPHANIE Consulting Unavailable AICHHOLZ, MECHANICAL ENGINEERING TECHNICIAN MCKAYLA Primary Care Unavailable TICO, STEPHANIE Admitting Unavailable REGLA ., DR DUMONT Admitting Unavailable AICHHOLZ, MECHANICAL ENGINEERING TECHNICIAN MCKAYLA Primary Care Unavailable REGLA ., DR DUMONT Attending Unavailable ARAUZ ., DR DUMONT Consulting Unavailable COLLIN HUERTAS Consulting Unavailable CECILIA KAUFMAN Admitting Unavailable CECILIA KAUFMAN Attending Unavailable AICHHOLZ, MECHANICAL ENGINEERING TECHNICIAN MCKAYLA Primary Care Unavailable RAFAEL GONGORA Attending Unavailable RAFAEL GONGORA Admitting Unavailable AICHHOLZ, MECHANICAL ENGINEERING TECHNICIAN MCKAYLA Primary Care Unavailable AICHHOLZ, MECHANICAL ENGINEERING TECHNICIAN MCKAYLA Admitting Unavailable AICHHOLZ, MECHANICAL ENGINEERING TECHNICIAN MCKAYLA Primary Care Unavailable AICHHOLZ, MECHANICAL ENGINEERING TECHNICIAN MCKAYLA Attending Unavailable AICHHOLZ, MECHANICAL ENGINEERING TECHNICIAN MCKAYLA Consulting Unavailable LAKSHMIPATHY ., NARENDRANATH Attending Anette vailable LAKSHMIPATHY ., NARENDRANATH Consulting Anette vailable LAKSHMIPATHY ., NARENDRANATH Admitting Anette vailable AICHHOLZ, MECHANICAL ENGINEERING TECHNICIAN MCKAYLA Primary Care Unavailable VALENZUELA ., GIL Consulting Unavailable MORTENSEN ., DR CHAPARRO Aguillon Attending Unavailable MORTENSEN ., DR CHAPARRO Aguillon Admitting Unavailable AICHHOLZ, MECHANICAL ENGINEERING TECHNICIAN MCKAYLA Primary Care Unavailable VALENZUELA ., GIL Consulting Unavailable MORTENSEN ., DR CHAPARRO Aguillon Admitting Unavailable AICHHOLZ, MECHANICAL ENGINEERING TECHNICIAN MCKAYLA Primary Care Unavailable MORTENSEN ., DR CHAPARRO Aguillon Attending Unavailable HALKER ., SUBHASH Consulting Unavailable LAKSHMIPATHY ., NARENDRANATH Admitting Anette vailable LAKSHMIPATHY ., NARENDRANATH Attending Anette vailable AICHHOLZ, MECHANICAL ENGINEERING TECHNICIAN MCKAYLA Primary Care Unavailable MORTENSEN ., DR CHAPARRO Aguillon Attending Unavailable MORTENSEN ., DR CHAPARRO Aguillon Admitting Unavailable VALENZUELA ., GIL Consulting Unavailable AICHHOLZ, MECHANICAL ENGINEERING TECHNICIAN MCKAYLA Primary Care Unavailable VALENZUELA ., GIL Consulting Unavailable MORTENSEN ., DR CHAPARRO Aguillon Attending Unavailable MORTENSEN ., DR CHAPARRO Aguillon Admitting Unavailable AICHHOLZ, MECHANICAL ENGINEERING TECHNICIAN MCKAYLA Primary Care Unavailable HATTIE BRODERICK Attending Unavailable HATTIE BRODERICK Admitting Unavailable AICHHOLZ, MECHANICAL ENGINEERING TECHNICIAN MCKAYLA Primary Care Unavailable AICHHOLZ, MECHANICAL ENGINEERING TECHNICIAN MCKAYLA Admitting Unavailable AICHHOLZ, MECHANICAL ENGINEERING TECHNICIAN MCKAYLA Consulting Unavailable AICHHOLZ, MECHANICAL ENGINEERING TECHNICIAN MCKAYLA Primary Care Unavailable AICHHOLZ, MECHANICAL ENGINEERING TECHNICIAN MCKAYLA Attending Unavailable AICHHOLZ, MECHANICAL ENGINEERING TECHNICIAN MCKAYLA Primary Care Unavailable MISC, DR LESLIE Admitting Unavailable MISC, DR LESLIE Attending Unavailable MISC, DR LESLIE Consulting Unavailable DIAB ., MARIANO Admitting Unavailable DIAB ., MARIANO Attending Unavailable DIAB ., MARIANO Consulting Unavailable AICHHOLZ, MECHANICAL ENGINEERING TECHNICIAN MCKAYLA Primary Care Unavailable RASTEGAR, RICCO Consulting Unavailable AICHHOLZ, MECHANICAL ENGINEERING TECHNICIAN MCKAYLA Admitting Unavailable AICHHOLZ, MECHANICAL ENGINEERING TECHNICIAN MCKAYLA Primary Care Unavailable AICHHOLZ, MECHANICAL ENGINEERING TECHNICIAN MCKAYLA Attending Unavailable AICHHOLZ, MECHANICAL ENGINEERING TECHNICIAN MCKAYLA Consulting Unavailable DR PATRICIA VELOZ Consulting Unavailable TAMLYN ., CECILIA Attending Unavailable TAMLYN ., CECILIA Admitting Unavailable DR PATRICIA VELOZ Consulting Unavailable AICHHOLZ, MECHANICAL ENGINEERING TECHNICIAN MCKAYLA Primary Care Unavailable TAMLYN ., CECILIA Consulting Unavailable MORTENSEN ., DR CHAPARRO Aguillon Attending Unavailable FESTUS ., DR CHAPARRO Aguillon Consulting Unavailable FESTUS ., DR CHAPARRO Aguillon Admitting Unavailable AICHHOLZ, MECHANICAL ENGINEERING TECHNICIAN MCKAYLA Primary Care Unavailable HATTIE BRODERICK Attending Unavailable HATTIE BRODERICK Consulting Unavailable HATTIE BRODERICK Admitting Unavailable AICHHOLZ, MECHANICAL ENGINEERING TECHNICIAN MCKAYLA Primary Care Unavailable HATTIE BAUTISTA Unavailable AICHHOLZ, MECHANICAL ENGINEERING TECHNICIAN MCKAYLA Admitting Unavailable AICHHOLZ, MECHANICAL ENGINEERING TECHNICIAN MCKAYLA Attending Unavailable AICHHOLZ, MECHANICAL ENGINEERING TECHNICIAN MCKAYLA Consulting Unavailable AICHHOLZ, MECHANICAL ENGINEERING TECHNICIAN MCKAYLA Primary Care Unavailable Brennan PHIPPS, Ty Primary Care Provider Brennan PHIPPS, Ty Primary Care Provider Aichholz RECEIVING DOCK CHECKER, Mckayla Unavailable Aichholz RECEIVING DOCK CHECKER, Mckayla Unavailable Elbert ARAUZ Attending Unavailable SARAH VEGA Attending Unavailable AICHHOLZ, MCKAYLA Attending Unavailable RAIN SOUZA F Attending Unavailable AICHHOLZ, MCKAYLA Attending Unavailable AICHHOLZ, MCKAYLA Attending Unavailable AICHHOLZ, MCKAYLA Attending Unavailable LIBBYRAIN GIANG F Attending Unavailable AICHHOLZ, MCKAYLA Attending Unavailable LIBBYRAIN GIANG F Attending Unavailable LIBBY, AHMAD F Referring Unavailable AICHHOLZ, MCKAYLA Attending Unavailable DAKOTAH BRIDGES Attending Unavailable AMI ORO Attending Unavailable Aichholz RECEIVING DOCK CHECKER, Mckayla Unavailable Adonay CHAU, Flynn Arzate Attending Unavailab le Bob BROADCAST SUPERVISOR-MECHANICAL ENGINEERING TECHNICIAN, Omero Lovell Attending Unav ailable Adonay CHAU, Flynn Arzate Referring Unavailab lolita Kellogg MD, Corinne Ghosh Attending Unavail able Bob BROADCAST SUPERVISOR-MECHANICAL ENGINEERING TECHNICIAN, Omero Lovell Attending Unav ailable Adonay CHAU, Flynn Arzate Attending Unavailab le Bob BROADCAST SUPERVISOR-MECHANICAL ENGINEERING TECHNICIAN, Omero Lovell Attending Unav ailable Allergies Allergy Classification Reported Allergen(s) Allergy Type Date of Onset Reaction(s) Facility (1 source) No Known Medication Allergies; Translations: [No Known Medication Allergies] Propensity to adverse reactions (disorder) [facility] Repository Medications Current Medications Medication Drug [...] Start Date: 02/06/22 Status: Ordered HYDROcodone-acet aminophen ([place]) 5-325 MG tablet 1 tablet 3 (three) times a day as needed for severe pain. Active take 1 tablet by vandana twice daily as needed [place] 5-325 MG 1 tablet as needed Orally [...] every week ergocalciferol (Vitamin D2) 1.25 MG (65700 UT) capsule Indications: Vitamin D deficiency, unspecified Take 1 capsule (1.25 mg) by mouth 1 (one) time per week 12 capsule 1 01/16/2025 04/10/2025 Active Start: 10-27-2024 End: 01-19-2025 take 1 capsule by mouth two times weekly ergocalciferol (Vitamin D2) 1.25 MG (67056 UT) capsule Indications: Vitamin D deficiency, unspecified Take 1 capsule (1.25 mg) by mouth 2 (two) times a week 24 capsule 1 10/27/2024 01/19/2025 Active Start: 04-06-2024 End: 10-27-2024 take 1 capsule by mouth every week ergocalciferol (Vitamin D2) 1.25 MG (57202 UT) capsule Indications: Vitamin D deficiency, unspecified [...] Other snf (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 therapy; Translations: [OTH JAIL CURRENT DRUG THERAPY] Onset: 12-05-2022 Episodic Other aftercare (1 source) 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 (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; Translations: [JAIL CURRENT USE OF ASPIRIN] Onset: 12-05-2022 Episodic Other aftercare (6 sources) Long-term current use of insulin; Translations: [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] 05-27-2024 Episodic Other [...] (1 source) JAIL INJECT NONINSULN ANTIDIAB; Translations: [BUS AND RAIL OPERATOR INJECT NONINSULN ANTIDIAB] Onset: 12-05-2022 Unclassified [...] 08-27-2024 08-27-2024 Episodic Other aftercare (3 sources) intermediate (current) use of insulin; Translations: [JAIL CURRENT USE OF INSULIN] Onset: 12-05-2022 Episodic Other aftercare (20 sources) Long-term current use of inhaled steroid; Translations: [intermediate (current) use of inhaled steroids] Onset: 08-27-2024 [...] She has had testing done at the [facility] last year which she brought with [...] Bob REBOLLEDOOmero Nas 03/23/25 12:01 EDT Normal [facility] Podiatry Office/Clinic Noteo n 03-11-2025 Podiatry [...] wraps (gauze, tila bandage, Coban II, tuba clean out driller helper), Dakins solution, a 40-day course of [...] other blood thinners. The patient resides in [place]. Review of Systems Constitutional: Negative for signs [...] extremities Positi (more content not included)... Normal [facility] Comment on above: Order Comment: Destiny ocampo Attachment [id number] Can be viewed in source system XR [...] Electronically Signed in Other Vendor System) Normal [facility] Orders Onlyon 01-30-2025 Orders Only [id number] Mitzi Macias 1970 F Date Provider Department Center 01/30/2025 [id number], HISTORICAL [facility] Family History Problem Relation Age of Onset Heart attack Paternal Grandmother Family Status - Relation Status Age at Mother Father Paternal Grandmother Normal [facility] CA ECHO DOPPLER COMPLETEon 0 01-29-2025 [place] [id number] Cardiology Report Signed Patient: MITZI MACIAS MR#: [id number] : 1970 Acct:[id number] Age/Sex: 54 / F ADM Date: 01/29/25 Loc: CARD Attending Dr: AMI ORO APRN Ordering Physician: AMI ORO APRN Date of Service: 01/29/25 Procedure(s): CA echo doppler complete Accession Number(s): [id number] cc: Mckayla Blas RECEIVING DOCK CHECKER; AMI ORO APRN Patient Name: MITZI MACIAS MR#: [id number] : 1970 Exam Date: 01/29/2025 Ordering Doctor: [...] HERRERA Signed By: 01/29/251839 DD/ 39 TD/TT: Testing And Regulating Chief: [facility] Radiology, Radiologist, MD - 01/29/2025 [place] [address] Cardiology Report Signed Patient: MITZI MACIAS MR#: [id number] : 1970 Acct:[id number] Age/Sex: 54 / F ADM Date: 01/29/25 Loc: CARD Attending Dr: AMI ORO APRN Ordering Physician: AMI ORO APRN Date of Service: 01/29/25 Procedure(s): CA echo doppler complete Accession Number(s): [id number] cc: Mckayla Blas RECEIVING DOCK CHECKER; AMI ORO APRN Patient Name: MITZI MACIAS MR#: [id number] : 1970 Exam Date: 01/29/2025 Ordering Doctor: [...] HERRERA Signed By: 01/29/251839 DD/ 39 TD/TT: Testing And Regulating Chief: [facility] Radiology Study observation (narrative) [facility] CA ECHO DOPPLER COMPLETEOrde red By: Radiologist Radiology on 01-29-2025 [facility] Work Phone: Glucose (Bld) [Mass/Vol]on 0 01-29-2025 Glucose Blood, POC 121 mg/dL [facility] Laboratory - Hematology and Cell countson 01-29-2025 HbA1c (Bld) [Mass fraction] 8.4 % [facility] No Panel Informationon 01-29 Interpretation and review of laboratory results Abnormal [facility] Office Visiton 01-06-2025 Follow-up visit [id number] Mitzi Macias 1970 F Date Provider Department Center 01/06/2025 Mikaela-AMI ORO CARD [place] [facility] Family History Problem Relation Age of Onset Heart attack Paternal Grandmother Family Status - Relation Status Age at Mother Father Paternal Grandmother Level of Service:97894 [place] OFFICE/OUTPATIENT ESTABLISHED MOD [facility] 30 MIN Reason for Visit and Comments: Congestive Heart Failure [127] Hypertension [886503] Hyperlipidemia [182] Normal [facility] 36on 10-21-2024 36 Regarding lab results from 10/08/2024: MD Mickie Merritt MA Lipids, ALT AST, and BMP are normal. HbA1c was not performed. Continue current management. LM on patient's VM. Normal [facility] Glucose (Bld) [Mass/Vol]Orde red By: Mica Sauceda on 10-08-2024 Glucose Blood, POC 97 mg/dL [facility] Laboratory - Hematology and Cell countson 10-08-2024 HbA1c (Bld) [Mass fraction] 7.4 % [facility] No Panel InformationOrdered By: Mica Sauceda on 10-08-2024 [facility]H UA (CLEAN/CATCH) MICROSC OPIC IF INDICATEon 10-08-2024 BILIRUBIN URINE Negative NEGATIVE [facility] BLOOD URINE Negative NEGATIVE [facility] Clarity (U) CLEAR CLEAR [facility] Color (U) YELLOW YELLOW [facility] GLUCOSE URINE UA Negative NEGATIVE mg/dL [facility] Interpretation and review of laboratory results Abnormal [facility] Ketones Ql (U) Negative NEGATIVE mg/dL [facility] Leukocyte esterase Test strip Ql (U) Negative NEGATIVE [facility] NITRITE URINE Negative NEGATIVE [facility] pH (U) 5.5 [pH] 5.0 - 9.0 [facility] Protein (U) [Mass/Vol] 30 mg/dL Abnormal NEG/TRACE NO [facility] SPECIFIC GRAVITY URINE >=1.030 Abnormal 1.005 - 1.025 [facility] URINE MICROSCOPIC INDICATED YES [facility] UROBILINOGEN URINE 1.0 EU/dL 0.2 - 1.0 EU/dL [facility] ALL CBC WITH AUTO DIFFon BASOPHILS ABSOLUTE AUTO 0.1 [facility] Basophils/100 WBC (Bld) 0.5 % 0.2 - 2.0 % [facility] Eosinophils/100 WBC (Bld) 1.9 % 0.9 - 7.0 % [facility] Erythrocyte distribution width (RBC) [Ratio] 14.6 % 11.0 - 15.0 % [facility] Hematocrit (Bld) [Volume fraction] 50.9 % High 36.0 - 48.0 % [facility] Hemoglobin (Bld) [Mass/Vol] 16.1 g/dL High 12.0 - 16.0 g/dL [facility] IMMATURE GRANULOCYTES ABS AUTO 0.04 High [facility] Immature granulocytes/100 WBC (Bld) 0.3 % 0.0 - 0.5 % [facility] Interpretation and review of laboratory results Abnormal [facility] LYMPHOCYTES ABSOLUTE AUTO 3.2 [facility] Lymphocytes/100 WBC (Bld) 25.1 % 20.5 - 60.0 % [facility] MCH (RBC) [Entitic mass] 29.2 pg 26.7 - 34.0 pg [facility] MCHC (RBC) [Mass/Vol] 31.6 g/dL 29.9 - 35.2 g/dL [facility] MCV (RBC) [Entitic vol] 92.2 fL 81.0 - 99.0 fL [facility] MONOCYTES ABSOLUTE AUTO 0.7 [facility] Monocytes/100 WBC (Bld) 5.2 % 1.7 - 12.0 % [facility] NEUTROPHILS ABSOLUTE AUTO 8.6 High [facility] Neutrophils/100 WBC (Bld) 67 % 43.0 - 75.0 % [facility] Platelet mean volume (Bld) [Entitic vol] 12.8 fL 9.5 - 13.5 fL [facility] TBH EO # 0.2 [facility] TB PLT 122 Low [facility] RBC 5.52 High [facility] WBC 12.8 High [facility] Office Visiton 08-08-2024 Follow-up visit [id number] Mitzi Macias Gilberto 1970 F Date Provider Department Center 08/08/2024 [id number] BRIDGES CARD [facility] Family History Problem Relation Age of Onset Heart attack Paternal Grandmother Family Status - Relation Status Age at Paternal Grandmother Level of Service:73631 [place] OFFICE/OUTPATIENT ESTABLISHED MOD MDM 30 MIN Reason for Visit and Comments: Congestive Heart Failure [127] - Denies chest pain, SOB, and palpitations. Hypertension [376384] Hyperlipidemia [182] LVH [Other] Edema [[id number]] - Denies worsening edema. She sees wound care for RLE ulcer. She was seeing the vein specialists here in town but they are moving to [place] in a few weeks. Normal [facility] Glucose (Bld) [Mass/Vol]Orde red By: Mica Sauceda on 05-27-2024 Glucose Blood, POC 158 mg/dL [facility] Laboratory - Hematology and Cell countson 05-27-2024 HbA1c (Bld) [Mass fraction] 9.2 % [facility] No Panel InformationOrdered By: Mica Sauceda on 05-27-2024 [facility] CREATININEon 05-12-2024 Creatinine [Mass/Vol] 0.92 mg/dL 0.55 - 1.02 mg/dL [facility] GFR/1.73 sq M.predicted CKD-EPI (S/P/Bld) [Vol rate/Area] >60 >=60 mL/min/1.73m 2 [facility] EGFR-NON AF GHANAIAN >60 >=60 mL/min/1.73m 2 [facility] CBC AUTO DIFFon 12-06-2022 BASO # 0.0 103/ul Normal 0.0-0.1 [facility] Comment on above: Performed By: #### C BC #### [facility] [address] [address] [address] Ashlie Hills Basophils/100 WBC (Bld) 0.1 % Critically low 0.2-2.0 [facility] Comment on above: Performed By: #### C BC #### [facility] [address] [address] [address] Ashlie Hills EO # 0.0 103/ul Normal 0.0-0.7 [facility] Comment on above: Performed By: #### C BC #### [facility] [address] [address] [address] Ashlie Hills Eosinophils/100 WBC (Bld) 0.0 % Critically low 0.9-7.0 [facility] Comment on above: Performed By: #### C BC #### [facility] [address] [address] [address] Ashlie Hills Erythrocyte distribution width (RBC) [Ratio] 14.9 % Normal 11.0-15.0 [facility] Comment on above: Performed By: #### C BC #### [facility] [address] [address] [address] Ashlie Hills Hematocrit (Bld) [Volume fraction] 46.2 % Normal 36.0-48.0 [facility] Comment on above: Performed By: #### C BC #### [facility] [address] [address] [address] Ashlie Hills Hemoglobin (Bld) [Mass/Vol] 14.7 g/dL Normal 12.0-16.0 [facility] Comment on above: Performed By: #### C BC #### [facility] [address] [address] [address] Ashlie Hills IG # 0.06 10e3/ul Critically high 0.00-0.03 [facility] Comment on above: Performed By: #### C BC #### [facility] [address] [place] [address] Dr. Ashlie Hills IG % 0.4 % Normal 0.0-0.5 [facility] Comment on above: Performed By: #### C BC #### [facility] [address] [place] [address] Dr. Ashlie Hills LYMPH # 1.3 103/ul Normal 1.2-3.8 [facility] Comment on above: Performed By: #### C BC #### [facility] [address] [place] [address] Dr. Ashlie Hills Lymphocytes/100 WBC (Bld) 9.4 % Critically low 20.5-60.0 [facility] Comment on above: Performed By: #### C BC #### [facility] [address] [place] [address] Dr. Ashlie Hills MANUAL DIFF REQ NO Normal [facility] Comment on above: Performed By: #### C BC #### [facility] [address] [place] [address] Dr. Ashlie Hills MCH (RBC) [Entitic mass] 28.4 pg Normal 26.7-34.0 [facility] Comment on above: Performed By: #### C BC #### [facility] [address] [place] [address] Dr. Ashlie Hills MCHC (RBC) [Mass/Vol] 31.8 g/dL Normal 29.9-35.2 [facility] Comment on above: Performed By: #### C BC #### [facility] [address] [place] [address] Dr. Ashlie Hills MCV (RBC) [Entitic vol] 89.4 fL Normal 81.0-99.0 [facility] Comment on above: Performed By: #### C BC #### [facility] [address] [place] [address] Dr. Ashlie Hills MONO # 0.5 103/ul Normal 0.3-0.8 [facility] Comment on above: Performed By: #### C BC #### [facility] [address] [place] [address] Dr. Ashlie Hills Monocytes/100 WBC (Bld) 3.4 % Normal 1.7-12.0 [facility] Comment on above: Performed By: #### C BC #### [facility] [address] [place] [address] Dr. Ashlie Hills NEUT # 11.8 103/ul Critically high 1.4-6.5 [facility] Comment on above: Performed By: #### C BC #### [facility] [address] [place] [address] Dr. Ashlie Hills Neutrophils/100 WBC (Bld) 86.7 % Critically high 43.0-75.0 [facility] Comment on above: Performed By: #### C BC #### [facility] [address] [place] [address] Dr. Ashlie Hills Platelet mean volume (Bld) [Entitic vol] 12.6 fL Normal 9.5-13.5 [facility] Comment on above: Performed By: #### C BC #### [facility] [address] [place] [address] Dr. Ashlie Hills PLT 133 103/ul Critically low 150-450 [facility] Comment on above: Performed By: #### C BC #### [facility] [address] [place] [address] Dr. Ashlie Hills RBC 5.17 106/ul Normal 4.20-5.40 [facility] Comment on above: Performed By: #### C BC #### [facility] [address] [place] [address] Dr. Ashlei Hills WBC 13.6 103/ul Critically high 4.0-11.0 [facility] Comment on above: Performed By: #### C BC #### [facility] [address] [place] [address] Dr. Ashlie Hills MAGNESIUMon 12-06-2022 Magnesium [Mass/Vol] 2.2 mg/dL Normal 1.8-2.4 [facility] Comment on above: Performed By: #### I NFLUAB #### [facility] [address] [address] [address] Ashlie Hills POINT OF CARE GLUCOSEon 11-08 Glucose [Mass/Vol] 340 mg/dL Critically high -106 [facility] Comment on above: Performed By: #### P OCGLUC #### [facility] [address] [place] [address] Dr. Ashlie Hills Glucose [Mass/Vol] 276 mg/dL Critically high -106 [facility] Comment on above: Performed By: #### C BC #### [facility] [address] [address] [address] Ashlie Hills Glucose [Mass/Vol] 333 mg/dL Critically high [address] [place] [address] Comment on above: Performed By: #### C BC #### [facility] [address] [place] [address] Dr. Ashlie Hills PROF CHEM 8 (BAS METB)on Anion gap [Moles/Vol] 10.9 mmol/L Normal [facility] Comment on above: Performed By: #### I NFLUAB #### [facility] [address] [address] [address] Ashlie Hills Calcium [Mass/Vol] 9.3 mg/dL Normal 8.5-10.1 [facility] Comment on above: Performed By: #### I NFLUAB #### [facility] [address] [place] [address] Dr. Ashlie Hills Chloride [Moles/Vol] 103 mmol/L Normal 98-107 [facility] Comment on above: Performed By: #### I NFLUAB #### [facility] [address] [place] [address] Dr. Ashlie Hills CO2 [Moles/Vol] 31.2 mmol/L Normal 21.0-32.0 [facility] Comment on above: Performed By: #### I NFLUAB #### [facility] [address] [place] [address] Dr. Ashlie Hills Creatinine [Mass/Vol] 0.96 mg/dL Normal 0.55-1.02 [facility] Comment on above: Performed By: #### I NFLUAB #### [facility] [address] [address] [address] Ashlie Hills EGFR-AF GHANAIAN >60 Normal >=60 [facility] Comment on above: Performed By: #### I NFLUAB #### [facility] [address] [address] [address] Ashlie Hills EGFR-NON AF GHANAIAN >60 Normal >=60 [facility] Comment on above: Performed By: #### I NFLUAB #### [facility] [address] [address] [address] Ashlie Hills Glucose [Mass/Vol] 288 mg/dL Critically high 74-106 [facility] Comment on above: Performed By: #### I NFLUAB #### [facility] [address] [place] [address] Dr. Ashlie Hills Potassium [Moles/Vol] 5.1 mmol/L Normal 3.5-5.1 [facility] Comment on above: Performed By: #### I NFLUAB #### [facility] [address] [address] [address] Ashlie Hills Sodium [Moles/Vol] 140 mmol/L Normal 136-145 [facility] Comment on above: Performed By: #### I NFLUAB #### [facility] [address] [address] [address] Ashlie Hills Urea nitrogen [Mass/Vol] 30.0 mg/dL Critically high 7.0-18.0 [facility] Comment on above: Performed By: #### I NFLUAB #### [facility] [address] [address] [address] Ashlie Hills Urea nitrogen/Creatinine [Mass ratio] 31.2 mg/mg Normal [facility] Comment on above: Performed By: #### I NFLUAB #### [facility] [address] [place] [address] Dr. Ashlie Hills CBC AUTO DIFFon 12-05-2022 BASO # 0.0 103/ul Normal 0.0-0.1 [facility] Comment on above: Performed By: #### C BC #### [facility] [address] [address] [address] Ashlie Hills Basophils/100 WBC (Bld) 0.4 % Normal 0.2-2.0 [facility] Comment on above: Performed By: #### C BC #### [facility] [address] [place] [address] Dr. Ashlie Hills EO # 0.0 103/ul Normal 0.0-0.7 [facility] Comment on above: Performed By: #### C BC #### [facility] [address] [place] [address] Dr. Ashlie Hills Eosinophils/100 WBC (Bld) 0.0 % Critically low 0.9-7.0 [facility] Comment on above: Performed By: #### C BC #### [facility] [address] [place] [address] Dr. Ashlie Hills Erythrocyte distribution width (RBC) [Ratio] 14.8 % Normal 11.0-15.0 [facility] Comment on above: Performed By: #### C BC #### [facility] [address] [place] [address] Dr. Ashlie Hills Hematocrit (Bld) [Volume fraction] 49.9 % Critically high 36.0-48.0 [facility] Comment on above: Performed By: #### C BC #### [facility] [address] [place] [address] Dr. Ashlie Hills Hemoglobin (Bld) [Mass/Vol] 15.7 g/dL Normal 12.0-16.0 [facility] Comment on above: Performed By: #### C BC #### [facility] [address] [place] [address] Dr. Ashlie Hills IG # 0.04 10e3/ul Critically high 0.00-0.03 [facility] Comment on above: Performed By: #### C BC #### [facility] [address] [place] [address] Dr. Ashlie Hills IG % 0.5 % Normal 0.0-0.5 [facility] Comment on above: Performed By: #### C BC #### [facility] [address] [address] [address] Ashlie Hills LYMPH # 1.1 103/ul Critically low 1.2-3.8 [facility] Comment on above: Performed By: #### C BC #### [facility] [address] [address] [address] Ashlie Hills Lymphocytes/100 WBC (Bld) 12.7 % Critically low 20.5-60.0 [facility] Comment on above: Performed By: #### C BC #### [facility] [address] [place] [address] Dr. Ashlie Hills MANUAL DIFF REQ NO Normal [facility] Comment on above: Performed By: #### C BC #### [facility] [address] [place] [address] Dr. Ashlie Hills MCH (RBC) [Entitic mass] 28.1 pg Normal 26.7-34.0 [facility] Comment on above: Performed By: #### C BC #### [facility] [address] [place] [address] Dr. Ashlie Hills MCHC (RBC) [Mass/Vol] 31.5 g/dL Normal 29.9-35.2 [facility] Comment on above: Performed By: #### C BC #### [facility] [address] [place] [address] Dr. Ashlie Hills MCV (RBC) [Entitic vol] 89.3 fL Normal 81.0-99.0 [facility] Comment on above: Performed By: #### C BC #### [facility] [address] [address] [address] Ashlie Hills MONO # 0.1 103/ul Critically low 0.3-0.8 [facility] Comment on above: Performed By: #### C BC #### [facility] [address] [place] [address] Dr. Ashlie Hills Monocytes/100 WBC (Bld) 1.3 % Critically low 1.7-12.0 [facility] Comment on above: Performed By: #### C BC #### [facility] [address] [address] [address] Ashlie Hills NEUT # 7.2 103/ul Critically high 1.4-6.5 [facility] Comment on above: Performed By: #### C BC #### [facility] [address] [address] [address] Ashlie Hills Neutrophils/100 WBC (Bld) 85.1 % Critically high 43.0-75.0 [facility] Comment on above: Performed By: #### C BC #### [facility] [address] [address] [address] Ashlie Hills Platelet mean volume (Bld) [Entitic vol] 12.2 fL Normal 9.5-13.5 [facility] Comment on above: Performed By: #### C BC #### [facility] [address] [address] [address] Ashlie Hills PLT 116 103/ul Critically low 150-450 [facility] Comment on above: Performed By: #### C BC #### [facility] [address] [address] [address] Ashlie Hills RBC 5.59 106/ul Critically high 4.20-5.40 [facility] Comment on above: Performed By: #### C BC #### [facility] [address] [address] [address] Ashlie Hills WBC 8.5 103/ul Normal 4.0-11.0 [facility] Comment on above: Performed By: #### C BC #### [facility] [address] [place] [address] Dr. Ashlie Hills CTA CHEST WO W [...] by: HATTIE GOFF Date: 2022-12-05 01:52 Normal [facility] MAGNESIUMon 12-05-2022 Magnesium [Mass/Vol] 2.1 mg/dL Normal 1.8-2.4 [facility] Comment on above: Performed By: #### P OCGLUC #### [facility] [address] [address] [address] Ashlie Hills POINT OF CARE GLUCOSEon 11-08 Glucose [Mass/Vol] 293 mg/dL Critically high -106 [facility] Comment on above: Performed By: #### P OCGLUC #### [facility] [address] [address] [address] Ashlie Hills Glucose [Mass/Vol] 269 mg/dL Critically high -106 [facility] Comment on above: Performed By: #### P OCGLUC #### [facility] [address] [address] [address] Ashlie Hills Glucose [Mass/Vol] 223 mg/dL Critically high -106 [facility] Comment on above: Performed By: #### C VDAGS #### [facility] [address] [address] [address] Ashlie Hills PROF CHEM 8 (BAS METB)on Anion gap [Moles/Vol] 11.6 mmol/L Normal [facility] Comment on above: Performed By: #### P OCGLUC #### [facility] [address] [address] [address] Ashlie Hills Calcium [Mass/Vol] 9.2 mg/dL Normal 8.5-10.1 [facility] Comment on above: Performed By: #### P OCGLUC #### [facility] [address] [address] [address] Ashlie Hills Chloride [Moles/Vol] 102 mmol/L Normal 98-107 [facility] Comment on above: Performed By: #### P OCGLUC #### [facility] [address] [address] [address] Ashlie Hills CO2 [Moles/Vol] 28.7 mmol/L Normal 21.0-32.0 [facility] Comment on above: Performed By: #### P OCGLUC #### [facility] [address] [address] [address] Ashlie Hills Creatinine [Mass/Vol] 1.04 mg/dL Critically high 0.55-1.02 [facility] Comment on above: Performed By: #### P OCGLUC #### [facility] [address] [address] [address] Ashlie Hills EGFR-AF GHANAIAN >60 Normal >=60 [facility] Comment on above: Performed By: #### P OCGLUC #### [facility] [address] [address] [address] Ashlie Hills EGFR-NON AF GHANAIAN 56 mL/min/1.73m2 Critically low >=60 [facility] Comment on above: Performed By: #### P OCGLUC #### [facility] [address] [address] [address] Ashlie Hills Glucose [Mass/Vol] 231 mg/dL Critically high 74-106 [facility] Comment on above: Performed By: #### P OCGLUC #### [facility] [address] [address] [address] Ashlie Hills Potassium [Moles/Vol] 4.3 mmol/L Normal 3.5-5.1 [facility] Comment on above: Performed By: #### P OCGLUC #### [facility] [address] [address] [address] Ashlie Hills Sodium [Moles/Vol] 138 mmol/L Normal 136-145 [facility] Comment on above: Performed By: #### P OCGLUC #### [facility] [address] [address] [address] Ashlie Hills Urea nitrogen [Mass/Vol] 17.0 mg/dL Normal 7.0-18.0 [facility] Comment on above: Performed By: #### P OCGLUC #### [facility] [address] [place] [address] Dr. Ashlie Hills Urea nitrogen/Creatinine [Mass ratio] 16.3 mg/mg Normal [facility] Comment on above: Performed By: #### P OCGLUC #### [facility] [address] [address] [address] Ashlie Hills RESPIRATORY PANEL PLUSon Adenovirus Not detected Normal NOT DETECTED [facility] Comment on above: Performed By: #### C VDAGS #### [facility] [address] [place] [address] Dr. Ashlie Shaffer. Parapertusis Not detected Normal NOT DETECTED [facility] Comment on above: Performed By: #### C VDAGS #### [facility] [address] [address] [address] Ashlie Shaffer. Pertussis Not detected Normal NOT DETECTED [facility] Comment on above: Performed By: #### C VDAGS #### [facility] [address] [address] [address] Ashlie Hills Chlamydia Pneumoniae Not detected Normal NOT DETECTED [facility] Comment on above: Performed By: #### C VDAGS #### [facility] [address] [place] [address] Dr. Ashlie Hills Coronavirus 229E Not detected Normal NOT DETECTED [facility] Comment on above: Performed By: #### C VDAGS #### [facility] [address] [address] [address] Ashlie Hills Coronavirus HKU1 Not detected Normal NOT DETECTED [facility] Comment on above: Performed By: #### C VDAGS #### [facility] [address] [place] [address] Dr. Ashlie Hills Coronavirus NL63 Not detected Normal NOT DETECTED [facility] Comment on above: Performed By: #### C VDAGS #### [facility] [address] [place] [address] Dr. Ashlie Hills Coronavirus OC43 Not detected Normal NOT DETECTED [facility] Comment on above: Performed By: #### C VDAGS #### [facility] [address] [place] [address] Dr. Ashlie Hills Influenza A H1 Not detected Normal NOT DETECTED [facility] Comment on above: Performed By: #### C VDAGS #### [facility] [address] [place] [address] Dr. Ashlie Hills Influenza A H1 2009 Not detected Normal NOT DETECTED [facility] Comment on above: Performed By: #### C VDAGS #### [facility] [address] [place] [address] Dr. Ashlie Hills Influenza A H3 Not detected Normal NOT DETECTED [facility] Comment on above: Performed By: #### C VDAGS #### [facility] [address] [place] [address] Dr. Ashlie Hills Influenza B Not detected Normal NOT DETECTED [facility] Comment on above: Performed By: #### C VDAGS #### [facility] [address] [place] [address] Dr. Ashlie Hills Metapneumovirus Not detected Normal NOT DETECTED [facility] Comment on above: Performed By: #### C VDAGS #### [facility] [address] [place] [address] Dr. Ashlie Hills Mycoplas. Pneumoniae Not detected Normal NOT DETECTED [facility] Comment on above: Performed By: #### C VDAGS #### [facility] [address] [place] [address] Dr. Ashlie Hills Parainfluenza 1 Not detected Normal NOT DETECTED [facility] Comment on above: Performed By: #### C VDAGS #### [facility] [address] [place] [address] Dr. Ashlie Hills Parainfluenza 2 Not detected Normal NOT DETECTED [facility] Comment on above: Performed By: #### C VDAGS #### [facility] [address] [place] [address] Dr. Ashlie Hills Parainfluenza 3 Detected Abnormal NOT DETECTED The [facility] Comment on above: Performed By: #### C VDAGS #### [facility] [address] [place] [address] Dr. Ashlie Hills Parainfluenza 4 Not detected Normal NOT DETECTED [facility] Comment on above: Performed By: #### C VDAGS #### [facility] [address] [place] [address] Dr. Ashlie Hills Rhino/Enterovirus Not detected Normal NOT DETECTED [facility] Comment on above: Performed By: #### C VDAGS #### [facility] [address] [place] [address] Dr. Ashlie Hills RP2 Header 1 RESPIRATORY PANEL: VIRUSES Normal [facility] Comment on above: Performed By: #### C VDAGS #### [facility] [address] [place] [address] Dr. Ashlie Hills RP2 Header 2 RESPIRATORY PANEL: BACTERIA Normal [facility] Comment on above: Performed By: #### C VDAGS #### [facility] [address] [place] [address] Dr. Ashlie Hills RSV Not detected Normal NOT DETECTED [facility] Comment on above: Performed By: #### C VDAGS #### [facility] [address] [place] [address] Dr. Ashlie Hills SARS-CoV-2 (COVID-19) RNA MADDY+probe Ql (Unsp spec) Not detected Normal NOT DETECTED [facility] Comment on above: Performed By: #### C VDAGS #### [facility] [address] [place] [address] Dr. Ashlie Hills XR CHEST 1 Von [...] POWER Date: 2022-12-04 22:23 Normal [facility] BLOOD GASES BTYon 12-04-2022 02 MODE ROOM AIR Normal [facility] Comment on above: Performed By: #### C BC #### [facility] [address] [place] [address] Dr. Ashlie Hills ALLENS TEST Positive Normal [facility] Comment on above: Performed By: #### C BC #### [facility] [address] [place] [address] Dr. Ashlie Hills Base excess Calc (Bld) [Moles/Vol] 5.4 mmol/L Critically high -2.0-2.0 [facility] Comment on above: Performed By: #### C BC #### [facility] [address] [place] [address] Dr. Ashlie Hills BIPAP PRESSURE Normal [facility] Comment on above: Performed By: #### C BC #### [facility] [address] [place] [address] Dr. Ashlie Hills CPAP [facility] Comment on above: Performed By: #### C BC #### [facility] [address] [place] [address] Dr. Ashlie Hills FIO2 Normal [facility] Comment on above: Performed By: #### C BC #### [facility] [address] [place] [address] Dr. Ashlie Hills HCO3 (Bld) [Moles/Vol] 30.8 mmol/L Critically high 22.0-26 .0 [facility] Comment on above: Performed By: #### C BC #### [facility] [address] [place] [address] Dr. Ashlie Hills LPM Normal [facility] Comment on above: Performed By: #### C BC #### [facility] [address] [place] [address] Dr. Ashlie Hills MINUTE VOLUME Normal [facility] Comment on above: Performed By: #### C BC #### [facility] [address] [place] [address] Dr. Ashlie Hills Oxygen (Bld) [Partial pressure] 46.3 mm[Hg] Critically low 80.0-100.0 [facility] Comment on above: Performed By: #### C BC #### [facility] [address] [place] [address] Dr. Ashlie Hills Oxygen saturation in Blood 83.9 % Critically low 95.0-100.0 [facility] Comment on above: Performed By: #### C BC #### [facility] [address] [place] [address] Dr. Ashlie Hills PCO2 54.2 mmHg Critically high 35.0-45.0 [facility] Comment on above: Performed By: #### C BC #### [facility] [address] [place] [address] Dr. Ashlie Hills PEEP [facility] Comment on above: Performed By: #### C BC #### [facility] [address] [place] [address] Dr. Ashlie Hills pH (Bld) 7.363 [pH] Normal 7.350-7.450 [facility] Comment on above: Performed By: #### C BC #### [facility] [address] [place] [address] Dr. Ashlie Hills PIP [facility] Comment on above: Performed By: #### C BC #### [facility] [address] [place] [address] Dr. Ashlie Hills PS [facility] Comment on above: Performed By: #### C BC #### [facility] [address] [place] [address] Dr. Ashlie Hills PUNCTURE SITE LR [facility] Comment on above: Performed By: #### C BC #### [facility] [address] [place] [address] Dr. Ashlie Hills RATE [facility] Comment on above: Performed By: #### C BC #### [facility] [address] [place] [address] Dr. Ashlie Hills VENT MODE [facility] Comment on above: Performed By: #### C BC #### [facility] [address] [place] [address] Dr. Ashlie Hills [facility] Comment on above: Performed By: #### C BC #### [facility] [address] [place] [address] Dr. Ashlie Hills BNPon 12-04-2022 Natriuretic peptide B (Bld) [Mass/Vol] 76.0 pg/mL Normal <=900.0 [facility] Comment on above: Performed By: #### P OCGLUC #### [facility] [address] [place] [address] Dr. Ashlie Hills CBC AUTO DIFFon 12-04-2022 BASO # 0.1 103/ul Normal 0.0-0.1 [facility] Comment on above: Performed By: #### C BC #### [facility] [address] [place] [address] Dr. Ashlie Hills Basophils/100 WBC (Bld) 0.6 % Normal 0.2-2.0 [facility] Comment on above: Performed By: #### C BC #### [facility] [address] [place] [address] Dr. Ashlie Hills EO # 0.2 103/ul Normal 0.0-0.7 [facility] Comment on above: Performed By: #### C BC #### [facility] [address] [place] [address] Dr. Ashlie Hills Eosinophils/100 WBC (Bld) 1.9 % Normal 0.9-7.0 [facility] Comment on above: Performed By: #### C BC #### [facility] [address] [place] [address] Dr. Ashlie Hills Erythrocyte distribution width (RBC) [Ratio] 15.0 % Normal 11.0-15.0 [facility] Comment on above: Performed By: #### C BC #### [facility] [address] [place] [address] Dr. Ashlie Hills Hematocrit (Bld) [Volume fraction] 49.1 % Critically high 36.0-48.0 [facility] Comment on above: Performed By: #### C BC #### [facility] [address] [place] [address] Dr. Ashlie Hills Hemoglobin (Bld) [Mass/Vol] 15.6 g/dL Normal 12.0-16.0 [facility] Comment on above: Performed By: #### C BC #### [facility] [address] [place] [address] Dr. Ashlie Hills IG # 0.02 10e3/ul Normal 0.00-0.03 [facility] Comment on above: Performed By: #### C BC #### [facility] [address] [place] [address] Dr. Ashlie Hills IG % 0.2 % Normal 0.0-0.5 [facility] Comment on above: Performed By: #### C BC #### [facility] [address] [place] [address] Dr. Ashlie Hills LYMPH # 2.8 103/ul Normal 1.2-3.8 [facility] Comment on above: Performed By: #### C BC #### [facility] [address] [place] [address] Dr. Ashlie Hills Lymphocytes/100 WBC (Bld) 29.9 % Normal 20.5-60.0 [facility] Comment on above: Performed By: #### C BC #### [facility] [address] [place] [address] Dr. Ashlie Hills MANUAL DIFF REQ NO Normal [facility] Comment on above: Performed By: #### C BC #### [facility] [address] [place] [address] Dr. Ashlie Hills MCH (RBC) [Entitic mass] 28.5 pg Normal 26.7-34.0 [facility] Comment on above: Performed By: #### C BC #### [facility] [address] [place] [address] Dr. Ashlie Hills MCHC (RBC) [Mass/Vol] 31.8 g/dL Normal 29.9-35.2 [facility] Comment on above: Performed By: #### C BC #### [facility] [address] [place] [address] Dr. Ashlie Hills MCV (RBC) [Entitic vol] 89.8 fL Normal 81.0-99.0 [facility] Comment on above: Performed By: #### C BC #### [facility] [address] [place] [address] Dr. Ashlie Hills MONO # 1.0 103/ul Critically high 0.3-0.8 [facility] Comment on above: Performed By: #### C BC #### [facility] [address] [place] [address] Dr. Ashlie Hills Monocytes/100 WBC (Bld) 10.6 % Normal 1.7-12.0 [facility] Comment on above: Performed By: #### C BC #### [facility] [address] [place] [address] Dr. Ashlie Hills NEUT # 5.3 103/ul Normal 1.4-6.5 [facility] Comment on above: Performed By: #### C BC #### [facility] [address] [place] [address] Dr. Ashlie Hills Neutrophils/100 WBC (Bld) 56.8 % Normal 43.0-75.0 [facility] Comment on above: Performed By: #### C BC #### [facility] [address] [place] [address] Dr. Ashlie Hills Platelet mean volume (Bld) [Entitic vol] 12.5 fL Normal 9.5-13.5 [facility] Comment on above: Performed By: #### C BC #### [facility] [address] [place] [address] Dr. Ashlie Hills PLT 109 103/ul Critically low 150-450 [facility] Comment on above: Performed By: #### C BC #### [facility] [address] [place] [address] Dr. Ashlie Hills RBC 5.47 106/ul Critically high 4.20-5.40 [facility] Comment on above: Performed By: #### C BC #### [facility] [address] [place] [address] Dr. Ashlie Hills WBC 9.4 103/ul Normal 4.0-11.0 [facility] Comment on above: Performed By: #### C BC #### [facility] [address] [place] [address] Dr. Ashlie Hills PROF 14(COMP METB)on 023 Albumin [Mass/Vol] 2.9 g/dL Critically low 3.4-5.0 [facility] Comment on above: Performed By: #### C BC #### [facility] [address] [place] [address] Dr. Ashlie Hills Albumin/Globulin [Mass ratio] 0.6 {ratio} Normal [facility] Comment on above: Performed By: #### C BC #### [facility] [address] [place] [address] Dr. Ashlie Hills ALP [Catalytic activity/Vol] 64 U/L Normal 46-116 [facility] Comment on above: Performed By: #### C BC #### [facility] [address] [place] [address] Dr. Ashlie Hills ALT [Catalytic activity/Vol] 16 U/L Normal 14-59 [facility] Comment on above: Performed By: #### C BC #### [facility] [address] [place] [address] Dr. Ashlie Hills Anion gap [Moles/Vol] 9.6 mmol/L Normal [facility] Comment on above: Performed By: #### C BC #### [facility] [address] [address] [address] Ashlie Hills AST [Catalytic activity/Vol] 16 U/L Normal 15-37 [facility] Comment on above: Performed By: #### C BC #### [facility] [address] [address] [address] Ashlie Hills Bilirubin [Mass/Vol] 0.5 mg/dL Normal 0.2-1.0 [facility] Comment on above: Performed By: #### C BC #### [facility] [address] [address] [address] Ashlie Hills Calcium [Mass/Vol] 8.7 mg/dL Normal 8.5-10.1 [facility] Comment on above: Performed By: #### C BC #### [facility] [address] [address] [address] Ashlie Hills Chloride [Moles/Vol] 103 mmol/L Normal 98-107 [facility] Comment on above: Performed By: #### C BC #### [facility] [address] [address] [address] Ashlie Hills CO2 [Moles/Vol] 30.7 mmol/L Normal 21.0-32.0 [facility] Comment on above: Performed By: #### C BC #### [facility] [address] [address] [address] Ashile Hills Creatinine [Mass/Vol] 0.96 mg/dL Normal 0.55-1.02 [facility] Comment on above: Performed By: #### C BC #### [facility] [address] [address] [address] Ashlie Hills EGFR-AF GHANAIAN >60 Normal >=60 [facility] Comment on above: Performed By: #### C BC #### [facility] [address] [address] [address] Ashlie Hills EGFR-NON AF GHANAIAN >60 Normal >=60 [facility] Comment on above: Performed By: #### C BC #### [facility] [address] [address] [address] Ashlie Hills Globulin (S) [Mass/Vol] 4.7 g/dL Normal [facility] Comment on above: Performed By: #### C BC #### [facility] [address] [address] [address] Ashlie Hills Glucose [Mass/Vol] 170 mg/dL Critically high 74-106 T [facility] Comment on above: Performed By: #### C BC #### [facility] [address] [address] [address] Ashlie Hills Potassium [Moles/Vol] 4.3 mmol/L Normal 3.5-5.1 [facility] Comment on above: Performed By: #### C BC #### [facility] [address] [place] [address] Dr. Ashlie Hills Protein [Mass/Vol] 7.6 g/dL Normal 6.4-8.2 [facility] Comment on above: Performed By: #### C BC #### [facility] [address] [place] [address] Dr. Ashlie Hills Sodium [Moles/Vol] 139 mmol/L Normal 136-145 [facility] Comment on above: Performed By: #### C BC #### [facility] [address] [place] [address] Dr. Ashlie Hills Urea nitrogen [Mass/Vol] 16.0 mg/dL Normal 7.0-18.0 [facility] Comment on above: Performed By: #### C BC #### [facility] [address] [place] [address] Dr. Ashlie Hills Urea nitrogen/Creatinine [Mass ratio] 16.7 mg/mg Normal [facility] Comment on above: Performed By: #### C BC #### [facility] [address] [place] [address] Dr. Ashlie Hills SYMPTOMATIC COVID-19 ANTIGEN on 12-04-2022 EUA Statement SEE BELOW Normal [facility] [...] Performed By: #### C VDAGS #### [facility] [address] [place] [address] Dr. Ashlie Hills SARS-CoV-2 (COVID-19) RNA MADDY+probe Ql (Unsp spec) Negative Normal NEGATIVE [facility] Comment on above: Performed By: #### C VDAGS #### [facility] [address] [place] [address] Dr. Ashlie Hills TROPONIN, HIGH SENSITIVITYon 12-04-2022 HSTROP 8.9 pg/mL Normal 4.0-51.3 [facility] Comment on above: Result Comment: CUT- OFF POINTS HAVE BEEN ESTABLISHED BASED ON THE FOURTH UNIVERSAL DEFINITIONS OF MYOCARDIAL INFARCTION. THE UPPER REFERENCE LIMIT (URL) OF TROPONIN, DEFINED THE 99TH PERCENTILE OF cTnI DISTRIBUTION IN A REFERENCE POPULATION, HAS BEEN CONFIRMED THE DECISION THRESHOLD FOR [place] DIAGNOSIS. Performed By: #### P OCGLUC #### [facility] [address] [place] [address] Dr. Ashlie Hills MICROALBUMIN, RAND URon - mALB 35.8 mg/dL Critically high <=30.0 [facility] Comment on above: Performed By: #### C VDAGS #### [facility] [address] [place] [address] Dr. Ashlie Hills UA RANDOM W/MICROSCOPICon BACTERIA NONE SEEN Normal NONE SEEN [facility] Comment on above: Performed By: #### C VDAGS #### [facility] [address] [place] [address] Dr. Ashlie Hills Bilirubin Ql (U) Negative Normal NEGATIVE [facility] Comment on above: Performed By: #### C VDAGS #### [facility] [address] [place] [address] Dr. Ashlie Hills CAST SEEN Abnormal NONE SEEN [facility] Comment on above: Performed By: #### C VDAGS #### [facility] [address] [place] [address] Dr. Ashlie Hills Clarity (U) CLEAR Normal CLEAR [facility] Comment on above: Performed By: #### C VDAGS #### [facility] [address] [place] [address] Dr. Ashlie Hills Color (U) YELLOW Normal YELLOW [facility] Comment on above: Performed By: #### C VDAGS #### [facility] [address] [place] [address] Dr. Ashlie Hills Crystals LM Nom (Urine sed) NONE SEEN Normal NONE SEEN [facility] Comment on above: Performed By: #### C VDAGS #### [facility] [address] [place] [address] Dr. Ashlie Hills Epithelial cells LM Ql (Urine sed) MODERATE Abnormal NONE SEEN /RARE [facility] Comment on above: Performed By: #### C VDAGS #### [facility] [address] [place] [address] Dr. Ashlie Hills Glucose Ql (U) Negative Normal NEGATIVE [facility] Comment on above: Performed By: #### C VDAGS #### [facility] [address] [place] [address] Dr. Ashlie Hills Hemoglobin Ql (U) TRACE-INTACT Abnormal NEGATIVE [facility] Comment on above: Performed By: #### C VDAGS #### [facility] [address] [place] [address] Dr. Ashlie Hills Ketones Ql (U) Negative Normal NEGATIVE [facility] Comment on above: Performed By: #### C VDAGS #### [facility] [address] [place] [address] Dr. Ashlie Hills LEUKOCYTES Negative Normal NEGATIVE [facility] Comment on above: Performed By: #### C VDAGS #### [facility] [address] [place] [address] Dr. Ashlie Hills MUCOUS NONE SEEN Normal NONE SEEN [facility] Comment on above: Performed By: #### C VDAGS #### [facility] [address] [place] [address] Dr. Ashlie Hills Nitrite Ql (U) Negative Normal NEGATIVE [facility] Comment on above: Performed By: #### C VDAGS #### [facility] [address] [place] [address] Dr. Ashlie Hills pH (U) 5.0 [pH] Normal 5-9 [facility] Comment on above: Performed By: #### C VDAGS #### [facility] [address] [place] [address] Dr. Ashlie Hills RBC 0-2 Normal 0-2 [facility] Comment on above: Performed By: #### C VDAGS #### [facility] [address] [place] [address] Dr. Ashlie Hills SPEC GRAVITY 1.030 Abnormal 1.005-<=1.025 [facility] Comment on above: Performed By: #### C VDAGS #### [facility] [address] [place] [address] Dr. Ashlie Hills UA PROTEIN 100 mg/dl Abnormal NEGATIVE/ TRACE [facility] Comment on above: Performed By: #### C VDAGS #### [facility] [address] [place] [address] Dr. Ashlie Hills Urobilinogen Qn (U) 0.2 {Little'U}/dL Normal 0.2 - 1. 0 [facility] Comment on above: Performed By: #### C VDAGS #### [facility] [address] [place] [address] Dr. Ashlie Hills WBC NONE SEEN Normal NONE SEEN [facility] Comment on above: Performed By: #### C VDAGS #### [facility] [address] [place] [address] Dr. Ashlie Hills CBC AUTO DIFFon 05-17-2023 BASO # 0.0 103/ul Normal 0.0-0.1 [facility] Comment on above: Performed By: #### C BC #### [facility] [address] [address] [address] Ashlie Hills Basophils/100 WBC (Bld) 0.3 % Normal 0.2-2.0 [facility] Comment on above: Performed By: #### C BC #### [facility] [address] [address] [address] Ashlie Hills EO # 0.4 103/ul Normal 0.0-0.7 [facility] Comment on above: Performed By: #### C BC #### [facility] [address] [place] [address] Dr. Ashlie Hills Eosinophils/100 WBC (Bld) 3.0 % Normal 0.9-7.0 [facility] Comment on above: Performed By: #### C BC #### [facility] [address] [place] [address] Dr. Ashlie Hills Erythrocyte distribution width (RBC) [Ratio] 15.3 % Critically high 11.0-15.0 [facility] Comment on above: Performed By: #### C BC #### [facility] [address] [place] [address] Dr. Ashlie Hills Hematocrit (Bld) [Volume fraction] 52.4 % Critically high 36.0-48.0 [facility] Comment on above: Performed By: #### C BC #### [facility] [address] [place] [address] Dr. Ashlie Hills Hemoglobin (Bld) [Mass/Vol] 16.8 g/dL Critically high 12.0-16.0 [facility] Comment on above: Performed By: #### C BC #### [facility] [address] [place] [address] Dr. Ashlie Hills IG # 0.04 10e3/ul Critically high 0.00-0.03 [facility] Comment on above: Performed By: #### C BC #### [facility] [address] [place] [address] Dr. Ashlie Hills IG % 0.3 % Normal 0.0-0.5 [facility] Comment on above: Performed By: #### C BC #### [facility] [address] [place] [address] Dr. Ashlie Hills LYMPH # 4.5 103/ul Critically high 1.2-3.8 [facility] Comment on above: Performed By: #### C BC #### [facility] [address] [place] [address] Dr. Ashlie Hills Lymphocytes/100 WBC (Bld) 33.2 % Normal 20.5-60.0 [facility] Comment on above: Performed By: #### C BC #### [facility] [address] [place] [address] Dr. Ashlie Hills MANUAL DIFF REQ NO Normal [facility] Comment on above: Performed By: #### C BC #### [facility] [address] [place] [address] Dr. Ashlie Hills MCH (RBC) [Entitic mass] 28.0 pg Normal 26.7-34.0 [facility] Comment on above: Performed By: #### C BC #### [facility] [address] [place] [address] Dr. Ashlie Hills MCHC (RBC) [Mass/Vol] 32.1 g/dL Normal 29.9-35.2 [facility] Comment on above: Performed By: #### C BC #### [facility] [address] [place] [address] Dr. Ashlie Hills MCV (RBC) [Entitic vol] 87.3 fL Normal 81.0-99.0 [facility] Comment on above: Performed By: #### C BC #### [facility] [address] [place] [address] Dr. Ashlie Hills MONO # 0.8 103/ul Normal 0.3-0.8 [facility] Comment on above: Performed By: #### C BC #### [facility] [address] [place] [address] Dr. Ashlie Hills Monocytes/100 WBC (Bld) 5.7 % Normal 1.7-12.0 [facility] Comment on above: Performed By: #### C BC #### [facility] [address] [address] [address] Ashlie Hills NEUT # 7.8 103/ul Critically high 1.4-6.5 [facility] Comment on above: Performed By: #### C BC #### [facility] [address] [address] [address] Ashlie Hills Neutrophils/100 WBC (Bld) 57.5 % Normal 43.0-75.0 [facility] Comment on above: Performed By: #### C BC #### [facility] [address] [place] [address] Dr. Ashlie Hills Platelet mean volume (Bld) [Entitic vol] 12.0 fL Normal 9.5-13.5 [facility] Comment on above: Performed By: #### C BC #### [facility] [address] [address] [address] Ashlie Hills PLT 152 103/ul Normal 150-450 [facility] Comment on above: Performed By: #### C BC #### [facility] [address] [place] [address] Dr. Ashlie Hills RBC 6.00 106/ul Critically high 4.20-5.40 [facility] Comment on above: Performed By: #### C BC #### [facility] [address] [place] [address] Dr. Ashlie Hills WBC 13.6 103/ul Critically high 4.0-11.0 [facility] Comment on above: Performed By: #### C BC #### [facility] [address] [place] [address] Dr. Ashlie Hills LIPID PROFILEon 11-22-2022 CHOL-HDL RATIO NORM SEE BELOW Normal [facility] Comment on above: Result Comment: 3.3 - 4.4 LOW RISK 4.4 - 7.1 AVERAGE RISK 7.1 - 11.0 MODERATE RISK >11.0 HIGH RISK Performed By: #### C BC #### [facility] [address] [address] [address] Ashlie Hills Cholesterol [Mass/Vol] 139 mg/dL Normal <=200 Th [facility] Comment on above: Performed By: #### C BC #### [facility] [address] [address] [address] Ashlie Hills Cholesterol in HDL [Mass/Vol] 35 mg/dL Critically low 40-60 [facility] Comment on above: Performed By: #### C BC #### [facility] [address] [address] [address] Ashlie Hills Cholesterol in LDL [Mass/Vol] 67.4 mg/dL Normal [facility] Comment on above: Performed By: #### C BC #### [facility] [address] [address] [address] Ashlie Hills Cholesterol.total/Chol esterol in HDL [Mass ratio] 4.0 {ratio} Normal [facility] Comment on above: Performed By: #### C BC #### [facility] [address] [address] [address] Ashlie Hills HDL NORMAL > or = 60 mg/dl - LOW CARDIOVASCULAR RISK <40 mg/dl - HIGH CARDIOVASCULAR RISK Normal [facility] Comment on above: Performed By: #### C BC #### [facility] [address] [address] [address] Ashlie Hills LDL CALC NORMAL SEE BELOW Normal [facility] Comment on above: Result Comment: <100 mg/dl OPTIMAL 100 - 129 mg/dl NEAR OR ABOVE OPTIMAL 130 - 159 mg/dl BORDERLINE HIGH 160 - 189 mg/dl HIGH >190 mg/dl VERY HIGH Performed By: #### C BC #### [facility] [address] [address] [address] Ashlie Hills Triglyceride [Mass/Vol] 183 mg/dL Critically high <=150 [facility] Comment on above: Performed By: #### C BC #### [facility] [address] [address] [address] Ashlie Hills VLDL CALC 36.6 mg/dL Normal [facility] Comment on above: Performed By: #### C BC #### [facility] [address] [place], [place] [address] Dr. 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 LOCATION: [facility] BREAST COMPOSITION: Almost entirely fatty. FINDINGS: [...] M.D. on 11/22/2022 at 12:09 Normal [facility] PROF 14(COMP METB)on 023 Albumin [Mass/Vol] 3.0 g/dL Critically low 3.4-5.0 Th e [facility] Comment on above: Performed By: #### C BC #### [facility] [address] [place], [place] [address] Dr. Ashlie Hills Albumin/Globulin [Mass ratio] 0.6 {ratio} Normal [facility] Comment on above: Performed By: #### C BC #### [facility] [address] [address] [address] Ashlie Hills ALP [Catalytic activity/Vol] 68 U/L Normal 46-116 [facility] Comment on above: Performed By: #### C BC #### [facility] [address] [address] [address] Ashlie Hills ALT [Catalytic activity/Vol] 14 U/L Normal 14-59 [facility] Comment on above: Performed By: #### C BC #### [facility] [address] [place] [address] Dr. Ashlie Hills Anion gap [Moles/Vol] 12.1 mmol/L Normal Th e [facility] Comment on above: Performed By: #### C BC #### [facility] [address] [place] [address] Dr. Ashlie Hills AST [Catalytic activity/Vol] 9 U/L Critically low 15-37 [facility] Comment on above: Performed By: #### C BC #### [facility] [address] [place] [address] Dr. Ashlie Hills Bilirubin [Mass/Vol] 0.4 mg/dL Normal 0.2-1.0 [facility] Comment on above: Performed By: #### C BC #### [facility] [address] [place] [address] Dr. Ashlie Hills Calcium [Mass/Vol] 9.0 mg/dL Normal 8.5-10.1 [facility] Comment on above: Performed By: #### C BC #### [facility] [address] [place] [address] Dr. Ashlie Hills Chloride [Moles/Vol] 105 mmol/L Normal 98-107 [facility] Comment on above: Performed By: #### C BC #### [facility] [address] [place] [address] Dr. Ashlie Hills CO2 [Moles/Vol] 30.7 mmol/L Normal 21.0-32.0 [facility] Comment on above: Performed By: #### C BC #### [facility] [address] [address] [address] Ashlie Hills Creatinine [Mass/Vol] 0.77 mg/dL Normal 0.55-1.02 [facility] Comment on above: Performed By: #### C BC #### [facility] [address] [address] [address] Ashlie Hills EGFR-AF GHANAIAN >60 Normal >=60 [facility] Comment on above: Performed By: #### C BC #### [facility] [address] [place] [address] Dr. Ashlie Hills EGFR-NON AF GHANAIAN >60 Normal >=60 [facility] Comment on above: Performed By: #### C BC #### [facility] [address] [place] [address] Dr. Ashlie Hills Globulin (S) [Mass/Vol] 4.8 g/dL Normal [facility] Comment on above: Performed By: #### C BC #### [facility] [address] [place] [address] Dr. Ashlie Hills Glucose [Mass/Vol] 162 mg/dL Critically high 74-106 [facility] Comment on above: Performed By: #### C BC #### [facility] [address] [place] [address] Dr. Ashlie Hills Potassium [Moles/Vol] 3.8 mmol/L Normal 3.5-5.1 [facility] Comment on above: Performed By: #### C BC #### [facility] [address] [place] [address] Dr. Ashlie Hills Protein [Mass/Vol] 7.8 g/dL Normal 6.4-8.2 [facility] [place] [facility] Comment on above: Performed By: #### C BC #### [facility] [address] [place] [address] Dr. Ashlie Hills Sodium [Moles/Vol] 144 mmol/L Normal 136-145 [facility] Comment on above: Performed By: #### C BC #### [facility] [address] [place] [address] Dr. Ashlie Hills Urea nitrogen [Mass/Vol] 24.0 mg/dL Critically high 7.0-18.0 [facility] Comment on above: Performed By: #### C BC #### [facility] [address] [place] [address] Dr. Ashlie Hills Urea nitrogen/Creatinine [Mass ratio] 31.2 mg/mg Normal [facility] Comment on above: Performed By: #### C BC #### [facility] [address] [place] [address] Dr. Ashlie Hills CBC AUTO DIFFon 10-05-2022 BASO # 0.1 103/ul Normal 0.0-0.1 [facility] Comment on above: Performed By: #### C BC #### [facility] [address] [place] [address] Dr. Ashlie Hills Basophils/100 WBC (Bld) 0.6 % Normal 0.2-2.0 [facility] Comment on above: Performed By: #### C BC #### [facility] [address] [place] [address] Dr. Ashlie Hills EO # 0.3 103/ul Normal 0.0-0.7 [facility] Comment on above: Performed By: #### C BC #### [facility] [address] [place] [address] Dr. Ashlie Hills Eosinophils/100 WBC (Bld) 2.1 % Normal 0.9-7.0 [facility] Comment on above: Performed By: #### C BC #### [facility] [address] [place] [address] Dr. Ashlie Hills Erythrocyte distribution width (RBC) [Ratio] 15.9 % Critically high 11.0-15.0 [facility] Comment on above: Performed By: #### C BC #### [facility] [address] [place] [address] Dr. Ashlie Hills Hematocrit (Bld) [Volume fraction] 51.8 % Critically high 36.0-48.0 [facility] Comment on above: Performed By: #### C BC #### [facility] [address] [place] [address] Dr. Ashlie Hills Hemoglobin (Bld) [Mass/Vol] 16.6 g/dL Critically high 12.0-16.0 [facility] Comment on above: Performed By: #### C BC #### [facility] [address] [place] [address] Dr. Ashlie Hills IG # 0.03 10e3/ul Normal 0.00-0.03 [facility] Comment on above: Performed By: #### C BC #### [facility] [address] [place] [address] Dr. Ashlie Hills IG % 0.2 % Normal 0.0-0.5 [facility] Comment on above: Performed By: #### C BC #### [facility] [address] [place] [address] Dr. Ashlie Hills LYMPH # 3.9 103/ul Critically high 1.2-3.8 [facility] Comment on above: Performed By: #### C BC #### [facility] [address] [place] [address] Dr. Ashlie Hills Lymphocytes/100 WBC (Bld) 31.7 % Normal 20.5-60.0 [facility] Comment on above: Performed By: #### C BC #### [facility] [address] [place] [address] Dr. Ashlie Hills MANUAL DIFF REQ NO Normal [facility] Comment on above: Performed By: #### C BC #### [facility] [address] [place] [address] Dr. Ashlie Hills MCH (RBC) [Entitic mass] 27.9 pg Normal 26.7-34.0 [facility] Comment on above: Performed By: #### C BC #### [facility] [address] [place] [address] Dr. Ashlie Hills MCHC (RBC) [Mass/Vol] 32.0 g/dL Normal 29.9-35.2 [facility] Comment on above: Performed By: #### C BC #### [facility] [address] [place] [address] Dr. Ashlie Hills MCV (RBC) [Entitic vol] 87.1 fL Normal 81.0-99.0 [facility] Comment on above: Performed By: #### C BC #### [facility] [address] [place] [address] Dr. Ashlie Hills MONO # 0.7 103/ul Normal 0.3-0.8 [facility] Comment on above: Performed By: #### C BC #### [facility] [address] [address] [address] Ashlie Hills Monocytes/100 WBC (Bld) 5.8 % Normal 1.7-12.0 [facility] Comment on above: Performed By: #### C BC #### [facility] [address] [place] [address] Dr. Ashlie Hills NEUT # 7.3 103/ul Critically high 1.4-6.5 [facility] Comment on above: Performed By: #### C BC #### [facility] [address] [place] [address] Dr. Ashlie Hills Neutrophils/100 WBC (Bld) 59.6 % Normal 43.0-75.0 [facility] Comment on above: Performed By: #### C BC #### [facility] [address] [place] [address] Dr. Ashlie Hills Platelet mean volume (Bld) [Entitic vol] 11.7 fL Normal 9.5-13.5 [facility] Comment on above: Performed By: #### C BC #### [facility] [address] [place] [address] Dr. Ashlie Hills PLT 117 103/ul Critically low 150-450 [facility] Comment on above: Performed By: #### C BC #### [facility] [address] [place], [place] [id number] Dr. Ashlie Hills RBC 5.95 106/ul Critically high 4.20-5.40 [facility] Comment on above: Performed By: #### C BC #### [facility] [address] [place] [address] Dr. Ashlie Hills WBC 12.3 103/ul Critically high 4.0-11.0 [facility] Comment on above: Performed By: #### C BC #### [facility] [address] [place] [address] ABD/PELV W CONon [...] PICKARD Date: 2022-10-05 13:13 Normal [facility] URINE PROFILEon 3 Bilirubin Ql (U) Negative Normal NEGATIVE [facility] Comment on above: Performed By: #### P OCGLUC #### [facility] [address] [place] [address] Dr. Ashlie Hills Clarity (U) CLEAR Normal CLEAR [facility] Comment on above: Performed By: #### P OCGLUC #### [facility] [address] [place] [address] Dr. Ashlie Hills Color (U) YELLOW Normal YELLOW [facility] Comment on above: Performed By: #### P OCGLUC #### [facility] [address] [place] [address] Dr. Ashlie HOBBS A micrscopic examination will be performed if indicated. Normal [facility] Comment on above: Performed By: #### P OCGLUC #### [facility] [address] [address] [address] Ashlie Hills Glucose Ql (U) Negative Normal NEGATIVE [facility] Comment on above: Performed By: #### P OCGLUC #### [facility] [address] [address] [address] Ashlie Hills Hemoglobin Ql (U) Negative Normal NEGATIVE [facility] Comment on above: Performed By: #### P OCGLUC #### [facility] [address] [address] [address] Ashlie Hills Ketones Ql (U) Negative Normal NEGATIVE [facility] Comment on above: Performed By: #### P OCGLUC #### [facility] [address] [place] [address] Dr. Ashlie Hills LEUKOCYTES Negative Normal NEGATIVE [facility] Comment on above: Performed By: #### P OCGLUC #### [facility] [address] [address] [address] Ashlie Hills Nitrite Ql (U) Negative Normal NEGATIVE [facility] Comment on above: Performed By: #### P OCGLUC #### [facility] [address] [place] [address] Dr. Ashlie Hills pH (U) 6.0 [pH] Normal 5-9 [facility] Comment on above: Performed By: #### P OCGLUC #### [facility] [address] [place] [address] Dr. Ashlie Hills Protein (U) [Mass/Vol] 100 mg/dL Abnormal NEGAT YURY/ TRACE [facility] Comment on above: Performed By: #### P OCGLUC #### [facility] [address] [place] [address] Dr. Ashlie Hills SPEC GRAVITY 1.010 Normal 1.005-<=1.025 [facility] Comment on above: Performed By: #### P OCGLUC #### [facility] [address] [address] [address] Ashlie Hills UR MICRO IND INDICATED Normal [facility] Comment on above: Performed By: #### P OCGLUC #### [facility] [address] [place] [address] Dr. Ashlie Hills Urobilinogen Qn (U) 1.0 {Little'U}/dL Normal 0.2 - 1. 0 [facility] Comment on above: Performed By: #### P OCGLUC #### [facility] [address] [place] [address] Dr. Ashlie Hills LIPASEon 10-05-2022 Lipase [Catalytic activity/Vol] 1771.0 U/L Critically high 73.0-393.0 [facility] Comment on above: Performed By: #### C BC #### [facility] [address] [place] [address] Dr. Ashlie Hills PREG HCG QUALon 10-05-2022 , QUAL Negative Normal NEGATIVE [facility] Comment on above: Performed By: #### P OCGLUC #### [facility] [address] [place] [address] Dr. Ashlie Hills PROF 14(COMP METB)on 023 Albumin [Mass/Vol] 3.2 g/dL Critically low 3.4-5.0 [facility] Comment on above: Performed By: #### C BC #### [facility] [address] [place] [address] Dr. Ashlie Hills Albumin/Globulin [Mass ratio] 0.7 {ratio} Normal [facility] Comment on above: Performed By: #### C BC #### [facility] [address] [place] [address] Dr. Ashlie Hills ALP [Catalytic activity/Vol] 70 U/L Normal 46-116 [facility] Comment on above: Performed By: #### C BC #### [facility] [address] [place] [address] Dr. Ashlie Hills ALT [Catalytic activity/Vol] 11 U/L Critically low 14-59 [facility] Comment on above: Performed By: #### C BC #### [facility] [address] [address] [address] Ashlie Hills Anion gap [Moles/Vol] 10.3 mmol/L Normal [facility] Comment on above: Performed By: #### C BC #### [facility] [address] [address] [address] Ashlie Hills AST [Catalytic activity/Vol] 11 U/L Critically low 15-37 [facility] Comment on above: Performed By: #### C BC #### [facility] [address] [address] [address] Ashlie Hills Bilirubin [Mass/Vol] 0.9 mg/dL Normal 0.2-1.0 [facility] Comment on above: Performed By: #### C BC #### [facility] [address] [place] [address] Dr. Ashlie Hills Calcium [Mass/Vol] 9.3 mg/dL Normal 8.5-10.1 [facility] Comment on above: Performed By: #### C BC #### [facility] [address] [place] [address] Dr. Ashlie Hills Chloride [Moles/Vol] 105 mmol/L Normal 98-107 [facility] Comment on above: Performed By: #### C BC #### [facility] [address] [place] [address] Dr. Ashlie Hills CO2 [Moles/Vol] 30.6 mmol/L Normal 21.0-32.0 [facility] Comment on above: Performed By: #### C BC #### [facility] [address] [place] [address] Dr. Ashlie Hills Creatinine [Mass/Vol] 0.62 mg/dL Normal 0.55-1.02 [facility] Comment on above: Performed By: #### C BC #### [facility] [address] [address] [address] Ashlie Hills EGFR-AF GHANAIAN >60 Normal >=60 [facility] Comment on above: Performed By: #### C BC #### [facility] [address] [place] [address] Dr. Ashlie Hills EGFR-NON AF GHANAIAN >60 Normal >=60 [facility] Comment on above: Performed By: #### C BC #### [facility] [address] [place] [address] Dr. Ashlie Hills Globulin (S) [Mass/Vol] 4.6 g/dL Normal [facility] Comment on above: Performed By: #### C BC #### [facility] [address] [place] [address] Dr. Ashlie Hills Glucose [Mass/Vol] 85 mg/dL Normal 74-106 [facility] Comment on above: Performed By: #### C BC #### [facility] [address] [place] [address] Dr. Ashlie Hills Potassium [Moles/Vol] 3.9 mmol/L Normal 3.5-5.1 [facility] Comment on above: Performed By: #### C BC #### [facility] [address] [place] [address] Dr. Ashlie Hills Protein [Mass/Vol] 7.8 g/dL Normal 6.4-8.2 [facility] Comment on above: Performed By: #### C BC #### [facility] [address] [place] [address] Dr. Ashlie Hills Sodium [Moles/Vol] 142 mmol/L Normal 136-145 [facility] Comment on above: Performed By: #### C BC #### [facility] [address] [place] [address] Dr. Ashlie Hills Urea nitrogen [Mass/Vol] 12.0 mg/dL Normal 7.0-18.0 [facility] Comment on above: Performed By: #### C BC #### [facility] [address] [place] [address] Dr. Ashlie Hills Urea nitrogen/Creatinine [Mass ratio] 19.4 mg/mg Normal [facility] Comment on above: Performed By: #### C BC #### [facility] [address] [place] [address] Dr. Ashlie Hills URINE MICROSCOPIC ONLYon BACTERIA TRACE Abnormal NONE SEEN [facility] Comment on above: Performed By: #### P OCGLUC #### [facility] [address] [place] [address] Dr. Ashlie Hills Bacteria identified Cx Nom (U) NOT INDICATED Normal [facility] Comment on above: Performed By: #### P OCGLUC #### [facility] [address] [place] [address] Dr. Ashlie Hills CAST NONE SEEN Normal NONE SEEN [facility] Comment on above: Performed By: #### P OCGLUC #### [facility] [address] [place] [address] Dr. Ashlie Hills Crystals LM Nom (Urine sed) NONE SEEN Normal NONE SEEN [facility] Comment on above: Performed By: #### P OCGLUC #### [facility] [address] [place] [address] Dr. Ashlie Hills Epithelial cells LM Ql (Urine sed) MODERATE Abnormal NONE SEEN /RARE [facility] Comment on above: Performed By: #### P OCGLUC #### [facility] [address] [place] [address] Dr. Ashlie Hills MUCOUS NONE SEEN Normal NONE SEEN [facility] Comment on above: Performed By: #### P OCGLUC #### [facility] [address] [place] [address] Dr. Ashlie Hills RBC 0-2 Normal 0-2 [facility] Comment on above: Performed By: #### P OCGLUC #### [facility] [address] [place] [address] Dr. Ashlie Hills WBC 0-2 Abnormal NONE SEEN [facility] Comment on above: Performed By: #### P OCGLUC #### [facility] [address] [place] [address] Dr. Ashlie Hills Covid-19 PCR ([facility])on 09-06 SARS-CoV-2 (COVID-19) RNA MADDY+probe Ql (Unsp spec) Detected Abnormal NOT DETECTED [facility] Comment on above: Result Comment: This test is not yet approved or cleared by the [place] FDA. When there are no FDA-approved or cleared tests available, and other criteria are met, FDA can make tests available under an emergency access mechanism called an Emergency Use Authorization (EUA). The EUA for this test is supported by the [place] of Health and Human Service's declaration that [...] Performed By: #### C VDAGS #### [facility] [address] [place] [address] Dr. Ashlie Hills [facility] Normal [facility] Comment on above: Result Comment: Nega tive for Flu A protein angiten. Infection due to Flu A cannot be ruled out. Flu A angiten in the sample may be below the detection limit of the test. Performed By: #### I NFLUAB #### [facility] [address] [place] [address] Dr. Ashlie Hills INFLUBNEG SEE BELOW Normal [facility] Comment on above: Result Comment: Nega tive for Flu B protein antigen. Infection due to Flu B cannot be ruled out. Flu B antigen in the sample may be below the detection limit of the test. Performed By: #### I NFLUAB #### [facility] [address] [place] [address] Dr. Ashlie Hills INFLUENZA A AG Negative Normal NEGATIVE SEE COMMENT [facility] Comment on above: Performed By: #### I NFLUAB #### [facility] [address] [place] [address] Dr. Ashlie Hills INFLUENZA B AG Negative Normal NEGATIVE SEE COMMENT [facility] Comment on above: Performed By: #### I NFLUAB #### [facility] [address] [place] [address] ABD/PELV W CONon [...] to at least 10/21/2018, unchanged. https://www.ncbi.nlm .nih.gov/pmc/article s/[id number]/ Electronically authenticated by: COLLIN HUERTAS Date: 2022-07-27 14:56 Normal [facility] CREATININEon 07-18-2022 Creatinine [Mass/Vol] 0.81 mg/dL Normal 0.55-1.02 [facility] Comment on above: Performed By: #### C BC #### [facility] [address] [place] [address] Dr. Ashlie Hills EGFR-AF GHANAIAN >60 Normal >=60 [facility] Comment on above: Performed By: #### C BC #### [facility] [address] [place] [address] Dr. Ashlie Hills EGFR-NON AF GHANAIAN >60 Normal >=60 [facility] Comment on above: Performed By: #### C BC #### [facility] [address] [place] [address] LOW EXT W [...] VELOZ Date: 2022-07-18 14:58 Normal [facility] XR KNEE LT 1_2 Von 3 [...] BAUTISTA Date: 2022-07-18 12:00 Normal [facility] Covid-19 PCR ([facility])on 06-09 SARS-CoV-2 (COVID-19) RNA MADDY+probe Ql (Unsp spec) Not detected Normal NOT DETECTED [facility] Comment on above: Result Comment: This test is not yet approved or cleared by the [place] FDA. When there are no FDA-approved or cleared tests available, and other criteria are met, FDA can make tests available under an emergency access mechanism called an Emergency Use Authorization (EUA). The EUA for this test is supported by the [place] of Health and Human Service's (HHS's) declaration [...] Performed By: #### C BC #### [facility] [address] [place] [address] Dr. Ashlie Hills INFLUENZA A AND B AGon 07-06 INFLUANE SEE BELOW Normal [facility] Comment on above: Result Comment: Nega tive for Flu A protein angiten. Infection due to Flu A cannot be ruled out. Flu A angiten in the sample may be below the detection limit of the test. Performed By: #### C BC #### [facility] [address] [place] [address] Dr. Ashlie Hills INFLUBNEG SEE BELOW Normal [facility] Comment on above: Result Comment: Nega tive for Flu B protein antigen. Infection due to Flu B cannot be ruled out. Flu B antigen in the sample may be below the detection limit of the test. Performed By: #### C BC #### [facility] [address] [place] [address] Dr. Ashlie Hills INFLUENZA A AG Negative Normal NEGATIVE SEE COMMENT [facility] Comment on above: Performed By: #### C BC #### [facility] [address] [place] [address] Dr. Ashlie Hills INFLUENZA B AG Negative Normal NEGATIVE SEE COMMENT [facility] Comment on above: Performed By: #### C BC #### [facility] [address] [place] [address] Dr. Ashlie Hills POINT OF CARE GLUCOSEon - Glucose [Mass/Vol] 108 mg/dL Critically high 74-106 T [facility] Comment on above: Performed By: #### C BC #### [facility] [address] [place] [address] Dr. Ashlie Hills RAGHU by IFAon 03-07-2022 Antinuclear Antibodies, IFA Negative Normal [facility] Comment on above: Result Comment: Nega tive <1:80 Borderline 1:80 Positive >1:80 ICAP nomenclature: AC-0 For more information about Hep-2 cell patterns use ANApatterns.org, the official website for the International Consensus on Antinuclear Antibody (RAGHU) Patterns (ICAP). Performed By: #### A ROSE #### [facility] [address] [place] [address] Dr. Ashlie Hills IMMUNOFIXATION (TREVON), URINEo n 03-07-2022 TREVON Interpretation:U Comment Normal [facility] Comment on above: Result Comment: No m onoclonality detected. Performed By: #### C BC #### [facility] [address] [place] [address] Dr. Ashlie Hills IMMUNOFIXATION(TREVON),PROTEIN ELEC(PE),[facility] 03-07-2022 Albumin [Mass/Vol] 3.0 g/dL Normal 2.9-4.4 [facility] Comment on above: Performed By: #### I NFLUAB #### [facility] [address] [place] [address] Dr. Ashlie Hills Albumin/Globulin [Mass ratio] 0.8 {ratio} Normal 0.7-1.7 [facility] Comment on above: Performed By: #### I NFLUAB #### [facility] [address] [place] [address] Dr. Ashlie Hills Ftkuf-4-Vhfujjwe 0.3 g/dL Normal 0.0-0.4 [facility] Comment on above: Performed By: #### I NFLUAB #### [facility] [address] [place] [address] Dr. Ashlie Hills Cfoof-8-Jurbrvha 1.0 g/dL Normal 0.4-1.0 [facility] Comment on above: Performed By: #### I NFLUAB #### [facility] [address] [place] [address] Dr. Ashlie Hills Beta Globulin 1.8 g/dL Critically high 0.7-1.3 [facility] Comment on above: Performed By: #### I NFLUAB #### [facility] [address] [place] [address] Dr. Ashlie Hills Free Anthem Lt Chains,S 45.2 mg/L Critically high 3.3-19.4 [facility] Comment on above: Performed By: #### I NFLUAB #### [facility] [address] [place] [address] Dr. Ashlie Hills Free Lambda Lt Chains,S 40.3 mg/L Critically high 5.7-26.3 [facility] Comment on above: Performed By: #### I NFLUAB #### [facility] [address] [address] [address] Ashlie Hills Gamma Globulin 0.8 g/dL Normal 0.4-1.[address] [facility] Comment on above: Performed By: #### I NFLUAB #### [facility] [address] [place] [address] Dr. Ashlie Hills Globulin (S) [Mass/Vol] 3.9 g/dL Normal 2.2-3.9 [facility] Comment on above: Performed By: #### I NFLUAB #### [facility] [address] [place] [address] Dr. Ashlie Hills Immunofixation Result, Serum Comment Normal [facility] Comment on above: Result Comment: No m onoclonality detected. Performed By: #### I NFLUAB #### [facility] [address] [place] [address] Dr. Ashlie Hills Immunoglobulin A, Qn, Serum 776 mg/dL Critically high 87-352 [facility] Comment on above: Performed By: #### I NFLUAB #### [facility] [address] [place] [address] Dr. Ashlie Hills Immunoglobulin G, Qn, Serum 955 mg/dL Normal 586-1602 [facility] Comment on above: Performed By: #### I NFLUAB #### [facility] [address] [place] [address] Dr. Ashlie Hills Immunoglobulin M, Qn, Serum 39 mg/dL Normal 26-217 [facility] Comment on above: Performed By: #### I NFLUAB #### [facility] [address] [place] [address] Dr. Ashlie Hills Anthem/Lambda Ratio, S 1.12 Normal 0.26-1.65 [facility] Comment on above: Performed By: #### I NFLUAB #### [facility] [address] [place] [address] Dr. Ashlie Hills M-Bright Not Observed Normal Not Observed [facility] Comment on above: Performed By: #### I NFLUAB #### [facility] [address] [place] [address] Dr. Ashlie Hills PDF . Normal [facility] Comment on above: Performed By: #### I NFLUAB #### [facility] [address] [place] [address] Dr. Ashlie Hills Please note: Comment Normal [facility] Comment on above: Result Comment: Prot ein electrophoresis scan will follow via computer, mail, or film sound engineer delivery. Performed By: #### I NFLUAB #### [facility] [address] [place] [address] Dr. Ashlie Hills Protein [Mass/Vol] 6.9 g/dL Normal 6.0-8.5 [facility] Comment on above: Performed By: #### I NFLUAB #### [facility] [address] [place] [address] Dr. Ashlie Hills C-PEPTIDE, SERUMon C-Peptide, Serum 3.1 ng/mL Normal 1.1-4.4 [facility] Comment on above: Result Comment: C-Pe ptide reference interval is for fasting patients. Performed By: #### C PEPT #### [facility] [address] [place] [address] Dr. Ashlie Hills HEP B SURFACE ANTIGEN SCREEN on 03-04-2022 HBsAg Screen Negative Normal Negative [facility] Comment on above: Performed By: #### C BC #### [facility] [address] [place] [address] Dr. Ashlie Hills HEPATITIS C VIRUS AB W/ REFL EX QUANTon 03-04-2022 HCV AB <0.1 Normal 0.0-0.9 [facility] Comment on above: Performed By: #### I NFLUAB #### [facility] [address] [address] [address] Ashlie Hills Interpretation: Comment Normal [facility] Comment on above: Result Comment: Nega tive Not infected with HCV, unless recent infection is suspected or other evidence exists to indicate HCV infection. Performed By: #### I NFLUAB #### [facility] [address] [address] [address] Ashlie Hills MICROALBUMIN/ CREATININE RAT IOon 03-04-2022 Albumin, Urine 367.4 ug/mL Normal Not Estab. [facility] Comment on above: Performed By: #### C BC #### [facility] [address] [address] [address] Ashlie Hills Albumin/ Creatinine Ratio 239 mg/g creat Critically high 0-29 [facility] Comment on above: Result Comment: Norm al: 0 - 29 Moderately increased: 30 - 300 Severely increased: >300 Performed By: #### C BC #### [facility] [address] [address] [address] Ashlie Hills Creatinine, Urine 153.9 mg/dL Normal Not Estab. [facility] Comment on above: Performed By: #### C BC #### [facility] [address] [address] [address] Ashlie Hills VIT D 25-OH LABCORPon 2021 Vitamin D, 25-Hydroxy <4.0 Critically low 30.0-100.0 [facility] Comment on above: Result Comment: Graciela min D deficiency has been defined by the [place] of [employer] and an Endocrine Society practice guideline as a level of serum 25-OH vitamin D less than 20 ng/mL (1,2). The Endocrine Society went on to further define vitamin D insufficiency as a level between 21 and 29 ng/mL (2). 1. IOM ([place] of [employer]). 2010. Dietary reference intakes for calcium and D. [place]: The National Academies Press. 2. Lynda MF, Keely [place], Leandra LOPEZ, et al. Evaluation, treatment, and prevention of vitamin D deficiency: an Endocrine Society clinical practice guideline. JCEM. 2010; 96(7):1911-30. Performed By: #### C BC #### [facility] [address] [place] [address] Dr. Ashlie Hills GLYCOHEMOGLOBIN A1Con 2021 ADA RECOMMENDATION SEE BELOW Normal [facility] Comment on above: Result Comment: ADA RECOMMENDED LIMIT 4.0 - 6.0 ADA THERAPEUTIC TARGET < 7.0 ACTION SUGGESTED > 7.0 Performed By: #### C VDAGS #### [facility] [address] [place] [address] Dr. Ashlie Hills Glucose [Mass/Vol] 295 mg/dL Normal [facility] Comment on above: Performed By: #### C VDAGS #### [facility] [address] [place] [address] Dr. Ashlie Hills HbA1c (Bld) [Mass fraction] 11.9 % Critically high 4.5-6.2 [facility] Comment on above: Performed By: #### C VDAGS #### [facility] [address] [place] [address] Dr. Ashlie Hills HEMOGRAM AND PLATELon 2021 Hematocrit (Bld) [Volume fraction] 56.3 % Critically high 36.0-48.0 [facility] Comment on above: Performed By: #### C VDAGS #### [facility] [address] [place] [address] Dr. Ashlie Hills Hemoglobin (Bld) [Mass/Vol] 18.0 g/dL Critically high 12.0-16.0 [facility] Comment on above: Performed By: #### C VDAGS #### [facility] [address] [place] [address] Dr. Ashlie Hills MCH (RBC) [Entitic mass] 29.5 pg Normal 26.7-34.0 [facility] Comment on above: Performed By: #### C VDAGS #### [facility] [address] [place] [address] Dr. Ashlie Hills MCHC (RBC) [Mass/Vol] 32.0 g/dL Normal 29.9-35.2 [facility] Comment on above: Performed By: #### C VDAGS #### [facility] [address] [address] [address] Ashlie Hills MCV (RBC) [Entitic vol] 92.1 fL Normal 81.0-99.0 [facility] Comment on above: Performed By: #### C VDAGS #### [facility] [address] [address] [address] Ashlie Hills PLT 123 103/ul Critically low 150-450 [facility] Comment on above: Performed By: #### C VDAGS #### [facility] [address] [address] [address] Ashlie Hills RBC 6.11 106/ul Critically high 4.20-5.40 [facility] Comment on above: Performed By: #### C VDAGS #### [facility] [address] [address] [address] Ashlie Hills WBC 16.4 103/ul Critically high 4.0-11.0 [facility] Comment on above: Performed By: #### C VDAGS #### [facility] [address] [address] [address] Ashlie Hills LIPID PROFILEon 03-03-2022 CHOL-HDL RATIO NORM SEE BELOW Normal [facility] Comment on above: Result Comment: 3.3 - 4.4 LOW RISK 4.4 - 7.1 AVERAGE RISK 7.1 - 11.0 MODERATE RISK >11.0 HIGH RISK Performed By: #### C VDAGS #### [facility] [address] [place] [address] Dr. Ashlie Hills Cholesterol [Mass/Vol] 159 mg/dL Normal <=200 [facility] Comment on above: Performed By: #### C VDAGS #### [facility] [address] [address] [address] Ashlie Hills Cholesterol in HDL [Mass/Vol] 40 mg/dL Normal 40-60 [facility] Comment on above: Performed By: #### C VDAGS #### [facility] [address] [address] [address] Ashlie Hills Cholesterol in LDL [Mass/Vol] 81.8 mg/dL Normal [facility] Comment on above: Performed By: #### C VDAGS #### [facility] [address] [address] [address] Ashlie Hills Cholesterol.total/Chol esterol in HDL [Mass ratio] 4.0 {ratio} Normal [facility] Comment on above: Performed By: #### C VDAGS #### [facility] [address] [address] [address] Ashlie Hills HDL NORMAL > or = 60 mg/dl - LOW CARDIOVASCULAR RISK <40 mg/dl - HIGH CARDIOVASCULAR RISK Normal [facility] Comment on above: Performed By: #### C VDAGS #### [facility] [address] [place] [address] Dr. Ashlie Hills LDL CALC NORMAL SEE BELOW Normal [facility] Comment on above: Result Comment: <100 mg/dl OPTIMAL 100 - 129 mg/dl NEAR OR ABOVE OPTIMAL 130 - 159 mg/dl BORDERLINE HIGH 160 - 189 mg/dl HIGH >190 mg/dl VERY HIGH Performed By: #### C VDAGS #### [facility] [address] [address] [address] Ashlie Hills Triglyceride [Mass/Vol] 186 mg/dL Critically high <=150 [facility] Comment on above: Performed By: #### C VDAGS #### [facility] [address] [address] [address] Ashlie Hills VLDL CALC 37.2 mg/dL Normal [facility] Comment on above: Performed By: #### C VDAGS #### [facility] [address] [address] [address] Ashlie Hills RENAL FUNCTION PANELon 03-03 Albumin [Mass/Vol] 3.1 g/dL Critically low 3.4-5.0 [facility] Comment on above: Performed By: #### C BC #### [facility] [address] [address] [address] Ashlie Hills Calcium [Mass/Vol] 9.2 mg/dL Normal 8.5-10.1 [facility] Comment on above: Performed By: #### C BC #### [facility] [address] [address] [address] Ashlie Hills Chloride [Moles/Vol] 102 mmol/L Normal 98-107 [facility] Comment on above: Performed By: #### C BC #### [facility] [address] [address] [address] Ashlie Hills CO2 [Moles/Vol] 31.9 mmol/L Normal 21.0-32.0 [facility] Comment on above: Performed By: #### C BC #### [facility] [address] [address] [address] Ashlei Hills Creatinine [Mass/Vol] 0.68 mg/dL Normal 0.55-1.02 [facility] Comment on above: Performed By: #### C BC #### [facility] [address] [place] [address] Dr. Ashlie Hills EGFR-AF GHANAIAN >60 Normal >=60 [facility] Comment on above: Performed By: #### C BC #### [facility] [address] [place] [address] Dr. Ashlie Hills EGFR-NON AF GHANAIAN >60 Normal >=60 [facility] Comment on above: Performed By: #### C BC #### [facility] [address] [place] [address] Dr. Ashlie Hills Glucose [Mass/Vol] 131 mg/dL Critically high 74-106 [facility] Comment on above: Performed By: #### C BC #### [facility] [address] [place] [address] Dr. Ashlie Hills Phosphate [Mass/Vol] 4.0 mg/dL Normal 2.6-4.7 [facility] Comment on above: Performed By: #### C BC #### [facility] [address] [place] [address] Dr. Ashlie Hills Potassium [Moles/Vol] 4.0 mmol/L Normal 3.5-5.1 [facility] Comment on above: Performed By: #### C BC #### [facility] [address] [place] [address] Dr. Ashlie Hills Sodium [Moles/Vol] 141 mmol/L Normal 136-145 [facility] Comment on above: Performed By: #### C BC #### [facility] [address] [place] [address] Dr. Ashlie Hills Urea nitrogen [Mass/Vol] 17.0 mg/dL Normal 7.0-18.0 [facility] Comment on above: Performed By: #### C BC #### [facility] [address] [place] [address] Dr. Ashlie Hills UA RANDOM W/MICROSCOPICon BACTERIA NONE SEEN Normal NONE SEEN [facility] Comment on above: Performed By: #### I NFLUAB #### [facility] [address] [place] [address] Dr. Ahslie Hills Bilirubin Ql (U) Negative Normal NEGATIVE [facility] Comment on above: Performed By: #### I NFLUAB #### [facility] [address] [place] [address] Dr. Ashlie Hills CAST NONE SEEN Normal NONE SEEN [facility] Comment on above: Performed By: #### I NFLUAB #### [facility] [address] [place] [address] Dr. Ashlie Hills Clarity (U) CLEAR Normal CLEAR [facility] Comment on above: Performed By: #### I NFLUAB #### [facility] [address] [place] [address] Dr. Ashlie Hills Color (U) YELLOW Normal YELLOW [facility] Comment on above: Performed By: #### I NFLUAB #### [facility] [address] [place] [address] Dr. Ashlie Hills Crystals LM Nom (Urine sed) NONE SEEN Normal NONE SEEN [facility] Comment on above: Performed By: #### I NFLUAB #### [facility] [address] [place] [address] Dr. Ashlie Hills Epithelial cells LM Ql (Urine sed) FEW Abnormal NONE SEEN /RARE [facility] Comment on above: Performed By: #### I NFLUAB #### [facility] [address] [address] [address] Ashlie Hills Glucose Ql (U) Negative Normal NEGATIVE [facility] Comment on above: Performed By: #### I NFLUAB #### [facility] [address] [address] [address] Ashlie Hills Hemoglobin Ql (U) Negative Normal NEGATIVE [facility] Comment on above: Performed By: #### I NFLUAB #### [facility] [address] [address] [address] Ashlie Hills Ketones Ql (U) Negative Normal NEGATIVE [facility] Comment on above: Performed By: #### I NFLUAB #### [facility] [address] [place] [address] Dr. Ashlie Hills LEUKOCYTES Negative Normal NEGATIVE [facility] Comment on above: Performed By: #### I NFLUAB #### [facility] [address] [place] [address] Dr. Ashlie Hills MUCOUS NONE SEEN Normal NONE SEEN [facility] Comment on above: Performed By: #### I NFLUAB #### [facility] [address] [address] [address] Ashlie Hills Nitrite Ql (U) Negative Normal NEGATIVE [facility] Comment on above: Performed By: #### I NFLUAB #### [facility] [address] [place] [address] Dr. Ashlie Hills pH (U) 5.5 [pH] Normal 5-9 [facility] Comment on above: Performed By: #### I NFLUAB #### [facility] [address] [place] [address] Dr. Ashlie Hills RBC 0-2 Normal 0-2 [facility] Comment on above: Performed By: #### I NFLUAB #### [facility] [address] [place] [address] Dr. Ashlie Hills SPEC GRAVITY >=1.030 Abnormal 1.005-<=1.025 [facility] Comment on above: Performed By: #### I NFLUAB #### [facility] [address] [address] [address] Ashlie Hills UA PROTEIN 100 mg/dl Abnormal NEGATIVE/ TRACE [facility] Comment on above: Performed By: #### I NFLUAB #### [facility] [address] [place] [address] Dr. Ashlie Hills Urobilinogen Qn (U) 0.2 {Little'U}/dL Normal 0.2 - 1. 0 [facility] Comment on above: Performed By: #### I NFLUAB #### [facility] [address] [address] [address] Ashlie Hills WBC NONE SEEN Normal NONE SEEN [facility] Comment on above: Performed By: #### I NFLUAB #### [facility] [address] [place] [address] Dr. Ashlie Hills URIC ACID SERUMon 03-03-2022 Urate [Mass/Vol] 5.0 mg/dL Normal 2.6-6.0 [facility] Comment on above: Performed By: #### I NFLUAB #### [facility] [address] [place] [address] Dr. Ashlie Hills URINE T PROTEIN CREAT RATIOo n 03-03-2022 Protein (U) [Mass/Vol] 77.9 mg/dL Critically high <=12.0 [facility] Comment on above: Performed By: #### C VDAGS #### [facility] [address] [place] [address] Dr. Ashlie Hills UR PROT CREAT RAT 0.44 Normal [facility] Comment on above: Performed By: #### C VDAGS #### [facility] [address] [place] [address] Dr. Ashlie Hills URINE CREAT 175.15 mg/dL Normal 20.00-300.00 [facility] Comment on above: Performed By: #### C VDAGS #### [facility] [address] [place] [address] Dr. Ashlie Hills CULTURE URINEon 12-25-2021 CULTURE URINE Culture Observations: GREATER THAN TWO ORGANISMS PRESENT, HEAVILY MIXED. PLEASE RESUBMIT CLEAN CATCH MID-STREAM URINE IF CLINICALLY INDICATED. Normal [facility] Comment on above: Performed By: #### I NFLUAB #### [facility] [address] [place] [address] Dr. Ashlie Hills CBC AUTO DIFFon 12-24-2021 BASO # 0.1 103/ul Normal 0.0-0.1 [facility] Comment on above: Performed By: #### C BC #### [facility] [address] [place] [address] Dr. Ashlie Hills Basophils/100 WBC (Bld) 0.5 % Normal 0.2-2.0 [facility] Comment on above: Performed By: #### C BC #### [facility] [address] [place] [address] Dr. Ashlie Hills EO # 0.4 103/ul Normal 0.0-0.7 [facility] Comment on above: Performed By: #### C BC #### [facility] [address] [place] [address] Dr. Ashlie Hills Eosinophils/100 WBC (Bld) 2.4 % Normal 0.9-7.0 [facility] Comment on above: Performed By: #### C BC #### [facility] [address] [place] [address] Dr. Ashlie Hills Erythrocyte distribution width (RBC) [Ratio] 14.1 % Normal 11.0-15.0 [facility] Comment on above: Performed By: #### C BC #### [facility] [address] [place] [address] Dr. Ashlie Hills Hematocrit (Bld) [Volume fraction] 55.9 % Critically high 36.0-48.0 [facility] Comment on above: Performed By: #### C BC #### [facility] [address] [place] [address] Dr. Ashlie Hills Hemoglobin (Bld) [Mass/Vol] 17.9 g/dL Critically high 12.0-16.0 [facility] Comment on above: Performed By: #### C BC #### [facility] [address] [place] [address] Dr. Ashlie Hills IG # 0.06 10e3/ul Critically high 0.00-0.03 [facility] Comment on above: Performed By: #### C BC #### [facility] [address] [place] [address] Dr. Ashlie Hills IG % 0.4 % Normal 0.0-0.5 [facility] Comment on above: Performed By: #### C BC #### [facility] [address] [place] [address] Dr. Ashlie Hills LYMPH # 5.8 103/ul Critically high 1.2-3.8 [facility] Comment on above: Performed By: #### C BC #### [facility] [address] [place] [address] Dr. Ashlie Hills Lymphocytes/100 WBC (Bld) 35.4 % Normal 20.5-60.0 [facility] Comment on above: Performed By: #### C BC #### [facility] [address] [place] [address] Dr. Ashlie Hills MANUAL DIFF REQ NO Normal [facility] Comment on above: Performed By: #### C BC #### [facility] [address] [place] [address] Dr. Ashlie Hills MCH (RBC) [Entitic mass] 29.4 pg Normal 26.7-34.0 [facility] Comment on above: Performed By: #### C BC #### [facility] [address] [place] [address] Dr. Ashlie Hills MCHC (RBC) [Mass/Vol] 32.0 g/dL Normal 29.9-35.2 [facility] Comment on above: Performed By: #### C BC #### [facility] [address] [place] [address] Dr. Ashlie Hills MCV (RBC) [Entitic vol] 91.8 fL Normal 81.0-99.0 [facility] Comment on above: Performed By: #### C BC #### [facility] [address] [place] [address] Dr. Ashlie Hills MONO # 0.8 103/ul Normal 0.3-0.8 [facility] Comment on above: Performed By: #### C BC #### [facility] [address] [place] [address] Dr. Ashlie Hills Monocytes/100 WBC (Bld) 4.8 % Normal 1.7-12.0 [facility] Comment on above: Performed By: #### C BC #### [facility] [address] [place] [address] Dr. Ashlie Hills NEUT # 9.3 103/ul Critically high 1.4-6.5 [facility] Comment on above: Performed By: #### C BC #### [facility] [address] [place] [address] Dr. Ashlie Hills Neutrophils/100 WBC (Bld) 56.5 % Normal 43.0-75.0 [facility] Comment on above: Performed By: #### C BC #### [facility] [address] [place] [address] Dr. Ashlie Hills Platelet mean volume (Bld) [Entitic vol] 12.9 fL Normal 9.5-13.5 [facility] Comment on above: Performed By: #### C BC #### [facility] [address] [place] [address] Dr. Ashlie Hills PLT 127 103/ul Critically low 150-[address] [facility] Comment on above: Performed By: #### C BC #### [facility] [address] [place] [address] Dr. Ashlie Hills RBC 6.09 106/ul Critically high 4.20-5.40 [facility] Comment on above: Performed By: #### C BC #### [facility] [address] [place] [address] Dr. Ashlie Hills WBC 16.4 103/ul Critically high 4.0-11.0 [facility] Comment on above: Performed By: #### C BC #### [facility] [address] [place] [address] ABD/PELVIS WO CONon [...] right hip degenerative change. Normal [facility] ER URINE PROFILEon 2 Bilirubin Ql (U) Negative Normal NEGATIVE [facility] Comment on above: Performed By: #### Tracey LYMAN UMICRO #### [facility] [address] [place] [address] Dr. Ashlie Hills Clarity (U) CLEAR Normal CLEAR [facility] Comment on above: Performed By: #### Tracey LYMAN UMICRO #### [facility] [address] [place] [address] Dr. Ashlie Hills Color (U) DK. ORANGE Abnormal YELLOW [facility] Comment on above: Performed By: #### Tracey LYMAN UMICRO #### [facility] [address] [place] [address] Dr. Ashlie HOBBS A micrscopic examination will be performed if indicated. Normal [facility] Comment on above: Performed By: #### Tracey LYMAN UMICRO #### [facility] [address] [place] [address] Dr. Ashlie Hills Glucose Ql (U) 250 mg/dl Abnormal NEGATIVE The [facility] Comment on above: Performed By: #### Tracey LYMAN UMICRO #### [facility] [address] [place] [address] Dr. Ashlie Hills Hemoglobin Ql (U) Negative Normal NEGATIVE The [facility] Comment on above: Performed By: #### Tracey LYMAN UMICRO #### [facility] [address] [address] [address] Ashlie Hills Ketones Ql (U) Negative Normal NEGATIVE The [facility] Comment on above: Performed By: #### Tracey LYMAN UMICRO #### [facility] [address] [place] [address] Dr. Ashlie Hills LEUKOCYTES Negative Normal NEGATIVE [facility] Comment on above: Performed By: #### E RUR, UMICRO #### [facility] [address] [place] [address] Dr. Ashlie Hills Nitrite Ql (U) Negative Normal NEGATIVE [facility] Comment on above: Performed By: #### E NURA, UMICRO #### [facility] [address] [place] [address] Dr. Ashlie Hills pH (U) 5.0 [pH] Normal 5-9 [facility] Comment on above: Performed By: #### E NURA, UMICRO #### [facility] [address] [place] [address] Dr. Ashlie Hills Protein (U) [Mass/Vol] 100 mg/dL Abnormal NEGAT YURY/ TRACE [facility] Comment on above: Performed By: #### Tracey LYMAN, UMICRO #### [facility] [address] [place] [address] Dr. Ashlie Hills SPEC GRAVITY >=1.030 Abnormal 1.005-<=1.025 [facility] Comment on above: Performed By: #### Tracey LYMAN, UMICRO #### [facility] [address] [place] [address] Dr. Ashlie Hills UR MICRO IND INDICATED Normal [facility] Comment on above: Performed By: #### Tracey LYMAN, UMICRO #### [facility] [address] [place] [address] Dr. Ashlie Hills Urobilinogen Qn (U) 1.0 {Little'U}/dL Normal 0.2 - 1. 0 [facility] Comment on above: Performed By: #### Tracey LYMAN, UMICRO #### [facility] [address] [place] [address] Dr. Ashlie Hills PROF CHEM 8 (BAS METB)on Anion gap [Moles/Vol] 12.1 mmol/L Normal [facility] Comment on above: Performed By: #### I NFLUAB #### [facility] [address] [place] [address] Dr. Ashlie Hills Calcium [Mass/Vol] 9.0 mg/dL Normal 8.5-10.1 [facility] Comment on above: Performed By: #### I NFLUAB #### [facility] [address] [address] [address] Ashlie Hills Chloride [Moles/Vol] 101 mmol/L Normal 98-107 [facility] Comment on above: Performed By: #### I NFLUAB #### [facility] [address] [address] [address] Ashlie Hills CO2 [Moles/Vol] 29.1 mmol/L Normal 21.0-32.0 [facility] Comment on above: Performed By: #### I NFLUAB #### [facility] [address] [place] [address] Dr. Ashlie Hills Creatinine [Mass/Vol] 0.86 mg/dL Normal 0.55-1.02 [facility] Comment on above: Performed By: #### I NFLUAB #### [facility] [address] [address] [address] Ashlie Hills EGFR-AF GHANAIAN >60 Normal >=60 [facility] Comment on above: Performed By: #### I NFLUAB #### [facility] [address] [place] [address] Dr. Ashlie Hills EGFR-NON AF GHANAIAN >60 Normal >=60 [facility] Comment on above: Performed By: #### I NFLUAB #### [facility] [address] [address] [address] Ashlie Hills Glucose [Mass/Vol] 236 mg/dL Critically high 74-106 [facility] Comment on above: Performed By: #### I NFLUAB #### [facility] [address] [address] [address] Ashlie Hills Potassium [Moles/Vol] 4.2 mmol/L Normal 3.5-5.1 [facility] Comment on above: Performed By: #### I NFLUAB #### [facility] [address] [address] [address] Ashlie Hills Sodium [Moles/Vol] 138 mmol/L Normal 136-145 [facility] Comment on above: Performed By: #### I NFLUAB #### [facility] [address] [place] [address] Dr. Ashlie Hills Urea nitrogen [Mass/Vol] 11.0 mg/dL Normal 7.0-18.0 [facility] Comment on above: Performed By: #### I NFLUAB #### [facility] [address] [place] [address] Dr. Ashlie Hills Urea nitrogen/Creatinine [Mass ratio] 12.8 mg/mg Normal [facility] Comment on above: Performed By: #### I NFLUAB #### [facility] [address] [place] [address] Dr. Ashlie Hills URINE MICROSCOPIC ONLYon BACTERIA SMALL Abnormal NONE SEEN [facility] Comment on above: Performed By: #### E RUR, UMICRO #### [facility] [address] [place] [address] Dr. Ashlie Hills Bacteria identified Cx Nom (U) INDICATED Normal [facility] Comment on above: Performed By: #### E RUR, UMICRO #### [facility] [address] [place] [address] Dr. Ashlie Hills CAST NONE SEEN Normal NONE SEEN [facility] Comment on above: Performed By: #### E RUR, UMICRO #### [facility] [address] [place] [address] Dr. Ashlie Hills Crystals LM Nom (Urine sed) NONE SEEN Normal NONE SEEN [facility] Comment on above: Performed By: #### E RUR, UMICRO #### [facility] [address] [place] [address] Dr. Ashlie Hills Epithelial cells LM Ql (Urine sed) MODERATE Abnormal NONE SEEN /RARE [facility] Comment on above: Performed By: #### E RUR, UMICRO #### [facility] [address] [place] [address] Dr. Ashlie Hills MUCOUS NONE SEEN Normal NONE SEEN [facility] Comment on above: Performed By: #### E RUR, UMICRO #### [facility] [address] [address] [address] Ashlie Hills RBC 0-2 Normal 0-2 [facility] Comment on above: Performed By: #### E RUR UMICRO #### [facility] [address] [address] [address] Ashlie Hills WBC 0-2 Abnormal NONE SEEN [facility] Comment on above: Performed By: #### E RUR UMICRO #### [facility] [address] [address] [address] Ashlie Hills YEAST PRESENT Abnormal NONE SEEN [facility] Comment on above: Performed By: #### E NURA UMICRO #### [facility] [address] [address] [address] Ashlie Hills HIP RIGHT 1 OR 2 VWS WITH PE LVISon 07-20-2020 HIP RIGHT 1 OR 2 VWS WITH PELVIS [facility] Department of Radiology [address] [place] [id number] Patient Name: MITZI MACIAS : 1970 Sex: F Age: Race: White Pt. Location: Patient Status: O Ordered Date: 07/20/2020 1:45:00 PM Completed Date: 07/20/2020 01:57 PM Requesting Provider: LIZ EISENBREG Attending Provider: LIZ EISENBERG Report Copy To: MCKAYLA BLAS Signs & Symptoms: M25.551 Pain in right hip I10 History: [place] Comments: evaluate Exam: HIP RIGHT 1 OR [...] MRI. Electronically signed: Pipo Acevedo. Transcribed by: [id number], User Resident: Electronically Signed by: PIPO ACEVEDO @ 07/20/2020 03:45 PM Normal The [facility] Comment on above: Order Comment: evalu ate Vital Signs Date Time Vital Sign Value Performing Clinician Facility 01-29-2025 09:48-0400 Body height 170.2 cm Rain Souza MD Work Phone: [facility] 01-29-2025 09:48-0400 Body mass index (BMI) [Ratio] 56.38 kg/m2 Rain Souza MD Work Phone: [facility] 01-29-2025 09:48-0400 Body weight 163.29 kg Rain Souza MD Work Phone: [facility] 01-29-2025 09:48-0400 Diastolic blood pressure 70 mm[Hg] Rain Souza MD Work Phone: [facility] 01-29-2025 09:48-0400 Heart rate 72 /min Rain Souza MD Work Phone: [facility] 01-29-2025 09:48-0400 Respiratory rate 16 /min Rain Souza MD Work Phone: [facility] 01-29-2025 09:48-0400 SaO2% (BldA) [Mass fraction] 84 % Rain Souza MD Work Phone: [facility] 01-29-2025 09:48-0400 Systolic blood pressure 130 mm[Hg] Rain Souza MD Work Phone: [facility] 01-26-2025 18:11-0400 Body mass index (BMI) [Ratio] 58.64 kg/m2 Mckayla Aichholz RECEIVING DOCK CHECKER Work Phone: [facility] 01-26-2025 18:11-0400 Body temperature 98.49 [degF] Mckayla Aichholz RECEIVING DOCK CHECKER Work Phone: [facility] 01-26-2025 18:11-0400 Body weight 169.83 kg Mckayla Aichholz RECEIVING DOCK CHECKER Work Phone: [facility] 01-26-2025 18:11-0400 Diastolic blood pressure 82 mm[Hg] Mckayla Aichholz RECEIVING DOCK CHECKER Work Phone: [facility] 01-26-2025 18:11-0400 Heart rate 81 /min Mckayla Aichholz RECEIVING DOCK CHECKER Work Phone: [facility] 01-26-2025 18:11-0400 Respiratory rate 20 /min Mckayla Aichholz RECEIVING DOCK CHECKER Work Phone: [facility] 01-26-2025 18:11-0400 SaO2% (BldA) [Mass fraction] 90 % Mckayla Aichholz RECEIVING DOCK CHECKER Work Phone: [facility] 01-26-2025 18:11-0400 Systolic blood pressure 126 mm[Hg] Mckayla Aichholz RECEIVING DOCK CHECKER Work Phone: [facility] 12-09-2024 10:19-0400 Body temperature 98.01 [degF] Mckayla Aichholz RECEIVING DOCK CHECKER Work Phone: [facility] 12-09-2024 10:19-0400 Diastolic blood pressure 76 mm[Hg] Mckayla Aichholz RECEIVING DOCK CHECKER Work Phone: [facility] 12-09-2024 10:19-0400 Heart rate 71 /min Mckayla Aichholz RECEIVING DOCK CHECKER Work Phone: [facility] 12-09-2024 10:19-0400 Respiratory rate 20 /min Mckayla Aichholz RECEIVING DOCK CHECKER Work Phone: [facility] 12-09-2024 10:19-0400 SaO2% (BldA) [Mass fraction] 88 % Mckaylajuvenal Rosenbergz RECEIVING DOCK CHECKER Work Phone: [facility] 12-09-2024 10:19-0400 Systolic blood pressure 150 mm[Hg] Mckayla Juanjosehholz RECEIVING DOCK CHECKER Work Phone: [facility] 10-27-2024 14:11-0400 Body height 170.2 cm Mckayla Juanjosehholz RECEIVING DOCK CHECKER Work Phone: [facility] 10-27-2024 14:11-0400 Body mass index (BMI) [Ratio] 56.51 kg/m2 Mckayla Juanjosehholz RECEIVING DOCK CHECKER Work Phone: [facility] 10-27-2024 14:11-0400 Body temperature 98.71 [degF] Mckayla Juanjosehholz RECEIVING DOCK CHECKER Work Phone: [facility] 10-27-2024 14:11-0400 Body weight 163.66 kg Cmkayla Juanjosehholz RECEIVING DOCK CHECKER Work Phone: [facility] 10-27-2024 14:11-0400 Diastolic blood pressure 74 mm[Hg] Mckayla Juanjosehholz RECEIVING DOCK CHECKER Work Phone: [facility] 10-27-2024 14:11-0400 Heart rate 75 /min Mckayla Aichholz RECEIVING DOCK CHECKER Work Phone: [facility] 10-27-2024 14:11-0400 Respiratory rate 18 /min Mckayla Juanjosehholz RECEIVING DOCK CHECKER Work Phone: [facility] 10-27-2024 14:11-0400 SaO2% (BldA) [Mass fraction] 90 % Mckayla Juanjosehholz RECEIVING DOCK CHECKER Work Phone: [facility] 10-27-2024 14:11-0400 Systolic blood pressure 132 mm[Hg] Mckayla Aichholz RECEIVING DOCK CHECKER Work Phone: [facility] 10-08-2024 11:21-0400 Body height 170.2 cm Rain Souza MD Work Phone: [facility] 10-08-2024 11:21-0400 Body mass index (BMI) [Ratio] 55.91 kg/m2 Rain Souza MD Work Phone: [facility] 10-08-2024 11:21-0400 Body weight 161.93 kg Rain Souza MD Work Phone: [facility] 10-08-2024 11:21-0400 Diastolic blood pressure 70 mm[Hg] Rain Souza MD Work Phone: [facility] 10-08-2024 11:21-0400 Heart rate 70 /min Rain Souza MD Work Phone: [facility] 10-08-2024 11:21-0400 Respiratory rate 16 /min Rain Souza MD Work Phone: [facility] 10-08-2024 11:21-0400 SaO2% (BldA) [Mass fraction] 91 % Rain Souza MD Work Phone: [facility] 10-08-2024 11:21-0400 Systolic blood pressure 130 mm[Hg] Rain Souza MD Work Phone: [facility] 08-27-2024 17:44-0500 Body mass index (BMI) [Ratio] 57.31 kg/m2 Mckayla Blas RECEIVING DOCK CHECKER Work Phone: [facility] 08-27-2024 17:44-0500 Body temperature 98.01 [degF] Mckayla Blas RECEIVING DOCK CHECKER Work Phone: [facility] 08-27-2024 17:44-0500 Body weight 165.97 kg Mckayla Blas RECEIVING DOCK CHECKER Work Phone: [facility] 08-27-2024 17:44-0500 Diastolic blood pressure 76 mm[Hg] Mckayla Blas RECEIVING DOCK CHECKER Work Phone: [facility] 08-27-2024 17:44-0500 Heart rate 83 /min Mckayla Blas RECEIVING DOCK CHECKER Work Phone: [facility] 08-27-2024 17:44-0500 Respiratory rate 18 /min Mckayla Patriciamariyatalia RECEIVING DOCK CHECKER Work Phone: [facility] 08-27-2024 17:44-0500 SaO2% (BldA) [Mass fraction] 91 % Mckayla Patriciajodie RECEIVING DOCK CHECKER Work Phone: [facility] 08-27-2024 17:44-0500 Systolic blood pressure 134 mm[Hg] Mckayla Patriciajodie RECEIVING DOCK CHECKER Work Phone: [facility] 06-11-2024 10:00-0500 Blood Pressure Location Elbert ARAUZ [facility] 06-11-2024 10:00-0500 Diastolic blood pressure 68 mm[Hg] Elbert ARAUZ [facility] 06-11-2024 10:00-0500 Heart rate 76 /min Elbert ARAUZ [facility] 06-11-2024 10:00-0500 Systolic blood pressure 132 mm[Hg] Elbert ARAUZ [facility] 05-27-2024 10:20-0500 Body height 170.2 cm Rain Souza MD Work Phone: [facility] 05-27-2024 10:20-0500 Body mass index (BMI) [Ratio] 56.7 kg/m2 Rain Souza MD Work Phone: [facility] 05-27-2024 10:20-0500 Body weight 164.2 kg Rain Souza MD Work Phone: [facility] 05-27-2024 10:20-0500 Diastolic blood pressure 66 mm[Hg] Rain Souza MD Work Phone: [facility] 05-27-2024 10:20-0500 Heart rate 72 /min Rain Souza MD Work Phone: [facility] 05-27-2024 10:20-0500 Respiratory rate 16 /min Rain Souza MD Work Phone: [facility] 05-27-2024 10:20-0500 Systolic blood pressure 128 mm[Hg] Rain Souza MD Work Phone: [facility] 04-14-2024 10:27-0400 Body height 165.1 cm Mckayla Aichholz RECEIVING DOCK CHECKER Work Phone: [facility] 04-14-2024 10:27-0400 Body mass index (BMI) [Ratio] 61.01 kg/m2 Mckayla Aichholz RECEIVING DOCK CHECKER Work Phone: [facility] 04-14-2024 10:27-0400 Body temperature 98.49 [degF] Mckayla Aichholz RECEIVING DOCK CHECKER Work Phone: [facility] 04-14-2024 10:27-0400 Body weight 166.29 kg Mckayla Aichholz RECEIVING DOCK CHECKER Work Phone: [facility] 04-14-2024 10:27-0400 Diastolic blood pressure 80 mm[Hg] Mckayla Aichholz RECEIVING DOCK CHECKER Work Phone: [facility] 04-14-2024 10:27-0400 Heart rate 77 /min Mckayla Aichholz RECEIVING DOCK CHECKER Work Phone: [facility] 04-14-2024 10:27-0400 Respiratory rate 19 /min Mckayla Aichholz RECEIVING DOCK CHECKER Work Phone: [facility] 04-14-2024 10:27-0400 SaO2% (BldA) [Mass fraction] 92 % Mckayla Aichholz RECEIVING DOCK CHECKER Work Phone: [facility] 04-14-2024 10:27-0400 Systolic blood pressure 116 mm[Hg] Mckayla Aichholz RECEIVING DOCK CHECKER Work Phone: [facility] 03-08-2022 15:00-0400 Body height 170.18 cm Stephanie Tico Other [employer] Other 03-08-2022 15:00-0400 Body temperature 97.6 [degF] Stephanie Tico Other [employer] Other 03-08-2022 15:00-0400 Diastolic blood pressure 72 mm[Hg] Stephanie Tico Other [employer] Other 03-08-2022 15:00-0400 Respiratory rate 20 /min Stephanie Tico Other [employer] Other 03-08-2022 15:00-0400 SaO2% (BldA) [Mass fraction] 91 % Stephanie Tico Other [employer] Other 03-08-2022 15:00-0400 Systolic blood pressure 131 mm[Hg] Stephanie Tico Other [employer] Other 02-20-2022 09:20-0400 Body height 170.18 cm Stephanie Tico Other [employer] Other 02-20-2022 09:20-0400 Body temperature 96.5 [degF] Stephanie Tico Other [employer] Other 02-20-2022 09:20-0400 Diastolic blood pressure 69 mm[Hg] Stephanie Tico Other [employer] Other 02-20-2022 09:20-0400 Respiratory rate 20 /min Stephanie Tico Other [employer] Other 02-20-2022 09:20-0400 SaO2% (BldA) [Mass fraction] 91 % Stephanie Tico Other [employer] Other 02-20-2022 09:20-0400 Systolic blood pressure 129 mm[Hg] Stephanie Tico Other [employer] Other 02-06-2022 10:24-0400 Blood Pressure Location Elbert NeXeption [facility] [employer] 02-06-2022 10:24-0400 Diastolic blood pressure 76 mm[Hg] Elbert ARAUZ [facility] 02-06-2022 10:24-0400 Heart rate 70 /min [facility] 02-06-2022 10:24-0400 Respiratory rate 16 /min [facility] 02-06-2022 10:24-0400 Systolic blood pressure 134 mm[Hg] Elbert ARAUZ [facility] Encounters Encounter Date Encounter Type Care Provider Facility Start: 04-17-2025 ambulatory Omero Nas Negrita use BROADCAST SUPERVISOR-MECHANICAL ENGINEERING TECHNICIAN Facility:[facility] Start: 03-24-2025 ambulatory Corinne Kellogg MD Facility:[facility] Start: 03-23-2025 End: 03-23-2025 ambulatory Omero Nas Bob BROADCAST SUPERVISOR-MECHANICAL ENGINEERING TECHNICIAN Facility:[facility] Start: 03-11-2025 End: 03-11-2025 ambulatory Flynn Urias DPM Facility[facility] Start: 03-09-2025 End: 03-09-2025 Refill Mckayla Blas NP Work Phone: [facility] Comment on above: Tobacco user; Encounter for smoking cessation counseling Start: 01-29-2025 End: 01-29-2025 Bamboo flowsheet Rain Souza MD Work Phone: [facility] Start: 01-29-2025 End: 01-29-2025 Bamboo flowsheet Rain Souza MD Work Phone: [facility] Start: 01-29-2025 End: 01-29-2025 Clinisync Result Encounter Generic External Data Provider [facility] External Department Unsolicited Start: 01-29-2025 End: 01-29-2025 ambulatory RAIN SOUZA Not Available Start: 01-29-2025 End: 01-29-2025 Office outpatient visit 25 minutes Rain Souza MD Work Phone: [facility] Comment on above: Encounter for dietar y consultation (Primary Dx); Type 2 diabetes mellitus with hyperglycemia, with long-term current use of insulin ([facility]); Vitamin D deficiency; Primary hypertension ; Insulin long-term use ([facility]); Hyperlipemia, mixed ; Microalbuminuria; Class 3 severe obesity due to excess calories with serious comorbidity and body mass index (BMI) of 50.0 to 59.9 in adult ([facility]) Start: 01-26-2025 End: 01-26-2025 ambulatory MCKAYLA BLAS Not Available Start: 01-26-2025 End: 01-26-2025 Patient encounter procedure Mckayla Blas NP Work Phone: [facility] Comment on above: Encounter for subseq [...] (CMS-HCC) Start: 01-06-2025 End: 01-06-2025 ambulatory [facility] Start: 12-18-2024 End: 12-19-2024 Refill Mckayla Blas RECEIVING DOCK CHECKER Work Phone: [facility] Comment on above: Hyperlipidemia, unsp ecified ; Tobacco user; Encounter for smoking cessation counseling Start: 12-09-2024 End: 12-09-2024 Bamboo flowsheet Mckayla Blas RECEIVING DOCK CHECKER Work Phone: [facility] Start: 12-09-2024 End: 12-09-2024 Bamboo flowsheet Mckayla Blas RECEIVING DOCK CHECKER Work Phone: [facility] Start: 12-09-2024 End: 12-09-2024 ambulatory MCKAYLA BLAS Not Available Start: 12-09-2024 End: 12-09-2024 Office outpatient visit 25 minutes Mckayla Blas RECEIVING DOCK CHECKER Work Phone: [facility] Comment on above: Cellulitis of left [...] minutes Mckayla Blas NP Work Phone: [facility] Comment on above: Primary hypertension ([facility]HCC) (Primary Dx); Diabetic polyneuropathy associated with type 2 diabetes mellitus ([facility]); Chronic diastolic heart failure ([facility]); Bilateral lower extremity edema; Morbid (severe) obesity due to excess calories ([facility]); Type 2 diabetes mellitus with complication, with long-term current use of insulin ([facility]); Anxiety and depression ([facility]); Cigarette nicotine dependence without complication; Encounter for screening mammogram for malignant neoplasm of breast; Insomnia; Non-seasonal allergic rhinitis, unspecified trigger; Type 2 diabetes mellitus with unspecified complications; Vitamin D deficiency, unspecified; Gastro-esophageal reflux disease without esophagitis; PAD (peripheral artery disease) ([facility]); Gastroesophageal reflux disease, unspecified whether esophagitis present; Venous ulcer of right leg ([facility]) Start: 10-21-2024 End: 10-21-2024 Refill [facility]ckayla Blas NP [facility] [facility] Comment on above: Chronic obstructive pulmonary disease, unspecified Start: 10-08-2024 End: 10-08-2024 Clinisync Result Encounter Mckayla Blas NP Work Phone: [facility] External Department Unsolicited Start: 10-08-2024 End: 10-08-2024 Clinisync Result Encounter Mckayla Blas RECEIVING DOCK CHECKER Work Phone: [facility] External Department Unsolicited Start: 10-08-2024 End: 10-08-2024 Office outpatient visit 25 minutes Rain Souza MD Work Phone: [facility] Comment on above: Type 2 diabetes asiya itus with hyperglycemia, with long-term current use of insulin ([facility]) (Primary Dx); Encounter for dietary consultation; Vitamin D deficiency; Primary hypertension ([facility]); Insulin long-term use (CMS/HCC); Hyperlipemia, mixed (CMS/HCC); [...] Department Unsolicited Start: 08-08-2024 End: 08-08-2024 ambulatory [facility] Start: 07-17-2024 End: 07-17-2024 Refill Mckayla Blas RECEIVING DOCK CHECKER Work Phone: [facility] Start: 07-14-2024 End: 07-14-2024 Office outpatient visit 25 minutes Mckayla Blas RECEIVING DOCK CHECKER Work Phone: [facility] Comment on above: Primary [...] complication, with long-term current use of insulin ([facility]); Tobacco user; Encounter for smoking cessation counseling; Kidney stone; Adrenal mass 1 cm to 4 cm in diameter ([facility]); Radiculopathy, lumbar region; Non-seasonal allergic rhinitis, unspecified trigger; Type 2 diabetes mellitus with unspecified complications ([facility]/HCC) Start: 07-14-2024 End: 07-14-2024 ambulatory MCKAYLA BLAS Not Available Start: 07-05-2024 End: 07-07-2024 Refill Mckayla Blas RECEIVING DOCK CHECKER Work Phone: [facility] Comment on above: Bilateral lower extr emity edema Start: 06-11-2024 ambulatory Elbert Maysi ty:SHEA Mckee Start: 06-11-2024 End: 06-11-2024 Patient encounter procedure Elbert ARAUZ [facility] Start: 05-27-2024 End: 05-27-2024 Bamboo flowsheet Rain Souza MD Work Phone: [facility] Start: 05-27-2024 End: 05-27-2024 Bamboo flowsheet Rain Souza MD Work Phone: [facility] Start: 05-27-2024 End: 05-27-2024 ambulatory AHMAD [...] 04-14-2024 End: 04-14-2024 Bamboo flowsheet Mckayla Blas RECEIVING DOCK CHECKER Work Phone: [facility] Start: 04-14-2024 End: 04-14-2024 Bamboo flowsheet Mckayla Blas RECEIVING DOCK CHECKER Work Phone: [facility] Start: 04-14-2024 End: 04-14-2024 Office outpatient visit 25 minutes Mckayla Blas NP Work Phone: [facility] Comment on above: Primary hypertension (CMS/HCC) (Primary Dx); Insomnia; Type 2 diabetes mellitus with complication, with long-term current use of insulin ([facility]); Non-seasonal allergic rhinitis, unspecified trigger; Type 2 [...] Start: 04-05-2024 End: 04-06-2024 Refill Mckayla Aichholz RECEIVING DOCK CHECKER Work Phone: [facility] Comment on above: Hyperlipidemia, unsp ecified (CMS/HCC); Bilateral lower extremity edema Vitamin D deficiency , unspecified Start: 01-17-2024 Patient encounter procedure Rain Souza MD Work Phone: [facility] Start: 08-17-2023 Refill Mckayla Aichholz RECEIVING DOCK CHECKER Work Phone: [facility] Comment on above: Vaginal yeast infect ion (Primary Dx) Start: 08-14-2023 Refill Mckayla Aichholz RECEIVING DOCK CHECKER Work Phone: [facility] Comment on above: Type 2 diabetes asiya itus with unspecified complications (CMS/HCC); Edema, unspecified; Edema Start: 12-05-2022 ambulatory MATEUSZ NICHOLEMIPATHY . Facility:H1 Start: 12-05-2022 End: 12-06-2022 Evaluation and management of inpatient UMBERTO ALONDRA . Facility:[facility]1 Start: 11-23-2022 End: 11-23-2022 ambulatory MECHANICAL ENGINEERING TECHNICIAN MCKAYLA JUANJOSECayetanoJODIE Facility:H1 Start: 11-22-2022 End: 11-23-2022 ambulatory MECHANICAL ENGINEERING TECHNICIAN MCKAYLA AICCayetanoJODIE Facility:H1 Start: 11-17-2022 End: 11-18-2022 ambulatory SUBHASH GASPAR . Facility:H1 Start: 11-15-2022 End: 11-15-2022 Patient encounter procedure SARAH VEGA [facility] Start: 10-05-2022 End: 10-05-2022 ambulatory MARIANO DIAB . Facility:H1 Start: 09-21-2022 End: 09-21-2022 ambulatory MECHANICAL ENGINEERING TECHNICIAN MCKAYLA AICCayetanoMARIYAZ Facility:H1 Start: 09-14-2022 ambulatory RAFAEL Ribera y:H1 Start: 08-24-2022 End: [address] CHAPARRO MORTENSEN . Facility:H1 Start: 08-21-2022 End: 08-22-2022 ambulatory HATTIE Ramsey [facility] Facility:H1 Start: 07-27-2022 End: 07-28-2022 ambulatory CECILIA NIRMALATray . Facility:H1 Start: 07-18-2022 End: 07-19-2022 ambulatory CECILIA BJORNRUCHI . Facility:H1 Start: 07-18-2022 End: 07-19-2022 ambulatory HATTIE Ramsey [facility] Facility:H1 Start: 07-06-2022 End: 07-06-2022 ambulatory SAYDA BLAS Facility:H1 Start: 05-11-2022 End: 05-12-2022 ambulatory GIL VALENZUELA . Facility:H1 Start: 04-25-2022 End: 04-25-[address] CHAPARRO MORTENSEN . Facility:H1 Start: 04-20-2022 End: 04-21-2022 ambulatory GIL VALENZUELA . Facility:H1 Start: 03-08-2022 End: 03-08-2022 ambulatory Stephanie Tico Other [facility] [facility] Other Start: 03-08-2022 Office outpatient vi sit 15 minutes Stephanie Tico [facility] Start: 03-03-2022 End: 03-04-2022 ambulatory SAYDA BLAS Facility:H1 Start: 02-20-2022 End: 02-20-2022 ambulatory Stephanie Tico Other [employer] [facility] Other Start: 02-20-2022 Office outpatient ne w 45 minutes Stephanie Tico [facility] Start: 02-06-2022 End: 02-06-2022 Patient encounter procedure Elbert ARAUZ [facility] Start: 01-19-2022 End: 01-20-2022 ambulatory GIL VALENZUELA . Facility:H1 Start: 12-24-2021 End: 12-24-2021 ambulatory OLE RAMIREZ Facility: Start: 08-26-2020 End: 09-10-2020 Patient encounter procedure MARY TAVERAS Facility:[facility] Start: 10-30-2019 End: 10-30-2019 Emergency department patient visit JAMES BENAVIDEZ [facility] Start: 10-30-2019 End: 10-30-2019 Emergency department patient visit James Benavidez [facility] Emergency Department Start: 11-02-2016 Preoperative state Stephanie Tico Other [employer] Other Procedures Date Procedure Procedure Detail Performing [...] UA (CLEAN/CATCH) MICROSCOPIC IF INDICATE Mckayla Blas RECEIVING DOCK CHECKER Work Phone: Start: 08-27-2024 ALL CBC WITH AUTO DIFF Generic External Data Provider Start: 05-27-2024 Gluc bld gluc mntr d ev cleared fda spec home use Rain Souza MD Work Phone: Start: 05-12-2024 [facility] Generic External Data Provider Start: 12-14-2023 Mammography Rain urena MD Work Phone: Start: 11-22-2022 Mammography Mckayla clifford RECEIVING DOCK CHECKER Work Phone: Start: 10-08-2015 Microscopic observat ion [...] Wellness (AWV) [facility] Start: 10-08-2025 Urine screening for protein Diabetes: Urine Protein Screening [facility] Start: 08-03-2025 Screening for malignant neoplasm of colon [facility] Start: 07-14-2025 Glaucoma screening Diabetes: R etinopathy Screening [facility] Start: 05-28-2025 End: 05-28-2025 Patient encounter procedure [facility] Start: 05-13-2025 Glaucoma screening Diabetes: R etinopathy Screening [facility] Start: 05-01-2025 Hemoglobin A1c measurement Diabetes: Hemoglobin A1C [facility] Start: 04-29-2025 End: 04-29-2025 Patient encounter procedure [facility] Start: 03-09-2025 Influenza vaccination N [facility] Start: 01-28-2025 End: 01-28-2025 Patient encounter procedure 01/28/2025 10:50 AM EDT Office Visit [facility] [address] [place] [address] Rain Souza MD [address] [place] [address] [facility] Start: 01-26-2025 End: 01-26-2025 Patient encounter procedure 01/26/2025 6:00 PM EDT Office Visit [facility] [address] [place] [phone] Mckayla Blas NP [address] [place] [phone] [facility] Start: 01-16-2025 Medicare Annual Wellness (AWV) Medicare Annual Wellness (AWV) [facility] Start: 01-07-2025 Hemoglobin A1c measurement Diabetes: Hemoglobin A1C [facility] Start: 12-15-2024 End: 12-27-2025 MG Breast - bilateral Screening Bilateral screening mammogram Imaging Routine Encounter for screening mammogram for malignant neoplasm of breast Expected: 12/15/2024 (Approximate), Expires: 12/27/2025 [facility] Work Phone: Comment on above: Expected: 12/15/2024 (Approximate), Expires: 12/27/2025 Start: 12-13-2024 Screening for malignant neoplasm of breast Mammogram [facility] Start: 11-11-2024 Urine screening for protein Diabetes: Urine Protein Screening [facility] Start: 10-27-2024 End: 10-27-2024 Patient encounter procedure 10/27/2024 2:00 PM EDT Office Visit [facility] [address] [place] [address] Mckayla Blas NP [address] [place] [phone] [facility] Start: 10-08-2024 End: 10-08-2024 Patient encounter procedure 10/08/2024 11:20 AM EDT Office Visit [facility] [address] [place] [address] Rain Souza MD [address] [place] [address] [facility] Start: 08-27-2024 End: 08-27-2024 Patient encounter procedure 08/27/2024 5:30 PM EST Office Visit [facility] [address] [place] [phone] Mckayla Blas NP [address] [place] [phone] [facility] Start: 08-27-2024 End: 08-27-2025 25-hydroxyvitamin D3 [Mass/volume] in Serum or Plasma Vitamin D 25 hydroxy Lab Routine Vitamin deficiency Expected: 08/27/2024 (Approximate), Expires: 08/27/2025 [facility] Comment on above: Expected: 08/27/2024 (Approximate), Expires: 08/27/2025 Start: 08-27-2024 Hemoglobin A1c measurement Diabetes: Hemoglobin A1C [facility] Start: 08-27-2024 End: 08-27-2025 Hepatic function 2000 panel - Serum or Plasma Hepatic function panel Lab Routine Hyperlipidemia, unspecified (CMS/HCC) Expected: 08/27/2024 (Approximate), Expires: 08/27/2025 [facility] Comment on above: Expected: 08/27/2024 (Approximate), Expires: 08/27/2025 Start: 08-27-2024 End: 08-27-2025 Lipid 1996 panel - Serum or Plasma Lipid panel Lab Routine Mixed hyperlipidemia (CMS/HCC) Expected: 08/27/2024 (Approximate), Expires: 08/27/2025 [facility] Work Phone: Comment on above: Expected: 08/27/2024 (Approximate), Expires: 08/27/2025 Start: 08-27-2024 End: 08-27-2025 Microalbumin/Creatini ne panel in random Urine Microalbumin / creatinine, urine ratio Lab Routine Primary hypertension (CMS/HCC) Type 2 diabetes mellitus with complication, with long-term current use of insulin ([facility]) Expected: 08/27/2024 (Approximate), Expires: 08/27/2025 [facility] Comment on above: Expected: 08/27/2024 (Approximate), Expires: 08/27/2025 Start: 08-27-2024 End: 08-27-2025 Urate [Mass/volume] in Serum or Plasma Uric acid Lab Routine Gout, unspecified cause, unspecified chronicity, unspecified site Expected: 08/27/2024 (Approximate), Expires: 08/27/2025 [facility] Comment on above: Expected: 08/27/2024 (Approximate), Expires: 08/27/2025 Start: 08-27-2024 End: 08-27-2025 Urinalysis complete panel - Urine Urinalysis with reflex microscopic (clean catch) Lab Routine Primary hypertension ([facility]) Type 2 diabetes mellitus with complication, with long-term current use of insulin ([facility]) Tobacco user Gout, unspecified cause, unspecified chronicity, unspecified site Expected: 08/27/2024 (Approximate), Expires: 08/27/2025 [facility] Comment on above: Expected: 08/27/2024 (Approximate), Expires: 08/27/2025 Start: 08-26-2024 End: 08-26-2024 Patient encounter procedure 08/26/2024 10:30 AM EST Office Visit [facility] [address] [place] [address] Rain Souza MD [address], [address] [place] [address] [facility] Start: 07-14-2024 End: 07-14-2024 Patient encounter procedure 07/14/2024 6:30 PM EST Office Visit [facility] [address] [place] [address] Mckayla Blas NP [address] [place] [address] [facility] Start: 07-14-2024 End: 07-14-2024 Patient encounter procedure 07/14/2024 10:10 AM EST Office Visit [facility] [address] [place] [address] Rain Souza MD [address] [place] [address] [facility] Start: 06-06-2024 Influenza vaccination Influenza Vacc ine (#1) [facility] Comment on above: Postponed from 03/09 (Patient Refused) Start: 05-27-2024 End: 05-27-2024 Patient encounter procedure 05/27/2024 9:50 AM EST Office Visit [facility] [address] [place] [address] Rain Souza MD [address] [place] [address] [facility] Start: 05-17-2024 Hemoglobin A1c measurement Diabetes: Hemoglobin A1C [facility] Start: 05-15-2024 End: 05-15-2024 Chart abstracting 05/15/2024 Abstract [facility] [address] [place] [address] Rain Souza MD [address] [place] [address] [facility] Start: 05-15-2024 End: 05-15-2024 Patient encounter procedure 05/15/2024 11:20 AM EST Office Visit [facility] [address] [place] [address] Rain Souza MD [address] [place] [address] [facility] Start: 04-17-2024 End: 04-17-2024 Patient encounter procedure 04/17/2024 3:40 PM EDT Office Visit [facility] [address] [place] [address] Mckayla Blas NP [address] [place] [address] [facility] Start: 04-14-2024 End: 04-14-2024 Patient encounter procedure 04/14/2024 11:00 AM EDT Office Visit [facility] [address] [place] [phone] Mckayla Blas, RECEIVING DOCK CHECKER [address] [place] [phone] Arrived [facility] Comment on above: Arrived Start: 03-09-2024 Influenza vaccination Influenza Vacc ine (#1) [facility] Start: 02-19-2024 Hemoglobin A1c measurement Diabetes: Hemoglobin A1C [facility] Start: 11-24-2023 Urine screening for protein Diabetes: Urine Protein Screening [facility] Start: 11-23-2023 Screening for malignant neoplasm of breast Mammogram [facility] Start: 10-15-2023 End: 10-15-2023 Patient encounter procedure 10/15/2023 4:30 PM EDT Office Visit [facility] [address] [place] [phone] Mckayla Blas NP [address] [place] [address] [facility] Start: 08-09-2023 Hemoglobin A1c measurement Diabetes: Hemoglobin A1C [facility] Start: 05-27-2021 Glaucoma screening Diabetes: R etinopathy Screening [facility] Start: 03-09-2020 Influenza vaccination Flu vacc ine (Season Ended) [place], [place] Start: 10-07-2018 Screening for malignant neoplasm of cervix [facility] Start: 2010 Lipid panel Lipid screen [place], [place] Start: 2000 Screening for malignant neoplasm of cervix HPV/Cotest [facility] Start: 1991 Screening for malignant neoplasm of cervix Cervical cancer screen [place], [place] Start: 1989 DTaP/Tdap/Td vaccine (1 - Tdap) DTaP/Tdap/Td vaccine (1 - Tdap) [place], [place] Start: 1985 HIV screening HIV screen [place], [place] Start: 1970 Medicare Annual Wellness (AWV) Medicare Annual Wellness (AWV) [facility] Start: 1970 Screening for malignant neoplasm of colon [facility] BLOOD CULTURE 1 BLOOD CULTURE 1 Lab Routine 12/04/2024 4:44 PM EDT [facility] BLOOD CULTURE 2 BLOOD CULTURE 2 Lab Routine 12/04/2024 5:28 PM EDT [facility] Immunizations Immunization Date Immunization Notes Care Provider Judie lucas 05-18-2023 influenza, injectabl e, quadrivalent, contains preservative Mckayla Blas NP Work Phone: [facility] 05-18-2023 influenza virus vacc ine, unspecified formulation Rain Souza MD Work Phone: [facility] 07-19-2021 SARS-CoV-2 (COVID-19 ) mRNA BNT-162b2 vax [employer] [facility] 10-28-2020 SARS-CoV-2 (COVID-19 ) mRNA BNT-162b2 vax [employer] [facility] 10-08-2020 SARS-CoV-2 (COVID-19 ) mRNA BNT-162b2 vax [employer] [facility] 04-16-2017 influenza virus vacc ine, H5N1, A/ (national stockpile) Mckayla Blas RECEIVING DOCK CHECKER Work Phone: [facility] 04-16-2017 influenza virus vacc ine, unspecified formulation Rain Souza MD Work Phone: [facility] 04-16-2017 influenza, unspecifi ed formulation Elbert REGLA [facility] 04-16-2017 pneumococcal polysaccharide vaccine, 23 valent Rain Souza MD Work Phone: [facility] 05-10-2016 influenza virus vacc ine, H5N1, A/ (national stockpile) Mckayla Blas NP Work Phone: [facility] 05-10-2016 influenza virus vacc ine, unspecified formulation Rain Souza MD Work Phone: [facility] 05-10-2016 influenza, unspecifi ed formulation Elbert ARAUZ [facility] 05-02-2013 influenza virus vacc ine, whole virus Rain Souza MD Work Phone: [facility] 05-02-2013 influenza, injectabl e, quadrivalent, contains preservative Mckayla Wan RECEIVING DOCK CHECKER Work Phone: [facility] 05-02-2013 influenza, whole Elbert BARBARA ERS [facility] 01-29-1998 measles, mumps and rubella virus vaccine Rain Souza MD Work Phone: [facility] Payers Date Payer Category Payer Unknown [id number] 2023 Medicare (Managed Care) 1.2. [id number] 2023 Private Health Insurance [id number] 2023 Medicare [id number] 2018 Medicaid MEDICAID [facility] [id number] 2018-Present [phone] [address] [place] [address] Medicaid [id number] 2013 Medicare [id number]. [id number] .[id number] 1970 Unknown [id number] 2.16.840.1.356412.3.579.2.6 47 1970 Unknown [id number] 2.16.840.1.515182.3.579.2.5 93 1970 Unknown [id number] 2.16.840.1.396759.3.579.2.5 93 1970 Unknown [id number] 2.16.840.1.689817.3.579.2.5 93 1970 Unknown [id number] 2.16.840.1.720325.3.579.2.5 93 1970 Unknown [id number] 2.16.840.1.586991.3.579.2.5 93 1970 Unknown [id number] 2.16.840.1.231381.3.579.2.5 93 1970 Unknown [id number] 2.16.840.1.946155.3.579.2.5 93 1970 Unknown [id number] 2.16.840.1.205889.3.579.2.5 93 1970 Unknown [id number] 2.16.840.1.816625.3.579.2.5 93 1970 Unknown [id number] 2.16.840.1.909676.3.579.2.5 93 1970 Unknown [id number] 2.16.840.1.207361.3.579.2.5 93 1970 Unknown [id number] 2.16.840.1.907427.3.579.2.5 93 1970 Unknown [id number] 2.16.840.1.628932.3.579.2.5 93 1970 Unknown [id number] 2.16.840.1.567851.3.579.2.5 93 1970 Unknown [id number] 2.16.840.1.505051.3.579.2.5 93 1970 Unknown [id number] 2.16.840.1.167418.3.579.2.5 93 1970 Unknown [id number] 2.16.840.1.870401.3.579.2.5 93 1970 Unknown [id number] 2.16.840.1.784677.3.579.2.5 93 1970 Unknown [id number] 2.16.840.1.854781.3.579.2.5 93 1970 Unknown [id number] 2.16.840.1.117865.3.579.2.5 93 1970 Unknown [id number] 2.16.840.1.532747.3.579.2.5 93 1970 Unknown [id number] 2.16.840.1.630722.3.579.2.5 93 1970 Unknown [id number] 2.16.840.1.268459.3.579.2.7 27 1970 Unknown [id number] 2.16.840.1.186302.3.579.2.7 27 1970 Unknown [id number] 2.16.840.1.092005.3.579.2.1 259 1970 Unknown [id number] 2.16.840.1.124904.3.579.2.1 259 1970 Unknown [id number] 2.16.840.1.374903.3.579.2.1 259 1970 Unknown [id number] 2.16.840.1.915921.3.579.2.1 259 1970 Unknown [id number] 2.16.840.1.754414.3.579.2.1 259 1970 Unknown [id number] 2.16.840.1.605950.3.579.2.1 259 1970 Unknown [id number] 2.16.840.1.236478.3.579.2.1 259 1970 Unknown [id number] 2.16.840.1.547547.3.579.2.1 259 1970 Unknown [id number] 2.16.840.1.601575.3.579.2.1 259 1970 Unknown [id number] 2.16.840.1.928067.3.579.2.1 96 1970 Unknown [id number] 2.16.840.1.614847.3.579.2.1 96 1970 Unknown [id number] 2.16.840.1.965388.3.579.2.1 96 1970 Unknown [id number] 2.16.840.1.236122.3.579.2.1 96 1970 Unknown [id number] 2.16.840.1.937649.3.579.2.1 96 1970 Unknown [id number] 2.16.840.1.685884.3.579.2.1 96 1959 Medicaid [id number] 1959 Private Health Insurance [id number] 1959 Unknown [id number] 2.16.840.1.981698.19 Social History Date Type Detail Facility Start: 02-17-2014 End: 01-29-2025 Tobacco smoking status NHIS Current every day smoker [place] Start: 02-17-1994 History of tobacco use Cigarette Smo ker [place] Start: 02-17-2014 End: 08-26-2024 Cigarettes smoked current (pack per day) - Reported [place] Start: 02-17-2014 Alcohol intake Current drinke r of alcohol (finding) [place] Start: 02-17-2014 Alcohol Comment Rare [place], [place] Start: 1970 Sex Assigned At Not on file M [place] Exposure to SARS-CoV -2 (event) Unable to assess [place] Start: 02-06-2022 Tobacco smoking status Smoker (findi ng) [facility] Start: 07-10-2023 End: 08-26-2024 Sex Assigned At Female [facility] Start: 11-15-2022 End: 06-11-2024 Tobacco smoking status Heavy tobacco smoker (finding) [facility] Start: 07-10-2023 End: 01-29-2025 Tobacco use and [...] Equipment Origin al Text Equipment Identifier Dates [id number] Start: 01-18-2024 USE TO TEST BLOO D SUGAR 4 TIMES DAILY [id number] Start: 07-07-2024 Functional Status Date Assessment Result Facility 01-26-2025 Patient Health [facility] ionnaire 2 item (PHQ-2) [Reported] [facility] 01-26-2025 Trouble falling or s taying asleep, or sleeping too much Not at all 01/26/2025 4:13 PM EDT Mychart, Generic Not at all [facility] 01-26-2025 Feeling tired or hav ing little energy Not at all 01/26/2025 4:13 PM EDT Mychart, Generic Not at all [facility] 01-26-2025 Poor appetite or overeating Not at all 01/26/2025 4:13 PM EDT Mychart, Generic Not at all [facility] 01-26-2025 Feeling bad about yourself-or that you are a failure or have let yourself or your family down Not at all 01/26/2025 4:13 PM EDT Mychart, Generic Not at all [facility] 01-26-2025 Trouble concentratin g on things, such as reading the newspaper or watching television Not at all 01/26/2025 4:13 PM EDT Mychart, Generic Not at all [facility] 01-26-2025 Moving or speaking s o slowly that other people could have noticed. Or the opposite - being so fidgety or restless that you have been moving around a lot more than usual Not at all 01/26/2025 4:13 PM EDT Mychart, Generic Not at all [facility] 01-26-2025 Thoughts that you wo uld be better off , or of hurting yourself in some way Not at all 01/26/2025 4:13 PM EDT Mychart, Generic Not at all [facility] 06-11-[facility]24 Functional Status N/A [facility] 11-15-2022 Functional Status N/A [facility] 02-06-2022 Functional Status N/A [facility] Clinical Notes 01-19-2022 to 02-04-2025 Rain Souza MD - 01/29/2025 9:40 AM Savannah Blas NP - 01/26/2025 6:46 PM Savannah Blas NP - 01/26/2025 6:46 PM EDMicheal Sowcayetanomariyatalia, RECEIVING DOCK CHECKER - 01/26/2025 6:46 PM EDTPatient Instructions Note Date & Type Note Facility 02-04-2025 Note Please let her know her ECHO showed some improvement in the left side wall thickness, it was severely enlarged, now it is moderate. Important for good BP control to continue to improve this. Everything else looks good. Follow-up as planned in 6 months. Thanks! [facility] 01-29-2025 History of Present illness Narrative Images [...] 25 mg, Oral, 2 times daily HYDROcodone-acetaminophen ([place]) 5-325 MG tablet 1 tablet, 3 times [...] Angiomyolipoma Anxiety and depression 07/10/2023 Asthma ([facility]) 07/10/2023 Body mass index (BMI) 50.0-59.9, adult ([facility]) Cellulitis of left lower extremity Cervical cancer ([facility]) 09/17/2023 Chronic pain of both knees 09/17/2023 COPD (chronic obstructive pulmonary disease) ([facility]) 07/10/2023 COPD exacerbation ([facility]) 09/17/2023 Decreased functional mobility 09/17/2023 Diabetic neuropathy ([facility]) 07/10/2023 Dietary counseling and surveillance Edema 07/10/2023 Elevated sed rate Elevated WBC count Essential (primary) hypertension GERD (gastroesophageal reflux disease) 09/17/2023 Hyperlipidemia 09/17/2023 Hypertension 07/10/2023 Insomnia 09/17/2023 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 ([facility]) Lower extremity edema 09/17/2023 Mixed hyperlipidemia Morbid (severe) obesity due to excess calories ([facility]) Obstructive sleep apnea 07/10/2023 PAD (peripheral artery disease) 09/17/2023 Pancreatitis ([facility]) 09/17/2023 Pneumonia 09/17/2023 Proteinuria, unspecified Pulmonary hypertension ([facility]) 09/17/2023 Radiculopathy, lumbar region 09/17/2023 Tobacco user 09/17/2023 Type 2 diabetes mellitus with complication, with long-term current use of insulin ([facility]) 07/10/2023 Unilateral primary osteoarthritis, [...] with long-term current use of insulin ([facility]) - POCT glycosylated hemoglobin (Hb A1C) [...] (BMI) of 50.0 to 59.9 in adult ([facility]) Diet and exercise reviewed with the patient Follow up in about 4 months (around 06/01/2025). documented in this encounter [facility] 01-26-2025 History of Present illness Narrative Associated Problem(s): Anxiety and depression Current meds: elavil, duloxtine, Associated Problem(s): Morbid (severe) obesity due to excess calories ([facility]) Discussed with patient their BMI (actual, [...] Asthma (HCC) Current meds: albuterol, duoneb, Has frickertron checker 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 Associated Problem(s): COPD (chronic [...] 25 mg, Oral, 2 times daily HYDROcodone-acetaminophen ([place]) 5-325 MG tablet 1 tablet, 3 times [...] Angiomyolipoma Anxiety and depression 07/10/2023 Asthma ([facility]) 07/10/2023 Body mass index (BMI) 50.0-59.9, adult ([facility]) Cellulitis of left lower extremity Cervical cancer ([facility]) 09/17/2023 Chronic pain of both knees 09/17/2023 COPD (chronic obstructive pulmonary disease) ([facility]) 07/10/2023 COPD exacerbation ([facility]) 09/17/2023 Decreased functional mobility 09/17/2023 Diabetic neuropathy ([facility]) 07/10/2023 Dietary counseling and surveillance Edema 07/10/2023 Elevated sed rate Elevated WBC count Essential (primary) hypertension GERD (gastroesophageal reflux disease) 09/17/2023 Hyperlipidemia 09/17/2023 Hypertension 07/10/2023 Insomnia 09/17/2023 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 ([facility]) Lower extremity edema 09/17/2023 Mixed hyperlipidemia Morbid (severe) obesity due to excess calories ([facility]) Obstructive sleep apnea 07/10/2023 PAD (peripheral artery disease) 09/17/2023 Pancreatitis ([facility]) 09/17/2023 Pneumonia 09/17/2023 Proteinuria, unspecified Pulmonary hypertension ([facility]) 09/17/2023 Radiculopathy, lumbar region 09/17/2023 Tobacco user 09/17/2023 Type 2 diabetes mellitus with complication, with long-term current use of insulin ([facility]) 07/10/2023 Unilateral primary osteoarthritis, [...] 7.4%!!! COPD (chronic obstructive pulmonary disease) ([facility]) Follows with verena Needs smoking cessation Current meds: duoneb, albuterol, daliresp, Asthma ([facility]) Current meds: albuterol, duoneb, Has frickertron checker 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 Hypertension Please check blood pressure daily and record DASH diet Limit caffeine Take medication as directed Contact office if chest pain, pressure, dizziness, shortness of breath, swelling legs Recommend slow position changes Current meds: hydralazine, lisinopril, Relevant Medications hydrALAZINE (Apresoline) 25 MG tablet lisinopril 20 MG tablet Type 2 diabetes mellitus with complication, with long-term current use of insulin ([facility]) Check blood sugars daily, [...] (Elavil) 25 MG tablet Pulmonary hypertension ([facility]) Has seen [facility] Cardiology Hyperlipidemia On statin therapy [...] Morbid (severe) obesity due to excess calories ([facility]) Discussed with patient their BMI (actual, [...] Associated Problem(s): Pulmonary hypertension (HCC) Has seen [facility] Cardiology Associated Problem(s): Hypertension Please check [...] a yearly basis documented in this encounter [facility] 01-26-2025 Instructions Mckayla Blas NP - 01/26/2025 6:00 PM EDT Please call the [facility] to schedule your mammogram: [phone] ext [phone] documented in this encounter [facility] 01-06-2025 Note Cardiovascular Medic ine [facility] SUBJECTIVE Chief Complaint Patient presents with [...] Bilateral lower extremity edema BMI 50.0-59.9, adult ([facility]) Candidiasis of breast Cardiomegaly Cervical cancer (CMS/HCC) [...] complication, with long-term current use of insulin ([facility]) Unilateral primary osteoarthritis, right hip Vaginal yeast infection Venous insufficiency Bad odor of urine Critical limb ischemia of right lower extremity ([facility]) Hyperpigmentation of skin 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 2 diabetes mellitus ([facility]) Myelolipoma of adrenal gland Venous ulcer of right leg ([facility]) Chronic diastolic heart failure ([facility]) Antibiotic-induced yeast infection Cellulitis of left lower extremity Cigarette nicotine dependence without complication Fever 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 ([facility]) 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 Vitamin D deficiency, unspecified Vitamin deficiency Past Medical History: Diagnosis Date COPD (chronic obstructive pulmonary disease) ([facility]) Diabetes mellitus ([facility]) Hyperlipidemia Hypertension Sleep apnea Family History [...] , Rfl: ergocalciferol (Vitamin D-2) 1.25 MG (10401 Units) capsule, Take 1.25 mg by mouth., [...] and at bedtime., Disp: , Rfl: HYDROcodone-acetaminophen ([place]) 5-325 mg tablet, TAKE 1 TABLET BY MOUTH THREE TIMES A DAY NEEDED FOR PAIN MUST LAST 30 DAYS, Disp: , Rfl: insulin aspart (NovoLOG) 100 unit/mL (3 mL) injection pen, Novolog Flexpen U-100 Insulin aspart 100 unit/mL (3 mL) subcutaneous, Disp: , Rfl: insulin glargine (Lantus Solostar U-100 Insulin) 100 unit/mL (3 mL) injection pen (more content not included)... [facility] 01-06-2025 Note Patient is here toda y [...] Cardiovascular: Positive for leg swelling. [facility] 12-09-2024 History of Present illness Narrative Associated [...] 25 mg, Oral, 2 times daily HYDROcodone-acetaminophen ([place]) 5-325 MG tablet 1 tablet, 3 times [...] CT Albuminuria 09/17/2023 Angiomyolipoma Anxiety and depression ([facility]) 07/10/2023 Asthma 07/10/2023 Body mass index (BMI) 50.0-59.9, adult ([facility]) Cellulitis of left lower extremity Cervical cancer ([facility]) 09/17/2023 Chronic pain of both knees 09/17/2023 COPD (chronic obstructive pulmonary disease) ([facility]) 07/10/2023 COPD exacerbation ([facility]) 09/17/2023 Decreased functional mobility 09/17/2023 Diabetic neuropathy ([facility]) 07/10/2023 Dietary counseling and surveillance Edema 07/10/2023 Elevated sed rate Elevated WBC count Essential (primary) hypertension ([facility]) GERD (gastroesophageal reflux disease) 09/17/2023 Hyperlipidemia ([facility]) 09/17/2023 Hypertension ([facility]) 07/10/2023 Insomnia 09/17/2023 intermediate (current) use of insulin ([facility]) Lower extremity edema 09/17/2023 Mixed hyperlipidemia ([facility]) Morbid (severe) obesity due to excess calories ([facility]) Obstructive sleep apnea 07/10/2023 PAD (peripheral artery disease) ([facility]) 09/17/2023 Pancreatitis 09/17/2023 Pneumonia 09/17/2023 Proteinuria, unspecified Pulmonary hypertension ([facility]) 09/17/2023 Radiculopathy, lumbar region 09/17/2023 Tobacco user 09/17/2023 Type 2 diabetes mellitus with complication, with long-term current use of insulin ([facility]) 07/10/2023 Unilateral primary osteoarthritis, right hip 09/17/2023 [...] Problem List Items Addressed This Visit Hypertension ([facility]) Please check blood pressure daily and record DASH diet Limit caffeine Take medication as directed Contact office if chest pain, pressure, dizziness, shortness of breath, swelling legs Recommend slow position changes Current meds: hydralazine, lisinopril, Type 2 diabetes mellitus with complication, with long-term current use of insulin ([facility]) Check blood sugars [...] is not wearing this today Pulmonary hypertension ([facility]) Has seen [facility] Cardiology Morbid (severe) obesity due to excess calories ([facility]) Discussed with patient their BMI (actual, [...] Associated Problem(s): Pulmonary hypertension (CMS/HCC) Has seen [facility] Cardiology Associated Problem(s): Hypertension (CMS/HCC) Please [...] wearing this today documented in this encounter [facility] 12-09-2024 Instructions Mckayla Blas NP - 12/09/2024 10:00 AM EDT Keep appt with wound care today Keep fu with me, sooner if needed documented in this encounter [facility] 10-27-2024 History of Present illness Narrative Associated [...] 25 mg, Oral, 2 times daily HYDROcodone-acetaminophen ([place]) 5-325 MG tablet 1 tablet, 3 times [...] CT Albuminuria 09/17/2023 Angiomyolipoma Anxiety and depression ([facility]) 07/10/2023 Asthma 07/10/2023 Body mass index (BMI) 50.0-59.9, adult ([facility]) Cellulitis of left lower extremity Cervical cancer ([facility]) 09/17/2023 Chronic pain of both knees 09/17/2023 COPD (chronic obstructive pulmonary disease) ([facility]) 07/10/2023 COPD exacerbation ([facility]) 09/17/2023 Decreased functional mobility 09/17/2023 Diabetic neuropathy ([facility]) 07/10/2023 Dietary counseling and surveillance Edema 07/10/2023 Elevated sed rate Elevated WBC count Essential (primary) hypertension ([facility]) GERD (gastroesophageal reflux disease) 09/17/2023 Hyperlipidemia ([facility]) 09/17/2023 Hypertension ([facility]) 07/10/2023 Insomnia 09/17/2023 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 ([facility]) Lower extremity edema 09/17/2023 Mixed hyperlipidemia ([facility]) Morbid (severe) obesity due to excess calories ([facility]) Obstructive sleep apnea 07/10/2023 PAD (peripheral artery disease) ([facility]) 09/17/2023 Pancreatitis 09/17/2023 Pneumonia 09/17/2023 Proteinuria, unspecified Pulmonary hypertension ([facility]) 09/17/2023 Radiculopathy, lumbar region 09/17/2023 Tobacco user 09/17/2023 Type 2 diabetes mellitus with complication, with long-term current use of insulin ([facility]) 07/10/2023 Unilateral primary [...] List Items Addressed This Visit Diabetic neuropathy ([facility]) - Primary Continue with cintia hudson mgmt is prescribing OARRS reviewed Fu in 3 months Goal: tighter glucose control, this has been improving, latest A1c is 7.4%!!! Hypertension ([facility]) Please check blood pressure daily and record DASH diet Limit caffeine Take medication as directed Contact office if chest pain, pressure, dizziness, shortness of breath, swelling legs Recommend slow position changes Current meds: hydralazine, lisinopril, Relevant Medications hydrALAZINE (Apresoline) 25 MG tablet lisinopril 20 MG tablet Type 2 diabetes mellitus with complication, with long-term current use of insulin ([facility]) Check blood sugars [...] 81 MG chewable tablet Anxiety and depression ([facility]) Current meds: elavil, duloxtine, Relevant Medications DULoxetine (Cymbalta) [address] capsule Bilateral lower extremity edema Limit sodium , elevate legs, furosemide Relevant Medications furosemide (Lasix) 20 MG tablet potassium chloride ER (Micro-K) 10 MEQ ER capsule furosemide (Lasix) 40 MG tablet Insomnia Relevant Medications amitriptyline (Elavil) 25 MG tablet PAD (peripheral artery disease) ([facility]) Asa, statin Quit [...] Relevant Medications ergocalciferol (Vitamin D2) 1.25 MG (79554 UT) capsule Gastro-esophageal reflux disease without esophagitis [...] use of insulin ([facility]) Check blood sugars daily, [...] duoneb, albuterol, daliresp, Associated Problem(s): Diabetic neuropathy ([facility]) Continue with cintia hudson is prescribing OARRS reviewed Fu in 3 months Goal: tighter glucose control, this has been improving, latest A1c is 7.4%!!! documented in this encounter [facility] 10-27-2024 Instructions Mckayla Blas NP - 10/27/2024 2:00 PM EDT No dose changes in meds You will be due for mammogram I will send order to [facility], they should call you to schedule If no call, please call [phone] documented in this encounter [facility] 10-08-2024 History of Present illness Narrative Images [...] or chew. ergocalciferol (Vitamin D2) 1.25 MG (46159 UT) capsule TAKE 1 CAPSULE BY MOUTH [...] 25 mg, Oral, 2 times daily HYDROcodone-acetaminophen ([place]) 5-325 MG tablet 1 tablet, 3 times [...] CT Albuminuria 09/17/2023 Angiomyolipoma Anxiety and depression ([facility]) 07/10/2023 Asthma ([facility]) 07/10/2023 Body mass index (BMI) 50.0-59.9, adult ([facility]) Cellulitis of left lower extremity Cervical cancer ([facility]) 09/17/2023 Chronic pain of both knees 09/17/2023 COPD (chronic obstructive pulmonary disease) ([facility]) 07/10/2023 COPD exacerbation ([facility]) 09/17/2023 Decreased functional mobility 09/17/2023 Diabetic neuropathy ([facility]) 07/10/2023 Dietary counseling and surveillance Edema 07/10/2023 Elevated sed rate Elevated WBC count Essential (primary) hypertension ([facility]) GERD (gastroesophageal reflux disease) 09/17/2023 Hyperlipidemia ([facility]) 09/17/2023 Hypertension ([facility]) 07/10/2023 Insomnia 09/17/2023 intermediate (current) use of insulin ([facility]) Lower extremity edema 09/17/2023 Mixed hyperlipidemia ([facility]) Morbid (severe) obesity due to excess calories ([facility]) Obstructive sleep apnea 07/10/2023 PAD (peripheral artery disease) ([facility]) 09/17/2023 Pancreatitis 09/17/2023 Pneumonia 09/17/2023 Proteinuria, unspecified Pulmonary hypertension ([facility]) 09/17/2023 Radiculopathy, lumbar region 09/17/2023 Tobacco user 09/17/2023 Type 2 diabetes mellitus with complication, with long-term current use of insulin ([facility]) 07/10/2023 Unilateral primary osteoarthritis, right hip 09/17/2023 [...] months (around 02/07/2025). documented in this encounter [facility] 08-27-2024 History of Present illness Narrative Associated [...] or chew. ergocalciferol (Vitamin D2) 1.25 MG (72474 UT) capsule TAKE 1 CAPSULE BY MOUTH [...] 25 mg, Oral, 2 times daily HYDROcodone-acetaminophen ([place]) 5-325 MG tablet 1 tablet, 3 times [...] CT Albuminuria 09/17/2023 Angiomyolipoma Anxiety and depression ([facility]) 07/10/2023 Asthma ([facility]) 07/10/2023 Body mass index (BMI) 50.0-59.9, adult ([facility]) Cellulitis of left lower extremity Cervical cancer ([facility]) 09/17/2023 Chronic pain of both knees 09/17/2023 COPD (chronic obstructive pulmonary disease) ([facility]) 07/10/2023 COPD exacerbation ([facility]) 09/17/2023 Decreased functional mobility 09/17/2023 Diabetic neuropathy ([facility]) 07/10/2023 Dietary counseling and surveillance Edema 07/10/2023 Elevated sed rate Elevated WBC count Essential (primary) hypertension ([facility]) GERD (gastroesophageal reflux disease) 09/17/2023 Hyperlipidemia ([facility]) 09/17/2023 Hypertension ([facility]) 07/10/2023 Insomnia 09/17/2023 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 ([facility]) Lower extremity edema 09/17/2023 Mixed hyperlipidemia ([facility]) Morbid (severe) obesity due to excess calories ([facility]) Obstructive sleep apnea 07/10/2023 PAD (peripheral artery disease) ([facility]) 09/17/2023 Pancreatitis 09/17/2023 Pneumonia 09/17/2023 Proteinuria, unspecified Pulmonary hypertension ([facility]) 09/17/2023 Radiculopathy, lumbar region 09/17/2023 Tobacco user 09/17/2023 Type 2 diabetes mellitus with complication, with long-term current use of insulin ([facility]) 07/10/2023 Unilateral primary osteoarthritis, right hip 09/17/2023 [...] List Items Addressed This Visit Diabetic neuropathy ([facility]) Continue with cintia hudson mgmt is prescribing OARRS reviewed Fu in 3 months Goal: tighter glucose control Hypertension ([facility]) Please check blood pressure daily and [...] complication, with long-term current use of insulin ([facility]) Check blood sugars [...] complication, with long-term current use of insulin ([facility]) Check blood sugars [...] Morbid (severe) obesity due to excess calories ([facility]) Discussed with patient their BMI (actual, [...] Problem(s): Malignant neoplasm of cervix uteri, unspecified ([facility]) Had in the past, had hysterectomy [...] Asthma (CMS/HCC) Current meds: albuterol, duoneb, Has frickertron checker 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 Associated Problem(s): Obstructive sleep [...] tighter glucose control documented in this encounter [facility] 08-08-2024 Note [place] [facility] - [facility] [...] Other chronic pain PAD (peripheral artery disease) ([facility]) Pneumonia Encounter for screening mammogram for malignant neoplasm of breast Pulmonary hypertension ([facility]) Radiculopathy, lumbar region Current smoker Type 2 diabetes mellitus with complication, with long-term current use of insulin ([facility]) Unilateral primary osteoarthritis, right hip Vaginal yeast infection Venous insufficiency Bad odor of urine Critical limb ischemia of right lower extremity ([facility]) Hyperpigmentation of skin 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 2 diabetes mellitus ([facility]) Myelolipoma of adrenal gland Venous ulcer of right leg ([facility]) HPI Patient was [...] Diagnosis Date COPD (chronic obstructive pulmonary disease) ([facility]) Diabetes mellitus ([facility]) Hyperlipidemia Hypertension Sleep [...] , Rfl: ergocalciferol (Vitamin D-2) 1.25 MG (71578 Units) capsule, Take 1.25 mg by mouth., [...] and at bedtime., Disp: , Rfl: HYDROcodone-acetaminophen ([place]) 5-325 mg tablet, TAKE 1 TABLET BY [...] Disp: (more content not included)... [facility] 07-14-2024 History of Present illness Narrative Associated [...] or chew. ergocalciferol (Vitamin D2) 1.25 MG (20213 UT) capsule TAKE 1 CAPSULE BY MOUTH ONE TIME PER WEEK furosemide (LASIX) 40 mg, Oral, Daily furosemide (LASIX) 20 mg, Oral, Daily PRN, Take in the afternoon as needed hydrALAZINE (APRESOLINE) 25 mg, Oral, 2 times daily HYDROcodone-acetaminophen ([place]) 5-325 MG tablet 1 tablet, 3 times [...] CT Albuminuria 09/17/2023 Angiomyolipoma Anxiety and depression ([facility] 07/10/2023 Asthma ([facility]) 07/10/2023 Body mass index (BMI) 50.0-59.9, adult ([facility]) Cellulitis of left lower extremity Cervical cancer ([facility]) 09/17/2023 Chronic pain of both knees 09/17/2023 COPD (chronic obstructive pulmonary disease) ([facility]) 07/10/2023 COPD exacerbation ([facility]) 09/17/2023 Decreased functional mobility 09/17/2023 Diabetic neuropathy ([facility]) 07/10/2023 Dietary counseling and surveillance Edema 07/10/2023 Elevated sed rate Elevated WBC count Essential (primary) hypertension ([facility]) GERD (gastroesophageal reflux disease) 09/17/2023 Hyperlipidemia ([facility]) 09/17/2023 Hypertension ([facility]) 07/10/2023 Insomnia 09/17/2023 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 ([facility]) Lower extremity edema 09/17/2023 Mixed hyperlipidemia ([facility]) Morbid (severe) obesity due to excess calories ([facility]) Obstructive sleep apnea 07/10/2023 PAD (peripheral artery disease) ([facility]) 09/17/2023 Pancreatitis 09/17/2023 Pneumonia 09/17/2023 Proteinuria, unspecified Pulmonary hypertension ([facility]) 09/17/2023 Radiculopathy, lumbar region 09/17/2023 Tobacco user 09/17/2023 Type 2 diabetes mellitus with complication, with long-term current use of insulin ([facility]) 07/10/2023 Unilateral primary [...] List Items Addressed This Visit Diabetic neuropathy ([facility]) Continue with tristan EAST reviewed Fu in 3 months COPD (chronic obstructive pulmonary disease) ([facility]) Stable at this time, no changes in meds Encouraged smoking cessation Cont with dr Yañez Hypertension ([facility]) - Primary Please check blood pressure daily and record DASH diet Limit caffeine Take medication as directed Contact office if chest pain, pressure, dizziness, shortness of breath, swelling legs Recommend slow position changes Current meds: hydralazine, lisinopril, Type 2 diabetes mellitus with complication, with long-term current use of insulin ([facility]) Check blood sugars [...] take over prescribing PAD (peripheral artery disease) ([facility]) Asa, statin Quit smoking [...] 1 cm to 4 cm in diameter ([facility]/H[facility]) Continue with Urology Kidney stone Continue with Urology Non-seasonal allergic rhinitis Relevant Medications cetirizine (ZyrTEC) 10 MG tablet Critical limb ischemia of right lower extremity ([facility]/HCC) Saw vascular, does have narrowing in arteries in legs, and thus the wounds not healing At this point they strongly urge to quit smoking or risk limb amputation Cont asa and statin Also good blood pressure and sugar control Venous ulcer of right leg ([facility]) Encounter for smoking cessation counseling Relevant Medications nicotine (Nicoderm, Step 1) 21 MG/24HR patch Other Visit Diagnoses Type 2 diabetes mellitus with unspecified complications ([facility]) Quitting smokinppd, chantix [...] use of insulin ([facility]) Check blood sugars daily, [...] in 3 months documented in this encounter [facility] 06-11-[facility] Hospital Discharge instructions Patient Education 06/11/2024 [...] require a prescription. You can also purchase gbjn-osw-uhnoovj medicines. Medicines may have nicotine in them [...] and encouragement. Call telephone quitlines, such as 6-647-RAUR-NOW, reach out to support groups, or work [...] provider. Document Revised: 06/16/2022 Document Reviewed: 06/16/2022 [employer] Patient Education 2023 Overinteractive Media. 06/11/2024 10:39:22 Dietary Guidelines to Help Prevent [...] include: ?8 oz (237 mL) of milk, liercyw-yxejndprpdgl-jqrrg milk, and calcium-fortifiedfruit juice. Calcium-fortified means that [...] ?Spinach (cooked), rhubarb, beets, sweet potatoes, and Cuban chard. ?Peanuts. ?Potato chips, italian fries, and baked potatoes with skin on. ?Nuts and nut products. ?Chocolate. If you regularly take a diuretic medicine, make sure to eat at least 1 or 2 servings of fruits or vegetables that are high in potassium each day. These include: ?Avocado. ?Banana. ?[place], prune, carrot, or tomato juice. ?Baked potato. [...] magnesium, fish oil, or vitamin B6. Take puzg-aec-jfxvmxp and prescription medicines only as told by [...] Casseroles. Pizza. Lasagna. Frozen meals. Potato chips. [place] Leonean fries. The items listed above may not [...] provider. Document Revised: 10/05/2022 Document Reviewed: 10/05/2022 [employer] Patient Education 2023 Overinteractive Media. Follow Up Care 05/06/2024 08:24:56 With:REGLA PHIPPS, Elbert Joya, URL Address: [facility] [address], [place] [address]- When: Unknown [facility] 05-27-2024 History of Present illness Narrative Mitzi [...] or chew. ergocalciferol (Vitamin D2) 1.25 MG (01283 UT) capsule TAKE 1 CAPSULE BY MOUTH ONE TIME PER WEEK furosemide (LASIX) 20 mg, Oral, Daily PRN, Take in the afternoon as needed furosemide (LASIX) 40 mg, Oral, Daily Glucose Blood (ACCU-CHEK JAQUI PLUS ) 4 times daily hydrALAZINE (APRESOLINE) 25 mg, Oral, 2 times daily HYDROcodone-acetaminophen ([place]) 5-325 MG tablet 1 tablet, 3 times [...] CT Albuminuria 09/17/2023 Angiomyolipoma Anxiety and depression ([facility]) 07/10/2023 Asthma ([facility]) 07/10/2023 Body mass index (BMI) 50.0-59.9, adult ([facility]) Cellulitis of left lower extremity Cervical cancer ([facility]) 09/17/2023 Chronic pain of both knees 09/17/2023 COPD (chronic obstructive pulmonary disease) ([facility]) 07/10/2023 COPD exacerbation ([facility]) 09/17/2023 Decreased functional mobility 09/17/2023 Diabetic neuropathy ([facility]) 07/10/2023 Dietary counseling and surveillance Edema 07/10/2023 Elevated sed rate Elevated WBC count GERD (gastroesophageal reflux disease) 09/17/2023 Hyperlipidemia ([facility]) 09/17/2023 Hypertension ([facility]) 07/10/2023 Insomnia 09/17/2023 intermediate (current) use of insulin ([facility]) Lower extremity edema 09/17/2023 Morbid (severe) obesity due to excess calories ([facility]) Obstructive sleep apnea 07/10/2023 PAD (peripheral artery disease) ([facility]) 09/17/2023 Pancreatitis 09/17/2023 Pneumonia 09/17/2023 Proteinuria, unspecified Pulmonary hypertension ([facility]) 09/17/2023 Radiculopathy, lumbar region 09/17/2023 Tobacco user 09/17/2023 Type 2 diabetes mellitus with complication, with long-term current use of insulin ([facility]) 07/10/2023 Unilateral primary osteoarthritis, right hip 09/17/2023 [...] hyperglycemia, with long-term current use of insulin ([facility]) - POCT glucose manually resulted - POCT glycosylated hemoglobin (Hb A1C) docked device We will continue with Lantus 58, lispro 02/16/12 according to meal size, Mounjaro 15 mg once weekly, Farxiga 5 mg once a day Encounter for dietary consultation Vitamin D deficiency Primary hypertension ([facility]) To follow with her PCP Insulin long-term use ([facility]) Hyperlipemia, mixed ([facility]) Continue with Zocor 10 mg once daily Microalbuminuria Class 3 severe obesity due to excess calories with serious comorbidity and body mass index (BMI) of 50.0 to 59.9 in adult ([facility]) Diet and exercise [...] being taken. She does not see a propeller mechanic.Eye exam is not current. Hypertension This [...] or chew. ergocalciferol (Vitamin D2) 1.25 MG (23501 UT) capsule TAKE 1 CAPSULE BY MOUTH ONE TIME PER WEEK furosemide (LASIX) 20 mg, Oral, Daily PRN, Take in the afternoon as needed furosemide (LASIX) 40 mg, Oral, Daily Glucose Blood (ACCU-CHEK JAQUI PLUS ) 4 times daily HumaLOG KWIKPEN 100 UNIT/ML injection Subcutaneous hydrALAZINE (APRESOLINE) 25 mg, Oral, 2 times daily HYDROcodone-acetaminophen ([place]) 5-325 MG tablet 1 tablet, 3 times [...] CT Albuminuria 09/17/2023 Angiomyolipoma Anxiety and depression ([facility]) 07/10/2023 Asthma ([facility]) 07/10/2023 Cellulitis of left lower extremity Cervical cancer ([facility]) 09/17/2023 Chronic pain of both knees 09/17/2023 COPD (chronic obstructive pulmonary disease) ([facility]) 07/10/2023 COPD exacerbation ([facility]) 09/17/2023 Decreased functional mobility 09/17/2023 Diabetic neuropathy ([facility]) 07/10/2023 Edema 07/10/2023 Elevated sed rate Elevated WBC count GERD (gastroesophageal reflux disease) 09/17/2023 Hyperlipidemia ([facility]) 09/17/2023 Hypertension ([facility]) 07/10/2023 Insomnia 09/17/2023 Lower extremity edema 09/17/2023 Obstructive sleep apnea 07/10/2023 PAD (peripheral artery disease) ([facility]) 09/17/2023 Pancreatitis 09/17/2023 Pneumonia 09/17/2023 Pulmonary hypertension ([facility]) 09/17/2023 Radiculopathy, lumbar region 09/17/2023 Tobacco user 09/17/2023 Type 2 diabetes mellitus with complication, with long-term current use of insulin ([facility]) 07/10/2023 Unilateral primary osteoarthritis, right hip 09/17/2023 [...] smoking cessation Cont with dr Yañez Hypertension ([facility]) Stable on current meds Refill meds Relevant Medications hydrALAZINE (Apresoline) 25 MG tablet lisinopril 20 MG tablet Type 2 diabetes mellitus with complication, with long-term current use of insulin ([facility]) Check blood sugars [...] 81 MG chewable tablet Anxiety and depression ([facility]) Relevant Medications DULoxetine (Cymbalta) [address] capsule Bilateral lower extremity edema Stable on current meds Insomnia Relevant Medications amitriptyline (Elavil) 25 MG tablet Tobacco user Urged to quit Non-seasonal allergic rhinitis Relevant Medications cetirizine (ZyrTEC) 10 MG tablet Hyperpigmentation of skin Will try cerevue ointment to see if helps Other Visit Diagnoses Type 2 diabetes mellitus with unspecified complications ([facility]) Relevant Medications dapagliflozin (Farxiga) 10 MG Gastro-esophageal reflux disease without esophagitis Relevant Medications omeprazole (PriLOSEC) [address] capsule Edema, unspecified Relevant Medications potassium chloride ER (Micro-K) 10 MEQ ER capsule Edema Relevant Medications potassium chloride ER (Micro-K) 10 MEQ ER capsule Chronic obstructive pulmonary disease, unspecified ([facility]) Relevant Medications Roflumilast 500 MCG tablet documented in this encounter [facility] 11-15-2022 Hospital Discharge instructions Patient Education 11/15/2022 [...] include: ?8 oz (237 mL) of milk, qtolufj-vbeqzccfsetf-bdxcx milk, and calcium-fortifiedfruit juice. Calcium-fortified means that [...] ?Spinach (cooked), rhubarb, beets, sweet potatoes, and Cuban chard. ?Peanuts. ?Potato chips, italian fries, and baked potatoes with skin on. ?Nuts and nut products. ?Chocolate. If you regularly take a diuretic medicine, make sure to eat at least 1 or 2 servings of fruits or vegetables that are high in potassium each day. These include: ?Avocado. ?Banana. ?[place], prune, carrot, or tomato juice. ?Baked potato. [...] magnesium, fish oil, or vitamin B6. Take usrp-hur-zamlqrj and prescription medicines only as told by [...] Casseroles. Pizza. Lasagna. Frozen meals. Potato chips. [place]an fries. The items listed above may not [...] provider. Document Revised: 03/06/2022 Document Reviewed: 03/06/2022 [employer] Patient Education 2022 Overinteractive Media. Follow Up Care 02/06/2022 11:44:09 With:SARAH VEGA PA-C, URL Address: [address] [address] When: Unknown [facility] [place] 08-24-2022 Note CONSULTATION CONSULTATION DATE: 08/24/2022 [...] We maintain her on pain medication with [place] 5/325 t.i.d., diclofenac 75 mg b.i.d. Her [...] her at this point. A refill for [place] 5/325 t.i.d. and diclofenac 75 mg b.i.d. will be sent to the pharmacy. Vitamin compliance and nutrition were discussed and enforced. I did highly encourage her to use exercise bands to increase the strength in her lower extremities. We will see her in three months' time, unless otherwise indicated, and patient agrees. [facility] 05-11-2022 Note CONSULTATION CONSULTATION DATE: 05/11/2022 [...] 150. Medications include Lyrica 300 mg b.i.d., [place] 5/325 t.i.d., diclofenac 75 mg b.i.d. and [...] her medications today. We will maintain Lyrica, [place] and diclofenac at the set dose and frequency. We will follow-up in the clinic in three months' time. The patient is in agreement to this. Vitamin importance and nutrition were discussed. [facility] 04-20-2022 Note CONSULTATION CONSULTATION DATE: 04/20/2022 [...] medications include Tylenol, Lyrica 300 mg b.i.d., [place] 5/325 t.i.d., amitriptyline, diclofenac and duloxetine. Patient's [...] followed up in the clinic. [facility] 03-08-2022 Evaluation note Encounter Date Diagnosis [...] to the DANIEL. Thrombocytopenia is unclear etiology. [employer] Other 08-15-2022 Evaluation note* Encounter Date Diagnosis [...] follow with Dr. Souza and Dr. Arauz. [place] [employer] Other 08-01-2022 Hospital Discharge instructions Patient Education [...] fried and sweet foods. General instructions Take bmfx-wis-cjfccsg and prescription medicines only as told by [...] 04/21/2010 Document Revised: 10/16/2019 Document Reviewed: 07/11/2018 [employer] Patient Education 2020 Overinteractive Media. Follow Up Care 01/05/2022 12:02:03 With:REGLA PHIPPS, Elbert R, URL Address: [facility] [address] [place] [address]- [phone] When:Within 6 Month(s) Comments:w/ repeat CT A/P [facility] 07-14-2022 NoteCONSULTATION PROCEDURE DATE: 01/19/2022 PRE AND [...] and Approved by: GIL VALENZUELA . 01/27/2022 14:15:00[facility]07-14-2022 NoteCONSULTATION CONSULTATION DATE: 01/19/2022 This is a [...] today. Medications include Lyrica 300 mg b.i.d., [place] 5/325 t.i.d., diclofenac 75 mg b.i.d. and [...] and Approved by: GIL VALENZUELA . 01/27/2022 [facility]ments Appointment Date:08/14/2022 09:15:00 AM Scheduled Provider:Elbert ARAUZ MD Location:[facility] Appointment Type:URO Office Visit [facility] evaluation + Plan note Future Appointments Appointment Date:04/22/2024 10:00:00 AM Scheduled Provider:SARAH VEGA PA-C Location:[facility] Appointment Type:URO Office Visit [facility] evaluation note* Diagnosis Type 2 diabetes mellitus with unspecified complications (CMS/HCC) Edema, unspecified Edema [facility] Diagnosis Vaginal yeast infection- Primary Candidiasis of vulva and vagina [facility] Diagnosis Primary hypertension (CMS/HCC)- Primary Unspecified essential hypertension Insomnia Insomnia, unspecified Type 2 diabetes mellitus with complication, with long-term current use of insulin ([facility]) Non-seasonal allergic rhinitis, unspecified trigger Type 2 diabetes mellitus with unspecified complications ([facility]) Anxiety and depression ([facility]) Gastro-esophageal reflux disease without esophagitis Edema, unspecified Edema Diabetic polyneuropathy associated with type 2 diabetes mellitus ([facility]) Chronic obstructive pulmonary disease, unspecified ([facility]) Pulmonary emphysema, unspecified emphysema type ([facility]) Bilateral lower extremity edema Tobacco user Tobacco use disorder Hyperpigmentation of skin Other dyschromia documented in this encounter [facility]* Diagnosis Obstructive sleep apnea- Primary Obstructive sleep apnea (adult) (pediatric) Pulmonary emphysema, unspecified emphysema type ([facility]) Primary hypertension ([facility]) Unspecified essential hypertension Type 2 diabetes mellitus with complication, with long-term current use of insulin ([facility]) Anxiety and depression ([facility]) Bilateral lower extremity edema Pulmonary emphysema, unspecified emphysema type ([facility])- Primary Primary hypertension ([facility]) Unspecified essential hypertension Class 3 severe obesity with serious comorbidity and body mass index (BMI) of 50.0 to 59.9 in adult, unspecified obesity type ([facility]) Obstructive sleep apnea Obstructive sleep apnea (adult) (pediatric) Pulmonary hypertension ([facility]) Other chronic pulmonary heart diseases Tobacco user Tobacco use disorder Cardiomegaly Primary hypertension ([facility])- Primary Unspecified essential hypertension Gastroesophageal reflux disease, unspecified whether esophagitis present Type 2 diabetes mellitus with complication, with long-term current use of insulin ([facility]) Mixed hyperlipidemia ([facility]) Mixed hyperlipidemia Tobacco user Tobacco use disorder Encounter for screening mammogram for malignant neoplasm of breast Chronic obstructive pulmonary disease, unspecified ([facility]) Other specified chronic obstructive pulmonary disease ([facility]) Anxiety and depression ([facility]) Edema, unspecified Edema Hyperlipidemia, unspecified ([facility]) Diabetic polyneuropathy associated with type 2 diabetes mellitus ([facility]) Gout, unspecified cause, unspecified chronicity, unspecified site Non-seasonal allergic rhinitis, unspecified trigger Bilateral lower extremity edema COPD exacerbation ([facility]) Obstructive chronic bronchitis with exacerbation Pulmonary emphysema, unspecified emphysema type ([facility]) Venous insufficiency Unspecified venous (peripheral) insufficiency Candidiasis of breast COPD exacerbation ([facility])- Primary Obstructive chronic bronchitis [...] depressive disorder, single episode, mild (HCC) ([facility]) Major depressive disorder, single episode, mild [...] (CMS/HCC) Unspecified essential hypertension Insulin long-term use ([facility]) Encounter for long-term (current) use of insulin Hyperlipemia, mixed ([facility]) Mixed hyperlipidemia Microalbuminuria Proteinuria Class 3 severe obesity due to excess calories with serious comorbidity and body mass index (BMI) of 50.0 to 59.9 in adult ([facility]) documented in this encounter [facility]* Diagnosis Hyperlipidemia, unspecified ([facility]) Bilateral lower extremity edema documented in this encounter [facility]* Diagnosis Vitamin D deficiency, unspecified documented in this encounter [facility]* Diagnosis Obstructive sleep apnea- Primary Obstructive sleep apnea (adult) (pediatric) Pulmonary emphysema, unspecified emphysema type ([facility]) Primary hypertension ([facility]) Unspecified essential hypertension Type 2 diabetes mellitus with complication, with long-term current use of insulin ([facility]) Anxiety and depression ([facility]) Bilateral lower extremity edema Pulmonary emphysema, unspecified emphysema type ([facility])- Primary Primary hypertension ([facility]) Unspecified essential hypertension Class 3 severe obesity with serious comorbidity and body mass index (BMI) of 50.0 to 59.9 in adult, unspecified obesity type ([facility]) Obstructive sleep apnea Obstructive sleep apnea (adult) (pediatric) Pulmonary hypertension ([facility]) Other chronic pulmonary heart diseases Tobacco user Tobacco use disorder Cardiomegaly Primary hypertension ([facility])- Primary Unspecified essential hypertension Gastroesophageal reflux disease, unspecified whether esophagitis present Type 2 diabetes mellitus with complication, with long-term current use of insulin ([facility]) Mixed hyperlipidemia ([facility]) Mixed hyperlipidemia Tobacco user Tobacco use disorder Encounter for screening mammogram for malignant neoplasm of breast Chronic obstructive pulmonary disease, unspecified ([facility] [facility] [place] Other specified chronic obstructive pulmonary disease ([facility]) Anxiety and depression ([facility]) Edema, unspecified Edema Hyperlipidemia, unspecified ([facility]) Diabetic polyneuropathy associated with type 2 diabetes mellitus ([facility]) Gout, unspecified cause, unspecified chronicity, unspecified site Non-seasonal allergic rhinitis, unspecified trigger Bilateral lower extremity edema COPD exacerbation ([facility]) Obstructive chronic bronchitis with exacerbation Pulmonary emphysema, unspecified emphysema type ([facility]) Venous insufficiency Unspecified venous (peripheral) insufficiency Candidiasis of breast COPD exacerbation ([facility] [place] Primary Obstructive chronic bronchitis with exacerbation Pulmonary hypertension ([facility]) Other chronic pulmonary heart diseases Class [...] of breast Chronic obstructive pulmonary disease, unspecified ([facility]) Other specified chronic obstructive pulmonary disease (CMS/HCC) Anxiety and depression (CMS/HCC) Edema, unspecified Edema Hyperlipidemia, unspecified ([facility]) Diabetic polyneuropathy associated with type 2 diabetes mellitus ([facility]) Gout, unspecified cause, unspecified chronicity, unspecified site Non-seasonal allergic rhinitis, unspecified trigger Bilateral lower extremity edema COPD exacerbation ([facility]) Obstructive chronic bronchitis with exacerbation Pulmonary emphysema, unspecified emphysema type (CMS/HCC) Venous insufficiency Unspecified venous (peripheral) insufficiency Candidiasis of breast COPD exacerbation (CMS/HCC)- Primary Obstructive chronic bronchitis with exacerbation Pulmonary hypertension (CMS/HCC) Other chronic pulmonary heart diseases Class 3 severe obesity with serious comorbidity and body mass index (BMI) of 50.0 to 59.9 in adult, unspecified obesity type ([facility]/HCC) Encounter for subsequent annual wellness visit [...] Major depressive disorder, single episode, mild (HCC) ([facility]/HCC) Major depressive disorder, single episode, mild [...] use of insulin ([facility]) Non-seasonal allergic rhinitis, unspecified trigger Type 2 diabetes mellitus with unspecified complications ([facility]) Anxiety and depression ([facility]) Gastro-esophageal reflux disease without esophagitis Edema, unspecified Edema Diabetic polyneuropathy associated with type 2 diabetes mellitus ([facility]) Chronic obstructive pulmonary disease, unspecified ([facility]) Pulmonary emphysema, unspecified emphysema type (CMS/HCC) Bilateral lower extremity edema Tobacco user Tobacco use disorder Hyperpigmentation of skin Other dyschromia Primary hypertension (CMS/HCC)- Primary Unspecified essential hypertension Diabetic polyneuropathy associated with type 2 diabetes mellitus (CMS/HCC) Pulmonary emphysema, unspecified emphysema type (CMS/HCC) Critical limb ischemia of right lower extremity (CMS/HCC) PAD (peripheral artery disease) ([facility]) Unspecified peripheral vascular disease Gastroesophageal reflux disease, unspecified whether esophagitis present Bilateral lower extremity edema Venous ulcer of right leg ([facility]) Type 2 diabetes mellitus with complication, with long-term current use of insulin ([facility]) Tobacco user Tobacco use disorder Encounter for smoking cessation counseling Kidney stone Calculus of kidney Adrenal mass 1 cm to 4 cm in diameter ([facility]) Radiculopathy, lumbar region Thoracic or lumbosacral neuritis or radiculitis, unspecified Non-seasonal allergic rhinitis, unspecified trigger Type 2 diabetes mellitus with unspecified complications (CMS/HCC) documented in this encounter [facility] HealthcareEvaluation note* Diagnosis Obstructive sleep apnea- Primary Obstructive sleep apnea (adult) (pediatric) Pulmonary emphysema, unspecified emphysema type (CMS/HCC) Primary hypertension ([facility]) Unspecified essential hypertension Type 2 diabetes mellitus with complication, with long-term current use of insulin ([facility]) Anxiety and depression ([facility]) Bilateral lower extremity edema Pulmonary emphysema, unspecified emphysema type ([facility]/HCC)- Primary Primary hypertension ([facility]) Unspecified essential hypertension Class 3 severe obesity with serious comorbidity and body mass index (BMI) of 50.0 to 59.9 in adult, unspecified obesity type ([facility]) Obstructive sleep apnea Obstructive sleep apnea (adult) (pediatric) Pulmonary hypertension ([facility]) Other chronic pulmonary heart diseases Tobacco user Tobacco use disorder Cardiomegaly Primary hypertension ([facility])- Primary Unspecified essential hypertension Gastroesophageal reflux disease, unspecified whether esophagitis present Type 2 diabetes mellitus with complication, with long-term current use of insulin ([facility]) Mixed hyperlipidemia ([facility]) Mixed hyperlipidemia Tobacco user Tobacco use disorder Encounter for screening mammogram for malignant neoplasm of breast Chronic obstructive pulmonary disease, unspecified ([facility]) Other specified chronic obstructive pulmonary disease ([facility]) Anxiety and depression ([facility]) Edema, unspecified Edema Hyperlipidemia, unspecified ([facility]) Diabetic polyneuropathy associated with type 2 diabetes mellitus ([facility]) Gout, unspecified cause, unspecified chronicity, unspecified site Non-seasonal allergic rhinitis, unspecified trigger Bilateral lower extremity edema COPD exacerbation ([facility]) Obstructive chronic bronchitis with exacerbation Pulmonary emphysema, unspecified emphysema type ([facility]) Venous insufficiency Unspecified venous (peripheral) insufficiency Candidiasis of breast COPD exacerbation ([facility])- Primary Obstructive chronic bronchitis with exacerbation Pulmonary hypertension ([facility]) Other chronic pulmonary heart diseases Class 3 severe obesity with serious comorbidity and body mass index (BMI) of 50.0 to 59.9 in adult, unspecified obesity type ([facility]) Encounter for subsequent annual wellness visit (AWV) in Medicare patient- Primary Type 2 diabetes mellitus with unspecified complications ([facility]) Pulmonary emphysema, unspecified emphysema type ([facility]) Moderate persistent asthma without complication ([facility]) Primary hypertension ([facility]) Unspecified essential hypertension Type 2 diabetes mellitus with complication, with long-term current use of insulin ([facility]) Class 3 severe obesity with serious comorbidity and body mass index (BMI) of 50.0 to 59.9 in adult, unspecified obesity type ([facility]) Tobacco user Tobacco [...] use of insulin ([facility]) Non-seasonal allergic rhinitis, unspecified trigger Type 2 diabetes mellitus with unspecified complications (CMS/HCC) Anxiety and depression ([facility]) Gastro-esophageal reflux disease without [...] limb ischemia of right lower extremity ([facility]) PAD (peripheral artery disease) ([facility]) Unspecified peripheral vascular disease Gastroesophageal reflux disease, unspecified whether esophagitis present Bilateral lower extremity edema Venous ulcer of right leg ([facility]) Type 2 diabetes mellitus with complication, with long-term current use of insulin (CMS/HCC) Tobacco user Tobacco use disorder Encounter for smoking cessation counseling Kidney stone Calculus of kidney Adrenal mass 1 cm to 4 cm in diameter ([facility]) Radiculopathy, lumbar region Thoracic or lumbosacral neuritis or radiculitis, unspecified Non-seasonal allergic rhinitis, unspecified trigger Type 2 diabetes mellitus with unspecified complications (CMS/HCC) Anxiety and depression (CMS/HCC)- Primary Morbid (severe) obesity due to excess calories ([facility]) Body mass index (BMI) 50.0-59.9, adult ([facility]) Malignant neoplasm of cervix uteri, unspecified ([facility]) Diabetic polyneuropathy associated with type 2 diabetes mellitus ([facility]) Chronic diastolic heart failure ([facility]) Chronic diastolic heart failure Primary hypertension ([facility]) Unspecified essential hypertension 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 ([facility]) Gastroesophageal reflux disease, unspecified whether esophagitis present Bilateral lower extremity edema Type 2 diabetes mellitus with complication, with long-term current use of insulin ([facility]) Tobacco user Tobacco use disorder Mixed hyperlipidemia ([facility]) Mixed hyperlipidemia Gout, unspecified cause, unspecified chronicity, unspecified site Vitamin deficiency Unspecified vitamin deficiency Gastro-esophageal reflux disease without esophagitis Edema, unspecified Edema Hyperlipidemia, unspecified ([facility]) Encounter for smoking cessation counseling Venous ulcer of right leg ([facility]) Antibiotic-induced yeast infection documented in this encounter [facility] HealthcareEvaluation note* Diagnosis Obstructive sleep apnea- Primary Obstructive sleep apnea (adult) (pediatric) Pulmonary emphysema, unspecified emphysema type ([facility]) Primary hypertension ([facility]) Unspecified essential hypertension Type 2 diabetes mellitus with complication, with long-term current use of insulin ([facility]) Anxiety and depression ([facility]) Bilateral lower extremity edema Pulmonary emphysema, unspecified emphysema type ([facility])- Primary Primary hypertension ([facility]) Unspecified essential hypertension Class 3 severe obesity with serious comorbidity and body mass index (BMI) of 50.0 to 59.9 in adult, unspecified obesity type Obstructive sleep apnea Obstructive sleep apnea (adult) (pediatric) Pulmonary hypertension ([facility]) Other chronic pulmonary heart diseases Tobacco user Tobacco use disorder Cardiomegaly Primary hypertension ([facility])- Primary Unspecified essential hypertension Gastroesophageal reflux disease, unspecified whether esophagitis present Type 2 diabetes mellitus with complication, with long-term current use of insulin ([facility]) Mixed hyperlipidemia ([facility]) Mixed hyperlipidemia Tobacco user Tobacco use disorder Encounter for screening mammogram for malignant neoplasm of breast Chronic obstructive pulmonary disease, unspecified Other specified chronic obstructive pulmonary disease Anxiety and depression ([facility]) Edema, unspecified Edema Hyperlipidemia, unspecified ([facility]) Diabetic polyneuropathy associated with type 2 diabetes mellitus ([facility]) Gout, unspecified cause, [...] depressive disorder, single episode, mild (HCC) ([facility]) Major depressive disorder, single episode, mild [...] lower extremity (CMS/HCC) PAD (peripheral artery disease) ([facility] [place]) Unspecified peripheral vascular disease Gastroesophageal reflux disease, unspecified whether esophagitis present Bilateral lower extremity edema Venous ulcer of right leg ([facility]) Type 2 diabetes mellitus with complication, with long-term current use of insulin ([facility]) Tobacco user Tobacco use disorder Encounter for smoking cessation counseling Kidney stone Calculus of kidney Adrenal mass 1 cm to 4 cm in diameter ([facility] [place]) Radiculopathy, lumbar region Thoracic or lumbosacral neuritis or radiculitis, unspecified Non-seasonal allergic rhinitis, unspecified trigger Type 2 diabetes mellitus with unspecified complications Anxiety and depression ([facility] [place])- Primary Morbid (severe) obesity due to excess calories ([facility] [place]) Body mass index (BMI) 50.0-59.9, adult ([facility] [place]) Malignant neoplasm of cervix uteri, unspecified Diabetic polyneuropathy associated with type 2 diabetes mellitus ([facility]) Chronic diastolic heart failure ([facility] [place]) Chronic diastolic heart failure Primary hypertension ([facility] [place]) Unspecified essential hypertension 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 Gastroesophageal reflux disease, unspecified whether esophagitis present Bilateral lower extremity edema Type 2 diabetes mellitus with complication, with long-term current use of insulin ([facility]) Tobacco user Tobacco use disorder Mixed hyperlipidemia ([facility] [place]) Mixed hyperlipidemia Gout, unspecified cause, unspecified chronicity, unspecified site Vitamin deficiency Unspecified vitamin deficiency Gastro-esophageal reflux disease without esophagitis Edema, unspecified Edema Hyperlipidemia, unspecified ([facility] [place]) Encounter for smoking cessation counseling Venous ulcer of right leg ([facility] [place]) Antibiotic-induced yeast infection Type 2 diabetes mellitus with hyperglycemia, with long-term current use of insulin ([facility] [place])- Primary Encounter for dietary consultation Vitamin D deficiency Primary hypertension ([facility] [place]) Unspecified essential hypertension Insulin long-term use ([facility] [place]) Encounter for long-term (current) use of insulin Hyperlipemia, mixed ([facility]) Mixed hyperlipidemia Microalbuminuria Proteinuria Class 3 severe obesity due to excess calories with serious comorbidity and body mass index (BMI) of 50.0 to 59.9 in adult documented in this encounter [facility] HealthcareEvaluation note* Diagnosis Obstructive sleep apnea- Primary Obstructive sleep apnea (adult) (pediatric) Pulmonary emphysema, unspecified emphysema type ([facility]) Primary hypertension ([facility] [place]) Unspecified essential hypertension Type 2 diabetes mellitus with complication, with long-term current use of insulin ([facility]) Anxiety and depression ([facility]) Bilateral lower extremity edema Pulmonary emphysema, unspecified emphysema type (CMS/HCC)- Primary Primary hypertension ([facility]) Unspecified essential hypertension Class 3 severe obesity with serious comorbidity and body mass index (BMI) of 50.0 to 59.9 in adult, unspecified obesity type Obstructive sleep apnea Obstructive sleep apnea (adult) (pediatric) Pulmonary hypertension (CMS/HCC) Other chronic pulmonary heart diseases Tobacco user Tobacco use disorder Cardiomegaly Primary hypertension ([facility])- Primary Unspecified essential hypertension Gastroesophageal reflux disease, unspecified whether esophagitis present Type 2 diabetes mellitus with complication, with long-term current use of insulin ([facility]) Mixed hyperlipidemia ([facility]) Mixed hyperlipidemia Tobacco user Tobacco use disorder Encounter for screening mammogram for malignant neoplasm of breast Chronic obstructive pulmonary disease, unspecified Other specified chronic obstructive pulmonary disease Anxiety and depression ([facility]) Edema, unspecified Edema Hyperlipidemia, unspecified ([facility]) Diabetic polyneuropathy associated with type 2 diabetes mellitus ([facility]) Gout, unspecified cause, unspecified chronicity, unspecified site Non-seasonal allergic rhinitis, unspecified trigger Bilateral lower extremity edema COPD exacerbation ([facility]) Obstructive chronic bronchitis with exacerbation Pulmonary emphysema, unspecified emphysema type (CMS/HCC) Venous insufficiency Unspecified venous (peripheral) insufficiency Candidiasis of breast COPD exacerbation ([facility])- Primary Obstructive chronic bronchitis with exacerbation Pulmonary hypertension ([facility]) Other chronic pulmonary heart diseases Class 3 severe obesity with serious comorbidity and body mass index (BMI) of 50.0 to 59.9 in adult, unspecified obesity type Encounter for subsequent annual wellness visit (AWV) in Medicare patient- Primary Type 2 diabetes mellitus with unspecified complications Pulmonary emphysema, unspecified emphysema type ([facility]) Moderate persistent asthma without complication ([facility]) Primary hypertension ([facility]) Unspecified essential hypertension Type 2 diabetes mellitus with complication, with long-term current use of insulin ([facility]) Class 3 severe obesity with serious comorbidity and body mass index (BMI) of 50.0 to 59.9 in adult, unspecified obesity type Tobacco user Tobacco use disorder Other headache syndrome Malignant neoplasm of cervix uteri, unspecified Other specified disorders of adrenal gland Major depressive disorder, single episode, mild (HCC) ([facility]) Major depressive disorder, single episode, mild 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 exposed Chronic respiratory failure, unspecified whether with hypoxia or hypercapnia Disorder of adrenal gland, unspecified Non-pressure chronic ulcer of other part of right lower leg limited to breakdown of skin ([facility]) Non-recurrent acute suppurative otitis media of left ear without spontaneous rupture of tympanic membrane Primary hypertension ([facility])- Primary Unspecified essential hypertension Insomnia Insomnia, unspecified Type 2 diabetes mellitus with complication, with long-term current use of insulin ([facility]) Non-seasonal allergic rhinitis, unspecified trigger Type 2 diabetes mellitus with unspecified complications Anxiety and depression ([facility]) Gastro-esophageal reflux disease without esophagitis Edema, unspecified Edema Diabetic polyneuropathy associated with type 2 diabetes mellitus ([facility]) Chronic obstructive pulmonary disease, unspecified Pulmonary emphysema, unspecified emphysema type ([facility]) Bilateral lower extremity edema Tobacco user Tobacco use disorder Hyperpigmentation of skin Other dyschromia Primary hypertension ([facility])- Primary Unspecified essential hypertension Diabetic polyneuropathy associated with type 2 diabetes mellitus ([facility]) Pulmonary emphysema, unspecified emphysema type ([facility]) Critical limb ischemia of right lower extremity ([facility]) PAD (peripheral artery disease) ([facility]) Unspecified peripheral vascular disease Gastroesophageal reflux disease, unspecified whether esophagitis present Bilateral lower extremity edema Venous ulcer of right leg ([facility]) Type 2 diabetes mellitus with complication, with long-term current use of insulin ([facility]) Tobacco user Tobacco use disorder Encounter for smoking cessation counseling Kidney stone Calculus of kidney Adrenal mass 1 cm to 4 cm in diameter ([facility]) Radiculopathy, lumbar region Thoracic or lumbosacral neuritis or radiculitis, unspecified Non-seasonal allergic rhinitis, unspecified trigger Type 2 diabetes mellitus with unspecified complications Anxiety and depression ([facility])- Primary Morbid (severe) obesity due to excess calories ([facility]) Body mass index (BMI) 50.0-59.9, adult ([facility]) Malignant neoplasm of cervix uteri, unspecified Diabetic polyneuropathy associated with type 2 diabetes mellitus ([facility]) Chronic diastolic heart failure ([facility]) Chronic diastolic heart failure Primary hypertension ([facility]) Unspecified essential hypertension 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 Gastroesophageal reflux disease, unspecified whether esophagitis present Bilateral lower extremity edema Type 2 diabetes mellitus with complication, with long-term current use of insulin ([facility]) Tobacco user Tobacco use disorder Mixed hyperlipidemia ([facility]) Mixed hyperlipidemia Gout, unspecified cause, unspecified chronicity, unspecified site Vitamin deficiency Unspecified vitamin deficiency Gastro-esophageal reflux disease without esophagitis Edema, unspecified Edema Hyperlipidemia, unspecified ([facility]) Encounter for smoking cessation counseling Venous ulcer of right leg ([facility]) Antibiotic-induced yeast infection Chronic obstructive pulmonary disease, unspecified documented in this encounter [facility] HealthcareEvaluation note* Diagnosis Obstructive sleep apnea- Primary Obstructive sleep apnea (adult) (pediatric) Pulmonary emphysema, unspecified emphysema type ([facility]) Primary hypertension ([facility]) Unspecified essential hypertension Type 2 diabetes mellitus with complication, with long-term current use of insulin ([facility]) Anxiety and depression ([facility]) Bilateral lower extremity edema Pulmonary emphysema, unspecified emphysema type ([facility])- Primary Primary hypertension ([facility]) Unspecified essential hypertension Class 3 severe obesity with serious comorbidity and body mass index (BMI) of 50.0 to 59.9 in adult, unspecified obesity type Obstructive sleep apnea Obstructive sleep apnea (adult) (pediatric) Pulmonary hypertension ([facility]) Other chronic pulmonary heart diseases Tobacco user Tobacco use disorder Cardiomegaly Primary hypertension ([facility])- Primary Unspecified essential hypertension Gastroesophageal reflux disease, unspecified whether esophagitis present Type 2 diabetes mellitus with complication, with long-term current use of insulin ([facility]) Mixed hyperlipidemia ([facility]) Mixed hyperlipidemia Tobacco user Tobacco use disorder Encounter for screening mammogram for malignant neoplasm of breast Chronic obstructive pulmonary disease, unspecified Other specified chronic obstructive pulmonary disease Anxiety and depression ([facility]) Edema, unspecified Edema Hyperlipidemia, unspecified ([facility]) Diabetic polyneuropathy associated with type 2 diabetes mellitus ([facility]) Gout, unspecified cause, unspecified chronicity, unspecified site Non-seasonal allergic rhinitis, unspecified trigger Bilateral lower extremity edema COPD exacerbation ([facility]) Obstructive chronic bronchitis with exacerbation Pulmonary emphysema, unspecified emphysema type ([facility]) Venous insufficiency Unspecified venous (peripheral) insufficiency Candidiasis of breast COPD exacerbation ([facility])- Primary Obstructive chronic bronchitis with exacerbation Pulmonary hypertension ([facility]) Other chronic pulmonary heart diseases Class 3 severe obesity with serious comorbidity and body mass index (BMI) of 50.0 to 59.9 in adult, unspecified obesity type Encounter for subsequent annual wellness visit (AWV) in Medicare patient- Primary Type 2 diabetes mellitus with unspecified complications Pulmonary emphysema, unspecified emphysema type ([facility]) Moderate persistent asthma without complication (CMS/HCC) Primary hypertension ([facility]) Unspecified essential hypertension Type 2 diabetes mellitus with complication, with long-term current use of insulin ([facility]) Class 3 severe obesity with serious comorbidity and body mass index (BMI) of 50.0 to 59.9 in adult, unspecified obesity type Tobacco user Tobacco use disorder Other headache syndrome Malignant neoplasm of cervix uteri, unspecified Other specified disorders of adrenal gland Major depressive disorder, single episode, mild (HCC) ([facility]) Major depressive disorder, single episode, mild 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 exposed Chronic respiratory failure, unspecified whether with hypoxia or hypercapnia Disorder of adrenal gland, unspecified Non-pressure chronic ulcer of other part of right lower leg limited to breakdown of skin ([facility]) Non-recurrent acute suppurative otitis media of left ear without spontaneous rupture of tympanic membrane Primary hypertension ([facility])- Primary Unspecified essential hypertension Insomnia Insomnia, unspecified Type 2 diabetes mellitus with complication, with long-term current use of insulin ([facility]) Non-seasonal allergic rhinitis, unspecified trigger Type 2 diabetes mellitus with unspecified complications Anxiety and depression ([facility]) Gastro-esophageal reflux disease without esophagitis Edema, unspecified Edema Diabetic polyneuropathy associated with type 2 diabetes mellitus ([facility]) Chronic obstructive pulmonary disease, unspecified Pulmonary emphysema, unspecified emphysema type ([facility]/HCC) Bilateral lower extremity edema Tobacco user Tobacco use disorder Hyperpigmentation of skin Other dyschromia Primary hypertension (CMS/HCC)- Primary Unspecified essential hypertension Diabetic polyneuropathy associated with type 2 diabetes mellitus ([facility]) Pulmonary emphysema, unspecified emphysema type (CMS/HCC) Critical limb ischemia of right lower extremity ([facility]) PAD (peripheral artery disease) ([facility]) Unspecified peripheral vascular disease Gastroesophageal reflux disease, unspecified whether esophagitis present Bilateral lower extremity edema Venous ulcer of right leg ([facility]) Type 2 diabetes mellitus with complication, with long-term current use of insulin ([facility]) Tobacco user Tobacco use disorder Encounter for smoking cessation counseling Kidney stone Calculus of kidney Adrenal mass 1 cm to 4 cm in diameter ([facility]) Radiculopathy, lumbar region Thoracic or lumbosacral neuritis or radiculitis, unspecified Non-seasonal allergic rhinitis, unspecified trigger Type 2 diabetes mellitus with unspecified complications Anxiety and depression ([facility])- Primary Morbid (severe) obesity due to excess calories ([facility]) Body mass index (BMI) 50.0-59.9, adult ([facility]) Malignant neoplasm of cervix uteri, unspecified Diabetic polyneuropathy associated with type 2 diabetes mellitus ([facility]) Chronic diastolic heart failure ([facility]) Chronic diastolic heart failure Primary hypertension ([facility]) Unspecified essential hypertension 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 Gastroesophageal reflux disease, unspecified whether esophagitis present Bilateral lower extremity edema Type 2 diabetes mellitus with complication, with long-term current use of insulin ([facility]) Tobacco user Tobacco use disorder Mixed hyperlipidemia ([facility]) Mixed hyperlipidemia Gout, unspecified cause, unspecified chronicity, unspecified site Vitamin deficiency Unspecified vitamin deficiency Gastro-esophageal reflux disease without esophagitis Edema, unspecified Edema Hyperlipidemia, unspecified ([facility]) Encounter for smoking cessation counseling Venous ulcer of right leg ([facility]) Antibiotic-induced yeast infection Primary hypertension ([facility] [place] Primary Unspecified essential hypertension Diabetic polyneuropathy associated with type 2 diabetes mellitus ([facility]) Chronic diastolic heart failure ([facility]) Chronic diastolic heart failure Bilateral lower extremity edema Morbid (severe) obesity due to excess calories ([facility]) Type 2 diabetes mellitus with complication, with long-term current use of insulin ([facility]) Anxiety and depression ([facility]) Cigarette nicotine dependence without complication Encounter for screening mammogram for malignant neoplasm of breast Insomnia Insomnia, unspecified Non-seasonal allergic rhinitis, unspecified trigger Type 2 diabetes mellitus with unspecified complications Vitamin D deficiency, unspecified Gastro-esophageal reflux disease without esophagitis PAD (peripheral artery disease) ([facility]) Unspecified peripheral vascular disease Gastroesophageal reflux disease, unspecified whether esophagitis present Venous ulcer of right leg ([facility]) documented in this encounter [facility] HealthcareEvaluation note* Diagnosis Obstructive sleep apnea- Primary Obstructive sleep apnea (adult) (pediatric) Pulmonary emphysema, unspecified emphysema type ([facility]) Primary hypertension Unspecified essential hypertension Type 2 diabetes mellitus with complication, with long-term current use of insulin (HCC) Anxiety and depression Bilateral lower extremity edema Pulmonary emphysema, unspecified emphysema type (HCC)- Primary Primary hypertension Unspecified essential hypertension Class 3 severe obesity with serious comorbidity and body mass index (BMI) of 50.0 to 59.9 in adult, unspecified obesity type ([facility]) Obstructive sleep apnea Obstructive [...] to 59.9 in adult, unspecified obesity type ([facility] [place] [facility]) Encounter for subsequent annual [...] to 59.9 in adult, unspecified obesity type ([facility]) Tobacco user Tobacco use [...] leg limited to breakdown of skin ([facility]) Non-recurrent acute suppurative otitis media of left ear without spontaneous rupture of tympanic membrane Primary hypertension- Primary Unspecified essential hypertension Insomnia Insomnia, unspecified Type 2 diabetes mellitus with complication, with long-term current use of insulin ([facility]) Non-seasonal allergic rhinitis, unspecified trigger Type 2 diabetes mellitus with unspecified complications ([facility]) Anxiety and depression Gastro-esophageal reflux disease without esophagitis Edema, unspecified Edema Diabetic polyneuropathy associated with type 2 diabetes mellitus ([facility]) Chronic obstructive pulmonary disease, unspecified ([facility]) Pulmonary emphysema, unspecified emphysema type ([facility]) Bilateral lower extremity edema Tobacco user Tobacco use disorder Hyperpigmentation of skin Other dyschromia Primary hypertension- Primary Unspecified essential hypertension Diabetic polyneuropathy associated with type 2 diabetes mellitus ([facility]) Pulmonary emphysema, unspecified emphysema type ([facility]) Critical limb ischemia of right lower extremity ([facility]) PAD (peripheral artery disease) Unspecified peripheral vascular disease Gastroesophageal reflux disease, unspecified whether esophagitis present Bilateral lower extremity edema Venous ulcer of right leg ([facility]) Type 2 diabetes mellitus with complication, with long-term current use of insulin ([facility]) Tobacco user Tobacco use disorder Encounter for smoking cessation counseling Kidney stone Calculus of kidney Adrenal mass 1 cm to 4 cm in diameter ([facility]) Radiculopathy, lumbar region Thoracic or lumbosacral neuritis or radiculitis, unspecified Non-seasonal allergic rhinitis, unspecified trigger Type 2 diabetes mellitus with unspecified complications ([facility]) Anxiety and depression- Primary Morbid (severe) obesity due to excess calories ([facility] [place]) Body mass index (BMI) 50.0-59.9, adult ([facility] [place]) Malignant neoplasm of cervix uteri, unspecified ([facility]) Diabetic polyneuropathy associated with type 2 diabetes mellitus ([facility]) Chronic diastolic heart failure (HCC) Chronic diastolic heart failure Primary hypertension Unspecified essential hypertension 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 ([facility]) Gastroesophageal reflux disease, unspecified whether esophagitis present Bilateral lower extremity edema Type 2 diabetes mellitus with complication, with long-term current use of insulin ([facility]) Tobacco user Tobacco use disorder Mixed [...] Morbid (severe) obesity due to excess calories ([facility]) Type 2 diabetes mellitus [...] of left lower extremity- Primary COPD exacerbation ([facility]) Obstructive chronic bronchitis with exacerbation Primary hypertension Unspecified essential hypertension Pulmonary hypertension (HCC) Other chronic pulmonary heart diseases Morbid (severe) obesity due to excess calories ([facility]) Type 2 diabetes mellitus with complication, with long-term current use of insulin ([facility]) Anxiety and depression Fever, unspecified fever cause Hyperlipidemia, unspecified Tobacco user Tobacco use disorder Encounter for smoking cessation counseling documented in this encounter [facility] HealthcareEvaluation note* Diagnosis Obstructive sleep apnea- Primary Obstructive sleep apnea (adult) (pediatric) Pulmonary emphysema, unspecified emphysema type ([facility]) Primary hypertension ([facility]) Unspecified essential hypertension Type 2 diabetes mellitus with complication, with long-term current use of insulin ([facility]) Anxiety and depression ([facility]) Bilateral lower extremity edema Pulmonary emphysema, unspecified emphysema type ([facility])- Primary Primary hypertension ([facility]) Unspecified essential hypertension Class 3 severe obesity with serious comorbidity and body mass index (BMI) of 50.0 to 59.9 in adult, unspecified obesity type Obstructive sleep apnea Obstructive sleep apnea (adult) (pediatric) Pulmonary hypertension ([facility]) Other chronic pulmonary heart diseases Tobacco user Tobacco use disorder Cardiomegaly Primary hypertension ([facility])- Primary Unspecified essential hypertension Gastroesophageal reflux disease, unspecified whether esophagitis present Type 2 diabetes mellitus with complication, with long-term current use of insulin ([facility]) Mixed hyperlipidemia ([facility]) Mixed hyperlipidemia Tobacco user Tobacco use disorder Encounter for screening mammogram for malignant neoplasm of breast Chronic obstructive pulmonary disease, unspecified Other specified chronic obstructive pulmonary disease Anxiety and depression ([facility]) Edema, unspecified Edema Hyperlipidemia, unspecified ([facility]) Diabetic polyneuropathy associated with type 2 diabetes mellitus ([facility]) Gout, unspecified cause, unspecified chronicity, unspecified site Non-seasonal allergic rhinitis, unspecified trigger Bilateral lower extremity edema COPD exacerbation ([facility]) Obstructive chronic bronchitis with exacerbation Pulmonary emphysema, unspecified emphysema type (CMS/HCC) Venous insufficiency Unspecified venous (peripheral) insufficiency Candidiasis of breast COPD exacerbation (CMS/HCC)- Primary Obstructive chronic bronchitis with exacerbation Pulmonary hypertension ([facility]) Other chronic pulmonary heart diseases Class 3 severe obesity with serious comorbidity and body mass index (BMI) of 50.0 to 59.9 in adult, unspecified obesity type Encounter for subsequent annual wellness visit (AWV) in Medicare patient- Primary Type 2 diabetes mellitus with unspecified complications Pulmonary emphysema, unspecified emphysema type ([facility]) Moderate persistent asthma without complication ([facility]) Primary hypertension ([facility]) Unspecified essential hypertension Type 2 diabetes mellitus with complication, with long-term current use of insulin ([facility]) Class 3 severe obesity with serious comorbidity and body mass index (BMI) of 50.0 to 59.9 in adult, unspecified obesity type Tobacco user Tobacco use disorder Other headache syndrome Malignant neoplasm of cervix uteri, unspecified Other specified disorders of adrenal gland Major depressive disorder, single episode, mild (HCC) ([facility]) Major depressive disorder, single episode, mild 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 exposed Chronic respiratory failure, unspecified whether with hypoxia or hypercapnia Disorder of adrenal gland, unspecified Non-pressure chronic ulcer of other part of right lower leg limited to breakdown of skin ([facility]) Non-recurrent acute suppurative otitis media of left ear without spontaneous rupture of tympanic membrane Primary hypertension ([facility])- Primary Unspecified essential hypertension Insomnia Insomnia, unspecified Type 2 diabetes mellitus with complication, with long-term current use of insulin ([facility]) Non-seasonal allergic rhinitis, unspecified trigger Type 2 diabetes mellitus with unspecified complications Anxiety and depression ([facility]) Gastro-esophageal reflux disease without esophagitis Edema, unspecified Edema Diabetic polyneuropathy associated with type 2 diabetes mellitus ([facility]) Chronic obstructive pulmonary disease, unspecified Pulmonary emphysema, unspecified emphysema type (CMS/HCC) Bilateral lower extremity edema Tobacco user Tobacco use disorder Hyperpigmentation of skin Other dyschromia Primary hypertension ([facility])- Primary Unspecified essential hypertension Diabetic polyneuropathy associated with type 2 diabetes mellitus ([facility]) Pulmonary emphysema, unspecified emphysema type ([facility]) Critical limb ischemia of right lower extremity ([facility]) PAD (peripheral artery disease) ([facility]) Unspecified peripheral vascular disease Gastroesophageal reflux disease, unspecified whether esophagitis present Bilateral lower extremity edema Venous ulcer of right leg ([facility]) Type 2 diabetes mellitus with complication, with long-term current use of insulin ([facility]) Tobacco user Tobacco use disorder Encounter for smoking cessation counseling Kidney stone Calculus of kidney Adrenal mass 1 cm to 4 cm in diameter ([facility]) Radiculopathy, lumbar region Thoracic or lumbosacral neuritis or radiculitis, unspecified Non-seasonal allergic rhinitis, unspecified trigger Type 2 diabetes mellitus with unspecified complications Anxiety and depression ([facility])- Primary Morbid (severe) obesity due to excess calories ([facility]) Body mass index (BMI) 50.0-59.9, adult ([facility]) Malignant neoplasm of cervix uteri, unspecified Diabetic polyneuropathy associated with type 2 diabetes mellitus ([facility]) Chronic diastolic heart failure ([facility]) Chronic diastolic heart failure Primary hypertension ([facility] [place]) Unspecified essential hypertension 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 Gastroesophageal reflux disease, unspecified whether esophagitis present Bilateral lower extremity edema Type 2 diabetes mellitus with complication, with long-term current use of insulin ([facility]) Tobacco user Tobacco use disorder Mixed hyperlipidemia ([facility]) Mixed hyperlipidemia Gout, unspecified cause, unspecified chronicity, unspecified site Vitamin deficiency Unspecified vitamin deficiency Gastro-esophageal reflux disease without esophagitis Edema, unspecified Edema Hyperlipidemia, unspecified ([facility]) Encounter for smoking cessation counseling Venous ulcer of right leg ([facility]) Antibiotic-induced yeast infection Primary hypertension ([facility])- Primary Unspecified essential hypertension Diabetic polyneuropathy associated with type 2 diabetes mellitus ([facility] Chronic diastolic heart failure ([facility]) Chronic diastolic heart failure Bilateral lower extremity edema Morbid (severe) obesity due to excess calories ([facility]) Type 2 diabetes mellitus with complication, with long-term current use of insulin ([facility]) Anxiety and depression ([facility] [place] Cigarette nicotine dependence without complication Encounter for screening mammogram for malignant neoplasm of breast Insomnia Insomnia, unspecified Non-seasonal allergic rhinitis, unspecified trigger Type 2 diabetes mellitus with unspecified complications Vitamin D deficiency, unspecified Gastro-esophageal reflux disease without esophagitis PAD (peripheral artery disease) ([facility]) Unspecified peripheral vascular disease Gastroesophageal reflux disease, unspecified whether esophagitis present Venous ulcer of right leg ([facility]) Cellulitis of left lower extremity- Primary COPD exacerbation ([facility]) Obstructive chronic bronchitis with exacerbation Primary hypertension ([facility]) Unspecified essential hypertension Pulmonary hypertension ([facility]) Other chronic pulmonary heart diseases Morbid (severe) obesity due to excess calories ([facility]) Type 2 diabetes mellitus with complication, with long-term current use of insulin ([facility]) Anxiety and depression ([facility]) Fever, unspecified fever cause documented in this encounter [facility]* Diagnosis Obstructive sleep apnea- Primary Obstructive sleep apnea (adult) (pediatric) Pulmonary emphysema, unspecified emphysema type (HCC) Primary hypertension Unspecified essential hypertension Type 2 diabetes mellitus with complication, with long-term current use of insulin ([facility]) Anxiety and depression Bilateral lower extremity edema Pulmonary emphysema, unspecified emphysema type (HCC)- Primary Primary hypertension Unspecified essential hypertension Class 3 severe obesity with serious comorbidity and body mass index (BMI) of 50.0 to 59.9 in adult, unspecified obesity type ([facility]) Obstructive sleep apnea Obstructive [...] to 59.9 in adult, unspecified obesity type ([facility] [place]) Encounter for subsequent annual wellness visit (AWV) in Medicare patient- Primary Type 2 diabetes mellitus with unspecified complications (HCC) Pulmonary emphysema, unspecified emphysema type ([facility]) Moderate persistent asthma without complication (HCC) Primary hypertension Unspecified essential hypertension Type 2 diabetes mellitus with complication, with long-term current use of insulin ([facility]) Class 3 severe obesity with serious comorbidity and body mass index (BMI) of 50.0 to 59.9 in adult, unspecified obesity type ([facility] [place]) Tobacco user Tobacco use disorder Other headache syndrome Malignant neoplasm of cervix uteri, unspecified ([facility]) Other specified disorders of adrenal gland ([facility]) Major depressive disorder, single episode, mild Major depressive disorder, single episode, mild 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 exposed ([facility]) Chronic respiratory failure, unspecified whether with hypoxia or hypercapnia ([facility]) Disorder of adrenal gland, unspecified ([facility]) Non-pressure chronic ulcer of other part of right lower leg limited to breakdown of skin ([facility]) Non-recurrent acute suppurative otitis media of left ear without spontaneous rupture of tympanic membrane Primary hypertension- Primary Unspecified essential hypertension Insomnia Insomnia, unspecified Type 2 diabetes mellitus with complication, with long-term current use of insulin ([facility]) Non-seasonal allergic rhinitis, unspecified trigger Type 2 diabetes mellitus with unspecified complications ([facility]) Anxiety and depression Gastro-esophageal reflux disease without esophagitis Edema, unspecified Edema Diabetic polyneuropathy associated with type 2 diabetes mellitus ([facility]) Chronic obstructive pulmonary disease, unspecified (HCC) Pulmonary emphysema, unspecified emphysema type ([facility]) Bilateral lower extremity edema Tobacco user Tobacco use disorder Hyperpigmentation of skin Other dyschromia Primary hypertension- Primary Unspecified essential hypertension Diabetic polyneuropathy associated with type 2 diabetes mellitus ([facility]) Pulmonary emphysema, unspecified emphysema type ([facility]) Critical limb ischemia of right lower extremity ([facility]) PAD (peripheral artery disease) Unspecified peripheral vascular disease Gastroesophageal reflux disease, unspecified whether esophagitis present Bilateral lower extremity edema Venous ulcer of right leg ([facility]) Type 2 diabetes mellitus with complication, with long-term current use of insulin ([facility]) Tobacco user Tobacco use disorder Encounter for smoking cessation counseling Kidney stone Calculus of kidney Adrenal mass 1 cm to 4 cm in diameter ([facility]) Radiculopathy, lumbar region Thoracic or lumbosacral neuritis or radiculitis, unspecified Non-seasonal allergic rhinitis, unspecified trigger Type 2 diabetes mellitus with unspecified complications ([facility]) Anxiety and depression- Primary Morbid (severe) obesity due to excess calories ([facility]) Body mass index (BMI) 50.0-59.9, adult ([facility]) Malignant neoplasm of cervix uteri, unspecified (HCC) Diabetic polyneuropathy associated with type 2 diabetes mellitus (HCC) Chronic diastolic heart failure (HCC) Chronic diastolic heart failure Primary hypertension Unspecified essential hypertension 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 ([facility]) Gastroesophageal reflux disease, unspecified whether esophagitis present Bilateral lower extremity edema Type 2 diabetes mellitus with complication, with long-term current use of insulin ([facility]) Tobacco user Tobacco use disorder Mixed [...] Morbid (severe) obesity due to excess calories ([facility]) Type 2 diabetes mellitus with complication, with long-term current use of insulin (HCC) Anxiety and depression Cigarette nicotine dependence without complication Encounter for screening mammogram for malignant neoplasm of breast Insomnia Insomnia, unspecified Non-seasonal allergic rhinitis, unspecified trigger Type 2 diabetes mellitus with unspecified complications ([facility]) Vitamin D deficiency, unspecified Gastro-esophageal reflux [...] Morbid (severe) obesity due to excess calories ([facility]) Type 2 diabetes mellitus with complication, with long-term current use of insulin ([facility]) Anxiety and depression Fever, unspecified fever [...] Morbid (severe) obesity due to excess calories ([facility]) Type 2 diabetes mellitus with hyperglycemia, with long-term current use of insulin ([facility]) documented in this encounter [facility]* Diagnosis Obstructive sleep [...] to 59.9 in adult, unspecified obesity type ([facility]) Obstructive sleep apnea Obstructive [...] associated with type 2 diabetes mellitus ([facility]) Gout, unspecified cause, unspecified [...] to 59.9 in adult, unspecified obesity type ([facility] [place]) Encounter for subsequent annual wellness visit (AWV) in Medicare patient- Primary Type 2 diabetes mellitus with unspecified complications ([facility]) Pulmonary emphysema, unspecified emphysema type ([facility]) Moderate persistent asthma without complication (HCC) Primary hypertension Unspecified essential hypertension Type 2 diabetes mellitus with complication, with long-term current use of insulin ([facility]) Class 3 severe obesity with serious comorbidity and body mass index (BMI) of 50.0 to 59.9 in adult, unspecified obesity type ([facility] [place]) Tobacco user Tobacco use disorder Other headache syndrome Malignant neoplasm of cervix uteri, unspecified ([facility]) Other specified disorders of adrenal gland ([facility]) Major depressive disorder, single episode, mild Major depressive disorder, single episode, mild 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 exposed ([facility]) Chronic respiratory failure, unspecified whether with hypoxia or hypercapnia ([facility]) Disorder of adrenal gland, unspecified ([facility]) Non-pressure chronic ulcer of other part of right lower leg limited to breakdown of skin ([facility]) Non-recurrent acute suppurative otitis media of left ear without spontaneous rupture of tympanic membrane Primary hypertension- Primary Unspecified essential hypertension Insomnia Insomnia, unspecified Type 2 diabetes mellitus with complication, with long-term current use of insulin ([facility]) Non-seasonal allergic rhinitis, unspecified trigger Type 2 diabetes mellitus with unspecified complications ([facility]) Anxiety and depression Gastro-esophageal reflux disease without esophagitis Edema, unspecified Edema Diabetic polyneuropathy associated with type 2 diabetes mellitus ([facility]) Chronic obstructive pulmonary disease, unspecified ([facility]) Pulmonary emphysema, unspecified emphysema type ([facility]) Bilateral lower extremity edema Tobacco user Tobacco use disorder Hyperpigmentation of skin Other dyschromia Primary hypertension- Primary Unspecified essential hypertension Diabetic polyneuropathy associated with type 2 diabetes mellitus ([facility]) Pulmonary emphysema, unspecified emphysema type ([facility]) Critical limb ischemia of right lower extremity ([facility]) PAD (peripheral artery disease) Unspecified peripheral vascular disease Gastroesophageal reflux disease, unspecified whether esophagitis present Bilateral lower extremity edema Venous ulcer of right leg ([facility]) Type 2 diabetes mellitus with complication, with long-term current use of insulin ([facility]) Tobacco user Tobacco use disorder Encounter for smoking cessation counseling Kidney stone Calculus of kidney Adrenal mass 1 cm to 4 cm in diameter ([facility]) Radiculopathy, lumbar region Thoracic or lumbosacral neuritis or radiculitis, unspecified Non-seasonal allergic rhinitis, unspecified trigger Type 2 diabetes mellitus with unspecified complications ([facility]) Anxiety and depression- Primary Morbid (severe) obesity due to excess calories ([facility]) Body mass index (BMI) 50.0-59.9, adult ([facility]) Malignant neoplasm of cervix uteri, unspecified (HCC) Diabetic polyneuropathy associated with type 2 diabetes mellitus ([facility]) Chronic diastolic heart failure (HCC) Chronic diastolic heart failure Primary hypertension Unspecified essential hypertension 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 ([facility]) Gastroesophageal reflux disease, unspecified whether esophagitis present Bilateral lower extremity edema Type 2 diabetes mellitus with complication, with long-term current use of insulin ([facility]) Tobacco user Tobacco use disorder Mixed hyperlipidemia Mixed hyperlipidemia Gout, unspecified cause, unspecified chronicity, unspecified site Vitamin deficiency Unspecified vitamin deficiency Gastro-esophageal reflux disease without esophagitis Edema, unspecified Edema Hyperlipidemia, unspecified Encounter for smoking cessation counseling Venous ulcer of right leg ([facility]) Antibiotic-induced yeast infection Primary hypertension- Primary Unspecified essential hypertension Diabetic polyneuropathy associated with type 2 diabetes mellitus (HCC) Chronic diastolic heart failure (HCC) Chronic diastolic heart failure Bilateral lower extremity edema Morbid (severe) obesity due to excess calories ([facility]) Type 2 diabetes mellitus with complication, with long-term current use of insulin ([facility]) Anxiety and depression Cigarette nicotine dependence without complication Encounter for screening mammogram for malignant neoplasm of breast Insomnia Insomnia, unspecified Non-seasonal allergic rhinitis, unspecified trigger Type 2 diabetes mellitus with unspecified complications ([facility]) Vitamin D deficiency, unspecified Gastro-esophageal reflux disease without esophagitis PAD (peripheral artery disease) Unspecified peripheral vascular disease Gastroesophageal reflux disease, unspecified whether esophagitis present Venous ulcer of right leg (HCC) Cellulitis of left lower extremity- Primary COPD exacerbation ([facility]) Obstructive chronic bronchitis with exacerbation Primary hypertension Unspecified essential hypertension Pulmonary hypertension (HCC) Other chronic pulmonary heart diseases Morbid (severe) obesity due to excess calories ([facility]) Type 2 diabetes mellitus with complication, with long-term current use of insulin ([facility]) Anxiety and depression Fever, unspecified fever [...] Morbid (severe) obesity due to excess calories ([facility] [place]) Encounter for dietary consultation- Primary Type 2 diabetes mellitus with hyperglycemia, with long-term current use of insulin ([facility]) Vitamin D deficiency Primary hypertension Unspecified essential hypertension Insulin long-term use ([facility]) Encounter for long-term (current) use of insulin Hyperlipemia, mixed Mixed hyperlipidemia Microalbuminuria Proteinuria Class 3 severe obesity due to excess calories with serious comorbidity and body mass index (BMI) of 50.0 to 59.9 in adult ([facility] [place]) documented in this encounter [facility] note* Diagnosis Obstructive sleep apnea- Primary Obstructive sleep apnea (adult) (pediatric) Pulmonary emphysema, unspecified emphysema type (HCC) Primary hypertension Unspecified essential hypertension Type 2 diabetes mellitus with complication, with long-term current use of insulin ([facility]) Anxiety and depression Bilateral lower extremity edema Pulmonary emphysema, unspecified emphysema type (HCC)- Primary Primary hypertension Unspecified essential hypertension Class 3 severe obesity with serious comorbidity and body mass index (BMI) of 50.0 to 59.9 in adult, unspecified obesity type ([facility] [place]) Obstructive sleep apnea Obstructive sleep apnea (adult) (pediatric) Pulmonary hypertension (HCC) Other chronic pulmonary heart diseases Tobacco user Tobacco use disorder Cardiomegaly Primary hypertension- Primary Unspecified essential hypertension Gastroesophageal reflux disease, unspecified whether esophagitis present Type 2 diabetes mellitus with complication, with long-term current use of insulin ([facility]) Mixed hyperlipidemia Mixed hyperlipidemia Tobacco user Tobacco use disorder Encounter for screening mammogram for malignant neoplasm of breast Chronic obstructive pulmonary disease, unspecified (HCC) Other specified chronic obstructive pulmonary disease (HCC) Anxiety and depression Edema, unspecified Edema Hyperlipidemia, unspecified Diabetic polyneuropathy associated with type 2 diabetes mellitus ([facility]) Gout, unspecified cause, unspecified [...] to 59.9 in adult, unspecified obesity type ([facility] [place]) Encounter for subsequent annual wellness visit (AWV) in Medicare patient- Primary Type 2 diabetes mellitus with unspecified complications (HCC) Pulmonary emphysema, unspecified emphysema type ([facility]) Moderate persistent asthma without complication (HCC) Primary hypertension Unspecified essential hypertension Type 2 diabetes mellitus with complication, with long-term current use of insulin ([facility]) Class 3 severe obesity with serious comorbidity and body mass index (BMI) of 50.0 to 59.9 in adult, unspecified obesity type ([facility] [place]) Tobacco user Tobacco use disorder Other headache syndrome Malignant neoplasm of cervix uteri, unspecified (HCC) Other specified disorders of adrenal gland (HCC) Major depressive disorder, single episode, mild Major depressive disorder, single episode, mild 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 exposed ([facility]) Chronic respiratory failure, unspecified [...] associated with type 2 diabetes mellitus ([facility]) Pulmonary emphysema, unspecified emphysema type (HCC) Critical limb ischemia of right lower extremity ([facility] [place]) PAD (peripheral artery disease) Unspecified peripheral vascular disease Gastroesophageal reflux disease, unspecified whether esophagitis present Bilateral lower extremity edema Venous ulcer of right leg ([facility]) Type 2 diabetes mellitus with complication, with long-term current use of insulin ([facility]) Tobacco user Tobacco use disorder Encounter for smoking cessation counseling Kidney stone Calculus of kidney Adrenal mass 1 cm to 4 cm in diameter ([facility]) Radiculopathy, lumbar region Thoracic or lumbosacral neuritis or radiculitis, unspecified Non-seasonal allergic rhinitis, unspecified trigger Type 2 diabetes mellitus with unspecified complications ([facility]) Anxiety and depression- Primary Morbid (severe) obesity due to excess calories ([facility] [place]) Body mass index (BMI) 50.0-59.9, adult ([facility] [place]) Malignant neoplasm of cervix uteri, unspecified ([facility]) Diabetic polyneuropathy associated with type 2 diabetes mellitus ([facility]) Chronic diastolic heart failure ([facility]) Chronic diastolic heart failure Primary hypertension Unspecified essential hypertension 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 ([facility]) Gastroesophageal reflux disease, unspecified whether esophagitis present Bilateral lower extremity edema Type 2 diabetes mellitus with complication, with long-term current use of insulin ([facility]) Tobacco user Tobacco use disorder Mixed hyperlipidemia Mixed hyperlipidemia Gout, unspecified cause, unspecified chronicity, unspecified site Vitamin deficiency Unspecified vitamin deficiency Gastro-esophageal reflux disease without esophagitis Edema, unspecified Edema Hyperlipidemia, unspecified Encounter for smoking cessation counseling Venous ulcer of right leg ([facility]) Antibiotic-induced yeast infection Primary hypertension- Primary Unspecified essential hypertension Diabetic polyneuropathy associated with type 2 diabetes mellitus ([facility]) Chronic diastolic heart failure (HCC) Chronic diastolic heart failure Bilateral lower extremity edema Morbid (severe) obesity due to excess calories ([facility] [place]) Type 2 diabetes mellitus with complication, with long-term current use of insulin ([facility]) Anxiety and depression Cigarette nicotine dependence without complication Encounter for screening mammogram for malignant neoplasm of breast Insomnia Insomnia, unspecified Non-seasonal allergic rhinitis, unspecified trigger Type 2 diabetes mellitus with unspecified complications ([facility]) Vitamin D deficiency, unspecified Gastro-esophageal reflux disease without esophagitis PAD (peripheral artery disease) Unspecified peripheral vascular disease Gastroesophageal reflux disease, unspecified whether esophagitis present Venous ulcer of right leg ([facility]) Cellulitis of left lower extremity- Primary COPD exacerbation ([facility]) Obstructive chronic bronchitis with exacerbation Primary hypertension Unspecified essential hypertension Pulmonary hypertension (HCC) Other chronic pulmonary heart diseases Morbid (severe) obesity due to excess calories ([facility]) Type 2 diabetes mellitus with complication, [...] Morbid (severe) obesity due to excess calories ([facility]) Tobacco user Tobacco use [...] History sepsis 2010 Hospitalization History SEE ABOVE [employer] Other Hospital course Narrative No data available for this section [facility] Wil[facility] progress note No data available for this section [facility] [employer] reason for referral (narrative) , Referral to Dr. 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 Advance Directives and Living Will Power of Weave Room Supervisor Summary Purpose Family History No Family History Records FoundNo Family History Records FoundNo Family History Records FoundNo Family History Records Found No data available for this section No Family History Records FoundNo Family History Records FoundNo Family History Records Found Additional Source Comments INFORMATION SOURCE (unrecogn ized section and content) DATE CREATED AUTHOR 10/30/2019 [facility] DATE CREATED AUTHOR AUTHOR'S ORGANIZ ATION 09/15/2020 [facility] DATE CREATED AUTHOR AUTHOR'S ORGANIZ ATION 12/19/2022 [facility] DATE CREATED AUTHOR AUTHOR'S ORGANIZ ATION [facility]/03/2024 [facility] DATE CREATED AUTHOR AUTHOR'S ORGANIZ ATION 01/30/2025 [facility] DATE CREATED AUTHOR AUTHOR'S ORGANIZ ATION 02/06/2025 [facility] DATE CREATED AUTHOR AUTHOR'S ORGANIZ ATION 03/25/2025 [facility] Care Team (unrecognized sect ion and content) Sociology Professor Relationship Specialty Start Date End Date Ty Amin MD PCP - General Family Medicine 01/05/23 Sociology Professor Relationship Specialty Start Date End Date Ty Amin MD PCP - General Family Medicine 01/05/23 Sociology Professor Relationship Specialty Start Date End Date Ty Amin MD [address] [place] [address] PCP - General Family Medicine 09/20/23 Mckayla Blas NP [address] [place] [address] PCP - [facility] 09/07/23 09/05/90 Mckayla Blas NP [address] [place] [address] Nurse Practitioner Family Medicine 09/20/23 Sociology Professor Relationship Specialty Start Date End Date Ty Amin MD [address] [place] [address] PCP - General Family Medicine 09/20/23 Mckayla Blas NP [address] [place] [address] PCP - [facility] 09/07/23 09/05/90 Mckayla Blas NP [address] [place] [address] Nurse Practitioner Family Medicine 09/20/23 Sociology Professor Relationship Specialty Start Date End Date Ty Amin MD [address] [place] [address] PCP - General Family Medicine 09/20/23 Mckayla Blas NP [address] [place] [address] PCP [facility] 09/07/23 09/05/90 Mckayla Blas NP [address] [place] [address] Nurse Practitioner Family Medicine 09/20/23 Sociology Professor Relationship Specialty Start Date End Date Ty Amin MD [address] [place] [address] PCP - General Family Medicine 09/20/23 Mckayla Blas NP [address] [place] [address] PCP - [facility] 09/07/23 09/05/90 Mckayla Blas NP [address] [place] [address] Nurse Practitioner Family Medicine 09/20/23 Sociology Professor Relationship Specialty Start Date End Date Ty Amin MD [address] [place] [address] PCP - General Family Medicine 09/20/23 Mckayla Blas NP [address] [place] [address] PCP - [facility] 09/07/23 09/05/90 Mckayla Blas NP [address] [place] [address] Nurse Practitioner Family Medicine 09/20/23 Sociology Professor Relationship Specialty Start Date End Date Ty Amin MD [address] [place] [address] PCP - General Family Medicine 09/20/23 Mckayla Blas NP [address] [place] [address] PCP [facility] 09/07/23 09/05/90 Mckayla Blas NP [address] [place] [address] Nurse Practitioner Family Medicine 09/20/23 Sociology Professor Relationship Specialty Start Date End Date Ty Amin MD [address] [place] [address] PCP - General Family Medicine 09/20/23 Mckayla Blas NP [address] [place] [address] PCP - [facility] 09/07/23 09/05/90 Mckayla Blas NP [address] [place] [address] Nurse Practitioner Family Medicine 09/20/23 Sociology Professor Relationship Specialty Start Date End Date Ty Amin MD [address] [place] [address] PCP - General Family Medicine 09/20/23 Mckayla Blas NP [address] [place] [address] PCP [facility] 09/07/23 09/05/90 Mckayla Blas NP [address] [place] [address] Nurse Practitioner Family Medicine 09/20/23 Sociology Professor Relationship Specialty Start Date End Date Ty Amin MD [address] [place] [address] PCP - General Family Medicine 09/20/23 Mckayla Blas NP [address] [place] [address] PCP - [facility] 09/07/23 09/05/90 Mckayla Blas NP [address] [place] [address] Nurse Practitioner Family Medicine 09/20/23 Sociology Professor Relationship Specialty Start Date End Date Ty Amin MD [address] [place] [address] PCP - General Family Medicine 09/20/23 Mckayla Blas NP [address] [place] [address] PCP - [facility] 09/07/23 09/05/90 Mckayla Blas NP [address] [place] [address] Nurse Practitioner Family Medicine 09/20/23 Sociology Professor Relationship Specialty Start Date End Date Ty Amin MD [address] [place] [address] PCP - General Family Medicine 09/20/23 Mckayla Blas NP [address] [place] [address] PCP [facility] 09/07/23 09/05/90 Mckayla Blas NP [address] [place] [address] Nurse Practitioner Family Medicine 09/20/23 Sociology Professor Relationship Specialty Start Date End Date Ty Amin MD [address] [place] [address] PCP - General Family Medicine 09/20/23 Mckayla Blas NP [address] [place] [address] PCP - [facility] 09/07/23 09/05/90 Mckayla Blas NP [address] [place] [address] Nurse Practitioner Family Medicine 09/20/23 Sociology Professor Relationship Specialty Start Date End Date Ty Amin MD [address] [place] [address] PCP - General Family Medicine 09/20/23 Mckayla Blas NP [address] [place] [address] PCP [facility] 09/07/23 09/05/90 Mckayla Blas NP [address] [place] [address] Nurse Practitioner Family Medicine 09/20/23 Sociology Professor Relationship Specialty Start Date End Date Ty Amin MD [address] [place] [address] PCP - General Family Medicine 09/20/23 Mckayla Blas NP [address] [place] [address] PCP - [facility] 09/07/23 09/05/90 Mckayla Blas NP [address] [place] [address] Nurse Practitioner Family Medicine 09/20/23 Sociology Professor Relationship Specialty Start Date End Date Ty Amin MD [address] [place] [address] PCP - General Family Medicine 09/20/23 Mckayla Blas NP [address] [place] [address] PCP - [facility] 09/07/23 09/05/90 Mckayla Blas NP [address] [place] [address] Nurse Practitioner Family Medicine 09/20/23 Sociology Professor Relationship Specialty Start Date End Date Ty Amin MD [address] [place] [address] PCP - General Family Medicine 09/20/23 Mckayla Blas NP [address] [place] [address] PCP [facility] 09/07/23 09/05/90 Mckayla Blas NP [address] [place] [address] Nurse Practitioner Family Medicine 09/20/23 Sociology Professor Relationship Specialty Start Date End Date Ty Amin MD [address] [place] [address] PCP - General Family Medicine 09/20/23 Mckayla Blas NP [address] [place] [address] PCP - [facility] 09/07/23 09/05/90 Mckayla Blas NP [address] [place] [address] Nurse Practitioner Family Medicine 09/20/23 Sociology Professor Relationship Specialty Start Date End Date Ty Amin MD [address] [place] [address] PCP - General Family Medicine 09/20/23 Mckayla Blas NP [address] [place] [address] PCP [facility] 09/07/23 09/05/90 Mckayla Blas NP [address] [place] [address] Nurse Practitioner Family Medicine 09/20/23 Sociology Professor Relationship Specialty Start Date End Date Ty Amin MD [address] [place] [address] PCP - General Family Medicine 09/20/23 Mckayla Blas NP [address] [place] [address] PCP - [facility] 09/07/23 09/05/90 Mckayla Blas NP [address] [place] [address] Nurse Practitioner Family Medicine 09/20/23 Sociology Professor Relationship Specialty Start Date End Date Ty Amin MD [address] [place] [address] PCP - General Family Medicine 09/20/23 Mckayla Blas NP [address] [place] [address] [facility] 09/07/23 09/05/90 Mckayla Blas NP [address] [place] [address] Nurse Practitioner Family Medicine 09/20/23 Sociology Professor Relationship Specialty Start Date End Date Ty Amin MD [address] [place] [address] PCP - General Family Medicine 09/20/23 Mckayla Blas NP [address] [place] [address] Nurse Practitioner Family Medicine 09/20/23 Sociology Professor Relationship Specialty Start Date End Date Ty Amin MD [address] [place] [address] PCP - General Family Medicine 09/20/23 Mckayla Blas NP [address] [place] [address] Nurse Practitioner Family Medicine 09/20/23 Sociology Professor Relationship Specialty Start Date End Date Ty Amin MD [address] [place] [address] PCP - General Family Medicine 09/20/23 Mckayla Blas NP [address] [place] [address] Nurse Practitioner Family Medicine 09/20/23 Sociology Professor Relationship Specialty Start Date End Date Ty Amin MD [address] [place] [address] PCP - General Family Medicine 09/20/23 Mckayla Blas NP [address] [place] [address] Nurse Practitioner Family Medicine 09/20/23 Sociology Professor Relationship Specialty Start Date End Date Ty Amin MD [address] [place] [address] PCP - General Family Medicine 09/20/23 Mckayla Blas NP [address] [place] [address] Nurse Practitioner Family Medicine 09/20/23 REASON FOR [...] BE BASED ON THE PRIMARY CLINICAL RECORDS. [facility]. provides no warranty or guarantee of the accuracy or completeness of information in this document.
--- NOTE | 2025-03-26 12:30 | ECG_ITS ---
The Test Date: 2025-03-26 Pat Name: SINA NICHOLE Department: Room: - Gender: Female Costing Manager: : [id number] Requested By: [id number] Order Number: [id number] Reading MD: BHARAT AGUILAR M.D. Measurements Intervals [place] Rate: 67 P: 64 CT: 198 QRS: -42 QRSD: 93 T: 70 QT: 423 QTc: 447 Interpretive Statements SINUS RHYTHM MARKED LEFT AXIS DEVIATION [QRS AXIS < -30] LOW QRS VOLTAGE IN PRECORDIAL LEADS [QRS DEFLECTION < 1.0 mV IN CHEST LEADS] POSSIBLE ANTERIOR MYOCARDIAL INFARCTION [30 ms Q WAVE IN V3/V4, OR R < 0.2 mV IN V4], OF INDETERMINATE AGE Compared to ECG 12/04/2024 16:32:42 Left-axis deviation now present Sinus tachycardia no longer present Myocardial infarct finding still present Electronically Signed On 03-26-2025 18:16:00 EDT by BHARAT AGUILAR M.D.
[2025-03-26 12:34] LABS: Hematocrit 52.5 % (36.0-48.0); Hemoglobin 16.1 g/dL (12.0-16.0); Immature Granulocytes Abs Auto 0.03 10^3/uL (0.00-0.03); Immature Granulocytes Pct Auto 0.3 % (0.0-0.5); Lymphocytes Absolute Auto 2.7 10^3/uL (1.2-3.8); Mean Corpuscular HGB Conc 30.7 g/dL (29.9-35.2); Mean Corpuscular Hemoglobin 27.2 pg (26.7-34.0); Mean Corpuscular Volume 88.7 fL (81.0-99.0); Platelet Count 146 10^3/uL (150-450); Red Blood Count 5.92 10^6/uL (4.20-5.40); White Blood Count 10.0 10^3/uL (4.0-11.0)
[2025-03-26 13:07] LABS: Albumin Level 2.8 g/dL (3.4-5.0); Anion Gap 8.7; Blood Urea Nitrogen 15.0 mg/dL (7.0-18.0); Calcium 8.6 mg/dL (8.5-10.1); Carbon Dioxide 31.5 mmol/L (21.0-32.0); Chloride 105 mmol/L (98-107); Estimated GFR (African America >60 (>=60 mL/min/1.73m^2); Estimated GFR (Non-African Ame >60 (>=60 mL/min/1.73m^2); Glucose 147 mg/dL (74-106); Potassium 4.2 mmol/L (3.5-5.1); Sodium 141 mmol/L (136-145)
== END 2025-03-26 11:55 | disposition home or self-care (01) ==
LOC: CARD 11:58
PROVIDERS: PCP Nurse Practitioner; Visit Provider Podiatrist Foot & Ankle Surgery
DX: Z01.818 Encounter for other preprocedural examination (principal)
CPT/HCPCS: 36415; 80069; 85025; 85652; 86140; 93005

== ENCOUNTER 2025-03-26 13:47 | Outpatient (OUT) | payer MEDICARE, SELFPAY ==
--- OUTSIDE RECORDS SUMMARY | 2025-03-26 13:57 | XMS_ITS | CCD ---
Author Organization [facility] Care Team Providers Care Carpet Inspector Name Role Phone James Benavidez Primary Care Provider JAMES BENAVIDEZ Primary Care Unavailable SHENDGE, VITHAL Admitting Unavailable SHENDGE, VITHAL Attending Unavailable AICHHOLZ, MCKAYLA Primary Care Unavailable AICHHOLZ, MCKAYLA Referring Unavailable AICHHOLZ, MCKAYLA J Primary Care Physician [phone] Tico, Stephanie Unavailable OLE RAMIREZ Attending Unavailable OLE RAMIREZ Consulting Unavailable AICHHOLZ, MOTION PICTURE EQUIPMENT MACHINIST MCKAYLA Primary Care Unavailable OLE RAMIREZ Admitting Unavailable ANTONY SHRESTHA Consulting Unavailable ALONDRA ., UMBERTO Admitting Unavailable ALONDRA ., UMBERTO Attending Unavailable AICHHOLZ, MOTION PICTURE EQUIPMENT MACHINIST MCKAYLA Primary Care Unavailable AFSANEH Loera, DR BOLANOS Consulting Unavailable MARYANNE POWER Consulting Unavailable GLENN KERR Consulting Unavailable YOMAIRA KERR Consulting Unavailable HATTIE GOFF Consulting Unavailable ALONDRA ., UMBERTO Consulting Unavailable TICO, STEPHANIE Attending Unavailable TICO, STEPHANIE Consulting Unavailable AICHHOLZ, MOTION PICTURE EQUIPMENT MACHINIST MCKAYLA Primary Care Unavailable TICO, STEPHANIE Admitting Unavailable REGLA ., DR DUMONT Admitting Unavailable AICHHOLZ, MOTION PICTURE EQUIPMENT MACHINIST MCKAYLA Primary Care Unavailable REGLA ., DR DUMONT Attending Unavailable ARAUZ ., DR DUMONT Consulting Unavailable COLLIN HUERTAS Consulting Unavailable CECILIA KAUFMAN Admitting Unavailable CECILIA KAUFMAN Attending Unavailable AICHHOLZ, MOTION PICTURE EQUIPMENT MACHINIST MCKAYLA Primary Care Unavailable RAFAEL GONGORA Attending Unavailable RAFAEL GONGORA Admitting Unavailable AICHHOLZ, MOTION PICTURE EQUIPMENT MACHINIST MCKAYLA Primary Care Unavailable AICHHOLZ, MOTION PICTURE EQUIPMENT MACHINIST MCKAYLA Admitting Unavailable AICHHOLZ, MOTION PICTURE EQUIPMENT MACHINIST MCKAYLA Primary Care Unavailable AICHHOLZ, MOTION PICTURE EQUIPMENT MACHINIST MCKAYLA Attending Unavailable AICHHOLZ, MOTION PICTURE EQUIPMENT MACHINIST MCKAYLA Consulting Unavailable LAKSHMIPATHY ., NARENDRANATH Attending Anette vailable LAKSHMIPATHY ., NARENDRANATH Consulting Anette vailable LAKSHMIPATHY ., NARENDRANATH Admitting Anette vailable AICHHOLZ, MOTION PICTURE EQUIPMENT MACHINIST MCKAYLA Primary Care Unavailable VALENZUELA ., GIL Consulting Unavailable MORTENSEN ., DR CHAPARRO Aguillon Attending Unavailable MORTENSEN ., DR CHAPAROR Aguillon Admitting Unavailable AICHHOLZ, MOTION PICTURE EQUIPMENT MACHINIST MCKAYLA Primary Care Unavailable VALENZUELA ., GIL Consulting Unavailable MORTENSEN ., DR CHAPARRO Aguillon Admitting Unavailable AICHHOLZ, MOTION PICTURE EQUIPMENT MACHINIST MCKAYLA Primary Care Unavailable MORTENSEN ., DR CHAPARRO Aguillon Attending Unavailable HALKER ., SUBHASH Consulting Unavailable LAKSHMIPATHY ., NARENDRANATH Admitting Anette vailable LAKSHMIPATHY ., NARENDRANATH Attending Anette vailable AICHHOLZ, MOTION PICTURE EQUIPMENT MACHINIST MCKAYLA Primary Care Unavailable MORTENSEN ., DR CHAPARRO Aguillon Attending Unavailable MORTENSEN ., DR CHAPARRO Aguillon Admitting Unavailable VALENZUELA ., GIL Consulting Unavailable AICHHOLZ, MOTION PICTURE EQUIPMENT MACHINIST MCKAYLA Primary Care Unavailable VALENZUELA ., GIL Consulting Unavailable MORTENSEN ., DR CHAPARRO Aguillon Attending Unavailable MORTENSEN ., DR CHAPARRO Aguillon Admitting Unavailable AICHHOLZ, MOTION PICTURE EQUIPMENT MACHINIST MCKAYLA Primary Care Unavailable HATTIE BRODERICK Attending Unavailable HATTIE BRODERICK Admitting Unavailable AICHHOLZ, MOTION PICTURE EQUIPMENT MACHINIST MCKAYLA Primary Care Unavailable AICHHOLZ, MOTION PICTURE EQUIPMENT MACHINIST MCKAYLA Admitting Unavailable AICHHOLZ, MOTION PICTURE EQUIPMENT MACHINIST MCKAYLA Consulting Unavailable AICHHOLZ, MOTION PICTURE EQUIPMENT MACHINIST MCKAYLA Primary Care Unavailable AICHHOLZ, MOTION PICTURE EQUIPMENT MACHINIST MCKAYLA Attending Unavailable AICHHOLZ, MOTION PICTURE EQUIPMENT MACHINIST MCKAYLA Primary Care Unavailable MISC, DR LESLIE Admitting Unavailable MISC, DR LESLIE Attending Unavailable MISC, DR LESLIE Consulting Unavailable DIAB ., MARIANO Admitting Unavailable DIAB ., MARIANO Attending Unavailable DIAB ., MARIANO Consulting Unavailable AICHHOLZ, MOTION PICTURE EQUIPMENT MACHINIST MCKAYLA Primary Care Unavailable RASTEGAR, RICCO Consulting Unavailable AICHHOLZ, MOTION PICTURE EQUIPMENT MACHINIST MCKAYLA Admitting Unavailable AICHHOLZ, MOTION PICTURE EQUIPMENT MACHINIST MCKAYLA Primary Care Unavailable AICHHOLZ, MOTION PICTURE EQUIPMENT MACHINIST MCKAYLA Attending Unavailable AICHHOLZ, MOTION PICTURE EQUIPMENT MACHINIST MCKAYLA Consulting Unavailable DR PATRICIA VELOZ Consulting Unavailable TAMLYN ., CECILIA Attending Unavailable TAMLYN ., CECILIA Admitting Unavailable DR PATRICIA VELOZ Consulting Unavailable AICHHOLZ, MOTION PICTURE EQUIPMENT MACHINIST MCKAYLA Primary Care Unavailable TAMLYN ., CECILIA Consulting Unavailable MORTENSEN ., DR CHAPARRO Aguillon Attending Unavailable FESTUS ., DR CHAPARRO Aguillon Consulting Unavailable FESTUS ., DR CHAPARRO Aguillon Admitting Unavailable AICHHOLZ, MOTION PICTURE EQUIPMENT MACHINIST MCKAYLA Primary Care Unavailable HATTIE BRODERICK Attending Unavailable HATTIE BRODERICK Consulting Unavailable HATTIE BRODERICK Admitting Unavailable AICHHOLZ, MOTION PICTURE EQUIPMENT MACHINIST MCKAYLA Primary Care Unavailable HATTIE BAUTISTA Unavailable AICHHOLZ, MOTION PICTURE EQUIPMENT MACHINIST MCKAYLA Admitting Unavailable AICHHOLZ, MOTION PICTURE EQUIPMENT MACHINIST MCKAYLA Attending Unavailable AICHHOLZ, MOTION PICTURE EQUIPMENT MACHINIST MCKAYLA Consulting Unavailable AICHHOLZ, MOTION PICTURE EQUIPMENT MACHINIST MCKAYLA Primary Care Unavailable Brennan PHIPPS, Ty Primary Care Provider Brennan PHIPPS, Ty Primary Care Provider Aichholz MANAGER TRAINING AND DEVELOPMENT, Mckayla Unavailable Aichholz MANAGER TRAINING AND DEVELOPMENT, Mckayla Unavailable Elbert ARAUZ Attending Unavailable SARAH VEGA Attending Unavailable AICHHOLZ, MCKAYLA Attending Unavailable RAIN SOUZA F Attending Unavailable AICHHOLZ, MCKAYLA Attending Unavailable AICHHOLZ, MCKAYLA Attending Unavailable AICHHOLZ, MCKAYLA Attending Unavailable LIBBYRAIN GIANG F Attending Unavailable AICHHOLZ, MCKAYLA Attending Unavailable LIBBYRAIN GIANG F Attending Unavailable LIBBY, AHMAD F Referring Unavailable AICHHOLZ, MCKAYLA Attending Unavailable DAKOTAH BRIDGES Attending Unavailable AMI ORO Attending Unavailable Aichholz MANAGER TRAINING AND DEVELOPMENT, Mckayla Unavailable Adonay CHAU, Flynn Arzate Attending Unavailab le Bob TAX MANAGER-MOTION PICTURE EQUIPMENT MACHINIST, Omero Lovell Attending Unav ailable Adonay CHAU, Flynn Arzate Referring Unavailab lolita Kellogg MD, Corinne Ghosh Attending Unavail able Bob TAX MANAGER-MOTION PICTURE EQUIPMENT MACHINIST, Omero Lovell Attending Unav ailable Adonay CHAU, Flynn Arzate Attending Unavailab le Bob TAX MANAGER-MOTION PICTURE EQUIPMENT MACHINIST, Omero Lovell Attending Unav ailable Allergies Allergy Classification Reported Allergen(s) Allergy Type Date of Onset Reaction(s) Facility (1 source) No Known Medication Allergies; Translations: [No Known Medication Allergies] Propensity to adverse reactions (disorder) [facility] Repository Medications Current Medications Medication [...] Start Date: 02/06/22 Status: Ordered HYDROcodone-acet aminophen (Sublimity) 5-325 MG tablet 1 tablet 3 (three) times a day as needed for severe pain. Active take 1 tablet by vandana twice daily as needed Sublimity 5-325 MG 1 tablet as needed Orally [...] every week ergocalciferol (Vitamin D2) 1.25 MG (43104 UT) capsule Indications: Vitamin D deficiency, unspecified Take 1 capsule (1.25 mg) by mouth 1 (one) time per week 12 capsule 1 01/16/2025 04/10/2025 Active Start: 10-27-2024 End: 01-19-2025 take 1 capsule by mouth two times weekly ergocalciferol (Vitamin D2) 1.25 MG (98323 UT) capsule Indications: Vitamin D deficiency, unspecified Take 1 capsule (1.25 mg) by mouth 2 (two) times a week 24 capsule 1 10/27/2024 01/19/2025 Active Start: 04-06-2024 End: 10-27-2024 take 1 capsule by mouth every week ergocalciferol (Vitamin D2) 1.25 MG (50992 UT) capsule Indications: Vitamin D deficiency, unspecified [...] Other [facility] (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 therapy; Translations: [OTH DETENTION CURRENT DRUG THERAPY] Onset: 12-05-2022 Episodic Other aftercare (1 source) 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 Unclassified (1 source) DETENTION INJECT NONINSULN ANTIDIAB; Translations: [OUTBOARD MOTOR TESTER INJECT NONINSULN ANTIDIAB] Onset: 12-05-2022 Unclassified (3 [...] 08-27-2024 08-27-2024 Episodic Other aftercare (3 sources) 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; Translations: [DETENTION CURRENT USE OF INSULIN] Onset: 12-05-2022 Episodic Other aftercare (20 sources) Long-term current use of inhaled steroid; Translations: [custodial (current) use of inhaled steroids] Onset: 08-27-2024 [...] She has had testing done at the [facility] last year which she brought with [...] Bob REBOLLEDOOmero Nas 03/23/25 12:01 EDT Normal [facility] Podiatry Office/Clinic Noteo n 03-11-2025 Podiatry Office/Clinic [...] wraps (gauze, tila bandage, Coban II, tuba qualitative field project manager), Dakins solution, a 40-day course of [...] other blood thinners. The patient resides in [place]. Review of Systems Constitutional: Negative for signs [...] extremities Positi (more content not included)... Normal [facility] Comment on above: Order Comment: Destiny ocampo Attachment [id number] Can be viewed in source system XR [...] Electronically Signed in Other Vendor System) Normal [facility] Orders Onlyon 01-30-2025 Orders Only [id number] Mitzi Macias 1970 F Date Provider Department Center 01/30/2025 [id number], HISTORICAL [facility] Family History Problem Relation Age of Onset Heart attack Paternal Grandmother Family Status - Relation Status Age at Mother Father Paternal Grandmother Normal [facility] CA ECHO DOPPLER COMPLETEon 0 01-29-2025 [place] [id number] Cardiology Report Signed Patient: MITZI MACIAS MR#: [id number] : 1970 Acct:[id number] Age/Sex: 54 / F ADM Date: 01/29/25 Loc: CARD Attending Dr: AMI ORO APRN Ordering Physician: AMI ORO APRN Date of Service: 01/29/25 Procedure(s): CA echo doppler complete Accession Number(s): [id number] cc: Mckayla Blas MANAGER TRAINING AND DEVELOPMENT; AMI ORO APRN Patient Name: MITZI MACIAS MR#: [id number] : 1970 Exam Date: 01/29/2025 Ordering Doctor: AMI ORO [facility] ECHOCARDIOGRAM REPORT PROCEDURE: CA ECHO DOPPLER COMPLETE [...] HERRERA Signed By: 01/29/251839 DD/ 39 TD/TT: Recycler: [facility] Radiology, Radiologist, MD - 01/29/2025 [place] [address] Cardiology Report Signed Patient: MITZI MACIAS MR#: [id number] : 1970 Acct:[id number] Age/Sex: 54 / F ADM Date: 01/29/25 Loc: CARD Attending Dr: AMI ORO APRN Ordering Physician: AMI ORO APRN Date of Service: 01/29/25 Procedure(s): CA echo doppler complete Accession Number(s): [id number] cc: Mckayla Blas MANAGER TRAINING AND DEVELOPMENT; AMI ORO APRN Patient Name: MITZI MACIAS MR#: [id number] : 1970 Exam Date: 01/29/2025 Ordering Doctor: [...] HERRERA Signed By: 01/29/251839 DD/ 39 TD/TT: Recycler: [facility] Radiology Study observation (narrative) [facility] CA ECHO DOPPLER COMPLETEOrde red By: Radiologist Radiology on 01-29-2025 [facility] Work Phone: Glucose (Bld) [Mass/Vol]on 0 01-29-2025 Glucose Blood, POC 121 mg/dL [facility] Laboratory - Hematology and Cell countson 01-29-2025 HbA1c (Bld) [Mass fraction] 8.4 % [facility] No Panel Informationon 01-29 Interpretation and review of laboratory results Abnormal [facility] Office Visiton 01-06-2025 Follow-up visit [id number] Mitzi Macias 1970 F Date Provider Department Center 01/06/2025 Mikaela-AMI ORO CARD [facility] Family History Problem Relation Age of Onset Heart attack Paternal Grandmother Family Status - Relation Status Age at Mother Father Paternal Grandmother Level of Service:10037 CA OFFICE/OUTPATIENT ESTABLISHED MOD [facility] 30 MIN Reason for Visit and Comments: Congestive Heart Failure [127] Hypertension [950695] Hyperlipidemia [182] Normal [facility] 36on 10-21-2024 36 Regarding lab results from 10/08/2024: MD Mickie Merritt MA Lipids, ALT AST, and BMP are normal. HbA1c was not performed. Continue current management. LM on patient's VM. Normal [facility] Glucose (Bld) [Mass/Vol]Orde red By: Mica Sauceda on 10-08-2024 Glucose Blood, POC 97 mg/dL [facility] - Hematology and Cell countson 10-08-2024 HbA1c (Bld) [Mass fraction] 7.4 % [facility] No Panel InformationOrdered By: Mica Sauceda on 10-08-2024 [facility] UA (CLEAN/CATCH) MICROSC OPIC IF INDICATEon 10-08-2024 BILIRUBIN URINE Negative NEGATIVE [facility] BLOOD URINE Negative NEGATIVE [facility] Clarity (U) CLEAR CLEAR [facility] Color (U) YELLOW YELLOW [facility] GLUCOSE URINE UA Negative NEGATIVE mg/dL [facility] Interpretation and review of laboratory results Abnormal [facility] Ketones Ql (U) Negative NEGATIVE mg/dL [facility] Leukocyte esterase Test strip Ql (U) Negative NEGATIVE [facility] NITRITE URINE Negative NEGATIVE [facility] pH (U) 5.5 [pH] 5.0 - 9.0 [facility] Protein (U) [Mass/Vol] 30 mg/dL Abnormal NEG/TRACE NO [facility] SPECIFIC GRAVITY URINE >=1.030 Abnormal 1.005 - 1.025 [facility] URINE MICROSCOPIC INDICATED YES [facility] UROBILINOGEN URINE 1.0 EU/dL 0.2 - 1.0 EU/dL [facility] ALL CBC WITH AUTO DIFFon BASOPHILS ABSOLUTE AUTO 0.1 [facility] Basophils/100 WBC (Bld) 0.5 % 0.2 - 2.0 % [facility] Eosinophils/100 WBC (Bld) 1.9 % 0.9 - 7.0 % [facility] Erythrocyte distribution width (RBC) [Ratio] 14.6 % 11.0 - 15.0 % [facility] Hematocrit (Bld) [Volume fraction] 50.9 % High 36.0 - 48.0 % [facility] Hemoglobin (Bld) [Mass/Vol] 16.1 g/dL High 12.0 - 16.0 g/dL [facility] IMMATURE GRANULOCYTES ABS AUTO 0.04 High [facility] Immature granulocytes/100 WBC (Bld) 0.3 % 0.0 - 0.5 % [facility] Interpretation and review of laboratory results Abnormal [facility] LYMPHOCYTES ABSOLUTE AUTO 3.2 [facility] Lymphocytes/100 WBC (Bld) 25.1 % 20.5 - 60.0 % [facility] MCH (RBC) [Entitic mass] 29.2 pg 26.7 - 34.0 pg [facility] MCHC (RBC) [Mass/Vol] 31.6 g/dL 29.9 - 35.2 g/dL [facility] MCV (RBC) [Entitic vol] 92.2 fL 81.0 - 99.0 fL [facility] MONOCYTES ABSOLUTE AUTO 0.7 [facility] Monocytes/100 WBC (Bld) 5.2 % 1.7 - 12.0 % [facility] NEUTROPHILS ABSOLUTE AUTO 8.6 High [facility] Neutrophils/100 WBC (Bld) 67 % 43.0 - 75.0 % [facility] Platelet mean volume (Bld) [Entitic vol] 12.8 fL 9.5 - 13.5 fL [facility] EO # 0.2 [facility] TB PLT 122 Low [facility] RBC 5.52 High [facility] WBC 12.8 High [facility] Office Visiton 08-08-2024 Follow-up visit [id number] Mitzi Macias Gilberto 1970 F Date Provider Department Center 08/08/2024 [id number] BRIDGES CARD [facility] Family History Problem Relation Age of Onset Heart attack Paternal Grandmother Family Status - Relation Status Age at Paternal Grandmother Level of Service:79577 [place] OFFICE/OUTPATIENT ESTABLISHED MOD MDM 30 MIN Reason for Visit and Comments: Congestive Heart Failure [127] - Denies chest pain, SOB, and palpitations. Hypertension [863408] Hyperlipidemia [182] LVH [Other] Edema [[id number]] - Denies worsening edema. She sees wound care for RLE ulcer. She was seeing the vein specialists here in town but they are moving to [place] in a few weeks. Normal [facility] Glucose (Bld) [Mass/Vol]Orde red By: Mica Sauceda on 05-27-2024 Glucose Blood, POC 158 mg/dL [facility] - Hematology and Cell countson 05-27-2024 HbA1c (Bld) [Mass fraction] 9.2 % [facility] No Panel InformationOrdered By: Mica Sauceda on 05-27-2024 [facility] CREATININEon 05-12-2024 Creatinine [Mass/Vol] 0.92 mg/dL 0.55 - 1.02 mg/dL [facility] GFR/1.73 sq M.predicted CKD-EPI (S/P/Bld) [Vol rate/Area] >60 >=60 mL/min/1.73m [address] [facility] EGFR-NON AF UZBEK >60 >=60 mL/min/1.73m 2 [facility] CBC AUTO DIFFon 12-06-2022 BASO # 0.0 103/ul Normal 0.0-0.1 [facility] Comment on above: Performed By: #### C BC #### [facility] [address] [address] [address] Ashlie Hills Basophils/100 WBC (Bld) 0.1 % Critically low 0.2-2.0 [facility] Comment on above: Performed By: #### C BC #### [facility] [address] [address] [address] Ashlie Hills EO # 0.0 103/ul Normal 0.0-0.7 [facility] Comment on above: Performed By: #### C BC #### [facility] [address] [address] [address] Ashlie Hills Eosinophils/100 WBC (Bld) 0.0 % Critically low 0.9-7.0 [facility] Comment on above: Performed By: #### C BC #### [facility] [address] [address] [address] Ashlie Hills Erythrocyte distribution width (RBC) [Ratio] 14.9 % Normal 11.0-15.0 [facility] Comment on above: Performed By: #### C BC #### [facility] [address] [address] [address] Ashlie Hills Hematocrit (Bld) [Volume fraction] 46.2 % Normal 36.0-48.0 [facility] Comment on above: Performed By: #### C BC #### [facility] [address] [address] [address] Ashlie Hills Hemoglobin (Bld) [Mass/Vol] 14.7 g/dL Normal 12.0-16.0 [facility] Comment on above: Performed By: #### C BC #### [facility] [address] [address] [address] Ashlie Hills IG # 0.06 10e3/ul Critically high 0.00-0.03 [facility] Comment on above: Performed By: #### C BC #### [facility] [address] [place] [address] Dr. Ashlie Hills IG % 0.4 % Normal 0.0-0.5 [facility] Comment on above: Performed By: #### C BC #### [facility] [address] [place] [address] Dr. Ashlie Hills LYMPH # 1.3 103/ul Normal 1.2-3.8 [facility] Comment on above: Performed By: #### C BC #### [facility] [address] [place] [address] Dr. Ashlie Hills Lymphocytes/100 WBC (Bld) 9.4 % Critically low 20.5-60.0 [facility] Comment on above: Performed By: #### C BC #### [facility] [address] [place] [address] Dr. Ashlie Hills MANUAL DIFF REQ NO Normal [facility] Comment on above: Performed By: #### C BC #### [facility] [address] [place] [address] Dr. Ashlie Hills MCH (RBC) [Entitic mass] 28.4 pg Normal 26.7-34.0 [facility] Comment on above: Performed By: #### C BC #### [facility] [address] [place] [address] Dr. Ashlie Hills MCHC (RBC) [Mass/Vol] 31.8 g/dL Normal 29.9-35.2 [facility] Comment on above: Performed By: #### C BC #### [facility] [address] [place] [address] Dr. Ashlie Hills MCV (RBC) [Entitic vol] 89.4 fL Normal 81.0-99.0 [facility] Comment on above: Performed By: #### C BC #### [facility] [address] [place] [address] Dr. Ashlie Hills MONO # 0.5 103/ul Normal 0.3-0.8 [facility] Comment on above: Performed By: #### C BC #### [facility] [address] [place] [address] Dr. Ashlie Hills Monocytes/100 WBC (Bld) 3.4 % Normal 1.7-12.0 [facility] Comment on above: Performed By: #### C BC #### [facility] [address] [place] [address] Dr. Ashlie Hills NEUT # 11.8 103/ul Critically high 1.4-6.5 [facility] Comment on above: Performed By: #### C BC #### [facility] [address] [place] [address] Dr. Ashlie Hills Neutrophils/100 WBC (Bld) 86.7 % Critically high 43.0-75.0 [facility] Comment on above: Performed By: #### C BC #### [facility] [address] [place] [address] Dr. Ashlie Hills Platelet mean volume (Bld) [Entitic vol] 12.6 fL Normal 9.5-13.5 [facility] Comment on above: Performed By: #### C BC #### [facility] [address] [place] [address] Dr. Ashlie Hills PLT 133 103/ul Critically low 150-450 [facility] Comment on above: Performed By: #### C BC #### [facility] [address] [place] [address] Dr. Ashlie Hills RBC 5.17 106/ul Normal 4.20-5.40 [facility] Comment on above: Performed By: #### C BC #### [facility] [address] [place] [address] Dr. Ashlie Hills WBC 13.6 103/ul Critically high 4.0-11.0 [facility] Comment on above: Performed By: #### C BC #### [facility] [address] [place] [address] Dr. Ashlie Hills MAGNESIUMon 12-06-2022 Magnesium [Mass/Vol] 2.2 mg/dL Normal 1.8-2.4 [facility] Comment on above: Performed By: #### I NFLUAB #### [facility] [address] [address] [address] Ashlie Hills POINT OF CARE GLUCOSEon 11-08 Glucose [Mass/Vol] 340 mg/dL Critically high -106 [facility] Comment on above: Performed By: #### P OCGLUC #### [facility] [address] [place] [address] Dr. Ashlie Hills Glucose [Mass/Vol] 276 mg/dL Critically high -106 [facility] Comment on above: Performed By: #### C BC #### [facility] [address] [address] [address] Ashlie Hills Glucose [Mass/Vol] 333 mg/dL Critically high [address] [place] [address] Comment on above: Performed By: #### C BC #### [facility] [address] [place] [address] Dr. Ashlie Hills PROF CHEM 8 (BAS METB)on Anion gap [Moles/Vol] 10.9 mmol/L Normal [facility] Comment on above: Performed By: #### I NFLUAB #### [facility] [address] [address] [address] Ashlie Hills Calcium [Mass/Vol] 9.3 mg/dL Normal 8.5-10.1 [facility] Comment on above: Performed By: #### I NFLUAB #### [facility] [address] [place] [address] Dr. Ashlie Hills Chloride [Moles/Vol] 103 mmol/L Normal 98-107 [facility] Comment on above: Performed By: #### I NFLUAB #### [facility] [address] [place] [address] Dr. Ashlie Hills CO2 [Moles/Vol] 31.2 mmol/L Normal 21.0-32.0 [facility] Comment on above: Performed By: #### I NFLUAB #### [facility] [address] [place] [address] Dr. Ashlie Hills Creatinine [Mass/Vol] 0.96 mg/dL Normal 0.55-1.02 [facility] Comment on above: Performed By: #### I NFLUAB #### [facility] [address] [address] [address] Ashlie Hills EGFR-AF UZBEK >60 Normal >=60 [facility] Comment on above: Performed By: #### I NFLUAB #### [facility] [address] [address] [address] Ashlie Hills EGFR-NON AF UZBEK >60 Normal >=60 [facility] Comment on above: Performed By: #### I NFLUAB #### [facility] [address] [address] [address] Ashlie Hills Glucose [Mass/Vol] 288 mg/dL Critically high 74-106 [facility] Comment on above: Performed By: #### I NFLUAB #### [facility] [address] [place] [address] Dr. Ashlie Hills Potassium [Moles/Vol] 5.1 mmol/L Normal 3.5-5.1 [facility] Comment on above: Performed By: #### I NFLUAB #### [facility] [address] [address] [address] Ashlie Hills Sodium [Moles/Vol] 140 mmol/L Normal 136-145 [facility] Comment on above: Performed By: #### I NFLUAB #### [facility] [address] [address] [address] Ashlie Hills Urea nitrogen [Mass/Vol] 30.0 mg/dL Critically high 7.0-18.0 [facility] Comment on above: Performed By: #### I NFLUAB #### [facility] [address] [address] [address] Ashlie Hills Urea nitrogen/Creatinine [Mass ratio] 31.2 mg/mg Normal [facility] Comment on above: Performed By: #### I NFLUAB #### [facility] [address] [place] [address] Dr. Ashlie Hills CBC AUTO DIFFon 12-05-2022 BASO # 0.0 103/ul Normal 0.0-0.1 [facility] Comment on above: Performed By: #### C BC #### [facility] [address] [address] [address] Ashlie Hills Basophils/100 WBC (Bld) 0.4 % Normal 0.2-2.0 [facility] Comment on above: Performed By: #### C BC #### [facility] [address] [place] [address] Dr. Ashlie Hills EO # 0.0 103/ul Normal 0.0-0.7 [facility] Comment on above: Performed By: #### C BC #### [facility] [address] [place] [address] Dr. Ashlie Hills Eosinophils/100 WBC (Bld) 0.0 % Critically low 0.9-7.0 [facility] Comment on above: Performed By: #### C BC #### [facility] [address] [place] [address] Dr. Ashlie Hills Erythrocyte distribution width (RBC) [Ratio] 14.8 % Normal 11.0-15.0 [facility] Comment on above: Performed By: #### C BC #### [facility] [address] [place] [address] Dr. Ashlie Hills Hematocrit (Bld) [Volume fraction] 49.9 % Critically high 36.0-48.0 [facility] Comment on above: Performed By: #### C BC #### [facility] [address] [place] [address] Dr. Ashlie Hills Hemoglobin (Bld) [Mass/Vol] 15.7 g/dL Normal 12.0-16.0 [facility] Comment on above: Performed By: #### C BC #### [facility] [address] [place] [address] Dr. Ashlie Hills IG # 0.04 10e3/ul Critically high 0.00-0.03 [facility] Comment on above: Performed By: #### C BC #### [facility] [address] [place] [address] Dr. Ashlie Hills IG % 0.5 % Normal 0.0-0.5 [facility] Comment on above: Performed By: #### C BC #### [facility] [address] [address] [address] Ashlie Hills LYMPH # 1.1 103/ul Critically low 1.2-3.8 [facility] Comment on above: Performed By: #### C BC #### [facility] [address] [address] [address] Ashlie Hills Lymphocytes/100 WBC (Bld) 12.7 % Critically low 20.5-60.0 [facility] Comment on above: Performed By: #### C BC #### [facility] [address] [place] [address] Dr. Ashlie Hills MANUAL DIFF REQ NO Normal [facility] Comment on above: Performed By: #### C BC #### [facility] [address] [place] [address] Dr. Ashlie Hills MCH (RBC) [Entitic mass] 28.1 pg Normal 26.7-34.0 [facility] Comment on above: Performed By: #### C BC #### [facility] [address] [place] [address] Dr. Ashlie Hills MCHC (RBC) [Mass/Vol] 31.5 g/dL Normal 29.9-35.2 [facility] Comment on above: Performed By: #### C BC #### [facility] [address] [place] [address] Dr. Ashlie Hills MCV (RBC) [Entitic vol] 89.3 fL Normal 81.0-99.0 [facility] Comment on above: Performed By: #### C BC #### [facility] [address] [address] [address] Ashlie Hills MONO # 0.1 103/ul Critically low 0.3-0.8 [facility] Comment on above: Performed By: #### C BC #### [facility] [address] [place] [address] Dr. Ashlie Hills Monocytes/100 WBC (Bld) 1.3 % Critically low 1.7-12.0 [facility] Comment on above: Performed By: #### C BC #### [facility] [address] [address] [address] Ashlie Hills NEUT # 7.2 103/ul Critically high 1.4-6.5 [facility] Comment on above: Performed By: #### C BC #### [facility] [address] [address] [address] Ashlie Hills Neutrophils/100 WBC (Bld) 85.1 % Critically high 43.0-75.0 [facility] Comment on above: Performed By: #### C BC #### [facility] [address] [address] [address] Ashlie Hills Platelet mean volume (Bld) [Entitic vol] 12.2 fL Normal 9.5-13.5 [facility] Comment on above: Performed By: #### C BC #### [facility] [address] [address] [address] Ashlie Hills PLT 116 103/ul Critically low 150-450 [facility] Comment on above: Performed By: #### C BC #### [facility] [address] [address] [address] Ashlie Hills RBC 5.59 106/ul Critically high 4.20-5.40 [facility] Comment on above: Performed By: #### C BC #### [facility] [address] [address] [address] Ashlie Hills WBC 8.5 103/ul Normal 4.0-11.0 [facility] Comment on above: Performed By: #### C BC #### [facility] [address] [place] [address] Dr. Ashlie Hills CTA CHEST WO W [...] by: HATTIE GOFF Date: 2022-12-05 01:52 Normal [facility] MAGNESIUMon 12-05-2022 Magnesium [Mass/Vol] 2.1 mg/dL Normal 1.8-2.4 [facility] Comment on above: Performed By: #### P OCGLUC #### [facility] [address] [address] [address] Ashlie Hills POINT OF CARE GLUCOSEon 11-08 Glucose [Mass/Vol] 293 mg/dL Critically high -106 [facility] Comment on above: Performed By: #### P OCGLUC #### [facility] [address] [address] [address] Ashlie Hills Glucose [Mass/Vol] 269 mg/dL Critically high -106 [facility] Comment on above: Performed By: #### P OCGLUC #### [facility] [address] [address] [address] Ashlie Hills Glucose [Mass/Vol] 223 mg/dL Critically high -106 [facility] Comment on above: Performed By: #### C VDAGS #### [facility] [address] [address] [address] Ashlie Hills PROF CHEM 8 (BAS METB)on Anion gap [Moles/Vol] 11.6 mmol/L Normal [facility] Comment on above: Performed By: #### P OCGLUC #### [facility] [address] [address] [address] Ashlie Hills Calcium [Mass/Vol] 9.2 mg/dL Normal 8.5-10.1 [facility] Comment on above: Performed By: #### P OCGLUC #### [facility] [address] [address] [address] Ashlie Hills Chloride [Moles/Vol] 102 mmol/L Normal 98-107 [facility] Comment on above: Performed By: #### P OCGLUC #### [facility] [address] [address] [address] Ashlie Hills CO2 [Moles/Vol] 28.7 mmol/L Normal 21.0-32.0 [facility] Comment on above: Performed By: #### P OCGLUC #### [facility] [address] [address] [address] Ashlie Hills Creatinine [Mass/Vol] 1.04 mg/dL Critically high 0.55-1.02 [facility] Comment on above: Performed By: #### P OCGLUC #### [facility] [address] [address] [address] Ashlie Hills EGFR-AF UZBEK >60 Normal >=60 [facility] Comment on above: Performed By: #### P OCGLUC #### [facility] [address] [address] [address] Ashlie Hills EGFR-NON AF UZBEK 56 mL/min/1.73m2 Critically low >=60 [facility] Comment on above: Performed By: #### P OCGLUC #### [facility] [address] [address] [address] Ashlie Hills Glucose [Mass/Vol] 231 mg/dL Critically high 74-106 [facility] Comment on above: Performed By: #### P OCGLUC #### [facility] [address] [address] [address] Ashlie Hills Potassium [Moles/Vol] 4.3 mmol/L Normal 3.5-5.1 [facility] Comment on above: Performed By: #### P OCGLUC #### [facility] [address] [address] [address] Ashlie Hills Sodium [Moles/Vol] 138 mmol/L Normal 136-145 [facility] Comment on above: Performed By: #### P OCGLUC #### [facility] [address] [address] [address] Ashlie Hills Urea nitrogen [Mass/Vol] 17.0 mg/dL Normal 7.0-18.0 [facility] Comment on above: Performed By: #### P OCGLUC #### [facility] [address] [place] [address] Dr. Ashlie Hills Urea nitrogen/Creatinine [Mass ratio] 16.3 mg/mg Normal [facility] Comment on above: Performed By: #### P OCGLUC #### [facility] [address] [address] [address] Ashlie Hills RESPIRATORY PANEL PLUSon Adenovirus Not detected Normal NOT DETECTED [facility] Comment on above: Performed By: #### C VDAGS #### [facility] [address] [place] [address] Dr. Ashlie Shaffer. Parapertusis Not detected Normal NOT DETECTED [facility] Comment on above: Performed By: #### C VDAGS #### [facility] [address] [address] [address] Ashlie Shaffer. Pertussis Not detected Normal NOT DETECTED [facility] Comment on above: Performed By: #### C VDAGS #### [facility] [address] [address] [address] Ashlie Hills Chlamydia Pneumoniae Not detected Normal NOT DETECTED [facility] Comment on above: Performed By: #### C VDAGS #### [facility] [address] [place] [address] Dr. Ashlie Hills Coronavirus 229E Not detected Normal NOT DETECTED [facility] Comment on above: Performed By: #### C VDAGS #### [facility] [address] [address] [address] Ashlie Hills Coronavirus HKU1 Not detected Normal NOT DETECTED [facility] Comment on above: Performed By: #### C VDAGS #### [facility] [address] [place] [address] Dr. Ashlie Hills Coronavirus NL63 Not detected Normal NOT DETECTED [facility] Comment on above: Performed By: #### C VDAGS #### [facility] [address] [place] [address] Dr. Ashlie Hills Coronavirus OC43 Not detected Normal NOT DETECTED [facility] Comment on above: Performed By: #### C VDAGS #### [facility] [address] [place] [address] Dr. Ashlie Hills Influenza A H1 Not detected Normal NOT DETECTED [facility] Comment on above: Performed By: #### C VDAGS #### [facility] [address] [place] [address] Dr. Ashlie Hills Influenza A H1 2009 Not detected Normal NOT DETECTED [facility] Comment on above: Performed By: #### C VDAGS #### [facility] [address] [place] [address] Dr. Ashlie Hills Influenza A H3 Not detected Normal NOT DETECTED [facility] Comment on above: Performed By: #### C VDAGS #### [facility] [address] [place] [address] Dr. Ashlie Hills Influenza B Not detected Normal NOT DETECTED [facility] Comment on above: Performed By: #### C VDAGS #### [facility] [address] [place] [address] Dr. Ashlie Hills Metapneumovirus Not detected Normal NOT DETECTED [facility] Comment on above: Performed By: #### C VDAGS #### [facility] [address] [place] [address] Dr. Ashlie Hills Mycoplas. Pneumoniae Not detected Normal NOT DETECTED [facility] Comment on above: Performed By: #### C VDAGS #### [facility] [address] [place] [address] Dr. Ashlie Hills Parainfluenza 1 Not detected Normal NOT DETECTED [facility] Comment on above: Performed By: #### C VDAGS #### [facility] [address] [place] [address] Dr. Ashlie Hills Parainfluenza 2 Not detected Normal NOT DETECTED [facility] Comment on above: Performed By: #### C VDAGS #### [facility] [address] [place] [address] Dr. Ashlie Hills Parainfluenza 3 Detected Abnormal NOT DETECTED The [facility] Comment on above: Performed By: #### C VDAGS #### [facility] [address] [place] [address] Dr. Ashlie Hills Parainfluenza 4 Not detected Normal NOT DETECTED [facility] Comment on above: Performed By: #### C VDAGS #### [facility] [address] [place] [address] Dr. Ashlie Hills Rhino/Enterovirus Not detected Normal NOT DETECTED [facility] Comment on above: Performed By: #### C VDAGS #### [facility] [address] [place] [address] Dr. Ashlie Hills RP2 Header 1 RESPIRATORY PANEL: VIRUSES Normal [facility] Comment on above: Performed By: #### C VDAGS #### [facility] [address] [place] [address] Dr. Ashlie Hills RP2 Header 2 RESPIRATORY PANEL: BACTERIA Normal [facility] Comment on above: Performed By: #### C VDAGS #### [facility] [address] [place] [address] Dr. Ashlie Hills RSV Not detected Normal NOT DETECTED [facility] Comment on above: Performed By: #### C VDAGS #### [facility] [address] [place] [address] Dr. Ashlie Hills SARS-CoV-2 (COVID-19) RNA MADDY+probe Ql (Unsp spec) Not detected Normal NOT DETECTED [facility] Comment on above: Performed By: #### C VDAGS #### [facility] [address] [place] [address] Dr. Ashlie Hills XR CHEST 1 Von [...] MARYANNE POWER Date: 2022-12-04 22:23 Normal [facility] BLOOD GASES BTYon 12-04-2022 02 MODE ROOM AIR Normal [facility] Comment on above: Performed By: #### C BC #### [facility] [address] [place] [address] Dr. Ashlie Hills ALLENS TEST Positive Normal [facility] Comment on above: Performed By: #### C BC #### [facility] [address] [place] [address] Dr. Ashlie Hills Base excess Calc (Bld) [Moles/Vol] 5.4 mmol/L Critically high -2.0-2.0 [facility] Comment on above: Performed By: #### C BC #### [facility] [address] [place] [address] Dr. Ashlie Hills BIPAP PRESSURE Normal [facility] Comment on above: Performed By: #### C BC #### [facility] [address] [place] [address] Dr. Ashlie Hills CPAP [facility] Comment on above: Performed By: #### C BC #### [facility] [address] [place] [address] Dr. Ashlie Hills FIO2 Normal [facility] Comment on above: Performed By: #### C BC #### [facility] [address] [place] [address] Dr. Ashlie Hills HCO3 (Bld) [Moles/Vol] 30.8 mmol/L Critically high 22.0-26 .0 [facility] Comment on above: Performed By: #### C BC #### [facility] [address] [place] [address] Dr. Ashlie Hills LPM Normal [facility] Comment on above: Performed By: #### C BC #### [facility] [address] [place] [address] Dr. Ashlie Hills MINUTE VOLUME Normal [facility] Comment on above: Performed By: #### C BC #### [facility] [address] [place] [address] Dr. Ashlie Hills Oxygen (Bld) [Partial pressure] 46.3 mm[Hg] Critically low 80.0-100.0 [facility] Comment on above: Performed By: #### C BC #### [facility] [address] [place] [address] Dr. Ashlie Hills Oxygen saturation in Blood 83.9 % Critically low 95.0-100.0 [facility] Comment on above: Performed By: #### C BC #### [facility] [address] [place] [address] Dr. Ashlie Hills PCO2 54.2 mmHg Critically high 35.0-45.0 [facility] Comment on above: Performed By: #### C BC #### [facility] [address] [place] [address] Dr. Ashlie Hills PEEP [facility] Comment on above: Performed By: #### C BC #### [facility] [address] [place] [address] Dr. Ashlie Hills pH (Bld) 7.363 [pH] Normal 7.350-7.450 [facility] Comment on above: Performed By: #### C BC #### [facility] [address] [place] [address] Dr. Ashlie Hills PIP [facility] Comment on above: Performed By: #### C BC #### [facility] [address] [place] [address] Dr. Ashlie Hills PS [facility] Comment on above: Performed By: #### C BC #### [facility] [address] [place] [address] Dr. Ashlie Hills PUNCTURE SITE LR [facility] Comment on above: Performed By: #### C BC #### [facility] [address] [place] [address] Dr. Ashlie Hills RATE [facility] Comment on above: Performed By: #### C BC #### [facility] [address] [place] [address] Dr. Ashlie Hills VENT MODE [facility] Comment on above: Performed By: #### C BC #### [facility] [address] [place] [address] Dr. Ashlie Hills [facility] Comment on above: Performed By: #### C BC #### [facility] [address] [place] [address] Dr. Ashlie Hills BNPon 12-04-2022 Natriuretic peptide B (Bld) [Mass/Vol] 76.0 pg/mL Normal <=900.0 [facility] Comment on above: Performed By: #### P OCGLUC #### [facility] [address] [place] [address] Dr. Ashlie Hills CBC AUTO DIFFon 12-04-2022 BASO # 0.1 103/ul Normal 0.0-0.1 [facility] Comment on above: Performed By: #### C BC #### [facility] [address] [place] [address] Dr. Ashlie Hills Basophils/100 WBC (Bld) 0.6 % Normal 0.2-2.0 [facility] Comment on above: Performed By: #### C BC #### [facility] [address] [place] [address] Dr. Ashlie Hills EO # 0.2 103/ul Normal 0.0-0.7 [facility] Comment on above: Performed By: #### C BC #### [facility] [address] [place] [address] Dr. Ashlie Hills Eosinophils/100 WBC (Bld) 1.9 % Normal 0.9-7.0 [facility] Comment on above: Performed By: #### C BC #### [facility] [address] [place] [address] Dr. Ashlie Hills Erythrocyte distribution width (RBC) [Ratio] 15.0 % Normal 11.0-15.0 [facility] Comment on above: Performed By: #### C BC #### [facility] [address] [place] [address] Dr. Ashlie Hills Hematocrit (Bld) [Volume fraction] 49.1 % Critically high 36.0-48.0 [facility] Comment on above: Performed By: #### C BC #### [facility] [address] [place] [address] Dr. Ashlie Hills Hemoglobin (Bld) [Mass/Vol] 15.6 g/dL Normal 12.0-16.0 [facility] Comment on above: Performed By: #### C BC #### [facility] [address] [place] [address] Dr. Ashlie Hills IG # 0.02 10e3/ul Normal 0.00-0.03 [facility] Comment on above: Performed By: #### C BC #### [facility] [address] [place] [address] Dr. Ashlie Hills IG % 0.2 % Normal 0.0-0.5 [facility] Comment on above: Performed By: #### C BC #### [facility] [address] [place] [address] Dr. Ashlie Hills LYMPH # 2.8 103/ul Normal 1.2-3.8 [facility] Comment on above: Performed By: #### C BC #### [facility] [address] [place] [address] Dr. Ashlie Hills Lymphocytes/100 WBC (Bld) 29.9 % Normal 20.5-60.0 [facility] Comment on above: Performed By: #### C BC #### [facility] [address] [place] [address] Dr. Ashlie Hills MANUAL DIFF REQ NO Normal [facility] Comment on above: Performed By: #### C BC #### [facility] [address] [place] [address] Dr. Ashlie Hills MCH (RBC) [Entitic mass] 28.5 pg Normal 26.7-34.0 [facility] Comment on above: Performed By: #### C BC #### [facility] [address] [place] [address] Dr. Ashlie Hills MCHC (RBC) [Mass/Vol] 31.8 g/dL Normal 29.9-35.2 [facility] Comment on above: Performed By: #### C BC #### [facility] [address] [place] [address] Dr. Ashlie Hills MCV (RBC) [Entitic vol] 89.8 fL Normal 81.0-99.0 [facility] Comment on above: Performed By: #### C BC #### [facility] [address] [place] [address] Dr. Ashlie Hills MONO # 1.0 103/ul Critically high 0.3-0.8 [facility] Comment on above: Performed By: #### C BC #### [facility] [address] [place] [address] Dr. Ashlie Hills Monocytes/100 WBC (Bld) 10.6 % Normal 1.7-12.0 [facility] Comment on above: Performed By: #### C BC #### [facility] [address] [place] [address] Dr. Ashlie Hills NEUT # 5.3 103/ul Normal 1.4-6.5 [facility] Comment on above: Performed By: #### C BC #### [facility] [address] [place] [address] Dr. Ashlie Hills Neutrophils/100 WBC (Bld) 56.8 % Normal 43.0-75.0 [facility] Comment on above: Performed By: #### C BC #### [facility] [address] [place] [address] Dr. Ashlie Hills Platelet mean volume (Bld) [Entitic vol] 12.5 fL Normal 9.5-13.5 [facility] Comment on above: Performed By: #### C BC #### [facility] [address] [place] [address] Dr. Ashlie Hills PLT 109 103/ul Critically low 150-450 [facility] Comment on above: Performed By: #### C BC #### [facility] [address] [place] [address] Dr. Ashlie Hills RBC 5.47 106/ul Critically high 4.20-5.40 [facility] Comment on above: Performed By: #### C BC #### [facility] [address] [place] [address] Dr. Ashlie Hills WBC 9.4 103/ul Normal 4.0-11.0 [facility] Comment on above: Performed By: #### C BC #### [facility] [address] [place] [address] Dr. Ashlie Hills PROF 14(COMP METB)on 023 Albumin [Mass/Vol] 2.9 g/dL Critically low 3.4-5.0 [facility] Comment on above: Performed By: #### C BC #### [facility] [address] [place] [address] Dr. Ashlie Hills Albumin/Globulin [Mass ratio] 0.6 {ratio} Normal [facility] Comment on above: Performed By: #### C BC #### [facility] [address] [place] [address] Dr. Ashlie Hills ALP [Catalytic activity/Vol] 64 U/L Normal 46-116 [facility] Comment on above: Performed By: #### C BC #### [facility] [address] [place] [address] Dr. Ashlie Hills ALT [Catalytic activity/Vol] 16 U/L Normal 14-59 [facility] Comment on above: Performed By: #### C BC #### [facility] [address] [place] [address] Dr. Ashlie Hills Anion gap [Moles/Vol] 9.6 mmol/L Normal [facility] Comment on above: Performed By: #### C BC #### [facility] [address] [address] [address] Ashlie Hills AST [Catalytic activity/Vol] 16 U/L Normal 15-37 [facility] Comment on above: Performed By: #### C BC #### [facility] [address] [address] [address] Ashlie Hills Bilirubin [Mass/Vol] 0.5 mg/dL Normal 0.2-1.0 [facility] Comment on above: Performed By: #### C BC #### [facility] [address] [address] [address] Ashlie Hills Calcium [Mass/Vol] 8.7 mg/dL Normal 8.5-10.1 [facility] Comment on above: Performed By: #### C BC #### [facility] [address] [address] [address] Ashlie Hills Chloride [Moles/Vol] 103 mmol/L Normal 98-107 [facility] Comment on above: Performed By: #### C BC #### [facility] [address] [address] [address] Ashlie Hills CO2 [Moles/Vol] 30.7 mmol/L Normal 21.0-32.0 [facility] Comment on above: Performed By: #### C BC #### [facility] [address] [address] [address] Ashlie Hills Creatinine [Mass/Vol] 0.96 mg/dL Normal 0.55-1.02 [facility] Comment on above: Performed By: #### C BC #### [facility] [address] [address] [address] Ashlie Hills EGFR-AF UZBEK >60 Normal >=60 [facility] Comment on above: Performed By: #### C BC #### [facility] [address] [address] [address] Ashlie Hills EGFR-NON AF UZBEK >60 Normal >=60 [facility] Comment on above: Performed By: #### C BC #### [facility] [address] [address] [address] Ashlie Hills Globulin (S) [Mass/Vol] 4.7 g/dL Normal [facility] Comment on above: Performed By: #### C BC #### [facility] [address] [address] [address] Ashlie iHlls Glucose [Mass/Vol] 170 mg/dL Critically high 74-106 T [facility] Comment on above: Performed By: #### C BC #### [facility] [address] [address] [address] Ashlie Hills Potassium [Moles/Vol] 4.3 mmol/L Normal 3.5-5.1 [facility] Comment on above: Performed By: #### C BC #### [facility] [address] [place] [address] Dr. Ashlie Hills Protein [Mass/Vol] 7.6 g/dL Normal 6.4-8.2 [facility] Comment on above: Performed By: #### C BC #### [facility] [address] [place] [address] Dr. Ashlie Hills Sodium [Moles/Vol] 139 mmol/L Normal 136-145 [facility] Comment on above: Performed By: #### C BC #### [facility] [address] [place] [address] Dr. Ashlie Hills Urea nitrogen [Mass/Vol] 16.0 mg/dL Normal 7.0-18.0 [facility] Comment on above: Performed By: #### C BC #### [facility] [address] [place] [address] Dr. Ashlie Hills Urea nitrogen/Creatinine [Mass ratio] 16.7 mg/mg Normal [facility] Comment on above: Performed By: #### C BC #### [facility] [address] [place] [address] Dr. Ashlie Hills SYMPTOMATIC COVID-19 ANTIGEN on 12-04-2022 EUA Statement SEE BELOW Normal [facility] Comment on above: Result Comment: [...] sooner. Performed By: #### C VDAGS #### [facility] [address] [place] [address] Dr. Ashlie Hills SARS-CoV-2 (COVID-19) RNA MADDY+probe Ql (Unsp spec) Negative Normal NEGATIVE [facility] Comment on above: Performed By: #### C VDAGS #### [facility] [address] [place] [address] Dr. Ashlie Hills TROPONIN, HIGH SENSITIVITYon 12-04-2022 HSTROP 8.9 pg/mL Normal 4.0-51.3 [facility] Comment on above: Result Comment: CUT- OFF POINTS HAVE BEEN ESTABLISHED BASED ON THE FOURTH UNIVERSAL DEFINITIONS OF MYOCARDIAL INFARCTION. THE UPPER REFERENCE LIMIT (URL) OF TROPONIN, DEFINED THE 99TH PERCENTILE OF cTnI DISTRIBUTION IN A REFERENCE POPULATION, HAS BEEN CONFIRMED THE DECISION THRESHOLD FOR OR DIAGNOSIS. Performed By: #### P OCGLUC #### [facility] [address] [place] [address] Dr. Ashlie Hills MICROALBUMIN, RAND URon - mALB 35.8 mg/dL Critically high <=30.0 [facility] Comment on above: Performed By: #### C VDAGS #### [facility] [address] [place] [address] Dr. Ashlie Hills UA RANDOM W/MICROSCOPICon BACTERIA NONE SEEN Normal NONE SEEN [facility] Comment on above: Performed By: #### C VDAGS #### [facility] [address] [place] [address] Dr. Ashlie Hills Bilirubin Ql (U) Negative Normal NEGATIVE [facility] Comment on above: Performed By: #### C VDAGS #### [facility] [address] [place] [address] Dr. Ashlie Hills CAST SEEN Abnormal NONE SEEN [facility] Comment on above: Performed By: #### C VDAGS #### [facility] [address] [place] [address] Dr. Ashlie Hills Clarity (U) CLEAR Normal CLEAR [facility] Comment on above: Performed By: #### C VDAGS #### [facility] [address] [place] [address] Dr. Ashlie Hills Color (U) YELLOW Normal YELLOW [facility] Comment on above: Performed By: #### C VDAGS #### [facility] [address] [place] [address] Dr. Ashlie Hills Crystals LM Nom (Urine sed) NONE SEEN Normal NONE SEEN [facility] Comment on above: Performed By: #### C VDAGS #### [facility] [address] [place] [address] Dr. Ashlie Hills Epithelial cells LM Ql (Urine sed) MODERATE Abnormal NONE SEEN /RARE [facility] Comment on above: Performed By: #### C VDAGS #### [facility] [address] [place] [address] Dr. Ashlie Hills Glucose Ql (U) Negative Normal NEGATIVE [facility] Comment on above: Performed By: #### C VDAGS #### [facility] [address] [place] [address] Dr. Ashlie Hills Hemoglobin Ql (U) TRACE-INTACT Abnormal NEGATIVE [facility] Comment on above: Performed By: #### C VDAGS #### [facility] [address] [place] [address] Dr. Ashlie Hills Ketones Ql (U) Negative Normal NEGATIVE [facility] Comment on above: Performed By: #### C VDAGS #### [facility] [address] [place] [address] Dr. Ashlie Hills LEUKOCYTES Negative Normal NEGATIVE [facility] Comment on above: Performed By: #### C VDAGS #### [facility] [address] [place] [address] Dr. Ashlie Hills MUCOUS NONE SEEN Normal NONE SEEN [facility] Comment on above: Performed By: #### C VDAGS #### [facility] [address] [place] [address] Dr. Ashlie Hills Nitrite Ql (U) Negative Normal NEGATIVE [facility] Comment on above: Performed By: #### C VDAGS #### [facility] [address] [place] [address] Dr. Ashlie Hills pH (U) 5.0 [pH] Normal 5-9 [facility] Comment on above: Performed By: #### C VDAGS #### [facility] [address] [place] [address] Dr. Ashlie Hills RBC 0-2 Normal 0-2 [facility] Comment on above: Performed By: #### C VDAGS #### [facility] [address] [place] [address] Dr. Ashlie Hills SPEC GRAVITY 1.030 Abnormal 1.005-<=1.025 [facility] Comment on above: Performed By: #### C VDAGS #### [facility] [address] [place] [address] Dr. Ashlie Hills UA PROTEIN 100 mg/dl Abnormal NEGATIVE/ TRACE [facility] Comment on above: Performed By: #### C VDAGS #### [facility] [address] [place] [address] Dr. Ashlie Hills Urobilinogen Qn (U) 0.2 {Little'U}/dL Normal 0.2 - 1. 0 [facility] Comment on above: Performed By: #### C VDAGS #### [facility] [address] [place] [address] Dr. Ashlie Hills WBC NONE SEEN Normal NONE SEEN [facility] Comment on above: Performed By: #### C VDAGS #### [facility] [address] [place] [address] Dr. Ashlie Hills CBC AUTO DIFFon 05-17-2023 BASO # 0.0 103/ul Normal 0.0-0.1 [facility] Comment on above: Performed By: #### C BC #### [facility] [address] [address] [address] Ashlie Hills Basophils/100 WBC (Bld) 0.3 % Normal 0.2-2.0 [facility] Comment on above: Performed By: #### C BC #### [facility] [address] [address] [address] Ashlie Hills EO # 0.4 103/ul Normal 0.0-0.7 [facility] Comment on above: Performed By: #### C BC #### [facility] [address] [place] [address] Dr. Ashlie Hills Eosinophils/100 WBC (Bld) 3.0 % Normal 0.9-7.0 [facility] Comment on above: Performed By: #### C BC #### [facility] [address] [place] [address] Dr. Ashlie Hills Erythrocyte distribution width (RBC) [Ratio] 15.3 % Critically high 11.0-15.0 [facility] Comment on above: Performed By: #### C BC #### [facility] [address] [place] [address] Dr. Ashlie Hills Hematocrit (Bld) [Volume fraction] 52.4 % Critically high 36.0-48.0 [facility] Comment on above: Performed By: #### C BC #### [facility] [address] [place] [address] Dr. Ashlie Hills Hemoglobin (Bld) [Mass/Vol] 16.8 g/dL Critically high 12.0-16.0 [facility] Comment on above: Performed By: #### C BC #### [facility] [address] [place] [address] Dr. Ashlie Hills IG # 0.04 10e3/ul Critically high 0.00-0.03 [facility] Comment on above: Performed By: #### C BC #### [facility] [address] [place] [address] Dr. Ashlie Hills IG % 0.3 % Normal 0.0-0.5 [facility] Comment on above: Performed By: #### C BC #### [facility] [address] [place] [address] Dr. Ashlie Hills LYMPH # 4.5 103/ul Critically high 1.2-3.8 [facility] Comment on above: Performed By: #### C BC #### [facility] [address] [place] [address] Dr. Ashlie Hills Lymphocytes/100 WBC (Bld) 33.2 % Normal 20.5-60.0 [facility] Comment on above: Performed By: #### C BC #### [facility] [address] [place] [address] Dr. Ashlie Hills MANUAL DIFF REQ NO Normal [facility] Comment on above: Performed By: #### C BC #### [facility] [address] [place] [address] Dr. Ashlie Hills MCH (RBC) [Entitic mass] 28.0 pg Normal 26.7-34.0 [facility] Comment on above: Performed By: #### C BC #### [facility] [address] [place] [address] Dr. Ashlie Hills MCHC (RBC) [Mass/Vol] 32.1 g/dL Normal 29.9-35.2 [facility] Comment on above: Performed By: #### C BC #### [facility] [address] [place] [address] Dr. Ashlie Hills MCV (RBC) [Entitic vol] 87.3 fL Normal 81.0-99.0 [facility] Comment on above: Performed By: #### C BC #### [facility] [address] [place] [address] Dr. Ashlie Hills MONO # 0.8 103/ul Normal 0.3-0.8 [facility] Comment on above: Performed By: #### C BC #### [facility] [address] [place] [address] Dr. Ashlie Hills Monocytes/100 WBC (Bld) 5.7 % Normal 1.7-12.0 [facility] Comment on above: Performed By: #### C BC #### [facility] [address] [address] [address] Ashlie Hills NEUT # 7.8 103/ul Critically high 1.4-6.5 [facility] Comment on above: Performed By: #### C BC #### [facility] [address] [address] [address] Ashlie Hills Neutrophils/100 WBC (Bld) 57.5 % Normal 43.0-75.0 [facility] Comment on above: Performed By: #### C BC #### [facility] [address] [place] [address] Dr. Ashlie Hills Platelet mean volume (Bld) [Entitic vol] 12.0 fL Normal 9.5-13.5 [facility] Comment on above: Performed By: #### C BC #### [facility] [address] [address] [address] Ashlie Hills PLT 152 103/ul Normal 150-450 [facility] Comment on above: Performed By: #### C BC #### [facility] [address] [place] [address] Dr. sAhlie Hills RBC 6.00 106/ul Critically high 4.20-5.40 [facility] Comment on above: Performed By: #### C BC #### [facility] [address] [place] [address] Dr. Ashlie Hills WBC 13.6 103/ul Critically high 4.0-11.0 [facility] Comment on above: Performed By: #### C BC #### [facility] [address] [place] [address] Dr. Ashlie Hills LIPID PROFILEon 11-22-2022 CHOL-HDL RATIO NORM SEE BELOW Normal [facility] Comment on above: Result Comment: 3.3 - 4.4 LOW RISK 4.4 - 7.1 AVERAGE RISK 7.1 - 11.0 MODERATE RISK >11.0 HIGH RISK Performed By: #### C BC #### [facility] [address] [address] [address] Ashlie Hills Cholesterol [Mass/Vol] 139 mg/dL Normal <=200 [facility] Comment on above: Performed By: #### C BC #### [facility] [address] [address] [address] Ashlie Hills Cholesterol in HDL [Mass/Vol] 35 mg/dL Critically low 40-60 [facility] Comment on above: Performed By: #### C BC #### [facility] [address] [address] [address] Ashlie Hills Cholesterol in LDL [Mass/Vol] 67.4 mg/dL Normal [facility] Comment on above: Performed By: #### C BC #### [facility] [address] [address] [address] Ashlie Hills Cholesterol.total/Chol esterol in HDL [Mass ratio] 4.0 {ratio} Normal [facility] Comment on above: Performed By: #### C BC #### [facility] [address] [address] [address] Ashlie Hills HDL NORMAL > or = 60 mg/dl - LOW CARDIOVASCULAR RISK <40 mg/dl - HIGH CARDIOVASCULAR RISK Normal [facility] Comment on above: Performed By: #### C BC #### [facility] [address] [address] [address] Ashlie Hills LDL CALC NORMAL SEE BELOW Normal [facility] Comment on above: Result Comment: <100 mg/dl OPTIMAL 100 - 129 mg/dl NEAR OR ABOVE OPTIMAL 130 - 159 mg/dl BORDERLINE HIGH 160 - 189 mg/dl HIGH >190 mg/dl VERY HIGH Performed By: #### C BC #### [facility] [address] [address] [address] Ashlie Hills Triglyceride [Mass/Vol] 183 mg/dL Critically high <=150 [facility] Comment on above: Performed By: #### C BC #### [facility] [address] [address] [address] Ashlie Hills VLDL CALC 36.6 mg/dL Normal [facility] Comment on above: Performed By: #### C BC #### [facility] [address] [place], [place] [address] Dr. Ashlie Hills MG MAMM SCREEN 3D ALEX CADon 11-22-2022 MG MAMM SCREEN 3D ALEX CAD Patient: MITZI MACIAS Exam Date: 11/22/2022 : 1970 Gender:F Ordering : SAYDA MCKAYLA [employer]AS [employer] Admission #: [id number] Family : Order #: [id number] CLICK HERE TO VIEW EXAM RADIOLOGY REPORT [...] unknown cancer at age 75. LOCATION: [facility] BREAST COMPOSITION: Almost entirely fatty. FINDINGS: [...] M.D. on 11/22/2022 at 12:09 Normal [facility] PROF 14(COMP METB)on 023 Albumin [Mass/Vol] 3.0 g/dL Critically low 3.4-5.0 [facility] Comment on above: Performed By: #### C BC #### [facility] [address] [place], [place] [address] Dr. Ashlie Hills Albumin/Globulin [Mass ratio] 0.6 {ratio} Normal [facility] Comment on above: Performed By: #### C BC #### [facility] [address] [address] [address] Ashlie Hills ALP [Catalytic activity/Vol] 68 U/L Normal 46-116 [facility] Comment on above: Performed By: #### C BC #### [facility] [address] [address] [address] Ashlie Hills ALT [Catalytic activity/Vol] 14 U/L Normal 14-59 [facility] Comment on above: Performed By: #### C BC #### [facility] [address] [place] [address] Dr. Ashlie Hills Anion gap [Moles/Vol] 12.1 mmol/L Normal [facility] Comment on above: Performed By: #### C BC #### [facility] [address] [place] [address] Dr. Ashlie Hills AST [Catalytic activity/Vol] 9 U/L Critically low 15-37 [facility] Comment on above: Performed By: #### C BC #### [facility] [address] [place] [address] Dr. Ashlie Hills Bilirubin [Mass/Vol] 0.4 mg/dL Normal 0.2-1.0 [facility] Comment on above: Performed By: #### C BC #### [facility] [address] [place] [address] Dr. Ashlie Hills Calcium [Mass/Vol] 9.0 mg/dL Normal 8.5-10.1 [facility] Comment on above: Performed By: #### C BC #### [facility] [address] [place] [address] Dr. Ashlie Hills Chloride [Moles/Vol] 105 mmol/L Normal 98-107 [facility] Comment on above: Performed By: #### C BC #### [facility] [address] [place] [address] Dr. Ashlie Hills CO2 [Moles/Vol] 30.7 mmol/L Normal 21.0-32.0 [facility] Comment on above: Performed By: #### C BC #### [facility] [address] [address] [address] Ashlie Hills Creatinine [Mass/Vol] 0.77 mg/dL Normal 0.55-1.02 [facility] Comment on above: Performed By: #### C BC #### [facility] [address] [address] [address] Ashlie Hills EGFR-AF UZBEK >60 Normal >=60 [facility] Comment on above: Performed By: #### C BC #### [facility] [address] [place] [address] Dr. Ashlie Hills EGFR-NON AF UZBEK >60 Normal >=60 [facility] Comment on above: Performed By: #### C BC #### [facility] [address] [place] [address] Dr. Ashlie Hills Globulin (S) [Mass/Vol] 4.8 g/dL Normal [facility] Comment on above: Performed By: #### C BC #### [facility] [address] [place] [address] Dr. Ashlie Hills Glucose [Mass/Vol] 162 mg/dL Critically high 74-106 [facility] Comment on above: Performed By: #### C BC #### [facility] [address] [place] [address] Dr. Ashlie Hills Potassium [Moles/Vol] 3.8 mmol/L Normal 3.5-5.1 [facility] Comment on above: Performed By: #### C BC #### [facility] [address] [place] [address] Dr. Ashlie Hills Protein [Mass/Vol] 7.8 g/dL Normal 6.4-8.2 [facility] Comment on above: Performed By: #### C BC #### [facility] [address] [place] [address] Dr. Ashlie Hills Sodium [Moles/Vol] 144 mmol/L Normal 136-145 [facility] Comment on above: Performed By: #### C BC #### [facility] [address] [place] [address] Dr. Ashlie Hills Urea nitrogen [Mass/Vol] 24.0 mg/dL Critically high 7.0-18.0 [facility] Comment on above: Performed By: #### C BC #### [facility] [address] [place] [address] Dr. Ashlie Hills Urea nitrogen/Creatinine [Mass ratio] 31.2 mg/mg Normal [facility] Comment on above: Performed By: #### C BC #### [facility] [address] [place] [address] Dr. Ashlie Hills CBC AUTO DIFFon 10-05-2022 BASO # 0.1 103/ul Normal 0.0-0.1 [facility] Comment on above: Performed By: #### C BC #### [facility] [address] [place] [address] Dr. Ashlie Hills Basophils/100 WBC (Bld) 0.6 % Normal 0.2-2.0 [facility] Comment on above: Performed By: #### C BC #### [facility] [address] [place] [address] Dr. Ashlie Hills EO # 0.3 103/ul Normal 0.0-0.7 [facility] Comment on above: Performed By: #### C BC #### [facility] [address] [place] [address] Dr. Ashlie Hills Eosinophils/100 WBC (Bld) 2.1 % Normal 0.9-7.0 [facility] Comment on above: Performed By: #### C BC #### [facility] [address] [place] [address] Dr. Ashlie Hills Erythrocyte distribution width (RBC) [Ratio] 15.9 % Critically high 11.0-15.0 [facility] Comment on above: Performed By: #### C BC #### [facility] [address] [place] [address] Dr. Ashlie Hills Hematocrit (Bld) [Volume fraction] 51.8 % Critically high 36.0-48.0 [facility] Comment on above: Performed By: #### C BC #### [facility] [address] [place] [address] Dr. Ashlie Hills Hemoglobin (Bld) [Mass/Vol] 16.6 g/dL Critically high 12.0-16.0 [facility] Comment on above: Performed By: #### C BC #### [facility] [address] [place] [address] Dr. Ashlie Hills IG # 0.03 10e3/ul Normal 0.00-0.03 [facility] Comment on above: Performed By: #### C BC #### [facility] [address] [place] [address] Dr. Ashlie Hills IG % 0.2 % Normal 0.0-0.5 [facility] Comment on above: Performed By: #### C BC #### [facility] [address] [place] [address] Dr. Ashlie Hills LYMPH # 3.9 103/ul Critically high 1.2-3.8 [facility] Comment on above: Performed By: #### C BC #### [facility] [address] [place] [address] Dr. Ashlie Hills Lymphocytes/100 WBC (Bld) 31.7 % Normal 20.5-60.0 [facility] Comment on above: Performed By: #### C BC #### [facility] [address] [place] [address] Dr. Ashlie Hills MANUAL DIFF REQ NO Normal [facility] Comment on above: Performed By: #### C BC #### [facility] [address] [place] [address] Dr. Ashlie Hills MCH (RBC) [Entitic mass] 27.9 pg Normal 26.7-34.0 [facility] Comment on above: Performed By: #### C BC #### [facility] [address] [place] [address] Dr. Ashlie Hills MCHC (RBC) [Mass/Vol] 32.0 g/dL Normal 29.9-35.2 [facility] Comment on above: Performed By: #### C BC #### [facility] [address] [place] [address] Dr. Ashlie Hills MCV (RBC) [Entitic vol] 87.1 fL Normal 81.0-99.0 [facility] Comment on above: Performed By: #### C BC #### [facility] [address] [place] [address] Dr. Ashlie Hills MONO # 0.7 103/ul Normal 0.3-0.8 [facility] Comment on above: Performed By: #### C BC #### [facility] [address] [address] [address] Ashlie Hills Monocytes/100 WBC (Bld) 5.8 % Normal 1.7-12.0 [facility] Comment on above: Performed By: #### C BC #### [facility] [address] [place] [address] Dr. Ashlie Hills NEUT # 7.3 103/ul Critically high 1.4-6.5 [facility] Comment on above: Performed By: #### C BC #### [facility] [address] [place] [address] Dr. Ashlie Hills Neutrophils/100 WBC (Bld) 59.6 % Normal 43.0-75.0 [facility] Comment on above: Performed By: #### C BC #### [facility] [address] [place] [address] Dr. Ashlie Hills Platelet mean volume (Bld) [Entitic vol] 11.7 fL Normal 9.5-13.5 [facility] Comment on above: Performed By: #### C BC #### [facility] [address] [place] [address] Dr. Ashlie Hills PLT 117 103/ul Critically low 150-450 [facility] Comment on above: Performed By: #### C BC #### [facility] [address] [place], [place] [address] Dr. Ashlie Hills RBC 5.95 106/ul Critically high 4.20-5.40 [facility] Comment on above: Performed By: #### C BC #### [facility] [address] [place] [address] Dr. Ashlie Hills WBC 12.3 103/ul Critically high 4.0-11.0 [facility] Comment on above: Performed By: #### C BC #### [facility] [address] [place] [address] ABD/PELV W CONon [...] RICCO PICKARD Date: 2022-10-05 13:13 Normal [facility] ER URINE PROFILEon 3 Bilirubin Ql (U) Negative Normal NEGATIVE [facility] Comment on above: Performed By: #### P OCGLUC #### [facility] [address] [place] [address] Dr. Ashlie Hills Clarity (U) CLEAR Normal CLEAR [facility] Comment on above: Performed By: #### P OCGLUC #### [facility] [address] [place] [address] Dr. Ashlie Hills Color (U) YELLOW Normal YELLOW [facility] Comment on above: Performed By: #### P OCGLUC #### [facility] [address] [place] [address] Dr. Ashlie HOBBS A micrscopic examination will be performed if indicated. Normal [facility] Comment on above: Performed By: #### P OCGLUC #### [facility] [address] [address] [address] Ashlie Hills Glucose Ql (U) Negative Normal NEGATIVE [facility] Comment on above: Performed By: #### P OCGLUC #### [facility] [address] [address] [address] Ashlie Hills Hemoglobin Ql (U) Negative Normal NEGATIVE [facility] Comment on above: Performed By: #### P OCGLUC #### [facility] [address] [address] [address] Ashlie Hills Ketones Ql (U) Negative Normal NEGATIVE [facility] Comment on above: Performed By: #### P OCGLUC #### [facility] [address] [place] [address] Dr. Ashlie Hills LEUKOCYTES Negative Normal NEGATIVE [facility] Comment on above: Performed By: #### P OCGLUC #### [facility] [address] [address] [address] Ashlie Hills Nitrite Ql (U) Negative Normal NEGATIVE [facility] Comment on above: Performed By: #### P OCGLUC #### [facility] [address] [place] [address] Dr. Ashlie Hills pH (U) 6.0 [pH] Normal 5-9 [facility] Comment on above: Performed By: #### P OCGLUC #### [facility] [address] [place] [address] Dr. Ashlie Hills Protein (U) [Mass/Vol] 100 mg/dL Abnormal NEGAT YURY/ TRACE [facility] Comment on above: Performed By: #### P OCGLUC #### [facility] [address] [place] [address] Dr. Ashlie Hills SPEC GRAVITY 1.010 Normal 1.005-<=1.025 [facility] Comment on above: Performed By: #### P OCGLUC #### [facility] [address] [address] [address] Ashlie Hills UR MICRO IND INDICATED Normal [facility] Comment on above: Performed By: #### P OCGLUC #### [facility] [address] [place] [address] Dr. Ashlie Hills Urobilinogen Qn (U) 1.0 {Little'U}/dL Normal 0.2 - 1. 0 [facility] Comment on above: Performed By: #### P OCGLUC #### [facility] [address] [place] [address] Dr. Ashlie Hills LIPASEon 10-05-2022 Lipase [Catalytic activity/Vol] 1771.0 U/L Critically high 73.0-393.0 [facility] Comment on above: Performed By: #### C BC #### [facility] [address] [place] [address] Dr. Ashlie Hills PREG HCG QUALon 10-05-2022 , QUAL Negative Normal NEGATIVE [facility] Comment on above: Performed By: #### P OCGLUC #### [facility] [address] [place] [address] Dr. Ashlie Hills PROF 14(COMP METB)on 023 Albumin [Mass/Vol] 3.2 g/dL Critically low 3.4-5.0 [facility] Comment on above: Performed By: #### C BC #### [facility] [address] [place] [address] Dr. Ashlie Hills Albumin/Globulin [Mass ratio] 0.7 {ratio} Normal [facility] Comment on above: Performed By: #### C BC #### [facility] [address] [place] [address] Dr. Ashlie Hills ALP [Catalytic activity/Vol] 70 U/L Normal 46-116 [facility] Comment on above: Performed By: #### C BC #### [facility] [address] [place] [address] Dr. Ashlie Hills ALT [Catalytic activity/Vol] 11 U/L Critically low 14-59 [facility] Comment on above: Performed By: #### C BC #### [facility] [address] [address] [address] Ashlie Hills Anion gap [Moles/Vol] 10.3 mmol/L Normal [facility] Comment on above: Performed By: #### C BC #### [facility] [address] [address] [address] Ashlie Hills AST [Catalytic activity/Vol] 11 U/L Critically low 15-37 [facility] Comment on above: Performed By: #### C BC #### [facility] [address] [address] [address] Ashlie Hills Bilirubin [Mass/Vol] 0.9 mg/dL Normal 0.2-1.0 [facility] Comment on above: Performed By: #### C BC #### [facility] [address] [place] [address] Dr. Ashlie Hills Calcium [Mass/Vol] 9.3 mg/dL Normal 8.5-10.1 [facility] Comment on above: Performed By: #### C BC #### [facility] [address] [place] [address] Dr. Ashlie Hills Chloride [Moles/Vol] 105 mmol/L Normal 98-107 [facility] Comment on above: Performed By: #### C BC #### [facility] [address] [place] [address] Dr. Ashlie Hills CO2 [Moles/Vol] 30.6 mmol/L Normal 21.0-32.0 [facility] Comment on above: Performed By: #### C BC #### [facility] [address] [place] [address] Dr. Ashlie Hills Creatinine [Mass/Vol] 0.62 mg/dL Normal 0.55-1.02 [facility] Comment on above: Performed By: #### C BC #### [facility] [address] [address] [address] Ashlie Hills EGFR-AF UZBEK >60 Normal >=60 [facility] Comment on above: Performed By: #### C BC #### [facility] [address] [place] [address] Dr. Ashlie Hills EGFR-NON AF UZBEK >60 Normal >=60 [facility] Comment on above: Performed By: #### C BC #### [facility] [address] [place] [address] Dr. Ashlie Hills Globulin (S) [Mass/Vol] 4.6 g/dL Normal [facility] Comment on above: Performed By: #### C BC #### [facility] [address] [place] [address] Dr. Ashlie Hills Glucose [Mass/Vol] 85 mg/dL Normal 74-106 [facility] Comment on above: Performed By: #### C BC #### [facility] [address] [place] [address] Dr. Ashlie Hills Potassium [Moles/Vol] 3.9 mmol/L Normal 3.5-5.1 [facility] Comment on above: Performed By: #### C BC #### [facility] [address] [place] [address] Dr. Ashlie Hills Protein [Mass/Vol] 7.8 g/dL Normal 6.4-8.2 [facility] Comment on above: Performed By: #### C BC #### [facility] [address] [place] [address] Dr. Ashlie Hills Sodium [Moles/Vol] 142 mmol/L Normal 136-145 [facility] Comment on above: Performed By: #### C BC #### [facility] [address] [place] [address] Dr. Ashlie Hills Urea nitrogen [Mass/Vol] 12.0 mg/dL Normal 7.0-18.0 [facility] Comment on above: Performed By: #### C BC #### [facility] [address] [place] [address] Dr. Ashlie Hills Urea nitrogen/Creatinine [Mass ratio] 19.4 mg/mg Normal [facility] Comment on above: Performed By: #### C BC #### [facility] [address] [place] [address] Dr. Ashlie Hills URINE MICROSCOPIC ONLYon BACTERIA TRACE Abnormal NONE SEEN [facility] Comment on above: Performed By: #### P OCGLUC #### [facility] [address] [place] [address] Dr. Ashlie Hills Bacteria identified Cx Nom (U) NOT INDICATED Normal [facility] Comment on above: Performed By: #### P OCGLUC #### [facility] [address] [place] [address] Dr. Ashlie Hills CAST NONE SEEN Normal NONE SEEN [facility] Comment on above: Performed By: #### P OCGLUC #### [facility] [address] [place] [address] Dr. Ashlie Hills Crystals LM Nom (Urine sed) NONE SEEN Normal NONE SEEN [facility] Comment on above: Performed By: #### P OCGLUC #### [facility] [address] [place] [address] Dr. Ashlie Hills Epithelial cells LM Ql (Urine sed) MODERATE Abnormal NONE SEEN /RARE [facility] Comment on above: Performed By: #### P OCGLUC #### [facility] [address] [place] [address] Dr. Ashlie Hills MUCOUS NONE SEEN Normal NONE SEEN [facility] Comment on above: Performed By: #### P OCGLUC #### [facility] [address] [place] [address] Dr. Ashlie Hills RBC 0-2 Normal 0-2 [facility] Comment on above: Performed By: #### P OCGLUC #### [facility] [address] [place] [address] Dr. Ashlie Hills WBC 0-2 Abnormal NONE SEEN [facility] Comment on above: Performed By: #### P OCGLUC #### [facility] [address] [place] [address] Dr. Ashlie Hills Covid-19 PCR ([facility])on 09-06 SARS-CoV-2 (COVID-19) RNA MADDY+probe Ql (Unsp spec) Detected Abnormal NOT DETECTED [facility] Comment on above: Result Comment: This test is not yet approved or cleared by the [place] FDA. When there are no FDA-approved or cleared tests available, and other criteria are met, FDA can make tests available under an emergency access mechanism called an Emergency Use Authorization (EUA). The EUA for this test is supported by the [place] of Health and Human Service's declaration that [...] used). Performed By: #### C VDAGS #### [facility] [address] [place] [address] Dr. Ashlie Hills IN[facility] Normal [facility] Comment on above: Result Comment: Nega tive for Flu A protein angiten. Infection due to Flu A cannot be ruled out. Flu A angiten in the sample may be below the detection limit of the test. Performed By: #### I NFLUAB #### [facility] [address] [place] [address] Dr. Ashlie Hills INFLUBNEG SEE BELOW Normal [facility] Comment on above: Result Comment: Nega tive for Flu B protein antigen. Infection due to Flu B cannot be ruled out. Flu B antigen in the sample may be below the detection limit of the test. Performed By: #### I NFLUAB #### [facility] [address] [place] [address] Dr. Ashlie Hills INFLUENZA A AG Negative Normal NEGATIVE SEE COMMENT [facility] Comment on above: Performed By: #### I NFLUAB #### [facility] [address] [place] [address] Dr. Ashlie Hills INFLUENZA B AG Negative Normal NEGATIVE SEE COMMENT [facility] Comment on above: Performed By: #### I NFLUAB #### [facility] [address] [place] [address] ABD/PELV W CONon [...] to at least 10/21/2018, unchanged. https://www.ncbi.nlm .nih.gov/pmc/article s/[email or web address]/ Electronically authenticated by: COLLIN HUERTAS Date: 2022-07-27 14:56 Normal [facility] CREATININEon 07-18-2022 Creatinine [Mass/Vol] 0.81 mg/dL Normal 0.55-1.02 [facility] Comment on above: Performed By: #### C BC #### [facility] [address] [place] [address] Dr. Ashlie Hills EGFR-AF UZBEK >60 Normal >=60 [facility] Comment on above: Performed By: #### C BC #### [facility] [address] [place] [address] Dr. Ashlie Hills EGFR-NON AF UZBEK >60 Normal >=60 [facility] Comment on above: Performed By: #### C BC #### [facility] [address] [place] [address] LOW EXT W [...] PATRICIA VELOZ Date: 2022-07-18 14:58 Normal [facility] XR KNEE LT 1_2 Von 3 [...] HATTIE BAUTISTA Date: 2022-07-18 12:00 Normal [facility] Covid-19 PCR ([facility])on 06-09 SARS-CoV-2 (COVID-19) RNA MADDY+probe Ql (Unsp spec) Not detected Normal NOT DETECTED [facility] Comment on above: Result Comment: This test is not yet approved or cleared by the [place] FDA. When there are no FDA-approved or cleared tests available, and other criteria are met, FDA can make tests available under an emergency access mechanism called an Emergency Use Authorization (EUA). The EUA for this test is supported by the [employer] of Health and Human Service's (HHS's) declaration [...] SARS-CoV-2. Performed By: #### C BC #### [facility] [address] [place] [address] Dr. Ashlie Hills INFLUENZA A AND B AGon 07-06 INFLUANE SEE BELOW Normal [facility] Comment on above: Result Comment: Nega tive for Flu A protein angiten. Infection due to Flu A cannot be ruled out. Flu A angiten in the sample may be below the detection limit of the test. Performed By: #### C BC #### [facility] [address] [place] [address] Dr. Ashlie Hills INFLUBNEG SEE BELOW Normal [facility] Comment on above: Result Comment: Nega tive for Flu B protein antigen. Infection due to Flu B cannot be ruled out. Flu B antigen in the sample may be below the detection limit of the test. Performed By: #### C BC #### [facility] [address] [place] [address] Dr. Ashlie Hills INFLUENZA A AG Negative Normal NEGATIVE SEE COMMENT [facility] Comment on above: Performed By: #### C BC #### [facility] [address] [place] [address] Dr. Ashlie Hills INFLUENZA B AG Negative Normal NEGATIVE SEE COMMENT [facility] Comment on above: Performed By: #### C BC #### [facility] [address] [place] [address] Dr. Ashlie Hills POINT OF CARE GLUCOSEon - Glucose [Mass/Vol] 108 mg/dL Critically high 74-106 [facility] Comment on above: Performed By: #### C BC #### [facility] [address] [place] [address] Dr. Ashlie Hills RAGHU by IFAon 03-07-2022 Antinuclear Antibodies, IFA Negative Normal [facility] Comment on above: Result Comment: Nega tive <1:80 Borderline 1:80 Positive >1:80 ICAP nomenclature: AC-0 For more information about Hep-2 cell patterns use ANApatterns.org, the official website for the International Consensus on Antinuclear Antibody (RAGHU) Patterns (ICAP). Performed By: #### A ROSE #### [facility] [address] [place] [address] Dr. Ashlie Hills IMMUNOFIXATION (TREVON), URINEo n 03-07-2022 TREVON Interpretation:U Comment Normal [facility] Comment on above: Result Comment: No m onoclonality detected. Performed By: #### C BC #### [facility] [address] [place] [address] Dr. Ashlie Hills IMMUNOFIXATION(TREVON),PROTEIN ELEC(PE),[facility] 03-07-2022 Albumin [Mass/Vol] 3.0 g/dL Normal 2.9-4.4 [facility] Comment on above: Performed By: #### I NFLUAB #### [facility] [address] [place] [address] Dr. Ashlie Hills Albumin/Globulin [Mass ratio] 0.8 {ratio} Normal 0.7-1.7 [facility] Comment on above: Performed By: #### I NFLUAB #### [facility] [address] [place] [address] Dr. Ashlie Hills Rejzb-6-Fimvsuun 0.3 g/dL Normal 0.0-0.4 [facility] Comment on above: Performed By: #### I NFLUAB #### [facility] [address] [place] [address] Dr. Ashlie Hills Kjrgl-8-Qydppnwm 1.0 g/dL Normal 0.4-1.0 [facility] Comment on above: Performed By: #### I NFLUAB #### [facility] [address] [place] [address] Dr. Ashlie Hills Beta Globulin 1.8 g/dL Critically high 0.7-1.3 [facility] Comment on above: Performed By: #### I NFLUAB #### [facility] [address] [place] [address] Dr. Ashlie Hills Free Sachse Lt Chains,S 45.2 mg/L Critically high 3.3-19.4 [facility] Comment on above: Performed By: #### I NFLUAB #### [facility] [address] [place] [address] Dr. Ashlie Hills Free Lambda Lt Chains,S 40.3 mg/L Critically high 5.7-26.3 [facility] Comment on above: Performed By: #### I NFLUAB #### [facility] [address] [address] [address] Ashlie Hills Gamma Globulin 0.8 g/dL Normal 0.4-1.8 [facility] Comment on above: Performed By: #### I NFLUAB #### [facility] [address] [place] [address] Dr. Ashlie Hills Globulin (S) [Mass/Vol] 3.9 g/dL Normal 2.2-3.9 [facility] Comment on above: Performed By: #### I NFLUAB #### [facility] [address] [place] [address] Dr. Ashlie Hills Immunofixation Result, Serum Comment Normal [facility] Comment on above: Result Comment: No m onoclonality detected. Performed By: #### I NFLUAB #### [facility] [address] [place] [address] Dr. Ashlie Hills Immunoglobulin A, Qn, Serum 776 mg/dL Critically high 87-352 [facility] Comment on above: Performed By: #### I NFLUAB #### [facility] [address] [place] [address] Dr. Ashlie Hills Immunoglobulin G, Qn, Serum 955 mg/dL Normal 586-1602 [facility] Comment on above: Performed By: #### I NFLUAB #### [facility] [address] [place] [address] Dr. Ashlie Hills Immunoglobulin M, Qn, Serum 39 mg/dL Normal 26-217 [facility] Comment on above: Performed By: #### I NFLUAB #### [facility] [address] [place] [address] Dr. Ashlie Hills Sachse/Lambda Ratio, S 1.12 Normal 0.26-1.65 [facility] Comment on above: Performed By: #### I NFLUAB #### [facility] [address] [place] [address] Dr. Ashlie Hills M-Bright Not Observed Normal Not Observed [facility] Comment on above: Performed By: #### I NFLUAB #### [facility] [address] [place] [address] Dr. Ashlie Hills PDF . Normal [facility] Comment on above: Performed By: #### I NFLUAB #### [facility] [address] [place] [address] Dr. Ashlie Hills Please note: Comment Normal [facility] Comment on above: Result Comment: Prot ein electrophoresis scan will follow via computer, mail, or marketing financial analyst delivery. Performed By: #### I NFLUAB #### [facility] [address] [place] [address] Dr. Ashlie Hills Protein [Mass/Vol] 6.9 g/dL Normal 6.0-8.5 [facility] Comment on above: Performed By: #### I NFLUAB #### [facility] [address] [place] [address] Dr. Ashlie Hills C-PEPTIDE, SERUMon C-Peptide, Serum 3.1 ng/mL Normal 1.1-4.4 [facility] Comment on above: Result Comment: C-Pe ptide reference interval is for fasting patients. Performed By: #### C PEPT #### [facility] [address] [place] [address] Dr. Ashlie Hills HEP B SURFACE ANTIGEN SCREEN on 03-04-2022 HBsAg Screen Negative Normal Negative [facility] Comment on above: Performed By: #### C BC #### [facility] [address] [place] [address] Dr. Ashlie Hills HEPATITIS C VIRUS AB W/ REFL EX QUANTon 03-04-2022 HCV AB <0.1 Normal 0.0-0.9 [facility] Comment on above: Performed By: #### I NFLUAB #### [facility] [address] [address] [address] Ashlie Hills Interpretation: Comment Normal [facility] Comment on above: Result Comment: Nega tive Not infected with HCV, unless recent infection is suspected or other evidence exists to indicate HCV infection. Performed By: #### I NFLUAB #### [facility] [address] [address] [address] Ashlie Hills MICROALBUMIN/ CREATININE RAT IOon 03-04-2022 Albumin, Urine 367.4 ug/mL Normal Not Estab. [facility] Comment on above: Performed By: #### C BC #### [facility] [address] [address] [address] Ashlie Hills Albumin/ Creatinine Ratio 239 mg/g creat Critically high 0-29 [facility] Comment on above: Result Comment: Norm al: 0 - 29 Moderately increased: 30 - 300 Severely increased: >300 Performed By: #### C BC #### [facility] [address] [address] [address] Ashlie Hills Creatinine, Urine 153.9 mg/dL Normal Not Estab. [facility] Comment on above: Performed By: #### C BC #### [facility] [address] [address] [address] Ashlie Hills VIT D 25-OH LABCORPon 2021 Vitamin D, 25-Hydroxy <4.0 Critically low 30.0-100.0 [facility] Comment on above: Result Comment: Graciela min D deficiency has been defined by the [place] [employer] and an Endocrine Society practice guideline as a level of serum 25-OH vitamin D less than 20 ng/mL (1,2). The Endocrine Society went on to further define vitamin D insufficiency as a level between 21 and 29 ng/mL (2). 1. IOM ([place] [employer]). 2010. Dietary reference intakes for calcium and D. [place]: The National Academies Press. 2. Lynda MF, [place], Leandra LOPEZ, et al. Evaluation, treatment, and prevention of vitamin D deficiency: an Endocrine Society clinical practice guideline. JCEM. 2010; 96(7):1911-30. Performed By: #### C BC #### [facility] [address] [place] [address] Dr. Ashlie Hills GLYCOHEMOGLOBIN A1Con 2021 ADA RECOMMENDATION SEE BELOW Normal [facility] Comment on above: Result Comment: ADA RECOMMENDED LIMIT 4.0 - 6.0 ADA THERAPEUTIC TARGET < 7.0 ACTION SUGGESTED > 7.0 Performed By: #### C VDAGS #### [facility] [address] [place] [address] Dr. Ashlie Hills Glucose [Mass/Vol] 295 mg/dL Normal [facility] Comment on above: Performed By: #### C VDAGS #### [facility] [address] [place] [address] Dr. Ashlie Hills HbA1c (Bld) [Mass fraction] 11.9 % Critically high 4.5-6.2 [facility] Comment on above: Performed By: #### C VDAGS #### [facility] [address] [place] [address] Dr. Ashlie Hills HEMOGRAM AND PLATELon 2021 Hematocrit (Bld) [Volume fraction] 56.3 % Critically high 36.0-48.0 [facility] Comment on above: Performed By: #### C VDAGS #### [facility] [address] [place] [address] Dr. Ashlie Hills Hemoglobin (Bld) [Mass/Vol] 18.0 g/dL Critically high 12.0-16.0 [facility] Comment on above: Performed By: #### C VDAGS #### [facility] [address] [place] [address] Dr. Ashlie Hills MCH (RBC) [Entitic mass] 29.5 pg Normal 26.7-34.0 [facility] Comment on above: Performed By: #### C VDAGS #### [facility] [address] [place] [address] Dr. Ashlie Hills MCHC (RBC) [Mass/Vol] 32.0 g/dL Normal 29.9-35.2 [facility] Comment on above: Performed By: #### C VDAGS #### [facility] [address] [address] [address] Ashlie Hills MCV (RBC) [Entitic vol] 92.1 fL Normal 81.0-99.0 [facility] Comment on above: Performed By: #### C VDAGS #### [facility] [address] [address] [address] Ashlie Hills PLT 123 103/ul Critically low 150-450 [facility] Comment on above: Performed By: #### C VDAGS #### [facility] [address] [address] [address] Ashlie Hills RBC 6.11 106/ul Critically high 4.20-5.40 [facility] Comment on above: Performed By: #### C VDAGS #### [facility] [address] [address] [address] Ashlie Hills WBC 16.4 103/ul Critically high 4.0-11.0 [facility] Comment on above: Performed By: #### C VDAGS #### [facility] [address] [address] [address] Ashlie Hills LIPID PROFILEon 03-03-2022 CHOL-HDL RATIO NORM SEE BELOW Normal [facility] Comment on above: Result Comment: 3.3 - 4.4 LOW RISK 4.4 - 7.1 AVERAGE RISK 7.1 - 11.0 MODERATE RISK >11.0 HIGH RISK Performed By: #### C VDAGS #### [facility] [address] [place] [address] Dr. Ashlie Hills Cholesterol [Mass/Vol] 159 mg/dL Normal <=200 [facility] Comment on above: Performed By: #### C VDAGS #### [facility] [address] [address] [address] Ashlie Hills Cholesterol in HDL [Mass/Vol] 40 mg/dL Normal 40-60 [facility] Comment on above: Performed By: #### C VDAGS #### [facility] [address] [address] [address] Ashlie Hills Cholesterol in LDL [Mass/Vol] 81.8 mg/dL Normal [facility] Comment on above: Performed By: #### C VDAGS #### [facility] [address] [address] [address] Ashlie Hills Cholesterol.total/Chol esterol in HDL [Mass ratio] 4.0 {ratio} Normal [facility] Comment on above: Performed By: #### C VDAGS #### [facility] [address] [address] [address] Ashlie Hills HDL NORMAL > or = 60 mg/dl - LOW CARDIOVASCULAR RISK <40 mg/dl - HIGH CARDIOVASCULAR RISK Normal [facility] Comment on above: Performed By: #### C VDAGS #### [facility] [address] [place] [address] Dr. Ashlie Hills LDL CALC NORMAL SEE BELOW Normal [facility] Comment on above: Result Comment: <100 mg/dl OPTIMAL 100 - 129 mg/dl NEAR OR ABOVE OPTIMAL 130 - 159 mg/dl BORDERLINE HIGH 160 - 189 mg/dl HIGH >190 mg/dl VERY HIGH Performed By: #### C VDAGS #### [facility] [address] [address] [address] Ashlie Hills Triglyceride [Mass/Vol] 186 mg/dL Critically high <=150 [facility] Comment on above: Performed By: #### C VDAGS #### [facility] [address] [address] [address] Ashlie Hills VLDL CALC 37.2 mg/dL Normal [facility] Comment on above: Performed By: #### C VDAGS #### [facility] [address] [address] [address] Ashlie Hills RENAL FUNCTION PANELon 03-03 Albumin [Mass/Vol] 3.1 g/dL Critically low 3.4-5.0 [facility] Comment on above: Performed By: #### C BC #### [facility] [address] [address] [address] Ashlie Hills Calcium [Mass/Vol] 9.2 mg/dL Normal 8.5-10.1 [facility] Comment on above: Performed By: #### C BC #### [facility] [address] [address] [address] Ashlie Hills Chloride [Moles/Vol] 102 mmol/L Normal 98-107 [facility] Comment on above: Performed By: #### C BC #### [facility] [address] [address] [address] Ashlie Hills CO2 [Moles/Vol] 31.9 mmol/L Normal 21.0-32.0 [facility] Comment on above: Performed By: #### C BC #### [facility] [address] [address] [address] Ashlie Hills Creatinine [Mass/Vol] 0.68 mg/dL Normal 0.55-1.02 [facility] Comment on above: Performed By: #### C BC #### [facility] [address] [place] [address] Dr. Ashlie Hills EGFR-AF UZBEK >60 Normal >=60 [facility] Comment on above: Performed By: #### C BC #### [facility] [address] [place] [address] Dr. Ashlie Hills EGFR-NON AF UZBEK >60 Normal >=60 [facility] Comment on above: Performed By: #### C BC #### [facility] [address] [place] [address] Dr. Ashlie Hills Glucose [Mass/Vol] 131 mg/dL Critically high 74-106 [facility] Comment on above: Performed By: #### C BC #### [facility] [address] [place] [address] Dr. Ashlie Hills Phosphate [Mass/Vol] 4.0 mg/dL Normal 2.6-4.7 [facility] Comment on above: Performed By: #### C BC #### [facility] [address] [place] [address] Dr. Ashlie Hills Potassium [Moles/Vol] 4.0 mmol/L Normal 3.5-5.1 [facility] Comment on above: Performed By: #### C BC #### [facility] [address] [place] [address] Dr. Ashlie Hills Sodium [Moles/Vol] 141 mmol/L Normal 136-145 [facility] Comment on above: Performed By: #### C BC #### [facility] [address] [place] [address] Dr. Ashlie Hills Urea nitrogen [Mass/Vol] 17.0 mg/dL Normal 7.0-18.0 [facility] Comment on above: Performed By: #### C BC #### [facility] [address] [place] [address] Dr. Ashlie Hills UA RANDOM W/MICROSCOPICon BACTERIA NONE SEEN Normal NONE SEEN [facility] Comment on above: Performed By: #### I NFLUAB #### [facility] [address] [place] [address] Dr. Ashlie Hills Bilirubin Ql (U) Negative Normal NEGATIVE [facility] Comment on above: Performed By: #### I NFLUAB #### [facility] [address] [place] [address] Dr. Ashlie Hills CAST NONE SEEN Normal NONE SEEN [facility] Comment on above: Performed By: #### I NFLUAB #### [facility] [address] [place] [address] Dr. Ashlie Hills Clarity (U) CLEAR Normal CLEAR [facility] Comment on above: Performed By: #### I NFLUAB #### [facility] [address] [place] [address] Dr. Ashlie Hills Color (U) YELLOW Normal YELLOW [facility] Comment on above: Performed By: #### I NFLUAB #### [facility] [address] [place] [address] Dr. Ashlie Hills Crystals LM Nom (Urine sed) NONE SEEN Normal NONE SEEN [facility] Comment on above: Performed By: #### I NFLUAB #### [facility] [address] [place] [address] Dr. Ashlie Hills Epithelial cells LM Ql (Urine sed) FEW Abnormal NONE SEEN /RARE [facility] Comment on above: Performed By: #### I NFLUAB #### [facility] [address] [address] [address] Ashlie Hills Glucose Ql (U) Negative Normal NEGATIVE [facility] Comment on above: Performed By: #### I NFLUAB #### [facility] [address] [address] [address] Ashlie Hills Hemoglobin Ql (U) Negative Normal NEGATIVE The [facility] Comment on above: Performed By: #### I NFLUAB #### [facility] [address] [address] [address] Ashlie Hills Ketones Ql (U) Negative Normal NEGATIVE [facility] Comment on above: Performed By: #### I NFLUAB #### [facility] [address] [place] [address] Dr. Ashlie Hills LEUKOCYTES Negative Normal NEGATIVE [facility] Comment on above: Performed By: #### I NFLUAB #### [facility] [address] [place] [address] Dr. Ashlie Hills MUCOUS NONE SEEN Normal NONE SEEN [facility] Comment on above: Performed By: #### I NFLUAB #### [facility] [address] [address] [address] Ashlie Hills Nitrite Ql (U) Negative Normal NEGATIVE [facility] Comment on above: Performed By: #### I NFLUAB #### [facility] [address] [place] [address] Dr. Ashlie Hills pH (U) 5.5 [pH] Normal 5-9 [facility] Comment on above: Performed By: #### I NFLUAB #### [facility] [address] [place] [address] Dr. Ashlie Hills RBC 0-2 Normal 0-2 [facility] Comment on above: Performed By: #### I NFLUAB #### [facility] [address] [place] [address] Dr. Ashlie Hills SPEC GRAVITY >=1.030 Abnormal 1.005-<=1.025 [facility] Comment on above: Performed By: #### I NFLUAB #### [facility] [address] [address] [address] Ashlie Hills UA PROTEIN 100 mg/dl Abnormal NEGATIVE/ TRACE [facility] Comment on above: Performed By: #### I NFLUAB #### [facility] [address] [place] [address] Dr. Ashlie Hills Urobilinogen Qn (U) 0.2 {Little'U}/dL Normal 0.2 - 1. 0 [facility] Comment on above: Performed By: #### I NFLUAB #### [facility] [address] [address] [address] Ashlie Hills WBC NONE SEEN Normal NONE SEEN [facility] Comment on above: Performed By: #### I NFLUAB #### [facility] [address] [place] [address] Dr. Ashlie Hills URIC ACID SERUMon 03-03-2022 Urate [Mass/Vol] 5.0 mg/dL Normal 2.6-6.0 [facility] Comment on above: Performed By: #### I NFLUAB #### [facility] [address] [place] [address] Dr. Ashlie Hills URINE T PROTEIN CREAT RATIOo n 03-03-2022 Protein (U) [Mass/Vol] 77.9 mg/dL Critically high <=12.0 [facility] Comment on above: Performed By: #### C VDAGS #### [facility] [address] [place] [address] Dr. Ashlie Hills UR PROT CREAT RAT 0.44 Normal The [facility] Comment on above: Performed By: #### C VDAGS #### [facility] [address] [place] [address] Dr. Ashlie Hills URINE CREAT 175.15 mg/dL Normal 20.00-300.00 The [facility] Comment on above: Performed By: #### C VDAGS #### [facility] [address] [place] [address] Dr. Ashlie Hills CULTURE URINEon 12-25-2021 CULTURE URINE Culture Observations: GREATER THAN TWO ORGANISMS PRESENT, HEAVILY MIXED. PLEASE RESUBMIT CLEAN CATCH MID-STREAM URINE IF CLINICALLY INDICATED. Normal [facility] Comment on above: Performed By: #### I NFLUAB #### [facility] [address] [place] [address] Dr. Ashlie Hills CBC AUTO DIFFon 12-24-2021 BASO # 0.1 103/ul Normal 0.0-0.1 [facility] Comment on above: Performed By: #### C BC #### [facility] [address] [place] [address] Dr. Ashlie Hills Basophils/100 WBC (Bld) 0.5 % Normal 0.2-2.0 [facility] Comment on above: Performed By: #### C BC #### [facility] [address] [place] [address] Dr. Ashlie Hills EO # 0.4 103/ul Normal 0.0-0.7 [facility] Comment on above: Performed By: #### C BC #### [facility] [address] [place] [address] Dr. Ashlie Hills Eosinophils/100 WBC (Bld) 2.4 % Normal 0.9-7.0 [facility] Comment on above: Performed By: #### C BC #### [facility] [address] [place] [address] Dr. Ashlie Hills Erythrocyte distribution width (RBC) [Ratio] 14.1 % Normal 11.0-15.0 [facility] Comment on above: Performed By: #### C BC #### [facility] [address] [place] [address] Dr. Ashlie Hills Hematocrit (Bld) [Volume fraction] 55.9 % Critically high 36.0-48.0 [facility] Comment on above: Performed By: #### C BC #### [facility] [address] [place] [address] Dr. Ashlie Hills Hemoglobin (Bld) [Mass/Vol] 17.9 g/dL Critically high 12.0-16.0 [facility] Comment on above: Performed By: #### C BC #### [facility] [address] [place] [address] Dr. Ashlie Hills IG # 0.06 10e3/ul Critically high 0.00-0.03 [facility] Comment on above: Performed By: #### C BC #### [facility] [address] [place] [address] Dr. Ashlie Hills IG % 0.4 % Normal 0.0-0.5 [facility] Comment on above: Performed By: #### C BC #### [facility] [address] [place] [address] Dr. Ashlie Hills LYMPH # 5.8 103/ul Critically high 1.2-3.8 [facility] Comment on above: Performed By: #### C BC #### [facility] [address] [place] [address] Dr. Ashlie Hills Lymphocytes/100 WBC (Bld) 35.4 % Normal 20.5-60.0 [facility] Comment on above: Performed By: #### C BC #### [facility] [address] [place] [address] Dr. Ashlie Hills MANUAL DIFF REQ NO Normal [facility] Comment on above: Performed By: #### C BC #### [facility] [address] [place] [address] Dr. Ashlie Hills MCH (RBC) [Entitic mass] 29.4 pg Normal 26.7-34.0 [facility] Comment on above: Performed By: #### C BC #### [facility] [address] [place] [address] Dr. Ashlie Hills MCHC (RBC) [Mass/Vol] 32.0 g/dL Normal 29.9-35.2 [facility] Comment on above: Performed By: #### C BC #### [facility] [address] [place] [address] Dr. Ashlie Hills MCV (RBC) [Entitic vol] 91.8 fL Normal 81.0-99.0 [facility] Comment on above: Performed By: #### C BC #### [facility] [address] [place] [address] Dr. Ashlie Hills MONO # 0.8 103/ul Normal 0.3-0.8 [facility] Comment on above: Performed By: #### C BC #### [facility] [address] [place] [address] Dr. Ashlie Hills Monocytes/100 WBC (Bld) 4.8 % Normal 1.7-12.0 [facility] Comment on above: Performed By: #### C BC #### [facility] [address] [place] [address] Dr. Ashlie Hills NEUT # 9.3 103/ul Critically high 1.4-6.5 [facility] Comment on above: Performed By: #### C BC #### [facility] [address] [place] [address] Dr. Ashlie Hills Neutrophils/100 WBC (Bld) 56.5 % Normal 43.0-75.0 [facility] Comment on above: Performed By: #### C BC #### [facility] [address] [place] [address] Dr. Ashlie Hills Platelet mean volume (Bld) [Entitic vol] 12.9 fL Normal 9.5-13.5 [facility] Comment on above: Performed By: #### C BC #### [facility] [address] [place] [address] Dr. Ashlie Hills PLT 127 103/ul Critically low 150-450 [facility] Comment on above: Performed By: #### C BC #### [facility] [address] [place] [address] Dr. Ashlie Hills RBC 6.09 106/ul Critically high 4.20-5.40 [facility] Comment on above: Performed By: #### C BC #### [facility] [address] [place] [address] Dr. Ashlie Hills WBC 16.4 103/ul Critically high 4.0-11.0 [facility] Comment on above: Performed By: #### C BC #### [facility] [address] [place] [address] ABD/PELVIS WO CONon [...] Severe right hip degenerative change. Normal [facility] ER URINE PROFILEon 2 Bilirubin Ql (U) Negative Normal NEGATIVE [facility] Comment on above: Performed By: #### Tracey LYMAN UMICRO #### [facility] [address] [place] [address] Dr. Ashlie Hills Clarity (U) CLEAR Normal CLEAR [facility] Comment on above: Performed By: #### Tracey LYMAN UMICRO #### [facility] [address] [place] [address] Dr. Ashlie Hills Color (U) DK. ORANGE Abnormal YELLOW [facility] Comment on above: Performed By: #### Tracey LYMAN UMICRO #### [facility] [address] [place] [address] Dr. Ashlie HOBBS A micrscopic examination will be performed if indicated. Normal [facility] Comment on above: Performed By: #### Tracey LYMAN UMICRO #### [facility] [address] [place] [address] Dr. Ashlie Hills Glucose Ql (U) 250 mg/dl Abnormal NEGATIVE [facility] Comment on above: Performed By: #### Tracey LYMAN UMICRO #### [facility] [address] [place] [address] Dr. Ashlie Hills Hemoglobin Ql (U) Negative Normal NEGATIVE The [facility] Comment on above: Performed By: #### Tracey LYMAN UMICRO #### [facility] [address] [address] [address] Ashlie Hills Ketones Ql (U) Negative Normal NEGATIVE [facility] Comment on above: Performed By: #### Tracey LYMAN UMICRO #### [facility] [address] [place] [address] Dr. Ashlie Hills LEUKOCYTES Negative Normal NEGATIVE [facility] Comment on above: Performed By: #### E RUR, UMICRO #### [facility] [address] [place] [address] Dr. Ashlie Hills Nitrite Ql (U) Negative Normal NEGATIVE [facility] Comment on above: Performed By: #### E NURA, UMICRO #### [facility] [address] [place] [address] Dr. Ashlie Hills pH (U) 5.0 [pH] Normal 5-9 [facility] Comment on above: Performed By: #### E NURA, UMICRO #### [facility] [address] [place] [address] Dr. Ashlie Hills Protein (U) [Mass/Vol] 100 mg/dL Abnormal NEGAT YURY/ TRACE [facility] Comment on above: Performed By: #### Tracey LYMAN, UMICRO #### [facility] [address] [place] [address] Dr. Ashlie Hills SPEC GRAVITY >=1.030 Abnormal 1.005-<=1.025 [facility] Comment on above: Performed By: #### Tracey LYMAN, UMICRO #### [facility] [address] [place] [address] Dr. Ashlie Hills UR MICRO IND INDICATED Normal [facility] Comment on above: Performed By: #### Tracey LYMAN, UMICRO #### [facility] [address] [place] [address] Dr. Ashlie Hills Urobilinogen Qn (U) 1.0 {Little'U}/dL Normal 0.2 - 1. 0 [facility] Comment on above: Performed By: #### Tracey LYMAN, UMICRO #### [facility] [address] [place] [address] Dr. Ashlie Hills PROF CHEM 8 (BAS METB)on Anion gap [Moles/Vol] 12.1 mmol/L Normal [facility] Comment on above: Performed By: #### I NFLUAB #### [facility] [address] [place] [address] Dr. Ashlie Hills Calcium [Mass/Vol] 9.0 mg/dL Normal 8.5-10.1 [facility] Comment on above: Performed By: #### I NFLUAB #### [facility] [address] [address] [address] Ashlie Hills Chloride [Moles/Vol] 101 mmol/L Normal 98-107 [facility] Comment on above: Performed By: #### I NFLUAB #### [facility] [address] [address] [address] Ashlie Hills CO2 [Moles/Vol] 29.1 mmol/L Normal 21.0-32.0 [facility] Comment on above: Performed By: #### I NFLUAB #### [facility] [address] [place] [address] Dr. Ashlie Hills Creatinine [Mass/Vol] 0.86 mg/dL Normal 0.55-1.02 [facility] Comment on above: Performed By: #### I NFLUAB #### [facility] [address] [address] [address] Ashlie Hills EGFR-AF UZBEK >60 Normal >=60 [facility] Comment on above: Performed By: #### I NFLUAB #### [facility] [address] [place] [address] Dr. Ashlie Hills EGFR-NON AF UZBEK >60 Normal >=60 [facility] Comment on above: Performed By: #### I NFLUAB #### [facility] [address] [address] [address] Ashlie Hills Glucose [Mass/Vol] 236 mg/dL Critically high 74-106 [facility] Comment on above: Performed By: #### I NFLUAB #### [facility] [address] [address] [address] Ashlie Hills Potassium [Moles/Vol] 4.2 mmol/L Normal 3.5-5.1 [facility] Comment on above: Performed By: #### I NFLUAB #### [facility] [address] [address] [address] Ashlie Hills Sodium [Moles/Vol] 138 mmol/L Normal 136-145 [facility] Comment on above: Performed By: #### I NFLUAB #### [facility] [address] [place] [address] Dr. Ashlie Hills Urea nitrogen [Mass/Vol] 11.0 mg/dL Normal 7.0-18.0 [facility] Comment on above: Performed By: #### I NFLUAB #### [facility] [address] [place] [address] Dr. Ashlie Hills Urea nitrogen/Creatinine [Mass ratio] 12.8 mg/mg Normal [facility] Comment on above: Performed By: #### I NFLUAB #### [facility] [address] [place] [address] Dr. Ashlie Hills URINE MICROSCOPIC ONLYon BACTERIA SMALL Abnormal NONE SEEN [facility] Comment on above: Performed By: #### E RUR, UMICRO #### [facility] [address] [place] [address] Dr. Ashlie Hills Bacteria identified Cx Nom (U) INDICATED Normal [facility] Comment on above: Performed By: #### E RUR, UMICRO #### [facility] [address] [place] [address] Dr. Ashlie Hills CAST NONE SEEN Normal NONE SEEN [facility] Comment on above: Performed By: #### E RUR, UMICRO #### [facility] [address] [place] [address] Dr. Ashlie Hills Crystals LM Nom (Urine sed) NONE SEEN Normal NONE SEEN [facility] Comment on above: Performed By: #### E RUR, UMICRO #### [facility] [address] [place] [address] Dr. Ashlie Hills Epithelial cells LM Ql (Urine sed) MODERATE Abnormal NONE SEEN /RARE [facility] Comment on above: Performed By: #### E RUR, UMICRO #### [facility] [address] [place] [address] Dr. Ashlie Hills MUCOUS NONE SEEN Normal NONE SEEN [facility] Comment on above: Performed By: #### E RUR, UMICRO #### [facility] [address] [address] [address] Ashlie Hills RBC 0-2 Normal 0-2 [facility] Comment on above: Performed By: #### E RUR UMICRO #### [facility] [address] [address] [address] Ashlie Hills WBC 0-2 Abnormal NONE SEEN [facility] Comment on above: Performed By: #### E RUR UMICRO #### [facility] [address] [address] [address] Ashlie Hills YEAST PRESENT Abnormal NONE SEEN [facility] Comment on above: Performed By: #### E NURA UMICRO #### [facility] [address] [address] [address] Ashlie Hills HIP RIGHT 1 OR 2 VWS WITH PE LVISon 07-20-2020 HIP RIGHT 1 OR 2 VWS WITH PELVIS [facility] Department of Radiology [address] [place] [id number] Patient Name: MITZI MACIAS : 1970 Sex: F Age: Race: White Pt. Location: Patient Status: O Ordered Date: 07/20/2020 1:45:00 PM Completed Date: 07/20/2020 01:57 PM Requesting Provider: LIZ EISENBERG Attending Provider: LIZ EISENBERG Report Copy To: MCKAYLA BLAS Signs & Symptoms: M25.551 Pain in right hip I10 History: Gips[place] Comments: evaluate Exam: HIP RIGHT 1 OR [...] MRI. Electronically signed: Pipo Acevedo. Transcribed by: [email or web address], User Resident: Electronically Signed by: PIPO ACEVEDO @ 07/20/2020 03:45 PM Normal [facility] Comment on above: Order Comment: evalu ate Vital Signs Date Time Vital Sign Value Performing Clinician Facility 01-29-2025 09:48-0400 Body height 170.2 cm Rain Souza MD Work Phone: [facility] 01-29-2025 09:48-0400 Body mass index (BMI) [Ratio] 56.38 kg/m2 Rain Souza MD Work Phone: [facility] 01-29-2025 09:48-0400 Body weight 163.29 kg Rain Souza MD Work Phone: [facility] 01-29-2025 09:48-0400 Diastolic blood pressure 70 mm[Hg] Rain Souza MD Work Phone: [facility] 01-29-2025 09:48-0400 Heart rate 72 /min Rain Souza MD Work Phone: [facility] 01-29-2025 09:48-0400 Respiratory rate 16 /min Rain Souza MD Work Phone: [facility] 01-29-2025 09:48-0400 SaO2% (BldA) [Mass fraction] 84 % Rain Souza MD Work Phone: [facility] 01-29-2025 09:48-0400 Systolic blood pressure 130 mm[Hg] Rain Souza MD Work Phone: [facility] 01-26-2025 18:11-0400 Body mass index (BMI) [Ratio] 58.64 kg/m2 Mckayla Aichholz MANAGER TRAINING [employer] DEVELOPMENT Work Phone: [facility] 01-26-2025 18:11-0400 Body temperature 98.49 [degF] Mckayla Aichholz MANAGER TRAINING [employer] DEVELOPMENT Work Phone: [facility] 01-26-2025 18:11-0400 Body weight 169.83 kg Mckayla Aichholz MANAGER TRAINING [employer] DEVELOPMENT Work Phone: [facility] 01-26-2025 18:11-0400 Diastolic blood pressure 82 mm[Hg] Mckayla Aichholz MANAGER TRAINING AND DEVELOPMENT Work Phone: [facility] 01-26-2025 18:11-0400 Heart rate 81 /min Mckayla Aichholz MANAGER TRAINING [employer] DEVELOPMENT Work Phone: [facility] 01-26-2025 18:11-0400 Respiratory rate 20 /min Mckayla Aichholz MANAGER TRAINING [employer] DEVELOPMENT Work Phone: [facility] 01-26-2025 18:11-0400 SaO2% (BldA) [Mass fraction] 90 % Mckayla Aichholz MANAGER TRAINING [employer] DEVELOPMENT Work Phone: [facility] 01-26-2025 18:11-0400 Systolic blood pressure 126 mm[Hg] Mckayla Aichholz MANAGER TRAINING AND DEVELOPMENT Work Phone: [facility] 12-09-2024 10:19-0400 Body temperature 98.01 [degF] Mckayla Aichholz MANAGER TRAINING AND DEVELOPMENT Work Phone: [facility] 12-09-2024 10:19-0400 Diastolic blood pressure 76 mm[Hg] Mckayla Aichholz MANAGER TRAINING AND DEVELOPMENT Work Phone: [facility] 12-09-2024 10:19-0400 Heart rate 71 /min Mckayla Aichholz MANAGER TRAINING [employer] DEVELOPMENT Work Phone: [facility] 12-09-2024 10:19-0400 Respiratory rate 20 /min Mckayla Aichholz MANAGER TRAINING [employer] DEVELOPMENT Work Phone: [facility] 12-09-2024 10:19-0400 SaO2% (BldA) [Mass fraction] 88 % Mckaylajuvenal Rosenbergz MANAGER TRAINING AND DEVELOPMENT Work Phone: [facility] 12-09-2024 10:19-0400 Systolic blood pressure 150 mm[Hg] Mckayla Juanjosehholz MANAGER TRAINING AND DEVELOPMENT Work Phone: [facility] 10-27-2024 14:11-0400 Body height 170.2 cm Mckayla Juanjosehholz MANAGER TRAINING AND DEVELOPMENT Work Phone: [facility] 10-27-2024 14:11-0400 Body mass index (BMI) [Ratio] 56.51 kg/m2 Mckayla Juanjosehholz MANAGER TRAINING AND DEVELOPMENT Work Phone: [facility] 10-27-2024 14:11-0400 Body temperature 98.71 [degF] Mckayla Juanjosehholz MANAGER TRAINING AND DEVELOPMENT Work Phone: [facility] 10-27-2024 14:11-0400 Body weight 163.66 kg Mckayla Juanjosehholz MANAGER TRAINING AND DEVELOPMENT Work Phone: [facility] 10-27-2024 14:11-0400 Diastolic blood pressure 74 mm[Hg] Mckayla Juanjosehholz MANAGER TRAINING AND DEVELOPMENT Work Phone: [facility] 10-27-2024 14:11-0400 Heart rate 75 /min Mckayla Aichholz MANAGER TRAINING AND DEVELOPMENT Work Phone: [facility] 10-27-2024 14:11-0400 Respiratory rate 18 /min Mckayla Juanjosehholz MANAGER TRAINING AND DEVELOPMENT Work Phone: [facility] 10-27-2024 14:11-0400 SaO2% (BldA) [Mass fraction] 90 % Mckayla Juanjosehholz MANAGER TRAINING AND DEVELOPMENT Work Phone: [facility] 10-27-2024 14:11-0400 Systolic blood pressure 132 mm[Hg] Mckayla Aichholz MANAGER TRAINING AND DEVELOPMENT Work Phone: [facility] 10-08-2024 11:21-0400 Body height 170.2 cm Rain Souza MD Work Phone: [facility] 10-08-2024 11:21-0400 Body mass index (BMI) [Ratio] 55.91 kg/m2 Rain Souza MD Work Phone: [facility] 10-08-2024 11:21-0400 Body weight 161.93 kg Rain Souza MD Work Phone: [facility] 10-08-2024 11:21-0400 Diastolic blood pressure 70 mm[Hg] Rain Souza MD Work Phone: [facility] 10-08-2024 11:21-0400 Heart rate 70 /min Rain Souza MD Work Phone: [facility] 10-08-2024 11:21-0400 Respiratory rate 16 /min Rain Souza MD Work Phone: [facility] 10-08-2024 11:21-0400 SaO2% (BldA) [Mass fraction] 91 % Rain Souza MD Work Phone: [facility] 10-08-2024 11:21-0400 Systolic blood pressure 130 mm[Hg] Rain Souza MD Work Phone: [facility] 08-27-2024 17:44-0500 Body mass index (BMI) [Ratio] 57.31 kg/m2 Mckayla Blas MANAGER TRAINING [employer] DEVELOPMENT Work Phone: [facility] 08-27-2024 17:44-0500 Body temperature 98.01 [degF] Mckayla Blas MANAGER TRAINING AND DEVELOPMENT Work Phone: [facility] 08-27-2024 17:44-0500 Body weight 165.97 kg Mckayla Blas MANAGER TRAINING AND DEVELOPMENT Work Phone: [facility] 08-27-2024 17:44-0500 Diastolic blood pressure 76 mm[Hg] Mckayla Blas MANAGER TRAINING AND DEVELOPMENT Work Phone: [facility] 08-27-2024 17:44-0500 Heart rate 83 /min Mckayla Blas MANAGER TRAINING AND DEVELOPMENT Work Phone: [facility] 08-27-2024 17:44-0500 Respiratory rate 18 /min Mckayla Patriciamariyatalia MANAGER TRAINING AND DEVELOPMENT Work Phone: [facility] 08-27-2024 17:44-0500 SaO2% (BldA) [Mass fraction] 91 % Mckayla Patriciajodie MANAGER TRAINING AND DEVELOPMENT Work Phone: [facility] 08-27-2024 17:44-0500 Systolic blood pressure 134 mm[Hg] Mckayla Patriciajodie MANAGER TRAINING AND DEVELOPMENT Work Phone: [facility] 06-11-2024 10:00-0500 Blood Pressure Location Elbert ARAUZ [facility] 06-11-2024 10:00-0500 Diastolic blood pressure 68 mm[Hg] Elbert ARAUZ [facility] 06-11-2024 10:00-0500 Heart rate 76 /min Elbert ARAUZ [facility] 06-11-2024 10:00-0500 Systolic blood pressure 132 mm[Hg] Elbert ARAUZ [facility] 05-27-2024 10:20-0500 Body height 170.2 cm Rain Souza MD Work Phone: [facility] 05-27-2024 10:20-0500 Body mass index (BMI) [Ratio] 56.7 kg/m2 Rain Souza MD Work Phone: [facility] 05-27-2024 10:20-0500 Body weight 164.2 kg Rain Souza MD Work Phone: [facility] 05-27-2024 10:20-0500 Diastolic blood pressure 66 mm[Hg] Rain Souza MD Work Phone: [facility] 05-27-2024 10:20-0500 Heart rate 72 /min Rain Souza MD Work Phone: [facility] 05-27-2024 10:20-0500 Respiratory rate 16 /min Rain Souza MD Work Phone: [facility] 05-27-2024 10:20-0500 Systolic blood pressure 128 mm[Hg] Rain Souza MD Work Phone: [facility] 04-14-2024 10:27-0400 Body height 165.1 cm Mckayla Aichholz MANAGER TRAINING AND DEVELOPMENT Work Phone: [facility] 04-14-2024 10:27-0400 Body mass index (BMI) [Ratio] 61.01 kg/m2 Mckayla Aichholz MANAGER TRAINING AND DEVELOPMENT Work Phone: [facility] 04-14-2024 10:27-0400 Body temperature 98.49 [degF] Mckayla Aichholz MANAGER TRAINING AND DEVELOPMENT Work Phone: [facility] 04-14-2024 10:27-0400 Body weight 166.29 kg Mckayla Aichholz MANAGER TRAINING AND DEVELOPMENT Work Phone: [facility] 04-14-2024 10:27-0400 Diastolic blood pressure 80 mm[Hg] Mckayla Aichholz MANAGER TRAINING AND DEVELOPMENT Work Phone: [facility] 04-14-2024 10:27-0400 Heart rate 77 /min Mckayla Aichholz MANAGER TRAINING AND DEVELOPMENT Work Phone: [facility] 04-14-2024 10:27-0400 Respiratory rate 19 /min Mckayla Aichholz MANAGER TRAINING AND DEVELOPMENT Work Phone: [facility] 04-14-2024 10:27-0400 SaO2% (BldA) [Mass fraction] 92 % Mckayla Aichholz MANAGER TRAINING AND DEVELOPMENT Work Phone: [facility] 04-14-2024 10:27-0400 Systolic blood pressure 116 mm[Hg] Mckayla Aichholz MANAGER TRAINING AND DEVELOPMENT Work Phone: [facility] 03-08-2022 15:00-0400 Body height 170.18 cm Stephanie Tico Other [employer] Other 03-08-2022 15:00-0400 Body temperature 97.6 [degF] Stephanie Tico Other [employer] Other 03-08-2022 15:00-0400 Diastolic blood pressure 72 mm[Hg] Stephanie Tico Other [employer] Other 03-08-2022 15:00-0400 Respiratory rate 20 /min Stephanie Tico Other [employer] Other 03-08-2022 15:00-0400 SaO2% (BldA) [Mass fraction] 91 % Stephanie Tico Other [employer] Other 03-08-2022 15:00-0400 Systolic blood pressure 131 mm[Hg] Stephanie Tico Other [employer] Other 02-20-2022 09:20-0400 Body height 170.18 cm Stephanie Tico Other [employer] Other 02-20-2022 09:20-0400 Body temperature 96.5 [degF] Stephanie Tico Other [employer] Other 02-20-2022 09:20-0400 Diastolic blood pressure 69 mm[Hg] Stephanie Tico Other [employer] Other 02-20-2022 09:20-0400 Respiratory rate 20 /min Stephanie Tico Other [employer] Other 02-20-2022 09:20-0400 SaO2% (BldA) [Mass fraction] 91 % Stephanie Tico Other [employer] Other 02-20-2022 09:20-0400 Systolic blood pressure 129 mm[Hg] Stpehanie Tico Other [employer] Other 02-06-2022 10:24-0400 Blood Pressure Location Elbert [email or web address] [facility] [employer] 02-06-2022 10:24-0400 Diastolic blood pressure 76 mm[Hg] Elbert ARAUZ [facility] 02-06-2022 10:24-0400 Heart rate 70 /min [facility] 02-06-2022 10:24-0400 Respiratory rate 16 /min [facility] 02-06-2022 10:24-0400 Systolic blood pressure 134 mm[Hg] Elbert ARAUZ [facility] Encounters Encounter Date Encounter Type Care Provider Facility Start: 04-17-2025 ambulatory Omero Nas Negrita use TAX MANAGER-MOTION PICTURE EQUIPMENT MACHINIST Facility:[facility] Start: 03-24-2025 ambulatory Corinne Kellogg MD Facility:[facility] Start: 03-23-2025 End: 03-23-2025 ambulatory Omero Nas Bob TAX MANAGER-MOTION PICTURE EQUIPMENT MACHINIST Facility:[facility] Start: 03-11-2025 End: 03-11-2025 ambulatory Flynn Urias DPM Facility:[facility] tr Start: 03-09-2025 End: 03-09-2025 Refill Mckayla Blas NP Work Phone: [facility] Comment on above: Tobacco user; Encounter for smoking cessation counseling Start: 01-29-2025 End: 01-29-2025 Bamboo flowsheet Rain Souza MD Work Phone: [facility] Start: 01-29-2025 End: 01-29-2025 Bamboo flowsheet Rain Souza MD Work Phone: [facility] Start: 01-29-2025 End: 01-29-2025 Clinisync Result Encounter Generic External Data Provider [facility] External Department Unsolicited Start: 01-29-2025 End: 01-29-2025 ambulatory RAIN SOUZA Not Available Start: 01-29-2025 End: 01-29-2025 Office outpatient visit 25 minutes Rain Souza MD Work Phone: [facility] Comment on above: Encounter for dietar y consultation (Primary Dx); Type 2 diabetes mellitus with hyperglycemia, with long-term current use of insulin ([facility]); Vitamin D deficiency; Primary hypertension ; Insulin long-term use ([facility]); Hyperlipemia, mixed ; Microalbuminuria; Class 3 severe obesity due to excess calories with serious comorbidity and body mass index (BMI) of 50.0 to 59.9 in adult ([facility]) Start: 01-26-2025 End: 01-26-2025 ambulatory MCKAYLA BLAS Not Available Start: 01-26-2025 End: 01-26-2025 Patient encounter procedure Mckayla Blas NP Work Phone: [facility] Comment on above: Encounter for [...] (CMS-HCC) Start: 01-06-2025 End: 01-06-2025 ambulatory [facility] Start: 12-18-2024 End: 12-19-2024 Refill Mckayla Blas MANAGER TRAINING AND DEVELOPMENT Work Phone: [facility] Comment on above: Hyperlipidemia, unsp ecified ; Tobacco user; Encounter for smoking cessation counseling Start: 12-09-2024 End: 12-09-2024 Bamboo flowsheet Mckayla Blas MANAGER TRAINING AND DEVELOPMENT Work Phone: [facility] Start: 12-09-2024 End: 12-09-2024 Bamboo flowsheet Mckayla Blas MANAGER TRAINING AND DEVELOPMENT Work Phone: [facility] Start: 12-09-2024 End: 12-09-2024 ambulatory MCKAYLA BLAS Not Available Start: 12-09-2024 End: 12-09-2024 Office outpatient visit 25 minutes Mckayla Blas MANAGER TRAINING AND DEVELOPMENT Work Phone: [facility] Comment on above: Cellulitis [...] minutes Mckayla Blas NP Work Phone: [facility] Comment on above: Primary hypertension ([facility]/HCC) (Primary Dx); Diabetic polyneuropathy associated with type 2 diabetes mellitus ([facility]); Chronic diastolic heart failure ([facility]); Bilateral lower extremity edema; Morbid (severe) obesity due to excess calories ([facility]); Type 2 diabetes mellitus with complication, with long-term current use of insulin ([facility]); Anxiety and depression ([facility]); Cigarette nicotine dependence without complication; Encounter for screening mammogram for malignant neoplasm of breast; Insomnia; Non-seasonal allergic rhinitis, unspecified trigger; Type 2 diabetes mellitus with unspecified complications; Vitamin D deficiency, unspecified; Gastro-esophageal reflux disease without esophagitis; PAD (peripheral artery disease) ([facility]); Gastroesophageal reflux disease, unspecified whether esophagitis present; Venous ulcer of right leg ([facility]) Start: 10-21-2024 End: 10-21-2024 Refill Mckayla Blas NP [facility] Comment on above: Chronic obstructive pulmonary disease, unspecified Start: 10-08-2024 End: 10-08-2024 Clinisync Result Encounter Mckayla Blas NP Work Phone: [facility] External Department Unsolicited Start: 10-08-2024 End: 10-08-2024 Clinisync Result Encounter Mckayla Blas MANAGER TRAINING AND DEVELOPMENT Work Phone: [facility] External Department Unsolicited Start: 10-08-2024 End: 10-08-2024 Office outpatient visit 25 minutes Rain Souza MD [facility] Comment on above: Type 2 diabetes asiya itus with hyperglycemia, with long-term current use of insulin ([facility]) (Primary Dx); Encounter for dietary consultation; Vitamin D deficiency; Primary hypertension ([facility]); Insulin long-term use (CMS/HCC); Hyperlipemia, [...] Department Unsolicited Start: 08-08-2024 End: 08-08-2024 ambulatory [facility] Start: 07-17-2024 End: 07-17-2024 Refill Mckayla Blas MANAGER TRAINING AND DEVELOPMENT Work Phone: [facility] Start: 07-14-2024 End: 07-14-2024 Office outpatient visit 25 minutes Mckayla Blas MANAGER TRAINING AND DEVELOPMENT Work Phone: [facility] Comment on above: Primary hypertension (CMS/HCC) (Primary [...] use of insulin ([facility]); Tobacco user; Encounter for smoking cessation counseling; Kidney stone; Adrenal mass 1 cm to 4 cm in diameter ([facility]); Radiculopathy, lumbar region; Non-seasonal allergic rhinitis, unspecified trigger; Type 2 diabetes mellitus with unspecified complications ([facility]/HCC) Start: 07-14-2024 End: 07-14-2024 ambulatory MCKAYLA BLAS Not Available Start: 07-05-2024 End: 07-07-2024 Refill Mckayla Blas MANAGER TRAINING AND DEVELOPMENT Work Phone: [facility] Comment on above: Bilateral lower extr emity edema Start: 06-11-2024 ambulatory Elbert Maysi ty:SHEA Mckee Start: 06-11-2024 End: 06-11-2024 Patient encounter procedure Elbert ARAUZ [facility] Start: 05-27-2024 End: 05-27-2024 Bamboo flowsheet Rain Souza MD Work Phone: [facility] Start: 05-27-2024 End: 05-27-2024 Bamboo flowsheet Rain Souza MD Work Phone: [facility] Start: 05-27-2024 End: 05-27-2024 ambulatory AHMAD [...] 04-14-2024 End: 04-14-2024 Bamboo flowsheet Mckayla Blas MANAGER TRAINING AND DEVELOPMENT Work Phone: [facility] Start: 04-14-2024 End: 04-14-2024 Bamboo flowsheet Mckayla Blas MANAGER TRAINING AND DEVELOPMENT Work Phone: [facility] Start: 04-14-2024 End: 04-14-2024 Office outpatient visit 25 minutes Mckayla Blas NP Work Phone: [facility] Comment on above: Primary hypertension (CMS/HCC) (Primary Dx); Insomnia; Type 2 diabetes mellitus with complication, with long-term current use of insulin ([facility]); Non-seasonal allergic rhinitis, unspecified trigger; [...] Start: 04-05-2024 End: 04-06-2024 Refill Mckayla Aichholz MANAGER TRAINING AND DEVELOPMENT Work Phone: [facility] Comment on above: Hyperlipidemia, unsp ecified (CMS/HCC); Bilateral lower extremity edema Vitamin D deficiency , unspecified Start: 01-17-2024 Patient encounter procedure Rain Souza MD Work Phone: [facility] Start: 08-17-2023 Refill Mckayla Aichholz MANAGER TRAINING AND DEVELOPMENT Work Phone: [facility] Comment on above: Vaginal yeast infect ion (Primary Dx) Start: 08-14-2023 Refill Mckayla Aichholz MANAGER TRAINING AND DEVELOPMENT Work Phone: [facility] Comment on above: Type 2 diabetes asiya itus with unspecified complications (CMS/HCC); Edema, unspecified; Edema Start: 12-05-2022 ambulatory MATEUSZ NICHOLEMIPATHY . Facility:[facility] Start: 12-05-2022 End: 12-06-2022 Evaluation and management of inpatient UMBERTO ALONDRA . Facility:[facility] Start: 11-23-2022 End: 11-23-2022 ambulatory MOTION PICTURE EQUIPMENT MACHINIST MCKAYLA JUANJOSECayetanoJODIE Facility:[facility] Start: 11-22-2022 End: 11-23-2022 ambulatory MOTION PICTURE EQUIPMENT MACHINIST MCKAYLA AICCayetanoJODIE Facility:[facility] Start: 11-17-2022 End: 11-18-2022 ambulatory SUBHASH GASPAR . Facility:[facility] Start: 11-15-2022 End: 11-15-2022 Patient encounter procedure SARAH VEGA [facility] Start: 10-05-2022 End: 10-05-2022 ambulatory MARIANO DIAB . Facility:[facility] Start: 09-21-2022 End: 09-21-2022 ambulatory MOTION PICTURE EQUIPMENT MACHINIST MCKAYLA AICCayetanoMARIYAZ Facility:[facility] Start: 09-14-2022 ambulatory RAFAEL Ribera y:[facility] Start: 08-24-2022 End: [address] CHAPARRO MORTENSEN . Facility:[facility] Start: 08-21-2022 End: 08-22-2022 ambulatory HATTIE Ramsey [facility] Facility:[facility] Start: 07-27-2022 End: 07-28-2022 ambulatory CECILIA NIRMALATray . Facility:[facility] Start: 07-18-2022 End: 07-19-2022 ambulatory CECILIA BJORNRUCHI . Facility:[facility] Start: 07-18-2022 End: 07-19-2022 ambulatory HATTIE Ramsey [facility] Facility:[facility] Start: 07-06-2022 End: 07-06-2022 ambulatory SAYDA BLAS Facility:[facility] Start: 05-11-2022 End: 05-12-2022 ambulatory GIL VALENZUELA . Facility:[facility] Start: 04-25-2022 End: 04-25-[address] CHAPARRO MORTENSEN . Facility:[facility] Start: 04-20-2022 End: 04-21-2022 ambulatory GIL VALENZUELA . Facility:[facility] Start: 03-08-2022 End: 03-08-2022 ambulatory Stephanie Tico Other [employer] Other Start: 03-08-2022 Office outpatient vi sit 15 minutes Stephanie Tico [facility] Start: 03-03-2022 End: 03-04-2022 ambulatory SAYDA BLAS Facility:[facility] Start: 02-20-2022 End: 02-20-2022 ambulatory Stephanie Tico Other [employer] Other Start: 02-20-2022 Office outpatient ne w 45 minutes Stephanie Tico [facility] Start: 02-06-2022 End: 02-06-2022 Patient encounter procedure Elbert ARAUZ [facility] Start: 01-19-2022 End: 01-20-2022 ambulatory GIL VALENZUELA . Facility:[facility] Start: 12-24-2021 End: 12-24-2021 ambulatory OLE RAMIREZ Facility: Start: 08-26-2020 End: 09-10-2020 Patient encounter procedure MARY TAVERAS Facility:[email or web address] Start: 10-30-2019 End: 10-30-2019 Emergency department patient visit JAMES BENAVIDEZ [facility] Start: 10-30-2019 End: 10-30-2019 Emergency department patient visit James Benavidez [facility] Emergency Department Start: 11-02-2016 Preoperative state Stephanie Tico Other [employer] Other Procedures Date Procedure Procedure Detail Performing [...] MD Work Phone: Start: 10-08-2024 [facility] UA (CLEAN/CATCH) MICROSCOPIC IF INDICATE Mckayla Blas MANAGER TRAINING AND DEVELOPMENT Work Phone: Start: 08-27-2024 ALL CBC WITH AUTO DIFF Generic External Data Provider Start: 05-27-2024 Gluc bld gluc mntr d ev cleared fda spec home use Rain Souza MD Work Phone: Start: 05-12-2024 [facility] CREATININE Generic External Data Provider Start: 12-14-2023 Mammography Rain urena MD Work Phone: Start: 11-22-2022 Mammography Mckayla clifford MANAGER TRAINING AND DEVELOPMENT Work Phone: Start: 10-08-2015 Microscopic observat ion [...] 08-03-2025 Screening for malignant neoplasm of colon [facility] Start: 07-14-2025 Glaucoma screening Diabetes: R etinopathy Screening [facility] Start: 05-28-2025 End: 05-28-[address] [facility] Start: 05-13-2025 Glaucoma screening Diabetes: R etinopathy Screening [facility] Start: 05-01-2025 Hemoglobin A1c measurement Diabetes: Hemoglobin A1C [facility] Start: 04-29-2025 End: 04-29-2025 Patient encounter procedure [facility] Start: 03-09-2025 Influenza vaccination [facility] Start: 01-28-2025 End: 01-28-2025 Patient encounter procedure 01/28/2025 10:50 AM EDT Office Visit [facility] [address] [place] [address] Rain Souza MD [address] [place] [address] [facility] Start: 01-26-2025 End: 01-26-2025 Patient encounter procedure 01/26/2025 6:00 PM EDT Office Visit [facility] [address] [place] [id number] Mckayla Blas NP [address] [place] [id number] [facility] Start: 01-16-2025 Medicare Annual Wellness (AWV) Medicare Annual Wellness (AWV) [facility] Start: 01-07-2025 Hemoglobin A1c measurement Diabetes: Hemoglobin A1C [facility] Start: 12-15-2024 End: 12-27-2025 MG Breast - bilateral Screening Bilateral screening mammogram Imaging Routine Encounter for screening mammogram for malignant neoplasm of breast Expected: 12/15/2024 (Approximate), Expires: 12/27/2025 [facility] Work Phone: Comment on above: Expected: 12/15/2024 (Approximate), Expires: 12/27/2025 Start: 12-13-2024 Screening for malignant neoplasm of breast Mammogram [facility] Start: 11-11-2024 Urine screening for protein Diabetes: Urine Protein Screening [facility] Start: 10-27-2024 End: 10-27-2024 Patient encounter procedure 10/27/2024 2:00 PM EDT Office Visit [facility] [address] [place] [phone] Mckayla Blas NP [address] [place] [address] [facility] Start: 10-08-2024 End: 10-08-2024 Patient encounter procedure 10/08/2024 11:20 AM EDT Office Visit [facility] [address] [place] [address] Rain Souza MD [address] [place] [address] [facility] Start: 08-27-2024 End: 08-27-2024 Patient encounter procedure 08/27/2024 5:30 PM EST Office Visit [facility] [address] [place] [phone] Mckayla Blas NP [address] [place] [phone] [facility] Start: 08-27-2024 End: 08-27-2025 25-hydroxyvitamin D3 [Mass/volume] in Serum or Plasma Vitamin D 25 hydroxy Lab Routine Vitamin deficiency Expected: 08/27/2024 (Approximate), Expires: 08/27/2025 [facility] Comment on above: Expected: 08/27/2024 (Approximate), Expires: 08/27/2025 Start: 08-27-2024 Hemoglobin A1c measurement Diabetes: Hemoglobin A1C [facility] Start: 08-27-2024 End: 08-27-2025 Hepatic function 2000 panel - Serum or Plasma Hepatic function panel Lab Routine Hyperlipidemia, unspecified (CMS/HCC) Expected: 08/27/2024 (Approximate), Expires: 08/27/2025 [facility] Comment on above: Expected: 08/27/2024 (Approximate), Expires: 08/27/2025 Start: 08-27-2024 End: 08-27-2025 Lipid 1996 panel - Serum or Plasma Lipid panel Lab Routine Mixed hyperlipidemia (CMS/HCC) Expected: 08/27/2024 (Approximate), Expires: 08/27/2025 [facility] Work Phone: Comment on above: Expected: 08/27/2024 (Approximate), Expires: 08/27/2025 Start: 08-27-2024 End: 08-27-2025 Microalbumin/Creatini ne panel in random Urine Microalbumin / creatinine, urine ratio Lab Routine Primary hypertension (CMS/HCC) Type 2 diabetes mellitus with complication, with long-term current use of insulin ([facility]/HCC) Expected: 08/27/2024 (Approximate), Expires: 08/27/2025 [facility] Comment on above: Expected: 08/27/2024 (Approximate), Expires: 08/27/2025 Start: 08-27-2024 End: 08-27-2025 Urate [Mass/volume] in Serum or Plasma Uric acid Lab Routine Gout, unspecified cause, unspecified chronicity, unspecified site Expected: 08/27/2024 (Approximate), Expires: 08/27/2025 [facility] Comment on above: Expected: 08/27/2024 (Approximate), Expires: 08/27/2025 Start: 08-27-2024 End: 08-27-2025 Urinalysis complete panel - Urine Urinalysis with reflex microscopic (clean catch) Lab Routine Primary hypertension ([facility]) Type 2 diabetes mellitus with complication, with long-term current use of insulin ([facility]) Tobacco user Gout, unspecified cause, unspecified chronicity, unspecified site Expected: 08/27/2024 (Approximate), Expires: 08/27/2025 [facility] Comment on above: Expected: 08/27/2024 (Approximate), Expires: 08/27/2025 Start: 08-26-2024 End: 08-26-2024 Patient encounter procedure 08/26/2024 10:30 AM EST Office Visit [facility] [address] [place] [address] Rain Souza MD [address] [place] [address] [facility] Start: 07-14-2024 End: 07-14-2024 Patient encounter procedure 07/14/2024 6:30 PM EST Office Visit [facility] [address] [place] [address] Mckayla Blas NP [address] [place] [address] [facility] Start: 07-14-2024 End: 07-14-2024 Patient encounter procedure 07/14/2024 10:10 AM EST Office Visit [facility] [address] [place] [address] Rain Souza MD [address] [place] [address] [facility] Start: 06-06-2024 Influenza vaccination Influenza Vacc ine (#1) [facility] Comment on above: Postponed from 03/09 (Patient Refused) Start: 05-27-2024 End: 05-27-2024 Patient encounter procedure 05/27/2024 9:50 AM EST Office Visit [facility] [address] [place] [address] Rain Souza MD [address] [place] [address] [facility] Start: 05-17-2024 Hemoglobin A1c measurement Diabetes: Hemoglobin A1C [facility] Start: 05-15-2024 End: 05-15-2024 Chart abstracting 05/15/[address] [facility] [address] [place] [address] Rain Souza MD [address] [place] [address] [facility] Start: 05-15-2024 End: 05-15-2024 Patient encounter procedure 05/15/2024 11:20 AM EST Office Visit [facility] [address] [place] [address] Rain Souza MD [address] [place] [address] [facility] Start: 04-17-2024 End: 04-17-2024 Patient encounter procedure 04/17/2024 3:40 PM EDT Office Visit [facility] [address] [place] [address] Mckayla Blas NP [address] [place] [address] [facility] Start: 04-14-2024 End: 04-14-2024 Patient encounter procedure 04/14/2024 11:00 AM EDT Office Visit [facility] [address] [place] [phone] Mckayla Blas, MANAGER TRAINING AND DEVELOPMENT [address] [place] [phone] Arrived [facility] Comment on above: Arrived Start: 03-09-2024 Influenza vaccination Influenza Vacc ine (#1) [facility] Start: 02-19-2024 Hemoglobin A1c measurement Diabetes: Hemoglobin A1C [facility] Start: 11-24-2023 Urine screening for protein Diabetes: Urine Protein Screening [facility] Start: 11-23-2023 Screening for malignant neoplasm of breast Mammogram [facility] Start: 10-15-2023 End: 10-15-2023 Patient encounter procedure 10/15/2023 4:30 PM EDT Office Visit [facility] [address] [place] [phone] Mckayla Blas NP [address] [place] [phone] [facility] Start: 08-09-2023 Hemoglobin A1c measurement Diabetes: Hemoglobin A1C [facility] Start: 05-27-2021 Glaucoma screening Diabetes: R etinopathy Screening [facility] Start: 03-09-2020 Influenza vaccination Flu vacc ine (Season Ended) [employer] Start: 10-07-2018 Screening for malignant neoplasm of cervix [facility] Start: 2010 Lipid panel Lipid screen [place], [place] Start: 2000 Screening for malignant neoplasm of cervix HPV/Cotest [facility] Start: 1991 Screening for malignant neoplasm of cervix Cervical cancer screen [employer], [place] Start: 1989 DTaP/Tdap/Td vaccine (1 - Tdap) DTaP/Tdap/Td vaccine (1 - Tdap) [employer] [place] [employer] Start: 1985 HIV screening HIV screen [place], [place] Start: 1970 Medicare Annual Wellness (AWV) Medicare Annual Wellness (AWV) [facility] Start: 1970 Screening for malignant neoplasm of colon [facility] BLOOD CULTURE 1 BLOOD CULTURE 1 Lab Routine 12/04/2024 4:44 PM EDT [facility] BLOOD CULTURE 2 BLOOD CULTURE 2 Lab Routine 12/04/2024 5:28 PM EDT [facility] Immunizations Immunization Date Immunization Notes Care Provider Judie lucas 05-18-2023 influenza, injectabl e, quadrivalent, contains preservative Mckayla Blas NP Work Phone: [facility] 05-18-2023 influenza virus vacc ine, unspecified formulation Rain Souza MD Work Phone: [facility] 07-19-2021 SARS-CoV-2 (COVID-19 ) mRNA BNT-162b2 vax [employer] [facility] 10-28-2020 SARS-CoV-2 (COVID-19 ) mRNA BNT-162b2 vax [employer] [facility] 10-08-2020 SARS-CoV-2 (COVID-19 ) mRNA BNT-162b2 vax [employer] [facility] 04-16-2017 influenza virus vacc ine, H5N1, A/ (national stockpile) Mckayla Blas MANAGER TRAINING AND DEVELOPMENT Work Phone: [facility] 04-16-2017 influenza virus vacc ine, unspecified formulation Rain Souza MD Work Phone: [facility] 04-16-2017 influenza, unspecifi ed formulation Elbert REGLA [facility] 04-16-2017 pneumococcal polysaccharide vaccine, 23 valent Rain Souza MD Work Phone: [facility] 05-10-2016 influenza virus vacc ine, H5N1, A/ (national stockpile) Mckayla Blas NP Work Phone: [facility] 05-10-2016 influenza virus vacc ine, unspecified formulation Rain Souza MD Work Phone: [facility] 05-10-2016 influenza, unspecifi ed formulation Elbert ARAUZ [facility] 05-02-2013 influenza virus vacc ine, whole virus Rain Souza MD Work Phone: [facility] 05-02-2013 influenza, injectabl e, quadrivalent, contains preservative Mckayla Wan MANAGER TRAINING AND DEVELOPMENT Work Phone: [facility] 05-02-2013 influenza, whole Elbert BARBARA ERS [facility] 01-29-1998 measles, mumps and rubella virus vaccine Rain Souza MD Work Phone: [facility] Payers Date Payer Category Payer Unknown [id number] 2023 Medicare (Managed Care) 1.2. [id number] 2023 Private Health Insurance [id number] 2023 Medicare [id number] 2018 Medicaid MEDICAID [facility] [id number] 2018-Present [phone] [address] [place] [address] Medicaid [id number] 2013 Medicare [id number] 1970 Unknown [id number] 2.16.840.1.646022.3.579.2.6 47 1970 Unknown [id number] 2.16.840.1.717699.3.579.2.5 93 1970 Unknown [id number] 2.16.840.1.101727.3.579.2.5 93 1970 Unknown [id number] 2.16.840.1.133936.3.579.2.5 93 1970 Unknown [id number] 2.16.840.1.237303.3.579.2.5 93 1970 Unknown [id number] 2.16.840.1.979969.3.579.2.5 93 1970 Unknown [id number] 2.16.840.1.698128.3.579.2.5 93 1970 Unknown [id number] 2.16.840.1.279085.3.579.2.5 93 1970 Unknown [id number] 2.16.840.1.331703.3.579.2.5 93 1970 Unknown [id number] 2.16.840.1.914242.3.579.2.5 93 1970 Unknown [id number] 2.16.840.1.802049.3.579.2.5 93 1970 Unknown [id number] 2.16.840.1.440898.3.579.2.5 93 1970 Unknown [id number] 2.16.840.1.873453.3.579.2.5 93 1970 Unknown [id number] 2.16.840.1.236947.3.579.2.5 93 1970 Unknown [id number] 2.16.840.1.872824.3.579.2.5 93 1970 Unknown [id number] 2.16.840.1.286897.3.579.2.5 93 1970 Unknown [id number] 2.16.840.1.032336.3.579.2.5 93 1970 Unknown [id number] 2.16.840.1.868318.3.579.2.5 93 1970 Unknown [id number] 2.16.840.1.159241.3.579.2.5 93 1970 Unknown [id number] 2.16.840.1.470003.3.579.2.5 93 1970 Unknown [id number] 2.16.840.1.131319.3.579.2.5 93 1970 Unknown [id number] 2.16.840.1.087287.3.579.2.5 93 1970 Unknown [id number] 2.16.840.1.956256.3.579.2.5 93 1970 Unknown [id number] 2.16.840.1.670745.3.579.2.7 27 1970 Unknown [id number] 2.16.840.1.432383.3.579.2.7 27 1970 Unknown [id number] 2.16.840.1.409325.3.579.2.1 259 1970 Unknown [id number] 2.16.840.1.849403.3.579.2.1 259 1970 Unknown [id number] 2.16.840.1.362396.3.579.2.1 259 1970 Unknown [id number] 2.16.840.1.219374.3.579.2.1 259 1970 Unknown [id number] 2.16.840.1.863351.3.579.2.1 259 1970 Unknown [id number] 2.16.840.1.955994.3.579.2.1 259 1970 Unknown [id number] 2.16.840.1.012797.3.579.2.1 259 1970 Unknown [id number] 2.16.840.1.361149.3.579.2.1 259 1970 Unknown [id number] 2.16.840.1.981138.3.579.2.1 259 1970 Unknown [id number] 2.16.840.1.994010.3.579.2.1 96 1970 Unknown [id number] 2.16.840.1.488839.3.579.2.1 96 1970 Unknown [id number] 2.16.840.1.529374.3.579.2.1 96 1970 Unknown [id number] 2.16.840.1.976453.3.579.2.1 96 1970 Unknown [id number] 2.16.840.1.093834.3.579.2.1 96 1970 Unknown [id number] 2.16.840.1.935852.3.579.2.1 96 1959 Medicaid [id number] 1959 Private Health Insurance [id number] 1959 Unknown [id number] 2.16.840.1.655430.19 Social History Date Type Detail Facility Start: 02-17-2014 End: 01-29-2025 Tobacco smoking status NHIS Current every day smoker [place] [employer] Start: 02-17-1994 History of tobacco use Cigarette Smo ker [place] [employer] Start: 02-17-2014 End: 08-26-2024 Cigarettes smoked current (pack per day) - Reported [place] [employer] Start: 02-17-2014 Alcohol intake Current drinke r of alcohol (finding) [place] [employer] Start: 02-17-2014 Alcohol Comment Rare [place], [place] Start: 1970 Sex Assigned At Not on file M [place], [place] Exposure to SARS-CoV -2 (event) Unable to assess [place] [employer] Start: 02-06-2022 Tobacco smoking status Smoker (findi ng) [facility] Start: 07-10-2023 End: 08-26-2024 Sex Assigned At Female [facility] Start: 11-15-2022 End: 06-11-2024 Tobacco smoking status Heavy tobacco smoker (finding) [facility] Start: 07-10-2023 End: 01-29-2025 Tobacco use and exposure Smokeless tobacco non-user [facility] Start: 07-10-2023 End: 01-29-2025 Alcohol intake Lifetime non-drinker (finding) [facility] Within the last year , have you been afraid of your partner or ex-partner? No [facility] Do you belong to any clubs or organizations such as latter day groups, unions, [...] Equipment Origin al Text Equipment Identifier Dates [id number] Start: 01-18-2024 USE TO TEST BLOO D SUGAR 4 TIMES DAILY [id number] Start: 07-07-2024 Functional Status Date Assessment Result Facility 01-26-2025 Patient Health Quest ionnaire 2 item (PHQ-2) [Reported] [facility] 01-26-2025 Trouble falling or s taying asleep, or sleeping too much Not at all 01/26/2025 4:13 PM EDT Mychart, Generic Not at all [facility] 01-26-2025 Feeling tired or hav ing little energy Not at all 01/26/2025 4:13 PM EDT Mychart, Generic Not at all [facility] 01-26-2025 Poor appetite or overeating Not at all 01/26/2025 4:13 PM EDT Mychart, Generic Not at all [facility] 01-26-2025 Feeling bad about yourself-or that you are a failure or have let yourself or your family down Not at all 01/26/2025 4:13 PM EDT Mychart, Generic Not at all [facility] 01-26-2025 Trouble concentratin g on things, such as reading the newspaper or watching television Not at all 01/26/2025 4:13 PM EDT Mychart, Generic Not at all [facility] 01-26-2025 Moving or speaking s o slowly that other people could have noticed. Or the opposite - being so fidgety or restless that you have been moving around a lot more than usual Not at all 01/26/2025 4:13 PM EDT Mychart, Generic Not at all [facility] 01-26-2025 Thoughts that you wo uld be better off , or of hurting yourself in some way Not at all 01/26/2025 4:13 PM EDT Mychart, Generic Not at all [facility] 06-11-2024 Functional Status N/A [facility] 11-15-2022 Functional Status N/A [facility] 02-06-2022 Functional Status N/A [facility] Clinical Notes 01-19-2022 to 02-04-2025 Rain Souza MD - 01/29/2025 9:40 AM Savannah Blas NP - 01/26/2025 6:46 PM Savannah Blas NP - 01/26/2025 6:46 PM EDMicheal Sowcayetanomariyatalia, MANAGER TRAINING AND DEVELOPMENT - 01/26/2025 6:46 PM EDTPatient Instructions Note Date & Type Note Facility 02-04-2025 Note Please let her know her ECHO showed some improvement in the left side wall thickness, it was severely enlarged, now it is moderate. Important for good BP control to continue to improve this. Everything else looks good. Follow-up as planned in 6 months. Thanks! [facility] 01-29-2025 History of Present illness Narrative [...] 25 mg, Oral, 2 times daily HYDROcodone-acetaminophen (Sublimity) 5-325 MG tablet 1 tablet, 3 times [...] Anxiety and depression 07/10/2023 Asthma ([facility]) 07/10/2023 Body mass index (BMI) 50.0-59.9, adult ([facility]) Cellulitis of left lower extremity Cervical cancer ([facility]) 09/17/2023 Chronic pain of both knees 09/17/2023 COPD (chronic obstructive pulmonary disease) ([facility]) 07/10/2023 COPD exacerbation ([facility]) 09/17/2023 Decreased functional mobility 09/17/2023 Diabetic neuropathy ([facility]) 07/10/2023 Dietary counseling and surveillance Edema 07/10/2023 Elevated sed rate Elevated WBC count Essential (primary) hypertension GERD (gastroesophageal reflux disease) 09/17/2023 Hyperlipidemia 09/17/2023 Hypertension 07/10/2023 Insomnia 09/17/2023 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) 09/17/2023 Pneumonia 09/17/2023 Proteinuria, unspecified Pulmonary hypertension ([facility]) 09/17/2023 Radiculopathy, lumbar region 09/17/2023 Tobacco user 09/17/2023 Type 2 diabetes mellitus with complication, with long-term current use of insulin ([facility]) 07/10/2023 Unilateral primary osteoarthritis, right [...] long-term current use of insulin ([facility]) - POCT glycosylated hemoglobin (Hb [...] 50.0 to 59.9 in adult ([facility]) Diet and exercise reviewed with the patient Follow up in about 4 months (around 06/01/2025). 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 Associated Problem(s): COPD [...] 25 mg, Oral, 2 times daily HYDROcodone-acetaminophen (Sublimity) 5-325 MG tablet 1 tablet, 3 times [...] Anxiety and depression 07/10/2023 Asthma ([facility]) 07/10/2023 Body mass index (BMI) 50.0-59.9, adult ([facility]) Cellulitis of left lower extremity Cervical cancer ([facility]) 09/17/2023 Chronic pain of both knees 09/17/2023 COPD (chronic obstructive pulmonary disease) ([facility]) 07/10/2023 COPD exacerbation ([facility]) 09/17/2023 Decreased functional mobility 09/17/2023 Diabetic neuropathy ([facility]) 07/10/2023 Dietary counseling and surveillance Edema 07/10/2023 Elevated sed rate Elevated WBC count Essential (primary) hypertension GERD (gastroesophageal reflux disease) 09/17/2023 Hyperlipidemia 09/17/2023 Hypertension 07/10/2023 Insomnia 09/17/2023 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 ([facility]) Lower extremity edema 09/17/2023 Mixed hyperlipidemia Morbid (severe) obesity due to excess calories ([facility]) Obstructive sleep apnea 07/10/2023 PAD (peripheral artery disease) 09/17/2023 Pancreatitis ([facility]) 09/17/2023 Pneumonia 09/17/2023 Proteinuria, unspecified Pulmonary hypertension ([facility]) 09/17/2023 Radiculopathy, lumbar region 09/17/2023 Tobacco user 09/17/2023 Type 2 diabetes mellitus with complication, with long-term current use of insulin ([facility]) 07/10/2023 Unilateral primary osteoarthritis, right [...] COPD (chronic obstructive pulmonary disease) ([facility]) Follows with verena Needs smoking cessation Current meds: duoneb, albuterol, daliresp, Asthma ([facility]) Current meds: albuterol, duoneb, 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 Hypertension Please check [...] long-term current use of insulin ([facility]) Check blood sugars daily, notify [...] amitriptyline (Elavil) 25 MG tablet Pulmonary hypertension ([facility]) Has seen [email or web address] Cardiology Hyperlipidemia On statin therapy Check labs [...] due to excess calories ([facility]) Discussed with patient their BMI (actual, [...] Associated Problem(s): Pulmonary hypertension (HCC) Has seen [facility] [[email or web address]] Cardiology Associated Problem(s): Hypertension Please check blood [...] a yearly basis documented in this encounter [facility] 01-26-2025 Instructions Mckayla Blas NP - 01/26/2025 6:00 PM EDT Please call the [facility] to schedule your mammogram: [phone]- ext [phone] documented in this encounter [facility] 01-06-2025 Note Cardiovascular Medic ine [facility] SUBJECTIVE Chief Complaint Patient presents with Congestive Heart Failure Hypertension Hyperlipidemia Mitzi Macias is a 54 y.o. female here for follow-up. PMHx: HFpEF, HTN, HLD, DM, longstanding heavy smoker, COPD, DANIEL, morbid obesity HPI 01/06/2025 Since last seen she was admitted to [facility] for AMS on 12/05/2024. 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 Vitamin D deficiency, unspecified Vitamin deficiency Past Medical History: Diagnosis Date COPD (chronic obstructive pulmonary disease) ([facility]) Diabetes mellitus ([facility]) Hyperlipidemia Hypertension Sleep apnea Family [...] , Rfl: ergocalciferol (Vitamin D-2) 1.25 MG (97429 Units) capsule, Take 1.25 mg by mouth., [...] and at bedtime., Disp: , Rfl: HYDROcodone-acetaminophen (Sublimity) 5-325 mg tablet, TAKE 1 TABLET BY MOUTH THREE TIMES A DAY NEEDED FOR PAIN MUST LAST 30 DAYS, Disp: , Rfl: insulin aspart (NovoLOG) 100 unit/mL (3 mL) injection pen, Novolog Flexpen U-100 Insulin aspart 100 unit/mL (3 mL) subcutaneous, Disp: , Rfl: insulin glargine (Lantus Solostar U-100 Insulin) 100 unit/mL (3 mL) injection pen (more content not included)... [facility] 01-06-2025 Note Patient is here toda [...] weight gain. Cardiovascular: Positive for leg swelling. [facility] 12-09-2024 History of Present illness Narrative [...] She was ultimately taken to [facility] ER, no tox screen was [...] 25 mg, Oral, 2 times daily HYDROcodone-acetaminophen (Sublimity) 5-325 MG tablet 1 tablet, 3 times [...] CT Albuminuria 09/17/2023 Angiomyolipoma Anxiety and depression ([facility]) 07/10/2023 Asthma 07/10/2023 Body mass index (BMI) 50.0-59.9, adult ([facility]) Cellulitis of left lower extremity Cervical cancer ([facility]) 09/17/2023 Chronic pain of both knees 09/17/2023 COPD (chronic obstructive pulmonary disease) ([facility]) 07/10/2023 COPD exacerbation ([facility]) 09/17/2023 Decreased functional mobility 09/17/2023 Diabetic neuropathy ([facility]) 07/10/2023 Dietary counseling and surveillance Edema 07/10/2023 Elevated sed rate Elevated WBC count Essential (primary) hypertension ([facility]) GERD (gastroesophageal reflux disease) 09/17/2023 Hyperlipidemia ([facility]) 09/17/2023 Hypertension ([facility]) 07/10/2023 Insomnia 09/17/2023 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 ([facility]) Lower extremity edema 09/17/2023 Mixed hyperlipidemia ([facility]) Morbid (severe) obesity due to excess calories ([facility]) Obstructive sleep apnea 07/10/2023 PAD (peripheral artery disease) ([facility]) 09/17/2023 Pancreatitis 09/17/2023 Pneumonia 09/17/2023 Proteinuria, unspecified Pulmonary hypertension ([facility]) 09/17/2023 Radiculopathy, lumbar region 09/17/2023 Tobacco user 09/17/2023 Type 2 diabetes mellitus with complication, with long-term current use of insulin ([facility]) 07/10/2023 Unilateral primary osteoarthritis, right hip 09/17/2023 [...] This Visit Hypertension ([facility]) Please check blood pressure daily and record DASH diet Limit caffeine Take medication as directed Contact office if chest pain, pressure, dizziness, shortness of breath, swelling legs Recommend slow position changes Current meds: hydralazine, lisinopril, Type 2 diabetes mellitus with complication, with long-term current use of insulin ([facility]) Check blood sugars daily, notify [...] is not wearing this today Pulmonary hypertension ([facility]) Has seen [facility] [[email or web address]] Cardiology Morbid (severe) obesity due to excess calories ([facility]) Discussed with patient their BMI [...] Associated Problem(s): Pulmonary hypertension (CMS/HCC) Has seen [facility] [[email or web address]] Cardiology Associated Problem(s): Hypertension (CMS/HCC) Please check [...] wearing this today documented in this encounter [facility] 12-09-2024 Instructions Mckayla Blas NP - 12/09/2024 10:00 AM EDT Keep appt with wound care today Keep fu with me, sooner if needed documented in this encounter [facility] 10-27-2024 History of Present illness Narrative Associated [...] 25 mg, Oral, 2 times daily HYDROcodone-acetaminophen (Sublimity) 5-325 MG tablet 1 tablet, 3 times [...] CT Albuminuria 09/17/2023 Angiomyolipoma Anxiety and depression ([facility]) 07/10/2023 Asthma 07/10/2023 Body mass index (BMI) 50.0-59.9, adult ([facility]) Cellulitis of left lower extremity Cervical cancer ([facility]) 09/17/2023 Chronic pain of both knees 09/17/2023 COPD (chronic obstructive pulmonary disease) ([facility]) 07/10/2023 COPD exacerbation ([facility]) 09/17/2023 Decreased functional mobility 09/17/2023 Diabetic neuropathy ([facility]) 07/10/2023 Dietary counseling and surveillance Edema 07/10/2023 Elevated sed rate Elevated WBC count Essential (primary) hypertension ([facility]) GERD (gastroesophageal reflux disease) 09/17/2023 Hyperlipidemia ([facility]) 09/17/2023 Hypertension ([facility]) 07/10/2023 Insomnia 09/17/2023 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 ([facility]) Lower extremity edema 09/17/2023 Mixed hyperlipidemia ([facility]) Morbid (severe) obesity due to excess calories ([facility]) Obstructive sleep apnea 07/10/2023 PAD (peripheral artery disease) ([facility]) 09/17/2023 Pancreatitis 09/17/2023 Pneumonia 09/17/2023 Proteinuria, unspecified Pulmonary hypertension ([facility]) 09/17/2023 Radiculopathy, lumbar region 09/17/2023 Tobacco user 09/17/2023 Type 2 diabetes mellitus with complication, with long-term current use of insulin ([facility]) 07/10/2023 Unilateral primary osteoarthritis, right [...] Visit Diabetic neuropathy ([facility]) - Primary Continue with cintia hudson mgmt is prescribing OARRS reviewed Fu in 3 months Goal: tighter glucose control, this has been improving, latest A1c is 7.4%!!! Hypertension ([facility]) Please check blood pressure daily [...] use of insulin ([facility]) Check blood sugars daily, notify [...] chewable tablet Anxiety and depression ([facility] [facility] Current meds: elavil, duloxtine, Relevant Medications DULoxetine (Cymbalta) [address] capsule Bilateral lower extremity edema Limit sodium , elevate legs, furosemide Relevant Medications furosemide (Lasix) 20 MG tablet potassium chloride ER (Micro-K) 10 MEQ ER capsule furosemide (Lasix) 40 MG tablet Insomnia Relevant Medications amitriptyline (Elavil) 25 MG tablet PAD (peripheral artery disease) ([facility]) Asa, statin Quit smoking BP [...] Relevant Medications ergocalciferol (Vitamin D2) 1.25 MG (19522 UT) capsule Gastro-esophageal reflux disease without esophagitis [...] long-term current use of insulin ([facility]) Check blood sugars daily, notify [...] duoneb, albuterol, daliresp, Associated Problem(s): Diabetic neuropathy ([facility]) Continue with cintia hudson is prescribing OARRS reviewed Fu in 3 months Goal: tighter glucose control, this has been improving, latest A1c is 7.4%!!! documented in this encounter [facility] 10-27-2024 Instructions Mckayla Blas NP - 10/27/2024 2:00 PM EDT No dose changes in meds You will be due for mammogram I will send order to [facility], they should call you to schedule If no call, please call [phone] ext [phone] documented in this encounter [facility] 10-08-2024 History of Present illness Narrative Images [...] or chew. ergocalciferol (Vitamin D2) 1.25 MG (40243 UT) capsule TAKE 1 CAPSULE BY MOUTH [...] 25 mg, Oral, 2 times daily HYDROcodone-acetaminophen (Sublimity) 5-325 MG tablet 1 tablet, 3 times [...] CT Albuminuria 09/17/2023 Angiomyolipoma Anxiety and depression ([facility]) 07/10/2023 Asthma ([facility]) 07/10/2023 Body mass index (BMI) 50.0-59.9, adult ([facility]) Cellulitis of left lower extremity Cervical cancer ([facility]) 09/17/2023 Chronic pain of both knees 09/17/2023 COPD (chronic obstructive pulmonary disease) ([facility]) 07/10/2023 COPD exacerbation ([facility]) 09/17/2023 Decreased functional mobility 09/17/2023 Diabetic neuropathy ([facility]) 07/10/2023 Dietary counseling and surveillance Edema 07/10/2023 Elevated sed rate Elevated WBC count Essential (primary) hypertension ([facility]) GERD (gastroesophageal reflux disease) 09/17/2023 Hyperlipidemia ([facility]) 09/17/2023 Hypertension ([facility]) 07/10/2023 Insomnia 09/17/2023 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 ([facility]) Lower extremity edema 09/17/2023 Mixed hyperlipidemia ([facility]) Morbid (severe) obesity due to excess calories ([facility]) Obstructive sleep apnea 07/10/2023 PAD (peripheral artery disease) ([facility]) 09/17/2023 Pancreatitis 09/17/2023 Pneumonia 09/17/2023 Proteinuria, unspecified Pulmonary hypertension ([facility]) 09/17/2023 Radiculopathy, lumbar region 09/17/2023 Tobacco user 09/17/2023 Type 2 diabetes mellitus with complication, with long-term current use of insulin ([facility]) 07/10/2023 Unilateral primary osteoarthritis, right hip 09/17/2023 [...] months (around 02/07/2025). documented in this encounter [facility] 08-27-2024 History of Present illness Narrative Associated [...] or chew. ergocalciferol (Vitamin D2) 1.25 MG (18770 UT) capsule TAKE 1 CAPSULE BY MOUTH [...] 25 mg, Oral, 2 times daily HYDROcodone-acetaminophen (Sublimity) 5-325 MG tablet 1 tablet, 3 times [...] Anxiety and depression ([facility]) 07/10/2023 Asthma ([facility]) 07/10/2023 Body mass index (BMI) 50.0-59.9, adult ([facility]) Cellulitis of left lower extremity Cervical cancer ([facility]) 09/17/2023 Chronic pain of both knees 09/17/2023 COPD (chronic obstructive pulmonary disease) ([facility]) 07/10/2023 COPD exacerbation ([facility]) 09/17/2023 Decreased functional mobility 09/17/2023 Diabetic neuropathy ([facility]) 07/10/2023 Dietary counseling and surveillance Edema 07/10/2023 Elevated sed rate Elevated WBC count Essential (primary) hypertension ([facility]) GERD (gastroesophageal reflux disease) 09/17/2023 Hyperlipidemia ([facility]) 09/17/2023 Hypertension ([facility]) 07/10/2023 Insomnia 09/17/2023 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 ([facility]) Lower extremity edema 09/17/2023 Mixed hyperlipidemia ([facility]) Morbid (severe) obesity due to excess calories ([facility]) Obstructive sleep apnea 07/10/2023 PAD (peripheral artery disease) ([facility]) 09/17/2023 Pancreatitis 09/17/2023 Pneumonia 09/17/2023 Proteinuria, unspecified Pulmonary hypertension ([facility]) 09/17/2023 Radiculopathy, lumbar region 09/17/2023 Tobacco user 09/17/2023 Type 2 diabetes mellitus with complication, with long-term current use of insulin ([facility]) 07/10/2023 Unilateral primary osteoarthritis, right hip 09/17/2023 [...] List Items Addressed This Visit Diabetic neuropathy ([facility]) Continue with cintia hudson mgmt is prescribing OARRS reviewed Fu in 3 months Goal: tighter glucose control Hypertension ([facility]) Please check blood pressure daily and [...] use of insulin ([facility]) Check blood sugars daily, notify [...] of the risks of continued smoking: stroke, OR, all forms of cancer, lung disease, and [...] of the risks of continued smoking: stroke, OR, all forms of cancer, lung disease, and [...] use of insulin ([facility]) Check blood sugars daily, notify [...] to excess calories ([facility]) Discussed with patient their BMI [...] Problem(s): Malignant neoplasm of cervix uteri, unspecified ([facility]) Had in the past, had [...] Asthma (CMS/HCC) Current meds: albuterol, 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, 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 Associated Problem(s): Obstructive [...] tighter glucose control documented in this encounter [facility] 08-08-2024 Note [place] [facility] Subjective Mitzi Macias is a [...] pain PAD (peripheral artery disease) ([facility]) Pneumonia Encounter for screening mammogram for malignant neoplasm of breast Pulmonary hypertension ([facility]) Radiculopathy, lumbar region Current smoker Type 2 diabetes mellitus with complication, with long-term current use of insulin ([facility]) Unilateral primary osteoarthritis, right hip Vaginal yeast infection Venous insufficiency Bad odor of urine Critical limb ischemia of right lower extremity ([facility]) Hyperpigmentation of skin 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 2 diabetes mellitus ([facility]) Myelolipoma of adrenal gland Venous ulcer of right leg ([facility]) HPI Patient was has history [...] obstructive pulmonary disease) ([facility]) Diabetes mellitus ([facility]) Hyperlipidemia Hypertension Sleep apnea Past [...] , Rfl: ergocalciferol (Vitamin D-2) 1.25 MG (75123 Units) capsule, Take 1.25 mg by mouth., [...] and at bedtime., Disp: , Rfl: HYDROcodone-acetaminophen (Sublimity) 5-325 mg tablet, TAKE 1 TABLET BY [...] TWICE DAILY, Disp: (more content not included)... [facility] 07-14-2024 History of Present illness Narrative [...] or chew. ergocalciferol (Vitamin D2) 1.25 MG (27717 UT) capsule TAKE 1 CAPSULE BY MOUTH ONE TIME PER WEEK furosemide (LASIX) 40 mg, Oral, Daily furosemide (LASIX) 20 mg, Oral, Daily PRN, Take in the afternoon as needed hydrALAZINE (APRESOLINE) 25 mg, Oral, 2 times daily HYDROcodone-acetaminophen (Sublimity) 5-325 MG tablet 1 tablet, 3 times [...] CT Albuminuria 09/17/2023 Angiomyolipoma Anxiety and depression ([facility]) 07/10/2023 Asthma ([facility]) 07/10/2023 Body mass index (BMI) 50.0-59.9, adult ([facility]) Cellulitis of left lower extremity Cervical cancer ([facility]) 09/17/2023 Chronic pain of both knees 09/17/2023 COPD (chronic obstructive pulmonary disease) ([facility]) 07/10/2023 COPD exacerbation ([facility]) 09/17/2023 Decreased functional mobility 09/17/2023 Diabetic neuropathy ([facility]) 07/10/2023 Dietary counseling and surveillance Edema 07/10/2023 Elevated sed rate Elevated WBC count Essential (primary) hypertension ([facility]) GERD (gastroesophageal reflux disease) 09/17/2023 Hyperlipidemia ([facility]) 09/17/2023 Hypertension ([facility]) 07/10/2023 Insomnia 09/17/2023 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 ([facility]) Lower extremity edema 09/17/2023 Mixed hyperlipidemia ([facility]) Morbid (severe) obesity due to excess calories ([facility]) Obstructive sleep apnea 07/10/2023 PAD (peripheral artery disease) ([facility]) 09/17/2023 Pancreatitis 09/17/2023 Pneumonia 09/17/2023 Proteinuria, unspecified Pulmonary hypertension ([facility]) 09/17/2023 Radiculopathy, lumbar region 09/17/2023 Tobacco user 09/17/2023 Type 2 diabetes mellitus with complication, with long-term current use of insulin ([facility]) 07/10/2023 Unilateral primary osteoarthritis, right [...] Visit Diabetic neuropathy ([facility]) Continue with tristan EAST reviewed Fu in 3 months COPD (chronic obstructive pulmonary disease) ([facility]) Stable at this time, no changes in meds Encouraged smoking cessation Cont with dr Yañez Hypertension ([facility]) - Primary Please check blood pressure daily and record DASH diet Limit caffeine Take medication as directed Contact office if chest pain, pressure, dizziness, shortness of breath, swelling legs Recommend slow position changes Current meds: hydralazine, lisinopril, Type 2 diabetes mellitus with complication, with long-term current use of insulin ([facility]) Check blood sugars daily, notify [...] take over prescribing PAD (peripheral artery disease) ([facility]) Asa, statin Quit smoking BP [...] of the risks of continued smoking: stroke, OR, all forms of cancer, lung disease, and [...] of right lower extremity ([facility]) Saw vascular, does have narrowing in arteries in legs, and thus the wounds not healing At this point they strongly urge to quit smoking or risk limb amputation Cont asa and statin Also good blood pressure and sugar control Venous ulcer of right leg ([facility]) Encounter for smoking cessation counseling Relevant Medications nicotine (Nicoderm, Step 1) 21 MG/24HR patch Other Visit Diagnoses Type 2 diabetes mellitus with unspecified complications ([facility]) Quitting smokinppd, chantix not helped, ] Face time with pt, spent 15 minutes with pt Associated Problem(s): Tobacco user The patient has been advised of the risks of continued smoking: stroke, OR, all forms of cancer, lung disease, and [...] long-term current use of insulin ([facility]) Check blood sugars daily, notify [...] in 3 months documented in this encounter [facility] 06-11-2024 Hospital Discharge instructions Patient Education 06/11/2024 [...] require a prescription. You can also purchase eqht-kgt-ftfzgjj medicines. Medicines may have nicotine in them [...] and encouragement. Call telephone quitlines, such as 0-910-ZJNW-NOW, reach out to support groups, or work [...] provider. Document Revised: 06/16/2022 Document Reviewed: 06/16/2022 [employer] Patient Education 2023 [employer]. 06/11/2024 10:39:22 Dietary Guidelines to Help Prevent [...] include: ?8 oz (237 mL) of milk, ammtcht-vrvpfqzjjklw-txnps milk, and calcium-fortifiedfruit juice. Calcium-fortified means that [...] ?Spinach (cooked), rhubarb, beets, sweet potatoes, and Armenian chard. ?Peanuts. ?Potato chips, singaporean fries, and baked potatoes with skin on. ?Nuts and nut products. ?Chocolate. If you regularly take a diuretic medicine, make sure to eat at least 1 or 2 servings of fruits or vegetables that are high in potassium each day. These include: ?Avocado. ?Banana. ?[place], prune, carrot, or tomato juice. ?Baked potato. [...] magnesium, fish oil, or vitamin B6. Take acad-aby-ztbmwxn and prescription medicines only as told by [...] Casseroles. Pizza. Lasagna. Frozen meals. Potato chips. Anguillan fries. The items listed above may not [...] provider. Document Revised: 10/05/2022 Document Reviewed: 10/05/2022 [employer] Patient Education 2023 [employer]. Follow Up Care 05/06/2024 08:24:56 With:REGLA PHIPPS, Elbert Joya, URL Address: [facility] [address], [place] [address]- When: Unknown [facility] [place] 05-27-2024 History of Present illness Narrative Mitzi [...] or chew. ergocalciferol (Vitamin D2) 1.25 MG (91848 UT) capsule TAKE 1 CAPSULE BY MOUTH ONE TIME PER WEEK furosemide (LASIX) 20 mg, Oral, Daily PRN, Take in the afternoon as needed furosemide (LASIX) 40 mg, Oral, Daily Glucose Blood (ACCU-CHEK JAQUI PLUS ) 4 times daily hydrALAZINE (APRESOLINE) 25 mg, Oral, 2 times daily HYDROcodone-acetaminophen (Sublimity) 5-325 MG tablet 1 tablet, 3 times [...] CT Albuminuria 09/17/2023 Angiomyolipoma Anxiety and depression ([facility]) 07/10/2023 Asthma ([facility]) 07/10/2023 Body mass index (BMI) 50.0-59.9, adult ([facility]) Cellulitis of left lower extremity Cervical cancer ([facility]) 09/17/2023 Chronic pain of both knees 09/17/2023 COPD (chronic obstructive pulmonary disease) ([facility]) 07/10/2023 COPD exacerbation ([facility]) 09/17/2023 Decreased functional mobility 09/17/2023 Diabetic neuropathy ([facility]) 07/10/2023 Dietary counseling and surveillance Edema 07/10/2023 Elevated sed rate Elevated WBC count GERD (gastroesophageal reflux disease) 09/17/2023 Hyperlipidemia ([facility]) 09/17/2023 Hypertension ([facility]) 07/10/2023 Insomnia 09/17/2023 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 ([facility]) Lower extremity edema 09/17/2023 Morbid (severe) obesity due to excess calories ([facility]) Obstructive sleep apnea 07/10/2023 PAD (peripheral artery disease) ([facility]) 09/17/2023 Pancreatitis 09/17/2023 Pneumonia 09/17/2023 Proteinuria, unspecified Pulmonary hypertension ([facility]) 09/17/2023 Radiculopathy, lumbar region 09/17/2023 Tobacco user 09/17/2023 Type 2 diabetes mellitus with complication, with long-term current use of insulin ([facility]) 07/10/2023 Unilateral primary osteoarthritis, right hip 09/17/2023 [...] use of insulin ([facility]) - POCT glucose manually resulted - POCT glycosylated hemoglobin (Hb A1C) docked device We will continue with Lantus 58, lispro 02/16/12 according to meal size, Mounjaro 15 mg once weekly, Farxiga 5 mg once a day Encounter for dietary consultation Vitamin D deficiency Primary hypertension ([facility]) To follow with her PCP Insulin long-term use ([facility]) Hyperlipemia, mixed ([facility]) Continue with Zocor 10 mg once daily Microalbuminuria Class 3 severe obesity due to excess calories with serious comorbidity and body mass index (BMI) of 50.0 to 59.9 in adult ([facility]) Diet and exercise reviewed with [...] being taken. She does not see a oracle obiee developer.Eye exam is not current. Hypertension This is [...] or chew. ergocalciferol (Vitamin D2) 1.25 MG (25082 UT) capsule TAKE 1 CAPSULE BY MOUTH ONE TIME PER WEEK furosemide (LASIX) 20 mg, Oral, Daily PRN, Take in the afternoon as needed furosemide (LASIX) 40 mg, Oral, Daily Glucose Blood (ACCU-CHEK JAQUI PLUS ) 4 times daily HumaLOG KWIKPEN 100 UNIT/ML injection Subcutaneous hydrALAZINE (APRESOLINE) 25 mg, Oral, 2 times daily HYDROcodone-acetaminophen (Sublimity) 5-325 MG tablet 1 tablet, 3 times [...] CT Albuminuria 09/17/2023 Angiomyolipoma Anxiety and depression ([facility]) 07/10/2023 Asthma ([facility]) 07/10/2023 Cellulitis of left lower extremity Cervical cancer ([facility]) 09/17/2023 Chronic pain of both knees 09/17/2023 COPD (chronic obstructive pulmonary disease) ([facility]) 07/10/2023 COPD exacerbation ([facility]) 09/17/2023 Decreased functional mobility 09/17/2023 Diabetic neuropathy ([facility]) 07/10/2023 Edema 07/10/2023 Elevated sed rate Elevated WBC count GERD (gastroesophageal reflux disease) 09/17/2023 Hyperlipidemia ([facility]) 09/17/2023 Hypertension ([facility]) 07/10/2023 Insomnia 09/17/2023 Lower extremity edema 09/17/2023 Obstructive sleep apnea 07/10/2023 PAD (peripheral artery disease) ([facility]) 09/17/2023 Pancreatitis 09/17/2023 Pneumonia 09/17/2023 Pulmonary hypertension ([facility]) 09/17/2023 Radiculopathy, lumbar region 09/17/2023 Tobacco user 09/17/2023 Type 2 diabetes mellitus with complication, with long-term current use of insulin ([facility]) 07/10/2023 Unilateral primary osteoarthritis, right hip 09/17/2023 [...] dr Yañez Hypertension ([facility]) Stable on current meds Refill meds Relevant Medications hydrALAZINE (Apresoline) 25 MG tablet lisinopril 20 MG tablet Type 2 diabetes mellitus with complication, with long-term current use of insulin ([facility]) Check blood sugars daily, follow [...] chewable tablet Anxiety and depression ([facility]) Relevant Medications DULoxetine (Cymbalta) 60 MG [...] mellitus with unspecified complications ([facility]) Relevant Medications dapagliflozin (Farxiga) 10 MG Gastro-esophageal reflux disease without esophagitis Relevant Medications omeprazole (PriLOSEC) [address] capsule Edema, unspecified Relevant Medications potassium chloride ER (Micro-K) 10 MEQ ER capsule Edema Relevant Medications potassium chloride ER (Micro-K) 10 MEQ ER capsule Chronic obstructive pulmonary disease, unspecified ([facility]) Relevant Medications Roflumilast 500 MCG tablet documented in this encounter [facility] 11-15-2022 Hospital Discharge instructions Patient Education [...] include: ?8 oz (237 mL) of milk, zxvcobk-acwtnscosufz-fchmo milk, and calcium-fortifiedfruit juice. Calcium-fortified means that [...] ?Spinach (cooked), rhubarb, beets, sweet potatoes, and Armenian chard. ?Peanuts. ?Potato chips, singaporean fries, and baked potatoes with skin on. ?Nuts and nut products. ?Chocolate. If you regularly take a diuretic medicine, make sure to eat at least 1 or 2 servings of fruits or vegetables that are high in potassium each day. These include: ?Avocado. ?Banana. ?[place], prune, carrot, or tomato juice. ?Baked potato. [...] magnesium, fish oil, or vitamin B6. Take jisx-ift-wblfpnr and prescription medicines only as told by [...] Casseroles. Pizza. Lasagna. Frozen meals. Potato chips. Anguillan fries. The items listed above may not [...] provider. Document Revised: 03/06/2022 Document Reviewed: 03/06/2022 [employer] Patient Education 2022 [employer]. Follow Up Care 02/06/2022 11:44:09 With:SARAH VEGA PA-C, URL Address: [address] [place] [address] When: Unknown [facility] [place] 08-24-2022 Note CONSULTATION CONSULTATION DATE: [...] We maintain her on pain medication with Sublimity 5/325 t.i.d., diclofenac 75 mg b.i.d. Her [...] her at this point. A refill for Sublimity 5/325 t.i.d. and diclofenac 75 mg b.i.d. will be sent to the pharmacy. Vitamin compliance and nutrition were discussed and enforced. I did highly encourage her to use exercise bands to increase the strength in her lower extremities. We will see her in three months' time, unless otherwise indicated, and patient agrees. [facility] 05-11-2022 Note CONSULTATION CONSULTATION DATE: 05/11/2022 [...] 150. Medications include Lyrica 300 mg b.i.d., Sublimity 5/325 t.i.d., diclofenac 75 mg b.i.d. and [...] her medications today. We will maintain Lyrica, Sublimity and diclofenac at the set dose and frequency. We will follow-up in the clinic in three months' time. The patient is in agreement to this. Vitamin importance and nutrition were discussed. [facility] 04-20-2022 Note CONSULTATION CONSULTATION DATE: 04/20/2022 [...] medications include Tylenol, Lyrica 300 mg b.i.d., Sublimity 5/325 t.i.d., amitriptyline, diclofenac and duloxetine. Patient's [...] be followed up in the clinic. [facility] 03-08-2022 Evaluation note Encounter Date Diagnosis [...] to the DANIEL. Thrombocytopenia is unclear etiology. [employer] Other 08-15-2022 Evaluation note* Encounter Date Diagnosis [...] follow with Dr. Souza and Dr. Arauz. [place] [employer] Other 08-01-2022 Hospital Discharge instructions Patient Education [...] fried and sweet foods. General instructions Take vncf-kni-ylgtujy and prescription medicines only as told by [...] 04/21/2010 Document Revised: 10/16/2019 Document Reviewed: 07/11/2018 [employer] Patient Education 2020 [employer]. Follow Up Care 01/05/2022 12:02:03 With:REGLA PHIPPS, Elbert R, URL Address: [facility] [address] [place] [address] [phone] When:Within 6 Month(s) Comments:w/ repeat CT A/P [facility] 07-14-2022 NoteCONSULTATION PROCEDURE DATE: 01/19/2022 PRE AND [...] today. Medications include Lyrica 300 mg b.i.d., Sublimity 5/325 t.i.d., diclofenac 75 mg b.i.d. and [...] Approved by: GIL VALENZUELA . 01/27/2022 14:15[facility]00[facility] Future Appointments Appointment Date:08/14/2022 09:15:00 AM Scheduled Provider:Elbert ARAUZ MD Location:[facility] Appointment Type:URO Office Visit [facility] evaluation + Plan note Future Appointments Appointment Date:04/22/2024 10:00:00 AM Scheduled Provider:SARAH VEGA PA-C Location:[facility] Appointment Type:URO Office Visit [facility] evaluation note* Diagnosis Type 2 diabetes mellitus [...] use of insulin ([facility]) Non-seasonal allergic rhinitis, unspecified trigger Type 2 diabetes mellitus with unspecified complications ([facility]) Anxiety and depression ([facility]) Gastro-esophageal reflux disease without esophagitis Edema, unspecified Edema Diabetic polyneuropathy associated with type 2 diabetes mellitus ([facility]) Chronic obstructive pulmonary disease, unspecified ([facility]) Pulmonary emphysema, unspecified emphysema type ([facility]) Bilateral lower extremity edema Tobacco user Tobacco use disorder Hyperpigmentation of skin Other dyschromia documented in this encounter [facility] HealthcareEvaluation note* Diagnosis Obstructive sleep apnea- Primary Obstructive sleep apnea (adult) (pediatric) Pulmonary emphysema, unspecified emphysema type ([facility]) Primary hypertension ([facility]) Unspecified essential hypertension Type 2 diabetes mellitus with complication, with long-term current use of insulin ([facility]) Anxiety and depression ([facility]) Bilateral lower extremity edema Pulmonary emphysema, unspecified emphysema type ([facility])- Primary Primary hypertension ([facility]) Unspecified essential hypertension Class 3 severe obesity with serious comorbidity and body mass index (BMI) of 50.0 to 59.9 in adult, unspecified obesity type ([facility]) Obstructive sleep apnea Obstructive sleep apnea (adult) (pediatric) Pulmonary hypertension ([facility]) Other chronic pulmonary heart diseases Tobacco user Tobacco use disorder Cardiomegaly Primary hypertension ([facility])- Primary Unspecified essential hypertension Gastroesophageal reflux disease, unspecified whether esophagitis present Type 2 diabetes mellitus with complication, with long-term current use of insulin ([facility]) Mixed hyperlipidemia ([facility]) Mixed hyperlipidemia Tobacco user Tobacco use disorder Encounter for screening mammogram for malignant neoplasm of breast Chronic obstructive pulmonary disease, unspecified ([facility]) Other specified chronic obstructive pulmonary disease ([facility]) Anxiety and depression ([facility]) Edema, unspecified Edema Hyperlipidemia, unspecified ([facility]) Diabetic polyneuropathy associated with type 2 diabetes mellitus ([facility]) Gout, unspecified cause, unspecified chronicity, unspecified site Non-seasonal allergic rhinitis, unspecified trigger Bilateral lower extremity edema COPD exacerbation ([facility]) Obstructive chronic bronchitis with exacerbation Pulmonary emphysema, unspecified emphysema type ([facility]) Venous insufficiency Unspecified venous (peripheral) insufficiency Candidiasis of breast COPD exacerbation ([facility])- Primary Obstructive chronic bronchitis with [...] disorder, single episode, mild (HCC) ([facility]) Major depressive disorder, single episode, [...] (CMS/HCC) Unspecified essential hypertension Insulin long-term use ([facility]) Encounter for long-term (current) use of insulin Hyperlipemia, mixed ([facility]) Mixed hyperlipidemia Microalbuminuria Proteinuria Class 3 severe obesity due to excess calories with serious comorbidity and body mass index (BMI) of 50.0 to 59.9 in adult ([facility]) documented in this encounter [facility] HealthcareEvaluation note* Diagnosis Hyperlipidemia, unspecified ([facility]) Bilateral lower extremity edema documented in this encounter [facility] HealthcareEvaluation note* Diagnosis Vitamin D deficiency, unspecified documented in this encounter [facility] HealthcareEvaluation note* Diagnosis Obstructive sleep apnea- Primary Obstructive sleep apnea (adult) (pediatric) Pulmonary emphysema, unspecified emphysema type ([facility]) Primary hypertension ([facility]) Unspecified essential hypertension Type 2 diabetes mellitus with complication, with long-term current use of insulin ([facility]) Anxiety and depression ([facility]) Bilateral lower extremity edema Pulmonary emphysema, unspecified emphysema type ([facility])- Primary Primary hypertension ([facility]) Unspecified essential hypertension Class 3 severe obesity with serious comorbidity and body mass index (BMI) of 50.0 to 59.9 in adult, unspecified obesity type ([facility]) Obstructive sleep apnea Obstructive sleep apnea (adult) (pediatric) Pulmonary hypertension ([facility]) Other chronic pulmonary heart diseases Tobacco user Tobacco use disorder Cardiomegaly Primary hypertension ([facility])- Primary Unspecified essential hypertension Gastroesophageal reflux disease, unspecified whether esophagitis present Type 2 diabetes mellitus with complication, with long-term current use of insulin ([facility]) Mixed hyperlipidemia ([facility]) Mixed hyperlipidemia Tobacco user Tobacco use disorder Encounter for screening mammogram for malignant neoplasm of breast Chronic obstructive pulmonary disease, unspecified ([facility]) Other specified chronic obstructive pulmonary disease ([facility]) Anxiety and depression ([facility]) Edema, unspecified Edema Hyperlipidemia, unspecified ([facility]) Diabetic polyneuropathy associated with type 2 diabetes mellitus ([facility]) Gout, unspecified cause, unspecified chronicity, unspecified site Non-seasonal allergic rhinitis, unspecified trigger Bilateral lower extremity edema COPD exacerbation ([facility]) Obstructive chronic bronchitis with exacerbation Pulmonary emphysema, unspecified emphysema type ([facility]) Venous insufficiency Unspecified venous (peripheral) insufficiency Candidiasis of breast COPD exacerbation ([facility])- Primary Obstructive chronic bronchitis with exacerbation Pulmonary hypertension ([facility]) Other chronic pulmonary heart diseases [...] of breast Chronic obstructive pulmonary disease, unspecified ([facility]) Other specified chronic obstructive pulmonary disease (CMS/HCC) Anxiety and depression (CMS/HCC) Edema, unspecified Edema Hyperlipidemia, unspecified ([facility]) Diabetic polyneuropathy associated with type 2 diabetes mellitus ([facility]) Gout, unspecified cause, unspecified chronicity, unspecified site Non-seasonal allergic rhinitis, unspecified trigger Bilateral lower extremity edema COPD exacerbation ([facility]) Obstructive chronic bronchitis with exacerbation Pulmonary emphysema, unspecified emphysema type (CMS/HCC) Venous insufficiency Unspecified venous (peripheral) insufficiency Candidiasis of breast COPD exacerbation (CMS/HCC)- Primary Obstructive chronic bronchitis with exacerbation Pulmonary hypertension (CMS/HCC) Other chronic pulmonary heart diseases Class 3 severe obesity with serious comorbidity and body mass index (BMI) of 50.0 to 59.9 in adult, unspecified obesity type ([facility]/HCC) Encounter for subsequent annual wellness visit (AWV) in Medicare patient- Primary Type 2 diabetes mellitus with unspecified complications (CMS/HCC) Pulmonary emphysema, unspecified emphysema type (CMS/HCC) Moderate persistent asthma without complication (CMS/HCC) Primary hypertension (CMS/HCC) Unspecified essential hypertension Type 2 diabetes mellitus with complication, with long-term current use of insulin ([facility]) Class 3 severe obesity with serious comorbidity and body mass index (BMI) of 50.0 to 59.9 in adult, unspecified obesity type (CMS/HCC) Tobacco user Tobacco use disorder Other headache syndrome Malignant neoplasm of cervix uteri, unspecified (CMS/HCC) Other specified disorders of adrenal gland (CMS/HCC) Major depressive disorder, single episode, mild (HCC) ([facility]/HCC) Major depressive disorder, single episode, mild [...] long-term current use of insulin ([facility]) Non-seasonal allergic rhinitis, unspecified trigger Type 2 diabetes mellitus with unspecified complications ([facility]) Anxiety and depression ([facility]) Gastro-esophageal reflux disease without esophagitis Edema, unspecified Edema Diabetic polyneuropathy associated with type 2 diabetes mellitus ([facility]) Chronic obstructive pulmonary disease, unspecified ([facility]) Pulmonary emphysema, unspecified emphysema type (CMS/HCC) Bilateral lower extremity edema Tobacco user Tobacco use disorder Hyperpigmentation of skin Other dyschromia Primary hypertension (CMS/HCC)- Primary Unspecified essential hypertension Diabetic polyneuropathy associated with type 2 diabetes mellitus (CMS/HCC) Pulmonary emphysema, unspecified emphysema type (CMS/HCC) Critical limb ischemia of right lower extremity (CMS/HCC) PAD (peripheral artery disease) ([facility]) Unspecified peripheral vascular disease Gastroesophageal reflux disease, unspecified whether esophagitis present Bilateral lower extremity edema Venous ulcer of right leg ([facility]) Type 2 diabetes mellitus with complication, with long-term current use of insulin ([facility]) Tobacco user Tobacco use disorder Encounter for smoking cessation counseling Kidney stone Calculus of kidney Adrenal mass 1 cm to 4 cm in diameter ([facility]) Radiculopathy, lumbar region Thoracic or lumbosacral neuritis or radiculitis, unspecified Non-seasonal allergic rhinitis, unspecified trigger Type 2 diabetes mellitus with unspecified complications (CMS/HCC) documented in this encounter [facility] HealthcareEvaluation note* Diagnosis Obstructive sleep apnea- Primary Obstructive sleep apnea (adult) (pediatric) Pulmonary emphysema, unspecified emphysema type (CMS/HCC) Primary hypertension ([facility]) Unspecified essential hypertension Type 2 diabetes mellitus with complication, with long-term current use of insulin ([facility]) Anxiety and depression (CMS/[facility]) Bilateral lower extremity edema Pulmonary emphysema, unspecified emphysema type ([facility]/HCC)- Primary Primary hypertension ([facility]) Unspecified essential hypertension Class 3 severe obesity with serious comorbidity and body mass index (BMI) of 50.0 to 59.9 in adult, unspecified obesity type ([facility]) Obstructive sleep apnea Obstructive sleep apnea (adult) (pediatric) Pulmonary hypertension ([facility]) Other chronic pulmonary heart diseases Tobacco user Tobacco use disorder Cardiomegaly Primary hypertension ([facility])- Primary Unspecified essential hypertension Gastroesophageal reflux disease, unspecified whether esophagitis present Type 2 diabetes mellitus with complication, with long-term current use of insulin ([facility]) Mixed hyperlipidemia ([facility]) Mixed hyperlipidemia Tobacco user Tobacco use disorder Encounter for screening mammogram for malignant neoplasm of breast Chronic obstructive pulmonary disease, unspecified ([facility]) Other specified chronic obstructive pulmonary disease ([facility]) Anxiety and depression ([facility]) Edema, unspecified Edema Hyperlipidemia, unspecified ([facility]) Diabetic polyneuropathy associated with type 2 diabetes mellitus ([facility]) Gout, unspecified cause, unspecified chronicity, unspecified site Non-seasonal allergic rhinitis, unspecified trigger Bilateral lower extremity edema COPD exacerbation ([facility]) Obstructive chronic bronchitis with exacerbation Pulmonary emphysema, unspecified emphysema type ([facility]) Venous insufficiency Unspecified venous (peripheral) insufficiency Candidiasis of breast COPD exacerbation ([facility])- Primary Obstructive chronic bronchitis with exacerbation Pulmonary hypertension ([facility]) Other chronic pulmonary heart diseases Class 3 severe obesity with serious comorbidity and body mass index (BMI) of 50.0 to 59.9 in adult, unspecified obesity type ([facility]) Encounter for subsequent annual wellness visit (AWV) in Medicare patient- Primary Type 2 diabetes mellitus with unspecified complications ([facility]) Pulmonary emphysema, unspecified emphysema type ([facility]) Moderate persistent asthma without complication ([facility]) Primary hypertension ([facility]) Unspecified essential hypertension Type 2 diabetes mellitus with complication, with long-term current use of insulin ([facility]) Class 3 severe obesity with serious comorbidity and body mass index (BMI) of 50.0 to 59.9 in adult, unspecified obesity type ([facility]) Tobacco user Tobacco use disorder [...] long-term current use of insulin ([facility]) Non-seasonal allergic rhinitis, unspecified trigger Type 2 diabetes mellitus with unspecified complications (CMS/HCC) Anxiety and depression ([facility]) Gastro-esophageal reflux disease without esophagitis [...] Critical limb ischemia of right lower extremity ([facility]) PAD (peripheral artery disease) ([facility]) Unspecified peripheral vascular disease Gastroesophageal reflux disease, unspecified whether esophagitis present Bilateral lower extremity edema Venous ulcer of right leg ([facility]) Type 2 diabetes mellitus with complication, with long-term current use of insulin (CMS/HCC) Tobacco user Tobacco use disorder Encounter for smoking cessation counseling Kidney stone Calculus of kidney Adrenal mass 1 cm to 4 cm in diameter ([facility]) Radiculopathy, lumbar region Thoracic or lumbosacral neuritis or radiculitis, unspecified Non-seasonal allergic rhinitis, unspecified trigger Type 2 diabetes mellitus with unspecified complications (CMS/HCC) Anxiety and depression (CMS/HCC)- Primary Morbid (severe) obesity due to excess calories ([facility]) Body mass index (BMI) 50.0-59.9, adult ([facility]) Malignant neoplasm of cervix uteri, unspecified ([facility]) Diabetic polyneuropathy associated with type 2 diabetes mellitus ([facility]) Chronic diastolic heart failure ([facility]) Chronic diastolic heart failure Primary hypertension ([facility]) Unspecified essential hypertension 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 ([facility]) Gastroesophageal reflux disease, unspecified whether esophagitis present Bilateral lower extremity edema Type 2 diabetes mellitus with complication, with long-term current use of insulin ([facility]) Tobacco user Tobacco use disorder Mixed hyperlipidemia ([facility]) Mixed hyperlipidemia Gout, unspecified cause, unspecified chronicity, unspecified site Vitamin deficiency Unspecified vitamin deficiency Gastro-esophageal reflux disease without esophagitis Edema, unspecified Edema Hyperlipidemia, unspecified ([facility]) Encounter for smoking cessation counseling Venous ulcer of right leg ([facility]) Antibiotic-induced yeast infection documented in this encounter [facility] HealthcareEvaluation note* Diagnosis Obstructive sleep apnea- Primary Obstructive sleep apnea (adult) (pediatric) Pulmonary emphysema, unspecified emphysema type ([facility]) Primary hypertension ([facility]) Unspecified essential hypertension Type 2 diabetes mellitus with complication, with long-term current use of insulin ([facility]) Anxiety and depression ([facility]) Bilateral lower extremity edema Pulmonary emphysema, unspecified emphysema type ([facility])- Primary Primary hypertension ([facility]) Unspecified essential hypertension Class 3 severe obesity with serious comorbidity and body mass index (BMI) of 50.0 to 59.9 in adult, unspecified obesity type Obstructive sleep apnea Obstructive sleep apnea (adult) (pediatric) Pulmonary hypertension ([facility]) Other chronic pulmonary heart diseases Tobacco user Tobacco use disorder Cardiomegaly Primary hypertension ([facility])- Primary Unspecified essential hypertension Gastroesophageal reflux disease, unspecified whether esophagitis present Type 2 diabetes mellitus with complication, with long-term current use of insulin ([facility]) Mixed hyperlipidemia ([facility]) Mixed hyperlipidemia Tobacco user Tobacco use disorder Encounter for screening mammogram for malignant neoplasm of breast Chronic obstructive pulmonary disease, unspecified Other specified chronic obstructive pulmonary disease Anxiety and depression ([facility]) Edema, unspecified Edema Hyperlipidemia, unspecified ([facility]) Diabetic polyneuropathy associated with type 2 diabetes mellitus ([facility]) Gout, unspecified cause, unspecified chronicity, [...] disorder, single episode, mild (HCC) ([facility]) Major depressive disorder, single episode, [...] lower extremity (CMS/HCC) PAD (peripheral artery disease) ([facility]) Unspecified peripheral vascular disease Gastroesophageal reflux disease, unspecified whether esophagitis present Bilateral lower extremity edema Venous ulcer of right leg ([facility]) Type 2 diabetes mellitus with complication, with long-term current use of insulin ([facility]) Tobacco user Tobacco use disorder Encounter for smoking cessation counseling Kidney stone Calculus of kidney Adrenal mass 1 cm to 4 cm in diameter ([facility]) Radiculopathy, lumbar region Thoracic or lumbosacral neuritis or radiculitis, unspecified Non-seasonal allergic rhinitis, unspecified trigger Type 2 diabetes mellitus with unspecified complications Anxiety and depression ([facility])- Primary Morbid (severe) obesity due to excess calories ([facility]) Body mass index (BMI) 50.0-59.9, adult ([facility]) Malignant neoplasm of cervix uteri, unspecified Diabetic polyneuropathy associated with type 2 diabetes mellitus ([facility]) Chronic diastolic heart failure ([facility]) Chronic diastolic heart failure Primary hypertension ([facility]) Unspecified essential hypertension 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 Gastroesophageal reflux disease, unspecified whether esophagitis present Bilateral lower extremity edema Type 2 diabetes mellitus with complication, with long-term current use of insulin ([facility]) Tobacco user Tobacco use disorder Mixed hyperlipidemia ([facility]) Mixed hyperlipidemia Gout, unspecified cause, unspecified chronicity, unspecified site Vitamin deficiency Unspecified vitamin deficiency Gastro-esophageal reflux disease without esophagitis Edema, unspecified Edema Hyperlipidemia, unspecified ([facility]) Encounter for smoking cessation counseling Venous ulcer of right leg ([facility]) Antibiotic-induced yeast infection Type 2 diabetes mellitus with hyperglycemia, with long-term current use of insulin ([facility])- Primary Encounter for dietary consultation Vitamin D deficiency Primary hypertension ([facility]) Unspecified essential hypertension Insulin long-term use ([facility]) Encounter for long-term (current) use of insulin Hyperlipemia, mixed ([facility]) Mixed hyperlipidemia Microalbuminuria Proteinuria Class 3 severe obesity due to excess calories with serious comorbidity and body mass index (BMI) of 50.0 to 59.9 in adult documented in this encounter [facility] HealthcareEvaluation note* Diagnosis Obstructive sleep apnea- Primary Obstructive sleep apnea (adult) (pediatric) Pulmonary emphysema, unspecified emphysema type ([facility]) Primary hypertension ([facility]) Unspecified essential hypertension Type 2 diabetes mellitus with complication, with long-term current use of insulin (CMS/[facility]) Anxiety and depression (CMS/[facility]) Bilateral lower extremity edema Pulmonary emphysema, unspecified emphysema type (CMS/HCC)- Primary Primary hypertension ([facility]) Unspecified essential hypertension Class 3 severe obesity with serious comorbidity and body mass index (BMI) of 50.0 to 59.9 in adult, unspecified obesity type Obstructive sleep apnea Obstructive sleep apnea (adult) (pediatric) Pulmonary hypertension (CMS/HCC) Other chronic pulmonary heart diseases Tobacco user Tobacco use disorder Cardiomegaly Primary hypertension (CMS/[facility])- Primary Unspecified essential hypertension Gastroesophageal reflux disease, unspecified whether esophagitis present Type 2 diabetes mellitus with complication, with long-term current use of insulin (CMS/[facility]) Mixed hyperlipidemia (CMS/[facility]) Mixed hyperlipidemia Tobacco user Tobacco use disorder Encounter for screening mammogram for malignant neoplasm of breast Chronic obstructive pulmonary disease, unspecified Other specified chronic obstructive pulmonary disease Anxiety and depression (CMS/[facility]) Edema, unspecified Edema Hyperlipidemia, unspecified (CMS/[facility]) Diabetic polyneuropathy associated with type 2 diabetes mellitus ([facility]) Gout, unspecified cause, unspecified chronicity, unspecified site Non-seasonal allergic rhinitis, unspecified trigger Bilateral lower extremity edema COPD exacerbation (CMS/[facility]) Obstructive chronic bronchitis with exacerbation Pulmonary emphysema, unspecified emphysema type (CMS/HCC) Venous insufficiency Unspecified venous (peripheral) insufficiency Candidiasis of breast COPD exacerbation (CMS/[facility])- Primary Obstructive chronic bronchitis with exacerbation Pulmonary hypertension (CMS/[facility]) Other chronic pulmonary heart diseases Class 3 severe obesity with serious comorbidity and body mass index (BMI) of 50.0 to 59.9 in adult, unspecified obesity type Encounter for subsequent annual wellness visit (AWV) in Medicare patient- Primary Type 2 diabetes mellitus with unspecified complications Pulmonary emphysema, unspecified emphysema type (CMS/[facility]) Moderate persistent asthma without complication (CMS/[facility]) Primary hypertension ([facility]) Unspecified essential hypertension Type 2 diabetes mellitus with complication, with long-term current use of insulin ([facility]) Class 3 severe obesity with serious comorbidity and body mass index (BMI) of 50.0 to 59.9 in adult, unspecified obesity type Tobacco user Tobacco use disorder Other headache syndrome Malignant neoplasm of cervix uteri, unspecified Other specified disorders of adrenal gland Major depressive disorder, single episode, mild (HCC) (CMS/[facility]) Major depressive disorder, single episode, mild 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 exposed Chronic respiratory failure, unspecified whether with hypoxia or hypercapnia Disorder of adrenal gland, unspecified Non-pressure chronic ulcer of other part of right lower leg limited to breakdown of skin ([facility]) Non-recurrent acute suppurative otitis media of left ear without spontaneous rupture of tympanic membrane Primary hypertension ([facility])- Primary Unspecified essential hypertension Insomnia Insomnia, unspecified Type 2 diabetes mellitus with complication, with long-term current use of insulin ([facility]) Non-seasonal allergic rhinitis, unspecified trigger Type 2 diabetes mellitus with unspecified complications Anxiety and depression ([facility]) Gastro-esophageal reflux disease without esophagitis Edema, unspecified Edema Diabetic polyneuropathy associated with type 2 diabetes mellitus ([facility]) Chronic obstructive pulmonary disease, unspecified Pulmonary emphysema, unspecified emphysema type ([facility]) Bilateral lower extremity edema Tobacco user Tobacco use disorder Hyperpigmentation of skin Other dyschromia Primary hypertension ([facility])- Primary Unspecified essential hypertension Diabetic polyneuropathy associated with type 2 diabetes mellitus ([facility]) Pulmonary emphysema, unspecified emphysema type ([facility]) Critical limb ischemia of right lower extremity ([facility]) PAD (peripheral artery disease) ([facility]) Unspecified peripheral vascular disease Gastroesophageal reflux disease, unspecified whether esophagitis present Bilateral lower extremity edema Venous ulcer of right leg ([facility]) Type 2 diabetes mellitus with complication, with long-term current use of insulin ([facility]) Tobacco user Tobacco use disorder Encounter for smoking cessation counseling Kidney stone Calculus of kidney Adrenal mass 1 cm to 4 cm in diameter ([facility]) Radiculopathy, lumbar region Thoracic or lumbosacral neuritis or radiculitis, unspecified Non-seasonal allergic rhinitis, unspecified trigger Type 2 diabetes mellitus with unspecified complications Anxiety and depression ([facility])- Primary Morbid (severe) obesity due to excess calories ([facility]) Body mass index (BMI) 50.0-59.9, adult ([facility]) Malignant neoplasm of cervix uteri, unspecified Diabetic polyneuropathy associated with type 2 diabetes mellitus ([facility]) Chronic diastolic heart failure ([facility]) Chronic diastolic heart failure Primary hypertension ([facility]) Unspecified essential hypertension 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 Gastroesophageal reflux disease, unspecified whether esophagitis present Bilateral lower extremity edema Type 2 diabetes mellitus with complication, with long-term current use of insulin ([facility]) Tobacco user Tobacco use disorder Mixed hyperlipidemia ([facility]) Mixed hyperlipidemia Gout, unspecified cause, unspecified chronicity, unspecified site Vitamin deficiency Unspecified vitamin deficiency Gastro-esophageal reflux disease without esophagitis Edema, unspecified Edema Hyperlipidemia, unspecified ([facility]) Encounter for smoking cessation counseling Venous ulcer of right leg ([facility]) Antibiotic-induced yeast infection Chronic obstructive pulmonary disease, unspecified documented in this encounter [facility] HealthcareEvaluation note* Diagnosis Obstructive sleep apnea- Primary Obstructive sleep apnea (adult) (pediatric) Pulmonary emphysema, unspecified emphysema type ([facility]) Primary hypertension ([facility]) Unspecified essential hypertension Type 2 diabetes mellitus with complication, with long-term current use of insulin ([facility]) Anxiety and depression ([facility]) Bilateral lower extremity edema Pulmonary emphysema, unspecified emphysema type ([facility])- Primary Primary hypertension ([facility]) Unspecified essential hypertension Class 3 severe obesity with serious comorbidity and body mass index (BMI) of 50.0 to 59.9 in adult, unspecified obesity type Obstructive sleep apnea Obstructive sleep apnea (adult) (pediatric) Pulmonary hypertension ([facility]) Other chronic pulmonary heart diseases Tobacco user Tobacco use disorder Cardiomegaly Primary hypertension ([facility])- Primary Unspecified essential hypertension Gastroesophageal reflux disease, unspecified whether esophagitis present Type 2 diabetes mellitus with complication, with long-term current use of insulin ([facility]) Mixed hyperlipidemia ([facility]) Mixed hyperlipidemia Tobacco user Tobacco use disorder Encounter for screening mammogram for malignant neoplasm of breast Chronic obstructive pulmonary disease, unspecified Other specified chronic obstructive pulmonary disease Anxiety and depression ([facility]) Edema, unspecified Edema Hyperlipidemia, unspecified ([facility]) Diabetic polyneuropathy associated with type 2 diabetes mellitus ([facility]) Gout, unspecified cause, unspecified chronicity, unspecified site Non-seasonal allergic rhinitis, unspecified trigger Bilateral lower extremity edema COPD exacerbation ([facility]) Obstructive chronic bronchitis with exacerbation Pulmonary emphysema, unspecified emphysema type ([facility]) Venous insufficiency Unspecified venous (peripheral) insufficiency Candidiasis of breast COPD exacerbation ([facility])- Primary Obstructive chronic bronchitis with exacerbation Pulmonary hypertension ([facility]) Other chronic pulmonary heart diseases Class 3 severe obesity with serious comorbidity and body mass index (BMI) of 50.0 to 59.9 in adult, unspecified obesity type Encounter for subsequent annual wellness visit (AWV) in Medicare patient- Primary Type 2 diabetes mellitus with unspecified complications Pulmonary emphysema, unspecified emphysema type ([facility]) Moderate persistent asthma without complication (CMS/HCC) Primary hypertension ([facility]) Unspecified essential hypertension Type 2 diabetes mellitus with complication, with long-term current use of insulin ([facility]) Class 3 severe obesity with serious comorbidity and body mass index (BMI) of 50.0 to 59.9 in adult, unspecified obesity type Tobacco user Tobacco use disorder Other headache syndrome Malignant neoplasm of cervix uteri, unspecified Other specified disorders of adrenal gland Major depressive disorder, single episode, mild (HCC) ([facility]) Major depressive disorder, single episode, mild 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 exposed Chronic respiratory failure, unspecified whether with hypoxia or hypercapnia Disorder of adrenal gland, unspecified Non-pressure chronic ulcer of other part of right lower leg limited to breakdown of skin ([facility]) Non-recurrent acute suppurative otitis media of left ear without spontaneous rupture of tympanic membrane Primary hypertension ([facility])- Primary Unspecified essential hypertension Insomnia Insomnia, unspecified Type 2 diabetes mellitus with complication, with long-term current use of insulin ([facility]) Non-seasonal allergic rhinitis, unspecified trigger Type 2 diabetes mellitus with unspecified complications Anxiety and depression ([facility]) Gastro-esophageal reflux disease without esophagitis Edema, unspecified Edema Diabetic polyneuropathy associated with type 2 diabetes mellitus ([facility]) Chronic obstructive pulmonary disease, unspecified Pulmonary emphysema, unspecified emphysema type ([facility]/HCC) Bilateral lower extremity edema Tobacco user Tobacco use disorder Hyperpigmentation of skin Other dyschromia Primary hypertension (CMS/HCC)- Primary Unspecified essential hypertension Diabetic polyneuropathy associated with type 2 diabetes mellitus (CMS/[facility]) Pulmonary emphysema, unspecified emphysema type (CMS/HCC) Critical limb ischemia of right lower extremity ([facility]) PAD (peripheral artery disease) ([facility]) Unspecified peripheral vascular disease Gastroesophageal reflux disease, unspecified whether esophagitis present Bilateral lower extremity edema Venous ulcer of right leg ([facility]) Type 2 diabetes mellitus with complication, with long-term current use of insulin ([facility]) Tobacco user Tobacco use disorder Encounter for smoking cessation counseling Kidney stone Calculus of kidney Adrenal mass 1 cm to 4 cm in diameter ([facility]) Radiculopathy, lumbar region Thoracic or lumbosacral neuritis or radiculitis, unspecified Non-seasonal allergic rhinitis, unspecified trigger Type 2 diabetes mellitus with unspecified complications Anxiety and depression ([facility])- Primary Morbid (severe) obesity due to excess calories ([facility]) Body mass index (BMI) 50.0-59.9, adult ([facility]) Malignant neoplasm of cervix uteri, unspecified Diabetic polyneuropathy associated with type 2 diabetes mellitus ([facility]) Chronic diastolic heart failure ([facility]) Chronic diastolic heart failure Primary hypertension ([facility]) Unspecified essential hypertension 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 Gastroesophageal reflux disease, unspecified whether esophagitis present Bilateral lower extremity edema Type 2 diabetes mellitus with complication, with long-term current use of insulin ([facility]) Tobacco user Tobacco use disorder Mixed hyperlipidemia ([facility]) Mixed hyperlipidemia Gout, unspecified cause, unspecified chronicity, unspecified site Vitamin deficiency Unspecified vitamin deficiency Gastro-esophageal reflux disease without esophagitis Edema, unspecified Edema Hyperlipidemia, unspecified ([facility]) Encounter for smoking cessation counseling Venous ulcer of right leg ([facility]) Antibiotic-induced yeast infection Primary hypertension ([facility] [place] Primary Unspecified essential hypertension Diabetic polyneuropathy associated with type 2 diabetes mellitus ([facility]) Chronic diastolic heart failure ([facility]) Chronic diastolic heart failure Bilateral lower extremity edema Morbid (severe) obesity due to excess calories ([facility]) Type 2 diabetes mellitus with complication, with long-term current use of insulin ([facility]) Anxiety and depression ([facility]) Cigarette nicotine dependence without complication Encounter for screening mammogram for malignant neoplasm of breast Insomnia Insomnia, unspecified Non-seasonal allergic rhinitis, unspecified trigger Type 2 diabetes mellitus with unspecified complications Vitamin D deficiency, unspecified Gastro-esophageal reflux disease without esophagitis PAD (peripheral artery disease) ([facility]) Unspecified peripheral vascular disease Gastroesophageal reflux disease, unspecified whether esophagitis present Venous ulcer of right leg ([facility]) documented in this encounter [facility] HealthcareEvaluation note* Diagnosis Obstructive sleep apnea- Primary Obstructive sleep apnea (adult) (pediatric) Pulmonary emphysema, unspecified emphysema type ([facility]) Primary hypertension Unspecified essential hypertension [...] unspecified obesity type ([facility]) Obstructive sleep apnea Obstructive sleep [...] to 59.9 in adult, unspecified obesity type ([facility] [place] Encounter for subsequent annual wellness visit (AWV) [...] unspecified obesity type ([facility]) Tobacco user Tobacco use disorder [...] limited to breakdown of skin ([facility]) Non-recurrent acute suppurative otitis media of left ear without spontaneous rupture of tympanic membrane Primary hypertension- Primary Unspecified essential hypertension Insomnia Insomnia, unspecified Type 2 diabetes mellitus with complication, with long-term current use of insulin ([facility]) Non-seasonal allergic rhinitis, unspecified trigger Type 2 diabetes mellitus with unspecified complications ([facility]) Anxiety and depression Gastro-esophageal reflux disease without esophagitis Edema, unspecified Edema Diabetic polyneuropathy associated with type 2 diabetes mellitus ([facility]) Chronic obstructive pulmonary disease, unspecified ([facility]) Pulmonary emphysema, unspecified emphysema type ([facility]) Bilateral lower extremity edema Tobacco user Tobacco use disorder Hyperpigmentation of skin Other dyschromia Primary hypertension- Primary Unspecified essential hypertension Diabetic polyneuropathy associated with type 2 diabetes mellitus ([facility]) Pulmonary emphysema, unspecified emphysema type ([facility]) Critical limb ischemia of right lower extremity ([facility]) PAD (peripheral artery disease) Unspecified peripheral vascular disease Gastroesophageal reflux disease, unspecified whether esophagitis present Bilateral lower extremity edema Venous ulcer of right leg ([facility]) Type 2 diabetes mellitus with complication, with long-term current use of insulin ([facility]) Tobacco user Tobacco use disorder Encounter for smoking cessation counseling Kidney stone Calculus of kidney Adrenal mass 1 cm to 4 cm in diameter ([facility]) Radiculopathy, lumbar region Thoracic or lumbosacral neuritis or radiculitis, unspecified Non-seasonal allergic rhinitis, unspecified trigger Type 2 diabetes mellitus with unspecified complications ([facility]) Anxiety and depression- Primary Morbid (severe) obesity due to excess calories ([facility] [place] Body mass index (BMI) 50.0-59.9, adult ([facility] [place]) Malignant neoplasm of cervix uteri, unspecified ([facility]) Diabetic polyneuropathy associated with type 2 diabetes mellitus ([facility]) Chronic diastolic heart failure (HCC) Chronic diastolic heart failure Primary hypertension Unspecified essential hypertension 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 ([facility]) Gastroesophageal reflux disease, unspecified whether esophagitis present Bilateral lower extremity edema Type 2 diabetes mellitus with complication, with long-term current use of insulin ([facility]) Tobacco user Tobacco use disorder [...] to excess calories ([facility]) Type 2 diabetes mellitus with [...] of left lower extremity- Primary COPD exacerbation ([facility]) Obstructive chronic bronchitis with exacerbation Primary hypertension Unspecified essential hypertension Pulmonary hypertension (HCC) Other chronic pulmonary heart diseases Morbid (severe) obesity due to excess calories ([facility]) Type 2 diabetes mellitus with complication, with long-term current use of insulin ([facility]) Anxiety and depression Fever, unspecified fever cause Hyperlipidemia, unspecified Tobacco user Tobacco use disorder Encounter for smoking cessation counseling documented in this encounter [facility] HealthcareEvaluation note* Diagnosis Obstructive sleep apnea- Primary Obstructive sleep apnea (adult) (pediatric) Pulmonary emphysema, unspecified emphysema type ([facility]) Primary hypertension ([facility]) Unspecified essential hypertension Type 2 diabetes mellitus with complication, with long-term current use of insulin ([facility]) Anxiety and depression ([facility]) Bilateral lower extremity edema Pulmonary emphysema, unspecified emphysema type ([facility])- Primary Primary hypertension ([facility]) Unspecified essential hypertension Class 3 severe obesity with serious comorbidity and body mass index (BMI) of 50.0 to 59.9 in adult, unspecified obesity type Obstructive sleep apnea Obstructive sleep apnea (adult) (pediatric) Pulmonary hypertension ([facility]) Other chronic pulmonary heart diseases Tobacco user Tobacco use disorder Cardiomegaly Primary hypertension ([facility])- Primary Unspecified essential hypertension Gastroesophageal reflux disease, unspecified whether esophagitis present Type 2 diabetes mellitus with complication, with long-term current use of insulin ([facility]) Mixed hyperlipidemia ([facility]) Mixed hyperlipidemia Tobacco user Tobacco use disorder Encounter for screening mammogram for malignant neoplasm of breast Chronic obstructive pulmonary disease, unspecified Other specified chronic obstructive pulmonary disease Anxiety and depression (CMS/[facility]) Edema, unspecified Edema Hyperlipidemia, unspecified (CMS/[facility]) Diabetic polyneuropathy associated with type 2 diabetes mellitus (CMS/[facility]) Gout, unspecified cause, unspecified chronicity, unspecified site Non-seasonal allergic rhinitis, unspecified trigger Bilateral lower extremity edema COPD exacerbation (CMS/[facility]) Obstructive chronic bronchitis with exacerbation Pulmonary emphysema, unspecified emphysema type (CMS/HCC) Venous insufficiency Unspecified venous (peripheral) insufficiency Candidiasis of breast COPD exacerbation (CMS/HCC)- Primary Obstructive chronic bronchitis with exacerbation Pulmonary hypertension (CMS/[facility]) Other chronic pulmonary heart diseases Class 3 severe obesity with serious comorbidity and body mass index (BMI) of 50.0 to 59.9 in adult, unspecified obesity type Encounter for subsequent annual wellness visit (AWV) in Medicare patient- Primary Type 2 diabetes mellitus with unspecified complications Pulmonary emphysema, unspecified emphysema type (CMS/[facility]) Moderate persistent asthma without complication (CMS/[facility]) Primary hypertension (CMS/[facility]) Unspecified essential hypertension Type 2 diabetes mellitus with complication, with long-term current use of insulin ([facility]) Class 3 severe obesity with serious comorbidity and body mass index (BMI) of 50.0 to 59.9 in adult, unspecified obesity type Tobacco user Tobacco use disorder Other headache syndrome Malignant neoplasm of cervix uteri, unspecified Other specified disorders of adrenal gland Major depressive disorder, single episode, mild (HCC) (CMS/[facility]) Major depressive disorder, single episode, mild 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 exposed Chronic respiratory failure, unspecified whether with hypoxia or hypercapnia Disorder of adrenal gland, unspecified Non-pressure chronic ulcer of other part of right lower leg limited to breakdown of skin (CMS/[facility]) Non-recurrent acute suppurative otitis media of left ear without spontaneous rupture of tympanic membrane Primary hypertension ([facility])- Primary Unspecified essential hypertension Insomnia Insomnia, unspecified Type 2 diabetes mellitus with complication, with long-term current use of insulin (CMS/[facility]) Non-seasonal allergic rhinitis, unspecified trigger Type 2 diabetes mellitus with unspecified complications Anxiety and depression (CMS/[facility]) Gastro-esophageal reflux disease without esophagitis Edema, unspecified Edema Diabetic polyneuropathy associated with type 2 diabetes mellitus (CMS/[facility]) Chronic obstructive pulmonary disease, unspecified Pulmonary emphysema, unspecified emphysema type (CMS/HCC) Bilateral lower extremity edema Tobacco user Tobacco use disorder Hyperpigmentation of skin Other dyschromia Primary hypertension ([facility])- Primary Unspecified essential hypertension Diabetic polyneuropathy associated with type 2 diabetes mellitus ([facility]) Pulmonary emphysema, unspecified emphysema type ([facility]) Critical limb ischemia of right lower extremity ([facility]) PAD (peripheral artery disease) ([facility]) Unspecified peripheral vascular disease Gastroesophageal reflux disease, unspecified whether esophagitis present Bilateral lower extremity edema Venous ulcer of right leg ([facility]) Type 2 diabetes mellitus with complication, with long-term current use of insulin ([facility]) Tobacco user Tobacco use disorder Encounter for smoking cessation counseling Kidney stone Calculus of kidney Adrenal mass 1 cm to 4 cm in diameter ([facility]) Radiculopathy, lumbar region Thoracic or lumbosacral neuritis or radiculitis, unspecified Non-seasonal allergic rhinitis, unspecified trigger Type 2 diabetes mellitus with unspecified complications Anxiety and depression ([facility])- Primary Morbid (severe) obesity due to excess calories ([facility]) Body mass index (BMI) 50.0-59.9, adult ([facility]) Malignant neoplasm of cervix uteri, unspecified Diabetic polyneuropathy associated with type 2 diabetes mellitus ([facility]) Chronic diastolic heart failure ([facility]) Chronic diastolic heart failure Primary hypertension [place] [place] Unspecified essential hypertension 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 Gastroesophageal reflux disease, unspecified whether esophagitis present Bilateral lower extremity edema Type 2 diabetes mellitus with complication, with long-term current use of insulin ([facility]) Tobacco user Tobacco use disorder Mixed hyperlipidemia ([facility]) Mixed hyperlipidemia Gout, unspecified cause, unspecified chronicity, unspecified site Vitamin deficiency Unspecified vitamin deficiency Gastro-esophageal reflux disease without esophagitis Edema, unspecified Edema Hyperlipidemia, unspecified ([facility]) Encounter for smoking cessation counseling Venous ulcer of right leg ([facility]) Antibiotic-induced yeast infection Primary hypertension ([facility])- Primary Unspecified essential hypertension Diabetic polyneuropathy associated with type 2 diabetes mellitus ([facility]) Chronic diastolic heart failure ([facility]) Chronic diastolic heart failure Bilateral lower extremity edema Morbid (severe) obesity due to excess calories ([facility]) Type 2 diabetes mellitus with complication, with long-term current use of insulin ([facility]) Anxiety and depression ([facility] [place]) Cigarette nicotine dependence without complication Encounter for screening mammogram for malignant neoplasm of breast Insomnia Insomnia, unspecified Non-seasonal allergic rhinitis, unspecified trigger Type 2 diabetes mellitus with unspecified complications Vitamin D deficiency, unspecified Gastro-esophageal reflux disease without esophagitis PAD (peripheral artery disease) ([facility]) Unspecified peripheral vascular disease Gastroesophageal reflux disease, unspecified whether esophagitis present Venous ulcer of right leg ([facility]) Cellulitis of left lower extremity- Primary COPD exacerbation ([facility]) Obstructive chronic bronchitis with exacerbation Primary hypertension ([facility]) Unspecified essential hypertension Pulmonary hypertension ([facility]) Other chronic pulmonary heart diseases Morbid (severe) obesity due to excess calories ([facility]) Type 2 diabetes mellitus with complication, with long-term current use of insulin ([facility]) Anxiety and depression ([facility]) Fever, unspecified fever cause documented in this encounter [facility] Diagnosis Obstructive sleep apnea- Primary Obstructive sleep apnea (adult) (pediatric) Pulmonary emphysema, unspecified emphysema type (HCC) Primary hypertension Unspecified essential hypertension Type 2 diabetes mellitus with complication, with long-term current use of insulin ([facility]) Anxiety and depression Bilateral lower extremity edema Pulmonary emphysema, unspecified emphysema type (HCC)- Primary Primary hypertension Unspecified essential hypertension Class 3 severe obesity with serious comorbidity and body mass index (BMI) of 50.0 to 59.9 in adult, unspecified obesity type ([facility]) Obstructive sleep apnea Obstructive sleep [...] to 59.9 in adult, unspecified obesity type ([facility] [place] Encounter for subsequent annual wellness visit (AWV) in Medicare patient- Primary Type 2 diabetes mellitus with unspecified complications (HCC) Pulmonary emphysema, unspecified emphysema type ([facility]) Moderate persistent asthma without complication (HCC) Primary hypertension Unspecified essential hypertension Type 2 diabetes mellitus with complication, with long-term current use of insulin ([facility]) Class 3 severe obesity with serious comorbidity and body mass index (BMI) of 50.0 to 59.9 in adult, unspecified obesity type ([facility] [place] Tobacco user Tobacco use disorder Other headache syndrome Malignant neoplasm of cervix uteri, unspecified ([facility]) Other specified disorders of adrenal gland ([facility]) Major depressive disorder, single episode, mild Major depressive disorder, single episode, mild 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 exposed ([facility]) Chronic respiratory failure, unspecified whether with hypoxia or hypercapnia ([facility]) Disorder of adrenal gland, unspecified ([facility]) Non-pressure chronic ulcer of other part of right lower leg limited to breakdown of skin ([facility]) Non-recurrent acute suppurative otitis media of left ear without spontaneous rupture of tympanic membrane Primary hypertension- Primary Unspecified essential hypertension Insomnia Insomnia, unspecified Type 2 diabetes mellitus with complication, with long-term current use of insulin ([facility]) Non-seasonal allergic rhinitis, unspecified trigger Type 2 diabetes mellitus with unspecified complications ([facility]) Anxiety and depression Gastro-esophageal reflux disease without esophagitis Edema, unspecified Edema Diabetic polyneuropathy associated with type 2 diabetes mellitus ([facility]) Chronic obstructive pulmonary disease, unspecified (HCC) Pulmonary emphysema, unspecified emphysema type ([facility]) Bilateral lower extremity edema Tobacco user Tobacco use disorder Hyperpigmentation of skin Other dyschromia Primary hypertension- Primary Unspecified essential hypertension Diabetic polyneuropathy associated with type 2 diabetes mellitus ([facility]) Pulmonary emphysema, unspecified emphysema type ([facility]) Critical limb ischemia of right lower extremity ([facility]) PAD (peripheral artery disease) Unspecified peripheral vascular disease Gastroesophageal reflux disease, unspecified whether esophagitis present Bilateral lower extremity edema Venous ulcer of right leg ([facility]) Type 2 diabetes mellitus with complication, with long-term current use of insulin ([facility]) Tobacco user Tobacco use disorder Encounter for smoking cessation counseling Kidney stone Calculus of kidney Adrenal mass 1 cm to 4 cm in diameter ([facility]) Radiculopathy, lumbar region Thoracic or lumbosacral neuritis or radiculitis, unspecified Non-seasonal allergic rhinitis, unspecified trigger Type 2 diabetes mellitus with unspecified complications ([facility]) Anxiety and depression- Primary Morbid (severe) obesity due to excess calories ([facility]) Body mass index (BMI) 50.0-59.9, adult ([facility]) Malignant neoplasm of cervix uteri, unspecified (HCC) Diabetic polyneuropathy associated with type 2 diabetes mellitus (HCC) Chronic diastolic heart failure (HCC) Chronic diastolic heart failure Primary hypertension Unspecified essential hypertension 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 ([facility]) Gastroesophageal reflux disease, unspecified whether esophagitis present Bilateral lower extremity edema Type 2 diabetes mellitus with complication, with long-term current use of insulin ([facility]) Tobacco user Tobacco use disorder [...] to excess calories ([facility]) Type 2 diabetes mellitus with complication, with long-term current use of insulin (HCC) Anxiety and depression Cigarette nicotine dependence without complication Encounter for screening mammogram for malignant neoplasm of breast Insomnia Insomnia, unspecified Non-seasonal allergic rhinitis, unspecified trigger Type 2 diabetes mellitus with unspecified complications ([facility]) Vitamin D deficiency, unspecified Gastro-esophageal [...] to excess calories ([facility]) Type 2 diabetes mellitus with complication, with long-term current use of insulin ([facility]) Anxiety and depression Fever, unspecified [...] to excess calories ([facility]) Type 2 diabetes mellitus with hyperglycemia, with long-term current use of insulin ([facility]) documented in this encounter [facility] [...] unspecified obesity type ([facility]) Obstructive sleep apnea Obstructive sleep [...] with type 2 diabetes mellitus ([facility]) Gout, unspecified cause, unspecified chronicity, [...] to 59.9 in adult, unspecified obesity type ([facility] [place] Encounter for subsequent annual wellness visit (AWV) in Medicare patient- Primary Type 2 diabetes mellitus with unspecified complications ([facility]) Pulmonary emphysema, unspecified emphysema type ([facility]) Moderate persistent asthma without complication (HCC) Primary hypertension Unspecified essential hypertension Type 2 diabetes mellitus with complication, with long-term current use of insulin ([facility]) Class 3 severe obesity with serious comorbidity and body mass index (BMI) of 50.0 to 59.9 in adult, unspecified obesity type ([facility] [place] Tobacco user Tobacco use disorder Other headache syndrome Malignant neoplasm of cervix uteri, unspecified ([facility]) Other specified disorders of adrenal gland ([facility]) Major depressive disorder, single episode, mild Major depressive disorder, single episode, mild 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 exposed ([facility]) Chronic respiratory failure, unspecified whether with hypoxia or hypercapnia ([facility]) Disorder of adrenal gland, unspecified ([facility]) Non-pressure chronic ulcer of other part of right lower leg limited to breakdown of skin ([facility]) Non-recurrent acute suppurative otitis media of left ear without spontaneous rupture of tympanic membrane Primary hypertension- Primary Unspecified essential hypertension Insomnia Insomnia, unspecified Type 2 diabetes mellitus with complication, with long-term current use of insulin ([facility]) Non-seasonal allergic rhinitis, unspecified trigger Type 2 diabetes mellitus with unspecified complications ([facility]) Anxiety and depression Gastro-esophageal reflux disease without esophagitis Edema, unspecified Edema Diabetic polyneuropathy associated with type 2 diabetes mellitus ([facility]) Chronic obstructive pulmonary disease, unspecified ([facility]) Pulmonary emphysema, unspecified emphysema type ([facility]) Bilateral lower extremity edema Tobacco user Tobacco use disorder Hyperpigmentation of skin Other dyschromia Primary hypertension- Primary Unspecified essential hypertension Diabetic polyneuropathy associated with type 2 diabetes mellitus ([facility]) Pulmonary emphysema, unspecified emphysema type ([facility]) Critical limb ischemia of right lower extremity ([facility]) PAD (peripheral artery disease) Unspecified peripheral vascular disease Gastroesophageal reflux disease, unspecified whether esophagitis present Bilateral lower extremity edema Venous ulcer of right leg ([facility]) Type 2 diabetes mellitus with complication, with long-term current use of insulin ([facility]) Tobacco user Tobacco use disorder Encounter for smoking cessation counseling Kidney stone Calculus of kidney Adrenal mass 1 cm to 4 cm in diameter ([facility]) Radiculopathy, lumbar region Thoracic or lumbosacral neuritis or radiculitis, unspecified Non-seasonal allergic rhinitis, unspecified trigger Type 2 diabetes mellitus with unspecified complications ([facility]) Anxiety and depression- Primary Morbid (severe) obesity due to excess calories ([facility]) Body mass index (BMI) 50.0-59.9, adult ([facility]) Malignant neoplasm of cervix uteri, unspecified (HCC) Diabetic polyneuropathy associated with type 2 diabetes mellitus ([facility]) Chronic diastolic heart failure (HCC) Chronic diastolic heart failure Primary hypertension Unspecified essential hypertension 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 ([facility]) Gastroesophageal reflux disease, unspecified whether esophagitis present Bilateral lower extremity edema Type 2 diabetes mellitus with complication, with long-term current use of insulin ([facility]) Tobacco user Tobacco use disorder Mixed hyperlipidemia Mixed hyperlipidemia Gout, unspecified cause, unspecified chronicity, unspecified site Vitamin deficiency Unspecified vitamin deficiency Gastro-esophageal reflux disease without esophagitis Edema, unspecified Edema Hyperlipidemia, unspecified Encounter for smoking cessation counseling Venous ulcer of right leg ([facility]) Antibiotic-induced yeast infection Primary hypertension- Primary Unspecified essential hypertension Diabetic polyneuropathy associated with type 2 diabetes mellitus (HCC) Chronic diastolic heart failure (HCC) Chronic diastolic heart failure Bilateral lower extremity edema Morbid (severe) obesity due to excess calories ([facility]) Type 2 diabetes mellitus with complication, with long-term current use of insulin ([facility]) Anxiety and depression Cigarette nicotine dependence without complication Encounter for screening mammogram for malignant neoplasm of breast Insomnia Insomnia, unspecified Non-seasonal allergic rhinitis, unspecified trigger Type 2 diabetes mellitus with unspecified complications ([facility]) Vitamin D deficiency, unspecified Gastro-esophageal reflux disease without esophagitis PAD (peripheral artery disease) Unspecified peripheral vascular disease Gastroesophageal reflux disease, unspecified whether esophagitis present Venous ulcer of right leg (HCC) Cellulitis of left lower extremity- Primary COPD exacerbation ([facility]) Obstructive chronic bronchitis with exacerbation Primary hypertension Unspecified essential hypertension Pulmonary hypertension (HCC) Other chronic pulmonary heart diseases Morbid (severe) obesity due to excess calories ([facility]) Type 2 diabetes mellitus with complication, with long-term current use of insulin ([facility]) Anxiety and depression Fever, unspecified [...] Morbid (severe) obesity due to excess calories ([facility] [place]) Encounter for dietary consultation- Primary Type 2 diabetes mellitus with hyperglycemia, with long-term current use of insulin ([facility]) Vitamin D deficiency Primary hypertension Unspecified essential hypertension Insulin long-term use ([facility]) Encounter for long-term (current) use of insulin Hyperlipemia, mixed Mixed hyperlipidemia Microalbuminuria Proteinuria Class 3 severe obesity due to excess calories with serious comorbidity and body mass index (BMI) of 50.0 to 59.9 in adult ([facility] [place]) documented in this encounter [facility] Healthcare[facility]* Diagnosis Obstructive sleep apnea- Primary Obstructive sleep apnea (adult) (pediatric) Pulmonary emphysema, unspecified emphysema type (HCC) Primary hypertension Unspecified essential hypertension Type 2 diabetes mellitus with complication, with long-term current use of insulin ([facility]) Anxiety and depression Bilateral lower extremity edema Pulmonary emphysema, unspecified emphysema type (HCC)- Primary Primary hypertension Unspecified essential hypertension Class 3 severe obesity with serious comorbidity and body mass index (BMI) of 50.0 to 59.9 in adult, unspecified obesity type ([facility] [place]) Obstructive sleep apnea Obstructive sleep apnea (adult) (pediatric) Pulmonary hypertension (HCC) Other chronic pulmonary heart diseases Tobacco user Tobacco use disorder Cardiomegaly Primary hypertension- Primary Unspecified essential hypertension Gastroesophageal reflux disease, unspecified whether esophagitis present Type 2 diabetes mellitus with complication, with long-term current use of insulin ([facility]) Mixed hyperlipidemia Mixed hyperlipidemia Tobacco user Tobacco use disorder Encounter for screening mammogram for malignant neoplasm of breast Chronic obstructive pulmonary disease, unspecified (HCC) Other specified chronic obstructive pulmonary disease (HCC) Anxiety and depression Edema, unspecified Edema Hyperlipidemia, unspecified Diabetic polyneuropathy associated with type 2 diabetes mellitus ([facility]) Gout, unspecified cause, unspecified chronicity, [...] to 59.9 in adult, unspecified obesity type ([facility] [place] Encounter for subsequent annual wellness visit (AWV) in Medicare patient- Primary Type 2 diabetes mellitus with unspecified complications (HCC) Pulmonary emphysema, unspecified emphysema type ([facility]) Moderate persistent asthma without complication (HCC) Primary hypertension Unspecified essential hypertension Type 2 diabetes mellitus with complication, with long-term current use of insulin ([facility]) Class 3 severe obesity with serious comorbidity and body mass index (BMI) of 50.0 to 59.9 in adult, unspecified obesity type ([facility] [place] Tobacco user Tobacco use disorder Other headache syndrome Malignant neoplasm of cervix uteri, unspecified (HCC) Other specified disorders of adrenal gland (HCC) Major depressive disorder, single episode, mild Major depressive disorder, single episode, mild 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 exposed ([facility]) Chronic respiratory failure, unspecified whether [...] with type 2 diabetes mellitus ([facility]) Pulmonary emphysema, unspecified emphysema type (HCC) Critical limb ischemia of right lower extremity ([facility] [place]) PAD (peripheral artery disease) Unspecified peripheral vascular disease Gastroesophageal reflux disease, unspecified whether esophagitis present Bilateral lower extremity edema Venous ulcer of right leg ([facility]) Type 2 diabetes mellitus with complication, with long-term current use of insulin ([facility]) Tobacco user Tobacco use disorder Encounter for smoking cessation counseling Kidney stone Calculus of kidney Adrenal mass 1 cm to 4 cm in diameter ([facility]) Radiculopathy, lumbar region Thoracic or lumbosacral neuritis or radiculitis, unspecified Non-seasonal allergic rhinitis, unspecified trigger Type 2 diabetes mellitus with unspecified complications ([facility]) Anxiety and depression- Primary Morbid (severe) obesity due to excess calories ([facility] [place]) Body mass index (BMI) 50.0-59.9, adult ([facility] [place]) Malignant neoplasm of cervix uteri, unspecified ([facility]) Diabetic polyneuropathy associated with type 2 diabetes mellitus ([facility]) Chronic diastolic heart failure ([facility]) Chronic diastolic heart failure Primary hypertension Unspecified essential hypertension 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 ([facility]) Gastroesophageal reflux disease, unspecified whether esophagitis present Bilateral lower extremity edema Type 2 diabetes mellitus with complication, with long-term current use of insulin ([facility]) Tobacco user Tobacco use disorder Mixed hyperlipidemia Mixed hyperlipidemia Gout, unspecified cause, unspecified chronicity, unspecified site Vitamin deficiency Unspecified vitamin deficiency Gastro-esophageal reflux disease without esophagitis Edema, unspecified Edema Hyperlipidemia, unspecified Encounter for smoking cessation counseling Venous ulcer of right leg ([facility]) Antibiotic-induced yeast infection Primary hypertension- Primary Unspecified essential hypertension Diabetic polyneuropathy associated with type 2 diabetes mellitus ([facility]) Chronic diastolic heart failure (HCC) Chronic diastolic heart failure Bilateral lower extremity edema Morbid (severe) obesity due to excess calories ([facility]) Type 2 diabetes mellitus with complication, with long-term current use of insulin ([facility]) Anxiety and depression Cigarette nicotine dependence without complication Encounter for screening mammogram for malignant neoplasm of breast Insomnia Insomnia, unspecified Non-seasonal allergic rhinitis, unspecified trigger Type 2 diabetes mellitus with unspecified complications ([facility]) Vitamin D deficiency, unspecified Gastro-esophageal reflux disease without esophagitis PAD (peripheral artery disease) Unspecified peripheral vascular disease Gastroesophageal reflux disease, unspecified whether esophagitis present Venous ulcer of right leg ([facility]) Cellulitis of left lower extremity- Primary COPD exacerbation ([facility]) Obstructive chronic bronchitis with exacerbation Primary hypertension Unspecified essential hypertension Pulmonary hypertension (HCC) Other chronic pulmonary heart diseases Morbid (severe) obesity due to excess calories ([facility]) Type 2 diabetes mellitus with complication, [...] to excess calories ([facility]) Tobacco user Tobacco use disorder [...] History sepsis 2010 Hospitalization History SEE ABOVE [employer] Other Hospital course Narrative No data available for this section [facility] Wilfredo progress note No data available for this section [facility] mChron reason for referral (narrative) , Referral to Dr. 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 Advance Directives and Living Will Power of Washer Blanket Summary Purpose Family History No Family History [...] CREATED AUTHOR AUTHOR'S ORGANIZ ATION 09/15/2020 [facility] DATE CREATED AUTHOR AUTHOR'S ORGANIZ ATION 12/19/2022 [facility]ital DATE CREATED AUTHOR AUTHOR'S ORGANIZ ATION [facility]20[facility] DATE CREATED AUTHOR AUTHOR'S ORGANIZ ATION 01/30/2025 [facility] DATE CREATED AUTHOR AUTHOR'S ORGANIZ ATION 02/06/2025 [facility] DATE CREATED AUTHOR AUTHOR'S ORGANIZ ATION 03/25/2025 [facility] Care Team (unrecognized sect ion and content) Carpet Inspector Relationship Specialty Start Date End Date Ty Amin MD PCP - General Family Medicine 01/05/23 Carpet Inspector Relationship Specialty Start Date End Date Ty Amin MD PCP - General Family Medicine 01/05/23 Carpet Inspector Relationship Specialty Start Date End Date Ty Amin MD [address] [place] [address] PCP - General Family Medicine 09/20/23 Mckayla Blas NP [address] [place] [address] PCP - [facility] 09/07/23 09/05/90 Mckayla Blas NP [address] [place] [address] Nurse Practitioner Family Medicine 09/20/23 Carpet Inspector Relationship Specialty Start Date End Date Ty Amin MD [address] [place] [address] PCP - General Family Medicine 09/20/23 Mckayla Blas NP [address] [place] [address] PCP - [facility] 09/07/23 09/05/90 Mckayla Blas NP [address] [place] [address] Nurse Practitioner Family Medicine 09/20/23 Carpet Inspector Relationship Specialty Start Date End Date Ty Amin MD [address] [place] [address] PCP - General Family Medicine 09/20/23 Mckayla Blas NP [address] [place] [address] PCP [facility] 09/07/23 09/05/90 Mckayla Blas NP [address] [place] [address] Nurse Practitioner Family Medicine 09/20/23 Carpet Inspector Relationship Specialty Start Date End Date Ty Amin MD [address] [place] [address] PCP - General Family Medicine 09/20/23 Mckayla Blas NP [address] [place] [address] PCP - [facility] 09/07/23 09/05/90 Mckayla Blas NP [address] [place] [address] Nurse Practitioner Family Medicine 09/20/23 Carpet Inspector Relationship Specialty Start Date End Date Ty Amin MD [address] [place] [address] PCP - General Family Medicine 09/20/23 Mckayla Blas NP [address] [place] [address] PCP - [facility] 09/07/23 09/05/90 Mckayla Blas NP [address] [place] [address] Nurse Practitioner Family Medicine 09/20/23 Carpet Inspector Relationship Specialty Start Date End Date Ty Amin MD [address] [place] [address] PCP - General Family Medicine 09/20/23 Mckayla Blas NP [address] [place] [address] PCP [facility] 09/07/23 09/05/90 Mckayla Blas NP [address] [place] [address] Nurse Practitioner Family Medicine 09/20/23 Carpet Inspector Relationship Specialty Start Date End Date Ty Amin MD [address] [place] [address] PCP - General Family Medicine 09/20/23 Mckayla Blas NP [address] [place] [address] PCP - [facility] 09/07/23 09/05/90 Mckayla Blas NP [address] [place] [address] Nurse Practitioner Family Medicine 09/20/23 Carpet Inspector Relationship Specialty Start Date End Date Ty Amin MD [address] [place] [address] PCP - General Family Medicine 09/20/23 Mckayla Blas NP [address] [place] [address] PCP [facility] 09/07/23 09/05/90 Mckayla Blas NP [address] [place] [address] Nurse Practitioner Family Medicine 09/20/23 Carpet Inspector Relationship Specialty Start Date End Date Ty Amin MD [address] [place] [address] PCP - General Family Medicine 09/20/23 Mckayla Blas NP [address] [place] [address] PCP - [facility] 09/07/23 09/05/90 Mckayla Blas NP [address] [place] [address] Nurse Practitioner Family Medicine 09/20/23 Carpet Inspector Relationship Specialty Start Date End Date Ty Amin MD [address] [place] [address] PCP - General Family Medicine 09/20/23 Mckayla Blas NP [address] [place] [address] PCP - [facility] 09/07/23 09/05/90 Mckayla Blas NP [address] [place] [address] Nurse Practitioner Family Medicine 09/20/23 Carpet Inspector Relationship Specialty Start Date End Date Ty Amin MD [address] [place] [address] PCP - General Family Medicine 09/20/23 Mckayla Blas NP [address] [place] [address] PCP [facility] 09/07/23 09/05/90 Mckayla Bals NP [address] [place] [address] Nurse Practitioner Family Medicine 09/20/23 Carpet Inspector Relationship Specialty Start Date End Date Ty Amin MD [address] [place] [address] PCP - General Family Medicine 09/20/23 Mckayla Blas NP [address] [place] [address] PCP - [facility] 09/07/23 09/05/90 Mckayla Blas NP [address] [place] [address] Nurse Practitioner Family Medicine 09/20/23 Carpet Inspector Relationship Specialty Start Date End Date Ty Amin MD [address] [place] [address] PCP - General Family Medicine 09/20/23 Mckayla lBas NP [address] [place] [address] PCP [facility] 09/07/23 09/05/90 Mckayla Blas NP [address] [place] [address] Nurse Practitioner Family Medicine 09/20/23 Carpet Inspector Relationship Specialty Start Date End Date Ty Amin MD [address] [place] [address] PCP - General Family Medicine 09/20/23 Mckayla Blas NP [address] [place] [address] PCP - [facility] 09/07/23 09/05/90 Mckayla Blas NP [address] [place] [address] Nurse Practitioner Family Medicine 09/20/23 Carpet Inspector Relationship Specialty Start Date End Date Ty Amin MD [address] [place] [address] PCP - General Family Medicine 09/20/23 Mckayla Blas NP [address] [place] [address] PCP - [facility] 09/07/23 09/05/90 Mckayla Blas NP [address] [place] [address] Nurse Practitioner Family Medicine 09/20/23 Carpet Inspector Relationship Specialty Start Date End Date Ty Amin MD [address] [place] [address] PCP - General Family Medicine 09/20/23 Mckayla Blas NP [address] [place] [address] PCP [facility] 09/07/23 09/05/90 Mckayla Blas NP [address] [place] [address] Nurse Practitioner Family Medicine 09/20/23 Carpet Inspector Relationship Specialty Start Date End Date Ty Amin MD [address] [place] [address] PCP - General Family Medicine 09/20/23 Mckayla Blas NP [address] [place] [address] PCP - [facility] 09/07/23 09/05/90 Mckayla Blas NP [address] [place] [address] Nurse Practitioner Family Medicine 09/20/23 Carpet Inspector Relationship Specialty Start Date End Date Ty Amin MD [address] [place] [address] PCP - General Family Medicine 09/20/23 Mckayla Blas NP [address] [place] [address] PCP [facility] 09/07/23 09/05/90 Mckayla Blas NP [address] [place] [address] Nurse Practitioner Family Medicine 09/20/23 Carpet Inspector Relationship Specialty Start Date End Date Ty Amin MD [address] [place] [address] PCP - General Family Medicine 09/20/23 Mckayla Blas NP [address] [place] [address] PCP - [facility] 09/07/23 09/05/90 Mckayla Blas NP [address] [place] [address] Nurse Practitioner Family Medicine 09/20/23 Carpet Inspector Relationship Specialty Start Date End Date Ty Amin MD [address] [place] [address] PCP - General Family Medicine 09/20/23 Mckayla Blas NP [address] [place] [address] [facility] 09/07/23 09/05/90 Mckayla Blas NP [address] [place] [address] Nurse Practitioner Family Medicine 09/20/23 Carpet Inspector Relationship Specialty Start Date End Date Ty Amin MD [address] [place] [address] PCP - General Family Medicine 09/20/23 Mckayla Blas NP [address] [place] [address] Nurse Practitioner Family Medicine 09/20/23 Carpet Inspector Relationship Specialty Start Date End Date yT Amin MD [address] [place] [address] PCP - General Family Medicine 09/20/23 Mckayla Blas NP [address] [place] [address] Nurse Practitioner Family Medicine 09/20/23 Carpet Inspector Relationship Specialty Start Date End Date Ty Amin MD [address] [place] [address] PCP - General Family Medicine 09/20/23 Mckayla Blas NP [address] [place] [address] Nurse Practitioner Family Medicine 09/20/23 Carpet Inspector Relationship Specialty Start Date End Date Ty Amin MD [address] [place] [address] PCP - General Family Medicine 09/20/23 Mckayla Blas NP [address] [place] [address] Nurse Practitioner Family Medicine 09/20/23 Carpet Inspector Relationship Specialty Start Date End Date Ty Amin MD [address] [place] [address] PCP - General Family Medicine 09/20/23 Mckayla Blas NP [address] [place] [address] Nurse Practitioner Family Medicine 09/20/23 REASON FOR [...] BE BASED ON THE PRIMARY CLINICAL RECORDS. [facility]. provides no warranty or guarantee of the accuracy or completeness of information in this document.
== END 2025-03-26 13:48 | disposition home or self-care (01) ==
LOC: WC 13:47
PROVIDERS: PCP Nurse Practitioner; Visit Provider Physician Assistant
DX: Z01.818 Encounter for other preprocedural examination (principal); I87.311 Chronic venous hypertension (idiopathic) with ulcer of right lower extremity; L97.812 Non-pressure chronic ulcer of other part of right lower leg with fat layer exposed
CPT/HCPCS: 29581; 36415; 80069; 85025; 85652; 86140; 93005

== ENCOUNTER 2025-03-30 08:02 | Outpatient (OUT) | payer MEDICARE, SELFPAY ==
--- OUTSIDE RECORDS SUMMARY | 2025-03-31 08:10 | XMS_ITS | CCD ---
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 Name Role Phone James Benavidez Primary Care Provider JAMES BENAVIDEZ Primary Care Unavailable SHENDGE, VITHAL Admitting Unavailable SHENDGE, VITHAL Attending Unavailable AICHHOLZ, MCKAYLA Primary Care Unavailable AICHHOLZ, MCKAYLA Referring Unavailable AICHHOLZ, MCKAYLA J Primary Care Physician Tico, Stephanie Unavailable OLE RAMIREZ Attending Unavailable OLE RAMIREZ Consulting Unavailable AICHHOLZ, TECHNICAL SALES ENGINEER MCKAYLA Primary Care Unavailable OLE RAMIREZ Admitting Unavailable ANTONY SHRESTHA Consulting Unavailable ALONDRA ., UMBERTO Admitting Unavailable ALONDRA ., UMBERTO Attending Unavailable AICHHOLZ, TECHNICAL SALES ENGINEER MCKAYLA Primary Care Unavailable AFSANEH Loera, DR BOLANOS Consulting Unavailable MARYANNE POWER Consulting Unavailable GLENN KERR Consulting Unavailable YOMAIRA KERR Consulting Unavailable HATTIE GOFF Consulting Unavailable ALONDRA ., UMBERTO Consulting Unavailable TICO, STEPHANIE Attending Unavailable TICO, STEPHANIE Consulting Unavailable AICHHOLZ, TECHNICAL SALES ENGINEER MCKAYLA Primary Care Unavailable TICO, STEPHANIE Admitting Unavailable REGLA ., DR DUMONT Admitting Unavailable AICHHOLZ, TECHNICAL SALES ENGINEER MCKAYLA Primary Care Unavailable REGLA ., DR DUMONT Attending Unavailable ARAUZ ., DR DUMONT Consulting Unavailable COLLIN HUERTAS Consulting Unavailable CECILIA KAUFMAN Admitting Unavailable CECILIA KAUFMAN Attending Unavailable AICHHOLZ, TECHNICAL SALES ENGINEER MCKAYLA Primary Care Unavailable RAFAEL GONGORA Attending Unavailable RAFAEL GONGORA Admitting Unavailable AICHHOLZ, TECHNICAL SALES ENGINEER MCKAYLA Primary Care Unavailable AICHHOLZ, TECHNICAL SALES ENGINEER MCKAYLA Admitting Unavailable AICHHOLZ, TECHNICAL SALES ENGINEER MCKAYLA Primary Care Unavailable AICHHOLZ, TECHNICAL SALES ENGINEER MCKAYLA Attending Unavailable AICHHOLZ, TECHNICAL SALES ENGINEER MCKAYLA Consulting Unavailable LAKSHMIPATHY ., NARENDRANATH Attending Anette vailable LAKSHMIPATHY ., NARENDRANATH Consulting Anette vailable LAKSHMIPATHY ., NARENDRANATH Admitting Anette vailable AICHHOLZ, TECHNICAL SALES ENGINEER MCKAYLA Primary Care Unavailable VALENZUELA ., GIL Consulting Unavailable MORTENSEN ., DR CHAPARRO Aguillon Attending Unavailable MORTENSEN ., DR CHAPARRO Aguillon Admitting Unavailable AICHHOLZ, TECHNICAL SALES ENGINEER MCKAYLA Primary Care Unavailable VALENZUELA ., GIL Consulting Unavailable MORTENSEN ., DR CHAPARRO Aguillon Admitting Unavailable AICHHOLZ, TECHNICAL SALES ENGINEER MCKAYLA Primary Care Unavailable MORTENSEN ., DR CHAPARRO Aguillon Attending Unavailable HALKER ., SUBHASH Consulting Unavailable LAKSHMIPATHY ., NARENDRANATH Admitting Anette vailable LAKSHMIPATHY ., NARENDRANATH Attending Anette vailable AICHHOLZ, TECHNICAL SALES ENGINEER MCKAYLA Primary Care Unavailable MORTENSEN ., DR CHAPARRO Aguillon Attending Unavailable MORTENSEN ., DR CHAPARRO Aguillon Admitting Unavailable VALENZUELA ., GIL Consulting Unavailable AICHHOLZ, TECHNICAL SALES ENGINEER MCKAYLA Primary Care Unavailable VALENZUELA ., GIL Consulting Unavailable MORTENSEN ., DR CHAPARRO Aguillon Attending Unavailable MORTENSEN ., DR CHAPARRO Aguillon Admitting Unavailable AICHHOLZ, TECHNICAL SALES ENGINEER MCKAYLA Primary Care Unavailable HATTIE BRODERICK Attending Unavailable HATTIE BRODERICK Admitting Unavailable AICHHOLZ, TECHNICAL SALES ENGINEER MCKAYLA Primary Care Unavailable AICHHOLZ, TECHNICAL SALES ENGINEER MCKAYLA Admitting Unavailable AICHHOLZ, TECHNICAL SALES ENGINEER MCKAYLA Consulting Unavailable AICHHOLZ, TECHNICAL SALES ENGINEER MCKAYLA Primary Care Unavailable AICHHOLZ, TECHNICAL SALES ENGINEER MCKAYLA Attending Unavailable AICHHOLZ, TECHNICAL SALES ENGINEER MCKAYLA Primary Care Unavailable MISC, DR LESLIE Admitting Unavailable MISC, DR LESLIE Attending Unavailable MISC, DR LESLIE Consulting Unavailable DIAB ., MARIANO Admitting Unavailable DIAB ., MARIANO Attending Unavailable DIAB ., MARIANO Consulting Unavailable AICHHOLZ, TECHNICAL SALES ENGINEER MCKAYLA Primary Care Unavailable RASTEGAR, RICCO Consulting Unavailable AICHHOLZ, TECHNICAL SALES ENGINEER MCKAYLA Admitting Unavailable AICHHOLZ, TECHNICAL SALES ENGINEER MCKAYLA Primary Care Unavailable AICHHOLZ, TECHNICAL SALES ENGINEER MCKAYLA Attending Unavailable AICHHOLZ, TECHNICAL SALES ENGINEER MCKAYLA Consulting Unavailable DR PATRICIA VELOZ Consulting Unavailable TAMLYN ., CECILIA Attending Unavailable TAMLYN ., CECILIA Admitting Unavailable DR PATRICIA VELOZ Consulting Unavailable AICHHOLZ, TECHNICAL SALES ENGINEER MCKAYLA Primary Care Unavailable TAMLYN ., CECILIA Consulting Unavailable MORTENSEN ., DR CHAPARRO Aguillon Attending Unavailable FESTUS ., DR CHAPARRO Aguillon Consulting Unavailable FESTUS ., DR CHAPARRO Aguillon Admitting Unavailable AICHHOLZ, TECHNICAL SALES ENGINEER MCKAYLA Primary Care Unavailable HATTIE BRODERICK Attending Unavailable HATTIE BRODERICK Consulting Unavailable HATTIE BRODERICK Admitting Unavailable AICHHOLZ, TECHNICAL SALES ENGINEER MCKAYLA Primary Care Unavailable HATTIE BAUTISTA Unavailable AICHHOLZ, TECHNICAL SALES ENGINEER MCKAYLA Admitting Unavailable AICHHOLZ, TECHNICAL SALES ENGINEER MCKAYLA Attending Unavailable AICHHOLZ, TECHNICAL SALES ENGINEER MCKAYLA Consulting Unavailable AICHHOLZ, TECHNICAL SALES ENGINEER MCKAYLA Primary Care Unavailable Brennan PHIPPS, Ty Primary Care Provider Brennan PHIPPS, Ty Primary Care Provider Aichholz SUGAR MIXER, Mckayla Unavailable Aichholz SUGAR MIXER, Mckayla Unavailable Elbert ARAUZ Attending Unavailable SARAH VEGA Attending Unavailable AICHHOLZ, MCKAYLA Attending Unavailable RAIN SOUZA F Attending Unavailable AICHHOLZ, MCKAYLA Attending Unavailable AICHHOLZ, MCKAYLA Attending Unavailable AICHHOLZ, MCKAYLA Attending Unavailable LIBBYRAIN GIANG F Attending Unavailable AICHHOLZ, MCKAYLA Attending Unavailable LIBBYRAIN GIANG F Attending Unavailable LIBBY, AHMAD F Referring Unavailable AICHHOLZ, MCKAYLA Attending Unavailable DAKOTAH BRIDGES Attending Unavailable AMI ORO Attending Unavailable Aichholz SUGAR MIXER, Mckayla Unavailable Adonay CHAU, Flynn Arzate Attending Unavailab le Bob OPTOMETRIST-TECHNICAL SALES ENGINEER, Omero Lovell Attending Unav ailable Adonay CHAU, Flynn Arzate Referring Unavailab lolita Kellogg MD, Corinne Ghosh Attending Unavail able Bob OPTOMETRIST-TECHNICAL SALES ENGINEER, Omero Lovell Attending Unav ailable Adonay CHAU, Flynn Arzate Attending Unavailab le Bob OPTOMETRIST-TECHNICAL SALES ENGINEER, Omero Lovell Attending Unav ailable Allergies Allergy Classification Reported Allergen(s) Allergy Type Date of Onset Reaction(s) Facility (1 source) No Known Medication Allergies; Translations: [No Known Medication Allergies] Propensity to adverse reactions (disorder) [facility] Repository Medications Current Medications Medication Drug [...] Start Date: 02/06/22 Status: Ordered HYDROcodone-acet aminophen ([place]) 5-325 MG tablet 1 tablet 3 (three) times a day as needed for severe pain. Active take 1 tablet by vandana twice daily as needed [place] 5-325 MG 1 tablet as needed Orally [...] every week ergocalciferol (Vitamin D2) 1.25 MG (61456 UT) capsule Indications: Vitamin D deficiency, unspecified Take 1 capsule (1.25 mg) by mouth 1 (one) time per week 12 capsule 1 01/16/2025 04/10/2025 Active Start: 10-27-2024 End: 01-19-2025 take 1 capsule by mouth two times weekly ergocalciferol (Vitamin D2) 1.25 MG (04987 UT) capsule Indications: Vitamin D deficiency, unspecified Take 1 capsule (1.25 mg) by mouth 2 (two) times a week 24 capsule 1 10/27/2024 01/19/2025 Active Start: 04-06-2024 End: 10-27-2024 take 1 capsule by mouth every week ergocalciferol (Vitamin D2) 1.25 MG (44623 UT) capsule Indications: Vitamin D deficiency, unspecified [...] Chronic Other aftercare (1 source) Other intermediate (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 therapy; Translations: [OTH LONG-TERM CURRENT DRUG THERAPY] Onset: 12-05-2022 Episodic Other aftercare (1 source) medical terminologist (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; Translations: [LONG-TERM CURRENT USE OF ASPIRIN] Onset: 12-05-2022 Episodic Other aftercare (6 sources) Long-term current use of insulin; Translations: [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] 05-27-2024 Episodic Other [...] ocumentation in Social History. Unclassified (1 source) LONG-TERM INJECT NONINSULN ANTIDIAB; Translations: [SLEEVE SEPARATOR INJECT NONINSULN ANTIDIAB] Onset: 12-05-2022 Unclassified (3 [...] sources) long-term (current) use of insulin; Translations: [LONG-TERM CURRENT USE OF INSULIN] Onset: 12-05-2022 Episodic Other aftercare (20 sources) Long-term current use of inhaled steroid; Translations: [long-term (current) use of inhaled steroids] Onset: 08-27-2024 [...] She has had testing done at the [facility] last year which she brought with her, [...] Bob REBOLLEDOOmero Nas 03/23/25 12:01 EDT Normal [facility] Podiatry Office/Clinic Noteo n 03-11-2025 Podiatry Office/Clinic [...] wraps (gauze, tila bandage, Coban II, tuba 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 The patient resides in [place]. Review of Systems Constitutional: Negative for signs [...] extremities Positi (more content not included)... Normal [facility] Comment on above: Order Comment: Destiny ocampo Attachment [id number] Can be viewed in source system XR [...] Electronically Signed in Other Vendor System) Normal [facility] Orders Onlyon 01-30-2025 Orders Only [id number] Mitzi Macias 1970 F Date Provider Department Center 01/30/2025 [id number], HISTORICAL [facility] Family History Problem Relation Age of Onset Heart attack Paternal Grandmother Family Status - Relation Status Age at Mother Father Paternal Grandmother Normal [facility] CA ECHO DOPPLER COMPLETEon 0 01-29-2025 [place] [id number] Cardiology Report Signed Patient: MITZI MACIAS MR#: [id number] : 1970 Acct:[id number] Age/Sex: 54 / F ADM Date: 01/29/25 Loc: CARD Attending Dr: AMI ORO APRN Ordering Physician: AMI ORO APRN Date of Service: 01/29/25 Procedure(s): CA echo doppler complete Accession Number(s): [id number] cc: Mckayla Blas SUGAR MIXER; AMI ORO APRN Patient Name: MITZI MACIAS MR#: [id number] : 1970 Exam Date: 01/29/2025 Ordering Doctor: AMI ORO [facility] ECHOCARDIOGRAM REPORT PROCEDURE: CA ECHO DOPPLER [...] HERRERA Signed By: 01/29/251839 DD/ 39 TD/TT: Government Contracts Manager: [facility] Radiology, Radiologist, MD - 01/29/2025 [place] [address] Cardiology Report Signed Patient: MITZI MACIAS MR#: [id number] : 1970 Acct:[id number] Age/Sex: 54 / F ADM Date: 01/29/25 Loc: CARD Attending Dr: AMI ORO APRN Ordering Physician: AMI ORO APRN Date of Service: 01/29/25 Procedure(s): CA echo doppler complete Accession Number(s): [id number] cc: Mckayla Blas SUGAR MIXER; AMI ORO APRN Patient Name: MITZI MACIAS MR#: [id number] : 1970 Exam Date: 01/29/2025 Ordering Doctor: [...] HERRERA Signed By: 01/29/251839 DD/ 39 TD/TT: Government Contracts Manager: [facility] Radiology Study observation (narrative) [facility] CA ECHO DOPPLER COMPLETEOrde red By: Radiologist Radiology on 01-29-2025 [facility] Work Phone: Glucose (Bld) [Mass/Vol]on 0 01-29-2025 Glucose Blood, POC 121 mg/dL [facility] Laboratory - Hematology and Cell countson 01-29-2025 HbA1c (Bld) [Mass fraction] 8.4 % [facility] No Panel Informationon 01-29 Interpretation and review of laboratory results Abnormal [facility] Office Visiton 01-06-2025 Follow-up visit [id number] Mitzi Macias 1970 F Date Provider Department Center 01/06/2025 Mikaela-AMI ORO CARD [place] [facility] Family History Problem Relation Age of Onset Heart attack Paternal Grandmother Family Status - Relation Status Age at Mother Father Paternal Grandmother Level of Service:71583 [place] OFFICE/OUTPATIENT ESTABLISHED MOD [facility] 30 MIN Reason for Visit and Comments: Congestive Heart Failure [127] Hypertension [527085] Hyperlipidemia [182] Normal [facility] 36on 10-21-2024 36 Regarding lab results from 10/08/2024: MD Mickie Merritt MA Lipids, ALT AST, and BMP are normal. HbA1c was not performed. Continue current management. LM on patient's VM. Normal [facility] Glucose (Bld) [Mass/Vol]Orde red By: Mica Sauceda on 10-08-2024 Glucose Blood, POC 97 mg/dL [facility] Laboratory - Hematology and Cell countson 10-08-2024 HbA1c (Bld) [Mass fraction] 7.4 % [facility] No Panel InformationOrdered By: Mica Sauceda on 10-08-2024 [facility] TBH UA (CLEAN/CATCH) MICROSC OPIC IF INDICATEon 10-08-2024 BILIRUBIN URINE Negative NEGATIVE [facility] BLOOD URINE Negative NEGATIVE [facility] Clarity (U) CLEAR CLEAR [facility] Color (U) YELLOW YELLOW [facility] GLUCOSE URINE UA Negative NEGATIVE mg/dL [facility] Interpretation and review of laboratory results Abnormal [facility] Ketones Ql (U) Negative NEGATIVE mg/dL [facility] Leukocyte esterase Test strip Ql (U) Negative NEGATIVE [facility] NITRITE URINE Negative NEGATIVE [facility] pH (U) 5.5 [pH] 5.0 - 9.0 [facility] Protein (U) [Mass/Vol] 30 mg/dL Abnormal NEG/TRACE NO [facility] SPECIFIC GRAVITY URINE >=1.030 Abnormal 1.005 - 1.025 [facility] URINE MICROSCOPIC INDICATED YES [facility] UROBILINOGEN URINE 1.0 EU/dL 0.2 - 1.0 EU/dL [facility] ALL CBC WITH AUTO DIFFon BASOPHILS ABSOLUTE AUTO 0.1 [facility] Basophils/100 WBC (Bld) 0.5 % 0.2 - 2.0 % [facility] Eosinophils/100 WBC (Bld) 1.9 % 0.9 - 7.0 % [facility] Erythrocyte distribution width (RBC) [Ratio] 14.6 % 11.0 - 15.0 % [facility] Hematocrit (Bld) [Volume fraction] 50.9 % High 36.0 - 48.0 % [facility] Hemoglobin (Bld) [Mass/Vol] 16.1 g/dL High 12.0 - 16.0 g/dL [facility] IMMATURE GRANULOCYTES ABS AUTO 0.04 High [facility] Immature granulocytes/100 WBC (Bld) 0.3 % 0.0 - 0.5 % [facility] Interpretation and review of laboratory results Abnormal [facility] LYMPHOCYTES ABSOLUTE AUTO 3.2 [facility] Lymphocytes/100 WBC (Bld) 25.1 % 20.5 - 60.0 % [facility] MCH (RBC) [Entitic mass] 29.2 pg 26.7 - 34.0 pg [facility] MCHC (RBC) [Mass/Vol] 31.6 g/dL 29.9 - 35.2 g/dL [facility] MCV (RBC) [Entitic vol] 92.2 fL 81.0 - 99.0 fL [facility] MONOCYTES ABSOLUTE AUTO 0.7 [facility] Monocytes/100 WBC (Bld) 5.2 % 1.7 - 12.0 % [facility] NEUTROPHILS ABSOLUTE AUTO 8.6 High [facility] Neutrophils/100 WBC (Bld) 67 % 43.0 - 75.0 % [facility] Platelet mean volume (Bld) [Entitic vol] 12.8 fL 9.5 - 13.5 fL [facility] TBH EO # 0.2 [facility] TB PLT 122 Low [facility] RBC 5.52 High [facility] WBC 12.8 High [facility] Office Visiton 08-08-2024 Follow-up visit [id number] Mitzi Macias Gilberto 1970 F Date Provider Department Center 08/08/2024 [id number] BRIDGES CARD [facility] Family History Problem Relation Age of Onset Heart attack Paternal Grandmother Family Status - Relation Status Age at Paternal Grandmother Level of Service:61829 [facility] OFFICE/OUTPATIENT ESTABLISHED MOD MDM 30 MIN Reason for Visit and Comments: Congestive Heart Failure [127] - Denies chest pain, SOB, and palpitations. Hypertension [937155] Hyperlipidemia [182] LVH [Other] Edema [[id number]] - Denies worsening edema. She sees wound care for RLE ulcer. She was seeing the vein specialists here in town but they are moving to [place] in a few weeks. Normal [facility] Glucose (Bld) [Mass/Vol]Orde red By: Mica Sauceda on 05-27-2024 Glucose Blood, POC 158 mg/dL [facility] Laboratory - Hematology and Cell countson 05-27-2024 HbA1c (Bld) [Mass fraction] 9.2 % [facility] No Panel InformationOrdered By: Mica Sauceda on 05-27-2024 [facility] CREATININEon 05-12-2024 Creatinine [Mass/Vol] 0.92 mg/dL 0.55 - 1.02 mg/dL [facility] GFR/1.73 sq M.predicted CKD-EPI (S/P/Bld) [Vol rate/Area] >60 >=60 mL/min/1.73m 2 [facility] EGFR-NON AF FIJIAN >60 >=60 mL/min/1.73m 2 [facility] CBC AUTO DIFFon 12-06-2022 BASO # 0.0 103/ul Normal 0.0-0.1 [facility] Comment on above: Performed By: #### C BC #### [facility] [address] [address] [address] Ashlie Hills Basophils/100 WBC (Bld) 0.1 % Critically low 0.2-2.0 [facility] Comment on above: Performed By: #### C BC #### [facility] [address] [address] [address] Ashlie Hills EO # 0.0 103/ul Normal 0.0-0.7 [facility] Comment on above: Performed By: #### C BC #### [facility] [address] [address] [address] Ashlie Hills Eosinophils/100 WBC (Bld) 0.0 % Critically low 0.9-7.0 [facility] Comment on above: Performed By: #### C BC #### [facility] [address] [address] [address] Ashlie Hills Erythrocyte distribution width (RBC) [Ratio] 14.9 % Normal 11.0-15.0 [facility] Comment on above: Performed By: #### C BC #### [facility] [address] [address] [address] Ashlie Hills Hematocrit (Bld) [Volume fraction] 46.2 % Normal 36.0-48.0 [facility] Comment on above: Performed By: #### C BC #### [facility] [address] [address] [address] Ashlie Hills Hemoglobin (Bld) [Mass/Vol] 14.7 g/dL Normal 12.0-16.0 [facility] Comment on above: Performed By: #### C BC #### [facility] [address] [address] [address] Ashlie Hills IG # 0.06 10e3/ul Critically high 0.00-0.03 [facility] Comment on above: Performed By: #### C BC #### [facility] [address] [place] [address] Dr. Ashlie Hills IG % 0.4 % Normal 0.0-0.5 [facility] Comment on above: Performed By: #### C BC #### [facility] [address] [place] [address] Dr. Ashlie Hills LYMPH # 1.3 103/ul Normal 1.2-3.8 [facility] Comment on above: Performed By: #### C BC #### [facility] [address] [place] [address] Dr. Ashlie Hills Lymphocytes/100 WBC (Bld) 9.4 % Critically low 20.5-60.0 [facility] Comment on above: Performed By: #### C BC #### [facility] [address] [place] [address] Dr. Ashlie Hills MANUAL DIFF REQ NO Normal [facility] Comment on above: Performed By: #### C BC #### [facility] [address] [place] [address] Dr. Ashlie Hills MCH (RBC) [Entitic mass] 28.4 pg Normal 26.7-34.0 [facility] Comment on above: Performed By: #### C BC #### [facility] [address] [place] [address] Dr. Ashlie Hills MCHC (RBC) [Mass/Vol] 31.8 g/dL Normal 29.9-35.2 [facility] Comment on above: Performed By: #### C BC #### [facility] [address] [place] [address] Dr. Ashlie Hills MCV (RBC) [Entitic vol] 89.4 fL Normal 81.0-99.0 [facility] Comment on above: Performed By: #### C BC #### [facility] [address] [place] [address] Dr. Ashlie Hills MONO # 0.5 103/ul Normal 0.3-0.8 [facility] Comment on above: Performed By: #### C BC #### [facility] [address] [place] [address] Dr. Ashlie Hills Monocytes/100 WBC (Bld) 3.4 % Normal 1.7-12.0 [facility] Comment on above: Performed By: #### C BC #### [facility] [address] [place] [address] Dr. Ashlie Hills NEUT # 11.8 103/ul Critically high 1.4-6.[address] [facility] Comment on above: Performed By: #### C BC #### [facility] [address] [place] [address] Dr. Ashlie Hills Neutrophils/100 WBC (Bld) 86.7 % Critically high 43.0-75.0 [facility] Comment on above: Performed By: #### C BC #### [facility] [address] [place] [address] Dr. Ashlie Hills Platelet mean volume (Bld) [Entitic vol] 12.6 fL Normal 9.5-13.5 [facility] Comment on above: Performed By: #### C BC #### [facility] [address] [place] [address] Dr. Ashlie Hills PLT 133 103/ul Critically low 150-450 [facility] Comment on above: Performed By: #### C BC #### [facility] [address] [place] [address] Dr. Ashlie Hills RBC 5.17 106/ul Normal 4.20-5.40 [facility] Comment on above: Performed By: #### C BC #### [facility] [address] [place] [address] Dr. Ashlie Hills WBC 13.6 103/ul Critically high 4.0-11.[address] [facility] Comment on above: Performed By: #### C BC #### [facility] [address] [place] [address] Dr. Ashlie Hills MAGNESIUMon 12-06-2022 Magnesium [Mass/Vol] 2.2 mg/dL Normal 1.8-2.4 [facility] Comment on above: Performed By: #### I NFLUAB #### [facility] [address] [address] [address] Ashlie Hills POINT OF CARE GLUCOSEon 11-08 Glucose [Mass/Vol] 340 mg/dL Critically high -106 [facility] Comment on above: Performed By: #### P OCGLUC #### [facility] [address] [place] [address] Dr. Ashlie Hills Glucose [Mass/Vol] 276 mg/dL Critically high -106 [facility] Comment on above: Performed By: #### C BC #### [facility] [address] [address] [address] Ashlie Hills Glucose [Mass/Vol] 333 mg/dL Critically high [address] [place] [address] Comment on above: Performed By: #### C BC #### [facility] [address] [place] [address] Dr. Ashlie Hills PROF CHEM 8 (BAS METB)on Anion gap [Moles/Vol] 10.9 mmol/L Normal [facility] Comment on above: Performed By: #### I NFLUAB #### [facility] [address] [address] [address] Ashlie Hills Calcium [Mass/Vol] 9.3 mg/dL Normal 8.5-10.1 [facility] Comment on above: Performed By: #### I NFLUAB #### [facility] [address] [place] [address] Dr. Ashlie Hills Chloride [Moles/Vol] 103 mmol/L Normal 98-107 [facility] Comment on above: Performed By: #### I NFLUAB #### [facility] [address] [place] [address] Dr. Ashlie Hills CO2 [Moles/Vol] 31.2 mmol/L Normal 21.0-32.0 [facility] Comment on above: Performed By: #### I NFLUAB #### [facility] [address] [place] [address] Dr. Ashlie Hills Creatinine [Mass/Vol] 0.96 mg/dL Normal 0.55-1.02 [facility] Comment on above: Performed By: #### I NFLUAB #### [facility] [address] [address] [address] Ashlie Hills EGFR-AF FIJIAN >60 Normal >=60 [facility] Comment on above: Performed By: #### I NFLUAB #### [facility] [address] [address] [address] Ashlie Hills EGFR-NON AF FIJIAN >60 Normal >=60 [facility] Comment on above: Performed By: #### I NFLUAB #### [facility] [address] [address] [address] Ashlie Hills Glucose [Mass/Vol] 288 mg/dL Critically high 74-106 [facility] Comment on above: Performed By: #### I NFLUAB #### [facility] [address] [place] [address] Dr. Ashlie Hills Potassium [Moles/Vol] 5.1 mmol/L Normal 3.5-5.1 [facility] Comment on above: Performed By: #### I NFLUAB #### [facility] [address] [address] [address] Ashlie Hills Sodium [Moles/Vol] 140 mmol/L Normal 136-145 [facility] Comment on above: Performed By: #### I NFLUAB #### [facility] [address] [address] [address] Ashlie Hills Urea nitrogen [Mass/Vol] 30.0 mg/dL Critically high 7.0-18.0 [facility] Comment on above: Performed By: #### I NFLUAB #### [facility] [address] [address] [address] Ashlie Hills Urea nitrogen/Creatinine [Mass ratio] 31.2 mg/mg Normal [facility] Comment on above: Performed By: #### I NFLUAB #### [facility] [address] [place] [address] Dr. Ashlie Hills CBC AUTO DIFFon 12-05-2022 BASO # 0.0 103/ul Normal 0.0-0.1 [facility] Comment on above: Performed By: #### C BC #### [facility] [address] [address] [address] Ashlie Hills Basophils/100 WBC (Bld) 0.4 % Normal 0.2-2.0 [facility] Comment on above: Performed By: #### C BC #### [facility] [address] [place] [address] Dr. Ashlie Hills EO # 0.0 103/ul Normal 0.0-0.7 [facility] Comment on above: Performed By: #### C BC #### [facility] [address] [place] [address] Dr. Ashlie Hills Eosinophils/100 WBC (Bld) 0.0 % Critically low 0.9-7.0 [facility] Comment on above: Performed By: #### C BC #### [facility] [address] [place] [address] Dr. Ashlie Hills Erythrocyte distribution width (RBC) [Ratio] 14.8 % Normal 11.0-15.0 [facility] Comment on above: Performed By: #### C BC #### [facility] [address] [place] [address] Dr. Ashlie Hills Hematocrit (Bld) [Volume fraction] 49.9 % Critically high 36.0-48.0 [facility] Comment on above: Performed By: #### C BC #### [facility] [address] [place] [address] Dr. Ashlie Hills Hemoglobin (Bld) [Mass/Vol] 15.7 g/dL Normal 12.0-16.0 [facility] Comment on above: Performed By: #### C BC #### [facility] [address] [place] [address] Dr. Ashlie Hills IG # 0.04 10e3/ul Critically high 0.00-0.03 [facility] Comment on above: Performed By: #### C BC #### [facility] [address] [place] [address] Dr. Ashlie Hills IG % 0.5 % Normal 0.0-0.5 [facility] Comment on above: Performed By: #### C BC #### [facility] [address] [address] [address] Ashlie Hills LYMPH # 1.1 103/ul Critically low 1.2-3.8 [facility] Comment on above: Performed By: #### C BC #### [facility] [address] [address] [address] Ashlie Hills Lymphocytes/100 WBC (Bld) 12.7 % Critically low 20.5-60.0 [facility] Comment on above: Performed By: #### C BC #### [facility] [address] [place] [address] Dr. Ahslie Hills MANUAL DIFF REQ NO Normal [facility] Comment on above: Performed By: #### C BC #### [facility] [address] [place] [address] Dr. Ashlie Hills MCH (RBC) [Entitic mass] 28.1 pg Normal 26.7-34.0 [facility] Comment on above: Performed By: #### C BC #### [facility] [address] [place] [address] Dr. Ashlie Hills MCHC (RBC) [Mass/Vol] 31.5 g/dL Normal 29.9-35.2 [facility] Comment on above: Performed By: #### C BC #### [facility] [address] [place] [address] Dr. Ashlie Hills MCV (RBC) [Entitic vol] 89.3 fL Normal 81.0-99.0 [facility] Comment on above: Performed By: #### C BC #### [facility] [address] [address] [address] Ashlie Hills MONO # 0.1 103/ul Critically low 0.3-0.8 [facility] Comment on above: Performed By: #### C BC #### [facility] [address] [place] [address] Dr. Ashlie Hills Monocytes/100 WBC (Bld) 1.3 % Critically low 1.7-12.0 [facility] Comment on above: Performed By: #### C BC #### [facility] [address] [address] [address] Ashlie Hills NEUT # 7.2 103/ul Critically high 1.4-6.5 [facility] Comment on above: Performed By: #### C BC #### [facility] [address] [address] [address] Ashlie Hills Neutrophils/100 WBC (Bld) 85.1 % Critically high 43.0-75.0 [facility] Comment on above: Performed By: #### C BC #### [facility] [address] [address] [address] Ashlie Hills Platelet mean volume (Bld) [Entitic vol] 12.2 fL Normal 9.5-13.5 [facility] Comment on above: Performed By: #### C BC #### [facility] [address] [address] [address] Ashlie Hills PLT 116 103/ul Critically low 150-450 [facility] Comment on above: Performed By: #### C BC #### [facility] [address] [address] [address] Ashlie Hills RBC 5.59 106/ul Critically high 4.20-5.40 [facility] Comment on above: Performed By: #### C BC #### [facility] [address] [address] [address] Ashlie Hills WBC 8.5 103/ul Normal 4.0-11.0 [facility] Comment on above: Performed By: #### C BC #### [facility] [address] [place] [address] Dr. Ashlie Hills CTA CHEST WO W [...] HATTIE GOFF Date: 2022-12-05 01:52 Normal [facility] MAGNESIUMon 12-05-2022 Magnesium [Mass/Vol] 2.1 mg/dL Normal 1.8-2.4 [facility] Comment on above: Performed By: #### P OCGLUC #### [facility] [address] [address] [address] Ashlie Hills POINT OF CARE GLUCOSEon 11-08 Glucose [Mass/Vol] 293 mg/dL Critically high -106 [facility] Comment on above: Performed By: #### P OCGLUC #### [facility] [address] [address] [address] Ashlie Hills Glucose [Mass/Vol] 269 mg/dL Critically high -106 [facility] Comment on above: Performed By: #### P OCGLUC #### [facility] [address] [address] [address] Ashlie Hills Glucose [Mass/Vol] 223 mg/dL Critically high -106 [facility] Comment on above: Performed By: #### C VDAGS #### [facility] [address] [address] [address] Ashlie Hills PROF CHEM 8 (BAS METB)on Anion gap [Moles/Vol] 11.6 mmol/L Normal [facility] Comment on above: Performed By: #### P OCGLUC #### [facility] [address] [address] [address] Ashlie Hills Calcium [Mass/Vol] 9.2 mg/dL Normal 8.5-10.1 [facility] Comment on above: Performed By: #### P OCGLUC #### [facility] [address] [address] [address] Ashlie Hills Chloride [Moles/Vol] 102 mmol/L Normal 98-107 [facility] Comment on above: Performed By: #### P OCGLUC #### [facility] [address] [address] [address] Ashlie Hills CO2 [Moles/Vol] 28.7 mmol/L Normal 21.0-32.0 [facility] Comment on above: Performed By: #### P OCGLUC #### [facility] [address] [address] [address] Ashlie Hills Creatinine [Mass/Vol] 1.04 mg/dL Critically high 0.55-1.02 [facility] Comment on above: Performed By: #### P OCGLUC #### [facility] [address] [address] [address] Ashlie Hills EGFR-AF FIJIAN >60 Normal >=60 [facility] Comment on above: Performed By: #### P OCGLUC #### [facility] [address] [address] [address] sAhlie Hills EGFR-NON AF FIJIAN 56 mL/min/1.73m2 Critically low >=60 [facility] Comment on above: Performed By: #### P OCGLUC #### [facility] [address] [address] [address] Ashlie Hills Glucose [Mass/Vol] 231 mg/dL Critically high 74-106 [facility] Comment on above: Performed By: #### P OCGLUC #### [facility] [address] [address] [address] Ashlie Hills Potassium [Moles/Vol] 4.3 mmol/L Normal 3.5-5.1 [facility] Comment on above: Performed By: #### P OCGLUC #### [facility] [address] [address] [address] Ashlie Hills Sodium [Moles/Vol] 138 mmol/L Normal 136-145 [facility] Comment on above: Performed By: #### P OCGLUC #### [facility] [address] [address] [address] Ashlie Hills Urea nitrogen [Mass/Vol] 17.0 mg/dL Normal 7.0-18.0 [facility] Comment on above: Performed By: #### P OCGLUC #### [facility] [address] [place] [address] Dr. Ashlie Hills Urea nitrogen/Creatinine [Mass ratio] 16.3 mg/mg Normal [facility] Comment on above: Performed By: #### P OCGLUC #### [facility] [address] [address] [address] Ashlie Hills RESPIRATORY PANEL PLUSon Adenovirus Not detected Normal NOT DETECTED [facility] Comment on above: Performed By: #### C VDAGS #### [facility] [address] [place] [address] Dr. Ashlie Shaffer. Parapertusis Not detected Normal NOT DETECTED [facility] Comment on above: Performed By: #### C VDAGS #### [facility] [address] [address] [address] Ashlie Shaffer. Pertussis Not detected Normal NOT DETECTED [facility] Comment on above: Performed By: #### C VDAGS #### [facility] [address] [address] [address] Ashlie Hills Chlamydia Pneumoniae Not detected Normal NOT DETECTED [facility] Comment on above: Performed By: #### C VDAGS #### [facility] [address] [place] [address] Dr. Ashlie Hills Coronavirus 229E Not detected Normal NOT DETECTED [facility] Comment on above: Performed By: #### C VDAGS #### [facility] [address] [address] [address] Ashlie Hills Coronavirus HKU1 Not detected Normal NOT DETECTED [facility] Comment on above: Performed By: #### C VDAGS #### [facility] [address] [place] [address] Dr. Ashlie Hills Coronavirus NL63 Not detected Normal NOT DETECTED [facility] Comment on above: Performed By: #### C VDAGS #### [facility] [address] [place] [address] Dr. Ashlie Hills Coronavirus OC43 Not detected Normal NOT DETECTED [facility] Comment on above: Performed By: #### C VDAGS #### [facility] [address] [place] [address] Dr. Ashlie Hills Influenza A H1 Not detected Normal NOT DETECTED [facility] Comment on above: Performed By: #### C VDAGS #### [facility] [address] [place] [address] Dr. Ashlie Hills Influenza A H1 2009 Not detected Normal NOT DETECTED [facility] Comment on above: Performed By: #### C VDAGS #### [facility] [address] [place] [address] Dr. Aslhie Hills Influenza A H3 Not detected Normal NOT DETECTED [facility] Comment on above: Performed By: #### C VDAGS #### [facility] [address] [place] [address] Dr. Ashlie Hills Influenza B Not detected Normal NOT DETECTED [facility] Comment on above: Performed By: #### C VDAGS #### [facility] [address] [place] [address] Dr. Ashlie Hills Metapneumovirus Not detected Normal NOT DETECTED [facility] Comment on above: Performed By: #### C VDAGS #### [facility] [address] [place] [address] Dr. Ashlie Hills Mycoplas. Pneumoniae Not detected Normal NOT DETECTED [facility] Comment on above: Performed By: #### C VDAGS #### [facility] [address] [place] [address] Dr. Ashlie Hills Parainfluenza 1 Not detected Normal NOT DETECTED [facility] Comment on above: Performed By: #### C VDAGS #### [facility] [address] [place] [address] Dr. Ashlie Hills Parainfluenza 2 Not detected Normal NOT DETECTED [facility] Comment on above: Performed By: #### C VDAGS #### [facility] [address] [place] [address] Dr. Ashlie Hills Parainfluenza 3 Detected Abnormal NOT DETECTED [facility] Comment on above: Performed By: #### C VDAGS #### [facility] [address] [place] [address] Dr. Ashlie Hills Parainfluenza 4 Not detected Normal NOT DETECTED [facility] Comment on above: Performed By: #### C VDAGS #### [facility] [address] [place] [address] Dr. Ashlie Hills Rhino/Enterovirus Not detected Normal NOT DETECTED [facility] Comment on above: Performed By: #### C VDAGS #### [facility] [address] [place] [address] Dr. Ashlie Hills RP2 Header 1 RESPIRATORY PANEL: VIRUSES Normal [facility] Comment on above: Performed By: #### C VDAGS #### [facility] [address] [place] [address] Dr. Ashlie Hills RP2 Header 2 RESPIRATORY PANEL: BACTERIA Normal [facility] Comment on above: Performed By: #### C VDAGS #### [facility] [address] [place] [address] Dr. Ashlie Hills RSV Not detected Normal NOT DETECTED [facility] Comment on above: Performed By: #### C VDAGS #### [facility] [address] [place] [address] Dr. Ashlie Hills SARS-CoV-2 (COVID-19) RNA MADDY+probe Ql (Unsp spec) Not detected Normal NOT DETECTED [facility] Comment on above: Performed By: #### C VDAGS #### [facility] [address] [place] [address] Dr. Ashlie Hills XR CHEST 1 Von [...] MARYANNE POWER Date: 2022-12-04 22:23 Normal [facility] BLOOD GASES BTYon 12-04-2022 02 MODE ROOM AIR Normal [facility] Comment on above: Performed By: #### C BC #### [facility] [address] [place] [address] Dr. Ashlie Hills ALLENS TEST Positive Normal [facility] Comment on above: Performed By: #### C BC #### [facility] [address] [place] [address] Dr. Ashlie Hills Base excess Calc (Bld) [Moles/Vol] 5.4 mmol/L Critically high -2.0-2.0 [facility] Comment on above: Performed By: #### C BC #### [facility] [address] [place] [address] Dr. Ashlie Hills BIPAP PRESSURE Normal [facility] Comment on above: Performed By: #### C BC #### [facility] [address] [place] [address] Dr. Ashlie Hills CPAP [facility] Comment on above: Performed By: #### C BC #### [facility] [address] [place] [address] Dr. Ashlie Hills FIO2 Normal [facility] Comment on above: Performed By: #### C BC #### [facility] [address] [place] [address] Dr. Ashlie Hills HCO3 (Bld) [Moles/Vol] 30.8 mmol/L Critically high 22.0-26 .0 [facility] Comment on above: Performed By: #### C BC #### [facility] [address] [place] [address] Dr. Ashlie Hills LPM Normal [facility] Comment on above: Performed By: #### C BC #### [facility] [address] [place] [address] Dr. Ashlie Hills MINUTE VOLUME Normal [facility] Comment on above: Performed By: #### C BC #### [facility] [address] [place] [address] Dr. Ashlie Hills Oxygen (Bld) [Partial pressure] 46.3 mm[Hg] Critically low 80.0-100.0 [facility] Comment on above: Performed By: #### C BC #### [facility] [address] [place] [address] Dr. Ashlie Hills Oxygen saturation in Blood 83.9 % Critically low 95.0-100.0 [facility] Comment on above: Performed By: #### C BC #### [facility] [address] [place] [address] Dr. Ashlie Hills PCO2 54.2 mmHg Critically high 35.0-45.0 [facility] Comment on above: Performed By: #### C BC #### [facility] [address] [place] [address] Dr. Ashlie Hills PEEP [facility] Comment on above: Performed By: #### C BC #### [facility] [address] [place] [address] Dr. Ashlie Hills pH (Bld) 7.363 [pH] Normal 7.350-7.450 [facility] Comment on above: Performed By: #### C BC #### [facility] [address] [place] [address] Dr. Ashlie Hills PIP [facility] Comment on above: Performed By: #### C BC #### [facility] [address] [place] [address] Dr. Ashlie Hills PS [facility] Comment on above: Performed By: #### C BC #### [facility] [address] [place] [address] Dr. Ashlie Hills PUNCTURE SITE LR [facility] Comment on above: Performed By: #### C BC #### [facility] [address] [place] [address] Dr. Ashlie Hills RATE [facility] Comment on above: Performed By: #### C BC #### [facility] [address] [place] [address] Dr. Ashlie Hills VENT MODE [facility] Comment on above: Performed By: #### C BC #### [facility] [address] [place] [address] Dr. Ashlie Hills [facility] Comment on above: Performed By: #### C BC #### [facility] [address] [place] [address] Dr. Ashlie Hills BNPon 12-04-2022 Natriuretic peptide B (Bld) [Mass/Vol] 76.0 pg/mL Normal <=900.0 [facility] Comment on above: Performed By: #### P OCGLUC #### [facility] [address] [place] [address] Dr. Ashlie Hills CBC AUTO DIFFon 12-04-2022 BASO # 0.1 103/ul Normal 0.0-0.1 [facility] Comment on above: Performed By: #### C BC #### [facility] [address] [place] [address] Dr. Ashlie Hills Basophils/100 WBC (Bld) 0.6 % Normal 0.2-2.0 [facility] Comment on above: Performed By: #### C BC #### [facility] [address] [place] [address] Dr. Ashlie Hills EO # 0.2 103/ul Normal 0.0-0.7 [facility] Comment on above: Performed By: #### C BC #### [facility] [address] [place] [address] Dr. Ashlie Hills Eosinophils/100 WBC (Bld) 1.9 % Normal 0.9-7.0 [facility] Comment on above: Performed By: #### C BC #### [facility] [address] [place] [address] Dr. Ashlie Hills Erythrocyte distribution width (RBC) [Ratio] 15.0 % Normal 11.0-15.0 [facility] Comment on above: Performed By: #### C BC #### [facility] [address] [place] [address] Dr. Ashlie Hills Hematocrit (Bld) [Volume fraction] 49.1 % Critically high 36.0-48.0 [facility] Comment on above: Performed By: #### C BC #### [facility] [address] [place] [address] Dr. Ashlie Hills Hemoglobin (Bld) [Mass/Vol] 15.6 g/dL Normal 12.0-16.0 [facility] Comment on above: Performed By: #### C BC #### [facility] [address] [place] [address] Dr. Ashlie Hills IG # 0.02 10e3/ul Normal 0.00-0.03 [facility] Comment on above: Performed By: #### C BC #### [facility] [address] [place] [address] Dr. Ashlie Hills IG % 0.2 % Normal 0.0-0.5 [facility] Comment on above: Performed By: #### C BC #### [facility] [address] [place] [address] Dr. Ashlie Hills LYMPH # 2.8 103/ul Normal 1.2-3.8 [facility] Comment on above: Performed By: #### C BC #### [facility] [address] [place] [address] Dr. Ashlie Hills Lymphocytes/100 WBC (Bld) 29.9 % Normal 20.5-60.0 [facility] Comment on above: Performed By: #### C BC #### [facility] [address] [place] [address] Dr. Ashlie Hills MANUAL DIFF REQ NO Normal [facility] Comment on above: Performed By: #### C BC #### [facility] [address] [place] [address] Dr. Ashlie Hills MCH (RBC) [Entitic mass] 28.5 pg Normal 26.7-34.0 [facility] Comment on above: Performed By: #### C BC #### [facility] [address] [place] [address] Dr. Ashlie Hills MCHC (RBC) [Mass/Vol] 31.8 g/dL Normal 29.9-35.2 [facility] Comment on above: Performed By: #### C BC #### [facility] [address] [place] [address] Dr. Ashlie Hills MCV (RBC) [Entitic vol] 89.8 fL Normal 81.0-99.0 [facility] Comment on above: Performed By: #### C BC #### [facility] [address] [place] [address] Dr. Ashlie Hills MONO # 1.0 103/ul Critically high 0.3-0.8 [facility] Comment on above: Performed By: #### C BC #### [facility] [address] [place] [address] Dr. Ashlie Hills Monocytes/100 WBC (Bld) 10.6 % Normal 1.7-12.0 [facility] Comment on above: Performed By: #### C BC #### [facility] [address] [place] [address] Dr. Ashlie Hills NEUT # 5.3 103/ul Normal 1.4-6.5 [facility] Comment on above: Performed By: #### C BC #### [facility] [address] [place] [address] Dr. Ashlie Hills Neutrophils/100 WBC (Bld) 56.8 % Normal 43.0-75.0 [facility] Comment on above: Performed By: #### C BC #### [facility] [address] [place] [address] Dr. Ashlie Hills Platelet mean volume (Bld) [Entitic vol] 12.5 fL Normal 9.5-13.5 [facility] Comment on above: Performed By: #### C BC #### [facility] [address] [place] [address] Dr. Ashlie Hills PLT 109 103/ul Critically low 150-450 [facility] Comment on above: Performed By: #### C BC #### [facility] [address] [place] [address] Dr. Ashlie Hills RBC 5.47 106/ul Critically high 4.20-5.40 [facility] Comment on above: Performed By: #### C BC #### [facility] [address] [place] [address] Dr. Ashlie Hills WBC 9.4 103/ul Normal 4.0-11.0 [facility] Comment on above: Performed By: #### C BC #### [facility] [address] [place] [address] Dr. Ashlie Hills PROF 14(COMP METB)on 023 Albumin [Mass/Vol] 2.9 g/dL Critically low 3.4-5.0 [facility] Comment on above: Performed By: #### C BC #### [facility] [address] [place] [address] Dr. Ashlie Hills Albumin/Globulin [Mass ratio] 0.6 {ratio} Normal [facility] Comment on above: Performed By: #### C BC #### [facility] [address] [place] [address] Dr. Ashlie Hills ALP [Catalytic activity/Vol] 64 U/L Normal 46-116 [facility] Comment on above: Performed By: #### C BC #### [facility] [address] [place] [address] Dr. Ashlie Hills ALT [Catalytic activity/Vol] 16 U/L Normal 14-59 [facility] Comment on above: Performed By: #### C BC #### [facility] [address] [place] [address] Dr. Ashlie Hills Anion gap [Moles/Vol] 9.6 mmol/L Normal [facility] Comment on above: Performed By: #### C BC #### [facility] [address] [address] [address] Ashlie Hills AST [Catalytic activity/Vol] 16 U/L Normal 15-37 [facility] Comment on above: Performed By: #### C BC #### [facility] [address] [address] [address] Ashlie Hills Bilirubin [Mass/Vol] 0.5 mg/dL Normal 0.2-1.0 [facility] Comment on above: Performed By: #### C BC #### [facility] [address] [address] [address] Ashlie Hills Calcium [Mass/Vol] 8.7 mg/dL Normal 8.5-10.1 [facility] Comment on above: Performed By: #### C BC #### [facility] [address] [address] [address] Ashlie Hlils Chloride [Moles/Vol] 103 mmol/L Normal 98-107 [facility] Comment on above: Performed By: #### C BC #### [facility] [address] [address] [address] Ashlie Hills CO2 [Moles/Vol] 30.7 mmol/L Normal 21.0-32.0 [facility] Comment on above: Performed By: #### C BC #### [facility] [address] [address] [address] Ashlie Hills Creatinine [Mass/Vol] 0.96 mg/dL Normal 0.55-1.02 [facility] Comment on above: Performed By: #### C BC #### [facility] [address] [address] [address] Ashlie Hills EGFR-AF FIJIAN >60 Normal >=[address] [facility] Comment on above: Performed By: #### C BC #### [facility] [address] [address] [address] Ashlie Hills EGFR-NON AF FIJIAN >60 Normal >=60 [facility] Comment on above: Performed By: #### C BC #### [facility] [address] [address] [address] Ashlie Hills Globulin (S) [Mass/Vol] 4.7 g/dL Normal [facility] Comment on above: Performed By: #### C BC #### [facility] [address] [address] [address] Ashlie Hills Glucose [Mass/Vol] 170 mg/dL Critically high 74-106 [facility] Comment on above: Performed By: #### C BC #### [facility] [address] [address] [address] Ashlie Hills Potassium [Moles/Vol] 4.3 mmol/L Normal 3.5-5.1 [facility] Comment on above: Performed By: #### C BC #### [facility] [address] [place] [address] Dr. Ashlie Hills Protein [Mass/Vol] 7.6 g/dL Normal 6.4-8.2 [facility] Comment on above: Performed By: #### C BC #### [facility] [address] [place] [address] Dr. Ashlie Hills Sodium [Moles/Vol] 139 mmol/L Normal 136-145 [facility] Comment on above: Performed By: #### C BC #### [facility] [address] [place] [address] Dr. Ashlie Hills Urea nitrogen [Mass/Vol] 16.0 mg/dL Normal 7.0-18.0 [facility] Comment on above: Performed By: #### C BC #### [facility] [address] [place] [address] Dr. Ashlie Hills Urea nitrogen/Creatinine [Mass ratio] 16.7 mg/mg Normal [facility] Comment on above: Performed By: #### C BC #### [facility] [address] [place] [address] Dr. Ashlie Hills SYMPTOMATIC COVID-19 ANTIGEN on 12-04-2022 EUA Statement SEE BELOW Normal [facility] Comment on above: Result Comment: This [...] sooner. Performed By: #### C VDAGS #### [facility] [address] [place] [address] Dr. Ashlie Hills SARS-CoV-2 (COVID-19) RNA MADDY+probe Ql (Unsp spec) Negative Normal NEGATIVE [facility] Comment on above: Performed By: #### C VDAGS #### [facility] [address] [place] [address] Dr. Ashlie Hills TROPONIN, HIGH SENSITIVITYon 12-04-2022 HSTROP 8.9 pg/mL Normal 4.0-51.3 [facility] Comment on above: Result Comment: CUT- OFF POINTS HAVE BEEN ESTABLISHED BASED ON THE FOURTH UNIVERSAL DEFINITIONS OF MYOCARDIAL INFARCTION. THE UPPER REFERENCE LIMIT (URL) OF TROPONIN, DEFINED THE 99TH PERCENTILE OF cTnI DISTRIBUTION IN A REFERENCE POPULATION, HAS BEEN CONFIRMED THE DECISION THRESHOLD FOR SD DIAGNOSIS. Performed By: #### P OCGLUC #### [facility] [address] [place] [address] Dr. Ashlie Hills MICROALBUMIN, RAND URon - mALB 35.8 mg/dL Critically high <=30.0 [facility] Comment on above: Performed By: #### C VDAGS #### [facility] [address] [place] [address] Dr. Ashlie Hills UA RANDOM W/MICROSCOPICon BACTERIA NONE SEEN Normal NONE SEEN [facility] Comment on above: Performed By: #### C VDAGS #### [facility] [address] [place] [address] Dr. Ashlie Hills Bilirubin Ql (U) Negative Normal NEGATIVE [facility] Comment on above: Performed By: #### C VDAGS #### [facility] [address] [place] [address] Dr. Ashlie Hills CAST SEEN Abnormal NONE SEEN [facility] Comment on above: Performed By: #### C VDAGS #### [facility] [address] [place] [address] Dr. Ashlie Hills Clarity (U) CLEAR Normal CLEAR [facility] Comment on above: Performed By: #### C VDAGS #### [facility] [address] [place] [address] Dr. Ashlie Hills Color (U) YELLOW Normal YELLOW [facility] Comment on above: Performed By: #### C VDAGS #### [facility] [address] [place] [address] Dr. Ashlie Hills Crystals LM Nom (Urine sed) NONE SEEN Normal NONE SEEN [facility] Comment on above: Performed By: #### C VDAGS #### [facility] [address] [place] [address] Dr. Ashlie Hills Epithelial cells LM Ql (Urine sed) MODERATE Abnormal NONE SEEN /RARE [facility] Comment on above: Performed By: #### C VDAGS #### [facility] [address] [place] [address] Dr. Ashlie Hills Glucose Ql (U) Negative Normal NEGATIVE [facility] Comment on above: Performed By: #### C VDAGS #### [facility] [address] [place] [address] Dr. Ashlie Hills Hemoglobin Ql (U) TRACE-INTACT Abnormal NEGATIVE [facility] Comment on above: Performed By: #### C VDAGS #### [facility] [address] [place] [address] Dr. Ashlie Hills Ketones Ql (U) Negative Normal NEGATIVE [facility] Comment on above: Performed By: #### C VDAGS #### [facility] [address] [place] [address] Dr. Ashlie Hills LEUKOCYTES Negative Normal NEGATIVE [facility] Comment on above: Performed By: #### C VDAGS #### [facility] [address] [place] [address] Dr. Ashlie Hills MUCOUS NONE SEEN Normal NONE SEEN [facility] Comment on above: Performed By: #### C VDAGS #### [facility] [address] [place] [address] Dr. Ashlie Hills Nitrite Ql (U) Negative Normal NEGATIVE [facility] Comment on above: Performed By: #### C VDAGS #### [facility] [address] [place] [address] Dr. Ashlie Hills pH (U) 5.0 [pH] Normal 5-9 [facility] Comment on above: Performed By: #### C VDAGS #### [facility] [address] [place] [address] Dr. Ashlie Hills RBC 0-2 Normal 0-2 [facility] Comment on above: Performed By: #### C VDAGS #### [facility] [address] [place] [address] Dr. Ashlie Hills SPEC GRAVITY 1.030 Abnormal 1.005-<=1.025 [facility] Comment on above: Performed By: #### C VDAGS #### [facility] [address] [place] [address] Dr. Ashlie Hills UA PROTEIN 100 mg/dl Abnormal NEGATIVE/ TRACE [facility] Comment on above: Performed By: #### C VDAGS #### [facility] [address] [place] [address] Dr. Ashlie Hills Urobilinogen Qn (U) 0.2 {Little'U}/dL Normal 0.2 - 1. 0 [facility] Comment on above: Performed By: #### C VDAGS #### [facility] [address] [place] [address] Dr. Ashlie Hills WBC NONE SEEN Normal NONE SEEN [facility] Comment on above: Performed By: #### C VDAGS #### [facility] [address] [place] [address] Dr. Ashlie Hills CBC AUTO DIFFon 05-17-2023 BASO # 0.0 103/ul Normal 0.0-0.1 [facility] Comment on above: Performed By: #### C BC #### [facility] [address] [address] [address] Ashlie Hills Basophils/100 WBC (Bld) 0.3 % Normal 0.2-2.0 [facility] Comment on above: Performed By: #### C BC #### [facility] [address] [address] [address] Ashlie Hills EO # 0.4 103/ul Normal 0.0-0.7 [facility] Comment on above: Performed By: #### C BC #### [facility] [address] [place] [address] Dr. Ashlie Hills Eosinophils/100 WBC (Bld) 3.0 % Normal 0.9-7.0 [facility] Comment on above: Performed By: #### C BC #### [facility] [address] [place] [address] Dr. Ashlie Hills Erythrocyte distribution width (RBC) [Ratio] 15.3 % Critically high 11.0-15.0 [facility] Comment on above: Performed By: #### C BC #### [facility] [address] [place] [address] Dr. Ashlie Hills Hematocrit (Bld) [Volume fraction] 52.4 % Critically high 36.0-48.0 [facility] Comment on above: Performed By: #### C BC #### [facility] [address] [place] [address] Dr. Ashlie Hills Hemoglobin (Bld) [Mass/Vol] 16.8 g/dL Critically high 12.0-16.0 [facility] Comment on above: Performed By: #### C BC #### [facility] [address] [place] [address] Dr. Ashlie Hills IG # 0.04 10e3/ul Critically high 0.00-0.03 [facility] Comment on above: Performed By: #### C BC #### [facility] [address] [place] [address] Dr. Ashlie Hills IG % 0.3 % Normal 0.0-0.5 [facility] Comment on above: Performed By: #### C BC #### [facility] [address] [place] [address] Dr. Ashlie Hills LYMPH # 4.5 103/ul Critically high 1.2-3.8 [facility] Comment on above: Performed By: #### C BC #### [facility] [address] [place] [address] Dr. Ashlie Hills Lymphocytes/100 WBC (Bld) 33.2 % Normal 20.5-60.0 [facility] Comment on above: Performed By: #### C BC #### [facility] [address] [place] [address] Dr. Ashlie Hills MANUAL DIFF REQ NO Normal [facility] Comment on above: Performed By: #### C BC #### [facility] [address] [place] [address] Dr. Ashlie Hills MCH (RBC) [Entitic mass] 28.0 pg Normal 26.7-34.0 [facility] Comment on above: Performed By: #### C BC #### [facility] [address] [place] [address] Dr. Ashlie Hills MCHC (RBC) [Mass/Vol] 32.1 g/dL Normal 29.9-35.2 [facility] Comment on above: Performed By: #### C BC #### [facility] [address] [place] [address] Dr. Ashlie Hills MCV (RBC) [Entitic vol] 87.3 fL Normal 81.0-99.0 [facility] Comment on above: Performed By: #### C BC #### [facility] [address] [place] [address] Dr. Ashlie Hills MONO # 0.8 103/ul Normal 0.3-0.8 [facility] Comment on above: Performed By: #### C BC #### [facility] [address] [place] [address] Dr. Ashlie Hills Monocytes/100 WBC (Bld) 5.7 % Normal 1.7-12.0 [facility] Comment on above: Performed By: #### C BC #### [facility] [address] [address] [address] Ashlie Hills NEUT # 7.8 103/ul Critically high 1.4-6.5 [facility] Comment on above: Performed By: #### C BC #### [facility] [address] [address] [address] Ashlie Hills Neutrophils/100 WBC (Bld) 57.5 % Normal 43.0-75.0 [facility] Comment on above: Performed By: #### C BC #### [facility] [address] [place] [address] Dr. Ashlie Hills Platelet mean volume (Bld) [Entitic vol] 12.0 fL Normal 9.5-13.5 [facility] Comment on above: Performed By: #### C BC #### [facility] [address] [address] [address] Ashlie Hills PLT 152 103/ul Normal 150-450 [facility] Comment on above: Performed By: #### C BC #### [facility] [address] [place] [address] Dr. Ashlie Hills RBC 6.00 106/ul Critically high 4.20-5.40 [facility] Comment on above: Performed By: #### C BC #### [facility] [address] [place] [address] Dr. Ashlie Hills WBC 13.6 103/ul Critically high 4.0-11.0 [facility] Comment on above: Performed By: #### C BC #### [facility] [address] [place] [address] Dr. Ashlie Hills LIPID PROFILEon 11-22-2022 CHOL-HDL RATIO NORM SEE BELOW Normal [facility] Comment on above: Result Comment: 3.3 - 4.4 LOW RISK 4.4 - 7.1 AVERAGE RISK 7.1 - 11.0 MODERATE RISK >11.0 HIGH RISK Performed By: #### C BC #### [facility] [address] [address] [address] Ashlie Hills Cholesterol [Mass/Vol] 139 mg/dL Normal <=200 [facility] Comment on above: Performed By: #### C BC #### [facility] [address] [address] [address] Ashlie Hills Cholesterol in HDL [Mass/Vol] 35 mg/dL Critically low 40-60 [facility] Comment on above: Performed By: #### C BC #### [facility] [address] [address] [address] Ashlie Hills Cholesterol in LDL [Mass/Vol] 67.4 mg/dL Normal [facility] Comment on above: Performed By: #### C BC #### [facility] [address] [address] [address] Ashlie Hills Cholesterol.total/Chol esterol in HDL [Mass ratio] 4.0 {ratio} Normal [facility] Comment on above: Performed By: #### C BC #### [facility] [address] [address] [address] Ashlie Hills HDL NORMAL > or = 60 mg/dl - LOW CARDIOVASCULAR RISK <40 mg/dl - HIGH CARDIOVASCULAR RISK Normal [facility] Comment on above: Performed By: #### C BC #### [facility] [address] [address] [address] Ashlie Hills LDL CALC NORMAL SEE BELOW Normal [facility] Comment on above: Result Comment: <100 mg/dl OPTIMAL 100 - 129 mg/dl NEAR OR ABOVE OPTIMAL 130 - 159 mg/dl BORDERLINE HIGH 160 - 189 mg/dl HIGH >190 mg/dl VERY HIGH Performed By: #### C BC #### [facility] [address] [address] [address] Ashlie Hills Triglyceride [Mass/Vol] 183 mg/dL Critically high <=150 [facility] Comment on above: Performed By: #### C BC #### [facility] [address] [address] [address] Ashlie Hills VLDL CALC 36.6 mg/dL Normal [facility] Comment on above: Performed By: #### C BC #### [facility] [address] [place], [place] [address] Dr. Ashlie Hills MG MAMM SCREEN 3D ALEX CADon 11-22-2022 MG MAMM SCREEN 3D ALEX CAD Patient: MITZI MACIAS Exam Date: 11/22/2022 : 1970 Gender:F Ordering : SAYDA MCKAYLA [employer]AS [employer] Admission #: [id number] Family : Order #: [id number] CLICK HERE TO VIEW EXAM RADIOLOGY REPORT [...] unknown cancer at age 75. LOCATION: [facility] BREAST COMPOSITION: Almost entirely fatty. [...] M.D. on 11/22/2022 at 12:09 Normal [facility] PROF 14(COMP METB)on 023 Albumin [Mass/Vol] 3.0 g/dL Critically low 3.4-5.0 [facility] Comment on above: Performed By: #### C BC #### [facility] [address] [place], [place] [address] Dr. Ashlie Hills Albumin/Globulin [Mass ratio] 0.6 {ratio} Normal [facility] Comment on above: Performed By: #### C BC #### [facility] [address] [address] [address] Ashlie Hills ALP [Catalytic activity/Vol] 68 U/L Normal 46-116 [facility] Comment on above: Performed By: #### C BC #### [facility] [address] [address] [address] Ashlie Hills ALT [Catalytic activity/Vol] 14 U/L Normal 14-59 [facility] Comment on above: Performed By: #### C BC #### [facility] [address] [place] [address] Dr. Ashlie Hills Anion gap [Moles/Vol] 12.1 mmol/L Normal [facility] Comment on above: Performed By: #### C BC #### [facility] [address] [place] [address] Dr. Ashlie Hills AST [Catalytic activity/Vol] 9 U/L Critically low 15-37 [facility] Comment on above: Performed By: #### C BC #### [facility] [address] [place] [address] Dr. Ashlie Hills Bilirubin [Mass/Vol] 0.4 mg/dL Normal 0.2-1.0 [facility] Comment on above: Performed By: #### C BC #### [facility] [address] [place] [address] Dr. Ashlie Hills Calcium [Mass/Vol] 9.0 mg/dL Normal 8.5-10.1 [facility] Comment on above: Performed By: #### C BC #### [facility] [address] [place] [address] Dr. Ashlie Hills Chloride [Moles/Vol] 105 mmol/L Normal 98-107 [facility] Comment on above: Performed By: #### C BC #### [facility] [address] [place] [address] Dr. Ashlie Hills CO2 [Moles/Vol] 30.7 mmol/L Normal 21.0-32.0 [facility] Comment on above: Performed By: #### C BC #### [facility] [address] [address] [address] Ashlie Hills Creatinine [Mass/Vol] 0.77 mg/dL Normal 0.55-1.02 [facility] Comment on above: Performed By: #### C BC #### [facility] [address] [address] [address] Ashlie Hills EGFR-AF FIJIAN >60 Normal >=60 [facility] Comment on above: Performed By: #### C BC #### [facility] [address] [place] [address] Dr. Ashlie Hills EGFR-NON AF FIJIAN >60 Normal >=60 [facility] Comment on above: Performed By: #### C BC #### [facility] [address] [place] [address] Dr. Ashlie Hills Globulin (S) [Mass/Vol] 4.8 g/dL Normal [facility] Comment on above: Performed By: #### C BC #### [facility] [address] [place] [address] Dr. Ashlie Hills Glucose [Mass/Vol] 162 mg/dL Critically high 74-106 [facility] Comment on above: Performed By: #### C BC #### [facility] [address] [place] [address] Dr. Ashlie Hills Potassium [Moles/Vol] 3.8 mmol/L Normal 3.5-5.1 [facility] Comment on above: Performed By: #### C BC #### [facility] [address] [place] [address] Dr. Ashlie Hills Protein [Mass/Vol] 7.8 g/dL Normal 6.4-8.2 [facility] Comment on above: Performed By: #### C BC #### [facility] [address] [place] [address] Dr. Ashlie Hills Sodium [Moles/Vol] 144 mmol/L Normal 136-145 [facility] Comment on above: Performed By: #### C BC #### [facility] [address] [place] [address] Dr. Ashlie Hills Urea nitrogen [Mass/Vol] 24.0 mg/dL Critically high 7.0-18.0 [facility] Comment on above: Performed By: #### C BC #### [facility] [address] [place] [address] Dr. Ashlie Hills Urea nitrogen/Creatinine [Mass ratio] 31.2 mg/mg Normal [facility] Comment on above: Performed By: #### C BC #### [facility] [address] [place] [address] Dr. Ashlie Hills CBC AUTO DIFFon 10-05-2022 BASO # 0.1 103/ul Normal 0.0-0.1 [facility] Comment on above: Performed By: #### C BC #### [facility] [address] [place] [address] Dr. Ashlie Hills Basophils/100 WBC (Bld) 0.6 % Normal 0.2-2.0 [facility] Comment on above: Performed By: #### C BC #### [facility] [address] [place] [address] Dr. Ashlie Hills EO # 0.3 103/ul Normal 0.0-0.7 [facility] Comment on above: Performed By: #### C BC #### [facility] [address] [place] [address] Dr. Ashlie Hills Eosinophils/100 WBC (Bld) 2.1 % Normal 0.9-7.0 [facility] Comment on above: Performed By: #### C BC #### [facility] [address] [place] [address] Dr. Ashlie Hills Erythrocyte distribution width (RBC) [Ratio] 15.9 % Critically high 11.0-15.0 [facility] Comment on above: Performed By: #### C BC #### [facility] [address] [place] [address] Dr. Ashlie Hills Hematocrit (Bld) [Volume fraction] 51.8 % Critically high 36.0-48.0 [facility] Comment on above: Performed By: #### C BC #### [facility] [address] [place] [address] Dr. Ashlie Hills Hemoglobin (Bld) [Mass/Vol] 16.6 g/dL Critically high 12.0-16.0 [facility] Comment on above: Performed By: #### C BC #### [facility] [address] [place] [address] Dr. Ashlie Hills IG # 0.03 10e3/ul Normal 0.00-0.03 [facility] Comment on above: Performed By: #### C BC #### [facility] [address] [place] [address] Dr. Ashlie Hills IG % 0.2 % Normal 0.0-0.5 [facility] Comment on above: Performed By: #### C BC #### [facility] [address] [place] [address] Dr. Ashlie Hills LYMPH # 3.9 103/ul Critically high 1.2-3.8 [facility] Comment on above: Performed By: #### C BC #### [facility] [address] [place] [address] Dr. Ashlie Hills Lymphocytes/100 WBC (Bld) 31.7 % Normal 20.5-60.0 [facility] Comment on above: Performed By: #### C BC #### [facility] [address] [place] [address] Dr. Ashlie Hills MANUAL DIFF REQ NO Normal [facility] Comment on above: Performed By: #### C BC #### [facility] [address] [place] [address] Dr. Ashlie Hills MCH (RBC) [Entitic mass] 27.9 pg Normal 26.7-34.0 [facility] Comment on above: Performed By: #### C BC #### [facility] [address] [place] [address] Dr. Ashlie Hills MCHC (RBC) [Mass/Vol] 32.0 g/dL Normal 29.9-35.2 [facility] Comment on above: Performed By: #### C BC #### [facility] [address] [place] [address] Dr. Ashlie Hills MCV (RBC) [Entitic vol] 87.1 fL Normal 81.0-99.0 [facility] Comment on above: Performed By: #### C BC #### [facility] [address] [place] [address] Dr. Ashlie Hills MONO # 0.7 103/ul Normal 0.3-0.8 [facility] Comment on above: Performed By: #### C BC #### [facility] [address] [address] [address] Ashlie Hills Monocytes/100 WBC (Bld) 5.8 % Normal 1.7-12.0 [facility] Comment on above: Performed By: #### C BC #### [facility] [address] [place] [address] Dr. Ashlie Hills NEUT # 7.3 103/ul Critically high 1.4-6.5 [facility] Comment on above: Performed By: #### C BC #### [facility] [address] [place] [address] Dr. Ashlie Hills Neutrophils/100 WBC (Bld) 59.6 % Normal 43.0-75.0 [facility] Comment on above: Performed By: #### C BC #### [facility] [address] [place] [address] Dr. Ashlie Hills Platelet mean volume (Bld) [Entitic vol] 11.7 fL Normal 9.5-13.5 [facility] Comment on above: Performed By: #### C BC #### [facility] [address] [place] [address] Dr. Ashlie Hills PLT 117 103/ul Critically low 150-450 [facility] Comment on above: Performed By: #### C BC #### [facility] [address] [place], [place] [id number] Dr. Ashlie Hills RBC 5.95 106/ul Critically high 4.20-5.[address] [facility] Comment on above: Performed By: #### C BC #### [facility] [address] [place] [address] Dr. Ashlie Hills WBC 12.3 103/ul Critically high 4.0-11.0 [facility] Comment on above: Performed By: #### C BC #### [facility] [address] [place] [address] ABD/PELV W CONon [...] RICCO PICKARD Date: 2022-10-05 13:13 Normal [facility] URINE PROFILEon 3 Bilirubin Ql (U) Negative Normal NEGATIVE [facility] Comment on above: Performed By: #### P OCGLUC #### [facility] [address] [place] [address] Dr. Ashlie Hills Clarity (U) CLEAR Normal CLEAR [facility] Comment on above: Performed By: #### P OCGLUC #### [facility] [address] [place] [address] Dr. Ashlie Hills Color (U) YELLOW Normal YELLOW [facility] Comment on above: Performed By: #### P OCGLUC #### [facility] [address] [place] [address] Dr. Ashlie HOBBS A micrscopic examination will be performed if indicated. Normal [facility] Comment on above: Performed By: #### P OCGLUC #### [facility] [address] [address] [address] Ashlie Hills Glucose Ql (U) Negative Normal NEGATIVE [facility] Comment on above: Performed By: #### P OCGLUC #### [facility] [address] [address] [address] Ashlie Hills Hemoglobin Ql (U) Negative Normal NEGATIVE [facility] Comment on above: Performed By: #### P OCGLUC #### [facility] [address] [address] [address] Ashlie Hills Ketones Ql (U) Negative Normal NEGATIVE [facility] Comment on above: Performed By: #### P OCGLUC #### [facility] [address] [place] [address] Dr. Ashlie Hills LEUKOCYTES Negative Normal NEGATIVE [facility] Comment on above: Performed By: #### P OCGLUC #### [facility] [address] [address] [address] Ashlie Hills Nitrite Ql (U) Negative Normal NEGATIVE [facility] Comment on above: Performed By: #### P OCGLUC #### [facility] [address] [place] [address] Dr. Ashlie Hills pH (U) 6.0 [pH] Normal 5-9 [facility] Comment on above: Performed By: #### P OCGLUC #### [facility] [address] [place] [address] Dr. Ashlie Hills Protein (U) [Mass/Vol] 100 mg/dL Abnormal NEGAT YURY/ TRACE [facility] Comment on above: Performed By: #### P OCGLUC #### [facility] [address] [place] [address] Dr. Ashlie Hills SPEC GRAVITY 1.010 Normal 1.005-<=1.025 [facility] Comment on above: Performed By: #### P OCGLUC #### [facility] [address] [address] [address] Ashlie Hills UR MICRO IND INDICATED Normal [facility] Comment on above: Performed By: #### P OCGLUC #### [facility] [address] [place] [address] Dr. Ashlie Hills Urobilinogen Qn (U) 1.0 {Little'U}/dL Normal 0.2 - 1. 0 [facility] Comment on above: Performed By: #### P OCGLUC #### [facility] [address] [place] [address] Dr. Ashlie Hills LIPASEon 10-05-2022 Lipase [Catalytic activity/Vol] 1771.0 U/L Critically high 73.0-393.0 [facility] Comment on above: Performed By: #### C BC #### [facility] [address] [place] [address] Dr. Ashlie Hills PREG HCG QUALon 10-05-2022 , QUAL Negative Normal NEGATIVE [facility] Comment on above: Performed By: #### P OCGLUC #### [facility] [address] [place] [address] Dr. Ashlie Hills PROF 14(COMP METB)on 023 Albumin [Mass/Vol] 3.2 g/dL Critically low 3.4-5.0 [facility] Comment on above: Performed By: #### C BC #### [facility] [address] [place] [address] Dr. Ashlie Hills Albumin/Globulin [Mass ratio] 0.7 {ratio} Normal [facility] Comment on above: Performed By: #### C BC #### [facility] [address] [place] [address] Dr. Ashlie Hills ALP [Catalytic activity/Vol] 70 U/L Normal 46-116 [facility] Comment on above: Performed By: #### C BC #### [facility] [address] [place] [address] Dr. Ashlie Hills ALT [Catalytic activity/Vol] 11 U/L Critically low 14-59 [facility] Comment on above: Performed By: #### C BC #### [facility] [address] [address] [address] Ashlie Hills Anion gap [Moles/Vol] 10.3 mmol/L Normal [facility] Comment on above: Performed By: #### C BC #### [facility] [address] [address] [address] Ashlie Hills AST [Catalytic activity/Vol] 11 U/L Critically low 15-37 [facility] Comment on above: Performed By: #### C BC #### [facility] [address] [address] [address] Ashlie Hills Bilirubin [Mass/Vol] 0.9 mg/dL Normal 0.2-1.0 [facility] Comment on above: Performed By: #### C BC #### [facility] [address] [place] [address] Dr. Ashlie Hills Calcium [Mass/Vol] 9.3 mg/dL Normal 8.5-10.1 [facility] Comment on above: Performed By: #### C BC #### [facility] [address] [place] [address] Dr. Ashlie Hills Chloride [Moles/Vol] 105 mmol/L Normal 98-107 [facility] Comment on above: Performed By: #### C BC #### [facility] [address] [place] [address] Dr. Ashlie Hills CO2 [Moles/Vol] 30.6 mmol/L Normal 21.0-32.[address] [facility] Comment on above: Performed By: #### C BC #### [facility] [address] [place] [address] Dr. Ashlie Hills Creatinine [Mass/Vol] 0.62 mg/dL Normal 0.55-1.02 [facility] Comment on above: Performed By: #### C BC #### [facility] [address] [address] [address] Ashlie Hills EGFR-AF FIJIAN >60 Normal >=[address] [facility] Comment on above: Performed By: #### C BC #### [facility] [address] [place] [address] Dr. Ashlie Hills EGFR-NON AF FIJIAN >60 Normal >=60 [facility] Comment on above: Performed By: #### C BC #### [facility] [address] [place] [address] Dr. Ashlie Hills Globulin (S) [Mass/Vol] 4.6 g/dL Normal [facility] Comment on above: Performed By: #### C BC #### [facility] [address] [place] [address] Dr. Ashlie Hills Glucose [Mass/Vol] 85 mg/dL Normal 74-106 [facility] Comment on above: Performed By: #### C BC #### [facility] [address] [place] [address] Dr. Ashlie Hills Potassium [Moles/Vol] 3.9 mmol/L Normal 3.5-5.1 [facility] Comment on above: Performed By: #### C BC #### [facility] [address] [place] [address] Dr. Ashlie Hills Protein [Mass/Vol] 7.8 g/dL Normal 6.4-8.2 [facility] Comment on above: Performed By: #### C BC #### [facility] [address] [place] [address] Dr. Ashlie Hills Sodium [Moles/Vol] 142 mmol/L Normal 136-145 [facility] Comment on above: Performed By: #### C BC #### [facility] [address] [place] [address] Dr. Ashlie Hills Urea nitrogen [Mass/Vol] 12.0 mg/dL Normal 7.0-18.0 [facility] Comment on above: Performed By: #### C BC #### [facility] [address] [place] [address] Dr. Ashlie Hills Urea nitrogen/Creatinine [Mass ratio] 19.4 mg/mg Normal [facility] Comment on above: Performed By: #### C BC #### [facility] [address] [place] [address] Dr. Ashlie Hills URINE MICROSCOPIC ONLYon BACTERIA TRACE Abnormal NONE SEEN [facility] Comment on above: Performed By: #### P OCGLUC #### [facility] [address] [place] [address] Dr. Ashlie Hills Bacteria identified Cx Nom (U) NOT INDICATED Normal [facility] Comment on above: Performed By: #### P OCGLUC #### [facility] [address] [place] [address] Dr. Ashlie Hills CAST NONE SEEN Normal NONE SEEN [facility] Comment on above: Performed By: #### P OCGLUC #### [facility] [address] [place] [address] Dr. Ashlie Hills Crystals LM Nom (Urine sed) NONE SEEN Normal NONE SEEN [facility] Comment on above: Performed By: #### P OCGLUC #### [facility] [address] [place] [address] Dr. Ashlie Hills Epithelial cells LM Ql (Urine sed) MODERATE Abnormal NONE SEEN /RARE [facility] Comment on above: Performed By: #### P OCGLUC #### [facility] [address] [place] [address] Dr. Ashlie Hills MUCOUS NONE SEEN Normal NONE SEEN [facility] Comment on above: Performed By: #### P OCGLUC #### [facility] [address] [place] [address] Dr. Ashlie Hills RBC 0-2 Normal 0-2 [facility] Comment on above: Performed By: #### P OCGLUC #### [facility] [address] [place] [address] Dr. Ashlie Hills WBC 0-2 Abnormal NONE SEEN [facility] Comment on above: Performed By: #### P OCGLUC #### [facility] [address] [place] [address] Dr. Ashlie Hills Covid-19 PCR ([facility])on 09-06 SARS-CoV-2 (COVID-19) RNA MADDY+probe [...] for this test is supported by the [place] of Health and Human Service's declaration that [...] used). Performed By: #### C VDAGS #### [facility] [address] [place] [address] Dr. Ashlie Hills INFLUENZA A AND B AGon 09-21 [facility] SEE BELOW Normal [facility] Comment on above: Result Comment: Nega tive for Flu A protein angiten. Infection due to Flu A cannot be ruled out. Flu A angiten in the sample may be below the detection limit of the test. Performed By: #### I NFLUAB #### [facility] [address] [place] [address] Dr. Ashlie Hills INFLUBNEG SEE BELOW Normal [facility] Comment on above: Result Comment: Nega tive for Flu B protein antigen. Infection due to Flu B cannot be ruled out. Flu B antigen in the sample may be below the detection limit of the test. Performed By: #### I NFLUAB #### [facility] [address] [place] [address] Dr. Ashlie Hills INFLUENZA A AG Negative Normal NEGATIVE SEE COMMENT [facility] Comment on above: Performed By: #### I NFLUAB #### [facility] [address] [place] [address] Dr. Ashlie Hills INFLUENZA B AG Negative Normal NEGATIVE SEE COMMENT [facility] Comment on above: Performed By: #### I NFLUAB #### [facility] [address] [place] [address] ABD/PELV W CONon [...] to at least 10/21/2018, unchanged. https://www.ncbi.nlm .nih.gov/pmc/article s/[id number]/ Electronically authenticated by: COLLIN HUERTAS Date: 2022-07-27 14:56 Normal [facility] CREATININEon 07-18-2022 Creatinine [Mass/Vol] 0.81 mg/dL Normal 0.55-1.02 [facility] Comment on above: Performed By: #### C BC #### [facility] [address] [place] [address] Dr. Ashlie Hills EGFR-AF FIJIAN >60 Normal >=60 [facility] Comment on above: Performed By: #### C BC #### [facility] [address] [place] [address] Dr. Ashlie Hills EGFR-NON AF FIJIAN >60 Normal >=60 [facility] Comment on above: Performed By: #### C BC #### [facility] [address] [place] [address] LOW EXT W [...] PATRICIA VELOZ Date: 2022-07-18 14:58 Normal [facility] XR KNEE LT 1_2 Von [...] HATTIE BAUTISTA Date: 2022-07-18 12:00 Normal [facility] Covid-19 PCR (CVDTB)on 06-09 SARS-CoV-2 [...] for this test is supported by the [place] of Health and Human Service's (HHS's) declaration [...] SARS-CoV-2. Performed By: #### C BC #### [facility] [address] [place] [address] Dr. Ashlie Hills INFLUENZA A AND B AGon 07-06 INFLUANE SEE BELOW Normal [facility] Comment on above: Result Comment: Nega tive for Flu A protein angiten. Infection due to Flu A cannot be ruled out. Flu A angiten in the sample may be below the detection limit of the test. Performed By: #### C BC #### [facility] [address] [place] [address] Dr. Ashlie Hills INFLUBNEG SEE BELOW Normal [facility] Comment on above: Result Comment: Nega tive for Flu B protein antigen. Infection due to Flu B cannot be ruled out. Flu B antigen in the sample may be below the detection limit of the test. Performed By: #### C BC #### [facility] [address] [place] [address] Dr. Ashlie Hills INFLUENZA A AG Negative Normal NEGATIVE SEE COMMENT [facility] Comment on above: Performed By: #### C BC #### [facility] [address] [place] [address] Dr. Ashlie Hills INFLUENZA B AG Negative Normal NEGATIVE SEE COMMENT [facility] Comment on above: Performed By: #### C BC #### [facility] [address] [place] [address] Dr. Ashlie Hills POINT OF CARE GLUCOSEon - Glucose [Mass/Vol] 108 mg/dL Critically high 74-106 [facility] Comment on above: Performed By: #### C BC #### [facility] [address] [place] [address] Dr. Ashlie Hills RAGHU by IFAon 03-07-2022 Antinuclear Antibodies, IFA Negative Normal [facility] Comment on above: Result Comment: Nega tive <1:80 Borderline 1:80 Positive >1:80 ICAP nomenclature: AC-0 For more information about Hep-2 cell patterns use ANApatterns.org, the official website for the International Consensus on Antinuclear Antibody (RAGHU) Patterns (ICAP). Performed By: #### A ROSE #### [facility] [address] [place] [address] Dr. Ashlie Hills IMMUNOFIXATION (TREVON), URINEo n 03-07-2022 TREVON Interpretation:U Comment Normal [facility] Comment on above: Result Comment: No m onoclonality detected. Performed By: #### C BC #### [facility] [address] [place] [address] Dr. Ashlie Hills IMMUNOFIXATION(TREVON),PROTEIN ELEC(PE),[facility] 03-07-2022 Albumin [Mass/Vol] 3.0 g/dL Normal 2.9-4.4 [facility] Comment on above: Performed By: #### I NFLUAB #### [facility] [address] [place] [address] Dr. Ashlie Hills Albumin/Globulin [Mass ratio] 0.8 {ratio} Normal 0.7-1.7 [facility] Comment on above: Performed By: #### I NFLUAB #### [facility] [address] [place] [address] Dr. Ashlie Hills Cyrth-9-Usddrubn 0.3 g/dL Normal 0.0-0.[address] [facility] Comment on above: Performed By: #### I NFLUAB #### [facility] [address] [place] [address] Dr. Ashlie Hills Hpqfv-7-Hhwqvasr 1.0 g/dL Normal 0.4-1.[address] [facility] Comment on above: Performed By: #### I NFLUAB #### [facility] [address] [place] [address] Dr. Ashlie Hills Beta Globulin 1.8 g/dL Critically high 0.7-1.3 [facility] Comment on above: Performed By: #### I NFLUAB #### [facility] [address] [place] [address] Dr. Ashlie Hills Free [place] Lt Chains,S 45.2 mg/L Critically high 3.3-19.4 [facility] Comment on above: Performed By: #### I NFLUAB #### [facility] [address] [place] [address] Dr. Ashlie Hills Free Lambda Lt Chains,S 40.3 mg/L Critically high 5.7-26.3 [facility] Comment on above: Performed By: #### I NFLUAB #### [facility] [address] [address] [address] Ashlie Hills Gamma Globulin 0.8 g/dL Normal 0.4-1.8 [facility] Comment on above: Performed By: #### I NFLUAB #### [facility] [address] [place] [address] Dr. Ashlie Hills Globulin (S) [Mass/Vol] 3.9 g/dL Normal 2.2-3.9 [facility] Comment on above: Performed By: #### I NFLUAB #### [facility] [address] [place] [address] Dr. Ashlie Hills Immunofixation Result, Serum Comment Normal [facility] Comment on above: Result Comment: No m onoclonality detected. Performed By: #### I NFLUAB #### [facility] [address] [place] [address] Dr. Ashlie Hills Immunoglobulin A, Qn, Serum 776 mg/dL Critically high 87-352 [facility] Comment on above: Performed By: #### I NFLUAB #### [facility] [address] [place] [address] Dr. Ashlie Hills Immunoglobulin G, Qn, Serum 955 mg/dL Normal 586-1602 [facility] Comment on above: Performed By: #### I NFLUAB #### [facility] [address] [place] [address] Dr. Ashlie Hills Immunoglobulin M, Qn, Serum 39 mg/dL Normal 26-217 [facility] Comment on above: Performed By: #### I NFLUAB #### [facility] [address] [place] [address] Dr. Ashlie Hills [place]/Lambda Ratio, S 1.12 Normal 0.26-1.65 [facility] Comment on above: Performed By: #### I NFLUAB #### [facility] [address] [place] [address] Dr. Ashlie Hills M-Bright Not Observed Normal Not Observed [facility] Comment on above: Performed By: #### I NFLUAB #### [facility] [address] [place] [address] Dr. Ashlie Hills PDF . Normal [facility] Comment on above: Performed By: #### I NFLUAB #### [facility] [address] [place] [address] Dr. Ashlie Hills Please note: Comment Normal [facility] Comment on above: Result Comment: Prot ein electrophoresis scan will follow via computer, mail, or equipment man delivery. Performed By: #### I NFLUAB #### [facility] [address] [place] [address] Dr. Ashlie Hills Protein [Mass/Vol] 6.9 g/dL Normal 6.0-8.5 [facility] Comment on above: Performed By: #### I NFLUAB #### [facility] [address] [place] [address] Dr. Ashlie Hills C-PEPTIDE, SERUMon C-Peptide, Serum 3.1 ng/mL Normal 1.1-4.4 [facility] Comment on above: Result Comment: C-Pe ptide reference interval is for fasting patients. Performed By: #### C PEPT #### [facility] [address] [place] [address] Dr. Ashlie Hills HEP B SURFACE ANTIGEN SCREEN on 03-04-2022 HBsAg Screen Negative Normal Negative [facility] Comment on above: Performed By: #### C BC #### [facility] [address] [place] [address] Dr. Ashlie Hills HEPATITIS C VIRUS AB W/ REFL EX QUANTon 03-04-2022 HCV AB <0.1 Normal 0.0-0.9 [facility] Comment on above: Performed By: #### I NFLUAB #### [facility] [address] [address] [address] Ashlie Hills Interpretation: Comment Normal [facility] Comment on above: Result Comment: Nega tive Not infected with HCV, unless recent infection is suspected or other evidence exists to indicate HCV infection. Performed By: #### I NFLUAB #### [facility] [address] [address] [address] Ashlie Hills MICROALBUMIN/ CREATININE RAT IOon 03-04-2022 Albumin, Urine 367.4 ug/mL Normal Not Estab. [facility] Comment on above: Performed By: #### C BC #### [facility] [address] [address] [address] Ashlie Hills Albumin/ Creatinine Ratio 239 mg/g creat Critically high 0-29 [facility] [facility] Comment on above: Result Comment: Norm al: 0 - 29 Moderately increased: 30 - 300 Severely increased: >300 Performed By: #### C BC #### [facility] [address] [address] [address] Ashlie Hills Creatinine, Urine 153.9 mg/dL Normal Not Estab. [facility] Comment on above: Performed By: #### C BC #### [facility] [address] [address] [address] Ashlie Hills VIT D 25-OH LABCORPon 2021 Vitamin D, 25-Hydroxy <4.0 Critically low 30.0-100.0 [facility] Comment on above: Result Comment: Graciela min D deficiency has been defined by the [place] [employer] and an Endocrine Society practice guideline as a level of serum 25-OH vitamin D less than 20 ng/mL (1,2). The Endocrine Society went on to further define vitamin D insufficiency as a level between 21 and 29 ng/mL (2). 1. IOM ([place] [employer]). 2010. Dietary reference intakes for calcium and D. [place]: The National Academies Press. 2. Lynda MF, Keely [place], Leandra LOPEZ, et al. Evaluation, treatment, and prevention of vitamin D deficiency: an Endocrine Society clinical practice guideline. JCEM. 2010; 96(7):1911-30. Performed By: #### C BC #### [facility] [address] [place] [address] Dr. Ashlie Hills GLYCOHEMOGLOBIN A1Con 2021 ADA RECOMMENDATION SEE BELOW Normal [facility] Comment on above: Result Comment: ADA RECOMMENDED LIMIT 4.0 - 6.0 ADA THERAPEUTIC TARGET < 7.0 ACTION SUGGESTED > 7.0 Performed By: #### C VDAGS #### [facility] [address] [place] [address] Dr. Ashlie Hills Glucose [Mass/Vol] 295 mg/dL Normal [facility] Comment on above: Performed By: #### C VDAGS #### [facility] [address] [place] [address] Dr. Ashlie Hills HbA1c (Bld) [Mass fraction] 11.9 % Critically high 4.5-6.2 [facility] Comment on above: Performed By: #### C VDAGS #### [facility] [address] [place] [address] Dr. Ashlie Hills HEMOGRAM AND PLATELon 2021 Hematocrit (Bld) [Volume fraction] 56.3 % Critically high 36.0-48.0 [facility] Comment on above: Performed By: #### C VDAGS #### [facility] [address] [place] [address] Dr. Ashlie Hills Hemoglobin (Bld) [Mass/Vol] 18.0 g/dL Critically high 12.0-16.0 [facility] Comment on above: Performed By: #### C VDAGS #### [facility] [address] [place] [address] Dr. Ashlie Hills MCH (RBC) [Entitic mass] 29.5 pg Normal 26.7-34.0 [facility] Comment on above: Performed By: #### C VDAGS #### [facility] [address] [place] [address] Dr. Ashlie Hills MCHC (RBC) [Mass/Vol] 32.0 g/dL Normal 29.9-35.2 [facility] Comment on above: Performed By: #### C VDAGS #### [facility] [address] [address] [address] Ashlie Hills MCV (RBC) [Entitic vol] 92.1 fL Normal 81.0-99.0 [facility] Comment on above: Performed By: #### C VDAGS #### [facility] [address] [address] [address] Ashlie Hills PLT 123 103/ul Critically low 150-450 [facility] Comment on above: Performed By: #### C VDAGS #### [facility] [address] [address] [address] Ashlie Hills RBC 6.11 106/ul Critically high 4.20-5.40 [facility] Comment on above: Performed By: #### C VDAGS #### [facility] [address] [address] [address] Ashlie Hills WBC 16.4 103/ul Critically high 4.0-11.0 [facility] Comment on above: Performed By: #### C VDAGS #### [facility] [address] [address] [address] Ashlie Hills LIPID PROFILEon 03-03-2022 CHOL-HDL RATIO NORM SEE BELOW Normal [facility] Comment on above: Result Comment: 3.3 - 4.4 LOW RISK 4.4 - 7.1 AVERAGE RISK 7.1 - 11.0 MODERATE RISK >11.0 HIGH RISK Performed By: #### C VDAGS #### [facility] [address] [place] [address] Dr. Ashlie Hills Cholesterol [Mass/Vol] 159 mg/dL Normal <=200 [facility] Comment on above: Performed By: #### C VDAGS #### [facility] [address] [address] [address] Ashlie Hills Cholesterol in HDL [Mass/Vol] 40 mg/dL Normal 40-60 [facility] Comment on above: Performed By: #### C VDAGS #### [facility] [address] [address] [address] Ashlie Hills Cholesterol in LDL [Mass/Vol] 81.8 mg/dL Normal [facility] Comment on above: Performed By: #### C VDAGS #### [facility] [address] [address] [address] Ashlie Hills Cholesterol.total/Chol esterol in HDL [Mass ratio] 4.0 {ratio} Normal [facility] Comment on above: Performed By: #### C VDAGS #### [facility] [address] [address] [address] Ashlie Hills HDL NORMAL > or = 60 mg/dl - LOW CARDIOVASCULAR RISK <40 mg/dl - HIGH CARDIOVASCULAR RISK Normal [facility] Comment on above: Performed By: #### C VDAGS #### [facility] [address] [place] [address] Dr. Ashlie Hills LDL CALC NORMAL SEE BELOW Normal [facility] Comment on above: Result Comment: <100 mg/dl OPTIMAL 100 - 129 mg/dl NEAR OR ABOVE OPTIMAL 130 - 159 mg/dl BORDERLINE HIGH 160 - 189 mg/dl HIGH >190 mg/dl VERY HIGH Performed By: #### C VDAGS #### [facility] [address] [address] [address] Ashlie Hills Triglyceride [Mass/Vol] 186 mg/dL Critically high <=150 [facility] Comment on above: Performed By: #### C VDAGS #### [facility] [address] [address] [address] Ashlie Hills VLDL CALC 37.2 mg/dL Normal [facility] Comment on above: Performed By: #### C VDAGS #### [facility] [address] [address] [address] Ashlie Hills RENAL FUNCTION PANELon 03-03 Albumin [Mass/Vol] 3.1 g/dL Critically low 3.4-5.0 [facility] Comment on above: Performed By: #### C BC #### [facility] [address] [address] [address] Ashlie Hills Calcium [Mass/Vol] 9.2 mg/dL Normal 8.5-10.1 [facility] Comment on above: Performed By: #### C BC #### [facility] [address] [address] [address] Ashlie Hills Chloride [Moles/Vol] 102 mmol/L Normal 98-107 [facility] Comment on above: Performed By: #### C BC #### [facility] [address] [address] [address] Ashlie Hills CO2 [Moles/Vol] 31.9 mmol/L Normal 21.0-32.0 [facility] Comment on above: Performed By: #### C BC #### [facility] [address] [address] [address] Ashlie Hills Creatinine [Mass/Vol] 0.68 mg/dL Normal 0.55-1.02 [facility] Comment on above: Performed By: #### C BC #### [facility] [address] [place] [address] Dr. Ashlie Hills EGFR-AF FIJIAN >60 Normal >=60 [facility] Comment on above: Performed By: #### C BC #### [facility] [address] [place] [address] Dr. Ashlie Hills EGFR-NON AF FIJIAN >60 Normal >=60 [facility] Comment on above: Performed By: #### C BC #### [facility] [address] [place] [address] Dr. Ashlie Hills Glucose [Mass/Vol] 131 mg/dL Critically high 74-106 [facility] Comment on above: Performed By: #### C BC #### [facility] [address] [place] [address] Dr. Ashlie Hills Phosphate [Mass/Vol] 4.0 mg/dL Normal 2.6-4.7 [facility] Comment on above: Performed By: #### C BC #### [facility] [address] [place] [address] Dr. Ashlie Hills Potassium [Moles/Vol] 4.0 mmol/L Normal 3.5-5.1 [facility] Comment on above: Performed By: #### C BC #### [facility] [address] [place] [address] Dr. Ashlie Hills Sodium [Moles/Vol] 141 mmol/L Normal 136-145 [facility] Comment on above: Performed By: #### C BC #### [facility] [address] [place] [address] Dr. Ashlie Hills Urea nitrogen [Mass/Vol] 17.0 mg/dL Normal 7.0-18.0 [facility] Comment on above: Performed By: #### C BC #### [facility] [address] [place] [address] Dr. Ashlie Hills UA RANDOM W/MICROSCOPICon BACTERIA NONE SEEN Normal NONE SEEN [facility] Comment on above: Performed By: #### I NFLUAB #### [facility] [address] [place] [address] Dr. Ashlie Hills Bilirubin Ql (U) Negative Normal NEGATIVE [facility] Comment on above: Performed By: #### I NFLUAB #### [facility] [address] [place] [address] Dr. Ashlie Hills CAST NONE SEEN Normal NONE SEEN [facility] Comment on above: Performed By: #### I NFLUAB #### [facility] [address] [place] [address] Dr. Ashlie Hills Clarity (U) CLEAR Normal CLEAR [facility] Comment on above: Performed By: #### I NFLUAB #### [facility] [address] [place] [address] Dr. Ashlie Hills Color (U) YELLOW Normal YELLOW [facility] Comment on above: Performed By: #### I NFLUAB #### [facility] [address] [place] [address] Dr. Ashlie Hills Crystals LM Nom (Urine sed) NONE SEEN Normal NONE SEEN [facility] Comment on above: Performed By: #### I NFLUAB #### [facility] [address] [place] [address] Dr. Ashlie Hills Epithelial cells LM Ql (Urine sed) FEW Abnormal NONE SEEN /RARE [facility] Comment on above: Performed By: #### I NFLUAB #### [facility] [address] [address] [address] Ashlie Hills Glucose Ql (U) Negative Normal NEGATIVE [facility] Comment on above: Performed By: #### I NFLUAB #### [facility] [address] [address] [address] Ashlie Hills Hemoglobin Ql (U) Negative Normal NEGATIVE [facility] Comment on above: Performed By: #### I NFLUAB #### [facility] [address] [address] [address] Ashlie Hills Ketones Ql (U) Negative Normal NEGATIVE [facility] Comment on above: Performed By: #### I NFLUAB #### [facility] [address] [place] [address] Dr. Ashlie Hills LEUKOCYTES Negative Normal NEGATIVE [facility] Comment on above: Performed By: #### I NFLUAB #### [facility] [address] [place] [address] Dr. Ashlie Hills MUCOUS NONE SEEN Normal NONE SEEN [facility] Comment on above: Performed By: #### I NFLUAB #### [facility] [address] [address] [address] Ashlie Hills Nitrite Ql (U) Negative Normal NEGATIVE [facility] Comment on above: Performed By: #### I NFLUAB #### [facility] [address] [place] [address] Dr. Ashlie Hills pH (U) 5.5 [pH] Normal 5-9 [facility] Comment on above: Performed By: #### I NFLUAB #### [facility] [address] [place] [address] Dr. Ashlie Hills RBC 0-2 Normal 0-2 [facility] Comment on above: Performed By: #### I NFLUAB #### [facility] [address] [place] [address] Dr. Ashlie Hills SPEC GRAVITY >=1.030 Abnormal 1.005-<=1.025 [facility] Comment on above: Performed By: #### I NFLUAB #### [facility] [address] [address] [address] Ashlie Hills UA PROTEIN 100 mg/dl Abnormal NEGATIVE/ TRACE [facility] Comment on above: Performed By: #### I NFLUAB #### [facility] [address] [place] [address] Dr. Ashlie Hills Urobilinogen Qn (U) 0.2 {Little'U}/dL Normal 0.2 - 1. 0 [facility] Comment on above: Performed By: #### I NFLUAB #### [facility] [address] [address] [address] Ashlie Hills WBC NONE SEEN Normal NONE SEEN [facility] Comment on above: Performed By: #### I NFLUAB #### [facility] [address] [place] [address] Dr. Ashlie iHlls URIC ACID SERUMon 03-03-2022 Urate [Mass/Vol] 5.0 mg/dL Normal 2.6-6.0 [facility] Comment on above: Performed By: #### I NFLUAB #### [facility] [address] [place] [address] Dr. Ashlie Hills URINE T PROTEIN CREAT RATIOo n 03-03-2022 Protein (U) [Mass/Vol] 77.9 mg/dL Critically high <=12.0 [facility] Comment on above: Performed By: #### C VDAGS #### [facility] [address] [place] [address] Dr. Ashlie Hills UR PROT CREAT RAT 0.44 Normal [facility] Comment on above: Performed By: #### C VDAGS #### [facility] [address] [place] [address] Dr. Ashlie Hills URINE CREAT 175.15 mg/dL Normal 20.00-300.00 [facility] Comment on above: Performed By: #### C VDAGS #### [facility] [address] [place] [address] Dr. Ashlie Hills CULTURE URINEon 12-25-2021 CULTURE URINE Culture Observations: GREATER THAN TWO ORGANISMS PRESENT, HEAVILY MIXED. PLEASE RESUBMIT CLEAN CATCH MID-STREAM URINE IF CLINICALLY INDICATED. Normal [facility] Comment on above: Performed By: #### I NFLUAB #### [facility] [address] [place] [address] Dr. Ashlie Hills CBC AUTO DIFFon 12-24-2021 BASO # 0.1 103/ul Normal 0.0-0.1 [facility] Comment on above: Performed By: #### C BC #### [facility] [address] [place] [address] Dr. Ashlie Hills Basophils/100 WBC (Bld) 0.5 % Normal 0.2-2.0 [facility] Comment on above: Performed By: #### C BC #### [facility] [address] [place] [address] Dr. Ashlie Hills EO # 0.4 103/ul Normal 0.0-0.7 [facility] Comment on above: Performed By: #### C BC #### [facility] [address] [place] [address] Dr. Ashlie Hills Eosinophils/100 WBC (Bld) 2.4 % Normal 0.9-7.0 [facility] Comment on above: Performed By: #### C BC #### [facility] [address] [place] [address] Dr. sAhlie Hills Erythrocyte distribution width (RBC) [Ratio] 14.1 % Normal 11.0-15.0 [facility] Comment on above: Performed By: #### C BC #### [facility] [address] [place] [address] Dr. Ashlie Hills Hematocrit (Bld) [Volume fraction] 55.9 % Critically high 36.0-48.0 [facility] Comment on above: Performed By: #### C BC #### [facility] [address] [place] [address] Dr. Ashlie Hills Hemoglobin (Bld) [Mass/Vol] 17.9 g/dL Critically high 12.0-16.0 [facility] Comment on above: Performed By: #### C BC #### [facility] [address] [place] [address] Dr. Ashlie Hills IG # 0.06 10e3/ul Critically high 0.00-0.03 [facility] Comment on above: Performed By: #### C BC #### [facility] [address] [place] [address] Dr. Ashlie Hills IG % 0.4 % Normal 0.0-0.5 [facility] Comment on above: Performed By: #### C BC #### [facility] [address] [place] [address] Dr. Ashlie Hills LYMPH # 5.8 103/ul Critically high 1.2-3.8 [facility] Comment on above: Performed By: #### C BC #### [facility] [address] [place] [address] Dr. Ashlie Hills Lymphocytes/100 WBC (Bld) 35.4 % Normal 20.5-60.0 [facility] Comment on above: Performed By: #### C BC #### [facility] [address] [place] [address] Dr. Ashlie Hills MANUAL DIFF REQ NO Normal [facility] Comment on above: Performed By: #### C BC #### [facility] [address] [place] [address] Dr. Ashlie Hills MCH (RBC) [Entitic mass] 29.4 pg Normal 26.7-34.0 [facility] Comment on above: Performed By: #### C BC #### [facility] [address] [place] [address] Dr. Ashlie Hills MCHC (RBC) [Mass/Vol] 32.0 g/dL Normal 29.9-35.2 [facility] Comment on above: Performed By: #### C BC #### [facility] [address] [place] [address] Dr. Ashlie Hills MCV (RBC) [Entitic vol] 91.8 fL Normal 81.0-99.0 [facility] Comment on above: Performed By: #### C BC #### [facility] [address] [place] [address] Dr. Ashlie Hills MONO # 0.8 103/ul Normal 0.3-0.8 [facility] Comment on above: Performed By: #### C BC #### [facility] [address] [place] [address] Dr. Ashlie Hills Monocytes/100 WBC (Bld) 4.8 % Normal 1.7-12.0 [facility] Comment on above: Performed By: #### C BC #### [facility] [address] [place] [address] Dr. Ashlie Hills NEUT # 9.3 103/ul Critically high 1.4-6.5 [facility] Comment on above: Performed By: #### C BC #### [facility] [address] [place] [address] Dr. Ashlie Hills Neutrophils/100 WBC (Bld) 56.5 % Normal 43.0-75.0 [facility] Comment on above: Performed By: #### C BC #### [facility] [address] [place] [address] Dr. Ashlie Hills Platelet mean volume (Bld) [Entitic vol] 12.9 fL Normal 9.5-13.5 [facility] Comment on above: Performed By: #### C BC #### [facility] [address] [place] [address] Dr. Ashlie Hills PLT 127 103/ul Critically low 150-450 [facility] Comment on above: Performed By: #### C BC #### [facility] [address] [place] [address] Dr. Ashlie Hills RBC 6.09 106/ul Critically high 4.20-5.[address] [facility] Comment on above: Performed By: #### C BC #### [facility] [address] [place] [address] Dr. Ashlie Hills WBC 16.4 103/ul Critically high 4.0-11.[address] [facility] Comment on above: Performed By: #### C BC #### [facility] [address] [place] [address] ABD/PELVIS WO CONon [...] Severe right hip degenerative change. Normal [facility] URINE PROFILEon 2 Bilirubin Ql (U) Negative Normal NEGATIVE [facility] Comment on above: Performed By: #### Tracey LYMAN UMICRO #### [facility] [address] [place] [address] Dr. Ashlie Hills Clarity (U) CLEAR Normal CLEAR [facility] Comment on above: Performed By: #### Tracey LYMAN UMICRO #### [facility] [address] [place] [address] Dr. Ashlie Hills Color (U) DK. ORANGE Abnormal YELLOW [facility] Comment on above: Performed By: #### Tracey LYMAN UMICRO #### [facility] [address] [place] [address] Dr. Ashlie HOBBS A micrscopic examination will be performed if indicated. Normal [facility] Comment on above: Performed By: #### Tracey LYMAN UMICRO #### [facility] [address] [place] [address] Dr. Ashlie Hills Glucose Ql (U) 250 mg/dl Abnormal NEGATIVE [facility] Comment on above: Performed By: #### Tracey LYMAN UMICRO #### [facility] [address] [place] [address] Dr. Ashlie Hills Hemoglobin Ql (U) Negative Normal NEGATIVE [facility] Comment on above: Performed By: #### Tracey LYMAN UMICRO #### [facility] [address] [address] [address] Ashlie Hills Ketones Ql (U) Negative Normal NEGATIVE [facility] Comment on above: Performed By: #### Tracey LYMAN UMICRO #### [facility] [address] [place] [address] Dr. Ashlie Hills LEUKOCYTES Negative Normal NEGATIVE [facility] Comment on above: Performed By: #### E RUR, UMICRO #### [facility] [address] [place] [address] Dr. Ashlie Hills Nitrite Ql (U) Negative Normal NEGATIVE [facility] Comment on above: Performed By: #### E NURA, UMICRO #### [facility] [address] [place] [address] Dr. Ashlie Hills pH (U) 5.0 [pH] Normal 5-9 [facility] Comment on above: Performed By: #### E NURA, UMICRO #### [facility] [address] [place] [address] Dr. Ashlie Hills Protein (U) [Mass/Vol] 100 mg/dL Abnormal NEGAT YURY/ TRACE [facility] Comment on above: Performed By: #### Tracey LYMAN, UMICRO #### [facility] [address] [place] [address] Dr. Ashlie Hills SPEC GRAVITY >=1.030 Abnormal 1.005-<=1.025 [facility] Comment on above: Performed By: #### Tracey LYMAN, UMICRO #### [facility] [address] [place] [address] Dr. Ashlie Hills UR MICRO IND INDICATED Normal [facility] Comment on above: Performed By: #### Tracey LYMAN, UMICRO #### [facility] [address] [place] [address] Dr. Ashlie Hills Urobilinogen Qn (U) 1.0 {Little'U}/dL Normal 0.2 - 1. 0 [facility] Comment on above: Performed By: #### Tracey LYMAN, UMICRO #### [facility] [address] [place] [address] Dr. Ashlie Hills PROF CHEM 8 (BAS METB)on Anion gap [Moles/Vol] 12.1 mmol/L Normal [facility] Comment on above: Performed By: #### I NFLUAB #### [facility] [address] [place] [address] Dr. Ashlie Hills Calcium [Mass/Vol] 9.0 mg/dL Normal 8.5-10.1 [facility] Comment on above: Performed By: #### I NFLUAB #### [facility] [address] [address] [address] Ashlie Hills Chloride [Moles/Vol] 101 mmol/L Normal 98-107 [facility] Comment on above: Performed By: #### I NFLUAB #### [facility] [address] [address] [address] Ashlie Hills CO2 [Moles/Vol] 29.1 mmol/L Normal 21.0-32.0 [facility] Comment on above: Performed By: #### I NFLUAB #### [facility] [address] [place] [address] Dr. Ashlie Hills Creatinine [Mass/Vol] 0.86 mg/dL Normal 0.55-1.02 [facility] Comment on above: Performed By: #### I NFLUAB #### [facility] [address] [address] [address] Ashlie Hills EGFR-AF FIJIAN >60 Normal >=60 [facility] Comment on above: Performed By: #### I NFLUAB #### [facility] [address] [place] [address] Dr. Ashlie Hills EGFR-NON AF FIJIAN >60 Normal >=60 [facility] Comment on above: Performed By: #### I NFLUAB #### [facility] [address] [address] [address] Ashlie Hills Glucose [Mass/Vol] 236 mg/dL Critically high 74-106 [facility] Comment on above: Performed By: #### I NFLUAB #### [facility] [address] [address] [address] Ashlie Hills Potassium [Moles/Vol] 4.2 mmol/L Normal 3.5-5.1 [facility] Comment on above: Performed By: #### I NFLUAB #### [facility] [address] [address] [address] Ashlie Hills Sodium [Moles/Vol] 138 mmol/L Normal 136-145 [facility] Comment on above: Performed By: #### I NFLUAB #### [facility] [address] [place] [address] Dr. Ashlie Hills Urea nitrogen [Mass/Vol] 11.0 mg/dL Normal 7.0-18.0 [facility] Comment on above: Performed By: #### I NFLUAB #### [facility] [address] [place] [address] Dr. Ashlie Hills Urea nitrogen/Creatinine [Mass ratio] 12.8 mg/mg Normal [facility] Comment on above: Performed By: #### I NFLUAB #### [facility] [address] [place] [address] Dr. Ashile Hills URINE MICROSCOPIC ONLYon BACTERIA SMALL Abnormal NONE SEEN [facility] Comment on above: Performed By: #### E RUR, UMICRO #### [facility] [address] [place] [address] Dr. Ashlie Hills Bacteria identified Cx Nom (U) INDICATED Normal [facility] Comment on above: Performed By: #### E RUR, UMICRO #### [facility] [address] [place] [address] Dr. Ashlie Hills CAST NONE SEEN Normal NONE SEEN [facility] Comment on above: Performed By: #### E RUR, UMICRO #### [facility] [address] [place] [address] Dr. Ashlie Hills Crystals LM Nom (Urine sed) NONE SEEN Normal NONE SEEN [facility] Comment on above: Performed By: #### E RUR, UMICRO #### [facility] [address] [place] [address] Dr. Ashlie Hills Epithelial cells LM Ql (Urine sed) MODERATE Abnormal NONE SEEN /RARE [facility] Comment on above: Performed By: #### E RUR, UMICRO #### [facility] [address] [place] [address] Dr. Ashlie Hills MUCOUS NONE SEEN Normal NONE SEEN [facility] Comment on above: Performed By: #### E RUR, UMICRO #### [facility] [address] [address] [address] Ashlie Hills RBC 0-2 Normal 0-2 [facility] Comment on above: Performed By: #### E RUR UMICRO #### [facility] [address] [address] [address] Ashlie Hills WBC 0-2 Abnormal NONE SEEN [facility] Comment on above: Performed By: #### E RUR UMICRO #### [facility] [address] [address] [address] Ashlie Hills YEAST PRESENT Abnormal NONE SEEN [facility] Comment on above: Performed By: #### E NURA UMICRO #### [facility] [address] [address] [address] Ashlie Hills HIP RIGHT 1 OR 2 VWS WITH PE LVISon 07-20-2020 HIP RIGHT 1 OR 2 VWS WITH PELVIS [facility] Department of Radiology [address] [place] [id number] Patient Name: MITZI MACIAS : 1970 Sex: F Age: Race: White Pt. Location: Patient Status: O Ordered Date: 07/20/2020 1:45:00 PM Completed Date: 07/20/2020 01:57 PM Requesting Provider: LIZ EISENBERG Attending Provider: LIZ EISENBERG Report Copy To: MCKAYLA BLAS Signs & Symptoms: M25.551 Pain in right hip I10 History: Muse Comments: evaluate Exam: HIP RIGHT 1 OR [...] MRI. Electronically signed: Pipo Acevedo. Transcribed by: [email or web address], User Resident: Electronically Signed by: PIPO ACEVEDO @ 07/20/2020 03:45 PM Normal [facility] Comment on above: Order Comment: evalu ate Vital Signs Date Time Vital Sign Value Performing Clinician Facility 01-29-2025 09:48-0400 Body height 170.2 cm Rain Souza MD Work Phone: [facility] 01-29-2025 09:48-0400 Body mass index (BMI) [Ratio] 56.38 kg/m2 Rain Souza MD Work Phone: [facility] 01-29-2025 09:48-0400 Body weight 163.29 kg Rain Souza MD Work Phone: [facility] 01-29-2025 09:48-0400 Diastolic blood pressure 70 mm[Hg] Rain Souza MD Work Phone: [facility] 01-29-2025 09:48-0400 Heart rate 72 /min Rain Souza MD Work Phone: [facility] 01-29-2025 09:48-0400 Respiratory rate 16 /min Rain Souza MD Work Phone: [facility] 01-29-2025 09:48-0400 SaO2% (BldA) [Mass fraction] 84 % Rain Souza MD Work Phone: [facility] 01-29-2025 09:48-0400 Systolic blood pressure 130 mm[Hg] Rain Souza MD Work Phone: [facility] 01-26-2025 18:11-0400 Body mass index (BMI) [Ratio] 58.64 kg/m2 Mckayla Aichholz [employer] Work Phone: [facility] 01-26-2025 18:11-0400 Body temperature 98.49 [degF] Mckayla Aichholz [employer] M[employer] Work Phone: [facility] 01-26-2025 18:11-0400 Body weight 169.83 kg Mckayla Aichholz [employer] Work Phone: [facility] 01-26-2025 18:11-0400 Diastolic blood pressure 82 mm[Hg] Mckayla Aichholz [employer] Work Phone: [facility] 01-26-2025 18:11-0400 Heart rate 81 /min Mckayla Aichholz [employer] Work Phone: [facility] 01-26-2025 18:11-0400 Respiratory rate 20 /min Mckayla Aichholz [employer] Work Phone: [facility] 01-26-2025 18:11-0400 SaO2% (BldA) [Mass fraction] 90 % Mckayla Aichholz [employer] Work Phone: [facility] 01-26-2025 18:11-0400 Systolic blood pressure 126 mm[Hg] Mckayla Aichholz [employer] Work Phone: [facility] 12-09-2024 10:19-0400 Body temperature 98.01 [degF] Mckayla Aichholz [employer] Work Phone: [facility] 12-09-2024 10:19-0400 Diastolic blood pressure 76 mm[Hg] Mckayla Aichholz [employer] M[employer] Work Phone: [facility] 12-09-2024 10:19-0400 Heart rate 71 /min Mckayla Aichholz [employer] Work Phone: [facility] 12-09-2024 10:19-0400 Respiratory rate 20 /min Mckayla Aichholz [employer] Work Phone: [facility] 12-09-2024 10:19-0400 SaO2% (BldA) [Mass fraction] 88 % Mckaylajuvenal Rosenbergz [employer]ER Work Phone: [facility] 12-09-2024 10:19-0400 Systolic blood pressure 150 mm[Hg] Mckayla Juanjosehholz [employer]ER Work Phone: [facility] 10-27-2024 14:11-0400 Body height 170.2 cm Mckayla Juanjosehholz [employer]ER Work Phone: [facility] 10-27-2024 14:11-0400 Body mass index (BMI) [Ratio] 56.51 kg/m2 Mckayla Juanjosehholz [employer]ER Work Phone: [facility] 10-27-2024 14:11-0400 Body temperature 98.71 [degF] Mckayla Juanjosehholz [employer] M[employer]ER Work Phone: [facility] 10-27-2024 14:11-0400 Body weight 163.66 kg Mckayla Juanjosehholz [employer]ER Work Phone: [facility] 10-27-2024 14:11-0400 Diastolic blood pressure 74 mm[Hg] Mckayla Juanjosehholz [employer] M[employer]ER Work Phone: [facility] 10-27-2024 14:11-0400 Heart rate 75 /min Mckayla Aichholz [employer] M[employer]ER Work Phone: [facility] 10-27-2024 14:11-0400 Respiratory rate 18 /min Mckayla Juanjosehholz [employer]ER Work Phone: [facility] 10-27-2024 14:11-0400 SaO2% (BldA) [Mass fraction] 90 % Mckayla Juanjosehholz [employer] M[employer]ER Work Phone: [facility] 10-27-2024 14:11-0400 Systolic blood pressure 132 mm[Hg] Mckayla Aichholz [employer] Work Phone: [facility] 10-08-2024 11:21-0400 Body height 170.2 cm Rain Souza MD Work Phone: [facility] 10-08-2024 11:21-0400 Body mass index (BMI) [Ratio] 55.91 kg/m2 Rain Souza MD Work Phone: [facility] 10-08-2024 11:21-0400 Body weight 161.93 kg Rain Souza MD Work Phone: [facility] 10-08-2024 11:21-0400 Diastolic blood pressure 70 mm[Hg] Rain Souza MD Work Phone: [facility] 10-08-2024 11:21-0400 Heart rate 70 /min Rain Souza MD Work Phone: [facility] 10-08-2024 11:21-0400 Respiratory rate 16 /min Rain Souza MD Work Phone: [facility] 10-08-2024 11:21-0400 SaO2% (BldA) [Mass fraction] 91 % Rain Souza MD Work Phone: [facility] 10-08-2024 11:21-0400 Systolic blood pressure 130 mm[Hg] Rain Souza MD Work Phone: [facility] 08-27-2024 17:44-0500 Body mass index (BMI) [Ratio] 57.31 kg/m2 Mckayla Blas [employer] Work Phone: [facility] 08-27-2024 17:44-0500 Body temperature 98.01 [degF] Mckayla Blas [employer] Work Phone: [facility] 08-27-2024 17:44-0500 Body weight 165.97 kg Mckayla Blas [employer] Work Phone: [facility] 08-27-2024 17:44-0500 Diastolic blood pressure 76 mm[Hg] Mckayla Blas [employer] Work Phone: [facility] 08-27-2024 17:44-0500 Heart rate 83 /min Mckayla Blas [employer] Work Phone: [facility] 08-27-2024 17:44-0500 Respiratory rate 18 /min Mckayla Patriciamariyatalia [employer] Work Phone: [facility] 08-27-2024 17:44-0500 SaO2% (BldA) [Mass fraction] 91 % Mckayla Patriciajodie [employer] Work Phone: [facility] 08-27-2024 17:44-0500 Systolic blood pressure 134 mm[Hg] Mckayla Patriciajodie [employer] Work Phone: [facility] 06-11-2024 10:00-0500 Blood Pressure Location Elbert ARAUZ [facility] 06-11-2024 10:00-0500 Diastolic blood pressure 68 mm[Hg] Elbert ARAUZ [facility] 06-11-2024 10:00-0500 Heart rate 76 /min Elebrt ARAUZ [facility] 06-11-2024 10:00-0500 Systolic blood pressure 132 mm[Hg] Elbert ARAUZ [facility] 05-27-2024 10:20-0500 Body height 170.2 cm Rain Souza MD Work Phone: [facility] 05-27-2024 10:20-0500 Body mass index (BMI) [Ratio] 56.7 kg/m2 Rain Souza MD Work Phone: [facility] 05-27-2024 10:20-0500 Body weight 164.2 kg Rain Souza MD Work Phone: [facility] 05-27-2024 10:20-0500 Diastolic blood pressure 66 mm[Hg] Rain Souza MD Work Phone: [facility] 05-27-2024 10:20-0500 Heart rate 72 /min Rain Souza MD Work Phone: [facility] 05-27-2024 10:20-0500 Respiratory rate 16 /min Rain Souza MD Work Phone: [facility] 05-27-2024 10:20-0500 Systolic blood pressure 128 mm[Hg] Rain Souza MD Work Phone: [facility] 04-14-2024 10:27-0400 Body height 165.1 cm Mckayla Aichholz [employer] Work Phone: [facility] 04-14-2024 10:27-0400 Body mass index (BMI) [Ratio] 61.01 kg/m2 Mckayla Aichholz [employer] Work Phone: [facility] 04-14-2024 10:27-0400 Body temperature 98.49 [degF] Mckayla Aichholz [employer] Work Phone: [facility] 04-14-2024 10:27-0400 Body weight 166.29 kg Mckayla Aichholz [employer] Work Phone: [facility] 04-14-2024 10:27-0400 Diastolic blood pressure 80 mm[Hg] Mckayla Aichholz [employer] Work Phone: [facility] 04-14-2024 10:27-0400 Heart rate 77 /min Mckayla Aichholz [employer] Work Phone: [facility] 04-14-2024 10:27-0400 Respiratory rate 19 /min Mckayla Aichholz [employer] Work Phone: [facility] 04-14-2024 10:27-0400 SaO2% (BldA) [Mass fraction] 92 % Mckayla Aichholz [employer] Work Phone: [facility] 04-14-2024 10:27-0400 Systolic blood pressure 116 mm[Hg] Mckayla Aichholz [employer]ER Work Phone: [facility] 03-08-2022 15:00-0400 Body height 170.18 cm Stephanie Tico Other [employer] Other 03-08-2022 15:00-0400 Body temperature 97.6 [degF] Stephanie Tico Other [employer] Other 03-08-2022 15:00-0400 Diastolic blood pressure 72 mm[Hg] Stephanie Tico Other [employer] Other 03-08-2022 15:00-0400 Respiratory rate 20 /min Stephanie Tico Other [employer] Other 03-08-2022 15:00-0400 SaO2% (BldA) [Mass fraction] 91 % Stephanie Tico Other [employer] Other 03-08-2022 15:00-0400 Systolic blood pressure 131 mm[Hg] Stephanie Tico Other [employer] Other 02-20-2022 09:20-0400 Body height 170.18 cm Stephanie Tico Other [employer] Other 02-20-2022 09:20-0400 Body temperature 96.5 [degF] Stephanie Tico Other [employer] Other 02-20-2022 09:20-0400 Diastolic blood pressure 69 mm[Hg] Stephanie Tico Other [employer] Other 02-20-2022 09:20-0400 Respiratory rate 20 /min Stephanie Tico Other [employer] Other 02-20-2022 09:20-0400 SaO2% (BldA) [Mass fraction] 91 % Stephanie Tico Other [employer] Other 02-20-2022 09:20-0400 Systolic blood pressure 129 mm[Hg] Stephanie Tico Other [employer] Other 02-06-2022 10:24-0400 Blood Pressure Location Elbert Image Searcher [facility] [place] 02-06-2022 10:24-0400 Diastolic blood pressure 76 mm[Hg] Elbert ARAUZ [facility] 02-06-2022 10:24-0400 Heart rate 70 /min [facility] 02-06-2022 10:24-0400 Respiratory rate 16 /min [facility] 02-06-2022 10:24-0400 Systolic blood pressure 134 mm[Hg] Elbert ARAUZ [facility] Encounters Encounter Date Encounter Type Care Provider Facility Start: 04-17-2025 ambulatory Omero Nas Negrita use [employer] SALES ENGINEER Facility:[facility] Start: 03-24-2025 ambulatory Corinne Kellogg MD Facility:[facility] Start: 03-23-2025 End: 03-23-2025 ambulatory Omero Nas Bob [employer]TECHNICAL SALES ENGINEER Facility:[facility] Start: 03-11-2025 End: 03-11-2025 ambulatory Flynn Urias DPM Facility:[facility] Start: 03-09-2025 End: 03-09-2025 Refill Mckayla Blas NP Work Phone: [facility] Comment on above: Tobacco user; Encounter for smoking cessation counseling Start: 01-29-2025 End: 01-29-2025 Bamboo flowsheet Rain Souza MD Work Phone: [facility] Start: 01-29-2025 End: 01-29-2025 Bamboo flowsheet Rain Souza MD Work Phone: [facility] Start: 01-29-2025 End: 01-29-2025 Clinisync Result Encounter Generic External Data Provider [facility] External Department Unsolicited Start: 01-29-2025 End: 01-29-2025 ambulatory RAIN SOUZA Not Available Start: 01-29-2025 End: 01-29-2025 Office outpatient visit 25 minutes Rain Souza MD Work Phone: [facility] Comment on above: Encounter for [...] (BMI) of 50.0 to 59.9 in adult ([facility]) Start: 01-26-2025 End: 01-26-2025 ambulatory MCKAYLA BLAS Not Available Start: 01-26-2025 End: 01-26-2025 Patient encounter procedure Mckayla Blas NP Work Phone: [facility] Comment on above: Encounter for subseq [...] (CMS-HCC) Start: 01-06-2025 End: 01-06-2025 ambulatory [facility] Start: 12-18-2024 End: 12-19-2024 Refill Mckayla Blas [employer] Work Phone: [facility] Comment on above: Hyperlipidemia, unsp ecified ; Tobacco user; Encounter for smoking cessation counseling Start: 12-09-2024 End: 12-09-2024 Bamboo flowsheet Mckayla Blas [employer] Work Phone: [facility] Start: 12-09-2024 End: 12-09-2024 Bamboo flowsheet Mckayla Blas [employer] Work Phone: [facility] Start: 12-09-2024 End: 12-09-2024 ambulatory MCKAYLA BLAS Not Available Start: 12-09-2024 End: 12-09-2024 Office outpatient visit 25 minutes Mckayla Blas [employer] Work Phone: [facility] Comment on above: Cellulitis of [...] minutes Mckayla Blas NP Work Phone: [facility] Comment on above: Primary hypertension ([facility]/HCC) (Primary Dx); Diabetic polyneuropathy associated with type 2 diabetes mellitus ([facility]); Chronic diastolic heart failure ([facility]); Bilateral lower extremity edema; Morbid (severe) obesity due to excess calories ([facility]); Type 2 diabetes mellitus with complication, with long-term current use of insulin ([facility]); Anxiety and depression ([facility]); Cigarette nicotine dependence without complication; Encounter for screening mammogram for malignant neoplasm of breast; Insomnia; Non-seasonal allergic rhinitis, unspecified trigger; Type 2 diabetes mellitus with unspecified complications; Vitamin D deficiency, unspecified; Gastro-esophageal reflux disease without esophagitis; PAD (peripheral artery disease) ([facility]); Gastroesophageal reflux disease, unspecified whether esophagitis present; Venous ulcer of right leg ([facility]) Start: 10-21-2024 End: 10-21-2024 Refill Mckayla Blas NP [facility] Comment on above: Chronic obstructive pulmonary disease, unspecified Start: 10-08-2024 End: 10-08-2024 Clinisync Result Encounter Mckayla Blas NP Work Phone: [facility] External Department Unsolicited Start: 10-08-2024 End: 10-08-2024 Clinisync Result Encounter Mckayla Blas [employer] Work Phone: [facility] External Department Unsolicited Start: 10-08-2024 End: 10-08-2024 Office outpatient visit 25 minutes Rain Souza MD [facility] Comment on above: Type 2 diabetes asiya itus with hyperglycemia, with long-term current use of insulin ([facility]) (Primary Dx); Encounter for dietary consultation; Vitamin D deficiency; Primary hypertension ([facility]); Insulin long-term use (CMS/HCC); [...] Start: 08-08-2024 End: 08-08-2024 ambulatory [facility] Start: 07-17-2024 End: 07-17-2024 Refill Mckayla Blas [employer] Work Phone: [facility] Start: 07-14-2024 End: 07-14-2024 Office outpatient visit 25 minutes Mckayla Blas [employer] Work Phone: [facility] Comment on above: Primary hypertension [...] complication, with long-term current use of insulin ([facility]); Tobacco user; Encounter for smoking cessation counseling; Kidney stone; Adrenal mass 1 cm to 4 cm in diameter ([facility]); Radiculopathy, lumbar region; Non-seasonal allergic rhinitis, unspecified trigger; Type 2 diabetes mellitus with unspecified complications ([facility]/HCC) Start: 07-14-2024 End: 07-14-2024 ambulatory MCKAYLA BLAS Not Available Start: 07-05-2024 End: 07-07-2024 Refill Mckayla Blas [employer] Work Phone: [facility] Comment on above: Bilateral lower extr emity edema Start: 06-11-2024 ambulatory Elbert Maysi ty:SHEA Mckee Start: 06-11-2024 End: 06-11-2024 Patient encounter procedure Elbert ARAUZ [facility] [place] Start: 05-27-2024 End: 05-27-2024 Bamboo flowsheet Rain Souza MD Work Phone: [facility] Start: 05-27-2024 End: 05-27-2024 Bamboo flowsheet Rain Souza MD Work Phone: [facility] Start: 05-27-2024 End: 05-27-2024 ambulatory [...] 04-14-2024 End: 04-14-2024 Bamboo flowsheet Mckayla Blas [employer] Work Phone: [facility] Start: 04-14-2024 End: 04-14-2024 Bamboo flowsheet Mckayla Blas [employer] Work Phone: [facility] Start: 04-14-2024 End: 04-14-2024 Office outpatient visit 25 minutes Mckayla Blas NP Work Phone: [facility] Comment on above: Primary hypertension (CMS/HCC) (Primary Dx); Insomnia; Type 2 diabetes mellitus with complication, with long-term current use of insulin ([facility]); Non-seasonal allergic rhinitis, unspecified [...] Start: 04-05-2024 End: 04-06-2024 Refill Mckayla Aichholz [employer] Work Phone: [facility] Comment on above: Hyperlipidemia, unsp ecified (CMS/HCC); Bilateral lower extremity edema Vitamin D deficiency , unspecified Start: 01-17-2024 Patient encounter procedure Rain Souza MD Work Phone: [facility] Start: 08-17-2023 Refill Mckayla Aichholz [employer] Work Phone: [facility] Comment on above: Vaginal yeast infect ion (Primary Dx) Start: 08-14-2023 Refill Mckayla Aichholz [employer] Work Phone: [facility] Comment on above: Type 2 diabetes asiya itus with unspecified complications (CMS/HCC); Edema, unspecified; Edema Start: 12-05-2022 ambulatory MATEUSZ NICHOLEMIPATHY . Facility:[facility] Start: 12-05-2022 End: 12-06-2022 Evaluation and management of inpatient UMBERTO ALONDRA . Facility:[facility] Start: 11-23-2022 End: 11-23-2022 ambulatory TECHNICAL SALES ENGINEER MCKAYLA JUANJOSECayetanoJODIE Facility:[facility] Start: 11-22-2022 End: 11-23-2022 ambulatory TECHNICAL SALES ENGINEER MCKAYLA AICCayetanoJODIE Facility:[facility] Start: 11-17-2022 End: 11-18-2022 ambulatory SUBHASH GASPAR . Facility:[facility] Start: 11-15-2022 End: 11-15-2022 Patient encounter procedure SARAH VEGA [facility] Start: 10-05-2022 End: 10-05-2022 ambulatory MARIANO DIAB . Facility:[facility] Start: 09-21-2022 End: 09-21-2022 ambulatory TECHNICAL SALES ENGINEER MCKAYLA AICCayetanoMARIYAZ Facility:[facility] Start: 09-14-2022 ambulatory RAFAEL Ribera y:[facility] Start: 08-24-2022 End: [address] CHAPARRO MORTENSEN . Facility:[facility] Start: 08-21-2022 End: 08-22-2022 ambulatory HATTIE Ramsey [facility] Facility:[facility] Start: 07-27-2022 End: 07-28-2022 ambulatory CECILIA NIRMALATray . Facility:[facility] Start: 07-18-2022 End: 07-19-2022 ambulatory CECILIA BJORNRUCHI . Facility:[facility] Start: 07-18-2022 End: 07-19-2022 ambulatory HATTIE Ramsey [facility] Facility:[facility] Start: 07-06-2022 End: 07-06-2022 ambulatory SAYDA BLAS Facility:[facility] Start: 05-11-2022 End: 05-12-2022 ambulatory GIL VALENZUELA . Facility:[facility] Start: 04-25-2022 End: 04-25-[address] CHAPARRO MORTENSEN . Facility:[facility] Start: 04-20-2022 End: 04-21-2022 ambulatory GIL VALENZUELA . Facility:[facility] Start: 03-08-2022 End: 03-08-2022 ambulatory Stephanie Tico Other [employer] Other Start: 03-08-2022 Office outpatient vi sit 15 minutes Stephanie Tico [facility] Start: 03-03-2022 End: 03-04-2022 ambulatory SAYDA BLAS Facility:[facility] Start: 02-20-2022 End: 02-20-2022 ambulatory Stephanie Tico Other [employer] Other Start: 02-20-2022 Office outpatient ne w 45 minutes Stephanie Tico [facility] Start: 02-06-2022 End: 02-06-2022 Patient encounter procedure Elbert ARAUZ [facility] Start: 01-19-2022 End: 01-20-2022 ambulatory GIL VALENZUELA . Facility:[facility] Start: 12-24-2021 End: 12-24-2021 ambulatory OLE RAMIREZ Facility: Start: 08-26-2020 End: 09-10-2020 Patient encounter procedure MARY TAVERAS Facility:[facility] Start: 10-30-2019 End: 10-30-2019 Emergency department patient visit JAMES BENAVIDEZ [facility] Start: 10-30-2019 End: 10-30-2019 Emergency department patient visit James Benavidez [facility] Emergency Department Start: 11-02-2016 Preoperative state Stephanie Tico Other [employer] Other Procedures Date Procedure Procedure Detail Performing [...] Rain Souza MD Work Phone: Start: 10-08-2024 [facility] UA (CLEAN/CATCH) MICROSCOPIC IF INDICATE Mckayla Blas [employer] Work Phone: Start: 08-27-2024 ALL CBC WITH AUTO DIFF Generic External Data Provider Start: 05-27-2024 Gluc bld gluc mntr d ev cleared fda spec home use Rain Souza MD Work Phone: Start: 05-12-2024 [facility] CREATININE Generic External Data Provider Start: 12-14-2023 Mammography Rain urena MD Work Phone: Start: 11-22-2022 Mammography Mckayla clifford [employer] Work Phone: Start: 10-08-2015 Microscopic observat ion [...] Annual Wellness (AWV) [facility] Start: 10-08-2025 Urine screening for protein Diabetes: Urine Protein Screening [facility] Start: 08-03-2025 Screening for malignant neoplasm of colon [facility] Start: 07-14-2025 Glaucoma screening Diabetes: R etinopathy Screening [facility] Start: 05-28-2025 End: 05-28-2025 Patient encounter procedure [facility] Start: 05-13-2025 Glaucoma screening Diabetes: R etinopathy Screening [facility] Start: 05-01-2025 Hemoglobin A1c measurement Diabetes: Hemoglobin A1C [facility] Start: 04-29-2025 End: 04-29-2025 Patient encounter procedure [facility] Start: 03-09-2025 Influenza vaccination [facility] Start: 01-28-2025 End: 01-28-2025 Patient encounter procedure 01/28/2025 10:50 AM EDT Office Visit [facility] [address] [place] [address] Rain Souza MD [address] [place] [address] [facility] Start: 01-26-2025 End: 01-26-2025 Patient encounter procedure 01/26/2025 6:00 PM EDT Office Visit [facility] [address] [place] [phone] Mckayla Blas NP [address] [place] [phone] [facility] Start: 01-16-2025 Medicare Annual Wellness (AWV) Medicare Annual Wellness (AWV) [facility] Start: 01-07-2025 Hemoglobin A1c measurement Diabetes: Hemoglobin A1C [facility] Start: 12-15-2024 End: 12-27-2025 MG Breast - bilateral Screening Bilateral screening mammogram Imaging Routine Encounter for screening mammogram for malignant neoplasm of breast Expected: 12/15/2024 (Approximate), Expires: 12/27/2025 [facility] Work Phone: Comment on above: Expected: 12/15/2024 (Approximate), Expires: 12/27/2025 Start: 12-13-2024 Screening for malignant neoplasm of breast Mammogram [facility] Start: 11-11-2024 Urine screening for protein Diabetes: Urine Protein Screening [facility] Start: 10-27-2024 End: 10-27-2024 Patient encounter procedure 10/27/2024 2:00 PM EDT Office Visit [facility] [address] [place] [phone] Mckayla Blas NP [address] [place] [phone] [facility] Start: 10-08-2024 End: 10-08-2024 Patient encounter procedure 10/08/2024 11:20 AM EDT Office Visit [facility] [address] [place] [address] Rain Souza MD [address] [place] [address] [facility] Start: 08-27-2024 End: 08-27-2024 Patient encounter procedure 08/27/2024 5:30 PM EST Office Visit [facility] [address] [place] [phone] Mckayla Blas NP [address] [place] [phone] [facility] Start: 08-27-2024 End: 08-27-2025 25-hydroxyvitamin D3 [Mass/volume] in Serum or Plasma Vitamin D 25 hydroxy Lab Routine Vitamin deficiency Expected: 08/27/2024 (Approximate), Expires: 08/27/2025 [facility] Comment on above: Expected: 08/27/2024 (Approximate), Expires: 08/27/2025 Start: 08-27-2024 Hemoglobin A1c measurement Diabetes: Hemoglobin A1C [facility] Start: 08-27-2024 End: 08-27-2025 Hepatic function 2000 panel - Serum or Plasma Hepatic function panel Lab Routine Hyperlipidemia, unspecified (CMS/HCC) Expected: 08/27/2024 (Approximate), Expires: 08/27/2025 [facility] Comment on above: Expected: 08/27/2024 (Approximate), Expires: 08/27/2025 Start: 08-27-2024 End: 08-27-2025 Lipid 1996 panel - Serum or Plasma Lipid panel Lab Routine Mixed hyperlipidemia (CMS/HCC) Expected: 08/27/2024 (Approximate), Expires: 08/27/2025 [facility] Work Phone: Comment on above: Expected: 08/27/2024 (Approximate), Expires: 08/27/2025 Start: 08-27-2024 End: 08-27-2025 Microalbumin/Creatini ne panel in random Urine Microalbumin / creatinine, urine ratio Lab Routine Primary hypertension (CMS/HCC) Type 2 diabetes mellitus with complication, with long-term current use of insulin ([facility]) Expected: 08/27/2024 (Approximate), Expires: 08/27/2025 [facility] Comment on above: Expected: 08/27/2024 (Approximate), Expires: 08/27/2025 Start: 08-27-2024 End: 08-27-2025 Urate [Mass/volume] in Serum or Plasma Uric acid Lab Routine Gout, unspecified cause, unspecified chronicity, unspecified site Expected: 08/27/2024 (Approximate), Expires: 08/27/2025 [facility] Comment on above: Expected: 08/27/2024 (Approximate), Expires: 08/27/2025 Start: 08-27-2024 End: 08-27-2025 Urinalysis complete panel - Urine Urinalysis with reflex microscopic (clean catch) Lab Routine Primary hypertension ([facility]) Type 2 diabetes mellitus with complication, with long-term current use of insulin ([facility]) Tobacco user Gout, unspecified cause, unspecified chronicity, unspecified site Expected: 08/27/2024 (Approximate), Expires: 08/27/2025 [facility] Comment on above: Expected: 08/27/2024 (Approximate), Expires: 08/27/2025 Start: 08-26-2024 End: 08-26-2024 Patient encounter procedure 08/26/2024 10:30 AM EST Office Visit [facility] [address] [place] [address] Rain Souza MD [address] [place] [address] [facility] Start: 07-14-2024 End: 07-14-2024 Patient encounter procedure 07/14/2024 6:30 PM EST Office Visit [facility] [address] [place] [address] Mckayla Blas NP [address] [place] [address] [facility] Start: 07-14-2024 End: 07-14-2024 Patient encounter procedure 07/14/2024 10:10 AM EST Office Visit [facility] [address] [place] [address] Rain Souza MD [address] [place] [address] [facility] Start: 06-06-2024 Influenza vaccination Influenza Vacc ine (#1) [facility] Comment on above: Postponed from 03/09 (Patient Refused) Start: 05-27-2024 End: 05-27-2024 Patient encounter procedure 05/27/2024 9:50 AM EST Office Visit [facility] [address] [place] [address] Rain Souza MD [address] [place] [address] [facility] Start: 05-17-2024 Hemoglobin A1c measurement Diabetes: Hemoglobin A1C [facility] Start: 05-15-2024 End: 05-15-2024 Chart abstracting 05/15/2024 Abstract [facility] [address] [place] [address] Rain Souza MD [address] [place] [address] [facility] Start: 05-15-2024 End: 05-15-2024 Patient encounter procedure 05/15/2024 11:20 AM EST Office Visit [facility] [address] [place] [address] Rain Souza MD [address] [place] [address] [facility] Start: 04-17-2024 End: 04-17-2024 Patient encounter procedure 04/17/2024 3:40 PM EDT Office Visit [facility] [address] [place] [address] Mckayla Blas NP [address] [place] [address] [facility] Start: 04-14-2024 End: 04-14-2024 Patient encounter procedure 04/14/2024 11:00 AM EDT Office Visit [facility] [address] [place] [phone] Mckayla Blas, [employer] [address] [place] [phone] Arrived [facility] Comment on above: Arrived Start: 03-09-2024 Influenza vaccination Influenza Vacc ine (#1) [facility] Start: 02-19-2024 Hemoglobin A1c measurement Diabetes: Hemoglobin A1C [facility] Start: 11-24-2023 Urine screening for protein Diabetes: Urine Protein Screening [facility] Start: 11-23-2023 Screening for malignant neoplasm of breast Mammogram [facility] Start: 10-15-2023 End: 10-15-2023 Patient encounter procedure 10/15/2023 4:30 PM EDT Office Visit [facility] [address] [place] [phone] Mckayla Blas NP [address] [place] [phone] [facility] Start: 08-09-2023 Hemoglobin A1c measurement Diabetes: Hemoglobin A1C [facility] Start: 05-27-2021 Glaucoma screening Diabetes: R etinopathy Screening [facility] Start: 03-09-2020 Influenza vaccination Flu vacc ine (Season Ended) [place] Start: 10-07-2018 Screening for malignant neoplasm of cervix [facility] Start: 2010 Lipid panel Lipid screen [place], [place] Start: 2000 Screening for malignant neoplasm of cervix HPV/Cotest [facility] Start: 1991 Screening for malignant neoplasm of cervix Cervical cancer screen [place], [place] Start: 1989 DTaP/Tdap/Td vaccine (1 - Tdap) DTaP/Tdap/Td vaccine (1 - Tdap) [place] Start: 1985 HIV screening HIV screen [place], [place] Start: 1970 Medicare Annual Wellness (AWV) Medicare Annual Wellness (AWV) [facility] Start: 1970 Screening for malignant neoplasm of colon [facility] BLOOD CULTURE 1 BLOOD CULTURE 1 Lab Routine 12/04/2024 4:44 PM EDT [facility] BLOOD CULTURE 2 BLOOD CULTURE 2 Lab Routine 12/04/2024 5:28 PM EDT [facility] Immunizations Immunization Date Immunization Notes Care Provider Judie lucas 05-18-2023 influenza, injectabl e, quadrivalent, contains preservative Mckayla Blas NP Work Phone: [facility] 05-18-2023 influenza virus vacc ine, unspecified formulation Rain Souza MD Work Phone: [facility] 07-19-2021 SARS-CoV-2 (COVID-19 ) mRNA BNT-162b2 vax [employer] [facility] 10-28-2020 SARS-CoV-2 (COVID-19 ) mRNA BNT-162b2 vax [employer] [facility] 10-08-2020 SARS-CoV-2 (COVID-19 ) mRNA BNT-162b2 vax [employer] [facility] 04-16-2017 influenza virus vacc ine, H5N1, A/ (national stockpile) Mckayla Blas [employer] Work Phone: [facility] 04-16-2017 influenza virus vacc ine, unspecified formulation Rain Souza MD Work Phone: [facility] 04-16-2017 influenza, unspecifi ed formulation Elbert REGLA [facility] 04-16-2017 pneumococcal polysaccharide vaccine, 23 valent Rain Souza MD Work Phone: [facility] 05-10-2016 influenza virus vacc ine, H5N1, A/ (national stockpile) Mckayla Blas NP Work Phone: [facility] 05-10-2016 influenza virus vacc ine, unspecified formulation Rain Souza MD Work Phone: [facility] 05-10-2016 influenza, unspecifi ed formulation Elbert ARAUZ [facility] 05-02-2013 influenza virus vacc ine, whole virus Rain Souza MD Work Phone: [facility] 05-02-2013 influenza, injectabl e, quadrivalent, contains preservative Mckayla Wan [employer] Work Phone: [facility] 05-02-2013 influenza, whole Elbert BARBARA ERS [facility] 01-29-1998 measles, mumps and rubella virus vaccine Rain Souza MD Work Phone: [facility] Payers Date Payer Category Payer Unknown [id number] 2023 Medicare (Managed Care) 1.2. [id number] 2023 Private Health Insurance [id number] 2023 Medicare [id number] 2018 Medicaid MEDICAID [facility] [id number] 2018-Present [phone] [place] [address] Medicaid [id number] 2013 Medicare [id number] .[id number] 1970 Unknown [id number] 2.16.840.1.896947.3.579.2.6 47 1970 Unknown [id number] 2.16.840.1.645756.3.579.2.5 93 1970 Unknown [id number] 2.16.840.1.100527.3.579.2.5 93 1970 Unknown [id number] 2.16.840.1.072529.3.579.2.5 93 1970 Unknown [id number] 2.16.840.1.058206.3.579.2.5 93 1970 Unknown [id number] 2.16.840.1.416484.3.579.2.5 93 1970 Unknown [id number] 2.16.840.1.522290.3.579.2.5 93 1970 Unknown [id number] 2.16.840.1.451194.3.579.2.5 93 1970 Unknown [id number] 2.16.840.1.949064.3.579.2.5 93 1970 Unknown [id number] 2.16.840.1.319469.3.579.2.5 93 1970 Unknown [id number] 2.16.840.1.492386.3.579.2.5 93 1970 Unknown [id number] 2.16.840.1.734361.3.579.2.5 93 1970 Unknown [id number] 2.16.840.1.886351.3.579.2.5 93 1970 Unknown [id number] 2.16.840.1.766583.3.579.2.5 93 1970 Unknown [id number] 2.16.840.1.003840.3.579.2.5 93 1970 Unknown [id number] 2.16.840.1.361826.3.579.2.5 93 1970 Unknown [id number] 2.16.840.1.177615.3.579.2.5 93 1970 Unknown [id number] 2.16.840.1.908983.3.579.2.5 93 1970 Unknown [id number] 2.16.840.1.244524.3.579.2.5 93 1970 Unknown [id number] 2.16.840.1.645177.3.579.2.5 93 1970 Unknown [id number] 2.16.840.1.979202.3.579.2.5 93 1970 Unknown [id number] 2.16.840.1.398026.3.579.2.5 93 1970 Unknown [id number] 2.16.840.1.028038.3.579.2.5 93 1970 Unknown [id number] 2.16.840.1.722779.3.579.2.7 27 1970 Unknown [id number] 2.16.840.1.799707.3.579.2.7 27 1970 Unknown [id number] 2.16.840.1.058822.3.579.2.1 259 1970 Unknown [id number] 2.16.840.1.635774.3.579.2.1 259 1970 Unknown [id number] 2.16.840.1.685907.3.579.2.1 259 1970 Unknown [id number] 2.16.840.1.142211.3.579.2.1 259 1970 Unknown [id number] 2.16.840.1.917040.3.579.2.1 259 1970 Unknown [id number] 2.16.840.1.157522.3.579.2.1 259 1970 Unknown [id number] 2.16.840.1.390032.3.579.2.1 259 1970 Unknown [id number] 2.16.840.1.682338.3.579.2.1 259 1970 Unknown [id number] 2.16.840.1.948980.3.579.2.1 259 1970 Unknown [id number] 2.16.840.1.925540.3.579.2.1 96 1970 Unknown [id number] 2.16.840.1.870461.3.579.2.1 96 1970 Unknown [id number] 2.16.840.1.834565.3.579.2.1 96 1970 Unknown [id number] 2.16.840.1.542847.3.579.2.1 96 1970 Unknown [id number] 2.16.840.1.795623.3.579.2.1 96 1970 Unknown [id number] 2.16.840.1.932356.3.579.2.1 96 1959 Medicaid [id number] 1959 Private Health Insurance [id number] 1959 Unknown [id number] 2.16.840.1.823481.19 Social History Date Type Detail Facility Start: 02-17-2014 End: 01-29-2025 Tobacco smoking status NHIS Current every day smoker [place] Start: 02-17-1994 History of tobacco use Cigarette Smo ker [place] Start: 02-17-2014 End: 08-26-2024 Cigarettes smoked current (pack per day) - Reported [place] Start: 02-17-2014 Alcohol intake Current drinke r of alcohol (finding) [place] Start: 02-17-2014 Alcohol Comment Rare [place], [place] Start: 1970 Sex Assigned At Not on file [place] Exposure to SARS-CoV -2 (event) Unable to assess [place] Start: 02-06-2022 Tobacco smoking status Smoker (findi ng) [facility] Start: 07-10-2023 End: 08-26-2024 Sex Assigned At Female [facility] Start: 11-15-2022 End: 06-11-2024 Tobacco smoking status Heavy tobacco smoker (finding) [facility] Start: 07-10-2023 End: 01-29-2025 Tobacco use and exposure Smokeless tobacco non-user [facility] Start: 07-10-2023 End: 01-29-2025 Alcohol intake Lifetime non-drinker (finding) [facility] Within the last year , have you been afraid of your partner or ex-partner? No [facility] Do you belong to any clubs or organizations such as hinduism groups, unions, fraternal [...] Equipment Origin al Text Equipment Identifier Dates [id number] Start: 01-18-2024 USE TO TEST BLOO D SUGAR 4 TIMES DAILY [id number] Start: 07-07-2024 Functional Status Date Assessment Result Facility 01-26-2025 Patient Health Quest ionnaire 2 item (PHQ-2) [Reported] [facility] 01-26-2025 Trouble falling or s taying asleep, or sleeping too much Not at all 01/26/2025 4:13 PM EDT Mychart, Generic Not at all [facility] 01-26-2025 Feeling tired or hav ing little energy Not at all 01/26/2025 4:13 PM EDT Mychart, Generic Not at all [facility] 01-26-2025 Poor appetite or overeating Not at all 01/26/2025 4:13 PM EDT Mychart, Generic Not at all [facility] 01-26-2025 Feeling bad about yourself-or that you are a failure or have let yourself or your family down Not at all 01/26/2025 4:13 PM EDT Mychart, Generic Not at all [facility] 01-26-2025 Trouble concentratin g on things, such as reading the newspaper or watching television Not at all 01/26/2025 4:13 PM EDT Mychart, Generic Not at all [facility] 01-26-2025 Moving or speaking s o slowly that other people could have noticed. Or the opposite - being so fidgety or restless that you have been moving around a lot more than usual Not at all 01/26/2025 4:13 PM EDT Mychart, Generic Not at all [facility] 01-26-2025 Thoughts that you wo uld be better off , or of hurting yourself in some way Not at all 01/26/2025 4:13 PM EDT Mychart, Generic Not at all [facility] 06-11-2024 Functional Status N/A [facility] 11-15-2022 Functional Status N/A [facility] 02-06-2022 Functional Status N/A [facility] Clinical Notes 01-19-2022 to 02-04-2025 Rain Souza MD - 01/29/2025 9:40 AM Savannah Blas NP - 01/26/2025 6:46 PM Savannah Blas NP - 01/26/2025 6:46 PM EDMicheal Sowcayetanomariyatalia, [employer] - 01/26/2025 6:46 PM EDTPatient Instructions Note Date & Type Note Facility 02-04-2025 Note Please let her know her ECHO showed some improvement in the left side wall thickness, it was severely enlarged, now it is moderate. Important for good BP control to continue to improve this. Everything else looks good. Follow-up as planned in 6 months. Thanks! 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 ([facility]) Lower extremity edema 09/17/2023 Mixed hyperlipidemia Morbid (severe) obesity due to excess calories ([facility]) Obstructive sleep apnea 07/10/2023 PAD (peripheral artery disease) 09/17/2023 Pancreatitis ([facility]) 09/17/2023 Pneumonia 09/17/2023 Proteinuria, unspecified [...] [facility]) Current meds: albuterol, duoneb, 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 Hypertension Please check blood [...] Pulmonary hypertension ([facility]) Has seen [facility] Cardiology Hyperlipidemia [...] Morbid (severe) obesity due to excess calories ([facility]) Discussed with patient their BMI (actual, [...] a yearly basis documented in this encounter [facility] 01-26-2025 Instructions Mckayla Blas NP - 01/26/2025 6:00 PM EDT Please call the [facility] to schedule your mammogram: [phone]- ext [phone] documented in this encounter [facility] 01-06-2025 Note Cardiovascular Medic ine [facility] SUBJECTIVE Chief Complaint Patient presents with Congestive Heart Failure Hypertension Hyperlipidemia Mitzi Macias is a 54 y.o. female here for follow-up. PMHx: HFpEF, HTN, HLD, DM, longstanding heavy smoker, COPD, DANIEL, morbid obesity HPI 01/06/2025 Since last seen she was admitted to [facility] for AMS on 12/05/2024. 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 2 diabetes mellitus ([facility]) Myelolipoma of adrenal gland Venous ulcer of right leg ([facility]) Chronic diastolic heart failure ([facility]) Antibiotic-induced yeast infection Cellulitis of left lower extremity Cigarette nicotine dependence without complication Fever 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 ([facility]) 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 Vitamin D deficiency, unspecified Vitamin deficiency Past Medical History: Diagnosis Date COPD (chronic obstructive pulmonary disease) ([facility]) Diabetes mellitus ([facility]) Hyperlipidemia Hypertension Sleep apnea [...] , Rfl: ergocalciferol (Vitamin D-2) 1.25 MG (76151 Units) capsule, Take 1.25 mg by mouth., [...] and at bedtime., Disp: , Rfl: HYDROcodone-acetaminophen ([place]) 5-325 mg tablet, TAKE 1 TABLET BY MOUTH THREE TIMES A DAY NEEDED FOR PAIN MUST LAST 30 DAYS, Disp: , Rfl: insulin aspart (NovoLOG) 100 unit/mL (3 mL) injection pen, Novolog Flexpen U-100 Insulin aspart 100 unit/mL (3 mL) subcutaneous, Disp: , Rfl: insulin glargine (Lantus Solostar U-100 Insulin) 100 unit/mL (3 mL) injection pen (more content not included)... [facility] 01-06-2025 Note Patient is here [...] weight gain. Cardiovascular: Positive for leg swelling. [facility] 12-09-2024 History of Present illness [...] bad light. She was ultimately taken to [facility] ER, no tox screen was done [...] 25 mg, Oral, 2 times daily HYDROcodone-acetaminophen ([place]) 5-325 MG tablet 1 tablet, 3 times [...] CT Albuminuria 09/17/2023 Angiomyolipoma Anxiety and depression ([facility]) 07/10/2023 Asthma 07/10/2023 Body mass index (BMI) 50.0-59.9, adult ([facility]) Cellulitis of left lower extremity Cervical cancer ([facility]) 09/17/2023 Chronic pain of both knees 09/17/2023 COPD (chronic obstructive pulmonary disease) ([facility]) 07/10/2023 COPD exacerbation ([facility]) 09/17/2023 Decreased functional mobility 09/17/2023 Diabetic neuropathy ([facility]) 07/10/2023 Dietary counseling and surveillance Edema 07/10/2023 Elevated sed rate Elevated WBC count Essential (primary) hypertension ([facility] GERD (gastroesophageal reflux disease) 09/17/2023 Hyperlipidemia ([facility]) 09/17/2023 Hypertension ([facility]) 07/10/2023 Insomnia 09/17/2023 long-term (current) use of insulin ([facility]) Lower extremity edema 09/17/2023 Mixed hyperlipidemia ([facility]) Morbid (severe) obesity due to excess calories ([facility]) Obstructive sleep apnea 07/10/2023 PAD (peripheral artery disease) ([facility]) 09/17/2023 Pancreatitis 09/17/2023 Pneumonia 09/17/2023 Proteinuria, unspecified Pulmonary hypertension ([facility]) 09/17/2023 Radiculopathy, lumbar region 09/17/2023 [...] Problem List Items Addressed This Visit Hypertension ([facility]) Please check blood pressure daily and record DASH diet Limit caffeine Take medication as directed Contact office if chest pain, pressure, dizziness, shortness of breath, swelling legs Recommend slow position changes Current meds: hydralazine, lisinopril, Type 2 diabetes mellitus with complication, with long-term current use of insulin ([facility]) Check blood sugars daily, [...] is not wearing this today Pulmonary hypertension ([facility]) Has seen [facility] Cardiology Morbid (severe) obesity due to excess calories ([facility]) Discussed with patient their [...] wearing this today documented in this encounter [facility] 12-09-2024 Instructions Mckayla Blas NP - 12/09/2024 10:00 AM EDT Keep appt with wound care today Keep fu with me, sooner if needed documented in this encounter [facility] 10-27-2024 History of Present illness [...] 25 mg, Oral, 2 times daily HYDROcodone-acetaminophen ([place]) 5-325 MG tablet 1 tablet, 3 times [...] CT Albuminuria 09/17/2023 Angiomyolipoma Anxiety and depression ([facility]) 07/10/2023 Asthma 07/10/2023 Body mass index (BMI) 50.0-59.9, adult ([facility]) Cellulitis of left lower extremity Cervical cancer ([facility]) 09/17/2023 Chronic pain of both knees 09/17/2023 COPD (chronic obstructive pulmonary disease) ([facility]) 07/10/2023 COPD exacerbation ([facility]) 09/17/2023 Decreased functional mobility 09/17/2023 Diabetic neuropathy ([facility]) 07/10/2023 Dietary counseling and surveillance Edema 07/10/2023 Elevated sed rate Elevated WBC count Essential (primary) hypertension ([facility]) GERD (gastroesophageal reflux disease) 09/17/2023 Hyperlipidemia ([facility]) 09/17/2023 Hypertension ([facility]) 07/10/2023 Insomnia 09/17/2023 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 ([facility]) Lower extremity edema 09/17/2023 Mixed hyperlipidemia ([facility]) Morbid (severe) obesity due to excess calories ([facility]) Obstructive sleep apnea 07/10/2023 PAD (peripheral artery disease) ([facility]) 09/17/2023 Pancreatitis 09/17/2023 Pneumonia 09/17/2023 Proteinuria, unspecified Pulmonary hypertension ([facility]) 09/17/2023 Radiculopathy, lumbar region 09/17/2023 Tobacco user 09/17/2023 Type 2 diabetes mellitus with complication, with long-term current use of insulin ([facility]) 07/10/2023 Unilateral primary osteoarthritis, [...] List Items Addressed This Visit Diabetic neuropathy ([facility]) - Primary Continue with cintia hudson mgmt is prescribing OARRS reviewed Fu in 3 months Goal: tighter glucose control, this has been improving, latest A1c is 7.4%!!! Hypertension ([facility]) Please check blood pressure daily and record DASH diet Limit caffeine Take medication as directed Contact office if chest pain, pressure, dizziness, shortness of breath, swelling legs Recommend slow position changes Current meds: hydralazine, lisinopril, Relevant Medications hydrALAZINE (Apresoline) 25 MG tablet lisinopril 20 MG tablet Type 2 diabetes mellitus with complication, with long-term current use of insulin ([facility]) Check blood sugars daily, [...] 81 MG chewable tablet Anxiety and depression ([facility]) Current meds: elavil, duloxtine, Relevant Medications DULoxetine (Cymbalta) [address] capsule Bilateral lower extremity edema Limit sodium , elevate legs, furosemide Relevant Medications furosemide (Lasix) 20 MG tablet potassium chloride ER (Micro-K) 10 MEQ ER capsule furosemide (Lasix) 40 MG tablet Insomnia Relevant Medications amitriptyline (Elavil) 25 MG tablet PAD (peripheral artery disease) ([facility]) Asa, statin Quit smoking [...] Relevant Medications ergocalciferol (Vitamin D2) 1.25 MG (77730 UT) capsule Gastro-esophageal reflux disease without esophagitis [...] (chronic obstructive pulmonary disease) (CMS/HCC) Follows with evrena Needs smoking cessation Current meds: duoneb, albuterol, daliresp, Associated Problem(s): Diabetic neuropathy ([facility]) Continue with cintia hudson is prescribing OARRS reviewed Fu in 3 months Goal: tighter glucose control, this has been improving, latest A1c is 7.4%!!! documented in this encounter [facility] 10-27-2024 Instructions Mckayla Blas NP - 10/27/2024 2:00 PM EDT No dose changes in meds You will be due for mammogram I will send order to [facility], they should call you to schedule If no call, please call [phone] ext [phone] documented in this encounter [facility] 10-08-2024 History of Present illness [...] or chew. ergocalciferol (Vitamin D2) 1.25 MG (09367 UT) capsule TAKE 1 CAPSULE BY MOUTH [...] 25 mg, Oral, 2 times daily HYDROcodone-acetaminophen ([place]) 5-325 MG tablet 1 tablet, 3 times [...] CT Albuminuria 09/17/2023 Angiomyolipoma Anxiety and depression ([facility]) 07/10/2023 Asthma ([facility]) 07/10/2023 Body mass index (BMI) 50.0-59.9, adult ([facility]) Cellulitis of left lower extremity Cervical cancer ([facility]) 09/17/2023 Chronic pain of both knees 09/17/2023 COPD (chronic obstructive pulmonary disease) ([facility]) 07/10/2023 COPD exacerbation ([facility]) 09/17/2023 Decreased functional mobility 09/17/2023 Diabetic neuropathy ([facility]) 07/10/2023 Dietary counseling and surveillance Edema 07/10/2023 Elevated sed rate Elevated WBC count Essential (primary) hypertension ([facility]) GERD (gastroesophageal reflux disease) 09/17/2023 Hyperlipidemia ([facility]) 09/17/2023 Hypertension ([facility]) 07/10/2023 Insomnia 09/17/2023 long-term (current) use of insulin ([facility]) Lower extremity edema 09/17/2023 Mixed hyperlipidemia ([facility]) Morbid (severe) obesity due to excess calories ([facility]) Obstructive sleep apnea 07/10/2023 PAD (peripheral artery disease) ([facility]) 09/17/2023 Pancreatitis 09/17/2023 Pneumonia 09/17/2023 Proteinuria, unspecified Pulmonary hypertension ([facility]) 09/17/2023 Radiculopathy, lumbar region 09/17/2023 [...] months (around 02/07/2025). documented in this encounter [facility] 08-27-2024 History of Present illness [...] or chew. ergocalciferol (Vitamin D2) 1.25 MG (11157 UT) capsule TAKE 1 CAPSULE BY MOUTH [...] 25 mg, Oral, 2 times daily HYDROcodone-acetaminophen ([place]) 5-325 MG tablet 1 tablet, 3 times [...] CT Albuminuria 09/17/2023 Angiomyolipoma Anxiety and depression ([facility]) 07/10/2023 Asthma ([facility]) 07/10/2023 Body mass index (BMI) 50.0-59.9, adult ([facility]) Cellulitis of left lower extremity Cervical cancer ([facility]) 09/17/2023 Chronic pain of both knees 09/17/2023 COPD (chronic obstructive pulmonary disease) ([facility]) 07/10/2023 COPD exacerbation ([facility]) 09/17/2023 Decreased functional mobility 09/17/2023 Diabetic neuropathy ([facility]) 07/10/2023 Dietary counseling and surveillance Edema 07/10/2023 Elevated sed rate Elevated WBC count Essential (primary) hypertension ([facility]) GERD (gastroesophageal reflux disease) 09/17/2023 Hyperlipidemia ([facility]) 09/17/2023 Hypertension ([facility]) 07/10/2023 Insomnia 09/17/2023 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 ([facility]) Lower extremity edema 09/17/2023 Mixed hyperlipidemia ([facility]) Morbid (severe) obesity due to excess calories ([facility]) Obstructive sleep apnea 07/10/2023 PAD (peripheral artery disease) ([facility]) 09/17/2023 Pancreatitis 09/17/2023 Pneumonia 09/17/2023 Proteinuria, unspecified Pulmonary hypertension ([facility]) 09/17/2023 Radiculopathy, lumbar region [...] 3 months Goal: tighter glucose control Hypertension ([facility]) Please check blood pressure daily and [...] complication, with long-term current use of insulin ([facility]) Check blood sugars daily, [...] of the risks of continued smoking: stroke, SD, all forms of cancer, lung disease, and [...] of the risks of continued smoking: stroke, SD, all forms of cancer, lung disease, and [...] complication, with long-term current use of insulin ([facility]) Check blood sugars daily, [...] Morbid (severe) obesity due to excess calories ([facility]) Discussed with patient their [...] Problem(s): Malignant neoplasm of cervix uteri, unspecified ([facility]) Had in the past, [...] Asthma (CMS/HCC) Current meds: albuterol, duoneb, 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 Subjective Mitzi Macias is a [...] Other chronic pain PAD (peripheral artery disease) ([facility]) Pneumonia Encounter for screening mammogram for malignant neoplasm of breast Pulmonary hypertension ([facility]) Radiculopathy, lumbar region Current smoker Type 2 diabetes mellitus with complication, with long-term current use of insulin ([facility]) Unilateral primary osteoarthritis, right hip Vaginal yeast infection Venous insufficiency Bad odor of urine Critical limb ischemia of right lower extremity ([facility]) Hyperpigmentation of skin 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 2 diabetes mellitus ([facility]) Myelolipoma of adrenal gland Venous ulcer of right leg ([facility]) HPI Patient was has [...] Diagnosis Date COPD (chronic obstructive pulmonary disease) ([facility]) Diabetes mellitus ([facility]) Hyperlipidemia Hypertension Sleep apnea [...] , Rfl: ergocalciferol (Vitamin D-2) 1.25 MG (91514 Units) capsule, Take 1.25 mg by mouth., [...] and at bedtime., Disp: , Rfl: HYDROcodone-acetaminophen ([place]) 5-325 mg tablet, TAKE 1 TABLET BY [...] TWICE DAILY, Disp: (more content not included)... [facility] 07-14-2024 History of Present illness [...] or chew. ergocalciferol (Vitamin D2) 1.25 MG (01208 UT) capsule TAKE 1 CAPSULE BY MOUTH ONE TIME PER WEEK furosemide (LASIX) 40 mg, Oral, Daily furosemide (LASIX) 20 mg, Oral, Daily PRN, Take in the afternoon as needed hydrALAZINE (APRESOLINE) 25 mg, Oral, 2 times daily HYDROcodone-acetaminophen ([place]) 5-325 MG tablet 1 tablet, 3 times [...] CT Albuminuria 09/17/2023 Angiomyolipoma Anxiety and depression ([facility]) 07/10/2023 Asthma ([facility]) 07/10/2023 Body mass index (BMI) 50.0-59.9, adult ([facility]) Cellulitis of left lower extremity Cervical cancer ([facility]) 09/17/2023 Chronic pain of both knees 09/17/2023 COPD (chronic obstructive pulmonary disease) ([facility]) 07/10/2023 COPD exacerbation ([facility]) 09/17/2023 Decreased functional mobility 09/17/2023 Diabetic neuropathy ([facility]) 07/10/2023 Dietary counseling and surveillance Edema 07/10/2023 Elevated sed rate Elevated WBC count Essential (primary) hypertension ([facility]) GERD (gastroesophageal reflux disease) 09/17/2023 Hyperlipidemia ([facility]) 09/17/2023 Hypertension ([facility]) 07/10/2023 Insomnia 09/17/2023 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 ([facility]) Lower extremity edema 09/17/2023 Mixed hyperlipidemia ([facility]) Morbid (severe) obesity due to excess calories ([facility]) Obstructive sleep apnea 07/10/2023 PAD (peripheral artery disease) ([facility]) 09/17/2023 Pancreatitis 09/17/2023 Pneumonia 09/17/2023 Proteinuria, unspecified Pulmonary hypertension ([facility]) 09/17/2023 Radiculopathy, lumbar region 09/17/2023 Tobacco user 09/17/2023 Type 2 diabetes mellitus with complication, with long-term current use of insulin ([facility]) 07/10/2023 Unilateral primary osteoarthritis, [...] List Items Addressed This Visit Diabetic neuropathy ([facility]) Continue with tristan [place] reviewed Fu in 3 months COPD (chronic obstructive pulmonary disease) ([facility]) Stable at this time, no changes in meds Encouraged smoking cessation Cont with dr Yañez Hypertension ([facility]) - Primary Please check blood pressure daily and record DASH diet Limit caffeine Take medication as directed Contact office if chest pain, pressure, dizziness, shortness of breath, swelling legs Recommend slow position changes Current meds: hydralazine, lisinopril, Type 2 diabetes mellitus with complication, with long-term current use of insulin ([facility]) Check blood sugars daily, [...] of the risks of continued smoking: stroke, SD, all forms of cancer, lung disease, and [...] 1 cm to 4 cm in diameter ([facility]) Continue with Urology Kidney stone Continue with Urology Non-seasonal allergic rhinitis Relevant Medications cetirizine (ZyrTEC) 10 MG tablet Critical limb ischemia of right lower extremity ([facility]) Saw vascular, does have narrowing in arteries in legs, and thus the wounds not healing At this point they strongly urge to quit smoking or risk limb amputation Cont asa and statin Also good blood pressure and sugar control Venous ulcer of right leg ([facility]) Encounter for smoking cessation counseling Relevant Medications nicotine (Nicoderm, Step 1) 21 MG/24HR patch Other Visit Diagnoses Type 2 diabetes mellitus with unspecified complications ([facility]) Quitting smokinppd, chantix not helped, ] Face time with pt, spent 15 minutes with pt Associated Problem(s): Tobacco user The patient has been advised of the risks of continued smoking: stroke, SD, all forms of cancer, lung disease, and [...] in 3 months documented in this encounter [facility] 06-11-2024 Hospital Discharge instructions [...] require a prescription. You can also purchase lnhe-veb-lmpddut medicines. Medicines may have nicotine in them [...] and encouragement. Call telephone quitlines, such as 7-448-OVPD-NOW, reach out to support groups, or work [...] provider. Document Revised: 06/16/2022 Document Reviewed: 06/16/2022 [employer] Patient Education 2023 [employer]. 06/11/2024 10:39:22 Dietary Guidelines to Help Prevent [...] include: ?8 oz (237 mL) of milk, rcbaiip-ebgatkjcykvl-censz milk, and calcium-fortifiedfruit juice. Calcium-fortified means that [...] ?Spinach (cooked), rhubarb, beets, sweet potatoes, and [place]ian chard. ?Peanuts. ?Potato chips, english fries, and baked potatoes with skin on. ?Nuts and nut products. ?Chocolate. If you regularly take a diuretic medicine, make sure to eat at least 1 or 2 servings of fruits or vegetables that are high in potassium each day. These include: ?Avocado. ?Banana. ?Mustang, prune, carrot, or tomato juice. ?Baked potato. [...] magnesium, fish oil, or vitamin B6. Take ucag-ieo-bisgzqh and prescription medicines only as told by [...] Casseroles. Pizza. Lasagna. Frozen meals. Potato chips. [place]ruguayan fries. The items listed above may not [...] provider. Document Revised: 10/05/2022 Document Reviewed: 10/05/2022 [employer] Patient Education 2023 [employer]. Follow Up Care 05/06/2024 08:24:56 With:REGLA PHIPPS, Elbert Joya, URL Address: [facility] [address], [place] [id number]- When: Unknown [facility] [place] 05-27-2024 History of Present illness Narrative Mitzi [...] or chew. ergocalciferol (Vitamin D2) 1.25 MG (86678 UT) capsule TAKE 1 CAPSULE BY MOUTH ONE TIME PER WEEK furosemide (LASIX) 20 mg, Oral, Daily PRN, Take in the afternoon as needed furosemide (LASIX) 40 mg, Oral, Daily Glucose Blood (ACCU-CHEK JAQUI PLUS ) 4 times daily hydrALAZINE (APRESOLINE) 25 mg, Oral, 2 times daily HYDROcodone-acetaminophen ([place]) 5-325 MG tablet 1 tablet, 3 times [...] CT Albuminuria 09/17/2023 Angiomyolipoma Anxiety and depression ([facility]) 07/10/2023 Asthma ([facility]) 07/10/2023 Body mass index (BMI) 50.0-59.9, adult ([facility]) Cellulitis of left lower extremity Cervical cancer ([facility]) 09/17/2023 Chronic pain of both knees 09/17/2023 COPD (chronic obstructive pulmonary disease) ([facility]) 07/10/2023 COPD exacerbation ([facility]) 09/17/2023 Decreased functional mobility 09/17/2023 Diabetic neuropathy ([facility]) 07/10/2023 Dietary counseling and surveillance Edema 07/10/2023 Elevated sed rate Elevated WBC count GERD (gastroesophageal reflux disease) 09/17/2023 Hyperlipidemia ([facility]) 09/17/2023 Hypertension ([facility]) 07/10/2023 Insomnia 09/17/2023 long-term (current) use of insulin ([facility]) Lower extremity edema 09/17/2023 Morbid (severe) obesity due to excess calories ([facility]) Obstructive sleep apnea 07/10/2023 PAD (peripheral artery disease) ([facility]) 09/17/2023 Pancreatitis 09/17/2023 Pneumonia 09/17/2023 Proteinuria, unspecified Pulmonary hypertension ([facility]) 09/17/2023 Radiculopathy, lumbar region 09/17/2023 [...] hyperglycemia, with long-term current use of insulin ([facility]) - POCT glucose manually resulted - POCT glycosylated hemoglobin (Hb A1C) docked device We will continue with Lantus 58, lispro 02/16/12 according to meal size, Mounjaro 15 mg once weekly, Farxiga 5 mg once a day Encounter for dietary consultation Vitamin D deficiency Primary hypertension ([facility]) To follow with her PCP Insulin long-term use ([facility]) Hyperlipemia, mixed ([facility]) Continue with Zocor 10 mg once daily Microalbuminuria Class 3 severe obesity due to excess calories with serious comorbidity and body mass index (BMI) of 50.0 to 59.9 in adult ([facility]) Diet and exercise reviewed [...] being taken. 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 Hypertension This is [...] or chew. ergocalciferol (Vitamin D2) 1.25 MG (62598 UT) capsule TAKE 1 CAPSULE BY MOUTH ONE TIME PER WEEK furosemide (LASIX) 20 mg, Oral, Daily PRN, Take in the afternoon as needed furosemide (LASIX) 40 mg, Oral, Daily Glucose Blood (ACCU-CHEK JAQUI PLUS ) 4 times daily HumaLOG KWIKPEN 100 UNIT/ML injection Subcutaneous hydrALAZINE (APRESOLINE) 25 mg, Oral, 2 times daily HYDROcodone-acetaminophen ([place]) 5-325 MG tablet 1 tablet, 3 times [...] CT Albuminuria 09/17/2023 Angiomyolipoma Anxiety and depression ([facility]) 07/10/2023 Asthma ([facility]) 07/10/2023 Cellulitis of left lower extremity Cervical cancer ([facility]) 09/17/2023 Chronic pain of both knees 09/17/2023 COPD (chronic obstructive pulmonary disease) ([facility]) 07/10/2023 COPD exacerbation ([facility]) 09/17/2023 Decreased functional mobility 09/17/2023 Diabetic neuropathy ([facility]) 07/10/2023 Edema 07/10/2023 Elevated sed rate Elevated WBC count GERD (gastroesophageal reflux disease) 09/17/2023 Hyperlipidemia ([facility]) 09/17/2023 Hypertension ([facility]) 07/10/2023 Insomnia 09/17/2023 Lower extremity edema 09/17/2023 Obstructive sleep apnea 07/10/2023 PAD (peripheral artery disease) ([facility]) 09/17/2023 Pancreatitis 09/17/2023 Pneumonia 09/17/2023 Pulmonary hypertension ([facility]) 09/17/2023 Radiculopathy, lumbar region 09/17/2023 [...] smoking cessation Cont with dr Yañez Hypertension ([facility]) Stable on current meds Refill meds Relevant Medications hydrALAZINE (Apresoline) 25 MG tablet lisinopril 20 MG tablet Type 2 diabetes mellitus with complication, with long-term current use of insulin ([facility]) Check blood sugars daily, [...] 81 MG chewable tablet Anxiety and depression ([facility]) Relevant Medications DULoxetine (Cymbalta) [address] capsule Bilateral lower extremity edema Stable on current meds Insomnia Relevant Medications amitriptyline (Elavil) 25 MG tablet Tobacco user Urged to quit Non-seasonal allergic rhinitis Relevant Medications cetirizine (ZyrTEC) 10 MG tablet Hyperpigmentation of skin Will try cerevue ointment to see if helps Other Visit Diagnoses Type 2 diabetes mellitus with unspecified complications ([facility]/HCC) Relevant Medications dapagliflozin (Farxiga) 10 MG Gastro-esophageal reflux disease without esophagitis Relevant Medications omeprazole (PriLOSEC) [address] capsule Edema, unspecified Relevant Medications potassium chloride ER (Micro-K) 10 MEQ ER capsule Edema Relevant Medications potassium chloride ER (Micro-K) 10 MEQ ER capsule Chronic obstructive pulmonary disease, unspecified (CMS/[facility]) Relevant Medications Roflumilast 500 MCG tablet documented in this encounter [facility] 11-15-2022 Hospital Discharge instructions Patient [...] include: ?8 oz (237 mL) of milk, tkhvqic-uvgdqhbzaguk-itbkl milk, and calcium-fortifiedfruit juice. Calcium-fortified means that [...] ?Spinach (cooked), rhubarb, beets, sweet potatoes, and [place] chard. ?Peanuts. ?Potato chips, english fries, and baked potatoes with skin on. ?Nuts and nut products. ?Chocolate. If you regularly take a diuretic medicine, make sure to eat at least 1 or 2 servings of fruits or vegetables that are high in potassium each day. These include: ?Avocado. ?Banana. ?Mustang, prune, carrot, or tomato juice. ?Baked potato. [...] magnesium, fish oil, or vitamin B6. Take vhud-fxq-ilifbsl and prescription medicines only as told by [...] Casseroles. Pizza. Lasagna. Frozen meals. Potato chips. [place] fries. The items listed above may not [...] provider. Document Revised: 03/06/2022 Document Reviewed: 03/06/2022 [employer] Patient Education 2022 [employer]. Follow Up Care 02/06/2022 11:44:09 With:SARAH VEGA PA-C, URL Address: [address] [place] [address] When: Unknown [facility] [...] We maintain her on pain medication with [place] 5/325 t.i.d., diclofenac 75 mg b.i.d. Her [...] her at this point. A refill for [place] 5/325 t.i.d. and diclofenac 75 mg b.i.d. will be sent to the pharmacy. Vitamin compliance and nutrition were discussed and enforced. I did highly encourage her to use exercise bands to increase the strength in her lower extremities. We will see her in three months' time, unless otherwise indicated, and patient agrees. [facility] 05-11-2022 Note CONSULTATION CONSULTATION DATE: [...] 150. Medications include Lyrica 300 mg b.i.d., [place] 5/325 t.i.d., diclofenac 75 mg b.i.d. and [...] her medications today. We will maintain Lyrica, [place] and diclofenac at the set dose and frequency. We will follow-up in the clinic in three months' time. The patient is in agreement to this. Vitamin importance and nutrition were discussed. [facility] 04-20-2022 Note CONSULTATION CONSULTATION DATE: [...] medications include Tylenol, Lyrica 300 mg b.i.d., [place] 5/325 t.i.d., amitriptyline, diclofenac and duloxetine. Patient's [...] be followed up in the clinic. [facility] 03-08-2022 Evaluation note Encounter Date [...] to the DANIEL. Thrombocytopenia is unclear etiology. [employer] Other 08-15-2022 Evaluation note* Encounter Date Diagnosis [...] follow with Dr. Souza and Dr. Arauz. [place] [employer] Other 08-01-2022 Hospital Discharge instructions Patient Education [...] fried and sweet foods. General instructions Take kjjz-nrq-nhhbtwu and prescription medicines only as told by [...] 04/21/2010 Document Revised: 10/16/2019 Document Reviewed: 07/11/2018 [employer] Patient Education 2020 [employer]. Follow Up Care 01/05/2022 12:02:03 With:REGLA PHIPPS, Elbert R, URL Address: [facility] [address] [place] [phone] When:Within 6 Month(s) Comments:w/ repeat CT A/P [facility] 07-14-2022 NoteCONSULTATION PROCEDURE DATE: 01/19/2022 PRE [...] pattern and the patient tolerated it well. [facility] Signed and Approved by: GIL VALENZUELA . 01/27/2022 14:15:00[facility]07-14-2022 NoteCONSULTATION CONSULTATION DATE: 01/19/2022 This [...] today. Medications include Lyrica 300 mg b.i.d., [place] 5/325 t.i.d., diclofenac 75 mg b.i.d. and [...] in three months' time unless otherwise indicated. [facility] Signed and Approved by: GIL VALENZUELA . 01/27/2022 14:[facility]00[facility]ments Appointment Date:08/14/2022 09:15:00 AM Scheduled Provider:Elbert ARAUZ MD Location:[facility] Appointment Type:URO Office Visit [facility] evaluation + Plan note Future Appointments Appointment Date:04/22/2024 10:00:00 AM Scheduled Provider:SARAH VEGA PA-C Location:[facility] Appointment Type:URO Office Visit [facility] evaluation note* Diagnosis Type 2 diabetes mellitus with unspecified complications (CMS/HCC) Edema, unspecified Edema [facility] Diagnosis Vaginal yeast infection- Primary Candidiasis of vulva and vagina [facility] Diagnosis Primary hypertension (CMS/HCC)- Primary Unspecified essential hypertension Insomnia Insomnia, unspecified Type 2 diabetes mellitus with complication, with long-term current use of insulin ([facility]) Non-seasonal allergic rhinitis, unspecified trigger Type 2 diabetes mellitus with unspecified complications ([facility]) Anxiety and depression ([facility]) Gastro-esophageal reflux disease without esophagitis Edema, unspecified Edema Diabetic polyneuropathy associated with type 2 diabetes mellitus ([facility]) Chronic obstructive pulmonary disease, unspecified ([facility]) Pulmonary emphysema, unspecified emphysema type ([facility]) Bilateral lower extremity edema Tobacco user Tobacco use disorder Hyperpigmentation of skin Other dyschromia [facility] Diagnosis Obstructive sleep apnea- Primary Obstructive sleep apnea (adult) (pediatric) Pulmonary emphysema, unspecified emphysema type ([facility]) Primary hypertension ([facility]) Unspecified essential hypertension Type 2 diabetes mellitus with complication, with long-term current use of insulin ([facility]) Anxiety and depression ([facility]) Bilateral lower extremity edema Pulmonary emphysema, unspecified emphysema type ([facility])- Primary Primary hypertension ([facility]) Unspecified essential hypertension Class 3 severe obesity with serious comorbidity and body mass index (BMI) of 50.0 to 59.9 in adult, unspecified obesity type ([facility]) Obstructive sleep apnea Obstructive sleep apnea (adult) (pediatric) Pulmonary hypertension ([facility]) Other chronic pulmonary heart diseases Tobacco user Tobacco use disorder Cardiomegaly Primary hypertension ([facility])- Primary Unspecified essential hypertension Gastroesophageal reflux disease, unspecified whether esophagitis present Type 2 diabetes mellitus with complication, with long-term current use of insulin ([facility]) Mixed hyperlipidemia ([facility]) Mixed hyperlipidemia Tobacco user Tobacco use disorder Encounter for screening mammogram for malignant neoplasm of breast Chronic obstructive pulmonary disease, unspecified ([facility]) Other specified chronic obstructive pulmonary disease ([facility]) Anxiety and depression ([facility]) Edema, unspecified Edema Hyperlipidemia, unspecified ([facility]) Diabetic polyneuropathy associated with type 2 diabetes mellitus ([facility]) Gout, unspecified cause, unspecified chronicity, unspecified site Non-seasonal allergic rhinitis, unspecified trigger Bilateral lower extremity edema COPD exacerbation ([facility]) Obstructive chronic bronchitis with exacerbation Pulmonary emphysema, unspecified emphysema type ([facility]) Venous insufficiency Unspecified venous (peripheral) insufficiency Candidiasis of breast COPD exacerbation ([facility])- Primary Obstructive chronic bronchitis [...] long-term (current) use of insulin Hyperlipemia, mixed ([facility]) Mixed hyperlipidemia Microalbuminuria Proteinuria Class 3 severe obesity due to excess calories with serious comorbidity and body mass index (BMI) of 50.0 to 59.9 in adult ([facility]) documented in this encounter [facility]* Diagnosis Hyperlipidemia, unspecified ([facility]) Bilateral lower extremity edema documented in this encounter [facility]* Diagnosis Vitamin D deficiency, unspecified documented in this encounter [facility]* Diagnosis Obstructive sleep apnea- Primary Obstructive sleep apnea (adult) (pediatric) Pulmonary emphysema, unspecified emphysema type ([facility]) Primary hypertension ([facility]) Unspecified essential hypertension Type 2 diabetes mellitus with complication, with long-term current use of insulin ([facility]) Anxiety and depression ([facility]) Bilateral lower extremity edema Pulmonary emphysema, unspecified emphysema type ([facility])- Primary Primary hypertension ([facility]) Unspecified essential hypertension Class 3 severe obesity with serious comorbidity and body mass index (BMI) of 50.0 to 59.9 in adult, unspecified obesity type ([facility]) Obstructive sleep apnea Obstructive sleep apnea (adult) (pediatric) Pulmonary hypertension ([facility]) Other chronic pulmonary heart diseases Tobacco user Tobacco use disorder Cardiomegaly Primary hypertension ([facility])- Primary Unspecified essential hypertension Gastroesophageal reflux disease, unspecified whether esophagitis present Type 2 diabetes mellitus with complication, with long-term current use of insulin ([facility]) Mixed hyperlipidemia ([facility]) Mixed hyperlipidemia Tobacco user Tobacco use disorder Encounter for screening mammogram for malignant neoplasm of breast Chronic obstructive pulmonary disease, unspecified ([facility]) Other specified chronic obstructive pulmonary disease ([facility]) Anxiety and depression ([facility]) Edema, unspecified Edema Hyperlipidemia, unspecified ([facility]) Diabetic polyneuropathy associated with type 2 diabetes mellitus ([facility]) Gout, unspecified cause, unspecified chronicity, unspecified site Non-seasonal allergic rhinitis, unspecified trigger Bilateral lower extremity edema COPD exacerbation ([facility]) Obstructive chronic bronchitis with exacerbation Pulmonary emphysema, unspecified emphysema type ([facility]) Venous insufficiency Unspecified venous (peripheral) insufficiency Candidiasis of breast COPD exacerbation ([facility])- Primary Obstructive chronic bronchitis with exacerbation Pulmonary hypertension ([facility]) Other chronic pulmonary heart [...] to 59.9 in adult, unspecified obesity type ([facility]/HCC) Encounter for subsequent annual wellness visit [...] Major depressive disorder, single episode, mild (HCC) ([facility]/HCC) Major depressive disorder, single episode, mild [...] polyneuropathy associated with type 2 diabetes mellitus ([facility]) Chronic obstructive pulmonary disease, [...] lower extremity (CMS/HCC) PAD (peripheral artery disease) ([facility]) Unspecified peripheral vascular disease Gastroesophageal reflux disease, unspecified whether esophagitis present Bilateral lower extremity edema Venous ulcer of right leg ([facility]) Type 2 diabetes mellitus with complication, with long-term current use of insulin ([facility]) Tobacco user Tobacco use disorder Encounter for smoking cessation counseling Kidney stone Calculus of kidney Adrenal mass 1 cm to 4 cm in diameter ([facility]) Radiculopathy, lumbar region Thoracic or lumbosacral neuritis or radiculitis, unspecified Non-seasonal allergic rhinitis, unspecified trigger Type 2 diabetes mellitus with unspecified complications (CMS/HCC) documented in this encounter [facility]* Diagnosis Obstructive sleep apnea- Primary Obstructive sleep apnea (adult) (pediatric) Pulmonary emphysema, unspecified emphysema type (CMS/HCC) Primary hypertension (CMS/[facility]) Unspecified essential hypertension Type 2 diabetes mellitus with complication, with long-term current use of insulin ([facility]) Anxiety and depression (CMS/[facility]) Bilateral lower extremity edema Pulmonary emphysema, unspecified emphysema type ([facility]/HCC)- Primary Primary hypertension ([facility]) Unspecified essential hypertension Class 3 severe obesity with serious comorbidity and body mass index (BMI) of 50.0 to 59.9 in adult, unspecified obesity type ([facility]) Obstructive sleep apnea Obstructive sleep apnea (adult) (pediatric) Pulmonary hypertension ([facility]) Other chronic pulmonary heart diseases Tobacco user Tobacco use disorder Cardiomegaly Primary hypertension ([facility])- Primary Unspecified essential hypertension Gastroesophageal reflux disease, unspecified whether esophagitis present Type 2 diabetes mellitus with complication, with long-term current use of insulin ([facility]) Mixed hyperlipidemia ([facility]) Mixed hyperlipidemia Tobacco user Tobacco use disorder Encounter for screening mammogram for malignant neoplasm of breast Chronic obstructive pulmonary disease, unspecified ([facility]) Other specified chronic obstructive pulmonary disease ([facility]) Anxiety and depression ([facility]) Edema, unspecified Edema Hyperlipidemia, unspecified ([facility]) Diabetic polyneuropathy associated with type 2 diabetes mellitus ([facility]) Gout, unspecified cause, unspecified chronicity, unspecified site Non-seasonal allergic rhinitis, unspecified trigger Bilateral lower extremity edema COPD exacerbation ([facility]) Obstructive chronic bronchitis with exacerbation Pulmonary emphysema, unspecified emphysema type ([facility]) Venous insufficiency Unspecified venous (peripheral) insufficiency Candidiasis of breast COPD exacerbation ([facility])- Primary Obstructive chronic bronchitis with exacerbation Pulmonary hypertension ([facility]) Other chronic pulmonary heart diseases Class 3 severe obesity with serious comorbidity and body mass index (BMI) of 50.0 to 59.9 in adult, unspecified obesity type ([facility]) Encounter for subsequent annual wellness visit (AWV) in Medicare patient- Primary Type 2 diabetes mellitus with unspecified complications ([facility]) Pulmonary emphysema, unspecified emphysema type ([facility]) Moderate persistent asthma without complication ([facility]) Primary hypertension ([facility]) Unspecified essential hypertension Type 2 diabetes mellitus with complication, with long-term current use of insulin ([facility]) Class 3 severe obesity with serious comorbidity and body mass index (BMI) of 50.0 to 59.9 in adult, unspecified obesity type ([facility]) Tobacco user Tobacco use [...] (CMS/[facility]) PAD (peripheral artery disease) ([facility]) Unspecified peripheral vascular disease Gastroesophageal reflux disease, unspecified whether esophagitis present Bilateral lower extremity edema Venous ulcer of right leg (CMS/[facility]) Type 2 diabetes mellitus with complication, with long-term current use of insulin (CMS/HCC) Tobacco user Tobacco use disorder Encounter for smoking cessation counseling Kidney stone Calculus of kidney Adrenal mass 1 cm to 4 cm in diameter ([facility]) Radiculopathy, lumbar region Thoracic or lumbosacral neuritis or radiculitis, unspecified Non-seasonal allergic rhinitis, unspecified trigger Type 2 diabetes mellitus with unspecified complications (CMS/HCC) Anxiety and depression (CMS/HCC)- Primary Morbid (severe) obesity due to excess calories (CMS/[facility]) Body mass index (BMI) 50.0-59.9, adult (CMS/[facility]) Malignant neoplasm of cervix uteri, unspecified ([facility]) Diabetic polyneuropathy associated with type 2 diabetes mellitus ([facility]) Chronic diastolic heart failure ([facility]) Chronic diastolic heart failure Primary hypertension ([facility]) Unspecified essential hypertension 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 ([facility]) Gastroesophageal reflux disease, unspecified whether esophagitis present Bilateral lower extremity edema Type 2 diabetes mellitus with complication, with long-term current use of insulin ([facility]) Tobacco user Tobacco use disorder Mixed hyperlipidemia ([facility]) Mixed hyperlipidemia Gout, unspecified cause, unspecified chronicity, unspecified site Vitamin deficiency Unspecified vitamin deficiency Gastro-esophageal reflux disease without esophagitis Edema, unspecified Edema Hyperlipidemia, unspecified ([facility]) Encounter for smoking cessation counseling Venous ulcer of right leg ([facility]) Antibiotic-induced yeast infection documented in this encounter [facility]* Diagnosis Obstructive sleep apnea- Primary Obstructive sleep apnea (adult) (pediatric) Pulmonary emphysema, unspecified emphysema type ([facility]) Primary hypertension ([facility]) Unspecified essential hypertension Type 2 diabetes mellitus with complication, with long-term current use of insulin ([facility]) Anxiety and depression ([facility]) Bilateral lower extremity edema Pulmonary emphysema, unspecified emphysema type ([facility])- Primary Primary hypertension ([facility]) Unspecified essential hypertension Class 3 severe obesity with serious comorbidity and body mass index (BMI) of 50.0 to 59.9 in adult, unspecified obesity type Obstructive sleep apnea Obstructive sleep apnea (adult) (pediatric) Pulmonary hypertension ([facility]) Other chronic pulmonary heart diseases Tobacco user Tobacco use disorder Cardiomegaly Primary hypertension ([facility])- Primary Unspecified essential hypertension Gastroesophageal reflux disease, unspecified whether esophagitis present Type 2 diabetes mellitus with complication, with long-term current use of insulin ([facility]) Mixed hyperlipidemia ([facility]) Mixed hyperlipidemia Tobacco user Tobacco use disorder Encounter for screening mammogram for malignant neoplasm of breast Chronic obstructive pulmonary disease, unspecified Other specified chronic obstructive pulmonary disease Anxiety and depression ([facility]) Edema, unspecified Edema Hyperlipidemia, unspecified ([facility]) Diabetic polyneuropathy associated with type 2 diabetes mellitus ([facility]) Gout, unspecified cause, unspecified [...] lower extremity (CMS/HCC) PAD (peripheral artery disease) ([facility]) Unspecified peripheral vascular disease Gastroesophageal reflux disease, unspecified whether esophagitis present Bilateral lower extremity edema Venous ulcer of right leg ([facility]) Type 2 diabetes mellitus with complication, with long-term current use of insulin ([facility]) Tobacco user Tobacco use disorder Encounter for smoking cessation counseling Kidney stone Calculus of kidney Adrenal mass 1 cm to 4 cm in diameter ([facility]) Radiculopathy, lumbar region Thoracic or lumbosacral neuritis or radiculitis, unspecified Non-seasonal allergic rhinitis, unspecified trigger Type 2 diabetes mellitus with unspecified complications Anxiety and depression ([facility])- Primary Morbid (severe) obesity due to excess calories ([facility]) Body mass index (BMI) 50.0-59.9, adult ([facility]) Malignant neoplasm of cervix uteri, unspecified Diabetic polyneuropathy associated with type 2 diabetes mellitus ([facility]) Chronic diastolic heart failure ([facility]) Chronic diastolic heart failure Primary hypertension ([facility]) Unspecified essential hypertension 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 Gastroesophageal reflux disease, unspecified whether esophagitis present Bilateral lower extremity edema Type 2 diabetes mellitus with complication, with long-term current use of insulin ([facility]) Tobacco user Tobacco use disorder Mixed hyperlipidemia ([facility]) Mixed hyperlipidemia Gout, unspecified cause, unspecified chronicity, unspecified site Vitamin deficiency Unspecified vitamin deficiency Gastro-esophageal reflux disease without esophagitis Edema, unspecified Edema Hyperlipidemia, unspecified ([facility] [place] Encounter for smoking cessation counseling Venous ulcer of right leg ([facility] [place]) Antibiotic-induced yeast infection Type 2 diabetes mellitus with hyperglycemia, with long-term current use of insulin ([facility] [place])- Primary Encounter for dietary consultation Vitamin D deficiency Primary hypertension ([facility] [place]) Unspecified essential hypertension Insulin long-term use ([facility] [place]) Encounter for long-term (current) use of insulin Hyperlipemia, mixed ([facility]) Mixed hyperlipidemia Microalbuminuria Proteinuria Class 3 severe obesity due to excess calories with serious comorbidity and body mass index (BMI) of 50.0 to 59.9 in adult documented in this encounter [facility] HealthcareEvaluation note* Diagnosis Obstructive sleep apnea- Primary Obstructive sleep apnea (adult) (pediatric) Pulmonary emphysema, unspecified emphysema type ([facility]) Primary hypertension ([facility] [place]) Unspecified essential hypertension Type 2 diabetes mellitus with complication, with long-term current use of insulin ([facility]) Anxiety and depression ([facility]) Bilateral lower extremity edema Pulmonary emphysema, unspecified emphysema type (CMS/HCC)- Primary Primary hypertension ([facility]) Unspecified essential hypertension Class [...] polyneuropathy associated with type 2 diabetes mellitus ([facility]) Gout, unspecified cause, unspecified [...] without complication ([facility]) Primary hypertension ([facility]) Unspecified essential hypertension Type 2 diabetes mellitus with complication, with long-term current use of insulin ([facility]) Class 3 severe obesity [...] lower leg limited to breakdown of skin ([facility]) Non-recurrent acute suppurative otitis media of left ear without spontaneous rupture of tympanic membrane Primary hypertension ([facility])- Primary Unspecified essential hypertension Insomnia Insomnia, unspecified Type 2 diabetes mellitus with complication, with long-term current use of insulin ([facility]) Non-seasonal allergic rhinitis, unspecified trigger Type 2 diabetes mellitus with unspecified complications Anxiety and depression ([facility]) Gastro-esophageal reflux disease without esophagitis Edema, unspecified Edema Diabetic polyneuropathy associated with type 2 diabetes mellitus ([facility]) Chronic obstructive pulmonary disease, unspecified Pulmonary emphysema, unspecified emphysema type ([facility]) Bilateral lower extremity edema Tobacco user Tobacco use disorder Hyperpigmentation of skin Other dyschromia Primary hypertension ([facility])- Primary Unspecified essential hypertension Diabetic polyneuropathy associated with type 2 diabetes mellitus ([facility]) Pulmonary emphysema, unspecified emphysema type ([facility]) Critical limb ischemia of right lower extremity ([facility]) PAD (peripheral artery disease) ([facility]) Unspecified peripheral vascular disease Gastroesophageal reflux disease, unspecified whether esophagitis present Bilateral lower extremity edema Venous ulcer of right leg ([facility]) Type 2 diabetes mellitus with complication, with long-term current use of insulin ([facility]) Tobacco user Tobacco use disorder Encounter for smoking cessation counseling Kidney stone Calculus of kidney Adrenal mass 1 cm to 4 cm in diameter ([facility]) Radiculopathy, lumbar region Thoracic or lumbosacral neuritis or radiculitis, unspecified Non-seasonal allergic rhinitis, unspecified trigger Type 2 diabetes mellitus with unspecified complications Anxiety and depression ([facility])- Primary Morbid (severe) obesity due to excess calories ([facility]) Body mass index (BMI) 50.0-59.9, adult ([facility]) Malignant neoplasm of cervix uteri, unspecified Diabetic polyneuropathy associated with type 2 diabetes mellitus ([facility]) Chronic diastolic heart failure ([facility]) Chronic diastolic heart failure Primary hypertension ([facility]) Unspecified essential hypertension 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 Gastroesophageal reflux disease, unspecified whether esophagitis present Bilateral lower extremity edema Type 2 diabetes mellitus with complication, with long-term current use of insulin ([facility]) Tobacco user Tobacco use disorder Mixed hyperlipidemia ([facility]) Mixed hyperlipidemia Gout, unspecified cause, unspecified chronicity, unspecified site Vitamin deficiency Unspecified vitamin deficiency Gastro-esophageal reflux disease without esophagitis Edema, unspecified Edema Hyperlipidemia, unspecified ([facility]) Encounter for smoking cessation counseling Venous ulcer of right leg ([facility]) Antibiotic-induced yeast infection Chronic obstructive pulmonary disease, unspecified documented in this encounter [facility] HealthcareEvaluation note* Diagnosis Obstructive sleep apnea- Primary Obstructive sleep apnea (adult) (pediatric) Pulmonary emphysema, unspecified emphysema type ([facility]) Primary hypertension ([facility]) Unspecified essential hypertension Type 2 diabetes mellitus with complication, with long-term current use of insulin ([facility]) Anxiety and depression ([facility]) Bilateral lower extremity edema Pulmonary emphysema, unspecified emphysema type ([facility])- Primary Primary hypertension ([facility]) Unspecified essential hypertension Class 3 severe obesity with serious comorbidity and body mass index (BMI) of 50.0 to 59.9 in adult, unspecified obesity type Obstructive sleep apnea Obstructive sleep apnea (adult) (pediatric) Pulmonary hypertension ([facility]) Other chronic pulmonary heart diseases Tobacco user Tobacco use disorder Cardiomegaly Primary hypertension ([facility])- Primary Unspecified essential hypertension Gastroesophageal reflux disease, unspecified whether esophagitis present Type 2 diabetes mellitus with complication, with long-term current use of insulin ([facility]) Mixed hyperlipidemia ([facility]) Mixed hyperlipidemia Tobacco user Tobacco use disorder Encounter for screening mammogram for malignant neoplasm of breast Chronic obstructive pulmonary disease, unspecified Other specified chronic obstructive pulmonary disease Anxiety and depression ([facility]) Edema, unspecified Edema Hyperlipidemia, unspecified ([facility]) Diabetic polyneuropathy associated with type 2 diabetes mellitus ([facility]) Gout, unspecified cause, unspecified chronicity, unspecified site Non-seasonal allergic rhinitis, unspecified trigger Bilateral lower extremity edema COPD exacerbation ([facility]) Obstructive chronic bronchitis with exacerbation Pulmonary emphysema, unspecified emphysema type ([facility]) Venous insufficiency Unspecified venous (peripheral) insufficiency Candidiasis of breast COPD exacerbation ([facility])- Primary Obstructive chronic bronchitis with exacerbation Pulmonary hypertension ([facility]) Other chronic pulmonary heart diseases Class 3 severe obesity with serious comorbidity and body mass index (BMI) of 50.0 to 59.9 in adult, unspecified obesity type Encounter for subsequent annual wellness visit (AWV) in Medicare patient- Primary Type 2 diabetes mellitus with unspecified complications Pulmonary emphysema, unspecified emphysema type ([facility]) Moderate persistent asthma without complication (CMS/HCC) Primary hypertension ([facility]) Unspecified essential hypertension Type 2 diabetes mellitus with complication, with long-term current use of insulin ([facility]) Class 3 severe obesity with serious comorbidity and body mass index (BMI) of 50.0 to 59.9 in adult, unspecified obesity type Tobacco user Tobacco use disorder Other headache syndrome Malignant neoplasm of cervix uteri, unspecified Other specified disorders of adrenal gland Major depressive disorder, single episode, mild (HCC) ([facility]) Major depressive disorder, single episode, mild 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 exposed Chronic respiratory failure, unspecified whether with hypoxia or hypercapnia Disorder of adrenal gland, unspecified Non-pressure chronic ulcer of other part of right lower leg limited to breakdown of skin ([facility]) Non-recurrent acute suppurative otitis media of left ear without spontaneous rupture of tympanic membrane Primary hypertension ([facility])- Primary Unspecified essential hypertension Insomnia Insomnia, unspecified Type 2 diabetes mellitus with complication, with long-term current use of insulin ([facility]) Non-seasonal allergic rhinitis, unspecified trigger Type 2 diabetes mellitus with unspecified complications Anxiety and depression ([facility]) Gastro-esophageal reflux disease without esophagitis Edema, unspecified Edema Diabetic polyneuropathy associated with type 2 diabetes mellitus ([facility]) Chronic obstructive pulmonary disease, unspecified Pulmonary emphysema, unspecified emphysema type ([facility]) Bilateral lower extremity edema Tobacco user Tobacco use disorder Hyperpigmentation of skin Other dyschromia Primary hypertension (CMS/HCC)- Primary Unspecified essential hypertension Diabetic polyneuropathy associated with type 2 diabetes mellitus (CMS/[facility]) Pulmonary emphysema, unspecified emphysema type (CMS/HCC) Critical limb ischemia of right lower extremity ([facility]) PAD (peripheral artery disease) ([facility]) Unspecified peripheral vascular disease Gastroesophageal reflux disease, unspecified whether esophagitis present Bilateral lower extremity edema Venous ulcer of right leg ([facility]) Type 2 diabetes mellitus with complication, with long-term current use of insulin ([facility]) Tobacco user Tobacco use disorder Encounter for smoking cessation counseling Kidney stone Calculus of kidney Adrenal mass 1 cm to 4 cm in diameter ([facility]) Radiculopathy, lumbar region Thoracic or lumbosacral neuritis or radiculitis, unspecified Non-seasonal allergic rhinitis, unspecified trigger Type 2 diabetes mellitus with unspecified complications Anxiety and depression ([facility])- Primary Morbid (severe) obesity due to excess calories ([facility]) Body mass index (BMI) 50.0-59.9, adult ([facility]) Malignant neoplasm of cervix uteri, unspecified Diabetic polyneuropathy associated with type 2 diabetes mellitus ([facility]) Chronic diastolic heart failure ([facility]) Chronic diastolic heart failure Primary hypertension ([facility]) Unspecified essential hypertension 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 Gastroesophageal reflux disease, unspecified whether esophagitis present Bilateral lower extremity edema Type 2 diabetes mellitus with complication, with long-term current use of insulin ([facility]) Tobacco user Tobacco use disorder Mixed hyperlipidemia ([facility]) Mixed hyperlipidemia Gout, unspecified cause, unspecified chronicity, unspecified site Vitamin deficiency Unspecified vitamin deficiency Gastro-esophageal reflux disease without esophagitis Edema, unspecified Edema Hyperlipidemia, unspecified ([facility]) Encounter for smoking cessation counseling Venous ulcer of right leg ([facility]) Antibiotic-induced yeast infection Primary hypertension ([facility] [place])- Primary Unspecified essential hypertension Diabetic polyneuropathy associated with type 2 diabetes mellitus ([facility]) Chronic diastolic heart failure ([facility]) Chronic diastolic heart failure Bilateral lower extremity edema Morbid (severe) obesity due to excess calories ([facility]) Type 2 diabetes mellitus with complication, with long-term current use of insulin ([facility]) Anxiety and depression ([facility]) Cigarette nicotine dependence without complication Encounter for screening mammogram for malignant neoplasm of breast Insomnia Insomnia, unspecified Non-seasonal allergic rhinitis, unspecified trigger Type 2 diabetes mellitus with unspecified complications Vitamin D deficiency, unspecified Gastro-esophageal reflux disease without esophagitis PAD (peripheral artery disease) ([facility]) Unspecified peripheral vascular disease Gastroesophageal reflux disease, unspecified whether esophagitis present Venous ulcer of right leg ([facility]) documented in this encounter [facility] HealthcareEvaluation [...] to 59.9 in adult, unspecified obesity type ([facility]) Obstructive sleep apnea Obstructive [...] 59.9 in adult, unspecified obesity type ([facility] [place]) Encounter for subsequent annual wellness visit (AWV) [...] to 59.9 in adult, unspecified obesity type ([facility]) Tobacco user Tobacco use [...] Critical limb ischemia of right lower extremity ([facility]) PAD (peripheral artery disease) [...] ([facility]) Body mass index (BMI) 50.0-59.9, adult ([facility] [place]) Malignant neoplasm of cervix uteri, unspecified ([facility] Morbid (severe) obesity due to excess calories ([facility]) Type 2 diabetes mellitus [...] Morbid (severe) obesity due to excess calories ([facility]) Type 2 diabetes mellitus with complication, with long-term current use of insulin ([facility]) Anxiety and depression Fever, unspecified fever cause Hyperlipidemia, unspecified Tobacco user Tobacco use disorder Encounter for smoking cessation counseling documented in this encounter [facility] HealthcareEvaluation note* Diagnosis Obstructive sleep apnea- Primary Obstructive sleep apnea (adult) (pediatric) Pulmonary emphysema, unspecified emphysema type ([facility]) Primary hypertension ([facility]) Unspecified essential hypertension Type 2 diabetes mellitus with complication, with long-term current use of insulin ([facility]) Anxiety and depression ([facility]) Bilateral lower extremity edema Pulmonary emphysema, unspecified emphysema type ([facility])- Primary Primary hypertension ([facility]) Unspecified essential hypertension Class 3 severe obesity with serious comorbidity and body mass index (BMI) of 50.0 to 59.9 in adult, unspecified obesity type Obstructive sleep apnea Obstructive sleep apnea (adult) (pediatric) Pulmonary hypertension ([facility]) Other chronic pulmonary heart diseases Tobacco user Tobacco use disorder Cardiomegaly Primary hypertension ([facility])- Primary Unspecified essential hypertension Gastroesophageal reflux disease, unspecified whether esophagitis present Type 2 diabetes mellitus with complication, with long-term current use of insulin ([facility]) Mixed hyperlipidemia ([facility]) Mixed hyperlipidemia Tobacco user [...] complication, with long-term current use of insulin ([facility]) Class 3 severe obesity [...] spontaneous rupture of tympanic membrane Primary hypertension ([facility])- Primary Unspecified essential hypertension [...] Hyperpigmentation of skin Other dyschromia Primary hypertension ([facility])- Primary Unspecified essential hypertension Diabetic polyneuropathy associated with type 2 diabetes mellitus ([facility]) Pulmonary emphysema, unspecified emphysema type ([facility]) Critical limb ischemia of right lower extremity ([facility]) PAD (peripheral artery disease) ([facility]) Unspecified peripheral vascular disease Gastroesophageal reflux disease, unspecified whether esophagitis present Bilateral lower extremity edema Venous ulcer of right leg ([facility]) Type 2 diabetes mellitus with complication, with long-term current use of insulin ([facility]) Tobacco user Tobacco use disorder Encounter for smoking cessation counseling Kidney stone Calculus of kidney Adrenal mass 1 cm to 4 cm in diameter ([facility]) Radiculopathy, lumbar region Thoracic or lumbosacral neuritis or radiculitis, unspecified Non-seasonal allergic rhinitis, unspecified trigger Type 2 diabetes mellitus with unspecified complications Anxiety and depression ([facility])- Primary Morbid (severe) obesity due to excess calories ([facility]) Body mass index (BMI) 50.0-59.9, adult ([facility]) Malignant neoplasm of cervix uteri, unspecified Diabetic polyneuropathy associated with type 2 diabetes mellitus ([facility]) Chronic diastolic heart failure ([facility]) Chronic diastolic heart failure Primary hypertension ([facility] [place]) Unspecified essential hypertension 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 Gastroesophageal reflux disease, unspecified whether esophagitis present Bilateral lower extremity edema Type 2 diabetes mellitus with complication, with long-term current use of insulin ([facility]) Tobacco user Tobacco use disorder Mixed hyperlipidemia ([facility]) Mixed hyperlipidemia Gout, unspecified cause, unspecified chronicity, unspecified site Vitamin deficiency Unspecified vitamin deficiency Gastro-esophageal reflux disease without esophagitis Edema, unspecified Edema Hyperlipidemia, unspecified ([facility]) Encounter for smoking cessation counseling Venous ulcer of right leg ([facility]) Antibiotic-induced yeast infection Primary hypertension ([facility])- Primary Unspecified essential hypertension Diabetic polyneuropathy associated with type 2 diabetes mellitus ([facility]) Chronic diastolic heart failure ([facility]) Chronic diastolic heart failure Bilateral lower extremity edema Morbid (severe) obesity due to excess calories ([facility]) Type 2 diabetes mellitus with complication, with long-term current use of insulin ([facility]) Anxiety and depression ([facility] [place]) Cigarette nicotine dependence without complication Encounter for screening mammogram for malignant neoplasm of breast Insomnia Insomnia, unspecified Non-seasonal allergic rhinitis, unspecified trigger Type 2 diabetes mellitus with unspecified complications Vitamin D deficiency, unspecified Gastro-esophageal reflux disease without esophagitis PAD (peripheral artery disease) ([facility]) Unspecified peripheral vascular disease Gastroesophageal reflux disease, unspecified whether esophagitis present Venous ulcer of right leg ([facility]) Cellulitis of left lower extremity- Primary COPD exacerbation ([facility]) Obstructive chronic bronchitis with exacerbation Primary hypertension ([facility]) Unspecified essential hypertension Pulmonary hypertension ([facility]) Other chronic pulmonary heart diseases Morbid (severe) obesity due to excess calories ([facility]) Type 2 diabetes mellitus with complication, with long-term current use of insulin ([facility]) Anxiety and depression ([facility]) Fever, unspecified fever cause [...] to 59.9 in adult, unspecified obesity type ([facility]) Obstructive sleep apnea Obstructive [...] 59.9 in adult, unspecified obesity type ([facility]) Encounter for subsequent annual wellness visit (AWV) [...] 59.9 in adult, unspecified obesity type ([facility]) Tobacco user Tobacco use disorder Other headache [...] Critical limb ischemia of right lower extremity ([facility]) PAD (peripheral artery disease) [...] Morbid (severe) obesity due to excess calories ([facility]) Body mass index (BMI) 50.0-59.9, adult ([facility]) Malignant neoplasm of cervix [...] Morbid (severe) obesity due to excess calories ([facility]) Type 2 diabetes mellitus [...] Morbid (severe) obesity due to excess calories ([facility] [facility] Type 2 diabetes mellitus [...] Morbid (severe) obesity due to excess calories ([facility]) Type 2 diabetes mellitus with hyperglycemia, with long-term current use of insulin ([facility]) documented in this encounter [facility] [...] to 59.9 in adult, unspecified obesity type ([facility]) Obstructive sleep apnea Obstructive [...] 59.9 in adult, unspecified obesity type ([facility] Encounter for subsequent annual wellness visit (AWV) [...] 59.9 in adult, unspecified obesity type ([facility]) Tobacco user Tobacco use disorder Other headache [...] Critical limb ischemia of right lower extremity ([facility]) PAD (peripheral artery disease) [...] Morbid (severe) obesity due to excess calories ([facility]) Body mass index (BMI) 50.0-59.9, adult ([facility]) Malignant neoplasm of cervix [...] Morbid (severe) obesity due to excess calories ([facility]) Type 2 diabetes mellitus [...] Morbid (severe) obesity due to excess calories ([facility]) Type 2 diabetes mellitus [...] [facility] Encounter for dietary consultation- Primary Type 2 [...] [facility] documented in this encounter [facility] [...] 59.9 in adult, unspecified obesity type ([facility]) Obstructive sleep apnea Obstructive sleep apnea (adult) [...] 59.9 in adult, unspecified obesity type ([facility]) Encounter for subsequent annual wellness visit (AWV) [...] 59.9 in adult, unspecified obesity type ([facility]) Tobacco user Tobacco use disorder Other headache [...] limb ischemia of right lower extremity ([facility]) PAD (peripheral artery disease) Unspecified peripheral vascular [...] ([facility]) Body mass index (BMI) 50.0-59.9, adult ([facility]) Malignant neoplasm of cervix uteri, unspecified ([facility] [...] Morbid (severe) obesity due to excess calories ([facility]) Type 2 diabetes mellitus with complication, [...] Morbid (severe) obesity due to excess calories ([facility]) Tobacco user Tobacco use [...] History sepsis 2010 Hospitalization History SEE ABOVE [employer] Other Hospital course Narrative No data available for this section [facility] Wilfredo progress note No data available for this section [facility] reason for referral (narrative) , Referral to Dr. Cortés Referred by: REGLA PHIPPS, Elbert Joya [facility] Advance Directives No Advanced Directives Records FoundDocuments on File Type Date Recorded Patient Dimension Quarry Supervisor Expl anation Advance Directives and Living Will Power of Supervisor Irrigation Summary Purpose Family History No Family History Records FoundNo Family History Records FoundNo Family History Records FoundNo Family History Records Found No data available for this section No Family History Records FoundNo Family History Records FoundNo Family History Records Found Additional Source Comments INFORMATION SOURCE (unrecogn ized section and content) DATE CREATED AUTHOR 10/30/2019 [facility] DATE CREATED AUTHOR AUTHOR'S ORGANIZ ATION 09/15/2020 [facility] DATE CREATED AUTHOR AUTHOR'S ORGANIZ ATION 12/19/2022 [facility] DATE CREATED AUTHOR AUTHOR'S ORGANIZ ATION 06/03/2024 [facility] DATE CREATED AUTHOR AUTHOR'S ORGANIZ ATION 01/30/2025 [facility] DATE CREATED AUTHOR AUTHOR'S ORGANIZ ATION 02/06/2025 [facility] DATE CREATED AUTHOR AUTHOR'S ORGANIZ ATION 03/25/2025 [facility] Care Team (unrecognized sect ion and content) Quill Picking 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 Relationship Specialty Start Date End Date Ty Amin MD PCP - General Family Medicine 01/05/23 Quill Picking 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 Relationship Specialty Start Date End Date Ty Amin MD PCP - General Family Medicine 01/05/23 Quill Picking 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 Relationship Specialty Start Date End Date Ty Amin MD [address] [place] [address] PCP - General Family Medicine 09/20/23 Mckayla Blas NP [address] [place] [address] PCP - [facility] 09/07/23 09/05/90 Mckayla Blas NP [address] [place] [address] Nurse Practitioner Family Medicine 09/20/23 Quill Picking 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 Relationship Specialty Start Date End Date Ty Amin MD [address] [place] [address] PCP - General Family Medicine 09/20/23 Mckayla Blas NP [address] [place] [address] PCP - [facility] 09/07/23 09/05/90 Mckayla Blas NP [address] [place] [address] Nurse Practitioner Family Medicine 09/20/23 Quill Picking 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 Relationship Specialty Start Date End Date Ty Amin MD [address] [place] [address] PCP - General Family Medicine 09/20/23 Mckayla Blas NP [address] [place] [address] PCP [facility] 09/07/23 09/05/90 Mckayla Blas NP [address] [place] [address] Nurse Practitioner Family Medicine 09/20/23 Quill Picking 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 Relationship Specialty Start Date End Date Ty Amin MD [address] [place] [address] PCP - General Family Medicine 09/20/23 Mckayla Blas NP [address] [place] [address] PCP - [facility] 09/07/23 09/05/90 Mckayla Blas NP [address] [place] [address] Nurse Practitioner Family Medicine 09/20/23 Quill Picking 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 Relationship Specialty Start Date End Date Ty Amin MD [address] [place] [address] PCP - General Family Medicine 09/20/23 Mckayla Blas NP [address] [place] [address] PCP - [facility] 09/07/23 09/05/90 Mckayla Blas NP [address] [place] [address] Nurse Practitioner Family Medicine 09/20/23 Quill Picking 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 Relationship Specialty Start Date End Date Ty Amin MD [address] [place] [address] PCP - General Family Medicine 09/20/23 Mckayla Blas NP [address] [place] [address] PCP [facility] 09/07/23 09/05/90 Mckayla Blas NP [address] [place] [address] Nurse Practitioner Family Medicine 09/20/23 Quill Picking 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 Relationship Specialty Start Date End Date Ty Amin MD [address] [place] [address] PCP - General Family Medicine 09/20/23 Mckayla Blas NP [address] [place] [address] PCP - [facility] 09/07/23 09/05/90 Mckayla Blas NP [address] [place] [address] Nurse Practitioner Family Medicine 09/20/23 Quill Picking 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 Relationship Specialty Start Date End Date Ty Amin MD [address] [place] [address] PCP - General Family Medicine 09/20/23 Mckayla Blas NP [address] [place] [address] PCP [facility] 09/07/23 09/05/90 Mckayla Blas NP [address] [place] [address] Nurse Practitioner Family Medicine 09/20/23 Quill Picking 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 Relationship Specialty Start Date End Date Ty Amin MD [address] [place] [address] PCP - General Family Medicine 09/20/23 Mckayla Blas NP [address] [place] [address] PCP - [facility] 09/07/23 09/05/90 Mckayla Blas NP [address] [place] [address] Nurse Practitioner Family Medicine 09/20/23 Quill Picking 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 Relationship Specialty Start Date End Date Ty Amin MD [address] [place] [address] PCP - General Family Medicine 09/20/23 Mckayla Blas NP [address] [place] [address] PCP - [facility] 09/07/23 09/05/90 Mckayla Blas NP [address] [place] [address] Nurse Practitioner Family Medicine 09/20/23 Quill Picking 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 Relationship Specialty Start Date End Date Ty Amin MD [address] [place] [address] PCP - General Family Medicine 09/20/23 Mckayla Blas NP [address] [place] [address] PCP [facility] 09/07/23 09/05/90 Mckayla lBas NP [address] [place] [address] Nurse Practitioner Family Medicine 09/20/23 Quill Picking 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 Relationship Specialty Start Date End Date Ty Amin MD [address] [place] [address] PCP - General Family Medicine 09/20/23 Mckayla Blas NP [address] [place] [address] PCP - [facility] 09/07/23 09/05/90 Mckayla Blas NP [address] [place] [address] Nurse Practitioner Family Medicine 09/20/23 Quill Picking 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 Relationship Specialty Start Date End Date Ty Amin MD [address] [place] [address] PCP - General Family Medicine 09/20/23 Mckayla Blas NP [address] [place] [address] PCP [facility] 09/07/23 09/05/90 Mckayla Blas NP [address] [place] [address] Nurse Practitioner Family Medicine 09/20/23 Quill Picking 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 Relationship Specialty Start Date End Date Ty Amin MD [address] [place] [address] PCP - General Family Medicine 09/20/23 Mckayla Blas NP [address] [place] [address] PCP - [facility] 09/07/23 09/05/90 Mckayla Blas NP [address] [place] [address] Nurse Practitioner Family Medicine 09/20/23 Quill Picking 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 Relationship Specialty Start Date End Date Ty Amin MD [address] [place] [address] PCP - General Family Medicine 09/20/23 Mckayla Blas NP [address] [place] [address] PCP - [facility] 09/07/23 09/05/90 Mckayla Blas NP [address] [place] [address] Nurse Practitioner Family Medicine 09/20/23 Quill Picking 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 Relationship Specialty Start Date End Date Ty Amin MD [address] [place] [address] PCP - General Family Medicine 09/20/23 Mckayla Blas NP [address] [place] [address] PCP [facility] 09/07/23 09/05/90 Mckayla Blas NP [address] [place] [address] Nurse Practitioner Family Medicine 09/20/23 Quill Picking 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 Relationship Specialty Start Date End Date Ty Amin MD [address] [place] [address] PCP - General Family Medicine 09/20/23 Mckayla Blas NP [address] [place] [address] PCP - [facility] 09/07/23 09/05/90 Mckayla Blas NP [address] [place] [address] Nurse Practitioner Family Medicine 09/20/23 Quill Picking 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 Relationship Specialty Start Date End Date Ty Amin MD [address] [place] [address] PCP - General Family Medicine 09/20/23 Mckayla Blas NP [address] [place] [address] PCP [facility] 09/07/23 09/05/90 Mckayla Blas NP [address] [place] [address] Nurse Practitioner Family Medicine 09/20/23 Quill Picking 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 Relationship Specialty Start Date End Date Ty Amin MD [address] [place] [address] PCP - General Family Medicine 09/20/23 Mckayla Blas NP [address] [place] [address] PCP - [facility] 09/07/23 09/05/90 Mckayla Blas NP [address] [place] [address] Nurse Practitioner Family Medicine 09/20/23 Quill Picking 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 Relationship Specialty Start Date End Date Ty Amin MD [address] [place] [address] PCP - General Family Medicine 09/20/23 Mckayla Blas NP [address] [place] [address] [facility] 09/07/23 09/05/90 Mckayla Blas NP [address] [place] [address] Nurse Practitioner Family Medicine 09/20/23 Quill Picking 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 Relationship Specialty Start Date End Date Ty Amin MD [address] [place] [address] PCP - General Family Medicine 09/20/23 Mckayla Blas NP [address] [place] [address] Nurse Practitioner Family Medicine 09/20/23 Quill Picking 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 Relationship Specialty Start Date End Date Ty Amin MD [address] [place] [address] PCP - General Family Medicine 09/20/23 Mckayla Blas NP [address] [place] [address] Nurse Practitioner Family Medicine 09/20/23 Quill Picking 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 Relationship Specialty Start Date End Date Ty Amin MD [address] [place] [address] PCP - General Family Medicine 09/20/23 Mckayla Blas NP [address] [place] [address] Nurse Practitioner Family Medicine 09/20/23 Quill Picking 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 Relationship Specialty Start Date End Date Ty Amin MD [address] [place] [address] PCP - General Family Medicine 09/20/23 Mckayla Blas NP [address] [place] [address] Nurse Practitioner Family Medicine 09/20/23 Quill Picking 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 Relationship Specialty Start Date End Date Ty Amin MD [address] [place] [address] PCP - General Family Medicine 09/20/23 Mckayla Blas NP [address] [place] [address] Nurse Practitioner Family Medicine 09/20/23 REASON FOR [...] BE BASED ON THE PRIMARY CLINICAL RECORDS. [facility] [employer] [facility]. provides no warranty or guarantee of the accuracy or completeness of information in this document.
== END 2025-03-30 08:03 | disposition home or self-care (01) ==
LOC: WC 03-31 08:03
PROVIDERS: PCP Nurse Practitioner; Visit Provider Physician Assistant
DX: I87.311 Chronic venous hypertension (idiopathic) with ulcer of right lower extremity (principal); L97.812 Non-pressure chronic ulcer of other part of right lower leg with fat layer exposed
CPT/HCPCS: 29581

== ENCOUNTER 2025-04-02 10:18 | Outpatient (OUT) | payer MEDICARE, SELFPAY ==
--- OUTSIDE RECORDS SUMMARY | 2024-12-02 05:30 | XMS_ITS ---
Author Organization The [facility] in [place] Address [address] [place] [address] Care Team Providers Care Bacteriology Research Assistant Name Role Phone Mckayla Blas CNP Primary Care Provider Armando Limon Unavailable [phone] REASON FOR VISIT 1YEAR-COPD Encounters Encounter Location Date Provider Diagnosis Pulmonary Medicine [place] [address] [place] [address] 12/02/2024 Armando Yañez Plan Of Treatment No Information Progress Notes * Mitzi MACAIS LDOB:[birth year] (54 yo F)Acc No.[id number]:12/02/2024 UNLOCKED PROGRESS NOTE Follow Up Patient: Mitzi COX Provider: Tray Yañez DO :1970 A ge:54 Y S ex:Female Date:12/02/2024 Address:[address] [place], [place] [address] Pcp:Mckayla Blas CNP Subjective: * Chief Complaints: * 1 . 1YEAR-COPD. * Medical History: Objective: * Vitals: Assessment: Plan: * Treatment: * * Electronic signature of Radha Yañez DO on 04/02/2025 at 10:21 AM EDT Sign off status: Pending Visit Status: N /S N/C (No Show/No Charge) * Provider: Tray Yañez DO Date: 0 12/02/2024 Generated for Vanessa ocampo/Luis/eTransmitting on: 0 04/02/2025 10:21 AM EDT
--- OUTSIDE RECORDS SUMMARY | 2025-04-02 10:20 | XMS_ITS | Encounter Summary ---
Author Organization [email or web address] [facility] tem Address [id number] [address] [place] [address] Care Team Providers Care Director Food Safety Name Role Phone JuanjoseMckayla carcamo Krystal PEREZN-VEGETABLE HANDLER Primary Care Provider Encounter Details Date Type Department Care Team (Late st Contact Info) Description 05/31/2020 Orders Only [facility] [address] [place] [address] External, Scanning Provider Social History Tobacco Use [...] filedocumented in this encounter Care Teams Director Food Safety Relationship Specialty Start Date End Date Mckayla Blas, RN SOCIAL WORK-VEGETABLE HANDLER [address] [place] [address] PCP - General Nurse Practitioner 09/25/18 documented as of this encounter
--- OUTSIDE RECORDS SUMMARY | 2025-04-02 10:21 | XMS_ITS | Encounter Summary ---
Author Organization [facility] Address [address] [place] [address] Care Team Providers Care Relocation Manager Name Role Phone Ty Amin MD Primary Care Provider [phone] Ty Amin MD Primary Care Provider [phone] Mckayla Blas COOLER OPERATOR Unavailable [phone] Mckayla Blas COOLER OPERATOR Unavailable [phone] Encounter Details Date Type Department Care Team (Late st Contact Info) Description 09/12/2023 Orders Only [facility] [address] [place] [address] Social History Tobacco Use Types Packs/Day Years [...] How often do you attend chur or druze services? 1 to 4 times per year [...] [facility] [address] [place] [address] Rain Souza MD [address] [place] [address] documented as of this encounter Procedures Procedure Name Priority Date/Time Associated Diagnosis Comments XR CHEST 1 VIEW Routine 09/11/2023 4:52 PM EST documented in this encounter Results * XR chest 1 view (09/11/2023 4:52 PM EST) Anatomical Region Laterality Modality Chest Radiographic Kalani ging [facility] IMG XR PROCEDURES Final Result documented in this encounter Visit Diagnoses Not on filedocumented in this encounter Care Teams Relocation Manager Relationship Specialty Start Date End Date Ty Amin MD PCP - General Family Medicine 01/05/23 09/19/23 Ty Amin MD PCP - General Family Medicine 09/20/23 Mckayla Blas NP [address] [place] [address] PCP - [facility] 09/07/23 01/11/25 Mckayla Blas NP Nurse Practitioner Family Medicine 09/20/23 documented as of this encounter
--- OUTSIDE RECORDS SUMMARY | 2025-04-02 10:21 | XMS_ITS | Encounter Summary ---
Author Organization [facility] Address [address] [place] [address] Care Team Providers Care Bottler Name Role Phone Mckayla Blas MD Primary Care Provider [phone] Encounter Details Date Type Department Care Team (Late st Contact Info) Description 02/04/2025 Results [facility] [address] [facility] [place] [address] Karma Chatterjee CNP [address] [place] [address] Complete Echo (TTE) w/wo Imaging Agent, Strain, [...] on filedocumented in this encounter Care Teams Bottler Relationship Specialty Start Date End Date Mckayla Blas MD [address] [place] [address] PCP - General Nurse Practitioner 11/13/23 documented as of this encounter
--- OUTSIDE RECORDS SUMMARY | 2025-04-02 10:21 | XMS_ITS | Encounter Summary ---
Author Organization [facility] Address [address] [place] [address] Care Team Providers Care Digital Production Operator Name Role Phone Ty Amin MD Primary Care Provider [phone] Mckayla Blas PANEL MAKER Unavailable [phone] Mckayla Blas NP Unavailable [phone] Encounter Details Date Type Department Care Team (Late st Contact Info) Description 01/07/2025 Abstract [facility] [address] [place] [address] Mckayla Blas NP [address] [place] [address] Social History Tobacco Use Types Packs/Day Years [...] you attend chur ch or amish services? More than 4 times per year [...] [facility] [address] [place] [address] Rain Souza MD [address] [place] [address] documented as of this encounter Visit Diagnoses Not on filedocumented in this encounter Additional Health Concerns Assessment Noted Time PHQ-9 Depression Total Score: 3 01/17/20 24 10:08 AM EDT documented as of this encounter Care Teams Digital Production Operator Relationship Specialty Start Date End Date Ty Amin MD PCP - General Family Medicine 09/20/23 Mckayla Blas NP [address] [place] [address] PCP - [facility] 09/07/23 01/11/25 Mckayla Blas NP Nurse Practitioner Family Medicine 09/20/23 documented as of this encounter
--- OUTSIDE RECORDS SUMMARY | 2025-04-02 10:21 | XMS_ITS | Encounter Summary ---
Author Organization [facility] Address [id number] [address] [place] [address] Care Team Providers Care Per Diem Rn Name Role Phone JuanjoseMckayla carcamo Krystal ASSISTANT FINANCE DIRECTOR-RETAIL SALES REPRESENTATIVE Primary Care Provider Encounter Details Date Type Department Care Team (Late st Contact Info) Description 06/11/2020 Orders Only [facility] [address] [place] [address] External, Scanning Provider Social History Tobacco Use [...] on filedocumented in this encounter Care Teams Per Diem Rn Relationship Specialty Start Date End Date Mckayla Blas, ASSISTANT FINANCE DIRECTOR-RETAIL SALES REPRESENTATIVE [address] [place] [address] PCP - General Nurse Practitioner 09/25/18 documented as of this encounter
--- OUTSIDE RECORDS SUMMARY | 2025-04-02 10:21 | XMS_ITS | Encounter Summary ---
Author Organization [facility] Address [address] [place] [address] Care Team Providers Care Relay Shop Supervisor Name Role Phone Ty Amin MD Primary Care Provider [phone] Mckayla Blas NP Unavailable [phone] Mckayla Blas NP Unavailable [phone] Encounter Details Date Type Department Care [...] [facility] [address] [place] [address] Rain Souza MD [address] [place] [address] documented as of this encounter Procedures Procedure Name Priority Date/Time Associated Diagnosis Comments SEGMENTAL BLOOD PRESSURE 04/24/2024 11:20 AM EDT documented in this encounter Results * SEGMENTAL BLOOD PRESSURE (04/24/2024 11:20 AM EDT) Anatomical Region Laterality Modality Radiographic Kalani ging 04/24/2024 11:2 0 AM EDT Narrative 04/24/2024 11:23 AM EDT The [address] [address] Vein Report Signed Patient: MITZI MACIAS MR#: [id number] : 1970 Acct:[id number] Age/Sex: 53 / F ADM Date: 04/24/24 Loc: [facility] Attending Dr: Rafael Gongora Ordering Physician: Rafael Gongora Date of Service: 04/24/24 Procedure(s): VC SEGMENTAL PRESSURES Accession Number(s): [id number] cc: Mckayla Blas NP; Rafael Gongora The [place] [address] Patient Name: MITZI MACIAS MRN: [id number] date: 1970 Sex: F Assigned Patient Location: VC Current Patient Location: VC Accession/Order Number: [id number] Exam Date: 04/24/2024 10:25 Report Date: 04/24/2024 11:20 At the request of: RAFAEL GONGORA Procedure: VC SEGMENTAL PRESSURES EXAM: VC SEGMENTAL PRESSURES HISTORY: R09.89 COMPARISON: None. FINDINGS: Segmental pressures presented as follows (right, left) in mmHg. Brachial: 169, 166 Upper thigh: Not obtained Lower thigh: 129, 119 Calf: 124, 106 DPA: 108, 105 CLINIC DIRECTOR: 100, 91 1st Toe: 124, 142 ISABELLE: [...] Signed By: 04/24/24 1123 DD/ 1120 TD/TT: Fitness Consultant: Procedure Note Radiology, Radiologist, MD - 04/24/2024 [place] [address] Vein Report Signed Patient: MITZI MACIAS LMR#: [id number] : 1970Acct:[id number] Age/Sex: 53 / FADM Date: 04/24/24 Loc: [facility] Attending Dr: Rafael Gongora Ordering Physician: Rafael Gongora Date of Service: 04/24/24 Procedure(s): VC SEGMENTAL PRESSURES Accession Number(s): [id number] cc: Mckayla Blas NP; Rafael Gongora [place] [id number] Patient Name: MITZI MACIAS MRN: [facility]:[id number] date: 1970 Sex: F Assigned Patient Location: VC Current Patient Location: VC Accession/Order Number: [id number] Exam Date: 04/24/2024 10:25 Report Date: 04/24/2024 11:20 At the request of: RAFAEL GONGORA Procedure: VC SEGMENTAL PRESSURES EXAM: VC SEGMENTAL PRESSURES HISTORY: R09.89 COMPARISON: None. FINDINGS: Segmental pressures presented as follows (right, left) in mmHg. Brachial: 169, 166 Upper thigh: Not obtained Lower thigh: 129, 119 Calf: 124, 106 DPA: 108, 105 CLINIC DIRECTOR: 100, 91 1st Toe: 124, 142 ISABELLE: [...] M.D. Signed By:04/24/24 1123 DD/ 1120 TD/TT: Fitness Consultant: us Generic External Data Provider IMG XR PROCEDURES Final Result documented in this encounter Visit Diagnoses Not on filedocumented in this encounter Additional Health Concerns Assessment Noted Time PHQ-9 Depression Total Score: 3 01/17/20 24 10:08 AM EDT documented as of this encounter Care Teams Relay Shop Supervisor Relationship Specialty Start Date End Date Ty Amin MD PCP - General Family Medicine 09/20/23 Mckayla Blas NP [address] [place] [address] PCP - [facility] 09/07/23 01/11/25 Mckayla Blas NP Nurse Practitioner Family Medicine 09/20/23 documented as of this encounter
--- OUTSIDE RECORDS SUMMARY | 2025-04-02 10:21 | XMS_ITS | Clinical Summary ---
Author Organization [employer] Address [id number] [address] [place] [address] Care Team Providers Care Sap Security Consultant Name Role Phone Wan Mckayla Krystal PEREZN-HI RANGER OPERATOR Primary Care Provider Allergies No known [...] Health Maintenance Due Date Last Done Comments Statin Use: Cardiovascular 1970 Depression Screening 1982 Tobacco Screening 1982 Adult BMI Follow Up Plan 1988 DTaP,Tdap and Td Vaccines (1 - Tdap) 1989 Pap Smear 1991 Zoster (Shingles) Vaccine (1 of 2) 2020 COVID-19 Vaccine (4 - 2024-2 6 season) 2025 07/19/2021, 10/28/2020, 10/08/2020 Influenza Vaccine 03/09/2025 05/18/2023, , 05/10/2016, Additional history exists Adult BMI Screening 06/19/2025 06/19/2024 Medical Devices Not on file Insurance MEDICAID [place] [employer] MEDICARE Care Teams Sap Security Consultant Relationship Specialty Start Date End Date Mckayla Blas, ROUGHENER-HI RANGER OPERATOR [address] [place] [address] PCP - General Nurse Practitioner 09/25/18
--- OUTSIDE RECORDS SUMMARY | 2025-04-02 10:21 | XMS_ITS | Encounter Summary ---
Author Organization [facility] Address [address] [place] [address] Care Team Providers Care Delivery Engineer Name Role Phone Ty Amin MD Primary Care Provider [phone] Mckayla Blas COIN MACHINE COLLECTOR Unavailable [phone] Mckayla Blas NP Unavailable [phone] Encounter Details Date Type Department Care Team (Late st Contact Info) Description 01/07/2025 Abstract [facility] [address] [place] [address] Mckayla Blas NP [address] [facility] [address] Social History Tobacco Use Types Packs/Day Years [...] you attend chur ch or religion services? More than 4 times per year [...] time in the past 12 m [facility], were you homeless or living in [...] [facility] [address] [place] [address] Rain Souza MD [address] [place] [address] documented as of this encounter Visit Diagnoses Not on filedocumented in this encounter Additional Health Concerns Assessment Noted Time PHQ-9 Depression Total Score: 3 01/17/20 24 10:08 AM EDT documented as of this encounter Care Teams Delivery Engineer Relationship Specialty Start Date End Date Ty Amin MD PCP - General Family Medicine 09/20/23 Mckayla Blas NP [address] [place] [address] PCP - [facility] 09/07/23 01/11/25 Mckayla Blas NP Nurse Practitioner Family Medicine 09/20/23 documented as of this encounter
--- OUTSIDE RECORDS SUMMARY | 2025-04-02 10:21 | XMS_ITS | Encounter Summary ---
Author Organization [facility] Address [address] [place] [address] Care Team Providers Care Accounting Practice Manager Name Role Phone Ty Amin MD Primary Care Provider [phone] Mckayla Blas NP Unavailable [phone] Mckayla Blas NP Unavailable [phone] Encounter Details Date Type Department Care Team (Late st Contact Info) Description 05/12/2024 Orders Only [facility] [address] [place] [address] Angela Cochran NP [address] [place] [address] Social History Tobacco Use Types [...] Visit [facility] [address] [place] [address] Rain Souza MD [address] [place] [address] documented as of this encounter Procedures Procedure [...] as of this encounter Care Teams Accounting Practice Manager Relationship Specialty Start Date End Date Ty Amin MD PCP - General Family Medicine 09/20/23 Mckayla Blas NP [address] [place] [address] PCP - [facility] 09/07/23 01/11/25 Mckayla Blas NP Nurse Practitioner Family Medicine 09/20/23 documented as of this encounter
--- OUTSIDE RECORDS SUMMARY | 2025-04-02 10:21 | XMS_ITS | Encounter Summary ---
Author Organization [facility] Address [address] [place] [address] Care Team Providers Care Party Plan Salesperson Name Role Phone Ty Amin MD Primary Care Provider [phone] Mckayla Blas CANDLE WRAPPING MACHINE OPERATOR Unavailable [phone] Mckayla Blas NP Unavailable [phone] Encounter Details Date Type Department Care Team (Late st Contact Info) Description 04/14/2024 Orders Only [facility] [address] [place] [address] Mckayla Blas NP [address] [facility] [place] [address] Social History Tobacco Use Types Packs/Day Years [...] you attend chur ch or taoist services? 1 to 4 times per year [...] Recorded Patient Health Questionnaire-2 Score 1 01/17/2024 [facility] - Occupational Stress Questionnaire [...] Visit [facility] [address] [place] [address] Rain Souza MD [address] [place] [address] documented as of this encounter Procedures Procedure Name Priority Date/Time Associated Diagnosis Comments XR ANKLE 3+ VIEWS RIGHT Routine 04/14/2024 2:57 PM EDT XR ANKLE 3+ VIEWS RIGHT Routine 04/14/2024 11:20 AM EDT documented in this encounter Results * XR ankle 3+ views right (04/14/2024 2:57 PM EDT) Anatomical Region Laterality Modality Lower Extremities, Ankle Right Radiogr aphic Imaging us Mckayla Blas CANDLE WRAPPING MACHINE OPERATOR IMG XR PROCEDURES Final Result * XR ankle 3+ views right (04/14/2024 11:20 AM EDT) Anatomical Region Laterality Modality Lower Extremities, Ankle Right Radiogr aphic Imaging us Mckayla Blas CANDLE WRAPPING MACHINE OPERATOR IMG XR PROCEDURES Final Result documented in this encounter Visit Diagnoses Not on filedocumented in this encounter Additional Health Concerns Assessment Noted Time PHQ-9 Depression Total Score: 3 01/17/20 10:08 AM EDT documented as of this encounter Care Teams Party Plan Salesperson Relationship Specialty Start Date End Date Ty Amin MD PCP - General Family Medicine 09/20/23 Mckayla Blas NP [address] [place] [address] PCP - [facility] 09/07/23 01/11/25 Mckayla Blas NP Nurse Practitioner Family Medicine 09/20/23 documented as of this encounter
--- OUTSIDE RECORDS SUMMARY | 2025-04-02 10:21 | XMS_ITS | Encounter Summary ---
Author Organization [facility] Address [address] [place] [address] Care Team Providers Care Underwriting Manager Name Role Phone Ty Amin MD Primary Care Provider [phone] Mckayla Blas NP Unavailable [phone] Mckayla Blas NP Unavailable [phone] Encounter Details Date Type Department Care [...] Recorded Patient Health Questionnaire-2 Score 1 01/17/2024 [facility] [...] [facility] [address] [place] [address] Rain Souza MD [address] [place] [address] documented as of this encounter Procedures Procedure Name Priority Date/Time Associated Diagnosis Comments MR LUMBAR SPINE WO CON 05/12/2024 2:41 PM EST documented in this encounter Results * MR LUMBAR SPINE WO CON (05/12/2024 2:41 PM EST) Anatomical Region Laterality Modality Other 05/12/2024 2:41 PM EST Narrative 05/12/2024 2:43 PM EST The [address] [address] Magnetic Resonance Report Signed Patient: MITZI MACIAS MR#: [id number] : 1970 Acct:[id number] Age/Sex: 53 / F ADM Date: 05/12/24 Loc: MRI Attending Dr: Angela Chin METAL PATTERNMAKER Ordering Physician: Angela Chin NP Date of Service: 05/12/24 Procedure(s): MR lumbar spine wo con Accession Number(s): [id number] cc: Mckayla Blas NP; Angela Chin NP [place] [address] Patient Name: MITZI MACIAS MRN: [facility]:[id number] date: 1970 Sex: F Assigned Patient Location: MRI Current Patient Location: CT Accession/Order Number: [id number] Exam Date: 05/12/2024 09:21 Report Date: 05/12/2024 [...] Signed By: 05/12/24 1443 DD/ 40 TD/TT: Washing Machine Repairer: Procedure Note Radiology, Radiologist, MD - 05/12/2024 [place] [address] Magnetic Resonance Report Signed Patient: MITZI MACIAS LMR#: [id number] : 1970Acct:[id number] Age/Sex: 53 / FADM Date: 05/12/24 Loc: MRI Attending Dr: Angela Chin METAL PATTERNMAKER Ordering Physician: Angela Chin NP Date of Service: 05/12/24 Procedure(s): MR lumbar spine wo con Accession Number(s): [id number] cc: Mckayla Blas METAL PATTERNMAKER; Angela Chin NP The [place] [id number] Patient Name: MITZI MACIAS MRN: [id number] date: 1970 Sex: F Assigned Patient Location: MRI Current Patient Location: CT Accession/Order Number: [id number] Exam Date: 05/12/2024 09:21 Report Date: 05/12/2024 [...] M.D. Signed By:05/12/24 1443 DD/ 144 TD/TT: Washing Machine Repairer: Generic External Data Provider [facility] Final Result documented in this encounter Visit Diagnoses Not on filedocumented in this encounter Additional Health Concerns Assessment Noted Time PHQ-9 Depression Total Score: 3 01/17/20 24 10:08 AM EDT documented as of this encounter Care Teams Underwriting Manager Relationship Specialty Start Date End Date Ty Amin MD PCP - General Family Medicine 09/20/23 Mckayla Blas NP [address] [place] [address] PCP - [facility] 09/07/23 01/11/25 Mckayla Blas NP Nurse Practitioner Family Medicine 09/20/23 documented as of this encounter
--- OUTSIDE RECORDS SUMMARY | 2025-04-02 10:21 | XMS_ITS | Encounter Summary ---
Author Organization [employer] Address [id number] [address] [place] [address] Care Team Providers Care Ems Director Name Role Phone JuanjoseMckayla carcamo Krystal THREAD MACHINE OPERATOR-BROWNELL OPERATOR Primary Care Provider Encounter Details Date Type Department Care Team (Late st Contact Info) Description 05/31/2020 Orders Only [facility] [address] [place] [address] External, Scanning Provider Social History Tobacco Use [...] ECG ORDERABLES Final Result Performing Organization Address [facility] Co de Phone Number [...] ECG ORDERABLES Final Result Performing Organization Address [facility] Co de Phone Number MANUALLY TRANSCRIBED RESULTS * Pulmonary function test (10/24/2018) us Scanning Provider External PFT ORDERABLES Final Result Performing Organization Address [facility] Co de Phone Number MANUALLY TRANSCRIBED RESULTS * Nuc stress Lexiscan/Exercise (12/12/2016) Anatomical Region Laterality Modality Chest N/A Nuclear Medicine us Scanning Provider External CV STRESS ORDERABLES Final Result documented in this encounter Visit Diagnoses Not on filedocumented in this encounter Care Teams Ems Director Relationship Specialty Start Date End Date Mckayla Blas, THREAD MACHINE OPERATOR-BROWNELL OPERATOR [address] [place] [address] PCP - General Nurse Practitioner 09/25/18 documented as of this encounter
--- OUTSIDE RECORDS SUMMARY | 2025-04-02 10:21 | XMS_ITS | Encounter Summary ---
[facility] Address [id number] [address] [place] [address] Care Team Providers Care Liability Claims Examiner Name Role Phone Mckayla Blas APRN-SALES CORRESPONDENT Primary Care Provider Encounter Details Date Type Department Care Team (Late st Contact Info) Description 05/03/2020 [facility]phone [facility] [address] [place] [address] Tramaine Romero DO [address] [place] [address], [address] [id number] Social History Tobacco Use Types Packs/Day Years [...] on filedocumented in this encounter Care Teams Liability Claims Examiner Relationship Specialty Start Date End Date Mckayla Blas [place] [address] PCP - General Nurse Practitioner 09/25/18 documented as of this encounter
--- OUTSIDE RECORDS SUMMARY | 2025-04-02 10:21 | XMS_ITS | Encounter Summary ---
Author Organization [facility] Address [address] [place] [address] Care Team Providers Care Cooking Appliance Repair Technician Name Role Phone Ty Amin MD Primary Care Provider [phone] Ty Amin MD Primary Care Provider [phone] Mckayla Blas AUTOMATION QTP TESTER Unavailable [phone] Mckayla Blas AUTOMATION QTP TESTER Unavailable [phone] Encounter Details Date Type Department Care Team (Late st Contact Info) Description 08/31/2023 Clinisync Result Encounter [facility] External Department Unsolicited Andra Alcala PA [address] [place] [address] [address] [place], [place] [id number] Social History Tobacco Use Types Packs/Day Years [...] often do you attend chur ch or jainism services? 1 to 4 times [...] Recorded Patient Health Questionnaire-2 Score 2 07/10/2023 [facility] - Occupational Stress Questionnaire [...] Endocrinology [address] [place] [address] Rain Souza MD [address] [place] [address] documented as of this encounter Procedures Procedure [...] PM EST 09/10/2023 2:29 PM EST Narrative [facility] - 09/16/2023 1:07 PM EDT us Generic External Data Provider LAB BLOOD ORDERAB LES Final Result Performing Organization Address City/[facility] [address]/ZIP Co de Phone Number [facility] * BLOOD CULTURE 1 (09/10/2023 2:05 PM EST) Pathologist [facility] BLOOD CULTURE 1 Blood Culture 1 NG5D NO GROWTH AT 5 DAYS.^NO GROWTH AT 5 DAYS. [facility] 09/10/2023 2:05 PM EST 09/10/2023 2:28 PM EST Narrative [facility] - 09/16/2023 1:07 PM EDT us Generic External Data Provider LAB BLOOD ORDERAB LES Final Result Performing Organization Address [facility] [address] [facility]/[place] de Phone Number [facility] * ECG 12-LEAD (08/31/2023 6:08 PM EST) Anatomical Region Laterality Modality Other 08/31/2023 6:08 PM EST Narrative 09/02/2023 7:32 [place] [address] Electrocardiograph Report Signed Patient: MITZI MACIAS MR#: [id number] : 1970 Acct:[id number] Age/Sex: 53 / F ADM Date: 08/31/23 Loc: [place] 214-[address]: Jacqueline Becerra D.O. Ordering Physician: Andra Alcala Date of Service: 08/31/23 Procedure(s): ECG 12 lead Accession Number(s): [id number] cc: [facility] Test Date: 2023-08-31 Pat Name: MITZI MACIAS Department: Room: - Gender: Female Solder Making Laborer: : 1970 Requested By: MCKAYLA BLAS Order Number: [id number] Reading MD: LAURI DIOR Measurements Intervals Nelson Rate: 102 P: 67 GA: 144 QRS: 52 QRSD: 72 T: 49 QT: 326 QTc: 385 Interpretive Statements 1120 Sinus tachycardia 4068 Nonspecific Twave abnormality 8102 Low QRS voltage in chest leads 9140 abnormal rhythm ECG Compared to ECG 12/04/2022 21:27:48 Electronically Signed On 09-02-2023 7:31:43 EST by LAURI DIOR Dictated By: Lauri Dior D.O. Signed By: 09/02/23731 DD/ 07 TD/TT: Railroad Inspector: Procedure Note Radiology, Radiologist, MD - 09/02/2023 [place] [address] Electrocardiograph Report Signed Patient: MITZI MACIAS LMR#: [id number] : 1970Acct:[id number] Age/Sex: 53 / FADM Date: 08/31/23 Loc: [place] 214-[address]: Jacqueline Becerra D.O. Ordering Physician: Andra Alcala Date of Service: 08/31/23 Procedure(s): ECG 12 lead Accession Number(s): [id number] cc: The [facility] Test Date: 2023-08-31 Pat Name: MITZI MACIAS Department: Room: - Gender: Female Solder Making Laborer: : 1970 Requested By: MCKAYLA BLAS Order Number: [id number] Reading MD: LAURI DIOR Measurements Intervals Nelson Rate: 102 P: 67 GA: 144 QRS: 52 QRSD: 72 T: 49 QT: 326 QTc: 385 Interpretive Statements 1120 Sinus tachycardia 4068 Nonspecific Twave abnormality 8102 Low QRS voltage in chest leads 9140 abnormal rhythm ECG Compared to ECG 12/04/2022 21:27:48 Electronically Signed On 09-02-2023 7:31:43 EST by LAURI DIOR Dictated By: Lauri Dior D.O. Signed By:09/02/23731 DD/ 07 TD/TT: Railroad Inspector: Andra MAYERS [facility] Final Result documented in this encounter Visit Diagnoses Not on filedocumented in this encounter Care Teams Cooking Appliance Repair Technician Relationship Specialty Start Date End Date Ty Amin MD PCP - General Family Medicine 01/05/23 09/19/23 Ty Amin MD PCP - General Family Medicine 09/20/23 Mckayla Blas NP [address] [place] [address] PCP - [facility] 09/07/23 01/11/25 Mckayla Blas NP Nurse Practitioner Family Medicine 09/20/23 documented as of this encounter
--- OUTSIDE RECORDS SUMMARY | 2025-04-02 10:21 | XMS_ITS | Encounter Summary ---
Author Organization [facility] Address [address] [place] [address] Care Team Providers Care Energy Management Specialist Name Role Phone Ty Amin MD Primary Care Provider [phone] Mckayla Blas NP Unavailable [phone] Mckayla Blas NP Unavailable [phone] Encounter Details Date Type Department Care [...] [facility] [address] [place] [address] Rain Souza MD [address] [place] [address] documented as of this encounter Procedures Procedure Name Priority Date/Time Associated Diagnosis Comments CT ABDOMEN PELVIS W CON 05/12/2024 2:16 PM EST documented in this encounter Results * CT ABDOMEN PELVIS W CON (05/12/2024 2:16 PM EST) Anatomical Region Laterality Modality Other 05/12/2024 2:16 PM EST Narrative 05/12/2024 2:19 PM EST The [address] [address] [address] Scan Report Signed Patient: MITZI MACIAS MR#: [id number] : 1970 Acct:[id number] Age/Sex: 53 / F ADM Date: 05/12/24 Loc: CT Attending Dr: Sarah MAYERS Ordering Physician: Sarah Vega Date of Service: 05/12/24 Procedure(s): CT abdomen pelvis w con Accession Number(s): [id number] cc: Mckayla Blas NP [place] [address] [place] [address] Patient Name: MITZI MACIAS MRN: [facility]:[id number] date: 1970 Sex: F Assigned Patient Location: CT Current Patient Location: Accession/Order Number: [id number] Exam Date: 05/12/2024 11:15 Report Date: 05/12/2024 [...] Signed By: 05/12/24 1419 DD/ 1416 TD/TT: Trigonometry Tutor: Procedure Note Radiology, Radiologist, MD - 05/12/2024 [place] [address] CT Scan Report Signed Patient: MITZI MACIAS LMR#: [id number] : 1970Acct:[id number] Age/Sex: 53 / FADM Date: 05/12/24 Loc: CT Attending Dr: Sarah MAYERS Ordering Physician: Sarah Vega Date of Service: 05/12/24 Procedure(s): CT abdomen pelvis w con Accession Number(s): [id number] cc: Mckayla Blas NP The [place] [id number] Patient Name: MITZI MACIAS MRN: [facility]:[id number] date: 1970 Sex: F Assigned Patient Location: CT Current Patient Location: Accession/Order Number: [id number] Exam Date: 05/12/2024 11:15 Report Date: 05/12/2024 [...] M.D. Signed By:05/12/24 1419 DD/ 1416 TD/TT: Trigonometry Tutor: Generic External Data Provider [facility] Final Result documented in this encounter Visit Diagnoses Not on filedocumented in this encounter Additional Health Concerns Assessment Noted Time PHQ-9 Depression Total Score: 3 01/17/20 24 10:08 AM EDT documented as of this encounter Care Teams Energy Management Specialist Relationship Specialty Start Date End Date Ty Amin MD PCP - General Family Medicine 09/20/23 Mckayla Blas NP [address] [place] [address] PCP - [facility] 09/07/23 01/11/25 Mckayla Blas NP Nurse Practitioner Family Medicine 09/20/23 documented as of this encounter
--- OUTSIDE RECORDS SUMMARY | 2025-04-02 10:21 | XMS_ITS | Encounter Summary ---
Author Organization [facility] Address [address] [facility] [place] [address] Care Team Providers Care Dust Box Worker Name Role Phone Ty Amin MD Primary Care Provider [phone] Mckayla Blas FUNERAL DIRECTOR/EMBALMER/OWNER Unavailable [phone] Encounter Details Date Type Department Care Team (Late st Contact Info) Description 02/18/2025 Abstract [facility] [address] [place] [address] Mckayla Blas NP [address] [place] [address] Social History Tobacco Use Types Packs/Day Years [...] Recorded Patient Health Questionnaire-2 Score 0 01/26/2025 [facility] Occupat ional [...] [facility] [address] [place] [address] Rain Souza MD [address] [place] [address] documented as of this encounter Visit Diagnoses Not on filedocumented in this encounter Additional Health Concerns Assessment Noted Time PHQ-9 Depression Total Score: 3 01/17/20 24 10:08 AM EDT documented as of this encounter Care Teams Dust Box Worker Relationship Specialty Start Date End Date Ty Amin MD PCP - General Family Medicine 09/20/23 Mckayla Blas NP Nurse Practitioner Family Medicine 09/20/23 documented as of this encounter
--- OUTSIDE RECORDS SUMMARY | 2025-04-02 10:21 | XMS_ITS | Clinical Summary ---
Author Organization [facility] Address [address] [place] [address] Care Team Providers Care Copper Plater Name Role Phone Ty Amin MD Primary Care Provider [phone] Mckayla Blas NP Unavailable [phone] Allergies No known active allergies Medications [...] if needed for wheezing Active HYDROcodone-aceta minophen (Gunlock) 5-325 MG tablet 1 tablet as needed [...] capsule 5 Active Accu-Chek Guide Test test stripIndications: Type [...] 025 Active ergocalciferol (Vitamin D2) 1.25 MG (64896 UT) capsuleIndication s:Vitamin D deficiency, unspecified Take 1 capsule (1.25 mg) by mouth 1 (one) time per week 12 capsule 1 025 2024 Active sulfamethoxazole- trimethoprim (Bactrim DS) 800-160 MG per tablet TAKE 1 TABLET BY MOUTH TWICE A DAY FOR 14 DAYS 025 Active amitriptyline (Elavil) 25 MG tabletIndications :Insomnia Take 1 tablet (25 mg) by mouth at bedtime 90 tablet 1 025 2024 Active aspirin 81 MG chewable tabletIndications :Type 2 diabetes mellitus with complication, with long-term current use of insulin (HCC) Chew 1 tablet (81 mg) Daily 90 tablet 3 2024 Active cetirizine (ZyrTEC) 10 MG tabletIndications [...] 1 2024 Active fluconazole (Diflucan) 150 MG tabletIndications :Antibiotic-induc ed yeast infection One time dose, repeat in 3 days . Do not take cholesterol pill while taking this medication. Once finished then resume 2 tablet 1 Active furosemide (Lasix) 20 MG tabletIndications :Bilateral lower extremity edema Take 1 tablet (20 mg) by mouth Daily as needed (edema) Take in the afternoon as needed 90 tablet 2024 Active furosemide (Lasix) 40 MG tabletIndications :Bilateral lower extremity edema Take 1 tablet (40 mg) by mouth Daily 90 tablet 2024 Active hydrALAZINE (Apresoline) 25 MG tabletIndications :Primary hypertension Take 1 tablet (25 mg) by mouth in the morning and 1 tablet (25 mg) before bedtime. 180 tablet 2024 Active lisinopril 20 MG tabletIndications :Primary hypertension Take 1 tablet (20 mg) by mouth Daily 90 tablet 2024 Active omeprazole (PriLOSEC) [address] capsuleIndication s:Gastro-esophage al reflux disease without esophagitis Take 1 capsule (20 mg) by mouth in the morning. Take before meals. 90 capsule 2024 Active potassium chloride ER (Micro-K) 10 MEQ ER capsuleIndication s:Bilateral lower extremity edema Take 1 capsule (10 mEq) by mouth Daily Take 1 capsule (10 mEq) by mouth in the morning. 90 capsule 1 025 2024 Active Roflumilast 500 MCG tabletIndications :Chronic obstructive pulmonary disease, unspecified (HCC) Take 1 tablet by mouth Daily 90 tablet 1 025 2024 Active simvastatin (Zocor) 10 MG tabletIndications :Hyperlipidemia, unspecified Take 1 tablet (10 mg) by mouth at bedtime 90 tablet 1 025 2024 Active insulin glargine (Lantus) 100 UNIT/ML injectionIndicati ons:Type 2 diabetes mellitus with hyperglycemia, with long-term current use of insulin ([facility]) Inject 58 Units under the skin in the morning and 58 Units before bedtime. 104.4 mL 1 025 2025 Active insulin glargine (Lantus SoloStar) 100 UNIT/ML penIndications:Ty pe 2 diabetes mellitus with hyperglycemia, with long-term current use of insulin ([facility]) INJECT 58 UNITS SUBCUTANEOUSLY TWICE A DAY 105 mL 2 025 Active Tirzepatide (Mounjaro) 15 MG/0.5ML solution auto-injectorIndi cations:Type 2 diabetes mellitus with other circulatory complications ([facility]) Inject 15 mg under the skin 1 (one) time per week 6 mL 1 025 Active varenicline (Chantix) 1 MG tabletIndications :Tobacco user,Encounter for smoking cessation counseling TAKE 1 TABLET BY MOUTH IN THE MORNING AND 1 TABLET BEFORE BEDTIME. TAKE WITH FULL GLASS OF WATER. 60 tablet 1 025 Active varenicline (Chantix) 1 MG tabletIndications :Tobacco user,Encounter for smoking cessation counseling Take 1 tablet (1 mg) by mouth in the morning and 1 tablet (1 mg) before bedtime. Take with full glass of water. 60 tablet 1 025 2024 Discontinued Active [...] wrapped, 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 as possible [facility] current use of inhaled steroid 025 Non-pressure [...] to see if helps Encounter for subsequent [facility] wellness visit (AWV) in Medicare patient 01/17/2024 [...] can try ubrelvy #3 samples given: Lot [id number], exp 03/2025 Mixed incontinence 11/14/2023 Arthritis 11/14/2023 [...] is necessary they take over prescribing Pancreatitis ([facility]) 09/17/2023 COPD exacerbation 09/17/2023 Assessment & Plan [...] 11:17 AM EDT): Open wounds refer to [facility] Wound Care Pulmonary hypertension 09/17/2023 Assessment & Plan (01/26/2025 7:52 AM EDT): Has seen [facility] Cardiology Assessment & Plan (12/09/2024 7:23 AM EDT): Has seen [facility] Cardiology Assessment & Plan (11/15/2023 3:49 PM EDT): Saw [facility] Cardiology See notes Going to see Pulmonary Assessment & Plan (09/27/2023 1:03 PM EDT): Needs to wear her PAP I am also going to have her see [facility] Cardiology as well PAD (peripheral [...] Plan (01/26/2025 7:53 AM EDT): Continue with lyneenajuvenalcintia mgmt is prescribing OARRS reviewed Fu in 3 months Goal: tighter glucose control, this has been improving, latest A1c is 7.4%!!! Assessment & Plan (10/27/2024 2:37 PM EDT): Continue with lyricjuvenal pain mgmt is prescribing OARRS reviewed Fu in 3 months Goal: tighter glucose control, this has been improving, latest A1c is 7.4%!!! Assessment & Plan (08/27/2024 6:06 PM EST): Continue with lyangelito pain mgmt is prescribing [...] Plan (10/27/2024 7:06 AM EDT): Follows with [facility] Needs smoking cessation Current meds: duoneb, albuterol, daliresp, Assessment & Plan (08/27/2024 7:31 AM EST): Follows with [facility] Needs smoking cessation Current meds: duoneb, albuterol, [...] chantix for smoking cessation Cont with dr aYñez Assessment & Plan (11/01/2023 11:17 AM EDT): Will have her stop symbicort and spiriva Will trial breztri: #2 samples given [id number], exp 03/03, rinse mouth after use Give [...] PM EDT): Current meds: albuterol, duoneb, Has flame gouger 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 Assessment & Plan (08/27/2024 7:30 AM EST): Current meds: albuterol, duoneb, Has flame gouger 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 Assessment & Plan (01/17/2024 [...] hospital, lost script I did contact [facility] in [place], they will get another fill on this [...] Care Team Description 03/09/2025 Refill [facility] [address] [place] [address] Mckayla Blas NP Tobacco user; Encounter for smoking cessation counseling 02/27/2025 Refill [facility] [address] [place] [address] Amber Pinzon LPN Type 2 diabetes mellitus with other circulatory complications (HCC) 02/26/2025 Refill [facility] [address] [place] [address] Rain Odonnell MD Type 2 diabetes mellitus with other circulatory complications (HCC) 02/18/2025 Abstract [facility] [address] [place] [address] Mckayla Blas NP 02/14/2025 Refill [facility] [address] [place] [address] Rain Odonnell MD Type 2 diabetes mellitus with hyperglycemia, with long-term current use of insulin ([facility]) 01/29/2025 9:40 AM EDT Office Visit [facility] [address] [place] [address] Rain Odonnell MD Encounter for dietary consultation (Primary Dx); Type 2 diabetes mellitus with hyperglycemia, with long-term current use of insulin ([facility]); Vitamin D deficiency; Primary hypertension ; Insulin long-term use ([facility]); Hyperlipemia, mixed ; Microalbuminuria; Class 3 severe obesity due to excess calories with serious comorbidity and body mass index (BMI) of 50.0 to 59.9 in adult ([facility]) 01/29/2025 Clinisync Result Encounter [facility] External Department Unsolicited Provider, Generic External Data 01/29/2025 Bamboo flowsheet [facility] [address] [place] [address] Rain Odonnell MD 01/26/2025 6:00 PM EDT Office Visit [facility] [address] [place] [address] Mckayla Blas NP Encounter for subsequent annual wellness visit (AWV) in Medicare patient (Primary Dx); Mixed hyperlipidemia ; Type 2 diabetes mellitus with complication, with long-term current use of insulin (HCC); Bilateral lower extremity edema; Gastro-esophageal reflux disease without esophagitis; Chronic diastolic heart failure ([facility]); Primary hypertension ; Pulmonary hypertension ([facility]); Diabetic polyneuropathy associated with type 2 diabetes mellitus (HCC); Pulmonary emphysema, unspecified emphysema type (HCC); Moderate persistent asthma without complication ([facility]); Insomnia; Non-seasonal allergic rhinitis, unspecified trigger; Type 2 diabetes mellitus with unspecified complications ([facility]); Anxiety and depression ; Antibiotic-induced yeast infection; Chronic obstructive pulmonary disease, unspecified (HCC); Hyperlipidemia, unspecified ; Vaginal yeast infection; Morbid (severe) obesity due to excess calories ([facility]) 01/26/2025 Bamboo flowsheet [facility] [address] [place] [address] Mckayla Blas NP 01/19/2025 Travel 01/16/2025 Refill [facility] [address] [place] [address] Amber Pinzon LPN Vitamin D deficiency, unspecified 01/07/2025 Abstract [facility] [address] [facility] [place] [address] Mckayla Blas NP 01/07/2025 Abstract [facility] [address] [facility] [place] [address] Mckayla Blas NP from Last 3 Months Immunizations Immunization Administration Dates Next Due Influenza Whole 05/02/2013 Influenza, [id number] 04/16/2017,05/10/2016 Influenza, Unspecified 05/18/2023,04/16/2017,08/2015 Influenza, injectable, quadrivalent [...] week 08/26/2024 How often do you attend [facility] or holiness services? More than 4 times [...] Recorded Patient Health Questionnaire-2 Score 0 01/26/2025 [facility] Occupat ional Health - Occupational Stress [...] any time in the past 12 m [facility], were you homeless or [...] Office Visit [facility] [address] [place] [address] Rain Odonnell MD [address] [place] [address] Health Maintenance Due Date Last Done Comments CT Colonography 1970 Colonoscopy 1970 FIT 1970 FOBT 1970 Sigmoidoscopy 1970 HPV/Cotest 2000 Pap Smear 10/07/2018 10/08/2015, 10/08/2015 Mammogram 12/13/2024 12/14/2023, 01/2024, 11/22/2022 Influenza Vaccine (#1) 2025 , [...] EDT Narrative 01/29/2025 6:40 [place] [address] Cardiology Report Signed Patient: SINA MACIAS MR#: [id number] : 1970 Acct:[id number] Age/Sex: 54 / F ADM Date: 01/29/25 Loc: CARD Attending Dr: AMI ORO APRN Ordering Physician: AMI ORO APRN Date of Service: 01/29/25 Procedure(s): CA echo doppler complete Accession Number(s): [id number] cc: Mckayla Blas SIGNAL TESTER; AIM ORO APRN Patient Name: SINA MACIAS MR#: [id number] : 1970 Exam Date: 01/29/2025 Ordering Doctor: [...] HERRERA Signed By: 01/29/251839 DD/ 39 TD/TT: Manager Manufacturing: Procedure Note Radiology, Radiologist, MD - 01/29/2025 [place] [address] Cardiology Report Signed Patient: SINA MACIAS LMR#: [id number] : 1970Acct:[id number] Age/Sex: 54 / FADM Date: 01/29/25 Loc: CARD Attending Dr: AMI ORO APRN Ordering Physician: AMI ORO APRN Date of Service: 01/29/25 Procedure(s): CA echo doppler complete Accession Number(s): [id number] cc: Mckayla Blas SIGNAL TESTER; AMI ORO APRN Patient Name: SINA MACIAS MR#: [id number] : 1970 Exam Date: 01/29/2025 Ordering Doctor: AMI ORO JUNIOR ASSISTANT MANAGER ECHOCARDIOGRAM REPORT PROCEDURE: CA ECHO DOPPLER COMPLETE [...] BHARAT HERRERA Signed By:01/29/251839 DD/ 39 TD/TT: Manager Manufacturing: Generic External Data Provider [facility] Final [...] EDT Narrative 12/14/2023 11:22 [place] [address] Mammography Report Signed Patient: SINA MACIAS MR#: [id number] : 1970 Acct:[id number] Age/Sex: 53 / F ADM Date: 12/13/23 Loc: MAMMO Attending Dr: Mckayla Blas NP Ordering Physician: Mckayla Blas NP Results: Date of Service: 12/13/23 Follow Up: Procedure(s): MM tomosynthesis screening BI Accession Number(s): [id number] cc: Mckayla Blas NP Patient Name: SINA MACIAS MR#: [id number] : 1970 Exam Date: 12/13/2023 Ordering Doctor: SAYDA Blas JUNIOR ASSISTANT MANAGER RADIOLOGY REPORT PROCEDURE: MM TOMOSYNTHESIS SCREENING BI [...] PALPABLE LUMP SHOULD BE BIOPSIED. Dictated by: oNel Ivan M.D. on 12/14/2023 at 11:18 Approved by: Noel Ivan M.D. on 12/14/2023 at 11:21 Dictated By: Noel Ivan M.D. Signed By: 12/14/23 1122 DD/ 1121 TD/TT: Manager Manufacturing: Procedure Note Radiology, Radiologist, MD - 12/14/2023 [place] [address] Mammography Report Signed Patient: SINA MACIAS LMR#: [id number] : 1970Acct:[id number] Age/Sex: 53 / FADM Date: 12/13/23 Loc: MAMMO Attending Dr: Mckayla Blas SIGNAL TESTER Ordering Physician: Mckayla Blas NPResults: Date of Service: 06/06/24Follow Up: Procedure(s): MM tomosynthesis screening BI Accession Number(s): [id number] cc: Mckayla Blas NP Patient Name: SINA MACIAS MR#: [id number] : 1970 Exam Date: 12/13/2023 Ordering Doctor: [...] M.D. Signed By:12/14/23 1122 DD/ 1121 TD/TT: Manager Manufacturing: Mckayla Blas NP [facility] Final Result from Last 3 Months or Most Recently Relevant to Health Maintenance Insurance [employer] MEDICARE Care Teams Copper Plater Relationship Specialty Start Date End Date Ty Amin MD PCP - General Family Medicine 09/20/23 Mckayla Blas NP Nurse Practitioner Family Medicine 09/20/23
--- OUTSIDE RECORDS SUMMARY | 2025-04-02 10:21 | XMS_ITS | Encounter Summary ---
Author Organization [facility] Address [address] [place] [address] Care Team Providers Care Tailor Fitter Name Role Phone Ty Amin MD Primary Care Provider [phone] Mckayla Blas SUPERVISOR PASTE PLANT Unavailable [phone] Mckayla Blas NP Unavailable [phone] Encounter Details Date Type Department Care Team (Late st Contact Info) Description 07/14/2024 Orders Only [facility] [address] [place] [address] Mckayla Blas NP [address] [facility] [place] [address] Social History Tobacco Use Types Packs/Day Years [...] 1 01/17/2024 [facility] - Occupational Stress Questionnaire Answer Date Recorded [...] Visit [facility] [address] [place] [address] Rain Souza MD [address] [place] [address] documented as of this encounter Procedures Procedure [...] documented as of this encounter Care Teams Tailor Fitter Relationship Specialty Start Date End Date Ty Amin MD PCP - General Family Medicine 09/20/23 Mckayla Blas NP [address] [place] [address] PCP - [facility] 09/07/23 01/11/25 Mckayla Blas NP Nurse Practitioner Family Medicine 09/20/23 documented as of this encounter
--- OUTSIDE RECORDS SUMMARY | 2025-04-02 10:21 | XMS_ITS | Clinical Summary ---
Author Organization [facility] Address [address] [place] [address] Care Team Providers Care Senior Architectural Designer Name Role Phone Mckayla Blas MD Primary Care Provider [phone] Allergies No known active allergies Medications amitriptyline [...] SUBCUTANEOUSLY TWICE DAILY 2 Active HYDROcodone-ac etaminophen (Bomoseen) 5-325 mg tablet TAKE 1 TABLET BY MOUTH THREE TIMES A DAY NEEDED FOR PAIN MUST LAST 30 DAYS 4 Active DULoxetine (Cymbalta) [address] capsule Take 1 tablet by mouth in the morning. Active ergocalciferol (Vitamin D-2) 1.25 MG (38991 Units) capsule Take 1.25 mg by mouth. 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 025 Vitamin [...] Assessment & Plan: Open wounds refer to [facility] Care Vaginal yeast infection 08/17/2023 [...] Team Description 02/04/2025 Results Follow-Up Cardiology [address] [place] [address] Karma Chatterjee CNP Complete Echo (TTE) w/wo Imaging Agent, Strain, 3D, Bubble Study 01/30/2025 Orders Only [facility] [address] [place] [address] Provider, MD Dale 01/06/2025 11:20 AM EDT Office Visit [facility] [address] [facility] [place] [address] Karma Chatterjee CNP Chronic diastolic heart failure [...] drink = 0.6 oz pur e alcohol) ID Safety & Environment Answer Date Rec orded [...] Months Insurance [employer] MEDICARE Care Teams Senior Architectural Designer Relationship Specialty Start Date End Date Mckayla Blas MD [address] [place] [address] PCP - General Nurse Practitioner 11/13/23
--- OUTSIDE RECORDS SUMMARY | 2025-04-02 10:22 | XMS_ITS | Encounter Summary ---
Author Organization [facility] Address [address] [place] [address] Care Team Providers Care Global Process Owner Name Role Phone Ty Amin MD Primary Care Provider [phone] Mckayla Blas DEVELOPMENTAL SPECIALIST Unavailable [phone] Mckayla Blas NP Unavailable [phone] Encounter Details Date Type Department Care Team (Late st Contact Info) Description 12/14/2023 Clinisync Result Encounter [facility] External Department Unsolicited Mckayla Blas NP [address] [place] [address] Social History Tobacco Use Types Packs/Day Years [...] any clubs o r organizations such as sabianist groups, unions, fraternal or athletic groups, or [...] 11/01/2023 [facility] - Occupational Stress Questionnaire Answer [...] [facility] [address] [place] [address] Rain Souza MD [address] [place] [address] documented as of this encounter Procedures Procedure Name Priority Date/Time Associated Diagnosis Comments MM TOMOSYNTHESIS SCREENING BI 12/14/2023 11:21 AM EDT documented in this encounter Results * MM TOMOSYNTHESIS SCREENING BI (12/14/2023 11:21 AM EDT) Anatomical Region Laterality Modality Other 12/14/2023 11:2 1 AM EDT Narrative 12/14/2023 11:22 AM EDT The [address] [address] Mammography Report Signed Patient: MITZI MACIAS MR#: [id number] : 1970 Acct:[id number] Age/Sex: 53 / F ADM Date: 12/13/23 Loc: MAMMO Attending Dr: Mckayla Blas NP Ordering Physician: Mckayla Blas NP Results: Date of Service: 12/13/23 Follow Up: Procedure(s): MM tomosynthesis screening BI Accession Number(s): [id number] cc: Mckayla Blas NP Patient Name: MITZI MACIAS MR#: [id number] : 1970 Exam Date: 12/13/2023 Ordering Doctor: [...] unknown cancer at age 75. LOCATION: [facility] BREAST COMPOSITION: The breasts are almost [...] Signed By: 12/14/23 1122 DD/ 1121 TD/TT: Trial Manager: Procedure Note Radiology, Radiologist, MD - 12/14/2023 [place] [address] Mammography Report Signed Patient: MITZI MACIAS LMR#: [id number] : 1970Acct:[id number] Age/Sex: 53 / FADM Date: 12/13/23 Loc: MAMMO Attending Dr: Mckayla Blas DEVELOPMENTAL SPECIALIST Ordering Physician: Mckayla Blas NPResults: Date of Service: 12/13/23Follow Up: Procedure(s): MM tomosynthesis screening BI Accession Number(s): [id number] cc: Mckayla Blas NP Patient Name: MITZI MACIAS MR#: [id number] : 1970 Exam Date: 12/13/2023 Ordering Doctor: SAYDA Blas BENZENE WASHER RADIOLOGY REPORT PROCEDURE: MM TOMOSYNTHESIS SCREENING BI [...] unknown cancer at age 75. LOCATION: The [facility] BREAST COMPOSITION: The breasts are almost [...] M.D. Signed By:12/14/23 1122 DD/ 1121 TD/TT: Trial Manager: us Mckayla Blas NP [facility] Final Result documented in this encounter Visit Diagnoses Not on filedocumented in this encounter Care Teams Global Process Owner Relationship Specialty Start Date End Date Ty Amin MD PCP - General Family Medicine 09/20/23 Mckayla Blas NP [address] [place] [address] PCP - [facility] 09/07/23 01/11/25 Mckayla Blas NP Nurse Practitioner Family Medicine 09/20/23 documented as of this encounter
--- OUTSIDE RECORDS SUMMARY | 2025-04-02 10:22 | XMS_ITS | Encounter Summary ---
Author Organization [facility] Address [address] [place] [address] Care Team Providers Care Personal Injury Specialist Name Role Phone Ty Amin MD Primary Care Provider [phone] Ty Amin MD Primary Care Provider [phone] Mckayla Blas ASSAULT AMPHIBIOUS VEHICLE CREWMAN Unavailable [phone] Mckayla Blas ASSAULT AMPHIBIOUS VEHICLE CREWMAN Unavailable [phone] Encounter Details Date Type Department Care Team (Late st Contact Info) Description 07/08/2023 Abstract [facility] [address] [place] [address] Mckayla Blas NP [address] [place] [address] Social History Tobacco Use Types Packs/Day Years [...] you attend chur ch or sikh services? 1 to 4 times [...] Recorded Patient Health Questionnaire-2 Score 2 07/10/2023 [facility] - [...] Endocrinology [address] [place] [address] Rain Souza MD [address] [place] [address] documented as of this encounter Visit Diagnoses Not on filedocumented in this encounter Care Teams Personal Injury Specialist Relationship Specialty Start Date End Date Ty Amin MD PCP - General Family Medicine 01/05/23 09/19/23 Ty Amin MD PCP - General Family Medicine 09/20/23 Mckayla Blas NP [address] [facility] [place] [address] PCP - [facility] 09/07/23 01/11/25 Mckayla Blas NP Nurse Practitioner Family Medicine 09/20/23 documented as of this encounter
--- OUTSIDE RECORDS SUMMARY | 2025-04-02 10:22 | XMS_ITS | Patient Health Record ---
Author Organization [facility] in [place] Address [address] [place] [address] Care Team Providers Care Plc Technician Name Role Phone Mckayla Blas CNP Primary Care Provider Unavail able Armando Yañez Unavailable [phone] Allergies No Known Allergies Results Component Value Reference Range Notes PROF CHEM 8 (BAS METB) (Not yet reviewed by provider) Interpretation: Performing Lab: Notes/Report: [facility] , Sodium 142 136-145 mmol/L [...] Performing Lab: see note ML - [facility] LB CBC AUTO DIFF (Not yet revie wed by provider) Interpretation: Performing Lab: Notes/Report: [facility] , White Blood Count 12.8 [...] Performing Lab: see note ML - [facility] LB VC SEGMENTAL PRESSURES (Not yet reviewed by provider) Interpretation: Performing Lab: Notes/Report: Source Facility: [facility] [place] [address] [place] [address] Vein Report Signed Patient: MITZI MACIAS MR#: [id number] : 1970 Acct:[id number] Age/Sex: 53 / F ADM Date: 04/24/24 Loc: VC Attending Dr: Rafael Gongora Ordering Physician: Rafael Gongora Date of Service: 04/24/24 Procedure(s): VC SEGMENTAL PRESSURES Accession Number(s): [id number] cc: Mckayla Blas NP; Rafael Gongora [place] [address] Patient Name: MITZI MACIAS MRN: [facility]:[id number] date: 1970 Sex: F Assigned Patient Location: Current Patient Location: Accession/Order Number: [id number] Exam Date: 04/24/2024 10:25 Report Date: 04/24/2024 11:20 At the request of: RAFAEL GONGORA Procedure: VC SEGMENTAL PRESSURES EXAM: VC SEGMENTAL PRESSURES HISTORY: R09.89 COMPARISON: None. FINDINGS: Segmental pressures presented as follows (right, left) in mmHg. Brachial: 169, 166 Upper thigh: Not obtained Lower thigh: 129, 119 Calf: 124, 106 DPA: 108, 105 THEATRICAL DRESSER: 100, 91 1st Toe: 124, 142 ISABELLE: [...] Gardner M.D. Signed By: 04/24/24 1123 DD/ TD/TT: Ladle Filler: Reason For Referral No Information Medications Medication [...] Days Active Vitamin D (Ergocalciferol) 1.25 MG (14064 UT) Oral; Duration: 90 Days Active Breztri Aerosphere 160-9-4.8 MCG/ACT Inhalation; Duration: 30 Days Active Simvastatin 10 MG Oral; Duration: 90 Days Active Roflumilast 250 MCG Oral; Duration: 28 Days Active Immunizations Vaccine Route Administration Date Status Comme nts Flu, Fluzone (75917) 6-35mo, multi-dose vial (1746-5704) Unknown 05/18/2023 Administered Pneumococcal (Pneumovax 23) Unknown [...] ulcer due to type 2 diabetes mellitus (5763673072078) Type 2 diabetes mellitus with foot ulcer (E11.621) Active confirmed Problem Morbid obesity (disorder) (852687800) Morbid (severe) obesity due to excess calories (E66.01) Active confirmed Problem Venous ulcer of lower extremity due to chronic peripheral venous hypertension (275014256077824) Chronic venous hypertension (idiopathic) with ulcer of left lower extremity (I87.312) Active confirmed Problem Chronic non-pressure ulcer of calf extending to fat level (7540389781204330 1) Non-pressure chronic ulcer of other part of right lower leg with fat layer exposed (L97.812) Active confirmed Problem Chronic ulcer of skin of lower leg (disorder) (8850234361085381 4) Non-pressure chronic ulcer of other part of left lower leg limited to breakdown of skin (L97.821) Active confirmed Problem 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 exposed (L97.822) Active confirmed Problem Long-term current use of inhaled steroid (905194072) clinical administrator (current) use of inhaled steroids (Z79.51) Active confirmed Problem COPD - Chronic obstructive pulmonary disease (27750134) COPD (chronic obstructive pulmonary disease) (J44.9) Active confirmed Problem Hypertension (07313415) HTN (hypertension) (I10) Active confirmed Problem Obstructive sleep apnea syndrome (43826946) DANIEL (obstructive sleep apnea) (G47.33) Active confirmed Problem Lumbar radiculopathy (745507071) Lumbar radiculopathy (M54.16) Active confirmed Problem Diabetes mellitus type 2 (disorder) (77653561) DM2 (diabetes mellitus, type 2) (E11.9) Active confirmed Problem Mental disorder caused by drug (645741209) Cigarette nicotine dependence with nicotine-induced disorder (F17.219) Active confirmed Problem Leukocytosis (562583998) Leukocytosis (D72.829) Active confirmed Problem Acute exacerbation of chronic obstructive airways disease (291437627) COPD with exacerbation (J44.1) Active confirmed Problem 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 (I87.313) Active confirmed Problem Non-prs chr ulce r oth prt l low leg limited to brkdwn skin (L97.821) Active confirmed Problem Stasis dermatitis co-occurrent with venous ulcer of right lower extremity due to chronic peripheral venous hypertension (637977961537995) Idiopathic chronic venous hypertension of right lower extremity with ulcer (I87.311) Active confirmed Problem Chronic venous hypertension with ulcer and inflammation involving left side (I87.332) Active confirmed Problem Abnormal arterial blood gas (622749468) Elevated carbon dioxide level (R79.81) Active confirmed Problem Skin ulcer of right knee, limited to breakdown of skin (L97.811) Active confirmed Encounters Encounter Location Date Provider Diagnosis [facility] [address] [place] [address] 04/07/2024 Armando Yañez [facility] [address] [place] [address] 12/02/2024 Armando Yañez Plan Of Treatment Pending Test Test Name Order Date CBC AUTO DIFF 08/27/2024 PROF CHEM 8 (BAS METB) 08/27/2024 VC SEGMENTAL PRESSURES 04/24/2024 Insurance Providers Payer Name Payer Address Payer Phone Subscriber Number Group Number Insured Name Patient Relationship to Insured Coverage Start Date Coverage End Date [employer] [address] [place] [phone] [id number] Mitzi Macias Self - patient is the [...] (hyperlipidemia) E78.5 Elevated carbon dioxide level R79.81 half-way (current) use of inhaled stero ids Z79.51 Anxiety and depression F41.8 GERD (gastroesophageal reflux disease) K 21.9 Surgical History Surgery Date(Month/Year) toe surgery cholecystectomy hysterectomy Hospitalization History Reason Date(Month/Year) Pneumonia -[facility] 08/31/2023 COPD Exacerbation-[facility] 09/10/2023
--- OUTSIDE RECORDS SUMMARY | 2025-04-02 10:22 | XMS_ITS | Encounter Summary ---
Author Organization [facility] Address [address] [facility] [place] [address] Care Team Providers Care Road Roller Operator Name Role Phone Ty Amin MD Primary Care Provider [phone] Mckayla Blas MENTAL HEALTH NURSE PRACTITIONER Unavailable [phone] Mckayla Blas NP Unavailable [phone] Encounter Details Date Type Department Care Team (Late st Contact Info) Description 12/17/2023 Orders Only [facility] [address] [place] [address] Mckayla Blas NP [address] [place] [address] Social History Tobacco Use Types Packs/Day Years [...] Recorded Patient Health Questionnaire-2 Score 0 11/01/2023 [facility] [...] [facility] [place] [facility] [address] [place] [address] Rain Souza MD [address] [place] [address] documented as of this encounter Procedures Procedure [...] filedocumented in this encounter Care Teams Road Roller Operator Relationship Specialty Start Date End Date Naderer, Ty, MD PCP - General Family Medicine 09/20/23 Mckayla Blas NP [address] [place] [address] PCP - [facility] 09/07/23 01/11/25 Mckayla Blas NP Nurse Practitioner Family Medicine 09/20/23 documented as of this encounter
--- OUTSIDE RECORDS SUMMARY | 2025-04-02 10:22 | XMS_ITS | Encounter Summary ---
Author Organization [facility] Address [address] [place] [address] Care Team Providers Care Mailing Specialist Name Role Phone Ty Amin MD Primary Care Provider [phone] Mckayla Blas BEAM DYER Unavailable [phone] Mckayla Blas BEAM DYER Unavailable [phone] Reason for Visit * Reason Comments Med Refill Encounter Details Date Type Department Care Team (Late st Contact Info) Description 11/27/2023 [facility]ill [facility] [address] [place] [address] Mckayla Blas NP [address] [place] [address] Chronic obstructive pulmonary disease, unspecified (HCC) Social [...] do you attend chur or mosque services? 1 to 4 times [...] Recorded Patient Health Questionnaire-2 Score 0 11/01/2023 [facility] [...] [facility] [place] [facility] [address] [place] [address] Rain Souza MD [address] [place] [address] documented as of this encounter Visit Diagnoses Diagnosis Chronic obstructive pulmonary disease, unspecified (HCC) documented in this encounter Care Teams Mailing Specialist Relationship Specialty Start Date End Date Ty Amin MD PCP - General Family Medicine 09/20/23 Mckayla Blas NP [address] [place] [address] PCP - [facility] 09/07/23 01/11/25 Mckayla Blas NP Nurse Practitioner Family Medicine 09/20/23 documented as of this encounter
--- OUTSIDE RECORDS SUMMARY | 2025-04-02 10:28 | XMS_ITS | CCD ---
Author Organization [facility] Care Team Providers Care Toll Line Inspector Name Role Phone James Benavidez Primary Care Provider [phone] JAMES BENAVIDEZ Primary Care Unavailable SHENDGE, VITHAL Admitting Unavailable SHENDGE, VITHAL Attending Unavailable AICHHOLZ, MCKAYLA Primary Care Unavailable AICHHOLZ, MCKAYLA Referring Unavailable AICHHOLZ, MCKAYLA J Primary Care Physician [phone] Tico, Stephanie Unavailable OLE RAMRIEZ Attending Unavailable OLE RAMIREZ Consulting Unavailable AICHHOLZ, ADULT SPECIALIST MCKAYLA Primary Care Unavailable OLE RAMIREZ Admitting Unavailable ANTONY SHRESTHA Consulting Unavailable ALONDRA ., UMBERTO Admitting Unavailable ALONDRA ., UMBERTO Attending Unavailable AICHHOLZ, ADULT SPECIALIST MCKAYLA Primary Care Unavailable AFSANEH Loera, DR BOLANOS Consulting Unavailable MARYANNE POWER Consulting Unavailable GLENN KERR Consulting Unavailable YOMAIRA KERR Consulting Unavailable HATTIE GOFF Consulting Unavailable ALONDRA ., UMBERTO Consulting Unavailable TICO, STEPHANIE Attending Unavailable TICO, STEPHANIE Consulting Unavailable AICHHOLZ, ADULT SPECIALIST MCKAYLA Primary Care Unavailable TICO, STEPHANIE Admitting Unavailable REGLA ., DR DUMONT Admitting Unavailable AICHHOLZ, ADULT SPECIALIST MCKAYLA Primary Care Unavailable REGLA ., DR DUMONT Attending Unavailable ARAUZ ., DR DUMONT Consulting Unavailable COLLIN HUERTAS Consulting Unavailable CECILIA KAUFMAN Admitting Unavailable CECILIA KAUFMAN Attending Unavailable AICHHOLZ, ADULT SPECIALIST MCKAYLA Primary Care Unavailable RAFAEL GONGORA Attending Unavailable RAFAEL GONGORA Admitting Unavailable AICHHOLZ, ADULT SPECIALIST MCKAYLA Primary Care Unavailable AICHHOLZ, ADULT SPECIALIST MCKAYLA Admitting Unavailable AICHHOLZ, ADULT SPECIALIST MCKAYLA Primary Care Unavailable AICHHOLZ, ADULT SPECIALIST MCKAYLA Attending Unavailable AICHHOLZ, ADULT SPECIALIST MCKAYLA Consulting Unavailable LAKSHMIPATHY ., NARENDRANATH Attending Anette vailable LAKSHMIPATHY ., NARENDRANATH Consulting Anette vailable LAKSHMIPATHY ., NARENDRANATH Admitting Anette vailable AICHHOLZ, ADULT SPECIALIST MCKAYLA Primary Care Unavailable VALENZUELA ., GIL Consulting Unavailable MORTENSEN ., DR CHAPARRO Aguillon Attending Unavailable MORTENSEN ., DR CHAPARRO Aguillon Admitting Unavailable AICHHOLZ, ADULT SPECIALIST MCKAYLA Primary Care Unavailable VALENZUELA ., GIL Consulting Unavailable MORTENSEN ., DR CHAPARRO Aguillon Admitting Unavailable AICHHOLZ, ADULT SPECIALIST MCKAYLA Primary Care Unavailable MORTENSEN ., DR CHAPARRO Aguillon Attending Unavailable HALKER ., SUBHASH Consulting Unavailable LAKSHMIPATHY ., NARENDRANATH Admitting Anette vailable LAKSHMIPATHY ., NARENDRANATH Attending Anette vailable AICHHOLZ, ADULT SPECIALIST MCKAYLA Primary Care Unavailable MORTENSEN ., DR CHAPARRO Aguillon Attending Unavailable MORTENSEN ., DR CHAPARRO Aguillon Admitting Unavailable VALENZUELA ., GIL Consulting Unavailable AICHHOLZ, ADULT SPECIALIST MCKAYLA Primary Care Unavailable VALENZUELA ., GIL Consulting Unavailable MORTENSEN ., DR CHAPARRO Aguillon Attending Unavailable MORTENSEN ., DR CHAPARRO Aguillon Admitting Unavailable AICHHOLZ, ADULT SPECIALIST MCKAYLA Primary Care Unavailable HATTIE BRODERICK Attending Unavailable HATTIE BRODERICK Admitting Unavailable AICHHOLZ, ADULT SPECIALIST MCKAYLA Primary Care Unavailable AICHHOLZ, ADULT SPECIALIST MCKAYLA Admitting Unavailable AICHHOLZ, ADULT SPECIALIST MCKAYLA Consulting Unavailable AICHHOLZ, ADULT SPECIALIST MCKAYLA Primary Care Unavailable AICHHOLZ, ADULT SPECIALIST MCKAYLA Attending Unavailable AICHHOLZ, ADULT SPECIALIST MCKAYLA Primary Care Unavailable MISC, DR LESLIE Admitting Unavailable MISC, DR LESLIE Attending Unavailable MISC, DR LESLIE Consulting Unavailable DIAB ., MARIANO Admitting Unavailable DIAB ., MARIANO Attending Unavailable DIAB ., MARIANO Consulting Unavailable AICHHOLZ, ADULT SPECIALIST MCKAYLA Primary Care Unavailable RASTEGAR, RICCO Consulting Unavailable AICHHOLZ, ADULT SPECIALIST MCKAYLA Admitting Unavailable AICHHOLZ, ADULT SPECIALIST MCKAYLA Primary Care Unavailable AICHHOLZ, ADULT SPECIALIST MCKAYLA Attending Unavailable AICHHOLZ, ADULT SPECIALIST MCKAYLA Consulting Unavailable DR PATRICIA VELOZ Consulting Unavailable TAMLYN ., CECILIA Attending Unavailable TAMLYN ., CECILIA Admitting Unavailable DR PATRICIA VELOZ Consulting Unavailable AICHHOLZ, ADULT SPECIALIST MCKAYLA Primary Care Unavailable TAMLYN ., CECILIA Consulting Unavailable MORTENSEN ., DR CHAPARRO Aguillon Attending Unavailable FESTUS ., DR CHAPARRO Aguillon Consulting Unavailable FESTUS ., DR CHAPARRO Aguillon Admitting Unavailable AICHHOLZ, ADULT SPECIALIST MCKAYLA Primary Care Unavailable HATTIE BRODERICK Attending Unavailable HATTIE BRODERICK Consulting Unavailable HATTIE BRODERICK Admitting Unavailable AICHHOLZ, ADULT SPECIALIST MCKAYLA Primary Care Unavailable HATTIE BAUTISTA Unavailable AICHHOLZ, ADULT SPECIALIST MCKAYLA Admitting Unavailable AICHHOLZ, ADULT SPECIALIST MCKAYLA Attending Unavailable AICHHOLZ, ADULT SPECIALIST MCKAYLA Consulting Unavailable AICHHOLZ, ADULT SPECIALIST MCKAYLA Primary Care Unavailable Brennan PHIPPS, Ty Primary Care Provider Brennan PHIPPS, Ty Primary Care Provider Aichholz PASSENGER SOLICITOR, Mckayla Unavailable Aichholz PASSENGER SOLICITOR, Mckayla Unavailable Elbert ARAUZ Attending Unavailable SARAH VEGA Attending Unavailable AICHHOLZ, MCKAYLA Attending Unavailable RAIN SOUZA F Attending Unavailable AICHHOLZ, MCKAYLA Attending Unavailable AICHHOLZ, MCKAYLA Attending Unavailable AICHHOLZ, MCKAYLA Attending Unavailable LIBBYRAIN GIANG F Attending Unavailable AICHHOLZ, MCKAYLA Attending Unavailable LIBBYRAIN GIANG F Attending Unavailable LIBBY, AHMAD F Referring Unavailable AICHHOLZ, MCKAYLA Attending Unavailable DAKOTAH BRIDGES Attending Unavailable AMI ORO Attending Unavailable Aichholz PASSENGER SOLICITOR, Mckayla Unavailable Adonay CHAU, Flynn Arzate Attending Unavailab le Bob SOILS ANALYST-ADULT SPECIALIST, Omero Lovell Attending Unav ailable Adonay CHAU, Flynn Arzate Referring Unavailab lolita Kellogg MD, Corinne Ghosh Attending Unavail able Bob SOILS ANALYST-ADULT SPECIALIST, Omero Lovell Attending Unav ailable Adonay CHAU, Flynn Arzate Attending Unavailab le Bob SOILS ANALYST-ADULT SPECIALIST, Omero Lovell Attending Unav ailable Allergies Allergy Classification Reported Allergen(s) Allergy Type Date of Onset Reaction(s) Facility (1 source) No Known Medication Allergies; Translations: [No Known Medication Allergies] Propensity to adverse reactions (disorder) [facility] Repository Medications Current Medications Medication [...] Start Date: 02/06/22 Status: Ordered HYDROcodone-acet aminophen ([place]) 5-325 MG tablet 1 tablet 3 (three) times a day as needed for severe pain. Active take 1 tablet by vandana twice daily as needed [place] 5-325 MG 1 tablet as needed Orally [...] every week ergocalciferol (Vitamin D2) 1.25 MG (48424 UT) capsule Indications: Vitamin D deficiency, unspecified Take 1 capsule (1.25 mg) by mouth 1 (one) time per week 12 capsule 1 01/16/2025 04/10/2025 Active Start: 10-27-2024 End: 01-19-2025 take 1 capsule by mouth two times weekly ergocalciferol (Vitamin D2) 1.25 MG (97929 UT) capsule Indications: Vitamin D deficiency, unspecified Take 1 capsule (1.25 mg) by mouth 2 (two) times a week 24 capsule 1 10/27/2024 01/19/2025 Active Start: 04-06-2024 End: 10-27-2024 take 1 capsule by mouth every week ergocalciferol (Vitamin D2) 1.25 MG (04539 UT) capsule Indications: Vitamin D deficiency, unspecified [...] 02-06-2022 Chronic Other aftercare (1 source) Other custodial (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 therapy; Translations: [OTH GROUP HOME CURRENT DRUG THERAPY] Onset: 12-05-2022 Episodic Other aftercare (1 source) ocean transportation intermediary (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; Translations: [GROUP HOME CURRENT USE OF ASPIRIN] Onset: 12-05-2022 Episodic Other aftercare (6 sources) Long-term current use of insulin; Translations: [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] 05-27-2024 Episodic Other [...] ocumentation in Social History. Unclassified (1 source) GROUP HOME INJECT NONINSULN ANTIDIAB; Translations: [BOOM WORKER INJECT NONINSULN ANTIDIAB] Onset: 12-05-2022 Unclassified [...] 08-27-2024 08-27-2024 Episodic Other aftercare (3 sources) [facility] (current) use of insulin; Translations: [GROUP HOME CURRENT USE OF INSULIN] Onset: 12-05-2022 Episodic Other aftercare (20 sources) Long-term current use of inhaled steroid; Translations: [[facility] (current) use of inhaled steroids] Onset: 08-27-2024 [...] She has had testing done at the [facility] last year which she brought [...] Bob REBOLLEDOOmero Nas 03/23/25 12:01 EDT Normal [facility] Podiatry Office/Clinic Noteo n 03-11-2025 Podiatry [...] wraps (gauze, tila bandage, Coban II, tuba nurses' association counselor), Dakins solution, a 40-day course of antibiotics, [...] other blood thinners. The patient resides in [place]. Review of Systems Constitutional: Negative for signs [...] extremities Positi (more content not included)... Normal [facility] Comment on above: Order Comment: Destiny ocampo Attachment [id number] Can be viewed in source system XR [...] Electronically Signed in Other Vendor System) Normal [facility] Orders Onlyon 01-30-2025 Orders Only [id number] Mitzi Macias 1970 F Date Provider Department Center 01/30/2025 [id number], HISTORICAL [facility] Family History Problem Relation Age of Onset Heart attack Paternal Grandmother Family Status - Relation Status Age at Mother Father Paternal Grandmother Normal [facility] CA ECHO DOPPLER COMPLETEon 0 01-29-2025 [place] [id number] Cardiology Report Signed Patient: MITZI MACIAS MR#: [id number] : 1970 Acct:[id number] Age/Sex: 54 / F ADM Date: 01/29/25 Loc: CARD Attending Dr: AMI ORO APRN Ordering Physician: AMI ORO APRN Date of Service: 01/29/25 Procedure(s): CA echo doppler complete Accession Number(s): [id number] cc: Mckayla Blas PASSENGER SOLICITOR; AMI ORO APRN Patient Name: MITZI MACIAS MR#: [id number] : 1970 Exam Date: 01/29/2025 Ordering Doctor: AMI ORO [facility] ECHOCARDIOGRAM REPORT PROCEDURE: CA ECHO DOPPLER [...] HERRERA Signed By: 01/29/251839 DD/ 39 TD/TT: Hose Tender: [facility] Radiology, Radiologist, MD - 01/29/2025 [place] [address] Cardiology Report Signed Patient: MITZI MACIAS MR#: [id number] : 1970 Acct:[id number] Age/Sex: 54 / F ADM Date: 01/29/25 Loc: CARD Attending Dr: AMI ORO APRN Ordering Physician: AMI ORO APRN Date of Service: 01/29/25 Procedure(s): CA echo doppler complete Accession Number(s): [id number] cc: Mckayla Blas PASSENGER SOLICITOR; AMI ORO APRN Patient Name: MITZI MACIAS MR#: [id number] : 1970 Exam Date: 01/29/2025 Ordering Doctor: [...] HERRERA Signed By: 01/29/251839 DD/ 39 TD/TT: Hose Tender: [facility] Radiology Study observation (narrative) [facility] CA ECHO DOPPLER COMPLETEOrde red By: Radiologist Radiology on 01-29-2025 [facility] Work Phone: Glucose (Bld) [Mass/Vol]on 0 01-29-2025 Glucose Blood, POC 121 mg/dL [facility] Laboratory - Hematology and Cell countson 01-29-2025 HbA1c (Bld) [Mass fraction] 8.4 % [facility] No Panel Informationon 01-29 Interpretation and review of laboratory results Abnormal [facility] Office Visiton 01-06-2025 Follow-up visit [id number] Mitzi Macias 1970 F Date Provider Department Center 01/06/2025 Mikaela-AMI ORO CARD [facility] Family History Problem Relation Age of Onset Heart attack Paternal Grandmother Family Status - Relation Status Age at Mother Father Paternal Grandmother Level of Service:98555 SD OFFICE/OUTPATIENT ESTABLISHED MOD [facility] 30 MIN Reason for Visit and Comments: Congestive Heart Failure [127] Hypertension [344749] Hyperlipidemia [182] Normal [facility] 36on 10-21-2024 36 Regarding lab results from 10/08/2024: MD Mickie Merritt MA Lipids, ALT AST, and BMP are normal. HbA1c was not performed. Continue current management. LM on patient's VM. Normal [facility] Glucose (Bld) [Mass/Vol]Orde red By: Mica Sauceda on 10-08-2024 Glucose Blood, POC 97 mg/dL [facility] Laboratory - Hematology and Cell countson 10-08-2024 HbA1c (Bld) [Mass fraction] 7.4 % [facility] No Panel InformationOrdered By: Mica Sauceda on 10-08-2024 [facility] TBH UA (CLEAN/CATCH) MICROSC OPIC IF INDICATEon 10-08-2024 BILIRUBIN URINE Negative NEGATIVE [facility] BLOOD URINE Negative NEGATIVE [facility] Clarity (U) CLEAR CLEAR [facility] Color (U) YELLOW YELLOW [facility] GLUCOSE URINE UA Negative NEGATIVE mg/dL [facility] Interpretation and review of laboratory results Abnormal [facility] Ketones Ql (U) Negative NEGATIVE mg/dL [facility] Leukocyte esterase Test strip Ql (U) Negative NEGATIVE [facility] NITRITE URINE Negative NEGATIVE [facility] pH (U) 5.5 [pH] 5.0 - 9.0 [facility] Protein (U) [Mass/Vol] 30 mg/dL Abnormal NEG/TRACE NO [facility] SPECIFIC GRAVITY URINE >=1.030 Abnormal 1.005 - 1.025 [facility] URINE MICROSCOPIC INDICATED YES [facility] UROBILINOGEN URINE 1.0 EU/dL 0.2 - 1.0 EU/dL [facility] ALL CBC WITH AUTO DIFFon BASOPHILS ABSOLUTE AUTO 0.1 [facility] Basophils/100 WBC (Bld) 0.5 % 0.2 - 2.0 % [facility] Eosinophils/100 WBC (Bld) 1.9 % 0.9 - 7.0 % [facility] Erythrocyte distribution width (RBC) [Ratio] 14.6 % 11.0 - 15.0 % [facility] Hematocrit (Bld) [Volume fraction] 50.9 % High 36.0 - 48.0 % [facility] Hemoglobin (Bld) [Mass/Vol] 16.1 g/dL High 12.0 - 16.0 g/dL [facility] IMMATURE GRANULOCYTES ABS AUTO 0.[address] [facility] Immature granulocytes/100 WBC (Bld) 0.3 % 0.0 - 0.5 % [facility] Interpretation and review of laboratory results Abnormal [facility] LYMPHOCYTES ABSOLUTE AUTO 3.2 [facility] Lymphocytes/100 WBC (Bld) 25.1 % 20.5 - 60.0 % [facility] MCH (RBC) [Entitic mass] 29.2 pg 26.7 - 34.[address] [facility] MCHC (RBC) [Mass/Vol] 31.6 g/dL 29.9 - 35.2 g/dL [facility] MCV (RBC) [Entitic vol] 92.2 fL 81.0 - 99.[address] [facility] MONOCYTES ABSOLUTE AUTO 0.7 [facility] Monocytes/100 WBC (Bld) 5.2 % 1.7 - 12.0 % [facility] NEUTROPHILS ABSOLUTE AUTO 8.[address] [facility] Neutrophils/100 WBC (Bld) 67 % 43.0 - 75.0 % [facility] Platelet mean volume (Bld) [Entitic vol] 12.8 fL 9.5 - 13.[address] [facility] TBH EO # 0.2 [facility] TB PLT 122 Low [facility] RBC 5.52 High [facility] WBC 12.[address] [facility] Office Visiton 08-08-2024 Follow-up visit [id number] Mitzi Macias Gilberto 1970 F Date Provider Department Center 08/08/2024 [id number] BRIDGES CARD [facility] Family History Problem Relation Age of Onset Heart attack Paternal Grandmother Family Status - Relation Status Age at Paternal Grandmother Level of Service:07723 SD OFFICE/OUTPATIENT ESTABLISHED MOD MDM 30 MIN Reason for Visit and Comments: Congestive Heart Failure [127] - Denies chest pain, SOB, and palpitations. Hypertension [460013] Hyperlipidemia [182] LVH [Other] Edema [[id number]] - Denies worsening edema. She sees wound care for RLE ulcer. She was seeing the vein specialists here in town but they are moving to [place] in a few weeks. Normal [facility] Glucose (Bld) [Mass/Vol]Orde red By: Mica Sauceda on 05-27-2024 Glucose Blood, POC 158 mg/dL [facility] Laboratory - Hematology and Cell countson 05-27-2024 HbA1c (Bld) [Mass fraction] 9.2 % [facility] No Panel InformationOrdered By: Mica Sauceda on 05-27-2024 [facility] CREATININEon 05-12-2024 Creatinine [Mass/Vol] 0.92 mg/dL 0.55 - 1.02 mg/dL [facility] GFR/1.73 sq M.predicted CKD-EPI (S/P/Bld) [Vol rate/Area] >60 >=60 mL/min/1.73m 2 [facility] EGFR-NON AF THAI >60 >=60 mL/min/1.73m 2 [facility] CBC AUTO DIFFon 12-06-2022 BASO # 0.0 103/ul Normal 0.0-0.1 [facility] Comment on above: Performed By: #### C BC #### [facility] [address] [place] [address] [address] Ashlie [place] Basophils/100 WBC (Bld) 0.1 % Critically low 0.2-2.0 [facility] Comment on above: Performed By: #### C BC #### [facility] [address] [address] [address] Ashlie Hills EO # 0.0 103/ul Normal 0.0-0.7 [facility] Comment on above: Performed By: #### C BC #### [facility] [address] [place] [address] [address] Ashlie Hills Eosinophils/100 WBC (Bld) 0.0 % Critically low 0.9-7.0 [facility] Comment on above: Performed By: #### C BC #### [facility] [address] [address] [address] Ashlie Hills Erythrocyte distribution width (RBC) [Ratio] 14.9 % Normal 11.0-15.0 [facility] Comment on above: Performed By: #### C BC #### [facility] [address] [place] [address] [address] Ashlie Hills Hematocrit (Bld) [Volume fraction] 46.2 % Normal 36.0-48.0 [facility] Comment on above: Performed By: #### C BC #### [facility] [address] [address] [address] Ashlie Hills Hemoglobin (Bld) [Mass/Vol] 14.7 g/dL Normal 12.0-16.0 [facility] Comment on above: Performed By: #### C BC #### [facility] [address] [address] [address] Ashlie Hills IG # 0.06 10e3/ul Critically high 0.00-0.03 [facility] Comment on above: Performed By: #### C BC #### [facility] [address] [place] [address] Dr. Ashlie Hills IG % 0.4 % Normal 0.0-0.5 [facility] Comment on above: Performed By: #### C BC #### [facility] [address] [place] [address] Dr. Ashlie Hills LYMPH # 1.3 103/ul Normal 1.2-3.8 [facility] Comment on above: Performed By: #### C BC #### [facility] [address] [place] [address] Dr. Ashlie Hills Lymphocytes/100 WBC (Bld) 9.4 % Critically low 20.5-60.0 [facility] Comment on above: Performed By: #### C BC #### [facility] [address] [place] [address] Dr. Ashlie Hills MANUAL DIFF REQ NO Normal [facility] Comment on above: Performed By: #### C BC #### [facility] [address] [place] [address] Dr. Ashlie Hills MCH (RBC) [Entitic mass] 28.4 pg Normal 26.7-34.0 [facility] Comment on above: Performed By: #### C BC #### [facility] [address] [place] [address] Dr. Ashlie Hills MCHC (RBC) [Mass/Vol] 31.8 g/dL Normal 29.9-35.2 [facility] Comment on above: Performed By: #### C BC #### [facility] [address] [place] [address] Dr. Ashlie Hills MCV (RBC) [Entitic vol] 89.4 fL Normal 81.0-99.0 [facility] Comment on above: Performed By: #### C BC #### [facility] [address] [place] [address] Dr. Ashlie Hills MONO # 0.5 103/ul Normal 0.3-0.8 [facility] Comment on above: Performed By: #### C BC #### [facility] [address] [place] [address] Dr. Ashlie Hills Monocytes/100 WBC (Bld) 3.4 % Normal 1.7-12.0 [facility] Comment on above: Performed By: #### C BC #### [facility] [address] [place] [address] Dr. Ashlie Hills NEUT # 11.8 103/ul Critically high 1.4-6.5 [facility] Comment on above: Performed By: #### C BC #### [facility] [address] [place] [address] Dr. Ashlie Hills Neutrophils/100 WBC (Bld) 86.7 % Critically high 43.0-75.0 [facility] Comment on above: Performed By: #### C BC #### [facility] [address] [place] [address] Dr. Ashlie Hills Platelet mean volume (Bld) [Entitic vol] 12.6 fL Normal 9.5-13.5 [facility] Comment on above: Performed By: #### C BC #### [facility] [address] [place] [address] Dr. Ashlie Hills PLT 133 103/ul Critically low 150-450 [facility] Comment on above: Performed By: #### C BC #### [facility] [address] [place] [address] Dr. Ashlie Hills RBC 5.17 106/ul Normal 4.20-5.40 [facility] Comment on above: Performed By: #### C BC #### [facility] [address] [place] [address] Dr. Ashlie Hills WBC 13.6 103/ul Critically high 4.0-11.0 [facility] Comment on above: Performed By: #### C BC #### [facility] [address] [place] [address] Dr. Ashlie Hills MAGNESIUMon 12-06-2022 Magnesium [Mass/Vol] 2.2 mg/dL Normal 1.8-2.4 [facility] Comment on above: Performed By: #### I NFLUAB #### [facility] [address] [address] [address] Ashlie Hills POINT OF CARE GLUCOSEon 11-08 Glucose [Mass/Vol] 340 mg/dL Critically high -106 [facility] Comment on above: Performed By: #### P OCGLUC #### [facility] [address] [place] [address] Dr. Ashlie Hills Glucose [Mass/Vol] 276 mg/dL Critically high -106 [facility] Comment on above: Performed By: #### C BC #### [facility] [address] [address] [address] Ashlie Hills Glucose [Mass/Vol] 333 mg/dL Critically high [address] [place] [address] Comment on above: Performed By: #### C BC #### [facility] [address] [place] [address] Dr. Ashlie Hills PROF CHEM 8 (BAS METB)on Anion gap [Moles/Vol] 10.9 mmol/L Normal [facility] Comment on above: Performed By: #### I NFLUAB #### [facility] [address] [address] [address] Ashlie Hills Calcium [Mass/Vol] 9.3 mg/dL Normal 8.5-10.1 [facility] Comment on above: Performed By: #### I NFLUAB #### [facility] [address] [place] [address] Dr. Ashlie Hills Chloride [Moles/Vol] 103 mmol/L Normal 98-107 [facility] Comment on above: Performed By: #### I NFLUAB #### [facility] [address] [place] [address] Dr. Ashlie Hills CO2 [Moles/Vol] 31.2 mmol/L Normal 21.0-32.0 [facility] Comment on above: Performed By: #### I NFLUAB #### [facility] [address] [place] [address] Dr. Ashlie Hills Creatinine [Mass/Vol] 0.96 mg/dL Normal 0.55-1.02 [facility] Comment on above: Performed By: #### I NFLUAB #### [facility] [address] [address] [address] Ashlie Hills EGFR-AF THAI >60 Normal >=60 [facility] Comment on above: Performed By: #### I NFLUAB #### [facility] [address] [address] [address] Ashlie [place] EGFR-NON AF THAI >60 Normal >=60 [facility] Comment on above: Performed By: #### I NFLUAB #### [facility] [address] [address] [address] Ashlie [place] Glucose [Mass/Vol] 288 mg/dL Critically high 74-106 [facility] Comment on above: Performed By: #### I NFLUAB #### [facility] [address] [place] [address] Dr. Ashlie Hills Potassium [Moles/Vol] 5.1 mmol/L Normal 3.5-5.1 [facility] Comment on above: Performed By: #### I NFLUAB #### [facility] [address] [address] [address] Ashlie [place] Sodium [Moles/Vol] 140 mmol/L Normal 136-145 [facility] Comment on above: Performed By: #### I NFLUAB #### [facility] [address] [address] [address] Ashlie [place] Urea nitrogen [Mass/Vol] 30.0 mg/dL Critically high 7.0-18.0 [facility] Comment on above: Performed By: #### I NFLUAB #### [facility] [address] [address] [address] Ashlie Hills Urea nitrogen/Creatinine [Mass ratio] 31.2 mg/mg Normal [facility] Comment on above: Performed By: #### I NFLUAB #### [facility] [address] [place] [address] Dr. Ashlie Hills CBC AUTO DIFFon 12-05-2022 BASO # 0.0 103/ul Normal 0.0-0.1 [facility] Comment on above: Performed By: #### C BC #### [facility] [address] [address] [address] Ashlie Hills Basophils/100 WBC (Bld) 0.4 % Normal 0.2-2.0 [facility] Comment on above: Performed By: #### C BC #### [facility] [address] [place] [address] Dr. Ashlie Hills EO # 0.0 103/ul Normal 0.0-0.7 [facility] Comment on above: Performed By: #### C BC #### [facility] [address] [place] [address] Dr. Ashlie Hills Eosinophils/100 WBC (Bld) 0.0 % Critically low 0.9-7.0 [facility] Comment on above: Performed By: #### C BC #### [facility] [address] [place] [address] Dr. Ashlie Hills Erythrocyte distribution width (RBC) [Ratio] 14.8 % Normal 11.0-15.0 [facility] Comment on above: Performed By: #### C BC #### [facility] [address] [place] [address] Dr. Ashlie Hills Hematocrit (Bld) [Volume fraction] 49.9 % Critically high 36.0-48.0 [facility] Comment on above: Performed By: #### C BC #### [facility] [address] [place] [address] Dr. Ashlie Hills Hemoglobin (Bld) [Mass/Vol] 15.7 g/dL Normal 12.0-16.0 [facility] Comment on above: Performed By: #### C BC #### [facility] [address] [place] [address] Dr. Ashlie Hills IG # 0.04 10e3/ul Critically high 0.00-0.03 [facility] Comment on above: Performed By: #### C BC #### [facility] [address] [place] [address] Dr. Ashlie Hills IG % 0.5 % Normal 0.0-0.5 [facility] Comment on above: Performed By: #### C BC #### [facility] [address] [address] [address] Ashlie Hills LYMPH # 1.1 103/ul Critically low 1.2-3.8 [facility] Comment on above: Performed By: #### C BC #### [facility] [address] [address] [address] Ashlie Hills Lymphocytes/100 WBC (Bld) 12.7 % Critically low 20.5-60.0 [facility] Comment on above: Performed By: #### C BC #### [facility] [address] [place] [address] Dr. Ashlie Hills MANUAL DIFF REQ NO Normal [facility] Comment on above: Performed By: #### C BC #### [facility] [address] [place] [address] Dr. Ashlie Hills MCH (RBC) [Entitic mass] 28.1 pg Normal 26.7-34.0 [facility] Comment on above: Performed By: #### C BC #### [facility] [address] [place] [address] Dr. Ashlie Hills MCHC (RBC) [Mass/Vol] 31.5 g/dL Normal 29.9-35.2 [facility] Comment on above: Performed By: #### C BC #### [facility] [address] [place] [address] Dr. Ashlie Hills MCV (RBC) [Entitic vol] 89.3 fL Normal 81.0-99.0 [facility] Comment on above: Performed By: #### C BC #### [facility] [address] [address] [address] Ashlie Hills MONO # 0.1 103/ul Critically low 0.3-0.8 [facility] Comment on above: Performed By: #### C BC #### [facility] [address] [place] [address] Dr. Ashlie Hills Monocytes/100 WBC (Bld) 1.3 % Critically low 1.7-12.0 [facility] Comment on above: Performed By: #### C BC #### [facility] [address] [address] [address] Ashlie Hills NEUT # 7.2 103/ul Critically high 1.4-6.5 [facility] Comment on above: Performed By: #### C BC #### [facility] [address] [address] [address] Ashlie Hills Neutrophils/100 WBC (Bld) 85.1 % Critically high 43.0-75.0 [facility] Comment on above: Performed By: #### C BC #### [facility] [address] [address] [address] Ashlie Hills Platelet mean volume (Bld) [Entitic vol] 12.2 fL Normal 9.5-13.5 [facility] Comment on above: Performed By: #### C BC #### [facility] [address] [address] [address] Ashlie Hills PLT 116 103/ul Critically low 150-450 [facility] Comment on above: Performed By: #### C BC #### [facility] [address] [address] [address] Ashlie Hills RBC 5.59 106/ul Critically high 4.20-5.40 [facility] Comment on above: Performed By: #### C BC #### [facility] [address] [address] [address] Ashlie Hills WBC 8.5 103/ul Normal 4.0-11.0 [facility] Comment on above: Performed By: #### C BC #### [facility] [address] [place] [address] Dr. Ashlie Hills CTA CHEST WO W [...] by: HATTIE GOFF Date: 2022-12-05 01:52 Normal [facility] MAGNESIUMon 12-05-2022 Magnesium [Mass/Vol] 2.1 mg/dL Normal 1.8-2.4 [facility] Comment on above: Performed By: #### P OCGLUC #### [facility] [address] [address] [address] Ashlie Hills POINT OF CARE GLUCOSEon 11-08 Glucose [Mass/Vol] 293 mg/dL Critically high -106 [facility] Comment on above: Performed By: #### P OCGLUC #### [facility] [address] [address] [address] Ashlie Hills Glucose [Mass/Vol] 269 mg/dL Critically high -106 [facility] Comment on above: Performed By: #### P OCGLUC #### [facility] [address] [address] [address] Ashlie Hills Glucose [Mass/Vol] 223 mg/dL Critically high -106 [facility] Comment on above: Performed By: #### C VDAGS #### [facility] [address] [address] [address] Ashlie Hills PROF CHEM 8 (BAS METB)on Anion gap [Moles/Vol] 11.6 mmol/L Normal [facility] Comment on above: Performed By: #### P OCGLUC #### [facility] [address] [address] [address] Ashlie Hills Calcium [Mass/Vol] 9.2 mg/dL Normal 8.5-10.1 [facility] Comment on above: Performed By: #### P OCGLUC #### [facility] [address] [address] [address] Ashlie Hills Chloride [Moles/Vol] 102 mmol/L Normal 98-107 [facility] Comment on above: Performed By: #### P OCGLUC #### [facility] [address] [address] [address] Ashlie Hills CO2 [Moles/Vol] 28.7 mmol/L Normal 21.0-32.0 [facility] Comment on above: Performed By: #### P OCGLUC #### [facility] [address] [address] [address] Ashlie Hills Creatinine [Mass/Vol] 1.04 mg/dL Critically high 0.55-1.02 [facility] Comment on above: Performed By: #### P OCGLUC #### [facility] [address] [address] [address] Ashlie Hills EGFR-AF THAI >60 Normal >=60 [facility] Comment on above: Performed By: #### P OCGLUC #### [facility] [address] [address] [address] Ashlie Hills EGFR-NON AF THAI 56 mL/min/1.73m2 Critically low >=60 [facility] Comment on above: Performed By: #### P OCGLUC #### [facility] [address] [address] [address] Ashlie Hills Glucose [Mass/Vol] 231 mg/dL Critically high 74-106 [facility] Comment on above: Performed By: #### P OCGLUC #### [facility] [address] [address] [address] Ashlie Hills Potassium [Moles/Vol] 4.3 mmol/L Normal 3.5-5.1 [facility] Comment on above: Performed By: #### P OCGLUC #### [facility] [address] [address] [address] Ashlie Hills Sodium [Moles/Vol] 138 mmol/L Normal 136-145 [facility] Comment on above: Performed By: #### P OCGLUC #### [facility] [address] [address] [address] Ashlie Hills Urea nitrogen [Mass/Vol] 17.0 mg/dL Normal 7.0-18.0 [facility] Comment on above: Performed By: #### P OCGLUC #### [facility] [address] [place] [address] Dr. Ashlie Hills Urea nitrogen/Creatinine [Mass ratio] 16.3 mg/mg Normal [facility] Comment on above: Performed By: #### P OCGLUC #### [facility] [address] [address] [address] Ashlie Hills RESPIRATORY PANEL PLUSon Adenovirus Not detected Normal NOT DETECTED The [facility] Comment on above: Performed By: #### C VDAGS #### [facility] [address] [place] [address] Dr. Ashlie Shaffer. Parapertusis Not detected Normal NOT DETECTED The [facility] Comment on above: Performed By: #### C VDAGS #### [facility] [address] [address] [address] Ashlie Shaffer. Pertussis Not detected Normal NOT DETECTED [facility] Comment on above: Performed By: #### C VDAGS #### [facility] [address] [address] [address] Ashlie Hills Chlamydia Pneumoniae Not detected Normal NOT DETECTED [facility] Comment on above: Performed By: #### C VDAGS #### [facility] [address] [place] [address] Dr. Ashlie Hills Coronavirus 229E Not detected Normal NOT DETECTED [facility] Comment on above: Performed By: #### C VDAGS #### [facility] [address] [address] [address] Ashlie Hills Coronavirus HKU1 Not detected Normal NOT DETECTED [facility] Comment on above: Performed By: #### C VDAGS #### [facility] [address] [place] [address] Dr. Ashlie Hills Coronavirus NL63 Not detected Normal NOT DETECTED [facility] Comment on above: Performed By: #### C VDAGS #### [facility] [address] [place] [address] Dr. Ashlie Hills Coronavirus OC43 Not detected Normal NOT DETECTED [facility] Comment on above: Performed By: #### C VDAGS #### [facility] [address] [place] [address] Dr. Ashlie Hills Influenza A H1 Not detected Normal NOT DETECTED The [facility] Comment on above: Performed By: #### C VDAGS #### [facility] [address] [place] [address] Dr. Ashlie Hills Influenza A H1 2009 Not detected Normal NOT DETECTED [facility] Comment on above: Performed By: #### C VDAGS #### [facility] [address] [place] [address] Dr. Ashlie Hills Influenza A H3 Not detected Normal NOT DETECTED The [facility] Comment on above: Performed By: #### C VDAGS #### [facility] [address] [place] [address] Dr. Ashlie Hills Influenza B Not detected Normal NOT DETECTED The [facility] Comment on above: Performed By: #### C VDAGS #### [facility] [address] [place] [address] Dr. Ashlie Hills Metapneumovirus Not detected Normal NOT DETECTED The [facility] Comment on above: Performed By: #### C VDAGS #### [facility] [address] [place] [address] Dr. Ashlie Hills Mycoplas. Pneumoniae Not detected Normal NOT DETECTED [facility] Comment on above: Performed By: #### C VDAGS #### [facility] [address] [place] [address] Dr. Ashlie Hills Parainfluenza 1 Not detected Normal NOT DETECTED [facility] Comment on above: Performed By: #### C VDAGS #### [facility] [address] [place] [address] Dr. Ashlie Hills Parainfluenza 2 Not detected Normal NOT DETECTED [facility] Comment on above: Performed By: #### C VDAGS #### [facility] [address] [place] [address] Dr. Ashlie Hills Parainfluenza 3 Detected Abnormal NOT DETECTED The [facility] Comment on above: Performed By: #### C VDAGS #### [facility] [address] [place] [address] Dr. Ashlie Hills Parainfluenza 4 Not detected Normal NOT DETECTED The [facility] Comment on above: Performed By: #### C VDAGS #### [facility] [address] [place] [address] Dr. Ashlie Hills Rhino/Enterovirus Not detected Normal NOT DETECTED [facility] Comment on above: Performed By: #### C VDAGS #### [facility] [address] [place] [address] Dr. Ashlie Hills RP2 Header 1 RESPIRATORY PANEL: VIRUSES Normal [facility] Comment on above: Performed By: #### C VDAGS #### [facility] [address] [place] [address] Dr. Ashlie Hills RP2 Header 2 RESPIRATORY PANEL: BACTERIA Normal [facility] Comment on above: Performed By: #### C VDAGS #### [facility] [address] [place] [address] Dr. Ashlie Hills RSV Not detected Normal NOT DETECTED The [facility] Comment on above: Performed By: #### C VDAGS #### [facility] [address] [place] [address] Dr. Ashlie Hills SARS-CoV-2 (COVID-19) RNA MADDY+probe Ql (Unsp spec) Not detected Normal NOT DETECTED [facility] Comment on above: Performed By: #### C VDAGS #### [facility] [address] [place] [address] Dr. Ashlie Hills XR CHEST 1 Von [...] MARYANNE POWER Date: 2022-12-04 22:23 Normal [facility] BLOOD GASES BTYon 12-04-2022 02 MODE ROOM AIR Normal [facility] Comment on above: Performed By: #### C BC #### [facility] [address] [place] [address] Dr. Ashlie Hills ALLENS TEST Positive Normal [facility] Comment on above: Performed By: #### C BC #### [facility] [address] [place] [address] Dr. Ashlie Hills Base excess Calc (Bld) [Moles/Vol] 5.4 mmol/L Critically high -2.0-2.0 [facility] Comment on above: Performed By: #### C BC #### [facility] [address] [place] [address] Dr. Ashlie Hills BIPAP PRESSURE Normal [facility] Comment on above: Performed By: #### C BC #### [facility] [address] [place] [address] Dr. Ashlie Hills CPAP [facility] Comment on above: Performed By: #### C BC #### [facility] [address] [place] [address] Dr. Ashlie Hills FIO2 Normal [facility] Comment on above: Performed By: #### C BC #### [facility] [address] [place] [address] Dr. Ashlie Hills HCO3 (Bld) [Moles/Vol] 30.8 mmol/L Critically high 22.0-26 .0 [facility] Comment on above: Performed By: #### C BC #### [facility] [address] [place] [address] Dr. Ashlie Hills LPM Normal [facility] Comment on above: Performed By: #### C BC #### [facility] [address] [place] [address] Dr. Ashlie Hills MINUTE VOLUME Normal [facility] Comment on above: Performed By: #### C BC #### [facility] [address] [place] [address] Dr. Ashlie Hills Oxygen (Bld) [Partial pressure] 46.3 mm[Hg] Critically low 80.0-100.0 [facility] Comment on above: Performed By: #### C BC #### [facility] [address] [place] [address] Dr. Ashlie Hills Oxygen saturation in Blood 83.9 % Critically low 95.0-100.0 [facility] Comment on above: Performed By: #### C BC #### [facility] [address] [place] [address] Dr. Ashlie Hills PCO2 54.2 mmHg Critically high 35.0-45.0 [facility] Comment on above: Performed By: #### C BC #### [facility] [address] [place] [address] Dr. Ashlie Hills PEEP [facility] Comment on above: Performed By: #### C BC #### [facility] [address] [place] [address] Dr. Ashlie Hills pH (Bld) 7.363 [pH] Normal 7.350-7.450 [facility] Comment on above: Performed By: #### C BC #### [facility] [address] [place] [address] Dr. Ashlie Hills PIP [facility] Comment on above: Performed By: #### C BC #### [facility] [address] [place] [address] Dr. Ashlie Hills PS [facility] Comment on above: Performed By: #### C BC #### [facility] [address] [place] [address] Dr. Ashlie Hills PUNCTURE SITE LR [facility] Comment on above: Performed By: #### C BC #### [facility] [address] [place] [address] Dr. Ashlie Hills RATE [facility] Comment on above: Performed By: #### C BC #### [facility] [address] [place] [address] Dr. Ashlie Hills VENT MODE [facility] Comment on above: Performed By: #### C BC #### [facility] [address] [place] [address] Dr. Ashlie Hills [facility] Comment on above: Performed By: #### C BC #### [facility] [address] [place] [address] Dr. Ashlie Hills BNPon 12-04-2022 Natriuretic peptide B (Bld) [Mass/Vol] 76.0 pg/mL Normal <=900.0 [facility] Comment on above: Performed By: #### P OCGLUC #### [facility] [address] [place] [address] Dr. Ashlie Hills CBC AUTO DIFFon 12-04-2022 BASO # 0.1 103/ul Normal 0.0-0.1 [facility] Comment on above: Performed By: #### C BC #### [facility] [address] [place] [address] Dr. Ashlie Hills Basophils/100 WBC (Bld) 0.6 % Normal 0.2-2.0 [facility] Comment on above: Performed By: #### C BC #### [facility] [address] [place] [address] Dr. Ashlie Hills EO # 0.2 103/ul Normal 0.0-0.7 [facility] Comment on above: Performed By: #### C BC #### [facility] [address] [place] [address] Dr. Ashlie Hills Eosinophils/100 WBC (Bld) 1.9 % Normal 0.9-7.0 [facility] Comment on above: Performed By: #### C BC #### [facility] [address] [place] [address] Dr. Ashlie Hills Erythrocyte distribution width (RBC) [Ratio] 15.0 % Normal 11.0-15.0 [facility] Comment on above: Performed By: #### C BC #### [facility] [address] [place] [address] Dr. Ashlie Hills Hematocrit (Bld) [Volume fraction] 49.1 % Critically high 36.0-48.0 [facility] Comment on above: Performed By: #### C BC #### [facility] [address] [place] [address] Dr. Ashlie Hills Hemoglobin (Bld) [Mass/Vol] 15.6 g/dL Normal 12.0-16.0 [facility] Comment on above: Performed By: #### C BC #### [facility] [address] [place] [address] Dr. Ashlie Hills IG # 0.02 10e3/ul Normal 0.00-0.03 [facility] Comment on above: Performed By: #### C BC #### [facility] [address] [place] [address] Dr. Ashlie Hills IG % 0.2 % Normal 0.0-0.5 [facility] Comment on above: Performed By: #### C BC #### [facility] [address] [place] [address] Dr. Ashlie Hills LYMPH # 2.8 103/ul Normal 1.2-3.8 [facility] Comment on above: Performed By: #### C BC #### [facility] [address] [place] [address] Dr. Ashlie Hills Lymphocytes/100 WBC (Bld) 29.9 % Normal 20.5-60.0 [facility] Comment on above: Performed By: #### C BC #### [facility] [address] [place] [address] Dr. Ashlie Hills MANUAL DIFF REQ NO Normal [facility] Comment on above: Performed By: #### C BC #### [facility] [address] [place] [address] Dr. Ashlie Hills MCH (RBC) [Entitic mass] 28.5 pg Normal 26.7-34.0 [facility] Comment on above: Performed By: #### C BC #### [facility] [address] [place] [address] Dr. Ashlie Hills MCHC (RBC) [Mass/Vol] 31.8 g/dL Normal 29.9-35.2 [facility] Comment on above: Performed By: #### C BC #### [facility] [address] [place] [address] Dr. Ashlie Hills MCV (RBC) [Entitic vol] 89.8 fL Normal 81.0-99.0 [facility] Comment on above: Performed By: #### C BC #### [facility] [address] [place] [address] Dr. Ashlie Hills MONO # 1.0 103/ul Critically high 0.3-0.8 [facility] Comment on above: Performed By: #### C BC #### [facility] [address] [place] [address] Dr. Ashlie Hills Monocytes/100 WBC (Bld) 10.6 % Normal 1.7-12.0 [facility] Comment on above: Performed By: #### C BC #### [facility] [address] [place] [address] Dr. Ashlie Hills NEUT # 5.3 103/ul Normal 1.4-6.5 [facility] Comment on above: Performed By: #### C BC #### [facility] [address] [place] [address] Dr. Ashlie Hills Neutrophils/100 WBC (Bld) 56.8 % Normal 43.0-75.0 [facility] Comment on above: Performed By: #### C BC #### [facility] [address] [place] [address] Dr. Ashlie Hills Platelet mean volume (Bld) [Entitic vol] 12.5 fL Normal 9.5-13.5 [facility] Comment on above: Performed By: #### C BC #### [facility] [address] [place] [address] Dr. Ashlie Hills PLT 109 103/ul Critically low 150-450 [facility] Comment on above: Performed By: #### C BC #### [facility] [address] [place] [address] Dr. Ashlie Hills RBC 5.47 106/ul Critically high 4.20-5.40 [facility] Comment on above: Performed By: #### C BC #### [facility] [address] [place] [address] Dr. Ashlie Hills WBC 9.4 103/ul Normal 4.0-11.0 [facility] Comment on above: Performed By: #### C BC #### [facility] [address] [place] [address] Dr. Ashlie Hills PROF 14(COMP METB)on 023 Albumin [Mass/Vol] 2.9 g/dL Critically low 3.4-5.0 [facility] Comment on above: Performed By: #### C BC #### [facility] [address] [place] [address] Dr. Ashlie Hills Albumin/Globulin [Mass ratio] 0.6 {ratio} Normal [facility] Comment on above: Performed By: #### C BC #### [facility] [address] [place] [address] Dr. Ashlie Hills ALP [Catalytic activity/Vol] 64 U/L Normal 46-116 [facility] Comment on above: Performed By: #### C BC #### [facility] [address] [place] [address] Dr. Ashlie Hills ALT [Catalytic activity/Vol] 16 U/L Normal 14-59 [facility] Comment on above: Performed By: #### C BC #### [facility] [address] [place] [address] Dr. Ashlie Hills Anion gap [Moles/Vol] 9.6 mmol/L Normal [facility] Comment on above: Performed By: #### C BC #### [facility] [address] [address] [address] Ashlie Hills AST [Catalytic activity/Vol] 16 U/L Normal 15-37 [facility] Comment on above: Performed By: #### C BC #### [facility] [address] [address] [address] Ashlie Hills Bilirubin [Mass/Vol] 0.5 mg/dL Normal 0.2-1.0 [facility] Comment on above: Performed By: #### C BC #### [facility] [address] [address] [address] Ashlie Hills Calcium [Mass/Vol] 8.7 mg/dL Normal 8.5-10.1 [facility] Comment on above: Performed By: #### C BC #### [facility] [address] [address] [address] Ashlie [place] Chloride [Moles/Vol] 103 mmol/L Normal 98-107 [facility] Comment on above: Performed By: #### C BC #### [facility] [address] [address] [address] Ashlie [place] CO2 [Moles/Vol] 30.7 mmol/L Normal 21.0-32.0 [facility] Comment on above: Performed By: #### C BC #### [facility] [address] [address] [address] Ashlie [place] Creatinine [Mass/Vol] 0.96 mg/dL Normal 0.55-1.02 [facility] Comment on above: Performed By: #### C BC #### [facility] [address] [address] [address] Ashlie [place] EGFR-AF THAI >60 Normal >=60 [facility] Comment on above: Performed By: #### C BC #### [facility] [address] [address] [address] Ashlie [place] EGFR-NON AF THAI >60 Normal >=60 [facility] Comment on above: Performed By: #### C BC #### [facility] [address] [address] [address] Ashlie [place] Globulin (S) [Mass/Vol] 4.7 g/dL Normal [facility] Comment on above: Performed By: #### C BC #### [facility] [address] [address] [address] Ashlie [place] Glucose [Mass/Vol] 170 mg/dL Critically high 74-106 [facility] Comment on above: Performed By: #### C BC #### [facility] [address] [address] [address] Ashlie [place] Potassium [Moles/Vol] 4.3 mmol/L Normal 3.5-5.1 [facility] Comment on above: Performed By: #### C BC #### [facility] [address] [place] [address] Dr. Ashlie Hills Protein [Mass/Vol] 7.6 g/dL Normal 6.4-8.2 [facility] Comment on above: Performed By: #### C BC #### [facility] [address] [place] [address] Dr. Ashlie Hills Sodium [Moles/Vol] 139 mmol/L Normal 136-145 [facility] Comment on above: Performed By: #### C BC #### [facility] [address] [place] [address] Dr. Ashlie Hills Urea nitrogen [Mass/Vol] 16.0 mg/dL Normal 7.0-18.0 [facility] Comment on above: Performed By: #### C BC #### [facility] [address] [place] [address] Dr. Ashlie Hills Urea nitrogen/Creatinine [Mass ratio] 16.7 mg/mg Normal [facility] Comment on above: Performed By: #### C BC #### [facility] [address] [place] [address] Dr. Ashlie Hills SYMPTOMATIC COVID-19 ANTIGEN on 12-04-2022 EUA Statement SEE BELOW Normal The [facility] Comment on above: Result Comment: This [...] sooner. Performed By: #### C VDAGS #### [facility] [address] [place] [address] Dr. Ashlie [place] SARS-CoV-2 (COVID-19) RNA MADDY+probe Ql (Unsp spec) Negative Normal NEGATIVE [facility] Comment on above: Performed By: #### C VDAGS #### [facility] [address] [place] [address] Dr. Ashlie Hills TROPONIN, HIGH SENSITIVITYon 12-04-2022 HSTROP 8.9 pg/mL Normal 4.0-51.3 [facility] Comment on above: Result Comment: CUT- OFF POINTS HAVE BEEN ESTABLISHED BASED ON THE FOURTH UNIVERSAL DEFINITIONS OF MYOCARDIAL INFARCTION. THE UPPER REFERENCE LIMIT (URL) OF TROPONIN, DEFINED THE 99TH PERCENTILE OF cTnI DISTRIBUTION IN A REFERENCE POPULATION, HAS BEEN CONFIRMED THE DECISION THRESHOLD FOR [place] DIAGNOSIS. Performed By: #### P OCGLUC #### [facility] [address] [place] [address] Dr. Ashlie Hills MICROALBUMIN, RAND URon - mALB 35.8 mg/dL Critically high <=30.0 The [facility] Comment on above: Performed By: #### C VDAGS #### [facility] [address] [place] [address] Dr. Ashlie Hills UA RANDOM W/MICROSCOPICon BACTERIA NONE SEEN Normal NONE SEEN [facility] Comment on above: Performed By: #### C VDAGS #### [facility] [address] [place] [address] Dr. Ashlie Hills Bilirubin Ql (U) Negative Normal NEGATIVE [facility] Comment on above: Performed By: #### C VDAGS #### [facility] [address] [place] [address] Dr. Ashlie Hills CAST SEEN Abnormal NONE SEEN [facility] Comment on above: Performed By: #### C VDAGS #### [facility] [address] [place] [address] Dr. Ashlie Hills Clarity (U) CLEAR Normal CLEAR [facility] Comment on above: Performed By: #### C VDAGS #### [facility] [address] [place] [address] Dr. Ashlie Hills Color (U) YELLOW Normal YELLOW [facility] Comment on above: Performed By: #### C VDAGS #### [facility] [address] [place] [address] Dr. Ashlie Hills Crystals LM Nom (Urine sed) NONE SEEN Normal NONE SEEN [facility] Comment on above: Performed By: #### C VDAGS #### [facility] [address] [place] [address] Dr. Ashlie Hills Epithelial cells LM Ql (Urine sed) MODERATE Abnormal NONE SEEN /RARE [facility] Comment on above: Performed By: #### C VDAGS #### [facility] [address] [place] [address] Dr. Ashlie Hills Glucose Ql (U) Negative Normal NEGATIVE The [facility] Comment on above: Performed By: #### C VDAGS #### [facility] [address] [place] [address] Dr. Ashlie Hills Hemoglobin Ql (U) TRACE-INTACT Abnormal NEGATIVE [facility] Comment on above: Performed By: #### C VDAGS #### [facility] [address] [place] [address] Dr. Ashlie Hills Ketones Ql (U) Negative Normal NEGATIVE The [facility] Comment on above: Performed By: #### C VDAGS #### [facility] [address] [place] [address] Dr. Ashlie Hills LEUKOCYTES Negative Normal NEGATIVE [facility] Comment on above: Performed By: #### C VDAGS #### [facility] [address] [place] [address] Dr. Ashlie Hills MUCOUS NONE SEEN Normal NONE SEEN [facility] Comment on above: Performed By: #### C VDAGS #### [facility] [address] [place] [address] Dr. Ashlie Hills Nitrite Ql (U) Negative Normal NEGATIVE The [facility] Comment on above: Performed By: #### C VDAGS #### [facility] [address] [place] [address] Dr. Ashlie Hills pH (U) 5.0 [pH] Normal 5-9 [facility] Comment on above: Performed By: #### C VDAGS #### [facility] [address] [place] [address] Dr. Ashlie Hills RBC 0-2 Normal 0-2 [facility] Comment on above: Performed By: #### C VDAGS #### [facility] [address] [place] [address] Dr. Ashlie Hills SPEC GRAVITY 1.030 Abnormal 1.005-<=1.025 The [facility] Comment on above: Performed By: #### C VDAGS #### [facility] [address] [place] [address] Dr. Ashlie Hills UA PROTEIN 100 mg/dl Abnormal NEGATIVE/ TRACE [facility] Comment on above: Performed By: #### C VDAGS #### [facility] [address] [place] [address] Dr. Ashlie [place] Urobilinogen Qn (U) 0.2 {Little'U}/dL Normal 0.2 - 1. 0 [facility] Comment on above: Performed By: #### C VDAGS #### [facility] [address] [place] [address] Dr. Ashlie Hills WBC NONE SEEN Normal NONE SEEN [facility] Comment on above: Performed By: #### C VDAGS #### [facility] [address] [place] [address] Dr. Ashlie Hills CBC AUTO DIFFon 05-17-2023 BASO # 0.0 103/ul Normal 0.0-0.1 [facility] Comment on above: Performed By: #### C BC #### [facility] [address] [address] [address] Ashlie [place] Basophils/100 WBC (Bld) 0.3 % Normal 0.2-2.0 [facility] Comment on above: Performed By: #### C BC #### [facility] [address] [address] [address] Ashlie [place] EO # 0.4 103/ul Normal 0.0-0.7 [facility] Comment on above: Performed By: #### C BC #### [facility] [address] [place] [address] Dr. Ashlie [place] Eosinophils/100 WBC (Bld) 3.0 % Normal 0.9-7.0 [facility] Comment on above: Performed By: #### C BC #### [facility] [address] [place] [address] Dr. Ashlie Hills Erythrocyte distribution width (RBC) [Ratio] 15.3 % Critically high 11.0-15.0 [facility] Comment on above: Performed By: #### C BC #### [facility] [address] [place] [address] Dr. Ashlie Hills Hematocrit (Bld) [Volume fraction] 52.4 % Critically high 36.0-48.0 [facility] Comment on above: Performed By: #### C BC #### [facility] [address] [place] [address] Dr. Ashlie [place] Hemoglobin (Bld) [Mass/Vol] 16.8 g/dL Critically high 12.0-16.0 [facility] Comment on above: Performed By: #### C BC #### [facility] [address] [place] [address] Dr. Ashlie Hills IG # 0.04 10e3/ul Critically high 0.00-0.03 [facility] Comment on above: Performed By: #### C BC #### [facility] [address] [place] [address] Dr. Ashlie Hills IG % 0.3 % Normal 0.0-0.5 [facility] Comment on above: Performed By: #### C BC #### [facility] [address] [place] [address] Dr. Ashlie Hills LYMPH # 4.5 103/ul Critically high 1.2-3.8 [facility] Comment on above: Performed By: #### C BC #### [facility] [address] [place] [address] Dr. Ashlie [place] Lymphocytes/100 WBC (Bld) 33.2 % Normal 20.5-60.0 [facility] Comment on above: Performed By: #### C BC #### [facility] [address] [place] [address] Dr. Ashlie Hills MANUAL DIFF REQ NO Normal [facility] Comment on above: Performed By: #### C BC #### [facility] [address] [place] [address] Dr. Ashlie Hills MCH (RBC) [Entitic mass] 28.0 pg Normal 26.7-34.0 [facility] Comment on above: Performed By: #### C BC #### [facility] [address] [place] [address] Dr. Ashlie [place] MCHC (RBC) [Mass/Vol] 32.1 g/dL Normal 29.9-35.2 [facility] Comment on above: Performed By: #### C BC #### [facility] [address] [place] [address] Dr. Ashlie [place] MCV (RBC) [Entitic vol] 87.3 fL Normal 81.0-99.0 [facility] Comment on above: Performed By: #### C BC #### [facility] [address] [place] [address] Dr. Ashlie Hills MONO # 0.8 103/ul Normal 0.3-0.8 [facility] Comment on above: Performed By: #### C BC #### [facility] [address] [place] [address] Dr. Ashlie [place] Monocytes/100 WBC (Bld) 5.7 % Normal 1.7-12.0 [facility] Comment on above: Performed By: #### C BC #### [facility] [address] [address] [address] Ashlie [place] NEUT # 7.8 103/ul Critically high 1.4-6.5 [facility] Comment on above: Performed By: #### C BC #### [facility] [address] [address] [address] Ashlie [place] Neutrophils/100 WBC (Bld) 57.5 % Normal 43.0-75.0 [facility] Comment on above: Performed By: #### C BC #### [facility] [address] [place] [address] Dr. Ashlie [place] Platelet mean volume (Bld) [Entitic vol] 12.0 fL Normal 9.5-13.5 [facility] Comment on above: Performed By: #### C BC #### [facility] [address] [address] [address] Ashlie Hills PLT 152 103/ul Normal 150-450 [facility] Comment on above: Performed By: #### C BC #### [facility] [address] [place] [address] Dr. Ashlie [place] RBC 6.00 106/ul Critically high 4.20-5.40 [facility] Comment on above: Performed By: #### C BC #### [facility] [address] [place] [address] Dr. Ashlie Hills WBC 13.6 103/ul Critically high 4.0-11.0 [facility] Comment on above: Performed By: #### C BC #### [facility] [address] [place] [address] Dr. Ashlie Hills LIPID PROFILEon 11-22-2022 CHOL-HDL RATIO NORM SEE BELOW Normal [facility] Comment on above: Result Comment: 3.3 - 4.4 LOW RISK 4.4 - 7.1 AVERAGE RISK 7.1 - 11.0 MODERATE RISK >11.0 HIGH RISK Performed By: #### C BC #### [facility] [address] [address] [address] Ashlie [place] Cholesterol [Mass/Vol] 139 mg/dL Normal <=200 [facility] Comment on above: Performed By: #### C BC #### [facility] [address] [address] [address] Ashlie [place] Cholesterol in HDL [Mass/Vol] 35 mg/dL Critically low 40-60 [facility] Comment on above: Performed By: #### C BC #### [facility] [address] [address] [address] Ashlie [place] Cholesterol in LDL [Mass/Vol] 67.4 mg/dL Normal [facility] Comment on above: Performed By: #### C BC #### [facility] [address] [address] [address] Ashlie [place] Cholesterol.total/Chol esterol in HDL [Mass ratio] 4.0 {ratio} Normal [facility] Comment on above: Performed By: #### C BC #### [facility] [address] [address] [address] Ashlie [place] HDL NORMAL > or = 60 mg/dl - LOW CARDIOVASCULAR RISK <40 mg/dl - HIGH CARDIOVASCULAR RISK Normal [facility] Comment on above: Performed By: #### C BC #### [facility] [address] [address] [address] Ashlie [place] LDL CALC NORMAL SEE BELOW Normal [facility] Comment on above: Result Comment: <100 mg/dl OPTIMAL 100 - 129 mg/dl NEAR OR ABOVE OPTIMAL 130 - 159 mg/dl BORDERLINE HIGH 160 - 189 mg/dl HIGH >190 mg/dl VERY HIGH Performed By: #### C BC #### [facility] [address] [address] [address] Ashlie [place] Triglyceride [Mass/Vol] 183 mg/dL Critically high <=150 [facility] Comment on above: Performed By: #### C BC #### [facility] [address] [address] [address] Ashlie [place] VLDL CALC 36.6 mg/dL Normal [facility] Comment on above: Performed By: #### C BC #### [facility] [address] [place], [place] [address] Dr. 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 LOCATION: [facility] BREAST COMPOSITION: Almost entirely fatty. [...] M.D. on 11/22/2022 at 12:09 Normal [facility] PROF 14(COMP METB)on 023 Albumin [Mass/Vol] 3.0 g/dL Critically low 3.4-5.0 [facility] Comment on above: Performed By: #### C BC #### [facility] [address] [place], [place] [address] Dr. Ashlie [place] Albumin/Globulin [Mass ratio] 0.6 {ratio} Normal [facility] Comment on above: Performed By: #### C BC #### [facility] [address] [address] [address] Ashlie [place] ALP [Catalytic activity/Vol] 68 U/L Normal 46-116 [facility] Comment on above: Performed By: #### C BC #### [facility] [address] [address] [address] Ashlie [place] ALT [Catalytic activity/Vol] 14 U/L Normal 14-59 [facility] Comment on above: Performed By: #### C BC #### [facility] [address] [place] [address] Dr. Ashlie Hills Anion gap [Moles/Vol] 12.1 mmol/L Normal [facility] Comment on above: Performed By: #### C BC #### [facility] [address] [place] [address] Dr. Ashlie [place] AST [Catalytic activity/Vol] 9 U/L Critically low 15-37 [facility] Comment on above: Performed By: #### C BC #### [facility] [address] [place] [address] Dr. Ashlie [place] Bilirubin [Mass/Vol] 0.4 mg/dL Normal 0.2-1.0 [facility] Comment on above: Performed By: #### C BC #### [facility] [address] [place] [address] Dr. Ashlie [place] Calcium [Mass/Vol] 9.0 mg/dL Normal 8.5-10.1 [facility] Comment on above: Performed By: #### C BC #### [facility] [address] [place] [address] Dr. Ashlie [place] Chloride [Moles/Vol] 105 mmol/L Normal 98-107 [facility] Comment on above: Performed By: #### C BC #### [facility] [address] [place] [address] Dr. Ashlie [place] CO2 [Moles/Vol] 30.7 mmol/L Normal 21.0-32.0 [facility] Comment on above: Performed By: #### C BC #### [facility] [address] [address] [address] Ashlie [place] Creatinine [Mass/Vol] 0.77 mg/dL Normal 0.55-1.02 [facility] Comment on above: Performed By: #### C BC #### [facility] [address] [address] [address] Ashlie [place] EGFR-AF THAI >60 Normal >=60 [facility] Comment on above: Performed By: #### C BC #### [facility] [address] [place] [address] Dr. Ashlie Hills EGFR-NON AF THAI >60 Normal >=60 [facility] Comment on above: Performed By: #### C BC #### [facility] [address] [place] [address] Dr. Ashlie Hills Globulin (S) [Mass/Vol] 4.8 g/dL Normal [facility] Comment on above: Performed By: #### C BC #### [facility] [address] [place] [address] Dr. Ashlie [place] Glucose [Mass/Vol] 162 mg/dL Critically high 74-106 [facility] Comment on above: Performed By: #### C BC #### [facility] [address] [place] [address] Dr. Ashlie [place] Potassium [Moles/Vol] 3.8 mmol/L Normal 3.5-5.1 [facility] Comment on above: Performed By: #### C BC #### [facility] [address] [place] [address] Dr. Ashlie [place] Protein [Mass/Vol] 7.8 g/dL Normal 6.4-8.2 [facility] Comment on above: Performed By: #### C BC #### [facility] [address] [place] [address] Dr. Ashlie [place] Sodium [Moles/Vol] 144 mmol/L Normal 136-145 [facility] Comment on above: Performed By: #### C BC #### [facility] [address] [place] [address] Dr. Ashlie [place] Urea nitrogen [Mass/Vol] 24.0 mg/dL Critically high 7.0-18.0 [facility] Comment on above: Performed By: #### C BC #### [facility] [address] [place] [address] Dr. Ashlie [place] Urea nitrogen/Creatinine [Mass ratio] 31.2 mg/mg Normal [facility] Comment on above: Performed By: #### C BC #### [facility] [address] [place] [address] Dr. Ashlie [place] CBC AUTO DIFFon 10-05-2022 BASO # 0.1 103/ul Normal 0.0-0.1 [facility] Comment on above: Performed By: #### C BC #### [facility] [address] [place] [address] Dr. Ashlie [place] Basophils/100 WBC (Bld) 0.6 % Normal 0.2-2.0 [facility] Comment on above: Performed By: #### C BC #### [facility] [address] [place] [address] Dr. Ashlie [place] EO # 0.3 103/ul Normal 0.0-0.7 [facility] Comment on above: Performed By: #### C BC #### [facility] [address] [place] [address] Dr. Ashlie [place] Eosinophils/100 WBC (Bld) 2.1 % Normal 0.9-7.0 [facility] Comment on above: Performed By: #### C BC #### [facility] [address] [place] [address] Dr. Ashlie [place] Erythrocyte distribution width (RBC) [Ratio] 15.9 % Critically high 11.0-15.0 [facility] Comment on above: Performed By: #### C BC #### [facility] [address] [place] [address] Dr. Ashlie [place] Hematocrit (Bld) [Volume fraction] 51.8 % Critically high 36.0-48.0 [facility] Comment on above: Performed By: #### C BC #### [facility] [address] [place] [address] Dr. Ashlie [place] Hemoglobin (Bld) [Mass/Vol] 16.6 g/dL Critically high 12.0-16.0 [facility] Comment on above: Performed By: #### C BC #### [facility] [address] [place] [address] Dr. Ashlie [place] IG # 0.03 10e3/ul Normal 0.00-0.03 [facility] Comment on above: Performed By: #### C BC #### [facility] [address] [place] [address] Dr. Ashlie [place] IG % 0.2 % Normal 0.0-0.5 [facility] Comment on above: Performed By: #### C BC #### [facility] [address] [place] [address] Dr. Ashlie [place] LYMPH # 3.9 103/ul Critically high 1.2-3.8 [facility] Comment on above: Performed By: #### C BC #### [facility] [address] [place] [address] Dr. Ashlie [place] Lymphocytes/100 WBC (Bld) 31.7 % Normal 20.5-60.0 [facility] Comment on above: Performed By: #### C BC #### [facility] [address] [place] [address] Dr. Ashlie [place]sl MANUAL DIFF REQ NO Normal [facility] Comment on above: Performed By: #### C BC #### [facility] [address] [place] [address] Dr. Ashlie [place] MCH (RBC) [Entitic mass] 27.9 pg Normal 26.7-34.0 [facility] Comment on above: Performed By: #### C BC #### [facility] [address] [place] [address] Dr. Ashlie [place] MCHC (RBC) [Mass/Vol] 32.0 g/dL Normal 29.9-35.2 [facility] Comment on above: Performed By: #### C BC #### [facility] [address] [place] [address] Dr. Ashlie Hills MCV (RBC) [Entitic vol] 87.1 fL Normal 81.0-99.0 [facility] Comment on above: Performed By: #### C BC #### [facility] [address] [place] [address] Dr. Ashlie Hills MONO # 0.7 103/ul Normal 0.3-0.8 [facility] Comment on above: Performed By: #### C BC #### [facility] [address] [address] [address] Ashlie [place] Monocytes/100 WBC (Bld) 5.8 % Normal 1.7-12.0 [facility] Comment on above: Performed By: #### C BC #### [facility] [address] [place] [address] Dr. Ashlie [place] NEUT # 7.3 103/ul Critically high 1.4-6.5 [facility] Comment on above: Performed By: #### C BC #### [facility] [address] [place] [address] Dr. Ashlie [place] Neutrophils/100 WBC (Bld) 59.6 % Normal 43.0-75.0 [facility] Comment on above: Performed By: #### C BC #### [facility] [address] [place] [address] Dr. Ashlie [place] Platelet mean volume (Bld) [Entitic vol] 11.7 fL Normal 9.5-13.5 [facility] Comment on above: Performed By: #### C BC #### [facility] [address] [place] [address] Dr. Ashlie Hills PLT 117 103/ul Critically low 150-450 [facility] Comment on above: Performed By: #### C BC #### [facility] [address] [place], [place] [id number] Dr. Ashlie Hills RBC 5.95 106/ul Critically high 4.20-5.40 [facility] Comment on above: Performed By: #### C BC #### [facility] [address] [place] [address] Dr. Ashlie Hills WBC 12.3 103/ul Critically high 4.0-11.0 [facility] Comment on above: Performed By: #### C BC #### [facility] [address] [place] [address] ABD/PELV W CONon [...] RICCO PICKARD Date: 2022-10-05 13:13 Normal [facility] URINE PROFILEon 3 Bilirubin Ql (U) Negative Normal NEGATIVE [facility] Comment on above: Performed By: #### P OCGLUC #### [facility] [address] [place] [address] Dr. Ashlie Hills Clarity (U) CLEAR Normal CLEAR [facility] Comment on above: Performed By: #### P OCGLUC #### [facility] [address] [place] [address] Dr. Ashlie Hills Color (U) YELLOW Normal YELLOW [facility] Comment on above: Performed By: #### P OCGLUC #### [facility] [address] [place] [address] Dr. Ashlie HOBBS A micrscopic examination will be performed if indicated. Normal [facility] Comment on above: Performed By: #### P OCGLUC #### [facility] [address] [address] [address] Ashlie Hills Glucose Ql (U) Negative Normal NEGATIVE The [facility] Comment on above: Performed By: #### P OCGLUC #### [facility] [address] [address] [address] Ashlie Hills Hemoglobin Ql (U) Negative Normal NEGATIVE [facility] Comment on above: Performed By: #### P OCGLUC #### [facility] [address] [address] [address] Ashlie Hills Ketones Ql (U) Negative Normal NEGATIVE [facility] Comment on above: Performed By: #### P OCGLUC #### [facility] [address] [place] [address] Dr. Ashlie Hills LEUKOCYTES Negative Normal NEGATIVE [facility] Comment on above: Performed By: #### P OCGLUC #### [facility] [address] [address] [address] Ashlie Hills Nitrite Ql (U) Negative Normal NEGATIVE [facility] Comment on above: Performed By: #### P OCGLUC #### [facility] [address] [place] [address] Dr. Ashlie Hills pH (U) 6.0 [pH] Normal 5-9 [facility] Comment on above: Performed By: #### P OCGLUC #### [facility] [address] [place] [address] Dr. Ashile Hills Protein (U) [Mass/Vol] 100 mg/dL Abnormal NEGAT YURY/ TRACE [facility] Comment on above: Performed By: #### P OCGLUC #### [facility] [address] [place] [address] Dr. Ashlie Hills SPEC GRAVITY 1.010 Normal 1.005-<=1.025 [facility] Comment on above: Performed By: #### P OCGLUC #### [facility] [address] [address] [address] Ashlie Hills UR MICRO IND INDICATED Normal [facility] Comment on above: Performed By: #### P OCGLUC #### [facility] [address] [place] [address] Dr. Ashlie Hills Urobilinogen Qn (U) 1.0 {Little'U}/dL Normal 0.2 - 1. 0 [facility] Comment on above: Performed By: #### P OCGLUC #### [facility] [address] [place] [address] Dr. Ashlie Hills LIPASEon 10-05-2022 Lipase [Catalytic activity/Vol] 1771.0 U/L Critically high 73.0-393.0 [facility] Comment on above: Performed By: #### C BC #### [facility] [address] [place] [address] Dr. Ashlie Hills PREG HCG QUALon 10-05-2022 , QUAL Negative Normal NEGATIVE The [facility] Comment on above: Performed By: #### P OCGLUC #### [facility] [address] [place] [address] Dr. Ashlie Hills PROF 14(COMP METB)on 023 Albumin [Mass/Vol] 3.2 g/dL Critically low 3.4-5.0 Th [facility] Comment on above: Performed By: #### C BC #### [facility] [address] [place] [address] Dr. Ashlie Hills Albumin/Globulin [Mass ratio] 0.7 {ratio} Normal [facility] Comment on above: Performed By: #### C BC #### [facility] [address] [place] [address] Dr. Ashlie Hills ALP [Catalytic activity/Vol] 70 U/L Normal 46-116 [facility] Comment on above: Performed By: #### C BC #### [facility] [address] [place] [address] Dr. Ashlie Hills ALT [Catalytic activity/Vol] 11 U/L Critically low 14-59 [facility] Comment on above: Performed By: #### C BC #### [facility] [address] [address] [address] Ashlie Hills Anion gap [Moles/Vol] 10.3 mmol/L Normal Th [facility] Comment on above: Performed By: #### C BC #### [facility] [address] [address] [address] Ashlie Hills AST [Catalytic activity/Vol] 11 U/L Critically low 15-37 [facility] Comment on above: Performed By: #### C BC #### [facility] [address] [address] [address] Ashlie Hills Bilirubin [Mass/Vol] 0.9 mg/dL Normal 0.2-1.0 [facility] Comment on above: Performed By: #### C BC #### [facility] [address] [place] [address] Dr. Ashlie Hills Calcium [Mass/Vol] 9.3 mg/dL Normal 8.5-10.1 [facility] Comment on above: Performed By: #### C BC #### [facility] [address] [place] [address] Dr. Ashlie Hills Chloride [Moles/Vol] 105 mmol/L Normal 98-107 [facility] Comment on above: Performed By: #### C BC #### [facility] [address] [place] [address] Dr. Ashlie Hills CO2 [Moles/Vol] 30.6 mmol/L Normal 21.0-32.0 [facility] Comment on above: Performed By: #### C BC #### [facility] [address] [place] [address] Dr. Ashlie Hills Creatinine [Mass/Vol] 0.62 mg/dL Normal 0.55-1.02 [facility] Comment on above: Performed By: #### C BC #### [facility] [address] [address] [address] Ashlie Hills EGFR-AF THAI >60 Normal >=60 [facility] Comment on above: Performed By: #### C BC #### [facility] [address] [place] [address] Dr. Ashlie Hills EGFR-NON AF THAI >60 Normal >=60 [facility] Comment on above: Performed By: #### C BC #### [facility] [address] [place] [address] Dr. Ashlie Hills Globulin (S) [Mass/Vol] 4.6 g/dL Normal [facility] Comment on above: Performed By: #### C BC #### [facility] [address] [place] [address] Dr. Ashlie Hills Glucose [Mass/Vol] 85 mg/dL Normal 74-106 [facility] Comment on above: Performed By: #### C BC #### [facility] [address] [place] [address] Dr. Ashlie Hills Potassium [Moles/Vol] 3.9 mmol/L Normal 3.5-5.1 [facility] Comment on above: Performed By: #### C BC #### [facility] [address] [place] [address] Dr. Ashlie Hills Protein [Mass/Vol] 7.8 g/dL Normal 6.4-8.2 [facility] Comment on above: Performed By: #### C BC #### [facility] [address] [place] [address] Dr. Ashlie Hills Sodium [Moles/Vol] 142 mmol/L Normal 136-145 [facility] Comment on above: Performed By: #### C BC #### [facility] [address] [place] [address] Dr. Ashlie Hills Urea nitrogen [Mass/Vol] 12.0 mg/dL Normal 7.0-18.0 [facility] Comment on above: Performed By: #### C BC #### [facility] [address] [place] [address] Dr. Ashlie Hills Urea nitrogen/Creatinine [Mass ratio] 19.4 mg/mg Normal [facility] Comment on above: Performed By: #### C BC #### [facility] [address] [place] [address] Dr. Ashlie Hills URINE MICROSCOPIC ONLYon BACTERIA TRACE Abnormal NONE SEEN [facility] Comment on above: Performed By: #### P OCGLUC #### [facility] [address] [place] [address] Dr. Ashlie Hills Bacteria identified Cx Nom (U) NOT INDICATED Normal [facility] Comment on above: Performed By: #### P OCGLUC #### [facility] [address] [place] [address] Dr. Ashlie Hills CAST NONE SEEN Normal NONE SEEN [facility] Comment on above: Performed By: #### P OCGLUC #### [facility] [address] [place] [address] Dr. Ashlie Hills Crystals LM Nom (Urine sed) NONE SEEN Normal NONE SEEN [facility] Comment on above: Performed By: #### P OCGLUC #### [facility] [address] [place] [address] Dr. Ashlie Hills Epithelial cells LM Ql (Urine sed) MODERATE Abnormal NONE SEEN /RARE [facility] Comment on above: Performed By: #### P OCGLUC #### [facility] [address] [place] [address] Dr. Ashlie Hills MUCOUS NONE SEEN Normal NONE SEEN [facility] Comment on above: Performed By: #### P OCGLUC #### [facility] [address] [place] [address] Dr. Ashlie Hills RBC 0-2 Normal 0-2 [facility] Comment on above: Performed By: #### P OCGLUC #### [facility] [address] [place] [address] Dr. Ashlie Hills WBC 0-2 Abnormal NONE SEEN [facility] Comment on above: Performed By: #### P OCGLUC #### [facility] [address] [place] [address] Dr. Ashlie Hills Covid-19 PCR ([facility])on 09-06 SARS-CoV-2 (COVID-19) RNA MADDY+probe Ql (Unsp spec) Detected Abnormal NOT DETECTED [facility] Comment on above: Result Comment: This test is not yet approved or cleared by the [place] FDA. When there are no FDA-approved or cleared tests available, and other criteria are met, FDA can make tests available under an emergency access mechanism called an Emergency Use Authorization (EUA). The EUA for this test is supported by the [place] of Health and Human Service's declaration that [...] used). Performed By: #### C VDAGS #### [facility] [address] [place] [address] Dr. Ashlie Hills INFLUENZA A AND B AGon 09-[address] [facility] SEE BELOW Normal [facility] Comment on above: Result Comment: Nega tive for Flu A protein angiten. Infection due to Flu A cannot be ruled out. Flu A angiten in the sample may be below the detection limit of the test. Performed By: #### I NFLUAB #### [facility] [address] [place] [address] Dr. Ashlie Hills INFLUBNEG SEE BELOW Normal [facility] Comment on above: Result Comment: Nega tive for Flu B protein antigen. Infection due to Flu B cannot be ruled out. Flu B antigen in the sample may be below the detection limit of the test. Performed By: #### I NFLUAB #### [facility] [address] [place] [address] Dr. Ashlie Hills INFLUENZA A AG Negative Normal NEGATIVE SEE COMMENT [facility] Comment on above: Performed By: #### I NFLUAB #### [facility] [address] [place] [address] Dr. Ashlie Hills INFLUENZA B AG Negative Normal NEGATIVE SEE COMMENT [facility] Comment on above: Performed By: #### I NFLUAB #### [facility] [address] [place] [address] ABD/PELV W CONon [...] to at least 10/21/2018, unchanged. https://www.ncbi.nlm .nih.gov/pmc/article s/[email or web address]/ Electronically authenticated by: COLLIN HUERTAS Date: 2022-07-27 14:56 Normal [facility] CREATININEon 07-18-2022 Creatinine [Mass/Vol] 0.81 mg/dL Normal 0.55-1.02 [facility] Comment on above: Performed By: #### C BC #### [facility] [address] [place] [address] Dr. Ashlie Hills EGFR-AF THAI >60 Normal >=60 [facility] Comment on above: Performed By: #### C BC #### [facility] [address] [place] [address] Dr. Ashlie Hills EGFR-NON AF THAI >60 Normal >=60 [facility] Comment on above: Performed By: #### C BC #### [facility] [address] [place] [address] LOW EXT W [...] PATRICIA VELOZ Date: 2022-07-18 14:58 Normal [facility] XR KNEE LT 1_2 Von [...] HATTIE BAUTISTA Date: 2022-07-18 12:00 Normal [facility] Covid-19 PCR (CVDTB)on 06-09 SARS-CoV-2 (COVID-19) RNA MADDY+probe Ql (Unsp spec) Not detected Normal NOT DETECTED [facility] Comment on above: Result Comment: This test is not yet approved or cleared by the [place] FDA. When there are no FDA-approved or cleared tests available, and other criteria are met, FDA can make tests available under an emergency access mechanism called an Emergency Use Authorization (EUA). The EUA for this test is supported by the Plate Worker of Health and Human Service's (HHS's) [...] SARS-CoV-2. Performed By: #### C BC #### [facility] [address] [place] [address] Dr. Ashlie Hills INFLUENZA A AND B AGon 07-06 INFLUANE SEE BELOW Normal [facility] Comment on above: Result Comment: Nega tive for Flu A protein angiten. Infection due to Flu A cannot be ruled out. Flu A angiten in the sample may be below the detection limit of the test. Performed By: #### C BC #### [facility] [address] [place] [address] Dr. Ashlie Hills INFLUBNEG SEE BELOW Normal [facility] Comment on above: Result Comment: Nega tive for Flu B protein antigen. Infection due to Flu B cannot be ruled out. Flu B antigen in the sample may be below the detection limit of the test. Performed By: #### C BC #### [facility] [address] [place] [address] Dr. Ashlie Hills INFLUENZA A AG Negative Normal NEGATIVE SEE COMMENT [facility] Comment on above: Performed By: #### C BC #### [facility] [address] [place] [address] Dr. Ashlie Hills INFLUENZA B AG Negative Normal NEGATIVE SEE COMMENT [facility] Comment on above: Performed By: #### C BC #### [facility] [address] [place] [address] Dr. Ashlie Hills POINT OF CARE GLUCOSEon - Glucose [Mass/Vol] 108 mg/dL Critically high 74-106 [facility] Comment on above: Performed By: #### C BC #### [facility] [address] [place] [address] Dr. Ashlie Hills RAGHU by IFAon 03-07-2022 Antinuclear Antibodies, IFA Negative Normal [facility] Comment on above: Result Comment: Nega tive <1:80 Borderline 1:80 Positive >1:80 ICAP nomenclature: AC-0 For more information about Hep-2 cell patterns use ANApatterns.org, the official website for the International Consensus on Antinuclear Antibody (RAGHU) Patterns (ICAP). Performed By: #### A ROSE #### [facility] [address] [place] [address] Dr. Ashlie Hills IMMUNOFIXATION (TREVON), URINEo n 03-07-2022 TREVON Interpretation:U Comment Normal [facility] Comment on above: Result Comment: No m onoclonality detected. Performed By: #### C BC #### [facility] [address] [place] [address] Dr. Ashlie Hills IMMUNOFIXATION(TREVON),PROTEIN ELEC(PE),[facility] 03-07-2022 Albumin [Mass/Vol] 3.0 g/dL Normal 2.9-4.4 [facility] Comment on above: Performed By: #### I NFLUAB #### [facility] [address] [place] [address] Dr. Ashlie Hills Albumin/Globulin [Mass ratio] 0.8 {ratio} Normal 0.7-1.7 [facility] Comment on above: Performed By: #### I NFLUAB #### [facility] [address] [place] [address] Dr. Ashlie Hills Cycsk-5-Rkobjiff 0.3 g/dL Normal 0.0-0.4 [facility] Comment on above: Performed By: #### I NFLUAB #### [facility] [address] [place] [address] Dr. Ashlie Hills Zzvep-1-Toopbuoo 1.0 g/dL Normal 0.4-1.0 [facility] Comment on above: Performed By: #### I NFLUAB #### [facility] [address] [place] [address] Dr. Ashlie Hills Beta Globulin 1.8 g/dL Critically high 0.7-1.3 The [facility] Comment on above: Performed By: #### I NFLUAB #### [facility] [address] [place] [address] Dr. Ashlie Hills Free [place] Lt Chains,S 45.2 mg/L Critically high 3.3-19.4 [facility] Comment on above: Performed By: #### I NFLUAB #### [facility] [address] [place] [address] Dr. Ashlie Hills Free Lambda Lt Chains,S 40.3 mg/L Critically high 5.7-26.3 [facility] Comment on above: Performed By: #### I NFLUAB #### [facility] [address] [address] [address] Ashlie Hills Gamma Globulin 0.8 g/dL Normal 0.4-1.8 The [facility] Comment on above: Performed By: #### I NFLUAB #### [facility] [address] [place] [address] Dr. Ashlie Hills Globulin (S) [Mass/Vol] 3.9 g/dL Normal 2.2-3.9 [facility] Comment on above: Performed By: #### I NFLUAB #### [facility] [address] [place] [address] Dr. Ashlie Hills Immunofixation Result, Serum Comment Normal [facility] Comment on above: Result Comment: No m onoclonality detected. Performed By: #### I NFLUAB #### [facility] [address] [place] [address] Dr. Ashlie Hills Immunoglobulin A, Qn, Serum 776 mg/dL Critically high 87-352 [facility] Comment on above: Performed By: #### I NFLUAB #### [facility] [address] [place] [address] Dr. Ashlie Hills Immunoglobulin G, Qn, Serum 955 mg/dL Normal 586-1602 [facility] Comment on above: Performed By: #### I NFLUAB #### [facility] [address] [place] [address] Dr. Ashlie Hills Immunoglobulin M, Qn, Serum 39 mg/dL Normal 26-217 [facility] Comment on above: Performed By: #### I NFLUAB #### [facility] [address] [place] [address] Dr. Ashlie Hills [place]/Lambda Ratio, S 1.12 Normal 0.26-1.65 [facility] Comment on above: Performed By: #### I NFLUAB #### [facility] [address] [place] [address] Dr. Ashlie Hills M-Bright Not Observed Normal Not Observed [facility] Comment on above: Performed By: #### I NFLUAB #### [facility] [address] [place] [address] Dr. Ashlie Hills PDF . Normal [facility] Comment on above: Performed By: #### I NFLUAB #### [facility] [address] [place] [address] Dr. Ashlie Hills Please note: Comment Normal [facility] Comment on above: Result Comment: Prot ein electrophoresis scan will follow via computer, mail, or cardroom hand delivery. Performed By: #### I NFLUAB #### [facility] [address] [place] [address] Dr. Ashlie Hills Protein [Mass/Vol] 6.9 g/dL Normal 6.0-8.5 [facility] Comment on above: Performed By: #### I NFLUAB #### [facility] [address] [place] [address] Dr. Ashlie Hills C-PEPTIDE, SERUMon C-Peptide, Serum 3.1 ng/mL Normal 1.1-4.4 [facility] Comment on above: Result Comment: C-Pe ptide reference interval is for fasting patients. Performed By: #### C PEPT #### [facility] [address] [place] [address] Dr. Ashlie Hills HEP B SURFACE ANTIGEN SCREEN on 03-04-2022 HBsAg Screen Negative Normal Negative [facility] Comment on above: Performed By: #### C BC #### [facility] [address] [place] [address] Dr. Ashlie Hills HEPATITIS C VIRUS AB W/ REFL EX QUANTon 03-04-2022 HCV AB <0.1 Normal 0.0-0.9 [facility] Comment on above: Performed By: #### I NFLUAB #### [facility] [address] [address] [address] Ashlie Hills Interpretation: Comment Normal [facility] Comment on above: Result Comment: Nega tive Not infected with HCV, unless recent infection is suspected or other evidence exists to indicate HCV infection. Performed By: #### I NFLUAB #### [facility] [address] [address] [address] Ashlie Hills MICROALBUMIN/ CREATININE RAT IOon 03-04-2022 Albumin, Urine 367.4 ug/mL Normal Not Estab. [facility] Comment on above: Performed By: #### C BC #### [facility] [address] [address] [address] Ashlie Hills Albumin/ Creatinine Ratio 239 mg/g creat Critically high 0-29 [facility] Comment on above: Result Comment: Norm al: 0 - 29 Moderately increased: 30 - 300 Severely increased: >300 Performed By: #### C BC #### [facility] [address] [address] [address] Ashlie Hills Creatinine, Urine 153.9 mg/dL Normal Not Estab. The [facility] Comment on above: Performed By: #### C BC #### [facility] [address] [address] [address] Ashlie Hills VIT D 25-OH LABCORPon 2021 Vitamin D, 25-Hydroxy <4.0 Critically low 30.0-100.0 [facility] Comment on above: Result Comment: Graciela min D deficiency has been defined by the [place] [employer] and an Endocrine Society practice guideline as a level of serum 25-OH vitamin D less than 20 ng/mL (1,2). The Endocrine Society went on to further define vitamin D insufficiency as a level between 21 and 29 ng/mL (2). 1. IOM ([place] [employer]). 2010. Dietary reference intakes for calcium and D. [place]: The National Academies Press. 2. Lynda MF, Keely [place], Leandra LOPEZ, et al. Evaluation, treatment, and prevention of vitamin D deficiency: an Endocrine Society clinical practice guideline. JCEM. 2010; 96(7):1911-30. Performed By: #### C BC #### [facility] [address] [place] [address] Dr. Ashlie Hills GLYCOHEMOGLOBIN A1Con 2021 ADA RECOMMENDATION SEE BELOW Normal [facility] Comment on above: Result Comment: ADA RECOMMENDED LIMIT 4.0 - 6.0 ADA THERAPEUTIC TARGET < 7.0 ACTION SUGGESTED > 7.0 Performed By: #### C VDAGS #### [facility] [address] [place] [address] Dr. Ashlie Hills Glucose [Mass/Vol] 295 mg/dL Normal [facility] Comment on above: Performed By: #### C VDAGS #### [facility] [address] [place] [address] Dr. Ashlie Hills HbA1c (Bld) [Mass fraction] 11.9 % Critically high 4.5-6.2 [facility] Comment on above: Performed By: #### C VDAGS #### [facility] [address] [place] [address] Dr. Aslhie Hills HEMOGRAM AND PLATELon 2021 Hematocrit (Bld) [Volume fraction] 56.3 % Critically high 36.0-48.0 [facility] Comment on above: Performed By: #### C VDAGS #### [facility] [address] [place] [address] Dr. Ashlie Hills Hemoglobin (Bld) [Mass/Vol] 18.0 g/dL Critically high 12.0-16.0 [facility] Comment on above: Performed By: #### C VDAGS #### [facility] [address] [place] [address] Dr. Ashlie Hills MCH (RBC) [Entitic mass] 29.5 pg Normal 26.7-34.0 [facility] Comment on above: Performed By: #### C VDAGS #### [facility] [address] [place] [address] Dr. Ashlie Hills MCHC (RBC) [Mass/Vol] 32.0 g/dL Normal 29.9-35.2 [facility] Comment on above: Performed By: #### C VDAGS #### [facility] [address] [address] [address] Ashlie Hills MCV (RBC) [Entitic vol] 92.1 fL Normal 81.0-99.0 [facility] Comment on above: Performed By: #### C VDAGS #### [facility] [address] [address] [address] Ashlie Hills PLT 123 103/ul Critically low 150-450 [facility] Comment on above: Performed By: #### C VDAGS #### [facility] [address] [address] [address] Ashlie Hills RBC 6.11 106/ul Critically high 4.20-5.40 [facility] Comment on above: Performed By: #### C VDAGS #### [facility] [address] [address] [address] Ashlie Hills WBC 16.4 103/ul Critically high 4.0-11.0 [facility] Comment on above: Performed By: #### C VDAGS #### [facility] [address] [address] [address] Ashlie Hills LIPID PROFILEon 03-03-2022 CHOL-HDL RATIO NORM SEE BELOW Normal [facility] Comment on above: Result Comment: 3.3 - 4.4 LOW RISK 4.4 - 7.1 AVERAGE RISK 7.1 - 11.0 MODERATE RISK >11.0 HIGH RISK Performed By: #### C VDAGS #### [facility] [address] [place] [address] Dr. Ashlie Hills Cholesterol [Mass/Vol] 159 mg/dL Normal <=200 Th [facility] Comment on above: Performed By: #### C VDAGS #### [facility] [address] [address] [address] Ashlie Hills Cholesterol in HDL [Mass/Vol] 40 mg/dL Normal 40-60 [facility] Comment on above: Performed By: #### C VDAGS #### [facility] [address] [address] [address] Ashlie Hills Cholesterol in LDL [Mass/Vol] 81.8 mg/dL Normal [facility] Comment on above: Performed By: #### C VDAGS #### [facility] [address] [address] [address] Ashlie Hills Cholesterol.total/Chol esterol in HDL [Mass ratio] 4.0 {ratio} Normal [facility] Comment on above: Performed By: #### C VDAGS #### [facility] [address] [address] [address] Ashlie Hills HDL NORMAL > or = 60 mg/dl - LOW CARDIOVASCULAR RISK <40 mg/dl - HIGH CARDIOVASCULAR RISK Normal [facility] Comment on above: Performed By: #### C VDAGS #### [facility] [address] [place] [address] Dr. Ashlie Hills LDL CALC NORMAL SEE BELOW Normal [facility] Comment on above: Result Comment: <100 mg/dl OPTIMAL 100 - 129 mg/dl NEAR OR ABOVE OPTIMAL 130 - 159 mg/dl BORDERLINE HIGH 160 - 189 mg/dl HIGH >190 mg/dl VERY HIGH Performed By: #### C VDAGS #### [facility] [address] [address] [address] Ashlie Hills Triglyceride [Mass/Vol] 186 mg/dL Critically high <=150 [facility] Comment on above: Performed By: #### C VDAGS #### [facility] [address] [address] [address] Ashlie Hills VLDL CALC 37.2 mg/dL Normal [facility] Comment on above: Performed By: #### C VDAGS #### [facility] [address] [address] [address] Ashlie Hills RENAL FUNCTION PANELon 03-03 Albumin [Mass/Vol] 3.1 g/dL Critically low 3.4-5.0 Th [facility] Comment on above: Performed By: #### C BC #### [facility] [address] [address] [address] Ashlie Hills Calcium [Mass/Vol] 9.2 mg/dL Normal 8.5-10.1 [facility] Comment on above: Performed By: #### C BC #### [facility] [address] [address] [address] Ashlie Hills Chloride [Moles/Vol] 102 mmol/L Normal 98-107 [facility] Comment on above: Performed By: #### C BC #### [facility] [address] [address] [address] Ashlie Hills CO2 [Moles/Vol] 31.9 mmol/L Normal 21.0-32.0 [facility] Comment on above: Performed By: #### C BC #### [facility] [address] [address] [address] Ashlie Hills Creatinine [Mass/Vol] 0.68 mg/dL Normal 0.55-1.02 [facility] Comment on above: Performed By: #### C BC #### [facility] [address] [place] [address] Dr. Ashlie Hills EGFR-AF THAI >60 Normal >=60 [facility] Comment on above: Performed By: #### C BC #### [facility] [address] [place] [address] Dr. Ashlie Hills EGFR-NON AF THAI >60 Normal >=60 [facility] Comment on above: Performed By: #### C BC #### [facility] [address] [place] [address] Dr. Ashlie Hills Glucose [Mass/Vol] 131 mg/dL Critically high 74-106 [facility] Comment on above: Performed By: #### C BC #### [facility] [address] [place] [address] Dr. Ashlie Hills Phosphate [Mass/Vol] 4.0 mg/dL Normal 2.6-4.7 [facility] Comment on above: Performed By: #### C BC #### [facility] [address] [place] [address] Dr. Ashlie Hills Potassium [Moles/Vol] 4.0 mmol/L Normal 3.5-5.1 [facility] Comment on above: Performed By: #### C BC #### [facility] [address] [place] [address] Dr. Ashlie Hills Sodium [Moles/Vol] 141 mmol/L Normal 136-145 [facility] Comment on above: Performed By: #### C BC #### [facility] [address] [place] [address] Dr. Ashlie Hills Urea nitrogen [Mass/Vol] 17.0 mg/dL Normal 7.0-18.0 [facility] Comment on above: Performed By: #### C BC #### [facility] [address] [place] [address] Dr. Ashlie Hills UA RANDOM W/MICROSCOPICon BACTERIA NONE SEEN Normal NONE SEEN [facility] Comment on above: Performed By: #### I NFLUAB #### [facility] [address] [place] [address] Dr. Ashlie Hills Bilirubin Ql (U) Negative Normal NEGATIVE [facility] Comment on above: Performed By: #### I NFLUAB #### [facility] [address] [place] [address] Dr. Ashlie Hills CAST NONE SEEN Normal NONE SEEN [facility] Comment on above: Performed By: #### I NFLUAB #### [facility] [address] [place] [address] Dr. Ashlie Hills Clarity (U) CLEAR Normal CLEAR [facility] Comment on above: Performed By: #### I NFLUAB #### [facility] [address] [place] [address] Dr. Ashlie Hills Color (U) YELLOW Normal YELLOW [facility] Comment on above: Performed By: #### I NFLUAB #### [facility] [address] [place] [address] Dr. Ashlie Hills Crystals LM Nom (Urine sed) NONE SEEN Normal NONE SEEN [facility] Comment on above: Performed By: #### I NFLUAB #### [facility] [address] [place] [address] Dr. Ashlie Hills Epithelial cells LM Ql (Urine sed) FEW Abnormal NONE SEEN /RARE [facility] Comment on above: Performed By: #### I NFLUAB #### [facility] [address] [address] [address] Ashlie Hills Glucose Ql (U) Negative Normal NEGATIVE The [facility] Comment on above: Performed By: #### I NFLUAB #### [facility] [address] [address] [address] Ashlie Hills Hemoglobin Ql (U) Negative Normal NEGATIVE The [facility] Comment on above: Performed By: #### I NFLUAB #### [facility] [address] [address] [address] Ashlie Hills Ketones Ql (U) Negative Normal NEGATIVE The [facility] Comment on above: Performed By: #### I NFLUAB #### [facility] [address] [place] [address] Dr. Ashlie Hills LEUKOCYTES Negative Normal NEGATIVE [facility] Comment on above: Performed By: #### I NFLUAB #### [facility] [address] [place] [address] Dr. Ashlie Hills MUCOUS NONE SEEN Normal NONE SEEN [facility] Comment on above: Performed By: #### I NFLUAB #### [facility] [address] [address] [address] Ashlie Hills Nitrite Ql (U) Negative Normal NEGATIVE The [facility] Comment on above: Performed By: #### I NFLUAB #### [facility] [address] [place] [address] Dr. Ashlie Hills pH (U) 5.5 [pH] Normal 5-9 [facility] Comment on above: Performed By: #### I NFLUAB #### [facility] [address] [place] [address] Dr. Ashlie Hills RBC 0-2 Normal 0-2 [facility] Comment on above: Performed By: #### I NFLUAB #### [facility] [address] [place] [address] Dr. Ashlie Hills SPEC GRAVITY >=1.030 Abnormal 1.005-<=1.025 [facility] Comment on above: Performed By: #### I NFLUAB #### [facility] [address] [address] [address] Ashlie Hills UA PROTEIN 100 mg/dl Abnormal NEGATIVE/ TRACE [facility] Comment on above: Performed By: #### I NFLUAB #### [facility] [address] [place] [address] Dr. Ashlie Hills Urobilinogen Qn (U) 0.2 {Little'U}/dL Normal 0.2 - 1. 0 [facility] Comment on above: Performed By: #### I NFLUAB #### [facility] [address] [address] [address] Ashlie Hills WBC NONE SEEN Normal NONE SEEN [facility] Comment on above: Performed By: #### I NFLUAB #### [facility] [address] [place] [address] Dr. Ashlie Hills URIC ACID SERUMon 03-03-2022 Urate [Mass/Vol] 5.0 mg/dL Normal 2.6-6.0 [facility] Comment on above: Performed By: #### I NFLUAB #### [facility] [address] [place] [address] Dr. Ashlie Hills URINE T PROTEIN CREAT RATIOo n 03-03-2022 Protein (U) [Mass/Vol] 77.9 mg/dL Critically high <=12.0 [facility] Comment on above: Performed By: #### C VDAGS #### [facility] [address] [place] [address] Dr. Ashlie Hills UR PROT CREAT RAT 0.44 Normal [facility] Comment on above: Performed By: #### C VDAGS #### [facility] [address] [place] [address] Dr. Ashlie Hills URINE CREAT 175.15 mg/dL Normal 20.00-300.00 The [facility] Comment on above: Performed By: #### C VDAGS #### [facility] [address] [place] [address] Dr. Ashlie Hills CULTURE URINEon 12-25-2021 CULTURE URINE Culture Observations: GREATER THAN TWO ORGANISMS PRESENT, HEAVILY MIXED. PLEASE RESUBMIT CLEAN CATCH MID-STREAM URINE IF CLINICALLY INDICATED. Normal [facility] Comment on above: Performed By: #### I NFLUAB #### [facility] [address] [place] [address] Dr. Ashlie Hills CBC AUTO DIFFon 12-24-2021 BASO # 0.1 103/ul Normal 0.0-0.1 [facility] Comment on above: Performed By: #### C BC #### [facility] [address] [place] [address] Dr. Ashlie Hills Basophils/100 WBC (Bld) 0.5 % Normal 0.2-2.0 [facility] Comment on above: Performed By: #### C BC #### [facility] [address] [place] [address] Dr. Ashlie Hills EO # 0.4 103/ul Normal 0.0-0.7 [facility] Comment on above: Performed By: #### C BC #### [facility] [address] [place] [address] Dr. Ashlie Hills Eosinophils/100 WBC (Bld) 2.4 % Normal 0.9-7.0 [facility] Comment on above: Performed By: #### C BC #### [facility] [address] [place] [address] Dr. Ashlie Hills Erythrocyte distribution width (RBC) [Ratio] 14.1 % Normal 11.0-15.0 [facility] Comment on above: Performed By: #### C BC #### [facility] [address] [place] [address] Dr. Ashlie Hills Hematocrit (Bld) [Volume fraction] 55.9 % Critically high 36.0-48.0 [facility] Comment on above: Performed By: #### C BC #### [facility] [address] [place] [address] Dr. Ashlie Hills Hemoglobin (Bld) [Mass/Vol] 17.9 g/dL Critically high 12.0-16.0 [facility] Comment on above: Performed By: #### C BC #### [facility] [address] [place] [address] Dr. Ashlie Hills IG # 0.06 10e3/ul Critically high 0.00-0.03 [facility] Comment on above: Performed By: #### C BC #### [facility] [address] [place] [address] Dr. Ashlie Hills IG % 0.4 % Normal 0.0-0.5 [facility] Comment on above: Performed By: #### C BC #### [facility] [address] [place] [address] Dr. Ashlie Hills LYMPH # 5.8 103/ul Critically high 1.2-3.8 [facility] Comment on above: Performed By: #### C BC #### [facility] [address] [place] [address] Dr. Ashlie Hills Lymphocytes/100 WBC (Bld) 35.4 % Normal 20.5-60.0 [facility] Comment on above: Performed By: #### C BC #### [facility] [address] [place] [address] Dr. Ashlie Hills MANUAL DIFF REQ NO Normal [facility] Comment on above: Performed By: #### C BC #### [facility] [address] [place] [address] Dr. Ashlie Hills MCH (RBC) [Entitic mass] 29.4 pg Normal 26.7-34.0 [facility] Comment on above: Performed By: #### C BC #### [facility] [address] [place] [address] Dr. Ashlie Hills MCHC (RBC) [Mass/Vol] 32.0 g/dL Normal 29.9-35.2 [facility] Comment on above: Performed By: #### C BC #### [facility] [address] [place] [address] Dr. Ashlie Hills MCV (RBC) [Entitic vol] 91.8 fL Normal 81.0-99.0 [facility] Comment on above: Performed By: #### C BC #### [facility] [address] [place] [address] Dr. Ashlie Hills MONO # 0.8 103/ul Normal 0.3-0.8 [facility] Comment on above: Performed By: #### C BC #### [facility] [address] [place] [address] Dr. Ashlie Hills Monocytes/100 WBC (Bld) 4.8 % Normal 1.7-12.0 [facility] Comment on above: Performed By: #### C BC #### [facility] [address] [place] [address] Dr. Ashlie Hills NEUT # 9.3 103/ul Critically high 1.4-6.5 [facility] Comment on above: Performed By: #### C BC #### [facility] [address] [place] [address] Dr. Ashlie Hills Neutrophils/100 WBC (Bld) 56.5 % Normal 43.0-75.0 [facility] Comment on above: Performed By: #### C BC #### [facility] [address] [place] [address] Dr. Ashlie Hills Platelet mean volume (Bld) [Entitic vol] 12.9 fL Normal 9.5-13.5 [facility] Comment on above: Performed By: #### C BC #### [facility] [address] [place] [address] Dr. Ashlie Hills PLT 127 103/ul Critically low 150-450 The [facility] Comment on above: Performed By: #### C BC #### [facility] [address] [place] [address] Dr. Ashlie Hills RBC 6.09 106/ul Critically high 4.20-5.40 [facility] Comment on above: Performed By: #### C BC #### [facility] [address] [place] [address] Dr. Ashlie Hills WBC 16.4 103/ul Critically high 4.0-11.0 [facility] Comment on above: Performed By: #### C BC #### [facility] [address] [place] [address] ABD/PELVIS WO CONon [...] Severe right hip degenerative change. Normal [facility] URINE PROFILEon 2 Bilirubin Ql (U) Negative Normal NEGATIVE [facility] Comment on above: Performed By: #### Tracey LYMAN UMICRO #### [facility] [address] [place] [address] Dr. Ashlie Hills Clarity (U) CLEAR Normal CLEAR [facility] Comment on above: Performed By: #### Tracey LYMAN UMICRO #### [facility] [address] [place] [address] Dr. Ashlie Hills Color (U) DK. ORANGE Abnormal YELLOW [facility] Comment on above: Performed By: #### Tracey LYMAN UMICRO #### [facility] [address] [place] [address] Dr. Ashlie HOBBS A micrscopic examination will be performed if indicated. Normal [facility] Comment on above: Performed By: #### Tracey LYMAN UMICRO #### [facility] [address] [place] [address] Dr. Ashlie Hills Glucose Ql (U) 250 mg/dl Abnormal NEGATIVE The [facility] Comment on above: Performed By: #### Tracey LYMAN UMICRO #### [facility] [address] [place] [address] Dr. Ashlie Hills Hemoglobin Ql (U) Negative Normal NEGATIVE [facility] Comment on above: Performed By: #### Tracey LYMAN UMICRO #### [facility] [address] [address] [address] Ashlie Hills Ketones Ql (U) Negative Normal NEGATIVE The [facility] Comment on above: Performed By: #### Tracey LYMAN UMICRO #### [facility] [address] [place] [address] Dr. Ashlie Hills LEUKOCYTES Negative Normal NEGATIVE [facility] Comment on above: Performed By: #### E RUR, UMICRO #### [facility] [address] [place] [address] Dr. Ashlie Hills Nitrite Ql (U) Negative Normal NEGAT[facility] Comment on above: Performed By: #### E NURA, UMICRO #### [facility] [address] [place] [address] Dr. Ashlie Hills pH (U) 5.0 [pH] Normal 5-9 [facility] Comment on above: Performed By: #### E NURA, UMICRO #### [facility] [address] [place] [address] Dr. Ashlie Hills Protein (U) [Mass/Vol] 100 mg/dL Abnormal NEGAT YURY/ TRACE [facility] Comment on above: Performed By: #### Tracey LYMAN, UMICRO #### [facility] [address] [place] [address] Dr. Ashlie Hills SPEC GRAVITY >=1.030 Abnormal 1.005-<=1.025 [facility] Comment on above: Performed By: #### Tracey LYMAN, UMICRO #### [facility] [address] [place] [address] Dr. Ashlie Hills UR MICRO IND INDICATED Normal [facility] Comment on above: Performed By: #### Tracey LYMAN, UMICRO #### [facility] [address] [place] [address] Dr. Ashlie Hills Urobilinogen Qn (U) 1.0 {Little'U}/dL Normal 0.2 - 1. 0 [facility] Comment on above: Performed By: #### Tracey LYMAN, UMICRO #### [facility] [address] [place] [address] Dr. Ashlie Hills PROF CHEM 8 (BAS METB)on Anion gap [Moles/Vol] 12.1 mmol/L Normal [facility] Comment on above: Performed By: #### I NFLUAB #### [facility] [address] [place] [address] Dr. Ashlie Hills Calcium [Mass/Vol] 9.0 mg/dL Normal 8.5-10.1 The [facility] Comment on above: Performed By: #### I NFLUAB #### [facility] [address] [address] [address] Ashlie Hills Chloride [Moles/Vol] 101 mmol/L Normal 98-107 [facility] Comment on above: Performed By: #### I NFLUAB #### [facility] [address] [address] [address] Ashlie Hills CO2 [Moles/Vol] 29.1 mmol/L Normal 21.0-32.0 [facility] Comment on above: Performed By: #### I NFLUAB #### [facility] [address] [place] [address] Dr. Ashlie Hills Creatinine [Mass/Vol] 0.86 mg/dL Normal 0.55-1.02 [facility] Comment on above: Performed By: #### I NFLUAB #### [facility] [address] [address] [address] Ashlie Hills EGFR-AF THAI >60 Normal >=60 [facility] Comment on above: Performed By: #### I NFLUAB #### [facility] [address] [place] [address] Dr. Ashlie Hills EGFR-NON AF THAI >60 Normal >=60 [facility] Comment on above: Performed By: #### I NFLUAB #### [facility] [address] [address] [address] Ashlie Hills Glucose [Mass/Vol] 236 mg/dL Critically high 74-106 [facility] Comment on above: Performed By: #### I NFLUAB #### [facility] [address] [address] [address] Ashlie Hills Potassium [Moles/Vol] 4.2 mmol/L Normal 3.5-5.1 [facility] Comment on above: Performed By: #### I NFLUAB #### [facility] [address] [address] [address] Ashlie Hills Sodium [Moles/Vol] 138 mmol/L Normal 136-145 [facility] Comment on above: Performed By: #### I NFLUAB #### [facility] [address] [place] [address] Dr. Ashlie Hills Urea nitrogen [Mass/Vol] 11.0 mg/dL Normal 7.0-18.0 [facility] Comment on above: Performed By: #### I NFLUAB #### [facility] [address] [place] [address] Dr. Ashlie Hills Urea nitrogen/Creatinine [Mass ratio] 12.8 mg/mg Normal [facility] Comment on above: Performed By: #### I NFLUAB #### [facility] [address] [place] [address] Dr. Ashlie Hills URINE MICROSCOPIC ONLYon BACTERIA SMALL Abnormal NONE SEEN [facility] Comment on above: Performed By: #### E RUR, UMICRO #### [facility] [address] [place] [address] Dr. Ashlie Hills Bacteria identified Cx Nom (U) INDICATED Normal [facility] Comment on above: Performed By: #### E RUR, UMICRO #### [facility] [address] [place] [address] Dr. Ashlie Hills CAST NONE SEEN Normal NONE SEEN [facility] Comment on above: Performed By: #### E RUR, UMICRO #### [facility] [address] [place] [address] Dr. Ashlie Hills Crystals LM Nom (Urine sed) NONE SEEN Normal NONE SEEN [facility] Comment on above: Performed By: #### E RUR, UMICRO #### [facility] [address] [place] [address] Dr. Ashlie Hills Epithelial cells LM Ql (Urine sed) MODERATE Abnormal NONE SEEN /RARE [facility] Comment on above: Performed By: #### E RUR, UMICRO #### [facility] [address] [place] [address] Dr. Ashlie Hills MUCOUS NONE SEEN Normal NONE SEEN [facility] Comment on above: Performed By: #### E RUR, UMICRO #### [facility] [address] [address] [address] Ashlie Hills RBC 0-2 Normal 0-2 [facility] Comment on above: Performed By: #### E RUR UMICRO #### [facility] [address] [address] [address] Ashlie Hills WBC 0-2 Abnormal NONE SEEN [facility] Comment on above: Performed By: #### E RUR UMICRO #### [facility] [address] [address] [address] Ashlie Hills YEAST PRESENT Abnormal NONE SEEN [facility] Comment on above: Performed By: #### E NURA UMICRO #### [facility] [address] [address] [address] Ashlie Hills HIP RIGHT 1 OR 2 VWS WITH PE LVISon 07-20-2020 HIP RIGHT 1 OR 2 VWS WITH PELVIS [facility] Department of Radiology [address] [place] [id number] Patient Name: MITZI MACIAS : 1970 Sex: F Age: Race: White Pt. Location: Patient Status: O Ordered Date: 07/20/2020 1:45:00 PM Completed Date: 07/20/2020 01:57 PM Requesting Provider: LIZ EISENBERG Attending Provider: LIZ EISENBERG Report Copy To: MCKAYLA BLAS Signs & Symptoms: M25.551 Pain in right hip I10 History: [place] Comments: evaluate Exam: HIP RIGHT 1 OR [...] MRI. Electronically signed: Pipo Acevedo. Transcribed by: [email or web address], User Resident: Electronically Signed by: PIPO ACEVEDO @ 07/20/2020 03:45 PM Normal [facility] Comment on above: Order Comment: evalu ate Vital Signs Date Time Vital Sign Value Performing Clinician Facility 01-29-2025 09:48-0400 Body height 170.2 cm Rain Souza MD Work Phone: [facility] 01-29-2025 09:48-0400 Body mass index (BMI) [Ratio] 56.38 kg/m2 Rain Souza MD Work Phone: [facility] 01-29-2025 09:48-0400 Body weight 163.29 kg Rain Souza MD Work Phone: [facility] 01-29-2025 09:48-0400 Diastolic blood pressure 70 mm[Hg] Rain Souza MD Work Phone: [facility] 01-29-2025 09:48-0400 Heart rate 72 /min Rain Souza MD Work Phone: [facility] 01-29-2025 09:48-0400 Respiratory rate 16 /min Rain Souza MD Work Phone: [facility] 01-29-2025 09:48-0400 SaO2% (BldA) [Mass fraction] 84 % Rain Souza MD Work Phone: [facility] 01-29-2025 09:48-0400 Systolic blood pressure 130 mm[Hg] Rain Souza MD Work Phone: [facility] 01-26-2025 18:11-0400 Body mass index (BMI) [Ratio] 58.64 kg/m2 Mckayla Aichholz PASSENGER SOLICITOR Work Phone: [facility] 01-26-2025 18:11-0400 Body temperature 98.49 [degF] Mckayla Aichholz PASSENGER SOLICITOR Work Phone: [facility] 01-26-2025 18:11-0400 Body weight 169.83 kg Mckayla Aichholz PASSENGER SOLICITOR Work Phone: [facility] 01-26-2025 18:11-0400 Diastolic blood pressure 82 mm[Hg] Mckayla Aichholz PASSENGER SOLICITOR Work Phone: [facility] 01-26-2025 18:11-0400 Heart rate 81 /min Mckayla Aichholz PASSENGER SOLICITOR Work Phone: [facility] 01-26-2025 18:11-0400 Respiratory rate 20 /min Mckayla Aichholz PASSENGER SOLICITOR Work Phone: [facility] 01-26-2025 18:11-0400 SaO2% (BldA) [Mass fraction] 90 % Mckayla Aichholz PASSENGER SOLICITOR Work Phone: [facility] 01-26-2025 18:11-0400 Systolic blood pressure 126 mm[Hg] Mckayla Aichholz PASSENGER SOLICITOR Work Phone: [facility] 12-09-2024 10:19-0400 Body temperature 98.01 [degF] Mckayla Aichholz PASSENGER SOLICITOR Work Phone: [facility] 12-09-2024 10:19-0400 Diastolic blood pressure 76 mm[Hg] Mckayla Aichholz PASSENGER SOLICITOR Work Phone: [facility] 12-09-2024 10:19-0400 Heart rate 71 /min Mckayla Aichholz PASSENGER SOLICITOR Work Phone: [facility] 12-09-2024 10:19-0400 Respiratory rate 20 /min Mckayla Aichholz PASSENGER SOLICITOR Work Phone: [facility] 12-09-2024 10:19-0400 SaO2% (BldA) [Mass fraction] 88 % Mckaylajuvenal Rosenbergz PASSENGER SOLICITOR Work Phone: [facility] 12-09-2024 10:19-0400 Systolic blood pressure 150 mm[Hg] Mckayla Juanjosehholz PASSENGER SOLICITOR Work Phone: [facility] 10-27-2024 14:11-0400 Body height 170.2 cm Mckayla Juanjosehholz PASSENGER SOLICITOR Work Phone: [facility] 10-27-2024 14:11-0400 Body mass index (BMI) [Ratio] 56.51 kg/m2 Mckayla Juanjosehholz PASSENGER SOLICITOR Work Phone: [facility] 10-27-2024 14:11-0400 Body temperature 98.71 [degF] Mckayla Juanjosehholz PASSENGER SOLICITOR Work Phone: [facility] 10-27-2024 14:11-0400 Body weight 163.66 kg Mckayla Juanjosehholz PASSENGER SOLICITOR Work Phone: [facility] 10-27-2024 14:11-0400 Diastolic blood pressure 74 mm[Hg] Mckayla Juanjosehholz PASSENGER SOLICITOR Work Phone: [facility] 10-27-2024 14:11-0400 Heart rate 75 /min Mckayla Aichholz PASSENGER SOLICITOR Work Phone: [facility] 10-27-2024 14:11-0400 Respiratory rate 18 /min Mckayla Juanjosehholz PASSENGER SOLICITOR Work Phone: [facility] 10-27-2024 14:11-0400 SaO2% (BldA) [Mass fraction] 90 % Mckayla Juanjosehholz PASSENGER SOLICITOR Work Phone: [facility] 10-27-2024 14:11-0400 Systolic blood pressure 132 mm[Hg] Mckayla Aichholz PASSENGER SOLICITOR Work Phone: [facility] 10-08-2024 11:21-0400 Body height 170.2 cm Rain Souza MD Work Phone: [facility] 10-08-2024 11:21-0400 Body mass index (BMI) [Ratio] 55.91 kg/m2 Rain Souza MD Work Phone: [facility] 10-08-2024 11:21-0400 Body weight 161.93 kg Rain Souza MD Work Phone: [facility] 10-08-2024 11:21-0400 Diastolic blood pressure 70 mm[Hg] Rain Souza MD Work Phone: [facility] 10-08-2024 11:21-0400 Heart rate 70 /min Rain Souza MD Work Phone: [facility] 10-08-2024 11:21-0400 Respiratory rate 16 /min Rain Souza MD Work Phone: [facility] 10-08-2024 11:21-0400 SaO2% (BldA) [Mass fraction] 91 % Rain Souza MD Work Phone: [facility] 10-08-2024 11:21-0400 Systolic blood pressure 130 mm[Hg] Rain Souza MD Work Phone: [facility] 08-27-2024 17:44-0500 Body mass index (BMI) [Ratio] 57.31 kg/m2 Mckayla Blas PASSENGER SOLICITOR Work Phone: [facility] 08-27-2024 17:44-0500 Body temperature 98.01 [degF] Mckayla Blas PASSENGER SOLICITOR Work Phone: [facility] 08-27-2024 17:44-0500 Body weight 165.97 kg Mckayla Blas PASSENGER SOLICITOR Work Phone: [facility] 08-27-2024 17:44-0500 Diastolic blood pressure 76 mm[Hg] Mckayla Blas PASSENGER SOLICITOR Work Phone: [facility] 08-27-2024 17:44-0500 Heart rate 83 /min Mckayla Blas PASSENGER SOLICITOR Work Phone: [facility] 08-27-2024 17:44-0500 Respiratory rate 18 /min Mckayla Patriciamariyatalia PASSENGER SOLICITOR Work Phone: [facility] 08-27-2024 17:44-0500 SaO2% (BldA) [Mass fraction] 91 % Mckayla Patriciajodie PASSENGER SOLICITOR Work Phone: [facility] 08-27-2024 17:44-0500 Systolic blood pressure 134 mm[Hg] Mckayla Patriciajodie PASSENGER SOLICITOR Work Phone: [facility] 06-11-2024 10:00-0500 Blood Pressure Location Elbert ARAUZ [facility] 06-11-2024 10:00-0500 Diastolic blood pressure 68 mm[Hg] Elbert ARAUZ [facility] 06-11-2024 10:00-0500 Heart rate 76 /min Elbert ARAUZ [facility] 06-11-2024 10:00-0500 Systolic blood pressure 132 mm[Hg] Elbert ARAUZ [facility] 05-27-2024 10:20-0500 Body height 170.2 cm Rain Souza MD Work Phone: [facility] 05-27-2024 10:20-0500 Body mass index (BMI) [Ratio] 56.7 kg/m2 Rain Souza MD Work Phone: [facility] 05-27-2024 10:20-0500 Body weight 164.2 kg Rain Souza MD Work Phone: [facility] 05-27-2024 10:20-0500 Diastolic blood pressure 66 mm[Hg] Rain Souza MD Work Phone: [facility] 05-27-2024 10:20-0500 Heart rate 72 /min Rain Souza MD Work Phone: [facility] 05-27-2024 10:20-0500 Respiratory rate 16 /min Rain Souza MD Work Phone: [facility] 05-27-2024 10:20-0500 Systolic blood pressure 128 mm[Hg] Rain Souza MD Work Phone: [facility] 04-14-2024 10:27-0400 Body height 165.1 cm Mckayla Aichholz PASSENGER SOLICITOR Work Phone: [facility] 04-14-2024 10:27-0400 Body mass index (BMI) [Ratio] 61.01 kg/m2 Mckayla Aichholz PASSENGER SOLICITOR Work Phone: [facility] 04-14-2024 10:27-0400 Body temperature 98.49 [degF] Mckayla Aichholz PASSENGER SOLICITOR Work Phone: [facility] 04-14-2024 10:27-0400 Body weight 166.29 kg Mckayla Aichholz PASSENGER SOLICITOR Work Phone: [facility] 04-14-2024 10:27-0400 Diastolic blood pressure 80 mm[Hg] Mckayla Aichholz PASSENGER SOLICITOR Work Phone: [facility] 04-14-2024 10:27-0400 Heart rate 77 /min Mckayla Aichholz PASSENGER SOLICITOR Work Phone: [facility] 04-14-2024 10:27-0400 Respiratory rate 19 /min Mckayla Aichholz PASSENGER SOLICITOR Work Phone: [facility] 04-14-2024 10:27-0400 SaO2% (BldA) [Mass fraction] 92 % Mckayla Aichholz PASSENGER SOLICITOR Work Phone: [facility] 04-14-2024 10:27-0400 Systolic blood pressure 116 mm[Hg] Mckayla Aichholz PASSENGER SOLICITOR Work Phone: [facility] 03-08-2022 15:00-0400 Body height 170.18 cm Stephanie Tico Other [employer] Other 03-08-2022 15:00-0400 Body temperature 97.6 [degF] Stephanie Tico Other [employer] Other 03-08-2022 15:00-0400 Diastolic blood pressure 72 mm[Hg] Stephanie Tico Other [employer] Other 03-08-2022 15:00-0400 Respiratory rate 20 /min Stephanie Tico Other [employer] Other 03-08-2022 15:00-0400 SaO2% (BldA) [Mass fraction] 91 % Stephanie Tico Other [employer] Other 03-08-2022 15:00-0400 Systolic blood pressure 131 mm[Hg] Stephanie Tico Other [employer] Other 02-20-2022 09:20-0400 Body height 170.18 cm Stephanie Tico Other [employer] Other 02-20-2022 09:20-0400 Body temperature 96.5 [degF] Stephanie Tico Other [employer] Other 02-20-2022 09:20-0400 Diastolic blood pressure 69 mm[Hg] Stephanie Tico Other [employer] Other 02-20-2022 09:20-0400 Respiratory rate 20 /min Stephanie Tico Other [employer] Other 02-20-2022 09:20-0400 SaO2% (BldA) [Mass fraction] 91 % Stephanie Tico Other [employer] Other 02-20-2022 09:20-0400 Systolic blood pressure 129 mm[Hg] Stephanie Tico Other [employer] Other 02-06-2022 10:24-0400 Blood Pressure Location Elbert [facility] [employer] 02-06-2022 10:24-0400 Diastolic blood pressure 76 mm[Hg] Elbert ARAUZ [facility] 02-06-2022 10:24-0400 Heart rate 70 /min [facility]-06-[facility]22 10:24-0400 Respiratory rate 16 /min [facility] 02-06-2022 10:24-0400 Systolic blood pressure 134 mm[Hg] Elbert ARAUZ [facility] Encounters Encounter Date Encounter Type Care Provider Facility Start: 04-17-2025 ambulatory Omero Nas Negrita use SOILS ANALYST-ADULT SPECIALIST Facility:[facility] Start: 03-24-2025 ambulatory Corinne Kellogg MD Facility:[facility] Start: 03-23-2025 End: 03-23-2025 ambulatory Omero Nas Bob SOILS ANALYST-ADULT SPECIALIST Facility:[facility] Start: 03-11-2025 End: 03-11-2025 ambulatory Flynn Urias DPM Facility:[facility] Start: 03-09-2025 End: 03-09-2025 Refill Mckayla Blas NP Work Phone: [facility] Comment on above: Tobacco user; Encounter for smoking cessation counseling Start: 01-29-2025 End: 01-29-2025 Bamboo flowsheet Rain Souza MD Work Phone: [facility] Start: 01-29-2025 End: 01-29-2025 Bamboo flowsheet Rain Souza MD Work Phone: [facility] Start: 01-29-2025 End: 01-29-2025 Clinisync Result Encounter Generic External Data Provider [facility] External Department Unsolicited Start: 01-29-2025 End: 01-29-2025 ambulatory RAIN SOUZA Not Available Start: 01-29-2025 End: 01-29-2025 Office outpatient visit 25 minutes Rain Souza MD Work Phone: [facility] Comment on above: Encounter for dietar y consultation (Primary Dx); Type 2 diabetes mellitus with hyperglycemia, with long-term current use of insulin ([facility]); Vitamin D deficiency; Primary hypertension ; Insulin long-term use ([facility]); Hyperlipemia, mixed ; Microalbuminuria; Class 3 severe obesity due to excess calories with serious comorbidity and body mass index (BMI) of 50.0 to 59.9 in adult ([facility]) Start: 01-26-2025 End: 01-26-2025 ambulatory MCKAYLA BLAS Not Available Start: 01-26-2025 End: 01-26-2025 Patient encounter procedure Mckayla Blas NP Work Phone: [facility] Comment on above: Encounter for subseq uent [...] (CMS-HCC) Start: 01-06-2025 End: 01-06-2025 ambulatory [facility] Start: 12-18-2024 End: 12-19-2024 Refill Mckayla Blas PASSENGER SOLICITOR Work Phone: [facility] Comment on above: Hyperlipidemia, unsp ecified ; Tobacco user; Encounter for smoking cessation counseling Start: 12-09-2024 End: 12-09-2024 Bamboo flowsheet Mckayla Blas PASSENGER SOLICITOR Work Phone: [facility] Start: 12-09-2024 End: 12-09-2024 Bamboo flowsheet Mckayla Blas PASSENGER SOLICITOR Work Phone: [facility] Start: 12-09-2024 End: 12-09-2024 ambulatory MCKAYLA BLAS Not Available Start: 12-09-2024 End: 12-09-2024 Office outpatient visit 25 minutes Mckayla Blas PASSENGER SOLICITOR Work Phone: [facility] Comment on above: Cellulitis [...] Mckayla Blas NP Work Phone: [facility] Comment on above: Primary hypertension ([facility]/HCC) (Primary Dx); Diabetic polyneuropathy associated with type 2 diabetes mellitus ([facility]); Chronic diastolic heart failure ([facility]); Bilateral lower extremity edema; Morbid (severe) obesity due to excess calories ([facility]); Type 2 diabetes mellitus with complication, with long-term current use of insulin ([facility]); Anxiety and depression ([facility]); Cigarette nicotine dependence without complication; Encounter for screening mammogram for malignant neoplasm of breast; Insomnia; Non-seasonal allergic rhinitis, unspecified trigger; Type 2 diabetes mellitus with unspecified complications; Vitamin D deficiency, unspecified; Gastro-esophageal reflux disease without esophagitis; PAD (peripheral artery disease) ([facility]); Gastroesophageal reflux disease, unspecified whether esophagitis present; Venous ulcer of right leg ([facility]) Start: 10-21-2024 End: 10-21-2024 Refill [facility]as [facility] Comment on above: Chronic obstructive pulmonary disease, unspecified Start: 10-08-2024 End: 10-08-2024 Clinisync Result Encounter Mckayla Blas NP Work Phone: [facility] External Department Unsolicited Start: 10-08-2024 End: 10-08-2024 Clinisync Result Encounter Mckayla Blas PASSENGER SOLICITOR Work Phone: [facility] External Department Unsolicited Start: 10-08-2024 End: 10-08-2024 Office outpatient visit 25 minutes Rain Souza MD [facility] Comment on above: Type 2 diabetes asiya itus with hyperglycemia, with long-term current use of insulin ([facility]) (Primary Dx); Encounter for dietary consultation; Vitamin D deficiency; Primary hypertension ([facility]); Insulin long-term use (CMS/HCC); Hyperlipemia, mixed [...] Department Unsolicited Start: 08-08-2024 End: 08-08-2024 ambulatory [facility] Start: 07-17-2024 End: 07-17-2024 Refill Mckayla Blas PASSENGER SOLICITOR Work Phone: [facility] Start: 07-14-2024 End: 07-14-2024 Office outpatient visit 25 minutes Mckayla Blas PASSENGER SOLICITOR Work Phone: [facility] Comment [...] with long-term current use of insulin ([facility]); Tobacco user; Encounter for smoking cessation counseling; Kidney stone; Adrenal mass 1 cm to 4 cm in diameter ([facility]); Radiculopathy, lumbar region; Non-seasonal allergic rhinitis, unspecified trigger; Type 2 diabetes mellitus with unspecified complications ([facility]/HCC) Start: 07-14-2024 End: 07-14-2024 ambulatory MCKAYLA BLAS Not Available Start: 07-05-2024 End: 07-07-2024 Refill Mckayla Blas PASSENGER SOLICITOR Work Phone: [facility] Comment on above: Bilateral lower extr emity edema Start: 06-11-2024 ambulatory Elbert Maysi ty:SHEA Mckee Start: 06-11-2024 End: 06-11-2024 Patient encounter procedure Elbert ARAUZ [facility] Start: 05-27-2024 End: 05-27-2024 Bamboo flowsheet Rain Souza MD Work Phone: [facility] Start: 05-27-2024 End: 05-27-2024 Bamboo flowsheet Rain Souza MD Work Phone: [facility] Start: 05-27-2024 End: 05-27-2024 [...] 04-14-2024 End: 04-14-2024 Bamboo flowsheet Mckayla Blas PASSENGER SOLICITOR Work Phone: [facility] Start: 04-14-2024 End: 04-14-2024 Bamboo flowsheet Mckayla Blas PASSENGER SOLICITOR Work Phone: [facility] Start: 04-14-2024 End: 04-14-2024 Office outpatient visit 25 minutes Mckayla Blas NP Work Phone: [facility] Comment on above: Primary hypertension (CMS/HCC) (Primary Dx); Insomnia; Type 2 diabetes mellitus with complication, with long-term current use of insulin ([facility]); Non-seasonal allergic rhinitis, unspecified trigger; Type [...] Start: 04-05-2024 End: 04-06-2024 Refill Mckayla Aichholz PASSENGER SOLICITOR Work Phone: [facility] Comment on above: Hyperlipidemia, unsp ecified (CMS/HCC); Bilateral lower extremity edema Vitamin D deficiency , unspecified Start: 01-17-2024 Patient encounter procedure Rain Souza MD Work Phone: [facility] Start: 08-17-2023 Refill Mckayla Aichholz PASSENGER SOLICITOR Work Phone: [facility] Comment on above: Vaginal yeast infect ion (Primary Dx) Start: 08-14-2023 Refill Mckayla Aichholz PASSENGER SOLICITOR Work Phone: [facility] Comment on above: Type 2 diabetes asiya itus with unspecified complications (CMS/HCC); Edema, unspecified; Edema Start: 12-05-2022 ambulatory MATEUSZ NICHOLEMIPATHY . Facility:[facility] Start: 12-05-2022 End: 12-06-2022 Evaluation and management of inpatient UMBERTO ALONDRA . Facility:[facility] Start: 11-23-2022 End: 11-23-2022 ambulatory ADULT SPECIALIST MCKAYLA JUANJOSECayetanoJODIE Facility:[facility] Start: 11-22-2022 End: 11-23-2022 ambulatory ADULT SPECIALIST MCKAYLA AICCayetanoJODIE Facility:[facility] Start: 11-17-2022 End: 11-18-2022 ambulatory SUBHASH GASPAR . Facility:[facility] Start: 11-15-2022 End: 11-15-2022 Patient encounter procedure SARAH VEGA [facility] Start: 10-05-2022 End: 10-05-2022 ambulatory MARIANO DIAB . Facility:[facility] Start: 09-21-2022 End: 09-21-2022 ambulatory ADULT SPECIALIST MCKAYLA AICCayetanoMARIYAZ Facility:[facility] Start: 09-14-2022 ambulatory RAFAEL Ribera y:[facility] Start: 08-24-2022 End: [address] CHAPARRO MORTENSEN . Facility:[facility] Start: 08-21-2022 End: 08-22-2022 ambulatory HATTIE Ramsey [facility] Facility:[facility] Start: 07-27-2022 End: 07-28-2022 ambulatory CECILIA NIRMALATray . Facility:[facility] Start: 07-18-2022 End: 07-19-2022 ambulatory CECILIA BJORNRUCHI . Facility:[facility] Start: 07-18-2022 End: 07-19-2022 ambulatory HATTIE Ramsey [facility] Facility:[facility] Start: 07-06-2022 End: 07-06-2022 ambulatory SAYDA BLAS Facility:[facility] Start: 05-11-2022 End: 05-12-2022 ambulatory GIL VALENZUELA . Facility:[facility] Start: 04-25-2022 End: 04-25-[address] CHAPARRO MORTENSEN . Facility:[facility] Start: 04-20-2022 End: 04-21-2022 ambulatory GIL VALENZUELA . Facility:[facility] Start: 03-08-2022 End: 03-08-2022 ambulatory Stephanie Tico Other [employer] Other Start: 03-08-2022 Office outpatient vi sit 15 minutes Stephanie Tico [facility] Start: 03-03-2022 End: 03-04-2022 ambulatory SAYDA BLAS Facility:[facility] Start: 02-20-2022 End: 02-20-2022 ambulatory Stephanie Tico Other [employer] Other Start: 02-20-2022 Office outpatient ne w 45 minutes Tsephanie Tico [facility] Start: 02-06-2022 End: 02-06-2022 Patient encounter procedure Elbert ARAUZ [facility] Start: 01-19-2022 End: 01-20-2022 ambulatory GIL VALENZUELA . Facility:[facility] Start: 12-24-2021 End: 12-24-2021 ambulatory OLE RAMIREZ Facility: Start: 08-26-2020 End: 09-10-2020 Patient encounter procedure MARY TAVERAS Facility:[facility] Start: 10-30-2019 End: 10-30-2019 Emergency department patient visit JAMES BENAVIDEZ [facility] Start: 10-30-2019 End: 10-30-2019 Emergency department patient visit James Benavidez [facility] Start: 11-02-2016 Preoperative state Stephanie Tico Other [employer] Other Procedures Date Procedure Procedure Detail Performing [...] Rain Souza MD Work Phone: Start: 10-08-2024 [facility] UA (CLEAN/CATCH) MICROSCOPIC IF INDICATE Mckayla Blas PASSENGER SOLICITOR Work Phone: Start: 08-27-2024 ALL CBC WITH AUTO DIFF Generic External Data Provider Start: 05-27-2024 Gluc bld gluc mntr d ev cleared fda spec home use Rain Souza MD Work Phone: Start: 05-12-2024 [facility] CREATININE Generic External Data Provider Start: 12-14-2023 Mammography Rain urena MD Work Phone: Start: 11-22-2022 Mammography Mckayla clifford PASSENGER SOLICITOR Work Phone: Start: 10-08-2015 Microscopic observat ion [...] Wellness (AWV) [facility] Start: 10-08-2025 Urine screening for protein Diabetes: Urine Protein Screening [facility] Start: 08-03-2025 Screening for malignant neoplasm of colon [facility] Start: 07-14-2025 Glaucoma screening Diabetes: R etinopathy Screening [facility] Start: 05-28-2025 End: 05-28-2025 Patient encounter procedure [facility] Start: 05-13-2025 Glaucoma screening Diabetes: R etinopathy Screening [facility] Start: 05-01-2025 Hemoglobin A1c measurement Diabetes: Hemoglobin A1C [facility] Start: 04-29-2025 End: 04-29-2025 Patient encounter procedure [facility] Start: 03-09-2025 Influenza vaccination [facility] Start: 01-28-2025 End: 01-28-2025 Patient encounter procedure 01/28/2025 10:50 AM EDT Office Visit [facility] [address] [place] [address] Rain Souza MD [address] [place] [address] [facility] Start: 01-26-2025 End: 01-26-2025 Patient encounter procedure 01/26/2025 6:00 PM EDT Office Visit [facility] [address] [place] [id number] Mckayla Blas NP [address] [place] [id number] [facility] Start: 01-16-2025 Medicare Annual Wellness (AWV) Medicare Annual Wellness (AWV) [facility] Start: 01-07-2025 Hemoglobin A1c measurement Diabetes: Hemoglobin A1C [facility] Start: 12-15-2024 End: 12-27-2025 MG Breast - bilateral Screening Bilateral screening mammogram Imaging Routine Encounter for screening mammogram for malignant neoplasm of breast Expected: 12/15/2024 (Approximate), Expires: 12/27/2025 [facility] Work Phone: Comment on above: Expected: 12/15/2024 (Approximate), Expires: 12/27/2025 Start: 12-13-2024 Screening for malignant neoplasm of breast Mammogram [facility] Start: 11-11-2024 Urine screening for protein Diabetes: Urine Protein Screening [facility] Start: 10-27-2024 End: 10-27-2024 Patient encounter procedure 10/27/2024 2:00 PM EDT Office Visit [facility] [address] [place] [phone] Mckayla Blas NP [address] [place] [phone] [facility] Start: 10-08-2024 End: 10-08-2024 Patient encounter procedure 10/08/2024 11:20 AM EDT Office Visit [facility] [address] [place] [address] Rain Souza MD [address] [place] [address] [facility] Start: 08-27-2024 End: 08-27-2024 Patient encounter procedure 08/27/2024 5:30 PM EST Office Visit [facility] [address] [place] [phone] Mckayla Blas NP [address] [place] [phone] [facility] Start: 08-27-2024 End: 08-27-2025 25-hydroxyvitamin D3 [Mass/volume] in Serum or Plasma Vitamin D 25 hydroxy Lab Routine Vitamin deficiency Expected: 08/27/2024 (Approximate), Expires: 08/27/2025 [facility] Comment on above: Expected: 08/27/2024 (Approximate), Expires: 08/27/2025 Start: 08-27-2024 Hemoglobin A1c measurement Diabetes: Hemoglobin A1C [facility] Start: 08-27-2024 End: 08-27-2025 Hepatic function 2000 panel - Serum or Plasma Hepatic function panel Lab Routine Hyperlipidemia, unspecified (CMS/HCC) Expected: 08/27/2024 (Approximate), Expires: 08/27/2025 [facility] Comment on above: Expected: 08/27/2024 (Approximate), Expires: 08/27/2025 Start: 08-27-2024 End: 08-27-2025 Lipid 1996 panel - Serum or Plasma Lipid panel Lab Routine Mixed hyperlipidemia (CMS/HCC) Expected: 08/27/2024 (Approximate), Expires: 08/27/2025 [facility] Work Phone: Comment on above: Expected: 08/27/2024 (Approximate), Expires: 08/27/2025 Start: 08-27-2024 End: 08-27-2025 Microalbumin/Creatini ne panel in random Urine Microalbumin / creatinine, urine ratio Lab Routine Primary hypertension (CMS/HCC) Type 2 diabetes mellitus with complication, with long-term current use of insulin ([facility]/HCC) Expected: 08/27/2024 (Approximate), Expires: 08/27/2025 [facility] Comment on above: Expected: 08/27/2024 (Approximate), Expires: 08/27/2025 Start: 08-27-2024 End: 08-27-2025 Urate [Mass/volume] in Serum or Plasma Uric acid Lab Routine Gout, unspecified cause, unspecified chronicity, unspecified site Expected: 08/27/2024 (Approximate), Expires: 08/27/2025 [facility] Comment on above: Expected: 08/27/2024 (Approximate), Expires: 08/27/2025 Start: 08-27-2024 End: 08-27-2025 Urinalysis complete panel - Urine Urinalysis with reflex microscopic (clean catch) Lab Routine Primary hypertension ([facility]) Type 2 diabetes mellitus with complication, with long-term current use of insulin ([facility]) Tobacco user Gout, unspecified cause, unspecified chronicity, unspecified site Expected: 08/27/2024 (Approximate), Expires: 08/27/2025 [facility] Comment on above: Expected: 08/27/2024 (Approximate), Expires: 08/27/2025 Start: 08-26-2024 End: 08-26-2024 Patient encounter procedure 08/26/2024 10:30 AM EST Office Visit [facility] [address] [place] [phone] Rain Souza MD [address], [address] [place] [address] [facility] Start: 07-14-2024 End: 07-14-2024 Patient encounter procedure 07/14/2024 6:30 PM EST Office Visit [facility] [address] [place] [address] Mckayla Blas NP [address] [place] [address] [facility] Start: 07-14-2024 End: 07-14-2024 Patient encounter procedure 07/14/2024 10:10 AM EST Office Visit [facility] [address] [place] [phone] Rain Souza MD [address], [address] [place] [address] [facility] Start: 06-06-2024 Influenza vaccination Influenza Vacc ine (#1) [facility] Comment on above: Postponed from 03/09 (Patient Refused) Start: 05-27-2024 End: 05-27-2024 Patient encounter procedure 05/27/2024 9:50 AM EST Office Visit [facility] [address] [place] [address] Rain Souza MD [address] [place] [address] [facility] Start: 05-17-2024 Hemoglobin A1c measurement Diabetes: Hemoglobin A1C [facility] Start: 05-15-2024 End: 05-15-2024 Chart abstracting 05/15/2024 Abstract [facility] [address] [place] [address] Rain Souza MD [address] [place] [address] [facility] Start: 05-15-2024 End: 05-15-2024 Patient encounter procedure 05/15/2024 11:20 AM EST Office Visit [facility] [address] [place] [address] Rain Souza MD [address] [place] [address] [facility] Start: 04-17-2024 End: 04-17-2024 Patient encounter procedure 04/17/2024 3:40 PM EDT Office Visit [facility] [address] [place] [address] Mckayla Blas NP [address] [place] [address] [facility] Start: 04-14-2024 End: 04-14-2024 Patient encounter procedure 04/14/2024 11:00 AM EDT Office Visit [facility] [address] [place] [phone] Mckayla Blas, [employer] [address] [place] [phone] Arrived [facility] Comment on above: Arrived Start: 03-09-2024 Influenza vaccination Influenza Vacc ine (#1) [facility] Start: 02-19-2024 Hemoglobin A1c measurement Diabetes: Hemoglobin A1C [facility] Start: 11-24-2023 Urine screening for protein Diabetes: Urine Protein Screening [facility] Start: 11-23-2023 Screening for malignant neoplasm of breast Mammogram [facility] Start: 10-15-2023 End: 10-15-2023 Patient encounter procedure 10/15/2023 4:30 PM EDT Office Visit [facility] [address] [place] [phone] Mckayla Blas NP [address] [place] [phone] [facility] Start: 08-09-2023 Hemoglobin A1c measurement Diabetes: Hemoglobin A1C [facility] Start: 05-27-2021 Glaucoma screening Diabetes: R etinopathy Screening [facility] Start: 03-09-2020 Influenza vaccination Flu vacc ine (Season Ended) [place], [place] Start: 10-07-2018 Screening for malignant neoplasm of cervix [facility] Start: 2010 Lipid panel Lipid screen [place], [place] Start: 2000 Screening for malignant neoplasm of cervix HPV/Cotest [facility] Start: 1991 Screening for malignant neoplasm of cervix Cervical cancer screen [place], [place] Start: 1989 DTaP/Tdap/Td vaccine (1 - Tdap) DTaP/Tdap/Td vaccine (1 - Tdap) [place], [place] Start: 1985 HIV screening HIV screen [place], [place] Start: 1970 Medicare Annual Wellness (AWV) Medicare Annual Wellness (AWV) [facility] Start: 1970 Screening for malignant neoplasm of colon [facility] BLOOD CULTURE 1 BLOOD CULTURE 1 Lab Routine 12/04/2024 4:[address] [facility] BLOOD CULTURE 2 BLOOD CULTURE 2 Lab Routine 12/04/2024 5:[address] [facility] Immunizations Immunization Date Immunization Notes Care Provider Judie lucas 05-18-2023 influenza, injectabl e, quadrivalent, contains preservative Mckayla Blas NP Work Phone: [facility] 05-18-2023 influenza virus vacc ine, unspecified formulation Rain Souza MD Work Phone: [facility] 07-19-2021 SARS-CoV-2 (COVID-19 ) mRNA BNT-162b2 vax DOC[employer] 10-28-2020 SARS-CoV-2 (COVID-19 ) mRNA BNT-162b2 vax DOCUSYS [facility] 10-08-2020 SARS-CoV-2 (COVID-19 ) mRNA BNT-162b2 vax [employer] [facility] 04-16-2017 influenza virus vacc ine, H5N1, A/ (national stockpile) Mckayla Blas [employer]ENGER [employer]IC[employer] Work Phone: [facility] 04-16-2017 influenza virus vacc ine, unspecified formulation Rain Souza MD Work Phone: [facility] 04-16-2017 influenza, unspecifi ed formulation Elbert REGLA [facility] 04-16-2017 pneumococcal polysaccharide vaccine, 23 valent Rain Souza MD Work Phone: [facility] 05-10-2016 influenza virus vacc ine, H5N1, A/ (national stockpile) Mckayla Blas NP Work Phone: [facility] 05-10-2016 influenza virus vacc ine, unspecified formulation Rain Souza MD Work Phone: [facility] 05-10-2016 influenza, unspecifi ed formulation Elbert ARAUZ [facility] 05-02-2013 influenza virus vacc ine, whole virus Rain Souza MD Work Phone: [facility] 05-02-2013 influenza, injectabl e, quadrivalent, contains preservative Mckayla Wan [employer]ENGER [employer]IC[employer] Work Phone: [facility] 05-02-2013 influenza, whole Elbert BARBARA ERS [facility] 01-29-1998 measles, mumps and rubella virus vaccine Rain Souza MD Work Phone: [facility] Payers Date Payer Category Payer Unknown [id number] 2023 Medicare (Managed Care) 1.2. [id number] 2023 Private Health Insurance [id number] 2023 Medicare [id number] 2018 Medicaid MEDICAID [facility] [id number] 2018-Present [phone] [address] [place] [address] Medicaid [id number] 2013 Medicare [id number] .[id number] 1970 Unknown [id number] 2.16.840.1.764748.3.579.2.6 47 1970 Unknown [id number] 2.16.840.1.971911.3.579.2.5 93 1970 Unknown [id number] 2.16.840.1.445772.3.579.2.5 93 1970 Unknown [id number] 2.16.840.1.818376.3.579.2.5 93 1970 Unknown [id number] 2.16.840.1.061729.3.579.2.5 93 1970 Unknown [id number] 2.16.840.1.056127.3.579.2.5 93 1970 Unknown [id number] 2.16.840.1.333998.3.579.2.5 93 1970 Unknown [id number] 2.16.840.1.590388.3.579.2.5 93 1970 Unknown [id number] 2.16.840.1.749068.3.579.2.5 93 1970 Unknown [id number] 2.16.840.1.711547.3.579.2.5 93 1970 Unknown [id number] 2.16.840.1.068430.3.579.2.5 93 1970 Unknown [id number] 2.16.840.1.005503.3.579.2.5 93 1970 Unknown [id number] 2.16.840.1.043625.3.579.2.5 93 1970 Unknown [id number] 2.16.840.1.454932.3.579.2.5 93 1970 Unknown [id number] 2.16.840.1.972901.3.579.2.5 93 1970 Unknown [id number] 2.16.840.1.068527.3.579.2.5 93 1970 Unknown [id number] 2.16.840.1.076714.3.579.2.5 93 1970 Unknown [id number] 2.16.840.1.236105.3.579.2.5 93 1970 Unknown [id number] 2.16.840.1.215079.3.579.2.5 93 1970 Unknown [id number] 2.16.840.1.166029.3.579.2.5 93 1970 Unknown [id number] 2.16.840.1.143423.3.579.2.5 93 1970 Unknown [id number] 2.16.840.1.244903.3.579.2.5 93 1970 Unknown [id number] 2.16.840.1.475225.3.579.2.5 93 1970 Unknown [id number] 2.16.840.1.009389.3.579.2.7 27 1970 Unknown [id number] 2.16.840.1.662524.3.579.2.7 27 1970 Unknown [id number] 2.16.840.1.993414.3.579.2.1 259 1970 Unknown [id number] 2.16.840.1.738333.3.579.2.1 259 1970 Unknown [id number] 2.16.840.1.918297.3.579.2.1 259 1970 Unknown [id number] 2.16.840.1.832873.3.579.2.1 259 1970 Unknown [id number] 2.16.840.1.453282.3.579.2.1 259 1970 Unknown [id number] 2.16.840.1.754447.3.579.2.1 259 1970 Unknown [id number] 2.16.840.1.644661.3.579.2.1 259 1970 Unknown [id number] 2.16.840.1.729774.3.579.2.1 259 1970 Unknown [id number] 2.16.840.1.902908.3.579.2.1 259 1970 Unknown [id number] 2.16.840.1.109217.3.579.2.1 96 1970 Unknown [id number] 2.16.840.1.449057.3.579.2.1 96 1970 Unknown [id number] 2.16.840.1.089863.3.579.2.1 96 1970 Unknown [id number] 2.16.840.1.620763.3.579.2.1 96 1970 Unknown [id number] 2.16.840.1.156279.3.579.2.1 96 1970 Unknown [id number] 2.16.840.1.826262.3.579.2.1 96 1959 Medicaid [id number] 1959 Private Health Insurance [id number] 1959 Unknown [id number] 2.16.840.1.508938.19 Social History Date Type Detail Facility Start: 02-17-2014 End: 01-29-2025 Tobacco smoking status NHIS Current every day smoker [place], [place] Start: 02-17-1994 History of tobacco use Cigarette Smo ker [place] Start: 02-17-2014 End: 08-26-2024 Cigarettes smoked current (pack per day) - Reported [place] Start: 02-17-2014 Alcohol intake Current drinke r of alcohol (finding) [place] Start: 02-17-2014 Alcohol Comment Rare [place], [place] Start: 1970 Sex Assigned At Not on file M [place], [place] Exposure to SARS-CoV -2 (event) Unable to assess [place] Start: 02-06-2022 Tobacco smoking status Smoker (findi ng) [facility] Start: 07-10-2023 End: 08-26-2024 Sex Assigned At Female [facility] Start: 11-15-2022 End: 06-11-2024 Tobacco smoking status Heavy tobacco smoker (finding) [facility] Start: 07-10-2023 End: 01-29-2025 Tobacco use and [...] Equipment Origin al Text Equipment Identifier Dates [id number] Start: 01-18-2024 USE TO TEST BLOO D SUGAR 4 TIMES DAILY [id number] Start: 07-07-2024 Functional Status Date Assessment Result Facility 01-26-2025 Patient Health [facility] ionnaire 2 item (PHQ-2) [Reported] [facility] 01-26-2025 Trouble falling or s taying asleep, or sleeping too much Not at all 01/26/2025 4:13 PM EDT Mychart, Generic Not at all [facility] 01-26-2025 Feeling tired or hav ing little energy Not at all 01/26/2025 4:13 PM EDT Mychart, Generic Not at all [facility] 01-26-2025 Poor appetite or overeating Not at all 01/26/2025 4:13 PM EDT Mychart, Generic Not at all [facility] 01-26-2025 Feeling bad about yourself-or that you are a failure or have let yourself or your family down Not at all 01/26/2025 4:13 PM EDT Mychart, Generic Not at all [facility] 01-26-2025 Trouble concentratin g on things, such as reading the newspaper or watching television Not at all 01/26/2025 4:13 PM EDT Mychart, Generic Not at all [facility] 01-26-2025 Moving or speaking s o slowly that other people could have noticed. Or the opposite - being so fidgety or restless that you have been moving around a lot more than usual Not at all 01/26/2025 4:13 PM EDT Mychart, Generic Not at all [facility] 01-26-2025 Thoughts that you wo uld be better off , or of hurting yourself in some way Not at all 01/26/2025 4:13 PM EDT Mychart, Generic Not at all [facility] 06-11-2024 Functional Status N/A [facility] 11-15-2022 Functional Status N/A [facility] 02-06-2022 Functional Status N/A [facility] Clinical Notes 01-19-2022 to 02-04-2025 Rain Souza MD - 01/29/2025 9:40 AM Savannah Blas NP - 01/26/2025 6:46 PM Savannah Blas NP - 01/26/2025 6:46 PM EDMicheal Sowcayetanomariyatalia, PASSENGER SOLICITOR - 01/26/2025 6:46 PM EDTPatient Instructions Note Date & Type Note Facility 02-04-2025 Note Please let her know her ECHO showed some improvement in the left side wall thickness, it was severely enlarged, now it is moderate. Important for good BP control to continue to improve this. Everything else looks good. Follow-up as planned in 6 months. Thanks! [facility] 01-29-2025 History of Present illness Narrative Images from the original note were not included. iMtzi Macias is a 54 y.o. female No [...] 25 mg, Oral, 2 times daily HYDROcodone-acetaminophen ([place]) 5-325 MG tablet 1 tablet, 3 times [...] Angiomyolipoma Anxiety and depression 07/10/2023 Asthma ([facility]) 07/10/2023 Body mass index (BMI) 50.0-59.9, adult [place] Cellulitis of left lower extremity Cervical cancer ([facility]) 09/17/2023 Chronic pain of both knees 09/17/2023 COPD (chronic obstructive pulmonary disease) ([facility]) 07/10/2023 COPD exacerbation ([facility]) 09/17/2023 Decreased functional mobility 09/17/2023 Diabetic neuropathy ([facility]) 07/10/2023 Dietary counseling and surveillance Edema 07/10/2023 Elevated sed rate Elevated WBC count Essential (primary) hypertension GERD (gastroesophageal reflux disease) 09/17/2023 Hyperlipidemia 09/17/2023 Hypertension 07/10/2023 Insomnia 09/17/2023 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 ([facility]) Lower extremity edema 09/17/2023 Mixed hyperlipidemia Morbid (severe) obesity due to excess calories ([facility] Obstructive sleep apnea 07/10/2023 PAD (peripheral artery disease) 09/17/2023 Pancreatitis ([facility]) 09/17/2023 Pneumonia 09/17/2023 Proteinuria, unspecified Pulmonary hypertension ([facility]) 09/17/2023 Radiculopathy, lumbar region 09/17/2023 Tobacco user 09/17/2023 Type 2 diabetes mellitus with complication, with long-term current use of insulin ([facility]) 07/10/2023 Unilateral primary osteoarthritis, right hip [...] with long-term current use of insulin ([facility]) - POCT glycosylated hemoglobin (Hb A1C) [...] of 50.0 to 59.9 in adult ([facility]) Diet and exercise reviewed with the patient Follow up in about 4 months (around 06/01/2025). documented in this encounter 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 Associated Problem(s): COPD (chronic [...] 25 mg, Oral, 2 times daily HYDROcodone-acetaminophen ([place]) 5-325 MG tablet 1 tablet, 3 times [...] Angiomyolipoma Anxiety and depression 07/10/2023 Asthma ([facility]) 07/10/2023 Body mass index (BMI) 50.0-59.9, adult [place] Cellulitis of left lower extremity Cervical cancer ([facility]) 09/17/2023 Chronic pain of both knees 09/17/2023 COPD (chronic obstructive pulmonary disease) ([facility]) 07/10/2023 COPD exacerbation ([facility]) 09/17/2023 Decreased functional mobility 09/17/2023 Diabetic neuropathy ([facility]) 07/10/2023 Dietary counseling and surveillance Edema 07/10/2023 Elevated sed rate Elevated WBC count Essential (primary) hypertension GERD (gastroesophageal reflux disease) 09/17/2023 Hyperlipidemia 09/17/2023 Hypertension 07/10/2023 Insomnia 09/17/2023 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 ([facility]) Lower extremity edema 09/17/2023 Mixed hyperlipidemia Morbid (severe) obesity due to excess calories ([facility] Obstructive sleep apnea 07/10/2023 PAD (peripheral artery disease) 09/17/2023 Pancreatitis ([facility]) 09/17/2023 Pneumonia 09/17/2023 Proteinuria, unspecified Pulmonary hypertension ([facility]) 09/17/2023 Radiculopathy, lumbar region 09/17/2023 Tobacco user 09/17/2023 Type 2 diabetes mellitus with complication, with long-term current use of insulin ([facility]) 07/10/2023 Unilateral primary osteoarthritis, right hip [...] is 7.4%!!! 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 Hypertension Please check blood pressure daily and record DASH diet Limit caffeine Take medication as directed Contact office if chest pain, pressure, dizziness, shortness of breath, swelling legs Recommend slow position changes Current meds: hydralazine, lisinopril, Relevant Medications hydrALAZINE (Apresoline) 25 MG tablet lisinopril 20 MG tablet Type 2 diabetes mellitus with complication, with long-term current use of insulin ([facility]) Check blood sugars daily, notify if [...] amitriptyline (Elavil) 25 MG tablet Pulmonary hypertension ([facility]) Has seen [facility] Cardiology Hyperlipidemia On statin therapy [...] (severe) obesity due to excess calories ([facility]) Discussed with patient their BMI (actual, verses [...] Associated Problem(s): Pulmonary hypertension (HCC) Has seen [facility] Cardiology Associated Problem(s): Hypertension Please [...] a yearly basis documented in this encounter [facility] 01-26-2025 Instructions Mckayla Blas NP - 01/26/2025 6:00 PM EDT Please call the [facility] to schedule your mammogram: [phone]- ext [phone] documented in this encounter [facility] 01-06-2025 Note Cardiovascular Medic ine [facility] SUBJECTIVE Chief Complaint Patient presents with Congestive Heart Failure Hypertension Hyperlipidemia Mitzi Macias is a 54 y.o. female here for follow-up. PMHx: HFpEF, HTN, HLD, DM, longstanding heavy smoker, COPD, DANIEL, morbid obesity HPI 01/06/2025 Since last seen she was admitted to [facility] for AMS on 12/05/2024. [...] Bilateral lower extremity edema BMI 50.0-59.9, adult ([facility]) Candidiasis of breast Cardiomegaly Cervical cancer [...] with long-term current use of insulin ([facility]) Unilateral primary osteoarthritis, right hip Vaginal yeast infection Venous insufficiency Bad odor of urine Critical limb ischemia of right lower extremity ([facility]CC) Hyperpigmentation of skin 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 2 diabetes mellitus ([facility]) Myelolipoma of adrenal gland Venous ulcer of right leg ([facility]) Chronic diastolic heart failure ([facility]) Antibiotic-induced yeast infection Cellulitis of left lower extremity Cigarette nicotine dependence without complication Fever 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 ([facility]) 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 Vitamin D deficiency, unspecified Vitamin deficiency Past Medical History: Diagnosis Date COPD (chronic obstructive pulmonary disease) ([facility]) Diabetes mellitus ([facility]) Hyperlipidemia Hypertension Sleep apnea Family History [...] , Rfl: ergocalciferol (Vitamin D-2) 1.25 MG (26184 Units) capsule, Take 1.25 mg by mouth., [...] and at bedtime., Disp: , Rfl: HYDROcodone-acetaminophen ([place]) 5-325 mg tablet, TAKE 1 TABLET BY MOUTH THREE TIMES A DAY NEEDED FOR PAIN MUST LAST 30 DAYS, Disp: , Rfl: insulin aspart (NovoLOG) 100 unit/mL (3 mL) injection pen, Novolog Flexpen U-100 Insulin aspart 100 unit/mL (3 mL) subcutaneous, Disp: , Rfl: insulin glargine (Lantus Solostar U-100 Insulin) 100 unit/mL (3 mL) injection pen (more content not included)... [facility] 01-06-2025 Note Patient is here toda [...] weight gain. Cardiovascular: Positive for leg swelling. [facility] 12-09-2024 History of Present illness Narrative [...] bad light. She was ultimately taken to [facility] ER, no tox screen [...] 25 mg, Oral, 2 times daily HYDROcodone-acetaminophen ([place]) 5-325 MG tablet 1 tablet, 3 times [...] [facility] 07/10/2023 Insomnia 09/17/2023 FDC (current) use of insulin ([facility] [...] List Items Addressed This Visit Hypertension ([facility]) Please check blood pressure daily and record DASH diet Limit caffeine Take medication as directed Contact office if chest pain, pressure, dizziness, shortness of breath, swelling legs Recommend slow position changes Current meds: hydralazine, lisinopril, Type 2 diabetes mellitus with complication, with long-term current use of insulin ([facility]) Check blood sugars daily, notify if [...] not wearing this today Pulmonary hypertension ([facility]) Has seen [facility] Cardiology Morbid (severe) obesity due to excess calories ([facility]) Discussed with patient their BMI (actual, [...] Associated Problem(s): Pulmonary hypertension (CMS/HCC) Has seen [facility] Cardiology Associated Problem(s): Hypertension (CMS/HCC) [...] wearing this today documented in this encounter [facility] 12-09-2024 Instructions Mckayla Blas NP - 12/09/2024 10:00 AM EDT Keep appt with wound care today Keep fu with me, sooner if needed documented in this encounter 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 ([facility] Lower extremity edema 09/17/2023 Mixed hyperlipidemia ([facility] Morbid (severe) obesity due to excess calories ([facility] Obstructive sleep apnea 07/10/2023 PAD (peripheral artery disease) ([facility] 09/17/2023 Pancreatitis 09/17/2023 Pneumonia 09/17/2023 Proteinuria, unspecified Pulmonary hypertension ([facility]) 09/17/2023 Radiculopathy, lumbar region 09/17/2023 Tobacco user 09/17/2023 Type 2 diabetes mellitus with complication, with long-term current use of insulin ([facility]) 07/10/2023 Unilateral primary osteoarthritis, right hip [...] Items Addressed This Visit Diabetic neuropathy ([facility]) - Primary Continue with cintia hudson mgmt is prescribing OARRS reviewed Fu in 3 months Goal: tighter glucose control, this has been improving, latest A1c is 7.4%!!! Hypertension ([facility]) Please check blood pressure daily and record DASH diet Limit caffeine Take medication as directed Contact office if chest pain, pressure, dizziness, shortness of breath, swelling legs Recommend slow position changes Current meds: hydralazine, lisinopril, Relevant Medications hydrALAZINE (Apresoline) 25 MG tablet lisinopril 20 MG tablet Type 2 diabetes mellitus with complication, with long-term current use of insulin ([facility]) Check blood sugars daily, notify if [...] MG chewable tablet Anxiety and depression ([facility]) Current meds: elavil, duloxtine, Relevant Medications DULoxetine (Cymbalta) [address] capsule Bilateral lower extremity edema Limit sodium , elevate legs, furosemide Relevant Medications furosemide (Lasix) 20 MG tablet potassium chloride ER (Micro-K) 10 MEQ ER capsule furosemide (Lasix) 40 MG tablet Insomnia Relevant Medications amitriptyline (Elavil) 25 MG tablet PAD (peripheral artery disease) ([facility]) Asa, statin Quit smoking BP and [...] Relevant Medications ergocalciferol (Vitamin D2) 1.25 MG (60931 UT) capsule Gastro-esophageal reflux disease without esophagitis [...] with long-term current use of insulin ([facility]) Check blood sugars daily, notify if [...] duoneb, albuterol, daliresp, Associated Problem(s): Diabetic neuropathy ([facility]) Continue with cintia hudson is prescribing OARRS reviewed Fu in 3 months Goal: tighter glucose control, this has been improving, latest A1c is 7.4%!!! documented in this encounter [facility] 10-27-2024 Instructions Mckayla Blas NP - 10/27/2024 2:00 PM EDT No dose changes in meds You will be due for mammogram I will send order to [facility], they should call you to schedule If no call, please call [phone] ext [phone] documented in this encounter [facility] 10-08-2024 History of Present illness Narrative [...] or chew. ergocalciferol (Vitamin D2) 1.25 MG (94715 UT) capsule TAKE 1 CAPSULE BY MOUTH [...] 25 mg, Oral, 2 times daily HYDROcodone-acetaminophen ([place]) 5-325 MG tablet 1 tablet, 3 times [...] [facility] 07/10/2023 Insomnia 09/17/2023 FDC (current) use of insulin ([facility] [...] months (around 02/07/2025). documented in this encounter [facility] 08-27-2024 History of Present illness Narrative [...] or chew. ergocalciferol (Vitamin D2) 1.25 MG (87857 UT) capsule TAKE 1 CAPSULE BY MOUTH [...] 25 mg, Oral, 2 times daily HYDROcodone-acetaminophen ([place]) 5-325 MG tablet 1 tablet, 3 times [...] Albuminuria 09/17/2023 Angiomyolipoma Anxiety and depression ([facility]) 07/10/2023 Asthma ([facility]) 07/10/2023 Body mass index (BMI) 50.0-59.9, adult ([facility]) Cellulitis of left lower extremity Cervical cancer ([facility]) 09/17/2023 Chronic pain of both knees 09/17/2023 COPD (chronic obstructive pulmonary disease) ([facility]) 07/10/2023 COPD exacerbation ([facility]) 09/17/2023 Decreased functional mobility 09/17/2023 Diabetic neuropathy ([facility]) 07/10/2023 Dietary counseling and surveillance Edema 07/10/2023 Elevated sed rate Elevated WBC count Essential (primary) hypertension ([facility] GERD (gastroesophageal reflux disease) 09/17/2023 Hyperlipidemia ([facility]) 09/17/2023 Hypertension ([facility]) 07/10/2023 Insomnia 09/17/2023 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 ([facility]) Lower extremity edema 09/17/2023 Mixed hyperlipidemia ([facility]) Morbid (severe) obesity due to excess calories ([facility]) Obstructive sleep apnea 07/10/2023 PAD (peripheral artery disease) ([facility]) 09/17/2023 Pancreatitis 09/17/2023 Pneumonia 09/17/2023 Proteinuria, unspecified Pulmonary hypertension ([facility]) 09/17/2023 Radiculopathy, lumbar region 09/17/2023 Tobacco [...] List Items Addressed This Visit Diabetic neuropathy ([facility]) Continue with cintia hudson mgmt is prescribing OARRS reviewed Fu in 3 months Goal: tighter glucose control Hypertension ([facility]) Please check blood pressure daily and record [...] with long-term current use of insulin ([facility]) Check blood sugars daily, notify if [...] with long-term current use of insulin ([facility]) Check blood sugars daily, notify if [...] (severe) obesity due to excess calories ([facility]) Discussed with patient their BMI (actual, [...] Problem(s): Malignant neoplasm of cervix uteri, unspecified ([facility]) Had in the past, had hysterectomy [...] Asthma (CMS/HCC) Current meds: albuterol, 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 08-08-2024 Note PR Cardiology - [facility] Subjective Mitzi Macias is a [...] Other chronic pain PAD (peripheral artery disease) ([facility]) Pneumonia Encounter for screening mammogram for malignant neoplasm of breast Pulmonary hypertension ([facility]) Radiculopathy, lumbar region Current smoker Type 2 diabetes mellitus with complication, with long-term current use of insulin ([facility]) Unilateral primary osteoarthritis, right hip Vaginal yeast infection Venous insufficiency Bad odor of urine Critical limb ischemia of right lower extremity ([facility]) Hyperpigmentation of skin 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 2 diabetes mellitus ([facility]) Myelolipoma of adrenal gland Venous ulcer of right leg ([facility]) HPI Patient was has history of [...] Date COPD (chronic obstructive pulmonary disease) ([facility]) Diabetes mellitus ([facility]) Hyperlipidemia Hypertension Sleep apnea Past Surgical [...] , Rfl: ergocalciferol (Vitamin D-2) 1.25 MG (82957 Units) capsule, Take 1.25 mg by mouth., [...] and at bedtime., Disp: , Rfl: HYDROcodone-acetaminophen ([place]) 5-325 mg tablet, TAKE 1 TABLET BY [...] TWICE DAILY, Disp: (more content not included)... [facility] 07-14-2024 History of Present illness [...] or chew. 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 ([facility]) Lower extremity edema 09/17/2023 Mixed hyperlipidemia ([facility]) Morbid (severe) obesity due to excess calories ([facility]) Obstructive sleep apnea 07/10/2023 PAD (peripheral artery disease) ([facility]) 09/17/2023 Pancreatitis 09/17/2023 Pneumonia 09/17/2023 Proteinuria, unspecified Pulmonary hypertension ([facility]) 09/17/2023 Radiculopathy, lumbar region 09/17/2023 Tobacco user 09/17/2023 Type 2 diabetes mellitus with complication, with long-term current use of insulin ([facility]) 07/10/2023 Unilateral primary osteoarthritis, right hip [...] Items Addressed This Visit Diabetic neuropathy ([facility]) Continue with tristan EAST reviewed Fu in 3 months COPD (chronic obstructive pulmonary disease) ([facility]) Stable at this time, no changes in meds Encouraged smoking cessation Cont with dr Yañez Hypertension ([facility]) - Primary Please check blood pressure daily and record DASH diet Limit caffeine Take medication as directed Contact office if chest pain, pressure, dizziness, shortness of breath, swelling legs Recommend slow position changes Current meds: hydralazine, lisinopril, Type 2 diabetes mellitus with complication, with long-term current use of insulin ([facility]) Check blood sugars daily, notify if [...] take over prescribing PAD (peripheral artery disease) ([facility]) Asa, statin Quit smoking BP and [...] cm to 4 cm in diameter ([facility]) Continue with Urology Kidney stone Continue with Urology Non-seasonal allergic rhinitis Relevant Medications cetirizine (ZyrTEC) 10 MG tablet Critical limb ischemia of right lower extremity ([facility]) Saw vascular, does have narrowing in arteries in legs, and thus the wounds not healing At this point they strongly urge to quit smoking or risk limb amputation Cont asa and statin Also good blood pressure and sugar control Venous ulcer of right leg ([facility]) Encounter for smoking cessation counseling Relevant Medications nicotine (Nicoderm, Step 1) 21 MG/24HR patch Other Visit Diagnoses Type 2 diabetes mellitus with unspecified complications ([facility]) Quitting smokinppd, chantix not helped, ] [...] with long-term current use of insulin ([facility]) Check blood sugars daily, notify if [...] in 3 months documented in this encounter [facility] 06-11-2024 Hospital Discharge instructions Patient Education [...] require a prescription. You can also purchase kdaj-ccy-gzlvghm medicines. Medicines may have nicotine in them [...] and encouragement. Call telephone quitlines, such as 3-872-LUTJ-NOW, reach out to support groups, or work [...] provider. Document Revised: 06/16/2022 Document Reviewed: 06/16/2022 [employer] Patient Education 2023 [employer]. 06/11/2024 10:39:22 Dietary Guidelines to Help Prevent [...] include: ?8 oz (237 mL) of milk, pvttlso-yslakjloelfo-wjtti milk, and calcium-fortifiedfruit juice. Calcium-fortified means that [...] ?Spinach (cooked), rhubarb, beets, sweet potatoes, and Welsh chard. ?Peanuts. ?Potato chips, filipino fries, and [...] magnesium, fish oil, or vitamin B6. Take cqjb-upe-pkhknih and prescription medicines only as told by [...] Casseroles. Pizza. Lasagna. Frozen meals. Potato chips. Monegasque fries. The items listed above may not [...] provider. Document Revised: 10/05/2022 Document Reviewed: 10/05/2022 [employer] Patient Education 2023 [employer]. Follow Up Care 05/06/2024 08:24:56 With:REGLA PHIPPS, Elbert Joya, URL Address: [facility] [address], [place] [address]- When: Unknown [facility] 05-27-2024 History of Present illness Narrative Mitzi [...] or chew. ergocalciferol (Vitamin D2) 1.25 MG (64326 UT) capsule TAKE 1 CAPSULE BY MOUTH ONE TIME PER WEEK furosemide (LASIX) 20 mg, Oral, Daily PRN, Take in the afternoon as needed furosemide (LASIX) 40 mg, Oral, Daily Glucose Blood (ACCU-CHEK JAQUI PLUS ) 4 times daily hydrALAZINE (APRESOLINE) 25 mg, Oral, 2 times daily HYDROcodone-acetaminophen ([place]) 5-325 MG tablet 1 tablet, 3 times [...] [facility] 07/10/2023 Insomnia 09/17/2023 FDC (current) use of insulin ([facility] [...] with long-term current use of insulin ([facility]) - POCT glucose manually resulted - POCT glycosylated hemoglobin (Hb A1C) docked device We will continue with Lantus 58, lispro 02/16/12 according to meal size, Mounjaro 15 mg once weekly, Farxiga 5 mg once a day Encounter for dietary consultation Vitamin D deficiency Primary hypertension ([facility]) To follow with her PCP Insulin long-term use ([facility]) Hyperlipemia, mixed ([facility]) Continue with Zocor 10 mg once daily Microalbuminuria Class 3 severe obesity due to excess calories with serious comorbidity and body mass index (BMI) of 50.0 to 59.9 in adult ([facility]) Diet and exercise reviewed with the [...] being taken. 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 Hypertension This is [...] or chew. ergocalciferol (Vitamin D2) 1.25 MG (76565 UT) capsule TAKE 1 CAPSULE BY MOUTH ONE TIME PER WEEK furosemide (LASIX) 20 mg, Oral, Daily PRN, Take in the afternoon as needed furosemide (LASIX) 40 mg, Oral, Daily Glucose Blood (ACCU-CHEK JAQUI PLUS ) 4 times daily HumaLOG KWIKPEN 100 UNIT/ML injection Subcutaneous hydrALAZINE (APRESOLINE) 25 mg, Oral, 2 times daily HYDROcodone-acetaminophen ([place]) 5-325 MG tablet 1 tablet, 3 times [...] cessation Cont with dr Yañez Hypertension ([facility]) Stable on current meds Refill meds Relevant Medications hydrALAZINE (Apresoline) 25 MG tablet lisinopril 20 MG tablet Type 2 diabetes mellitus with complication, with long-term current use of insulin ([facility]) Check blood sugars daily, follow w [...] MG chewable tablet Anxiety and depression ([facility]) Relevant Medications DULoxetine (Cymbalta) [address] capsule Bilateral lower extremity edema Stable on current meds Insomnia Relevant Medications amitriptyline (Elavil) 25 MG tablet Tobacco user Urged to quit Non-seasonal allergic rhinitis Relevant Medications cetirizine (ZyrTEC) 10 MG tablet Hyperpigmentation of skin Will try cerevue ointment to see if helps Other Visit Diagnoses Type 2 diabetes mellitus with unspecified complications ([facility]) Relevant Medications dapagliflozin (Farxiga) 10 MG Gastro-esophageal reflux disease without esophagitis Relevant Medications omeprazole (PriLOSEC) [address] capsule Edema, unspecified Relevant Medications potassium chloride ER (Micro-K) 10 MEQ ER capsule Edema Relevant Medications potassium chloride ER (Micro-K) 10 MEQ ER capsule Chronic obstructive pulmonary disease, unspecified ([facility]) Relevant Medications Roflumilast 500 MCG tablet documented in this encounter [facility] 11-15-2022 Hospital Discharge instructions Patient Education [...] include: ?8 oz (237 mL) of milk, sagxelk-ytcjkdjxbmqs-jhzjk milk, and calcium-fortifiedfruit juice. Calcium-fortified means that [...] ?Spinach (cooked), rhubarb, beets, sweet potatoes, and Welsh chard. ?Peanuts. ?Potato chips, filipino fries, and [...] magnesium, fish oil, or vitamin B6. Take zinl-lkj-rjucxsh and prescription medicines only as told by [...] Casseroles. Pizza. Lasagna. Frozen meals. Potato chips. Monegasque fries. The items listed above may not [...] provider. Document Revised: 03/06/2022 Document Reviewed: 03/06/2022 [employer] Patient Education 2022 [employer]. Follow Up Care 02/06/2022 11:44:09 With:SARAH VEGA PA-C, URL Address: [address] [place] [address] When: Unknown [facility] 08-24-2022 Note CONSULTATION CONSULTATION DATE: [...] We maintain her on pain medication with [place] 5/325 t.i.d., diclofenac 75 mg b.i.d. Her [...] her at this point. A refill for [place] 5/325 t.i.d. and diclofenac 75 mg b.i.d. will be sent to the pharmacy. Vitamin compliance and nutrition were discussed and enforced. I did highly encourage her to use exercise bands to increase the strength in her lower extremities. We will see her in three months' time, unless otherwise indicated, and patient agrees. [facility] 05-11-2022 Note CONSULTATION CONSULTATION DATE: [...] 150. Medications include Lyrica 300 mg b.i.d., [place] 5/325 t.i.d., diclofenac 75 mg b.i.d. and [...] her medications today. We will maintain Lyrica, [place] and diclofenac at the set dose and frequency. We will follow-up in the clinic in three months' time. The patient is in agreement to this. Vitamin importance and nutrition were discussed. [facility] 04-20-2022 Note CONSULTATION CONSULTATION DATE: [...] medications include Tylenol, Lyrica 300 mg b.i.d., [place] 5/325 t.i.d., amitriptyline, diclofenac and duloxetine. Patient's [...] be followed up in the clinic. [facility] 03-08-2022 Evaluation note Encounter Date [...] to the DANIEL. Thrombocytopenia is unclear etiology. [employer] Other 08-15-2022 Evaluation note* Encounter Date Diagnosis [...] follow with Dr. Souza and Dr. Arauz. [place] [employer] Other 08-01-2022 Hospital Discharge instructions Patient Education [...] fried and sweet foods. General instructions Take wock-xan-apcoznm and prescription medicines only as told by [...] 04/21/2010 Document Revised: 10/16/2019 Document Reviewed: 07/11/2018 [employer] Patient Education 2020 [employer]. Follow Up Care 01/05/2022 12:02:03 With:REGLA PHIPPS, Elbert R, URL Address: [facility] [address] [place] [address]- [phone] When:Within 6 Month(s) Comments:w/ repeat CT A/P [facility] 07-14-2022 NoteCONSULTATION PROCEDURE DATE: 01/19/2022 [...] pattern and the patient tolerated it well. [facility] Signed and Approved by: GIL VALENZUELA . 01/27/2022 14:15:00[facility]07-14-2022 NoteCONSULTATION CONSULTATION DATE: 01/19/2022 This [...] today. Medications include Lyrica 300 mg b.i.d., [place] 5/325 t.i.d., diclofenac 75 mg b.i.d. and [...] in three months' time unless otherwise indicated. [facility] Signed and Approved by: GIL VALENZUELA . 01/27/2022 14:15:00[facility] App[facility]ments Appointment Date:08/14/2022 09:15:00 AM Scheduled Provider:Elbert ARAUZ MD Location:[facility] Appointment Type:URO Office Visit [facility] evaluation + Plan note Future Appointments Appointment Date:04/22/2024 10:00:00 AM Scheduled Provider:SARAH VEGA PA-C Location:[facility] Appointment Type:URO Office Visit [facility] evaluation note* Diagnosis Type 2 [...] with long-term current use of insulin ([facility]) Non-seasonal allergic rhinitis, unspecified trigger Type 2 diabetes mellitus with unspecified complications ([facility]) Anxiety and depression ([facility]) Gastro-esophageal reflux disease without esophagitis Edema, unspecified Edema Diabetic polyneuropathy associated with type 2 diabetes mellitus ([facility]) Chronic obstructive pulmonary disease, unspecified ([facility]) Pulmonary emphysema, unspecified emphysema type ([facility]) Bilateral lower extremity edema Tobacco user Tobacco use disorder Hyperpigmentation of skin Other dyschromia documented in this encounter [facility] HealthcareEvaluation note* Diagnosis Obstructive sleep apnea- Primary Obstructive sleep apnea (adult) (pediatric) Pulmonary emphysema, unspecified emphysema type ([facility]) Primary hypertension ([facility]) Unspecified essential hypertension Type 2 diabetes mellitus with complication, with long-term current use of insulin ([facility]) Anxiety and depression ([facility]) Bilateral lower extremity edema Pulmonary emphysema, unspecified emphysema type ([facility])- Primary Primary hypertension ([facility]) Unspecified essential hypertension Class 3 severe obesity with serious comorbidity and body mass index (BMI) of 50.0 to 59.9 in adult, unspecified obesity type ([facility]) Obstructive sleep apnea Obstructive sleep apnea (adult) (pediatric) Pulmonary hypertension ([facility]) Other chronic pulmonary heart diseases Tobacco user Tobacco use disorder Cardiomegaly Primary hypertension ([facility])- Primary Unspecified essential hypertension Gastroesophageal reflux disease, unspecified whether esophagitis present Type 2 diabetes mellitus with complication, with long-term current use of insulin ([facility]) Mixed hyperlipidemia ([facility]) Mixed hyperlipidemia Tobacco user Tobacco use disorder Encounter for screening mammogram for malignant neoplasm of breast Chronic obstructive pulmonary disease, unspecified ([facility]) Other specified chronic obstructive pulmonary disease ([facility]) Anxiety and depression ([facility]) Edema, unspecified Edema Hyperlipidemia, unspecified ([facility]) Diabetic polyneuropathy associated with type 2 diabetes mellitus ([facility]) Gout, unspecified cause, unspecified chronicity, unspecified site Non-seasonal allergic rhinitis, unspecified trigger Bilateral lower extremity edema COPD exacerbation ([facility]) Obstructive chronic bronchitis with exacerbation Pulmonary emphysema, unspecified emphysema type ([facility]) Venous insufficiency Unspecified venous (peripheral) insufficiency Candidiasis of breast COPD exacerbation ([facility])- Primary Obstructive chronic bronchitis with exacerbation [...] depressive disorder, single episode, mild (HCC) ([facility]) Major depressive disorder, single episode, mild [...] (CMS/HCC) Unspecified essential hypertension Insulin long-term use ([facility]) Encounter for long-term (current) use of insulin Hyperlipemia, mixed ([facility]) Mixed hyperlipidemia Microalbuminuria Proteinuria Class 3 severe obesity due to excess calories with serious comorbidity and body mass index (BMI) of 50.0 to 59.9 in adult ([facility]) documented in this encounter [facility] HealthcareEvaluation note* Diagnosis Hyperlipidemia, unspecified ([facility]) Bilateral lower extremity edema documented in this encounter [facility] HealthcareEvaluation note* Diagnosis Vitamin D deficiency, unspecified documented in this encounter [facility] HealthcareEvaluation note* Diagnosis Obstructive sleep apnea- Primary Obstructive sleep apnea (adult) (pediatric) Pulmonary emphysema, unspecified emphysema type ([facility]) Primary hypertension ([facility]) Unspecified essential hypertension Type 2 diabetes mellitus with complication, with long-term current use of insulin ([facility] Anxiety and depression ([facility]) Bilateral lower extremity edema Pulmonary emphysema, unspecified emphysema type ([facility])- Primary Primary hypertension ([facility]) Unspecified essential hypertension Class 3 severe obesity with serious comorbidity and body mass index (BMI) of 50.0 to 59.9 in adult, unspecified obesity type ([facility]) Obstructive sleep apnea Obstructive sleep apnea (adult) (pediatric) Pulmonary hypertension ([facility]) Other chronic pulmonary heart diseases Tobacco user Tobacco use disorder Cardiomegaly Primary hypertension ([facility])- Primary Unspecified essential hypertension Gastroesophageal reflux disease, unspecified whether esophagitis present Type 2 diabetes mellitus with complication, with long-term current use of insulin ([facility]) Mixed hyperlipidemia ([facility]) Mixed hyperlipidemia Tobacco user Tobacco use disorder Encounter for screening mammogram for malignant neoplasm of breast Chronic obstructive pulmonary disease, unspecified [place] Other specified chronic obstructive pulmonary disease ([facility]) Anxiety and depression ([facility]) Edema, unspecified Edema Hyperlipidemia, unspecified ([facility]) Diabetic polyneuropathy associated with type 2 diabetes mellitus ([facility]) Gout, unspecified cause, unspecified chronicity, unspecified site Non-seasonal allergic rhinitis, unspecified trigger Bilateral lower extremity edema COPD exacerbation ([facility]) Obstructive chronic bronchitis with exacerbation Pulmonary emphysema, unspecified emphysema type ([facility]) Venous insufficiency Unspecified venous (peripheral) insufficiency Candidiasis of breast COPD exacerbation ([facility] Primary Obstructive chronic bronchitis with exacerbation Pulmonary hypertension ([facility]) Other chronic pulmonary heart diseases Class [...] of breast Chronic obstructive pulmonary disease, unspecified ([facility]) Other specified chronic obstructive pulmonary disease (CMS/HCC) Anxiety and depression (CMS/HCC) Edema, unspecified Edema Hyperlipidemia, unspecified ([facility]) Diabetic polyneuropathy associated with type 2 diabetes mellitus ([facility]) Gout, unspecified cause, unspecified chronicity, unspecified site Non-seasonal allergic rhinitis, unspecified trigger Bilateral lower extremity edema COPD exacerbation ([facility]) Obstructive chronic bronchitis with exacerbation Pulmonary emphysema, unspecified emphysema type (CMS/HCC) Venous insufficiency Unspecified venous (peripheral) insufficiency Candidiasis of breast COPD exacerbation (CMS/HCC)- Primary Obstructive chronic bronchitis with exacerbation Pulmonary hypertension (CMS/HCC) Other chronic pulmonary heart diseases Class 3 severe obesity with serious comorbidity and body mass index (BMI) of 50.0 to 59.9 in adult, unspecified obesity type ([facility]) Encounter for subsequent annual wellness visit (AWV) in Medicare patient- Primary Type 2 diabetes mellitus with unspecified complications (CMS/HCC) Pulmonary emphysema, unspecified emphysema type (CMS/HCC) Moderate persistent asthma without complication (CMS/HCC) Primary hypertension (CMS/HCC) Unspecified essential hypertension Type 2 diabetes mellitus with complication, with long-term current use of insulin ([facility]) Class 3 severe obesity with serious comorbidity and body mass index (BMI) of 50.0 to 59.9 in adult, unspecified obesity type (CMS/HCC) Tobacco user Tobacco use disorder Other headache syndrome Malignant neoplasm of cervix uteri, unspecified (CMS/HCC) Other specified disorders of adrenal gland (CMS/HCC) Major depressive disorder, single episode, mild (HCC) ([facility]) Major depressive disorder, single episode, mild Non-pressure [...] with long-term current use of insulin ([facility]) Non-seasonal allergic rhinitis, unspecified trigger Type 2 diabetes mellitus with unspecified complications ([facility]) Anxiety and depression ([facility]) Gastro-esophageal reflux disease without esophagitis Edema, unspecified Edema Diabetic polyneuropathy associated with type 2 diabetes mellitus ([facility]) Chronic obstructive pulmonary disease, unspecified ([facility]) Pulmonary emphysema, unspecified emphysema type (CMS/HCC) Bilateral lower extremity edema Tobacco user Tobacco use disorder Hyperpigmentation of skin Other dyschromia Primary hypertension (CMS/HCC)- Primary Unspecified essential hypertension Diabetic polyneuropathy associated with type 2 diabetes mellitus (CMS/HCC) Pulmonary emphysema, unspecified emphysema type (CMS/HCC) Critical limb ischemia of right lower extremity (CMS/HCC) PAD (peripheral artery disease) ([facility]) Unspecified peripheral vascular disease Gastroesophageal reflux disease, unspecified whether esophagitis present Bilateral lower extremity edema Venous ulcer of right leg ([facility]) Type 2 diabetes mellitus with complication, with long-term current use of insulin ([facility]) Tobacco user Tobacco use disorder Encounter for smoking cessation counseling Kidney stone Calculus of kidney Adrenal mass 1 cm to 4 cm in diameter ([facility]) Radiculopathy, lumbar region Thoracic or lumbosacral neuritis or radiculitis, unspecified Non-seasonal allergic rhinitis, unspecified trigger Type 2 diabetes mellitus with unspecified complications (CMS/HCC) documented in this encounter [facility] HealthcareEvaluation note* Diagnosis Obstructive sleep apnea- Primary Obstructive sleep apnea (adult) (pediatric) Pulmonary emphysema, unspecified emphysema type (CMS/HCC) Primary hypertension ([facility]) Unspecified essential hypertension Type 2 diabetes mellitus with complication, with long-term current use of insulin ([facility]) Anxiety and depression ([facility]) Bilateral lower extremity edema Pulmonary emphysema, unspecified emphysema type ([facility]/HCC)- Primary Primary hypertension ([facility]) Unspecified essential hypertension Class 3 severe obesity with serious comorbidity and body mass index (BMI) of 50.0 to 59.9 in adult, unspecified obesity type ([facility]) Obstructive sleep apnea Obstructive sleep apnea (adult) (pediatric) Pulmonary hypertension ([facility]) Other chronic pulmonary heart diseases Tobacco user Tobacco use disorder Cardiomegaly Primary hypertension ([facility])- Primary Unspecified essential hypertension Gastroesophageal reflux disease, unspecified whether esophagitis present Type 2 diabetes mellitus with complication, with long-term current use of insulin ([facility]) Mixed hyperlipidemia ([facility]) Mixed hyperlipidemia Tobacco user Tobacco use disorder Encounter for screening mammogram for malignant neoplasm of breast Chronic obstructive pulmonary disease, unspecified ([facility]) Other specified chronic obstructive pulmonary disease ([facility]) Anxiety and depression ([facility]) Edema, unspecified Edema Hyperlipidemia, unspecified ([facility]) Diabetic polyneuropathy associated with type 2 diabetes mellitus ([facility]) Gout, unspecified cause, unspecified chronicity, unspecified site Non-seasonal allergic rhinitis, unspecified trigger Bilateral lower extremity edema COPD exacerbation ([facility]) Obstructive chronic bronchitis with exacerbation Pulmonary emphysema, unspecified emphysema type ([facility]) Venous insufficiency Unspecified venous (peripheral) insufficiency Candidiasis of breast COPD exacerbation ([facility])- Primary Obstructive chronic bronchitis with exacerbation Pulmonary hypertension ([facility]) Other chronic pulmonary heart diseases Class 3 severe obesity with serious comorbidity and body mass index (BMI) of 50.0 to 59.9 in adult, unspecified obesity type ([facility]) Encounter for subsequent annual wellness visit (AWV) in Medicare patient- Primary Type 2 diabetes mellitus with unspecified complications ([facility]) Pulmonary emphysema, unspecified emphysema type ([facility]) Moderate persistent asthma without complication ([facility]) Primary hypertension ([facility]) Unspecified essential hypertension Type 2 diabetes mellitus with complication, with long-term current use of insulin ([facility]) Class 3 severe obesity with serious comorbidity and body mass index (BMI) of 50.0 to 59.9 in adult, unspecified obesity type ([facility]) Tobacco user Tobacco use disorder Other [...] with long-term current use of insulin ([facility]) Non-seasonal allergic rhinitis, unspecified trigger Type 2 diabetes mellitus with unspecified complications (CMS/HCC) Anxiety and depression ([facility]) Gastro-esophageal reflux disease without esophagitis Edema, [...] Critical limb ischemia of right lower extremity ([facility]) PAD (peripheral artery disease) ([facility]) Unspecified peripheral vascular disease Gastroesophageal reflux disease, unspecified whether esophagitis present Bilateral lower extremity edema Venous ulcer of right leg ([facility]) Type 2 diabetes mellitus with complication, with long-term current use of insulin (CMS/HCC) Tobacco user Tobacco use disorder Encounter for smoking cessation counseling Kidney stone Calculus of kidney Adrenal mass 1 cm to 4 cm in diameter ([facility]) Radiculopathy, lumbar region Thoracic or lumbosacral neuritis or radiculitis, unspecified Non-seasonal allergic rhinitis, unspecified trigger Type 2 diabetes mellitus with unspecified complications (CMS/HCC) Anxiety and depression (CMS/HCC)- Primary Morbid (severe) obesity due to excess calories ([facility]) Body mass index (BMI) 50.0-59.9, adult ([facility]) Malignant neoplasm of cervix uteri, unspecified ([facility]) Diabetic polyneuropathy associated with type 2 diabetes mellitus ([facility]) Chronic diastolic heart failure ([facility]) Chronic diastolic heart failure Primary hypertension ([facility]) Unspecified essential hypertension 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 ([facility]) Gastroesophageal reflux disease, unspecified whether esophagitis present Bilateral lower extremity edema Type 2 diabetes mellitus with complication, with long-term current use of insulin ([facility]) Tobacco user Tobacco use disorder Mixed hyperlipidemia ([facility]) Mixed hyperlipidemia Gout, unspecified cause, unspecified chronicity, unspecified site Vitamin deficiency Unspecified vitamin deficiency Gastro-esophageal reflux disease without esophagitis Edema, unspecified Edema Hyperlipidemia, unspecified ([facility]) Encounter for smoking cessation counseling Venous ulcer of right leg ([facility]) Antibiotic-induced yeast infection documented in this encounter [facility] HealthcareEvaluation note* Diagnosis Obstructive sleep apnea- Primary Obstructive sleep apnea (adult) (pediatric) Pulmonary emphysema, unspecified emphysema type ([facility]) Primary hypertension ([facility]) Unspecified essential hypertension Type 2 diabetes mellitus with complication, with long-term current use of insulin ([facility]) Anxiety and depression ([facility]) Bilateral lower extremity edema Pulmonary emphysema, unspecified emphysema type ([facility])- Primary Primary hypertension ([facility]) Unspecified essential hypertension Class 3 severe obesity with serious comorbidity and body mass index (BMI) of 50.0 to 59.9 in adult, unspecified obesity type Obstructive sleep apnea Obstructive sleep apnea (adult) (pediatric) Pulmonary hypertension ([facility]) Other chronic pulmonary heart diseases Tobacco user Tobacco use disorder Cardiomegaly Primary hypertension ([facility])- Primary Unspecified essential hypertension Gastroesophageal reflux disease, unspecified whether esophagitis present Type 2 diabetes mellitus with complication, with long-term current use of insulin ([facility]) Mixed hyperlipidemia ([facility]) Mixed hyperlipidemia Tobacco user Tobacco use disorder Encounter for screening mammogram for malignant neoplasm of breast Chronic obstructive pulmonary disease, unspecified Other specified chronic obstructive pulmonary disease Anxiety and depression ([facility]) Edema, unspecified Edema Hyperlipidemia, unspecified ([facility]) Diabetic polyneuropathy associated with type 2 diabetes mellitus ([facility]) Gout, unspecified cause, unspecified chronicity, unspecified [...] depressive disorder, single episode, mild (HCC) ([facility]) Major depressive disorder, single episode, mild [...] lower extremity (CMS/HCC) PAD (peripheral artery disease) ([facility] Unspecified peripheral vascular disease Gastroesophageal reflux disease, unspecified whether esophagitis present Bilateral lower extremity edema Venous ulcer of right leg ([facility]) Type 2 diabetes mellitus with complication, with long-term current use of insulin ([facility]) Tobacco user Tobacco use disorder Encounter for smoking cessation counseling Kidney stone Calculus of kidney Adrenal mass 1 cm to 4 cm in diameter ([facility]) Radiculopathy, lumbar region Thoracic or lumbosacral neuritis or radiculitis, unspecified Non-seasonal allergic rhinitis, unspecified trigger Type 2 diabetes mellitus with unspecified complications Anxiety and depression ([facility])- Primary Morbid (severe) obesity due to excess calories ([facility]) Body mass index (BMI) 50.0-59.9, adult ([facility]) Malignant neoplasm of cervix uteri, unspecified Diabetic polyneuropathy associated with type 2 diabetes mellitus ([facility]) Chronic diastolic heart failure ([facility]) Chronic diastolic heart failure Primary hypertension ([facility]) Unspecified essential hypertension 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 Gastroesophageal reflux disease, unspecified whether esophagitis present Bilateral lower extremity edema Type 2 diabetes mellitus with complication, with long-term current use of insulin ([facility]) Tobacco user Tobacco use disorder Mixed hyperlipidemia ([facility] Mixed hyperlipidemia Gout, unspecified cause, unspecified chronicity, [...] (current) use of insulin Hyperlipemia, mixed ([facility]) Mixed hyperlipidemia Microalbuminuria Proteinuria Class 3 severe obesity due to excess calories with serious comorbidity and body mass index (BMI) of 50.0 to 59.9 in adult documented in this encounter [facility] HealthcareEvaluation note* Diagnosis Obstructive sleep apnea- Primary Obstructive sleep apnea (adult) (pediatric) Pulmonary emphysema, unspecified emphysema type ([facility]) Primary hypertension ([facility]) Unspecified essential hypertension Type 2 diabetes mellitus with complication, with long-term current use of insulin ([facility]) Anxiety and depression ([facility]) Bilateral lower extremity edema Pulmonary emphysema, unspecified emphysema type (CMS/HCC)- Primary Primary hypertension ([facility]) Unspecified essential hypertension Class 3 severe obesity with serious comorbidity and body mass index (BMI) of 50.0 to 59.9 in adult, unspecified obesity type Obstructive sleep apnea Obstructive sleep apnea (adult) (pediatric) Pulmonary hypertension (CMS/HCC) Other chronic pulmonary heart diseases Tobacco user Tobacco use disorder Cardiomegaly Primary hypertension ([facility])- Primary Unspecified essential hypertension Gastroesophageal reflux disease, unspecified whether esophagitis present Type 2 diabetes mellitus with complication, with long-term current use of insulin ([facility]) Mixed hyperlipidemia ([facility]) Mixed hyperlipidemia Tobacco user Tobacco use disorder Encounter for screening mammogram for malignant neoplasm of breast Chronic obstructive pulmonary disease, unspecified Other specified chronic obstructive pulmonary disease Anxiety and depression ([facility]) Edema, unspecified Edema Hyperlipidemia, unspecified ([facility]) Diabetic polyneuropathy associated with type 2 diabetes mellitus ([facility]) Gout, unspecified cause, unspecified chronicity, unspecified site Non-seasonal allergic rhinitis, unspecified trigger Bilateral lower extremity edema COPD exacerbation ([facility]) Obstructive chronic bronchitis with exacerbation Pulmonary emphysema, unspecified emphysema type (CMS/HCC) Venous insufficiency Unspecified venous (peripheral) insufficiency Candidiasis of breast COPD exacerbation ([facility])- Primary Obstructive chronic bronchitis with exacerbation Pulmonary hypertension ([facility]) Other chronic pulmonary heart diseases Class 3 severe obesity with serious comorbidity and body mass index (BMI) of 50.0 to 59.9 in adult, unspecified obesity type Encounter for subsequent annual wellness visit (AWV) in Medicare patient- Primary Type 2 diabetes mellitus with unspecified complications Pulmonary emphysema, unspecified emphysema type ([facility]) Moderate persistent asthma without complication ([facility]) Primary hypertension ([facility]) Unspecified essential hypertension Type 2 diabetes mellitus with complication, with long-term current use of insulin ([facility]) Class 3 severe obesity with serious comorbidity and body mass index (BMI) of 50.0 to 59.9 in adult, unspecified obesity type Tobacco user Tobacco use disorder Other headache syndrome Malignant neoplasm of cervix uteri, unspecified Other specified disorders of adrenal gland Major depressive disorder, single episode, mild (HCC) ([facility]) Major depressive disorder, single episode, mild 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 exposed Chronic respiratory failure, unspecified whether with hypoxia or hypercapnia Disorder of adrenal gland, unspecified Non-pressure chronic ulcer of other part of right lower leg limited to breakdown of skin ([facility]) Non-recurrent acute suppurative otitis media of left ear without spontaneous rupture of tympanic membrane Primary hypertension ([facility])- Primary Unspecified essential hypertension Insomnia Insomnia, unspecified Type 2 diabetes mellitus with complication, with long-term current use of insulin ([facility]) Non-seasonal allergic rhinitis, unspecified trigger Type 2 diabetes mellitus with unspecified complications Anxiety and depression ([facility]) Gastro-esophageal reflux disease without esophagitis Edema, unspecified Edema Diabetic polyneuropathy associated with type 2 diabetes mellitus ([facility]) Chronic obstructive pulmonary disease, unspecified Pulmonary emphysema, unspecified emphysema type ([facility]) Bilateral lower extremity edema Tobacco user Tobacco use disorder Hyperpigmentation of skin Other dyschromia Primary hypertension ([facility])- Primary Unspecified essential hypertension Diabetic polyneuropathy associated with type 2 diabetes mellitus ([facility]) Pulmonary emphysema, unspecified emphysema type ([facility]) Critical limb ischemia of right lower extremity ([facility]) PAD (peripheral artery disease) ([facility]) Unspecified peripheral vascular disease Gastroesophageal reflux disease, unspecified whether esophagitis present Bilateral lower extremity edema Venous ulcer of right leg ([facility]) Type 2 diabetes mellitus with complication, with long-term current use of insulin ([facility]) Tobacco user Tobacco use disorder Encounter for smoking cessation counseling Kidney stone Calculus of kidney Adrenal mass 1 cm to 4 cm in diameter ([facility]) Radiculopathy, lumbar region Thoracic or lumbosacral neuritis or radiculitis, unspecified Non-seasonal allergic rhinitis, unspecified trigger Type 2 diabetes mellitus with unspecified complications Anxiety and depression ([facility])- Primary Morbid (severe) obesity due to excess calories ([facility]) Body mass index (BMI) 50.0-59.9, adult ([facility]) Malignant neoplasm of cervix uteri, unspecified Diabetic polyneuropathy associated with type 2 diabetes mellitus ([facility]) Chronic diastolic heart failure ([facility]) Chronic diastolic heart failure Primary hypertension ([facility]) Unspecified essential hypertension 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 Gastroesophageal reflux disease, unspecified whether esophagitis present Bilateral lower extremity edema Type 2 diabetes mellitus with complication, with long-term current use of insulin ([facility]) Tobacco user Tobacco use disorder Mixed hyperlipidemia ([facility]) Mixed hyperlipidemia Gout, unspecified cause, unspecified chronicity, unspecified site Vitamin deficiency Unspecified vitamin deficiency Gastro-esophageal reflux disease without esophagitis Edema, unspecified Edema Hyperlipidemia, unspecified ([facility]) Encounter for smoking cessation counseling Venous ulcer of right leg ([facility]) Antibiotic-induced yeast infection Chronic obstructive pulmonary disease, unspecified documented in this encounter [facility] HealthcareEvaluation note* Diagnosis Obstructive sleep apnea- Primary Obstructive sleep apnea (adult) (pediatric) Pulmonary emphysema, unspecified emphysema type ([facility]) Primary hypertension ([facility]) Unspecified essential hypertension Type 2 diabetes mellitus with complication, with long-term current use of insulin ([facility]) Anxiety and depression ([facility]) Bilateral lower extremity edema Pulmonary emphysema, unspecified emphysema type ([facility])- Primary Primary hypertension ([facility]) Unspecified essential hypertension Class 3 severe obesity with serious comorbidity and body mass index (BMI) of 50.0 to 59.9 in adult, unspecified obesity type Obstructive sleep apnea Obstructive sleep apnea (adult) (pediatric) Pulmonary hypertension ([facility]) Other chronic pulmonary heart diseases Tobacco user Tobacco use disorder Cardiomegaly Primary hypertension ([facility])- Primary Unspecified essential hypertension Gastroesophageal reflux disease, unspecified whether esophagitis present Type 2 diabetes mellitus with complication, with long-term current use of insulin ([facility]) Mixed hyperlipidemia ([facility]) Mixed hyperlipidemia Tobacco user Tobacco use disorder Encounter for screening mammogram for malignant neoplasm of breast Chronic obstructive pulmonary disease, unspecified Other specified chronic obstructive pulmonary disease Anxiety and depression ([facility]) Edema, unspecified Edema Hyperlipidemia, unspecified ([facility]) Diabetic polyneuropathy associated with type 2 diabetes mellitus ([facility]) Gout, unspecified cause, unspecified chronicity, unspecified site Non-seasonal allergic rhinitis, unspecified trigger Bilateral lower extremity edema COPD exacerbation ([facility]) Obstructive chronic bronchitis with exacerbation Pulmonary emphysema, unspecified emphysema type ([facility]) Venous insufficiency Unspecified venous (peripheral) insufficiency Candidiasis of breast COPD exacerbation ([facility])- Primary Obstructive chronic bronchitis with exacerbation Pulmonary hypertension ([facility]) Other chronic pulmonary heart diseases Class 3 severe obesity with serious comorbidity and body mass index (BMI) of 50.0 to 59.9 in adult, unspecified obesity type Encounter for subsequent annual wellness visit (AWV) in Medicare patient- Primary Type 2 diabetes mellitus with unspecified complications Pulmonary emphysema, unspecified emphysema type ([facility]) Moderate persistent asthma without complication (CMS/HCC) Primary hypertension ([facility]) Unspecified essential hypertension Type 2 diabetes mellitus with complication, with long-term current use of insulin ([facility]) Class 3 severe obesity with serious comorbidity and body mass index (BMI) of 50.0 to 59.9 in adult, unspecified obesity type Tobacco user Tobacco use disorder Other headache syndrome Malignant neoplasm of cervix uteri, unspecified Other specified disorders of adrenal gland Major depressive disorder, single episode, mild (HCC) ([facility]) Major depressive disorder, single episode, mild 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 exposed Chronic respiratory failure, unspecified whether with hypoxia or hypercapnia Disorder of adrenal gland, unspecified Non-pressure chronic ulcer of other part of right lower leg limited to breakdown of skin ([facility]) Non-recurrent acute suppurative otitis media of left ear without spontaneous rupture of tympanic membrane Primary hypertension ([facility])- Primary Unspecified essential hypertension Insomnia Insomnia, unspecified Type 2 diabetes mellitus with complication, with long-term current use of insulin ([facility]) Non-seasonal allergic rhinitis, unspecified trigger Type 2 diabetes mellitus with unspecified complications Anxiety and depression ([facility]) Gastro-esophageal reflux disease without esophagitis Edema, unspecified Edema Diabetic polyneuropathy associated with type 2 diabetes mellitus ([facility]) Chronic obstructive pulmonary disease, unspecified Pulmonary emphysema, unspecified emphysema type ([facility]) Bilateral lower extremity edema Tobacco user Tobacco use disorder Hyperpigmentation of skin Other dyschromia Primary hypertension (CMS/HCC)- Primary Unspecified essential hypertension Diabetic polyneuropathy associated with type 2 diabetes mellitus (CMS/[facility]) Pulmonary emphysema, unspecified emphysema type (CMS/HCC) Critical limb ischemia of right lower extremity ([facility]) PAD (peripheral artery disease) ([facility]) Unspecified peripheral vascular disease Gastroesophageal reflux disease, unspecified whether esophagitis present Bilateral lower extremity edema Venous ulcer of right leg ([facility]) Type 2 diabetes mellitus with complication, with long-term current use of insulin ([facility]) Tobacco user Tobacco use disorder Encounter for smoking cessation counseling Kidney stone Calculus of kidney Adrenal mass 1 cm to 4 cm in diameter ([facility]) Radiculopathy, lumbar region Thoracic or lumbosacral neuritis or radiculitis, unspecified Non-seasonal allergic rhinitis, unspecified trigger Type 2 diabetes mellitus with unspecified complications Anxiety and depression ([facility])- Primary Morbid (severe) obesity due to excess calories ([facility]) Body mass index (BMI) 50.0-59.9, adult ([facility]) Malignant neoplasm of cervix uteri, unspecified Diabetic polyneuropathy associated with type 2 diabetes mellitus ([facility]) Chronic diastolic heart failure ([facility]) Chronic diastolic heart failure Primary hypertension ([facility]) Unspecified essential hypertension 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 Gastroesophageal reflux disease, unspecified whether esophagitis present Bilateral lower extremity edema Type 2 diabetes mellitus with complication, with long-term current use of insulin ([facility]) Tobacco user Tobacco use disorder Mixed hyperlipidemia ([facility]) Mixed hyperlipidemia Gout, unspecified cause, unspecified chronicity, unspecified site Vitamin deficiency Unspecified vitamin deficiency Gastro-esophageal reflux disease without esophagitis Edema, unspecified Edema Hyperlipidemia, unspecified ([facility]) Encounter for smoking cessation counseling Venous ulcer of right leg ([facility]) Antibiotic-induced yeast infection Primary hypertension [place] Primary Unspecified essential hypertension Diabetic polyneuropathy associated with type 2 diabetes mellitus ([facility]) Chronic diastolic heart failure ([facility]) Chronic diastolic heart failure Bilateral lower extremity edema Morbid (severe) obesity due to excess calories ([facility]) Type 2 diabetes mellitus with complication, with long-term current use of insulin ([facility]) Anxiety and depression ([facility]) Cigarette nicotine dependence without complication Encounter for screening mammogram for malignant neoplasm of breast Insomnia Insomnia, unspecified Non-seasonal allergic rhinitis, unspecified trigger Type 2 diabetes mellitus with unspecified complications Vitamin D deficiency, unspecified Gastro-esophageal reflux disease without esophagitis PAD (peripheral artery disease) ([facility]) Unspecified peripheral vascular disease Gastroesophageal reflux disease, unspecified whether esophagitis present Venous ulcer of right leg ([facility]) documented in this encounter [facility] HealthcareEvaluation note* Diagnosis Obstructive sleep apnea- Primary Obstructive sleep apnea (adult) (pediatric) Pulmonary emphysema, unspecified emphysema type ([facility]) Primary hypertension Unspecified essential hypertension Type 2 diabetes mellitus with complication, with long-term current use of insulin (HCC) Anxiety and depression Bilateral lower extremity edema Pulmonary emphysema, unspecified emphysema type (HCC)- Primary Primary hypertension Unspecified essential hypertension Class 3 severe obesity with serious comorbidity and body mass index (BMI) of 50.0 to 59.9 in adult, unspecified obesity type ([facility]) Obstructive sleep apnea Obstructive sleep apnea [...] to 59.9 in adult, unspecified [place] type [place] [place] Encounter for [...] 59.9 in adult, unspecified obesity type ([facility]) Tobacco user Tobacco use disorder Other [...] lower leg limited to breakdown of skin ([facility]) Non-recurrent acute suppurative otitis media of left ear without spontaneous rupture of tympanic membrane Primary hypertension- Primary Unspecified essential hypertension Insomnia Insomnia, unspecified Type 2 diabetes mellitus with complication, with long-term current use of insulin ([facility]) Non-seasonal allergic rhinitis, unspecified trigger Type 2 diabetes mellitus with unspecified complications ([facility]) Anxiety and depression Gastro-esophageal reflux disease without esophagitis Edema, unspecified Edema Diabetic polyneuropathy associated with type 2 diabetes mellitus ([facility]) Chronic obstructive pulmonary disease, unspecified ([facility]) Pulmonary emphysema, unspecified emphysema type ([facility]) Bilateral lower extremity edema Tobacco user Tobacco use disorder Hyperpigmentation of skin Other dyschromia Primary hypertension- Primary Unspecified essential hypertension Diabetic polyneuropathy associated with type 2 diabetes mellitus ([facility]) Pulmonary emphysema, unspecified emphysema type ([facility]) Critical limb ischemia of right lower extremity ([facility]) PAD (peripheral artery disease) Unspecified peripheral vascular disease Gastroesophageal reflux disease, unspecified whether esophagitis present Bilateral lower extremity edema Venous ulcer of right leg ([facility]) Type 2 diabetes mellitus with complication, with long-term current use of insulin ([facility]) Tobacco user Tobacco use disorder Encounter for smoking cessation counseling Kidney stone Calculus of kidney Adrenal mass 1 cm to 4 cm in diameter ([facility]) Radiculopathy, lumbar region Thoracic or lumbosacral neuritis or radiculitis, unspecified Non-seasonal allergic rhinitis, unspecified trigger Type 2 diabetes mellitus with unspecified complications ([facility]) Anxiety and depression- Primary Morbid (severe) obesity due to excess calories [place] [place] Body mass index (BMI) 50.0-59.9, adult [place] [place] Malignant neoplasm of cervix uteri, unspecified ([facility]) Diabetic polyneuropathy associated with type 2 diabetes mellitus ([facility]) Chronic diastolic heart failure (HCC) Chronic diastolic heart failure Primary hypertension Unspecified essential hypertension 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 ([facility]) Gastroesophageal reflux disease, unspecified whether esophagitis present Bilateral lower extremity edema Type 2 diabetes mellitus with complication, with long-term current use of insulin ([facility]) Tobacco user Tobacco use disorder Mixed [...] (severe) obesity due to excess calories ([facility]) Type 2 diabetes mellitus with complication, [...] of left lower extremity- Primary COPD exacerbation ([facility]) Obstructive chronic bronchitis with exacerbation Primary hypertension Unspecified essential hypertension Pulmonary hypertension (HCC) Other chronic pulmonary heart diseases Morbid (severe) obesity due to excess calories ([facility]) Type 2 diabetes mellitus with complication, with long-term current use of insulin ([facility]) Anxiety and depression Fever, unspecified fever cause Hyperlipidemia, unspecified Tobacco user Tobacco use disorder Encounter for smoking cessation counseling documented in this encounter [facility] HealthcareEvaluation note* Diagnosis Obstructive sleep apnea- Primary Obstructive sleep apnea (adult) (pediatric) Pulmonary emphysema, unspecified emphysema type ([facility]) Primary hypertension ([facility]) Unspecified essential hypertension Type 2 diabetes mellitus with complication, with long-term current use of insulin ([facility]) Anxiety and depression ([facility]) Bilateral lower extremity edema Pulmonary emphysema, unspecified emphysema type ([facility])- Primary Primary hypertension ([facility]) Unspecified essential hypertension Class 3 severe obesity with serious comorbidity and body mass index (BMI) of 50.0 to 59.9 in adult, unspecified obesity type Obstructive sleep apnea Obstructive sleep apnea (adult) (pediatric) Pulmonary hypertension ([facility]) Other chronic pulmonary heart diseases Tobacco user Tobacco use disorder Cardiomegaly Primary hypertension ([facility])- Primary Unspecified essential hypertension Gastroesophageal reflux disease, unspecified whether esophagitis present Type 2 diabetes mellitus with complication, with long-term current use of insulin ([facility]) Mixed hyperlipidemia ([facility]) Mixed hyperlipidemia Tobacco user Tobacco use disorder Encounter for screening mammogram for malignant neoplasm of breast Chronic obstructive pulmonary disease, unspecified Other specified chronic obstructive pulmonary disease Anxiety and depression ([facility]) Edema, unspecified Edema Hyperlipidemia, unspecified (CMS/[facility]) Diabetic polyneuropathy associated with type 2 diabetes mellitus (CMS/[facility]) Gout, unspecified cause, unspecified chronicity, unspecified site Non-seasonal allergic rhinitis, unspecified trigger Bilateral lower extremity edema COPD exacerbation (CMS/[facility]) Obstructive chronic bronchitis with exacerbation Pulmonary emphysema, unspecified emphysema type (CMS/HCC) Venous insufficiency Unspecified venous (peripheral) insufficiency Candidiasis of breast COPD exacerbation (CMS/HCC)- Primary Obstructive chronic bronchitis with exacerbation Pulmonary hypertension (CMS/[facility]) Other chronic pulmonary heart diseases Class 3 severe obesity with serious comorbidity and body mass index (BMI) of 50.0 to 59.9 in adult, unspecified obesity type Encounter for subsequent annual wellness visit (AWV) in Medicare patient- Primary Type 2 diabetes mellitus with unspecified complications Pulmonary emphysema, unspecified emphysema type ([facility]) Moderate persistent asthma without complication (CMS/[facility]) Primary hypertension ([facility]) Unspecified essential hypertension Type 2 diabetes mellitus with complication, with long-term current use of insulin ([facility]) Class 3 severe obesity with serious comorbidity and body mass index (BMI) of 50.0 to 59.9 in adult, unspecified obesity type Tobacco user Tobacco use disorder Other headache syndrome Malignant neoplasm of cervix uteri, unspecified Other specified disorders of adrenal gland Major depressive disorder, single episode, mild (HCC) ([facility]) Major depressive disorder, single episode, mild 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 exposed Chronic respiratory failure, unspecified whether with hypoxia or hypercapnia Disorder of adrenal gland, unspecified Non-pressure chronic ulcer of other part of right lower leg limited to breakdown of skin ([facility]) Non-recurrent acute suppurative otitis media of left ear without spontaneous rupture of tympanic membrane Primary hypertension ([facility])- Primary Unspecified essential hypertension Insomnia Insomnia, unspecified Type 2 diabetes mellitus with complication, with long-term current use of insulin ([facility]) Non-seasonal allergic rhinitis, unspecified trigger Type 2 diabetes mellitus with unspecified complications Anxiety and depression ([facility]) Gastro-esophageal reflux disease without esophagitis Edema, unspecified Edema Diabetic polyneuropathy associated with type 2 diabetes mellitus ([facility]) Chronic obstructive pulmonary disease, unspecified Pulmonary emphysema, unspecified emphysema type (CMS/HCC) Bilateral lower extremity edema Tobacco user Tobacco use disorder Hyperpigmentation of skin Other dyschromia Primary hypertension ([facility])- Primary Unspecified essential hypertension Diabetic polyneuropathy associated with type 2 diabetes mellitus ([facility]) Pulmonary emphysema, unspecified emphysema type ([facility]) Critical limb ischemia of right lower extremity ([facility]) PAD (peripheral artery disease) ([facility]) Unspecified peripheral vascular disease Gastroesophageal reflux disease, unspecified whether esophagitis present Bilateral lower extremity edema Venous ulcer of right leg ([facility]) Type 2 diabetes mellitus with complication, with long-term current use of insulin ([facility]) Tobacco user Tobacco use disorder Encounter for smoking cessation counseling Kidney stone Calculus of kidney Adrenal mass 1 cm to 4 cm in diameter ([facility]) Radiculopathy, lumbar region Thoracic or lumbosacral neuritis or radiculitis, unspecified Non-seasonal allergic rhinitis, unspecified trigger Type 2 diabetes mellitus with unspecified complications Anxiety and depression ([facility])- Primary Morbid (severe) obesity due to excess calories ([facility]) Body mass index (BMI) 50.0-59.9, adult ([facility]) Malignant neoplasm of cervix uteri, unspecified Diabetic polyneuropathy associated with type 2 diabetes mellitus ([facility]) Chronic diastolic heart failure ([facility]) Chronic diastolic heart failure Primary hypertension [place] Unspecified essential hypertension 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 Gastroesophageal reflux disease, unspecified whether esophagitis present Bilateral lower extremity edema Type 2 diabetes mellitus with complication, with long-term current use of insulin ([facility]) Tobacco user Tobacco use disorder Mixed hyperlipidemia ([facility]) Mixed hyperlipidemia Gout, unspecified cause, unspecified chronicity, unspecified site Vitamin deficiency Unspecified vitamin deficiency Gastro-esophageal reflux disease without esophagitis Edema, unspecified Edema Hyperlipidemia, unspecified ([facility]) Encounter for smoking cessation counseling Venous ulcer of right leg ([facility]) Antibiotic-induced yeast infection Primary hypertension ([facility])- Primary Unspecified essential hypertension Diabetic polyneuropathy associated with type 2 diabetes mellitus ([facility]) Chronic diastolic heart failure ([facility]) Chronic diastolic heart failure Bilateral lower extremity edema Morbid (severe) obesity due to excess calories ([facility]) Type 2 diabetes mellitus with complication, with long-term current use of insulin ([facility]) Anxiety and depression [place] Cigarette nicotine dependence without complication Encounter for screening mammogram for malignant neoplasm of breast Insomnia Insomnia, unspecified Non-seasonal allergic rhinitis, unspecified trigger Type 2 diabetes mellitus with unspecified complications Vitamin D deficiency, unspecified Gastro-esophageal reflux disease without esophagitis PAD (peripheral artery disease) ([facility]) Unspecified peripheral vascular disease Gastroesophageal reflux disease, unspecified whether esophagitis present Venous ulcer of right leg ([facility]) Cellulitis of left lower extremity- Primary COPD exacerbation ([facility]) Obstructive chronic bronchitis with exacerbation Primary hypertension ([facility]) Unspecified essential hypertension Pulmonary hypertension ([facility]) Other chronic pulmonary heart diseases Morbid (severe) obesity due to excess calories ([facility]) Type 2 diabetes mellitus with complication, with long-term current use of insulin ([facility]) Anxiety and depression ([facility]) Fever, unspecified fever cause documented in this encounter [facility] HealthcareEvaluation note* Diagnosis Obstructive sleep apnea- Primary Obstructive sleep apnea (adult) (pediatric) Pulmonary emphysema, unspecified emphysema type (HCC) Primary hypertension Unspecified essential hypertension Type 2 diabetes mellitus with complication, with long-term current use of insulin ([facility]) Anxiety and depression Bilateral lower extremity edema Pulmonary emphysema, unspecified emphysema type (HCC)- Primary Primary hypertension Unspecified essential hypertension Class 3 severe obesity with serious comorbidity and body mass index (BMI) of 50.0 to 59.9 in adult, unspecified obesity type ([facility]) Obstructive sleep apnea Obstructive sleep apnea [...] to 59.9 in adult, unspecified obesity type [place] [place] Encounter for subsequent annual wellness visit (AWV) in Medicare patient- Primary Type 2 diabetes mellitus with unspecified complications (HCC) Pulmonary emphysema, unspecified emphysema type ([facility]) Moderate persistent asthma without complication (HCC) Primary hypertension Unspecified essential hypertension Type 2 diabetes mellitus with complication, with long-term current use of insulin ([facility]) Class 3 severe obesity with serious comorbidity and body mass index (BMI) of 50.0 to 59.9 in adult, unspecified obesity type [place] [place] Tobacco user Tobacco use disorder Other headache syndrome Malignant neoplasm of cervix uteri, unspecified ([facility]) Other specified disorders of adrenal gland ([facility]) Major depressive disorder, single episode, mild Major depressive disorder, single episode, mild 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 exposed ([facility]) Chronic respiratory failure, unspecified whether with hypoxia or hypercapnia ([facility]) Disorder of adrenal gland, unspecified ([facility]) Non-pressure chronic ulcer of other part of right lower leg limited to breakdown of skin ([facility]) Non-recurrent acute suppurative otitis media of left ear without spontaneous rupture of tympanic membrane Primary hypertension- Primary Unspecified essential hypertension Insomnia Insomnia, unspecified Type 2 diabetes mellitus with complication, with long-term current use of insulin ([facility]) Non-seasonal allergic rhinitis, unspecified trigger Type 2 diabetes mellitus with unspecified complications ([facility]) Anxiety and depression Gastro-esophageal reflux disease without esophagitis Edema, unspecified Edema Diabetic polyneuropathy associated with type 2 diabetes mellitus ([facility]) Chronic obstructive pulmonary disease, unspecified (HCC) Pulmonary emphysema, unspecified emphysema type ([facility]) Bilateral lower extremity edema Tobacco user Tobacco use disorder Hyperpigmentation of skin Other dyschromia Primary hypertension- Primary Unspecified essential hypertension Diabetic polyneuropathy associated with type 2 diabetes mellitus ([facility]) Pulmonary emphysema, unspecified emphysema type ([facility]) Critical limb ischemia of right lower extremity ([facility]) PAD (peripheral artery disease) Unspecified peripheral vascular disease Gastroesophageal reflux disease, unspecified whether esophagitis present Bilateral lower extremity edema Venous ulcer of right leg ([facility]) Type 2 diabetes mellitus with complication, with long-term current use of insulin ([facility]) Tobacco user Tobacco use disorder Encounter for smoking cessation counseling Kidney stone Calculus of kidney Adrenal mass 1 cm to 4 cm in diameter ([facility]) Radiculopathy, lumbar region Thoracic or lumbosacral neuritis or radiculitis, unspecified Non-seasonal allergic rhinitis, unspecified trigger Type 2 diabetes mellitus with unspecified complications ([facility]) Anxiety and depression- Primary Morbid (severe) obesity due to excess calories ([facility]) Body mass index (BMI) 50.0-59.9, adult ([facility]) Malignant neoplasm of cervix uteri, unspecified (HCC) Diabetic polyneuropathy associated with type 2 diabetes mellitus (HCC) Chronic diastolic heart failure (HCC) Chronic diastolic heart failure Primary hypertension Unspecified essential hypertension 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 ([facility]) Gastroesophageal reflux disease, unspecified whether esophagitis present Bilateral lower extremity edema Type 2 diabetes mellitus with complication, with long-term current use of insulin ([facility]) Tobacco user Tobacco use disorder Mixed [...] (severe) obesity due to excess calories ([facility]) Type 2 diabetes mellitus with complication, with long-term current use of insulin (HCC) Anxiety and depression Cigarette nicotine dependence without complication Encounter for screening mammogram for malignant neoplasm of breast Insomnia Insomnia, unspecified Non-seasonal allergic rhinitis, unspecified trigger Type 2 diabetes mellitus with unspecified complications ([facility]) Vitamin D deficiency, unspecified Gastro-esophageal reflux [...] (severe) obesity due to excess calories ([facility]) Type 2 diabetes mellitus with complication, with long-term current use of insulin ([facility]) Anxiety and depression Fever, unspecified fever [...] (severe) obesity due to excess calories ([facility]) Type 2 diabetes mellitus with hyperglycemia, with long-term current use of insulin ([facility]) documented in this encounter [facility] [...] 59.9 in adult, unspecified obesity type ([facility]) Obstructive sleep apnea Obstructive sleep apnea [...] polyneuropathy associated with type 2 diabetes mellitus ([facility]) Gout, unspecified cause, unspecified chronicity, unspecified [...] to 59.9 in adult, unspecified obesity type [place] Encounter for subsequent annual wellness visit (AWV) in Medicare patient- Primary Type 2 diabetes mellitus with unspecified complications ([facility]) Pulmonary emphysema, unspecified emphysema type ([facility]) Moderate persistent asthma without complication (HCC) Primary hypertension Unspecified essential hypertension Type 2 diabetes mellitus with complication, with long-term current use of insulin ([facility]) Class 3 severe obesity with serious comorbidity and body mass index (BMI) of 50.0 to 59.9 in adult, unspecified obesity type ([facility] Tobacco user Tobacco use disorder Other headache syndrome Malignant neoplasm of cervix uteri, unspecified ([facility]) Other specified disorders of adrenal gland ([facility]) Major depressive disorder, single episode, mild Major depressive disorder, single episode, mild 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 exposed ([facility]) Chronic respiratory failure, unspecified whether with hypoxia or hypercapnia ([facility]) Disorder of adrenal gland, unspecified ([facility]) Non-pressure chronic ulcer of other part of right lower leg limited to breakdown of skin ([facility]) Non-recurrent acute suppurative otitis media of left ear without spontaneous rupture of tympanic membrane Primary hypertension- Primary Unspecified essential hypertension Insomnia Insomnia, unspecified Type 2 diabetes mellitus with complication, with long-term current use of insulin ([facility]) Non-seasonal allergic rhinitis, unspecified trigger Type 2 diabetes mellitus with unspecified complications ([facility]) Anxiety and depression Gastro-esophageal reflux disease without esophagitis Edema, unspecified Edema Diabetic polyneuropathy associated with type 2 diabetes mellitus ([facility]) Chronic obstructive pulmonary disease, unspecified ([facility]) Pulmonary emphysema, unspecified emphysema type ([facility]) Bilateral lower extremity edema Tobacco user Tobacco use disorder Hyperpigmentation of skin Other dyschromia Primary hypertension- Primary Unspecified essential hypertension Diabetic polyneuropathy associated with type 2 diabetes mellitus ([facility]) Pulmonary emphysema, unspecified emphysema type ([facility]) Critical limb ischemia of right lower extremity ([facility]) PAD (peripheral artery disease) Unspecified peripheral vascular disease Gastroesophageal reflux disease, unspecified whether esophagitis present Bilateral lower extremity edema Venous ulcer of right leg ([facility]) Type 2 diabetes mellitus with complication, with long-term current use of insulin ([facility]) Tobacco user Tobacco use disorder Encounter for smoking cessation counseling Kidney stone Calculus of kidney Adrenal mass 1 cm to 4 cm in diameter ([facility]) Radiculopathy, lumbar region Thoracic or lumbosacral neuritis or radiculitis, unspecified Non-seasonal allergic rhinitis, unspecified trigger Type 2 diabetes mellitus with unspecified complications ([facility]) Anxiety and depression- Primary Morbid (severe) obesity due to excess calories ([facility]) Body mass index (BMI) 50.0-59.9, adult ([facility]) Malignant neoplasm of cervix uteri, unspecified (HCC) Diabetic polyneuropathy associated with type 2 diabetes mellitus ([facility]) Chronic diastolic heart failure (HCC) Chronic diastolic heart failure Primary hypertension Unspecified essential hypertension 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 ([facility]) Gastroesophageal reflux disease, unspecified whether esophagitis present Bilateral lower extremity edema Type 2 diabetes mellitus with complication, with long-term current use of insulin ([facility]) Tobacco user Tobacco use disorder Mixed hyperlipidemia Mixed hyperlipidemia Gout, unspecified cause, unspecified chronicity, unspecified site Vitamin deficiency Unspecified vitamin deficiency Gastro-esophageal reflux disease without esophagitis Edema, unspecified Edema Hyperlipidemia, unspecified Encounter for smoking cessation counseling Venous ulcer of right leg ([facility]) Antibiotic-induced yeast infection Primary hypertension- Primary Unspecified essential hypertension Diabetic polyneuropathy associated with type 2 diabetes mellitus (HCC) Chronic diastolic heart failure (HCC) Chronic diastolic heart failure Bilateral lower extremity edema Morbid (severe) obesity due to excess calories ([facility]) Type 2 diabetes mellitus with complication, with long-term current use of insulin ([facility]) Anxiety and depression Cigarette nicotine dependence without complication Encounter for screening mammogram for malignant neoplasm of breast Insomnia Insomnia, unspecified Non-seasonal allergic rhinitis, unspecified trigger Type 2 diabetes mellitus with unspecified complications ([facility]) Vitamin D deficiency, unspecified Gastro-esophageal reflux disease without esophagitis PAD (peripheral artery disease) Unspecified peripheral vascular disease Gastroesophageal reflux disease, unspecified whether esophagitis present Venous ulcer of right leg (HCC) Cellulitis of left lower extremity- Primary COPD exacerbation ([facility]) Obstructive chronic bronchitis with exacerbation Primary hypertension Unspecified essential hypertension Pulmonary hypertension (HCC) Other chronic pulmonary heart diseases Morbid (severe) obesity due to excess calories ([facility]) Type 2 diabetes mellitus with complication, with long-term current use of insulin ([facility]) Anxiety and depression Fever, unspecified fever [...] Morbid (severe) obesity due to excess calories [place] Encounter for dietary consultation- Primary Type 2 diabetes mellitus with hyperglycemia, with long-term current use of insulin ([facility]) Vitamin D deficiency Primary hypertension Unspecified essential hypertension Insulin long-term use ([facility]) Encounter for long-term (current) use of insulin Hyperlipemia, mixed Mixed hyperlipidemia Microalbuminuria Proteinuria Class 3 severe obesity due to excess calories with serious comorbidity and body mass index (BMI) of 50.0 to 59.9 in adult ([facility] [place] [place] documented in this encounter [facility] HealthcareEvaluation note* Diagnosis Obstructive sleep apnea- Primary Obstructive sleep apnea (adult) (pediatric) Pulmonary emphysema, unspecified emphysema type (HCC) Primary hypertension Unspecified essential hypertension Type 2 diabetes mellitus with complication, with long-term current use of insulin ([facility]) Anxiety and depression Bilateral lower extremity edema Pulmonary emphysema, unspecified emphysema type (HCC)- Primary Primary hypertension Unspecified essential hypertension Class 3 severe obesity with serious comorbidity and body mass index (BMI) of 50.0 to 59.9 in adult, unspecified obesity type ([facility] [place] Obstructive sleep apnea Obstructive sleep apnea (adult) (pediatric) Pulmonary hypertension (HCC) Other chronic pulmonary heart diseases Tobacco user Tobacco use disorder Cardiomegaly Primary hypertension- Primary Unspecified essential hypertension Gastroesophageal reflux disease, unspecified whether esophagitis present Type 2 diabetes mellitus with complication, with long-term current use of insulin ([facility]) Mixed hyperlipidemia Mixed hyperlipidemia Tobacco user Tobacco use disorder Encounter for screening mammogram for malignant neoplasm of breast Chronic obstructive pulmonary disease, unspecified (HCC) Other specified chronic obstructive pulmonary disease (HCC) Anxiety and depression Edema, unspecified Edema Hyperlipidemia, unspecified Diabetic polyneuropathy associated with type 2 diabetes mellitus ([facility]) Gout, unspecified cause, unspecified chronicity, unspecified [...] to 59.9 in adult, unspecified obesity type ([facility] [place] Encounter for subsequent annual wellness visit (AWV) in Medicare patient- Primary Type 2 diabetes mellitus with unspecified complications (HCC) Pulmonary emphysema, unspecified emphysema type ([facility]) Moderate persistent asthma without complication (HCC) Primary hypertension Unspecified essential hypertension Type 2 diabetes mellitus with complication, with long-term current use of insulin ([facility]) Class 3 severe obesity with serious comorbidity and body mass index (BMI) of 50.0 to 59.9 in adult, unspecified obesity type ([facility] [place] Tobacco user Tobacco use disorder Other headache syndrome Malignant neoplasm of cervix uteri, unspecified (HCC) Other specified disorders of adrenal gland (HCC) Major depressive disorder, single episode, mild Major depressive disorder, single episode, mild 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 exposed ([facility]) Chronic respiratory failure, unspecified whether with [...] polyneuropathy associated with type 2 diabetes mellitus ([facility]) Pulmonary emphysema, unspecified emphysema type (HCC) Critical limb ischemia of right lower extremity ([facility] PAD (peripheral artery disease) Unspecified peripheral vascular disease Gastroesophageal reflux disease, unspecified whether esophagitis present Bilateral lower extremity edema Venous ulcer of right leg ([facility]) Type 2 diabetes mellitus with complication, with long-term current use of insulin ([facility]) Tobacco user Tobacco use disorder Encounter for smoking cessation counseling Kidney stone Calculus of kidney Adrenal mass 1 cm to 4 cm in diameter ([facility]) Radiculopathy, lumbar region Thoracic or lumbosacral neuritis or radiculitis, unspecified Non-seasonal allergic rhinitis, unspecified trigger Type 2 diabetes mellitus with unspecified complications ([facility]) Anxiety and depression- Primary Morbid (severe) obesity due to excess calories ([facility] Body mass index (BMI) 50.0-59.9, adult ([facility] Malignant neoplasm of cervix uteri, unspecified ([facility]) Diabetic polyneuropathy associated with type 2 diabetes mellitus ([facility]) Chronic diastolic heart failure ([facility]) Chronic diastolic heart failure Primary hypertension Unspecified essential hypertension 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 ([facility]) Gastroesophageal reflux disease, unspecified whether esophagitis present Bilateral lower extremity edema Type 2 diabetes mellitus with complication, with long-term current use of insulin ([facility]) Tobacco user Tobacco use disorder Mixed hyperlipidemia Mixed hyperlipidemia Gout, unspecified cause, unspecified chronicity, unspecified site Vitamin deficiency Unspecified vitamin deficiency Gastro-esophageal reflux disease without esophagitis Edema, unspecified Edema Hyperlipidemia, unspecified Encounter for smoking cessation counseling Venous ulcer of right leg ([facility]) Antibiotic-induced yeast infection Primary hypertension- Primary Unspecified essential hypertension Diabetic polyneuropathy associated with type 2 diabetes mellitus ([facility]) Chronic diastolic heart failure (HCC) Chronic diastolic heart failure Bilateral lower extremity edema Morbid (severe) obesity due to excess calories ([facility] Type 2 diabetes mellitus with complication, with long-term current use of insulin ([facility]) Anxiety and depression Cigarette nicotine dependence without complication Encounter for screening mammogram for malignant neoplasm of breast Insomnia Insomnia, unspecified Non-seasonal allergic rhinitis, unspecified trigger Type 2 diabetes mellitus with unspecified complications ([facility]) Vitamin D deficiency, unspecified Gastro-esophageal reflux disease without esophagitis PAD (peripheral artery disease) Unspecified peripheral vascular disease Gastroesophageal reflux disease, unspecified whether esophagitis present Venous ulcer of right leg ([facility]) Cellulitis of left lower extremity- Primary COPD exacerbation ([facility]) Obstructive chronic bronchitis with exacerbation Primary hypertension Unspecified essential hypertension Pulmonary hypertension (HCC) Other chronic pulmonary heart diseases Morbid (severe) obesity due to excess calories ([facility]) Type 2 diabetes mellitus with complication, with [...] (severe) obesity due to excess calories ([facility]) Tobacco user Tobacco use disorder Encounter [...] History sepsis 2010 Hospitalization History SEE ABOVE [employer] Other Hospital course Narrative No data available for this section [facility] Wilfredo progress note No data available for this section [facility] [employer] reason for referral (narrative) , Referral to Dr. 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 DATE CREATED AUTHOR AUTHOR'S ORGANIZ ATION [facility]20[facility] DATE CREATED AUTHOR AUTHOR'S ORGANIZ ATION 01/30/2025 [facility] DATE CREATED AUTHOR AUTHOR'S ORGANIZ ATION 02/06/2025 [facility] DATE CREATED AUTHOR AUTHOR'S ORGANIZ ATION 03/25/2025 [facility] Care Team (unrecognized sect ion and content) Toll Line Inspector Relationship Specialty Start Date End Date Ty Amin MD PCP - General Family Medicine 01/05/23 Toll Line Inspector Relationship Specialty Start Date End Date Ty Amin MD PCP - General Family Medicine 01/05/23 Toll Line Inspector Relationship Specialty Start Date End Date Ty Amin MD [address] [place] [address] PCP - General Family Medicine 09/20/23 Mckayla Blas NP [address] [place] [address] PCP - [facility] 09/07/23 09/05/90 Mckayla Blas NP [address] [place] [address] Nurse Practitioner Family Medicine 09/20/23 Toll Line Inspector Relationship Specialty Start Date End Date Ty Amin MD [address] [place] [phone] PCP - General Family Medicine 09/20/23 Mckayla Blas NP [address] [place] [phone] PCP - [facility] 09/07/23 09/05/90 Mckayla Blas NP [address] [place] [phone] Nurse Practitioner Family Medicine 09/20/23 Toll Line Inspector Relationship Specialty Start Date End Date Ty Amin MD [address] [place] [phone] PCP - General Family Medicine 09/20/23 Mckayla Blas NP [address] [place] [address] PCP [facility] 09/07/23 09/05/90 Mckayla Blas NP [address] [place] [phone] Nurse Practitioner Family Medicine 09/20/23 Toll Line Inspector Relationship Specialty Start Date End Date Ty Amin MD [address] [place] [phone] PCP - General Family Medicine 09/20/23 Mckayla Blas NP [address] [place] [phone] PCP - [facility] 09/07/23 09/05/90 Mckayla Blas NP [address] [place] [phone] Nurse Practitioner Family Medicine 09/20/23 Toll Line Inspector Relationship Specialty Start Date End Date Ty Amin MD [address] [place] [phone] PCP - General Family Medicine 09/20/23 Mckayla Blas NP [address] [place] [address] PCP - [facility] 09/07/23 09/05/90 Mckayla Blas NP [address] [place] [address] Nurse Practitioner Family Medicine 09/20/23 Toll Line Inspector Relationship Specialty Start Date End Date Ty Amin MD [address] [place] [address] PCP - General Family Medicine 09/20/23 Mckayla Blas NP [address] [place] [phone] PCP [facility] 09/07/23 09/05/90 Mckayla Blas NP [address] [place] [phone] Nurse Practitioner Family Medicine 09/20/23 Toll Line Inspector Relationship Specialty Start Date End Date Ty Amin MD [address] [place] [phone] PCP - General Family Medicine 09/20/23 Mckayla Blas NP [address] [place] [phone] PCP - [facility] 09/07/23 09/05/90 Mckayla Blas NP [address] [place] [address] Nurse Practitioner Family Medicine 09/20/23 Toll Line Inspector Relationship Specialty Start Date End Date Ty Amin MD [address] [place] [phone] PCP - General Family Medicine 09/20/23 Mckayla Blas NP [address] [place] [phone] PCP [facility] 09/07/23 09/05/90 Mckayla Blas NP [address] [place] [phone] Nurse Practitioner Family Medicine 09/20/23 Toll Line Inspector Relationship Specialty Start Date End Date Ty Amin MD [address] [place] [phone] PCP - General Family Medicine 09/20/23 Mckayla Blas NP [address] [place] [phone] PCP - [facility] 09/07/23 09/05/90 Mckayla Blas NP [address] [place] [phone] Nurse Practitioner Family Medicine 09/20/23 Toll Line Inspector Relationship Specialty Start Date End Date Ty Amin MD [address] [place] [phone] PCP - General Family Medicine 09/20/23 Mckayla Blas NP [address] [place] [phone] PCP - [facility] 09/07/23 09/05/90 Mckayla Blas NP [address] [place] [phone] Nurse Practitioner Family Medicine 09/20/23 Toll Line Inspector Relationship Specialty Start Date End Date Ty Amin MD [address] [place] [phone] PCP - General Family Medicine 09/20/23 Mckayla Blas NP [address] [place] [phone] PCP [facility] 09/07/23 09/05/90 Mckayla Blas NP [address] [place] [phone] Nurse Practitioner Family Medicine 09/20/23 Toll Line Inspector Relationship Specialty Start Date End Date Ty Amin MD [address] [place] [phone] PCP - General Family Medicine 09/20/23 Mckayla Blas NP [address] [place] [phone] PCP - [facility] 09/07/23 09/05/90 Mckayla Blas NP [address] [place] [address] Nurse Practitioner Family Medicine 09/20/23 Toll Line Inspector Relationship Specialty Start Date End Date Ty Amin MD [address] [place] [phone] PCP - General Family Medicine 09/20/23 Mckayla Blas NP [address] [place] [address] PCP [facility] 09/07/23 09/05/90 Mckayla Blas NP [address] [place] [phone] Nurse Practitioner Family Medicine 09/20/23 Toll Line Inspector Relationship Specialty Start Date End Date Ty Amin MD [address] [place] [phone] PCP - General Family Medicine 09/20/23 Mckayla Blas NP [address] [place] [phone] PCP - [facility] 09/07/23 09/05/90 Mckayla Blas NP [address] [place] [phone] Nurse Practitioner Family Medicine 09/20/23 Toll Line Inspector Relationship Specialty Start Date End Date Ty Amin MD [address] [place] [address] PCP - General Family Medicine 09/20/23 Mckayla Blas NP [address] [place] [address] PCP - [facility] 09/07/23 09/05/90 Mckayla Blas NP [address] [place] [address] Nurse Practitioner Family Medicine 09/20/23 Toll Line Inspector Relationship Specialty Start Date End Date Ty Amin MD [address] [place] [address] PCP - General Family Medicine 09/20/23 Mckayla Blas NP [address] [place] [address] PCP [facility] 09/07/23 09/05/90 Mckayla Blas NP [address] [place] [address] Nurse Practitioner Family Medicine 09/20/23 Toll Line Inspector Relationship Specialty Start Date End Date Ty Amin MD [address] [place] [address] PCP - General Family Medicine 09/20/23 Mckayla Blas NP [address] [place] [address] PCP - [facility] 09/07/23 09/05/90 Mckayla Blas NP [address] [place] [address] Nurse Practitioner Family Medicine 09/20/23 Toll Line Inspector Relationship Specialty Start Date End Date Ty Amin MD [address] [place] [address] PCP - General Family Medicine 09/20/23 Mckayla Blas NP [address] [place] [address] PCP [facility] 09/07/23 09/05/90 Mckayla Blas NP [address] [place] [address] Nurse Practitioner Family Medicine 09/20/23 Toll Line Inspector Relationship Specialty Start Date End Date Ty Amin MD [address] [place] [address] PCP - General Family Medicine 09/20/23 Mckayla Blas NP [address] [place] [address] PCP - [facility] 09/07/23 09/05/90 Mckayla Blas NP [address] [place] [address] Nurse Practitioner Family Medicine 09/20/23 Toll Line Inspector Relationship Specialty Start Date End Date Ty Amin MD [address] [place] [address] PCP - General Family Medicine 09/20/23 Mckayla Blas NP [address] [place] [address] [facility] - [facility] 09/07/23 09/05/90 Mckayla Blas NP [address] [place] [address] Nurse Practitioner Family Medicine 09/20/23 Toll Line Inspector Relationship Specialty Start Date End Date Ty Amin MD [address] [place] [address] PCP - General Family Medicine 09/20/23 Mckayla Blas NP [address] [place] [address] Nurse Practitioner Family Medicine 09/20/23 Toll Line Inspector Relationship Specialty Start Date End Date Ty Amin MD [address] [place] [address] PCP - General Family Medicine 09/20/23 Mckayla Blas NP [address] [place] [address] Nurse Practitioner Family Medicine 09/20/23 Toll Line Inspector Relationship Specialty Start Date End Date Ty Amin MD [address] [place] [address] PCP - General Family Medicine 09/20/23 Mckayla Blas NP [address] [place] [address] Nurse Practitioner Family Medicine 09/20/23 Toll Line Inspector Relationship Specialty Start Date End Date Ty Amin MD [address] [place] [address] PCP - General Family Medicine 09/20/23 Mckayla Blas NP [address] [place] [address] Nurse Practitioner Family Medicine 09/20/23 Toll Line Inspector Relationship Specialty Start Date End Date Ty Amin MD [address] [place] [address] PCP - General Family Medicine 09/20/23 Mckayla Blas NP [address] [place] [address] Nurse Practitioner Family Medicine 09/20/23 REASON FOR [...] ON THE PRIMARY CLINICAL RECORDS. [facility]. provides no warranty or guarantee of the accuracy or completeness of information in this document.
== END 2025-04-02 10:19 | disposition home or self-care (01) ==
LOC: WC 10:18
PROVIDERS: PCP Nurse Practitioner; Visit Provider Physician Assistant
DX: I87.311 Chronic venous hypertension (idiopathic) with ulcer of right lower extremity (principal); L97.812 Non-pressure chronic ulcer of other part of right lower leg with fat layer exposed
CPT/HCPCS: 29581; A6021

== ENCOUNTER 2025-04-06 10:42 | Outpatient (OUT) | payer MEDICARE, SELFPAY ==
--- OUTSIDE RECORDS SUMMARY | 2025-03-24 12:33 | XMS_ITS ---
Author Name Auto Generated Organization OHIP Care Team Providers Care Atmospheric Chemist Name Role Phone MALIK CHANDA Attending Unavailable LILY DEL RIO Attending Unavailable MALIK CHANDA Attending Unavailable MANNIE LUIS M Attending Unavailable MANNIE LUIS M Attending Unavailable LILY DEL RIO Attending Unavailable LILY DEL RIO Referring Unavailable MANNIE LUIS M Attending Unavailable MANNIE LUIS M Attending Unavailable LLIY DEL RIO Attending Unavailable Elbert VARGAS Attending Unavailable DANTE VEGA Attending Unavailab le Bob RIFFLER TENDER-AGRICULTURAL RESEARCH TECHNICIAN, Omero Lovell Attending Pj Kellogg MD, Corinne Ghosh Attending Unavail able Adonay CHAU, Flynn Arzate Attending Unavailab lolita Urias DPM, Flynn Arzate Attending Unavailab le Bob RIFFLER TENDER-AGRICULTURAL RESEARCH TECHNICIAN, Omero Lovell Attending Pj Urias DPM, Flynn Arzate Referring Unavailab le DAKOTAH ANGUIANO Attending Unavailable AMI CHATTERJEE Attending Unavailable PROBLEMS DATE TYPE CONDITION / CODE ATTENDING STATUS [facility] 01/06/2025 Admitting Diagnosis Cardiomegaly / I51.7(ICD-10) AMI CHATTERJEE [facility] 08/08/2024 Admitting Diagnosis Chronic diastolic (congestive) heart failure / [facility]50.32(ICD-10) [facility] Admitting Diagnosis Localized edema / R60.0(ICD-10) [facility] 11/14/2023 Admitting Diagnosis Essential (primary) hypertension / I10(ICD-10) [facility] Admitting Diagnosis Mixed hyperlipidemia / E78.2(ICD-10) [facility] Admitting Diagnosis Type 2 diabetes mellitus with unspecified complications / E11.8(ICD-10) [facility] Admitting Diagnosis long term care administrator (current) use of insulin / Z79.4(ICD-10) [facility] Admitting Diagnosis Obstructive sleep apnea (adult) (pediatric) / G47.33(ICD-10) [facility] Admitting Diagnosis Venous insufficiency (chronic) (peripheral) / I87.2(ICD-10) [facility] Admitting Diagnosis Obesity, class 3 / E66.813(ICD-10) [facility] Admitting Diagnosis Body mass index (BMI) 50.0-59.9, adult / Z68.43(ICD-10) [facility] Admitting Diagnosis Morbid (severe) obesity due to excess calories / E66.01(ICD-10) DAKOTAH ANGUIANO [facility] PROCEDURES No Procedure Records Found RESULTS VASCULAR OFFICE/CLINIC NOTE Observed: 11:56 AM Status: F Source: [place] Chief Complaint lle wound History of Present [...] She has had testing done at the [facility] last year which she brought [...] reviewed the patient?s medication list for medication interactions/contraindications and/or for upcoming procedures: [yes or no] [...] TAKE 1 TABLET BY MOUTH EVERY DAY Mylesro 15 mg/0.5 mL subcutaneous solution, 6 mL, 0 Refill(s), INJECT 15MG SUBCUTANEOUSLY ONCE A WEEK pregabalin 150 mg oral capsule, 30 EA, 0 Refill(s), TAKE 1 CAPSULE BY MOUTH DAILY, DO NOT FILL UNTIL 02/13/25 Allergies No active allergies Social History Tobacco 10 or more cigarettes (1/2 pack or more)/day in last 30 days Use:. Cigarettes, 0.5 per day. Packs Electronically signed by Omero Santana 03/23/25 12:01 EDT PODIATRY OFFICE/CLINIC NOTE Observed: 2:31 PM Status: F Source: [place] Order Comment: Missing Attac hment [id number] Can be viewed in source system The content of this note was generated by an [employer] (AI) language dictation. The patient or guardian [...] wraps (gauze, tila bandage, Coban II, tuba enterprise applications manager), Dakins solution, a 40-day course of [...] other blood thinners. The patient resides in [place]. Review of Systems Constitutional: Negative for signs [...] are present bilateral to their lower extremities Positive nonpitting bilateral for edema in either lower extremity. Orthopedic: Bony foot structure appears grossly rectus No pain to palpation bilateral calves. Compartments are soft compressible no pain a portion of the bilateral lower extremity. Extrinsic and intrinsic musculature of the foot are grossly normotonic with strengths 5/5 all movers of the foot and ankle. Negative pain to manually induced passive or active range of motion bilateral and free of overt joint crepitation. Neurological: Epicritic sensation, proprioception, and protective sensation diminished to light touch Negative tinel sign Gross motor intact bilateral lower extremity. Images [Image Removed: 2025-03-11 12:42:14 right leg]2025-03-11 12:42:14 right leg The patient gives verbal consent and understanding to acquire image of physical findings and upload into EHR for documentation. Additional Vitals BP Position/Location: Sitting, Right arm Assessment and Plan: Patient is a 54-year-old female presenting for evaluation and management of a chronic right lower leg ulcer. 1. Skin ulcer of right lower leg with fat layer exposed -Evaluation and Management was extensive with time spent with patient dedicated to discussion of pathogenesis and treatment options for patient's problems such as vascular studies, shoe gear habits/modification, debridement, as well as possible surgical interventions such as the possibility of infected tissue/bone removal depending on depth of infection, or elective position changing procedures. -Sharp excisional Debridement of full thickness ulceration right lower leg not performed today -Imaging was obtained and reviewed -Applied dressing afterwards -Instructed to continue Coban 2 dressing changes as instructed by the wound care center in [place]. Discussed risk, benefits, alternatives of surgical versus conservative intervention. Discussed skin substitute application versus continued conservative care. After lengthy discussion she wants to plan to proceed with skin substitute application. I would like patient to obtain updated vascular lab arterial segmental studies as below. She is amenable with this plan. Referral to vascular surgery at [facility] for second opinion regarding evaluation for peripheral arterial disease given her history of peripheral arterial disease noted on prior ABIs. 2. Venous stasis 3. Venous insufficiency 4. Diabetic peripheral neuropathy 6. Lymphedema 7. History of partial amputation of toe 8. Smoker 9. Leg pain, right 2 views right tib-fib radiographs obtained interpreted reviewed discussed. Orders: C-Reactive Protein Complete Blood Count w/ Differential EKG Erythrocyte Sedimentation Rate Renal Function Panel Chronic right lower leg ulcer with venous stasis changes and possible arterial insufficiency - A complete PARQ discussion was held regarding the risks, benefits, and alternatives for the planned skin grafting procedure. Risks include bleeding, infection, nerve damage, and anesthesia-related complications. Benefits include potential for improved wound healing. Alternatives include continued conservative wound care and further vascular intervention. The patient's questions were answered, and consent was obtained. - Chronic right lower leg ulcer with hemosiderin deposits and chronic venous stasis changes; no current evidence of infection on x-ray; possible contribution from impaired arterial and/or venous blood flow. - Ordered updated labs to rule out infection and updated vascular studies to assess arterial and venous circulation; instructed patient to ensure results are sent to both our office and the vascular specialist. - Referral placed to vascular surgery for further evaluation and management; will obtain prior vascular notes from [facility] for review. - Continue current wound care regimen including Coban 2 wraps, tuba enterprise applications manager, and silver alginate or copper dressings as previously used; maintain dressing changes and compression as directed. - Scheduled for synthetic skin graft in 2-3 weeks after provider returns from leave; initial graft to be a longer-lasting silicone-based product for convenience, with possible staged fish grafts as needed based on response. - Increase aspirin to 81 mg BID for 3-4 weeks post-graft to reduce risk of thrombosis. - Reinforced importance of smoking cessation to optimize wound healing. - Provided education regarding anesthesia options for grafting procedure, including local with sedation versus general anesthesia; anesthesia consult to determine optimal approach. - Continue wound care and monitoring until grafting procedure and vascular evaluation; follow up as scheduled. Updated ABIs and vascular surgery referral as above. Patient and family were consulted at length regarding the goals, risks, and benefits of surgical intervention and the most common complications including delayed healing, mal position, infection, numbness, swelling, deep vein thrombosis, and residual pain and possible need for revisional surgery. Also discussed were idiosyncratic risks such as loss of limb and/or associated with adverse reactions to medications, anesthesia, Venous thromboembolism, or infection were discussed at length with the patient. Expectations and goals of return to weightbearing/work/school time were discussed as tentative and somewhat variable upon patient's symptomatology postoperatively. Patient was encouraged to call or present to the office if there are any unanswered questions. Patient was notified that pain management postoperatively would consist primarily of narcotics such as Lortab, Gabapentin, Tapentadol, and Oxycodone, and only for short course duration postoperatively. Patient does wish to proceed with planned surgical intervention at the conclusion of this conversation. Significant time was spent filling out, and orally reiterating all printed preoperative paperwork and fully explaining intended procedure in layman's terms as well as confirming laterality. Patient denied having further questions at this time regarding the intended surgical procedures. At this point the patient has exhausted all conservative treatment care including: immobilization, P.R.I.C.E. therapy, Cam boot, NSAIDs, Tylenol, prescription medication, topical pain medication, bracing, local wound care and compression greater than 6 weeks of formal physical therapy, shoe gear modification, lifestyle modification and activity modification with little to no relief and some of the conservative treatment modalities causing the patient exacerbation of pain and symptoms. Tentative surgical plan: Right lower leg excisional debridement and preparation of wound, possible skin substitute, punch biopsy, excisional debridement/incision and drainage, removal of all nonviable tissue and bone, possible Unna boot, possible Coban 2, any other needed procedures for treatment of right lower leg ulceration Outpatient/observation/inpatient: Outpatient Patient will be Weightbearing as tolerated in compressive dressing postop Tentative time off work postop: Date of surgery DVT prophylaxis: aspirin 81 BID Preoperative clearance: Primary care physician Patient to be scheduled for skin substitute graft and ABIs as above Medical Decision Making Given all the above, there is low risk of M/M associated with today's encounter and treatment plan. Chronic conditions NOT treated during this visit that affected my overall medical decision making: [] Treatment plans discussed but not opted for at this time: [] Prescribed medication that requires intensive monitoring for toxicity: [] I have reviewed the patient?s medication list for medication interactions/contraindications and/or for upcoming procedures: [yes Time Spent with the Patient I have personally spent [50] minutes on this date, directly related to [...] days Use:. Cigarettes, 0.5 per day. Packs Diagnostic Results XR Tibia/Fibula Right 03/11/25 12:09:47 2 views right tib-fib demonstrate: Ankle mortise [...] fracture dislocations noted. No foreign bodies noted. Signed By: Flynn Urias DPM Electronically signed by Flynn Urias DPM 03/11/25 14:41 EDT XR TIBIA/FIBULA RIGHT Observed: 03/11/20 11:35 AM Status: F Source: [place] 2 views right tib-fib demons trate: Ankle mortise is well aligned and maintained. [...] Signed, Electronically Signed in Other Vendor System) PROGRESS Observed: 02/04/2025 11:29 AM Status: COMPLETED Source: [facility] Please let her know her ECHO showed some improvement in the left side wall thickness, it was severely enlarged, now it is moderate. Important for good BP control to continue to improve this. Everything else looks good. Follow-up as planned in 6 months. Thanks! ORDERS ONLY Observed: 01/30/2025 12:00 AM Status: COMPLETED Source: [facility] [id number] Mitzi Macias F Date Provider Department [place] 01/30/2025 [id number], HISTORICAL MARIO Villalobos [facility] Family History Problem Relation Age of Onset Heart attack Paternal Grandmother Family Status - Relation Status Age at Mother Father Paternal Grandmother PROGRESS Observed: 01/06/2025 11:20 AM Status: COMPLETED Source: [facility] Cardiovascular Medicine [place] [facility] SUBJECTIVE Chief Complaint Patient presents with Congestive Heart Failure Hypertension Hyperlipidemia Mitzi Macias is a 54 y.o. female here for follow-up. PMHx: HFpEF, HTN, HLD, DM, longstanding heavy smoker, COPD, DANIEL, morbid obesity HPI 01/06/2025 Since last seen she was admitted to [facility] for AMS on 12/05/2024. She was [...] Diagnosis Date COPD (chronic obstructive pulmonary disease) ([facility]) Diabetes mellitus ([facility]) Hyperlipidemia Hypertension Sleep apnea [...] , Rfl: ergocalciferol (Vitamin D-2) 1.25 MG (75827 Units) capsule, Take 1.25 mg by mouth., [...] and at bedtime., Disp: , Rfl: HYDROcodone-acetaminophen ([place]) 5-325 mg tablet, TAKE 1 TABLET BY [...] morning and at bedtime., Disp: , Rfl: roflumilast (Daliresp) 250 mcg tablet, TAKE 1 [...] 2 insulin-dependent diabetes mellitus Obesity, BMI 58.9 kg/m??? -Discussed importance of weight loss Sleep apnea, she is not using CPAP because of mask issues. She will be seeing a new case coordinator and I advised she discuss mask options [...] Stress test will need to be lexiscan as she is not very active and she has leg and hip pain. -If she is proceeding with moderate sedation for surgery, she may proceed with moderate risk for cardiovascular complication. Ami Chatterjee APRN-[facility] Cardiovascular Medicine OFFICE VISIT Observed: 01/06/2025 11:20 AM Status: COMPLETED Source: [facility] [id number] Mitzi Macias F Date Provider Department Center 01/06/2025 [id number] CHATTERJEE CARD [facility] Family History Problem Relation Age of Onset Heart attack Paternal Grandmother Family Status - Relation Status Age at Mother Father Paternal Grandmother Level of Service:90974 MT OFFICE/OUTPATIENT ESTABLISHED MOD MDM 30 MIN Reason for Visit and Comments: Congestive Heart Failure [127] Hypertension [132705] Hyperlipidemia [182] PROGRESS Observed: 01/06/2025 11:20 AM Status: COMPLETED Source: [facility] Patient is here today for a 6 [...] weight gain. Cardiovascular: Positive for leg swelling. 36 Observed: 10/21/2024 11:13 AM Status: COMPLETED Source: [facility] Regarding lab results from : MD Mickie Merritt MA Lipids, ALT AST, and BMP are normal. HbA1c was not performed. Continue current management. LM on patient's VM. PROGRESS Observed: 08/08/2024 9:00 AM Status: COMPLETED Source: [facility] Cardiology - [facility] Subjective Mitzi Macias is [...] Diagnosis Date COPD (chronic obstructive pulmonary disease) ([facility]) Diabetes mellitus ([facility]) Hyperlipidemia Hypertension Sleep apnea [...] by mouth at bedtime., Disp: , Rfl: Konstantintri Aerosphere 160-9-4.8 mcg/actuation HFA aerosol inhaler, INHALE [...] , Rfl: ergocalciferol (Vitamin D-2) 1.25 MG (48102 Units) capsule, Take 1.25 mg by mouth., [...] and at bedtime., Disp: , Rfl: HYDROcodone-acetaminophen ([place]) 5-325 mg tablet, TAKE 1 TABLET BY [...] morning and at bedtime., Disp: , Rfl: roflumilast (Daliresp) 250 mcg tablet, TAKE 1 TABLET BY MOUTH DAILY FOR 28 DAYS, Disp: , Rfl: simvastatin (Zocor) 10 mg tablet, Take 1 tablet by mouth in the morning., Disp: , Rfl: Objective Visit Vitals BP 134/68 (BP Location: Right wrist, Patient Position: Sitting) Pulse 80 Ht 1.702 m (5' 7 ) SpO2 95% BMI 55.44 kg/m??? Smoking Status Every Day BSA 2.76 m??? Physical exam: GENERAL: alert and oriented x3, well developed, in no acute distress. HEAD: atraumatic, normocephalic. EYES: SUKHDEEP, EOMI. NECK: trachea midline, no JVD present, no carotid bruits present. CARDIAC: S1, S2 present. RRR. No murmur, rubs, or gallops. RESPIRATORY: CTAB, no increased effort of breathing, no rales, rhonchi, or wheezing. ABDOMEN: soft, nontender, nondistended. EXTREMITIES: Significant skin changes consistent with venous stasis, mild edema bilaterally, right leg ulcer on the lower tejada which is dressed NEURO: strength/sensation equal and symmetric in bilateral upper and lower extremities. PSYCH: appropriate mood, affect, and judgement. Recent Labs 04/04/2024 White blood count 14, hemoglobin 16.7, hematocrit 52.4, platelets 135 Sodium 139, potassium 4.2, BUN 15, creatinine 0.74, GFR above 60, glucose 218, calcium 9.3 Total bilirubin 0.4, AST 19, ALT 22, alk phos 77, total protein 7, albumin 2.9 11/12/2023 Cholesterol 146, LDL 69, HDL 51, triglyceride 127 Imaging and other tests ECG 09/10/2023: Sinus rhythm, abnormal left axis [...] noted lymph nodes have decreased in size. Assessment/Plan Chronic diastolic heart failure On lisinopril, hydralazine, furosemide, and Farxiga. Clinically stable Left ventricular hypertrophy on echo, most likely due to hypertension Legs edema with venous ulcer on the right leg, due to venous insufficiency, she follows with vein specialist Essential hypertension, on lisinopril, hydralazine, furosemide, and Farxiga, well-controlled Hyperlipidemia, on simvastatin, well-controlled Type 2 insulin-dependent diabetes mellitus Obesity, BMI 55.4 kg/m???, she lost some weight on Mounjaro Sleep apnea, she is not using CPAP because of mask issues and she is working on it Tobacco abuse, half to 1 pack/day for many years COPD Kidney stones Plan: Continue current medications including aspirin lisinopril, hydralazine, furosemide, simvastatin and Farxiga Check lipids and LFTs in addition to BMP and HbA1c Patient was counseled about smoking cessation and highly advised to do so to improve her long-term prognosis. Patient states that she tried Chantix and it did not work. She was referred for smoking cessation classes where they offer also nicotine patches which she think it will help her more. The patient was highly advised regarding the importance of losing weight by following low calorie low-carb diet and exercise Follow-up in 6 months Dakotah Anguiano MD,[facility] OFFICE VISIT Observed: 08/08/2024 9:00 AM Status: COMPLETED Source: [facility] [id number] Mitzi Macias F Date Provider Department Center 08/08/2024 [id number] ANGUIANO [facility] Family History Problem Relation Age of Onset Heart attack Paternal Grandmother Family Status - Relation Status Age at Paternal Grandmother Level of Service:69577 MT OFFICE/OUTPATIENT ESTABLISHED MOD MDM 30 MIN Reason for Visit and Comments: Congestive Heart Failure [127] - Denies chest pain, SOB, and palpitations. Hypertension [[id number]] Hyperlipidemia [182] LVH [Other] Edema [[id number]] - Denies worsening edema. She sees wound care for RLE ulcer. She was seeing the vein specialists here in town but they are moving to [place] in a few weeks. PROVIDER LETTER Observed: 06/11/2024 11:01 AM Status: F Source: [facility] Provider Letter June 11, 2024 MITZI MACIAS [address] [place] [id number] : 1970 To Whom It May Concern, Please excuse above patient from work. Date of Illness: From: 06/11/24 8:30am To: 06/11/24 12:30pm Comments: _Brian Macias was with his for her doctor's appointment. Sincerely, Andra Forrester, Block Piler REMINDERS Observed: 06/11/2024 10:52 AM Status: C Source: [facility] Reminders From: Maria Elena Negrete To: EU - Fariha Vargas; Sent: 06/11/2024 10:52:47 EST Show up: 06/11/2024 10:52:00 EST Subject: Sched [address] Reminder Message Please Remember to:_Please call pt to schedule 1 yr f/u as well as CT AP w con due to adrenal myelolipoma (i ordered today06/11/24). PATIENT RELATED REMINDER:_ ( ) Call Patient ( ) Ask Patient to ( ) Call Relative ( ) Schedule Patient ( ) Follow up on Results ( ) Other: PROVIDER RELATED REMINDER:_ ( ) Aviation Medicine Specialist ( ) Call Pharmacy ( ) Call Lab ( ) Other: Special Instructions:_ Comments:_ From: Raquel Tidwell (SHEA - Fariha Vargas) To: SHEA Vargas; Sent: 06/12/2024 15:41:24 EST Show up: 04/08/2025 15:41:00 EDT Subject: RE: Sched [address] UROLOGY OFFICE/CLINIC NOTE Observed: 10/2023 10:51 AM Status: F Source: [facility] Urology Office/Clinic Note Chief Complaint 18 mth HPI Staff 53 yo here 18 month f/u CT for adrenal mass. CT SCAN 05/12/24-[facility] Previous DX: adrenal mass, kidney stone, left flank pain, mixed incontinence, proteinuria Dysuria: _no Incomplete bladder emptying: _no Hematuria: _no Frequency: _q2-3 hrs Urgency: _no Nocturia: _no Stream: _normal Leaking: _no Post void dripping: _no Wearing pads/ Depends: _no Urge incontinence: _no Stress incontinence: _no Incontinence without Sensory Awareness: _no Abdominal pain: _no Flank pain: _no Sexual complaints: _ History of Present Illness Tests reviewed: UA, CT I have reviewed the previous health record information and history for this patient from Dr. Vargas. I have reviewed and verified the staff HPI to be accurate for this encounter. Review of Systems PHQ Score Initial Depression Screen Score: 0 SCORE ROS - Provider Constitutional: denies weight loss, denies hot flashes. Eyes: denies eye problems. Gastrointestinal: denies nausea, denies vomiting. Cardiovascular: denies chest pain or angina. Integumentary: no dryness Musculoskeletal: denies musculoskeletal symptoms. ENMT: denies otolaryngeal symptoms. Respiratory: no shortness of breath. Heme/Lymph: denies easy bleeding tendency, denies easy bruising tendency. Psychiatric: no confusion, no anxiety. Genitourinary: See HPI. Physical Exam Vitals & Measurements HR: 76(Peripheral) BP: 132/68 HT: 67 in HT: 170 cm WT: 176 kg WT: 388.013 lb BMI: 60.9 General Appearance: alert, no distress, well nourished, well developed female. Assessment/Plan Pt here with her today. 1. 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 On 10/21/18, it measured ~2.[address] AP w con 07/27/22 [facility] - Slowly enlarging Left adrenal AML currently measures ~3.[address] AP w con 05/12/24 [facility] - Unremarkable R adrenal gland. Redemonstrated originating from the L adrenal gland is a 4.4 cm nodule with regions of macroscopic fat density likely relating to a myelolipoma. Reviewed imaging with pt, presence of fat indicates benign growth. Will cont to monitor size, some require intervention when they become too large. Follow up [address] AP w con or sooner if needed. Pt understands and agrees with plan. 2. Kidney stone (N20.0: Calculus of kidney) CT AP wo con 12/24/21 - Punctuate nonobstructing calculus LLP. No hydro. CT AP w con 07/27/22 [facility] - A nonobstructing ~1 mm LLP renal calculus, unchanged. More conspicuous on the current exam than on the prior. CT AP w con 05/12/24 [facility] - 4 mm L kidney stone. No hydro. Stone size currently passable. Will also cont to monitor size. Discussed surgical intervention options including ESWL if visible on x-ray (less invasive, lower stone free rate) and ureteroscopy/laser litho with possible stent placement (more invasive, higher stone free rate). Risks and benefits of each discussed. 3. Smoker (F17.200: Nicotine dependence, unspecified, uncomplicated) Began smoking at 18 yo. [1] Increased risk for urothelial cancer. Smoking cessation education attached. 4. Bad odor of urine (R82.90: Unspecified abnormal findings in urine) UA neg. Shares urine has a bad odor. Stressed the importance of high fluid intake. -Increase fluid intake. Goal 8 bottles of water daily. Follow-up With When Contact Information REGLA PHIPPS, Elbert Joya, [facility] [address], [place] [address]- Additional Instructions: [address] AP w con Patient Education Steps to Quit Smoking Dietary Guidelines to Help Prevent Kidney Stones I, Maria Elena Negrete, personally scribed for Dr. Vargas on 06/11/2024 10:51:42. . Documentation recorded by the scribe, Maria Elena Negrete, accurately reflects the services(s) I performed and decisions made by me. Authenticated by Dr. Vargas on 06/11/2024 10:55:01. Problem List/Past Medical History Ongoing Adrenal mass 1 cm to 4 cm in diameter Arthritis Asthma Bad odor of urine COPD type A Headache Hypertension Kidney stone Left flank pain Mixed incontinence Myelolipoma of adrenal gland Proteinuria Smoker Type 2 diabetes mellitus Historical No qualifying data Procedure/Surgical History H/O: hysterectomy, Laparoscopic cholecystectomy, Operative procedure on foot or toes. Medications acetaminophen-hydrocodone 325 mg-5 mg oral tablet albuterol 0.083% Inh Tracey 3 mL amitriptyline 25 mg Tab diclofenac sodium 75 mg Oral EC Tab DULoxetine 30 mg Cap-EC furosemide 20 mg Tab Lantus Solostar Pen 100 units/mL subcutaneous solution lisinopril 20 mg Tab Lyrica, Oral meloxicam, Daily Mounjaro 15 mg/0.5 mL subcutaneous solution NovoLog, SubCutaneous, TIDAC potassium chloride 10 mEq Cap-ER pregabalin 300 mg Cap Spiriva Respimat 60 ACT 2.5 mcg/inh inhalation aerosol Symbicort 160/4.5 inhalation aerosol with adapter Allergies No Known Medication Allergies Social History Alcohol Never., 06/01/2024 Substance Abuse Never., 06/01/2024 Tobacco 10 or more cigarettes (1/2 pack or more)/day in last 30 days Tobacco Use:., 06/11/2024 Family History Cancer: Grandparent. Hypertension: Grandparent. Immunizations Vaccine Date Status influenza virus vaccine, inactivated 05/18/2023 Recorded SARS-CoV-2 (COVID-19) mRNA BNT-162b2 vax 07/19/2021 Recorded SARS-CoV-2 (COVID-19) mRNA BNT-162b2 vax 10/28/2020 Recorded SARS-CoV-2 (COVID-19) mRNA BNT-162b2 vax 10/08/2020 Recorded pneumococcal 23-valent vaccine 04/16/2017 Recorded influenza, unspecified formulation 04/16/2017 Recorded influenza, unspecified formulation 05/10/2016 Recorded influenza, whole 05/02/2013 Recorded measles/mumps/rubella virus vaccine 01/29/1998 Recorded Lab Results Ambulatory Point of Care Results Bilirubin Urine Dipstick: 1+ Small (06/11/24 10:05:00) Blood Urine Dipstick: Negative (06/11/24 10:05:00) Glucose Urine Dipstick: 3+ 1000 mg/dl (06/11/24 10:05:00) Ketones Urine Dipstick: Trace - 5 mg/dl (06/11/24 10:05:00) Leukocytes Urine Dipstick: Negative (06/11/24 10:05:00) Nitrite Urine Dipstick: Negative (06/11/24 10:05:00) Protein Urine Dipstick: 3+ (300 mg/dl) (06/11/24 10:05:00) Specific [place] Urine Dipstick: >=1.030 (06/11/24 10:05:00) Urine Appearance Urine Dipstick: Clear (06/11/24 10:05:00) Urine Color Urine Dipstick: Yellow (06/11/24 10:05:00) Urobilinogen Urine Dipstick: 2 EU/dl (06/11/24 10:05:00) pH Urine Dipstick: 5.5 (06/11/24 10:05:00) Result Comment: Electronical ly Signed By: Elbert VARGAS MD\.br\Date and Time Signed: 06/11/24 10:55 EST\.br\Electronically Co-Signed By: Maria Elena Negrete\.br\Date and Time Co-Signed: 06/11/24 10:53 EST PATIENT EDUCATION Observed: 06/11/2024 10:44 AM Status: C Source: [facility] Patient Education Nephrology Dietary Guidelines to Help [...] for following this plan? Reading food labels ??? Choose foods with no salt added or low-salt labels. Limit your salt (sodium) intake to less than 1,500 mg a day. ??? Choose foods with calcium for each meal and snack. Try to eat about 300 mg of calcium at each meal. Foods that contain 200?500 mg of calcium a serving include: ? 8 oz (237 mL) of milk, hxzushw-ulsiijlzigdw-luthk milk, and calcium- fortifiedfruit juice. Calcium-fortified means that calcium has been [...] much calcium is recommended for you. Shopping ??? Buy plenty of fresh fruits and vegetables. Most people do not need to avoid fruits and vegetables, even if these foods contain nutrients that may contribute to kidney stones. ??? When shopping for convenience foods, choose: ? Whole pieces of fruit. ? Pre-made salads with dressing on the side. ? Low-fat fruit and yogurt smoothies. ??? Avoid buying frozen meals or prepared deli foods. These can be high in sodium. ??? Look for foods with live cultures, such as yogurt and kefir. ??? Choose high-fiber grains, such as whole-wheat breads, oat bran, and wheat cereals. Cooking ??? Do not add salt to food when cooking. Place a salt shaker on the table and allow each person to add their own salt to taste. ??? Use vegetable protein, such as beans, textured vegetable protein (TVP), or tofu, instead of meat in pasta, casseroles, and soups. Meal planning ??? Eat less salt, if told by your dietitian. To do this: ? Avoid eating processed or pre-made food. ? Avoid eating fast food. ??? Eat less animal protein, including cheese, meat, poultry, or fish, if told by your dietitian. To do this: ? Limit the number of times you have meat, poultry, fish, or cheese each week. Eat a diet free of meat at least 2 days a week. ? Eat only one serving each day of meat, poultry, fish, or seafood. ? When you prepare animal proteins, cut pieces into small portion sizes. For most meat and fish, one serving is about the size of the palm of your hand. ??? Eat at least five servings of fresh fruits and vegetables each day. To do this: ? Keep fruits and vegetables on hand for snacks. ? Eat one piece of fruit or a handful of berries with breakfast. ? Have a salad and fruit at lunch. ? Have two kinds of vegetables at dinner. ??? You may be told to limit foods that are high in a substance called oxalate. These include: ? Spinach (cooked), rhubarb, beets, sweet potatoes, and Guine[place] chard. ? Peanuts. ? Potato chips, vincentian fries, and baked potatoes with skin on. ? Nuts and nut products. ? Chocolate. ??? If you regularly take a diuretic medicine, make sure to eat at least 1 or 2 servings of fruits or vegetables that are high in potassium each day. These include: ? Avocado. ? Banana. ? Bladen, prune, carrot, or tomato juice. ? Baked potato. ? Cabbage. ? Beans and split peas. Lifestyle ??? Drink enough fluid to keep your urine pale yellow. This is the most important thing you can do. Spread your fluid intake throughout the day. ??? If you drink alcohol: ? Limit how much you have to: ? 0?1 drink a day for women who are not . ? 0?2 drinks a day for men. ? Know how much alcohol is in your drink. In the [place] one drink equals one 12 oz bottle of beer (355 mL), one 5 oz glass of wine (148 mL), or one 1? oz glass of hard liquor (44 mL). ??? Lose weight if told by your health care provider. Work with your dietitian to find an eating plan and weight loss strategies that work best for you. General information ??? Talk to your health care provider and dietitian about taking daily supplements. Depending on your health and the cause of your kidney stones, you may be told: ? Do not take high-dose supplements of vitamin C (1,000 mg a day or more). ? To take a calcium supplement. ? To take a daily probiotic supplement. ? To take other supplements such as magnesium, fish oil, or vitamin B6. ??? Take hgfk-yyu-qlabpjb and prescription medicines only as told by [...] Contact a dietitian for more information. Summary ??? Kidney stones are deposits of minerals and salts that form inside your kidneys. ??? You can lower your risk of kidney stones by making changes to your diet. ??? The most important thing you can do is drink enough fluid. Drink enough fluid to keep your urine pale yellow. ??? Talk to your dietitian about how much calcium you should have each day, and eat less salt and animal protein as told by your dietitian. This information is not intended to replace advice given to you by your health care provider. Make sure you discuss any questions you have with your health care provider. Document Revised: 10/05/2022 Document Reviewed: 10/05/2022 [employer] Patient Education ? 2023 [employer]Pulmonary Medicine Steps to Quit Smoking Smoking tobacco is [...] to help you succeed. Before you quit: ??? Pick a date to quit. Set a date within the next 2 weeks to give you time to prepare. ??? Write down the reasons why you are quitting. Keep this list in places where you will see it often. ??? Tell your family, friends, and co-workers that you are quitting. Support from people you are close to can make quitting easier. ??? Talk with your health care provider about your options for quitting smoking. ??? Find out what treatment options are covered by your health insurance. ??? Identify people, places, things, and activities that make you want to smoke (triggers). Avoid them. What first steps can I take to quit smoking? Throw away all cigarettes at home, at work, and in your car. ??? Throw away smoking accessories, such as ashtrays and lighters. ??? Clean your car. Make sure to empty the ashtray. ??? Clean your home, including curtains and carpets. [...] provider tells you to. Quit right away ??? Quit smoking completely, instead of gradually reducing how much you smoke over a period of time. Stopping smoking right away may be more successful than gradually quitting. ??? Attend in-person counseling to help you build problem-solving skills. You are more likely to succeed in quitting if you attend counseling sessions regularly. Even short sessions of 10 minutes can be effective. Take medicine You may take medicines to help you quit smoking. Some medicines require a prescription. You can also purchase uhzd-brx-rkqhkig medicines. Medicines may have nicotine in them to replace the nicotine in cigarettes. Medicines may: ??? Help to stop cravings. ??? Help to relieve withdrawal symptoms. Your health care provider may recommend: ??? Nicotine patches, gum, or lozenges. ??? Nicotine inhalers or sprays. ??? Non-nicotine medicine that you take by mouth. Find resources Find resources and support systems that can help you quit smoking and remain smoke-free after you quit. These resources are most helpful when you use them often. They include: ??? Online chats with a counselor. ??? Telephone quitlines. ??? Printed self-help materials. ??? Support groups or group counseling. ??? Text messaging programs. ??? Mobile phone apps or applications. Use apps that can help you stick to your quit plan by providing reminders, tips, and encouragement. Examples of free services include Quit Guide from the CDC and smokefree.gov What can I do to make it easier to quit? Reach out to your family and friends for support and encouragement. Call telephone quitlines, such as 0-900-GVCK-NOW, reach out to support groups, or work with a counselor for support. ??? Ask people who smoke to avoid smoking around you. ??? Avoid places that trigger you to smoke, such as bars, parties, or smoke- break areas at work. ??? Spend time with people who do not smoke. ??? Lessen the stress in your life. Stress can be a smoking trigger for some people. To lessen stress, try: ? Exercising regularly. ? Doing deep-breathing exercises. ? Doing yoga. ? Meditating. What benefits will I see if I quit smoking? Over time, you should start to see positive results, such as: ??? Improved sense of smell and taste. ??? Decreased coughing and sore throat. ??? Slower heart rate. ??? Lower blood pressure. ??? Clearer and healthier skin. ??? The ability to breathe more easily. ??? Fewer sick days. Summary ??? Quitting smoking can be very challenging. Do not get discouraged if you are not successful the first time. Some people need to make many attempts to quit before they achieve long-term success. ??? When you decide to quit smoking, create a plan to help you succeed. ??? Quit smoking right away, not slowly over a period of time. ??? Find resources and support systems that can help you quit smoking and remain smoke-free after you quit. This information is not intended to replace advice given to you by your health care provider. Make sure you discuss any questions you have with your health care provider. Document Revised: 06/16/2022 Document Reviewed: 06/16/2022 [employer] Patient Education ? 2023 [employer] ALLERGIES DATE TYPE / CODE NAME / CODE REACTION SEVERITY SOURCE SYSTEMIC/70981140 6(SNOMED CT) NO KNOWN ALLERGIES [facility] /[id number](SNOM ED CT) No Known Medication Allergies [facility] ENCOUNTERS ADMIT/DISCHARGE ACCOUNT NUMBER ADMITTING ENCOUNTER CLASS LOCATION SOURCE 03/24/2025 [id number] [facility] 03/24/2025 [id number] [facility] 03/23/2025/03/23/20 25 [id number] [facility] 03/11/2025/03/11/20 [id number] Ambulatory WP Diag CtrBuilding:W PDC Radiology Ortho [facility] 03/11/2025/03/11/20 25 [id number] Ambulatory Ortho/Sport MedBuilding:O rtho/Sport MedRoom: Room 22 [facility] 01/29/2025/01/30/20 25 [id number] Ambulatory Building:[facility] 01/26/2025/01/27/20 25 [id number] Ambulatory Building:[facility] 01/06/2025/01/07/20 25 [id number] Ambulatory Building:[facility] 12/09/2024/12/10/19 25 [id number] Ambulatory Building:[facility] 10/27/2024/10/28/19 25 [id number] Ambulatory Building:[facility] 10/08/2024/10/09/19 25 [id number] Ambulatory Building:[facility] 08/27/2024/08/27/19 25 [id number] Ambulatory Building:[facility] 08/08/2024/08/08/19 25 [id number] Ambulatory Building:[facility] 07/14/2024/07/14/19 [id number] Ambulatory Building:[facility] AMMED [facility] 06/11/2024/06/11/20 24 [id number] [place]: Exam 5 [facility] 05/27/2024/05/27/20 24 [id number] Ambulatory Building:NOMS ENDO [facility] 05/08/2024 [id number] [place] [facility] 04/14/2024/04/14/20 24 [id number] [facility] PAYERS ENCOUNTER GUARANTOR PAYER SUBSCRIBER SOURCE 03/24/2025 Mitzi Dickey: [place] [id number] Primary Insurance:[facility] Number: Effective Date:3870-18-76Iork Name:[place] [address]WP: Mitzi Dickey: [id number] [place] [phone] [facility] 03/24/2025 Mitzi Dickey: [place] [phone] Primary Insurance:[facility] Number: Effective Date:6180-62-31Hhor Name:[place] [id number]: Mitzi Dickey: [id number] [place] [id number] [facility] 03/23/2025 Mitzi Dickey: [place] [id number] Primary Insurance:[facility] Dual PlansPolicy Number: Effective Date:2179-66-23Hlvb Name:[address] [address]PW: Mitzi Dickey: [id number] [place] [id number] [facility] 03/11/2025 Mitzitalia MaciasB: [place] [address] Primary Insurance:[facility] Dual PlansPolicy Number: Effective Date:7335-34-38Twlr Name:[address] [address]SZ: Mitzitalia MaciasB: [id number] [place] [address] [facility] 03/11/2025 Mitzitalia MaciasB: [place] [address] Primary Insurance:[facility] Dual PlansPolicy Number: Effective Date:9664-23-92Ttoz Name:[address] [address]UW: Mitzitalia MaciasB: [id number] [place] [address] [facility] 01/29/2025 MITZI L JENNIB: [place], [place] [address]Yba: (HP) Primary Insurance:OPTUMCARE AARPPolicy Number: [id number] Date:2024-07-09 MITZI Gilberto JENNIB: [id number] [place] [address] [facility] 01/26/2025 MITZI L JENNIB: [place], [place] [address]Buc: (HP) Primary Insurance:OPTUMCARE AARPPolicy Number: [id number] Date:2023-09-07 MITZI ARTEAGAB: [id number] [place] [address] [facility] 01/06/2025 Primary Insurance:UNITED HEALTHCARE MEDICAREPolicy Number: [id number] Date:2017-08-09 MITZI ARTEAGAB: [id number] [place] [address] [facility] 12/09/2024 MITZI L JENNIB: [place], [place] [address]Jca: (HP) Primary Insurance:OPTUMCARE AARPPolicy Number: [id number] Date:2023-09-07 MITZI ARTEAGAB: [id number] [address] [facility] 10/27/2024 MITZI ARTEAGAB: [place], [place] [address]And: (HP) Primary Insurance:OPTUMCARE AARPPolicy Number: [id number] Date:2023-09-07 MITZI ARTEAGAB: [id number] [address] [facility] 10/08/2024 MITZI ARTEAGAB: [place], [place] [address]Inj: (HP) Primary Insurance:OPTUMCARE AARPPolicy Number: [id number] Date:2023-09-07 MITZI ARTEAGAB: [id number] [address] [facility] 08/27/2024 MITZI ARTEAGAB: [place], [place] [address]Vyo: (HP) Primary Insurance:OPTUMCARE AARPPolicy Number: [id number] Date:2023-09-07 MITZI ARTEAGAB: [id number] [address] [facility] 08/08/2024 Primary Insuranc e:AARP MEDICARE ADVANTAGEPolicy Number: [id number] Date:2023-09-07 MITZI ARTEAGAB: [id number] [place] [address] [facility] 07/14/2024 MITZI ARTEAGAB: [place], [place] [address]Sug: (HP) Primary Insurance:OPTUMCARE AARPPolicy Number: [id number] Date:2023-09-07 MITZI MACIASB: [id number] [place] [address] [facility] 06/11/2024 MITZI Macias BRITNEYSHIRINB: GARDENA STTel: ~~( 41 (HP) Primary Insurance:MEDICAREPolic y Number: [id number] Date:2023-07-09 MITZITALIA JEFFERY [facility] 05/27/2024 MITZI L JENNIB: [place], [place] [address]Ezh: (HP) Primary Insurance:OPTUMCARE AARPPolicy Number: [id number] Date:2023-09-07 MITZI Macias BRITNEYSHIRINB: [id number] [place] [address] [facility] 05/08/2024 MITZI L JENNIB: [facility] ~(4 19 (HP) Primary Insurance:MEDICAREPolic y Number: [id number] Date:2023-07-09 MITZI JEFFERY [facility] 04/14/2024 MITZI L BRITNEYSHIRINB: [place], [place] [address]Dtz: (HP) Primary Insurance:[employer]ARP MEDICARE COMPLETEPolicy Number: [id number] Date:2023-09-07 MITZI L JENNIB: [id number] [place] [address] [facility] 04/14/2024 Secondary [facility]: [id number] Date:2023-09-07 MITZI Gilberto JENNIB: [id number] [place] [id number] [facility]
--- OUTSIDE RECORDS SUMMARY | 2025-04-06 10:44 | XMS_ITS | Encounter Summary ---
Author Organization [facility] Address [address] [place] [address] Care Team Providers Care Serging 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 Name Role Phone Ty Amin MD Primary Care Provider [phone] Mckayla Blas NP Unavailable [phone] Mckayla Blas NP Unavailable [phone] Encounter Details Date Type Department Care [...] [facility] [address] [place] [address] Rain Souza MD [address] [place] [address] documented as of this encounter Procedures Procedure Name Priority Date/Time Associated Diagnosis Comments MR LUMBAR SPINE WO CON 05/12/2024 2:41 PM EST documented in this encounter Results * MR LUMBAR SPINE WO CON (05/12/2024 2:41 PM EST) Anatomical Region Laterality Modality Other 05/12/2024 2:41 PM EST Narrative 05/12/2024 2:43 PM EST The [address] [address] Magnetic Resonance Report Signed Patient: MITZI MACIAS MR#: [id number] : 1970 Acct:[id number] Age/Sex: 53 / F ADM Date: 05/12/24 Loc: MRI Attending Dr: Angela Chin GUARD LIEUTENANT Ordering Physician: Angela Chin NP Date of Service: 05/12/24 Procedure(s): MR lumbar spine wo con Accession Number(s): [id number] cc: Mckayla Blas NP; Angela Chin NP [place] [address] Patient Name: MITZI MACIAS MRN: [facility]:[id number] date: 1970 Sex: F Assigned Patient Location: MRI Current Patient Location: CT Accession/Order Number: [id number] Exam Date: 05/12/2024 09:21 Report Date: 05/12/2024 [...] Signed By: 05/12/24 1443 DD/ 40 TD/TT: Sheet Metal Former: Procedure Note Radiology, Radiologist, MD - 05/12/2024 [place] [address] Magnetic Resonance Report Signed Patient: MITZI MACIAS LMR#: [id number] : 1970Acct:[id number] Age/Sex: 53 / FADM Date: 05/12/24 Loc: MRI Attending Dr: Angela Chin GUARD LIEUTENANT Ordering Physician: Angela Chin NP Date of Service: 05/12/24 Procedure(s): MR lumbar spine wo con Accession Number(s): [id number] cc: Mckayla Blas GUARD LIEUTENANT; Angela Chin NP The [place] [id number] Patient Name: MITZI MACIAS MRN: [id number] date: 1970 Sex: F Assigned Patient Location: MRI Current Patient Location: CT Accession/Order Number: [id number] Exam Date: 05/12/2024 09:21 Report Date: 05/12/2024 [...] M.D. Signed By:05/12/24 1443 DD/ 144 TD/TT: Sheet Metal Former: Generic External Data Provider [facility] Final Result documented in this encounter Visit Diagnoses Not on filedocumented in this encounter Additional Health Concerns Assessment Noted Time PHQ-9 Depression Total Score: 3 01/17/20 24 10:08 AM EDT documented as of this encounter Care Teams Serging 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 Relationship Specialty Start Date End Date Ty Amin MD PCP - General Family Medicine 09/20/23 Mckyala Blas NP [address] [place] [address] PCP - [facility] 09/07/23 01/11/25 Mckayla Blas NP Nurse Practitioner Family Medicine 09/20/23 documented as of this encounter
--- OUTSIDE RECORDS SUMMARY | 2025-04-06 10:44 | XMS_ITS | Encounter Summary ---
Author Organization [facility] Address [address] [place] [address] Care Team Providers Care Regional Refrigerated Cdl Truck Driver Name Role Phone Ty Amin MD Primary Care Provider [phone] Mckayla Blas MANAGER PRODUCT DESIGN Unavailable [phone] Mckayla Blas NP Unavailable [phone] Encounter Details Date Type Department Care Team (Late st Contact Info) Description 01/07/2025 Abstract [facility] [address] [place] [address] Mckayla Blas NP [address] [facility] [place] [address] Social History Tobacco Use Types Packs/Day Years [...] you attend chur ch or yazidi services? More than 4 times per year 08/26/2024 Do you belong to any clubs o r organizations such as restoration groups, unions, fraternal or athletic groups, or [...] any time in the past [facility], were you homeless or living [...] [facility] [address] [place] [address] Rain Souza MD [address] [place] [address] documented as of this encounter Visit Diagnoses Not on filedocumented in this encounter Additional Health Concerns Assessment Noted Time PHQ-9 Depression Total Score: 3 01/17/20 24 10:08 AM EDT documented as of this encounter Care Teams Regional Refrigerated Cdl Truck Driver Relationship Specialty Start Date End Date Ty Amin MD PCP - General Family Medicine 09/20/23 Mckayla Blas NP [address] [place] [address] PCP - [facility] 09/07/23 01/11/25 Mckayla Blas NP Nurse Practitioner Family Medicine 09/20/23 documented as of this encounter
--- OUTSIDE RECORDS SUMMARY | 2025-04-06 10:44 | XMS_ITS | Encounter Summary ---
Author Organization [facility] Address [address] [place] [address] Care Team Providers Care Emery Grinder Name Role Phone Ty Amin MD Primary Care Provider [phone] Mckayla Blas NP Unavailable [phone] Mckayla Blas NP Unavailable [phone] Encounter Details Date Type Department Care Team (Late st Contact Info) Description 05/12/2024 Orders Only [facility] [address] [place] [address] Angela Cochran NP [address] [place] [address] Social History Tobacco Use Types [...] Recorded Patient Health Questionnaire-2 Score 1 01/17/2024 [facility] - Occupational [...] Visit [facility] [address] [place] [address] Rain Souza MD [address] [place] [address] documented as of this encounter Procedures Procedure [...] documented as of this encounter Care Teams Emery Grinder Relationship Specialty Start Date End Date Ty Amin MD PCP - General Family Medicine 09/20/23 Mckayla Blas NP [address] [place] [address] PCP - [facility] 09/07/23 01/11/25 Mckayla Blas NP Nurse Practitioner Family Medicine 09/20/23 documented as of this encounter
--- OUTSIDE RECORDS SUMMARY | 2025-04-06 10:44 | XMS_ITS | Encounter Summary ---
Author Organization [facility] Address [address] [place] [address] Care Team Providers Care Bag Maker Name Role Phone Ty Amin MD Primary Care Provider [phone] Ty Amin MD Primary Care Provider [phone] Mckayla Blas DISTRIBUTION ANALYST Unavailable [phone] Mckayla Blas DISTRIBUTION ANALYST Unavailable [phone] Encounter Details Date Type Department Care Team (Late st Contact Info) Description 08/31/2023 Clinisync Result Encounter [facility] External Department Unsolicited Andra Alcala PA [address] [place] [address] Dr [address] [place], [place] [phone] Social History Tobacco Use Types Packs/Day Years [...] Recorded Patient Health Questionnaire-2 Score 2 07/10/2023 [facility] - Occupational Stress Questionnaire [...] [facility] [address] [place] [address] Rain Suoza MD [address] [place] [address] documented as of this encounter Procedures Procedure [...] PM EST 09/10/2023 2:29 PM EST Narrative [facility] - 09/16/2023 1:07 PM EDT us Generic External Data Provider LAB BLOOD ORDERAB LES Final Result Performing Organization Address City/[facility]/ZIP Co de Phone Number [facility] * BLOOD CULTURE 1 (09/10/2023 2:05 PM EST) Pathologist [facility] BLOOD CULTURE 1 Blood Culture 1 NG5D NO GROWTH AT 5 DAYS.^NO GROWTH AT 5 DAYS. [facility] 09/10/2023 2:05 PM EST 09/10/2023 2:28 PM EST Narrative [facility] - 09/16/2023 1:07 PM EDT us Generic External Data Provider LAB BLOOD ORDERAB LES Final Result Performing Organization Address [facility] de Phone Number [facility] * ECG 12-LEAD (08/31/2023 6:08 PM EST) Anatomical Region Laterality Modality Other 08/31/2023 6:08 PM EST Narrative 09/02/2023 7:32 [place] [address] Electrocardiograph Report Signed Patient: MITZI MACIAS MR#: [id number] : 1970 Acct:[id number] Age/Sex: 53 / F ADM Date: 08/31/23 Loc: [place] 214-[address]: Jacqueline Becerra D.O. Ordering Physician: Andra Alcala Date of Service: 08/31/23 Procedure(s): ECG 12 lead Accession Number(s): [id number] cc: [facility] Test Date: 2023-08-31 Pat Name: MITZI MACIAS Department: Room: - Gender: Female Chief Dispatcher Service: : 1970 Requested By: MCKAYLA BLAS Order Number: [id number] Reading MD: LAURI DIOR Measurements Intervals [place] Rate: 102 P: 67 ME: 144 QRS: 52 QRSD: 72 T: 49 QT: 326 QTc: 385 Interpretive Statements 1120 Sinus tachycardia 4068 Nonspecific Twave abnormality 8102 Low QRS voltage in chest leads 9140 abnormal rhythm ECG Compared to ECG 12/04/2022 21:27:48 Electronically Signed On 09-02-2023 7:31:43 EST by LAURI DIOR Dictated By: Lauri Dior D.O. Signed By: 09/02/23731 DD/ 07 TD/TT: Investigator Vice: Procedure Note Radiology, Radiologist, MD - 09/02/2023 [place] [address] Electrocardiograph Report Signed Patient: MITZI MACIAS LMR#: [id number] : 1970Acct:[id number] Age/Sex: 53 / FADM Date: 08/31/23 Loc: [place] 214-[address]: Jacqueline Becerra D.O. Ordering Physician: Andra Alcala Date of Service: 08/31/23 Procedure(s): ECG 12 lead Accession Number(s): [id number] cc: [facility] Test Date: 2023-08-31 Pat Name: MITZI MACIAS Department: Room: - Gender: Female Chief Dispatcher Service: : 1970 Requested By: MCKAYLA BLAS Order Number: [id number] Reading MD: LAURI DIOR Measurements Intervals [place] Rate: 102 P: 67 ME: 144 QRS: 52 QRSD: 72 T: 49 QT: 326 QTc: 385 Interpretive Statements 1120 Sinus tachycardia 4068 Nonspecific Twave abnormality 8102 Low QRS voltage in chest leads 9140 abnormal rhythm ECG Compared to ECG 12/04/2022 21:27:48 Electronically Signed On 09-02-2023 7:31:43 EST by LAURI DIOR Dictated By: Lauri Dior D.O. Signed By:09/02/23731 DD/ 07 TD/TT: Investigator Vice: Andra MAYERS [facility] Final Result documented in this encounter Visit Diagnoses Not on filedocumented in this encounter Care Teams Bag Maker Relationship Specialty Start Date End Date Ty Amin MD PCP - General Family Medicine 01/05/23 09/19/23 Ty Amin MD PCP - General Family Medicine 09/20/23 Mckayla Blas NP [address] [place] [address] PCP - [facility] 09/07/23 01/11/25 Mckayla Blas NP Nurse Practitioner Family Medicine 09/20/23 documented as of this encounter
--- OUTSIDE RECORDS SUMMARY | 2025-04-06 10:44 | XMS_ITS | Encounter Summary ---
Author Organization [facility] Address [address] [place] [address] Care Team Providers Care Sourcing Internship Name Role Phone Ty Amin MD Primary Care Provider [phone] Ty Amin MD Primary Care Provider [phone] Mckayla Blas DISTRICT ATTORNEY Unavailable [phone] Mckayla Blas DISTRICT ATTORNEY Unavailable [phone] Encounter Details Date Type Department Care Team (Late st Contact Info) Description 09/12/2023 Orders Only [facility] [address] [place] [address] Social History Tobacco Use Types Packs/Day Years [...] How often do you attend chur or yazdanism services? 1 to 4 times per year [...] Recorded Patient Health Questionnaire-2 Score 2 07/10/2023 [facility] [...] [facility] [address] [place] [address] Rain Souza MD [address] [place] [address] documented as of this encounter Procedures Procedure Name Priority Date/Time Associated Diagnosis Comments XR CHEST 1 VIEW Routine 09/11/2023 4:52 PM EST documented in this encounter Results * XR chest 1 view (09/11/2023 4:52 PM EST) Anatomical Region Laterality Modality Chest Radiographic Kalani ging [facility] IMG XR PROCEDURES Final Result documented in this encounter Visit Diagnoses Not on filedocumented in this encounter Care Teams Sourcing Internship Relationship Specialty Start Date End Date Ty Amin MD PCP - General Family Medicine 01/05/23 09/19/23 Ty Amin MD PCP - General Family Medicine 09/20/23 Mcakyla Blas NP [address] [place] [address] PCP - [facility] 09/07/23 01/11/25 Mckayla Blas NP Nurse Practitioner Family Medicine 09/20/23 documented as of this encounter
--- OUTSIDE RECORDS SUMMARY | 2025-04-06 10:44 | XMS_ITS | Encounter Summary ---
Author Organization [facility] Address [address] [place] [address] Care Team Providers Care Elect Equip Maint Eng Name Role Phone Ty Amin MD Primary Care Provider [phone] Mckayla Blas SIDE PULLER Unavailable [phone] Mckayla Blas NP Unavailable [phone] Encounter Details Date Type Department Care Team (Late st Contact Info) Description 07/14/2024 Orders Only [facility] [address] [place] [address] Mckayla Blas NP [address] [facility] [place] [address] Social History Tobacco Use Types Packs/Day Years [...] 1 01/17/2024 [facility] [place] - Occupational Stress Questionnaire Answer Date Recorded [...] Visit [facility] [address] [place] [address] Rain Souza MD [address] [place] [address] documented as of this encounter Procedures Procedure [...] documented as of this encounter Care Teams Elect Equip Maint Eng Relationship Specialty Start Date End Date Ty Amin MD PCP - General Family Medicine 09/20/23 Mckayla Blas NP [address] [place] [address] PCP - [facility] 09/07/23 01/11/25 Mckayla Blas NP Nurse Practitioner Family Medicine 09/20/23 documented as of this encounter
--- OUTSIDE RECORDS SUMMARY | 2025-04-06 10:44 | XMS_ITS | Encounter Summary ---
Author Organization [facility] Address [id number] [address] [place] [address] Care Team Providers Care Roving Or Yarn Color Checker Name Role Phone Mckayla Blas APRN-WOOL SHEARING SUPERVISOR Primary Care Provider Encounter Details Date Type Department Care Team (Late st Contact Info) Description 05/03/2020 [facility]phone [facility] [address] [place] [address] Tramaine Romero DO [address] [place] [address], [address] [id number] Social History Tobacco Use Types Packs/Day Years [...] on filedocumented in this encounter Care Teams Roving Or Yarn Color Checker Relationship Specialty Start Date End Date Mckayla Blas [place] [address] PCP - General Nurse Practitioner 09/25/18 documented as of this encounter
--- OUTSIDE RECORDS SUMMARY | 2025-04-06 10:44 | XMS_ITS | Encounter Summary ---
Author Organization [employer] Address [id number] [address] [place] [address] Care Team Providers Care Compacting 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/Tender Name Role Phone JuanjoseMckayla carcamo Krystal DESIGN TRANSFERRER-AIR PUMPER Primary Care Provider Encounter Details Date Type Department Care Team (Late st Contact Info) Description 05/31/2020 Orders Only [facility] [address] [place] [address] External, Scanning Provider Social History Tobacco Use [...] ECG ORDERABLES Final Result Performing Organization Address [facility] Co de Phone Number [...] ECG ORDERABLES Final Result Performing Organization Address [facility] Co de Phone Number MANUALLY TRANSCRIBED RESULTS * Pulmonary function test (10/24/2018) us Scanning Provider External PFT ORDERABLES Final Result Performing Organization Address [facility] Co de Phone Number MANUALLY TRANSCRIBED RESULTS * Nuc stress Lexiscan/Exercise (12/12/2016) Anatomical Region Laterality Modality Chest N/A Nuclear Medicine us Scanning Provider External CV STRESS ORDERABLES Final Result documented in this encounter Visit Diagnoses Not on filedocumented in this encounter Care Teams Compacting 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/Tender Relationship Specialty Start Date End Date Mckayla Blas, DESIGN TRANSFERRER-AIR PUMPER [address] [place] [address] PCP - General Nurse Practitioner 09/25/18 documented as of this encounter
--- OUTSIDE RECORDS SUMMARY | 2025-04-06 10:44 | XMS_ITS | Encounter Summary ---
Author Organization [facility] Address [address] [facility] [place] [address] Care Team Providers Care Medicare Interviewer Name Role Phone Ty Amin MD Primary Care Provider Mckayla Blas CLINICIAN ONCOLOGY Unavailable [phone] Encounter Details Date Type Department Care Team (Late st Contact Info) Description 02/18/2025 Abstract [facility] [address] [place] [address] Mckayla Blas NP [address] [place] [address] Social History Tobacco Use Types Packs/Day Years [...] do you attend chur or advent services? More than 4 times per year [...] [facility] [address] [place] [address] Rain Souza MD [address] [place] [address] documented as of this encounter Visit Diagnoses Not on filedocumented in this encounter Additional Health Concerns Assessment Noted Time PHQ-9 Depression Total Score: 3 01/17/20 24 10:08 AM EDT documented as of this encounter Care Teams Medicare Interviewer Relationship Specialty Start Date End Date Ty Amin MD PCP - General Family Medicine 09/20/23 Mckayla Blas NP Nurse Practitioner Family Medicine 09/20/23 documented as of this encounter
--- OUTSIDE RECORDS SUMMARY | 2025-04-06 10:44 | XMS_ITS | Encounter Summary ---
Author Organization [facility] Address [address] [place] [address] Care Team Providers Care Heating And Ventilation Engineer Name Role Phone Ty Amin MD Primary Care Provider [phone] Mckayla Blas NP Unavailable [phone] Mckayla Blas NP Unavailable [phone] Encounter Details Date Type Department Care [...] Patient Health Questionnaire-2 Score 1 01/17/2024 [facility] [...] [facility] [address] [place] [address] Rain Souza MD [address] [place] [address] documented as of this encounter Procedures Procedure Name Priority Date/Time Associated Diagnosis Comments CT ABDOMEN PELVIS W CON 05/12/2024 2:16 PM EST documented in this encounter Results * CT ABDOMEN PELVIS W CON (05/12/2024 2:16 PM EST) Anatomical Region Laterality Modality Other 05/12/2024 2:16 PM EST Narrative 05/12/2024 2:19 PM EST The [address] [address] [address] Scan Report Signed Patient: MITZI MACIAS MR#: [id number] : 1970 Acct:[id number] Age/Sex: 53 / F ADM Date: 05/12/24 Loc: CT Attending Dr: Sarah MAYERS Ordering Physician: Sarah Vega Date of Service: 05/12/24 Procedure(s): CT abdomen pelvis w con Accession Number(s): [id number] cc: Mckayla Blas NP [place] [address] [place], [place] [address] Patient Name: MITZI MACIAS MRN: [facility]:[id number] date: 1970 Sex: F Assigned Patient Location: CT Current Patient Location: Accession/Order Number: [id number] Exam Date: 05/12/2024 11:15 Report Date: 05/12/2024 [...] Signed By: 05/12/24 1419 DD/ 1416 TD/TT: Licensed Bondsman: Procedure Note Radiology, Radiologist, MD - 05/12/2024 [place] [address] CT Scan Report Signed Patient: MITZI MACIAS LMR#: [id number] : 1970Acct:[id number] Age/Sex: 53 / FADM Date: 05/12/24 Loc: CT Attending Dr: Sarah MAYERS Ordering Physician: Sarah Vega Date of Service: 05/12/24 Procedure(s): CT abdomen pelvis w con Accession Number(s): [id number] cc: Mckayla Blas NP The [place] [id number] Patient Name: MITZI MACIAS MRN: [id number] date: 1970 Sex: F Assigned Patient Location: CT Current Patient Location: Accession/Order Number: [id number] Exam Date: 05/12/2024 11:15 Report Date: 05/12/2024 [...] M.D. Signed By:05/12/24 1419 DD/ 1416 TD/TT: Licensed Bondsman: Generic External Data Provider [facility] Final Result documented in this encounter Visit Diagnoses Not on filedocumented in this encounter Additional Health Concerns Assessment Noted Time PHQ-9 Depression Total Score: 3 01/17/20 24 10:08 AM EDT documented as of this encounter Care Teams Heating And Ventilation Engineer Relationship Specialty Start Date End Date Ty Amin MD PCP - General Family Medicine 09/20/23 Mckayla Blas NP [address] [place] [address] PCP - [facility] 09/07/23 01/11/25 Mckayla Blas NP Nurse Practitioner Family Medicine 09/20/23 documented as of this encounter
--- OUTSIDE RECORDS SUMMARY | 2025-04-06 10:44 | XMS_ITS | Encounter Summary ---
Author Organization [facility] Address [id number] [address] [place] [address] Care Team Providers Care Air Traffic Systems Technician Name Role Phone JuanjoseMckayla carcamo Krystal CHAMBER WALKER-ENGINEERING CLERK Primary Care Provider Encounter Details Date Type Department Care Team (Late st Contact Info) Description 06/11/2020 Orders Only [facility] [address] [place] [id number] External, Scanning Provider Social History Tobacco Use [...] on filedocumented in this encounter Care Teams Air Traffic Systems Technician Relationship Specialty Start Date End Date Mckayla Blas, CHAMBER WALKER-ENGINEERING CLERK [address] [place] [address] PCP - General Nurse Practitioner 09/25/18 documented as of this encounter
--- OUTSIDE RECORDS SUMMARY | 2025-04-06 10:45 | XMS_ITS | Encounter Summary ---
Author Organization [facility] Address [address] [place] [address] Care Team Providers Care Assembler Dielectric Heater Name Role Phone Ty Amin MD Primary Care Provider [phone] Mckayla Blas NP Unavailable [phone] Mckayla Blas NP Unavailable [phone] Encounter Details Date Type Department Care [...] Recorded Patient Health Questionnaire-2 Score 1 01/17/2024 [facility] - [...] [facility] [address] [place] [address] Rain Souza MD [address] [place] [address] documented as of this encounter Procedures Procedure Name Priority Date/Time Associated Diagnosis Comments SEGMENTAL BLOOD PRESSURE 04/24/2024 11:20 AM EDT documented in this encounter Results * SEGMENTAL BLOOD PRESSURE (04/24/2024 11:20 AM EDT) Anatomical Region Laterality Modality Radiographic Kalani ging 04/24/2024 11:2 0 AM EDT Narrative 04/24/2024 11:23 AM EDT The [address] [address] Vein Report Signed Patient: MITZI MACIAS MR#: [id number] : 1970 Acct:[id number] Age/Sex: 53 / F ADM Date: 04/24/24 Loc: VC Attending Dr: Rafael Gongora Ordering Physician: Rafael Gongora Date of Service: 04/24/24 Procedure(s): VC SEGMENTAL PRESSURES Accession Number(s): [id number] cc: Mckayla Blas NP; Rafael Gongora The [place] [address] Patient Name: MITZI MACIAS MRN: [id number] date: 1970 Sex: F Assigned Patient Location: VC Current Patient Location: VC Accession/Order Number: [id number] Exam Date: 04/24/2024 10:25 Report Date: 04/24/2024 11:20 At the request of: RAFAEL GONGORA Procedure: VC SEGMENTAL PRESSURES EXAM: VC SEGMENTAL PRESSURES HISTORY: R09.89 COMPARISON: None. FINDINGS: Segmental pressures presented as follows (right, left) in mmHg. Brachial: 169, 166 Upper thigh: Not obtained Lower thigh: 129, 119 Calf: 124, 106 DPA: 108, 105 MATERIAL LIAISON: 100, 91 1st Toe: 124, 142 ISABELLE: [...] Signed By: 04/24/24 1123 DD/ 1120 TD/TT: Appraiser Art: Procedure Note Radiology, Radiologist, MD - 04/24/2024 [place] [address] Vein Report Signed Patient: MITZI MACIAS LMR#: [id number] : 1970Acct:[id number] Age/Sex: 53 / FADM Date: 04/24/24 Loc: VC Attending Dr: Rafael Gongora Ordering Physician: Rafael Gongora Date of Service: 04/24/24 Procedure(s): VC SEGMENTAL PRESSURES Accession Number(s): [id number] cc: Mckayla Blas NP; Rafael Gongora [place] [id number] Patient Name: MITZI MACIAS MRN: [facility]:[id number] date: 1970 Sex: F Assigned Patient Location: VC Current Patient Location: VC Accession/Order Number: [id number] Exam Date: 04/24/2024 10:25 Report Date: 04/24/2024 11:20 At the request of: RAFAEL GONGORA Procedure: VC SEGMENTAL PRESSURES EXAM: VC SEGMENTAL PRESSURES HISTORY: R09.89 COMPARISON: None. FINDINGS: Segmental pressures presented as follows (right, left) in mmHg. Brachial: 169, 166 Upper thigh: Not obtained Lower thigh: 129, 119 Calf: 124, 106 DPA: 108, 105 MATERIAL LIAISON: 100, 91 1st Toe: 124, 142 ISABELLE: [...] M.D. Signed By:04/24/24 1123 DD/ 1120 TD/TT: Appraiser Art: us Generic External Data Provider IMG XR PROCEDURES Final Result documented in this encounter Visit Diagnoses Not on filedocumented in this encounter Additional Health Concerns Assessment Noted Time PHQ-9 Depression Total Score: 3 01/17/20 24 10:08 AM EDT documented as of this encounter Care Teams Assembler Dielectric Heater Relationship Specialty Start Date End Date Ty Amin MD PCP - General Family Medicine 09/20/23 Mckayla Blas NP [address] [place] [address] PCP - [facility] 09/07/23 01/11/25 Mckayla Blas NP Nurse Practitioner Family Medicine 09/20/23 documented as of this encounter
--- OUTSIDE RECORDS SUMMARY | 2025-04-06 10:45 | XMS_ITS | Encounter Summary ---
Author Organization [facility] Address [address] [place] [address] Care Team Providers Care Boiler Coverer Name Role Phone Ty Amin MD Primary Care Provider [phone] Mckayla Blas FINISHER PLATE Unavailable [phone] Mckayla Blas NP Unavailable [phone] Encounter Details Date Type Department Care Team (Late st Contact Info) Description 04/14/2024 Orders Only [facility] [address] [place] [address] Mckayla Blas NP [address] [facility] [place] [address] Social History Tobacco Use Types Packs/Day Years [...] 1 01/17/2024 [facility] - Occupational Stress Questionnaire Answer [...] Visit [facility] [address] [place] [address] Rain Souza MD [address] [place] [address] documented as of this encounter Procedures Procedure Name Priority Date/Time Associated Diagnosis Comments XR ANKLE 3+ VIEWS RIGHT Routine 04/14/2024 2:57 PM EDT XR ANKLE 3+ VIEWS RIGHT Routine 04/14/2024 11:20 AM EDT documented in this encounter Results * XR ankle 3+ views right (04/14/2024 2:57 PM EDT) Anatomical Region Laterality Modality Lower Extremities, Ankle Right Radiogr aphic Imaging us Mckayla Blas FINISHER PLATE IMG XR PROCEDURES Final Result * XR ankle 3+ views right (04/14/2024 11:20 AM EDT) Anatomical Region Laterality Modality Lower Extremities, Ankle Right Radiogr aphic Imaging us Mckayla Blas FINISHER PLATE IMG XR PROCEDURES Final Result documented in this encounter Visit Diagnoses Not on filedocumented in this encounter Additional Health Concerns Assessment Noted Time PHQ-9 Depression Total Score: 3 01/17/20 10:08 AM EDT documented as of this encounter Care Teams Boiler Coverer Relationship Specialty Start Date End Date Ty Amin MD PCP - General Family Medicine 09/20/23 Mckayla Blas NP [address] [place] [address] PCP - [facility] 09/07/23 01/11/25 Mckayla Blas NP Nurse Practitioner Family Medicine 09/20/23 documented as of this encounter
--- OUTSIDE RECORDS SUMMARY | 2025-04-06 10:45 | XMS_ITS | Encounter Summary ---
Author Organization [facility] Address [address] [place] [address] Care Team Providers Care Trauma Program Manager Name Role Phone Ty Amin MD Primary Care Provider [phone] Mckayla Blas SUPERVISOR BOTTLE MACHINES Unavailable [phone] Mckayla Blas SUPERVISOR BOTTLE MACHINES Unavailable [phone] Reason for Visit * Reason Comments Med Refill Encounter Details Date Type Department Care Team (Late st Contact Info) Description 11/27/2023 Refill [facility] [address] [place] [address] Mckayla Blas NP [address] [facility] [place] [address] Chronic obstructive pulmonary disease, unspecified (HCC) Social [...] do you attend chur or anabaptism services? 1 to 4 times [...] Patient Health Questionnaire-2 Score 0 11/01/2023 [facility] Occupat ional [...] [facility] [address] [place] [address] Rain Souza MD [address] [place] [address] documented as of this encounter Visit Diagnoses Diagnosis Chronic obstructive pulmonary disease, unspecified (HCC) documented in this encounter Care Teams Trauma Program Manager Relationship Specialty Start Date End Date Ty Amin MD PCP - General Family Medicine 09/20/23 Mckayla Blas NP [address] [place] [address] PCP - [facility] 09/07/23 01/11/25 Mckayla Blas NP Nurse Practitioner Family Medicine 09/20/23 documented as of this encounter
--- OUTSIDE RECORDS SUMMARY | 2025-04-06 10:45 | XMS_ITS | Encounter Summary ---
Author Organization [facility] Address [address] [facility] [place] [address] Care Team Providers Care Broker Name Role Phone Ty Amin MD Primary Care Provider [phone] Mckayla Blas MANAGER FORMS Unavailable [phone] Mckayla Blas NP Unavailable [phone] Encounter Details Date Type Department Care Team (Late st Contact Info) Description 12/17/2023 Orders Only [facility] [address] [place] [address] Mckayla Blas NP [address] [place] [address] Social History Tobacco Use Types Packs/Day Years [...] you attend chur ch or druze services? 1 to 4 times [...] [facility] [address] [place] [address] Rain Souza MD [address] [place] [address] documented as of this encounter Procedures Procedure Name Priority Date/Time Associated Diagnosis Comments MM SCREENING MAMM WITH 3D SERENA - US AND ADDITIONAL Routine 12/14/2023 8:34 AM EDT documented in this encounter Results * MM SCREENING MAMM WITH 3D SERENA - US AND ADDITIONAL (12/14/2023 8:34 AM EDT) Anatomical Region Laterality Modality Radiographic Kalani ging us Mckyala Blas NP IMG XR PROCEDURES Final Result documented in this encounter Visit Diagnoses Not on filedocumented in this encounter Care Teams Broker Relationship Specialty Start Date End Date Naderer, Ty, MD PCP - General Family Medicine 09/20/23 Mckayla Blas NP [address] [place] [address] PCP - [facility] 09/07/23 01/11/25 Mckayla Blas NP Nurse Practitioner Family Medicine 09/20/23 documented as of this encounter
--- OUTSIDE RECORDS SUMMARY | 2025-04-06 10:45 | XMS_ITS | Encounter Summary ---
Author Organization [facility] Address [address] [place] [address] Care Team Providers Care Administrative Services Assistant Name Role Phone Ty Amin MD Primary Care Provider [phone] Mckayla Blas HEAD OF HISTORY Unavailable [phone] Mckayla Blas NP Unavailable [phone] Encounter Details Date Type Department Care Team (Late st Contact Info) Description 12/14/2023 Clinisync Result Encounter [facility] External Department Unsolicited Mckayla Blas NP [address] [place] [address] Social History Tobacco Use Types Packs/Day Years [...] 11/01/2023 [facility] Occupat ional [facility] - Occupational Stress Questionnaire Answer [...] [facility] [address] [place] [address] Rain Souza MD [address] [place] [address] documented as of this encounter Procedures Procedure Name Priority Date/Time Associated Diagnosis Comments MM TOMOSYNTHESIS SCREENING BI 12/14/2023 11:21 AM EDT documented in this encounter Results * MM TOMOSYNTHESIS SCREENING BI (12/14/2023 11:21 AM EDT) Anatomical Region Laterality Modality Other 12/14/2023 11:2 1 AM EDT Narrative 12/14/2023 11:22 AM EDT The [address] [address] Mammography Report Signed Patient: MITZI MACIAS MR#: [id number] : 1970 Acct:[id number] Age/Sex: 53 / F ADM Date: 12/13/23 Loc: MAMMO Attending Dr: Mckayla Blas NP Ordering Physician: Mckayla Blas NP Results: Date of Service: 12/13/23 Follow Up: Procedure(s): MM tomosynthesis screening BI Accession Number(s): [id number] cc: Mckayla Blas NP Patient Name: MITZI MACIAS MR#: [id number] : 1970 Exam Date: 12/13/2023 Ordering Doctor: [...] Signed By: 12/14/23 1122 DD/ 1121 TD/TT: Jumbo Operator: Procedure Note Radiology, Radiologist, MD - 12/14/2023 [place] [address] Mammography Report Signed Patient: MITZI MACIAS LMR#: [id number] : 1970Acct:[id number] Age/Sex: 53 / FADM Date: 12/13/23 Loc: MAMMO Attending Dr: Mckayla Blas HEAD OF HISTORY Ordering Physician: Mckayla Blas NPResults: Date of Service: 12/13/23Follow Up: Procedure(s): MM tomosynthesis screening BI Accession Number(s): [id number] cc: Mckayla Blas NP Patient Name: MITZI MACIAS MR#: [id number] : 1970 Exam Date: 12/13/2023 Ordering Doctor: SAYDA Blas MARINE SURVEYOR RADIOLOGY REPORT PROCEDURE: MM TOMOSYNTHESIS SCREENING BI [...] M.D. Signed By:12/14/23 1122 DD/ 1121 TD/TT: Jumbo Operator: us Mckayla Blas NP [facility] Final Result documented in this encounter Visit Diagnoses Not on filedocumented in this encounter Care Teams Administrative Services Assistant Relationship Specialty Start Date End Date Ty Amin MD PCP - General Family Medicine 09/20/23 Mckayla Blas NP [address] [place] [address] PCP - [facility] 09/07/23 01/11/25 Mckayla Blas NP Nurse Practitioner Family Medicine 09/20/23 documented as of this encounter
--- OUTSIDE RECORDS SUMMARY | 2025-04-06 10:45 | XMS_ITS | Clinical Summary ---
Author Organization [facility] Address [address] [place] [address] Care Team Providers Care Profiler Hand Name Role Phone Ty Amin MD Primary Care Provider [phone] Mckayla Blas NP Unavailable [phone] Allergies No known active allergies Medications [...] if needed for wheezing Active HYDROcodone-aceta minophen ([place]) 5-325 MG tablet 1 tablet as needed [...] 025 Active ergocalciferol (Vitamin D2) 1.25 MG (64119 UT) capsuleIndication s:Vitamin D deficiency, unspecified Take [...] long-term current use of insulin ([facility]) Inject 58 Units under the skin in the morning and 58 Units before bedtime. 104.4 mL 1 025 2025 Active insulin glargine (Lantus SoloStar) 100 UNIT/ML penIndications:Ty pe 2 diabetes mellitus with hyperglycemia, with long-term current use of insulin ([facility]) INJECT 58 UNITS SUBCUTANEOUSLY TWICE A DAY 105 mL 2 025 Active Tirzepatide (Mounjaro) 15 MG/0.5ML solution auto-injectorIndi cations:Type 2 diabetes mellitus with other circulatory complications ([facility]) Inject 15 mg under the skin 1 [...] wrapped, 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 as possible snf current use of inhaled steroid 025 Non-pressure [...] to see if helps Encounter for subsequent [facility] wellness visit (AWV) in Medicare patient [...] can try ubrelvy #3 samples given: Lot [id number], exp 03/2025 Mixed incontinence 11/14/2023 Arthritis 11/14/2023 [...] necessary they take over prescribing Pancreatitis ([facility]) 09/17/2023 COPD exacerbation 09/17/2023 Assessment [...] AM EDT): Open wounds refer to [facility] Pulmonary hypertension 09/17/2023 Assessment & Plan (01/26/2025 7:52 AM EDT): Has seen [facility] Cardiology Assessment & Plan (12/09/2024 7:23 AM EDT): Has seen [facility] Cardiology Assessment & Plan (11/15/2023 3:49 PM EDT): Saw [facility] Cardiology See notes Going to see Pulmonary Assessment & Plan (09/27/2023 1:03 PM EDT): Needs to wear her PAP I am also going to have her see [facility] Cardiology as well PAD (peripheral [...] spiriva Will trial breztri: #2 samples given [id number], exp 03/03, rinse mouth after use Give [...] PM EDT): Current meds: albuterol, duoneb, 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 in [place], they will get another fill on this [...] Care Team Description 03/09/2025 Refill [facility] [address] [place] [address] Mckayla Blas NP Tobacco user; Encounter for smoking cessation counseling 02/27/2025 Refill [facility] [address] [place] [address] Amber Pinzon LPN Type 2 diabetes mellitus with other circulatory complications (HCC) 02/26/2025 Refill [facility] [address] [place] [address] Rain Odonnell MD Type 2 diabetes mellitus with other circulatory complications (HCC) 02/18/2025 Abstract [facility] [address] [place] [address] Mckayla Blas NP 02/14/2025 Refill [facility] [address] [place] [address] Rain Odonnell MD Type 2 diabetes mellitus with hyperglycemia, with long-term current use of insulin ([facility]) 01/29/2025 9:40 AM EDT Office Visit [facility] [address] [place] [address] Rain Odonnell MD Encounter for dietary consultation (Primary Dx); Type 2 diabetes mellitus with hyperglycemia, with long-term current use of insulin ([facility]); Vitamin D deficiency; Primary hypertension ; Insulin long-term use ([facility]); Hyperlipemia, mixed ; Microalbuminuria; Class 3 severe obesity due to excess calories with serious comorbidity and body mass index (BMI) of 50.0 to 59.9 in adult ([facility]) 01/29/2025 Clinisync Result Encounter [facility] External Department Unsolicited Provider, Generic External Data 01/29/2025 Bamboo flowsheet [facility] [address] [place] [address] Rain Odonnell MD 01/26/2025 6:00 PM EDT Office Visit [facility] [address] [place] [address] Mckayla Blas NP Encounter for subsequent annual wellness visit (AWV) in Medicare patient (Primary Dx); Mixed hyperlipidemia ; Type 2 diabetes mellitus with complication, with long-term current use of insulin (HCC); Bilateral lower extremity edema; Gastro-esophageal reflux disease without esophagitis; Chronic diastolic heart failure ([facility]); Primary hypertension ; Pulmonary hypertension ([facility]); Diabetic polyneuropathy associated with type 2 diabetes mellitus (HCC); Pulmonary emphysema, unspecified emphysema type (HCC); Moderate persistent asthma without complication ([facility]); Insomnia; Non-seasonal allergic rhinitis, unspecified trigger; Type 2 diabetes mellitus with unspecified complications ([facility]); Anxiety and depression ; Antibiotic-induced yeast infection; Chronic obstructive pulmonary disease, unspecified (HCC); Hyperlipidemia, unspecified ; Vaginal yeast infection; Morbid (severe) obesity due to excess calories ([facility]) 01/26/2025 Bamboo flowsheet [facility] [address] [place] [address] Mckayla Blas NP 01/19/2025 Travel 01/16/2025 Refill [facility] [address] [place] [address] Amber Pinzon LPN Vitamin D deficiency, unspecified 01/07/2025 Abstract [facility] [address] [facility] [place] [address] Mckayla Blas NP 01/07/2025 Abstract [facility] [address] [facility] [place] [address] Mckayla Blas NP from Last 3 Months Immunizations Immunization Administration Dates Next Due Influenza Whole 05/02/2013 Influenza, [id number] 04/16/2017,05/10/2016 Influenza, Unspecified 05/18/2023,04/16/2017,08/2015 Influenza, injectable, quadrivalent [...] week 08/26/2024 How often do you attend [facility] or episc[facility] services? More than 4 times [...] Recorded Patient Health Questionnaire-2 Score 0 01/26/2025 [facility] [place] [facility] - Occupational Stress [...] [facility] [address] [place] [address] Rain Odonnell MD [address] [place] [address] Health Maintenance Due Date Last Done Comments [...] EDT Narrative 01/29/2025 6:40 [place] [address] Cardiology Report Signed Patient: SINA MACIAS MR#: [id number] : 1970 Acct:[id number] Age/Sex: 54 / F ADM Date: 01/29/25 Loc: CARD Attending Dr: AMI ORO APRN Ordering Physician: AMI ORO APRN Date of Service: 01/29/25 Procedure(s): CA echo doppler complete Accession Number(s): [id number] cc: Mckayla Blas BAR STAFF; AMI ORO APRN Patient Name: SINA MACIAS MR#: [id number] : 1970 Exam Date: 01/29/2025 Ordering Doctor: [...] HERRERA Signed By: 01/29/251839 DD/ 39 TD/TT: Durability Engineer: Procedure Note Radiology, Radiologist, MD - 01/29/2025 [place] [address] Cardiology Report Signed Patient: SINA MACIAS LMR#: [id number] : 1970Acct:[id number] Age/Sex: 54 / FADM Date: 01/29/25 Loc: CARD Attending Dr: AMI ORO APRN Ordering Physician: AMI ORO APRN Date of Service: 01/29/25 Procedure(s): CA echo doppler complete Accession Number(s): [id number] cc: Mckayla Blas BAR STAFF; AMI ORO APRN Patient Name: SINA MACIAS MR#: [id number] : 1970 Exam Date: 01/29/2025 Ordering Doctor: AIM ORO BUSINESS DEVELOPMENT PROFESSIONAL ECHOCARDIOGRAM REPORT PROCEDURE: CA ECHO DOPPLER COMPLETE [...] BHARAT HERRERA Signed By:01/29/251839 DD/ 39 TD/TT: Durability Engineer: Generic External Data Provider [facility] Final [...] EDT Narrative 12/14/2023 11:22 [place] [address] Mammography Report Signed Patient: SINA MACIAS MR#: [id number] : 1970 Acct:[id number] Age/Sex: 53 / F ADM Date: 12/13/23 Loc: MAMMO Attending Dr: Mckayla Blas NP Ordering Physician: Mckayla Blas NP Results: Date of Service: 12/13/23 Follow Up: Procedure(s): MM tomosynthesis screening BI Accession Number(s): [id number] cc: Mckayla Blas NP Patient Name: SINA MACIAS MR#: [id number] : 1970 Exam Date: 12/13/2023 Ordering Doctor: SAYDA Blas BUSINESS DEVELOPMENT PROFESSIONAL RADIOLOGY REPORT PROCEDURE: MM TOMOSYNTHESIS SCREENING BI [...] unknown cancer at age 75. LOCATION: [facility] BREAST COMPOSITION: The breasts are [...] Signed By: 12/14/23 1122 DD/ 1121 TD/TT: Durability Engineer: Procedure Note Radiology, Radiologist, MD - 12/14/2023 [place] [address] Mammography Report Signed Patient: SINA MACIAS LMR#: [id number] : 1970Acct:[id number] Age/Sex: 53 / FADM Date: 12/13/23 Loc: MAMMO Attending Dr: Mckayla Blas BAR STAFF Ordering Physician: Mckayla Blas NPResults: Date of Service: 06/06/24Follow Up: Procedure(s): MM tomosynthesis screening BI Accession Number(s): [id number] cc: Mckayla Blas NP Patient Name: SINA MACIAS MR#: [id number] : 1970 Exam Date: 12/13/2023 Ordering Doctor: [...] unknown cancer at age 75. LOCATION: [facility] BREAST COMPOSITION: The breasts are [...] M.D. Signed By:12/14/23 1122 DD/ 1121 TD/TT: Durability Engineer: Mckayla Blas NP [facility] Final Result from Last 3 Months or Most Recently Relevant to Health Maintenance Insurance [employer] MEDICARE Care Teams Profiler Hand Relationship Specialty Start Date End Date Ty Amin MD PCP - General Family Medicine 09/20/23 Mckayla Blas NP Nurse Practitioner Family Medicine 09/20/23
--- OUTSIDE RECORDS SUMMARY | 2025-04-06 10:45 | XMS_ITS | Clinical Summary ---
Author Organization [employer] [facility] Address [id number] [address] [place] [address] Care Team Providers Care Corn Husker 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 Name Role Phone Wan Mckayla Krystal PEREZN-CELL TECHNICIAN Primary Care Provider Allergies No known active [...] Medical Devices Not on file Insurance MEDICAID [place] [employer] MEDICARE Care Teams Corn Husker 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 Relationship Specialty Start Date End Date Mckayla Blas, LOW PRESSURE BOILER TENDER-CELL TECHNICIAN [address] [place] [address] PCP - General Nurse Practitioner 09/25/18
--- OUTSIDE RECORDS SUMMARY | 2025-04-06 10:45 | XMS_ITS | Encounter Summary ---
Author Organization [facility] Address [address] [place] [address] Care Team Providers Care Land Acquisition Manager Name Role Phone Ty Amin MD Primary Care Provider [phone] Mckayla Blas MORGUE LIBRARIAN Unavailable [phone] Mckayla Blas NP Unavailable [phone] Encounter Details Date Type Department Care Team (Late st Contact Info) Description 01/07/2025 Abstract [facility] [address] [place] [address] Mckayla Blas NP [address] [facility] [place] [address] Social History Tobacco Use Types Packs/Day Years [...] Questionnaire-2 Score 1 01/17/2024 [facility] - Occupational [...] [facility] [address] [place] [address] Rain Souza MD [address] [place] [address] documented as of this encounter Visit Diagnoses Not on filedocumented in this encounter Additional Health Concerns Assessment Noted Time PHQ-9 Depression Total Score: 3 01/17/20 24 10:08 AM EDT documented as of this encounter Care Teams Land Acquisition Manager Relationship Specialty Start Date End Date Ty Amin MD PCP - General Family Medicine 09/20/23 Mckayla Blas NP [address] [place] [address] PCP - [facility] 09/07/23 01/11/25 Mckayla Blas NP Nurse Practitioner Family Medicine 09/20/23 documented as of this encounter
--- OUTSIDE RECORDS SUMMARY | 2025-04-06 10:45 | XMS_ITS | Encounter Summary ---
Author Organization [facility] Address [address] [place] [address] Care Team Providers Care Apprentice/Lineman Name Role Phone Ty Amin MD Primary Care Provider [phone] Ty Amin MD Primary Care Provider [phone] Mckayla Blas CORPORATE GENERAL MANAGER Unavailable [phone] Mckayla Blas CORPORATE GENERAL MANAGER Unavailable [phone] Encounter Details Date Type Department Care Team (Late st Contact Info) Description 07/08/2023 Abstract [facility] [address] [place] [address] Mckayla Blas NP [address] [place] [address] Social History Tobacco Use Types Packs/Day Years [...] Recorded Patient Health Questionnaire-2 Score 2 07/10/2023 [facility] - [...] [facility] [address] [place] [address] Rain Souza MD [address] [place] [address] documented as of this encounter Visit Diagnoses Not on filedocumented in this encounter Care Teams Apprentice/Lineman Relationship Specialty Start Date End Date Ty Amin MD PCP - General Family Medicine 01/05/23 09/19/23 Ty Amin MD PCP - General Family Medicine 09/20/23 Mckayla Blas NP [address] [facility] [place] [address] PCP - [facility] 09/07/23 01/11/25 Mckayla Blas NP Nurse Practitioner Family Medicine 09/20/23 documented as of this encounter
== END 2025-04-06 10:43 | disposition home or self-care (01) ==
LOC: WC 10:42
PROVIDERS: PCP Nurse Practitioner; Visit Provider Physician Assistant
DX: I87.311 Chronic venous hypertension (idiopathic) with ulcer of right lower extremity (principal); L97.812 Non-pressure chronic ulcer of other part of right lower leg with fat layer exposed
CPT/HCPCS: 29581

== ENCOUNTER 2025-04-09 11:23 | Outpatient (OUT) | payer MEDICARE, SELFPAY ==
--- OUTSIDE RECORDS SUMMARY | 2025-04-09 18:26 | XMS_ITS | CCD ---
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 Name Role Phone James Benavidez Primary Care Provider [phone] JAMES BENAVIDEZ Primary Care Unavailable SHENDGE, VITHAL Admitting Unavailable SHENDGE, VITHAL Attending Unavailable AICHHOLZ, MCKAYLA Primary Care Unavailable AICHHOLZ, MCKAYLA Referring Unavailable AICHHOLZ, MCKAYLA J Primary Care Physician [phone] Tico, Stephanie Unavailable OLE RAMIREZ Attending Unavailable OLE RAMIREZ Consulting Unavailable AICHHOLZ, GOVERNMENT SERVICES PROFESSIONAL MCKAYLA Primary Care Unavailable OLE RAMIREZ Admitting Unavailable ANTONY SHRESTHA Consulting Unavailable ALONDRA ., UMBERTO Admitting Unavailable ALONDRA ., UMBERTO Attending Unavailable AICHHOLZ, GOVERNMENT SERVICES PROFESSIONAL MCKAYLA Primary Care Unavailable AFSANEH Loera, DR BOLANOS Consulting Unavailable MARYANNE POWER Consulting Unavailable GLENN KERR Consulting Unavailable YOMAIRA KERR Consulting Unavailable HATTIE GOFF Consulting Unavailable ALONDRA ., UMBERTO Consulting Unavailable TICO, STEPHANIE Attending Unavailable TICO, STEPHANIE Consulting Unavailable AICHHOLZ, GOVERNMENT SERVICES PROFESSIONAL MCKAYLA Primary Care Unavailable TICO, STEPHANIE Admitting Unavailable REGLA ., DR DUMONT Admitting Unavailable AICHHOLZ, GOVERNMENT SERVICES PROFESSIONAL MCKAYLA Primary Care Unavailable REGLA ., DR DUMONT Attending Unavailable ARAUZ ., DR DUMONT Consulting Unavailable COLLIN HUERTAS Consulting Unavailable CECILIA KAUFMAN Admitting Unavailable CECILIA KAUFMAN Attending Unavailable AICHHOLZ, GOVERNMENT SERVICES PROFESSIONAL MCKAYLA Primary Care Unavailable RAFAEL GONGORA Attending Unavailable RAFAEL GONGORA Admitting Unavailable AICHHOLZ, GOVERNMENT SERVICES PROFESSIONAL MCKAYLA Primary Care Unavailable AICHHOLZ, GOVERNMENT SERVICES PROFESSIONAL MCKAYLA Admitting Unavailable AICHHOLZ, GOVERNMENT SERVICES PROFESSIONAL MCKAYLA Primary Care Unavailable AICHHOLZ, GOVERNMENT SERVICES PROFESSIONAL MCKAYLA Attending Unavailable AICHHOLZ, GOVERNMENT SERVICES PROFESSIONAL MCKAYLA Consulting Unavailable LAKSHMIPATHY ., NARENDRANATH Attending Anette vailable LAKSHMIPATHY ., NARENDRANATH Consulting Anette vailable LAKSHMIPATHY ., NARENDRANATH Admitting Anette vailable AICHHOLZ, GOVERNMENT SERVICES PROFESSIONAL MCKAYLA Primary Care Unavailable VALENZUELA ., GIL Consulting Unavailable MORTENSEN ., DR CHAPARRO Aguillon Attending Unavailable MORTENSEN ., DR CHAPARRO Aguillon Admitting Unavailable AICHHOLZ, GOVERNMENT SERVICES PROFESSIONAL MCKAYLA Primary Care Unavailable VALENZUELA ., GIL Consulting Unavailable MORTENSEN ., DR CHAPARRO Aguillon Admitting Unavailable AICHHOLZ, GOVERNMENT SERVICES PROFESSIONAL MCKAYLA Primary Care Unavailable MORTENSEN ., DR CHAPARRO Aguillon Attending Unavailable HALKER ., SUBHASH Consulting Unavailable LAKSHMIPATHY ., NARENDRANATH Admitting Anette vailable LAKSHMIPATHY ., NARENDRANATH Attending Anette vailable AICHHOLZ, GOVERNMENT SERVICES PROFESSIONAL MCKAYLA Primary Care Unavailable MORTENSEN ., DR CHAPARRO Aguillon Attending Unavailable MORTENSEN ., DR CHAPARRO Aguillon Admitting Unavailable VALENZUELA ., GIL Consulting Unavailable AICHHOLZ, GOVERNMENT SERVICES PROFESSIONAL MCKAYLA Primary Care Unavailable VALENZUELA ., GIL Consulting Unavailable MORTENSEN ., DR CHAPARRO Aguillon Attending Unavailable MORTENSEN ., DR CHAPARRO Aguillon Admitting Unavailable AICHHOLZ, GOVERNMENT SERVICES PROFESSIONAL MCKAYLA Primary Care Unavailable HATTIE BRODERICK Attending Unavailable HATTIE BRODERICK Admitting Unavailable AICHHOLZ, GOVERNMENT SERVICES PROFESSIONAL MCKAYLA Primary Care Unavailable AICHHOLZ, GOVERNMENT SERVICES PROFESSIONAL MCKAYLA Admitting Unavailable AICHHOLZ, GOVERNMENT SERVICES PROFESSIONAL MCKAYLA Consulting Unavailable AICHHOLZ, GOVERNMENT SERVICES PROFESSIONAL MCKAYLA Primary Care Unavailable AICHHOLZ, GOVERNMENT SERVICES PROFESSIONAL MCKAYLA Attending Unavailable AICHHOLZ, GOVERNMENT SERVICES PROFESSIONAL MCKAYLA Primary Care Unavailable MISC, DR LESLIE Admitting Unavailable MISC, DR LESLIE Attending Unavailable MISC, DR LESLIE Consulting Unavailable DIAB ., MARIANO Admitting Unavailable DIAB ., MARIANO Attending Unavailable DIAB ., MARIANO Consulting Unavailable AICHHOLZ, GOVERNMENT SERVICES PROFESSIONAL MCKAYLA Primary Care Unavailable RASTEGAR, RICCO Consulting Unavailable AICHHOLZ, GOVERNMENT SERVICES PROFESSIONAL MCKAYLA Admitting Unavailable AICHHOLZ, GOVERNMENT SERVICES PROFESSIONAL MCKAYLA Primary Care Unavailable AICHHOLZ, GOVERNMENT SERVICES PROFESSIONAL MCKAYLA Attending Unavailable AICHHOLZ, GOVERNMENT SERVICES PROFESSIONAL MCKAYLA Consulting Unavailable DR PATRICIA VELOZ Consulting Unavailable TAMLYN ., CECILIA Attending Unavailable TAMLYN ., CECILIA Admitting Unavailable DR PATRICIA VELOZ Consulting Unavailable AICHHOLZ, GOVERNMENT SERVICES PROFESSIONAL MCKAYLA Primary Care Unavailable TAMLYN ., CECILIA Consulting Unavailable MORTENSEN ., DR CHAPARRO Aguillon Attending Unavailable FESTUS ., DR CHAPARRO Aguillon Consulting Unavailable FESTUS ., DR CHAPARRO Aguillon Admitting Unavailable AICHHOLZ, GOVERNMENT SERVICES PROFESSIONAL MCKAYLA Primary Care Unavailable HATTIE BRODERICK Attending Unavailable HATTIE BRODERICK Consulting Unavailable HATTIE BRODERICK Admitting Unavailable AICHHOLZ, GOVERNMENT SERVICES PROFESSIONAL MCKAYLA Primary Care Unavailable HATTIE BAUTISTA Unavailable AICHHOLZ, GOVERNMENT SERVICES PROFESSIONAL MCKAYLA Admitting Unavailable AICHHOLZ, GOVERNMENT SERVICES PROFESSIONAL MCKAYLA Attending Unavailable AICHHOLZ, GOVERNMENT SERVICES PROFESSIONAL MCKAYLA Consulting Unavailable AICHHOLZ, GOVERNMENT SERVICES PROFESSIONAL MCKAYLA Primary Care Unavailable Brennan PHIPPS, Ty Primary Care Provider Brennan PHIPPS, Ty Primary Care Provider Aichholz WIRE CHARGER, Mckayla Unavailable Aichholz WIRE CHARGER, Mckayla Unavailable Elbert ARAUZ Attending Unavailable SARAH VEGA Attending Unavailable AICHHOLZ, MCKAYLA Attending Unavailable RAIN SOUZA F Attending Unavailable AICHHOLZ, MCKAYLA Attending Unavailable AICHHOLZ, MCKAYLA Attending Unavailable AICHHOLZ, MCKAYLA Attending Unavailable LIBBYRAIN GIANG F Attending Unavailable AICHHOLZ, MCKAYLA Attending Unavailable LIBBYRAIN GIANG F Attending Unavailable LIBBY, AHMAD F Referring Unavailable AICHHOLZ, MCKAYLA Attending Unavailable DAKOTAH BRIDGES Attending Unavailable AMI ORO Attending Unavailable Aichholz WIRE CHARGER, Mckayla Unavailable Adonay CHAU, Flynn Arzate Attending Unavailab le Bob BEAD TRIMMER-GOVERNMENT SERVICES PROFESSIONAL, Omero Lovell Attending Unav ailable Adonay CHAU, Flynn Arzate Referring Unavailab lloita Kelolgg MD, Corinne Ghosh Attending Unavail able Bob BEAD TRIMMER-GOVERNMENT SERVICES PROFESSIONAL, Omero Lovell Attending Unav ailable Adonay CHAU, Flynn Arzate Attending Unavailab le Bob BEAD TRIMMER-GOVERNMENT SERVICES PROFESSIONAL, Omero Lovell Attending Unav ailable Allergies Allergy Classification Reported Allergen(s) Allergy Type Date of Onset Reaction(s) Facility (1 source) No Known Medication Allergies; Translations: [No Known Medication Allergies] Propensity to adverse reactions (disorder) [facility] Repository Medications Current Medications Medication Drug [...] Start Date: 02/06/22 Status: Ordered HYDROcodone-acet aminophen ([place]) 5-325 MG tablet 1 tablet 3 (three) times a day as needed for severe pain. Active take 1 tablet by vandana twice daily as needed [place] 5-325 MG 1 tablet as needed Orally [...] every week ergocalciferol (Vitamin D2) 1.25 MG (42165 UT) capsule Indications: Vitamin D deficiency, unspecified Take 1 capsule (1.25 mg) by mouth 1 (one) time per week 12 capsule 1 01/16/2025 04/10/2025 Active Start: 10-27-2024 End: 01-19-2025 take 1 capsule by mouth two times weekly ergocalciferol (Vitamin D2) 1.25 MG (82075 UT) capsule Indications: Vitamin D deficiency, unspecified Take 1 capsule (1.25 mg) by mouth 2 (two) times a week 24 capsule 1 10/27/2024 01/19/2025 Active Start: 04-06-2024 End: 10-27-2024 take 1 capsule by mouth every week ergocalciferol (Vitamin D2) 1.25 MG (62646 UT) capsule Indications: Vitamin D deficiency, unspecified [...] 02-06-2022 Chronic Other aftercare (1 source) Other care home (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 therapy; Translations: [OTH 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 CURRENT DRUG THERAPY] Onset: 12-05-2022 Episodic Other aftercare (1 source) 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; Translations: [FCI CURRENT USE OF ASPIRIN] Onset: 12-05-2022 Episodic Other aftercare (6 sources) Long-term current use of insulin; Translations: [FDC (current) use of insulin] 05-27-2024 Episodic Other [...] inflammation of bilateral lower extremity; Translations: [CHRN KOE HTN ULCR INFLAM ALEX LW EXT] Onset: [...] (1 source) FCI INJECT NONINSULN ANTIDIAB; Translations: [FCI INJECT NONINSULN ANTIDIAB] Onset: 12-05-2022 Unclassified (3 [...] 08-27-2024 08-27-2024 Episodic Other aftercare (3 sources) 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; Translations: [INTERNET RETAILER CURRENT USE OF INSULIN] Onset: 12-05-2022 Episodic Other aftercare (20 sources) Long-term current use of inhaled steroid; Translations: [exterminator helper (current) use of inhaled steroids] Onset: 08-27-2024 [...] She has had testing done at the [facility] last year which she brought with [...] Bob REBOLLEDOOmero Nas 03/23/25 12:01 EDT Normal [facility] Podiatry Office/Clinic Noteo n 03-11-2025 Podiatry [...] wraps (gauze, tila bandage, Coban II, tuba queen's counsel), Dakins solution, a 40-day course of antibiotics, [...] other blood thinners. The patient resides in [place]. Review of Systems Constitutional: Negative for signs [...] on above: Order Comment: Destiny ocampo Attachment [id number] Can be viewed in source system XR [...] [facility] Orders Onlyon 01-30-2025 Orders Only [id number] Mitzi Macias 1970 F Date Provider Department Center 01/30/2025 [id number], HISTORICAL [facility] Family History Problem Relation Age of Onset Heart attack Paternal Grandmother Family Status - Relation Status Age at Mother Father Paternal Grandmother Normal [facility] CA ECHO DOPPLER COMPLETEon 0 01-29-2025 [place] [id number] Cardiology Report Signed Patient: MITZI MACIAS MR#: [id number] : 1970 Acct:[id number] Age/Sex: 54 / F ADM Date: 01/29/25 Loc: CARD Attending Dr: AMI ORO APRN Ordering Physician: AMI ORO APRN Date of Service: 01/29/25 Procedure(s): CA echo doppler complete Accession Number(s): [id number] cc: Mckayla Blas WIRE CHARGER; AMI ORO APRN Patient Name: MITZI MACIAS MR#: [id number] : 1970 Exam Date: 01/29/2025 Ordering Doctor: AMI ORO [facility] ECHOCARDIOGRAM REPORT PROCEDURE: CA ECHO DOPPLER [...] HERRERA Signed By: 01/29/251839 DD/ 39 TD/TT: Bottling Line Operator: [facility] Radiology, Radiologist, MD - 01/29/2025 [place] [address] Cardiology Report Signed Patient: MITZI MACIAS MR#: [id number] : 1970 Acct:[id number] Age/Sex: 54 / F ADM Date: 01/29/25 Loc: CARD Attending Dr: AMI ORO APRN Ordering Physician: AMI ORO APRN Date of Service: 01/29/25 Procedure(s): CA echo doppler complete Accession Number(s): [id number] cc: Mckayla Blas WIRE CHARGER; AMI ORO APRN Patient Name: MITZI MACIAS MR#: [id number] : 1970 Exam Date: 01/29/2025 Ordering Doctor: [...] HERRERA Signed By: 01/29/251839 DD/ 39 TD/TT: Bottling Line Operator: [facility] Radiology Study observation (narrative) [facility] CA ECHO DOPPLER COMPLETEOrde red By: Radiologist Radiology on 01-29-2025 [facility] Work Phone: Glucose (Bld) [Mass/Vol]on 0 01-29-2025 Glucose Blood, POC 121 mg/dL [facility] Laboratory - Hematology and Cell countson 01-29-2025 HbA1c (Bld) [Mass fraction] 8.4 % [facility] No Panel Informationon 01-29 Interpretation and review of laboratory results Abnormal [facility] Office Visiton 01-06-2025 Follow-up visit [id number] Mitzi Macias 1970 F Date Provider Department Center 01/06/2025 Mikaela-AMI ORO CARD [facility] Family History Problem Relation Age of Onset Heart attack Paternal Grandmother Family Status - Relation Status Age at Mother Father Paternal Grandmother Level of Service:57380 HI OFFICE/OUTPATIENT ESTABLISHED MOD [facility] 30 MIN Reason for Visit and Comments: Congestive Heart Failure [127] Hypertension [627939] Hyperlipidemia [182] Normal [facility] 36on 10-21-2024 36 Regarding lab results from 10/08/2024: MD Mickie Merritt MA Lipids, ALT AST, and BMP are normal. HbA1c was not performed. Continue current management. LM on patient's VM. Normal [facility] Glucose (Bld) [Mass/Vol]Orde red By: Mica Sauceda on 10-08-2024 Glucose Blood, POC 97 mg/dL [facility] Laboratory - Hematology and Cell countson 10-08-2024 HbA1c (Bld) [Mass fraction] 7.4 % [facility] No Panel InformationOrdered By: Mica Sauceda on 10-08-2024 [facility] UA (CLEAN/CATCH) MICROSC OPIC IF INDICATEon 10-08-2024 BILIRUBIN URINE Negative NEGATIVE [facility] BLOOD URINE Negative NEGATIVE [facility] Clarity (U) CLEAR CLEAR [facility] Color (U) YELLOW YELLOW [facility] GLUCOSE URINE UA Negative NEGATIVE mg/dL [facility] Interpretation and review of laboratory results Abnormal [facility] Ketones Ql (U) Negative NEGATIVE mg/dL [facility] Leukocyte esterase Test strip Ql (U) Negative NEGATIVE [facility] NITRITE URINE Negative NEGATIVE [facility] pH (U) 5.5 [pH] 5.0 - 9.0 [facility] Protein (U) [Mass/Vol] 30 mg/dL Abnormal NEG/TRACE NO [facility] SPECIFIC GRAVITY URINE >=1.030 Abnormal 1.005 - 1.025 [facility] URINE MICROSCOPIC INDICATED YES [facility] UROBILINOGEN URINE 1.0 EU/dL 0.2 - 1.0 EU/dL [facility] ALL CBC WITH AUTO DIFFon BASOPHILS ABSOLUTE AUTO 0.1 [facility] Basophils/100 WBC (Bld) 0.5 % 0.2 - 2.0 % [facility] Eosinophils/100 WBC (Bld) 1.9 % 0.9 - 7.0 % [facility] Erythrocyte distribution width (RBC) [Ratio] 14.6 % 11.0 - 15.0 % [facility] Hematocrit (Bld) [Volume fraction] 50.9 % High 36.0 - 48.0 % [facility] Hemoglobin (Bld) [Mass/Vol] 16.1 g/dL High 12.0 - 16.0 g/dL [facility] IMMATURE GRANULOCYTES ABS AUTO 0.04 High [facility] Immature granulocytes/100 WBC (Bld) 0.3 % 0.0 - 0.5 % [facility] Interpretation and review of laboratory results Abnormal [facility] LYMPHOCYTES ABSOLUTE AUTO 3.2 [facility] Lymphocytes/100 WBC (Bld) 25.1 % 20.5 - 60.0 % [facility] MCH (RBC) [Entitic mass] 29.2 pg 26.7 - 34.0 pg [facility] MCHC (RBC) [Mass/Vol] 31.6 g/dL 29.9 - 35.2 g/dL [facility] MCV (RBC) [Entitic vol] 92.2 fL 81.0 - 99.0 fL [facility] MONOCYTES ABSOLUTE AUTO 0.7 [facility] Monocytes/100 WBC (Bld) 5.2 % 1.7 - 12.0 % [facility] NEUTROPHILS ABSOLUTE AUTO 8.6 High [facility] Neutrophils/100 WBC (Bld) 67 % 43.0 - 75.0 % [facility] Platelet mean volume (Bld) [Entitic vol] 12.8 fL 9.5 - 13.5 fL [facility] EO # 0.2 [facility] TB PLT 122 Low [facility] RBC 5.52 High [facility] WBC 12.8 High [facility] Office Visiton 08-08-2024 Follow-up visit [id number] Mitzi Macias Gilberto 1970 F Date Provider Department Center 08/08/2024 [id number] BRIDGES CARD [facility] Family History Problem Relation Age of Onset Heart attack Paternal Grandmother Family Status - Relation Status Age at Paternal Grandmother Level of Service:34908 HI OFFICE/OUTPATIENT ESTABLISHED MOD MDM 30 MIN Reason for Visit and Comments: Congestive Heart Failure [127] - Denies chest pain, SOB, and palpitations. Hypertension [841882] Hyperlipidemia [182] LVH [Other] Edema [[id number]] - Denies worsening edema. She sees wound care for RLE ulcer. She was seeing the vein specialists here in town but they are moving to [place] in a few weeks. Normal [facility] Glucose (Bld) [Mass/Vol]Orde red By: Mica Sauceda on 05-27-2024 Glucose Blood, POC 158 mg/dL [facility] Laboratory - Hematology and Cell countson 05-27-2024 HbA1c (Bld) [Mass fraction] 9.2 % [facility] No Panel InformationOrdered By: Mica Sauceda on 05-27-2024 [facility] CREATININEon 05-12-2024 Creatinine [Mass/Vol] 0.92 mg/dL 0.55 - 1.02 mg/dL [facility] GFR/1.73 sq M.predicted CKD-EPI (S/P/Bld) [Vol rate/Area] >60 >=60 mL/min/1.73m 2 [facility] EGFR-NON AF BELARUSIAN >60 >=60 mL/min/1.73m 2 [facility] CBC AUTO DIFFon 12-06-2022 BASO # 0.0 103/ul Normal 0.0-0.1 [facility] Comment on above: Performed By: #### C BC #### [facility] [address] [address] [address] Ashlie Hills Basophils/100 WBC (Bld) 0.1 % Critically low 0.2-2.0 [facility] Comment on above: Performed By: #### C BC #### [facility] [address] [address] [address] Ashlie Hills EO # 0.0 103/ul Normal 0.0-0.7 [facility] Comment on above: Performed By: #### C BC #### [facility] [address] [address] [address] Ashlie Hills Eosinophils/100 WBC (Bld) 0.0 % Critically low 0.9-7.0 [facility] Comment on above: Performed By: #### C BC #### [facility] [address] [address] [address] Ashlie Hills Erythrocyte distribution width (RBC) [Ratio] 14.9 % Normal 11.0-15.0 [facility] Comment on above: Performed By: #### C BC #### [facility] [address] [address] [address] Ashlie Hills Hematocrit (Bld) [Volume fraction] 46.2 % Normal 36.0-48.0 [facility] Comment on above: Performed By: #### C BC #### [facility] [address] [address] [address] Ashlie Hills Hemoglobin (Bld) [Mass/Vol] 14.7 g/dL Normal 12.0-16.0 [facility] Comment on above: Performed By: #### C BC #### [facility] [address] [address] [address] Ashlie Hills IG # 0.06 10e3/ul Critically high 0.00-0.03 [facility] Comment on above: Performed By: #### C BC #### [facility] [address] [place] [address] Dr. Ashlie Hills IG % 0.4 % Normal 0.0-0.5 [facility] Comment on above: Performed By: #### C BC #### [facility] [address] [place] [address] Dr. Ashlie Hills LYMPH # 1.3 103/ul Normal 1.2-3.8 [facility] Comment on above: Performed By: #### C BC #### [facility] [address] [place] [address] Dr. Ashlie Hills Lymphocytes/100 WBC (Bld) 9.4 % Critically low 20.5-60.0 [facility] Comment on above: Performed By: #### C BC #### [facility] [address] [place] [address] Dr. Ashlie Hills MANUAL DIFF REQ NO Normal [facility] Comment on above: Performed By: #### C BC #### [facility] [address] [place] [address] Dr. Ashlie Hills MCH (RBC) [Entitic mass] 28.4 pg Normal 26.7-34.0 [facility] Comment on above: Performed By: #### C BC #### [facility] [address] [place] [address] Dr. Ashlie Hills MCHC (RBC) [Mass/Vol] 31.8 g/dL Normal 29.9-35.2 [facility] Comment on above: Performed By: #### C BC #### [facility] [address] [place] [address] Dr. Ashlie Hills MCV (RBC) [Entitic vol] 89.4 fL Normal 81.0-99.0 [facility] Comment on above: Performed By: #### C BC #### [facility] [address] [place] [address] Dr. Ashlie Hills MONO # 0.5 103/ul Normal 0.3-0.8 [facility] Comment on above: Performed By: #### C BC #### [facility] [address] [place] [address] Dr. Ashlie Hills Monocytes/100 WBC (Bld) 3.4 % Normal 1.7-12.0 [facility] Comment on above: Performed By: #### C BC #### [facility] [address] [place] [address] Dr. Ashlie Hills NEUT # 11.8 103/ul Critically high 1.4-6.5 [facility] Comment on above: Performed By: #### C BC #### [facility] [address] [place] [address] Dr. Ashlie Hills Neutrophils/100 WBC (Bld) 86.7 % Critically high 43.0-75.0 [facility] Comment on above: Performed By: #### C BC #### [facility] [address] [place] [address] Dr. Ashlie Hills Platelet mean volume (Bld) [Entitic vol] 12.6 fL Normal 9.5-13.5 [facility] Comment on above: Performed By: #### C BC #### [facility] [address] [place] [address] Dr. Ashlie Hills PLT 133 103/ul Critically low 150-450 [facility] Comment on above: Performed By: #### C BC #### [facility] [address] [place] [address] Dr. Ashlie Hills RBC 5.17 106/ul Normal 4.20-5.40 [facility] Comment on above: Performed By: #### C BC #### [facility] [address] [place] [address] Dr. Ashlie Hills WBC 13.6 103/ul Critically high 4.0-11.0 [facility] Comment on above: Performed By: #### C BC #### [facility] [address] [place] [address] Dr. Ashlie Hills MAGNESIUMon 12-06-2022 Magnesium [Mass/Vol] 2.2 mg/dL Normal 1.8-2.4 [facility] Comment on above: Performed By: #### I NFLUAB #### [facility] [address] [address] [address] Ashlie Hills POINT OF CARE GLUCOSEon 11-08 Glucose [Mass/Vol] 340 mg/dL Critically high -106 [facility] Comment on above: Performed By: #### P OCGLUC #### [facility] [address] [place] [address] Dr. Ashlie Hills Glucose [Mass/Vol] 276 mg/dL Critically high -106 [facility] Comment on above: Performed By: #### C BC #### [facility] [address] [address] [address] Ashlie Hills Glucose [Mass/Vol] 333 mg/dL Critically high [address] [place] [address] Comment on above: Performed By: #### C BC #### [facility] [address] [place] [address] Dr. Ashlie Hills PROF CHEM 8 (BAS METB)on Anion gap [Moles/Vol] 10.9 mmol/L Normal [facility] Comment on above: Performed By: #### I NFLUAB #### [facility] [address] [address] [address] Ashlie Hills Calcium [Mass/Vol] 9.3 mg/dL Normal 8.5-10.1 [facility] Comment on above: Performed By: #### I NFLUAB #### [facility] [address] [place] [address] Dr. Ashlie Hills Chloride [Moles/Vol] 103 mmol/L Normal 98-107 [facility] Comment on above: Performed By: #### I NFLUAB #### [facility] [address] [place] [address] Dr. Ashlie Hills CO2 [Moles/Vol] 31.2 mmol/L Normal 21.0-32.0 [facility] Comment on above: Performed By: #### I NFLUAB #### [facility] [address] [place] [address] Dr. Ashlie Hills Creatinine [Mass/Vol] 0.96 mg/dL Normal 0.55-1.02 [facility] Comment on above: Performed By: #### I NFLUAB #### [facility] [address] [address] [address] Ashlie Hills EGFR-AF BELARUSIAN >60 Normal >=60 [facility] Comment on above: Performed By: #### I NFLUAB #### [facility] [address] [address] [address] Ashlie Hills EGFR-NON AF BELARUSIAN >60 Normal >=60 [facility] Comment on above: Performed By: #### I NFLUAB #### [facility] [address] [address] [address] Ashlie Hills Glucose [Mass/Vol] 288 mg/dL Critically high 74-106 [facility] Comment on above: Performed By: #### I NFLUAB #### [facility] [address] [place] [address] Dr. Ashlie Hills Potassium [Moles/Vol] 5.1 mmol/L Normal 3.5-5.1 [facility] Comment on above: Performed By: #### I NFLUAB #### [facility] [address] [address] [address] Ashlie Hills Sodium [Moles/Vol] 140 mmol/L Normal 136-145 [facility] Comment on above: Performed By: #### I NFLUAB #### [facility] [address] [address] [address] Ashlie Hills Urea nitrogen [Mass/Vol] 30.0 mg/dL Critically high 7.0-18.0 [facility] Comment on above: Performed By: #### I NFLUAB #### [facility] [address] [address] [address] Ashlie Hills Urea nitrogen/Creatinine [Mass ratio] 31.2 mg/mg Normal [facility] Comment on above: Performed By: #### I NFLUAB #### [facility] [address] [place] [address] Dr. Ashlie Hills CBC AUTO DIFFon 12-05-2022 BASO # 0.0 103/ul Normal 0.0-0.1 [facility] Comment on above: Performed By: #### C BC #### [facility] [address] [address] [address] Ashlie Hills Basophils/100 WBC (Bld) 0.4 % Normal 0.2-2.0 [facility] Comment on above: Performed By: #### C BC #### [facility] [address] [place] [address] Dr. Ashlie Hills EO # 0.0 103/ul Normal 0.0-0.7 [facility] Comment on above: Performed By: #### C BC #### [facility] [address] [place] [address] Dr. Ashlie Hills Eosinophils/100 WBC (Bld) 0.0 % Critically low 0.9-7.0 [facility] Comment on above: Performed By: #### C BC #### [facility] [address] [place] [address] Dr. Ashlie Hills Erythrocyte distribution width (RBC) [Ratio] 14.8 % Normal 11.0-15.0 [facility] Comment on above: Performed By: #### C BC #### [facility] [address] [place] [address] Dr. Ashlie Hills Hematocrit (Bld) [Volume fraction] 49.9 % Critically high 36.0-48.0 [facility] Comment on above: Performed By: #### C BC #### [facility] [address] [place] [address] Dr. Ashlie Hills Hemoglobin (Bld) [Mass/Vol] 15.7 g/dL Normal 12.0-16.0 [facility] Comment on above: Performed By: #### C BC #### [facility] [address] [place] [address] Dr. Ashlie Hills IG # 0.04 10e3/ul Critically high 0.00-0.03 [facility] Comment on above: Performed By: #### C BC #### [facility] [address] [place] [address] Dr. Ashlie Hills IG % 0.5 % Normal 0.0-0.5 [facility] Comment on above: Performed By: #### C BC #### [facility] [address] [address] [address] Ashlie Hills LYMPH # 1.1 103/ul Critically low 1.2-3.8 [facility] Comment on above: Performed By: #### C BC #### [facility] [address] [address] [address] Ashlie Hills Lymphocytes/100 WBC (Bld) 12.7 % Critically low 20.5-60.0 [facility] Comment on above: Performed By: #### C BC #### [facility] [address] [place] [address] Dr. Ashlie Hills MANUAL DIFF REQ NO Normal [facility] Comment on above: Performed By: #### C BC #### [facility] [address] [place] [address] Dr. Ashlie Hills MCH (RBC) [Entitic mass] 28.1 pg Normal 26.7-34.0 [facility] Comment on above: Performed By: #### C BC #### [facility] [address] [place] [address] Dr. Ashlie Hills MCHC (RBC) [Mass/Vol] 31.5 g/dL Normal 29.9-35.2 [facility] Comment on above: Performed By: #### C BC #### [facility] [address] [place] [address] Dr. Ashlie Hills MCV (RBC) [Entitic vol] 89.3 fL Normal 81.0-99.0 [facility] Comment on above: Performed By: #### C BC #### [facility] [address] [address] [address] Ashlie Hills MONO # 0.1 103/ul Critically low 0.3-0.8 [facility] Comment on above: Performed By: #### C BC #### [facility] [address] [place] [address] Dr. Ashlie Hills Monocytes/100 WBC (Bld) 1.3 % Critically low 1.7-12.0 [facility] Comment on above: Performed By: #### C BC #### [facility] [address] [address] [address] Ashlie Hills NEUT # 7.2 103/ul Critically high 1.4-6.5 [facility] Comment on above: Performed By: #### C BC #### [facility] [address] [address] [address] Ashlie Hills Neutrophils/100 WBC (Bld) 85.1 % Critically high 43.0-75.0 [facility] Comment on above: Performed By: #### C BC #### [facility] [address] [address] [address] Ashlie Hills Platelet mean volume (Bld) [Entitic vol] 12.2 fL Normal 9.5-13.5 [facility] Comment on above: Performed By: #### C BC #### [facility] [address] [address] [address] Ashlie Hills PLT 116 103/ul Critically low 150-450 [facility] Comment on above: Performed By: #### C BC #### [facility] [address] [address] [address] Ashlie Hills RBC 5.59 106/ul Critically high 4.20-5.40 [facility] Comment on above: Performed By: #### C BC #### [facility] [address] [address] [address] Ashlie Hills WBC 8.5 103/ul Normal 4.0-11.0 [facility] Comment on above: Performed By: #### C BC #### [facility] [address] [place] [address] Dr. Ashlie Hills CTA CHEST WO W [...] by: HATTIE GOFF Date: 2022-12-05 01:52 Normal [facility] MAGNESIUMon 12-05-2022 Magnesium [Mass/Vol] 2.1 mg/dL Normal 1.8-2.4 [facility] Comment on above: Performed By: #### P OCGLUC #### [facility] [address] [address] [address] Ashlie Hills POINT OF CARE GLUCOSEon 11-08 Glucose [Mass/Vol] 293 mg/dL Critically high -106 [facility] Comment on above: Performed By: #### P OCGLUC #### [facility] [address] [address] [address] Ashlie Hills Glucose [Mass/Vol] 269 mg/dL Critically high -106 [facility] Comment on above: Performed By: #### P OCGLUC #### [facility] [address] [address] [address] Ashlie Hills Glucose [Mass/Vol] 223 mg/dL Critically high -106 [facility] Comment on above: Performed By: #### C VDAGS #### [facility] [address] [address] [address] Ashlie Hills PROF CHEM 8 (BAS METB)on Anion gap [Moles/Vol] 11.6 mmol/L Normal [facility] Comment on above: Performed By: #### P OCGLUC #### [facility] [address] [address] [address] Ashlie Hills Calcium [Mass/Vol] 9.2 mg/dL Normal 8.5-10.1 [facility] Comment on above: Performed By: #### P OCGLUC #### [facility] [address] [address] [address] Ashlie Hills Chloride [Moles/Vol] 102 mmol/L Normal 98-107 [facility] Comment on above: Performed By: #### P OCGLUC #### [facility] [address] [address] [address] Ashlie Hills CO2 [Moles/Vol] 28.7 mmol/L Normal 21.0-32.0 [facility] Comment on above: Performed By: #### P OCGLUC #### [facility] [address] [address] [address] Ashlie Hills Creatinine [Mass/Vol] 1.04 mg/dL Critically high 0.55-1.02 [facility] Comment on above: Performed By: #### P OCGLUC #### [facility] [address] [address] [address] Ashlie Hills EGFR-AF BELARUSIAN >60 Normal >=60 [facility] Comment on above: Performed By: #### P OCGLUC #### [facility] [address] [address] [address] Ashlie Hills EGFR-NON AF BELARUSIAN 56 mL/min/1.73m2 Critically low >=60 [facility] Comment on above: Performed By: #### P OCGLUC #### [facility] [address] [address] [address] Ashlie Hills Glucose [Mass/Vol] 231 mg/dL Critically high 74-106 [facility] Comment on above: Performed By: #### P OCGLUC #### [facility] [address] [address] [address] Ashlie Hills Potassium [Moles/Vol] 4.3 mmol/L Normal 3.5-5.1 [facility] Comment on above: Performed By: #### P OCGLUC #### [facility] [address] [address] [address] Ashlie Hills Sodium [Moles/Vol] 138 mmol/L Normal 136-145 [facility] Comment on above: Performed By: #### P OCGLUC #### [facility] [address] [address] [address] Ashlie Hills Urea nitrogen [Mass/Vol] 17.0 mg/dL Normal 7.0-18.0 [facility] Comment on above: Performed By: #### P OCGLUC #### [facility] [address] [place] [address] Dr. Ashlie Hills Urea nitrogen/Creatinine [Mass ratio] 16.3 mg/mg Normal [facility] Comment on above: Performed By: #### P OCGLUC #### [facility] [address] [address] [address] Ashlie Hills RESPIRATORY PANEL PLUSon Adenovirus Not detected Normal NOT DETECTED [facility] Comment on above: Performed By: #### C VDAGS #### [facility] [address] [place] [address] Dr. Ashlie Shaffer. Parapertusis Not detected Normal NOT DETECTED The [facility] Comment on above: Performed By: #### C VDAGS #### [facility] [address] [address] [address] Ashlie Shaffer. Pertussis Not detected Normal NOT DETECTED The [facility] Comment on above: Performed By: #### C VDAGS #### [facility] [address] [address] [address] Ashlie Hills Chlamydia Pneumoniae Not detected Normal NOT DETECTED [facility] Comment on above: Performed By: #### C VDAGS #### [facility] [address] [place] [address] Dr. Ashlie Hills Coronavirus 229E Not detected Normal NOT DETECTED [facility] Comment on above: Performed By: #### C VDAGS #### [facility] [address] [address] [address] Ashlie Hills Coronavirus HKU1 Not detected Normal NOT DETECTED [facility] Comment on above: Performed By: #### C VDAGS #### [facility] [address] [place] [address] Dr. Ashlie Hills Coronavirus NL63 Not detected Normal NOT DETECTED [facility] Comment on above: Performed By: #### C VDAGS #### [facility] [address] [place] [address] Dr. Ashlie Hills Coronavirus OC43 Not detected Normal NOT DETECTED [facility] Comment on above: Performed By: #### C VDAGS #### [facility] [address] [place] [address] Dr. Ashlie Hills Influenza A H1 Not detected Normal NOT DETECTED The [facility] Comment on above: Performed By: #### C VDAGS #### [facility] [address] [place] [address] Dr. Ashlie Hills Influenza A H1 2009 Not detected Normal NOT DETECTED [facility] Comment on above: Performed By: #### C VDAGS #### [facility] [address] [place] [address] Dr. Ashlie Hills Influenza A H3 Not detected Normal NOT DETECTED The [facility] Comment on above: Performed By: #### C VDAGS #### [facility] [address] [place] [address] Dr. Ashlie Hills Influenza B Not detected Normal NOT DETECTED The [facility] Comment on above: Performed By: #### C VDAGS #### [facility] [address] [place] [address] Dr. Ashlie Hills Metapneumovirus Not detected Normal NOT DETECTED The [facility] Comment on above: Performed By: #### C VDAGS #### [facility] [address] [place] [address] Dr. Ashlie Hills Mycoplas. Pneumoniae Not detected Normal NOT DETECTED [facility] Comment on above: Performed By: #### C VDAGS #### [facility] [address] [place] [address] Dr. Ashlie Hills Parainfluenza 1 Not detected Normal NOT DETECTED The [facility] Comment on above: Performed By: #### C VDAGS #### [facility] [address] [place] [address] Dr. Ashlie Hills Parainfluenza 2 Not detected Normal NOT DETECTED The [facility] Comment on above: Performed By: #### C VDAGS #### [facility] [address] [place] [address] Dr. Ashlie Hills Parainfluenza 3 Detected Abnormal NOT DETECTED [facility] Comment on above: Performed By: #### C VDAGS #### [facility] [address] [place] [address] Dr. Ashlie Hills Parainfluenza 4 Not detected Normal NOT DETECTED The [facility] Comment on above: Performed By: #### C VDAGS #### [facility] [address] [place] [address] Dr. Ashlie Hills Rhino/Enterovirus Not detected Normal NOT DETECTED [facility] Comment on above: Performed By: #### C VDAGS #### [facility] [address] [place] [address] Dr. Ashlie Hills RP2 Header 1 RESPIRATORY PANEL: VIRUSES Normal [facility] Comment on above: Performed By: #### C VDAGS #### [facility] [address] [place] [address] Dr. Ashlie Hills RP2 Header 2 RESPIRATORY PANEL: BACTERIA Normal [facility] Comment on above: Performed By: #### C VDAGS #### [facility] [address] [place] [address] Dr. Ashlie Hills RSV Not detected Normal NOT DETECTED The [facility] Comment on above: Performed By: #### C VDAGS #### [facility] [address] [place] [address] Dr. Ashlie Hills SARS-CoV-2 (COVID-19) RNA MADDY+probe Ql (Unsp spec) Not detected Normal NOT DETECTED [facility] Comment on above: Performed By: #### C VDAGS #### [facility] [address] [place] [address] Dr. Ashlie Hills XR CHEST 1 Von [...] MARYANNE POWER Date: 2022-12-04 22:23 Normal [facility] BLOOD GASES BTYon 12-04-2022 02 MODE ROOM AIR Normal [facility] Comment on above: Performed By: #### C BC #### [facility] [address] [place] [address] Dr. Ashlie Hills ALLENS TEST Positive Normal [facility] Comment on above: Performed By: #### C BC #### [facility] [address] [place] [address] Dr. Ashlie Hills Base excess Calc (Bld) [Moles/Vol] 5.4 mmol/L Critically high -2.0-2.0 [facility] Comment on above: Performed By: #### C BC #### [facility] [address] [place] [address] Dr. Ashlie Hills BIPAP PRESSURE Normal [facility] Comment on above: Performed By: #### C BC #### [facility] [address] [place] [address] Dr. Ashlie Hills CPAP [facility] Comment on above: Performed By: #### C BC #### [facility] [address] [place] [address] Dr. Ashlie Hills FIO2 Normal [facility] Comment on above: Performed By: #### C BC #### [facility] [address] [place] [address] Dr. Ashlie Hills HCO3 (Bld) [Moles/Vol] 30.8 mmol/L Critically high 22.0-26 .0 [facility] Comment on above: Performed By: #### C BC #### [facility] [address] [place] [address] Dr. Ashlie Hills LPM Normal [facility] Comment on above: Performed By: #### C BC #### [facility] [address] [place] [address] Dr. Ashlie Hills MINUTE VOLUME Normal [facility] Comment on above: Performed By: #### C BC #### [facility] [address] [place] [address] Dr. Ashlie Hills Oxygen (Bld) [Partial pressure] 46.3 mm[Hg] Critically low 80.0-100.0 [facility] Comment on above: Performed By: #### C BC #### [facility] [address] [place] [address] Dr. Ashlie Hills Oxygen saturation in Blood 83.9 % Critically low 95.0-100.0 [facility] Comment on above: Performed By: #### C BC #### [facility] [address] [place] [address] Dr. Ashlie Hills PCO2 54.2 mmHg Critically high 35.0-45.0 [facility] Comment on above: Performed By: #### C BC #### [facility] [address] [place] [address] Dr. Ashlie Hills PEEP [facility] Comment on above: Performed By: #### C BC #### [facility] [address] [place] [address] Dr. Ashlie Hills pH (Bld) 7.363 [pH] Normal 7.350-7.450 [facility] Comment on above: Performed By: #### C BC #### [facility] [address] [place] [address] Dr. Ashlie Hills PIP [facility] Comment on above: Performed By: #### C BC #### [facility] [address] [place] [address] Dr. Ashlie Hills PS [facility] Comment on above: Performed By: #### C BC #### [facility] [address] [place] [address] Dr. Ashlie Hills PUNCTURE SITE LR [facility] Comment on above: Performed By: #### C BC #### [facility] [address] [place] [address] Dr. Ashlie Hills RATE [facility] Comment on above: Performed By: #### C BC #### [facility] [address] [place] [address] Dr. Ashlie Hills VENT MODE [facility] Comment on above: Performed By: #### C BC #### [facility] [address] [place] [address] Dr. Ashlie Hills [facility] Comment on above: Performed By: #### C BC #### [facility] [address] [place] [address] Dr. Ashlie Hills BNPon 12-04-2022 Natriuretic peptide B (Bld) [Mass/Vol] 76.0 pg/mL Normal <=900.0 [facility] Comment on above: Performed By: #### P OCGLUC #### [facility] [address] [place] [address] Dr. Ashlie Hills CBC AUTO DIFFon 12-04-2022 BASO # 0.1 103/ul Normal 0.0-0.1 [facility] Comment on above: Performed By: #### C BC #### [facility] [address] [place] [address] Dr. Ashlie Hills Basophils/100 WBC (Bld) 0.6 % Normal 0.2-2.0 [facility] Comment on above: Performed By: #### C BC #### [facility] [address] [place] [address] Dr. Ashlie Hills EO # 0.2 103/ul Normal 0.0-0.7 [facility] Comment on above: Performed By: #### C BC #### [facility] [address] [place] [address] Dr. Ashlie Hills Eosinophils/100 WBC (Bld) 1.9 % Normal 0.9-7.0 [facility] Comment on above: Performed By: #### C BC #### [facility] [address] [place] [address] Dr. Ashlie Hills Erythrocyte distribution width (RBC) [Ratio] 15.0 % Normal 11.0-15.0 [facility] Comment on above: Performed By: #### C BC #### [facility] [address] [place] [address] Dr. Ashlie Hills Hematocrit (Bld) [Volume fraction] 49.1 % Critically high 36.0-48.0 [facility] Comment on above: Performed By: #### C BC #### [facility] [address] [place] [address] Dr. Ashlie Hills Hemoglobin (Bld) [Mass/Vol] 15.6 g/dL Normal 12.0-16.0 [facility] Comment on above: Performed By: #### C BC #### [facility] [address] [place] [address] Dr. Ashlie Hills IG # 0.02 10e3/ul Normal 0.00-0.03 [facility] Comment on above: Performed By: #### C BC #### [facility] [address] [place] [address] Dr. Ashlie Hills IG % 0.2 % Normal 0.0-0.5 [facility] Comment on above: Performed By: #### C BC #### [facility] [address] [place] [address] Dr. Ashlie Hills LYMPH # 2.8 103/ul Normal 1.2-3.8 [facility] Comment on above: Performed By: #### C BC #### [facility] [address] [place] [address] Dr. Ashlie Hills Lymphocytes/100 WBC (Bld) 29.9 % Normal 20.5-60.0 [facility] Comment on above: Performed By: #### C BC #### [facility] [address] [place] [address] Dr. Ashlie Hills MANUAL DIFF REQ NO Normal [facility] Comment on above: Performed By: #### C BC #### [facility] [address] [place] [address] Dr. Ashlie Hills MCH (RBC) [Entitic mass] 28.5 pg Normal 26.7-34.0 [facility] Comment on above: Performed By: #### C BC #### [facility] [address] [place] [address] Dr. Ashlie Hills MCHC (RBC) [Mass/Vol] 31.8 g/dL Normal 29.9-35.2 [facility] Comment on above: Performed By: #### C BC #### [facility] [address] [place] [address] Dr. Ashlie Hills MCV (RBC) [Entitic vol] 89.8 fL Normal 81.0-99.0 [facility] Comment on above: Performed By: #### C BC #### [facility] [address] [place] [address] Dr. Ashlie Hills MONO # 1.0 103/ul Critically high 0.3-0.8 [facility] Comment on above: Performed By: #### C BC #### [facility] [address] [place] [address] Dr. Ashlie Hills Monocytes/100 WBC (Bld) 10.6 % Normal 1.7-12.0 [facility] Comment on above: Performed By: #### C BC #### [facility] [address] [place] [address] Dr. Ashlie Hills NEUT # 5.3 103/ul Normal 1.4-6.5 [facility] Comment on above: Performed By: #### C BC #### [facility] [address] [place] [address] Dr. Ashlie Hills Neutrophils/100 WBC (Bld) 56.8 % Normal 43.0-75.0 [facility] Comment on above: Performed By: #### C BC #### [facility] [address] [place] [address] Dr. Ashlie Hills Platelet mean volume (Bld) [Entitic vol] 12.5 fL Normal 9.5-13.5 [facility] Comment on above: Performed By: #### C BC #### [facility] [address] [place] [address] Dr. Ashlie Hills PLT 109 103/ul Critically low 150-450 [facility] Comment on above: Performed By: #### C BC #### [facility] [address] [place] [address] Dr. Ashlie Hills RBC 5.47 106/ul Critically high 4.20-5.40 [facility] Comment on above: Performed By: #### C BC #### [facility] [address] [place] [address] Dr. Ashlie Hills WBC 9.4 103/ul Normal 4.0-11.0 [facility] Comment on above: Performed By: #### C BC #### [facility] [address] [place] [address] Dr. Ashlie Hills PROF 14(COMP METB)on 023 Albumin [Mass/Vol] 2.9 g/dL Critically low 3.4-5.0 [facility] Comment on above: Performed By: #### C BC #### [facility] [address] [place] [address] Dr. Ashlie Hills Albumin/Globulin [Mass ratio] 0.6 {ratio} Normal [facility] Comment on above: Performed By: #### C BC #### [facility] [address] [place] [address] Dr. Ashlie Hills ALP [Catalytic activity/Vol] 64 U/L Normal 46-116 [facility] Comment on above: Performed By: #### C BC #### [facility] [address] [place] [address] Dr. Ashlie Hills ALT [Catalytic activity/Vol] 16 U/L Normal 14-59 [facility] Comment on above: Performed By: #### C BC #### [facility] [address] [place] [address] Dr. Ashlie Hills Anion gap [Moles/Vol] 9.6 mmol/L Normal [facility] Comment on above: Performed By: #### C BC #### [facility] [address] [address] [address] Ashlie Hills AST [Catalytic activity/Vol] 16 U/L Normal 15-37 [facility] Comment on above: Performed By: #### C BC #### [facility] [address] [address] [address] Ashlie Hills Bilirubin [Mass/Vol] 0.5 mg/dL Normal 0.2-1.0 [facility] Comment on above: Performed By: #### C BC #### [facility] [address] [address] [address] Ashlie Hills Calcium [Mass/Vol] 8.7 mg/dL Normal 8.5-10.1 [facility] Comment on above: Performed By: #### C BC #### [facility] [address] [address] [address] Ashlie Hills Chloride [Moles/Vol] 103 mmol/L Normal 98-107 [facility] Comment on above: Performed By: #### C BC #### [facility] [address] [address] [address] Ashlie Hills CO2 [Moles/Vol] 30.7 mmol/L Normal 21.0-32.0 [facility] Comment on above: Performed By: #### C BC #### [facility] [address] [address] [address] Ashlie Hills Creatinine [Mass/Vol] 0.96 mg/dL Normal 0.55-1.02 [facility] Comment on above: Performed By: #### C BC #### [facility] [address] [address] [address] Ashlie Hills EGFR-AF BELARUSIAN >60 Normal >=60 [facility] Comment on above: Performed By: #### C BC #### [facility] [address] [address] [address] Ashlie Hills EGFR-NON AF BELARUSIAN >60 Normal >=60 [facility] Comment on above: Performed By: #### C BC #### [facility] [address] [address] [address] Ashlie Hills Globulin (S) [Mass/Vol] 4.7 g/dL Normal [facility] Comment on above: Performed By: #### C BC #### [facility] [address] [address] [address] Ashlie Hills Glucose [Mass/Vol] 170 mg/dL Critically high 74-106 [facility] Comment on above: Performed By: #### C BC #### [facility] [address] [address] [address] Ashlie Hills Potassium [Moles/Vol] 4.3 mmol/L Normal 3.5-5.1 [facility] Comment on above: Performed By: #### C BC #### [facility] [address] [place] [address] Dr. Ashlie Hills Protein [Mass/Vol] 7.6 g/dL Normal 6.4-8.2 The [facility] Comment on above: Performed By: #### C BC #### [facility] [address] [place] [address] Dr. Ashlie Hills Sodium [Moles/Vol] 139 mmol/L Normal 136-145 [facility] Comment on above: Performed By: #### C BC #### [facility] [address] [place] [address] Dr. Ashlie Hills Urea nitrogen [Mass/Vol] 16.0 mg/dL Normal 7.0-18.0 [facility] Comment on above: Performed By: #### C BC #### [facility] [address] [place] [address] Dr. Ashlie Hills Urea nitrogen/Creatinine [Mass ratio] 16.7 mg/mg Normal [facility] Comment on above: Performed By: #### C BC #### [facility] [address] [place] [address] Dr. Ashlie Hills SYMPTOMATIC COVID-19 ANTIGEN on 12-04-2022 EUA Statement SEE BELOW Normal [facility] Comment on above: Result [...] sooner. Performed By: #### C VDAGS #### [facility] [address] [place] [address] Dr. Ashlie Hills SARS-CoV-2 (COVID-19) RNA MADDY+probe Ql (Unsp spec) Negative Normal NEGATIVE [facility] Comment on above: Performed By: #### C VDAGS #### [facility] [address] [place] [address] Dr. Ashlie Hills TROPONIN, HIGH SENSITIVITYon 12-04-2022 HSTROP 8.9 pg/mL Normal 4.0-51.3 [facility] Comment on above: Result Comment: CUT- OFF POINTS HAVE BEEN ESTABLISHED BASED ON THE FOURTH UNIVERSAL DEFINITIONS OF MYOCARDIAL INFARCTION. THE UPPER REFERENCE LIMIT (URL) OF TROPONIN, DEFINED THE 99TH PERCENTILE OF cTnI DISTRIBUTION IN A REFERENCE POPULATION, HAS BEEN CONFIRMED THE DECISION THRESHOLD FOR DC DIAGNOSIS. Performed By: #### P OCGLUC #### [facility] [address] [place] [address] Dr. Ashlie Hills MICROALBUMIN, RAND URon - mALB 35.8 mg/dL Critically high <=30.0 [facility] Comment on above: Performed By: #### C VDAGS #### [facility] [address] [place] [address] Dr. Ashlie Hills UA RANDOM W/MICROSCOPICon BACTERIA NONE SEEN Normal NONE SEEN [facility] Comment on above: Performed By: #### C VDAGS #### [facility] [address] [place] [address] Dr. Ashlie Hills Bilirubin Ql (U) Negative Normal NEGATIVE [facility] Comment on above: Performed By: #### C VDAGS #### [facility] [address] [place] [address] Dr. Ashlie Hills CAST SEEN Abnormal NONE SEEN [facility] Comment on above: Performed By: #### C VDAGS #### [facility] [address] [place] [address] Dr. Ashlie Hills Clarity (U) CLEAR Normal CLEAR [facility] Comment on above: Performed By: #### C VDAGS #### [facility] [address] [place] [address] Dr. Ashlie Hills Color (U) YELLOW Normal YELLOW [facility] Comment on above: Performed By: #### C VDAGS #### [facility] [address] [place] [address] Dr. Ashlie Hills Crystals LM Nom (Urine sed) NONE SEEN Normal NONE SEEN [facility] Comment on above: Performed By: #### C VDAGS #### [facility] [address] [place] [address] Dr. Ashlie Hills Epithelial cells LM Ql (Urine sed) MODERATE Abnormal NONE SEEN /RARE [facility] Comment on above: Performed By: #### C VDAGS #### [facility] [address] [place] [address] Dr. Ashlie Hills Glucose Ql (U) Negative Normal NEGATIVE [facility] Comment on above: Performed By: #### C VDAGS #### [facility] [address] [place] [address] Dr. Ashlie Hills Hemoglobin Ql (U) TRACE-INTACT Abnormal NEGATIVE [facility] Comment on above: Performed By: #### C VDAGS #### [facility] [address] [place] [address] Dr. Ashlie Hills Ketones Ql (U) Negative Normal NEGATIVE [facility] Comment on above: Performed By: #### C VDAGS #### [facility] [address] [place] [address] Dr. Ashlie Hills LEUKOCYTES Negative Normal NEGATIVE [facility] Comment on above: Performed By: #### C VDAGS #### [facility] [address] [place] [address] Dr. Ashlie Hills MUCOUS NONE SEEN Normal NONE SEEN [facility] Comment on above: Performed By: #### C VDAGS #### [facility] [address] [place] [address] Dr. Ashlie Hills Nitrite Ql (U) Negative Normal NEGATIVE [facility] Comment on above: Performed By: #### C VDAGS #### [facility] [address] [place] [address] Dr. Ashlie Hills pH (U) 5.0 [pH] Normal 5-9 [facility] Comment on above: Performed By: #### C VDAGS #### [facility] [address] [place] [address] Dr. Ashlie Hills RBC 0-2 Normal 0-2 [facility] Comment on above: Performed By: #### C VDAGS #### [facility] [address] [place] [address] Dr. Ashlie Hills SPEC GRAVITY 1.030 Abnormal 1.005-<=1.025 [facility] Comment on above: Performed By: #### C VDAGS #### [facility] [address] [place] [address] Dr. Ashlie Hills UA PROTEIN 100 mg/dl Abnormal NEGATIVE/ TRACE [facility] Comment on above: Performed By: #### C VDAGS #### [facility] [address] [place] [address] Dr. Ashlie Hills Urobilinogen Qn (U) 0.2 {Little'U}/dL Normal 0.2 - 1. 0 [facility] Comment on above: Performed By: #### C VDAGS #### [facility] [address] [place] [address] Dr. Ashlie Hills WBC NONE SEEN Normal NONE SEEN [facility] Comment on above: Performed By: #### C VDAGS #### [facility] [address] [place] [address] Dr. Ashlie Hills CBC AUTO DIFFon 05-17-2023 BASO # 0.0 103/ul Normal 0.0-0.1 [facility] Comment on above: Performed By: #### C BC #### [facility] [address] [address] [address] Ashlie Hills Basophils/100 WBC (Bld) 0.3 % Normal 0.2-2.0 [facility] Comment on above: Performed By: #### C BC #### [facility] [address] [address] [address] Ashlie Hills EO # 0.4 103/ul Normal 0.0-0.7 [facility] Comment on above: Performed By: #### C BC #### [facility] [address] [place] [address] Dr. Ashlie Hills Eosinophils/100 WBC (Bld) 3.0 % Normal 0.9-7.0 [facility] Comment on above: Performed By: #### C BC #### [facility] [address] [place] [address] Dr. Ashlie Hills Erythrocyte distribution width (RBC) [Ratio] 15.3 % Critically high 11.0-15.0 [facility] Comment on above: Performed By: #### C BC #### [facility] [address] [place] [address] Dr. Ashlie Hills Hematocrit (Bld) [Volume fraction] 52.4 % Critically high 36.0-48.0 [facility] Comment on above: Performed By: #### C BC #### [facility] [address] [place] [address] Dr. Ashlie Hills Hemoglobin (Bld) [Mass/Vol] 16.8 g/dL Critically high 12.0-16.0 [facility] Comment on above: Performed By: #### C BC #### [facility] [address] [place] [address] Dr. Ashlie Hills IG # 0.04 10e3/ul Critically high 0.00-0.03 [facility] Comment on above: Performed By: #### C BC #### [facility] [address] [place] [address] Dr. Ashlie Hills IG % 0.3 % Normal 0.0-0.5 [facility] Comment on above: Performed By: #### C BC #### [facility] [address] [place] [address] Dr. Ashlie Hills LYMPH # 4.5 103/ul Critically high 1.2-3.8 [facility] Comment on above: Performed By: #### C BC #### [facility] [address] [place] [address] Dr. Ashlie Hills Lymphocytes/100 WBC (Bld) 33.2 % Normal 20.5-60.0 [facility] Comment on above: Performed By: #### C BC #### [facility] [address] [place] [address] Dr. Ashlie Hills MANUAL DIFF REQ NO Normal [facility] Comment on above: Performed By: #### C BC #### [facility] [address] [place] [address] Dr. Ashlie Hills MCH (RBC) [Entitic mass] 28.0 pg Normal 26.7-34.0 [facility] Comment on above: Performed By: #### C BC #### [facility] [address] [place] [address] Dr. Ashlie Hills MCHC (RBC) [Mass/Vol] 32.1 g/dL Normal 29.9-35.2 [facility] Comment on above: Performed By: #### C BC #### [facility] [address] [place] [address] Dr. Ashlie Hills MCV (RBC) [Entitic vol] 87.3 fL Normal 81.0-99.0 [facility] Comment on above: Performed By: #### C BC #### [facility] [address] [place] [address] Dr. Ashlie Hills MONO # 0.8 103/ul Normal 0.3-0.8 [facility] Comment on above: Performed By: #### C BC #### [facility] [address] [place] [address] Dr. Ashlie Hills Monocytes/100 WBC (Bld) 5.7 % Normal 1.7-12.0 [facility] Comment on above: Performed By: #### C BC #### [facility] [address] [address] [address] Ashlie Hills NEUT # 7.8 103/ul Critically high 1.4-6.5 [facility] Comment on above: Performed By: #### C BC #### [facility] [address] [address] [address] Ashlie Hills Neutrophils/100 WBC (Bld) 57.5 % Normal 43.0-75.0 [facility] Comment on above: Performed By: #### C BC #### [facility] [address] [place] [address] Dr. Ashlie Hills Platelet mean volume (Bld) [Entitic vol] 12.0 fL Normal 9.5-13.5 [facility] Comment on above: Performed By: #### C BC #### [facility] [address] [address] [address] Ashlie Hills PLT 152 103/ul Normal 150-450 [facility] Comment on above: Performed By: #### C BC #### [facility] [address] [place] [address] Dr. Ashlie Hills RBC 6.00 106/ul Critically high 4.20-5.40 [facility] Comment on above: Performed By: #### C BC #### [facility] [address] [place] [address] Dr. Ashlie Hills WBC 13.6 103/ul Critically high 4.0-11.0 [facility] Comment on above: Performed By: #### C BC #### [facility] [address] [place] [address] Dr. Ashlie Hills LIPID PROFILEon 11-22-2022 CHOL-HDL RATIO NORM SEE BELOW Normal [facility] Comment on above: Result Comment: 3.3 - 4.4 LOW RISK 4.4 - 7.1 AVERAGE RISK 7.1 - 11.0 MODERATE RISK >11.0 HIGH RISK Performed By: #### C BC #### [facility] [address] [address] [address] Ashlie Hills Cholesterol [Mass/Vol] 139 mg/dL Normal <=200 [facility] Comment on above: Performed By: #### C BC #### [facility] [address] [address] [address] Ashlie Hills Cholesterol in HDL [Mass/Vol] 35 mg/dL Critically low 40-60 [facility] Comment on above: Performed By: #### C BC #### [facility] [address] [address] [address] Ashlie Hills Cholesterol in LDL [Mass/Vol] 67.4 mg/dL Normal [facility] Comment on above: Performed By: #### C BC #### [facility] [address] [address] [address] Ashlie Hills Cholesterol.total/Chol esterol in HDL [Mass ratio] 4.0 {ratio} Normal [facility] Comment on above: Performed By: #### C BC #### [facility] [address] [address] [address] Ashlie Hills HDL NORMAL > or = 60 mg/dl - LOW CARDIOVASCULAR RISK <40 mg/dl - HIGH CARDIOVASCULAR RISK Normal [facility] Comment on above: Performed By: #### C BC #### [facility] [address] [address] [address] Ashlie Hills LDL CALC NORMAL SEE BELOW Normal [facility] Comment on above: Result Comment: <100 mg/dl OPTIMAL 100 - 129 mg/dl NEAR OR ABOVE OPTIMAL 130 - 159 mg/dl BORDERLINE HIGH 160 - 189 mg/dl HIGH >190 mg/dl VERY HIGH Performed By: #### C BC #### [facility] [address] [address] [address] Ashlie Hills Triglyceride [Mass/Vol] 183 mg/dL Critically high <=150 [facility] Comment on above: Performed By: #### C BC #### [facility] [address] [address] [address] Ashlie Hills VLDL CALC 36.6 mg/dL Normal [facility] Comment on above: Performed By: #### C BC #### [facility] [address] [place], [place] [address] Dr. Ashlie Hills MG MAMM SCREEN 3D ALEX CADon 11-22-2022 MG MAMM SCREEN 3D ALEX CAD Patient: MITZI MACIAS Exam Date: 11/22/2022 : 1970 Gender:F Ordering : SAYDA MCKAYLA [employer] Admission #: [id number] Family : Order #: [id number] CLICK HERE TO VIEW EXAM RADIOLOGY REPORT [...] unknown cancer at age 75. LOCATION: [facility] BREAST COMPOSITION: Almost entirely fatty. FINDINGS: [...] M.D. on 11/22/2022 at 12:09 Normal [facility] PROF 14(COMP METB)on 023 Albumin [Mass/Vol] 3.0 g/dL Critically low 3.4-5.0 Th e [facility] Comment on above: Performed By: #### C BC #### [facility] [address] [place], [place] [address] Dr. Ashlie Hills Albumin/Globulin [Mass ratio] 0.6 {ratio} Normal [facility] Comment on above: Performed By: #### C BC #### [facility] [address] [address] [address] Ashlie Hills ALP [Catalytic activity/Vol] 68 U/L Normal 46-116 [facility] Comment on above: Performed By: #### C BC #### [facility] [address] [address] [address] Ashlie Hills ALT [Catalytic activity/Vol] 14 U/L Normal 14-59 [facility] Comment on above: Performed By: #### C BC #### [facility] [address] [place] [address] Dr. Ashlie Hills Anion gap [Moles/Vol] 12.1 mmol/L Normal Th e [facility] Comment on above: Performed By: #### C BC #### [facility] [address] [place] [address] Dr. Ashlie Hills AST [Catalytic activity/Vol] 9 U/L Critically low 15-37 [facility] Comment on above: Performed By: #### C BC #### [facility] [address] [place] [address] Dr. Ashlie Hills Bilirubin [Mass/Vol] 0.4 mg/dL Normal 0.2-1.0 [facility] Comment on above: Performed By: #### C BC #### [facility] [address] [place] [address] Dr. Ashlie Hills Calcium [Mass/Vol] 9.0 mg/dL Normal 8.5-10.1 [facility] Comment on above: Performed By: #### C BC #### [facility] [address] [place] [address] Dr. Ashlie Hills Chloride [Moles/Vol] 105 mmol/L Normal 98-107 [facility] Comment on above: Performed By: #### C BC #### [facility] [address] [place] [address] Dr. Ashlie Hills CO2 [Moles/Vol] 30.7 mmol/L Normal 21.0-32.0 [facility] Comment on above: Performed By: #### C BC #### [facility] [address] [address] [address] Ashlie Hills Creatinine [Mass/Vol] 0.77 mg/dL Normal 0.55-1.02 [facility] Comment on above: Performed By: #### C BC #### [facility] [address] [address] [address] Ashlie Hills EGFR-AF BELARUSIAN >60 Normal >=60 [facility] Comment on above: Performed By: #### C BC #### [facility] [address] [place] [address] Dr. Ashlie Hills EGFR-NON AF BELARUSIAN >60 Normal >=60 [facility] Comment on above: Performed By: #### C BC #### [facility] [address] [place] [address] Dr. Ashlie Hills Globulin (S) [Mass/Vol] 4.8 g/dL Normal [facility] Comment on above: Performed By: #### C BC #### [facility] [address] [place] [address] Dr. Ashlie Hills Glucose [Mass/Vol] 162 mg/dL Critically high 74-106 [facility] Comment on above: Performed By: #### C BC #### [facility] [address] [place] [address] Dr. Ashlie Hills Potassium [Moles/Vol] 3.8 mmol/L Normal 3.5-5.1 [facility] Comment on above: Performed By: #### C BC #### [facility] [address] [place] [address] Dr. Ashlie Hills Protein [Mass/Vol] 7.8 g/dL Normal 6.4-8.2 The [facility] Comment on above: Performed By: #### C BC #### [facility] [address] [place] [address] Dr. Ashlie Hilsl Sodium [Moles/Vol] 144 mmol/L Normal 136-145 [facility] Comment on above: Performed By: #### C BC #### [facility] [address] [place] [address] Dr. Ashlie Hills Urea nitrogen [Mass/Vol] 24.0 mg/dL Critically high 7.0-18.0 [facility] Comment on above: Performed By: #### C BC #### [facility] [address] [place] [address] Dr. Ashlie Hills Urea nitrogen/Creatinine [Mass ratio] 31.2 mg/mg Normal [facility] Comment on above: Performed By: #### C BC #### [facility] [address] [place] [address] Dr. Ashlie Hills CBC AUTO DIFFon 10-05-2022 BASO # 0.1 103/ul Normal 0.0-0.1 [facility] Comment on above: Performed By: #### C BC #### [facility] [address] [place] [address] Dr. Ashlie Hills Basophils/100 WBC (Bld) 0.6 % Normal 0.2-2.0 [facility] Comment on above: Performed By: #### C BC #### [facility] [address] [place] [address] Dr. Ashlie Hills EO # 0.3 103/ul Normal 0.0-0.7 [facility] Comment on above: Performed By: #### C BC #### [facility] [address] [place] [address] Dr. Ashlie Hills Eosinophils/100 WBC (Bld) 2.1 % Normal 0.9-7.0 [facility] Comment on above: Performed By: #### C BC #### [facility] [address] [place] [address] Dr. Ashlie Hills Erythrocyte distribution width (RBC) [Ratio] 15.9 % Critically high 11.0-15.0 [facility] Comment on above: Performed By: #### C BC #### [facility] [address] [place] [address] Dr. Ashlie Hills Hematocrit (Bld) [Volume fraction] 51.8 % Critically high 36.0-48.0 [facility] Comment on above: Performed By: #### C BC #### [facility] [address] [place] [address] Dr. Ashlie Hills Hemoglobin (Bld) [Mass/Vol] 16.6 g/dL Critically high 12.0-16.0 [facility] Comment on above: Performed By: #### C BC #### [facility] [address] [place] [address] Dr. Ashlie Hills IG # 0.03 10e3/ul Normal 0.00-0.03 [facility] Comment on above: Performed By: #### C BC #### [facility] [address] [place] [address] Dr. Ashlie Hills IG % 0.2 % Normal 0.0-0.5 [facility] Comment on above: Performed By: #### C BC #### [facility] [address] [place] [address] Dr. Ashlie Hills LYMPH # 3.9 103/ul Critically high 1.2-3.8 [facility] Comment on above: Performed By: #### C BC #### [facility] [address] [place] [address] Dr. Ashlie Hills Lymphocytes/100 WBC (Bld) 31.7 % Normal 20.5-60.0 [facility] Comment on above: Performed By: #### C BC #### [facility] [address] [place] [address] Dr. Ashlie Hills MANUAL DIFF REQ NO Normal [facility] Comment on above: Performed By: #### C BC #### [facility] [address] [place] [address] Dr. Ashlie Hills MCH (RBC) [Entitic mass] 27.9 pg Normal 26.7-34.0 [facility] Comment on above: Performed By: #### C BC #### [facility] [address] [place] [address] Dr. Ashlie Hills MCHC (RBC) [Mass/Vol] 32.0 g/dL Normal 29.9-35.2 [facility] Comment on above: Performed By: #### C BC #### [facility] [address] [place] [address] Dr. Ashlie Hills MCV (RBC) [Entitic vol] 87.1 fL Normal 81.0-99.0 [facility] Comment on above: Performed By: #### C BC #### [facility] [address] [place] [address] Dr. Ashlie Hills MONO # 0.7 103/ul Normal 0.3-0.8 [facility] Comment on above: Performed By: #### C BC #### [facility] [address] [address] [address] Ashlie Hills Monocytes/100 WBC (Bld) 5.8 % Normal 1.7-12.0 [facility] Comment on above: Performed By: #### C BC #### [facility] [address] [place] [address] Dr. Ashlie Hills NEUT # 7.3 103/ul Critically high 1.4-6.5 [facility] Comment on above: Performed By: #### C BC #### [facility] [address] [place] [address] Dr. Ashlie Hills Neutrophils/100 WBC (Bld) 59.6 % Normal 43.0-75.0 [facility] Comment on above: Performed By: #### C BC #### [facility] [address] [place] [address] Dr. Ashlie Hills Platelet mean volume (Bld) [Entitic vol] 11.7 fL Normal 9.5-13.5 [facility] Comment on above: Performed By: #### C BC #### [facility] [address] [place] [address] Dr. Ashlie Hills PLT 117 103/ul Critically low 150-450 [facility] Comment on above: Performed By: #### C BC #### [facility] [address] [place], [place] [id number] Dr. Ashlie Hills RBC 5.95 106/ul Critically high 4.20-5.40 [facility] Comment on above: Performed By: #### C BC #### [facility] [address] [place] [address] Dr. Ashlie Hills WBC 12.3 103/ul Critically high 4.0-11.0 [facility] Comment on above: Performed By: #### C BC #### [facility] [address] [place] [address] ABD/PELV W CONon [...] RICCO PICKARD Date: 2022-10-05 13:13 Normal [facility] ER URINE PROFILEon 3 Bilirubin Ql (U) Negative Normal NEGATIVE [facility] Comment on above: Performed By: #### P OCGLUC #### [facility] [address] [place] [address] Dr. Ashlie Hills Clarity (U) CLEAR Normal CLEAR [facility] Comment on above: Performed By: #### P OCGLUC #### [facility] [address] [place] [address] Dr. Ashlie Hills Color (U) YELLOW Normal YELLOW [facility] Comment on above: Performed By: #### P OCGLUC #### [facility] [address] [place] [address] Dr. Ashlie HOBBS A micrscopic examination will be performed if indicated. Normal [facility] Comment on above: Performed By: #### P OCGLUC #### [facility] [address] [address] [address] Ashlie Hills Glucose Ql (U) Negative Normal NEGATIVE [facility] Comment on above: Performed By: #### P OCGLUC #### [facility] [address] [address] [address] Ashlie Hills Hemoglobin Ql (U) Negative Normal NEGATIVE [facility] Comment on above: Performed By: #### P OCGLUC #### [facility] [address] [address] [address] Ashlie Hills Ketones Ql (U) Negative Normal NEGATIVE [facility] Comment on above: Performed By: #### P OCGLUC #### [facility] [address] [place] [address] Dr. Ashlie Hills LEUKOCYTES Negative Normal NEGATIVE [facility] Comment on above: Performed By: #### P OCGLUC #### [facility] [address] [address] [address] Ashlie Hills Nitrite Ql (U) Negative Normal NEGATIVE [facility] Comment on above: Performed By: #### P OCGLUC #### [facility] [address] [place] [address] Dr. Ashlie Hills pH (U) 6.0 [pH] Normal 5-9 [facility] Comment on above: Performed By: #### P OCGLUC #### [facility] [address] [place] [address] Dr. Ashlie Hills Protein (U) [Mass/Vol] 100 mg/dL Abnormal NEGAT YURY/ TRACE [facility] Comment on above: Performed By: #### P OCGLUC #### [facility] [address] [place] [address] Dr. Ashlie Hills SPEC GRAVITY 1.010 Normal 1.005-<=1.025 [facility] Comment on above: Performed By: #### P OCGLUC #### [facility] [address] [address] [address] Ashlie Hills UR MICRO IND INDICATED Normal [facility] Comment on above: Performed By: #### P OCGLUC #### [facility] [address] [place] [address] Dr. Ashlie Hills Urobilinogen Qn (U) 1.0 {Little'U}/dL Normal 0.2 - 1. 0 [facility] Comment on above: Performed By: #### P OCGLUC #### [facility] [address] [place] [address] Dr. Ashlie Hills LIPASEon 10-05-2022 Lipase [Catalytic activity/Vol] 1771.0 U/L Critically high 73.0-393.0 [facility] Comment on above: Performed By: #### C BC #### [facility] [address] [place] [address] Dr. Ashlie Hills PREG HCG QUALon 10-05-2022 , QUAL Negative Normal NEGATIVE [facility] Comment on above: Performed By: #### P OCGLUC #### [facility] [address] [place] [address] Dr. Ashlie Hills PROF 14(COMP METB)on 023 Albumin [Mass/Vol] 3.2 g/dL Critically low 3.4-5.0 [facility] Comment on above: Performed By: #### C BC #### [facility] [address] [place] [address] Dr. Ashlie Hills Albumin/Globulin [Mass ratio] 0.7 {ratio} Normal [facility] Comment on above: Performed By: #### C BC #### [facility] [address] [place] [address] Dr. Ashlie Hills ALP [Catalytic activity/Vol] 70 U/L Normal 46-116 [facility] Comment on above: Performed By: #### C BC #### [facility] [address] [place] [address] Dr. Ashlie Hills ALT [Catalytic activity/Vol] 11 U/L Critically low 14-59 [facility] Comment on above: Performed By: #### C BC #### [facility] [address] [address] [address] Ashlie Hills Anion gap [Moles/Vol] 10.3 mmol/L Normal [facility] Comment on above: Performed By: #### C BC #### [facility] [address] [address] [address] Ashlie Hills AST [Catalytic activity/Vol] 11 U/L Critically low 15-37 [facility] Comment on above: Performed By: #### C BC #### [facility] [address] [address] [address] Ashlie Hills Bilirubin [Mass/Vol] 0.9 mg/dL Normal 0.2-1.0 [facility] Comment on above: Performed By: #### C BC #### [facility] [address] [place] [address] Dr. Ashlie Hills Calcium [Mass/Vol] 9.3 mg/dL Normal 8.5-10.1 [facility] Comment on above: Performed By: #### C BC #### [facility] [address] [place] [address] Dr. Ashlie Hills Chloride [Moles/Vol] 105 mmol/L Normal 98-107 [facility] Comment on above: Performed By: #### C BC #### [facility] [address] [place] [address] Dr. Ashlie Hills CO2 [Moles/Vol] 30.6 mmol/L Normal 21.0-32.0 [facility] Comment on above: Performed By: #### C BC #### [facility] [address] [place] [address] Dr. Ashlie Hills Creatinine [Mass/Vol] 0.62 mg/dL Normal 0.55-1.02 [facility] Comment on above: Performed By: #### C BC #### [facility] [address] [address] [address] Ashlie Hills EGFR-AF BELARUSIAN >60 Normal >=60 [facility] Comment on above: Performed By: #### C BC #### [facility] [address] [place] [address] Dr. Ashlie Hills EGFR-NON AF BELARUSIAN >60 Normal >=60 [facility] Comment on above: Performed By: #### C BC #### [facility] [address] [place] [address] Dr. Ashlie Hills Globulin (S) [Mass/Vol] 4.6 g/dL Normal [facility] Comment on above: Performed By: #### C BC #### [facility] [address] [place] [address] Dr. Ashlie Hills Glucose [Mass/Vol] 85 mg/dL Normal 74-106 [facility] Comment on above: Performed By: #### C BC #### [facility] [address] [place] [address] Dr. Ashlie Hills Potassium [Moles/Vol] 3.9 mmol/L Normal 3.5-5.1 [facility] Comment on above: Performed By: #### C BC #### [facility] [address] [place] [address] Dr. Ashlie Hills Protein [Mass/Vol] 7.8 g/dL Normal 6.4-8.2 [facility] Comment on above: Performed By: #### C BC #### [facility] [address] [place] [address] Dr. Ashlie Hills Sodium [Moles/Vol] 142 mmol/L Normal 136-145 [facility] Comment on above: Performed By: #### C BC #### [facility] [address] [place] [address] Dr. Ashlie Hills Urea nitrogen [Mass/Vol] 12.0 mg/dL Normal 7.0-18.0 [facility] Comment on above: Performed By: #### C BC #### [facility] [address] [place] [address] Dr. Ashlie Hills Urea nitrogen/Creatinine [Mass ratio] 19.4 mg/mg Normal [facility] Comment on above: Performed By: #### C BC #### [facility] [address] [place] [address] Dr. Ashlie Hills URINE MICROSCOPIC ONLYon BACTERIA TRACE Abnormal NONE SEEN [facility] Comment on above: Performed By: #### P OCGLUC #### [facility] [address] [place] [address] Dr. Ashlie Hills Bacteria identified Cx Nom (U) NOT INDICATED Normal [facility] Comment on above: Performed By: #### P OCGLUC #### [facility] [address] [place] [address] Dr. Ashlie Hills CAST NONE SEEN Normal NONE SEEN [facility] Comment on above: Performed By: #### P OCGLUC #### [facility] [address] [place] [address] Dr. Ashlie Hills Crystals LM Nom (Urine sed) NONE SEEN Normal NONE SEEN [facility] Comment on above: Performed By: #### P OCGLUC #### [facility] [address] [place] [address] Dr. Ashlie Hills Epithelial cells LM Ql (Urine sed) MODERATE Abnormal NONE SEEN /RARE [facility] Comment on above: Performed By: #### P OCGLUC #### [facility] [address] [place] [address] Dr. Ashlie Hills MUCOUS NONE SEEN Normal NONE SEEN [facility] Comment on above: Performed By: #### P OCGLUC #### [facility] [address] [place] [address] Dr. Ashlie Hills RBC 0-2 Normal 0-2 [facility] Comment on above: Performed By: #### P OCGLUC #### [facility] [address] [place] [address] Dr. Ashlie Hills WBC 0-2 Abnormal NONE SEEN [facility] Comment on above: Performed By: #### P OCGLUC #### [facility] [address] [place] [address] Dr. Ashlie Hills Covid-19 PCR ([facility])on 09-06 SARS-CoV-2 (COVID-19) RNA MADDY+probe Ql (Unsp spec) Detected Abnormal NOT DETECTED [facility] Comment on above: Result Comment: This test is not yet approved or cleared by the [place] FDA. When there are no FDA-approved or cleared tests available, and other criteria are met, FDA can make tests available under an emergency access mechanism called an Emergency Use Authorization (EUA). The EUA for this test is supported by the [place] of Health and Human Service's declaration that [...] used). Performed By: #### C VDAGS #### [facility] [address] [place] [address] Dr. Ashlie Hills IN[facility] Normal [facility] Comment on above: Result Comment: Nega tive for Flu A protein angiten. Infection due to Flu A cannot be ruled out. Flu A angiten in the sample may be below the detection limit of the test. Performed By: #### I NFLUAB #### [facility] [address] [place] [address] Dr. Ashlie Hills INFLUBNEG SEE BELOW Normal [facility] Comment on above: Result Comment: Nega tive for Flu B protein antigen. Infection due to Flu B cannot be ruled out. Flu B antigen in the sample may be below the detection limit of the test. Performed By: #### I NFLUAB #### [facility] [address] [place] [address] Dr. Ashlie Hills INFLUENZA A AG Negative Normal NEGATIVE SEE COMMENT [facility] Comment on above: Performed By: #### I NFLUAB #### [facility] [address] [place] [address] Dr. Ashlie Hills INFLUENZA B AG Negative Normal NEGATIVE SEE COMMENT [facility] Comment on above: Performed By: #### I NFLUAB #### [facility] [address] [place] [address] ABD/PELV W CONon [...] to at least 10/21/2018, unchanged. https://www.ncbi.nlm .nih.gov/pmc/article s/[email or web address]/ Electronically authenticated by: COLLIN HUERTAS Date: 2022-07-27 14:56 Normal [facility] CREATININEon 07-18-2022 Creatinine [Mass/Vol] 0.81 mg/dL Normal 0.55-1.02 [facility] Comment on above: Performed By: #### C BC #### [facility] [address] [place] [address] Dr. Ashlie Hills EGFR-AF BELARUSIAN >60 Normal >=60 [facility] Comment on above: Performed By: #### C BC #### [facility] [address] [place] [address] Dr. Ashlie Hills EGFR-NON AF BELARUSIAN >60 Normal >=60 [facility] Comment on above: Performed By: #### C BC #### [facility] [address] [place] [address] LOW EXT W [...] PATRICIA VELOZ Date: 2022-07-18 14:58 Normal [facility] XR KNEE LT 1_2 Von 3 [...] HATTIE BAUTISTA Date: 2022-07-18 12:00 Normal [facility] Covid-19 PCR ([facility])on 06-09 SARS-CoV-2 (COVID-19) RNA MADDY+probe Ql (Unsp spec) Not detected Normal NOT DETECTED [facility] Comment on above: Result Comment: This test is not yet approved or cleared by the [place] FDA. When there are no FDA-approved or cleared tests available, and other criteria are met, FDA can make tests available under an emergency access mechanism called an Emergency Use Authorization (EUA). The EUA for this test is supported by the [employer] of Health and Human Service's (HHS's) declaration [...] SARS-CoV-2. Performed By: #### C BC #### [facility] [address] [place] [address] Dr. Ashlie Hills INFLUENZA A AND B AGon 07-06 INFLUANE SEE BELOW Normal [facility] Comment on above: Result Comment: Nega tive for Flu A protein angiten. Infection due to Flu A cannot be ruled out. Flu A angiten in the sample may be below the detection limit of the test. Performed By: #### C BC #### [facility] [address] [place] [address] Dr. Ashlie Hills INFLUBNEG SEE BELOW Normal [facility] Comment on above: Result Comment: Nega tive for Flu B protein antigen. Infection due to Flu B cannot be ruled out. Flu B antigen in the sample may be below the detection limit of the test. Performed By: #### C BC #### [facility] [address] [place] [address] Dr. Ashlie Hills INFLUENZA A AG Negative Normal NEGATIVE SEE COMMENT [facility] Comment on above: Performed By: #### C BC #### [facility] [address] [place] [address] Dr. Ashlie Hills INFLUENZA B AG Negative Normal NEGATIVE SEE COMMENT [facility] Comment on above: Performed By: #### C BC #### [facility] [address] [place] [address] Dr. Ashlie Hills POINT OF CARE GLUCOSEon - Glucose [Mass/Vol] 108 mg/dL Critically high 74-106 [facility] Comment on above: Performed By: #### C BC #### [facility] [address] [place] [address] Dr. Ashlie Hills RAGHU by IFAon 03-07-2022 Antinuclear Antibodies, IFA Negative Normal [facility] Comment on above: Result Comment: Nega tive <1:80 Borderline 1:80 Positive >1:80 ICAP nomenclature: AC-0 For more information about Hep-2 cell patterns use ANApatterns.org, the official website for the International Consensus on Antinuclear Antibody (RAGHU) Patterns (ICAP). Performed By: #### A ROSE #### [facility] [address] [place] [address] Dr. Ashlie Hills IMMUNOFIXATION (TREVON), URINEo n 03-07-2022 TREVON Interpretation:U Comment Normal [facility] Comment on above: Result Comment: No m onoclonality detected. Performed By: #### C BC #### [facility] [address] [place] [address] Dr. Ashlie Hills IMMUNOFIXATION(TREVON),PROTEIN ELEC(PE),[facility] 03-07-2022 Albumin [Mass/Vol] 3.0 g/dL Normal 2.9-4.4 [facility] Comment on above: Performed By: #### I NFLUAB #### [facility] [address] [place] [address] Dr. Ashlie Hills Albumin/Globulin [Mass ratio] 0.8 {ratio} Normal 0.7-1.7 [facility] Comment on above: Performed By: #### I NFLUAB #### [facility] [address] [place] [address] Dr. Ashlie Hills Znuga-6-Vvlojqgv 0.3 g/dL Normal 0.0-0.4 [facility] Comment on above: Performed By: #### I NFLUAB #### [facility] [address] [place] [address] Dr. Ashlie Hills Nqveu-8-Zpvmvqrw 1.0 g/dL Normal 0.4-1.0 [facility] Comment on above: Performed By: #### I NFLUAB #### [facility] [address] [place] [address] Dr. Ashlie Hills Beta Globulin 1.8 g/dL Critically high 0.7-1.3 The [facility] Comment on above: Performed By: #### I NFLUAB #### [facility] [address] [place] [address] Dr. Ashlie Hills Free Angostura Lt Chains,S 45.2 mg/L Critically high 3.3-19.4 [facility] Comment on above: Performed By: #### I NFLUAB #### [facility] [address] [place] [address] Dr. Ashlie Hills Free Lambda Lt Chains,S 40.3 mg/L Critically high 5.7-26.3 [facility] Comment on above: Performed By: #### I NFLUAB #### [facility] [address] [address] [address] Ashlie Hills Gamma Globulin 0.8 g/dL Normal 0.4-1.8 [facility] Comment on above: Performed By: #### I NFLUAB #### [facility] [address] [place] [address] Dr. Ashlie Hills Globulin (S) [Mass/Vol] 3.9 g/dL Normal 2.2-3.9 [facility] Comment on above: Performed By: #### I NFLUAB #### [facility] [address] [place] [address] Dr. Ashlie Hills Immunofixation Result, Serum Comment Normal [facility] Comment on above: Result Comment: No m onoclonality detected. Performed By: #### I NFLUAB #### [facility] [address] [place] [address] Dr. Ashlie Hills Immunoglobulin A, Qn, Serum 776 mg/dL Critically high 87-352 [facility] Comment on above: Performed By: #### I NFLUAB #### [facility] [address] [place] [address] Dr. Ashlie Hills Immunoglobulin G, Qn, Serum 955 mg/dL Normal 586-1602 [facility] Comment on above: Performed By: #### I NFLUAB #### [facility] [address] [place] [address] Dr. Ashlie Hills Immunoglobulin M, Qn, Serum 39 mg/dL Normal 26-217 [facility] Comment on above: Performed By: #### I NFLUAB #### [facility] [address] [place] [address] Dr. Ashlie Hills Angostura/Lambda Ratio, S 1.12 Normal 0.26-1.65 [facility] Comment on above: Performed By: #### I NFLUAB #### [facility] [address] [place] [address] Dr. Ashlie Hills M-Bright Not Observed Normal Not Observed [facility] Comment on above: Performed By: #### I NFLUAB #### [facility] [address] [place] [address] Dr. Ashlie Hills PDF . Normal [facility] Comment on above: Performed By: #### I NFLUAB #### [facility] [address] [place] [address] Dr. Ashlie Hills Please note: Comment Normal [facility] Comment on above: Result Comment: Prot ein electrophoresis scan will follow via computer, mail, or contact lens polisher delivery. Performed By: #### I NFLUAB #### [facility] [facility] [address] [place] [address] Dr. Ashlie Hills Protein [Mass/Vol] 6.9 g/dL Normal 6.0-8.5 [facility] Comment on above: Performed By: #### I NFLUAB #### [facility] [address] [place] [address] Dr. Ashlie Hills C-PEPTIDE, SERUMon C-Peptide, Serum 3.1 ng/mL Normal 1.1-4.4 [facility] Comment on above: Result Comment: C-Pe ptide reference interval is for fasting patients. Performed By: #### C PEPT #### [facility] [address] [place] [address] Dr. Ashlie Hills HEP B SURFACE ANTIGEN SCREEN on 03-04-2022 HBsAg Screen Negative Normal Negative [facility] Comment on above: Performed By: #### C BC #### [facility] [address] [place] [address] Dr. Ashlie Hills HEPATITIS C VIRUS AB W/ REFL EX QUANTon 03-04-2022 HCV AB <0.1 Normal 0.0-0.9 [facility] Comment on above: Performed By: #### I NFLUAB #### [facility] [address] [address] [address] Ashlie Hills Interpretation: Comment Normal [facility] Comment on above: Result Comment: Nega tive Not infected with HCV, unless recent infection is suspected or other evidence exists to indicate HCV infection. Performed By: #### I NFLUAB #### [facility] [address] [address] [address] Ashlie Hills MICROALBUMIN/ CREATININE RAT IOon 03-04-2022 Albumin, Urine 367.4 ug/mL Normal Not Estab. The [facility] Comment on above: Performed By: #### C BC #### [facility] [address] [address] [address] Ashlie Hills Albumin/ Creatinine Ratio 239 mg/g creat Critically high 0-29 [facility] Comment on above: Result Comment: Norm al: 0 - 29 Moderately increased: 30 - 300 Severely increased: >300 Performed By: #### C BC #### [facility] [address] [address] [address] Ashlie Hills Creatinine, Urine 153.9 mg/dL Normal Not Estab. The [facility] Comment on above: Performed By: #### C BC #### [facility] [address] [address] [address] Ashlie Hills VIT D 25-OH LABCORPon 2021 Vitamin D, 25-Hydroxy <4.0 Critically low 30.0-100.0 [facility] Comment on above: Result Comment: Graciela min D deficiency has been defined by the [place] [employer] and an Endocrine Society practice guideline as a level of serum 25-OH vitamin D less than 20 ng/mL (1,2). The Endocrine Society went on to further define vitamin D insufficiency as a level between 21 and 29 ng/mL (2). 1. IOM ([place] [employer]). 2010. Dietary reference intakes for calcium and D. [place]: The National Academies Press. 2. Lynda MF, [place], Leandra LOPEZ, et al. Evaluation, treatment, and prevention of vitamin D deficiency: an Endocrine Society clinical practice guideline. JCEM. 2010; 96(7):1911-30. Performed By: #### C BC #### [facility] [address] [place] [address] Dr. Ashlie Hills GLYCOHEMOGLOBIN A1Con 2021 ADA RECOMMENDATION SEE BELOW Normal [facility] Comment on above: Result Comment: ADA RECOMMENDED LIMIT 4.0 - 6.0 ADA THERAPEUTIC TARGET < 7.0 ACTION SUGGESTED > 7.0 Performed By: #### C VDAGS #### [facility] [address] [place] [address] Dr. Ashlie Hills Glucose [Mass/Vol] 295 mg/dL Normal The [facility] Comment on above: Performed By: #### C VDAGS #### [facility] [address] [place] [address] Dr. Ashlie Hills HbA1c (Bld) [Mass fraction] 11.9 % Critically high 4.5-6.2 [facility] Comment on above: Performed By: #### C VDAGS #### [facility] [address] [place] [address] Dr. Ashlie Hills HEMOGRAM AND PLATELon 2021 Hematocrit (Bld) [Volume fraction] 56.3 % Critically high 36.0-48.0 [facility] Comment on above: Performed By: #### C VDAGS #### [facility] [address] [place] [address] Dr. Ashlie Hills Hemoglobin (Bld) [Mass/Vol] 18.0 g/dL Critically high 12.0-16.0 [facility] Comment on above: Performed By: #### C VDAGS #### [facility] [address] [place] [address] Dr. Ashlie Hills MCH (RBC) [Entitic mass] 29.5 pg Normal 26.7-34.0 [facility] Comment on above: Performed By: #### C VDAGS #### [facility] [address] [place] [address] Dr. Ashlie Hills MCHC (RBC) [Mass/Vol] 32.0 g/dL Normal 29.9-35.2 [facility] Comment on above: Performed By: #### C VDAGS #### [facility] [address] [address] [address] Ashlie Hills MCV (RBC) [Entitic vol] 92.1 fL Normal 81.0-99.0 [facility] Comment on above: Performed By: #### C VDAGS #### [facility] [address] [address] [address] Ashlie Hills PLT 123 103/ul Critically low 150-450 [facility] Comment on above: Performed By: #### C VDAGS #### [facility] [address] [address] [address] Ashlie Hills RBC 6.11 106/ul Critically high 4.20-5.40 [facility] Comment on above: Performed By: #### C VDAGS #### [facility] [address] [address] [address] Ashlie Hills WBC 16.4 103/ul Critically high 4.0-11.0 [facility] Comment on above: Performed By: #### C VDAGS #### [facility] [address] [address] [address] Ashlie Hills LIPID PROFILEon 03-03-2022 CHOL-HDL RATIO NORM SEE BELOW Normal [facility] Comment on above: Result Comment: 3.3 - 4.4 LOW RISK 4.4 - 7.1 AVERAGE RISK 7.1 - 11.0 MODERATE RISK >11.0 HIGH RISK Performed By: #### C VDAGS #### [facility] [address] [place] [address] Dr. Ashlie Hills Cholesterol [Mass/Vol] 159 mg/dL Normal <=200 [facility] Comment on above: Performed By: #### C VDAGS #### [facility] [address] [address] [address] Ashlie Hills Cholesterol in HDL [Mass/Vol] 40 mg/dL Normal 40-60 [facility] Comment on above: Performed By: #### C VDAGS #### [facility] [address] [address] [address] Ashlie Hills Cholesterol in LDL [Mass/Vol] 81.8 mg/dL Normal [facility] Comment on above: Performed By: #### C VDAGS #### [facility] [address] [address] [address] Ashlie Hills Cholesterol.total/Chol esterol in HDL [Mass ratio] 4.0 {ratio} Normal [facility] Comment on above: Performed By: #### C VDAGS #### [facility] [address] [address] [address] Ashlie Hills HDL NORMAL > or = 60 mg/dl - LOW CARDIOVASCULAR RISK <40 mg/dl - HIGH CARDIOVASCULAR RISK Normal [facility] Comment on above: Performed By: #### C VDAGS #### [facility] [address] [place] [address] Dr. Ashlie Hills LDL CALC NORMAL SEE BELOW Normal [facility] Comment on above: Result Comment: <100 mg/dl OPTIMAL 100 - 129 mg/dl NEAR OR ABOVE OPTIMAL 130 - 159 mg/dl BORDERLINE HIGH 160 - 189 mg/dl HIGH >190 mg/dl VERY HIGH Performed By: #### C VDAGS #### [facility] [address] [address] [address] Ashlie Hills Triglyceride [Mass/Vol] 186 mg/dL Critically high <=150 [facility] Comment on above: Performed By: #### C VDAGS #### [facility] [address] [address] [address] Ashlie Hills VLDL CALC 37.2 mg/dL Normal [facility] Comment on above: Performed By: #### C VDAGS #### [facility] [address] [address] [address] Ashlie Hills RENAL FUNCTION PANELon 03-03 Albumin [Mass/Vol] 3.1 g/dL Critically low 3.4-5.0 [facility] Comment on above: Performed By: #### C BC #### [facility] [address] [address] [address] Ashlie Hills Calcium [Mass/Vol] 9.2 mg/dL Normal 8.5-10.1 [facility] Comment on above: Performed By: #### C BC #### [facility] [address] [address] [address] Ashlie Hills Chloride [Moles/Vol] 102 mmol/L Normal 98-107 [facility] Comment on above: Performed By: #### C BC #### [facility] [address] [address] [address] Ashlie Hills CO2 [Moles/Vol] 31.9 mmol/L Normal 21.0-32.0 [facility] Comment on above: Performed By: #### C BC #### [facility] [address] [address] [address] Ashlie Hills Creatinine [Mass/Vol] 0.68 mg/dL Normal 0.55-1.02 [facility] Comment on above: Performed By: #### C BC #### [facility] [address] [place] [address] Dr. Ashlie Hills EGFR-AF BELARUSIAN >60 Normal >=60 [facility] Comment on above: Performed By: #### C BC #### [facility] [address] [place] [address] Dr. Ashlie Hills EGFR-NON AF BELARUSIAN >60 Normal >=60 [facility] Comment on above: Performed By: #### C BC #### [facility] [address] [place] [address] Dr. Ashlie Hills Glucose [Mass/Vol] 131 mg/dL Critically high 74-106 [facility] Comment on above: Performed By: #### C BC #### [facility] [address] [place] [address] Dr. Ashlie Hills Phosphate [Mass/Vol] 4.0 mg/dL Normal 2.6-4.7 [facility] Comment on above: Performed By: #### C BC #### [facility] [address] [place] [address] Dr. Ashlie Hills Potassium [Moles/Vol] 4.0 mmol/L Normal 3.5-5.1 [facility] Comment on above: Performed By: #### C BC #### [facility] [address] [place] [address] Dr. Ashlie Hills Sodium [Moles/Vol] 141 mmol/L Normal 136-145 [facility] Comment on above: Performed By: #### C BC #### [facility] [address] [place] [address] Dr. Ashlie Hills Urea nitrogen [Mass/Vol] 17.0 mg/dL Normal 7.0-18.0 [facility] Comment on above: Performed By: #### C BC #### [facility] [address] [place] [address] Dr. Ashlie Hills UA RANDOM W/MICROSCOPICon BACTERIA NONE SEEN Normal NONE SEEN [facility] Comment on above: Performed By: #### I NFLUAB #### [facility] [address] [place] [address] Dr. Ashlie Hills Bilirubin Ql (U) Negative Normal NEGATIVE [facility] Comment on above: Performed By: #### I NFLUAB #### [facility] [address] [place] [address] Dr. Ashlie Hills CAST NONE SEEN Normal NONE SEEN [facility] Comment on above: Performed By: #### I NFLUAB #### [facility] [address] [place] [address] Dr. Ashlie Hills Clarity (U) CLEAR Normal CLEAR [facility] Comment on above: Performed By: #### I NFLUAB #### [facility] [address] [place] [address] Dr. Ashlie Hills Color (U) YELLOW Normal YELLOW [facility] Comment on above: Performed By: #### I NFLUAB #### [facility] [address] [place] [address] Dr. Ashlie Hills Crystals LM Nom (Urine sed) NONE SEEN Normal NONE SEEN [facility] Comment on above: Performed By: #### I NFLUAB #### [facility] [address] [place] [address] Dr. Ashlie Hills Epithelial cells LM Ql (Urine sed) FEW Abnormal NONE SEEN /RARE [facility] Comment on above: Performed By: #### I NFLUAB #### [facility] [address] [address] [address] Ashlie Hills Glucose Ql (U) Negative Normal NEGATIVE [facility] Comment on above: Performed By: #### I NFLUAB #### [facility] [address] [address] [address] Ashlie Hills Hemoglobin Ql (U) Negative Normal NEGATIVE [facility] Comment on above: Performed By: #### I NFLUAB #### [facility] [address] [address] [address] Ashlie Hills Ketones Ql (U) Negative Normal NEGATIVE [facility] Comment on above: Performed By: #### I NFLUAB #### [facility] [address] [place] [address] Dr. Ashlie Hills LEUKOCYTES Negative Normal NEGATIVE [facility] Comment on above: Performed By: #### I NFLUAB #### [facility] [address] [place] [address] Dr. Ashlie Hills MUCOUS NONE SEEN Normal NONE SEEN [facility] Comment on above: Performed By: #### I NFLUAB #### [facility] [address] [address] [address] Ashlie Hills Nitrite Ql (U) Negative Normal NEGATIVE [facility] Comment on above: Performed By: #### I NFLUAB #### [facility] [address] [place] [address] Dr. Ashlie Hills pH (U) 5.5 [pH] Normal 5-9 [facility] Comment on above: Performed By: #### I NFLUAB #### [facility] [address] [place] [address] Dr. Ashlie Hills RBC 0-2 Normal 0-2 [facility] Comment on above: Performed By: #### I NFLUAB #### [facility] [address] [place] [address] Dr. Ashlie Hills SPEC GRAVITY >=1.030 Abnormal 1.005-<=1.025 [facility] Comment on above: Performed By: #### I NFLUAB #### [facility] [address] [address] [address] Ashlie Hills UA PROTEIN 100 mg/dl Abnormal NEGATIVE/ TRACE [facility] Comment on above: Performed By: #### I NFLUAB #### [facility] [address] [place] [address] Dr. Ashlie Hills Urobilinogen Qn (U) 0.2 {Little'U}/dL Normal 0.2 - 1. 0 [facility] Comment on above: Performed By: #### I NFLUAB #### [facility] [address] [address] [address] Ashlie Hills WBC NONE SEEN Normal NONE SEEN [facility] Comment on above: Performed By: #### I NFLUAB #### [facility] [address] [place] [address] Dr. Ashlie Hills URIC ACID SERUMon 03-03-2022 Urate [Mass/Vol] 5.0 mg/dL Normal 2.6-6.0 [facility] Comment on above: Performed By: #### I NFLUAB #### [facility] [address] [place] [address] Dr. Ashlie Hills URINE T PROTEIN CREAT RATIOo n 03-03-2022 Protein (U) [Mass/Vol] 77.9 mg/dL Critically high <=12.0 [facility] Comment on above: Performed By: #### C VDAGS #### [facility] [address] [place] [address] Dr. Ashlie Hills UR PROT CREAT RAT 0.44 Normal [facility] Comment on above: Performed By: #### C VDAGS #### [facility] [address] [place] [address] Dr. Ashlie Hills URINE CREAT 175.15 mg/dL Normal 20.00-300.00 [facility] Comment on above: Performed By: #### C VDAGS #### [facility] [address] [place] [address] Dr. Ashlie Hills CULTURE URINEon 12-25-2021 CULTURE URINE Culture Observations: GREATER THAN TWO ORGANISMS PRESENT, HEAVILY MIXED. PLEASE RESUBMIT CLEAN CATCH MID-STREAM URINE IF CLINICALLY INDICATED. Normal [facility] Comment on above: Performed By: #### I NFLUAB #### [facility] [address] [place] [address] Dr. Ashlie Hills CBC AUTO DIFFon 12-24-2021 BASO # 0.1 103/ul Normal 0.0-0.1 [facility] Comment on above: Performed By: #### C BC #### [facility] [address] [place] [address] Dr. Ashlie Hills Basophils/100 WBC (Bld) 0.5 % Normal 0.2-2.0 [facility] Comment on above: Performed By: #### C BC #### [facility] [address] [place] [address] Dr. Ashlie Hills EO # 0.4 103/ul Normal 0.0-0.7 [facility] Comment on above: Performed By: #### C BC #### [facility] [address] [place] [address] Dr. Ashlie Hills Eosinophils/100 WBC (Bld) 2.4 % Normal 0.9-7.0 [facility] Comment on above: Performed By: #### C BC #### [facility] [address] [place] [address] Dr. Ashlie Hills Erythrocyte distribution width (RBC) [Ratio] 14.1 % Normal 11.0-15.0 [facility] Comment on above: Performed By: #### C BC #### [facility] [address] [place] [address] Dr. Ashlie Hills Hematocrit (Bld) [Volume fraction] 55.9 % Critically high 36.0-48.0 [facility] Comment on above: Performed By: #### C BC #### [facility] [address] [place] [address] Dr. Ashlie Hills Hemoglobin (Bld) [Mass/Vol] 17.9 g/dL Critically high 12.0-16.0 [facility] Comment on above: Performed By: #### C BC #### [facility] [address] [place] [address] Dr. Ashlie Hills IG # 0.06 10e3/ul Critically high 0.00-0.03 [facility] Comment on above: Performed By: #### C BC #### [facility] [address] [place] [address] Dr. Ashlie Hills IG % 0.4 % Normal 0.0-0.5 [facility] Comment on above: Performed By: #### C BC #### [facility] [address] [place] [address] Dr. Ashlie Hills LYMPH # 5.8 103/ul Critically high 1.2-3.8 [facility] Comment on above: Performed By: #### C BC #### [facility] [address] [place] [address] Dr. Ashlie Hills Lymphocytes/100 WBC (Bld) 35.4 % Normal 20.5-60.0 [facility] Comment on above: Performed By: #### C BC #### [facility] [address] [place] [address] Dr. Ashlie Hills MANUAL DIFF REQ NO Normal [facility] Comment on above: Performed By: #### C BC #### [facility] [address] [place] [address] Dr. Ashlie Hills MCH (RBC) [Entitic mass] 29.4 pg Normal 26.7-34.0 [facility] Comment on above: Performed By: #### C BC #### [facility] [address] [place] [address] Dr. Ashlie Hills MCHC (RBC) [Mass/Vol] 32.0 g/dL Normal 29.9-35.2 [facility] Comment on above: Performed By: #### C BC #### [facility] [address] [place] [address] Dr. Ashlie Hills MCV (RBC) [Entitic vol] 91.8 fL Normal 81.0-99.0 [facility] Comment on above: Performed By: #### C BC #### [facility] [address] [place] [address] Dr. Ashlie Hills MONO # 0.8 103/ul Normal 0.3-0.8 [facility] Comment on above: Performed By: #### C BC #### [facility] [address] [place] [address] Dr. Ashlie Hills Monocytes/100 WBC (Bld) 4.8 % Normal 1.7-12.0 [facility] Comment on above: Performed By: #### C BC #### [facility] [address] [place] [address] Dr. Ashlie Hills NEUT # 9.3 103/ul Critically high 1.4-6.5 [facility] Comment on above: Performed By: #### C BC #### [facility] [address] [place] [address] Dr. Ashlie Hills Neutrophils/100 WBC (Bld) 56.5 % Normal 43.0-75.0 [facility] Comment on above: Performed By: #### C BC #### [facility] [address] [place] [address] Dr. Ashlie Hills Platelet mean volume (Bld) [Entitic vol] 12.9 fL Normal 9.5-13.5 [facility] Comment on above: Performed By: #### C BC #### [facility] [address] [place] [address] Dr. Ashlie Hills PLT 127 103/ul Critically low 150-450 [facility] Comment on above: Performed By: #### C BC #### [facility] [address] [place] [address] Dr. Ashlie Hills RBC 6.09 106/ul Critically high 4.20-5.40 [facility] Comment on above: Performed By: #### C BC #### [facility] [address] [place] [address] Dr. Ashlie Hills WBC 16.4 103/ul Critically high 4.0-11.0 [facility] Comment on above: Performed By: #### C BC #### [facility] [address] [place] [address] ABD/PELVIS WO CONon [...] Severe right hip degenerative change. Normal [facility] ER URINE PROFILEon 2 Bilirubin Ql (U) Negative Normal NEGATIVE [facility] Comment on above: Performed By: #### Tracey LYMAN UMICRO #### [facility] [address] [place] [address] Dr. Ashlie Hills Clarity (U) CLEAR Normal CLEAR [facility] Comment on above: Performed By: #### Tracey LYMAN UMICRO #### [facility] [address] [place] [address] Dr. Ashlie Hills Color (U) DK. ORANGE Abnormal YELLOW [facility] Comment on above: Performed By: #### Tracey LYMAN UMICRO #### [facility] [address] [place] [address] Dr. Ashlie HOBBS A micrscopic examination will be performed if indicated. Normal [facility] Comment on above: Performed By: #### Tracey LYMAN UMICRO #### [facility] [address] [place] [address] Dr. Ashlie Hills Glucose Ql (U) 250 mg/dl Abnormal NEGATIVE [facility] Comment on above: Performed By: #### Tracey LYMAN UMICRO #### [facility] [address] [place] [address] Dr. Ashlie Hills Hemoglobin Ql (U) Negative Normal NEGATIVE [facility] Comment on above: Performed By: #### Tracey LYMAN UMICRO #### [facility] [address] [address] [address] Ashlie Hills Ketones Ql (U) Negative Normal NEGATIVE [facility] Comment on above: Performed By: #### Tracey LYMAN UMICRO #### [facility] [address] [place] [address] Dr. Ashlie Hills LEUKOCYTES Negative Normal NEGATIVE [facility] Comment on above: Performed By: #### E RUR, UMICRO #### [facility] [address] [place] [address] Dr. Ashlie Hills Nitrite Ql (U) Negative Normal NEGATIVE [facility] Comment on above: Performed By: #### E NURA, UMICRO #### [facility] [address] [place] [address] Dr. Ashlie Hills pH (U) 5.0 [pH] Normal 5-9 [facility] Comment on above: Performed By: #### E NURA, UMICRO #### [facility] [address] [place] [address] Dr. Ashlie Hills Protein (U) [Mass/Vol] 100 mg/dL Abnormal NEGAT YURY/ TRACE [facility] Comment on above: Performed By: #### Tracey LYMAN, UMICRO #### [facility] [address] [place] [address] Dr. Ashlie Hills SPEC GRAVITY >=1.030 Abnormal 1.005-<=1.025 [facility] Comment on above: Performed By: #### Tracey LYMAN, UMICRO #### [facility] [address] [place] [address] Dr. Ashlie Hills UR MICRO IND INDICATED Normal [facility] Comment on above: Performed By: #### Tracey LYMAN, UMICRO #### [facility] [facility] [address] [place] [address] Dr. Ashlie Hills Urobilinogen Qn (U) 1.0 {Little'U}/dL Normal 0.2 - 1. 0 [facility] Comment on above: Performed By: #### Tracey LYMAN, UMICRO #### [facility] [address] [place] [address] Dr. Ashlie Hills PROF CHEM 8 (BAS METB)on Anion gap [Moles/Vol] 12.1 mmol/L Normal [facility] Comment on above: Performed By: #### I NFLUAB #### [facility] [address] [place] [address] Dr. Ashlie Hills Calcium [Mass/Vol] 9.0 mg/dL Normal 8.5-10.1 The [facility] Comment on above: Performed By: #### I NFLUAB #### [facility] [address] [address] [address] Ashlie Hills Chloride [Moles/Vol] 101 mmol/L Normal 98-107 [facility] Comment on above: Performed By: #### I NFLUAB #### [facility] [address] [address] [address] Ashlie Hills CO2 [Moles/Vol] 29.1 mmol/L Normal 21.0-32.0 [facility] Comment on above: Performed By: #### I NFLUAB #### [facility] [address] [place] [address] Dr. Ashlie Hills Creatinine [Mass/Vol] 0.86 mg/dL Normal 0.55-1.02 [facility] Comment on above: Performed By: #### I NFLUAB #### [facility] [address] [address] [address] Ashlie Hills EGFR-AF BELARUSIAN >60 Normal >=60 [facility] Comment on above: Performed By: #### I NFLUAB #### [facility] [address] [place] [address] Dr. Ashlie Hills EGFR-NON AF BELARUSIAN >60 Normal >=60 [facility] Comment on above: Performed By: #### I NFLUAB #### [facility] [address] [address] [address] Ashlie Hills Glucose [Mass/Vol] 236 mg/dL Critically high 74-106 [facility] Comment on above: Performed By: #### I NFLUAB #### [facility] [address] [address] [address] Ashlie Hills Potassium [Moles/Vol] 4.2 mmol/L Normal 3.5-5.1 [facility] Comment on above: Performed By: #### I NFLUAB #### [facility] [address] [address] [address] Ashlie Hills Sodium [Moles/Vol] 138 mmol/L Normal 136-145 [facility] Comment on above: Performed By: #### I NFLUAB #### [facility] [address] [place] [address] Dr. Ashlie Hills Urea nitrogen [Mass/Vol] 11.0 mg/dL Normal 7.0-18.0 [facility] Comment on above: Performed By: #### I NFLUAB #### [facility] [address] [place] [address] Dr. Ashlie Hills Urea nitrogen/Creatinine [Mass ratio] 12.8 mg/mg Normal [facility] Comment on above: Performed By: #### I NFLUAB #### [facility] [address] [place] [address] Dr. Ashlie Hills URINE MICROSCOPIC ONLYon BACTERIA SMALL Abnormal NONE SEEN [facility] Comment on above: Performed By: #### E RUR, UMICRO #### [facility] [address] [place] [address] Dr. Ashlie Hills Bacteria identified Cx Nom (U) INDICATED Normal [facility] Comment on above: Performed By: #### E RUR, UMICRO #### [facility] [address] [place] [address] Dr. Ashlie Hills CAST NONE SEEN Normal NONE SEEN [facility] Comment on above: Performed By: #### E RUR, UMICRO #### [facility] [address] [place] [address] Dr. Ashlie Hills Crystals LM Nom (Urine sed) NONE SEEN Normal NONE SEEN [facility] Comment on above: Performed By: #### E RUR, UMICRO #### [facility] [address] [place] [address] Dr. Ashlie Hills Epithelial cells LM Ql (Urine sed) MODERATE Abnormal NONE SEEN /RARE [facility] Comment on above: Performed By: #### E RUR, UMICRO #### [facility] [address] [place] [address] Dr. Ashlie Hills MUCOUS NONE SEEN Normal NONE SEEN [facility] Comment on above: Performed By: #### E RUR, UMICRO #### [facility] [address] [address] [address] Ashlie Hills RBC 0-2 Normal 0-2 [facility] Comment on above: Performed By: #### E RUR UMICRO #### [facility] [address] [address] [address] Ashlie Hills WBC 0-2 Abnormal NONE SEEN [facility] Comment on above: Performed By: #### E RUR UMICRO #### [facility] [address] [address] [address] Ashlie Hills YEAST PRESENT Abnormal NONE SEEN [facility] Comment on above: Performed By: #### E NURA UMICRO #### [facility] [address] [address] [address] Ashlie Hills HIP RIGHT 1 OR 2 VWS WITH PE LVISon 07-20-2020 HIP RIGHT 1 OR 2 VWS WITH PELVIS [facility] Department of Radiology [address] [place] [id number] Patient Name: MITZI MACIAS : 1970 [...] MRI. Electronically signed: Pipo Acevedo. Transcribed by: [email or web address], User Resident: Electronically Signed by: PIPO ACEVEDO @ 07/20/2020 03:45 PM Normal [facility] Comment on above: Order Comment: evalu ate Vital Signs Date Time Vital Sign Value Performing Clinician Facility 01-29-2025 09:48-0400 Body height 170.2 cm Rain Souza MD Work Phone: [facility] 01-29-2025 09:48-0400 Body mass index (BMI) [Ratio] 56.38 kg/m2 Rain Souza MD Work Phone: [facility] 01-29-2025 09:48-0400 Body weight 163.29 kg Rain Souza MD Work Phone: [facility] 01-29-2025 09:48-0400 Diastolic blood pressure 70 mm[Hg] Rain Souza MD Work Phone: [facility] 01-29-2025 09:48-0400 Heart rate 72 /min Rain Souza MD Work Phone: [facility] 01-29-2025 09:48-0400 Respiratory rate 16 /min Rain Souza MD Work Phone: [facility] 01-29-2025 09:48-0400 SaO2% (BldA) [Mass fraction] 84 % Rain Souza MD Work Phone: [facility] 01-29-2025 09:48-0400 Systolic blood pressure 130 mm[Hg] Rain Souza MD Work Phone: [facility] 01-26-2025 18:11-0400 Body mass index (BMI) [Ratio] 58.64 kg/m2 Mckayla Aichholz WIRE CHARGER Work Phone: [facility] 01-26-2025 18:11-0400 Body temperature 98.49 [degF] Mckayla Aichholz WIRE CHARGER Work Phone: [facility] 01-26-2025 18:11-0400 Body weight 169.83 kg Mckayla Aichholz WIRE CHARGER Work Phone: [facility] 01-26-2025 18:11-0400 Diastolic blood pressure 82 mm[Hg] Mckayla Aichholz WIRE CHARGER Work Phone: [facility] 01-26-2025 18:11-0400 Heart rate 81 /min Mckayla Aichholz WIRE CHARGER Work Phone: [facility] 01-26-2025 18:11-0400 Respiratory rate 20 /min Mckayla Aichholz WIRE CHARGER Work Phone: [facility] 01-26-2025 18:11-0400 SaO2% (BldA) [Mass fraction] 90 % Mckayla Aichholz WIRE CHARGER Work Phone: [facility] 01-26-2025 18:11-0400 Systolic blood pressure 126 mm[Hg] Mckayla Aichholz WIRE CHARGER Work Phone: [facility] 12-09-2024 10:19-0400 Body temperature 98.01 [degF] Mckayla Aichholz WIRE CHARGER Work Phone: [facility] 12-09-2024 10:19-0400 Diastolic blood pressure 76 mm[Hg] Mckayla Aichholz WIRE CHARGER Work Phone: [facility] 12-09-2024 10:19-0400 Heart rate 71 /min Mckayla Aichholz WIRE CHARGER Work Phone: [facility] 12-09-2024 10:19-0400 Respiratory rate 20 /min Mckayla Aichholz WIRE CHARGER Work Phone: [facility] 12-09-2024 10:19-0400 SaO2% (BldA) [Mass fraction] 88 % Mckaylajuvenal Rosenbergz WIRE CHARGER Work Phone: [facility] 12-09-2024 10:19-0400 Systolic blood pressure 150 mm[Hg] Mckayla Juanjosehholz WIRE CHARGER Work Phone: [facility] 10-27-2024 14:11-0400 Body height 170.2 cm Mckayla Juanjosehholz WIRE CHARGER Work Phone: [facility] 10-27-2024 14:11-0400 Body mass index (BMI) [Ratio] 56.51 kg/m2 Mckayla Juanjosehholz WIRE CHARGER Work Phone: [facility] 10-27-2024 14:11-0400 Body temperature 98.71 [degF] Mckayla Juanjosehholz WIRE CHARGER Work Phone: [facility] 10-27-2024 14:11-0400 Body weight 163.66 kg Mckayla Juanjosehholz WIRE CHARGER Work Phone: [facility] 10-27-2024 14:11-0400 Diastolic blood pressure 74 mm[Hg] Mckayla Juanjosehholz WIRE CHARGER Work Phone: [facility] 10-27-2024 14:11-0400 Heart rate 75 /min Mckayla Aichholz WIRE CHARGER Work Phone: [facility] 10-27-2024 14:11-0400 Respiratory rate 18 /min Mckayla Juanjosehholz WIRE CHARGER Work Phone: [facility] 10-27-2024 14:11-0400 SaO2% (BldA) [Mass fraction] 90 % Mckayla Juanjosehholz WIRE CHARGER Work Phone: [facility] 10-27-2024 14:11-0400 Systolic blood pressure 132 mm[Hg] Mckayla Aichholz WIRE CHARGER Work Phone: [facility] 10-08-2024 11:21-0400 Body height 170.2 cm Rain Souza MD Work Phone: [facility] 10-08-2024 11:21-0400 Body mass index (BMI) [Ratio] 55.91 kg/m2 Rain Souza MD Work Phone: [facility] 10-08-2024 11:21-0400 Body weight 161.93 kg Rain Souza MD Work Phone: [facility] 10-08-2024 11:21-0400 Diastolic blood pressure 70 mm[Hg] Rain Souza MD Work Phone: [facility] 10-08-2024 11:21-0400 Heart rate 70 /min Rain Souaz MD Work Phone: [facility] 10-08-2024 11:21-0400 Respiratory rate 16 /min Rain Souza MD Work Phone: [facility] 10-08-2024 11:21-0400 SaO2% (BldA) [Mass fraction] 91 % Rain Souza MD Work Phone: [facility] 10-08-2024 11:21-0400 Systolic blood pressure 130 mm[Hg] Rain Souza MD Work Phone: [facility] 08-27-2024 17:44-0500 Body mass index (BMI) [Ratio] 57.31 kg/m2 Mckayla Blas WIRE CHARGER Work Phone: [facility] 08-27-2024 17:44-0500 Body temperature 98.01 [degF] Mckayla Blas WIRE CHARGER Work Phone: [facility] 08-27-2024 17:44-0500 Body weight 165.97 kg Mckayla Blas WIRE CHARGER Work Phone: [facility] 08-27-2024 17:44-0500 Diastolic blood pressure 76 mm[Hg] Mckayla Blas WIRE CHARGER Work Phone: [facility] 08-27-2024 17:44-0500 Heart rate 83 /min Mckayla Blas WIRE CHARGER Work Phone: [facility] 08-27-2024 17:44-0500 Respiratory rate 18 /min Mckayla Patriciamariyatalia WIRE CHARGER Work Phone: [facility] 08-27-2024 17:44-0500 SaO2% (BldA) [Mass fraction] 91 % Mckayla Patriciajodie WIRE CHARGER Work Phone: [facility] 08-27-2024 17:44-0500 Systolic blood pressure 134 mm[Hg] Mckayla Patriciajodie WIRE CHARGER Work Phone: [facility] 06-11-2024 10:00-0500 Blood Pressure Location Elbert ARAUZ [facility] 06-11-2024 10:00-0500 Diastolic blood pressure 68 mm[Hg] Elbert ARAUZ [facility] 06-11-2024 10:00-0500 Heart rate 76 /min Elbert ARAUZ [facility] 06-11-2024 10:00-0500 Systolic blood pressure 132 mm[Hg] Elbert ARAUZ [facility] 05-27-2024 10:20-0500 Body height 170.2 cm Rain Souza MD Work Phone: [facility] 05-27-2024 10:20-0500 Body mass index (BMI) [Ratio] 56.7 kg/m2 Rain Souza MD Work Phone: [facility] 05-27-2024 10:20-0500 Body weight 164.2 kg Rain Souza MD Work Phone: [facility] 05-27-2024 10:20-0500 Diastolic blood pressure 66 mm[Hg] Rain Souza MD Work Phone: [facility] 05-27-2024 10:20-0500 Heart rate 72 /min Rain Souza MD Work Phone: [facility] 05-27-2024 10:20-0500 Respiratory rate 16 /min Rain Souza MD Work Phone: [facility] 05-27-2024 10:20-0500 Systolic blood pressure 128 mm[Hg] Rain Souza MD Work Phone: [facility] 04-14-2024 10:27-0400 Body height 165.1 cm Mckayla Aichholz WIRE CHARGER Work Phone: [facility] 04-14-2024 10:27-0400 Body mass index (BMI) [Ratio] 61.01 kg/m2 Mckayla Aichholz WIRE CHARGER Work Phone: [facility] 04-14-2024 10:27-0400 Body temperature 98.49 [degF] Mckayla Aichholz WIRE CHARGER Work Phone: [facility] 04-14-2024 10:27-0400 Body weight 166.29 kg Mckayla Aichholz WIRE CHARGER Work Phone: [facility] 04-14-2024 10:27-0400 Diastolic blood pressure 80 mm[Hg] Mckayla Aichholz WIRE CHARGER Work Phone: [facility] 04-14-2024 10:27-0400 Heart rate 77 /min Mckayla Aichholz WIRE CHARGER Work Phone: [facility] 04-14-2024 10:27-0400 Respiratory rate 19 /min Mckayla Aichholz WIRE CHARGER Work Phone: [facility] 04-14-2024 10:27-0400 SaO2% (BldA) [Mass fraction] 92 % Mckayla Aichholz WIRE CHARGER Work Phone: [facility] 04-14-2024 10:27-0400 Systolic blood pressure 116 mm[Hg] Mckayla Aichholz WIRE CHARGER Work Phone: [facility] 03-08-2022 15:00-0400 Body height 170.18 cm Stephanie Tico Other [employer] Other 03-08-2022 15:00-0400 Body temperature 97.6 [degF] Stephanie Tico Other [employer] Other 03-08-2022 15:00-0400 Diastolic blood pressure 72 mm[Hg] Stephanie Tico Other [employer] Other 03-08-2022 15:00-0400 Respiratory rate 20 /min Stephanie Tico Other [employer] Other 03-08-2022 15:00-0400 SaO2% (BldA) [Mass fraction] 91 % Stephanie Tico Other [employer] Other 03-08-2022 15:00-0400 Systolic blood pressure 131 mm[Hg] Stephanie Tico Other [employer] Other 02-20-2022 09:20-0400 Body height 170.18 cm Stephanie Tico Other [employer] Other 02-20-2022 09:20-0400 Body temperature 96.5 [degF] Stephanie Tico Other [employer] Other 02-20-2022 09:20-0400 Diastolic blood pressure 69 mm[Hg] Stephanie Tico Other [employer] Other 02-20-2022 09:20-0400 Respiratory rate 20 /min Stephanie Tico Other [employer] Other 02-20-2022 09:20-0400 SaO2% (BldA) [Mass fraction] 91 % Stephanie Tico Other [employer] Other 02-20-2022 09:20-0400 Systolic blood pressure 129 mm[Hg] Stephanie Tico Other [employer] Other 02-06-2022 10:24-0400 Blood Pressure Location [employer]bert [employer] [facility] [employer] 02-06-2022 10:24-0400 Diastolic blood pressure 76 mm[Hg] Elbert ARAUZ [facility] 02-06-2022 10:24-0400 Heart rate 70 /min [facility] 02-06-2022 10:24-0400 Respiratory rate 16 /min [facility] 02-06-2022 10:24-0400 Systolic blood pressure 134 mm[Hg] Elbert ARAUZ [facility] Encounters Encounter Date Encounter Type Care Provider Facility Start: 04-17-2025 ambulatory Omero Nas Negrita use [employer] PROFESSIONAL Facility:[facility] Start: 03-24-2025 ambulatory Corinne Kellogg MD Facility:[facility] Start: 03-23-2025 End: 03-23-2025 ambulatory Omero Nas Bob [employer] PROFESSIONAL Facility:[facility] Start: 03-11-2025 End: 03-11-2025 ambulatory Flynn Urias DPM Facility:[facility] Start: 03-09-2025 End: 03-09-2025 Refill Mckayla Blas NP Work Phone: [facility] Comment on above: Tobacco user; Encounter for smoking cessation counseling Start: 01-29-2025 End: 01-29-2025 Bamboo flowsheet Rain Souza MD Work Phone: [facility] Start: 01-29-2025 End: 01-29-2025 Bamboo flowsheet Rain Souza MD Work Phone: [facility] Start: 01-29-2025 End: 01-29-2025 Clinisync Result Encounter Generic External Data Provider [facility] External Department Unsolicited Start: 01-29-2025 End: 01-29-2025 ambulatory RAIN SOUZA Not Available Start: 01-29-2025 End: 01-29-2025 Office outpatient visit 25 minutes Rain Souza MD Work Phone: [facility] Comment on above: Encounter for dietar y consultation (Primary Dx); Type 2 diabetes mellitus with hyperglycemia, with long-term current use of insulin ([facility]); Vitamin D deficiency; Primary hypertension ; Insulin long-term use ([facility]); Hyperlipemia, mixed ; Microalbuminuria; Class 3 severe obesity due to excess calories with serious comorbidity and body mass index (BMI) of 50.0 to 59.9 in adult ([facility]) Start: 01-26-2025 End: 01-26-2025 ambulatory MCKAYLA BLAS Not Available Start: 01-26-2025 End: 01-26-2025 Patient encounter procedure Mckayla Blas NP Work Phone: [facility] Comment on above: Encounter for subseq [...] (CMS-HCC) Start: 01-06-2025 End: 01-06-2025 ambulatory [facility] Start: 12-18-2024 End: 12-19-2024 Refill Mckayla Blas WIRE CHARGER Work Phone: [facility] Comment on above: Hyperlipidemia, unsp ecified ; Tobacco user; Encounter for smoking cessation counseling Start: 12-09-2024 End: 12-09-2024 Bamboo flowsheet Mckayla Blas WIRE CHARGER Work Phone: [facility] Start: 12-09-2024 End: 12-09-2024 Bamboo flowsheet Mckayla Blas WIRE CHARGER Work Phone: [facility] Start: 12-09-2024 End: 12-09-2024 ambulatory MCKAYLA BLAS Not Available Start: 12-09-2024 End: 12-09-2024 Office outpatient visit 25 minutes Mckayla Blas WIRE CHARGER Work Phone: [facility] Comment on above: Cellulitis of left [...] minutes Mckayla Blas NP Work Phone: [facility] Comment on above: Primary hypertension ([facility]/HCC) (Primary Dx); Diabetic polyneuropathy associated with type 2 diabetes mellitus ([facility]); Chronic diastolic heart failure ([facility]); Bilateral lower extremity edema; Morbid (severe) obesity due to excess calories ([facility]); Type 2 diabetes mellitus with complication, with long-term current use of insulin ([facility]); Anxiety and depression ([facility]); Cigarette nicotine dependence without complication; Encounter for screening mammogram for malignant neoplasm of breast; Insomnia; Non-seasonal allergic rhinitis, unspecified trigger; Type 2 diabetes mellitus with unspecified complications; Vitamin D deficiency, unspecified; Gastro-esophageal reflux disease without esophagitis; PAD (peripheral artery disease) ([facility]); Gastroesophageal reflux disease, unspecified whether esophagitis present; Venous ulcer of right leg ([facility]) Start: 10-21-2024 End: 10-21-2024 Refill [facility] Blas [facility] Comment on above: Chronic obstructive pulmonary disease, unspecified Start: 10-08-2024 End: 10-08-2024 Clinisync Result Encounter Mckayla Blas NP Work Phone: [facility] External Department Unsolicited Start: 10-08-2024 End: 10-08-2024 Clinisync Result Encounter Mckayla Blas WIRE CHARGER Work Phone: [facility] External Department Unsolicited Start: 10-08-2024 End: 10-08-2024 Office outpatient visit 25 minutes Rain Souza MD [facility] Comment on above: Type 2 diabetes asiya itus with hyperglycemia, with long-term current use of insulin ([facility]) (Primary Dx); Encounter for dietary consultation; Vitamin D deficiency; Primary hypertension ([facility]); Insulin long-term use (CMS/HCC); Hyperlipemia, mixed [...] Department Unsolicited Start: 08-08-2024 End: 08-08-2024 ambulatory [facility] Start: 07-17-2024 End: 07-17-2024 Refill Mckayla Blas WIRE CHARGER Work Phone: [facility] Start: 07-14-2024 End: 07-14-2024 Office outpatient visit 25 minutes Mckayla Blas WIRE CHARGER Work Phone: [facility] Comment on above: Primary hypertension (CMS/HCC) [...] complication, with long-term current use of insulin ([facility]); Tobacco user; Encounter for smoking cessation counseling; Kidney stone; Adrenal mass 1 cm to 4 cm in diameter ([facility]); Radiculopathy, lumbar region; Non-seasonal allergic rhinitis, unspecified trigger; Type 2 diabetes mellitus with unspecified complications ([facility]/HCC) Start: 07-14-2024 End: 07-14-2024 ambulatory MCKAYLA BLAS Not Available Start: 07-05-2024 End: 07-07-2024 Refill Mckayla Blas WIRE CHARGER Work Phone: [facility] Comment on above: Bilateral lower extr emity edema Start: 06-11-2024 ambulatory Elbert Maysi ty:SHEA Mckee Start: 06-11-2024 End: 06-11-2024 Patient encounter procedure Elbert ARAUZ [facility] Start: 05-27-2024 End: 05-27-2024 Bamboo flowsheet Rain Souza MD Work Phone: [facility] Start: 05-27-2024 End: 05-27-2024 Bamboo flowsheet Rain Souza MD Work Phone: [facility] Start: 05-27-2024 End: 05-27-2024 ambulatory AHMAD [...] 04-14-2024 End: 04-14-2024 Bamboo flowsheet Mckayla Blas WIRE CHARGER Work Phone: [facility] Start: 04-14-2024 End: 04-14-2024 Bamboo flowsheet Mckayla Blas WIRE CHARGER Work Phone: [facility] Start: 04-14-2024 End: 04-14-2024 Office outpatient visit 25 minutes Mckayla Blas NP Work Phone: [facility] Comment on above: Primary hypertension (CMS/HCC) (Primary Dx); Insomnia; Type 2 diabetes mellitus with complication, with long-term current use of insulin ([facility]); Non-seasonal allergic rhinitis, unspecified trigger; Type [...] Start: 04-05-2024 End: 04-06-2024 Refill Mckayla Aichholz WIRE CHARGER Work Phone: [facility] Comment on above: Hyperlipidemia, unsp ecified (CMS/HCC); Bilateral lower extremity edema Vitamin D deficiency , unspecified Start: 01-17-2024 Patient encounter procedure Rain Souza MD Work Phone: [facility] Start: 08-17-2023 Refill Mckayla Aichholz WIRE CHARGER Work Phone: [facility] Comment on above: Vaginal yeast infect ion (Primary Dx) Start: 08-14-2023 Refill Mckayla Aichholz WIRE CHARGER Work Phone: [facility] Comment on above: Type 2 diabetes asiya itus with unspecified complications (CMS/HCC); Edema, unspecified; Edema Start: 12-05-2022 ambulatory MATEUSZ NICHOLEMIPATHY . Facility:[facility]1 Start: 12-05-2022 End: 12-06-2022 Evaluation and management of inpatient UMBERTO ALONDRA . 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 Facility:[facility]1 Start: 11-15-2022 End: 11-15-2022 Patient encounter procedure SARAH VEGA [facility] Start: 10-05-2022 End: 10-05-2022 ambulatory MARIANO DIAB . Facility:[facility]1 Start: 09-21-2022 End: 09-21-2022 ambulatory GOVERNMENT SERVICES PROFESSIONAL MCKAYLA AICCayetanoMARIYAZ Facility:[facility]1 Start: 09-14-2022 ambulatory RAFAEL Ribera y:H1 Start: 08-24-2022 End: [address] CHAPARRO [place] . Facility:[facility]1 Start: 08-21-2022 End: 08-22-2022 ambulatory HATTIE Ramsey [facility] Facility:[facility]1 Start: 07-27-2022 End: 07-28-2022 ambulatory CECILIA NIRMALATray . Facility:[facility]1 Start: 07-18-2022 End: 07-19-2022 ambulatory CECILIA BJORNRUCHI . Facility:[facility]1 Start: 07-18-2022 End: 07-19-2022 ambulatory HATTIE Ramsey [facility] Facility:[facility]1 Start: 07-06-2022 End: 07-06-2022 ambulatory SAYDA BLAS Facility:[facility]1 Start: 05-11-2022 End: 05-12-2022 ambulatory GIL VALENZUELA . Facility:[facility]1 Start: 04-25-2022 End: 04-25-[address] CHAPARRO MORTENSEN . Facility:[facility]1 Start: 04-20-2022 End: 04-21-2022 ambulatory GIL VALENZUELA . Facility:[facility]1 Start: 03-08-2022 End: 03-08-2022 ambulatory Stephanie Tico Other [employer] Other Start: 03-08-2022 Office outpatient vi sit 15 minutes Stpehanie Tico [facility] Start: 03-03-2022 End: 03-04-2022 ambulatory SAYDA BLAS Facility:[facility]1 Start: 02-20-2022 End: 02-20-2022 ambulatory Stephanie Tico Other [employer] Other Start: 02-20-2022 Office outpatient ne w 45 minutes Stephanie Tico [facility] Start: 02-06-2022 End: 02-06-2022 Patient encounter procedure Elbert ARAUZ [facility] Start: 01-19-2022 End: 01-20-2022 ambulatory GIL VALENZUELA . Facility:[facility]1 Start: 12-24-2021 End: 12-24-2021 ambulatory OLE RAMIREZ Facility: Start: 08-26-2020 End: 09-10-2020 Patient encounter procedure MARY TAVERAS Facility:[facility] Start: 10-30-2019 End: 10-30-2019 Emergency department patient visit JAMES BENAVIDEZ [facility] Start: 10-30-2019 End: 10-30-2019 Emergency department patient visit James Benavidez [facility] Emergency Department Start: 11-02-2016 Preoperative state Stephanie Tico Other [employer] Other Procedures Date Procedure Procedure Detail Performing [...] Rain Souza MD Work Phone: Start: 10-08-2024 [facility] UA (CLEAN/CATCH) MICROSCOPIC IF INDICATE Mckayla Blas WIRE CHARGER Work Phone: Start: 08-27-2024 ALL CBC WITH AUTO DIFF Generic External Data Provider Start: 05-27-2024 Gluc bld gluc mntr d ev cleared fda spec home use Rain Souza MD Work Phone: Start: 05-12-2024 [facility] CREATININE Generic External Data Provider Start: 12-14-2023 Mammography Rain urena MD Work Phone: Start: 11-22-2022 Mammography Mckayla clifford WIRE CHARGER Work Phone: Start: 10-08-2015 Microscopic observat ion [Identifier] in Cervix by Cyto stain Mckayla Blas NP Work Phone: H/O: hysterectomy Elbert LARA Laparoscopic cholecystectomy Elbert ARAUZ Operative procedure on foot Elbert ARAUZ Plan of Treatment Date Care Activity Detail Author Start: 02-01-2026 End: 02-01-2026 Patient encounter procedure [facility] Start: 01-26-2026 Medicare Annual Wellness (AWV) Medicare Annual Wellness (AWV) [facility] Start: 10-08-2025 Urine screening for protein Diabetes: Urine Protein Screening [facility] Start: 08-03-2025 Screening for malignant neoplasm of colon [facility] Start: 07-14-2025 Glaucoma screening Diabetes: R etinopathy Screening [facility] Start: 05-28-2025 End: 05-28-2025 Patient encounter procedure [facility] Start: 05-13-2025 Glaucoma screening Diabetes: R etinopathy Screening [facility] Start: 05-01-2025 Hemoglobin A1c measurement Diabetes: Hemoglobin A1C [facility] Start: 04-29-2025 End: 04-29-2025 Patient encounter procedure [facility] Start: 03-09-2025 Influenza vaccination N [facility] Start: 01-28-2025 End: 01-28-2025 Patient encounter procedure 01/28/2025 10:50 AM EDT Office Visit [facility] [address] [place] [address] Rain Souza MD [address] [place] [address] [facility] Start: 01-26-2025 End: 01-26-2025 Patient encounter procedure 01/26/2025 6:00 PM EDT Office Visit [facility] [address] [place] [phone] Mckayla Blas NP [address] [place] [phone] [facility] Start: 01-16-2025 Medicare Annual Wellness (AWV) Medicare Annual Wellness (AWV) [facility] Start: 01-07-2025 Hemoglobin A1c measurement Diabetes: Hemoglobin A1C [facility] Start: 12-15-2024 End: 12-27-2025 MG Breast - bilateral Screening Bilateral screening mammogram Imaging Routine Encounter for screening mammogram for malignant neoplasm of breast Expected: 12/15/2024 (Approximate), Expires: 12/27/2025 [facility] Work Phone: Comment on above: Expected: 12/15/2024 (Approximate), Expires: 12/27/2025 Start: 12-13-2024 Screening for malignant neoplasm of breast Mammogram [facility] Start: 11-11-2024 Urine screening for protein Diabetes: Urine Protein Screening [facility] Start: 10-27-2024 End: 10-27-2024 Patient encounter procedure 10/27/2024 2:00 PM EDT Office Visit [facility] [address] [place] [phone] Mckayla Blas NP [address] [place] [phone] [facility] Start: 10-08-2024 End: 10-08-2024 Patient encounter procedure 10/08/2024 11:20 AM EDT Office Visit [facility] [address] [place] [address] Rain Souza MD [address] [place] [address] [facility] Start: 08-27-2024 End: 08-27-2024 Patient encounter procedure 08/27/2024 5:30 PM EST Office Visit [facility] [address] [place] [phone] Mckayla Blas NP [address] [place] [phone] [facility] Start: 08-27-2024 End: 08-27-2025 25-hydroxyvitamin D3 [Mass/volume] in Serum or Plasma Vitamin D 25 hydroxy Lab Routine Vitamin deficiency Expected: 08/27/2024 (Approximate), Expires: 08/27/2025 [facility] Comment on above: Expected: 08/27/2024 (Approximate), Expires: 08/27/2025 Start: 08-27-2024 Hemoglobin A1c measurement Diabetes: Hemoglobin A1C [facility] Start: 08-27-2024 End: 08-27-2025 Hepatic function 2000 panel - Serum or Plasma Hepatic function panel Lab Routine Hyperlipidemia, unspecified (CMS/HCC) Expected: 08/27/2024 (Approximate), Expires: 08/27/2025 [facility] Comment on above: Expected: 08/27/2024 (Approximate), Expires: 08/27/2025 Start: 08-27-2024 End: 08-27-2025 Lipid 1996 panel - Serum or Plasma Lipid panel Lab Routine Mixed hyperlipidemia (CMS/HCC) Expected: 08/27/2024 (Approximate), Expires: 08/27/2025 [facility] Work Phone: Comment on above: Expected: 08/27/2024 (Approximate), Expires: 08/27/2025 Start: 08-27-2024 End: 08-27-2025 Microalbumin/Creatini ne panel in random Urine Microalbumin / creatinine, urine ratio Lab Routine Primary hypertension (CMS/HCC) Type 2 diabetes mellitus with complication, with long-term current use of insulin ([facility]/HCC) Expected: 08/27/2024 (Approximate), Expires: 08/27/2025 [facility] Comment on above: Expected: 08/27/2024 (Approximate), Expires: 08/27/2025 Start: 08-27-2024 End: 08-27-2025 Urate [Mass/volume] in Serum or Plasma Uric acid Lab Routine Gout, unspecified cause, unspecified chronicity, unspecified site Expected: 08/27/2024 (Approximate), Expires: 08/27/2025 [facility] Comment on above: Expected: 08/27/2024 (Approximate), Expires: 08/27/2025 Start: 08-27-2024 End: 08-27-2025 Urinalysis complete panel - Urine Urinalysis with reflex microscopic (clean catch) Lab Routine Primary hypertension ([facility]) Type 2 diabetes mellitus with complication, with long-term current use of insulin ([facility]) Tobacco user Gout, unspecified cause, unspecified chronicity, unspecified site Expected: 08/27/2024 (Approximate), Expires: 08/27/2025 [facility] Comment on above: Expected: 08/27/2024 (Approximate), Expires: 08/27/2025 Start: 08-26-2024 End: 08-26-2024 Patient encounter procedure 08/26/2024 10:30 AM EST Office Visit [facility] [address] [place] [phone] Rain Souza MD [address] [place] [address] [facility] Start: 07-14-2024 End: 07-14-2024 Patient encounter procedure 07/14/2024 6:30 PM EST Office Visit [facility] [address] [place] [address] Mckayla Blas NP [address] [place] [address] [facility] Start: 07-14-2024 End: 07-14-2024 Patient encounter procedure 07/14/2024 10:10 AM EST Office Visit [facility] [address] [place] [phone] Rain Souza MD [address] [place] [address] [facility] Start: 06-06-2024 Influenza vaccination Influenza Vacc ine (#1) [facility] Comment on above: Postponed from 03/09 (Patient Refused) Start: 05-27-2024 End: 05-27-2024 Patient encounter procedure 05/27/2024 9:50 AM EST Office Visit [facility] [address] [place] [address] Rain Souza MD [address] [place] [address] [facility] Start: 05-17-2024 Hemoglobin A1c measurement Diabetes: Hemoglobin A1C [facility] Start: 05-15-2024 End: 05-15-2024 Chart abstracting 05/15/2024 Abstract [facility] [address] [place] [address] Rain Souza MD [address] [place] [address] [facility] Start: 05-15-2024 End: 05-15-2024 Patient encounter procedure 05/15/2024 11:20 AM EST Office Visit [facility] [address] [place] [address] Rain Souza MD [address] [place] [address] [facility] Start: 04-17-2024 End: 04-17-2024 Patient encounter procedure 04/17/2024 3:40 PM EDT Office [facility] [address] [place] [address] Mckayla Blas NP [address] [place] [address] [facility] Start: 04-14-2024 End: 04-14-2024 Patient encounter procedure 04/14/2024 11:00 AM EDT Office [facility] [address] [place] [phone] Mckayla Blas, WIRE CHARGER [address] [place] [phone] [facility] Comment on above: Arrived Start: 03-09-2024 Influenza vaccination Influenza Vacc ine (#1) [facility] Start: 02-19-2024 Hemoglobin A1c measurement Diabetes: Hemoglobin A1C [facility] Start: 11-24-2023 Urine screening for protein Diabetes: Urine Protein Screening [facility] Start: 11-23-2023 Screening for malignant neoplasm of breast Mammogram [facility] Start: 10-15-2023 End: 10-15-2023 Patient encounter procedure 10/15/2023 4:30 PM EDT Office Visit [facility] [address] [place] [phone] Mckayla Blas NP [address] [place] [phone] [facility] Start: 08-09-2023 Hemoglobin A1c measurement Diabetes: Hemoglobin A1C [facility] Start: 05-27-2021 Glaucoma screening Diabetes: R etinopathy Screening [facility] Start: 03-09-2020 Influenza vaccination Flu vacc ine (Season Ended) [place], [place] Start: 10-07-2018 Screening for malignant neoplasm of cervix [facility] Start: 2010 Lipid panel Lipid screen [place], [place] Start: 2000 Screening for malignant neoplasm of cervix HPV/Cotest [facility] Start: 1991 Screening for malignant neoplasm of cervix Cervical cancer screen [place], [place] Start: 1989 DTaP/Tdap/Td vaccine (1 - Tdap) DTaP/Tdap/Td vaccine (1 - Tdap) [place], [place] Start: 1985 HIV screening HIV screen [place], [place] Start: 1970 Medicare Annual Wellness (AWV) Medicare Annual Wellness (AWV) [facility] Start: 1970 Screening for malignant neoplasm of colon [facility] BLOOD CULTURE 1 BLOOD CULTURE 1 Lab Routine 12/04/2024 4:44 PM EDT [facility] BLOOD CULTURE 2 BLOOD CULTURE 2 Lab Routine 12/04/2024 5:28 PM EDT [facility] Immunizations Immunization Date Immunization Notes Care Provider Judie lucas 05-18-2023 influenza, injectabl e, quadrivalent, contains preservative Mckayla Blas NP Work Phone: [facility] 05-18-2023 influenza virus vacc ine, unspecified formulation Rain Souza MD Work Phone: [facility] 07-19-2021 SARS-CoV-2 (COVID-19 ) mRNA BNT-162b2 vax [email or web address] [facility] 10-28-2020 SARS-CoV-2 (COVID-19 ) mRNA BNT-162b2 vax [email or web address] [facility] 10-08-2020 SARS-CoV-2 (COVID-19 ) mRNA BNT-162b2 vax [email or web address] [facility] 04-16-2017 influenza virus vacc ine, H5N1, A/ (national stockpile) Mckayla Blas WIRE CHARGER Work Phone: [facility] 04-16-2017 influenza virus vacc ine, unspecified formulation Rain Souza MD Work Phone: [facility] 04-16-2017 influenza, unspecifi ed formulation Elbert REGLA [facility] 04-16-2017 pneumococcal polysaccharide vaccine, 23 valent Rain Souza MD Work Phone: [facility] 05-10-2016 influenza virus vacc ine, H5N1, A/ (national stockpile) Mckayla Blas NP Work Phone: [facility] 05-10-2016 influenza virus vacc ine, unspecified formulation Rain Souza MD Work Phone: [facility] 05-10-2016 influenza, unspecifi ed formulation Elbert ARAUZ [facility] 05-02-2013 influenza virus vacc ine, whole virus Rain Souza MD Work Phone: [facility] 05-02-2013 influenza, injectabl e, quadrivalent, contains preservative Mckayla Wan WIRE CHARGER Work Phone: [facility] 05-02-2013 influenza, whole Elbert BARBARA ERS [facility] 01-29-1998 measles, mumps and rubella virus vaccine Rain Souza MD Work Phone: [facility] Payers Date Payer Category Payer Unknown [id number] 2023 Medicare (Managed Care) 1.2. [id number] 2023 Private Health Insurance [id number] 2023 Medicare [id number] 2018 Medicaid MEDICAID [facility] [id number] 2018-Present [phone] [address] [place] [address] Medicaid [id number] 2013 Medicare [id number] .[id number] 1970 Unknown [id number] 2.16.840.1.526686.3.579.2.6 47 1970 Unknown [id number] 2.16.840.1.353027.3.579.2.5 93 1970 Unknown [id number] 2.16.840.1.859452.3.579.2.5 93 1970 Unknown [id number] 2.16.840.1.106415.3.579.2.5 93 1970 Unknown [id number] 2.16.840.1.725410.3.579.2.5 93 1970 Unknown [id number] 2.16.840.1.948933.3.579.2.5 93 1970 Unknown [id number] 2.16.840.1.221441.3.579.2.5 93 1970 Unknown [id number] 2.16.840.1.742730.3.579.2.5 93 1970 Unknown [id number] 2.16.840.1.868140.3.579.2.5 93 1970 Unknown [id number] 2.16.840.1.545828.3.579.2.5 93 1970 Unknown [id number] 2.16.840.1.142665.3.579.2.5 93 1970 Unknown [id number] 2.16.840.1.562516.3.579.2.5 93 1970 Unknown [id number] 2.16.840.1.791327.3.579.2.5 93 1970 Unknown [id number] 2.16.840.1.558394.3.579.2.5 93 1970 Unknown [id number] 2.16.840.1.560255.3.579.2.5 93 1970 Unknown [id number] 2.16.840.1.856513.3.579.2.5 93 1970 Unknown [id number] 2.16.840.1.210137.3.579.2.5 93 1970 Unknown [id number] 2.16.840.1.792632.3.579.2.5 93 1970 Unknown [id number] 2.16.840.1.515826.3.579.2.5 93 1970 Unknown [id number] 2.16.840.1.722613.3.579.2.5 93 1970 Unknown [id number] 2.16.840.1.153669.3.579.2.5 93 1970 Unknown [id number] 2.16.840.1.754511.3.579.2.5 93 1970 Unknown [id number] 2.16.840.1.615872.3.579.2.5 93 1970 Unknown [id number] 2.16.840.1.313157.3.579.2.7 27 1970 Unknown [id number] 2.16.840.1.728740.3.579.2.7 27 1970 Unknown [id number] 2.16.840.1.696750.3.579.2.1 259 1970 Unknown [id number] 2.16.840.1.749020.3.579.2.1 259 1970 Unknown [id number] 2.16.840.1.137573.3.579.2.1 259 1970 Unknown [id number] 2.16.840.1.590051.3.579.2.1 259 1970 Unknown [id number] 2.16.840.1.112467.3.579.2.1 259 1970 Unknown [id number] 2.16.840.1.220296.3.579.2.1 259 1970 Unknown [id number] 2.16.840.1.069417.3.579.2.1 259 1970 Unknown [id number] 2.16.840.1.644837.3.579.2.1 259 1970 Unknown [id number] 2.16.840.1.968686.3.579.2.1 259 1970 Unknown [id number] 2.16.840.1.001272.3.579.2.1 96 1970 Unknown [id number] 2.16.840.1.751603.3.579.2.1 96 1970 Unknown [id number] 2.16.840.1.139351.3.579.2.1 96 1970 Unknown [id number] 2.16.840.1.244010.3.579.2.1 96 1970 Unknown [id number] 2.16.840.1.307339.3.579.2.1 96 1970 Unknown [id number] 2.16.840.1.585988.3.579.2.1 96 1959 Medicaid [id number] 1959 Private Health Insurance [id number] 1959 Unknown [id number] 2.16.840.1.840535.19 Social History Date Type Detail Facility Start: 02-17-2014 End: 01-29-2025 Tobacco smoking status NHIS Current every day smoker [place], [place] Start: 02-17-1994 History of tobacco use Cigarette Smo ker [place] Start: 02-17-2014 End: 08-26-2024 Cigarettes smoked current (pack per day) - Reported [place] Start: 02-17-2014 Alcohol intake Current drinke r of alcohol (finding) [place] Start: 02-17-2014 Alcohol Comment Rare [place], [place] Start: 1970 Sex Assigned At Not on file M [place], [place] Exposure to SARS-CoV -2 (event) Unable to assess [place] Start: 02-06-2022 Tobacco smoking status Smoker (findi ng) [facility] Start: 07-10-2023 End: 08-26-2024 Sex Assigned At Female [facility] Start: 11-15-2022 End: 06-11-2024 Tobacco smoking status Heavy tobacco smoker (finding) [facility] Start: 07-10-2023 End: 01-29-2025 Tobacco use [...] Equipment Origin al Text Equipment Identifier Dates [id number] Start: 01-18-2024 USE TO TEST BLOO D SUGAR 4 TIMES DAILY [id number] Start: 07-07-2024 Functional Status Date Assessment Result Facility 01-26-2025 Patient Health Quest ionnaire 2 item (PHQ-2) [Reported] [facility] 01-26-2025 Trouble falling or s taying asleep, or sleeping too much Not at all 01/26/2025 4:13 PM EDT Mychart, Generic Not at all [facility] 01-26-2025 Feeling tired or hav ing little energy Not at all 01/26/2025 4:13 PM EDT Mychart, Generic Not at all [facility] 01-26-2025 Poor appetite or overeating Not at all 01/26/2025 4:13 PM EDT Mychart, Generic Not at all [facility] 01-26-2025 Feeling bad about yourself-or that you are a failure or have let yourself or your family down Not at all 01/26/2025 4:13 PM EDT Mychart, Generic Not at all [facility] 01-26-2025 Trouble concentratin g on things, such as reading the newspaper or watching television Not at all 01/26/2025 4:13 PM EDT Mychart, Generic Not at all [facility] 01-26-2025 Moving or speaking s o slowly that other people could have noticed. Or the opposite - being so fidgety or restless that you have been moving around a lot more than usual Not at all 01/26/2025 4:13 PM EDT Mychart, Generic Not at all [facility] 01-26-2025 Thoughts that you wo uld be better off , or of hurting yourself in some way Not at all 01/26/2025 4:13 PM EDT Mychart, Generic Not at all [facility] 06-11-2024 Functional Status N/A [facility] 11-15-2022 Functional Status N/A [facility] 02-06-2022 Functional Status N/A [facility] Clinical Notes 01-19-2022 to 02-04-2025 Rain Souza MD - 01/29/2025 9:40 AM Savannah Blas NP - 01/26/2025 6:46 PM Savannah Blas NP - 01/26/2025 6:46 PM EDMicheal Sowcayetanomariyatalia, WIRE CHARGER - 01/26/2025 6:46 PM EDTPatient Instructions Note Date & Type Note Facility 02-04-2025 Note Please let her know her ECHO showed some improvement in the left side wall thickness, it was severely enlarged, now it is moderate. Important for good BP control to continue to improve this. Everything else looks good. Follow-up as planned in 6 months. Thanks! [facility] 01-29-2025 History of Present illness Narrative Images [...] 25 mg, Oral, 2 times daily HYDROcodone-acetaminophen ([place]) 5-325 MG tablet 1 tablet, 3 times [...] 09/17/2023 Angiomyolipoma Anxiety and depression 07/10/2023 Asthma ([facility]) 07/10/2023 Body mass index (BMI) 50.0-59.9, adult ([facility]) Cellulitis of left lower extremity Cervical cancer ([facility]) 09/17/2023 Chronic pain of both knees 09/17/2023 COPD (chronic obstructive pulmonary disease) ([facility]) 07/10/2023 COPD exacerbation ([facility]) 09/17/2023 Decreased functional mobility 09/17/2023 Diabetic neuropathy ([facility]) 07/10/2023 Dietary counseling and surveillance Edema 07/10/2023 Elevated sed rate Elevated WBC count Essential (primary) hypertension GERD (gastroesophageal reflux disease) 09/17/2023 Hyperlipidemia 09/17/2023 Hypertension 07/10/2023 Insomnia 09/17/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 ([facility]) Lower extremity edema 09/17/2023 Mixed hyperlipidemia Morbid (severe) obesity due to excess calories ([facility]) Obstructive sleep apnea 07/10/2023 PAD (peripheral artery disease) 09/17/2023 Pancreatitis ([facility]) 09/17/2023 Pneumonia 09/17/2023 Proteinuria, unspecified Pulmonary hypertension ([facility]) 09/17/2023 Radiculopathy, lumbar region 09/17/2023 Tobacco user 09/17/2023 Type 2 diabetes mellitus with complication, with long-term current use of insulin ([facility]) 07/10/2023 Unilateral primary osteoarthritis, right [...] use of insulin ([facility]) - POCT glycosylated hemoglobin (Hb A1C) [...] (BMI) of 50.0 to 59.9 in adult ([facility]) Diet and exercise reviewed with the patient Follow up in about 4 months (around 06/01/2025). documented in this encounter [facility] 01-26-2025 History of Present illness Narrative Associated Problem(s): Anxiety and depression Current meds: elavil, duloxtine, Associated Problem(s): Morbid (severe) obesity due to excess calories ([facility]) Discussed with patient their BMI (actual, verses [...] Asthma (HCC) Current meds: albuterol, duoneb, Has soaping machine back tender 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 Associated Problem(s): COPD (chronic [...] 25 mg, Oral, 2 times daily HYDROcodone-acetaminophen ([place]) 5-325 MG tablet 1 tablet, 3 times [...] 09/17/2023 Angiomyolipoma Anxiety and depression 07/10/2023 Asthma ([facility]) 07/10/2023 Body mass index (BMI) 50.0-59.9, adult ([facility]) Cellulitis of left lower extremity Cervical cancer ([facility]) 09/17/2023 Chronic pain of both knees 09/17/2023 COPD (chronic obstructive pulmonary disease) ([facility]) 07/10/2023 COPD exacerbation ([facility]) 09/17/2023 Decreased functional mobility 09/17/2023 Diabetic neuropathy ([facility]) 07/10/2023 Dietary counseling and surveillance Edema 07/10/2023 Elevated sed rate Elevated WBC count Essential (primary) hypertension GERD (gastroesophageal reflux disease) 09/17/2023 Hyperlipidemia 09/17/2023 Hypertension 07/10/2023 Insomnia 09/17/2023 FDC (current) use of insulin ([facility]) Lower extremity edema 09/17/2023 Mixed hyperlipidemia Morbid (severe) obesity due to excess calories ([facility]) Obstructive sleep apnea 07/10/2023 PAD (peripheral artery disease) 09/17/2023 Pancreatitis ([facility]) 09/17/2023 Pneumonia 09/17/2023 Proteinuria, unspecified Pulmonary hypertension ([facility]) 09/17/2023 Radiculopathy, lumbar region 09/17/2023 Tobacco user 09/17/2023 Type 2 diabetes mellitus with complication, with long-term current use of insulin ([facility]) 07/10/2023 Unilateral primary osteoarthritis, right [...] is 7.4%!!! COPD (chronic obstructive pulmonary disease) ([facility]) Follows with verena Needs smoking cessation Current meds: duoneb, albuterol, daliresp, Asthma ([facility]) Current meds: albuterol, duoneb, Has soaping machine back tender 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 Hypertension Please check blood [...] use of insulin ([facility]) Check blood sugars daily, notify [...] amitriptyline (Elavil) 25 MG tablet Pulmonary hypertension ([facility]) Has seen [facility] Cardiology Hyperlipidemia On statin therapy Check labs [...] obesity due to excess calories ([facility]) Discussed with patient their BMI (actual, verses [...] Problem(s): Pulmonary hypertension (HCC) Has seen [facility] Cardiology Associated Problem(s): Hypertension Please check blood [...] a yearly basis documented in this encounter [facility] 01-26-2025 Instructions Mckayla Blas NP - 01/26/2025 6:00 PM EDT Please call the [facility] to schedule your mammogram: [phone]- ext [phone] documented in this encounter [facility] 01-06-2025 Note Cardiovascular Medic ine [facility] SUBJECTIVE Chief Complaint Patient presents with Congestive Heart Failure Hypertension Hyperlipidemia Mitzi Macias is a 54 y.o. female here for follow-up. PMHx: HFpEF, HTN, HLD, DM, longstanding heavy smoker, COPD, DANIEL, morbid obesity HPI 01/06/2025 Since last seen she was admitted to [facility] for AMS on 12/05/2024. She [...] Bilateral lower extremity edema BMI 50.0-59.9, adult ([facility]) Candidiasis of breast Cardiomegaly Cervical cancer [...] complication, with long-term current use of insulin ([facility]) Unilateral primary osteoarthritis, right hip Vaginal yeast infection Venous insufficiency Bad odor of urine Critical limb ischemia of right lower extremity ([facility]) Hyperpigmentation of skin 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 2 diabetes mellitus ([facility]) Myelolipoma of adrenal gland Venous ulcer of right leg ([facility]) Chronic diastolic heart failure ([facility]) Antibiotic-induced yeast infection Cellulitis of left lower extremity Cigarette nicotine dependence without complication Fever 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 ([facility]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 Vitamin D deficiency, unspecified Vitamin deficiency Past Medical History: Diagnosis Date COPD (chronic obstructive pulmonary disease) ([facility]) Diabetes mellitus ([facility]) Hyperlipidemia Hypertension Sleep apnea Family [...] , Rfl: ergocalciferol (Vitamin D-2) 1.25 MG (09146 Units) capsule, Take 1.25 mg by mouth., [...] and at bedtime., Disp: , Rfl: HYDROcodone-acetaminophen ([place]) 5-325 mg tablet, TAKE 1 TABLET BY MOUTH THREE TIMES A DAY NEEDED FOR PAIN MUST LAST 30 DAYS, Disp: , Rfl: insulin aspart (NovoLOG) 100 unit/mL (3 mL) injection pen, Novolog Flexpen U-100 Insulin aspart 100 unit/mL (3 mL) subcutaneous, Disp: , Rfl: insulin glargine (Lantus Solostar U-100 Insulin) 100 unit/mL (3 mL) injection pen (more content not included)... [facility] 01-06-2025 Note Patient is here toda y [...] weight gain. Cardiovascular: Positive for leg swelling. [facility] 12-09-2024 History of Present illness Narrative Associated [...] bad light. She was ultimately taken to [facility] ER, no tox screen was [...] 25 mg, Oral, 2 times daily HYDROcodone-acetaminophen ([place]) 5-325 MG tablet 1 tablet, 3 times [...] CT Albuminuria 09/17/2023 Angiomyolipoma Anxiety and depression ([facility]) 07/10/2023 Asthma 07/10/2023 Body mass index (BMI) 50.0-59.9, adult ([facility]) Cellulitis of left lower extremity Cervical cancer ([facility]) 09/17/2023 Chronic pain of both knees 09/17/2023 COPD (chronic obstructive pulmonary disease) ([facility]) 07/10/2023 COPD exacerbation ([facility]) 09/17/2023 Decreased functional mobility 09/17/2023 Diabetic neuropathy ([facility]) 07/10/2023 Dietary counseling and surveillance Edema 07/10/2023 Elevated sed rate Elevated WBC count Essential (primary) hypertension ([facility]) GERD (gastroesophageal reflux disease) 09/17/2023 Hyperlipidemia ([facility]) 09/17/2023 Hypertension ([facility]) 07/10/2023 Insomnia 09/17/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 ([facility]) Lower extremity edema 09/17/2023 Mixed hyperlipidemia ([facility]) Morbid (severe) obesity due to excess calories ([facility]) Obstructive sleep apnea 07/10/2023 PAD (peripheral artery disease) ([facility]) 09/17/2023 Pancreatitis 09/17/2023 Pneumonia 09/17/2023 Proteinuria, unspecified Pulmonary hypertension ([facility]) 09/17/2023 Radiculopathy, lumbar region 09/17/2023 Tobacco user 09/17/2023 Type 2 diabetes mellitus with complication, with long-term current use of insulin ([facility]) 07/10/2023 Unilateral primary [...] Problem List Items Addressed This Visit Hypertension ([facility]) Please check blood pressure daily and record DASH diet Limit caffeine Take medication as directed Contact office if chest pain, pressure, dizziness, shortness of breath, swelling legs Recommend slow position changes Current meds: hydralazine, lisinopril, Type 2 diabetes mellitus with complication, with long-term current use of insulin ([facility]) Check blood sugars daily, notify [...] is not wearing this today Pulmonary hypertension ([facility]) Has seen [facility] Cardiology Morbid (severe) obesity due to excess calories ([facility]) Discussed with patient their BMI [...] Continues to follow with Libby On asa, itla, statin, farxiga, mounjaro Most recent A1c is [...] Problem(s): Pulmonary hypertension (CMS/HCC) Has seen [facility] Cardiology Associated Problem(s): Hypertension (CMS/HCC) Please check [...] wearing this today documented in this encounter [facility] 12-09-2024 Instructions Mckayla Blas NP - 12/09/2024 10:00 AM EDT Keep appt with wound care today Keep fu with me, sooner if needed documented in this encounter [facility] 10-27-2024 History of Present illness Narrative Associated [...] 25 mg, Oral, 2 times daily HYDROcodone-acetaminophen ([place]) 5-325 MG tablet 1 tablet, 3 times [...] CT Albuminuria 09/17/2023 Angiomyolipoma Anxiety and depression ([facility]) 07/10/2023 Asthma 07/10/2023 Body mass index (BMI) 50.0-59.9, adult ([facility]) Cellulitis of left lower extremity Cervical cancer ([facility]) 09/17/2023 Chronic pain of both knees 09/17/2023 COPD (chronic obstructive pulmonary disease) ([facility]) 07/10/2023 COPD exacerbation ([facility]) 09/17/2023 Decreased functional mobility 09/17/2023 Diabetic neuropathy ([facility]) 07/10/2023 Dietary counseling and surveillance Edema 07/10/2023 Elevated sed rate Elevated WBC count Essential (primary) hypertension ([facility]) GERD (gastroesophageal reflux disease) 09/17/2023 Hyperlipidemia ([facility]) 09/17/2023 Hypertension ([facility]) 07/10/2023 Insomnia 09/17/2023 FDC (current) use of insulin ([facility]) Lower extremity edema 09/17/2023 Mixed hyperlipidemia ([facility]) Morbid (severe) obesity due to excess calories ([facility]) Obstructive sleep apnea 07/10/2023 PAD (peripheral artery disease) ([facility]) 09/17/2023 Pancreatitis 09/17/2023 Pneumonia 09/17/2023 Proteinuria, unspecified Pulmonary hypertension ([facility]) 09/17/2023 Radiculopathy, lumbar region 09/17/2023 Tobacco user 09/17/2023 Type 2 diabetes mellitus with complication, with long-term current use of insulin ([facility]) 07/10/2023 Unilateral primary osteoarthritis, right [...] List Items Addressed This Visit Diabetic neuropathy ([facility]) - Primary Continue with cintia hudson mgmt is prescribing OARRS reviewed Fu in 3 months Goal: tighter glucose control, this has been improving, latest A1c is 7.4%!!! Hypertension ([facility]) Please check blood pressure daily and record DASH diet Limit caffeine Take medication as directed Contact office if chest pain, pressure, dizziness, shortness of breath, swelling legs Recommend slow position changes Current meds: hydralazine, lisinopril, Relevant Medications hydrALAZINE (Apresoline) 25 MG tablet lisinopril 20 MG tablet Type 2 diabetes mellitus with complication, with long-term current use of insulin ([facility]) Check blood sugars daily, notify [...] 81 MG chewable tablet Anxiety and depression ([facility]) Current meds: elavil, duloxtine, Relevant Medications DULoxetine (Cymbalta) [address] capsule Bilateral lower extremity edema Limit sodium , elevate legs, furosemide Relevant Medications furosemide (Lasix) 20 MG tablet potassium chloride ER (Micro-K) 10 MEQ ER capsule furosemide (Lasix) 40 MG tablet Insomnia Relevant Medications amitriptyline (Elavil) 25 MG tablet PAD (peripheral artery disease) ([facility]) Asa, statin Quit smoking BP [...] Relevant Medications ergocalciferol (Vitamin D2) 1.25 MG (53733 UT) capsule Gastro-esophageal reflux disease without esophagitis [...] complication, with long-term current use of insulin (CMS/[facility]) Check blood sugars daily, notify [...] duoneb, albuterol, daliresp, Associated Problem(s): Diabetic neuropathy (CMS/[facility]) Continue with cintia hudson is prescribing OARRS reviewed Fu in 3 months Goal: tighter glucose control, this has been improving, latest A1c is 7.4%!!! documented in this encounter [facility] 10-27-2024 Instructions Mckayla Blas NP - 10/27/2024 2:00 PM EDT No dose changes in meds You will be due for mammogram I will send order to [facility], they should call you to schedule If no call, please call [phone] documented in this encounter [facility] 10-08-2024 History of Present illness Narrative Images [...] or chew. ergocalciferol (Vitamin D2) 1.25 MG (67685 UT) capsule TAKE 1 CAPSULE BY MOUTH [...] 25 mg, Oral, 2 times daily HYDROcodone-acetaminophen ([place]) 5-325 MG tablet 1 tablet, 3 times [...] CT Albuminuria 09/17/2023 Angiomyolipoma Anxiety and depression ([facility]) 07/10/2023 Asthma ([facility]) 07/10/2023 Body mass index (BMI) 50.0-59.9, adult ([facility]) Cellulitis of left lower extremity Cervical cancer ([facility]) 09/17/2023 Chronic pain of both knees 09/17/2023 COPD (chronic obstructive pulmonary disease) ([facility]) 07/10/2023 COPD exacerbation ([facility]) 09/17/2023 Decreased functional mobility 09/17/2023 Diabetic neuropathy ([facility]) 07/10/2023 Dietary counseling and surveillance Edema 07/10/2023 Elevated sed rate Elevated WBC count Essential (primary) hypertension ([facility]) GERD (gastroesophageal reflux disease) 09/17/2023 Hyperlipidemia ([facility]) 09/17/2023 Hypertension ([facility]) 07/10/2023 Insomnia 09/17/2023 FDC (current) use of insulin ([facility]) Lower extremity edema 09/17/2023 Mixed hyperlipidemia ([facility]) Morbid (severe) obesity due to excess calories ([facility]) Obstructive sleep apnea 07/10/2023 PAD (peripheral artery disease) ([facility]) 09/17/2023 Pancreatitis 09/17/2023 Pneumonia 09/17/2023 Proteinuria, unspecified Pulmonary hypertension ([facility]) 09/17/2023 Radiculopathy, lumbar region 09/17/2023 Tobacco user 09/17/2023 Type 2 diabetes mellitus with complication, with long-term current use of insulin ([facility]) 07/10/2023 Unilateral primary [...] months (around 02/07/2025). documented in this encounter [facility] 08-27-2024 History of Present illness Narrative Associated [...] or chew. ergocalciferol (Vitamin D2) 1.25 MG (33353 UT) capsule TAKE 1 CAPSULE BY MOUTH [...] 25 mg, Oral, 2 times daily HYDROcodone-acetaminophen ([place]) 5-325 MG tablet 1 tablet, 3 times [...] CT Albuminuria 09/17/2023 Angiomyolipoma Anxiety and depression ([facility]) 07/10/2023 Asthma ([facility]) 07/10/2023 Body mass index (BMI) 50.0-59.9, adult ([facility]) Cellulitis of left lower extremity Cervical cancer ([facility]) 09/17/2023 Chronic pain of both knees 09/17/2023 COPD (chronic obstructive pulmonary disease) ([facility]) 07/10/2023 COPD exacerbation ([facility]) 09/17/2023 Decreased functional mobility 09/17/2023 Diabetic neuropathy ([facility]) 07/10/2023 Dietary counseling and surveillance Edema 07/10/2023 Elevated sed rate Elevated WBC count Essential (primary) hypertension ([facility]) GERD (gastroesophageal reflux disease) 09/17/2023 Hyperlipidemia ([facility]) 09/17/2023 Hypertension ([facility]) 07/10/2023 Insomnia 09/17/2023 FDC (current) use of insulin ([facility]) Lower extremity edema 09/17/2023 Mixed hyperlipidemia ([facility]) Morbid (severe) obesity due to excess calories ([facility]) Obstructive sleep apnea 07/10/2023 PAD (peripheral artery disease) ([facility]) 09/17/2023 Pancreatitis 09/17/2023 Pneumonia 09/17/2023 Proteinuria, unspecified Pulmonary hypertension ([facility]) 09/17/2023 Radiculopathy, lumbar region 09/17/2023 Tobacco user 09/17/2023 Type 2 diabetes mellitus with complication, with long-term current use of insulin ([facility]) 07/10/2023 Unilateral primary [...] List Items Addressed This Visit Diabetic neuropathy (CMS/[facility]) Continue with cintia hudson mgmt is prescribing OARRS reviewed Fu in 3 months Goal: tighter glucose control Hypertension ([facility]/H[facility]) Please check blood pressure daily and record [...] complication, with long-term current use of insulin ([facility]) Check blood sugars daily, notify [...] of the risks of continued smoking: stroke, DC, all forms of cancer, lung disease, and [...] of the risks of continued smoking: stroke, DC, all forms of cancer, lung disease, and [...] complication, with long-term current use of insulin ([facility]) Check blood sugars daily, notify [...] obesity due to excess calories ([facility]) Discussed with patient their BMI [...] Problem(s): Malignant neoplasm of cervix uteri, unspecified ([facility]) Had in the past, had [...] Asthma (CMS/HCC) Current meds: albuterol, duoneb, Has soaping machine back tender 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 Associated Problem(s): Obstructive sleep [...] tighter glucose control documented in this encounter [facility] 08-08-2024 Note [place] [facility] - [facility] [...] Other chronic pain PAD (peripheral artery disease) ([facility]) Pneumonia Encounter for screening mammogram for malignant neoplasm of breast Pulmonary hypertension ([facility]) Radiculopathy, lumbar region Current smoker Type 2 diabetes mellitus with complication, with long-term current use of insulin ([facility]) Unilateral primary osteoarthritis, right hip Vaginal yeast infection Venous insufficiency Bad odor of urine Critical limb ischemia of right lower extremity ([facility]) Hyperpigmentation of skin 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 2 diabetes mellitus ([facility]) Myelolipoma of adrenal gland Venous ulcer of right leg ([facility]) HPI Patient was has history of [...] Diagnosis Date COPD (chronic obstructive pulmonary disease) ([facility]) Diabetes mellitus ([facility]) Hyperlipidemia Hypertension Sleep apnea Past [...] , Rfl: ergocalciferol (Vitamin D-2) 1.25 MG (81868 Units) capsule, Take 1.25 mg by mouth., [...] and at bedtime., Disp: , Rfl: HYDROcodone-acetaminophen ([place]) 5-325 mg tablet, TAKE 1 TABLET BY [...] TWICE DAILY, Disp: (more content not included)... [facility] 07-14-2024 History of Present illness Narrative [...] or chew. ergocalciferol (Vitamin D2) 1.25 MG (51869 UT) capsule TAKE 1 CAPSULE BY MOUTH ONE TIME PER WEEK furosemide (LASIX) 40 mg, Oral, Daily furosemide (LASIX) 20 mg, Oral, Daily PRN, Take in the afternoon as needed hydrALAZINE (APRESOLINE) 25 mg, Oral, 2 times daily HYDROcodone-acetaminophen ([place]) 5-325 MG tablet 1 tablet, 3 times [...] CT Albuminuria 09/17/2023 Angiomyolipoma Anxiety and depression ([facility]) 07/10/2023 Asthma ([facility]) 07/10/2023 Body mass index (BMI) 50.0-59.9, adult ([facility]) Cellulitis of left lower extremity Cervical cancer ([facility]) 09/17/2023 Chronic pain of both knees 09/17/2023 COPD (chronic obstructive pulmonary disease) ([facility]) 07/10/2023 COPD exacerbation ([facility]) 09/17/2023 Decreased functional mobility 09/17/2023 Diabetic neuropathy ([facility]) 07/10/2023 Dietary counseling and surveillance Edema 07/10/2023 Elevated sed rate Elevated WBC count Essential (primary) hypertension ([facility]) GERD (gastroesophageal reflux disease) 09/17/2023 Hyperlipidemia ([facility]) 09/17/2023 Hypertension ([facility]) 07/10/2023 Insomnia 09/17/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 ([facility]) Lower extremity edema 09/17/2023 Mixed hyperlipidemia ([facility]) Morbid (severe) obesity due to excess calories ([facility]) Obstructive sleep apnea 07/10/2023 PAD (peripheral artery disease) ([facility]) 09/17/2023 Pancreatitis 09/17/2023 Pneumonia 09/17/2023 Proteinuria, unspecified Pulmonary hypertension ([facility]) 09/17/2023 Radiculopathy, lumbar region 09/17/2023 Tobacco user 09/17/2023 Type 2 diabetes mellitus with complication, with long-term current use of insulin ([facility]) 07/10/2023 Unilateral primary osteoarthritis, right [...] List Items Addressed This Visit Diabetic neuropathy ([facility]) Continue with tristan [place] reviewed Fu in 3 months COPD (chronic obstructive pulmonary disease) ([facility]) Stable at this time, no changes in meds Encouraged smoking cessation Cont with dr Yañez Hypertension ([facility]) - Primary Please check blood pressure daily and record DASH diet Limit caffeine Take medication as directed Contact office if chest pain, pressure, dizziness, shortness of breath, swelling legs Recommend slow position changes Current meds: hydralazine, lisinopril, Type 2 diabetes mellitus with complication, with long-term current use of insulin ([facility]) Check blood sugars daily, notify [...] take over prescribing PAD (peripheral artery disease) (CMS/[facility]) Asa, statin Quit smoking BP [...] of the risks of continued smoking: stroke, DC, all forms of cancer, lung disease, and [...] 1 cm to 4 cm in diameter ([facility]/HCC) Continue with Urology Kidney stone Continue with Urology Non-seasonal allergic rhinitis Relevant Medications cetirizine (ZyrTEC) 10 MG tablet Critical limb ischemia of right lower extremity ([facility]/HCC) Saw vascular, does have narrowing in arteries in legs, and thus the wounds not healing At this point they strongly urge to quit smoking or risk limb amputation Cont asa and statin Also good blood pressure and sugar control Venous ulcer of right leg ([facility]) Encounter for smoking cessation counseling Relevant Medications nicotine (Nicoderm, Step 1) 21 MG/24HR patch Other Visit Diagnoses Type 2 diabetes mellitus with unspecified complications ([facility]) Quitting smokinppd, chantix not helped, ] Face time with pt, spent 15 minutes with pt Associated Problem(s): Tobacco user The patient has been advised of the risks of continued smoking: stroke, DC, all forms of cancer, lung disease, and [...] complication, with long-term current use of insulin (CMS/[facility]) Check blood sugars daily, notify [...] in 3 months documented in this encounter [facility] 06-11-2024 Hospital Discharge instructions Patient Education 06/11/2024 [...] require a prescription. You can also purchase xnmd-efy-bqvoaee medicines. Medicines may have nicotine in them [...] and encouragement. Call telephone quitlines, such as 7-034-WINN-NOW, reach out to support groups, or work [...] provider. Document Revised: 06/16/2022 Document Reviewed: 06/16/2022 [employer] Patient Education 2023 Jukely. 06/11/2024 10:39:22 Dietary Guidelines to Help Prevent [...] include: ?8 oz (237 mL) of milk, tzvfiho-ffobnefoblzy-tfytx milk, and calcium-fortifiedfruit juice. Calcium-fortified means that [...] ?Spinach (cooked), rhubarb, beets, sweet potatoes, and Latvian chard. ?Peanuts. ?Potato chips, haitian fries, and baked potatoes with skin on. ?Nuts and nut products. ?Chocolate. If you regularly take a diuretic medicine, make sure to eat at least 1 or 2 servings of fruits or vegetables that are high in potassium each day. These include: ?Avocado. ?Banana. ?Bennett, prune, carrot, or tomato juice. ?Baked potato. [...] magnesium, fish oil, or vitamin B6. Take tzoa-jzf-oyavuiq and prescription medicines only as told by [...] Casseroles. Pizza. Lasagna. Frozen meals. Potato chips. Belarusian fries. The items listed above may not [...] provider. Document Revised: 10/05/2022 Document Reviewed: 10/05/2022 [employer] Patient Education 2023 Jukely. Follow Up Care 05/06/2024 08:24:56 With:REGLA PHIPPS, Elbert Joya, URL Address: [facility] [address], [place] [id number]- When: Unknown [facility] 05-27-2024 History of Present illness Narrative Mitzi [...] or chew. ergocalciferol (Vitamin D2) 1.25 MG (49205 UT) capsule TAKE 1 CAPSULE BY MOUTH ONE TIME PER WEEK furosemide (LASIX) 20 mg, Oral, Daily PRN, Take in the afternoon as needed furosemide (LASIX) 40 mg, Oral, Daily Glucose Blood (ACCU-CHEK JAQUI PLUS ) 4 times daily hydrALAZINE (APRESOLINE) 25 mg, Oral, 2 times daily HYDROcodone-acetaminophen ([place]) 5-325 MG tablet 1 tablet, 3 times [...] CT Albuminuria 09/17/2023 Angiomyolipoma Anxiety and depression ([facility]) 07/10/2023 Asthma ([facility]) 07/10/2023 Body mass index (BMI) 50.0-59.9, adult ([facility]) Cellulitis of left lower extremity Cervical cancer ([facility]) 09/17/2023 Chronic pain of both knees 09/17/2023 COPD (chronic obstructive pulmonary disease) ([facility]) 07/10/2023 COPD exacerbation ([facility]) 09/17/2023 Decreased functional mobility 09/17/2023 Diabetic neuropathy ([facility]) 07/10/2023 Dietary counseling and surveillance Edema 07/10/2023 Elevated sed rate Elevated WBC count GERD (gastroesophageal reflux disease) 09/17/2023 Hyperlipidemia ([facility]) 09/17/2023 Hypertension ([facility]) 07/10/2023 Insomnia 09/17/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 ([facility]) Lower extremity edema 09/17/2023 Morbid (severe) obesity due to excess calories ([facility]) Obstructive sleep apnea 07/10/2023 PAD (peripheral artery disease) ([facility]) 09/17/2023 Pancreatitis 09/17/2023 Pneumonia 09/17/2023 Proteinuria, unspecified Pulmonary hypertension ([facility]) 09/17/2023 Radiculopathy, lumbar region 09/17/2023 Tobacco user 09/17/2023 Type 2 diabetes mellitus with complication, with long-term current use of insulin ([facility]) 07/10/2023 Unilateral primary [...] hyperglycemia, with long-term current use of insulin ([facility]) - POCT glucose manually resulted - POCT glycosylated hemoglobin (Hb A1C) docked device We will continue with Lantus 58, lispro 02/16/12 according to meal size, Mounjaro 15 mg once weekly, Farxiga 5 mg once a day Encounter for dietary consultation Vitamin D deficiency Primary hypertension ([facility]) To follow with her PCP Insulin long-term use ([facility]) Hyperlipemia, mixed ([facility]) Continue with Zocor 10 mg once daily Microalbuminuria Class 3 severe obesity due to excess calories with serious comorbidity and body mass index (BMI) of 50.0 to 59.9 in adult ([facility]) Diet and exercise reviewed with [...] blood glucose range is 130-140 mg/dl. An ITLA inhibitor/angiotensin II receptor eun is being taken. She does not see a per diem clerk.Eye exam is not current. Hypertension This [...] or chew. ergocalciferol (Vitamin D2) 1.25 MG (69785 UT) capsule TAKE 1 CAPSULE BY MOUTH ONE TIME PER WEEK furosemide (LASIX) 20 mg, Oral, Daily PRN, Take in the afternoon as needed furosemide (LASIX) 40 mg, Oral, Daily Glucose Blood (ACCU-CHEK JAQUI PLUS ) 4 times daily HumaLOG KWIKPEN 100 UNIT/ML injection Subcutaneous hydrALAZINE (APRESOLINE) 25 mg, Oral, 2 times daily HYDROcodone-acetaminophen ([place]) 5-325 MG tablet 1 tablet, 3 times [...] CT Albuminuria 09/17/2023 Angiomyolipoma Anxiety and depression ([facility]) 07/10/2023 Asthma ([facility]) 07/10/2023 Cellulitis of left lower extremity Cervical cancer ([facility]) 09/17/2023 Chronic pain of both knees 09/17/2023 COPD (chronic obstructive pulmonary disease) ([facility]) 07/10/2023 COPD exacerbation ([facility]) 09/17/2023 Decreased functional mobility 09/17/2023 Diabetic neuropathy ([facility]) 07/10/2023 Edema 07/10/2023 Elevated sed rate Elevated WBC count GERD (gastroesophageal reflux disease) 09/17/2023 Hyperlipidemia ([facility]) 09/17/2023 Hypertension ([facility]) 07/10/2023 Insomnia 09/17/2023 Lower extremity edema 09/17/2023 Obstructive sleep apnea 07/10/2023 PAD (peripheral artery disease) ([facility]) 09/17/2023 Pancreatitis 09/17/2023 Pneumonia 09/17/2023 Pulmonary hypertension ([facility]) 09/17/2023 Radiculopathy, lumbar region 09/17/2023 Tobacco user 09/17/2023 Type 2 diabetes mellitus with complication, with long-term current use of insulin ([facility]) 07/10/2023 Unilateral primary [...] smoking cessation Cont with dr Yañez Hypertension ([facility]) Stable on current meds Refill meds Relevant Medications hydrALAZINE (Apresoline) 25 MG tablet lisinopril 20 MG tablet Type 2 diabetes mellitus with complication, with long-term current use of insulin ([facility]) Check blood sugars daily, follow [...] 81 MG chewable tablet Anxiety and depression ([facility]/HCC) Relevant Medications DULoxetine (Cymbalta) [address] capsule Bilateral lower extremity edema Stable on current meds Insomnia Relevant Medications amitriptyline (Elavil) 25 MG tablet Tobacco user Urged to quit Non-seasonal allergic rhinitis Relevant Medications cetirizine (ZyrTEC) 10 MG tablet Hyperpigmentation of skin Will try cerevue ointment to see if helps Other Visit Diagnoses Type 2 diabetes mellitus with unspecified complications ([facility]/HCC) Relevant Medications dapagliflozin (Farxiga) 10 MG Gastro-esophageal reflux disease without esophagitis Relevant Medications omeprazole (PriLOSEC) [address] capsule Edema, unspecified Relevant Medications potassium chloride ER (Micro-K) 10 MEQ ER capsule Edema Relevant Medications potassium chloride ER (Micro-K) 10 MEQ ER capsule Chronic obstructive pulmonary disease, unspecified ([facility]) Relevant Medications Roflumilast 500 MCG tablet documented in this encounter [facility] 11-15-2022 Hospital Discharge instructions Patient Education 11/15/2022 [...] include: ?8 oz (237 mL) of milk, bcgotyr-silutdieautf-fshpx milk, and calcium-fortifiedfruit juice. Calcium-fortified means that [...] ?Spinach (cooked), rhubarb, beets, sweet potatoes, and Latvian chard. ?Peanuts. ?Potato chips, haitian fries, and baked potatoes with skin on. ?Nuts and nut products. ?Chocolate. If you regularly take a diuretic medicine, make sure to eat at least 1 or 2 servings of fruits or vegetables that are high in potassium each day. These include: ?Avocado. ?Banana. ?Bennett, prune, carrot, or tomato juice. ?Baked potato. [...] magnesium, fish oil, or vitamin B6. Take sgph-jsl-hcnxnng and prescription medicines only as told by [...] Casseroles. Pizza. Lasagna. Frozen meals. Potato chips. Belarusian fries. The items listed above may not [...] provider. Document Revised: 03/06/2022 Document Reviewed: 03/06/2022 Swift [employer] Patient Education 2022 Jukely. Follow Up Care 02/06/2022 11:44:09 With:SARAH VEGA PA-C, URL Address: [address] [place] [address] When: Unknown [facility] [place] 08-24-2022 Note CONSULTATION CONSULTATION DATE: 08/24/2022 [...] We maintain her on pain medication with [place] 5/325 t.i.d., diclofenac 75 mg b.i.d. Her [...] her at this point. A refill for [place] 5/325 t.i.d. and diclofenac 75 mg b.i.d. will be sent to the pharmacy. Vitamin compliance and nutrition were discussed and enforced. I did highly encourage her to use exercise bands to increase the strength in her lower extremities. We will see her in three months' time, unless otherwise indicated, and patient agrees. [facility] 05-11-2022 Note CONSULTATION CONSULTATION DATE: 05/11/2022 [...] 150. Medications include Lyrica 300 mg b.i.d., [place] 5/325 t.i.d., diclofenac 75 mg b.i.d. and [...] her medications today. We will maintain Lyrica, [place] and diclofenac at the set dose and frequency. We will follow-up in the clinic in three months' time. The patient is in agreement to this. Vitamin importance and nutrition were discussed. [facility] 04-20-2022 Note CONSULTATION CONSULTATION DATE: 04/20/2022 [...] medications include Tylenol, Lyrica 300 mg b.i.d., [place] 5/325 t.i.d., amitriptyline, diclofenac and duloxetine. Patient's [...] be followed up in the clinic. [facility] 03-08-2022 Evaluation note Encounter Date Diagnosis [...] to the [facility]. Thrombocytopenia is unclear etiology. [employer] Other 08-15-2022 Evaluation note* Encounter Date Diagnosis [...] follow with Dr. Souza and Dr. Arauz. [employer] Other 08-01-2022 Hospital Discharge instructions Patient Education [...] fried and sweet foods. General instructions Take lwue-izd-aiwdoeo and prescription medicines only as told by [...] 04/21/2010 Document Revised: 10/16/2019 Document Reviewed: 07/11/2018 [employer] Patient Education 2020 Jukely. Follow Up Care 01/05/2022 12:02:03 With:REGLA PHIPPS, Elbert R, URL Address: [facility] [address] [place] [id number] [phone] When:Within 6 Month(s) Comments:w/ repeat CT A/P [facility] 07-14-2022 NoteCONSULTATION PROCEDURE DATE: 01/19/2022 PRE [...] pattern and the patient tolerated it well. [facility] Signed and Approved by: GIL VALENZUELA . 01/27/2022 14:15:00[facility]07-14-2022 NoteCONSULTATION CONSULTATION DATE: 01/19/2022 This is [...] today. Medications include Lyrica 300 mg b.i.d., [place] 5/325 t.i.d., diclofenac 75 mg b.i.d. and [...] in three months' time unless otherwise indicated. [facility] Signed and Approved by: GIL VALENZUELA . 01/27/2022 [facility]ments Appointment Date:08/14/2022 09:15:00 AM Scheduled Provider:Elbert ARAUZ MD Location:[facility] Appointment Type:URO Office Visit [facility] evaluation + Plan note Future Appointments Appointment Date:04/22/2024 10:00:00 AM Scheduled Provider:SARAH VEGA PA-C Location:[facility] Appointment Type:URO Office Visit [facility] evaluation note* Diagnosis Type 2 diabetes mellitus with unspecified complications (CMS/HCC) Edema, unspecified Edema [facility] Diagnosis Vaginal yeast infection- Primary Candidiasis of vulva and vagina [facility] Diagnosis Primary hypertension (CMS/HCC)- Primary Unspecified essential hypertension Insomnia Insomnia, unspecified Type 2 diabetes mellitus with complication, with long-term current use of insulin ([facility]) Non-seasonal allergic rhinitis, unspecified trigger Type 2 diabetes mellitus with unspecified complications ([facility]) Anxiety and depression ([facility]) Gastro-esophageal reflux disease without esophagitis Edema, unspecified Edema Diabetic polyneuropathy associated with type 2 diabetes mellitus ([facility]) Chronic obstructive pulmonary disease, unspecified ([facility]) Pulmonary emphysema, unspecified emphysema type ([facility]) Bilateral lower extremity edema Tobacco user Tobacco use disorder Hyperpigmentation of skin Other dyschromia documented in this encounter [facility]* Diagnosis Obstructive sleep apnea- Primary Obstructive sleep apnea (adult) (pediatric) Pulmonary emphysema, unspecified emphysema type ([facility]) Primary hypertension ([facility]) Unspecified essential hypertension Type 2 diabetes mellitus with complication, with long-term current use of insulin ([facility]) Anxiety and depression ([facility]) Bilateral lower extremity edema Pulmonary emphysema, unspecified emphysema type ([facility])- Primary Primary hypertension ([facility]) Unspecified essential hypertension Class 3 severe obesity with serious comorbidity and body mass index (BMI) of 50.0 to 59.9 in adult, unspecified obesity type ([facility]) Obstructive sleep apnea Obstructive sleep apnea (adult) (pediatric) Pulmonary hypertension ([facility]) Other chronic pulmonary heart diseases Tobacco user Tobacco use disorder Cardiomegaly Primary hypertension ([facility])- Primary Unspecified essential hypertension Gastroesophageal reflux disease, unspecified whether esophagitis present Type 2 diabetes mellitus with complication, with long-term current use of insulin ([facility]) Mixed hyperlipidemia ([facility]) Mixed hyperlipidemia Tobacco user Tobacco use disorder Encounter for screening mammogram for malignant neoplasm of breast Chronic obstructive pulmonary disease, unspecified ([facility]) Other specified chronic obstructive pulmonary disease ([facility]) Anxiety and depression ([facility]) Edema, unspecified Edema Hyperlipidemia, unspecified ([facility]) Diabetic polyneuropathy associated with type 2 diabetes mellitus ([facility]) Gout, unspecified cause, unspecified chronicity, unspecified site Non-seasonal allergic rhinitis, unspecified trigger Bilateral lower extremity edema COPD exacerbation ([facility]) Obstructive chronic bronchitis with exacerbation Pulmonary emphysema, unspecified emphysema type ([facility]) Venous insufficiency Unspecified venous (peripheral) insufficiency Candidiasis of breast COPD exacerbation ([facility])- Primary Obstructive chronic bronchitis with [...] Major depressive disorder, single episode, mild (HCC) ([facility]) Major depressive disorder, single episode, [...] (CMS/HCC) Unspecified essential hypertension Insulin long-term use (CMS/[facility]) Encounter for long-term (current) use of insulin Hyperlipemia, mixed ([facility]) Mixed hyperlipidemia Microalbuminuria Proteinuria Class 3 severe obesity due to excess calories with serious comorbidity and body mass index (BMI) of 50.0 to 59.9 in adult ([facility]) documented in this encounter [facility]* Diagnosis Hyperlipidemia, unspecified ([facility]) Bilateral lower extremity edema documented in this encounter [facility]* Diagnosis Vitamin D deficiency, unspecified documented in this encounter [facility]* Diagnosis Obstructive sleep apnea- Primary Obstructive sleep apnea (adult) (pediatric) Pulmonary emphysema, unspecified emphysema type ([facility]) Primary hypertension ([facility]) Unspecified essential hypertension Type 2 diabetes mellitus with complication, with long-term current use of insulin ([facility]) Anxiety and depression ([facility]) Bilateral lower extremity edema Pulmonary emphysema, unspecified emphysema type ([facility])- Primary Primary hypertension ([facility]) Unspecified essential hypertension Class 3 severe obesity with serious comorbidity and body mass index (BMI) of 50.0 to 59.9 in adult, unspecified obesity type ([facility]) Obstructive sleep apnea Obstructive sleep apnea (adult) (pediatric) Pulmonary hypertension ([facility]) Other chronic pulmonary heart diseases Tobacco user Tobacco use disorder Cardiomegaly Primary hypertension ([facility])- Primary Unspecified essential hypertension Gastroesophageal reflux disease, unspecified whether esophagitis present Type 2 diabetes mellitus with complication, with long-term current use of insulin ([facility]) Mixed hyperlipidemia ([facility]) Mixed hyperlipidemia Tobacco user Tobacco use disorder Encounter for screening mammogram for malignant neoplasm of breast Chronic obstructive pulmonary disease, unspecified ([facility]) Other specified chronic obstructive pulmonary disease ([facility]) Anxiety and depression ([facility]) Edema, unspecified Edema Hyperlipidemia, unspecified ([facility]) Diabetic polyneuropathy associated with type 2 diabetes mellitus ([facility]) Gout, unspecified cause, unspecified chronicity, unspecified site Non-seasonal allergic rhinitis, unspecified trigger Bilateral lower extremity edema COPD exacerbation ([facility]) Obstructive chronic bronchitis with exacerbation Pulmonary emphysema, unspecified emphysema type ([facility]) Venous insufficiency Unspecified venous (peripheral) insufficiency Candidiasis of breast COPD exacerbation ([facility])- Primary Obstructive chronic bronchitis with exacerbation Pulmonary hypertension ([facility]) Other chronic pulmonary heart diseases [...] of breast Chronic obstructive pulmonary disease, unspecified (CMS/[facility]) Other specified chronic obstructive pulmonary disease (CMS/HCC) Anxiety and depression (CMS/HCC) Edema, unspecified Edema Hyperlipidemia, unspecified (CMS/[facility]) Diabetic polyneuropathy associated with type 2 diabetes mellitus (CMS/[facility]) Gout, unspecified cause, unspecified chronicity, unspecified site Non-seasonal allergic rhinitis, unspecified trigger Bilateral lower extremity edema COPD exacerbation (CMS/[facility]) Obstructive chronic bronchitis with exacerbation Pulmonary emphysema, unspecified emphysema type (CMS/HCC) Venous insufficiency Unspecified venous (peripheral) insufficiency Candidiasis of breast COPD exacerbation (CMS/HCC)- Primary Obstructive chronic bronchitis with exacerbation Pulmonary hypertension (CMS/HCC) Other chronic pulmonary heart diseases Class 3 severe obesity with serious comorbidity and body mass index (BMI) of 50.0 to 59.9 in adult, unspecified obesity type ([facility]/HCC) Encounter for subsequent annual wellness visit (AWV) in Medicare patient- Primary Type 2 diabetes mellitus with unspecified complications (CMS/HCC) Pulmonary emphysema, unspecified emphysema type (CMS/HCC) Moderate persistent asthma without complication (CMS/HCC) Primary hypertension (CMS/HCC) Unspecified essential hypertension Type 2 diabetes mellitus with complication, with long-term current use of insulin (CMS/[facility]) Class 3 severe obesity with serious comorbidity and body mass index (BMI) of 50.0 to 59.9 in adult, unspecified obesity type (CMS/HCC) Tobacco user Tobacco use disorder Other headache syndrome Malignant neoplasm of cervix uteri, unspecified (CMS/HCC) Other specified disorders of adrenal gland (CMS/HCC) Major depressive disorder, single episode, mild (HCC) ([facility]/HCC) Major depressive disorder, single episode, mild Non-pressure [...] complication, with long-term current use of insulin (CMS/[facility]) Non-seasonal allergic rhinitis, unspecified trigger Type 2 diabetes mellitus with unspecified complications (CMS/[facility]) Anxiety and depression (CMS/[facility]) Gastro-esophageal reflux disease without esophagitis Edema, unspecified Edema Diabetic polyneuropathy associated with type 2 diabetes mellitus ([facility]) Chronic obstructive pulmonary disease, unspecified (CMS/[facility]) Pulmonary emphysema, unspecified emphysema type (CMS/HCC) Bilateral lower extremity edema Tobacco user Tobacco use disorder Hyperpigmentation of skin Other dyschromia Primary hypertension (CMS/HCC)- Primary Unspecified essential hypertension Diabetic polyneuropathy associated with type 2 diabetes mellitus (CMS/HCC) Pulmonary emphysema, unspecified emphysema type (CMS/HCC) Critical limb ischemia of right lower extremity (CMS/HCC) PAD (peripheral artery disease) ([facility]) Unspecified peripheral vascular disease Gastroesophageal reflux disease, unspecified whether esophagitis present Bilateral lower extremity edema Venous ulcer of right leg ([facility]) Type 2 diabetes mellitus with complication, with long-term current use of insulin ([facility]) Tobacco user Tobacco use disorder Encounter for smoking cessation counseling Kidney stone Calculus of kidney Adrenal mass 1 cm to 4 cm in diameter ([facility]) Radiculopathy, lumbar region Thoracic or lumbosacral neuritis or radiculitis, unspecified Non-seasonal allergic rhinitis, unspecified trigger Type 2 diabetes mellitus with unspecified complications (CMS/HCC) documented in this encounter [facility] HealthcareEvaluation note* Diagnosis Obstructive sleep apnea- Primary Obstructive sleep apnea (adult) (pediatric) Pulmonary emphysema, unspecified emphysema type (CMS/HCC) Primary hypertension (CMS/[facility]) Unspecified essential hypertension Type 2 diabetes mellitus with complication, with long-term current use of insulin ([facility]) Anxiety and depression (CMS/[facility]) Bilateral lower extremity edema Pulmonary emphysema, unspecified emphysema type ([facility]/HCC)- Primary Primary hypertension ([facility]) Unspecified essential hypertension Class 3 severe obesity with serious comorbidity and body mass index (BMI) of 50.0 to 59.9 in adult, unspecified obesity type ([facility]) Obstructive sleep apnea Obstructive sleep apnea (adult) (pediatric) Pulmonary hypertension ([facility]) Other chronic pulmonary heart diseases Tobacco user Tobacco use disorder Cardiomegaly Primary hypertension ([facility])- Primary Unspecified essential hypertension Gastroesophageal reflux disease, unspecified whether esophagitis present Type 2 diabetes mellitus with complication, with long-term current use of insulin ([facility]) Mixed hyperlipidemia ([facility]) Mixed hyperlipidemia Tobacco user Tobacco use disorder Encounter for screening mammogram for malignant neoplasm of breast Chronic obstructive pulmonary disease, unspecified ([facility]) Other specified chronic obstructive pulmonary disease ([facility]) Anxiety and depression ([facility]) Edema, unspecified Edema Hyperlipidemia, unspecified ([facility]) Diabetic polyneuropathy associated with type 2 diabetes mellitus ([facility]) Gout, unspecified cause, unspecified chronicity, unspecified site Non-seasonal allergic rhinitis, unspecified trigger Bilateral lower extremity edema COPD exacerbation ([facility]) Obstructive chronic bronchitis with exacerbation Pulmonary emphysema, unspecified emphysema type ([facility]) Venous insufficiency Unspecified venous (peripheral) insufficiency Candidiasis of breast COPD exacerbation ([facility])- Primary Obstructive chronic bronchitis with exacerbation Pulmonary hypertension ([facility]) Other chronic pulmonary heart diseases Class 3 severe obesity with serious comorbidity and body mass index (BMI) of 50.0 to 59.9 in adult, unspecified obesity type ([facility]) Encounter for subsequent annual wellness visit (AWV) in Medicare patient- Primary Type 2 diabetes mellitus with unspecified complications ([facility]) Pulmonary emphysema, unspecified emphysema type ([facility]) Moderate persistent asthma without complication ([facility]) Primary hypertension ([facility]) Unspecified essential hypertension Type 2 diabetes mellitus with complication, with long-term current use of insulin ([facility]) Class 3 severe obesity with serious comorbidity and body mass index (BMI) of 50.0 to 59.9 in adult, unspecified obesity type ([facility]) Tobacco user Tobacco use disorder [...] complication, with long-term current use of insulin (CMS/[facility]) Non-seasonal allergic rhinitis, unspecified trigger Type 2 diabetes mellitus with unspecified complications (CMS/HCC) Anxiety and depression (CMS/[facility]) Gastro-esophageal reflux disease without esophagitis [...] Critical limb ischemia of right lower extremity (CMS/[facility]) PAD (peripheral artery disease) ([facility]) Unspecified peripheral vascular disease Gastroesophageal reflux disease, unspecified whether esophagitis present Bilateral lower extremity edema Venous ulcer of right leg (CMS/[facility]) Type 2 diabetes mellitus with complication, with long-term current use of insulin (CMS/HCC) Tobacco user Tobacco use disorder Encounter for smoking cessation counseling Kidney stone Calculus of kidney Adrenal mass 1 cm to 4 cm in diameter ([facility]) Radiculopathy, lumbar region Thoracic or lumbosacral neuritis or radiculitis, unspecified Non-seasonal allergic rhinitis, unspecified trigger Type 2 diabetes mellitus with unspecified complications (CMS/HCC) Anxiety and depression (CMS/HCC)- Primary Morbid (severe) obesity due to excess calories (CMS/[facility]) Body mass index (BMI) 50.0-59.9, adult (CMS/[facility]) Malignant neoplasm of cervix uteri, unspecified ([facility]) Diabetic polyneuropathy associated with type 2 diabetes mellitus ([facility]) Chronic diastolic heart failure ([facility] Chronic diastolic heart failure Primary hypertension ([facility]) Unspecified essential hypertension 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 ([facility]) Gastroesophageal reflux disease, unspecified whether esophagitis present Bilateral lower extremity edema Type 2 diabetes mellitus with complication, with long-term current use of insulin ([facility]) Tobacco user Tobacco use disorder Mixed hyperlipidemia ([facility]) Mixed hyperlipidemia Gout, unspecified cause, unspecified chronicity, unspecified site Vitamin deficiency Unspecified vitamin deficiency Gastro-esophageal reflux disease without esophagitis Edema, unspecified Edema Hyperlipidemia, unspecified ([facility]) Encounter for smoking cessation counseling Venous ulcer of right leg ([facility]) Antibiotic-induced yeast infection documented in this encounter [facility] HealthcareEvaluation note* Diagnosis Obstructive sleep apnea- Primary Obstructive sleep apnea (adult) (pediatric) Pulmonary emphysema, unspecified emphysema type ([facility]) Primary hypertension ([facility]) Unspecified essential hypertension Type 2 diabetes mellitus with complication, with long-term current use of insulin ([facility]) Anxiety and depression ([facility]) Bilateral lower extremity edema Pulmonary emphysema, unspecified emphysema type ([facility])- Primary Primary hypertension ([facility]) Unspecified essential hypertension Class 3 severe obesity with serious comorbidity and body mass index (BMI) of 50.0 to 59.9 in adult, unspecified obesity type Obstructive sleep apnea Obstructive sleep apnea (adult) (pediatric) Pulmonary hypertension ([facility]) Other chronic pulmonary heart diseases Tobacco user Tobacco use disorder Cardiomegaly Primary hypertension ([facility])- Primary Unspecified essential hypertension Gastroesophageal reflux disease, unspecified whether esophagitis present Type 2 diabetes mellitus with complication, with long-term current use of insulin ([facility]) Mixed hyperlipidemia ([facility]) Mixed hyperlipidemia Tobacco user Tobacco use disorder Encounter for screening mammogram for malignant neoplasm of breast Chronic obstructive pulmonary disease, unspecified Other specified chronic obstructive pulmonary disease Anxiety and depression ([facility]) Edema, unspecified Edema Hyperlipidemia, unspecified ([facility]) Diabetic polyneuropathy associated with type 2 diabetes mellitus ([facility]) Gout, unspecified cause, unspecified chronicity, [...] Major depressive disorder, single episode, mild (HCC) (CMS/[facility]) Major depressive disorder, single episode, [...] lower extremity (CMS/HCC) PAD (peripheral artery disease) ([facility] [place]) Unspecified peripheral vascular disease Gastroesophageal reflux disease, unspecified whether esophagitis present Bilateral lower extremity edema Venous ulcer of right leg ([facility]) Type 2 diabetes mellitus with complication, with long-term current use of insulin ([facility]) Tobacco user Tobacco use disorder Encounter for smoking cessation counseling Kidney stone Calculus of kidney Adrenal mass 1 cm to 4 cm in diameter ([facility] [place]) Radiculopathy, lumbar region Thoracic or lumbosacral neuritis or radiculitis, unspecified Non-seasonal allergic rhinitis, unspecified trigger Type 2 diabetes mellitus with unspecified complications Anxiety and depression ([facility] [place])- Primary Morbid (severe) obesity due to excess calories ([facility] [place]) Body mass index (BMI) 50.0-59.9, adult ([facility] [place]) Malignant neoplasm of cervix uteri, unspecified Diabetic polyneuropathy associated with type 2 diabetes mellitus ([facility]) Chronic diastolic heart failure ([facility] [place]) Chronic diastolic heart failure Primary hypertension ([facility] [place]) Unspecified essential hypertension 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 Gastroesophageal reflux disease, unspecified whether esophagitis present Bilateral lower extremity edema Type 2 diabetes mellitus with complication, with long-term current use of insulin ([facility]) Tobacco user Tobacco use disorder Mixed hyperlipidemia ([facility] [place]) Mixed hyperlipidemia Gout, unspecified cause, unspecified chronicity, unspecified site Vitamin deficiency Unspecified vitamin deficiency Gastro-esophageal reflux disease without esophagitis Edema, unspecified Edema Hyperlipidemia, unspecified ([facility] [place]) Encounter for smoking cessation counseling Venous ulcer of right leg ([facility] [place]) Antibiotic-induced yeast infection Type 2 diabetes mellitus with hyperglycemia, with long-term current use of insulin ([facility] [place])- Primary Encounter for dietary consultation Vitamin D deficiency Primary hypertension ([facility] [place]) Unspecified essential hypertension Insulin long-term use ([facility] [place]) Encounter for long-term (current) use of insulin Hyperlipemia, mixed ([facility]) Mixed hyperlipidemia Microalbuminuria Proteinuria Class 3 severe obesity due to excess calories with serious comorbidity and body mass index (BMI) of 50.0 to 59.9 in adult documented in this encounter [facility] HealthcareEvaluation note* Diagnosis Obstructive sleep apnea- Primary Obstructive sleep apnea (adult) (pediatric) Pulmonary emphysema, unspecified emphysema type ([facility]) Primary hypertension ([facility] [place]) Unspecified essential hypertension Type 2 diabetes mellitus with complication, with long-term current use of insulin (CMS/[facility]) Anxiety and depression (CMS/[facility]) Bilateral lower extremity edema Pulmonary emphysema, unspecified emphysema type (CMS/HCC)- Primary Primary hypertension ([facility]) Unspecified essential hypertension Class 3 severe obesity with serious comorbidity and body mass index (BMI) of 50.0 to 59.9 in adult, unspecified obesity type Obstructive sleep apnea Obstructive sleep apnea (adult) (pediatric) Pulmonary hypertension (CMS/HCC) Other chronic pulmonary heart diseases Tobacco user Tobacco use disorder Cardiomegaly Primary hypertension (CMS/[facility])- Primary Unspecified essential hypertension Gastroesophageal reflux disease, unspecified whether esophagitis present Type 2 diabetes mellitus with complication, with long-term current use of insulin (CMS/[facility]) Mixed hyperlipidemia (CMS/[facility]) Mixed hyperlipidemia Tobacco user Tobacco use disorder Encounter for screening mammogram for malignant neoplasm of breast Chronic obstructive pulmonary disease, unspecified Other specified chronic obstructive pulmonary disease Anxiety and depression (CMS/[facility]) Edema, unspecified Edema Hyperlipidemia, unspecified (CMS/[facility]) Diabetic polyneuropathy associated with type 2 diabetes mellitus ([facility]) Gout, unspecified cause, unspecified chronicity, unspecified site Non-seasonal allergic rhinitis, unspecified trigger Bilateral lower extremity edema COPD exacerbation (CMS/[facility]) Obstructive chronic bronchitis with exacerbation Pulmonary emphysema, unspecified emphysema type (CMS/HCC) Venous insufficiency Unspecified venous (peripheral) insufficiency Candidiasis of breast COPD exacerbation (CMS/[facility])- Primary Obstructive chronic bronchitis with exacerbation Pulmonary hypertension (CMS/[facility]) Other chronic pulmonary heart diseases Class 3 severe obesity with serious comorbidity and body mass index (BMI) of 50.0 to 59.9 in adult, unspecified obesity type Encounter for subsequent annual wellness visit (AWV) in Medicare patient- Primary Type 2 diabetes mellitus with unspecified complications Pulmonary emphysema, unspecified emphysema type (CMS/[facility]) Moderate persistent asthma without complication (CMS/[facility]) Primary hypertension ([facility]) Unspecified essential hypertension Type 2 diabetes mellitus with complication, with long-term current use of insulin ([facility]) Class 3 severe obesity with serious comorbidity and body mass index (BMI) of 50.0 to 59.9 in adult, unspecified obesity type Tobacco user Tobacco use disorder Other headache syndrome Malignant neoplasm of cervix uteri, unspecified Other specified disorders of adrenal gland Major depressive disorder, single episode, mild (HCC) (CMS/[facility]) Major depressive disorder, single episode, mild 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 exposed Chronic respiratory failure, unspecified whether with hypoxia or hypercapnia Disorder of adrenal gland, unspecified Non-pressure chronic ulcer of other part of right lower leg limited to breakdown of skin ([facility]) Non-recurrent acute suppurative otitis media of left ear without spontaneous rupture of tympanic membrane Primary hypertension ([facility])- Primary Unspecified essential hypertension Insomnia Insomnia, unspecified Type 2 diabetes mellitus with complication, with long-term current use of insulin ([facility]) Non-seasonal allergic rhinitis, unspecified trigger Type 2 diabetes mellitus with unspecified complications Anxiety and depression ([facility]) Gastro-esophageal reflux disease without esophagitis Edema, unspecified Edema Diabetic polyneuropathy associated with type 2 diabetes mellitus ([facility]) Chronic obstructive pulmonary disease, unspecified Pulmonary emphysema, unspecified emphysema type ([facility]) Bilateral lower extremity edema Tobacco user Tobacco use disorder Hyperpigmentation of skin Other dyschromia Primary hypertension ([facility])- Primary Unspecified essential hypertension Diabetic polyneuropathy associated with type 2 diabetes mellitus ([facility]) Pulmonary emphysema, unspecified emphysema type ([facility]) Critical limb ischemia of right lower extremity ([facility]) PAD (peripheral artery disease) ([facility]) Unspecified peripheral vascular disease Gastroesophageal reflux disease, unspecified whether esophagitis present Bilateral lower extremity edema Venous ulcer of right leg ([facility]) Type 2 diabetes mellitus with complication, with long-term current use of insulin ([facility]) Tobacco user Tobacco use disorder Encounter for smoking cessation counseling Kidney stone Calculus of kidney Adrenal mass 1 cm to 4 cm in diameter ([facility]) Radiculopathy, lumbar region Thoracic or lumbosacral neuritis or radiculitis, unspecified Non-seasonal allergic rhinitis, unspecified trigger Type 2 diabetes mellitus with unspecified complications Anxiety and depression ([facility])- Primary Morbid (severe) obesity due to excess calories ([facility]) Body mass index (BMI) 50.0-59.9, adult ([facility]) Malignant neoplasm of cervix uteri, unspecified Diabetic polyneuropathy associated with type 2 diabetes mellitus ([facility] Chronic diastolic heart failure ([facility] Chronic diastolic heart failure Primary hypertension ([facility]) Unspecified essential hypertension 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 Gastroesophageal reflux disease, unspecified whether esophagitis present Bilateral lower extremity edema Type 2 diabetes mellitus with complication, with long-term current use of insulin ([facility] Tobacco user Tobacco use disorder Mixed hyperlipidemia ([facility] [facility] Mixed hyperlipidemia Gout, unspecified cause, unspecified chronicity, unspecified site Vitamin deficiency Unspecified vitamin deficiency Gastro-esophageal reflux disease without esophagitis Edema, unspecified Edema Hyperlipidemia, unspecified ([facility]) Encounter for smoking cessation counseling Venous ulcer of right leg ([facility]) Antibiotic-induced yeast infection Chronic obstructive pulmonary disease, unspecified documented in this encounter [facility] HealthcareEvaluation note* Diagnosis Obstructive sleep apnea- Primary Obstructive sleep apnea (adult) (pediatric) Pulmonary emphysema, unspecified emphysema type ([facility]) Primary hypertension ([facility]) Unspecified essential hypertension Type 2 diabetes mellitus with complication, with long-term current use of insulin ([facility]) Anxiety and depression ([facility]) Bilateral lower extremity edema Pulmonary emphysema, unspecified emphysema type ([facility])- Primary Primary hypertension ([facility]) Unspecified essential hypertension Class 3 severe obesity with serious comorbidity and body mass index (BMI) of 50.0 to 59.9 in adult, unspecified obesity type Obstructive sleep apnea Obstructive sleep apnea (adult) (pediatric) Pulmonary hypertension ([facility]) Other chronic pulmonary heart diseases Tobacco user Tobacco use disorder Cardiomegaly Primary hypertension ([facility])- Primary Unspecified essential hypertension Gastroesophageal reflux disease, unspecified whether esophagitis present Type 2 diabetes mellitus with complication, with long-term current use of insulin ([facility]) Mixed hyperlipidemia ([facility]) Mixed hyperlipidemia Tobacco user Tobacco use disorder Encounter for screening mammogram for malignant neoplasm of breast Chronic obstructive pulmonary disease, unspecified Other specified chronic obstructive pulmonary disease Anxiety and depression ([facility]) Edema, unspecified Edema Hyperlipidemia, unspecified ([facility]) Diabetic polyneuropathy associated with type 2 diabetes mellitus ([facility]) Gout, unspecified cause, unspecified chronicity, unspecified site Non-seasonal allergic rhinitis, unspecified trigger Bilateral lower extremity edema COPD exacerbation ([facility]) Obstructive chronic bronchitis with exacerbation Pulmonary emphysema, unspecified emphysema type ([facility]) Venous insufficiency Unspecified venous (peripheral) insufficiency Candidiasis of breast COPD exacerbation ([facility])- Primary Obstructive chronic bronchitis with exacerbation Pulmonary hypertension ([facility]) Other chronic pulmonary heart diseases Class 3 severe obesity with serious comorbidity and body mass index (BMI) of 50.0 to 59.9 in adult, unspecified obesity type Encounter for subsequent annual wellness visit (AWV) in Medicare patient- Primary Type 2 diabetes mellitus with unspecified complications Pulmonary emphysema, unspecified emphysema type ([facility]) Moderate persistent asthma without complication (CMS/HCC) Primary hypertension ([facility]) Unspecified essential hypertension Type 2 diabetes mellitus with complication, with long-term current use of insulin ([facility]) Class 3 severe obesity with serious comorbidity and body mass index (BMI) of 50.0 to 59.9 in adult, unspecified obesity type Tobacco user Tobacco use disorder Other headache syndrome Malignant neoplasm of cervix uteri, unspecified Other specified disorders of adrenal gland Major depressive disorder, single episode, mild (HCC) ([facility]) Major depressive disorder, single episode, mild 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 exposed Chronic respiratory failure, unspecified whether with hypoxia or hypercapnia Disorder of adrenal gland, unspecified Non-pressure chronic ulcer of other part of right lower leg limited to breakdown of skin ([facility]) Non-recurrent acute suppurative otitis media of left ear without spontaneous rupture of tympanic membrane Primary hypertension ([facility])- Primary Unspecified essential hypertension Insomnia Insomnia, unspecified Type 2 diabetes mellitus with complication, with long-term current use of insulin ([facility]) Non-seasonal allergic rhinitis, unspecified trigger Type 2 diabetes mellitus with unspecified complications Anxiety and depression ([facility]) Gastro-esophageal reflux disease without esophagitis Edema, unspecified Edema Diabetic polyneuropathy associated with type 2 diabetes mellitus ([facility]) Chronic obstructive pulmonary disease, unspecified Pulmonary emphysema, unspecified emphysema type ([facility]/HCC) Bilateral lower extremity edema Tobacco user Tobacco use disorder Hyperpigmentation of skin Other dyschromia Primary hypertension (CMS/HCC)- Primary Unspecified essential hypertension Diabetic polyneuropathy associated with type 2 diabetes mellitus (CMS/[facility]) Pulmonary emphysema, unspecified emphysema type (CMS/HCC) Critical limb ischemia of right lower extremity ([facility]) PAD (peripheral artery disease) ([facility]) Unspecified peripheral vascular disease Gastroesophageal reflux disease, unspecified whether esophagitis present Bilateral lower extremity edema Venous ulcer of right leg ([facility]) Type 2 diabetes mellitus with complication, with long-term current use of insulin ([facility]) Tobacco user Tobacco use disorder Encounter for smoking cessation counseling Kidney stone Calculus of kidney Adrenal mass 1 cm to 4 cm in diameter ([facility]) Radiculopathy, lumbar region Thoracic or lumbosacral neuritis or radiculitis, unspecified Non-seasonal allergic rhinitis, unspecified trigger Type 2 diabetes mellitus with unspecified complications Anxiety and depression ([facility])- Primary Morbid (severe) obesity due to excess calories ([facility]) Body mass index (BMI) 50.0-59.9, adult ([facility]) Malignant neoplasm of cervix uteri, unspecified Diabetic polyneuropathy associated with type 2 diabetes mellitus ([facility]) Chronic diastolic heart failure ([facility]) Chronic diastolic heart failure Primary hypertension ([facility]) Unspecified essential hypertension 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 Gastroesophageal reflux disease, unspecified whether esophagitis present Bilateral lower extremity edema Type 2 diabetes mellitus with complication, with long-term current use of insulin ([facility]) Tobacco user Tobacco use disorder Mixed hyperlipidemia ([facility]) Mixed hyperlipidemia Gout, unspecified cause, unspecified chronicity, unspecified site Vitamin deficiency Unspecified vitamin deficiency Gastro-esophageal reflux disease without esophagitis Edema, unspecified Edema Hyperlipidemia, unspecified ([facility]) Encounter for smoking cessation counseling Venous ulcer of right leg ([facility]) Antibiotic-induced yeast infection Primary hypertension ([facility] [place])- Primary Unspecified essential hypertension Diabetic polyneuropathy associated with type 2 diabetes mellitus ([facility]) Chronic diastolic heart failure ([facility]) Chronic diastolic heart failure Bilateral lower extremity edema Morbid (severe) obesity due to excess calories ([facility]) Type 2 diabetes mellitus with complication, with long-term current use of insulin ([facility]) Anxiety and depression ([facility]) Cigarette nicotine dependence without complication Encounter for screening mammogram for malignant neoplasm of breast Insomnia Insomnia, unspecified Non-seasonal allergic rhinitis, unspecified trigger Type 2 diabetes mellitus with unspecified complications Vitamin D deficiency, unspecified Gastro-esophageal reflux disease without esophagitis PAD (peripheral artery disease) ([facility]) Unspecified peripheral vascular disease Gastroesophageal reflux disease, unspecified whether esophagitis present Venous ulcer of right leg ([facility]) documented in this encounter [facility] HealthcareEvaluation note* Diagnosis Obstructive sleep apnea- Primary Obstructive sleep apnea (adult) (pediatric) Pulmonary emphysema, unspecified emphysema type ([facility]) Primary hypertension Unspecified essential hypertension Type 2 diabetes mellitus with complication, with long-term current use of insulin (HCC) Anxiety and depression Bilateral lower extremity edema Pulmonary emphysema, unspecified emphysema type (HCC)- Primary Primary hypertension Unspecified essential hypertension Class 3 severe obesity with serious comorbidity and body mass index (BMI) of 50.0 to 59.9 in adult, unspecified obesity type ([facility]) Obstructive sleep apnea Obstructive sleep [...] to 59.9 in adult, unspecified obesity type ([facility] [place]) Encounter for subsequent [...] to 59.9 in adult, unspecified obesity type ([facility]) Tobacco user Tobacco use disorder [...] lower leg limited to breakdown of skin ([facility]) Non-recurrent acute suppurative otitis media of left ear without spontaneous rupture of tympanic membrane Primary hypertension- Primary Unspecified essential hypertension Insomnia Insomnia, unspecified Type 2 diabetes mellitus with complication, with long-term current use of insulin ([facility]) Non-seasonal allergic rhinitis, unspecified trigger Type 2 diabetes mellitus with unspecified complications ([facility]) Anxiety and depression Gastro-esophageal reflux disease without esophagitis Edema, unspecified Edema Diabetic polyneuropathy associated with type 2 diabetes mellitus ([facility]) Chronic obstructive pulmonary disease, unspecified ([facility]) Pulmonary emphysema, unspecified emphysema type ([facility]) Bilateral lower extremity edema Tobacco user Tobacco use disorder Hyperpigmentation of skin Other dyschromia Primary hypertension- Primary Unspecified essential hypertension Diabetic polyneuropathy associated with type 2 diabetes mellitus ([facility]) Pulmonary emphysema, unspecified emphysema type ([facility]) Critical limb ischemia of right lower extremity ([facility]) PAD (peripheral artery disease) Unspecified peripheral vascular disease Gastroesophageal reflux disease, unspecified whether esophagitis present Bilateral lower extremity edema Venous ulcer of right leg ([facility]) Type 2 diabetes mellitus with complication, with long-term current use of insulin ([facility]) Tobacco user Tobacco use disorder Encounter for smoking cessation counseling Kidney stone Calculus of kidney Adrenal mass 1 cm to 4 cm in diameter ([facility]) Radiculopathy, lumbar region Thoracic or lumbosacral neuritis or radiculitis, unspecified Non-seasonal allergic rhinitis, unspecified trigger Type 2 diabetes mellitus with unspecified complications ([facility]) Anxiety and depression- Primary Morbid (severe) obesity due to excess calories ([facility] [place]) Body mass index (BMI) 50.0-59.9, adult ([facility] [place]) Malignant neoplasm of cervix uteri, unspecified ([facility]) Diabetic polyneuropathy associated with type 2 diabetes mellitus ([facility]) Chronic diastolic heart failure (HCC) Chronic diastolic heart failure Primary hypertension Unspecified essential hypertension 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 ([facility]) Gastroesophageal reflux disease, unspecified whether esophagitis present Bilateral lower extremity edema Type 2 diabetes mellitus with complication, with long-term current use of insulin ([facility]) Tobacco user Tobacco use disorder [...] obesity due to excess calories ([facility]) Type 2 diabetes mellitus with [...] of left lower extremity- Primary COPD exacerbation ([facility]) Obstructive chronic bronchitis with exacerbation Primary hypertension Unspecified essential hypertension Pulmonary hypertension (HCC) Other chronic pulmonary heart diseases Morbid (severe) obesity due to excess calories ([facility]) Type 2 diabetes mellitus with complication, with long-term current use of insulin ([facility]) Anxiety and depression Fever, unspecified fever cause Hyperlipidemia, unspecified Tobacco user Tobacco use disorder Encounter for smoking cessation counseling documented in this encounter [facility] HealthcareEvaluation note* Diagnosis Obstructive sleep apnea- Primary Obstructive sleep apnea (adult) (pediatric) Pulmonary emphysema, unspecified emphysema type ([facility]) Primary hypertension ([facility]) Unspecified essential hypertension Type 2 diabetes mellitus with complication, with long-term current use of insulin ([facility]) Anxiety and depression ([facility]) Bilateral lower extremity edema Pulmonary emphysema, unspecified emphysema type ([facility])- Primary Primary hypertension ([facility]) Unspecified essential hypertension Class 3 severe obesity with serious comorbidity and body mass index (BMI) of 50.0 to 59.9 in adult, unspecified obesity type Obstructive sleep apnea Obstructive sleep apnea (adult) (pediatric) Pulmonary hypertension ([facility]) Other chronic pulmonary heart diseases Tobacco user Tobacco use disorder Cardiomegaly Primary hypertension ([facility])- Primary Unspecified essential hypertension Gastroesophageal reflux disease, unspecified whether esophagitis present Type 2 diabetes mellitus with complication, with long-term current use of insulin ([facility]) Mixed hyperlipidemia ([facility]) Mixed hyperlipidemia Tobacco user Tobacco use disorder Encounter for screening mammogram for malignant neoplasm of breast Chronic obstructive pulmonary disease, unspecified Other specified chronic obstructive pulmonary disease Anxiety and depression (CMS/[facility]) Edema, unspecified Edema Hyperlipidemia, unspecified (CMS/[facility]) Diabetic polyneuropathy associated with type 2 diabetes mellitus (CMS/[facility]) Gout, unspecified cause, unspecified chronicity, unspecified site Non-seasonal allergic rhinitis, unspecified trigger Bilateral lower extremity edema COPD exacerbation (CMS/[facility]) Obstructive chronic bronchitis with exacerbation Pulmonary emphysema, unspecified emphysema type (CMS/HCC) Venous insufficiency Unspecified venous (peripheral) insufficiency Candidiasis of breast COPD exacerbation (CMS/HCC)- Primary Obstructive chronic bronchitis with exacerbation Pulmonary hypertension (CMS/[facility]) Other chronic pulmonary heart diseases Class 3 severe obesity with serious comorbidity and body mass index (BMI) of 50.0 to 59.9 in adult, unspecified obesity type Encounter for subsequent annual wellness visit (AWV) in Medicare patient- Primary Type 2 diabetes mellitus with unspecified complications Pulmonary emphysema, unspecified emphysema type (CMS/[facility]) Moderate persistent asthma without complication (CMS/[facility]) Primary hypertension (CMS/[facility]) Unspecified essential hypertension Type 2 diabetes mellitus with complication, with long-term current use of insulin ([facility]) Class 3 severe obesity with serious comorbidity and body mass index (BMI) of 50.0 to 59.9 in adult, unspecified obesity type Tobacco user Tobacco use disorder Other headache syndrome Malignant neoplasm of cervix uteri, unspecified Other specified disorders of adrenal gland Major depressive disorder, single episode, mild (HCC) (CMS/[facility]) Major depressive disorder, single episode, mild 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 exposed Chronic respiratory failure, unspecified whether with hypoxia or hypercapnia Disorder of adrenal gland, unspecified Non-pressure chronic ulcer of other part of right lower leg limited to breakdown of skin (CMS/[facility]) Non-recurrent acute suppurative otitis media of left ear without spontaneous rupture of tympanic membrane Primary hypertension ([facility])- Primary Unspecified essential hypertension Insomnia Insomnia, unspecified Type 2 diabetes mellitus with complication, with long-term current use of insulin (CMS/[facility]) Non-seasonal allergic rhinitis, unspecified trigger Type 2 diabetes mellitus with unspecified complications Anxiety and depression (CMS/[facility]) Gastro-esophageal reflux disease without esophagitis Edema, unspecified Edema Diabetic polyneuropathy associated with type 2 diabetes mellitus (CMS/[facility]) Chronic obstructive pulmonary disease, unspecified Pulmonary emphysema, unspecified emphysema type (CMS/HCC) Bilateral lower extremity edema Tobacco user Tobacco use disorder Hyperpigmentation of skin Other dyschromia Primary hypertension ([facility])- Primary Unspecified essential hypertension Diabetic polyneuropathy associated with type 2 diabetes mellitus ([facility]) Pulmonary emphysema, unspecified emphysema type ([facility]) Critical limb ischemia of right lower extremity ([facility]) PAD (peripheral artery disease) ([facility]) Unspecified peripheral vascular disease Gastroesophageal reflux disease, unspecified whether esophagitis present Bilateral lower extremity edema Venous ulcer of right leg ([facility]) Type 2 diabetes mellitus with complication, with long-term current use of insulin ([facility]) Tobacco user Tobacco use disorder Encounter for smoking cessation counseling Kidney stone Calculus of kidney Adrenal mass 1 cm to 4 cm in diameter ([facility]) Radiculopathy, lumbar region Thoracic or lumbosacral neuritis or radiculitis, unspecified Non-seasonal allergic rhinitis, unspecified trigger Type 2 diabetes mellitus with unspecified complications Anxiety and depression ([facility])- Primary Morbid (severe) obesity due to excess calories ([facility]) Body mass index (BMI) 50.0-59.9, adult ([facility]) Malignant neoplasm of cervix uteri, unspecified Diabetic polyneuropathy associated with type 2 diabetes mellitus ([facility]) Chronic diastolic heart failure ([facility]) Chronic diastolic heart failure Primary hypertension ([facility] [place]) Unspecified essential hypertension 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 Gastroesophageal reflux disease, unspecified whether esophagitis present Bilateral lower extremity edema Type 2 diabetes mellitus with complication, with long-term current use of insulin ([facility]) Tobacco user Tobacco use disorder Mixed hyperlipidemia ([facility]) Mixed hyperlipidemia Gout, unspecified cause, unspecified chronicity, unspecified site Vitamin deficiency Unspecified vitamin deficiency Gastro-esophageal reflux disease without esophagitis Edema, unspecified Edema Hyperlipidemia, unspecified ([facility]) Encounter for smoking cessation counseling Venous ulcer of right leg ([facility]) Antibiotic-induced yeast infection Primary hypertension ([facility])- Primary Unspecified essential hypertension Diabetic polyneuropathy associated with type 2 diabetes mellitus ([facility]) Chronic diastolic heart failure ([facility]) Chronic diastolic heart failure Bilateral lower extremity edema Morbid (severe) obesity due to excess calories ([facility]) Type 2 diabetes mellitus with complication, with long-term current use of insulin ([facility]) Anxiety and depression ([facility] [place]) Cigarette nicotine dependence without complication Encounter for screening mammogram for malignant neoplasm of breast Insomnia Insomnia, unspecified Non-seasonal allergic rhinitis, unspecified trigger Type 2 diabetes mellitus with unspecified complications Vitamin D deficiency, unspecified Gastro-esophageal reflux disease without esophagitis PAD (peripheral artery disease) ([facility]) Unspecified peripheral vascular disease Gastroesophageal reflux disease, unspecified whether esophagitis present Venous ulcer of right leg ([facility]) Cellulitis of left lower extremity- Primary COPD exacerbation ([facility]) Obstructive chronic bronchitis with exacerbation Primary hypertension ([facility]) Unspecified essential hypertension Pulmonary hypertension ([facility]) Other chronic pulmonary heart diseases Morbid (severe) obesity due to excess calories ([facility]) Type 2 diabetes mellitus with complication, with long-term current use of insulin ([facility]) Anxiety and depression ([facility]) Fever, unspecified fever cause documented in this encounter [facility]* Diagnosis Obstructive sleep apnea- Primary Obstructive sleep apnea (adult) (pediatric) Pulmonary emphysema, unspecified emphysema type (HCC) Primary hypertension Unspecified essential hypertension Type 2 diabetes mellitus with complication, with long-term current use of insulin ([facility]) Anxiety and depression Bilateral lower extremity edema Pulmonary emphysema, unspecified emphysema type (HCC)- Primary Primary hypertension Unspecified essential hypertension Class 3 severe obesity with serious comorbidity and body mass index (BMI) of 50.0 to 59.9 in adult, unspecified obesity type ([facility]) Obstructive sleep apnea Obstructive sleep [...] to 59.9 in adult, unspecified obesity type ([facility] [place]) Encounter for subsequent annual wellness visit (AWV) in Medicare patient- Primary Type 2 diabetes mellitus with unspecified complications (HCC) Pulmonary emphysema, unspecified emphysema type ([facility]) Moderate persistent asthma without complication (HCC) Primary hypertension Unspecified essential hypertension Type 2 diabetes mellitus with complication, with long-term current use of insulin ([facility]) Class 3 severe obesity with serious comorbidity and body mass index (BMI) of 50.0 to 59.9 in adult, unspecified obesity type ([facility] [place]) Tobacco user Tobacco use disorder Other headache syndrome Malignant neoplasm of cervix uteri, unspecified ([facility]) Other specified disorders of adrenal gland ([facility]) Major depressive disorder, single episode, mild Major depressive disorder, single episode, mild 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 exposed ([facility]) Chronic respiratory failure, unspecified whether with hypoxia or hypercapnia ([facility]) Disorder of adrenal gland, unspecified ([facility]) Non-pressure chronic ulcer of other part of right lower leg limited to breakdown of skin ([facility]) Non-recurrent acute suppurative otitis media of left ear without spontaneous rupture of tympanic membrane Primary hypertension- Primary Unspecified essential hypertension Insomnia Insomnia, unspecified Type 2 diabetes mellitus with complication, with long-term current use of insulin ([facility]) Non-seasonal allergic rhinitis, unspecified trigger Type 2 diabetes mellitus with unspecified complications ([facility]) Anxiety and depression Gastro-esophageal reflux disease without esophagitis Edema, unspecified Edema Diabetic polyneuropathy associated with type 2 diabetes mellitus ([facility]) Chronic obstructive pulmonary disease, unspecified (HCC) Pulmonary emphysema, unspecified emphysema type ([facility]) Bilateral lower extremity edema Tobacco user Tobacco use disorder Hyperpigmentation of skin Other dyschromia Primary hypertension- Primary Unspecified essential hypertension Diabetic polyneuropathy associated with type 2 diabetes mellitus ([facility]) Pulmonary emphysema, unspecified emphysema type ([facility]) Critical limb ischemia of right lower extremity ([facility]) PAD (peripheral artery disease) Unspecified peripheral vascular disease Gastroesophageal reflux disease, unspecified whether esophagitis present Bilateral lower extremity edema Venous ulcer of right leg ([facility]) Type 2 diabetes mellitus with complication, with long-term current use of insulin ([facility]) Tobacco user Tobacco use disorder Encounter for smoking cessation counseling Kidney stone Calculus of kidney Adrenal mass 1 cm to 4 cm in diameter ([facility]) Radiculopathy, lumbar region Thoracic or lumbosacral neuritis or radiculitis, unspecified Non-seasonal allergic rhinitis, unspecified trigger Type 2 diabetes mellitus with unspecified complications ([facility]) Anxiety and depression- Primary Morbid (severe) obesity due to excess calories ([facility]) Body mass index (BMI) 50.0-59.9, adult ([facility]) Malignant neoplasm of cervix uteri, unspecified (HCC) Diabetic polyneuropathy associated with type 2 diabetes mellitus (HCC) Chronic diastolic heart failure (HCC) Chronic diastolic heart failure Primary hypertension Unspecified essential hypertension 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 ([facility]) Gastroesophageal reflux disease, unspecified whether esophagitis present Bilateral lower extremity edema Type 2 diabetes mellitus with complication, with long-term current use of insulin ([facility]) Tobacco user Tobacco use disorder [...] obesity due to excess calories ([facility]) Type 2 diabetes mellitus with complication, with long-term current use of insulin (HCC) Anxiety and depression Cigarette nicotine dependence without complication Encounter for screening mammogram for malignant neoplasm of breast Insomnia Insomnia, unspecified Non-seasonal allergic rhinitis, unspecified trigger Type 2 diabetes mellitus with unspecified complications ([facility]) Vitamin D deficiency, unspecified Gastro-esophageal [...] obesity due to excess calories ([facility]) Type 2 diabetes mellitus with complication, with long-term current use of insulin ([facility]) Anxiety and depression Fever, unspecified [...] obesity due to excess calories ([facility]) Type 2 diabetes mellitus with hyperglycemia, with long-term current use of insulin ([facility]) documented in this encounter [facility]* Diagnosis Obstructive sleep apnea- [...] to 59.9 in adult, unspecified obesity type ([facility]) Obstructive sleep apnea Obstructive sleep [...] polyneuropathy associated with type 2 diabetes mellitus ([facility]) Gout, unspecified cause, unspecified chronicity, [...] to 59.9 in adult, unspecified obesity type ([facility] [place]) Encounter for subsequent annual wellness visit (AWV) in Medicare patient- Primary Type 2 diabetes mellitus with unspecified complications ([facility]) Pulmonary emphysema, unspecified emphysema type ([facility]) Moderate persistent asthma without complication (HCC) Primary hypertension Unspecified essential hypertension Type 2 diabetes mellitus with complication, with long-term current use of insulin ([facility]) Class 3 severe obesity with serious comorbidity and body mass index (BMI) of 50.0 to 59.9 in adult, unspecified obesity type ([facility] [place]) Tobacco user Tobacco use disorder Other headache syndrome Malignant neoplasm of cervix uteri, unspecified ([facility]) Other specified disorders of adrenal gland ([facility]) Major depressive disorder, single episode, mild Major depressive disorder, single episode, mild 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 exposed ([facility]) Chronic respiratory failure, unspecified whether with hypoxia or hypercapnia ([facility]) Disorder of adrenal gland, unspecified ([facility]) Non-pressure chronic ulcer of other part of right lower leg limited to breakdown of skin ([facility]) Non-recurrent acute suppurative otitis media of left ear without spontaneous rupture of tympanic membrane Primary hypertension- Primary Unspecified essential hypertension Insomnia Insomnia, unspecified Type 2 diabetes mellitus with complication, with long-term current use of insulin ([facility]) Non-seasonal allergic rhinitis, unspecified trigger Type 2 diabetes mellitus with unspecified complications ([facility]) Anxiety and depression Gastro-esophageal reflux disease without esophagitis Edema, unspecified Edema Diabetic polyneuropathy associated with type 2 diabetes mellitus ([facility]) Chronic obstructive pulmonary disease, unspecified ([facility]) Pulmonary emphysema, unspecified emphysema type ([facility]) Bilateral lower extremity edema Tobacco user Tobacco use disorder Hyperpigmentation of skin Other dyschromia Primary hypertension- Primary Unspecified essential hypertension Diabetic polyneuropathy associated with type 2 diabetes mellitus ([facility]) Pulmonary emphysema, unspecified emphysema type ([facility]) Critical limb ischemia of right lower extremity ([facility]) PAD (peripheral artery disease) Unspecified peripheral vascular disease Gastroesophageal reflux disease, unspecified whether esophagitis present Bilateral lower extremity edema Venous ulcer of right leg ([facility]) Type 2 diabetes mellitus with complication, with long-term current use of insulin ([facility]) Tobacco user Tobacco use disorder Encounter for smoking cessation counseling Kidney stone Calculus of kidney Adrenal mass 1 cm to 4 cm in diameter ([facility]) Radiculopathy, lumbar region Thoracic or lumbosacral neuritis or radiculitis, unspecified Non-seasonal allergic rhinitis, unspecified trigger Type 2 diabetes mellitus with unspecified complications ([facility]) Anxiety and depression- Primary Morbid (severe) obesity due to excess calories ([facility]) Body mass index (BMI) 50.0-59.9, adult ([facility]) Malignant neoplasm of cervix uteri, unspecified (HCC) Diabetic polyneuropathy associated with type 2 diabetes mellitus ([facility]) Chronic diastolic heart failure (HCC) Chronic diastolic heart failure Primary hypertension Unspecified essential hypertension 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 ([facility]) Gastroesophageal reflux disease, unspecified whether esophagitis present Bilateral lower extremity edema Type 2 diabetes mellitus with complication, with long-term current use of insulin ([facility]) Tobacco user Tobacco use disorder Mixed hyperlipidemia Mixed hyperlipidemia Gout, unspecified cause, unspecified chronicity, unspecified site Vitamin deficiency Unspecified vitamin deficiency Gastro-esophageal reflux disease without esophagitis Edema, unspecified Edema Hyperlipidemia, unspecified Encounter for smoking cessation counseling Venous ulcer of right leg ([facility]) Antibiotic-induced yeast infection Primary hypertension- Primary Unspecified essential hypertension Diabetic polyneuropathy associated with type 2 diabetes mellitus (HCC) Chronic diastolic heart failure (HCC) Chronic diastolic heart failure Bilateral lower extremity edema Morbid (severe) obesity due to excess calories ([facility]) Type 2 diabetes mellitus with complication, with long-term current use of insulin ([facility]) Anxiety and depression Cigarette nicotine dependence without complication Encounter for screening mammogram for malignant neoplasm of breast Insomnia Insomnia, unspecified Non-seasonal allergic rhinitis, unspecified trigger Type 2 diabetes mellitus with unspecified complications ([facility]) Vitamin D deficiency, unspecified Gastro-esophageal reflux disease without esophagitis PAD (peripheral artery disease) Unspecified peripheral vascular disease Gastroesophageal reflux disease, unspecified whether esophagitis present Venous ulcer of right leg (HCC) Cellulitis of left lower extremity- Primary COPD exacerbation ([facility]) Obstructive chronic bronchitis with exacerbation Primary hypertension Unspecified essential hypertension Pulmonary hypertension (HCC) Other chronic pulmonary heart diseases Morbid (severe) obesity due to excess calories ([facility]) Type 2 diabetes mellitus with complication, with long-term current use of insulin ([facility]) Anxiety and depression Fever, unspecified [...] Morbid (severe) obesity due to excess calories ([facility] [place]) Encounter for dietary consultation- Primary Type 2 diabetes mellitus with hyperglycemia, with long-term current use of insulin ([facility]) Vitamin D deficiency Primary hypertension Unspecified essential hypertension Insulin long-term use ([facility]) Encounter for long-term (current) use of insulin Hyperlipemia, mixed Mixed hyperlipidemia Microalbuminuria Proteinuria Class 3 severe obesity due to excess calories with serious comorbidity and body mass index (BMI) of 50.0 to 59.9 in adult ([facility] [place]) documented in this encounter [facility] HealthcareEvaluation note* Diagnosis Obstructive sleep apnea- Primary Obstructive sleep apnea (adult) (pediatric) Pulmonary emphysema, unspecified emphysema type (HCC) Primary hypertension Unspecified essential hypertension Type 2 diabetes mellitus with complication, with long-term current use of insulin ([facility]) Anxiety and depression Bilateral lower extremity edema Pulmonary emphysema, unspecified emphysema type (HCC)- Primary Primary hypertension Unspecified essential hypertension Class 3 severe obesity with serious comorbidity and body mass index (BMI) of 50.0 to 59.9 in adult, unspecified obesity type ([facility] [place]) Obstructive sleep apnea Obstructive sleep apnea (adult) (pediatric) Pulmonary hypertension (HCC) Other chronic pulmonary heart diseases Tobacco user Tobacco use disorder Cardiomegaly Primary hypertension- Primary Unspecified essential hypertension Gastroesophageal reflux disease, unspecified whether esophagitis present Type 2 diabetes mellitus with complication, with long-term current use of insulin ([facility]) Mixed hyperlipidemia Mixed hyperlipidemia Tobacco user Tobacco use disorder Encounter for screening mammogram for malignant neoplasm of breast Chronic obstructive pulmonary disease, unspecified (HCC) Other specified chronic obstructive pulmonary disease (HCC) Anxiety and depression Edema, unspecified Edema Hyperlipidemia, unspecified Diabetic polyneuropathy associated with type 2 diabetes mellitus ([facility]) Gout, unspecified cause, unspecified chronicity, [...] to 59.9 in adult, unspecified obesity type ([facility] [place]) Encounter for subsequent annual wellness visit (AWV) in Medicare patient- Primary Type 2 diabetes mellitus with unspecified complications (HCC) Pulmonary emphysema, unspecified emphysema type ([facility]) Moderate persistent asthma without complication (HCC) Primary hypertension Unspecified essential hypertension Type 2 diabetes mellitus with complication, with long-term current use of insulin ([facility]) Class 3 severe obesity with serious comorbidity and body mass index (BMI) of 50.0 to 59.9 in adult, unspecified obesity type ([facility] [place]) Tobacco user Tobacco use disorder Other headache syndrome Malignant neoplasm of cervix uteri, unspecified (HCC) Other specified disorders of adrenal gland (HCC) Major depressive disorder, single episode, mild Major depressive disorder, single episode, mild 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 exposed ([facility]) Chronic respiratory failure, unspecified whether [...] polyneuropathy associated with type 2 diabetes mellitus ([facility]) Pulmonary emphysema, unspecified emphysema type (HCC) Critical limb ischemia of right lower extremity ([facility] [place]) PAD (peripheral artery disease) Unspecified peripheral vascular disease Gastroesophageal reflux disease, unspecified whether esophagitis present Bilateral lower extremity edema Venous ulcer of right leg ([facility]) Type 2 diabetes mellitus with complication, with long-term current use of insulin ([facility]) Tobacco user Tobacco use disorder Encounter for smoking cessation counseling Kidney stone Calculus of kidney Adrenal mass 1 cm to 4 cm in diameter ([facility]) Radiculopathy, lumbar region Thoracic or lumbosacral neuritis or radiculitis, unspecified Non-seasonal allergic rhinitis, unspecified trigger Type 2 diabetes mellitus with unspecified complications ([facility]) Anxiety and depression- Primary Morbid (severe) obesity due to excess calories ([facility] [place]) Body mass index (BMI) 50.0-59.9, adult ([facility] [place]) Malignant neoplasm of cervix uteri, unspecified ([facility]) Diabetic polyneuropathy associated with type 2 diabetes mellitus ([facility]) Chronic diastolic heart failure ([facility]) Chronic diastolic heart failure Primary hypertension Unspecified essential hypertension 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 ([facility]) Gastroesophageal reflux disease, unspecified whether esophagitis present Bilateral lower extremity edema Type 2 diabetes mellitus with complication, with long-term current use of insulin ([facility]) Tobacco user Tobacco use disorder Mixed hyperlipidemia Mixed hyperlipidemia Gout, unspecified cause, unspecified chronicity, unspecified site Vitamin deficiency Unspecified vitamin deficiency Gastro-esophageal reflux disease without esophagitis Edema, unspecified Edema Hyperlipidemia, unspecified Encounter for smoking cessation counseling Venous ulcer of right leg ([facility]) Antibiotic-induced yeast infection Primary hypertension- Primary Unspecified essential hypertension Diabetic polyneuropathy associated with type 2 diabetes mellitus ([facility]) Chronic diastolic heart failure (HCC) Chronic diastolic heart failure Bilateral lower extremity edema Morbid (severe) obesity due to excess calories ([facility] [place]) Type 2 diabetes mellitus with complication, with long-term current use of insulin ([facility]) Anxiety and depression Cigarette nicotine dependence without complication Encounter for screening mammogram for malignant neoplasm of breast Insomnia Insomnia, unspecified Non-seasonal allergic rhinitis, unspecified trigger Type 2 diabetes mellitus with unspecified complications ([facility]) Vitamin D deficiency, unspecified Gastro-esophageal reflux disease without esophagitis PAD (peripheral artery disease) Unspecified peripheral vascular disease Gastroesophageal reflux disease, unspecified whether esophagitis present Venous ulcer of right leg ([facility]) Cellulitis of left lower extremity- Primary COPD exacerbation ([facility]) Obstructive chronic bronchitis with exacerbation Primary hypertension Unspecified essential hypertension Pulmonary hypertension (HCC) Other chronic pulmonary heart diseases Morbid (severe) obesity due to excess calories ([facility]) Type 2 diabetes mellitus with complication, with [...] obesity due to excess calories ([facility]) Tobacco user Tobacco use disorder [...] History sepsis 2010 Hospitalization History SEE ABOVE [employer] Other Hospital course Narrative No data available for this section [facility] Wilfredo progress note No data available for this section [facility] [employer] [employer] [facility] [employer] [facility] reason for referral (narrative) , Referral to Dr. 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 Advance Directives and Living Will Power of Registered Dental Hygienist Summary Purpose Family History No Family History Records FoundNo Family History Records FoundNo Family History Records FoundNo Family History Records Found No data available for this section No Family History Records FoundNo Family History Records FoundNo Family History Records Found Additional Source Comments INFORMATION SOURCE (unrecogn ized section and content) DATE CREATED AUTHOR 10/30/2019 [facility] DATE CREATED AUTHOR AUTHOR'S ORGANIZ ATION 09/15/2020 [facility] DATE CREATED AUTHOR AUTHOR'S ORGANIZ ATION 12/19/2022 [facility] p[facility] DATE CREATED AUTHOR AUTHOR'S ORGANIZ ATION 06/03/2024 [facility] DATE CREATED AUTHOR AUTHOR'S ORGANIZ ATION 01/30/2025 [facility] DATE CREATED AUTHOR AUTHOR'S ORGANIZ ATION 02/06/2025 [facility] DATE CREATED AUTHOR AUTHOR'S ORGANIZ ATION 03/25/2025 [facility] Care Team (unrecognized sect ion and content) [employer] Relationship Specialty Start Date End Date Ty Amin MD PCP - General Family Medicine 01/05/23 [employer] Relationship Specialty Start Date End Date Ty Amin MD PCP - General Family Medicine 01/05/23 [employer] Relationship Specialty Start Date End Date Ty Amin MD [address] [place] [address] PCP - General Family Medicine 09/20/23 Mckayla Blas NP [address] [place] [address] PCP - [facility] 09/07/23 09/05/90 Mckayla Blas NP [address] [place] [address] Nurse Practitioner Family Medicine 09/20/23 [employer] Relationship Specialty Start Date End Date Ty Amin MD [address] [place] [address] PCP - General Family Medicine 09/20/23 Mckayla Blas NP [address] [place] [address] PCP - [facility] 09/07/23 09/05/90 Mckayla Blas NP [address] [place] [address] Nurse Practitioner Family Medicine 09/20/23 [employer] Relationship Specialty Start Date End Date Ty Amin MD [address] [place] [address] PCP - General Family Medicine 09/20/23 Mckayla Blas NP [address] [place] [phone] PCP [facility] 09/07/23 09/05/90 Mckayla Blas NP [address] [place] [address] Nurse Practitioner Family Medicine 09/20/23 [employer] Relationship Specialty Start Date End Date Ty Amin MD [address] [place] [address] PCP - General Family Medicine 09/20/23 Mckayla Blas NP [address] [place] [address] PCP - [facility] 09/07/23 09/05/90 Mckayla Blas NP [address] [place] [address] Nurse Practitioner Family Medicine 09/20/23 [employer] Relationship Specialty Start Date End Date Ty Amin MD [address] [place] [address] PCP - General Family Medicine 09/20/23 Mckayla Blas NP [address] [place] [address] PCP - [facility] 09/07/23 09/05/90 Mckayla Blas NP [address] [place] [address] Nurse Practitioner Family Medicine 09/20/23 [employer] Relationship Specialty Start Date End Date Ty Amin MD [address] [place] [address] PCP - General Family Medicine 09/20/23 Mckayla Blas NP [address] [place] [address] PCP [facility] 09/07/23 09/05/90 Mckayla Blas NP [address] [place] [address] Nurse Practitioner Family Medicine 09/20/23 [employer] Relationship Specialty Start Date End Date Ty Amin MD [address] [place] [address] PCP - General Family Medicine 09/20/23 Mckayla Blas NP [address] [place] [address] PCP - [facility] 09/07/23 09/05/90 Mckayla Blas NP [address] [place] [address] Nurse Practitioner Family Medicine 09/20/23 [employer] Relationship Specialty Start Date End Date Ty Amin MD [address] [place] [address] PCP - General Family Medicine 09/20/23 Mckayla Blas NP [address] [place] [address] PCP [facility] 09/07/23 09/05/90 Mckayla Blas NP [address] [place] [address] Nurse Practitioner Family Medicine 09/20/23 [employer] Relationship Specialty Start Date End Date Ty Amin MD [address] [place] [address] PCP - General Family Medicine 09/20/23 Mckayla Blas NP [address] [place] [address] PCP - [facility] 09/07/23 09/05/90 Mckayla Blas NP [address] [place] [address] Nurse Practitioner Family Medicine 09/20/23 [employer] Relationship Specialty Start Date End Date Ty Amin MD [address] [place] [address] PCP - General Family Medicine 09/20/23 Mckayla Blas NP [address] [place] [address] PCP - [facility] 09/07/23 09/05/90 Mckayla Blas NP [address] [place] [address] Nurse Practitioner Family Medicine 09/20/23 [employer] Relationship Specialty Start Date End Date Ty Amin MD [address] [place] [address] PCP - General Family Medicine 09/20/23 Mckayla Blas NP [address] [place] [address] PCP [facility] 09/07/23 09/05/90 Mckayla Blas NP [address] [place] [address] Nurse Practitioner Family Medicine 09/20/23 [employer] Relationship Specialty Start Date End Date Ty Amin MD [address] [place] [address] PCP - General Family Medicine 09/20/23 Mckayla Blas NP [address] [place] [address] PCP - [facility] 09/07/23 09/05/90 Mckayla Blas NP [address] [place] [address] Nurse Practitioner Family Medicine 09/20/23 [employer] Relationship Specialty Start Date End Date Ty Amin MD [address] [place] [address] PCP - General Family Medicine 09/20/23 Mckayla Blas NP [address] [place] [address] PCP [facility] 09/07/23 09/05/90 Mckayla Blas NP [address] [place] [address] Nurse Practitioner Family Medicine 09/20/23 [employer] Relationship Specialty Start Date End Date Ty Amin MD [address] [place] [address] PCP - General Family Medicine 09/20/23 Mckayla Blas NP [address] [place] [address] PCP - [facility] 09/07/23 09/05/90 Mckayla Blas NP [address] [place] [address] Nurse Practitioner Family Medicine 09/20/23 [employer] Relationship Specialty Start Date End Date Ty Amin MD [address] [place] [address] PCP - General Family Medicine 09/20/23 Mckayla Blas NP [address] [place] [address] PCP - [facility] 09/07/23 09/05/90 Mckayla Blas NP [address] [place] [address] Nurse Practitioner Family Medicine 09/20/23 [employer] Relationship Specialty Start Date End Date Ty Amin MD [address] [place] [address] PCP - General Family Medicine 09/20/23 Mckayla Blas NP [address] [place] [address] PCP [facility] 09/07/23 09/05/90 Mckayla Blas NP [address] [place] [address] Nurse Practitioner Family Medicine 09/20/23 [employer] Relationship Specialty Start Date End Date Ty Amin MD [address] [place] [address] PCP - General Family Medicine 09/20/23 Mckayla Blas NP [address] [place] [address] PCP - [facility] 09/07/23 09/05/90 Mckayla Blas NP [address] [place] [address] Nurse Practitioner Family Medicine 09/20/23 [employer] Relationship Specialty Start Date End Date Ty Amin MD [address] [place] [address] PCP - General Family Medicine 09/20/23 Mckayla Blas NP [address] [place] [address] PCP [facility] 09/07/23 09/05/90 Mckayla Blas NP [address] [place] [address] Nurse Practitioner Family Medicine 09/20/23 [employer] Relationship Specialty Start Date End Date Ty Amin MD [address] [place] [address] PCP - General Family Medicine 09/20/23 Mckayla Blas NP [address] [place] [address] PCP - [facility] 09/07/23 09/05/90 Mckayla Blas NP [address] [place] [address] Nurse Practitioner Family Medicine 09/20/23 [employer] Relationship Specialty Start Date End Date Ty Amin MD [address] [place] [address] PCP - General Family Medicine 09/20/23 Mckayla Blas NP [address] [place] [address] [facility] 09/07/23 09/05/90 Mckayla Blas NP [address] [place] [address] Nurse Practitioner Family Medicine 09/20/23 [employer] Relationship Specialty Start Date End Date Ty Amin MD [address] [place] [address] PCP - General Family Medicine 09/20/23 Mckayla Blas NP [address] [place] [address] Nurse Practitioner Family Medicine 09/20/23 [employer] Relationship Specialty Start Date End Date Ty Amin MD [address] [place] [address] PCP - General Family Medicine 09/20/23 Mckayla Blas NP [address] [place] [address] Nurse Practitioner Family Medicine 09/20/23 [employer] Relationship Specialty Start Date End Date Ty Amin MD [address] [place] [address] PCP - General Family Medicine 09/20/23 Mckayla Blas NP [address] [place] [address] Nurse Practitioner Family Medicine 09/20/23 [employer] Relationship Specialty Start Date End Date Ty Amin MD [address] [place] [address] PCP - General Family Medicine 09/20/23 Mckayla Blas NP [address] [place] [address] Nurse Practitioner Family Medicine 09/20/23 [employer] Relationship Specialty Start Date End Date Ty Amin MD [address] [place] [address] PCP - General Family Medicine 09/20/23 Mckayla Blas NP [address] [place] [address] Nurse Practitioner Family Medicine 09/20/23 REASON FOR [...] BE BASED ON THE PRIMARY CLINICAL RECORDS. [facility] provides no warranty or guarantee of the accuracy or completeness of information in this document.
== END 2025-04-09 11:24 | disposition home or self-care (01) ==
LOC: WC 11:24
PROVIDERS: PCP Nurse Practitioner; Visit Provider Physician Assistant
DX: I87.311 Chronic venous hypertension (idiopathic) with ulcer of right lower extremity (principal); L97.812 Non-pressure chronic ulcer of other part of right lower leg with fat layer exposed
CPT/HCPCS: 29581

== ENCOUNTER 2025-04-13 11:41 | Outpatient (OUT) | payer MEDICARE, SELFPAY ==
--- OUTSIDE RECORDS SUMMARY | 2025-04-13 11:50 | XMS_ITS | CCD ---
Author Organization [facility] Care Team Providers Care Zanjero Name Role Phone James Benavidez Primary Care Provider JAMES BENAVIDEZ Primary Care Unavailable SHENDGE, VITHAL Admitting Unavailable SHENDGE, VITHAL Attending Unavailable AICHHOLZ, MCKAYLA Primary Care Unavailable AICHHOLZ, MCKAYLA Referring Unavailable AICHHOLZ, MCKAYLA J Primary Care Physician Tico, Stephanie Unavailable OLE RAMIREZ Attending Unavailable OLE RAMIREZ Consulting Unavailable AICHHOLZ, SLIP COVER OPERATOR MCKAYLA Primary Care Unavailable OLE RAMIREZ Admitting Unavailable ANTONY SHRESTHA Consulting Unavailable ALONDRA ., UMBERTO Admitting Unavailable ALONDRA ., UMBERTO Attending Unavailable AICHHOLZ, SLIP COVER OPERATOR MCKAYLA Primary Care Unavailable AFSANEH Loera, DR BOLANOS Consulting Unavailable MARYANNE POWER Consulting Unavailable GLENN KERR Consulting Unavailable YOMAIRA KERR Consulting Unavailable HATTIE GOFF Consulting Unavailable ALONDRA ., UMBERTO Consulting Unavailable TICO, STEPHANIE Attending Unavailable TICO, STEPHANIE Consulting Unavailable AICHHOLZ, SLIP COVER OPERATOR MCKAYLA Primary Care Unavailable TICO, STEPHANIE Admitting Unavailable REGLA ., DR DUMONT Admitting Unavailable AICHHOLZ, SLIP COVER OPERATOR MCKAYLA Primary Care Unavailable REGLA ., DR DUMONT Attending Unavailable REGLA ., DR DUMONT Consulting Unavailable COLLIN HUERTAS Consulting Unavailable CECILIA KAUFMAN Admitting Unavailable CECILIA KAUFMAN Attending Unavailable AICHHOLZ, SLIP COVER OPERATOR MCKAYLA Primary Care Unavailable RAFAEL GONGORA Attending Unavailable RAFAEL GONGORA Admitting Unavailable AICHHOLZ, SLIP COVER OPERATOR MCKAYLA Primary Care Unavailable AICHHOLZ, SLIP COVER OPERATOR MCKAYLA Admitting Unavailable AICHHOLZ, SLIP COVER OPERATOR MCKAYLA Primary Care Unavailable AICHHOLZ, SLIP COVER OPERATOR MCKAYLA Attending Unavailable AICHHOLZ, SLIP COVER OPERATOR MCKAYLA Consulting Unavailable LAKSHMIPATHY ., NARENDRANATH Attending Anette vailable LAKSHMIPATHY ., NARENDRANATH Consulting Anette vailable LAKSHMIPATHY ., NARENDRANATH Admitting Anette vailable AICHHOLZ, SLIP COVER OPERATOR MCKAYLA Primary Care Unavailable VALENZUELA ., GIL Consulting Unavailable MORTENSEN ., DR CHAPARRO Aguillon Attending Unavailable MORTENSEN ., DR CHAPARRO Aguillon Admitting Unavailable AICHHOLZ, SLIP COVER OPERATOR MCKAYLA Primary Care Unavailable VALENZUELA ., GIL Consulting Unavailable MORTENSEN ., DR CHAPARRO Aguillon Admitting Unavailable AICHHOLZ, SLIP COVER OPERATOR MCKAYLA Primary Care Unavailable MORTENSEN ., DR CHAPARRO Aguillon Attending Unavailable HALKER ., SUBHASH Consulting Unavailable LAKSHMIPATHY ., NARENDRANATH Admitting Anette vailable LAKSHMIPATHY ., NARENDRANATH Attending Anette vailable AICHHOLZ, SLIP COVER OPERATOR MCKAYLA Primary Care Unavailable MORTENSEN ., DR CHAPARRO Aguillon Attending Unavailable MORTENSEN ., DR CHAPARRO Aguillon Admitting Unavailable VALENZUELA ., GIL Consulting Unavailable AICHHOLZ, SLIP COVER OPERATOR MCKAYLA Primary Care Unavailable VALENZUELA ., GIL Consulting Unavailable MORTENSEN ., DR CHAPARRO Aguillon Attending Unavailable MORTENSEN ., DR CHAPARRO Aguillon Admitting Unavailable AICHHOLZ, SLIP COVER OPERATOR MCKAYLA Primary Care Unavailable HATTIE BRODERICK Attending Unavailable HATTIE BRODERICK Admitting Unavailable AICHHOLZ, SLIP COVER OPERATOR MCKAYLA Primary Care Unavailable AICHHOLZ, SLIP COVER OPERATOR MCKAYLA Admitting Unavailable AICHHOLZ, SLIP COVER OPERATOR MCKAYLA Consulting Unavailable AICHHOLZ, SLIP COVER OPERATOR MCKAYLA Primary Care Unavailable AICHHOLZ, SLIP COVER OPERATOR MCKAYLA Attending Unavailable AICHHOLZ, SLIP COVER OPERATOR MCKAYLA Primary Care Unavailable MISC, DR LESLIE Admitting Unavailable MISC, DR LESLIE Attending Unavailable MISC, DR LESLIE Consulting Unavailable DIAB ., MARIANO Admitting Unavailable DIAB ., MARIANO Attending Unavailable DIAB ., MARIANO Consulting Unavailable AICHHOLZ, SLIP COVER OPERATOR MCKAYLA Primary Care Unavailable RASTEGAR, RICCO Consulting Unavailable AICHHOLZ, SLIP COVER OPERATOR MCKAYLA Admitting Unavailable AICHHOLZ, SLIP COVER OPERATOR MCKAYLA Primary Care Unavailable AICHHOLZ, SLIP COVER OPERATOR MCKAYLA Attending Unavailable AICHHOLZ, SLIP COVER OPERATOR MCKAYLA Consulting Unavailable DR PATRICIA VELOZ Consulting Unavailable TAMLYN ., CECILIA Attending Unavailable TAMLYN ., CECILIA Admitting Unavailable DR PATRICIA VELOZ Consulting Unavailable AICHHOLZ, SLIP COVER OPERATOR MCKAYLA Primary Care Unavailable TAMLYN ., CECILIA Consulting Unavailable FESTUS ., DR CHAPARRO Aguillon Attending Unavailable FESTUS ., DR CHAPARRO Aguillon Consulting Unavailable FESTUS ., DR CHAPARRO Aguillon Admitting Unavailable AICHHOLZ, SLIP COVER OPERATOR MCKAYLA Primary Care Unavailable HATTIE BRODERICK Attending Unavailable HATTIE BRODERICK Consulting Unavailable HATTIE BRODERICK Admitting Unavailable AICHHOLZ, SLIP COVER OPERATOR MCKAYLA Primary Care Unavailable HATTIE BAUTISTA Unavailable AICHHOLZ, SLIP COVER OPERATOR MCKAYLA Admitting Unavailable AICHHOLZ, SLIP COVER OPERATOR MCKAYLA Attending Unavailable AICHHOLZ, SLIP COVER OPERATOR MCKAYLA Consulting Unavailable AICHHOLZ, SLIP COVER OPERATOR MCKAYLA Primary Care Unavailable Brennan PHIPPS, Ty Primary Care Provider Brennan PHIPPS, Ty Primary Care Provider Aichholz CANDY DECORATOR, Mckayla Unavailable Aichholz CANDY DECORATOR, Mckayla Unavailable Elbert ARAUZ Attending Unavailable SARAH VEGA Attending Unavailable AICHHOLZ, MCKAYLA Attending Unavailable RAIN SOUZA F Attending Unavailable AICHHOLZ, MCKAYLA Attending Unavailable AICHHOLZ, MCKAYLA Attending Unavailable AICHHOLZ, MCKAYLA Attending Unavailable LIBBYRAIN MENDEZ F Attending Unavailable AICHHOLZ, MCKAYLA Attending Unavailable LIBBY, AHMAD F Attending Unavailable LIBBY, AHMAD F Referring Unavailable AICHHOLZ, MCKAYLA Attending Unavailable Aichholz CANDY DECORATOR, Mckayla Unavailable Aichholz CANDY DECORATOR-C, Mckayla J Primary Care Provider Price Arora DO Attending Provider Adonay DPM, Flynn Rice Attending Provider [phone] Aichholz CANDY DECORATOR-C, Mckayla Rice Attending Provider Adonay CHAU, Flynn Arzate Attending Unavailab le Bob INK GRINDER-SLIP COVER OPERATOR, Omero Lovell Attending Unav ailable Adonay BAEZM, Flynn Arzate Referring Unavailab lolita Kellogg MD, Corinne Ghosh Attending Unavail able Bob INK GRINDER-SLIP COVER OPERATOR, Omero Lovell Attending Unav ailable Adonay DPM, Flynn Arzate Attending Unavailab le Bob INK GRINDER-SLIP COVER OPERATOR, Omero Lovell Attending Unav ailable Aichholz INK GRINDER-SLIP COVER OPERATOR, Mckayla Citlalli Primary Care AMI Diaz Attending Unavailable DAKOTAH BRIDGES Attending Unavailable Allergies Allergy Classification Reported Allergen(s) Allergy Type Date of Onset Reaction(s) Facility (1 source) No Known Medication Allergies; Translations: [No Known Medication Allergies] Propensity to adverse reactions (disorder) [facility] Repository Medications Current Medications Medication [...] Refill(s) 0 Start Date: 02/06/22 Status: Ordered Start: 12-13-2017 End: 04-05-2025 take 1 tablet by mouth every four hours Hydrocodone-Acetaminophen ([place]) 5-325 mg tablet Discontinued 1 TAB PO Q4H December 13, 2017 April 05, 2025 12:52pm Start: 12-13-2017 take 1 tablet by vandana th every four to six hours as needed for pain HYDROcodone-acet aminophen ([place]) 5-325 MG tablet 1 tablet 3 (three) times a day as needed for severe pain. Active take 1 tablet by vandana th twice daily as needed [place] 5-325 MG 1 tablet as needed Orally TWICE A DAY Active albuterol 0.83 mg/ml inhalation solution (20 sources) beta2-Adrenergic Agonist Start: 04-05-2025 take 2.5 mg by inhalation every four to six hours as needed Start: 02-06-2022 albuterol 0.08 3% Inh Tracey 3 mL Refill(s) 0 Start [...] inhalation solution (20 sources) Anticholinergic, beta2-Adrenergic Agonist Start: 04-05-2025 ipratropium-albu terol (Duo-Neb) 0.5-2.5 mg/3 mL nebulizer solution Daily as needed Active amitriptyline hydrochloride 25 mg oral tablet (20 sources) Tricyclic Antidepressant Start: 02-06-2022 End: 04-26-2025 take 1 tablet by mouth once daily at bedtime aspirin 81 mg chewable tablet (20 sources) Platelet Aggregation Inhibitor, Nonsteroidal Anti-inflammatory Drug Start: 11-01-2023 End: 04-26-2025 take 1 tablet by mouth once daily aspirin 81 MG ch ewable tablet Chew 81 mg in the morning. 0 Active baclofen 10 mg oral tablet (20 sources) gamma-Aminobutyric Acid-ergic Agonist Start: 04-05-2025 take 1 tablet by mouth every eight hours as needed Start: 06-24-2024 take 1 tablet by vandana th in the morning, then take 1 tablet [...] tablet by mouth once daily as needed take 1 tablet by mouth in the mo rning cetirizine (ZyrTEC) 10 MG tablet Take 10 mg by mouth in the morning. 0 Active dapagliflozin 10 mg oral tablet (20 sources) Sodium-Glucose Cotransporter 2 Inhibitor Start: 01-17-2024 End: 04-26-2025 take 1 tablet by mouth once daily Start: 08-14-2023 End: 11-12-2023 take 1 tablet by mouth in the morning dapagliflozin (Farxiga) 10 MG Indications: Type 2 diabetes mellitus with unspecified complications (CMS/HCC) Take 1 tablet (10 mg) by mouth in the morning. 90 tablet 1 08/14/2023 11/12/2023 Active diclofenac sodium 75 mg delayed release oral tablet (20 sources) Nonsteroidal Anti-inflammatory Drug Start: 04-05-2025 take 1 tablet by mouth twice daily Start: 02-06-2022 diclofenac sod ium 75 mg Oral EC Tab Refills(s) 0 [...] End: 025 take 1 capsule by mouth twice daily Start: 07-23-2023 End: 08-22-2023 take 1 capsule [...] capsule (20 sources) Provitamin D2 Compound Start: 04-05-2025 Start: 01-16-2025 End: 04-10-2025 take 1 capsule by mouth every week ergocalciferol (Vitamin D2) 1.25 MG (08331 UT) capsule Indications: Vitamin D deficiency, unspecified Take 1 capsule (1.25 mg) by mouth 1 (one) time per week 12 capsule 1 01/16/2025 04/10/2025 Active Start: 10-27-2024 End: 01-19-2025 take 1 capsule by mouth two times weekly ergocalciferol (Vitamin D2) 1.25 MG (97557 UT) capsule Indications: Vitamin D deficiency, unspecified Take 1 capsule (1.25 mg) by mouth 2 (two) times a week 24 capsule 1 10/27/2024 01/19/2025 Active Start: 04-06-2024 End: 10-27-2024 take 1 capsule by mouth every week ergocalciferol (Vitamin D2) 1.25 MG (40104 UT) capsule Indications: Vitamin D deficiency, unspecified [...] take 1 tablet by mouth once daily Start: 07-07-2024 End: 04-26-2025 take 1 tablet by mouth once daily as needed Start: 04-06-2024 End: 07-05-2024 take 1 tablet by mouth once daily furosemide (Lasix) 40 MG tablet Indications: Bilateral lower extremity edema Take 1 tablet (40 mg) by mouth Daily 90 tablet 1 04/06/2024 Active Start: 12-13-2017 End: 04-05-2025 take 1 tablet by mouth once daily [...] End: 04-26-2025 take 1 tablet by mouth twice daily sodium hypochlorite 2.5 mg/ml topical solution (14 sources) Start: 09-24-2024 HySept 0.25 % external solution APPLY TO GAUZE AND PLACE ON RIGHT LOWER LEG ULCERS, CHANGE DAILY 09/24/2024 Active insulin aspart protamine, human 70 unt/ml / insulin aspart, human 30 unt/ml injectable suspension (2 sources) Insulin Analog insulin aspart protamine-insuli n aspart (NovoLOG Mix 70-30) (70-30) 100 UNIT/ML [...] MEAL Active 3 ml insulin glargine 100 un t/ml pen injector (20 sources) Insulin Analog Start: 04-05-2025 Start: 02-16-2025 insulin glargi ne (Lantus SoloStar) [...] 0 Start Date: 02/06/22 Status: Ordered Start: 12-13-2017 End: 04-05-2025 inject 50 [IU] by subcutaneous injection twice daily Insulin Glargine (Lantus U-100 Insulin) 100 unit/mL Solution Discontinued 50 UNIT SUBCUT Twice daily December 13, 2017 12:00am April 05, 2025 12:53pm Lantus SoloStar 100 UNIT/ML as directed Subcutaneous 58 UNITS ONCE A DAY Active 3 ml insulin lispro 100 unt/ml pen injector (20 sources) Insulin Analog Start: 10-06-2023 End: 04-14-2024 HumaLOG KWIKPEN 100 UNIT/ML injection Inject under the skin 10/06/2023 04/14/2024 Discontinued (Therapy completed) Start: 12-13-2017 inject 1 [IU] by sub cutaneous injection [...] sliding scale Active ammonium lactate 120 mg/ml t opical lotion (20 sources) Start: 04-05-2025 Start: 07-22-2024 ammonium lacta te (Lac-Hydrin) 12 % lotion 07/22/2024 Active Start: 07-22-2024 ammonium lacta te (Lac-Hydrin) 12 % lotion APPLY TO BILATERAL FEET EVERY DAY 07/22/2024 Active lisinopril 20 mg oral tablet (20 sources) Angiotensin Converting Enzyme Inhibitor Start: 02-06-2022 End: 04-26-2025 take 1 tablet by mouth once daily meloxicam (5 sources) Nonsteroidal Anti-inflammatory Drug Start: [...] auto-injector (8 sources) Start: 02-18-2024 Mounjaro 15 MG /0.5ML solution auto-injector Inject 15 mg as directed every 7 (seven) days 02/18/2024 Active naloxone hydrochloride 40 mg/ml nasal spray (20 sources) Opioid Antagonist Start: 04-05-2025 Start: 07-04-2024 naloxone (Narc an) 4 mg/0.1 mL nasal spray Administer 4 [...] take 1 capsule by mouth once daily take 1 capsule by mouth before m ealtime omeprazole (PriLOSEC) [address] capsule Take 20 mg by mouth in the morning. Take before meals. Do not crush or chew. . 0 Active Oxygen (20 sources) oxygen (O2) gas Inhale 2 L/min continuously via nasal canula Active potassium chloride 10 meq extended release oral tablet (20 sources) Start: 04-05-2025 Start: 02-06-2022 End: 04-26-2025 take 1 capsule by mouth once daily in the morning potassium chloride ER (Micro-K) 10 MEQ ER capsule Indications: Bilateral lower extremity edema Take 1 capsule (10 mEq) by mouth Daily Take 1 capsule (10 mEq) by mouth in the morning. 90 capsule 1 01/26/2025 04/26/2025 Active Start: 12-13-2017 End: 04-05-2025 Potassium Chloride (Klor-Con 10) 10 mEq Tablet Extended Release Discontinued 10 MEQ PO Twice daily December 13, 2017 12:00am April 05, 2025 12:56pm take 1 tablet by vandana th every [...] 150 mg oral capsule (20 sources) Start: 04-05-2025 take 1 capsule by mouth once daily Start: 04-05-2025 take 1 capsule by mo ut twice daily Start: 08-13-2024 take 1 capsule by mo ut once daily pregabalin (Lyrica) 150 MG capsule Take 150 mg by mouth Daily 08/13/2024 Active Start: 02-06-2022 Lyrica Oral, R efills(s) 0 Start Date: 02/06/22 Status: Ordered Start: 12-13-2017 End: 04-05-2025 take 1 capsule by mouth in the [...] take 1 tablet by mouth once daily simvastatin 10 mg oral tablet (20 sources) HMG-CoA Reductase Inhibitor Start: 12-19-2024 End: 04-26-2025 take 1 tablet by mouth once daily at bedtime Start: 04-06-2024 End: 11-25-2024 take 1 tablet [...] morning. 90 tablet 1 06/15/2023 09/13/2023 Active Start: 12-13-2017 End: 04-05-2025 take 1 tablet by mouth once daily in the evening Simvastatin 20 mg Tablet Discontinued 20 MG PO Every evening December 13, 2017 12:00am April 05, 2025 1:00pm sulfamethoxazole 800 mg / trimethoprim 160 mg [...] puffs Inhalation TWICE A DAY Active Tirzepatide (1 source) Start: 04-05-2025 Tirzepatide (Mounjaro) 15 MG/0.5ML solution auto-injector (20 [...] (20 sources) Partial Cholinergic Nicotinic Agonist Start: 04-02-20 take 1 tablet by mouth twice daily Start: 12-19-2024 End: 03-09-2025 take 1 tablet by mouth in the [...] the skin Daily 07/14/2024 Discontinued (Therapy completed) naproxen 500 mg oral tablet (1 source) Nonsteroidal Anti-inflammatory Drug Start: 12-13-2017 End: 04-05-2025 take 1 tablet by mouth twice daily at mealtime Naproxen 500 mg tablet Discontinued 500 MG PO Twice daily December 13, 2017 12:00am April 05, 2025 12:53pm administer with food or milk nortriptyline 50 mg oral capsule (17 sources) Tricyclic Antidepressant Start: 12-13-2017 End: 04-05-2025 take 1 capsule by mouth once daily at bedtime Nortriptyline 50 mg Capsule Discontinued 50 MG PO Daily at bedtime December 13, 2017 12:00am April 05, 2025 12:53pm ubrogepant 100 mg oral tablet (12 sources) [...] TOES ACQUIRED LT FOOT] Onset: 3 Chronic Administrative/social admission (20 sources) Patient encounter status; Translations: [Dietary counseling and surveillance] Onset: 4 11-01-2023 Episodic Anxiety disorders (20 sources) Mixed anxiety and depressive disorder; Translations: [Anxiety disorder, unspecified] Onset: 4 07-10-2023 Chronic Asthma (20 sources) Asthma; Translations: [Unspecified asthma, uncomplicated] Onset: 4 02-06-2022 Chronic Calculus of urinary tract (20 sources) Kidney stone; Translations: [Calculus of kidney] Onset: 2 Episodic Cancer of cervix (20 sources) Malignant tumor of cervix; Translations: [Malignant neoplasm of cervix uteri, unspecified] Onset: 4 09-17-2023 Chronic Cancer of cervix (1 source) History of malignant neoplasm of cervix; Translations: [Personal history of malignant neoplasm of cervix uteri] 04-01-2025 Episodic Chronic kidney disease (5 sources) Chronic kidney disease; Translations: [Chronic kidney disease, unspecified] Onset: 2 Resolved: 2 Chronic Chronic obstructive pulmonary disease and bronchiectasis (20 sources) Pulmonary emphysema; Translations: [Chronic obstructive pulmonary disease with (acute) exacerbation] Onset: 3 02-06-2022 Chronic Chronic ulcer of skin (20 sources) Non-pressure chronic ulcer of other part of right lower leg limited to breakdown of skin; Translations: [Non-pressure chronic ulcer of other part of left lower leg limited to breakdown of skin] Onset: 3 08-27-2024 Chronic Congestive heart failure; nonhypertensive (20 sources) Chronic diastolic heart failure; Translations: [Chronic diastolic (congestive) heart failure] Onset: 5 08-27-2024 Chronic Diabetes mellitus with complications (20 sources) Disorder of kidney due to diabetes mellitus; Translations: [Type 2 diabetes mellitus with diabetic chronic kidney disease] Onset: 2 Resolved: 2 Chronic Diabetes mellitus without complication (13 sources) Type 2 diabetes mellitus; Translations: [Type 2 diabetes mellitus without complications] Onset: 2 02-06-2022 Chronic Disorders of lipid metabolism (20 sources) Pure hypercholesterolemia, unspecified; Translations: [Hyperlipidemia, unspecified] Onset: 2 09-17-2023 Chronic Esophageal disorders (20 sources) Gastro-esophageal reflux disease without esophagitis; Translations: [Gastroesophageal reflux disease] Onset: 3 Resolved: 5 09-17-2023 Chronic Essential hypertension (20 sources) Hypertensive disorder; Translations: [Essential (primary) hypertension] Onset: 3 02-06-2022 Chronic Fever of unknown origin (13 sources) Fever; Translations: [Fever, unspecified] Onset: 5 12-09-2024 Episodic Genitourinary symptoms and ill-defined conditions (20 sources) Mixed incontinence; Translations: [Incontinence] Onset: 2 Chronic Genitourinary symptoms and ill-defined conditions (20 sources) Proteinuria; Translations: [Proteinuria, unspecified] Onset: 2 Resolved: 2 Episodic Gout and other crystal arthropathies (20 sources) Gout; Translations: [Gout, unspecified] Onset: 8 09-17-2023 Chronic Headache; including migraine (20 sources) Headache; Translations: [Headache disorder] Onset: 4 02-06-2022 Episodic Hypertension with complications and secondary hypertension (5 sources) Chronic kidney disease due to hypertension; Translations: [Hypertensive chronic kidney disease with stage 1 through stage 4 chronic kidney disease, or unspecified chronic kidney disease] Onset: 2 Resolved: 2 Chronic Immunizations and screening for infectious disease (20 sources) Encounter for screening for other infectious and parasitic diseases; Translations: [Anti-nuclear factor positive] Onset: 1 09-17-2023 Episodic Mood disorders (1 source) Major depressive disorder, single episode, unspecified; Translations: [ANASTACIO DEPRESS D/O SINGLE EPIS UNS] Onset: 2 Chronic Mycoses (20 sources) Tinea unguium; Translations: [Candidiasis of vagina] Onset: 3 Episodic Noninfectious gastroenteritis (1 source) Noninfective gastroenteritis and colitis, unspecified; Translations: [NONINFECTIVE GE AND COLITIS UNS] Onset: 3 Episodic Nutritional deficiencies (20 sources) Vitamin D deficiency; Translations: [Vitamin D deficiency, unspecified] Onset: 5 05-27-2024 Chronic Nutritional deficiencies (20 sources) Vitamin deficiency; Translations: [Vitamin deficiency, unspecified] Onset: 5 08-27-2024 Episodic Osteoarthritis (20 sources) Arthritis; Translations: [Unspecified osteoarthritis, unspecified site] Onset: 2 02-06-2022 Chronic Other aftercare (1 source) Other penitentiary (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 therapy; Translations: [OTH DOG LICENSER CURRENT DRUG THERAPY] Onset: 3 Episodic Other aftercare (1 source) 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; Translations: [[facility] CURRENT USE OF ASPIRIN] Onset: 3 Episodic Other aftercare (6 sources) Long-term current use of insulin; Translations: [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) use of insulin] 05-27-2024 Episodic Other aftercare (20 sources) Long-term current use of inhaled steroid; Translations: [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) use of inhaled steroids] Onset: 5 08-27-2024 Episodic Other and ill-defined heart disease (20 sources) Cardiomegaly; Translations: [Cardiomegaly] Onset: 8 09-17-2023 Chronic Other and ill-defined heart disease (1 source) Cardiomegaly; Translations: [Cardiomegaly] Onset: 5 Chronic Other and unspecified benign neoplasm (1 source) Benign lipomatous tumor; Translations: [Benign lipomatous neoplasm of other sites] Onset: 4 Episodic Other and unspecified benign neoplasm (20 sources) Myelolipoma of adrenal gland; Translations: [Benign lipomatous neoplasm of other sites] Onset: 5 06-11-2024 Episodic Other bone disease and musculoskeletal [...] NOT ELSEWHERE CLASSIFIED] Onset: 3 Chronic Other diseases of veins and lymphatics (5 sources) Chronic peripheral venous hypertension with lower extremity complication; Translations: [Chronic venous hypertension (idiopathic) with ulcer of bilateral lower extremity] Onset: 5 08-27-2024 Chronic Other diseases of veins and lymphatics (19 sources) Chronic peripheral venous hypertension; Translations: [Chronic venous hypertension (idiopathic) with ulcer of bilateral lower extremity] Onset: 5 08-27-2024 Chronic Other diseases of veins and lymphatics (12 sources) Stasis dermatitis and venous ulcer of right lower extremity due to chronic peripheral venous hypertension; Translations: [Chronic venous hypertension (idiopathic) with ulcer and inflammation of right lower extremity] Onset: 5 12-09-2024 Chronic Other diseases of veins and lymphatics (20 sources) Vascular insufficiency; Translations: [Venous insufficiency (chronic) (peripheral)] Onset: 4 09-17-2023 Episodic Other endocrine disorders (2 sources) Disorder of adrenal gland; Translations: [Other specified disorders of adrenal gland] Onset: 2 Chronic Other endocrine disorders (20 sources) Adrenal mass; Translations: [Disorder of adrenal gland, unspecified] Onset: 4 09-17-2023 Chronic Other endocrine disorders (2 sources) Disorder of adrenal gland, unspecified Onset: 2 Resolved: 2 Chronic Other endocrine disorders (5 sources) Other specified disorders of adrenal gland; Translations: [OTHER SPEC DISORDERS ADRENAL GLAND] Onset: 3 Chronic Other gastrointestinal disorders (3 sources) Adrenal mass 02-06-2022 Episodic Other lower respiratory disease (1 source) Hypoxemia; Translations: [HYPOXEMIA] Onset: 3 Episodic Other nervous system disorders (5 sources) Chronic pain syndrome; Translations: [CHRONIC PAIN SYNDROME] Onset: 2 Chronic Other nervous system disorders (1 source) Other chronic pain; Translations: [OTHER CHRONIC PAIN] Onset: 2 Chronic Other nervous system disorders (20 sources) Reduced mobility; Translations: [Other abnormalities of gait and mobility] Onset: 4 09-17-2023 Episodic Other non-traumatic joint disorders (4 sources) Pain in right hip; Translations: [PAIN IN RIGHT HIP] Onset: 2 Episodic Other non-traumatic joint disorders (20 sources) Pain in right knee; Translations: [Pain in joint, lower leg] Onset: 4 09-17-2023 Episodic Other nutritional; endocrine; and metabolic disorders (2 sources) Localized adiposity; Translations: [Localized adiposity] Chronic Other nutritional; endocrine; and metabolic disorders (20 sources) Body mass index 40+ - severely obese; Translations: [Body mass index (BMI) 50.0-59.9, adult] Onset: 5 08-27-2024 Chronic Other nutritional; endocrine; and metabolic [...] (severe) obesity due to excess calories] Onset: 5 08-27-2024 Chronic Other screening for suspected conditions (not mental disorders or infectious disease) (1 source) Encounter for screening mammogram for malignant neoplasm of breast; Translations: [ENC SCR MAMMO MALIG NEOPLASM BREAST] Onset: 3 Episodic Other skin disorders (20 sources) Hyperpigmentation of skin; Translations: [Disorder of pigmentation, unspecified] Onset: 4 04-14-2024 Episodic Other skin disorders (1 source) Bilateral localized swelling of lower legs; Translations: [Localized swelling, mass and lump, lower limb, bilateral] 04-01-2025 Episodic Other upper respiratory disease (20 sources) Allergic rhinitis; Translations: [Other allergic rhinitis] Onset: 4 11-01-2023 Chronic Pancreatic disorders (not diabetes) (20 sources) Acute pancreatitis without necrosis or infection, unspecified; Translations: [Pancreatitis] Onset: 3 09-17-2023 Episodic Peripheral and visceral atherosclerosis (20 sources) Peripheral vascular disease, unspecified; Translations: [Peripheral vascular disease, unspecified] Onset: 3 09-17-2023 Chronic Pulmonary heart disease (20 sources) Pulmonary hypertension; Translations: [Pulmonary hypertension, unspecified] Onset: 4 09-17-2023 Chronic Residual codes; unclassified (3 sources) Obstructive sleep apnea (adult) (pediatric); Translations: [OBSTRUCTIVE SLEEP APNEA] Onset: 3 Chronic Residual codes; unclassified (20 sources) Obstructive [...] UNS] Onset: 3 Episodic Residual codes; unclassified (20 sources) Insomnia; Translations: [Insomnia, unspecified] Onset: 4 09-17-2023 Episodic Residual codes; unclassified (20 sources) Tobacco user; Translations: [Tobacco use] Onset: 4 Resolved: 5 09-17-2023 Episodic Skin and subcutaneous tissue infections (18 sources) Cellulitis of right lower limb; Translations: [Cutaneous abscess of left axilla] Onset: 3 Episodic Spondylosis; intervertebral disc disorders; other back problems (20 sources) Lumbar radiculopathy; Translations: [Radiculopathy, lumbar region] Onset: 4 09-17-2023 Episodic Substance-related disorders (20 sources) Nicotine dependence; Translations: [Nicotine dependence, unspecified, uncomplicated] Onset: 2 Chronic Comment on above: Added secondary to d ocumentation in Social History. 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; Translations: [[facility] INJECT NONINSULN ANTIDIAB] Onset: 3 Unclassified (3 sources) CONTACT W/AND (SUSP) EXPOS COVID-19; Translations: [CONTACT W/AND (SUSP) EXPOS COVID-19] Onset: 2 Unclassified (3 sources) LOW BACK PAIN, UNSPECIFIED; Translations: [LOW BACK PAIN, UNSPECIFIED] Onset: 2 Unclassified (1 source) Obesity, class 3; Translations: [Obesity, class 3] Onset: 4 Viral infection (1 source) COVID-19; Translations: [COVID-19] [...] UNS OVREXRT/STRN MVMT/POS INT] Onset: 12-27-2021 Episodic Mood disorders (20 sources) Mood disorders; Translations: [DEPRESSION UNSPECIFIED] Onset: 12-05-2022 01-17-2024 Other aftercare (3 sources) 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) use of insulin; Translations: [DOG LICENSER CURRENT USE OF INSULIN] Onset: 12-05-2022 Episodic Other connective tissue disease (4 sources) [...] IN LEFT KNEE] Onset: 07-26-2022 Episodic Other nutritional; endocrine; and metabolic disorders [...] 09-01-2022 Episodic Otitis media and related conditions (20 sources) Acute suppurative otitis media without spontaneous rupture of ear drum; Translations: [Acute suppurative otitis media without spontaneous rupture of ear drum, left ear] Onset: 01-17-2024 Resolved: 07-14-2024 01-17-2024 Episodic Pneumonia (except that caused by tuberculosis [...] 07-10-2023 Episodic Residual codes; unclassified (20 sources) Edema of lower extremity; Translations: [Localized edema] Onset: 09-17-2023 Resolved: 09-17-2023 09-17-2023 Episodic Sprains and strains (1 [...] Test Name Value Interpretation Reference Range Facility Basophils Auto (Bld) [#/Vol] Ordered By: Flynn Urias on 03-26-2025 Basophils (Bld) [#/Vol] 0.1 10 3/uL 0.0-0.1 Basophils/100 WBC Auto (Bld) Ordered By: Flynn Urias on 03-26-2025 Basophils/100 WBC (Bld) 0.6 % 0.2-2.0 [facility] Eosinophils/100 WBC Auto (Bl d)Ordered By: Flynn Urias on 03-26-2025 Eosinophils/100 WBC (Bld) 2.7 % 0.9-7.0 Erythrocyte distribution wid th Auto (RBC) [Ratio]Ordered By: Flynn Urias on 03-26-2025 Erythrocyte distribution width (RBC) [Ratio] 16.4 % High 11.0-15.0 Glomerular filtration rate ( GFR) estimation in non- AmericanOrdered By: Flynn Urias on 03-26-2025 GFR/1.73 sq M.predicted among non-blacks MDRD (S/P/Bld) [Vol rate/Area] mL/min/{1.73_m2} >=60 mL/min/1.73m 2 Hematocrit Auto (Bld) [Volum e fraction]Ordered By: Flynn Urias on 03-26-2025 Hematocrit (Bld) [Volume fraction] 52.5 % High 36.0-48.0 Hemoglobin [Mass/volume] in BloodOrdered By: Flynn Urias on 03-26-2025 Hemoglobin (Bld) [Mass/Vol] 16.1 g/dL High 12.0-16.0 Laboratory - Chemistry and C hemistry - challengeOrdered By: Flynn Urias on 03-26-2025 Albumin [Mass/Vol] 2.8 g/dL Low 3.4-5.0 [facility] Calcium [Mass/Vol] 8.6 mg/dL 8.5-10.1 [facility] Chloride [Moles/Vol] 105 mmol/L 98-[address] [facility] CO2 [Moles/Vol] 31.5 mmol/L 21.0-32.0 [facility] Creatinine [Mass/Vol] 0.69 mg/dL 0.55-1.02 [facility] GFR/1.73 sq M.predicted MDRD (S/P/Bld) [Vol rate/Area] mL/min/{1.73_m2} >=60 mL/min/1.73m 2 Glucose [Mass/Vol] 147 mg/dL High 74-106 [facility] Potassium [Moles/Vol] 4.2 mmol/L 3.5-5.1 [facility] Sodium [Moles/Vol] 141 mmol/L 136-145 [facility] Urea nitrogen [Mass/Vol] 15.0 mg/dL 7.0-18.0 Urea nitrogen/Creatinine [Mass ratio] 21.7 mg/mg Laboratory - Hematology and Cell countsOrdered By: Flynn Urias on 03-26-2025 ESR (Bld) [Velocity] 48 mm/h High <=[address] [facility] Immature granulocytes/100 WBC (Bld) 0.3 % 0.0-0.5 Leukocytes [#/volume] correc bakari for nucleated erythrocytes in Blood by Automated counOrdered By: Flynn Urias on 03-26-2025 WBC corrected for nucl RBC Auto (Bld) [#/Vol] 10.0 10 3/uL 4.0-11.0 Lymphocytes Auto (Bld) [#/Vo l]Ordered By: Flynn Urias on 03-26-2025 Lymphocytes (Bld) [#/Vol] 2.7 10 3/uL 1.2-3.8 Lymphocytes/100 WBC Auto (Bl d)Ordered By: Flynn Urias on 03-26-2025 Lymphocytes/100 WBC (Bld) 27.2 % 20.5-60.0 MCH Auto (RBC) [Entitic mass ]Ordered By: Flynn Urias on 03-26-2025 MCH (RBC) [Entitic mass] 27.2 pg 26.7-34.0 [facility] Auto (RBC) [Mass/Vol]Or dered By: Flynn Urias on 03-26-2025 MCHC (RBC) [Mass/Vol] 30.7 g/dL 29.9-35.2 [facility] MCV Auto (RBC) [Entitic vol] Ordered By: Flynn Urias on 03-26-2025 MCV (RBC) [Entitic vol] 88.7 fL 81.0-99.0 [facility] Monocytes Auto (Bld) [#/Vol] Ordered By: Flynn Urias on 03-26-2025 Monocytes (Bld) [#/Vol] 0.5 10 3/uL 0.3-0.8 Monocytes/100 WBC Auto (Bld) Ordered By: Flynn Urias on 03-26-2025 Monocytes/100 WBC (Bld) 5.2 % 1.7-12.0 [facility] Neutrophils Auto (Bld) [#/Vo l]Ordered By: Flynn Urias on 03-26-2025 Neutrophils (Bld) [#/Vol] 6.4 10 3/uL 1.4-6.5 Neutrophils/100 WBC Auto (Bl d)Ordered By: Flynn Urias on 03-26-2025 Neutrophils/100 WBC (Bld) 64.0 % 43.0-75.0 No Panel InformationOrdered By: Flynn Urias on 03-26-2025 C-Reactive Protein, Quantitative 3.94 mg/dL High <=0.50 Eosinophils # (Auto) 0.3 10 3/uL 0.0-0.7 [facility] Immature Granulocyte # (Auto) 0.03 10 3/uL 0.00-0.03 Phosphorus Level 3.5 mg/dL 2.6-4.7 [facility] Platelet mean volume Auto (B ld) [Entitic vol]Ordered By: Flynn Urias on 03-26-2025 Platelet mean volume (Bld) [Entitic vol] 12.8 fL 9.5-13.5 Platelets Auto (Bld) [#/Vol] Ordered By: Flynn Urias on 03-26-2025 Platelets (Bld) [#/Vol] 146 10 3/uL Low 150-450 RBC Auto (Bld) [#/Vol]Ordere d By: Flynn Urias on 03-26-2025 RBC (Bld) [#/Vol] 5.92 10 6/uL High 4.20-5.40 [facility] Serum or plasma anion gap de terminationOrdered By: Flynn Urias on 03-26-2025 Anion gap [Moles/Vol] 8.7 mmol/L [facility] Basophils Auto (Bld) [#/Vol] Ordered By: Price Arora on 03-25-2025 Basophils (Bld) [#/Vol] 0.1 10 3/uL 0.0-0.1 Basophils/100 WBC Auto (Bld) Ordered By: Price Arora on 03-25-2025 Basophils/100 WBC (Bld) 0.4 % 0.2-2.0 [facility] Eosinophils/100 WBC Auto (Bl d)Ordered By: Price Arora on 03-25-2025 Eosinophils/100 WBC (Bld) 2.4 % 0.9-7.0 Erythrocyte distribution wid th Auto (RBC) [Ratio]Ordered By: Price Arora on 03-25-2025 Erythrocyte distribution width (RBC) [Ratio] 16.4 % High 11.0-15.0 Glomerular filtration rate ( GFR) estimation in non- AmericanOrdered By: Price Arora on 03-25-2025 GFR/1.73 sq M.predicted among non-blacks MDRD (S/P/Bld) [Vol rate/Area] mL/min/{1.73_m2} >=60 mL/min/1.73m 2 Hematocrit Auto (Bld) [Volum e fraction]Ordered By: Price Arora on 03-25-2025 Hematocrit (Bld) [Volume fraction] 56.6 % High 36.0-48.0 Hemoglobin [Mass/volume] in BloodOrdered By: Price Arora on 03-25-2025 Hemoglobin (Bld) [Mass/Vol] 17.4 g/dL High 12.0-16.0 Laboratory - Chemistry and C hemistry - challengeOrdered By: Price Arora on 03-25-2025 Bilirubin Ql (U) Negative NEGATIVE [facility] Glucose (U) [Mass/Vol] Negative NEGATIVE [facility] Ketones Ql (U) Negative NEGATIVE pH (U) 8.0 [pH] 5.0-9.0 Specific gravity (U) [Rel density] 1.020 1.005-1.025 Urobilinogen Qn (U) 1.0 {Little'U}/dL 0.2-1.0 Calcium [Mass/Vol] 9.2 mg/dL 8.5-10.1 [facility] Chloride [Moles/Vol] 106 mmol/L 98-[address] [facility] CO2 [Moles/Vol] 36.9 mmol/L High 21.0-32.0 [facility] Creatinine [Mass/Vol] 0.86 mg/dL 0.55-1.02 [facility] GFR/1.73 sq M.predicted MDRD (S/P/Bld) [Vol rate/Area] mL/min/{1.73_m2} >=60 mL/min/1.73m 2 Glucose [Mass/Vol] 164 mg/dL High 74-106 [facility] Potassium [Moles/Vol] 4.0 mmol/L 3.5-5.1 [facility] Sodium [Moles/Vol] 144 mmol/L 136-145 [facility] Urea nitrogen [Mass/Vol] 14.0 mg/dL 7.0-18.0 Urea nitrogen/Creatinine [Mass ratio] 16.3 mg/mg Laboratory - Hematology and Cell countsOrdered By: Price Arora on 03-25-2025 Immature granulocytes/100 WBC (Bld) 0.3 % 0.0-0.5 Laboratory - Specimen inform ationOrdered By: Price Arora on 03-25-2025 Appearance (U) CLEAR CLEAR Color (U) LT. YELLOW YELLOW Laboratory - UrinalysisOrder ed By: Price Arora on 03-25-2025 Hyaline casts LM Ql (Urine sed) RARE Leukocyte esterase Test strip Ql (U) Negative NEGATIVE Mucus Ql (Urine sed) TRACE Abnormal NONE SEEN [facility] Nitrite Ql (U) Negative NEGATIVE Protein Ql (U) 100 mg/dL Abnormal NEG/TRACE Leukocytes [#/volume] correc bakari for nucleated erythrocytes in Blood by Automated counOrdered By: Price Arora on 03-25-2025 WBC corrected for nucl RBC Auto (Bld) [#/Vol] 11.8 10 3/uL High 4.0-11.0 Lymphocytes Auto (Bld) [#/Vo l]Ordered By: Price Arora on 03-25-2025 Lymphocytes (Bld) [#/Vol] 3.1 10 3/uL 1.2-3.8 Lymphocytes/100 WBC Auto (Bl d)Ordered By: Price Arora on 03-25-2025 Lymphocytes/100 WBC (Bld) 26.4 % 20.5-60.0 MCH Auto (RBC) [Entitic mass ]Ordered By: Price Arora on 03-25-2025 MCH (RBC) [Entitic mass] 27.5 pg 26.7-34.0 [facility] Auto (RBC) [Mass/Vol]Or dered By: Price Arora on 03-25-2025 MCHC (RBC) [Mass/Vol] 30.7 g/dL 29.9-35.2 [facility] MCV Auto (RBC) [Entitic vol] Ordered By: Price Arora on 03-25-2025 MCV (RBC) [Entitic vol] 89.4 fL 81.0-99.0 [facility] Monocytes Auto (Bld) [#/Vol] Ordered By: Price Arora on 03-25-2025 Monocytes (Bld) [#/Vol] 0.6 10 3/uL 0.3-0.8 Monocytes/100 WBC Auto (Bld) Ordered By: Price Arora on 03-25-2025 Monocytes/100 WBC (Bld) 5.2 % 1.7-12.0 [facility] Neutrophils Auto (Bld) [#/Vo l]Ordered By: Price Arora on 03-25-2025 Neutrophils (Bld) [#/Vol] 7.7 10 3/uL High 1.4-6.5 Neutrophils/100 WBC Auto (Bl d)Ordered By: Price Arora on 03-25-2025 Neutrophils/100 WBC (Bld) 65.3 % 43.0-75.0 No Panel InformationOrdered By: Price Arora on 03-25-2025 Urine Bacteria TRACE #/HPF Abnormal NONE SEEN Urine Culture Reflexed NO [facility] Urine Occult Blood Negative NEGATIVE [facility] Urine Other Casts SEEN #/LPF Abnormal NONE SEEN [facility] Urine Other Crystals None Seen #/HPF None Seen Urine RBC 0-2 #/HPF 0-2 Urine Squamous Epithelial Cells FEW #/LPF Abnormal NONE/RARE Urine WBC 0-2 #/HPF Abnormal NONE SEEN Eosinophils # (Auto) 0.3 10 3/uL 0.0-0.7 [facility] Immature Granulocyte # (Auto) 0.04 10 3/uL High 0.00-0.03 Platelet mean volume Auto (B ld) [Entitic vol]Ordered By: Price Arora on 03-25-2025 Platelet mean volume (Bld) [Entitic vol] 12.4 fL 9.5-13.5 Platelets Auto (Bld) [#/Vol] Ordered By: Price Arora on 03-25-2025 Platelets (Bld) [#/Vol] 160 10 3/uL 150-450 RBC Auto (Bld) [#/Vol]Ordere d By: Price Arora on 03-25-2025 RBC (Bld) [#/Vol] 6.33 10 6/uL High 4.20-5.40 [facility] Serum or plasma anion gap de terminationOrdered By: Price Arora on 03-25-2025 Anion gap [Moles/Vol] 5.1 mmol/L [facility] Vascular Office/Clinic Noteo n 03-23-2025 Vascular Office/Clinic [...] She has had testing done at the [facility] last year which she brought [...] per day. Packs Electronically signed by Bob Omero REBOLLEDO 03/23/25 12:01 EDT Normal [facility] Podiatry Office/Clinic Noteo n 03-11-2025 Podiatry Office/Clinic Note The content of this note was generated by an [employer] (AI) language dictation. The patient or guardian [...] of this note was generated by an [employer] (AI) language dictation. The patient or guardian [...] of this note was generated by an [employer] intelligence (AI) language dictation. The patient or [...] wraps (gauze, tila bandage, Coban II, tuba literacy education professor), Dakins solution, a 40-day course of antibiotics, [...] other blood thinners. The patient resides in [place]. Review of Systems Constitutional: Negative for signs [...] extremities Positi (more content not included)... Normal [facility] Comment on above: Order Comment: Destiny ocampo Attachment [id number] Can be viewed in source system XR [...] Electronically Signed in Other Vendor System) Normal [facility] Results Follow-Upon 02-05-20 Results Follow-Up [id number] GilbertoMitzi Gilberto 1970 F Date Provider Department Center 02/04/2025 Mikaela-AMI ORO CARDIOLOGY None Family History Problem Relation Age of Onset Heart attack Paternal Grandmother Family Status - Relation Status Age at Mother Father Paternal Grandmother Normal [facility] Orders Onlyon 01-30-2025 Orders Only [id number] Mitzi Macias 1970 F Date Provider Department Center 01/30/2025 [id number], HISTORICAL [facility] Family History Problem Relation Age of Onset Heart attack Paternal Grandmother Family Status - Relation Status Age at Mother Father Paternal Grandmother Normal [facility] CA ECHO DOPPLER COMPLETEon 0 01-29-[address] [address] Cardiology Report Signed Patient: MITZI MACIAS MR#: [id number] : 1970 Acct:[id number] Age/Sex: 54 / F ADM Date: 01/29/25 Loc: CARD Attending Dr: AMI ORO APRN Ordering Physician: AMI ORO APRN Date of Service: 01/29/25 Procedure(s): CA echo doppler complete Accession Number(s): [id number] cc: Mckayla Blas CANDY DECORATOR; AMI ORO APRN Patient Name: MITZI MACIAS MR#: [id number] : 1970 Exam Date: 01/29/2025 Ordering Doctor: [...] HERRERA Signed By: 01/29/251839 DD/ 39 TD/TT: Doctor Of Dental Medicine: [facility] Radiology, Radiologist, - 01/29/2025 [place] [address] Cardiology Report Signed Patient: MITZI MACIAS MR#: [id number] : 1970 Acct:[id number] Age/Sex: 54 / F ADM Date: 01/29/25 Loc: CARD Attending Dr: AMI ORO APRN Ordering Physician: AMI ORO APRN Date of Service: 01/29/25 Procedure(s): CA echo doppler complete Accession Number(s): [id number] cc: Mckayla Blas CANDY DECORATOR; AMI ORO APRN Patient Name: MITZI MACIAS MR#: [id number] : 1970 Exam Date: 01/29/2025 Ordering Doctor: [...] HERRERA Signed By: 01/29/251839 DD/ 39 TD/TT: Doctor Of Dental Medicine: [facility] Radiology Study observation (narrative) [facility] CA ECHO DOPPLER COMPLETEOrde red By: Radiologist Radiology on 01-29-2025 [facility] Work Phone: Glucose (Bld) [Mass/Vol]on 0 01-29-2025 Glucose Blood, POC 121 mg/dL [facility] Laboratory - Hematology and Cell countson 01-29-2025 HbA1c (Bld) [Mass fraction] 8.4 % [facility] No Panel Informationon 01-29 Interpretation and review of laboratory results Abnormal [facility] Office Visiton 01-06-2025 Follow-up visit [id number] Mitzi Macias 1970 F Date Provider Department Center 01/06/2025 [facility] SARABIA [facility] Family History Problem Relation Age of Onset Heart attack Paternal Grandmother Family Status - Relation Status Age at Mother Father Paternal Grandmother Level of Service:49192 DC OFFICE/OUTPATIENT ESTABLISHED MOD MDM 30 MIN Reason for Visit and Comments: Congestive Heart Failure [127] Hypertension [462581] Hyperlipidemia [182] Normal [facility] 36on 10-21-2024 36 Regarding lab results from 10/08/2024: MD Mickie Merritt MA Lipids, ALT AST, and BMP are normal. HbA1c was not performed. Continue current management. LM on patient's VM. Normal [facility] Glucose (Bld) [Mass/Vol]Orde red By: Mica Sauceda on 10-08-2024 Glucose Blood, POC 97 mg/dL [facility] Laboratory - Hematology and Cell countson 10-08-2024 HbA1c (Bld) [Mass fraction] 7.4 % [facility] No Panel InformationOrdered By: Mica Sauceda on 10-08-2024 [facility] UA (CLEAN/CATCH) MICROSC OPIC IF INDICATEon 10-08-2024 BILIRUBIN URINE Negative NEGATIVE [facility] BLOOD URINE Negative NEGATIVE [facility] Clarity (U) CLEAR CLEAR [facility] Color (U) YELLOW YELLOW [facility] GLUCOSE URINE UA Negative NEGATIVE mg/dL [facility] Interpretation and review of laboratory results Abnormal [facility] Ketones Ql (U) Negative NEGATIVE mg/dL [facility] Leukocyte esterase Test strip Ql (U) Negative NEGATIVE [facility] NITRITE URINE Negative NEGATIVE [facility] pH (U) 5.5 [pH] 5.0 - 9.0 [facility] Protein (U) [Mass/Vol] 30 mg/dL Abnormal NEG/TRACE NO [facility] SPECIFIC GRAVITY URINE >=1.030 Abnormal 1.005 - 1.025 [facility] URINE MICROSCOPIC INDICATED YES [facility] UROBILINOGEN URINE 1.0 EU/dL 0.2 - 1.0 EU/dL [facility] ALL CBC WITH AUTO DIFFon BASOPHILS ABSOLUTE AUTO 0.1 N [facility] Basophils/100 WBC (Bld) 0.5 % 0.2 - 2.0 % [facility] Eosinophils/100 WBC (Bld) 1.9 % 0.9 - 7.0 % [facility] Erythrocyte distribution width (RBC) [Ratio] 14.6 % 11.0 - 15.0 % [facility] Hematocrit (Bld) [Volume fraction] 50.9 % High 36.0 - 48.0 % [facility] Hemoglobin (Bld) [Mass/Vol] 16.1 g/dL High 12.0 - 16.0 g/dL [facility] IMMATURE GRANULOCYTES ABS AUTO 0.04 High [facility] Immature granulocytes/100 WBC (Bld) 0.3 % 0.0 - 0.5 % [facility] Interpretation and review of laboratory results Abnormal [facility] LYMPHOCYTES ABSOLUTE AUTO 3.2 [facility] Lymphocytes/100 WBC (Bld) 25.1 % 20.5 - 60.0 % [facility] MCH (RBC) [Entitic mass] 29.2 pg 26. 7 - 34.0 pg [facility] MCHC (RBC) [Mass/Vol] 31.6 g/dL 29.9 - 35.2 g/dL [facility] MCV (RBC) [Entitic vol] 92.2 fL 81.0 - 99.0 fL [facility] MONOCYTES ABSOLUTE AUTO 0.7 N [facility] Monocytes/100 WBC (Bld) 5.2 % 1.7 - 12.0 % [facility] NEUTROPHILS ABSOLUTE AUTO 8.6 High [facility] Neutrophils/100 WBC (Bld) 67 % 43.0 - 75.0 % [facility] Platelet mean volume (Bld) [Entitic vol] 12.8 fL 9.5 - 13.5 fL [facility] EO # 0.2 [facility] PLT 122 Low [facility] TB RBC 5.52 High [facility] WBC 12.8 High [facility] Office Visiton 08-08-2024 Follow-up visit [id number] Mitzi Macias 1970 F Date Provider Department Center 08/08/2024 [id number] BRIDGES Family History Problem Relation Age of Onset Heart attack Paternal Grandmother Family Status - Relation Status Age at Paternal Grandmother Level of Service:52683 DC OFFICE/OUTPATIENT ESTABLISHED MOD MDM 30 MIN Reason for Visit and Comments: Congestive Heart Failure [127] - Denies chest pain, SOB, and palpitations. Hypertension [886474] Hyperlipidemia [182] LVH [Other] Edema [[id number]] - Denies worsening edema. She sees wound care for RLE ulcer. She was seeing the vein specialists here in town but they are moving to [place] in a few weeks. Normal [facility] Glucose (Bld) [Mass/Vol]Orde red By: Mica Sauceda on 05-27-2024 Glucose Blood, POC 158 mg/dL [facility] Laboratory - Hematology and Cell countson 05-27-2024 HbA1c (Bld) [Mass fraction] 9.2 % [facility] No Panel InformationOrdered By: Mica Sauceda on 05-27-2024 [facility] CREATININEon 05-12-2024 Creatinine [Mass/Vol] 0.92 mg/dL 0.55 - 1.02 mg/dL [facility] GFR/1.73 sq M.predicted CKD-EPI (S/P/Bld) [Vol rate/Area] >60 >=60 mL/min/1.73m 2 [facility] EGFR-NON AF CITIZEN OF [place] >60 >=6 0 mL/min/1.73m 2 [facility] CBC AUTO DIFFon 12-06-2022 BASO # 0.0 103/ul Normal 0.0-0.1 [facility] Comment on above: Performed By: #### C BC #### [facility] [address] [place] [address] Dr. Ashlie Hills Basophils/100 WBC (Bld) 0.1 % Critically low 0.2-2.0 [facility] Comment on above: Performed By: #### C BC #### [facility] [address] [place] [address] Dr. Ashlie Hills EO # 0.0 103/ul Normal 0.0-0.7 [facility] Comment on above: Performed By: #### C BC #### [facility] [address] [place] [address] Dr. Ashlie Hills Eosinophils/100 WBC (Bld) 0.0 % Critically low 0.9-7.0 [facility] Comment on above: Performed By: #### C BC #### [facility] [address] [place] [address] Dr. Ashlie Hills Erythrocyte distribution width (RBC) [Ratio] 14.9 % Normal 11.0-15.0 [facility] Comment on above: Performed By: #### C BC #### [facility] [address] [place] [address] Dr. Ashlie Hills Hematocrit (Bld) [Volume fraction] 46.2 % Normal 36.0-48.0 [facility] Comment on above: Performed By: #### C BC #### [facility] [address] [place] [address] Dr. Ashlie Hills Hemoglobin (Bld) [Mass/Vol] 14.7 g/dL Normal 12.0-16.0 [facility] Comment on above: Performed By: #### C BC #### [facility] [address] [place] [address] Dr. Ashlie Hills IG # 0.06 10e3/ul Critically high 0.00-0.03 [facility] Comment on above: Performed By: #### C BC #### [facility] [address] [place] [address] Dr. Ashlie Hills IG % 0.4 % Normal 0.0-0.5 [facility] Comment on above: Performed By: #### C BC #### [facility] [address] [place] [address] Dr. Ashlie Hills LYMPH # 1.3 103/ul Normal 1.2-3.8 [facility] Comment on above: Performed By: #### C BC #### [facility] [address] [place] [address] Dr. Ashlie Hills Lymphocytes/100 WBC (Bld) 9.4 % Critically low 20.5-60.0 [facility] Comment on above: Performed By: #### C BC #### [facility] [address] [place] [address] Dr. Ashlie Hills MANUAL DIFF REQ NO Normal [facility] Comment on above: Performed By: #### C BC #### [facility] [address] [place] [address] Dr. Ashlie Hills MCH (RBC) [Entitic mass] 28.4 pg Normal 26.7-34.0 [facility] Comment on above: Performed By: #### C BC #### [facility] [address] [place] [address] Dr. Ashlie Hills MCHC (RBC) [Mass/Vol] 31.8 g/dL Normal 29.9-35.2 [facility] Comment on above: Performed By: #### C BC #### [facility] [address] [place] [address] Dr. Ashlie Hills MCV (RBC) [Entitic vol] 89.4 fL Normal 81.0-99.0 [facility] Comment on above: Performed By: #### C BC #### [facility] [address] [place] [address] Dr. Ashlie Hills MONO # 0.5 103/ul Normal 0.3-0.8 [facility] [place] Comment on above: Performed By: #### C BC #### [facility] [address] [place] [address] Dr. Ashlie Hills Monocytes/100 WBC (Bld) 3.4 % Normal 1.7-12.0 [facility] Comment on above: Performed By: #### C BC #### [facility] [address] [place] [address] Dr. Ashlie Hills NEUT # 11.8 103/ul Critically high 1.4-6.5 [facility] Comment on above: Performed By: #### C BC #### [facility] [address] [place] [address] Dr. Ashlie Hills Neutrophils/100 WBC (Bld) 86.7 % Critically high 43.0-75.0 [facility] Comment on above: Performed By: #### C BC #### [facility] [address] [place] [address] Dr. Ashlie Hills Platelet mean volume (Bld) [Entitic vol] 12.6 fL Normal 9.5-13.5 [facility] Comment on above: Performed By: #### C BC #### [facility] [address] [place] [address] Dr. Ashlie Hills PLT 133 103/ul Critically low 150-450 [facility] Comment on above: Performed By: #### C BC #### [facility] [address] [place] [address] Dr. Ashlie Hills RBC 5.17 106/ul Normal 4.20-5.40 [facility] Comment on above: Performed By: #### C BC #### [facility] [address] [place] [address] Dr. Ashlie Hills WBC 13.6 103/ul Critically high 4.0-11.0 [facility] Comment on above: Performed By: #### C BC #### [facility] [address] [place] [address] Dr. Ashlie Hills MAGNESIUMon 12-06-2022 Magnesium [Mass/Vol] 2.2 mg/dL Normal 1.8-2.4 [facility] Comment on above: Performed By: #### I NFLUAB #### [facility] [address] [place] [address] Dr. Ashlie Hills POINT OF CARE GLUCOSEon 11-08 Glucose [Mass/Vol] 340 mg/dL Critically high 74-106 [facility] Comment on above: Performed By: #### P OCGLUC #### [facility] [address] [place] [address] Dr. Ashlie Hills Glucose [Mass/Vol] 276 mg/dL Critically high 74-106 [facility] Comment on above: Performed By: #### C BC #### [facility] [address] [place] [address] Dr. Ashlie Hills Glucose [Mass/Vol] 333 mg/dL Critically high 74-106 [facility] Comment on above: Performed By: #### C BC #### [facility] [address] [place] [address] Dr. Ashlie Hills PROF CHEM 8 (BAS METB)on Anion gap [Moles/Vol] 10.9 mmol/L Normal [facility] Comment on above: Performed By: #### I NFLUAB #### [facility] [address] [place] [address] Dr. Ashlie Hills Calcium [Mass/Vol] 9.3 mg/dL Normal 8.5-10.1 [facility] Comment on above: Performed By: #### I NFLUAB #### [facility] [address] [place] [address] Dr. Ashlie Hills Chloride [Moles/Vol] 103 mmol/L Normal 98-107 [facility] Comment on above: Performed By: #### I NFLUAB #### [facility] [address] [place] [address] Dr. Ashlie Hills CO2 [Moles/Vol] 31.2 mmol/L Normal 21.0-32.0 [facility] Comment on above: Performed By: #### I NFLUAB #### [facility] [address] [place] [address] Dr. Ashlie Hills Creatinine [Mass/Vol] 0.96 mg/dL Normal 0.55-1.02 [facility] Comment on above: Performed By: #### I NFLUAB #### [facility] [address] [place] [address] Dr. Ashlie Hills EGFR-AF CITIZEN OF [place] >60 Normal >=60 [facility] Comment on above: Performed By: #### I NFLUAB #### [facility] [address] [place] [address] Dr. Ashlie Hills EGFR-NON AF CITIZEN OF [place] >60 Normal >=60 [facility] Comment on above: Performed By: #### I NFLUAB #### [facility] [address] [place] [address] Dr. Ashlie Hills Glucose [Mass/Vol] 288 mg/dL Critically high 74-106 [facility] Comment on above: Performed By: #### I NFLUAB #### [facility] [address] [place] [address] Dr. Ashlie Hills Potassium [Moles/Vol] 5.1 mmol/L Normal 3.5-5.1 [facility] Comment on above: Performed By: #### I NFLUAB #### [facility] [address] [place] [address] Dr. Ashlie Hills Sodium [Moles/Vol] 140 mmol/L Normal 136-145 [facility] Comment on above: Performed By: #### I NFLUAB #### [facility] [address] [place] [address] Dr. Ashlie Hills Urea nitrogen [Mass/Vol] 30.0 mg/dL Critically high 7.0-18 .0 [facility] Comment on above: Performed By: #### I NFLUAB #### [facility] [address] [place] [address] Dr. Ashlie Hills Urea nitrogen/Creatinine [Mass ratio] 31.2 mg/mg Normal [facility] Comment on above: Performed By: #### I NFLUAB #### [facility] [address] [place] [address] Dr. Ashlie Hills CBC AUTO DIFFon 12-05-2022 BASO # 0.0 103/ul Normal 0.0-0.1 [facility] Comment on above: Performed By: #### C BC #### [facility] [address] [place] [address] Dr. Ashlie Hills Basophils/100 WBC (Bld) 0.4 % Normal 0.2-2.0 [facility] Comment on above: Performed By: #### C BC #### [facility] [address] [place] [address] Dr. Ashlie Hills EO # 0.0 103/ul Normal 0.0-0.7 [facility] [place] Comment on above: Performed By: #### C BC #### [facility] [address] [place] [address] Dr. Ashlie Hills Eosinophils/100 WBC (Bld) 0.0 % Critically low 0.9-7.0 [facility] Comment on above: Performed By: #### C BC #### [facility] [address] [place] [address] Dr. Ashlie Hills Erythrocyte distribution width (RBC) [Ratio] 14.8 % Normal 11.0-15.0 [facility] Comment on above: Performed By: #### C BC #### [facility] [address] [place] [address] Dr. Ashlie Hills Hematocrit (Bld) [Volume fraction] 49.9 % Critically high 36.0-48.0 [facility] Comment on above: Performed By: #### C BC #### [facility] [address] [place] [address] Dr. Ashlie Hills Hemoglobin (Bld) [Mass/Vol] 15.7 g/dL Normal 12.0-16.0 [facility] Comment on above: Performed By: #### C BC #### [facility] [address] [place] [address] Dr. Ashlie Hills IG # 0.04 10e3/ul Critically high 0.00-0.03 [facility] Comment on above: Performed By: #### C BC #### [facility] [address] [place] [address] Dr. Ashlie Hills IG % 0.5 % Normal 0.0-0.5 [facility] Comment on above: Performed By: #### C BC #### [facility] [address] [place] [address] Dr. Ashlie Hills LYMPH # 1.1 103/ul Critically low 1.2-3.8 [facility] Comment on above: Performed By: #### C BC #### [facility] [address] [place] [address] Dr. Ashlie Hills Lymphocytes/100 WBC (Bld) 12.7 % Critically low 20.5-60.0 [facility] Comment on above: Performed By: #### C BC #### [facility] [address] [place] [address] Dr. Ashlie Hills MANUAL DIFF REQ NO Normal [facility] Comment on above: Performed By: #### C BC #### [facility] [address] [place] [address] Dr. Ashlie Hills MCH (RBC) [Entitic mass] 28.1 pg Normal 26.7-34.0 [facility] [place] Comment on above: Performed By: #### C BC #### [facility] [address] [place] [address] Dr. Ashlie Hills MCHC (RBC) [Mass/Vol] 31.5 g/dL Normal 29.9-35.2 [facility] Comment on above: Performed By: #### C BC #### [facility] [address] [address] [address] Ashlie Hills MCV (RBC) [Entitic vol] 89.3 fL Normal 81.0-99.0 [facility] Comment on above: Performed By: #### C BC #### [facility] [address] [address] [address] Ashlie Hills MONO # 0.1 103/ul Critically low 0.3-0.8 [facility] Comment on above: Performed By: #### C BC #### [facility] [address] [place] [address] Dr. Ashlie Hills Monocytes/100 WBC (Bld) 1.3 % Critically low 1.7-12.0 [facility] Comment on above: Performed By: #### C BC #### [facility] [address] [place] [address] Dr. Ashlie Hills NEUT # 7.2 103/ul Critically high 1.4-6.5 [facility] Comment on above: Performed By: #### C BC #### [facility] [address] [place] [address] Dr. Ashlie Hills Neutrophils/100 WBC (Bld) 85.1 % Critically high 43.0-75.0 [facility] Comment on above: Performed By: #### C BC #### [facility] [address] [place] [address] Dr. Ashlie Hills Platelet mean volume (Bld) [Entitic vol] 12.2 fL Normal 9.5-13.5 [facility] Comment on above: Performed By: #### C BC #### [facility] [address] [place] [address] Dr. Ashlie Hills PLT 116 103/ul Critically low 150-450 [facility] Comment on above: Performed By: #### C BC #### [facility] [address] [place] [address] Dr. Ashlie Hills RBC 5.59 106/ul Critically high 4.20-5.40 [facility] Comment on above: Performed By: #### C BC #### [facility] [address] [place], [place] [address] Dr. Ashlie Hills WBC 8.5 103/ul Normal 4.0-11.0 [facility] Comment on above: Performed By: #### C BC #### [facility] [id number] Ashlie Hills CTA CHEST WO W [...] by: HATTIE GOFF Date: 2022-12-05 01:52 Normal [facility] MAGNESIUMon 12-05-2022 Magnesium [Mass/Vol] 2.1 mg/dL Normal 1.8-2.4 [facility] Comment on above: Performed By: #### P OCGLUC #### [facility] [address] [address] [address] Ashlie Hills POINT OF CARE GLUCOSEon 11-08 Glucose [Mass/Vol] 293 mg/dL Critically high 74-106 [facility] Comment on above: Performed By: #### P OCGLUC #### [facility] [address] [address] [address] Ashlie Hills Glucose [Mass/Vol] 269 mg/dL Critically high -106 [facility] Comment on above: Performed By: #### P OCGLUC #### [facility] [address] [place] [address] Dr. Ashlie Hills Glucose [Mass/Vol] 223 mg/dL Critically high -106 [facility] Comment on above: Performed By: #### C VDAGS #### [facility] [address] [place] [address] Dr. Ashlie Hills PROF CHEM 8 (BAS METB)on Anion gap [Moles/Vol] 11.6 mmol/L Normal [facility] Comment on above: Performed By: #### P OCGLUC #### [facility] [address] [place] [address] Dr. Ashlie Hills Calcium [Mass/Vol] 9.2 mg/dL Normal 8.5-10.1 [facility] Comment on above: Performed By: #### P OCGLUC #### [facility] [address] [place] [address] Dr. Ashlie Hills Chloride [Moles/Vol] 102 mmol/L Normal 98-107 [facility] Comment on above: Performed By: #### P OCGLUC #### [facility] [address] [place] [address] Dr. Ashlie Hills CO2 [Moles/Vol] 28.7 mmol/L Normal 21.0-32.0 [facility] Comment on above: Performed By: #### P OCGLUC #### [facility] [address] [address] [address] Ashlie Hills Creatinine [Mass/Vol] 1.04 mg/dL Critically high 0.55-1.02 [facility] Comment on above: Performed By: #### P OCGLUC #### [facility] [address] [address] [address] Ashlie Hills EGFR-AF CITIZ[place] OF [place] >60 Normal >=60 [facility] Comment on above: Performed By: #### P OCGLUC #### [facility] [address] [address] [address] Ashlie Hills EGFR-NON AF CITIZEN OF [place] 56 mL/min/1.73m2 Critically low >=60 [facility] Comment on above: Performed By: #### P OCGLUC #### [facility] [address] [address] [address] Ashlie Hills Glucose [Mass/Vol] 231 mg/dL Critically high 74-106 [facility] Comment on above: Performed By: #### P OCGLUC #### [facility] [address] [address] [address] Ashlie Hills Potassium [Moles/Vol] 4.3 mmol/L Normal 3.5-5.1 [facility] Comment on above: Performed By: #### P OCGLUC #### [facility] [address] [address] [address] Ashlie Hills Sodium [Moles/Vol] 138 mmol/L Normal 136-145 [facility] Comment on above: Performed By: #### P OCGLUC #### [facility] [address] [address] [address] Ashlie Hills Urea nitrogen [Mass/Vol] 17.0 mg/dL Normal 7.0-18.0 [facility] Comment on above: Performed By: #### P OCGLUC #### [facility] [address] [address] [address] Ashlie Hills Urea nitrogen/Creatinine [Mass ratio] 16.3 mg/mg Normal [facility] Comment on above: Performed By: #### P OCGLUC #### [facility] [address] [address] [address] Ashlie Hills RESPIRATORY PANEL PLUSon Adenovirus Not detected Normal NOT DETECTED [facility] Comment on above: Performed By: #### C VDAGS #### [facility] [address] [place] [address] Dr. Ashlie Shaffer. Parapertusis Not detected Normal NOT DETECTED [facility] Comment on above: Performed By: #### C VDAGS #### [facility] [address] [place] [address] Dr. Ashlie Shaffer. Pertussis Not detected Normal NOT DETECTED [facility] Comment on above: Performed By: #### C VDAGS #### [facility] [address] [place] [address] Dr. Ashlie Hills Chlamydia Pneumoniae Not detected Normal NOT DETECTED [facility] Comment on above: Performed By: #### C VDAGS #### [facility] [address] [place] [address] Dr. Ashlie Hills Coronavirus 229E Not detected Normal NOT DETECTED [facility] Comment on above: Performed By: #### C VDAGS #### [facility] [address] [place] [address] Dr. Ashlie Hills Coronavirus HKU1 Not detected Normal NOT DETECTED [facility] Comment on above: Performed By: #### C VDAGS #### [facility] [address] [place] [address] Dr. Ashlie Hills Coronavirus NL63 Not detected Normal NOT DETECTED [facility] Comment on above: Performed By: #### C VDAGS #### [facility] [address] [place] [address] Dr. Ashlie Hills Coronavirus OC43 Not detected Normal NOT DETECTED [facility] Comment on above: Performed By: #### C VDAGS #### [facility] [address] [place] [address] Dr. Ashlie Hills Influenza A H1 Not detected Normal NOT DETECTED [facility] Comment on above: Performed By: #### C VDAGS #### [facility] [address] [place] [address] Dr. Ashlie Hills Influenza A H1 2009 Not detected Normal NOT DETECTED [facility] Comment on above: Performed By: #### C VDAGS #### [facility] [address] [address] [address] Ashlie Hills Influenza A H3 Not detected Normal NOT DETECTED [facility] Comment on above: Performed By: #### C VDAGS #### [facility] [address] [address] [address] Ashlie Hills Influenza B Not detected Normal NOT DETECTED [facility] Comment on above: Performed By: #### C VDAGS #### [facility] [address] [address] [address] Ashlie Hills Metapneumovirus Not detected Normal NOT DETECTED [facility] Comment on above: Performed By: #### C VDAGS #### [facility] [address] [place] [address] Dr. Ashlie Hills Mycoplas. Pneumoniae Not detected Normal NOT DETECTED [facility] Comment on above: Performed By: #### C VDAGS #### [facility] [address] [place] [address] Dr. Ashlie Hills Parainfluenza 1 Not detected Normal NOT DETECTED [facility] Comment on above: Performed By: #### C VDAGS #### [facility] [address] [place] [address] Dr. Ashlie Hills Parainfluenza 2 Not detected Normal NOT DETECTED [facility] Comment on above: Performed By: #### C VDAGS #### [facility] [address] [place] [address] Dr. Ashlie Hills Parainfluenza 3 Detected Abnormal NOT DETECTED [facility] Comment on above: Performed By: #### C VDAGS #### [facility] [address] [address] [address] Ashlie Hills Parainfluenza 4 Not detected Normal NOT DETECTED [facility] Comment on above: Performed By: #### C VDAGS #### [facility] [address] [place] [address] Dr. Ashlie Hills Rhino/Enterovirus Not detected Normal NOT DETECTED [facility] Comment on above: Performed By: #### C VDAGS #### [facility] [address] [place] [address] Dr. Ashlie Hills RP2 Header 1 RESPIRATORY PANEL: VIRUSES Normal [facility] Comment on above: Performed By: #### C VDAGS #### [facility] [address] [place] [address] Dr. Ashlie Hills RP2 Header 2 RESPIRATORY PANEL: BACTERIA Normal [facility] Comment on above: Performed By: #### C VDAGS #### [facility] [address] [place] [address] Dr. Ashlie Hills RSV Not detected Normal NOT DETECTED [facility] Comment on above: Performed By: #### C VDAGS #### [facility] [address] [place] [address] Dr. Ashlie Hills SARS-CoV-2 (COVID-19) RNA MADDY+probe Ql (Unsp spec) Not detected Normal NOT DETECTED [facility] Comment on above: Performed By: #### C VDAGS #### [facility] [address] [place] [address] Dr. Ashlie Hills XR CHEST 1 Von [...] by: MARYANNE POWER Date: 2022-12-04 22:23 Normal [facility] BLOOD GASES BTYon 12-04-2022 02 MODE ROOM AIR Normal [facility] Comment on above: Performed By: #### C BC #### [facility] [address] [place] [address] Dr. Ashlie Hills ALLENS TEST Positive Normal [facility] Comment on above: Performed By: #### C BC #### [facility] [address] [place] [address] Dr. Ashlie Hills Base excess Calc (Bld) [Moles/Vol] 5.4 mmol/L Critically high -2.0-2.0 [facility] Comment on above: Performed By: #### C BC #### [facility] [address] [address] [address] Ashlie Hills BIPAP PRESSURE Normal [facility] Comment on above: Performed By: #### C BC #### [facility] [address] [address] [address] Ashlie Hills CPAP [facility] Comment on above: Performed By: #### C BC #### [facility] [address] [address] [address] Ashlie Hills FIO2 [facility] Comment on above: Performed By: #### C BC #### [facility] [address] [place] [address] Dr. Ashlie Hills HCO3 (Bld) [Moles/Vol] 30.8 mmol/L Critically high 22.0-26 .0 [facility] Comment on above: Performed By: #### C BC #### [facility] [address] [address] [address] Ashlie Hills LPM Normal [facility] Comment on above: Performed By: #### C BC #### [facility] [address] [place] [address] Dr. Ashlie Hills MINUTE VOLUME Normal [facility] [place] [facility] Comment on above: Performed By: #### C BC #### [facility] [address] [place] [address] Dr. Ashlie Hills Oxygen (Bld) [Partial pressure] 46.3 mm[Hg] Critically low 80.0-100.0 [facility] Comment on above: Performed By: #### C BC #### [facility] [address] [place] [address] Dr. Ashlie Hills Oxygen saturation in Blood 83.9 % Critically low 95.0-100.0 [facility] Comment on above: Performed By: #### C BC #### [facility] [address] [address] [address] Ashlie Hills PCO2 54.2 mmHg Critically high 35.0-45.0 [facility] Comment on above: Performed By: #### C BC #### [facility] [address] [address] [address] Ashlie Hills PEEP [facility] Comment on above: Performed By: #### C BC #### [facility] [address] [address] [address] Ashlie Hills pH (Bld) 7.363 [pH] Normal 7.350-7.450 [facility] Comment on above: Performed By: #### C BC #### [facility] [address] [address] [address] Ashlie Hills [facility] Comment on above: Performed By: #### C BC #### [facility] [address] [place] [address] Dr. Ashlie Hills [facility] Comment on above: Performed By: #### C BC #### [facility] [address] [place] [address] Dr. Ashlie Hills PUNCTURE SITE LR [facility] Comment on above: Performed By: #### C BC #### [facility] [address] [address] [address] Ashlie Hills RATE [facility] Comment on above: Performed By: #### C BC #### [facility] [address] [place] [address] Dr. Ashlie Hills VENT MODE [facility] Comment on above: Performed By: #### C BC #### [facility] [address] [place] [address] Dr. Ashlie Hills [facility] Comment on above: Performed By: #### C BC #### [facility] [address] [place] [address] Dr. Ashlie Hills BNPon 12-04-2022 Natriuretic peptide B (Bld) [Mass/Vol] 76.0 pg/mL Normal <=900.0 [facility] Comment on above: Performed By: #### P OCGLUC #### [facility] [address] [place] [address] Dr. Ashlie Hills CBC AUTO DIFFon 12-04-2022 BASO # 0.1 103/ul Normal 0.0-0.1 [facility] Comment on above: Performed By: #### C BC #### [facility] [address] [place] [address] Dr. Ashlie Hills Basophils/100 WBC (Bld) 0.6 % Normal 0.2-2.0 [facility] Comment on above: Performed By: #### C BC #### [facility] [address] [place] [address] Dr. Ashlie Hills EO # 0.2 103/ul Normal 0.0-0.7 [facility] Comment on above: Performed By: #### C BC #### [facility] [address] [place] [address] Dr. Ashlie Hills Eosinophils/100 WBC (Bld) 1.9 % Normal 0.9-7.0 [facility] Comment on above: Performed By: #### C BC #### [facility] [address] [place] [address] Dr. Ashlie Hills Erythrocyte distribution width (RBC) [Ratio] 15.0 % Normal 11.0-15.0 [facility] Comment on above: Performed By: #### C BC #### [facility] [address] [place] [address] Dr. Ashlie Hills Hematocrit (Bld) [Volume fraction] 49.1 % Critically high 36.0-48.0 [facility] Comment on above: Performed By: #### C BC #### [facility] [address] [place] [address] Dr. Ashlie Hills Hemoglobin (Bld) [Mass/Vol] 15.6 g/dL Normal 12.0-16.0 [facility] Comment on above: Performed By: #### C BC #### [facility] [address] [place] [address] Dr. Ashlie Hills IG # 0.02 10e3/ul Normal 0.00-0.03 [facility] Comment on above: Performed By: #### C BC #### [facility] [address] [place] [address] Dr. Ashlie Hills IG % 0.2 % Normal 0.0-0.5 [facility] Comment on above: Performed By: #### C BC #### [facility] [address] [place] [address] Dr. Ashlie Hills LYMPH # 2.8 103/ul Normal 1.2-3.8 [facility] Comment on above: Performed By: #### C BC #### [facility] [address] [place] [address] Dr. Ashlie Hills Lymphocytes/100 WBC (Bld) 29.9 % Normal 20.5-60.0 [facility] Comment on above: Performed By: #### C BC #### [facility] [address] [place] [address] Dr. Ashlie Hills MANUAL DIFF REQ NO Normal [facility] Comment on above: Performed By: #### C BC #### [facility] [address] [place] [address] Dr. Ashlie Hills MCH (RBC) [Entitic mass] 28.5 pg Normal 26.7-34.0 [facility] Comment on above: Performed By: #### C BC #### [facility] [address] [place] [address] Dr. Ashlie Hills MCHC (RBC) [Mass/Vol] 31.8 g/dL Normal 29.9-35.2 [facility] Comment on above: Performed By: #### C BC #### [facility] [address] [place] [address] Dr. Ashlie Hills MCV (RBC) [Entitic vol] 89.8 fL Normal 81.0-99.0 [facility] Comment on above: Performed By: #### C BC #### [facility] [address] [place] [address] Dr. Ashlie Hills MONO # 1.0 103/ul Critically high 0.3-0.8 [facility] Comment on above: Performed By: #### C BC #### [facility] [address] [place] [address] Dr. Ashlie Hills Monocytes/100 WBC (Bld) 10.6 % Normal 1.7-12.0 [facility] Comment on above: Performed By: #### C BC #### [facility] [address] [place] [address] Dr. Ashlie Hills NEUT # 5.3 103/ul Normal 1.4-6.5 [facility] Comment on above: Performed By: #### C BC #### [facility] [address] [place] [address] Dr. Ashlie Hills Neutrophils/100 WBC (Bld) 56.8 % Normal 43.0-75.0 [facility] Comment on above: Performed By: #### C BC #### [facility] [address] [place] [address] Dr. Ashlie Hills Platelet mean volume (Bld) [Entitic vol] 12.5 fL Normal 9.5-13.5 [facility] Comment on above: Performed By: #### C BC #### [facility] [address] [place] [address] Dr. Ashlie Hills PLT 109 103/ul Critically low 150-450 [facility] Comment on above: Performed By: #### C BC #### [facility] [address] [place] [address] Dr. Ashlie Hills RBC 5.47 106/ul Critically high 4.20-5.40 [facility] Comment on above: Performed By: #### C BC #### [facility] [address] [place] [address] Dr. Ashlie Hills WBC 9.4 103/ul Normal 4.0-11.0 [facility] Comment on above: Performed By: #### C BC #### [facility] [address] [place] [address] Dr. Ashlie Hills PROF 14(COMP METB)on 023 Albumin [Mass/Vol] 2.9 g/dL Critically low 3.4-5.0 [facility] Comment on above: Performed By: #### C BC #### [facility] [address] [place] [address] Dr. Ashlie Hills Albumin/Globulin [Mass ratio] 0.6 {ratio} Normal [facility] Comment on above: Performed By: #### C BC #### [facility] [address] [place] [address] Dr. Ashlie Hills ALP [Catalytic activity/Vol] 64 U/L Normal 46-116 [facility] Comment on above: Performed By: #### C BC #### [facility] [address] [place] [address] Dr. Ashlie Hills ALT [Catalytic activity/Vol] 16 U/L Normal 14-59 [facility] Comment on above: Performed By: #### C BC #### [facility] [address] [place] [address] Dr. Ashlie Hills Anion gap [Moles/Vol] 9.6 mmol/L Normal [facility] Comment on above: Performed By: #### C BC #### [facility] [address] [place] [address] Dr. Ashlie Hills AST [Catalytic activity/Vol] 16 U/L Normal 15-37 [facility] Comment on above: Performed By: #### C BC #### [facility] [address] [place] [address] Dr. Ashlie Hills Bilirubin [Mass/Vol] 0.5 mg/dL Normal 0.2-1.0 [facility] Comment on above: Performed By: #### C BC #### [facility] [address] [place] [address] Dr. Ashlie Hills Calcium [Mass/Vol] 8.7 mg/dL Normal 8.5-10.1 [facility] Comment on above: Performed By: #### C BC #### [facility] [address] [place] [address] Dr. Ashlie Hills Chloride [Moles/Vol] 103 mmol/L Normal 98-107 [facility] Comment on above: Performed By: #### C BC #### [facility] [address] [place] [address] Dr. Ashlie Hills CO2 [Moles/Vol] 30.7 mmol/L Normal 21.0-32.0 [facility] Comment on above: Performed By: #### C BC #### [facility] [address] [address] [address] Ashlie Hills Creatinine [Mass/Vol] 0.96 mg/dL Normal 0.55-1.02 [facility] Comment on above: Performed By: #### C BC #### [facility] [address] [address] [address] Ashlie Hills EGFR-AF CITIZEN OF [place] >60 Normal >=60 [facility] Comment on above: Performed By: #### C BC #### [facility] [address] [address] [address] Ashlie Hills EGFR-NON AF CITIZEN OF [place] >60 Normal >=60 [facility] Comment on above: Performed By: #### C BC #### [facility] [address] [address] [address] Ashlie Hills Globulin (S) [Mass/Vol] 4.7 g/dL Normal [facility] Comment on above: Performed By: #### C BC #### [facility] [address] [address] [address] Ashlie Hills Glucose [Mass/Vol] 170 mg/dL Critically high 74-106 [facility] Comment on above: Performed By: #### C BC #### [facility] [address] [address] [address] Ashlie Hills Potassium [Moles/Vol] 4.3 mmol/L Normal 3.5-5.1 [facility] Comment on above: Performed By: #### C BC #### [facility] [address] [address] [address] Ashlie Hills Protein [Mass/Vol] 7.6 g/dL Normal 6.4-8.2 [facility] Comment on above: Performed By: #### C BC #### [facility] [address] [address] [address] Ashlie Hills Sodium [Moles/Vol] 139 mmol/L Normal 136-145 [facility] Comment on above: Performed By: #### C BC #### [facility] [address] [address] [address] Ashlie Hills Urea nitrogen [Mass/Vol] 16.0 mg/dL Normal 7.0-18.0 [facility] Comment on above: Performed By: #### C BC #### [facility] [id number] Ashlie Hills Urea nitrogen/Creatinine [Mass ratio] 16.7 mg/mg Normal [facility] Comment on above: Performed By: #### C BC #### [facility] [address] [address] [address] Ashlie Hills SYMPTOMATIC COVID-19 ANTIGEN on 12-04-2022 EUA Statement SEE BELOW Normal [facility] [...] sooner. Performed By: #### C VDAGS #### [facility] [address] [place] [address] Dr. Ashlie Hills SARS-CoV-2 (COVID-19) RNA MADDY+probe Ql (Unsp spec) Negative Normal NEGATIVE [facility] Comment on above: Performed By: #### C VDAGS #### [facility] [address] [place] [address] Dr. Ashlie Hills TROPONIN, HIGH SENSITIVITYon 12-04-2022 HSTROP 8.9 pg/mL Normal 4.0-51.3 [facility] Comment on above: Result Comment: CUT- OFF POINTS HAVE BEEN ESTABLISHED BASED ON THE FOURTH UNIVERSAL DEFINITIONS OF MYOCARDIAL INFARCTION. THE UPPER REFERENCE LIMIT (URL) OF TROPONIN, DEFINED THE 99TH PERCENTILE OF cTnI DISTRIBUTION IN A REFERENCE POPULATION, HAS BEEN CONFIRMED THE DECISION THRESHOLD FOR LA DIAGNOSIS. Performed By: #### P OCGLUC #### [facility] [address] [place] [address] Dr. Ashlie Hills MICROALBUMIN, RAND URon - mALB 35.8 mg/dL Critically high <=30.0 [facility] Comment on above: Performed By: #### C VDAGS #### [facility] [address] [place] [address] Dr. Ashlie Hills UA RANDOM W/MICROSCOPICon BACTERIA NONE SEEN Normal NONE SEEN [facility] Comment on above: Performed By: #### C VDAGS #### [facility] [address] [place] [address] Dr. Ashlie Hills Bilirubin Ql (U) Negative Normal NEGATIVE [facility] Comment on above: Performed By: #### C VDAGS #### [facility] [address] [place] [address] Dr. Ashlie Hills CAST SEEN Abnormal NONE SEEN [facility] Comment on above: Performed By: #### C VDAGS #### [facility] [address] [place] [address] Dr. Ashlie Hills Clarity (U) CLEAR Normal CLEAR [facility] Comment on above: Performed By: #### C VDAGS #### [facility] [address] [place] [address] Dr. Ashlie Hills Color (U) YELLOW Normal YELLOW [facility] Comment on above: Performed By: #### C VDAGS #### [facility] [address] [place] [address] Dr. Ashlie Hills Crystals LM Nom (Urine sed) NONE SEEN Normal NONE SEEN [facility] Comment on above: Performed By: #### C VDAGS #### [facility] [address] [place] [address] Dr. Ashlie Hills Epithelial cells LM Ql (Urine sed) MODERATE Abnormal NONE SEEN /RARE [facility] Comment on above: Performed By: #### C VDAGS #### [facility] [address] [place] [address] Dr. Ashlie Hills Glucose Ql (U) Negative Normal NEGATIVE [facility] Comment on above: Performed By: #### C VDAGS #### [facility] [address] [place] [address] Dr. Ashlie Hills Hemoglobin Ql (U) TRACE-INTACT Abnormal NEGATIVE [facility] Comment on above: Performed By: #### C VDAGS #### [facility] [address] [place] [address] Dr. Ashlie Hills Ketones Ql (U) Negative Normal NEGATIVE [facility] Comment on above: Performed By: #### C VDAGS #### [facility] [address] [place] [address] Dr. Ashlie Hills LEUKOCYTES Negative Normal NEGATIVE [facility] Comment on above: Performed By: #### C VDAGS #### [facility] [address] [place] [address] Dr. Ashlie Hills MUCOUS NONE SEEN Normal NONE SEEN [facility] Comment on above: Performed By: #### C VDAGS #### [facility] [address] [place] [address] Dr. Ashlie Hills Nitrite Ql (U) Negative Normal NEGATIVE [facility] Comment on above: Performed By: #### C VDAGS #### [facility] [address] [place] [address] Dr. Ashlie Hills pH (U) 5.0 [pH] Normal 5-9 [facility] Comment on above: Performed By: #### C VDAGS #### [facility] [address] [place] [address] Dr. Ashlie Hills RBC 0-2 Normal 0-2 [facility] Comment on above: Performed By: #### C VDAGS #### [facility] [address] [place] [address] Dr. Ashlie Hills SPEC GRAVITY 1.030 Abnormal 1.005-<=1.02 5 [facility] Comment on above: Performed By: #### C VDAGS #### [facility] [address] [address] [address] Ashlie Hills UA PROTEIN 100 mg/dl Abnormal NEGATIVE/ TRACE [facility] Comment on above: Performed By: #### C VDAGS #### [facility] [address] [place] [address] Dr. Ashlie Hills Urobilinogen Qn (U) 0.2 {Little'U}/dL Normal 0.2 - 1. 0 [facility] Comment on above: Performed By: #### C VDAGS #### [facility] [address] [place] [address] Dr. Ashlie Hills WBC NONE SEEN Normal NONE SEEN [facility] Comment on above: Performed By: #### C VDAGS #### [facility] [address] [place] [address] Dr. Ashlie Hills CBC AUTO DIFFon 11-22-2022 BASO # 0.0 103/ul Normal 0.0-0.1 [facility] Comment on above: Performed By: #### C BC #### [facility] [address] [place] [address] Dr. Ashlie Hills Basophils/100 WBC (Bld) 0.3 % Normal 0.2-2.0 [facility] Comment on above: Performed By: #### C BC #### [facility] [address] [place] [address] Dr. Ashlie Hills EO # 0.4 103/ul Normal 0.0-0.7 [facility] Comment on above: Performed By: #### C BC #### [facility] [address] [place] [address] Dr. Ashlie Hills Eosinophils/100 WBC (Bld) 3.0 % Normal 0.9-7.0 [facility] Comment on above: Performed By: #### C BC #### [facility] [address] [place] [address] Dr. Ashlie Hills Erythrocyte distribution width (RBC) [Ratio] 15.3 % Critically high 11.0-15.0 [facility] Comment on above: Performed By: #### C BC #### [facility] [address] [address] [address] Ashlie Hills Hematocrit (Bld) [Volume fraction] 52.4 % Critically high 36.0-48.0 [facility] Comment on above: Performed By: #### C BC #### [facility] [address] [address] [address] Ashlie Hills Hemoglobin (Bld) [Mass/Vol] 16.8 g/dL Critically high 12.0-16.0 [facility] Comment on above: Performed By: #### C BC #### [facility] [address] [place] [address] Dr. Ashlie Hills IG # 0.04 10e3/ul Critically high 0.00-0.03 [facility] Comment on above: Performed By: #### C BC #### [facility] [address] [place] [address] Dr. Ashlie Hills IG % 0.3 % Normal 0.0-0.5 [facility] Comment on above: Performed By: #### C BC #### [facility] [address] [place] [address] Dr. Ashlie Hills LYMPH # 4.5 103/ul Critically high 1.2-3.8 [facility] Comment on above: Performed By: #### C BC #### [facility] [address] [place] [address] Dr. Ashlie Hills Lymphocytes/100 WBC (Bld) 33.2 % Normal 20.5-60.0 [facility] Comment on above: Performed By: #### C BC #### [facility] [address] [place] [address] Dr. Ashlie Hills MANUAL DIFF REQ NO Normal [facility] Comment on above: Performed By: #### C BC #### [facility] [address] [place] [address] Dr. Ashlie Hills MCH (RBC) [Entitic mass] 28.0 pg Normal 26.7-34.0 [facility] Comment on above: Performed By: #### C BC #### [facility] [address] [address] [address] Ashlie Hills MCHC (RBC) [Mass/Vol] 32.1 g/dL Normal 29.9-35.2 [facility] Comment on above: Performed By: #### C BC #### [facility] [address] [address] [address] Ashlie Hills MCV (RBC) [Entitic vol] 87.3 fL Normal 81.0-99.0 [facility] Comment on above: Performed By: #### C BC #### [facility] [address] [address] [address] Ashlie Hills MONO # 0.8 103/ul Normal 0.3-0.8 [facility] Comment on above: Performed By: #### C BC #### [facility] [address] [place] [address] Dr. Ashlie Hills Monocytes/100 WBC (Bld) 5.7 % Normal 1.7-12.0 [facility] Comment on above: Performed By: #### C BC #### [facility] [address] [place] [address] Dr. Ashlie Hills NEUT # 7.8 103/ul Critically high 1.4-6.5 [facility] Comment on above: Performed By: #### C BC #### [facility] [address] [place] [address] Dr. Ashlie Hills Neutrophils/100 WBC (Bld) 57.5 % Normal 43.0-75.0 [facility] Comment on above: Performed By: #### C BC #### [facility] [address] [place] [address] Dr. Ashlie Hills Platelet mean volume (Bld) [Entitic vol] 12.0 fL Normal 9.5-13.5 [facility] Comment on above: Performed By: #### C BC #### [facility] [address] [place] [address] Dr. Ashlie Hills PLT 152 103/ul Normal 150-450 [facility] Comment on above: Performed By: #### C BC #### [facility] [address] [address] [address] Ashlie Hills RBC 6.00 106/ul Critically high 4.20-5.40 [facility] Comment on above: Performed By: #### C BC #### [facility] [address] [address] [address] Ashlie Hills WBC 13.6 103/ul Critically high 4.0-11.0 [facility] Comment on above: Performed By: #### C BC #### [facility] [address] [place] [address] Dr. Ashlie Hills LIPID PROFILEon 11-22-2022 CHOL-HDL RATIO NORM SEE BELOW Normal [facility] Comment on above: Result Comment: 3.3 - 4.4 LOW RISK 4.4 - 7.1 AVERAGE RISK 7.1 - 11.0 MODERATE RISK >11.0 HIGH RISK Performed By: #### C BC #### [facility] [address] [place] [address] Dr. Ashlie Hills Cholesterol [Mass/Vol] 139 mg/dL Normal <=200 [facility] Comment on above: Performed By: #### C BC #### [facility] [address] [place] [address] Dr. Ashlie Hills Cholesterol in HDL [Mass/Vol] 35 mg/dL Critically low 40-60 [facility] Comment on above: Performed By: #### C BC #### [facility] [address] [place] [address] Dr. Ashlie Hills Cholesterol in LDL [Mass/Vol] 67.4 mg/dL Normal [facility] Comment on above: Performed By: #### C BC #### [facility] [address] [address] [address] Ashlie Hills Cholesterol.total/Choles terol in HDL [Mass ratio] 4.0 {ratio} Normal [facility] Comment on above: Performed By: #### C BC #### [facility] [address] [place] [address] Dr. Ashlie Hills HDL NORMAL > or = 60 mg/dl - LOW CARDIOVASCULAR RISK <40 mg/dl - HIGH CARDIOVASCULAR RISK Normal [facility] Comment on above: Performed By: #### C BC #### [facility] [address] [address] [address] Ashlie Hills LDL CALC NORMAL SEE BELOW Normal [facility] Comment on above: Result Comment: <100 mg/dl OPTIMAL 100 - 129 mg/dl NEAR OR ABOVE OPTIMAL 130 - 159 mg/dl BORDERLINE HIGH 160 - 189 mg/dl HIGH >190 mg/dl VERY HIGH Performed By: #### C BC #### [facility] [address] [address] [address] Ashlie Hills Triglyceride [Mass/Vol] 183 mg/dL Critically high <=150 [facility] Comment on above: Performed By: #### C BC #### [facility] [address] [address] [address] Ashlie Hills VLDL CALC 36.6 mg/dL Normal [facility] Comment on above: Performed By: #### C BC #### [facility] [address] [address] [address] Ashlie Hills MG MAMM SCREEN 3D ALEX CADon 11-22-2022 MG MAMM SCREEN 3D ALEX CAD Patient: MITZI MACIAS Exam Date: 11/22/2022 : 1970 Gender:F Ordering : SAYDA BLAS [facility] Admission #: [id number] Family : Order #: [id number] CLICK HERE TO VIEW EXAM RADIOLOGY REPORT [...] unknown cancer at age 75. LOCATION: [facility] BREAST COMPOSITION: Almost entirely fatty. [...] Veloz M.D. on 11/22/2022 at 12:09 Normal [facility] PROF 14(COMP METB)on 023 Albumin [Mass/Vol] 3.0 g/dL Critically low 3.4-5.0 [facility] Comment on above: Performed By: #### C BC #### [facility] [address] [place] [address] Dr. Ashlie Hills Albumin/Globulin [Mass ratio] 0.6 {ratio} Normal [facility] Comment on above: Performed By: #### C BC #### [facility] [address] [place] [address] Dr. Ashlie Hills ALP [Catalytic activity/Vol] 68 U/L Normal 46-116 [facility] Comment on above: Performed By: #### C BC #### [facility] [address] [place] [address] Dr. Ashlie Hills ALT [Catalytic activity/Vol] 14 U/L Normal 14-59 [facility] Comment on above: Performed By: #### C BC #### [facility] [address] [place] [address] Dr. Ashlie Hills Anion gap [Moles/Vol] 12.1 mmol/L Normal [facility] Comment on above: Performed By: #### C BC #### [facility] [address] [place] [address] Dr. Ashlie Hills AST [Catalytic activity/Vol] 9 U/L Critically low 15-37 [facility] Comment on above: Performed By: #### C BC #### [facility] [address] [place] [address] Dr. Ashlie Hills Bilirubin [Mass/Vol] 0.4 mg/dL Normal 0.2-1.0 [facility] Comment on above: Performed By: #### C BC #### [facility] [address] [place] [address] Dr. Ashlie Hills Calcium [Mass/Vol] 9.0 mg/dL Normal 8.5-10.1 [facility] Comment on above: Performed By: #### C BC #### [facility] [address] [address] [address] Ashlie Hills Chloride [Moles/Vol] 105 mmol/L Normal 98-107 [facility] Comment on above: Performed By: #### C BC #### [facility] [address] [place] [address] Dr. Ashlie Hills CO2 [Moles/Vol] 30.7 mmol/L Normal 21.0-32.0 [facility] Comment on above: Performed By: #### C BC #### [facility] [address] [place] [address] Dr. Ashlie Hills Creatinine [Mass/Vol] 0.77 mg/dL Normal 0.55-1.02 [facility] Comment on above: Performed By: #### C BC #### [facility] [address] [place] [address] Dr. Ashlie Hills EGFR-AF CITIZEN [place] >60 Normal >=60 [facility] Comment on above: Performed By: #### C BC #### [facility] [address] [place] [address] Dr. Ashlie Hills EGFR-NON AF CITIZEN OF [place] >60 Normal >=60 [facility] Comment on above: Performed By: #### C BC #### [facility] [address] [place] [address] Dr. Ashlie Hills Globulin (S) [Mass/Vol] 4.8 g/dL Normal [facility] Comment on above: Performed By: #### C BC #### [facility] [address] [place] [address] Dr. Ashlie Hills Glucose [Mass/Vol] 162 mg/dL Critically high 74-106 [facility] Comment on above: Performed By: #### C BC #### [facility] [address] [address] [address] Ashlie Hills Potassium [Moles/Vol] 3.8 mmol/L Normal 3.5-5.1 [facility] Comment on above: Performed By: #### C BC #### [facility] [address] [address] [address] Ashlie Hills Protein [Mass/Vol] 7.8 g/dL Normal 6.4-8.2 [facility] Comment on above: Performed By: #### C BC #### [facility] [address] [address] [address] Ashlie Hills Sodium [Moles/Vol] 144 mmol/L Normal 136-145 [facility] Comment on above: Performed By: #### C BC #### [facility] [address] [place] [address] Dr. Ashlie Hills Urea nitrogen [Mass/Vol] 24.0 mg/dL Critically high 7.0-18 .0 [facility] Comment on above: Performed By: #### C BC #### [facility] [address] [address] [address] Ashlie Hills Urea nitrogen/Creatinine [Mass ratio] 31.2 mg/mg Normal [facility] Comment on above: Performed By: #### C BC #### [facility] [address] [address] [address] Ashlie Hills CBC AUTO DIFFon 10-05-2022 BASO # 0.1 103/ul Normal 0.0-0.1 [facility] Comment on above: Performed By: #### C BC #### [facility] [address] [address] [address] Ashlie Hills Basophils/100 WBC (Bld) 0.6 % Normal 0.2-2.0 [facility] Comment on above: Performed By: #### C BC #### [facility] [address] [address] [address] Ashlie Hills EO # 0.3 103/ul Normal 0.0-0.7 [facility] Comment on above: Performed By: #### C BC #### [facility] [address] [address] [address] Ashlie Hills Eosinophils/100 WBC (Bld) 2.1 % Normal 0.9-7.0 [facility] Comment on above: Performed By: #### C BC #### [facility] [address] [place] [address] Dr. Ashlie Hills Erythrocyte distribution width (RBC) [Ratio] 15.9 % Critically high 11.0-15.0 [facility] Comment on above: Performed By: #### C BC #### [facility] [address] [place] [address] Dr. Ashlie Hills Hematocrit (Bld) [Volume fraction] 51.8 % Critically high 36.0-48.0 [facility] Comment on above: Performed By: #### C BC #### [facility] [address] [place] [address] Dr. Ashlie Hills Hemoglobin (Bld) [Mass/Vol] 16.6 g/dL Critically high 12.0-16.0 [facility] Comment on above: Performed By: #### C BC #### [facility] [address] [place] [address] Dr. Ashlie Hills IG # 0.03 10e3/ul Normal 0.00-0.03 [facility] Comment on above: Performed By: #### C BC #### [facility] [address] [place] [address] Dr. Ashlie Hills IG % 0.2 % Normal 0.0-0.5 [facility] Comment on above: Performed By: #### C BC #### [facility] [address] [place] [address] Dr. Ashlie Hills LYMPH # 3.9 103/ul Critically high 1.2-3.8 [facility] Comment on above: Performed By: #### C BC #### [facility] [address] [place] [address] Dr. Ashlie Hills Lymphocytes/100 WBC (Bld) 31.7 % Normal 20.5-60.0 [facility] Comment on above: Performed By: #### C BC #### [facility] [address] [place] [address] Dr. Ashlie Hills MANUAL DIFF REQ NO Normal [facility] Comment on above: Performed By: #### C BC #### [facility] [address] [place] [address] Dr. Ashlie Hills MCH (RBC) [Entitic mass] 27.9 pg Normal 26.7-34.0 [facility] Comment on above: Performed By: #### C BC #### [facility] [address] [place] [address] Dr. Ashlie Hills MCHC (RBC) [Mass/Vol] 32.0 g/dL Normal 29.9-35.2 [facility] Comment on above: Performed By: #### C BC #### [facility] [address] [place] [address] Dr. Ashlie Hills MCV (RBC) [Entitic vol] 87.1 fL Normal 81.0-99.0 [facility] Comment on above: Performed By: #### C BC #### [facility] [address] [place] [address] Dr. Ashlie Hills MONO # 0.7 103/ul Normal 0.3-0.8 [facility] Comment on above: Performed By: #### C BC #### [facility] [address] [place] [address] Dr. Ashlie Hills Monocytes/100 WBC (Bld) 5.8 % Normal 1.7-12.0 [facility] Comment on above: Performed By: #### C BC #### [facility] [address] [place] [address] Dr. Ashlie Hills NEUT # 7.3 103/ul Critically high 1.4-6.5 [facility] Comment on above: Performed By: #### C BC #### [facility] [address] [place] [address] Dr. Ashlie Hills Neutrophils/100 WBC (Bld) 59.6 % Normal 43.0-75.0 [facility] Comment on above: Performed By: #### C BC #### [facility] [address] [place], [place] [address] Dr. Ashlie Hills Platelet mean volume (Bld) [Entitic vol] 11.7 fL Normal 9.5-13.5 [facility] Comment on above: Performed By: #### C BC #### [facility] [address] [address] [address] Ashlie Hills PLT 117 103/ul Critically low 150-450 [facility] Comment on above: Performed By: #### C BC #### [facility] [address] [place], [place] [address] Dr. Ashlie Hills RBC 5.95 106/ul Critically high 4.20-5.40 [facility] Comment on above: Performed By: #### C BC #### [facility] [address] [place] [address] Dr. Ashlie Hills WBC 12.3 103/ul Critically high 4.0-11.0 [facility] Comment on above: Performed By: #### C BC #### [facility] [address] [address] [address] ABD/PELV W CONon [...] RICCO PICKARD Date: 2022-10-05 13:13 Normal [facility] ER URINE PROFILEon 3 Bilirubin Ql (U) Negative Normal NEGATIVE [facility] Comment on above: Performed By: #### P OCGLUC #### [facility] [address] [address] [address] Ashlie Hills Clarity (U) CLEAR Normal CLEAR [facility] Comment on above: Performed By: #### P OCGLUC #### [facility] [address] [place] [address] Dr. Ashlie Hills Color (U) YELLOW Normal YELLOW [facility] Comment on above: Performed By: #### P OCGLUC #### [facility] [address] [place] [address] Dr. Ashlie Hills ERUAHBraulio A micrscopic examination will be performed if indicated. Normal [facility] Comment on above: Performed By: #### P OCGLUC #### [facility] [address] [address] [address] Ashlie Hills Glucose Ql (U) Negative Normal NEGATIVE [facility] [place] [facility] Comment on above: Performed By: #### P OCGLUC #### [facility] [address] [place] [address] Dr. Ashlie Hills Hemoglobin Ql (U) Negative Normal NEGATIVE [facility] Comment on above: Performed By: #### P OCGLUC #### [facility] [address] [address] [address] Ashlie Hills Ketones Ql (U) Negative Normal NEGATIVE [facility] [place] [facility] Comment on above: Performed By: #### P OCGLUC #### [facility] [address] [place] [address] Dr. Ashlie Hills LEUKOCYTES Negative Normal NEGATIVE [facility] Comment on above: Performed By: #### P OCGLUC #### [facility] [address] [place] [address] Dr. Ashlie Hills Nitrite Ql (U) Negative Normal NEGATIVE [facility] [place] [facility] Comment on above: Performed By: #### P OCGLUC #### [facility] [address] [place] [address] Dr. Ashlie Hills pH (U) 6.0 [pH] Normal 5-9 [facility] Comment on above: Performed By: #### P OCGLUC #### [facility] [address] [address] [address] Ashlie Hills Protein (U) [Mass/Vol] 100 mg/dL Abnormal NEGAT YURY/ TRACE [facility] Comment on above: Performed By: #### P OCGLUC #### [facility] [address] [place] [address] Dr. Ashlie Hills SPEC GRAVITY 1.010 Normal 1.005-<=1.02 5 [facility] Comment on above: Performed By: #### P OCGLUC #### [facility] [address] [place] [address] Dr. Ashlie Hills UR MICRO IND INDICATED Normal [facility] Comment on above: Performed By: #### P OCGLUC #### [facility] [address] [place] [address] Dr. Ashlie Hills Urobilinogen Qn (U) 1.0 {Little'U}/dL Normal 0.2 - 1. 0 [facility] Comment on above: Performed By: #### P OCGLUC #### [facility] [address] [place] [address] Dr. Ashlie Hills LIPASEon 10-05-2022 Lipase [Catalytic activity/Vol] 1771.0 U/L Critically high 73.0-393.0 [facility] Comment on above: Performed By: #### C BC #### [facility] [address] [place] [address] Dr. Ashlie Hills PREG HCG QUALon 10-05-2022 , QUAL Negative Normal NEGATIVE [facility] Comment on above: Performed By: #### P OCGLUC #### [facility] [address] [place] [address] Dr. Ashlie Hills PROF 14(COMP METB)on 023 Albumin [Mass/Vol] 3.2 g/dL Critically low 3.4-5.0 [facility] Comment on above: Performed By: #### C BC #### [facility] [address] [place] [address] Dr. Ashlie Hills Albumin/Globulin [Mass ratio] 0.7 {ratio} Normal [facility] Comment on above: Performed By: #### C BC #### [facility] [address] [address] [address] Ashlie Hills ALP [Catalytic activity/Vol] 70 U/L Normal 46-116 [facility] Comment on above: Performed By: #### C BC #### [facility] [address] [place] [address] Dr. Ashlie Hills ALT [Catalytic activity/Vol] 11 U/L Critically low 14-59 [facility] Comment on above: Performed By: #### C BC #### [facility] [address] [place] [address] Dr. Ashlie Hills Anion gap [Moles/Vol] 10.3 mmol/L Normal [facility] Comment on above: Performed By: #### C BC #### [facility] [address] [place] [address] Dr. Ashlie Hills AST [Catalytic activity/Vol] 11 U/L Critically low 15-37 [facility] Comment on above: Performed By: #### C BC #### [facility] [address] [place] [address] Dr. Ashlie Hills Bilirubin [Mass/Vol] 0.9 mg/dL Normal 0.2-1.0 [facility] Comment on above: Performed By: #### C BC #### [facility] [address] [place] [address] Dr. Ashlie Hills Calcium [Mass/Vol] 9.3 mg/dL Normal 8.5-10.1 [facility] Comment on above: Performed By: #### C BC #### [facility] [address] [place] [address] Dr. Ashlie Hills Chloride [Moles/Vol] 105 mmol/L Normal 98-107 [facility] Comment on above: Performed By: #### C BC #### [facility] [address] [address] [address] Ashlie Hills CO2 [Moles/Vol] 30.6 mmol/L Normal 21.0-32.0 [facility] Comment on above: Performed By: #### C BC #### [facility] [address] [address] [address] Ashlie Hills Creatinine [Mass/Vol] 0.62 mg/dL Normal 0.55-1.02 [facility] Comment on above: Performed By: #### C BC #### [facility] [address] [place] [address] Dr. Ashlie Hills EGFR-AF CITIZ[place] >60 Normal >=60 [facility] Comment on above: Performed By: #### C BC #### [facility] [address] [place] [address] Dr. Ashlie Hills EGFR-NON AF CITIZEN OF [place] >60 Normal >=60 [facility] Comment on above: Performed By: #### C BC #### [facility] [address] [place] [address] Dr. Ashlie Hills Globulin (S) [Mass/Vol] 4.6 g/dL Normal [facility] Comment on above: Performed By: #### C BC #### [facility] [address] [place] [address] Dr. Ashlie Hills Glucose [Mass/Vol] 85 mg/dL Normal 74-106 [facility] Comment on above: Performed By: #### C BC #### [facility] [address] [place] [address] Dr. Ashlie Hills Potassium [Moles/Vol] 3.9 mmol/L Normal 3.5-5.1 [facility] Comment on above: Performed By: #### C BC #### [facility] [address] [place] [address] Dr. Ashlie Hills Protein [Mass/Vol] 7.8 g/dL Normal 6.4-8.2 [facility] Comment on above: Performed By: #### C BC #### [facility] [address] [address] [address] Ashlie Hills Sodium [Moles/Vol] 142 mmol/L Normal 136-145 [facility] Comment on above: Performed By: #### C BC #### [facility] [address] [address] [address] Ashlie Hills Urea nitrogen [Mass/Vol] 12.0 mg/dL Normal 7.0-18.0 [facility] Comment on above: Performed By: #### C BC #### [facility] [address] [place] [address] Dr. Ashlie Hills Urea nitrogen/Creatinine [Mass ratio] 19.4 mg/mg Normal [facility] Comment on above: Performed By: #### C BC #### [facility] [address] [place] [address] Dr. Ashlie Hills URINE MICROSCOPIC ONLYon BACTERIA TRACE Abnormal NONE SEEN [facility] Comment on above: Performed By: #### P OCGLUC #### [facility] [address] [place] [address] Dr. Ashlie Hills Bacteria identified Cx Nom (U) NOT INDICATED Normal [facility] Comment on above: Performed By: #### P OCGLUC #### [facility] [address] [place] [address] Dr. Ashlie Hills CAST NONE SEEN Normal NONE SEEN [facility] Comment on above: Performed By: #### P OCGLUC #### [facility] [address] [place] [address] Dr. Ashlie Hills Crystals LM Nom (Urine sed) NONE SEEN Normal NONE SEEN [facility] Comment on above: Performed By: #### P OCGLUC #### [facility] [address] [place] [address] Dr. Ashlie Hills Epithelial cells LM Ql (Urine sed) MODERATE Abnormal NONE SEEN /RARE [facility] Comment on above: Performed By: #### P OCGLUC #### [facility] [address] [place] [address] Dr. Ashlie Hills MUCOUS NONE SEEN Normal NONE SEEN [facility] Comment on above: Performed By: #### P OCGLUC #### [facility] [address] [place] [address] Dr. Ashlie Hills RBC 0-2 Normal 0-2 [facility] Comment on above: Performed By: #### P OCGLUC #### [facility] [address] [place] [address] Dr. Ashlie Hills WBC 0-2 Abnormal NONE SEEN [facility] Comment on above: Performed By: #### P OCGLUC #### [facility] [address] [place] [address] Dr. Ashlie Hills Covid-19 PCR ([facility])on 09-06 SARS-CoV-2 (COVID-19) RNA MADDY+probe Ql (Unsp spec) Detected Abnormal NOT DETECTED [facility] Comment on above: Result Comment: This test is not yet approved or cleared by the [place] FDA. When there are no FDA-approved or cleared tests available, and other criteria are met, FDA can make tests available under an emergency access mechanism called an Emergency Use Authorization (EUA). The EUA for this test is supported by the Director Of Development of Health and Human Service's declaration that [...] used). Performed By: #### C VDAGS #### [facility] [address] [place] [address] Dr. Ashlie Hills INFLUENZA A AND B AGon 09-21 INFLUANEGH SEE BELOW Normal [facility] Comment on above: Result Comment: Nega tive for Flu A protein angiten. Infection due to Flu A cannot be ruled out. Flu A angiten in the sample may be below the detection limit of the test. Performed By: #### I NFLUAB #### [facility] [address] [place] [address] Dr. Ashlie Hills INFLUBNEGH SEE BELOW Normal [facility] Comment on above: Result Comment: Nega tive for Flu B protein antigen. Infection due to Flu B cannot be ruled out. Flu B antigen in the sample may be below the detection limit of the test. Performed By: #### I NFLUAB #### [facility] [address] [place] [address] Dr. Ashlie Hills INFLUENZA A AG Negative Normal NEGATIVE SEE COMMENT [facility] Comment on above: Performed By: #### I NFLUAB #### [facility] [address] [place] [address] Dr. Ashlie Hills INFLUENZA B AG Negative Normal NEGATIVE SEE COMMENT [facility] Comment on above: Performed By: #### I NFLUAB #### [facility] [address] [place] [address] ABD/PELV W CONon [...] to at least 10/21/2018, unchanged. https://www.ncbi.nlm .nih.gov/pmc/article s/[email or web address]/ Electronically authenticated by: COLLIN HUERTAS Date: 2022-07-27 14:56 Normal [facility] CREATININEon 07-18-2022 Creatinine [Mass/Vol] 0.81 mg/dL Normal 0.55-1.02 [facility] Comment on above: Performed By: #### C BC #### [facility] [address] [place] [address] Dr. Ashlie Hills EGFR-AF CITIZEN OF [place] >60 Normal >=60 [facility] Comment on above: Performed By: #### C BC #### [facility] [address] [place], [place] [address] Dr. Ashlie Hills EGFR-NON AF CITIZEN OF [place] >60 Normal >=60 [facility] Comment on above: Performed By: #### C BC #### [facility] [address], [place] [address] LOW EXT W [...] by: PATRICIA VELOZ Date: 2022-07-18 14:58 Normal [facility] XR KNEE LT 1_2 Von 3 XR [...] HATTIE BAUTISTA Date: 2022-07-18 12:00 Normal [facility] Covid-19 PCR ([facility])on 06-09 SARS-CoV-2 (COVID-19) RNA MADDY+probe Ql (Unsp spec) Not detected Normal NOT DETECTED [facility] Comment on above: Result Comment: This test is not yet approved or cleared by the [place] FDA. When there are no FDA-approved or cleared tests available, and other criteria are met, FDA can make tests available under an emergency access mechanism called an Emergency Use Authorization (EUA). The EUA for this test is supported by the [place] of Health and Human Service's (HHS's) declaration [...] SARS-CoV-2. Performed By: #### C BC #### [facility] [address] [place] [address] Dr. Ashlie Hills INFLUENZA A AND B AGon 07-06 [facility] SEE BELOW Normal [facility] Comment on above: Result Comment: Nega tive for Flu A protein angiten. Infection due to Flu A cannot be ruled out. Flu A angiten in the sample may be below the detection limit of the test. Performed By: #### C BC #### [facility] [address] [place] [address] Dr. Ashlie [facility] SEE [facility] Normal [facility] Comment on above: Result Comment: Nega tive for Flu B protein antigen. Infection due to Flu B cannot be ruled out. Flu B antigen in the sample may be below the detection limit of the test. Performed By: #### C BC #### [facility] [address] [place] [address] Dr. Ashlie Hills INFLUENZA A AG Negative Normal NEGATIVE SEE COMMENT [facility] Comment on above: Performed By: #### C BC #### [facility] [address] [place] [address] Dr. Ashlie Hills INFLUENZA B AG Negative Normal NEGATIVE SEE COMMENT [facility] Comment on above: Performed By: #### C BC #### [facility] [address] [place] [address] Dr. Ashlie Hills POINT OF CARE GLUCOSEon 04-08 Glucose [Mass/Vol] 108 mg/dL Critically high 74-106 [facility] Comment on above: Performed By: #### C BC #### [facility] [address] [place] [address] Dr. Ashlie Hills RAGHU by IFAon 03-07-2022 Antinuclear Antibodies, IFA Negative Normal [facility] Comment on above: Result Comment: Nega tive <1:80 Borderline 1:80 Positive >1:80 ICAP nomenclature: AC-0 For more information about Hep-2 cell patterns use ANApatterns.org, the official website for the International Consensus on Antinuclear Antibody (RAGHU) Patterns (ICAP). Performed By: #### A NAIFA #### [facility] [address] [place] [address] Dr. Ashlie Hills IMMUNOFIXATION (TREVON), URINEo n 03-07-2022 TREVON Interpretation:U Comment Normal [facility] Comment on above: Result Comment: No m onoclonality detected. Performed By: #### C BC #### [facility] [address] [place] [address] Dr. Ashlie Hills IMMUNOFIXATION(TREVON),PROTEIN ELEC(PE),FREon 03-07-2022 Albumin [Mass/Vol] 3.0 g/dL Normal 2.9-4.4 [facility] Comment on above: Performed By: #### I NFLUAB #### [facility] [address] [place] [address] Dr. Ashlie Hills Albumin/Globulin [Mass ratio] 0.8 {ratio} Normal 0.7-1.7 [facility] Comment on above: Performed By: #### I NFLUAB #### [facility] [address] [address] [address] Ashlie Hills Kizzb-6-Frssgqlr 0.3 g/dL Normal 0.0-0.4 [facility] Comment on above: Performed By: #### I NFLUAB #### [facility] [address] [address] [address] Ashlie Hills Smvyq-6-Xpelojln 1.0 g/dL Normal 0.4-1.0 [facility] Comment on above: Performed By: #### I NFLUAB #### [facility] [address] [address] [address] Ashlie Hills Beta Globulin 1.8 g/dL Critically high 0.7-1.3 [facility] Comment on above: Performed By: #### I NFLUAB #### [facility] [address] [place] [address] Dr. Ashlie Hills Free Goldonna Lt Chains,S 45.2 mg/L Critically high 3.3-19.4 [facility] Comment on above: Performed By: #### I NFLUAB #### [facility] [address] [address] [address] Ashlie Hills Free Lambda Lt Chains,S 40.3 mg/L Critically high 5.7-26. 3 [facility] Comment on above: Performed By: #### I NFLUAB #### [facility] [address] [place] [address] Dr. Ashlie Hills Gamma Globulin 0.8 g/dL Normal 0.4-1.8 [facility] Comment on above: Performed By: #### I NFLUAB #### [facility] [address] [address] [address] Ashlie Hills Globulin (S) [Mass/Vol] 3.9 g/dL Normal 2.2-3.9 [facility] Comment on above: Performed By: #### I NFLUAB #### [facility] [address] [address] [address] Ashlie Hills Immunofixation Result, Serum Comment Normal [facility] Comment on above: Result Comment: No m onoclonality detected. Performed By: #### I NFLUAB #### [facility] [address] [address] [address] Ashlie Hills Immunoglobulin A, Qn, Serum 776 mg/dL Critically high 87-352 [facility] Comment on above: Performed By: #### I NFLUAB #### [facility] [address] [address] [address] Ashlie Hills Immunoglobulin G, Qn, Serum 955 mg/dL Normal 586-1602 [facility] Comment on above: Performed By: #### I NFLUAB #### [facility] [address] [place] [address] Dr. Ashlie Hills Immunoglobulin M, Qn, Serum 39 mg/dL Normal 26-217 [facility] Comment on above: Performed By: #### I NFLUAB #### [facility] [address] [place] [address] Dr. Ashlie Hills Goldonna/Lambda Ratio, S 1.12 Normal 0.26-1.65 [facility] Comment on above: Performed By: #### I NFLUAB #### [facility] [address] [place] [address] Dr. Ashlie Hills M-Bright Not Observed Normal Not Observed [facility] Comment on above: Performed By: #### I NFLUAB #### [facility] [address] [place] [address] Dr. Ashlie Hills PDF . Normal [facility] Comment on above: Performed By: #### I NFLUAB #### [facility] [address] [place] [address] Dr. Ashlie Hills Please note: Comment Normal [facility] Comment on above: Result Comment: Prot ein electrophoresis scan will follow via computer, mail, or supply chain planner delivery. Performed By: #### I NFLUAB #### [facility] [address] [place] [address] Dr. Ashlie Hills Protein [Mass/Vol] 6.9 g/dL Normal 6.0-8.5 [facility] Comment on above: Performed By: #### I NFLUAB #### [facility] [address] [address] [address] Ashlie Hills C-PEPTIDE, SERUMon 2 C-Peptide, Serum 3.1 ng/mL Normal 1.1-4.4 [facility] Comment on above: Result Comment: C-Pe ptide reference interval is for fasting patients. Performed By: #### C PEPT #### [facility] [address] [address] [address] Ashlie Hills HEP B SURFACE ANTIGEN SCREEN on 03-04-2022 HBsAg Screen Negative Normal Negative [facility] Comment on above: Performed By: #### C BC #### [facility] [address] [address] [address] Ashlie Hills HEPATITIS C VIRUS AB W/ REFL EX QUANTon 03-04-2022 HCV AB <0.1 Normal 0.0-0.9 [facility] Comment on above: Performed By: #### I NFLUAB #### [facility] [address] [address] [address] Ashlie Hills Interpretation: Comment Normal [facility] Comment on above: Result Comment: Nega tive Not infected with HCV, unless recent infection is suspected or other evidence exists to indicate HCV infection. Performed By: #### I NFLUAB #### [facility] [address] [address] [address] Ashlie Hills MICROALBUMIN/ CREATININE RAT IOon 03-04-2022 Albumin, Urine 367.4 ug/mL Normal Not Estab. The [facility] Comment on above: Performed By: #### C BC #### [facility] [address] [address] [address] Ashlie Hills Albumin/ Creatinine Ratio 239 mg/g creat Critically high 0-29 [facility] Comment on above: Result Comment: Norm al: 0 - 29 Moderately increased: 30 - 300 Severely increased: >300 Performed By: #### C BC #### [facility] [address] [address] [address] Ashlie Hills Creatinine, Urine 153.9 mg/dL Normal Not Estab. [facility] Comment on above: Performed By: #### C BC #### [facility] [address] [address] [address] Ashlie Hills VIT D 25-OH LABCORPon 2021 Vitamin D, 25-Hydroxy <4.0 Critically low 30.0-100.0 [facility] Comment on above: Result Comment: Graciela min D deficiency has been defined by the [place] of [employer] and an Endocrine Society practice guideline as a level of serum 25-OH vitamin D less than 20 ng/mL (1,2). The Endocrine Society went on to further define vitamin D insufficiency as a level between 21 and 29 ng/mL (2). 1. IOM ([place] of [employer]). 2010. Dietary reference intakes for calcium and D. [place]: The National Academies Press. 2. Lynda STAHL, Keely OLIVEROS, Leandra LOPEZ, et al. Evaluation, treatment, and prevention of vitamin D deficiency: an Endocrine Society clinical practice guideline. JCEM. 2010; 96(7):1911-30. Performed By: #### C BC #### [facility] [address] [address] [address] Ashlie Hills GLYCOHEMOGLOBIN A1Con 2021 ADA RECOMMENDATION SEE BELOW Normal [facility] Comment on above: Result Comment: ADA RECOMMENDED LIMIT 4.0 - 6.0 ADA THERAPEUTIC TARGET < 7.0 ACTION SUGGESTED > 7.0 Performed By: #### C VDAGS #### [facility] [address] [address] [address] Ashlie Hills Glucose [Mass/Vol] 295 mg/dL Normal [facility] Comment on above: Performed By: #### C VDAGS #### [facility] [address] [address] [address] Ashlie Hills HbA1c (Bld) [Mass fraction] 11.9 % Critically high 4.5-6.2 [facility] Comment on above: Performed By: #### C VDAGS #### [facility] [address] [address] [address] Ashlie Hills HEMOGRAM AND PLATELon 2021 Hematocrit (Bld) [Volume fraction] 56.3 % Critically high 36.0-48.0 [facility] Comment on above: Performed By: #### C VDAGS #### [facility] [address] [place] [address] Dr. Ashlie Hills Hemoglobin (Bld) [Mass/Vol] 18.0 g/dL Critically high 12.0-16.0 [facility] Comment on above: Performed By: #### C VDAGS #### [facility] [address] [place] [address] Dr. Ashlie Hills MCH (RBC) [Entitic mass] 29.5 pg Normal 26.7-34.0 [facility] Comment on above: Performed By: #### C VDAGS #### [facility] [address] [place] [address] Dr. Ashlie Hills MCHC (RBC) [Mass/Vol] 32.0 g/dL Normal 29.9-35.2 [facility] Comment on above: Performed By: #### C VDAGS #### [facility] [address] [place] [address] Dr. Ashlie Hills MCV (RBC) [Entitic vol] 92.1 fL Normal 81.0-99.0 [facility] Comment on above: Performed By: #### C VDAGS #### [facility] [address] [place] [address] Dr. Ashlie Hills PLT 123 103/ul Critically low 150-450 [facility] Comment on above: Performed By: #### C VDAGS #### [facility] [address] [place] [address] Dr. Ashlie Hills RBC 6.11 106/ul Critically high 4.20-5.40 [facility] Comment on above: Performed By: #### C VDAGS #### [facility] [address] [place] [address] Dr. Ashlie Hills WBC 16.4 103/ul Critically high 4.0-11.0 [facility] Comment on above: Performed By: #### C VDAGS #### [facility] [address] [place] [address] Dr. Ashlie Hills LIPID PROFILEon 03-03-2022 CHOL-HDL RATIO NORM SEE BELOW Normal [facility] Comment on above: Result Comment: 3.3 - 4.4 LOW RISK 4.4 - 7.1 AVERAGE RISK 7.1 - 11.0 MODERATE RISK >11.0 HIGH RISK Performed By: #### C VDAGS #### [facility] [address] [address] [address] Ashlie Hills Cholesterol [Mass/Vol] 159 mg/dL Normal <=200 [facility] Comment on above: Performed By: #### C VDAGS #### [facility] [address] [address] [address] Ashlie Hills Cholesterol in HDL [Mass/Vol] 40 mg/dL Normal 40-60 [facility] Comment on above: Performed By: #### C VDAGS #### [facility] [address] [address] [address] Ashlie Hills Cholesterol in LDL [Mass/Vol] 81.8 mg/dL Normal [facility] Comment on above: Performed By: #### C VDAGS #### [facility] [address] [address] [address] Ashlie Hills Cholesterol.total/Choles terol in HDL [Mass ratio] 4.0 {ratio} Normal [facility] Comment on above: Performed By: #### C VDAGS #### [facility] [address] [address] [address] Ashlie Hills HDL NORMAL > or = 60 mg/dl - LOW CARDIOVASCULAR RISK <40 mg/dl - HIGH CARDIOVASCULAR RISK Normal [facility] Comment on above: Performed By: #### C VDAGS #### [facility] [address] [id number] Ashlie Hills LDL CALC NORMAL SEE BELOW Normal [facility] Comment on above: Result Comment: <100 mg/dl OPTIMAL 100 - 129 mg/dl NEAR OR ABOVE OPTIMAL 130 - 159 mg/dl BORDERLINE HIGH 160 - 189 mg/dl HIGH >190 mg/dl VERY HIGH Performed By: #### C VDAGS #### [facility] [address] [address] [address] Ashlie Hills Triglyceride [Mass/Vol] 186 mg/dL Critically high <=150 [facility] Comment on above: Performed By: #### C VDAGS #### [facility] [address] [address] [address] Ashlie Hills VLDL CALC 37.2 mg/dL Normal [facility] Comment on above: Performed By: #### C VDAGS #### [facility] [address] [address] [address] Ashlie Hills RENAL FUNCTION PANELon 03-03 Albumin [Mass/Vol] 3.1 g/dL Critically low 3.4-5.0 Th [facility] Comment on above: Performed By: #### C BC #### [facility] [address] [place] [address] Dr. Ashlie Hills Calcium [Mass/Vol] 9.2 mg/dL Normal 8.5-10.1 [facility] Comment on above: Performed By: #### C BC #### [facility] [address] [place] [address] Dr. Ashlie Hills Chloride [Moles/Vol] 102 mmol/L Normal 98-107 [facility] Comment on above: Performed By: #### C BC #### [facility] [address] [place] [address] Dr. Ashlie Hills CO2 [Moles/Vol] 31.9 mmol/L Normal 21.0-32.0 [facility] Comment on above: Performed By: #### C BC #### [facility] [address] [place] [address] Dr. Ashlie Hills Creatinine [Mass/Vol] 0.68 mg/dL Normal 0.55-1.02 [facility] Comment on above: Performed By: #### C BC #### [facility] [address] [place] [address] Dr. Ashlie Hills EGFR-AF CITIZEN [place] >60 Normal >=60 [facility] Comment on above: Performed By: #### C BC #### [facility] [address] [address] [address] Ashlie Hills EGFR-NON AF CITIZEN OF [place] >60 Normal >=60 [facility] Comment on above: Performed By: #### C BC #### [facility] [address] [address] [address] Ashlie Hills Glucose [Mass/Vol] 131 mg/dL Critically high 74-106 T [facility] Comment on above: Performed By: #### C BC #### [facility] [address] [address] [address] Ashlie Hills Phosphate [Mass/Vol] 4.0 mg/dL Normal 2.6-4.7 [facility] Comment on above: Performed By: #### C BC #### [facility] [address] [place] [address] Dr. Ashlie Hills Potassium [Moles/Vol] 4.0 mmol/L Normal 3.5-5.1 [facility] Comment on above: Performed By: #### C BC #### [facility] [address] [place] [address] Dr. Ashlie Hills Sodium [Moles/Vol] 141 mmol/L Normal 136-145 [facility] Comment on above: Performed By: #### C BC #### [facility] [address] [place] [address] Dr. Ashlie Hills Urea nitrogen [Mass/Vol] 17.0 mg/dL Normal 7.0-18.0 [facility] Comment on above: Performed By: #### C BC #### [facility] [address] [place] [address] Dr. Ashlie Hills UA RANDOM W/MICROSCOPICon BACTERIA NONE SEEN Normal NONE SEEN [facility] Comment on above: Performed By: #### I NFLUAB #### [facility] [address] [place] [address] Dr. Ashlie Hills Bilirubin Ql (U) Negative Normal NEGATIVE [facility] Comment on above: Performed By: #### I NFLUAB #### [facility] [address] [place] [address] Dr. Ashlie Hills CAST NONE SEEN Normal NONE SEEN [facility] Comment on above: Performed By: #### I NFLUAB #### [facility] [address] [address] [address] Ashlie Hills Clarity (U) CLEAR Normal CLEAR [facility] Comment on above: Performed By: #### I NFLUAB #### [facility] [address] [place] [address] Dr. Ashlie Hills Color (U) YELLOW Normal YELLOW [facility] Comment on above: Performed By: #### I NFLUAB #### [facility] [address] [place] [address] Dr. Ashlie Hills Crystals LM Nom (Urine sed) NONE SEEN Normal NONE SEEN [facility] Comment on above: Performed By: #### I NFLUAB #### [facility] [address] [place] [address] Dr. Ashlie Hills Epithelial cells LM Ql (Urine sed) FEW Abnormal NONE SEEN /RARE [facility] Comment on above: Performed By: #### I NFLUAB #### [facility] [address] [place] [address] Dr. Ashlie Hills Glucose Ql (U) Negative Normal NEGATIVE [facility] Comment on above: Performed By: #### I NFLUAB #### [facility] [address] [place] [address] Dr. Ashlie Hills Hemoglobin Ql (U) Negative Normal NEGATIVE The [facility] Comment on above: Performed By: #### I NFLUAB #### [facility] [address] [place] [address] Dr. Ashlie Hills Ketones Ql (U) Negative Normal NEGATIVE [facility] Comment on above: Performed By: #### I NFLUAB #### [facility] [address] [place] [address] Dr. Ashlie Hills LEUKOCYTES Negative Normal NEGATIVE The [facility] Comment on above: Performed By: #### I NFLUAB #### [facility] [address] [place] [address] Dr. Ashlie Hills MUCOUS NONE SEEN Normal NONE SEEN The [facility] Comment on above: Performed By: #### I NFLUAB #### [facility] [address] [place] [address] Dr. Ashlie Hills Nitrite Ql (U) Negative Normal NEGATIVE [facility] Comment on above: Performed By: #### I NFLUAB #### [facility] [address] [place] [address] Dr. Ashlie Hills pH (U) 5.5 [pH] Normal 5-9 [facility] Comment on above: Performed By: #### I NFLUAB #### [facility] [address] [place] [address] Dr. Ashlie Hills RBC 0-2 Normal 0-2 [facility] Comment on above: Performed By: #### I NFLUAB #### [facility] [address] [place] [address] Dr. Ashlie Hills SPEC GRAVITY >=1.030 Abnormal 1.005-<=1.02 5 [facility] Comment on above: Performed By: #### I NFLUAB #### [facility] [address] [place] [address] Dr. Ashlie Hills UA PROTEIN 100 mg/dl Abnormal NEGATIVE/ TRACE The [facility] Comment on above: Performed By: #### I NFLUAB #### [facility] [address] [place] [address] Dr. Ashlie Hills Urobilinogen Qn (U) 0.2 {Little'U}/dL Normal 0.2 - 1. 0 [facility] Comment on above: Performed By: #### I NFLUAB #### [facility] [address] [place] [address] Dr. Ashlie Hills WBC NONE SEEN Normal NONE SEEN The [facility] Comment on above: Performed By: #### I NFLUAB #### [facility] [address] [place] [address] Dr. Ashlie Hills URIC ACID SERUMon 03-03-2022 Urate [Mass/Vol] 5.0 mg/dL Normal 2.6-6.0 [facility] Comment on above: Performed By: #### I NFLUAB #### [facility] [address] [place] [address] Dr. Ashlie Hills URINE T PROTEIN CREAT RATIOo n 03-03-2022 Protein (U) [Mass/Vol] 77.9 mg/dL Critically high <=12.0 [facility] Comment on above: Performed By: #### C VDAGS #### [facility] [address] [place] [address] Dr. Ashlie Hills UR PROT CREAT RAT 0.44 Normal [facility] Comment on above: Performed By: #### C VDAGS #### [facility] [address] [place] [address] Dr. Ashlie Hills URINE CREAT 175.15 mg/dL Normal 20.00-300.00 The [facility] Comment on above: Performed By: #### C VDAGS #### [facility] [address] [place] [address] Dr. Ashlie Hills CULTURE URINEon 12-25-2021 CULTURE URINE Culture Observations: GREATER THAN TWO ORGANISMS PRESENT, HEAVILY MIXED. PLEASE RESUBMIT CLEAN CATCH MID-STREAM URINE IF CLINICALLY INDICATED. Normal [facility] Comment on above: Performed By: #### I NFLUAB #### [facility] [address] [place] [address] Dr. Ashlie Hills CBC AUTO DIFFon 12-24-2021 BASO # 0.1 103/ul Normal 0.0-0.1 [facility] Comment on above: Performed By: #### C BC #### [facility] [address] [place] [address] Dr. Ashlie Hills Basophils/100 WBC (Bld) 0.5 % Normal 0.2-2.0 [facility] Comment on above: Performed By: #### C BC #### [facility] [address] [place] [address] Dr. Ashlie Hills EO # 0.4 103/ul Normal 0.0-0.7 [facility] Comment on above: Performed By: #### C BC #### [facility] [address] [place] [address] Dr. Ashlie Hills Eosinophils/100 WBC (Bld) 2.4 % Normal 0.9-7.0 [facility] Comment on above: Performed By: #### C BC #### [facility] [address] [place] [address] Dr. Ashlie Hills Erythrocyte distribution width (RBC) [Ratio] 14.1 % Normal 11.0-15.0 [facility] Comment on above: Performed By: #### C BC #### [facility] [address] [place] [address] Dr. Ashlie Hills Hematocrit (Bld) [Volume fraction] 55.9 % Critically high 36.0-48.0 [facility] Comment on above: Performed By: #### C BC #### [facility] [address] [place] [address] Dr. Ashlie Hills Hemoglobin (Bld) [Mass/Vol] 17.9 g/dL Critically high 12.0-16.0 [facility] Comment on above: Performed By: #### C BC #### [facility] [address] [place] [address] Dr. Ashlie Hills IG # 0.06 10e3/ul Critically high 0.00-0.03 [facility] Comment on above: Performed By: #### C BC #### [facility] [address] [place] [address] Dr. Ashlie Hills IG % 0.4 % Normal 0.0-0.5 [facility] Comment on above: Performed By: #### C BC #### [facility] [address] [place] [address] Dr. Ashlie Hills LYMPH # 5.8 103/ul Critically high 1.2-3.8 [facility] Comment on above: Performed By: #### C BC #### [facility] [address] [place] [address] Dr. Ashlie Hills Lymphocytes/100 WBC (Bld) 35.4 % Normal 20.5-60.0 [facility] Comment on above: Performed By: #### C BC #### [facility] [address] [place] [address] Dr. Ashlie Hills MANUAL DIFF REQ NO Normal [facility] Comment on above: Performed By: #### C BC #### [facility] [address] [address] [address] Ashlie Hills MCH (RBC) [Entitic mass] 29.4 pg Normal 26.7-34.0 [facility] Comment on above: Performed By: #### C BC #### [facility] [address] [place] [address] Dr. Ashlie Hills MCHC (RBC) [Mass/Vol] 32.0 g/dL Normal 29.9-35.2 [facility] Comment on above: Performed By: #### C BC #### [facility] [address] [place] [address] Dr. Ashlie Hills MCV (RBC) [Entitic vol] 91.8 fL Normal 81.0-99.0 [facility] Comment on above: Performed By: #### C BC #### [facility] [address] [place] [address] Dr. Ashlie Hills MONO # 0.8 103/ul Normal 0.3-0.8 [facility] Comment on above: Performed By: #### C BC #### [facility] [address] [place] [address] Dr. Ashlie Hills Monocytes/100 WBC (Bld) 4.8 % Normal 1.7-12.0 [facility] Comment on above: Performed By: #### C BC #### [facility] [address] [place] [address] Dr. Ashlie Hills NEUT # 9.3 103/ul Critically high 1.4-6.5 [facility] Comment on above: Performed By: #### C BC #### [facility] [address] [place] [address] Dr. Ashlie Hills Neutrophils/100 WBC (Bld) 56.5 % Normal 43.0-75.0 [facility] Comment on above: Performed By: #### C BC #### [facility] [address] [place] [address] Dr. Ashlie Hills Platelet mean volume (Bld) [Entitic vol] 12.9 fL Normal 9.5-13.5 [facility] Comment on above: Performed By: #### C BC #### [facility] [address] [place], [place] [address] Dr. Ashlie Hills PLT 127 103/ul Critically low 150-450 [facility] Comment on above: Performed By: #### C BC #### [facility] [address] [place], [place] [address] Dr. Ashlie Hills RBC 6.09 106/ul Critically high 4.20-5.40 [facility] Comment on above: Performed By: #### C BC #### [facility] [address] [place], [place] [address] Dr. Ashlie Hills WBC 16.4 103/ul Critically high 4.0-11.0 [facility] Comment on above: Performed By: #### C BC #### [facility] [address] [place], [place] [address] ABD/PELVIS WO CONon [...] Severe right hip degenerative change. Normal [facility] ER URINE PROFILEon 2 Bilirubin Ql (U) Negative Normal NEGATIVE [facility] Comment on above: Performed By: #### EVONNE DIAZ #### [facility] [address] [place] [address] Dr. Ashlie Hills Clarity (U) CLEAR Normal CLEAR [facility] Comment on above: Performed By: #### E NURA UMICRO #### [facility] [address] [address] [address] Ashlie Hills Color (U) DK. ORANGE Abnormal YELLOW [facility] Comment on above: Performed By: #### E NURA HARRIETRO #### [facility] [address] [address] [address] Ashlie Hills ERUAHD A micrscopic examination will be performed if indicated. Normal [facility] Comment on above: Performed By: #### MADELINE DIAZRO #### [facility] [address] [address] [address] Ashlie Hills Glucose Ql (U) 250 mg/dl Abnormal NEGATIVE [facility] Comment on above: Performed By: #### MADELINE DIAZRO #### [facility] [address] [address] [address] Ashlie Hills Hemoglobin Ql (U) Negative Normal NEGATIVE [facility] Comment on above: Performed By: #### MADELINE DIAZRO #### [facility] [address] [place] [address] Dr. Ashlie Hills Ketones Ql (U) Negative Normal NEGATIVE [facility] Comment on above: Performed By: #### MADELINE DIAZRO #### [facility] [address] [place] [address] Dr. Ashlie Hills LEUKOCYTES Negative Normal NEGATIVE [facility] Comment on above: Performed By: #### MADELINE DIAZRO #### [facility] [address] [place] [address] Dr. Ashlie Hills Nitrite Ql (U) Negative Normal NEGATIVE [facility] Comment on above: Performed By: #### MADELINE DIAZRO #### [facility] [address] [place] [address] Dr. Ashlie Hills pH (U) 5.0 [pH] Normal 5-9 [facility] Comment on above: Performed By: #### MADELINE DIAZRO #### [facility] [address] [place] [address] Dr. Ashlie Hills Protein (U) [Mass/Vol] 100 mg/dL Abnormal NEGAT YURY/ TRACE [facility] Comment on above: Performed By: #### MADELINE DIAZRO #### [facility] [address] [place] [address] Dr. Ashlie Hills SPEC GRAVITY >=1.030 Abnormal 1.005-<=1.02 5 [facility] Comment on above: Performed By: #### MADELINE DIAZRO #### [facility] [address] [place] [address] Dr. Ashlie Hills UR MICRO IND INDICATED Normal [facility] Comment on above: Performed By: #### EVONNE DIAZ #### [facility] [address] [place] [address] Dr. Ashlie Hills Urobilinogen Qn (U) 1.0 {Little'U}/dL Normal 0.2 - 1. 0 [facility] Comment on above: Performed By: #### EVONNE DIAZ #### [facility] [address] [place] [address] Dr. Ashlie Hills PROF CHEM 8 (BAS METB)on Anion gap [Moles/Vol] 12.1 mmol/L Normal [facility] Comment on above: Performed By: #### I NFLUAB #### [facility] [address] [place] [address] Dr. Ashlie Hills Calcium [Mass/Vol] 9.0 mg/dL Normal 8.5-10.1 [facility] Comment on above: Performed By: #### I NFLUAB #### [facility] [address] [place] [address] Dr. Ashlie Hills Chloride [Moles/Vol] 101 mmol/L Normal 98-107 [facility] Comment on above: Performed By: #### I NFLUAB #### [facility] [address] [place] [address] Dr. Ashlie Hills CO2 [Moles/Vol] 29.1 mmol/L Normal 21.0-32.0 [facility] Comment on above: Performed By: #### I NFLUAB #### [facility] [address] [place] [address] Dr. Ashlie Hills Creatinine [Mass/Vol] 0.86 mg/dL Normal 0.55-1.02 [facility] Comment on above: Performed By: #### I NFLUAB #### [facility] [address] [place] [address] Dr. Ashlie Hills EGFR-AF CITIZEN OF [place] >60 Normal >=60 [facility] Comment on above: Performed By: #### I NFLUAB #### [facility] [address] [address] [address] Ashlie Hills EGFR-NON AF CITIZEN OF [place] >60 Normal >=60 [facility] Comment on above: Performed By: #### I NFLUAB #### [facility] [address] [address] [address] Ashlie Hills Glucose [Mass/Vol] 236 mg/dL Critically high 74-106 [facility] Comment on above: Performed By: #### I NFLUAB #### [facility] [address] [address] [address] Ashlie Hills Potassium [Moles/Vol] 4.2 mmol/L Normal 3.5-5.1 [facility] Comment on above: Performed By: #### I NFLUAB #### [facility] [address] [place] [address] Dr. Ashlie Hills Sodium [Moles/Vol] 138 mmol/L Normal 136-145 [facility] Comment on above: Performed By: #### I NFLUAB #### [facility] [address] [place] [address] Dr. Ashlie Hills Urea nitrogen [Mass/Vol] 11.0 mg/dL Normal 7.0-18.0 [facility] Comment on above: Performed By: #### I NFLUAB #### [facility] [address] [address] [address] Ashlie Hills Urea nitrogen/Creatinine [Mass ratio] 12.8 mg/mg Normal [facility] Comment on above: Performed By: #### I NFLUAB #### [facility] [address] [place] [address] Dr. Ashlie Hills URINE MICROSCOPIC ONLYon BACTERIA SMALL Abnormal NONE SEEN [facility] Comment on above: Performed By: #### EVONNE DIAZ #### [facility] [address] [address] [address] Ashlie Hills Bacteria identified Cx Nom (U) INDICATED Normal [facility] Comment on above: Performed By: #### EVONNE DIAZ #### [facility] [address] [place] [address] Dr. Ashlie Hills CAST NONE SEEN Normal NONE SEEN [facility] Comment on above: Performed By: #### Tracey LYMAN UMICRO #### [facility] [address] [place] [address] Dr. Ashlie Hills Crystals LM Nom (Urine sed) NONE SEEN Normal NONE SEEN [facility] Comment on above: Performed By: #### Tracey LYMAN UMICRO #### [facility] [address] [place] [address] Dr. Ashlie Hills Epithelial cells LM Ql (Urine sed) MODERATE Abnormal NONE SEEN /RARE [facility] Comment on above: Performed By: #### Tracey LYMAN UMICRO #### [facility] [address] [place] [address] Dr. Ashlie Hills MUCOUS NONE SEEN Normal NONE SEEN [facility] Comment on above: Performed By: #### Tracey LYMAN UMICRO #### [facility] [address] [place] [address] Dr. Ashlie Hills RBC 0-2 Normal 0-2 [facility] Comment on above: Performed By: #### Tracey LYMAN UMICRO #### [facility] [address] [place] [address] Dr. Ashlie Hills WBC 0-2 Abnormal NONE SEEN [facility] Comment on above: Performed By: #### Tracey LYMAN UMICRO #### [facility] [address] [place] [address] Dr. Ashlie Hills YEAST PRESENT Abnormal NONE SEEN [facility] Comment on above: Performed By: #### Tracey LYMAN UMICRO #### [facility] [address] [place] [address] Dr. Ashlie Hills HIP RIGHT 1 OR 2 VWS WITH PE LVISon 07-20-2020 HIP RIGHT 1 OR 2 VWS WITH PELVIS [facility] Department of Radiology [address] [place] [address] Patient Name: MITZI MACIAS : [...] MRI. Electronically signed: Pipo Acevedo. Transcribed by: [email or web address], User Resident: Electronically Signed by: PIPO ACEVEDO @ 07/20/2020 03:45 PM Normal [facility] Comment on above: Order Comment: evalu ate Vital Signs Date Time Vital Sign Value Performing Clinician Facility 04-06-2025 15:37-0400 Body temperature 98.1 [degF] Mckayla Blas NP-C Work Phone: 04-06-2025 15:37-0400 Diastolic blood pressure 84 mm[Hg] Mckayla Blas NP-C Work Phone: 04-06-2025 15:37-0400 Heart rate 81 /min Mckaylajuvenal Rosenbergz CANDY DECORATOR-C Work Phone: 04-06-2025 15:37-0400 Respiratory rate 20 /min Mckayla Harshadholz CANDY DECORATOR-C Work Phone: 04-06-2025 15:37-0400 SaO2% (BldA) [Mass fraction] 92 % Mckayla Harshadholz CANDY DECORATOR-C Work Phone: 04-06-2025 15:37-0400 Systolic blood pressure 146 mm[Hg] Mckayla Harshadholz CANDY DECORATOR-C Work Phone: 01-29-2025 09:48-0400 Body height 170.2 cm Rain Souza MD Work Phone: [facility] 01-29-2025 09:48-0400 Body mass index (BMI) [Ratio] 56.38 kg/m2 Rain Souza MD Work Phone: [facility] 01-29-2025 09:48-0400 Body weight 163.29 kg Rain Souza MD Work Phone: [facility] 01-29-2025 09:48-0400 Diastolic blood pressure 70 mm[Hg] Rain Souza MD Work Phone: [facility] 01-29-2025 09:48-0400 Heart rate 72 /min Rain Souza MD Work Phone: [facility] 01-29-2025 09:48-0400 Respiratory rate 16 /min Rain Souza MD Work Phone: [facility] 01-29-2025 09:48-0400 SaO2% (BldA) [Mass fraction] 84 % Rain Souza MD Work Phone: [facility] 01-29-2025 09:48-0400 Systolic blood pressure 130 mm[Hg] Rain Souza MD Work Phone: [facility] 01-26-2025 18:11-0400 Body mass index (BMI) [Ratio] 58.64 kg/m2 Mckayla Aichholz CANDY DECORATOR Work Phone: [facility] 01-26-2025 18:11-0400 Body temperature 98.49 [degF] Mckayla Aichholz CANDY DECORATOR Work Phone: [facility] 01-26-2025 18:11-0400 Body weight 169.83 kg Cmkayla Aichholz CANDY DECORATOR Work Phone: [facility] 01-26-2025 18:11-0400 Diastolic blood pressure 82 mm[Hg] Mckayla Aichholz CANDY DECORATOR Work Phone: [facility] 01-26-2025 18:11-0400 Heart rate 81 /min Mckayla Aichholz CANDY DECORATOR Work Phone: [facility] 01-26-2025 18:11-0400 Respiratory rate 20 /min Mckayla Aichholz CANDY DECORATOR Work Phone: [facility] 01-26-2025 18:11-0400 SaO2% (BldA) [Mass fraction] 90 % Mckayla Aichholz CANDY DECORATOR Work Phone: [facility] 01-26-2025 18:11-0400 Systolic blood pressure 126 mm[Hg] Mckayla Aichholz CANDY DECORATOR Work Phone: [facility] 12-09-2024 10:19-0400 Body temperature 98.01 [degF] Mckayla Aichholz CANDY DECORATOR Work Phone: [facility] 12-09-2024 10:19-0400 Diastolic blood pressure 76 mm[Hg] Mckayla Aichholz CANDY DECORATOR Work Phone: [facility] 12-09-2024 10:19-0400 Heart rate 71 /min Mckayla Aichholz CANDY DECORATOR Work Phone: [facility] 12-09-2024 10:19-0400 Respiratory rate 20 /min Mckayla Aichholz CANDY DECORATOR Work Phone: [facility] 12-09-2024 10:19-0400 SaO2% (BldA) [Mass fraction] 88 % Mckayla Rosenbergz CANDY DECORATOR Work Phone: [facility] 12-09-2024 10:19-0400 Systolic blood pressure 150 mm[Hg] Mckaylajuvenal Rosenbergz CANDY DECORATOR Work Phone: [facility] 10-27-2024 14:11-0400 Body height 170.2 cm Mckayla Chetz CANDY DECORATOR Work Phone: [facility] 10-27-2024 14:11-0400 Body mass index (BMI) [Ratio] 56.51 kg/m2 Mckaylajuvenal Rosenbergz CANDY DECORATOR Work Phone: [facility] 10-27-2024 14:11-0400 Body temperature 98.71 [degF] Mckayla Rosenbergz CANDY DECORATOR Work Phone: [facility] 10-27-2024 14:11-0400 Body weight 163.66 kg Mckaylajuvenal Rosenbergz CANDY DECORATOR Work Phone: [facility] 10-27-2024 14:11-0400 Diastolic blood pressure 74 mm[Hg] Mckayla Rosenbergz CANDY DECORATOR Work Phone: [facility] 10-27-2024 14:11-0400 Heart rate 75 /min Mckayla Harshadholz CANDY DECORATOR Work Phone: [facility] 10-27-2024 14:11-0400 Respiratory rate 18 /min Mckayla Harshadholz CANDY DECORATOR Work Phone: [facility] 10-27-2024 14:11-0400 SaO2% (BldA) [Mass fraction] 90 % Mckayla Harshadholz CANDY DECORATOR Work Phone: [facility] 10-27-2024 14:11-0400 Systolic blood pressure 132 mm[Hg] Mckayla Harshadholz CANDY DECORATOR Work Phone: [facility] 10-08-2024 11:21-0400 Body height 170.2 cm Rain Souza MD Work Phone: [facility] 10-08-2024 11:21-0400 Body mass index (BMI) [Ratio] 55.91 kg/m2 Rain Souza MD Work Phone: [facility] 10-08-2024 11:21-0400 Body weight 161.93 kg Rain Souza MD Work Phone: [facility] 10-08-2024 11:21-0400 Diastolic blood pressure 70 mm[Hg] Rain Souza MD Work Phone: [facility] 10-08-2024 11:21-0400 Heart rate 70 /min Rain Souza MD Work Phone: [facility] 10-08-2024 11:21-0400 Respiratory rate 16 /min Rain Souza MD Work Phone: [facility] 10-08-2024 11:21-0400 SaO2% (BldA) [Mass fraction] 91 % Rain Souza MD Work Phone: [facility] 10-08-2024 11:21-0400 Systolic blood pressure 130 mm[Hg] Rain Souza MD Work Phone: [facility] 08-27-2024 17:44-0500 Body mass index (BMI) [Ratio] 57.31 kg/m2 Mckayla Blas CANDY DECORATOR Work Phone: [facility] 08-27-2024 17:44-0500 Body temperature 98.01 [degF] Mckayla Blas CANDY DECORATOR Work Phone: [facility] 08-27-2024 17:44-0500 Body weight 165.97 kg Mckayla Blas CANDY DECORATOR Work Phone: [facility] 08-27-2024 17:44-0500 Diastolic blood pressure 76 mm[Hg] Mckayla Blas CANDY DECORATOR Work Phone: [facility] 08-27-2024 17:44-0500 Heart rate 83 /min Mckayla Patriciadallin CANDY DECORATOR Work Phone: [facility] 08-27-2024 17:44-0500 Respiratory rate 18 /min Mckayla Patriciadallin CANDY DECORATOR Work Phone: [facility] 08-27-2024 17:44-0500 SaO2% (BldA) [Mass fraction] 91 % Mckayla Patriciadallin CANDY DECORATOR Work Phone: [facility] 08-27-2024 17:44-0500 Systolic blood pressure 134 mm[Hg] Mckayla Patriciadallin CANDY DECORATOR Work Phone: [facility] 06-11-2024 10:00-0500 Blood Pressure Location Elbert ARAUZ [facility] 06-11-2024 10:00-0500 Diastolic blood pressure 68 mm[Hg] Elbert ARAUZ [facility] 06-11-2024 10:00-0500 Heart rate 76 /min Elbert ARAUZ [facility] 06-11-2024 10:00-0500 Systolic blood pressure 132 mm[Hg] Elbert ARAUZ [facility] 05-27-2024 10:20-0500 Body height 170.2 cm Rain Souza MD Work Phone: [facility] 05-27-2024 10:20-0500 Body mass index (BMI) [Ratio] 56.7 kg/m2 Rain Souza MD Work Phone: [facility] 05-27-2024 10:20-0500 Body weight 164.2 kg Rain Souza MD Work Phone: [facility] 05-27-2024 10:20-0500 Diastolic blood pressure 66 mm[Hg] Rain Souza MD Work Phone: [facility] 05-27-2024 10:20-0500 Heart rate 72 /min Rain Souza MD Work Phone: [facility] 05-27-2024 10:20-0500 Respiratory rate 16 /min Rain Souza MD Work Phone: [facility] 05-27-2024 10:20-0500 Systolic blood pressure 128 mm[Hg] Rain Souza MD Work Phone: [facility] 04-14-2024 10:27-0400 Body height 165.1 cm Mckayla Aichholz CANDY DECORATOR Work Phone: [facility] 04-14-2024 10:27-0400 Body mass index (BMI) [Ratio] 61.01 kg/m2 Mckayla Aichholz CANDY DECORATOR Work Phone: [facility] 04-14-2024 10:27-0400 Body temperature 98.49 [degF] Mckayla Aichholz CANDY DECORATOR Work Phone: [facility] 04-14-2024 10:27-0400 Body weight 166.29 kg Mckayla Aichholz CANDY DECORATOR Work Phone: [facility] 04-14-2024 10:27-0400 Diastolic blood pressure 80 mm[Hg] Mckayla Aichholz CANDY DECORATOR Work Phone: [facility] 04-14-2024 10:27-0400 Heart rate 77 /min Mckayla Aichholz CANDY DECORATOR Work Phone: [facility] 04-14-2024 10:27-0400 Respiratory rate 19 /min Mckayla Aichholz CANDY DECORATOR Work Phone: [facility] 04-14-2024 10:27-0400 SaO2% (BldA) [Mass fraction] 92 % Mckayla Aichholz CANDY DECORATOR Work Phone: [facility] 04-14-2024 10:27-0400 Systolic blood pressure 116 mm[Hg] Mckayla Aichholz CANDY DECORATOR Work Phone: [facility] 03-08-2022 15:00-0400 Body height 170.18 cm Stephanie Tico Other [employer] Other 03-08-2022 15:00-0400 Body temperature 97.6 [degF] Stephanie Tico Other [employer] Other 03-08-2022 15:00-0400 Diastolic blood pressure 72 mm[Hg] Stephanie Tico Other [employer] Other 03-08-2022 15:00-0400 Respiratory rate 20 /min Stephanie Tico Other [employer] Other 03-08-2022 15:00-0400 SaO2% (BldA) [Mass fraction] 91 % Stephanie Tico Other [employer] Other 03-08-2022 15:00-0400 Systolic blood pressure 131 mm[Hg] Stephanie Tico Other [employer] Other 02-20-2022 09:20-0400 Body height 170.18 cm Stephanie Tico Other [employer] Other 02-20-2022 09:20-0400 Body temperature 96.5 [degF] Stephanie Tico Other [employer] Other 02-20-2022 09:20-0400 Diastolic blood pressure 69 mm[Hg] Stephanie Tico Other [employer] Other 02-20-2022 09:20-0400 Respiratory rate 20 /min Stephanie Tico Other [employer] Other 02-20-2022 09:20-0400 SaO2% (BldA) [Mass fraction] 91 % Stephanie Tico Other [employer] Other 02-20-2022 09:20-0400 Systolic blood pressure 129 mm[Hg] Stephanie Tico Other [employer] Other 02-06-2022 10:24-0400 Blood Pressure Location Elbert ARAUZ [facility] 02-06-2022 10:24-0400 Diastolic blood pressure 76 mm[Hg] Elbert ARAUZ [facility] 02-06-2022 10:24-0400 Heart rate 70 /min Elbert ARAUZ [facility] 02-06-2022 10:24-0400 Respiratory rate 16 /min Elbert ARAUZ [facility] 02-06-2022 10:24-0400 Systolic blood pressure 134 mm[Hg] Elbert ARAUZ [facility] Encounters Encounter Date Encounter Type Care Provider Facility Start: 04-17-2025 ambulatory Omero jacobs INK GRINDER-SLIP COVER OPERATOR Facility:[facility] Start: 04-06-2025 End: 04-06-2025 ambulatory Mckayla Blas CANDY DECORATORLatasha Work Phone: [facility] Work Phone: Start: 04-06-2025 End: 04-06-2025 Patient encounter procedure Mckayla Blas CANDY DECORATOR-C -[facility] Work Phone: Start: 04-01-2025 Patient encounter procedure Mckayla Wan CANDY DECORATOR-C Work Phone: Start: 03-26-2025 Non-patient / Non-visit Flynn aguilar DPM -[facility] Work Phone: Start: 03-25-2025 Non-patient / Non-visit Price Ramsey DO -[facility] Work Phone: Start: 03-24-2025 ambulatory Corinne Kellogg MD Facility:[facility] Start: 03-23-2025 End: 03-23-2025 ambulatory Omero Rojas INK GRINDER-SLIP COVER OPERATOR Facility:[facility] Start: 03-11-2025 End: 03-11-2025 ambulatory Flynn Urias DPM Facility: [facility] Start: 03-09-2025 End: 03-09-2025 Refill Mckayla Wan CANDY DECORATOR Work Phone: [facility] Comment on above: Tobacco user; Encounter for smoking cessation counseling Start: 01-29-2025 End: 01-29-2025 Diana Souza MD Work Phone: [facility] Start: 01-29-2025 End: 01-29-2025 Diana Souza MD Work Phone: [facility] Start: 01-29-2025 End: 01-29-2025 Clinisync Result Encounter Generic External Data Provider [facility] External Department Unsolicited Start: 01-29-2025 End: 01-29-2025 ambulatory RAIN SOUZA Not Available Start: 01-29-2025 End: 01-29-2025 Office outpatient visit 25 minutes Rain Souza MD Work Phone: [facility] Comment on above: Encounter for dietar y consultation (Primary Dx); Type 2 diabetes mellitus with hyperglycemia, with long-term current use of insulin (HCC); Vitamin D deficiency; Primary hypertension ; Insulin long-term use (HCC); Hyperlipemia, mixed ; Microalbuminuria; Class 3 severe obesity due to excess calories with serious comorbidity and body mass index (BMI) of 50.0 to 59.9 in adult ([facility]-HCC) Start: 01-26-2025 End: 01-26-2025 ambulatory MCKAYLA BLAS Not Available Start: 01-26-2025 End: 01-26-2025 Patient encounter procedure Mckayla Blas CANDY DECORATOR Work Phone: [facility] Comment on above: Encounter for subseq [...] Morbid (severe) obesity due to excess calories ([facility]-HCC) Start: 01-06-2025 End: 01-06-2025 ambulatory AMI ORO [facility] Start: 12-18-2024 End: 12-19-2024 Refill Mckayla Blas CANDY DECORATOR Work Phone: [facility] Comment on above: Hyperlipidemia, unsp ecified ; Tobacco user; Encounter for smoking cessation counseling Start: 12-09-2024 End: 12-09-2024 Bamboo flowsheet Mckayla Blas CANDY DECORATOR Work Phone: [facility] Start: 12-09-2024 End: 12-09-2024 Bamboo flowsheet Mckayla Blas CANDY DECORATOR Work Phone: [facility] Start: 12-09-2024 End: 12-09-2024 ambulatory MCKAYLA AICHHOLZ Not Available Start: 12-09-2024 End: 12-09-2024 Office outpatient visit 25 minutes Mckayla Blas CANDY DECORATOR Work Phone: [facility] Comment on above: Cellulitis of left l ower extremity (Primary Dx); COPD exacerbation (CMS/HCC); Primary hypertension (CMS/HCC); Pulmonary hypertension (CMS/HCC); Morbid (severe) obesity due to excess calories (CMS/HCC); Type 2 diabetes mellitus with complication, with long-term current use of insulin (CMS/HCC); Anxiety and depression (CMS/HCC); Fever, unspecified fever cause Start: 12-04-2024 End: 12-07-2024 Clinisync Result Encounter Generic External Data Provider [facility] External Department Unsolicited Start: 12-04-2024 End: 12-07-2024 Clinisync Result Encounter Generic External Data Provider [facility] External Department Unsolicited Start: 10-27-2024 End: 10-27-2024 ambulatory MCKAYLA AICHHOLZ Not Available Start: 10-27-2024 End: 10-27-2024 Office outpatient visit 25 minutes Mckayla Blas CANDY DECORATOR Work Phone: [facility] Comment on above: Primary hypertension (CMS/HCC) (Primary [...] esophagitis present; Venous ulcer of right leg ([facility]/HCC) Start: 10-21-2024 End: 10-21-2024 Refill Mckayla Aichdallin SCHAEFER Work Phone: [facility] Comment on above: Chronic obstructive pulmonary disease, unspecified Start: 10-08-2024 End: 10-08-2024 Clinisync Result Encounter Mckayla Patriciadallin SCHAEFER Work Phone: [facility] External Department Unsolicited Start: 10-08-2024 End: 10-08-2024 Clinisync Result Encounter Mckayla Patriciadallin SCHAEFER Work Phone: [facility] External Department Unsolicited Start: 10-08-2024 End: [...] 08-27-2024 Office outpatient visit 25 minutes Mckayla Wan SCHAEFER Work Phone: [facility] Comment on above: Anxiety [...] of insulin (CMS/HCC); Tobacco user; Mixed hyperlipidemia ([facility]); Gout, unspecified cause, unspecified chronicity, unspecified site; Vitamin deficiency; Gastro-esophageal reflux disease without esophagitis; Edema, unspecified; Edema; Hyperlipidemia, unspecified ([facility]); Encounter for smoking cessation counseling; Venous ulcer of right leg ([facility]); Antibiotic-induced yeast infection Start: 08-27-2024 End: 08-27-2024 ambulatory MCKAYLA WAN Not Available Start: 08-27-2024 End: 08-27-2024 Clinisync Result Encounter Generic External Data Provider [facility] External Department Unsolicited Start: 08-27-2024 End: 08-27-2024 Clinisync Result Encounter Generic External Data Provider [facility] External Department Unsolicited Start: 08-08-2024 End: 08-08-2024 ambulatory [facility] Start: 07-17-2024 End: 07-17-2024 Refill Mckayla Blas CANDY DECORATOR Work Phone: [facility] Start: 07-14-2024 End: 07-14-2024 Office outpatient visit 25 minutes Mckayla Blas CANDY DECORATOR Work Phone: [facility] Comment on above: Primary hypertension ([facility]) (Primary Dx); Diabetic polyneuropathy associated with type 2 diabetes mellitus ([facility]); Pulmonary emphysema, unspecified emphysema type ([facility]); Critical limb ischemia of right lower extremity ([facility]); PAD (peripheral artery disease) ([facility]); Gastroesophageal reflux disease, unspecified whether esophagitis present; Bilateral lower extremity edema; Venous ulcer of right leg ([facility]); Type 2 diabetes mellitus with complication, with long-term current use of insulin ([facility]); Tobacco user; Encounter for smoking cessation counseling; Kidney stone; Adrenal mass 1 cm to 4 cm in diameter ([facility]); Radiculopathy, lumbar region; Non-seasonal allergic rhinitis, unspecified trigger; Type 2 diabetes mellitus with unspecified complications ([facility]) Start: 07-14-2024 End: 07-14-2024 ambulatory MCKAYLA WAN Not Available Start: 07-05-2024 End: 07-07-2024 Refill Mckayla Blas NP Work Phone: [facility] Comment on above: Bilateral lower extr emity edema Start: 06-11-2024 ambulatory Elbert ARAUZ Tabathai ty:SHEA [facility]rios[facility] Start: 06-11-2024 End: 06-11-2024 Patient encounter procedure Elbert ARAUZ [facility] [place] Start: 05-27-2024 End: 05-27-2024 Bamboo flowsheet Rain Souza MD Work Phone: [facility] Start: 05-27-2024 End: 05-27-2024 Bamboo flowsheet Rain Souza MD Work Phone: [facility] Start: 05-27-2024 End: 05-27-2024 ambulatory RAIN SOUZA Not Available Start: 05-27-2024 End: 05-27-2024 Office outpatient visit 25 minutes Rain Souza MD Work Phone: [facility] Comment on above: Type 2 diabetes asiya itus with hyperglycemia, with long-term current use of insulin (CMS/[facility]) (Primary Dx); Encounter for dietary consultation; [...] 04-14-2024 End: 04-14-2024 Bamboo flowsheet Mckayla Aichholz CANDY DECORATOR Work Phone: [facility] Start: 04-14-2024 End: 04-14-2024 Bamboo flowsheet Mckayla Blas CANDY DECORATOR Work Phone: [facility] Start: 04-14-2024 End: 04-14-2024 Office outpatient visit 25 minutes Mckayla Blas CANDY DECORATOR Work Phone: [facility] Comment on above: Primary hypertension (CMS/HCC) (Primary [...] Available Start: 04-05-2024 End: 04-06-2024 Refill Mckayla Harshadholz CANDY DECORATOR Work Phone: [facility] Comment on above: Hyperlipidemia, unsp ecified (CMS/HCC); Bilateral lower extremity edema Vitamin D deficiency , unspecified Start: 01-17-2024 Patient encounter procedure Rain Souza MD Work Phone: [facility] Start: 08-17-2023 Refill Mckayla Harshadholz CANDY DECORATOR Work Phone: [facility] Comment on above: Vaginal yeast infect ion (Primary Dx) Start: 08-14-2023 Refill Mckayla Aichholz CANDY DECORATOR Work Phone: [facility] Comment on above: Type 2 diabetes asiya [...] encounter procedure SARAH VEGA [facility] Start: 10-05-2022 End: 10-05-2022 ambulatory MARIANO LOZANO . Facility:[facility] Start: 09-21-2022 End: 09-21-2022 ambulatory SAYDA PATRICIARAVIJuanis Facility:[facility] Start: 09-14-2022 ambulatory RAFAEL GONGORA Facilit [...] 03-08-2022 End: 03-08-2022 ambulatory Stephanie Cortés Other [employer] Other Start: 03-08-2022 Office outpatient vi sit 15 minutes Stephanie Tico [facility] Start: 03-03-2022 End: 03-04-2022 ambulatory SLIP COVER OPERATOR MCKAYLA BLAS Facility:[facility] Start: 02-20-2022 End: 02-20-2022 ambulatory Stephanie Tico Other [employer] Other Start: 02-20-2022 Office outpatient ne w 45 minutes Stephanie Tico [facility] Start: 02-06-2022 End: 02-06-2022 Patient encounter procedure Elbert ARAUZ [facility] Start: 01-19-2022 End: 01-20-2022 ambulatory GILSONA VALENZUELA . Facility:[facility] Start: 12-24-2021 End: 12-24-2021 ambulatory OLE RAMIREZ Facility: Start: 08-26-2020 End: 09-10-2020 Patient encounter procedure MARY LLOYDLOS Facility:[facility] Start: 10-30-2019 End: 10-30-2019 Emergency department patient visit [facility] Start: 10-30-2019 End: 10-30-2019 Emergency department patient visit [facility] Emergency Department Start: 11-02-2016 Preoperative state Stephanie Tico Other [employer] Other Procedures Date Procedure Procedure Detail [...] Rain Souza MD Work Phone: Start: 10-08-2024 [facility] UA (CLEAN/CATCH) MICROSCOPIC IF INDICATE Mckayla Blas NP Work Phone: Start: 08-27-2024 ALL CBC WITH AUTO DIFF Generic External Data Provider Start: 05-27-2024 Gluc bld gluc mntr d ev cleared fda spec home use Rain Souza MD Work Phone: Start: 05-12-2024 [facility] CREATININE Generic External Data Provider Start: 12-14-2023 Mammography Rain urena MD Work Phone: Start: 11-22-2022 Mammography Mckayla clifford CANDY DECORATOR Work Phone: Start: 10-08-2015 Microscopic observat ion [Identifier] in Cervix by Cyto stain Mckayla Blas CANDY DECORATOR Work Phone: H/O: hysterectomy Elbert TIKA LARA Laparoscopic cholecystectomy Elbert ARAUZ Operative procedure on foot Elbert ARAUZ Plan of Treatment Date Care Activity Detail Author Start: 02-01-2026 End: 02-01-2026 Patient encounter procedure [facility] Start: 01-26-2026 Medicare Annual Wellness (AWV) Medicare Annual Wellness (AWV) [facility] Start: 10-08-2025 Urine screening for protein Diabetes: Urine Protein Screening [facility] Start: 08-03-2025 Screening for malignant neoplasm of colon [facility] Start: 07-14-2025 Glaucoma screening Diabetes: R etinopathy Screening [facility] Start: 05-28-2025 End: 05-28-2025 Patient encounter procedure [facility] Start: 05-13-2025 Glaucoma screening Diabetes: R etinopathy Screening [facility] Start: 05-01-2025 Hemoglobin A1c measurement Diabetes: Hemoglobin A1C [facility] Start: 04-29-2025 End: 04-29-2025 Patient encounter procedure [facility] Start: 03-09-2025 Influenza vaccination [facility] Start: 01-28-2025 End: 01-28-2025 Patient encounter procedure 01/28/2025 10:50 AM EDT Office Visit [facility] [address] [place] [address] Rain Souza MD [address] [place] [address] [facility] Start: 01-26-2025 End: 01-26-2025 Patient encounter procedure 01/26/2025 6:00 PM EDT Office Visit [facility] [address] [place] [phone] Mckayla Blas NP [address] [place] [phone] [facility] Start: 01-16-2025 Medicare Annual Wellness (AWV) Medicare Annual Wellness (AWV) [facility] Start: 01-07-2025 Hemoglobin A1c measurement Diabetes: Hemoglobin A1C [facility] Start: 12-15-2024 End: 12-27-2025 MG Breast - bilateral Screening Bilateral screening mammogram Imaging Routine Encounter for screening mammogram for malignant neoplasm of breast Expected: 12/15/2024 (Approximate), Expires: 12/27/2025 [facility] Work Phone: Comment on above: Expected: 12/15/2024 (Approximate), Expires: 12/27/2025 Start: 12-13-2024 Screening for malignant neoplasm of breast Mammogram [facility] Start: 11-11-2024 Urine screening for protein Diabetes: Urine Protein Screening [facility] Start: 10-27-2024 End: 10-27-2024 Patient encounter procedure 10/27/2024 2:00 PM EDT Office Visit [facility] [address] [place] [phone] Mckayla Blas NP [address] [place] [phone] [facility] Start: 10-08-2024 End: 10-08-2024 Patient encounter procedure 10/08/2024 11:20 AM EDT Office Visit [facility] [address] [place] [address] Rain Souza MD [address] [place] [address] [facility] Start: 08-27-2024 End: 08-27-2024 Patient encounter procedure 08/27/2024 5:30 PM EST Office Visit [facility] [address] [place] [address] Mckayla Blas, SILVANO [address] [place] [address] [facility] Start: 08-27-2024 End: 08-27-2025 25-hydroxyvitamin D3 [Mass/volume] in Serum or Plasma Vitamin D 25 hydroxy Lab Routine Vitamin deficiency Expected: 08/27/2024 (Approximate), Expires: 08/27/2025 [facility] Comment on above: Expected: 08/27/2024 (Approximate), Expires: 08/27/2025 Start: 08-27-2024 Hemoglobin A1c measurement Diabetes: Hemoglobin A1C [facility] Start: 08-27-2024 End: 08-27-2025 Hepatic function 2000 panel - Serum or Plasma Hepatic function panel Lab Routine Hyperlipidemia, unspecified (CMS/HCC) Expected: 08/27/2024 (Approximate), Expires: 08/27/2025 [facility] Comment on above: Expected: 08/27/2024 (Approximate), Expires: 08/27/2025 Start: 08-27-2024 End: 08-27-2025 Lipid 1996 panel - Serum or Plasma Lipid panel Lab Routine Mixed hyperlipidemia (CMS/HCC) Expected: 08/27/2024 (Approximate), Expires: 08/27/2025 [facility] Work Phone: Comment on above: Expected: 08/27/2024 (Approximate), Expires: 08/27/2025 Start: 08-27-2024 End: 08-27-2025 Microalbumin/Creatini ne panel in random Urine Microalbumin / creatinine, urine ratio Lab Routine Primary hypertension (CMS/HCC) Type 2 diabetes mellitus with complication, with long-term current use of insulin (CMS/HCC) Expected: 08/27/2024 (Approximate), Expires: 08/27/2025 [facility] Comment on above: Expected: 08/27/2024 (Approximate), Expires: 08/27/2025 Start: 08-27-2024 End: 08-27-2025 Urate [Mass/volume] in Serum or Plasma Uric acid Lab Routine Gout, unspecified cause, unspecified chronicity, unspecified site Expected: 08/27/2024 (Approximate), Expires: 08/27/2025 [facility] Comment on above: Expected: 08/27/2024 (Approximate), Expires: 08/27/2025 Start: 08-27-2024 End: 08-27-2025 Urinalysis complete panel - Urine Urinalysis with reflex microscopic (clean catch) Lab Routine Primary hypertension (CMS/HCC) Type 2 diabetes mellitus with complication, with long-term current use of insulin (CMS/HCC) Tobacco user Gout, unspecified cause, unspecified chronicity, unspecified site Expected: 08/27/2024 (Approximate), Expires: 08/27/2025 [facility] Comment on above: Expected: 08/27/2024 (Approximate), Expires: 08/27/2025 Start: 08-26-2024 End: 08-26-2024 Patient encounter procedure 08/26/2024 10:30 AM EST Office Visit [facility] [address] [place] [address] Rain Souza MD [address] [place] [address] [facility] Start: 07-14-2024 End: 07-14-2024 Patient encounter procedure 07/14/2024 6:30 PM EST Office Visit [facility] [address] [place] [address] Mckayla Blas, SILVANO [address] [facility] [place] [address] [facility] Start: 07-14-2024 End: 07-14-2024 Patient encounter procedure 07/14/2024 10:10 AM EST Office Visit [facility] [address] [place] [address] Rain Souza MD [address] [place] [address] [facility] Start: 06-06-2024 Influenza vaccination Influenza Vacc ine (#1) [facility] Comment on above: Postponed from 03/09 (Patient Refused) Start: 05-27-2024 End: 05-27-2024 Patient encounter procedure 05/27/2024 9:50 AM EST Office Visit [facility] [address] [place] [address] Rain Souza MD [address] [place] [address] [facility] Start: 05-17-2024 Hemoglobin A1c measurement Diabetes: Hemoglobin A1C [facility] Start: 05-15-2024 End: 05-15-2024 Chart abstracting 05/15/2024 Abstract [facility] [address] [place] [address] Rain Souza MD [address] [place] [address] [facility] Start: 05-15-2024 End: 05-15-2024 Patient encounter procedure 05/15/2024 11:20 AM EST Office Visit [facility] [address] [place] [address] Rain Souza MD [address] [place] [address] [facility] Start: 04-17-2024 End: 04-17-2024 Patient encounter procedure 04/17/2024 3:40 PM EDT Office Visit [facility] [address] [place] [phone] Mckayla Blas, SILVANO [address] [place] [phone] [facility] Start: 04-14-2024 End: 04-14-2024 Patient encounter procedure 04/14/2024 11:00 AM EDT Office Visit [facility] [address] [place] [phone] Mckayla Blas, SILVANO [address] [place] [phone] Arrived [facility] Comment on above: Arrived Start: 03-09-2024 Influenza vaccination Influenza Vacc ine (#1) [facility] Start: 02-19-2024 Hemoglobin A1c measurement Diabetes: Hemoglobin A1C [facility] Start: 11-24-2023 Urine screening for protein Diabetes: Urine Protein Screening [facility] Start: 11-23-2023 Screening for malignant neoplasm of breast Mammogram [facility] Start: 10-15-2023 End: 10-15-2023 Patient encounter procedure 10/15/2023 4:30 PM EDT Office Visit [facility] [address] [place] [id number] Mckayla Blas, CANDY DECORATOR [address] [place] [phone] [facility] Start: 08-09-2023 Hemoglobin A1c measurement Diabetes: Hemoglobin A1C [facility] Start: 05-27-2021 Glaucoma screening Diabetes: R etinopathy Screening [facility] Start: 03-09-2020 Influenza vaccination Flu vacc ine (Season Ended) [place], [place] Start: 10-07-2018 Screening for malignant neoplasm of cervix [facility] Start: 2010 Lipid panel Lipid screen [place], [place] Start: 2000 Screening for malignant neoplasm of cervix HPV/Cotest [facility] Start: 1991 Screening for malignant neoplasm of cervix Cervical cancer screen [place], [place] Start: 1989 DTaP/Tdap/Td vaccine (1 - Tdap) DTaP/Tdap/Td vaccine (1 - Tdap) [place], [place] Start: 1985 HIV screening HIV screen [place], [place] Start: 1970 Medicare Annual Wellness (AWV) Medicare Annual Wellness (AWV) [facility] Start: 1970 Screening for malignant neoplasm of colon [facility] BLOOD CULTURE 1 BLOOD CULTURE 1 Lab Routine 12/04/2024 4:44 PM EDT [facility] BLOOD CULTURE 2 BLOOD CULTURE 2 Lab Routine 12/04/2024 5:28 PM EDT [facility] Immunizations Immunization Date Immunization Notes Care Provider [facility] 05-18-2023 influenza, injectabl e, quadrivalent, contains preservative Mckayla Blas NP Work Phone: [facility] 05-18-2023 influenza virus vacc ine, unspecified formulation Rain Souza MD Work Phone: [facility] 07-19-2021 SARS-CoV-2 (COVID-19 ) mRNA BNT-162b2 vax SARAH SILVIA [facility] 10-28-2020 SARS-CoV-2 (COVID-19 ) mRNA BNT-162b2 vax [employer] [facility] 10-08-2020 SARS-CoV-2 (COVID-19 ) mRNA BNT-162b2 vax SARAHCAROLA VEGA [facility] 04-16-2017 influenza virus vacc ine, H5N1, A/ (national stockpile) Mckayla Blas CANDY DECORATOR Work Phone: [facility] 04-16-2017 influenza virus vacc ine, unspecified formulation Rain Souza MD Work Phone: [facility] 04-16-2017 influenza, unspecifi ed formulation Elbert ARAUZ [facility] 04-16-2017 pneumococcal polysaccharide vaccine, 23 valent Rain Souza MD Work Phone: [facility] 05-10-2016 influenza virus vacc ine, H5N1, A/ (national stockpile) Mckayla Blas CANDY DECORATOR Work Phone: [facility] 05-10-2016 influenza virus vacc ine, unspecified formulation Rain Souza MD Work Phone: [facility] 05-10-2016 influenza, unspecifi ed formulation Elbert ARAUZ [facility] 05-02-2013 influenza virus vacc ine, whole virus Rain Souza MD Work Phone: [facility] 05-02-2013 influenza, injectabl e, quadrivalent, contains preservative Mckayla Blas NP Work Phone: [facility] 05-02-2013 influenza, whole Elbert BARBARA ARAMBULA [facility] 01-29-1998 measles, mumps and rubella virus vaccine Rain Souza MD Work Phone: [facility] Payers Date Payer Category Payer Unknown [id number] 2023 Medicare (Managed Care) [id number]. [id number] 2023 Private Health Insurance [id number] 2023 Medicare [id number] 2018 Medicaid MEDICAID [facility] [id number] 2018-Present [phone] [address] [place] [address] Medicaid [id number] 2013 Medicare [id number] [id number]. [id number] 1970 Unknown [id number] 2.16.840.1.608858.3.579.2. 647 1970 Unknown [id number] 2.16.840.1.208372.3.579.2. 593 1970 Unknown [id number] 2.16.840.1.642079.3.579.2. 593 1970 Unknown [id number] 2.16.840.1.537254.3.579.2. 593 1970 Unknown [id number] 2.16.840.1.133574.3.579.2. 593 1970 Unknown [id number] 2.16.840.1.536559.3.579.2. 593 1970 Unknown [id number] 2.16.840.1.273670.3.579.2. 593 1970 Unknown [id number] 2.16.840.1.384817.3.579.2. 593 1970 Unknown [id number] 2.16.840.1.245747.3.579.2. 593 1970 Unknown [id number] 2.16.840.1.854180.3.579.2. 593 1970 Unknown [id number] 2.16.840.1.949340.3.579.2. 593 1970 Unknown [id number] 2.16.840.1.426059.3.579.2. 593 1970 Unknown [id number] 2.16.840.1.590543.3.579.2. 593 1970 Unknown [id number] 2.16.840.1.486923.3.579.2. 593 1970 Unknown [id number] 2.16.840.1.742366.3.579.2. 593 1970 Unknown [id number] 2.16.840.1.767629.3.579.2. 593 1970 Unknown [id number] 2.16.840.1.457803.3.579.2. 593 1970 Unknown [id number] .16.840.1.115325.3.579.2. 593 1970 Unknown [id number] 2.16.840.1.844682.3.579.2. 593 1970 Unknown [id number] 2.16.840.1.149265.3.579.2. 593 1970 Unknown [id number] 2.16.840.1.667952.3.579.2. 593 1970 Unknown [id number] 2.16.840.1.968358.3.579.2. 593 1970 Unknown [id number] 2.16.840.1.101776.3.579.2. 593 1970 Unknown [id number] 2.16.840.1.044400.3.579.2. 727 1970 Unknown [id number] 2.16.840.1.712311.3.579.2. 727 1970 Unknown [id number] 2.16.840.1.099620.3.579.2. 1259 1970 Unknown [id number] 2.16.840.1.694230.3.579.2. 1259 1970 Unknown [id number] 2.16.840.1.439339.3.579.2. 9 1970 Unknown [id number] 2.16.840.1.463371.3.579.2. 1259 1970 Unknown [id number] 2.16.840.1.422185.3.579.2. 1258 1970 Unknown [id number] 2.16.840.1.105170.3.579.2. 9 1970 Unknown [id number] 2.16.840.1.905047.3.579.2. 9 1970 Unknown [id number] 2.16.840.1.165879.3.579.2. 9 1970 Unknown [id number] 2.16.840.1.534499.3.579.2. 9 1970 Unknown [id number] 2.16.840.1.021786.3.579.2. 1970 Unknown [id number] 2.16.840.1.865128.3.579.2. 1970 Unknown [id number] 2.16.840.1.266778.3.579.2. 1970 Unknown [id number] 2.16.840.1.683125.3.579.2. 1970 Unknown [id number] 2.16.840.1.492142.3.579.2. 1970 Unknown [id number] 2.16.840.1.172326.3.579.2. 196 1959 Medicaid [id number] 1959 Private Health Insurance [id number] 1959 Unknown [id number] 2.16.840.1.988948.19 Medicare Medicare [id number] Private Health Insurance [facility] [id number] Unknown Regular Auto/Liability [id number] Social History Date Type Detail Facility Start: 02-17-2014 End: 12-13-2017 Tobacco smoking status NHIS Current every day smoker [place], [place] Start: 02-17-1994 History of tobacco use Cigarette Smo ker [place], [place] Start: 02-17-2014 End: 08-26-2024 Cigarettes smoked current (pack per day) - Reported [place] Start: 02-17-2014 Alcohol intake Current drinke r of alcohol (finding) [place] Start: 02-17-2014 Alcohol Comment Rare [facility] [place], [place] Start: 1970 Sex Assigned At Not on file M [place], [place] Exposure to SARS-CoV -2 (event) Unable to assess [place] Start: 02-06-2022 Tobacco smoking status Smoker (findi ng) [facility] Start: 07-10-2023 End: 08-26-2024 Sex Assigned At Female [facility] Start: 11-15-2022 End: 06-11-2024 Tobacco smoking status Heavy tobacco smoker (finding) [facility] Start: 07-10-2023 End: 01-29-2025 Tobacco use and [...] doctor or pharmacy [SILS] Rarely [facility] Sex Female (finding) [facility] Start: 1970 Sex Assigned At Female F [facility] NEGATED: Highlighted row N Medical Equipment Procedure Code Equipment Code Equipment Origin al Text Equipment Identifier Dates [id number] Start: 01-18-2024 USE TO TEST BLOO D SUGAR 4 TIMES DAILY [id number] Start: 07-07-2024 Functional Status Date Assessment Result Facility 01-26-2025 Patient Health [facility] ionnaire 2 item (PHQ-2) [Reported] [facility] 01-26-2025 Trouble falling or s taying asleep, or sleeping too much Not at all 01/26/2025 4:13 PM EDT Mychart, Generic Not at all [facility] 01-26-2025 Feeling tired or hav ing little energy Not at all 01/26/2025 4:13 PM EDT Mychart, Generic Not at all [facility] 01-26-2025 Poor appetite or overeating Not at all 01/26/2025 4:13 PM EDT Mychart, Generic Not at all [facility] 01-26-2025 Feeling bad about yourself-or that you are a failure or have let yourself or your family down Not at all 01/26/2025 4:13 PM EDT Mychart, Generic Not at all [facility] 01-26-2025 Trouble concentratin g on things, such as reading the newspaper or watching television Not at all 01/26/2025 4:13 PM EDT Mychart, Generic Not at all [facility] 01-26-2025 Moving or speaking s o slowly that other people could have noticed. Or the opposite - being so fidgety or restless that you have been moving around a lot more than usual Not at all 01/26/2025 4:13 PM EDT Mychart, Generic Not at all [facility] 01-26-2025 Thoughts that you wo uld be better off , or of hurting yourself in some way Not at all 01/26/2025 4:13 PM EDT Mychart, Generic Not at all [facility] 06-11-2024 Functional Status N/A [facility] 11-15-2022 Functional Status N/A [facility] 02-06-2022 Functional Status N/A [facility] Clinical Notes 01-19-2022 to 02-04-2025 [...] Follow-up as planned in 6 months. Thanks! [facility] 01-29-2025 History of Present illness [...] 25 mg, Oral, 2 times daily HYDROcodone-acetaminophen ([place]) 5-325 MG tablet 1 tablet, 3 times [...] Anxiety and depression 07/10/2023 Asthma ([facility]) 07/10/2023 Body mass index (BMI) 50.0-59.9, adult ([facility]) Cellulitis of left lower extremity Cervical cancer ([facility]) 09/17/2023 Chronic pain of both knees 09/17/2023 COPD (chronic obstructive pulmonary disease) ([facility]) 07/10/2023 COPD exacerbation ([facility]) 09/17/2023 Decreased functional mobility 09/17/2023 Diabetic neuropathy ([facility]) 07/10/2023 Dietary counseling and surveillance Edema 07/10/2023 Elevated sed rate Elevated WBC count Essential (primary) hypertension GERD (gastroesophageal reflux disease) 09/17/2023 Hyperlipidemia 09/17/2023 Hypertension 07/10/2023 Insomnia 09/17/2023 jail (current) use of insulin ([facility]) Lower extremity edema 09/17/2023 Mixed hyperlipidemia Morbid (severe) obesity due to excess calories ([facility]) Obstructive sleep apnea 07/10/2023 PAD (peripheral artery disease) 09/17/2023 Pancreatitis ([facility]) 09/17/2023 Pneumonia 09/17/2023 Proteinuria, unspecified Pulmonary hypertension ([facility]) 09/17/2023 Radiculopathy, lumbar region 09/17/2023 Tobacco user 09/17/2023 Type 2 diabetes mellitus with complication, with long-term current use of insulin ([facility]) 07/10/2023 Unilateral primary osteoarthritis, right hip [...] (BMI) of 50.0 to 59.9 in adult ([facility]) Diet and exercise reviewed with the patient Follow up in about 4 months (around 06/01/2025). 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 Associated Problem(s): COPD (chronic [...] 25 mg, Oral, 2 times daily HYDROcodone-acetaminophen ([place]) 5-325 MG tablet 1 tablet, 3 times [...] 07/10/2023 Body mass index (BMI) 50.0-59.9, adult ([facility]) Cellulitis of left lower extremity Cervical cancer ([facility]) 09/17/2023 Chronic pain of both knees 09/17/2023 COPD (chronic obstructive pulmonary disease) ([facility]) 07/10/2023 COPD exacerbation ([facility]) 09/17/2023 Decreased functional mobility 09/17/2023 Diabetic neuropathy ([facility]) 07/10/2023 Dietary counseling and surveillance Edema 07/10/2023 Elevated sed rate Elevated WBC count Essential (primary) hypertension GERD (gastroesophageal reflux disease) 09/17/2023 Hyperlipidemia 09/17/2023 Hypertension 07/10/2023 Insomnia 09/17/2023 jail (current) use of insulin ([facility]) Lower extremity edema 09/17/2023 Mixed hyperlipidemia Morbid (severe) obesity due to excess calories ([facility]) Obstructive sleep apnea 07/10/2023 PAD (peripheral artery disease) 09/17/2023 Pancreatitis ([facility]) 09/17/2023 Pneumonia 09/17/2023 Proteinuria, unspecified Pulmonary hypertension ([facility]) 09/17/2023 Radiculopathy, lumbar region 09/17/2023 Tobacco user 09/17/2023 Type 2 diabetes mellitus with complication, with long-term current use of insulin ([facility]) 07/10/2023 Unilateral primary osteoarthritis, right hip [...] This Visit Diabetic neuropathy (HCC) Continue with tristan pain mgmt is prescribing OARRS reviewed Fu in 3 months Goal: tighter glucose control, this has been improving, latest A1c is 7.4%!!! COPD (chronic obstructive pulmonary disease) ([facility]) Follows with 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 Hypertension Please check blood [...] of insulin ([facility]) Check blood sugars daily, notify if [...] amitriptyline (Elavil) 25 MG tablet Pulmonary hypertension ([facility]) Has seen [facility] Cardiology Hyperlipidemia On [...] Morbid (severe) obesity due to excess calories ([facility]) Discussed with patient their BMI (actual, [...] a yearly basis documented in this encounter [facility] 01-26-2025 Instructions Mckayla Blas NP - 01/26/2025 6:00 PM EDT Please call the [facility] to schedule your mammogram: [phone]- ext [phone] documented in this encounter [facility] 01-06-2025 Note Cardiovascular Medic [facility] SUBJECTIVE Chief Complaint Patient presents with Congestive Heart Failure Hypertension Hyperlipidemia Mitzi Macias is a 54 y.o. female here for follow-up. PMHx: HFpEF, HTN, HLD, DM, longstanding heavy smoker, COPD, DANIEL, morbid obesity HPI 01/06/2025 Since last seen she was admitted to [facility] for AMS on 12/05/2024. She was [...] complication, with long-term current use of insulin ([facility]) Unilateral primary osteoarthritis, right hip Vaginal yeast infection Venous insufficiency Bad odor of urine Critical limb ischemia of right lower extremity (CMS/HCC) Hyperpigmentation of skin 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 2 diabetes mellitus ([facility]) Myelolipoma of adrenal gland Venous ulcer of right leg ([facility]) Chronic diastolic heart failure ([facility]) Antibiotic-induced yeast infection Cellulitis of left lower extremity Cigarette nicotine dependence without complication Fever 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 ([facility]) jail current use of inhaled steroid Vitamin D deficiency, unspecified Vitamin deficiency Past Medical History: Diagnosis Date COPD (chronic obstructive pulmonary disease) ([facility]) Diabetes mellitus ([facility]) Hyperlipidemia Hypertension Sleep apnea Family History [...] , Rfl: ergocalciferol (Vitamin D-2) 1.25 MG (31539 Units) capsule, Take 1.25 mg by mouth., [...] and at bedtime., Disp: , Rfl: HYDROcodone-acetaminophen ([place]) 5-325 mg tablet, TAKE 1 TABLET BY MOUTH THREE TIMES A DAY NEEDED FOR PAIN MUST LAST 30 DAYS, Disp: , Rfl: insulin aspart (NovoLOG) 100 unit/mL (3 mL) injection pen, Novolog Flexpen U-100 Insulin aspart 100 unit/mL (3 mL) subcutaneous, Disp: , Rfl: insulin glargine (Lantus Solostar U-100 Insulin) 100 unit/mL (3 mL) injection pen (more content not included)... [facility] 01-06-2025 Note Patient is here [...] weight gain. Cardiovascular: Positive for leg swelling. [facility] 12-09-2024 History of Present illness [...] bad light. She was ultimately taken to [facility] ER, no tox screen was [...] 25 mg, Oral, 2 times daily HYDROcodone-acetaminophen ([place]) 5-325 MG tablet 1 tablet, 3 times [...] CT Albuminuria 09/17/2023 Angiomyolipoma Anxiety and depression ([facility]) 07/10/2023 Asthma 07/10/2023 Body mass index (BMI) 50.0-59.9, adult ([facility]) Cellulitis of left lower extremity Cervical cancer ([facility]) 09/17/2023 Chronic pain of both knees 09/17/2023 COPD (chronic obstructive pulmonary disease) ([facility]) 07/10/2023 COPD exacerbation ([facility]) 09/17/2023 Decreased functional mobility 09/17/2023 Diabetic neuropathy ([facility]) 07/10/2023 Dietary counseling and surveillance Edema 07/10/2023 Elevated sed rate Elevated WBC count Essential (primary) hypertension ([facility]) GERD (gastroesophageal reflux disease) 09/17/2023 Hyperlipidemia ([facility]) 09/17/2023 Hypertension (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) Lower extremity edema 09/17/2023 Mixed hyperlipidemia ([facility]) Morbid (severe) obesity due to excess calories ([facility]) Obstructive sleep apnea 07/10/2023 PAD (peripheral artery disease) ([facility]) 09/17/2023 Pancreatitis 09/17/2023 Pneumonia 09/17/2023 Proteinuria, unspecified Pulmonary hypertension ([facility]) 09/17/2023 Radiculopathy, lumbar region 09/17/2023 Tobacco user 09/17/2023 Type 2 diabetes mellitus with complication, with long-term current use of insulin ([facility]) 07/10/2023 Unilateral primary osteoarthritis, right hip 09/17/2023 [...] Problem List Items Addressed This Visit Hypertension ([facility]) Please check blood pressure daily and record DASH diet Limit caffeine Take medication as directed Contact office if chest pain, pressure, dizziness, shortness of breath, swelling legs Recommend slow position changes Current meds: hydralazine, lisinopril, Type 2 diabetes mellitus with complication, with long-term current use of insulin ([facility]) Check blood sugars daily, notify if [...] secondary to her steroids Anxiety and depression ([facility]) Current meds: elavil, duloxtine, COPD exacerbation ([facility]) Recent ER visit for unresponsiveness , found to have fever and elevated WBC Sent home with steroids and atb Breathing is better and she feels back to her normal baseline Does have home O2, she is not wearing this today Pulmonary hypertension ([facility]) Has seen [facility] Cardiology Morbid (severe) obesity due to excess calories ([facility]) Discussed with patient their BMI (actual, [...] Finish atb's Associated Problem(s): Anxiety and depression ([facility]) Current meds: elavil, duloxtine, Associated Problem(s): Type 2 diabetes mellitus with complication, with long-term current use of insulin ([facility]) Check blood sugars daily, notify if [...] wearing this today documented in this encounter [facility] 12-09-2024 Instructions Mckayla Blas NP - 12/09/2024 10:00 AM EDT Keep appt with wound care today Keep fu with me, sooner if needed documented in this encounter [facility] 10-27-2024 History of Present illness [...] smoking/tobacco exposure. Past treatments include direct vasodilators, TIAL inhibitors and diuretics. The current treatment provides [...] 25 mg, Oral, 2 times daily HYDROcodone-acetaminophen ([place]) 5-325 MG tablet 1 tablet, 3 times [...] Albuminuria 09/17/2023 Angiomyolipoma Anxiety and depression ([facility]) 07/10/2023 Asthma 07/10/2023 Body mass index (BMI) 50.0-59.9, adult ([facility]) Cellulitis of left lower extremity Cervical cancer ([facility]) 09/17/2023 Chronic pain of both knees 09/17/2023 COPD (chronic obstructive pulmonary disease) ([facility]) 07/10/2023 COPD exacerbation ([facility]) 09/17/2023 Decreased functional mobility 09/17/2023 Diabetic neuropathy ([facility]) 07/10/2023 Dietary counseling and surveillance Edema 07/10/2023 Elevated sed rate Elevated WBC count Essential (primary) hypertension ([facility]) GERD (gastroesophageal reflux disease) 09/17/2023 Hyperlipidemia ([facility]) 09/17/2023 Hypertension ([facility]) 07/10/2023 Insomnia 09/17/2023 jail (current) use of insulin ([facility]) Lower extremity edema 09/17/2023 Mixed hyperlipidemia ([facility]) Morbid (severe) obesity due to excess calories ([facility]) Obstructive sleep apnea 07/10/2023 PAD (peripheral artery disease) ([facility]) 09/17/2023 Pancreatitis 09/17/2023 Pneumonia 09/17/2023 Proteinuria, unspecified Pulmonary hypertension ([facility]) 09/17/2023 Radiculopathy, lumbar region 09/17/2023 Tobacco user 09/17/2023 Type 2 diabetes mellitus with complication, with long-term current use of insulin ([facility]) 07/10/2023 Unilateral primary osteoarthritis, right hip 09/17/2023 [...] List Items Addressed This Visit Diabetic neuropathy ([facility]) - Primary Continue with cintia hudson mgmt is prescribing OARRS reviewed Fu in 3 months Goal: tighter glucose control, this has been improving, latest A1c is 7.4%!!! Hypertension ([facility]) Please check blood pressure daily and record DASH diet Limit caffeine Take medication as directed Contact office if chest pain, pressure, dizziness, shortness of breath, swelling legs Recommend slow position changes Current meds: hydralazine, lisinopril, Relevant Medications hydrALAZINE (Apresoline) 25 MG tablet lisinopril 20 MG tablet Type 2 diabetes mellitus with complication, with long-term current use of insulin ([facility]) Check blood sugars daily, notify if [...] 81 MG chewable tablet Anxiety and depression ([facility]) Current meds: elavil, duloxtine, Relevant Medications DULoxetine (Cymbalta) [address] capsule Bilateral lower extremity edema Limit sodium , elevate legs, furosemide Relevant Medications furosemide (Lasix) 20 MG tablet potassium chloride ER (Micro-K) 10 MEQ ER capsule furosemide (Lasix) 40 MG tablet Insomnia Relevant Medications amitriptyline (Elavil) 25 MG tablet PAD (peripheral artery disease) ([facility]) Asa, statin Quit smoking BP and [...] MG tablet Venous ulcer of right leg ([facility]) Continue with wound care and management of wound, currently they are using dakins Wound is improving Morbid (severe) obesity due to excess calories ([facility]) Discussed with patient their BMI (actual, [...] mounjaro for DM Chronic diastolic heart failure ([facility]) Current meds; asa, farxiga, lasix, hydralazine, lisinopril, Follows with cardilogy Reviewed 08/02 notes Cigarette nicotine dependence without complication Is currently using chantix, and is doing well, less desire, smoking less Vitamin D deficiency, unspecified Relevant Medications ergocalciferol (Vitamin D2) 1.25 MG (80584 UT) capsule Gastro-esophageal reflux disease without esophagitis Relevant Medications omeprazole (PriLOSEC) [address] capsule Other Visit Diagnoses Type 2 diabetes mellitus with unspecified complications Relevant Medications dapagliflozin (Farxiga) 10 MG Associated Problem(s): Cigarette nicotine dependence without complication Is currently using chantix, and is doing well, less desire, smoking less Associated Problem(s): Anxiety and depression ([facility]) Current meds: elavil, duloxtine, Associated Problem(s): Type 2 diabetes mellitus with complication, with long-term current use of insulin ([facility]) Check blood sugars daily, notify if [...] A1c is 7.4%!!! documented in this encounter [facility] 10-27-2024 Instructions Mckayla Blas NP - 10/27/2024 2:00 PM EDT No dose changes in meds You will be due for mammogram I will send order to [facility], they should call you to schedule If no call, please call [phone] ext [phone] documented in this encounter [facility] 10-08-2024 History of Present illness [...] or chew. ergocalciferol (Vitamin D2) 1.25 MG (05560 UT) capsule TAKE 1 CAPSULE BY MOUTH [...] 25 mg, Oral, 2 times daily HYDROcodone-acetaminophen ([place]) 5-325 MG tablet 1 tablet, 3 times [...] CT Albuminuria 09/17/2023 Angiomyolipoma Anxiety and depression ([facility]) 07/10/2023 Asthma ([facility]) 07/10/2023 Body mass index (BMI) 50.0-59.9, adult ([facility]) Cellulitis of left lower extremity Cervical cancer ([facility]) 09/17/2023 Chronic pain of both knees 09/17/2023 COPD (chronic obstructive pulmonary disease) ([facility]) 07/10/2023 COPD exacerbation ([facility]) 09/17/2023 Decreased functional mobility 09/17/2023 Diabetic neuropathy ([facility]) 07/10/2023 Dietary counseling and surveillance Edema 07/10/2023 Elevated sed rate Elevated WBC count Essential (primary) hypertension ([facility]) GERD (gastroesophageal reflux disease) 09/17/2023 Hyperlipidemia ([facility]) 09/17/2023 Hypertension ([facility]) 07/10/2023 Insomnia 09/17/2023 jail (current) use of insulin ([facility]) Lower extremity edema 09/17/2023 Mixed hyperlipidemia ([facility]) Morbid (severe) obesity due to excess calories ([facility]) Obstructive sleep apnea 07/10/2023 PAD (peripheral artery disease) ([facility]) 09/17/2023 Pancreatitis 09/17/2023 Pneumonia 09/17/2023 Proteinuria, unspecified Pulmonary hypertension ([facility]) 09/17/2023 Radiculopathy, lumbar region 09/17/2023 Tobacco user 09/17/2023 Type 2 diabetes mellitus with complication, with long-term current use of insulin ([facility]) 07/10/2023 Unilateral primary osteoarthritis, right hip 09/17/2023 [...] hyperglycemia, with long-term current use of insulin ([facility]) - POCT glucose manually resulted - POCT glycosylated hemoglobin (Hb A1C) docked device We will continue with Lantus 58, lispro 02-16-12 according to meal size, Mounjaro 15 mg once weekly, Farxiga 5 mg once a day. Encounter for dietary consultation Vitamin D deficiency Primary hypertension ([facility]) Insulin long-term use ([facility]) Hyperlipemia, mixed (CMS/HCC) Microalbuminuria Class 3 severe obesity due to excess calories with serious comorbidity and body mass index (BMI) of 50.0 to 59.9 in adult Diet and exercise reviewed with the patient Follow up in about 4 months (around 02/07/2025). documented in this encounter [facility] 08-27-2024 History of Present illness [...] or chew. ergocalciferol (Vitamin D2) 1.25 MG (36571 UT) capsule TAKE 1 CAPSULE BY MOUTH [...] 25 mg, Oral, 2 times daily HYDROcodone-acetaminophen ([place]) 5-325 MG tablet 1 tablet, 3 times [...] Albuminuria 09/17/2023 Angiomyolipoma Anxiety and depression ([facility]) 07/10/2023 Asthma ([facility]) 07/10/2023 Body mass index (BMI) 50.0-59.9, adult ([facility]) Cellulitis of left lower extremity Cervical cancer ([facility]) 09/17/2023 Chronic pain of both knees 09/17/2023 COPD (chronic obstructive pulmonary disease) ([facility]) 07/10/2023 COPD exacerbation ([facility]) 09/17/2023 Decreased functional mobility 09/17/2023 Diabetic neuropathy (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) Lower extremity edema 09/17/2023 Mixed hyperlipidemia ([facility]) Morbid (severe) obesity due to excess calories ([facility]) Obstructive sleep apnea 07/10/2023 PAD (peripheral artery disease) ([facility]) 09/17/2023 Pancreatitis 09/17/2023 Pneumonia 09/17/2023 Proteinuria, unspecified Pulmonary hypertension ([facility]) 09/17/2023 Radiculopathy, lumbar region 09/17/2023 Tobacco user 09/17/2023 Type 2 diabetes mellitus with complication, with long-term current use of insulin ([facility]) 07/10/2023 Unilateral primary osteoarthritis, right hip [...] List Items Addressed This Visit Diabetic neuropathy ([facility]) Continue with cintia hudson mgmt is prescribing OARRS reviewed Fu in 3 months Goal: tighter glucose control Hypertension ([facility]) Please check blood pressure daily and [...] complication, with long-term current use of insulin ([facility]) Check blood sugars daily, notify if [...] / creatinine, urine ratio Anxiety and depression ([facility]) - Primary Current meds: elavil, duloxtine, [...] PPI Malignant neoplasm of cervix uteri, unspecified ([facility]) Had in the past, had hysterectomy [...] as much as possible Associated Problem(s): Hypertension ([facility]) Please check blood pressure daily and record DASH diet Limit caffeine Take medication as directed Contact office if chest pain, pressure, dizziness, shortness of breath, swelling legs Recommend slow position changes Current meds: hydralazine, lisinopril, Associated Problem(s): Chronic diastolic heart failure ([facility]) Current meds; asa, farxiga, lasix, hydralazine, lisinopril, Follows with cardilogy Reviewed 08/02 notes Associated Problem(s): COPD (chronic obstructive pulmonary disease) ([facility]) Follows with sam Needs smoking cessation Current meds: duoneb, albuterol, daliresp, Associated Problem(s): Asthma ([facility]) Current meds: albuterol, duoneb, 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 Associated Problem(s): Obstructive sleep [...] tighter glucose control documented in this encounter [facility] 08-08-2024 Note [place] [facility] Subjective Mitzi Macias is a [...] Diagnosis Date COPD (chronic obstructive pulmonary disease) ([facility]) Diabetes mellitus ([facility]) Hyperlipidemia Hypertension Sleep apnea Past Surgical [...] , Rfl: ergocalciferol (Vitamin D-2) 1.25 MG (63385 Units) capsule, Take 1.25 mg by mouth., [...] and at bedtime., Disp: , Rfl: HYDROcodone-acetaminophen ([place]) 5-325 mg tablet, TAKE 1 TABLET BY [...] TWICE DAILY, Disp: (more content not included)... [facility] 07-14-2024 History of Present illness [...] or chew. ergocalciferol (Vitamin D2) 1.25 MG (18045 UT) capsule TAKE 1 CAPSULE BY MOUTH ONE TIME PER WEEK furosemide (LASIX) 40 mg, Oral, Daily furosemide (LASIX) 20 mg, Oral, Daily PRN, Take in the afternoon as needed hydrALAZINE (APRESOLINE) 25 mg, Oral, 2 times daily HYDROcodone-acetaminophen ([place]) 5-325 MG tablet 1 tablet, 3 times [...] Albuminuria 09/17/2023 Angiomyolipoma Anxiety and depression ([facility]) 07/10/2023 Asthma ([facility]) 07/10/2023 Body mass index (BMI) 50.0-59.9, adult ([facility]) Cellulitis of left lower extremity Cervical cancer ([facility]) 09/17/2023 Chronic pain of both knees 09/17/2023 COPD (chronic obstructive pulmonary disease) ([facility]) 07/10/2023 COPD exacerbation ([facility]) 09/17/2023 Decreased functional mobility 09/17/2023 Diabetic neuropathy ([facility]) 07/10/2023 Dietary counseling and surveillance Edema 07/10/2023 Elevated sed rate Elevated WBC count Essential (primary) hypertension ([facility]) GERD (gastroesophageal reflux disease) 09/17/2023 Hyperlipidemia ([facility]) 09/17/2023 Hypertension ([facility]) 07/10/2023 Insomnia 09/17/2023 jail (current) use of insulin ([facility]) Lower extremity edema 09/17/2023 Mixed hyperlipidemia ([facility]) Morbid (severe) obesity due to excess calories ([facility]) Obstructive sleep apnea 07/10/2023 PAD (peripheral artery disease) ([facility]) 09/17/2023 Pancreatitis 09/17/2023 Pneumonia 09/17/2023 Proteinuria, unspecified Pulmonary hypertension ([facility]) 09/17/2023 Radiculopathy, lumbar region 09/17/2023 Tobacco user 09/17/2023 Type 2 diabetes mellitus with complication, with long-term current use of insulin ([facility]) 07/10/2023 Unilateral primary osteoarthritis, right hip [...] List Items Addressed This Visit Diabetic neuropathy ([facility]) Continue with tristan EAST reviewed Fu in 3 months COPD (chronic obstructive pulmonary disease) ([facility]) Stable at this time, no changes in meds Encouraged smoking cessation Cont with dr Yañez Hypertension ([facility]) - Primary Please check blood pressure daily and record DASH diet Limit caffeine Take medication as directed Contact office if chest pain, pressure, dizziness, shortness of breath, swelling legs Recommend slow position changes Current meds: hydralazine, lisinopril, Type 2 diabetes mellitus with complication, with long-term current use of insulin ([facility]) Check blood sugars daily, notify if [...] Critical limb ischemia of right lower extremity ([facility]) Saw vascular, does have narrowing in arteries in legs, and thus the wounds not healing At this point they strongly urge to quit smoking or risk limb amputation Cont asa and statin Also good blood pressure and sugar control Venous ulcer of right leg ([facility]) Encounter for smoking cessation counseling Relevant Medications nicotine (Nicoderm, Step 1) 21 MG/24HR patch Other Visit Diagnoses Type 2 diabetes mellitus with unspecified complications ([facility]) Quitting smokinppd, chantix not helped, ] [...] complication, with long-term current use of insulin ([facility]) Check blood sugars daily, notify if [...] PPI Associated Problem(s): PAD (peripheral artery disease) ([facility]) Asa, statin Quit smoking BP and [...] in 3 months documented in this encounter [facility] 06-11-2024 Hospital Discharge instructions Patient [...] require a prescription. You can also purchase [id number] medicines. Medicines may have nicotine in them [...] and encouragement. Call telephone quitlines, such as 5-619-GTYM-NOW, reach out to support groups, or work [...] provider. Document Revised: 06/16/2022 Document Reviewed: 06/16/2022 [employer] Patient Education [address] 06/11/2024 10:39:22 Dietary Guidelines to Help Prevent [...] include: ?8 oz (237 mL) of milk, xmyyrct-[id number]-tbvfp milk, and calcium-fortifiedfruit juice. Calcium-fortified means that [...] potatoes, and Armenian chard. ?Peanuts. ?Potato chips, hungarian fries, and baked potatoes with skin on. ?Nuts and nut products. ?Chocolate. If you regularly take a diuretic medicine, make sure to eat at least 1 or 2 servings of fruits or vegetables that are high in potassium each day. These include: ?Avocado. ?Banana. ?[place], prune, carrot, or tomato juice. ?Baked potato. [...] magnesium, fish oil, or vitamin B6. Take gqcd-qhp-zshxjlo and prescription medicines only as told by [...] Casseroles. Pizza. Lasagna. Frozen meals. Potato chips. Malaysian fries. The items listed above may not [...] provider. Document Revised: 10/05/2022 Document Reviewed: 10/05/2022 [employer] Patient Education [address] Follow Up Care 05/06/2024 08:24:56 With:REGLA PHIPPS, Elbert Joya, URL Address: [facility] [address] , [place] [address]- When: Unknown [facility] [...] or chew. ergocalciferol (Vitamin D2) 1.25 MG (91737 UT) capsule TAKE 1 CAPSULE BY MOUTH ONE TIME PER WEEK furosemide (LASIX) 20 mg, Oral, Daily PRN, Take in the afternoon as needed furosemide (LASIX) 40 mg, Oral, Daily Glucose Blood (ACCU-CHEK JAQUI PLUS ) 4 times daily hydrALAZINE (APRESOLINE) 25 mg, Oral, 2 times daily HYDROcodone-acetaminophen ([place]) 5-325 MG tablet 1 tablet, 3 times [...] CT Albuminuria 09/17/2023 Angiomyolipoma Anxiety and depression ([facility]) 07/10/2023 Asthma ([facility]) 07/10/2023 Body mass index (BMI) 50.0-59.9, adult ([facility]) Cellulitis of left lower extremity Cervical cancer ([facility]) 09/17/2023 Chronic pain of both knees 09/17/2023 COPD (chronic obstructive pulmonary disease) ([facility]) 07/10/2023 COPD exacerbation ([facility]) 09/17/2023 Decreased functional mobility 09/17/2023 Diabetic neuropathy ([facility]) 07/10/2023 Dietary counseling and surveillance Edema 07/10/2023 Elevated sed rate Elevated WBC count GERD (gastroesophageal reflux disease) 09/17/2023 Hyperlipidemia ([facility]) 09/17/2023 Hypertension ([facility]) 07/10/2023 Insomnia 09/17/2023 jail (current) use of insulin ([facility]) Lower extremity edema 09/17/2023 Morbid (severe) obesity due to excess calories ([facility]) Obstructive sleep apnea 07/10/2023 PAD (peripheral artery disease) ([facility]) 09/17/2023 Pancreatitis 09/17/2023 Pneumonia 09/17/2023 Proteinuria, unspecified Pulmonary hypertension ([facility]) 09/17/2023 Radiculopathy, lumbar region 09/17/2023 Tobacco user 09/17/2023 Type 2 diabetes mellitus with complication, with long-term current use of insulin ([facility]) 07/10/2023 Unilateral primary osteoarthritis, right hip 09/17/2023 [...] hyperglycemia, with long-term current use of insulin ([facility]) - POCT glucose manually resulted - POCT glycosylated hemoglobin (Hb A1C) docked device We will continue with Lantus 58, lispro 02/16/12 according to meal size, Mounjaro 15 mg once weekly, Farxiga 5 mg once a day Encounter for dietary consultation Vitamin D deficiency Primary hypertension ([facility]) To follow with her PCP Insulin long-term use ([facility]) Hyperlipemia, mixed ([facility]) Continue with Zocor 10 mg once daily Microalbuminuria Class 3 severe obesity due to excess calories with serious comorbidity and body mass index (BMI) of 50.0 to 59.9 in adult ([facility]) Diet and exercise reviewed with the patient Follow up in about 3 months (around 08/27/2024). documented in this encounter [facility] 04-14-2024 History of Present illness Narrative Associated Problem(s): Hyperpigmentation of skin Will try cerevue ointment to see if helps Associated Problem(s): Tobacco user Urged to quit Associated Problem(s): Type 2 diabetes mellitus with complication, with long-term current use of insulin ([facility]) Check blood sugars daily, follow w [...] Stable on current meds Associated Problem(s): Hypertension ([facility]) Stable on current meds Refill meds Associated Problem(s): COPD (chronic obstructive pulmonary disease) ([facility]) Stable at this time, no changes in meds Encouraged smoking cessation Cont with dr Yañez Associated Problem(s): Diabetic neuropathy ([facility]) Continue with tristan EAST reviewed Fu [...] being taken. 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 Hypertension This is [...] or chew. ergocalciferol (Vitamin D2) 1.25 MG (25497 UT) capsule TAKE 1 CAPSULE BY MOUTH ONE TIME PER WEEK furosemide (LASIX) 20 mg, Oral, Daily PRN, Take in the afternoon as needed furosemide (LASIX) 40 mg, Oral, Daily Glucose Blood (ACCU-CHEK JAQUI PLUS ) 4 times daily HumaLOG KWIKPEN 100 UNIT/ML injection Subcutaneous hydrALAZINE (APRESOLINE) 25 mg, Oral, 2 times daily HYDROcodone-acetaminophen ([place]) 5-325 MG tablet 1 tablet, 3 times [...] CT Albuminuria 09/17/2023 Angiomyolipoma Anxiety and depression ([facility]) 07/10/2023 Asthma ([facility]) 07/10/2023 Cellulitis of left lower extremity Cervical cancer ([facility]) 09/17/2023 Chronic pain of both knees 09/17/2023 COPD (chronic obstructive pulmonary disease) ([facility]) 07/10/2023 COPD exacerbation ([facility]) 09/17/2023 Decreased functional mobility 09/17/2023 Diabetic neuropathy ([facility]) 07/10/2023 Edema 07/10/2023 Elevated sed rate Elevated WBC count GERD (gastroesophageal reflux disease) 09/17/2023 Hyperlipidemia ([facility]) 09/17/2023 Hypertension ([facility]) 07/10/2023 Insomnia 09/17/2023 Lower extremity edema 09/17/2023 Obstructive sleep apnea 07/10/2023 PAD (peripheral artery disease) ([facility]) 09/17/2023 Pancreatitis 09/17/2023 Pneumonia 09/17/2023 Pulmonary hypertension ([facility]) 09/17/2023 Radiculopathy, lumbar region 09/17/2023 Tobacco user 09/17/2023 Type 2 diabetes mellitus with complication, with long-term current use of insulin ([facility]) 07/10/2023 Unilateral primary osteoarthritis, right hip 09/17/2023 [...] List Items Addressed This Visit Diabetic neuropathy ([facility]) Continue with tristan EAST reviewed Fu in 3 months Relevant Medications pregabalin (Lyrica) 300 MG capsule COPD (chronic obstructive pulmonary disease) ([facility]) - Primary Stable at this time, no changes in meds Encouraged smoking cessation Cont with dr Yañez Hypertension ([facility]) Stable on current meds Refill meds Relevant Medications hydrALAZINE (Apresoline) 25 MG tablet lisinopril 20 MG tablet Type 2 diabetes mellitus with complication, with long-term current use of insulin ([facility]) Check blood sugars daily, follow w [...] 500 MCG tablet documented in this encounter [facility] 11-15-2022 Hospital Discharge instructions Patient [...] include: ?8 oz (237 mL) of milk, shsjjhh-tpotbldvmfon-jwafm milk, and calcium-fortifiedfruit juice. Calcium-fortified means that [...] potatoes, and Armenian chard. ?Peanuts. ?Potato chips, hungarian fries, and baked potatoes with skin on. ?Nuts and nut products. ?Chocolate. If you regularly take a diuretic medicine, make sure to eat at least 1 or 2 servings of fruits or vegetables that are high in potassium each day. These include: ?Avocado. ?Banana. ?[place], prune, carrot, or tomato juice. ?Baked potato. [...] magnesium, fish oil, or vitamin B6. Take pnpl-wrf-fkwjcmv and prescription medicines only as told by [...] Casseroles. Pizza. Lasagna. Frozen meals. Potato chips. Malaysian fries. The items listed above may not [...] provider. Document Revised: 03/06/2022 Document Reviewed: 03/06/2022 [employer] Patient Education [address] Follow Up Care 02/06/2022 11:44:09 With:SARAH VEGA PA-C, URL Address: [address] [place] [address] When: Unknown [facility] 08-24-2022 Note CONSULTATION CONSULTATION DATE: [...] We maintain her on pain medication with [place] 5/325 t.i.d., diclofenac 75 mg b.i.d. Her [...] her at this point. A refill for [place] 5/325 t.i.d. and diclofenac 75 mg b.i.d. will be sent to the pharmacy. Vitamin compliance and nutrition were discussed and enforced. I did highly encourage her to use exercise bands to increase the strength in her lower extremities. We will see her in three months' time, unless otherwise indicated, and patient agrees. [facility] 05-11-2022 Note CONSULTATION CONSULTATION DATE: [...] 150. Medications include Lyrica 300 mg b.i.d., [place] 5/325 t.i.d., diclofenac 75 mg b.i.d. and [...] her medications today. We will maintain Lyrica, [place] and diclofenac at the set dose and frequency. We will follow-up in the clinic in three months' time. The patient is in agreement to this. Vitamin importance and nutrition were discussed. [facility] 04-20-2022 Note CONSULTATION CONSULTATION DATE: [...] medications include Tylenol, Lyrica 300 mg b.i.d., [place] 5/325 t.i.d., amitriptyline, diclofenac and duloxetine. Patient's [...] be followed up in the clinic. [facility] 03-08-2022 Evaluation note Encounter Date [...] to the DANIEL. Thrombocytopenia is unclear etiology. [facility] 08-15-2022 Evaluation note* Encounter Date [...] follow with Dr. Souza and Dr. Arauz. [facility] 08-01-2022 Hospital Discharge instructions Patient Education [...] fried and sweet foods. General instructions Take asvj-mhe-rvnolkp and prescription medicines only as told by [...] 04/21/2010 Document Revised: 10/16/2019 Document Reviewed: 07/11/2018 [employer] Patient Education [address] Follow Up Care 01/05/2022 12:02:03 With:REGLA PHIPPS, Elbert Joya, URL Address: [facility] [address] [place] [address] [phone] When:Within 6 Month(s) Comments:w/ repeat CT A/P [facility] 07-14-2022 NoteCONSULTATION PROCEDURE DATE: 01/19/2022 [...] pattern and the patient tolerated it well. [facility] Signed and Approved by: GIL VALENZUELA . 01/27/2022 14:15:00[facility]07-14-2022 NoteCONSULTATION CONSULTATION DATE: 01/19/2022 This is a [...] today. Medications include Lyrica 300 mg b.i.d., [place] 5/325 t.i.d., diclofenac 75 mg b.i.d. and [...] in three months' time unless otherwise indicated. [facility] Signed and Approved by: GIL VALENZUELA . 01/27/2022 14:15:00[facility] Future Appointments Appointment Date:08/14/2022 09:15:00 AM Scheduled Provider:Elbert ARAUZ MD Location:[facility] Appointment Type:URO Office Visit [facility] evaluation + Plan note Future Appointments Appointment Date:04/22/2024 10:00:00 AM Scheduled Provider:SARAH VEGA PA-C Location:[facility] Appointment Type:URO Office Visit [facility] evaliiqnuh note* Diagnosis Type 2 diabetes mellitus with unspecified complications ([facility]) Edema, unspecified Edema [facility] Diagnosis Vaginal yeast infection- Primary Candidiasis of vulva and vagina documented [facility]* Diagnosis Primary hypertension ([facility]/HCC)- Primary Unspecified essential hypertension Insomnia Insomnia, unspecified Type 2 diabetes mellitus with complication, with long-term current use of insulin ([facility]) Non-seasonal allergic rhinitis, unspecified trigger Type 2 diabetes mellitus with unspecified complications (CMS/HCC) Anxiety and depression ([facility]) Gastro-esophageal reflux disease without esophagitis Edema, unspecified Edema Diabetic polyneuropathy associated with type 2 diabetes mellitus ([facility]/HCC) Chronic obstructive pulmonary disease, unspecified (CMS/HCC) Pulmonary emphysema, unspecified emphysema type (CMS/HCC) Bilateral lower extremity edema Tobacco user Tobacco use disorder Hyperpigmentation of skin Other dyschromia [facility]* Diagnosis Obstructive sleep apnea- Primary Obstructive sleep apnea (adult) (pediatric) Pulmonary emphysema, unspecified emphysema type (CMS/HCC) Primary hypertension ([facility]) Unspecified essential hypertension Type 2 diabetes mellitus with complication, with long-term current use of insulin ([facility]) Anxiety and depression (CMS/[facility]) Bilateral lower extremity edema Pulmonary emphysema, unspecified emphysema type (CMS/HCC)- Primary Primary hypertension (CMS/[facility]) Unspecified essential hypertension Class 3 severe obesity with serious comorbidity and body mass index (BMI) of 50.0 to 59.9 in adult, unspecified obesity type ([facility]) Obstructive sleep apnea Obstructive sleep apnea (adult) (pediatric) Pulmonary hypertension (CMS/[facility]) Other chronic pulmonary heart diseases Tobacco user Tobacco use disorder Cardiomegaly Primary hypertension ([facility])- Primary Unspecified essential hypertension Gastroesophageal reflux disease, unspecified whether esophagitis present Type 2 diabetes mellitus with complication, with long-term current use of insulin ([facility]) Mixed hyperlipidemia ([facility]) Mixed hyperlipidemia Tobacco user Tobacco use disorder Encounter for screening mammogram for malignant neoplasm of breast Chronic obstructive pulmonary disease, unspecified ([facility]) Other specified chronic obstructive pulmonary disease ([facility]) Anxiety and depression ([facility]) Edema, unspecified Edema Hyperlipidemia, unspecified ([facility]) Diabetic polyneuropathy associated with type 2 diabetes mellitus ([facility]) Gout, unspecified cause, unspecified chronicity, unspecified site Non-seasonal allergic rhinitis, unspecified trigger Bilateral lower extremity edema COPD exacerbation ([facility]) Obstructive chronic bronchitis with exacerbation Pulmonary emphysema, unspecified emphysema type ([facility]) Venous insufficiency Unspecified venous (peripheral) insufficiency Candidiasis of breast COPD exacerbation ([facility])- Primary Obstructive chronic bronchitis with exacerbation Pulmonary hypertension ([facility]) Other chronic pulmonary heart diseases Class 3 severe obesity with serious comorbidity and body mass index (BMI) of 50.0 to 59.9 in adult, unspecified obesity type ([facility]) Encounter for subsequent annual wellness visit (AWV) in Medicare patient- Primary Type 2 diabetes mellitus with unspecified complications ([facility]) Pulmonary emphysema, unspecified emphysema type ([facility]) Moderate persistent asthma without complication ([facility]) Primary hypertension ([facility]) Unspecified essential hypertension Type 2 diabetes mellitus with complication, with long-term current use of insulin ([facility]) Class 3 severe obesity with serious comorbidity and body mass index (BMI) of 50.0 to 59.9 in adult, unspecified obesity type ([facility]) Tobacco user Tobacco use disorder Other headache syndrome Malignant neoplasm of cervix uteri, unspecified ([facility]) Other specified disorders of adrenal gland ([facility]) Major depressive disorder, single episode, mild (HCC) ([facility]) Major depressive disorder, single episode, mild 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 exposed ([facility]) Chronic respiratory failure, unspecified whether with hypoxia or hypercapnia ([facility]) Disorder of adrenal gland, unspecified ([facility]) Non-pressure chronic ulcer of other part of right lower leg limited to breakdown of skin ([facility]) Non-recurrent acute suppurative otitis media of left ear without spontaneous rupture of tympanic membrane Primary hypertension ([facility])- Primary Unspecified essential hypertension Insomnia Insomnia, unspecified Type 2 diabetes mellitus with complication, with long-term current use of insulin ([facility]) Non-seasonal allergic rhinitis, unspecified trigger Type 2 diabetes mellitus with unspecified complications ([facility]) Anxiety and depression ([facility]) Gastro-esophageal reflux disease without esophagitis Edema, unspecified Edema Diabetic polyneuropathy associated with type 2 diabetes mellitus ([facility]) Chronic obstructive pulmonary disease, unspecified ([facility]) Pulmonary emphysema, unspecified emphysema type ([facility]) Bilateral lower extremity edema Tobacco user Tobacco use disorder Hyperpigmentation of skin Other dyschromia Type 2 diabetes mellitus with hyperglycemia, with long-term current use of insulin ([facility])- Primary Encounter for dietary consultation Vitamin D deficiency Primary hypertension ([facility]) Unspecified essential hypertension Insulin long-term use ([facility]) Encounter for long-term (current) use of insulin Hyperlipemia, mixed ([facility]) Mixed hyperlipidemia Microalbuminuria Proteinuria Class 3 severe obesity due to excess calories with serious comorbidity and body mass index (BMI) of 50.0 to 59.9 in adult ([facility]) documented [facility] Diagnosis Hyperlipidemia, unspecified ([facility]) Bilateral lower extremity edema documented in [facility]* Diagnosis Vitamin D deficiency, unspecified documented in [facility]* Diagnosis Obstructive sleep apnea- Primary Obstructive sleep apnea (adult) (pediatric) Pulmonary emphysema, unspecified emphysema type ([facility]) Primary hypertension ([facility]) Unspecified essential hypertension Type 2 diabetes mellitus with complication, with long-term current use of insulin ([facility]) Anxiety and depression (CMS/[facility]) Bilateral lower extremity edema Pulmonary emphysema, unspecified emphysema type (CMS/HCC)- Primary Primary hypertension ([facility]) Unspecified essential hypertension Class 3 severe obesity with serious comorbidity and body mass index (BMI) of 50.0 to 59.9 in adult, unspecified obesity type ([facility]) Obstructive sleep apnea Obstructive sleep apnea (adult) (pediatric) Pulmonary hypertension ([facility]) Other chronic pulmonary heart diseases Tobacco user Tobacco use disorder Cardiomegaly Primary hypertension ([facility])- Primary Unspecified essential hypertension Gastroesophageal reflux disease, unspecified whether esophagitis present Type 2 diabetes mellitus with complication, with long-term current use of insulin ([facility]) Mixed hyperlipidemia ([facility]) Mixed hyperlipidemia Tobacco user Tobacco use disorder Encounter for screening mammogram for malignant neoplasm of breast Chronic obstructive pulmonary disease, unspecified ([facility]) Other specified chronic obstructive pulmonary disease ([facility]) Anxiety and depression ([facility]) Edema, unspecified Edema Hyperlipidemia, unspecified ([facility]) Diabetic polyneuropathy associated with type 2 diabetes mellitus ([facility]) Gout, unspecified cause, unspecified chronicity, unspecified site Non-seasonal allergic rhinitis, unspecified trigger Bilateral lower extremity edema COPD exacerbation ([facility]) Obstructive chronic bronchitis with exacerbation Pulmonary emphysema, unspecified emphysema type ([facility]) Venous insufficiency Unspecified venous (peripheral) insufficiency Candidiasis of breast COPD exacerbation ([facility])- Primary Obstructive chronic bronchitis with exacerbation Pulmonary hypertension ([facility]) Other chronic pulmonary heart diseases Class 3 severe obesity with serious comorbidity and body mass index (BMI) of 50.0 to 59.9 in adult, unspecified obesity type ([facility]) Encounter for subsequent annual wellness visit (AWV) in Medicare patient- Primary Type 2 diabetes mellitus with unspecified complications ([facility]) Pulmonary emphysema, unspecified emphysema type ([facility]) Moderate persistent asthma without complication ([facility]) Primary hypertension ([facility]) Unspecified essential hypertension Type 2 diabetes mellitus with complication, with long-term current use of insulin ([facility]) Class 3 severe obesity with serious comorbidity and body mass index (BMI) of 50.0 to 59.9 in adult, unspecified obesity type ([facility]) Tobacco user Tobacco use disorder Other headache syndrome Malignant neoplasm of cervix uteri, unspecified (CMS/[facility]) Other specified disorders of adrenal gland (CMS/[facility]) Major depressive disorder, single episode, mild (HCC) ([facility]) Major depressive disorder, single episode, mild 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 exposed (CMS/[facility]) Chronic respiratory failure, unspecified whether with hypoxia or hypercapnia (CMS/[facility]) Disorder of adrenal gland, unspecified (CMS/[facility]) Non-pressure chronic ulcer of other part of right lower leg limited to breakdown of skin (CMS/[facility]) Non-recurrent acute suppurative otitis media of left ear without spontaneous rupture of tympanic membrane Primary hypertension ([facility])- Primary Unspecified essential hypertension Insomnia Insomnia, unspecified Type 2 diabetes mellitus with complication, with long-term current use of insulin ([facility]) Non-seasonal allergic rhinitis, unspecified trigger Type 2 diabetes mellitus with unspecified complications (CMS/[facility]) Anxiety and depression ([facility]) Gastro-esophageal reflux disease without esophagitis Edema, unspecified Edema Diabetic polyneuropathy associated with type 2 diabetes mellitus ([facility]) Chronic obstructive pulmonary disease, unspecified (CMS/[facility]) Pulmonary emphysema, unspecified emphysema type ([facility]) Bilateral lower extremity edema Tobacco user Tobacco use disorder Hyperpigmentation of skin Other dyschromia Bilateral lower extremity edema documented [facility] Diagnosis Obstructive sleep apnea- Primary Obstructive sleep apnea (adult) (pediatric) Pulmonary emphysema, unspecified emphysema type ([facility]/HCC) Primary hypertension ([facility]) Unspecified essential hypertension Type 2 diabetes mellitus with complication, with long-term current use of insulin ([facility]) Anxiety and depression ([facility]) Bilateral lower extremity edema Pulmonary emphysema, unspecified emphysema type (CMS/HCC)- Primary Primary hypertension ([facility]) Unspecified essential hypertension Class 3 severe obesity with serious comorbidity and body mass index (BMI) of 50.0 to 59.9 in adult, unspecified obesity type ([facility]) Obstructive sleep apnea Obstructive sleep apnea [...] bronchitis with exacerbation Pulmonary hypertension (CMS/[facility]) Other chronic pulmonary heart diseases Class 3 severe obesity with serious comorbidity and body mass index (BMI) of 50.0 to 59.9 in adult, unspecified obesity type ([facility]) Encounter for subsequent annual wellness visit (AWV) in Medicare patient- Primary Type 2 diabetes mellitus with unspecified complications (CMS/HCC) Pulmonary emphysema, unspecified emphysema type (CMS/HCC) Moderate persistent asthma without complication (CMS/HCC) Primary hypertension (CMS/[facility]) Unspecified essential hypertension Type 2 diabetes mellitus with complication, with long-term current use of insulin (CMS/[facility]) Class 3 severe obesity with serious [...] complication, with long-term current use of insulin ([facility]) Non-seasonal allergic rhinitis, unspecified trigger Type 2 diabetes mellitus with unspecified complications ([facility]) Anxiety and depression ([facility]) Gastro-esophageal reflux disease without esophagitis Edema, unspecified Edema Diabetic polyneuropathy associated with type 2 diabetes mellitus ([facility]) Chronic obstructive pulmonary disease, unspecified ([facility]) Pulmonary emphysema, unspecified emphysema type ([facility]) Bilateral lower extremity edema Tobacco user Tobacco use disorder Hyperpigmentation of skin Other dyschromia Primary hypertension ([facility])- Primary Unspecified essential hypertension Diabetic polyneuropathy associated with type 2 diabetes mellitus ([facility]) Pulmonary emphysema, unspecified emphysema type ([facility]) Critical limb ischemia of right lower extremity ([facility]) PAD (peripheral artery disease) ([facility]) Unspecified peripheral vascular disease Gastroesophageal reflux disease, unspecified whether esophagitis present Bilateral lower extremity edema Venous ulcer of right leg ([facility]) Type 2 diabetes mellitus with complication, with long-term current use of insulin ([facility]) Tobacco user Tobacco use disorder Encounter for smoking cessation counseling Kidney stone Calculus of kidney Adrenal mass 1 cm to 4 cm in diameter ([facility]) Radiculopathy, lumbar region Thoracic or lumbosacral neuritis or radiculitis, unspecified Non-seasonal allergic rhinitis, unspecified trigger Type 2 diabetes mellitus with unspecified complications ([facility]) documented in this encounter [facility] HealthcareEvaluation note* Diagnosis Obstructive sleep apnea- Primary Obstructive sleep apnea (adult) (pediatric) Pulmonary emphysema, unspecified emphysema type ([facility]) Primary hypertension ([facility]) Unspecified essential hypertension Type 2 diabetes mellitus with complication, with long-term current use of insulin ([facility]) Anxiety and depression ([facility]) Bilateral lower extremity edema Pulmonary emphysema, unspecified emphysema type ([facility])- Primary Primary hypertension ([facility]) Unspecified essential hypertension Class 3 severe obesity with serious comorbidity and body mass index (BMI) of 50.0 to 59.9 in adult, unspecified obesity type ([facility]) Obstructive sleep apnea Obstructive sleep apnea (adult) (pediatric) Pulmonary hypertension ([facility]) Other chronic pulmonary heart diseases Tobacco user Tobacco use disorder Cardiomegaly Primary hypertension ([facility])- Primary Unspecified essential hypertension Gastroesophageal reflux [...] to 59.9 in adult, unspecified obesity type ([facility]) Encounter for subsequent annual wellness visit (AWV) in Medicare patient- Primary Type 2 diabetes mellitus with unspecified complications (CMS/HCC) Pulmonary emphysema, unspecified emphysema type (CMS/HCC) Moderate persistent asthma without complication (CMS/HCC) Primary hypertension (CMS/[facility]) Unspecified essential hypertension Type 2 diabetes mellitus with complication, with long-term current use of insulin (CMS/[facility]) Class 3 severe obesity with serious [...] complication, with long-term current use of insulin ([facility]) Non-seasonal allergic rhinitis, unspecified trigger Type 2 diabetes mellitus with unspecified complications ([facility]) Anxiety and depression ([facility]) Gastro-esophageal reflux disease without esophagitis Edema, unspecified Edema Diabetic polyneuropathy associated with type 2 diabetes mellitus ([facility]) Chronic obstructive pulmonary disease, unspecified ([facility]) Pulmonary emphysema, unspecified emphysema type ([facility]) Bilateral lower extremity edema Tobacco user Tobacco use disorder Hyperpigmentation of skin Other dyschromia Primary hypertension ([facility])- Primary Unspecified essential hypertension Diabetic polyneuropathy associated with type 2 diabetes mellitus ([facility]) Pulmonary emphysema, unspecified emphysema type ([facility]) Critical limb ischemia of right lower extremity ([facility]) PAD (peripheral artery disease) ([facility]) Unspecified peripheral vascular disease Gastroesophageal reflux disease, unspecified whether esophagitis present Bilateral lower extremity edema Venous ulcer of right leg ([facility]) Type 2 diabetes mellitus with complication, with long-term current use of insulin ([facility]) Tobacco user Tobacco use disorder Encounter for smoking cessation counseling Kidney stone Calculus of kidney Adrenal mass 1 cm to 4 cm in diameter ([facility]) Radiculopathy, lumbar region Thoracic or lumbosacral neuritis or radiculitis, unspecified Non-seasonal allergic rhinitis, unspecified trigger Type 2 diabetes mellitus with unspecified complications ([facility]) Anxiety and depression ([facility])- Primary Morbid (severe) obesity due to excess calories ([facility]) Body mass index (BMI) 50.0-59.9, adult ([facility]) Malignant neoplasm of cervix uteri, unspecified ([facility]) Diabetic polyneuropathy associated with type 2 diabetes mellitus ([facility] Chronic diastolic heart failure ([facility] Chronic diastolic heart failure Primary hypertension ([facility]) Unspecified essential hypertension 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 ([facility]) Gastroesophageal reflux disease, unspecified whether esophagitis present Bilateral lower extremity edema Type 2 diabetes mellitus with complication, with long-term current use of insulin ([facility]) Tobacco user Tobacco use disorder Mixed hyperlipidemia ([facility]) Mixed hyperlipidemia Gout, unspecified cause, unspecified chronicity, unspecified site Vitamin deficiency Unspecified vitamin deficiency Gastro-esophageal reflux disease without esophagitis Edema, unspecified Edema Hyperlipidemia, unspecified ([facility]) Encounter for smoking cessation counseling Venous ulcer of right leg ([facility]) Antibiotic-induced yeast infection documented in this encounter [facility] HealthcareEvaluation note* Diagnosis Obstructive sleep apnea- Primary Obstructive sleep apnea (adult) (pediatric) Pulmonary emphysema, unspecified emphysema type ([facility]) Primary hypertension ([facility]) Unspecified essential hypertension Type 2 diabetes mellitus with complication, with long-term current use of insulin ([facility]) Anxiety and depression ([facility]) Bilateral lower extremity edema Pulmonary emphysema, unspecified emphysema type ([facility])- Primary Primary hypertension ([facility]) Unspecified essential hypertension Class 3 severe obesity with serious comorbidity and body mass index (BMI) of 50.0 to 59.9 in adult, unspecified obesity type Obstructive sleep apnea Obstructive sleep apnea (adult) (pediatric) Pulmonary hypertension ([facility]) Other chronic pulmonary heart diseases Tobacco user Tobacco use disorder Cardiomegaly Primary hypertension ([facility])- Primary Unspecified essential hypertension Gastroesophageal reflux disease, unspecified whether esophagitis present Type 2 diabetes mellitus with complication, with long-term current use of insulin ([facility]) Mixed hyperlipidemia ([facility]) Mixed hyperlipidemia Tobacco user Tobacco use disorder Encounter for screening mammogram for malignant neoplasm of breast Chronic obstructive pulmonary disease, unspecified Other specified chronic obstructive pulmonary disease Anxiety and depression ([facility]) Edema, unspecified Edema Hyperlipidemia, unspecified ([facility]) Diabetic polyneuropathy associated with type 2 diabetes mellitus ([facility]) Gout, unspecified cause, unspecified chronicity, unspecified site Non-seasonal allergic rhinitis, unspecified trigger Bilateral lower extremity edema COPD exacerbation ([facility]) Obstructive chronic bronchitis with exacerbation Pulmonary emphysema, unspecified emphysema type ([facility]) Venous insufficiency Unspecified venous (peripheral) insufficiency Candidiasis of breast COPD exacerbation ([facility])- Primary Obstructive chronic bronchitis with exacerbation Pulmonary hypertension ([facility]) Other chronic pulmonary heart diseases Class 3 severe obesity with serious comorbidity and body mass index (BMI) of 50.0 to 59.9 in adult, unspecified obesity type Encounter for subsequent annual wellness visit (AWV) in Medicare patient- Primary Type 2 diabetes mellitus with unspecified complications Pulmonary emphysema, unspecified emphysema type ([facility]) Moderate persistent asthma without complication ([facility]) Primary hypertension ([facility]) Unspecified essential hypertension Type 2 diabetes mellitus with complication, with long-term current use of insulin ([facility]) Class 3 severe obesity with serious comorbidity and body mass index (BMI) of 50.0 to 59.9 in adult, unspecified obesity type Tobacco user Tobacco use disorder Other headache syndrome Malignant neoplasm of cervix uteri, unspecified Other specified disorders of adrenal gland Major depressive disorder, single episode, mild (HCC) ([facility]) Major depressive disorder, single episode, mild 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 exposed Chronic respiratory failure, unspecified whether with hypoxia or hypercapnia Disorder of adrenal gland, unspecified Non-pressure chronic ulcer of other part of right lower leg limited to breakdown of skin ([facility]) Non-recurrent acute suppurative otitis media of left ear without spontaneous rupture of tympanic membrane Primary hypertension ([facility])- Primary Unspecified essential hypertension Insomnia Insomnia, unspecified Type 2 diabetes mellitus with complication, with long-term current use of insulin ([facility]) Non-seasonal allergic rhinitis, unspecified trigger Type 2 diabetes mellitus with unspecified complications Anxiety and depression ([facility]) Gastro-esophageal reflux disease without esophagitis Edema, unspecified Edema Diabetic polyneuropathy associated with type 2 diabetes mellitus ([facility]) Chronic obstructive pulmonary disease, unspecified Pulmonary emphysema, unspecified emphysema type (CMS/[facility]) Bilateral lower extremity edema Tobacco user Tobacco use disorder Hyperpigmentation of skin Other dyschromia Primary hypertension ([facility])- Primary Unspecified essential hypertension Diabetic polyneuropathy associated with type 2 diabetes mellitus ([facility]) Pulmonary emphysema, unspecified emphysema type ([facility]) Critical limb ischemia of right lower extremity ([facility]) PAD (peripheral artery disease) ([facility]) Unspecified peripheral vascular disease Gastroesophageal reflux disease, unspecified whether esophagitis present Bilateral lower extremity edema Venous ulcer of right leg ([facility]) Type 2 diabetes mellitus with complication, with long-term current use of insulin ([facility]) Tobacco user Tobacco use disorder Encounter for smoking cessation counseling Kidney stone Calculus of kidney Adrenal mass 1 cm to 4 cm in diameter ([facility]) Radiculopathy, lumbar region Thoracic or lumbosacral neuritis or radiculitis, unspecified Non-seasonal allergic rhinitis, unspecified trigger Type 2 diabetes mellitus with unspecified complications Anxiety and depression ([facility])- Primary Morbid (severe) obesity due to excess calories (CMS/[facility]) Body mass index (BMI) 50.0-59.9, adult ([facility]) Malignant neoplasm of cervix uteri, unspecified Diabetic polyneuropathy associated with type 2 diabetes mellitus ([facility] Chronic diastolic heart failure ([facility] Chronic diastolic heart failure Primary hypertension ([facility]) Unspecified essential hypertension 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 Gastroesophageal reflux disease, unspecified whether esophagitis present Bilateral lower extremity edema Type 2 diabetes mellitus with complication, with long-term current use of insulin ([facility]) Tobacco user Tobacco use disorder Mixed hyperlipidemia ([facility]) Mixed hyperlipidemia Gout, unspecified cause, unspecified chronicity, unspecified site Vitamin deficiency Unspecified vitamin deficiency Gastro-esophageal reflux disease without esophagitis Edema, unspecified Edema Hyperlipidemia, unspecified ([facility]) Encounter for smoking cessation counseling Venous ulcer of right leg ([facility]) Antibiotic-induced yeast infection Type 2 diabetes mellitus with hyperglycemia, with long-term current use of insulin ([facility])- Primary Encounter for dietary consultation Vitamin D deficiency Primary hypertension ([facility]) Unspecified essential hypertension Insulin long-term use ([facility]) Encounter for long-term (current) use of insulin Hyperlipemia, mixed ([facility]) Mixed hyperlipidemia Microalbuminuria Proteinuria Class 3 severe obesity due to excess calories with serious comorbidity and body mass index (BMI) of 50.0 to 59.9 in adult documented in this encounter [facility] HealthcareEvaluation note* Diagnosis Obstructive sleep apnea- Primary Obstructive sleep apnea (adult) (pediatric) Pulmonary emphysema, unspecified emphysema type ([facility]) Primary hypertension ([facility]) Unspecified essential hypertension Type 2 diabetes mellitus with complication, with long-term current use of insulin ([facility]) Anxiety and depression ([facility]) Bilateral lower extremity edema Pulmonary emphysema, unspecified emphysema type ([facility])- Primary Primary hypertension ([facility]) Unspecified essential hypertension Class 3 severe obesity with serious comorbidity and body mass index (BMI) of 50.0 to 59.9 in adult, unspecified obesity type Obstructive sleep apnea Obstructive sleep apnea (adult) (pediatric) Pulmonary hypertension ([facility]) Other chronic pulmonary heart diseases Tobacco user Tobacco use disorder Cardiomegaly Primary hypertension ([facility])- Primary Unspecified essential hypertension Gastroesophageal reflux disease, unspecified whether esophagitis present Type 2 diabetes mellitus with complication, with long-term current use of insulin (CMS/[facility]) Mixed hyperlipidemia (CMS/[facility]) Mixed hyperlipidemia Tobacco user Tobacco use disorder Encounter for screening mammogram for malignant neoplasm of breast Chronic obstructive pulmonary disease, unspecified Other specified chronic obstructive pulmonary disease Anxiety and depression (CMS/[facility]) Edema, unspecified Edema Hyperlipidemia, unspecified (CMS/[facility]) Diabetic polyneuropathy associated with type 2 diabetes mellitus (CMS/[facility]) Gout, unspecified cause, unspecified chronicity, unspecified site Non-seasonal allergic rhinitis, unspecified trigger Bilateral lower extremity edema COPD exacerbation (CMS/[facility]) Obstructive chronic bronchitis with exacerbation Pulmonary emphysema, unspecified emphysema type (CMS/[facility]) Venous insufficiency Unspecified venous (peripheral) insufficiency Candidiasis of breast COPD exacerbation (CMS/[facility])- Primary Obstructive chronic bronchitis with exacerbation Pulmonary hypertension (CMS/[facility]) Other chronic pulmonary heart diseases Class 3 severe obesity with serious comorbidity and body mass index (BMI) of 50.0 to 59.9 in adult, unspecified obesity type Encounter for subsequent annual wellness visit (AWV) in Medicare patient- Primary Type 2 diabetes mellitus with unspecified complications Pulmonary emphysema, unspecified emphysema type (CMS/[facility]) Moderate persistent asthma without complication (CMS/[facility]) Primary hypertension (CMS/[facility]) Unspecified essential hypertension Type 2 diabetes mellitus with complication, with long-term current use of insulin ([facility]) Class 3 severe obesity with serious comorbidity and body mass index (BMI) of 50.0 to 59.9 in adult, unspecified obesity type Tobacco user Tobacco use disorder Other headache syndrome Malignant neoplasm of cervix uteri, unspecified Other specified disorders of adrenal gland Major depressive disorder, single episode, mild (HCC) ([facility]) Major depressive disorder, single episode, mild 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 exposed Chronic respiratory failure, unspecified whether with hypoxia or hypercapnia Disorder of adrenal gland, unspecified Non-pressure chronic ulcer of other part of right lower leg limited to breakdown of skin (CMS/[facility]) Non-recurrent acute suppurative otitis media of left ear without spontaneous rupture of tympanic membrane Primary hypertension (CMS/[facility])- Primary Unspecified essential hypertension Insomnia Insomnia, unspecified Type 2 diabetes mellitus with complication, with long-term current use of insulin ([facility]) Non-seasonal allergic rhinitis, unspecified trigger Type 2 diabetes mellitus with unspecified complications Anxiety and depression ([facility]) Gastro-esophageal reflux disease without esophagitis Edema, unspecified Edema Diabetic polyneuropathy associated with type 2 diabetes mellitus ([facility]) Chronic obstructive pulmonary disease, unspecified Pulmonary emphysema, unspecified emphysema type ([facility]) Bilateral lower extremity edema Tobacco user Tobacco use disorder Hyperpigmentation of skin Other dyschromia Primary hypertension ([facility])- Primary Unspecified essential hypertension Diabetic polyneuropathy associated with type 2 diabetes mellitus ([facility]) Pulmonary emphysema, unspecified emphysema type ([facility]) Critical limb ischemia of right lower extremity ([facility]) PAD (peripheral artery disease) ([facility]) Unspecified peripheral vascular disease Gastroesophageal reflux disease, unspecified whether esophagitis present Bilateral lower extremity edema Venous ulcer of right leg ([facility]) Type 2 diabetes mellitus with complication, with long-term current use of insulin ([facility]) Tobacco user Tobacco use disorder Encounter for smoking cessation counseling Kidney stone Calculus of kidney Adrenal mass 1 cm to 4 cm in diameter ([facility]) Radiculopathy, lumbar region Thoracic or lumbosacral neuritis or radiculitis, unspecified Non-seasonal allergic rhinitis, unspecified trigger Type 2 diabetes mellitus with unspecified complications Anxiety and depression ([facility])- Primary Morbid (severe) obesity due to excess calories ([facility]) Body mass index (BMI) 50.0-59.9, adult ([facility]) Malignant neoplasm of cervix uteri, unspecified Diabetic polyneuropathy associated with type 2 diabetes mellitus ([facility] Chronic diastolic heart failure ([facility] Chronic diastolic heart failure Primary hypertension ([facility]) Unspecified essential hypertension 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 Gastroesophageal reflux disease, unspecified whether esophagitis present Bilateral lower extremity edema Type 2 diabetes mellitus with complication, with long-term current use of insulin ([facility]) Tobacco user Tobacco use disorder Mixed hyperlipidemia ([facility]) Mixed hyperlipidemia Gout, unspecified cause, unspecified chronicity, unspecified site Vitamin deficiency Unspecified vitamin deficiency Gastro-esophageal reflux disease without esophagitis Edema, unspecified Edema Hyperlipidemia, unspecified ([facility]) Encounter for smoking cessation counseling Venous ulcer of right leg ([facility]) Antibiotic-induced yeast infection Chronic obstructive pulmonary disease, unspecified documented in this encounter [facility] HealthcareEvaluation note* Diagnosis Obstructive sleep apnea- Primary Obstructive sleep apnea (adult) (pediatric) Pulmonary emphysema, unspecified emphysema type ([facility]) Primary hypertension ([facility]) Unspecified essential hypertension Type 2 diabetes mellitus with complication, with long-term current use of insulin ([facility]) Anxiety and depression ([facility]) Bilateral lower extremity edema Pulmonary emphysema, unspecified emphysema type ([facility])- Primary Primary hypertension ([facility]) Unspecified essential hypertension Class 3 severe obesity with serious comorbidity and body mass index (BMI) of 50.0 to 59.9 in adult, unspecified obesity type Obstructive sleep apnea Obstructive sleep apnea (adult) (pediatric) Pulmonary hypertension ([facility]) Other chronic pulmonary heart diseases Tobacco user Tobacco use disorder Cardiomegaly Primary hypertension ([facility])- Primary Unspecified essential hypertension Gastroesophageal reflux disease, unspecified whether esophagitis present Type 2 diabetes mellitus with complication, with long-term current use of insulin ([facility]) Mixed hyperlipidemia ([facility]) Mixed hyperlipidemia Tobacco user Tobacco use disorder Encounter for screening mammogram for malignant neoplasm of breast Chronic obstructive pulmonary disease, unspecified Other specified chronic obstructive pulmonary disease Anxiety and depression ([facility]) Edema, unspecified Edema Hyperlipidemia, unspecified ([facility]) Diabetic polyneuropathy associated with type 2 diabetes mellitus ([facility]) Gout, unspecified cause, unspecified chronicity, unspecified site Non-seasonal allergic rhinitis, unspecified trigger Bilateral lower extremity edema COPD exacerbation ([facility]) Obstructive chronic bronchitis with exacerbation Pulmonary emphysema, unspecified emphysema type ([facility]) Venous insufficiency Unspecified venous (peripheral) insufficiency Candidiasis of breast COPD exacerbation ([facility])- Primary Obstructive chronic bronchitis with exacerbation Pulmonary hypertension ([facility]) Other chronic pulmonary heart diseases Class 3 severe obesity with serious comorbidity and body mass index (BMI) of 50.0 to 59.9 in adult, unspecified obesity type Encounter for subsequent annual wellness visit (AWV) in Medicare patient- Primary Type 2 diabetes mellitus with unspecified complications Pulmonary emphysema, unspecified emphysema type ([facility]) Moderate persistent asthma without complication ([facility]) Primary hypertension ([facility]) Unspecified essential hypertension Type 2 diabetes mellitus with complication, with long-term current use of insulin ([facility]) Class 3 severe obesity with serious comorbidity and body mass index (BMI) of 50.0 to 59.9 in adult, unspecified obesity type Tobacco user Tobacco use disorder Other headache syndrome Malignant neoplasm of cervix uteri, unspecified Other specified disorders of adrenal gland Major depressive disorder, single episode, mild (HCC) ([facility]) Major depressive disorder, single episode, mild 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 exposed Chronic respiratory failure, unspecified whether with hypoxia or hypercapnia Disorder of adrenal gland, unspecified Non-pressure chronic ulcer of other part of right lower leg limited to breakdown of skin ([facility]) Non-recurrent acute suppurative otitis media of left ear without spontaneous rupture of tympanic membrane Primary hypertension ([facility])- Primary Unspecified essential hypertension Insomnia Insomnia, unspecified Type 2 diabetes mellitus with complication, with long-term current use of insulin ([facility]) Non-seasonal allergic rhinitis, unspecified trigger Type 2 diabetes mellitus with unspecified complications Anxiety and depression ([facility]) Gastro-esophageal reflux disease without esophagitis Edema, unspecified Edema Diabetic polyneuropathy associated with type 2 diabetes mellitus ([facility]) Chronic obstructive pulmonary disease, unspecified Pulmonary emphysema, unspecified emphysema type ([facility]) Bilateral lower extremity edema Tobacco user Tobacco use disorder Hyperpigmentation of skin Other dyschromia Primary hypertension ([facility])- Primary Unspecified essential hypertension Diabetic polyneuropathy associated with type 2 diabetes mellitus ([facility]) Pulmonary emphysema, unspecified emphysema type ([facility]) Critical limb ischemia of right lower extremity ([facility]) PAD (peripheral artery disease) ([facility]) Unspecified peripheral vascular disease Gastroesophageal reflux disease, unspecified whether esophagitis present Bilateral lower extremity edema Venous ulcer of right leg ([facility]) Type 2 diabetes mellitus with complication, with long-term current use of insulin ([facility]) Tobacco user Tobacco use disorder Encounter for smoking cessation counseling Kidney stone Calculus of kidney Adrenal mass 1 cm to 4 cm in diameter ([facility]) Radiculopathy, lumbar region Thoracic or lumbosacral neuritis or radiculitis, unspecified Non-seasonal allergic rhinitis, unspecified trigger Type 2 diabetes mellitus with unspecified complications Anxiety and depression ([facility])- Primary Morbid (severe) obesity due to excess calories ([facility]) Body mass index (BMI) 50.0-59.9, adult ([facility]) Malignant neoplasm of cervix uteri, unspecified Diabetic polyneuropathy associated with type 2 diabetes mellitus ([facility]) Chronic diastolic heart failure ([facility]) Chronic diastolic heart failure Primary hypertension ([facility]) Unspecified essential hypertension 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 Gastroesophageal reflux disease, unspecified whether esophagitis present Bilateral lower extremity edema Type 2 diabetes mellitus with complication, with long-term current use of insulin ([facility]) Tobacco user Tobacco use disorder Mixed hyperlipidemia ([facility]) Mixed hyperlipidemia Gout, unspecified cause, unspecified chronicity, unspecified site Vitamin deficiency Unspecified vitamin deficiency Gastro-esophageal reflux disease without esophagitis Edema, unspecified Edema Hyperlipidemia, unspecified ([facility]) Encounter for smoking cessation counseling Venous ulcer of right leg ([facility]) Antibiotic-induced yeast infection Primary hypertension ([facility])- Primary Unspecified essential hypertension Diabetic polyneuropathy associated with type 2 diabetes mellitus ([facility]) Chronic diastolic heart failure ([facility]) Chronic diastolic heart failure Bilateral lower extremity edema Morbid (severe) obesity due to excess calories ([facility]) Type 2 diabetes mellitus with complication, with long-term current use of insulin ([facility]) Anxiety and depression ([facility]) Cigarette nicotine dependence without complication Encounter for screening mammogram for malignant neoplasm of breast Insomnia Insomnia, unspecified Non-seasonal allergic rhinitis, unspecified trigger Type 2 diabetes mellitus with unspecified complications Vitamin D deficiency, unspecified Gastro-esophageal reflux disease without esophagitis PAD (peripheral artery disease) ([facility]) Unspecified peripheral vascular disease Gastroesophageal reflux disease, unspecified whether esophagitis present Venous ulcer of right leg ([facility]) documented in this encounter [facility] HealthcareEvaluation note* Diagnosis Obstructive sleep apnea- Primary Obstructive sleep apnea (adult) (pediatric) Pulmonary emphysema, unspecified emphysema type (HCC) Primary hypertension Unspecified essential hypertension Type 2 diabetes mellitus with complication, with long-term current use of insulin ([facility]) Anxiety and depression Bilateral lower extremity edema Pulmonary emphysema, unspecified emphysema type (HCC)- Primary Primary hypertension Unspecified essential hypertension Class 3 severe obesity with serious comorbidity and body mass index (BMI) of 50.0 to 59.9 in adult, unspecified obesity type ([facility]) Obstructive sleep apnea Obstructive sleep apnea (adult) (pediatric) Pulmonary hypertension (HCC) Other chronic pulmonary heart diseases Tobacco user Tobacco use disorder Cardiomegaly Primary hypertension- Primary Unspecified essential hypertension Gastroesophageal reflux disease, unspecified whether esophagitis present Type 2 diabetes mellitus with complication, with long-term current use of insulin ([facility]) Mixed hyperlipidemia Mixed hyperlipidemia Tobacco user [...] to 59.9 in adult, unspecified obesity type ([facility]) Encounter for subsequent annual wellness visit (AWV) in Medicare patient- Primary Type 2 diabetes mellitus with unspecified complications (HCC) Pulmonary emphysema, unspecified emphysema type (HCC) Moderate persistent asthma without complication (HCC) Primary hypertension Unspecified essential hypertension Type 2 diabetes mellitus with complication, with long-term current use of insulin ([facility]) Class 3 severe obesity with serious comorbidity and body mass index (BMI) of 50.0 to 59.9 in adult, unspecified obesity type ([facility]) Tobacco user Tobacco use disorder Other [...] with type 2 diabetes mellitus ([facility]) Pulmonary emphysema, unspecified emphysema type ([facility]) Critical limb ischemia of right lower extremity ([facility]) PAD (peripheral artery disease) Unspecified peripheral vascular disease Gastroesophageal reflux disease, unspecified whether esophagitis present Bilateral lower extremity edema Venous ulcer of right leg ([facility]) Type 2 diabetes mellitus with complication, with long-term current use of insulin ([facility]) Tobacco user Tobacco use disorder Encounter for smoking cessation counseling Kidney stone Calculus of kidney Adrenal mass 1 cm to 4 cm in diameter ([facility]) Radiculopathy, lumbar region Thoracic or lumbosacral neuritis or radiculitis, unspecified Non-seasonal allergic rhinitis, unspecified trigger Type 2 diabetes mellitus with unspecified complications ([facility]) Anxiety and depression- Primary Morbid (severe) obesity due to excess calories ([facility]) Body mass index (BMI) 50.0-59.9, adult ([facility]) Malignant neoplasm of cervix uteri, unspecified ([facility]) Diabetic polyneuropathy associated with type 2 diabetes mellitus ([facility]) Chronic diastolic heart failure (HCC) Chronic diastolic heart failure Primary hypertension Unspecified essential hypertension 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 ([facility]) Gastroesophageal reflux disease, unspecified whether esophagitis present Bilateral lower extremity edema Type 2 diabetes mellitus with complication, with long-term current use of insulin ([facility]) Tobacco user Tobacco use disorder Mixed hyperlipidemia Mixed hyperlipidemia Gout, unspecified cause, unspecified chronicity, unspecified site Vitamin deficiency Unspecified vitamin deficiency Gastro-esophageal reflux disease without esophagitis Edema, unspecified Edema Hyperlipidemia, unspecified Encounter for smoking cessation counseling Venous ulcer of right leg ([facility]) Antibiotic-induced yeast infection Primary hypertension- Primary Unspecified essential hypertension Diabetic polyneuropathy associated with type 2 diabetes mellitus (HCC) Chronic diastolic heart failure (HCC) Chronic diastolic heart failure Bilateral lower extremity edema Morbid (severe) obesity due to excess calories ([facility]) Type 2 diabetes mellitus with complication, with long-term current use of insulin ([facility]) Anxiety and depression Cigarette nicotine dependence without complication Encounter for screening mammogram for malignant neoplasm of breast Insomnia Insomnia, unspecified Non-seasonal allergic rhinitis, unspecified trigger Type 2 diabetes mellitus with unspecified complications ([facility]) Vitamin D deficiency, unspecified Gastro-esophageal reflux [...] Morbid (severe) obesity due to excess calories ([facility]) Type 2 diabetes mellitus with complication, with long-term current use of insulin ([facility]) Anxiety and depression Fever, unspecified fever cause Hyperlipidemia, unspecified Tobacco user Tobacco use disorder Encounter for smoking cessation counseling documented in this encounter [facility] HealthcareEvaluation note* Diagnosis Obstructive sleep apnea- Primary Obstructive sleep apnea (adult) (pediatric) Pulmonary emphysema, unspecified emphysema type ([facility]/HCC) Primary hypertension ([facility]) Unspecified essential hypertension Type 2 diabetes mellitus with complication, with long-term current use of insulin ([facility]) Anxiety and depression ([facility]) Bilateral lower extremity edema Pulmonary emphysema, unspecified emphysema type ([facility]/HCC)- Primary Primary hypertension ([facility]) Unspecified essential hypertension Class 3 severe obesity with serious comorbidity and body mass index (BMI) of 50.0 to 59.9 in adult, unspecified obesity type Obstructive sleep apnea Obstructive sleep apnea (adult) (pediatric) Pulmonary hypertension ([facility]) Other chronic pulmonary heart diseases Tobacco user Tobacco use disorder Cardiomegaly Primary hypertension ([facility])- Primary Unspecified essential hypertension Gastroesophageal reflux disease, unspecified whether esophagitis present Type 2 diabetes mellitus with complication, with long-term current use of insulin ([facility]) Mixed hyperlipidemia ([facility]) Mixed hyperlipidemia Tobacco user Tobacco use disorder Encounter for screening mammogram for malignant neoplasm of breast Chronic obstructive pulmonary disease, unspecified Other specified chronic obstructive pulmonary disease Anxiety and depression ([facility]) Edema, unspecified Edema Hyperlipidemia, unspecified ([facility]) Diabetic polyneuropathy associated with type 2 diabetes mellitus ([facility]) Gout, unspecified cause, unspecified chronicity, unspecified site Non-seasonal allergic rhinitis, unspecified trigger Bilateral lower extremity edema COPD exacerbation ([facility]) Obstructive chronic bronchitis with exacerbation Pulmonary emphysema, unspecified emphysema type ([facility]/HCC) Venous insufficiency Unspecified venous (peripheral) insufficiency Candidiasis of breast COPD exacerbation ([facility])- Primary Obstructive chronic bronchitis with exacerbation Pulmonary hypertension ([facility]) Other chronic pulmonary heart diseases Class 3 severe obesity with serious comorbidity and body mass index (BMI) of 50.0 to 59.9 in adult, unspecified obesity type Encounter for subsequent annual wellness visit (AWV) in Medicare patient- Primary Type 2 diabetes mellitus with unspecified complications Pulmonary emphysema, unspecified emphysema type ([facility]) Moderate persistent asthma without complication (CMS/HCC) Primary hypertension ([facility]) Unspecified essential hypertension Type 2 diabetes mellitus with complication, with long-term current use of insulin ([facility]) Class 3 severe obesity with serious comorbidity and body mass index (BMI) of 50.0 to 59.9 in adult, unspecified obesity type Tobacco user Tobacco use disorder Other headache syndrome Malignant neoplasm of cervix uteri, unspecified Other specified disorders of adrenal gland Major depressive disorder, single episode, mild (HCC) ([facility]) Major depressive disorder, single episode, mild 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 exposed Chronic respiratory failure, unspecified whether with hypoxia or hypercapnia Disorder of adrenal gland, unspecified Non-pressure chronic ulcer of other part of right lower leg limited to breakdown of skin ([facility]) Non-recurrent acute suppurative otitis media of left ear without spontaneous rupture of tympanic membrane Primary hypertension ([facility])- Primary Unspecified essential hypertension Insomnia Insomnia, unspecified Type 2 diabetes mellitus with complication, with long-term current use of insulin ([facility]) Non-seasonal allergic rhinitis, unspecified trigger Type 2 diabetes mellitus with unspecified complications Anxiety and depression ([facility]) Gastro-esophageal reflux disease without esophagitis Edema, unspecified Edema Diabetic polyneuropathy associated with type 2 diabetes mellitus ([facility]) Chronic obstructive pulmonary disease, unspecified Pulmonary emphysema, unspecified emphysema type ([facility]/HCC) Bilateral lower extremity edema Tobacco user Tobacco use disorder Hyperpigmentation of skin Other dyschromia Primary hypertension (CMS/HCC)- Primary Unspecified essential hypertension Diabetic polyneuropathy associated with type 2 diabetes mellitus (CMS/[facility]) Pulmonary emphysema, unspecified emphysema type (CMS/HCC) Critical limb ischemia of right lower extremity ([facility]) PAD (peripheral artery disease) ([facility]) Unspecified peripheral vascular disease Gastroesophageal reflux disease, unspecified whether esophagitis present Bilateral lower extremity edema Venous ulcer of right leg ([facility]) Type 2 diabetes mellitus with complication, with long-term current use of insulin ([facility]) Tobacco user Tobacco use disorder Encounter for smoking cessation counseling Kidney stone Calculus of kidney Adrenal mass 1 cm to 4 cm in diameter ([facility]) Radiculopathy, lumbar region Thoracic or lumbosacral neuritis or radiculitis, unspecified Non-seasonal allergic rhinitis, unspecified trigger Type 2 diabetes mellitus with unspecified complications Anxiety and depression ([facility])- Primary Morbid (severe) obesity due to excess calories ([facility] [facility]) Body mass index (BMI) 50.0-59.9, adult ([facility]) Malignant neoplasm of cervix uteri, unspecified Diabetic polyneuropathy associated with type 2 diabetes mellitus ([facility]) Chronic diastolic heart failure ([facility]) Chronic diastolic heart failure Primary hypertension ([facility]) Unspecified essential hypertension 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 Gastroesophageal reflux disease, unspecified whether esophagitis present Bilateral lower extremity edema Type 2 diabetes mellitus with complication, with long-term current use of insulin ([facility]) Tobacco user Tobacco use disorder Mixed hyperlipidemia ([facility]) Mixed hyperlipidemia Gout, unspecified cause, unspecified chronicity, unspecified site Vitamin deficiency Unspecified vitamin deficiency Gastro-esophageal reflux disease without esophagitis Edema, unspecified Edema Hyperlipidemia, unspecified ([facility]) Encounter for smoking cessation counseling Venous ulcer of right leg ([facility]) Antibiotic-induced yeast infection Primary hypertension ([facility] Primary Unspecified essential hypertension Diabetic polyneuropathy associated with type 2 diabetes mellitus ([facility]) Chronic diastolic heart failure ([facility]) Chronic diastolic heart failure Bilateral lower extremity edema Morbid (severe) obesity due to excess calories ([facility]) Type 2 diabetes mellitus with complication, with long-term current use of insulin ([facility]) Anxiety and depression ([facility]) Cigarette nicotine dependence without complication Encounter for screening mammogram for malignant neoplasm of breast Insomnia Insomnia, unspecified Non-seasonal allergic rhinitis, unspecified trigger Type 2 diabetes mellitus with unspecified complications Vitamin D deficiency, unspecified Gastro-esophageal reflux disease without esophagitis PAD (peripheral artery disease) ([facility]) Unspecified peripheral vascular disease Gastroesophageal reflux disease, unspecified whether esophagitis present Venous ulcer of right leg ([facility]) Cellulitis of left lower extremity- Primary COPD exacerbation ([facility]) Obstructive chronic bronchitis with exacerbation Primary hypertension ([facility]) Unspecified essential hypertension Pulmonary hypertension ([facility]) Other chronic pulmonary heart diseases Morbid (severe) obesity due to excess calories ([facility]) Type 2 diabetes mellitus with complication, with long-term current use of insulin (CMS/HCC) Anxiety and depression ([facility]) Fever, unspecified fever cause documented in this encounter [facility] HealthcareEvaluation note* Diagnosis Obstructive sleep apnea- [...] to 59.9 in adult, unspecified obesity type ([facility]) Obstructive sleep apnea Obstructive sleep apnea [...] to 59.9 in adult, unspecified obesity type ([facility]) Encounter for subsequent annual wellness visit [...] to 59.9 in adult, unspecified obesity type ([facility]) Tobacco user Tobacco use disorder Other headache syndrome Malignant neoplasm of cervix uteri, unspecified ([facility]) Other specified disorders of adrenal gland ([facility]) Major depressive disorder, single episode, mild Major depressive disorder, single episode, mild 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 exposed ([facility]) Chronic respiratory failure, unspecified whether with hypoxia or hypercapnia ([facility]) Disorder of adrenal gland, unspecified ([facility]) Non-pressure chronic ulcer of other part of right lower leg limited to breakdown of skin ([facility]) Non-recurrent acute suppurative otitis media of left ear without spontaneous rupture of tympanic membrane Primary hypertension- Primary Unspecified essential hypertension Insomnia Insomnia, unspecified Type 2 diabetes mellitus with complication, with long-term current use of insulin ([facility]) Non-seasonal allergic rhinitis, unspecified trigger Type 2 diabetes mellitus with unspecified complications ([facility]) Anxiety and depression Gastro-esophageal reflux disease without esophagitis Edema, unspecified Edema Diabetic polyneuropathy associated with type 2 diabetes mellitus ([facility]) Chronic obstructive pulmonary disease, unspecified ([facility]) Pulmonary emphysema, unspecified emphysema type ([facility]) Bilateral lower extremity edema Tobacco user Tobacco use disorder Hyperpigmentation of skin Other dyschromia Primary hypertension- Primary Unspecified essential hypertension Diabetic polyneuropathy associated with type 2 diabetes mellitus ([facility]) Pulmonary emphysema, unspecified emphysema type ([facility]) Critical limb ischemia of right lower extremity ([facility]) PAD (peripheral artery disease) Unspecified peripheral vascular disease Gastroesophageal reflux disease, unspecified whether esophagitis present Bilateral lower extremity edema Venous ulcer of right leg ([facility]) Type 2 diabetes mellitus with complication, with long-term current use of insulin ([facility]) Tobacco user Tobacco use disorder Encounter for smoking cessation counseling Kidney stone Calculus of kidney Adrenal mass 1 cm to 4 cm in diameter ([facility]) Radiculopathy, lumbar region Thoracic or lumbosacral neuritis or radiculitis, unspecified Non-seasonal allergic rhinitis, unspecified trigger Type 2 diabetes mellitus with unspecified complications ([facility]) Anxiety and depression- Primary Morbid (severe) obesity due to excess calories ([facility]) Body mass index (BMI) 50.0-59.9, adult ([facility]) Malignant neoplasm of cervix uteri, unspecified ([facility]) Diabetic polyneuropathy associated with type 2 diabetes mellitus ([facility]) Chronic diastolic heart failure ([facility]) Chronic diastolic heart failure Primary hypertension [...] Morbid (severe) obesity due to excess calories ([facility]) Type 2 diabetes mellitus with complication, [...] Morbid (severe) obesity due to excess calories ([facility]) Type 2 diabetes mellitus with complication, [...] mellitus (HCC) Pulmonary emphysema, unspecified emphysema type ([facility]) Moderate persistent asthma without complication (HCC) Insomnia Insomnia, unspecified Non-seasonal allergic rhinitis, unspecified trigger Type 2 diabetes mellitus with unspecified complications (HCC) Anxiety and depression Antibiotic-induced yeast infection Chronic obstructive pulmonary disease, unspecified (HCC) Hyperlipidemia, unspecified Vaginal yeast infection Candidiasis of vulva and vagina Morbid (severe) obesity due to excess calories ([facility]) Type 2 diabetes mellitus with hyperglycemia, with long-term current use of insulin (HCC) documented in this encounter [facility] HealthcareEvaluation note* Diagnosis Obstructive sleep apnea- [...] to 59.9 in adult, unspecified obesity type ([facility]) Obstructive sleep apnea Obstructive sleep apnea (adult) [...] to 59.9 in adult, unspecified obesity type ([facility]) Encounter for subsequent annual wellness visit [...] to 59.9 in adult, unspecified obesity type ([facility]) Tobacco user Tobacco use disorder Other headache syndrome Malignant neoplasm of cervix uteri, unspecified ([facility]) Other specified disorders of adrenal gland ([facility]) Major depressive disorder, single episode, mild Major depressive disorder, single episode, mild 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 exposed ([facility]) Chronic respiratory failure, unspecified whether with hypoxia or hypercapnia ([facility]) Disorder of adrenal gland, unspecified ([facility]) Non-pressure chronic ulcer of other part of right lower leg limited to breakdown of skin ([facility]) Non-recurrent acute suppurative otitis media of left ear without spontaneous rupture of tympanic membrane Primary hypertension- Primary Unspecified essential hypertension Insomnia Insomnia, unspecified Type 2 diabetes mellitus with complication, with long-term current use of insulin ([facility]) Non-seasonal allergic rhinitis, unspecified trigger Type 2 diabetes mellitus with unspecified complications ([facility]) Anxiety and depression Gastro-esophageal reflux disease without esophagitis Edema, unspecified Edema Diabetic polyneuropathy associated with type 2 diabetes mellitus ([facility]) Chronic obstructive pulmonary disease, unspecified ([facility]) Pulmonary emphysema, unspecified emphysema type ([facility]) Bilateral lower extremity edema Tobacco user Tobacco use disorder Hyperpigmentation of skin Other dyschromia Primary hypertension- Primary Unspecified essential hypertension Diabetic polyneuropathy associated with type 2 diabetes mellitus ([facility]) Pulmonary emphysema, unspecified emphysema type ([facility]) Critical limb ischemia of right lower extremity ([facility]) PAD (peripheral artery disease) Unspecified peripheral vascular disease Gastroesophageal reflux disease, unspecified whether esophagitis present Bilateral lower extremity edema Venous ulcer of right leg ([facility]) Type 2 diabetes mellitus with complication, with long-term current use of insulin ([facility]) Tobacco user Tobacco use disorder Encounter for smoking cessation counseling Kidney stone Calculus of kidney Adrenal mass 1 cm to 4 cm in diameter ([facility]) Radiculopathy, lumbar region Thoracic or lumbosacral neuritis or radiculitis, unspecified Non-seasonal allergic rhinitis, unspecified trigger Type 2 diabetes mellitus with unspecified complications ([facility]) Anxiety and depression- Primary Morbid (severe) obesity due to excess calories ([facility]) Body mass index (BMI) 50.0-59.9, adult ([facility]) Malignant neoplasm of cervix uteri, unspecified ([facility]) Diabetic polyneuropathy associated with type 2 diabetes mellitus ([facility]) Chronic diastolic heart failure (HCC) Chronic [...] Morbid (severe) obesity due to excess calories ([facility]) Type 2 diabetes mellitus with complication, with long-term current use of insulin ([facility]) Anxiety and depression Cigarette nicotine dependence [...] Morbid (severe) obesity due to excess calories ([facility]) Type 2 diabetes mellitus with complication, with long-term current use of insulin ([facility]) Anxiety and depression Fever, unspecified fever [...] Morbid (severe) obesity due to excess calories ([facility]) Encounter for dietary consultation- Primary Type 2 diabetes mellitus with hyperglycemia, with long-term current use of insulin ([facility]) Vitamin D deficiency Primary hypertension Unspecified essential hypertension Insulin long-term use ([facility]) Encounter for long-term (current) use of insulin Hyperlipemia, mixed Mixed hyperlipidemia Microalbuminuria Proteinuria Class 3 severe obesity due to excess calories with serious comorbidity and body mass index (BMI) of 50.0 to 59.9 in adult ([facility]) documented in this encounter [facility] HealthcareEvaluation note* Diagnosis Obstructive sleep apnea- [...] to 59.9 in adult, unspecified obesity type ([facility]) Obstructive sleep apnea Obstructive sleep apnea (adult) [...] to 59.9 in adult, unspecified obesity type ([facility]) Encounter for subsequent annual wellness visit (AWV) in Medicare patient- Primary Type 2 diabetes mellitus with unspecified complications (HCC) Pulmonary emphysema, unspecified emphysema type (HCC) Moderate persistent asthma without complication (HCC) Primary hypertension Unspecified essential hypertension Type 2 diabetes mellitus with complication, with long-term current use of insulin ([facility]) Class 3 severe obesity with serious comorbidity and body mass index (BMI) of 50.0 to 59.9 in adult, unspecified obesity type ([facility]) Tobacco user Tobacco use disorder Other headache syndrome Malignant neoplasm of cervix uteri, unspecified ([facility]) Other specified disorders of adrenal gland ([facility]) Major depressive disorder, single episode, mild Major depressive disorder, single episode, mild 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 exposed ([facility]) Chronic respiratory failure, unspecified whether with hypoxia or hypercapnia ([facility]) Disorder of adrenal gland, unspecified ([facility]) Non-pressure chronic ulcer of other part of right lower leg limited to breakdown of skin ([facility]) Non-recurrent acute suppurative otitis media of left ear without spontaneous rupture of tympanic membrane Primary hypertension- Primary Unspecified essential hypertension Insomnia Insomnia, unspecified Type 2 diabetes mellitus with complication, with long-term current use of insulin ([facility]) Non-seasonal allergic rhinitis, unspecified trigger Type 2 diabetes mellitus with unspecified complications ([facility]) Anxiety and depression Gastro-esophageal reflux disease without esophagitis Edema, unspecified Edema Diabetic polyneuropathy associated with type 2 diabetes mellitus ([facility]) Chronic obstructive pulmonary disease, unspecified ([facility]) Pulmonary emphysema, unspecified emphysema type ([facility]) Bilateral lower extremity edema Tobacco user Tobacco use disorder Hyperpigmentation of skin Other dyschromia Primary hypertension- Primary Unspecified essential hypertension Diabetic polyneuropathy associated with type 2 diabetes mellitus ([facility]) Pulmonary emphysema, unspecified emphysema type ([facility]) Critical limb ischemia of right lower extremity ([facility]) PAD (peripheral artery disease) Unspecified peripheral vascular disease Gastroesophageal reflux disease, unspecified whether esophagitis present Bilateral lower extremity edema Venous ulcer of right leg ([facility]) Type 2 diabetes mellitus with complication, with long-term current use of insulin ([facility]) Tobacco user Tobacco use disorder Encounter for smoking cessation counseling Kidney stone Calculus of kidney Adrenal mass 1 cm to 4 cm in diameter ([facility]) Radiculopathy, lumbar region Thoracic or lumbosacral neuritis or radiculitis, unspecified Non-seasonal allergic rhinitis, unspecified trigger Type 2 diabetes mellitus with unspecified complications ([facility]) Anxiety and depression- Primary Morbid (severe) obesity due to excess calories ([facility]) Body mass index (BMI) 50.0-59.9, adult ([facility]) Malignant neoplasm of cervix uteri, unspecified [...] Venous ulcer of right leg ([facility]) Antibiotic-induced yeast infection Primary hypertension- Primary Unspecified essential hypertension Diabetic polyneuropathy associated with type 2 diabetes mellitus (HCC) Chronic diastolic heart failure (HCC) Chronic diastolic heart failure Bilateral lower extremity edema Morbid (severe) obesity due to excess calories ([facility]) Type 2 diabetes mellitus with complication, with long-term current use of insulin ([facility]) Anxiety and depression Cigarette nicotine dependence without complication Encounter for screening mammogram for malignant neoplasm of breast Insomnia Insomnia, unspecified Non-seasonal allergic rhinitis, unspecified trigger Type 2 diabetes mellitus with unspecified complications ([facility]) Vitamin D deficiency, unspecified Gastro-esophageal reflux disease without esophagitis PAD (peripheral artery disease) Unspecified peripheral vascular disease Gastroesophageal reflux disease, unspecified whether esophagitis present Venous ulcer of right leg (HCC) Cellulitis of left lower extremity- Primary COPD exacerbation ([facility]) Obstructive chronic bronchitis with exacerbation Primary hypertension Unspecified essential hypertension Pulmonary hypertension (HCC) Other chronic pulmonary heart diseases Morbid (severe) obesity due to excess calories ([facility]) Type 2 diabetes mellitus with complication, with long-term current use of insulin ([facility]) Anxiety and depression Fever, unspecified fever cause Encounter for subsequent annual wellness visit (AWV) in Medicare patient- Primary Mixed hyperlipidemia Mixed hyperlipidemia Type 2 diabetes mellitus with complication, with long-term current use of insulin ([facility]) Bilateral lower extremity edema Gastro-esophageal reflux disease without esophagitis Chronic diastolic heart failure (HCC) Chronic diastolic heart failure Primary hypertension Unspecified essential hypertension Pulmonary hypertension (HCC) Other chronic pulmonary heart diseases Diabetic polyneuropathy associated with type 2 diabetes mellitus ([facility]) Pulmonary emphysema, unspecified emphysema type (HCC) Moderate persistent asthma without complication (HCC) Insomnia Insomnia, unspecified Non-seasonal allergic rhinitis, unspecified trigger Type 2 diabetes mellitus with unspecified complications (HCC) Anxiety and depression Antibiotic-induced yeast infection Chronic obstructive pulmonary disease, unspecified (HCC) Hyperlipidemia, unspecified Vaginal yeast infection Candidiasis of vulva and vagina Morbid (severe) obesity due to excess calories ([facility]-HCC) Tobacco user Tobacco use disorder Encounter for smoking cessation counseling documented in this encounter [facility] HealthcareEvaluation noteNo assessment information availableGreen Cross Hospital Work Phone: History general Narrative - Reported* Type Description [...] History sepsis 2010 Hospitalization History SEE ABOVE [employer] Other Hospital course Narrative No data available for this section [facility] progress note No data available for this section [facility] reason for referral (narrative) , Referral to Dr. 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 Expl anation Advance Directives and Living Will Power of Instructional Support Technician Advance Directive Response Recorded Date/ Time Advance Directives No December 13 3:20pm Summary Purpose Family History No Family History Records Found Relationship Condition Age at Onset Recorded Date/T isaac father Motor vehicle accident Unknown Unknown family member Unknown mother Motor vehicle accident Unknown Chief Complaint and Reason for Visit Chief Complaint Admit Date FollowUp April 06, 2025 3:08pm Additional Source Comments INFORMATION SOURCE (unrecogn ized section and content) DATE CREATED AUTHOR 10/30/2019 [facility] DATE CREATED AUTHOR AUTHOR'S ORGANIZ ATION 09/15/2020 [facility] DATE CREATED AUTHOR AUTHOR'S ORGANIZ ATION 12/19/2022 [facility] DATE CREATED AUTHOR AUTHOR'S ORGANIZ ATION 06/03/2024 [facility] DATE CREATED AUTHOR AUTHOR'S ORGANIZ ATION 01/30/2025 [facility] DATE CREATED AUTHOR AUTHOR'S ORGANIZ ATION 04/11/2025 [facility] DATE CREATED AUTHOR AUTHOR'S ORGANIZ ATION 04/12/2025 [facility] Care Team (unrecognized sect ion and content) Zanjero Relationship Specialty Start Date End Date Ty Amin MD PCP - General Family Medicine 01/05/23 Zanjero Relationship Specialty Start Date End Date Ty Amin MD PCP - General Family Medicine 01/05/23 Zanjero Relationship Specialty Start Date End Date Ty Amin MD [address] [place] [id number] PCP - General Family Medicine 09/20/23 Mckayla Blas NP [address] [place] [id number] PCP - [facility] 09/07/23 09/05/90 Mckayla Blas, SILVANO [address] [place] [id number] Nurse Practitioner Family Medicine 09/20/23 Zanjero Relationship Specialty Start Date End Date Ty Amin MD [address] [place] [phone] PCP - General Family Medicine 09/20/23 Mckayla Blas NP [address] [place] [address] PCP - [facility] 09/07/23 09/05/90 Mckayla Blas NP [address] [place] [address] Nurse Practitioner Family Medicine 09/20/23 Zanjero Relationship Specialty Start Date End Date Ty Amin MD [address] [place] [address] PCP - General Family Medicine 09/20/23 Mckayla Blas NP [address] [place] [address] [facility] 09/07/23 09/05/90 Mckayla Blas NP [address] [place] [address] Nurse Practitioner Family Medicine 09/20/23 Zanjero Relationship Specialty Start Date End Date Ty Amin MD [address] [place] [address] PCP - General Family Medicine 09/20/23 Mckayla Blas NP [address] [place] [address] [facility] 09/07/23 09/05/90 Mckayla Blas NP [address] [place] [address] Nurse Practitioner Family Medicine 09/20/23 Zanjero Relationship Specialty Start Date End Date Ty Amin MD [address] [place] [address] PCP - General Family Medicine 09/20/23 Mckayla Blas NP [address] [place] [address] PCP - [facility] 09/07/23 09/05/90 Mckayla Blas NP [address] [place] [address] Nurse Practitioner Family Medicine 09/20/23 Zanjero Relationship Specialty Start Date End Date Ty Amin MD [address] [place] [address] PCP - General Family Medicine 09/20/23 Mckayla Blas NP [address] [place] [address] PCP [facility] 09/07/23 09/05/90 Mckayla Blas NP [address] [place] [address] Nurse Practitioner Family Medicine 09/20/23 Zanjero Relationship Specialty Start Date End Date Ty Amin MD [address] [place] [address] PCP - General Family Medicine 09/20/23 Mckayla Blas NP [address] [place] [address] PCP - [facility] 09/07/23 09/05/90 Mckayla Blas NP [address] [place] [address] Nurse Practitioner Family Medicine 09/20/23 Zanjero Relationship Specialty Start Date End Date Ty Amin MD [address] [place] [address] PCP - General Family Medicine 09/20/23 Mckayla Blas NP [address] [place] [address] [facility] 09/07/23 09/05/90 Mckayla Blas NP [address] [place] [address] Nurse Practitioner Family Medicine 09/20/23 Zanjero Relationship Specialty Start Date End Date Ty Amin MD [address] [place] [address] PCP - General Family Medicine 09/20/23 Mckayla Blas NP [address] [place] [address] [facility] 09/07/23 09/05/90 Mckayla Blas NP [address] [place] [address] Nurse Practitioner Family Medicine 09/20/23 Zanjero Relationship Specialty Start Date End Date Ty Amin MD [address] [place] [address] PCP - General Family Medicine 09/20/23 Mckayla Blas NP [address] [place] [address] PCP - [facility] 09/07/23 09/05/90 Mckayla Blas NP [address] [place] [address] Nurse Practitioner Family Medicine 09/20/23 Zanjero Relationship Specialty Start Date End Date Ty Amin MD [address] [place] [address] PCP - General Family Medicine 09/20/23 Mckayla Blas NP [address] [place] [address] PCP [facility] 09/07/23 09/05/90 Mckayla Blas NP [address] [place] [address] Nurse Practitioner Family Medicine 09/20/23 Zanjero Relationship Specialty Start Date End Date Ty Amin MD [address] [place] [address] PCP - General Family Medicine 09/20/23 Mckayla Blas NP [address] [place] [address] PCP - [facility] 09/07/23 09/05/90 Mckayla Blas NP [address] [place] [address] Nurse Practitioner Family Medicine 09/20/23 Zanjero Relationship Specialty Start Date End Date Ty Amin MD [address] [place] [address] PCP - General Family Medicine 09/20/23 Mckayla Blas NP [address] [place] [address] [facility] 09/07/23 09/05/90 Mckayla Blas NP [address] [place] [address] Nurse Practitioner Family Medicine 09/20/23 Zanjero Relationship Specialty Start Date End Date Ty Amin MD [address] [place] [address] PCP - General Family Medicine 09/20/23 Mckayla Blas NP [address] [place] [address] [facility] 09/07/23 09/05/90 Mckayla Blas NP [address] [place] [address] Nurse Practitioner Family Medicine 09/20/23 Zanjero Relationship Specialty Start Date End Date Ty Amin MD [address] [place] [address] PCP - General Family Medicine 09/20/23 Mckayla Blas NP [address] [place] [address] PCP - [facility] 09/07/23 09/05/90 Mckayla Blas NP [address] [place] [address] Nurse Practitioner Family Medicine 09/20/23 Zanjero Relationship Specialty Start Date End Date Ty Amin MD [address] [place] [address] PCP - General Family Medicine 09/20/23 Mckayla Blas NP [address] [place] [address] PCP [facility] 09/07/23 09/05/90 Mckayla Blas NP [address] [place] [address] Nurse Practitioner Family Medicine 09/20/23 Zanjero Relationship Specialty Start Date End Date Ty Amin MD [address] [place] [address] PCP - General Family Medicine 09/20/23 Mckayla Blas NP [address] [place] [address] PCP - [facility] 09/07/23 09/05/90 Mckayla Blas NP [address] [place] [address] Nurse Practitioner Family Medicine 09/20/23 Zanjero Relationship Specialty Start Date End Date Ty Amin MD [address] [place] [address] PCP - General Family Medicine 09/20/23 Mckayla Blas NP [address] [place] [address] [facility] 09/07/23 09/05/90 Mckayla Blas NP [address] [place] [address] Nurse Practitioner Family Medicine 09/20/23 Zanjero Relationship Specialty Start Date End Date Ty Amin MD [address] [place] [address] PCP - General Family Medicine 09/20/23 Mckayla Blas NP [address] [place] [address] [facility] 09/07/23 09/05/90 Mckayla Blas NP [address] [place] [address] Nurse Practitioner Family Medicine 09/20/23 Zanjero Relationship Specialty Start Date End Date Ty Amin MD [address] [place] [address] PCP - General Family Medicine 09/20/23 Mckayla Blas NP [address] [place] [address] PCP - [facility] 09/07/23 09/05/90 Mckayla Blas NP [address] [place] [address] Nurse Practitioner Family Medicine 09/20/23 Zanjero Relationship Specialty Start Date End Date Ty Amin MD [address] [place] [address] PCP - General Family Medicine 09/20/23 Mckayla Blas NP [address] [place] [address] Nurse Practitioner Family Medicine 09/20/23 Zanjero Relationship Specialty Start Date End Date Ty Amin MD [address] [place] [address] PCP - General Family Medicine 09/20/23 Mckayla Blas NP [address] [place] [address] Nurse Practitioner Family Medicine 09/20/23 Zanjero Relationship Specialty Start Date End Date Ty Amin MD [address] [place] [address] PCP - General Family Medicine 09/20/23 Mckayla Blas NP [address] [place] [address] Nurse Practitioner Family Medicine 09/20/23 Zanjero Relationship Specialty Start Date End Date Ty Amin MD [address] [place] [address] PCP - General Family Medicine 09/20/23 Mckayla Blas NP [address] [place] [address] Nurse Practitioner Family Medicine 09/20/23 Zanjero Relationship Specialty Start Date End Date Ty Amin MD [address] [place] [address] PCP - General Family Medicine 09/20/23 Mckayla Blas NP [address] [place] [address] Nurse Practitioner Family Medicine 09/20/23 Team Status: Active Member Role Status Dates Mckayla Blas NP-[facility] Primary Care Provider Active Team Status: Active Member Role Status Dates MAURY Arevalo Primary Care Provider Active Start: March 25, 2025 Price Arora DO Attending Provider Active S tart: March 25, 2025 Team Status: Active Member Role Status Dates MAURY Arevalo Primary Care Provider Active Start: March 26, 2025 Flynn Urias DPM Attending Provider Active Start: March 26, 2025 Team Status: Inactive Member Role Status Dates MAURY Arevalo Primary Care Provider Active Start: April 06, 2025 End: April 06, 2025 MAURY Arevalo Attending Provider Active Start: April 06, 2025 End: April 06, 2025 REASON FOR VISIT (unrecogniz ed section and content) Reason Comments Med Refill Reason Comments Diabetes Follow-up Reason Comments Hospital Follow-up Reason Comments Medicare Annual Wellness Visit Initial Reason Comments Diabetes Goals (unrecognized section and content) Goals may be documented in a n alternate section FOR RECORDS PERTAINING TO PATIENTS WHO ARE [...] BE BASED ON THE PRIMARY CLINICAL RECORDS. [employer] provides no warranty or guarantee of the accuracy or completeness of information in this document.
== END 2025-04-13 11:42 | disposition home or self-care (01) ==
LOC: WC 11:41
PROVIDERS: PCP Nurse Practitioner; Visit Provider Physician Assistant
DX: I87.311 Chronic venous hypertension (idiopathic) with ulcer of right lower extremity (principal); L97.812 Non-pressure chronic ulcer of other part of right lower leg with fat layer exposed
CPT/HCPCS: 29581

== ENCOUNTER 2025-04-16 13:40 | Outpatient (OUT) | payer MEDICARE, SELFPAY ==
--- OUTSIDE RECORDS SUMMARY | 2025-04-16 13:45 | XMS_ITS | CCD ---
Author Organization [facility] Care Team Providers Care Piler Name Role Phone James Benavidez Primary Care Provider JAMES BENAVIDEZ Primary Care Unavailable SHENDGE, VITHAL Admitting Unavailable SHENDGE, VITHAL Attending Unavailable AICHHOLZ, MCKAYLA Primary Care Unavailable AICHHOLZ, MCKAYLA Referring Unavailable AICHHOLZ, MCKAYLA J Primary Care Physician Tico, Stephanie Unavailable OLE RAMIREZ Attending Unavailable OLE RAMIREZ Consulting Unavailable AICHHOLZ, OFFICE WORKFORCE PLANNER MCKAYLA Primary Care Unavailable OLE RAMIREZ Admitting Unavailable ANTONY SHRESTHA Consulting Unavailable ALONDRA ., UMBERTO Admitting Unavailable ALONDRA ., UMBERTO Attending Unavailable AICHHOLZ, OFFICE WORKFORCE PLANNER MCKAYLA Primary Care Unavailable AFSANEH Loera, DR BOLANOS Consulting Unavailable MARYANNE POWER Consulting Unavailable GLENN KERR Consulting Unavailable YOMAIRA KERR Consulting Unavailable HATTIE GOFF Consulting Unavailable ALONDRA ., UMBERTO Consulting Unavailable TICO, STEPHANIE Attending Unavailable TICO, STEPHANIE Consulting Unavailable AICHHOLZ, OFFICE WORKFORCE PLANNER MCKAYLA Primary Care Unavailable TICO, STEPHANIE Admitting Unavailable REGLA ., DR DUMONT Admitting Unavailable AICHHOLZ, OFFICE WORKFORCE PLANNER MCKAYLA Primary Care Unavailable REGLA ., DR DUMONT Attending Unavailable REGLA ., DR DUMONT Consulting Unavailable COLLIN HUERTAS Consulting Unavailable CECILIA KAUFMAN Admitting Unavailable CECILIA KAUFMAN Attending Unavailable AICHHOLZ, OFFICE WORKFORCE PLANNER MCKAYLA Primary Care Unavailable RAFAEL GONGORA Attending Unavailable RAFAEL GONGORA Admitting Unavailable AICHHOLZ, OFFICE WORKFORCE PLANNER MCKAYLA Primary Care Unavailable AICHHOLZ, OFFICE WORKFORCE PLANNER MCKAYLA Admitting Unavailable AICHHOLZ, OFFICE WORKFORCE PLANNER MCKAYLA Primary Care Unavailable AICHHOLZ, OFFICE WORKFORCE PLANNER MCKAYLA Attending Unavailable AICHHOLZ, OFFICE WORKFORCE PLANNER MCKAYLA Consulting Unavailable LAKSHMIPATHY ., NARENDRANATH Attending Anette vailable LAKSHMIPATHY ., NARENDRANATH Consulting Anette vailable LAKSHMIPATHY ., NARENDRANATH Admitting Anette vailable AICHHOLZ, OFFICE WORKFORCE PLANNER MCKAYLA Primary Care Unavailable VALENZUELA ., GIL Consulting Unavailable MORTENSEN ., DR CHAPARRO Aguillon Attending Unavailable MORTENSEN ., DR CHAPARRO Aguillon Admitting Unavailable AICHHOLZ, OFFICE WORKFORCE PLANNER MCKAYLA Primary Care Unavailable VALENZUELA ., GIL Consulting Unavailable MORTENSEN ., DR CHAPARRO Aguillon Admitting Unavailable AICHHOLZ, OFFICE WORKFORCE PLANNER MCKAYLA Primary Care Unavailable MORTENSEN ., DR CHAPARRO Aguillon Attending Unavailable HALKER ., SUBHASH Consulting Unavailable LAKSHMIPATHY ., NARENDRANATH Admitting Anette vailable LAKSHMIPATHY ., NARENDRANATH Attending Anette vailable AICHHOLZ, OFFICE WORKFORCE PLANNER MCKAYLA Primary Care Unavailable MORTENSEN ., DR CHAPARRO Aguillon Attending Unavailable MORTENSEN ., DR CHAPARRO Aguillon Admitting Unavailable VALENZUELA ., GIL Consulting Unavailable AICHHOLZ, OFFICE WORKFORCE PLANNER MCKAYLA Primary Care Unavailable VALENZUELA ., GIL Consulting Unavailable MORTENSEN ., DR CHAPARRO Aguillon Attending Unavailable MORTENSEN ., DR CHAPARRO Aguillon Admitting Unavailable AICHHOLZ, OFFICE WORKFORCE PLANNER MCKAYLA Primary Care Unavailable HATTIE BRODERICK Attending Unavailable HATTIE BRODERICK Admitting Unavailable AICHHOLZ, OFFICE WORKFORCE PLANNER MCKAYLA Primary Care Unavailable AICHHOLZ, OFFICE WORKFORCE PLANNER MCKAYLA Admitting Unavailable AICHHOLZ, OFFICE WORKFORCE PLANNER MCKAYLA Consulting Unavailable AICHHOLZ, OFFICE WORKFORCE PLANNER MCKAYLA Primary Care Unavailable AICHHOLZ, OFFICE WORKFORCE PLANNER MCKAYLA Attending Unavailable AICHHOLZ, OFFICE WORKFORCE PLANNER MCKAYLA Primary Care Unavailable MISC, DR LESLIE Admitting Unavailable MISC, DR LESLIE Attending Unavailable MISC, DR LESLIE Consulting Unavailable DIAB ., MARIANO Admitting Unavailable DIAB ., MARIANO Attending Unavailable DIAB ., MARIANO Consulting Unavailable AICHHOLZ, OFFICE WORKFORCE PLANNER MCKAYLA Primary Care Unavailable RASTEGAR, RICCO Consulting Unavailable AICHHOLZ, OFFICE WORKFORCE PLANNER MCKAYLA Admitting Unavailable AICHHOLZ, OFFICE WORKFORCE PLANNER MCKAYLA Primary Care Unavailable AICHHOLZ, OFFICE WORKFORCE PLANNER MCKAYLA Attending Unavailable AICHHOLZ, OFFICE WORKFORCE PLANNER MCKAYLA Consulting Unavailable DR PATRICIA VELOZ Consulting Unavailable TAMLYN ., CECILIA Attending Unavailable TAMLYN ., CECILIA Admitting Unavailable DR PATRICIA VELOZ Consulting Unavailable AICHHOLZ, OFFICE WORKFORCE PLANNER MCKAYLA Primary Care Unavailable TAMLYN ., CECILIA Consulting Unavailable FESTUS ., DR CHAPARRO Aguillon Attending Unavailable FESTUS ., DR CHAPARRO Aguillon Consulting Unavailable FESTUS ., DR CHAPARRO Aguillon Admitting Unavailable AICHHOLZ, OFFICE WORKFORCE PLANNER MCKAYLA Primary Care Unavailable HATTIE BRODERICK Attending Unavailable HATTIE BRODERICK Consulting Unavailable HATTIE BRODERICK Admitting Unavailable AICHHOLZ, OFFICE WORKFORCE PLANNER MCKAYLA Primary Care Unavailable HATTIE BAUTISTA Unavailable AICHHOLZ, OFFICE WORKFORCE PLANNER MCKAYLA Admitting Unavailable AICHHOLZ, OFFICE WORKFORCE PLANNER MCKAYLA Attending Unavailable AICHHOLZ, OFFICE WORKFORCE PLANNER MCKAYLA Consulting Unavailable AICHHOLZ, OFFICE WORKFORCE PLANNER MCKAYLA Primary Care Unavailable Brennan PHIPPS, Ty Primary Care Provider Brennan PHIPPS, Ty Primary Care Provider Aichholz COW TESTER, Mckayla Unavailable Aichholz COW TESTER, Mckayla Unavailable Elbert ARAUZ Attending Unavailable SARAH VEGA Attending Unavailable AICHHOLZ, MCKAYLA Attending Unavailable RAIN SOUZA F Attending Unavailable AICHHOLZ, MCKAYLA Attending Unavailable AICHHOLZ, MCKAYLA Attending Unavailable AICHHOLZ, MCKAYLA Attending Unavailable LIBBY, AHMAD F Attending Unavailable AICHHOLZ, MCKAYLA Attending Unavailable LIBBY, AHMAD F Attending Unavailable LIBBY, AHMAD F Referring Unavailable AICHHOLZ, MCKAYLA Attending Unavailable Aichholz COW TESTER, Mckayla Unavailable Aichholz COW TESTER-C, Mckayla Rice Primary Care Provider Price Arora DO Attending Provider [phone] Adonay DPM, Flynn Rice Attending Provider Aichholz COW TESTER-C, Mckayla Rice Attending Provider [phone] AMI ORO Attending Unavailable DAKOTAH BRIDGES Attending Unavailable Adonay BAEZM, Flynn Arzate Attending Unavailab le Bob TAX ADVISOR-OFFICE WORKFORCE PLANNER, Omero Lovell Attending Unav ailable Adonay DPM, Flynn Arzate Referring Unavailab lolita Kellogg MD, Corinne Ghosh Attending Unavail able Aichholz TAX ADVISOR-OFFICE WORKFORCE PLANNER, Mckayla Citlalli Primary Care Unava ilable Bob TAX ADVISOR-OFFICE WORKFORCE PLANNER, Omero Lovell Attending Unav ailable Adonay DPM, Flynn Arzate Attending [facility] Ryan SAVAGE-SAYDA, Omero Lovell Attending [facility] roberto Blas APRN-OFFICE WORKFORCE PLANNER, Mckayla Lennon Primary Care Anettemt ilfunmi Allergies Allergy Classification Reported Allergen(s) Allergy Type Date of Onset Reaction(s) Facility (1 source) No Known Medication Allergies; Translations: [No Known Medication Allergies] Propensity to adverse reactions (disorder) [facility] Repository Medications Current Medications Medication Drug [...] tablet by mouth every four hours Hydrocodone-Acetaminophen ([place]) 5-325 mg tablet Discontinued 1 TAB PO Q4H December 13, 2017 April 05, 2025 12:52pm Start: 12-13-2017 take 1 tablet by vandana th every four to six hours as needed for pain HYDROcodone-acet aminophen ([place]) 5-325 MG tablet 1 tablet 3 (three) times a day as needed for severe pain. Active take 1 tablet by vandana th twice daily as needed [place] 5-325 MG 1 tablet as needed Orally [...] every week ergocalciferol (Vitamin D2) 1.25 MG (52676 UT) capsule Indications: Vitamin D deficiency, unspecified Take 1 capsule (1.25 mg) by mouth 1 (one) time per week 12 capsule 1 01/16/2025 04/10/2025 Active Start: 10-27-2024 End: 01-19-2025 take 1 capsule by mouth two times weekly ergocalciferol (Vitamin D2) 1.25 MG (51125 UT) capsule Indications: Vitamin D deficiency, unspecified Take 1 capsule (1.25 mg) by mouth 2 (two) times a week 24 capsule 1 10/27/2024 01/19/2025 Active Start: 04-06-2024 End: 10-27-2024 take 1 capsule by mouth every week ergocalciferol (Vitamin D2) 1.25 MG (96982 UT) capsule Indications: Vitamin D deficiency, unspecified [...] 02/06/22 Status: Ordered take 1 tablet by [facility] every twenty-four hours Meloxicam 7.5 MG [...] Chronic Other aftercare (1 source) 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; Translations: [OTH 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 Unclassified (1 source) HEATING PLANT SUPERINTENDENT INJECT NONINSULN ANTIDIAB; Translations: [FCI INJECT NONINSULN ANTIDIAB] Onset: 3 Unclassified (3 [...] Onset: 12-05-2022 01-17-2024 Other aftercare (3 sources) 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; Translations: [HEATING PLANT SUPERINTENDENT CURRENT USE OF INSULIN] Onset: 12-05-2022 Episodic [...] Basophils (Bld) [#/Vol] 0.1 10 3/uL 0.0-0.1 [facility] Basophils/100 WBC Auto (Bld) Ordered By: Flynn Urias on 03-26-2025 Basophils/100 WBC (Bld) 0.6 % 0.2-2.0 [facility] Eosinophils/100 WBC Auto (Bl d)Ordered By: Flynn Urias on 03-26-2025 Eosinophils/100 WBC (Bld) 2.7 % 0.9-7.0 [facility] Erythrocyte distribution wid th Auto (RBC) [Ratio]Ordered By: Flynn Urias on 03-26-2025 Erythrocyte distribution width (RBC) [Ratio] 16.4 % High 11.0-15.0 [facility] Glomerular filtration rate ( GFR) estimation in non- AmericanOrdered By: Flynn Urias on 03-26-2025 GFR/1.73 sq M.predicted among non-blacks MDRD (S/P/Bld) [Vol rate/Area] mL/min/{1.73_m2} >=60 mL/min/1.73m 2 [facility] Hematocrit Auto (Bld) [Volum e fraction]Ordered By: Flynn Urias on 03-26-2025 Hematocrit (Bld) [Volume fraction] 52.5 % High 36.0-48.0 [facility] Hemoglobin [Mass/volume] in BloodOrdered By: Flynn Urias on 03-26-2025 Hemoglobin (Bld) [Mass/Vol] 16.1 g/dL High 12.0-16.0 [facility] Laboratory - Chemistry and C hemistry - challengeOrdered By: Flynn Urias on 03-26-2025 Albumin [Mass/Vol] 2.8 g/dL Low 3.4-5.0 [facility] Calcium [Mass/Vol] 8.6 mg/dL 8.5-10.1 [facility] Chloride [Moles/Vol] 105 mmol/L 98-107 [facility] CO2 [Moles/Vol] 31.5 mmol/L 21.0-32.0 [facility] Creatinine [Mass/Vol] 0.69 mg/dL 0.55-1.02 [facility] GFR/1.73 sq M.predicted MDRD (S/P/Bld) [Vol rate/Area] mL/min/{1.73_m2} >=60 mL/min/1.73m 2 [facility] Glucose [Mass/Vol] 147 mg/dL High 74-106 [facility] Potassium [Moles/Vol] 4.2 mmol/L 3.5-5.1 [facility] Sodium [Moles/Vol] 141 mmol/L 136-145 [facility] Urea nitrogen [Mass/Vol] 15.0 mg/dL 7.0-18.0 [facility] Urea nitrogen/Creatinine [Mass ratio] 21.7 mg/mg [facility] Laboratory - Hematology and Cell countsOrdered By: Flynn Urias on 03-26-2025 ESR (Bld) [Velocity] 48 mm/h High <=30 [facility] Immature granulocytes/100 WBC (Bld) 0.3 % 0.0-0.5 [facility] Leukocytes [#/volume] correc bakari for nucleated erythrocytes in Blood by Automated counOrdered By: Flynn Urias on 03-26-2025 WBC corrected for nucl RBC Auto (Bld) [#/Vol] 10.0 10 3/uL 4.0-11.0 [facility] Lymphocytes Auto (Bld) [#/Vo l]Ordered By: Flynn Urias on 03-26-2025 Lymphocytes (Bld) [#/Vol] 2.7 10 3/uL 1.2-3.8 [facility] Lymphocytes/100 WBC Auto (Bl d)Ordered By: Flynn Urias on 03-26-2025 Lymphocytes/100 WBC (Bld) 27.2 % 20.5-60.0 [facility] MCH Auto (RBC) [Entitic mass ]Ordered By: Flynn Urias on 03-26-2025 MCH (RBC) [Entitic mass] 27.2 pg 26.7-34.0 [facility] MCHC Auto (RBC) [Mass/Vol]Or dered By: Flynn Urias on 03-26-2025 MCHC (RBC) [Mass/Vol] 30.7 g/dL 29.9-35.2 [facility] MCV Auto (RBC) [Entitic vol] Ordered By: Flynn Urias on 03-26-2025 MCV (RBC) [Entitic vol] 88.7 fL 81.0-99.[address] [facility] Monocytes Auto (Bld) [#/Vol] Ordered By: Flynn Urias on 03-26-2025 Monocytes (Bld) [#/Vol] 0.5 10 3/uL 0.3-0.8 [facility] Monocytes/100 WBC Auto (Bld) Ordered By: Flynn Urias on 03-26-2025 Monocytes/100 WBC (Bld) 5.2 % 1.7-12.[address] [facility] Neutrophils Auto (Bld) [#/Vo l]Ordered By: Flynn Urias on 03-26-2025 Neutrophils (Bld) [#/Vol] 6.4 10 3/uL 1.4-6.5 [facility] Neutrophils/100 WBC Auto (Bl d)Ordered By: Flynn Urias on 03-26-2025 Neutrophils/100 WBC (Bld) 64.0 % 43.0-75.0 [facility] No Panel InformationOrdered By: Flynn Urias on 03-26-2025 C-Reactive Protein, Quantitative 3.94 mg/dL High <=0.50 [facility] Eosinophils # (Auto) 0.3 10 3/uL 0.0-0.7 [facility] Immature Granulocyte # (Auto) 0.03 10 3/uL 0.00-0.03 [facility] Phosphorus Level 3.5 mg/dL 2.6-4.7 [facility] Platelet mean volume Auto (B ld) [Entitic vol]Ordered By: Flynn Urias on 03-26-2025 Platelet mean volume (Bld) [Entitic vol] 12.8 fL 9.5-13.5 [facility] Platelets Auto (Bld) [#/Vol] Ordered By: Flynn Urias on 03-26-2025 Platelets (Bld) [#/Vol] 146 10 3/uL Low 150-450 [facility] RBC Auto (Bld) [#/Vol]Ordere d By: Flynn Urias on 03-26-2025 RBC (Bld) [#/Vol] 5.92 10 6/uL High 4.20-5.40 [facility] Serum or plasma anion gap de terminationOrdered By: Flynn Urias on 03-26-2025 Anion gap [Moles/Vol] 8.7 mmol/L [facility] Basophils Auto (Bld) [#/Vol] Ordered By: Price Arora on 03-25-2025 Basophils (Bld) [#/Vol] 0.1 10 3/uL 0.0-0.1 [facility] Basophils/100 WBC Auto (Bld) Ordered By: Price Arora on 03-25-2025 Basophils/100 WBC (Bld) 0.4 % 0.2-2.0 [facility] Eosinophils/100 WBC Auto (Bl d)Ordered By: Price Arora on 03-25-2025 Eosinophils/100 WBC (Bld) 2.4 % 0.9-7.0 [facility] Erythrocyte distribution wid th Auto (RBC) [Ratio]Ordered By: Price Arora on 03-25-2025 Erythrocyte distribution width (RBC) [Ratio] 16.4 % High 11.0-15.0 [facility] Glomerular filtration rate ( GFR) estimation in non- AmericanOrdered By: Price Arora on 03-25-2025 GFR/1.73 sq M.predicted among non-blacks MDRD (S/P/Bld) [Vol rate/Area] mL/min/{1.73_m2} >=60 mL/min/1.73m 2 [facility] Hematocrit Auto (Bld) [Volum e fraction]Ordered By: Price Arora on 03-25-2025 Hematocrit (Bld) [Volume fraction] 56.6 % High 36.0-48.0 [facility] Hemoglobin [Mass/volume] in BloodOrdered By: Price Arora on 03-25-2025 Hemoglobin (Bld) [Mass/Vol] 17.4 g/dL High 12.0-16.0 [facility] Laboratory - Chemistry and C hemistry - challengeOrdered By: Price Arora on 03-25-2025 Bilirubin Ql (U) Negative NEGATIVE [facility] Glucose (U) [Mass/Vol] Negative NEGATIVE [facility] Ketones Ql (U) Negative NEGATIVE [facility] pH (U) 8.0 [pH] 5.0-9.0 [facility] Specific gravity (U) [Rel density] 1.020 1.005-1.025 [facility] Urobilinogen Qn (U) 1.0 {Little'U}/dL 0.2-1.0 [facility] Calcium [Mass/Vol] 9.2 mg/dL 8.5-10.1 [facility] Chloride [Moles/Vol] 106 mmol/L 98-107 [facility] CO2 [Moles/Vol] 36.9 mmol/L High 21.0-32.0 [facility] Creatinine [Mass/Vol] 0.86 mg/dL 0.55-1.02 [facility] GFR/1.73 sq M.predicted MDRD (S/P/Bld) [Vol rate/Area] mL/min/{1.73_m2} >=60 mL/min/1.73m 2 [facility] Glucose [Mass/Vol] 164 mg/dL High 74-106 [facility] Potassium [Moles/Vol] 4.0 mmol/L 3.5-5.1 [facility] Sodium [Moles/Vol] 144 mmol/L 136-145 [facility] Urea nitrogen [Mass/Vol] 14.0 mg/dL 7.0-18.0 [facility] Urea nitrogen/Creatinine [Mass ratio] 16.3 mg/mg [facility] Laboratory - Hematology and Cell countsOrdered By: Price Arora on 03-25-2025 Immature granulocytes/100 WBC (Bld) 0.3 % 0.0-0.5 [facility] Laboratory - Specimen inform ationOrdered By: Price Arora on 03-25-2025 Appearance (U) CLEAR CLEAR [facility] Color (U) LT. YELLOW YELLOW [facility] Laboratory - UrinalysisOrder ed By: Price Arora on 03-25-2025 Hyaline casts LM Ql (Urine sed) RARE [facility] Leukocyte esterase Test strip Ql (U) Negative NEGATIVE [facility] Mucus Ql (Urine sed) TRACE Abnormal NONE SEEN [facility] Nitrite Ql (U) Negative NEGATIVE [facility] Protein Ql (U) 100 mg/dL Abnormal NEG/TRACE [facility] Leukocytes [#/volume] correc bakari for nucleated erythrocytes in Blood by Automated counOrdered By: Price Arora on 03-25-2025 WBC corrected for nucl RBC Auto (Bld) [#/Vol] 11.8 10 3/uL High 4.0-11.0 [facility] Lymphocytes Auto (Bld) [#/Vo l]Ordered By: Price Arora on 03-25-2025 Lymphocytes (Bld) [#/Vol] 3.1 10 3/uL 1.2-3.8 [facility] Lymphocytes/100 WBC Auto (Bl d)Ordered By: Price Arora on 03-25-2025 Lymphocytes/100 WBC (Bld) 26.4 % 20.5-60.0 [facility] MCH Auto (RBC) [Entitic mass ]Ordered By: Price Arora on 03-25-2025 MCH (RBC) [Entitic mass] 27.5 pg 26.7-34.0 [facility] MCHC Auto (RBC) [Mass/Vol]Or dered By: Price Arora on 03-25-2025 MCHC (RBC) [Mass/Vol] 30.7 g/dL 29.9-35.2 [facility] MCV Auto (RBC) [Entitic vol] Ordered By: Price Arora on 03-25-2025 MCV (RBC) [Entitic vol] 89.4 fL 81.0-99.[address] [facility] Monocytes Auto (Bld) [#/Vol] Ordered By: Price Arora on 03-25-2025 Monocytes (Bld) [#/Vol] 0.6 10 3/uL 0.3-0.8 [facility] Monocytes/100 WBC Auto (Bld) Ordered By: Price Arora on 03-25-2025 Monocytes/100 WBC (Bld) 5.2 % 1.7-12.[address] [facility] Neutrophils Auto (Bld) [#/Vo l]Ordered By: Price Arora on 03-25-2025 Neutrophils (Bld) [#/Vol] 7.7 10 3/uL High 1.4-6.5 [facility] Neutrophils/100 WBC Auto (Bl d)Ordered By: Price Arora on 03-25-2025 Neutrophils/100 WBC (Bld) 65.3 % 43.0-75.0 [facility] No Panel InformationOrdered By: Price Arora on 03-25-2025 Urine Bacteria TRACE #/HPF Abnormal NONE SEEN [facility] Urine Culture Reflexed NO Fi [facility] Urine Occult Blood Negative NEGATIVE [facility] Urine Other Casts SEEN #/LPF Abnormal NONE SEEN [facility] Urine Other Crystals None Seen #/HPF None Seen [facility] Urine RBC 0-2 #/HPF 0-2 [facility] Urine Squamous Epithelial Cells FEW #/LPF Abnormal NONE/RARE [facility] Urine WBC 0-2 #/HPF Abnormal NONE SEEN [facility] Eosinophils # (Auto) 0.3 10 3/uL 0.0-0.7 [facility] Immature Granulocyte # (Auto) 0.04 10 3/uL High 0.00-0.03 [facility] Platelet mean volume Auto (B ld) [Entitic vol]Ordered By: Price Arora on 03-25-2025 Platelet mean volume (Bld) [Entitic vol] 12.4 fL 9.5-13.5 [facility] Platelets Auto (Bld) [#/Vol] Ordered By: Price Arora on 03-25-2025 Platelets (Bld) [#/Vol] 160 10 3/uL 150-450 [facility] RBC Auto (Bld) [#/Vol]Ordere d By: Price Arora on 03-25-2025 RBC (Bld) [#/Vol] 6.33 10 6/uL High 4.20-5.40 [facility] Serum or plasma anion gap de terminationOrdered By: Price Arora on 03-25-2025 Anion gap [Moles/Vol] 5.1 mmol/L [facility] Vascular Office/Clinic Noteo n 03-23-2025 Vascular [...] She has had testing done at the [facility] last year which she brought with her, [...] Bob Omero REBOLLEDO 03/23/25 12:01 EDT [facility] Podiatry Office/Clinic Noteo n 03-11-2025 Podiatry Office/Clinic Note The content of this note was generated by an [employer] (AI) language dictation. The patient or guardian [...] of this note was generated by an [employer] (AI) language dictation. The patient or guardian [...] of this note was generated by an [employer] intelligence (AI) language dictation. The patient or [...] wraps (gauze, tila bandage, Coban II, tuba molding sander), Dakins solution, a 40-day course of antibiotics, [...] other blood thinners. The patient resides in [place]. Review of Systems Constitutional: Negative for signs [...] extremities Positi (more content not included)... [facility] Comment on above: Order Comment: Destiny ocampo Attachment [id number] Can be viewed in source system XR [...] Electronically Signed in Other Vendor System) [facility] Results Follow-Upon 02-05-20 25 Results Follow-Up [id number] GilbertoMitzi Gilberto 1970 F Date Provider Department Center 02/04/2025 [id number] ORO CARDIOLOGY None Family History Problem Relation Age of Onset Heart attack Paternal Grandmother Family Status - Relation Status Age at Mother Father Paternal Grandmother [facility] Orders Onlyon 01-30-2025 Orders Only [id number] Mitzi Macias 1970 F Date Provider Department Center 01/30/2025 [id number], HISTORICAL [facility] Family History Problem Relation Age of Onset Heart attack Paternal Grandmother Family Status - Relation Status Age at Mother Father Paternal Grandmother [facility] CA ECHO DOPPLER COMPLETEon 0 01-29-2025 [place] [id number] Cardiology Report Signed Patient: MITZI MACIAS MR#: [id number] : 1970 Acct:[id number] Age/Sex: 54 / F ADM Date: 01/29/25 Loc: CARD Attending Dr: AMI ORO APRN Ordering Physician: AMI ORO APRN Date of Service: 01/29/25 Procedure(s): CA echo doppler complete Accession Number(s): [id number] cc: Mckayla Blas COW TESTER; AMI ORO APRN Patient Name: MITZI MACIAS MR#: [id number] : 1970 Exam Date: 01/29/2025 Ordering Doctor: [...] HERRERA Signed By: 01/29/[id number] DD/ 39 TD/TT: 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.] HERRERA Signed By: 01/29/251839 DD/ 39 TD/TT: Shell Press Operator: [facility] Radiology Study observation (narrative) [facility] CA ECHO DOPPLER COMPLETEOrde red By: Radiologist Radiology on 01-29-2025 [facility] Work Phone: Glucose (Bld) [Mass/Vol]on 0 01-29-2025 Glucose Blood, POC 121 mg/dL [facility] Laboratory - Hematology and Cell countson 01-29-2025 HbA1c (Bld) [Mass fraction] 8.4 % [facility] No Panel Informationon 01-29 Interpretation and review of laboratory results Abnormal [facility] Office Visiton 01-06-2025 Follow-up visit [id number] Mitzi Macias 1970 F Date Provider Department Center 01/06/2025 166-AMI ORO CARD Wilfredo Rojas Family History Problem Relation Age of Onset Heart attack Paternal Grandmother Family Status - Relation Status Age at Mother Father Paternal Grandmother Level of Service:84833 [place] OFFICE/OUTPATIENT ESTABLISHED MOD MDM 30 MIN Reason for Visit and Comments: Congestive Heart Failure [127] Hypertension [132520] Hyperlipidemia [182] Normal [facility] 36on 10-21-2024 36 Regarding lab results from 10/08/2024: MD Mickie Merritt MA Lipids, ALT AST, and BMP are normal. HbA1c was not performed. Continue current management. LM on patient's VM. Normal [facility] Glucose (Bld) [Mass/Vol]Orde red By: Mica Sauceda on 10-08-2024 Glucose Blood, POC 97 mg/dL [facility] Laboratory - Hematology and Cell countson 10-08-2024 HbA1c (Bld) [Mass fraction] 7.4 % [facility] No Panel InformationOrdered By: Mica Sauceda on 10-08-2024 [facility] TBH UA (CLEAN/CATCH) MICROSC OPIC IF [...] URINE 1.0 EU/dL 0.2 - 1.0 EU/dL [facility] ALL CBC WITH AUTO DIFFon BASOPHILS ABSOLUTE AUTO 0.1 [facility] Basophils/100 WBC (Bld) 0.5 % 0.2 - 2.0 % [facility] Eosinophils/100 WBC (Bld) 1.9 % 0.9 - 7.0 % [facility] Erythrocyte distribution width (RBC) [Ratio] 14.6 % 11.0 - 15.0 % [facility] Hematocrit (Bld) [Volume fraction] 50.9 % High 36.0 - 48.0 % [facility] Hemoglobin (Bld) [Mass/Vol] 16.1 g/dL High 12.0 - 16.0 g/dL [facility] IMMATURE GRANULOCYTES ABS AUTO 0.04 High [facility] Immature granulocytes/100 WBC (Bld) 0.3 % 0.0 - 0.5 % [facility] Interpretation and review of laboratory results Abnormal [facility] LYMPHOCYTES ABSOLUTE AUTO 3.2 [facility] Lymphocytes/100 WBC (Bld) 25.1 % 20.5 - 60.0 % [facility] MCH (RBC) [Entitic mass] 29.2 pg 26. 7 - 34.0 pg [facility] MCHC (RBC) [Mass/Vol] 31.6 g/dL 29.9 - 35.2 g/dL [facility] MCV (RBC) [Entitic vol] 92.2 fL 81.0 - 99.0 fL [facility] MONOCYTES ABSOLUTE AUTO 0.7 N [facility] Monocytes/100 WBC (Bld) 5.2 % 1.7 - 12.0 % [facility] NEUTROPHILS ABSOLUTE AUTO 8.6 High [facility] Neutrophils/100 WBC (Bld) 67 % 43.0 - 75.0 % [facility] Platelet mean volume (Bld) [Entitic vol] 12.8 fL 9.5 - 13.5 fL [facility] TBH EO # 0.2 [facility] TB PLT 122 Low [facility] TB RBC 5.52 High [facility] TB WBC 12.8 High [facility] Office Visiton 08-08-2024 Follow-up visit [id number] Mitzi Macias 1970 F Date Provider Department Center 08/08/2024 [id number] BRIDGES Family History Problem Relation Age of Onset Heart attack Paternal Grandmother Family Status - Relation Status Age at Paternal Grandmother Level of Service:11278 [place] OFFICE/OUTPATIENT ESTABLISHED MOD MDM 30 MIN Reason for Visit and Comments: Congestive Heart Failure [127] - Denies chest pain, SOB, and palpitations. Hypertension [608903] Hyperlipidemia [182] LVH [Other] Edema [[id number]] - Denies worsening edema. She sees wound care for RLE ulcer. She was seeing the vein specialists here in town but they are moving to [place] in a few weeks. Normal [facility] Glucose (Bld) [Mass/Vol]Orde red By: Mica Sauceda on 05-27-2024 Glucose Blood, POC 158 mg/dL [facility] Laboratory - Hematology and Cell countson 05-27-2024 HbA1c (Bld) [Mass fraction] 9.2 % [facility] No Panel InformationOrdered By: Mica Sauceda on 05-27-2024 [facility] CREATININEon 05-12-2024 Creatinine [Mass/Vol] 0.92 mg/dL 0.55 - 1.02 mg/dL [facility] GFR/1.73 sq M.predicted CKD-EPI (S/P/Bld) [Vol rate/Area] >60 >=60 mL/min/1.73m 2 [facility] EGFR-NON AF SUDANESE >60 >=6 0 mL/min/1.73m 2 [facility] CBC AUTO DIFFon 12-06-2022 BASO # 0.0 103/ul Normal 0.0-0.1 [facility] Comment on above: Performed By: #### C BC #### [facility] [address] [address] [address] Ashlie Hills Basophils/100 WBC (Bld) 0.1 % Critically low 0.2-2.0 [facility] Comment on above: Performed By: #### C BC #### [facility] [address] [address] [address] Ashlie Hills EO # 0.0 103/ul Normal 0.0-0.7 [facility] Comment on above: Performed By: #### C BC #### [facility] [address] [address] [address] Ashlie Hills Eosinophils/100 WBC (Bld) 0.0 % Critically low 0.9-7.0 [facility] Comment on above: Performed By: #### C BC #### [facility] [address] [place] [address] Dr. Ashlie Hills Erythrocyte distribution width (RBC) [Ratio] 14.9 % Normal 11.0-15.0 [facility] Comment on above: Performed By: #### C BC #### [facility] [address] [place] [address] Dr. Ashlie Hills Hematocrit (Bld) [Volume fraction] 46.2 % Normal 36.0-48.0 [facility] Comment on above: Performed By: #### C BC #### [facility] [address] [place] [address] Dr. Ashlie Hills Hemoglobin (Bld) [Mass/Vol] 14.7 g/dL Normal 12.0-16.0 [facility] Comment on above: Performed By: #### C BC #### [facility] [address] [place] [address] Dr. Ashlie Hills IG # 0.06 10e3/ul Critically high 0.00-0.03 [facility] Comment on above: Performed By: #### C BC #### [facility] [address] [place] [address] Dr. Ashlie Hills IG % 0.4 % Normal 0.0-0.5 [facility] Comment on above: Performed By: #### C BC #### [facility] [address] [place] [address] Dr. Ashlie Hills LYMPH # 1.3 103/ul Normal 1.2-3.8 [facility] Comment on above: Performed By: #### C BC #### [facility] [address] [place] [address] Dr. Ashlie Hills Lymphocytes/100 WBC (Bld) 9.4 % Critically low 20.5-60.0 [facility] Comment on above: Performed By: #### C BC #### [facility] [address] [place] [address] Dr. Ashlie Hills MANUAL DIFF REQ NO Normal [facility] Comment on above: Performed By: #### C BC #### [facility] [address] [place] [address] Dr. Ashlie Hills MCH (RBC) [Entitic mass] 28.4 pg Normal 26.7-34.0 [facility] Comment on above: Performed By: #### C BC #### [facility] [address] [address] [address] Ashlie Hills MCHC (RBC) [Mass/Vol] 31.8 g/dL Normal 29.9-35.2 [facility] Comment on above: Performed By: #### C BC #### [facility] [address] [address] [address] Ashlie Hills MCV (RBC) [Entitic vol] 89.4 fL Normal 81.0-99.0 [facility] Comment on above: Performed By: #### C BC #### [facility] [address] [place] [address] Dr. Ashlie Hills MONO # 0.5 103/ul Normal 0.3-0.8 [facility] Comment on above: Performed By: #### C BC #### [facility] [address] [place] [address] Dr. Ashlie Hills Monocytes/100 WBC (Bld) 3.4 % Normal 1.7-12.0 [facility] Comment on above: Performed By: #### C BC #### [facility] [address] [place] [address] Dr. Ashlie Hills NEUT # 11.8 103/ul Critically high 1.4-6.5 [facility] Comment on above: Performed By: #### C BC #### [facility] [address] [place] [address] Dr. Ashlie Hills Neutrophils/100 WBC (Bld) 86.7 % Critically high 43.0-75.0 [facility] Comment on above: Performed By: #### C BC #### [facility] [address] [place] [address] Dr. Ashlie Hills Platelet mean volume (Bld) [Entitic vol] 12.6 fL Normal 9.5-13.5 [facility] Comment on above: Performed By: #### C BC #### [facility] [address] [place] [address] Dr. Ashlie Hills PLT 133 103/ul Critically low 150-450 [facility] Comment on above: Performed By: #### C BC #### [facility] [address] [place] [address] Dr. Ashlie Hills RBC 5.17 106/ul Normal 4.20-5.40 [facility] Comment on above: Performed By: #### C BC #### [facility] [address] [place] [address] Dr. Ashlie Hills WBC 13.6 103/ul Critically high 4.0-11.0 [facility] Comment on above: Performed By: #### C BC #### [facility] [address] [place] [address] Dr. Ashlie Hills MAGNESIUMon 12-06-2022 Magnesium [Mass/Vol] 2.2 mg/dL Normal 1.8-2.4 [facility] Comment on above: Performed By: #### I NFLUAB #### [facility] [address] [place] [address] Dr. Ashlie Hills POINT OF CARE GLUCOSEon 11-08 Glucose [Mass/Vol] 340 mg/dL Critically high 74-106 [facility] Comment on above: Performed By: #### P OCGLUC #### [facility] [address] [place] [address] Dr. Ashlie Hills Glucose [Mass/Vol] 276 mg/dL Critically high 74-106 [facility] Comment on above: Performed By: #### C BC #### [facility] [address] [place] [address] Dr. Ashlie Hills Glucose [Mass/Vol] 333 mg/dL Critically high 74-106 [facility] Comment on above: Performed By: #### C BC #### [facility] [address] [place] [address] Dr. Ashlie Hills PROF CHEM 8 (BAS METB)on Anion gap [Moles/Vol] 10.9 mmol/L Normal [facility] Comment on above: Performed By: #### I NFLUAB #### [facility] [address] [address] [address] Ashlie Hills Calcium [Mass/Vol] 9.3 mg/dL Normal 8.5-10.1 [facility] Comment on above: Performed By: #### I NFLUAB #### [facility] [address] [address] [address] Ashlie Hills Chloride [Moles/Vol] 103 mmol/L Normal 98-107 [facility] Comment on above: Performed By: #### I NFLUAB #### [facility] [address] [address] [address] Ashlie Hills CO2 [Moles/Vol] 31.2 mmol/L Normal 21.0-32.0 [facility] Comment on above: Performed By: #### I NFLUAB #### [facility] [address] [place] [address] Dr. Ashlie Hills Creatinine [Mass/Vol] 0.96 mg/dL Normal 0.55-1.02 [facility] Comment on above: Performed By: #### I NFLUAB #### [facility] [address] [address] [address] Ashlie Hills EGFR-AF SUDANESE >60 Normal >=60 [facility] Comment on above: Performed By: #### I NFLUAB #### [facility] [address] [place] [address] Dr. Ashlie Hills EGFR-NON AF SUDANESE >60 Normal >=60 [facility] Comment on above: Performed By: #### I NFLUAB #### [facility] [address] [address] [address] Ashlie Hills Glucose [Mass/Vol] 288 mg/dL Critically high 74-106 [facility] Comment on above: Performed By: #### I NFLUAB #### [facility] [address] [address] [address] Ashlie Hills Potassium [Moles/Vol] 5.1 mmol/L Normal 3.5-5.1 [facility] Comment on above: Performed By: #### I NFLUAB #### [facility] [address] [address] [address] Ashlie Hills Sodium [Moles/Vol] 140 mmol/L Normal 136-145 [facility] Comment on above: Performed By: #### I NFLUAB #### [facility] [address] [place] [address] Dr. Ashlie Hills Urea nitrogen [Mass/Vol] 30.0 mg/dL Critically high 7.0-18 .0 [facility] Comment on above: Performed By: #### I NFLUAB #### [facility] [address] [place] [address] Dr. Ashlie Hills Urea nitrogen/Creatinine [Mass ratio] 31.2 mg/mg Normal [facility] Comment on above: Performed By: #### I NFLUAB #### [facility] [address] [place] [address] Dr. Ashlie Hills CBC AUTO DIFFon 12-05-2022 BASO # 0.0 103/ul Normal 0.0-0.1 [facility] Comment on above: Performed By: #### C BC #### [facility] [address] [place] [address] Dr. Ashlie Hills Basophils/100 WBC (Bld) 0.4 % Normal 0.2-2.0 [facility] Comment on above: Performed By: #### C BC #### [facility] [address] [place] [address] Dr. Ashlie Hills EO # 0.0 103/ul Normal 0.0-0.7 [facility] Comment on above: Performed By: #### C BC #### [facility] [address] [place] [address] Dr. Ashlie Hills Eosinophils/100 WBC (Bld) 0.0 % Critically low 0.9-7.0 [facility] Comment on above: Performed By: #### C BC #### [facility] [address] [place] [address] Dr. Ashlie Hills Erythrocyte distribution width (RBC) [Ratio] 14.8 % Normal 11.0-15.0 [facility] Comment on above: Performed By: #### C BC #### [facility] [address] [address] [address] Ashlie Hills Hematocrit (Bld) [Volume fraction] 49.9 % Critically high 36.0-48.0 [facility] Comment on above: Performed By: #### C BC #### [facility] [address] [address] [address] Ashlie Hills Hemoglobin (Bld) [Mass/Vol] 15.7 g/dL Normal 12.0-16.0 [facility] Comment on above: Performed By: #### C BC #### [facility] [address] [address] [address] Ashlie Hills IG # 0.04 10e3/ul Critically high 0.00-0.03 [facility] Comment on above: Performed By: #### C BC #### [facility] [address] [place] [address] Dr. Ashlie Hills IG % 0.5 % Normal 0.0-0.5 [facility] Comment on above: Performed By: #### C BC #### [facility] [address] [address] [address] Ashlie Hills LYMPH # 1.1 103/ul Critically low 1.2-3.8 [facility] Comment on above: Performed By: #### C BC #### [facility] [address] [address] [address] Ashlie Hills Lymphocytes/100 WBC (Bld) 12.7 % Critically low 20.5-60.0 [facility] Comment on above: Performed By: #### C BC #### [facility] [address] [address] [address] Ashlie Hills MANUAL DIFF REQ NO Normal [facility] Comment on above: Performed By: #### C BC #### [facility] [address] [address] [address] Ashlie Hills MCH (RBC) [Entitic mass] 28.1 pg Normal 26.7-34.0 [facility] Comment on above: Performed By: #### C BC #### [facility] [address] [address] [address] Ashlie Hills MCHC (RBC) [Mass/Vol] 31.5 g/dL Normal 29.9-35.2 [facility] Comment on above: Performed By: #### C BC #### [facility] [address] [address] [address] Ashlie Hills MCV (RBC) [Entitic vol] 89.3 fL Normal 81.0-99.0 [facility] Comment on above: Performed By: #### C BC #### [facility] [address] [address] [address] Ashlie Hills MONO # 0.1 103/ul Critically low 0.3-0.8 [facility] Comment on above: Performed By: #### C BC #### [facility] [address] [place] [address] Dr. Ashlie Hills Monocytes/100 WBC (Bld) 1.3 % Critically low 1.7-12.0 [facility] Comment on above: Performed By: #### C BC #### [facility] [address] [address] [address] Ashlie Hills NEUT # 7.2 103/ul Critically high 1.4-6.5 [facility] Comment on above: Performed By: #### C BC #### [facility] [address] [place] [address] Dr. Ashlie Hills Neutrophils/100 WBC (Bld) 85.1 % Critically high 43.0-75.0 [facility] Comment on above: Performed By: #### C BC #### [facility] [address] [address] [address] Ashlie Hills Platelet mean volume (Bld) [Entitic vol] 12.2 fL Normal 9.5-13.5 [facility] Comment on above: Performed By: #### C BC #### [facility] [address] [place] [address] Dr. Ashlie Hills PLT 116 103/ul Critically low 150-450 [facility] Comment on above: Performed By: #### C BC #### [facility] [address], [place] [address] [address] Ashlie Hills RBC 5.59 106/ul Critically high 4.20-5.40 [facility] Comment on above: Performed By: #### C BC #### [facility] [address], [place] [address] [address] Ashlie Hills WBC 8.5 103/ul Normal 4.0-11.0 [facility] Comment on above: Performed By: #### C BC #### [facility] [address], [place] [address] [address] Ashlie Hills CTA CHEST WO W [...] by: HATTIE GOFF Date: 2022-12-05 01:52 Normal [facility] MAGNESIUMon 12-05-2022 Magnesium [Mass/Vol] 2.1 mg/dL Normal 1.8-2.4 [facility] Comment on above: Performed By: #### P OCGLUC #### [facility] [address] [address] [address] Ashlie Hills POINT OF CARE GLUCOSEon 11-08 Glucose [Mass/Vol] 293 mg/dL Critically high 74-106 [facility] Comment on above: Performed By: #### P OCGLUC #### [facility] [address] [address] [address] Ashlie Hills Glucose [Mass/Vol] 269 mg/dL Critically high -106 [facility] Comment on above: Performed By: #### P OCGLUC #### [facility] [address] [address] [address] Ashlie Hills Glucose [Mass/Vol] 223 mg/dL Critically high -106 [facility] Comment on above: Performed By: #### C VDAGS #### [facility] [address] [address] [address] Ashlie Hills PROF CHEM 8 (BAS METB)on Anion gap [Moles/Vol] 11.6 mmol/L Normal [facility] Comment on above: Performed By: #### P OCGLUC #### [facility] [address] [address] [address] Ashlie Hills Calcium [Mass/Vol] 9.2 mg/dL Normal 8.5-10.1 [facility] Comment on above: Performed By: #### P OCGLUC #### [facility] [address] [address] [address] Ashlie Hills Chloride [Moles/Vol] 102 mmol/L Normal 98-107 [facility] Comment on above: Performed By: #### P OCGLUC #### [facility] [address] [address] [address] Ashlie Hills CO2 [Moles/Vol] 28.7 mmol/L Normal 21.0-32.0 [facility] Comment on above: Performed By: #### P OCGLUC #### [facility] [address] [address] [address] Ashlie Hills Creatinine [Mass/Vol] 1.04 mg/dL Critically high 0.55-1.02 [facility] Comment on above: Performed By: #### P OCGLUC #### [facility] [address] [address] [address] Ashlie Hills EGFR-AF SUDANESE >60 Normal >=60 [facility] Comment on above: Performed By: #### P OCGLUC #### [facility] [address] [address] [address] Ashlie Hills EGFR-NON AF SUDANESE 56 mL/min/1.73m2 Critically low >=60 [facility] Comment on above: Performed By: #### P OCGLUC #### [facility] [address] [address] [address] Ashlie Hills Glucose [Mass/Vol] 231 mg/dL Critically high 74-106 [facility] Comment on above: Performed By: #### P OCGLUC #### [facility] [address] [address] [address] Ashlie Hills Potassium [Moles/Vol] 4.3 mmol/L Normal 3.5-5.1 [facility] Comment on above: Performed By: #### P OCGLUC #### [facility] [address] [address] [address] Ashlie Hills Sodium [Moles/Vol] 138 mmol/L Normal 136-145 [facility] Comment on above: Performed By: #### P OCGLUC #### [facility] [address] [address] [address] Ashlie Hills Urea nitrogen [Mass/Vol] 17.0 mg/dL Normal 7.0-18.0 [facility] Comment on above: Performed By: #### P OCGLUC #### [facility] [address] [address] [address] Ashlie Hills Urea nitrogen/Creatinine [Mass ratio] 16.3 mg/mg Normal [facility] Comment on above: Performed By: #### P OCGLUC #### [facility] [address] [place] [address] Dr. Ashlie Hlils RESPIRATORY PANEL PLUSon Adenovirus Not detected Normal NOT DETECTED [facility] Comment on above: Performed By: #### C VDAGS #### [facility] [address] [place] [address] Dr. Ashlie Hills B. Parapertusis Not detected Normal NOT DETECTED [facility] Comment on above: Performed By: #### C VDAGS #### [facility] [address] [place] [address] Dr. Ashlie Hills B. Pertussis Not detected Normal NOT DETECTED [facility] Comment on above: Performed By: #### C VDAGS #### [facility] [address] [place] [address] Dr. Ashlie Hills Chlamydia Pneumoniae Not detected Normal NOT DETECTED [facility] Comment on above: Performed By: #### C VDAGS #### [facility] [address] [place] [address] Dr. Ashlie Hills Coronavirus 229E Not detected Normal NOT DETECTED [facility] Comment on above: Performed By: #### C VDAGS #### [facility] [address] [place] [address] Dr. Ashlie Hills Coronavirus HKU1 Not detected Normal NOT DETECTED [facility] Comment on above: Performed By: #### C VDAGS #### [facility] [address] [place] [address] Dr. Ashlie Hills Coronavirus NL63 Not detected Normal NOT DETECTED [facility] Comment on above: Performed By: #### C VDAGS #### [facility] [address] [place] [address] Dr. Ashlie Hills Coronavirus OC43 Not detected Normal NOT DETECTED [facility] Comment on above: Performed By: #### C VDAGS #### [facility] [address] [place] [address] Dr. Ashlie Hills Influenza A H1 Not detected Normal NOT DETECTED [facility] Comment on above: Performed By: #### C VDAGS #### [facility] [address] [address] [address] Ashlie Hills Influenza A H1 2009 Not detected Normal NOT DETECTED [facility] Comment on above: Performed By: #### C VDAGS #### [facility] [address] [address] [address] Ashlie Hills Influenza A H3 Not detected Normal NOT DETECTED [facility] Comment on above: Performed By: #### C VDAGS #### [facility] [address] [address] [address] Ashlie Hills Influenza B Not detected Normal NOT DETECTED [facility] Comment on above: Performed By: #### C VDAGS #### [facility] [address] [address] [address] Ashlie Hills Metapneumovirus Not detected Normal NOT DETECTED [facility] Comment on above: Performed By: #### C VDAGS #### [facility] [address] [address] [address] Ashlie Hills Mycoplas. Pneumoniae Not detected Normal NOT DETECTED [facility] Comment on above: Performed By: #### C VDAGS #### [facility] [address] [address] [address] Ashlie Hills Parainfluenza 1 Not detected Normal NOT DETECTED [facility] Comment on above: Performed By: #### C VDAGS #### [facility] [address] [address] [address] Ashlie Hills Parainfluenza 2 Not detected Normal NOT DETECTED [facility] Comment on above: Performed By: #### C VDAGS #### [facility] [address] [address] [address] Ashlie Hills Parainfluenza 3 Detected Abnormal NOT DETECTED [facility] Comment on above: Performed By: #### C VDAGS #### [facility] [address] [address] [address] Ashlie Hills Parainfluenza 4 Not detected Normal NOT DETECTED [facility] Comment on above: Performed By: #### C VDAGS #### [facility] [address] [place] [address] Dr. Ashlie Hills Rhino/Enterovirus Not detected Normal NOT DETECTED [facility] Comment on above: Performed By: #### C VDAGS #### [facility] [address] [place] [address] Dr. Ashlie Hills RP2 Header 1 RESPIRATORY PANEL: VIRUSES Normal [facility] Comment on above: Performed By: #### C VDAGS #### [facility] [address] [place] [address] Dr. Ashlie Hills RP2 Header 2 RESPIRATORY PANEL: BACTERIA Normal [facility] Comment on above: Performed By: #### C VDAGS #### [facility] [address] [place] [address] Dr. Ashlie Hills RSV Not detected Normal NOT DETECTED [facility] Comment on above: Performed By: #### C VDAGS #### [facility] [address] [place] [address] Dr. Ashlie Hills SARS-CoV-2 (COVID-19) RNA MADDY+probe Ql (Unsp spec) Not detected Normal NOT DETECTED [facility] Comment on above: Performed By: #### C VDAGS #### [facility] [address] [place] [address] Dr. Ashlie Hills XR CHEST 1 Von [...] by: MARYANNE POWER Date: 2022-12-04 22:23 Normal [facility] BLOOD GASES BTYon 12-04-2022 02 MODE ROOM AIR Normal [facility] Comment on above: Performed By: #### C BC #### [facility] [address] [place] [address] Dr. Ashlie Hills ALLENS TEST Positive Normal [facility] Comment on above: Performed By: #### C BC #### [facility] [address] [place] [address] Dr. Ashlie Hills Base excess Calc (Bld) [Moles/Vol] 5.4 mmol/L Critically high -2.0-2.0 [facility] Comment on above: Performed By: #### C BC #### [facility] [address] [place] [address] Dr. Ashlie Hills BIPAP PRESSURE Normal [facility] Comment on above: Performed By: #### C BC #### [facility] [address] [place] [address] Dr. Ashlie Hills CPAP [facility] Comment on above: Performed By: #### C BC #### [facility] [address] [place] [address] Dr. Ashlie Hills FIO2 [facility] Comment on above: Performed By: #### C BC #### [facility] [address] [place] [address] Dr. Ashlie Hills HCO3 (Bld) [Moles/Vol] 30.8 mmol/L Critically high 22.0-26 .0 [facility] Comment on above: Performed By: #### C BC #### [facility] [address] [place] [address] Dr. Ashlie Hills LPM [facility] Comment on above: Performed By: #### C BC #### [facility] [address] [place] [address] Dr. Ashlie Hills MINUTE VOLUME Normal [facility] Comment on above: Performed By: #### C BC #### [facility] [address] [place] [address] Dr. Ashlie Hills Oxygen (Bld) [Partial pressure] 46.3 mm[Hg] Critically low 80.0-100.0 [facility] Comment on above: Performed By: #### C BC #### [facility] [address] [place] [address] Dr. Ashlie Hills Oxygen saturation in Blood 83.9 % Critically low 95.0-100.0 [facility] Comment on above: Performed By: #### C BC #### [facility] [address] [address] [address] Ashlie Hills PCO2 54.2 mmHg Critically high 35.0-45.0 [facility] Comment on above: Performed By: #### C BC #### [facility] [address] [address] [address] Ashlie Hills PEEP [facility] Comment on above: Performed By: #### C BC #### [facility] [address] [address] [address] Ashlie Hills pH (Bld) 7.363 [pH] Normal 7.350-7.450 [facility] Comment on above: Performed By: #### C BC #### [facility] [address] [address] [address] Ashlie Hills [facility] Comment on above: Performed By: #### C BC #### [facility] [address] [place] [address] Dr. Ashlie Hills [facility] Comment on above: Performed By: #### C BC #### [facility] [address] [address] [address] Ashlie Hills PUNCTURE SITE LR [facility] Comment on above: Performed By: #### C BC #### [facility] [address] [address] [address] Ashlie Hills RATE [facility] Comment on above: Performed By: #### C BC #### [facility] [address] [place] [address] Dr. Ashlie Hills VENT MODE [facility] Comment on above: Performed By: #### C BC #### [facility] [address] [address] [address] Ashlie Hills [facility] Comment on above: Performed By: #### C BC #### [facility] [address] [place] [address] Dr. Ashlie Hills BNPon 12-04-2022 Natriuretic peptide B (Bld) [Mass/Vol] 76.0 pg/mL Normal <=900.0 [facility] Comment on above: Performed By: #### P OCGLUC #### [facility] [address] [place] [address] Dr. Ashlie Hills CBC AUTO DIFFon 12-04-2022 BASO # 0.1 103/ul Normal 0.0-0.1 [facility] Comment on above: Performed By: #### C BC #### [facility] [address] [place] [address] Dr. Ashlie Hills Basophils/100 WBC (Bld) 0.6 % Normal 0.2-2.0 [facility] Comment on above: Performed By: #### C BC #### [facility] [address] [place] [address] Dr. Ashlie Hills EO # 0.2 103/ul Normal 0.0-0.7 [facility] Comment on above: Performed By: #### C BC #### [facility] [address] [place] [address] Dr. Ashlie Hills Eosinophils/100 WBC (Bld) 1.9 % Normal 0.9-7.0 [facility] Comment on above: Performed By: #### C BC #### [facility] [address] [place] [address] Dr. Ashlie Hills Erythrocyte distribution width (RBC) [Ratio] 15.0 % Normal 11.0-15.0 [facility] Comment on above: Performed By: #### C BC #### [facility] [address] [place] [address] Dr. Ashlie Hills Hematocrit (Bld) [Volume fraction] 49.1 % Critically high 36.0-48.0 [facility] Comment on above: Performed By: #### C BC #### [facility] [address] [place] [address] Dr. Ashlie Hills Hemoglobin (Bld) [Mass/Vol] 15.6 g/dL Normal 12.0-16.0 [facility] Comment on above: Performed By: #### C BC #### [facility] [address] [place] [address] Dr. Ashlie Hills IG # 0.02 10e3/ul Normal 0.00-0.03 [facility] Comment on above: Performed By: #### C BC #### [facility] [address] [place] [address] Dr. Ashlie Hills IG % 0.2 % Normal 0.0-0.5 [facility] Comment on above: Performed By: #### C BC #### [facility] [address] [place] [address] Dr. Ashlei Hills LYMPH # 2.8 103/ul Normal 1.2-3.8 [facility] Comment on above: Performed By: #### C BC #### [facility] [address] [place] [address] Dr. Ashlie Hills Lymphocytes/100 WBC (Bld) 29.9 % Normal 20.5-60.0 [facility] Comment on above: Performed By: #### C BC #### [facility] [address] [place] [address] Dr. Ashlie Hills MANUAL DIFF REQ NO Normal [facility] Comment on above: Performed By: #### C BC #### [facility] [address] [place] [address] Dr. Ashlie Hills MCH (RBC) [Entitic mass] 28.5 pg Normal 26.7-34.0 [facility] Comment on above: Performed By: #### C BC #### [facility] [address] [place] [address] Dr. Ashlie Hills MCHC (RBC) [Mass/Vol] 31.8 g/dL Normal 29.9-35.2 [facility] Comment on above: Performed By: #### C BC #### [facility] [address] [place] [address] Dr. Ashlie Hills MCV (RBC) [Entitic vol] 89.8 fL Normal 81.0-99.0 [facility] Comment on above: Performed By: #### C BC #### [facility] [address] [place] [address] Dr. Ashlie Hills MONO # 1.0 103/ul Critically high 0.3-0.8 [facility] Comment on above: Performed By: #### C BC #### [facility] [address] [address] [address] Ashlie Hills Monocytes/100 WBC (Bld) 10.6 % Normal 1.7-12.0 [facility] Comment on above: Performed By: #### C BC #### [facility] [address] [address] [address] Ashlie Hills NEUT # 5.3 103/ul Normal 1.4-6.5 [facility] Comment on above: Performed By: #### C BC #### [facility] [address] [address] [address] Ashlie Hills Neutrophils/100 WBC (Bld) 56.8 % Normal 43.0-75.0 [facility] Comment on above: Performed By: #### C BC #### [facility] [address] [address] [address] Ashlie Hills Platelet mean volume (Bld) [Entitic vol] 12.5 fL Normal 9.5-13.5 [facility] Comment on above: Performed By: #### C BC #### [facility] [address] [address] [address] Ashlie Hills PLT 109 103/ul Critically low 150-450 [facility] Comment on above: Performed By: #### C BC #### [facility] [address] [address] [address] Ashlie Hills RBC 5.47 106/ul Critically high 4.20-5.40 [facility] Comment on above: Performed By: #### C BC #### [facility] [address] [address] [address] Ashlie Hills WBC 9.4 103/ul Normal 4.0-11.0 [facility] Comment on above: Performed By: #### C BC #### [facility] [address] [address] [address] Ashlie Hills PROF 14(COMP METB)on 023 Albumin [Mass/Vol] 2.9 g/dL Critically low 3.4-5.0 [facility] Comment on above: Performed By: #### C BC #### [facility] [address] [place] [address] Dr. Ashlie Hills Albumin/Globulin [Mass ratio] 0.6 {ratio} Normal [facility] Comment on above: Performed By: #### C BC #### [facility] [address] [place] [address] Dr. Ashlie Hills ALP [Catalytic activity/Vol] 64 U/L Normal 46-116 [facility] Comment on above: Performed By: #### C BC #### [facility] [address] [place] [address] Dr. Ashlie Hills ALT [Catalytic activity/Vol] 16 U/L Normal 14-59 [facility] Comment on above: Performed By: #### C BC #### [facility] [address] [place] [address] Dr. Ashlie Hills Anion gap [Moles/Vol] 9.6 mmol/L Normal [facility] Comment on above: Performed By: #### C BC #### [facility] [address] [place] [address] Dr. Ashlie Hills AST [Catalytic activity/Vol] 16 U/L Normal 15-37 [facility] Comment on above: Performed By: #### C BC #### [facility] [address] [place] [address] Dr. Ashlie Hills Bilirubin [Mass/Vol] 0.5 mg/dL Normal 0.2-1.0 [facility] Comment on above: Performed By: #### C BC #### [facility] [address] [place] [address] Dr. Ashlie Hills Calcium [Mass/Vol] 8.7 mg/dL Normal 8.5-10.1 [facility] Comment on above: Performed By: #### C BC #### [facility] [address] [place] [address] Dr. Ashlie Hills Chloride [Moles/Vol] 103 mmol/L Normal 98-107 [facility] Comment on above: Performed By: #### C BC #### [facility] [address] [address] [address] Ashlie Hills CO2 [Moles/Vol] 30.7 mmol/L Normal 21.0-32.0 [facility] Comment on above: Performed By: #### C BC #### [facility] [address] [address] [address] Ashlie Hills Creatinine [Mass/Vol] 0.96 mg/dL Normal 0.55-1.02 [facility] Comment on above: Performed By: #### C BC #### [facility] [address] [address] [address] Ashlie Hills EGFR-AF SUDANESE >60 Normal >=60 [facility] Comment on above: Performed By: #### C BC #### [facility] [address] [place] [address] Dr. Ashlie Hills EGFR-NON AF SUDANESE >60 Normal >=60 [facility] Comment on above: Performed By: #### C BC #### [facility] [address] [address] [address] Ashlie Hills Globulin (S) [Mass/Vol] 4.7 g/dL Normal [facility] Comment on above: Performed By: #### C BC #### [facility] [address] [place] [address] Dr. Ashlie Hills Glucose [Mass/Vol] 170 mg/dL Critically high 74-106 [facility] Comment on above: Performed By: #### C BC #### [facility] [address] [place] [address] Dr. Ashlie Hills Potassium [Moles/Vol] 4.3 mmol/L Normal 3.5-5.1 [facility] Comment on above: Performed By: #### C BC #### [facility] [address] [place] [address] Dr. Ashlie Hills Protein [Mass/Vol] 7.6 g/dL Normal 6.4-8.2 [facility] Comment on above: Performed By: #### C BC #### [facility] [address] [place] [address] Dr. Ashlie Hills Sodium [Moles/Vol] 139 mmol/L Normal 136-145 [facility] Comment on above: Performed By: #### C BC #### [facility] [address] [place] [address] Dr. Ashlie Hills Urea nitrogen [Mass/Vol] 16.0 mg/dL Normal 7.0-18.0 [facility] Comment on above: Performed By: #### C BC #### [facility] [address] [place] [address] Dr. Ashlie Hills Urea nitrogen/Creatinine [Mass ratio] 16.7 mg/mg Normal [facility] Comment on above: Performed By: #### C BC #### [facility] [address] [place] [address] Dr. Ashlie Hills SYMPTOMATIC COVID-19 ANTIGEN on 12-04-2022 EUA Statement SEE BELOW Normal [facility] Comment on above: Result Comment: This test [...] By: #### C VDAGS #### [facility] [address] [place] [address] Dr. Ashlie Hills SARS-CoV-2 (COVID-19) RNA MADDY+probe Ql (Unsp spec) Negative Normal NEGATIVE [facility] Comment on above: Performed By: #### C VDAGS #### [facility] [address] [place] [address] Dr. Ashlie Hills TROPONIN, HIGH SENSITIVITYon 12-04-2022 HSTROP 8.9 pg/mL Normal 4.0-51.3 [facility] Comment on above: Result Comment: CUT- OFF POINTS HAVE BEEN ESTABLISHED BASED ON THE FOURTH UNIVERSAL DEFINITIONS OF MYOCARDIAL INFARCTION. THE UPPER REFERENCE LIMIT (URL) OF TROPONIN, DEFINED THE 99TH PERCENTILE OF cTnI DISTRIBUTION IN A REFERENCE POPULATION, HAS BEEN CONFIRMED THE DECISION THRESHOLD FOR OK DIAGNOSIS. Performed By: #### P OCGLUC #### [facility] [address] [place] [address] Dr. Ashlie Hills MICROALBUMIN, RAND URon - mALB 35.8 mg/dL Critically high <=30.0 [facility] Comment on above: Performed By: #### C VDAGS #### [facility] [address] [place] [address] Dr. Ashlie Hills UA RANDOM W/MICROSCOPICon BACTERIA NONE SEEN Normal NONE SEEN [facility] Comment on above: Performed By: #### C VDAGS #### [facility] [address] [place] [address] Dr. Ashlie Hills Bilirubin Ql (U) Negative Normal NEGATIVE [facility] Comment on above: Performed By: #### C VDAGS #### [facility] [address] [place] [address] Dr. Ashlie Hills CAST SEEN Abnormal NONE [facility] Comment on above: Performed By: #### C VDAGS #### [facility] [address] [place] [address] Dr. Ashlie Hills Clarity (U) CLEAR Normal CLEAR [facility] Comment on above: Performed By: #### C VDAGS #### [facility] [address] [place] [address] Dr. Ashlie Hills Color (U) YELLOW Normal YELLOW [facility] Comment on above: Performed By: #### C VDAGS #### [facility] [address] [place] [address] Dr. Ashlie Hills Crystals LM Nom (Urine sed) NONE SEEN Normal NONE SEEN [facility] Comment on above: Performed By: #### C VDAGS #### [facility] [address] [place] [address] Dr. Ashlie Hills Epithelial cells LM Ql (Urine sed) MODERATE Abnormal NONE SEEN /RARE [facility] Comment on above: Performed By: #### C VDAGS #### [facility] [address] [place] [address] Dr. Ashlie Hills Glucose Ql (U) Negative Normal NEGATIVE [facility] Comment on above: Performed By: #### C VDAGS #### [facility] [address] [place] [address] Dr. Ashlie Hills Hemoglobin Ql (U) TRACE-INTACT Abnormal NEGATIVE [facility] Comment on above: Performed By: #### C VDAGS #### [facility] [address] [place] [address] Dr. Ashlie Hills Ketones Ql (U) Negative Normal NEGATIVE [facility] Comment on above: Performed By: #### C VDAGS #### [facility] [address] [place] [address] Dr. Ashlie Hills LEUKOCYTES Negative Normal NEGATIVE [facility] Comment on above: Performed By: #### C VDAGS #### [facility] [address] [place] [address] Dr. Ashlie Hills MUCOUS NONE SEEN Normal NONE SEEN [facility] Comment on above: Performed By: #### C VDAGS #### [facility] [address] [place] [address] Dr. Ashlie Hills Nitrite Ql (U) Negative Normal NEGATIVE [facility] Comment on above: Performed By: #### C VDAGS #### [facility] [address] [place] [address] Dr. Ashlie Hills pH (U) 5.0 [pH] Normal 5-9 [facility] Comment on above: Performed By: #### C VDAGS #### [facility] [address] [place] [address] Dr. Ashlie Hills RBC 0-2 Normal 0-2 [facility] Comment on above: Performed By: #### C VDAGS #### [facility] [address] [place] [address] Dr. Ashlie Hills SPEC GRAVITY 1.030 Abnormal 1.005-<=1.02 5 [facility] Comment on above: Performed By: #### C VDAGS #### [facility] [address] [place] [address] Dr. Ashlie Hills UA PROTEIN 100 mg/dl Abnormal NEGATIVE/ TRACE [facility] Comment on above: Performed By: #### C VDAGS #### [facility] [address] [place] [address] Dr. Ashlie Hills Urobilinogen Qn (U) 0.2 {Little'U}/dL Normal 0.2 - 1. 0 [facility] Comment on above: Performed By: #### C VDAGS #### [facility] [address] [place] [address] Dr. Ashlie Hills WBC NONE SEEN Normal NONE SEEN [facility] Comment on above: Performed By: #### C VDAGS #### [facility] [address] [place] [address] Dr. Ashlie Hills CBC AUTO DIFFon 11-22-2022 BASO # 0.0 103/ul Normal 0.0-0.1 [facility] Comment on above: Performed By: #### C BC #### [facility] [address] [place] [address] Dr. Ashlie Hills Basophils/100 WBC (Bld) 0.3 % Normal 0.2-2.0 [facility] Comment on above: Performed By: #### C BC #### [facility] [address] [place] [address] Dr. Ashlie Hills EO # 0.4 103/ul Normal 0.0-0.7 [facility] Comment on above: Performed By: #### C BC #### [facility] [address] [place] [address] Dr. Ashlie Hills Eosinophils/100 WBC (Bld) 3.0 % Normal 0.9-7.0 [facility] Comment on above: Performed By: #### C BC #### [facility] [address] [place] [address] Dr. Ashlie Hills Erythrocyte distribution width (RBC) [Ratio] 15.3 % Critically high 11.0-15.0 [facility] Comment on above: Performed By: #### C BC #### [facility] [address] [place] [address] Dr. Ashlie Hills Hematocrit (Bld) [Volume fraction] 52.4 % Critically high 36.0-48.0 [facility] Comment on above: Performed By: #### C BC #### [facility] [address] [place] [address] Dr. Ashlie Hills Hemoglobin (Bld) [Mass/Vol] 16.8 g/dL Critically high 12.0-16.0 [facility] Comment on above: Performed By: #### C BC #### [facility] [address] [place] [address] Dr. Ashlie Hills IG # 0.04 10e3/ul Critically high 0.00-0.03 [facility] Comment on above: Performed By: #### C BC #### [facility] [address] [place] [address] Dr. Ashlie Hills IG % 0.3 % Normal 0.0-0.5 [facility] Comment on above: Performed By: #### C BC #### [facility] [address] [place] [address] Dr. Ashlie Hills LYMPH # 4.5 103/ul Critically high 1.2-3.8 [facility] Comment on above: Performed By: #### C BC #### [facility] [address] [place] [address] Dr. Ashlie Hills Lymphocytes/100 WBC (Bld) 33.2 % Normal 20.5-60.0 [facility] Comment on above: Performed By: #### C BC #### [facility] [address] [place] [address] Dr. Ashlie Hills MANUAL DIFF REQ NO Normal [facility] Comment on above: Performed By: #### C BC #### [facility] [address] [place] [address] Dr. Ashlie Hills MCH (RBC) [Entitic mass] 28.0 pg Normal 26.7-34.0 [facility] Comment on above: Performed By: #### C BC #### [facility] [address] [address] [address] Ashlie Hills MCHC (RBC) [Mass/Vol] 32.1 g/dL Normal 29.9-35.2 [facility] Comment on above: Performed By: #### C BC #### [facility] [address] [place] [address] Dr. Ashlie Hills MCV (RBC) [Entitic vol] 87.3 fL Normal 81.0-99.0 [facility] Comment on above: Performed By: #### C BC #### [facility] [address] [place] [address] Dr. Ashlie Hills MONO # 0.8 103/ul Normal 0.3-0.8 [facility] Comment on above: Performed By: #### C BC #### [facility] [address] [place] [address] Dr. Ashlie Hills Monocytes/100 WBC (Bld) 5.7 % Normal 1.7-12.0 [facility] Comment on above: Performed By: #### C BC #### [facility] [address] [place] [address] Dr. Ashlie Hills NEUT # 7.8 103/ul Critically high 1.4-6.5 [facility] [facility] Comment on above: Performed By: #### C BC #### [facility] [address] [place] [address] Dr. Ashlie Hills Neutrophils/100 WBC (Bld) 57.5 % Normal 43.0-75.0 [facility] Comment on above: Performed By: #### C BC #### [facility] [address] [place] [address] Dr. Ashlie Hills Platelet mean volume (Bld) [Entitic vol] 12.0 fL Normal 9.5-13.5 [facility] Comment on above: Performed By: #### C BC #### [facility] [address] [place] [address] Dr. Ashlie Hills PLT 152 103/ul Normal 150-450 [facility] Comment on above: Performed By: #### C BC #### [facility] [address] [address] [address] Ashlie Hills RBC 6.00 106/ul Critically high 4.20-5.40 [facility] Comment on above: Performed By: #### C BC #### [facility] [address] [address] [address] Ashlie Hills WBC 13.6 103/ul Critically high 4.0-11.0 [facility] Comment on above: Performed By: #### C BC #### [facility] [address] [place] [address] Dr. Ashlie Hills LIPID PROFILEon 11-22-2022 CHOL-HDL RATIO NORM SEE BELOW Normal [facility] Comment on above: Result Comment: 3.3 - 4.4 LOW RISK 4.4 - 7.1 AVERAGE RISK 7.1 - 11.0 MODERATE RISK >11.0 HIGH RISK Performed By: #### C BC #### [facility] [address] [place] [address] Dr. Ashlie Hills Cholesterol [Mass/Vol] 139 mg/dL Normal <=200 Th [facility] Comment on above: Performed By: #### C BC #### [facility] [address] [place] [address] Dr. Ashlie Hills Cholesterol in HDL [Mass/Vol] 35 mg/dL Critically low 40-60 [facility] Comment on above: Performed By: #### C BC #### [facility] [address] [address] [address] Ashlie Hills Cholesterol in LDL [Mass/Vol] 67.4 mg/dL Normal [facility] Comment on above: Performed By: #### C BC #### [facility] [address] [place] [address] Dr. Aslhie Hills Cholesterol.total/Choles terol in HDL [Mass ratio] 4.0 {ratio} Normal [facility] Comment on above: Performed By: #### C BC #### [facility] [address] [place] [address] Dr. Ashlie Hills HDL NORMAL > or = 60 mg/dl - LOW CARDIOVASCULAR RISK <40 mg/dl - HIGH CARDIOVASCULAR RISK Normal [facility] Comment on above: Performed By: #### C BC #### [facility] [address] [address] [address] Ashlie Hills LDL CALC NORMAL SEE BELOW Normal [facility] Comment on above: Result Comment: <100 mg/dl OPTIMAL 100 - 129 mg/dl NEAR OR ABOVE OPTIMAL 130 - 159 mg/dl BORDERLINE HIGH 160 - 189 mg/dl HIGH >190 mg/dl VERY HIGH Performed By: #### C BC #### [facility] [address] [address] [address] Ashlie Hills Triglyceride [Mass/Vol] 183 mg/dL Critically high <=150 [facility] Comment on above: Performed By: #### C BC #### [facility] [address] [address] [address] Ashlie Hills VLDL CALC 36.6 mg/dL Normal [facility] Comment on above: Performed By: #### C BC #### [facility] [address] [address] [address] Ashlie Hills MG MAMM SCREEN 3D ALEX CADon 11-22-2022 MG MAMM SCREEN 3D ALEX CAD Patient: MITZI MACIAS Exam Date: 11/22/2022 : 1970 Gender:F Ordering : SAYDA BLAS [facility] Admission #: [id number] Family : Order #: [id number] CLICK HERE TO VIEW EXAM RADIOLOGY REPORT [...] at age 75. LOCATION: [facility] BREAST COMPOSITION: Almost entirely fatty. FINDINGS: DIAGNOSTIC [...] Veloz M.D. on 11/22/2022 at 12:09 Normal [facility] PROF 14(COMP METB)on 023 Albumin [Mass/Vol] 3.0 g/dL Critically low 3.4-5.0 [facility] Comment on above: Performed By: #### C BC #### [facility] [address] [place] [address] Dr. Ashlie Hills Albumin/Globulin [Mass ratio] 0.6 {ratio} Normal [facility] Comment on above: Performed By: #### C BC #### [facility] [address] [place] [address] Dr. Ashlie Hills ALP [Catalytic activity/Vol] 68 U/L Normal 46-116 [facility] Comment on above: Performed By: #### C BC #### [facility] [address] [place] [address] Dr. Ashlie Hills ALT [Catalytic activity/Vol] 14 U/L Normal 14-59 [facility] Comment on above: Performed By: #### C BC #### [facility] [address] [place] [address] Dr. Ashlie Hills Anion gap [Moles/Vol] 12.1 mmol/L Normal [facility] Comment on above: Performed By: #### C BC #### [facility] [address] [place] [address] Dr. Ashlie Hills AST [Catalytic activity/Vol] 9 U/L Critically low 15-37 [facility] Comment on above: Performed By: #### C BC #### [facility] [address] [address] [address] Ashlie Hills Bilirubin [Mass/Vol] 0.4 mg/dL Normal 0.2-1.0 [facility] Comment on above: Performed By: #### C BC #### [facility] [address] [address] [address] Ashlie Hills Calcium [Mass/Vol] 9.0 mg/dL Normal 8.5-10.1 [facility] Comment on above: Performed By: #### C BC #### [facility] [address] [address] [address] Ashlie Hills Chloride [Moles/Vol] 105 mmol/L Normal 98-107 [facility] Comment on above: Performed By: #### C BC #### [facility] [address] [place] [address] Dr. Ashlie Hills CO2 [Moles/Vol] 30.7 mmol/L Normal 21.0-32.0 [facility] Comment on above: Performed By: #### C BC #### [facility] [address] [place] [address] Dr. Ashlie Hills Creatinine [Mass/Vol] 0.77 mg/dL Normal 0.55-1.02 [facility] Comment on above: Performed By: #### C BC #### [facility] [address] [place] [address] Dr. Ashlie Hills EGFR-AF SUDANESE >60 Normal >=60 [facility] Comment on above: Performed By: #### C BC #### [facility] [address] [place] [address] Dr. Ashlie Hills EGFR-NON AF SUDANESE >60 Normal >=60 [facility] Comment on above: Performed By: #### C BC #### [facility] [address] [place] [address] Dr. Ashlie Hills Globulin (S) [Mass/Vol] 4.8 g/dL Normal [facility] Comment on above: Performed By: #### C BC #### [facility] [address] [place] [address] Dr. Ashlie Hills Glucose [Mass/Vol] 162 mg/dL Critically high 74-106 [facility] Comment on above: Performed By: #### C BC #### [facility] [address] [place] [address] Dr. Ashlie Hills Potassium [Moles/Vol] 3.8 mmol/L Normal 3.5-5.1 [facility] Comment on above: Performed By: #### C BC #### [facility] [address] [place] [address] Dr. Ashlie Hills Protein [Mass/Vol] 7.8 g/dL Normal 6.4-8.2 [facility] Comment on above: Performed By: #### C BC #### [facility] [address] [place] [address] Dr. Ashlie Hills Sodium [Moles/Vol] 144 mmol/L Normal 136-145 [facility] Comment on above: Performed By: #### C BC #### [facility] [address] [place] [address] Dr. Ashlie Hills Urea nitrogen [Mass/Vol] 24.0 mg/dL Critically high 7.0-18 .0 [facility] Comment on above: Performed By: #### C BC #### [facility] [address] [place] [address] Dr. Ashlie Hills Urea nitrogen/Creatinine [Mass ratio] 31.2 mg/mg Normal [facility] Comment on above: Performed By: #### C BC #### [facility] [address] [place] [address] Dr. Ashlie Hills CBC AUTO DIFFon 10-05-2022 BASO # 0.1 103/ul Normal 0.0-0.1 [facility] Comment on above: Performed By: #### C BC #### [facility] [address] [place] [address] Dr. Ashlie Hills Basophils/100 WBC (Bld) 0.6 % Normal 0.2-2.0 [facility] Comment on above: Performed By: #### C BC #### [facility] [address] [place] [address] Dr. Ashlie Hills EO # 0.3 103/ul Normal 0.0-0.7 [facility] Comment on above: Performed By: #### C BC #### [facility] [address] [place] [address] Dr. Ashlie Hills Eosinophils/100 WBC (Bld) 2.1 % Normal 0.9-7.0 [facility] Comment on above: Performed By: #### C BC #### [facility] [address] [place] [address] Dr. Ashlie Hills Erythrocyte distribution width (RBC) [Ratio] 15.9 % Critically high 11.0-15.0 [facility] Comment on above: Performed By: #### C BC #### [facility] [address] [place] [address] Dr. Ashlie Hills Hematocrit (Bld) [Volume fraction] 51.8 % Critically high 36.0-48.0 [facility] Comment on above: Performed By: #### C BC #### [facility] [address] [place] [address] Dr. Ashlie Hills Hemoglobin (Bld) [Mass/Vol] 16.6 g/dL Critically high 12.0-16.0 [facility] Comment on above: Performed By: #### C BC #### [facility] [address] [place] [address] Dr. Ashlie Hills IG # 0.03 10e3/ul Normal 0.00-0.03 [facility] Comment on above: Performed By: #### C BC #### [facility] [address] [place] [address] Dr. Ashlie Hills IG % 0.2 % Normal 0.0-0.5 [facility] Comment on above: Performed By: #### C BC #### [facility] [address] [place] [address] Dr. Ashlie Hills LYMPH # 3.9 103/ul Critically high 1.2-3.8 [facility] Comment on above: Performed By: #### C BC #### [facility] [address] [place] [address] Dr. Ashlie Hills Lymphocytes/100 WBC (Bld) 31.7 % Normal 20.5-60.0 [facility] Comment on above: Performed By: #### C BC #### [facility] [address] [place] [address] Dr. Ashlie Hills MANUAL DIFF REQ NO Normal [facility] Comment on above: Performed By: #### C BC #### [facility] [address] [place] [address] Dr. Ashlie Hills MCH (RBC) [Entitic mass] 27.9 pg Normal 26.7-34.0 [facility] Comment on above: Performed By: #### C BC #### [facility] [address] [place] [address] Dr. Ashlie Hills MCHC (RBC) [Mass/Vol] 32.0 g/dL Normal 29.9-35.2 [facility] Comment on above: Performed By: #### C BC #### [facility] [address] [place] [address] Dr. Ashlie Hills MCV (RBC) [Entitic vol] 87.1 fL Normal 81.0-99.0 [facility] Comment on above: Performed By: #### C BC #### [facility] [address] [place] [address] Dr. Ashlie Hills MONO # 0.7 103/ul Normal 0.3-0.8 [facility] Comment on above: Performed By: #### C BC #### [facility] [address] [place] [address] Dr. Ashlie Hills Monocytes/100 WBC (Bld) 5.8 % Normal 1.7-12.0 [facility] Comment on above: Performed By: #### C BC #### [facility] [address] [place] [address] Dr. Ashlie Hills NEUT # 7.3 103/ul Critically high 1.4-6.5 [facility] Comment on above: Performed By: #### C BC #### [facility] [address] [place] [address] Dr. Ashlie Hills Neutrophils/100 WBC (Bld) 59.6 % Normal 43.0-75.0 [facility] Comment on above: Performed By: #### C BC #### [facility] [address] [address] [address] Ashlie Hills Platelet mean volume (Bld) [Entitic vol] 11.7 fL Normal 9.5-13.5 [facility] Comment on above: Performed By: #### C BC #### [facility] [address] [address] [address] Ashlie Hills PLT 117 103/ul Critically low 150-450 [facility] Comment on above: Performed By: #### C BC #### [facility] [address] [place] [address] Dr. Ashlie Hills RBC 5.95 106/ul Critically high 4.20-5.40 [facility] Comment on above: Performed By: #### C BC #### [facility] [address] [place] [address] Dr. Ashlie Hills WBC 12.3 103/ul Critically high 4.0-11.0 [facility] Comment on above: Performed By: #### C BC #### [facility] [address] [place] [address] ABD/PELV W CONon [...] RICCO PICKARD Date: 2022-10-05 13:13 Normal [facility] URINE PROFILEon 3 Bilirubin Ql (U) Negative Normal NEGATIVE [facility] Comment on above: Performed By: #### P OCGLUC #### [facility] [address] [address] [address] Ashlie Hills Clarity (U) CLEAR Normal CLEAR [facility] Comment on above: Performed By: #### P OCGLUC #### [facility] [address] [place] [address] Dr. Ashlie Hills Color (U) YELLOW Normal YELLOW [facility] Comment on above: Performed By: #### P OCGLUC #### [facility] [address] [address] [address] Ashlie Hills ERUAHBraulio A micrscopic examination will be performed if indicated. Normal [facility] Comment on above: Performed By: #### P OCGLUC #### [facility] [address] [address] [address] Ashlie Hills Glucose Ql (U) Negative Normal NEGATIVE [facility] Comment on above: Performed By: #### P OCGLUC #### [facility] [address] [address] [address] Ashlie Hills Hemoglobin Ql (U) Negative Normal NEGATIVE [facility] Comment on above: Performed By: #### P OCGLUC #### [facility] [address] [address] [address] Ashlie Hills Ketones Ql (U) Negative Normal NEGATIVE [facility] Comment on above: Performed By: #### P OCGLUC #### [facility] [address] [address] [address] Ashlie Hills LEUKOCYTES Negative Normal NEGATIVE [facility] Comment on above: Performed By: #### P OCGLUC #### [facility] [address] [place] [address] Dr. Ashlie Hills Nitrite Ql (U) Negative Normal NEGATIVE [facility] Comment on above: Performed By: #### P OCGLUC #### [facility] [address] [place] [address] Dr. Ashlie Hills pH (U) 6.0 [pH] Normal 5-9 [facility] Comment on above: Performed By: #### P OCGLUC #### [facility] [address] [place] [address] Dr. Ashlie Hills Protein (U) [Mass/Vol] 100 mg/dL Abnormal NEGAT YURY/ TRACE [facility] Comment on above: Performed By: #### P OCGLUC #### [facility] [address] [place] [address] Dr. Ashlie Hills SPEC GRAVITY 1.010 Normal 1.005-<=1.02 5 [facility] Comment on above: Performed By: #### P OCGLUC #### [facility] [address] [place] [address] Dr. Ashlie Hills UR MICRO IND INDICATED Normal [facility] Comment on above: Performed By: #### P OCGLUC #### [facility] [address] [place] [address] Dr. Ashlie Hills Urobilinogen Qn (U) 1.0 {Little'U}/dL Normal 0.2 - 1. 0 [facility] Comment on above: Performed By: #### P OCGLUC #### [facility] [address] [place] [address] Dr. Ashlie Hills LIPASEon 10-05-2022 Lipase [Catalytic activity/Vol] 1771.0 U/L Critically high 73.0-393.0 [facility] Comment on above: Performed By: #### C BC #### [facility] [address] [place] [address] Dr. Ashlie Hills PREG HCG QUALon 10-05-2022 , QUAL Negative Normal NEGATIVE [facility] Comment on above: Performed By: #### P OCGLUC #### [facility] [address] [place] [address] Dr. Ashlie Hills PROF 14(COMP METB)on 023 Albumin [Mass/Vol] 3.2 g/dL Critically low 3.4-5.0 [facility] Comment on above: Performed By: #### C BC #### [facility] [address] [place] [address] Dr. Ashlie Hills Albumin/Globulin [Mass ratio] 0.7 {ratio} Normal [facility] Comment on above: Performed By: #### C BC #### [facility] [address] [place] [address] Dr. Ashlie Hills ALP [Catalytic activity/Vol] 70 U/L Normal 46-116 [facility] Comment on above: Performed By: #### C BC #### [facility] [address] [place] [address] Dr. Ashlie Hills ALT [Catalytic activity/Vol] 11 U/L Critically low 14-59 [facility] Comment on above: Performed By: #### C BC #### [facility] [address] [place] [address] Dr. Ashlie Hills Anion gap [Moles/Vol] 10.3 mmol/L Normal [facility] Comment on above: Performed By: #### C BC #### [facility] [address] [place] [address] Dr. Ashlie Hills AST [Catalytic activity/Vol] 11 U/L Critically low 15-37 [facility] Comment on above: Performed By: #### C BC #### [facility] [address] [place] [address] Dr. Ashlie Hills Bilirubin [Mass/Vol] 0.9 mg/dL Normal 0.2-1.0 [facility] Comment on above: Performed By: #### C BC #### [facility] [address] [place] [address] Dr. Ashlie Hills Calcium [Mass/Vol] 9.3 mg/dL Normal 8.5-10.1 [facility] Comment on above: Performed By: #### C BC #### [facility] [address] [place] [address] Dr. sAhlie Hills Chloride [Moles/Vol] 105 mmol/L Normal 98-107 [facility] Comment on above: Performed By: #### C BC #### [facility] [address] [address] [address] Ashlie Hills CO2 [Moles/Vol] 30.6 mmol/L Normal 21.0-32.0 [facility] Comment on above: Performed By: #### C BC #### [facility] [address] [address] [address] Ashlie Hills Creatinine [Mass/Vol] 0.62 mg/dL Normal 0.55-1.02 [facility] Comment on above: Performed By: #### C BC #### [facility] [address] [place] [address] Dr. Ashlie Hills EGFR-AF SUDANESE >60 Normal >=60 [facility] Comment on above: Performed By: #### C BC #### [facility] [address] [place] [address] Dr. Ashlie Hills EGFR-NON AF SUDANESE >60 Normal >=60 [facility] Comment on above: Performed By: #### C BC #### [facility] [address] [place] [address] Dr. Ashlie Hills Globulin (S) [Mass/Vol] 4.6 g/dL Normal T [facility] Comment on above: Performed By: #### C BC #### [facility] [address] [place] [address] Dr. Ashlie Hills Glucose [Mass/Vol] 85 mg/dL Normal 74-106 [facility] Comment on above: Performed By: #### C BC #### [facility] [address] [place] [address] Dr. Ashlie Hills Potassium [Moles/Vol] 3.9 mmol/L Normal 3.5-5.1 [facility] Comment on above: Performed By: #### C BC #### [facility] [address] [place] [address] Dr. Ashlie Hills Protein [Mass/Vol] 7.8 g/dL Normal 6.4-8.2 [facility] Comment on above: Performed By: #### C BC #### [facility] [address] [place] [address] Dr. Ashlie Hills Sodium [Moles/Vol] 142 mmol/L Normal 136-145 [facility] Comment on above: Performed By: #### C BC #### [facility] [address] [place] [address] Dr. Ashlie Hills Urea nitrogen [Mass/Vol] 12.0 mg/dL Normal 7.0-18.0 [facility] Comment on above: Performed By: #### C BC #### [facility] [address] [place] [address] Dr. Ashlie Hills Urea nitrogen/Creatinine [Mass ratio] 19.4 mg/mg Normal [facility] Comment on above: Performed By: #### C BC #### [facility] [address] [place] [address] Dr. Ashlie Hills URINE MICROSCOPIC ONLYon BACTERIA TRACE Abnormal NONE SEEN [facility] Comment on above: Performed By: #### P OCGLUC #### [facility] [address] [place] [address] Dr. Ashlie Hills Bacteria identified Cx Nom (U) NOT INDICATED Normal [facility] Comment on above: Performed By: #### P OCGLUC #### [facility] [address] [place] [address] Dr. Ashlie Hills CAST NONE SEEN Normal NONE SEEN [facility] Comment on above: Performed By: #### P OCGLUC #### [facility] [address] [place] [address] Dr. Ashlie Hills Crystals LM Nom (Urine sed) NONE SEEN Normal NONE SEEN [facility] Comment on above: Performed By: #### P OCGLUC #### [facility] [address] [place] [address] Dr. Ashlie Hills Epithelial cells LM Ql (Urine sed) MODERATE Abnormal NONE SEEN /RARE [facility] Comment on above: Performed By: #### P OCGLUC #### [facility] [address] [place] [address] Dr. Ashlie Hills MUCOUS NONE SEEN Normal NONE SEEN [facility] Comment on above: Performed By: #### P OCGLUC #### [facility] [address] [place] [address] Dr. Ashlie Hills RBC 0-2 Normal 0-2 [facility] Comment on above: Performed By: #### P OCGLUC #### [facility] [address] [place] [address] Dr. Ashlie Hills WBC 0-2 Abnormal NONE SEEN [facility] Comment on above: Performed By: #### P OCGLUC #### [facility] [address] [place] [address] Dr. Ashlie Hills Covid-19 PCR ([facility])on 09-06 SARS-CoV-2 (COVID-19) RNA MADDY+probe Ql (Unsp spec) Detected Abnormal NOT DETECTED [facility] Comment on above: Result Comment: This test is not yet approved or cleared by the [place] FDA. When there are no FDA-approved or cleared tests available, and other criteria are met, FDA can make tests available under an emergency access mechanism called an Emergency Use Authorization (EUA). The EUA for this test is supported by the [place] of Health and Human Service's declaration that [...] By: #### C VDAGS #### [facility] [address] [place] [address] Dr. Ashlie Hills INFLUENZA A AND B AGon 09-21 INFLUANEGH SEE BELOW Normal [facility] Comment on above: Result Comment: Nega tive for Flu A protein angiten. Infection due to Flu A cannot be ruled out. Flu A angiten in the sample may be below the detection limit of the test. Performed By: #### I NFLUAB #### [facility] [address] [place] [address] Dr. Ashlie Hills INFLUBNEGH SEE BELOW Normal [facility] Comment on above: Result Comment: Nega tive for Flu B protein antigen. Infection due to Flu B cannot be ruled out. Flu B antigen in the sample may be below the detection limit of the test. Performed By: #### I NFLUAB #### [facility] [address] [place] [address] Dr. Ashlie Hills INFLUENZA A AG Negative Normal NEGATIVE SEE COMMENT [facility] Comment on above: Performed By: #### I NFLUAB #### [facility] [address] [place] [address] Dr. Ashlie Hills INFLUENZA B AG Negative Normal NEGATIVE SEE COMMENT [facility] Comment on above: Performed By: #### I NFLUAB #### [facility] [address] [place] [address] ABD/PELV W CONon [...] to at least 10/21/2018, unchanged. https://www.ncbi.nlm .nih.gov/pmc/article s/[email or web address] Electronically authenticated by: COLLIN HUERTAS Date: 2022-07-27 14:56 Normal [facility] CREATININEon 07-18-2022 Creatinine [Mass/Vol] 0.81 mg/dL Normal 0.55-1.02 [facility] Comment on above: Performed By: #### C BC #### [facility] [address] [place] [address] Dr. Ashlie Hills EGFR-AF SUDANESE >60 Normal >=60 [facility] Comment on above: Performed By: #### C BC #### [facility] [address] [place] [address] Dr. Ashlie Hills EGFR-NON AF SUDANESE >60 Normal >=60 [facility] Comment on above: Performed By: #### C BC #### [facility] [address] [place] [address] LOW EXT W [...] PATRICIA VELOZ Date: 2022-07-18 14:58 Normal [facility] XR KNEE LT 1_2 Von 3 XR [...] Date: 2022-07-18 12:00 Normal [facility] Covid-19 PCR [facility]on 06-09 SARS-CoV-2 (COVID-19) RNA MADDY+probe Ql (Unsp spec) Not detected Normal NOT DETECTED [facility] Comment on above: Result Comment: This test is not yet approved or cleared by the [place] FDA. When there are no FDA-approved or cleared tests available, and other criteria are met, FDA can make tests available under an emergency access mechanism called an Emergency Use Authorization (EUA). The EUA for this test is supported by the [place] of Health and Human Service's (HHS's) declaration [...] By: #### C BC #### [facility] [address] [place] [address] Dr. Ashlie Hills INFLUENZA A AND B [facility] 07-06 [facility] SEE BELOW Normal [facility] Comment on above: Result Comment: Nega tive for Flu A protein angiten. Infection due to Flu A cannot be ruled out. Flu A angiten in the sample may be below the detection limit of the test. Performed By: #### C BC #### [facility] [address] [address] [address] Ashlie Hills [facility] SEE BELOW Normal [facility] Comment on above: Result Comment: Nega tive for Flu B protein antigen. Infection due to Flu B cannot be ruled out. Flu B antigen in the sample may be below the detection limit of the test. Performed By: #### C BC #### [facility] [address] [place] [address] Dr. Ashlie Hills INFLUENZA A AG Negative Normal NEGATIVE SEE COMMENT [facility] Comment on above: Performed By: #### C BC #### [facility] [address] [place] [address] Dr. Ashlie Hills INFLUENZA B AG Negative Normal NEGATIVE SEE COMMENT [facility] Comment on above: Performed By: #### C BC #### [facility] [address] [place] [address] Dr. Ashlie Hills POINT OF CARE GLUCOSEon 10- Glucose [Mass/Vol] 108 mg/dL Critically high 74-106 [facility] Comment on above: Performed By: #### C BC #### [facility] [address] [place] [address] Dr. Ashlie Hills RAGHU by IFAon 03-07-2022 Antinuclear Antibodies, IFA Negative Normal [facility] Comment on above: Result Comment: Nega tive <1:80 Borderline 1:80 Positive >1:80 ICAP nomenclature: AC-0 For more information about Hep-2 cell patterns use ANApatterns.org, the official website for the International Consensus on Antinuclear Antibody (RAGHU) Patterns (ICAP). Performed By: #### A NAIFA #### [facility] [address] [place] [address] Dr. Ashlie Hills IMMUNOFIXATION (TREVON), URINEo n 03-07-2022 TREVON Interpretation:U Comment Normal [facility] Comment on above: Result Comment: No m onoclonality detected. Performed By: #### C BC #### [facility] [address] [place] [address] Dr. Ashlie Hills IMMUNOFIXATION(TREVON),PROTEIN ELEC(PE),FREon 03-07-2022 Albumin [Mass/Vol] 3.0 g/dL Normal 2.9-4.4 [facility] Comment on above: Performed By: #### I NFLUAB #### [facility] [address] [place] [address] Dr. Ashlie Hills Albumin/Globulin [Mass ratio] 0.8 {ratio} Normal 0.7-1.7 [facility] Comment on above: Performed By: #### I NFLUAB #### [facility] [address] [place] [address] Dr. Ashlie Hills Qdons-3-Cvsaiegp 0.3 g/dL Normal 0.0-0.4 [facility] Comment on above: Performed By: #### I NFLUAB #### [facility] [address] [place] [address] Dr. Ashlie Hills Urbvm-6-Xeqntuly 1.0 g/dL Normal 0.4-1.0 [facility] Comment on above: Performed By: #### I NFLUAB #### [facility] [address] [place] [address] Dr. Ashlie Hills Beta Globulin 1.8 g/dL Critically high 0.7-1.3 [facility] Comment on above: Performed By: #### I NFLUAB #### [facility] [address] [place] [address] Dr. Ashlie Hills Free [place] Lt Chains,S 45.2 mg/L Critically high 3.3-19.4 [facility] Comment on above: Performed By: #### I NFLUAB #### [facility] [address] [place] [address] Dr. Ashlie Hills Free Lambda Lt Chains,S 40.3 mg/L Critically high 5.7-26. 3 [facility] Comment on above: Performed By: #### I NFLUAB #### [facility] [address] [place] [address] Dr. Ashlie Hills Gamma Globulin 0.8 g/dL Normal 0.4-1.8 [facility] Comment on above: Performed By: #### I NFLUAB #### [facility] [address] [place] [address] Dr. Ashlie Hills Globulin (S) [Mass/Vol] 3.9 g/dL Normal 2.2-3.9 [facility] Comment on above: Performed By: #### I NFLUAB #### [facility] [address] [place] [address] Dr. Ashlie Hills Immunofixation Result, Serum Comment Normal [facility] Comment on above: Result Comment: No m onoclonality detected. Performed By: #### I NFLUAB #### [facility] [address] [address] [address] Ashlie Hills Immunoglobulin A, Qn, Serum 776 mg/dL Critically high 87-352 [facility] Comment on above: Performed By: #### I NFLUAB #### [facility] [address] [address] [address] Ashlie Hills Immunoglobulin G, Qn, Serum 955 mg/dL Normal 586-1602 [facility] Comment on above: Performed By: #### I NFLUAB #### [facility] [address] [address] [address] Ashlie Hills Immunoglobulin M, Qn, Serum 39 mg/dL Normal 26-217 [facility] Comment on above: Performed By: #### I NFLUAB #### [facility] [address] [address] [address] Ashlie Hills [place]/Lambda Ratio, S 1.12 Normal 0.26-1.65 [facility] Comment on above: Performed By: #### I NFLUAB #### [facility] [address] [address] [address] Ashlie Hills M-Bright Not Observed Normal Not Observed [facility] Comment on above: Performed By: #### I NFLUAB #### [facility] [address] [address] [address] Ashlie Hills PDF . Normal [facility] Comment on above: Performed By: #### I NFLUAB #### [facility] [address] [address] [address] Ashlie Hills Please note: Comment Normal [facility] Comment on above: Result Comment: Prot ein electrophoresis scan will follow via computer, mail, or severity of illness coordinator delivery. Performed By: #### I NFLUAB #### [facility] [address] [address] [address] Ashlie Hills Protein [Mass/Vol] 6.9 g/dL Normal 6.0-8.5 [facility] Comment on above: Performed By: #### I NFLUAB #### [facility] [address] [place] [address] Dr. Ashlie Hills C-PEPTIDE, SERUMon C-Peptide, Serum 3.1 ng/mL Normal 1.1-4.4 [facility] Comment on above: Result Comment: C-Pe ptide reference interval is for fasting patients. Performed By: #### C PEPT #### [facility] [address] [place] [address] Dr. Ashlie Hills HEP B SURFACE ANTIGEN SCREEN on 03-04-2022 HBsAg Screen Negative Normal Negative [facility] Comment on above: Performed By: #### C BC #### [facility] [address] [place] [address] Dr. Ashlie Hills HEPATITIS C VIRUS AB W/ REFL EX QUANTon 03-04-2022 HCV AB <0.1 Normal 0.0-0.9 [facility] Comment on above: Performed By: #### I NFLUAB #### [facility] [address] [place] [address] Dr. Ashlie Hills Interpretation: Comment Normal [facility] Comment on above: Result Comment: Nega tive Not infected with HCV, unless recent infection is suspected or other evidence exists to indicate HCV infection. Performed By: #### I NFLUAB #### [facility] [address] [place] [address] Dr. Ashlie Hills MICROALBUMIN/ CREATININE RAT IOon 03-04-2022 Albumin, Urine 367.4 ug/mL Normal Not Estab. [facility] Comment on above: Performed By: #### C BC #### [facility] [address] [address] [address] Ashlie Hills Albumin/ Creatinine Ratio 239 mg/g creat Critically high 0-29 [facility] Comment on above: Result Comment: Norm al: 0 - 29 Moderately increased: 30 - 300 Severely increased: >300 Performed By: #### C BC #### [facility] [address] [place] [address] Dr. Ashlie Hills Creatinine, Urine 153.9 mg/dL Normal Not Estab. [facility] Comment on above: Performed By: #### C BC #### [facility] [address] [address] [address] Ashlie Hills VIT D 25-OH LABCORPon 2021 Vitamin D, 25-Hydroxy <4.0 Critically low 30.0-100.0 [facility] Comment on above: Result Comment: Graciela min D deficiency has been defined by the [place] of [employer] and an Endocrine Society practice guideline as a level of serum 25-OH vitamin D less than 20 ng/mL (1,2). The Endocrine Society went on to further define vitamin D insufficiency as a level between 21 and 29 ng/mL (2). 1. IOM ([place] of [employer]). 2010. Dietary reference intakes for calcium and D. [place]: The National Academies Press. 2. Lynda MF, Keely [place], Leandra LOPEZ, et al. Evaluation, treatment, and prevention of vitamin D deficiency: an Endocrine Society clinical practice guideline. JCEM. 2010; 96(7):1911-30. Performed By: #### C BC #### [facility] [address] [address] [address] Ashlie Hills GLYCOHEMOGLOBIN A1Con 2021 ADA RECOMMENDATION SEE BELOW Normal [facility] Comment on above: Result Comment: ADA RECOMMENDED LIMIT 4.0 - 6.0 ADA THERAPEUTIC TARGET < 7.0 ACTION SUGGESTED > 7.0 Performed By: #### C VDAGS #### [facility] [address] [address] [address] Ashlie Hills Glucose [Mass/Vol] 295 mg/dL Normal [facility] Comment on above: Performed By: #### C VDAGS #### [facility] [address] [address] [address] Ashlie Hills HbA1c (Bld) [Mass fraction] 11.9 % Critically high 4.5-6.2 [facility] Comment on above: Performed By: #### C VDAGS #### [facility] [address] [address] [address] Ashlie Hills HEMOGRAM AND PLATELon 2021 Hematocrit (Bld) [Volume fraction] 56.3 % Critically high 36.0-48.0 [facility] Comment on above: Performed By: #### C VDAGS #### [facility] [address] [place] [address] Dr. Ashlie Hills Hemoglobin (Bld) [Mass/Vol] 18.0 g/dL Critically high 12.0-16.0 [facility] Comment on above: Performed By: #### C VDAGS #### [facility] [address] [place] [address] Dr. Ashlie Hills MCH (RBC) [Entitic mass] 29.5 pg Normal 26.7-34.0 [facility] Comment on above: Performed By: #### C VDAGS #### [facility] [address] [place] [address] Dr. Ashlie Hills MCHC (RBC) [Mass/Vol] 32.0 g/dL Normal 29.9-35.2 [facility] Comment on above: Performed By: #### C VDAGS #### [facility] [address] [place] [address] Dr. Ashlie Hills MCV (RBC) [Entitic vol] 92.1 fL Normal 81.0-99.0 [facility] Comment on above: Performed By: #### C VDAGS #### [facility] [address] [place] [address] Dr. Ashlie Hills PLT 123 103/ul Critically low 150-450 [facility] Comment on above: Performed By: #### C VDAGS #### [facility] [address] [place] [address] Dr. Ashlie Hills RBC 6.11 106/ul Critically high 4.20-5.40 [facility] Comment on above: Performed By: #### C VDAGS #### [facility] [address] [place] [address] Dr. Ashlie Hills WBC 16.4 103/ul Critically high 4.0-11.0 [facility] Comment on above: Performed By: #### C VDAGS #### [facility] [address] [address] [address] Ashlie Hills LIPID PROFILEon 03-03-2022 CHOL-HDL RATIO NORM SEE BELOW Normal [facility] Comment on above: Result Comment: 3.3 - 4.4 LOW RISK 4.4 - 7.1 AVERAGE RISK 7.1 - 11.0 MODERATE RISK >11.0 HIGH RISK Performed By: #### C VDAGS #### [facility] [address] [address] [address] Ashlie Hills Cholesterol [Mass/Vol] 159 mg/dL Normal <=200 [facility] Comment on above: Performed By: #### C VDAGS #### [facility] [address] [address] [address] Ashlie Hills Cholesterol in HDL [Mass/Vol] 40 mg/dL Normal 40-60 [facility] Comment on above: Performed By: #### C VDAGS #### [facility] [address] [address] [address] Ashlie Hills Cholesterol in LDL [Mass/Vol] 81.8 mg/dL Normal [facility] Comment on above: Performed By: #### C VDAGS #### [facility] [address] [address] [address] Ashlie Hills Cholesterol.total/Choles terol in HDL [Mass ratio] 4.0 {ratio} Normal [facility] Comment on above: Performed By: #### C VDAGS #### [facility] [address] [address] [address] Ashlie Hills HDL NORMAL > or = 60 mg/dl - LOW CARDIOVASCULAR RISK <40 mg/dl - HIGH CARDIOVASCULAR RISK Normal [facility] Comment on above: Performed By: #### C VDAGS #### [facility] [address] [place] [address] Dr. Ashlie Hills LDL CALC NORMAL SEE BELOW Normal [facility] Comment on above: Result Comment: <100 mg/dl OPTIMAL 100 - 129 mg/dl NEAR OR ABOVE OPTIMAL 130 - 159 mg/dl BORDERLINE HIGH 160 - 189 mg/dl HIGH >190 mg/dl VERY HIGH Performed By: #### C VDAGS #### [facility] [address] [address] [address] Ashlie Hills Triglyceride [Mass/Vol] 186 mg/dL Critically high <=150 [facility] Comment on above: Performed By: #### C VDAGS #### [facility] [address] [address] [address] Ashlie Hills VLDL CALC 37.2 mg/dL Normal [facility] Comment on above: Performed By: #### C VDAGS #### [facility] [address] [address] [address] Ashlie Hills RENAL FUNCTION PANELon 03-03 Albumin [Mass/Vol] 3.1 g/dL Critically low 3.4-5.0 [facility] Comment on above: Performed By: #### C BC #### [facility] [address] [place] [address] Dr. Ashlie Hills Calcium [Mass/Vol] 9.2 mg/dL Normal 8.5-10.1 [facility] Comment on above: Performed By: #### C BC #### [facility] [address] [place] [address] Dr. Ashlie Hills Chloride [Moles/Vol] 102 mmol/L Normal 98-107 [facility] Comment on above: Performed By: #### C BC #### [facility] [address] [place] [address] Dr. Ashlie Hills CO2 [Moles/Vol] 31.9 mmol/L Normal 21.0-32.0 [facility] Comment on above: Performed By: #### C BC #### [facility] [address] [place] [address] Dr. Ashlie Hills Creatinine [Mass/Vol] 0.68 mg/dL Normal 0.55-1.02 [facility] Comment on above: Performed By: #### C BC #### [facility] [address] [place] [address] Dr. Ashlie Hills EGFR-AF SUDANESE >60 Normal >=60 [facility] Comment on above: Performed By: #### C BC #### [facility] [address] [place] [address] Dr. Ashlie Hills EGFR-NON AF SUDANESE >60 Normal >=60 [facility] Comment on above: Performed By: #### C BC #### [facility] [address] [address] [address] Ashlie Hills Glucose [Mass/Vol] 131 mg/dL Critically high 74-106 [facility] Comment on above: Performed By: #### C BC #### [facility] [address] [address] [address] Ashlie Hills Phosphate [Mass/Vol] 4.0 mg/dL Normal 2.6-4.7 [facility] Comment on above: Performed By: #### C BC #### [facility] [address] [place] [address] Dr. Ashlie Hills Potassium [Moles/Vol] 4.0 mmol/L Normal 3.5-5.1 [facility] Comment on above: Performed By: #### C BC #### [facility] [address] [place] [address] Dr. Ashlie Hills Sodium [Moles/Vol] 141 mmol/L Normal 136-145 [facility] Comment on above: Performed By: #### C BC #### [facility] [address] [place] [address] Dr. Ashlie Hills Urea nitrogen [Mass/Vol] 17.0 mg/dL Normal 7.0-18.0 [facility] Comment on above: Performed By: #### C BC #### [facility] [address] [place] [address] Dr. Ashlie Hills UA RANDOM W/MICROSCOPICon BACTERIA NONE SEEN Normal NONE SEEN [facility] Comment on above: Performed By: #### I NFLUAB #### [facility] [address] [place] [address] Dr. Ashlie Hills Bilirubin Ql (U) Negative Normal NEGATIVE [facility] Comment on above: Performed By: #### I NFLUAB #### [facility] [address] [place] [address] Dr. Ashlie Hills CAST NONE SEEN Normal NONE SEEN [facility] Comment on above: Performed By: #### I NFLUAB #### [facility] [address] [place] [address] Dr. Ashlie Hills Clarity (U) CLEAR Normal CLEAR [facility] Comment on above: Performed By: #### I NFLUAB #### [facility] [address] [address] [address] Ashlie Hills Color (U) YELLOW Normal YELLOW [facility] Comment on above: Performed By: #### I NFLUAB #### [facility] [address] [address] [address] Ashlie Hills Crystals LM Nom (Urine sed) NONE SEEN Normal NONE SEEN [facility] Comment on above: Performed By: #### I NFLUAB #### [facility] [address] [place] [address] Dr. Ashlie Hills Epithelial cells LM Ql (Urine sed) FEW Abnormal NONE SEEN /RARE [facility] Comment on above: Performed By: #### I NFLUAB #### [facility] [address] [place] [address] Dr. Ashlie Hills Glucose Ql (U) Negative Normal NEGATIVE [facility] Comment on above: Performed By: #### I NFLUAB #### [facility] [address] [place] [address] Dr. Ashlie Hills Hemoglobin Ql (U) Negative Normal NEGATIVE [facility] Comment on above: Performed By: #### I NFLUAB #### [facility] [address] [place] [address] Dr. Ashlie Hills Ketones Ql (U) Negative Normal NEGATIVE [facility] Comment on above: Performed By: #### I NFLUAB #### [facility] [address] [address] [address] Ashlie Hills LEUKOCYTES Negative Normal NEGATIVE [facility] Comment on above: Performed By: #### I NFLUAB #### [facility] [address] [place] [address] Dr. Ashlie Hills MUCOUS NONE SEEN Normal NONE SEEN [facility] Comment on above: Performed By: #### I NFLUAB #### [facility] [address] [address] [address] Ashlie Hills Nitrite Ql (U) Negative Normal NEGATIVE [facility] Comment on above: Performed By: #### I NFLUAB #### [facility] [address] [place] [address] Dr. Ashlie Hills pH (U) 5.5 [pH] Normal 5-9 [facility] Comment on above: Performed By: #### I NFLUAB #### [facility] [address] [place] [address] Dr. Ashlie Hills RBC 0-2 Normal 0-2 [facility] Comment on above: Performed By: #### I NFLUAB #### [facility] [address] [place] [address] Dr. Ashlie Hills SPEC GRAVITY >=1.030 Abnormal 1.005-<=1.02 5 [facility] Comment on above: Performed By: #### I NFLUAB #### [facility] [address] [place] [address] Dr. Ashlie Hills UA PROTEIN 100 mg/dl Abnormal NEGATIVE/ TRACE [facility] Comment on above: Performed By: #### I NFLUAB #### [facility] [address] [place] [address] Dr. Ashlie Hills Urobilinogen Qn (U) 0.2 {Little'U}/dL Normal 0.2 - 1. 0 [facility] Comment on above: Performed By: #### I NFLUAB #### [facility] [address] [place] [address] Dr. Ashlie Hills WBC NONE SEEN Normal NONE SEEN [facility] Comment on above: Performed By: #### I NFLUAB #### [facility] [address] [place] [address] Dr. Ashlie Hills URIC ACID SERUMon 03-03-2022 Urate [Mass/Vol] 5.0 mg/dL Normal 2.6-6.0 [facility] Comment on above: Performed By: #### I NFLUAB #### [facility] [address] [place] [address] Dr. Ashlie Hills URINE T PROTEIN CREAT RATIOo n 03-03-2022 Protein (U) [Mass/Vol] 77.9 mg/dL Critically high <=12.0 [facility] Comment on above: Performed By: #### C VDAGS #### [facility] [address] [place] [address] Dr. Ashlie Hills UR PROT CREAT RAT 0.44 Normal [facility] Comment on above: Performed By: #### C VDAGS #### [facility] [address] [place] [address] Dr. Ashlie iHlls URINE CREAT 175.15 mg/dL Normal 20.00-300.00 [facility] Comment on above: Performed By: #### C VDAGS #### [facility] [address] [place] [address] Dr. Ashlie Hills CULTURE URINEon 12-25-2021 CULTURE URINE Culture Observations: GREATER THAN TWO ORGANISMS PRESENT, HEAVILY MIXED. PLEASE RESUBMIT CLEAN CATCH MID-STREAM URINE IF CLINICALLY INDICATED. Normal [facility] Comment on above: Performed By: #### I NFLUAB #### [facility] [address] [place] [address] Dr. Ashlie Hills CBC AUTO DIFFon 12-24-2021 BASO # 0.1 103/ul Normal 0.0-0.1 [facility] Comment on above: Performed By: #### C BC #### [facility] [address] [place] [address] Dr. Ashlie Hills Basophils/100 WBC (Bld) 0.5 % Normal 0.2-2.0 [facility] Comment on above: Performed By: #### C BC #### [facility] [address] [place] [address] Dr. Ashlie Hills EO # 0.4 103/ul Normal 0.0-0.7 [facility] Comment on above: Performed By: #### C BC #### [facility] [address] [place] [address] Dr. Ashlie Hills Eosinophils/100 WBC (Bld) 2.4 % Normal 0.9-7.0 [facility] Comment on above: Performed By: #### C BC #### [facility] [address] [place] [address] Dr. Ashlie Hills Erythrocyte distribution width (RBC) [Ratio] 14.1 % Normal 11.0-15.0 [facility] Comment on above: Performed By: #### C BC #### [facility] [address] [place] [address] Dr. Ashlie Hills Hematocrit (Bld) [Volume fraction] 55.9 % Critically high 36.0-48.0 [facility] Comment on above: Performed By: #### C BC #### [facility] Laboratory [address] [place] [address] Dr. Ashlie Hills Hemoglobin (Bld) [Mass/Vol] 17.9 g/dL Critically high 12.0-16.0 [facility] Comment on above: Performed By: #### C BC #### [facility] [address] [place] [address] Dr. Ashlie Hills IG # 0.06 10e3/ul Critically high 0.00-0.03 [facility] Comment on above: Performed By: #### C BC #### [facility] [address] [place] [address] Dr. Ashlie Hills IG % 0.4 % Normal 0.0-0.5 [facility] Comment on above: Performed By: #### C BC #### [facility] [address] [place] [address] Dr. Ashlie Hills LYMPH # 5.8 103/ul Critically high 1.2-3.8 [facility] Comment on above: Performed By: #### C BC #### [facility] [address] [place] [address] Dr. Ashlie Hills Lymphocytes/100 WBC (Bld) 35.4 % Normal 20.5-60.0 [facility] Comment on above: Performed By: #### C BC #### [facility] [address] [place] [address] Dr. Ashlie Hills MANUAL DIFF REQ NO Normal [facility] Comment on above: Performed By: #### C BC #### [facility] [address] [place] [address] Dr. Ashlie Hills MCH (RBC) [Entitic mass] 29.4 pg Normal 26.7-34.0 [facility] Comment on above: Performed By: #### C BC #### [facility] [address] [place] [address] Dr. Ashlie Hills MCHC (RBC) [Mass/Vol] 32.0 g/dL Normal 29.9-35.2 [facility] Comment on above: Performed By: #### C BC #### [facility] [address] [place] [address] Dr. Ashlie Hills MCV (RBC) [Entitic vol] 91.8 fL Normal 81.0-99.0 [facility] Comment on above: Performed By: #### C BC #### [facility] [address] [place] [address] Dr. Ashlie Hills MONO # 0.8 103/ul Normal 0.3-0.8 [facility] Comment on above: Performed By: #### C BC #### [facility] [address] [place] [address] Dr. Ashlie Hills Monocytes/100 WBC (Bld) 4.8 % Normal 1.7-12.0 [facility] Comment on above: Performed By: #### C BC #### [facility] [address] [place] [address] Dr. Ashlie Hills NEUT # 9.3 103/ul Critically high 1.4-6.5 [facility] Comment on above: Performed By: #### C BC #### [facility] [address] [place] [address] Dr. Ashlie Hills Neutrophils/100 WBC (Bld) 56.5 % Normal 43.0-75.0 [facility] Comment on above: Performed By: #### C BC #### [facility] [address] [place] [address] Dr. Ashlie Hills Platelet mean volume (Bld) [Entitic vol] 12.9 fL Normal 9.5-13.5 [facility] Comment on above: Performed By: #### C BC #### [facility] [address] [address] [address] Ashlie Hills PLT 127 103/ul Critically low 150-450 [facility] Comment on above: Performed By: #### C BC #### [facility] [address] [address] [address] Ashlie Hills RBC 6.09 106/ul Critically high 4.20-5.40 [facility] Comment on above: Performed By: #### C BC #### [facility] [id number] Ashlie Hills WBC 16.4 103/ul Critically high 4.0-11.0 [facility] Comment on above: Performed By: #### C BC #### [facility] [address] [place] [address] ABD/PELVIS WO CONon [...] hip degenerative change. Normal [facility] ER URINE PROFILEon 2 Bilirubin Ql (U) Negative Normal NEGATIVE [facility] Comment on above: Performed By: #### EVONNE DIAZ #### [facility] [address] [place] [address] Dr. Ashlie Hills Clarity (U) CLEAR Normal CLEAR [facility] Comment on above: Performed By: #### E EVONNE LYMAN #### [facility] [address] [address] [address] Ashlie Hills Color (U) DK. ORANGE Abnormal YELLOW [facility] Comment on above: Performed By: #### E EVONNE LYMAN #### [facility] [address] [address] [address] Ashlie Hills ERUAHD A micrscopic examination will be performed if indicated. Normal [facility] Comment on above: Performed By: #### E NURA UMICRO #### [facility] [address] [place] [address] Dr. Ashlie Hills Glucose Ql (U) 250 mg/dl Abnormal NEGATIVE [facility] Comment on above: Performed By: #### E NURA, UMICRO #### [facility] [address] [place] [address] Dr. Ashlie Hills Hemoglobin Ql (U) Negative Normal NEGATIVE [facility] Comment on above: Performed By: #### E RUR, UMICRO #### [facility] [address] [place] [address] Dr. Ashlie Hills Ketones Ql (U) Negative Normal NEGATIVE [facility] Comment on above: Performed By: #### E NURA, UMICRO #### [facility] [address] [place] [address] Dr. Ashlie Hills LEUKOCYTES Negative Normal NEGATIVE [facility] Comment on above: Performed By: #### Tracey LYMAN, UMICRO #### [facility] [address] [place] [address] Dr. Ashlie Hills Nitrite Ql (U) Negative Normal NEGATIVE [facility] Comment on above: Performed By: #### Tracey LYMAN, UMICRO #### [facility] [address] [place] [address] Dr. Ashlie Hills pH (U) 5.0 [pH] Normal 5-9 [facility] Comment on above: Performed By: #### E NURA, UMICRO #### [facility] [address] [place] [address] Dr. Ashlie Hills Protein (U) [Mass/Vol] 100 mg/dL Abnormal NEGAT YURY/ TRACE [facility] Comment on above: Performed By: #### E RUR, UMICRO #### [facility] [address] [place] [address] Dr. Ashlie Hills SPEC GRAVITY >=1.030 Abnormal 1.005-<=1.02 5 [facility] Comment on above: Performed By: #### EVONNE DIAZ #### [facility] [address] [place] [address] Dr. Ashlie Hills UR MICRO IND INDICATED Normal [facility] Comment on above: Performed By: #### EVONNE DIAZ #### [facility] [address] [place] [address] Dr. Ashlie Hills Urobilinogen Qn (U) 1.0 {Little'U}/dL Normal 0.2 - 1. 0 [facility] Comment on above: Performed By: #### EVONNE DIAZ #### [facility] [address] [place] [address] Dr. Ashlie Hills PROF CHEM 8 (BAS METB)on Anion gap [Moles/Vol] 12.1 mmol/L Normal [facility] Comment on above: Performed By: #### I NFLUAB #### [facility] [address] [place] [address] Dr. Ashlie Hills Calcium [Mass/Vol] 9.0 mg/dL Normal 8.5-10.1 [facility] Comment on above: Performed By: #### I NFLUAB #### [facility] [address] [place] [address] Dr. Ashlie Hills Chloride [Moles/Vol] 101 mmol/L Normal 98-107 [facility] Comment on above: Performed By: #### I NFLUAB #### [facility] [address] [place] [address] Dr. Ashlie Hills CO2 [Moles/Vol] 29.1 mmol/L Normal 21.0-32.0 [facility] Comment on above: Performed By: #### I NFLUAB #### [facility] [address] [place] [address] Dr. Ashlie Hills Creatinine [Mass/Vol] 0.86 mg/dL Normal 0.55-1.02 [facility] Comment on above: Performed By: #### I NFLUAB #### [facility] [address] [place] [address] Dr. Ashlie Hills EGFR-AF SUDANESE >60 Normal >=60 [facility] Comment on above: Performed By: #### I NFLUAB #### [facility] [address] [place] [address] Dr. Ashlie Hills EGFR-NON AF SUDANESE >60 Normal >=60 [facility] Comment on above: Performed By: #### I NFLUAB #### [facility] [address] [address] [address] Ashlie Hills Glucose [Mass/Vol] 236 mg/dL Critically high 74-106 [facility] Comment on above: Performed By: #### I NFLUAB #### [facility] [address] [address] [address] Ashlie Hills Potassium [Moles/Vol] 4.2 mmol/L Normal 3.5-5.1 [facility] Comment on above: Performed By: #### I NFLUAB #### [facility] [address] [address] [address] Ashlie Hills Sodium [Moles/Vol] 138 mmol/L Normal 136-145 [facility] Comment on above: Performed By: #### I NFLUAB #### [facility] [address] [place] [address] Dr. Ashlie Hills Urea nitrogen [Mass/Vol] 11.0 mg/dL Normal 7.0-18.0 [facility] Comment on above: Performed By: #### I NFLUAB #### [facility] [address] [place] [address] Dr. Ashlie Hills Urea nitrogen/Creatinine [Mass ratio] 12.8 mg/mg Normal [facility] Comment on above: Performed By: #### I NFLUAB #### [facility] [address] [address] [address] Ashlie Hills URINE MICROSCOPIC ONLYon BACTERIA SMALL Abnormal NONE SEEN [facility] Comment on above: Performed By: #### E EVONNE LYMAN #### [facility] [address] [address] [address] Ashlie Hills Bacteria identified Cx Nom (U) INDICATED Normal [facility] Comment on above: Performed By: #### E JIMMYR, UMICRO #### [facility] [address] [place] [address] Dr. Ashlie Hills CAST NONE SEEN Normal NONE SEEN [facility] Comment on above: Performed By: #### E RUR, UMICRO #### [facility] [address] [place] [address] Dr. Ashlie Hills Crystals LM Nom (Urine sed) NONE SEEN Normal NONE SEEN [facility] Comment on above: Performed By: #### E RUR, UMICRO #### [facility] [address] [place] [address] Dr. Ashlie Hills Epithelial cells LM Ql (Urine sed) MODERATE Abnormal NONE SEEN /RARE [facility] Comment on above: Performed By: #### E RUR, UMICRO #### [facility] [address] [place] [address] Dr. Ashlie Hills MUCOUS NONE SEEN Normal NONE SEEN [facility] Comment on above: Performed By: #### Tracey LYMAN, UMICRO #### [facility] [address] [place] [address] Dr. Ashlie Hills RBC 0-2 Normal 0-2 [facility] Comment on above: Performed By: #### Tracey LYMAN, UMICRO #### [facility] [address] [place] [address] Dr. Ashlie Hills WBC 0-2 Abnormal NONE SEEN [facility] Comment on above: Performed By: #### Tracey LYMAN UMICRO #### [facility] [address] [place] [address] Dr. Ashlie Hills YEAST PRESENT Abnormal NONE SEEN [facility] Comment on above: Performed By: #### E NURA UMICRO #### [facility] [address] [place] [address] Dr. Ashlie Hills HIP RIGHT 1 OR 2 VWS WITH PE LVISon 07-20-2020 HIP RIGHT 1 OR 2 VWS WITH PELVIS [facility] Department of Radiology [address] [place] [address] Patient Name: MITZI MACIAS : 1970 Sex: F Age: Race: White Pt. Location: 84 Patient Status: O Ordered Date: 07/20/2020 1:45:00 PM Completed Date: 07/20/2020 01:57 PM Requesting Provider: LIZ EISENBERG Attending Provider: LIZ EISENBERG Report Copy To: MCKAYLA BLAS Signs & Symptoms: M25.551 Pain in right hip I10 History: [place] Comments: evaluate Exam: HIP RIGHT 1 OR [...] MRI. Electronically signed: Pipo Acevedo. Transcribed by: [email or web address], User Resident: Electronically Signed by: PIPO ACEVEDO @ 07/20/2020 03:45 PM Normal [facility] Comment on above: Order Comment: evalu ate Vital Signs Date Time Vital Sign Value Performing Clinician Facility 04-06-2025 15:37-0400 Body temperature 98.1 [degF] Mckayla Blas NP-C Work Phone: [facility] 04-06-2025 15:37-0400 Diastolic blood pressure 84 mm[Hg] Mckayla Aichholz COW TESTER-C Work Phone: [facility] 04-06-2025 15:37-0400 Heart rate 81 /min Mckayla Blas COW TESTER-C Work Phone: [facility] 04-06-2025 15:37-0400 Respiratory rate 20 /min Mckaylajuvenal Rosenbergz COW TESTER-C Work Phone: [facility] 04-06-2025 15:37-0400 SaO2% (BldA) [Mass fraction] 92 % Mckaylajuvenal Rosenbergz COW TESTER-C Work Phone: [facility] 04-06-2025 15:37-0400 Systolic blood pressure 146 mm[Hg] Mckaylajuvenal Rosenbergz COW TESTER-C Work Phone: [facility] 01-29-2025 09:48-0400 Body height 170.2 cm Rain Souza MD Work Phone: [facility] 01-29-2025 09:48-0400 Body mass index (BMI) [Ratio] 56.38 kg/m2 Rain Souza MD Work Phone: [facility] 01-29-2025 09:48-0400 Body weight 163.29 kg Rain Souza MD Work Phone: [facility] 01-29-2025 09:48-0400 Diastolic blood pressure 70 mm[Hg] Rain Souza MD Work Phone: [facility] 01-29-2025 09:48-0400 Heart rate 72 /min Rain Souza MD Work Phone: [facility] 01-29-2025 09:48-0400 Respiratory rate 16 /min Rain Souza MD Work Phone: [facility] 01-29-2025 09:48-0400 SaO2% (BldA) [Mass fraction] 84 % Rain Souza MD Work Phone: [facility] 01-29-2025 09:48-0400 Systolic blood pressure 130 mm[Hg] Rain Souza MD Work Phone: [facility] 01-26-2025 18:11-0400 Body mass index (BMI) [Ratio] 58.64 kg/m2 Mckayla Aichholz COW TESTER Work Phone: [facility] 01-26-2025 18:11-0400 Body temperature 98.49 [degF] Mckayla Aichholz COW TESTER Work Phone: [facility] 01-26-2025 18:11-0400 Body weight 169.83 kg Mckayla Aichholz COW TESTER Work Phone: [facility] 01-26-2025 18:11-0400 Diastolic blood pressure 82 mm[Hg] Mckayla Aichholz COW TESTER Work Phone: [facility] 01-26-2025 18:11-0400 Heart rate 81 /min Mckayla Aichholz COW TESTER Work Phone: [facility] 01-26-2025 18:11-0400 Respiratory rate 20 /min Mckayla Aichholz COW TESTER Work Phone: [facility] 01-26-2025 18:11-0400 SaO2% (BldA) [Mass fraction] 90 % Mckayla Aichholz COW TESTER Work Phone: [facility] 01-26-2025 18:11-0400 Systolic blood pressure 126 mm[Hg] Mckayla Aichholz COW TESTER Work Phone: [facility] 12-09-2024 10:19-0400 Body temperature 98.01 [degF] Mckayla Aichholz COW TESTER Work Phone: [facility] 12-09-2024 10:19-0400 Diastolic blood pressure 76 mm[Hg] Mckayla Aichholz COW TESTER Work Phone: [facility] 12-09-2024 10:19-0400 Heart rate 71 /min Mckayla Aichholz COW TESTER Work Phone: [facility] 12-09-2024 10:19-0400 Respiratory rate 20 /min Mckayla Harshadholz COW TESTER Work Phone: [facility] 12-09-2024 10:19-0400 SaO2% (BldA) [Mass fraction] 88 % Mckayla Juanjosehholz COW TESTER Work Phone: [facility] 12-09-2024 10:19-0400 Systolic blood pressure 150 mm[Hg] Mckayla Aichholz COW TESTER Work Phone: [facility] 10-27-2024 14:11-0400 Body height 170.2 cm Mckayla Aichholz COW TESTER Work Phone: [facility] 10-27-2024 14:11-0400 Body mass index (BMI) [Ratio] 56.51 kg/m2 Mckayla Aichholz COW TESTER Work Phone: [facility] 10-27-2024 14:11-0400 Body temperature 98.71 [degF] Mckayla Juanjosehholz COW TESTER Work Phone: [facility] 10-27-2024 14:11-0400 Body weight 163.66 kg Mckayla Aichholz COW TESTER Work Phone: [facility] 10-27-2024 14:11-0400 Diastolic blood pressure 74 mm[Hg] Mckayla Aichholz COW TESTER Work Phone: [facility] 10-27-2024 14:11-0400 Heart rate 75 /min Mckayla Aichholz COW TESTER Work Phone: [facility] 10-27-2024 14:11-0400 Respiratory rate 18 /min Mckayla Aichholz COW TESTER Work Phone: [facility] 10-27-2024 14:11-0400 SaO2% (BldA) [Mass fraction] 90 % Mckayla Aichholz COW TESTER Work Phone: [facility] 10-27-2024 14:11-0400 Systolic blood pressure 132 mm[Hg] Mckayla Aichholz COW TESTER Work Phone: [facility] 10-08-2024 11:21-0400 Body height 170.2 cm Rain Souza MD Work Phone: [facility] 10-08-2024 11:21-0400 Body mass index (BMI) [Ratio] 55.91 kg/m2 Rain Souza MD Work Phone: [facility] 10-08-2024 11:21-0400 Body weight 161.93 kg Rain Souza MD Work Phone: [facility] 10-08-2024 11:21-0400 Diastolic blood pressure 70 mm[Hg] Rain Souza MD Work Phone: [facility] 10-08-2024 11:21-0400 Heart rate 70 /min Rain Souza MD Work Phone: [facility] 10-08-2024 11:21-0400 Respiratory rate 16 /min Rani Souza MD Work Phone: [facility] 10-08-2024 11:21-0400 SaO2% (BldA) [Mass fraction] 91 % Rain Souza MD Work Phone: [facility] 10-08-2024 11:21-0400 Systolic blood pressure 130 mm[Hg] Rain Souza MD Work Phone: [facility] 08-27-2024 17:44-0500 Body mass index (BMI) [Ratio] 57.31 kg/m2 Mckayla Blas COW TESTER Work Phone: [facility] 08-27-2024 17:44-0500 Body temperature 98.01 [degF] Mckayla Blas COW TESTER Work Phone: [facility] 08-27-2024 17:44-0500 Body weight 165.97 kg Mckayla Blas COW TESTER Work Phone: [facility] 08-27-2024 17:44-0500 Diastolic blood pressure 76 mm[Hg] Mckayla Blas COW TESTER Work Phone: [facility] 08-27-2024 17:44-0500 Heart rate 83 /min Mckayla Wan COW TESTER Work Phone: [facility] 08-27-2024 17:44-0500 Respiratory rate 18 /min Mckayla Wan COW TESTER Work Phone: [facility] 08-27-2024 17:44-0500 SaO2% (BldA) [Mass fraction] 91 % Mckayla Wan COW TESTER Work Phone: [facility] 08-27-2024 17:44-0500 Systolic blood pressure 134 mm[Hg] Mckayla Wan COW TESTER Work Phone: [facility] 06-11-2024 10:00-0500 Blood Pressure Location Elbert ARAUZ [facility] 06-11-2024 10:00-0500 Diastolic blood pressure 68 mm[Hg] Elbert ARAUZ [facility] 06-11-2024 10:00-0500 Heart rate 76 /min Elbert ARAUZ [facility] 06-11-2024 10:00-0500 Systolic blood pressure 132 mm[Hg] Elbert ARAUZ [facility] 05-27-2024 10:20-0500 Body height 170.2 cm Rain Souza MD Work Phone: [facility] 05-27-2024 10:20-0500 Body mass index (BMI) [Ratio] 56.7 kg/m2 Rain Souza MD Work Phone: [facility] 05-27-2024 10:20-0500 Body weight 164.2 kg Rain Souza MD Work Phone: [facility] 05-27-2024 10:20-0500 Diastolic blood pressure 66 mm[Hg] Rain Souza MD Work Phone: [facility] 05-27-2024 10:20-0500 Heart rate 72 /min Rain Souza MD Work Phone: [facility] 05-27-2024 10:20-0500 Respiratory rate 16 /min Rain Souza MD Work Phone: [facility] 05-27-2024 10:20-0500 Systolic blood pressure 128 mm[Hg] Rain Souza MD Work Phone: [facility] 04-14-2024 10:27-0400 Body height 165.1 cm Mckayla Aichholz COW TESTER Work Phone: [facility] 04-14-2024 10:27-0400 Body mass index (BMI) [Ratio] 61.01 kg/m2 Mckayla Aichholz COW TESTER Work Phone: [facility] 04-14-2024 10:27-0400 Body temperature 98.49 [degF] Mckayla Aichholz COW TESTER Work Phone: [facility] 04-14-2024 10:27-0400 Body weight 166.29 kg Mckayla Aichholz COW TESTER Work Phone: [facility] 04-14-2024 10:27-0400 Diastolic blood pressure 80 mm[Hg] Mckayla Aichholz COW TESTER Work Phone: [facility] 04-14-2024 10:27-0400 Heart rate 77 /min Mckayla Aichholz COW TESTER Work Phone: [facility] 04-14-2024 10:27-0400 Respiratory rate 19 /min Mckayla Aichholz COW TESTER Work Phone: [facility] 04-14-2024 10:27-0400 SaO2% (BldA) [Mass fraction] 92 % Mckayla Aichholz COW TESTER Work Phone: [facility] 04-14-2024 10:27-0400 Systolic blood pressure 116 mm[Hg] Mckayla Aichholz COW TESTER Work Phone: [facility] 03-08-2022 15:00-0400 Body height 170.18 cm Stephanie Tico Other [facility] Other 03-08-2022 15:00-0400 Body temperature 97.6 [degF] Stephanie Tico Other [facility] Other 03-08-2022 15:00-0400 Diastolic blood pressure 72 mm[Hg] Stephanie Tico Other [facility] Other 03-08-2022 15:00-0400 Respiratory rate 20 /min Stephanie Tico Other [facility] Other 03-08-2022 15:00-0400 SaO2% (BldA) [Mass fraction] 91 % Stephanie Tico Other [facility] Other 03-08-2022 15:00-0400 Systolic blood pressure 131 mm[Hg] Stephanie Tico Other [facility] Other 02-20-2022 09:20-0400 Body height 170.18 cm Stephanie Tico Other [facility] Other 02-20-2022 09:20-0400 Body temperature 96.5 [degF] Stephanie Tico Other [facility] Other 02-20-2022 09:20-0400 Diastolic blood pressure 69 mm[Hg] Stephanie Tico Other [facility] Other 02-20-2022 09:20-0400 Respiratory rate 20 /min Stephanie Tico Other [facility] Other 02-20-2022 09:20-0400 SaO2% (BldA) [Mass fraction] 91 % Stephanie Tico Other [facility] Other 02-20-2022 09:20-0400 Systolic blood pressure 129 mm[Hg] Stephanie Tico Other [facility] Other 02-06-2022 10:24-0400 Blood Pressure Location Elbert Kanshu [facility] 02-06-2022 10:24-0400 Diastolic blood pressure 76 mm[Hg] Elbert Kanshu [facility] 02-06-2022 10:24-0400 Heart rate 70 /min Elbert Kanshu [facility] 02-06-2022 10:24-0400 Respiratory rate 16 /min Elbert Nuve [facility] 02-06-2022 10:24-0400 Systolic blood pressure 134 mm[Hg] Elbert ARAUZ [facility] Encounters Encounter Date Encounter Type Care Provider Facility Start: 04-23-2025 ambulatory Corinne Kellogg MD Facility:[facility] Start: 04-17-2025 ambulatory Omero jacobs TAX ADVISOR-[employer]NER Facility:[facility] Start: 04-06-2025 End: 04-06-2025 ambulatory Mckayla Blas COW TESTER-C Work Phone: [facility] Work Phone: Start: 04-06-2025 End: 04-06-2025 Patient encounter procedure Mckayla J Wan COW TESTER-C -[facility] Work Phone: Start: 04-01-2025 Patient encounter procedure Mckayla Wan COW TESTER-C Work Phone: [facility] Start: 03-26-2025 Non-patient / Non-visit Flynn aguilar DPM -[facility] Work Phone: Start: 03-25-2025 Non-patient / Non-visit Price Ramsey DO -[facility] Work Phone: Start: 03-24-2025 ambulatory Omero Nas Negrita use TAX ADVISOR-OFFICE WORK[employer]CE PL[employer]NER Facility:[facility] Start: 03-23-2025 End: 03-23-2025 ambulatory Omero Nas Bob TAX ADVISOR-OFFICE WORKFORCE PL[employer]NER Facility:[facility] Start: 03-11-2025 End: 03-11-2025 ambulatory Flynn Urias DPM Facility: [facility] Start: 03-09-2025 End: 03-09-2025 Refill Mckayla Wan COW TESTER Work Phone: [facility] Comment on above: Tobacco user; Encounter for smoking cessation counseling Start: 01-29-2025 End: 01-29-2025 Diana Souza MD Work Phone: [facility] Start: 01-29-2025 End: 01-29-2025 Diana flowsneal Souza MD Work Phone: [facility] Start: 01-29-2025 End: 01-29-2025 Clinisync Result Encounter Generic External Data Provider [facility] External Department Unsolicited Start: 01-29-2025 End: 01-29-2025 ambulatory RAIN SOUZA Not Available Start: 01-29-2025 End: 01-29-2025 Office outpatient visit 25 minutes Rain Souza MD Work Phone: [facility] Comment on above: Encounter for dietar y consultation (Primary Dx); Type 2 diabetes mellitus with hyperglycemia, with long-term current use of insulin (HCC); Vitamin D deficiency; Primary hypertension ; Insulin long-term use (HCC); Hyperlipemia, mixed ; Microalbuminuria; Class 3 severe obesity due to excess calories with serious comorbidity and body mass index (BMI) of 50.0 to 59.9 in adult ([facility]) Start: 01-26-2025 End: 01-26-2025 ambulatory MCKAYLA BLAS Not Available Start: 01-26-2025 End: 01-26-2025 Patient encounter procedure Mckayla Blas NP Work Phone: [facility] Comment on above: Encounter for subseq [...] Morbid (severe) obesity due to excess calories ([facility]) Start: 01-06-2025 End: 01-06-2025 ambulatory [facility] Start: 12-18-2024 End: 12-19-2024 Refill Mckayla Blas NP Work Phone: [facility] Comment on above: Hyperlipidemia, unsp ecified ; Tobacco user; Encounter for smoking cessation counseling Start: 12-09-2024 End: 12-09-2024 Bamboo flowsheet Mckayla Blas NP Work Phone: [facility] Start: 12-09-2024 End: 12-09-2024 Bamboo flowsheet Mckayla Blas COW TESTER Work Phone: [facility] Start: 12-09-2024 End: 12-09-2024 ambulatory MCKAYLA AICHHOLZ Not Available Start: 12-09-2024 End: 12-09-2024 Office outpatient visit 25 minutes Mckayla Blas COW TESTER Work Phone: [facility] Comment on above: Cellulitis of [...] Encounter Generic External Data Provider [facility] External Department Unsolicited Start: 12-04-2024 End: 12-07-2024 Clinisync Result Encounter Generic External Data Provider [facility] External Department Unsolicited Start: 10-27-2024 End: 10-27-2024 ambulatory MCKAYLA AICHHOLZ Not Available Start: 10-27-2024 End: 10-27-2024 Office outpatient visit 25 minutes Mckayla Blas COW TESTER Work Phone: [facility] Comment on above: Primary hypertension [...] 10-21-2024 Refill Mckayla Blas NP Work Phone: [facility] Comment on above: Chronic obstructive pulmonary disease, unspecified Start: 10-08-2024 End: 10-08-2024 Clinisync Result Encounter Mckayla Blas NP Work Phone: [facility] External Department Unsolicited Start: 10-08-2024 End: 10-08-2024 Clinisync Result Encounter Mckayla Blas NP Work Phone: [facility] External Department Unsolicited Start: 10-08-2024 End: 10-08-2024 Office outpatient visit 25 minutes Rain Souza MD Work Phone: [facility] Comment on above: Type 2 diabetes [...] 25 minutes Mckayla Blas NP Work Phone: 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 ([facility]); Gastroesophageal reflux disease, unspecified whether esophagitis present; Bilateral lower extremity edema; Type 2 diabetes mellitus with complication, with long-term current use of insulin ([facility]); Tobacco user; Mixed hyperlipidemia ([facility]); Gout, unspecified cause, unspecified chronicity, unspecified site; Vitamin deficiency; Gastro-esophageal reflux disease without esophagitis; Edema, unspecified; Edema; Hyperlipidemia, unspecified ([facility]); Encounter for smoking cessation counseling; Venous ulcer of right leg ([facility]); Antibiotic-induced yeast infection Start: 08-27-2024 End: 08-27-2024 ambulatory MCKAYLA BLAS Not Available Start: 08-27-2024 End: 08-27-2024 Clinisync Result Encounter Generic External Data Provider [facility] External Department Unsolicited Start: 08-27-2024 End: 08-27-2024 Clinisync Result Encounter Generic External Data Provider [facility] External Department Unsolicited Start: 08-08-2024 End: 08-08-2024 ambulatory [facility] Start: 07-17-2024 End: 07-17-2024 Refill Mckayla Blas NP Work Phone: [facility] Start: 07-14-2024 End: 07-14-2024 Office outpatient visit 25 minutes Mckayla Blas NP Work Phone: [facility] Comment on above: Primary hypertension ([facility]) (Primary Dx); Diabetic polyneuropathy associated with type 2 diabetes mellitus ([facility]); Pulmonary emphysema, unspecified emphysema type ([facility]); Critical limb ischemia of right lower extremity ([facility]); PAD (peripheral artery disease) ([facility]); Gastroesophageal reflux disease, unspecified whether esophagitis present; Bilateral lower extremity edema; Venous ulcer of right leg ([facility]); Type 2 diabetes mellitus with complication, with long-term current use of insulin ([facility]); Tobacco user; Encounter for smoking cessation counseling; Kidney stone; Adrenal mass 1 cm to 4 cm in diameter ([facility]); Radiculopathy, lumbar region; Non-seasonal allergic rhinitis, unspecified trigger; Type 2 diabetes mellitus with unspecified complications ([facility]) Start: 07-14-2024 End: 07-14-2024 ambulatory MCKAYLA AICHHOLZ Not Available Start: 07-05-2024 End: 07-07-2024 Refill Mckayla Aichholz COW TESTER Work Phone: [facility] Comment on above: Bilateral lower extr emity edema Start: 06-11-2024 ambulatory Elbert ARAUZ Facili ty:[facility] [place] Start: 06-11-2024 End: 06-11-2024 Patient encounter procedure Elbert R REGLA [facility] [place] Start: 05-27-2024 End: 05-27-2024 Diana Souza MD Work Phone: [facility] Start: 05-27-2024 End: 05-27-2024 Diana flowsheet Rain Souza MD Work Phone: [facility] Start: 05-27-2024 End: 05-27-2024 ambulatory RAIN SOUZA Not Available Start: 05-27-2024 End: 05-27-2024 Office outpatient visit 25 minutes Rain Souza MD Work Phone: [facility] Comment on above: Type 2 diabetes asiya itus with hyperglycemia, with long-term current use of insulin ([facility]) (Primary Dx); Encounter for dietary consultation; Vitamin D deficiency; Primary hypertension ([facility]); Insulin long-term use ([facility]); Hyperlipemia, mixed (CMS/[facility]); Microalbuminuria; Class 3 severe obesity due to excess calories with serious comorbidity and body mass index (BMI) of 50.0 to 59.9 in adult ([facility]) Start: 05-12-2024 End: 05-12-2024 Clinisync Result Encounter Generic External Data Provider [facility] External Department Unsolicited Start: 05-12-2024 End: 05-12-2024 Clinisync Result Encounter Generic External Data Provider [facility] External Department Unsolicited Start: 05-08-2024 ambulatory SARAH Webb SILVIAAPRIL Wilkerson ty:SHEA Villalobos Start: 04-14-2024 End: 04-14-2024 Bamboo flowsheet Mckayla Harshadholz COW TESTER Work Phone: [facility] Start: 04-14-2024 End: 04-14-2024 Bamboo flowsheet Mckayla Aichholz COW TESTER Work Phone: [facility] Start: 04-14-2024 End: 04-14-2024 Office outpatient visit 25 minutes Mckayla Aichholz COW TESTER Work Phone: [facility] Comment on above: Primary hypertension (CMS/HCC) [...] Start: 04-05-2024 End: 04-06-2024 Refill Mckayla Aichholz COW TESTER Work Phone: [facility] Comment on above: Hyperlipidemia, unsp ecified (CMS/HCC); Bilateral lower extremity edema Vitamin D deficiency , unspecified Start: 01-17-2024 Patient encounter procedure Rain Souza MD Work Phone: [facility] Start: 08-17-2023 Refill Mckayla Aichholz COW TESTER Work Phone: [facility] Comment on above: Vaginal yeast infect ion (Primary Dx) Start: 08-14-2023 Refill Mckayla Aichholz COW TESTER Work Phone: [facility] Comment on above: Type 2 diabetes asiya itus with unspecified complications (CMS/[facility]); Edema, unspecified; Edema Start: 12-05-2022 ambulatory MATEUSZ ANGULOMATEOY . Facility:[facility] Start: 12-05-2022 End: 12-06-2022 Evaluation and management of inpatient UMBERTO CANTU . Facility:[facility] Start: 11-23-2022 End: 11-23-2022 ambulatory OFFICE [employer] [facility] Start: 11-22-2022 End: 11-23-2022 ambulatory OFFICE [employer] PL[employer]NER MCKAYLA JUAN[facility]AU[facility] Facility[facility] Start: 11-17-2022 End: 11-18-2022 ambulatory SUBHASH GASPAR . Facility:[facility] Start: 11-15-2022 End: 11-15-2022 Patient encounter procedure SARAH VEGA [facility] Start: 10-05-2022 End: 10-05-2022 ambulatory MARIANO DIAB . Facility:[facility] Start: 09-21-2022 End: 09-21-2022 ambulatory OFFICE [employer] MCKAYLA BERMUDEZRAVIJuanis Facility:[facility]1 Start: 09-14-2022 ambulatory RAFAEL Ribera y:H1 Start: 08-24-2022 End: [address] CHAPARRO MORTENSEN . Facility:[facility]1 Start: 08-21-2022 End: 08-22-2022 ambulatory HATTIE BRODERICK Facility:[facility] Start: 07-27-2022 End: 07-28-2022 ambulatory CECILIA TORRES . Facility:[facility] Start: 07-18-2022 End: 07-19-2022 ambulatory CECILIA TORRES . Facility:[facility] Start: 07-18-2022 End: 07-19-2022 ambulatory HATTIE BRODERICK Facility:[facility] Start: 07-06-2022 End: 07-06-2022 ambulatory OFFICE [employer] MCKAYLA BERMUDEZJODIE Facility:H1 Start: 05-11-2022 End: 05-12-2022 ambulatory GIL VALENZUELA . Facility:[facility] Start: 04-25-2022 End: 04-25-[address] CHAPARRO MORTENSEN . Facility:[facility] Start: 04-20-2022 End: 04-21-2022 ambulatory GIL VALENZUELA . Facility:[facility] Start: 03-08-2022 End: 03-08-2022 ambulatory Stephanie Tico Other [facility] Other Start: 03-08-2022 Office outpatient vi sit 15 minutes Stephanie Tico [facility] Start: 03-03-2022 End: 03-04-2022 ambulatory SAYDA BLAS Facility:[facility] Start: 02-20-2022 End: 02-20-2022 ambulatory Stephanie Tico Other [facility] Other Start: 02-20-2022 Office outpatient ne w 45 minutes Stephanie Tico [facility] Start: 02-06-2022 End: 02-06-2022 Patient encounter procedure Elbert ARAUZ [facility] Start: 01-19-2022 End: 01-20-2022 ambulatory GIL VALENZUELA . Facility:[facility] Start: 12-24-2021 End: 12-24-2021 ambulatory OLE RAMIREZ Facility: Start: 08-26-2020 End: 09-10-2020 Patient encounter procedure MARY TAVERAS Facility:[facility] Start: 10-30-2019 End: 10-30-2019 Emergency department patient visit [facility] Start: 10-30-2019 End: 10-30-2019 Emergency department patient visit [facility] Start: 11-02-2016 Preoperative state Stephanie Tico Other [facility] Other Procedures Date Procedure Procedure Detail Performing [...] Rain Souza MD Work Phone: Start: 10-08-2024 [facility] UA (CLEAN/CATCH) MICROSCOPIC IF INDICATE Mckayla Blas NP Work Phone: Start: 08-27-2024 ALL CBC WITH AUTO DIFF Generic External Data Provider Start: 05-27-2024 Gluc bld gluc mntr d ev cleared fda spec home use Rain Souza MD Work Phone: Start: 05-12-2024 [facility] CREATININE Generic External Data Provider Start: 12-14-2023 Mammography Rain urena MD Work Phone: Start: 11-22-2022 Mammography Mckayla clifford COW TESTER Work Phone: Start: 10-08-2015 Microscopic observat ion [Identifier] in Cervix by Cyto stain Mckayla Blas NP Work Phone: H/O: hysterectomy Elbert LARA Laparoscopic cholecystectomy Elbert ARAUZ Operative procedure on foot Elbert REGLA Plan of Treatment Date Care Activity Detail Author Start: 02-01-2026 End: 02-01-2026 Patient encounter procedure [facility] Start: 01-26-2026 Medicare Annual Wellness (AWV) Medicare Annual Wellness (AWV) [facility] Start: 10-08-2025 Urine screening for protein Diabetes: Urine Protein Screening [facility] Start: 08-03-2025 Screening for malignant neoplasm of colon [facility] Start: 07-14-2025 Glaucoma screening Diabetes: R etinopathy Screening [facility] Start: 05-28-2025 End: 05-28-2025 Patient encounter procedure [facility] Start: 05-13-2025 Glaucoma screening Diabetes: R etinopathy Screening [facility] Start: 05-01-2025 Hemoglobin A1c measurement Diabetes: Hemoglobin A1C [facility] Start: 04-29-2025 End: 04-29-2025 Patient encounter procedure [facility] Start: 03-09-2025 Influenza vaccination [facility] Start: 01-28-2025 End: 01-28-2025 Patient encounter procedure 01/28/2025 10:50 AM EDT Office Visit [facility] [address] [place] [phone] Rain Souza MD [address] [place] [address] [facility] Start: 01-26-2025 End: 01-26-2025 Patient encounter procedure 01/26/2025 6:00 PM EDT Office Visit [facility] [address] [place] [phone] Mckayla Blas NP [address] [place] [phone] [facility] Start: 01-16-2025 Medicare Annual Wellness (AWV) Medicare Annual Wellness (AWV) [facility] Start: 01-07-2025 Hemoglobin A1c measurement Diabetes: Hemoglobin A1C [facility] Start: 12-15-2024 End: 12-27-2025 MG Breast - bilateral Screening Bilateral screening mammogram Imaging Routine Encounter for screening mammogram for malignant neoplasm of breast Expected: 12/15/2024 (Approximate), Expires: 12/27/2025 [facility] Work Phone: Comment on above: Expected: 12/15/2024 (Approximate), Expires: 12/27/2025 Start: 12-13-2024 Screening for malignant neoplasm of breast Mammogram [facility] Start: 11-11-2024 Urine screening for protein Diabetes: Urine Protein Screening [facility] Start: 10-27-2024 End: 10-27-2024 Patient encounter procedure 10/27/2024 2:00 PM EDT Office Visit [facility] [address] [place] [address] Mckayla Blas NP [address] [place] [address] [facility] Start: 10-08-2024 End: 10-08-2024 Patient encounter procedure 10/08/2024 11:20 AM EDT Office Visit [facility] [address] [place] [phone] Rain Souza MD [address] [place] [address] [facility] Start: 08-27-2024 End: 08-27-2024 Patient encounter procedure 08/27/2024 5:30 PM EST Office Visit [facility] [address] [place] [address] Mckayla Blas NP [address] [place] [address] [facility] Start: 08-27-2024 End: 08-27-2025 25-hydroxyvitamin D3 [Mass/volume] in Serum or Plasma Vitamin D 25 hydroxy Lab Routine Vitamin deficiency Expected: 08/27/2024 (Approximate), Expires: 08/27/2025 [facility] Comment on above: Expected: 08/27/2024 (Approximate), Expires: 08/27/2025 Start: 08-27-2024 Hemoglobin A1c measurement Diabetes: Hemoglobin A1C [facility] Start: 08-27-2024 End: 08-27-2025 Hepatic function 2000 panel - Serum or Plasma Hepatic function panel Lab Routine Hyperlipidemia, unspecified (CMS/HCC) Expected: 08/27/2024 (Approximate), Expires: 08/27/2025 [facility] Comment on above: Expected: 08/27/2024 (Approximate), Expires: 08/27/2025 Start: 08-27-2024 End: 08-27-2025 Lipid 1996 panel - Serum or Plasma Lipid panel Lab Routine Mixed hyperlipidemia (CMS/HCC) Expected: 08/27/2024 (Approximate), Expires: 08/27/2025 [facility] Work Phone: Comment on above: Expected: 08/27/2024 (Approximate), Expires: 08/27/2025 Start: 08-27-2024 End: 08-27-2025 Microalbumin/Creatini ne panel in random Urine Microalbumin / creatinine, urine ratio Lab Routine Primary hypertension ([facility]/HCC) Type 2 diabetes mellitus with complication, with long-term current use of insulin (CMS/HCC) Expected: 08/27/2024 (Approximate), Expires: 08/27/2025 [facility] Comment on above: Expected: 08/27/2024 (Approximate), Expires: 08/27/2025 Start: 08-27-2024 End: 08-27-2025 Urate [Mass/volume] in Serum or Plasma Uric acid Lab Routine Gout, unspecified cause, unspecified chronicity, unspecified site Expected: 08/27/2024 (Approximate), Expires: 08/27/2025 [facility] Comment on above: Expected: 08/27/2024 (Approximate), Expires: 08/27/2025 Start: 08-27-2024 End: 08-27-2025 Urinalysis complete panel - Urine Urinalysis with reflex microscopic (clean catch) Lab Routine Primary hypertension (CMS/HCC) Type 2 diabetes mellitus with complication, with long-term current use of insulin (CMS/HCC) Tobacco user Gout, unspecified cause, unspecified chronicity, unspecified site Expected: 08/27/2024 (Approximate), Expires: 08/27/2025 [facility] Comment on above: Expected: 08/27/2024 (Approximate), Expires: 08/27/2025 Start: 08-26-2024 End: 08-26-2024 Patient encounter procedure 08/26/2024 10:30 AM EST Office Visit [facility] [address] [place] [phone] Rain Souza MD [address] [place] [address] [facility] Start: 07-14-2024 End: 07-14-2024 Patient encounter procedure 07/14/2024 6:30 PM EST [facility] [address] [place] [address] Mckayla Blas NP [address] [place] [address] [facility] Start: 07-14-2024 End: 07-14-2024 Patient encounter procedure 07/14/2024 10:10 AM EST Office Visit [facility] [address] [place] [phone] Rain Souza MD [address] [place] [address] [facility] Start: 06-06-2024 Influenza vaccination Influenza Vacc ine (#1) [facility] Comment on above: Postponed from 03/09 (Patient Refused) Start: 05-27-2024 End: 05-27-2024 Patient encounter procedure 05/27/2024 9:50 AM EST Office Visit [facility] [address] [place] [phone] Rain Souza MD [address] [place] [phone] [facility] Start: 05-17-2024 Hemoglobin A1c measurement Diabetes: Hemoglobin A1C [facility] Start: 05-15-2024 End: 05-15-2024 Chart abstracting 05/15/2024 Abstract [facility] [address] [place] [address] Rain Souza MD [address] [place] [address] [facility] Start: 05-15-2024 End: 05-15-2024 Patient encounter procedure 05/15/2024 11:20 AM EST Office Visit [facility] [address] [place] [phone] Rain Souza MD [address] [place] [address] [facility] Start: 04-17-2024 End: 04-17-2024 Patient encounter procedure 04/17/2024 3:40 PM EDT Office Visit [facility] [address] [place] [address] Mckayla Blas, SILVANO [address] [place] [phone] [facility] Start: 04-14-2024 End: 04-14-2024 Patient encounter procedure 04/14/2024 11:00 AM EDT Office Visit [facility] [address] [place] [address] Mckayla Blas, SILVANO [address] [place] [phone] Arrived [facility] Comment on above: Arrived Start: 03-09-2024 Influenza vaccination Influenza Vacc ine (#1) [facility] Start: 02-19-2024 Hemoglobin A1c measurement Diabetes: Hemoglobin A1C [facility] Start: 11-24-2023 Urine screening for protein Diabetes: Urine Protein Screening [facility] Start: 11-23-2023 Screening for malignant neoplasm of breast Mammogram [facility] Start: 10-15-2023 End: 10-15-2023 Patient encounter procedure 10/15/2023 4:30 PM EDT Office Visit [facility] [address] [place] [address] Mckayla Blas, COW TESTER [address] [place] [phone] [facility] Start: 08-09-2023 Hemoglobin A1c measurement Diabetes: Hemoglobin A1C [facility] Start: 05-27-2021 Glaucoma screening Diabetes: R etinopathy Screening [facility] Start: 03-09-2020 Influenza vaccination Flu vacc ine (Season Ended) [place], [place] Start: 10-07-2018 Screening for malignant neoplasm of cervix [facility] Start: 2010 Lipid panel Lipid screen [place], [place] Start: 2000 Screening for malignant neoplasm of cervix HPV/Cotest [facility] Start: 1991 Screening for malignant neoplasm of cervix Cervical cancer screen [place], [place] Start: 1989 DTaP/Tdap/Td vaccine (1 - Tdap) DTaP/Tdap/Td vaccine ( - Tdap) [place], [place] Start: 1985 HIV screening HIV screen [place], [place] Start: 1970 Medicare Annual Wellness (AWV) Medicare Annual Wellness (AWV) [facility] Start: 1970 Screening for malignant neoplasm of colon [facility] BLOOD CULTURE 1 BLOOD CULTURE 1 Lab Routine 12/04/2024 4:44 PM EDT [facility] BLOOD CULTURE 2 BLOOD CULTURE 2 Lab Routine 12/04/2024 5:28 PM EDT [facility] Immunizations Immunization Date Immunization Notes Care Provider [facility] 05-18-2023 influenza, injectabl e, quadrivalent, contains preservative Mckayla Blas NP Work Phone: [facility] 05-18-2023 influenza virus vacc ine, unspecified formulation Rain Souza MD Work Phone: [facility] 07-19-2021 SARS-CoV-2 (COVID-19 ) mRNA BNT-162b2 vax SARAH VEGA [facility] 10-28-2020 SARS-CoV-2 (COVID-19 ) mRNA BNT-162b2 bjornx SARAH VEGA [facility] 10-08-2020 SARS-CoV-2 (COVID-19 ) mRNA BNT-162b2 audrey VEGA [facility] 04-16-2017 influenza virus vacc ine, H5N1, A/ (national stockpile) Mckayla Blas COW TESTER Work Phone: [facility] 04-16-2017 influenza virus vacc ine, unspecified formulation Rain Souza MD Work Phone: [facility] 04-16-2017 influenza, unspecifi ed formulation Elbert ARAUZ [facility] 04-16-2017 pneumococcal polysaccharide vaccine, 23 valent Rain Souza MD Work Phone: [facility] 05-10-2016 influenza virus vacc ine, H5N1, A/ (national stockpile) Mckayla Blas COW TESTER Work Phone: [facility] 05-10-2016 influenza virus vacc ine, unspecified formulation Rain Souza MD Work Phone: [facility] 05-10-2016 influenza, unspecifi ed formulation Elbert ARAUZ [facility] 05-02-2013 influenza virus vacc ine, whole virus Rain Souza MD Work Phone: [facility] 05-02-2013 influenza, injectabl e, quadrivalent, contains preservative Mckayla Blas COW TESTER Work Phone: [facility] 05-02-2013 influenza, whole Elbert ARAMBULA [facility] 01-29-1998 measles, mumps and rubella virus vaccine Rain Souza MD Work Phone: [facility] Payers Date Payer Category Payer Unknown [id number] 2023 Medicare (Managed Care) [id number] 2023 Private Health Insurance [id number] 2023 Medicare [id number] 2018 Medicaid MEDICAID [facility] [facility] [id number] 2018-Present [phone] [address] [place] [address] Medicaid [id number] 2013 Medicare [id number]. [id number]. [id number] 1970 Unknown [id number] 2.16.840.1.660809.3.579.2. 647 1970 Unknown [id number] 2.16.840.1.715621.3.579.2. 593 1970 Unknown [id number] 2.16.840.1.056936.3.579.2. 593 1970 Unknown [id number] 2.16.840.1.036752.3.579.2. 593 1970 Unknown [id number] 2.16.840.1.481520.3.579.2. 593 1970 Unknown [id number] 2.16.840.1.595458.3.579.2. 593 1970 Unknown [id number] 2.16.840.1.184131.3.579.2. 593 1970 Unknown [id number] 2.16.840.1.888885.3.579.2. 593 1970 Unknown [id number] 2.16.840.1.154002.3.579.2. 593 1970 Unknown [id number] 2.16.840.1.390748.3.579.2. 593 1970 Unknown [id number] 2.16.840.1.137053.3.579.2. 593 1970 Unknown [id number] 2.16.840.1.101538.3.579.2. 593 1970 Unknown [id number] 2.16.840.1.454461.3.579.2. 593 1970 Unknown [id number] 2.16.840.1.954024.3.579.2. 593 1970 Unknown [id number] 2.16.840.1.214905.3.579.2. 593 1970 Unknown [id number] 2.16.840.1.861023.3.579.2. 593 1970 Unknown [id number] 2.16.840.1.878027.3.579.2. 593 1970 Unknown [id number] 2.16.840.1.191690.3.579.2. 593 1970 Unknown [id number] 2.16.840.1.861251.3.579.2. 593 1970 Unknown [id number] 2.16.840.1.931709.3.579.2. 593 1970 Unknown [id number] 2.16.840.1.068602.3.579.2. 593 1970 Unknown [id number] 2.16.840.1.472563.3.579.2. 593 1970 Unknown [id number] 2.16.840.1.961697.3.579.2. 593 1970 Unknown [id number] 2.16.840.1.611911.3.579.2. 727 1970 Unknown [id number] 2.16.840.1.448606.3.579.2. 727 1970 Unknown [id number] 2.16.840.1.294601.3.579.2. 1259 1970 Unknown [id number] 2.16.840.1.356428.3.579.2. 9 1970 Unknown [id number] 2.16.840.1.608769.3.579.2. 9 1970 Unknown [id number] 2.16.840.1.413282.3.579.2. 9 1970 Unknown [id number] 2.16.840.1.718186.3.579.2. 1258 1970 Unknown [id number] 2.16.840.1.382126.3.579.2. 1258 1970 Unknown [id number] 2.16.840.1.555659.3.579.2. 1258 1970 Unknown [id number] 2.16.840.1.157001.3.579.2. 1258 1970 Unknown [id number] 2.16.840.1.417236.3.579.2. 1258 1970 Unknown [id number] 2.16.840.1.742440.3.579.2. 1970 Unknown [id number] 2.16.840.1.172833.3.579.2. 1970 Unknown [id number] 2.16.840.1.034440.3.579.2. 1970 Unknown [id number] 2.16.840.1.381586.3.579.2. 1970 Unknown [id number] 2.16.840.1.239057.3.579.2. 1970 Unknown [id number] 2.16.840.1.047858.3.579.2. 196 1959 Medicaid [id number] 1959 Private Health Insurance [id number] 1959 Unknown [id number] .16.840.1.911949.19 Medicare Medicare [id number] Private Health Insurance [facility] [id number] Unknown Regular Auto/Liability [id number] Social History Date Type Detail Facility Start: 02-17-2014 End: 12-13-2017 Tobacco smoking status NHIS Current every day smoker [place], [place] Start: 02-17-1994 History of tobacco use Cigarette Smo ker [place] Start: 02-17-2014 End: 08-26-2024 Cigarettes smoked current (pack per day) - Reported [place] Start: 02-17-2014 Alcohol intake Current drinke r of alcohol (finding) [place] Start: 02-17-2014 Alcohol Comment Rare [facility] [place], [place] Start: 1970 Sex Assigned At Not on file M [place], [place] Exposure to SARS-CoV -2 (event) Unable to assess [place] Start: 02-06-2022 Tobacco smoking status Smoker (findi ng) [facility] Start: 07-10-2023 End: 08-26-2024 Sex Assigned At Female [facility] Start: 11-15-2022 End: 06-11-2024 Tobacco smoking status Heavy tobacco smoker (finding) [facility] Start: 07-10-2023 End: 01-29-2025 Tobacco use and exposure Smokeless tobacco non-user [facility] Start: 07-10-2023 End: 01-29-2025 Alcohol intake Lifetime non-drinker (finding) [facility] Within the last year , have you been afraid of your partner or ex-partner? No [facility] Do you belong to any clubs or organizations such as mandaeism groups, unions, fraternal [...] [SILS] Rarely [facility] Sex Female (finding) [facility] Start: 1970 Sex Assigned At Female F [facility] NEGATED: Highlighted row N [facility] Medical Equipment Procedure Code Equipment Code Equipment Origin al Text Equipment Identifier Dates [id number] Start: 01-18-2024 USE TO TEST BLOO D SUGAR 4 TIMES DAILY [id number] Start: 07-07-2024 Functional Status Date Assessment Result [...] PM EDT Mychart, Generic Not at all [facility] 01-26-2025 Feeling bad about yourself-or that you are a failure or have let yourself or your family down Not at all 01/26/2025 4:13 PM EDT Mychart, Generic Not at all [facility] 01-26-2025 Trouble concentratin g on things, such as reading the newspaper or watching television Not at all 01/26/2025 4:13 PM EDT Mychart, Generic Not at all [facility] 01-26-2025 Moving or speaking s o slowly that other people could have noticed. Or the opposite - being so fidgety or restless that you have been moving around a lot more than usual Not at all 01/26/2025 4:13 PM EDT Mychart, Generic Not at all [facility] 01-26-2025 Thoughts that you wo uld be better off , or of hurting yourself in some way Not at all 01/26/2025 4:13 PM EDT Mychart, Generic Not at all [facility] 06-11-2024 Functional Status N/A [facility] 11-15-2022 Functional Status N/A [facility] 02-06-2022 Functional Status N/A [facility] Clinical Notes 01-19-2022 to 02-04-2025 [...] Follow-up as planned in 6 months. Thanks! [facility] 01-29-2025 History of Present illness Narrative [...] 25 mg, Oral, 2 times daily HYDROcodone-acetaminophen ([place]) 5-325 MG tablet 1 tablet, 3 times [...] 09/17/2023 Angiomyolipoma Anxiety and depression 07/10/2023 Asthma ([facility]) 07/10/2023 Body mass index (BMI) 50.0-59.9, adult ([facility]) Cellulitis of left lower extremity Cervical cancer ([facility]) 09/17/2023 Chronic pain of both knees 09/17/2023 COPD (chronic obstructive pulmonary disease) ([facility]) 07/10/2023 COPD exacerbation ([facility]) 09/17/2023 Decreased functional mobility 09/17/2023 Diabetic neuropathy ([facility]) 07/10/2023 Dietary counseling and surveillance Edema 07/10/2023 Elevated sed rate Elevated WBC count Essential (primary) hypertension GERD (gastroesophageal reflux disease) 09/17/2023 Hyperlipidemia 09/17/2023 Hypertension 07/10/2023 Insomnia 09/17/2023 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 ([facility]) Lower extremity edema 09/17/2023 Mixed hyperlipidemia Morbid (severe) obesity due to excess calories ([facility]) Obstructive sleep apnea 07/10/2023 PAD (peripheral artery disease) 09/17/2023 Pancreatitis ([facility]) 09/17/2023 Pneumonia 09/17/2023 Proteinuria, unspecified Pulmonary hypertension ([facility]) 09/17/2023 Radiculopathy, lumbar region 09/17/2023 [...] (BMI) of 50.0 to 59.9 in adult ([facility]) Diet and exercise reviewed with the patient Follow up in about 4 months (around 06/01/2025). 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 Associated Problem(s): COPD [...] 25 mg, Oral, 2 times daily HYDROcodone-acetaminophen ([place]) 5-325 MG tablet 1 tablet, 3 times [...] 09/17/2023 Angiomyolipoma Anxiety and depression 07/10/2023 Asthma ([facility]) 07/10/2023 Body mass index (BMI) 50.0-59.9, adult ([facility]) Cellulitis of left lower extremity Cervical cancer ([facility]) 09/17/2023 Chronic pain of both knees 09/17/2023 COPD (chronic obstructive pulmonary disease) ([facility]) 07/10/2023 COPD exacerbation ([facility]) 09/17/2023 Decreased functional mobility 09/17/2023 Diabetic neuropathy ([facility]) 07/10/2023 Dietary counseling and surveillance Edema 07/10/2023 Elevated sed rate Elevated WBC count Essential (primary) hypertension GERD (gastroesophageal reflux disease) 09/17/2023 Hyperlipidemia 09/17/2023 Hypertension 07/10/2023 Insomnia 09/17/2023 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 ([facility]) Lower extremity edema 09/17/2023 Mixed hyperlipidemia Morbid (severe) obesity due to excess calories ([facility]) Obstructive sleep apnea 07/10/2023 PAD (peripheral artery disease) 09/17/2023 Pancreatitis ([facility]) 09/17/2023 Pneumonia 09/17/2023 Proteinuria, unspecified Pulmonary hypertension ([facility]) 09/17/2023 Radiculopathy, lumbar region 09/17/2023 Tobacco user 09/17/2023 Type 2 diabetes mellitus with complication, with long-term current use of insulin ([facility]) 07/10/2023 Unilateral primary osteoarthritis, right [...] List Items Addressed This Visit Diabetic neuropathy ([facility]) Continue with cintia hudson mgmt is prescribing OARRS reviewed Fu in 3 months Goal: tighter glucose control, this has been improving, latest A1c is 7.4%!!! 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 Hypertension Please check blood pressure daily and record DASH diet Limit caffeine Take medication as directed Contact office if chest pain, pressure, dizziness, shortness of breath, swelling legs Recommend slow position changes Current meds: hydralazine, lisinopril, Relevant Medications hydrALAZINE (Apresoline) 25 MG tablet lisinopril 20 MG tablet Type 2 diabetes mellitus with complication, with long-term current use of insulin ([facility]) Check blood sugars daily, notify [...] follow with Libby On asa, tila, statin, farximarni laraungenevievero Most recent A1c is 7.2% on 10/08/2024 [...] MG tablet Pulmonary hypertension (HCC) Has seen [facility] Cardiology Hyperlipidemia On statin therapy [...] Morbid (severe) obesity due to excess calories ([facility]) Discussed with patient their BMI (actual, [...] Associated Problem(s): Pulmonary hypertension (HCC) Has seen [facility] Cardiology Associated Problem(s): Hypertension Please [...] a yearly basis documented in this encounter [facility] 01-26-2025 Instructions Mckayla Blas NP - 01/26/2025 6:00 PM EDT Please call the [facility] to schedule your mammogram: [phone]- ext [phone] documented in this encounter [facility] 01-06-2025 Note Cardiovascular Medic ine [facility] SUBJECTIVE Chief Complaint Patient presents with Congestive Heart Failure Hypertension Hyperlipidemia Mitzi Macias is a 54 y.o. female here for follow-up. PMHx: HFpEF, HTN, HLD, DM, longstanding heavy smoker, COPD, DANIEL, morbid obesity HPI 01/06/2025 Since last seen she was admitted to [facility] for AMS on 12/05/2024. She was [...] Bilateral lower extremity edema BMI 50.0-59.9, adult ([facility]) Candidiasis of breast Cardiomegaly Cervical cancer ([facility]) Chronic pain of both knees Closed fracture of upper end of humerus Acute respiratory distress syndrome ([facility]) Decreased functional mobility Diabetic neuropathy ([facility]) Easy bruising GERD (gastroesophageal reflux disease) [...] complication, with long-term current use of insulin ([facility]) Unilateral primary osteoarthritis, right hip Vaginal yeast infection Venous insufficiency Bad odor of urine Critical limb ischemia of right lower extremity ([facility]) Hyperpigmentation of skin 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 2 diabetes mellitus ([facility]) Myelolipoma of adrenal gland Venous ulcer of right leg ([facility]) Chronic diastolic heart failure ([facility]) Antibiotic-induced yeast infection Cellulitis of left lower extremity Cigarette nicotine dependence without complication Fever Idiopathic chronic venous hypertension of both lower extremities with ulcer ([facility]) 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 Vitamin D deficiency, unspecified Vitamin deficiency Past Medical History: Diagnosis Date COPD (chronic obstructive pulmonary disease) ([facility]) Diabetes mellitus ([facility]) Hyperlipidemia Hypertension Sleep apnea Family History [...] , Rfl: ergocalciferol (Vitamin D-2) 1.25 MG (64125 Units) capsule, Take 1.25 mg by mouth., [...] and at bedtime., Disp: , Rfl: HYDROcodone-acetaminophen ([place]) 5-325 mg tablet, TAKE 1 TABLET BY MOUTH THREE TIMES A DAY NEEDED FOR PAIN MUST LAST 30 DAYS, Disp: , Rfl: insulin aspart (NovoLOG) 100 unit/mL (3 mL) injection pen, Novolog Flexpen U-100 Insulin aspart 100 unit/mL (3 mL) subcutaneous, Disp: , Rfl: insulin glargine (Lantus Solostar U-100 Insulin) 100 unit/mL (3 mL) injection pen (more content not included)... [facility] 01-06-2025 Note Patient is here toda [...] weight gain. Cardiovascular: Positive for leg swelling. [facility] 12-09-2024 History of Present illness Narrative [...] bad light. She was ultimately taken to [facility] ER, no tox screen was done [...] 25 mg, Oral, 2 times daily HYDROcodone-acetaminophen ([place]) 5-325 MG tablet 1 tablet, 3 times [...] CT Albuminuria 09/17/2023 Angiomyolipoma Anxiety and depression ([facility]) 07/10/2023 Asthma 07/10/2023 Body mass index (BMI) 50.0-59.9, adult ([facility]) Cellulitis of left lower extremity Cervical cancer ([facility]) 09/17/2023 Chronic pain of both knees 09/17/2023 COPD (chronic obstructive pulmonary disease) ([facility]) 07/10/2023 COPD exacerbation ([facility]) 09/17/2023 Decreased functional mobility 09/17/2023 Diabetic neuropathy ([facility]) 07/10/2023 Dietary counseling and surveillance Edema 07/10/2023 Elevated sed rate Elevated WBC count Essential (primary) hypertension ([facility]) GERD (gastroesophageal reflux disease) 09/17/2023 Hyperlipidemia ([facility]) 09/17/2023 Hypertension ([facility]) 07/10/2023 Insomnia 09/17/2023 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 ([facility]) Lower extremity edema 09/17/2023 Mixed hyperlipidemia ([facility]) Morbid (severe) obesity due to excess calories ([facility]) Obstructive sleep apnea 07/10/2023 PAD (peripheral artery disease) ([facility]) 09/17/2023 Pancreatitis 09/17/2023 Pneumonia 09/17/2023 Proteinuria, unspecified Pulmonary hypertension ([facility]) 09/17/2023 Radiculopathy, lumbar region 09/17/2023 Tobacco user 09/17/2023 Type 2 diabetes mellitus with complication, with long-term current use of insulin ([facility]) 07/10/2023 Unilateral primary osteoarthritis, [...] Problem List Items Addressed This Visit Hypertension ([facility]) Please check blood pressure daily and record DASH diet Limit caffeine Take medication as directed Contact office if chest pain, pressure, dizziness, shortness of breath, swelling legs Recommend slow position changes Current meds: hydralazine, lisinopril, Type 2 diabetes mellitus with complication, with long-term current use of insulin ([facility]) Check blood sugars daily, notify [...] secondary to her steroids Anxiety and depression ([facility]) Current meds: elavil, duloxtine, COPD exacerbation (CMS/HCC) Recent ER visit for unresponsiveness , found to have fever and elevated WBC Sent home with steroids and atb Breathing is better and she feels back to her normal baseline Does have home O2, she is not wearing this today Pulmonary hypertension ([facility]) Has seen [facility] Cardiology Morbid (severe) obesity due to excess calories ([facility]) Discussed with patient their BMI [...] Finish atb's Associated Problem(s): Anxiety and depression ([facility]) Current meds: elavil, duloxtine, Associated Problem(s): Type 2 diabetes mellitus with complication, with long-term current use of insulin ([facility]) Check blood sugars daily, notify [...] Associated Problem(s): Pulmonary hypertension (CMS/HCC) Has seen [facility] Cardiology Associated Problem(s): Hypertension (CMS/HCC) [...] wearing this today documented in this encounter [facility] 12-09-2024 Instructions Mckayla Blas NP - 12/09/2024 10:00 AM EDT Keep appt with wound care today Keep fu with me, sooner if needed documented in this encounter [facility] 10-27-2024 History of Present illness [...] 25 mg, Oral, 2 times daily HYDROcodone-acetaminophen ([place]) 5-325 MG tablet 1 tablet, 3 times [...] CT Albuminuria 09/17/2023 Angiomyolipoma Anxiety and depression ([facility]) 07/10/2023 Asthma 07/10/2023 Body mass index (BMI) 50.0-59.9, adult ([facility]) Cellulitis of left lower extremity Cervical cancer ([facility]) 09/17/2023 Chronic pain of both knees 09/17/2023 COPD (chronic obstructive pulmonary disease) ([facility]) 07/10/2023 COPD exacerbation ([facility]) 09/17/2023 Decreased functional mobility 09/17/2023 Diabetic neuropathy ([facility]) 07/10/2023 Dietary counseling and surveillance Edema 07/10/2023 Elevated sed rate Elevated WBC count Essential (primary) hypertension ([facility]) GERD (gastroesophageal reflux disease) 09/17/2023 Hyperlipidemia ([facility]) 09/17/2023 Hypertension ([facility]) 07/10/2023 Insomnia 09/17/2023 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 ([facility]) Lower extremity edema 09/17/2023 Mixed hyperlipidemia ([facility]) Morbid (severe) obesity due to excess calories ([facility]) Obstructive sleep apnea 07/10/2023 PAD (peripheral artery disease) ([facility]) 09/17/2023 Pancreatitis 09/17/2023 Pneumonia 09/17/2023 Proteinuria, unspecified Pulmonary hypertension ([facility]) 09/17/2023 Radiculopathy, lumbar region 09/17/2023 Tobacco user 09/17/2023 Type 2 diabetes mellitus with complication, with long-term current use of insulin ([facility]) 07/10/2023 Unilateral primary osteoarthritis, right [...] Diabetic neuropathy (CMS/HCC) - Primary Continue with lyricacintia mgmt is prescribing OARRS [...] complication, with long-term current use of insulin ([facility]) Check blood sugars daily, notify [...] 81 MG chewable tablet Anxiety and depression ([facility]) Current meds: elavil, duloxtine, Relevant Medications DULoxetine (Cymbalta) [address] capsule Bilateral lower extremity edema Limit sodium , elevate legs, furosemide Relevant Medications furosemide (Lasix) 20 MG tablet potassium chloride ER (Micro-K) 10 MEQ ER capsule furosemide (Lasix) 40 MG tablet Insomnia Relevant Medications amitriptyline (Elavil) 25 MG tablet PAD (peripheral artery disease) ([facility]) Asa, statin Quit smoking BP and [...] MG tablet Venous ulcer of right leg ([facility]) Continue with wound care and management of wound, currently they are using dakins Wound is improving Morbid (severe) obesity due to excess calories ([facility]) Discussed with patient their BMI [...] mounjaro for DM Chronic diastolic heart failure ([facility]) Current meds; asa, farxiga, lasix, hydralazine, lisinopril, Follows with [facility] Reviewed 08/02 notes Cigarette nicotine dependence without complication Is currently using chantix, and is doing well, less desire, smoking less Vitamin D deficiency, unspecified Relevant Medications ergocalciferol (Vitamin D2) 1.25 MG (22785 UT) capsule Gastro-esophageal reflux disease without esophagitis Relevant Medications omeprazole (PriLOSEC) [address] capsule Other Visit Diagnoses Type 2 diabetes mellitus with unspecified complications Relevant Medications dapagliflozin (Farxiga) 10 MG Associated Problem(s): Cigarette nicotine dependence without complication Is currently using chantix, and is doing well, less desire, smoking less Associated Problem(s): Anxiety and depression ([facility]) Current meds: elavil, duloxtine, Associated Problem(s): Type 2 diabetes mellitus with complication, with long-term current use of insulin ([facility]) Check blood sugars daily, notify [...] A1c is 7.4%!!! documented in this encounter [facility] 10-27-2024 Instructions Mckayla Blas NP - 10/27/2024 2:00 PM EDT No dose changes in meds You will be due for mammogram I will send order to [facility], they should call you to schedule If no call, please call [phone] documented in this encounter [facility] 10-08-2024 History of Present illness [...] or chew. ergocalciferol (Vitamin D2) 1.25 MG (80423 UT) capsule TAKE 1 CAPSULE BY MOUTH [...] 25 mg, Oral, 2 times daily HYDROcodone-acetaminophen ([place]) 5-325 MG tablet 1 tablet, 3 times [...] CT Albuminuria 09/17/2023 Angiomyolipoma Anxiety and depression ([facility]) 07/10/2023 Asthma ([facility]) 07/10/2023 Body mass index (BMI) 50.0-59.9, adult ([facility]) Cellulitis of left lower extremity Cervical cancer ([facility]) 09/17/2023 Chronic pain of both knees 09/17/2023 COPD (chronic obstructive pulmonary disease) ([facility]) 07/10/2023 COPD exacerbation ([facility]) 09/17/2023 Decreased functional mobility 09/17/2023 Diabetic neuropathy ([facility]) 07/10/2023 Dietary counseling and surveillance Edema 07/10/2023 Elevated sed rate Elevated WBC count Essential (primary) hypertension ([facility] [place] GERD (gastroesophageal reflux disease) 09/17/2023 Hyperlipidemia ([facility] [place]) 09/17/2023 Hypertension ([facility] [place]) 07/10/2023 Insomnia 09/17/2023 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 ([facility] [place]) Lower extremity edema 09/17/2023 Mixed hyperlipidemia ([facility] [place]) Morbid (severe) obesity due to excess calories ([facility] [place]) Obstructive sleep apnea 07/10/2023 PAD (peripheral artery disease) ([facility] [place]) 09/17/2023 Pancreatitis 09/17/2023 Pneumonia 09/17/2023 Proteinuria, unspecified Pulmonary hypertension ([facility] [place]) 09/17/2023 Radiculopathy, lumbar region 09/17/2023 Tobacco user 09/17/2023 Type 2 diabetes mellitus with complication, with long-term current use of insulin ([facility] [place]) 07/10/2023 Unilateral primary osteoarthritis, [...] hyperglycemia, with long-term current use of insulin ([facility]) - POCT glucose manually resulted [...] months (around 02/07/2025). documented in this encounter [facility] 08-27-2024 History of Present illness [...] or chew. ergocalciferol (Vitamin D2) 1.25 MG (16687 UT) capsule TAKE 1 CAPSULE BY MOUTH [...] 25 mg, Oral, 2 times daily HYDROcodone-acetaminophen ([place]) 5-325 MG tablet 1 tablet, 3 times [...] CT Albuminuria 09/17/2023 Angiomyolipoma Anxiety and depression ([facility]) 07/10/2023 Asthma ([facility]) 07/10/2023 Body mass index (BMI) 50.0-59.9, adult ([facility]) Cellulitis of left lower extremity Cervical cancer ([facility]) 09/17/2023 Chronic pain of both knees 09/17/2023 COPD (chronic obstructive pulmonary disease) ([facility] [place]) 07/10/2023 COPD exacerbation ([facility] [place]) 09/17/2023 Decreased functional mobility 09/17/2023 Diabetic neuropathy ([facility]) 07/10/2023 Dietary counseling and surveillance Edema 07/10/2023 Elevated sed rate Elevated WBC count Essential (primary) hypertension ([facility]) GERD (gastroesophageal reflux disease) 09/17/2023 Hyperlipidemia ([facility]) 09/17/2023 Hypertension ([facility]) 07/10/2023 Insomnia 09/17/2023 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 ([facility]) Lower extremity edema 09/17/2023 Mixed hyperlipidemia ([facility]) Morbid (severe) obesity due to excess calories ([facility]) Obstructive sleep apnea 07/10/2023 PAD (peripheral artery disease) ([facility]) 09/17/2023 Pancreatitis 09/17/2023 Pneumonia 09/17/2023 Proteinuria, unspecified Pulmonary hypertension ([facility]) 09/17/2023 Radiculopathy, lumbar region 09/17/2023 Tobacco user 09/17/2023 Type 2 diabetes mellitus with complication, with long-term current use of insulin ([facility]) 07/10/2023 Unilateral primary osteoarthritis, right [...] List Items Addressed This Visit Diabetic neuropathy ([facility]) Continue with cintia hudson mgmt is prescribing OARRS reviewed Fu in 3 months Goal: tighter glucose control Hypertension ([facility]) Please check blood pressure daily [...] complication, with long-term current use of insulin ([facility]) Check blood sugars daily, notify [...] / creatinine, urine ratio Anxiety and depression ([facility]) - Primary Current meds: elavil, [...] Uric acid Venous ulcer of right leg ([facility]) Continue with wound for treatment Had recent [...] Morbid (severe) obesity due to excess calories ([facility]) Discussed with patient their BMI [...] Asthma (CMS/HCC) Current meds: albuterol, 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 [facility] 07-14-2024 History of Present illness Narrative [...] or chew. ergocalciferol (Vitamin D2) 1.25 MG (41471 UT) capsule TAKE 1 CAPSULE BY MOUTH ONE TIME PER WEEK furosemide (LASIX) 40 mg, Oral, Daily furosemide (LASIX) 20 mg, Oral, Daily PRN, Take in the afternoon as needed hydrALAZINE (APRESOLINE) 25 mg, Oral, 2 times daily HYDROcodone-acetaminophen ([place]) 5-325 MG tablet 1 tablet, 3 times [...] CT Albuminuria 09/17/2023 Angiomyolipoma Anxiety and depression ([facility]) 07/10/2023 Asthma ([facility]) 07/10/2023 Body mass index (BMI) 50.0-59.9, adult ([facility]) Cellulitis of left lower extremity Cervical cancer ([facility]) 09/17/2023 Chronic pain of both knees 09/17/2023 COPD (chronic obstructive pulmonary disease) ([facility] [place]) 07/10/2023 COPD exacerbation ([facility] [place]) 09/17/2023 Decreased functional mobility 09/17/2023 Diabetic neuropathy ([facility] [place]) 07/10/2023 Dietary counseling and surveillance Edema 07/10/2023 Elevated sed rate Elevated WBC count Essential (primary) hypertension ([facility]) GERD (gastroesophageal reflux disease) 09/17/2023 Hyperlipidemia ([facility] [place]) 09/17/2023 Hypertension ([facility]) 07/10/2023 Insomnia 09/17/2023 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 ([facility] [place]) Lower extremity edema 09/17/2023 Mixed hyperlipidemia ([facility]) Morbid (severe) obesity due to excess calories ([facility] [place]) Obstructive sleep apnea 07/10/2023 PAD (peripheral artery disease) ([facility]) 09/17/2023 Pancreatitis 09/17/2023 Pneumonia 09/17/2023 Proteinuria, unspecified Pulmonary hypertension ([facility]) 09/17/2023 Radiculopathy, lumbar region 09/17/2023 Tobacco user 09/17/2023 Type 2 diabetes mellitus with complication, with long-term current use of insulin ([facility]) 07/10/2023 Unilateral primary osteoarthritis, right [...] List Items Addressed This Visit Diabetic neuropathy ([facility]) Continue with tristan EAST reviewed Fu in 3 months COPD (chronic obstructive pulmonary disease) ([facility]) Stable at this time, no changes in meds Encouraged smoking cessation Cont with dr Yañez Hypertension ([facility]) - Primary Please check blood pressure daily and record DASH diet Limit caffeine Take medication as directed Contact office if chest pain, pressure, dizziness, shortness of breath, swelling legs Recommend slow position changes Current meds: hydralazine, lisinopril, Type 2 diabetes mellitus with complication, with long-term current use of insulin ([facility]) Check blood sugars daily, notify [...] take over prescribing PAD (peripheral artery disease) ([facility]) Asa, statin Quit smoking BP and [...] 1 cm to 4 cm in diameter ([facility]) Continue with Urology Kidney stone Continue with Urology Non-seasonal allergic rhinitis Relevant Medications cetirizine (ZyrTEC) 10 MG tablet Critical limb ischemia of right lower extremity ([facility]) Saw vascular, does have narrowing in arteries in legs, and thus the wounds not healing At this point they strongly urge to quit smoking or risk limb amputation Cont asa and statin Also good blood pressure and sugar control Venous ulcer of right leg ([facility]) Encounter for smoking cessation counseling Relevant Medications nicotine (Nicoderm, Step 1) 21 MG/24HR patch Other Visit Diagnoses Type 2 diabetes mellitus with unspecified complications ([facility]) Quitting smokinppd, chantix not helped, [...] complication, with long-term current use of insulin ([facility]) Check blood sugars daily, notify [...] Problem(s): Diabetic neuropathy (CMS/HCC) Continue with tristan AEST reviewed Fu in 3 months documented in this encounter [facility] 06-11-2024 Hospital Discharge instructions Patient [...] require a prescription. You can also purchase hoko-lpc-artpqxn medicines. Medicines may have nicotine in them [...] and encouragement. Call telephone quitlines, such as 4-480-QVQJ-NOW, reach out to support groups, or work [...] provider. Document Revised: 06/16/2022 Document Reviewed: 06/16/2022 [employer] Patient Education 2023 [employer]. 06/11/2024 10:39:22 Dietary Guidelines to Help Prevent [...] include: ?8 oz (237 mL) of milk, pupdyrv-exkjrheehcco-gmrzu milk, and calcium-fortifiedfruit juice. Calcium-fortified means that [...] ?Spinach (cooked), rhubarb, beets, sweet potatoes, and Vietnamese chard. ?Peanuts. ?Potato chips, persian fries, and baked potatoes with skin on. ?Nuts and nut products. ?Chocolate. If you regularly take a diuretic medicine, make sure to eat at least 1 or 2 servings of fruits or vegetables that are high in potassium each day. These include: ?Avocado. ?Banana. ?[place], prune, carrot, or tomato juice. ?Baked potato. [...] magnesium, fish oil, or vitamin B6. Take uzod-uaq-neugaho and prescription medicines only as told by [...] Casseroles. Pizza. Lasagna. Frozen meals. Potato chips. Bulgarian fries. The items listed above may not [...] provider. Document Revised: 10/05/2022 Document Reviewed: 10/05/2022 [employer] Patient Education 2023 [employer]. Follow Up Care 05/06/2024 08:24:56 With:REGLA PHIPPS, Elbert Joya, URL Address: [facility] [address], [place] [address]- When: Unknown [facility] 05-27-2024 History of Present illness [...] or chew. ergocalciferol (Vitamin D2) 1.25 MG (82551 UT) capsule TAKE 1 CAPSULE BY MOUTH ONE TIME PER WEEK furosemide (LASIX) 20 mg, Oral, Daily PRN, Take in the afternoon as needed furosemide (LASIX) 40 mg, Oral, Daily Glucose Blood (ACCU-CHEK JAQUI PLUS ) 4 times daily hydrALAZINE (APRESOLINE) 25 mg, Oral, 2 times daily HYDROcodone-acetaminophen ([place]) 5-325 MG tablet 1 tablet, 3 times [...] CT Albuminuria 09/17/2023 Angiomyolipoma Anxiety and depression ([facility]) 07/10/2023 Asthma ([facility]) 07/10/2023 Body mass index (BMI) 50.0-59.9, adult [facility] Cellulitis of left lower extremity Cervical cancer ([facility] [place]) 09/17/2023 Chronic pain of both knees 09/17/2023 COPD (chronic obstructive pulmonary disease) ([facility] [place]) 07/10/2023 COPD exacerbation ([facility] [place]) 09/17/2023 Decreased functional mobility 09/17/2023 Diabetic neuropathy ([facility] [place]) 07/10/2023 Dietary counseling and surveillance Edema 07/10/2023 Elevated sed rate Elevated WBC count GERD (gastroesophageal reflux disease) 09/17/2023 Hyperlipidemia ([facility] [place]) 09/17/2023 Hypertension ([facility] [place]) 07/10/2023 Insomnia 09/17/2023 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 ([facility] [place]) Lower extremity edema 09/17/2023 Morbid (severe) obesity due to excess calories ([facility] [place]) Obstructive sleep apnea 07/10/2023 PAD (peripheral artery disease) ([facility] [place]) 09/17/2023 Pancreatitis 09/17/2023 Pneumonia 09/17/2023 Proteinuria, unspecified Pulmonary hypertension ([facility] [place]) 09/17/2023 Radiculopathy, lumbar region 09/17/2023 Tobacco user 09/17/2023 Type 2 diabetes mellitus with complication, with long-term current use of insulin ([facility] [place]) 07/10/2023 Unilateral primary osteoarthritis, [...] hyperglycemia, with long-term current use of insulin ([facility]) - POCT glucose manually resulted - POCT glycosylated hemoglobin (Hb A1C) docked device We will continue with Lantus 58, lispro 02/16/12 according to meal size, Mounjaro 15 mg once weekly, Farxiga 5 mg once a day Encounter for dietary consultation Vitamin D deficiency Primary hypertension ([facility]) To follow with her PCP Insulin long-term use ([facility]) Hyperlipemia, mixed ([facility]) Continue with Zocor 10 mg once daily Microalbuminuria Class 3 severe obesity due to excess calories with serious comorbidity and body mass index (BMI) of 50.0 to 59.9 in adult ([facility]) Diet and exercise reviewed with the patient Follow up in about 3 months (around 08/27/2024). documented in this encounter [facility] 04-14-2024 History of Present illness [...] being taken. She does not see a line helper.Eye exam is not current. Hypertension This [...] or chew. ergocalciferol (Vitamin D2) 1.25 MG (95335 UT) capsule TAKE 1 CAPSULE BY MOUTH ONE TIME PER WEEK furosemide (LASIX) 20 mg, Oral, Daily PRN, Take in the afternoon as needed furosemide (LASIX) 40 mg, Oral, Daily Glucose Blood (ACCU-CHEK JAQUI PLUS ) 4 times daily HumaLOG KWIKPEN 100 UNIT/ML injection Subcutaneous hydrALAZINE (APRESOLINE) 25 mg, Oral, 2 times daily HYDROcodone-acetaminophen ([place]) 5-325 MG tablet 1 tablet, 3 times [...] CT Albuminuria 09/17/2023 Angiomyolipoma Anxiety and depression ([facility]) 07/10/2023 Asthma ([facility] [place]) 07/10/2023 Cellulitis of left lower extremity Cervical cancer ([facility] [place]) 09/17/2023 Chronic pain of both knees 09/17/2023 COPD (chronic obstructive pulmonary disease) ([facility] [place]) 07/10/2023 COPD exacerbation ([facility] [place]) 09/17/2023 Decreased functional mobility 09/17/2023 Diabetic neuropathy ([facility] [place]) 07/10/2023 Edema 07/10/2023 Elevated sed rate Elevated WBC count GERD (gastroesophageal reflux disease) 09/17/2023 Hyperlipidemia ([facility] [place]) 09/17/2023 Hypertension ([facility] [place]) 07/10/2023 Insomnia 09/17/2023 Lower extremity edema 09/17/2023 Obstructive sleep apnea 07/10/2023 PAD (peripheral artery disease) ([facility] [place]) 09/17/2023 Pancreatitis 09/17/2023 Pneumonia 09/17/2023 Pulmonary hypertension ([facility] [place]) 09/17/2023 Radiculopathy, lumbar region 09/17/2023 Tobacco user 09/17/2023 Type 2 diabetes mellitus with complication, with long-term current use of insulin ([facility] [place]) 07/10/2023 Unilateral primary osteoarthritis, [...] List Items Addressed This Visit Diabetic neuropathy ([facility]) Continue with tristan EAST reviewed Fu in 3 months Relevant Medications pregabalin (Lyrica) 300 MG capsule COPD (chronic obstructive pulmonary disease) ([facility]) - Primary Stable at this time, no changes in meds Encouraged smoking cessation Cont with dr Yañez Hypertension ([facility]) Stable on current meds Refill meds Relevant Medications hydrALAZINE (Apresoline) 25 MG tablet lisinopril 20 MG tablet Type 2 diabetes mellitus with complication, with long-term current use of insulin ([facility]) Check blood sugars daily, follow [...] 500 MCG tablet documented in this encounter [facility] 11-15-2022 Hospital Discharge instructions Patient [...] include: ?8 oz (237 mL) of milk, ovkkhbd-tdebhkbclpfj-xxlcc milk, and calcium-fortifiedfruit juice. Calcium-fortified means that [...] ?Spinach (cooked), rhubarb, beets, sweet potatoes, and Vietnamese chard. ?Peanuts. ?Potato chips, persian fries, and baked potatoes with skin on. ?Nuts and nut products. ?Chocolate. If you regularly take a diuretic medicine, make sure to eat at least 1 or 2 servings of fruits or vegetables that are high in potassium each day. These include: ?Avocado. ?Banana. ?[place], prune, carrot, or tomato juice. ?Baked potato. [...] magnesium, fish oil, or vitamin B6. Take jcow-kbq-npmkyqy and prescription medicines only as told by [...] Casseroles. Pizza. Lasagna. Frozen meals. Potato chips. Bulgarian fries. The items listed above may not [...] provider. Document Revised: 03/06/2022 Document Reviewed: 03/06/2022 [employer] Patient Education 2022 [employer]. Follow Up Care 02/06/2022 11:44:09 With:SILVIA HOWELL, SARAH Webb, URL Address: [address] [place] [address] When: Unknown [facility] 08-24-2022 Note CONSULTATION CONSULTATION DATE: [...] We maintain her on pain medication with O[place] 5/325 t.i.d., diclofenac 75 mg b.i.d. Her [...] her at this point. A refill for O[place] 5/325 t.i.d. and diclofenac 75 mg b.i.d. will be sent to the pharmacy. Vitamin compliance and nutrition were discussed and enforced. I did highly encourage her to use exercise bands to increase the strength in her lower extremities. We will see her in three months' time, unless otherwise indicated, and patient agrees. [facility] 05-11-2022 Note CONSULTATION CONSULTATION DATE: 05/11/2022 This [...] 150. Medications include Lyrica 300 mg b.i.d., O[place] 5/325 t.i.d., diclofenac 75 mg b.i.d. and [...] her medications today. We will maintain Lyrica, O[place] and diclofenac at the set dose and frequency. We will follow-up in the clinic in three months' time. The patient is in agreement to this. Vitamin importance and nutrition were discussed. [facility] 04-20-2022 Note CONSULTATION CONSULTATION DATE: 04/20/2022 HISTORY [...] medications include Tylenol, Lyrica 300 mg b.i.d., O[place] 5/325 t.i.d., amitriptyline, diclofenac and duloxetine. Patient's [...] up in the clinic. [facility] 03-08-2022 Evaluation note Encounter Date Diagnosis Assessment [...] to the DANIEL. Thrombocytopenia is unclear etiology. [facility] Other 08-15-2022 Evaluation note* Encounter Date Diagnosis [...] follow with Dr. Souza and Dr. Arauz. [facility] Other 08-01-2022 Hospital Discharge instructions Patient Education [...] fried and sweet foods. General instructions Take bhpv-gmw-gwunimc and prescription medicines only as told by [...] 04/21/2010 Document Revised: 10/16/2019 Document Reviewed: 07/11/2018 [employer] Patient Education 2020 [employer]. Follow Up Care 01/05/2022 12:02:03 With:REGLA PHIPPS, Elbert Joya, URL Address: [facility] [address], [place] [address]- [phone] When:Within 6 Month(s) Comments:w/ repeat CT A/P [...] pattern and the patient tolerated it well. [facility] Signed and Approved by: GIL VALENZUELA . 01/27/2022 14:15:00[facility]07-14-2022 NoteCONSULTATION CONSULTATION DATE: 01/19/2022 This is [...] today. Medications include Lyrica 300 mg b.i.d., O[place] 5/325 t.i.d., diclofenac 75 mg b.i.d. and [...] in three months' time unless otherwise indicated. [facility] Signed and Approved by: GIL VALENZUELA . 01/27/2022 [facility]ments Appointment Date:08/14/2022 09:15:00 AM Scheduled Provider:Elbert ARAUZ MD Location:[facility] Appointment Type:URO Office Visit [facility] evaluation + Plan note Future Appointments Appointment Date:04/22/2024 10:00:00 AM Scheduled Provider:SARAH VEGA PA-C Location:[facility] Appointment Type:URO Office Visit [facility] evaluation note* Diagnosis Type 2 diabetes mellitus with unspecified complications ([facility]) Edema, unspecified Edema documented in this encounter [facility]* Diagnosis Vaginal yeast infection- Primary Candidiasis of vulva and vagina documented in this encounter [facility]* Diagnosis Primary hypertension ([facility])- Primary Unspecified essential hypertension Insomnia Insomnia, unspecified Type 2 diabetes mellitus with complication, with long-term current use of insulin ([facility]) Non-seasonal allergic rhinitis, unspecified trigger Type 2 diabetes mellitus with unspecified complications ([facility]) Anxiety and depression ([facility]) Gastro-esophageal reflux disease without esophagitis Edema, unspecified Edema Diabetic polyneuropathy associated with type 2 diabetes mellitus ([facility]) Chronic obstructive pulmonary disease, unspecified (CMS/HCC) Pulmonary emphysema, unspecified emphysema type (CMS/HCC) Bilateral lower extremity edema Tobacco user Tobacco use disorder Hyperpigmentation of skin Other dyschromia documented in this encounter [facility]* Diagnosis Obstructive sleep apnea- Primary Obstructive sleep apnea (adult) (pediatric) Pulmonary emphysema, unspecified emphysema type (CMS/HCC) Primary hypertension ([facility]) Unspecified essential hypertension Type 2 diabetes mellitus with complication, with long-term current use of insulin ([facility]) Anxiety and depression ([facility]) Bilateral lower extremity edema Pulmonary emphysema, unspecified emphysema type (CMS/HCC)- Primary Primary hypertension ([facility]) Unspecified essential hypertension Class 3 severe obesity with serious comorbidity and body mass index (BMI) of 50.0 to 59.9 in adult, unspecified obesity type ([facility]) Obstructive sleep apnea Obstructive sleep apnea (adult) (pediatric) Pulmonary hypertension ([facility]) Other chronic pulmonary heart diseases Tobacco user Tobacco use disorder Cardiomegaly Primary hypertension ([facility])- Primary Unspecified essential hypertension Gastroesophageal reflux disease, unspecified whether esophagitis present Type 2 diabetes mellitus with complication, with long-term current use of insulin ([facility]) Mixed hyperlipidemia ([facility]) Mixed hyperlipidemia Tobacco user Tobacco use disorder Encounter for screening mammogram for malignant neoplasm of breast Chronic obstructive pulmonary disease, unspecified ([facility] [facility] Other specified chronic obstructive pulmonary disease ([facility]) Anxiety and depression ([facility]) Edema, unspecified Edema Hyperlipidemia, unspecified ([facility]) Diabetic polyneuropathy associated with type 2 diabetes mellitus ([facility]) Gout, unspecified cause, unspecified chronicity, unspecified site Non-seasonal allergic rhinitis, unspecified trigger Bilateral lower extremity edema COPD exacerbation ([facility]) Obstructive chronic bronchitis with exacerbation Pulmonary emphysema, unspecified emphysema type ([facility]/HCC) Venous insufficiency Unspecified venous (peripheral) insufficiency Candidiasis of breast COPD exacerbation ([facility])- Primary Obstructive chronic bronchitis with exacerbation Pulmonary hypertension ([facility]) Other chronic pulmonary heart diseases Class 3 severe obesity with serious comorbidity and body mass index (BMI) of 50.0 to 59.9 in adult, unspecified obesity type ([facility]) Encounter for subsequent annual wellness visit (AWV) in Medicare patient- Primary Type 2 diabetes mellitus with unspecified complications ([facility]) Pulmonary emphysema, unspecified emphysema type ([facility]) Moderate persistent asthma without complication ([facility]) Primary hypertension ([facility]) Unspecified essential hypertension Type 2 diabetes mellitus with complication, with long-term current use of insulin ([facility]) Class 3 severe obesity with serious comorbidity and body mass index (BMI) of 50.0 to 59.9 in adult, unspecified obesity type ([facility]) Tobacco user Tobacco use disorder Other headache syndrome Malignant neoplasm of cervix uteri, unspecified ([facility]) Other specified disorders of adrenal gland ([facility]) Major depressive disorder, single episode, mild (HCC) ([facility]) Major depressive disorder, single episode, mild 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 exposed ([facility]) Chronic respiratory failure, unspecified whether with hypoxia or hypercapnia ([facility]) Disorder of adrenal gland, unspecified ([facility]) Non-pressure chronic ulcer of other part of right lower leg limited to breakdown of skin ([facility]) Non-recurrent acute suppurative otitis media of left ear without spontaneous rupture of tympanic membrane Primary hypertension ([facility])- Primary Unspecified essential hypertension Insomnia Insomnia, unspecified Type 2 diabetes mellitus with complication, with long-term current use of insulin ([facility]) Non-seasonal allergic rhinitis, unspecified trigger Type 2 diabetes mellitus with unspecified complications ([facility]) Anxiety and depression ([facility]) Gastro-esophageal reflux disease without esophagitis Edema, unspecified Edema Diabetic polyneuropathy associated with type 2 diabetes mellitus ([facility]) Chronic obstructive pulmonary disease, unspecified ([facility]) Pulmonary emphysema, unspecified emphysema type ([facility]) Bilateral lower extremity edema Tobacco user Tobacco use disorder Hyperpigmentation of skin Other dyschromia Type 2 diabetes mellitus with hyperglycemia, with long-term current use of insulin ([facility])- Primary Encounter for dietary consultation Vitamin D deficiency Primary hypertension ([facility]) Unspecified essential hypertension Insulin long-term use ([facility]) Encounter for long-term (current) use of insulin Hyperlipemia, mixed ([facility]) Mixed hyperlipidemia Microalbuminuria Proteinuria Class 3 severe obesity due to excess calories with serious comorbidity and body mass index (BMI) of 50.0 to 59.9 in adult ([facility]) documented in this encounter [facility] HealthcareEvaluation [facility]* Diagnosis Hyperlipidemia, unspecified ([facility]) Bilateral lower extremity edema documented in this encounter [facility]* Diagnosis Vitamin D deficiency, unspecified documented in this encounter [facility] HealthcareEvaluation note* Diagnosis Obstructive sleep apnea- Primary Obstructive sleep apnea (adult) (pediatric) Pulmonary emphysema, unspecified emphysema type ([facility]) Primary hypertension ([facility]) Unspecified essential hypertension Type 2 diabetes mellitus with complication, with long-term current use of insulin ([facility]) Anxiety and depression ([facility]) Bilateral lower extremity edema Pulmonary emphysema, unspecified emphysema type ([facility])- Primary Primary hypertension ([facility]) Unspecified essential hypertension Class 3 severe obesity with serious comorbidity and body mass index (BMI) of 50.0 to 59.9 in adult, unspecified obesity type ([facility]) Obstructive sleep apnea Obstructive sleep apnea (adult) (pediatric) Pulmonary hypertension ([facility]) Other chronic pulmonary heart diseases Tobacco user Tobacco use disorder Cardiomegaly Primary hypertension ([facility])- Primary Unspecified essential hypertension Gastroesophageal reflux disease, unspecified whether esophagitis present Type 2 diabetes mellitus with complication, with long-term current use of insulin ([facility]) Mixed hyperlipidemia ([facility]) Mixed hyperlipidemia Tobacco user Tobacco use disorder Encounter for screening mammogram for malignant neoplasm of breast Chronic obstructive pulmonary disease, unspecified ([facility]) Other specified chronic obstructive pulmonary disease ([facility]) Anxiety and depression ([facility]) Edema, unspecified Edema Hyperlipidemia, unspecified ([facility]) Diabetic polyneuropathy associated with type 2 diabetes mellitus ([facility]) Gout, unspecified cause, unspecified chronicity, unspecified site Non-seasonal allergic rhinitis, unspecified trigger Bilateral lower extremity edema COPD exacerbation ([facility]) Obstructive chronic bronchitis with exacerbation Pulmonary emphysema, unspecified emphysema type ([facility]) Venous insufficiency Unspecified venous (peripheral) insufficiency Candidiasis of breast COPD exacerbation ([facility])- Primary Obstructive chronic bronchitis with exacerbation Pulmonary hypertension ([facility]) Other chronic pulmonary heart diseases Class 3 severe obesity with serious comorbidity and body mass index (BMI) of 50.0 to 59.9 in adult, unspecified obesity type ([facility]) Encounter for subsequent annual wellness visit (AWV) in Medicare patient- Primary Type 2 diabetes mellitus with unspecified complications ([facility]) Pulmonary emphysema, unspecified emphysema type ([facility]) Moderate persistent asthma without complication ([facility]) Primary hypertension ([facility]) Unspecified essential hypertension Type 2 diabetes mellitus with complication, with long-term current use of insulin ([facility]) Class 3 severe obesity with serious comorbidity and body mass index (BMI) of 50.0 to 59.9 in adult, unspecified obesity type ([facility]/H[facility]) Tobacco user Tobacco use disorder Other headache syndrome Malignant neoplasm of cervix uteri, unspecified ([facility]) Other specified disorders of adrenal gland ([facility]) Major depressive disorder, single episode, mild (HCC) ([facility]) Major depressive disorder, single episode, mild 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 exposed ([facility]) Chronic respiratory failure, unspecified whether with hypoxia or hypercapnia ([facility]) Disorder of adrenal gland, unspecified ([facility]) Non-pressure chronic ulcer of other part of right lower leg limited to breakdown of skin ([facility]) Non-recurrent acute suppurative otitis media of left ear without spontaneous rupture of tympanic membrane Primary hypertension ([facility])- Primary Unspecified essential hypertension Insomnia Insomnia, unspecified Type 2 diabetes mellitus with complication, with long-term current use of insulin ([facility]) Non-seasonal allergic rhinitis, unspecified trigger Type 2 diabetes mellitus with unspecified complications ([facility]) Anxiety and depression ([facility]) Gastro-esophageal reflux disease without esophagitis Edema, unspecified Edema Diabetic polyneuropathy associated with type 2 diabetes mellitus ([facility]) Chronic obstructive pulmonary disease, unspecified ([facility]) Pulmonary emphysema, unspecified emphysema type ([facility]/HCC) Bilateral lower extremity edema Tobacco user Tobacco use disorder Hyperpigmentation of skin Other dyschromia Bilateral lower extremity edema documented in this encounter [facility] HealthcareEvaluation note* Diagnosis Obstructive sleep apnea- Primary Obstructive sleep apnea (adult) (pediatric) Pulmonary emphysema, unspecified emphysema type (CMS/HCC) Primary hypertension (CMS/HCC) Unspecified essential hypertension Type 2 diabetes mellitus with complication, with long-term current use of insulin ([facility]) Anxiety and depression ([facility]) Bilateral lower extremity edema Pulmonary [...] to 59.9 in adult, unspecified obesity type ([facility]) Encounter for subsequent annual wellness visit (AWV) in Medicare patient- Primary Type 2 diabetes mellitus with unspecified complications ([facility]/HCC) Pulmonary emphysema, unspecified emphysema type (CMS/HCC) Moderate persistent asthma without complication (CMS/HCC) Primary hypertension (CMS/HCC) Unspecified essential hypertension Type 2 diabetes mellitus with complication, with long-term current use of insulin ([facility]) Class 3 severe obesity with [...] spontaneous rupture of tympanic membrane Primary hypertension ([facility])- Primary Unspecified essential hypertension Insomnia Insomnia, unspecified Type 2 diabetes mellitus with complication, with long-term current use of insulin ([facility]) Non-seasonal allergic rhinitis, unspecified trigger Type 2 diabetes mellitus with unspecified complications ([facility]) Anxiety and depression ([facility]) Gastro-esophageal reflux disease without esophagitis Edema, unspecified Edema Diabetic polyneuropathy associated with type 2 diabetes mellitus ([facility]) Chronic obstructive pulmonary disease, unspecified ([facility]) Pulmonary emphysema, unspecified emphysema type ([facility]) Bilateral lower extremity edema Tobacco user Tobacco use disorder Hyperpigmentation of skin Other dyschromia Primary hypertension ([facility])- Primary Unspecified essential hypertension Diabetic polyneuropathy associated with type 2 diabetes mellitus ([facility]) Pulmonary emphysema, unspecified emphysema type ([facility]) Critical limb ischemia of right lower extremity ([facility]) PAD (peripheral artery disease) ([facility]) Unspecified peripheral vascular disease Gastroesophageal reflux disease, unspecified whether esophagitis present Bilateral lower extremity edema Venous ulcer of right leg ([facility]) Type 2 diabetes mellitus with complication, with long-term current use of insulin ([facility]) Tobacco user Tobacco use disorder Encounter for smoking cessation counseling Kidney stone Calculus of kidney Adrenal mass 1 cm to 4 cm in diameter ([facility]) Radiculopathy, lumbar region Thoracic or lumbosacral neuritis or radiculitis, unspecified Non-seasonal allergic rhinitis, unspecified trigger Type 2 diabetes mellitus with unspecified complications ([facility]) documented in this encounter [facility] HealthcareEvaluation note* Diagnosis Obstructive sleep apnea- Primary Obstructive sleep apnea (adult) (pediatric) Pulmonary emphysema, unspecified emphysema type ([facility]) Primary hypertension ([facility]) Unspecified essential hypertension Type 2 diabetes mellitus with complication, with long-term current use of insulin ([facility]) Anxiety and depression ([facility]) Bilateral lower extremity edema Pulmonary emphysema, unspecified emphysema type ([facility]/HCC)- Primary Primary hypertension ([facility]) Unspecified essential hypertension Class 3 severe obesity with serious comorbidity and body mass index (BMI) of 50.0 to 59.9 in adult, unspecified obesity type ([facility]) Obstructive sleep apnea Obstructive sleep [...] to 59.9 in adult, unspecified obesity type ([facility]/HCC) Encounter for subsequent annual wellness visit (AWV) in Medicare patient- Primary Type 2 diabetes mellitus with unspecified complications (CMS/HCC) Pulmonary emphysema, unspecified emphysema type (CMS/HCC) Moderate persistent asthma without complication (CMS/HCC) Primary hypertension (CMS/HCC) Unspecified essential hypertension Type 2 diabetes mellitus with complication, with long-term current use of insulin ([facility]) Class 3 severe obesity with [...] lower leg limited to breakdown of skin ([facility]) Non-recurrent acute suppurative otitis media of left ear without spontaneous rupture of tympanic membrane Primary hypertension ([facility])- Primary Unspecified essential hypertension Insomnia Insomnia, unspecified Type 2 diabetes mellitus with complication, with long-term current use of insulin ([facility]) Non-seasonal allergic rhinitis, unspecified trigger Type 2 diabetes mellitus with unspecified complications ([facility]) Anxiety and depression ([facility]) Gastro-esophageal reflux disease without esophagitis Edema, unspecified Edema Diabetic polyneuropathy associated with type 2 diabetes mellitus ([facility]) Chronic obstructive pulmonary disease, unspecified ([facility]) Pulmonary emphysema, unspecified emphysema type ([facility]) Bilateral lower extremity edema Tobacco user Tobacco use disorder Hyperpigmentation of skin Other dyschromia Primary hypertension ([facility])- Primary Unspecified essential hypertension Diabetic polyneuropathy associated with type 2 diabetes mellitus ([facility]) Pulmonary emphysema, unspecified emphysema type ([facility]) Critical limb ischemia of right lower extremity ([facility]) PAD (peripheral artery disease) ([facility]) Unspecified peripheral vascular disease Gastroesophageal reflux disease, unspecified whether esophagitis present Bilateral lower extremity edema Venous ulcer of right leg ([facility]) Type 2 diabetes mellitus with complication, with long-term current use of insulin ([facility]) Tobacco user Tobacco use disorder Encounter for smoking cessation counseling Kidney stone Calculus of kidney Adrenal mass 1 cm to 4 cm in diameter ([facility]) Radiculopathy, lumbar region Thoracic or lumbosacral neuritis or radiculitis, unspecified Non-seasonal allergic rhinitis, unspecified trigger Type 2 diabetes mellitus with unspecified complications ([facility]) Anxiety and depression ([facility])- Primary Morbid (severe) obesity due to excess calories ([facility]) Body mass index (BMI) 50.0-59.9, adult ([facility]) Malignant neoplasm of cervix uteri, unspecified ([facility]) Diabetic polyneuropathy associated with type 2 diabetes mellitus ([facility]) Chronic diastolic heart failure ([facility]) Chronic diastolic heart failure Primary hypertension ([facility]) Unspecified essential hypertension 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 ([facility]) Gastroesophageal reflux disease, unspecified whether esophagitis present Bilateral lower extremity edema Type 2 diabetes mellitus with complication, with long-term current use of insulin ([facility]) Tobacco user Tobacco use disorder Mixed hyperlipidemia ([facility]) Mixed hyperlipidemia Gout, unspecified cause, unspecified chronicity, unspecified site Vitamin deficiency Unspecified vitamin deficiency Gastro-esophageal reflux disease without esophagitis Edema, unspecified Edema Hyperlipidemia, unspecified ([facility]) Encounter for smoking cessation counseling Venous ulcer of right leg ([facility]) Antibiotic-induced yeast infection documented in this encounter [facility] HealthcareEvaluation note* Diagnosis Obstructive sleep apnea- Primary Obstructive sleep apnea (adult) (pediatric) Pulmonary emphysema, unspecified emphysema type ([facility]) Primary hypertension ([facility]) Unspecified essential hypertension Type 2 diabetes mellitus with complication, with long-term current use of insulin ([facility]) Anxiety and depression ([facility]) Bilateral lower extremity edema Pulmonary emphysema, unspecified emphysema type ([facility])- Primary Primary hypertension ([facility]) Unspecified essential hypertension Class 3 severe obesity with serious comorbidity and body mass index (BMI) of 50.0 to 59.9 in adult, unspecified obesity type Obstructive sleep apnea Obstructive sleep apnea (adult) (pediatric) Pulmonary hypertension ([facility]) Other chronic pulmonary heart diseases Tobacco user Tobacco use disorder Cardiomegaly Primary hypertension ([facility])- Primary Unspecified essential hypertension Gastroesophageal reflux disease, unspecified whether esophagitis present Type 2 diabetes mellitus with complication, with long-term current use of insulin ([facility]) Mixed hyperlipidemia ([facility]) Mixed hyperlipidemia Tobacco user Tobacco use disorder Encounter for screening mammogram for malignant neoplasm of breast Chronic obstructive pulmonary disease, unspecified Other specified chronic obstructive pulmonary disease Anxiety and depression ([facility]) Edema, unspecified Edema Hyperlipidemia, unspecified ([facility]) Diabetic polyneuropathy associated with type 2 diabetes mellitus ([facility]) Gout, unspecified cause, unspecified chronicity, unspecified site Non-seasonal allergic rhinitis, unspecified trigger Bilateral lower extremity edema COPD exacerbation ([facility]) Obstructive chronic bronchitis with exacerbation Pulmonary emphysema, unspecified emphysema type ([facility]) Venous insufficiency Unspecified venous (peripheral) insufficiency Candidiasis of breast COPD exacerbation ([facility])- Primary Obstructive chronic bronchitis with exacerbation Pulmonary hypertension ([facility]) Other chronic pulmonary heart diseases Class 3 severe obesity with serious comorbidity and body mass index (BMI) of 50.0 to 59.9 in adult, unspecified obesity type Encounter for subsequent annual wellness visit (AWV) in Medicare patient- Primary Type 2 diabetes mellitus with unspecified complications Pulmonary emphysema, unspecified emphysema type ([facility]) Moderate persistent asthma without complication ([facility]) Primary hypertension ([facility]) Unspecified essential hypertension Type 2 diabetes mellitus with complication, with long-term current use of insulin ([facility]) Class 3 severe obesity with serious comorbidity and body mass index (BMI) of 50.0 to 59.9 in adult, unspecified obesity type Tobacco user Tobacco use disorder Other headache syndrome Malignant neoplasm of cervix uteri, unspecified Other specified disorders of adrenal gland Major depressive disorder, single episode, mild (HCC) ([facility]) Major depressive disorder, single episode, mild 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 exposed Chronic respiratory failure, unspecified whether with hypoxia or hypercapnia Disorder of adrenal gland, unspecified Non-pressure chronic ulcer of other part of right lower leg limited to breakdown of skin ([facility]) Non-recurrent acute suppurative otitis media of left ear without spontaneous rupture of tympanic membrane Primary hypertension ([facility])- Primary Unspecified essential hypertension Insomnia Insomnia, unspecified Type 2 diabetes mellitus with complication, with long-term current use of insulin ([facility]) Non-seasonal allergic rhinitis, unspecified trigger Type 2 diabetes mellitus with unspecified complications Anxiety and depression ([facility]) Gastro-esophageal reflux disease without esophagitis Edema, unspecified Edema Diabetic polyneuropathy associated with type 2 diabetes mellitus ([facility]) Chronic obstructive pulmonary disease, unspecified Pulmonary emphysema, unspecified emphysema type ([facility]) Bilateral lower extremity edema Tobacco user Tobacco use disorder Hyperpigmentation of skin Other dyschromia Primary hypertension ([facility])- Primary Unspecified essential hypertension Diabetic polyneuropathy associated with type 2 diabetes mellitus ([facility]) Pulmonary emphysema, unspecified emphysema type ([facility]) Critical limb ischemia of right lower extremity ([facility]) PAD (peripheral artery disease) ([facility]) Unspecified peripheral vascular disease Gastroesophageal reflux disease, unspecified whether esophagitis present Bilateral lower extremity edema Venous ulcer of right leg ([facility]) Type 2 diabetes mellitus with complication, with long-term current use of insulin ([facility]) Tobacco user Tobacco use disorder Encounter for smoking cessation counseling Kidney stone Calculus of kidney Adrenal mass 1 cm to 4 cm in diameter ([facility]) Radiculopathy, lumbar region Thoracic or lumbosacral neuritis or radiculitis, unspecified Non-seasonal allergic rhinitis, unspecified trigger Type 2 diabetes mellitus with unspecified complications Anxiety and depression ([facility])- Primary Morbid (severe) obesity due to excess calories ([facility]) Body mass index (BMI) 50.0-59.9, adult ([facility] [place] [facility]) Malignant neoplasm of cervix uteri, unspecified Diabetic polyneuropathy associated with type 2 diabetes mellitus ([facility]) Chronic diastolic heart failure ([facility] [place]) Chronic diastolic heart failure Primary hypertension ([facility] [place]) Unspecified essential hypertension 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 Gastroesophageal reflux disease, unspecified whether esophagitis present Bilateral lower extremity edema Type 2 diabetes mellitus with complication, with long-term current use of insulin ([facility] [place]) Tobacco user Tobacco use disorder Mixed hyperlipidemia ([facility] [place]) Mixed hyperlipidemia Gout, unspecified cause, unspecified chronicity, unspecified site Vitamin deficiency Unspecified vitamin deficiency Gastro-esophageal reflux disease without esophagitis Edema, unspecified Edema Hyperlipidemia, unspecified ([facility] [place]) Encounter for smoking cessation counseling Venous ulcer of right leg ([facility] [place]) Antibiotic-induced yeast infection Type 2 diabetes mellitus with hyperglycemia, with long-term current use of insulin ([facility] [place])- Primary Encounter for dietary consultation Vitamin D deficiency Primary hypertension ([facility] [place]) Unspecified essential hypertension Insulin long-term use ([facility] [place]) Encounter for long-term (current) use of insulin Hyperlipemia, mixed ([facility]) Mixed hyperlipidemia Microalbuminuria Proteinuria Class 3 severe obesity due to excess calories with serious comorbidity and body mass index (BMI) of 50.0 to 59.9 in adult documented in this encounter [facility] HealthcareEvaluation note* Diagnosis Obstructive sleep apnea- Primary Obstructive sleep apnea (adult) (pediatric) Pulmonary emphysema, unspecified emphysema type ([facility]) Primary hypertension ([facility]) Unspecified essential hypertension Type 2 diabetes mellitus with complication, with long-term current use of insulin ([facility] [place]) Anxiety and depression ([facility] [place]) Bilateral lower extremity edema Pulmonary emphysema, unspecified emphysema type ([facility])- Primary Primary hypertension ([facility]) Unspecified essential hypertension Class 3 severe obesity with serious comorbidity and body mass index (BMI) of 50.0 to 59.9 in adult, unspecified obesity type Obstructive sleep apnea Obstructive sleep apnea (adult) (pediatric) Pulmonary hypertension ([facility]) Other chronic pulmonary heart diseases Tobacco user Tobacco use disorder Cardiomegaly Primary hypertension ([facility])- Primary Unspecified essential hypertension Gastroesophageal reflux disease, unspecified whether esophagitis present Type 2 diabetes mellitus with complication, with long-term current use of insulin ([facility]) Mixed hyperlipidemia ([facility]) Mixed hyperlipidemia Tobacco user Tobacco use disorder Encounter for screening mammogram for malignant neoplasm of breast Chronic obstructive pulmonary disease, unspecified Other specified chronic obstructive pulmonary disease Anxiety and depression ([facility]) Edema, unspecified Edema Hyperlipidemia, unspecified ([facility]) Diabetic polyneuropathy associated with type 2 diabetes mellitus ([facility]) Gout, unspecified cause, unspecified chronicity, unspecified site Non-seasonal allergic rhinitis, unspecified trigger Bilateral lower extremity edema COPD exacerbation ([facility]) Obstructive chronic bronchitis with exacerbation Pulmonary emphysema, unspecified emphysema type ([facility]) Venous insufficiency Unspecified venous (peripheral) insufficiency Candidiasis of breast COPD exacerbation ([facility])- Primary Obstructive chronic bronchitis with exacerbation Pulmonary hypertension ([facility]) Other chronic pulmonary heart diseases Class 3 severe obesity with serious comorbidity and body mass index (BMI) of 50.0 to 59.9 in adult, unspecified obesity type Encounter for subsequent annual wellness visit (AWV) in Medicare patient- Primary Type 2 diabetes mellitus with unspecified complications Pulmonary emphysema, unspecified emphysema type ([facility]) Moderate persistent asthma without complication ([facility]) Primary hypertension ([facility]) Unspecified essential hypertension Type 2 diabetes mellitus with complication, with long-term current use of insulin ([facility]) Class 3 severe obesity with serious comorbidity and body mass index (BMI) of 50.0 to 59.9 in adult, unspecified obesity type Tobacco user Tobacco use disorder Other headache syndrome Malignant neoplasm of cervix uteri, unspecified Other specified disorders of adrenal gland Major depressive disorder, single episode, mild (HCC) ([facility]) Major depressive disorder, single episode, mild 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 exposed Chronic respiratory failure, unspecified whether with hypoxia or hypercapnia Disorder of adrenal gland, unspecified Non-pressure chronic ulcer of other part of right lower leg limited to breakdown of skin ([facility]) Non-recurrent acute suppurative otitis media of left ear without spontaneous rupture of tympanic membrane Primary hypertension ([facility])- Primary Unspecified essential hypertension Insomnia Insomnia, unspecified Type 2 diabetes mellitus with complication, with long-term current use of insulin ([facility]) Non-seasonal allergic rhinitis, unspecified trigger Type 2 diabetes mellitus with unspecified complications Anxiety and depression ([facility]) Gastro-esophageal reflux disease without esophagitis Edema, unspecified Edema Diabetic polyneuropathy associated with type 2 diabetes mellitus ([facility]) Chronic obstructive pulmonary disease, unspecified Pulmonary emphysema, unspecified emphysema type ([facility]) Bilateral lower extremity edema Tobacco user Tobacco use disorder Hyperpigmentation of skin Other dyschromia Primary hypertension ([facility])- Primary Unspecified essential hypertension Diabetic polyneuropathy associated with type 2 diabetes mellitus ([facility]) Pulmonary emphysema, unspecified emphysema type ([facility]) Critical limb ischemia of right lower extremity ([facility]) PAD (peripheral artery disease) ([facility]) Unspecified peripheral vascular disease Gastroesophageal reflux disease, unspecified whether esophagitis present Bilateral lower extremity edema Venous ulcer of right leg ([facility]) Type 2 diabetes mellitus with complication, with long-term current use of insulin ([facility]) Tobacco user Tobacco use disorder Encounter for smoking cessation counseling Kidney stone Calculus of kidney Adrenal mass 1 cm to 4 cm in diameter ([facility]) Radiculopathy, lumbar region Thoracic or lumbosacral neuritis or radiculitis, unspecified Non-seasonal allergic rhinitis, unspecified trigger Type 2 diabetes mellitus with unspecified complications Anxiety and depression ([facility])- Primary Morbid (severe) obesity due to excess calories ([facility]) Body mass index (BMI) 50.0-59.9, adult ([facility]) Malignant neoplasm of cervix uteri, unspecified Diabetic polyneuropathy associated with type 2 diabetes mellitus ([facility]) Chronic diastolic heart failure ([facility]) Chronic diastolic heart failure Primary hypertension ([facility]) Unspecified essential hypertension 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 Gastroesophageal reflux disease, unspecified whether esophagitis present Bilateral lower extremity edema Type 2 diabetes mellitus with complication, with long-term current use of insulin ([facility]) Tobacco user Tobacco use disorder Mixed hyperlipidemia ([facility]) Mixed hyperlipidemia Gout, unspecified cause, unspecified chronicity, unspecified site Vitamin deficiency Unspecified vitamin deficiency Gastro-esophageal reflux disease without esophagitis Edema, unspecified Edema Hyperlipidemia, unspecified ([facility] [place]) Encounter for smoking cessation counseling Venous ulcer of right leg ([facility]) Antibiotic-induced yeast infection Chronic obstructive pulmonary disease, unspecified documented in this encounter [facility] HealthcareEvaluation note* Diagnosis Obstructive sleep apnea- Primary Obstructive sleep apnea (adult) (pediatric) Pulmonary emphysema, unspecified emphysema type ([facility]) Primary hypertension ([facility]) Unspecified essential hypertension Type 2 diabetes mellitus with complication, with long-term current use of insulin ([facility]) Anxiety and depression ([facility]) Bilateral lower extremity edema Pulmonary emphysema, unspecified emphysema type ([facility])- Primary Primary hypertension ([facility]) Unspecified essential hypertension Class 3 severe obesity with serious comorbidity and body mass index (BMI) of 50.0 to 59.9 in adult, unspecified obesity type Obstructive sleep apnea Obstructive sleep apnea (adult) (pediatric) Pulmonary hypertension ([facility]) Other chronic pulmonary heart diseases Tobacco user Tobacco use disorder Cardiomegaly Primary hypertension ([facility])- Primary Unspecified essential hypertension Gastroesophageal reflux disease, unspecified whether esophagitis present Type 2 diabetes mellitus with complication, with long-term current use of insulin ([facility]) Mixed hyperlipidemia ([facility]) Mixed hyperlipidemia Tobacco user Tobacco use disorder Encounter for screening mammogram for malignant neoplasm of breast Chronic obstructive pulmonary disease, unspecified Other specified chronic obstructive pulmonary disease Anxiety and depression ([facility]) Edema, unspecified Edema Hyperlipidemia, unspecified ([facility]) Diabetic polyneuropathy associated with type 2 diabetes mellitus ([facility]) Gout, unspecified cause, unspecified chronicity, unspecified site Non-seasonal allergic rhinitis, unspecified trigger Bilateral lower extremity edema COPD exacerbation ([facility]) Obstructive chronic bronchitis with exacerbation Pulmonary emphysema, unspecified emphysema type ([facility]) Venous insufficiency Unspecified venous (peripheral) insufficiency Candidiasis of breast COPD exacerbation ([facility])- Primary Obstructive chronic bronchitis with exacerbation Pulmonary hypertension ([facility]) Other chronic pulmonary heart diseases Class 3 severe obesity with serious comorbidity and body mass index (BMI) of 50.0 to 59.9 in adult, unspecified obesity type Encounter for subsequent annual wellness visit (AWV) in Medicare patient- Primary Type 2 diabetes mellitus with unspecified complications Pulmonary emphysema, unspecified emphysema type ([facility]) Moderate persistent asthma without complication ([facility]) Primary hypertension ([facility]) Unspecified essential hypertension Type 2 diabetes mellitus with complication, with long-term current use of insulin ([facility]) Class 3 severe obesity with serious comorbidity and body mass index (BMI) of 50.0 to 59.9 in adult, unspecified obesity type Tobacco user Tobacco use disorder Other headache syndrome Malignant neoplasm of cervix uteri, unspecified Other specified disorders of adrenal gland Major depressive disorder, single episode, mild (HCC) ([facility]) Major depressive disorder, single episode, mild 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 exposed Chronic respiratory failure, unspecified whether with hypoxia or hypercapnia Disorder of adrenal gland, unspecified Non-pressure chronic ulcer of other part of right lower leg limited to breakdown of skin ([facility]) Non-recurrent acute suppurative otitis media of left ear without spontaneous rupture of tympanic membrane Primary hypertension ([facility])- Primary Unspecified essential hypertension Insomnia Insomnia, unspecified Type 2 diabetes mellitus with complication, with long-term current use of insulin ([facility]) Non-seasonal allergic rhinitis, unspecified trigger Type 2 diabetes mellitus with unspecified complications Anxiety and depression ([facility]) Gastro-esophageal reflux disease without esophagitis Edema, unspecified Edema Diabetic polyneuropathy associated with type 2 diabetes mellitus ([facility]) Chronic obstructive pulmonary disease, unspecified Pulmonary emphysema, unspecified emphysema type ([facility]) Bilateral lower extremity edema Tobacco user Tobacco use disorder Hyperpigmentation of skin Other dyschromia Primary hypertension ([facility])- Primary Unspecified essential hypertension Diabetic polyneuropathy associated with type 2 diabetes mellitus ([facility]) Pulmonary emphysema, unspecified emphysema type ([facility]) Critical limb ischemia of right lower extremity ([facility]) PAD (peripheral artery disease) ([facility]) Unspecified peripheral vascular disease Gastroesophageal reflux disease, unspecified whether esophagitis present Bilateral lower extremity edema Venous ulcer of right leg ([facility]) Type 2 diabetes mellitus with complication, with long-term current use of insulin ([facility]) Tobacco user Tobacco use disorder Encounter for smoking cessation counseling Kidney stone Calculus of kidney Adrenal mass 1 cm to 4 cm in diameter ([facility]) Radiculopathy, lumbar region Thoracic or lumbosacral neuritis or radiculitis, unspecified Non-seasonal allergic rhinitis, unspecified trigger Type 2 diabetes mellitus with unspecified complications Anxiety and depression ([facility])- Primary Morbid (severe) obesity due to excess calories ([facility]) Body mass index (BMI) 50.0-59.9, adult ([facility]) Malignant neoplasm of cervix uteri, unspecified Diabetic polyneuropathy associated with type 2 diabetes mellitus ([facility]) Chronic diastolic heart failure ([facility]) Chronic diastolic heart failure Primary hypertension ([facility]) Unspecified essential hypertension 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 Gastroesophageal reflux disease, unspecified whether esophagitis present Bilateral lower extremity edema Type 2 diabetes mellitus with complication, with long-term current use of insulin ([facility]) Tobacco user Tobacco use disorder Mixed hyperlipidemia ([facility]) Mixed hyperlipidemia Gout, unspecified cause, unspecified chronicity, unspecified site Vitamin deficiency Unspecified vitamin deficiency Gastro-esophageal reflux disease without esophagitis Edema, unspecified Edema Hyperlipidemia, unspecified ([facility]) Encounter for smoking cessation counseling Venous ulcer of right leg ([facility]) Antibiotic-induced yeast infection Primary hypertension ([facility])- Primary Unspecified essential hypertension Diabetic polyneuropathy associated with type 2 diabetes mellitus ([facility]) Chronic diastolic heart failure ([facility]) Chronic diastolic heart failure Bilateral lower extremity edema Morbid (severe) obesity due to excess calories ([facility]) Type 2 diabetes mellitus with complication, with long-term current use of insulin ([facility]) Anxiety and depression ([facility]) Cigarette nicotine dependence without complication Encounter for screening mammogram for malignant neoplasm of breast Insomnia Insomnia, unspecified Non-seasonal allergic rhinitis, unspecified trigger Type 2 diabetes mellitus with unspecified complications Vitamin D deficiency, unspecified Gastro-esophageal reflux disease without esophagitis PAD (peripheral artery disease) ([facility]) Unspecified peripheral vascular disease Gastroesophageal reflux disease, unspecified whether esophagitis present Venous ulcer of right leg ([facility]) documented in this encounter [facility] HealthcareEvaluation note* Diagnosis Obstructive sleep apnea- Primary Obstructive sleep apnea (adult) (pediatric) Pulmonary emphysema, unspecified emphysema type (HCC) Primary hypertension Unspecified essential hypertension Type 2 diabetes mellitus with complication, with long-term current use of insulin ([facility]) Anxiety and depression Bilateral lower extremity edema Pulmonary emphysema, unspecified emphysema type (HCC)- Primary Primary hypertension Unspecified essential hypertension Class 3 severe obesity with serious comorbidity and body mass index (BMI) of 50.0 to 59.9 in adult, unspecified obesity type ([facility]) Obstructive sleep apnea Obstructive sleep [...] to 59.9 in adult, unspecified obesity type ([facility]) Encounter for subsequent annual wellness visit (AWV) in Medicare patient- Primary Type 2 diabetes mellitus with unspecified complications (HCC) Pulmonary emphysema, unspecified emphysema type ([facility]) Moderate persistent asthma without complication (HCC) Primary hypertension Unspecified essential hypertension Type 2 diabetes mellitus with complication, with long-term current use of insulin ([facility]) Class 3 severe obesity with serious comorbidity and body mass index (BMI) of 50.0 to 59.9 in adult, unspecified obesity type ([facility]) Tobacco user Tobacco use disorder Other headache syndrome Malignant neoplasm of cervix uteri, unspecified (HCC) Other specified disorders of adrenal gland ([facility]) Major depressive disorder, single episode, mild Major depressive disorder, single episode, mild 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 exposed ([facility]) Chronic respiratory failure, unspecified whether [...] Critical limb ischemia of right lower extremity ([facility]) PAD (peripheral artery disease) Unspecified peripheral vascular disease Gastroesophageal reflux disease, unspecified whether esophagitis present Bilateral lower extremity edema Venous ulcer of right leg (HCC) Type 2 diabetes mellitus with complication, with long-term current use of insulin ([facility]) Tobacco user Tobacco use disorder Encounter for smoking cessation counseling Kidney stone Calculus of kidney Adrenal mass 1 cm to 4 cm in diameter ([facility]) Radiculopathy, lumbar region Thoracic or lumbosacral neuritis or radiculitis, unspecified Non-seasonal allergic rhinitis, unspecified trigger Type 2 diabetes mellitus with unspecified complications ([facility]) Anxiety and depression- Primary Morbid (severe) obesity due to excess calories ([facility]) Body mass index (BMI) 50.0-59.9, adult ([facility]) Malignant neoplasm of cervix uteri, unspecified ([facility]) Diabetic polyneuropathy associated with type 2 diabetes mellitus ([facility]) Chronic diastolic heart failure (HCC) Chronic diastolic heart failure Primary hypertension Unspecified essential hypertension 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 ([facility]) Gastroesophageal reflux disease, unspecified whether esophagitis present Bilateral lower extremity edema Type 2 diabetes mellitus with complication, with long-term current use of insulin ([facility]) Tobacco user Tobacco use disorder Mixed hyperlipidemia Mixed hyperlipidemia Gout, unspecified cause, unspecified chronicity, unspecified site Vitamin deficiency Unspecified vitamin deficiency Gastro-esophageal reflux disease without esophagitis Edema, unspecified Edema Hyperlipidemia, unspecified Encounter for smoking cessation counseling Venous ulcer of right leg ([facility]) Antibiotic-induced yeast infection Primary hypertension- Primary Unspecified essential hypertension Diabetic polyneuropathy associated with type 2 diabetes mellitus (HCC) Chronic diastolic heart failure (HCC) Chronic diastolic heart failure Bilateral lower extremity edema Morbid (severe) obesity due to excess calories ([facility]) Type 2 diabetes mellitus with complication, with long-term current use of insulin ([facility]) Anxiety and depression Cigarette nicotine dependence without complication Encounter for screening mammogram for malignant neoplasm of breast Insomnia Insomnia, unspecified Non-seasonal allergic rhinitis, unspecified trigger Type 2 diabetes mellitus with unspecified complications ([facility]) Vitamin D deficiency, unspecified Gastro-esophageal reflux disease without esophagitis PAD (peripheral artery disease) Unspecified peripheral vascular disease Gastroesophageal reflux disease, unspecified whether esophagitis present Venous ulcer of right leg ([facility]) Cellulitis of left lower extremity- Primary COPD exacerbation (HCC) Obstructive chronic bronchitis with exacerbation Primary hypertension Unspecified essential hypertension Pulmonary hypertension ([facility]) Other chronic pulmonary heart diseases Morbid (severe) obesity due to excess calories ([facility]) Type 2 diabetes mellitus with complication, with long-term current use of insulin ([facility]) Anxiety and depression Fever, unspecified fever cause Hyperlipidemia, unspecified Tobacco user Tobacco use disorder Encounter for smoking cessation counseling documented in this encounter [facility]* Diagnosis Obstructive sleep apnea- Primary Obstructive sleep apnea (adult) (pediatric) Pulmonary emphysema, unspecified emphysema type ([facility]) Primary hypertension ([facility]) Unspecified essential hypertension Type 2 diabetes mellitus with complication, with long-term current use of insulin ([facility]) Anxiety and depression ([facility]) Bilateral lower extremity edema Pulmonary emphysema, unspecified emphysema type ([facility])- Primary Primary hypertension ([facility]) Unspecified essential hypertension Class 3 severe obesity with serious comorbidity and body mass index (BMI) of 50.0 to 59.9 in adult, unspecified obesity type Obstructive sleep apnea Obstructive sleep apnea (adult) (pediatric) Pulmonary hypertension ([facility]) Other chronic pulmonary heart diseases Tobacco user Tobacco use disorder Cardiomegaly Primary hypertension ([facility])- Primary Unspecified essential hypertension Gastroesophageal reflux disease, unspecified whether esophagitis present Type 2 diabetes mellitus with complication, with long-term current use of insulin ([facility]) Mixed hyperlipidemia ([facility]) Mixed hyperlipidemia Tobacco user Tobacco use disorder Encounter for screening mammogram for malignant neoplasm of breast Chronic obstructive pulmonary disease, unspecified Other specified chronic obstructive pulmonary disease Anxiety and depression ([facility]) Edema, unspecified Edema Hyperlipidemia, unspecified ([facility]) Diabetic polyneuropathy associated with type 2 diabetes mellitus ([facility]) Gout, unspecified cause, unspecified chronicity, unspecified site Non-seasonal allergic rhinitis, unspecified trigger Bilateral lower extremity edema COPD exacerbation ([facility]) Obstructive chronic bronchitis with exacerbation Pulmonary emphysema, unspecified emphysema type ([facility]) Venous insufficiency Unspecified venous (peripheral) insufficiency Candidiasis of breast COPD exacerbation ([facility])- Primary Obstructive chronic bronchitis with exacerbation Pulmonary hypertension ([facility]) Other chronic pulmonary heart diseases Class 3 severe obesity with serious comorbidity and body mass index (BMI) of 50.0 to 59.9 in adult, unspecified obesity type Encounter for subsequent annual wellness visit (AWV) in Medicare patient- Primary Type 2 diabetes mellitus with unspecified complications Pulmonary emphysema, unspecified emphysema type ([facility]) Moderate persistent asthma without complication ([facility]) Primary hypertension ([facility]) Unspecified essential hypertension Type 2 diabetes mellitus with complication, with long-term current use of insulin ([facility]) Class 3 severe obesity with serious comorbidity and body mass index (BMI) of 50.0 to 59.9 in adult, unspecified obesity type Tobacco user Tobacco use disorder Other headache syndrome Malignant neoplasm of cervix uteri, unspecified Other specified disorders of adrenal gland Major depressive disorder, single episode, mild (HCC) ([facility]) Major depressive disorder, single episode, mild Non-pressure chronic ulcer of other part of left lower leg with fat layer exposed Chronic respiratory failure, unspecified whether with hypoxia or hypercapnia Disorder of adrenal gland, unspecified Non-pressure chronic ulcer of other part of right lower leg limited to breakdown of skin ([facility]) Non-recurrent acute suppurative otitis media of left ear without spontaneous rupture of tympanic membrane Primary hypertension ([facility])- Primary Unspecified essential hypertension Insomnia Insomnia, unspecified Type 2 diabetes mellitus with complication, with long-term current use of insulin ([facility]) Non-seasonal allergic rhinitis, unspecified trigger Type 2 diabetes mellitus with unspecified complications Anxiety and depression ([facility]) Gastro-esophageal reflux disease without esophagitis Edema, unspecified Edema Diabetic polyneuropathy associated with type 2 diabetes mellitus ([facility]) Chronic obstructive pulmonary disease, unspecified Pulmonary emphysema, unspecified emphysema type ([facility]) Bilateral lower extremity edema Tobacco user Tobacco use disorder Hyperpigmentation of skin Other dyschromia Primary hypertension ([facility])- Primary Unspecified essential hypertension Diabetic polyneuropathy associated with type 2 diabetes mellitus ([facility]) Pulmonary emphysema, unspecified emphysema type ([facility]/HCC) Critical limb ischemia of right lower extremity ([facility]) PAD (peripheral artery disease) ([facility]) Unspecified peripheral vascular disease Gastroesophageal reflux disease, unspecified whether esophagitis present Bilateral lower extremity edema Venous ulcer of right leg ([facility]) Type 2 diabetes mellitus with complication, with long-term current use of insulin ([facility]) Tobacco user Tobacco use disorder Encounter for smoking cessation counseling Kidney stone Calculus of kidney Adrenal mass 1 cm to 4 cm in diameter ([facility]) Radiculopathy, lumbar region Thoracic or lumbosacral neuritis or radiculitis, unspecified Non-seasonal allergic rhinitis, unspecified trigger Type 2 diabetes mellitus with unspecified complications Anxiety and depression ([facility])- Primary Morbid (severe) obesity due to excess calories ([facility]) Body mass index (BMI) 50.0-59.9, adult ([facility]) Malignant neoplasm of cervix uteri, unspecified Diabetic polyneuropathy associated with type 2 diabetes mellitus ([facility]) Chronic diastolic heart failure ([facility]) Chronic diastolic heart failure Primary hypertension ([facility]) Unspecified essential hypertension 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 Gastroesophageal reflux disease, unspecified whether esophagitis present Bilateral lower extremity edema Type 2 diabetes mellitus with complication, with long-term current use of insulin ([facility]) Tobacco user Tobacco use disorder Mixed hyperlipidemia ([facility]) Mixed hyperlipidemia Gout, unspecified cause, unspecified chronicity, unspecified site Vitamin deficiency Unspecified vitamin deficiency Gastro-esophageal reflux disease without esophagitis Edema, unspecified Edema Hyperlipidemia, unspecified ([facility]) Encounter for smoking cessation counseling Venous ulcer of right leg ([facility]) Antibiotic-induced yeast infection Primary hypertension ([facility])- Primary Unspecified essential hypertension Diabetic polyneuropathy associated with type 2 diabetes mellitus ([facility]) Chronic diastolic heart failure ([facility]) Chronic diastolic heart failure Bilateral lower extremity edema Morbid (severe) obesity due to excess calories ([facility]) Type 2 diabetes mellitus with complication, with long-term current use of insulin ([facility]) Anxiety and depression ([facility]) Cigarette nicotine dependence without complication Encounter for screening mammogram for malignant neoplasm of breast Insomnia Insomnia, unspecified Non-seasonal allergic rhinitis, unspecified trigger Type 2 diabetes mellitus with unspecified complications Vitamin D deficiency, unspecified Gastro-esophageal reflux disease without esophagitis PAD (peripheral artery disease) ([facility]) Unspecified peripheral vascular disease Gastroesophageal reflux disease, unspecified whether esophagitis present Venous ulcer of right leg ([facility]) Cellulitis of left lower extremity- Primary COPD exacerbation (CMS/HCC) Obstructive chronic bronchitis with exacerbation Primary hypertension (CMS/HCC) Unspecified essential hypertension Pulmonary hypertension (CMS/HCC) Other chronic pulmonary heart diseases Morbid (severe) obesity due to excess calories (CMS/HCC) Type 2 diabetes mellitus with complication, with long-term current use of insulin ([facility]/HCC) Anxiety and depression ([facility]/HCC) Fever, unspecified fever cause documented in this encounter [facility]* Diagnosis Obstructive sleep apnea- [...] to 59.9 in adult, unspecified obesity type ([facility]) Obstructive sleep apnea Obstructive sleep [...] to 59.9 in adult, unspecified obesity type ([facility]) Encounter for subsequent annual wellness visit (AWV) in Medicare patient- Primary Type 2 diabetes mellitus with unspecified complications (HCC) Pulmonary emphysema, unspecified emphysema type (HCC) Moderate persistent asthma without complication (HCC) Primary hypertension Unspecified essential hypertension Type 2 diabetes mellitus with complication, with long-term current use of insulin ([facility]) Class 3 severe obesity with serious comorbidity and body mass index (BMI) of 50.0 to 59.9 in adult, unspecified obesity type ([facility]) Tobacco user Tobacco use disorder Other headache syndrome Malignant neoplasm of cervix uteri, unspecified ([facility]) Other specified disorders of adrenal gland ([facility]) Major depressive disorder, single episode, mild Major depressive disorder, single episode, mild Non-pressure chronic ulcer of other part of left lower leg with fat layer exposed ([facility]) Chronic respiratory failure, unspecified whether with hypoxia or hypercapnia ([facility]) Disorder of adrenal gland, unspecified ([facility]) Non-pressure chronic ulcer of other part of right lower leg limited to breakdown of skin ([facility]) Non-recurrent acute suppurative otitis media of left ear without spontaneous rupture of tympanic membrane Primary hypertension- Primary Unspecified essential hypertension Insomnia Insomnia, unspecified Type 2 diabetes mellitus with complication, with long-term current use of insulin ([facility]) Non-seasonal allergic rhinitis, unspecified trigger Type 2 diabetes mellitus with unspecified complications ([facility]) Anxiety and depression Gastro-esophageal reflux disease without esophagitis Edema, unspecified Edema Diabetic polyneuropathy associated with type 2 diabetes mellitus ([facility]) Chronic obstructive pulmonary disease, unspecified ([facility]) Pulmonary emphysema, unspecified emphysema type ([facility]) Bilateral lower extremity edema Tobacco user Tobacco use disorder Hyperpigmentation of skin Other dyschromia Primary hypertension- Primary Unspecified essential hypertension Diabetic polyneuropathy associated with type 2 diabetes mellitus ([facility]) Pulmonary emphysema, unspecified emphysema type ([facility]) Critical limb ischemia of right lower extremity ([facility]) PAD (peripheral artery disease) Unspecified peripheral vascular disease Gastroesophageal reflux disease, unspecified whether esophagitis present Bilateral lower extremity edema Venous ulcer of right leg ([facility]) Type 2 diabetes mellitus with complication, with long-term current use of insulin ([facility]) Tobacco user Tobacco use disorder Encounter for smoking cessation counseling Kidney stone Calculus of kidney Adrenal mass 1 cm to 4 cm in diameter ([facility]) Radiculopathy, lumbar region Thoracic or lumbosacral neuritis or radiculitis, unspecified Non-seasonal allergic rhinitis, unspecified trigger Type 2 diabetes mellitus with unspecified complications ([facility]) Anxiety and depression- Primary Morbid (severe) obesity due to excess calories ([facility]) Body mass index (BMI) 50.0-59.9, adult ([facility]-HCC) Malignant neoplasm of cervix uteri, unspecified (HCC) [...] Morbid (severe) obesity due to excess calories ([facility]) Type 2 diabetes mellitus with [...] Morbid (severe) obesity due to excess calories ([facility]) Type 2 diabetes mellitus with [...] Morbid (severe) obesity due to excess calories ([facility]) Type 2 diabetes mellitus with hyperglycemia, with long-term current use of insulin (HCC) documented in this encounter [facility] HealthcareEvaluation note* Diagnosis Obstructive sleep apnea- Primary [...] to 59.9 in adult, unspecified obesity type ([facility]) Obstructive sleep apnea Obstructive sleep [...] to 59.9 in adult, unspecified obesity type ([facility]) Encounter for subsequent annual wellness [...] to 59.9 in adult, unspecified obesity type ([facility]) Tobacco user Tobacco use disorder Other headache syndrome Malignant neoplasm of cervix uteri, unspecified (HCC) Other specified disorders of adrenal gland ([facility]) Major depressive disorder, single episode, mild Major depressive disorder, single episode, mild Non-pressure chronic ulcer of other part of left lower leg with fat layer exposed ([facility]) Chronic respiratory failure, unspecified whether with hypoxia or hypercapnia ([facility]) Disorder of adrenal gland, unspecified (HCC) Non-pressure chronic ulcer of other part of right lower leg limited to breakdown of skin ([facility]) Non-recurrent acute suppurative otitis media of left ear without spontaneous rupture of tympanic membrane Primary hypertension- Primary Unspecified essential hypertension Insomnia Insomnia, unspecified Type 2 diabetes mellitus with complication, with long-term current use of insulin ([facility]) Non-seasonal allergic rhinitis, unspecified trigger Type 2 diabetes mellitus with unspecified complications ([facility]) Anxiety and depression Gastro-esophageal reflux disease without esophagitis Edema, unspecified Edema Diabetic polyneuropathy associated with type 2 diabetes mellitus ([facility]) Chronic obstructive pulmonary disease, unspecified ([facility]) Pulmonary emphysema, unspecified emphysema type ([facility]) Bilateral lower extremity edema Tobacco user Tobacco use disorder Hyperpigmentation of skin Other dyschromia Primary hypertension- Primary Unspecified essential hypertension Diabetic polyneuropathy associated with type 2 diabetes mellitus ([facility]) Pulmonary emphysema, unspecified emphysema type ([facility]) Critical limb ischemia of right lower extremity ([facility]) PAD (peripheral artery disease) Unspecified peripheral vascular disease Gastroesophageal reflux disease, unspecified whether esophagitis present Bilateral lower extremity edema Venous ulcer of right leg ([facility]) Type 2 diabetes mellitus with complication, with long-term current use of insulin ([facility]) Tobacco user Tobacco use disorder Encounter for smoking cessation counseling Kidney stone Calculus of kidney Adrenal mass 1 cm to 4 cm in diameter ([facility]) Radiculopathy, lumbar region Thoracic or lumbosacral neuritis or radiculitis, unspecified Non-seasonal allergic rhinitis, unspecified trigger Type 2 diabetes mellitus with unspecified complications ([facility]) Anxiety and depression- Primary Morbid (severe) obesity due to excess calories ([facility]) Body mass index (BMI) 50.0-59.9, adult ([facility]) Malignant neoplasm of cervix uteri, unspecified [...] Morbid (severe) obesity due to excess calories ([facility]) Type 2 diabetes mellitus with [...] Morbid (severe) obesity due to excess calories ([facility]) Type 2 diabetes mellitus with [...] Morbid (severe) obesity due to excess calories ([facility]) Encounter for dietary consultation- Primary Type 2 diabetes mellitus with hyperglycemia, with long-term current use of insulin (HCC) Vitamin D deficiency Primary hypertension Unspecified essential hypertension Insulin long-term use ([facility]) Encounter for long-term (current) use of insulin Hyperlipemia, mixed Mixed hyperlipidemia Microalbuminuria Proteinuria Class 3 severe obesity due to excess calories with serious comorbidity and body mass index (BMI) of 50.0 to 59.9 in adult ([facility]) documented in this encounter [facility] HealthcareEvaluation note* Diagnosis Obstructive sleep apnea- Primary Obstructive sleep apnea (adult) (pediatric) Pulmonary emphysema, unspecified emphysema type ([facility]) Primary hypertension Unspecified essential hypertension Type 2 diabetes mellitus with complication, with long-term current use of insulin (HCC) Anxiety and depression Bilateral lower extremity edema Pulmonary emphysema, unspecified emphysema type (HCC)- Primary Primary hypertension Unspecified essential hypertension Class 3 severe obesity with serious comorbidity and body mass index (BMI) of 50.0 to 59.9 in adult, unspecified obesity type ([facility]) Obstructive sleep apnea Obstructive sleep apnea [...] polyneuropathy associated with type 2 diabetes mellitus ([facility]) Gout, unspecified cause, unspecified chronicity, [...] to 59.9 in adult, unspecified obesity type ([facility]) Encounter for subsequent annual wellness visit (AWV) in Medicare patient- Primary Type 2 diabetes mellitus with unspecified complications ([facility]) Pulmonary emphysema, unspecified emphysema type ([facility]) Moderate persistent asthma without complication (HCC) Primary hypertension Unspecified essential hypertension Type 2 diabetes mellitus with complication, with long-term current use of insulin ([facility]) Class 3 severe obesity with serious comorbidity and body mass index (BMI) of 50.0 to 59.9 in adult, unspecified obesity type ([facility]) Tobacco user Tobacco use disorder Other headache syndrome Malignant neoplasm of cervix uteri, unspecified (HCC) Other specified disorders of adrenal gland ([facility]) Major depressive disorder, single episode, mild Major depressive disorder, single episode, mild Non-pressure chronic ulcer of other part of left lower leg with fat layer exposed ([facility]) Chronic respiratory failure, unspecified whether with hypoxia or hypercapnia ([facility]) Disorder of adrenal gland, unspecified ([facility]) Non-pressure chronic ulcer of other part of right lower leg limited to breakdown of skin ([facility]) Non-recurrent acute suppurative otitis media of left ear without spontaneous rupture of tympanic membrane Primary hypertension- Primary Unspecified essential hypertension Insomnia Insomnia, unspecified Type 2 diabetes mellitus with complication, with long-term current use of insulin ([facility]) Non-seasonal allergic rhinitis, unspecified trigger Type 2 diabetes mellitus with unspecified complications ([facility]) Anxiety and depression Gastro-esophageal reflux disease without esophagitis Edema, unspecified Edema Diabetic polyneuropathy associated with type 2 diabetes mellitus ([facility]) Chronic obstructive pulmonary disease, unspecified (HCC) Pulmonary emphysema, unspecified emphysema type ([facility]) Bilateral lower extremity edema Tobacco user Tobacco use disorder Hyperpigmentation of skin Other dyschromia Primary hypertension- Primary Unspecified essential hypertension Diabetic polyneuropathy associated with type 2 diabetes mellitus ([facility]) Pulmonary emphysema, unspecified emphysema type (HCC) Critical limb ischemia of right lower extremity ([facility]) PAD (peripheral artery disease) Unspecified peripheral vascular disease Gastroesophageal reflux disease, unspecified whether esophagitis present Bilateral lower extremity edema Venous ulcer of right leg ([facility]) Type 2 diabetes mellitus with complication, with long-term current use of insulin ([facility]) Tobacco user Tobacco use disorder Encounter for smoking cessation counseling Kidney stone Calculus of kidney Adrenal mass 1 cm to 4 cm in diameter ([facility]) Radiculopathy, lumbar region Thoracic or lumbosacral neuritis or radiculitis, unspecified Non-seasonal allergic rhinitis, unspecified trigger Type 2 diabetes mellitus with unspecified complications ([facility]) Anxiety and depression- Primary Morbid (severe) obesity due to excess calories ([facility]) Body mass index (BMI) 50.0-59.9, adult ([facility]) Malignant neoplasm of cervix uteri, [...] complication, with long-term current use of insulin ([facility]) Tobacco user Tobacco use disorder Mixed hyperlipidemia Mixed hyperlipidemia Gout, unspecified cause, unspecified chronicity, unspecified site Vitamin deficiency Unspecified vitamin deficiency Gastro-esophageal reflux disease without esophagitis Edema, unspecified Edema Hyperlipidemia, unspecified Encounter for smoking cessation counseling Venous ulcer of right leg ([facility]) Antibiotic-induced yeast infection Primary hypertension- Primary Unspecified essential hypertension Diabetic polyneuropathy associated with type 2 diabetes mellitus (HCC) Chronic diastolic heart failure (HCC) Chronic diastolic heart failure Bilateral lower extremity edema Morbid (severe) obesity due to excess calories ([facility]) Type 2 diabetes mellitus with complication, with long-term current use of insulin ([facility]) Anxiety and depression Cigarette nicotine dependence without complication Encounter for screening mammogram for malignant neoplasm of breast Insomnia Insomnia, unspecified Non-seasonal allergic rhinitis, unspecified trigger Type 2 diabetes mellitus with unspecified complications ([facility]) Vitamin D deficiency, unspecified Gastro-esophageal reflux [...] Morbid (severe) obesity due to excess calories ([facility]) Type 2 diabetes mellitus with complication, with long-term current use of insulin ([facility]) Anxiety and depression Fever, unspecified fever cause Encounter for subsequent annual wellness visit (AWV) in Medicare patient- Primary Mixed hyperlipidemia Mixed hyperlipidemia Type 2 diabetes mellitus with complication, with long-term current use of insulin ([facility]) Bilateral lower extremity edema Gastro-esophageal reflux [...] Morbid (severe) obesity due to excess calories ([facility]) Tobacco user Tobacco use disorder Encounter for smoking cessation counseling documented in this encounter [facility] noteNo assessment information [facility] Work Phone: History general Narrative - [...] History sepsis 2010 Hospitalization History SEE ABOVE [facility] Other Hospital course Narrative No data available for this section [facility] progress note No data available for this section [facility] reason for referral (narrative) , Referral to Dr. Cortés Referred by: REGLA PHIPPS, Elbert Joya [facility] reason for referral (narrative)No reason for referral information availableMer[facility] Work Phone: Advance Directives No Advanced Directives Records FoundDocuments on File Type Date Recorded Patient Merchandise Manager Expl anation Advance Directives and Living Will Power of Media Relations Coordinator Advance Directive Response Recorded Date/ Time Advance [...] CREATED AUTHOR AUTHOR'S ORGANIZ ATION 12/19/2022 [facility] DATE CREATED AUTHOR AUTHOR'S ORGANIZ ATION 06/03/2024 [place] DATE CREATED AUTHOR AUTHOR'S ORGANIZ ATION 01/30/2025 [facility] DATE CREATED AUTHOR AUTHOR'S ORGANIZ ATION 04/12/2025 [facility] DATE CREATED AUTHOR AUTHOR'S ORGANIZ ATION 04/16/2025 [facility] Care Team (unrecognized sect ion and content) Piler Relationship Specialty Start Date End Date Ty Amin MD PCP - General Family Medicine 01/05/23 Piler Relationship Specialty Start Date End Date Ty Amin MD PCP - General Family Medicine 01/05/23 Piler Relationship Specialty Start Date End Date Ty Amin MD [address] [place] [address] PCP - General Family Medicine 09/20/23 Mckayla Blas NP [address] [place] [address] PCP - [facility] 09/07/23 09/05/90 Mckayla Blas NP [address] [place] [address] Nurse Practitioner Family Medicine 09/20/23 Piler Relationship Specialty Start Date End Date Ty Amin MD [address] [place] [address] PCP - General Family Medicine 09/20/23 Mckayla Blas NP [address] [place] [address] PCP - [facility] 09/07/23 09/05/90 Mckayla Blas NP [address] [place] [address] Nurse Practitioner Family Medicine 09/20/23 Piler Relationship Specialty Start Date End Date Ty Amin MD [address] [place] [address] PCP - General Family Medicine 09/20/23 Mckayla Blas NP [address] [place] [address] [facility] 09/07/23 09/05/90 Mckayla Blas NP [address] [place] [address] Nurse Practitioner Family Medicine 09/20/23 Piler Relationship Specialty Start Date End Date Ty Amin MD [address] [place] [address] PCP - General Family Medicine 09/20/23 Mckayla Blas NP [address] [place] [address] PCP - [facility] 09/07/23 09/05/90 Mckayla Blas NP [address] [place] [address] Nurse Practitioner Family Medicine 09/20/23 Piler Relationship Specialty Start Date End Date Ty Amin MD [address] [place] [address] PCP - General Family Medicine 09/20/23 Mckayla Blas NP [address] [place] [address] PCP - [facility] 09/07/23 09/05/90 Mckayla Blas NP [address] [place] [address] Nurse Practitioner Family Medicine 09/20/23 Piler Relationship Specialty Start Date End Date Ty Amin MD [address] [place] [address] PCP - General Family Medicine 09/20/23 Mckayla Blas NP [address] [place] [address] PCP - [facility] 09/07/23 09/05/90 Mckayla Blas NP [address] [place] [address] Nurse Practitioner Family Medicine 09/20/23 Piler Relationship Specialty Start Date End Date Ty Amin MD [address] [place] [address] PCP - General Family Medicine 09/20/23 Mckayla Blas NP [address] [place] [address] PCP - [facility] 09/07/23 09/05/90 Mckayla Blas NP [address] [place] [address] Nurse Practitioner Family Medicine 09/20/23 Piler Relationship Specialty Start Date End Date Ty Amin MD [address] [place] [address] PCP - General Family Medicine 09/20/23 Mckayla Blas NP [address] [place] [address] [facility] 09/07/23 09/05/90 Mckayla Blas NP [address] [place] [address] Nurse Practitioner Family Medicine 09/20/23 Piler Relationship Specialty Start Date End Date Ty Amin MD [address] [place] [address] PCP - General Family Medicine 09/20/23 Mckayla Blas NP [address] [place] [address] PCP - [facility] 09/07/23 09/05/90 Mckayla Blas NP [address] [place] [address] Nurse Practitioner Family Medicine 09/20/23 Piler Relationship Specialty Start Date End Date Ty Amin MD [address] [place] [address] PCP - General Family Medicine 09/20/23 Mckayla Blas NP [address] [place] [address] PCP - [facility] 09/07/23 09/05/90 Mckayla Blas NP [address] [place] [address] Nurse Practitioner Family Medicine 09/20/23 Piler Relationship Specialty Start Date End Date Ty Amin MD [address] [place] [address] PCP - General Family Medicine 09/20/23 Mckayla Blas NP [address] [place] [address] [address] - [facility] 09/07/23 09/05/90 Mckayla Blas NP [address] [place] [address] Nurse Practitioner Family Medicine 09/20/23 Piler Relationship Specialty Start Date End Date Ty Amin MD [address] [place] [address] PCP - General Family Medicine 09/20/23 Mckayla Blas NP [address] [place] [address] PCP - [facility] 09/07/23 09/05/90 Mckayla Blas NP [address] [place] [address] Nurse Practitioner Family Medicine 09/20/23 Piler Relationship Specialty Start Date End Date Ty Amin MD [address] [place] [address] PCP - General Family Medicine 09/20/23 Mckayla Blas NP [address] [place] [address] [facility] 09/07/23 09/05/90 Mckayla Blas NP [address] [place] [address] Nurse Practitioner Family Medicine 09/20/23 Piler Relationship Specialty Start Date End Date Ty Amin MD [address] [place] [address] PCP - General Family Medicine 09/20/23 Mckayla Blas NP [address] [place] [address] PCP - [facility] 09/07/23 09/05/90 Mckayla Blas NP [address] [place] [address] Nurse Practitioner Family Medicine 09/20/23 Piler Relationship Specialty Start Date End Date Ty Amin MD [address] [place] [address] PCP - General Family Medicine 09/20/23 Mckayla Blas NP [address] [place] [address] PCP - [facility] 09/07/23 09/05/90 Mckayla Blas NP [address] [place] [address] Nurse Practitioner Family Medicine 09/20/23 Piler Relationship Specialty Start Date End Date Ty Amin MD [address] [place] [address] PCP - General Family Medicine 09/20/23 Mckayla Blas NP [address] [place] [address] [address] - [facility] 09/07/23 09/05/90 Mckayla Blas NP [address] [place] [address] Nurse Practitioner Family Medicine 09/20/23 Piler Relationship Specialty Start Date End Date Ty Amin MD [address] [place] [address] PCP - General Family Medicine 09/20/23 Mckayla Blas NP [address] [place] [address] PCP - [facility] 09/07/23 09/05/90 Mckayla Blas NP [address] [place] [address] Nurse Practitioner Family Medicine 09/20/23 Piler Relationship Specialty Start Date End Date Ty Amin MD [address] [place] [address] PCP - General Family Medicine 09/20/23 Mckayla Blas NP [address] [place] [address] [facility] 09/07/23 09/05/90 Mckayla Blas NP [address] [place] [address] Nurse Practitioner Family Medicine 09/20/23 Piler Relationship Specialty Start Date End Date Ty Amin MD [address] [place] [address] PCP - General Family Medicine 09/20/23 Mckayla Blas NP [address] [place] [address] [address] - [facility] 09/07/23 09/05/90 Mckayla Blas NP [address] [place] [address] Nurse Practitioner Family Medicine 09/20/23 Piler Relationship Specialty Start Date End Date Ty Amin MD [address] [place] [address] PCP - General Family Medicine 09/20/23 Mckayla Blas NP [address] [place] [address] [facility] 09/07/23 09/05/90 Mckayla Blas NP [address] [place] [address] Nurse Practitioner Family Medicine 09/20/23 Piler Relationship Specialty Start Date End Date Ty Amin MD [address] [place] [address] PCP - General Family Medicine 09/20/23 Mckayla Blas NP [address] [place] [address] Nurse Practitioner Family Medicine 09/20/23 Piler Relationship Specialty Start Date End Date Ty Amin MD [address] [place] [address] PCP - General Family Medicine 09/20/23 Mckayla Blas NP [address] [place] [address] Nurse Practitioner Family Medicine 09/20/23 Piler Relationship Specialty Start Date End Date Ty Amin MD [address] [place] [address] PCP - General Family Medicine 09/20/23 Mckayla Blas NP [address] [place] [address] Nurse Practitioner Family Medicine 09/20/23 Piler Relationship Specialty Start Date End Date Ty Amin MD [address] [place] [address] PCP - General Family Medicine 09/20/23 Mckayla Blas NP [address] [place] [address] Nurse Practitioner Family Medicine 09/20/23 Piler Relationship Specialty Start Date End Date Ty Amin MD [address] [place] [address] PCP - General Family Medicine 09/20/23 Mckayla Blas NP [address] [place] [address] Nurse Practitioner Family Medicine 09/20/23 Team Status: Active Member Role Status Dates Mckayla Blas NP-C Primary Care Provider Active Team Status: Active Member Role Status Dates Mckayla Blas NP-Faiza Primary Care Provider Active Start: March 25, [...] BE BASED ON THE PRIMARY CLINICAL RECORDS. [employer] [facility]. provides no warranty or guarantee of the accuracy or completeness of information in this document.
== END 2025-04-16 13:41 | disposition home or self-care (01) ==
LOC: WC 13:41
PROVIDERS: PCP Nurse Practitioner; Visit Provider Physician Assistant
DX: I87.311 Chronic venous hypertension (idiopathic) with ulcer of right lower extremity (principal); L97.812 Non-pressure chronic ulcer of other part of right lower leg with fat layer exposed
CPT/HCPCS: G0463

== ENCOUNTER 2025-04-20 11:00 | Outpatient (OUT) | payer MEDICARE, SELFPAY ==
--- OUTSIDE RECORDS SUMMARY | 2024-12-02 05:30 | XMS_ITS ---
Author Organization The [facility] in [place] Address [address] [place] [address] Care Team Providers Care Hand Drawer In Name Role Phone Mckayla Blas CNP Primary Care Provider Armando Limon Unavailable [phone] REASON FOR VISIT 1YEAR-COPD Encounters Encounter Location Date Provider Diagnosis Pulmonary Medicine [place] [address] [place] [address] 12/02/2024 Armando Yañez Plan Of Treatment No Information Progress Notes * Mitzi MACIAS LDOB:[birth year] (54 yo F)Acc No.[id number]:12/02/2024 UNLOCKED PROGRESS NOTE Follow Up Patient: Mitzi COX Provider: Tray Yañez DO :1970 A ge:54 Y S ex:Female Date:12/02/2024 Address:[address] [place], [place] [address] Pcp:Mckayla Blas CNP Subjective: * Chief Complaints: * 1 . 1YEAR-COPD. * Medical History: Objective: * Vitals: Assessment: Plan: * Treatment: * * Electronic signature of Radha Yañez DO on 04/20/2025 at 12:14 PM EDT Sign off status: Pending Visit Status: N /S N/C (No Show/No Charge) * Provider: Tray Yañez DO Date: 0 12/02/2024 Generated for Vanessa ocampo/Luis/eTransmitting on: 1 12:14 PM EDT
--- OUTSIDE RECORDS SUMMARY | 2025-04-06 12:01 | XMS_ITS | Continuity of Care Document ---
Author Organization [facility] Address [address] [place] [address] Phone Care Team Providers Care Survey Research Manager Name Role Phone Mckayla Blas SUPERANNUATION FUNDS MANAGER-C Primary Care Provider [phone] Price Arora DO Attending Provider Flynn Urias DPM Attending Provider Mckayla Blas SUPERANNUATION FUNDS MANAGER-C Attending Provider Care Teams Patient Care Team Team Status: Active Member Role Status Dates Mckayla Blas SUPERANNUATION FUNDS MANAGER-C Primary Care Provider Active Visit Care Team Team Status: Active Member Role Status Dates Mckayla Blas SUPERANNUATION FUNDS MANAGER-C Primary Care Provider Active Start: March 25, 2025 Price Arora DO Attending Provider Active S tart: March 25, 2025 Visit Care Team Team Status: Active Member Role Status Dates Mckayla Blas NP-C Primary Care Provider Active Start: March 26, 2025 Flynn Urias DPM Attending Provider Active Start: March 26, 2025 Patient Care Team Team Status: Inactive Member Role Status Dates Mckayla Blas SUPERANNUATION FUNDS MANAGER-C Primary Care Provider Active Start: April 06, 2025 End: April 06, 2025 Mckayla Blas NP-Faiza Attending Provider Active Start: April 06, 2025 End: April 06, 2025 Chief Complaint and Reason for Visit Chief Complaint Admit Date FollowUp April 06, 2025 3:08pm Allergies, Adverse Reactions, Alerts Allergen Type Severity Reaction Last Updated Verified Status No Known Allergies Allergy Unknown 2024 8:02am Yes Active Social History Smoking Status Status Start Date End Date Date of Observa tion Smokes tobacco daily (finding) December 13, 2017 2:42pm Observation Status Observation Response Date of Response Legal Sex Female (finding) Sex Assigned At Female [birth year] Status N April 06, 2025 Family History Relationship Condition Age at Onset Recorded Date/T isaac father Motor vehicle accident Unknown Unknown family member Unknown mother Motor vehicle accident Unknown Unknown Problems Active Problems Medical Problem Onset Date Status Other headache syndrome Unknown Active Encounter for smoking cessation counseling Unkno wn Active Candidiasis of breast Unknown Active Hyperpigmentation of skin Unknown Active RAGHU positive Unknown Active Mixed incontinence Unknown Active Adrenal mass 1 cm to 4 cm in diameter Unknown Active Encounter for subsequent [facility] wellness visit (AWV) in Medicare patient Unknown Active Critical limb ischemia of right lower extremity Unknown Active Insomnia Unknown Active DANIEL (obstructive sleep apnea) Unknown Ac tive Cellulitis of left lower extremity Unknown Active Morbid (severe) obesity due to excess calories U nknown Active shelter current use of inhaled steroid Unknown Active Unilateral primary osteoarthritis, right hip Unk nown Active 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 Unknown Active Non-pressure chronic ulcer o f other part of left lower leg limited to breakdown of skin Unknown Active Nicotine dependence, cigaret garrett, with unspecified nicotine-induced disorders Unknown Active Radiculopathy, lumbar region Unknown Act leobardo Encounter for screening mammogram for malignant neoplasm of breast Unknown Active Personal history of malignant neoplasm of cervix uteri Unknown Active Diabetic neuropathy Unknown Active Non-seasonal allergic rhinitis Unknown A ctive Vaginal yeast infection Unknown Active Gout Unknown Active Decreased functional mobility Unknown Ac tive Antibiotic-induced yeast infection Unknown Active Cardiomegaly Unknown Active Albuminuria Unknown Active Arthritis Unknown Active Vitamin deficiency Unknown Active Myelolipoma of adrenal gland Unknown Act leobardo Hyperlipidemia Unknown Active Kidney stone Unknown Active Chronic diastolic heart failure Unknown Active Pancreatitis Unknown Active Proteinuria Unknown Active Localized swelling of both lower legs Unknown Active Venous insufficiency Unknown Active Cigarette nicotine dependence Unknown Ac tive Stasis dermatitis with ulcer of right lower extremity due to peripheral venous hypertension Unknown Active Type 2 diabetes mellitus wit h complication, with long-term current use of insulin Unknown Active Chronic pain of both knees Unknown Activ e Body mass index (BMI) of 50-59.9 in adult Unknow n Active GERD without esophagitis Unknown Active PAD (peripheral artery disease) Unknown Active Mild nonproliferative diabet ic retinopathy of both eyes without macular edema associated with type 2 diabetes mellitus Unknown Active COPD (chronic obstructive pulmonary disease) Unk nown Active COPD exacerbation Unknown Active HTN (hypertension) Unknown Active Vitamin D deficiency Unknown Active Asthma Unknown Active Medications Medication Status Dose Units Route Directions Qty Days St art Date Stop Date End Date Instructions Adherence Varenicline Tartrate 1 mg tablet Active 1 MG PO Twice daily 56 2024 12:00a m Unknown Albuterol Sulfate 2.5 mg /3 mL (0.083 %) solution for nebulizatio n Active 2.5 MG INHALA TION EVERY 4-6 HOURS as needed 2024 12:00a m Unknown Ammonium Lactate 12 % lotion Active 1 APPLIC TOPICA L Daily 2024 12:00a m Unknown Cetirizine 10 mg tablet Active 10 MG PO Daily as needed 2024 12:00a m Unknown Amitriptyli ne 25 mg tablet Active 25 MG PO Daily at bedtime 2024 12:00a m Unknown Aspirin 81 mg tablet,chew able Active 1 TAB PO Daily 2024 12:00a m Unknown Diclofenac Sodium 75 mg tablet,geeta yed release (DR/EC) Active 75 MG PO Twice daily 2024 12:00a m Unknown Ergocalcife rol (Vitamin D2) 1,250 mcg (50,000 unit) capsule Active 11987 UNIT PO every week 2024 12:00a m Unknown Duloxetine 60 mg capsule,del ayed release(DR/ EC) Active 60 MG PO Twice daily 2024 12:00a m Unknown Dapaglifloz in Propanediol (Farxiga) 10 mg tablet Active 10 MG PO Daily 2024 12:00a m Unknown Furosemide 40 mg tablet Active 40 MG PO Daily 2024 12:00a m Unknown Ipratropium -Albuterol 0.5 mg-3 mg(2.5 mg base)/3 mL solution for nebulizatio n Active 3 ML INHALA TION Six times daily as needed 2024 12:00a m Unknown Lisinopril 20 mg tablet Active 20 MG PO Daily 2024 12:00a m Unknown Hydralazine 25 mg tablet Active 25 MG PO Twice daily 2024 12:00a m Unknown Omeprazole 20 mg capsule,del ayed release(DR/ EC) Active 20 MG PO Daily 2024 12:00a m Unknown Insulin Glargine (Lantus Solostar U-100 Insulin) 100 unit/mL (3 mL) insulin pen Active 58 UNIT SUBCUT Twice daily 2024 12:00a m Unknown Roflumilast 500 mcg tablet Active 500 MCG PO Daily 2024 12:00a m Unknown Simvastatin 10 mg tablet Active 10 MG PO Daily at bedtime 2024 12:00a m Unknown Baclofen 10 mg tablet Active 10 MG PO Every 8 hours as needed 2024 12:00a m Unknown Pregabalin 150 mg capsule Active 150 MG PO Daily 2024 12:00a m Unknown Pregabalin (Lyrica) 300 mg capsule Active 300 MG PO Twice daily 2024 12:00a m Unknown Tirzepatide (Mounjaro) 15 mg/0.5 mL pen injector Active 15 MG SUBCUT every week 2024 12:00a m Unknown Naloxone (Narcan) 4 mg/actuatio n spray,non-a erosol Active 4 MG INTRAN EUNICE Q2M as needed 2024 12:00a m spray 1 dose into ONE nostril; alternate nostrils w each dose until help arrives Unknown Insulin Glargine (Lantus U-100 Insulin) 100 unit/mL Solution Discont inued 50 UNIT SUBCUT Twice daily December 13, 2017 12:00a m [facility] 2024 12:53 pm Hydrocodone -Acetaminop hen (Schertz) 5-325 mg Tablet Active 1 TAB PO EVERY 4-6 HOURS as needed for Pain December 13, 2017 12:00a m Unknown Potassium Chloride (Klor-Con 10) 10 mEq Tablet Extended Release Discont inued 10 MEQ PO Twice daily December 13, 2017 12:00a m [facility] 2024 12:56 pm Simvastatin 20 mg Tablet Discont inued 20 MG PO Every evening December 13, 2017 12:00a m [facility] 2024 1:00p m Furosemide (Lasix) 20 mg Tablet Discont inued 20 MG PO Daily December 13, 2017 12:00a m [facility] 2024 12:54 pm Nortriptyli ne 50 mg Capsule Discont inued 50 MG PO Daily at bedtime December 13, 2017 12:00a m [facility] 2024 12:53 pm Insulin Lispro (Humalog Kwikpen Insulin) 100 unit/mL Insulin Pen Active 0 .ROUTE .COMPLEX December 13, 2017 12:00a m 4U <120, 8U >120 AT MEAL TIME; QID Unknown Pregabalin (Lyrica) 300 mg Capsule Discont inued 300 MG PO Twice daily December 13, 2017 12:00a m [facility] 2024 12:55 pm Naproxen 500 mg tablet Discont inued 500 MG PO Twice daily December 13, 2017 12:00a m [facility] 2024 12:53 pm administer with food or milk Hydrocodone -Acetaminop hen (Schertz) 5-325 mg tablet Discont inued 1 TAB PO Q4H 15 December 13, 2017 [facility] 2024 12:52 pm Furosemide (Lasix) 20 mg tablet Active 20 MG PO Daily as needed 2024 12:50p m Unknown Potassium Chloride (Klor-Con 10) 10 mEq tablet extended release Active 10 MEQ PO Daily 2024 12:55p m Unknown Relevant Diagnostic Tests and/or Laboratory Data Laboratory Results Test Collection Date/Time Result Date/Time Result Interpretation Reference Range Result Comment Performing Site Basophils # (Auto) March 25, 2025 5:12pm March 25, 2025 5:12pm 0.1 10 3/uL 0.0-0.1 Anion Gap March 25, 2025 5:12pm March 25, 2025 5:12pm 5.1 Urine Culture Reflexed March 25, 2025 5:16pm NO Erythrocyte Sedimentati on Rate March 26, 2025 12:12pm March 26, 2025 12:12pm 48 mm/hr Above high normal <=30 C-Reactive Protein, Quantitativ e March 26, 2025 12:12pm March 26, 2025 12:12pm 3.94 mg/dL Above high normal <=0.50 Anion Gap March 26, 2025 12:12pm March 26, 2025 12:12pm 8.7 Basophils # (Auto) March 26, 2025 12:12pm March 26, 2025 12:12pm 0.1 10 3/uL 0.0-0.1 Basophils (%) (Auto) March 25, 2025 5:12pm March 25, 2025 5:12pm 0.4 % 0.2-2.0 BUN/Creatin ine Ratio March 25, 2025 5:12pm March 25, 2025 5:12pm 16.3 Urine Other Casts March 25, 2025 5:16pm SEEN #/LPF Abnormal (applies to non-numeric results) NONE SEEN Albumin March 26, 2025 12:12pm March 26, 2025 12:12pm 2.8 g/dL Below low normal 3.4-5.0 Basophils (%) (Auto) March 26, 2025 12:12pm March 26, 2025 12:12pm 0.6 % 0.2-2.0 Eosinophils # (Auto) March 25, 2025 5:12pm March 25, 2025 5:12pm 0.3 10 3/uL 0.0-0.7 Blood Urea Nitrogen March 25, 2025 5:12pm March 25, 2025 5:12pm 14.0 mg/dL 7.0-18.0 Urine Other Crystals March 25, 2025 5:16pm None Seen #/HPF None Seen BUN/Creatin ine Ratio March 26, 2025 12:12pm March 26, 2025 12:12pm 21.7 Eosinophils # (Auto) March 26, 2025 12:12pm March 26, 2025 12:12pm 0.3 10 3/uL 0.0-0.7 Eosinophils (%) (Auto) March 25, 2025 5:12pm March 25, 2025 5:12pm 2.4 % 0.9-7.0 Calcium Level March 25, 2025 5:12pm March 25, 2025 5:12pm 9.2 mg/dL 8.5-10.1 Urine Bacteria March 25, 2025 5:16pm TRACE #/HPF Abnormal (applies to non-numeric results) NONE SEEN Blood Urea Nitrogen March 26, 2025 12:12pm March 26, 2025 12:12pm 15.0 mg/dL 7.0-18.0 Eosinophils (%) (Auto) March 26, 2025 12:12pm March 26, 2025 12:12pm 2.7 % 0.9-7.0 Hematocrit March 25, 2025 5:12pm March 25, 2025 5:12pm 56.6 % Above high normal 36.0-48.0 Chloride Level March 25, 2025 5:12pm March 25, 2025 5:12pm 106 mmol/L 98-107 Urine Bilirubin March 25, 2025 5:16pm NEGATIVE NEGATIVE Calcium Level March 26, 2025 12:12pm March 26, 2025 12:12pm 8.6 mg/dL 8.5-10.1 Hematocrit March 26, 2025 12:12pm March 26, 2025 12:12pm 52.5 % Above high normal 36.0-48.0 Hemoglobin March 25, 2025 5:12pm March 25, 2025 5:12pm 17.4 g/dL Above high normal 12.0-16.0 Carbon Dioxide Level March 25, 2025 5:12pm March 25, 2025 5:12pm 36.9 mmol/L Above high normal 21.0-32.0 Urine Occult Blood March 25, 2025 5:16pm NEGATIVE NEGATIVE Chloride Level March 26, 2025 12:12pm March 26, 2025 12:12pm 105 mmol/L 98-107 Hemoglobin March 26, 2025 12:12pm March 26, 2025 12:12pm 16.1 g/dL Above high normal 12.0-16.0 Immature Granulocyte # (Auto) March 25, 2025 5:12pm March 25, 2025 5:12pm 0.04 10 3/uL Above high normal 0.00-0.03 Creatinine March 25, 2025 5:12pm March 25, 2025 5:12pm 0.86 mg/dL 0.55-1.02 Urine Appearance March 25, 2025 5:16pm CLEAR CLEAR Carbon Dioxide Level March 26, 2025 12:12pm March 26, 2025 12:12pm 31.5 mmol/L 21.0-32.0 Immature Granulocyte # (Auto) March 26, 2025 12:12pm March 26, 2025 12:12pm 0.03 10 3/uL 0.00-0.03 Immature Granulocyte % (Auto) March 25, 2025 5:12pm March 25, 2025 5:12pm 0.3 % 0.0-0.5 Estimated GFR () March 25, 2025 5:12pm March 25, 2025 5:12pm >60 >=60 mL/min/1.7 3m 2 Urine Color March 25, 2025 5:16pm LT. YELLOW YELLOW Creatinine March 26, 2025 12:12pm March 26, 2025 12:12pm 0.69 mg/dL 0.55-1.02 Immature Granulocyte % (Auto) March 26, 2025 12:12pm March 26, 2025 12:12pm 0.3 % 0.0-0.5 Lymphocytes # (Auto) March 25, 2025 5:12pm March 25, 2025 5:12pm 3.1 10 3/uL 1.2-3.8 Estimated GFR (Non-Ysabel n [place] March 25, 2025 5:12pm March 25, 2025 5:12pm >60 >=60 mL/min/1.7 3m 2 Urine Glucose (UA) March 25, 2025 5:16pm NEGATIVE mg/dL NEGATIVE Estimated GFR () March 26, 2025 12:12pm March 26, 2025 12:12pm >60 >=60 mL/min/1.7 3m 2 Lymphocytes # (Auto) March 26, 2025 12:12pm March 26, 2025 12:12pm 2.7 10 3/uL 1.2-3.8 Lymphocytes (%) (Auto) March 25, 2025 5:12pm March 25, 2025 5:12pm 26.4 % 20.5-60.0 Glucose Level March 25, 2025 5:12pm March 25, 2025 5:12pm 164 mg/dL Above high normal 74-106 Urine Hyaline Casts March 25, 2025 5:16pm RARE Estimated GFR (Non-Ysabel n [place] March 26, 2025 12:12pm March 26, 2025 12:12pm >60 >=60 mL/min/1.7 3m 2 Lymphocytes (%) (Auto) March 26, 2025 12:12pm March 26, 2025 12:12pm 27.2 % 20.5-60.0 Mean Corpuscular Hemoglobin March 25, 2025 5:12pm March 25, 2025 5:12pm 27.5 pg 26.7-34.0 Potassium Level March 25, 2025 5:12pm March 25, 2025 5:12pm 4.0 mmol/L 3.5-5.1 Urine Ketones March 25, 2025 5:16pm NEGATIVE mg/dL NEGATIVE Glucose Level March 26, 2025 12:12pm March 26, 2025 12:12pm 147 mg/dL Above high normal 74-106 Mean Corpuscular Hemoglobin March 26, 2025 12:12pm March 26, 2025 12:12pm 27.2 pg 26.7-34.0 Mean Corpuscular Hemoglobin Concent March 25, 2025 5:12pm March 25, 2025 5:12pm 30.7 g/dL 29.9-35.2 Sodium Level March 25, 2025 5:12pm March 25, 2025 5:12pm 144 mmol/L 136-145 Urine Leukocyte Esterase March 25, 2025 5:16pm NEGATIVE NEGATIVE Potassium Level March 26, 2025 12:12pm March 26, 2025 12:12pm 4.2 mmol/L 3.5-5.1 Mean Corpuscular Hemoglobin Concent March 26, 2025 12:12pm March 26, 2025 12:12pm 30.7 g/dL 29.9-35.2 Mean Corpuscular Volume March 25, 2025 5:12pm March 25, 2025 5:12pm 89.4 fL 81.0-99.0 Urine Mucus March 25, 2025 5:16pm TRACE Abnormal (applies to non-numeric results) NONE SEEN Sodium Level March 26, 2025 12:12pm March 26, 2025 12:12pm 141 mmol/L 136-145 Mean Corpuscular Volume March 26, 2025 12:12pm March 26, 2025 12:12pm 88.7 fL 81.0-99.0 Monocytes # (Auto) March 25, 2025 5:12pm March 25, 2025 5:12pm 0.6 10 3/uL 0.3-0.8 Urine Nitrite March 25, 2025 5:16pm NEGATIVE NEGATIVE Phosphorus Level March 26, 2025 12:12pm March 26, 2025 12:12pm 3.5 mg/dL 2.6-4.7 Monocytes # (Auto) March 26, 2025 12:12pm March 26, 2025 12:12pm 0.5 10 3/uL 0.3-0.8 Monocytes (%) (Auto) March 25, 2025 5:12pm March 25, 2025 5:12pm 5.2 % 1.7-12.0 Urine pH March 25, 2025 5:16pm 8.0 5.0-9.0 Monocytes (%) (Auto) March 26, 2025 12:12pm March 26, 2025 12:12pm 5.2 % 1.7-12.0 Mean Platelet Volume March 25, 2025 5:12pm March 25, 2025 5:12pm 12.4 fL 9.5-13.5 Urine Protein March 25, 2025 5:16pm 100 mg/dL Abnormal (applies to non-numeric results) NEG/TRACE Mean Platelet Volume March 26, 2025 12:12pm March 26, 2025 12:12pm 12.8 fL 9.5-13.5 Neutrophils # (Auto) March 25, 2025 5:12pm March 25, 2025 5:12pm 7.7 10 3/uL Above high normal 1.4-6.5 Urine RBC March 25, 2025 5:16pm 0-2 #/HPF 0-2 Neutrophils # (Auto) March 26, 2025 12:12pm March 26, 2025 12:12pm 6.4 10 3/uL 1.4-6.5 Neutrophils (%) (Auto) March 25, 2025 5:12pm March 25, 2025 5:12pm 65.3 % 43.0-75.0 Urine Specific [place] March 25, 2025 5:16pm 1.020 1.005-1.02 5 Neutrophils (%) (Auto) March 26, 2025 12:12pm March 26, 2025 12:12pm 64.0 % 43.0-75.0 Platelet Count March 25, 2025 5:12pm March 25, 2025 5:12pm 160 10 3/uL 150-450 Urine Squamous Epithelial Cells March 25, 2025 5:16pm FEW #/LPF Abnormal (applies to non-numeric results) NONE/RARE Platelet Count March 26, 2025 12:12pm March 26, 2025 12:12pm 146 10 3/uL Below low normal 150-450 Red Blood Count March 25, 2025 5:12pm March 25, 2025 5:12pm 6.33 10 6/uL Above high normal 4.20-5.40 Urine Urobilinoge n March 25, 2025 5:16pm 1.0 EU/dL 0.2-1.0 Red Blood Count March 26, 2025 12:12pm March 26, 2025 12:12pm 5.92 10 6/uL Above high normal 4.20-5.40 Red Cell Distributio n Width March 25, 2025 5:12pm March 25, 2025 5:12pm 16.4 % Above high normal 11.0-15.0 Urine WBC March 25, 2025 5:16pm 0-2 #/HPF Abnormal (applies to non-numeric results) NONE SEEN Red Cell Distributio n Width March 26, 2025 12:12pm March 26, 2025 12:12pm 16.4 % Above high normal 11.0-15.0 Corrected White Blood Count March 25, 2025 5:12pm March 25, 2025 5:12pm 11.8 10 3/uL Above high normal 4.0-11.0 Corrected White Blood Count March 26, 2025 12:12pm March 26, 2025 12:12pm 10.0 10 3/uL 4.0-11.0 Vital Signs Vital Reading Result Reference Range Collection Date/Time Body Temperature 98.1 [degF] 97.6-99.0 March 102024 3:37pm Heart Rate 81 /min 60-100 April 06, 2025 3:37pm Respiratory rate 20 /min 12-24 March 102024 3:37pm Oxygen saturation by Pulse oximetry 92 % 95-100 April 06, 2025 3:37pm BP Systolic 146 mm[Hg] 100-140 April 06, 2025 3:37pm BP Diastolic 84 mm[Hg] 60-100 April 06, 2025 3:37pm Advance Directives Advance Directive Response Recorded Date/ Time Advance Directives No December 13 3:20pm Insurance Providers Guarantor Mitzi L Gilberto Address [address] [address] Contact Info. Home Phone: Payer Policy Id Subscriber's Name Subscriber Id Effective Date Expiration Date Medicaid [id number] Mitzi Macias [id number] [facility] Medicaid [id number] Mitzi Macias [id number] Medicare [id number] Mitzi Macias [id number] [facility] [employer] [id number] Mitzi L Macias [id number] Regular Auto/Liability [id number] Mitzi L Macias [id number] [facility] [id number] Mitzi Lopezels [id number] Encounters Encounter Location(s) Arrival/Admit Date Discharge/Depart Date Provider(s) Non-patient / Non-visit -[facility] March 25, 2025 5:16pm Braulio Steele DO Non-patient / Non-visit -[facility] March 26, 2025 12:12pm Flynn Urias DPM Departed Physician/Prov ider Office Visit -[facility] Family Medicine Kuldip April 06, 2025 3:08pm April 06, 2025 4:00pm MAURY Arevalo
--- OUTSIDE RECORDS SUMMARY | 2025-04-20 12:13 | XMS_ITS | Encounter Summary ---
Author Organization [facility] Address [address] [place] [address] Care Team Providers Care Manufacturing Worker Name Role Phone Ty Amin MD Primary Care Provider [phone] Mckayla Blas SPEECH LANGUAGE SPECIALIST Unavailable [phone] Mckayla Blas NP Unavailable [phone] Encounter Details Date Type Department Care Team (Late st Contact Info) Description 01/07/2025 Abstract [facility] [address] [place] [address] Mckayla Blas NP [address] [facility] [address] [address] Social History Tobacco Use Types Packs/Day Years [...] No 07/10/2023 Social Connection and Isolation Panel Answer Date Recorded In a typical week, how many times do you talk on the phone with family, friends, or neighbors? More than three times a week 08/26/2024 How often do you get togethe r with friends or relatives? Once a week 08/26/2024 How often do you attend chur or gnosticist services? More than 4 times per year [...] Recorded Patient Health Questionnaire-2 Score 1 01/17/2024 [facility] of Occupat ional Health - Occupational Stress [...] any time in the past 12 m [facility], were you homeless or [...] [facility] [address] [place] [address] Rain Souza MD [address] [place] [address] documented as of this encounter Visit Diagnoses Not on filedocumented in this encounter Additional Health Concerns Assessment Noted Time PHQ-9 Depression Total Score: 3 01/17/20 24 10:08 AM EDT documented as of this encounter Care Teams Manufacturing Worker Relationship Specialty Start Date End Date Ty Amin MD PCP - General Family Medicine 09/20/23 Mckayla Blas NP [address] [place] [address] PCP - [facility] 09/07/23 01/11/25 Mckayla Blas NP Nurse Practitioner Family Medicine 09/20/23 documented as of this encounter
--- OUTSIDE RECORDS SUMMARY | 2025-04-20 12:13 | XMS_ITS | Encounter Summary ---
Author Organization [facility] Address [address] [place] [address] Care Team Providers Care Tip Stitcher Name Role Phone Ty Amin MD Primary Care Provider [phone] Mckayla Blas NP Unavailable [phone] Mckayla Blas NP Unavailable [phone] Encounter Details Date Type Department Care [...] any clubs o r organizations such as evangelical groups, unions, fraternal [...] [facility] [address] [place] [address] Rain Souza MD [address] [place] [address] documented as of this encounter Procedures Procedure Name Priority Date/Time Associated Diagnosis Comments CT ABDOMEN PELVIS W CON 05/12/2024 2:16 PM EST documented in this encounter Results * CT ABDOMEN PELVIS W CON (05/12/2024 2:16 PM EST) Anatomical Region Laterality Modality Other 05/12/2024 2:16 PM EST Narrative 05/12/2024 2:19 PM EST The [address] [address] [address] Scan Report Signed Patient: MITZI MACIAS MR#: [id number] : 1970 Acct:[id number] Age/Sex: 53 / F ADM Date: 05/12/24 Loc: CT Attending Dr: Sarah MAYERS Ordering Physician: Sarah Vega Date of Service: 05/12/24 Procedure(s): CT abdomen pelvis w con Accession Number(s): [id number] cc: Mckayla Blas NP [address] [address] Patient Name: MITZI MACIAS MRN: [id number] date: 1970 Sex: F Assigned Patient Location: CT Current Patient Location: Accession/Order Number: [id number] Exam Date: 05/12/2024 11:15 Report Date: 05/12/2024 [...] Signed By: 05/12/24 1419 DD/ 1416 TD/TT: Strategic Partnership Representative: Procedure Note Radiology, Radiologist, - 05/12/2024 [place] [address] CT Scan Report Signed Patient: MITZI MACIAS LMR#: [id number] : 1970Acct:[id number] Age/Sex: 53 / FADM Date: 05/12/24 Loc: CT Attending Dr: Sarah MAYERS Ordering Physician: Sarah Vega Date of Service: 05/12/24 Procedure(s): CT abdomen pelvis w con Accession Number(s): [id number] cc: Mckayla Blas NP The [place] [address] Patient Name: MITZI MACIAS MRN: [id number] date: 1970 Sex: F Assigned Patient Location: CT Current Patient Location: Accession/Order Number: [id number] Exam Date: 05/12/2024 11:15 Report Date: 05/12/2024 [...] M.D. Signed By:05/12/24 1419 DD/ 1416 TD/TT: Strategic Partnership Representative: us Generic External Data Provider [facility] Final Result documented in this encounter Visit Diagnoses Not on filedocumented in this encounter Additional Health Concerns Assessment Noted Time PHQ-9 Depression Total Score: 3 01/17/20 24 10:08 AM EDT documented as of this encounter Care Teams Tip Stitcher Relationship Specialty Start Date End Date Ty Amin MD PCP - General Family Medicine 09/20/23 Mckayla Blas NP [address] [place] [address] PCP - [facility] 09/07/23 01/11/25 Mckayla Blas NP Nurse Practitioner Family Medicine 09/20/23 documented as of this encounter
--- OUTSIDE RECORDS SUMMARY | 2025-04-20 12:13 | XMS_ITS | Encounter Summary ---
Author Organization [facility] Address [id number] [address] [place] [address] Care Team Providers Care Account Auditor Name Role Phone JuanjoseMckayla carcamo Krystal PEREZN-VP REVENUE CYCLE Primary Care Provider Encounter Details Date Type Department Care Team (Late st Contact Info) Description 05/31/2020 Orders Only [facility] [address] [place] [address] External, Scanning Provider Social History Tobacco Use [...] on filedocumented in this encounter Care Teams Account Auditor Relationship Specialty Start Date End Date Mckayla Blas, MANUFACTURING LEAD-VP REVENUE CYCLE [address] [place] [address] PCP - General Nurse Practitioner 09/25/18 documented as of this encounter
--- OUTSIDE RECORDS SUMMARY | 2025-04-20 12:13 | XMS_ITS | Clinical Summary ---
Author Organization [facility] Address [id number] [address] [place] [address] Care Team Providers Care Clerical Aide Teacher Name Role Phone Wan Mckayla Krystal PEREZN-ENGINE REPAIRER Primary Care Provider Allergies No known [...] Medical Devices Not on file Insurance [place]ICAID [place] [employer] MEDICARE Care Teams Clerical Aide Teacher Relationship Specialty Start Date End Date Mckayla Blas, STRIP FEEDER-ENGINE REPAIRER [address] [place] [address] PCP - General Nurse Practitioner 09/25/18
--- OUTSIDE RECORDS SUMMARY | 2025-04-20 12:13 | XMS_ITS | Encounter Summary ---
Author Organization [facility] Address [address] [facility] [place] [address] Care Team Providers Care Sheriff'S Detective Name Role Phone Ty Amin MD Primary Care Provider [phone] Mckayla Blas CLASSROOM MONITOR Unavailable [phone] Encounter Details Date Type Department Care Team (Late st Contact Info) Description 02/18/2025 Abstract [facility] [address] [place] [address] Mckayla Blas NP [address] [place] [address] Social History Tobacco Use Types Packs/Day Years [...] week 08/26/2024 How often do you attend [facility] or worship services? More than 4 [...] Patient Health Questionnaire-2 Score 0 01/26/2025 [facility] of Occupat ional Health [...] time in the past [address] [facility], were you homeless or living in [...] [facility] [address] [place] [address] Rain Souza MD [address] [place] [address] documented as of this encounter Visit Diagnoses Not on filedocumented in this encounter Additional Health Concerns Assessment Noted Time PHQ-9 Depression Total Score: 3 01/17/20 24 10:08 AM EDT documented as of this encounter Care Teams Sheriff'S Detective Relationship Specialty Start Date End Date Ty Amin MD PCP - General Family Medicine 09/20/23 Mckayla Blas NP Nurse Practitioner Family Medicine 09/20/23 documented as of this encounter
--- OUTSIDE RECORDS SUMMARY | 2025-04-20 12:13 | XMS_ITS | Encounter Summary ---
Author Organization [facility] Address [address] [place] [address] Care Team Providers Care Dental Equipment Installer And Servicer Name Role Phone Ty Amin MD Primary Care Provider [phone] Mckayla Blas AUTOMOTIVE INTERNET SALES MANAGER Unavailable [phone] Mckayla Blas NP Unavailable [phone] Encounter Details Date Type Department Care Team (Late st Contact Info) Description 07/14/2024 Orders Only [facility] [address] [place] [address] Mckayla Blas NP [address] [facility] [place] [address] Social History Tobacco Use Types Packs/Day Years [...] Recorded Patient Health Questionnaire-2 Score 1 01/17/2024 [facility] of Occupat ional Health [...] AM EST Office Visit [facility] [address] [place] [address] Rain Souza MD [address] [place] [address] documented as of this encounter Procedures Procedure [...] documented as of this encounter Care Teams Dental Equipment Installer And Servicer Relationship Specialty Start Date End Date Ty Amin MD PCP - General Family Medicine 09/20/23 Mckayla Blas NP [address] [place] [address] PCP - [facility] 09/07/23 01/11/25 Mckayla Blas NP Nurse Practitioner Family Medicine 09/20/23 documented as of this encounter
--- OUTSIDE RECORDS SUMMARY | 2025-04-20 12:13 | XMS_ITS | Encounter Summary ---
Author Organization [facility] Address [address] [place] [address] Care Team Providers Care Mortgage Loan Reviewer Name Role Phone Ty Amin MD Primary Care Provider [phone] Mckayla Blas ROLL UP OPERATOR Unavailable [phone] Mckayla Blas NP Unavailable [phone] Encounter Details Date Type Department Care Team (Late st Contact Info) Description 04/14/2024 Orders Only [facility] [address] [place] [address] Mckayla Blas NP [address] [facility] [place] [address] Social History Tobacco Use Types Packs/Day Years [...] you attend chur ch or evangelical services? 1 to 4 times per year [...] Recorded Patient Health Questionnaire-2 Score 1 01/17/2024 [facility] of Occupat [...] Office Visit [facility] [address] [place] [address] Rain Souza MD [address] [place] [address] documented as of this encounter Procedures Procedure Name Priority Date/Time Associated Diagnosis Comments XR ANKLE 3+ VIEWS RIGHT Routine 04/14/2024 2:57 PM EDT XR ANKLE 3+ VIEWS RIGHT Routine 04/14/2024 11:20 AM EDT documented in this encounter Results * XR ankle 3+ views right (04/14/2024 2:57 PM EDT) Anatomical Region Laterality Modality Lower Extremities, Ankle Right Radiogr aphic Imaging us Mckayla Bals ROLL UP OPERATOR IMG XR PROCEDURES Final Result * XR ankle 3+ views right (04/14/2024 11:20 AM EDT) Anatomical Region Laterality Modality Lower Extremities, Ankle Right Radiogr aphic Imaging us Mckayla Blas NP IMG XR PROCEDURES Final Result documented in this encounter Visit Diagnoses Not on filedocumented in this encounter Additional Health Concerns Assessment Noted Time PHQ-9 Depression Total Score: 3 01/17/20 10:08 AM EDT documented as of this encounter Care Teams Mortgage Loan Reviewer Relationship Specialty Start Date End Date Ty Amin MD PCP - General Family Medicine 09/20/23 Mckayla Blas NP [address] [place] [address] PCP - [facility] 09/07/23 01/11/25 Mckayla Blas NP Nurse Practitioner Family Medicine 09/20/23 documented as of this encounter
--- OUTSIDE RECORDS SUMMARY | 2025-04-20 12:13 | XMS_ITS | Encounter Summary ---
Author Organization [facility] Address [address] [place] [address] Care Team Providers Care Program/Music Director Name Role Phone Ty Amin MD Primary Care Provider [phone] Mckayla Blas NP Unavailable [phone] Mckayla Blas NP Unavailable [phone] Encounter Details Date Type Department Care [...] [facility] [address] [place] [address] Rain Souza MD [address] [place] [address] documented as of this encounter Procedures Procedure Name Priority Date/Time Associated Diagnosis Comments SEGMENTAL BLOOD PRESSURE 04/24/2024 11:20 AM EDT documented in this encounter Results * SEGMENTAL BLOOD PRESSURE (04/24/2024 11:20 AM EDT) Anatomical Region Laterality Modality Radiographic Kalani ging 04/24/2024 11:2 0 AM EDT Narrative 04/24/2024 11:23 AM EDT The [address] [address] Vein Report Signed Patient: MITZI MACIAS MR#: [id number] : 1970 Acct:[id number] Age/Sex: 53 / F ADM Date: 04/24/24 Loc: VC Attending Dr: Rafael Gongora Ordering Physician: Rafael Gongora Date of Service: 04/24/24 Procedure(s): VC SEGMENTAL PRESSURES Accession Number(s): [id number] cc: Mckayla Blas NP; Rafael Gongora The [place] [id number] Patient Name: MITZI MACIAS MRN: [id number] date: 1970 Sex: F Assigned Patient Location: VC Current Patient Location: VC Accession/Order Number: [id number] Exam Date: 04/24/2024 10:25 Report Date: 04/24/2024 11:20 At the request of: RAFAEL GONGORA Procedure: VC SEGMENTAL PRESSURES EXAM: VC SEGMENTAL PRESSURES HISTORY: R09.89 COMPARISON: None. FINDINGS: Segmental pressures presented as follows (right, left) in mmHg. Brachial: 169, 166 Upper thigh: Not obtained Lower thigh: 129, 119 Calf: 124, 106 DPA: 108, 105 ASSAYER: 100, 91 1st Toe: 124, 142 ISABELLE: [...] Signed By: 04/24/24 1123 DD/ 1120 TD/TT: Marketing Services Vice President: Procedure Note Radiology, Radiologist, MD - 04/24/2024 [place] [address] Vein Report Signed Patient: MITZI MACIAS LMR#: [id number] : 1970Acct:[id number] Age/Sex: 53 / FADM Date: 04/24/24 Loc: VC Attending Dr: Rafael Gongora Ordering Physician: Rafael Gongora Date of Service: 04/24/24 Procedure(s): VC SEGMENTAL PRESSURES Accession Number(s): [id number] cc: Mckayla Blas NP; Rafael Gongora [place] [id number] Patient Name: MITZI MACIAS MRN: [id number] date: 1970 Sex: F Assigned Patient Location: VC Current Patient Location: VC Accession/Order Number: [id number] Exam Date: 04/24/2024 10:25 Report Date: 04/24/2024 11:20 At the request of: RAFAEL GONGORA Procedure: VC SEGMENTAL PRESSURES EXAM: VC SEGMENTAL PRESSURES HISTORY: R09.89 COMPARISON: None. FINDINGS: Segmental pressures presented as follows (right, left) in mmHg. Brachial: 169, 166 Upper thigh: Not obtained Lower thigh: 129, 119 Calf: 124, 106 DPA: 108, 105 ASSAYER: 100, 91 1st Toe: 124, 142 ISABELLE: [...] M.D. Signed By:04/24/24 1123 DD/ 1120 TD/TT: Marketing Services Vice President: us Generic External Data Provider IMG XR PROCEDURES Final Result documented in this encounter Visit Diagnoses Not on filedocumented in this encounter Additional Health Concerns Assessment Noted Time PHQ-9 Depression Total Score: 3 01/17/20 24 10:08 AM EDT documented as of this encounter Care Teams Program/Music Director Relationship Specialty Start Date End Date Ty Amin MD PCP - General Family Medicine 09/20/23 Mckayla Blas NP [address] [place] [address] PCP - [facility] 09/07/23 01/11/25 Mckayla Blas NP Nurse Practitioner Family Medicine 09/20/23 documented as of this encounter
--- OUTSIDE RECORDS SUMMARY | 2025-04-20 12:13 | XMS_ITS | Encounter Summary ---
Author Organization [facility] Address [address] [place] [address] Care Team Providers Care Ice Cream Maker Name Role Phone Ty Amin MD Primary Care Provider [phone] Ty Amin MD Primary Care Provider [phone] Mckayla Blas GLOBAL MARKETING COORDINATOR Unavailable [phone] Mckayla Blas GLOBAL MARKETING COORDINATOR Unavailable [phone] Encounter Details Date Type Department Care Team (Late st Contact Info) Description 09/12/2023 Orders Only [facility] [address] [place] [address] Social History Tobacco Use Types Packs/Day Years [...] Recorded Patient Health Questionnaire-2 Score 2 07/10/2023 [facility] of Occupat ional Health [...] [facility] [address] [place] [address] Rain Souza MD [address] [place] [address] documented as of this encounter Procedures Procedure [...] on filedocumented in this encounter Care Teams Ice Cream Maker Relationship Specialty Start Date End Date Ty Amin MD PCP - General Family Medicine 01/05/23 09/19/23 Ty Amin MD PCP - General Family Medicine 09/20/23 Mckayla Blas NP [address] [place] [address] PCP - [facility] 09/07/23 01/11/25 Mckayla Blas NP Nurse Practitioner Family Medicine 09/20/23 documented as of this encounter
--- OUTSIDE RECORDS SUMMARY | 2025-04-20 12:13 | XMS_ITS | Encounter Summary ---
Author Organization [employer] Address [id number] [address] [place] [address] Care Team Providers Care Triage Rn Name Role Phone JuanjoseMckayla carcamo Krystal DIRECTOR REVENUE-RECOATER Primary Care Provider Encounter Details Date Type Department Care Team (Late st Contact Info) Description 05/31/2020 Orders Only [facility] [address] [place] [address] External, Scanning Provider Social History Tobacco Use [...] ORDERABLES Final Result Performing Organization Address [facility] Co de Phone Number MANUALLY [...] ORDERABLES Final Result Performing Organization Address [facility] Co de Phone Number MANUALLY TRANSCRIBED RESULTS * Pulmonary function test (10/24/2018) us Scanning Provider External PFT ORDERABLES Final Result Performing Organization Address [facility] Co de Phone Number MANUALLY TRANSCRIBED RESULTS * Nuc stress Lexiscan/Exercise (12/12/2016) Anatomical Region Laterality Modality Chest N/A Nuclear Medicine us Scanning Provider External CV STRESS ORDERABLES Final Result documented in this encounter Visit Diagnoses Not on filedocumented in this encounter Care Teams Triage Rn Relationship Specialty Start Date End Date Mckayla Blas, DIRECTOR REVENUE-RECOATER [address] [place] [address] PCP - General Nurse Practitioner 09/25/18 documented as of this encounter
--- OUTSIDE RECORDS SUMMARY | 2025-04-20 12:13 | XMS_ITS | Encounter Summary ---
Author Organization [facility] Address [address] [place] [address] Care Team Providers Care Editing Clerk Name Role Phone Ty Amin MD Primary Care Provider [phone] Ty Amin MD Primary Care Provider [phone] Mckayla Blas TRAIN INSPECTOR Unavailable [phone] Mckayla Blas TRAIN INSPECTOR Unavailable [phone] Encounter Details Date Type Department Care Team (Late st Contact Info) Description 08/31/2023 Clinisync Result Encounter [facility] External Department Unsolicited Andra Alcala PA [address] [place] [address] Dr [address] [place], [place] [id number] Social History Tobacco Use Types Packs/Day Years [...] Recorded Patient Health Questionnaire-2 Score 2 07/10/2023 [facility] - [facility]ational Stress Questionnaire Answer [...] [facility] [address] [place] [address] Rain Souza MD [address] [place] [address] documented as of this encounter Procedures Procedure [...] ORDERAB LES Final Result Performing Organization Address [facility]/ZIP Co de Phone Number * BLOOD CULTURE 1 (09/10/2023 2:05 PM EST) BLOOD CULTURE 1 Blood Culture 1 NG5D NO GROWTH AT 5 DAYS.^NO GROWTH AT 5 DAYS. TB 09/10/2023 2:05 PM EST 09/10/2023 2:28 PM EST Narrative CLINISY[facility] - 09/16/2023 1:07 PM EDT us Generic External Data Provider LAB BLOOD ORDERAB LES Final Result Performing Organization Address [facility] Co de Phone Number * ECG 12-LEAD (08/31/2023 6:08 PM EST) Anatomical Region Laterality Modality Other 08/31/2023 6:08 PM EST Narrative 09/02/2023 7:32 [place] [address] Electrocardiograph Report Signed Patient: MITZI MACIAS MR#: [id number] : 1970 Acct:[id number] Age/Sex: 53 / F ADM Date: 08/31/23 Loc: [place] 214-[address]: Jacqueline Becerra D.O. 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 Signed By: 09/02/23731 DD/ 180 TD/TT: Sap Payroll Consultant: Procedure Note Radiology, Radiologist, - 09/02/2023 [place] [address] Electrocardiograph Report Signed Patient: MITZI MACIAS LMR#: [id number] : 1970Acct:[id number] Age/Sex: 53 / FADM Date: 08/31/23 Loc: [place] 214-[address]: Jacqueline Becerra D.O. 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 Signed By:09/02/23731 DD/ 07 TD/TT: Sap Payroll Consultant: Andra [facility] Final Result documented in this encounter Visit Diagnoses Not on filedocumented in this encounter Care Teams Editing Clerk Relationship Specialty Start Date End Date Ty Amin MD PCP - General Family Medicine 01/05/23 09/19/23 Ty Amin MD PCP - General Family Medicine 09/20/23 Mckayla Blas NP [address] [place] [address] PCP - [facility] 09/07/23 01/11/25 Mckayla Blas NP Nurse Practitioner Family Medicine 09/20/23 documented as of this encounter
--- OUTSIDE RECORDS SUMMARY | 2025-04-20 12:13 | XMS_ITS | Encounter Summary ---
Author Organization [facility] Address [address] [place] [address] Care Team Providers Care Primer Press Operator Name Role Phone Ty Amin MD Primary Care Provider [phone] Mckayla Blas NP Unavailable [phone] Mckayla Blas NP Unavailable [phone] Encounter Details Date Type Department Care Team (Late st Contact Info) Description 05/12/2024 Orders Only [facility] [address] [place] [address] Angela Cochran NP [address] [place] [address] Social History Tobacco Use [...] Recorded Patient Health Questionnaire-2 Score 1 01/17/2024 [facility] - Occupational Stress Questionnaire Answer [...] [facility] [address] [place] [address] Rain Souza MD [address] [place] [address] documented as of this encounter Procedures Procedure [...] documented as of this encounter Care Teams Primer Press Operator Relationship Specialty Start Date End Date Ty Amin MD PCP - General Family Medicine 09/20/23 Mckayla Blas NP [address] [place] [address] PCP - [facility] 09/07/23 01/11/25 Mckayla Blas NP Nurse Practitioner Family Medicine 09/20/23 documented as of this encounter
--- OUTSIDE RECORDS SUMMARY | 2025-04-20 12:13 | XMS_ITS | Encounter Summary ---
Author Organization [facility] Address [address] [place] [address] Care Team Providers Care Physical Therapy Asst Name Role Phone Ty Amin MD Primary Care Provider [phone] Mckayla Blas BOTTLE SELECTOR Unavailable [phone] Mckayla Blas NP Unavailable [phone] Encounter Details Date Type Department Care Team (Late st Contact Info) Description 01/07/2025 Abstract [facility] [address] [place] [address] Mckayla Blas NP [address] [facility] [place] [address] Social History Tobacco Use Types Packs/Day Years [...] How often do you attend chur or hinduism services? More than 4 times per year [...] Recorded Patient Health Questionnaire-2 Score 1 01/17/2024 [facility] [place] of Occupat ional Health - Occupational Stress [...] [facility] [address] [place] [address] Rain Souza MD [address] [place] [address] documented as of this encounter Visit Diagnoses Not on filedocumented in this encounter Additional Health Concerns Assessment Noted Time PHQ-9 Depression Total Score: 3 01/17/20 24 10:08 AM EDT documented as of this encounter Care Teams Physical Therapy Asst Relationship Specialty Start Date End Date Ty Amin MD PCP - General Family Medicine 09/20/23 Mckayla Blas NP [address] [place] [address] PCP - [facility] 09/07/23 01/11/25 Mckayla Blas NP Nurse Practitioner Family Medicine 09/20/23 documented as of this encounter
--- OUTSIDE RECORDS SUMMARY | 2025-04-20 12:13 | XMS_ITS | Encounter Summary ---
Author Organization [facility] Address [id number] [address] [place] [address] Care Team Providers Care General Road Production Manager Name Role Phone JuanjoseMckayla carcamo Krystal SINGER SONGWRITER-BUILDING CUSTODIAN Primary Care Provider Encounter Details Date Type Department Care Team (Late st Contact Info) Description 06/11/2020 Orders Only [facility] [address] [place] [address] External, Scanning Provider Social History Tobacco Use [...] on filedocumented in this encounter Care Teams General Road Production Manager Relationship Specialty Start Date End Date Mckayla Blas, SINGER SONGWRITER-BUILDING CUSTODIAN [address] [place] [place] [address] PCP - General Nurse Practitioner 09/25/18 documented as of this encounter
--- OUTSIDE RECORDS SUMMARY | 2025-04-20 12:13 | XMS_ITS | Encounter Summary ---
Author Organization [facility] Address [id number] [address] [place] [address] Care Team Providers Care Developmental Behavioral Physician Name Role Phone Mckayla Blas APRN-DOUBLE BACKER Primary Care Provider Encounter Details Date Type Department Care Team (Late st Contact Info) Description 05/03/2020 [facility]phone [facility] [address] [place] [address] Tramaine Romero DO [address] [place] [address], [address] [id number] Social History Tobacco Use Types Packs/Day Years [...] on filedocumented in this encounter Care Teams Developmental Behavioral Physician Relationship Specialty Start Date End Date Mckayla Blas [place] [address] PCP - General Nurse Practitioner 09/25/18 documented as of this encounter
--- OUTSIDE RECORDS SUMMARY | 2025-04-20 12:13 | XMS_ITS | Encounter Summary ---
Author Organization [facility] Address [address] [place] [address] Care Team Providers Care Laborer Golf Course Name Role Phone Ty Amin MD Primary Care Provider [phone] Mckayla Blas NP Unavailable [phone] Mckayla Blas NP Unavailable [phone] Encounter Details Date Type Department Care [...] [facility] [address] [place] [address] Rain Souza MD [address] [place] [address] documented as of this encounter Procedures Procedure Name Priority Date/Time Associated Diagnosis Comments MR LUMBAR SPINE WO CON 05/12/2024 2:41 PM EST documented in this encounter Results * MR LUMBAR SPINE WO CON (05/12/2024 2:41 PM EST) Anatomical Region Laterality Modality Other 05/12/2024 2:41 PM EST Narrative 05/12/2024 2:43 PM EST The [address] [address] Magnetic Resonance Report Signed Patient: MITZI MACIAS MR#: [id number] : 1970 Acct:[id number] Age/Sex: 53 / F ADM Date: 05/12/24 Loc: MRI Attending Dr: Angela Chin NP Ordering Physician: Angela Chin NP Date of Service: 05/12/24 Procedure(s): MR lumbar spine wo con Accession Number(s): [id number] cc: Mckayla Blas NP; Angela Chin NP [address] [address] Patient Name: MITZI MACIAS MRN: [facility]:[id number] date: 1970 Sex: F Assigned Patient Location: MRI Current Patient Location: CT Accession/Order Number: [id number] Exam Date: 05/12/2024 09:21 Report Date: 05/12/2024 14:41 At the request of: ANGELA HCIN Procedure: MR lumbar spine wo con EXAMINATION: [...] Signed By: 05/12/24 1443 DD/ 40 TD/TT: Director Market Intelligence: Procedure Note Radiology, Radiologist, MD - 05/12/2024 [place] [address] Magnetic Resonance Report Signed Patient: MITZI MACIAS LMR#: [id number] : 1970Acct:[id number] Age/Sex: 53 / FADM Date: 05/12/24 Loc: MRI Attending Dr: Angela Chin NP Ordering Physician: Angela Chin NP Date of Service: 05/12/24 Procedure(s): MR lumbar spine wo con Accession Number(s): [id number] cc: Mckayla Blas INTERNSHIP COORDINATOR; Angela Chin NP The [address] [address] Patient Name: MITZI MACIAS MRN: [id number] date: 1970 Sex: F Assigned Patient Location: MRI Current Patient Location: CT Accession/Order Number: [id number] Exam Date: 05/12/2024 09:21 Report Date: 05/12/2024 [...] M.D. Signed By:05/12/24 1443 DD/ 1441 TD/TT: Director Market Intelligence: Generic External Data Provider [facility] Final Result documented in this encounter Visit Diagnoses Not on filedocumented in this encounter Additional Health Concerns Assessment Noted Time PHQ-9 Depression Total Score: 3 01/17/20 24 10:08 AM EDT documented as of this encounter Care Teams Laborer Golf Course Relationship Specialty Start Date End Date Ty Amin MD PCP - General Family Medicine 09/20/23 Mckayla Blas NP [address] [place] [address] PCP - [facility] 09/07/23 01/11/25 Mckayla Blas NP Nurse Practitioner Family Medicine 09/20/23 documented as of this encounter
--- OUTSIDE RECORDS SUMMARY | 2025-04-20 12:14 | XMS_ITS | Encounter Summary ---
Author Organization [facility] Address [address] [facility] [place] [address] Care Team Providers Care Chief Specialist Leed Name Role Phone Ty Amin MD Primary Care Provider Mckayla Blas CAR SANDER Unavailable [phone] Mckayla Blas NP Unavailable [phone] Encounter Details Date Type Department Care Team (Late st Contact Info) Description 12/17/2023 Orders Only [facility] [address] [place] [address] Mckayla Blas NP [address] [place] [address] Social History Tobacco Use Types Packs/Day Years [...] Health Questionnaire-2 Score 0 11/01/2023 [facility] of Occupat ional [facility] - Occupational Stress Questionnaire Answer Date [...] Endocrinology [address] [place] [address] Rain Souza MD [address] [place] [address] documented as of this encounter Procedures Procedure Name Priority Date/Time Associated Diagnosis Comments MM SCREENING MAMM WITH 3D SERENA - US AND ADDITIONAL Routine 12/14/2023 8:34 AM EDT documented in this encounter Results * MM SCREENING MAMM WITH 3D SERENA - US AND ADDITIONAL (12/14/2023 8:34 AM EDT) Anatomical Region Laterality Modality Radiographic Kalani ging us Mckayla Blas CAR SANDER IMG XR PROCEDURES Final Result documented in this encounter Visit Diagnoses Not on filedocumented in this encounter Care Teams Chief Specialist Leed Relationship Specialty Start Date End Date Ty Amin MD PCP - General Family Medicine 09/20/23 Mckayla Blas NP [address] [place] [address] PCP - [facility] 09/07/23 01/11/25 Mckayla Blas NP Nurse Practitioner Family Medicine 09/20/23 documented as of this encounter
--- OUTSIDE RECORDS SUMMARY | 2025-04-20 12:14 | XMS_ITS | Clinical Summary ---
Author Organization [facility] Address [address] [place] [address] Care Team Providers Care Truck Hop Name Role Phone Ty Amin MD Primary Care Provider [phone] Mckayla Blas NP Unavailable [phone] Allergies No known active allergies Medications [...] (six) hours if needed for wheezing Active HYDROcodone-acetam inophen (Redmond) 5-325 MG tablet 1 tablet as needed [...] sliding scale. Active pregabalin (Lyrica) 300 MG capsuleIndications :Diabetic polyneuropathy associated with type 2 diabetes mellitus (HCC) Take 1 capsule (300 mg) by mouth in the morning and 1 capsule (300 mg) before bedtime. 60 capsule 5 04/14/20 24 Active Accu-Chek Guide Test test stripIndications:T [...] sites 30 patch 1 07/14/19 25 Active pregabalin (Lyrica) 150 MG capsule [...] 1/2 TAB X4 DAYS 12/06/19 25 Active ergocalciferol (Vitamin D2) 1.25 MG (32373 UT) capsuleIndications :Vitamin D deficiency, unspecified Take 1 capsule (1.25 mg) by mouth 1 (one) time per week 12 capsule 1 01/17/20 25 Active sulfamethoxazole-t rimethoprim (Bactrim DS) 800-160 MG per tablet TAKE 1 TABLET BY MOUTH TWICE A DAY FOR 14 DAYS 01/15/20 25 Active amitriptyline (Elavil) 25 MG tabletIndications: Insomnia Take 1 tablet (25 mg) by mouth at bedtime 90 tablet 1 01/27/20 25 025 Active aspirin 81 MG chewable tabletIndications: Type 2 diabetes mellitus with complication, with long-term current use of insulin (HCC) Chew 1 tablet (81 mg) Daily 90 tablet 3 01/27/20 Active cetirizine (ZyrTEC) 10 MG tabletIndications: Non-seasonal allergic rhinitis, unspecified trigger Take 1 tablet (10 mg) by mouth Daily 90 tablet 1 01/27/20 Active dapagliflozin (Farxiga) 10 MGIndications:Type 2 diabetes mellitus with unspecified complications (HCC) Take 1 tablet (10 mg) by mouth Daily 90 tablet 1 01/27/20 025 Active DULoxetine (Cymbalta) [address] capsuleIndications :Anxiety and depression Take 1 capsule (60 mg) by mouth in the morning and 1 capsule (60 mg) before bedtime. Do not crush or chew. 180 capsule 01/27/20 Active fluconazole (Diflucan) 150 MG tabletIndications: Antibiotic-induced yeast infection One time dose, repeat in 3 days . Do not take cholesterol pill while taking this medication. Once finished then resume 2 tablet 1 01/27/20 Active furosemide (Lasix) 20 MG tabletIndications: Bilateral lower extremity edema Take 1 tablet (20 mg) by mouth Daily as needed (edema) Take in the afternoon as needed 90 tablet 01/27/20 025 Active furosemide (Lasix) 40 MG tabletIndications: Bilateral lower extremity edema Take 1 tablet (40 mg) by mouth Daily 90 tablet 01/27/20 025 Active hydrALAZINE (Apresoline) 25 MG tabletIndications: Primary hypertension Take 1 tablet (25 mg) by mouth in the morning and 1 tablet (25 mg) before bedtime. 180 tablet 01/27/20 025 Active lisinopril 20 MG tabletIndications: Primary hypertension Take 1 tablet (20 mg) [...] mouth in the morning. 90 capsule 1 01/27/20 025 Active Roflumilast 500 MCG tabletIndications: Chronic obstructive pulmonary disease, unspecified (HCC) Take 1 tablet by mouth Daily 90 tablet 1 01/27/20 25 025 Active simvastatin (Zocor) 10 MG tabletIndications: Hyperlipidemia, unspecified Take 1 tablet (10 mg) by mouth at bedtime 90 tablet 1 01/27/20 025 Active insulin glargine (Lantus) 100 UNIT/ML injectionIndicatio ns:Type 2 diabetes mellitus with hyperglycemia, with long-term current use of insulin ([facility]) Inject 58 Units under the skin in the morning and 58 Units before bedtime. 104.4 mL 1 01/30/20 25 026 Active insulin glargine (Lantus SoloStar) 100 UNIT/ML penIndications:Typ e 2 diabetes mellitus with hyperglycemia, with long-term current use of insulin ([facility]) INJECT 58 UNITS SUBCUTANEOUSLY TWICE A DAY 105 mL 2 02/17/20 25 Active Tirzepatide (Mounjaro) 15 MG/0.5ML solution auto-injectorIndic ations:Type 2 diabetes mellitus with other circulatory complications ([facility]) Inject 15 mg under the skin 1 (one) time per week 6 mL 1 02/28/20 25 Active varenicline (Chantix) 1 MG tabletIndications: Tobacco user,Encounter for smoking cessation counseling TAKE 1 TABLET BY MOUTH IN THE MORNING AND 1 TABLET BEFORE BEDTIME. TAKE WITH FULL GLASS OF WATER. 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 current use of inhaled steroid 025 Non-pressure [...] to see if helps Encounter for subsequent [facility] wellness visit (AWV) in Medicare patient [...] can try ubrelvy #3 samples given: Lot [id number], exp 03/2025 Mixed incontinence 11/14/2023 Arthritis 11/14/2023 [...] is necessary they take over prescribing Pancreatitis ([facility]) 09/17/2023 COPD exacerbation 09/17/2023 Assessment & Plan [...] 11:17 AM EDT): Open wounds refer to [facility] Pulmonary hypertension 09/17/2023 Assessment & Plan (01/26/2025 7:52 AM EDT): Has seen [facility] Cardiology Assessment & Plan (12/09/2024 7:23 AM EDT): Has seen [facility] Cardiology Assessment & Plan (11/15/2023 3:49 PM EDT): Saw [facility] Cardiology See notes Going to see Pulmonary Assessment & Plan (09/27/2023 1:03 PM EDT): Needs to wear her PAP I am also going to have her see [facility] Cardiology as well PAD (peripheral [...] spiriva Will trial breztri: #2 samples given [id number], exp 03/03, rinse mouth after use Give [...] PM EDT): Current meds: albuterol, duoneb, 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 Assessment & Plan (08/27/2024 7:30 AM EST): Current meds: albuterol, duoneb, 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 Assessment & Plan (01/17/2024 [...] lost script I did contact [facility] [place], they will get another fill on this [...] of the risks of continued smoking: stroke, ID, all forms of cancer, lung disease, and [...] of the risks of continued smoking: stroke, ID, all forms of cancer, lung disease, and [...] [facility] [address] [place] [address] Mckayla Blas NP Tobacco user; Encounter for smoking cessation counseling 02/27/2025 Refill [facility] [address] [place] [address] Amber Pinzon LPN Type 2 diabetes mellitus with other circulatory complications (HCC) 02/26/2025 Refill [facility] [address] [place] [address] Rain Odonnell MD Type 2 diabetes mellitus with other circulatory complications (HCC) 02/18/2025 Abstract [facility] [address] [place] [address] Mckayla Blas NP 02/14/2025 Refill [facility] [address] [place] [address] Rain Odonnell MD Type 2 diabetes mellitus with hyperglycemia, with long-term current use of insulin (HCC) 01/29/2025 9:40 AM EDT Office Visit [facility] [address] [place] [address] Rain Odonnell MD Encounter for dietary consultation (Primary Dx); Type 2 diabetes mellitus with hyperglycemia, with long-term current use of insulin (HCC); Vitamin D deficiency; Primary hypertension ; Insulin long-term use (HCC); Hyperlipemia, mixed ; Microalbuminuria; Class 3 severe obesity due to excess calories with serious comorbidity and body mass index (BMI) of 50.0 to 59.9 in adult ([facility]) 01/29/2025 Clinisync Result Encounter [facility] External Department Unsolicited Provider, Generic External Data 01/29/2025 Bamboo flowsheet [facility] [address] [place] [address] Rain Odonnell MD 01/26/2025 6:00 PM EDT Office Visit [facility] [address] [place] [address] Mckayla Blas NP Encounter for subsequent annual [...] Morbid (severe) obesity due to excess calories ([facility]) 01/26/2025 Bamboo flowsheet [facility] [address] [place] [address] Mckayla Blas NP 01/19/2025 Travel from Last 3 Months Immunizations Immunization Administration Dates Next Due Influenza Whole 05/02/2013 Influenza, F2H1-2406 04/16/2017,05/10/2016 Influenza, Unspecified 05/18/2023,04/16/2017,08/2015 Influenza, injectable, quadrivalent [...] How often do you attend chur or mandaeism services? More than 4 times [...] Recorded Patient Health Questionnaire-2 Score 0 01/26/2025 [facility] of Occupat ional Health - Occupational Stress [...] any time in the past 12 m [facility], were you homeless or living in [...] [facility] [address] [place] [address] aRin Odonnell MD [address] [place] [address] Health Maintenance Due Date Last Done Comments CT Colonography 1970 Colonoscopy 1970 FIT 1970 FOBT 1970 Sigmoidoscopy 1970 HPV/Cotest 2000 Pap Smear 10/07/2018 10/08/2015, 10/08/2015 Mammogram 12/13/2024 12/14/2023, 12/14/2023, 05/01/2023 Influenza Vaccine (#1) 2025 , 05/18/2023, 04/16/2017, Additional history exists Colorectal Cancer Screening 08/03/2025 FIT-DNA 08/03/2025 08/03/2022 Cervical Cancer Screening Discontinued Procedures Procedure Name Priority Date/Time Associated Diagnosis Comments CA ECHO DOPPLER COMPLETE 01/29/2025 6:40 PM EDT POCT GLUCOSE Routine 01/29/2025 9:57 AM EDT Type 2 diabetes mellitus with hyperglycemia, with long-term current use of insulin (HCC) POCT GLYCOSYLATED HEMOGLOBIN (HGB A1C) Routine 01/29/2025 9:57 AM EDT Type 2 diabetes mellitus with hyperglycemia, with long-term current use of insulin (HCC) MM TOMOSYNTHESIS SCREENING BI 12/14/2023 11:21 AM EDT from Last 3 Months or Most Recently Relevant to Health Maintenance Results * CA ECHO DOPPLER COMPLETE (01/29/2025 6:40 PM EDT) Anatomical Region Laterality Modality Other 01/29/2025 6:40 PM EDT Narrative 01/29/2025 6:40 [place] [address] Cardiology Report Signed Patient: SINA MACIAS MR#: [id number] : 1970 Acct:[id number] Age/Sex: 54 / F ADM Date: 01/29/25 Loc: CARD Attending Dr: AMI ORO APRN Ordering Physician: AMI ORO APRN Date of Service: 01/29/25 Procedure(s): CA echo doppler complete Accession Number(s): [id number] cc: Mckayla Blas PASTE UP ARTIST; AMI ORO APRN Patient Name: SINA MACIAS MR#: [id number] : 1970 Exam Date: 01/29/2025 Ordering Doctor: AMI ORO STAFF CYTOTECHNOLOGIST ECHOCARDIOGRAM REPORT PROCEDURE: CA ECHO DOPPLER COMPLETE [...] AGUILAR Signed By: 01/29/251839 DD/ 39 TD/TT: Executive Business Coach: Procedure Note Radiology, Radiologist, MD - 01/29/2025 [place] [address] Cardiology Report Signed Patient: SINA MACIAS LMR#: [id number] : 1970Acct:[id number] Age/Sex: 54 / FADM Date: 01/29/25 Loc: CARD Attending Dr: AMI ORO APRN Ordering Physician: AMI ORO APRN Date of Service: 01/29/25 Procedure(s): CA echo doppler complete Accession Number(s): [id number] cc: Mckayla Blas PASTE UP ARTIST; AMI ORO APRN Patient Name: SINA MACIAS MR#: [id number] : 1970 Exam Date: 01/29/2025 Ordering Doctor: [...] BHARAT AGUILAR Signed By:01/29/251839 DD/ 39 TD/TT: Executive Business Coach: Generic External Data Provider [facility] Final [...] CARE TEST ENTER/EDIT ORDERABLES Final Result * MM TOMOSYNTHESIS SCREENING BI (12/14/2023 11:21 AM EDT) Anatomical Region Laterality Modality Other 12/14/2023 11:2 1 AM EDT Narrative 12/14/2023 11:22 [place] [address] Mammography Report Signed Patient: SINA MACIAS MR#: [id number] : 1970 Acct:[id number] Age/Sex: 53 / F ADM Date: 12/13/23 Loc: MAMMO Attending Dr: Mckayla Blas NP Ordering Physician: Mckayla Blas NP Results: Date of Service: 12/13/23 Follow Up: Procedure(s): MM tomosynthesis screening BI Accession Number(s): [id number] cc: Mckayla Blas NP Patient Name: SINA MACIAS MR#: [id number] : 1970 Exam Date: 12/13/2023 Ordering Doctor: [...] LOCATION: [facility] BREAST COMPOSITION: The breasts are [...] Signed By: 12/14/23 1122 DD/ 1121 TD/TT: Executive Business Coach: Procedure Note Radiology, Radiologist, MD - 12/14/2023 [place] [address] Mammography Report Signed Patient: SINA MACIAS LMR#: [id number] : 1970Acct:[id number] Age/Sex: 53 / FADM Date: 12/13/23 Loc: MAMMO Attending Dr: Mckayla Blas NP Ordering Physician: Mckayla Blas NPResults: Date of Service: 12/13/23Follow Up: Procedure(s): MM tomosynthesis screening BI Accession Number(s): [id number] cc: Mckayla Blas PASTE UP ARTIST Patient Name: SINA MACIAS MR#: [id number] : 1970 Exam Date: 12/13/2023 Ordering Doctor: [...] LOCATION: [facility] BREAST COMPOSITION: The breasts are [...] M.D. Signed By:12/14/23 1122 DD/ 1121 TD/TT: Executive Business Coach: Mckayla Blas NP [facility] Final Result from Last 3 Months or Most Recently Relevant to Health Maintenance Insurance [employer] MEDICARE Care Teams Truck Hop Relationship Specialty Start Date End Date Ty Amin MD PCP - General Family Medicine 09/20/23 Mckayla Blas NP Nurse Practitioner Family Medicine 09/20/23
--- OUTSIDE RECORDS SUMMARY | 2025-04-20 12:14 | XMS_ITS | Patient Health Record ---
Author Organization [facility] [place] Address [address] [place] [address] Care Team Providers Care Service Car Operator Name Role Phone Mckayla Blas CNP Primary Care Provider Unavail able Armando Yañez Unavailable [phone] Allergies No Known Allergies Results Component Value Reference Range Notes CBC AUTO DIFF (Not yet revie wed by provider) Interpretation: Performing Lab: Notes/Report: [facility] , White Blood Count 12.8 4.0-11.0 [...] 10 3/uL Performing Lab: see note - [facility] PROF CHEM 8 (BAS METB) (Not yet reviewed by provider) Interpretation: Performing Lab: Notes/Report: [facility] , Sodium 142 136-145 mmol/L Potassium 4.2 [...] mg/dL Performing Lab: see note - [facility] VC SEGMENTAL PRESSURES (Not yet reviewed by provider) Interpretation: Performing Lab: Notes/Report: Source Facility: [facility] [place] [address] [place] [address] Vein Report Signed Patient: MITZI MACIAS MR#: [id number] : 1970 Acct:[id number] Age/Sex: 53 / F ADM Date: 04/24/24 Loc: VC Attending Dr: Rafael Gongora Ordering Physician: Rafael Gongora Date of Service: 04/24/24 Procedure(s): VC SEGMENTAL PRESSURES Accession Number(s): [id number] cc: Mckayla Blas NP; Rafael Gongora [place] [address] Patient Name: MITZI MACIAS MRN: [facility]:[id number] date: 1970 Sex: F Assigned Patient Location: Current Patient Location: Accession/Order Number: [id number] Exam Date: 04/24/2024 10:25 Report Date: 04/24/2024 11:20 At the request of: RAFAEL GONGORA Procedure: VC SEGMENTAL PRESSURES EXAM: VC SEGMENTAL PRESSURES HISTORY: R09.89 COMPARISON: None. FINDINGS: Segmental pressures presented as follows (right, left) in mmHg. Brachial: 169, 166 Upper thigh: Not obtained Lower thigh: 129, 119 Calf: 124, 106 DPA: 108, 105 HEAD RESIDENT: 100, 91 1st Toe: 124, 142 ISABELLE: [...] M.D. Signed By: 04/24/24 1123 DD/ TD/TT: Table Keeper: Reason For Referral No Information Medications Medication [...] Days Active Vitamin D (Ergocalciferol) 1.25 MG (38433 UT) Oral; Duration: 90 Days Active Breztri Aerosphere 160-9-4.8 MCG/ACT Inhalation; Duration: 30 Days Active Simvastatin 10 MG Oral; Duration: 90 Days Active Roflumilast 250 MCG Oral; Duration: 28 Days Active Immunizations Vaccine Route Administration Date Status Comme nts Flu, Fluzone (01665) 6-35mo, multi-dose vial (9848-4072) Unknown 05/18/2023 Administered Pneumococcal (Pneumovax 23) Unknown [...] ulcer due to type 2 diabetes mellitus (4522189516521) Type 2 diabetes mellitus with foot ulcer (E11.621) Active confirmed Problem Morbid obesity (disorder) (097971650) Morbid (severe) obesity due to excess calories (E66.01) Active confirmed Problem Venous ulcer of lower extremity due to chronic peripheral venous hypertension (655562542324102) Chronic venous hypertension (idiopathic) with ulcer of left lower extremity (I87.312) Active confirmed Problem Chronic non-pressure ulcer of calf extending to fat level (79760282791615352) Non-pressure chronic ulcer of other part of right lower leg with fat layer exposed (L97.812) Active confirmed Problem Chronic ulcer of skin of lower leg (disorder) (04743596699400279) Non-pressure chronic ulcer of other part of left lower leg limited to breakdown of skin (L97.821) Active confirmed Problem Non-pressure chronic ulcer of other part of left lower leg with fat layer exposed (L97.822) Active confirmed Problem Long-term current use of inhaled steroid (826081713) terminal operator (current) use of inhaled steroids (Z79.51) Active confirmed Problem COPD - Chronic obstructive pulmonary disease (41053960) COPD (chronic obstructive pulmonary disease) (J44.9) Active confirmed Problem Gastroesophageal reflux disease (793496354) GERD (gastroesophagea l reflux disease) (K21.9) Active confirmed Problem Hypertension (90155420) HTN (hypertension) (I10) Active confirmed Problem Obstructive sleep apnea syndrome (82040142) DANIEL (obstructive sleep apnea) (G47.33) Active confirmed Problem Lumbar radiculopathy (154432747) Lumbar radiculopathy (M54.16) Active confirmed Problem Diabetes mellitus type 2 (disorder) (09748470) DM2 (diabetes mellitus, type 2) (E11.9) Active confirmed Problem Mental disorder caused by drug (561519724) Cigarette nicotine dependence with nicotine-induced disorder (F17.219) Active confirmed Problem Leukocytosis (013107910) Leukocytosis (D72.829) Active confirmed Problem Acute exacerbation of chronic obstructive airways disease (379048494) COPD with exacerbation (J44.1) Active confirmed Problem Long-term current use of insulin (128021614) Current use of insulin (Z79.4) Active confirmed Problem Idiopathic chronic venous hypertension of both lower extremities with ulcer (I87.313) Active confirmed Problem Non-prs chr ulcer oth prt l low leg limited to brkdwn skin (L97.821) Active confirmed Problem Stasis dermatitis co-occurrent with venous ulcer of right lower extremity due to chronic peripheral venous hypertension (857353980151254) Idiopathic chronic venous hypertension of right lower extremity with ulcer (I87.311) Active confirmed Problem Chronic venous hypertension with ulcer and inflammation involving left side (I87.332) Active confirmed Problem Abnormal arterial blood gas (790875940) Elevated carbon dioxide level (R79.81) Active confirmed Problem Skin ulcer of right knee, limited to breakdown of skin (L97.811) Active confirmed Problem Diabetes mellitus (78506286) Diabetes mellitus (E11.9) Active confirmed Encounters Encounter Location Date Provider Diagnosis Pulmonary Medicine [facility] [address] [place] [address] 12/02/2024 Armando Yañez Plan Of Treatment Pending Test Test Name Order Date CBC AUTO DIFF 08/27/2024 PROF CHEM 8 (BAS METB) 08/27/2024 VC SEGMENTAL PRESSURES 04/24/2024 Insurance Providers Payer Name Payer Address Payer Phone Subscriber Number Group Number Insured Name Patient Relationship to Insured Coverage Start Date Coverage End Date [facility] D[facility] PRIMARY MEDICARE [address] [place] [address] [id number] Mitzi Macias Self - patient is the [...] (hyperlipidemia) E78.5 Elevated carbon dioxide level R79.81 senior care (current) use of inhaled stero ids Z79.51 Anxiety and depression F41.8 GERD (gastroesophageal reflux disease) K 21.9 Surgical History Surgery Date(Month/Year) toe surgery cholecystectomy hysterectomy Hospitalization History Reason Date(Month/Year) Pneumonia -[facility] 08/31/2023 COPD Exacerbation-[facility] 09/10/2023
--- OUTSIDE RECORDS SUMMARY | 2025-04-20 12:14 | XMS_ITS | Encounter Summary ---
Author Organization [facility] Address [address] [place] [address] Care Team Providers Care Fine Arts Packer Name Role Phone Ty Amin MD Primary Care Provider [phone] Mckayla Blas TRAFFIC CONTROL SUPERVISOR Unavailable [phone] Mckayla Blas TRAFFIC CONTROL SUPERVISOR Unavailable [phone] Reason for Visit * Reason Comments Med Refill Encounter Details Date Type Department Care Team (Late st Contact Info) Description 11/27/2023 Refill [facility] [address] [place] [address] Mckayla Blas NP [address] [place] [address] Chronic obstructive pulmonary disease, unspecified (HCC) Social [...] week 07/10/2023 How often do you attend [facility] or anabaptism services? 1 to 4 times [...] EST Office Visit [facility] [address] [place] [address] Rain Souza MD [address] [place] [address] documented as of this encounter Visit Diagnoses Diagnosis Chronic obstructive pulmonary disease, unspecified (HCC) documented in this encounter Care Teams Fine Arts Packer Relationship Specialty Start Date End Date Ty Amin MD PCP - General Family Medicine 09/20/23 Mckayla Blas NP [address] [place] [address] PCP - [facility] 09/07/23 01/11/25 Mckayla Blas NP Nurse Practitioner Family Medicine 09/20/23 documented as of this encounter
--- OUTSIDE RECORDS SUMMARY | 2025-04-20 12:14 | XMS_ITS | Encounter Summary ---
Author Organization [facility] Address [address] [place] [address] Care Team Providers Care Engineering Coordinator Name Role Phone Ty Amin MD Primary Care Provider [phone] Mckayla Blas NURSE RECRUITER Unavailable [phone] Mckayla Blas NP Unavailable [phone] Encounter Details Date Type Department Care Team (Late st Contact Info) Description 12/14/2023 Clinisync Result Encounter [facility] External Department Unsolicited Mckayla Blas NP [address] [place] [address] Social History Tobacco Use Types Packs/Day Years [...] How often do you attend chur or worship services? 1 to 4 times [...] Recorded Patient Health Questionnaire-2 Score 0 11/01/2023 [facility] [...] [facility] [address] [place] [address] Rain Souza MD [address] [place] [address] documented as of this encounter Procedures Procedure Name Priority Date/Time Associated Diagnosis Comments MM TOMOSYNTHESIS SCREENING BI 12/14/2023 11:21 AM EDT documented in this encounter Results * MM TOMOSYNTHESIS SCREENING BI (12/14/2023 11:21 AM EDT) Anatomical Region Laterality Modality Other 12/14/2023 11:2 1 AM EDT Narrative 12/14/2023 11:22 AM EDT The [address] [address] Mammography Report Signed Patient: MITZI MACIAS MR#: [id number] : 1970 Acct:[id number] Age/Sex: 53 / F ADM Date: 12/13/23 Loc: MAMMO Attending Dr: Mckayla Blas NP Ordering Physician: Mckayla Blas NP Results: Date of Service: 12/13/23 Follow Up: Procedure(s): MM tomosynthesis screening BI Accession Number(s): [id number] cc: Mckayla Blas NP Patient Name: MITZI MACIAS MR#: [id number] : 1970 Exam Date: 12/13/2023 Ordering Doctor: [...] unknown cancer at age 75. LOCATION: [facility] BREAST COMPOSITION: The breasts are [...] Signed By: 12/14/23 1122 DD/ 1121 TD/TT: Greenhouse Specialist: Procedure Note Radiology, Radiologist, MD - 12/14/2023 [place] [address] Mammography Report Signed Patient: MITZI MACIAS LMR#: [id number] : 1970Acct:[id number] Age/Sex: 53 / FADM Date: 12/13/23 Loc: MAMMO Attending Dr: Mckyala Blas NURSE RECRUITER Ordering Physician: Mckayla Blas NPResults: Date of Service: 12/13/23Follow Up: Procedure(s): MM tomosynthesis screening BI Accession Number(s): [id number] cc: Mckayla Blas NP Patient Name: MITZI MACIAS MR#: [id number] : 1970 Exam Date: 12/13/2023 Ordering Doctor: SAYDA Blas CONCRETE PUDDLER RADIOLOGY REPORT PROCEDURE: MM TOMOSYNTHESIS SCREENING BI [...] unknown cancer at age 75. LOCATION: [facility] BREAST COMPOSITION: The breasts are [...] M.D. Signed By:12/14/23 1122 DD/ 1121 TD/TT: Greenhouse Specialist: Mckayla Blas NP [facility] Final Result documented in this encounter Visit Diagnoses Not on filedocumented in this encounter Care Teams Engineering Coordinator Relationship Specialty Start Date End Date Ty Amin MD PCP - General Family Medicine 09/20/23 Mckayla Blas NP [address] [place] [address] PCP - [facility] 09/07/23 01/11/25 Mckayla Blas NP Nurse Practitioner Family Medicine 09/20/23 documented as of this encounter
--- OUTSIDE RECORDS SUMMARY | 2025-04-20 12:14 | XMS_ITS | Encounter Summary ---
Author Organization [facility] Address [address] [place] [address] Care Team Providers Care Switch Coupler Name Role Phone Ty Amin MD Primary Care Provider [phone] Ty Amin MD Primary Care Provider [phone] Mckayla Blas DEAN OF MEN Unavailable [phone] Mckayla Blas DEAN OF MEN Unavailable [phone] Encounter Details Date Type Department Care Team (Late st Contact Info) Description 07/08/2023 Abstract [facility] [address] [place] [address] Mckayla Blas NP [address] [place] [address] Social History Tobacco Use Types Packs/Day Years [...] Recorded Patient Health Questionnaire-2 Score 2 07/10/2023 [facility] [...] as of this encounter Functional Status * AUDIT-C Score Answer Date of Assessment Author 2 [...] 2 07/10/2023 11:17 AM [place] [place] * How difficult have these problems made it for you to do your work, take care of things at home, or get along with other people? Answer Date of Assessment Author Somewhat difficult 07/10/2023 11:17 AM EST UMBERTO PALOMO documented as of this encounter Plan of Treatment Upcoming Encounters Date Type Department Care Team (Late st Contact Info) Description 05/28/2025 10:30 AM EST Office Visit [facility] [address] [place] [address] Rain Souza MD [address] [place] [address] documented as of this encounter Visit Diagnoses Not on filedocumented in this encounter Care Teams Switch Coupler Relationship Specialty Start Date End Date Ty Amin MD PCP - General Family Medicine 01/05/23 09/19/23 Ty Amin MD PCP - General Family Medicine 09/20/23 Mckayla Blas NP [address] [place] [address] PCP - [facility] 09/07/23 01/11/25 Mckayla Blas NP Nurse Practitioner Family Medicine 09/20/23 documented as of this encounter
--- OUTSIDE RECORDS SUMMARY | 2025-04-20 12:15 | XMS_ITS | CCD ---
Author Organization [facility] Care Team Providers Care Oleomargarine Maker Name Role Phone James Benavidez Primary Care Provider JAMES BENAVIDEZ Primary Care Unavailable SHENDGE, VITHAL Admitting Unavailable SHENDGE, VITHAL Attending Unavailable AICHHOLZ, MCKAYLA Primary Care Unavailable AICHHOLZ, MCKAYLA Referring Unavailable AICHHOLZ, MCKAYLA J Primary Care Physician Tico, Stephanie Unavailable OLE RAMIREZ Attending Unavailable OLE RAMIREZ Consulting Unavailable AICHHOLZ, MARKETING OPERATIONS ASSOCIATE MCKAYLA Primary Care Unavailable OLE RAMIREZ Admitting Unavailable ANTONY SHRESTHA Consulting Unavailable ALONDRA ., UMBERTO Admitting Unavailable ALONDRA ., UMBERTO Attending Unavailable AICHHOLZ, MARKETING OPERATIONS ASSOCIATE MCKAYLA Primary Care Unavailable AFSANEH Loera, DR BOLANOS Consulting Unavailable MARYANNE POWER Consulting Unavailable GLENN KERR Consulting Unavailable YOMAIRA KERR Consulting Unavailable HATTIE GOFF Consulting Unavailable ALONDRA ., UMBERTO Consulting Unavailable TICO, STEPHANIE Attending Unavailable TICO, STEPHANIE Consulting Unavailable AICHHOLZ, MARKETING OPERATIONS ASSOCIATE MCKAYLA Primary Care Unavailable TICO, STEPHANIE Admitting Unavailable REGLA ., DR DUMONT Admitting Unavailable AICHHOLZ, MARKETING OPERATIONS ASSOCIATE MCKAYLA Primary Care Unavailable REGLA ., DR DUMONT Attending Unavailable ARAUZ ., DR DUMONT Consulting Unavailable COLLIN HUERTAS Consulting Unavailable CECILIA KAUFMAN Admitting Unavailable CECILIA KAUFMAN Attending Unavailable AICHHOLZ, MARKETING OPERATIONS ASSOCIATE MCKAYLA Primary Care Unavailable RAFAEL GONGORA Attending Unavailable RAFAEL GONGORA Admitting Unavailable AICHHOLZ, MARKETING OPERATIONS ASSOCIATE MCKAYLA Primary Care Unavailable AICHHOLZ, MARKETING OPERATIONS ASSOCIATE MCKAYLA Admitting Unavailable AICHHOLZ, MARKETING OPERATIONS ASSOCIATE MCKAYLA Primary Care Unavailable AICHHOLZ, MARKETING OPERATIONS ASSOCIATE MCKAYLA Attending Unavailable AICHHOLZ, MARKETING OPERATIONS ASSOCIATE MCKAYLA Consulting Unavailable LAKSHMIPATHY ., NARENDRANATH Attending Anette vailable LAKSHMIPATHY ., NARENDRANATH Consulting Anette vailable LAKSHMIPATHY ., NARENDRANATH Admitting Anette vailable AICHHOLZ, MARKETING OPERATIONS ASSOCIATE MCKAYLA Primary Care Unavailable VALENZUELA ., GIL Consulting Unavailable MORTENSEN ., DR CHAPARRO Aguillon Attending Unavailable MORTENSEN ., DR CHAPARRO Aguillon Admitting Unavailable AICHHOLZ, MARKETING OPERATIONS ASSOCIATE MCKAYLA Primary Care Unavailable VALENZUELA ., GIL Consulting Unavailable MORTENSEN ., DR CHAPARRO Aguillon Admitting Unavailable AICHHOLZ, MARKETING OPERATIONS ASSOCIATE MCKAYLA Primary Care Unavailable MORTENSEN ., DR CHAPARRO Aguillon Attending Unavailable HALKER ., SUBHASH Consulting Unavailable LAKSHMIPATHY ., NARENDRANATH Admitting Anette vailable LAKSHMIPATHY ., NARENDRANATH Attending Anette vailable AICHHOLZ, MARKETING OPERATIONS ASSOCIATE MCKAYLA Primary Care Unavailable MORTENSEN ., DR CHAPARRO Aguillon Attending Unavailable MORTENSEN ., DR CHAPARRO Aguillon Admitting Unavailable VALENZUELA ., GIL Consulting Unavailable AICHHOLZ, MARKETING OPERATIONS ASSOCIATE MCKAYLA Primary Care Unavailable VALENZUELA ., GIL Consulting Unavailable MORTENSEN ., DR CHAPARRO Aguillon Attending Unavailable MORTENSEN ., DR CHAPARRO Aguillon Admitting Unavailable AICHHOLZ, MARKETING OPERATIONS ASSOCIATE MCKAYLA Primary Care Unavailable HATTIE BRODERICK Attending Unavailable HATTIE BRODERICK Admitting Unavailable AICHHOLZ, MARKETING OPERATIONS ASSOCIATE MCKAYLA Primary Care Unavailable AICHHOLZ, MARKETING OPERATIONS ASSOCIATE MCKAYLA Admitting Unavailable AICHHOLZ, MARKETING OPERATIONS ASSOCIATE MCKAYLA Consulting Unavailable AICHHOLZ, MARKETING OPERATIONS ASSOCIATE MCKAYLA Primary Care Unavailable AICHHOLZ, MARKETING OPERATIONS ASSOCIATE MCKAYLA Attending Unavailable AICHHOLZ, MARKETING OPERATIONS ASSOCIATE MCKAYLA Primary Care Unavailable MISC, DR LESLIE Admitting Unavailable MISC, DR LESLIE Attending Unavailable MISC, DR LESLIE Consulting Unavailable DIAB ., MARIANO Admitting Unavailable DIAB ., MARIANO Attending Unavailable DIAB ., MARIANO Consulting Unavailable AICHHOLZ, MARKETING OPERATIONS ASSOCIATE MCKAYLA Primary Care Unavailable RASTEGAR, RICCO Consulting Unavailable AICHHOLZ, MARKETING OPERATIONS ASSOCIATE MCKAYLA Admitting Unavailable AICHHOLZ, MARKETING OPERATIONS ASSOCIATE MCKAYLA Primary Care Unavailable AICHHOLZ, MARKETING OPERATIONS ASSOCIATE MCKAYLA Attending Unavailable AICHHOLZ, MARKETING OPERATIONS ASSOCIATE MCKAYLA Consulting Unavailable DR PATRICIA VELOZ Consulting Unavailable TAMLYN ., CECILIA Attending Unavailable TAMLYN ., CECILIA Admitting Unavailable DR PATRICIA VELOZ Consulting Unavailable AICHHOLZ, MARKETING OPERATIONS ASSOCIATE MCKAYLA Primary Care Unavailable TAMLYN ., CECILIA Consulting Unavailable MORTENSEN ., DR CHAPARRO Aguillon Attending Unavailable FESTUS ., DR CHAPARRO Aguillon Consulting Unavailable FESTUS ., DR CHAPARRO Aguillon Admitting Unavailable AICHHOLZ, MARKETING OPERATIONS ASSOCIATE MCKAYLA Primary Care Unavailable HATTIE BRODERICK Attending Unavailable HATTIE BRODERICK Consulting Unavailable HATTIE BRODERICK Admitting Unavailable AICHHOLZ, MARKETING OPERATIONS ASSOCIATE MCKAYLA Primary Care Unavailable HATTIE BAUTISTA Unavailable AICHHOLZ, MARKETING OPERATIONS ASSOCIATE MCKAYLA Admitting Unavailable AICHHOLZ, MARKETING OPERATIONS ASSOCIATE MCKAYLA Attending Unavailable AICHHOLZ, MARKETING OPERATIONS ASSOCIATE MCKAYLA Consulting Unavailable AICHHOLZ, MARKETING OPERATIONS ASSOCIATE MCKAYLA Primary Care Unavailable Brennan PHIPPS, Ty Primary Care Provider [phone] Brennan PHIPPS, Ty Primary Care Provider [phone] Aichholz QUALITY ENG, Mckayla Unavailable Aichholz QUALITY ENG, Mckayla Unavailable Elbert ARAUZ Attending Unavailable SARAH VEGA Attending Unavailable AICHHOLZ, MCKAYLA Attending Unavailable LIBBYRAIN MENDEZ F Attending Unavailable AICHHOLZ, MCKAYLA Attending Unavailable AICHHOLZ, MCKAYLA Attending Unavailable AICHHOLZ, MCKAYLA Attending Unavailable LIBBY, AHMAD F Attending Unavailable AICHHOLZ, MCKAYLA Attending Unavailable LIBBY, AHMAD F Attending Unavailable LIBBY, AHMAD F Referring Unavailable AICHHOLZ, MCKAYLA Attending Unavailable Aichholz QUALITY ENG, Mckayla Unavailable Aichholz QUALITY ENG-C, Mckayla J Primary Care Provider Price Arora DO Attending Provider [phone] Adonay DPM, Flynn Rice Attending Provider Aichholz QUALITY ENG-C, Mckayla Krystal Attending Provider AMI ORO Attending Unavailable DAKOTAH BRIDGES Attending Unavailable Adonay CHAU, Flynn Arzate Attending Unavailab le Bob TELEVISION MAINTENANCE WORKER-MARKETING OPERATIONS ASSOCIATE, Omero Lovell Attending Unav ailable Adonay CHAU, Flynn Arzate Referring Unavailab lolita Kellogg MD, Corinne Ghosh Attending Unavail able Aichholz TELEVISION MAINTENANCE WORKER-MARKETING OPERATIONS ASSOCIATE, Mckayla Citlalli Primary Care Unava ilable Bob TELEVISION MAINTENANCE WORKER-MARKETING OPERATIONS ASSOCIATE, Omero Lovell Attending Una roberto Urias DPM, Flynn Arzate Attending [facility] lolita oRjas APRN-MARKETING OPERATIONS ASSOCIATE, Omero Lovell Attending Anette roberto Blas APRNMARKETING OPERATIONS ASSOCIATE, Mckayla Lennon Primary Care Indy simpson Allergies Allergy Classification Reported Allergen(s) Allergy Type Date of Onset Reaction(s) Facility (1 source) No Known Medication Allergies; Translations: [No Known Medication Allergies] Propensity to adverse reactions (disorder) [facility] Repository Medications Current Medications [...] tablet by mouth every four hours Hydrocodone-Acetaminophen ([place]) 5-325 mg tablet Discontinued 1 TAB PO Q4H December 13, 2017 April 05, 2025 12:52pm Start: 12-13-2017 take 1 tablet by vandana th every four to six hours as needed for pain HYDROcodone-acet aminophen ([place]) 5-325 MG tablet 1 tablet 3 (three) times a day as needed for severe pain. Active take 1 tablet by vandana th twice daily as needed [place] 5-325 MG 1 tablet as needed Orally [...] every week ergocalciferol (Vitamin D2) 1.25 MG (33423 UT) capsule Indications: Vitamin D deficiency, unspecified Take 1 capsule (1.25 mg) by mouth 1 (one) time per week 12 capsule 1 01/16/2025 04/10/2025 Active Start: 10-27-2024 End: 01-19-2025 take 1 capsule by mouth two times weekly ergocalciferol (Vitamin D2) 1.25 MG (47934 UT) capsule Indications: Vitamin D deficiency, unspecified Take 1 capsule (1.25 mg) by mouth 2 (two) times a week 24 capsule 1 10/27/2024 01/19/2025 Active Start: 04-06-2024 End: 10-27-2024 take 1 capsule by mouth every week ergocalciferol (Vitamin D2) 1.25 MG (22865 UT) capsule Indications: Vitamin D deficiency, unspecified [...] 02/06/22 Status: Ordered take 1 tablet by [facility] every twenty-four hours Meloxicam 7.5 MG [...] 02-06-2022 Chronic Other aftercare (1 source) Other detention (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 therapy; Translations: [OTH CARE HOME CURRENT DRUG THERAPY] Onset: 3 Episodic Other aftercare (1 source) 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 Please see below for information. Glass Embosser: Zayra Ag, RVS Radiologist Report BILATERAL LOWER EXTREMITY ISABELLE STUDY CLINICAL INFORMATION: Peripheral vascular disease . Claudication and rest pain. COMPARISON: None. Bilateral brachial pressures, 176 mmHg left and 169 mmHg right, were performed along with segmental pressures of both lower legs at the ankles. LEFT: Posterior Tibial ISABELLE = 0.73 Dorsalis Pedis ISABELLE = 0.64 Toe Brachial Index = 0.59 RIGHT: Posterior Tibial ISABELLE = 0.63 Dorsalis Pedis ISABELLE = 0.74 Toe Brachial Index = 0.41 There are biphasic waveforms bilaterally with dampening of waveforms in the dorsalis pedis bilaterally. IMPRESSION: Mild peripheral artery occlusive disease bilaterally. Mild small vessel disease bilaterally. Above findings can be further evaluated with CTA as clinically warranted. Based on the findings of this testing the patient may benefit by being referred to Vascular Rehabilitation. If interested, please contact our Vascular Rehabilitation Department at [phone]. Final Signed by: Jose F Casanova MD Signed (Electronic Signature): 04.17.2025 3:28 pm Transcribed by: Jose F Casanova MD Transcribed DT/TM: 04.17.2025 3:12 (If Report is Signed, Electronically Signed in Other Vendor System) [facility] Basophils Auto (Bld) [#/Vol] Ordered By: Flynn Urias on 03-26-2025 Basophils (Bld) [#/Vol] 0.1 10 3/uL 0.0-0.1 [facility] Basophils/100 WBC Auto (Bld) Ordered By: Flynn Urias on 03-26-2025 Basophils/100 WBC (Bld) 0.6 % 0.2-2.[address] [facility] Eosinophils/100 WBC Auto (Bl d)Ordered By: Flynn Urias on 03-26-2025 Eosinophils/100 WBC (Bld) 2.7 % 0.9-7.0 [facility] Erythrocyte distribution wid th Auto (RBC) [Ratio]Ordered By: Flynn Urias on 03-26-2025 Erythrocyte distribution width (RBC) [Ratio] 16.4 % High 11.0-15.0 [facility] Glomerular filtration rate ( GFR) estimation in non- AmericanOrdered By: Flynn Urias on 03-26-2025 GFR/1.73 sq M.predicted among non-blacks MDRD (S/P/Bld) [Vol rate/Area] mL/min/{1.73_m2} >=60 mL/min/1.73m 2 [facility] Hematocrit Auto (Bld) [Volum e fraction]Ordered By: Flynn Urias on 03-26-2025 Hematocrit (Bld) [Volume fraction] 52.5 % High 36.0-48.0 [facility] Hemoglobin [Mass/volume] in BloodOrdered By: Flynn Urias on 03-26-2025 Hemoglobin (Bld) [Mass/Vol] 16.1 g/dL High 12.0-16.0 [facility] Laboratory - Chemistry and C hemistry - challengeOrdered By: Flynn Urias on 03-26-2025 Albumin [Mass/Vol] 2.8 g/dL Low 3.4-5.0 [facility] Calcium [Mass/Vol] 8.6 mg/dL 8.5-10.1 [facility] Chloride [Moles/Vol] 105 mmol/L 98-107 [facility] CO2 [Moles/Vol] 31.5 mmol/L 21.0-32.0 [facility] Creatinine [Mass/Vol] 0.69 mg/dL 0.55-1.02 [facility] GFR/1.73 sq M.predicted MDRD (S/P/Bld) [Vol rate/Area] mL/min/{1.73_m2} >=60 mL/min/1.73m 2 [facility] Glucose [Mass/Vol] 147 mg/dL High 74-106 [facility] Potassium [Moles/Vol] 4.2 mmol/L 3.5-5.1 [facility] Sodium [Moles/Vol] 141 mmol/L 136-145 [facility] Urea nitrogen [Mass/Vol] 15.0 mg/dL 7.0-18.0 [facility] Urea nitrogen/Creatinine [Mass ratio] 21.7 mg/mg [facility] Laboratory - Hematology and Cell countsOrdered By: Flynn Urias on 03-26-2025 ESR (Bld) [Velocity] 48 mm/h High <=30 [facility] Immature granulocytes/100 WBC (Bld) 0.3 % 0.0-0.5 [facility] Leukocytes [#/volume] correc bakari for nucleated erythrocytes in Blood by Automated counOrdered By: Flynn Urias on 03-26-2025 WBC corrected for nucl RBC Auto (Bld) [#/Vol] 10.0 10 3/uL 4.0-11.0 [facility] Lymphocytes Auto (Bld) [#/Vo l]Ordered By: Flynn Urias on 03-26-2025 Lymphocytes (Bld) [#/Vol] 2.7 10 3/uL 1.2-3.8 [facility] Lymphocytes/100 WBC Auto (Bl d)Ordered By: Flynn Urias on 03-26-2025 Lymphocytes/100 WBC (Bld) 27.2 % 20.5-60.0 [facility] MCH Auto (RBC) [Entitic mass ]Ordered By: Flynn Urias on 03-26-2025 MCH (RBC) [Entitic mass] 27.2 pg 26.7-34.0 [facility] MCHC Auto (RBC) [Mass/Vol]Or dered By: Flynn Urias on 03-26-2025 MCHC (RBC) [Mass/Vol] 30.7 g/dL 29.9-35.2 [facility] MCV Auto (RBC) [Entitic vol] Ordered By: Flynn Urias on 03-26-2025 MCV (RBC) [Entitic vol] 88.7 fL 81.0-99.[address] [facility] Monocytes Auto (Bld) [#/Vol] Ordered By: Flynn Urias on 03-26-2025 Monocytes (Bld) [#/Vol] 0.5 10 3/uL 0.3-0.8 [facility] Monocytes/100 WBC Auto (Bld) Ordered By: Flynn Urias on 03-26-2025 Monocytes/100 WBC (Bld) 5.2 % 1.7-12.[address] [facility] Neutrophils Auto (Bld) [#/Vo l]Ordered By: Flynn Urias on 03-26-2025 Neutrophils (Bld) [#/Vol] 6.4 10 3/uL 1.4-6.5 [facility] Neutrophils/100 WBC Auto (Bl d)Ordered By: Flynn Urias on 03-26-2025 Neutrophils/100 WBC (Bld) 64.0 % 43.0-75.0 [facility] No Panel InformationOrdered By: Flynn Urias on 03-26-2025 C-Reactive Protein, Quantitative 3.94 mg/dL High <=0.50 [facility] Eosinophils # (Auto) 0.3 10 3/uL 0.0-0.7 [facility] Immature Granulocyte # (Auto) 0.03 10 3/uL 0.00-0.03 [facility] Phosphorus Level 3.5 mg/dL 2.6-4.7 [facility] Platelet mean volume Auto (B ld) [Entitic vol]Ordered By: Flynn Urias on 03-26-2025 Platelet mean volume (Bld) [Entitic vol] 12.8 fL 9.5-13.5 [facility] Platelets Auto (Bld) [#/Vol] Ordered By: Flynn Urias on 03-26-2025 Platelets (Bld) [#/Vol] 146 10 3/uL Low 150-450 [facility] RBC Auto (Bld) [#/Vol]Ordere d By: Flynn Urias on 03-26-2025 RBC (Bld) [#/Vol] 5.92 10 6/uL High 4.20-5.40 [facility] Serum or plasma anion gap de terminationOrdered By: Flynn Urias on 03-26-2025 Anion gap [Moles/Vol] 8.7 mmol/L [facility] Basophils Auto (Bld) [#/Vol] Ordered By: Price Arora on 03-25-2025 Basophils (Bld) [#/Vol] 0.1 10 3/uL 0.0-0.1 [facility] Basophils/100 WBC Auto (Bld) Ordered By: Price Arora on 03-25-2025 Basophils/100 WBC (Bld) 0.4 % 0.2-2.0 [facility] Eosinophils/100 WBC Auto (Bl d)Ordered By: Price Arora on 03-25-2025 Eosinophils/100 WBC (Bld) 2.4 % 0.9-7.0 [facility] Erythrocyte distribution wid th Auto (RBC) [Ratio]Ordered By: Price Arora on 03-25-2025 Erythrocyte distribution width (RBC) [Ratio] 16.4 % High 11.0-15.0 [facility] Glomerular filtration rate ( GFR) estimation in non- AmericanOrdered By: Price Arora on 03-25-2025 GFR/1.73 sq M.predicted among non-blacks MDRD (S/P/Bld) [Vol rate/Area] mL/min/{1.73_m2} >=60 mL/min/1.73m 2 [facility] Hematocrit Auto (Bld) [Volum e fraction]Ordered By: Price Arora on 03-25-2025 Hematocrit (Bld) [Volume fraction] 56.6 % High 36.0-48.0 [facility] Hemoglobin [Mass/volume] in BloodOrdered By: Price Arora on 03-25-2025 Hemoglobin (Bld) [Mass/Vol] 17.4 g/dL High 12.0-16.0 [facility] Laboratory - Chemistry and C hemistry - challengeOrdered By: Price Arora on 03-25-2025 Bilirubin Ql (U) Negative NEGATIVE [facility] Glucose (U) [Mass/Vol] Negative NEGATIVE [facility] Ketones Ql (U) Negative NEGATIVE [facility] pH (U) 8.0 [pH] 5.0-9.0 [facility] Specific gravity (U) [Rel density] 1.020 1.005-1.025 [facility] Urobilinogen Qn (U) 1.0 {Little'U}/dL 0.2-1.0 [facility] Calcium [Mass/Vol] 9.2 mg/dL 8.5-10.1 [facility] Chloride [Moles/Vol] 106 mmol/L 98-107 [facility] CO2 [Moles/Vol] 36.9 mmol/L High 21.0-32.0 [facility] Creatinine [Mass/Vol] 0.86 mg/dL 0.55-1.02 [facility] GFR/1.73 sq M.predicted MDRD (S/P/Bld) [Vol rate/Area] mL/min/{1.73_m2} >=60 mL/min/1.73m 2 [facility] Glucose [Mass/Vol] 164 mg/dL High 74-106 [facility] Potassium [Moles/Vol] 4.0 mmol/L 3.5-5.1 [facility] Sodium [Moles/Vol] 144 mmol/L 136-145 [facility] Urea nitrogen [Mass/Vol] 14.0 mg/dL 7.0-18.0 [facility] Urea nitrogen/Creatinine [Mass ratio] 16.3 mg/mg [facility] Laboratory - Hematology and Cell countsOrdered By: Price Arora on 03-25-2025 Immature granulocytes/100 WBC (Bld) 0.3 % 0.0-0.5 [facility] Laboratory - Specimen inform ationOrdered By: Price Arora on 03-25-2025 Appearance (U) CLEAR CLEAR [facility] Color (U) LT. YELLOW YELLOW [facility] Laboratory - UrinalysisOrder ed By: Price Arora on 03-25-2025 Hyaline casts LM Ql (Urine sed) RARE [facility] Leukocyte esterase Test strip Ql (U) Negative NEGATIVE [facility] Mucus Ql (Urine sed) TRACE Abnormal NONE SEEN [facility] Nitrite Ql (U) Negative NEGATIVE [facility] Protein Ql (U) 100 mg/dL Abnormal NEG/TRACE [facility] Leukocytes [#/volume] correc bakari for nucleated erythrocytes in Blood by Automated counOrdered By: Price Arora on 03-25-2025 WBC corrected for nucl RBC Auto (Bld) [#/Vol] 11.8 10 3/uL High 4.0-11.0 [facility] Lymphocytes Auto (Bld) [#/Vo l]Ordered By: Price Arora on 03-25-2025 Lymphocytes (Bld) [#/Vol] 3.1 10 3/uL 1.2-3.8 [facility] Lymphocytes/100 WBC Auto (Bl d)Ordered By: Price Arora on 03-25-2025 Lymphocytes/100 WBC (Bld) 26.4 % 20.5-60.0 [facility] MCH Auto (RBC) [Entitic mass ]Ordered By: Price Arora on 03-25-2025 MCH (RBC) [Entitic mass] 27.5 pg 26.7-34.0 [facility] MCHC Auto (RBC) [Mass/Vol]Or dered By: Price Arora on 03-25-2025 MCHC (RBC) [Mass/Vol] 30.7 g/dL 29.9-35.2 [facility] MCV Auto (RBC) [Entitic vol] Ordered By: Price Arora on 03-25-2025 MCV (RBC) [Entitic vol] 89.4 fL 81.0-99.0 [facility] Monocytes Auto (Bld) [#/Vol] Ordered By: Price Arora on 03-25-2025 Monocytes (Bld) [#/Vol] 0.6 10 3/uL 0.3-0.8 [facility] Monocytes/100 WBC Auto (Bld) Ordered By: Price Arora on 03-25-2025 Monocytes/100 WBC (Bld) 5.2 % 1.7-12.[address] [facility] Neutrophils Auto (Bld) [#/Vo l]Ordered By: Price Arora on 03-25-2025 Neutrophils (Bld) [#/Vol] 7.7 10 3/uL High 1.4-6.5 [facility] Neutrophils/100 WBC Auto (Bl d)Ordered By: Price Arora on 03-25-2025 Neutrophils/100 WBC (Bld) 65.3 % 43.0-75.0 [facility] No Panel InformationOrdered By: Price Arora on 03-25-2025 Urine Bacteria TRACE #/HPF Abnormal NONE SEEN [facility] Urine Culture Reflexed NO Fi [facility] Urine Occult Blood Negative NEGATIVE [facility] Urine Other Casts SEEN #/LPF Abnormal NONE SEEN [facility] Urine Other Crystals None Seen #/HPF None Seen [facility] Urine RBC 0-2 #/HPF 0-2 [facility] Urine Squamous Epithelial Cells FEW #/LPF Abnormal NONE/RARE [facility] Urine WBC 0-2 #/HPF Abnormal NONE SEEN [facility] Eosinophils # (Auto) 0.3 10 3/uL 0.0-0.7 [facility] Immature Granulocyte # (Auto) 0.04 10 3/uL High 0.00-0.03 [facility] Platelet mean volume Auto (B ld) [Entitic vol]Ordered By: Price Arora on 03-25-2025 Platelet mean volume (Bld) [Entitic vol] 12.4 fL 9.5-13.5 [facility] Platelets Auto (Bld) [#/Vol] Ordered By: Price Arora on 03-25-2025 Platelets (Bld) [#/Vol] 160 10 3/uL 150-450 [facility] RBC Auto (Bld) [#/Vol]Ordere d By: Price Arora on 03-25-2025 RBC (Bld) [#/Vol] 6.33 10 6/uL High 4.20-5.40 [facility] Serum or plasma anion gap de terminationOrdered By: Price Arora on 03-25-2025 Anion gap [Moles/Vol] 5.1 mmol/L [facility] Vascular Office/Clinic Noteo n 03-23-2025 Vascular Office/Clinic [...] She has had testing done at the [facility] last year which she brought [...] 0.5 per day. Packs Electronically signed by Bbo AMAURYOmero Nas 03/23/25 12:[address] [facility] Podiatry Office/Clinic Noteo n 03-11-2025 Podiatry [...] wraps (gauze, tila bandage, Coban II, tuba customer advocate), Dakins solution, a 40-day course of antibiotics, [...] other blood thinners. The patient resides in [place]. Review of Systems Constitutional: Negative for signs [...] extremities Positi (more content not included)... [facility] Comment on above: Order Comment: Destiny ocampo Attachment [id number] Can be viewed in source system XR Tibia/Fibula Righton XR Tibia/Fibula Right 2 views right tib-fib [...] Electronically Signed in Other Vendor System) Normal [facility] Results Follow-Upon 02-05-20 Results Follow-Up [id number] Mitzi Macias 1970 F Date Provider Department Center 02/04/2025 [id number] None Family History Problem Relation Age of Onset Heart attack Paternal Grandmother Family Status - Relation Status Age at Mother Father Paternal Grandmother Normal [facility] Orders Onlyon 01-30-2025 Orders Only [id number] MaciasMitzi 1970 F Date Provider Department Center 01/30/2025 [id number], HISTORICAL CARD [facility] Family History Problem Relation Age of Onset Heart attack Paternal Grandmother Family Status - Relation Status Age at Mother Father Paternal Grandmother Normal [facility] CA ECHO DOPPLER COMPLETEon 0 01-29-2025 [place] [address] Cardiology Report Signed Patient: MITZI MACIAS MR#: [id number] : 1970 Acct:[id number] Age/Sex: 54 / F ADM Date: 01/29/25 Loc: CARD Attending Dr: AMI ORO APRN Ordering Physician: AMI ORO APRN Date of Service: 01/29/25 Procedure(s): CA echo doppler complete Accession Number(s): [id number] cc: Mckayla Blas NP; AMI ORO APRN Patient Name: MITZI MACIAS MR#: [id number] : 1970 Exam Date: 01/29/2025 Ordering Doctor: AMI ORO [employer] ASSOCIATE ECHOCARDIOGRAM REPORT PROCEDURE: CA ECHO DOPPLER COMPLETE [...] HERRERA Signed By: 01/29/251839 DD/ 39 TD/TT: Senior Cost Estimator: [facility] Radiology, Radiologist, MD - 01/29/2025 [place] [address] Cardiology Report Signed Patient: MITZI MACIAS MR#: [id number] : 1970 Acct:[id number] Age/Sex: 54 / F ADM Date: 01/29/25 Loc: CARD Attending Dr: AMI ORO APRN Ordering Physician: AMI ORO APRN Date of Service: 01/29/25 Procedure(s): CA echo doppler complete Accession Number(s): [id number] cc: Mckayla Blas NP; AMI ORO APRN Patient Name: MITZI MACIAS MR#: [id number] : 1970 Exam Date: 01/29/2025 Ordering Doctor: AMI ORO [facility] ECHOCARDIOGRAM REPORT PROCEDURE: CA ECHO [...] HERRERA Signed By: 01/29/251839 DD/ 39 TD/TT: Senior Cost Estimator: [facility] Radiology Study observation (narrative) [facility] CA ECHO DOPPLER COMPLETEOrde red By: Radiologist Radiology on 01-29-2025 [facility] Work Phone: Glucose (Bld) [Mass/Vol]on 0 01-29-2025 Glucose Blood, POC 121 mg/dL [facility] Laboratory - Hematology and Cell countson 01-29-2025 HbA1c (Bld) [Mass fraction] 8.4 % [facility] No Panel Informationon 01-29 Interpretation and review of laboratory results Abnormal [facility] Office Visiton 01-06-2025 Follow-up visit [id number] Mitzi Macias 1970 F Date Provider Department Center 01/06/2025 Mikaela-AMI ORO [facility] Family History Problem Relation Age of Onset Heart attack Paternal Grandmother Family Status - Relation Status Age at Mother Father Paternal Grandmother Level of Service:93473 SD OFFICE/OUTPATIENT ESTABLISHED MOD MDM 30 MIN Reason for Visit and Comments: Congestive Heart Failure [127] Hypertension [331743] Hyperlipidemia [182] Normal [facility] 36on 10-21-2024 36 Regarding lab results from 10/08/2024: MD Mickie Merritt MA Lipids, ALT AST, and BMP are normal. HbA1c was not performed. Continue current management. LM on patient's VM. Normal [facility] Glucose (Bld) [Mass/Vol]Orde red By: Mica Sauceda on 10-08-2024 Glucose Blood, POC 97 mg/dL [facility] Laboratory - Hematology and Cell countson 10-08-2024 HbA1c (Bld) [Mass fraction] 7.4 % [facility] No Panel InformationOrdered By: Mica Sauceda on 10-08-2024 [facility] TBH UA (CLEAN/CATCH) MICROSC OPIC IF INDICATEon 10-08-2024 BILIRUBIN URINE Negative NEGATIVE [facility] BLOOD URINE Negative NEGATIVE [facility] Clarity (U) CLEAR CLEAR [facility] Color (U) YELLOW YELLOW [facility] GLUCOSE URINE UA Negative NEGATIVE mg/dL [facility] Interpretation and review of laboratory results Abnormal [facility] Ketones Ql (U) Negative NEGATIVE mg/dL [facility] Leukocyte esterase Test strip Ql (U) Negative NEGATIVE [facility] NITRITE URINE Negative NEGATIVE [facility] pH (U) 5.5 [pH] 5.0 - 9.0 [facility] Protein (U) [Mass/Vol] 30 mg/dL Abnormal NEG/TRACE NO [facility] SPECIFIC GRAVITY URINE >=1.030 Abnormal 1.005 - 1.025 [facility] URINE MICROSCOPIC INDICATED YES [facility] UROBILINOGEN URINE 1.0 EU/dL 0.2 - 1.0 EU/dL [facility] ALL CBC WITH AUTO DIFFon BASOPHILS ABSOLUTE AUTO 0.1 [facility] Basophils/100 WBC (Bld) 0.5 % 0.2 - 2.0 % [facility] Eosinophils/100 WBC (Bld) 1.9 % 0.9 - 7.0 % [facility] Erythrocyte distribution width (RBC) [Ratio] 14.6 % 11.0 - 15.0 % [facility] Hematocrit (Bld) [Volume fraction] 50.9 % High 36.0 - 48.0 % [facility] Hemoglobin (Bld) [Mass/Vol] 16.1 g/dL High 12.0 - 16.0 g/dL [facility] IMMATURE GRANULOCYTES ABS AUTO 0.04 High [facility] Immature granulocytes/100 WBC (Bld) 0.3 % 0.0 - 0.5 % [facility] Interpretation and review of laboratory results Abnormal [facility] LYMPHOCYTES ABSOLUTE AUTO 3.2 [facility] Lymphocytes/100 WBC (Bld) 25.1 % 20.5 - 60.0 % [facility] MCH (RBC) [Entitic mass] 29.2 pg 26. 7 - 34.0 pg [facility] M[facility]C (RBC) [Mass/Vol] 31.6 g/dL 29.9 - 35.2 g/dL [facility] MCV (RBC) [Entitic vol] 92.2 fL 81.0 - 99.0 fL [facility] MONOCYTES ABSOLUTE AUTO 0.7 [facility] Monocytes/100 WBC (Bld) 5.2 % 1.7 - 12.0 % [facility] NEUTROPHILS ABSOLUTE AUTO 8.6 High [facility] Neutrophils/100 WBC (Bld) 67 % 43.0 - 75.0 % [facility] Platelet mean volume (Bld) [Entitic vol] 12.8 fL 9.5 - 13.5 fL [facility] TBH EO # 0.2 [facility] TB PLT 122 Low [facility] Healthcare TBH RBC 5.52 High [facility] TBH WBC 12.8 High [facility] Office Visiton 08-08-2024 Follow-up visit [id number] Mitzi Macias Gilberto 1970 F Date Provider Department Center 08/08/2024 [id number] BRIDGES MARIO Villalobos [facility] Family History Problem Relation Age of Onset Heart attack Paternal Grandmother Family Status - Relation Status Age at Paternal Grandmother Level of Service:18737 SD OFFICE/OUTPATIENT ESTABLISHED MOD MDM 30 MIN Reason for Visit and Comments: Congestive Heart Failure [127] - Denies chest pain, SOB, and palpitations. Hypertension [448330] Hyperlipidemia [182] LVH [Other] Edema [[id number]] - Denies worsening edema. She sees wound care for RLE ulcer. She was seeing the vein specialists here in town but they are moving to [place] in a few weeks. Normal [facility] Glucose (Bld) [Mass/Vol]Orde red By: Mica Sauceda on 05-27-2024 Glucose Blood, POC 158 mg/dL [facility] Laboratory - Hematology and Cell countson 05-27-2024 HbA1c (Bld) [Mass fraction] 9.2 % [facility] No Panel InformationOrdered By: Mica Sauceda on 05-27-2024 [facility] CREATININEon 05-12-2024 Creatinine [Mass/Vol] 0.92 mg/dL 0.55 - 1.02 mg/dL [facility] GFR/1.73 sq M.predicted CKD-EPI (S/P/Bld) [Vol rate/Area] >60 >=60 mL/min/1.73m 2 [facility] EGFR-NON AF SAUDI ARABIAN >60 >=6 0 mL/min/1.73m 2 [facility] CBC AUTO DIFFon 12-06-2022 BASO # 0.0 103/ul Normal 0.0-0.1 [facility] Comment on above: Performed By: #### C BC #### [facility] [address] [place] [address] Dr. Ashlie Hills Basophils/100 WBC (Bld) 0.1 % Critically low 0.2-2.0 [facility] Comment on above: Performed By: #### C BC #### [facility] [address] [place] [address] Dr. Ashlie Hills EO # 0.0 103/ul Normal 0.0-0.7 [facility] Comment on above: Performed By: #### C BC #### [facility] [address] [place] [address] Dr. Ashlie Hills Eosinophils/100 WBC (Bld) 0.0 % Critically low 0.9-7.0 [facility] Comment on above: Performed By: #### C BC #### [facility] [address] [place] [address] Dr. Ashlie Hills Erythrocyte distribution width (RBC) [Ratio] 14.9 % Normal 11.0-15.0 [facility] Comment on above: Performed By: #### C BC #### [facility] [address] [place] [address] Dr. Ashlie Hills Hematocrit (Bld) [Volume fraction] 46.2 % Normal 36.0-48.0 [facility] Comment on above: Performed By: #### C BC #### [facility] [address] [place] [address] Dr. Ashlie Hills Hemoglobin (Bld) [Mass/Vol] 14.7 g/dL Normal 12.0-16.0 [facility] Comment on above: Performed By: #### C BC #### [facility] [address] [place] [address] Dr. Ashlie Hills IG # 0.06 10e3/ul Critically high 0.00-0.03 [facility] Comment on above: Performed By: #### C BC #### [facility] [address] [place] [address] Dr. Ashlie Hills IG % 0.4 % Normal 0.0-0.5 [facility] Comment on above: Performed By: #### C BC #### [facility] [address] [place] [address] Dr. Ashlie Hills LYMPH # 1.3 103/ul Normal 1.2-3.8 [facility] Comment on above: Performed By: #### C BC #### [facility] [address] [place] [address] Dr. Ashlie Hills Lymphocytes/100 WBC (Bld) 9.4 % Critically low 20.5-60.0 [facility] Comment on above: Performed By: #### C BC #### [facility] [address] [place] [address] Dr. Ashlie Hills MANUAL DIFF REQ NO Normal [facility] Comment on above: Performed By: #### C BC #### [facility] [address] [place] [address] Dr. Ashlie Hills MCH (RBC) [Entitic mass] 28.4 pg Normal 26.7-34.0 [facility] Comment on above: Performed By: #### C BC #### [facility] [address] [place] [address] Dr. Ashlie Hills MCHC (RBC) [Mass/Vol] 31.8 g/dL Normal 29.9-35.2 [facility] Comment on above: Performed By: #### C BC #### [facility] [address] [address] [address] Ashlie Hills MCV (RBC) [Entitic vol] 89.4 fL Normal 81.0-99.0 [facility] Comment on above: Performed By: #### C BC #### [facility] [address] [address] [address] Ashlie Hills MONO # 0.5 103/ul Normal 0.3-0.8 [facility] Comment on above: Performed By: #### C BC #### [facility] [address] [place] [address] Dr. Ashlie Hills Monocytes/100 WBC (Bld) 3.4 % Normal 1.7-12.0 [facility] Comment on above: Performed By: #### C BC #### [facility] [address] [place] [address] Dr. Ashlie Hills NEUT # 11.8 103/ul Critically high 1.4-6.5 [facility] Comment on above: Performed By: #### C BC #### [facility] [address] [place] [address] Dr. Ashlie Hills Neutrophils/100 WBC (Bld) 86.7 % Critically high 43.0-75.0 [facility] Comment on above: Performed By: #### C BC #### [facility] [address] [place] [address] Dr. Ashlie Hills Platelet mean volume (Bld) [Entitic vol] 12.6 fL Normal 9.5-13.5 [facility] Comment on above: Performed By: #### C BC #### [facility] [address] [place] [address] Dr. Ashlie Hills PLT 133 103/ul Critically low 150-450 [facility] Comment on above: Performed By: #### C BC #### [facility] [address] [place] [address] Dr. Ashlie Hills RBC 5.17 106/ul Normal 4.20-5.40 [facility] Comment on above: Performed By: #### C BC #### [facility] [address] [address] [address] Ashlie Hills WBC 13.6 103/ul Critically high 4.0-11.0 [facility] Comment on above: Performed By: #### C BC #### [facility] [address] [place] [address] Dr. Ashlie Hills MAGNESIUMon 12-06-2022 Magnesium [Mass/Vol] 2.2 mg/dL Normal 1.8-2.4 [facility] Comment on above: Performed By: #### I NFLUAB #### [facility] [address] [place] [address] Dr. Ashlie Hills POINT OF CARE GLUCOSEon 11-08 Glucose [Mass/Vol] 340 mg/dL Critically high -106 [facility] Comment on above: Performed By: #### P OCGLUC #### [facility] [address] [place] [address] Dr. Ashlie Hills Glucose [Mass/Vol] 276 mg/dL Critically high [facility]106 [facility] Comment on above: Performed By: #### C BC #### [facility] [address] [place] [address] Dr. Ashlie Hills Glucose [Mass/Vol] 333 mg/dL Critically high [facility]106 [facility] Comment on above: Performed By: #### C BC #### [facility] [address] [place] [address] Dr. Ashlie Hills PROF CHEM 8 (BAS METB)on Anion gap [Moles/Vol] 10.9 mmol/L Normal [facility] Comment on above: Performed By: #### I NFLUAB #### [facility] [address] [place] [address] Dr. Ashlie Hills Calcium [Mass/Vol] 9.3 mg/dL Normal 8.5-10.1 [facility] Comment on above: Performed By: #### I NFLUAB #### [facility] [address] [place] [address] Dr. Ashlie Hills Chloride [Moles/Vol] 103 mmol/L Normal 98-107 [facility] Comment on above: Performed By: #### I NFLUAB #### [facility] [address] [place] [address] Dr. Ashlie Hills CO2 [Moles/Vol] 31.2 mmol/L Normal 21.0-32.0 [facility] Comment on above: Performed By: #### I NFLUAB #### [facility] [address] [place] [address] Dr. Ashlie Hills Creatinine [Mass/Vol] 0.96 mg/dL Normal 0.55-1.02 [facility] Comment on above: Performed By: #### I NFLUAB #### [facility] [address] [place] [address] Dr. Ashlie Hills EGFR-AF SAUDI ARABIAN >60 Normal >=60 [facility] Comment on above: Performed By: #### I NFLUAB #### [facility] [address] [place] [address] Dr. Ahslie Hills EGFR-NON AF SAUDI ARABIAN >60 Normal >=60 [facility] Comment on above: Performed By: #### I NFLUAB #### [facility] [address] [place] [address] Dr. Ashlie Hills Glucose [Mass/Vol] 288 mg/dL Critically high 74-106 [facility] Comment on above: Performed By: #### I NFLUAB #### [facility] [address] [place] [address] Dr. Ashlie Hills Potassium [Moles/Vol] 5.1 mmol/L Normal 3.5-5.1 [facility] Comment on above: Performed By: #### I NFLUAB #### [facility] [address] [place] [address] Dr. sAhlie Hills Sodium [Moles/Vol] 140 mmol/L Normal 136-145 [facility] Comment on above: Performed By: #### I NFLUAB #### [facility] [address] [place] [address] Dr. Ashlie Hills Urea nitrogen [Mass/Vol] 30.0 mg/dL Critically high 7.0-18 .0 [facility] Comment on above: Performed By: #### I NFLUAB #### [facility] [address] [place] [address] Dr. Ashlie Hills Urea nitrogen/Creatinine [Mass ratio] 31.2 mg/mg Normal [facility] Comment on above: Performed By: #### I NFLUAB #### [facility] [address] [place] [address] Dr. Ashlie Hills CBC AUTO DIFFon 12-05-2022 BASO # 0.0 103/ul Normal 0.0-0.1 [facility] Comment on above: Performed By: #### C BC #### [facility] [address] [place] [address] Dr. Ashlie Hills Basophils/100 WBC (Bld) 0.4 % Normal 0.2-2.0 [facility] Comment on above: Performed By: #### C BC #### [facility] [address] [place] [address] Dr. Ashlie Hills EO # 0.0 103/ul Normal 0.0-0.7 [facility] Comment on above: Performed By: #### C BC #### [facility] [address] [place] [address] Dr. Ashlie Hills Eosinophils/100 WBC (Bld) 0.0 % Critically low 0.9-7.0 [facility] Comment on above: Performed By: #### C BC #### [facility] [address] [place] [address] Dr. Ashlie Hills Erythrocyte distribution width (RBC) [Ratio] 14.8 % Normal 11.0-15.0 [facility] Comment on above: Performed By: #### C BC #### [facility] [address] [place] [address] Dr. Ashlie Hills Hematocrit (Bld) [Volume fraction] 49.9 % Critically high 36.0-48.0 [facility] Comment on above: Performed By: #### C BC #### [facility] [address] [place] [address] Dr. Ashlie Hills Hemoglobin (Bld) [Mass/Vol] 15.7 g/dL Normal 12.0-16.0 [facility] Comment on above: Performed By: #### C BC #### [facility] [address] [place] [address] Dr. Ashlie Hills IG # 0.04 10e3/ul Critically high 0.00-0.03 [facility] Comment on above: Performed By: #### C BC #### [facility] [address] [place] [address] Dr. Ashlie Hills IG % 0.5 % Normal 0.0-0.5 [facility] Comment on above: Performed By: #### C BC #### [facility] [address] [place] [address] Dr. Ashlie Hills LYMPH # 1.1 103/ul Critically low 1.2-3.8 [facility] Comment on above: Performed By: #### C BC #### [facility] [address] [place] [address] Dr. Ashlie Hills Lymphocytes/100 WBC (Bld) 12.7 % Critically low 20.5-60.0 [facility] Comment on above: Performed By: #### C BC #### [facility] [address] [place] [address] Dr. Ashlie Hills MANUAL DIFF REQ NO Normal [facility] Comment on above: Performed By: #### C BC #### [facility] [address] [place] [address] Dr. Ashlie Hills MCH (RBC) [Entitic mass] 28.1 pg Normal 26.7-34.0 [facility] Comment on above: Performed By: #### C BC #### [facility] [address] [place] [address] Dr. Ashlie Hills MCHC (RBC) [Mass/Vol] 31.5 g/dL Normal 29.9-35.2 [facility] Comment on above: Performed By: #### C BC #### [facility] [address] [place] [address] Dr. Ashlie Hills MCV (RBC) [Entitic vol] 89.3 fL Normal 81.0-99.0 [facility] Comment on above: Performed By: #### C BC #### [facility] [address] [place] [address] Dr. Ashlie Hills MONO # 0.1 103/ul Critically low 0.3-0.8 [facility] Comment on above: Performed By: #### C BC #### [facility] [address] [place] [address] Dr. Ashlie Hills Monocytes/100 WBC (Bld) 1.3 % Critically low 1.7-12.0 [facility] Comment on above: Performed By: #### C BC #### [facility] [address] [place] [address] Dr. Ashlie Hills NEUT # 7.2 103/ul Critically high 1.4-6.5 [facility] Comment on above: Performed By: #### C BC #### [facility] [address] [place] [address] Dr. Ashlie Hills Neutrophils/100 WBC (Bld) 85.1 % Critically high 43.0-75.0 [facility] Comment on above: Performed By: #### C BC #### [facility] [address] [place] [address] Dr. Ashlie Hills Platelet mean volume (Bld) [Entitic vol] 12.2 fL Normal 9.5-13.5 [facility] Comment on above: Performed By: #### C BC #### [facility] [address] [place] [address] Dr. Ashlie Hills PLT 116 103/ul Critically low 150-450 [facility] Comment on above: Performed By: #### C BC #### [facility] [address] [place] [address] Dr. Ashlie Hills RBC 5.59 106/ul Critically high 4.20-5.40 [facility] Comment on above: Performed By: #### C BC #### [facility] [address] [place] [address] Dr. Ashlie Hills WBC 8.5 103/ul Normal 4.0-11.0 [facility] Comment on above: Performed By: #### C BC #### [facility] [address] [place], [place] [address] Dr. Ashlie Hilsl CTA CHEST WO W CONon 023 CTA [...] HATTIE GOFF Date: 2022-12-05 01:52 Normal [facility] MAGNESIUMon 12-05-2022 Magnesium [Mass/Vol] 2.1 mg/dL Normal 1.8-2.4 [facility] Comment on above: Performed By: #### P OCGLUC #### [facility] [address] [place], [place] [address] Dr. Ashlie Hills POINT OF CARE GLUCOSEon 11-08 Glucose [Mass/Vol] 293 mg/dL Critically high 74-106 [facility] Comment on above: Performed By: #### P OCGLUC #### [facility] [address] [place] [address] Dr. Ashlie Hills Glucose [Mass/Vol] 269 mg/dL Critically high 74-106 [facility] Comment on above: Performed By: #### P OCGLUC #### [facility] [address] [address] [address] Ashlie Hills Glucose [Mass/Vol] 223 mg/dL Critically high 74-106 [facility] Comment on above: Performed By: #### C VDAGS #### [facility] [address] [place] [address] Dr. Ashlie Hills PROF CHEM 8 (BAS METB)on Anion gap [Moles/Vol] 11.6 mmol/L Normal [facility] Comment on above: Performed By: #### P OCGLUC #### [facility] [address] [place] [address] Dr. Ashlie Hills Calcium [Mass/Vol] 9.2 mg/dL Normal 8.5-10.1 [facility] Comment on above: Performed By: #### P OCGLUC #### [facility] [address] [place] [address] Dr. Ashlie Hills Chloride [Moles/Vol] 102 mmol/L Normal 98-107 [facility] Comment on above: Performed By: #### P OCGLUC #### [facility] [address] [place] [address] Dr. Ashlie Hills CO2 [Moles/Vol] 28.7 mmol/L Normal 21.0-32.0 [facility] Comment on above: Performed By: #### P OCGLUC #### [facility] [address] [place] [address] Dr. Ashlie Hills Creatinine [Mass/Vol] 1.04 mg/dL Critically high 0.55-1.02 [facility] Comment on above: Performed By: #### P OCGLUC #### [facility] [address] [place], [place] [id number] Dr. Ashlie Hills EGFR-AF SAUDI ARABIAN >60 Normal >=60 [facility] Comment on above: Performed By: #### P OCGLUC #### [facility] [address] [address] [address] Ashlie Hills EGFR-NON AF SAUDI ARABIAN 56 mL/min/1.73m2 Critically low >=60 [facility] Comment on above: Performed By: #### P OCGLUC #### [facility] [address] [address] [address] Ashlie Hills Glucose [Mass/Vol] 231 mg/dL Critically high 74-106 [facility] Comment on above: Performed By: #### P OCGLUC #### [facility] [address] [address] [address] Ashlie Hills Potassium [Moles/Vol] 4.3 mmol/L Normal 3.5-5.1 [facility] Comment on above: Performed By: #### P OCGLUC #### [facility] [address] [address] [address] Ashlie Hills Sodium [Moles/Vol] 138 mmol/L Normal 136-145 [facility] Comment on above: Performed By: #### P OCGLUC #### [facility] [address] [address] [address] Ashlie Hills Urea nitrogen [Mass/Vol] 17.0 mg/dL Normal 7.0-18.0 [facility] Comment on above: Performed By: #### P OCGLUC #### [facility] [address] [address] [address] Ashlie Hills Urea nitrogen/Creatinine [Mass ratio] 16.3 mg/mg Normal [facility] Comment on above: Performed By: #### P OCGLUC #### [facility] [address] [place] [address] Dr. Ashlie Hills RESPIRATORY PANEL PLUSon Adenovirus Not detected Normal NOT DETECTED [facility] Comment on above: Performed By: #### C VDAGS #### [facility] [address] [place] [address] Dr. Ashlie Hills B. Parapertusis Not detected Normal NOT DETECTED [facility] Comment on above: Performed By: #### C VDAGS #### [facility] [address] [place] [address] Dr. Ashlie Shaffer. Pertussis Not detected Normal NOT DETECTED [facility] Comment on above: Performed By: #### C VDAGS #### [facility] [address] [place] [address] Dr. Ashlie Hills Chlamydia Pneumoniae Not detected Normal NOT DETECTED [facility] Comment on above: Performed By: #### C VDAGS #### [facility] [address] [place] [address] Dr. Ashlie Hills Coronavirus 229E Not detected Normal NOT DETECTED [facility] Comment on above: Performed By: #### C VDAGS #### [facility] [address] [place] [address] Dr. Ashlie Hills Coronavirus HKU1 Not detected Normal NOT DETECTED [facility] Comment on above: Performed By: #### C VDAGS #### [facility] [address] [place] [address] Dr. Ashlie Hills Coronavirus NL63 Not detected Normal NOT DETECTED [facility] Comment on above: Performed By: #### C VDAGS #### [facility] [address] [place] [address] Dr. Ashlie Hills Coronavirus OC43 Not detected Normal NOT DETECTED [facility] Comment on above: Performed By: #### C VDAGS #### [facility] [address] [place] [address] Dr. Ashlie Hills Influenza A H1 Not detected Normal NOT DETECTED [facility] Comment on above: Performed By: #### C VDAGS #### [facility] [address] [place] [address] Dr. Ashlie Hills Influenza A H1 2009 Not detected Normal NOT DETECTED [facility] Comment on above: Performed By: #### C VDAGS #### [facility] [address] [place] [address] Dr. Ashlie Hills Influenza A H3 Not detected Normal NOT DETECTED [facility] Comment on above: Performed By: #### C VDAGS #### [facility] [address] [address] [address] Ashlie Hills Influenza B Not detected Normal NOT DETECTED [facility] Comment on above: Performed By: #### C VDAGS #### [facility] [address] [address] [address] Ashlie Hills Metapneumovirus Not detected Normal NOT DETECTED [facility] Comment on above: Performed By: #### C VDAGS #### [facility] [address] [address] [address] Ashlie Hills Mycoplas. Pneumoniae Not detected Normal NOT DETECTED [facility] Comment on above: Performed By: #### C VDAGS #### [facility] [address] [address] [address] Ashlie Hills Parainfluenza 1 Not detected Normal NOT DETECTED [facility] Comment on above: Performed By: #### C VDAGS #### [facility] [address] [address] [address] Ashlie Hills Parainfluenza 2 Not detected Normal NOT DETECTED [facility] Comment on above: Performed By: #### C VDAGS #### [facility] [address] [place] [address] Dr. Ashlie Hills Parainfluenza 3 Detected Abnormal NOT DETECTED [facility] Comment on above: Performed By: #### C VDAGS #### [facility] [address] [address] [address] Ashlie Hills Parainfluenza 4 Not detected Normal NOT DETECTED [facility] Comment on above: Performed By: #### C VDAGS #### [facility] [address] [place] [address] Dr. Ashlie Hills Rhino/Enterovirus Not detected Normal NOT DETECTED [facility] Comment on above: Performed By: #### C VDAGS #### [facility] [address] [address] [address] Ashlie Hills RP2 Header 1 RESPIRATORY PANEL: VIRUSES Normal [facility] Comment on above: Performed By: #### C VDAGS #### [facility] [address] [place] [address] Dr. Ashlie Hills RP2 Header 2 RESPIRATORY PANEL: BACTERIA Normal [facility] Comment on above: Performed By: #### C VDAGS #### [facility] [address] [place] [address] Dr. Ashlie Hills RSV Not detected Normal NOT DETECTED [facility] Comment on above: Performed By: #### C VDAGS #### [facility] [address] [place] [address] Dr. Ashlie Hills SARS-CoV-2 (COVID-19) RNA MADDY+probe Ql (Unsp spec) Not detected Normal NOT DETECTED [facility] Comment on above: Performed By: #### C VDAGS #### [facility] [address] [place] [address] Dr. Ashlie Hills XR CHEST 1 Von [...] MARYANNE POWER Date: 2022-12-04 22:23 Normal [facility] BLOOD GASES BTYon 12-04-2022 02 MODE ROOM AIR Normal [facility] Comment on above: Performed By: #### C BC #### [facility] [address] [place] [address] Dr. Ashlie Hills ALLENS TEST Positive Normal [facility] Comment on above: Performed By: #### C BC #### [facility] [address] [place] [address] Dr. Ashlie Hills Base excess Calc (Bld) [Moles/Vol] 5.4 mmol/L Critically high -2.0-2.0 [facility] Comment on above: Performed By: #### C BC #### [facility] [address] [place] [address] Dr. Ashlie Hills BIPAP PRESSURE Normal [facility] Comment on above: Performed By: #### C BC #### [facility] [address] [address] [address] Ashlie Hills CPAP [facility] Comment on above: Performed By: #### C BC #### [facility] [address] [address] [address] Ashlie Hills FIO2 Normal [facility] Comment on above: Performed By: #### C BC #### [facility] [address] [address] [address] Ashlie Hills HCO3 (Bld) [Moles/Vol] 30.8 mmol/L Critically high 22.0-26 .0 [facility] Comment on above: Performed By: #### C BC #### [facility] [address] [place] [address] Dr. Ashlie Hills LPM [facility] Comment on above: Performed By: #### C BC #### [facility] [address] [address] [address] Ashlie Hills MINUTE VOLUME Normal [facility] Comment on above: Performed By: #### C BC #### [facility] [address] [address] [address] Ashlie Hills Oxygen (Bld) [Partial pressure] 46.3 mm[Hg] Critically low 80.0-100.0 [facility] Comment on above: Performed By: #### C BC #### [facility] [address] [address] [address] Ashlie Hills Oxygen saturation in Blood 83.9 % Critically low 95.0-100.0 [facility] Comment on above: Performed By: #### C BC #### [facility] [address] [address] [address] sAhlie Hills PCO2 54.2 mmHg Critically high 35.0-45.0 [facility] Comment on above: Performed By: #### C BC #### [facility] [address] [address] [address] Ashlie Hills PEEP [facility] Comment on above: Performed By: #### C BC #### [facility] [address] [place] [address] Dr. Ashlie Hills pH (Bld) 7.363 [pH] Normal 7.350-7.450 [facility] Comment on above: Performed By: #### C BC #### [facility] [address] [place] [address] Dr. Ashlie Hills PIP [facility] Comment on above: Performed By: #### C BC #### [facility] [address] [place] [address] Dr. Ashlie Hills PS [facility] Comment on above: Performed By: #### C BC #### [facility] [address] [place] [address] Dr. Ashlie Hills PUNCTURE SITE LR [facility] Comment on above: Performed By: #### C BC #### [facility] [address] [place] [address] Dr. Ashlie Hills [facility] Comment on above: Performed By: #### C BC #### [facility] [address] [place] [address] Dr. Ashlie Hills VENT MODE [facility] Comment on above: Performed By: #### C BC #### [facility] [address] [place] [address] Dr. Ashlie Hills [facility] Comment on above: Performed By: #### C BC #### [facility] [address] [place] [address] Dr. Ashlie Hills BNPon 12-04-2022 Natriuretic peptide B (Bld) [Mass/Vol] 76.0 pg/mL Normal <=900.0 [facility] Comment on above: Performed By: #### P OCGLUC #### [facility] [address] [place] [address] Dr. Ashlie Hills CBC AUTO DIFFon 12-04-2022 BASO # 0.1 103/ul Normal 0.0-0.1 [facility] Comment on above: Performed By: #### C BC #### [facility] [address] [place] [address] Dr. Ashlie Hills Basophils/100 WBC (Bld) 0.6 % Normal 0.2-2.0 [facility] Comment on above: Performed By: #### C BC #### [facility] [address] [place] [address] Dr. Ashlie Hills EO # 0.2 103/ul Normal 0.0-0.7 [facility] Comment on above: Performed By: #### C BC #### [facility] [address] [place] [address] Dr. Ashlie Hills Eosinophils/100 WBC (Bld) 1.9 % Normal 0.9-7.0 [facility] Comment on above: Performed By: #### C BC #### [facility] [address] [place] [address] Dr. Ashlie Hills Erythrocyte distribution width (RBC) [Ratio] 15.0 % Normal 11.0-15.0 [facility] Comment on above: Performed By: #### C BC #### [facility] [address] [place] [address] Dr. Ashlie Hills Hematocrit (Bld) [Volume fraction] 49.1 % Critically high 36.0-48.0 [facility] Comment on above: Performed By: #### C BC #### [facility] [address] [place] [address] Dr. Ashlie Hills Hemoglobin (Bld) [Mass/Vol] 15.6 g/dL Normal 12.0-16.0 [facility] Comment on above: Performed By: #### C BC #### [facility] [address] [place] [address] Dr. Ashlie Hills IG # 0.02 10e3/ul Normal 0.00-0.03 [facility] Comment on above: Performed By: #### C BC #### [facility] [address] [place] [address] Dr. Ashlie Hills IG % 0.2 % Normal 0.0-0.5 [facility] Comment on above: Performed By: #### C BC #### [facility] [address] [address] [address] Ashlie Hills LYMPH # 2.8 103/ul Normal 1.2-3.8 [facility] Comment on above: Performed By: #### C BC #### [facility] [address] [address] [address] Ashlie Hills Lymphocytes/100 WBC (Bld) 29.9 % Normal 20.5-60.0 [facility] Comment on above: Performed By: #### C BC #### [facility] [address] [place] [address] Dr. Ashlie Hills MANUAL DIFF REQ NO Normal [facility] Comment on above: Performed By: #### C BC #### [facility] [address] [place] [address] Dr. Ashlie Hills MCH (RBC) [Entitic mass] 28.5 pg Normal 26.7-34.0 [facility] Comment on above: Performed By: #### C BC #### [facility] [address] [place] [address] Dr. Ashlie Hills MCHC (RBC) [Mass/Vol] 31.8 g/dL Normal 29.9-35.2 [facility] Comment on above: Performed By: #### C BC #### [facility] [address] [place] [address] Dr. Ashlie Hills MCV (RBC) [Entitic vol] 89.8 fL Normal 81.0-99.0 [facility] Comment on above: Performed By: #### C BC #### [facility] [address] [place] [address] Dr. Ashlie Hills MONO # 1.0 103/ul Critically high 0.3-0.8 [facility] Comment on above: Performed By: #### C BC #### [facility] [address] [place] [address] Dr. Ashlie Hills Monocytes/100 WBC (Bld) 10.6 % Normal 1.7-12.0 [facility] Comment on above: Performed By: #### C BC #### [facility] [address] [address] [address] Ashlie Hills NEUT # 5.3 103/ul Normal 1.4-6.5 [facility] Comment on above: Performed By: #### C BC #### [facility] [address] [address] [address] Ashlie Hills Neutrophils/100 WBC (Bld) 56.8 % Normal 43.0-75.0 [facility] Comment on above: Performed By: #### C BC #### [facility] [address] [place] [address] Dr. Ashlie Hills Platelet mean volume (Bld) [Entitic vol] 12.5 fL Normal 9.5-13.5 [facility] Comment on above: Performed By: #### C BC #### [facility] [address] [place] [address] Dr. Ashlie Hills PLT 109 103/ul Critically low 150-450 [facility] Comment on above: Performed By: #### C BC #### [facility] [address] [place] [address] Dr. Ashlie Hills RBC 5.47 106/ul Critically high 4.20-5.40 [facility] Comment on above: Performed By: #### C BC #### [facility] [address] [place] [address] Dr. Ashlie Hills WBC 9.4 103/ul Normal 4.0-11.0 [facility] Comment on above: Performed By: #### C BC #### [facility] [address] [place] [address] Dr. Ashlie Hills PROF 14(COMP METB)on 023 Albumin [Mass/Vol] 2.9 g/dL Critically low 3.4-5.0 [facility] Comment on above: Performed By: #### C BC #### [facility] [address] [place] [address] Dr. Ashlie Hills Albumin/Globulin [Mass ratio] 0.6 {ratio} Normal [facility] Comment on above: Performed By: #### C BC #### [facility] [address] [place], [place] [id number] Dr. Ashlie Hills ALP [Catalytic activity/Vol] 64 U/L Normal 46-116 [facility] Comment on above: Performed By: #### C BC #### [facility] [address] [place] [address] Dr. Ashlie Hills ALT [Catalytic activity/Vol] 16 U/L Normal 14-59 [facility] Comment on above: Performed By: #### C BC #### [facility] [address] [place] [address] Dr. Ashlie Hills Anion gap [Moles/Vol] 9.6 mmol/L Normal [facility] Comment on above: Performed By: #### C BC #### [facility] [address] [place] [address] Dr. Ashlie Hills AST [Catalytic activity/Vol] 16 U/L Normal 15-37 [facility] Comment on above: Performed By: #### C BC #### [facility] [address] [place] [address] Dr. Ashlie Hills Bilirubin [Mass/Vol] 0.5 mg/dL Normal 0.2-1.0 [facility] Comment on above: Performed By: #### C BC #### [facility] [address] [place] [address] Dr. Ashlie Hills Calcium [Mass/Vol] 8.7 mg/dL Normal 8.5-10.1 [facility] Comment on above: Performed By: #### C BC #### [facility] [address] [place] [address] Dr. Ashlie Hills Chloride [Moles/Vol] 103 mmol/L Normal 98-107 [facility] Comment on above: Performed By: #### C BC #### [facility] [address] [place] [address] Dr. Ashlie Hills CO2 [Moles/Vol] 30.7 mmol/L Normal 21.0-32.0 [facility] Comment on above: Performed By: #### C BC #### [facility] [address] [place] [address] Dr. Ashlie Hills Creatinine [Mass/Vol] 0.96 mg/dL Normal 0.55-1.02 [facility] Comment on above: Performed By: #### C BC #### [facility] [address] [address] [address] Ashlie Hills EGFR-AF SAUDI ARABIAN >60 Normal >=60 [facility] Comment on above: Performed By: #### C BC #### [facility] [address] [address] [address] Ashlie Hills EGFR-NON AF SAUDI ARABIAN >60 Normal >=60 [facility] Comment on above: Performed By: #### C BC #### [facility] [address] [address] [address] Ashlie Hills Globulin (S) [Mass/Vol] 4.7 g/dL Normal [facility] Comment on above: Performed By: #### C BC #### [facility] [address] [place] [address] Dr. Ashlie Hills Glucose [Mass/Vol] 170 mg/dL Critically high 74-106 [facility] Comment on above: Performed By: #### C BC #### [facility] [address] [address] [address] Ashlie Hills Potassium [Moles/Vol] 4.3 mmol/L Normal 3.5-5.1 [facility] Comment on above: Performed By: #### C BC #### [facility] [address] [place] [address] Dr. Ashlie Hills Protein [Mass/Vol] 7.6 g/dL Normal 6.4-8.2 [facility] Comment on above: Performed By: #### C BC #### [facility] [address] [place] [address] Dr. Ashlie Hills Sodium [Moles/Vol] 139 mmol/L Normal 136-145 [facility] Comment on above: Performed By: #### C BC #### [facility] [address] [place] [address] Dr. Ashlie Hills Urea nitrogen [Mass/Vol] 16.0 mg/dL Normal 7.0-18.0 [facility] Comment on above: Performed By: #### C BC #### [facility] [address] [place] [address] Dr. Ashlie Hills Urea nitrogen/Creatinine [Mass ratio] 16.7 mg/mg Normal [facility] Comment on above: Performed By: #### C BC #### [facility] [address] [place] [address] Dr. Ashlie Hills SYMPTOMATIC COVID-19 ANTIGEN on 12-04-2022 EUA Statement SEE BELOW Normal [facility] Comment on [...] sooner. Performed By: #### C VDAGS #### [facility] [address] [place] [address] Dr. Ashlie Hills SARS-CoV-2 (COVID-19) RNA MADDY+probe Ql (Unsp spec) Negative Normal NEGATIVE [facility] Comment on above: Performed By: #### C VDAGS #### [facility] [address] [place] [address] Dr. Ashlie Hills TROPONIN, HIGH SENSITIVITYon 12-04-2022 HSTROP 8.9 pg/mL Normal 4.0-51.3 [facility] Comment on above: Result Comment: CUT- OFF POINTS HAVE BEEN ESTABLISHED BASED ON THE FOURTH UNIVERSAL DEFINITIONS OF MYOCARDIAL INFARCTION. THE UPPER REFERENCE LIMIT (URL) OF TROPONIN, DEFINED THE 99TH PERCENTILE OF cTnI DISTRIBUTION IN A REFERENCE POPULATION, HAS BEEN CONFIRMED THE DECISION THRESHOLD FOR CA DIAGNOSIS. Performed By: #### P OCGLUC #### [facility] [address] [place] [address] Dr. Ashlie Hills MICROALBUMIN, RAND URon 11-06 mALB 35.8 mg/dL Critically high <=30.0 [facility] Comment on above: Performed By: #### C VDAGS #### [facility] [address] [place] [address] Dr. Ashlie Hills UA RANDOM W/MICROSCOPICon BACTERIA NONE SEEN Normal NONE SEEN [facility] Comment on above: Performed By: #### C VDAGS #### [facility] [address] [place] [address] Dr. Ashlie Hills Bilirubin Ql (U) Negative Normal NEGATIVE [facility] Comment on above: Performed By: #### C VDAGS #### [facility] [address] [place] [address] Dr. Ashlie Hills CAST SEEN Abnormal NONE SEEN [facility] Comment on above: Performed By: #### C VDAGS #### [facility] [address] [place] [address] Dr. Ashlie Hills Clarity (U) CLEAR Normal CLEAR [facility] Comment on above: Performed By: #### C VDAGS #### [facility] [address] [place] [address] Dr. Ashlie Hills Color (U) YELLOW Normal YELLOW [facility] Comment on above: Performed By: #### C VDAGS #### [facility] [address] [place] [address] Dr. Ashlie Hills Crystals LM Nom (Urine sed) NONE SEEN Normal NONE SEEN [facility] Comment on above: Performed By: #### C VDAGS #### [facility] [address] [place] [address] Dr. Ashlie Hills Epithelial cells LM Ql (Urine sed) MODERATE Abnormal NONE SEEN /RARE [facility] Comment on above: Performed By: #### C VDAGS #### [facility] [address] [place] [address] Dr. Ashlie Hills Glucose Ql (U) Negative Normal NEGATIVE [facility] Comment on above: Performed By: #### C VDAGS #### [facility] [address] [place] [address] Dr. Ashlie Hills Hemoglobin Ql (U) TRACE-INTACT Abnormal NEGATIVE [facility] Comment on above: Performed By: #### C VDAGS #### [facility] [address] [place] [address] Dr. Ashlie Hills Ketones Ql (U) Negative Normal NEGATIVE [facility] Comment on above: Performed By: #### C VDAGS #### [facility] [address] [place] [address] Dr. Ashlie Hills LEUKOCYTES Negative Normal NEGATIVE [facility] Comment on above: Performed By: #### C VDAGS #### [facility] [address] [place] [address] Dr. Ashlie Hills MUCOUS NONE SEEN Normal NONE SEEN [facility] Comment on above: Performed By: #### C VDAGS #### [facility] [address] [place] [address] Dr. Ashlie Hills Nitrite Ql (U) Negative Normal NEGATIVE [facility] Comment on above: Performed By: #### C VDAGS #### [facility] [address] [place] [address] Dr. Ashlie Hills pH (U) 5.0 [pH] Normal 5-9 [facility] Comment on above: Performed By: #### C VDAGS #### [facility] [address] [place] [address] Dr. Ashlie Hills RBC 0-2 Normal 0-2 [facility] Comment on above: Performed By: #### C VDAGS #### [facility] [address] [place] [address] Dr. Ashlie Hills SPEC GRAVITY 1.030 Abnormal 1.005-<=1.02 5 [facility] [facility] Comment on above: Performed By: #### C VDAGS #### [facility] [address] [place] [address] Dr. Ashlie Hills UA PROTEIN 100 mg/dl Abnormal NEGATIVE/ TRACE [facility] Comment on above: Performed By: #### C VDAGS #### [facility] [address] [place] [address] Dr. Ashlie Hills Urobilinogen Qn (U) 0.2 {Little'U}/dL Normal 0.2 - 1. 0 [facility] Comment on above: Performed By: #### C VDAGS #### [facility] [address] [place] [address] Dr. Ashlie Hills WBC NONE SEEN Normal NONE SEEN [facility] Comment on above: Performed By: #### C VDAGS #### [facility] [address] [place] [address] Dr. Ashlie Hills CBC AUTO DIFFon 11-22-2022 BASO # 0.0 103/ul Normal 0.0-0.1 [facility] Comment on above: Performed By: #### C BC #### [facility] [address] [place] [address] Dr. Ashlie Hills Basophils/100 WBC (Bld) 0.3 % Normal 0.2-2.0 [facility] Comment on above: Performed By: #### C BC #### [facility] [address] [place] [address] Dr. Ashlie Hills EO # 0.4 103/ul Normal 0.0-0.7 [facility] Comment on above: Performed By: #### C BC #### [facility] [address] [place] [address] Dr. Ashlie Hills Eosinophils/100 WBC (Bld) 3.0 % Normal 0.9-7.0 [facility] Comment on above: Performed By: #### C BC #### [facility] [address] [place] [address] Dr. Ashlie Hills Erythrocyte distribution width (RBC) [Ratio] 15.3 % Critically high 11.0-15.0 [facility] Comment on above: Performed By: #### C BC #### [facility] [address] [place] [address] Dr. Ashlie Hills Hematocrit (Bld) [Volume fraction] 52.4 % Critically high 36.0-48.0 [facility] Comment on above: Performed By: #### C BC #### [facility] [address] [address] [address] Ashlie Hills Hemoglobin (Bld) [Mass/Vol] 16.8 g/dL Critically high 12.0-16.0 [facility] Comment on above: Performed By: #### C BC #### [facility] [address] [place] [address] Dr. Ashlie Hills IG # 0.04 10e3/ul Critically high 0.00-0.03 [facility] Comment on above: Performed By: #### C BC #### [facility] [address] [place] [address] Dr. Ashlie Hills IG % 0.3 % Normal 0.0-0.5 [facility] Comment on above: Performed By: #### C BC #### [facility] [address] [place] [address] Dr. Ashlie Hills LYMPH # 4.5 103/ul Critically high 1.2-3.8 [facility] Comment on above: Performed By: #### C BC #### [facility] [address] [place] [address] Dr. Ashlie Hills Lymphocytes/100 WBC (Bld) 33.2 % Normal 20.5-60.0 [facility] Comment on above: Performed By: #### C BC #### [facility] [address] [place] [address] Dr. Ashlie Hills MANUAL DIFF REQ NO Normal [facility] Comment on above: Performed By: #### C BC #### [facility] [address] [place] [address] Dr. Ashlie Hills MCH (RBC) [Entitic mass] 28.0 pg Normal 26.7-34.0 [facility] Comment on above: Performed By: #### C BC #### [facility] [address] [place] [address] Dr. Ashlie Hills MCHC (RBC) [Mass/Vol] 32.1 g/dL Normal 29.9-35.2 [facility] Comment on above: Performed By: #### C BC #### [facility] [address] [address] [address] Ashlie Hills MCV (RBC) [Entitic vol] 87.3 fL Normal 81.0-99.0 [facility] Comment on above: Performed By: #### C BC #### [facility] [address] [address] [address] Ashlie Hills MONO # 0.8 103/ul Normal 0.3-0.8 [facility] Comment on above: Performed By: #### C BC #### [facility] [address] [address] [address] Ashlie Hills Monocytes/100 WBC (Bld) 5.7 % Normal 1.7-12.0 [facility] Comment on above: Performed By: #### C BC #### [facility] [address] [place] [address] Dr. Ashlie Hills NEUT # 7.8 103/ul Critically high 1.4-6.5 [facility] Comment on above: Performed By: #### C BC #### [facility] [address] [place] [address] Dr. Ashlie Hills Neutrophils/100 WBC (Bld) 57.5 % Normal 43.0-75.0 [facility] Comment on above: Performed By: #### C BC #### [facility] [address] [place] [address] Dr. Ashlie Hills Platelet mean volume (Bld) [Entitic vol] 12.0 fL Normal 9.5-13.5 [facility] Comment on above: Performed By: #### C BC #### [facility] [address] [place] [address] Dr. Ashlie Hills PLT 152 103/ul Normal 150-450 [facility] Comment on above: Performed By: #### C BC #### [facility] [address] [place] [address] Dr. Ashlie Hills RBC 6.00 106/ul Critically high 4.20-5.40 [facility] Comment on above: Performed By: #### C BC #### [facility] [address] [address] [address] Ashlie Hills WBC 13.6 103/ul Critically high 4.0-11.0 [facility] Comment on above: Performed By: #### C BC #### [facility] [address] [address] [address] Ashlie Hills LIPID PROFILEon 11-22-2022 CHOL-HDL RATIO NORM SEE BELOW Normal [facility] Comment on above: Result Comment: 3.3 - 4.4 LOW RISK 4.4 - 7.1 AVERAGE RISK 7.1 - 11.0 MODERATE RISK >11.0 HIGH RISK Performed By: #### C BC #### [facility] [address] [address] [address] Ashlie Hills Cholesterol [Mass/Vol] 139 mg/dL Normal <=200 [facility] Comment on above: Performed By: #### C BC #### [facility] [address] [address] [address] Ashlie Hills Cholesterol in HDL [Mass/Vol] 35 mg/dL Critically low 40-60 [facility] Comment on above: Performed By: #### C BC #### [facility] [address] [address] [address] Ashlie Hills Cholesterol in LDL [Mass/Vol] 67.4 mg/dL Normal [facility] Comment on above: Performed By: #### C BC #### [facility] [address] [address] [address] Ashlie Hills Cholesterol.total/Choles terol in HDL [Mass ratio] 4.0 {ratio} Normal [facility] Comment on above: Performed By: #### C BC #### [facility] [address] [address] [address] Ashlie Hills HDL NORMAL > or = 60 mg/dl - LOW CARDIOVASCULAR RISK <40 mg/dl - HIGH CARDIOVASCULAR RISK Normal [facility] Comment on above: Performed By: #### C BC #### [facility] [address] [address] [address] Ashlie Hills LDL CALC NORMAL SEE BELOW Normal [facility] Comment on above: Result Comment: <100 mg/dl OPTIMAL 100 - 129 mg/dl NEAR OR ABOVE OPTIMAL 130 - 159 mg/dl BORDERLINE HIGH 160 - 189 mg/dl HIGH >190 mg/dl VERY HIGH Performed By: #### C BC #### [facility] [address] [address] [address] Ashlie Hills Triglyceride [Mass/Vol] 183 mg/dL Critically high <=150 [facility] Comment on above: Performed By: #### C BC #### [facility] [address] [address] [address] Ashlie Hills VLDL CALC 36.6 mg/dL Normal [facility] Comment on above: Performed By: #### C BC #### [facility] [id number] Ashlie Hills MG MAMM SCREEN 3D ALEX CADon 11-22-2022 MG MAMM SCREEN 3D ALEX CAD Patient: MITZI MACIAS Exam Date: 11/22/2022 : 1970 Gender:F Ordering : SAYDA BLAS [facility] Admission #: [id number] Family : Order #: [id number] CLICK HERE TO VIEW EXAM RADIOLOGY REPORT [...] unknown cancer at age 75. LOCATION: [facility] BREAST COMPOSITION: Almost entirely fatty. [...] Veloz M.D. on 11/22/2022 at 12:09 Normal [facility] PROF 14(COMP METB)on 023 Albumin [Mass/Vol] 3.0 g/dL Critically low 3.4-5.0 [facility] Comment on above: Performed By: #### C BC #### [facility] [address] [place] [address] Dr. Ashlie Hills Albumin/Globulin [Mass ratio] 0.6 {ratio} Normal [facility] Comment on above: Performed By: #### C BC #### [facility] [address] [place] [address] Dr. Ashlie Hills ALP [Catalytic activity/Vol] 68 U/L Normal 46-116 [facility] Comment on above: Performed By: #### C BC #### [facility] [address] [place] [address] Dr. Ashlie Hills ALT [Catalytic activity/Vol] 14 U/L Normal 14-59 [facility] Comment on above: Performed By: #### C BC #### [facility] [address] [place] [address] Dr. Ashlie Hills Anion gap [Moles/Vol] 12.1 mmol/L Normal [facility] Comment on above: Performed By: #### C BC #### [facility] [address] [place] [address] Dr. Ashlie Hills AST [Catalytic activity/Vol] 9 U/L Critically low 15-37 [facility] Comment on above: Performed By: #### C BC #### [facility] [address] [place] [address] Dr. Ashlie Hills Bilirubin [Mass/Vol] 0.4 mg/dL Normal 0.2-1.0 [facility] Comment on above: Performed By: #### C BC #### [facility] [address] [place] [address] Dr. Ashlie Hills Calcium [Mass/Vol] 9.0 mg/dL Normal 8.5-10.1 [facility] Comment on above: Performed By: #### C BC #### [facility] [address] [place] [address] Dr. Ashlie Hills Chloride [Moles/Vol] 105 mmol/L Normal 98-107 [facility] Comment on above: Performed By: #### C BC #### [facility] [address] [place] [address] Dr. Ashlie Hills CO2 [Moles/Vol] 30.7 mmol/L Normal 21.0-32.0 [facility] Comment on above: Performed By: #### C BC #### [facility] [address] [place] [address] Dr. Ashlie Hills Creatinine [Mass/Vol] 0.77 mg/dL Normal 0.55-1.02 [facility] Comment on above: Performed By: #### C BC #### [facility] [address] [place] [address] Dr. Ashlie Hills EGFR-AF SAUDI ARABIAN >60 Normal >=60 [facility] Comment on above: Performed By: #### C BC #### [facility] [address] [place] [address] Dr. Ashlie Hills EGFR-NON AF SAUDI ARABIAN >60 Normal >=60 [facility] Comment on above: Performed By: #### C BC #### [facility] [address] [place] [address] Dr. Ashlie Hills Globulin (S) [Mass/Vol] 4.8 g/dL Normal [facility] Comment on above: Performed By: #### C BC #### [facility] [address] [place] [address] Dr. Ashlie Hills Glucose [Mass/Vol] 162 mg/dL Critically high 74-106 [facility] Comment on above: Performed By: #### C BC #### [facility] [address] [place] [address] Dr. Ashlie Hills Potassium [Moles/Vol] 3.8 mmol/L Normal 3.5-5.1 [facility] Comment on above: Performed By: #### C BC #### [facility] [address] [place] [address] Dr. Ashlie Hills Protein [Mass/Vol] 7.8 g/dL Normal 6.4-8.2 [facility] Comment on above: Performed By: #### C BC #### [facility] [address] [place] [address] Dr. Ashlie Hills Sodium [Moles/Vol] 144 mmol/L Normal 136-145 [facility] Comment on above: Performed By: #### C BC #### [facility] [address] [place] [address] Dr. Ashlie Hills Urea nitrogen [Mass/Vol] 24.0 mg/dL Critically high 7.0-18 .0 [facility] Comment on above: Performed By: #### C BC #### [facility] [address] [place] [address] Dr. Ashlie Hills Urea nitrogen/Creatinine [Mass ratio] 31.2 mg/mg Normal [facility] Comment on above: Performed By: #### C BC #### [facility] [address] [place] [address] Dr. Ashlie Hills CBC AUTO DIFFon 10-05-2022 BASO # 0.1 103/ul Normal 0.0-0.1 [facility] Comment on above: Performed By: #### C BC #### [facility] [address] [place] [address] Dr. Ashlie Hills Basophils/100 WBC (Bld) 0.6 % Normal 0.2-2.0 [facility] Comment on above: Performed By: #### C BC #### [facility] [address] [place] [address] Dr. Ashlie Hills EO # 0.3 103/ul Normal 0.0-0.7 [facility] Comment on above: Performed By: #### C BC #### [facility] [address] [place] [address] Dr. Ashlie Hills Eosinophils/100 WBC (Bld) 2.1 % Normal 0.9-7.0 [facility] Comment on above: Performed By: #### C BC #### [facility] [address] [address] [address] Ashlie Hills Erythrocyte distribution width (RBC) [Ratio] 15.9 % Critically high 11.0-15.0 [facility] Comment on above: Performed By: #### C BC #### [facility] [address] [place] [address] Dr. Ashlie Hills Hematocrit (Bld) [Volume fraction] 51.8 % Critically high 36.0-48.0 [facility] Comment on above: Performed By: #### C BC #### [facility] [address] [place] [address] Dr. Ashlie Hills Hemoglobin (Bld) [Mass/Vol] 16.6 g/dL Critically high 12.0-16.0 [facility] Comment on above: Performed By: #### C BC #### [facility] [address] [place] [address] Dr. Ashlie Hills IG # 0.03 10e3/ul Normal 0.00-0.03 [facility] Comment on above: Performed By: #### C BC #### [facility] [address] [place] [address] Dr. Ashlie Hills IG % 0.2 % Normal 0.0-0.5 [facility] Comment on above: Performed By: #### C BC #### [facility] [address] [place] [address] Dr. Ashlie Hills LYMPH # 3.9 103/ul Critically high 1.2-3.8 [facility] Comment on above: Performed By: #### C BC #### [facility] [address] [place] [address] Dr. Ashlie Hills Lymphocytes/100 WBC (Bld) 31.7 % Normal 20.5-60.0 [facility] Comment on above: Performed By: #### C BC #### [facility] [address] [place] [address] Dr. Ashlie Hills MANUAL DIFF REQ NO Normal [facility] Comment on above: Performed By: #### C BC #### [facility] [address] [address] [address] Ashlie Hills MCH (RBC) [Entitic mass] 27.9 pg Normal 26.7-34.0 [facility] Comment on above: Performed By: #### C BC #### [facility] [address] [place] [address] Dr. Ashlie Hills MCHC (RBC) [Mass/Vol] 32.0 g/dL Normal 29.9-35.2 [facility] Comment on above: Performed By: #### C BC #### [facility] [address] [place] [address] Dr. Ashlie Hills MCV (RBC) [Entitic vol] 87.1 fL Normal 81.0-99.0 [facility] Comment on above: Performed By: #### C BC #### [facility] [address] [place] [address] Dr. Ashlie Hills MONO # 0.7 103/ul Normal 0.3-0.8 [facility] Comment on above: Performed By: #### C BC #### [facility] [address] [place] [address] Dr. Ashlie Hills Monocytes/100 WBC (Bld) 5.8 % Normal 1.7-12.0 [facility] Comment on above: Performed By: #### C BC #### [facility] [address] [place] [address] Dr. Ashlie Hills NEUT # 7.3 103/ul Critically high 1.4-6.5 [facility] Comment on above: Performed By: #### C BC #### [facility] [address] [place] [address] Dr. Ashlie Hills Neutrophils/100 WBC (Bld) 59.6 % Normal 43.0-75.0 [facility] Comment on above: Performed By: #### C BC #### [facility] [address] [place] [address] Dr. Ashlie Hills Platelet mean volume (Bld) [Entitic vol] 11.7 fL Normal 9.5-13.5 [facility] Comment on above: Performed By: #### C BC #### [facility] [address] [place], [place] [address] Dr. Ashlie Hills PLT 117 103/ul Critically low 150-450 [facility] Comment on above: Performed By: #### C BC #### [facility] [address] [place], [place] [address] Dr. Ashlie Hills RBC 5.95 106/ul Critically high 4.20-5.40 [facility] Comment on above: Performed By: #### C BC #### [facility] [address] [place], [place] [address] Dr. Ashlie Hills WBC 12.3 103/ul Critically high 4.0-11.0 [facility] Comment on above: Performed By: #### C BC #### [facility] [address] [place], [place] [address] ABD/PELV W CONon [...] RICCO PICKARD Date: 2022-10-05 13:13 Normal [facility] ER URINE PROFILEon 3 Bilirubin Ql (U) Negative Normal NEGATIVE [facility] Comment on above: Performed By: #### P OCGLUC #### [facility] [address] [address] [address] Ashlie Hills Clarity (U) CLEAR Normal CLEAR [facility] Comment on above: Performed By: #### P OCGLUC #### [facility] [address] [address] [address] Ashlie Hills Color (U) YELLOW Normal YELLOW [facility] Comment on above: Performed By: #### P OCGLUC #### [facility] [address] [address] [address] Ashlie HOBBS A micrscopic examination will be performed if indicated. Normal [facility] Comment on above: Performed By: #### P OCGLUC #### [facility] [address] [place] [address] Dr. Ashlie Hills Glucose Ql (U) Negative Normal NEGATIVE [facility] Comment on above: Performed By: #### P OCGLUC #### [facility] [address] [address] [address] Ashlie Hills Hemoglobin Ql (U) Negative Normal NEGATIVE [facility] Comment on above: Performed By: #### P OCGLUC #### [facility] [address] [place] [address] Dr. Ashlie Hills Ketones Ql (U) Negative Normal NEGATIVE [facility] Comment on above: Performed By: #### P OCGLUC #### [facility] [address] [address] [address] Ashlie Hills LEUKOCYTES Negative Normal NEGATIVE [facility] Comment on above: Performed By: #### P OCGLUC #### [facility] [address] [address] [address] Ashlie Hills Nitrite Ql (U) Negative Normal NEGATIVE [facility] Comment on above: Performed By: #### P OCGLUC #### [facility] [address] [place] [address] Dr. Ashlie Hills pH (U) 6.0 [pH] Normal 5-9 [facility] Comment on above: Performed By: #### P OCGLUC #### [facility] [address] [address] [address] Ashlie Hills Protein (U) [Mass/Vol] 100 mg/dL Abnormal NEGAT YURY/ TRACE [facility] Comment on above: Performed By: #### P OCGLUC #### [facility] [address] [place] [address] Dr. Ashlie Hills SPEC GRAVITY 1.010 Normal 1.005-<=1.02 5 [facility] Comment on above: Performed By: #### P OCGLUC #### [facility] [address] [place] [address] Dr. Ashlie Hills UR MICRO IND INDICATED Normal [facility] Comment on above: Performed By: #### P OCGLUC #### [facility] [address] [place] [address] Dr. Ashlie Hills Urobilinogen Qn (U) 1.0 {Little'U}/dL Normal 0.2 - 1. 0 [facility] Comment on above: Performed By: #### P OCGLUC #### [facility] [address] [place] [address] Dr. Ashlie Hills LIPASEon 10-05-2022 Lipase [Catalytic activity/Vol] 1771.0 U/L Critically high 73.0-393.0 [facility] Comment on above: Performed By: #### C BC #### [facility] [address] [place] [address] Dr. Ashlie Hills PREG HCG QUALon 10-05-2022 , QUAL Negative Normal NEGATIVE [facility] Comment on above: Performed By: #### P OCGLUC #### [facility] [address] [place] [address] Dr. Ashlie Hills PROF 14(COMP METB)on 023 Albumin [Mass/Vol] 3.2 g/dL Critically low 3.4-5.0 [facility] Comment on above: Performed By: #### C BC #### [facility] [address] [place] [address] Dr. Ashlie Hills Albumin/Globulin [Mass ratio] 0.7 {ratio} Normal [facility] Comment on above: Performed By: #### C BC #### [facility] [address] [address] [address] Ashlie Hills ALP [Catalytic activity/Vol] 70 U/L Normal 46-116 [facility] Comment on above: Performed By: #### C BC #### [facility] [address] [address] [address] Ashlie Hills ALT [Catalytic activity/Vol] 11 U/L Critically low 14-59 [facility] Comment on above: Performed By: #### C BC #### [facility] [address] [address] [address] Ashlie Hills Anion gap [Moles/Vol] 10.3 mmol/L Normal [facility] Comment on above: Performed By: #### C BC #### [facility] [address] [address] [address] Ashlie Hills AST [Catalytic activity/Vol] 11 U/L Critically low 15-37 [facility] Comment on above: Performed By: #### C BC #### [facility] [address] [address] [address] Ashlie Hills Bilirubin [Mass/Vol] 0.9 mg/dL Normal 0.2-1.0 [facility] Comment on above: Performed By: #### C BC #### [facility] [address] [address] [address] Ashlie Hills Calcium [Mass/Vol] 9.3 mg/dL Normal 8.5-10.1 [facility] Comment on above: Performed By: #### C BC #### [facility] [address] [address] [address] Ashlie Hills Chloride [Moles/Vol] 105 mmol/L Normal 98-107 [facility] Comment on above: Performed By: #### C BC #### [facility] [address] [address] [address] Ashlie Hills CO2 [Moles/Vol] 30.6 mmol/L Normal 21.0-32.0 [facility] Comment on above: Performed By: #### C BC #### [facility] [address] [address] [address] Ashlie [place] Creatinine [Mass/Vol] 0.62 mg/dL Normal 0.55-1.02 [facility] Comment on above: Performed By: #### C BC #### [facility] [address] [address] [address] Ashlie Hills EGFR-AF SAUDI ARABIAN >60 Normal >=60 [facility] Comment on above: Performed By: #### C BC #### [facility] [address] [address] [address] Ashlie [place] EGFR-NON AF SAUDI ARABIAN >60 Normal >=60 [facility] Comment on above: Performed By: #### C BC #### [facility] [address] [place] [address] Dr. Ashlie Hills Globulin (S) [Mass/Vol] 4.6 g/dL Normal [facility] Comment on above: Performed By: #### C BC #### [facility] [address] [place] [address] Dr. Ashlie Hills Glucose [Mass/Vol] 85 mg/dL Normal 74-106 [facility] Comment on above: Performed By: #### C BC #### [facility] [address] [place] [address] Dr. Ashlie Hills Potassium [Moles/Vol] 3.9 mmol/L Normal 3.5-5.1 [facility] Comment on above: Performed By: #### C BC #### [facility] [address] [place] [address] Dr. Ashlie Hills Protein [Mass/Vol] 7.8 g/dL Normal 6.4-8.2 [facility] Comment on above: Performed By: #### C BC #### [facility] [address] [place] [address] Dr. Ashlie Hills Sodium [Moles/Vol] 142 mmol/L Normal 136-145 [facility] Comment on above: Performed By: #### C BC #### [facility] [address] [address] [address] Ashlie Hills Urea nitrogen [Mass/Vol] 12.0 mg/dL Normal 7.0-18.0 [facility] Comment on above: Performed By: #### C BC #### [facility] [address] [place] [address] Dr. Ashlie Hills Urea nitrogen/Creatinine [Mass ratio] 19.4 mg/mg Normal [facility] Comment on above: Performed By: #### C BC #### [facility] [address] [place] [address] Dr. Ashlie Hills URINE MICROSCOPIC ONLYon BACTERIA TRACE Abnormal NONE SEEN [facility] Comment on above: Performed By: #### P OCGLUC #### [facility] [address] [place] [address] Dr. Ashlie Hills Bacteria identified Cx Nom (U) NOT INDICATED Normal [facility] Comment on above: Performed By: #### P OCGLUC #### [facility] [address] [place] [address] Dr. Ashlie Hills CAST NONE SEEN Normal NONE SEEN [facility] Comment on above: Performed By: #### P OCGLUC #### [facility] [address] [place] [address] Dr. Ashlie Hills Crystals LM Nom (Urine sed) NONE SEEN Normal NONE SEEN [facility] Comment on above: Performed By: #### P OCGLUC #### [facility] [address] [place] [address] Dr. Ashlie Hills Epithelial cells LM Ql (Urine sed) MODERATE Abnormal NONE SEEN /RARE [facility] Comment on above: Performed By: #### P OCGLUC #### [facility] [address] [place] [address] Dr. Ashlie Hills MUCOUS NONE SEEN Normal NONE SEEN [facility] Comment on above: Performed By: #### P OCGLUC #### [facility] [address] [place] [address] Dr. Ashlie Hills RBC 0-2 Normal 0-2 [facility] Comment on above: Performed By: #### P OCGLUC #### [facility] [address] [place] [address] Dr. Ashlie Hills WBC 0-2 Abnormal NONE SEEN [facility] Comment on above: Performed By: #### P OCGLUC #### [facility] [address] [place] [address] Dr. Ashlie Hills Covid-19 PCR ([facility])on 09-06 SARS-CoV-2 (COVID-19) RNA MADDY+probe Ql (Unsp spec) Detected Abnormal NOT DETECTED [facility] Comment on above: Result Comment: This test is not yet approved or cleared by the [place] FDA. When there are no FDA-approved or cleared tests available, and other criteria are met, FDA can make tests available under an emergency access mechanism called an Emergency Use Authorization (EUA). The EUA for this test is supported by the Building Contractor of Health and Human Service's declaration that [...] used). Performed By: #### C VDAGS #### [facility] [address] [place] [address] Dr. Ashlie Hills INFLUENZA A AND B AGon 09-21 INFLUANEGH SEE BELOW Normal [facility] Comment on above: Result Comment: Nega tive for Flu A protein angiten. Infection due to Flu A cannot be ruled out. Flu A angiten in the sample may be below the detection limit of the test. Performed By: #### I NFLUAB #### [facility] [address] [place] [address] Dr. Ashlie Hills INFLUBNEGH SEE BELOW Normal [facility] Comment on above: Result Comment: Nega tive for Flu B protein antigen. Infection due to Flu B cannot be ruled out. Flu B antigen in the sample may be below the detection limit of the test. Performed By: #### I NFLUAB #### [facility] [address] [place] [address] Dr. Ashlie Hills INFLUENZA A AG Negative Normal NEGATIVE SEE COMMENT [facility] Comment on above: Performed By: #### I NFLUAB #### [facility] [address] [place], [place] [address] [address]. Ashlie Hills INFLUENZA B AG Negative Normal NEGATIVE SEE COMMENT [facility] Comment on above: Performed By: #### I NFLUAB #### [facility] [address] [place], [place] [address] ABD/PELV W CONon [...] to at least 10/21/2018, unchanged. https://www.ncbi.nlm .nih.gov/pmc/article s/[email or web address]/ Electronically authenticated by: COLLIN HUERTAS Date: 2022-07-27 14:56 Normal [facility] CREATININEon 07-18-2022 Creatinine [Mass/Vol] 0.81 mg/dL Normal 0.55-1.02 [facility] Comment on above: Performed By: #### C BC #### [facility] [address] [address] [address] Ashlie Hills EGFR-AF SAUDI ARABIAN >60 Normal >=60 [facility] Comment on above: Performed By: #### C BC #### [facility] [address] [place], [place] [address] Dr. Ashlie Hills EGFR-NON AF SAUDI ARABIAN >60 Normal >=60 [facility] Comment on above: Performed By: #### C #### [facility] [address] [address] [address] LOW EXT W [...] PATRICIA VELOZ Date: 2022-07-18 14:58 Normal [facility] XR KNEE LT 1_2 Von [...] HATTIE BAUTISTA Date: 2022-07-18 12:00 Normal [facility] Covid-19 PCR ([facility])on 06-09 SARS-CoV-2 (COVID-19) RNA MADDY+probe Ql (Unsp spec) Not detected Normal NOT DETECTED [facility] Comment on above: Result Comment: This test is not yet approved or cleared by the [place] FDA. When there are no FDA-approved or cleared tests available, and other criteria are met, FDA can make tests available under an emergency access mechanism called an Emergency Use Authorization (EUA). The EUA for this test is supported by the Building Contractor of Health and Human Service's (HHS's) declaration [...] SARS-CoV-2. Performed By: #### C BC #### [facility] [address] [place] [address] Dr. Ashlie Hills INFLUENZA A AND B [facility] 07-06 [facility] SEE BELOW Normal [facility] Comment on above: Result Comment: Nega tive for Flu A protein angiten. Infection due to Flu A cannot be ruled out. Flu A angiten in the sample may be below the detection limit of the test. Performed By: #### C BC #### [facility] [address] [place] [address] Dr. Ashlie Hills [facility] SEE BELOW Normal [facility] Comment on above: Result Comment: Nega tive for Flu B protein antigen. Infection due to Flu B cannot be ruled out. Flu B antigen in the sample may be below the detection limit of the test. Performed By: #### C BC #### [facility] [address] [place] [address] Dr. Ashlie Hills INFLUENZA A AG Negative Normal NEGATIVE SEE COMMENT [facility] Comment on above: Performed By: #### C BC #### [facility] [address] [place] [address] Dr. Ashlie Hills INFLUENZA B AG Negative Normal NEGATIVE SEE COMMENT [facility] Comment on above: Performed By: #### C BC #### [facility] [address] [place] [address] Dr. Ashlie Hills POINT OF CARE GLUCOSEon 10 Glucose [Mass/Vol] 108 mg/dL Critically high 74-106 [facility] Comment on above: Performed By: #### C BC #### [facility] [address] [place] [address] Dr. Ashlie Hills RAGHU by IFAon 03-07-2022 Antinuclear Antibodies, IFA Negative Normal [facility] Comment on above: Result Comment: Nega tive <1:80 Borderline 1:80 Positive >1:80 ICAP nomenclature: AC-0 For more information about Hep-2 cell patterns use ANApatterns.org, the official website for the International Consensus on Antinuclear Antibody (RAGHU) Patterns (ICAP). Performed By: #### A NAIFA #### [facility] [address] [place] [address] Dr. Ashlie Hills IMMUNOFIXATION (TREVON), URINEo n 03-07-2022 TREVON Interpretation:U Comment Normal [facility] Comment on above: Result Comment: No m onoclonality detected. Performed By: #### C BC #### [facility] [address] [place] [address] Dr. Ashlie Hills IMMUNOFIXATION(TREVON),PROTEIN ELEC(PE),FREon 03-07-2022 Albumin [Mass/Vol] 3.0 g/dL Normal 2.9-4.4 [facility] Comment on above: Performed By: #### I NFLUAB #### [facility] [address] [place] [address] Dr. Ashlie Hills Albumin/Globulin [Mass ratio] 0.8 {ratio} Normal 0.7-1.7 [facility] Comment on above: Performed By: #### I NFLUAB #### [facility] [address] [place] [address] Dr. Ashlie Hills Dkunw-4-Ebrahbif 0.3 g/dL Normal 0.0-0.4 [facility] Comment on above: Performed By: #### I NFLUAB #### [facility] [address] [address] [address] Ashlie Hills Urnkp-8-Gibkvcqm 1.0 g/dL Normal 0.4-1.0 [facility] Comment on above: Performed By: #### I NFLUAB #### [facility] [address] [address] [address] Ashlie Hills Beta Globulin 1.8 g/dL Critically high 0.7-1.3 [facility] Comment on above: Performed By: #### I NFLUAB #### [facility] [address] [address] [address] Ashlie Hills Free Rossmoyne Lt Chains,S 45.2 mg/L Critically high 3.3-19.4 [facility] Comment on above: Performed By: #### I NFLUAB #### [facility] [address] [place] [address] Dr. Ashlie Hills Free Lambda Lt Chains,S 40.3 mg/L Critically high 5.7-26. 3 [facility] Comment on above: Performed By: #### I NFLUAB #### [facility] [address] [address] [address] Ashlie Hills Gamma Globulin 0.8 g/dL Normal 0.4-1.8 [facility] Comment on above: Performed By: #### I NFLUAB #### [facility] [address] [address] [address] Ashlie Hills Globulin (S) [Mass/Vol] 3.9 g/dL Normal 2.2-3.9 [facility] Comment on above: Performed By: #### I NFLUAB #### [facility] [address] [address] [address] Ashlie Hills Immunofixation Result, Serum Comment Normal [facility] Comment on above: Result Comment: No m onoclonality detected. Performed By: #### I NFLUAB #### [facility] [address] [address] [address] Ashlie Hills Immunoglobulin A, Qn, Serum 776 mg/dL Critically high 87-352 [facility] Comment on above: Performed By: #### I NFLUAB #### [facility] [address] [address] [address] Ashlie Hills Immunoglobulin G, Qn, Serum 955 mg/dL Normal 586-1602 [facility] Comment on above: Performed By: #### I NFLUAB #### [facility] [address] [address] [address] Ashlie Hills Immunoglobulin M, Qn, Serum 39 mg/dL Normal 26-217 [facility] Comment on above: Performed By: #### I NFLUAB #### [facility] [address] [address] [address] Ashlie Hills Rossmoyne/Lambda Ratio, S 1.12 Normal 0.26-1.65 [facility] Comment on above: Performed By: #### I NFLUAB #### [facility] [address] [address] [address] Ashlie Hills M-Bright Not Observed Normal Not Observed [facility] Comment on above: Performed By: #### I NFLUAB #### [facility] [address] [address] [address] Ashlie Hills PDF . Normal [facility] Comment on above: Performed By: #### I NFLUAB #### [facility] [address] [address] [address] Ashlie Hills Please note: Comment Normal [facility] Comment on above: Result Comment: Prot ein electrophoresis scan will follow via computer, mail, or dry ice maker delivery. Performed By: #### I NFLUAB #### [facility] [address] [address] [address] Ashlie Hills Protein [Mass/Vol] 6.9 g/dL Normal 6.0-8.5 [facility] Comment on above: Performed By: #### I NFLUAB #### [facility] [address] [address] [address] Ashlie Hills C-PEPTIDE, SERUMon 2 C-Peptide, Serum 3.1 ng/mL Normal 1.1-4.4 [facility] Comment on above: Result Comment: C-Pe ptide reference interval is for fasting patients. Performed By: #### C PEPT #### [facility] [address] [address] [address] Ashlie Hills HEP B SURFACE ANTIGEN SCREEN on 03-04-2022 HBsAg Screen Negative Normal Negative [facility] Comment on above: Performed By: #### C BC #### [facility] [address] [address] [address] Ashlie Hills HEPATITIS C VIRUS AB W/ REFL EX QUANTon 03-04-2022 HCV AB <0.1 Normal 0.0-0.9 [facility] Comment on above: Performed By: #### I NFLUAB #### [facility] [address] [place] [address] Dr. Ashlie Hills Interpretation: Comment Normal [facility] Comment on above: Result Comment: Nega tive Not infected with HCV, unless recent infection is suspected or other evidence exists to indicate HCV infection. Performed By: #### I NFLUAB #### [facility] [address] [place] [address] Dr. Ashlie Hills MICROALBUMIN/ CREATININE RAT IOon 03-04-2022 Albumin, Urine 367.4 ug/mL Normal Not Estab. [facility] Comment on above: Performed By: #### C BC #### [facility] [address] [place] [address] Dr. Ashlie Hills Albumin/ Creatinine Ratio 239 mg/g creat Critically high 0-29 [facility] Comment on above: Result Comment: Norm al: 0 - 29 Moderately increased: 30 - 300 Severely increased: >300 Performed By: #### C BC #### [facility] [address] [address] [address] Ashlie Hills Creatinine, Urine 153.9 mg/dL Normal Not Estab. [facility] Comment on above: Performed By: #### C BC #### [facility] [address] [place] [address] Dr. Ashlie Hills VIT D 25-OH LABCORPon 2021 Vitamin D, 25-Hydroxy <4.0 Critically low 30.0-100.0 [facility] Comment on above: Result Comment: Graciela min D deficiency has been defined by the [place] of [employer] and an Endocrine Society practice guideline as a level of serum 25-OH vitamin D less than 20 ng/mL (1,2). The Endocrine Society went on to further define vitamin D insufficiency as a level between 21 and 29 ng/mL (2). 1. IOM ([place] of Medicine). 2010. Dietary reference intakes for calcium and D. [place]: The National Academies Press. 2. Lynda MF, Keely OLIVEROS, Leandra LOPEZ, et al. Evaluation, treatment, and prevention of vitamin D deficiency: an Endocrine Society clinical practice guideline. JCEM. 2010; 96(7):1911-30. Performed By: #### C BC #### [facility] [address] [place] [address] Dr. Ashlie Hills GLYCOHEMOGLOBIN A1Con 2021 ADA RECOMMENDATION SEE BELOW Normal [facility] Comment on above: Result Comment: ADA RECOMMENDED LIMIT 4.0 - 6.0 ADA THERAPEUTIC TARGET < 7.0 ACTION SUGGESTED > 7.0 Performed By: #### C VDAGS #### [facility] [address] [address] [address] Ashlie Hills Glucose [Mass/Vol] 295 mg/dL Normal [facility] Comment on above: Performed By: #### C VDAGS #### [facility] [address] [address] [address] Ashlie Hills HbA1c (Bld) [Mass fraction] 11.9 % Critically high 4.5-6.2 [facility] Comment on above: Performed By: #### C VDAGS #### [facility] [address] [address] [address] Ashlie Hills HEMOGRAM AND PLATELon 2021 Hematocrit (Bld) [Volume fraction] 56.3 % Critically high 36.0-48.0 [facility] Comment on above: Performed By: #### C VDAGS #### [facility] [address] [address] [address] Ashlie Hills Hemoglobin (Bld) [Mass/Vol] 18.0 g/dL Critically high 12.0-16.0 [facility] Comment on above: Performed By: #### C VDAGS #### [facility] [address] [place] [address] Dr. Ashlie Hills MCH (RBC) [Entitic mass] 29.5 pg Normal 26.7-34.0 [facility] Comment on above: Performed By: #### C VDAGS #### [facility] [address] [place] [address] Dr. Ashlie Hills MCHC (RBC) [Mass/Vol] 32.0 g/dL Normal 29.9-35.2 [facility] Comment on above: Performed By: #### C VDAGS #### [facility] [address] [place] [address] Dr. Ashlie Hills MCV (RBC) [Entitic vol] 92.1 fL Normal 81.0-99.0 [facility] Comment on above: Performed By: #### C VDAGS #### [facility] [address] [place] [address] Dr. Ashlie Hills PLT 123 103/ul Critically low 150-450 [facility] Comment on above: Performed By: #### C VDAGS #### [facility] [address] [place] [address] Dr. Ashlie Hills RBC 6.11 106/ul Critically high 4.20-5.40 [facility] Comment on above: Performed By: #### C VDAGS #### [facility] [address] [place] [address] Dr. Ashlie Hills WBC 16.4 103/ul Critically high 4.0-11.0 [facility] Comment on above: Performed By: #### C VDAGS #### [facility] [address] [place] [address] Dr. Ashlie Hills LIPID PROFILEon 03-03-2022 CHOL-HDL RATIO NORM SEE BELOW Normal [facility] Comment on above: Result Comment: 3.3 - 4.4 LOW RISK 4.4 - 7.1 AVERAGE RISK 7.1 - 11.0 MODERATE RISK >11.0 HIGH RISK Performed By: #### C VDAGS #### [facility] [address] [address] [address] Ashlie Hills Cholesterol [Mass/Vol] 159 mg/dL Normal <=200 [facility] Comment on above: Performed By: #### C VDAGS #### [facility] [address] [address] [address] Ashlie Hills Cholesterol in HDL [Mass/Vol] 40 mg/dL Normal 40-60 [facility] Comment on above: Performed By: #### C VDAGS #### [facility] [address] [address] [address] Ashlie Hills Cholesterol in LDL [Mass/Vol] 81.8 mg/dL Normal [facility] Comment on above: Performed By: #### C VDAGS #### [facility] [address] [place] [address] Dr. Ashlie Hills Cholesterol.total/Choles terol in HDL [Mass ratio] 4.0 {ratio} Normal [facility] Comment on above: Performed By: #### C VDAGS #### [facility] [address] [address] [address] Ashlie Hills HDL NORMAL > or = 60 mg/dl - LOW CARDIOVASCULAR RISK <40 mg/dl - HIGH CARDIOVASCULAR RISK Normal [facility] Comment on above: Performed By: #### C VDAGS #### [facility] [address] [address] [address] Ashlie Hills LDL CALC NORMAL SEE BELOW Normal [facility] Comment on above: Result Comment: <100 mg/dl OPTIMAL 100 - 129 mg/dl NEAR OR ABOVE OPTIMAL 130 - 159 mg/dl BORDERLINE HIGH 160 - 189 mg/dl HIGH >190 mg/dl VERY HIGH Performed By: #### C VDAGS #### [facility] [address] [address] [address] Ashlie Hills Triglyceride [Mass/Vol] 186 mg/dL Critically high <=150 [facility] Comment on above: Performed By: #### C VDAGS #### [facility] [address] [address] [address] Ashlie Hills VLDL CALC 37.2 mg/dL Normal [facility] Comment on above: Performed By: #### C VDAGS #### [facility] [address] [address] [address] Ashlie Hills RENAL FUNCTION PANELon 03-03 Albumin [Mass/Vol] 3.1 g/dL Critically low 3.4-5.0 [facility] Comment on above: Performed By: #### C BC #### [facility] [address] [place] [address] Dr. Ashlie Hills Calcium [Mass/Vol] 9.2 mg/dL Normal 8.5-10.1 [facility] Comment on above: Performed By: #### C BC #### [facility] [address] [place] [address] Dr. Ashlie Hills Chloride [Moles/Vol] 102 mmol/L Normal 98-107 [facility] Comment on above: Performed By: #### C BC #### [facility] [address] [address] [address] Ashlie Hills CO2 [Moles/Vol] 31.9 mmol/L Normal 21.0-32.0 [facility] Comment on above: Performed By: #### C BC #### [facility] [address] [place] [address] Dr. Ashlie Hills Creatinine [Mass/Vol] 0.68 mg/dL Normal 0.55-1.02 [facility] Comment on above: Performed By: #### C BC #### [facility] [address] [place] [address] Dr. Ashlie Hills EGFR-AF SAUDI ARABIAN >60 Normal >=60 [facility] Comment on above: Performed By: #### C BC #### [facility] [address] [place] [address] Dr. Ashlie Hills EGFR-NON AF SAUDI ARABIAN >60 Normal >=60 [facility] Comment on above: Performed By: #### C BC #### [facility] [address] [place] [address] Dr. Ashlie Hills Glucose [Mass/Vol] 131 mg/dL Critically high 74-106 [facility] Comment on above: Performed By: #### C BC #### [facility] [address] [place] [address] Dr. Ashlie Hills Phosphate [Mass/Vol] 4.0 mg/dL Normal 2.6-4.7 [facility] Comment on above: Performed By: #### C BC #### [facility] [address] [place] [address] Dr. Ashlie Hills Potassium [Moles/Vol] 4.0 mmol/L Normal 3.5-5.1 [facility] Comment on above: Performed By: #### C BC #### [facility] [address] [place] [address] Dr. Ashlie Hills Sodium [Moles/Vol] 141 mmol/L Normal 136-145 [facility] Comment on above: Performed By: #### C BC #### [facility] [address] [place] [address] Dr. Ashlie Hills Urea nitrogen [Mass/Vol] 17.0 mg/dL Normal 7.0-18.0 [facility] Comment on above: Performed By: #### C BC #### [facility] [address] [place] [address] Dr. Ashlie Hills UA RANDOM W/MICROSCOPICon BACTERIA NONE SEEN Normal NONE SEEN [facility] Comment on above: Performed By: #### I NFLUAB #### [facility] [address] [place] [address] Dr. Ashlie Hills Bilirubin Ql (U) Negative Normal NEGATIVE [facility] Comment on above: Performed By: #### I NFLUAB #### [facility] [address] [place] [address] Dr. Ashlie Hills CAST NONE SEEN Normal NONE SEEN [facility] Comment on above: Performed By: #### I NFLUAB #### [facility] [address] [place] [address] Dr. Ashlie Hills Clarity (U) CLEAR Normal CLEAR [facility] Comment on above: Performed By: #### I NFLUAB #### [facility] [address] [address] [address] Ashlie Hills Color (U) YELLOW Normal YELLOW [facility] Comment on above: Performed By: #### I NFLUAB #### [facility] [address] [place] [address] Dr. Ashlie Hills Crystals LM Nom (Urine sed) NONE SEEN Normal NONE SEEN [facility] Comment on above: Performed By: #### I NFLUAB #### [facility] [address] [place] [address] Dr. Ashlie Hills Epithelial cells LM Ql (Urine sed) FEW Abnormal NONE SEEN /RARE [facility] Comment on above: Performed By: #### I NFLUAB #### [facility] [address] [place] [address] Dr. Ashlie Hills Glucose Ql (U) Negative Normal NEGATIVE [facility] Comment on above: Performed By: #### I NFLUAB #### [facility] [address] [place] [address] Dr. Ashlie Hills Hemoglobin Ql (U) Negative Normal NEGATIVE [facility] Comment on above: Performed By: #### I NFLUAB #### [facility] [address] [place] [address] Dr. Ashlie Hills Ketones Ql (U) Negative Normal NEGATIVE [facility] Comment on above: Performed By: #### I NFLUAB #### [facility] [address] [place] [address] Dr. Ashlie Hills LEUKOCYTES Negative Normal NEGATIVE [facility] Comment on above: Performed By: #### I NFLUAB #### [facility] [address] [place] [address] Dr. Ashlie Hills MUCOUS NONE SEEN Normal NONE SEEN [facility] Comment on above: Performed By: #### I NFLUAB #### [facility] [address] [place] [address] Dr. Ashlie Hills Nitrite Ql (U) Negative Normal NEGATIVE [facility] Comment on above: Performed By: #### I NFLUAB #### [facility] [address] [place] [address] Dr. Ashlie Hills pH (U) 5.5 [pH] Normal 5-9 [facility] Comment on above: Performed By: #### I NFLUAB #### [facility] [address] [place] [address] Dr. Ashlie Hills RBC 0-2 Normal 0-2 [facility] Comment on above: Performed By: #### I NFLUAB #### [facility] [address] [place] [address] Dr. Ashlie Hills SPEC GRAVITY >=1.030 Abnormal 1.005-<=1.02 5 [facility] Comment on above: Performed By: #### I NFLUAB #### [facility] [address] [place] [address] Dr. Ashlie Hills UA PROTEIN 100 mg/dl Abnormal NEGATIVE/ TRACE [facility] Comment on above: Performed By: #### I NFLUAB #### [facility] [address] [place] [address] Dr. Ashlie Hills Urobilinogen Qn (U) 0.2 {Little'U}/dL Normal 0.2 - 1. 0 [facility] Comment on above: Performed By: #### I NFLUAB #### [facility] [address] [place] [address] Dr. Ashlie Hills WBC NONE SEEN Normal NONE SEEN [facility] Comment on above: Performed By: #### I NFLUAB #### [facility] [address] [place] [address] Dr. Ashlie Hills URIC ACID SERUMon 03-03-2022 Urate [Mass/Vol] 5.0 mg/dL Normal 2.6-6.0 [facility] Comment on above: Performed By: #### I NFLUAB #### [facility] [address] [place] [address] Dr. Ashlie Hills URINE T PROTEIN CREAT RATIOo n 03-03-2022 Protein (U) [Mass/Vol] 77.9 mg/dL Critically high <=12.0 [facility] Comment on above: Performed By: #### C VDAGS #### [facility] [address] [place] [address] Dr. Ashlie Hills UR PROT CREAT RAT 0.44 Normal [facility] Comment on above: Performed By: #### C VDAGS #### [facility] [address] [place] [address] Dr. Ashlie Hills URINE CREAT 175.15 mg/dL Normal 20.00-300.00 [facility] Comment on above: Performed By: #### C VDAGS #### [facility] [address] [place] [address] Dr. Ashlie Hills CULTURE URINEon 12-25-2021 CULTURE URINE Culture Observations: GREATER THAN TWO ORGANISMS PRESENT, HEAVILY MIXED. PLEASE RESUBMIT CLEAN CATCH MID-STREAM URINE IF CLINICALLY INDICATED. Normal [facility] Comment on above: Performed By: #### I NFLUAB #### [facility] [address] [place] [address] Dr. Ashlie Hills CBC AUTO DIFFon 12-24-2021 BASO # 0.1 103/ul Normal 0.0-0.1 [facility] Comment on above: Performed By: #### C BC #### [facility] [address] [place] [address] Dr. Ashlie Hills Basophils/100 WBC (Bld) 0.5 % Normal 0.2-2.0 [facility] Comment on above: Performed By: #### C BC #### [facility] [address] [place] [address] Dr. Ashlie Hills EO # 0.4 103/ul Normal 0.0-0.7 [facility] Comment on above: Performed By: #### C BC #### [facility] [address] [place] [address] Dr. Ashlie Hills Eosinophils/100 WBC (Bld) 2.4 % Normal 0.9-7.0 [facility] Comment on above: Performed By: #### C BC #### [facility] [address] [place] [address] Dr. Ashlie Hills Erythrocyte distribution width (RBC) [Ratio] 14.1 % Normal 11.0-15.0 [facility] Comment on above: Performed By: #### C BC #### [facility] [address] [address] [address] Ashlie Hills Hematocrit (Bld) [Volume fraction] 55.9 % Critically high 36.0-48.0 [facility] Comment on above: Performed By: #### C BC #### [facility] [address] [address] [address] Ashlie Hills Hemoglobin (Bld) [Mass/Vol] 17.9 g/dL Critically high 12.0-16.0 [facility] Comment on above: Performed By: #### C BC #### [facility] [address] [place] [address] Dr. Ashlie Hills IG # 0.06 10e3/ul Critically high 0.00-0.03 [facility] Comment on above: Performed By: #### C BC #### [facility] [address] [place] [address] Dr. Ashlie Hills IG % 0.4 % Normal 0.0-0.5 [facility] Comment on above: Performed By: #### C BC #### [facility] [address] [address] [address] Ashlie Hills LYMPH # 5.8 103/ul Critically high 1.2-3.8 [facility] Comment on above: Performed By: #### C BC #### [facility] [address] [place] [address] Dr. Ashlie Hills Lymphocytes/100 WBC (Bld) 35.4 % Normal 20.5-60.0 [facility] Comment on above: Performed By: #### C BC #### [facility] [address] [address] [address] Ashlie Hills MANUAL DIFF REQ NO Normal [facility] Comment on above: Performed By: #### C BC #### [facility] [address] [place] [address] Dr. Ashlie Hills MCH (RBC) [Entitic mass] 29.4 pg Normal 26.7-34.0 [facility] Comment on above: Performed By: #### C BC #### [facility] [address] [address] [address] Ashlie Hills MCHC (RBC) [Mass/Vol] 32.0 g/dL Normal 29.9-35.2 [facility] Comment on above: Performed By: #### C BC #### [facility] [address] [address] [address] Ashlie Hills MCV (RBC) [Entitic vol] 91.8 fL Normal 81.0-99.0 [facility] Comment on above: Performed By: #### C BC #### [facility] [address] [address] [address] Ashlie Hills MONO # 0.8 103/ul Normal 0.3-0.8 [facility] Comment on above: Performed By: #### C BC #### [facility] [address] [place] [address] Dr. Ashlie Hills Monocytes/100 WBC (Bld) 4.8 % Normal 1.7-12.0 [facility] Comment on above: Performed By: #### C BC #### [facility] [address] [address] [address] Ashlie Hills NEUT # 9.3 103/ul Critically high 1.4-6.5 [facility] Comment on above: Performed By: #### C BC #### [facility] [address] [place] [address] Dr. Ashlie Hills Neutrophils/100 WBC (Bld) 56.5 % Normal 43.0-75.0 [facility] Comment on above: Performed By: #### C BC #### [facility] [address] [address] [address] Ashlie Hills Platelet mean volume (Bld) [Entitic vol] 12.9 fL Normal 9.5-13.5 [facility] Comment on above: Performed By: #### C BC #### [facility] [address] [place] [address] Dr. Ashlie Hills PLT 127 103/ul Critically low 150-450 [facility] Comment on above: Performed By: #### C BC #### [facility] [address] [place], [place] [address] Dr. Ashlie Hills RBC 6.09 106/ul Critically high 4.20-5.40 [facility] Comment on above: Performed By: #### C BC #### [facility] [address] [place], [place] [address] Dr. Ashlie Hills WBC 16.4 103/ul Critically high 4.0-11.0 [facility] Comment on above: Performed By: #### C BC #### [facility] [address] [place], [place] [address] ABD/PELVIS WO CONon [...] Severe right hip degenerative change. Normal [facility] URINE PROFILEon 2 Bilirubin Ql (U) Negative Normal NEGATIVE [facility] Comment on above: Performed By: #### Tracey LYMAN ICRO #### [facility] [address] [place] [address] Dr. Ashlie Hills Clarity (U) CLEAR Normal CLEAR [facility] Comment on above: Performed By: #### Tracey LYMAN UMICRO #### [facility] [address] [address] [address] Ashlie Hills Color (U) DK. ORANGE Abnormal YELLOW [facility] Comment on above: Performed By: #### Tracey LYMAN UMICRO #### [facility] [address] [address] [address] Ashlie Hills ERUAHD A micrscopic examination will be performed if indicated. Normal [facility] Comment on above: Performed By: #### Tracey LYMAN UMICRO #### [facility] [address] [address] [address] Ashlie Hills Glucose Ql (U) 250 mg/dl Abnormal NEGATIVE [facility] Comment on above: Performed By: #### E NURA UMICRO #### [facility] [address] [place] [address] Dr. Ashlie Hills Hemoglobin Ql (U) Negative Normal NEGATIVE [facility] Comment on above: Performed By: #### MADELINE DIAZRO #### [facility] [address] [place] [address] Dr. Ashlie Hills Ketones Ql (U) Negative Normal NEGATIVE [facility] Comment on above: Performed By: #### MADELINE DIAZRO #### [facility] [address] [place] [address] Dr. Ashlie Hills LEUKOCYTES Negative Normal NEGATIVE [facility] Comment on above: Performed By: #### MADELINE DIAZRO #### [facility] [address] [place] [address] Dr. Ashlie Hills Nitrite Ql (U) Negative Normal NEGATIVE [facility] Comment on above: Performed By: #### EVONNE DIAZ #### [facility] [address] [place] [address] Dr. Ashlie Hills pH (U) 5.0 [pH] Normal 5-9 [facility] Comment on above: Performed By: #### EVONNE DIAZ #### [facility] [address] [place] [address] Dr. Ashlie Hills Protein (U) [Mass/Vol] 100 mg/dL Abnormal NEGAT YURY/ TRACE [facility] Comment on above: Performed By: #### MADELINE DIAZRO #### [facility] [address] [place] [address] Dr. Ashlie Hills SPEC GRAVITY >=1.030 Abnormal 1.005-<=1.02 5 [facility] Comment on above: Performed By: #### MADELINE DIAZRO #### [facility] [address] [place] [address] Dr. Ashlie Hills UR MICRO IND INDICATED Normal [facility] Comment on above: Performed By: #### EVONNE DIAZ #### [facility] [address] [place] [address] Dr. Ashlie Hills Urobilinogen Qn (U) 1.0 {Little'U}/dL Normal 0.2 - 1. 0 [facility] Comment on above: Performed By: #### E EVONNE LYMAN #### [facility] [address] [address] [address] Ashlie Hills PROF CHEM 8 (BAS METB)on Anion gap [Moles/Vol] 12.1 mmol/L Normal Th [facility] Comment on above: Performed By: #### I NFLUAB #### [facility] [address] [address] [address] Ashlie Hills Calcium [Mass/Vol] 9.0 mg/dL Normal 8.5-10.1 [facility] Comment on above: Performed By: #### I NFLUAB #### [facility] [address] [place] [address] Dr. Ashlie Hills Chloride [Moles/Vol] 101 mmol/L Normal 98-107 [facility] Comment on above: Performed By: #### I NFLUAB #### [facility] [address] [place] [address] Dr. Ashlie Hills CO2 [Moles/Vol] 29.1 mmol/L Normal 21.0-32.0 [facility] Comment on above: Performed By: #### I NFLUAB #### [facility] [address] [place] [address] Dr. Ashlie Hills Creatinine [Mass/Vol] 0.86 mg/dL Normal 0.55-1.02 [facility] Comment on above: Performed By: #### I NFLUAB #### [facility] [address] [place] [address] Dr. Ashlie Hills EGFR-AF SAUDI ARABIAN >60 Normal >=60 [facility] Comment on above: Performed By: #### I NFLUAB #### [facility] [address] [address] [address] Ashlie Hills EGFR-NON AF SAUDI ARABIAN >60 Normal >=60 [facility] Comment on above: Performed By: #### I NFLUAB #### [facility] [address] [address] [address] Ashlie Hills Glucose [Mass/Vol] 236 mg/dL Critically high 74-106 [facility] Comment on above: Performed By: #### I NFLUAB #### [facility] [address] [place] [address] Dr. Ashlie Hills Potassium [Moles/Vol] 4.2 mmol/L Normal 3.5-5.1 [facility] Comment on above: Performed By: #### I NFLUAB #### [facility] [address] [place] [address] Dr. Ashlie Hills Sodium [Moles/Vol] 138 mmol/L Normal 136-145 [facility] Comment on above: Performed By: #### I NFLUAB #### [facility] [address] [place] [address] Dr. Ashlie Hills Urea nitrogen [Mass/Vol] 11.0 mg/dL Normal 7.0-18.0 [facility] Comment on above: Performed By: #### I NFLUAB #### [facility] [address] [place] [address] Dr. Ashlie Hills Urea nitrogen/Creatinine [Mass ratio] 12.8 mg/mg Normal [facility] Comment on above: Performed By: #### I NFLUAB #### [facility] [address] [place] [address] Dr. Ashlie Hills URINE MICROSCOPIC ONLYon BACTERIA SMALL Abnormal NONE SEEN [facility] Comment on above: Performed By: #### Tracey LYMAN UMICRO #### [facility] [address] [place] [address] Dr. Ashlie Hills Bacteria identified Cx Nom (U) INDICATED Normal [facility] Comment on above: Performed By: #### Tracey LYMAN UMHARRIETRO #### [facility] [address] [place] [address] Dr. Ashlie Hills CAST NONE SEEN Normal NONE SEEN [facility] Comment on above: Performed By: #### MADELINE DIAZRO #### [facility] [address] [place] [address] Dr. Ashlie Hills Crystals LM Nom (Urine sed) NONE SEEN Normal NONE SEEN [facility] Comment on above: Performed By: #### E RUR, UMICRO #### [facility] [address] [place] [address] Dr. Ashlie Hills Epithelial cells LM Ql (Urine sed) MODERATE Abnormal NONE SEEN /RARE [facility] Comment on above: Performed By: #### E RUR, UMICRO #### [facility] [address] [place] [address] Dr. Ashlie Hills MUCOUS NONE SEEN Normal NONE SEEN [facility] Comment on above: Performed By: #### E RUR, UMICRO #### [facility] [address] [place] [address] Dr. Ashlie Hills RBC 0-2 Normal 0-2 [facility] Comment on above: Performed By: #### E RUR, UMICRO #### [facility] [address] [place] [address] Dr. Ashlie Hills WBC 0-2 Abnormal NONE SEEN [facility] Comment on above: Performed By: #### E RUR, UMICRO #### [facility] [address] [place] [address] Dr. Ashlie Hills YEAST PRESENT Abnormal NONE SEEN [facility] Comment on above: Performed By: #### E RUR, UMICRO #### [facility] [address] [place] [address] Dr. Ashlie Hills HIP RIGHT 1 OR 2 VWS WITH PE LVISon 07-20-2020 HIP RIGHT 1 OR 2 VWS WITH PELVIS [facility] Department of Radiology [address] [place] [address] Patient Name: MITZI MACIAS : [...] MRI. Electronically signed: Pipo Acevedo. Transcribed by: [email or web address], User Resident: Electronically Signed by: PIPO ACEVEDO @ 07/20/2020 03:45 PM Normal [facility] Comment on above: Order Comment: evalu ate Vital Signs Date Time Vital Sign Value Performing Clinician Facility 04-06-2025 15:37-0400 Body temperature 98.1 [degF] Mckayla Blas QUALITY ENG-C Work Phone: [facility] 04-06-2025 15:37-0400 Diastolic blood pressure 84 mm[Hg] Mckayla Blas QUALITY ENG-C Work Phone: [facility] 04-06-2025 15:37-0400 Heart rate 81 /min Mckayla Blas QUALITY ENG-C Work Phone: [facility] 04-06-2025 15:37-0400 Respiratory rate 20 /min Mckayla Blas QUALITY ENG-C Work Phone: [facility] 04-06-2025 15:37-0400 SaO2% (BldA) [Mass fraction] 92 % Mckayla Blas QUALITY ENG-C Work Phone: [facility] 04-06-2025 15:37-0400 Systolic blood pressure 146 mm[Hg] Mckayla Blas QUALITY ENG-C Work Phone: [facility] 01-29-2025 09:48-0400 Body height 170.2 cm Rain Souza MD Work Phone: [facility] 01-29-2025 09:48-0400 Body mass index (BMI) [Ratio] 56.38 kg/m2 Rain Souza MD Work Phone: [facility] 01-29-2025 09:48-0400 Body weight 163.29 kg Rain Souza MD Work Phone: [facility] 01-29-2025 09:48-0400 Diastolic blood pressure 70 mm[Hg] Rain Souza MD Work Phone: [facility] 01-29-2025 09:48-0400 Heart rate 72 /min Rain Souza MD Work Phone: [facility] 01-29-2025 09:48-0400 Respiratory rate 16 /min Rain Souza MD Work Phone: [facility] 01-29-2025 09:48-0400 SaO2% (BldA) [Mass fraction] 84 % Rain Souza MD Work Phone: [facility] 01-29-2025 09:48-0400 Systolic blood pressure 130 mm[Hg] Rain Souza MD Work Phone: [facility] 01-26-2025 18:11-0400 Body mass index (BMI) [Ratio] 58.64 kg/m2 Mckayla Blas QUALITY ENG Work Phone: [facility] 01-26-2025 18:11-0400 Body temperature 98.49 [degF] Mckayla Aichholz QUALITY ENG Work Phone: [facility] 01-26-2025 18:11-0400 Body weight 169.83 kg Mckayla Aichholz QUALITY ENG Work Phone: [facility] 01-26-2025 18:11-0400 Diastolic blood pressure 82 mm[Hg] Mckayla Aichholz QUALITY ENG Work Phone: [facility] 01-26-2025 18:11-0400 Heart rate 81 /min Mckayla Aichholz QUALITY ENG Work Phone: [facility] 01-26-2025 18:11-0400 Respiratory rate 20 /min Mckayla Aichholz QUALITY ENG Work Phone: [facility] 01-26-2025 18:11-0400 SaO2% (BldA) [Mass fraction] 90 % Mckayla Aichholz QUALITY ENG Work Phone: [facility] 01-26-2025 18:11-0400 Systolic blood pressure 126 mm[Hg] Mckayla Aichholz QUALITY ENG Work Phone: [facility] 12-09-2024 10:19-0400 Body temperature 98.01 [degF] Mckayla Aichholz QUALITY ENG Work Phone: [facility] 12-09-2024 10:19-0400 Diastolic blood pressure 76 mm[Hg] Mckayla Aichholz QUALITY ENG Work Phone: [facility] 12-09-2024 10:19-0400 Heart rate 71 /min Mckayla Aichholz QUALITY ENG Work Phone: [facility] 12-09-2024 10:19-0400 Respiratory rate 20 /min Mckayla Aichholz QUALITY ENG Work Phone: [facility] 12-09-2024 10:19-0400 SaO2% (BldA) [Mass fraction] 88 % Mckayla Aichholz QUALITY ENG Work Phone: [facility] 12-09-2024 10:19-0400 Systolic blood pressure 150 mm[Hg] Mckayla Blas QUALITY ENG Work Phone: [facility] 10-27-2024 14:11-0400 Body height 170.2 cm Mckayla Rosenbergz QUALITY ENG Work Phone: [facility] 10-27-2024 14:11-0400 Body mass index (BMI) [Ratio] 56.51 kg/m2 Mckayla Rosenbergz QUALITY ENG Work Phone: [facility] 10-27-2024 14:11-0400 Body temperature 98.71 [degF] Mckayla Rosenbergz QUALITY ENG Work Phone: [facility] 10-27-2024 14:11-0400 Body weight 163.66 kg Mckayla Rosenbergz QUALITY ENG Work Phone: [facility] 10-27-2024 14:11-0400 Diastolic blood pressure 74 mm[Hg] Mckayla Rosenbergz QUALITY ENG Work Phone: [facility] 10-27-2024 14:11-0400 Heart rate 75 /min Mckaylataryn Patriciaholz QUALITY ENG Work Phone: [facility] 10-27-2024 14:11-0400 Respiratory rate 18 /min Mckaylataryn Rosenbergz QUALITY ENG Work Phone: [facility] 10-27-2024 14:11-0400 SaO2% (BldA) [Mass fraction] 90 % Mckayla Patriciamariyaz QUALITY ENG Work Phone: [facility] 10-27-2024 14:11-0400 Systolic blood pressure 132 mm[Hg] Mckaylataryn Patriciamariyaz QUALITY ENG Work Phone: [facility] 10-08-2024 11:21-0400 Body height 170.2 cm Rain Souza MD Work Phone: [facility] 10-08-2024 11:21-0400 Body mass index (BMI) [Ratio] 55.91 kg/m2 Rain Souza MD Work Phone: [facility] 10-08-2024 11:21-0400 Body weight 161.93 kg Rain Souza MD Work Phone: [facility] 10-08-2024 11:21-0400 Diastolic blood pressure 70 mm[Hg] Rain Souza MD Work Phone: [facility] 10-08-2024 11:21-0400 Heart rate 70 /min Rain Souza MD Work Phone: [facility] 10-08-2024 11:21-0400 Respiratory rate 16 /min Rain Souza MD Work Phone: [facility] 10-08-2024 11:21-0400 SaO2% (BldA) [Mass fraction] 91 % Rain Souza MD Work Phone: [facility] 10-08-2024 11:21-0400 Systolic blood pressure 130 mm[Hg] Rain Souza MD Work Phone: [facility] 08-27-2024 17:44-0500 Body mass index (BMI) [Ratio] 57.31 kg/m2 Mckayla Wan QUALITY ENG Work Phone: [facility] 08-27-2024 17:44-0500 Body temperature 98.01 [degF] Mckayla Wan QUALITY ENG Work Phone: [facility] 08-27-2024 17:44-0500 Body weight 165.97 kg Mckayla Wan QUALITY ENG Work Phone: [facility] 08-27-2024 17:44-0500 Diastolic blood pressure 76 mm[Hg] Mckayla Wan QUALITY ENG Work Phone: [facility] 08-27-2024 17:44-0500 Heart rate 83 /min Mckayla Wan QUALITY ENG Work Phone: [facility] 08-27-2024 17:44-0500 Respiratory rate 18 /min Mckayla Wan QUALITY ENG Work Phone: [facility] 08-27-2024 17:44-0500 SaO2% (BldA) [Mass fraction] 91 % Mckayla Wan QUALITY ENG Work Phone: [facility] 08-27-2024 17:44-0500 Systolic blood pressure 134 mm[Hg] Mckayla Patriciajodie QUALITY ENG Work Phone: [facility] 06-11-2024 10:00-0500 Blood Pressure Location Elbert ARAUZ [facility] 06-11-2024 10:00-0500 Diastolic blood pressure 68 mm[Hg] Elbert ARAUZ [facility] 06-11-2024 10:00-0500 Heart rate 76 /min Elbert ARAUZ [facility] 06-11-2024 10:00-0500 Systolic blood pressure 132 mm[Hg] Elbert ARAUZ [facility] 05-27-2024 10:20-0500 Body height 170.2 cm Rain Souza MD Work Phone: [facility] 05-27-2024 10:20-0500 Body mass index (BMI) [Ratio] 56.7 kg/m2 Rain Souza MD Work Phone: [facility] 05-27-2024 10:20-0500 Body weight 164.2 kg Rain Souza MD Work Phone: [facility] 05-27-2024 10:20-0500 Diastolic blood pressure 66 mm[Hg] Rain Souza MD Work Phone: [facility] 05-27-2024 10:20-0500 Heart rate 72 /min Rain Souza MD Work Phone: [facility] 05-27-2024 10:20-0500 Respiratory rate 16 /min Rain Souza MD Work Phone: [facility] 05-27-2024 10:20-0500 Systolic blood pressure 128 mm[Hg] Rain Souza MD Work Phone: [facility] 04-14-2024 10:27-0400 Body height 165.1 cm Mckayla Rosenbergtalia QUALITY ENG Work Phone: [facility] 04-14-2024 10:27-0400 Body mass index (BMI) [Ratio] 61.01 kg/m2 Mckaylatrayn Patriciamariyaz QUALITY ENG Work Phone: [facility] 04-14-2024 10:27-0400 Body temperature 98.49 [degF] Mckayla Wan QUALITY ENG Work Phone: [facility] 04-14-2024 10:27-0400 Body weight 166.29 kg Mckayla Rosenbergtalia QUALITY ENG Work Phone: [facility] 04-14-2024 10:27-0400 Diastolic blood pressure 80 mm[Hg] Mckayla Patriciamariyaz QUALITY ENG Work Phone: [facility] 04-14-2024 10:27-0400 Heart rate 77 /min Mckaylataryn Rosenbergz QUALITY ENG Work Phone: [facility] 04-14-2024 10:27-0400 Respiratory rate 19 /min Mckaylataryn Rosenbergz QUALITY ENG Work Phone: [facility] 04-14-2024 10:27-0400 SaO2% (BldA) [Mass fraction] 92 % Mckaylataryn Patriciamariyaz QUALITY ENG Work Phone: [facility] 04-14-2024 10:27-0400 Systolic blood pressure 116 mm[Hg] Mckayla Harshadholz QUALITY ENG Work Phone: [facility] 03-08-2022 15:00-0400 Body height 170.18 cm Stephanie Tico Other [employer] Other 03-08-2022 15:00-0400 Body temperature 97.6 [degF] Stephanie Tico Other [employer] Other 03-08-2022 15:00-0400 Diastolic blood pressure 72 mm[Hg] Stephanie Tico Other [employer] Other 03-08-2022 15:00-0400 Respiratory rate 20 /min Stephanie Tico Other [employer] Other 03-08-2022 15:00-0400 SaO2% (BldA) [Mass fraction] 91 % Stephanie Tico Other [employer] Other 03-08-2022 15:00-0400 Systolic blood pressure 131 mm[Hg] Stephanie Tico Other [employer] Other 02-20-2022 09:20-0400 Body height 170.18 cm Stephanie Tico Other [employer] Other 02-20-2022 09:20-0400 Body temperature 96.5 [degF] Stephanie Tico Other [employer] Other 02-20-2022 09:20-0400 Diastolic blood pressure 69 mm[Hg] Stephanie Tico Other [employer] Other 02-20-2022 09:20-0400 Respiratory rate 20 /min Stephanie Tico Other [employer] Other 02-20-2022 09:20-0400 SaO2% (BldA) [Mass fraction] 91 % Stephanie Tico Other [employer] Other 02-20-2022 09:20-0400 Systolic blood pressure 129 mm[Hg] Stephanie Cortés Other [employer] Other 02-06-2022 10:24-0400 Blood Pressure Location Elbert ARAUZ [facility] 02-06-2022 10:24-0400 Diastolic blood pressure 76 mm[Hg] Elbert ARAUZ [facility] 02-06-2022 10:24-0400 Heart rate 70 /min Elbert ARAUZ [facility] 02-06-2022 10:24-0400 Respiratory rate 16 /min Elbert ARAUZ [facility] 02-06-2022 10:24-0400 Systolic blood pressure 134 mm[Hg] Elbert ARAUZ [facility] Encounters Encounter Date Encounter Type Care Provider Facility Start: 04-23-2025 ambulatory Corinne Kellogg MD Facility:[facility] Start: 04-17-2025 End: 04-17-2025 ambulatory 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 Facility:[facility] Start: 04-06-2025 End: 04-06-2025 ambulatory Mckayla MENDIOLA Work Phone: [facility] Work Phone: Start: 04-06-2025 End: 04-06-2025 Patient encounter procedure Mckayla MENDIOLA -[facility] Work Phone: Start: 04-01-2025 Patient encounter procedure Mckayla Blas QUALITY ENG-C Work Phone: [facility] Start: 03-26-2025 Non-patient / Non-visit Flynn aguilar DPM -[facility] Work Phone: Start: 03-25-2025 Non-patient / Non-visit Price Siria Ramsey DO -[facility] Work Phone: Start: 03-24-2025 ambulatory Omero Nas Negrita use TELEVISION MAINTENANCE WORKER-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 OPERATIONS ASSOCIATE Facility:[facility] Start: 03-23-2025 End: 03-23-2025 ambulatory Omero Nas Bob TELEVISION MAINTENANCE WORKER-MARKETING OPERATIONS ASSOCIATE Facility:[facility] Start: 03-11-2025 End: 03-11-2025 ambulatory Flynn Urias DPM Facility[facility] Start: 03-09-2025 End: 03-09-2025 Refill Mckayla Blas QUALITY ENG Work Phone: [facility] Comment on above: Tobacco user; Encounter for smoking cessation counseling Start: 01-29-2025 End: 01-29-2025 Bamboo flowsheet Rain Souza MD Work Phone: [facility] Start: 01-29-2025 End: 01-29-2025 Bamboo flowsheet Rain Souza MD Work Phone: [facility] Start: 01-29-2025 End: 01-29-2025 Clinisync Result Encounter Generic External Data Provider [facility] External Department Unsolicited Start: 01-29-2025 End: 01-29-2025 [...] (BMI) of 50.0 to 59.9 in adult ([facility]) Start: 01-26-2025 End: 01-26-2025 ambulatory MCKAYLA CHETZ Not Available Start: 01-26-2025 End: 01-26-2025 Patient encounter procedure Mckayla Blas QUALITY ENG Work Phone: [facility] Comment on above: Encounter for subseq uent annual wellness visit (AWV) in Medicare patient (Primary Dx); Mixed hyperlipidemia ; Type 2 diabetes mellitus with complication, with long-term current use of insulin ([facility]); Bilateral lower extremity edema; Gastro-esophageal reflux disease without esophagitis; Chronic diastolic heart failure ([facility]); Primary hypertension ; Pulmonary hypertension ([facility]); Diabetic polyneuropathy associated with type 2 diabetes mellitus ([facility]); Pulmonary emphysema, unspecified emphysema type ([facility]); Moderate persistent asthma without complication ([facility]); Insomnia; Non-seasonal allergic rhinitis, unspecified trigger; Type 2 diabetes mellitus with unspecified complications ([facility]); Anxiety and depression ; Antibiotic-induced yeast infection; Chronic obstructive pulmonary disease, unspecified ([facility]); Hyperlipidemia, unspecified ; Vaginal yeast infection; Morbid (severe) obesity due to excess calories ([facility]) Start: 01-06-2025 End: 01-06-2025 ambulatory [facility] Start: 12-18-2024 End: 12-19-2024 Refill Mckayla Blas QUALITY ENG Work Phone: [facility] Comment on above: Hyperlipidemia, unsp ecified ; Tobacco user; Encounter for smoking cessation counseling Start: 12-09-2024 End: 12-09-2024 Bamboo flowsheet Mckayla Blas QUALITY ENG Work Phone: [facility] Start: 12-09-2024 End: 12-09-2024 Bamboo flowsheet Mckayla Blas QUALITY ENG Work Phone: [facility] Start: 12-09-2024 End: 12-09-2024 ambulatory MCKAYLA WAN Not Available Start: 12-09-2024 End: 12-09-2024 Office outpatient visit 25 minutes Mckayla Blas QUALITY ENG Work Phone: [facility] Comment on above: Cellulitis of left l ower extremity (Primary Dx); COPD exacerbation (CMS/HCC); Primary hypertension (CMS/HCC); Pulmonary hypertension (CMS/HCC); Morbid (severe) obesity due to excess calories (CMS/HCC); Type 2 diabetes mellitus with complication, with long-term current use of insulin ([facility]CC); Anxiety and depression (CMS/HCC); Fever, unspecified fever cause Start: 12-04-2024 End: 12-07-2024 Clinisync Result Encounter Generic External Data Provider [facility] External Department Unsolicited Start: 12-04-2024 End: 12-07-2024 Clinisync Result Encounter Generic External Data Provider [facility] External Department Unsolicited Start: 10-27-2024 End: 10-27-2024 ambulatory MCKAYLATaryn BLAS Not Available Start: 10-27-2024 End: 10-27-2024 Office outpatient visit 25 minutes Mckayla Blas QUALITY ENG Work Phone: [facility] Comment on above: Primary hypertension (CMS/HCC) (Primary Dx); Diabetic polyneuropathy associated with type 2 diabetes mellitus ([facility]/HCC); Chronic diastolic heart failure ([facility]/HCC); Bilateral lower extremity edema; Morbid (severe) obesity due to excess calories ([facility]/HCC); Type 2 diabetes mellitus with complication, with long-term current use of insulin ([facility]); Anxiety and depression ([facility]); Cigarette nicotine dependence without complication; Encounter for screening mammogram for malignant neoplasm of breast; Insomnia; Non-seasonal allergic rhinitis, unspecified trigger; Type 2 diabetes mellitus with unspecified complications; Vitamin D deficiency, unspecified; Gastro-esophageal reflux disease without esophagitis; PAD (peripheral artery disease) ([facility]/HCC); Gastroesophageal reflux disease, unspecified whether esophagitis present; Venous ulcer of right leg ([facility]/HCC) Start: 10-21-2024 End: 10-21-2024 Refill Mckayla Blas QUALITY ENG Work Phone: [facility] Comment on above: Chronic obstructive pulmonary disease, unspecified Start: 10-08-2024 End: 10-08-2024 Clinisync Result Encounter Mckayla Blas NP Work Phone: [facility] External Department Unsolicited Start: 10-08-2024 End: 10-08-2024 Clinisync Result Encounter Mckayla Blas NP Work Phone: [facility] External [facility] Unsolicited Start: 10-08-2024 End: 10-08-2024 [...] minutes Mckayla Blas NP Work Phone: [facility] Comment on above: Anxiety and depressi [...] cessation counseling; Venous ulcer of right leg ([facility]); Antibiotic-induced yeast infection Start: 08-27-2024 End: 08-27-2024 ambulatory MCKAYLA AICHHOLZ Not Available Start: 08-27-2024 End: 08-27-2024 Clinisync Result Encounter Generic External Data Provider [facility] External Department Unsolicited Start: 08-27-2024 End: 08-27-2024 Clinisync Result Encounter Generic External Data Provider [facility] External Department Unsolicited Start: 08-08-2024 End: 08-08-2024 ambulatory [facility] Start: 07-17-2024 End: 07-17-2024 Refill Mckayla Chetz QUALITY ENG Work Phone: [facility] Start: 07-14-2024 End: 07-14-2024 Office outpatient visit 25 minutes Mckayla Blas QUALITY ENG Work Phone: [facility] Comment on above: Primary hypertension (CMS/[facility]) (Primary Dx); Diabetic polyneuropathy associated with type 2 diabetes mellitus ([facility]); Pulmonary emphysema, unspecified emphysema type (CMS/HCC); Critical limb ischemia of right lower extremity (CMS/HCC); PAD (peripheral artery disease) ([facility]/HCC); Gastroesophageal reflux disease, unspecified whether esophagitis present; Bilateral lower extremity edema; Venous ulcer of right leg ([facility]); Type 2 diabetes mellitus with complication, with long-term current use of insulin ([facility]); Tobacco user; Encounter for smoking cessation counseling; Kidney stone; Adrenal mass 1 cm to 4 cm in diameter ([facility]/HCC); Radiculopathy, lumbar region; Non-seasonal allergic rhinitis, unspecified trigger; Type 2 diabetes mellitus with unspecified complications (CMS/HCC) Start: 07-14-2024 End: 07-14-2024 ambulatory MCKAYLA AICHHOLZ Not Available Start: 07-05-2024 End: 07-07-2024 Refill Mckayla Chetz QUALITY ENG Work Phone: [facility] Comment on above: Bilateral lower extr emity edema Start: 06-11-2024 ambulatory Elbert ARAUZ Tabathai ty:SHEA [place] Start: 06-11-2024 End: 06-11-2024 Patient encounter procedure Elbert ARAUZ [facility] [place] Start: 05-27-2024 End: 05-27-2024 Bamboo flowsheet [...] 04-14-2024 End: 04-14-2024 Bamboo flowsheet Mckayla Blas NP Work Phone: [facility] Start: 04-14-2024 End: 10-07-2024 Bamboo flowsheet Mckayla Blas QUALITY ENG Work Phone: [facility] Start: 04-14-2024 End: 04-14-2024 Office outpatient visit 25 minutes Mckayla Blas QUALITY ENG Work Phone: [facility] Comment on above: Primary hypertension (CMS/HCC) (Primary Dx); Insomnia; Type 2 diabetes mellitus with complication, with long-term current use of insulin (CMS/[facility]); Non-seasonal allergic rhinitis, unspecified trigger; Type 2 diabetes mellitus with unspecified complications (CMS/HCC); Anxiety and depression ([facility]); Gastro-esophageal reflux disease without esophagitis; Edema, unspecified; Edema; Diabetic polyneuropathy associated with type 2 diabetes mellitus (CMS/HCC); Chronic obstructive pulmonary disease, unspecified (CMS/HCC); Pulmonary emphysema, unspecified emphysema type ([facility]); Bilateral lower extremity edema; Tobacco user; Hyperpigmentation of skin Start: 04-14-2024 End: 04-14-2024 ambulatory MCKAYLA AICHHOLZ Not Available Start: 04-05-2024 End: 04-06-2024 Refill Mckayla Harshadholz QUALITY ENG Work Phone: [facility] Comment on above: Hyperlipidemia, unsp ecified (CMS/HCC); Bilateral lower extremity edema Vitamin D deficiency , unspecified Start: 01-17-2024 Patient encounter procedure Rain Souza MD Work Phone: [facility] Start: 08-17-2023 Refill Mckayla Harshadholz QUALITY ENG Work Phone: [facility] Comment on above: Vaginal yeast infect ion (Primary Dx) Start: 08-14-2023 Refill Mckayla Aichholz QUALITY ENG Work Phone: [facility] Comment on above: Type 2 diabetes asiya itus with unspecified complications (CMS/HCC); Edema, unspecified; Edema Start: 12-05-2022 ambulatory NARENDRANATH LAKSHMIPATHY . Facility: Start: 12-05-2022 End: 12-06-2022 Evaluation and management of inpatient UMBERTO ALONDRA . Facility:[facility] Start: 11-23-2022 End: 11-23-2022 ambulatory SAYDA BLAS Facility:[facility] Start: 11-22-2022 End: 11-23-2022 ambulatory SAYDA BLAS Facility:[facility] Start: 11-17-2022 End: 11-18-2022 ambulatory SUBHASH GASPAR . Facility:[facility] Start: 11-15-2022 End: 11-15-2022 Patient encounter procedure SARAH VEGA [facility] Start: 10-05-2022 End: 10-05-2022 ambulatory MARIANO DIAB . Facility:[facility] Start: 09-21-2022 End: 09-21-2022 ambulatory SAYDA BLAS Facility:[facility] Start: 09-14-2022 ambulatory RAFAEL GONGORA Mounika y:[facility] Start: 08-24-2022 End: [address] CHAPARRO MORTENSEN . Facility:[facility] Start: 08-21-2022 End: 08-22-2022 [facility] Start: 07-27-2022 End: 07-28-2022 ambulatory CECILIA TORRES . Facility:[facility] Start: 07-18-2022 End: 07-19-2022 ambulatory CECILIA TORRES . Facility:[facility] Start: 07-18-2022 End: 07-19-2022 ambulatory [facility] Start: 07-06-2022 End: 07-06-2022 ambulatory SAYDA BERMUDEZCayetanoJODIE Facility:[facility] Start: 05-11-2022 End: 05-12-2022 ambulatory GIL VALENZUELA . Facility:[facility] Start: 04-25-2022 End: 04-25-[address] CHAPARRO MORTENSEN . Facility:[facility] Start: 04-20-2022 End: 04-21-2022 ambulatory GIL VALENZUELA . 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 Wilfredo Start: 01-19-2022 End: 01-20-2022 ambulatory GIL VALENZUELA . Facility:[facility] Start: 12-24-2021 End: 12-24-2021 ambulatory OLE ASHLEY Facility: Start: 08-26-2020 End: 09-10-2020 Patient encounter procedure MARY TAVERAS Facility:[facility] Start: 10-30-2019 End: 10-30-2019 Emergency department patient visit [facility] Start: 10-30-2019 End: 10-30-2019 Emergency department patient visit [facility] Emergency Department Start: 11-02-2016 Preoperative state Stephanie Tico Other [employer] Other Procedures Date Procedure Procedure Detail Performing [...] Rain Souza MD Work Phone: Start: 10-08-2024 [facility] UA (CLEAN/CATCH) MICROSCOPIC IF INDICATE Mckayla Blas QUALITY ENG Work Phone: Start: 08-27-2024 ALL CBC WITH AUTO DIFF Generic External Data Provider Start: 05-27-2024 Gluc bld gluc mntr d ev cleared fda spec home use Rain Souza MD Work Phone: Start: 05-12-2024 [facility] CREATININE Generic External Data Provider Start: 12-14-2023 Mammography Rain urena MD Work Phone: Start: 11-22-2022 Mammography Mckayla Sowmya clifford QUALITY ENG Work Phone: Start: 10-08-2015 Microscopic observat ion [Identifier] in Cervix by Cyto stain Mckayla Blas QUALITY ENG Work Phone: H/O: hysterectomy Elbert TIKA MARCO Laparoscopic cholecystectomy Elbert ARAUZ Operative procedure on foot Elbert ARAUZ Plan of Treatment Date Care Activity Detail Author Start: 02-01-2026 End: 02-01-2026 Patient encounter procedure [facility] Start: 01-26-2026 Medicare Annual Wellness (AWV) Medicare Annual Wellness (AWV) [facility] Start: 10-08-2025 Urine screening for protein Diabetes: Urine Protein Screening [facility] Start: 08-03-2025 Screening for malignant neoplasm of colon [facility] Start: 07-14-2025 Glaucoma screening Diabetes: R etinopathy Screening [facility] Start: 05-28-2025 End: 05-28-2025 Patient encounter procedure [facility] Start: 05-13-2025 Glaucoma screening Diabetes: R etinopathy Screening [facility] Start: 05-01-2025 Hemoglobin A1c measurement Diabetes: Hemoglobin A1C [facility] Start: 04-29-2025 End: 04-29-2025 Patient encounter procedure [facility] Start: 03-09-2025 Influenza vaccination [facility] Start: 01-28-2025 End: 01-28-2025 Patient encounter procedure 01/28/2025 10:50 AM EDT Office Visit [facility] [address] [place] [phone] Rain Souza MD [address] [place] [address] [facility] Start: 01-26-2025 End: 01-26-2025 Patient encounter procedure 01/26/2025 6:00 PM EDT Office Visit [facility] [address] [place] [phone] Mckayla Blas NP [address] [place] [phone] [facility] Start: 01-16-2025 Medicare Annual Wellness (AWV) Medicare Annual Wellness (AWV) [facility] Start: 01-07-2025 Hemoglobin A1c measurement Diabetes: Hemoglobin A1C [facility] Start: 12-15-2024 End: 12-27-2025 MG Breast - bilateral Screening Bilateral screening mammogram Imaging Routine Encounter for screening mammogram for malignant neoplasm of breast Expected: 12/15/2024 (Approximate), Expires: 12/27/2025 [facility] Work Phone: Comment on above: Expected: 12/15/2024 (Approximate), Expires: 12/27/2025 Start: 12-13-2024 Screening for malignant neoplasm of breast Mammogram [facility] Start: 11-11-2024 Urine screening for protein Diabetes: Urine Protein Screening [facility] Start: 10-27-2024 End: 10-27-2024 Patient encounter procedure 10/27/2024 2:00 PM EDT [facility] [address] [place] [phone] Mckayla Blas NP [address] [place] [phone] [facility] Start: 10-08-2024 End: 10-08-2024 Patient encounter procedure 10/08/2024 11:20 AM EDT Office Visit [facility] [address] [place] [phone] Rain Souza MD [address] [place] [address] [facility] Start: 08-27-2024 End: 08-27-2024 Patient encounter procedure 08/27/2024 5:30 PM EST Office Visit [facility] [address] [place] [address] Mckayla Blas, QUALITY ENG [address] [place] [address] [facility] Start: 08-27-2024 End: 08-27-2025 25-hydroxyvitamin D3 [Mass/volume] in Serum or Plasma Vitamin D 25 hydroxy Lab Routine Vitamin deficiency Expected: 08/27/2024 (Approximate), Expires: 08/27/2025 [facility] Comment on above: Expected: 08/27/2024 (Approximate), Expires: 08/27/2025 Start: 08-27-2024 Hemoglobin A1c measurement Diabetes: Hemoglobin A1C [facility] Start: 08-27-2024 End: 08-27-2025 Hepatic function 2000 panel - Serum or Plasma Hepatic function panel Lab Routine Hyperlipidemia, unspecified (CMS/HCC) Expected: 08/27/2024 (Approximate), Expires: 08/27/2025 [facility] Comment on above: Expected: 08/27/2024 (Approximate), Expires: 08/27/2025 Start: 08-27-2024 End: 08-27-2025 Lipid 1996 panel - Serum or Plasma Lipid panel Lab Routine Mixed hyperlipidemia (CMS/HCC) Expected: 08/27/2024 (Approximate), Expires: 08/27/2025 [facility] Work Phone: Comment on above: Expected: 08/27/2024 (Approximate), Expires: 08/27/2025 Start: 08-27-2024 End: 08-27-2025 Microalbumin/Creatini ne panel in random Urine Microalbumin / creatinine, urine ratio Lab Routine Primary hypertension ([facility]) Type 2 diabetes mellitus with complication, with long-term current use of insulin ([facility] [facility]) Expected: 08/27/2024 (Approximate), Expires: 08/27/2025 [facility] Comment on above: Expected: 08/27/2024 (Approximate), Expires: 08/27/2025 Start: 08-27-2024 End: 08-27-2025 Urate [Mass/volume] in Serum or Plasma Uric acid Lab Routine Gout, unspecified cause, unspecified chronicity, unspecified site Expected: 08/27/2024 (Approximate), Expires: 08/27/2025 [facility] Comment on above: Expected: 08/27/2024 (Approximate), Expires: 08/27/2025 Start: 08-27-2024 End: 08-27-2025 Urinalysis complete panel - Urine Urinalysis with reflex microscopic (clean catch) Lab Routine Primary hypertension ([facility]) Type 2 diabetes mellitus with complication, with long-term current use of insulin ([facility]) Tobacco user Gout, unspecified cause, unspecified chronicity, unspecified site Expected: 08/27/2024 (Approximate), Expires: 08/27/2025 [facility] Comment on above: Expected: 08/27/2024 (Approximate), Expires: 08/27/2025 Start: 08-26-2024 End: 08-26-2024 Patient encounter procedure 08/26/2024 10:30 AM EST Office Visit [facility] [address] [place] [phone] Rain Souza MD [address] [place] [address] [facility] Start: 07-14-2024 End: 07-14-2024 Patient encounter procedure 07/14/2024 6:30 PM EST Office Visit [facility] [address] [place] [phone] Mckayla Blas NP [address] [place] [address] [facility] Start: 07-14-2024 End: 07-14-2024 Patient encounter procedure 07/14/2024 10:10 AM EST Office Visit [facility] [address] [place] [address] Rain Souza MD [address] [place] [id number] [facility] Start: 06-06-2024 Influenza vaccination Influenza Vacc ine (#1) [facility] Comment on above: Postponed from 03/09 (Patient Refused) Start: 05-27-2024 End: 05-27-2024 Patient encounter procedure 05/27/2024 9:50 AM EST Office Visit [facility] [address] [place] [address] Rain Souza MD [address] [place] [address] [facility] Start: 05-17-2024 Hemoglobin A1c measurement Diabetes: Hemoglobin A1C [facility] Start: 05-15-2024 End: 05-15-2024 Chart abstracting 05/15/2024 Abstract [facility] [address] [place] [address] Rain Souza MD [address] [place] [address] [facility] Start: 05-15-2024 End: 05-15-2024 Patient encounter procedure 05/15/2024 11:20 AM EST Office Visit [facility] [address] [place] [phone] Rain Souza MD [address] [place] [phone] [facility] Start: 04-17-2024 End: 04-17-2024 Patient encounter procedure 04/17/2024 3:40 PM EDT Office Visit [facility] [address] [place] [address] Mckayla Blas, QUALITY ENG [address] [place] [phone] [facility] Start: 04-14-2024 End: 04-14-2024 Patient encounter procedure 04/14/2024 11:00 AM EDT Office Visit [facility] [address] [place] [phone] Mckayla Blas, QUALITY ENG [address] [place] [phone] Arrived [facility] Comment on above: Arrived Start: 03-09-2024 Influenza vaccination Influenza Vacc ine (#1) [facility] Start: 02-19-2024 Hemoglobin A1c measurement Diabetes: Hemoglobin A1C [facility] Start: 11-24-2023 Urine screening for protein Diabetes: Urine Protein Screening [facility] Start: 11-23-2023 Screening for malignant neoplasm of breast Mammogram [facility] Start: 10-15-2023 End: 10-15-2023 Patient encounter procedure 10/15/2023 4:30 PM EDT Office Visit [facility] [address] [place] [address] Mckayla Blas, QUALITY ENG [address] [place] [phone] [facility] Start: 08-09-2023 Hemoglobin A1c measurement Diabetes: Hemoglobin A1C [facility] Start: 05-27-2021 Glaucoma screening Diabetes: R etinopathy Screening [facility] Start: 03-09-2020 Influenza vaccination Flu vacc ine (Season Ended) [place], [place] Start: 10-07-2018 Screening for malignant neoplasm of cervix [facility] Start: 2010 Lipid panel Lipid screen [place], [place] Start: 2000 Screening for malignant neoplasm of cervix HPV/Cotest [facility] Start: 1991 Screening for malignant neoplasm of cervix Cervical cancer screen [place], [place] Start: 1989 DTaP/Tdap/Td vaccine (1 - Tdap) DTaP/Tdap/Td vaccine (1 - Tdap) [place] Start: 1985 [facility] [place] [place] Start: 1970 Medicare Annual Wellness (AWV) Medicare Annual Wellness (AWV) [facility] Start: 1970 Screening for malignant neoplasm of colon [facility] BLOOD CULTURE 1 BLOOD CULTURE 1 Lab Routine 12/04/2024 4:44 PM EDT [facility] BLOOD CULTURE 2 BLOOD CULTURE 2 Lab Routine 12/04/2024 5:28 PM EDT [facility] Immunizations Immunization Date Immunization Notes Care Provider [facility] 05-18-2023 influenza, injectabl e, quadrivalent, contains preservative Mckayla Blas NP Work Phone: [facility] 05-18-2023 influenza virus vacc ine, unspecified formulation Rain Souza MD Work Phone: [facility] 07-19-2021 SARS-CoV-2 (COVID-19 ) mRNA [id number] vax [employer] [facility] 10-28-2020 SARS-CoV-2 (COVID-19 ) mRNA [id number] vax [employer] [facility] 10-08-2020 SARS-CoV-2 (COVID-19 ) mRNA [id number] vax [employer] [facility] 04-16-2017 influenza virus vacc ine, H5N1, A/[place] (national stockpile) Mckayla Blas QUALITY ENG Work Phone: [facility] 04-16-2017 influenza virus vacc ine, unspecified formulation Rain Souza MD Work Phone: [facility] 04-16-2017 influenza, unspecifi ed formulation Elbert ARAUZ [facility] 04-16-2017 pneumococcal polysaccharide vaccine, 23 valent Rain Souza MD Work Phone: [facility] 05-10-2016 influenza virus vacc ine, H5N1, A/ (national stockpile) Mckayla Blas QUALITY ENG Work Phone: [facility] 05-10-2016 influenza virus vacc ine, unspecified formulation Rain Souza MD Work Phone: [facility] 05-10-2016 influenza, unspecifi ed formulation Elbert ARAUZ [facility] 05-02-2013 influenza virus vacc ine, whole virus Rain Souza MD Work Phone: [facility] 05-02-2013 influenza, injectabl e, quadrivalent, contains preservative Mckayla Blas QUALITY ENG Work Phone: [facility] 05-02-2013 influenza, whole Elbert BARBARA ERS [facility] 01-29-1998 measles, mumps and rubella virus vaccine Rain Souza MD Work Phone: [facility] Payers Date Payer Category Payer Unknown [id number] 2023 Medicare (Managed Care) 1.2. [id number] 2023 Private Health Insurance [id number] 2023 Medicare [id number] 2018 Medicaid MEDICAID [facility] [id number] 2018-Present [phone] [address] [place] [address] Medicaid [id number] 2013 Medicare [id number] 1.13.693.2. [id number] 1970 Unknown [id number] 2.16.840.1.968088.3.579.2. 647 1970 Unknown [id number] 2.16.840.1.672939.3.579.2. 593 1970 Unknown [id number] 2.16.840.1.318445.3.579.2. 593 1970 Unknown [id number] 2.16.840.1.998105.3.579.2. 593 1970 Unknown [id number] 2.16.840.1.858546.3.579.2. 593 1970 Unknown [id number] 2.16.840.1.969996.3.579.2. 593 1970 Unknown [id number] 2.16.840.1.936321.3.579.2. 593 1970 Unknown [id number] 2.16.840.1.916770.3.579.2. 593 1970 Unknown [id number] 2.16.840.1.050354.3.579.2. 593 1970 Unknown [id number] 2.16.840.1.640278.3.579.2. 593 1970 Unknown [id number] 2.16.840.1.820883.3.579.2. 593 1970 Unknown [id number] 2.16.840.1.805875.3.579.2. 593 1970 Unknown [id number] 2.16.840.1.764483.3.579.2. 593 1970 Unknown [id number] 2.16.840.1.195430.3.579.2. 593 1970 Unknown [id number] 2.16.840.1.098456.3.579.2. 593 1970 Unknown [id number] 2.16.840.1.218860.3.579.2. 593 1970 Unknown [id number] 2.16.840.1.843293.3.579.2. 593 1970 Unknown [id number] 2.16.840.1.621272.3.579.2. 593 1970 Unknown [id number] 2.16.840.1.620307.3.579.2. 593 1970 Unknown [id number] 2.16.840.1.114130.3.579.2. 593 1970 Unknown [id number] 2.16.840.1.740552.3.579.2. 593 1970 Unknown [id number] 2.16.840.1.494663.3.579.2. 593 1970 Unknown [id number] 2.16.840.1.008631.3.579.2. 593 1970 Unknown [id number] 2.16.840.1.888331.3.579.2. 727 1970 Unknown [id number] 2.16.840.1.041749.3.579.2. 727 1970 Unknown [id number] 2.16.840.1.648308.3.579.2. 1259 1970 Unknown [id number] 2.16.840.1.990410.3.579.2. 1259 1970 Unknown [id number] 2.16.840.1.998405.3.579.2. 1259 1970 Unknown [id number] 2.16.840.1.645518.3.579.2. 1259 1970 Unknown [id number] 2.16.840.1.671502.3.579.2. 1259 1970 Unknown [id number] 2.16.840.1.914993.3.579.2. 9 1970 Unknown [id number] 2.16.840.1.410760.3.579.2. 1259 1970 Unknown [id number] 2.16.840.1.602005.3.579.2. 9 1970 Unknown [id number] 2.16.840.1.556282.3.579.2. 9 1970 Unknown [id number] 2.16840.1.902197.3.579.2. 196 1970 Unknown [id number] 2.16.840.1.276076.3.579.2. 196 1970 Unknown [id number] 2.16.840.1.548608.3.579.2. 196 1970 Unknown [id number] 2.16.840.1.008546.3.579.2. 196 1970 Unknown [id number] 2.16840.1.008988.3.579.2. 196 1970 Unknown [id number] 2.16840.1.269901.3.579.2. 196 1959 Medicaid [id number] 1959 Private Health Insurance [id number] 1959 Unknown [id number] 2.840.1.817505.19 Medicare Medicare [id number] Private Health Insurance [facility] [id number] Unknown Regular Auto/Liability [id number] Social History Date Type Detail Facility Start: 02-17-2014 End: 12-13-2017 Tobacco smoking status NHIS Current every day smoker [place], [place] Start: 02-17-1994 History of tobacco use Cigarette Smo ker [place] Start: 02-17-2014 End: 08-26-2024 Cigarettes smoked current (pack per day) - Reported [place] Start: 02-17-2014 Alcohol intake Current drinke r of alcohol (finding) [place] Start: 02-17-2014 Alcohol Comment Rare [facility] [place] Start: 1970 Sex Assigned At Not on file M [place], [place] Exposure to SARS-CoV -2 (event) Unable to assess [place] Start: 02-06-2022 Tobacco smoking status Smoker (findi ng) [facility] Start: 07-10-2023 End: 08-26-2024 Sex Assigned At Female [facility] Start: 11-15-2022 End: 06-11-2024 Tobacco smoking status Heavy tobacco smoker (finding) [facility] Start: 07-10-2023 End: 01-29-2025 Tobacco use and exposure Smokeless tobacco non-user [facility] Start: 07-10-2023 End: 01-29-2025 Alcohol intake Lifetime non-drinker (finding) [facility] Within the last year , have you been afraid of your partner or ex-partner? No [facility] Do you belong to any clubs or organizations such as sikhism groups, unions, fraternal [...] [facility] Sex Female (finding) [facility] Start: 1970 Sex Assigned At Female F [facility] NEGATED: Highlighted row N [facility] Medical Equipment Procedure Code Equipment Code Equipment Origin al Text Equipment Identifier Dates [id number] Start: 01-18-2024 USE TO TEST BLOO D SUGAR 4 TIMES DAILY [id number] Start: 07-07-2024 Functional Status Date Assessment Result Facility 01-26-2025 Patient Health [facility] ionnaire 2 item (PHQ-2) [Reported] [facility] 01-26-2025 Trouble falling or s taying asleep, or sleeping too much Not at all 01/26/2025 4:13 PM EDT Mychart, Generic Not at all [facility] 01-26-2025 Feeling tired or hav ing little energy Not at all 01/26/2025 4:13 PM EDT Mychart, Generic Not at all [facility] 01-26-2025 Poor appetite or overeating Not at all 01/26/2025 4:13 PM EDT Mychart, Generic Not at all [facility] 01-26-2025 Feeling bad about yourself-or that you are a failure or have let yourself or your family down Not at all 01/26/2025 4:13 PM EDT Mychart, Generic Not at all [facility] 01-26-2025 Trouble concentratin g on things, such as reading the newspaper or watching television Not at all 01/26/2025 4:13 PM EDT Mychart, Generic Not at all [facility] 01-26-2025 Moving or speaking s o slowly that other people could have noticed. Or the opposite - being so fidgety or restless that you have been moving around a lot more than usual Not at all 01/26/2025 4:13 PM EDT Mychart, Generic Not at all [facility] 01-26-2025 Thoughts that you wo uld be better off , or of hurting yourself in some way Not at all 01/26/2025 4:13 PM EDT Mychart, Generic Not at all [facility] 06-11-2024 Functional Status N/A [facility] 11-15-2022 Functional Status N/A [facility] 02-06-2022 Functional Status N/A [facility] Clinical Notes 01-19-2022 to 02-04-2025 Rain [...] Follow-up as planned in 6 months. Thanks! [facility] 01-29-2025 History of Present illness [...] 25 mg, Oral, 2 times daily HYDROcodone-acetaminophen ([place]) 5-325 MG tablet 1 tablet, 3 times [...] Anxiety and depression 07/10/2023 Asthma ([facility]) 07/10/2023 Body mass index (BMI) 50.0-59.9, adult ([facility]) Cellulitis of left lower extremity Cervical cancer ([facility]) 09/17/2023 Chronic pain of both knees 09/17/2023 COPD (chronic obstructive pulmonary disease) ([facility]) 07/10/2023 COPD exacerbation ([facility]) 09/17/2023 Decreased functional mobility 09/17/2023 Diabetic neuropathy ([facility]) 07/10/2023 Dietary counseling and surveillance Edema 07/10/2023 Elevated sed rate Elevated WBC count Essential (primary) hypertension GERD (gastroesophageal reflux disease) 09/17/2023 Hyperlipidemia 09/17/2023 Hypertension 07/10/2023 Insomnia 09/17/2023 nursing home (current) use of insulin ([facility]) Lower extremity edema 09/17/2023 Mixed hyperlipidemia Morbid (severe) obesity due to excess calories ([facility]) Obstructive sleep apnea 07/10/2023 PAD (peripheral artery disease) 09/17/2023 Pancreatitis ([facility]) 09/17/2023 Pneumonia 09/17/2023 Proteinuria, unspecified Pulmonary hypertension ([facility]) 09/17/2023 Radiculopathy, lumbar region 09/17/2023 Tobacco user 09/17/2023 Type 2 diabetes mellitus with complication, with long-term current use of insulin ([facility]) 07/10/2023 Unilateral primary osteoarthritis, right hip [...] D deficiency Primary hypertension Insulin long-term use ([facility]) Hyperlipemia, mixed Microalbuminuria Class 3 severe obesity due to excess calories with serious comorbidity and body mass index (BMI) of 50.0 to 59.9 in adult ([facility]) Diet and exercise reviewed with the patient Follow up in about 4 months (around 06/01/2025). documented in this encounter [facility] 01-26-2025 History of Present illness Narrative Associated Problem(s): Anxiety and depression Current meds: elavil, duloxtine, Associated Problem(s): Morbid (severe) obesity due to excess calories ([facility]) Discussed with patient their BMI (actual, verses [...] Asthma (HCC) Current meds: albuterol, duoneb, Has matchbook maker 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 Associated Problem(s): COPD (chronic [...] 25 mg, Oral, 2 times daily HYDROcodone-acetaminophen ([place]) 5-325 MG tablet 1 tablet, 3 times [...] Anxiety and depression 07/10/2023 Asthma ([facility]) 07/10/2023 Body mass index (BMI) 50.0-59.9, adult ([facility]) Cellulitis of left lower extremity Cervical cancer ([facility]) 09/17/2023 Chronic pain of both knees 09/17/2023 COPD (chronic obstructive pulmonary disease) ([facility]) 07/10/2023 COPD exacerbation ([facility]) 09/17/2023 Decreased functional mobility 09/17/2023 Diabetic neuropathy ([facility]) 07/10/2023 Dietary counseling and surveillance Edema 07/10/2023 Elevated sed rate Elevated WBC count Essential (primary) hypertension GERD (gastroesophageal reflux disease) 09/17/2023 Hyperlipidemia 09/17/2023 Hypertension 07/10/2023 Insomnia 09/17/2023 nursing home (current) use of insulin ([facility]) Lower extremity edema 09/17/2023 Mixed hyperlipidemia Morbid (severe) obesity due to excess calories ([facility]) Obstructive sleep apnea 07/10/2023 PAD (peripheral artery disease) 09/17/2023 Pancreatitis ([facility]) 09/17/2023 Pneumonia 09/17/2023 Proteinuria, unspecified Pulmonary hypertension ([facility]) 09/17/2023 Radiculopathy, lumbar region 09/17/2023 Tobacco user 09/17/2023 Type 2 diabetes mellitus with complication, with long-term current use of insulin ([facility]) 07/10/2023 Unilateral primary osteoarthritis, right hip [...] List Items Addressed This Visit Diabetic neuropathy ([facility]) Continue with cintia hudson mgmt is prescribing OARRS reviewed Fu in 3 months Goal: tighter glucose control, this has been improving, latest A1c is 7.4%!!! COPD (chronic obstructive pulmonary disease) ([facility]) Follows with [facility] Needs smoking cessation Current meds: duoneb, albuterol, daliresp, Asthma ([facility]) Current meds: albuterol, duoneb, Has matchbook maker 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 Hypertension Please check blood [...] long-term current use of insulin ([facility]) Check blood sugars daily, notify if [...] MG tablet Pulmonary hypertension (HCC) Has seen [facility] Cardiology Hyperlipidemia On statin [...] Morbid (severe) obesity due to excess calories ([facility]) Discussed with patient their BMI (actual, verses [...] Associated Problem(s): Pulmonary hypertension (HCC) Has seen [facility] Cardiology Associated Problem(s): Hypertension [...] yearly basis documented in this encounter [facility] 01-26-2025 Instructions Mckayla Blas NP - 01/26/2025 6:00 PM EDT Please call the [facility] to schedule your mammogram: [phone]- ext [phone] documented in this encounter [facility] 01-06-2025 Note Cardiovascular Medic ine [facility] SUBJECTIVE Chief Complaint Patient presents with Congestive Heart Failure Hypertension Hyperlipidemia Mitzi Macias is a 54 y.o. female here for follow-up. PMHx: HFpEF, HTN, HLD, DM, longstanding heavy smoker, COPD, DANIEL, morbid obesity HPI 01/06/2025 Since last seen she was admitted to [facility] for AMS on 12/05/2024. She was [...] complication, with long-term current use of insulin ([facility]) Unilateral primary osteoarthritis, right hip Vaginal yeast infection Venous insufficiency Bad odor of urine Critical limb ischemia of right lower extremity ([facility]) Hyperpigmentation of skin 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 2 diabetes mellitus ([facility]) Myelolipoma of adrenal gland Venous ulcer of right leg ([facility]) Chronic diastolic heart failure ([facility]) Antibiotic-induced yeast infection Cellulitis of left lower extremity Cigarette nicotine dependence without complication Fever Idiopathic chronic venous hypertension of both lower extremities with ulcer ([facility]) nursing home current use of inhaled steroid Vitamin D deficiency, unspecified Vitamin deficiency Past Medical History: Diagnosis Date COPD (chronic obstructive pulmonary disease) ([facility]) Diabetes mellitus ([facility]) Hyperlipidemia Hypertension Sleep apnea Family History [...] , Rfl: ergocalciferol (Vitamin D-2) 1.25 MG (66325 Units) capsule, Take 1.25 mg by mouth., [...] and at bedtime., Disp: , Rfl: HYDROcodone-acetaminophen ([place]) 5-325 mg tablet, TAKE 1 TABLET BY MOUTH THREE TIMES A DAY NEEDED FOR PAIN MUST LAST 30 DAYS, Disp: , Rfl: insulin aspart (NovoLOG) 100 unit/mL (3 mL) injection pen, Novolog Flexpen U-100 Insulin aspart 100 unit/mL (3 mL) subcutaneous, Disp: , Rfl: insulin glargine (Lantus Solostar U-100 Insulin) 100 unit/mL (3 mL) injection pen (more content not included)... [facility] 01-06-2025 Note Patient is here [...] weight gain. Cardiovascular: Positive for leg swelling. [facility] 12-09-2024 History of Present illness [...] bad light. She was ultimately taken to [facility] ER, no tox screen was done [...] 25 mg, Oral, 2 times daily HYDROcodone-acetaminophen ([place]) 5-325 MG tablet 1 tablet, 3 times [...] CT Albuminuria 09/17/2023 Angiomyolipoma Anxiety and depression ([facility]) 07/10/2023 Asthma 07/10/2023 Body mass index (BMI) 50.0-59.9, adult ([facility]) Cellulitis of left lower extremity Cervical cancer ([facility]) 09/17/2023 Chronic pain of both knees 09/17/2023 COPD (chronic obstructive pulmonary disease) ([facility]) 07/10/2023 COPD exacerbation ([facility]) 09/17/2023 Decreased functional mobility 09/17/2023 Diabetic neuropathy ([facility]) 07/10/2023 Dietary counseling and surveillance Edema 07/10/2023 Elevated sed rate Elevated WBC count Essential (primary) hypertension ([facility]) GERD (gastroesophageal reflux disease) 09/17/2023 Hyperlipidemia ([facility]) 09/17/2023 Hypertension ([facility]) 07/10/2023 Insomnia 09/17/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 ([facility]) Lower extremity edema 09/17/2023 Mixed hyperlipidemia ([facility]) Morbid (severe) obesity due to excess calories ([facility]) Obstructive sleep apnea 07/10/2023 PAD (peripheral artery disease) ([facility]) 09/17/2023 Pancreatitis 09/17/2023 Pneumonia 09/17/2023 Proteinuria, unspecified Pulmonary hypertension ([facility] [facility]) 09/17/2023 Radiculopathy, lumbar region 09/17/2023 Tobacco user 09/17/2023 Type 2 diabetes mellitus with complication, with long-term current use of insulin ([facility]) 07/10/2023 Unilateral primary osteoarthritis, right hip [...] Problem List Items Addressed This Visit Hypertension ([facility]) Please check blood pressure daily and record DASH diet Limit caffeine Take medication as directed Contact office if chest pain, pressure, dizziness, shortness of breath, swelling legs Recommend slow position changes Current meds: hydralazine, lisinopril, Type 2 diabetes mellitus with complication, with long-term current use of insulin ([facility]) Check blood sugars daily, notify if [...] secondary to her steroids Anxiety and depression ([facility]) Current meds: elavil, duloxtine, COPD exacerbation ([facility]) Recent ER visit for unresponsiveness , found to have fever and elevated WBC Sent home with steroids and atb Breathing is better and she feels back to her normal baseline Does have home O2, she is not wearing this today Pulmonary hypertension ([facility]) Has seen [facility] Cardiology Morbid (severe) obesity due to excess calories ([facility]) Discussed with patient their BMI (actual, [...] Finish atb's Associated Problem(s): Anxiety and depression ([facility]) Current meds: elavil, duloxtine, Associated Problem(s): Type 2 diabetes mellitus with complication, with long-term current use of insulin ([facility]) Check blood sugars daily, notify if [...] Associated Problem(s): Pulmonary hypertension (CMS/HCC) Has seen [facility] Cardiology Associated Problem(s): Hypertension [...] this today documented in this encounter [facility] 12-09-2024 Instructions Mckayla Blas NP - 12/09/2024 10:00 AM EDT Keep appt with wound care today Keep fu with me, sooner if needed documented in this encounter [facility] 10-27-2024 History of Present illness Narrative [...] 25 mg, Oral, 2 times daily HYDROcodone-acetaminophen ([place]) 5-325 MG tablet 1 tablet, 3 times [...] rate Elevated WBC count Essential (primary) hypertension ([facility]) GERD (gastroesophageal reflux disease) 09/17/2023 Hyperlipidemia ([facility]) 09/17/2023 Hypertension ([facility]) 07/10/2023 Insomnia 09/17/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 ([facility]) Lower extremity edema 09/17/2023 Mixed hyperlipidemia ([facility]) Morbid (severe) obesity due to excess calories ([facility]) Obstructive sleep apnea 07/10/2023 PAD (peripheral artery disease) ([facility]) 09/17/2023 Pancreatitis 09/17/2023 Pneumonia 09/17/2023 Proteinuria, unspecified Pulmonary hypertension ([facility]) [...] List Items Addressed This Visit Diabetic neuropathy ([facility]) - Primary Continue with cintia hudson mgmt is prescribing OARRS reviewed Fu in 3 months Goal: tighter glucose control, this has been improving, latest A1c is 7.4%!!! Hypertension ([facility]) Please check blood pressure daily and record DASH diet Limit caffeine Take medication as directed Contact office if chest pain, pressure, dizziness, shortness of breath, swelling legs Recommend slow position changes Current meds: hydralazine, lisinopril, Relevant Medications hydrALAZINE (Apresoline) 25 MG tablet lisinopril 20 MG tablet Type 2 diabetes mellitus with complication, with long-term current use of insulin ([facility]) Check blood sugars daily, notify if [...] Relevant Medications ergocalciferol (Vitamin D2) 1.25 MG (05307 UT) capsule Gastro-esophageal reflux disease without esophagitis Relevant Medications omeprazole (PriLOSEC) [address] tanja Other Visit Diagnoses Type 2 diabetes mellitus with unspecified complications Relevant Medications dapagliflozin (Farxiga) 10 MG Associated Problem(s): Cigarette nicotine dependence without complication Is currently using chantix, and is doing well, less desire, smoking less Associated Problem(s): Anxiety and depression ([facility]) Current meds: elavil, duloxtine, Associated Problem(s): Type 2 diabetes mellitus with complication, with long-term current use of insulin ([facility]) Check blood sugars daily, notify if [...] is 7.4%!!! documented in this encounter [facility] 10-27-2024 Instructions Mckayla Blas NP - 10/27/2024 2:00 PM EDT No dose changes in meds You will be due for mammogram I will send order to [facility], they should call you to schedule If no call, please call [phone] ext [phone] documented in this encounter [facility] 10-08-2024 History of Present illness Narrative [...] or chew. ergocalciferol (Vitamin D2) 1.25 MG (34818 UT) capsule TAKE 1 CAPSULE BY MOUTH [...] 25 mg, Oral, 2 times daily HYDROcodone-acetaminophen ([place]) 5-325 MG tablet 1 tablet, 3 times [...] CT Albuminuria 09/17/2023 Angiomyolipoma Anxiety and depression ([facility]) 07/10/2023 Asthma ([facility]) 07/10/2023 Body mass index (BMI) 50.0-59.9, adult ([facility]) Cellulitis of left lower extremity Cervical cancer ([facility]) 09/17/2023 Chronic pain of both knees 09/17/2023 COPD (chronic obstructive pulmonary disease) ([facility]) 07/10/2023 COPD exacerbation ([facility]) 09/17/2023 Decreased functional mobility 09/17/2023 Diabetic neuropathy ([facility]) 07/10/2023 Dietary counseling and surveillance Edema 07/10/2023 Elevated sed rate Elevated WBC count Essential (primary) hypertension ([facility]) GERD (gastroesophageal reflux disease) 09/17/2023 Hyperlipidemia ([facility]) 09/17/2023 Hypertension ([facility]) 07/10/2023 Insomnia 09/17/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 ([facility]) Lower extremity edema 09/17/2023 Mixed hyperlipidemia ([facility]) Morbid (severe) obesity due to excess calories ([facility]) Obstructive sleep apnea 07/10/2023 PAD (peripheral artery disease) ([facility]) 09/17/2023 Pancreatitis 09/17/2023 Pneumonia 09/17/2023 Proteinuria, unspecified Pulmonary hypertension ([facility]) [...] hyperglycemia, with long-term current use of insulin ([facility]) - POCT glucose manually resulted - POCT glycosylated hemoglobin (Hb A1C) docked device We will continue with Lantus 58, lispro 02-16-12 according to meal size, Mounjaro 15 mg once weekly, Farxiga 5 mg once a day. Encounter for dietary consultation Vitamin D deficiency Primary hypertension ([facility]) Insulin long-term use ([facility]) Hyperlipemia, mixed ([facility]) Microalbuminuria Class 3 severe obesity due to excess calories with serious comorbidity and body mass index (BMI) of 50.0 to 59.9 in adult Diet and exercise reviewed with the patient Follow up in about 4 months (around 02/07/2025). documented in this encounter [facility] 08-27-2024 History of Present illness Narrative [...] or chew. ergocalciferol (Vitamin D2) 1.25 MG (77918 UT) capsule TAKE 1 CAPSULE BY MOUTH [...] 25 mg, Oral, 2 times daily HYDROcodone-acetaminophen ([place]) 5-325 MG tablet 1 tablet, 3 times [...] 09/17/2023 Decreased functional mobility 09/17/2023 Diabetic neuropathy ([facility]) 07/10/2023 Dietary counseling and surveillance Edema 07/10/2023 Elevated sed rate Elevated WBC count Essential (primary) hypertension ([facility]) GERD (gastroesophageal reflux disease) 09/17/2023 Hyperlipidemia ([facility]) 09/17/2023 Hypertension ([facility]) 07/10/2023 Insomnia 09/17/2023 nursing home (current) use of insulin ([facility]) Lower extremity edema 09/17/2023 Mixed hyperlipidemia ([facility]) Morbid (severe) obesity due to excess calories ([facility]) Obstructive sleep apnea 07/10/2023 PAD (peripheral artery disease) ([facility]) 09/17/2023 Pancreatitis 09/17/2023 Pneumonia 09/17/2023 Proteinuria, unspecified Pulmonary hypertension ([facility]) 09/17/2023 Radiculopathy, lumbar region 09/17/2023 Tobacco user 09/17/2023 Type 2 diabetes mellitus with complication, with long-term [facility] 07/10/2023 Unilateral primary osteoarthritis, right hip [...] List Items Addressed This Visit Diabetic neuropathy ([facility]) Continue with cintia hudson mgmt is prescribing OARRS reviewed Fu in 3 months Goal: tighter glucose control Hypertension ([facility]) Please check blood pressure daily and [...] complication, with long-term current use of insulin ([facility]) Check blood sugars daily, notify if [...] / creatinine, urine ratio Anxiety and depression ([facility]) - Primary Current meds: elavil, duloxtine, [...] PPI Malignant neoplasm of cervix uteri, unspecified ([facility]) Had in the past, had hysterectomy [...] Asthma (CMS/HCC) Current meds: albuterol, duoneb, Has matchbook maker 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 Associated Problem(s): Obstructive sleep [...] glucose control documented in this encounter [facility] 08-08-2024 Note [place] Cardiology - [facility] Subjective [...] Diagnosis Date COPD (chronic obstructive pulmonary disease) ([facility] Diabetes mellitus ([facility]) Hyperlipidemia Hypertension Sleep apnea Past Surgical [...] by mouth at bedtime., Disp: , Rfl: Radhaztri Aerosphere 160-9-4.8 mcg/actuation HFA aerosol inhaler, INHALE [...] , Rfl: ergocalciferol (Vitamin D-2) 1.25 MG (76278 Units) capsule, Take 1.25 mg by mouth., [...] and at bedtime., Disp: , Rfl: HYDROcodone-acetaminophen ([place]) 5-325 mg tablet, TAKE 1 TABLET BY [...] TWICE DAILY, Disp: (more content not included)... [facility] 07-14-2024 History of Present illness [...] original note were not included. [place] from [facility] Urologist appt: CT scan , [...] or chew. ergocalciferol (Vitamin D2) 1.25 MG (15433 UT) capsule TAKE 1 CAPSULE BY MOUTH ONE TIME PER WEEK furosemide (LASIX) 40 mg, Oral, Daily furosemide (LASIX) 20 mg, Oral, Daily PRN, Take in the afternoon as needed hydrALAZINE (APRESOLINE) 25 mg, Oral, 2 times daily HYDROcodone-acetaminophen ([place]) 5-325 MG tablet 1 tablet, 3 times [...] rate Elevated WBC count Essential (primary) hypertension ([facility]) GERD (gastroesophageal reflux disease) 09/17/2023 Hyperlipidemia ([facility]) 09/17/2023 Hypertension ([facility]) 07/10/2023 Insomnia 09/17/2023 nursing home (current) use of insulin ([facility]) Lower extremity edema 09/17/2023 Mixed hyperlipidemia ([facility]) Morbid (severe) obesity due to excess calories ([facility]) Obstructive sleep apnea 07/10/2023 PAD (peripheral artery disease) ([facility]) 09/17/2023 Pancreatitis 09/17/2023 Pneumonia 09/17/2023 Proteinuria, unspecified Pulmonary hypertension ([facility]) [...] List Items Addressed This Visit Diabetic neuropathy ([facility]) Continue with lyrica OARRS reviewed Fu in 3 months COPD (chronic obstructive pulmonary disease) ([facility]) Stable at this time, no changes in meds Encouraged smoking cessation Cont with dr Yañez Hypertension ([facility]) - Primary Please check blood pressure daily and record DASH diet Limit caffeine Take medication as directed Contact office if chest pain, pressure, dizziness, shortness of breath, swelling legs Recommend slow position changes Current meds: hydralazine, lisinopril, Type 2 diabetes mellitus with complication, with long-term current use of insulin ([facility]) Check blood sugars daily, notify if [...] take over prescribing PAD (peripheral artery disease) ([facility]) Asa, statin Quit smoking BP and [...] 1 cm to 4 cm in diameter ([facility]) Continue with Urology Kidney stone Continue with Urology Non-seasonal allergic rhinitis Relevant Medications cetirizine (ZyrTEC) 10 MG tablet Critical limb ischemia of right lower extremity ([facility]) Saw vascular, does have narrowing in arteries in legs, and thus the wounds not healing At this point they strongly urge to quit smoking or risk limb amputation Cont asa and statin Also good blood pressure and sugar control Venous ulcer of right leg ([facility]) Encounter for smoking cessation counseling Relevant Medications nicotine (Nicoderm, Step 1) 21 MG/24HR patch Other Visit Diagnoses Type 2 diabetes mellitus with unspecified complications ([facility]) Quitting smokinppd, chantix not helped, ] [...] complication, with long-term current use of insulin ([facility]) Check blood sugars daily, notify if [...] PPI Associated Problem(s): PAD (peripheral artery disease) ([facility]) Asa, statin Quit smoking BP and DM control Associated Problem(s): Hypertension ([facility]) Please check blood pressure daily and record DASH diet Limit caffeine Take medication as directed Contact office if chest pain, pressure, dizziness, shortness of breath, swelling legs Recommend slow position changes Current meds: hydralazine, lisinopril, Associated Problem(s): COPD (chronic obstructive pulmonary disease) ([facility]) Stable at this time, no changes in meds Encouraged smoking cessation Cont with dr Yañez Associated Problem(s): Diabetic neuropathy ([facility]) Continue with tristan EAST reviewed Fu in 3 months documented in this encounter [facility] 06-11-2024 Hospital Discharge instructions Patient Education [...] require a prescription. You can also purchase vlxn-lie-kmzyvwf medicines. Medicines may have nicotine in them [...] and encouragement. Call telephone quitlines, such as 8-037-EWVR-NOW, reach out to support groups, or work [...] provider. Document Revised: 06/16/2022 Document Reviewed: 06/16/2022 [employer] Patient Education 2023 Barcoding. 06/11/2024 10:39:22 Dietary Guidelines to Help Prevent [...] include: ?8 oz (237 mL) of milk, ljucfma-qanqwtpefphg-wkeqo milk, and calcium-fortifiedfruit juice. Calcium-fortified means that [...] ?Spinach (cooked), rhubarb, beets, sweet potatoes, and Chinese chard. ?Peanuts. ?Potato chips, bolivian fries, and baked potatoes with skin on. ?Nuts and nut products. ?Chocolate. If you regularly take a diuretic medicine, make sure to eat at least 1 or 2 servings of fruits or vegetables that are high in potassium each day. These include: ?Avocado. ?Banana. ?[place], prune, carrot, or tomato juice. ?Baked potato. [...] magnesium, fish oil, or vitamin B6. Take svyl-hzx-mcnyttu and prescription medicines only as told by [...] Casseroles. Pizza. Lasagna. Frozen meals. Potato chips. Uzbek fries. The items listed above may not [...] provider. Document Revised: 10/05/2022 Document Reviewed: 10/05/2022 [employer] Patient Education 2023 Barcoding. Follow Up Care 05/06/2024 08:24:56 With:REGLA PHIPPS, Elbert Joya, URL Address: [facility] [address], [place] [address]- When: Unknown [facility] 05-27-2024 History of Present illness Narrative [...] mg weekly, farxia 5 mg by PCP. 01/2023 follow up visit on 01/15/2023 , [...] or chew. ergocalciferol (Vitamin D2) 1.25 MG (79704 UT) capsule TAKE 1 CAPSULE BY MOUTH ONE TIME PER WEEK furosemide (LASIX) 20 mg, Oral, Daily PRN, Take in the afternoon as needed furosemide (LASIX) 40 mg, Oral, Daily Glucose Blood (ACCU-CHEK JAQUI PLUS ) 4 times daily hydrALAZINE (APRESOLINE) 25 mg, Oral, 2 times daily HYDROcodone-acetaminophen ([place]) 5-325 MG tablet 1 tablet, 3 times [...] CT Albuminuria 09/17/2023 Angiomyolipoma Anxiety and depression ([facility]) 07/10/2023 Asthma ([facility]) 07/10/2023 Body mass index (BMI) 50.0-59.9, adult ([facility]) Cellulitis of left lower extremity Cervical cancer ([facility]) 09/17/2023 Chronic pain of both knees 09/17/2023 COPD (chronic obstructive pulmonary disease) ([facility]) 07/10/2023 COPD exacerbation ([facility]) 09/17/2023 Decreased functional mobility 09/17/2023 Diabetic neuropathy ([facility]) 07/10/2023 Dietary counseling and surveillance Edema 07/10/2023 Elevated sed rate Elevated WBC count GERD (gastroesophageal reflux disease) 09/17/2023 Hyperlipidemia ([facility]) 09/17/2023 Hypertension ([facility]) 07/10/2023 Insomnia 09/17/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 ([facility]) Lower extremity edema 09/17/2023 Morbid (severe) obesity due to excess calories ([facility]) Obstructive sleep apnea 07/10/2023 PAD (peripheral artery disease) ([facility]) 09/17/2023 Pancreatitis 09/17/2023 Pneumonia 09/17/2023 Proteinuria, unspecified Pulmonary hypertension ([facility]) [...] dietary consultation Vitamin D deficiency Primary hypertension ([facility]) To follow with her PCP Insulin long-term use ([facility]) Hyperlipemia, mixed ([facility]) Continue with Zocor 10 mg once daily Microalbuminuria Class 3 severe obesity due to excess calories with serious comorbidity and body mass index (BMI) of 50.0 to 59.9 in adult ([facility]) Diet and exercise reviewed with the patient Follow up in about 3 months (around 08/27/2024). documented in this encounter [facility] 04-14-2024 History of Present illness Narrative Associated Problem(s): Hyperpigmentation of skin Will try cerevue ointment to see if helps Associated Problem(s): Tobacco user Urged to quit Associated Problem(s): Type 2 diabetes mellitus with complication, with long-term current use of insulin ([facility]/H[facility]) Check blood sugars daily, follow w Endo. [...] being taken. She does not see a manufacturing engineer chief.Eye exam is not current. Hypertension This is [...] or chew. ergocalciferol (Vitamin D2) 1.25 MG (44035 UT) capsule TAKE 1 CAPSULE BY MOUTH ONE TIME PER WEEK furosemide (LASIX) 20 mg, Oral, Daily PRN, Take in the afternoon as needed furosemide (LASIX) 40 mg, Oral, Daily Glucose Blood (ACCU-CHEK JAQUI PLUS ) 4 times daily HumaLOG KWIKPEN 100 UNIT/ML injection Subcutaneous hydrALAZINE (APRESOLINE) 25 mg, Oral, 2 times daily HYDROcodone-acetaminophen ([place]) 5-325 MG tablet 1 tablet, 3 times [...] CT Albuminuria 09/17/2023 Angiomyolipoma Anxiety and depression ([facility]) 07/10/2023 Asthma ([facility]) 07/10/2023 Cellulitis of left lower extremity Cervical cancer ([facility]) 09/17/2023 Chronic pain of both knees 09/17/2023 COPD (chronic obstructive pulmonary disease) ([facility]) 07/10/2023 COPD exacerbation ([facility]) 09/17/2023 Decreased functional mobility 09/17/2023 Diabetic [...] List Items Addressed This Visit Diabetic neuropathy ([facility]) Continue with tristan EAST reviewed Fu in 3 months Relevant Medications pregabalin (Lyrica) 300 MG capsule COPD (chronic obstructive pulmonary disease) ([facility]) - Primary Stable at this time, no changes in meds Encouraged smoking cessation Cont with dr Yañez Hypertension ([facility]) Stable on current meds Refill meds Relevant Medications hydrALAZINE (Apresoline) 25 MG tablet lisinopril 20 MG tablet Type 2 diabetes mellitus with complication, with long-term current use of insulin ([facility]) Check blood sugars daily, follow w [...] MCG tablet documented in this encounter [facility] 11-15-2022 Hospital Discharge instructions Patient Education [...] include: ?8 oz (237 mL) of milk, eewuobb-pwoivfoyohri-tkvhs milk, and calcium-fortifiedfruit juice. Calcium-fortified means that [...] ?Spinach (cooked), rhubarb, beets, sweet potatoes, and Chinese chard. ?Peanuts. ?Potato chips, bolivian fries, and baked potatoes with skin on. ?Nuts and nut products. ?Chocolate. If you regularly take a diuretic medicine, make sure to eat at least 1 or 2 servings of fruits or vegetables that are high in potassium each day. These include: ?Avocado. ?Banana. ?[place], prune, carrot, or tomato juice. ?Baked potato. [...] magnesium, fish oil, or vitamin B6. Take anbd-szn-whxyvmr and prescription medicines only as told by [...] Casseroles. Pizza. Lasagna. Frozen meals. Potato chips. Uzbek fries. The items listed above may not [...] provider. Document Revised: 03/06/2022 Document Reviewed: 03/06/2022 [employer] Patient Education 2022 Barcoding. Follow Up Care 02/06/2022 11:44:09 With:SARAH VEGA PA-C, URL Address: [address] [place] [address] When: Unknown [facility] 08-24-2022 Note CONSULTATION CONSULTATION DATE: 08/24/2022 HISTORY [...] We maintain her on pain medication with [place] 5/325 t.i.d., diclofenac 75 mg b.i.d. Her [...] her at this point. A refill for [place] 5/325 t.i.d. and diclofenac 75 mg b.i.d. will be sent to the pharmacy. Vitamin compliance and nutrition were discussed and enforced. I did highly encourage her to use exercise bands to increase the strength in her lower extremities. We will see her in three months' time, unless otherwise indicated, and patient agrees. [facility] 05-11-2022 Note CONSULTATION CONSULTATION DATE: [...] 150. Medications include Lyrica 300 mg b.i.d., [place] 5/325 t.i.d., diclofenac 75 mg b.i.d. and [...] her medications today. We will maintain Lyrica, [place] and diclofenac at the set dose and frequency. We will follow-up in the clinic in three months' time. The patient is in agreement to this. Vitamin importance and nutrition were discussed. [facility] 04-20-2022 Note CONSULTATION CONSULTATION DATE: [...] medications include Tylenol, Lyrica 300 mg b.i.d., [place] 5/325 t.i.d., amitriptyline, diclofenac and duloxetine. Patient's [...] be followed up in the clinic. [facility] 03-08-2022 Evaluation note Encounter Date [...] to the DANIEL. Thrombocytopenia is unclear etiology. [employer] [facility] 08-15-2022 Evaluation note* Encounter Date Diagnosis [...] follow with Dr. Souza and Dr. Arauz. [employer] 08-01-2022 Hospital Discharge instructions Patient Education [...] fried and sweet foods. General instructions Take [id number] and prescription medicines only as told by [...] 04/21/2010 Document Revised: 10/16/2019 Document Reviewed: 07/11/2018 [employer] Patient Education 2020 Barcoding. Follow Up Care 01/05/2022 12:02:03 With:REGLA PHIPPS, Elbert Joya, MANISHL Address: [facility] [address] , [place] [address] [phone] When:Within 6 Month(s) Comments:w/ repeat CT A/P [facility] 07-14-2022 NoteCONSULTATION PROCEDURE DATE: [...] pattern and the patient tolerated it well. [facility] Signed and Approved by: GIL VALENZUELA . 01/27/2022 14:15:00[facility]07-14-2022 NoteCONSULTATION CONSULTATION DATE: 01/19/2022 This [...] today. Medications include Lyrica 300 mg b.i.d., [place] 5/325 t.i.d., diclofenac 75 mg b.i.d. and [...] in three months' time unless otherwise indicated. [facility] Signed and Approved by: GIL VALENZUELA . 01/27/2022 14:15:00[facility] HospitalEvaluation + Plan note Future Appointments Appointment Date:08/14/2022 09:15:00 AM Scheduled Provider:Elbert ARAUZ MD Location:[facility] Appointment Type:URO Office Visit [facility] evaluation + Plan note Future Appointments Appointment Date:04/22/2024 10:00:00 AM Scheduled Provider:SARAH VEGA PA-C Location:[facility] Appointment Type:URO Office Visit [facility] evaluation note* Diagnosis Type 2 diabetes mellitus with unspecified complications ([facility]/HCC) Edema, unspecified Edema documented in this encounter [...] depression (CMS/HCC) Edema, unspecified Edema Hyperlipidemia, unspecified (CMS/[facility]) Diabetic polyneuropathy associated with type 2 diabetes mellitus (CMS/[facility]) Gout, unspecified cause, unspecified chronicity, unspecified [...] (CMS/HCC) Other specified disorders of adrenal gland ([facility]) Major depressive disorder, single episode, mild (HCC) ([facility]) Major depressive disorder, single episode, mild Non-pressure chronic ulcer of other part of left lower leg with fat layer exposed ([facility]) Chronic respiratory failure, unspecified whether with hypoxia or hypercapnia ([facility]) Disorder of adrenal gland, unspecified ([facility]) Non-pressure chronic ulcer of other part of right lower leg limited to breakdown of skin ([facility]) Non-recurrent acute suppurative otitis media of left ear without spontaneous rupture of tympanic membrane Primary hypertension ([facility])- Primary Unspecified essential hypertension Insomnia Insomnia, unspecified Type 2 diabetes mellitus with complication, with long-term current use of insulin ([facility]) Non-seasonal allergic rhinitis, unspecified trigger Type 2 diabetes mellitus with unspecified complications ([facility]) Anxiety and depression ([facility]) Gastro-esophageal reflux disease without esophagitis Edema, unspecified Edema Diabetic polyneuropathy associated with type 2 diabetes mellitus ([facility]) Chronic obstructive pulmonary disease, unspecified ([facility]) Pulmonary emphysema, unspecified emphysema type ([facility]) Bilateral lower extremity edema Tobacco user Tobacco use disorder Hyperpigmentation of skin Other dyschromia Type 2 diabetes mellitus with hyperglycemia, with long-term current use of insulin ([facility])- Primary Encounter for dietary consultation Vitamin D deficiency Primary hypertension ([facility] Unspecified essential hypertension Insulin long-term use ([facility]) Encounter for long-term (current) use of insulin Hyperlipemia, mixed ([facility]) Mixed hyperlipidemia Microalbuminuria Proteinuria Class 3 severe obesity due to excess calories with serious comorbidity and body mass index (BMI) of 50.0 to 59.9 in adult ([facility]) documented [facility] encounter [facility]* Diagnosis Hyperlipidemia, unspecified ([facility]) Bilateral lower extremity edema documented in this encounter [facility]* Diagnosis Vitamin D deficiency, unspecified documented in this encounter [facility]* Diagnosis Obstructive sleep apnea- Primary Obstructive sleep apnea (adult) (pediatric) Pulmonary emphysema, unspecified emphysema type ([facility]) Primary hypertension ([facility]) Unspecified essential hypertension Type 2 diabetes mellitus with complication, with long-term current use of insulin ([facility]) Anxiety and depression ([facility]/HCC) Bilateral lower extremity edema Pulmonary emphysema, unspecified [...] with type 2 diabetes mellitus (CMS/[facility]) Gout, unspecified cause, unspecified chronicity, unspecified [...] to 59.9 in adult, unspecified obesity type ([facility]) Encounter for subsequent annual wellness visit (AWV) in Medicare patient- Primary Type 2 diabetes mellitus with unspecified complications (CMS/HCC) Pulmonary emphysema, unspecified emphysema type (CMS/HCC) Moderate persistent asthma without complication (CMS/HCC) Primary hypertension (CMS/HCC) Unspecified essential hypertension Type 2 diabetes mellitus with complication, with long-term current use of insulin (CMS/[facility]) Class 3 severe obesity with serious [...] diabetes mellitus with unspecified complications (CMS/[facility]) Anxiety and depression (CMS/[facility]) Gastro-esophageal reflux disease without esophagitis Edema, unspecified Edema Diabetic polyneuropathy associated with type 2 diabetes mellitus (CMS/[facility]) Chronic obstructive pulmonary disease, unspecified (CMS/[facility]) Pulmonary emphysema, unspecified emphysema type (CMS/[facility]) Bilateral lower extremity edema Tobacco user Tobacco use disorder Hyperpigmentation of skin Other dyschromia Bilateral lower extremity edema documented in this encounter [facility]* Diagnosis Obstructive sleep apnea- Primary Obstructive sleep apnea (adult) (pediatric) Pulmonary emphysema, unspecified emphysema type (CMS/HCC) Primary hypertension ([facility]) Unspecified essential hypertension Type 2 diabetes mellitus with complication, with long-term current use of insulin (CMS/[facility]) Anxiety and depression (CMS/[facility]) Bilateral lower extremity edema Pulmonary emphysema, unspecified emphysema type ([facility]/HCC)- Primary Primary hypertension ([facility]) Unspecified essential hypertension Class 3 severe [...] long-term current use of insulin (CMS/[facility]) Mixed hyperlipidemia (CMS/HCC) Mixed hyperlipidemia Tobacco [...] in adult, unspecified obesity type (CMS/[facility]) Encounter for subsequent annual wellness visit (AWV) in Medicare patient- Primary Type 2 diabetes mellitus with unspecified complications (CMS/HCC) Pulmonary emphysema, unspecified emphysema type (CMS/HCC) Moderate persistent asthma without complication (CMS/HCC) Primary hypertension (CMS/[facility]) Unspecified essential hypertension Type 2 diabetes mellitus with complication, with long-term current use of insulin (CMS/[facility]) Class 3 severe obesity with serious comorbidity and body mass index (BMI) of 50.0 to 59.9 in adult, unspecified obesity type (CMS/HCC) Tobacco user Tobacco use disorder Other headache syndrome Malignant neoplasm of cervix uteri, unspecified (CMS/HCC) Other specified disorders of adrenal gland (CMS/HCC) Major depressive disorder, single episode, mild (HCC) (CMS/[facility]) Major depressive disorder, single episode, mild [...] polyneuropathy associated with type 2 diabetes mellitus ([facility]) Chronic obstructive pulmonary disease, unspecified ([facility]) Pulmonary emphysema, unspecified emphysema type ([facility]/HCC) Bilateral lower extremity edema Tobacco user Tobacco use disorder Hyperpigmentation of skin Other dyschromia Primary hypertension ([facility])- Primary Unspecified essential hypertension Diabetic polyneuropathy associated with type 2 diabetes mellitus ([facility]) Pulmonary emphysema, unspecified emphysema type ([facility]) Critical limb ischemia of right lower extremity ([facility]) PAD (peripheral artery disease) ([facility]) Unspecified peripheral vascular disease Gastroesophageal reflux disease, unspecified whether esophagitis present Bilateral lower extremity edema Venous ulcer of right leg ([facility]) Type 2 diabetes mellitus with complication, with long-term current use of insulin ([facility]) Tobacco user Tobacco use disorder Encounter for smoking cessation counseling Kidney stone Calculus of kidney Adrenal mass 1 cm to 4 cm in diameter ([facility]) Radiculopathy, lumbar region Thoracic or lumbosacral neuritis or radiculitis, unspecified Non-seasonal allergic rhinitis, unspecified trigger Type 2 diabetes mellitus with unspecified complications ([facility]) documented in this encounter [facility]* Diagnosis Obstructive sleep apnea- Primary Obstructive sleep apnea (adult) (pediatric) Pulmonary emphysema, unspecified emphysema type ([facility]) Primary hypertension ([facility]) Unspecified essential hypertension Type 2 diabetes mellitus with complication, with long-term current use of insulin ([facility]) Anxiety and depression ([facility]) Bilateral lower extremity edema Pulmonary emphysema, unspecified emphysema type ([facility])- Primary Primary hypertension ([facility]) Unspecified essential hypertension Class 3 severe obesity with serious comorbidity and body mass index (BMI) of 50.0 to 59.9 in adult, unspecified obesity type ([facility]) Obstructive sleep apnea Obstructive sleep apnea (adult) (pediatric) Pulmonary hypertension ([facility]) Other chronic pulmonary heart diseases Tobacco user Tobacco use disorder Cardiomegaly Primary hypertension ([facility])- Primary Unspecified essential hypertension Gastroesophageal reflux disease, unspecified whether esophagitis present Type 2 diabetes mellitus with complication, with long-term current use of insulin ([facility]) Mixed hyperlipidemia ([facility]) Mixed hyperlipidemia Tobacco user Tobacco use [...] in adult, unspecified obesity type (CMS/[facility]) Encounter for subsequent annual wellness visit (AWV) in Medicare patient- Primary Type 2 diabetes mellitus with unspecified complications (CMS/HCC) Pulmonary emphysema, unspecified emphysema type (CMS/HCC) Moderate persistent asthma without complication (CMS/HCC) Primary hypertension (CMS/[facility]) Unspecified essential hypertension Type 2 diabetes mellitus with complication, with long-term current use of insulin (CMS/[facility]) Class 3 severe obesity with serious comorbidity and body mass index (BMI) of 50.0 to 59.9 in adult, unspecified obesity type (CMS/HCC) Tobacco user Tobacco use disorder Other headache syndrome Malignant neoplasm of cervix uteri, unspecified (CMS/HCC) Other specified disorders of adrenal gland (CMS/HCC) Major depressive disorder, single episode, mild (HCC) (CMS/[facility]) Major depressive disorder, single episode, mild [...] Type 2 diabetes mellitus with unspecified complications ([facility]) Anxiety and depression ([facility]) Gastro-esophageal reflux disease without esophagitis Edema, unspecified Edema Diabetic polyneuropathy associated with type 2 diabetes mellitus ([facility]) Chronic obstructive pulmonary disease, unspecified ([facility]) Pulmonary emphysema, unspecified emphysema type ([facility]) Bilateral lower extremity edema Tobacco user Tobacco use disorder Hyperpigmentation of skin Other dyschromia Primary hypertension ([facility])- Primary Unspecified essential hypertension Diabetic polyneuropathy associated with type 2 diabetes mellitus ([facility]) Pulmonary emphysema, unspecified emphysema type ([facility]) Critical limb ischemia of right lower extremity ([facility]) PAD (peripheral artery disease) ([facility]) Unspecified peripheral vascular disease Gastroesophageal reflux disease, unspecified whether esophagitis present Bilateral lower extremity edema Venous ulcer of right leg ([facility]) Type 2 diabetes mellitus with complication, with long-term current use of insulin ([facility]) Tobacco user Tobacco use disorder Encounter for smoking cessation counseling Kidney stone Calculus of kidney Adrenal mass 1 cm to 4 cm in diameter ([facility]) Radiculopathy, lumbar region Thoracic or lumbosacral neuritis or radiculitis, unspecified Non-seasonal allergic rhinitis, unspecified trigger Type 2 diabetes mellitus with unspecified complications ([facility]) Anxiety and depression ([facility])- Primary Morbid (severe) obesity due to excess calories ([facility]) Body mass index (BMI) 50.0-59.9, adult ([facility]) Malignant neoplasm of cervix uteri, unspecified ([facility]) Diabetic polyneuropathy associated with type 2 diabetes mellitus ([facility] Chronic diastolic heart failure ([facility]) Chronic diastolic heart failure Primary hypertension ([facility] Unspecified essential hypertension Idiopathic chronic venous hypertension of both lower extremities with ulcer ([facility]) Gastroesophageal reflux disease, unspecified whether esophagitis present Bilateral lower extremity edema Type 2 diabetes mellitus with complication, with long-term current use of insulin ([facility]) Tobacco user Tobacco use disorder Mixed hyperlipidemia ([facility]) Mixed hyperlipidemia Gout, unspecified cause, unspecified chronicity, unspecified site Vitamin deficiency Unspecified vitamin deficiency Gastro-esophageal reflux disease without esophagitis Edema, unspecified Edema Hyperlipidemia, unspecified ([facility]) Encounter for smoking cessation counseling Venous ulcer of right leg ([facility]) Antibiotic-induced yeast infection documented in this encounter [facility]* Diagnosis Obstructive sleep apnea- Primary Obstructive sleep apnea (adult) (pediatric) Pulmonary emphysema, unspecified emphysema type ([facility]) Primary hypertension ([facility]) Unspecified essential hypertension Type 2 diabetes mellitus with complication, with long-term current use of insulin ([facility]) Anxiety and depression ([facility]) Bilateral lower extremity edema Pulmonary emphysema, unspecified emphysema type ([facility])- Primary Primary hypertension ([facility]) Unspecified essential hypertension Class 3 severe obesity with serious comorbidity and body mass index (BMI) of 50.0 to 59.9 in adult, unspecified obesity type Obstructive sleep apnea Obstructive sleep apnea (adult) (pediatric) Pulmonary hypertension ([facility]) Other chronic pulmonary heart diseases Tobacco user Tobacco use disorder Cardiomegaly Primary hypertension ([facility])- Primary Unspecified essential hypertension Gastroesophageal reflux disease, unspecified whether esophagitis present Type 2 diabetes mellitus with complication, with long-term current use of insulin ([facility]) Mixed hyperlipidemia ([facility]) Mixed hyperlipidemia Tobacco user Tobacco use disorder Encounter for screening mammogram for malignant neoplasm of breast Chronic obstructive pulmonary disease, unspecified Other specified chronic obstructive pulmonary disease Anxiety and depression ([facility]) Edema, unspecified Edema Hyperlipidemia, unspecified ([facility]) Diabetic polyneuropathy associated with type 2 diabetes mellitus ([facility]) Gout, unspecified cause, unspecified chronicity, unspecified site Non-seasonal allergic rhinitis, unspecified trigger Bilateral lower extremity edema COPD exacerbation ([facility]) Obstructive chronic bronchitis with exacerbation Pulmonary emphysema, unspecified emphysema type ([facility]) Venous insufficiency Unspecified venous (peripheral) insufficiency Candidiasis of breast COPD exacerbation ([facility])- Primary Obstructive chronic bronchitis with exacerbation Pulmonary hypertension ([facility]) Other chronic pulmonary heart diseases Class 3 severe obesity with serious comorbidity and body mass index (BMI) of 50.0 to 59.9 in adult, unspecified obesity type Encounter for subsequent annual wellness visit (AWV) in Medicare patient- Primary Type 2 diabetes mellitus with unspecified complications Pulmonary emphysema, unspecified emphysema type ([facility]) Moderate persistent asthma without complication ([facility]) Primary hypertension ([facility]) Unspecified essential hypertension Type 2 diabetes mellitus with complication, with long-term current use of insulin ([facility]) Class 3 severe obesity with serious comorbidity and body mass index (BMI) of 50.0 to 59.9 in adult, unspecified obesity type Tobacco user Tobacco use disorder Other headache syndrome Malignant neoplasm of cervix uteri, unspecified Other specified disorders of adrenal gland Major depressive disorder, single episode, mild (HCC) ([facility]) Major depressive disorder, single episode, mild Non-pressure chronic ulcer of other part of left lower leg with fat layer exposed Chronic respiratory failure, unspecified whether with hypoxia or hypercapnia Disorder of adrenal gland, unspecified Non-pressure chronic ulcer of other part of right lower leg limited to breakdown of skin ([facility]) Non-recurrent acute suppurative otitis media of left ear without spontaneous rupture of tympanic membrane Primary hypertension ([facility])- Primary Unspecified essential hypertension Insomnia Insomnia, unspecified Type 2 diabetes mellitus with complication, with long-term current use of insulin ([facility]) Non-seasonal allergic rhinitis, unspecified trigger Type 2 diabetes mellitus with unspecified complications Anxiety and depression ([facility]) Gastro-esophageal reflux disease without esophagitis Edema, unspecified Edema Diabetic polyneuropathy associated with type 2 diabetes mellitus ([facility]) Chronic obstructive pulmonary disease, unspecified Pulmonary emphysema, unspecified emphysema type (CMS/HCC) Bilateral lower extremity edema Tobacco user Tobacco use disorder Hyperpigmentation of skin Other dyschromia Primary hypertension ([facility])- Primary Unspecified essential hypertension Diabetic polyneuropathy associated with type 2 diabetes mellitus ([facility]) Pulmonary emphysema, unspecified emphysema type ([facility]) Critical limb ischemia of right lower extremity ([facility]) PAD (peripheral artery disease) ([facility]) Unspecified peripheral vascular disease Gastroesophageal reflux disease, unspecified whether esophagitis present Bilateral lower extremity edema Venous ulcer of right leg ([facility]) Type 2 diabetes mellitus with complication, with long-term current use of insulin ([facility]) Tobacco user Tobacco use disorder Encounter for smoking cessation counseling Kidney stone Calculus of kidney Adrenal mass 1 cm to 4 cm in diameter ([facility]) Radiculopathy, lumbar region Thoracic or lumbosacral neuritis or radiculitis, unspecified Non-seasonal allergic rhinitis, unspecified trigger Type 2 diabetes mellitus with unspecified complications Anxiety and depression ([facility])- Primary Morbid (severe) obesity due to excess calories ([facility]) Body mass index (BMI) 50.0-59.9, adult ([facility]) Malignant neoplasm of cervix uteri, unspecified Diabetic polyneuropathy associated with type 2 diabetes mellitus ([facility] Chronic diastolic heart failure ([facility]) Chronic diastolic heart failure Primary hypertension ([facility]) Unspecified essential hypertension 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 Gastroesophageal reflux disease, unspecified whether esophagitis present Bilateral lower extremity edema Type 2 diabetes mellitus with complication, with long-term current use of insulin ([facility]) Tobacco user Tobacco use disorder Mixed hyperlipidemia ([facility]) Mixed hyperlipidemia Gout, unspecified cause, unspecified chronicity, unspecified site Vitamin deficiency Unspecified vitamin deficiency Gastro-esophageal reflux disease without esophagitis Edema, unspecified Edema Hyperlipidemia, unspecified ([facility] Encounter for smoking cessation counseling Venous ulcer of right leg ([facility]) Antibiotic-induced yeast infection Type 2 diabetes mellitus with hyperglycemia, with long-term current use of insulin ([facility])- Primary Encounter for dietary consultation Vitamin D deficiency Primary hypertension ([facility]) Unspecified essential hypertension Insulin long-term use ([facility]) Encounter for long-term (current) use of insulin Hyperlipemia, mixed ([facility]) Mixed hyperlipidemia Microalbuminuria Proteinuria Class 3 severe obesity due to excess calories with serious comorbidity and body mass index (BMI) of 50.0 to 59.9 in adult documented in this encounter [facility]* Diagnosis Obstructive sleep apnea- Primary Obstructive sleep apnea (adult) (pediatric) Pulmonary emphysema, unspecified emphysema type ([facility]) Primary hypertension ([facility]) Unspecified essential hypertension Type 2 diabetes mellitus with complication, with long-term current use of insulin ([facility]) Anxiety and depression ([facility]) Bilateral lower extremity edema Pulmonary emphysema, unspecified emphysema type ([facility])- Primary Primary hypertension ([facility]) Unspecified essential hypertension Class 3 severe obesity with serious comorbidity and body mass index (BMI) of 50.0 to 59.9 in adult, unspecified obesity type Obstructive sleep apnea Obstructive sleep apnea (adult) (pediatric) Pulmonary hypertension ([facility]) Other chronic pulmonary heart diseases Tobacco user Tobacco use disorder Cardiomegaly Primary hypertension ([facility])- Primary Unspecified essential hypertension Gastroesophageal reflux disease, unspecified whether esophagitis present Type 2 diabetes mellitus with complication, with long-term current use of insulin ([facility]) Mixed hyperlipidemia ([facility]) Mixed hyperlipidemia Tobacco user Tobacco use disorder Encounter for screening mammogram for malignant neoplasm of breast Chronic obstructive pulmonary disease, unspecified Other specified chronic obstructive pulmonary disease Anxiety and depression (CMS/[facility]) Edema, unspecified Edema Hyperlipidemia, unspecified (CMS/[facility]) Diabetic polyneuropathy associated with type 2 diabetes mellitus (CMS/[facility]) Gout, unspecified cause, unspecified chronicity, unspecified site Non-seasonal allergic rhinitis, unspecified trigger Bilateral lower extremity edema COPD exacerbation (CMS/[facility]) Obstructive chronic bronchitis with exacerbation Pulmonary emphysema, unspecified emphysema type (CMS/HCC) Venous insufficiency Unspecified venous (peripheral) insufficiency Candidiasis of breast COPD exacerbation (CMS/[facility])- Primary Obstructive chronic bronchitis with exacerbation Pulmonary hypertension (CMS/[facility]) Other chronic pulmonary heart diseases Class 3 severe obesity with serious comorbidity and body mass index (BMI) of 50.0 to 59.9 in adult, unspecified obesity type Encounter for subsequent annual wellness visit (AWV) in Medicare patient- Primary Type 2 diabetes mellitus with unspecified complications Pulmonary emphysema, unspecified emphysema type (CMS/[facility]) Moderate persistent asthma without complication ([facility]) Primary hypertension (CMS/[facility]) Unspecified essential hypertension Type 2 diabetes mellitus with complication, with long-term current use of insulin ([facility]) Class 3 severe obesity with serious comorbidity and body mass index (BMI) of 50.0 to 59.9 in adult, unspecified obesity type Tobacco user Tobacco use disorder Other headache syndrome Malignant neoplasm of cervix uteri, unspecified Other specified disorders of adrenal gland Major depressive disorder, single episode, mild (HCC) ([facility]) Major depressive disorder, single episode, mild Non-pressure chronic ulcer of other part of left lower leg with fat layer exposed Chronic respiratory failure, unspecified whether with hypoxia or hypercapnia Disorder of adrenal gland, unspecified Non-pressure chronic ulcer of other part of right lower leg limited to breakdown of skin (CMS/[facility]) Non-recurrent acute suppurative otitis media of left ear without spontaneous rupture of tympanic membrane Primary hypertension ([facility])- Primary Unspecified essential hypertension Insomnia Insomnia, unspecified Type 2 diabetes mellitus with complication, with long-term current use of insulin (CMS/[facility]) Non-seasonal allergic rhinitis, unspecified trigger Type 2 diabetes mellitus with unspecified complications Anxiety and depression (CMS/[facility]) Gastro-esophageal reflux disease without esophagitis Edema, unspecified Edema Diabetic polyneuropathy associated with type 2 diabetes mellitus (CMS/[facility]) Chronic obstructive pulmonary disease, unspecified Pulmonary emphysema, unspecified emphysema type (CMS/HCC) Bilateral lower extremity edema Tobacco user Tobacco use disorder Hyperpigmentation of skin Other dyschromia Primary hypertension ([facility])- Primary Unspecified essential hypertension Diabetic polyneuropathy associated with type 2 diabetes mellitus ([facility]) Pulmonary emphysema, unspecified emphysema type ([facility]) Critical limb ischemia of right lower extremity ([facility]) PAD (peripheral artery disease) ([facility]) Unspecified peripheral vascular disease Gastroesophageal reflux disease, unspecified whether esophagitis present Bilateral lower extremity edema Venous ulcer of right leg ([facility]) Type 2 diabetes mellitus with complication, with long-term current use of insulin ([facility]) Tobacco user Tobacco use disorder Encounter for smoking cessation counseling Kidney stone Calculus of kidney Adrenal mass 1 cm to 4 cm in diameter ([facility]) Radiculopathy, lumbar region Thoracic or lumbosacral neuritis or radiculitis, unspecified Non-seasonal allergic rhinitis, unspecified trigger Type 2 diabetes mellitus with unspecified complications Anxiety and depression ([facility])- Primary Morbid (severe) obesity due to excess calories ([facility]) Body mass index (BMI) 50.0-59.9, adult ([facility]) Malignant neoplasm of cervix uteri, unspecified Diabetic polyneuropathy associated with type 2 diabetes mellitus ([facility] Chronic diastolic heart failure ([facility] Chronic diastolic heart failure Primary hypertension ([facility]) Unspecified essential hypertension 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 Gastroesophageal reflux disease, unspecified whether esophagitis present Bilateral lower extremity edema Type 2 diabetes mellitus with complication, with long-term current use of insulin ([facility]) Tobacco user Tobacco use disorder Mixed hyperlipidemia ([facility]) Mixed hyperlipidemia Gout, unspecified cause, unspecified chronicity, unspecified site Vitamin deficiency Unspecified vitamin deficiency Gastro-esophageal reflux disease without esophagitis Edema, unspecified Edema Hyperlipidemia, unspecified ([facility]) Encounter for smoking cessation counseling Venous ulcer of right leg ([facility]) Antibiotic-induced yeast infection Chronic obstructive pulmonary disease, unspecified documented in this encounter [facility]Evaluation [facility]* Diagnosis Obstructive sleep apnea- Primary Obstructive sleep apnea (adult) (pediatric) Pulmonary emphysema, unspecified emphysema type ([facility]) Primary hypertension ([facility]) Unspecified essential hypertension Type 2 diabetes mellitus with complication, with long-term current use of insulin ([facility]/HCC) Anxiety and depression (CMS/[facility]) Bilateral lower extremity edema Pulmonary emphysema, unspecified emphysema type (CMS/HCC)- Primary Primary hypertension (CMS/[facility]) Unspecified essential hypertension Class 3 severe obesity with serious comorbidity and body mass index (BMI) of 50.0 to 59.9 in adult, unspecified obesity type Obstructive sleep apnea Obstructive sleep apnea (adult) (pediatric) Pulmonary hypertension (CMS/[facility]) Other chronic pulmonary heart diseases Tobacco user Tobacco use disorder Cardiomegaly Primary hypertension ([facility])- Primary Unspecified essential hypertension Gastroesophageal reflux disease, unspecified whether esophagitis present Type 2 diabetes mellitus with complication, with long-term current use of insulin (CMS/[facility]) Mixed hyperlipidemia ([facility]) Mixed hyperlipidemia Tobacco user Tobacco use disorder Encounter for screening mammogram for malignant neoplasm of breast Chronic obstructive pulmonary disease, unspecified Other specified chronic obstructive pulmonary disease Anxiety and depression ([facility]) Edema, unspecified Edema Hyperlipidemia, unspecified (CMS/[facility]) Diabetic polyneuropathy associated with type 2 diabetes mellitus ([facility]) Gout, unspecified cause, unspecified chronicity, unspecified site Non-seasonal allergic rhinitis, unspecified trigger Bilateral lower extremity edema COPD exacerbation ([facility]) Obstructive chronic bronchitis with exacerbation Pulmonary emphysema, unspecified emphysema type ([facility]) Venous insufficiency Unspecified venous (peripheral) insufficiency Candidiasis of breast COPD exacerbation ([facility])- Primary Obstructive chronic bronchitis with exacerbation Pulmonary hypertension ([facility]) Other chronic pulmonary heart diseases Class 3 severe obesity with serious comorbidity and body mass index (BMI) of 50.0 to 59.9 in adult, unspecified obesity type Encounter for subsequent annual wellness visit (AWV) in Medicare patient- Primary Type 2 diabetes mellitus with unspecified complications Pulmonary emphysema, unspecified emphysema type ([facility]) Moderate persistent asthma without complication ([facility]) Primary hypertension ([facility]) Unspecified essential hypertension Type 2 diabetes mellitus with complication, with long-term current use of insulin ([facility]) Class 3 severe obesity with serious comorbidity and body mass index (BMI) of 50.0 to 59.9 in adult, unspecified obesity type Tobacco user Tobacco use disorder Other headache syndrome Malignant neoplasm of cervix uteri, unspecified Other specified disorders of adrenal gland Major depressive disorder, single episode, mild (HCC) (CMS/[facility]) Major depressive disorder, single episode, mild Non-pressure chronic ulcer of other part of left lower leg with fat layer exposed Chronic respiratory failure, unspecified whether with hypoxia or hypercapnia Disorder of adrenal gland, unspecified Non-pressure chronic ulcer of other part of right lower leg limited to breakdown of skin ([facility]) Non-recurrent acute suppurative otitis media of left ear without spontaneous rupture of tympanic membrane Primary hypertension ([facility])- Primary Unspecified essential hypertension Insomnia Insomnia, unspecified Type 2 diabetes mellitus with complication, with long-term current use of insulin ([facility]) Non-seasonal allergic rhinitis, unspecified trigger Type 2 diabetes mellitus with unspecified complications Anxiety and depression ([facility]) Gastro-esophageal reflux disease without esophagitis Edema, unspecified Edema Diabetic polyneuropathy associated with type 2 diabetes mellitus ([facility]) Chronic obstructive pulmonary disease, unspecified Pulmonary emphysema, unspecified emphysema type ([facility]) Bilateral lower extremity edema Tobacco user Tobacco use disorder Hyperpigmentation of skin Other dyschromia Primary hypertension ([facility])- Primary Unspecified essential hypertension Diabetic polyneuropathy associated with type 2 diabetes mellitus ([facility]) Pulmonary emphysema, unspecified emphysema type ([facility]) Critical limb ischemia of right lower extremity ([facility]) PAD (peripheral artery disease) ([facility]) Unspecified peripheral vascular disease Gastroesophageal reflux disease, unspecified whether esophagitis present Bilateral lower extremity edema Venous ulcer of right leg ([facility]) Type 2 diabetes mellitus with complication, with long-term current use of insulin ([facility]) Tobacco user Tobacco use disorder Encounter for smoking cessation counseling Kidney stone Calculus of kidney Adrenal mass 1 cm to 4 cm in diameter ([facility]) Radiculopathy, lumbar region Thoracic or lumbosacral neuritis or radiculitis, unspecified Non-seasonal allergic rhinitis, unspecified trigger Type 2 diabetes mellitus with unspecified complications Anxiety and depression ([facility])- Primary Morbid (severe) obesity due to excess calories ([facility]) Body mass index (BMI) 50.0-59.9, adult ([facility]) Malignant neoplasm of cervix uteri, unspecified Diabetic polyneuropathy associated with type 2 diabetes mellitus ([facility] Chronic diastolic heart failure ([facility]) Chronic diastolic heart failure Primary hypertension ([facility]) Unspecified essential hypertension 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 Gastroesophageal reflux disease, unspecified whether esophagitis present Bilateral lower extremity edema Type 2 diabetes mellitus with complication, with long-term current use of insulin ([facility]) Tobacco user Tobacco use disorder Mixed hyperlipidemia ([facility]) Mixed hyperlipidemia Gout, unspecified cause, unspecified chronicity, unspecified site Vitamin deficiency Unspecified vitamin deficiency Gastro-esophageal reflux disease without esophagitis Edema, unspecified Edema Hyperlipidemia, unspecified ([facility]) Encounter for smoking cessation counseling Venous ulcer of right leg ([facility]) Antibiotic-induced yeast infection Primary hypertension ([facility])- Primary Unspecified essential hypertension Diabetic polyneuropathy associated with type 2 diabetes mellitus ([facility] Chronic diastolic heart failure ([facility]) Chronic diastolic heart failure Bilateral lower extremity edema Morbid (severe) obesity due to excess calories ([facility]) Type 2 diabetes mellitus with complication, with long-term current use of insulin ([facility]) Anxiety and depression ([facility]) Cigarette nicotine dependence without complication Encounter for screening mammogram for malignant neoplasm of breast Insomnia Insomnia, unspecified Non-seasonal allergic rhinitis, unspecified trigger Type 2 diabetes mellitus with unspecified complications Vitamin D deficiency, unspecified Gastro-esophageal reflux disease without esophagitis PAD (peripheral artery disease) ([facility]) Unspecified peripheral vascular disease Gastroesophageal reflux disease, unspecified whether esophagitis present Venous ulcer of right leg ([facility]) documented in this encounter [facility] HealthcareEvaluation note* Diagnosis Obstructive sleep apnea- Primary Obstructive sleep apnea (adult) (pediatric) Pulmonary emphysema, unspecified emphysema type (HCC) Primary hypertension Unspecified essential hypertension Type 2 diabetes mellitus with complication, with long-term current use of insulin ([facility]) Anxiety and depression Bilateral lower extremity edema Pulmonary emphysema, unspecified emphysema type (HCC)- Primary Primary hypertension Unspecified essential hypertension Class 3 severe obesity with serious comorbidity and body mass index (BMI) of 50.0 to 59.9 in adult, unspecified obesity type ([facility]) Obstructive sleep apnea Obstructive sleep apnea (adult) (pediatric) Pulmonary hypertension (HCC) Other chronic pulmonary heart diseases Tobacco user Tobacco use disorder Cardiomegaly Primary hypertension- Primary Unspecified essential hypertension Gastroesophageal reflux disease, unspecified whether esophagitis present Type 2 diabetes mellitus with complication, with long-term current use of insulin ([facility]) Mixed hyperlipidemia Mixed hyperlipidemia Tobacco user [...] to 59.9 in adult, unspecified obesity type ([facility]) Encounter for subsequent annual wellness visit (AWV) in Medicare patient- Primary Type 2 diabetes mellitus with unspecified complications (HCC) Pulmonary emphysema, unspecified emphysema type ([facility]) Moderate persistent asthma without complication (HCC) Primary hypertension Unspecified essential hypertension Type 2 diabetes mellitus with complication, with long-term current use of insulin ([facility]) Class 3 severe obesity with serious comorbidity and body mass index (BMI) of 50.0 to 59.9 in adult, unspecified obesity type ([facility] Tobacco user Tobacco use disorder Other headache [...] Critical limb ischemia of right lower extremity ([facility]) PAD (peripheral artery disease) Unspecified peripheral vascular disease Gastroesophageal reflux disease, unspecified whether esophagitis present Bilateral lower extremity edema Venous ulcer of right leg ([facility]) Type 2 diabetes mellitus with complication, with long-term current use of insulin ([facility]) Tobacco user Tobacco use disorder Encounter for smoking cessation counseling Kidney stone Calculus of kidney Adrenal mass 1 cm to 4 cm in diameter ([facility]) Radiculopathy, lumbar region Thoracic or lumbosacral neuritis or radiculitis, unspecified Non-seasonal allergic rhinitis, unspecified trigger Type 2 diabetes mellitus with unspecified complications ([facility]) Anxiety and depression- Primary Morbid (severe) obesity due to excess calories ([facility]) Body mass index (BMI) 50.0-59.9, adult ([facility]) Malignant neoplasm of cervix uteri, unspecified ([facility]) Diabetic polyneuropathy associated with type 2 diabetes mellitus ([facility]) Chronic diastolic heart failure (HCC) Chronic diastolic heart failure Primary hypertension Unspecified essential hypertension 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 ([facility]) Gastroesophageal reflux disease, unspecified whether esophagitis present Bilateral lower extremity edema Type 2 diabetes mellitus with complication, with long-term current use of insulin ([facility]) Tobacco user Tobacco use disorder Mixed hyperlipidemia Mixed hyperlipidemia Gout, unspecified cause, unspecified chronicity, unspecified site Vitamin deficiency Unspecified vitamin deficiency Gastro-esophageal reflux disease without esophagitis Edema, unspecified Edema Hyperlipidemia, unspecified Encounter for smoking cessation counseling Venous ulcer of right leg ([facility]) Antibiotic-induced yeast infection Primary hypertension- Primary Unspecified essential hypertension Diabetic polyneuropathy associated with type 2 diabetes mellitus (HCC) Chronic diastolic heart failure (HCC) Chronic diastolic heart failure Bilateral lower extremity edema Morbid (severe) obesity due to excess calories ([facility]) Type 2 diabetes mellitus with complication, with long-term current use of insulin ([facility]) Anxiety and depression Cigarette nicotine dependence without complication Encounter for screening mammogram for malignant neoplasm of breast Insomnia Insomnia, unspecified Non-seasonal allergic rhinitis, unspecified trigger Type 2 diabetes mellitus with unspecified complications ([facility]) Vitamin D deficiency, unspecified Gastro-esophageal reflux disease without esophagitis PAD (peripheral artery disease) Unspecified peripheral vascular disease Gastroesophageal reflux disease, unspecified whether esophagitis present Venous ulcer of right leg (HCC) Cellulitis of left lower extremity- Primary COPD exacerbation ([facility]) Obstructive chronic bronchitis with exacerbation Primary hypertension Unspecified essential hypertension Pulmonary hypertension ([facility]) Other chronic pulmonary heart diseases Morbid (severe) obesity due to excess calories ([facility]) Type 2 diabetes mellitus with complication, with long-term current use of insulin ([facility]) Anxiety and depression Fever, unspecified fever cause Hyperlipidemia, unspecified Tobacco user Tobacco use disorder Encounter for smoking cessation counseling documented in this encounter [facility] HealthcareEvaluation note* Diagnosis Obstructive sleep apnea- Primary Obstructive sleep apnea (adult) (pediatric) Pulmonary emphysema, unspecified emphysema type ([facility]) Primary hypertension ([facility]) Unspecified essential hypertension Type 2 diabetes mellitus with complication, with long-term current use of insulin ([facility]) Anxiety and depression ([facility]) Bilateral lower extremity edema Pulmonary emphysema, unspecified emphysema type ([facility])- Primary Primary hypertension ([facility]) Unspecified essential hypertension Class 3 severe obesity with serious comorbidity and body mass index (BMI) of 50.0 to 59.9 in adult, unspecified obesity type Obstructive sleep apnea Obstructive sleep apnea (adult) (pediatric) Pulmonary hypertension ([facility]) Other chronic pulmonary heart diseases Tobacco user Tobacco use disorder Cardiomegaly Primary hypertension ([facility])- Primary Unspecified essential hypertension Gastroesophageal reflux disease, unspecified whether esophagitis present Type 2 diabetes mellitus with complication, with long-term current use of insulin ([facility]) Mixed hyperlipidemia ([facility]) Mixed hyperlipidemia Tobacco user Tobacco use disorder Encounter for screening mammogram for malignant neoplasm of breast Chronic obstructive pulmonary disease, unspecified Other specified chronic obstructive pulmonary disease Anxiety and depression ([facility]) Edema, unspecified Edema Hyperlipidemia, unspecified ([facility]) Diabetic polyneuropathy associated with type 2 diabetes mellitus ([facility]) Gout, unspecified cause, unspecified chronicity, unspecified site Non-seasonal allergic rhinitis, unspecified trigger Bilateral lower extremity edema COPD exacerbation ([facility]) Obstructive chronic bronchitis with exacerbation Pulmonary emphysema, unspecified emphysema type ([facility]) Venous insufficiency Unspecified venous (peripheral) insufficiency Candidiasis of breast COPD exacerbation ([facility])- Primary Obstructive chronic bronchitis with exacerbation Pulmonary hypertension ([facility]) Other chronic pulmonary heart diseases Class 3 severe obesity with serious comorbidity and body mass index (BMI) of 50.0 to 59.9 in adult, unspecified obesity type Encounter for subsequent annual wellness visit (AWV) in Medicare patient- Primary Type 2 diabetes mellitus with unspecified complications Pulmonary emphysema, unspecified emphysema type ([facility]) Moderate persistent asthma without complication ([facility]) Primary hypertension ([facility]) Unspecified essential hypertension Type 2 diabetes mellitus with complication, with long-term current use of insulin ([facility]) Class 3 severe obesity with serious comorbidity and body mass index (BMI) of 50.0 to 59.9 in adult, unspecified obesity type Tobacco user Tobacco use disorder Other headache syndrome Malignant neoplasm of cervix uteri, unspecified Other specified disorders of adrenal gland Major depressive disorder, single episode, mild (HCC) ([facility]) Major depressive disorder, single episode, mild Non-pressure chronic ulcer of other part of left lower leg with fat layer exposed Chronic respiratory failure, unspecified whether with hypoxia or hypercapnia Disorder of adrenal gland, unspecified Non-pressure chronic ulcer of other part of right lower leg limited to breakdown of skin ([facility]) Non-recurrent acute suppurative otitis media of left ear without spontaneous rupture of tympanic membrane Primary hypertension ([facility])- Primary Unspecified essential hypertension Insomnia Insomnia, unspecified Type 2 diabetes mellitus with complication, with long-term current use of insulin ([facility]) Non-seasonal allergic rhinitis, unspecified trigger Type 2 diabetes mellitus with unspecified complications Anxiety and depression ([facility]) Gastro-esophageal reflux disease without esophagitis Edema, unspecified Edema Diabetic polyneuropathy associated with type 2 diabetes mellitus ([facility]) Chronic obstructive pulmonary disease, unspecified Pulmonary emphysema, unspecified emphysema type ([facility]) Bilateral lower extremity edema Tobacco user Tobacco use disorder Hyperpigmentation of skin Other dyschromia Primary hypertension ([facility])- Primary Unspecified essential hypertension Diabetic polyneuropathy associated with type 2 diabetes mellitus ([facility]) Pulmonary emphysema, unspecified emphysema type ([facility]) Critical limb ischemia of right lower extremity ([facility]) PAD (peripheral artery disease) ([facility]) Unspecified peripheral vascular disease Gastroesophageal reflux disease, unspecified whether esophagitis present Bilateral lower extremity edema Venous ulcer of right leg ([facility]) Type 2 diabetes mellitus with complication, with long-term current use of insulin ([facility]) Tobacco user Tobacco use disorder Encounter for smoking cessation counseling Kidney stone Calculus of kidney Adrenal mass 1 cm to 4 cm in diameter ([facility]) Radiculopathy, lumbar region Thoracic or lumbosacral neuritis or radiculitis, unspecified Non-seasonal allergic rhinitis, unspecified trigger Type 2 diabetes mellitus with unspecified complications Anxiety and depression ([facility])- Primary Morbid (severe) obesity due to excess calories ([facility]) Body mass index (BMI) 50.0-59.9, adult ([facility]) Malignant neoplasm of cervix uteri, unspecified Diabetic polyneuropathy associated with type 2 diabetes mellitus ([facility] Chronic diastolic heart failure ([facility] Chronic diastolic heart failure Primary hypertension ([facility]) Unspecified essential hypertension 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 Gastroesophageal reflux disease, unspecified whether esophagitis present Bilateral lower extremity edema Type 2 diabetes mellitus with complication, with long-term current use of insulin ([facility]) Tobacco user Tobacco use disorder Mixed hyperlipidemia ([facility]) Mixed hyperlipidemia Gout, unspecified cause, unspecified chronicity, unspecified site Vitamin deficiency Unspecified vitamin deficiency Gastro-esophageal reflux disease without esophagitis Edema, unspecified Edema Hyperlipidemia, unspecified ([facility]) Encounter for smoking cessation counseling Venous ulcer of right leg ([facility]) Antibiotic-induced yeast infection Primary hypertension ([facility])- Primary Unspecified essential hypertension Diabetic polyneuropathy associated with type 2 diabetes mellitus ([facility] Chronic diastolic heart failure ([facility]) Chronic diastolic heart failure Bilateral lower extremity edema Morbid (severe) obesity due to excess calories ([facility]) Type 2 diabetes mellitus with complication, with long-term current use of insulin ([facility]) Anxiety and depression ([facility]) Cigarette nicotine dependence without complication Encounter for screening mammogram for malignant neoplasm of breast Insomnia Insomnia, unspecified Non-seasonal allergic rhinitis, unspecified trigger Type 2 diabetes mellitus with unspecified complications Vitamin D deficiency, unspecified Gastro-esophageal reflux disease without esophagitis PAD (peripheral artery disease) ([facility]) Unspecified peripheral vascular disease Gastroesophageal reflux disease, unspecified whether esophagitis present Venous ulcer of right leg ([facility]) Cellulitis of left lower extremity- Primary COPD exacerbation ([facility]) Obstructive chronic bronchitis with exacerbation Primary hypertension ([facility] Unspecified essential hypertension Pulmonary hypertension ([facility]) Other chronic pulmonary heart diseases Morbid (severe) obesity due to excess calories ([facility]) Type 2 diabetes mellitus with complication, with long-term current use of insulin ([facility]) Anxiety and depression ([facility]) Fever, unspecified fever cause documented in this encounter [facility] HealthcareEvaluation note* Diagnosis Obstructive sleep apnea- [...] to 59.9 in adult, unspecified obesity type ([facility]) Obstructive sleep apnea Obstructive sleep apnea [...] to 59.9 in adult, unspecified obesity type ([facility]) Encounter for subsequent annual wellness visit [...] to 59.9 in adult, unspecified obesity type ([facility]) Tobacco user Tobacco use disorder Other headache syndrome Malignant neoplasm of cervix uteri, unspecified (HCC) Other specified disorders of adrenal gland (HCC) Major depressive disorder, single episode, mild Major depressive disorder, single episode, mild Non-pressure chronic ulcer of other part of left lower leg with fat layer exposed ([facility]) Chronic respiratory failure, unspecified whether with hypoxia or hypercapnia ([facility]) Disorder of adrenal gland, unspecified ([facility]) Non-pressure chronic ulcer of other part of right lower leg limited to breakdown of skin ([facility]) Non-recurrent acute suppurative otitis media of left ear without spontaneous rupture of tympanic membrane Primary hypertension- Primary Unspecified essential hypertension Insomnia Insomnia, unspecified Type 2 diabetes mellitus with complication, with long-term current use of insulin ([facility]) Non-seasonal allergic rhinitis, unspecified trigger Type 2 diabetes mellitus with unspecified complications ([facility]) Anxiety and depression Gastro-esophageal reflux disease without esophagitis Edema, unspecified Edema Diabetic polyneuropathy associated with type 2 diabetes mellitus ([facility]) Chronic obstructive pulmonary disease, unspecified ([facility]) Pulmonary emphysema, unspecified emphysema type ([facility]) Bilateral lower extremity edema Tobacco user Tobacco use disorder Hyperpigmentation of skin Other dyschromia Primary hypertension- Primary Unspecified essential hypertension Diabetic polyneuropathy associated with type 2 diabetes mellitus ([facility]) Pulmonary emphysema, unspecified emphysema type ([facility]) Critical limb ischemia of right lower extremity ([facility]) PAD (peripheral artery disease) Unspecified peripheral vascular disease Gastroesophageal reflux disease, unspecified whether esophagitis present Bilateral lower extremity edema Venous ulcer of right leg ([facility]) Type 2 diabetes mellitus with complication, with long-term current use of insulin ([facility]) Tobacco user Tobacco use disorder Encounter for smoking cessation counseling Kidney stone Calculus of kidney Adrenal mass 1 cm to 4 cm in diameter ([facility]) Radiculopathy, lumbar region Thoracic or lumbosacral neuritis or radiculitis, unspecified Non-seasonal allergic rhinitis, unspecified trigger Type 2 diabetes mellitus with unspecified complications ([facility]) Anxiety and depression- Primary Morbid (severe) obesity due to excess calories ([facility]) Body mass index (BMI) 50.0-59.9, adult ([facility]) Malignant neoplasm of cervix uteri, unspecified ([facility]) Diabetic polyneuropathy associated with type 2 diabetes mellitus ([facility]) Chronic diastolic heart failure ([facility]) Chronic diastolic heart failure Primary hypertension Unspecified essential hypertension 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 ([facility]) Gastroesophageal reflux disease, unspecified whether esophagitis [...] Morbid (severe) obesity due to excess calories ([facility]) Type 2 diabetes mellitus with complication, [...] Morbid (severe) obesity due to excess calories ([facility]) Type 2 diabetes mellitus with complication, with long-term current use of insulin ([facility]) Anxiety and depression Fever, unspecified fever [...] Morbid (severe) obesity due to excess calories ([facility]) Type 2 diabetes mellitus with hyperglycemia, with long-term current use of insulin ([facility]) documented in this encounter [facility] HealthcareEvaluation note* Diagnosis Obstructive sleep apnea- [...] to 59.9 in adult, unspecified obesity type ([facility]) Obstructive sleep apnea Obstructive sleep apnea (adult) [...] to 59.9 in adult, unspecified obesity type ([facility]) Encounter for subsequent annual wellness visit (AWV) [...] to 59.9 in adult, unspecified obesity type ([facility]) Tobacco user Tobacco use disorder Other headache syndrome Malignant neoplasm of cervix uteri, unspecified (HCC) Other specified disorders of adrenal gland (HCC) Major depressive disorder, single episode, mild Major depressive disorder, single episode, mild Non-pressure chronic ulcer of other part of left lower leg with fat layer exposed ([facility]) Chronic respiratory failure, unspecified whether with hypoxia or hypercapnia ([facility]) Disorder of adrenal gland, unspecified ([facility]) Non-pressure chronic ulcer of other part of right lower leg limited to breakdown of skin ([facility]) Non-recurrent acute suppurative otitis media of left ear without spontaneous rupture of tympanic membrane Primary hypertension- Primary Unspecified essential hypertension Insomnia Insomnia, unspecified Type 2 diabetes mellitus with complication, with long-term current use of insulin ([facility]) Non-seasonal allergic rhinitis, unspecified trigger Type 2 diabetes mellitus with unspecified complications ([facility]) Anxiety and depression Gastro-esophageal reflux disease without esophagitis Edema, unspecified Edema Diabetic polyneuropathy associated with type 2 diabetes mellitus ([facility]) Chronic obstructive pulmonary disease, unspecified ([facility]) Pulmonary emphysema, unspecified emphysema type ([facility]) Bilateral lower extremity edema Tobacco user Tobacco use disorder Hyperpigmentation of skin Other dyschromia Primary hypertension- Primary Unspecified essential hypertension Diabetic polyneuropathy associated with type 2 diabetes mellitus ([facility]) Pulmonary emphysema, unspecified emphysema type ([facility]) Critical limb ischemia of right lower extremity ([facility]) PAD (peripheral artery disease) Unspecified peripheral vascular disease Gastroesophageal reflux disease, unspecified whether esophagitis present Bilateral lower extremity edema Venous ulcer of right leg ([facility]) Type 2 diabetes mellitus with complication, with long-term current use of insulin ([facility]) Tobacco user Tobacco use disorder Encounter for smoking cessation counseling Kidney stone Calculus of kidney Adrenal mass 1 cm to 4 cm in diameter ([facility]) Radiculopathy, lumbar region Thoracic or lumbosacral neuritis or radiculitis, unspecified Non-seasonal allergic rhinitis, unspecified trigger Type 2 diabetes mellitus with unspecified complications [facility] [facility]) Anxiety and depression- Primary Morbid (severe) obesity due to excess calories ([facility]) Body mass index (BMI) 50.0-59.9, adult ([facility]) Malignant neoplasm of cervix uteri, unspecified ([facility]) Diabetic polyneuropathy associated with type 2 diabetes mellitus ([facility]) Chronic diastolic heart failure ([facility]) Chronic diastolic heart failure Primary hypertension Unspecified essential hypertension 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 ([facility]) Gastroesophageal reflux disease, unspecified whether esophagitis present Bilateral lower extremity edema Type 2 diabetes mellitus with complication, with long-term current use of insulin ([facility]) Tobacco user Tobacco use disorder Mixed hyperlipidemia Mixed hyperlipidemia Gout, unspecified cause, unspecified chronicity, unspecified site Vitamin deficiency Unspecified vitamin deficiency Gastro-esophageal reflux disease without esophagitis Edema, unspecified Edema Hyperlipidemia, unspecified Encounter for smoking cessation counseling Venous ulcer of right leg (HCC) Antibiotic-induced yeast infection Primary hypertension- Primary Unspecified essential hypertension Diabetic polyneuropathy associated with type 2 diabetes mellitus ([facility]) Chronic diastolic heart failure (HCC) Chronic diastolic heart failure Bilateral lower extremity edema Morbid (severe) obesity due to excess calories ([facility]) Type 2 diabetes mellitus with complication, with long-term current use of insulin ([facility]) Anxiety and depression Cigarette nicotine dependence without complication Encounter for screening mammogram for malignant neoplasm of breast Insomnia Insomnia, unspecified Non-seasonal allergic rhinitis, unspecified trigger Type 2 diabetes mellitus with unspecified complications ([facility]) Vitamin D deficiency, unspecified Gastro-esophageal reflux disease without esophagitis PAD (peripheral artery disease) Unspecified peripheral vascular disease Gastroesophageal reflux disease, unspecified whether esophagitis present Venous ulcer of right leg ([facility]) Cellulitis of left lower extremity- Primary COPD exacerbation ([facility]) Obstructive chronic bronchitis with exacerbation Primary hypertension Unspecified essential hypertension Pulmonary hypertension (HCC) Other chronic pulmonary heart diseases Morbid (severe) obesity due to excess calories ([facility]) Type 2 diabetes mellitus with complication, with long-term current use of insulin ([facility]) Anxiety and depression Fever, unspecified fever cause Encounter for subsequent annual wellness visit (AWV) in Medicare patient- Primary Mixed hyperlipidemia Mixed hyperlipidemia Type 2 diabetes mellitus with complication, with long-term current use of insulin ([facility]) Bilateral lower extremity edema Gastro-esophageal reflux disease without esophagitis Chronic diastolic heart failure (HCC) Chronic diastolic heart failure Primary hypertension Unspecified essential hypertension Pulmonary hypertension (HCC) Other chronic pulmonary heart diseases Diabetic polyneuropathy associated with type 2 diabetes mellitus ([facility]) Pulmonary emphysema, unspecified emphysema type ([facility]) Moderate persistent asthma without complication ([facility]) Insomnia Insomnia, unspecified Non-seasonal allergic rhinitis, unspecified trigger Type 2 diabetes mellitus with unspecified complications ([facility]) Anxiety and depression Antibiotic-induced yeast infection Chronic obstructive pulmonary disease, unspecified (HCC) Hyperlipidemia, unspecified Vaginal yeast infection Candidiasis of vulva and vagina Morbid (severe) obesity due to excess calories ([facility]) Encounter for dietary consultation- Primary Type 2 diabetes mellitus with hyperglycemia, with long-term current use of insulin ([facility]) Vitamin D deficiency Primary hypertension Unspecified essential hypertension Insulin long-term use (HCC) Encounter for long-term (current) use of insulin Hyperlipemia, mixed Mixed hyperlipidemia Microalbuminuria Proteinuria Class 3 severe obesity due to excess calories with serious comorbidity and body mass index (BMI) of 50.0 to 59.9 in adult ([facility]) documented in this encounter [facility] HealthcareEvaluation note* Diagnosis Obstructive sleep apnea- [...] to 59.9 in adult, unspecified obesity type ([facility]) Obstructive sleep apnea Obstructive sleep apnea [...] to 59.9 in adult, unspecified obesity type ([facility]) Encounter for subsequent annual wellness visit [...] to 59.9 in adult, unspecified obesity type ([facility]) Tobacco user Tobacco use disorder Other headache syndrome Malignant neoplasm of cervix uteri, unspecified (HCC) Other specified disorders of adrenal gland (HCC) Major depressive disorder, single episode, mild Major depressive disorder, single episode, mild Non-pressure chronic ulcer of other part of left lower leg with fat layer exposed ([facility]) Chronic respiratory failure, unspecified whether with hypoxia or hypercapnia ([facility]) Disorder of adrenal gland, unspecified (HCC) Non-pressure chronic ulcer of other part of right lower leg limited to breakdown of skin ([facility]) Non-recurrent acute suppurative otitis media of left ear without spontaneous rupture of tympanic membrane Primary hypertension- Primary Unspecified essential hypertension Insomnia Insomnia, unspecified Type 2 diabetes mellitus with complication, with long-term current use of insulin ([facility]) Non-seasonal allergic rhinitis, unspecified trigger Type 2 diabetes mellitus with unspecified complications ([facility]) Anxiety and depression Gastro-esophageal reflux disease without esophagitis Edema, unspecified Edema Diabetic polyneuropathy associated with type 2 diabetes mellitus ([facility]) Chronic obstructive pulmonary disease, unspecified (HCC) Pulmonary emphysema, unspecified emphysema type ([facility]) Bilateral lower extremity edema Tobacco user Tobacco use disorder Hyperpigmentation of skin Other dyschromia Primary hypertension- Primary Unspecified essential hypertension Diabetic polyneuropathy associated with type 2 diabetes mellitus ([facility]) Pulmonary emphysema, unspecified emphysema type (HCC) Critical limb ischemia of right lower extremity ([facility]) PAD (peripheral artery disease) Unspecified peripheral vascular disease Gastroesophageal reflux disease, unspecified whether esophagitis present Bilateral lower extremity edema Venous ulcer of right leg ([facility]) Type 2 diabetes mellitus with complication, with long-term current use of insulin ([facility]) Tobacco user Tobacco use disorder Encounter for smoking cessation counseling Kidney stone Calculus of kidney Adrenal mass 1 cm to 4 cm in diameter ([facility]) Radiculopathy, lumbar region Thoracic or lumbosacral neuritis or radiculitis, unspecified Non-seasonal allergic rhinitis, unspecified trigger Type 2 diabetes mellitus with unspecified complications ([facility]) Anxiety and depression- Primary Morbid (severe) obesity due to excess calories ([facility]) Body mass index (BMI) 50.0-59.9, adult ([facility]) Malignant neoplasm of cervix uteri, unspecified ([facility]) Diabetic polyneuropathy associated with type 2 [...] Morbid (severe) obesity due to excess calories ([facility]) Type 2 diabetes mellitus with complication, [...] Morbid (severe) obesity due to excess calories ([facility]) Type 2 diabetes mellitus with complication, with long-term current use of insulin ([facility]) Anxiety and depression Fever, unspecified fever [...] diabetes mellitus with unspecified complications ([facility]) Anxiety and depression Antibiotic-induced yeast infection Chronic obstructive pulmonary disease, unspecified (HCC) Hyperlipidemia, unspecified Vaginal yeast infection Candidiasis of vulva and vagina Morbid (severe) obesity due to excess calories ([facility]) Tobacco user Tobacco use disorder Encounter for smoking cessation counseling documented in this encounter [facility] noteNo assessment [facility] Work Phone: History general Narrative - [...] History sepsis 2010 Hospitalization History SEE ABOVE [employer] Other Hospital course Narrative No data available for this section [facility] progress note No data available for this section [facility] reason for referral (narrative) , Referral to Dr. Cortés Referred by: REGLA PHIPPS, Elbert Joya [facility] reason for referral (narrative)No reason for referral information availableSamaritan Hospital Work Phone: Advance Directives No Advanced Directives Records FoundDocuments on File Type Date Recorded Patient Butter Liquefier Expl anation Advance Directives and Living Will Power of Per Diem Registered Nurse Advance Directive Response Recorded Date/ Time Advance [...] section and content) DATE CREATED AUTHOR 10/30/2019 [facility] DATE CREATED AUTHOR AUTHOR'S ORGANIZ ATION 09/15/2020 [facility] DATE CREATED AUTHOR AUTHOR'S ORGANIZ ATION 12/19/2022 [facility] DATE CREATED AUTHOR AUTHOR'S ORGANIZ ATION 06/03/2024 [facility] DATE CREATED AUTHOR AUTHOR'S ORGANIZ ATION 01/30/2025 [facility] DATE CREATED AUTHOR AUTHOR'S ORGANIZ ATION 04/12/2025 [facility] DATE CREATED AUTHOR AUTHOR'S ORGANIZ ATION 04/19/[address] [facility] Care Team (unrecognized sect ion and content) Oleomargarine Maker Relationship Specialty Start Date End Date Ty Amin MD PCP - General Family Medicine 01/05/23 Oleomargarine Maker Relationship Specialty Start Date End Date Ty Amin MD PCP - General Family Medicine 01/05/23 Oleomargarine Maker Relationship Specialty Start Date End Date Ty Amin MD [address] [place] [address] PCP - General Family Medicine 09/20/23 Mckayla Blas NP [address] [place] [address] PCP - [facility] 09/07/23 09/05/90 Mckayla Blas NP [address] [place] [address] Nurse Practitioner Family Medicine 09/20/23 Oleomargarine Maker Relationship Specialty Start Date End Date Ty Amin MD [address] [place] [address] PCP - General Family Medicine 09/20/23 Mckayla Blas NP [address] [place] [address] PCP - [facility] 09/07/23 09/05/90 Mckayla Blas NP [address] [place] [address] Nurse Practitioner Family Medicine 09/20/23 Oleomargarine Maker Relationship Specialty Start Date End Date Ty Amin MD [address] [place] [address] PCP - General Family Medicine 09/20/23 Mckayla Blas NP [address] [place] [address] [facility] 09/07/23 09/05/90 Mckayla Blas NP [address] [place] [address] Nurse Practitioner Family Medicine 09/20/23 Oleomargarine Maker Relationship Specialty Start Date End Date Ty Amin MD [address] [place] [address] PCP - General Family Medicine 09/20/23 Mckayla Blas NP [address] [place] [address] PCP [facility] 09/07/23 09/05/90 Mckayla Blas NP [address] [place] [address] Nurse Practitioner Family Medicine 09/20/23 Oleomargarine Maker Relationship Specialty Start Date End Date Ty Amin MD [address] [place] [address] PCP - General Family Medicine 09/20/23 Mckayla Blas NP [address] [place] [address] PCP - [facility] 09/07/23 09/05/90 Mckayla Blas NP [address] [place] [address] Nurse Practitioner Family Medicine 09/20/23 Oleomargarine Maker Relationship Specialty Start Date End Date Ty Amin MD [address] [place] [address] PCP - General Family Medicine 09/20/23 Mckayla Blas NP [address] [place] [address] PCP [facility] 09/07/23 09/05/90 Mckayla Blas NP [address] [place] [address] Nurse Practitioner Family Medicine 09/20/23 Oleomargarine Maker Relationship Specialty Start Date End Date Ty Amin MD [address] [place] [address] PCP - General Family Medicine 09/20/23 Mckayla Blas NP [address] [place] [address] PCP - [facility] 09/07/23 09/05/90 Mckayla Blas NP [address] [place] [address] Nurse Practitioner Family Medicine 09/20/23 Oleomargarine Maker Relationship Specialty Start Date End Date Ty Amin MD [address] [place] [address] PCP - General Family Medicine 09/20/23 Mckayla Blas NP [address] [place] [address] [facility] 09/07/23 09/05/90 Mckayla Blas NP [address] [place] [address] Nurse Practitioner Family Medicine 09/20/23 Oleomargarine Maker Relationship Specialty Start Date End Date Ty Amin MD [address] [place] [address] PCP - General Family Medicine 09/20/23 Mckayla Blas NP [address] [place] [address] PCP [facility] 09/07/23 09/05/90 Mckayla Blas NP [address] [place] [address] Nurse Practitioner Family Medicine 09/20/23 Oleomargarine Maker Relationship Specialty Start Date End Date Ty Amin MD [address] [place] [address] PCP - General Family Medicine 09/20/23 Mckayla Blas NP [address] [place] [address] PCP - [facility] 09/07/23 09/05/90 Mckayla Blas NP [address] [place] [address] Nurse Practitioner Family Medicine 09/20/23 Oleomargarine Maker Relationship Specialty Start Date End Date Ty Amin MD [address] [place] [address] PCP - General Family Medicine 09/20/23 Mckayla Blas NP [address] [place] [address] PCP [facility] 09/07/23 09/05/90 Mckayla Blas NP [address] [place] [address] Nurse Practitioner Family Medicine 09/20/23 Oleomargarine Maker Relationship Specialty Start Date End Date Ty Amin MD [address] [place] [address] PCP - General Family Medicine 09/20/23 Mckayla Blas NP [address] [place] [address] PCP - [facility] 09/07/23 09/05/90 Mckayla Blas NP [address] [place] [address] Nurse Practitioner Family Medicine 09/20/23 Oleomargarine Maker Relationship Specialty Start Date End Date Ty Amin MD [address] [place] [address] PCP - General Family Medicine 09/20/23 Mckayla Blas NP [address] [place] [address] [facility] 09/07/23 09/05/90 Mckayla Blas NP [address] [place] [address] Nurse Practitioner Family Medicine 09/20/23 Oleomargarine Maker Relationship Specialty Start Date End Date Ty Amin MD [address] [place] [address] PCP - General Family Medicine 09/20/23 Mckayla Blas NP [address] [place] [address] PCP [facility] 09/07/23 09/05/90 Mckayla Blas NP [address] [place] [address] Nurse Practitioner Family Medicine 09/20/23 Oleomargarine Maker Relationship Specialty Start Date End Date Ty Amin MD [address] [place] [address] PCP - General Family Medicine 09/20/23 Mckayla Blas NP [address] [place] [address] PCP - [facility] 09/07/23 09/05/90 Mckayla Blas NP [address] [place] [address] Nurse Practitioner Family Medicine 09/20/23 Oleomargarine Maker Relationship Specialty Start Date End Date Ty Amin MD [address] [place] [address] PCP - General Family Medicine 09/20/23 Mckayla Blas NP [address] [place] [address] PCP [facility] 09/07/23 09/05/90 Mckayla Blas NP [address] [place] [address] Nurse Practitioner Family Medicine 09/20/23 Oleomargarine Maker Relationship Specialty Start Date End Date Ty Amin MD [address] [place] [address] PCP - General Family Medicine 09/20/23 Mckayla Blas NP [address] [place] [address] PCP - [facility] 09/07/23 09/05/90 Mckayla Blas NP [address] [place] [address] Nurse Practitioner Family Medicine 09/20/23 Oleomargarine Maker Relationship Specialty Start Date End Date Ty Amin MD [address] [place] [address] PCP - General Family Medicine 09/20/23 Mckayla Blas NP [address] [place] [address] [facility] 09/07/23 09/05/90 Mckayla Blas NP [address] [place] [address] Nurse Practitioner Family Medicine 09/20/23 Oleomargarine Maker Relationship Specialty Start Date End Date Ty Amin MD [address] [place] [address] PCP - General Family Medicine 09/20/23 Mckayla Blas NP [address] [place] [address] PCP [facility] 09/07/23 09/05/90 Mckayla Blas NP [address] [place] [address] Nurse Practitioner Family Medicine 09/20/23 Oleomargarine Maker Relationship Specialty Start Date End Date Ty Amin MD [address] [place] [address] PCP - General Family Medicine 09/20/23 Mckayla Blas NP [address] [place] [address] PCP - [facility] 09/07/23 09/05/90 Mckayla Blas NP [address] [place] [address] Nurse Practitioner Family Medicine 09/20/23 Oleomargarine Maker Relationship Specialty Start Date End Date Ty Amin MD [address] [place] [address] PCP - General Family Medicine 09/20/23 Mckayla Blas NP [address] [place] [address] Nurse Practitioner Family Medicine 09/20/23 Oleomargarine Maker Relationship Specialty Start Date End Date Ty Amin MD [address] [place] [address] PCP - General Family Medicine 09/20/23 Mckayla Blas NP [address] [place] [address] Nurse Practitioner Family Medicine 09/20/23 Oleomargarine Maker Relationship Specialty Start Date End Date Ty Amin MD [address] [place] [address] PCP - General Family Medicine 09/20/23 Mckayla Blas NP [address] [place] [address] Nurse Practitioner Family Medicine 09/20/23 Oleomargarine Maker Relationship Specialty Start Date End Date Ty Amin MD [address] [place] [address] PCP - General Family Medicine 09/20/23 Mckayla Blas NP [address] [place] [address] Nurse Practitioner Family Medicine 09/20/23 Oleomargarine Maker Relationship Specialty Start Date End Date Ty Amin MD [address] [place] [address] PCP - General Family Medicine 09/20/23 Mckayla Blas NP [address] [place] [address] Nurse Practitioner Family Medicine 09/20/23 Team Status: [...] BE BASED ON THE PRIMARY CLINICAL RECORDS. [employer] provides no warranty or guarantee of the accuracy or completeness of information in this document.
== END 2025-04-20 11:01 | disposition home or self-care (01) ==
LOC: WC 12:10
PROVIDERS: PCP Nurse Practitioner; Visit Provider Physician Assistant
DX: I87.311 Chronic venous hypertension (idiopathic) with ulcer of right lower extremity (principal); L97.812 Non-pressure chronic ulcer of other part of right lower leg with fat layer exposed
CPT/HCPCS: G0463

== ENCOUNTER 2025-04-27 13:22 | Outpatient (OUT) | payer MEDICARE, SELFPAY ==
--- OUTSIDE RECORDS SUMMARY | 2025-04-27 13:24 | XMS_ITS | Encounter Summary ---
Author Organization [facility] Address [address] [place] [address] Care Team Providers Care Cvt Tech Name Role Phone Ty Amin MD Primary Care Provider [phone] Mckayla Blas [employer]INC[employer]LE INDUSTRIAL HYGIENIST Unavailable [phone] Mckayla Blas NP Unavailable [phone] Encounter Details Date Type Department Care Team (Late st Contact Info) Description 07/14/2024 Orders Only [facility] [address] [place] [address] Mckayla Blas NP [address] [facility] [place] [address] Social History Tobacco Use Types Packs/Day Years [...] [facility] [address] [place] [address] Rain Souza MD [address] [place] [address] documented as of this encounter Procedures Procedure [...] documented as of this encounter Care Teams Cvt Tech Relationship Specialty Start Date End Date Ty Amin MD PCP - General Family Medicine 09/20/23 Mckayla Blas NP [address] [place] [address] PCP - [facility] 09/07/23 01/11/25 Mckayla Blas NP Nurse Practitioner Family Medicine 09/20/23 documented as of this encounter
--- OUTSIDE RECORDS SUMMARY | 2025-04-27 13:24 | XMS_ITS | Encounter Summary ---
[id number] [address] [place] [address] Care Team Providers Care Electronics Manufacturer Name Role Phone Mckayla Blas APRN-HAND[employer]AG PARTS CUTTER Primary Care Provider Encounter Details Date Type Department Care Team (Late st Contact Info) Description 05/03/[address] [facility] [address] [place] [address] Tramaine Romero DO [address] [place] [address], [address] [id number] Social History Tobacco Use Types Packs/Day Years [...] on filedocumented in this encounter Care Teams Electronics Manufacturer Relationship Specialty Start Date End Date Mckayla Blas APRN-[place] [address] PCP - General Nurse Practitioner 09/25/18 documented as of this encounter
--- OUTSIDE RECORDS SUMMARY | 2025-04-27 13:24 | XMS_ITS | Encounter Summary ---
Author Organization [facility] Address [address] [facility] [place] [address] Care Team Providers Care Longwall Foreman Name Role Phone Ty Amin MD Primary Care Provider [phone] Mckayla Blas PROPERTY CONSULTANT Unavailable [phone] Encounter Details Date Type Department Care Team (Late st Contact Info) Description 02/18/2025 Abstract [facility] [address] [place] [address] Mckayla Blas NP [address] [place] [address] Social History Tobacco Use Types Packs/Day Years [...] do you attend [facility] or [facility] services? More than 4 [...] Recorded Patient Health Questionnaire-2 Score 0 01/26/2025 [facility] [...] in the past [address] [facility], were you homeless or living [...] [facility] [address] [place] [address] Rain Souza MD [address] [place] [address] documented as of this encounter Visit Diagnoses Not on filedocumented in this encounter Additional Health Concerns Assessment Noted Time PHQ-9 Depression Total Score: 3 01/17/20 24 10:08 AM EDT documented as of this encounter Care Teams Longwall Foreman Relationship Specialty Start Date End Date Ty Amin MD PCP - General Family Medicine 09/20/23 Mckayla Blas NP Nurse Practitioner Family Medicine 09/20/23 documented as of this encounter
--- OUTSIDE RECORDS SUMMARY | 2025-04-27 13:24 | XMS_ITS | Encounter Summary ---
Author Organization [employer] Address [id number] [address] [place] [address] Care Team Providers Care Grease And Tallow Pumper Name Role Phone JuanjoseMckayla carcamo Krystal IRONING WORKER-IN HOUSE CRA Primary Care Provider Encounter Details Date Type Department Care Team (Late st Contact Info) Description 05/31/2020 Orders Only [facility] [address] [place] [address] External, Scanning Provider Social History Tobacco Use [...] ECG ORDERABLES Final Result Performing Organization Address [facility] Co de Phone Number MANUALLY TRANSCRIBED [...] ECG ORDERABLES Final Result Performing Organization Address [facility] Co de Phone Number MANUALLY TRANSCRIBED RESULTS * Pulmonary function test (10/24/2018) us Scanning Provider External PFT ORDERABLES Final Result Performing Organization Address [facility] Co de Phone Number MANUALLY TRANSCRIBED RESULTS * Nuc stress Lexiscan/Exercise (12/12/2016) Anatomical Region Laterality Modality Chest N/A Nuclear Medicine us Scanning Provider External CV STRESS ORDERABLES Final Result documented in this encounter Visit Diagnoses Not on filedocumented in this encounter Care Teams Grease And Tallow Pumper Relationship Specialty Start Date End Date Mckayla Blas, IRONING WORKER-IN HOUSE CRA [address] [place] [address] PCP - General Nurse Practitioner 09/25/18 documented as of this encounter
--- OUTSIDE RECORDS SUMMARY | 2025-04-27 13:25 | XMS_ITS | Encounter Summary ---
Author Organization [facility] Address [address] [place] [address] Care Team Providers Care Customer Liaison Name Role Phone Ty Amin MD Primary Care Provider [phone] Mckayla Blas NP Unavailable [phone] Mckayla Blas NP Unavailable [phone] Encounter Details Date Type Department Care Team (Late st Contact Info) Description 05/12/2024 Orders Only [facility] [address] [place] [address] Angela Cochran NP [address] [place] [address] Social History Tobacco Use Types [...] Health Questionnaire-2 Score 1 01/17/2024 [facility] - Occupational Stress Questionnaire Answer [...] [facility] [address] [place] [address] Rain Souza MD [address] [place] [address] documented as of this encounter Procedures Procedure [...] as of this encounter Care Teams Customer Liaison Relationship Specialty Start Date End Date Ty Amin MD PCP - General Family Medicine 09/20/23 Mckayla Blas NP [address] [place] [address] PCP - [facility] 09/07/23 01/11/25 Mckayla Blas NP Nurse Practitioner Family Medicine 09/20/23 documented as of this encounter
--- OUTSIDE RECORDS SUMMARY | 2025-04-27 13:25 | XMS_ITS | Encounter Summary ---
Author Organization [facility] Address [id number] [address] [place] [address] Care Team Providers Care Resource Technician Name Role Phone JuanjoseMckayla carcamo Krystal MINE CAR MECHANIC-AUCTION BLOCK CLERK Primary Care Provider Encounter Details Date Type Department Care Team (Late st Contact Info) Description 06/11/2020 Orders Only [facility] [address] [place] [address] External, Scanning Provider Social History Tobacco Use [...] on filedocumented in this encounter Care Teams Resource Technician Relationship Specialty Start Date End Date Mckayla Blas, MINE CAR MECHANIC-AUCTION BLOCK CLERK [address] [place] [address] PCP - General Nurse Practitioner 09/25/18 documented as of this encounter
--- OUTSIDE RECORDS SUMMARY | 2025-04-27 13:25 | XMS_ITS | Encounter Summary ---
Author Organization [facility] Address [address] [place] [address] Care Team Providers Care Tactical Response Group Officer Name Role Phone Ty Amin MD Primary Care Provider [phone] Ty Amin MD Primary Care Provider [phone] Mckayla Blas CARPET MEASURER Unavailable [phone] Mckayla Blas CARPET MEASURER Unavailable [phone] Encounter Details Date Type Department Care Team (Late st Contact Info) Description 08/31/2023 Clinisync Result Encounter [facility] External Department Unsolicited Andra Alcala PA [address] [place] [address] [address] [place], [place] [id number] Social History Tobacco Use Types Packs/Day Years [...] Recorded Patient Health Questionnaire-2 Score 2 07/10/2023 [facility] - Occupational Stress Questionnaire Answer Date [...] [facility] [address] [place] [address] Rain Souza MD [address] [place] [address] documented as of this encounter Procedures Procedure [...] ORDERAB LES Final Result Performing Organization Address City/[facility]/ZIP Co de Phone Number [facility] * BLOOD CULTURE 1 (09/10/2023 2:05 PM EST) BLOOD CULTURE 1 Blood Culture 1 NG5D NO GROWTH AT 5 DAYS.^NO GROWTH AT 5 DAYS. TB 09/10/2023 2:05 PM EST 09/10/2023 2:28 PM EST Narrative [facility] - 09/16/2023 1:07 PM EDT us Generic External Data Provider LAB BLOOD ORDERAB LES Final Result Performing Organization Address [facility] Co de Phone Number [facility] * ECG 12-LEAD (08/31/2023 6:08 PM EST) Anatomical Region Laterality Modality Other 08/31/2023 6:08 PM EST Narrative 09/02/2023 7:32 [place] [address] Electrocardiograph Report Signed Patient: MITZI MACIAS MR#: [id number] : 1970 Acct:[id number] Age/Sex: 53 / F ADM Date: 08/31/23 Loc: [place] 214-[address]: Jacqueline Becerra D.O. Ordering Physician: Andra Alcala Date of Service: 08/31/23 Procedure(s): ECG 12 lead Accession Number(s): [id number] cc: [facility] Test Date: 2023-08-31 Pat Name: MITZI MACIAS Department: Room: - Gender: Female Clinical Support Specialist: : 1970 Requested By: MCKAYLA BLAS Order Number: [id number] Galina MD: LAURI DIOR Measurements Intervals [place] Rate: 102 P: 67 ID: 144 QRS: 52 QRSD: 72 T: 49 QT: 326 QTc: 385 Interpretive Statements 1120 Sinus tachycardia 4068 Nonspecific Twave abnormality 8102 Low QRS voltage in chest leads 9140 abnormal rhythm ECG Compared to ECG 12/04/2022 21:27:48 Electronically Signed On 09-02-2023 7:31:43 EST by LAURI DIOR Dictated By: Lauri Dior D.O. Signed By: 09/02/23731 DD/ 180 TD/TT: Receiving Lead: Procedure Note Radiology, Radiologist, - 09/02/2023 [place] [address] Electrocardiograph Report Signed Patient: MITZI MACIAS LMR#: [id number] : 1970Acct:[id number] Age/Sex: 53 / FADM Date: 08/31/23 Loc: [place] 214-[address]: Jacqueline Becerra D.O. Ordering Physician: Andra Alcala Date of Service: 08/31/23 Procedure(s): ECG 12 lead Accession Number(s): [id number] cc: [facility] Test Date: 2023-08-31 Pat Name: MITZI MACIAS Department: Room: - Gender: Female Clinical Support Specialist: : 1970 Requested By: MCKAYLA BLAS Order Number: [id number] Reading MD: LAURI DIOR Measurements Intervals [place] Rate: 102 P: 67 ID: 144 QRS: 52 QRSD: 72 T: 49 QT: 326 QTc: 385 Interpretive Statements 1120 Sinus tachycardia 4068 Nonspecific Twave abnormality 8102 Low QRS voltage in chest leads 9140 abnormal rhythm ECG Compared to ECG 12/04/2022 21:27:48 Electronically Signed On 09-02-2023 7:31:43 EST by LAURI DIOR Dictated By: Lauri Dior D.O. Signed By:09/02/23731 DD/ 07 TD/TT: Receiving Lead: Andra [facility] Final Result documented in this encounter Visit Diagnoses Not on filedocumented in this encounter Care Teams Tactical Response Group Officer Relationship Specialty Start Date End Date Ty Amin MD PCP - General Family Medicine 01/05/23 09/19/23 Ty Amin MD PCP - General Family Medicine 09/20/23 Mckayla Blas NP [address] [place] [address] PCP - [facility] 09/07/23 01/11/25 Mckayal Blas NP Nurse Practitioner Family Medicine 09/20/23 documented as of this encounter
--- OUTSIDE RECORDS SUMMARY | 2025-04-27 13:25 | XMS_ITS | Encounter Summary ---
Author Organization [facility] Address [address] [place] [address] Care Team Providers Care Retail Branch Manager Name Role Phone Ty Amin MD Primary Care Provider [phone] Mckayla Blas BREAKFAST ATTENDANT Unavailable [phone] Mckayla Blas NP Unavailable [phone] Encounter Details Date Type Department Care Team (Late st Contact Info) Description 04/14/2024 Orders Only [facility] [address] [place] [address] Mckayla Blas NP [address] [facility] [place] [address] Social History Tobacco Use Types Packs/Day Years [...] often do you attend chur ch or caodaism services? 1 to 4 times per year 07/10/2023 Do you belong to any clubs o r organizations such as adventist groups, unions, fraternal [...] [facility] [address] [place] [address] Rain Souza MD [address] [place] [address] documented as of this encounter Procedures Procedure Name Priority Date/Time Associated Diagnosis Comments XR ANKLE 3+ VIEWS RIGHT Routine 04/14/2024 2:57 PM EDT XR ANKLE 3+ VIEWS RIGHT Routine 04/14/2024 11:20 AM EDT documented in this encounter Results * XR ankle 3+ views right (04/14/2024 2:57 PM EDT) Anatomical Region Laterality Modality Lower Extremities, Ankle Right Radiogr aphic Imaging us Mckayla Blas BREAKFAST ATTENDANT IMG XR PROCEDURES Final Result * XR [...] as of this encounter Care Teams Retail Branch Manager Relationship Specialty Start Date End Date Ty Amin MD PCP - General Family Medicine 09/20/23 Mckayla Blas NP [address] [place] [address] PCP - [facility] 09/07/23 01/11/25 Mckayla Blas NP Nurse Practitioner Family Medicine 09/20/23 documented as of this encounter
--- OUTSIDE RECORDS SUMMARY | 2025-04-27 13:25 | XMS_ITS | Encounter Summary ---
Author Organization [facility] Address [address] [place] [address] Care Team Providers Care Pump Oiler Name Role Phone Ty Amin MD Primary Care Provider [phone] Ty Amin MD Primary Care Provider [phone] Mckayla Blas PANEL ASSEMBLER Unavailable [phone] Mckayla Blas PANEL ASSEMBLER Unavailable [phone] Encounter Details Date Type Department Care Team (Late st Contact Info) Description 09/12/2023 Orders Only [facility] [address] [place] [address] Social History Tobacco Use Types Packs/Day Years [...] do you attend chur or adventist services? 1 to 4 times [...] Patient Health Questionnaire-2 Score 2 07/10/2023 [facility] of Occupat [...] [facility] [address] [place] [address] Rain Souza MD [address] [place] [address] documented as of this encounter Procedures Procedure Name Priority Date/Time Associated Diagnosis Comments XR CHEST 1 VIEW Routine 09/11/2023 4:52 PM EST documented in this encounter Results * XR chest 1 view (09/11/2023 4:52 PM EST) Anatomical Region Laterality Modality Chest Radiographic Kalani ging [facility] IMG XR PROCEDURES Final Result documented in this encounter Visit Diagnoses Not on filedocumented in this encounter Care Teams Pump Oiler Relationship Specialty Start Date End Date Ty Amin MD PCP - General Family Medicine 01/05/23 09/19/23 Ty Amin MD PCP - General Family Medicine 09/20/23 Mckayla Blas NP [address] [place] [address] PCP - [facility] 09/07/23 01/11/25 Mckayla Blas NP Nurse Practitioner Family Medicine 09/20/23 documented as of this encounter
--- OUTSIDE RECORDS SUMMARY | 2025-04-27 13:25 | XMS_ITS | Encounter Summary ---
Author Organization [facility] Address [address] [place] [address] Care Team Providers Care Analysis Specialist Name Role Phone Ty Amin MD Primary Care Provider [phone] Mckayla Blas NP Unavailable [phone] Mckayla Blas NP Unavailable [phone] Encounter Details Date Type Department Care [...] [facility] [address] [place] [address] Rain Souza MD [address] [place] [address] documented as of this encounter Procedures Procedure Name Priority Date/Time Associated Diagnosis Comments SEGMENTAL BLOOD PRESSURE 04/24/2024 11:20 AM EDT documented in this encounter Results * SEGMENTAL BLOOD PRESSURE (04/24/2024 11:20 AM EDT) Anatomical Region Laterality Modality Radiographic Kalani ging 04/24/2024 11:2 0 AM EDT Narrative 04/24/2024 11:23 AM EDT The [address] [address] Vein Report Signed Patient: MITZI MACIAS MR#: [id number] : 1970 Acct:[id number] Age/Sex: 53 / F ADM Date: 04/24/24 Loc: VC Attending Dr: Rafael Gongora Ordering Physician: Rafael Gongora Date of Service: 04/24/24 Procedure(s): VC SEGMENTAL PRESSURES Accession Number(s): [id number] cc: Mckayla Blas NP; Rafael Gongora The [place] [id number] Patient Name: MITZI MACIAS MRN: [id number] date: 1970 Sex: F Assigned Patient Location: VC Current Patient Location: VC Accession/Order Number: [id number] Exam Date: 04/24/2024 10:25 Report Date: 04/24/2024 11:20 At the request of: RAFAEL GONGORA Procedure: VC SEGMENTAL PRESSURES EXAM: VC SEGMENTAL PRESSURES HISTORY: R09.89 COMPARISON: None. FINDINGS: Segmental pressures presented as follows (right, left) in mmHg. Brachial: 169, 166 Upper thigh: Not obtained Lower thigh: 129, 119 Calf: 124, 106 DPA: 108, 105 BEARING MACHINE OPERATOR: 100, 91 1st Toe: 124, [...] Signed By: 04/24/24 1123 DD/ 1120 TD/TT: Clay Molder: Procedure Note Radiology, Radiologist, MD - 04/24/2024 [place] [address] Vein Report Signed Patient: MITZI MACIAS LMR#: [id number] : 1970Acct:[id number] Age/Sex: 53 / FADM Date: 04/24/24 Loc: VC Attending Dr: [place] Gongora Ordering Physician: [place] Gongora Date of Service: 04/24/24 Procedure(s): VC SEGMENTAL PRESSURES Accession Number(s): [id number] cc: Mckayla Blas NP; Rafael Gongora [place] [id number] Patient Name: MITZI MACIAS MRN: [id number] date: 1970 Sex: F Assigned Patient Location: VC Current Patient Location: VC Accession/Order Number: [id number] Exam Date: 04/24/2024 10:25 Report Date: 04/24/2024 11:20 At the request of: RAFAEL GONGORA Procedure: VC SEGMENTAL PRESSURES EXAM: VC SEGMENTAL PRESSURES HISTORY: R09.89 COMPARISON: None. FINDINGS: Segmental pressures presented as follows (right, left) in mmHg. Brachial: 169, 166 Upper thigh: Not obtained Lower thigh: 129, 119 Calf: 124, 106 DPA: 108, 105 BEARING MACHINE OPERATOR: 100, 91 1st Toe: 124, [...] M.D. Signed By:04/24/24 1123 DD/ 1120 TD/TT: Clay Molder: us Generic External Data Provider IMG XR PROCEDURES Final Result documented in this encounter Visit Diagnoses Not on filedocumented in this encounter Additional Health Concerns Assessment Noted Time PHQ-9 Depression Total Score: 3 01/17/20 24 10:08 AM EDT documented as of this encounter Care Teams Analysis Specialist Relationship Specialty Start Date End Date Ty Amin MD PCP - General Family Medicine 09/20/23 Mckayla Blas NP [address] [place] [address] [facility]CP - [facility] 09/07/23 01/11/25 Mckayla Blas NP Nurse Practitioner Family Medicine 09/20/23 documented as of this encounter
--- OUTSIDE RECORDS SUMMARY | 2025-04-27 13:25 | XMS_ITS | Encounter Summary ---
Author Organization [facility] Address [address] [place] [address] Care Team Providers Care Manager Aviation Name Role Phone Ty Amin MD Primary Care Provider [phone] Mckayla Blas NP Unavailable [phone] Mckayla Blas NP Unavailable [phone] Encounter Details Date Type Department Care [...] you attend chur ch or confucianism services? 1 to 4 times [...] [facility] [address] [place] [address] Rain Souza MD [address] [place] [address] documented as of this encounter Procedures Procedure Name Priority Date/Time Associated Diagnosis Comments MR LUMBAR SPINE WO CON 05/12/2024 2:41 PM EST documented in this encounter Results * MR LUMBAR SPINE WO CON (05/12/2024 2:41 PM EST) Anatomical Region Laterality Modality Other 05/12/2024 2:41 PM EST Narrative 05/12/2024 2:43 PM EST The [address] [address] Magnetic Resonance Report Signed Patient: MITZI MACIAS MR#: [id number] : 1970 Acct:[id number] Age/Sex: 53 / F ADM Date: 05/12/24 Loc: MRI Attending Dr: Angela Chin NP Ordering Physician: Angela Chin NP Date of Service: 05/12/24 Procedure(s): MR lumbar spine wo con Accession Number(s): [id number] cc: Mckayla Blas NP; Angela Chin NP [address] [address] Patient Name: MITZI MACIAS MRN: [facility]:[id number] date: 1970 Sex: F Assigned Patient Location: MRI Current Patient Location: CT Accession/Order Number: [id number] Exam Date: 05/12/2024 09:21 Report Date: 05/12/2024 [...] Signed By: 05/12/24 1443 DD/ 40 TD/TT: Evidence Technician: Procedure Note Radiology, Radiologist, MD - 05/12/2024 [place] [address] Magnetic Resonance Report Signed Patient: MITZI MACIAS LMR#: [id number] : 1970Acct:[id number] Age/Sex: 53 / FADM Date: 05/12/24 Loc: MRI Attending Dr: Angela Chin NP Ordering Physician: Angela Chin NP Date of Service: 05/12/24 Procedure(s): MR lumbar spine wo con Accession Number(s): [id number] cc: Mckayal Blas SUPERVISOR POWDERED METAL; Angeal Chin NP The [address] [address] Patient Name: MITZI MACIAS MRN: [id number] date: 1970 Sex: F Assigned Patient Location: MRI Current Patient Location: CT Accession/Order Number: [id number] Exam Date: 05/12/2024 09:21 Report Date: 05/12/2024 [...] M.D. Signed By:05/12/24 1443 DD/ 1441 TD/TT: Evidence Technician: Generic External Data Provider [facility] Final Result documented in this encounter Visit Diagnoses Not on filedocumented in this encounter Additional Health Concerns Assessment Noted Time PHQ-9 Depression Total Score: 3 01/17/20 24 10:08 AM EDT documented as of this encounter Care Teams Manager Aviation Relationship Specialty Start Date End Date Ty Amin MD PCP - General Family Medicine 09/20/23 Mckayla Blas NP [address] [place] [address] [address] - [facility] 09/07/23 01/11/25 Mckayla Blas NP Nurse Practitioner Family Medicine 09/20/23 documented as of this encounter
--- OUTSIDE RECORDS SUMMARY | 2025-04-27 13:25 | XMS_ITS | Encounter Summary ---
Author Organization [facility] Address [address] [place] [address] Care Team Providers Care Manager Studio Name Role Phone Ty Amin MD Primary Care Provider [phone] Mckayla Blas RV DETAILER Unavailable [phone] Mckayla Blas NP Unavailable [phone] Encounter Details Date Type Department Care Team (Late st Contact Info) Description 01/07/2025 Abstract [facility] [address] [place] [address] Mckayla Blas NP [address] [facility] [address] Social History Tobacco Use Types Packs/Day Years [...] Recorded Patient Health Questionnaire-2 Score 1 01/17/2024 [facility] Occupat [facility] - Occupational Stress [...] any time in the past 12 m [facility], were you homeless or living in [...] [facility] [address] [place] [address] Rain Souza MD [address] [place] [address] documented as of this encounter Visit Diagnoses Not on filedocumented in this encounter Additional Health Concerns Assessment Noted Time PHQ-9 Depression Total Score: 3 01/17/20 24 10:08 AM EDT documented as of this encounter Care Teams Manager Studio Relationship Specialty Start Date End Date Ty Amin MD PCP - General Family Medicine 09/20/23 Mckayla Blas NP [address] [place] [address] PCP - [facility] 09/07/23 01/11/25 Mckayla Blas NP Nurse Practitioner Family Medicine 09/20/23 documented as of this encounter
--- OUTSIDE RECORDS SUMMARY | 2025-04-27 13:25 | XMS_ITS | Encounter Summary ---
Author Organization [facility] Address [address] [place] [address] Care Team Providers Care Laundry Attendant Name Role Phone Ty Amin MD Primary Care Provider [phone] Mckayla Blas NP Unavailable [phone] Mckayla Blas NP Unavailable [phone] Encounter Details Date Type Department Care [...] [facility] [address] [place] [address] Rain Souza MD [address] [place] [address] documented as of this encounter Procedures Procedure Name Priority Date/Time Associated Diagnosis Comments CT ABDOMEN PELVIS W CON 05/12/2024 2:16 PM EST documented in this encounter Results * CT ABDOMEN PELVIS W CON (05/12/2024 2:16 PM EST) Anatomical Region Laterality Modality Other 05/12/2024 2:16 PM EST Narrative 05/12/2024 2:19 PM EST The [address] [address] [address] Scan Report Signed Patient: MITZI MACIAS MR#: [id number] : 1970 Acct:[id number] Age/Sex: 53 / F ADM Date: 05/12/24 Loc: CT Attending Dr: Sarah MAYERS Ordering Physician: Sarah Vega Date of Service: 05/12/24 Procedure(s): CT abdomen pelvis w con Accession Number(s): [id number] cc: Mckayla Blas NP [address] [address] Patient Name: MITZI MACIAS MRN: [id number] date: 1970 Sex: F Assigned Patient Location: CT Current Patient Location: Accession/Order Number: [id number] Exam Date: 05/12/2024 11:15 Report Date: 05/12/2024 [...] By: 05/12/24 1419 DD/ 1416 TD/TT: Supervisor Lead Refinery: Procedure Note Radiology, Radiologist, - 05/12/2024 [place] [address] CT Scan Report Signed Patient: MITZI MACIAS LMR#: [id number] : 1970Acct:[id number] Age/Sex: 53 / FADM Date: 05/12/24 Loc: CT Attending Dr: Sarah MAYERS Ordering Physician: Sarah Vega Date of Service: 05/12/24 Procedure(s): CT abdomen pelvis w con Accession Number(s): [id number] cc: Mckayla Blas NP The [place] [address] Patient Name: MITZI MACIAS MRN: [id number] date: 1970 Sex: F Assigned Patient Location: CT Current Patient Location: Accession/Order Number: [id number] Exam Date: 05/12/2024 11:15 Report Date: 05/12/2024 [...] Signed By:05/12/24 1419 DD/ 1416 TD/TT: Supervisor Lead Refinery: us Generic External Data Provider [facility] Final Result documented in this encounter Visit Diagnoses Not on filedocumented in this encounter Additional Health Concerns Assessment Noted Time PHQ-9 Depression Total Score: 3 01/17/20 24 10:08 AM EDT documented as of this encounter Care Teams Laundry Attendant Relationship Specialty Start Date End Date Ty Amin MD PCP - General Family Medicine 09/20/23 Mckayla Blas NP [address] [place] [address] PCP - [facility] 09/07/23 01/11/25 Mckayla Blas NP Nurse Practitioner Family Medicine 09/20/23 documented as of this encounter
--- OUTSIDE RECORDS SUMMARY | 2025-04-27 13:26 | XMS_ITS | Clinical Summary ---
Author Organization [facility] Address [address] [place] [address] Care Team Providers Care Consulting Practice Manager Name Role Phone Mckayla Blas MD Primary Care Provider [phone] Allergies No known active allergies Medications amitriptyline [...] SUBCUTANEOUSLY TWICE DAILY 2 Active HYDROcodone-ac etaminophen ([employer]) 5-325 mg tablet TAKE 1 TABLET BY MOUTH THREE TIMES A DAY NEEDED FOR PAIN MUST LAST 30 DAYS 4 Active DULoxetine (Cymbalta) [address] capsule Take 1 tablet by mouth in the morning. Active ergocalciferol (Vitamin D-2) 1.25 MG (95084 Units) capsule Take 1.25 mg by mouth. 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 USP current use of inhaled steroid 025 Vitamin [...] Assessment & Plan: Open wounds refer to [facility] Wound Care Vaginal yeast infection [...] [facility] Cardiology as well Encounters Date Type Department Care Team Description 02/04/2025 Results Follow-Up Cardiology [address] [place] [address] Karma Chatterjee CNP Complete Echo (TTE) w/wo Imaging Agent, Strain, 3D, Bubble Study 01/30/2025 Orders Only [facility] Heart at [facility] [address] [place] [address] Provider, MD Dale from Last 3 Months Family History Medical [...] drink = 0.6 oz pur e alcohol) [place] Safety & Environment Answer Date Rec orded [...] Months Insurance [employer] MEDICARE Care Teams Consulting Practice Manager Relationship Specialty Start Date End Date Mckayla Blas MD [address] [place] [address] PCP - General Nurse Practitioner 11/13/23
--- OUTSIDE RECORDS SUMMARY | 2025-04-27 13:26 | XMS_ITS | Clinical Summary ---
Author Organization [facility] Address [id number] [address] [place] [address] Care Team Providers Care Conveyor Operator Name Role Phone Wan Mckayla Krystal PEREZN-MANAGER CT Primary Care Provider Allergies No known active [...] Medical Devices Not on file Insurance [place]ICAID [place] [employer] MEDICARE Care Teams Conveyor Operator Relationship Specialty Start Date End Date Mckayla Blas, AUTOCAD TECHNICIAN-MANAGER CT [address] [place] [address] PCP - General Nurse Practitioner 09/25/18
--- OUTSIDE RECORDS SUMMARY | 2025-04-27 13:26 | XMS_ITS | Encounter Summary ---
Author Organization [facility] Address [address] [facility] [place] [address] Care Team Providers Care Hogshead Filler Name Role Phone Ty Amin MD Primary Care Provider [phone] Mckayla Blas HARM REDUCTION WORKER Unavailable [phone] Mckayla Blas NP Unavailable [phone] Encounter Details Date Type Department Care Team (Late st Contact Info) Description 12/17/2023 Orders Only [facility] [address] [place] [address] Mckayla Blas NP [address] [place] [address] Social History Tobacco Use Types Packs/Day Years [...] Recorded Patient Health Questionnaire-2 Score 0 11/01/2023 [facility] - Occupational Stress Questionnaire Answer Date Recorded [...] [facility] [address] [place] [address] Rain Souza MD [address] [place] [address] documented as of this encounter Procedures Procedure Name Priority Date/Time Associated Diagnosis Comments MM SCREENING MAMM WITH 3D SERENA - US AND ADDITIONAL Routine 12/14/2023 8:34 AM EDT documented in this encounter Results * MM SCREENING MAMM WITH 3D SERENA - US AND ADDITIONAL (12/14/2023 8:34 AM EDT) Anatomical Region Laterality Modality Radiographic Kalani ging us Mckayla Blas HARM REDUCTION WORKER IMG XR PROCEDURES Final Result documented in this encounter Visit Diagnoses Not on filedocumented in this encounter Care Teams Hogshead Filler Relationship Specialty Start Date End Date Ty Amin MD PCP - General Family Medicine 09/20/23 Mckayla Blas NP [address] [place] [address] PCP - [facility] 09/07/23 01/11/25 Mckayla Blas NP Nurse Practitioner Family Medicine 09/20/23 documented as of this encounter
--- OUTSIDE RECORDS SUMMARY | 2025-04-27 13:26 | XMS_ITS | Clinical Summary ---
Author Organization [facility] Address [address] [place] [address] Care Team Providers Care Agronomy Manager Name Role Phone Ty Amin MD Primary Care Provider [phone] Mckayla Blas NP Unavailable [phone] Allergies No known active allergies Medications [...] if needed for wheezing Active HYDROcodone-acetam inophen ([place]) 5-325 MG tablet 1 tablet as [...] 25 Active ergocalciferol (Vitamin D2) 1.25 MG (33940 UT) capsuleIndications :Vitamin D deficiency, unspecified Take [...] at bedtime 90 tablet 1 01/27/20 25 Active aspirin 81 MG chewable tabletIndications: Type 2 diabetes mellitus with complication, with long-term current use of insulin (HCC) Chew 1 tablet (81 mg) Daily 90 tablet 3 01/27/20 25 Active cetirizine (ZyrTEC) 10 MG tabletIndications: Non-seasonal allergic rhinitis, unspecified trigger Take 1 tablet (10 mg) by mouth Daily 90 tablet 1 01/27/20 25 Active dapagliflozin (Farxiga) 10 MGIndications:Type 2 diabetes mellitus with unspecified complications (HCC) Take 1 tablet (10 mg) by mouth Daily 90 tablet 1 01/27/20 25 Active DULoxetine (Cymbalta) [address] capsuleIndications :Anxiety and depression Take 1 capsule (60 mg) by mouth in the morning and 1 capsule (60 mg) before bedtime. Do not crush or chew. 180 capsule 01/27/20 25 Active fluconazole (Diflucan) 150 MG tabletIndications: Antibiotic-induced yeast infection One time dose, repeat in 3 days . Do not take cholesterol pill while taking this medication. Once finished then resume 2 tablet 1 01/27/20 25 Active furosemide (Lasix) 20 MG tabletIndications: Bilateral lower extremity edema Take 1 tablet (20 mg) by mouth Daily as needed (edema) Take in the afternoon as needed 90 tablet 01/27/20 25 Active furosemide (Lasix) 40 MG tabletIndications: Bilateral lower extremity edema Take 1 tablet (40 mg) by mouth Daily 90 tablet 1 01/27/20 25 Active hydrALAZINE (Apresoline) 25 MG tabletIndications: Primary hypertension Take 1 tablet (25 mg) by mouth in the morning and 1 tablet (25 mg) before bedtime. 180 tablet 1 01/27/20 25 Active lisinopril 20 MG tabletIndications: Primary hypertension Take 1 tablet (20 mg) by mouth Daily 90 tablet 01/27/20 25 Active omeprazole (PriLOSEC) [address] capsuleIndications :Gastro-esophageal reflux disease without esophagitis Take 1 capsule (20 mg) by mouth in the morning. Take before meals. 90 capsule 01/27/20 25 Active potassium chloride ER (Micro-K) 10 MEQ ER capsuleIndications :Bilateral lower extremity edema Take 1 capsule (10 mEq) by mouth Daily Take 1 capsule (10 mEq) by mouth in the morning. 90 capsule 01/27/20 25 Active Roflumilast 500 MCG tabletIndications: Chronic obstructive pulmonary disease, unspecified (HCC) Take 1 tablet by mouth Daily 90 tablet 1 01/27/20 25 Active simvastatin (Zocor) 10 MG tabletIndications: Hyperlipidemia, unspecified Take 1 tablet (10 mg) by mouth at bedtime 90 tablet 1 01/27/20 25 Active insulin glargine (Lantus) 100 UNIT/ML injectionIndicatio ns:Type 2 diabetes mellitus with hyperglycemia, with long-term current use of insulin ([facility]) Inject 58 Units under the skin in the morning and 58 Units before bedtime. 104.4 mL 1 01/30/20 25 026 Active insulin glargine (Lantus SoloStar) 100 UNIT/ML penIndications:Typ e 2 diabetes mellitus with hyperglycemia, with long-term current use of insulin ([facility]) INJECT 58 UNITS SUBCUTANEOUSLY TWICE [...] wrapped, 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 as possible control room tender current use of inhaled steroid 025 [...] see if helps Encounter for subsequent [facility] wellness visit (AWV) in Medicare patient 01/17/2024 [...] can try ubrelvy #3 samples given: Lot [id number], exp 03/2025 Mixed incontinence 11/14/2023 Arthritis 11/14/2023 [...] is necessary they take over prescribing Pancreatitis ([facility]) 09/17/2023 COPD exacerbation 09/17/2023 Assessment [...] 11:17 AM EDT): Open wounds refer to [facility] Wound Care Pulmonary hypertension 09/17/2023 Assessment & Plan (01/26/2025 7:52 AM EDT): Has seen [facility] Cardiology Assessment & Plan (12/09/2024 7:23 AM EDT): Has seen [facility] Cardiology Assessment & Plan (11/15/2023 3:49 PM EDT): Saw [facility] Cardiology See notes Going to see Pulmonary Assessment & Plan (09/27/2023 1:03 PM EDT): Needs to wear her PAP I am also going to have her see [facility] Cardiology as well PAD (peripheral [...] spiriva Will trial breztri: #2 samples given [id number], exp 03/03, rinse mouth after use Give [...] PM EDT): Current meds: albuterol, duoneb, 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 Assessment & Plan (08/27/2024 7:30 AM EST): Current meds: albuterol, duoneb, 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 Assessment & Plan (01/17/2024 [...] lost script I did contact [facility] [place], they will get another fill on this [...] of the risks of continued smoking: stroke, MD, all forms of cancer, lung disease, and [...] of the risks of continued smoking: stroke, MD, all forms of cancer, lung disease, and [...] Care Team Description 03/09/2025 Refill [facility] [address] [place] [address] Mckayla Blas NP Tobacco user; Encounter for smoking cessation counseling 02/27/2025 Refill [facility] [address] [place] [address] Amber Pinzon LPN Type 2 diabetes mellitus with other circulatory complications (HCC) 02/26/2025 Refill [facility] [address] [place] [address] Rain Odonnell MD Type 2 diabetes mellitus with other circulatory complications (HCC) 02/18/2025 Abstract [facility] [address] [place] [address] Mckayla Blas NP 02/14/2025 Refill [facility] [address] [place] [address] Rain Odonnell MD Type 2 diabetes mellitus with hyperglycemia, with long-term current use of insulin (HCC) 01/29/2025 9:40 AM EDT Office Visit [facility] [address] [place] [address] Rain Odonnell MD Encounter for dietary consultation (Primary Dx); Type 2 diabetes mellitus with hyperglycemia, with long-term current use of insulin (HCC); Vitamin D deficiency; Primary hypertension ; Insulin long-term use (HCC); Hyperlipemia, mixed ; Microalbuminuria; Class 3 severe obesity due to excess calories with serious comorbidity and body mass index (BMI) of 50.0 to 59.9 in adult ([facility]) 01/29/2025 Clinisync Result Encounter [facility] External Department Unsolicited Provider, Generic External Data 01/29/2025 Bamboo flowsheet [facility] [address] [place] [address] Rain Odonnell MD 01/26/2025 6:00 PM EDT Office Visit [facility] [address] [facility] [place] [place] [address] Mckayla Blas NP Encounter for subsequent annual wellness visit (AWV) in Medicare patient (Primary Dx); Mixed hyperlipidemia ; Type 2 diabetes mellitus with complication, with long-term current use of insulin (HCC); Bilateral lower extremity edema; Gastro-esophageal reflux disease without esophagitis; Chronic diastolic heart failure (HCC); Primary hypertension ; Pulmonary hypertension (HCC); Diabetic polyneuropathy associated with type 2 diabetes mellitus ([facility]); Pulmonary emphysema, unspecified emphysema type ([facility]); Moderate persistent asthma without complication ([facility]); Insomnia; Non-seasonal allergic rhinitis, unspecified trigger; Type 2 diabetes mellitus with unspecified complications (HCC); Anxiety and depression ; Antibiotic-induced yeast infection; Chronic obstructive pulmonary disease, unspecified ([facility]); Hyperlipidemia, unspecified ; Vaginal yeast infection; Morbid (severe) obesity due to excess calories ([facility]) 01/26/2025 Bamboo flowsheet [facility] [address] [facility] [address] [facility] [place] [address] Mckayla Blas NP from Last 3 Months Immunizations Immunization Administration Dates Next Due Influenza Whole 05/02/2013 Influenza, [id number] 04/16/2017,05/10/2016 Influenza, Unspecified 05/18/2023,04/16/2017,08/2015 Influenza, injectable, quadrivalent [...] week 08/26/2024 How often do you attend [facility] or synagogue services? More than 4 times [...] Recorded Patient Health Questionnaire-2 Score 0 01/26/2025 [facility] of Occupat [...] time in the past 12 m [facility], were you homeless or living in [...] [facility] [address] [place] [address] Rain Odonnell MD [address] [place] [address] Health Maintenance Due Date Last Done Comments CT Colonography 1970 Colonoscopy 1970 FIT 1970 FOBT 1970 Sigmoidoscopy 1970 HPV/Cotest 2000 Pap Smear 10/07/2018 10/08/2015, 10/08/2015 Mammogram 12/13/2024 12/14/2023, 12/14/2023, 11/06 Influenza Vaccine (#1) 2025 3, 05/18/2023, 04/16/2017, Additional history exists Colorectal Cancer [...] EDT Narrative 01/29/2025 6:40 [place] [address] Cardiology Report Signed Patient: SINA MACIAS MR#: [id number] : 1970 Acct:[id number] Age/Sex: 54 / F ADM Date: 01/29/25 Loc: CARD Attending Dr: AMI ORO APRN Ordering Physician: AMI ORO APRN Date of Service: 01/29/25 Procedure(s): CA echo doppler complete Accession Number(s): [id number] cc: Mckayla Blas NP; AMI ORO APRN Patient Name: SINA MACIAS MR#: [id number] : 1970 Exam Date: 01/29/2025 Ordering Doctor: AMI ORO NURSING SERVICES MANAGER ECHOCARDIOGRAM REPORT PROCEDURE: CA ECHO DOPPLER [...] HERRERA Signed By: 01/29/251839 DD/ 39 TD/TT: Ambulatory Service Representative: Procedure Note Radiology, Radiologist, MD - 01/29/2025 [place] [address] Cardiology Report Signed Patient: SINA MACIAS LMR#: [id number] : 1970Acct:[id number] Age/Sex: 54 / FADM Date: 01/29/25 Loc: CARD Attending Dr: AMI ORO APRN Ordering Physician: AMI ORO APRN Date of Service: 01/29/25 Procedure(s): CA echo doppler complete Accession Number(s): [id number] cc: Mckayla Blas ROUTE SALES ASSOCIATE; AMI ORO APRN Patient Name: SINA MACIAS MR#: [id number] : 1970 Exam Date: 01/29/2025 Ordering Doctor: AMI ORO [facility] ECHOCARDIOGRAM REPORT PROCEDURE: CA ECHO DOPPLER [...] at 18:40 Dictated By: BHARAT HERRERA Signed By:01/29/25 1839 DD/ 39 TD/TT: Ambulatory Service Representative: Generic External Data Provider [facility] Final Result * (ABNORMAL) POCT glycosylated hemoglobin (Hb A1C) docked device (01/29/2025 9:57 AM EDT) Hemoglobin A1C 8.4 Blood Venous blood specimen / Unknown 01/29/2025 9:57 AM EDT Result [facility] Rain Odonnell MD POINT OF CARE TEST ENTER/EDIT ORDERABLES Final Result * (ABNORMAL) POCT glucose manually resulted (01/29/2025 9:57 AM EDT) Glucose Blood, POC 121 mg/dL Blood Capillary blood specimen / Unknown 01/29/2025 9:57 AM EDT Result [facility] Rain Odonnell MD POINT OF CARE TEST ENTER/EDIT ORDERABLES Final Result * MM TOMOSYNTHESIS SCREENING BI (12/14/2023 11:21 AM EDT) Anatomical Region Laterality Modality Other 12/14/2023 11:2 1 AM EDT Narrative 12/14/2023 11:22 [place] [address] Mammography Report Signed Patient: SINA MACIAS MR#: [id number] : 1970 Acct:[id number] Age/Sex: 53 / F ADM Date: 12/13/23 Loc: MAMMO Attending Dr: Mckayla Blas NP Ordering Physician: Mckayla Blas NP Results: Date of Service: 12/13/23 Follow Up: Procedure(s): MM tomosynthesis screening BI Accession Number(s): [id number] cc: Mckayla Blas NP Patient Name: SINA MACIAS MR#: [id number] : 1970 Exam Date: 12/13/2023 Ordering Doctor: SAYDA Blas NURSING SERVICES MANAGER RADIOLOGY REPORT PROCEDURE: MM TOMOSYNTHESIS SCREENING [...] unknown cancer at age 75. LOCATION: [facility] BREAST COMPOSITION: The breasts are [...] Signed By: 12/14/23 1122 DD/ 1121 TD/TT: Ambulatory Service Representative: Procedure Note Radiology, Radiologist, MD - 12/14/2023 [place] [address] Mammography Report Signed Patient: SINA MACIAS LMR#: [id number] : 1970Acct:[id number] Age/Sex: 53 / FADM Date: 12/13/23 Loc: MAMMO Attending Dr: Mckayla Blas ROUTE SALES ASSOCIATE Ordering Physician: Mckayla Blas NPResults: Date of Service: 12/13/23Follow Up: Procedure(s): MM tomosynthesis screening BI Accession Number(s): [id number] cc: Mckayla Blas NP Patient Name: SINA MACIAS MR#: [id number] : 1970 Exam Date: 12/13/2023 Ordering Doctor: [...] unknown cancer at age 75. LOCATION: [facility] BREAST COMPOSITION: The breasts are [...] M.D. Signed By:12/14/23 1122 DD/ 1121 TD/TT: Ambulatory Service Representative: Mckayla Blas NP [facility] Final Result from Last 3 Months or Most Recently Relevant to Health Maintenance Insurance [employer] MEDICARE Care Teams Agronomy Manager Relationship Specialty Start Date End Date Ty Amin MD PCP - General Family Medicine 09/20/23 Mckayla Blas NP Nurse Practitioner Family Medicine 09/20/23
--- OUTSIDE RECORDS SUMMARY | 2025-04-27 13:26 | XMS_ITS | Encounter Summary ---
Author Organization [facility] Address [address] [place] [address] Care Team Providers Care Change Number Operator Name Role Phone Ty Amin MD Primary Care Provider [phone] Mckayla Blas STEAK SAUCE MAKER Unavailable [phone] Mckayla Blas NP Unavailable [phone] Encounter Details Date Type Department Care Team (Late st Contact Info) Description 01/07/2025 Abstract [facility] [address] [place] [address] Mckayla Blas NP [address] [facility] [place] [address] Social History Tobacco Use Types Packs/Day Years [...] Recorded Patient Health Questionnaire-2 Score 1 01/17/2024 [facility] [place] of Occupat ional Health - Occupational Stress [...] time in the past 12 m [facility], were you homeless or living [...] Endocrinology [address] [place] [address] Rain Souza MD [address] [place] [address] documented as of this encounter Visit Diagnoses Not on filedocumented in this encounter Additional Health Concerns Assessment Noted Time PHQ-9 Depression Total Score: 3 01/17/20 24 10:08 AM EDT documented as of this encounter Care Teams Change Number Operator Relationship Specialty Start Date End Date Ty Amin MD PCP - General Family Medicine 09/20/23 Mckayla Blas NP [address] [place] [address] PCP - [facility] 09/07/23 01/11/25 Mckayla Blas NP Nurse Practitioner Family Medicine 09/20/23 documented as of this encounter
--- OUTSIDE RECORDS SUMMARY | 2025-04-27 13:26 | XMS_ITS | Encounter Summary ---
Author Organization [facility] Address [address] [place] [address] Care Team Providers Care Supervisor Estimator And Drafter Name Role Phone Ty Amin MD Primary Care Provider [phone] Mckayla Blas INTEGRATION PROJECT MANAGER Unavailable [phone] Mckayla Blas NP Unavailable [phone] Encounter Details Date Type Department Care Team (Late st Contact Info) Description 12/14/2023 Clinisync Result Encounter [facility] External Department Unsolicited Mckayla Blas NP [address] [place] [address] Social History Tobacco Use Types Packs/Day Years [...] Recorded Patient Health Questionnaire-2 Score 0 11/01/2023 [facility] [...] Endocrinology [address] [place] [address] Rain Souza MD [address] [place] [address] documented as of this encounter Procedures Procedure Name Priority Date/Time Associated Diagnosis Comments MM TOMOSYNTHESIS SCREENING BI 12/14/2023 11:21 AM EDT documented in this encounter Results * MM TOMOSYNTHESIS SCREENING BI (12/14/2023 11:21 AM EDT) Anatomical Region Laterality Modality Other 12/14/2023 11:2 1 AM EDT Narrative 12/14/2023 11:22 AM EDT The [address] [address] Mammography Report Signed Patient: MITZI MACIAS MR#: [id number] : 1970 Acct:[id number] Age/Sex: 53 / F ADM Date: 12/13/23 Loc: MAMMO Attending Dr: Mckayla Blas NP Ordering Physician: Mckayla Blas NP Results: Date of Service: 12/13/23 Follow Up: Procedure(s): MM tomosynthesis screening BI Accession Number(s): [id number] cc: Mckayla Blas NP Patient Name: MITZI MACIAS MR#: [id number] : 1970 Exam Date: 12/13/2023 Ordering Doctor: [...] unknown cancer at age 75. LOCATION: The [facility] BREAST COMPOSITION: The breasts are almost entirely [...] Signed By: 12/14/23 1122 DD/ 1121 TD/TT: Auxiliary Equipment Operator: Procedure Note Radiology, Radiologist, MD - 12/14/2023 [place] [address] Mammography Report Signed Patient: MITZI MACIAS LMR#: [id number] : 1970Acct:[id number] Age/Sex: 53 / FADM Date: 12/13/23 Loc: MAMMO Attending Dr: Mckayla Blas INTEGRATION PROJECT MANAGER Ordering Physician: Mckayla Blas NPResults: Date of Service: 12/13/23Follow Up: Procedure(s): MM tomosynthesis screening BI Accession Number(s): [id number] cc: Mckayla Blas NP Patient Name: MITZI MACIAS MR#: [id number] : 1970 Exam Date: 12/13/2023 Ordering Doctor: SAYDA Blas LIFE SKILLS INSTRUCTOR RADIOLOGY REPORT PROCEDURE: MM TOMOSYNTHESIS SCREENING [...] unknown cancer at age 75. LOCATION: The [facility] BREAST COMPOSITION: The breasts are almost entirely [...] M.D. Signed By:12/14/23 1122 DD/ 1121 TD/TT: Auxiliary Equipment Operator: Mckayla Blas NP [facility] Final Result documented in this encounter Visit Diagnoses Not on filedocumented in this encounter Care Teams Supervisor Estimator And Drafter Relationship Specialty Start Date End Date Ty Amin MD PCP - General Family Medicine 09/20/23 Mckayla Blas NP [address] [place] [address] PCP - [facility] 09/07/23 01/11/25 Mckayla Blas NP Nurse Practitioner Family Medicine 09/20/23 documented as of this encounter
--- OUTSIDE RECORDS SUMMARY | 2025-04-27 13:26 | XMS_ITS | Encounter Summary ---
Author Organization [facility] Address [address] [place] [address] Care Team Providers Care Glass Melt Operator Name Role Phone Ty Amin MD Primary Care Provider [phone] Ty Amin MD Primary Care Provider [phone] Mckayla Blas EMERGENCY MEDICAL TECHNICIAN/DRIVER Unavailable [phone] Mckayla Blas EMERGENCY MEDICAL TECHNICIAN/DRIVER Unavailable [phone] Encounter Details Date Type Department Care Team (Late st Contact Info) Description 07/08/2023 Abstract [facility] [address] [place] [address] Mckayla Blas NP [address] [place] [address] Social History Tobacco Use Types Packs/Day Years [...] Patient Health Questionnaire-2 Score 2 07/10/2023 [facility] [...] Endocrinology [address] [place] [address] Rain Souza MD [address] [place] [address] documented as of this encounter Visit Diagnoses Not on filedocumented in this encounter Care Teams Glass Melt Operator Relationship Specialty Start Date End Date Ty Amin MD PCP - General Family Medicine 01/05/23 09/19/23 Ty Amin MD PCP - General Family Medicine 09/20/23 Mckayla Blas NP [address] [place] [address] PCP - [facility] 09/07/23 01/11/25 Mckayla Blas NP Nurse Practitioner Family Medicine 09/20/23 documented as of this encounter
--- OUTSIDE RECORDS SUMMARY | 2025-04-27 13:26 | XMS_ITS | Encounter Summary ---
Author Organization [facility] Address [address] [place] [address] Care Team Providers Care Emery Grinder Name Role Phone Ty Amin MD Primary Care Provider [phone] Mckayla Blas HEALTH COUNSELOR Unavailable [phone] Mckayla Blas HEALTH COUNSELOR Unavailable [phone] Reason for Visit * Reason Comments Med Refill Encounter Details Date Type Department Care Team (Late st Contact Info) Description 11/27/2023 Refill [facility] [address] [place] [address] Mckayla Blas NP [address] [facility] [place] [address] Chronic obstructive pulmonary disease, unspecified (HCC) Social [...] week 07/10/2023 How often do you attend [facility] or scientologist services? 1 to 4 times [...] Patient Health Questionnaire-2 Score 0 11/01/2023 [facility] [...] [facility] [address] [place] [address] Rain Souza MD [address] [place] [address] documented as of this encounter Visit Diagnoses Diagnosis Chronic obstructive pulmonary disease, unspecified (HCC) documented in this encounter Care Teams Emery Grinder Relationship Specialty Start Date End Date Ty Amin MD PCP - General Family Medicine 09/20/23 Mckayla Blas NP [address] [place] [address] PCP - [facility] 09/07/23 01/11/25 Mckayla Blas NP Nurse Practitioner Family Medicine 09/20/23 documented as of this encounter
--- OUTSIDE RECORDS SUMMARY | 2025-04-27 13:30 | XMS_ITS | CCD ---
Author Organization [facility] Care Team Providers Care Office Supervisor Name Role Phone aJmes Benavidez Primary Care Provider JAMES BENAVIDEZ Primary Care Unavailable SHENDGE, VITHAL Admitting Unavailable SHENDGE, VITHAL Attending Unavailable AICHHOLZ, MCKAYLA Primary Care Unavailable AICHHOLZ, MCKAYLA Referring Unavailable AICHHOLZ, MCKAYLA J Primary Care Physician [phone] Tico, Stephanie Unavailable OLE RAMIREZ Attending Unavailable OLE RAMIREZ Consulting Unavailable AICHHOLZ, HEEL FORMER MCKAYLA Primary Care Unavailable OLE RAMIREZ Admitting Unavailable ANTONY SHRESTHA Consulting Unavailable ALONDRA ., UMBERTO Admitting Unavailable ALONDRA ., UMBERTO Attending Unavailable AICHHOLZ, HEEL FORMER MCKAYLA Primary Care Unavailable AFSANEH Loera, DR BOLANOS Consulting Unavailable MARYANNE POWER Consulting Unavailable GLENN KERR Consulting Unavailable YOMAIRA KERR Consulting Unavailable HATTIE GOFF Consulting Unavailable ALONDRA ., UMBERTO Consulting Unavailable TICO, STEPHANIE Attending Unavailable TICO, STEPHANIE Consulting Unavailable AICHHOLZ, HEEL FORMER MCKAYLA Primary Care Unavailable TICO, STEPHANIE Admitting Unavailable REGLA ., DR DUMONT Admitting Unavailable AICHHOLZ, HEEL FORMER MCKAYLA Primary Care Unavailable REGLA ., DR DUMONT Attending Unavailable ARAUZ ., DR DUMONT Consulting Unavailable COLLIN HUERTAS Consulting Unavailable CECILIA KAUFMAN Admitting Unavailable CECILIA KAUFMAN Attending Unavailable AICHHOLZ, HEEL FORMER MCKAYLA Primary Care Unavailable RAFAEL GONGORA Attending Unavailable RAFAEL GONGORA Admitting Unavailable AICHHOLZ, HEEL FORMER MCKAYLA Primary Care Unavailable AICHHOLZ, HEEL FORMER MCKAYLA Admitting Unavailable AICHHOLZ, HEEL FORMER MCKAYLA Primary Care Unavailable AICHHOLZ, HEEL FORMER MCKAYLA Attending Unavailable AICHHOLZ, HEEL FORMER MCKAYLA Consulting Unavailable LAKSHMIPATHY ., NARENDRANATH Attending Anette vailable LAKSHMIPATHY ., NARENDRANATH Consulting Anette vailable LAKSHMIPATHY ., NARENDRANATH Admitting Anette vailable AICHHOLZ, HEEL FORMER MCKAYLA Primary Care Unavailable VALENZUELA ., GIL Consulting Unavailable MORTENSEN ., DR CHAPARRO Aguillon Attending Unavailable MORTENSEN ., DR CHAPARRO Aguillon Admitting Unavailable AICHHOLZ, HEEL FORMER MCKAYLA Primary Care Unavailable VALENZUELA ., GIL Consulting Unavailable MORTENSEN ., DR CHAPARRO Aguillon Admitting Unavailable AICHHOLZ, HEEL FORMER MCKAYLA Primary Care Unavailable MORTENSEN ., DR CHAPARRO Aguillon Attending Unavailable HALKER ., SUBHASH Consulting Unavailable LAKSHMIPATHY ., NARENDRANATH Admitting Anette vailable LAKSHMIPATHY ., NARENDRANATH Attending Anette vailable AICHHOLZ, HEEL FORMER MCKAYLA Primary Care Unavailable MORTENSEN ., DR CHAPARRO Aguillon Attending Unavailable MORTENSEN ., DR CHAPARRO Aguillon Admitting Unavailable VALENZUELA ., GIL Consulting Unavailable AICHHOLZ, HEEL FORMER MCKAYLA Primary Care Unavailable VALENZUELA ., GIL Consulting Unavailable MORTENSEN ., DR CHAPARRO Aguillon Attending Unavailable MORTENSEN ., DR CHAPARRO Agulilon Admitting Unavailable AICHHOLZ, HEEL FORMER MCKAYLA Primary Care Unavailable HATTIE BRODERICK Attending Unavailable HATTIE BRODERICK Admitting Unavailable AICHHOLZ, HEEL FORMER MCKAYLA Primary Care Unavailable AICHHOLZ, HEEL FORMER MCKAYLA Admitting Unavailable AICHHOLZ, HEEL FORMER MCKAYLA Consulting Unavailable AICHHOLZ, HEEL FORMER MCKAYLA Primary Care Unavailable AICHHOLZ, HEEL FORMER MCKAYLA Attending Unavailable AICHHOLZ, HEEL FORMER MCKAYLA Primary Care Unavailable MISC, DR LESLIE Admitting Unavailable MISC, DR LESLIE Attending Unavailable MISC, DR LESLIE Consulting Unavailable DIAB ., MARIANO Admitting Unavailable DIAB ., MARIANO Attending Unavailable DIAB ., MARIANO Consulting Unavailable AICHHOLZ, HEEL FORMER MCKAYLA Primary Care Unavailable RASTEGAR, RICCO Consulting Unavailable AICHHOLZ, HEEL FORMER MCKAYLA Admitting Unavailable AICHHOLZ, HEEL FORMER MCKAYLA Primary Care Unavailable AICHHOLZ, HEEL FORMER MCKAYLA Attending Unavailable AICHHOLZ, HEEL FORMER MCKAYLA Consulting Unavailable DR PATRICIA VELOZ Consulting Unavailable TAMLYN ., CECILIA Attending Unavailable TAMLYN ., CECILIA Admitting Unavailable DR PATRICIA VELOZ Consulting Unavailable AICHHOLZ, HEEL FORMER MCKAYLA Primary Care Unavailable TAMLYN ., CECILIA Consulting Unavailable MORTENSEN ., DR CHAPARRO Aguillon Attending Unavailable FESTUS ., DR CHAPARRO Aguillon Consulting Unavailable FESTUS ., DR CHAPARRO Aguillon Admitting Unavailable AICHHOLZ, HEEL FORMER MCKAYLA Primary Care Unavailable HATTIE BRODERICK Attending Unavailable HATTIE BRODERICK Consulting Unavailable HATTIE BRODERICK Admitting Unavailable AICHHOLZ, HEEL FORMER MCKAYLA Primary Care Unavailable HATTIE BAUTISTA Unavailable AICHHOLZ, HEEL FORMER MCKAYLA Admitting Unavailable AICHHOLZ, HEEL FORMER MCKAYLA Attending Unavailable AICHHOLZ, HEEL FORMER MCKAYLA Consulting Unavailable AICHHOLZ, HEEL FORMER MCKAYLA Primary Care Unavailable Brennan PHIPPS, Ty Primary Care Provider Brennan PHIPPS, Ty Primary Care Provider [phone] Aichholz TOP STITCHER, Mckayla Unavailable Aichholz TOP STITCHER, Mckayla Unavailable Elbert ARAUZ Attending Unavailable SARAH VEGA Attending Unavailable AICHHOLZ, MCKAYLA Attending Unavailable LIBBYRAIN GIANG F Attending Unavailable AICHHOLZ, MCKAYLA Attending Unavailable AICHHOLZ, MCKAYLA Attending Unavailable AICHHOLZ, MCKAYLA Attending Unavailable LIBBY, AHMAD F Attending Unavailable AICHHOLZ, MCKAYLA Attending Unavailable LIBBY, AHMAD F Attending Unavailable LIBBY, AHMAD F Referring Unavailable AICHHOLZ, MCKAYLA Attending Unavailable Aichholz TOP STITCHER, Mckayla Unavailable Aichholz TOP STITCHER-C, Mckayla J Primary Care Provider [phone] Price Arora DO Attending Provider Adonay DPM, Flynn Rice Attending Provider Aichholz TOP STITCHER-C, Mckayla Krystal Attending Provider [phone] [facility]O Attending Unavailable DAKOTAH BRIDGES Attending Unavailable Adonay CHAU, Flynn Arzate Attending Unavailab Omero Davis Attending Unavailable Adonay CHAU, Flynn Arzate Referring Unavailab lolita Kellogg MD, Corinne Ghosh Attending Unavail able Aichholz SALES ENGINEER ACCOUNT MANAGER-HEEL FORMER, Mckayla Citlalli Primary Care Unava ilable Omero Rojas Consulting Unavailable Omero Rojas Attending Unavailable Flynn Urias DPM Attending UnavailOmero Chapin Attending Unavailable Wan SAVAGE-HEEL FORMER, Mckayla Lennon Primary Care Unava ilable Allergies Allergy Classification Reported Allergen(s) Allergy Type Date of Onset Reaction(s) Facility (1 source) No Known Medication Allergies; Translations: [No Known Medication Allergies] Propensity to adverse reactions (disorder) [facility] Repository Medications Current Medications Medication Drug [...] tablet by mouth every four hours Hydrocodone-Acetaminophen (Shandon) 5-325 mg tablet Discontinued 1 TAB PO Q4H December 13, 2017 April 05, 2025 12:52pm Start: 12-13-2017 take 1 tablet by vandana th every four to six hours as needed for pain HYDROcodone-acet aminophen (Shandon) 5-325 MG tablet 1 tablet 3 (three) times a day as needed for severe pain. Active take 1 tablet by vandana th twice daily as needed Shandon 5-325 MG 1 tablet as needed Orally [...] every week ergocalciferol (Vitamin D2) 1.25 MG (16868 UT) capsule Indications: Vitamin D deficiency, unspecified Take 1 capsule (1.25 mg) by mouth 1 (one) time per week 12 capsule 1 01/16/2025 04/10/2025 Active Start: 10-27-2024 End: 01-19-2025 take 1 capsule by mouth two times weekly ergocalciferol (Vitamin D2) 1.25 MG (28125 UT) capsule Indications: Vitamin D deficiency, unspecified Take 1 capsule (1.25 mg) by mouth 2 (two) times a week 24 capsule 1 10/27/2024 01/19/2025 Active Start: 04-06-2024 End: 10-27-2024 take 1 capsule by mouth every week ergocalciferol (Vitamin D2) 1.25 MG (08373 UT) capsule Indications: Vitamin D deficiency, unspecified [...] 02/06/22 Status: Ordered take 1 tablet by [facility] every twenty-four hours Meloxicam 7.5 [...] 2025 12:56pm take 1 tablet by vandana every twenty-four hours Potassium Chloride ER 10 [...] Start: 08-13-2024 take 1 capsule by mo [facility] once daily pregabalin (Lyrica) 150 MG capsule [...] 02-06-2022 Chronic Other aftercare (1 source) Other alf (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 therapy; Translations: [OTH SENIOR CARE CURRENT DRUG THERAPY] Onset: 3 Episodic Other aftercare (1 source) watermaster (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; Translations: [STRIP CATCHER CURRENT USE OF ASPIRIN] Onset: 3 Episodic Other aftercare (6 sources) Long-term current use of insulin; Translations: [jail (current) use of insulin] 05-27-2024 Episodic Other aftercare (20 sources) Long-term current use of inhaled steroid; Translations: [jail (current) use of inhaled steroids] Onset: 5 [...] source) SENIOR CARE INJECT NONINSULN ANTIDIAB; Translations: [STRIP CATCHER INJECT NONINSULN ANTIDIAB] Onset: 3 Unclassified (3 [...] Onset: 12-05-2022 01-17-2024 Other aftercare (3 sources) jail (current) use of insulin; Translations: [SENIOR CARE [...] Reference Range Facility Vascular Office/Clinic Noteo n 04-23-2025 Vascular Office/Clinic Note Chief Complaint Leg ulcer History of Present Illness Mitzi was referred by her tv host for evaluation of PVD. She has had ulcers in the bilateral lower extremities above the ankle for about a year. She has been seen by wound care in [facility]. They are applying compression with medicated wraps. She states that the ulcers are getting better. She was then referred to podiatry. She is morbidly obese. No claudication or rest pain. Physical Exam Vitals & Measurements HR: 71 (Peripheral) BP: 144/70 SpO2: 93% HT: 170 cm WT: 167.82 kg WT: 167.82 kg (Dosing) BMI: 58.07 GENERAL: Alert and oriented HENT: Normocephalic NECK: No bruits LUNGS: Clear to auscultation HEART: Normal rate, regular rhythm ABDOMEN: Soft, non-tender, non-distended, normal bowel sounds, no masses, obese NEURO: Awake, alert, and oriented x3 VASCULAR: Difficult to palpate femoral pulses. Absent pedal pulses. Additional Vitals BP Position/Location: Sitting, Left arm Assessment and Plan: 1. Venous stasis ulcers of both lower extremities Patient has some PVD. The Doppler shows moderate arterial sufficiency in the bilateral extremities. However, the ulcerations are venous stasis ulcers and not arterial ulcers. These should heal with compression and leg elevation. I explained to the patient that although she has some arterial insufficiency, it is enough to heal the leg ulcers because they are venous in nature. I instructed her to keep her feet moist instead of dry. If she ever develops ulcers on her feet, intervention will be difficult due to her morbidly obese body habitus. No need for any intervention at this time. Follow-up as needed Problem List/Past Medical History Ongoing No qualifying [...] NEEDED (EDEMA) TAKE IN THE AFTERNOON NEEDED furosemide 40 mg oral tablet, 40 mg= 1 tabs, Oral, Daily Lantus Solostar Pen 100 units/mL subcutaneous solution, [...] MOUTH DAILY, DO NOT FILL UNTIL 02/13/25 pregabalin 300 mg oral capsule, 300 mg= 1 caps, Oral, BID Allergies No active allergies Social History Tobacco 10 or more cigarettes (1/2 pack or more)/day in last 30 days Use:. Cigarettes, 0.5 per day. Packs Electronically signed by Corinne Kellogg MD 04/23/25 11:56 EDT [facility] VL Ankle Brachial Indiceson 04-17-2025 Ankle Brachial Indices Preliminary Technologist Report Ankle/brachial index study was performed. Please see below for information. English Composition Teacher: FRITZ Isbell Radiologist Report BILATERAL LOWER EXTREMITY ISABELLE STUDY [...] please contact our Vascular Rehabilitation Department at [phone]. Final Signed by: Jose F Casanova MD Signed (Electronic Signature): 04.17.2025 3:28 pm Transcribed by: Jose F Casanova MD Transcribed DT/TM: 04.17.2025 3:12 (If Report is Signed, Electronically Signed in Other Vendor System) Normal [facility] Basophils Auto (Bld) [#/Vol] Ordered By: Flynn Urias on 03-26-2025 Basophils (Bld) [#/Vol] 0.1 10 3/uL 0.0-0.1 [facility] Basophils/100 WBC Auto (Bld) Ordered By: Flynn Urias on 03-26-2025 Basophils/100 WBC (Bld) 0.6 % 0.2-2.0 F [facility] Eosinophils/100 WBC Auto (Bl d)Ordered By: Flynn Urias on 03-26-2025 Eosinophils/100 WBC (Bld) 2.7 % 0.9-7.0 [facility] Erythrocyte distribution wid th Auto (RBC) [Ratio]Ordered By: Flynn Urias on 03-26-2025 Erythrocyte distribution width (RBC) [Ratio] 16.4 % High 11.0-15.0 [facility] Glomerular filtration rate ( GFR) estimation in non- AmericanOrdered By: Flynn Urias on 03-26-2025 GFR/1.73 sq M.predicted among non-blacks MDRD (S/P/Bld) [Vol rate/Area] mL/min/{1.73_m2} >=60 mL/min/1.73m 2 [facility] Hematocrit Auto (Bld) [Volum e fraction]Ordered By: Flynn Urias on 03-26-2025 Hematocrit (Bld) [Volume fraction] 52.5 % High 36.0-48.0 [facility] Hemoglobin [Mass/volume] in BloodOrdered By: Flynn Urias on 03-26-2025 Hemoglobin (Bld) [Mass/Vol] 16.1 g/dL High 12.0-16.0 [facility] Laboratory - Chemistry and C hemistry - challengeOrdered By: Flynn Urias on 03-26-2025 Albumin [Mass/Vol] 2.8 g/dL Low 3.4-5.0 [facility] Calcium [Mass/Vol] 8.6 mg/dL 8.5-10.1 [facility] Chloride [Moles/Vol] 105 mmol/L 98-107 [facility] CO2 [Moles/Vol] 31.5 mmol/L 21.0-32.0 [facility] Creatinine [Mass/Vol] 0.69 mg/dL 0.55-1.02 [facility] GFR/1.73 sq M.predicted MDRD (S/P/Bld) [Vol rate/Area] mL/min/{1.73_m2} >=60 mL/min/1.73m 2 [facility] Glucose [Mass/Vol] 147 mg/dL High 74-106 [facility] Potassium [Moles/Vol] 4.2 mmol/L 3.5-5.1 [facility] Sodium [Moles/Vol] 141 mmol/L 136-145 [facility] Urea nitrogen [Mass/Vol] 15.0 mg/dL 7.0-18.0 [facility] Urea nitrogen/Creatinine [Mass ratio] 21.7 mg/mg [facility] Laboratory - Hematology and Cell countsOrdered By: Flynn Urias on 03-26-2025 ESR (Bld) [Velocity] 48 mm/h High <=30 [facility] Immature granulocytes/100 WBC (Bld) 0.3 % 0.0-0.5 [facility] Leukocytes [#/volume] correc bakari for nucleated erythrocytes in Blood by Automated counOrdered By: Flynn Urias on 03-26-2025 WBC corrected for nucl RBC Auto (Bld) [#/Vol] 10.0 10 3/uL 4.0-11.0 [facility] Lymphocytes Auto (Bld) [#/Vo l]Ordered By: Flynn Urias on 03-26-2025 Lymphocytes (Bld) [#/Vol] 2.7 10 3/uL 1.2-3.8 [facility] Lymphocytes/100 WBC Auto (Bl d)Ordered By: Flynn Urias on 03-26-2025 Lymphocytes/100 WBC (Bld) 27.2 % 20.5-60.0 [facility] MCH Auto (RBC) [Entitic mass ]Ordered By: Flynn Urias on 03-26-2025 MCH (RBC) [Entitic mass] 27.2 pg 26.7-34.0 [facility] MCHC Auto (RBC) [Mass/Vol]Or dered By: Flynn Urias on 03-26-2025 MCHC (RBC) [Mass/Vol] 30.7 g/dL 29.9-35.2 [facility] MCV Auto (RBC) [Entitic vol] Ordered By: Flynn Urias on 03-26-2025 MCV (RBC) [Entitic vol] 88.7 fL 81.0-99.0 [facility] Monocytes Auto (Bld) [#/Vol] Ordered By: Flynn Urias on 03-26-2025 Monocytes (Bld) [#/Vol] 0.5 10 3/uL 0.3-0.8 [facility] Monocytes/100 WBC Auto (Bld) Ordered By: Flynn Urias on 03-26-2025 Monocytes/100 WBC (Bld) 5.2 % 1.7-12.0 F [facility] Neutrophils Auto (Bld) [#/Vo l]Ordered By: Flynn Urias on 03-26-2025 Neutrophils (Bld) [#/Vol] 6.4 10 3/uL 1.4-6.5 [facility] Neutrophils/100 WBC Auto (Bl d)Ordered By: Flynn Urias on 03-26-2025 Neutrophils/100 WBC (Bld) 64.0 % 43.0-75.0 [facility] No Panel InformationOrdered By: Flynn Urias on 03-26-2025 C-Reactive Protein, Quantitative 3.94 mg/dL High <=0.50 [facility] Eosinophils # (Auto) 0.3 10 3/uL 0.0-0.7 [facility] Immature Granulocyte # (Auto) 0.03 10 3/uL 0.00-0.03 [facility] Phosphorus Level 3.5 mg/dL 2.6-4.7 [facility] Platelet mean volume Auto (B ld) [Entitic vol]Ordered By: Flynn Urias on 03-26-2025 Platelet mean volume (Bld) [Entitic vol] 12.8 fL 9.5-13.5 [facility] Platelets Auto (Bld) [#/Vol] Ordered By: Flynn Urias on 03-26-2025 Platelets (Bld) [#/Vol] 146 10 3/uL Low 150-450 [facility] RBC Auto (Bld) [#/Vol]Ordere d By: Flynn Urias on 03-26-2025 RBC (Bld) [#/Vol] 5.92 10 6/uL High 4.20-5.40 [facility] Serum or plasma anion gap de terminationOrdered By: Flynn Urias on 03-26-2025 Anion gap [Moles/Vol] 8.7 mmol/L [facility] Basophils Auto (Bld) [#/Vol] Ordered By: Price Arora on 03-25-2025 Basophils (Bld) [#/Vol] 0.1 10 3/uL 0.0-0.1 [facility] Basophils/100 WBC Auto (Bld) Ordered By: Price Arora on 03-25-2025 Basophils/100 WBC (Bld) 0.4 % 0.2-2.0 [facility] Eosinophils/100 WBC Auto (Bl d)Ordered By: Price Arora on 03-25-2025 Eosinophils/100 WBC (Bld) 2.4 % 0.9-7.0 [facility] Erythrocyte distribution wid th Auto (RBC) [Ratio]Ordered By: Price Arora on 03-25-2025 Erythrocyte distribution width (RBC) [Ratio] 16.4 % High 11.0-15.0 [facility] Glomerular filtration rate ( GFR) estimation in non- AmericanOrdered By: Price Arora on 03-25-2025 GFR/1.73 sq M.predicted among non-blacks MDRD (S/P/Bld) [Vol rate/Area] mL/min/{1.73_m2} >=60 mL/min/1.73m 2 [facility] Hematocrit Auto (Bld) [Volum e fraction]Ordered By: Price Arora on 03-25-2025 Hematocrit (Bld) [Volume fraction] 56.6 % High 36.0-48.0 [facility] Hemoglobin [Mass/volume] in BloodOrdered By: Price Arora on 03-25-2025 Hemoglobin (Bld) [Mass/Vol] 17.4 g/dL High 12.0-16.0 [facility] Laboratory - Chemistry and C hemistry - challengeOrdered By: Price Arora on 03-25-2025 Bilirubin Ql (U) Negative NEGATIVE [facility] Glucose (U) [Mass/Vol] Negative NEGATIVE [facility] Ketones Ql (U) Negative NEGATIVE [facility] pH (U) 8.0 [pH] 5.0-9.0 [facility] Specific gravity (U) [Rel density] 1.020 1.005-1.025 [facility] Urobilinogen Qn (U) 1.0 {Little'U}/dL 0.2-1.0 [facility] Calcium [Mass/Vol] 9.2 mg/dL 8.5-10.1 [facility] Chloride [Moles/Vol] 106 mmol/L 98-107 [facility] CO2 [Moles/Vol] 36.9 mmol/L High 21.0-32.0 [facility] Creatinine [Mass/Vol] 0.86 mg/dL 0.55-1.02 [facility] GFR/1.73 sq M.predicted MDRD (S/P/Bld) [Vol rate/Area] mL/min/{1.73_m2} >=60 mL/min/1.73m 2 [facility] Glucose [Mass/Vol] 164 mg/dL High 74-106 [facility] Potassium [Moles/Vol] 4.0 mmol/L 3.5-5.1 [facility] Sodium [Moles/Vol] 144 mmol/L 136-145 [facility] Urea nitrogen [Mass/Vol] 14.0 mg/dL 7.0-18.0 [facility] Urea nitrogen/Creatinine [Mass ratio] 16.3 mg/mg [facility] Laboratory - Hematology and Cell countsOrdered By: Price Arora on 03-25-2025 Immature granulocytes/100 WBC (Bld) 0.3 % 0.0-0.5 [facility] Laboratory - Specimen inform ationOrdered By: Price Arora on 03-25-2025 Appearance (U) CLEAR CLEAR [facility] Color (U) LT. YELLOW YELLOW [facility] Laboratory - UrinalysisOrder ed By: Price Arora on 03-25-2025 Hyaline casts LM Ql (Urine sed) RARE [facility] Leukocyte esterase Test strip Ql (U) Negative NEGATIVE [facility] Mucus Ql (Urine sed) TRACE Abnormal NONE SEEN [facility] Nitrite Ql (U) Negative NEGATIVE [facility] Protein Ql (U) 100 mg/dL Abnormal NEG/TRACE [facility] Leukocytes [#/volume] correc bakari for nucleated erythrocytes in Blood by Automated counOrdered By: Price Arora on 03-25-2025 WBC corrected for nucl RBC Auto (Bld) [#/Vol] 11.8 10 3/uL High 4.0-11.0 [facility] Lymphocytes Auto (Bld) [#/Vo l]Ordered By: Price Arora on 03-25-2025 Lymphocytes (Bld) [#/Vol] 3.1 10 3/uL 1.2-3.8 [facility] Lymphocytes/100 WBC Auto (Bl d)Ordered By: Price Arora on 03-25-2025 Lymphocytes/100 WBC (Bld) 26.4 % 20.5-60.0 [facility] MCH Auto (RBC) [Entitic mass ]Ordered By: Price Arora on 03-25-2025 MCH (RBC) [Entitic mass] 27.5 pg 26.7-34.0 [facility] MCHC Auto (RBC) [Mass/Vol]Or dered By: Price Arora on 03-25-2025 MCHC (RBC) [Mass/Vol] 30.7 g/dL 29.9-35.2 [facility] MCV Auto (RBC) [Entitic vol] Ordered By: Price Arora on 03-25-2025 MCV (RBC) [Entitic vol] 89.4 fL 81.0-99.0 F [facility] Monocytes Auto (Bld) [#/Vol] Ordered By: Price Arora on 03-25-2025 Monocytes (Bld) [#/Vol] 0.6 10 3/uL 0.3-0.8 [facility] Monocytes/100 WBC Auto (Bld) Ordered By: Price Arora on 03-25-2025 Monocytes/100 WBC (Bld) 5.2 % 1.7-12.0 F [facility] Neutrophils Auto (Bld) [#/Vo l]Ordered By: Price Arora on 03-25-2025 Neutrophils (Bld) [#/Vol] 7.7 10 3/uL High 1.4-6.5 [facility] Neutrophils/100 WBC Auto (Bl d)Ordered By: Price Arora on 03-25-2025 Neutrophils/100 WBC (Bld) 65.3 % 43.0-75.0 [facility] No Panel InformationOrdered By: Price Arora on 03-25-2025 Urine Bacteria TRACE #/HPF Abnormal NONE SEEN [facility] Urine Culture Reflexed NO Fi relaFormerly [facility] Urine Occult Blood Negative NEGATIVE [facility] Urine Other Casts SEEN #/LPF Abnormal NONE SEEN [facility] Urine Other Crystals None Seen #/HPF None Seen [facility] Urine RBC 0-2 #/HPF 0-2 [facility] Urine Squamous Epithelial Cells FEW #/LPF Abnormal NONE/RARE [facility] Urine WBC 0-2 #/HPF Abnormal NONE SEEN [facility] Eosinophils # (Auto) 0.3 10 3/uL 0.0-0.7 [facility] Immature Granulocyte # (Auto) 0.04 10 3/uL High 0.00-0.03 [facility] Platelet mean volume Auto (B ld) [Entitic vol]Ordered By: Price Arora on 03-25-2025 Platelet mean volume (Bld) [Entitic vol] 12.4 fL 9.5-13.5 [facility] Platelets Auto (Bld) [#/Vol] Ordered By: Price Arora on 03-25-2025 Platelets (Bld) [#/Vol] 160 10 3/uL 150-450 [facility] RBC Auto (Bld) [#/Vol]Ordere d By: Price Arora on 03-25-2025 RBC (Bld) [#/Vol] 6.33 10 6/uL High 4.20-5.40 [facility] Serum or plasma anion gap de terminationOrdered By: Price Arora on 03-25-2025 Anion gap [Moles/Vol] 5.1 mmol/L [facility] Vascular Office/Clinic Noteo n 03-23-2025 Vascular [...] She has had testing done at the [facility] last year which she brought with [...] signed by Omero Santana 03/23/25 12:01 EDT Normal [facility] Podiatry Office/Clinic Noteo n 03-11-2025 Podiatry [...] wraps (gauze, tila bandage, Coban II, tuba radiosonde specialist), Dakins solution, a 40-day course of antibiotics, [...] other blood thinners. The patient resides in [place]. Review of Systems Constitutional: Negative for signs [...] (more content not included)... Normal [facility] Comment on above: Order Comment: Destiny ocampo Attachment [id number] Can be viewed in source system XR Tibia/Fibula Righton 090 XR Tibia/Fibula Right 2 views right tib-fib [...] Signed, Electronically Signed in Other Vendor System) [facility] Results Follow-Upon 02-05-20 Results Follow-Up [id number] Mitzi Macias 1970 F Date Provider Department Center 02/04/2025 166-[facility] CARDIOLOGY None Family History Problem Relation Age of Onset Heart attack Paternal Grandmother Family Status - Relation Status Age at Mother Father Paternal Grandmother Normal [facility] Orders Onlyon 01-30-2025 Orders Only [id number] Mitzi Macias 1970 F Date Provider Department Center 01/30/2025 [id number], [facility] Family History Problem Relation Age of Onset Heart attack Paternal Grandmother Family Status - Relation Status Age at Mother Father Paternal Grandmother [facility] CA ECHO DOPPLER COMPLETEon 0 01-29-2025 [place] [address] Cardiology Report Signed Patient: MITZI MACIAS MR#: [id number] : 1970 Acct:[id number] Age/Sex: 54 / F ADM Date: 01/29/25 Loc: CARD Attending Dr: AMI ORO APRN Ordering Physician: AMI ORO APRN Date of Service: 01/29/25 Procedure(s): CA echo doppler complete Accession Number(s): [id number] cc: Mckayla Blas TOP STITCHER; AMI ORO APRN Patient Name: MITZI MACIAS MR#: [id number] : 1970 Exam Date: 01/29/2025 Ordering Doctor: [...] HERRERA Signed By: 01/29/251839 DD/ 39 TD/TT: Quantitative Analyst Marketing: [facility] Radiology, Radiologist, MD - 01/29/2025 [place] [address] Cardiology Report Signed Patient: MITZI MACIAS MR#: [id number] : 1970 Acct:[id number] Age/Sex: 54 / F ADM Date: 01/29/25 Loc: CARD Attending Dr: AMI ORO APRN Ordering Physician: AMI ORO APRN Date of Service: 01/29/25 Procedure(s): CA echo doppler complete Accession Number(s): [id number] cc: Mckayla Blas TOP STITCHER; AMI ORO APRN Patient Name: MITZI MACIAS MR#: [id number] : 1970 Exam Date: 01/29/2025 Ordering Doctor: [...] HERRERA Signed By: 01/29/251839 DD/ 39 TD/TT: Quantitative Analyst Marketing: [facility] Radiology Study observation (narrative) [facility] CA ECHO DOPPLER COMPLETEOrde red By: Radiologist Radiology on 01-29-2025 [facility] Work Phone: Glucose (Bld) [Mass/Vol]on 0 01-29-2025 Glucose Blood, POC 121 mg/dL [facility] Laboratory - Hematology and Cell countson 01-29-2025 HbA1c (Bld) [Mass fraction] 8.4 % [facility] No Panel Informationon 01-29 Interpretation and review of laboratory results Abnormal [facility] Office Visiton 01-06-2025 Follow-up visit [id number] MaciasMitzi lee Gilberto 1970 F Date Provider Department Center 01/06/2025 AMI SARABIA Family History Problem Relation Age of Onset Heart attack Paternal Grandmother Family Status - Relation Status Age at Mother Father Paternal Grandmother Level of Service:63805 MO OFFICE/OUTPATIENT ESTABLISHED MOD MDM 30 MIN Reason for Visit and Comments: Congestive Heart Failure [127] Hypertension [974507] Hyperlipidemia [182] Normal [facility] 36on 10-21-2024 36 Regarding lab results from 10/08/2024: MD Mickie Merritt MA Lipids, ALT AST, and BMP are normal. HbA1c was not performed. Continue current management. LM on patient's VM. Normal [facility] Glucose (Bld) [Mass/Vol]Orde red By: Mica Sauceda on 10-08-2024 Glucose Blood, POC 97 mg/dL [facility] Laboratory - Hematology and Cell countson 10-08-2024 HbA1c (Bld) [Mass fraction] 7.4 % [facility] No Panel InformationOrdered By: Mica Sauceda on 10-08-2024 [facility] TBH UA (CLEAN/CATCH) MICROSC OPIC IF INDICATEon 10-08-2024 BILIRUBIN URINE Negative NEGATIVE [facility] BLOOD URINE Negative NEGATIVE [facility] Clarity (U) CLEAR CLEAR [facility] Color (U) YELLOW YELLOW [facility] GLUCOSE URINE UA Negative NEGATIVE mg/dL [facility] Interpretation and review of laboratory results Abnormal [facility] Ketones Ql (U) Negative NEGATIVE mg/dL [facility] Leukocyte esterase Test strip Ql (U) Negative NEGATIVE [facility] NITRITE URINE Negative NEGATIVE [facility] pH (U) 5.5 [pH] 5.0 - 9.0 [facility] Protein (U) [Mass/Vol] 30 mg/dL Abnormal NEG/TRACE NO [facility] SPECIFIC GRAVITY URINE >=1.030 Abnormal 1.005 - 1.025 [facility] URINE MICROSCOPIC INDICATED YES [facility] UROBILINOGEN URINE 1.0 EU/dL 0.2 - 1.0 EU/dL [facility] ALL CBC WITH AUTO DIFFon BASOPHILS ABSOLUTE AUTO 0.[address] [facility] Basophils/100 WBC (Bld) 0.5 % 0.2 - 2.0 % [facility] Eosinophils/100 WBC (Bld) 1.9 % 0.9 - 7.0 % [facility] Erythrocyte distribution width (RBC) [Ratio] 14.6 % 11.0 - 15.0 % [facility] Hematocrit (Bld) [Volume fraction] 50.9 % High 36.0 - 48.0 % [facility] Hemoglobin (Bld) [Mass/Vol] 16.1 g/dL High 12.0 - 16.0 g/dL [facility] IMMATURE GRANULOCYTES ABS AUTO 0.04 High [facility] Immature granulocytes/100 WBC (Bld) 0.3 % 0.0 - 0.5 % [facility] Interpretation and review of laboratory results Abnormal [facility] LYMPHOCYTES ABSOLUTE AUTO 3.2 [facility] Lymphocytes/100 WBC (Bld) 25.1 % 20.5 - 60.0 % [facility] MCH (RBC) [Entitic mass] 29.2 pg 26. 7 - 34.0 pg [facility] MCHC (RBC) [Mass/Vol] 31.6 g/dL 29.9 - 35.2 g/dL [facility] MCV (RBC) [Entitic vol] 92.2 fL 81.0 - 99.0 fL [facility] MONOCYTES ABSOLUTE AUTO 0.[address] [facility] Monocytes/100 WBC (Bld) 5.2 % 1.7 - 12.0 % [facility] NEUTROPHILS ABSOLUTE AUTO 8.6 High [facility] Neutrophils/100 WBC (Bld) 67 % 43.0 - 75.0 % [facility] Platelet mean volume (Bld) [Entitic vol] 12.8 fL 9.5 - 13.5 fL [facility] EO # 0.2 [facility] PLT 122 Low [facility] RBC 5.52 High [facility] WBC 12.8 High [facility] Office Visiton 08-08-2024 Follow-up visit [id number] Mitzi Macias 1970 F Date Provider Department Center 08/08/2024 [id number] BRIDGES [facility] Family History Problem Relation Age of Onset Heart attack Paternal Grandmother Family Status - Relation Status Age at Paternal Grandmother Level of Service:13872 MO OFFICE/OUTPATIENT ESTABLISHED MOD MDM 30 MIN Reason for Visit and Comments: Congestive Heart Failure [127] - Denies chest pain, SOB, and palpitations. Hypertension [055801] Hyperlipidemia [182] LVH [Other] Edema [[id number]] - Denies worsening edema. She sees wound care for RLE ulcer. She was seeing the vein specialists here in town but they are moving to [place] in a few weeks. Normal [facility] Glucose (Bld) [Mass/Vol]Orde red By: Mica Sauceda on 05-27-2024 Glucose Blood, POC 158 mg/dL [facility] Laboratory - Hematology and Cell countson 05-27-2024 HbA1c (Bld) [Mass fraction] 9.2 % [facility] No Panel InformationOrdered By: Mica Sauceda on 05-27-2024 [facility] CREATININEon 05-12-2024 Creatinine [Mass/Vol] 0.92 mg/dL 0.55 - 1.02 mg/dL [facility] GFR/1.73 sq M.predicted CKD-EPI (S/P/Bld) [Vol rate/Area] >60 >=60 mL/min/1.73m 2 [facility] EGFR-NON AF INDONESIAN >60 >=6 0 mL/min/1.73m 2 [facility] CBC AUTO DIFFon 12-06-2022 BASO # 0.0 103/ul Normal 0.0-0.1 [facility] Comment on above: Performed By: #### C BC #### [facility] [address] [place] [address] Dr. Ashlie Hills Basophils/100 WBC (Bld) 0.1 % Critically low 0.2-2.0 [facility] Comment on above: Performed By: #### C BC #### [facility] [address] [place] [address] Dr. Ashlie Hills EO # 0.0 103/ul Normal 0.0-0.7 [facility] Comment on above: Performed By: #### C BC #### [facility] [address] [place] [address] Dr. Ashlie Hills Eosinophils/100 WBC (Bld) 0.0 % Critically low 0.9-7.0 [facility] Comment on above: Performed By: #### C BC #### [facility] [address] [place] [address] Dr. Ashlie Hills Erythrocyte distribution width (RBC) [Ratio] 14.9 % Normal 11.0-15.0 [facility] Comment on above: Performed By: #### C BC #### [facility] [address] [place] [address] Dr. Ashlie Hills Hematocrit (Bld) [Volume fraction] 46.2 % Normal 36.0-48.0 [facility] Comment on above: Performed By: #### C BC #### [facility] [address] [place] [address] Dr. Ashlie Hills Hemoglobin (Bld) [Mass/Vol] 14.7 g/dL Normal 12.0-16.0 [facility] Comment on above: Performed By: #### C BC #### [facility] [address] [place] [address] Dr. Ashlie Hills IG # 0.06 10e3/ul Critically high 0.00-0.03 [facility] Comment on above: Performed By: #### C BC #### [facility] [address] [place] [address] Dr. Ashlie Hills IG % 0.4 % Normal 0.0-0.5 [facility] Comment on above: Performed By: #### C BC #### [facility] [address] [place] [address] Dr. Ashlie Hills LYMPH # 1.3 103/ul Normal 1.2-3.8 [facility] Comment on above: Performed By: #### C BC #### [facility] [address] [place] [address] Dr. Ashlie iHlls Lymphocytes/100 WBC (Bld) 9.4 % Critically low 20.5-60.0 [facility] Comment on above: Performed By: #### C BC #### [facility] [address] [place] [address] Dr. Ashlie Hills MANUAL DIFF REQ NO Normal [facility] Comment on above: Performed By: #### C BC #### [facility] [address] [place] [address] Dr. Ashlie Hills MCH (RBC) [Entitic mass] 28.4 pg Normal 26.7-34.0 [facility] Comment on above: Performed By: #### C BC #### [facility] [address] [place] [address] Dr. Ashlie Hills MCHC (RBC) [Mass/Vol] 31.8 g/dL Normal 29.9-35.2 [facility] Comment on above: Performed By: #### C BC #### [facility] [address] [place] [address] Dr. Ashlie Hills MCV (RBC) [Entitic vol] 89.4 fL Normal 81.0-99.0 [facility] Comment on above: Performed By: #### C BC #### [facility] [address] [place] [address] Dr. Ashlie Hills MONO # 0.5 103/ul Normal 0.3-0.8 [facility] Comment on above: Performed By: #### C BC #### [facility] [address] [place] [address] Dr. Ashlie Hills Monocytes/100 WBC (Bld) 3.4 % Normal 1.7-12.0 [facility] Comment on above: Performed By: #### C BC #### [facility] [address] [place] [address] Dr. Ashlie Hills NEUT # 11.8 103/ul Critically high 1.4-6.5 [facility] Comment on above: Performed By: #### C BC #### [facility] [address] [place] [address] Dr. Ashlie Hills Neutrophils/100 WBC (Bld) 86.7 % Critically high 43.0-75.0 [facility] Comment on above: Performed By: #### C BC #### [facility] [address] [place] [address] Dr. Ashlie Hills Platelet mean volume (Bld) [Entitic vol] 12.6 fL Normal 9.5-13.5 [facility] Comment on above: Performed By: #### C BC #### [facility] [address] [place] [address] Dr. Ashlie Hills PLT 133 103/ul Critically low 150-450 [facility] Comment on above: Performed By: #### C BC #### [facility] [address] [place] [address] Dr. Ashlie Hills RBC 5.17 106/ul Normal 4.20-5.40 [facility] Comment on above: Performed By: #### C BC #### [facility] [address] [place] [address] Dr. Ashlie Hills WBC 13.6 103/ul Critically high 4.0-11.0 [facility] Comment on above: Performed By: #### C BC #### [facility] [address] [place] [address] Dr. Ashlie Hills MAGNESIUMon 12-06-2022 Magnesium [Mass/Vol] 2.2 mg/dL Normal 1.8-2.4 [facility] Comment on above: Performed By: #### I NFLUAB #### [facility] [address] [place] [address] Dr. Ashlie Hills POINT OF CARE GLUCOSEon 11-08 Glucose [Mass/Vol] 340 mg/dL Critically high 74-106 [facility] Comment on above: Performed By: #### P OCGLUC #### [facility] [address] [place] [address] Dr. Ashlie Hills Glucose [Mass/Vol] 276 mg/dL Critically high 74-106 [facility] Comment on above: Performed By: #### C BC #### [facility] [address] [place] [address] Dr. Ashlie Hills Glucose [Mass/Vol] 333 mg/dL Critically high -106 [facility] Comment on above: Performed By: #### C BC #### [facility] [address] [place] [address] Dr. Ashlie Hills PROF CHEM 8 (BAS METB)on Anion gap [Moles/Vol] 10.9 mmol/L Normal [facility] Comment on above: Performed By: #### I NFLUAB #### [facility] [address] [place] [address] Dr. Ashlie Hills Calcium [Mass/Vol] 9.3 mg/dL Normal 8.5-10.1 [facility] Comment on above: Performed By: #### I NFLUAB #### [facility] [address] [place] [address] Dr. Ashlie Hills Chloride [Moles/Vol] 103 mmol/L Normal 98-107 [facility] Comment on above: Performed By: #### I NFLUAB #### [facility] [address] [place] [address] Dr. Ashlie Hills CO2 [Moles/Vol] 31.2 mmol/L Normal 21.0-32.0 [facility] Comment on above: Performed By: #### I NFLUAB #### [facility] [address] [place] [address] Dr. Ashlie Hills Creatinine [Mass/Vol] 0.96 mg/dL Normal 0.55-1.02 [facility] Comment on above: Performed By: #### I NFLUAB #### [facility] [address] [place], [place] [id number] Dr. Ashlie Hills EGFR-AF INDONESIAN >60 Normal >=60 [facility] Comment on above: Performed By: #### I NFLUAB #### [facility] [address] [place] [address] Dr. Ashlie Hills EGFR-NON AF INDONESIAN >60 Normal >=60 [facility] Comment on above: Performed By: #### I NFLUAB #### [facility] [address] [address] [address] Ashlie Hills Glucose [Mass/Vol] 288 mg/dL Critically high 74-106 T [facility] Comment on above: Performed By: #### I NFLUAB #### [facility] [address] [place] [address] Dr. Ashlie Hills Potassium [Moles/Vol] 5.1 mmol/L Normal 3.5-5.1 [facility] Comment on above: Performed By: #### I NFLUAB #### [facility] [address] [place] [address] Dr. Ashlie Hills Sodium [Moles/Vol] 140 mmol/L Normal 136-145 [facility] Comment on above: Performed By: #### I NFLUAB #### [facility] [address] [place] [address] Dr. Ashlie Hills Urea nitrogen [Mass/Vol] 30.0 mg/dL Critically high 7.0-18 .0 [facility] Comment on above: Performed By: #### I NFLUAB #### [facility] [address] [place] [address] Dr. Ashlie Hills Urea nitrogen/Creatinine [Mass ratio] 31.2 mg/mg Normal [facility] Comment on above: Performed By: #### I NFLUAB #### [facility] [address] [place] [address] Dr. Ashlie Hills CBC AUTO DIFFon 12-05-2022 BASO # 0.0 103/ul Normal 0.0-0.1 [facility] Comment on above: Performed By: #### C BC #### [facility] [address] [place] [address] Dr. Ashlie Hills Basophils/100 WBC (Bld) 0.4 % Normal 0.2-2.0 [facility] Comment on above: Performed By: #### C BC #### [facility] [address] [place] [address] Dr. Ashlie Hills EO # 0.0 103/ul Normal 0.0-0.7 [facility] Comment on above: Performed By: #### C BC #### [facility] [address] [place] [address] Dr. Ashlie Hills Eosinophils/100 WBC (Bld) 0.0 % Critically low 0.9-7.0 [facility] Comment on above: Performed By: #### C BC #### [facility] [address] [place] [address] Dr. Ashlie Hills Erythrocyte distribution width (RBC) [Ratio] 14.8 % Normal 11.0-15.0 [facility] Comment on above: Performed By: #### C BC #### [facility] [address] [place] [address] Dr. Ashlie Hills Hematocrit (Bld) [Volume fraction] 49.9 % Critically high 36.0-48.0 [facility] Comment on above: Performed By: #### C BC #### [facility] [address] [place] [address] Dr. Ashlie Hills Hemoglobin (Bld) [Mass/Vol] 15.7 g/dL Normal 12.0-16.0 [facility] Comment on above: Performed By: #### C BC #### [facility] [address] [place] [address] Dr. Ashlie Hills IG # 0.04 10e3/ul Critically high 0.00-0.03 [facility] Comment on above: Performed By: #### C BC #### [facility] [address] [place] [address] Dr. Ashlie Hills IG % 0.5 % Normal 0.0-0.5 [facility] Comment on above: Performed By: #### C BC #### [facility] [address] [place] [address] Dr. Ashlie Hills LYMPH # 1.1 103/ul Critically low 1.2-3.8 [facility] Comment on above: Performed By: #### C BC #### [facility] [address] [place] [address] Dr. Ashlie Hills Lymphocytes/100 WBC (Bld) 12.7 % Critically low 20.5-60.0 [facility] Comment on above: Performed By: #### C BC #### [facility] [address] [place] [address] Dr. Ashlie Hills MANUAL DIFF REQ NO Normal [facility] Comment on above: Performed By: #### C BC #### [facility] [address] [place] [address] Dr. Ashlie Hills MCH (RBC) [Entitic mass] 28.1 pg Normal 26.7-34.0 [facility] Comment on above: Performed By: #### C BC #### [facility] [address] [place] [address] Dr. Ashlie Hills MCHC (RBC) [Mass/Vol] 31.5 g/dL Normal 29.9-35.2 [facility] Comment on above: Performed By: #### C BC #### [facility] [address] [place] [address] Dr. Ashlie Hills MCV (RBC) [Entitic vol] 89.3 fL Normal 81.0-99.0 [facility] Comment on above: Performed By: #### C BC #### [facility] [address] [place] [address] Dr. Ashlie Hills MONO # 0.1 103/ul Critically low 0.3-0.8 [facility] Comment on above: Performed By: #### C BC #### [facility] [address] [place] [address] Dr. Ashlie Hills Monocytes/100 WBC (Bld) 1.3 % Critically low 1.7-12.0 [facility] Comment on above: Performed By: #### C BC #### [facility] [address] [place] [address] Dr. Ashlie Hills NEUT # 7.2 103/ul Critically high 1.4-6.5 [facility] Comment on above: Performed By: #### C BC #### [facility] [address] [place] [address] Dr. Ashlie Hills Neutrophils/100 WBC (Bld) 85.1 % Critically high 43.0-75.0 [facility] Comment on above: Performed By: #### C BC #### [facility] [address] [place] [address] Dr. Ashlie Hills Platelet mean volume (Bld) [Entitic vol] 12.2 fL Normal 9.5-13.5 [facility] Comment on above: Performed By: #### C BC #### [facility] [address] [place] [address] Dr. Ashlie Hills PLT 116 103/ul Critically low 150-450 [facility] Comment on above: Performed By: #### C BC #### [facility] [address] [place] [address] Dr. Ashlie Hills RBC 5.59 106/ul Critically high 4.20-5.40 [facility] Comment on above: Performed By: #### C BC #### [facility] [address] [place] [address] Dr. Ashlie Hills WBC 8.5 103/ul Normal 4.0-11.0 [facility] Comment on above: Performed By: #### C BC #### [facility] [address] [place] [address] Dr. Ashlie Hills CTA CHEST WO W [...] [facility] [address] [place] [address] Dr. Ashlie Hills POINT OF CARE GLUCOSEon 11-08 Glucose [Mass/Vol] 293 mg/dL Critically high 74-106 [facility] Comment on above: Performed By: #### P OCGLUC #### [facility] [address] [place] [address] Dr. Ashlie Hills Glucose [Mass/Vol] 269 mg/dL Critically high 74-106 [facility] Comment on above: Performed By: #### P OCGLUC #### [facility] [address] [place] [address] Dr. Ashlie Hills Glucose [Mass/Vol] 223 mg/dL Critically high 74-106 [facility] Comment on above: Performed By: #### C VDAGS #### [facility] [address] [place] [address] Dr. Ashlie Hills PROF CHEM 8 (BAS METB)on Anion gap [Moles/Vol] 11.6 mmol/L Normal [facility] Comment on above: Performed By: #### P OCGLUC #### [facility] [address] [address] [address] Ashlie Hills Calcium [Mass/Vol] 9.2 mg/dL Normal 8.5-10.1 [facility] Comment on above: Performed By: #### P OCGLUC #### [facility] [address] [address] [address] Ashlie [place] Chloride [Moles/Vol] 102 mmol/L Normal 98-107 [facility] Comment on above: Performed By: #### P OCGLUC #### [facility] [address] [address] [address] Ashlie [place] CO2 [Moles/Vol] 28.7 mmol/L Normal 21.0-32.0 [facility] Comment on above: Performed By: #### P OCGLUC #### [facility] [address] [address] [address] Ashlie Hills Creatinine [Mass/Vol] 1.04 mg/dL Critically high 0.55-1.02 [facility] Comment on above: Performed By: #### P OCGLUC #### [facility] [address] [address] [address] Ashlie [place] EGFR-AF INDONESIAN >60 Normal >=60 [facility] Comment on above: Performed By: #### P OCGLUC #### [facility] [address] [address] [address] Ashlie Hills EGFR-NON AF INDONESIAN 56 mL/min/1.73m2 Critically low >=60 [facility] Comment on above: Performed By: #### P OCGLUC #### [facility] [address] [address] [address] Ashlie [place] Glucose [Mass/Vol] 231 mg/dL Critically high 74-106 [facility] Comment on above: Performed By: #### P OCGLUC #### [facility] [address] [address] [address] Ashlie Hills Potassium [Moles/Vol] 4.3 mmol/L Normal 3.5-5.1 [facility] Comment on above: Performed By: #### P OCGLUC #### [facility] [address] [place] [address] Dr. Ashlie Hills Sodium [Moles/Vol] 138 mmol/L Normal 136-145 [facility] Comment on above: Performed By: #### P OCGLUC #### [facility] [address] [place] [address] Dr. Ashlie Hills Urea nitrogen [Mass/Vol] 17.0 mg/dL Normal 7.0-18.0 [facility] Comment on above: Performed By: #### P OCGLUC #### [facility] [address] [place] [address] Dr. Ashlie Hills Urea nitrogen/Creatinine [Mass ratio] 16.3 mg/mg Normal [facility] Comment on above: Performed By: #### P OCGLUC #### [facility] [address] [place] [address] Dr. Ashlie Hills RESPIRATORY PANEL PLUSon Adenovirus Not detected Normal NOT DETECTED The [facility] Comment on above: Performed By: #### C VDAGS #### [facility] [address] [place] [address] Dr. Ashlie Shaffer. Parapertusis Not detected Normal NOT DETECTED The [facility] Comment on above: Performed By: #### C VDAGS #### [facility] [address] [place] [address] Dr. Ashlie Hills B. Pertussis Not detected Normal NOT DETECTED The [facility] Comment on above: Performed By: #### C VDAGS #### [facility] [address] [place] [address] Dr. Ashlie Hills Chlamydia Pneumoniae Not detected Normal NOT DETECTED The [facility] Comment on above: Performed By: #### C VDAGS #### [facility] [address] [place] [address] Dr. Ashlie Hills Coronavirus 229E Not detected Normal NOT DETECTED The [facility] Comment on above: Performed By: #### C VDAGS #### [facility] [address] [place] [address] Dr. Ashlie Hills Coronavirus HKU1 Not detected Normal NOT DETECTED The [facility] Comment on above: Performed By: #### C VDAGS #### [facility] [address] [place] [address] Dr. Ashlie Hills Coronavirus NL63 Not detected Normal NOT DETECTED The [facility] Comment on above: Performed By: #### C VDAGS #### [facility] [address] [place] [address] Dr. Ashlie Hills Coronavirus OC43 Not detected Normal NOT DETECTED The [facility] Comment on above: Performed By: #### C VDAGS #### [facility] [address] [place] [address] Dr. Ashlie Hills Influenza A H1 Not detected Normal NOT DETECTED The [facility] Comment on above: Performed By: #### C VDAGS #### [facility] [address] [place] [address] Dr. Ashlie Hills Influenza A H1 2009 Not detected Normal NOT DETECTED [facility] Comment on above: Performed By: #### C VDAGS #### [facility] [address] [place] [address] Dr. Ashlie Hills Influenza A H3 Not detected Normal NOT DETECTED The [facility] Comment on above: Performed By: #### C VDAGS #### [facility] [address] [place] [address] Dr. Ashlie Hills Influenza B Not detected Normal NOT DETECTED The [facility] Comment on above: Performed By: #### C VDAGS #### [facility] [address] [place] [address] Dr. Ashlie Hills Metapneumovirus Not detected Normal NOT DETECTED The [facility] Comment on above: Performed By: #### C VDAGS #### [facility] [address] [place] [address] Dr. Ashlie Hills Mycoplas. Pneumoniae Not detected Normal NOT DETECTED The [facility] Comment on above: Performed By: #### C VDAGS #### [facility] [address] [place] [address] Dr. Ashlie Hills Parainfluenza 1 Not detected Normal NOT DETECTED The [facility] Comment on above: Performed By: #### C VDAGS #### [facility] [address] [place] [address] Dr. Ashlie Hills Parainfluenza 2 Not detected Normal NOT DETECTED The [facility] Comment on above: Performed By: #### C VDAGS #### [facility] [address] [place] [address] Dr. Ashlie Hills Parainfluenza 3 Detected Abnormal NOT DETECTED The [facility] Comment on above: Performed By: #### C VDAGS #### [facility] [address] [place] [address] Dr. Ashlie Hills Parainfluenza 4 Not detected Normal NOT DETECTED The [facility] Comment on above: Performed By: #### C VDAGS #### [facility] [address] [place] [address] Dr. Ashlie Hills Rhino/Enterovirus Not detected Normal NOT DETECTED The [facility] Comment on above: Performed By: #### C VDAGS #### [facility] [address] [place] [address] Dr. Ashlie Hills RP2 Header 1 RESPIRATORY PANEL: VIRUSES Normal The [facility] Comment on above: Performed By: #### C VDAGS #### [facility] [address] [place] [address] Dr. Ashlie Hills RP2 Header 2 RESPIRATORY PANEL: BACTERIA Normal The [facility] Comment on above: Performed By: #### C VDAGS #### [facility] [address] [place] [address] Dr. Ashlie Hills RSV Not detected Normal NOT DETECTED The [facility] Comment on above: Performed By: #### C VDAGS #### [facility] [address] [place] [address] Dr. Ashlie Hills SARS-CoV-2 (COVID-19) RNA MADDY+probe Ql (Unsp spec) Not detected Normal NOT DETECTED The [facility] Comment on above: Performed By: #### C VDAGS #### [facility] [address] [place] [address] Dr. Ashlie Hills XR CHEST 1 Von [...] by: MARYANNE POWER Date: 2022-12-04 22:23 Normal [facility] BLOOD GASES BTYon 12-04-2022 02 MODE ROOM AIR Normal [facility] Comment on above: Performed By: #### C BC #### [facility] [address] [place] [address] Dr. Ashlie Hills ALLENS TEST Positive Normal [facility] Comment on above: Performed By: #### C BC #### [facility] [address] [place] [address] Dr. Ashlie Hills Base excess Calc (Bld) [Moles/Vol] 5.4 mmol/L Critically high -2.0-2.0 [facility] Comment on above: Performed By: #### C BC #### [facility] [address] [place] [address] Dr. Ashlie Hills BIPAP PRESSURE Normal [facility] Comment on above: Performed By: #### C BC #### [facility] [address] [place] [address] Dr. Ashlie Hills CPAP [facility] Comment on above: Performed By: #### C BC #### [facility] [address] [place] [address] Dr. Ashlie Hills FIO2 Normal [facility] Comment on above: Performed By: #### C BC #### [facility] [address] [place] [address] Dr. Ashlie Hills HCO3 (Bld) [Moles/Vol] 30.8 mmol/L Critically high 22.0-26 .0 [facility] Comment on above: Performed By: #### C BC #### [facility] [address] [address] [address] [facility] Comment on above: Performed By: #### C BC #### [facility] [address] [place] [address] Dr. Ashlie Hills MINUTE VOLUME Normal [facility] Comment on above: Performed By: #### C BC #### [facility] [address] [address] [address] Ashlie Hills Oxygen (Bld) [Partial pressure] 46.3 mm[Hg] Critically low 80.0-100.0 [facility] Comment on above: Performed By: #### C BC #### [facility] [address] [place] [address] Dr. Ashlie Hills Oxygen saturation in Blood 83.9 % Critically low 95.0-100.0 [facility] Comment on above: Performed By: #### C BC #### [facility] [address] [address] [address] Ashlie Hills PCO2 54.2 mmHg Critically high 35.0-45.0 [facility] Comment on above: Performed By: #### C BC #### [facility] [address] [address] [address] Ashlie Hills PEEP [facility] Comment on above: Performed By: #### C BC #### [facility] [address] [address] [address] Ashlie Hills pH (Bld) 7.363 [pH] Normal 7.350-7.450 [facility] Comment on above: Performed By: #### C BC #### [facility] [address] [address] [address] Ashlie Hills [facility] Comment on above: Performed By: #### C BC #### [facility] [address] [place] [address] Dr. Ashlie Hills PS [facility] Comment on above: Performed By: #### C BC #### [facility] [address] [place] [address] Dr. Ashlie Hills P[facility] S[facility] Comment on above: Performed By: #### C BC #### [facility] [address] [place] [address] Dr. Ashlie Hills [facility] Comment on above: Performed By: #### C BC #### [facility] [address] [place] [address] Dr. Ashlie Hills VENT MODE [facility] Comment on above: Performed By: #### C BC #### [facility] [address] [place] [address] Dr. Ashlie Hills [facility] Comment on above: Performed By: #### C BC #### [facility] [address] [place] [address] Dr. Ashlie Hills BNPon 12-04-2022 Natriuretic peptide B (Bld) [Mass/Vol] 76.0 pg/mL Normal <=900.0 [facility] Comment on above: Performed By: #### P OCGLUC #### [facility] [address] [place] [address] Dr. Ashlie Hills CBC AUTO DIFFon 12-04-2022 BASO # 0.1 103/ul Normal 0.0-0.1 [facility] Comment on above: Performed By: #### C BC #### [facility] [address] [place] [address] Dr. Ashlie [place] Basophils/100 WBC (Bld) 0.6 % Normal 0.2-2.0 [facility] Comment on above: Performed By: #### C BC #### [facility] [address] [place] [address] Dr. Ashlie Hills EO # 0.2 103/ul Normal 0.0-0.7 [facility] Comment on above: Performed By: #### C BC #### [facility] [address] [place] [address] Dr. Ashlie [place] Eosinophils/100 WBC (Bld) 1.9 % Normal 0.9-7.0 [facility] Comment on above: Performed By: #### C BC #### [facility] [address] [place] [address] Dr. Ashlie Hills Erythrocyte distribution width (RBC) [Ratio] 15.0 % Normal 11.0-15.0 [facility] Comment on above: Performed By: #### C BC #### [facility] [address] [place] [address] Dr. Ashlie [place] Hematocrit (Bld) [Volume fraction] 49.1 % Critically high 36.0-48.0 [facility] Comment on above: Performed By: #### C BC #### [facility] [address] [place] [address] Dr. Ashlie Hills Hemoglobin (Bld) [Mass/Vol] 15.6 g/dL Normal 12.0-16.0 [facility] Comment on above: Performed By: #### C BC #### [facility] [address] [place] [address] Dr. Ashlie Hills IG # 0.02 10e3/ul Normal 0.00-0.03 [facility] Comment on above: Performed By: #### C BC #### [facility] [address] [place] [address] Dr. Ashlie Hills IG % 0.2 % Normal 0.0-0.5 [facility] Comment on above: Performed By: #### C BC #### [facility] [address] [place] [address] Dr. Ashlie Hills LYMPH # 2.8 103/ul Normal 1.2-3.8 [facility] Comment on above: Performed By: #### C BC #### [facility] [address] [place] [address] Dr. Ashlie Hills Lymphocytes/100 WBC (Bld) 29.9 % Normal 20.5-60.0 [facility] Comment on above: Performed By: #### C BC #### [facility] [address] [place] [address] Dr. Ashlie Hills MANUAL DIFF REQ NO Normal [facility] Comment on above: Performed By: #### C BC #### [facility] [address] [place], [place] [id number] Dr. Ashlie Hills MCH (RBC) [Entitic mass] 28.5 pg Normal 26.7-34.0 [facility] Comment on above: Performed By: #### C BC #### [facility] [address] [place] [address] Dr. Ashlie Hills MCHC (RBC) [Mass/Vol] 31.8 g/dL Normal 29.9-35.2 [facility] Comment on above: Performed By: #### C BC #### [facility] [address] [place] [address] Dr. Ashlie Hills MCV (RBC) [Entitic vol] 89.8 fL Normal 81.0-99.0 [facility] Comment on above: Performed By: #### C BC #### [facility] [address] [place] [address] Dr. Ashlie Hills MONO # 1.0 103/ul Critically high 0.3-0.8 [facility] Comment on above: Performed By: #### C BC #### [facility] [address] [place] [address] Dr. Ashlie Hills Monocytes/100 WBC (Bld) 10.6 % Normal 1.7-12.0 [facility] Comment on above: Performed By: #### C BC #### [facility] [address] [place] [address] Dr. Ashlie Hills NEUT # 5.3 103/ul Normal 1.4-6.5 [facility] Comment on above: Performed By: #### C BC #### [facility] [address] [place] [address] Dr. Ashlie Hills Neutrophils/100 WBC (Bld) 56.8 % Normal 43.0-75.0 [facility] Comment on above: Performed By: #### C BC #### [facility] [address] [place] [address] Dr. Ashlie Hills Platelet mean volume (Bld) [Entitic vol] 12.5 fL Normal 9.5-13.5 [facility] Comment on above: Performed By: #### C BC #### [facility] [address] [place] [address] Dr. Ashlie Hills PLT 109 103/ul Critically low 150-450 [facility] Comment on above: Performed By: #### C BC #### [facility] [address] [place] [address] Dr. Ashlie Hills RBC 5.47 106/ul Critically high 4.20-5.40 [facility] Comment on above: Performed By: #### C BC #### [facility] [address] [place] [address] Dr. Ashlie Hills WBC 9.4 103/ul Normal 4.0-11.0 [facility] Comment on above: Performed By: #### C BC #### [facility] [address] [place] [address] Dr. Ashlie Hills PROF 14(COMP METB)on 023 Albumin [Mass/Vol] 2.9 g/dL Critically low 3.4-5.0 [facility] Comment on above: Performed By: #### C BC #### [facility] [address] [place] [address] Dr. Ashlie [place] Albumin/Globulin [Mass ratio] 0.6 {ratio} Normal [facility] Comment on above: Performed By: #### C BC #### [facility] [address] [place] [address] Dr. Ashlie Hills ALP [Catalytic activity/Vol] 64 U/L Normal 46-116 [facility] Comment on above: Performed By: #### C BC #### [facility] [address] [place] [address] Dr. Ashlie Hills ALT [Catalytic activity/Vol] 16 U/L Normal 14-59 [facility] Comment on above: Performed By: #### C BC #### [facility] [address] [place] [address] Dr. Ashlie Hills Anion gap [Moles/Vol] 9.6 mmol/L Normal [facility] Comment on above: Performed By: #### C BC #### [facility] [address] [place] [address] Dr. Ashlie Hills AST [Catalytic activity/Vol] 16 U/L Normal 15-37 [facility] Comment on above: Performed By: #### C BC #### [facility] [address] [place] [address] Dr. Ashlie [place] Bilirubin [Mass/Vol] 0.5 mg/dL Normal 0.2-1.0 [facility] Comment on above: Performed By: #### C BC #### [facility] [address] [address] [address] Ashlie [place] Calcium [Mass/Vol] 8.7 mg/dL Normal 8.5-10.1 [facility] Comment on above: Performed By: #### C BC #### [facility] [address] [place] [address] Dr. Ashlie [place] Chloride [Moles/Vol] 103 mmol/L Normal 98-107 [facility] Comment on above: Performed By: #### C BC #### [facility] [address] [place] [address] Dr. Ashlie [place] CO2 [Moles/Vol] 30.7 mmol/L Normal 21.0-32.0 [facility] Comment on above: Performed By: #### C BC #### [facility] [address] [place] [address] Dr. Ashlie Hills Creatinine [Mass/Vol] 0.96 mg/dL Normal 0.55-1.02 [facility] Comment on above: Performed By: #### C BC #### [facility] [address] [place] [address] Dr. Ashlie Hills EGFR-AF INDONESIAN >60 Normal >=60 [facility] Comment on above: Performed By: #### C BC #### [facility] [address] [place] [address] Dr. Ashlie [place] EGFR-NON AF INDONESIAN >60 Normal >=60 [facility] Comment on above: Performed By: #### C BC #### [facility] [address] [place] [address] Dr. Ashlie Hills Globulin (S) [Mass/Vol] 4.7 g/dL Normal T [facility] Comment on above: Performed By: #### C BC #### [facility] [address] [address] [address] Ashlie [place] Glucose [Mass/Vol] 170 mg/dL Critically high 74-106 [facility] Comment on above: Performed By: #### C BC #### [facility] [address] [address] [address] Ashlie [place] Potassium [Moles/Vol] 4.3 mmol/L Normal 3.5-5.1 [facility] Comment on above: Performed By: #### C BC #### [facility] [address] [address] [address] Ashlie [place] Protein [Mass/Vol] 7.6 g/dL Normal 6.4-8.2 [facility] Comment on above: Performed By: #### C BC #### [facility] [address] [address] [address] Ashlie iHlls Sodium [Moles/Vol] 139 mmol/L Normal 136-145 [facility] Comment on above: Performed By: #### C BC #### [facility] [address] [address] [address] Ashlie [place] Urea nitrogen [Mass/Vol] 16.0 mg/dL Normal 7.0-18.0 [facility] Comment on above: Performed By: #### C BC #### [facility] [address] [address] [address] Ashlie [place] Urea nitrogen/Creatinine [Mass ratio] 16.7 mg/mg Normal [facility] Comment on above: Performed By: #### C BC #### [facility] [address] [address] [address] Ashlie Hills SYMPTOMATIC COVID-19 ANTIGEN on 12-04-2022 EUA Statement SEE BELOW Normal [facility] Comment on above: Result Comment: This [...] [facility] [address] [place] [address] Dr. Ashlie Hills SARS-CoV-2 (COVID-19) RNA MADDY+probe Ql (Unsp spec) Negative Normal NEGATIVE [facility] Comment on above: Performed By: #### C VDAGS #### [facility] [address] [place] [address] Dr. Ashlie Hills TROPONIN, HIGH SENSITIVITYon 12-04-2022 [...] HAS BEEN CONFIRMED THE DECISION THRESHOLD FOR [place] DIAGNOSIS. Performed By: #### P OCGLUC #### [facility] [address] [place] [address] Dr. Ashlie Hills MICROALBUMIN, RAND URon 05- mALB 35.8 mg/dL Critically high <=30.0 The [facility] Comment on above: Performed By: #### C VDAGS #### [facility] [address] [place] [address] Dr. Ashlie Hills UA RANDOM W/MICROSCOPICon BACTERIA NONE SEEN Normal NONE SEEN The [facility] Comment on above: Performed By: #### C VDAGS #### [facility] [address] [place] [address] Dr. Ashlie Hills Bilirubin Ql (U) Negative Normal NEGATIVE [facility] Comment on above: Performed By: #### C VDAGS #### [facility] [address] [place] [address] Dr. Ashlie Hills CAST SEEN Abnormal NONE SEEN [facility] Comment on above: Performed By: #### C VDAGS #### [facility] [address] [place] [address] Dr. Ashlie Hills Clarity (U) CLEAR Normal CLEAR [facility] Comment on above: Performed By: #### C VDAGS #### [facility] [address] [place] [address] Dr. Ashlie Hills Color (U) YELLOW Normal YELLOW [facility] Comment on above: Performed By: #### C VDAGS #### [facility] [address] [place] [address] Dr. Ashlie Hills Crystals LM Nom (Urine sed) NONE SEEN Normal NONE SEEN [facility] Comment on above: Performed By: #### C VDAGS #### [facility] [address] [place] [address] Dr. Ashlie Hills Epithelial cells LM Ql (Urine sed) MODERATE Abnormal NONE SEEN /RARE [facility] Comment on above: Performed By: #### C VDAGS #### [facility] [address] [place] [address] Dr. Ashlie Hills Glucose Ql (U) Negative Normal NEGATIVE The [facility] Comment on above: Performed By: #### C VDAGS #### [facility] [address] [place] [address] Dr. Ashlie Hills Hemoglobin Ql (U) TRACE-INTACT Abnormal NEGATIVE [facility] Comment on above: Performed By: #### C VDAGS #### [facility] [address] [place] [address] Dr. Ashlie Hills Ketones Ql (U) Negative Normal NEGATIVE The [facility] Comment on above: Performed By: #### C VDAGS #### [facility] [address] [place] [address] Dr. Ashlie Hills LEUKOCYTES Negative Normal NEGATIVE [facility] Comment on above: Performed By: #### C VDAGS #### [facility] [address] [place] [address] Dr. Ashlie Hills MUCOUS NONE SEEN Normal NONE SEEN [facility] Comment on above: Performed By: #### C VDAGS #### [facility] [address] [place] [address] Dr. Ashlie Hills Nitrite Ql (U) Negative Normal NEGATIVE [facility] Comment on above: Performed By: #### C VDAGS #### [facility] [address] [place] [address] Dr. Ashlie Hills pH (U) 5.0 [pH] Normal 5-9 [facility] Comment on above: Performed By: #### C VDAGS #### [facility] [address] [place] [address] Dr. Ashlie Hills RBC 0-2 Normal 0-2 [facility] Comment on above: Performed By: #### C VDAGS #### [facility] [address] [place] [address] Dr. Ashlie Hills SPEC GRAVITY 1.030 Abnormal 1.005-<=1.02 5 [facility] Comment on above: Performed By: #### C VDAGS #### [facility] [address] [place] [address] Dr. Ashlie Hills UA PROTEIN 100 mg/dl Abnormal NEGATIVE/ TRACE [facility] Comment on above: Performed By: #### C VDAGS #### [facility] [address] [place] [address] Dr. Ashlie Hills Urobilinogen Qn (U) 0.2 {Little'U}/dL Normal 0.2 - 1. 0 [facility] Comment on above: Performed By: #### C VDAGS #### [facility] [address] [place] [address] Dr. Ashlie Hills WBC NONE SEEN Normal NONE SEEN [facility] Comment on above: Performed By: #### C VDAGS #### [facility] [address] [place] [address] Dr. Ashlie Hills CBC AUTO DIFFon 11-22-2022 BASO # 0.0 103/ul Normal 0.0-0.1 [facility] Comment on above: Performed By: #### C BC #### [facility] [address] [address] [address] Ashlie Hills Basophils/100 WBC (Bld) 0.3 % Normal 0.2-2.0 [facility] Comment on above: Performed By: #### C BC #### [facility] [address] [address] [address] Ashlie Hills EO # 0.4 103/ul Normal 0.0-0.7 [facility] Comment on above: Performed By: #### C BC #### [facility] [address] [address] [address] Ashlie Hills Eosinophils/100 WBC (Bld) 3.0 % Normal 0.9-7.0 [facility] Comment on above: Performed By: #### C BC #### [facility] [address] [place] [address] Dr. Ashlie Hills Erythrocyte distribution width (RBC) [Ratio] 15.3 % Critically high 11.0-15.0 [facility] Comment on above: Performed By: #### C BC #### [facility] [address] [place] [address] Dr. Ashlie Hills Hematocrit (Bld) [Volume fraction] 52.4 % Critically high 36.0-48.0 [facility] Comment on above: Performed By: #### C BC #### [facility] [address] [place] [address] Dr. Ashlie Hills Hemoglobin (Bld) [Mass/Vol] 16.8 g/dL Critically high 12.0-16.0 [facility] Comment on above: Performed By: #### C BC #### [facility] [address] [address] [address] Ashlie Hills IG # 0.04 10e3/ul Critically high 0.00-0.03 [facility] Comment on above: Performed By: #### C BC #### [facility] [address] [address] [address] Ashlie Hills IG % 0.3 % Normal 0.0-0.5 [facility] Comment on above: Performed By: #### C BC #### [facility] [address] [address] [address] Ashlie Hills LYMPH # 4.5 103/ul Critically high 1.2-3.8 [facility] Comment on above: Performed By: #### C BC #### [facility] [address] [place] [address] Dr. Ashlie Hills Lymphocytes/100 WBC (Bld) 33.2 % Normal 20.5-60.0 [facility] Comment on above: Performed By: #### C BC #### [facility] [address] [place] [address] Dr. Ashlie Hills MANUAL DIFF REQ NO Normal [facility] Comment on above: Performed By: #### C BC #### [facility] [address] [place] [address] Dr. Ashlie Hills MCH (RBC) [Entitic mass] 28.0 pg Normal 26.7-34.0 [facility] Comment on above: Performed By: #### C BC #### [facility] [address] [place] [address] Dr. Ashlie Hills MCHC (RBC) [Mass/Vol] 32.1 g/dL Normal 29.9-35.2 [facility] Comment on above: Performed By: #### C BC #### [facility] [address] [place] [address] Dr. Ashlie Hills MCV (RBC) [Entitic vol] 87.3 fL Normal 81.0-99.0 [facility] Comment on above: Performed By: #### C BC #### [facility] [address] [place] [address] Dr. Ashlie Hills MONO # 0.8 103/ul Normal 0.3-0.8 [facility] Comment on above: Performed By: #### C BC #### [facility] [address] [place] [address] Dr. Ashlie Hills Monocytes/100 WBC (Bld) 5.7 % Normal 1.7-12.0 [facility] Comment on above: Performed By: #### C BC #### [facility] [address] [address] [address] Ashlie Hills NEUT # 7.8 103/ul Critically high 1.4-6.5 [facility] Comment on above: Performed By: #### C BC #### [facility] [address] [address] [address] Ashlie Hills Neutrophils/100 WBC (Bld) 57.5 % Normal 43.0-75.0 [facility] Comment on above: Performed By: #### C BC #### [facility] [address] [address] [address] Ashlie Hills Platelet mean volume (Bld) [Entitic vol] 12.0 fL Normal 9.5-13.5 [facility] Comment on above: Performed By: #### C BC #### [facility] [address] [place] [address] Dr. Ashlie Hills PLT 152 103/ul Normal 150-450 [facility] Comment on above: Performed By: #### C BC #### [facility] [address] [address] [address] Ashlie Hills RBC 6.00 106/ul Critically high 4.20-5.40 [facility] Comment on above: Performed By: #### C BC #### [facility] [address] [address] [address] Ashlie Hills WBC 13.6 103/ul Critically high 4.0-11.0 [facility] Comment on above: Performed By: #### C BC #### [facility] [address] [place] [address] Dr. Ashlie Hills LIPID PROFILEon 11-22-2022 CHOL-HDL RATIO NORM SEE BELOW Normal [facility] Comment on above: Result Comment: 3.3 - 4.4 LOW RISK 4.4 - 7.1 AVERAGE RISK 7.1 - 11.0 MODERATE RISK >11.0 HIGH RISK Performed By: #### C BC #### [facility] [address] [place] [address] Dr. Ashlie Hills Cholesterol [Mass/Vol] 139 mg/dL Normal <=200 [facility] Comment on above: Performed By: #### C BC #### [facility] [address] [address] [address] Ashlie Hills Cholesterol in HDL [Mass/Vol] 35 mg/dL Critically low 40-60 [facility] Comment on above: Performed By: #### C BC #### [facility] [address] [address] [address] Ashlie Hills Cholesterol in LDL [Mass/Vol] 67.4 mg/dL Normal [facility] Comment on above: Performed By: #### C BC #### [facility] [address] [address] [address] Ashlie Hills Cholesterol.total/Choles terol in HDL [Mass ratio] 4.0 {ratio} Normal [facility] Comment on above: Performed By: #### C BC #### [facility] [address] [address] [address] Ashlie Hills HDL NORMAL > or = 60 mg/dl - LOW CARDIOVASCULAR RISK <40 mg/dl - HIGH CARDIOVASCULAR RISK Normal [facility] Comment on above: Performed By: #### C BC #### [facility] [address] [address] [address] Ashlie Hills LDL CALC NORMAL SEE BELOW Normal [facility] Comment on above: Result Comment: <100 mg/dl OPTIMAL 100 - 129 mg/dl NEAR OR ABOVE OPTIMAL 130 - 159 mg/dl BORDERLINE HIGH 160 - 189 mg/dl HIGH >190 mg/dl VERY HIGH Performed By: #### C BC #### [facility] [address] [address] [address] Ashlie Hills Triglyceride [Mass/Vol] 183 mg/dL Critically high <=150 [facility] Comment on above: Performed By: #### C BC #### [facility] [address] [address] [address] Ashlie Hills VLDL CALC 36.6 mg/dL Normal [facility] Comment on above: Performed By: #### C BC #### [facility] [address] [address] [address] Ashlie Hills MG MAMM SCREEN 3D ALEX CADon 11-22-2022 MG MAMM SCREEN 3D ALEX CAD Patient: MITZI MACIAS Exam Date: 11/22/2022 : 1970 Gender:F Ordering : SAYDA MCKAYLA [employer] FORMER Admission #: [id number] Family : Order #: [id number] CLICK HERE TO VIEW EXAM RADIOLOGY REPORT [...] Veloz M.D. on 11/22/2022 at 12:09 Normal [facility] PROF 14(COMP METB)on 023 Albumin [Mass/Vol] 3.0 g/dL Critically low 3.4-5.0 Th e [facility] Comment on above: Performed By: #### C BC #### [facility] [address] [address] [address] Ashlie Hills Albumin/Globulin [Mass ratio] 0.6 {ratio} Normal [facility] Comment on above: Performed By: #### C BC #### [facility] [address] [address] [address] Ashlie Hills ALP [Catalytic activity/Vol] 68 U/L Normal 46-116 [facility] Comment on above: Performed By: #### C BC #### [facility] [address] [address] [address] Ashlie Hills ALT [Catalytic activity/Vol] 14 U/L Normal 14-59 [facility] Comment on above: Performed By: #### C BC #### [facility] [address] [address] [address] Ashlie Hills Anion gap [Moles/Vol] 12.1 mmol/L Normal Th [facility] Comment on above: Performed By: #### C BC #### [facility] [address] [address] [address] Ashlei Hills AST [Catalytic activity/Vol] 9 U/L Critically low 15-37 [facility] Comment on above: Performed By: #### C BC #### [facility] [address] [address] [address] Ashlie Hills Bilirubin [Mass/Vol] 0.4 mg/dL Normal 0.2-1.0 [facility] Comment on above: Performed By: #### C BC #### [facility] [address] [address] [address] Ashlie Hills Calcium [Mass/Vol] 9.0 mg/dL Normal 8.5-10.1 [facility] Comment on above: Performed By: #### C BC #### [facility] [address] [address] [address] Ashlie Hills Chloride [Moles/Vol] 105 mmol/L Normal 98-107 [facility] Comment on above: Performed By: #### C BC #### [facility] [address] [address] [address] Ashlie Hills CO2 [Moles/Vol] 30.7 mmol/L Normal 21.0-32.0 [facility] Comment on above: Performed By: #### C BC #### [facility] [address] [address] [address] Ashlie Hills Creatinine [Mass/Vol] 0.77 mg/dL Normal 0.55-1.02 [facility] Comment on above: Performed By: #### C BC #### [facility] [address] [address] [address] Ashlie Hills EGFR-AF INDONESIAN >60 Normal >=60 [facility] Comment on above: Performed By: #### C BC #### [facility] [address] [address] [address] Ashlie Hills EGFR-NON AF INDONESIAN >60 Normal >=60 [facility] Comment on above: Performed By: #### C BC #### [facility] [address] [address] [address] Ashlie Hills Globulin (S) [Mass/Vol] 4.8 g/dL Normal [facility] Comment on above: Performed By: #### C BC #### [facility] [address] [place] [address] Dr. Ashlie Hills Glucose [Mass/Vol] 162 mg/dL Critically high 74-106 [facility] Comment on above: Performed By: #### C BC #### [facility] [address] [address] [address] Ashlie Hills Potassium [Moles/Vol] 3.8 mmol/L Normal 3.5-5.1 [facility] Comment on above: Performed By: #### C BC #### [facility] [address] [address] [address] Ashlie Hills Protein [Mass/Vol] 7.8 g/dL Normal 6.4-8.2 [facility] Comment on above: Performed By: #### C BC #### [facility] [address] [address] [address] Ashlie Hills Sodium [Moles/Vol] 144 mmol/L Normal 136-145 [facility] Comment on above: Performed By: #### C BC #### [facility] [address] [address] [address] Ashlie Hills Urea nitrogen [Mass/Vol] 24.0 mg/dL Critically high 7.0-18 .0 [facility] Comment on above: Performed By: #### C BC #### [facility] [address] [place] [address] Dr. Ashlie Hills Urea nitrogen/Creatinine [Mass ratio] 31.2 mg/mg Normal [facility] Comment on above: Performed By: #### C BC #### [facility] [address] [place] [address] Dr. Ashlie Hills CBC AUTO DIFFon 10-05-2022 BASO # 0.1 103/ul Normal 0.0-0.1 [facility] Comment on above: Performed By: #### C BC #### [facility] [address] [place] [address] Dr. Ashlie Hills Basophils/100 WBC (Bld) 0.6 % Normal 0.2-2.0 [facility] Comment on above: Performed By: #### C BC #### [facility] [address] [place] [address] Dr. Ashlie Hills EO # 0.3 103/ul Normal 0.0-0.7 [facility] Comment on above: Performed By: #### C BC #### [facility] [address] [place] [address] Dr. Ashlie Hills Eosinophils/100 WBC (Bld) 2.1 % Normal 0.9-7.0 [facility] Comment on above: Performed By: #### C BC #### [facility] [address] [place] [address] Dr. Ashlie Hills Erythrocyte distribution width (RBC) [Ratio] 15.9 % Critically high 11.0-15.0 [facility] Comment on above: Performed By: #### C BC #### [facility] [address] [place] [address] Dr. Ashlie Hills Hematocrit (Bld) [Volume fraction] 51.8 % Critically high 36.0-48.0 [facility] Comment on above: Performed By: #### C BC #### [facility] [address] [place] [address] Dr. Ashlie Hills Hemoglobin (Bld) [Mass/Vol] 16.6 g/dL Critically high 12.0-16.0 [facility] Comment on above: Performed By: #### C BC #### [facility] [address] [place] [address] Dr. Ashlie Hills IG # 0.03 10e3/ul Normal 0.00-0.03 [facility] Comment on above: Performed By: #### C BC #### [facility] [address] [place] [address] Dr. Ashlie Hills IG % 0.2 % Normal 0.0-0.5 [facility] Comment on above: Performed By: #### C BC #### [facility] [address] [place] [address] Dr. Ashlie Hills LYMPH # 3.9 103/ul Critically high 1.2-3.8 [facility] Comment on above: Performed By: #### C BC #### [facility] [address] [place] [address] Dr. Ashlie Hills Lymphocytes/100 WBC (Bld) 31.7 % Normal 20.5-60.0 [facility] Comment on above: Performed By: #### C BC #### [facility] [address] [place] [address] Dr. Ashlie Hills MANUAL DIFF REQ NO Normal [facility] Comment on above: Performed By: #### C BC #### [facility] [address] [place] [address] Dr. Ashlie Hills MCH (RBC) [Entitic mass] 27.9 pg Normal 26.7-34.0 [facility] Comment on above: Performed By: #### C BC #### [facility] [address] [place] [address] Dr. Ashlie Hills MCHC (RBC) [Mass/Vol] 32.0 g/dL Normal 29.9-35.2 [facility] Comment on above: Performed By: #### C BC #### [facility] [address] [place] [address] Dr. Ashlie Hills MCV (RBC) [Entitic vol] 87.1 fL Normal 81.0-99.0 [facility] Comment on above: Performed By: #### C BC #### [facility] [address] [address] [address] Ashlie Hills MONO # 0.7 103/ul Normal 0.3-0.8 [facility] Comment on above: Performed By: #### C BC #### [facility] [address] [address] [address] Ashlie Hills Monocytes/100 WBC (Bld) 5.8 % Normal 1.7-12.0 [facility] Comment on above: Performed By: #### C BC #### [facility] [address] [address] [address] Ashlie Hills NEUT # 7.3 103/ul Critically high 1.4-6.5 [facility] Comment on above: Performed By: #### C BC #### [facility] [address] [place] [address] Dr. Ashlie Hills Neutrophils/100 WBC (Bld) 59.6 % Normal 43.0-75.0 [facility] Comment on above: Performed By: #### C BC #### [facility] [address] [place] [address] Dr. Ashlie Hills Platelet mean volume (Bld) [Entitic vol] 11.7 fL Normal 9.5-13.5 [facility] Comment on above: Performed By: #### C BC #### [facility] [address] [place] [address] Dr. Ashlie Hills PLT 117 103/ul Critically low 150-450 [facility] Comment on above: Performed By: #### C BC #### [facility] [address] [address] [address] Ashlie Hills RBC 5.95 106/ul Critically high 4.20-5.40 [facility] Comment on above: Performed By: #### C BC #### [facility] [address] [place] [address] Dr. Ashlie Hills WBC 12.3 103/ul Critically high 4.0-11.0 [facility] Comment on above: Performed By: #### C BC #### [facility] [address] [address] [address] ABD/PELV W CONon [...] Bilirubin Ql (U) Negative Normal NEGATIVE [facility] Comment on above: Performed By: #### P OCGLUC #### [facility] [address] [address] [address] Ashlie Hills Clarity (U) CLEAR Normal CLEAR [facility] Comment on above: Performed By: #### P OCGLUC #### [facility] [address] [address] [address] Ashlie Hills Color (U) YELLOW Normal YELLOW [facility] Comment on above: Performed By: #### P OCGLUC #### [facility] [address] [address] [address] Ashlie Hills ERUAHD A micrscopic examination will be performed if indicated. Normal [facility] Comment on above: Performed By: #### P OCGLUC #### [facility] [address] [address] [address] Ashlie Hills Glucose Ql (U) Negative Normal NEGATIVE [facility] Comment on above: Performed By: #### P OCGLUC #### [facility] [address] [address] [address] Ashlie Hills Hemoglobin Ql (U) Negative Normal NEGATIVE [facility] Comment on above: Performed By: #### P OCGLUC #### [facility] [address] [address] [address] Ashlie Hills Ketones Ql (U) Negative Normal NEGATIVE [facility] Comment on above: Performed By: #### P OCGLUC #### [facility] [address] [place] [address] Dr. Ashlie Hills LEUKOCYTES Negative Normal NEGATIVE [facility] Comment on above: Performed By: #### P OCGLUC #### [facility] [address] [address] [address] Ashlie Hills Nitrite Ql (U) Negative Normal NEGATIVE [facility] Comment on above: Performed By: #### P OCGLUC #### [facility] [address] [place] [address] Dr. Ashlie Hills pH (U) 6.0 [pH] Normal 5-9 [facility] Comment on above: Performed By: #### P OCGLUC #### [facility] [address] [place] [address] Dr. Ashlie Hills Protein (U) [Mass/Vol] 100 mg/dL Abnormal NEGAT YURY/ TRACE [facility] Comment on above: Performed By: #### P OCGLUC #### [facility] [address] [place] [address] Dr. Ashlie Hills SPEC GRAVITY 1.010 Normal 1.005-<=1.02 5 [facility] Comment on above: Performed By: #### P OCGLUC #### [facility] [address] [place] [address] Dr. Ashlie Hills UR MICRO IND INDICATED Normal [facility] Comment on above: Performed By: #### P OCGLUC #### [facility] [address] [place] [address] Dr. Ashlie Hills Urobilinogen Qn (U) 1.0 {Littel'U}/dL Normal 0.2 - 1. 0 [facility] Comment on above: Performed By: #### P OCGLUC #### [facility] [address] [place] [address] Dr. Ashlie Hills LIPASEon 10-05-2022 Lipase [Catalytic activity/Vol] 1771.0 U/L Critically high 73.0-393.0 [facility] Comment on above: Performed By: #### C BC #### [facility] [address] [place] [address] Dr. Ashlie Hills PREG HCG QUALon 10-05-2022 , QUAL Negative Normal NEGATIVE [facility] Comment on above: Performed By: #### P OCGLUC #### [facility] [address] [place] [address] Dr. Ashlie Hills PROF 14(COMP METB)on 023 Albumin [Mass/Vol] 3.2 g/dL Critically low 3.4-5.0 [facility] Comment on above: Performed By: #### C BC #### [facility] [address] [place] [address] Dr. Ashlie Hills Albumin/Globulin [Mass ratio] 0.7 {ratio} Normal [facility] Comment on above: Performed By: #### C BC #### [facility] [address] [place] [address] Dr. Ashlie Hills ALP [Catalytic activity/Vol] 70 U/L Normal 46-116 [facility] Comment on above: Performed By: #### C BC #### [facility] [address] [place] [address] Dr. Ashlie Hills ALT [Catalytic activity/Vol] 11 U/L Critically low 14-59 [facility] Comment on above: Performed By: #### C BC #### [facility] [address] [place] [address] Dr. Ashlie Hills Anion gap [Moles/Vol] 10.3 mmol/L Normal [facility] Comment on above: Performed By: #### C BC #### [facility] [address] [address] [address] Ashlie Hills AST [Catalytic activity/Vol] 11 U/L Critically low 15-37 [facility] Comment on above: Performed By: #### C BC #### [facility] [address] [address] [address] Ashlie Hills Bilirubin [Mass/Vol] 0.9 mg/dL Normal 0.2-1.0 [facility] Comment on above: Performed By: #### C BC #### [facility] [address] [address] [address] Ashlie Hills Calcium [Mass/Vol] 9.3 mg/dL Normal 8.5-10.1 [facility] Comment on above: Performed By: #### C BC #### [facility] [address] [address] [address] Ashlie Hills Chloride [Moles/Vol] 105 mmol/L Normal 98-107 [facility] Comment on above: Performed By: #### C BC #### [facility] [address] [address] [address] Ashlie Hills CO2 [Moles/Vol] 30.6 mmol/L Normal 21.0-32.0 [facility] Comment on above: Performed By: #### C BC #### [facility] [address] [address] [address] Ashlie Hills Creatinine [Mass/Vol] 0.62 mg/dL Normal 0.55-1.02 [facility] Comment on above: Performed By: #### C BC #### [facility] [address] [address] [address] Ashlie Hills EGFR-AF INDONESIAN >60 Normal >=60 [facility] Comment on above: Performed By: #### C BC #### [facility] [address] [address] [address] Ashlie Hills EGFR-NON AF INDONESIAN >60 Normal >=60 [facility] Comment on above: Performed By: #### C BC #### [facility] [address] [address] [address] Ashlie Hills Globulin (S) [Mass/Vol] 4.6 g/dL Normal T [facility] Comment on above: Performed By: #### C BC #### [facility] [address] [address] [address] Ashlie Hills Glucose [Mass/Vol] 85 mg/dL Normal 74-106 [facility] Comment on above: Performed By: #### C BC #### [facility] [address] [place] [address] Dr. Ashlie Hills Potassium [Moles/Vol] 3.9 mmol/L Normal 3.5-5.1 [facility] Comment on above: Performed By: #### C BC #### [facility] [address] [place] [address] Dr. Ashlie Hills Protein [Mass/Vol] 7.8 g/dL Normal 6.4-8.2 [facility] Comment on above: Performed By: #### C BC #### [facility] [address] [place] [address] Dr. Ashlie Hills Sodium [Moles/Vol] 142 mmol/L Normal 136-145 [facility] Comment on above: Performed By: #### C BC #### [facility] [address] [place] [address] Dr. Ashlie Hills Urea nitrogen [Mass/Vol] 12.0 mg/dL Normal 7.0-18.0 [facility] Comment on above: Performed By: #### C BC #### [facility] [address] [place] [address] Dr. Ashlie Hills Urea nitrogen/Creatinine [Mass ratio] 19.4 mg/mg Normal [facility] Comment on above: Performed By: #### C BC #### [facility] [address] [place] [address] Dr. Ashlie Hills URINE MICROSCOPIC ONLYon BACTERIA TRACE Abnormal NONE SEEN [facility] Comment on above: Performed By: #### P OCGLUC #### [facility] [address] [place] [address] Dr. Ashlie Hills Bacteria identified Cx Nom (U) NOT INDICATED Normal [facility] Comment on above: Performed By: #### P OCGLUC #### [facility] [address] [place] [address] Dr. Ashlie Hills CAST NONE SEEN Normal NONE SEEN The [facility] Comment on above: Performed By: #### P OCGLUC #### [facility] [address] [place] [address] Dr. Ashlie Hills Crystals LM Nom (Urine sed) NONE SEEN Normal NONE SEEN [facility] Comment on above: Performed By: #### P OCGLUC #### [facility] [address] [place] [address] Dr. Ashlie Hills Epithelial cells LM Ql (Urine sed) MODERATE Abnormal NONE SEEN /RARE [facility] Comment on above: Performed By: #### P OCGLUC #### [facility] [address] [place] [address] Dr. Ashlie Hills MUCOUS NONE SEEN Normal NONE SEEN The [facility] Comment on above: Performed By: #### P OCGLUC #### [facility] [address] [place] [address] Dr. Ashlie Hills RBC 0-2 Normal 0-2 [facility] Comment on above: Performed By: #### P OCGLUC #### [facility] [address] [place] [address] Dr. Ashlie Hills WBC 0-2 Abnormal NONE SEEN The [facility] Comment on above: Performed By: #### P OCGLUC #### [facility] [address] [place] [address] Dr. Ashlie Hills Covid-19 PCR (CVDTBH)on 09-06 [...] for this test is supported by the Population Geneticist of Health and Human Service's declaration that [...] [facility] [address] [place] [address] Dr. Ashlie Hills INFLUENZA A AND B AGon 09-21 [facility] Normal [facility] Comment on above: Result Comment: Nega tive for Flu A protein angiten. Infection due to Flu A cannot be ruled out. Flu A angiten in the sample may be below the detection limit of the test. Performed By: #### I NFLUAB #### [facility] [address] [place] [address] Dr. Ashlie Hills INFLUBNEGH SEE BELOW Normal [facility] Comment on above: Result Comment: Nega tive for Flu B protein antigen. Infection due to Flu B cannot be ruled out. Flu B antigen in the sample may be below the detection limit of the test. Performed By: #### I NFLUAB #### [facility] [address] [place] [address] Dr. Ashlie Hills INFLUENZA A AG Negative Normal NEGATIVE SEE COMMENT [facility] Comment on above: Performed By: #### I NFLUAB #### [facility] [address] [place] [address] Dr. Ashlie Hills INFLUENZA B AG Negative Normal NEGATIVE SEE COMMENT [facility] Comment on above: Performed By: #### I NFLUAB #### [facility] [address] [place] [address] ABD/PELV W CONon [...] to at least 10/21/2018, unchanged. https://www.ncbi.nlm .nih.gov/pmc/article s/[email or web address]/ Electronically authenticated by: COLLIN HUERTAS Date: 2022-07-27 14:56 Normal [facility] CREATININEon 07-18-2022 Creatinine [Mass/Vol] 0.81 mg/dL Normal 0.55-1.02 [facility] Comment on above: Performed By: #### C BC #### [facility] [address] [place] [address] Dr. Ashlie Hills EGFR-AF INDONESIAN >60 Normal >=60 [facility] Comment on above: Performed By: #### C BC #### [facility] [address] [place] [address] Dr. Ashlie Hills EGFR-NON AF INDONESIAN >60 Normal >=60 [facility] Comment on above: Performed By: #### C BC #### [facility] [address] [place] [address] LOW EXT W [...] [facility])on 06-09 SARS-CoV-2 (COVID-19) RNA MADDY+probe Ql (Unsp [...] for this test is supported by the Population Geneticist of Health and Human Service's (HHS's) declaration [...] [facility] [address] [place] [address] Dr. Ashlie Hills INFLUENZA A AND B AGon 07-06 [facility] SEE BELOW Normal [facility] Comment on above: Result Comment: Nega tive for Flu A protein angiten. Infection due to Flu A cannot be ruled out. Flu A angiten in the sample may be below the detection limit of the test. Performed By: #### C BC #### [facility] [address] [place] [address] Dr. Ashlie Hills [facility] SEE BELOW Normal [facility] Comment on above: Result Comment: Nega tive for Flu B protein antigen. Infection due to Flu B cannot be ruled out. Flu B antigen in the sample may be below the detection limit of the test. Performed By: #### C BC #### [facility] [address] [place] [address] Dr. Ashlie Hills INFLUENZA A AG Negative Normal NEGATIVE SEE COMMENT [facility] Comment on above: Performed By: #### C BC #### [facility] [address] [place] [address] Dr. Ashlie Hills INFLUENZA B AG Negative Normal NEGATIVE SEE COMMENT [facility] Comment on above: Performed By: #### C BC #### [facility] [address] [place] [address] Dr. Ashlie Hills POINT OF CARE GLUCOSEon 04-08 Glucose [Mass/Vol] 108 mg/dL Critically high 74-106 T [facility] Comment on above: Performed By: #### C BC #### [facility] [address] [place] [address] Dr. Ashlie Hilsl RAGHU by IFAon 03-07-2022 Antinuclear Antibodies, IFA Negative Normal [facility] Comment on above: Result Comment: Nega tive <1:80 Borderline 1:80 Positive >1:80 ICAP nomenclature: AC-0 For more information about Hep-2 cell patterns use ANApatterns.org, the official website for the International Consensus on Antinuclear Antibody (RAGHU) Patterns (ICAP). Performed By: #### A NAIFA #### [facility] [address] [address] [address] Ashlie Hills IMMUNOFIXATION (TREVON), URINEo n 03-07-2022 TREVON Interpretation:U Comment Normal [facility] Comment on above: Result Comment: No m onoclonality detected. Performed By: #### C BC #### [facility] [address] [place] [address] Dr. Ashlie Hills IMMUNOFIXATION(TREVON),PROTEIN ELEC(PE),FREon 03-07-2022 Albumin [Mass/Vol] 3.0 g/dL Normal 2.9-4.4 [facility] Comment on above: Performed By: #### I NFLUAB #### [facility] [address] [place] [address] Dr. Ashlie Hills Albumin/Globulin [Mass ratio] 0.8 {ratio} Normal 0.7-1.7 [facility] Comment on above: Performed By: #### I NFLUAB #### [facility] [address] [place] [address] Dr. Ashlie Hills Bvbqv-9-Rpmgzsaw 0.3 g/dL Normal 0.0-0.4 [facility] Comment on above: Performed By: #### I NFLUAB #### [facility] [address] [place] [address] Dr. Ashlie Hills Efwgw-1-Ppeuqbqy 1.0 g/dL Normal 0.4-1.0 [facility] Comment on above: Performed By: #### I NFLUAB #### [facility] [address] [place] [address] Dr. Ashlie Hills Beta Globulin 1.8 g/dL Critically high 0.7-1.3 [facility] Comment on above: Performed By: #### I NFLUAB #### [facility] [address] [place] [address] Dr. Ashlie Hills Free Vernonia Lt Chains,S 45.2 mg/L Critically high 3.3-19.4 [facility] Comment on above: Performed By: #### I NFLUAB #### [facility] [address] [address] [address] Ashlie Hills Free Lambda Lt Chains,S 40.3 mg/L Critically high 5.7-26. 3 [facility] Comment on above: Performed By: #### I NFLUAB #### [facility] [address] [address] [address] Ashlie [place] Gamma Globulin 0.8 g/dL Normal 0.4-1.8 [facility] Comment on above: Performed By: #### I NFLUAB #### [facility] [address] [address] [address] Ashlie [place] Globulin (S) [Mass/Vol] 3.9 g/dL Normal 2.2-3.9 [facility] Comment on above: Performed By: #### I NFLUAB #### [facility] [address] [place] [address] Dr. Ashlie Hills Immunofixation Result, Serum Comment Normal [facility] Comment on above: Result Comment: No m onoclonality detected. Performed By: #### I NFLUAB #### [facility] [address] [address] [address] Ashlie [place] Immunoglobulin A, Qn, Serum 776 mg/dL Critically high 87-352 [facility] Comment on above: Performed By: #### I NFLUAB #### [facility] [address] [address] [address] Ashlie [place] Immunoglobulin G, Qn, Serum 955 mg/dL Normal 586-1602 [facility] Comment on above: Performed By: #### I NFLUAB #### [facility] [address] [address] [address] [place] Immunoglobulin M, Qn, Serum 39 mg/dL Normal 26-217 [facility] Comment on above: Performed By: #### I NFLUAB #### [facility] [address] [address] [address] Ashlie Hills Vernonia/Lambda Ratio, S 1.12 Normal 0.26-1.65 [facility] Comment on above: Performed By: #### I NFLUAB #### [facility] [address] [place] [address] Dr. Ashlie Hills M-Bright Not Observed Normal Not Observed [facility] Comment on above: Performed By: #### I NFLUAB #### [facility] [address] [place] [address] Dr. Ashlie Hills PDF . Normal [facility] Comment on above: Performed By: #### I NFLUAB #### [facility] [address] [place] [address] Dr. Ashlie [place] Please note: Comment Normal [facility] Comment on above: Result Comment: Prot ein electrophoresis scan will follow via computer, mail, or backend java developer delivery. Performed By: #### I NFLUAB #### [facility] [address] [place] [address] Dr. Ashlie [place] Protein [Mass/Vol] 6.9 g/dL Normal 6.0-8.5 [facility] Comment on above: Performed By: #### I NFLUAB #### [facility] [address] [place] [address] Dr. Ashlie Hills C-PEPTIDE, SERUMon 2 C-Peptide, Serum 3.1 ng/mL Normal 1.1-4.4 [facility] Comment on above: Result Comment: C-Pe ptide reference interval is for fasting patients. Performed By: #### C PEPT #### [facility] [address] [place] [address] Dr. Ashlie Hills HEP B SURFACE ANTIGEN SCREEN on 03-04-2022 HBsAg Screen Negative Normal Negative [facility] Comment on above: Performed By: #### C BC #### [facility] [address] [place] [address] Dr. Ashlie Hills HEPATITIS C VIRUS AB W/ REFL EX QUANTon 03-04-2022 HCV AB <0.1 Normal 0.0-0.9 [facility] Comment on above: Performed By: #### I NFLUAB #### [facility] [address] [place] [address] Dr. Ashlie [place] Interpretation: Comment Normal [facility] Comment on above: Result Comment: Nega tive Not infected with HCV, unless recent infection is suspected or other evidence exists to indicate HCV infection. Performed By: #### I NFLUAB #### [facility] [address] [address] [address] Ashlie Hills MICROALBUMIN/ CREATININE RAT IOon 03-04-2022 Albumin, Urine 367.4 ug/mL Normal Not Estab. [facility] Comment on above: Performed By: #### C BC #### [facility] [address] [address] [address] Ashlie [place] Albumin/ Creatinine Ratio 239 mg/g creat Critically high 0-29 [facility] Comment on above: Result Comment: Norm al: 0 - 29 Moderately increased: 30 - 300 Severely increased: >300 Performed By: #### C BC #### [facility] [address] [address] [address] Ashlie [place] Creatinine, Urine 153.9 mg/dL Normal Not Estab. The [facility] Comment on above: Performed By: #### C BC #### [facility] [address] [address] [address] Ashlie [place] VIT D 25-OH LABCORPon 2021 Vitamin D, 25-Hydroxy <4.0 Critically low 30.0-100.0 [facility] Comment on above: Result Comment: Graciela min D deficiency has been defined by the [place] of [employer] and an Endocrine Society practice guideline as a level of serum 25-OH vitamin D less than 20 ng/mL (1,2). The Endocrine Society went on to further define vitamin D insufficiency as a level between 21 and 29 ng/mL (2). 1. IOM ([place] of [employer]). 2010. Dietary reference intakes for calcium and D. [place]: The National Academies Press. 2. Lynda STAHL, Keely OLIVEROS, Leandra LOPEZ, et al. Evaluation, treatment, and prevention of vitamin D deficiency: an Endocrine Society clinical practice guideline. JCEM. 2010; 96(7):1911-30. Performed By: #### C BC #### [facility] [address] [place] [address] Dr. Ashlie Hills GLYCOHEMOGLOBIN A1Con 2021 ADA RECOMMENDATION SEE BELOW Normal [facility] Comment on above: Result Comment: ADA RECOMMENDED LIMIT 4.0 - 6.0 ADA THERAPEUTIC TARGET < 7.0 ACTION SUGGESTED > 7.0 Performed By: #### C VDAGS #### [facility] [address] [place] [address] Dr. Ashlie Hills Glucose [Mass/Vol] 295 mg/dL Normal [facility] Comment on above: Performed By: #### C VDAGS #### [facility] [address] [place] [address] Dr. Ashlie Hills HbA1c (Bld) [Mass fraction] 11.9 % Critically high 4.5-6.2 [facility] Comment on above: Performed By: #### C VDAGS #### [facility] [address] [place] [address] Dr. Ashlie Hills HEMOGRAM AND PLATELon 2021 Hematocrit (Bld) [Volume fraction] 56.3 % Critically high 36.0-48.0 [facility] Comment on above: Performed By: #### C VDAGS #### [facility] [address] [place] [address] Dr. Ashlie Hills Hemoglobin (Bld) [Mass/Vol] 18.0 g/dL Critically high 12.0-16.0 [facility] Comment on above: Performed By: #### C VDAGS #### [facility] [address] [place] [address] Dr. Ashlie Hills MCH (RBC) [Entitic mass] 29.5 pg Normal 26.7-34.0 [facility] Comment on above: Performed By: #### C VDAGS #### [facility] [address] [place] [address] Dr. Ashlie Hills MCHC (RBC) [Mass/Vol] 32.0 g/dL Normal 29.9-35.2 [facility] Comment on above: Performed By: #### C VDAGS #### [facility] [address] [place] [address] Dr. Ashlie Hills MCV (RBC) [Entitic vol] 92.1 fL Normal 81.0-99.0 [facility] Comment on above: Performed By: #### C VDAGS #### [facility] [address] [address] [address] Ashlie Hills PLT 123 103/ul Critically low 150-450 [facility] Comment on above: Performed By: #### C VDAGS #### [facility] [address] [place] [address] Dr. Ashlie Hills RBC 6.11 106/ul Critically high 4.20-5.40 [facility] Comment on above: Performed By: #### C VDAGS #### [facility] [address] [place] [address] Dr. Ashlie Hills WBC 16.4 103/ul Critically high 4.0-11.0 [facility] Comment on above: Performed By: #### C VDAGS #### [facility] [address] [place] [address] Dr. Ashlie Hills LIPID PROFILEon 03-03-2022 CHOL-HDL RATIO NORM SEE BELOW Normal [facility] Comment on above: Result Comment: 3.3 - 4.4 LOW RISK 4.4 - 7.1 AVERAGE RISK 7.1 - 11.0 MODERATE RISK >11.0 HIGH RISK Performed By: #### C VDAGS #### [facility] [address] [place] [address] Dr. Ashlie Hills Cholesterol [Mass/Vol] 159 mg/dL Normal <=200 [facility] Comment on above: Performed By: #### C VDAGS #### [facility] [address] [place] [address] Dr. Ashlie Hills Cholesterol in HDL [Mass/Vol] 40 mg/dL Normal 40-60 [facility] Comment on above: Performed By: #### C VDAGS #### [facility] [address] [place] [address] Dr. Ashlie Hills Cholesterol in LDL [Mass/Vol] 81.8 mg/dL Normal [facility] Comment on above: Performed By: #### C VDAGS #### [facility] [address] [address] [address] Ashlie Hills Cholesterol.total/Choles terol in HDL [Mass ratio] 4.0 {ratio} Normal [facility] Comment on above: Performed By: #### C VDAGS #### [facility] [address] [address] [address] Ashlie Hills HDL NORMAL > or = 60 mg/dl - LOW CARDIOVASCULAR RISK <40 mg/dl - HIGH CARDIOVASCULAR RISK Normal [facility] Comment on above: Performed By: #### C VDAGS #### [facility] [address] [address] [address] Ashlie Hills LDL CALC NORMAL SEE BELOW Normal [facility] Comment on above: Result Comment: <100 mg/dl OPTIMAL 100 - 129 mg/dl NEAR OR ABOVE OPTIMAL 130 - 159 mg/dl BORDERLINE HIGH 160 - 189 mg/dl HIGH >190 mg/dl VERY HIGH Performed By: #### C VDAGS #### [facility] [address] [address] [address] Ashlie Hills Triglyceride [Mass/Vol] 186 mg/dL Critically high <=150 [facility] Comment on above: Performed By: #### C VDAGS #### [facility] [address] [address] [address] Ashlie Hills VLDL CALC 37.2 mg/dL Normal [facility] Comment on above: Performed By: #### C VDAGS #### [facility] [address] [address] [address] Ashlie Hills RENAL FUNCTION PANELon 03-03 Albumin [Mass/Vol] 3.1 g/dL Critically low 3.4-5.0 [facility] Comment on above: Performed By: #### C BC #### [facility] [address] [address] [address] Ashlie Hills Calcium [Mass/Vol] 9.2 mg/dL Normal 8.5-10.1 [facility] Comment on above: Performed By: #### C BC #### [facility] [address] [address] [address] Ashlie Hills Chloride [Moles/Vol] 102 mmol/L Normal 98-107 [facility] Comment on above: Performed By: #### C BC #### [facility] [address] [place] [address] Dr. Ashlie Hills CO2 [Moles/Vol] 31.9 mmol/L Normal 21.0-32.0 [facility] Comment on above: Performed By: #### C BC #### [facility] [address] [place] [address] Dr. Ashlie Hills Creatinine [Mass/Vol] 0.68 mg/dL Normal 0.55-1.02 [facility] Comment on above: Performed By: #### C BC #### [facility] [address] [place] [address] Dr. Ashlie Hills EGFR-AF INDONESIAN >60 Normal >=60 [facility] Comment on above: Performed By: #### C BC #### [facility] [address] [place] [address] Dr. Ashlie Hills EGFR-NON AF INDONESIAN >60 Normal >=60 [facility] Comment on above: Performed By: #### C BC #### [facility] [address] [place] [address] Dr. Ashlie Hills Glucose [Mass/Vol] 131 mg/dL Critically high 74-106 T [facility] Comment on above: Performed By: #### C BC #### [facility] [address] [place] [address] Dr. Ashlie Hills Phosphate [Mass/Vol] 4.0 mg/dL Normal 2.6-4.7 [facility] Comment on above: Performed By: #### C BC #### [facility] [address] [place] [address] Dr. Ashlie Hills Potassium [Moles/Vol] 4.0 mmol/L Normal 3.5-5.1 [facility] Comment on above: Performed By: #### C BC #### [facility] [address] [place] [address] Dr. Ashlie Hills Sodium [Moles/Vol] 141 mmol/L Normal 136-145 [facility] Comment on above: Performed By: #### C BC #### [facility] [address] [place] [address] Dr. Ashlie Hills Urea nitrogen [Mass/Vol] 17.0 mg/dL Normal 7.0-18.0 [facility] Comment on above: Performed By: #### C BC #### [facility] [address] [place] [address] Dr. Ashlie Hills UA RANDOM W/MICROSCOPICon BACTERIA NONE SEEN Normal NONE SEEN [facility] Comment on above: Performed By: #### I NFLUAB #### [facility] [address] [place] [address] Dr. Ashlie Hills Bilirubin Ql (U) Negative Normal NEGATIVE [facility] Comment on above: Performed By: #### I NFLUAB #### [facility] [address] [place] [address] Dr. Ashlie Hills CAST NONE SEEN Normal NONE SEEN [facility] Comment on above: Performed By: #### I NFLUAB #### [facility] [address] [place] [address] Dr. Ashlie Hills Clarity (U) CLEAR Normal CLEAR [facility] Comment on above: Performed By: #### I NFLUAB #### [facility] [address] [place] [address] Dr. Ashlie Hills Color (U) YELLOW Normal YELLOW [facility] Comment on above: Performed By: #### I NFLUAB #### [facility] [address] [place] [address] Dr. Ashlie Hills Crystals LM Nom (Urine sed) NONE SEEN Normal NONE SEEN [facility] Comment on above: Performed By: #### I NFLUAB #### [facility] [address] [place] [address] Dr. Ashlie Hills Epithelial cells LM Ql (Urine sed) FEW Abnormal NONE SEEN /RARE [facility] Comment on above: Performed By: #### I NFLUAB #### [facility] [address] [place] [address] Dr. Ashlie Hills Glucose Ql (U) Negative Normal NEGATIVE [facility] Comment on above: Performed By: #### I NFLUAB #### [facility] [address] [place] [address] Dr. Ashlie Hills Hemoglobin Ql (U) Negative Normal NEGATIVE [facility] Comment on above: Performed By: #### I NFLUAB #### [facility] [address] [place] [address] Dr. Ashlie Hills Ketones Ql (U) Negative Normal NEGATIVE [facility] Comment on above: Performed By: #### I NFLUAB #### [facility] [address] [place] [address] Dr. Ashlie Hills LEUKOCYTES Negative Normal NEGATIVE [facility] Comment on above: Performed By: #### I NFLUAB #### [facility] [address] [place] [address] Dr. Ashlie Hills MUCOUS NONE SEEN Normal NONE SEEN [facility] Comment on above: Performed By: #### I NFLUAB #### [facility] [address] [place] [address] Dr. Ashlie Hills Nitrite Ql (U) Negative Normal NEGATIVE [facility] Comment on above: Performed By: #### I NFLUAB #### [facility] [address] [place] [address] Dr. Ashlie Hills pH (U) 5.5 [pH] Normal 5-9 [facility] Comment on above: Performed By: #### I NFLUAB #### [facility] [address] [place] [address] Dr. Ashlie Hills RBC 0-2 Normal 0-2 [facility] Comment on above: Performed By: #### I NFLUAB #### [facility] [address] [place] [address] Dr. Ashlie Hills SPEC GRAVITY >=1.030 Abnormal 1.005-<=1.02 5 [facility] Comment on above: Performed By: #### I NFLUAB #### [facility] [address] [place] [address] Dr. Ashlie Hills UA PROTEIN 100 mg/dl Abnormal NEGATIVE/ TRACE [facility] Comment on above: Performed By: #### I NFLUAB #### [facility] [address] [place] [address] Dr. Ashlie Hills Urobilinogen Qn (U) 0.2 {Little'U}/dL Normal 0.2 - 1. 0 [facility] Comment on above: Performed By: #### I NFLUAB #### [facility] [address] [place] [address] Dr. Ashlie Hills WBC NONE SEEN Normal NONE SEEN [facility] Comment on above: Performed By: #### I NFLUAB #### [facility] [address] [place] [address] Dr. Ashlie Hills URIC ACID SERUMon 03-03-2022 Urate [Mass/Vol] 5.0 mg/dL Normal 2.6-6.0 [facility] Comment on above: Performed By: #### I NFLUAB #### [facility] [address] [place] [address] Dr. Ashlie Hills URINE T PROTEIN CREAT RATIOo n 03-03-2022 Protein (U) [Mass/Vol] 77.9 mg/dL Critically high <=12.0 [facility] Comment on above: Performed By: #### C VDAGS #### [facility] [address] [place] [address] Dr. Ashlie Hills UR PROT CREAT RAT 0.44 Normal [facility] Comment on above: Performed By: #### C VDAGS #### [facility] [address] [place] [address] Dr. Ashlie Hills URINE CREAT 175.15 mg/dL Normal 20.00-300.00 [facility] Comment on above: Performed By: #### C VDAGS #### [facility] [address] [place] [address] Dr. Ashlie Hills CULTURE URINEon 12-25-2021 CULTURE URINE Culture Observations: GREATER THAN TWO ORGANISMS PRESENT, HEAVILY MIXED. PLEASE RESUBMIT CLEAN CATCH MID-STREAM URINE IF CLINICALLY INDICATED. Normal [facility] Comment on above: Performed By: #### I NFLUAB #### [facility] [address] [address] [address] Ashlie Hills CBC AUTO DIFFon 12-24-2021 BASO # 0.1 103/ul Normal 0.0-0.1 [facility] Comment on above: Performed By: #### C BC #### [facility] [address] [address] [address] Ashlie Hills Basophils/100 WBC (Bld) 0.5 % Normal 0.2-2.0 [facility] Comment on above: Performed By: #### C BC #### [facility] [address] [place] [address] Dr. Ashlie Hills EO # 0.4 103/ul Normal 0.0-0.7 [facility] Comment on above: Performed By: #### C BC #### [facility] [address] [place] [address] Dr. Ashlie Hills Eosinophils/100 WBC (Bld) 2.4 % Normal 0.9-7.0 [facility] Comment on above: Performed By: #### C BC #### [facility] [address] [place] [address] Dr. Ashlie Hills Erythrocyte distribution width (RBC) [Ratio] 14.1 % Normal 11.0-15.0 [facility] Comment on above: Performed By: #### C BC #### [facility] [address] [place] [address] Dr. Ashlie Hills Hematocrit (Bld) [Volume fraction] 55.9 % Critically high 36.0-48.0 [facility] Comment on above: Performed By: #### C BC #### [facility] [address] [place] [address] Dr. Ashlie Hills Hemoglobin (Bld) [Mass/Vol] 17.9 g/dL Critically high 12.0-16.0 [facility] Comment on above: Performed By: #### C BC #### [facility] [address] [place] [address] Dr. Ashlie Hills IG # 0.06 10e3/ul Critically high 0.00-0.03 [facility] Comment on above: Performed By: #### C BC #### [facility] [address] [place] [address] Dr. Ashlie Hills IG % 0.4 % Normal 0.0-0.5 [facility] Comment on above: Performed By: #### C BC #### [facility] [address] [place] [address] Dr. Ashlie Hills LYMPH # 5.8 103/ul Critically high 1.2-3.8 [facility] Comment on above: Performed By: #### C BC #### [facility] [address] [place] [address] Dr. Ashlie Hills Lymphocytes/100 WBC (Bld) 35.4 % Normal 20.5-60.0 [facility] Comment on above: Performed By: #### C BC #### [facility] [address] [place] [address] Dr. Ashlie Hills MANUAL DIFF REQ NO Normal [facility] Comment on above: Performed By: #### C BC #### [facility] [address] [place] [address] Dr. Ashlie Hills MCH (RBC) [Entitic mass] 29.4 pg Normal 26.7-34.0 [facility] Comment on above: Performed By: #### C BC #### [facility] [address] [place] [address] Dr. Ashlie Hills MCHC (RBC) [Mass/Vol] 32.0 g/dL Normal 29.9-35.2 [facility] Comment on above: Performed By: #### C BC #### [facility] [address] [place] [address] Dr. Ashlie Hills MCV (RBC) [Entitic vol] 91.8 fL Normal 81.0-99.0 [facility] Comment on above: Performed By: #### C BC #### [facility] [address] [place] [address] Dr. Ashlie Hills MONO # 0.8 103/ul Normal 0.3-0.8 [facility] Comment on above: Performed By: #### C BC #### [facility] [address] [address] [address] Ashlie Hills Monocytes/100 WBC (Bld) 4.8 % Normal 1.7-12.0 [facility] Comment on above: Performed By: #### C BC #### [facility] [address] [address] [address] Ashlie Hills NEUT # 9.3 103/ul Critically high 1.4-6.5 [facility] Comment on above: Performed By: #### C BC #### [facility] [address] [address] [address] Ashlie Hills Neutrophils/100 WBC (Bld) 56.5 % Normal 43.0-75.0 [facility] Comment on above: Performed By: #### C BC #### [facility] [address] [address] [address] Ashlie Hills Platelet mean volume (Bld) [Entitic vol] 12.9 fL Normal 9.5-13.5 [facility] Comment on above: Performed By: #### C BC #### [facility] [address] [address] [address] Ashlie Hills PLT 127 103/ul Critically low 150-450 [facility] Comment on above: Performed By: #### C BC #### [facility] [address] [address] [address] Ashlie Hills RBC 6.09 106/ul Critically high 4.20-5.40 [facility] Comment on above: Performed By: #### C BC #### [facility] [address] [address] [address] Ashlie Hills WBC 16.4 103/ul Critically high 4.0-11.0 [facility] Comment on above: Performed By: #### C BC #### [facility] [address] [address] [address] ABD/PELVIS WO CONon [...] Bilirubin Ql (U) Negative Normal NEGATIVE [facility] Comment on above: Performed By: #### E NURA UMICRO #### [facility] [address] [address] [address] Ashlie Hills Clarity (U) CLEAR Normal CLEAR [facility] Comment on above: Performed By: #### E NURA UMICRO #### [facility] [address] [address] [address] Ashlie Hills Color (U) DK. ORANGE Abnormal YELLOW [facility] Comment on above: Performed By: #### E NURA UMICRO #### [facility] [address] [place] [address] Dr. Ashlie HOBBS A micrscopic examination will be performed if indicated. Normal [facility] Comment on above: Performed By: #### Tracey LYMAN UMICRO #### [facility] [address] [address] [address] Ashlie Hills Glucose Ql (U) 250 mg/dl Abnormal NEGATIVE [facility] Comment on above: Performed By: #### Tracey LYMAN UMICRO #### [facility] [address] [address] [address] Ashlie Hills Hemoglobin Ql (U) Negative Normal NEGATIVE [facility] Comment on above: Performed By: #### Tracey LYMAN UMICRO #### [facility] [address] [address] [address] Ashlie Hills Ketones Ql (U) Negative Normal NEGATIVE [facility] Comment on above: Performed By: #### Tracey LYMAN UMICRO #### [facility] [address] [address] [address] Ashlie Hills LEUKOCYTES Negative Normal NEGATIVE [facility] Comment on above: Performed By: #### Tracey LYMAN UMICRO #### [facility] [address] [place] [address] Dr. Ashlie Hills Nitrite Ql (U) Negative Normal NEGATIVE [facility] Comment on above: Performed By: #### EVONNE DIAZ #### [facility] [address] [place] [address] Dr. Ashlie Hills pH (U) 5.0 [pH] Normal 5-9 [facility] Comment on above: Performed By: #### EVONNE DIAZ #### [facility] [address] [place] [address] Dr. Ashlie Hills Protein (U) [Mass/Vol] 100 mg/dL Abnormal NEGAT YURY/ TRACE [facility] Comment on above: Performed By: #### EVONNE DIAZ #### [facility] [address] [place] [address] Dr. Ashlie Hills SPEC GRAVITY >=1.030 Abnormal 1.005-<=1.02 5 [facility] Comment on above: Performed By: #### EVONNE DIAZ #### [facility] [address] [place] [address] Dr. Ashlie Hills UR MICRO IND INDICATED Normal [facility] Comment on above: Performed By: #### EVONNE DIAZ #### [facility] [address] [place] [address] Dr. Ashlie Hills Urobilinogen Qn (U) 1.0 {Little'U}/dL Normal 0.2 - 1. 0 [facility] Comment on above: Performed By: #### EVONNE DIAZ #### [facility] [address] [place] [address] Dr. Ashlie Hills PROF CHEM 8 (BAS METB)on Anion gap [Moles/Vol] 12.1 mmol/L Normal [facility] Comment on above: Performed By: #### I NFLUAB #### [facility] [address] [place] [address] Dr. Ashlie Hills Calcium [Mass/Vol] 9.0 mg/dL Normal 8.5-10.1 [facility] Comment on above: Performed By: #### I NFLUAB #### [facility] [address] [address] [address] Ashlie Hills Chloride [Moles/Vol] 101 mmol/L Normal 98-107 [facility] Comment on above: Performed By: #### I NFLUAB #### [facility] [address] [address] [address] Ashlie Hills CO2 [Moles/Vol] 29.1 mmol/L Normal 21.0-32.0 [facility] Comment on above: Performed By: #### I NFLUAB #### [facility] [address] [address] [address] Ashlie Hills Creatinine [Mass/Vol] 0.86 mg/dL Normal 0.55-1.02 [facility] Comment on above: Performed By: #### I NFLUAB #### [facility] [address] [address] [address] Ashlie Hills EGFR-AF INDONESIAN >60 Normal >=60 [facility] [facility] Comment on above: Performed By: #### I NFLUAB #### [facility] [address] [address] [address] Ashlie Hills EGFR-NON AF INDONESIAN >60 Normal >=60 [facility] Comment on above: Performed By: #### I NFLUAB #### [facility] [address] [address] [address] Ashlie Hills Glucose [Mass/Vol] 236 mg/dL Critically high 74-106 [facility] Comment on above: Performed By: #### I NFLUAB #### [facility] [address] [address] [address] Ashlie Hills Potassium [Moles/Vol] 4.2 mmol/L Normal 3.5-5.1 [facility] Comment on above: Performed By: #### I NFLUAB #### [facility] [address] [address] [address] Ashlie Hills Sodium [Moles/Vol] 138 mmol/L Normal 136-145 [facility] Comment on above: Performed By: #### I NFLUAB #### [facility] [address] [place] [address] Dr. Ashlie Hills Urea nitrogen [Mass/Vol] 11.0 mg/dL Normal 7.0-18.0 [facility] Comment on above: Performed By: #### I NFLUAB #### [facility] [address] [place] [address] Dr. Ashlie iHlls Urea nitrogen/Creatinine [Mass ratio] 12.8 mg/mg Normal [facility] Comment on above: Performed By: #### I NFLUAB #### [facility] [address] [place] [address] Dr. Ashlie Hills URINE MICROSCOPIC ONLYon BACTERIA SMALL Abnormal NONE SEEN [facility] Comment on above: Performed By: #### Tracey LYMAN UMICRO #### [facility] [address] [place] [address] Dr. Ashlie Hills Bacteria identified Cx Nom (U) INDICATED Normal [facility] Comment on above: Performed By: #### Tracey LYMAN UMICRO #### [facility] [address] [place] [address] Dr. Ashlie Hills CAST NONE SEEN Normal NONE SEEN [facility] Comment on above: Performed By: #### Tracey LYMAN UMICRO #### [facility] [address] [place] [address] Dr. Ashlie Hills Crystals LM Nom (Urine sed) NONE SEEN Normal NONE SEEN [facility] Comment on above: Performed By: #### Tracey LYMAN UMICRO #### [facility] [address] [place] [address] Dr. Ashlie Hills Epithelial cells LM Ql (Urine sed) MODERATE Abnormal NONE SEEN /RARE [facility] Comment on above: Performed By: #### Tracey LYMAN UMICRO #### [facility] [address] [place] [address] Dr. Ashlie Hills MUCOUS NONE SEEN Normal NONE SEEN [facility] Comment on above: Performed By: #### Tracey LYMAN UMICRO #### [facility] [address] [place] [address] Dr. Ashlie Hills RBC 0-2 Normal 0-2 [facility] Comment on above: Performed By: #### E RUR, UMICRO #### [facility] [address] [address] [address] Ashlie Hills WBC 0-2 Abnormal NONE SEEN [facility] Comment on above: Performed By: #### E RUR, UMICRO #### [facility] [address] [address] [address] Ashlie Hills YEAST PRESENT Abnormal NONE SEEN The [facility] Comment on above: Performed By: #### E RUR, UMICRO #### [facility] [address] [address] [address] Ashlie Hills HIP RIGHT 1 OR 2 VWS WITH PE LVISon 07-20-2020 HIP RIGHT 1 OR 2 VWS WITH PELVIS [facility] Department of Radiology [address] [place] [id number] Patient Name: MITZI MACIAS : 1970 Sex: F Age: Race: White Pt. Location: Patient Status: O Ordered Date: 07/20/2020 1:45:00 PM Completed Date: 07/20/2020 01:57 PM Requesting Provider: LIZ EISENBERG Attending Provider: LIZ EISENBERG Report Copy To: MCKAYLA BLAS Signs & Symptoms: M25.551 Pain in right hip I10 History: [place] Comments: evaluate Exam: HIP RIGHT 1 OR [...] MRI. Electronically signed: Pipo Acevedo. Transcribed by: [email or web address], User Resident: Electronically Signed by: PIPO ACEVEDO @ 07/20/2020 03:45 PM Normal [facility] Comment on above: Order Comment: evalu ate Vital Signs Date Time Vital Sign Value Performing Clinician Facility 04-06-2025 15:37-0400 Body temperature 98.1 [degF] Mckayla Chetz TOP STITCHER-C Work Phone: [facility] 04-06-2025 15:37-0400 Diastolic blood pressure 84 mm[Hg] Mckayla Juanjosehholz TOP STITCHER-C Work Phone: [facility] 04-06-2025 15:37-0400 Heart rate 81 /min Mckayla Aichholz TOP STITCHER-C Work Phone: [facility] 04-06-2025 15:37-0400 Respiratory rate 20 /min Mckayla Juanjosehholz TOP STITCHER-C Work Phone: [facility] 04-06-2025 15:37-0400 SaO2% (BldA) [Mass fraction] 92 % Mckayla Chetz TOP STITCHER-C Work Phone: [facility] 04-06-2025 15:37-0400 Systolic blood pressure 146 mm[Hg] Mckayla Wan TOP STITCHER-C Work Phone: [facility] 01-29-2025 09:48-0400 Body height 170.2 cm Rain Souza MD Work Phone: [facility] 01-29-2025 09:48-0400 Body mass index (BMI) [Ratio] 56.38 kg/m2 Rain Souza MD Work Phone: [facility] 01-29-2025 09:48-0400 Body weight 163.29 kg Rain Souza MD Work Phone: [facility] 01-29-2025 09:48-0400 Diastolic blood pressure 70 mm[Hg] Rain Souza MD Work Phone: [facility] 01-29-2025 09:48-0400 Heart rate 72 /min Rain Souza MD Work Phone: [facility] 01-29-2025 09:48-0400 Respiratory rate 16 /min Rain Souza MD Work Phone: [facility] 01-29-2025 09:48-0400 SaO2% (BldA) [Mass fraction] 84 % Rain Souza MD Work Phone: [facility] 01-29-2025 09:48-0400 Systolic blood pressure 130 mm[Hg] Rain Souza MD Work Phone: [facility] 01-26-2025 18:11-0400 Body mass index (BMI) [Ratio] 58.64 kg/m2 Mckayla Blas TOP STITCHER Work Phone: [facility] 01-26-2025 18:11-0400 Body temperature 98.49 [degF] Mckayla Blas TOP STITCHER Work Phone: [facility] 01-26-2025 18:11-0400 Body weight 169.83 kg Mckayla Wan TOP STITCHER Work Phone: [facility] 01-26-2025 18:11-0400 Diastolic blood pressure 82 mm[Hg] Mckayla Wan TOP STITCHER Work Phone: [facility] 01-26-2025 18:11-0400 Heart rate 81 /min Mckayla Wan TOP STITCHER Work Phone: [facility] 01-26-2025 18:11-0400 Respiratory rate 20 /min Mckayla Wan TOP STITCHER Work Phone: [facility] 01-26-2025 18:11-0400 SaO2% (BldA) [Mass fraction] 90 % Mckaylajuvenal Rosenbergz TOP STITCHER Work Phone: [facility] 01-26-2025 18:11-0400 Systolic blood pressure 126 mm[Hg] Mckayla Harshadholz TOP STITCHER Work Phone: [facility] 12-09-2024 10:19-0400 Body temperature 98.01 [degF] Mckayla Harshadholz TOP STITCHER Work Phone: [facility] 12-09-2024 10:19-0400 Diastolic blood pressure 76 mm[Hg] Mckayla Harshadholz TOP STITCHER Work Phone: [facility] 12-09-2024 10:19-0400 Heart rate 71 /min Mckayla Juanjosecayetanoholz TOP STITCHER Work Phone: [facility] 12-09-2024 10:19-0400 Respiratory rate 20 /min Mckayla Harshadholz TOP STITCHER Work Phone: [facility] 12-09-2024 10:19-0400 SaO2% (BldA) [Mass fraction] 88 % Mckayla Harshadholz TOP STITCHER Work Phone: [facility] 12-09-2024 10:19-0400 Systolic blood pressure 150 mm[Hg] Mckayla Juanjosecayetanoholz TOP STITCHER Work Phone: [facility] 10-27-2024 14:11-0400 Body height 170.2 cm Mckayla Harshadholz TOP STITCHER Work Phone: [facility] 10-27-2024 14:11-0400 Body mass index (BMI) [Ratio] 56.51 kg/m2 Mckayla Juanjosecayetanoholz TOP STITCHER Work Phone: [facility] 10-27-2024 14:11-0400 Body temperature 98.71 [degF] Mckayla Juanjosecayetanoholz TOP STITCHER Work Phone: [facility] 10-27-2024 14:11-0400 Body weight 163.66 kg Mckayla Harshadholz TOP STITCHER Work Phone: [facility] 10-27-2024 14:11-0400 Diastolic blood pressure 74 mm[Hg] Mckayla Blas TOP STITCHER Work Phone: [facility] 10-27-2024 14:11-0400 Heart rate 75 /min Mckayla Blas TOP STITCHER Work Phone: [facility] 10-27-2024 14:11-0400 Respiratory rate 18 /min Mckayla Blas TOP STITCHER Work Phone: [facility] 10-27-2024 14:11-0400 SaO2% (BldA) [Mass fraction] 90 % Mckayla Blas TOP STITCHER Work Phone: [facility] 10-27-2024 14:11-0400 Systolic blood pressure 132 mm[Hg] Mckayla Blas TOP STITCHER Work Phone: [facility] 10-08-2024 11:21-0400 Body height 170.2 cm Rain Souza MD Work Phone: [facility] 10-08-2024 11:21-0400 Body mass index (BMI) [Ratio] 55.91 kg/m2 Rain Souza MD Work Phone: [facility] 10-08-2024 11:21-0400 Body weight 161.93 kg Rain Souza MD Work Phone: [facility] 10-08-2024 11:21-0400 Diastolic blood pressure 70 mm[Hg] Rain Souza MD Work Phone: [facility] 10-08-2024 11:21-0400 Heart rate 70 /min Rain Souza MD Work Phone: [facility] 10-08-2024 11:21-0400 Respiratory rate 16 /min Rain Souza MD Work Phone: [facility] 10-08-2024 11:21-0400 SaO2% (BldA) [Mass fraction] 91 % Rain Souza MD Work Phone: [facility] 10-08-2024 11:21-0400 Systolic blood pressure 130 mm[Hg] Rain Souza MD Work Phone: [facility] 08-27-2024 17:44-0500 Body mass index (BMI) [Ratio] 57.31 kg/m2 Mckayla Aichholz TOP STITCHER Work Phone: [facility] 08-27-2024 17:44-0500 Body temperature 98.01 [degF] Mckayla Aichholz TOP STITCHER Work Phone: [facility] 08-27-2024 17:44-0500 Body weight 165.97 kg Mckayla Aichholz TOP STITCHER Work Phone: [facility] 08-27-2024 17:44-0500 Diastolic blood pressure 76 mm[Hg] Mckayla Aichholz TOP STITCHER Work Phone: [facility] 08-27-2024 17:44-0500 Heart rate 83 /min Mckayla Aichholz TOP STITCHER Work Phone: [facility] 08-27-2024 17:44-0500 Respiratory rate 18 /min Mckayla Aichholz TOP STITCHER Work Phone: [facility] 08-27-2024 17:44-0500 SaO2% (BldA) [Mass fraction] 91 % Mckalya Aichholz TOP STITCHER Work Phone: [facility] 08-27-2024 17:44-0500 Systolic blood pressure 134 mm[Hg] Mckayla Harshadholz TOP STITCHER Work Phone: [facility] 06-11-2024 10:00-0500 Blood Pressure Location Elbert ARAUZ [facility] 06-11-2024 10:00-0500 Diastolic blood pressure 68 mm[Hg] Elbert ARAUZ [facility] 06-11-2024 10:00-0500 Heart rate 76 /min Elbert ARAUZ [facility] 06-11-2024 10:00-0500 Systolic blood pressure 132 mm[Hg] Elbert ARAUZ [facility] 05-27-2024 10:20-0500 Body height 170.2 cm Rain Souza MD Work Phone: [facility] 05-27-2024 10:20-0500 Body mass index (BMI) [Ratio] 56.7 kg/m2 aRin Souza MD Work Phone: [facility] 05-27-2024 10:20-0500 Body weight 164.2 kg Rain Souza MD Work Phone: [facility] 05-27-2024 10:20-0500 Diastolic blood pressure 66 mm[Hg] Rain Souza MD Work Phone: [facility] 05-27-2024 10:20-0500 Heart rate 72 /min Rain Souza MD Work Phone: [facility] 05-27-2024 10:20-0500 Respiratory rate 16 /min Rain Souza MD Work Phone: [facility] 05-27-2024 10:20-0500 Systolic blood pressure 128 mm[Hg] Rain Souza MD Work Phone: [facility] 04-14-2024 10:27-0400 Body height 165.1 cm Mckayla Blas TOP STITCHER Work Phone: [facility] 04-14-2024 10:27-0400 Body mass index (BMI) [Ratio] 61.01 kg/m2 Mckayla Blas TOP STITCHER Work Phone: [facility] 04-14-2024 10:27-0400 Body temperature 98.49 [degF] Mckayla Blas TOP STITCHER Work Phone: [facility] 04-14-2024 10:27-0400 Body weight 166.29 kg Mckayla Blas TOP STITCHER Work Phone: [facility] 04-14-2024 10:27-0400 Diastolic blood pressure 80 mm[Hg] Mckayla Rosenbergz TOP STITCHER Work Phone: [facility] 04-14-2024 10:27-0400 Heart rate 77 /min Mckayla Blas TOP STITCHER Work Phone: [facility] 04-14-2024 10:27-0400 Respiratory rate 19 /min Mckayla Blas TOP STITCHER Work Phone: [facility] 04-14-2024 10:27-0400 SaO2% (BldA) [Mass fraction] 92 % Mckayla Blas TOP STITCHER Work Phone: [facility] 04-14-2024 10:27-0400 Systolic blood pressure 116 mm[Hg] Mckayla Blas TOP STITCHER Work Phone: [facility] 03-08-2022 15:00-0400 Body height 170.18 cm Stephanie Tico Other [place] Other 03-08-2022 15:00-0400 Body temperature 97.6 [degF] Stephanie Tico Other [place] Other 03-08-2022 15:00-0400 Diastolic blood pressure 72 mm[Hg] Stephanie Tico Other [place] Other 03-08-2022 15:00-0400 Respiratory rate 20 /min Stephanie Tico Other [place] Other 03-08-2022 15:00-0400 SaO2% (BldA) [Mass fraction] 91 % Stephanie Tico Other [place] Other 03-08-2022 15:00-0400 Systolic blood pressure 131 mm[Hg] Stephanie Tico Other [place] Other 02-20-2022 09:20-0400 Body height 170.18 cm Stephanie Tico Other [place] Other 02-20-2022 09:20-0400 Body temperature 96.5 [degF] Stephanie Tico Other [place] Other 02-20-2022 09:20-0400 Diastolic blood pressure 69 mm[Hg] Stephanie Tico Other [place] Other 02-20-2022 09:20-0400 Respiratory rate 20 /min Stephanie Tico Other [place] Other 02-20-2022 09:20-0400 SaO2% (BldA) [Mass fraction] 91 % Stephanie Tico Other [place] Other 02-20-2022 09:20-0400 Systolic blood pressure 129 mm[Hg] Stephanie Tico Other [place] Other 02-06-2022 10:24-0400 Blood Pressure Location Elbert ARAUZ [facility] 02-06-2022 10:24-0400 Diastolic blood pressure 76 mm[Hg] Elbert ARAUZ [facility] 02-06-2022 10:24-0400 Heart rate 70 /min Elbert ARAUZ [facility] 02-06-2022 10:24-0400 Respiratory rate 16 /min Elbert ARAUZ [facility] [place] 02-06-2022 10:24-0400 Systolic blood pressure 134 mm[Hg] [facility] Encounter Date Encounter Type Care Provider Facility Start: 04-23-2025 End: 04-23-2025 ambulatory Corinne Kellogg MD Facility:[facility] Start: 04-17-2025 End: 04-17-2025 ambulatory Omero Nas Bob Facility:[facility] Start: 04-06-2025 End: 04-06-2025 ambulatory Mckayla Blas TOP STITCHER-C Work Phone: [facility] Work Phone: Start: 04-06-2025 End: 04-06-2025 Patient encounter procedure Mckayla Blas TOP STITCHER-C -[facility] Work Phone: Start: 04-01-2025 Patient encounter procedure Mckayla Blas TOP STITCHER-C Work Phone: [facility] Start: 03-26-2025 Non-patient / Non-visit Flynn BAEZM -[facility] Work Phone: Start: 03-25-2025 Non-patient / Non-visit Price Ramsey DO -[facility] Work Phone: Start: 03-24-2025 ambulatory Omero Nas Bob Facil ity:[facility] Start: 03-23-2025 End: 03-23-2025 ambulatory Omero Nas Bob Facility:[facility] Start: 03-11-2025 End: 03-11-2025 ambulatory [facility] DPM [facility] Start: 03-09-2025 End: 03-09-2025 Refill Mckayla Blas NP Work Phone: [facility] Comment on above: Tobacco user; Encounter for smoking cessation counseling Start: 01-29-2025 End: 01-29-2025 Bamboo flowsheet Rain Souza MD Work Phone: [facility] Start: 01-29-2025 End: 01-29-2025 Bamboo flowsheet Rain Souza MD Work Phone: [facility] Start: 01-29-2025 End: 01-29-2025 Clinisync Result Encounter Generic External Data Provider [facility] External Department Unsolicited Start: 01-29-2025 End: 01-29-2025 ambulatory RAIN SOUZA Not Available Start: 01-29-2025 End: 01-29-2025 Office outpatient visit 25 minutes Rain Souza MD Work Phone: [facility] Comment on above: Encounter for dietar y consultation (Primary Dx); Type 2 diabetes mellitus with hyperglycemia, with long-term current use of insulin ([facility]); Vitamin D deficiency; Primary hypertension ; Insulin long-term use ([facility]); Hyperlipemia, mixed ; Microalbuminuria; Class 3 severe obesity due to excess calories with serious comorbidity and body mass index (BMI) of 50.0 to 59.9 in adult ([facility]-H[facility]) Start: 01-26-2025 End: 01-26-2025 ambulatory MCKAYLA WAN Not Available Start: 01-26-2025 End: 01-26-2025 Patient encounter procedure Mckayla Blas NP Work Phone: [facility] Comment on above: Encounter for subseq uent [...] calories (CMS-HCC) Start: 01-06-2025 End: 01-06-2025 ambulatory [facility] Start: 12-18-2024 End: 12-19-2024 Refill Mckayla Blas NP Work Phone: [facility] Comment on above: Hyperlipidemia, unsp ecified ; Tobacco user; Encounter for smoking cessation counseling Start: 12-09-2024 End: 12-09-2024 Bamboo flowsheet Mckayla Blas TOP STITCHER Work Phone: [facility] Start: 12-09-2024 End: 12-09-2024 Bamboo flowsheet Mckayla Blas TOP STITCHER Work Phone: [facility] Start: 12-09-2024 End: 12-09-2024 ambulatory MCKAYLA BLAS Not Available Start: 12-09-2024 End: 12-09-2024 Office outpatient visit 25 minutes Mckayla Blas NP Work Phone: [facility] Comment on above: Cellulitis of left l [...] Office outpatient visit 25 minutes Mckayla Blas TOP STITCHER Work Phone: [facility] Comment on above: Primary hypertension ([facility]/HCC) (Primary Dx); Diabetic polyneuropathy associated with type 2 diabetes mellitus ([facility]); Chronic diastolic heart failure ([facility]); Bilateral lower extremity edema; Morbid (severe) obesity due to excess calories ([facility]); Type 2 diabetes mellitus with complication, with long-term current use of insulin ([facility]); Anxiety and depression ([facility]); Cigarette nicotine dependence without complication; Encounter for screening mammogram for malignant neoplasm of breast; Insomnia; Non-seasonal allergic rhinitis, unspecified trigger; Type 2 diabetes mellitus with unspecified complications; Vitamin D deficiency, unspecified; Gastro-esophageal reflux disease without esophagitis; PAD (peripheral artery disease) ([facility]); Gastroesophageal reflux disease, unspecified whether esophagitis present; Venous ulcer of right leg ([facility]) Start: 10-21-2024 End: 10-21-2024 Refill Mckayla Blas NP Work Phone: [facility] Comment on above: Chronic obstructive pulmonary disease, unspecified Start: 10-08-2024 End: 10-08-2024 Clinisync Result Encounter Mckayla Blas NP Work Phone: [facility] External Department Unsolicited Start: 10-08-2024 End: 10-08-2024 Clinisync Result Encounter Mckayla Blas TOP STITCHER Work Phone: [facility] External Department Unsolicited Start: 10-08-2024 End: 10-08-2024 Office outpatient visit 25 minutes Rain Souza MD Work Phone: [facility] Comment on above: Type 2 diabetes asiya itus with hyperglycemia, with long-term current use of insulin ([facility]) (Primary Dx); Encounter for [...] Department Unsolicited Start: 08-08-2024 End: 08-08-2024 ambulatory [facility] Start: 07-17-2024 End: 07-17-2024 Refill Mckayla Blas NP Work Phone: [facility] Start: 07-14-2024 End: 07-14-2024 Office outpatient visit 25 minutes Mckayla Blas NP Work Phone: [facility] Comment on above: Primary hypertension (CMS/HCC) (Primary Dx); Diabetic polyneuropathy associated with type 2 diabetes mellitus (CMS/HCC); Pulmonary emphysema, unspecified emphysema type (CMS/HCC); Critical limb ischemia of right lower extremity (CMS/HCC); PAD (peripheral artery disease) (CMS/HCC); Gastroesophageal reflux disease, unspecified whether esophagitis present; Bilateral lower extremity edema; Venous ulcer of right leg ([facility]/HCC); Type 2 diabetes mellitus with complication, with long-term current use of insulin ([facility]); Tobacco user; Encounter for smoking cessation counseling; Kidney stone; Adrenal mass 1 cm to 4 cm in diameter ([facility]); Radiculopathy, lumbar region; Non-seasonal allergic rhinitis, unspecified trigger; Type 2 diabetes mellitus with unspecified complications ([facility]/HCC) Start: 07-14-2024 End: 07-14-2024 ambulatory MCKAYLA BLAS Not Available Start: 07-05-2024 End: 07-07-2024 Refill Mckayla Blas TOP STITCHER Work Phone: [facility] Comment on above: Bilateral lower extr emity edema Start: 06-11-2024 ambulatory Elbert Mays ty:SHEA Mckee Start: 06-11-2024 End: 06-11-2024 Patient encounter procedure Elbert ARAUZ [facility] [place] Start: 05-27-2024 End: 05-27-2024 Bamboo flowsheet Rain Souza MD Work Phone: [facility] Start: 05-27-2024 End: 05-27-2024 Bamboo flowsheet Rain Souza MD Work Phone: [facility] Start: 05-27-2024 End: 05-27-2024 ambulatory RAIN [...] (BMI) of 50.0 to 59.9 in adult ([facility]/HCC) Start: 05-12-2024 End: 05-12-2024 Clinisync Result Encounter Generic External Data Provider [facility] External Department Unsolicited Start: 05-12-2024 End: 05-12-2024 Clinisync Result Encounter Generic External Data Provider [facility] External Department Unsolicited Start: 05-08-2024 ambulatory SARAH Wilkerson ty:SHEA Villalobos Start: 04-14-2024 End: 04-14-2024 Bamboo flowsheet Mckayla Blas TOP STITCHER Work Phone: [facility] Start: 04-14-2024 End: 04-14-2024 Bamboo flowsheet Mckayla Blas TOP STITCHER Work Phone: [facility] Start: 04-14-2024 End: 04-14-2024 Office outpatient visit 25 minutes Mckayla Blas NP Work Phone: [facility] Comment on above: Primary hypertension (CMS/HCC) (Primary Dx); Insomnia; Type 2 diabetes mellitus with complication, with long-term current use of insulin ([facility]/HCC); Non-seasonal allergic rhinitis, unspecified trigger; Type 2 diabetes mellitus with unspecified complications (CMS/HCC); Anxiety and depression ([facility]/HCC); Gastro-esophageal reflux disease without esophagitis; Edema, unspecified; Edema; Diabetic polyneuropathy associated with type 2 diabetes mellitus (CMS/HCC); Chronic obstructive pulmonary disease, unspecified (CMS/HCC); Pulmonary emphysema, unspecified emphysema type (CMS/HCC); Bilateral lower extremity edema; Tobacco user; Hyperpigmentation of skin Start: 04-14-2024 End: 04-14-2024 ambulatory MCKAYLA AICHHOLZ Not Available Start: 04-05-2024 End: 04-06-2024 Refill Mckayla Aichholz TOP STITCHER Work Phone: [facility] Comment on above: Hyperlipidemia, unsp ecified (CMS/HCC); Bilateral lower extremity edema Vitamin D deficiency , unspecified Start: 01-17-2024 Patient encounter procedure aRin Souza MD Work Phone: [facility] Start: 08-17-2023 Refill Mckayla Aichholz TOP STITCHER Work Phone: [facility] Comment on above: Vaginal yeast infect ion (Primary Dx) Start: 08-14-2023 Refill Mckayla Aichholz TOP STITCHER Work Phone: [facility] Comment on above: Type 2 diabetes asiya itus with unspecified complications (CMS/HCC); Edema, unspecified; Edema Start: 12-05-2022 ambulatory NARENDRANATH LAKSHMIPATHY . Facility:[facility]1 Start: 12-05-2022 End: 12-06-2022 Evaluation and management of inpatient UMBERTO ALONDRA . Facility:[facility] Start: 11-23-2022 End: 11-23-2022 ambulatory HEEL FORMER MCKAYLA AICHHOLZ Facility:[facility] Start: 11-22-2022 End: 11-23-2022 ambulatory HEEL FORMER MCKAYLA AICHHOLZ Facility:[facility] Start: 11-17-2022 End: 11-18-2022 ambulatory SUBHASH GASPAR . Facility:[facility] Start: 11-15-2022 End: 11-15-2022 Patient encounter procedure SARAH VEGA [facility] Start: 10-05-2022 End: 10-05-2022 ambulatory MARIANO DIAB . Facility:[facility]1 Start: 09-21-2022 End: 09-21-2022 ambulatory HEEL FORMER MCKAYLA AICHHOLZ Facility:[facility]1 Start: 09-14-2022 ambulatory RAFAEL Ribrea y:H1 Start: 08-24-2022 End: [address] CHAPARRO MORTENSEN . Facility:[facility]1 Start: 08-21-2022 End: 08-22-2022 ambulatory HATTIE BRODERICK Facility:[facility]1 Start: 07-27-2022 End: 07-28-2022 ambulatory CECILIA BJORNLYTray . Facility:[facility]1 Start: 07-18-2022 End: 07-19-2022 ambulatory CECILIA TAMLYN . Facility:[facility]1 Start: 07-18-2022 End: 07-19-2022 ambulatory HATTIE BRODERICK Facility:[facility]1 Start: 07-06-2022 End: 07-06-2022 ambulatory SAYDA BLAS Facility:[facility]1 Start: 05-11-2022 End: 05-12-2022 ambulatory GIL VALENZUELA . Facility:[facility]1 Start: 04-25-2022 End: 04-25-[address] CHAPARRO MORTENSEN . Facility:[facility]1 Start: 04-20-2022 End: 04-21-2022 ambulatory GIL VALENZUELA . Facility:[facility] Start: 03-08-2022 End: 03-08-2022 ambulatory Stephanie Tico Other [place] Other Start: 03-08-2022 Office outpatient vi sit 15 minutes Stephanie Tico [facility] Start: 03-03-2022 End: 03-04-2022 ambulatory SAYDA BLAS Facility:[facility]1 Start: 02-20-2022 End: 02-20-2022 ambulatory Stephanie Tico Other [place] Other Start: 02-20-2022 Office outpatient ne w 45 minutes Stephanie Tico [facility] Start: 02-06-2022 End: 02-06-2022 Patient encounter procedure Elbert ARAUZ [facility] Start: 01-19-2022 End: 01-20-2022 ambulatory GIL VALENZUELA . Facility:[facility]1 Start: 12-24-2021 End: 12-24-2021 ambulatory OLE RAMIREZ Facility: Start: 08-26-2020 End: 09-10-2020 Patient encounter procedure MARY TAVERAS Facility:[facility] Start: 10-30-2019 End: 10-30-2019 Emergency department patient visit JAMES BENAVIDEZ [facility] Start: 10-30-2019 End: 10-30-2019 Emergency department patient visit James Benavidez [facility] Emergency Department Start: 11-02-2016 Preoperative state Stephanie Tico Other [place] Other Procedures Date Procedure Procedure Detail Performing [...] Rain Souza MD Work Phone: Start: 10-08-2024 [facility] UA (CLEAN/CATCH) MICROSCOPIC IF INDICATE Mckayla Blas TOP STITCHER Work Phone: Start: 08-27-2024 ALL CBC WITH AUTO DIFF Generic External Data Provider Start: 05-27-2024 Gluc bld gluc mntr d ev cleared fda spec home use Rain Souza MD Work Phone: Start: 05-12-2024 [facility] CREATININE Generic External Data Provider Start: 12-14-2023 Mammography Rain urena MD Work Phone: Start: 11-22-2022 Mammography Mckayla clifford TOP STITCHER Work Phone: Start: 10-08-2015 Microscopic observat ion [Identifier] in Cervix by Cyto stain Mckayla Blas NP Work Phone: H/O: hysterectomy Elbert LARA Laparoscopic cholecystectomy Elbert ARAUZ Operative procedure on foot Elbert ARAUZ Plan of Treatment Date Care Activity Detail Author Start: 02-01-2026 End: 02-01-2026 Patient encounter procedure [facility] Start: 01-26-2026 Medicare Annual Wellness (AWV) Medicare Annual Wellness (AWV) [facility] Start: 10-08-2025 Urine screening for protein Diabetes: Urine Protein Screening [facility] Start: 08-03-2025 Screening for malignant neoplasm of colon [facility] Start: 07-14-2025 Glaucoma screening Diabetes: R etinopathy Screening [facility] Start: 05-28-2025 End: 05-28-2025 Patient encounter procedure [facility] Start: 05-13-2025 Glaucoma screening Diabetes: R etinopathy Screening [facility] Start: 05-01-2025 Hemoglobin A1c measurement Diabetes: Hemoglobin A1C [facility] Start: 04-29-2025 End: 04-29-2025 Patient encounter procedure [facility] Start: 03-09-[address] [facility] Start: 01-28-2025 End: 01-28-2025 Patient encounter procedure 01/28/2025 10:50 AM EDT Office Visit [facility] [address] [place] [address] Rain Souza MD [address] [place] [address] [facility] Start: 01-26-2025 End: 01-26-2025 Patient encounter procedure 01/26/2025 6:00 PM EDT Office Visit [facility] [address] [place] [phone] Mckayla Blas NP [address] [place] [address] [facility] Start: 01-16-2025 Medicare Annual Wellness (AWV) Medicare Annual Wellness (AWV) [facility] Start: 01-07-2025 Hemoglobin A1c measurement Diabetes: Hemoglobin A1C [facility] Start: 12-15-2024 End: 12-27-2025 MG Breast - bilateral Screening Bilateral screening mammogram Imaging Routine Encounter for screening mammogram for malignant neoplasm of breast Expected: 12/15/2024 (Approximate), Expires: 12/27/2025 [facility] Work Phone: Comment on above: Expected: 12/15/2024 (Approximate), Expires: 12/27/2025 Start: 12-13-2024 Screening for malignant neoplasm of breast Mammogram [facility] Start: 11-11-2024 Urine screening for protein Diabetes: Urine Protein Screening [facility] Start: 10-27-2024 End: 10-27-2024 Patient encounter procedure 10/27/2024 2:00 PM EDT Office Visit [facility] [address] [place] [phone] Mckayla Blas, SILVANO [address] [place] [phone] [facility] Start: 10-08-2024 End: 10-08-2024 Patient encounter procedure 10/08/2024 11:20 AM EDT Office Visit [facility] [address] [place] [address] Rain Souza MD [address] [place] [address] [facility] Start: 08-27-2024 End: 08-27-2024 Patient encounter procedure 08/27/2024 5:30 PM EST Office Visit [facility] [address] [place] [address] Mckayla Blas, SILVANO [address] [place] [phone] [facility] Start: 08-27-2024 End: 08-27-2025 25-hydroxyvitamin D3 [Mass/volume] in Serum or Plasma Vitamin D 25 hydroxy Lab Routine Vitamin deficiency Expected: 08/27/2024 (Approximate), Expires: 08/27/2025 [facility] Comment on above: Expected: 08/27/2024 (Approximate), Expires: 08/27/2025 Start: 08-27-2024 Hemoglobin A1c measurement Diabetes: Hemoglobin A1C [facility] Start: 08-27-2024 End: 08-27-2025 Hepatic function 2000 panel - Serum or Plasma Hepatic function panel Lab Routine Hyperlipidemia, unspecified (CMS/HCC) Expected: 08/27/2024 (Approximate), Expires: 08/27/2025 [facility] Comment on above: Expected: 08/27/2024 (Approximate), Expires: 08/27/2025 Start: 08-27-2024 End: 08-27-2025 Lipid 1996 panel - Serum or Plasma Lipid panel Lab Routine Mixed hyperlipidemia ([facility]/HCC) Expected: 08/27/2024 (Approximate), Expires: 08/27/2025 [facility] Work Phone: Comment on above: Expected: 08/27/2024 (Approximate), Expires: 08/27/2025 Start: 08-27-2024 End: 08-27-2025 Microalbumin/Creatini ne panel in random Urine Microalbumin / creatinine, urine ratio Lab Routine Primary hypertension ([facility]/HCC) Type 2 diabetes mellitus with complication, with long-term current use of insulin ([facility]) Expected: 08/27/2024 (Approximate), Expires: 08/27/2025 [facility] Comment on above: Expected: 08/27/2024 (Approximate), Expires: 08/27/2025 Start: 08-27-2024 End: 08-27-2025 Urate [Mass/volume] in Serum or Plasma Uric acid Lab Routine Gout, unspecified cause, unspecified chronicity, unspecified site Expected: 08/27/2024 (Approximate), Expires: 08/27/2025 [facility] Comment on above: Expected: 08/27/2024 (Approximate), Expires: 08/27/2025 Start: 08-27-2024 End: 08-27-2025 Urinalysis complete panel - Urine Urinalysis with reflex microscopic (clean catch) Lab Routine Primary hypertension ([facility]) Type 2 diabetes mellitus with complication, with long-term current use of insulin ([facility]) Tobacco user Gout, unspecified cause, unspecified chronicity, unspecified site Expected: 08/27/2024 (Approximate), Expires: 08/27/2025 [facility] Comment on above: Expected: 08/27/2024 (Approximate), Expires: 08/27/2025 Start: 08-26-2024 End: 08-26-2024 Patient encounter procedure 08/26/2024 10:30 AM EST Office Visit [facility] [address] [place] [phone] Rain Souza MD [address] [place] [address] [facility] Start: 07-14-2024 End: 07-14-2024 Patient encounter procedure 07/14/2024 6:30 PM EST Office Visit [facility] [address] [place] [address] Mckayla Blas NP [address] [place] [address] [facility] Start: 07-14-2024 End: 07-14-2024 Patient encounter procedure 07/14/2024 10:10 AM EST Office Visit [facility] [address] [place] [address] Rain Souza MD [address] [place] [address] [facility] Start: 06-06-2024 Influenza vaccination Influenza Vacc ine (#1) [facility] Comment on above: Postponed from 03/09 (Patient Refused) Start: 05-27-2024 End: 05-27-2024 Patient encounter procedure 05/27/2024 9:50 AM EST Office Visit [facility] [address] [place] [address] Rain Souza MD [address] [place] [address] [facility] Start: 05-17-2024 Hemoglobin A1c measurement Diabetes: Hemoglobin A1C [facility] Start: 05-15-2024 End: 05-15-2024 Chart abstracting 05/15/2024 Abstract [facility] [address] [place] [address] Rain Souza MD [address] [place] [address] [facility] Start: 05-15-2024 End: 05-15-2024 Patient encounter procedure 05/15/2024 11:20 AM EST Office Visit [facility] [address] [place] [address] Rani Souza MD [address] [place] [address] [facility] Start: 04-17-2024 End: 04-17-2024 Patient encounter procedure 04/17/2024 3:40 PM EDT Office Visit [facility] [address] [place] [address] Mckayla Bals NP [address] [place] [address] [facility] Start: 04-14-2024 End: 04-14-2024 Patient encounter procedure 04/14/2024 11:00 AM EDT Office Visit [facility] [address] [place] [address] Mckayla Blas, TOP STITCHER [address] [place] [phone] Arrived [facility] Comment on above: Arrived Start: 03-09-2024 Influenza vaccination Influenza Vacc ine (#1) [facility] Start: 02-19-2024 Hemoglobin A1c measurement Diabetes: Hemoglobin A1C [facility] Start: 11-24-2023 Urine screening for protein Diabetes: Urine Protein Screening [facility] Start: 11-23-2023 Screening for malignant neoplasm of breast Mammogram [facility] Start: 10-15-2023 End: 10-15-2023 Patient encounter procedure 10/15/2023 4:30 PM EDT Office Visit [facility] [address] [place] [phone] Mckayla Blas, SILVANO [address] [place] [address] [facility] Start: 08-09-2023 Hemoglobin A1c measurement Diabetes: Hemoglobin A1C [facility] Start: 05-27-2021 Glaucoma screening Diabetes: R etinopathy Screening [facility] Start: 03-09-2020 Influenza vaccination Flu vacc ine (Season Ended) [place], [place] Start: 10-07-2018 Screening for malignant neoplasm of cervix [facility] Start: 2010 Lipid panel Lipid screen [place], [place] Start: 2000 Screening for malignant neoplasm of cervix HPV/Cotest [facility] Start: 1991 Screening for malignant neoplasm of cervix Cervical cancer screen [place], [place] Start: 1989 DTaP/Tdap/Td vaccine (1 - Tdap) DTaP/Tdap/Td vaccine (1 - Tdap) [place], [place] Start: 1985 HIV screening HIV screen [place], [place] Start: 1970 Medicare Annual Wellness (AWV) Medicare Annual Wellness (AWV) [facility] Start: 1970 Screening for malignant neoplasm of colon [facility] BLOOD CULTURE 1 BLOOD CULTURE 1 Lab Routine 12/04/2024 4:44 PM EDT [facility] BLOOD CULTURE 2 BLOOD CULTURE 2 Lab Routine 12/04/2024 5:28 PM EDT [facility] Immunizations Immunization Date Immunization Notes Care Provider Judie lucas 05-18-2023 influenza, injectabl e, quadrivalent, contains preservative Mckayla Blas NP Work Phone: [facility] 05-18-2023 influenza virus vacc ine, unspecified formulation Rain Souza MD Work Phone: [facility] 07-19-2021 SARS-CoV-2 (COVID-19 ) mRNA BNT-162b2 vax [employer] [facility] 10-28-2020 SARS-CoV-2 (COVID-19 ) mRNA BNT-162b2 vax [employer] [facility] 10-08-2020 SARS-CoV-2 (COVID-19 ) mRNA BNT-162b2 vax [employer] [facility] 04-16-2017 influenza virus vacc ine, H5N1, A/ (national stockpile) Mckayla Blas TOP STITCHER Work Phone: [facility] 04-16-2017 influenza virus vacc ine, unspecified formulation Rain Souza MD Work Phone: [facility] 04-16-2017 influenza, unspecifi ed formulation Elbert REGLA [facility] 04-16-2017 pneumococcal polysaccharide vaccine, 23 valent Rain Souza MD Work Phone: [facility] 05-10-2016 influenza virus vacc ine, H5N1, A/ (national stockpile) Mckayla Blas TOP STITCHER Work Phone: [facility] 05-10-2016 influenza virus vacc ine, unspecified formulation Rain Souza MD Work Phone: [facility] 05-10-2016 influenza, unspecifi ed formulation Elbertprince ARAUZ [facility] 05-02-2013 influenza virus vacc ine, whole virus Rain Souza MD Work Phone: [facility] 05-02-2013 influenza, injectabl e, quadrivalent, contains preservative Mckayla Wan TOP STITCHER Work Phone: [facility] 05-02-2013 influenza, whole Elbertprince ARAMBULA [facility] 01-29-1998 measles, mumps and rubella virus vaccine Rain Souza MD Work Phone: [facility] Payers Date Payer Category Payer Unknown [id number] 2023 Medicare (Managed Care) 1.2. [id number] 2023 Private Health Insurance [id number] 2023 Medicare [id number] 2018 Medicaid MEDICAID [facility] [id number] 2018-Present [phone] [address] [place] [address] Medicaid [id number] 2013 Medicare [id number]. [id number]. [id number] 1970 Unknown [id number] 2.16.840.1.049875.3.579.2. 647 1970 Unknown [id number] 2.16.840.1.648713.3.579.2. 593 1970 Unknown [id number] 2.16.840.1.885928.3.579.2. 593 1970 Unknown [id number] 2.16.840.1.753235.3.579.2. 593 1970 Unknown [id number] 2.16.840.1.106063.3.579.2. 593 1970 Unknown [id number] 2.16.840.1.965106.3.579.2. 593 1970 Unknown [id number] 2.16.840.1.311021.3.579.2. 593 1970 Unknown [id number] 2.16.840.1.747754.3.579.2. 593 1970 Unknown [id number] 2.16.840.1.819105.3.579.2. 593 1970 Unknown [id number] 2.16.840.1.947779.3.579.2. 593 1970 Unknown [id number] 2.16.840.1.047044.3.579.2. 593 1970 Unknown [id number] 2.16.840.1.580472.3.579.2. 593 1970 Unknown [id number] 2.16.840.1.554924.3.579.2. 593 1970 Unknown [id number] 2.16.840.1.031085.3.579.2. 593 1970 Unknown [id number] 2.16.840.1.004899.3.579.2. 593 1970 Unknown [id number] 2.16.840.1.299552.3.579.2. 593 1970 Unknown [id number] 2.16.840.1.385035.3.579.2. 593 1970 Unknown [id number] 2.16.840.1.232538.3.579.2. 593 1970 Unknown [id number] 2.16.840.1.750893.3.579.2. 593 1970 Unknown [id number] 2.16.840.1.128653.3.579.2. 593 1970 Unknown [id number] 2.16.840.1.942165.3.579.2. 593 1970 Unknown [id number] 2.16.840.1.908598.3.579.2. 593 1970 Unknown [id number] 2.16.840.1.640880.3.579.2. 593 1970 Unknown [id number] 2.16.840.1.330561.3.579.2. 727 1970 Unknown [id number] 2.16.840.1.135335.3.579.2. 727 1970 Unknown [id number] 2.16.840.1.547457.3.579.2. 1259 1970 Unknown [id number] 2.16.840.1.544705.3.579.2. 1259 1970 Unknown [id number] 2.16.840.1.560361.3.579.2. 1259 1970 Unknown [id number] 2.16.840.1.826397.3.579.2. 1259 1970 Unknown [id number] 2.16.840.1.234461.3.579.2. 1259 1970 Unknown [id number] 2.16.840.1.857209.3.579.2. 1259 1970 Unknown [id number] 2.16.840.1.830551.3.579.2. 1259 1970 Unknown [id number] 2.16.840.1.281082.3.579.2. 1259 1970 Unknown [id number] 2.16.840.1.935699.3.579.2. 1259 1970 Unknown [id number] 2.16.840.1.431947.3.579.2. 196 1970 Unknown [id number] 2.16.840.1.825700.3.579.2. 196 1970 Unknown [id number] 2.16.840.1.802304.3.579.2. 196 1970 Unknown [id number] 2.16.840.1.903562.3.579.2. 196 1970 Unknown [id number] 2.16.840.1.030073.3.579.2. 196 1970 Unknown [id number] 2.16.840.1.993133.3.579.2. 196 1959 Medicaid [id number] 1959 Private Health Insurance [id number] 1959 Unknown [id number] 2.16.840.1.012627.19 Medicare Medicare [id number] Private Health Insurance [facility] [id number] Unknown Regular Auto/Liability [id number] Social History Date Type Detail Facility Start: 02-17-2014 End: 12-13-2017 Tobacco smoking status NHIS Current every day smoker [place], [place] Start: 02-17-1994 History of tobacco use Cigarette Smo ker [place], [place] Start: 02-17-2014 End: 08-26-2024 Cigarettes smoked current (pack per day) - Reported [place], [place] Start: 02-17-2014 Alcohol intake Current drinke r of alcohol (finding) [place] Start: 02-17-2014 Alcohol Comment [facility] [place], [place] Start: 1970 Sex Assigned At Not on file [place], [place] Exposure to SARS-CoV -2 (event) Unable to assess [facility], [place] Start: 02-06-2022 Tobacco smoking status Smoker (junior ng) [facility] Start: 07-10-2023 End: 08-26-2024 Sex Assigned At Female [facility] Start: 11-15-2022 End: 06-11-2024 Tobacco smoking status Heavy tobacco smoker (finding) [facility] Start: 07-10-2023 End: 01-29-2025 Tobacco use and exposure Smokeless tobacco non-user [facility] Start: 07-10-2023 End: 01-29-2025 Alcohol intake Lifetime non-drinker (finding) [facility] Within the last year , have you been afraid of your partner or ex-partner? No [facility] Do you belong to any clubs or organizations such as mosque groups, unions, [employer] or athletic groups, or school groups? Yes [...] your doctor or pharmacy [SILS] Rarely [facility] Sex Female (finding) [facility] Start: 1970 Sex Assigned At Female F [facility] NEGATED: Highlighted row N [facility] Medical Equipment Procedure Code Equipment Code Equipment Origin al Text Equipment Identifier Dates [id number] Start: 01-18-2024 USE TO TEST BLOO D SUGAR 4 TIMES DAILY [id number] Start: 07-07-2024 Functional Status Date Assessment Result Facility 01-26-2025 Patient Health [facility] ionnaire 2 item (PHQ-2) [Reported] [facility] 01-26-2025 Trouble falling or s taying asleep, or sleeping too much Not at all 01/26/2025 4:13 PM EDT Mychart, Generic Not at all [facility] 01-26-2025 Feeling tired or hav ing little energy Not at all 01/26/2025 4:13 PM EDT Mychart, Generic Not at all [facility] 01-26-2025 Poor appetite or overeating Not at all 01/26/2025 4:13 PM EDT Mychart, Generic Not at all [facility] 01-26-2025 Feeling bad about yourself-or that you are a failure or have let yourself or your family down Not at all 01/26/2025 4:13 PM EDT Mychart, Generic Not at all [facility] 01-26-2025 Trouble concentratin g on things, such as reading the newspaper or watching television Not at all 01/26/2025 4:13 PM EDT Mychart, Generic Not at all [facility] 01-26-2025 Moving or speaking s o slowly that other people could have noticed. Or the opposite - being so fidgety or restless that you have been moving around a lot more than usual Not at all 01/26/2025 4:13 PM EDT Mychart, Generic Not at all [facility] 01-26-2025 Thoughts that you wo uld be better off , or of hurting yourself in some way Not at all 01/26/2025 4:13 PM EDT Mychart, Generic Not at all [facility] 06-11-2024 Functional Status N/A [facility] [place] [facility] [address]-10-2023 Functional Status N/A [facility] 02-06-2022 Functional Status N/A [facility] Clinical Notes 01-19-2022 to 02-04-2025 Rain Souza MD - 01/29/2025 9:40 AM Savannah Blas, SILVANO - 01/26/2025 6:46 PM Savannah Blas, SILVANO - 01/26/2025 6:46 PM Savannah Blas, SILVANO [...] Follow-up as planned in 6 months. Thanks! [facility] 01-29-2025 History of Present illness [...] 25 mg, Oral, 2 times daily HYDROcodone-acetaminophen (Shandon) 5-325 MG tablet 1 tablet, 3 times [...] 07/10/2023 Body mass index (BMI) 50.0-59.9, adult ([facility]) Cellulitis of left lower [...] 09/17/2023 Hyperlipidemia 09/17/2023 Hypertension 07/10/2023 Insomnia 09/17/2023 watermaster (current) use of insulin ([facility]) Lower extremity edema 09/17/2023 Mixed hyperlipidemia Morbid (severe) obesity due to excess calories ([facility]) Obstructive sleep apnea 07/10/2023 PAD (peripheral artery disease) 09/17/2023 Pancreatitis ([facility]) 09/17/2023 Pneumonia 09/17/2023 Proteinuria, unspecified [...] (BMI) of 50.0 to 59.9 in adult ([facility]) Diet and exercise reviewed with the patient Follow up in about 4 months (around 06/01/2025). 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 Associated Problem(s): COPD (chronic [...] 25 mg, Oral, 2 times daily HYDROcodone-acetaminophen (Shandon) 5-325 MG tablet 1 tablet, 3 times [...] 09/17/2023 Hyperlipidemia 09/17/2023 Hypertension 07/10/2023 Insomnia 09/17/2023 watermaster (current) use of insulin ([facility]) Lower extremity edema 09/17/2023 Mixed hyperlipidemia Morbid (severe) obesity due to excess calories ([facility]) Obstructive sleep apnea 07/10/2023 PAD (peripheral artery disease) 09/17/2023 Pancreatitis ([facility]) 09/17/2023 Pneumonia 09/17/2023 Proteinuria, unspecified [...] [facility]) Current meds: albuterol, duoneb, 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 Hypertension Please check blood [...] MG tablet Pulmonary hypertension (HCC) Has seen [facility] Cardiology Hyperlipidemia On statin therapy Check [...] Morbid (severe) obesity due to excess calories ([facility]) Discussed with patient their [...] Pulmonary hypertension (HCC) Has seen [facility] Cardiology Associated Problem(s): Hypertension Please check [...] basis documented in this encounter [facility] 01-26-2025 Instructions Mckayla Blas NP - 01/26/2025 6:00 PM EDT Please call the [facility] to schedule your mammogram: [phone]- ext [phone] documented in this encounter [facility] 01-06-2025 Note Cardiovascular Medic ine [facility] SUBJECTIVE Chief Complaint Patient presents with Congestive Heart Failure Hypertension Hyperlipidemia Mitzi Macias is a 54 y.o. female here for follow-up. PMHx: HFpEF, HTN, HLD, DM, longstanding heavy smoker, COPD, DANIEL, morbid obesity HPI 01/06/2025 Since last seen she was admitted to [facility] for AMS on 12/05/2024. She was treated [...] of both lower extremities with ulcer (CMS/HCC) jail current use of inhaled steroid Vitamin D deficiency, unspecified Vitamin deficiency Past Medical History: Diagnosis Date COPD (chronic obstructive pulmonary disease) ([facility]) Diabetes mellitus ([facility]) Hyperlipidemia Hypertension Sleep apnea [...] , Rfl: ergocalciferol (Vitamin D-2) 1.25 MG (55290 Units) capsule, Take 1.25 mg by mouth., [...] and at bedtime., Disp: , Rfl: HYDROcodone-acetaminophen (Shandon) 5-325 mg tablet, TAKE 1 TABLET BY MOUTH THREE TIMES A DAY NEEDED FOR PAIN MUST LAST 30 DAYS, Disp: , Rfl: insulin aspart (NovoLOG) 100 unit/mL (3 mL) injection pen, Novolog Flexpen U-100 Insulin aspart 100 unit/mL (3 mL) subcutaneous, Disp: , Rfl: insulin glargine (Lantus Solostar U-100 Insulin) 100 unit/mL (3 mL) injection pen (more content not included)... [facility] 01-06-2025 Note Patient is here [...] weight gain. Cardiovascular: Positive for leg swelling. [facility] 12-09-2024 History of Present illness [...] bad light. She was ultimately taken to [facility] ER, no tox screen was done that [...] 25 mg, Oral, 2 times daily HYDROcodone-acetaminophen (Shandon) 5-325 MG tablet 1 tablet, 3 times [...] CT Albuminuria 09/17/2023 Angiomyolipoma Anxiety and depression ([facility]) 07/10/2023 Asthma 07/10/2023 Body mass index (BMI) 50.0-59.9, adult ([facility]) Cellulitis of left lower extremity Cervical cancer ([facility]) 09/17/2023 Chronic pain of both knees 09/17/2023 COPD (chronic obstructive pulmonary disease) ([facility]) 07/10/2023 COPD exacerbation ([facility]) 09/17/2023 Decreased functional mobility 09/17/2023 Diabetic neuropathy ([facility]) 07/10/2023 Dietary counseling and surveillance Edema 07/10/2023 Elevated sed rate Elevated WBC count Essential (primary) hypertension ([facility]) GERD (gastroesophageal reflux disease) 09/17/2023 Hyperlipidemia ([facility]) 09/17/2023 Hypertension ([facility]) 07/10/2023 Insomnia 09/17/2023 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 (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 of insulin ([facility]) Lower extremity edema 09/17/2023 Mixed hyperlipidemia ([facility]) Morbid (severe) obesity due to excess calories ([facility]) Obstructive sleep apnea 07/10/2023 PAD (peripheral artery disease) ([facility]) 09/17/2023 Pancreatitis 09/17/2023 Pneumonia 09/17/2023 Proteinuria, unspecified Pulmonary hypertension ([facility]) 09/17/2023 Radiculopathy, lumbar region 09/17/2023 Tobacco user 09/17/2023 Type 2 diabetes mellitus with complication, with long-term current use of insulin ([facility]) 07/10/2023 Unilateral primary osteoarthritis, [...] Problem List Items Addressed This Visit Hypertension (CMS/HCC) Please check blood pressure daily and record DASH diet Limit caffeine Take medication as directed Contact office if chest pain, pressure, dizziness, shortness of breath, swelling legs Recommend slow position changes Current meds: hydralazine, lisinopril, Type 2 diabetes mellitus with complication, with long-term current use of insulin ([facility]) Check blood sugars daily, [...] secondary to her steroids Anxiety and depression ([facility]) Current meds: elavil, duloxtine, COPD exacerbation ([facility]) Recent ER visit for unresponsiveness , found to have fever and elevated WBC Sent home with steroids and atb Breathing is better and she feels back to her normal baseline Does have home O2, she is not wearing this today Pulmonary hypertension ([facility]) Has seen [facility] Cardiology Morbid (severe) obesity due to excess calories ([facility]) Discussed with patient their [...] Pulmonary hypertension (CMS/HCC) Has seen [facility] Cardiology Associated Problem(s): Hypertension (CMS/HCC) Please [...] today documented in this encounter [facility] 12-09-2024 Instructions Mckayla Blas NP - 12/09/2024 10:00 AM EDT Keep appt with wound care today Keep fu with me, sooner if needed documented in this encounter [facility] 10-27-2024 History of Present illness [...] PPI Associated Problem(s): PAD (peripheral artery disease) ([facility]) Asa, statin Quit smoking [...] 25 mg, Oral, 2 times daily HYDROcodone-acetaminophen (Shandon) 5-325 MG tablet 1 tablet, 3 times [...] CT Albuminuria 09/17/2023 Angiomyolipoma Anxiety and depression ([facility]) 07/10/2023 Asthma 07/10/2023 Body mass index (BMI) 50.0-59.9, adult ([facility]) Cellulitis of left lower extremity Cervical cancer ([facility]) 09/17/2023 Chronic pain of both knees 09/17/2023 COPD (chronic obstructive pulmonary disease) ([facility]) 07/10/2023 COPD exacerbation ([facility]) 09/17/2023 Decreased functional mobility 09/17/2023 Diabetic neuropathy ([facility]) 07/10/2023 Dietary counseling and surveillance Edema 07/10/2023 Elevated sed rate Elevated WBC count Essential (primary) hypertension ([facility]) GERD (gastroesophageal reflux disease) 09/17/2023 Hyperlipidemia ([facility]) 09/17/2023 Hypertension ([facility]) 07/10/2023 Insomnia 09/17/2023 jail (current) use of insulin ([facility]) Lower extremity edema 09/17/2023 Mixed hyperlipidemia ([facility]) Morbid (severe) obesity due to excess calories ([facility]) Obstructive sleep apnea 07/10/2023 PAD (peripheral artery disease) ([facility]) 09/17/2023 Pancreatitis 09/17/2023 Pneumonia 09/17/2023 Proteinuria, unspecified Pulmonary hypertension ([facility]) 09/17/2023 Radiculopathy, lumbar region [...] List Items Addressed This Visit Diabetic neuropathy ([facility]) - Primary Continue with cintia hudson mgmt is prescribing OARRS reviewed Fu in 3 months Goal: tighter glucose control, this has been improving, latest A1c is 7.4%!!! Hypertension ([facility]) Please check blood pressure daily and record DASH diet Limit caffeine Take medication as directed Contact office if chest pain, pressure, dizziness, shortness of breath, swelling legs Recommend slow position changes Current meds: hydralazine, lisinopril, Relevant Medications hydrALAZINE (Apresoline) 25 MG tablet lisinopril 20 MG tablet Type 2 diabetes mellitus with complication, with long-term current use of insulin ([facility]) Check blood sugars daily, [...] 81 MG chewable tablet Anxiety and depression ([facility]) Current meds: elavil, duloxtine, [...] Relevant Medications ergocalciferol (Vitamin D2) 1.25 MG (28382 UT) capsule Gastro-esophageal reflux disease without esophagitis [...] Morbid (severe) obesity due to excess calories ([facility]) Discussed with patient their BMI (actual, verses [...] 7.4%!!! documented in this encounter [facility] 10-27-2024 Instructions Mckayla Blas NP - 10/27/2024 2:00 PM EDT No dose changes in meds You will be due for mammogram I will send order to [facility], they should call you to schedule If no call, please call [phone]- ext [phone] documented in this encounter [facility] 10-08-2024 History of Present illness [...] or chew. ergocalciferol (Vitamin D2) 1.25 MG (46895 UT) capsule TAKE 1 CAPSULE BY MOUTH [...] 25 mg, Oral, 2 times daily HYDROcodone-acetaminophen (Shandon) 5-325 MG tablet 1 tablet, 3 times [...] Albuminuria 09/17/2023 Angiomyolipoma Anxiety and depression ([facility]) 07/10/2023 Asthma ([facility]) 07/10/2023 Body mass index (BMI) 50.0-59.9, adult ([facility]) Cellulitis of left lower extremity Cervical cancer ([facility]) 09/17/2023 Chronic pain of both knees 09/17/2023 COPD (chronic obstructive pulmonary disease) ([facility]) 07/10/2023 COPD exacerbation ([facility]) 09/17/2023 Decreased functional mobility 09/17/2023 Diabetic neuropathy ([facility]) 07/10/2023 Dietary counseling and surveillance Edema 07/10/2023 Elevated sed rate Elevated WBC count Essential (primary) hypertension ([facility]) GERD (gastroesophageal reflux disease) 09/17/2023 Hyperlipidemia ([facility]) 09/17/2023 Hypertension ([facility]) 07/10/2023 Insomnia 09/17/2023 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 (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 insulin ([facility]) Lower extremity edema 09/17/2023 Mixed hyperlipidemia ([facility]) Morbid (severe) obesity due to excess calories ([facility]) Obstructive sleep apnea 07/10/2023 PAD (peripheral artery disease) ([facility]) 09/17/2023 Pancreatitis 09/17/2023 Pneumonia 09/17/2023 Proteinuria, unspecified Pulmonary hypertension ([facility]) 09/17/2023 Radiculopathy, lumbar region 09/17/2023 Tobacco user 09/17/2023 Type 2 diabetes mellitus with complication, with long-term current use of insulin [facility] 07/10/2023 Unilateral primary osteoarthritis, [...] 02/07/2025). documented in this encounter [facility] 08-27-2024 History of Present illness [...] or chew. ergocalciferol (Vitamin D2) 1.25 MG (03869 UT) capsule TAKE 1 CAPSULE BY MOUTH [...] 25 mg, Oral, 2 times daily HYDROcodone-acetaminophen (Shandon) 5-325 MG tablet 1 tablet, 3 times [...] CT Albuminuria 09/17/2023 Angiomyolipoma Anxiety and depression ([facility]) 07/10/2023 Asthma ([facility]) 07/10/2023 Body mass index (BMI) 50.0-59.9, adult ([facility]) Cellulitis of left lower extremity Cervical cancer ([facility]) 09/17/2023 Chronic pain of both knees 09/17/2023 COPD (chronic obstructive pulmonary disease) ([facility]) 07/10/2023 COPD exacerbation ([facility]) 09/17/2023 Decreased functional mobility 09/17/2023 Diabetic neuropathy ([facility]) 07/10/2023 Dietary counseling and surveillance Edema 07/10/2023 Elevated sed rate Elevated WBC count Essential (primary) hypertension ([facility]) GERD (gastroesophageal reflux disease) 09/17/2023 Hyperlipidemia ([facility]) 09/17/2023 Hypertension ([facility]) 07/10/2023 Insomnia 09/17/2023 jail (current) use of insulin ([facility]) Lower extremity edema 09/17/2023 Mixed hyperlipidemia ([facility]) Morbid (severe) obesity due to excess calories ([facility]) Obstructive sleep apnea 07/10/2023 PAD (peripheral artery disease) ([facility]) 09/17/2023 Pancreatitis 09/17/2023 Pneumonia 09/17/2023 Proteinuria, unspecified Pulmonary hypertension ([facility] List Items Addressed This Visit Diabetic neuropathy ([facility]) Continue with cintia hudson mgmt is prescribing OARRS reviewed Fu in 3 months Goal: tighter glucose control Hypertension ([facility]) Please check blood pressure daily and [...] complication, with long-term current use of insulin ([facility]) Check blood sugars daily, [...] nicotine patches Associated Problem(s): Anxiety and depression ([facility]) Current meds: elavil, duloxtine, PHQ 9= 5 IRENE 7=3 Current meds: TCA, and duloxetine Associated Problem(s): Type 2 diabetes mellitus with complication, with long-term current use of insulin ([facility]) Check blood sugars daily, [...] Morbid (severe) obesity due to excess calories ([facility]) Discussed with patient their BMI (actual, verses [...] Associated Problem(s): COPD (chronic obstructive pulmonary disease) ([facility]) Follows with verena Needs smoking cessation Current meds: duoneb, albuterol, daliresp, Associated Problem(s): Asthma ([facility]) Current meds: albuterol, 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 year old female patient being seen for follow-up on diastolic heart failure, shortness of breath and hypertension Patient Active Problem List Diagnosis Abdominal pannus Adrenal mass 1 cm to 4 cm in diameter ([facility]) Albuminuria RAGHU positive Anxiety and depression Arthritis Asthma Bilateral lower extremity edema BMI 50.0-59.9, adult ([facility]) Candidiasis of breast Cardiomegaly Cervical cancer ([facility]) Chronic pain of both knees Closed fracture of upper end of humerus Acute respiratory distress syndrome ([facility]) Decreased functional mobility Diabetic neuropathy ([facility]) Easy bruising GERD (gastroesophageal reflux disease) Gout Headache Hyperlipidemia Hypertension Insomnia Kidney stone Left flank pain Mixed incontinence Class 3 severe obesity with serious comorbidity and body mass index (BMI) of 50.0 to 59.9 in adult ([facility]) Non-seasonal allergic rhinitis Obstructive sleep apnea Other chronic pain PAD (peripheral artery disease) ([facility]) Pneumonia Encounter for screening mammogram for malignant neoplasm of breast Pulmonary hypertension ([facility]) Radiculopathy, lumbar region Current smoker Type 2 diabetes mellitus with complication, with long-term current use of insulin ([facility]) Unilateral primary osteoarthritis, right hip Vaginal yeast infection Venous insufficiency Bad odor of urine Critical limb ischemia of right lower extremity ([facility]) Hyperpigmentation of skin 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 2 diabetes mellitus ([facility]) Myelolipoma of adrenal gland Venous ulcer of right leg ([facility]) HPI Patient was has [...] Diagnosis Date COPD (chronic obstructive pulmonary disease) ([facility]) Diabetes mellitus ([facility]) Hyperlipidemia Hypertension Sleep apnea [...] , Rfl: ergocalciferol (Vitamin D-2) 1.25 MG (71945 Units) capsule, Take 1.25 mg by mouth., [...] and at bedtime., Disp: , Rfl: HYDROcodone-acetaminophen (Shandon) 5-325 mg tablet, TAKE 1 TABLET BY [...] TWICE DAILY, Disp: (more content not included)... [facility] 07-14-2024 History of Present illness [...] or chew. ergocalciferol (Vitamin D2) 1.25 MG (05855 UT) capsule TAKE 1 CAPSULE BY MOUTH ONE TIME PER WEEK furosemide (LASIX) 40 mg, Oral, Daily furosemide (LASIX) 20 mg, Oral, Daily PRN, Take in the afternoon as needed hydrALAZINE (APRESOLINE) 25 mg, Oral, 2 times daily HYDROcodone-acetaminophen (Shandon) 5-325 MG tablet 1 tablet, 3 times [...] CT Albuminuria 09/17/2023 Angiomyolipoma Anxiety and depression ([facility]) 07/10/2023 Asthma ([facility]) 07/10/2023 Body mass index (BMI) 50.0-59.9, adult ([facility]) Cellulitis of left lower extremity Cervical cancer ([facility]) 09/17/2023 Chronic pain of both knees 09/17/2023 COPD (chronic obstructive pulmonary disease) ([facility]) 07/10/2023 COPD exacerbation ([facility]) 09/17/2023 Decreased functional mobility 09/17/2023 Diabetic neuropathy ([facility]) 07/10/2023 Dietary counseling and surveillance Edema 07/10/2023 Elevated sed rate Elevated WBC count Essential (primary) hypertension ([facility]) GERD (gastroesophageal reflux disease) 09/17/2023 Hyperlipidemia ([facility]) 09/17/2023 Hypertension ([facility]) 07/10/2023 Insomnia 09/17/2023 watermaster (current) use of insulin ([facility]) Lower extremity edema 09/17/2023 Mixed hyperlipidemia ([facility]) Morbid (severe) obesity due to excess calories ([facility]) Obstructive sleep apnea 07/10/2023 PAD (peripheral artery disease) ([facility]) 09/17/2023 Pancreatitis 09/17/2023 Pneumonia 09/17/2023 Proteinuria, unspecified Pulmonary hypertension ([facility]) 09/17/2023 Radiculopathy, lumbar region 09/17/2023 Tobacco user 09/17/2023 Type 2 diabetes mellitus with complication, with long-term current use of insulin ([facility]) 07/10/2023 Unilateral primary osteoarthritis, [...] List Items Addressed This Visit Diabetic neuropathy ([facility]) Continue with tristan OARRS reviewed Fu in 3 months COPD (chronic obstructive pulmonary disease) ([facility]) Stable at this time, no changes in meds Encouraged smoking cessation Cont with dr Yañez Hypertension ([facility]) - Primary Please check blood pressure daily and record DASH diet Limit caffeine Take medication as directed Contact office if chest pain, pressure, dizziness, shortness of breath, swelling legs Recommend slow position changes Current meds: hydralazine, lisinopril, Type 2 diabetes mellitus with complication, with long-term current use of insulin ([facility]) Check blood sugars [...] take over prescribing PAD (peripheral artery disease) ([facility]) Asa, statin Quit smoking [...] Critical limb ischemia of right lower extremity ([facility]) Saw vascular, does have narrowing in arteries in legs, and thus the wounds not healing At this point they strongly urge to quit smoking or risk limb amputation Cont asa and statin Also good blood pressure and sugar control Venous ulcer of right leg ([facility]) Encounter for smoking cessation counseling Relevant Medications nicotine (Nicoderm, Step 1) 21 MG/24HR patch Other Visit Diagnoses Type 2 diabetes mellitus with unspecified complications ([facility] [facility]) Quitting smokinppd, chantix not [...] complication, with long-term current use of insulin ([facility]) Check blood sugars daily, [...] Associated Problem(s): Diabetic neuropathy (CMS/HCC) Continue with sungangelito KITA reviewed Fu in 3 months documented in this encounter [facility] 06-11-2024 Hospital Discharge instructions Patient [...] require a prescription. You can also purchase mtbs-xef-edgftzj medicines. Medicines may have nicotine in them [...] and encouragement. Call telephone quitlines, such as 0-784-NSCC-NOW, reach out to support groups, or work [...] provider. Document Revised: 06/16/2022 Document Reviewed: 06/16/2022 [employer] Patient Education 2023 [place]. 06/11/2024 10:39:22 Dietary Guidelines to Help Prevent [...] include: ?8 oz (237 mL) of milk, kngxdbq-yydwpmfbyyti-vtpti milk, and calcium-fortifiedfruit juice. Calcium-fortified means that [...] ?Spinach (cooked), rhubarb, beets, sweet potatoes, and Bahamian chard. ?Peanuts. ?Potato chips, kosovan fries, and baked potatoes with skin on. ?Nuts and nut products. ?Chocolate. If you regularly take a diuretic medicine, make sure to eat at least 1 or 2 servings of fruits or vegetables that are high in potassium each day. These include: ?Avocado. ?Banana. ?[place], prune, carrot, or tomato juice. ?Baked potato. [...] magnesium, fish oil, or vitamin B6. Take fyqv-wqs-xjhmhto and prescription medicines only as told by [...] provider. Document Revised: 10/05/2022 Document Reviewed: 10/05/2022 [employer] Patient Education 2023 [place]. Follow Up Care 05/06/2024 08:24:56 With:REGLA PHIPPS, Elbert Joya, URL Address: [facility] [address], [place] [address]- When: Unknown [facility] [place] 05-27-2024 History of Present illness Narrative Mitzi [...] or chew. ergocalciferol (Vitamin D2) 1.25 MG (82435 UT) capsule TAKE 1 CAPSULE BY MOUTH ONE TIME PER WEEK furosemide (LASIX) 20 mg, Oral, Daily PRN, Take in the afternoon as needed furosemide (LASIX) 40 mg, Oral, Daily Glucose Blood (ACCU-CHEK JAQUI PLUS ) 4 times daily hydrALAZINE (APRESOLINE) 25 mg, Oral, 2 times daily HYDROcodone-acetaminophen (Shandon) 5-325 MG tablet 1 tablet, 3 times [...] Albuminuria 09/17/2023 Angiomyolipoma Anxiety and depression ([facility]) 07/10/2023 Asthma ([facility]) 07/10/2023 Body mass index (BMI) 50.0-59.9, adult ([facility]) Cellulitis of left lower extremity Cervical cancer ([facility]) 09/17/2023 Chronic pain of both knees 09/17/2023 COPD (chronic obstructive pulmonary disease) ([facility]) 07/10/2023 COPD exacerbation ([facility]) 09/17/2023 Decreased functional mobility 09/17/2023 Diabetic neuropathy ([facility]) 07/10/2023 Dietary counseling and surveillance Edema 07/10/2023 Elevated sed rate Elevated WBC count GERD (gastroesophageal reflux disease) 09/17/2023 Hyperlipidemia ([facility]) 09/17/2023 Hypertension ([facility]) 07/10/2023 Insomnia 09/17/2023 jail (current) use of insulin ([facility]) Lower extremity edema 09/17/2023 Morbid (severe) obesity due to excess calories ([facility]) Obstructive sleep apnea 07/10/2023 PAD (peripheral artery disease) ([facility]) 09/17/2023 Pancreatitis 09/17/2023 Pneumonia 09/17/2023 Proteinuria, unspecified Pulmonary hypertension ([facility]) 09/17/2023 Radiculopathy, lumbar region 09/17/2023 Tobacco user 09/17/2023 Type 2 diabetes mellitus with complication, with long-term current use of insulin ([facility]) 07/10/2023 Unilateral primary osteoarthritis, [...] hyperglycemia, with long-term current use of insulin ([facility]) - POCT glucose manually resulted - POCT glycosylated hemoglobin (Hb A1C) docked device We will continue with Lantus 58, lispro 02/16/12 according to meal size, Mounjaro 15 mg once weekly, Farxiga 5 mg once a day Encounter for dietary consultation Vitamin D deficiency Primary hypertension ([facility]) To follow with her PCP Insulin long-term use ([facility]) Hyperlipemia, mixed ([facility]) Continue with Zocor 10 mg once daily Microalbuminuria Class 3 severe obesity due to excess calories with serious comorbidity and body mass index (BMI) of 50.0 to 59.9 in adult ([facility]) Diet and exercise reviewed with the patient Follow up in about 3 months (around 08/27/2024). documented in this encounter [facility] 04-14-2024 History of Present illness Narrative Associated Problem(s): Hyperpigmentation of skin Will try cerevue ointment to see if helps Associated Problem(s): Tobacco user Urged to quit Associated Problem(s): Type 2 diabetes mellitus with complication, with long-term current use of insulin ([facility]) Check blood sugars daily, [...] Stable on current meds Associated Problem(s): Hypertension ([facility]/HCC) Stable on current meds Refill meds Associated Problem(s): COPD (chronic obstructive pulmonary disease) (CMS/HCC) Stable at this time, no changes in meds Encouraged smoking cessation Cont with dr Yañez Associated Problem(s): Diabetic neuropathy ([facility]) Continue with tristan EAST [...] being taken. She does not see a tv host.Eye exam is not current. Hypertension This is [...] or chew. ergocalciferol (Vitamin D2) 1.25 MG (83392 UT) capsule TAKE 1 CAPSULE BY MOUTH ONE TIME PER WEEK furosemide (LASIX) 20 mg, Oral, Daily PRN, Take in the afternoon as needed furosemide (LASIX) 40 mg, Oral, Daily Glucose Blood (ACCU-CHEK JAQUI PLUS ) 4 times daily HumaLOG KWIKPEN 100 UNIT/ML injection Subcutaneous hydrALAZINE (APRESOLINE) 25 mg, Oral, 2 times daily HYDROcodone-acetaminophen (Shandon) 5-325 MG tablet 1 tablet, 3 times [...] Albuminuria 09/17/2023 Angiomyolipoma Anxiety and depression ([facility]) 07/10/2023 Asthma ([facility]) 07/10/2023 Cellulitis of left lower extremity Cervical cancer ([facility]) 09/17/2023 Chronic pain of both knees 09/17/2023 COPD (chronic obstructive pulmonary disease) ([facility]) 07/10/2023 COPD exacerbation ([facility]) 09/17/2023 Decreased functional [...] 09/17/2023 Pancreatitis 09/17/2023 Pneumonia 09/17/2023 Pulmonary hypertension ([facility]) 09/17/2023 Radiculopathy, lumbar region 09/17/2023 Tobacco user 09/17/2023 Type 2 diabetes mellitus with complication, with long-term current use of insulin ([facility]) 07/10/2023 Unilateral primary osteoarthritis, [...] List Items Addressed This Visit Diabetic neuropathy ([facility]) Continue with lyangelito GALLAGHERRRS reviewed Fu in 3 months Relevant Medications pregabalin (Lyrica) 300 MG capsule COPD (chronic obstructive pulmonary disease) ([facility]) - Primary Stable at this time, no changes in meds Encouraged smoking cessation Cont with dr Yñaez Hypertension ([facility]) Stable on current meds Refill meds Relevant Medications hydrALAZINE (Apresoline) 25 MG tablet lisinopril 20 MG tablet Type 2 diabetes mellitus with complication, with long-term current use of insulin ([facility]) Check blood sugars daily, [...] 81 MG chewable tablet Anxiety and depression ([facility]) Relevant Medications DULoxetine (Cymbalta) [address] capsule Bilateral lower extremity edema Stable on current meds Insomnia Relevant Medications amitriptyline (Elavil) 25 MG tablet Tobacco user Urged to quit Non-seasonal allergic rhinitis Relevant Medications cetirizine (ZyrTEC) 10 MG tablet Hyperpigmentation of skin Will try cerevue ointment to see if helps Other Visit Diagnoses Type 2 diabetes mellitus with unspecified complications ([facility]) Relevant Medications dapagliflozin (Farxiga) 10 MG Gastro-esophageal reflux disease without esophagitis Relevant Medications omeprazole (PriLOSEC) [address] capsule Edema, unspecified Relevant Medications potassium chloride ER (Micro-K) 10 MEQ ER capsule Edema Relevant Medications potassium chloride ER (Micro-K) 10 MEQ ER capsule Chronic obstructive pulmonary disease, unspecified ([facility]) Relevant Medications Roflumilast 500 MCG tablet documented in this encounter [facility] 11-15-2022 Hospital Discharge instructions Patient [...] include: ?8 oz (237 mL) of milk, sybqegh-gexinkefhjlk-kftat milk, and calcium-fortifiedfruit juice. Calcium-fortified means that [...] ?Spinach (cooked), rhubarb, beets, sweet potatoes, and Bahamian chard. ?Peanuts. ?Potato chips, kosovan fries, and baked potatoes with skin on. ?Nuts and nut products. ?Chocolate. If you regularly take a diuretic medicine, make sure to eat at least 1 or 2 servings of fruits or vegetables that are high in potassium each day. These include: ?Avocado. ?Banana. ?[place], prune, carrot, or tomato juice. ?Baked potato. [...] magnesium, fish oil, or vitamin B6. Take zwxf-bca-uufnayq and prescription medicines only as told by [...] provider. Document Revised: 03/06/2022 Document Reviewed: 03/06/2022 [employer] Patient Education 2022 [place]. Follow Up Care 02/06/2022 11:44:09 With:SILVIA HOWELL, SARAH Webb, URL Address: [address] [place] [address] When: Unknown [facility] [place] 08-24-2022 Note CONSULTATION CONSULTATION DATE: 08/24/2022 [...] We maintain her on pain medication with Shandon 5/325 t.i.d., diclofenac 75 mg b.i.d. Her [...] her at this point. A refill for Shandon 5/325 t.i.d. and diclofenac 75 mg b.i.d. [...] 150. Medications include Lyrica 300 mg b.i.d., Shandon 5/325 t.i.d., diclofenac 75 mg b.i.d. and [...] her medications today. We will maintain Lyrica, Shandon and diclofenac at the set dose and [...] medications include Tylenol, Lyrica 300 mg b.i.d., Shandon 5/325 t.i.d., amitriptyline, diclofenac and duloxetine. Patient's [...] to the DANIEL. Thrombocytopenia is unclear etiology. [facility] 08-15-2022 Evaluation note* Encounter Date Diagnosis [...] follow with Dr. Souza and Dr. Arauz. [facility] 08-01-2022 Hospital Discharge instructions Patient Education [...] fried and sweet foods. General instructions Take ylle-bjw-oxvjvjf and prescription medicines only as told by [...] 04/21/2010 Document Revised: 10/16/2019 Document Reviewed: 07/11/2018 [employer] Patient Education 2020 [place]. Follow Up Care 01/05/2022 12:02:03 With:REGLA PHIPPS, Elbert Joya, URL Address: [facility] [address], [place] [address] [phone] When:Within 6 Month(s) Comments:w/ repeat CT A/P [...] pattern and the patient tolerated it well. [facility] Signed and Approved by: GIL VALENZUELA [...] today. Medications include Lyrica 300 mg b.i.d., Shandon 5/325 t.i.d., diclofenac 75 mg b.i.d. and [...] in three months' time unless otherwise indicated. [facility] Signed and Approved by: GIL VALENZUELA . 01/27/2022 [facility]ments Appointment Date:08/14/2022 09:15:00 AM Scheduled Provider:Elbert ARAUZ MD Location:[facility] Appointment Type:URO Office Visit [facility] evaluation + Plan note Future Appointments Appointment Date:04/22/2024 10:00:00 AM Scheduled Provider:SARAH VEGA PA-C Location:[facility] Appointment Type:URO Office Visit [facility] evaluation note* Diagnosis Type 2 diabetes mellitus with unspecified complications (CMS/HCC) Edema, unspecified Edema documented in this encounter [facility]* Diagnosis Vaginal yeast infection- Primary Candidiasis of vulva and vagina documented in this encounter [facility]* Diagnosis Primary hypertension (CMS/HCC)- [...] skin Other dyschromia documented in this encounter [facility]* Diagnosis Obstructive sleep apnea- [...] without complication (CMS/HCC) Primary hypertension (CMS/[facility]) Unspecified [...] with unspecified complications (CMS/HCC) Anxiety and depression ([facility]) Gastro-esophageal reflux disease without esophagitis Edema, unspecified Edema Diabetic polyneuropathy associated with type 2 diabetes mellitus ([facility]) Chronic obstructive pulmonary disease, unspecified ([facility]) Pulmonary emphysema, unspecified emphysema type ([facility]) Bilateral lower extremity edema Tobacco user Tobacco use disorder Hyperpigmentation of skin Other dyschromia Type 2 diabetes mellitus with hyperglycemia, with long-term current use of insulin ([facility])- Primary Encounter for dietary consultation Vitamin D deficiency Primary hypertension ([facility]) Unspecified essential hypertension Insulin long-term use ([facility]) Encounter for long-term (current) use of insulin Hyperlipemia, mixed ([facility]) Mixed hyperlipidemia Microalbuminuria Proteinuria Class 3 severe obesity due to excess calories with serious comorbidity and body mass index (BMI) of 50.0 to 59.9 in adult ([facility]) documented in this encounter [facility]* Diagnosis Hyperlipidemia, unspecified ([facility]) Bilateral lower extremity edema documented in this encounter [facility] Healthcare[facility] note* Diagnosis Vitamin D deficiency, unspecified documented in this encounter [facility] note* Diagnosis Obstructive sleep apnea- Primary Obstructive sleep apnea (adult) (pediatric) Pulmonary emphysema, unspecified emphysema type ([facility]) Primary hypertension ([facility]) Unspecified essential hypertension Type 2 diabetes mellitus with complication, with long-term current use of insulin ([facility]) Anxiety and depression ([facility]) Bilateral lower extremity edema Pulmonary emphysema, unspecified emphysema type ([facility])- Primary Primary hypertension ([facility]) Unspecified essential hypertension Class 3 severe obesity with serious comorbidity and body mass index (BMI) of 50.0 to 59.9 in adult, unspecified obesity type ([facility]) Obstructive sleep apnea Obstructive sleep apnea (adult) (pediatric) Pulmonary hypertension ([facility]) Other chronic pulmonary heart diseases Tobacco user Tobacco use disorder Cardiomegaly Primary hypertension ([facility])- Primary Unspecified essential hypertension Gastroesophageal reflux disease, unspecified whether esophagitis present Type 2 diabetes mellitus with complication, with long-term current use of insulin ([facility]) Mixed hyperlipidemia ([facility]) Mixed hyperlipidemia Tobacco user Tobacco use disorder Encounter for screening mammogram for malignant neoplasm of breast Chronic obstructive pulmonary disease, unspecified ([facility]) Other specified chronic obstructive pulmonary disease (CMS/HCC) [...] polyneuropathy associated with type 2 diabetes mellitus ([facility]) Chronic obstructive pulmonary disease, unspecified ([facility]) Pulmonary emphysema, unspecified emphysema type ([facility]) Bilateral lower extremity edema Tobacco user Tobacco use disorder Hyperpigmentation of skin Other dyschromia Bilateral lower extremity edema documented in this encounter [facility]* Diagnosis Obstructive sleep apnea- Primary Obstructive sleep apnea (adult) (pediatric) Pulmonary emphysema, unspecified emphysema type ([facility]) Primary hypertension ([facility]) Unspecified essential hypertension Type 2 diabetes mellitus with complication, with long-term current use of insulin ([facility]) Anxiety and depression ([facility]) Bilateral lower extremity edema Pulmonary emphysema, unspecified emphysema type ([facility])- Primary Primary hypertension ([facility]) Unspecified essential hypertension Class 3 severe obesity with serious comorbidity and body mass index (BMI) of 50.0 to 59.9 in adult, unspecified obesity type ([facility]) Obstructive sleep apnea Obstructive sleep apnea (adult) (pediatric) Pulmonary hypertension ([facility]) Other chronic pulmonary heart diseases Tobacco user Tobacco use disorder Cardiomegaly Primary hypertension ([facility])- Primary Unspecified essential hypertension Gastroesophageal reflux disease, unspecified whether esophagitis present Type 2 diabetes mellitus with complication, with long-term current use of insulin ([facility]) Mixed hyperlipidemia ([facility]) Mixed hyperlipidemia Tobacco user Tobacco use disorder Encounter for screening mammogram for malignant neoplasm of breast Chronic obstructive pulmonary disease, unspecified ([facility]) Other specified chronic obstructive pulmonary disease ([facility]) Anxiety and depression ([facility]) Edema, unspecified Edema Hyperlipidemia, unspecified ([facility]) Diabetic polyneuropathy associated with type 2 diabetes mellitus ([facility]) Gout, unspecified cause, unspecified chronicity, unspecified site Non-seasonal allergic rhinitis, unspecified trigger Bilateral lower extremity edema COPD exacerbation ([facility]) Obstructive chronic bronchitis with exacerbation Pulmonary emphysema, unspecified emphysema type ([facility]) Venous insufficiency Unspecified venous (peripheral) insufficiency Candidiasis of breast COPD exacerbation ([facility])- Primary Obstructive chronic bronchitis with exacerbation Pulmonary hypertension ([facility]) Other chronic pulmonary heart diseases Class 3 severe obesity with serious comorbidity and body mass index (BMI) of 50.0 to 59.9 in adult, unspecified obesity type ([facility]) Encounter for subsequent annual wellness visit (AWV) in Medicare patient- Primary Type 2 diabetes mellitus with unspecified complications (CMS/HCC) Pulmonary emphysema, unspecified emphysema type (CMS/HCC) Moderate persistent asthma without complication (CMS/HCC) Primary hypertension (CMS/[facility]) Unspecified [...] Major depressive disorder, single episode, mild (HCC) ([facility]) Major depressive disorder, single [...] with unspecified complications (CMS/[facility]) Anxiety and depression ([facility]) Gastro-esophageal reflux disease without esophagitis Edema, unspecified Edema Diabetic polyneuropathy associated with type 2 diabetes mellitus ([facility]) Chronic obstructive pulmonary disease, unspecified (CMS/HCC) [...] 1 cm to 4 cm in diameter ([facility]) Radiculopathy, lumbar region Thoracic or lumbosacral neuritis or radiculitis, unspecified Non-seasonal allergic rhinitis, unspecified trigger Type 2 diabetes mellitus with unspecified complications ([facility]) documented in this encounter [facility]* Diagnosis Obstructive sleep apnea- Primary Obstructive sleep apnea (adult) (pediatric) Pulmonary emphysema, unspecified emphysema type ([facility]) Primary hypertension ([facility]) Unspecified essential hypertension Type 2 diabetes mellitus with complication, with long-term current use of insulin ([facility]) Anxiety and depression ([facility]) Bilateral lower extremity edema Pulmonary emphysema, unspecified emphysema type ([facility])- Primary Primary hypertension ([facility]) Unspecified essential hypertension Class 3 severe obesity with serious comorbidity and body mass index (BMI) of 50.0 to 59.9 in adult, unspecified obesity type ([facility]) Obstructive sleep apnea Obstructive sleep apnea (adult) (pediatric) Pulmonary hypertension ([facility]) Other chronic pulmonary heart diseases Tobacco user Tobacco use disorder Cardiomegaly Primary hypertension ([facility])- Primary Unspecified essential hypertension Gastroesophageal reflux disease, unspecified whether esophagitis present Type 2 diabetes mellitus with complication, with long-term current use of insulin ([facility]) Mixed hyperlipidemia ([facility]) Mixed hyperlipidemia Tobacco user Tobacco use disorder Encounter for screening mammogram for malignant neoplasm of breast Chronic obstructive pulmonary disease, unspecified ([facility]) Other specified chronic obstructive pulmonary disease ([facility]) Anxiety and depression ([facility]) Edema, unspecified Edema Hyperlipidemia, unspecified ([facility]) Diabetic polyneuropathy associated with type 2 diabetes mellitus ([facility]) Gout, unspecified cause, unspecified chronicity, unspecified site Non-seasonal allergic rhinitis, unspecified trigger Bilateral lower extremity edema COPD exacerbation ([facility]) Obstructive chronic bronchitis with exacerbation Pulmonary emphysema, unspecified emphysema type ([facility]) Venous insufficiency Unspecified venous (peripheral) insufficiency Candidiasis of breast COPD exacerbation ([facility])- Primary Obstructive chronic bronchitis with exacerbation Pulmonary hypertension ([facility]) Other chronic pulmonary heart [...] complication, with long-term current use of insulin ([facility]) Tobacco user Tobacco use disorder Encounter for smoking cessation counseling Kidney stone Calculus of kidney Adrenal mass 1 cm to 4 cm in diameter ([facility]) Radiculopathy, lumbar region Thoracic or lumbosacral neuritis or radiculitis, unspecified Non-seasonal allergic rhinitis, unspecified trigger Type 2 diabetes mellitus with unspecified complications ([facility]) Anxiety and depression ([facility])- Primary Morbid (severe) obesity due to excess calories ([facility]) Body mass index (BMI) 50.0-59.9, adult ([facility]) Malignant neoplasm of cervix uteri, unspecified ([facility]) Diabetic polyneuropathy associated with type 2 diabetes mellitus ([facility]) Chronic diastolic heart failure ([facility]) Chronic diastolic heart failure Primary hypertension ([facility]) Unspecified essential hypertension Idiopathic chronic venous hypertension of both lower extremities with ulcer ([facility]) Gastroesophageal reflux disease, unspecified whether esophagitis present Bilateral lower extremity edema Type 2 diabetes mellitus with complication, with long-term current use of insulin ([facility]) Tobacco user Tobacco use disorder Mixed hyperlipidemia ([facility]) Mixed hyperlipidemia Gout, unspecified cause, unspecified chronicity, unspecified site Vitamin deficiency Unspecified vitamin deficiency Gastro-esophageal reflux disease without esophagitis Edema, unspecified Edema Hyperlipidemia, unspecified ([facility]) Encounter for smoking cessation counseling Venous ulcer of right leg ([facility]) Antibiotic-induced yeast infection documented in this encounter [facility] HealthcareEvaluation note* Diagnosis Obstructive sleep apnea- Primary Obstructive sleep apnea (adult) (pediatric) Pulmonary emphysema, unspecified emphysema type ([facility]) Primary hypertension ([facility]) Unspecified essential hypertension Type 2 diabetes mellitus with complication, with long-term current use of insulin ([facility]) Anxiety and depression ([facility]) Bilateral lower extremity edema Pulmonary emphysema, unspecified emphysema type ([facility])- Primary Primary hypertension ([facility]) Unspecified essential hypertension Class 3 severe obesity with serious comorbidity and body mass index (BMI) of 50.0 to 59.9 in adult, unspecified obesity type Obstructive sleep apnea Obstructive sleep apnea (adult) (pediatric) Pulmonary hypertension ([facility]) Other chronic pulmonary heart diseases Tobacco user Tobacco use disorder Cardiomegaly Primary hypertension ([facility])- Primary Unspecified essential hypertension Gastroesophageal reflux disease, unspecified whether esophagitis present Type 2 diabetes mellitus with complication, with long-term current use of insulin ([facility]) Mixed hyperlipidemia ([facility]) Mixed hyperlipidemia Tobacco user Tobacco use disorder Encounter for screening mammogram for malignant neoplasm of breast Chronic obstructive pulmonary disease, unspecified Other specified chronic obstructive pulmonary disease Anxiety and depression ([facility]) Edema, unspecified Edema Hyperlipidemia, unspecified ([facility]) Diabetic polyneuropathy associated with type 2 diabetes mellitus ([facility]) Gout, unspecified cause, unspecified chronicity, unspecified site Non-seasonal allergic rhinitis, unspecified trigger Bilateral lower extremity edema COPD exacerbation ([facility]) Obstructive chronic bronchitis with exacerbation Pulmonary emphysema, unspecified emphysema type ([facility]) Venous insufficiency Unspecified venous [facility] Moderate persistent asthma without complication ([facility]) Primary hypertension ([facility]) Unspecified essential hypertension Type 2 diabetes mellitus with complication, with long-term current use of insulin ([facility]) Class 3 severe obesity [...] spontaneous rupture of tympanic membrane Primary hypertension ([facility])- Primary Unspecified essential hypertension Insomnia Insomnia, unspecified Type 2 diabetes mellitus with complication, with long-term current use of insulin ([facility]) Non-seasonal allergic rhinitis, unspecified trigger Type 2 diabetes mellitus with unspecified complications Anxiety and depression ([facility]) Gastro-esophageal reflux disease without esophagitis Edema, unspecified Edema Diabetic polyneuropathy associated with type 2 diabetes mellitus ([facility]) Chronic obstructive pulmonary disease, unspecified Pulmonary emphysema, unspecified emphysema type ([facility]) Bilateral lower extremity edema Tobacco user Tobacco use disorder Hyperpigmentation of skin Other dyschromia Primary hypertension ([facility])- Primary Unspecified essential hypertension Diabetic polyneuropathy associated with type 2 diabetes mellitus ([facility]) Pulmonary emphysema, unspecified emphysema type ([facility]) Critical limb ischemia of right lower extremity ([facility]) PAD (peripheral artery disease) ([facility]) Unspecified peripheral vascular disease Gastroesophageal reflux disease, unspecified whether esophagitis present Bilateral lower extremity edema Venous ulcer of right leg ([facility]) Type 2 diabetes mellitus with complication, with long-term current use of insulin ([facility]) Tobacco user Tobacco use disorder Encounter for smoking cessation counseling Kidney stone Calculus of kidney Adrenal mass 1 cm to 4 cm in diameter ([facility]) Radiculopathy, lumbar region Thoracic or lumbosacral neuritis or radiculitis, unspecified Non-seasonal allergic rhinitis, unspecified trigger Type 2 diabetes mellitus with unspecified complications Anxiety and depression ([facility])- Primary Morbid (severe) obesity due to excess calories ([facility]) Body mass index (BMI) 50.0-59.9, adult ([facility]) Malignant neoplasm of cervix uteri, unspecified Diabetic polyneuropathy associated with type 2 diabetes mellitus ([facility]) Chronic diastolic heart failure ([facility]) Chronic diastolic heart failure Primary hypertension ([facility]) Unspecified essential hypertension Idiopathic chronic venous hypertension of both lower extremities with ulcer Gastroesophageal reflux disease, unspecified whether esophagitis present Bilateral lower extremity edema Type 2 diabetes mellitus with complication, with long-term current use of insulin ([facility]) Tobacco user Tobacco use disorder Mixed hyperlipidemia ([facility]) Mixed hyperlipidemia Gout, unspecified cause, unspecified chronicity, unspecified site Vitamin deficiency Unspecified vitamin deficiency Gastro-esophageal reflux disease without esophagitis Edema, unspecified Edema Hyperlipidemia, unspecified ([facility]) Encounter for smoking cessation counseling Venous ulcer of right leg ([facility]) Antibiotic-induced yeast infection Type 2 diabetes mellitus with hyperglycemia, with long-term current use of insulin ([facility])- Primary Encounter for dietary consultation Vitamin D deficiency Primary hypertension ([facility]) Unspecified essential hypertension Insulin long-term use ([facility]) Encounter for long-term (current) use of insulin Hyperlipemia, mixed ([facility]) Mixed hyperlipidemia Microalbuminuria Proteinuria Class 3 severe obesity due to excess calories with serious comorbidity and body mass index (BMI) of 50.0 to 59.9 in adult documented in this encounter [facility] HealthcareEvaluation note* Diagnosis Obstructive sleep apnea- Primary Obstructive sleep apnea (adult) (pediatric) Pulmonary emphysema, unspecified emphysema type ([facility]) Primary hypertension ([facility]) Unspecified essential hypertension Type 2 diabetes mellitus with complication, with long-term current use of insulin ([facility]) Anxiety and depression ([facility]) Bilateral lower extremity edema Pulmonary emphysema, unspecified emphysema type ([facility])- Primary Primary hypertension ([facility]) Unspecified essential hypertension Class 3 severe obesity with serious comorbidity and body mass index (BMI) of 50.0 to 59.9 in adult, unspecified obesity type Obstructive sleep apnea Obstructive sleep apnea (adult) (pediatric) Pulmonary hypertension ([facility]) Other chronic pulmonary heart diseases Tobacco user Tobacco use disorder Cardiomegaly Primary hypertension ([facility])- Primary Unspecified essential hypertension Gastroesophageal reflux disease, unspecified whether esophagitis present Type 2 diabetes mellitus with complication, with long-term current use of insulin ([facility]) Mixed hyperlipidemia ([facility]) Mixed hyperlipidemia Tobacco user Tobacco use disorder Encounter for screening mammogram for malignant neoplasm of breast Chronic obstructive pulmonary disease, unspecified Other specified chronic obstructive pulmonary disease Anxiety and depression ([facility]) Edema, unspecified Edema Hyperlipidemia, unspecified ([facility]) Diabetic polyneuropathy associated with type 2 diabetes mellitus ([facility]) Gout, unspecified cause, unspecified chronicity, unspecified site Non-seasonal allergic rhinitis, unspecified trigger Bilateral lower extremity edema COPD exacerbation ([facility]) Obstructive chronic bronchitis with exacerbation Pulmonary emphysema, unspecified emphysema type ([facility]) Venous insufficiency Unspecified venous (peripheral) insufficiency Candidiasis of breast COPD exacerbation ([facility])- Primary Obstructive chronic bronchitis with exacerbation Pulmonary hypertension ([facility]) Other chronic pulmonary heart diseases Class 3 severe obesity with serious comorbidity and body mass index (BMI) of 50.0 to 59.9 in adult, unspecified obesity type Encounter for subsequent annual wellness visit (AWV) in Medicare patient- Primary Type 2 diabetes mellitus with unspecified complications Pulmonary emphysema, unspecified emphysema type ([facility]) Moderate persistent asthma without complication ([facility]) Primary hypertension ([facility]) Unspecified essential hypertension Type 2 diabetes mellitus with complication, with long-term current use of insulin ([facility]) Class 3 severe obesity with serious comorbidity and body mass index (BMI) of 50.0 to 59.9 in adult, unspecified obesity type Tobacco user Tobacco use disorder Other headache syndrome Malignant neoplasm of cervix uteri, unspecified Other specified disorders of adrenal gland Major depressive disorder, single episode, mild (HCC) ([facility]) Major depressive disorder, single episode, mild Non-pressure chronic ulcer of other part of left lower leg with fat layer exposed Chronic respiratory failure, unspecified whether with hypoxia or hypercapnia Disorder of adrenal gland, unspecified Non-pressure chronic ulcer of other part of right lower leg limited to breakdown of skin ([facility]) Non-recurrent acute suppurative otitis media of left ear without spontaneous rupture of tympanic membrane Primary hypertension ([facility])- Primary Unspecified essential hypertension Insomnia Insomnia, unspecified Type 2 diabetes mellitus with complication, with long-term current use of insulin ([facility]) Non-seasonal allergic rhinitis, unspecified trigger Type 2 diabetes mellitus with unspecified complications Anxiety and depression ([facility]) Gastro-esophageal reflux disease without esophagitis Edema, unspecified Edema Diabetic polyneuropathy associated with type 2 diabetes mellitus ([facility]) Chronic obstructive pulmonary disease, unspecified Pulmonary emphysema, unspecified emphysema type ([facility]) Bilateral lower extremity edema Tobacco user Tobacco use disorder Hyperpigmentation of skin Other dyschromia Primary hypertension ([facility])- Primary Unspecified essential hypertension Diabetic polyneuropathy associated with type 2 diabetes mellitus ([facility]) Pulmonary emphysema, unspecified emphysema type ([facility]) Critical limb ischemia of right lower extremity ([facility]) PAD (peripheral artery disease) ([facility]) Unspecified peripheral vascular disease Gastroesophageal reflux disease, unspecified whether esophagitis present Bilateral lower extremity edema Venous ulcer of right leg ([facility]) Type 2 diabetes mellitus with complication, with long-term current use of insulin ([facility]) Tobacco user Tobacco use disorder Encounter for smoking cessation counseling Kidney stone Calculus of kidney Adrenal mass 1 cm to 4 cm in diameter ([facility]) Radiculopathy, lumbar region Thoracic or lumbosacral neuritis or radiculitis, unspecified Non-seasonal allergic rhinitis, unspecified trigger Type 2 diabetes mellitus with unspecified complications Anxiety and depression ([facility])- Primary Morbid (severe) obesity due to excess calories ([facility]) Body mass index (BMI) 50.0-59.9, adult ([facility]) Malignant neoplasm of cervix uteri, unspecified Diabetic polyneuropathy associated with type 2 diabetes mellitus ([facility]) Chronic diastolic heart failure ([facility]) Chronic diastolic heart failure Primary hypertension ([facility]) Unspecified essential hypertension 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 Gastroesophageal reflux disease, unspecified whether esophagitis present Bilateral lower extremity edema Type 2 diabetes mellitus with complication, with long-term current use of insulin ([facility]) Tobacco user Tobacco use disorder Mixed hyperlipidemia ([facility]) Mixed hyperlipidemia Gout, unspecified cause, unspecified chronicity, unspecified site Vitamin deficiency Unspecified vitamin deficiency Gastro-esophageal reflux disease without esophagitis Edema, unspecified Edema Hyperlipidemia, unspecified ([facility]) Encounter for smoking cessation counseling Venous ulcer of right leg ([facility]) Antibiotic-induced yeast infection Chronic obstructive pulmonary disease, unspecified documented in this encounter [facility] HealthcareEvaluation note* Diagnosis Obstructive sleep apnea- Primary Obstructive sleep apnea (adult) (pediatric) Pulmonary emphysema, unspecified emphysema type ([facility]) Primary hypertension ([facility]) Unspecified essential hypertension Type 2 diabetes mellitus with complication, with long-term current use of insulin ([facility]) Anxiety and depression ([facility]) Bilateral lower extremity edema Pulmonary emphysema, unspecified emphysema type ([facility])- Primary Primary hypertension ([facility]) Unspecified essential hypertension Class 3 severe obesity with serious comorbidity and body mass index (BMI) of 50.0 to 59.9 in adult, unspecified obesity type Obstructive sleep apnea Obstructive sleep apnea (adult) (pediatric) Pulmonary hypertension ([facility]) Other chronic pulmonary heart diseases Tobacco user Tobacco use disorder Cardiomegaly Primary hypertension ([facility])- Primary Unspecified essential hypertension Gastroesophageal reflux disease, unspecified whether esophagitis present Type 2 diabetes mellitus with complication, with long-term current use of insulin ([facility]) Mixed hyperlipidemia ([facility]) Mixed hyperlipidemia Tobacco user Tobacco use disorder Encounter for screening mammogram for malignant neoplasm of breast Chronic obstructive pulmonary disease, unspecified Other specified chronic obstructive pulmonary disease Anxiety and depression ([facility]) Edema, unspecified Edema Hyperlipidemia, unspecified ([facility]) Diabetic polyneuropathy associated with type 2 diabetes mellitus ([facility]) Gout, unspecified cause, unspecified chronicity, unspecified site Non-seasonal allergic rhinitis, unspecified trigger Bilateral lower extremity edema COPD exacerbation ([facility]) Obstructive chronic bronchitis with exacerbation Pulmonary emphysema, unspecified emphysema type ([facility]) Venous insufficiency Unspecified venous [...] unspecified complications Pulmonary emphysema, unspecified emphysema type ([facility]) Moderate persistent asthma without complication ([facility]) Primary hypertension ([facility]) Unspecified essential hypertension Type 2 diabetes mellitus with complication, with long-term current use of insulin ([facility]) Class 3 severe obesity with serious comorbidity and body mass index (BMI) of 50.0 to 59.9 in adult, unspecified obesity type Tobacco user Tobacco use disorder Other headache syndrome Malignant neoplasm of cervix uteri, unspecified Other specified disorders of adrenal gland Major depressive disorder, single episode, mild ([facility]) ([facility]) Major depressive disorder, single episode, mild Non-pressure chronic ulcer of other part of left lower leg with fat layer exposed Chronic respiratory failure, unspecified whether with hypoxia or hypercapnia Disorder of adrenal gland, unspecified Non-pressure chronic ulcer of other part of right lower leg limited to breakdown of skin ([facility]) Non-recurrent acute suppurative otitis media of left ear without spontaneous rupture of tympanic membrane Primary hypertension ([facility])- Primary Unspecified essential hypertension Insomnia Insomnia, unspecified Type 2 diabetes mellitus with complication, with long-term current use of insulin ([facility]) Non-seasonal allergic rhinitis, unspecified trigger Type 2 diabetes mellitus with unspecified complications Anxiety and depression ([facility]) Gastro-esophageal reflux disease without esophagitis Edema, unspecified Edema Diabetic polyneuropathy associated with type 2 diabetes mellitus ([facility]) Chronic obstructive pulmonary disease, unspecified Pulmonary emphysema, unspecified emphysema type ([facility]) Bilateral lower extremity edema Tobacco user Tobacco use disorder Hyperpigmentation of skin Other dyschromia Primary hypertension ([facility])- Primary Unspecified essential hypertension Diabetic polyneuropathy associated with type 2 diabetes mellitus ([facility]) Pulmonary emphysema, unspecified emphysema type ([facility]) Critical limb ischemia of right lower extremity ([facility]) PAD (peripheral artery disease) ([facility]) Unspecified peripheral vascular disease Gastroesophageal reflux disease, unspecified whether esophagitis present Bilateral lower extremity edema Venous ulcer of right leg ([facility]) Type 2 diabetes mellitus with complication, with long-term current use of insulin ([facility]) Tobacco user Tobacco use disorder Encounter for smoking cessation counseling Kidney stone Calculus of kidney Adrenal mass 1 cm to 4 cm in diameter ([facility]) Radiculopathy, lumbar region Thoracic or lumbosacral neuritis or radiculitis, unspecified Non-seasonal allergic rhinitis, unspecified trigger Type 2 diabetes mellitus with unspecified complications Anxiety and depression ([facility])- Primary Morbid (severe) obesity due to excess calories ([facility]) Body mass index (BMI) 50.0-59.9, adult ([facility]) Malignant neoplasm of cervix uteri, unspecified Diabetic polyneuropathy associated with type 2 diabetes mellitus ([facility]) Chronic diastolic heart failure ([facility]) Chronic diastolic heart failure Primary hypertension ([facility]) Unspecified essential hypertension 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 Gastroesophageal reflux disease, unspecified whether esophagitis present Bilateral lower extremity edema Type 2 diabetes mellitus with complication, with long-term current use of insulin ([facility]) Tobacco user Tobacco use disorder Mixed hyperlipidemia ([facility]) Mixed hyperlipidemia Gout, unspecified cause, unspecified chronicity, unspecified site Vitamin deficiency Unspecified vitamin deficiency Gastro-esophageal reflux disease without esophagitis Edema, unspecified Edema Hyperlipidemia, unspecified ([facility]) Encounter for smoking cessation counseling Venous ulcer of right leg ([facility]) Antibiotic-induced yeast infection Primary hypertension ([facility])- Primary Unspecified essential hypertension Diabetic polyneuropathy associated with type 2 diabetes mellitus ([facility]) Chronic diastolic heart failure ([facility]) Chronic diastolic heart failure Bilateral lower extremity edema Morbid (severe) obesity due to excess calories ([facility]) Type 2 diabetes mellitus with complication, with long-term current use of insulin ([facility]) Anxiety and depression ([facility]) Cigarette nicotine dependence without complication Encounter for screening mammogram for malignant neoplasm of breast Insomnia Insomnia, unspecified Non-seasonal allergic rhinitis, unspecified trigger Type 2 diabetes mellitus with unspecified complications Vitamin D deficiency, unspecified Gastro-esophageal reflux disease without esophagitis PAD (peripheral artery disease) ([facility]) Unspecified peripheral vascular disease Gastroesophageal reflux disease, unspecified whether esophagitis present Venous ulcer of right leg ([facility]) documented in this encounter [facility] HealthcareEvaluation note* Diagnosis Obstructive sleep apnea- [...] to 59.9 in adult, unspecified obesity type ([facility]) Obstructive sleep apnea Obstructive [...] to 59.9 in adult, unspecified obesity type ([facility]) Encounter for subsequent annual [...] Critical limb ischemia of right lower extremity ([facility]) PAD (peripheral artery disease) [...] Morbid (severe) obesity due to excess calories ([facility]) Body mass index (BMI) 50.0-59.9, adult ([facility] [...] Morbid (severe) obesity due to excess calories ([facility]) Type 2 diabetes mellitus [...] Morbid (severe) obesity due to excess calories ([facility]) Type 2 diabetes mellitus with complication, with long-term current use of insulin ([facility]) Anxiety and depression Fever, unspecified fever cause Hyperlipidemia, unspecified Tobacco user Tobacco use disorder Encounter for smoking cessation counseling documented in this encounter [facility]* Diagnosis Obstructive sleep apnea- Primary Obstructive sleep apnea (adult) (pediatric) Pulmonary emphysema, unspecified emphysema type ([facility]) Primary hypertension ([facility]) Unspecified essential hypertension Type 2 diabetes mellitus with complication, with long-term current use of insulin ([facility]) Anxiety and depression ([facility]) Bilateral lower extremity edema Pulmonary emphysema, unspecified emphysema type ([facility])- Primary Primary hypertension ([facility]) Unspecified essential hypertension Class 3 severe obesity with serious comorbidity and body mass index (BMI) of 50.0 to 59.9 in adult, unspecified obesity type Obstructive sleep apnea Obstructive sleep apnea (adult) (pediatric) Pulmonary hypertension ([facility]) Other chronic pulmonary heart diseases Tobacco user Tobacco use disorder Cardiomegaly Primary hypertension ([facility]/HCC)- Primary Unspecified essential hypertension Gastroesophageal reflux disease, unspecified whether esophagitis present Type 2 diabetes mellitus with complication, with long-term current use of insulin ([facility]) Mixed hyperlipidemia ([facility]) Mixed hyperlipidemia Tobacco user Tobacco use disorder Encounter for screening mammogram for malignant neoplasm of breast Chronic obstructive pulmonary disease, unspecified Other specified chronic obstructive pulmonary disease Anxiety and depression ([facility]) Edema, unspecified Edema Hyperlipidemia, unspecified ([facility]) Diabetic polyneuropathy associated with type 2 diabetes mellitus ([facility]) Gout, unspecified cause, unspecified chronicity, unspecified site Non-seasonal allergic rhinitis, unspecified trigger Bilateral lower extremity edema COPD exacerbation ([facility]) Obstructive chronic bronchitis with exacerbation Pulmonary emphysema, unspecified emphysema type ([facility]) Venous insufficiency Unspecified venous [...] [facility]) Moderate persistent asthma without complication ([facility]) Primary hypertension ([facility]) Unspecified essential hypertension Type 2 diabetes mellitus with complication, with long-term current use of insulin ([facility]) Class 3 severe obesity [...] spontaneous rupture of tympanic membrane Primary hypertension ([facility])- Primary Unspecified essential hypertension Insomnia Insomnia, unspecified Type 2 diabetes mellitus with complication, with long-term current use of insulin ([facility]) Non-seasonal allergic rhinitis, unspecified trigger Type 2 diabetes mellitus with unspecified complications Anxiety and depression ([facility]) Gastro-esophageal reflux disease without esophagitis Edema, unspecified Edema Diabetic polyneuropathy associated with type 2 diabetes mellitus ([facility]) Chronic obstructive pulmonary disease, unspecified Pulmonary emphysema, unspecified emphysema type ([facility]) Bilateral lower extremity edema Tobacco user Tobacco use disorder Hyperpigmentation of skin Other dyschromia Primary hypertension ([facility])- Primary Unspecified essential hypertension Diabetic polyneuropathy associated with type 2 diabetes mellitus ([facility]) Pulmonary emphysema, unspecified emphysema type ([facility]) Critical limb ischemia of right lower extremity ([facility]) PAD (peripheral artery disease) ([facility]) Unspecified peripheral vascular disease Gastroesophageal reflux disease, unspecified whether esophagitis present Bilateral lower extremity edema Venous ulcer of right leg ([facility]) Type 2 diabetes mellitus with complication, with long-term current use of insulin ([facility]) Tobacco user Tobacco use disorder Encounter for smoking cessation counseling Kidney stone Calculus of kidney Adrenal mass 1 cm to 4 cm in diameter ([facility]) Radiculopathy, lumbar region Thoracic or lumbosacral neuritis or radiculitis, unspecified Non-seasonal allergic rhinitis, unspecified trigger Type 2 diabetes mellitus with unspecified complications Anxiety and depression ([facility])- Primary Morbid (severe) obesity due to excess calories ([facility]) Body mass index (BMI) 50.0-59.9, adult ([facility]) Malignant neoplasm of cervix uteri, unspecified Diabetic polyneuropathy associated with type 2 diabetes mellitus ([facility]) Chronic diastolic heart failure ([facility]) Chronic diastolic heart failure Primary hypertension ([facility]) Unspecified essential hypertension 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 Gastroesophageal reflux disease, unspecified whether esophagitis present Bilateral lower extremity edema Type 2 diabetes mellitus with complication, with long-term current use of insulin ([facility]) Tobacco user Tobacco use disorder Mixed hyperlipidemia ([facility]) Mixed hyperlipidemia Gout, unspecified cause, unspecified chronicity, unspecified site Vitamin deficiency Unspecified vitamin deficiency Gastro-esophageal reflux disease without esophagitis Edema, unspecified Edema Hyperlipidemia, unspecified ([facility]) Encounter for smoking cessation counseling Venous ulcer of right leg ([facility]) Antibiotic-induced yeast infection Primary hypertension ([facility])- Primary Unspecified essential hypertension Diabetic polyneuropathy associated with type 2 diabetes mellitus ([facility]) Chronic diastolic heart failure ([facility]) Chronic diastolic heart failure Bilateral lower extremity edema Morbid (severe) obesity due to excess calories ([facility]) Type 2 diabetes mellitus with complication, with long-term current use of insulin ([facility]) Anxiety and depression ([facility]) Cigarette nicotine dependence without complication Encounter for screening mammogram for malignant neoplasm of breast Insomnia Insomnia, unspecified Non-seasonal allergic rhinitis, unspecified trigger Type 2 diabetes mellitus with unspecified complications Vitamin D deficiency, unspecified Gastro-esophageal reflux disease without esophagitis PAD (peripheral artery disease) ([facility]) Unspecified peripheral vascular disease Gastroesophageal reflux disease, unspecified whether esophagitis present Venous ulcer of right leg ([facility]) Cellulitis of left lower extremity- Primary COPD exacerbation ([facility]) Obstructive chronic bronchitis with exacerbation Primary hypertension ([facility]) Unspecified essential hypertension Pulmonary hypertension ([facility]) Other chronic pulmonary heart diseases Morbid (severe) obesity due to excess calories ([facility]) Type 2 diabetes mellitus with complication, with long-term current use of insulin ([facility]) Anxiety and depression ([facility]) Fever, unspecified fever cause documented in this encounter [facility] HealthcareEvaluation note* Diagnosis Obstructive sleep apnea- [...] to 59.9 in adult, unspecified obesity type ([facility]) Obstructive sleep apnea Obstructive sleep apnea (adult) (pediatric) Pulmonary hypertension ([facility]) Other [...] [facility]) Pulmonary emphysema, unspecified emphysema type ([facility]) Critical limb ischemia of right lower extremity ([facility]) PAD (peripheral artery disease) [...] [facility]) Malignant neoplasm of cervix uteri, unspecified ([facility] [...] with unspecified complications ([facility]) Vitamin D deficiency, unspecified Gastro-esophageal reflux [...] Morbid (severe) obesity due to excess calories ([facility]) Type 2 diabetes mellitus [...] Morbid (severe) obesity due to excess calories ([facility]) Type 2 diabetes mellitus with hyperglycemia, with long-term current use of insulin ([facility]) documented in this encounter [facility] HealthcareEvaluation note* Diagnosis Obstructive sleep apnea- [...] to 59.9 in adult, unspecified obesity type ([facility]) Obstructive sleep apnea Obstructive [...] to 59.9 in adult, unspecified obesity type ([facility]) Encounter for subsequent annual [...] to 59.9 in adult, unspecified obesity type ([facility]) Tobacco user Tobacco use [...] Critical limb ischemia of right lower extremity ([facility]) PAD (peripheral artery disease) [...] [facility]) Body mass index (BMI) 50.0-59.9, adult ([facility]) Malignant neoplasm of cervix uteri, unspecified ([facility]) Diabetic polyneuropathy associated with type 2 diabetes mellitus ([facility]) Chronic diastolic heart failure ([facility]) Chronic diastolic heart [...] Morbid (severe) obesity due to excess calories ([facility]) Type 2 diabetes mellitus with complication, with long-term current use of insulin ([facility]) Anxiety and depression Cigarette nicotine dependence without complication Encounter for screening mammogram for malignant neoplasm of breast Insomnia Insomnia, unspecified Non-seasonal allergic rhinitis, unspecified trigger Type 2 diabetes mellitus with unspecified complications ([facility]) Vitamin D deficiency, unspecified Gastro-esophageal reflux disease without esophagitis PAD (peripheral artery disease) Unspecified peripheral vascular disease Gastroesophageal reflux disease, unspecified whether esophagitis present Venous ulcer of right leg ([facility]) Cellulitis of left lower extremity- Primary [...] disease without esophagitis Chronic diastolic heart failure ([facility]) Chronic diastolic heart failure Primary hypertension Unspecified essential hypertension Pulmonary hypertension ([facility]) Other chronic pulmonary heart diseases Diabetic polyneuropathy [...] [facility]) documented in this encounter [facility] HealthcareEvaluation note* Diagnosis Obstructive sleep apnea- Primary Obstructive sleep apnea (adult) (pediatric) Pulmonary emphysema, unspecified emphysema type ([facility]) Primary hypertension Unspecified essential hypertension Type 2 diabetes mellitus with complication, with long-term current use of insulin ([facility]) Anxiety and depression Bilateral lower extremity edema Pulmonary emphysema, unspecified emphysema type ([facility])- Primary Primary hypertension Unspecified essential hypertension Class 3 severe obesity with serious comorbidity and body mass index (BMI) of 50.0 to 59.9 in adult, unspecified obesity type ([facility]) Obstructive sleep apnea Obstructive sleep apnea (adult) [...] with exacerbation Pulmonary emphysema, unspecified emphysema type ([facility]) Venous insufficiency Unspecified venous [...] to 59.9 in adult, unspecified obesity type ([facility]) Tobacco user Tobacco use [...] [facility]) Pulmonary emphysema, unspecified emphysema type (HCC) Critical limb ischemia of right lower extremity ([facility]) PAD (peripheral artery disease) [...] [facility]) Malignant neoplasm of cervix uteri, unspecified ([facility] [...] Morbid (severe) obesity due to excess calories ([facility]) Type 2 diabetes mellitus [...] Morbid (severe) obesity due to excess calories ([facility]) Tobacco user Tobacco use disorder Encounter for smoking cessation counseling documented in this encounter [facility] noteNo assessment [facility]Tr[facility] Work Phone: History general Narrative - Reported* [...] History sepsis 2010 Hospitalization History SEE ABOVE [place] Other Hospital course Narrative No data available for this section [facility] progress note No data available for this section [facility] reason for referral (narrative) , Referral to Dr. 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 Technologist (Rvt) Expl anation Advance Directives and Living Will Power of Clinching 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 Advance Directive Response Recorded Date/ Time Advance [...] section and content) DATE CREATED AUTHOR 10/30/2019 [facility] DATE CREATED AUTHOR AUTHOR'S ORGANIZ ATION 09/15/2020 [facility] DATE CREATED AUTHOR AUTHOR'S ORGANIZ ATION 12/19/2022 [facility] DATE CREATED AUTHOR AUTHOR'S ORGANIZ ATION 06/03/2024 [facility] DATE CREATED AUTHOR AUTHOR'S ORGANIZ ATION 01/30/2025 [facility] EPIC DATE CREATED AUTHOR AUTHOR'S ORGANIZ ATION 04/12/2025 [facility] DATE CREATED AUTHOR AUTHOR'S ORGANIZ ATION 04/24/2025 [facility] Care Team (unrecognized sect ion and content) Office Supervisor Relationship Specialty Start Date End Date Ty Amin MD PCP - General Family Medicine 01/05/23 Office Supervisor Relationship Specialty Start Date End Date Ty Amin MD PCP - General Family Medicine 01/05/23 Office Supervisor Relationship Specialty Start Date End Date Ty Amin MD [address] [place] [phone] PCP - General Family Medicine 09/20/23 Mckayla Blas NP [address] [place] [phone] PCP - [facility] 09/07/23 09/05/90 Mckayla Blas NP [address] [place] [phone] Nurse Practitioner Family Medicine 09/20/23 Office Supervisor Relationship Specialty Start Date End Date Ty Amin MD [address] [place] [phone] PCP - General Family Medicine 09/20/23 Mckayla Blas NP [address] [place] [phone] PCP - [facility] 09/07/23 09/05/90 Mckayla Blas NP [address] [place] [phone] Nurse Practitioner Family Medicine 09/20/23 Office Supervisor Relationship Specialty Start Date End Date Ty Amin MD [address] [place] [phone] PCP - General Family Medicine 09/20/23 Mckayla Blas NP [address] [place] [phone] PCP - [facility] 09/07/23 09/05/90 Mckayla Blas NP [address] [place] [phone] Nurse Practitioner Family Medicine 09/20/23 Office Supervisor Relationship Specialty Start Date End Date Ty Amin MD [address] [place] [phone] PCP - General Family Medicine 09/20/23 Mckayla Blas NP [address] [place] [phone] PCP - [facility] 09/07/23 09/05/90 Mckayla Blas NP [address] [place] [phone] Nurse Practitioner Family Medicine 09/20/23 Office Supervisor Relationship Specialty Start Date End Date Ty Amin MD [address] [place] [phone] PCP - General Family Medicine 09/20/23 Mckayla Blas NP [address] [place] [phone] PCP - [facility] 09/07/23 09/05/90 Mckayla Blas NP [address] [place] [phone] Nurse Practitioner Family Medicine 09/20/23 Office Supervisor Relationship Specialty Start Date End Date Ty Amin MD [address] [place] [address] PCP - General Family Medicine 09/20/23 Mckayla Blas NP [address] [place] [phone] PCP - [facility] 09/07/23 09/05/90 Mcakyla Blas NP [address] [place] [address] Nurse Practitioner Family Medicine 09/20/23 Office Supervisor Relationship Specialty Start Date End Date Ty Amin MD [address] [place] [phone] PCP - General Family Medicine 09/20/23 Mckayla Blas NP [address] [place] [phone] PCP - [facility] 09/07/23 09/05/90 Mckayla Blas NP [address] [place] [phone] Nurse Practitioner Family Medicine 09/20/23 Office Supervisor Relationship Specialty Start Date End Date Ty Amin MD [address] [place] [phone] PCP - General Family Medicine 09/20/23 Mckayla Blas NP [address] [place] [phone] PCP - [facility] 09/07/23 09/05/90 Mckayla Blas NP [address] [place] [phone] Nurse Practitioner Family Medicine 09/20/23 Office Supervisor Relationship Specialty Start Date End Date Ty Amin MD [address] [place] [phone] PCP - General Family Medicine 09/20/23 Mckayla Blas NP [address] [place] [phone] PCP - [facility] 09/07/23 09/05/90 Mckayla Blas NP [address] [place] [phone] Nurse Practitioner Family Medicine 09/20/23 Office Supervisor Relationship Specialty Start Date End Date Ty Amin MD [address] [place] [phone] PCP - General Family Medicine 09/20/23 Mckayla Blas NP [address] [place] [phone] PCP - [facility] 09/07/23 09/05/90 Mckayla Blas NP [address] [place] [phone] Nurse Practitioner Family Medicine 09/20/23 Office Supervisor Relationship Specialty Start Date End Date Ty Amin MD [address] [place] [address] PCP - General Family Medicine 09/20/23 Mckayla Blas NP [address] [place] [phone] PCP - [facility] 09/07/23 09/05/90 Mckayla Blas NP [address] [place] [phone] Nurse Practitioner Family Medicine 09/20/23 Office Supervisor Relationship Specialty Start Date End Date Ty Amin MD [address] [place] [phone] PCP - General Family Medicine 09/20/23 Mckayla Blas NP [address] [place] [phone] PCP - [facility] 09/07/23 09/05/90 Mckayla Blas NP [address] [place] [phone] Nurse Practitioner Family Medicine 09/20/23 Office Supervisor Relationship Specialty Start Date End Date Ty Amin MD [address] [place] [phone] PCP - General Family Medicine 09/20/23 Mckayla Blas NP [address] [place] [phone] PCP - [facility] 09/07/23 09/05/90 Mckayla Blas NP [address] [place] [address] Nurse Practitioner Family Medicine 09/20/23 Office Supervisor Relationship Specialty Start Date End Date Ty Amin MD [address] [place] [phone] PCP - General Family Medicine 09/20/23 Mckayla Blas NP [address] [place] [phone] PCP - [facility] 09/07/23 09/05/90 Mckayla Blas NP [address] [place] [address] Nurse Practitioner Family Medicine 09/20/23 Office Supervisor Relationship Specialty Start Date End Date Ty Amin MD [address] [place] [phone] PCP - General Family Medicine 09/20/23 Mckayla Blas NP [address] [place] [phone] PCP - [facility] 09/07/23 09/05/90 Mckayla Blas NP [address] [place] [phone] Nurse Practitioner Family Medicine 09/20/23 Office Supervisor Relationship Specialty Start Date End Date Ty Amin MD [address] [place] [address] PCP - General Family Medicine 09/20/23 Mckayla Blas NP [address] [place] [phone] PCP - [facility] 09/07/23 09/05/90 Mckayla Blas NP [address] [place] [address] Nurse Practitioner Family Medicine 09/20/23 Office Supervisor Relationship Specialty Start Date End Date Ty Amin MD [address] [place] [phone] PCP - General Family Medicine 09/20/23 Mckayla Blas NP [address] [place] [phone] PCP - [facility] 09/07/23 09/05/90 Mckayla Blas NP [address] [place] [address] Nurse Practitioner Family Medicine 09/20/23 Office Supervisor Relationship Specialty Start Date End Date Ty Amin MD [address] [place] [phone] PCP - General Family Medicine 09/20/23 Mckayla Blas NP [address] [place] [phone] PCP - [facility] 09/07/23 09/05/90 Mckayla Blas NP [address] [place] [address] Nurse Practitioner Family Medicine 09/20/23 Office Supervisor Relationship Specialty Start Date End Date Ty Amin MD [address] [place] [phone] PCP - General Family Medicine 09/20/23 Mckayla Blas NP [address] [place] [phone] PCP - [facility] 09/07/23 09/05/90 Mckayla Blas NP [address] [place] [phone] Nurse Practitioner Family Medicine 09/20/23 Office Supervisor Relationship Specialty Start Date End Date Ty Amin MD [address] [place] [phone] PCP - General Family Medicine 09/20/23 Mckayla Blas NP [address] [place] [phone] PCP - [facility] 09/07/23 09/05/90 Mckayla Blas NP [address] [place] [address] Nurse Practitioner Family Medicine 09/20/23 Office Supervisor Relationship Specialty Start Date End Date Ty Amin MD [address] [place] [address] PCP - General Family Medicine 09/20/23 Mckayla Blas NP [address] [place] [address] Nurse Practitioner Family Medicine 09/20/23 Office Supervisor Relationship Specialty Start Date End Date Ty Amin MD [address] [place] [phone] PCP - General Family Medicine 09/20/23 Mckayla Blas NP [address] [place] [address] Nurse Practitioner Family Medicine 09/20/23 Office Supervisor Relationship Specialty Start Date End Date Ty Amin MD [address] [place] [phone] PCP - General Family Medicine 09/20/23 Mckayla Blas NP [address] [place] [address] Nurse Practitioner Family Medicine 09/20/23 Office Supervisor Relationship Specialty Start Date End Date Ty Amin MD [address] [place] [phone] PCP - General Family Medicine 09/20/23 Mckayla Blas NP [address] [place] [address] Nurse Practitioner [facility] Medicine 09/20/23 Office Supervisor Relationship Specialty Start Date End Date Ty Amin MD [address] [place] [phone] PCP - General Family Medicine 09/20/23 Mckayla Blas NP [address] [place] [phone] Nurse Practitioner [facility] 09/20/23 Team Status: Active Member Role Status [...] BE BASED ON THE PRIMARY CLINICAL RECORDS. [employer] [facility]. provides no warranty or guarantee of the accuracy or completeness of information in this document.
== END 2025-04-27 13:23 | disposition home or self-care (01) ==
LOC: WC 13:22
PROVIDERS: PCP Nurse Practitioner; Visit Provider Physician Assistant
DX: I87.311 Chronic venous hypertension (idiopathic) with ulcer of right lower extremity (principal); L97.812 Non-pressure chronic ulcer of other part of right lower leg with fat layer exposed
CPT/HCPCS: 29581

== ENCOUNTER 2025-05-05 11:23 | Outpatient (OUT) | payer MEDICARE, SELFPAY ==
--- OUTSIDE RECORDS SUMMARY | 2024-12-02 05:30 | XMS_ITS ---
Author Organization The [facility] in [place] Address [address] [place] [address] Care Team Providers Care Pararescue Manager Name Role Phone Mckayla Blas CNP Primary Care Provider Unavail Armando Carroll Unavailable [phone] REASON FOR VISIT 1YEAR-COPD Encounters Encounter Location Date Provider Diagnosis Pulmonary Medicine [place] [address] [place] [address] 12/02/2024 Armando Yañez Plan Of Treatment No Information Progress Notes * Mitzi MACIAS LDOB:[birth year] (54 yo F)Acc No.[id number]:12/02/2024 UNLOCKED PROGRESS NOTE Follow Up Patient: Mitzi COX :?Armando Yañez, DODOB:1970???Age:54 Y ???Sex:FemaleDate:12/02/2024Phone:[phone]:[address] [place], [place] [address]Pcp:Mckayla Blas CNP Subjective: * Chief Complaints: * 1 . 1YEAR-COPD. * Medical History: Objective: * Vitals: Assessment: Plan: * Treatment: * * Electronic signature of Armando Yañez DO on 05/05/2025 at 11:27 AM EDTSign off status: PendingVisit Status:?N/S N/C (No Show/No Charge) * Provider: Tray Yañez DO Date: 0 12/02/2024 Generated for Printing/Faxing/eTransmitting on:?05/05/2025 11:27 AM EDT
--- OUTSIDE RECORDS SUMMARY | 2025-04-29 14:30 | XMS_ITS | Continuity of Care Document ---
Author Organization [facility] Address [address] [place] [address] Phone Care Team Providers Care Data Warehouse Manager Name Role Phone Mckayla Blas RECEIVER-C Primary Care Provider Price Arora DO Attending Provider Flynn Urias DPM Attending Provider Mckayla Blas RECEIVER-C Attending Provider Care Teams Patient Care Team Team Status: Active Member Role/Relationship Status Dates Mckayla Blas RECEIVER-C Primary Care Provider Active Visit Care Team Team Status: Active Member Role/Relationship Status Dates Mckayla Blas RECEIVER-C Primary Care Provider Active Start: March 25, 2025 Price Arora DOAttbrandee ProviderActiveStart: March 25, 2025 Visit Care Team Team Status: Active Member Role/Relationship Status Dates Mckayla Blas RECEIVER-C Primary Care Provider Active Start: March 26, 2025 JIN Wellsttbrandee ProviderActiveStart: March 26, 2025 Visit Care Team Team Status: Inactive Member Role/Relationship Status Dates Mckayla Blas RECEIVER-C Primary Care Provider Active Start: April 06, 2025 End: April 06, 2025Mckayla Blas NP-CAttensteve ProviderActiveStart: April 06, 2025 End: April 06, 2025 Patient Care Team Team Status: Inactive Member Role/Relationship Status Dates MAURY Arevalo Primary Care Provider Active Start: April 29, 2025 End: April 29, 2025Mckayla Blas NP-CAttending ProviderActiveStart: April 29, 2025 End: April 29, 2025 Chief Complaint and Reason for Visit Chief Complaint Admit Date FollowUp April 06, 2025 3:08pm 3M April 29, 2025 5 :50pm Reason for Visit Admit Date Abdominal wall cellulitis March 3:08pm Morbid (severe) obesity due to excess ca lories April 06, 2025 3:08pm Nicotine dependence, cigaret garrett, with unspecified nicotine-induced disorders April 06, 2025 3:08pm Type 2 diabetes mellitus wit h complication, with long-term current use of April 06, 2025 3:08pm Venous insufficiency April 06 3:08pm Abdominal wall cellulitis April 29, 2025 5:50pm Morbid (severe) obesity due to excess ca lories April 29, 2025 5:50pm Nicotine dependence, cigaret garrett, with unspecified nicotine-induced disorders April 29, 2025 5:50pm Type 2 diabetes mellitus wit h complication, with long-term current use of April 29, 2025 5:50pm Venous insufficiency April 29, 2025 5:50pm Allergies, Adverse Reactions, Alerts Allergen Type Severity Reaction Last Updated Verified Status No Known Allergies Allergy Unknown April 01, 2025 8:02amYesActive Social History Smoking Status Status Start Date End Date Date of Observa tion Smokes tobacco daily (finding) December 13, 2017 2:42pm Observation Status Observation Response Date of Response Legal Sex Female (finding) Sex Assigned At BirthFemaleFebruary 1970Pregnancy StatusNSeptember 2024 Family History Relationship Condition Age at Onset Recorded Date/T isaac father Motor vehicle accident Unknown DeceasedUnknownfamily memberDeceasedUnknownmotherMotor vehicle accidentUnknown DeceasedUnknown Problems Active Problems Problem Diagnosis/Recorded Date Onset Date Stat us Other headache syndrome April 01, 2025 8:23am Un known Active Encounter for smoking cessat ion counseling April 01, 2025 8:18am Unknown Active Candidiasis of breast April 01, 2025 8:06am Unkn own Active Hyperpigmentation of skin April 01, 2025 8:19am Unknown Active RAGHU positive April 01, 2025 8:03am Unknown Active Mixed incontinence April 01, 2025 8:21am Unknown Active Adrenal mass 1 cm to 4 cm in diameter April 01, 2025 8:02am Unknown Active Encounter for subsequent [facility] wellness visit (AWV) in Medicare patient April 01, 2025 8:18am Unknown Active Critical limb ischemia of ri ght lower extremity April 01, 2025 8:17am Unknown Active Insomnia April 01, 2025 8:20am Unknown Active DANIEL (obstructive sleep apnea) April 01, 2025 8:2 3am Unknown Active Cellulitis of left lower extremity April 01 8:15am Unknown Active Morbid (severe) obesity due to excess calories April 01, 2025 8:21am Unknown Active 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 steroid April 01, 2025 8:20am Unknown Active Unilateral primary osteoarth ritis, right hip April 01, 2025 8:27am Unknown Active 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 April 01, 2025 8:19am Unknown Active Non-pressure chronic ulcer o f other part of left lower leg limited to breakdown of skin April 01, 2025 8:23am Unknown Active Nicotine dependence, cigaret garrett, with unspecified nicotine-induced disorders April 02, 2025 2:08pm Unknown Active Radiculopathy, lumbar region April 01, 2025 8:24 am Unknown Active Encounter for screening mamm ogram for malignant neoplasm of breast April 01, 2025 8:18am Unknown Act leobardo Personal history of malignan t neoplasm of cervix uteri April 01, 2025 8:20am Unknown Active Diabetic neuropathy April 01, 2025 8:17am Unknow n Active Abdominal wall cellulitis April 06, 2025 6:07pm Unknown Active Non-seasonal allergic rhinitis April 01, 2025 8: 23am Unknown Active Vaginal yeast infection April 01, 2025 8:28am Un known Active Gout April 01, 2025 8:19am Unknown Active Decreased functional mobility April 01, 2025 8:1 7am Unknown Active Antibiotic-induced yeast infection April 01 8:03am Unknown Active Cardiomegaly April 01, 2025 8:14am Unknown Active Albuminuria April 01, 2025 8:03am Unknown Active Arthritis April 01, 2025 8:04am Unknown Active Vitamin deficiency April 01, 2025 8:28am Unknown Active Myelolipoma of adrenal gland April 01, 2025 8:22 am Unknown Active Hyperlipidemia April 01, 2025 8:19am Unknown Active Kidney stone April 01, 2025 8:20am Unknown Active Chronic diastolic heart failure April 01, 2025 8 :15am Unknown Active Pancreatitis April 01, 2025 8:23am Unknown Active Proteinuria April 01, 2025 8:23am Unknown Active Localized swelling of both lower legs April 01, 2025 8:06am Unknown Active Venous insufficiency April 01, 2025 8:28am Unkno wn Active Cigarette nicotine dependence April 01, 2025 8:1 6am Unknown Active Stasis dermatitis with ulcer of right lower extremity due to peripheral venous hypertension April 01, 2025 8:24am Unknown Active Type 2 diabetes mellitus wit h complication, with long-term current use of insulin April 01, 2025 8:27am Unknown Active Chronic pain of both knees April 01, 2025 8:16am Unknown Active Body mass index (BMI) of 50- 59.9 in adult April 01, 2025 8:06am Unknown Active GERD without esophagitis April 01, 2025 8:18am U nknown Active PAD (peripheral artery disease) April 01, 2025 8 :23am Unknown Active Mild nonproliferative diabet ic retinopathy of both eyes without macular edema associated with type 2 diabetes mellitus April 01, 2025 8:21am Unknown Active COPD (chronic obstructive pu lmonary disease) April 01, 2025 8:16am Unknown Active COPD exacerbation April 01, 2025 8:16am Unknown Active HTN (hypertension) April 01, 2025 8:19am Unknown Active Vitamin D deficiency April 01, 2025 8:28am Unkno wn Active Asthma April 01, 2025 8:04am Unknown Active Medications Medication Status Dose Units Route Directions Qty Days Refills S tart Date Stop Date End Date Reason(s) Instructions Adherence Varenicline Tartrate 1 mg tablet Active 1 MG PO Twice daily 56 1Sept2024 12:00amCigarette nicotine dependence with nicotine-induced disorder Nicotine dependence, cigarettes, with unspecified nicotine-induced disorders UnknownAlbuterol Sulfate 2.5 mg /3 mL (0.083 %) solution for nebulizationActive 2.5MGINHALATIONEVERY 4-6 HOURS as neededApril 05, 2025 12:00amUnknown Ammonium Lactate 12 % cptfhhEfmacu8FFJZXMCDATLGFMigvgLxcgbwtij 28th, 2025 12:00amUnknownCetirizine 10 mg skmjfwKwztjj42ILVQZglls as neededApril 05, 2025 12:00amUnknownAmitriptyline 25 mg jsaulfOjlwta89WNGMZbqve at bedtime April 05, 2025 12:00amUnknownAspirin 81 mg tablet,vlegkibcDzwiiy8QGNZR DailyApril 05, 2025 12:00amUnknownDiclofenac Sodium 75 mg tablet,delayed release (DR/EC)Wgdiht72IWOCTkhyp dailyApril 05, 2025 12:00amUnknown Ergocalciferol (Vitamin D2) 1,250 mcg (50,000 unit) ulwxqmaFutqna38175UTXOGG every weekS2024 12:00amUnknownDuloxetine 60 mg capsule,delayed release(DR/EC)Vmxjoj07HJUZWywib dailyApril 05, 2025 12:00amUnknown Dapagliflozin Propanediol (Farxiga) 10 mg xydyfcIwtkai96BFSOXsathTbgwnmwiq 28th, 2025 12:00amUnknownFurosemide 40 mg raxvulMmeazv56XAGPGsclhXaoxmohzl 28th, 2025 12:00amUnknownIpratropium-Albuterol 0.5 mg-3 mg(2.5 mg base)/3 mL solution for mdkzxeheldktGtcfxo2CWVLMLQJFABKVfi times daily as neededApril 05, 2025 12:00amUnknownLisinopril 20 mg dyyoteGlpaho66PHUCPniuePpgthbrwl 28th, 2025 12:00amUnknownHydralazine 25 mg djvaoyIrotdg44DSHNVbkxg dailyApril 05, 2025 12:00amUnknownOmeprazole 20 mg capsule,delayed release(DR/EC)Fiukld79BRYP DailyApril 05, 2025 12:00amUnknownInsulin Glargine (Lantus Solostar U-100 Insulin) 100 unit/mL (3 mL) insulin rzlCgvtjy75AHQGLELHREIfopr dailyApril 05, 2025 12:00amUnknownRoflumilast 500 mcg ocrjhuAsfbyr801UKMLJLgwioDtqwsbrqf 28th, 2025 12:00amUnknownSimvastatin 10 mg nmvltxMuqyai83BBYPFouyv at bedtime April 05, 2025 12:00amUnknownBaclofen 10 mg qoprljHndcbv95FGNHNdwqb 8 hours as neededApril 05, 2025 12:00amUnknownPregabalin 150 mg capsule Eaockl319DBNWXzaovIrzspurqx 28th, 2025 12:00amUnknownPregabalin (Lyrica) 300 mg viesmtfGjoxds913BRPVOohfi dailyApril 05, 2025 12:00amUnknownTirzepatide (Mounjaro) 15 mg/0.5 mL pen hcgmcnorAnlcrf91BUSBEMFUhqxfz weekS2024 12:00amUnknownNaloxone (Narcan) 4 mg/actuation spray,non-pmrrqclEjfgpa4ZV PSIBLLOLZDV9E as neededApril 05, 2025 12:00amspray 1 dose into ONE nostril; alternate nostrils w each dose until help arrivesUnknownInsulin Glargine (Lantus U-100 Insulin) 100 unit/mL FfrsvoeqYocztwkkoqjb43YFGWYFAABA Twice dailyJune 2017 12:00ept2024 12:53pmHydrocodone- Acetaminophen ([place]) 5-325 mg PzrncrJiqiuq8JSZOGEDIVO 4-6 HOURS as needed for PainJune 2017 12:00amUnknownPotassium Chloride (Klor-Con 10) 10 mEq Tablet Extended AgwqgdrAspcmwsfnvqj20CRRXTMenxl dailyJune 2017 12:00ept2024 12:56pmSimvastatin 20 mg HzhqvpOowwbqpdqjbe72MKTZHxmkw eveningJune 2017 12:002024 1:00pmFurosemide (Lasix) 20 mg Tablet Ukngqrwyvrji49MZKXTwoigJkzi 2017 12:00amSept2024 12:54pm Nortriptyline 50 mg QxajjhdUtzkmckiuatm05RRSXGlbwy at bedtimeJun2017 12:00amSept2024 12:53pmInsulin Lispro (Humalog Kwikpen Insulin) 100 unit/mL Insulin PenActive0.ROUTE.COMPLEXJun2017 12:00am4U <120, 8U >120 AT MEAL TIME; QIDUnknownPregabalin (Lyrica) 300 mg NbtvqnaCqvfswpdlavj272YECF Twice dailyLifebrite [facility]2017 12:00amSept2024 12:55pmNaproxen 500 mg xdccapIuurxpjtgnnr631JHMJTyciz zdezu567Ywdp 7th, 2018 12:00amSept2024 12:53pmadminister with food or milkHydrocodone-Acetaminophen ([place]) 5-325 mg odqxudClddsqhwtbsv6KTQZHR4L063Gpnh 7th, 2018Sept2024 12:52pm Fracture of humerus painFurosemide (Lasix) 20 mg febryiNguzoq08YVSAAlpvv as neededSept2024 12:50pmUnknownPotassium Chloride (Klor-Con 10) 10 mEq tablet extended snggueoRngzbe58NMSWVQpzaoLpkpjdehd 28th, 2025 12:55pmUnknown Relevant Diagnostic Tests and/or Laboratory Data Laboratory Results Test Collection Date/Time Result Date/Time Result Interpretation Reference Range Result Comment Performing Site Basophils # (Auto) March 25, 2025 5:12pm March 25, 2025 5:12pm 0.1 10 3/uL 0.0-0.1Anion GapSept2024 5:12pmSept2024 5:12pm5.1Urine Culture ReflexedSept2024 5:16pmNOErythrocyte Sedimentation Rate March 26, 2025 12:12pmSept2024 12:12pm48 mm/hrAbove high normal<=30C-Reactive Protein, QuantitativeSept2024 12:12pmSept2024 12:12pm3.94 mg/dLAbove high normal<=0.50Anion GapSept2024 12:12pmSept2024 12:12pm8.7Basophils # (Auto)March 26, 2025 12:12pmSept2024 12:12pm0.1 10 3/uL0.0-0.1Basophils (%) (Auto) March 25, 2025 5:12pmSept2024 5:12pm0.4 %0.2-2.0BUN/Creatinine RatioSeptember 2024 5:12pmSept2024 5:12pm16.3Urine Other Casts March 25, 2025 5:16pmSEEN #/LPFAbnormal (applies to non-numeric results) NONE SEENAlbuminSept2024 12:12pmSept2024 12:12pm2.8 g/dL Below low normal3.4-5.0Basophils (%) (Auto)March 26, 2025 12:12pmSept2024 12:12pm0.6 %0.2-2.0Eosinophils # (Auto)March 25, 2025 5:12pm March 25, 2025 5:12pm0.3 10 3/uL0.0-0.7Blood Urea NitrogenSept2024 5:12pmSept2024 5:12pm14.0 mg/dL7.0-18.0Urine Other Crystals March 25, 2025 5:16pmNone Seen #/HPFNone SeenBUN/Creatinine RatioSeptember 2024 12:12pmSept2024 12:12pm21.7Eosinophils # (Auto)March 26, 2025 12:12pmSept2024 12:12pm0.3 10 3/uL0.0-0.7Eosinophils (%) (Auto)March 25, 2025 5:12pmSept2024 5:12pm2.4 %0.9-7.0Calcium LevelSept2024 5:12pmSeptember 2024 5:12pm9.2 mg/dL8.5-10.1 Urine BacteriaSeptember 2024 5:16pmTRACE #/HPFAbnormal (applies to non- numeric results)NONE SEENBlood Urea NitrogenSeptember 2024 12:12pm March 26, 2025 12:12pm15.0 mg/dL7.0-18.0Eosinophils (%) (Auto)March 26, 2025 12:12pmSeptember 2024 12:12pm2.7 %0.9-7.0HematocritSeptember 2024 5:12pmSept2024 5:12pm56.6 %Above high ufeuwm67.0-48.0 Chloride LevelSeptember 2024 5:12pmSeptember 2024 5:40rh419 mmol/L 98-107Urine BilirubinSeptember 2024 5:16pmNEGATIVENEGATIVECalcium Level March 26, 2025 12:12pmSeptember 2024 12:12pm8.6 mg/dL8.5-10.1 HematocritSeptember 2024 12:12pmSept2024 12:12pm52.5 %Above high tiwivj14.0-48.0HemoglobinSeptember 2024 5:12pmSept2024 5:12pm17.4 g/dLAbove high dcfoxv80.0-16.0Carbon Dioxide LevelSeptember 2024 5:12pmSeptember 2024 5:12pm36.9 mmol/LAbove high .0-32.0Urine Occult BloodSeptember 2024 5:16pmNEGATIVENEGATIVEChloride LevelSeptember 2024 12:12pmSept2024 12:09xb840 mmol/I12-282Pljjryyaxx March 26, 2025 12:12pmSeptember 2024 12:12pm16.1 g/dLAbove high kmklak20.0-16.0Immature Granulocyte # (Auto)March 25, 2025 5:12pmSeptember 2024 5:12pm0.04 10 3/uLAbove high normal0.00-0.03CreatinineSept2024 5:12pmSept2024 5:12pm0.86 mg/dL0.55-1.02Urine Appearance March 25, 2025 5:16pmCLEARCLEARCarbon Dioxide LevelSept2024 12:12pmSept2024 12:12pm31.5 mmol/L21.0-32.0Immature Granulocyte # (Auto)March 26, 2025 12:12pmSept2024 12:12pm0.03 10 3/uL 0.00-0.03Immature Granulocyte % (Auto)March 25, 2025 5:12pmSept2024 5:12pm0.3 %0.0-0.5Estimated GFR ()March 25, 2025 5:12pmSept2024 5:12pm>60>=60 mL/min/1.73m 2Urine ColorSeptember 2024 5:16pmLT. YELLOWYELLOWCreatinineSeptember 2024 12:12pmSept2024 12:12pm0.69 mg/dL0.55-1.02Immature Granulocyte % (Auto)March 26, 2025 12:12pmSept2024 12:12pm0.3 %0.0-0.5Lymphocytes # (Auto) March 25, 2025 5:12pmSept2024 5:12pm3.1 10 3/uL1.2-3.8 Estimated GFR (Non- AmericanSeptember 2024 5:12pmSept2024 5:12pm>60>=60 mL/min/1.73m 2Urine Glucose (UA)March 25, 2025 5:16pm NEGATIVE mg/dLNEGATIVEEstimated GFR ()March 26, 2025 12:12pmSept2024 12:12pm>60>=60 mL/min/1.73m 2Lymphocytes # (Auto) March 26, 2025 12:12pmSeptember 2024 12:12pm2.7 10 3/uL1.2-3.8 Lymphocytes (%) (Auto)March 25, 2025 5:12pmSeptember 2024 5:12pm26.4 %20.5-60.0Glucose LevelSeptember 2024 5:12pmSeptember 2024 5:46zu674 mg/dLAbove high umybuk55-837Ddawm Hyaline CastsSeptember 2024 5:16pmRARE Estimated GFR (Non- AmericanSeptember 2024 12:12pmSept2024 12:12pm>60>=60 mL/min/1.73m 2Lymphocytes (%) (Auto)March 26, 2025 12:12pmSeptember 2024 12:12pm27.2 %20.5-60.0Mean Corpuscular Hemoglobin March 25, 2025 5:12pmSeptember 2024 5:12pm27.5 pg26.7-34.0Potassium LevelSeptember 2024 5:12pmSeptember 2024 5:12pm4.0 mmol/L3.5-5.1 Urine KetonesSeptember 2024 5:16pmNEGATIVE mg/dLNEGATIVEGlucose Level March 26, 2025 12:12pmSeptember 2024 12:86rm594 mg/dLAbove high idokyw73-533Cviy Corpuscular HemoglobinSeptember 2024 12:12pmSeptember 2024 12:12pm27.2 pg26.7-34.0Mean Corpuscular Hemoglobin ConcentSeptember 2024 5:12pmSeptember 2024 5:12pm30.7 g/dL29.9-35.2Sodium Level March 25, 2025 5:12pmSeptember 2024 5:21ky066 mmol/I081-684Gqwpb Leukocyte EsteraseSeptember 2024 5:16pmNEGATIVENEGATIVEPotassium Level March 26, 2025 12:12pmSeptember 2024 12:12pm4.2 mmol/L3.5-5.1Mean Corpuscular Hemoglobin ConcentSeptember 2024 12:12pmSeptember 2024 12:12pm30.7 g/dL29.9-35.2Mean Corpuscular VolumeSeptember 2024 5:12pm March 25, 2025 5:12pm89.4 fL81.0-99.0Urine MucusSeptember 2024 5:16pmTRACEAbnormal (applies to non-numeric results)NONE SEENSodium Level March 26, 2025 12:12pmSeptember 2024 12:16bd445 mmol/Y260-888Fopy Corpuscular VolumeSeptember 2024 12:12pmSeptember 2024 12:12pm88.7 fL81.0-99.0Monocytes # (Auto)March 25, 2025 5:12pmSeptember 2024 5:12pm0.6 10 3/uL0.3-0.8Urine NitriteSept2024 5:16pmNEGATIVENEGATIVE Phosphorus LevelSeptember 2024 12:12pmSeptember 2024 12:12pm3.5 mg/dL2.6-4.7Monocytes # (Auto)March 26, 2025 12:12pmSeptember 2024 12:12pm0.5 10 3/uL0.3-0.8Monocytes (%) (Auto)March 25, 2025 5:12pm March 25, 2025 5:12pm5.2 %1.7-12.0Urine pHSept2024 5:16pm8.0 5.0-9.0Monocytes (%) (Auto)March 26, 2025 12:12pmSeptember 2024 12:12pm5.2 %1.7-12.0Mean Platelet VolumeSeptember 2024 5:12pmSeptember 2024 5:12pm12.4 fL9.5-13.5Urine ProteinSept2024 5:10os402 mg/dLAbnormal (applies to non-numeric results)NEG/TRACEMean Platelet Volume March 26, 2025 12:12pmSept2024 12:12pm12.8 fL9.5-13.5 Neutrophils # (Auto)March 25, 2025 5:12pmSept2024 5:12pm7.7 10 3/uLAbove high normal1.4-6.5Urine RBCSept2024 5:57sp4-0 #/HPF0-2 Neutrophils # (Auto)March 26, 2025 12:12pmSept2024 12:12pm6.4 10 3/uL1.4-6.5Neutrophils (%) (Auto)March 25, 2025 5:12pmSept2024 5:12pm65.3 %43.0-75.0Urine Specific GravitySept2024 5:16pm1.020 1.005-1.025Neutrophils (%) (Auto)March 26, 2025 12:12pmSept2024 12:12pm64.0 %43.0-75.0Platelet CountSeptember 2024 5:12pmSept2024 5:17vv530 10 3/zH169-781Vqbcl Squamous Epithelial CellsSept2024 5:16pmFEW #/LPFAbnormal (applies to non-numeric results)NONE/RARE Platelet CountSeptember 2024 12:12pmSept2024 12:73vp110 10 3/uLBelow low -643Qys Blood CountSept2024 5:12pmSept2024 5:12pm6.33 10 6/uLAbove high normal4.20-5.40Urine Urobilinogen March 25, 2025 5:16pm1.0 EU/dL0.2-1.0Red Blood CountSeptember 2024 12:12pmSept2024 12:12pm5.92 10 6/uLAbove high normal4.20-5.40Red Cell Distribution WidthSept2024 5:12pmSept2024 5:12pm 16.4 %Above high xcjmso68.0-15.0Urine WBCSeptember 2024 5:81nd5-0 #/HPF Abnormal (applies to non-numeric results)NONE SEENRed Cell Distribution Width March 26, 2025 12:12pmSept2024 12:12pm16.4 %Above high normal 11.0-15.0Corrected White Blood CountSept2024 5:12pmSept2024 5:12pm11.8 10 3/uLAbove high normal4.0-11.0Corrected White Blood Count March 26, 2025 12:12pmSept2024 12:12pm10.0 10 3/uL4.0-11.0 Vital Signs Vital Reading Result Reference Range Collection Date/Time Body Temperature 98.1 [degF] 97.6-99.0 March 102024 3:37pm Heart Rate 81 /min 60-100 April 06, 2025 3:37pm Respiratory rate 20 /min 12-March 102024 3:37pm Oxygen saturation by Pulse oximetry 92 % 95-100 April 06, 2025 3:37pm BP Systolic 146 mm[Hg] 100-140 April 06, 2025 3:37pm BP Diastolic 84 mm[Hg] 60-100 April 06, 2025 3:37pm Height 65 [in_i] April 29, 2025 5:01mjOruidp654.18 kgOct2024 5:58pmBody Fcydslanahf41.1 [degF]97.6-99.0Oct2024 5:58pmHeart Rate84 /kbg99-864 April 29, 2025 5:58pmRespiratory rate20 /jsl40-67Xkixvnt 22nd, 2025 5:58pm Oxygen saturation by Pulse jpkhazta66 %95-100Oct2024 5:58pmBP Jiaqaxnc028 mm[Hg]100-140April 29, 2025 5:58pmBP Upnxzzdis05 mm[Hg]60-100 April 29, 2025 5:58pmBMI (Body Mass Index)61.0 kg/p5Gcrgkln2024 5:58pm Advance Directives Advance Directive Response Recorded Date/ Time Advance Directives No Sarai 7th, 201 8 3:20pm Insurance Providers Guarantor Mitzi Anaid Macias Address [address] [address]Contact Info.Home Phone: Coverage Status Update:2025 Payer Group Member ID Coverage Type Subscriber Relationship to Subscriber Effective Date Expiration Date Medicaid Id: [id number] L Daniels Id: [id number] [address] [address] Home Phone: Email: DECLINED [employer] Medicaid [id number] Anaid Macias Id: [id number] [address] [address] Home Phone: Email: DECLINED [employer] Id: [id number] Anaid Macias Id: [id number] [address] [address] Home Phone: Email: DECLINED [employer] [place] [id number] L Macias Id: [id number] [address] [address] Home Phone: Email: DECLINED [employer] Dual Compl [id number] Anaid Macias Id: [id number] [address] [id number] Home Phone: Email: DECLINED [employer] Encounters Encounter Location(s) Arrival/Admit Date Discharge/Departure Date Discharge/Departure Disposition Provider(s) Non-patient / Non-visit -[facility] [place] March 25, 2025 5:16pm Braulio Steele-patient / Lsx-kfhmr-Vzrjx [employer] [facility]Sept2024 12:12pmLDEIDRA Thorneeparted Physician/Provider Office Visit -[facility] [place] 3:08pmSept2024 4:00pm Discharged to home care or self care (routine discharge)BAILEE ArevaloC Departed Physician/Provider Office Visit-[facility] [place] 2024 5:50pmOctober 2024 6:29pmDischarged to home care or self care (routine discharge)MAURY Arevalo Recent Diagnosis Onset Date Admit Date Abdominal wall cellulitis Unknown Sept2024 3:08pm Morbid (severe) obesity due to excess calories U nknown April 06, 2025 3:08pm Nicotine dependence, cigaret garrett, with unspecified nicotine-induced disorders Unknown April 06, 2025 3:08pm Type 2 diabetes mellitus wit h complication, with long-term current use of Unknown April 06, 2025 3:0 8pm Venous insufficiency Unknown March 102024 3:08pm Abdominal wall cellulitis Unknown Octobe r 2024 5:50pm Morbid (severe) obesity due to excess calories U nknown April 29, 2025 5:50pm Nicotine dependence, cigaret garrett, with unspecified nicotine-induced disorders Unknown April 29, 025 5:50pm Type 2 diabetes mellitus wit h complication, with long-term current use of Unknown April 29, 2025 5:50p m Venous insufficiency Unknown April 5:50pm Assessments Diagnosis Onset Date Resolution Status Admit Date Abdominal wall cellulitis acuteSeptember 2024 3:08pmMorbid (severe) obesity due to excess calories acuteSeptember 2024 3:08pmNicotine dependence, cigarettes, with unspecified nicotine-induced disordersacuteSeptember 2024 3:08pmType 2 diabetes mellitus with complication, with long-term current use ofacuteSeptember 2024 3:08pmVenous insufficiencyacuteSeptember 2024 3:08pmAbdominal wall cellulitisacuteOctober 2024 5:50pmMorbid (severe) obesity due to excess caloriesacuteOctober 2024 5:50pmNicotine dependence, cigarettes, with unspecified nicotine-induced disordersacuteOctober 2024 5:50pmType 2 diabetes mellitus with complication, with long-term current use ofacuteOctober 2024 5:50pmVenous insufficiencyacuteOctober 2024 5:50pm Plan of Treatment Author [facility]ckayla [facility] HospitalAuthoredSeptember 2024 6:10pmobtain copy of ER notes and CT scan restart lasix 20mg, recheck with pt in a week to see if better no s/s acute abd, this seems to be more in the tissue, no obvious abcess noted Check blood sugars daily, notify the office if <70 or > 200. Take medications (pills or insulin) as directed. Monitor for s/s of low blood sugar (sweaty, dizziness, nausea, vomiting, or shakiness). Watch for increase thirst, urination, and appetite as these can be signs of high blood sugar. Inspect your feet frequently monitor for open wounds, wear proper fitting shoes as well. Pt should attempt to remain as physical active as chronic conditions allow, as well as trying to follow a diet lower in carbohydrates, and simple sugars. meds: insulin, statin, asa, farxiga, tila under the care with endo for this cont with vascular The patient has been advised of the risks of continued smoking: stroke, MS, all forms of cancer, lung disease, and . Options for quitting: cold turkey, hypnosis, acupuncture, nicotine replacement meds (gum, lozenges, and patches), as well as oral meds: buproprion or varenicline . At this time pt is encouraged to evaluate their goals for wanting to quit smoking, and reach out to provider when ready to start this process Discussed with patient their BMI (actual vs recommended). We have discussed lifestyle modifications: attempts to perform phsyical activity as chronic conditions allow, monitor dietary intake: increasing protein/fruits/veggies and lowering carb intake (unless contraindicated). Limit sodas, juices, sugary drinks, as well as alcohol consumption. Author Mckayla [facility] hospitaltal[facility] HospitalAuthoredOctober 2024 7:08amreviewed CT findings from [facility] ER at last visit we restarted lasix 20mg dose Check blood sugars daily, notify the office if <70 or > 200. Take medications (pills or insulin) as directed. Monitor for s/s of low blood sugar (sweaty, dizziness, nausea, vomiting, or shakiness). Watch for increase thirst, urination, and appetite as these can be signs of high blood sugar. Inspect your feet frequently monitor for open wounds, wear proper fitting shoes as well. Pt should attempt to remain as physical active as chronic conditions allow, as well as trying to follow a diet lower in carbohydrates, and simple sugars. meds: insulin, statin, asa, farxiga, tila under the care with endo for this a1c: 8.4% 01/29/25 cont with vascular The patient has been advised of the risks of continued smoking: stroke, MS, all forms of cancer, lung disease, and . Options for quitting: cold turkey, hypnosis, acupuncture, nicotine replacement meds (gum, lozenges, and patches), as well as oral meds: buproprion or varenicline . At this time pt is encouraged to evaluate their goals for wanting to quit smoking, and reach out to provider when ready to start this process Discussed with patient their BMI (actual vs recommended). We have discussed lifestyle modifications: attempts to perform phsyical activity as chronic conditions allow, monitor dietary intake: increasing protein/fruits/veggies and lowering carb intake (unless contraindicated). Limit sodas, juices, sugary drinks, as well as alcohol consumption. Future Tests Future scheduled test information is unavailable Pending Tests Pending diagnostic test information is unavailable Future Visits Future appointment information is unavailable Future Procedures Future procedure information is unavailable Future Medications Future medication information is unavailable Patient Instructions Patient instructions are unavailable
--- OUTSIDE RECORDS SUMMARY | 2025-05-05 11:26 | XMS_ITS | Encounter Summary ---
Author Organization [facility] Address [address] [place] [address] Care Team Providers Care Steel Fixer Name Role Phone Ty Amin MD Primary Care Provider [phone] Ty Amin MD Primary Care Provider [phone] Mckayla Blas MACHINE ENGINEER Unavailable [phone] Mckayla Blas MACHINE ENGINEER Unavailable [phone] Encounter Details DateTypeDepartmentCare Team (Latest Contact Info)Jjmvuezldop13/23/2024Clinisync Result Encounter [facility] Unsolicited Andra Alcala PA [address] [place], [place] [id number] Social History Tobacco UseTypesPacks/DayYears UsedDateSmoking Tobacco: Every DayCigarettes Smokeless Tobacco: NeverAlcohol UseStandard Drinks/WeekCommentsNever0 (1 standard drink = 0.6 oz pure alcohol)B1300 Health LiteracyAnswerDate RecordedHow often do you need to have someone help you when you read instructions, pamphlets, or other written material from your doctor or pharmacy?Rarely 08/26/2024Humiliation, Afraid, Rape, and Kick questionnaireAnswerDate Recorded Within the last year, have you been afraid of your partner or ex-partner?No 07/10/2023Within the last year, have you been humiliated or emotionally abused in other ways by your partner or ex-partner?No07/10/2023Within the last year, have you been kicked, hit, slapped, or otherwise physically hurt by your partner or ex-partner?No07/10/2023Within the last year, have you been raped or forced to have any kind of sexual activity by your partner or ex-partner?No07/10/2023 Social Connection and Isolation PanelAnswerDate RecordedIn a typical week, how many times do you talk on the phone with family, friends, or neighbors?More than three times a week08/26/2024How often do you get together with friends or relatives?Once a week08/26/2024How often do you attend lutheran or nondenominational services?More than 4 times per year08/26/2024Do you belong to any clubs or organizations such as lutheran groups, unions, fraternal or athletic groups, or school groups?No08/26/2024How often do you attend meetings of the clubs or organizations you belong to?Never08/26/2024re you , , , , never , or living with a partner?Hxxclqb4908/26/2024UDIT-C AnswerDate RecordedQ1: How often do you have a drink containing alcohol?Monthly or less08/26/2024Q2: How many drinks containing alcohol do you have on a typical day when you are drinking?1 or Q3: How often do you have six or more drinks on one occasion?Never08/26/2024Overall Financial Resource Strain (CARDIA) AnswerDate RecordedHow hard is it for you to pay for the very basics like food, housing, medical care, and heating?Not hard at all08/26/2024PHQ-2AnswerDate RecordedPatient Health Questionnaire-2 Tnsdq594[facility] Occup[facility] - Occupational Stress QuestionnaireAnswerDate RecordedDo you feel stress - tense, restless, nervous, or anxious, or unable to sleep at night because yourmind is troubled all the time - these days?Only a jvvmxk4808/26/2024 Exercise Vital SignAnswerDate RecordedOn average, how many days per week do you engage in moderate to strenuous exercise (like a brisk walk)?0 days08/26/2024On average, how many minutes do you engage in exercise at this level?10 min 02/18/2025Hunger Vital SignAnswerDate RecordedWithin the past 12 months, you worried that your food would run out before you got the money to buymore.Never true08/26/2024Within the past 12 months, the food you bought just didn't last and you didn't have money to get more.Never true08/26/2024PRAPARE - TransportationAnswerDate RecordedIn the past 12 months, has lack of transportation kept you from medical appointments or from getting medications?No 08/26/2024In the past 12 months, has lack of transportation kept you from meetings, work, or from getting things needed for daily living?No08/26/2024 Housing Stability Vital SignAnswerDate RecordedIn the last 12 months, was there a time when you were not able to pay the mortgage or rent on time?No07/10/2023 Number of Places Lived in the Last YearNot on file07/10/2023In the last 12 months, was there a time when you did not have a steady place to sleep or slept in [facility] (including now)?No07/10/2023Housing Stability Vital SignAnswerDate RecordedIn the last 12 months, was there a time when you were not able to pay the mortgage or rent on time?No08/26/2024Number of Times Moved in the Last Year Not on file08/26/2024t any time in the past 12 months, were you homeless or living in a long term (including now)?No08/26/2024CommentsUnknownSex and Gender InformationValueDate RecordedSex Assigned at BirthNot on fileLegal Sex Moasmn3109/20/2022 6:50 PM EDTGender IdentityNot on fileSexual OrientationNot on filedocumented as of this encounter Functional Status * AUDIT-C ScoreAnswerDate of LsshrrowlhDroqsn654/18/2025 6:13 PM ESTMychart, Generic * Q1: How often do you have a drink containing alcohol?AnswerDate of Assessment AuthorMonthly or less08/26/2024 6:13 PM ESTMychart, Generic * Q2: How many drinks containing alcohol do you have on a typical day when you are drinking?AnswerDate of AssessmentAuthor1 or 6:13 PM EST Mychart, Generic * Q3: How often do you have six or more drinks on one occasion?AnswerDate of MrwyucxlcnOayeetCloar93/18/2025 6:13 PM Riley Generic * Over the past 2 weeks, how often have you been bothered by any of the following problems?QuestionAnswerDate of AssessmentAuthorLittle interest or pleasure in doing thingsNot at all01/26/2025 6:14 PM Marilyn Gibson MA Feeling down, depressed, or hopelessNot at all01/26/2025 6:14 PM Marilyn Gibson MAPatient Health Questionnaire-2 Zxfen563 6:14 PM EDT Marilyn Forman MA * QuestionAnswerDate of AssessmentAuthorPatient Health Questionnaire-9 Score1 01/26/2025 4:13 PM EDJavon, Generic * Trouble falling or staying asleep, or sleeping too muchAnswerDate of AssessmentAuthorNot at all01/26/2025 4:13 PM EDJavon, Generic * Feeling tired or having little energyAnswerDate of AssessmentAuthorNot at all 01/26/2025 4:13 PM EDJavon, Generic * Poor appetite or overeatingAnswerDate of AssessmentAuthorNot at all01/26/2025 4:13 PM EDJavon, Generic * Feeling bad about yourself - or that you are a failure or have let yourself or your family downAnswerDate of AssessmentAuthorNot at all01/26/2025 4:13 PM EDT Miguel, Generic * Trouble concentrating on things, such as reading the newspaper or watching televisionAnswerDate of AssessmentAuthorNot at all01/26/2025 4:13 PM EDT Miguel, Generic * Moving or speaking so slowly that other people could have noticed? Or the opposite - being so fidgety or restless that you have been moving around a lot more than usual.AnswerDate of AssessmentAuthorNot at all01/26/2025 4:13 PM EDT Miguel, Generic * Thoughts that you would be better off or hurting yourself in some way AnswerDate of AssessmentAuthorNot at all01/26/2025 4:13 PM Wiliam Aguirre * How difficult have these problems made it for you to do your work, take care of things at home, or get along with other people?AnswerDate of Assessment AuthorNot difficult at all01/17/2024 10:08 AM Marilyn Gibson MA documented as of this encounter Plan of Treatment DateTypeDepartmentCare Team (Latest Contact Info)Vfmiopwgahu10/20/2025 10:30 AM ESTOffice Visit [facility] [address] [place] [address] Rain Souza MD [address] [place] [address] documented as of this encounter Procedures Procedure NamePriorityDate/TimeAssociated DiagnosisCommentsBLOOD CULTURE 2 Zydmcfc8609/10/2023 2:22 PM EST BLOOD CULTURE 6Tbsprnh40/04/2024 2:05 PM EST ECG 12-LEAD08/31/2023 6:08 PM EST documented in this encounter Results * BLOOD CULTURE 2 (09/10/2023 2:22 PM EST)ComponentValueRef RangeTest Method Analysis TimePerformed AtPathologist SignatureBLOOD CULTURE 2 ??Blood Culture 2 NG5D NO GROWTH AT 5 DAYS.^NO GROWTH AT 5 DAYS. TBHSpecimen (Source)Anatomical Location / LateralityCollection Method / Volume Collection TimeReceived Time09/10/2023 2:22 PM EST09/10/2023 2:29 PM EST Narrative [facility] - 09/16/2023 1:07 PM EDT Authorizing ProviderResult TypeResult StatusGeneric External Data ProviderLAB BLOOD ORDERABLESFinal ResultPerforming OrganizationAddressCity/State/ZIP Code Phone Number [facility] * BLOOD CULTURE 1 (09/10/2023 2:05 PM EST)ComponentValueRef RangeTest Method Analysis TimePerformed AtPathologist SignatureBLOOD CULTURE 1 ??Blood Culture 1 NG5D NO GROWTH AT 5 DAYS.^NO GROWTH AT 5 DAYS. TBHSpecimen (Source)Anatomical Location / LateralityCollection Method / Volume Collection TimeReceived Time09/10/2023 2:05 PM EST09/10/2023 2:28 PM EST Narrative [facility] - 09/16/2023 1:07 PM EDT Authorizing ProviderResult TypeResult StatusGeneric External Data ProviderLAB BLOOD ORDERABLESFinal ResultPerforming OrganizationAddressCity/State/ZIP Code Phone Number [facility] * ECG 12-LEAD (08/31/2023 6:08 PM EST)Anatomical RegionLateralityModalityOther Specimen (Source)Anatomical Location / LateralityCollection Method / Volume Collection TimeReceived Time08/31/2023 6:08 PM EST Narrative 09/02/2023 7:32 AM EST [facility] ?[address] ? [place] [id number] ? Electrocardiograph Report ? Signed ? Patient: MITZI MACIAS L ?MR#: [id number] ?? : 1970 ?Acct:[id number] ?? Age/Sex: 53 / F ?ADM Date: 08/31/23 ?? Loc: MS ??214-1 ? Attending Dr: Jacqueline Becerra D.O. ? Ordering Physician: Andra Alcala ?? Date of Service: 08/31/23 ?? Procedure(s): ECG 12 lead ?? Accession Number(s): [id number] ? cc: ?[facility] ? Test Date: ?2023-08-31 ?? Pat Name: ? MITZI MACIAS ?Department: ? Room: ? - ?? Gender: ? Female ? 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 : ?1970 ? Requested By: MCKAYLA BERMUDEZHHOLZ ?? Order Number: [id number] ?Reading MD: ?? LAURI ??BALL ? Measurements ?? Intervals ?[place] ? Rate: ? 102 ?P: ?67 ?? OR: ? 144 ?QRS: ?52 ?? QRSD: ? 72 ? T: ?49 ?? QT: ? 326 ? QTc: ?385 ? Interpretive Statements ?? 1120 Sinus tachycardia ?? 4068 Nonspecific Twave abnormality ?? 8102 Low QRS voltage in chest leads ?? 9140 ??abnormal rhythm ECG ? Compared to ECG 12/04/2022 21:27:48 ?? Electronically Signed On 09-02-2023 7:31:43 EST by LAURI ??BALL ? Dictated By: ?Lauri Dior D.O. ? Signed By: ?09/02/23 0732 ? DD/ 1808 ? TD/TT: ? Perioperative Tech: Procedure Note Radiology, Radiologist, MD - 09/02/[address] [address] Electrocardiograph Report Signed Patient: MITZI MACIAS LMR#: [id number] : 1970Acct:[id number] Age/Sex: 53 / FADM Date: 08/31/23 Loc: [place] 214-[address]: Jacqueline Becerra D.O. 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 Signed By:09/02/23 0732 DD/ 1808 TD/TT: Perioperative Tech: Authorizing ProviderResult TypeResult StatusAmy Cari [facility]ITALYNC IMAGINGFinal Result documented in this encounter Visit Diagnoses Not on filedocumented in this encounter Care Teams Team MemberRelationshipSpecialtyStart DateEnd Date Ty Amin MD PCP - GeneralFamily Medicine Ty Amin MD PCP - GeneralFamily Medicine09/20/23 Mckayla Blas NP [address] [place] [address] [facility]/ Mckayla Blas NP Nurse PractitionerFamiMemorial Health University Medical Center09/20/23documented as of this encounter
--- OUTSIDE RECORDS SUMMARY | 2025-05-05 11:27 | XMS_ITS | Patient Health Record ---
Author Organization [facility] [place] Address [address] [place] [address] Care Team Providers Care Lpn Name Role Phone Mckayla Blas CNP Primary Care Provider Unavail able Armando Yañez Unavailable [phone] Allergies No Known Allergies Results Component Value Reference Range Notes CBC AUTO DIFF (Not yet revie wed by provider) Interpretation: Performing Lab: Notes/Report: [facility] , White Blood Count 12.8 4.0-11.0 10 3/uL Red Blood Count5.524.20-5.40 10 6/bFKvpexaxkuh30.112.0-16.0 g/lWJmrzmznpny58.9 36.0-48.0 %Mean Corpuscular Vapesh77.281.0-99.0 fLMean Corpuscular Hemoglobin 29.226.7-34.0 pgMean Corpuscular HGB Conc31.629.9-35.2 g/dLRed Cell Distribution Width14.611.0-15.0 %Platelet Rbxql410039-550 10 3/uLMean Platelet Zdkvaw66.89.5- 13.5 fLNeutrophils Percent Auto67.043.0-75.0 %Lymphocytes Percent Auto25.120.5- 60.0 %Monocytes Percent Auto5.21.7-12.0 %Eosinophils Percent Auto1.90.9-7.0 % Basophils Percent Auto0.50.2-2.0 %Immature Granulocytes Pct Auto0.30.0-0.5 % Neutrophils Absolute Auto8.61.4-6.5 10 3/uLLymphocytes Absolute Auto3.21.2-3.8 10 3/uLMonocytes Absolute Auto0.70.3-0.8 10 3/uLEosinophils Absolute Auto0.20.0- 0.7 10 3/uLBasophils Absolute Auto0.10.0-0.1 10 3/uLImmature Granulocytes Abs Auto0.040.00-0.03 10 3/uLPerforming Lab:see noteML - [facility] LB PROF CHEM 8 (BAS METB) (Not yet reviewed by provider) Interpretation: Performing Lab: Notes/Report: [facility] ,Fvmdoi750857-137 mmol/LPotassium4.23.5-5.1 mmol/XXgizxnkd76071-190 mmol/LCarbon Qgzzzvl35.521.0-32.0 mmol/LAnion Gap11.6Dpiswtf38371-636 mg/dLBlood Urea Adijqbsv99.07.0-18.0 mg/dLCreatinine0.820.55-1.02 mg/dLEstimated GFR ( Katty>60>=60 mL/min/1.73m 2Estimated GFR (Non- Kristen>60>=60 mL/min/1.73m 2BUN Creatinine Ratio19.6Bugtqcv4.08.5-10.1 mg/dLPerforming Lab:see noteML - [facility] LB Reason For Referral No Information Medications Medication SIG (Take, Route, Frequency, Duration) Notes Start Date End Date Status Varenicline Tartrate(Continu e) 1 MG as directed Orally BID; Duration: 30 days Dispense #1 pack (begin after completing starter pack) 12/05/2023 ActiveLantus SoloStar 100 UNIT/MLINJECT 58 UNITS SUBCUTANEOUSLY TWICE A DAY Subcutaneous; Duration: 90 DaysActiveHYDROcodone-Acetaminophen 5-325 MGOral; Duration: 30 DaysActivehydrALAZINE HCl 25 MGTAKE 1 TABLET BY MOUTH TWICE A DAY Oral; Duration: 90 DaysActiveFarxiga 10 MGOral; Duration: 90 DaysActive Amitriptyline HCl 25 MGTAKE 1 TABLET BY MOUTH EVERYDAY AT BEDTIME Oral; Duration: 90 DaysActiveAlbuterol Sulfate HFA 108 (90 Base) MCG/ACT1 puff as needed Inhalation every 4 hrsActivePotassium Chloride ER 10 MEQOral; Duration: 90 DaysActiveAlbuterol Sulfate (2.5 MG/3ML) 0.083%3 mL as needed Inhalation every 6 hrs12/05/2023ctiveMounjaro 10 MG/0.5MLSubcutaneous; Duration: 84 Days ActiveLisinopril 20 MGOral; Duration: 90 DaysActiveVarenicline Tartrate (Starter) 0.5 MG X 11 & 1 MG X 42as directed Orally BID; Duration: 25 days Dispense #1 pack12/05/2023ctiveCVS Aspirin Adult Low Dose 81 MGCHEW 1 TABLET (81 MG) DAILY Oral; Duration: 90 DaysActiveCVS Allergy Relief(Cetirizine) 10 MG TAKE 1 TABLET (10 MG) BY MOUTH DAILY. Oral; Duration: 90 DaysActiveVitamin D (Ergocalciferol) 1.25 MG (92225 UT)Oral; Duration: 90 DaysActiveBreztri Aerosphere 160-9-4.8 MCG/ACTInhalation; Duration: 30 DaysActiveSimvastatin 10 MG Oral; Duration: 90 DaysActiveRoflumilast 250 MCGOral; Duration: 28 DaysActive Immunizations Vaccine Route Administration Date Status Comme nts Flu, Fluzone (16118) 6-35mo, multi-dose vial (8634-0036) Unknown 05/18/2023 Administered Pneumococcal (Pneumovax 23)Lawjqel5504/16/20179140DiqcsptfqnirHEWY-CEC-0 (COVID 19 Pfizer 30mcg/0.3mL)Qpbloov6507/19/2021dministered Social History Tobacco Use: Social History Observation Description Date Details (start date - stop date) Current Smoker NA - NA Tobacco Control (Standard) Question Answer Notes Tobacco use: Current every day smoker Additional Findings: Tobacco userModerate cigarette smoker (10-19 cigs/day) Problems Problem Type SNOMED Code ICD Code Onset Dates Problem Status W/U Status Risk Notes Problem Foot ulcer due to ty pe 2 diabetes mellitus (3711717432518) Type 2 diabetes mellitus with foot ulcer (E11.621) ActiveconfirmedProblemMorbid obesity (disorder) (892633885)Morbid (severe) obesity due to excess calories (E66.01)ActiveconfirmedProblemVenous ulcer of lower extremity due to chronic peripheral venous hypertension (699387421442350) Chronic venous hypertension (idiopathic) with ulcer of left lower extremity (I87.312)ActiveconfirmedProblemChronic non-pressure ulcer of calf extending to fat level (39799984533019815)Non-pressure chronic ulcer of other part of right lower leg with fat layer exposed (L97.812)ActiveconfirmedProblemChronic ulcer of skin of lower leg (disorder) (29366738874537647)Non-pressure chronic ulcer of other part of left lower leg limited to breakdown of skin (L97.821)Active confirmedProblemNon-pressure chronic ulcer of other part of left lower leg with fat layer exposed (L97.822)ActiveconfirmedProblemLong-term current use of inhaled steroid (388289489)halfway (current) use of inhaled steroids (Z79.51) ActiveconfirmedProblemCOPD - Chronic obstructive pulmonary disease (15156579) COPD (chronic obstructive pulmonary disease) (J44.9)ActiveconfirmedProblem Gastroesophageal reflux disease (003906556)GERD (gastroesophageal reflux disease) (K21.9)ActiveconfirmedProblemHypertension (25228792)HTN (hypertension) (I10)ActiveconfirmedProblemObstructive sleep apnea syndrome (27205998)DANIEL (obstructive sleep apnea) (G47.33)ActiveconfirmedProblemLumbar radiculopathy (347090059)Lumbar radiculopathy (M54.16)ActiveconfirmedProblemDiabetes mellitus type 2 (disorder) (44287973)DM2 (diabetes mellitus, type 2) (E11.9)Active confirmedProblemMental disorder caused by drug (505454475)Cigarette nicotine dependence with nicotine-induced disorder (F17.219)ActiveconfirmedProblem Leukocytosis (505226253)Leukocytosis (D72.829)ActiveconfirmedProblemAcute exacerbation of chronic obstructive airways disease (254965319)COPD with exacerbation (J44.1)ActiveconfirmedProblemLong-term current use of insulin (095634164)Current use of insulin (Z79.4)ActiveconfirmedProblemIdiopathic chronic venous hypertension of both lower extremities with ulcer (I87.313)Active confirmedProblemNon-prs chr ulcer oth prt l low leg limited to brkdwn skin (L97.821)ActiveconfirmedProblemStasis dermatitis co-occurrent with venous ulcer of right lower extremity due to chronic peripheralvenous hypertension (511660163084720)Idiopathic chronic venous hypertension of right lower extremity with ulcer (I87.311)ActiveconfirmedProblemChronic venous hypertension with ulcer and inflammation involving left side (I87.332)ActiveconfirmedProblemAbnormal arterial blood gas (836075265)Elevated carbon dioxide level (R79.81)Active confirmedProblemSkin ulcer of right knee, limited to breakdown of skin (L97.811) ActiveconfirmedProblemDiabetes mellitus (03117452)Diabetes mellitus (E11.9) Activeconfirmed Encounters Encounter Location Date Provider Diagnosis Pulmonary Medicine [address] [address] 12/02/2024 Armando Yañez Plan Of Treatment Pending Test Test Name Order Date CBC AUTO DIFF 08/27/2024 PROF CHEM 8 (BAS METB) 08/27/2024 VC SEGMENTAL PRESSURES 04/24/2024 Insurance Providers Payer Name Payer Address Payer Phone Subscriber Number Group Number Insured Name Patient Relationship to Insured Coverage Start Date Coverage End Date [facility] [employer]ICARE [address] [place] [phone] [id number] Ottoniel Macias - patient is the insured Medical (General) History Medical History History ICD Code COPD (chronic obstructive pulmonary dise ase) J44.9 LVH (left ventricular hypertrophy) I51.7 HTN (hypertension) I10 DANIEL (obstructive sleep apnea) G47.33 Chronic diastolic congestive heart failu re I50.32 Cigarette nicotine dependence with nicot ine-induced disorder F17.219 DM2 (diabetes mellitus, type 2) E11.9 HLD (hyperlipidemia) E78.5 Elevated carbon dioxide level R79.81 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
--- OUTSIDE RECORDS SUMMARY | 2025-05-05 11:27 | XMS_ITS | Clinical Summary ---
Author Organization [facility] Address [address] [place] [address] Care Team Providers Care Human Resources Admin Name Role Phone Ty Amin MD Primary Care Provider [phone] Mckayla Blas NP Unavailable [phone] Allergies No known active allergies Medications MedicationSigDispense QuantityRefillsLast FilledStart DateEnd DateStatus albuterol HFA 90 mcg/act inhaler Inhale 2 puffs every 4 (four) hours if needed for wheezingActive pen needle 32G x 5 mm misc Inject 5 each under the skin 1 (one) time each day Use as instructedActive albuterol (2.5 MG/3ML) 0.083% nebulizer solution Take 2.5 mg by nebulization every 6 (six) hours if needed for wheezingActive HYDROcodone-acetaminophen ([place]) 5-325 MG tablet 1 tablet as needed in the morning and 1 tablet as needed at noon and 1 tablet as needed in the evening for severe pain.Active diclofenac (Voltaren) 75 MG EC tablet Take 75 mg by mouth in the morning and 75 mg before bedtime. Do not crush, chew, or split. .Active oxygen (O2) gas Inhale 2 L/min continuously via nasal canulaActive ipratropium-albuterol (Duo-Neb) 0.5-2.5 mg/3 mL nebulizer solution Daily as neededActive Insulin Lispro (HUMALOG KWIKPEN SC) Inject under the skin in the morning and at noon and in the evening. Inject before meals. 8-10-12 units before meals and sliding scale.Active pregabalin (Lyrica) 300 MG capsule Indications:Diabetic polyneuropathy associated with type 2 diabetes mellitus (HCC)Take 1 capsule (300 mg) by mouth in the morning and 1 capsule (300 mg) before bedtime. 60 capsule 4Active Accu-Chek Guide Test test strip Indications:Type 2 diabetes mellitus with other circulatory complications ([facility]) USE TO TEST BLOOD SUGAR 4 TIMES DAILY 400 strip 4Active baclofen (Lioresal) 10 MG tablet Take 10 mg by mouth in the morning and 10 mg in the evening and 10 mg before bedtime.4Active naloxone (Narcan) 4 mg/0.1 mL nasal spray Administer 4 mg into affected nostril(s) if ulipgk504Active nicotine (Nicoderm, Step 1) 21 MG/24HR patch Indications:Encounter for smoking cessation counselingPlace 1 patch over 24 hours on the skin 1 (one) time each day at the same time May either leave patch on 24 hours, or apply in the morning and take of at bedtime, rotate sites 30 patch 5Active pregabalin (Lyrica) 150 MG capsule Take 150 mg by mouth Daily5Active ammonium lactate (Lac-Hydrin) 12 % lotion 5Active HySept 0.25 % external solution APPLY TO GAUZE AND PLACE ON RIGHT LOWER LEG ULCERS, CHANGE DAILY5Active predniSONE (Deltasone) 10 MG tablet 4 TABS X3 DAYS, 3TABS X3 DAYS, 2 TABS X3 DAYS, 1 TAB X3 DAYS, 1/2 TAB X4 DAYS 5Active ergocalciferol (Vitamin D2) 1.25 MG (34624 UT) capsule Indications:Vitamin D deficiency, unspecifiedTake 1 capsule (1.25 mg) by mouth 1 (one) time per week 12 capsule 5Active sulfamethoxazole-trimethoprim (Bactrim DS) 800-160 MG per tablet TAKE 1 TABLET BY MOUTH TWICE A DAY FOR 14 DAYS5Active amitriptyline (Elavil) 25 MG tablet Indications:InsomniaTake 1 tablet (25 mg) by mouth at bedtime 90 tablet 5Active aspirin 81 MG chewable tablet Indications:Type 2 diabetes mellitus with complication, with long-term current use of insulin ([facility])Chew 1 tablet (81 mg) Daily 90 tablet 5Active cetirizine (ZyrTEC) 10 MG tablet Indications:Non-seasonal allergic rhinitis, unspecified triggerTake 1 tablet (10 mg) by mouth Daily 90 tablet 5Active dapagliflozin (Farxiga) 10 MG Indications:Type 2 diabetes mellitus with unspecified complications (HCC)Take 1 tablet (10 mg) by mouth Daily 90 tablet 5Active DULoxetine (Cymbalta) [address] capsule Indications:Anxiety and depressionTake 1 capsule (60 mg) by mouth in the morning and 1 capsule (60 mg) before bedtime. Do not crush or chew. 180 capsule 5Active fluconazole (Diflucan) 150 MG tablet Indications:Antibiotic-induced yeast infectionOne time dose, repeat in 3 days . Do not take cholesterol pill while taking this medication. Once finished then resume 2 tablet 5Active furosemide (Lasix) 20 MG tablet Indications:Bilateral lower extremity edemaTake 1 tablet (20 mg) by mouth Daily as needed (edema) Take in the afternoon as needed 90 tablet 5Active furosemide (Lasix) 40 MG tablet Indications:Bilateral lower extremity edemaTake 1 tablet (40 mg) by mouth Daily 90 tablet 5Active hydrALAZINE (Apresoline) 25 MG tablet Indications:Primary hypertensionTake 1 tablet (25 mg) by mouth in the morning and 1 tablet (25 mg) before bedtime. 180 tablet 5Active lisinopril 20 MG tablet Indications:Primary hypertensionTake 1 tablet (20 mg) by mouth Daily 90 tablet 5Active omeprazole (PriLOSEC) [address] capsule Indications:Gastro-esophageal reflux disease without esophagitisTake 1 capsule (20 mg) by mouth in the morning. Take before meals. 90 capsule 5Active potassium chloride ER (Micro-K) 10 MEQ ER capsule Indications:Bilateral lower extremity edemaTake 1 capsule (10 mEq) by mouth Daily Take 1 capsule (10 mEq) by mouth in the morning. 90 capsule 5Active Roflumilast 500 MCG tablet Indications:Chronic obstructive pulmonary disease, unspecified (HCC)Take 1 tablet by mouth Daily 90 tablet 5Active simvastatin (Zocor) 10 MG tablet Indications:Hyperlipidemia, unspecifiedTake 1 tablet (10 mg) by mouth at bedtime 90 tablet 5Active insulin glargine (Lantus) 100 UNIT/ML injection Indications:Type 2 diabetes mellitus with hyperglycemia, with long-term current use of insulin ([facility])Inject 58 Units under the skin in the morning and 58 Units before bedtime. 104.4 mL 107501/6Active insulin glargine (Lantus SoloStar) 100 UNIT/ML pen Indications:Type 2 diabetes mellitus with hyperglycemia, with long-term current use of insulin ([facility])INJECT 58 UNITS SUBCUTANEOUSLY TWICE A DAY 105 mL 5Active Tirzepatide (Mounjaro) 15 MG/0.5ML solution auto-injector Indications:Type 2 diabetes mellitus with other circulatory complications ([facility]) Inject 15 mg under the skin 1 (one) time per week 6 mL 5Active varenicline (Chantix) 1 MG tablet Indications:Tobacco user,Encounter for smoking cessation counselingTAKE 1 TABLET BY MOUTH IN THE MORNING AND 1 TABLET BEFORE BEDTIME. TAKE WITH FULL GLASS OF WATER. 60 tablet 5Active Active Problems ProblemNoted DateDiagnosed DateStasis dermatitis with ulcer of right lower extremity due to peripheral venous twxoirxuzmhu37/03/6069Yrwtu84/03/2025 Assessment & Plan (12/09/2024 7:26 AM EDT): Tylenol prn fever Finish atb's Cellulitis of left lower /03/2025 Assessment & Plan (12/09/2024 11:27 AM EDT): Finish atbs Keep appt with wound care A febrile Will call me if worsening in sxs Cigarette nicotine dependence without wbgaagbifaaz95/21/2025 Assessment & Plan (10/27/2024 2:40 PM EDT): Is currently using chantix, and is doing well, less desire, smoking less Vitamin D deficiency, ivhxbpyewhi56/21/2025Gastro-esophageal reflux disease without jnawbbojpjo21/21/2025 Assessment & Plan (01/26/2025 7:51 AM EDT): Recommendations: freq small meals, nothing to eat or drink at least 2 hours prior to bed, limit caffeine, alcohol, as well as spicy foods Meds to limit or avoid if possible: NSAIDS Elevate HOB if possible Current meds: ompeprazole Morbid (severe) obesity due to excess tvgfixew32/19/2025 Assessment & Plan (01/26/2025 6:46 PM EDT): [...] for DM Body mass index (BMI) 50.0-59.9, adult08/27/2024Idiopathic chronic venous hypertension of both lower extremities with ulcer08/27/2024 Assessment & Plan (08/27/2024 7:32 AM EST): Follows with wound, legs are wrapped, 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 as possible detention current use of inhaled omtqrbc3608/27/2024Non-pressure chronic ulcer of other part of left lower leg limited to breakdown of skin08/27/2024Vitamin xdrxofbhth89/19/2025ntibiotic-induced yeast /19/2025hronic diastolic heart xpcjnsy7108/08/2024 Assessment & Plan (01/26/2025 7:52 AM EDT): Current meds; asa, farxiga, lasix, hydralazine, lisinopril, Follows with cardilogy Reviewed 01/06/25 notes Assessment & Plan (10/27/2024 7:07 AM EDT): Current meds; asa, farxiga, lasix, hydralazine, lisinopril, Follows with cardilogy Reviewed 08/02 notes Assessment & Plan (08/27/2024 7:32 AM EST): Current meds; asa, farxiga, lasix, hydralazine, lisinopril, Follows with cardilogy Reviewed 08/02 notes Myelolipoma of adrenal gland07/14/2024Encounter for smoking cessation counseling 07/14/2024ritical limb ischemia of right lower ncamgfmok78/12/2024 Assessment & Plan (07/14/2024 7:32 PM EST): Saw vascular, does have narrowing in arteries in legs, and thus the wounds not healing At this point they strongly urge to quit smoking or risk limb amputation Cont asa and statin Also good blood pressure and sugar control 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 Does have left OM, will treat for this and if not better can try ubrelvy #3 samples given: Lot [id number], exp 03/2025 Mixed qzztyaeamfbr93/08/8751Xahgualhl86/08/2024Encounter for screening mammogram for malignant neoplasm of tgoidc1311/01/2023Non-seasonal allergic rhinitis 11/01/2023andidiasis of faxnpz3211/01/2023 Assessment & Plan (11/01/2023 11:21 AM EDT): Skin care, Dqtvxrsa37/11/2024 Assessment & Plan (01/26/2025 6:44 PM EDT): elavil Radiculopathy, lumbar hjbixj9509/17/2023 Assessment & Plan (07/14/2024 7:36 PM EST): [...] is necessary they take over prescribing Pancreatitis ([facility])09/17/2023OPD wehwtmlglmaz92/11/2024 Assessment & Plan (12/09/2024 11:26 AM EDT): [...] non labored and no cyanosis noted Venous iuulqzxylqpdy25/11/2024 Assessment & Plan (11/01/2023 11:17 AM EDT): Open wounds refer to [facility] Wound Care Pulmonary lpafirkvokmv53/11/2024 Assessment & Plan (01/26/2025 7:52 AM EDT): Has seen [facility] Cardiology Assessment & Plan (12/09/2024 7:23 AM EDT): Has seen [facility] Cardiology Assessment & Plan (11/15/2023 3:49 PM EDT): Saw [facility] Cardiology See notes Going to see Pulmonary Assessment & Plan (09/27/2023 1:03 PM EDT): Needs to wear her PAP I am also going to have her see [facility] Cardiology as well PAD (peripheral artery disease)09/17/2023 Assessment & Plan (10/27/2024 2:38 PM EDT): Asa, statin Quit smoking BP and DM control Assessment & Plan (07/14/2024 7:32 PM EST): Asa, statin Quit smoking BP and DM control Malignant neoplasm of cervix uteri, qlvtsuqlgou10/11/2024 Assessment & Plan (08/27/2024 7:33 AM EST): Had in the past, had hysterectomy Lnqakguxjvs65/11/2024Unilateral primary osteoarthritis, right hip09/17/2023 Chronic pain of both knees09/17/20234337Xhlepbeuxcwzej31/11/2024 Assessment & Plan (01/26/2025 7:49 AM EDT): On statin therapy Check labs yearly and prn dose changes Assessment & Plan (08/27/2024 7:36 AM EST): On statin therapy Check labs yearly and prn dose changes Decreased functional xrgbymtz76/11/2024drenal mass 1 cm to 4 cm in diameter 09/17/2023 Assessment & Plan (07/14/2024 7:33 PM EST): Continue with Urology Kidney stone09/17/2023 Assessment & Plan (07/14/2024 7:32 PM EST): Continue with Urology Exnkzwyikda73/11/2024Vaginal yeast /09/2024 Assessment & Plan (01/26/2025 6:46 PM EDT): Secondary to double atb for now Obstructive sleep apnea07/10/2023 Assessment & Plan (08/27/2024 7:29 AM EST): [...] reach out to DME for help Diabetic svemzbdasc30/02/2024 Assessment & Plan (01/26/2025 7:53 AM EDT): [...] in 3 months COPD (chronic obstructive pulmonary disease)07/10/2023 Assessment & Plan (01/26/2025 6:44 PM EDT): [...] spiriva Will trial breztri: #2 samples given [id number], exp 03/03, rinse mouth after use Give [...] no changes in inhalers Recommend quitting smoking Pouusg4307/10/2023 Assessment & Plan (01/26/2025 6:44 PM EDT): Current meds: albuterol, duoneb, Has char dust cleaner and salvager 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 Assessment & Plan (08/27/2024 7:30 AM EST): Current meds: albuterol, duoneb, Has char dust cleaner and salvager 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 Assessment & Plan (01/17/2024 12:36 PM EDT): Cont w inhalers, pulmonology Quit smoking Nzetloputfev29/02/2024 Assessment & Plan (01/26/2025 7:52 AM EDT): [...] from hospital, lost script I did contact [facility] in [place], they will get another fill on this and have ready for patient Fu in 4 weeks Assessment & Plan (07/10/2023 11:59 AM EST): Stable on current dose of meds Type 2 diabetes mellitus with complication, with long-term current use of xiqvygi8607/10/2023 Assessment & Plan (01/26/2025 7:50 AM EDT): [...] odonnell for management of diabetes Anxiety and jkrhivpddf66/02/2024 Assessment & Plan (01/26/2025 6:46 PM EDT): Current meds: elavil, duloxtine, Assessment & Plan (12/09/2024 7:24 AM EDT): Current meds: elavil, duloxtine, Assessment & Plan (10/27/2024 7:09 AM EDT): Current meds: elavil, duloxtine, Assessment & Plan (08/27/2024 7:03 PM EST): Current meds: elavil, duloxtine, PHQ 9= 5 IRENE 7=3 Current meds: TCA, and duloxetine Bilateral lower extremity edema07/10/2023 Assessment & Plan (01/26/2025 6:46 PM EDT): [...] discussed skin care regimines as well RAGHU hdjrnchi70/11/6098Xmjnskdsdnql38/19/2018 Overview (09/17/2023): borderline Gout10/25/2017 Resolved Problems ProblemNoted DateDiagnosed DateResolved DateVenous ulcer of right leg06/19/2024 12/09/2024 Assessment & Plan (10/27/2024 2:39 PM EDT): Continue with wound care and management of wound, currently they are using dakins Wound is improving Assessment & Plan (08/27/2024 7:08 PM EST): Continue with wound for treatment Had recent med added Discussed need for tight glucose control as well as QUITTING SMOKING Failure to do so can result in amputation Non-recurrent acute suppurative otitis media of left ear without spontaneous rupture of tympanic hzzkqjtl24lass 3 severe obesity with serious comorbidity and body mass index (BMI) of 50.0 to 59.9 in adult09/27/2023 04/14/20246959Jzvvntzbl16/11/202404/GERD (gastroesophageal reflux disease) Assessment & Plan (10/27/2024 [...] if possible Current med: PPI Lower extremity edema/05/2024Tobacco user/ Assessment & Plan (08/27/2024 7:36 AM EST): The patient has been advised of the risks of continued smoking: stroke, IA, all forms of cancer, lung disease, and . Options for quitting smoking include: cold turkey, hypnosis, acupuncture, nicotine replacement meds(gum, lozenges, and patches), Buproprion, and Varenicline. At this time pt is encouraged to evaluate their goals for wanting to quit smoking, and reach out toprovider when ready to start this process Willing to trial nicotine patches Assessment & Plan (07/14/2024 7:34 PM EST): The patient has been advised of the risks of continued smoking: stroke, IA, all forms of cancer, lung disease, and . Options for quitting smoking include: cold turkey, hypnosis, acupuncture, nicotine replacement meds(gum, lozenges, and patches), Buproprion, and Varenicline. At this time pt is encouraged to evaluate their goals for wanting to quit smoking, and reach out toprovider when ready to start this process Willing to trial nicotine patches Assessment & Plan (04/14/2024 11:43 AM EDT): Urged to quit Assessment & Plan (09/27/2023 1:04 PM EDT): Urged to quit Edema1/4Class 3 severe obesity with serious comorbidity and body mass index (BMI) of 60.0 to 69.9 in adult/bdominal orcrwg43 Encounters DateTypeDepartmentCare IgitPcqnoxnviip16/01/2025Refill [facility] [address] [place] [address] Mckayla Blas NP Tobacco user; Encounter for smoking cessation qnssoixugm29/22/2025Refill [facility] [address] [place] [address] Amber Pinzon LPN Type 2 diabetes mellitus with other circulatory complications (HCC)02/26/2025 Refill [facility] [address] [place] [address] Rain Odonnell MD Type 2 diabetes mellitus with other circulatory complications (HCC)02/18/2025 Abstract [facility] [address] [place] [address] Mckayla Blas NP 02/14/2025Refill [facility] [address] [place] [address] Rain Odonnell MD Type 2 diabetes mellitus with hyperglycemia, with long-term current use of insulin (HCC)from Last 3 Months Immunizations ImmunizationAdministration DatesNext DueInfluenza Whole05/02/2013Influenza, U8A4-633483/09/2017,05/10/2016Influenza, Kjpsyflrxzo41/10/2023,04/16/2017, 05/10/2016Influenza, injectable, qzvgqliqcyrd48/10/2023,05/02/2013MMR01/29/1998 Pneumococcal Polysaccharide [id number] Family History Medical HistoryRelationNameCommentsNo Known ProblemsFatherVaricose veinsFather's SisterMental illnessOtherFamily historyCancerPaternal GrandfatherCancerPaternal GrandmotherHypertensionPaternal GrandmotherRelationNameStatusCommentsBrother AliveFatherDeceasedFather's SisterMotherDeceasedOtherFamily historyPaternal GrandfatherPaternal GrandmotherSister 1AliveSister 2AliveSister 3Deceased Social History Tobacco UseTypesPacks/DayYears UsedDateSmoking Tobacco: Every DayCigarettes Smokeless Tobacco: Never Tobacco Cessation:Ready to Q uit: Not Asked; Counseling Given: Not Answered Alcohol UseStandard Drinks/WeekCommentsNever0 (1 standard drink = 0.6 oz pure alcohol)B1300 Health LiteracyAnswerDate RecordedHow often do you need to have someone help you when you read instructions, pamphlets, or other written material from your doctor or pharmacy?Ructqk3708/26/2024Humiliation, Afraid, Rape, and Kick questionnaireAnswerDate RecordedWithin the last year, have you been afraid of your partner or ex-partner?No07/10/2023Within the last year, have you been humiliated or emotionally abused in other ways by your partner or ex-partner?No07/10/2023Within the last year, have you been kicked, hit, slapped, or otherwise physically hurt by your partner or ex-partner?No07/10/2023Within the last year, have you been raped or forced to have any kind of sexual activity by your partner or ex-partner?No07/10/2023Social Connection and Isolation Panel AnswerDate RecordedIn a typical week, how many times do you talk on the phone with family, friends, or neighbors?More than three times a week08/26/2024How often do you get together with friends or relatives?Once a week08/26/2024How often do you attend jehovah's witness or voodoo services?More than 4 times per year 08/26/2024Do you belong to any clubs or organizations such as jehovah's witness groups, unions, fraternal or athletic groups, or school groups?No08/26/2024How often do you attend meetings of the clubs or organizations you belong to?Never08/26/2024 Are you , , , , never , or living with a partner?Jigjreg6308/26/2024UDIT-CAnswerDate RecordedQ1: How often do you have a drink containing alcohol?Monthly or less08/26/2024Q2: How many drinks containing alcohol do you have on a typical day when you are drinking?1 or Q3: How often do you have six or more drinks on one occasion?Never08/26/2024Overall Financial Resource Strain (CARDIA)AnswerDate RecordedHow hard is it for you to pay for the very basics like food, housing, medical care, and heating?Not hard at all08/26/2024PHQ-2AnswerDate RecordedPatient Health Questionnaire-2 Score0 01/26/2025[facility] [place] [facility] - Occupational Stress QuestionnaireAnswerDate RecordedDo you feel stress - tense, restless, nervous, or anxious, or unable to sleep at night because yourmind is troubled all the time - these days?Only a wxfqxy2308/26/2024Exercise Vital SignAnswerDate Recorded On average, how many days per week do you engage in moderate to strenuous exercise (like a brisk walk)?0 days08/26/2024On average, how many minutes do you engage in exercise at this level?10 min08/26/2024Hunger Vital SignAnswerDate RecordedWithin the past 12 months, you worried that your food would run out before you got the money to buymore.Never true08/26/2024Within the past 12 months, the food you bought just didn't last and you didn't have money to get more.Never true08/26/2024PRAPARE - TransportationAnswerDate RecordedIn the past 12 months, has lack of transportation kept you from medical appointments or from getting medications?No08/26/2024In the past 12 months, has lack of transportation kept you from meetings, work, or from getting things needed for daily living?No08/26/2024Housing Stability Vital SignAnswerDate RecordedIn the last 12 months, was there a time when you were not able to pay the mortgage or rent on time?No07/10/2023Number of Places Lived in the Last YearNot on file 07/10/2023In the last 12 months, was there a time when you did not have a steady place to sleep or slept in ashelter (including now)?No07/10/2023Housing Stability Vital SignAnswerDate RecordedIn the last 12 months, was there a time when you were not able to pay the mortgage or rent on time?No08/26/2024Number of Times Moved in the Last YearNot on file08/26/2024t any time in the past 12 months, were you homeless or living in a senior living (including now)?No08/26/2024 CommentsUnknownSex and Gender InformationValueDate RecordedSex Assigned at BirthNot on fileLegal AlfPhazuw38/15/2023 6:50 PM EDTGender IdentityNot on fileSexual OrientationNot on file Last Filed Vital Signs Vital SignReadingTime TakenCommentsBlood Grojyzoa801/70001/29/2025 9:48 AM EDT Jvwyr0613/24/2025 9:48 AM ANLCqvvybrxibx42.9 ??C (98.5 ??F)01/26/2025 6:11 PM EDTRespiratory Knba424901/29/2025 9:48 AM EDTOxygen Wwmfteevwg99%01/29/2025 9:48 AM EDTInhaled Oxygen Concentration--Cmjzic380 kg (360 lb)01/29/2025 9:48 AM EDT Pdtqvb530.2 cm (5' 7 )01/29/2025 9:48 AM EDTBody Mass Index56.3807 9:48 AM EDT Plan of Treatment DateTypeDepartmentCare Team (Latest Contact Info)Wozsucuzpgb67/20/2025 10:30 AM ESTOffice Visit [facility] [address] [place] [address] Rain Odonnell MD [address] [place] [address] Health MaintenanceDue DateLast DoneCommentsCT Tzrirrydnmei42/17/1971Colonoscopy 1970FIT1970FOBT1970 4354Qztmoppnhbwbk76/17/1971HPV/Rlgjcm3708/25/2000 Pap Smear04/, 10/08/20155002Ayjhstxtg04/07/203406/01/2024, 12/14/2023, 11/22/2022Influenza Vaccine (#1), 05/18/2023, 04/16/2017, Additional history existsColorectal Cancer Lzhygwnyn39/26/2026 FIT-DNA6008/03/2022ervical Cancer ScreeningDiscontinued Procedures Procedure NamePriorityDate/TimeAssociated DiagnosisCommentsMM TOMOSYNTHESIS SCREENING BI12/14/2023 11:21 AM EDT from Last 3 Months or Most Recently Relevant to Health Maintenance Results * MM TOMOSYNTHESIS SCREENING BI (12/14/2023 11:21 AM EDT)Anatomical Region LateralityModalityOtherSpecimen (Source)Anatomical Location / Laterality Collection Method / VolumeCollection TimeReceived Time12/14/2023 11:21 AM EDT Narrative 12/14/2023 11:22 AM EDT [facility] ?[address] ? [place] [address] ? Mammography Report ? Signed ? Patient: MACIAS,SINA L ?MR#: [id number] ?? : 1970 ?Acct:[id number] ?? Age/Sex: 53 / F ?ADM Date: 12/13/23 ?? Loc: MAMMO ? Attending Dr: Mckayla Blas OPTIMIZATION ANALYST ? Ordering Physician: Wan,Mckayla OPTIMIZATION ANALYST ?Results: ? Date of Service: 12/13/23 ?Follow Up: ? Procedure(s): MM tomosynthesis screening BI ?? Accession Number(s): [id number] ? cc: Mckayla Blas OPTIMIZATION ANALYST ? Patient Name: ? SINA MACIAS ? MR#: [id number] ? : 1970 ? Exam Date: 12/13/2023 ?? Ordering Doctor: SAYDA Blas CNP ? RADIOLOGY REPORT ? PROCEDURE: ? MM TOMOSYNTHESIS SCREENING BI ? COMPARISON: ? [facility] MAMM SCREEN 3D ALEX CAD, 11/22/2022. ??[facility] MAMM SCREEN 3D ALEX ?? CAD, 10/25/2021. ??[facility] MAMM SCREEN ALEX W CAD, 08/06/2020. ??[facility] MAMM ALEX SCRN W CAD ?? DIG, 11/06/2014. ? INDICATIONS: ? Screening ? Calculator Name ? NCI Breast Cancer Risk Assessment Tool ?? 5 Year Breast Cancer Risk ? 0.70% ?? Lifetime Breast Cancer Risk ? 5.70% ?? Personal Breast Cancer ?No ?? Personal Ovarian Cancer ? No ?? Treatments ? None ?? Family Cancers ? Grandmother-paternal with ovarian cancer at age ??80; ?? Grandfather-paternal with unknown cancer at age ??75. ? LOCATION: ? [facility] ? BREAST COMPOSITION: ? The breasts are almost entirely fatty. ? FINDINGS: ? DIAGNOSTIC CATEGORY 2--BENIGN FINDING: ? RIGHT BREAST: ??No significant suspicious finding. ??Scattered benign-appearing ?? calcifications are present. ??No significant change has occurred. ? LEFT BREAST: ??No significant suspicious finding. ??Scattered benign-appearing ?? calcifications are present. ??No significant change has occurred. ? RECOMMENDATIONS: ? ROUTINE MAMMOGRAM AND CLINICAL EVALUATION IN 12 MONTHS. ? PLEASE NOTE: ??A NORMAL MAMMOGRAM DOES NOT EXCLUDE THE POSSIBILITY OF BREAST ?? CANCER. ??A CLINICALLY SUSPICIOUS PALPABLE LUMP SHOULD BE BIOPSIED. ? Dictated by: Noel Ivan M.D. on 12/14/2023 at 11:18 ? Approved by: Noel Ivan M.D. on 12/14/2023 at 11:21 ? Dictated By: ?Noel Ivan M.D. ? Signed By: ?12/14/231121 ? DD/ 20 ? TD/TT: ? Boiling Off Winder: Procedure Note Radiology, Radiologist, MD - 12/14/2023 [place] [address] Mammography Report Signed Patient: SINA MACIAS LMR#: [id number] : 1970Acct:[id number] Age/Sex: 53 / FADM Date: 12/13/23 Loc: MAMMO Attending Dr: Mckayla Blas NP Ordering Physician: Mckayla Blas NPResults: Date of Service: 12/13/23Follow Up: Procedure(s): MM tomosynthesis screening BI Accession Number(s): [id number] cc: Mckayla Blas NP Patient Name: SINA MACIAS MR#: [id number] : 1970 Exam Date: 12/13/2023 Ordering Doctor: [...] unknown cancer at age 75. LOCATION: [facility] BREAST COMPOSITION: The breasts are almost [...] M.D. Signed By:12/14/23 1122 DD/ 1121 TD/TT: Boiling Off Winder: Authorizing ProviderResult TypeResult StatusLisa Wan NPCLINISYNC IMAGING Final Result from Last 3 Months or Most Recently Relevant to Health Maintenance Insurance Care Teams Team MemberRelationshipSpecialtyStart DateEnd Date Ty Amin MD PCP - GeneralFamily Medicine09/20/23 Mckayla Blas NP Nurse PractitionerFamily Medicine09/20/23
--- OUTSIDE RECORDS SUMMARY | 2025-05-05 11:27 | XMS_ITS | Encounter Summary ---
Author Organization [facility] Address [address] [place] [address] Care Team Providers Care Network Developer Name Role Phone Ty Amin MD Primary Care Provider [phone] Mckayla Blas NP Unavailable [phone] Mckayla Blas NP Unavailable [phone] Encounter Details DateTypeDepartmentCare Team (Latest Contact Info)Ffwtjiqseqz68/04/2024Clinisync Result Encounter [facility] External Department Unsolicited Provider, Generic External Data Social History Tobacco UseTypesPacks/DayYears UsedDateSmoking Tobacco: Every [...] of sexual activity by your partner or ex-partner?No01/08/2023 Social Connection and Isolation PanelAnswerDate RecordedIn a typical week, how many times do you talk on the phone with family, friends, or neighbors?More than three times a week08/26/2024How often do you get together with friends or relatives?Once a week08/26/2024How often do you attend hinduism or evangelical services?More than 4 times per year08/26/2024Do you belong to any clubs or organizations such as hinduism groups, unions, fraternal or athletic groups, or school groups?No08/26/2024How often do you attend meetings of the clubs or organizations you belong to?Never08/26/2024re you , , , , never , or living with a partner?Qbqzmgl2108/26/2024UDIT-C AnswerDate RecordedQ1: How often do you have [...] heating?Not hard at all08/26/2024PHQ-2AnswerDate RecordedPatient Health Questionnaire-2 Apkwm328[facility] [place] of Occupational Health - Occupational Stress QuestionnaireAnswerDate RecordedDo you feel stress - tense, restless, nervous, or anxious, or unable to sleep at night because yourmind is troubled all the time - these days?Only a uwxjbx1008/26/2024 Exercise Vital SignAnswerDate RecordedOn average, how many days per week do you engage in moderate to strenuous exercise (like a brisk walk)?0 days08/26/2024On average, how many minutes do you engage in exercise at this level?10 min 08/26/2024Hunger Vital SignAnswerDate RecordedWithin the past 12 months, [...] homeless or living in a mcfp (including now)?No08/26/2024CommentsUnknownSex and Gender InformationValueDate RecordedSex Assigned at BirthNot on fileLegal Sex Inzlbg2009/20/2022 6:50 PM EDTGender IdentityNot on fileSexual OrientationNot on filedocumented as of this encounter Functional Status * AUDIT-C ScoreAnswerDate of VnsevtwwdrCjitca283/18/2025 6:13 PM Riley, Generic * Q1: How often do you have a drink containing alcohol?AnswerDate of Assessment AuthorMonthly or less08/26/2024 6:13 PM Riley Generic * Q2: How many drinks containing alcohol do you have on a typical day when you are drinking?AnswerDate of AssessmentAuthor1 or 6:13 PM EST Miguel Generic * Q3: How often do you have six or more drinks on one occasion?AnswerDate of BvwcspzljsOpdwgkYvfmo26/18/2025 6:13 PM Riley, Generic * Over the past 2 weeks, how often have you been bothered by any of the following problems?QuestionAnswerDate of AssessmentAuthorLittle interest or pleasure in doing thingsNot at all01/26/2025 6:14 PM Marilyn Gibson MA Feeling down, depressed, or hopelessNot at all01/26/2025 6:14 PM Marilyn Gibson MAPatient Health Questionnaire-2 Idyjw456 6:14 PM EDT Marilyn Forman MA * QuestionAnswerDate of AssessmentAuthorPatient Health Questionnaire-9 Score1 01/26/2025 4:13 PM EDTMychcyndy, Generic * Trouble falling or staying asleep, or sleeping too muchAnswerDate of AssessmentAuthorNot at all01/26/2025 4:13 PM EDTMychart, Generic * Feeling tired or having little energyAnswerDate of AssessmentAuthorNot at all 01/26/2025 4:13 PM EDTMychcyndy, Generic * Poor appetite or overeatingAnswerDate of AssessmentAuthorNot at all01/26/2025 4:13 PM EDTMychcyndy, Generic * Feeling bad about yourself - or that you are a failure or have let yourself or your family downAnswerDate of AssessmentAuthorNot at all01/26/2025 4:13 PM EDT Mycvictorinot, Generic * Trouble concentrating on things, such as reading the newspaper or watching televisionAnswerDate of AssessmentAuthorNot at 01/26/2025 4:13 PM EDT Mycvictorinot, Generic * Moving or speaking so slowly that other people could have noticed? Or the opposite - being so fidgety or restless that you have been moving around a lot more than usual.AnswerDate of AssessmentAuthorNot at all01/26/2025 4:13 PM EDT Mycvictorinot, Generic * Thoughts that you would be better off or hurting yourself in some way AnswerDate of AssessmentAuthorNot at all01/26/2025 4:13 PM EDJavon, Generic documented as of this encounter Plan of Treatment DateTypeDepartmentCare Team (Latest Contact Info)Gfwtufxsial37/20/2025 10:30 AM ESTOffice Visit [facility] [address] [place] [address] Rain Souza MD [address] [place] [address] documented as of this encounter Procedures Procedure NamePriorityDate/TimeAssociated DiagnosisCommentsCT ABDOMEN PELVIS W CON05/12/2024 2:16 PM EST documented in this encounter Results * CT ABDOMEN PELVIS W CON (05/12/2024 2:16 PM EST)Anatomical RegionLaterality ModalityOtherSpecimen (Source)Anatomical Location / LateralityCollection Method / VolumeCollection TimeReceived Time05/12/2024 2:16 PM EST Narrative 05/12/2024 2:19 PM EST [facility] ?[address] ? [place] [address] ? CT Scan Report ? Signed ? Patient: DIONISIO,MITZI L ?MR#: [id number] ?? : 1970 ?Acct:[id number] ?? Age/Sex: 53 / F ?ADM Date: 05/12/24 ?? Loc: CT ? Attending Dr: Gaviota MAYERS ? Ordering Physician: Gaviota Vega ?? Date of Service: 05/12/24 ?? Procedure(s): CT abdomen pelvis w con ?? Accession Number(s): [id number] ? cc: Mckayla Blas NP ? [facility] ? [address] ? [place] [address] ? Patient Name: ?? MITZI MACIAS ? MRN: [id number] ? date: 1970 ?Sex: F ?? Assigned Patient Location: CT ?? Current Patient Location: WC ?? Accession/Order Number: [id number] ?? Exam Date: 05/12/2024 ??11:15 ?Report Date: 05/12/2024 ??14:16 ? At the request of: ?? GAVIOTA VEGA ? Procedure: ??CT abdomen pelvis w con ? EXAM: CT abdomen pelvis w con ? HISTORY: Abnormal Mass ? COMPARISON: CT abdomen and pelvis 10/05/2022.. ? TECHNIQUE: Following intravenous administration of 1 cc of Omnipaque 300, ?? axial ?? soft tissue windows of the abdomen and pelvis were performed with coronal and ?? sagittal reformats. CT dose reduction technique was used including Automated ?? Exposure Control. ? Findings: ? ABDOMEN: ? There is fatty infiltration of the liver. ? The gallbladder is surgically absent. ? The spleen and pancreas are unremarkable. ? Nonobstructing 0.4 cm stone within the left kidney. No renal collecting system ? or ureteral dilatation bilaterally. ? Unremarkable right adrenal gland. Redemonstrated originating from the left ?? adrenal gland is a 4.4 cm nodule with regions of macroscopic fat density ?? likely ?? relating to a myelolipoma. ? Evaluation of the bowel is limited given the absence of oral contrast. There ?? are colonic diverticula. No bowel obstruction. The appendix is nondilated. ? The aorta is normal caliber. Mild atherosclerotic disease. ? No enlarged abdominal lymph nodes or free abdominal fluid. ? Body wall edema. ? Small fat-containing umbilicus hernia. ? Pelvis: ? Unremarkable bladder. ? The uterus is surgically absent. ? No enlarged pelvic lymph nodes or free pelvic fluid. ? No aggressive sclerotic or lytic osseous lesion. Grade 1 anterolisthesis of L4 ? on L5. Multilevel degenerative spondylosis. Findings are most pronounced ?? extending from L3 caudally through S1. Severe right hip osteoarthritis. ? CT/CT abdomen pelvis w con ?? IMPRESSION: ?? 1. Left adrenal myelolipoma. ?? 2. Nonobstructing left renal stone. ?? 3. Other nonemergent findings, as described above. ? Electronically authenticated by: DAR ??LALO ?? Date: 05/12/2024 ??14:16 ? Dictated By: ?Dar Dai M.D. ? Signed By: ?05/12/24 1419 ? DD/ 1416 ? TD/TT: ? Supervisor Heading: Procedure Note Radiology, Radiologist, MD - 05/12/[address] [address] [address] Scan Report Signed Patient: MITZI MACIAS LMR#: [id number] : 1970Acct:[id number] Age/Sex: 53 / FADM Date: 05/12/24 Loc: CT Attending Dr: Gaviota MAYERS Ordering Physician: Gaviota Vega Date of Service: 05/12/24 Procedure(s): CT abdomen pelvis w con Accession Number(s): [id number] cc: Mckayla Blas NP [place] [address] [place] [id number] Patient Name: MITZI MACIAS MRN: [facility]:[id number] date: 1970 Sex: F Assigned Patient Location: CT Current Patient Location: Accession/Order Number: [id number] Exam Date: 05/12/2024 11:15 Report Date: 05/12/2024 [...] Signed By:05/12/24 1419 DD/ 1416 TD/TT: Supervisor Heading: Authorizing ProviderResult TypeResult StatusGeneric External Data Provider CLINISYNC IMAGINGFinal Result documented in this encounter Visit Diagnoses Not on filedocumented in this encounter Additional Health Concerns AssessmentNoted TimePHQ-9 Depression Total Score: 307 10:08 AM EDT documented as of this encounter Care Teams Team MemberRelationshipSpecialtyStart DateEnd Date Ty Amin MD PCP - GeneralFamily Medicine09/20/23 Mckayla Blas NP [address] [place] [address] PCP - [facility]/ Mckayla Blas NP Nurse PractitionerFamily Medicine09/20/23documented as of this encounter
--- OUTSIDE RECORDS SUMMARY | 2025-05-05 11:27 | XMS_ITS | Encounter Summary ---
Author Organization [facility] Address [address] [place] [address] Care Team Providers Care Jockey'S Agent Name Role Phone Ty Amin MD Primary Care Provider [phone] Mckayla Blas ADVERTISING AGENCY MANAGER Unavailable [phone] Mckayla Blas NP Unavailable [phone] Encounter Details DateTypeDepartmentCare Team (Latest Contact Info)Vbafewhmybm92/07/2024Clinisync Result Encounter [facility] External Department Unsolicited Mckayla Blas NP [address] [place] [address] Social History Tobacco UseTypesPacks/DayYears UsedDateSmoking Tobacco: Every [...] relatives?Once a week08/26/2024How often do you attend baptist or latter day services?More than 4 times per year08/26/2024Do you belong to any clubs or organizations such as baptist groups, unions, fraternal or athletic groups, or school groups?No08/26/2024How often do you attend meetings of the clubs or organizations you belong to?Never08/26/2024re you , , , , never , or living with a partner?Ruadiqp2308/26/2024UDIT-C AnswerDate RecordedQ1: How often do you have [...] heating?Not hard at all08/26/2024PHQ-2AnswerDate RecordedPatient Health Questionnaire-2 Zsjxo026[facility] [place] of Occupational Health - Occupational Stress QuestionnaireAnswerDate RecordedDo you feel stress - tense, restless, nervous, or anxious, or unable to sleep at night because yourmind is troubled all the time - these days?Only a bpzcil5508/26/2024 Exercise Vital SignAnswerDate RecordedOn average, how many [...] steady place to sleep or slept in [place] (including now)?No07/10/2023Housing Stability Vital SignAnswerDate RecordedIn the last 12 months, was there a time when you were not able to pay the mortgage or rent on time?No08/26/2024Number of Times Moved in the Last Year Not on file08/26/2024t any time in the past 12 months, were you homeless or living in a correction (including now)?No08/26/2024CommentsUnknownSex and Gender InformationValueDate RecordedSex Assigned at BirthNot on fileLegal Sex Cctcli0009/20/2022 6:50 PM EDTGender IdentityNot on fileSexual OrientationNot on filedocumented as of this encounter Functional Status * AUDIT-C ScoreAnswerDate of GvntnkvyczNdpzyt102/18/2025 6:13 PM Riley, Generic * Q1: How often do you have a drink containing alcohol?AnswerDate of Assessment AuthorMonthly or less08/26/2024 6:13 PM ESTDinachart, Generic * Q2: How many drinks containing alcohol do you have on a typical day when you are drinking?AnswerDate of AssessmentAuthor1 or 6:13 PM EST Miguel, Generic * Q3: How often do you have six or more drinks on one occasion?AnswerDate of HtnvwpihwcLkhqicWkzte39/18/2025 6:13 PM Wiliam Lin * Over the past 2 weeks, how often have you been bothered by any of the following problems?QuestionAnswerDate of AssessmentAuthorLittle interest or pleasure in doing thingsNot at all01/26/2025 6:14 PM Marilyn Gibson MA Feeling down, depressed, or hopelessNot at all01/26/2025 6:14 PM Marilyn Gibson MAPatient Health Questionnaire-2 Lamxr869 6:14 PM EDT Marilyn Forman MA * [...] in some way AnswerDate of AssessmentAuthorNot at all07/ 4:13 PM Wiliam Aguirre * How difficult have these problems made it for you to do your work, take care of things at home, or get along with other people?AnswerDate of Assessment AuthorNot difficult at 01/17/2024 10:08 AM Marilyn Gibson MA documented as of this encounter Plan of Treatment DateTypeDepartmentCare Team (Latest Contact Info)Fkxynbovjem84/20/2025 10:30 AM ESTOffice Visit [facility] [address] [place] [address] Rain Souza MD [address], [address] [place] [address] documented as of this encounter Procedures Procedure NamePriorityDate/TimeAssociated DiagnosisCommentsMM TOMOSYNTHESIS SCREENING BI12/14/2023 11:21 AM EDT documented in this encounter Results * MM TOMOSYNTHESIS SCREENING BI (12/14/2023 11:21 AM EDT)Anatomical Region LateralityModalityOtherSpecimen (Source)Anatomical Location / Laterality Collection Method / VolumeCollection TimeReceived Time12/14/2023 11:21 AM EDT Narrative 12/14/2023 11:22 AM EDT [facility] ?[address] ? [place] [address] ? Mammography Report ? Signed ? Patient: MACIAS,MITZI L ?MR#: [id number] ?? : 1970 ?Acct:[id number] ?? Age/Sex: 53 / F ?ADM Date: 12/13/23 ?? Loc: MAMMO ? Attending Dr: Mckayla J Aichholz ADVERTISING AGENCY MANAGER ? Ordering Physician: Aichholz,Mckayla ADVERTISING AGENCY MANAGER ?Results: ? Date of Service: 12/13/23 ?Follow Up: ? Procedure(s): MM tomosynthesis screening BI ?? Accession Number(s): [id number] ? cc: Mckayla Blas ADVERTISING AGENCY MANAGER ? Patient Name: ? MITZI MACIAS ? MR#: [id number] ? : 1970 ? Exam Date: 12/13/2023 [...] at age ??75. ? LOCATION: ? [facility] ? BREAST COMPOSITION: ? The breasts [...] on 12/14/2023 at 11:18 ? Approved by: Neol Ivan M.D. on 12/14/2023 at 11:21 ? Dictated By: ?Noel Ivan M.D. ? Signed By: ?12/14/232 ? DD/ 1121 ? TD/TT: ? Water Meter Mechanic: Procedure Note Radiology, Radiologist, - 12/14/2023 [place] [address] Mammography Report Signed Patient: MITZI MACIAS LMR#: [id number] : 1970Acct:[id number] Age/Sex: 53 / FADM Date: 12/13/23 Loc: MAMMO Attending Dr: Mckayla Blas NP Ordering Physician: Mckayla Blas NPResults: Date of Service: 12/13/23Follow Up: Procedure(s): MM tomosynthesis screening BI Accession Number(s): [id number] cc: Mckayla Blas NP Patient Name: MITZI MACIAS MR#: [id number] : 1970 Exam Date: 12/13/2023 Ordering Doctor: SAYDA Blas WORKFORCE STAFFING ADVISOR RADIOLOGY REPORT PROCEDURE: MM TOMOSYNTHESIS SCREENING BI [...] M.D. Signed By:12/14/23 1122 DD/ 1121 TD/TT: Water Meter Mechanic: Authorizing ProviderResult TypeResult StatusLisa Wan NPCLINISYNC IMAGING Final Result documented in this encounter Visit Diagnoses Not on filedocumented in this encounter Care Teams Team MemberRelationshipSpecialtyStart DateEnd Date Ty Amin MD PCP - GeneralFamily Medicine09/20/23 Mckayla Blas NP [address] [place] [address] PCP - [facility]/ Mckayla Blas NP Nurse PractitionerFamily Medicine09/20/23documented as of this encounter
--- OUTSIDE RECORDS SUMMARY | 2025-05-05 11:27 | XMS_ITS | Encounter Summary ---
Author Organization [facility] Address [address] [place] [address] Care Team Providers Care Customer Experience Professional Name Role Phone Ty Amin MD Primary Care Provider [phone] Mckayla Blas NP Unavailable [phone] Mckayla Blas NP Unavailable [phone] Encounter Details DateTypeDepartmentCare Team (Latest Contact Info)Ylpbglrbgpj88/17/2024Clinisync Result Encounter [facility] Unsolicited Provider, [...] relatives?Once a week08/26/2024How often do you attend denominational or oriental orthodox services?More than 4 times per year08/26/2024Do you belong to any clubs or organizations such as denominational groups, unions, fraternal or athletic groups, or school groups?No08/26/2024How often do you attend meetings of the clubs or organizations you belong to?Never08/26/2024re you , , , , never , or living with a partner?Qdkzrpy9608/26/2024UDIT-C AnswerDate RecordedQ1: How often do you have [...] heating?Not hard at all08/26/2024PHQ-2AnswerDate RecordedPatient Health Questionnaire-2 Hojpm245Finhuntsman [facility] institute [place] of Occup[facility] - Occupational Stress QuestionnaireAnswerDate RecordedDo you feel stress - tense, restless, nervous, or anxious, or unable to sleep at night because yourmind is troubled all the time - these days?Only a hddajm3408/26/2024 Exercise Vital SignAnswerDate RecordedOn average, how many [...] homeless or living in a usp (including now)?No08/26/2024CommentsUnknownSex and Gender InformationValueDate RecordedSex Assigned at BirthNot on fileLegal Sex Fdaiiz3909/20/2022 6:50 PM EDTGender IdentityNot on fileSexual OrientationNot on filedocumented as of this encounter Functional Status * AUDIT-C ScoreAnswerDate of TcbcarscwqVwwkgw373/18/2025 6:13 PM Riley, Generic * Q1: How [...] or more drinks on one occasion?AnswerDate of CqlyxyfrtwRvjjfvDqpgr02/18/2025 6:13 PM Riley, Generic * Over the past 2 weeks, how often have you been bothered by any of the following problems?QuestionAnswerDate of AssessmentAuthorLittle interest or pleasure in doing thingsNot at all01/26/2025 6:14 PM Marilyn Gibson MA Feeling down, depressed, or hopelessNot at all01/26/2025 6:14 PM Marilyn Gibson MAPatient Health Questionnaire-2 Zshlc798 6:14 PM EDT Marilyn Forman MA * [...] Plan of Treatment DateTypeDepartmentCare Team (Latest Contact Info)Zudbflecasz34/20/2025 10:30 AM ESTOffice Visit [facility] [address] [place] [address] Rain Souza MD [address] [place] [address] documented as of this encounter Procedures Procedure NamePriorityDate/TimeAssociated DiagnosisCommentsSEGMENTAL BLOOD NDACHQCO85/17/2024 11:20 AM EDT documented in this encounter Results * SEGMENTAL BLOOD PRESSURE (04/24/2024 11:20 AM EDT)Anatomical RegionLaterality ModalityRadiographic ImagingSpecimen (Source)Anatomical Location / Laterality Collection Method / VolumeCollection TimeReceived Time04/24/2024 11:20 AM EDT Narrative 04/24/2024 11:23 AM EDT [facility] ?[address] ? [place] [address] ?Vein Report ? Signed ? Patient: MACIAS,MITZI L ?MR#: [id number] ?? : 1970 ?Acct:[id number] ?? Age/Sex: 53 / F ?ADM Date: 04/24/24 ?? Loc: [facility] ? Attending Dr: Rafael Gongora ? Ordering Physician: Rafael Gongora ?? Date of Service: 04/24/24 ?? Procedure(s): VC SEGMENTAL PRESSURES ?? Accession Number(s): [id number] ? cc: Mckayla Blas NP; Rafael Gongora ? [facility] ? [address] ? [place] [address] ? Patient Name: ?? MITZI MACIAS ? MRN: [id number] ? date: 1970 ?Sex: F ?? Assigned Patient Location: VC ?? Current Patient Location: VC ?? Accession/Order Number: [id number] ?? Exam Date: 04/24/2024 ??10:25 ?Report Date: 04/24/2024 ??11:20 ? At the request of: ?? RAFAEL ??ROLAN ? Procedure: ??VC SEGMENTAL PRESSURES ? EXAM: VC SEGMENTAL PRESSURES ? HISTORY: R09.89 ? COMPARISON: None. ? FINDINGS: ? Segmental pressures presented as follows (right, left) in mmHg. ? Brachial: 169, 166 ?? Upper thigh: Not obtained ?? Lower thigh: 129, 119 ?? Calf: 124, 106 ?? DPA: 108, 105 ?? EXECUTIVE MANAGER: 100, 91 ?? 1st Toe: 124, 142 ? ISABELLE: 0.64, 0.62 ?? TBI: 0.73, 0.84 ? The ABIs are abnormal ?? The TBI's are Acceptable ? PVR waveforms: ? Right leg: ?? Above knee: Moderate ischemia ?? Below knee: Moderate ischemia ?? Right ankle: Moderate ischemia ?? Metatarsal: Severe ischemia ? Left leg: ?? Above knee: Moderate ischemia ?? Below knee: Moderate to severe ?? Right ankle: Moderate ischemia ?? Metatarsal: Moderate ischemia ? VEIN/VC SEGMENTAL PRESSURES ?? IMPRESSION: ? Bilateral diffuse moderate ischemic waveform ? The ABIs consistent with bilateral moderate arterial occlusive disease ? Electronically authenticated by: MARYANNE ??JJ ?? Date: 04/24/2024 ??11:20 ? Dictated By: ?Maryanne Gardner M.D. ? Signed By: ?04/24/243 ? DD/ 1120 ? TD/TT: ? Shower Room Attendant: Procedure Note Radiology, Radiologist, MD - 04/24/[address] [address] Vein Report Signed Patient: MITZI MACIAS LMR#: [id number] : 1970Acct:[id number] Age/Sex: 53 / FADM Date: 04/24/24 Loc: Attending Dr: Rafael Gongora Ordering Physician: Rafael Gongora Date of Service: 04/24/24 Procedure(s): VC SEGMENTAL PRESSURES Accession Number(s): [id number] cc: Mckayla Blas SUPERVISOR METAL CANS; Rafael Gongora The [address] [address] Patient Name: MITZI MACIAS MRN: [id number] date: 1970 Sex: F Assigned Patient Location: Current Patient Location: VC Accession/Order Number: [id number] Exam Date: 04/24/2024 10:25 Report Date: 04/24/2024 11:20 At the request of: RAFAEL GONGORA Procedure: VC SEGMENTAL PRESSURES EXAM: VC SEGMENTAL PRESSURES HISTORY: R09.89 COMPARISON: None. FINDINGS: Segmental pressures presented as follows (right, left) in mmHg. Brachial: 169, 166 Upper thigh: Not obtained Lower thigh: 129, 119 Calf: 124, 106 DPA: 108, 105 EXECUTIVE MANAGER: 100, 91 1st Toe: 124, 142 [...] M.D. Signed By:04/24/24 1123 DD/ 1120 TD/TT: Shower Room Attendant: Authorizing ProviderResult TypeResult StatusGeneric External Data ProviderIMG XR PROCEDURESFinal Result documented in this encounter Visit Diagnoses Not on filedocumented in this encounter Additional Health Concerns AssessmentNoted TimePHQ-9 Depression Total Score: 307/05/2024 10:08 AM EDT documented as of this encounter Care Teams Team MemberRelationshipSpecialtyStart DateEnd Date Ty Amin MD PCP - GeneralFamily Medicine09/20/23 Mckayla Blas NP [address] [place] [address] PCP - [facility]/ Mckayla Blas NP Nurse PractitionerFamily Medicine09/20/23documented as of this encounter
--- OUTSIDE RECORDS SUMMARY | 2025-05-05 11:27 | XMS_ITS | Clinical Summary ---
Author Organization [employer] tem Address [id number] [address] [place] [address] Care Team Providers Care Bean Sorter Name Role Phone Wan Mckayla Rice APRN-ELECTRICAL EQUIPMENT TESTER Primary Care Provider Allergies No known active allergies Medications MedicationSigDispense QuantityRefillsLast FilledStart DateEnd DateStatus vit 10-iron fum-folic 65-1 mg tablet Indications:Morbid obesity (CMS-HCC),Healthcare maintenanceTake 1 tablet by mouth daily. 90 tablet Active albuterol (PROVENTIL,VENTOLIN) 2.5 mg /3 mL (0.083 %) nebulizer solution albuterol sulfate 2.5 mg/3 mL (0.083 %) solution for nebulizationActive albuterol (PROVENTIL HFA;VENTOLIN HFA) 90 mcg/actuation inhaler as needed.Active amitriptyline (ELAVIL) 50 mg tablet Take 1 tablet (50 mg total) by mouth nightly.03/16/2020Active baclofen (LIORESAL) 10 mg tablet Take 10 mg by mouth nightly.03/16/2020Active budesonide-formoteroL (SYMBICORT) 160-4.5 mcg/actuation inhaler Inhale 2 puffs in the morning and 2 puffs before bedtime.Active TRULICITY 1.5 mg/0.5 mL pen injector inject one pen gtnufq9404/12/2020Active DULoxetine (CYMBALTA) 60 mg capsule Take 1 capsule (60 mg total) by mouth in the morning.03/16/2020Active furosemide (LASIX) 40 mg tablet Take 1 tablet (40 mg total) by mouth daily.03/16/2020Active HYDROcodone-acetaminophen (NORCO) 5-325 mg per tablet 2 (two) times a day.Active insulin aspart U-100 (NovoLOG) 100 unit/mL (3 mL) insulin pen Novolog Flexpen U-100 Insulin aspart 100 unit/mL (3 mL) subcutaneousActive insulin glargine (LANTUS, BASAGLAR) 100 unit/mL (3 mL) insulin pen Inject 55 Units under the skin in the morning and 55 Units before bedtime.Active ipratropium-albuteroL (DUO-NEB) 0.5 mg-3 mg(2.5 mg base)/3 mL nebulizer as needed.Active lisinopriL (PRINIVIL,ZESTRIL) 10 mg tablet daily.Active meloxicam (MOBIC) 15 mg tablet daily.Active omeprazole (PriLOSEC) 20 mg capsule as needed.Active ondansetron (ZOFRAN) 4 mg tablet as needed.Active potassium chloride (KLOR-CON SPRINKLE) 10 MEQ CR capsule Take 1 capsule (10 mEq total) by mouth in the morning.03/16/2020Active pregabalin (LYRICA) 300 mg capsule 2 (two) times a day.Active simvastatin (ZOCOR) 10 mg tablet Take 1 tablet (10 mg total) by mouth in the morning.04/29/2020Active Active Problems ProblemNoted DateDiagnosed DateCritical limb ischemia of right lower extremity 06/19/2024 Assessment & Plan (06/19/2024 2:15 PM EST): We will get PVR and CTA with runoff Venous ulcer of right leg06/19/2024 Assessment & Plan (06/19/2024 2:16 PM EST): Continue wound care. We will get venous reflux ultrasound. Other chronic pain1ANA yzkttltt67/11/2021Preop cardiovascular exam 05/28/20202346Awqbizg77/20/2020 Assessment & Plan (06/19/2024 2:16 PM EST): Counseled on smoking cessation for at least 3 minutes. She is willing to quit. Morbid heyebzk0605/28/2020BMI 50.0-59.9, adult05/21/2020 Family History Medical HistoryRelationNameCommentsCancerPaternal GrandfatherCancerPaternal GrandmotherHeart diseasePaternal GrandmotherStrokePaternal GrandmotherRelation NameStatusCommentsFatherDeceasedMotherDeceasedPaternal GrandfatherPaternal Grandmother Social History Tobacco UseTypesPacks/DayYears UsedDateSmoking Tobacco: Every DayCigarettes Smokeless Tobacco: NeverAlcohol UseStandard Drinks/WeekCommentsYes0 (1 standard drink = 0.6 oz pure alcohol)RAREChildcareAnswerDate RecordedChildcareUnknown 12/12/2018EmploymentAnswerDate BccmcqdmAcvygslksmXjjunzb04/06/2019Purpose - Life AnswerDate RecordedPurpose and direction in nugzJgnrhpm46/06/2021 CommentsUnknownSex and Gender InformationValueDate RecordedSex Assigned at Not on fileLegal KxzMgpfoz63/06/2015 11:50 AM EDTGender IdentityNot on file Sexual OrientationNot on file Last Filed Vital Signs Vital SignReadingTime TakenCommentsBlood Xfpaency852/7006/19/2024 11:26 AM EST Rzcdl753006/19/2024 11:26 AM DHIJuzoegsbtxg42.7 ??C (98 ??F)06/19/2024 11:26 AM ESTRespiratory Imet712308/20/2023 11:26 AM ESTOxygen Cplssnttyw84%06/11/2020 9:27 AM ESTInhaled Oxygen Concentration--Yfehwf980.6 kg (374 lb)06/19/2024 11:26 AM UYBHcunax984 cm (5' 6.93 )06/19/2024 11:26 AM ESTBody Mass Index58.7108/20/2023 11:26 AM EST Plan of Treatment Health MaintenanceDue DateLast DoneCommentsStatin Use: Rcxqzricyjujny02/17/1971 Depression Rldtfjqsb61/17/1983Tobacco Gdmgagbur71/17/1983Adult BMI Follow Up Plan1988DTaP,Tdap and Td Vaccines (1 - Tdap)1989Pap Smear1991 Zoster (Shingles) Vaccine (1 of 2)1COVID-19 Vaccine (4 - 2024-26 season)5007/19/2021, 10/28/2020, 10/08/2020Influenza Zznzwdu1303/09/2025 05/18/2023, 04/16/2017, 05/10/2016, Additional history existsAdult BMI Screening Medical Devices Not on file Insurance Care Teams Team MemberRelationshipSpecialtyStart DateEnd Date Mckayla Blas, ELECTRON BEAM WELDER-ELECTRICAL EQUIPMENT TESTER [address] [place] [address] PCP - GeneralNurse Practitioner09/25/18
--- OUTSIDE RECORDS SUMMARY | 2025-05-05 11:27 | XMS_ITS | Clinical Summary ---
Author Organization [facility] Address [address] [place] [address] Care Team Providers Care Golf Ball Marker Name Role Phone Mckayla Blas MD Primary Care Provider [phone] Allergies No known active allergies Medications MedicationSigDispense QuantityRefillsLast FilledStart DateEnd DateStatus amitriptyline (Elavil) 50 mg tablet Take 1 tablet by mouth at bedtime.Active baclofen (Lioresal) 10 mg tablet Take 1 tablet by mouth at bedtime.Active Breztri Aerosphere 160-9-4.8 mcg/actuation HFA aerosol inhaler INHALE 2 PUFFS BY MOUTH IN THE MORNING AND BEFORE BEDTIME *RINSE MOUTH AFTER USE*11/02/2023ctive cetirizine (ZyrTEC) 10 mg tablet Take 10 mg by mouth if needed.11/01/2023ctive Farxiga 10 mg 10 mg in the morning.08/31/2023ctive diclofenac (Voltaren) 75 mg EC tablet Take 75 mg by mouth twice a day.02/06/2022ctive Mounjaro 10 mg/0.5 mL pen injector INJECT 10MG SUBCUTANEOUSLY ONCE A WEEK10/22/2023ctive insulin aspart (NovoLOG) 100 unit/mL (3 mL) injection pen Novolog Flexpen U-100 Insulin aspart 100 unit/mL (3 mL) subcutaneousActive insulin glargine (Lantus Solostar U-100 Insulin) 100 unit/mL (3 mL) injection pen INJECT 48 UNITS SUBCUTANEOUSLY TWICE DAILY02/06/2022ctive HYDROcodone-acetaminophen ([place]) 5-325 mg tablet TAKE 1 TABLET BY MOUTH THREE TIMES A DAY NEEDED FOR PAIN MUST LAST 30 DAYS 11/09/2023ctive DULoxetine (Cymbalta) [address] capsule Take 1 tablet by mouth in the morning.Active ergocalciferol (Vitamin D-2) 1.25 MG (67831 Units) capsule Take 1.25 mg by mouth.Active furosemide (Lasix) 40 mg tablet Take 1 tablet by mouth in the morning.Active furosemide (Lasix) 20 mg tablet if needed.09/12/2023ctive hydrALAZINE (Apresoline) 25 mg tablet Take 25 mg by mouth in the morning and at bedtime.09/27/2023ctive lisinopril 20 mg tablet Take 1 tablet by mouth in the morning.Active omeprazole (PriLOSEC) [address] capsule Take by mouth in the morning.09/21/2023ctive potassium chloride ER (Micro-K) 10 mEq ER capsule Take 1 tablet by mouth in the morning.Active pregabalin (Lyrica) 300 mg capsule Take 1 capsule by mouth in the morning and at bedtime.Active simvastatin (Zocor) 10 mg tablet Take 1 tablet by mouth in the morning.Active roflumilast (Daliresp) 250 mcg tablet TAKE 1 TABLET BY MOUTH DAILY FOR 28 DAYS11/02/2023ctive varenicline tartrate (Chantix) 1 mg tablet Take 1 mg by mouth two times daily.5Active Active Problems ProblemNoted DateDiagnosed DateCellulitis of left lower kfuvdodiw80/03/2025Fever 12/09/2024igarette nicotine dependence without vhzwkfoacsvg75/21/2025Vitamin D deficiency, ujxzmniacad91/21/2025ntibiotic-induced yeast eownqhhft54/19/2025 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 08/27/2024Long term current use of inhaled jrgbfiw4408/27/2024Vitamin deficiency 08/27/2024ad odor of urine08/08/2024hronic diastolic heart aaqsfkb7608/08/2024 Myelolipoma of adrenal gland07/14/2024ritical limb ischemia of right lower jerffnfny10/12/2024Venous ulcer of right leg06/19/2024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 2 diabetes cppoissn92/05/2024 Overview (08/08/2024): Eye exam 05/13/24 Hyperpigmentation of skin04/14/20242300Dszawaxqd64Headache Left flank painMixed incontinence urrent daieyg02 Overview (11/14/2023): Added secondary to documentation in Social History. Candidiasis of mudbdw89 Overview (11/14/2023): Last Assessment & Plan: Skin care, Non-seasonal allergic gxykzqqj61Encounter for screening mammogram for malignant neoplasm of xunnop68lass 3 severe obesity with serious comorbidity and body mass index (BMI) of 50.0 to 59.9 in adultdrenal mass 1 cm to 4 cm in /11/2024 11/14/20239644Lwjlacasmra33ervical ibqzfq68 Chronic pain of both kneesecreased functional mobility GERD (gastroesophageal reflux disease) Xtfsszltcupqhn23InsomniaKidney stone AD (peripheral artery disease)neumonia adiculopathy, lumbar ueyabu26Unilateral primary osteoarthritis, right hipVenous insufficiency Overview (11/14/2023): Last Assessment & Plan: Open wounds refer to [facility] Wound Care Vaginal yeast kpmeidqwn21nxiety and jklauyhyev43/02/2024 11/14/2023ilateral lower extremity edema Overview (11/14/2023): Last Assessment & Plan: Continue w pamela, discussed skin care regimines as well Diabetic umiweussur49Hypertension Overview (11/14/2023): Last Assessment & Plan: No changes today in meds Obstructive sleep apnea Overview (11/14/2023): Last Assessment & Plan: DME needs to send her a new mask for her machine, I have emphasized the importance of getting in touch with them so she can do this Type 2 diabetes mellitus with complication, with long-term current use of haedewo60 Overview (11/14/2023): Last Assessment & Plan: Continue with [facility] for management RAGHU retbtdew18Other chronic painMI 50.0- 59.9, adult05/21/Easy utecfikc79losed fracture of upper end of zxlgokd09/27/bdominal otdxeq40 Tqmolu99ardiomegaly Overview (11/14/2023): borderline borderline Acute respiratory distress icyanrbd14Gout Resolved Problems ProblemNoted DateDiagnosed DateResolved DatePulmonary /11/2024 Overview (11/14/2023): Last Assessment & Plan: Needs to wear her PAP I am also going to have her see [facility] Cardiology as well Encounters DateTypeDepartmentCare VpnuMxexraeaduj61/30/2025Results Follow-Up Cardiology [address] [place] [address] Karma Chatterjee CNP Complete Echo (TTE) w/wo Imaging Agent, Strain, 3D, Bubble Studyfrom Last 3 Months Family History Medical HistoryRelationNameCommentsHeart attackPaternal GrandmotherRelationName StatusCommentsFatherDeceasedMotherDeceasedPaternal Grandmother Social History Tobacco UseTypesPacks/DayYears UsedDateSmoking Tobacco: Every DayCigarettes Smokeless Tobacco: Never Tobacco Cessation:Ready to Q uit: Not Asked; Counseling Given: Not Answered Alcohol UseStandard Drinks/WeekCommentsNot Currently0 (1 standard drink = 0.6 oz pure alcohol)KS Safety & EnvironmentAnswerDate RecordedFear of Current or Ex-PartnerNot on file08/30/2023Emotionally AbusedNot on file08/30/2023hysically AbusedNot on file08/30/2023Sexually AbusedNot on file08/30/2023hysically or Sexually AbusedNot on file08/30/2023CommentsUnknownSex and Gender InformationValueDate RecordedSex Assigned at BirthNot on fileLegal SexFemale 01/04/2022 10:08 PM EDTGender IdentityNot on fileSexual OrientationNot on file Last Filed Vital Signs Vital SignReadingTime TakenCommentsBlood Vwmlrbtq490/6407/07/2024 11:41 AM EDT Koufn3564 11:41 AM XEIQvhqshxyqdd07.7 ??C (98.1 ??F)12/12/2018 2:44 PM EDTRespiratory Rate--Oxygen Vzzjvavpfu61%01/06/2025 11:41 AM EDTInhaled Oxygen Concentration--Qtpgmg343 kg (376 lb)01/06/2025 11:41 AM MGMFarraf938.2 cm (5' 7 )01/06/2025 11:41 AM EDTBody Mass Index58.8901/06/2025 11:41 AM EDT Plan of Treatment Health MaintenanceDue DateLast DoneCommentsCT Xqyoshsghoib21/17/1971Colonoscopy 1970Colorectal Cancer Rxtnntpns13/17/1971Diabetes: Hemoglobin A1C 1970FIT-DNA1970FIT1970FOBT1970Medicare Annual Wellness (AWV)1970 9361Qvspzwjuixboc31/17/1971Diabetes: Retinopathy Varxhkfkj43/17/1981 Depression Mhyiklokt67/17/1983Diabetes: Urine Protein Yhjaoifhi56/17/1990 Hepatitis B Vaccines (1 of 3 - 19+ 3-dose series)1989Pap Smear1991 Adult Bymhdvn9708/25/1992Cervical Cancer Qhjvxqjwz41/17/2001HPV/Yhxzea4208/25/2000 Nfzftuunr86/17/2011Pneumococcal Vaccine: Pediatrics (0 to 5 Years) and At-Risk Patients (6 to 64 Years) (2 of 2 - PCV)Zoster Vaccines (1 of 2)1COVID-19 Vaccine ( - season)501/05/2022, 10/28/2020, 10/08/2020Influenza Vaccine (#1)/04/2023, 04/16/2017, 05/10/2016, Additional history existsHIB VaccinesAged OutNo longer eligible based on patient's age to complete this topicHPV VaccinesAged OutNo longer eligible based on patient's age to complete this topicIPV VaccinesAged OutNo longer eligible based on patient's age to complete this topicMeningococcal B VaccineAged OutNo longer eligible based on patient's age to complete this topic Meningococcal VaccineAged OutNo longer eligible based on patient's age to complete this topicRotavirus VaccinesAged OutNo longer eligible based on patient's age to complete this topic Insurance Care Teams Team MemberRelationshipSpecialtyStart DateEnd Date cMkayla Blas MD [facility] [place] [address] PCP - GeneralNurse Practitioner11/13/23
--- OUTSIDE RECORDS SUMMARY | 2025-05-05 11:27 | XMS_ITS | Encounter Summary ---
Author Organization [facility] Address [address] [place] [address] Care Team Providers Care Drier Belt Conveyor Name Role Phone Ty Amin MD Primary Care Provider [phone] Mckayla Blas NP Unavailable [phone] Mckayla Blas NP Unavailable [phone] Encounter Details DateTypeDepartmentCare Team (Latest Contact Info)Afbkvixbghk54/04/2024Clinisync Result Encounter [facility] Unsolicited Provider, [...] relatives?Once a week08/26/2024How often do you attend sikhism or faith services?More than 4 times per year08/26/2024Do you belong to any clubs or organizations such as sikhism groups, unions, fraternal or athletic groups, or school groups?No08/26/2024How often do you attend meetings of the clubs or organizations you belong to?Never08/26/2024re you , , , , never , or living with a partner?Lovaisa8308/26/2024UDIT-C AnswerDate RecordedQ1: How often do you have [...] heating?Not hard at all08/26/2024PHQ-2AnswerDate RecordedPatient Health Questionnaire-2 Leznq173[facility] - Occupational Stress QuestionnaireAnswerDate RecordedDo you feel stress - tense, restless, nervous, or anxious, or unable to sleep at night because yourmind is troubled all the time - these days?Only a ygonis2008/26/2024 Exercise Vital SignAnswerDate RecordedOn average, how many [...] homeless or living in a fci (including now)?No08/26/2024CommentsUnknownSex and Gender InformationValueDate RecordedSex Assigned at BirthNot on fileLegal Sex Ovrqbw9609/20/2022 6:50 PM EDTGender IdentityNot on fileSexual OrientationNot on filedocumented as of this encounter Functional Status * AUDIT-C ScoreAnswerDate of EsnwpllokuEjyelf935/18/2025 6:13 PM Riley, Generic * Q1: How [...] or more drinks on one occasion?AnswerDate of KbuogwzersNctnfeFlttm04/18/2025 6:13 PM Riley, Generic * Over the past 2 weeks, how often have you been bothered by any of the following problems?QuestionAnswerDate of AssessmentAuthorLittle interest or pleasure in doing thingsNot at all01/26/2025 6:14 PM Marilyn Gibson MA Feeling down, depressed, or hopelessNot at all01/26/2025 6:14 PM Marilyn Gibson MAPatient Health Questionnaire-2 Chpxp190 6:14 PM EDT Marilyn Forman MA * [...] Plan of Treatment DateTypeDepartmentCare Team (Latest Contact Info)Xdqhqvtuezi82/20/2025 10:30 AM ESTOffice Visit [facility] [address] [place] [address] Rain Souza MD [address] [place] [address] documented as of this encounter Procedures Procedure NamePriorityDate/TimeAssociated DiagnosisCommentsMR LUMBAR SPINE WO CON05/12/2024 2:41 PM EST documented in this encounter Results * MR LUMBAR SPINE WO CON (05/12/2024 2:41 PM EST)Anatomical RegionLaterality ModalityOtherSpecimen (Source)Anatomical Location / LateralityCollection Method / VolumeCollection TimeReceived Time05/12/2024 2:41 PM EST Narrative 05/12/2024 2:43 PM EST [facility] ?[address] ? [place] [address] ? Magnetic Resonance Report ? Signed ? Patient: MACIAS,MITZI L ?MR#: [id number] ?? : 1970 ?Acct:[id number] ?? Age/Sex: 53 / F ?ADM Date: 05/12/24 ?? Loc: MRI ? Attending Dr: Celestina Chin BALL POINTS INSPECTOR ? Ordering Physician: Celestina Chin NP ?? Date of Service: 05/12/24 ?? Procedure(s): MR lumbar spine wo con ?? Accession Number(s): [id number] ? cc: Mckayla Blas NP; Celestina Chin NP ? [facility] ? [address] ? [place] [address] ? Patient Name: ?? MITZI MACIAS ? MRN: [id number] ? date: 1970 ?Sex: F ?? Assigned Patient Location: MRI ?? Current Patient Location: CT ?? Accession/Order Number: [id number] ?? Exam Date: 05/12/2024 ??09:21 ?Report Date: 05/12/2024 ??14:41 ? At the request of: ?? CELESTINA ??GIUSEPPE ? Procedure: ??MR lumbar spine wo con ? EXAMINATION: MR lumbar spine wo con ? HISTORY: Lumbar Stenosis With Neuro Claudication ? COMPARISON: No relevant comparison available. ? TECHNIQUE: A variety of imaging planes and parameters were utilized for ?? visualization of suspected pathology. ? FINDINGS: ?? For the purposes of numbering, sagittal T2 image # 8 extends from the T11 ?? vertebral body superiorly to the S3 level inferiorly. ? PARASPINAL AREA: Normal with no visible mass. ?? BONES: No acute fracture or dislocation. No bone edema. 5 mm anterolisthesis ?? of ?? L4 on L5 ?? CORD/CAUDA EQUINA: Normal caliber, contour, and signal intensity. ? DISC LEVELS: ?? 12-L1: No significant disc/facet abnormality, spinal stenosis, or foraminal ?? stenosis. ?? L1-L2: No significant disc/facet abnormality, spinal stenosis, or foraminal ?? stenosis. ?? L2-L3: No significant disc/facet abnormality, spinal stenosis, or foraminal ?? stenosis. ?? L3-L4: Moderate to severe disc space narrowing and disc desiccation with ?? endplate sclerosis. Posterior subligamentous disc herniation extending ?? posteriorly up to 3.1 mm with inferior migration 4.5 mm. Moderate to severe ?? ligamentum flavum hypertrophy and facet osteoarthropathy. Moderate narrowing ?? of ?? the central canal. Moderate to severe right and mild left foraminal stenosis ?? L4-L5: 5 mm anterolisthesis of L5 on S1 with resultant bulge/pseudobulge. ?? Moderate ligamentum flavum hypertrophy and facet osteophytes arthropathy. ?? Severe central canal stenosis. Moderate to severe right and no left foraminal ?? stenosis ?? L5-S1: Moderate to severe disc space narrowing. Large posterior disc ?? herniation ?? of the protrusion type extending up to 6.6 mm. Bilateral facet ?? osteoarthropathy. Mild narrowing of the central canal . No right and moderate ?? left foraminal stenosis ? MR/MR lumbar spine wo con ?? IMPRESSION: ? Extensive degenerative changes with disc herniations resulting in central and ?? foraminal stenosis as detailed above ? Electronically authenticated by: MARYANNE ??WEST ?? Date: 05/12/2024 ??14:41 ? Dictated By: ?Maryanne Gardner M.D. ? Signed By: ?05/12/24 1443 ? DD/ 1441 ? TD/TT: ? Scaler: Procedure Note Radiology, Radiologist, MD - 05/12/[address] [address] Magnetic Resonance Report Signed Patient: MITZI MACIAS LMR#: [id number] : 1970Acct:[id number] Age/Sex: 53 / FADM Date: 05/12/24 Loc: MRI Attending Dr: Celestina Chin NP Ordering Physician: Celestina Chin NP Date of Service: 05/12/24 Procedure(s): MR lumbar spine wo con Accession Number(s): [id number] cc: Mckayla Blas NP; Celestina Chin NP [address] [address] Patient Name: MITZI MACIAS MRN: [id number] date: 1970 Sex: F Assigned Patient Location: MRI Current Patient Location: CT Accession/Order Number: [id number] Exam Date: 05/12/2024 09:21 Report Date: 05/12/2024 [...] 14:41 Dictated By: Maryanne Gardner M.D. Signed By:05/12/241442 DD/ 40 TD/TT: Scaler: Authorizing ProviderResult TypeResult StatusGeneric External Data Provider [facility] IMAGINGFinal Result documented in this encounter Visit Diagnoses Not on filedocumented in this encounter Additional Health Concerns AssessmentNoted TimePQ-9 Depression Total Score: 307 10:08 AM EDT documented as of this encounter Care Teams Team MemberRelationshipSpecialtyStart DateEnd Date Ty Amin MD PCP - GeneralFamily Medicine09/20/23 Mckayla Blas NP [address] [place] [address] PCP - [facility]/1/ Mckayla Blas NP Nurse PractitionerFamily Medicine09/20/23documented as of this encounter
--- OUTSIDE RECORDS SUMMARY | 2025-05-05 11:41 | XMS_ITS | CCD ---
Author Organization [facility] Care Team Providers Care Test Evaluator Name Role Phone James Benavidez Primary Care Provider [phone] JAMES BENAVIDEZ Primary Care Unavailable SHENDGE, VITHAL Admitting Unavailable SHENDGE, VITHAL Attending Unavailable AICHHOLZ, MCKAYLA Primary Care Unavailable AICHHOLZ, MCKAYLA Referring Unavailable AICHHOLZ, MCKAYLA J Primary Care Physician Tico, Stephanie Unavailable OLE RAMIREZ Attending Unavailable OLE RAMIREZ Consulting Unavailable AICHHOLZ, COMPRESSOR STATION ENGINEER CHIEF MCKAYLA Primary Care Unavailable OLE RAMIREZ Admitting Unavailable ANTONY SHRESTHA Consulting Unavailable ALONDRA ., JACQUELINE Admitting Unavailable ALONDRA ., JACQUELINE Attending Unavailable AICHHOLZ, COMPRESSOR STATION ENGINEER CHIEF MCKAYLA Primary Care Unavailable AFSANEH Loera, DR BOLANOS Consulting Unavailable MARYANNE POWER Consulting Unavailable GLENN KERR Consulting Unavailable YOMAIRA KERR Consulting Unavailable HATTIE GOFF Consulting Unavailable ALONDRA ., JACQUELINE Consulting Unavailable TICO, STEPHANIE Attending Unavailable TICO, STEPHANIE Consulting Unavailable AICHHOLZ, COMPRESSOR STATION ENGINEER CHIEF MCKAYLA Primary Care Unavailable TICO, STEPHANIE Admitting Unavailable REGLA ., DR DUMONT Admitting Unavailable AICHHOLZ, COMPRESSOR STATION ENGINEER CHIEF MCKAYLA Primary Care Unavailable REGLA ., DR DUMONT Attending Unavailable ARAUZ ., DR DUMONT Consulting Unavailable COLLIN HUERTAS Consulting Unavailable CECILIA KAUFMAN Admitting Unavailable CECILIA KAUFMAN Attending Unavailable AICHHOLZ, COMPRESSOR STATION ENGINEER CHIEF MCKAYLA Primary Care Unavailable COMFORT PRETTY Attending Unavailable COMFORT PRETTY Admitting Unavailable AICHHOLZ, COMPRESSOR STATION ENGINEER CHIEF MCKAYLA Primary Care Unavailable AICHHOLZ, COMPRESSOR STATION ENGINEER CHIEF MCKAYLA Admitting Unavailable AICHHOLZ, COMPRESSOR STATION ENGINEER CHIEF MCKAYLA Primary Care Unavailable AICHHOLZ, COMPRESSOR STATION ENGINEER CHIEF MCKAYLA Attending Unavailable AICHHOLZ, COMPRESSOR STATION ENGINEER CHIEF MCKAYLA Consulting Unavailable LAKSHMIPATHY ., NARENDRANATH Attending Anette vailable LAKSHMIPATHY ., NARENDRANATH Consulting Anette vailable LAKSHMIPATHY ., NARENDRANATH Admitting Anette vailable AICHHOLZ, COMPRESSOR STATION ENGINEER CHIEF MCKAYLA Primary Care Unavailable VALENZUELA ., GIL Consulting Unavailable MORTENSEN ., DR CHAPARRO Aguillon Attending Unavailable MORTENSEN ., DR CHAPARRO Aguillon Admitting Unavailable AICHHOLZ, COMPRESSOR STATION ENGINEER CHIEF MCKAYLA Primary Care Unavailable VALENZUELA ., GIL Consulting Unavailable MORTENSEN ., DR CHAPARRO Aguillon Admitting Unavailable AICHHOLZ, COMPRESSOR STATION ENGINEER CHIEF MCKAYLA Primary Care Unavailable MORTENSEN ., DR CHAPARRO Aguillon Attending Unavailable HALKER ., SUBHASH Consulting Unavailable LAKSHMIPATHY ., NARENDRANATH Admitting Anette vailable LAKSHMIPATHY ., NARENDRANATH Attending Anette vailable AICHHOLZ, COMPRESSOR STATION ENGINEER CHIEF MCKAYLA Primary Care Unavailable MORTENSEN ., DR CHAPARRO Aguillon Attending Unavailable MORTENSEN ., DR CHAPARRO Aguillon Admitting Unavailable VALENZUELA ., GIL Consulting Unavailable AICHHOLZ, COMPRESSOR STATION ENGINEER CHIEF MCKAYLA Primary Care Unavailable VALENZUELA ., GIL Consulting Unavailable MORTENSEN ., DR CHAPARRO Aguillon Attending Unavailable MORTENSEN ., DR CHAPARRO Aguillon Admitting Unavailable AICHHOLZ, COMPRESSOR STATION ENGINEER CHIEF MCKAYLA Primary Care Unavailable HATTIE BRODERICK Attending Unavailable HATTIE BRODERICK Admitting Unavailable AICHHOLZ, COMPRESSOR STATION ENGINEER CHIEF MCKAYLA Primary Care Unavailable AICHHOLZ, COMPRESSOR STATION ENGINEER CHIEF MCKAYLA Admitting Unavailable AICHHOLZ, COMPRESSOR STATION ENGINEER CHIEF MCKAYLA Consulting Unavailable AICHHOLZ, COMPRESSOR STATION ENGINEER CHIEF MCKAYLA Primary Care Unavailable AICHHOLZ, COMPRESSOR STATION ENGINEER CHIEF MCKAYLA Attending Unavailable AICHHOLZ, COMPRESSOR STATION ENGINEER CHIEF MCKAYLA Primary Care Unavailable MISC, DR LESLIE Admitting Unavailable MISC, DR LESLIE Attending Unavailable MISC, DR LESLIE Consulting Unavailable DIAB ., MARIANO Admitting Unavailable DIAB ., MARIANO Attending Unavailable DIAB ., MARIANO Consulting Unavailable AICHHOLZ, COMPRESSOR STATION ENGINEER CHIEF MCKAYLA Primary Care Unavailable RASTEGAR, RICCO Consulting Unavailable AICHHOLZ, COMPRESSOR STATION ENGINEER CHIEF MCKAYLA Admitting Unavailable AICHHOLZ, COMPRESSOR STATION ENGINEER CHIEF MCKAYLA Primary Care Unavailable AICHHOLZ, COMPRESSOR STATION ENGINEER CHIEF MCKAYLA Attending Unavailable AICHHOLZ, COMPRESSOR STATION ENGINEER CHIEF MCKAYLA Consulting Unavailable DR PATRICIA VELOZ Consulting Unavailable TAMLYN ., CECILIA Attending Unavailable TAMLYN ., CECILIA Admitting Unavailable DR PATRICIA VELOZ Consulting Unavailable AICHHOLZ, COMPRESSOR STATION ENGINEER CHIEF MCKAYLA Primary Care Unavailable TAMLYN ., CECILIA Consulting Unavailable MORTENSEN ., DR CHAPARRO Aguillon Attending Unavailable FESTUS ., DR CHAPARRO Aguillon Consulting Unavailable FESTUS ., DR CHAPARRO Aguillon Admitting Unavailable AICHHOLZ, COMPRESSOR STATION ENGINEER CHIEF MCKAYLA Primary Care Unavailable HATTIE BRODERICK Attending Unavailable HATTIE BRODERICK Consulting Unavailable HATTIE BRODERICK Admitting Unavailable AICHHOLZ, COMPRESSOR STATION ENGINEER CHIEF MCKAYLA Primary Care Unavailable HATTIE BAUTISTA Unavailable AICHHOLZ, COMPRESSOR STATION ENGINEER CHIEF MCKAYLA Admitting Unavailable AICHHOLZ, COMPRESSOR STATION ENGINEER CHIEF MCKAYLA Attending Unavailable AICHHOLZ, COMPRESSOR STATION ENGINEER CHIEF MCKAYLA Consulting Unavailable AICHHOLZ, COMPRESSOR STATION ENGINEER CHIEF MCKAYLA Primary Care Unavailable Brennan PHIPPS, Ty Primary Care Provider Ty Amin MD Primary Care Provider Aichholz PROFILE SHAPER OPERATOR, Mckayla Unavailable Aichholz PROFILE SHAPER OPERATOR, Mckayla Unavailable AICHHOLZ, MCKAYLA Attending Unavailable LIBBY, AHMAD F Attending Unavailable AICHHOLZ, MCKAYLA Attending Unavailable AICHHOLZ, MCKAYLA Attending Unavailable AICHHOLZ, MCKAYLA Attending Unavailable LIBBY, AHMAD F Attending Unavailable AICHHOLZ, MCKAYLA Attending Unavailable LIBBY, AHMAD F Attending Unavailable LIBBY, AHMAD F Referring Unavailable AICHHOLZ, MCKAYLA Attending Unavailable Aichholz PROFILE SHAPER OPERATOR, Mckayla Unavailable Aichholz PROFILE SHAPER OPERATOR-C, Mckayla Rice Primary Care Provider [phone] Price Arora DO Attending Provider Adonay DPM, Flynn Rice Attending Provider Aichholz PROFILE SHAPER OPERATOR-C, Mckayla Rice Attending Provider [phone] AMI ORO Attending Unavailable DAKOTAH BRIDGES Attending Unavailable Elbert ARAUZ Attending Unavailable GAVIOTA ADAMES Attending Unavailable Bob MID LEVEL PROJECT MANAGER-COMPRESSOR STATION ENGINEER CHIEF, Omero Lovell Attending Unav ailable Adonay DPM, Flynn Arzate Referring Unavailab le Bob MID LEVEL PROJECT MANAGER-COMPRESSOR STATION ENGINEER CHIEF, Omero Lovell Attending Unav ailable Adonay DPM, Flynn Arzate Attending Unavailab le Bob MID LEVEL PROJECT MANAGER-COMPRESSOR STATION ENGINEER CHIEF, Omero Lovell Attending Unav ailable Aichholz MID LEVEL PROJECT MANAGER-COMPRESSOR STATION ENGINEER CHIEF, Mckayla Lennon Primary Care Unava ilable Adonay BAEZM, Flynn Arzate Attending Unavailab lolita Urias DPM, Flynn Arzate Attending Unavailab le Wan MID LEVEL PROJECT MANAGER-COMPRESSOR STATION ENGINEER CHIEF, Mckayla Lennon Primary Care Unava ilable Bob MID LEVEL PROJECT MANAGER-COMPRESSOR STATION ENGINEER CHIEF, Omero Lovell Consulting Unav ailable Wan MID LEVEL PROJECT MANAGER-COMPRESSOR STATION ENGINEER CHIEF, Mckayla Lennon Primary Care Unava ilable Valdez PHIPPS, Corinne Ghosh Attending Unavail able Brennan PHIPPS, Ty Primary Care Provider Wan PROFILE SHAPER OPERATOR, Mckayla Unavailable Wan PROFILE SHAPER OPERATOR, Mckayla Unavailable Brennan PHIPPS, Ty Primary Care Provider Allergies Allergy ClassificationReported Allergen(s)Allergy TypeDate of OnsetReaction(s) Facility (1 source)No Known Medication Allergies; Translations: [No Known Medication Allergies]Propensity to adverse reactions (disorder)[facility] Medications Current Medications MedicationDrug Class(es)DatesSig (Normalized)Sig (Original)0.5 ML tirzepatide 30 MG/ML Auto-Injector [Mounjaro] (1 source)Start: 88-87-0231zigupl 15 mg by subcutaneous injection every week Mounjaro 15 mg/0.5 mL subcutaneous solution INJECT 15MG SUBCUTANEOUSLY ONCE A WEEK Start Date: 06/11/24 Status: Orderedacetaminophen 325 mg / HYDROcodone bitartrate 5 mg oral tablet (20 sources)Opioid AgonistStart: 77-79-8853thygtpcoocwae-hydrocodone 325 mg-5 mg oral tablet Refill(s) 0 Start Date: 02/06/22 Status: OrderedStart: 12-13-2017 End: 11-13-5202flqu 1 tablet by mouth every four hoursHydrocodone-Acetaminophen ([place]) 5-325 mg tablet Discontinued 1 TAB PO Q4H 15 0 December 13, 2017 April 05, 2025 12:52pm Fracture of humerus painStart: 44-26-0008tupb 1 tablet by mouth every four to six hours as needed for painHYDROcodone-acetaminophen ([place]) 5-325 MG tablet 1 tablet 3 (three) times a day as needed for severe pain. Activetake 1 tablet by mouth twice daily as neededNorco 5-325 MG 1 tablet as needed Orally TWICE A DAY Activealbuterol 0.83 mg/ml inhalation solution (20 sources)beta2-Adrenergic AgonistStart: 64-11-6578uhyd 2.5 mg by inhalation every four to six hours as neededStart: 18-76-0937iqzbajjko 0.083% Inh Tracey 3 mL Refill(s) 0 Start Date: 02/06/22 Status: Orderedalbuterol (2.5 MG/3ML) 0.083% nebulizer solution Take 2.5 mg by nebulization every 6 (six) hours ifneeded for wheezing Activetake 2 puff(s) by inhalation every four hours for wheezing albuterol HFA 90 mcg/act inhaler Inhale 2 puffs every 4 (four) hours if needed for wheezing ActiveAlbuterol Sulfate (2.5 MG/3ML) 0.083% 3 mL as needed Inhalation every 6 hrs Activealbuterol 0.833 mg/ml / ipratropium bromide 0.167 mg/ml inhalation solution (20 sources)Anticholinergic, beta2-Adrenergic AgonistStart: 04-05-2025 ipratropium-albuterol (Duo-Neb) 0.5-2.5 mg/3 mL nebulizer solution Daily as needed Activeamitriptyline hydrochloride 25 mg oral tablet (20 sources)Tricyclic AntidepressantStart: 02-06-2022 End: 56-43-1555ikeq 1 tablet by mouth once daily at bedtimeaspirin 81 mg chewable tablet (20 sources)Platelet Aggregation Inhibitor, Nonsteroidal Anti-inflammatory Drug Start: 11-01-2023 End: 38-29-4572szyr 1 tablet by mouth once dailyaspirin 81 MG chewable tablet Chew 81 mg in the morning. 0 Activebaclofen 10 mg oral tablet (20 sources)gamma-Aminobutyric Acid-ergic AgonistStart: 90-48-2748hjph 1 tablet by mouth every eight hours as neededStart: 69-66-5365rqjq 1 tablet by mouth in the morning, then take 1 tablet by mouth in the evening, then take 1 tablet by mouth at bedtimebaclofen (Lioresal) 10 MG tablet Take 10 mg by mouth in the morning and 10 mg in the evening and 10mg before bedtime. 06/24/2024 Eljjoo57 actuat budesonide 0.16 mg/actuat / formoterol fumarate 0.0045 mg/actuat metered dose inhaler (4 sources)Corticosteroid, beta2-Adrenergic Agonisttake 2 puff(s) by inhalation in the morningbudesonide-formoterol (Symbicort) 160-4.5 MCG/ACT inhaler Inhale 2 puffs in the morning and 2 puffsbefore bedtime. Rinse mouth with water after use to reduce aftertaste and incidence of candidiasis.Do not swallow.. 0 Active take 2 puff(s) by inhalation twice dailySymbicort 160-4.5 MCG/ACT 2 puffs Inhalation Twice a day Activecetirizine hydrochloride 10 mg oral tablet (20 sources)Histamine-1 Receptor AntagonistStart: 11-01-2023 End: 40-67-2257sxgl 1 tablet by mouth once daily as neededtake 1 tablet by mouth in the morningcetirizine (ZyrTEC) 10 MG tablet Take 10 mg by mouth in the morning. 0 Activedapagliflozin 10 mg oral tablet (20 sources)Sodium-Glucose Cotransporter 2 InhibitorStart: 01-17-2024 End: 15-82-2244xqgl 1 tablet by mouth once dailyStart: 08-14-2023 End: 13-36-8625xnlo 1 tablet by mouth in the morningdapagliflozin (Farxiga) 10 MG Indications: Type 2 diabetes mellitus with unspecified complications ( CMS/HCC) Take 1 tablet (10 mg) by mouth in the morning. 90 tablet 1 08/14/2023 11/12/2023 Activediclofenac sodium 75 mg delayed release oral tablet (20 sources)Nonsteroidal Anti-inflammatory DrugStart: 96-72-9675pshw 1 tablet by mouth twice daily0.5 ML dulaglutide 9 MG/ML Auto-Injector [Trulicity] (4 sources)GLP-1 Receptor AgonistStart: 75-93-7726Hresywrgh Pen 4.5 mg/0.5 mL subcutaneous solution Refills(s) 0 Start Date: 02/06/22 Status: OrderedTrulicity 4.5 MG/0.5ML as directed Subcutaneous ONCE A WEEK Activedulaglutide (Trulicity) 4.5 MG/0.5ML solution pen-injector (2 sources)inject 4.5 mg by subcutaneous injection every weekdulaglutide (Trulicity) 4.5 MG/0.5ML solution pen-injector Inject 4.5 mg under the skin 1 (one) time per week. 0 ActiveDULoxetine 60 mg delayed release oral capsule (20 sources)Serotonin and Norepinephrine Reuptake InhibitorStart: 11-01-2023 End: 51-97-2596pygt 1 capsule by mouth twice dailyStart: 07-23-2023 End: 38-54-7397uzjb 1 capsule by mouth in the morningDULoxetine (Cymbalta) [address] capsule Indications: Anxiety and depression (CMS/HCC) Take 1 capsule(60 mg) by mouth in the morning and 1 capsule (60 mg) before bedtime. Do not crush or chew.. 60 capsule 3 07/23/2023 08/22/2023 ActiveStart: 26-02-0512EKLvdetajn 30 mg Cap-EC Refills(s) 0 Start Date: 02/06/22 Status: OrderedDULoxetine 30 mg Cap-EC (2 sources)Start: 24-40-6842GAWahlrkcb 30 mg Cap-EC Refills(s) 0 Start Date: 02/06/22 Status: Orderedergocalciferol 1.25 mg oral capsule (20 sources)Provitamin D2 CompoundStart: 59-71-5998Gygwl: 01-16-2025 End: 63-01-7518zkyt 1 capsule by mouth every weekergocalciferol (Vitamin D2) 1.25 MG (00721 UT) capsule Indications: Vitamin D deficiency, unspecified Take 1 capsule (1.25 mg) by mouth 1 (one) time per week 12 capsule 1 01/16/2025 04/10/2025 ActiveStart: 10-27-2024 End: 87-53-3499qvbx 1 capsule by mouth two times weeklyergocalciferol (Vitamin D2) 1.25 MG (97186 UT) capsule Indications: Vitamin D deficiency, unspecified Take 1 capsule (1.25 mg) by mouth 2 (two) times a week 24 capsule 1 10/27/2024 01/19/2025 ActiveStart: 04-06-2024 End: 08-32-5711bpby 1 capsule by mouth every weekergocalciferol (Vitamin D2) 1.25 MG (66447 UT) capsule Indications: Vitamin D deficiency, unspecified TAKE 1 CAPSULE BY MOUTH ONE TIME PER WEEK 12 capsule 1 04/06/2024 10/27/2024 Discontinued (Reorder)fluconazole 150 mg oral tablet (20 sources)Azole AntifungalStart: 08-27-2024 End: 19-24-8501ahefvwxsfuu (Diflucan) 150 MG tablet Indications: Antibiotic- induced yeast infection One time dose,repeat in 3 days . Do not take cholesterol pill while taking this medication. Once finished then resume 2 tablet 1 01/26/2025 ActiveStart: 08-17-2023 End: 10-20-9095gwvyrmdjhzt (Diflucan) 150 MG tablet Indications: Vaginal yeast infection Take 1 tablet (150 mg) bymouth in the morning for 2 days. One time dose, may repeat in 3 days. 2 tablet 1 08/17/2023 08/19/2023 Active End: 33-53-6934lpffebebqdu (Diflucan) 150 MG tablet Take 200 mg by mouth in the morning. 0 08/17/2023 Discontinued(Reorder)furosemide 20 mg oral tablet (20 sources)Loop DiureticStart: 09-22-2024 End: 92-78-8143vzei 1 tablet by mouth once dailyStart: 04-06-2024 End: 61-28-8511plsz 1 tablet by mouth once dailyfurosemide (Lasix) 40 MG tablet Indications: Bilateral lower extremity edema Take 1 tablet (40 mg) by mouth Daily 90 tablet 1 04/06/2024 ActiveStart: 12-13-2017 End: 45-08-9307dnim 1 tablet by mouth once daily as neededfurosemide (Lasix) 20 MG tablet Take 60 mg by mouth in the morning and 60 mg before bedtime. 40 mg in the morning and 20 mg in the afternoon. 0 Activetake 1 tablet by mouth in the morningfurosemide (Lasix) 40 MG tablet Take 40 mg by mouth in the morning. 0 ActivehydrALAZINE hydrochloride 25 mg oral tablet (20 sources)Arteriolar VasodilatorStart: 09-13-2023 End: 29-98-5713xdim 1 tablet by mouth twice dailysodium hypochlorite 2.5 mg/ml topical solution (14 sources)Start: 68-40-7711MwPkbt 0.25 % external solution APPLY TO GAUZE AND PLACE ON RIGHT LOWER LEG ULCERS, CHANGE DAILY 09/24/2024 Activeinsulin aspart protamine, human 70 unt/ml / insulin aspart, human 30 unt/ml injectable suspension (2 sources)Insulin Analoginsulin aspart protamine-insulin aspart (NovoLOG Mix 70-30) (70-30) 100 UNIT/ML injection Inject under the skin 3 (three) times a day. 8 units with breakfast, 10 units with lunch and 12 units with supper. 0 ActiveNovoLog (5 sources)Insulin AnalogStart: 91-47-7423AyhmFdg SubCutaneous, TIDAC, Refills(s) 0 Start Date: 02/06/22 Status: OrderedNovoLOG 100 UNIT/ML as directed Injection SLIDING SCALE BEFORE EACH MEAL Active3 ml insulin glargine 100 unt/ml pen injector (20 sources)Insulin AnalogStart: 42-59-3204Hihhj: 28-25-2658qupabkm glargine (Lantus SoloStar) 100 UNIT/ML pen Indications: Type 2 diabetes mellitus with hyperglycemia, with long-term current use of insulin (HCC) INJECT 58 UNITS SUBCUTANEOUSLY TWICE A DAY 105mL 2 02/16/2025 ActiveStart: 01-29-2025 End: 09-65-2327fztbmy 58 [IU] by subcutaneous injection in the morninginsulin glargine (Lantus) 100 UNIT/ML injection Indications: Type 2 diabetes mellitus with hyperglycemia, with long-term current use of insulin (HCC) Inject 58 Units under the skin in the morning and58 Units before bedtime. 104.4 mL 1 01/29/2025 07/28/2025 ActiveStart: 84-91-4923Tqrjni SoloStar 100 UNIT/ML pen 08/26/2024 ActiveStart: 10-30-2023 End: 11-51-8864Esqeti SoloStar 100 UNIT/ML pen 10/30/2023 04/14/2024 Discontinued (Therapy completed)Start: 27-31-4673Bjanut Solostar Pen 100 units/mL subcutaneous solution Refills(s) 0 Start Date: 02/06/22 Status: Ordered Start: 12-13-2017 End: 49-14-4611pdfdzm 50 [IU] by subcutaneous injection twice dailyInsulin Glargine (Lantus U-100 Insulin) 100 unit/mL Solution Discontinued 50 UNIT SUBCUT Twice daily December 13, 2017 12:00am April 05, 2025 12:53pmLantus SoloStar 100 UNIT/ML as directed Subcutaneous 58 UNITS ONCE A DAY Active3 ml insulin lispro 100 unt/ml pen injector (20 sources)Insulin AnalogStart: 10-06-2023 End: 39-60-2353NkblUZG KWIKPEN 100 UNIT/ML injection Inject under the skin 10/06/2023 04/14/2024 Discontinued (Therapy completed)Start: 97-76-2486kjobaw 1 [IU] by subcutaneous injection before mealtimeInsulin Lispro (HUMALOG KWIKPEN SC) Inject under the skin in the morning and at noon and in the evening. Inject before meals. 8-10-12 units before meals and sliding scale. Activeinject 1 [IU] by subcutaneous injection three times daily before mealtimeInsulin Lispro (HUMALOG KWIKPEN SC) Inject under the skin 3 (three) times a day before meals 8-10-12 units before meals and sliding scale Activeammonium lactate 120 mg/ml topical lotion (20 sources)Start: 51-25-9842Fhkgw: 77-26-6710srtbkvsu lactate (Lac-Hydrin) 12 % lotion 07/22/2024 ActiveStart: 11-02-4294lravfubd lactate (Lac-Hydrin) 12 % lotion APPLY TO BILATERAL FEET EVERY DAY 07/22/2024 Activelisinopril 20 mg oral tablet (20 sources)Angiotensin Converting Enzyme InhibitorStart: 02-06-2022 End: 62-96-9404okpz 1 tablet by mouth once dailymeloxicam (5 sources)Nonsteroidal Anti-inflammatory DrugStart: 25-80-3246xlwvswijm Daily, Refills(s) 0 Start Date: 02/06/22 Status: Orderedtake 1 tablet by mouth every twenty-four hoursMeloxicam 7.5 MG 1 tablet Orally Once a day ActivemetFORMIN hydrochloride 1000 mg oral tablet (1 source)Biguanidetake 1 tablet by mouth twice daily at mealtimemetFORMIN (GLUCOPHAGE) 1000 MG tablet Take 1,000 mg by mouth 2 times daily (with meals). 0 ActiveMounjaro 10 MG/0.5ML solution pen-injector (4 sources)Start: 10-22-2023 End: 66-60-7943jgwnib 10 mg by subcutaneous injection every weekMounjaro 10 MG/0.5ML solution pen-injector INJECT 10MG SUBCUTANEOUSLY ONCE A WEEK 10/22/2023 04/14/2024 Discontinued (Therapy completed)Start: 37-30-8840ceyicy 10 mg by subcutaneous injection every weekMounjaro 10 MG/0.5ML solution pen-injector INJECT 10MG SUBCUTANEOUSLY ONCE A WEEK 10/22/2023 ActiveMounjaro 15 MG/0.5ML solution auto-injector (8 sources)Start: 39-23-3547Getousht 15 MG/0.5ML solution auto-injector Inject 15 mg as directed every 7 (seven) days 02/18/2024 Activenaloxone hydrochloride 40 mg/ml nasal spray (20 sources)Opioid AntagonistStart: 72-92-8832Evwxx: 42-27-2516qjcnzasq (Narcan) 4 mg/0.1 mL nasal spray Administer 4 mg into affected nostril(s) if needed 07/04/2024 Apildv37 hr nicotine 0.875 mg/hr transdermal system (20 sources)Cholinergic Nicotinic AgonistStart: 07-14-2024 End: 12-32-4407vbtusjip (Nicoderm, Step 1) 21 MG/24HR patch Indications: Encounter for smoking cessation counseling Place 1 patch over 24 hours on the skin 1 (one) time each day at the same time May either leave patch on 24 hours, or apply in the morning and take of at bedtime, rotate sites 30 patch 1 07/14/2024 Activeomeprazole 20 mg delayed release oral capsule (20 sources)Proton Pump InhibitorStart: 12-25-2023 End: 79-89-8721nrxm 1 capsule by mouth once dailytake 1 capsule by mouth before mealtimeomeprazole (PriLOSEC) [address] capsule Take 20 mg by mouth in the morning. Take before meals. Do not crush or chew. . 0 ActiveOxygen (20 sources)oxygen (O2) gas Inhale 2 L/min continuously via nasal canula Active potassium chloride 10 meq extended release oral tablet (20 sources)Start: 45-00-0518Yvqnx: 02-06-2022 End: 53-56-6152pfwd 1 capsule by mouth once daily in the morningpotassium chloride ER (Micro-K) 10 MEQ ER capsule Indications: Bilateral lower extremity edema Take1 capsule (10 mEq) by mouth Daily Take 1 capsule (10 mEq) by mouth in the morning. 90 capsule 1 01/26/2025 04/26/2025 ActiveStart: 12-13-2017 End: 93-98-2272Jkgvesmkj Chloride (Klor-Con 10) 10 mEq Tablet Extended Release Discontinued 10 MEQ PO Twice daily December 13, 2017 12:00am April 05, 2025 12:56pmtake 1 tablet by mouth every twenty-four hoursPotassium Chloride ER 10 MEQ 1 tablet with food Orally Once a day ActivepredniSONE 10 mg oral tablet (11 sources)Start: 07-30-0251suvlldPAXQ (Deltasone) 10 MG tablet 4 TABS X3 DAYS, 3TABS X3 DAYS, 2 TABS X3 DAYS, 1 TAB X3 DAYS, 1/2 TAB X4 DAYS 12/05/2024 Active pregabalin 150 mg oral capsule (20 sources)Start: 98-00-0661zrep 1 capsule by mouth once dailyStart: 08-13-2024 take 1 capsule by mouth once dailypregabalin (Lyrica) 150 MG capsule Take 150 mg by mouth Daily 08/13/2024 ActiveStart: 54-86-5333Tdtocg Oral, Refills(s) 0 Start Date: 02/06/22 Status: OrderedStart: 12-13-2017 End: 61-51-9999naxp 1 capsule by mouth in the morningpregabalin (Lyrica) 300 MG capsule Indications: Diabetic polyneuropathy associated with type 2 diabetes mellitus (HCC) Take 1 capsule (300 mg) by mouth in the morning and 1 capsule (300 mg) before bedtime. 60 capsule 5 04/14/2024 Activeroflumilast 0.5 mg oral tablet (20 sources)Phosphodiesterase 4 InhibitorStart: 01-04-2024 End: 18-25-6577cbmw 1 tablet by mouth once dailysimvastatin 10 mg oral tablet (20 sources)HMG-CoA Reductase InhibitorStart: 12-19-2024 End: 09-85-0301atpl 1 tablet by mouth once daily at bedtimeStart: 04-06-2024 End: 13-62-2521cuzr 1 tablet by mouth at bedtimesimvastatin (Zocor) 10 MG tablet Indications: Hyperlipidemia, unspecified (CMS/HCC) Take 1 tablet (10 mg) by mouth at bedtime 90 tablet 1 08/27/2024 ActiveStart: 06-15-2023 End: 52-87-7089mdqt 1 tablet by mouth in the morningsimvastatin (Zocor) 10 MG tablet Indications: Hyperlipidemia, unspecified (CMS/HCC) Take 1 tablet (10 mg) by mouth in the morning. 90 tablet 1 06/15/2023 09/13/2023 ActiveStart: 12-13-2017 End: 58-34-3200oakh 1 tablet by mouth once daily in the eveningSimvastatin 20 mg Tablet Discontinued 20 MG PO Every evening December 13, 2017 12:00am March 1:00pmsulfamethoxazole 800 mg / trimethoprim 160 mg oral tablet (15 sources)Dihydrofolate Reductase Inhibitor Antibacterial, Sulfonamide AntimicrobialStart: 30-72-5368yvdf 1 tablet by mouth twice daily sulfamethoxazole-trimethoprim (Bactrim DS) 800-160 MG per tablet TAKE 1 TABLET BY MOUTH TWICE A DAYFOR 14 DAYS 01/14/2025 ActiveStart: 08-27-2024 End: 41-40-5332yscajgvceqdeddhq-trimethoprim (Bactrim DS) 800-160 MG per tablet 08/27/2024 10/27/2024 Discontinued(Therapy completed)Symbicort 160/4.5 inhalation aerosol with adapter (3 sources)Start: 59-57-8085Mtfnzeygo 160/4.5 inhalation aerosol with adapter Refill(s) 0 Start Date: 02/06/22 Status: Ataqzur60 actuat tiotropium 0.0025 mg/actuat inhalation spray (7 sources)AnticholinergicStart: 51-15-5071Mxlocvg Respimat 60 ACT 2.5 mcg/inh inhalation aerosol Refills(s) 0 Start Date: 02/06/22 Status: Orderedtake 2 puff(s) by inhalation in the morningtiotropium (Spiriva Respimat) 2.5 MCG/ACT inhaler Inhale 2 puffs in the morning. 0 Activetake 2 puff(s) by inhalation twice daily Spiriva Respimat 2.5 MCG/ACT 2 puffs Inhalation TWICE A DAY ActiveTirzepatide (2 sources)Start: 25-43-4501Qoqpjbzcubq (Mounjaro) 15 MG/0.5ML solution auto-injector (20 sources)Start: 01-10-2759vmgvff 15 mg by subcutaneous injection every week Tirzepatide (Mounjaro) 15 MG/0.5ML solution auto-injector Indications: Type 2 diabetes mellitus with other circulatory complications (HCC) Inject 15 mg under the skin 1 (one) time per week 6 mL 1 02/27/2025 ActiveStart: 07-72-2301wediqn 15 mg by subcutaneous injection every weekTirzepatide (Mounjaro) 15 MG/0.5ML solution auto-injector Indications: Type 2 diabetes mellitus with other circulatory complications (HCC) INJECT 15MG SUBCUTANEOUSLY ONCE A WEEK 6 mL 1 07/07/2024 ActiveStart: 67-78-2770wxddqd 15 mg by subcutaneous injection every weekTirzepatide (Mounjaro) 15 MG/0.5ML solution auto-injector Indications: Type 2 diabetes mellitus with other circulatory complications INJECT 15MG SUBCUTANEOUSLY ONCE A WEEK 6 mL 1 07/07/2024 ActiveStart: 95-73-8589luwdww 15 mg by subcutaneous injection every weekTirzepatide (Mounjaro) 15 MG/0.5ML solution auto-injector Indications: Type 2 diabetes mellitus with other circulatory complications (CMS/HCC) INJECT 15MG SUBCUTANEOUSLY ONCE A WEEK 6 mL 1 07/07/2024 Activetriamcinolone acetonide 1 mg/ml topical cream (2 sources)Corticosteroidtriamcinolone (Kenalog) 0.1 % cream Apply 1 application topically in the morning and 1 application before bedtime. 0 Activevarenicline 1 mg oral tablet (20 sources)Partial Cholinergic Nicotinic AgonistStart: 71-68-7357gxwl 1 tablet by mouth twice dailyStart: 12-19-2024 End: 18-11-4357bkqt 1 tablet by mouth in the morningvarenicline (Chantix) 1 MG tablet Indications: Tobacco user , Encounter for smoking cessation counseling TAKE 1 TABLET BY MOUTH IN THE MORNING AND 1 TABLET BEFORE BEDTIME. TAKE WITH FULL GLASS OF WATER. 60 tablet 1 03/09/2025 ActiveStart: 08-27-2024 End: 40-02-9549kryo 1 tablet by mouth in the morningvarenicline (Chantix) 1 MG tablet Indications: Tobacco user , Encounter for smoking cessation counseling Take 1 tablet (1 mg) by mouth in the morning and 1 tablet (1 mg) before bedtime. Take with full glass of water.. 60 tablet 1 08/27/2024 ActiveStart: 12-05-2023 End: 33-76-7185Isxcvsygrnj Tartrate, Starter, 0.5 MG X 11 & 1 MG X 42 tablet [facility] 07/14/2024 Discontinued (Therapy completed)Start: 54-19-0624Bgvuauygbda Tartrate, Starter, 0.5 MG X 11 & 1 MG X 42 tablet therapy pack [facility] 12/05/2023 Active Completed/Discontinued Medications MedicationDrug Class(es)DatesSig (Normalized)Sig (Original)amoxicillin 875 mg / clavulanate 125 mg oral tablet (6 sources)Penicillin-class AntibacterialStart: 12-05-2024 End: 74-77-8565wfzf 1 tablet by mouth every twelve hoursamoxicillin-clavulanate (Augmentin) 875-125 MG tablet Take 1 tablet by mouth every 12 (twelve) hours 12/05/2024 01/26/2025 Discontinued (Therapy completed)cephalexin 500 mg oral capsule (9 sources)Cephalosporin AntibacterialStart: 2024 End: 82-81-0942gznrfxzumu (Keflex) 500 MG capsule 2024 10/27/2024 Discontinued (Therapy completed)Glucose Blood (ACCU-CHEK JAQUI PLUS ) (14 sources) End: 04-78-6852Pjroxmd Blood (ACCU-CHEK JAQUI PLUS ) 4 (four) times a day. 07/14/2024 Discontinued (Therapy completed)Glucose Blood (ACCU-CHEK JAQUI PLUS ) 4 (four) times a day. ActiveGlucose Blood (ACCU-CHEK JAQUI PLUS ) 4 (four) times a day. 0 Active3 ml liraglutide 6 mg/ml pen injector (6 sources)GLP-1 Receptor Agonist End: 09-43-1429zuwrxcbezvw (Victoza) 18 MG/3ML injection Inject under the skin Daily 07/14/2024 Discontinued (Therapy completed)naproxen 500 mg oral tablet (2 sources)Nonsteroidal Anti-inflammatory DrugStart: 12-13-2017 End: 62-33-9346hurb 1 tablet by mouth twice daily at mealtimeNaproxen 500 mg tablet Discontinued 500 MG PO Twice daily 20 0 December 13, 2017 12:00am April 05, 2025 12:53pm administer with food or milknortriptyline 50 mg oral capsule (18 sources)Tricyclic AntidepressantStart: 12-13-2017 End: 80-26-8006gweb 1 capsule by mouth once daily at bedtimeNortriptyline 50 mg Capsule Discontinued 50 MG PO Daily at bedtime December 13, 2017 12:00am April 05, 2025 12:53pmubrogepant 100 mg oral tablet (12 sources) End: 16-41-8042tjlx 1 tablet by mouth every twenty-four hours as needed Ubrogepant (Ubrelvy) 100 MG tablet Take 100 mg by mouth Daily as needed 07/14/2024 Discontinued (Therapy completed) Problems Active Problems Problem ClassificationProblemDateDocumented DateEpisodic/ChronicAbdominal pain (6 sources)Left flank pain; Translations: [Lower abdominal pain, unspecified] Onset: 998849-86-2042MvbdwrjhKikxwdjs foot deformities (1 source)Other hammer toe(s) (acquired), right foot; Translations: [OTHER HAMMER TOES ACQUIRED RT FOOT]Onset: 06-98-2478SssoyndLelqfzgo foot deformities (1 source)Other hammer toe(s) (acquired), left foot; Translations: [OTHER HAMMER TOES ACQUIRED LT FOOT]Onset: 83-34-1570TvtamivLumcuar disorders (20 sources)Mixed anxiety and depressive disorder; Translations: [Anxiety disorder, unspecified]Onset: 137058-20-3562SaguqlcPdgupp (20 sources)Asthma; Translations: [Unspecified asthma, uncomplicated]Onset: 792091-50-9434ItxbrevQlcqhz of cervix (20 sources)Malignant tumor of cervix; Translations: [Malignant neoplasm of cervix uteri, unspecified]Onset: 938219-65-9561NhsnphuKufjwp of cervix (2 sources)History of malignant neoplasm of cervix; Translations: [Personal history of malignant neoplasm of cervix uteri]04-18-0774GuvsqaepAesshkd kidney disease (5 sources)Chronic kidney disease; Translations: [Chronic kidney disease, unspecified]Onset: 02-20-2022 Resolved: 14-47-6692XgsaaplNourtvo obstructive pulmonary disease and bronchiectasis (20 sources)Pulmonary emphysema; Translations: [Chronic obstructive pulmonary disease with (acute) exacerbation]Onset: 162906-50-3286TcyiydaXcrfqiq ulcer of skin (20 sources)Non-pressure chronic ulcer of other part of right lower leg limited to breakdown of skin; Translations: [Non-pressure chronic ulcer of other part of left lower leg limited to breakdown of skin]Onset: 715591-43-4430Pniktzy Congestive heart failure; nonhypertensive (20 sources)Chronic diastolic heart failure; Translations: [Chronic diastolic (congestive) heart failure]Onset: 949476-76-6564UirnzzoUkppxvpq mellitus with complications (20 sources)Disorder of kidney due to diabetes mellitus; Translations: [Type 2 diabetes mellitus with diabetic chronic kidney disease]Onset: 02-20-2022 Resolved: 77-92-8693OifdlwuKfrxoopa mellitus without complication (13 sources)Type 2 diabetes mellitus; Translations: [Type 2 diabetes mellitus without complications]Onset: 352075-28-2359MstznocAthkxshyt of lipid metabolism (20 sources)Pure hypercholesterolemia, unspecified; Translations: [Hyperlipidemia, unspecified]Onset: 996924-41-6036ElicelbIykbwmdgpr disorders (20 sources)Gastro-esophageal reflux disease without esophagitis; Translations: [Gastroesophageal reflux disease]Onset: 12-05-2022 Resolved: 420497-68-8731CgimctqTeywlggiu hypertension (20 sources)Hypertensive disorder; Translations: [Essential (primary) hypertension]Onset: 289076-37-8260UhcsaslSueiphnfcbcxz symptoms and ill- defined conditions (20 sources)Mixed incontinence; Translations: [Incontinence]Onset: 02-06-2022 ChronicGout and other crystal arthropathies (20 sources)Gout; Translations: [Gout, unspecified]Onset: ChronicHypertension with complications and secondary hypertension (5 sources)Chronic kidney disease due to hypertension; Translations: [Hypertensive chronic kidney disease withstage 1 through stage 4 chronic kidney disease, or unspecified chronic kidney disease]Onset: 02-20-2022 Resolved: 87-55-1746ZvahttdOnmm disorders (1 source)Major depressive disorder, single episode, unspecified; Translations: [ANASTACIO DEPRESS D/O SINGLE EPIS UNS]Onset: 28-10-0046IonksppPxtoeagoyzhln gastroenteritis (1 source)Noninfective gastroenteritis and colitis, unspecified; Translations: [NONINFECTIVE GE AND COLITIS UNS]Onset: 67-30-4839FxsxivbsBtmtadysuwv deficiencies (20 sources)Vitamin D deficiency; Translations: [Vitamin D deficiency, unspecified]Onset: 429554-49-1187DxuiiycNfuhfktypfqysi (20 sources)Arthritis; Translations: [Unspecified osteoarthritis, unspecified site]Onset: 298549-06-5914CefmaeeBdbwz aftercare (1 source)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; Translations: [OTH SENIOR CARE CURRENT DRUG THERAPY]Onset: 32-59-3688WoozwdfvWmmlb aftercare (1 source)termite treater helper (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; Translations: [SENIOR PHYSICAL THERAPIST CURRENT USE OF ASPIRIN]Onset: 79-87-8116QrsrurdaKevsi aftercare (6 sources)Long-term current use of insulin; Translations: [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]17-17-5486ZplvpfpuSktni and ill-defined heart disease (20 sources)Cardiomegaly; Translations: [Cardiomegaly]Onset: 10-25-2017 07-04-0757MxjkkrhKrmkz and ill-defined heart disease (1 source)Cardiomegaly; Translations: [Cardiomegaly]Onset: 81-54-2332Cmcvgan Other and unspecified benign neoplasm (1 source)Benign lipomatous tumor; Translations: [Benign lipomatous neoplasm of other sites]Onset: 13-80-8254OeqlzzmmDjqog bone disease and musculoskeletal deformities (1 source)Acquired absence of other left toe(s); Translations: [ACQUIRED ABSENCE OF OTHER LEFT TOES]Onset: 02-42-2359FkvuucopAlhbm diseases of kidney and ureters (1 source)Urinary tract obstruction; Translations: [Other obstructive and reflux uropathy]Onset: 46-52-2898OeuwughbYzwzn diseases of veins and lymphatics (1 source)Chronic venous hypertension (idiopathic) with ulcer and inflammation of bilateral lower extremity; Translations: [CHRN KEO HTN ULCR INFLAM ALEX LW EXT]Onset: 80-36-8049KavifiiFffwn diseases of veins and lymphatics (1 source)Chronic venous hypertension (idiopathic) with ulcer of left lower extremity; Translations: [CHRON VENOUS HTN W/ULCER LT LW EXT]Onset: 09-01-2022 ChronicOther diseases of veins and lymphatics (1 source)Lymphedema, not elsewhere classified; Translations: [LYMPHEDEMA NOT ELSEWHERE CLASSIFIED]Onset: 72-53-8281XdouhuhOoume diseases of veins and lymphatics (5 sources)Chronic peripheral venous hypertension with lower extremity complication; Translations: [Chronic venous hypertension (idiopathic) with ulcer of bilateral lower extremity]Onset: 417621-22-0738OhpaytlVgfde diseases of veins and lymphatics (20 sources)Chronic peripheral venous hypertension; Translations: [Chronic venous hypertension (idiopathic) with ulcer of bilateral lower extremity]Onset: 180221-36-4406EdbevjyXodft diseases of veins and lymphatics (18 sources)Stasis dermatitis and venous ulcer of right lower extremity due to chronic peripheral venous hypertension; Translations: [Chronic venous hypertension (idiopathic) with ulcer and inflammation of rightlower extremity] Onset: 946673-25-2159JsaluhxSsruf endocrine disorders (2 sources)Disorder of adrenal gland; Translations: [Other specified disorders of adrenal gland]Onset: 07-09-0885XdskfqkKpvnd endocrine disorders (20 sources)Adrenal mass; Translations: [Disorder of adrenal gland, unspecified] Onset: 034249-30-3423VewynarEuntl endocrine disorders (2 sources)Disorder of adrenal gland, unspecifiedOnset: 02-20-2022 Resolved: 41-02-7253IbezfwlWsinj endocrine disorders (5 sources)Other specified disorders of adrenal gland; Translations: [OTHER SPEC DISORDERS ADRENAL GLAND]Onset: 83-38-6098TkrqiboIqcjn gastrointestinal disorders (3 sources)Adrenal yfyh33-52-9816XkytdgdlCogvq lower respiratory disease (1 source)Hypoxemia; Translations: [HYPOXEMIA]Onset: 86-65-4605XjndhmdxYtfuh nervous system disorders (5 sources)Chronic pain syndrome; Translations: [CHRONIC PAIN SYNDROME]Onset: 79-58-9108YosfhlyHwime nervous system disorders (1 source)Other chronic pain; Translations: [OTHER CHRONIC PAIN]Onset: 70-15-3252RucsyniAailr non-traumatic joint disorders (4 sources)Pain in right hip; Translations: [PAIN IN RIGHT HIP]Onset: 04-27-2022 EpisodicOther nutritional; endocrine; and metabolic disorders (2 sources)Localized adiposity; Translations: [Localized adiposity]ChronicOther nutritional; endocrine; and metabolic disorders (20 sources)Body mass index 40+ - severely obese; Translations: [Body mass index (BMI) 50.0-59.9, adult]Onset: 617019-38-9272VbcucqaNtgwm nutritional; endocrine; and metabolic disorders (3 sources)Body mass index (BMI) 50.0-59.9, adult; Translations: [BODY MASS INDEX BMI 50.0-59.9 ADULT]Onset: 72-73-8063FmosiuxLclit nutritional; endocrine; and metabolic disorders (3 sources)Morbid (severe) obesity due to excess calories; Translations: [MORBID SEVERE OBES D/T EXCESS NHI]Onset: 65-19-6712RjvvcycBizlv nutritional; endocrine; and metabolic disorders (1 source)Obesity, unspecified; Translations: [OBESITY UNSPECIFIED]Onset: 21-42-5328ImmpulzSeffh nutritional; endocrine; and metabolic disorders (20 sources)Obesity caused by energy imbalance; Translations: [Morbid (severe) obesity due to excess calories]Onset: 560770-00-2786AltdpqtCusev screening for suspected conditions (not mental disorders or infectious disease) (1 source)Encounter for screening mammogram for malignant neoplasm of breast; Translations: [ENC SCR MAMMO MALIG NEOPLASM BREAST]Onset: 59-80-8252Eyazvkbj Other skin disorders (2 sources)Bilateral localized swelling of lower legs; Translations: [Localized swelling, mass and lump, lowerlimb, bilateral]72-93-4731FxwwkypkRuvij upper respiratory disease (20 sources)Allergic rhinitis; Translations: [Other allergic rhinitis]Onset: 035728-57-8840FvoiytvXtmraynxce and visceral atherosclerosis (20 sources)Peripheral vascular disease, unspecified; Translations: [Peripheral vascular disease, unspecified]Onset: 986269-12-8855FliyoyuJxkprddpf heart disease (20 sources)Pulmonary hypertension; Translations: [Pulmonary hypertension, unspecified]Onset: 041494-29-3401CckmlknQsegyiib codes; unclassified (3 sources)Obstructive sleep apnea (adult) (pediatric); Translations: [OBSTRUCTIVE SLEEP APNEA]Onset: 66-40-0554RycirkeWgqmtpxe codes; unclassified (20 sources)Obstructive sleep apnea syndrome; Translations: [Obstructive sleep apnea (adult) (pediatric)]Onset: 848231-42-4890OullpukTeogowxb codes; unclassified (1 source)Acquired absence of other specified parts of digestive tract; Translations: [ACQ ABSENCE OTH PART DIGESTV TRACT]Onset: 30-46-2954Stvteiik Residual codes; unclassified (1 source)Acquired absence of both cervix and uterus; Translations: [ACQUIRED ABSENCE BOTH CERVIX AND UTERUS]Onset: 19-73-4820ArosbvwaWdzqfvha codes; unclassified (1 source)Family history of malignant neoplasm of ovary; Translations: [FAM HX MALIGNANT NEOPLASM OVARY]Onset: 10-02-9752WyrrwevbEwxtbohh codes; unclassified (1 source)Family history of malignant neoplasm, unspecified; Translations: [FAM HX MALIGNANT NEOPLASM UNS]Onset: 49-59-8810TshqqzddXwasltxar-related disorders (20 sources)Nicotine dependence; Translations: [Nicotine dependence, unspecified, uncomplicated]Onset: 74-07-6626DgmfugsZlemnkw on above:Added secondary to documentation in Social History.Unclassified (1 source)SENIOR PHYSICAL THERAPIST INJECT NONINSULN ANTIDIAB; Translations: [SENIOR PHYSICAL THERAPIST INJECT NONINSULN ANTIDIAB]Onset: 06-12-6337Dfylbdgqaple (3 sources)CONTACT W/AND (SUSP) EXPOS COVID-19; Translations: [CONTACT W/AND (SUSP) EXPOS COVID-19]Onset: 10-05-4343Dezysintmbsn (3 sources)LOW BACK PAIN, UNSPECIFIED; Translations: [LOW BACK PAIN, UNSPECIFIED]Onset: 41-26-7996Veshvcmpvdlm (1 source)Obesity, class 3; Translations: [Obesity, class 3]Onset: 11-14-2023 Viral infection (1 source)COVID-19; Translations: [COVID-19]Onset: 09-29-2022 Past or Other Problems Problem ClassificationProblemDateDocumented DateEpisodic/ChronicAcquired foot deformities (1 source)Other deformities of toe(s) (acquired), left foot; Translations: [OTHER DEFORMITIES TOES ACQ LT FOOT]Onset: 37-93-2469Nllbswux Administrative/social admission (20 sources)Patient encounter status; Translations: [Dietary counseling and surveillance]Onset: 643993-40-9922RmkodofuVgxczcoh of urinary tract (20 sources)Kidney stone; Translations: [Calculus of kidney]Onset: 02-06-2022 EpisodicE Codes: Natural/environment (1 source)Other and unspecified overexertion or strenuous movements or postures, initial encounter; Translations: [OTH AND UNS OVREXRT/STRN MVMT/POS INT]Onset: 18-69-5452IqfxxwhhNijhv of unknown origin (18 sources)Fever; Translations: [Fever, unspecified]Onset: 714042-78-5994 EpisodicGenitourinary symptoms and ill-defined conditions (20 sources)Proteinuria; Translations: [Proteinuria, unspecified]Onset: 02-06-2022 Resolved: 59-17-6865EdxgtbcwQgmclfex; including migraine (20 sources)Headache; Translations: [Headache disorder]Onset: 01-17-2024 11-44-7098RiyjsejaVqrjhqsclowcl and screening for infectious disease (20 sources)Encounter for screening for other infectious and parasitic diseases; Translations: [Anti-nuclear factor positive]Onset: 255187-32-8739Aoqgghrm Mood disorders (20 sources)Mood disorders; Translations: [DEPRESSION UNSPECIFIED]Onset: 097116-84-7222Qddezng (20 sources)Tinea unguium; Translations: [Candidiasis of vagina]Onset: 31-08-2717KbqajimyGyuxufritvt deficiencies (20 sources)Vitamin deficiency; Translations: [Vitamin deficiency, unspecified] Onset: 718292-58-9260CiwtkkneMwdpv aftercare (3 sources)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; Translations: [SENIOR CARE CURRENT USE OF INSULIN]Onset: 25-97-0618JshhahwmMuphw aftercare (20 sources)Long-term current use of inhaled steroid; Translations: [detention (current) use of inhaled steroids]Onset: 190763-36-3243JgvnkpdrSkeex and unspecified benign neoplasm (20 sources)Myelolipoma of adrenal gland; Translations: [Benign lipomatous neoplasm of other sites]Onset: 475602-95-1885DfokkmalSttac connective tissue disease (4 sources)Other muscle spasm; Translations: [OTHER MUSCLE SPASM]Onset: 34-57-8603YlbtospfAqvyv diseases of veins and lymphatics (20 sources)Vascular insufficiency; Translations: [Venous insufficiency (chronic) (peripheral)]Onset: 816405-38-5982FfoalxgyQuomc diseases of veins and lymphatics (2 sources)Venous insufficiency (chronic) (peripheral); Translations: [Venous insufficiency (chronic) (peripheral)]Onset: 12-80-2726QkzqohbzUzzlp hematologic conditions (1 source)Secondary polycythemiaOnset: 03-08-2022 Resolved: 32-38-0329UalzibqaFtkcy nervous system disorders (20 sources)Reduced mobility; Translations: [Other abnormalities of gait and mobility]Onset: 392976-99-0912JqbkazqwThhko non-traumatic joint disorders (1 source)Effusion, left knee; Translations: [EFFUSION LEFT KNEE]Onset: 36-05-7395UdsmgnupSobdi non-traumatic joint disorders (1 source)Pain in left knee; Translations: [PAIN IN LEFT KNEE]Onset: 07-26-2022 EpisodicOther non-traumatic joint disorders (20 sources)Pain in right knee; Translations: [Pain in joint, lower leg]Onset: 342402-11-7855CfurujuxQundd nutritional; endocrine; and metabolic disorders (20 sources)Severe obesity; Translations: [Morbid (severe) obesity due to excess calories]Onset: 07-10-2023 Resolved: 234459-48-6213DbywrteKwnpm nutritional; endocrine; and metabolic disorders (20 sources)Excess panniculus of abdomen; Translations: [Localized adiposity] Onset: 10-25-2017 Resolved: 259349-29-7494LjhqgssTvulo skin disorders (1 source)Nail dystrophy; Translations: [NAIL DYSTROPHY]Onset: 09-01-2022 EpisodicOther skin disorders (1 source)Corns and callosities; Translations: [CORNS AND CALLOSITIES]Onset: 12-71-7848QbdevfeuEupfv skin disorders (1 source)Xerosis cutis; Translations: [XEROSIS CUTIS]Onset: 64-96-6321Nvdwgykf Other skin disorders (20 sources)Hyperpigmentation of skin; Translations: [Disorder of pigmentation, unspecified]Onset: 485699-50-8792UxujodqzFmpovk media and related conditions (20 sources)Acute suppurative otitis media without spontaneous rupture of ear drum; Translations: [Acute suppurative otitis media without spontaneous rupture of ear drum, left ear]Onset: 01-17-2024 Resolved: 404193-35-7977IzrrcegxFjzvwdoipy disorders (not diabetes) (20 sources)Acute pancreatitis without necrosis or infection, unspecified; Translations: [Pancreatitis]Onset: 799785-73-6253ArzvdsybUyzvgwokz (except that caused by tuberculosis or sexually transmitted disease) (20 sources)Pneumonia; Translations: [Pneumonia, unspecified organism]Onset: 09-17-2023 Resolved: 303713-67-9473TnescmziFpmwgkxm codes; unclassified (3 sources)Localized edema; Translations: [LOCALIZED EDEMA]Onset: 09-01-2022 EpisodicResidual codes; unclassified (20 sources)Edema; Translations: [Edema, unspecified]Onset: 07-10-2023 Resolved: 072893-47-2697KzprxqsdVwcdqkyg codes; unclassified (20 sources)Bilateral lower limb edema; Translations: [Localized edema]Onset: 157579-09-3810SjxuvniyCooqukmi codes; unclassified (20 sources)Insomnia; Translations: [Insomnia, unspecified]Onset: 09-17-2023 25-87-8596JjlpwyjmHshssmkc codes; unclassified (20 sources)Tobacco user; Translations: [Tobacco use]Onset: 09-17-2023 Resolved: 079036-91-8221IyszcaryRbzethne codes; unclassified (20 sources)Edema of lower extremity; Translations: [Localized edema]Onset: 09-17-2023 Resolved: 456751-17-8470TciiosigVohu and subcutaneous tissue infections (20 sources)Cellulitis of right lower limb; Translations: [Cutaneous abscess of left axilla]Onset: 80-42-3165CaydjkdkOrwphkmywaq; intervertebral disc disorders; other back problems (20 sources)Lumbar radiculopathy; Translations: [Radiculopathy, lumbar region] Onset: 310729-01-9089NoymmdbiWpzwncd and strains (1 source)Strain of muscle, fascia and tendon of lower back, initial encounter; Translations: [STRAIN MUSC FASC TENDON LW BACK INT]Onset: 62-01-1075Meeocijn Unclassified (1 source)CONTACT W/AND (SUSP) EXPOS COVID-19; Translations: [CONTACT W/AND (SUSP) EXPOS COVID-19]Onset: 32-34-5868Miukebxgmbst (1 source)LOW BACK PAIN, UNSPECIFIED; Translations: [LOW BACK PAIN, UNSPECIFIED] Onset: 83-56-4123Payuhmgxjicp (4 sources)Patient encounter uqxvdr49-50-2304Skpnmtzlgmyi (1 source)Obesity, class 3; Translations: [Obesity, class 3]Onset: 08-08-2024 Varicose veins of lower extremity (20 sources)Varicose veins of right lower extremity with ulcer of unspecified site; Translations: [Varicose veins of lower extremities with ulcer]Onset: 06-19-2024 Resolved: 725422-61-2108Frowdjjz Results Test NameValueInterpretationReference RangeFacilityReminderson 04-28-2025 RemindersReminders From: Maria Elena Negrete To: [place] - Recalls Arauz; Sent: 06/11/2024 10:52:47 EST Show up: 06/11/2024 [...] ) Other: PROVIDER RELATED REMINDER:_ ( ) Customer Assistant ( ) Call Pharmacy ( ) Call Lab ( ) Other: Special Instructions:_ Comments:_ From: Raquel Tidwell ([place] - Recalls Arauz) To: [place] - Recalls Regla; Sent: 06/12/2024 15:41:24 EST Show up: 04/08/2025 15:41:00 EDT Subject: RE: Sched [address] Tried to reach Pt to schedule f/u and CT. Voicemail box was full and I was unable to leave a message at this time.[facility]/Cl[facility] Noteon [id number] Office/Clinic NoteChief Complaint Leg ulcer History of Present Illness Mitzi was referred by her geoscience laboratory technician for evaluation of PVD. She has had ulcers in the bilateral lower extremities above the ankle for about a year. She has been seen by wound care in [facility]. They are applying compression with medicated wraps. [...] shows moderate arterial sufficiency in the bilateral extremities.However, the ulcerations are venous stasis ulcers and [...] signed by Corinne Kellogg MD 04/23/25 11:56 [facility] Ankle Brachial Indiceson 59-92-3548DX Ankle Brachial IndicesPreliminary Technologist Report Ankle/brachial index study was performed. Please see below for information. Health Program Director: Zayra Ag, RVS Radiologist Report BILATERAL LOWER EXTREMITY ISABELLE STUDY CLINICAL INFORMATION: Peripheral vascular disease . Claudication and rest pain. COMPARISON: None. Bilateral brachial pressures, 176 mmHg left and 169 mmHg right, were performed along with segmentalpressures of both lower legs at the ankles. [...] please contact our Vascular Rehabilitation Department at [phone]. Final Signed by: Jose F Casanova MD Signed (Electronic Signature): 04.17.2025 3:28 pm Transcribed by: Jose F Casanova MD Transcribed DT/TM: 04.17.2025 3:12 (If Report is Signed, Electronically Signed in Other Vendor System)Normal [facility] Medical CenterBasophils Auto (Bld) [#/Vol]Ordered By: Flynn Urias on 74-17-3825Ztzvonyrc (Bld) [#/Vol]0.1 10 3/uL0.0-0.1FGreen Cross HospitalBasophils/100 WBC Auto (Bld)Ordered By: Flynn Urias on 89-29-3867Zsvdwsxlv/100 WBC (Bld)0.6 %0.2-2.0[facility] Eosinophils/100 WBC Auto (Bld)Ordered By: Flynn Urias on 03-26-2025 Eosinophils/100 WBC (Bld)2.7 %0.9-7.0[facility] Erythrocyte distribution width Auto (RBC) [Ratio]Ordered By: Flynn Urias on 37-35-0405Joahljpopgi distribution width (RBC) [Ratio]16.4 %High11.0-15.0 [facility] HospitalGlomerular filtration rate (GFR) estimation in non- AmericanOrdered By: Flynn Urias on 10-11-1114XHL/1.73 sq M.predicted among non-blacks MDRD (S/P/Bld) [Vol rate/Area]mL/min/{1.73_m2}>=60 mL/min/1.73m 2FGreen Cross HospitalHematocrit Auto (Bld) [Volume fraction]Ordered By: Flynn Urias on 85-29-8300Vpzwvckkmn (Bld) [Volume fraction]52.5 %High36.0-48.0[facility] HospitalHemoglobin [Mass/volume] in BloodOrdered By: Flynn Urias on 16-77-6238Kowlvonshc (Bld) [Mass/Vol]16.1 g/gJJehg13.0-16.0[facility] HospitalLaboratory - Chemistry and Chemistry - challengeOrdered By: Flynn Urias on 03-26-2025 Albumin [Mass/Vol]2.8 g/dLLow3.4-5.0[facility] HospitalCalcium [Mass/Vol]8.6 mg/dL8.5-10.1FGreen Cross HospitalChloride [Moles/Vol] 105 mmol/W00-650PnqfsybvaAultman HospitalCO2 [Moles/Vol]31.5 mmol/L 21.0-32.0[facility] HospitalCreatinine [Mass/Vol]0.69 mg/dL 0.55-1.02[facility] HospitalGFR/1.73 sq M.predicted MDRD (S/P/Bld) [Vol rate/Area]mL/min/{1.73_m2}>=60 mL/min/1.73m 2FGreen Cross HospitalGlucose [Mass/Vol]147 mg/jRAhtb98-392NwcshjovyAultman Hospital Potassium [Moles/Vol]4.2 mmol/L3.5-5.1FLouis Stokes Cleveland VA Medical Centerodium [Moles/Vol]141 mmol/J273-590OxjpvmftkAultman HospitalUrea nitrogen [Mass/Vol]15.0 mg/dL7.0-18.0[facility] HospitalUrea nitrogen/Creatinine [Mass ratio]21.7 mg/mgAultman Hospital Laboratory - Hematology and Cell countsOrdered By: Flynn Urias on 03-26-2025 ESR (Bld) [Velocity]48 mm/hHigh<=30[facility] HospitalImmature granulocytes/100 WBC (Bld)0.3 %0.0-0.5FGreen Cross Hospital Leukocytes [#/volume] corrected for nucleated erythrocytes in Blood by Automated counOrdered By: Flynn Urias on 39-61-0651JYP corrected for nucl RBC Auto (Bld) [#/Vol]10.0 10 3/uL4.0-11.0[facility] HospitalLymphocytes Auto (Bld) [#/Vol]Ordered By: Flynn Urias on 61-81-1806Ezjrjozzpbu (Bld) [#/Vol]2.7 10 3/uL1.2-3.8[facility] HospitalLymphocytes/100 WBC Auto (Bld)Ordered By: Flynn Urias on 20-53-5857Mlaoflfavjc/100 WBC (Bld)27.2 % 20.5-60.0[facility] HospitalMCH Auto (RBC) [Entitic mass]Ordered By: Flynn Urias on 19-97-3738DAI (RBC) [Entitic mass]27.2 pg26.7-34.0[facility] HospitalMCHC Auto (RBC) [Mass/Vol]Ordered By: Flynn Urias on 51-72-7905FSJT (RBC) [Mass/Vol]30.7 g/dL29.9-35.2FGreen Cross HospitalMCV Auto (RBC) [Entitic vol]Ordered By: Flynn Urias on 97-89-8082IGI (RBC) [Entitic vol]88.7 fL81.0-99.0[facility] HospitalMonocytes Auto (Bld) [#/Vol]Ordered By: Flynn Urias on 91-55-0202Kevirovug (Bld) [#/Vol] 0.5 10 3/uL0.3-0.8[facility] HospitalMonocytes/100 WBC Auto (Bld) Ordered By: Flynn Urias on 88-92-9533Ongmrotqb/100 WBC (Bld)5.2 %1.7-12.0 [facility] HospitalNeutrophils Auto (Bld) [#/Vol]Ordered By: Flynn Urias on 54-90-1271Pajwjhlrjij (Bld) [#/Vol]6.4 10 3/uL1.4-6.5FGreen Cross HospitalNeutrophils/100 WBC Auto (Bld)Ordered By: Flynn Urias on 91-04-0863Gleeydyhvox/100 WBC (Bld)64.0 %43.0-75.0[facility] HospitalNo Panel InformationOrdered By: Flynn Urias on 45-20-7876S-Reactive Protein, Quantitative3.94 mg/dLHigh<=0.50[facility] Eosinophils # (Auto)0.3 10 3/uL0.0-0.7FGreen Cross HospitalImmature Granulocyte # (Auto)0.03 10 3/uL0.00-0.03[facility] Phosphorus Level3.5 mg/dL2.6-4.7FGreen Cross HospitalPlatelet mean volume Auto (Bld) [Entitic vol]Ordered By: Flynn Urias on 74-07-1097Qccvvrtx mean volume (Bld) [Entitic vol]12.8 fL9.5-13.5FGreen Cross Hospital Platelets Auto (Bld) [#/Vol]Ordered By: Flynn Urias on 79-43-2551Lsyqzbkrg (Bld) [#/Vol]146 10 3/eUFwk749-326ZusvohnfoAultman HospitalRBC Auto (Bld) [#/Vol]Ordered By: Flynn Urias on 40-11-6835OYB (Bld) [#/Vol]5.92 10 6/uLHigh4.20-5.40Parkview Healtherum or plasma anion gap determinationOrdered By: Flynn Urias on 66-78-2469Qbict gap [Moles/Vol]8.7 mmol/LFGreen Cross HospitalBasophils Auto (Bld) [#/Vol]Ordered By: Price Arora on 41-25-3441Prepbmxqt (Bld) [#/Vol]0.1 10 3/uL0.0-0.1FGreen Cross HospitalBasophils/100 WBC Auto (Bld)Ordered By: Price Arora on 35-91-2588Ivsdjqwww/100 WBC (Bld)0.4 %0.2-2.0[facility] Eosinophils/100 WBC Auto (Bld)Ordered By: Price Arora on 03-25-2025 Eosinophils/100 WBC (Bld)2.4 %0.9-7.0[facility] Erythrocyte distribution width Auto (RBC) [Ratio]Ordered By: Price Arora on 53-38-7523Dgeqgdnasdu distribution width (RBC) [Ratio]16.4 %High11.0-15.0 [facility] HospitalGlomerular filtration rate (GFR) estimation in non- AmericanOrdered By: Price Arora on 65-69-2565SFR/1.73 sq M.predicted among non-blacks MDRD (S/P/Bld) [Vol rate/Area]mL/min/{1.73_m2}>=60 mL/min/1.73m 2FGreen Cross HospitalHematocrit Auto (Bld) [Volume fraction]Ordered By: Price Arora on 82-97-4224Vlzyzjyzut (Bld) [Volume fraction]56.6 %High36.0-48.0[facility] HospitalHemoglobin [Mass/volume] in BloodOrdered By: Price Arora on 00-74-3467Elyvkcwiky (Bld) [Mass/Vol]17.4 g/tIEtcy94.0-16.0[facility] HospitalLaboratory - Chemistry and Chemistry - challengeOrdered By: Price Arora on 03-25-2025 Bilirubin Ql (U)NegativeNEGATIVEAultman HospitalGlucose (U) [Mass/Vol]NegativeNEGATIVEAultman HospitalKetones Ql (U) NegativeNEGATIVEAultman HospitalpH (U)8.0 [pH]5.0-9.0Parkview Healthpecific gravity (U) [Rel density]1.0201.005-1.025 [facility] HospitalUrobilinogen Qn (U)1.0 {Little'U}/dL0.2-1.0 [facility] HospitalCalcium [Mass/Vol]9.2 mg/dL8.5-10.1FGreen Cross HospitalChloride [Moles/Vol]106 mmol/L80-208ToyaobjokAultman HospitalCO2 [Moles/Vol]36.9 mmol/LHigh21.0-32.0[facility] HospitalCreatinine [Mass/Vol]0.86 mg/dL0.55-1.02[facility] GFR/1.73 sq M.predicted MDRD (S/P/Bld) [Vol rate/Area]mL/min/{1.73_m2}>=60 mL/min/1.73m 2FGreen Cross HospitalGlucose [Mass/Vol]164 mg/dLHigh 74-106[facility] HospitalPotassium [Moles/Vol]4.0 mmol/L3.5-5.1 Parkview Healthodium [Moles/Vol]144 mmol/T652-608YatuunkorAultman HospitalUrea nitrogen [Mass/Vol]14.0 mg/dL7.0-18.0[facility] HospitalUrea nitrogen/Creatinine [Mass ratio]16.3 mg/mgAultman HospitalLaboratory - Hematology and Cell countsOrdered By: Price Arora on 81-78-4599Flaaodxl granulocytes/100 WBC (Bld)0.3 %0.0-0.5 [facility] HospitalLaboratory - Specimen informationOrdered By: Price Arora on 33-89-6724Nloryrygtn (U)CLEARCLEARFGreen Cross HospitalColor (U)LT. YELLOWYELLOWAultman HospitalLaboratory - UrinalysisOrdered By: Price Arora on 55-32-8408Yjzmxso casts LM Ql (Urine sed) RAREAultman HospitalLeukocyte esterase Test strip Ql (U) NegativeNEGATIVEAultman HospitalMucus Ql (Urine sed)TRACE AbnormalNONE SEENAultman HospitalNitrite Ql (U)NegativeNEGATIVE [facility] HospitalProtein Ql (U)100 mg/dLAbnormalNEG/TRACE [facility] HospitalLeukocytes [#/volume] corrected for nucleated erythrocytes in Blood by Automated counOrdered By: Price Arora on 03-25-2025 WBC corrected for nucl RBC Auto (Bld) [#/Vol]11.8 10 3/uLHigh4.0-11.0[facility] HospitalLymphocytes Auto (Bld) [#/Vol]Ordered By: Price Arora on 22-20-4189Cmqrjnxluhi (Bld) [#/Vol]3.1 10 3/uL1.2-3.8[facility] HospitalLymphocytes/100 WBC Auto (Bld)Ordered By: Price Arora on 55-86-5555Ltsswyhotxe/100 WBC (Bld)26.4 %20.5-60.0[facility] Auto (RBC) [Entitic mass]Ordered By: Price Arora on 21-95-6488SMP (RBC) [Entitic mass]27.5 pg26.7-34.0[facility] HospitalHC Auto (RBC) [Mass/Vol]Ordered By: Price Arora on 12-07-5944RGGS (RBC) [Mass/Vol]30.7 g/dL29.9-35.2[facility] CenterMCV Auto (RBC) [Entitic vol] Ordered By: Price Arora on 25-72-6952KYZ (RBC) [Entitic vol]89.4 fL81.0-99.0 [facility] HospitalMonocytes Auto (Bld) [#/Vol]Ordered By: Price Arora on 91-63-0000Zqhwqmpjj (Bld) [#/Vol]0.6 10 3/uL0.3-0.8[facility] HospitalMonocytes/100 WBC Auto (Bld)Ordered By: Price Arora on 69-06-2121Otiqblbzr/100 WBC (Bld)5.2 %1.7-12.0[facility] Neutrophils Auto (Bld) [#/Vol]Ordered By: Price Arora on 89-86-6132Afslbutntty (Bld) [#/Vol]7.7 10 3/uLHigh1.4-6.5FGreen Cross Hospital Neutrophils/100 WBC Auto (Bld)Ordered By: Price Arora on 03-25-2025 Neutrophils/100 WBC (Bld)65.3 %43.0-75.0[facility] HospitalNo Panel InformationOrdered By: Price Arora on 38-29-6209Ozhwg BacteriaTRACE #/HPFAbnormalNONE [facility] HospitalUrine Culture ReflexedNO [facility] HospitalUrine Occult BloodNegativeNEGATIVEAultman HospitalUrine Other CastsSEEN #/LPFAbnormalNONE [facility] HospitalUrine Other CrystalsNone Seen #/HPFNone [facility]ome[facility] HospitalUrine RBC0-2 #/HPF0-2FGreen Cross Hospital Urine Squamous Epithelial CellsFEW #/LPFAbnormalNONE/RAREAultman HospitalUrine WBC0-2 #/HPFAbnormalNONE [facility] HospitalEosinophils # (Auto)0.3 10 3/uL0.0-0.7FGreen Cross Hospital Immature Granulocyte # (Auto)0.04 10 3/uLHigh0.00-0.03[facility] HospitalPlatelet mean volume Auto (Bld) [Entitic vol]Ordered By: Price Arora on 58-45-8372Plypjwqt mean volume (Bld) [Entitic vol]12.4 fL9.5-13.5FGreen Cross HospitalPlatelets Auto (Bld) [#/Vol]Ordered By: Price Arora on 18-09-2564Ovfghiabm (Bld) [#/Vol]160 10 3/rJ164-792KmltdjlcaAultman HospitalRBC Auto (Bld) [#/Vol]Ordered By: Price Arora on 17-72-1541AHX (Bld) [#/Vol]6.33 10 6/uLHigh4.20-5.40Parkview Healtherum or plasma anion gap determinationOrdered By: Price Arora on 19-74-1308Mrchn gap [Moles/Vol]5.1 mmol/LFGreen Cross HospitalVascular Office/Clinic Noteon 07-32-7480Yhfwdabf Office/Clinic NoteChief Complaint lle wound History of Present Illness [...] care 3 times a week in the pastfor venous stasis ulcers. She has had testing done at the [facility] last year which she brought [...] of the lower EXTR, has previously been treatedwith wound care solutions. Most recent wounds lateral [...] Electronically signed by Omero Santana 03/23/25 12:01 [facility] HospitalPodiatry Office/Clinic Noteon 23-56-5417Zfghzxxg Office/Clinic NoteThe content of this note was generated by an artificial intelligence (AI) language dictation. The patient or guardian has given their consent for the use of AI technology during the visit to capture and process the conversation. The AI will assist in providing information and support throughout thediscussion. The AI will not store personal or [...] assist in providing information and support throughout thediscussion. The AI will not store personal or [...] previous ulcers, including one on her toe thatresolved without surgery, but states this is the first ulcer on this side of her leg. She reports not currently smoking. She attends wound care three times weekly (Sunday, Sunday, Sunday). Treatments have included various wraps (gauze, tila bandage, Coban II, tuba chemical dependency professional), Dakins solution, a 40-daycourse of antibiotics, and silver or copper-based dressings. [...] other blood thinners. The patient resides in [place]. Review of Systems Constitutional: Negative for signs [...] their lower extremities Positi (more content not included)...NormalMetrohealth Cleveland Heights Medical CenterComment on above:Order Comment: Missing Attachment [id number] Can be viewed in source systemXR Tibia/Fibula Righton 37-14-1027BF Tibia/Fibula Right2 views right tib- fib demonstrate: Ankle mortise is well aligned and [...] Is Signed, Electronically Signed in Other Vendor System)Normal [facility] CenterResults Follow-Upon 91-06-5403Xwvjpvi Follow-Up [id number] Mitzi Macias 1970 F Date Provider Department Center 02/04/2025 166-AMI ORO CARDIOLOGY None Family History Problem Relation Age of Onset Heart attack Paternal Grandmother Family Status - Relation Status Age at Mother Father Paternal GrandmotherNTriHealthOrders Onlyon 38-37-9710Tisbpa [id number] Mitzi Macias 1970 F Date Provider Department Center 01/30/2025 [id number], [facility] Family History Problem Relation Age of Onset Heart attack Paternal Grandmother Family Status - Relation Status Age at Mother Father Paternal GrandmoMercy Health Kings Mills HospitalCA ECHO DOPPLER COMPLETEon 72-29-0796[place]tl[place] [address] Cardiology Report Signed Patient: MITZI MACIAS MR#: [id number] : 1970 Acct:[id number] Age/Sex: 54 / F ADM Date: 01/29/25 Loc: CARD Attending Dr: AMI ORO APRN Ordering Physician: AMI ORO APRN Date of Service: 01/29/25 Procedure(s): CA echo doppler complete Accession Number(s): [id number] cc: Mckayla Blas PROFILE SHAPER OPERATOR; AMI ORO APRN Patient Name: MITZI MACIAS MR#: [id number] : 1970 Exam Date: 01/29/2025 Ordering Doctor: AMI ORO COMPRESSOR STATION ENGINEER CHIEF ECHOCARDIOGRAM REPORT PROCEDURE: CA ECHO DOPPLER COMPLETE [...] HERRERA Signed By: 01/29/251839 DD/ 39 TD/TT: Set Making 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:SONNYHRadiology, Radiologist, - 01/29/2025 [place] [address] Cardiology Report Signed Patient: MITZI MACIAS MR#: [id number] : 1970 Acct:[id number] Age/Sex: 54 / F ADM Date: 01/29/25 Loc: CARD Attending Dr: AMI ORO APRN Ordering Physician: AMI ORO APRN Date of Service: 01/29/25 Procedure(s): CA echo doppler complete Accession Number(s): [id number] cc: Mckayla Blas PROFILE SHAPER OPERATOR; AMI ORO APRN Patient Name: MITZI MACIAS MR#: [id number] : 1970 Exam Date: 01/29/2025 Ordering Doctor: [...] HERRERA Signed By: 01/29/251839 DD/ 39 TD/TT: Set Making 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: CARLOS HealthcareRadiology Study observation (narrative)[facility] ECHO DOPPLER COMPLETEOrdered By: Radiologist Radiology on 31-24-6035EGQS Healthcare Work Phone: Glucose (Bld) [Mass/Vol]on 04-54-8183Jralzjn Blood, HYW913 mg/dLNODE HealthcareLaboratory - Hematology and Cell countson 01-29-2025 HbA1c (Bld) [Mass fraction]8.4 %NOMS HealthcareNo Panel Informationon 01-29-2025 Interpretation and review of laboratory resultsAbnormalNOMS HealthcareNOMS HealthcareOffice Visiton 84-23-3090Zlqocu-up [id number] Mitzi Macias 1970 F Date Provider Department Center 01/06/2025 AMI SARABIA CARD [place] [facility] Family History Problem Relation Age of Onset Heart attack Paternal Grandmother Family Status - Relation Status Age at Mother Father Paternal Grandmother Level of Service:18260 [place] OFFICE/OUTPATIENT ESTABLISHED MOD MDM 30 MIN Reason for Visit and Comments: Congestive Heart Failure [127] Hypertension [402466] Hyperlipidemia [182]NormalMemorial Hospital36on Regarding lab results from 10/08/2024: MD Mickie Merritt MA Lipids, ALT AST, and BMP are normal. HbA1c was not performed. Continue current management. LM on patient's VM.NormalMemorial HospitalGlucose (Bld) [Mass/Vol]Ordered By: Mica Sauceda on 43-34-4869Ugtsgkm Blood, POC97 mg/dLNODE HealthcareLaboratory - Hematology and Cell countson 64-93-0363KgB2l (Bld) [Mass fraction]7.4 %NOMS HealthcareNo Panel InformationOrdered By: Mica Sauceda on 49-37-4165EZXK HealthcareTBH UA (CLEAN/CATCH) MICROSCOPIC IF INDICATEon 46-91-9505NYVNENXSJ URINENegativeNEGATIVENOMS HealthcareBLOOD URINENegative NEGATIVENOMS HealthcareClarity (U)CLEARCLEARNOMS HealthcareColor (U)YELLOWYELLOW NOMS HealthcareGLUCOSE URINE UANegativeNEGATIVE mg/dLNOMS Healthcare Interpretation and review of laboratory resultsAbnormalNOMS HealthcareKetones Ql (U)NegativeNEGATIVE mg/dLNOMS HealthcareLeukocyte esterase Test strip Ql (U) NegativeNEGATIVENOMS HealthcareNITRITE URINENegativeNEGATIVENOMS HealthcarepH (U)5.5 [pH]5.0 - 9.0NOMS HealthcareProtein (U) [Mass/Vol]30 mg/dLAbnormal NEG/TRACENOMS HealthcareSPECIFIC GRAVITY URINE>=1.391Mzfefsxq5.005 - 1.025NODE HealthcareURINE MICROSCOPIC INDICATEDYESNODE HealthcareUROBILINOGEN URINE1.0 EU/dL0.2 - 1.0 EU/dLNODE HealthcareCLINISYNCNOMS HealthcareALL CBC WITH AUTO DIFFon 95-52-5551WGLEAMLBF ABSOLUTE AUTO0.1NOMS HealthcareBasophils/100 WBC (Bld)0.5 %0.2 - 2.0 %NOMS HealthcareEosinophils/100 WBC (Bld)1.9 %0.9 - 7.0 % NOMS HealthcareErythrocyte distribution width (RBC) [Ratio]14.6 %11.0 - 15.0 % NOM HealthcareHematocrit (Bld) [Volume fraction]50.9 %High36.0 - 48.0 %NOM HealthcareHemoglobin (Bld) [Mass/Vol]16.1 g/lYGpge27.0 - 16.0 g/dLFreeman Orthopaedics & Sports MedicineIMMATURE GRANULOCYTES ABS AUTO0.04HighNOMineral Area Regional Medical CenterImmature granulocytes/100 WBC (Bld)0.3 %0.0 - 0.5 %[facility] HealthcareInterpretation and review of laboratory resultsAbnormalNODE HealthcareLYMPHOCYTES ABSOLUTE AUTO3.2 NOMPershing Memorial HospitalLymphocytes/100 WBC (Bld)25.1 %20.5 - 60.0 %[facility] ServicesH (RBC) [Entitic mass]29.2 pg26.7 - 34.0 pgNOSullivan County Memorial HospitalHC (RBC) [Mass/Vol] 31.6 g/dL29.9 - 35.2 g/dLSaint Francis Hospital & Health ServicesV (RBC) [Entitic vol]92.2 fL81.0 - 99.0 fLFreeman Orthopaedics & Sports MedicineMONOCYTES ABSOLUTE AUTO0.7NODE HealthcareMonocytes/100 WBC (Bld)5.2 %1.7 - 12.0 %NOM HealthcareNEUTROPHILS ABSOLUTE AUTO8.6HighFreeman Orthopaedics & Sports MedicineNeutrophils/100 WBC (Bld)67 %43.0 - 75.0 %[facility]opaedics & Sports MedicinePlatelet mean volume (Bld) [Entitic vol]12.8 fL9.5 - 13.5 fLFreeman Orthopaedics & Sports MedicineTBH EO #0.2NOMS HealthcareWORCESTER STATE [facility] NWX070HpmRRKAFulton Medical Center- Fulton RBC5.52HighNODE HealthcareWORCESTER STATE [facility]ITAL WBC12.8 [facility] CenterCLINISYNCNOMS HealthcareOffice Visiton 80-94-2939Mbbuni-up [id number] Mitzi Macias 1970 F Date Provider Department Center 08/08/2024 [id number] BRIDGES [facility] Family History Problem Relation Age of Onset Heart attack Paternal Grandmother Family Status - Relation Status Age at Paternal Grandmother Level of Service:23709 [place] OFFICE/OUTPATIENT ESTABLISHED MOD MDM 30 MIN Reason for Visit and Comments: Congestive Heart Failure [127] - Denies chest pain, SOB, and palpitations. Hypertension [411356] Hyperlipidemia [182] LVH [Other] Edema [[id number]] - Denies worsening edema. She sees wound care for RLE ulcer. She was seeing the vein specialists here in town but they are moving to [place] in a few weeks.NormalMemorial HospitalProvider Letteron 03-16-2616Hirydalh LetterProvider Letter June 11, 2024 MITZI [address]AS [address] [place] [id number] : 1970 To Whom It May Concern, Please excuse above patient from work. Date of Illness: From: 06/11/24 8:30am To: 06/11/24 12:30pm Comments: _Brian Macias was with his for her doctor's appointment. Sincerely, Andra Forrester, Surgical SchedulerNormSelect Medical Specialty Hospital - Southeast OhioUrology Office/Clinic Noteon 02-13-9177Vyjbhvt Office/Clinic NoteUrology Office/Clinic Note Chief Complaint 18 mth HPI Staff 53 yo here 18 month f/u CT for adrenal mass. CT SCAN 05/12/24-[facility] Previous DX: adrenal mass, kidney stone, left [...] (less invasive, lower stone free rate) and ureteroscopy/laserlitho with possible stent placement (more invasive, higher [...] When Contact Information REGLA PHIPPS, Elbert Joya, URL [facility] [address], [place] [address]- Additional Instructions: [address] AP w con Patient Education Steps to Quit Smoking Dietary Guidelines to Help Prevent Kidney Stones I, Maria Elena Negrete, personally scribed for Dr. Arauz on 06/11/2024 10:51:42. . Documentation recorded by the scribe, Maria Elena Negrete, accurately reflects the services(s) I performed and decisions made by me. Authenticated by Dr. Arauz on 06/11/2024 10:55:01. Problem List/Past Medical History [...] solution NovoLog, SubCutaneous, TIDAC potassium chloride 10 (more content not included)...[facility] County Medical CenterComment on above:Result Comment: Electronically Signed By: Elbert ARAUZ MD\.br\Date and Time Signed: 06/11/24 10:55 EST\.br\Electronically Co- Signed By: Maria Elena Negrete\.br\Date and Time Co-Signed: 06/11/24 10:53 EST Glucose (Bld) [Mass/Vol]Ordered By: Mica Sauceda on 41-61-9069Vmucxmf Blood, WLF268 mg/dLNODE HealthcareLaboratory - Hematology and Cell countson 05-27-2024 HbA1c (Bld) [Mass fraction]9.2 %[facility] HealthcareNo Panel InformationOrdered By: Mica Sauceda on 56-13-1882SSWO HealthcareCT ABDOMEN PELVIS W CONon 05-12-2024 [place] [address] CT Scan Report Signed Patient: MITZI MACIAS MR#: [id number] : 1970 Acct:[id number] Age/Sex: 53 / F ADM Date: 05/12/24 Loc: CT Attending Dr: Gaviota MAYERS Ordering Physician: Gaviota Adames Date of Service: 05/12/24 Procedure(s): CT abdomen pelvis w con Accession Number(s): [id number] cc: Mckayla Blas NP [place] [id number] Patient Name: MITZI MACIAS MRN: [id number] date: 1970 Sex: F Assigned Patient Location: CT Current Patient Location: Accession/Order Number: [id number] Exam Date: 05/12/2024 11:15 Report Date: 05/12/2024 14:16 At the request of: GAVIOTA ADAMES Procedure: CT abdomen pelvis w con EXAM: [...] Signed By: 05/12/24 1419 DD/ 1416 TD/TT: Set Making 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:TBHRadiology, Radiologist, MD - 05/12/2024 [place] [address] CT Scan Report Signed Patient: MITZI MACIAS MR#: [id number] : 1970 Acct:[id number] Age/Sex: 53 / F ADM Date: 05/12/24 Loc: CT Attending Dr: Gaviota MAYERS Ordering Physician: Gaviota Adames Date of Service: 05/12/24 Procedure(s): CT abdomen pelvis w con Accession Number(s): [id number] cc: Mckayla Blas NP [place] [id number] Patient Name: MITZI MACIAS MRN: [id number] date: 1970 Sex: F Assigned Patient Location: CT Current Patient Location: Accession/Order Number: [id number] Exam Date: 05/12/2024 11:15 Report Date: 05/12/2024 14:16 At the request of: GAVIOTA ADAMES Procedure: CT abdomen pelvis w con EXAM: [...] Dai M.D. Signed By: 05/12/24 1419 DD/ 15 TD/TT: Set Making 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: CARLOS HealthcareRadiology Study observation (narrative)[facility] HealthcareCT ABDOMEN PELVIS W CONOrdered By: Radiologist Radiology on 69-98-9899PTZU Ryan Work Phone: MR LUMBAR SPINE WO CONon 38-98-5281[place]ps[place] [address] Magnetic Resonance Report Signed Patient: MITZI MACIAS MR#: [id number] : 1970 Acct:[id number] Age/Sex: 53 / F ADM Date: 05/12/24 Loc: MRI Attending Dr: Angela Cochran NP Ordering Physician: Angela Cochran NP Date of Service: 05/12/24 Procedure(s): MR lumbar spine wo con Accession Number(s): [id number] cc: Mckayla Blas NP; Angela Cochran NP [place] [address] Patient Name: MITZI MACIAS MRN: [id number] date: 1970 Sex: F Assigned Patient Location: MRI Current Patient Location: CT Accession/Order Number: [id number] Exam Date: 05/12/2024 09:21 Report Date: 05/12/2024 14:41 At the request of: ANGELA OCCHRAN Procedure: MR lumbar spine wo con EXAMINATION: [...] as detailed above Electronically authenticated by: MARYANNE CELESTIN Date: 05/12/2024 14:41 Dictated By: Maryanne Celestin M.D. 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:TBHRadiology, Radiologist, - 05/12/2024 [place] [address] Magnetic Resonance Report Signed Patient: MITZI MACIAS MR#: [id number] : 1970 Acct:[id number] Age/Sex: 53 / F ADM Date: 05/12/24 Loc: MRI Attending Dr: Angela Cochran NP Ordering Physician: Angela Cochran NP Date of Service: 05/12/24 Procedure(s): MR lumbar spine wo con Accession Number(s): [id number] cc: Mckayla Blas NP; Angela Cochran NP [address] [address] Patient Name: MITZI MACIAS MRN: [facility]:[id number] date: 1970 Sex: F Assigned Patient Location: MRI Current Patient Location: CT Accession/Order Number: [id number] Exam Date: 05/12/2024 09:21 Report Date: 05/12/2024 14:41 At the request of: ANGELA COCHRAN Procedure: MR lumbar spine wo con EXAMINATION: [...] as detailed above Electronically authenticated by: MARYANNE CELESTIN Date: 05/12/2024 14:41 Dictated By: Maryanne Celestin M.D. 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: CARLOS HealthcareRadiology Study observation (narrative)[facility] LUMBAR SPINE WO CONOrdered By: Radiologist Radiology on [id number] Work Phone: TB CREATININEon 75-51-6194Vsjukpzjvt [Mass/Vol]0.92 mg/dL0.55 - 1.02 mg/dLNODE HealthcareGFR/1.73 sq M.predicted CKD-EPI (S/P/Bld) [Vol rate/Area]>60>=60 mL/min/1.73m 2NOMS HealthcareTBH EGFR-NON AF MARTINIQUAIS>60 >=60 mL/min/1.73m 2NOMS HealthcareCLINISYNCNSELECT [facility] [place] [facility] [place] HealthcareSEGMENTAL BLOOD PRESSUREon 72-86-0232Lpu[place], [place] [address] Vein Report Signed Patient: MITZI MACIAS MR#: [id number] : 1970 Acct:[id number] Age/Sex: 53 / F ADM Date: 04/24/24 Loc: VC Attending Dr: Comfort Pretty Ordering Physician: Comfort Pretty Date of Service: 04/24/24 Procedure(s): VC SEGMENTAL PRESSURES Accession Number(s): [id number] cc: Mckayla Blas NP; Comfort Pretty [place] [id number] Patient Name: MITZI MACIAS MRN: [id number] date: 1970 Sex: F Assigned Patient Location: Current Patient Location: Accession/Order Number: [id number] Exam Date: 04/24/2024 10:25 Report Date: 04/24/2024 11:20 At the request of: COMFORT PRETTY Procedure: VC SEGMENTAL PRESSURES EXAM: VC SEGMENTAL PRESSURES HISTORY: R09.89 COMPARISON: None. FINDINGS: Segmental pressures presented as follows (right, left) in mmHg. Brachial: 169, 166 Upper thigh: Not obtained Lower thigh: 129, 119 Calf: 124, 106 DPA: 108, 105 METHODS SPECIALIST: 100, 91 1st Toe: 124, 142 ISABELLE: [...] arterial occlusive disease Electronically authenticated by: MARYANNE CELESTIN Date: 04/24/2024 11:20 Dictated By: Maryanne Celestin M.D. Signed By: 04/24/24 1123 DD/ 1120 TD/TT: Set Making 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:TBHRadiology, Radiologist, - 04/24/2024 [place] [address] Vein Report Signed Patient: MITZI MACIAS MR#: [id number] : 1970 Acct:[id number] Age/Sex: 53 / F ADM Date: 04/24/24 Loc: VC Attending Dr: Comfort Pretty Ordering Physician: Comfort Pretty Date of Service: 04/24/24 Procedure(s): VC SEGMENTAL PRESSURES Accession Number(s): [id number] cc: Mckayla Blas NP; Comfort Pretty [address] [place] [id number] Patient Name: MITZI MACIAS MRN: [facility]:[id number] date: 1970 Sex: F Assigned Patient Location: Current Patient Location: VC Accession/Order Number: [id number] Exam Date: 04/24/2024 10:25 Report Date: 04/24/2024 11:20 At the request of: COMFORT PRETTY Procedure: VC SEGMENTAL PRESSURES EXAM: VC SEGMENTAL PRESSURES HISTORY: R09.89 COMPARISON: None. FINDINGS: Segmental pressures presented as follows (right, left) in mmHg. Brachial: 169, 166 Upper thigh: Not obtained Lower thigh: 129, 119 Calf: 124, 106 DPA: 108, 105 METHODS SPECIALIST: 100, 91 1st Toe: 124, 142 ISABELLE: [...] arterial occlusive disease Electronically authenticated by: MARYANNE CELESTIN Date: 04/24/2024 11:20 Dictated By: Maryanne Celestin M.D. Signed By: 04/24/24 1123 DD/ 1120 TD/TT: Set Making 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: CARLOS HealthcareRadiology Study observation (narrative)[facility] HealthcareSEGMENTAL BLOOD PRESSUREOrdered By: Radiologist Radiology on 58-18-1744WWUJ Ryan Work Phone: mm TOMOSYNTHESIS SCREENING BIon 49-41-9304QfyS[place], [place] [address] Mammography Report Signed Patient: MITZI MACIAS MR#: [id number] : 1970 Acct:[id number] Age/Sex: 53 / F ADM Date: 12/13/23 Loc: MAMMO Attending Dr: Mckayla Blas NP Ordering Physician: Mckayla Blas NP Results: Date of Service: 12/13/23 Follow Up: Procedure(s): MM tomosynthesis screening BI Accession Number(s): [id number] cc: Mckayla Blas NP Patient Name: MITZI MACIAS MR#: [id number] : 1970 Exam Date: 12/13/2023 Ordering Doctor: [...] unknown cancer at age 75. LOCATION: [facility] BREAST COMPOSITION: The breasts are [...] BIOPSIED. Dictated by: Patricia Veloz M.D. on 12/14/2023 at 11:18 Approved by: Patricia Veloz M.D. on 12/14/2023 at 11:21 Dictated By: Patricia Veloz M.D. Signed By: 12/14/23 1122 DD/ 1121 TD/TT: Set Making 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:TBHRadiology, Radiologist, MD - 12/14/2023 [place] [address] Mammography Report Signed Patient: MITZI MACIAS MR#: [id number] : 1970 Acct:[id number] Age/Sex: 53 / F ADM Date: 12/13/23 Loc: MAMMO Attending Dr: Mckayla Blas NP Ordering Physician: Mckayla Blas NP Results: Date of Service: 12/13/23 Follow Up: Procedure(s): MM tomosynthesis screening BI Accession Number(s): [id number] cc: Mckayla Blas NP Patient Name: MITZI MACIAS MR#: [id number] : 1970 Exam Date: 12/13/2023 Ordering Doctor: [...] unknown cancer at age 75. LOCATION: [facility] BREAST COMPOSITION: The breasts are [...] BIOPSIED. Dictated by: Patricia Veloz M.D. on 12/14/2023 at 11:18 Approved by: Patricia Veloz M.D. on 12/14/2023 at 11:21 Dictated By: Patricia Veloz M.D. Signed By: 12/14/23 1122 DD/ 1121 TD/TT: Set Making 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: [facility] MedicineRadiology Study observation (narrative)[facility] TOMOSYNTHESIS SCREENING BIOrdered By: Radiologist Radiology on 26-94-4482HWUSFre[facility] Work Phone: bLOOD CULTURE 1on 58-44-1847GOEZZ CULTURE 1 Blood Culture 1 NG5D NO GROWTH AT 5 DAYS.^NO GROWTH AT 5 DAYS. [facility] HealthcareBLOOD CULTURE 2on 25-15-4155BLKYU CULTURE 2 Blood Culture 2 NG5D NO GROWTH AT 5 DAYS.^NO GROWTH AT 5 DAYS. [facility] Sports MedicineNo Panel Informationon 70-37-1605OSCWOYFOWWEMT HealthcareECG 12-LEADon 96-76-4479Dns [address] [address] Electrocardiograph Report Signed Patient: MITZI MACIAS MR#: [id number] : 1970 Acct:[id number] Age/Sex: 53 / F ADM Date: 08/31/23 Loc: [place] 214-[address]: Jacqueline Becerra D.O. Ordering Physician: Andra Alcala Date of Service: 08/31/23 Procedure(s): ECG 12 lead Accession Number(s): [id number] cc: [facility] Test Date: 2023-08-31 Pat Name: MITZI MACIAS Department: Room: - Gender: Female Order Processing Specialist: : 1970 Requested By: MCKAYLA BLAS Order Number: [id number] Reading MD: LAURI DIOR Measurements Intervals Tuttle Rate: 102 P: 67 FL: 144 QRS: 52 QRSD: 72 T: 49 QT: 326 QTc: 385 Interpretive Statements 1120 Sinus tachycardia 4068 Nonspecific Twave abnormality 8102 Low QRS voltage in chest leads 9140 abnormal rhythm ECG Compared to ECG 12/04/2022 21:27:48 Electronically Signed On 09-02-2023 7:31:43 EST by LAURI DIOR Dictated By: Lauri Dior D.O. Signed By: 09/02/23 0732 DD/ 1808 TD/TT: Set Making 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:TBHRadiology, Radiologist, - 09/02/2023 [place] [address] Electrocardiograph Report Signed Patient: MITZI MACIAS MR#: [id number] : 1970 Acct:[id number] Age/Sex: 53 / F ADM Date: 08/31/23 Loc: MS 214-[address]: Jacqueline Becerra D.O. Ordering Physician: Andra Alcala Date of Service: 08/31/23 Procedure(s): ECG 12 lead Accession Number(s): [id number] cc: [facility] Test Date: 2023-08-31 Pat Name: MITZI MACIAS Department: Room: - Gender: Female Order Processing Specialist: : 1970 Requested By: MCKAYLA BLAS Order Number: [id number] Reading MD: LAURI DIOR Measurements Intervals Tuttle Rate: 102 P: 67 FL: 144 QRS: 52 QRSD: 72 T: 49 QT: 326 QTc: 385 Interpretive Statements 1120 Sinus tachycardia 4068 Nonspecific Twave abnormality 8102 Low QRS voltage in chest leads 9140 abnormal rhythm ECG Compared to ECG 12/04/2022 21:27:48 Electronically Signed On 09-02-2023 7:31:43 EST by LAURI DIOR Dictated By: Lauri Dior D.O. Signed By: 09/02/23 0732 DD/ 1808 TD/TT: Set Making 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: CARLOS [facility] 12-LEADOrdered By: Radiologist Radiology on 69-26-1831SNYB Ryan Work Phone: ECG 12-LEADon 77-80-3956Froakqgiq Study observation (narrative)[facility]OSPITALHenna [facility] Medical CenterCBC AUTO DIFFon 49-09-0866RLUG #0.0 103/ulNormal 0.0-0.1The [facility] CenterComment on above:Performed By: #### CBC #### [facility] [address] [place] [address] Dr. Ashlie HillsBasophils/100 WBC (Bld)0.1 %Critically low0.2-2.0The [facility] CenterComment on above:Performed By: #### CBC #### [facility] [address] [place] [address] Dr. Ashlie Mcintosh #0.0 103/ulNormal0.0-0.7The [facility] CenterComment on above: Performed By: #### CBC #### [facility] [address] [place] [address] Dr. Ashlie Grahamosinophils/100 WBC (Bld)0.0 %Critically low0.9-7.0The [facility] CenterComment on above:Performed By: #### CBC #### [facility] [address] [place] [address] Dr. Ashlie Grahamrythrocyte distribution width (RBC) [Ratio]14.9 %Ohconi12.0-15.0 The [facility] CenterComment on above:Performed By: #### CBC #### [facility] [address] [place] [address] Dr. Yilan ChangHematocrit (Bld) [Volume fraction]46.2 %Vypxsb06.0-48.0The [facility] CenterComment on above:Performed By: #### CBC #### [facility] [address] [place] [address] Dr. Ashlie HillsHemoglobin (Bld) [Mass/Vol]14.7 g/jXMtjqwj24.0-16.0The [facility]erva HospitalComment on above:Performed By: #### CBC #### [facility] [address] [place] [address] Dr. Ashlie HillsIG #0.06 10e3/ulCritically high0.00-0.03The [facility] Comment on above:Performed By: #### CBC #### [facility] [address] [place] [address] Dr. Ashlie HillsIG %0.4 %Normal0.0-0.5The [facility] CenterComment on above: Performed By: #### CBC #### [facility] [address] [place] [address] Dr. Ashlie Swenson #1.3 103/ulNormal1.2-3.8The [facility] CenterComment on above:Performed By: #### CBC #### [facility] [address] [place] [address] Dr. Ashlie Jademphocytes/100 WBC (Bld)9.4 %Critically low20.5-60.0The [facility] CenterComment on above:Performed By: #### CBC #### [facility] [address] [place] [address] Dr. Ashlie HillsMANUAL DIFF REQNONormalThe [facility] CenterComment on above: Performed By: #### CBC #### [facility] [address] [place] [address] Dr. Ashlie Granger (RBC) [Entitic mass]28.4 rcNllnoy42.7-34.0The [facility] CenterComment on above:Performed By: #### CBC #### [facility] [address] [place] [address] Dr. Ashlie Mckeon (RBC) [Mass/Vol]31.8 g/vGHqbzpj82.9-35.2The [facility] CenterComment on above:Performed By: #### CBC #### [facility] [address] [place] [address] [address] Ashlie MckeonV (RBC) [Entitic vol]89.4 wDPgjrmz67.0-99.0The [facility] CenterComment on above:Performed By: #### CBC #### [facility] [address] [place] [address] [address] Ashlie Killian #0.5 103/ulNormal0.3-0.8The [facility] CenterComment on above:Performed By: #### CBC #### [facility] [address] [place] [address] [address] Ashlie Palominoocytes/100 WBC (Bld)3.4 %Normal1.7-12.0[facility] Comment on above:Performed By: #### CBC #### [facility] [address] [place] [address] [address] Ashlie Olsen #11.8 103/ulCritically high1.4-6.5The [facility] Comment on above:Performed By: #### CBC #### [facility] [address] [place] [address] Dr. Ashlie Steinutrophils/100 WBC (Bld)86.7 %Critically high43.0-75.0The [facility] CenterComment on above:Performed By: #### CBC #### [facility] [address] [address] [address] Ashlie Lantigualet mean volume (Bld) [Entitic vol]12.6 fLNormal9.5-13.5The [facility] CenterComment on above:Performed By: #### CBC #### [facility] [address] [place] [address] [address] Ashlie HillsPLT133 103/ulCritically vzj162-546Tjp [facility] CenterComment on above:Performed By: #### CBC #### [facility] [address] [place] [address] [address] Ashlie HillsRBC5.17 106/ulNormal4.20-5.40The [facility] CenterComment on above:Performed By: #### CBC #### [facility] [address] [place] [address] Dr. Ashlie HillsWBC13.6 103/ulCritically high4.0-11.0The [facility] CenterComment on above:Performed By: #### CBC #### [facility] [address] [place] [address] Dr. Ashlie HillsMAGNESIUMon 77-37-0125Ogdqogapd [Mass/Vol]2.2 mg/dLNormal1.8-2.4 [facility] CenterComuniversity of mich[facility] health on above:Performed By: #### INFLUAB #### [facility] [address] [place] [address] Dr. Ashlie HillsPOINT OF CARE GLUCOSEon 15-71-1319Kagslft [Mass/Vol]340 mg/dL Critically suqb80-031Gze [facility] CenterComment on above:Performed By: #### POCGLUC #### [facility] [address] [place] [address] Dr. Ashlie HillsGlucose [Mass/Vol]276 mg/dLCritically phjv88-115Hct [facility] CenterComment on above:Performed By: #### CBC #### [facility] [address] [place] [address] Dr. Ashlie HillsGlucose [Mass/Vol]333 mg/dLCritically lrww67-949Tzz [facility] CenterComment on above:Performed By: #### CBC #### [facility] [address] [place] [address] Dr. Ashlie HillsPROF CHEM 8 (BAS METB)on 32-90-5538Cxeji gap [Moles/Vol]10.9 mmol/LNormalPremier Health Miami Valley Hospital NorthComment on above:Performed By: #### INFLUAB #### [facility] [address] [place] [address] Dr. Ashlie HillsCalcium [Mass/Vol]9.3 mg/dLNormal8.5-10.1[facility] Comment on above:Performed By: #### INFLUAB #### [facility] [address] [address] [address] Ashlie HillsChloride [Moles/Vol]103 mmol/LHbuuyt72-544Cbl [facility] Comment on above:Performed By: #### INFLUAB #### [facility] [address] [address] [address] Ashlie HillsCO2 [Moles/Vol]31.2 mmol/UOkszpr74.0-32.0[facility] Comment on above:Performed By: #### INFLUAB #### [facility] [address] [place] [address] Dr. Ashlie HillsCreatinine [Mass/Vol]0.96 mg/dLNormal0.55-1.02The [facility] CenterComment on above:Performed By: #### INFLUAB #### [facility] [address] [place] [address] Dr. Ashlie GrahamGFR-AF MARTINIQUAIS>60Normal>=60The [facility] CenterComment on above:Performed By: #### INFLUAB #### [facility] [address] [place] [address] Dr. Ashlie GrahamGFR-NON AF MARTINIQUAIS>60Normal>=60The [facility] CenterComment on above:Performed By: #### INFLUAB #### [facility] [address] [address] [address] Ashlie HillsGlucose [Mass/Vol]288 mg/dLCritically rxwb80-539Jeg [facility] CenterComment on above:Performed By: #### INFLUAB #### [facility] [address] [address] [address] Ashlie HillsPotassium [Moles/Vol]5.1 mmol/LNormal3.5-5.1[facility] Comment on above:Performed By: #### INFLUAB #### [facility] [address] [place] [address] Dr. Ashlie HillsSodium [Moles/Vol]140 mmol/HXlfpph572-417BrwPremier Health [facility] Comment on above:Performed By: #### INFLUAB #### [facility] [address] [place] [address] Dr. Ashlie Jones nitrogen [Mass/Vol]30.0 mg/dLCritically high7.0-18.0The [facility] CenterComment on above:Performed By: #### INFLUAB #### [facility] [address] [place] [address] Dr. Ashlie Jones nitrogen/Creatinine [Mass ratio]31.2 mg/mgNormalThe Minerva HospitalComment on above:Performed By: #### INFLUAB #### [facility] [address] [place] [address] Dr. Ashlie Chinchilla AUTO DIFFon 37-88-2137LJSE #0.0 103/ulNormal0.0-0.1The [facility] CenterComment on above:Performed By: #### CBC #### [facility] [address] [place] [address] Dr. Ashlie HillsBasophils/100 WBC (Bld)0.4 %Normal0.2-2.0[facility] Comment on above:Performed By: #### CBC #### [facility] [address] [place] [address] Dr. Ashlie Mcintosh #0.0 103/ulNormal0.0-0.7The [facility] CenterComment on above: Performed By: #### CBC #### [facility] [address] [place] [address] Dr. Ashlie Grahamosinophils/100 WBC (Bld)0.0 %Critically low0.9-7.0The [facility] CenterComment on above:Performed By: #### CBC #### [facility] [address] [place] [address] Dr. Ashlie Grahamrythrocyte distribution width (RBC) [Ratio]14.8 %Dkyfao40.0-15.0 The [facility] CenterComment on above:Performed By: #### CBC #### [facility] [address] [place] [address] Dr. Ashlie HillsHematocrit (Bld) [Volume fraction]49.9 %Critically high36.0-48.0 The [facility] CenterComment on above:Performed By: #### CBC #### [facility] [address] [place] [address] Dr. Ashlie HillsHemoglobin (Bld) [Mass/Vol]15.7 g/rFKsgoxa33.0-16.0The [facility] CenterComment on above:Performed By: #### CBC #### [facility] [address] [place] [address] Dr. Ashlie Hunter #0.04 10e3/ulCritically high0.00-0.03The [facility] Comment on above:Performed By: #### CBC #### [facility] [address] [place] [address] Dr. Ashlie Hunter %0.5 %Normal0.0-0.5The [facility] CenterComment on above: Performed By: #### CBC #### [facility] [address] [place] [address] Dr. Ashlie Swenson #1.1 103/ulCritically low1.2-3.8The [facility] Comment on above:Performed By: #### CBC #### [facility] [address] [place] [address] Dr. Ashlie Dsouzahocytes/100 WBC (Bld)12.7 %Critically low20.5-60.0The [facility] CenterComment on above:Performed By: #### CBC #### [facility] [address] [place] [address] Dr. Ashlie GhoshUAL DIFF REQNONormalThe [facility] CenterComment on above: Performed By: #### CBC #### [facility] [address] [place] [address] Dr. Ashlie Granger (RBC) [Entitic mass]28.1 xtGhmjqx89.7-34.0The [facility] CenterComment on above:Performed By: #### CBC #### [facility] [address] [place] [address] Dr. Ashlie Mckeon (RBC) [Mass/Vol]31.5 g/aLYrufce21.9-35.2The [facility] CenterComment on above:Performed By: #### CBC #### [facility] [address] [address] [address] Ashlie Mckeon (RBC) [Entitic vol]89.3 hYPifunf34.0-99.0The [facility] CenterComment on above:Performed By: #### CBC #### [facility] [address] [place] [address] Dr. Ashlie Killian #0.1 103/ulCritically low0.3-0.8The [facility] CenterComment on above:Performed By: #### CBC #### [facility] [address] [place] [address] Dr. Ashlie Palominoocytes/100 WBC (Bld)1.3 %Critically low1.7-12.0The [facility] CenterComment on above:Performed By: #### CBC #### [facility] [address] [place] [address] Dr. Ashlie Olsen #7.2 103/ulCritically high1.4-6.5The [facility] Comment on above:Performed By: #### CBC #### [facility] [address] [place] [address] Dr. Ashlie Steinutrophils/100 WBC (Bld)85.1 %Critically high43.0-75.0The [facility] CenterComment on above:Performed By: #### CBC #### [facility] [address] [place] [address] Dr. Ashlie Lantigualet mean volume (Bld) [Entitic vol]12.2 fLNormal9.5-13.5The [facility] CenterComment on above:Performed By: #### CBC #### [facility] [address] [place] [address] Dr. Ashlie HillsPLT116 103/ulCritically hhy922-132Tme [facility] CenterComment on above:Performed By: #### CBC #### [facility] [address] [address] [address] Ashlie HillsRBC5.59 106/ulCritically high4.20-5.40The [facility] Comment on above:Performed By: #### CBC #### [facility] [address] [address] [address] Ashlie HillsWBC8.5 103/ulNormal4.0-11.0The [facility] CenterComment on above: Performed By: #### CBC #### [facility] [address] [address] [address] Ashlie Harrison CHEST WO W CONon 45-46-7003JYK CHEST WO W CONEXAMINATION: CTA CHEST WO W CON, 12/04/2022 7:57 [...] Electronically authenticated by: HATTIE GOFF Date: 2022-12-05 01:[address] [place], [place] [address]ue HospitalMAGNESIUMon 06-44-2155Rcnkgcgfi [Mass/Vol]2.1 mg/dLNormal 1.8-2.4The [facility] CenterComment on above:Performed By: #### POCGLUC #### [facility] [address] [address] [address] Ashlie HillsPOINT OF CARE GLUCOSEon 05-70-1011Gdjbaeb [Mass/Vol]293 mg/dL Critically znpq53-130RamPremier Health Miami Valley Hospital NorthComment on above:Performed By: #### POCGLUC #### [facility] [address] [address] [address] Ashlie HillsGlucose [Mass/Vol]269 mg/dLCritically pefb67-784Bcc [facility] CenterComment on above:Performed By: #### POCGLUC #### [facility] [address] [place] [address] Dr. Ashlie HillsGlucose [Mass/Vol]223 mg/dLCritically ztpr95-877Kdp [facility] CenterComment on above:Performed By: #### CVDAGS #### [facility] [address] [address] [address] Ashlie HillsPROF CHEM 8 (BAS METB)on 16-42-1792Ngmlq gap [Moles/Vol]11.6 mmol/LNormalPremier Health Miami Valley Hospital NorthComment on above:Performed By: #### POCGLUC #### [facility] [address] [address] [address] Ashlie HillsCalcium [Mass/Vol]9.2 mg/dLNormal8.5-10.1[facility] Comment on above:Performed By: #### POCGLUC #### [facility] [address] [address] [address] Ashlie HillsChloride [Moles/Vol]102 mmol/KQqudmh70-237AicPremier Health [facility] North Comment on above:Performed By: #### POCGLUC #### [facility] [address] [place] [address] Dr. Ashlie HillsCO2 [Moles/Vol]28.7 mmol/TFoouwd01.0-32.0The [facility] Comment on above:Performed By: #### POCGLUC #### [facility] [address] [address] [address] Ashlie HillsCreatinine [Mass/Vol]1.04 mg/dLCritically high0.55-1.02[facility] NorthComment on above:Performed By: #### POCGLUC #### [facility] [address] [address] [address] Ashlie GrahamGFR-AF MARTINIQUAIS>60Normal>=60The [facility] CenterComment on above:Performed By: #### POCGLUC #### [facility] [address] [address] [address] Ashlie GrahamGFR-NON AF IEUFUJPK34 mL/min/1.39q5Gbcddokzjr low>=60The [facility] CenterComment on above:Performed By: #### POCGLUC #### [facility] [address] [address] [address] Ashlie HillsGlucose [Mass/Vol]231 mg/dLCritically mnhr97-713Hku [facility] CenterComment on above:Performed By: #### POCGLUC #### [facility] [address] [address] [address] Ashlie HillsPotassium [Moles/Vol]4.3 mmol/LNormal3.5-5.1[facility] Comment on above:Performed By: #### POCGLUC #### [facility] [address] [address] [address] Ashlie HillsSodium [Moles/Vol]138 mmol/GNohkqo631-319XhcPremier Health [facility] Comment on above:Performed By: #### POCGLUC #### [facility] [address] [address] [address] Ashlie HillsUrea nitrogen [Mass/Vol]17.0 mg/dLNormal7.0-18.0The [facility] CenterComment on above:Performed By: #### POCGLUC #### [facility] [address] [address] [address] Ashlie HillsUrea nitrogen/Creatinine [Mass ratio]16.3 mg/mgNormalThe [facility] CenterComment on above:Performed By: #### POCGLUC #### [facility] [address] [address] [address] Ashlie HillsRESPIRATORY PANEL PLUSon [id number] detectedNormal NOT DETECTEDThe [facility] CenterComment on above:Performed By: #### CVDAGS #### [facility] [address] [address] [address] Ashlie Gandhi ParapertusisNot detectedNormalNOT DETECTEDThe [facility] CenterComment on above:Performed By: #### CVDAGS #### [facility] [address] [address] [address] Ashlie Gandhi PertussisNot detectedNormalNOT DETECTEDThe [facility] on above:Performed By: #### CVDAGS #### [facility] [address] [address] [address] Ashlie HillsChlamydia PneumoniaeNot detectedNormalNOT DETECTEDThe [facility] CenterComment on above:Performed By: #### CVDAGS #### [facility] [address] [address] [address] Ashlie HillsCoronavirus 229ENot detectedNormalNOT DETECTEDThe [facility] CenterComuniversity of [facility] on above:Performed By: #### CVDAGS #### [facility] [address] [address] [address] Ashlie HillsCoronavirus [id number] detectedNormalNOT DETECTEDThe [facility] CenterComment on above:Performed By: #### CVDAGS #### [facility] [address] [address] [address] Ashlie HillsCoronavirus [id number] detectedNormalNOT DETECTEDThe [facility] CenterComment on above:Performed By: #### CVDAGS #### [facility] [address] [address] [address] Ashlie HillsCoronavirus [id number] detectedNormalNOT DETECTEDThe [facility] CenterComment on above:Performed By: #### CVDAGS #### [facility] [address] [address] [address] Ashlie Centeno H1Not detectedNormalNOT DETECTEDThe [facility] Comment on above:Performed By: #### CVDAGS #### [facility] [address] [address] [address] Ashlie Centeno H1 2009Not detectedNormalNOT DETECTEDThe [facility] CenterComment on above:Performed By: #### CVDAGS #### [facility] [address] [address] [address] Ashlie Centeno H3Not detectedNormalNOT DETECTEDThe [facility] Comment on above:Performed By: #### CVDAGS #### [facility] [address] [address] [address] Ashlie Lockhart BNot detectedNormalNOT DETECTEDPrem[facility] Comment on above:Performed By: #### CVDAGS #### [facility] [address] [address] [address] Ashlie ChávezapneumovirusNot detectedNormalNOT DETECTEDThe [facility] CenterComment on above:Performed By: #### CVDAGS #### [facility] [address] [address] [address] Ashlie Jimenez. PneumoniaeNot detectedNormalNOT DETECTEDThe [facility] CenterComuniversity of [facility] on above:Performed By: #### CVDAGS #### [facility] [address] [address] [address] Ashlie Mendieta 1Not detectedNormalNOT DETECTEDThe [facility] CenterComment on above:Performed By: #### CVDAGS #### [facility] [address] [address] [address] Ashlie Mendieta 2Not detectedNormalNOT DETECTEDThe [facility] CenterComun[facility] on above:Performed By: #### CVDAGS #### [facility] [address] [address] [address] Ashlie Mendieta 3DetectedAbnormalNOT DETECTEDThe [facility] Comment on above:Performed By: #### CVDAGS #### [facility] [address] [place] [address] Dr. Ashlie Harringtonfluenza 4Not detectedNormalNOT DETECTEDThe [facility] CenterComment on above:Performed By: #### CVDAGS #### [facility] [address] [place] [address] Dr. Ashlie HillsRhino/EnterovirusNot detectedNormalNOT DETECTEDThe [facility] CenterComment on above:Performed By: #### CVDAGS #### [facility] [address] [place] [address] Dr. Ashlie Gallagher Header 1RESPIRATORY PANEL: VIRUSESHol[facility] Comment on above:Performed By: #### CVDAGS #### [facility] [address] [place] [address] Dr. Ashlie Gallagher Header 2RESPIRATORY PANEL: BACTERIAHolzer Medical Center – JacksonComment on above:Performed By: #### CVDAGS #### [facility] [address] [place] [address] Dr. Ashlie TerryVNot detectedNormalNOT DETECTEDThe [facility] CenterComun[facility] of [facility] on above:Performed By: #### CVDAGS #### [facility] [address] [place] [address] Dr. Ashlie Finney-CoV-2 (COVID-19) RNA MADDY+probe Ql (Unsp spec)Not detected NormalNOT DETECTEDThe [facility] Hospitalment on above:Performed By: #### CVDAGS #### [facility] [address] [place] [address] Dr. Ashlie HillsXR CHEST 1 Von [id number] CHEST 1 VEXAMINATION: XR CHEST 1 V HISTORY: Shortness of breath COMPARISON: Chest x-ray 08/09/2021 TECHNIQUE: Portable chest FINDINGS: The lung parenchyma is free of consolidation or infiltrate. No pneumothorax or pleural effusion. The cardiac, mediastinal and hilar contours are normal. The visualized osseous structures exhibit no gross abnormality. IMPRESSION: No acute cardiopulmonary abnormality. Electronically authenticated by: MARYANNE POWER Date: 2022-12-04 22:23NoRegency Hospital CompanyBLOOD GASES BTYon [id number] City HospitalComment on above:Performed By: #### CBC #### [facility] [address] [address] [address] Ashlie Duran TESTPositiveHolzer Medical Center – JacksonComuniversity of [facility] health on above: Performed By: #### CBC #### [facility] [address] [address] [address] Ashlie Crenshaw excess Calc (Bld) [Moles/Vol]5.4 mmol/LCritically high -2.0-2.0The [facility] on above:Performed By: #### CBC #### [facility] [address] [address] [address] Ashlie Cevallos [facility] on above: Performed By: #### CBC #### [facility] [address] [address] [address] Ashlie HillsCPGrand Lake Joint [facility] on above:Performed By: #### CBC #### [facility] [address] [address] [address] Ashlie RodHbgqaTMR4SqqjvlBhjBarberton Citizens Hospital on above:Performed By: #### CBC #### [facility] [address] [address] [address] Ashlie BahenaO3 (Bld) [Moles/Vol]30.8 mmol/LCritically high22.0-26.0The [facility] on above:Performed By: #### CBC #### [facility] [address] [address] [address] Ashlie HillsLPMNormalPremier Health [facility] NorthComuniversity of [facility] health on above:Performed By: #### CBC #### [facility] [address] [address] [address] Ashlie HackettWilson Memorial HospitalComuniversity of [facility] health on above: Performed By: #### CBC #### [facility] [address] [address] [address] Ashlie HillsOxygen (Bld) [Partial pressure]46.3 mm[Hg]Critically low 80.0-100.0The [facility] Medical CenterComment on above:Performed By: #### CBC #### [facility] [address] [place] [address] Dr. Ashlie HillsOxygen saturation in Blood83.9 %Critically low95.0-100.0The [facility] on above:Performed By: #### CBC #### [facility] [address] [place] [address] Dr. Ashlie HillsPCO254.2 mmHgCritically high35.0-45.0The [facility] CenterComuniversity of [facility] health on above:Performed By: #### CBC #### [facility] [address] [place] [address] Dr. Ashlie HillsOhioHealth Dublin Methodist HospitalComuniversity of [facility] health on above:Performed By: #### CBC #### [facility] [address] [place] [address] Dr. Aslhie Knapp (Bld)7.363 [pH]Normal7.350-7.450The [facility] on above:Performed By: #### CBC #### [facility] [address] [place] [address] Dr. Ashlie VerasCleveland Clinic [facility] on above:Performed By: #### CBC #### [facility] [address] [place] [address] Dr. Ashlie HillsAshtabula County Medical CenterComuniversity of [facility] health on above:Performed By: #### CBC #### [facility] [address] [place] [address] Dr. Ashlie Avendano [facility] SystemCom[facility] on above: Performed By: #### CBC #### [facility] [address] [place] [address] Dr. Ashlie GoldWright-Patterson Medical CenterComuniversity of [facility] health on above:Performed By: #### CBC #### [facility] [address] [place] [address] Dr. Ashlie HillsSt. Elizabeth HospitalComuniversity of [facility] health on above:Performed By: #### CBC #### [facility] [address] [place] [address] Dr. Ashlie DoeNormalThe [facility] Medical CenterComment on above:Performed By: #### CBC #### [facility] [address] [place] [address] Dr. Ashlie Perry [id number] peptide B (Bld) [Mass/Vol]76.0 pg/mL Normal<=900.0The [facility] CenterComment on above:Performed By: #### POCGLUC #### [facility] [address] [place] [address] Dr. Ashlie Chinchilla AUTO DIFFon [id number] #0.1 103/ulNormal0.0-0.1The [facility] CenterComment on above:Performed By: #### CBC #### [facility] [address] [place] [address] Dr. Ashlie HillsBasophils/100 WBC (Bld)0.6 %Normal0.2-2.0[facility] Comment on above:Performed By: #### CBC #### [facility] [address] [place] [address] Dr. Ashlie Mcintosh #0.2 103/ulNormal0.0-0.7The [facility] CenterComuniversity of [facility] health on above: Performed By: #### CBC #### [facility] [address] [place] [address] Dr. Ashlie Grahamosinophils/100 WBC (Bld)1.9 %Normal0.9-7.0[facility] Comment on above:Performed By: #### CBC #### [facility] [address] [place] [address] Dr. Ashlie Grahamrythrocyte distribution width (RBC) [Ratio]15.0 %Neakpk85.0-15.0 [facility] NorthComment on above:Performed By: #### CBC #### [facility] [address] [place] [address] Dr. Ashlie HillsHematocrit (Bld) [Volume fraction]49.1 %Critically high36.0-48.0 The [facility] CenterComment on above:Performed By: #### CBC #### [facility] [address] [place] [address] Dr. Ashlie HillsHemoglobin (Bld) [Mass/Vol]15.6 g/yLEbgvaa21.0-16.0The [facility] CenterComment on above:Performed By: #### CBC #### [facility] [address] [place] [address] Dr. Ashlie Hunter #0.02 10e3/ulNormal0.00-0.03The [facility] CenterComment on above:Performed By: #### CBC #### [facility] [address] [place] [address] Dr. Ashlie Hunter %0.2 %Normal0.0-0.5The [facility] CenterComment on above: Performed By: #### CBC #### [facility] [address] [place] [address] Dr. Ashlie Swenson #2.8 103/ulNormal1.2-3.8The [facility] CenterComment on above:Performed By: #### CBC #### [facility] [address] [place] [address] Dr. Ashlie Dsouzahocytes/100 WBC (Bld)29.9 %Zsepwv61.5-60.0The [facility] CenterComment on above:Performed By: #### CBC #### [facility] [address] [place] [address] Dr. Ashlie GhoshUAL DIFF REQNONormalThe [facility] CenterComment on above: Performed By: #### CBC #### [facility] [address] [place] [address] Dr. Ashlie Granger (RBC) [Entitic mass]28.5 iyLatyuo71.7-34.0The [facility] CenterComment on above:Performed By: #### CBC #### [facility] [address] [place] [address] Dr. Ashlie Mckeon (RBC) [Mass/Vol]31.8 g/mYBpnizr12.9-35.2The [facility] CenterComment on above:Performed By: #### CBC #### [facility] [address] [place] [address] Dr. Ashlie MckeonV (RBC) [Entitic vol]89.8 pLNxctpo52.0-99.0The [facility] CenterComment on above:Performed By: #### CBC #### [facility] [address] [place] [address] Dr. Ashlie Killian #1.0 103/ulCritically high0.3-0.8The [facility] Comment on above:Performed By: #### CBC #### [facility] [address] [place] [address] Dr. Ashlie Palominoocytes/100 WBC (Bld)10.6 %Normal1.7-12.0[facility] Comment on above:Performed By: #### CBC #### [facility] [address] [place] [address] Dr. Ashlie Olsen #5.3 103/ulNormal1.4-6.5The [facility] CenterComment on above:Performed By: #### CBC #### [facility] [address] [place] [address] Dr. Ashlie Steinutrophils/100 WBC (Bld)56.8 %Imlbzj20.0-75.0The [facility] CenterComment on above:Performed By: #### CBC #### [facility] [address] [place] [address] Dr. Ashlie Lantigualet mean volume (Bld) [Entitic vol]12.5 fLNormal9.5-13.5The [facility] CenterComment on above:Performed By: #### CBC #### [facility] [address] [place] [address] Dr. Ashlie HillsPLT109 103/ulCritically kmp436-747Mnu [facility] CenterComment on above:Performed By: #### CBC #### [facility] [address] [place] [address] Dr. Ashlie HillsRBC5.47 106/ulCritically high4.20-5.40The [facility] Comment on above:Performed By: #### CBC #### [facility] [address] [place] [address] Dr. Ashlie HillsWBC9.4 103/ulNormal4.0-11.0The [facility] CenterComment on above: Performed By: #### CBC #### [facility] [address] [place] [address] Dr. Ashlie LlanosF 14(COMP METB)on [id number] [Mass/Vol]2.9 g/dL Critically low3.4-5.0The [facility] CenterComment on above:Performed By: #### CBC #### [facility] [address] [place] [address] Dr. Ashlie HillsAlbumin/Globulin [Mass ratio]0.6 {ratio}NormalThe [facility] CenterComment on above:Performed By: #### CBC #### [facility] [address] [place] [address] Dr. Ashlie Gonzalez [Catalytic activity/Vol]64 U/CNzdmul97-683Kxs [facility] CenterComment on above:Performed By: #### CBC #### [facility] [address] [place] [address] Dr. Ashlie Chambers [Catalytic activity/Vol]16 U/UGhoqde68-04Yny [facility] CenterComment on above:Performed By: #### CBC #### [facility] [address] [place] [address] Dr. Ashlie Arce gap [Moles/Vol]9.6 mmol/LNormalThe [facility] CenterComment on above:Performed By: #### CBC #### [facility] [address] [place] [address] Dr. Ashlie Tiwari [Catalytic activity/Vol]16 U/LEizgln30-37Tub [facility] CenterComment on above:Performed By: #### CBC #### [facility] [address] [place] [address] Dr. Ashlie HillsBilirubin [Mass/Vol]0.5 mg/dLNormal0.2-1.0The [facility] Comment on above:Performed By: #### CBC #### [facility] [address] [place] [address] Dr. Ashlie HillsCalcium [Mass/Vol]8.7 mg/dLNormal8.5-10.1[facility] Comment on above:Performed By: #### CBC #### [facility] [address] [place] [address] Dr. Ashlie HillsChloride [Moles/Vol]103 mmol/UImtmbb45-674Dvn [facility] Comment on above:Performed By: #### CBC #### [facility] [address] [place] [address] Dr. Ashlie HillsCO2 [Moles/Vol]30.7 mmol/SAzonct91.0-32.0[facility] Comment on above:Performed By: #### CBC #### [facility] [address] [place] [address] Dr. Ashlie HillsCreatinine [Mass/Vol]0.96 mg/dLNormal0.55-1.02The [facility] CenterComment on above:Performed By: #### CBC #### [facility] [address] [place] [address] Dr. Ashlie GrahamGFR-AF MARTINIQUAIS>60Normal>=60The [facility] CenterComment on above:Performed By: #### CBC #### [facility] [address] [place] [address] Dr. Ashlie Delaney-NON AF MARTINIQUAIS>60Normal>=60The [facility] CenterComment on above:Performed By: #### CBC #### [facility] [address] [place] [address] Dr. Ashlie HillsGlobulin (S) [Mass/Vol]4.7 g/dLNormalThe [facility] CenterComment on above:Performed By: #### CBC #### [facility] [address] [place] [address] Dr. Ashlie HillsGlucose [Mass/Vol]170 mg/dLCritically nrtb29-051Pcu [facility] CenterComment on above:Performed By: #### CBC #### [facility] [address] [address] [address] Ashlie HillsPotassium [Moles/Vol]4.3 mmol/LNormal3.5-5.1The [facility] Comment on above:Performed By: #### CBC #### [facility] [address] [address] [address] Ashlie HillsProtein [Mass/Vol]7.6 g/dLNormal6.4-8.2[facility] Comment on above:Performed By: #### CBC #### [facility] [address] [address] [address] Ashlie HillsSodium [Moles/Vol]139 mmol/ULbssdc515-848Qku [facility] Comment on above:Performed By: #### CBC #### [facility] [address] [address] [address] Ashlie HillsUrea nitrogen [Mass/Vol]16.0 mg/dLNormal7.0-18.0The [facility] CenterComment on above:Performed By: #### CBC #### [facility] [address] [address] [address] Ashlie Jones nitrogen/Creatinine [Mass ratio]16.7 mg/mgNormalThe [facility] CenterComment on above:Performed By: #### CBC #### [facility] [address] [address] [address] Ashlie KirbyMPTOMATIC COVID-19 ANTIGENon [id number] StatementSEE BELOW NormalThe [facility] CenterComment on above:Result Comment: This test has not been FDA [...] declaration is terminated or authorization is revoked sooner.Performed By: #### CVDAGS #### [facility] [address] [place] [address] Dr. Ashlie Finney-CoV-2 (COVID-19) RNA MADDY+probe Ql (Unsp spec)NegativeNormal NEGATIVEThe [facility] CenterComment on above:Performed By: #### CVDAGS #### [facility] [address] [place] [address] Dr. Ashlie Alvarado, [facility] SENSITIVITYon [id number] pg/mLNormal 4.0-51.3The [facility] CenterComment on above:Result Comment: CUT-OFF POINTS HAVE BEEN ESTABLISHED BASED ON THE FOURTH UNIVERSAL DEFINITIONS OF MYOCARDIAL INFARCTION. THE UPPER REFERENCE LIMIT (URL) OF TROPONIN, DEFINED THE 99TH PERCENTILE OF cTnI DISTRIBUTION IN A REFERENCE POPULATION, HAS BEEN CONFIRMED THE DECISION THRESHOLD FOR [place] DIAGNOSIS.Performed By: #### POCGLUC #### [facility] [address] [place] [address] Dr. Ashlie MarshallALBUMIN, RAND URon [id number] mg/dLCritically high <=30.0The [facility] CenterComment on above:Performed By: #### CVDAGS #### [facility] [address] [place] [address] Dr. Ashlie Vaughn RANDOM W/MICROSCOPICon [id number] SEENNormalNONE SEENPremier Health [facility] Hospital NorthComment on above:Performed By: #### CVDAGS #### [facility] [address] [place] [address] Dr. Ashlie HillsBilirubin Ql (U)NegativeNormalNEGATIVEThe [facility] Comment on above:Performed By: #### CVDAGS #### [facility] [address] [place] [address] Dr. Ashlie SchulztSEENAbnormalNONE SEENThe [facility] HospitalComment on above: Performed By: #### CVDAGS #### [facility] [address] [address] [address] Ashlie HillsClarity (U)CLEARNormalCLEARPremier Health [facility] Hospital NorthComuniversity of [facility] on above: Performed By: #### CVDAGS #### [facility] [address] [address] [address] Ashlie Roberts (U)YELLOWNormalYELLOWPremier Health [facility] Hospital NorthComment on above: Performed By: #### CVDAGS #### [facility] [address] [address] [address] Ashlie HillsCrystals LM Nom (Urine sed)NONE SEENNormalNONE SEENPremier Health [facility] NorthComuniversity of [facility] on above:Performed By: #### CVDAGS #### [facility] [address] [place] [address] Dr. Dailey ChangEpithelial cells LM Ql (Urine sed)MODERATEAbnormalNONE SEEN /RARE The [facility] CenterComuniversity of [facility] on above:Performed By: #### CVDAGS #### [facility] [address] [place] [address] Dr. Ashlie HillsGlucose Ql (U)NegativeNormalNEGATIVEPrem[facility] NorthComun[facility] of [facility] on above:Performed By: #### CVDAGS #### [facility] [address] [place] [address] Dr. Ashlie HillsHemoglobin Ql (U)TRACE-INTACTAbnormalNEGATIVEPrem[facility] NorthComun[facility] on above:Performed By: #### CVDAGS #### [facility] [address] [place] [address] Dr. Ashlie HillsKetones Ql (U)NegativeNormalNEGATIVEPrem[facility] Health [facility] NorthComun[facility] on above:Performed By: #### CVDAGS #### [facility] [address] [place] [address] Dr. Ashlie HillsLEUKOCYTESNegativeNormalNEGATIVEPrem[facility] NorthComun[facility] on above:Performed By: #### CVDAGS #### [facility] [address] [place] [address] Dr. Ashlie McphersonUSRODRIGUEZE SEENNormalNONE SEENPremier Health [facility] Hospital NorthComment on above:Performed By: #### CVDAGS #### [facility] [address] [place] [address] Dr. Ashlie Soares Ql (U)NegativeNormalNEGATIVEThe [facility] CenterComment on above:Performed By: #### CVDAGS #### [facility] [address] [place] [address] Dr. Ashlie HillspH (U)5.0 [pH]Normal5-9The [facility] CenterComment on above: Performed By: #### CVDAGS #### [facility] [address] [place] [address] Dr. Ashlie PruettBgxbuZNN9-2Endphq6-3Qiw [facility] CenterComment on above:Performed By: #### CVDAGS #### [facility] [address] [place] [address] Dr. Ashlie HillsSPEC GRAVITY1.804Fyjguzkd2.005-<=1.025The [facility] Comment on above:Performed By: #### CVDAGS #### [facility] [address] [place] [address] Dr. Ashlie Vaughn RISMFAO313 mg/dlAbnormalNEGATIVE/ TRACEThe [facility] Comment on above:Performed By: #### CVDAGS #### [facility] [address] [place] [address] Dr. Ashlie Metzbilkrystynagen Qn (U)0.2 {Little'U}/dLNormal0.2 - 1.0The [facility] CenterComment on above:Performed By: #### CVDAGS #### [facility] [address] [place] [address] Dr. Ashlie HillsWBCNONE SEENNormalNONE SEENPremier Health [facility] Hospital NorthComment on above: Performed By: #### CVDAGS #### [facility] [address] [place] [address] Dr. Ashlie Chinchilla AUTO DIFFon [id number] #0.0 103/ulNormal0.0-0.1The [facility] [facility]ike Medical CenterComment on above:Performed By: #### CBC #### [facility] [address] [place] [address] Dr. Ashlie HillsBasophils/100 WBC (Bld)0.3 %Normal0.2-2.0[facility] Comment on above:Performed By: #### CBC #### [facility] [address] [place] [address] Dr. Ashlie Mcintosh #0.4 103/ulNormal0.0-0.7The [facility] CenterComment on above: Performed By: #### CBC #### [facility] [address] [place] [address] Dr. Ashlie Grahamosinophils/100 WBC (Bld)3.0 %Normal0.9-7.0[facility] Comment on above:Performed By: #### CBC #### [facility] [address] [place] [address] Dr. Ashlie Grahamrythrocyte distribution width (RBC) [Ratio]15.3 %Critically high 11.0-15.0[facility] NorthComment on above:Performed By: #### CBC #### [facility] [address] [place] [address] Dr. Ashlie HillsHematocrit (Bld) [Volume fraction]52.4 %Critically high36.0-48.0 The [facility] CenterComment on above:Performed By: #### CBC #### [facility] [address] [place] [address] Dr. Ashlie HillsHemoglobin (Bld) [Mass/Vol]16.8 g/dLCritically high12.0-16.0[facility] NorthComment on above:Performed By: #### CBC #### [facility] [address] [place] [address] Dr. Ashlie Hunter #0.04 10e3/ulCritically high0.00-0.03The [facility] Comment on above:Performed By: #### CBC #### [facility] [address] [place] [address] Dr. Ashlie Hunter %0.3 %Normal0.0-0.5The [facility] CenterComment on above: Performed By: #### CBC #### [facility] [address] [place] [address] Dr. Ashlie Swenson #4.5 103/ulCritically high1.2-3.8The [facility] Comment on above:Performed By: #### CBC #### [facility] [address] [place] [address] Dr. Ashlie Dsouzahocytes/100 WBC (Bld)33.2 %Bvgruf56.5-60.0The [facility] CenterComment on above:Performed By: #### CBC #### [facility] [address] [place] [address] Dr. Ashlie GhoshUAL DIFF REQNONormalThe [facility] CenterComment on above: Performed By: #### CBC #### [facility] [address] [place] [address] Dr. Ashlie Granger (RBC) [Entitic mass]28.0 pbCuuvqm39.7-34.0The [facility] CenterComment on above:Performed By: #### CBC #### [facility] [address] [place] [address] Dr. Ashlie Mckeon (RBC) [Mass/Vol]32.1 g/oSKtdztz56.9-35.2The [facility] CenterComment on above:Performed By: #### CBC #### [facility] [address] [place] [address] Dr. Ashlie Mckeon (RBC) [Entitic vol]87.3 rDGjzayj98.0-99.0The [facility] CenterComment on above:Performed By: #### CBC #### [facility] [address] [place] [address] Dr. Ashlie Killian #0.8 103/ulNormal0.3-0.8The [facility] CenterComment on above:Performed By: #### CBC #### [facility] [address] [place] [address] Dr. Ashlie Palominoocytes/100 WBC (Bld)5.7 %Normal1.7-12.0[facility] Comment on above:Performed By: #### CBC #### [facility] [address] [place] [address] Dr. Ashlie Olsen #7.8 103/ulCritically high1.4-6.5ThOhioHealth [facility] Comment on above:Performed By: #### CBC #### [facility] [address] [address] [address] Ashlie Steinutrophils/100 WBC (Bld)57.5 %Jhcmwk02.0-75.0The [facility] CenterComment on above:Performed By: #### CBC #### [facility] [address] [place] [address] Dr. Ashlie HillsPlatelet mean volume (Bld) [Entitic vol]12.0 fLNormal9.5-13.5The [facility] CenterComment on above:Performed By: #### CBC #### [facility] [address] [place] [address] Dr. Ashlie HillsPLT152 103/jbHokqez597-362LxnPremier Health [facility] Hospital NorthComment on above: Performed By: #### CBC #### [facility] [address] [place] [address] Dr. Ashlie HillsRBC6.00 106/ulCritically high4.20-5.40[facility] Comment on above:Performed By: #### CBC #### [facility] [address] [place] [address] Dr. Ashlie HillsWBC13.6 103/ulCritically high4.0-11.0[facility] NorthComment on above:Performed By: #### CBC #### [facility] [address] [place] [address] Dr. Ashlie HillsLIPID PROFILEon [id number]-HDL RATIO NORMSEE BELOWNoRegency Hospital CompanyComment on above:Result Comment: 3.3 - 4.4 LOW RISK 4.4 - 7.1 AVERAGE RISK 7.1 - 11.0 MODERATE RISK >11.0 HIGH RISKPerformed By: #### CBC #### [facility] [address] [address] [address] Ashlie HillsCholesterol [Mass/Vol]139 mg/dLNormal<=200[facility] Comment on above:Performed By: #### CBC #### [facility] [address] [address] [address] Ashlie HillsCholesterol in HDL [Mass/Vol]35 mg/dLCritically yma93-67HgyPremier Health [facility] Hospital NorthComment on above:Performed By: #### CBC #### [facility] [address] [address] [address] Ashlie HillsCholesterol in LDL [Mass/Vol]67.4 mg/dLHolzer Medical Center – JacksonComment on above:Performed By: #### CBC #### [facility] [address] [place] [address] Dr. Ashlie Lopezesteroralia.total/Cholesterol in HDL [Mass ratio]4.0 {ratio} NormalPremier Health Miami Valley Hospital NorthComment on above:Performed By: #### CBC #### [facility] [address] [address] [address] Ashlie Potts NORMAL> or = 60 mg/dl - LOW CARDIOVASCULAR RISK <40 mg/dl - HIGH CARDIOVASCULAR RISKHolzer Medical Center – JacksonComment on above:Performed By: #### CBC #### [facility] [address] [address] [address] Ashlie HillsLDL CALC NORMALSEE BELOWHolzer Medical Center – JacksonComment on above:Result Comment: <100 mg/dl OPTIMAL 100 - 129 mg/dl NEAR OR ABOVE OPTIMAL 130 - 159 mg/dl BORDERLINE HIGH 160 - 189 mg/dl HIGH >190 mg/dl VERY HIGH Performed By: #### CBC #### [facility] [address] [place] [address] Dr. Ashlie HillsTriglyceride [Mass/Vol]183 mg/dLCritically high<=150The [facility] CenterComment on above:Performed By: #### CBC #### [facility] [address] [address] [address] Ashlie HillsVLDL CALC36.6 mg/dLNoRegency Hospital CompanyComment on above: Performed By: #### CBC #### [facility] [address] [address] [address] Ashlie HillsMG MAMM SCREEN 3D ALEX CADon [id number] MAMM SCREEN 3D ALEX CAD Patient: MITZI MACIAS Exam Date: 11/22/2022 : 1970 Gender:F Ordering : SAYDA MCKAYLA [employer] Admission #: [id number] Family : Order #: [id number] CLICK HERE TO VIEW EXAM RADIOLOGY REPORT [...] unknown cancer at age 75. LOCATION: [facility] BREAST COMPOSITION: Almost entirely fatty. [...] by: Patricia Veloz M.D. on 11/22/2022 at 12:09NoRegency Hospital CompanyPROF 14(COMP METB)on [id number] [Mass/Vol]3.0 g/dLCritically low 3.4-5.0The [facility] CenterComment on above:Performed By: #### CBC #### [facility] [address] [address] [address] Ashlie HillsAlbumin/Globulin [Mass ratio]0.6 {ratio}NormalThe [facility] Medical CenterComment on above:Performed By: #### CBC #### [facility] [address] [address] [address] Ashlie MoralesP [Catalytic activity/Vol]68 U/AEhmtaj06-894Maw [facility] CenterComment on above:Performed By: #### CBC #### [facility] [address] [address] [address] Ashlie MoralesT [Catalytic activity/Vol]14 U/UDwgked57-30Xiu [facility] CenterComment on above:Performed By: #### CBC #### [facility] [address] [place] [address] Dr. Ashlie Hassanon gap [Moles/Vol]12.1 mmol/LNormalThe [facility] Comment on above:Performed By: #### CBC #### [facility] [address] [place] [address] Dr. Ashlie HillsAST [Catalytic activity/Vol]9 U/LCritically zeg10-80Zci [facility] CenterComment on above:Performed By: #### CBC #### [facility] [address] [place] [address] Dr. Ashlie HillsBilirubin [Mass/Vol]0.4 mg/dLNormal0.2-1.0The [facility] Comment on above:Performed By: #### CBC #### [facility] [address] [place] [address] Dr. Ashlie HillsCalcium [Mass/Vol]9.0 mg/dLNormal8.5-10.1The [facility] Comment on above:Performed By: #### CBC #### [facility] [address] [place] [address] Dr. Ashlie HillsChloride [Moles/Vol]105 mmol/YBfohrk25-026Npj [facility] Comment on above:Performed By: #### CBC #### [facility] [address] [address] [address] Ashlie HillsCO2 [Moles/Vol]30.7 mmol/TQnnzpu44.0-32.0The [facility] Comment on above:Performed By: #### CBC #### [facility] [address] [place] [address] Dr. Ashlie HillsCreatinine [Mass/Vol]0.77 mg/dLNormal0.55-1.02The [facility] CenterComment on above:Performed By: #### CBC #### [facility] [address] [place] [address] Dr. Dailey ChangEGFR-AF MARTINIQUAIS>60Normal>=60The [facility] CenterComment on above:Performed By: #### CBC #### [facility] [address] [place] [address] Dr. Ashlie GrahamGFR-NON AF MARTINIQUAIS>60Normal>=60The [facility] CenterComment on above:Performed By: #### CBC #### [facility] [address] [place] [address] Dr. Ashlie HillsGlobulin (S) [Mass/Vol]4.8 g/dLNormalThe [facility] CenterComment on above:Performed By: #### CBC #### [facility] [address] [place] [address] Dr. Ashlie HillsGlucose [Mass/Vol]162 mg/dLCritically tbme32-997Slt [facility] CenterComment on above:Performed By: #### CBC #### [facility] [address] [place] [address] Dr. Ashlie HillsPotassium [Moles/Vol]3.8 mmol/LNormal3.5-5.1The [facility] Comment on above:Performed By: #### CBC #### [facility] [address] [place] [address] Dr. Ashlie HillsProtein [Mass/Vol]7.8 g/dLNormal6.4-8.2The [facility] Comment on above:Performed By: #### CBC #### [facility] [address] [place] [address] Dr. Ashlie Jimenezdium [Moles/Vol]144 mmol/KXhoigo110-599Bqm [facility] Comment on above:Performed By: #### CBC #### [facility] [address] [place] [address] Dr. Ashlie Jones nitrogen [Mass/Vol]24.0 mg/dLCritically high7.0-18.0The [facility] CenterComment on above:Performed By: #### CBC #### [facility] [address] [place] [address] Dr. Ashlie Jones nitrogen/Creatinine [Mass ratio]31.2 mg/mgNormalThe [facility] CenterComment on above:Performed By: #### CBC #### [facility] [address] [place] [address] Dr. Ashlie Chinchilla AUTO DIFFon [id number] #0.1 103/ulNormal0.0-0.1The [facility] CenterComment on above:Performed By: #### CBC #### [facility] [address] [place] [address] Dr. Ashlie HillsBasophils/100 WBC (Bld)0.6 %Normal0.2-2.0[facility] Comment on above:Performed By: #### CBC #### [facility] [address] [place] [address] Dr. Ashlie Mcintosh #0.3 103/ulNormal0.0-0.7The [facility] CenterComment on above: Performed By: #### CBC #### [facility] [address] [place] [address] Dr. Ashlie Grahamosinophils/100 WBC (Bld)2.1 %Normal0.9-7.0The [facility] Comment on above:Performed By: #### CBC #### [facility] [address] [place] [address] Dr. Ashlie Grahamrythrocyte distribution width (RBC) [Ratio]15.9 %Critically high 11.0-15.0The [facility] CenterComment on above:Performed By: #### CBC #### [facility] [address] [address] [address] Ashlie HillsHematocrit (Bld) [Volume fraction]51.8 %Critically high36.0-48.0 The [facility] CenterComment on above:Performed By: #### CBC #### [facility] [address] [place] [address] Dr. Ashlie HillsHemoglobin (Bld) [Mass/Vol]16.6 g/dLCritically high12.0-16.0The [facility]erva HospitalComment on above:Performed By: #### CBC #### [facility] [address] [place] [address] Dr. Ashlie HillsIG #0.03 10e3/ulNormal0.00-0.03The [facility] CenterComment on above:Performed By: #### CBC #### [facility] [address] [place] [address] Dr. Ashlie Hunter %0.2 %Normal0.0-0.5The [facility] CenterComment on above: Performed By: #### CBC #### [facility] [address] [place] [address] Dr. Ashlie Swenson #3.9 103/ulCritically high1.2-3.8The [facility] Comment on above:Performed By: #### CBC #### [facility] [address] [place] [address] Dr. Ashlie Jademphocytes/100 WBC (Bld)31.7 %Tveais19.5-60.0The [facility] CenterComment on above:Performed By: #### CBC #### [facility] [address] [place] [address] Dr. Ashlie GhoshUAL DIFF REQNONormalThe [facility] CenterComment on above: Performed By: #### CBC #### [facility] [address] [place] [address] Dr. Ashlie Granger (RBC) [Entitic mass]27.9 svAmrhiu07.7-34.0The [facility] CenterComment on above:Performed By: #### CBC #### [facility] [address] [address] [address] Ashlie Mckeon (RBC) [Mass/Vol]32.0 g/eMCxabqz01.9-35.2The [facility] CenterComment on above:Performed By: #### CBC #### [facility] [address] [place] [address] Dr. Ashlie MckeonV (RBC) [Entitic vol]87.1 gZZtusuh67.0-99.0The [facility] HospitalComment on above:Performed By: #### CBC #### [facility] [address] [place] [address] Dr. Ashlie Killian #0.7 103/ulNormal0.3-0.8The [facility] CenterComment on above:Performed By: #### CBC #### [facility] [address] [place] [address] Dr. Ashlie Palominoocytes/100 WBC (Bld)5.8 %Normal1.7-12.0[facility] Comment on above:Performed By: #### CBC #### [facility] [address] [place] [address] Dr. Ashlie Olsen #7.3 103/ulCritically high1.4-6.5The [facility] Comment on above:Performed By: #### CBC #### [facility] [address] [place] [address] Dr. Ashlie Steinutrophils/100 WBC (Bld)59.6 %Xgmpir54.0-75.0The [facility] CenterComment on above:Performed By: #### CBC #### [facility] [address] [place] [address] Dr. Ashlie Lantigualet mean volume (Bld) [Entitic vol]11.7 fLNormal9.5-13.5The [facility] CenterComment on above:Performed By: #### CBC #### [facility] [address] [place] [address] Dr. Ashlie HillsPLT117 103/ulCritically gts590-491Wzz [facility] CenterComment on above:Performed By: #### CBC #### [facility] [address] [place], [place] [address] Dr. Ashlie HillsRBC5.95 106/ulCritically high4.20-5.40The [facility] Comment on above:Performed By: #### CBC #### [facility] [address] [place], [place] [address] Dr. Ashlie HillsWBC12.3 103/ulCritically high4.0-11.0The [facility] CenterComment on above:Performed By: #### CBC #### [facility] [address] [place], [place] [address] Dr. Ashlie HillsCT ABD/PELV W CONon [id number] ABD/PELV W CONEXAM: CT ABD/PELV W CON HISTORY: GENERALIZED ABDOMINAL [...] Electronically authenticated by: RICCO PICKARD Date: 2022-10-05 13:13[facility] URINE PROFILEon [id number] Ql (U)NegativeNormal NEGATIVEThe [facility] CenterComment on above:Performed By: #### POCGLUC #### [facility] [address] [address] [address] Ashlie Leungarity (U)CLEARNormalCLEARPremier Health Miami Valley Hospital NorthComment on above: Performed By: #### POCGLUC #### [facility] [address] [address] [address] Ashlie Prescottlor (U)YELLOWNormalYELLOWPremier Health [facility] Hospital NorthComment on above: Performed By: #### POCGLUC #### [facility] [address] [address] [address] Ashlie Clayton micrscopic examination will be performed if indicated. NormalThe [facility] CenterComment on above:Performed By: #### POCGLUC #### [facility] [address] [address] [address] Ashlie Rutledgeose Ql (U)NegativeNormalNEGATIVEPremier Health [facility] Hospital NorthComment on above:Performed By: #### POCGLUC #### [facility] [address] [address] [address] Ashlie HillsHemoglobin Ql (U)NegativeNormalNEGATIVECleveland Clinic [facility]on Hospital on above:Performed By: #### POCGLUC #### [facility] [address] [address] [address] Ashlie HillsKetones Ql (U)NegativeNormalNEGATIVEPremier Health [facility] Hospital NorthComment on above:Performed By: #### POCGLUC #### [facility] [address] [address] [address] Ashlie HillsLEUKOCYTESNegativeNormalNEGATIVEPremier Health [facility] Hospital NorthComment on above:Performed By: #### POCGLUC #### [facility] [address] [address] [address] Ashlie HillsNitrite Ql (U)NegativeNormalNEGATIVEPremier Health [facility] Hospital NorthComment on above:Performed By: #### POCGLUC #### [facility] [address] [address] [address] Ashlie HillspH (U)6.0 [pH]Normal5-9[facility] NorthComment on above: Performed By: #### POCGLUC #### [facility] [address] [address] [address] Ashlie HillsProtein (U) [Mass/Vol]100 mg/dLAbnormalNEGATIVE/ TRACEThe [facility] CenterComment on above:Performed By: #### POCGLUC #### [facility] [address] [place] [address] Dr. Ashlie HillsSPEC GRAVITY1.656Wquveq9.005-<=1.025The [facility] CenterComment on above:Performed By: #### POCGLUC #### [facility] [address] [place] [address] Dr. Ashlie Sullivan MICRO INDINDICATEDNormalThOhioHealth Marion General HospitalComment on above: Performed By: #### POCGLUC #### [facility] [address] [place] [address] Dr. Ashlie HillsUrobilinogen Qn (U)1.0 {Little'U}/dLNormal0.2 - 1.0The [facility] CenterComment on above:Performed By: #### POCGLUC #### [facility] [address] [place] [address] Dr. Ashlie HillsLIPASEon [id number] [Catalytic activity/Vol]1771.0 U/L Critically high73.0-393.0The [facility] CenterComment on above:Performed By: #### CBC #### [facility] [address] [place] [address] Dr. Ashlie CrossG HCG QUALon [id number], QUALNegativeNormalNEGATIVE The [facility] CenterComment on above:Performed By: #### POCGLUC #### [facility] [address] [place] [address] Dr. Ashlie HillsPROF 14(COMP METB)on [id number] [Mass/Vol]3.2 g/dL Critically low3.4-5.0The [facility] CenterComment on above:Performed By: #### CBC #### [facility] [address] [place] [address] Dr. Ashlie HillsAlbumin/Globulin [Mass ratio]0.7 {ratio}NormalPremier Health Miami [facility] Hospital NorthComment on above:Performed By: #### CBC #### [facility] [address] [address] [address] Ashlie Gonzalez [Catalytic activity/Vol]70 U/IJdemoz47-174Gzo [facility] CenterComment on above:Performed By: #### CBC #### [facility] [address] [address] [address] Ashlie Chambers [Catalytic activity/Vol]11 U/LCritically kve33-08Naf [facility] CenterComment on above:Performed By: #### CBC #### [facility] [address] [address] [address] Ashlie Hassanon gap [Moles/Vol]10.3 mmol/LNormalPrem[facility] Comment on above:Performed By: #### CBC #### [facility] [address] [address] [address] Ashlie HillsAST [Catalytic activity/Vol]11 U/LCritically tva99-17Ziy [facility] CenterComment on above:Performed By: #### CBC #### [facility] [address] [address] [address] Ashlie HillsBilirubin [Mass/Vol]0.9 mg/dLNormal0.2-1.0The [facility] Comment on above:Performed By: #### CBC #### [facility] [address] [address] [address] Ashlie HillsCalcium [Mass/Vol]9.3 mg/dLNormal8.5-10.1[facility] Comment on above:Performed By: #### CBC #### [facility] [address] [address] [address] Ashlie HillsChloride [Moles/Vol]105 mmol/LHgsbqm65-691Hug [facility] Comment on above:Performed By: #### CBC #### [facility] [address] [address] [address] Ashlie HillsCO2 [Moles/Vol]30.6 mmol/ENuoici91.0-32.0The [facility] Comment on above:Performed By: #### CBC #### [facility] [address] [address] [address] Ashlie HillsCreatinine [Mass/Vol]0.62 mg/dLNormal0.55-1.02The [facility] CenterComment on above:Performed By: #### CBC #### [facility] [address] [address] [address] Ashlie GrahamGFR-AF MARTINIQUAIS>60Normal>=60The [facility] CenterComment on above:Performed By: #### CBC #### [facility] [address] [address] [address] Ashlie GrahamGFR-NON AF MARTINIQUAIS>60Normal>=60The [facility] CenterComment on above:Performed By: #### CBC #### [facility] [address] [address] [address] Ashlie HillsGlobulin (S) [Mass/Vol]4.6 g/dLNormalThe [facility] CenterComment on above:Performed By: #### CBC #### [facility] [address] [address] [address] Ashlie HillsGlucose [Mass/Vol]85 mg/mSTtzgfp79-240HddPremier Health [facility] Comment on above:Performed By: #### CBC #### [facility] [address] [address] [address] Ashlie HillsPotassium [Moles/Vol]3.9 mmol/LNormal3.5-5.1The [facility] Comment on above:Performed By: #### CBC #### [facility] [address] [address] [address] Ashlie HillsProtein [Mass/Vol]7.8 g/dLNormal6.4-8.2The [facility] Comment on above:Performed By: #### CBC #### [facility] [address] [address] [address] Ashlie HillsSodium [Moles/Vol]142 mmol/TBbbuvl248-026ZpjPremier Health [facility] Comment on above:Performed By: #### CBC #### [facility] [address] [address] [address] Ashlie Jones nitrogen [Mass/Vol]12.0 mg/dLNormal7.0-18.0The [facility] on above:Performed By: #### CBC #### [facility] [address] [address] [address] Ashlie Jones nitrogen/Creatinine [Mass ratio]19.4 mg/mgNoRegency Hospital CompanyComment on above:Performed By: #### CBC #### [facility] [address] [address] [address] Ashlie Recinos MICROSCOPIC ONLYon [id number]V SEEN [facility] NorthComuniversity of michigan health on above:Performed By: #### POCGLUC #### [facility] [address] [address] [address] Ashlie Cortez identified Cx Nom (U)NOT INDICATEDNoMercy Health St. [facility] on above:Performed By: #### POCGLUC #### [facility] Laboratory [address] [address] [address] Ashlie HillsCASTNONE SEENNormalNONE SEENSycamore Medical Center on above:Performed By: #### POCGLUC #### [facility] Laboratory [address] [address] [address] Ashlie Boyerystals LM Nom (Urine sed)NONE SEENNormalNONE SEENSycamore Medical Center on above:Performed By: #### POCGLUC #### [facility] Laboratory [address] [address] [address] Ashlie Camarathelial cells LM Ql (Urine sed)MODERATEAbnormalNONE SEEN /RARE [facility] on above:Performed By: #### POCGLUC #### [facility] Laboratory [address] [address] [address] Ashlie SuarezCOUSNONE SEENNoanson community hospitalNONE SEENSycamore Medical Center on above:Performed By: #### POCGLUC #### [facility] Laboratory [address] [address] [address] Ashlie HillsRaycuIPE2-2Qdrrzz3-1CetSycamore Medical Center on above:Performed By: #### POCGLUC #### [facility] Laboratory [address] [place] [address] Dr. Ashlie HillsWBC0-2AbnormalNONE SEENSycamore Medical Center on above: Performed By: #### POCGLUC #### [facility] Laboratory [address] [place] [address] Dr. Ashlie HillsCovid-19 PCR ([facility]WOR[facility])on [id number]-CoV-2 (COVID-19) RNA MADDY+probe Ql (Unsp spec)DetectedAbnormalNOT DETECTEDThe [facility] on above:Result Comment: This test is not yet approved or cleared by the [place] FDA. When there are no FDA-approved or cleared tests available, and other criteria are met, FDA can make tests available under an emergency access mechanism called an Emergency Use Authorization (EUA). The EUA for this test is supported by the [place] of Health and Human Service's declaration that circumstances exist to justify the emergency use of in vitro diagnostics for the detection and/or diagnosis of the virusthat causes COVID-19. This EUA will remain in effect for the duration of the COVID-19 declaration justifying emergency of IVDs, unless it is terminated or revoked by the FDA (after which the test mayno longer be used).Performed By: #### CVDAGS #### [facility] Laboratory [address] [place] [address] Dr. Ashlie HillsINFLUENZA A AND B AGon [id number] [facility] on above:Result Comment: Negative for Flu A protein angiten. Infection due to Flu A cannot be ruled out. FluA angiten in the sample may be below the detection limit of the test.Performed By: #### INFLUAB #### [facility] Laboratory [address] [place] [address] Dr. Ashlie HillsINFLUBNEGHSEE [facility] on above: Result Comment: Negative for Flu B protein antigen. Infection due to Flu B cannot be ruled out. FluB antigen in the sample may be below the detection limit of the test.Performed By: #### INFLUAB #### [facility] Laboratory [address] [place] [address] Dr. Ashlie Centeno AGNegativeNormalNEGATIVE SEE COMMENTThe [facility] CenterComment on above:Performed By: #### INFLUAB #### [facility] Laboratory [address] [address] [address] Ashlie Shaffer AGNegativeNormalNEGATIVE SEE COMMENTThe [facility] CenterComment on above:Performed By: #### INFLUAB #### [facility] Laboratory [address] [place] [address] Dr. Ashlie HillsCT ABD/PELV W CONon [id number] ABD/PELV W CONINDICATION: Disorder of adrenal gland EXAMINATION: CT ABDOMEN [...] dating back to at least 10/21/2018, unchanged. https://www.ncbi.nlm.nih.gov/pmc/articles/JOI3969068/ Electronically authenticated by: COLLIN HUERTAS Date: 2022-07-27 14:56NormLima Memorial HospitalCREATININEon 30-94-0382Qnnmohpeju [Mass/Vol]0.81 mg/dLNormal 0.55-1.02The [facility] CenterComment on above:Performed By: #### CBC #### [facility] Laboratory [address] [place] [address] Dr. Yilan ChangEGFR-AF MARTINIQUAIS>60Normal>=60The [facility] CenterComment on above:Performed By: #### CBC #### [facility] Laboratory [address] [place], [place] [address] Dr. Dailey ChangEGFR-NON AF MARTINIQUAIS>60Normal>=60The [facility] CenterComment on above:Performed By: #### CBC #### [facility] Laboratory [address] [place], [place] [address] Dr. Dailey ChangCT LOW EXT W CONT LTon [id number] LOW EXT W CONT LTEXAMINATION: CT LOW EXT W CONT LT HISTORY: [...] Electronically authenticated by: PATRICIA VELOZ Date: 2022-07-18 14:[address] [place], [place] [address]XR KNEE LT 1_2 Von [id number] KNEE LT 1_2 VEXAM: XR KNEE LT 1_2 V HISTORY: Left [...] Electronically authenticated by: HATTIE BAUTISTA Date: 2022-07-18 12:00[facility] JacksonCovid-[facility] PCR (CVDTB)on [id number]-CoV-2 (COVID-19) RNA MADDY+probe Ql (Unsp spec)Not detectedNormalNOT DETECTEDThe [facility] Comment on above:Result Comment: This test is not yet approved or cleared by the [place] FDA. When there are no FDA-approved or cleared tests available, and other criteria are met, FDA can make tests available under an emergency access mechanism called an Emergency Use Authorization (EUA). The EUA for this test is supported by the [place] of Health and Human Service's (HHS's) declaration that circumstances exist to justify the emergency use of in vitro diagnostics for the detection and/or diagnosis of the virus that causes COVID- 19. This EUA will remain in effect (meaning [...] of clinical signs and symptoms consistent with SARS-CoV-2.Performed By: #### CBC #### [facility] Laboratory [address] [place] [address] Dr. Ashlie MonteroNZA A AND B AGon [id number] [place] Medical CenterComment on above:Result Comment: Negative for Flu A protein angiten. Infection due to Flu A cannot be ruled out. FluA angiten in the sample may be below the detection limit of the test.Performed By: #### CBC #### [facility] Laboratory [address] [place] [address] Dr. Ashlie HillsINFLUBNEGSouthern [place] Medical CenterComuniversity of [place] health on above: Result Comment: Negative for Flu B protein antigen. Infection due to Flu B cannot be ruled out. FluB antigen in the sample may be below the detection limit of the test.Performed By: #### CBC #### [facility] Laboratory [address] [place] [address] Dr. Ashlie Centeno AGNegativeNormalNEGATIVE SEE COMMENTThe [facility] on above:Performed By: #### CBC #### [facility] Laboratory [address] [place] [address] Dr. Ashlie Shaffer AGNegativeNormalNEGATIVE SEE COMMENTThe [facility] on above:Performed By: #### CBC #### [facility] Laboratory [address] [place] [address] Dr. Ashlie HillsPOINT OF CARE GLUCOSEon 36-26-7357Qxqglmi [Mass/Vol]108 mg/dL Critically mzfy88-934Mcz [facility] CenterComuniversity of [facility] health on above:Performed By: #### CBC #### [facility] Laboratory [address] [place] [address] Dr. Ashlie HillsANA by IFAon 71-83-5970Jqrqqrdnjfz Antibodies, IFANegativeNormal The [facility] CenterComuniversity of [facility] on above:Result Comment: Negative <1:80 Borderline 1:80 Positive >1:80 ICAP nomenclature: AC-0 For more information about Hep-2 cell patterns use ANApatterns.org, the official website for the International Consensus on Antinuclear Antibody (RAGHU) Patterns (ICAP).Performed By: #### ANAIFA #### [facility] Laboratory [address] [place] [address] Dr. Ashlie HillsIMMUNOFIXATION (TREVON), URINEon [id number] Interpretation:U CommentNormalThe [facility] on above:Result Comment: No monoclonality detected.Performed By: #### CBC #### [facility] Laboratory [address] [place] [address] Dr. Ashlie HillsIMMUNOFIXATION(TREVON),PROTEIN ELEC(PE),FREon [id number] [Mass/Vol]3.0 g/dLNormal2.9-4.4The [facility] on above:Performed By: #### INFLUAB #### [facility] Laboratory [address] [place] [address] Dr. Ashlie HillsAlbumin/Globulin [Mass ratio]0.8 {ratio}Normal0.7-1.7The [facility] CenterComment on above:Performed By: #### INFLUAB #### [facility] Laboratory [address] [place] [address] Dr. Ashlie HillsZvwzwQgmfz-4-Jeowlrqk3.3 g/dLNormal0.0-0.4The [facility] CenterComment on above:Performed By: #### INFLUAB #### [facility] Laboratory [address] [place] [address] Dr. Ashlie HillsOssavYvdhw-1-Jfkupncg0.0 g/dLNormal0.4-1.0The [facility] CenterComment on above:Performed By: #### INFLUAB #### [facility] Laboratory [address] [place] [address] Dr. Ashlie HillsBeta Globulin1.8 g/dLCritically high0.7-1.3TAdena Regional Medical Center Comment on above:Performed By: #### INFLUAB #### [facility] Laboratory [address] [place] [address] Dr. Ashlie Skelton Dubach Lt Chains,S45.2 mg/LCritically high3.3-19.4The [facility] CenterComment on above:Performed By: #### INFLUAB #### [facility] Laboratory [address] [place] [address] Dr. Ashlie Skelton Lambda Lt Chains,S40.3 mg/LCritically high5.7-26.3The [facility] CenterComment on above:Performed By: #### INFLUAB #### [facility] Laboratory [address] [place] [address] Dr. Ashlie HillsGamma Globulin0.8 g/dLNormal0.4-1.8The [facility] CenterComment on above:Performed By: #### INFLUAB #### [facility] Laboratory [address] [place] [address] Dr. Ashlie HillsGlobulin (S) [Mass/Vol]3.9 g/dLNormal2.2-3.9The [facility] Comment on above:Performed By: #### INFLUAB #### [facility] Laboratory [address] [place] [address] Dr. Ashlie HillsImmunofixation Result, SerumCommentNoRegency Hospital Company Comment on above:Result Comment: No monoclonality detected.Performed By: #### INFLUAB #### [facility] Laboratory [address] [place] [address] Dr. Ashlie HillsImmunoglobulin A, Qn, Ediax082 mg/dLCritically ieun35-012Cwt [facility] CenterComment on above:Performed By: #### INFLUAB #### [facility] Laboratory [address] [place] [address] Dr. Ashlie HillsImmunoglobulin G, Qn, Pqnvq095 mg/vMLcyqna658-6134Tqe [facility] CenterComuniversity of [facility] health on above:Performed By: #### INFLUAB #### [facility] Laboratory [address] [place] [address] Dr. Ashlie HillsImmunoglobulin M, Qn, Serum39 mg/cAQybclk61-115Gpp [facility] CenterComment on above:Performed By: #### INFLUAB #### [facility] Laboratory [address] [place] [address] Dr. Ashlie HillsKappa/Lambda Ratio, S1.27Rmlkaf9.26-1.65[facility] Comment on above:Performed By: #### INFLUAB #### [facility] Laboratory [address] [place] [address] Dr. Ashlie HillsM-SpikeNot ObservedNormalNot ObservedThe [facility] CenterComment on above:Performed By: #### INFLUAB #### [facility] Laboratory [address] [place] [address] Dr. Ashlie Bradford.NormalThe [facility] CenterComment on above:Performed By: #### INFLUAB #### [facility] Laboratory [address] [place] [address] Dr. Ashlie Fletcher note:CommentBarberton Citizens Hospital on above: Result Comment: Protein electrophoresis scan will follow via computer, mail, or dip stand loader delivery.Performed By: #### INFLUAB #### [facility] Laboratory [address] [place] [address] Dr. Ashlie HillsProtein [Mass/Vol]6.9 g/dLNormal6.0-8.5The [facility] Comment on above:Performed By: #### INFLUAB #### [facility] Laboratory [address] [place] [address] Dr. Ashlie HillsC-PEPTIDE, SERUMon 13-27-4499Q-Peptide, Serum3.1 ng/mLNormal 1.1-4.4The [facility] CenterComment on above:Result Comment: C-Peptide reference interval is for fasting patients.Performed By: #### CPEPT #### [facility] Laboratory [address] [place] [address] Dr. Ashlie Sandoval B SURFACE ANTIGEN SCREENon 28-22-5492TSmJq ScreenNegative NormalNegativeThe [facility] CenterComment on above:Performed By: #### CBC #### [facility] Laboratory [address] [place] [address] Dr. Ashlie ReavesPATITIS C VIRUS AB W/ REFLEX QUANTon [id number] AB<0.1Normal 0.0-0.9The [facility] CenterComment on above:Performed By: #### INFLUAB #### [facility] Laboratory [address] [place] [address] Dr. Ashlie HillsInterpretation:CommentNormalThOhioHealth Marion General HospitalComment on above:Result Comment: Negative Not infected with HCV, unless recent infection is suspected or other evidence exists to indicate HCV infection.Performed By: #### INFLUAB #### [facility] Laboratory [address] [place] [address] Dr. Ashlie HillsMICROALBUMIN/ CREATININE RATIOon 50-90-8292Wdpjfuw, Pjydq163.4 ug/mLNormalNot Estab.The [facility] CenterComment on above:Performed By: #### CBC #### [facility] Laboratory [address] [place] [address] Dr. Ashlie HillsAlbumin/ Creatinine Tgjxp368 mg/g creatCritically high0-29The [facility] CenterComment on above:Result Comment: Normal: 0 - 29 Moderately increased: 30 - 300 Severely increased: >300Performed By: #### CBC #### [facility] Laboratory [address] [address] [address] Ashlie HillsCreatinine, Jmlgz779.9 mg/dLNormalNot Estab.[facility] Comment on above:Performed By: #### CBC #### [facility] Laboratory [address] [address] [address] Ashlie Jerome D 25-OH LABCORPon 42-73-5126Sddlzgo D, 25-Hydroxy<4.0 Critically low30.0-100.0The [facility] CenterComment on above:Result Comment: Vitamin D deficiency has been defined by the [place] of [employer] and an Endocrine Society practice guideline as a level of serum 25-OH vitamin D less than 20 ng/mL (1,2). The Endocrine Society went on to further define vitamin D insufficiency as a level between 21 and 29 ng/mL (2). 1. IOM ([place] of [employer]). 2010. Dietary reference intakes for calcium and D. [place]: The National Academies Press. 2. Lynda MF, Keely [place], Leandra LOPEZ, et al. Evaluation, treatment, and prevention of vitamin D deficiency: an Endocrine Society clinical practice guideline. JCEM. 2010; 96(7):1911-30.Performed By: #### CBC #### [facility] Laboratory [address] [address] [address] Ashlie HillsGLYCOHEMOGLOBIN A1Con 47-33-2993AMY RECOMMENDATIONSEE BELOWNormal The [facility] CenterComment on above:Result Comment: ADA RECOMMENDED LIMIT 4.0 - 6.0 ADA THERAPEUTIC TARGET < 7.0 ACTION SUGGESTED > 7.0Performed By: #### CVDAGS #### [facility] Laboratory [address] [address] [address] Ashlie HillsGlucose [Mass/Vol]295 mg/dLNormalThe [facility] CenterComment on above:Performed By: #### CVDAGS #### [facility] Laboratory [address] [address] [address] Ashlie HillsHbA1c (Bld) [Mass fraction]11.9 %Critically high4.5-6.2The [facility] CenterComment on above:Performed By: #### CVDAGS #### [facility] Laboratory [address] [place] [address] Dr. Ashlie HillsHEMOGRAM AND PLATELon 72-58-7186Lmbevjgraa (Bld) [Volume fraction]56.3 %Critically high36.0-48.0The [facility] CenterComment on above: Performed By: #### CVDAGS #### [facility] Laboratory [address] [place] [address] Dr. Ashlie HillsHemoglobin (Bld) [Mass/Vol]18.0 g/dLCritically high12.0-16.0The [facility] CenterComment on above:Performed By: #### CVDAGS #### [facility] Laboratory [address] [place] [address] Dr. Ashlie MckeonH (RBC) [Entitic mass]29.5 nmNngyrx68.7-34.0The [facility] CenterComment on above:Performed By: #### CVDAGS #### [facility] Laboratory [address] [place] [address] Dr. Ashlie MckeonHC (RBC) [Mass/Vol]32.0 g/zZBzewcv28.9-35.2The [facility] CenterComment on above:Performed By: #### CVDAGS #### [facility] Laboratory [address] [place] [address] Dr. Ashlie MckeonV (RBC) [Entitic vol]92.1 gDItteom65.0-99.0The [facility] CenterComment on above:Performed By: #### CVDAGS #### [facility] Laboratory [address] [place] [address] Dr. Ashlie HillsPLT123 103/ulCritically nfe622-903Bit [facility] CenterComment on above:Performed By: #### CVDAGS #### [facility] Laboratory [address] [place] [address] Dr. Ashlie HillsRBC6.11 106/ulCritically high4.20-5.40The [facility] Comment on above:Performed By: #### CVDAGS #### [facility] Laboratory [address] [place] [address] Dr. Ashlie HillsWBC16.4 103/ulCritically high4.0-11.0The [facility] CenterComment on above:Performed By: #### CVDAGS #### [facility] Laboratory [address] [place] [address] Dr. Ashlie OmerID PROFILEon 91-64-0090PLKK-HDL RATIO NORMSEE BELOWHolzer Medical Center – JacksonComment on above:Result Comment: 3.3 - 4.4 LOW RISK 4.4 - 7.1 AVERAGE RISK 7.1 - 11.0 MODERATE RISK >11.0 HIGH RISKPerformed By: #### CVDAGS #### [facility] Laboratory [address] [place] [address] Dr. Ashlie Lopezesterol [Mass/Vol]159 mg/dLNormal<=200The [facility] Comment on above:Performed By: #### CVDAGS #### [facility] Laboratory [address] [place] [address] Dr. Ashlie HillsCholesterol in HDL [Mass/Vol]40 mg/yXAnajrt69-15Tih [facility] CenterComment on above:Performed By: #### CVDAGS #### [facility] Laboratory [address] [place] [address] Dr. Ashlie HillsCholesterol in LDL [Mass/Vol]81.8 mg/dLHolzer Medical Center – JacksonComment on above:Performed By: #### CVDAGS #### [facility] Laboratory [address] [place] [address] Dr. Ashlie Villa.total/Cholesterol in HDL [Mass ratio]4.0 {ratio} NormalThe [facility] CenterComment on above:Performed By: #### CVDAGS #### [facility] Laboratory [address] [place] [address] Dr. Ashlie Potts NORMAL> or = 60 mg/dl - LOW CARDIOVASCULAR RISK <40 mg/dl - HIGH CARDIOVASCULAR RISKHolzer Medical Center – JacksonComment on above:Performed By: #### CVDAGS #### [facility] Laboratory [address] [place] [address] Dr. Ashlie Desai CALC NORMALSEE BELOWHolzer Medical Center – JacksonComment on above:Result Comment: <100 mg/dl OPTIMAL 100 - 129 mg/dl NEAR OR ABOVE OPTIMAL 130 - 159 mg/dl BORDERLINE HIGH 160 - 189 mg/dl HIGH >190 mg/dl VERY HIGH Performed By: #### CVDAGS #### [facility] [address] [place] [address] Dr. Ashlie HillsTriglyceride [Mass/Vol]186 mg/dLCritically high<=150The [facility] CenterComment on above:Performed By: #### CVDAGS #### [facility] Laboratory [address] [address] [address] Ashlie HillsVLDL CALC37.2 mg/dLHolzer Medical Center – JacksonComment on above: Performed By: #### CVDAGS #### [facility] Laboratory [address] [place] [address] Dr. Ashlie HillsRENCHAUNCEY FUNCTION PANELon 50-91-9486Bsqzdue [Mass/Vol]3.1 g/dL Critically low3.4-5.0[facility] NorthComment on above:Performed By: #### CBC #### [facility] Laboratory [address] [place] [address] Dr. Ashlie HillsCalcium [Mass/Vol]9.2 mg/dLNormal8.5-10.1[facility] Comment on above:Performed By: #### CBC #### [facility] Laboratory [address] [place] [address] Dr. Ashlie HillsChloride [Moles/Vol]102 mmol/HFaxlbw66-158Hfb [facility] Comment on above:Performed By: #### CBC #### [facility] Laboratory [address] [address] [address] Ahslie HillsCO2 [Moles/Vol]31.9 mmol/TUjvzvg36.0-32.0The [facility] Comment on above:Performed By: #### CBC #### [facility] Laboratory [address] [place] [address] Dr. Ashlie HillsCreatinine [Mass/Vol]0.68 mg/dLNormal0.55-1.02[facility] NorthComment on above:Performed By: #### CBC #### [facility] Laboratory [address] [address] [address] Ashlie GrahamGFR-AF MARTINIQUAIS>60Normal>=60The [facility] CenterComment on above:Performed By: #### CBC #### [facility] Laboratory [address] [address] [address] Ashlie GrahamGFR-NON AF MARTINIQUAIS>60Normal>=60The [facility] CenterComment on above:Performed By: #### CBC #### [facility] [address] [address] [address] Ashlie HillsGlucose [Mass/Vol]131 mg/dLCritically fnpz21-114Auc [facility] CenterComment on above:Performed By: #### CBC #### [facility] Laboratory [address] [address] [address] Ashlie HillsPhosphate [Mass/Vol]4.0 mg/dLNormal2.6-4.7The [facility] Comment on above:Performed By: #### CBC #### [facility] Laboratory [address] [address] [address] Ashlie HillsPotassium [Moles/Vol]4.0 mmol/LNormal3.5-5.1The [facility] Comment on above:Performed By: #### CBC #### [facility] Laboratory [address] [address] [address] Ashlie HillsSodium [Moles/Vol]141 mmol/DRyzmox923-047Sxs [facility] Comment on above:Performed By: #### CBC #### [facility] [address] [address] [address] Ashlie HillsUrea nitrogen [Mass/Vol]17.0 mg/dLNormal7.0-18.0The [facility] CenterComment on above:Performed By: #### CBC #### [facility] [address] [address] [address] Ashlie Vaughn RANDOM W/MICROSCOPICon 26-68-4198TDKVLJTTTAWC SEENNormalNONE SEENThe [facility] CenterComment on above:Performed By: #### INFLUAB #### [facility] [address] [address] [address] Ashlie HillsBilirubin Ql (U)NegativeNormalNEGGeorgetown Behavioral Hospital Comment on above:Performed By: #### INFLUAB #### [facility] [address] [address] [address] Ashlie HillsCASTNONE SEENNormalNONE SEENPremier Health Miami Valley Hospital NorthComment on above:Performed By: #### INFLUAB #### [facility] [address] [address] [address] Ashlie HillsClarity (U)CLEARNormalCLEARPremier Health Miami Valley Hospital NorthComment on above: Performed By: #### INFLUAB #### [facility] [address] [address] [address] Ashlie HillsColor (U)YELLOWNormalYELLOWPremier Health Miami Valley Hospital NorthComment on above: Performed By: #### INFLUAB #### [facility] [address] [address] [address] Ashlie HillsCrystals LM Nom (Urine sed)NONE SEENNormalNONE SEENPremier Health Miami Valley Hospital NorthComment on above:Performed By: #### INFLUAB #### [facility] [address] [address] [address] Dailey ChangEpithelial cells LM Ql (Urine sed)FEWAbnormalNONE SEEN /RAREPremier Health Miami Valley Hospital NorthComment on above:Performed By: #### INFLUAB #### [facility] [address] [address] [address] Ashlie HillsGlucose Ql (U)NegativeNormalNEGATIVEPremier Health Miami Valley Hospital NorthComment on above:Performed By: #### INFLUAB #### [facility] Laboratory [address] [place] [address] Dr. Ashlie HillsHemoglobin Ql (U)NegativeNormalNEGGeorgetown Behavioral Hospital Comment on above:Performed By: #### INFLUAB #### [facility] [address] [address] [address] Ashlie HillsKetones Ql (U)NegativeNormalNEGATIVEGreen Cross Hospital [facility] CenterComment on above:Performed By: #### INFLUAB #### [facility] [address] [address] [address] Ashlie HillsLEUKOCYTESNegativeNormalNEGATIVEThe [facility] CenterComment on above:Performed By: #### INFLUAB #### [facility] Laboratory [address] [place] [address] Dr. Ashlie HillsMUCOUSNONE SEENNormalNONE SEENThe [facility] CenterComment on above:Performed By: #### INFLUAB #### [facility] [address] [place] [address] Dr. Ashlie HillsNitrite Ql (U)NegativeNormalNEGATIVEThe [facility] CenterComment on above:Performed By: #### INFLUAB #### [facility] Laboratory [address] [place] [address] Dr. Ashlie HillspH (U)5.5 [pH]Normal5-9The [facility] CenterComment on above: Performed By: #### INFLUAB #### [facility] [address] [place] [address] Dr. Ashlie HillsHjngmEBP0-5Jbvaxa2-8Dob [facility] on above:Performed By: #### INFLUAB #### [facility] [address] [place] [address] Dr. Ashlie HillsSPEC GRAVITY>=1.478Nrvamqfe0.005-<=1.025The [facility] Comment on above:Performed By: #### INFLUAB #### [facility] [address] [place] [address] Dr. Ashlie Vaughn ZQZQIGH486 mg/dlAbnormalNEGATIVE/ TRACEThe [facility] Comment on above:Performed By: #### INFLUAB #### [facility] [address] [place] [address] Dr. Ashlie Pandyainogen Qn (U)0.2 {Little'U}/dLNormal0.2 - 1.0The [facility] CenterComment on above:Performed By: #### INFLUAB #### [facility] [address] [address] [address] Ashlie BhaktaBCNONTracey SEENNormalNONE SEENThe [facility] CenterComment on above: Performed By: #### INFLUAB #### [facility] [address] [place] [address] Dr. Ashlie Christine ACID SERUMon 13-92-1526Wtklm [Mass/Vol]5.0 mg/dLNormal 2.6-6.0The [facility] HospitalComment on above:Performed By: #### INFLUAB #### [facility] [address] [place] [address] Dr. Ashlie Recinos T PROTEIN CREAT RATIOon 56-69-5480Zfrvoxu (U) [Mass/Vol] 77.9 mg/dLCritically high<=12.0The [facility] CenterComment on above:Performed By: #### CVDAGS #### [facility] [address] [place] [address] Dr. Ashlie Sullivan PROT CREAT RAT0.44NormalThe [facility] CenterComment on above: Performed By: #### CVDAGS #### [facility] [address] [place] [address] Dr. Ashlie Recinos ZYKON682.15 mg/mCKyxpxj50.00-300.00The [facility] Comment on above:Performed By: #### CVDAGS #### [facility] [address] [place] [address] Dr. Ashlie HillsCULTURE URINEon 16-90-9896OPEICSU URINECulture Observations: GREATER THAN TWO ORGANISMS PRESENT, HEAVILY MIXED. PLEASE RESUBMIT CLEAN CATCH MID-STREAM URINE IF CLINICALLY INDICATED.NormalThe [facility] CenterComment on above:Performed By: #### INFLUAB #### [facility] [address] [place] [address] Dr. Ashlie VernonC AUTO DIFFon 39-00-4982DXOL #0.1 103/ulNormal0.0-0.1The [facility] CenterComment on above:Performed By: #### CBC #### [facility] [address] [place] [address] Dr. Ashlie HillsBasophils/100 WBC (Bld)0.5 %Normal0.2-2.0The [facility] Comment on above:Performed By: #### CBC #### [facility] [address] [address] [address] Ashlie Mcintosh #0.4 103/ulNormal0.0-0.7The [facility] CenterComment on above: Performed By: #### CBC #### [facility] [address] [address] [address] Ashlie Grahamosinophils/100 WBC (Bld)2.4 %Normal0.9-7.0The [facility] Comment on above:Performed By: #### CBC #### [facility] [address] [place] [address] Dr. Ashlie Grahamrythrocyte distribution width (RBC) [Ratio]14.1 %Qcjwnu89.0-15.0 [facility] NorthComment on above:Performed By: #### CBC #### [facility] [address] [place] [address] Dr. Ashlie HillsHematocrit (Bld) [Volume fraction]55.9 %Critically high36.0-48.0 The [facility] CenterComment on above:Performed By: #### CBC #### [facility] [address] [place] [address] Dr. Ashlie HillsHemoglobin (Bld) [Mass/Vol]17.9 g/dLCritically high12.0-16.0The [facility] CenterComment on above:Performed By: #### CBC #### [facility] [address] [place] [address] Dr. Ashlie Hunter #0.06 10e3/ulCritically high0.00-0.03The [facility] Comment on above:Performed By: #### CBC #### [facility] [address] [address] [address] Ashlie Hunter %0.4 %Normal0.0-0.5The [facility] CenterComment on above: Performed By: #### CBC #### [facility] [address] [address] [address] Ashlie Swenson #5.8 103/ulCritically high1.2-3.8The [facility] Comment on above:Performed By: #### CBC #### [facility] [address] [address] [address] Ashlie Jademphocytes/100 WBC (Bld)35.4 %Apqcxd13.5-60.0The [facility] CenterComment on above:Performed By: #### CBC #### [facility] [address] [place] [address] Dr. Ashlie Marie DIFF REQNONormalThe [facility] CenterComment on above: Performed By: #### CBC #### [facility] [address] [place] [address] Dr. Ashlie Mckeon (RBC) [Entitic mass]29.4 cgYdgcgq46.7-34.0The [facility] CenterComment on above:Performed By: #### CBC #### [facility] [address] [place] [address] Dr. Ashlie Mckeon (RBC) [Mass/Vol]32.0 g/hLMsyicz86.9-35.2The [facility] CenterComment on above:Performed By: #### CBC #### [facility] [address] [place] [address] Dr. Ashlie Mckeon (RBC) [Entitic vol]91.8 hTQwjvhl12.0-99.0The [facility] CenterComment on above:Performed By: #### CBC #### [facility] [address] [place] [address] Dr. Ashlie Killian #0.8 103/ulNormal0.3-0.8The [facility] CenterComment on above:Performed By: #### CBC #### [facility] [address] [place] [address] Dr. Ashlie Palominoocytes/100 WBC (Bld)4.8 %Normal1.7-12.0[facility] Comment on above:Performed By: #### CBC #### [facility] [address] [address] [address] Ashlie SteinUT #9.3 103/ulCritically high1.4-6.5The [facility] Comment on above:Performed By: #### CBC #### [facility] [address] [address] [address] Ashlie Steinutrophils/100 WBC (Bld)56.5 %Yfkenf25.0-75.0The [facility] CenterComment on above:Performed By: #### CBC #### [facility] [address] [address] [address] Ashlie Lantigualet mean volume (Bld) [Entitic vol]12.9 fLNormal9.5-13.5The [facility] CenterComment on above:Performed By: #### CBC #### [facility] [address] [place] [address] Dr. Ashlie HillsPLT127 103/ulCritically umw522-067Jmt [facility] CenterComment on above:Performed By: #### CBC #### [facility] [address] [address] [address] Ashlie HillsRBC6.09 106/ulCritically high4.20-5.40The [facility] Comment on above:Performed By: #### CBC #### [facility] [address] [address] [address] Ashlie HillsWBC16.4 103/ulCritically high4.0-11.0The [facility] CenterComment on above:Performed By: #### CBC #### [facility] [address] [place] [address] Dr. Ashlie HillsCT ABD/PELVIS WO CONon 19-07-2447QB ABD/PELVIS WO CON Begin Addendum #1 Mildly [...] diverticulosis without diverticulitis. Severe right hip degenerative change.NormalThe [facility] URINE PROFILEon 66-67-7142Ymvmpsbet Ql (U) NegativeNormalNEGATIVEPremier Health Miami [facility] Hospital NorthComment on above:Performed By: #### ERUR, UMICRO #### [facility] [address] [address] [address] Ashlie Chilel (U)CLEARNormalCLEARPremier Health [facility] Hospital NorthComment on above: Performed By: #### ERUR, UMICRO #### [facility] [address] [address] [address] Ashlie Roberts (U)DK. ORANGEAbnormalYELLOWPremier Health Miami Valley Hospital NorthComment on above:Performed By: #### ERUR, UMICRO #### [facility] [address] [address] [address] Ashlie Clayton micrscopic examination will be performed if indicated. NormalPremier Health Miami Valley Hospital NorthComment on above:Performed By: #### OBED, UMICRO #### [facility] [address] [address] [address] Ashlie HillsGlucose Ql (U)250 mg/dlAbnormalMiami Valley Hospital Comment on above:Performed By: #### KRISTINAR, UMICRO #### [facility] [address] [address] [address] Ashlie HillsHemoglobin Ql (U)[facility] CampusrmalNEGGeorgetown Behavioral Hospital Comment on above:Performed By: #### ERUR, UMICRO #### [facility] [address] [address] [address] Ashlie HillsKetones Ql (U)NegativeNormalNEGATIVEPremier Health [facility] Hospital NorthComment on above:Performed By: #### ERUR, UMICRO #### [facility] [address] [address] [address] Ashlie HillsLEUKOCYTESNegativeNormalNEGGeorgetown Behavioral HospitalComment on above:Performed By: #### ERUR, UMICRO #### [facility] [address] [address] [address] Ashlie HillsNitrite Ql (U)NegativeNormalNEGATIVEPremier Health [facility] Hospital NorthComment on above:Performed By: #### ERUR, UMICRO #### [facility] [address] [place] [address] Dr. Ashlie HillspH (U)5.0 [pH]Normal5-9The [facility] CenterComment on above: Performed By: #### OBED UMICRO #### [facility] [address] [place] [address] Dr. Ashlie HillsProtein (U) [Mass/Vol]100 mg/dLAbnormalNEGATIVE/ TRACEThe [facility] CenterComment on above:Performed By: #### OBED UMICRO #### [facility] [address] [place] [address] Dr. Ashlie HillsSPEC GRAVITY>=1.703Kaujhrnm1.005-<=1.025The [facility] Comment on above:Performed By: #### OBED UMICRO #### [facility] [address] [place] [address] Dr. Ashlie HillsUR MICRO INDINDICATEDNormalThe [facility] CenterComment on above: Performed By: #### OBED UMICRO #### [facility] [address] [place] [address] Dr. Ashlie Metzbilinogen Qn (U)1.0 {Little'U}/dLNormal0.2 - 1.0The [facility] CenterComment on above:Performed By: #### OBED UMICRO #### [facility] [address] [place] [address] Dr. Ashlie HillsPROF CHEM 8 (BAS METB)on 75-99-8561Ffpck gap [Moles/Vol]12.1 mmol/LNormalThe [facility] CenterComment on above:Performed By: #### INFLUAB #### [facility] [address] [place] [address] Dr. Ashlie HillsCalcium [Mass/Vol]9.0 mg/dLNormal8.5-10.1[facility] Comment on above:Performed By: #### INFLUAB #### [facility] [address] [place] [address] Dr. Ashlie HillsChloride [Moles/Vol]101 mmol/TMlwfiu46-587Osr [facility] Comment on above:Performed By: #### INFLUAB #### [facility] [address] [place] [address] Dr. Ashlie HillsCO2 [Moles/Vol]29.1 mmol/VSryuve60.0-32.0The [facility] Comment on above:Performed By: #### INFLUAB #### [facility] [address] [address] [address] Ashlie HillsCreatinine [Mass/Vol]0.86 mg/dLNormal0.55-1.02The [facility] CenterComment on above:Performed By: #### INFLUAB #### [facility] [address] [place] [address] Dr. Dailey ChangEGFR-AF MARTINIQUAIS>60Normal>=60The [facility] CenterComment on above:Performed By: #### INFLUAB #### [facility] [address] [place] [address] Dr. Ashlie GrahamGFR-NON AF MARTINIQUAIS>60Normal>=60The [facility] CenterComment on above:Performed By: #### INFLUAB #### [facility] [address] [place] [address] Dr. Ashlie HillsGlucose [Mass/Vol]236 mg/dLCritically ynny87-631Jcy [facility] CenterComment on above:Performed By: #### INFLUAB #### [facility] [address] [place] [address] Dr. Ashlie HillsPotassium [Moles/Vol]4.2 mmol/LNormal3.5-5.1The [facility] Comment on above:Performed By: #### INFLUAB #### [facility] [address] [place] [address] Dr. Ashlie HillsSodium [Moles/Vol]138 mmol/BLosfrg711-997Tlp [facility] Comment on above:Performed By: #### INFLUAB #### [facility] [address] [place] [address] Dr. Ashlie HillsUrea nitrogen [Mass/Vol]11.0 mg/dLNormal7.0-18.0[facility] NorthComment on above:Performed By: #### INFLUAB #### [facility] [address] [place] [address] Dr. Ashlie Jones nitrogen/Creatinine [Mass ratio]12.8 mg/mgNoRegency Hospital CompanyComment on above:Performed By: #### INFLUAB #### [facility] [address] [place] [address] Dr. Ashlie Recinos MICROSCOPIC ONLYon 80-00-6940WCWJYUGBMRSUNRkslaavcRDUK SEEN [facility] NorthComun[facility] of [facility] on above:Performed By: #### MADELINE CLAYRO #### [facility] [address] [place] [address] Dr. Ashlie Cortez identified Cx Nom (U)INDICATEDHolzer Medical Center – JacksonComuniversity of michigan health on above:Performed By: #### PEREZ CLAYICRO #### [facility] [address] [place] [address] Dr. Ashlie Thibodeaux SEENNormalNONE SEENPremier Health Miami Valley Hospital NorthComuniversity of mich[facility] health on above:Performed By: #### MADELINE CLAYRO #### [facility] [address] [place] [address] Dr. Ashlie Banegas LM Nom (Urine sed)NONE SEENNormalNONE SEENPremier Health [facility] Hospital NorthComuniversity of michigan health on above:Performed By: #### OBED UMICRO #### [facility] [address] [place] [address] Dr. Dailey ChangEpithelial cells LM Ql (Urine sed)MODERATEAbnormalNONE SEEN /RARE The [facility] CenterComuniversity of mich[facility] health on above:Performed By: #### OBED UMICRO #### [facility] [address] [place] [address] Dr. Ashlie Guzman SEENNormalNONE SEENPremier Health [facility] Hospital NorthComuniversity of [facility] health on above:Performed By: #### OBED UMICRO #### [facility] [address] [place] [address] Dr. Ashlie HillsQnujcVSW7-8Injmua8-3DfnBarnesville Hospitalment on above:Performed By: #### ERUR, UMICRO #### [facility] [address] [place] [address] Dr. Ashlie HillsWBC0-2AbnormalNONE SEENSycamore Medical Center on above: Performed By: #### ERUR, UMICRO #### [facility] [address] [address] [address] Ashlie VelásquezASTPRESENTAbnormalNONE SEENBarnesville Hospitalment on above:Performed By: #### ERUR, UMICRO #### [facility] [address] [address] [address] Ashlie Hutchinson RIGHT 1 OR 2 VWS WITH PELVISon 51-85-3062OOK RIGHT 1 OR 2 VWS WITH PELVISUnOhioHealth Grady [facility] Department of Radiology [address] [place] [id number] Patient Name: MITZI MACIAS : 1970 Sex: F Age: Race: White Pt. Location: Patient Status: O Ordered Date: 07/20/2020 1:45:00 PM Completed Date: 07/20/2020 01:57 PM Requesting Provider: LIZ EISENBERG Attending Provider: LIZ EISENBERG Report Copy To: MCKAYLA BLAS Signs & Symptoms: M25.551 Pain in right hip I10 History: [place] Comments: evaluate Exam: HIP RIGHT 1 OR [...] MRI. Electronically signed: Pipo Acevedo. Transcribed by: [email or web address], User Resident: Electronically Signed by: PIPO ACEVEDO @ 07/20/2020 03:45 [facility] CenterComment on above:Order Comment: evaluate Vital Signs Date TimeVital SignValuePerforming YiizidquyXvvjwiby46-64-7064 17:58-0400Body .1 cmLisa Aichholz PROFILE SHAPER OPERATOR-C Work Phone: [phone] [place], [place] [address]24[address]10-22-2025 17:58-0400 Body mass index (BMI) [Ratio]61 kg/m2Lisa Aichholz PROFILE SHAPER OPERATOR-C Work Phone: [phone]10-22-2025 17:58-0400 Body iyfiflpzlbh50.1 [degF]Mckayla Aichholz PROFILE SHAPER OPERATOR-C Work Phone: [phone])[address]10-22-2025 17:58-0400 Body .18 kgLisa Aichholz PROFILE SHAPER OPERATOR-C Work Phone: [phone] [place], [place] [address]310-22-2025 17:58-0400 Diastolic blood gmwoaovl73 mm[Hg]Mckayla Aichholz PROFILE SHAPER OPERATOR-C Work Phone: [phone] [place], [place] [address]310-22-2025 17:58-0400 Heart rate84 /minLisa Aichholz PROFILE SHAPER OPERATOR-C Work Phone: [phone]10-22-2025 17:58-0400 Respiratory rate20 /minLisa Aichholz PROFILE SHAPER OPERATOR-C Work Phone: [phone] [place], [place] [address]310-22-2025 17:58-0400 SaO2% (BldA) [Mass fraction]90 %Mckayla Aichholz PROFILE SHAPER OPERATOR-C Work Phone: [phone]10-22-2025 17:58-0400 Systolic blood teluyzsq355 mm[Hg]Mckayla Aichholz PROFILE SHAPER OPERATOR-C Work Phone: [phone])[address]09-29-2025 15:37-0400 Body xjhlimtmvml51.1 [degF]Mckayla Aichholz PROFILE SHAPER OPERATOR-C Work Phone: 1([phone])[address]09-29-2025 15:37-0400 Diastolic blood fsoegvyp77 mm[Hg]Mckayla Aichholz PROFILE SHAPER OPERATOR-C Work Phone: [phone])[address]09-29-2025 15:37-0400 Heart rate81 /minLisa Aichholz PROFILE SHAPER OPERATOR-C Work Phone: [phone] [place], [place] [address]209-29-2025 15:37-0400 Respiratory rate20 /minLisa Aichholz PROFILE SHAPER OPERATOR-C Work Phone: [phone]09-29-2025 15:37-0400 SaO2% (BldA) [Mass fraction]92 %Mckayla Aichholz PROFILE SHAPER OPERATOR-C Work Phone: [phone]09-29-2025 15:37-0400 Systolic blood mm[Hg]Mckayla Aichholz PROFILE SHAPER OPERATOR-C Work Phone: [phone])[address]07-24-2025 09:48-0400 Body uyarwr462.2 Reji Souza MD Work Phone: [facility] MedicineChgmrbmbkj69-15-3038 09:48-0400Body mass index (BMI) [Ratio]56.38 kg/n9BgrmmRain Souza MD Work Phone: noMineral Area Regional Medical CenterVwdxavcfhz53-77-3011 09:48-0400Body igcocy778.29 kgRain Souza MD Work Phone: [facility] MedicinePoeoddumqg96-09-6489 09:48-0400Diastolic blood skyyjwoa06 mm[Hg]Rain Souza MD Work Phone: [facility] MedicineKztwbakuas15-15-8597 09:48-0400Heart rate72 /min Rain Souza MD Work Phone: [facility] MedicineHwabtceddo45-53-4575 09:48-0400Respiratory rate16 /minRain Souza MD Work Phone: [facility] MedicineIgsrocwmvz51-91-9592 09:48-7989DyX4% (BldA) [Mass fraction]84 %Rain Souza MD Work Phone: [facility] MedicineTgamojkbwg60-99-6290 09:48-0400Systolic blood mm[Hg]Rain Souza MD Work Phone: [facility] MedicineIuslccngyw88-41-7003 18:11-0400Body mass index (BMI) [Ratio]58.64 kg/m2Lisa Wan PROFILE SHAPER OPERATOR Work Phone: [facility] MedicineZkfezhzipm28-17-1635 18:11-0400Body temperature 98.49 [degF]Mckayla Wan PROFILE SHAPER OPERATOR Work Phone: [facility] MedicineUsiqmbfncl26-21-3586 18:11-0400Body oidmrr626.83 kgLisa Juanjosehmariyaz PROFILE SHAPER OPERATOR Work Phone: [facility] MedicineVzirznkiph36-80-7159 18:11-0400Diastolic blood emcfnach83 mm[Hg]Mckayla Chetz PROFILE SHAPER OPERATOR Work Phone: [facility] MedicineTlhjhezcac01-03-0682 18:11-0400Heart rate81 /min Mckayla Chetz PROFILE SHAPER OPERATOR Work Phone: [address] [phone] 18:11-0400Respiratory rate20 /minLisa Chetz PROFILE SHAPER OPERATOR Work Phone: [address] [address]Kxjqhdaalo56-60-6174 18:11-9302NsG7% (BldA) [Mass fraction]90 %Mckayla Chetz PROFILE SHAPER OPERATOR Work Phone: [facility] MedicineEdattqylyj04-97-2471 18:11-0400Systolic blood puljhrpb745 mm[Hg]Mckayla Rosenbergz PROFILE SHAPER OPERATOR Work Phone: [facility] MedicineCschvzgppt88-43-3070 10:19-0400Body temperature 98.01 [degF]Mckayla Harshadholz PROFILE SHAPER OPERATOR Work Phone: [facility] MedicineCezsdaufvf05-81-3804 10:19-0400Diastolic blood hzhoidfc35 mm[Hg]Mckayla Harshadholz PROFILE SHAPER OPERATOR Work Phone: [facility] MedicineSrpjblzwzr47-82-6735 10:19-0400Heart rate71 /min Mckayla Chetz PROFILE SHAPER OPERATOR Work Phone: [facility] MedicineNvnclqtvxv55-31-1313 10:19-0400Respiratory rate20 /minLisa Patriciaholz PROFILE SHAPER OPERATOR Work Phone: [facility] MedicineAdrkfgnioj58-55-5100 10:19-9524EqT3% (BldA) [Mass fraction]88 %Mckayla Rosenbergz PROFILE SHAPER OPERATOR Work Phone: [facility] MedicineVzkigizvnr33-33-5669 10:19-0Systolic blood tkmrucag465 mm[Hg]Mckayla Rosenbergz PROFILE SHAPER OPERATOR Work Phone: [facility] MedicineDjrgwjzbmo15-27-1916 14:11-0400Body kadjbu982.2 Brianisa Harshadholz PROFILE SHAPER OPERATOR Work Phone: [facility] MedicineUpsmzgxgbj18-14-1452 14:11-0400Body mass index (BMI) [Ratio]56.51 kg/m2Lisa Harshadholz PROFILE SHAPER OPERATOR Work Phone: [facility] MedicineCjuzkwxfum87-45-7028 14:11-0400Body temperature 98.71 [degF]Mckayla Patriciaholz PROFILE SHAPER OPERATOR Work Phone: [facility] MedicineRlpdomshlk71-42-3463 14:11-0400Body jyhcin423.66 kgLisa Juanjosehholz PROFILE SHAPER OPERATOR Work Phone: [facility] MedicineJhnnwnndei36-80-1798 14:11-0400Diastolic blood keflduvt88 mm[Hg]Mckayla Blas PROFILE SHAPER OPERATOR Work Phone: [facility] MedicineZlewapdjos15-49-8271 14:11-0400Heart rate75 /min Mckayla Blas PROFILE SHAPER OPERATOR Work Phone: noMineral Area Regional Medical CenterZkvddobrys10-76-8011 14:11-0400Respiratory rate18 /minLisa Blas PROFILE SHAPER OPERATOR Work Phone: noMineral Area Regional Medical CenterKyianbwnvy57-17-9957 14:11-0754IhM1% (BldA) [Mass fraction]90 %Mckayla Blas PROFILE SHAPER OPERATOR Work Phone: [facility] MedicineWudobqgpux34-40-0178 14:11-0400Systolic blood mm[Hg]Mckayla Blas PROFILE SHAPER OPERATOR Work Phone: [facility] MedicineKlcvjcgene08-18-2449 11:21-0400Body .2 Reji Souza MD Work Phone: [facility] MedicineMbrezkyweb42-49-4520 11:21-0400Body mass index (BMI) [Ratio]55.91 kg/p4JyjdqRain Souza MD Work Phone: [phone] MedicineDmawriiuou51-31-9307 11:21-0400Body .93 kgRain Souza MD Work Phone: [facility] MedicineDuhcstscji34-51-1695 11:21-0400Diastolic blood xavzgklp12 mm[Hg]Rain Souza MD Work Phone: [facility] MedicineKqwvfcswcg76-59-7920 11:21-0400Heart rate70 /min Rain Souza MD Work Phone: [facility] MedicineTqrfsflzwi23-69-9931 11:21-0400Respiratory rate16 /minRain Souza MD Work Phone: [facility] MedicineLdqmeikuvy90-19-7591 11:21-6403VdM3% (BldA) [Mass fraction]91 %Rain Souza MD Work Phone: [facility] MedicineVimeqveesu07-76-6394 11:21-0400Systolic blood awmcbzjb424 mm[Hg]Rain Souza MD Work Phone: noMineral Area Regional Medical CenterRgxaszjmag87-76-4863 17:44-0500Body mass index (BMI) [Ratio]57.31 kg/m2Mckayla Blas PROFILE SHAPER OPERATOR Work Phone: noMineral Area Regional Medical CenterVlnvwdvcin33-47-7596 17:44-0500Body temperature 98.01 [degF]Mckaylataryn Blas PROFILE SHAPER OPERATOR Work Phone: [facility] MedicineAsstwxmbkf97-65-8720 17:44-0500Body gvksep499.97 kgMaria De Jesus Wan PROFILE SHAPER OPERATOR Work Phone: [facility] MedicineUxcmxqaina77-62-0266 17:44-0500Diastolic blood ccjfeoda15 mm[Hg]Mckayla Wan PROFILE SHAPER OPERATOR Work Phone: [facility] MedicineYkwvpawywx48-62-4785 17:44-0500Heart rate83 /min Mckaylataryn Blas PROFILE SHAPER OPERATOR Work Phone: [facility] MedicineSvpbsusekf89-47-0446 17:44-0500Respiratory rate18 /minLi Wan PROFILE SHAPER OPERATOR Work Phone: [facility] MedicineYnifdxjtri69-76-8904 17:44-6808MeC4% (BldA) [Mass fraction]91 %Mckayla Wan PROFILE SHAPER OPERATOR Work Phone: [facility] MedicineUqbjmaqyai14-88-6258 17:44-0500Systolic blood lalmgpan382 mm[Hg]Mckaylataryn Blas PROFILE SHAPER OPERATOR Work Phone: [facility] MedicineYtidssyoby18-93-8434 10:00-0500Blood Pressure LocationPatricezra ARAUZ [facility] [place] 588942-04-2024 10:00-0500Diastolic blood dclylcuf19 mm[Hg]Elbert ARAUZ [facility] [place] 588942-04-2024 10:00-0500Heart rate76 /minPatrick [facility]RAUZ [facility] 10:00-0500Systolic blood dbdterhl106 mm[Hg]Elbert ARAUZ [facility] [place] 319481-19-2024 10:20-0500Body lepgqn771.2 Reji Souza MD Work Phone: [address] [place], [place] [address]Tanpeyigah33-67-1839 10:20-0500Body mass index (BMI) [Ratio]56.7 kg/l1YfrnpRain Souza MD Work Phone: [facility] MedicineFwkcihsmyd78-13-3424 10:20-0500Body sfcmti039.2 kgRain Souza MD Work Phone: [facility] MedicineXpqefhuhxj64-62-6334 10:20-0500Diastolic blood aliohmag69 mm[Hg]Rain Souza MD Work Phone: [phone] [place], [place] [address]Fdaeaqavoa90-61-5057 10:20-0500Heart rate72 /min Rain Souza MD Work Phone: [place] [address]Umgcnhyinz54-96-5513 10:20-0500Respiratory rate16 /minRain Souza MD Work Phone: [place] [address]Dfkeaekvoe82-51-8460 10:20-0500Systolic blood yueepkwv056 mm[Hg]Rain Souza MD Work Phone: [facility] MedicineGastjlpilg16-68-3855 10:27-0400Body .1 Jamal Blas PROFILE SHAPER OPERATOR Work Phone: [facility] MedicineWprnaegmuy00-09-0315 10:27-0400Body mass index (BMI) [Ratio]61.01 kg/m2Mckayla Blas PROFILE SHAPER OPERATOR Work Phone: [facility] MedicineYznedbmcox95-88-3635 10:27-0400Body temperature 98.49 [degF]Mckayla Blas PROFILE SHAPER OPERATOR Work Phone: [facility] MedicineSaugssxhsw82-33-5590 10:27-0400Body koyrgw585.29 kgMckayla Blas PROFILE SHAPER OPERATOR Work Phone: [facility] MedicineQupwfqoers07-65-3193 10:27-0400Diastolic blood jnriqyym44 mm[Hg]Mckayla Blas PROFILE SHAPER OPERATOR Work Phone: [facility] MedicinePpqdcgjlqo19-59-0053 10:27-0400Heart rate77 /min Mckayla Blas PROFILE SHAPER OPERATOR Work Phone: [facility] MedicineCyygcgpqcp76-17-0792 10:27-0400Respiratory rate19 /minMckayla Blas PROFILE SHAPER OPERATOR Work Phone: [facility] MedicineWiwewmouzf29-28-4712 10:27-8144CrQ9% (BldA) [Mass fraction]92 %Mckayla Blas PROFILE SHAPER OPERATOR Work Phone: noMineral Area Regional Medical CenterUabdbvnuik38-50-2033 10:27-0400Systolic blood sfpnzqfe277 mm[Hg]Mckayla Blas PROFILE SHAPER OPERATOR Work Phone: [facility] MedicineVpvkwycfwq87-50-2894 15:00-0400Body .18 cmAbdul Tico Other [facility] [employer] Other 843632-08-7982 15:00-0400Body cytrxgdeshw61.6 [degF]Stephanie Tico Other [place] [employer] Other 125543-64-3577 15:00-0400Diastolic blood mm[Hg] Stephanie Tico Other [employer] Other 08-31-2022 15:00-0400Respiratory rate20 /minAbdul Tico Other [employer] Other 08-31-2022 15:00-2572QyU8% (BldA) [Mass fraction]91 % Stephanie Tico Other rth [employer] Other 08-31-2022 15:00-0400Systolic blood ullkogbm334 mm[Hg] Stephanie Tico Other [facility] [employer] Other 08-15-2022 09:20-0400Body jyosjy454.18 cmAbdul Tico Other [place] [employer] Other 08-15-2022 09:20-0400Body ewrfghgpdqw55.5 [degF]Stephanie Tico Other [employer] Other 08-15-2022 09:20-0400Diastolic blood oryrmrut05 mm[Hg] Stephanie Tico Other [employer] Other 08-15-2022 09:20-0400Respiratory rate20 /minAbdul Tico Other [place] [employer] Other 08-15-2022 09:20-0308CcI1% (BldA) [Mass fraction]91 % Stephanie Tico Other [place] [employer] Other 08-15-2022 09:20-0400Systolic blood mgoelimn825 mm[Hg] Stephanie Tico Other [employer] Other 08-01-2022 10:24-0400Blood Pressure LocationElbert REGLA [facility] 08-01-2022 10:24-0400Diastolic blood rrrufsgy39 mm[Hg] Elbert ARAUZ [facility] 08-01-2022 10:24-040Heart rate70 /minPatrick ARAUZ [facility] 08-01-2022 10:24-0400Respiratory rate16 /minPatrick ARAUZ [facility] 08-01-2022 10:24-0400Systolic blood wvkbvmid538 mm[Hg] Elbert ARAUZ [facility] Encounters Encounter DateEncounter TypeCare ProviderFacilityStart: 04-29-2025 End: 27-13-3438lbeyhsgdazZqgtAshia Blas NP-C Work Phone: -[facility] ClydeStart: 04-29-2025 End: 16-38-3837Wulusof encounter procedureMckayla Blas NP-C-[facility] [place] Work Phone: Start: 93-65-4601rzghfskyjmXwyyxSelam Urias DPM Facility:Ortho/Sport MedStart: 04-23-2025 End: 16-99-2777sfzwjopyofTwqnqy Nas Bob MID LEVEL PROJECT MANAGER-CNPFacility:[facility] FindlayStart: 04-17-2025 End: 22-99-7557qlgzbcxhbbLosrbf Nas Bob MID LEVEL PROJECT MANAGER-CNPFacility:[facility] Hospitaltart: 04-06-2025 End: 98-54-9498cfcxnsbovpSporAshia Blas NP-C Work Phone: [facility] Work Phone: Start: 04-06-2025 End: 83-64-3543Xjdmylr encounter procedureMckayla Blas NP-C-[facility] [place] Work Phone: Start: 77-19-1871Uuwwpnk encounter procedureMckayla Blas PROFILE SHAPER OPERATOR-C Work Phone: [facility]art: 09-75-0202Dvy- patient / Non-visitFlynn Urisa DPM-[facility] Work Phone: Start: 86-11-4668Wpx-patient / Non-visitPrice Ramsey DO-[facility] Work Phone: Start: 20-90-7751snwfptyrmeCnahct Nas Bob MID LEVEL PROJECT MANAGER-COMPRESSOR STATION ENGINEER CHIEF Facility:[facility] FindlayStart: 03-23-2025 End: 99-54-2077uzjaiszhmgPafxns Nas Bob MID LEVEL PROJECT MANAGER-CNPFacility:[facility] FindlayStart: 03-11-2025 End: 60-65-7265yrgiygmhfgIdfpw Jon Johnson DPMFacility:[facility] CtrStart: 03-09-2025 End: 60-61-7457IbguyjGiav Aichholz NP Work Phone: noms [facility] FMComment on above:Tobacco user; Encounter for smoking cessation counselingStart: 01-29-2025 End: 45-04-1076Hedqjq Jack Souza MD Work Phone: noms ENDOCRINOLOGYStart: 01-29-2025 End: 18-56-2969Akridcashley Souza MD Work Phone: noms ENDOCRINOLOGYStart: 01-29-2025 End: 36-34-2925Oxomcknvf Result EncounterGeneric External Data ProviderNOMS External Department UnsolicitedStart: 01-29-2025 End: 22-66-1246qhqfsbzkthGYQXMRichard Negron AvailableStart: 01-29-2025 End: 54-94-1643Irwhzh outpatient visit 25 minutesRain Souza MD Work Phone: noms ENDOCRINOLOGYComment on above:Encounter for dietary consultation (Primary Dx); Type 2 diabetes mellitus with hyperglycemia, with long-term current use of insulin (HCC); Vitamin D deficiency; Primary hypertension ; Insulin long-term use (HCC); Hyperlipemia, mixed ; Microalbuminuria; Class 3 severe obesity due to excess calories with serious comorbidity and body mass index (BMI) of50.0 to 59.9 in adult ([facility])Start: 01-26-2025 End: 06-56-9121dxwiznewspALPW AICHHOLZNot AvailableStart: 01-26-2025 End: 42-34-5451Vykdedd encounter Marcela Blas PROFILE SHAPER OPERATOR Work Phone: noms CWM FMComment on above:Encounter for subsequent annual wellness visit (AWV) in Medicare patient (Primary Dx); Mixed hyperlipidemia ; Type 2 diabetes mellitus with complication, with long-term current use of insulin (HCC); Bilateral lower extremity edema; Gastro-esophageal reflux disease without esophagitis; Chronic diastolic heart failure ([facility]); Primary hypertension ; Pulmonary hypertension ([facility]); Diabetic polyneuropathy associated with type 2 diabetes mellitus ([facility]); Pulmonary emphysema, unspecified emphysema type ([facility]); Moderate persistent asthma without complication (HCC); Insomnia; Non-seasonal allergic rhinitis, unspecified trigger; Type 2 diabetes mellitus with unspecified complications (HCC); Anxiety and depression ; Antibiotic-induced yeast infection; Chronic obstructive pulmonary disease, unspecified (HCC); Hyperlipidemia, unspecified ; Vaginal yeast infection; Morbid (severe) obesity due to excess calories ([facility])Start: 01-06-2025 End: 75-16-7801cathntluvlGZCQZDYMercy Health Fairfield Hospitaltart: 12-18-2024 End: 11-29-2450CpfgrwJvpl Aichholz PROFILE SHAPER OPERATOR Work Phone: noms CWM FMComment on above:Hyperlipidemia, unspecified ; Tobacco user; Encounter for smoking cessation counselingStart: 12-09-2024 End: 29-80-6931Cywemxashley Blas PROFILE SHAPER OPERATOR Work Phone: noms CWM FMStart: 12-09-2024 End: 16-12-9091Zgqqbyyousif Blas PROFILE SHAPER OPERATOR Work Phone: noms CWM FMStart: 12-09-2024 End: 45-43-8682yqjnxckquiBBWP AICMARIYAZNot AvailableStart: 12-09-2024 End: 84-89-2516Kduhmn outpatient visit 25 minutesMckayla Blas PROFILE SHAPER OPERATOR Work Phone: noms CWM FMComment on above:Cellulitis of left lower extremity (Primary Dx); COPD exacerbation (CMS/HCC); Primary hypertension (CMS/HCC); Pulmonary hypertension (CMS/HCC); Morbid (severe) obesity due to excess calories (CMS/HCC); Type 2 diabetes mellitus with complication, with long-term current use of insulin (CMS/HCC); Anxiety and depression (CMS/HCC); Fever, unspecified fever causeStart: 12-04-2024 End: 56-48-8176Mwnjiuqua Result EncounterGeneric External Data ProviderNOMS External Department UnsolicitedStart: 12-04-2024 End: 71-64-7861Tnqvbwrif Result EncounterGeneric External Data ProviderNODE External Department UnsolicitedStart: 10-27-2024 End: 10-56-7251wkuxvnbqqoMRKX AICMARIYAZNot AvailableStart: 10-27-2024 End: 28-51-9545Vkmxwr outpatient visit 25 minutesMckayla Blas PROFILE SHAPER OPERATOR Work Phone: noms CWM FMComment on above:Primary hypertension (CMS/HCC) (Primary Dx); Diabetic polyneuropathy associated [...] esophagitis present; Venous ulcer of right leg ([facility])Start: 10-21-2024 End: 52-04-5643DiqbxjDyvf Aichdallin PROFILE SHAPER OPERATOR Work Phone: noms CWM FMComment on above:Chronic obstructive pulmonary disease, unspecifiedStart: 10-08-2024 End: 37-44-1926Fnyiwaxlp Result EncounterLisa Blas PROFILE SHAPER OPERATOR Work Phone: noms External Department UnsolicitedStart: 10-08-2024 End: 13-42-6879Ujmsnopfg Result EncounterLisa Blas PROFILE SHAPER OPERATOR Work Phone: noms External Department UnsolicitedStart: 10-08-2024 End: 58-83-0879Gjuyoa outpatient visit 25 Adolfo Souza MD Work Phone: noms ENDOCRINOLOGYComment on above:Type 2 diabetes mellitus with hyperglycemia, with long-term current use of insulin (CMS/HCC) (Primary Dx); Encounter for dietary consultation; Vitamin D deficiency; Primary hypertension (CMS/HCC); Insulin long-term use (CMS/HCC); Hyperlipemia, mixed (CMS/HCC); Microalbuminuria; Class 3 severe obesity due to excess calories with serious comorbidity and body mass index (BMI) of50.0 to 59.9 in adultStart: 10-08-2024 End: 43-60-2781zzglurqezkNCFIC F SABBAGHNot AvailableStart: 08-27-2024 End: 73-54-3324Kqpvez outpatient visit 25 minutesMckayla Wan SCHAEFER Work Phone: noms CWM FMComment on above:Anxiety and depression (CMS/HCC) (Primary Dx); Morbid (severe) obesity due [...] current use of insulin ([facility]); Tobacco user; Mixed hyperlipidemia ([facility]); Gout, unspecified cause, unspecified chronicity, unspecified site; Vitamin deficiency; Gastro-esophageal reflux disease without esophagitis; Edema, unspecified; Edema; Hyperlipidemia, unspecified ([facility]); Encounter for smoking cessation counseling; Venous ulcer of right leg ([facility]); Antibiotic-induced yeast infectionStart: 08-27-2024 End: 54-10-2697faebidgnphUGIX AICHHOLZNot AvailableStart: 08-27-2024 End: 50-99-6751Nuyzlxkgj Result EncounterGeneric External Data ProviderNOMS External Department UnsolicitedStart: 08-27-2024 End: 15-54-6060Oevgfparx Result EncounterGeneric External Data ProviderNOMS External Department UnsolicitedStart: 08-08-2024 End: 55-83-6704yzwdyymmheGQHFWAvita Health System Bucyrus Hospitaltart: 07-17-2024 End: 11-46-6444QvqenxTxbd Aichholz PROFILE SHAPER OPERATOR Work Phone: noms CWM FMStart: 07-14-2024 End: 84-32-3416Bktrcf outpatient visit 25 Heena Blas NP Work Phone: noms CWM FMComment on above:Primary hypertension ([facility]) (Primary Dx); Diabetic polyneuropathy associated with type 2 diabetes mellitus ([facility]); Pulmonary emphysema, unspecified emphysema type ([facility]); Critical limb ischemia of right lower extremity ([facility]); PAD (peripheral artery disease) ([facility]); Gastroesophageal reflux disease, unspecified whether esophagitis present; Bilateral lower extremity edema; Venous ulcer of right leg ([facility]); Type 2 diabetes mellitus with complication, with long-term current use of insulin ([facility]); Tobacco user; Encounter for smoking cessation counseling; Kidney stone; Adrenal mass 1 cm to 4 cm in diameter ([facility]); Radiculopathy, lumbar region; Non-seasonal allergic rhinitis, unspecified trigger; Type 2 diabetes mellitus with unspecified complications ([facility])Start: 07-14-2024 End: 93-88-9927dlfatbfricODAG AICHHOLZNot AvailableStart: 07-05-2024 End: 38-51-2829CuzkvdCfdz Chetz PROFILE SHAPER OPERATOR Work Phone: noms [facility] FMComment on above:Bilateral lower extremity edemaStart: 06-11-2024 End: 99-83-4801mdybtobeonWakxqtv Mahnaz REGLAFacility:EU SanduskyStart: 06-11-2024 End: 42-58-6815Kufwdmh encounter procedurePatricezra ARAUZ [facility] Ghada Start: 05-27-2024 End: 87-72-8845Vturulashley Souza MD Work Phone: noms ENDOCRINOLOGYStart: 05-27-2024 End: 69-13-7460Dfdkadyousif Souza MD Work Phone: noms ENDOCRINOLOGYStart: 05-27-2024 End: 59-04-9631nryemzwpmoCHTDE F SABBAGHNot AvailableStart: 05-27-2024 End: 60-22-7629Mziblj outpatient visit 25 minutesRain Souza MD Work Phone: noms ENDOCRINOLOGYComment on above:Type 2 diabetes mellitus with hyperglycemia, with long-term current use of insulin (CMS/HCC) (Primary Dx); Encounter for dietary consultation; Vitamin D deficiency; Primary hypertension (CMS/HCC); Insulin long-term use (CMS/HCC); Hyperlipemia, mixed (CMS/HCC); Microalbuminuria; Class 3 severe obesity due to excess calories with serious comorbidity and body mass index (BMI) of50.0 to 59.9 in adult (CMS/HCC)Start: 05-12-2024 End: 42-81-1994Adxaozxhm Result EncounterGeneric External Data ProviderNOMS External Department UnsolicitedStart: 05-12-2024 End: 55-31-5268Oafshqqfs Result EncounterGeneric External Data ProviderNOMS External Department UnsolicitedStart: 64-88-4718puikglhpxwPMWXXSPL E SILVIA Facility:EU [place]Start: 04-24-2024 End: 83-37-7012Dcvynuctj Result EncounterGeneric External Data ProviderNOMS External Department UnsolicitedStart: 04-24-2024 End: 42-36-6633Ovtxkwxvc Result EncounterGeneric External Data ProviderNOMS External Department UnsolicitedStart: 04-14-2024 End: 16-29-3558Ttbwei flowsNazanin Blas PROFILE SHAPER OPERATOR Work Phone: noms CWM FMStart: 04-14-2024 End: 51-18-1528Hoowkr flowsheetMckayla Blas PROFILE SHAPER OPERATOR Work Phone: noms CWM FMStart: 04-14-2024 End: 50-89-2131Dpblfe outpatient visit 25 minutesLisa Blas PROFILE SHAPER OPERATOR Work Phone: noms CWM FMComment on above:Primary hypertension (CMS/HCC) (Primary Dx); Insomnia; Type 2 [...] lower extremity edema; Tobacco user; Hyperpigmentation of skinStart: 04-14-2024 End: 66-90-6609rbtyrmbmyiLQIF LALITot AvailableStart: 04-05-2024 End: 82-39-7104PqtoiiMaig Aichholz PROFILE SHAPER OPERATOR Work Phone: noms CWM FMComment on above:Hyperlipidemia, unspecified (CMS/HCC); Bilateral lower extremity edemaVitamin D deficiency, unspecifiedStart: 17-19-7946Lnunsjp encounter procedureRain Souza MD Work Phone: noms HealthcareStart: 12-14-2023 End: 15-96-5916Jgmqrhlah Result EncounterLisa Wan PROFILE SHAPER OPERATOR Work Phone: noms External Department UnsolicitedStart: 12-14-2023 End: 36-87-0022Hawytaruc Result EncounterLisa Chetz PROFILE SHAPER OPERATOR Work Phone: noms External Department UnsolicitedStart: 08-31-2023 End: 77-18-3453Ohqoyckji Result EncounterAmy Cari PA Work Phone: noms External Department UnsolicitedStart: 08-31-2023 End: 42-97-8517Hdczqbjkd Result EncounterAmy [place] PA Work Phone: noms External Department UnsolicitedStart: 08-17-2023 RefillLisa Rosenbergz PROFILE SHAPER OPERATOR Work Phone: noms CWM FMComment on above:Vaginal yeast infection (Primary Dx)Start: 25-47-3885CczxsrXwjx Aichdallin PROFILE SHAPER OPERATOR Work Phone: NOGJ CWM FMComment on above:Type 2 diabetes mellitus with unspecified complications (CMS/HCC); Edema, unspecified; EdemaStart: 74-11-1898fjkddpioyfFDTSHWPPDZKK LAKSHMIPATHY .Facility:H6Qgbym: 12-05-2022 End: 71-16-9113Uutgfbjciz and management of inpatientJESSICA ALONDRA .Facility:H1 Start: 11-23-2022 End: 07-06-2773ibumezsgrqKCW MCKAYLA AICHHOLZFacility:X2Mbfdx: 11-22-2022 End: 98-54-7828ylllciobjrSLD MCKAYLA AICHHOLZFacility:U5Lnwjc: 11-17-2022 End: 92-41-2260rvonldryqsRWHSGHK HALKER .Facility:D0Bqdca: 11-15-2022 End: 73-75-5442Wwkoyym encounter procedureJENNIFER E SILVIA [facility] start: 10-05-2022 End: 07-08-1610agcvwmyujjMJONDZ DIAB .Facility:B8Uhphe: 09-21-2022 End: 34-27-5484dxistmwuqbVED MCKAYLATaryn BLASFacility:R7Rhqjg: 29-58-0527vatimkufin COMFORT CULLENFacility:S0Zxacu: 08-24-2022 End: 08-81-4315jirvxdovsbDV CHAPARRO S [place]ORT[place]EN .Facility:M3Amimh: 08-21-2022 End: 44-33-4003yyowcnrjunHQAXS D [facility]:X8Halsj: 07-27-2022 End: 92-13-8452karskzuzgiHVUC TAMLYN .Facility:K4Rteod: 07-18-2022 End: 37-77-2637flcztmcxxjLJMG TAMLYN .Facility:M6Vlfeb: 07-18-2022 End: 40-21-7602izrrfbqxwoOMIVS D [facility]Fac[facility]:R2Undbz: 07-06-2022 End: 82-31-6189ylxudbwuvpNXD MCKAYLA WANFacility:J6Zisum: 05-11-2022 End: 11-40-3305rknpmcqrytFYHN VALENZUELA .Facility:J7Cyyln: 04-25-2022 End: 74-58-1501pqjhpcixlsCH CHAPARRO S [place] .Facility:V3Zpxos: 04-20-2022 End: 69-87-8059yxettlocanXJLM VALENZUELA .Facility:N8Sibub: 03-08-2022 End: 77-52-8575yycatwcdlkQmrsi Tico Other [employer] Other Start: 66-25-3713Sacblq outpatient visit 15 minutes Stephanie QadirFPG NephrologyStart: 03-03-2022 End: 75-41-3034znomxbayiePJC MCKAYLA Judicility:S2Jqnji: 02-20-2022 End: 07-20-7125yuynyuebgiApeog Tico Other [employer] Other Start: 90-31-3714Ppxbuf outpatient new 45 minutesAbdul QadirFPG NephrologyStart: 02-06-2022 End: 39-63-5453Qcnldou encounter procedurePanaomy Mahnaz ARAUZ [facility] Wilfredo start: 01-19-2022 End: 71-16-4305wxoshkkvudIKDZ VALENZUELA .Facility:R0Ervmt: 12-24-2021 End: 27-36-5434adocydabfoHAKVM PARKERFacility:W7Mjmss: 08-26-2020 End: 04-72-2603Ddkqchm encounter procedureVITHAL SHENDGEFacility:UTMCStart: 10-30-2019 End: 27-44-2132Ytyoimtyo department patient visitDORevere Memorial Hospitaltart: 10-30-2019 End: 05-44-9794Xuodbohlb department patient visitCleveland Clinic [facility] Emergency DepartmentStart: 33-08-1528Uynotiixnksu stateAbdul Tico Other rt [employer] Other Procedures DateProcedureProcedure DetailPerforming ClinicianStart: 87-18-3364RU ECHO DOPPLER COMPLETEGeneric External Data ProviderStart: 16-59-8807Jsdk bld gluc mntr dev cleared fda spec home useAhart Souza MD Work Phone: Start: 11-81-2844WVOUK CULTURE 2Generic External Data ProviderStart: 76-43-9278UWTKG CULTURE 1Generic External Data ProviderStart: 45-33-5383Bcbf bld gluc mntr dev cleared fda spec home useRain Souza MD Work Phone: Start: 58-67-3228NAD UA (CLEAN/CATCH) MICROSCOPIC IF INDICATELisa Wan PROFILE SHAPER OPERATOR Work Phone: Start: 83-47-4836DBT CBC WITH AUTO DIFFGeneric External Data ProviderStart: 40-15-8216Ybze bld gluc mntr dev cleared fda spec home useAhmad F Libby MD Work Phone: Start: 23-36-2404XF LUMBAR SPINE WO CONGeneric External Data ProviderStart: 29-97-8260ZW ABDOMEN PELVIS W CONGeneric External Data ProviderStart: 18-47-9142KAV CREATININEGeneric External Data ProviderStart: 41-88-2135EZZOMZEYY BLOOD PRESSUREGeneric External Data ProviderStart: 74-92-2623DM TOMOSYNTHESIS SCREENING Chyna Blas NP Work Phone: Start: 05-69-5676KaatnkimgozSxwrw Sabbagh MD Work Phone: Start: 66-19-4491OMQUG CULTURE 2Generic External Data ProviderStart: 28-13-7114XABIG CULTURE 1Generic External Data ProviderStart: 58-82-7908CYA 12-LEADAmy Cari MAYERS Work Phone: Start: 15-97-2431MlehredqfzlGtqc Aichholz NP Work Phone: Start: 20-09-2462Efurnlcokfw observation [Identifier] in Cervix by Cyto stainMckayla Blas PROFILE SHAPER OPERATOR Work Phone: H/O: hysterectomyPatrick ARAUZ Laparoscopic cholecystectomyPatrick ARAUZ Operative procedure on footPatrick ARAUZ Plan of Treatment DateCare ActivityDetailAuthorStart: 02-01-2026 End: 90-50-6570Kzwoqsv encounter procedureNOMS CWM FMStart: 07-21-2026Medicare Annual Wellness (AWV)Medicare Annual Wellness (AWV)NOMS HealthcareStart: 22-18-4137Walhc screening for proteinDiabetes: Urine Protein ScreeningNOMS HealthcareStart: 83-63-6531Rytovhedd for malignant neoplasm of colonNOMS HealthcareStart: 33-68-4937Qzpizmqd screeningDiabetes: Retinopathy ScreeningNOMS HealthcareStart: 05-28-2025 End: 62-85-1943Hkyazao encounter procedureNOMS ENDOCRINOLOGYStart: 05-13-2025 Glaucoma screeningDiabetes: Retinopathy ScreeningNODE HealthcareStart: 76-41-2905Ahinnrxyus A1c measurementDiabetes: Hemoglobin K3AWUNPFreeman Orthopaedics & Sports Medicine Start: 04-29-2025 End: 24-38-6400Dpfeyog encounter procedureNOBONE AND [facility] FMStart: 33-12-1280Ahrlnyagd vaccinationNODE HealthcareStart: 01-28-2025 End: 81-65-0906Mdfkvqu encounter azhjoifnx57/23/2025 10:50 AM EDT Office Visit [facility] [address] [place] [address] Rain Souza MD [address] [place] [address] [facility]OCRINOLOGYStart: 01-26-2025 End: 42-03-4553Notyicj encounter dbqlvkfle05/21/2025 6:00 PM EDT Office Visit [facility] [address] [place] [address] Mckayla Blas, PROFILE SHAPER OPERATOR [address] [place] [address] [facility] FMStart: 07-11-2025Medicare Annual Wellness (AWV) Medicare Annual Wellness (AWV)[facility] HealthcareStart: 89-85-3981Hhcnsrmexk A1c measurementDiabetes: Hemoglobin L8UGKTVFreeman Orthopaedics & Sports MedicineStart: 12-15-2024 End: 62-26-3826VW Breast - bilateral ScreeningBilateral screening mammogram Imaging Routine Encounter for screening mammogram for malignant neoplasm of breast Expected: 12/15/2024 (Approximate), Expires: 12/27/2025[facility] Work Phone: Comment on above:Expected: 12/15/2024 (Approximate), Expires: 12/27/2025Start: 70-88-3113Fsgbhumoo for malignant neoplasm of breast MammogramFreeman Orthopaedics & Sports MedicineStart: 43-71-6877Yszud screening for proteinDiabetes: Urine Protein ScreeningNODE HealthcareStart: 10-27-2024 End: 60-03-3674Etejdqd encounter aluiuqduv77/21/2025 2:00 PM EDT Office Visit [facility] [address] [place] [address] Mckayla Blas, PROFILE [employer] OPERATOR [address] [place] [id number] [facility] FMStart: 10-08-2024 End: 43-66-4339Udbzqzf encounter gkhxvccri17/02/2025 11:20 AM EDT Office Visit [facility] [address] [place] [address] Rain Souza MD [address] [place] [id number] [facility]CRIN[facility]YStart: 08-27-2024 End: 56-94-2452Iyqidcp encounter slbsniuxg94/19/2025 5:30 PM EST Office Visit [facility] [address] [place] [address] Mckayla Blas, PROFILE SHAPER OPERATOR [address] [place] [address] FMStart: 08-27-2024 End: 116443-qwhpdrlfmjswzv D3 [Mass/volume] in Serum or PlasmaVitamin D 25 hydroxy Lab Routine Vitamin deficiency Expected: 08/27/2024 (Approximate), Expires: 08/27/2025NODE HealthcareComment on above:Expected: 08/27/2024 (Approximate), Expires: 08/27/2025Start: 73-05-8619Krfeinpohw A1c measurement Diabetes: Hemoglobin Y3ZSCRLFreeman Orthopaedics & Sports MedicineStart: 08-27-2024 End: 60-61-3513Rewrgsh function 2000 panel - Serum or PlasmaHepatic function panel Lab Routine Hyperlipidemia, unspecified ([facility]/HCC) Expected: 08/27/2024 (Approximate), Expires: 08/27/2025[facility] HealthcareComment on above:Expected: 08/27/2024 (Approximate), Expires: 08/27/2025Start: 08-27-2024 End: 26-23-7527Asdos 1996 panel - Serum or PlasmaLipid panel Lab Routine Mixed hyperlipidemia (CMS/HCC) Expected: 08/27/2024 (Approximate), Expires:08/27/2025 [facility] Healthcare Work Phone: Comment on above:Expected: 08/27/2024 (Approximate), Expires: 08/27/2025Start: 08-27-2024 End: 04-23-1332Hzdjmxfsqpkz/Creatinine panel in random UrineMicroalbumin / creatinine, urine ratio Lab Routine Primary hypertension (CMS/HCC) Type 2 diabetes mellitus with complication, with long-term current use of insulin ([facility]/HCC) Expected: 08/27/2024 (Approximate), Expires: 08/27/2025[facility] Healthcare Comment on above:Expected: 08/27/2024 (Approximate), Expires: 08/27/2025Start: 08-27-2024 End: 39-59-5761Pwmqs [Mass/volume] in Serum or PlasmaUric acid Lab Routine Gout, unspecified cause, unspecified chronicity, unspecified site Expected: (Approximate), Expires: 08/27/2025[facility] HealthcareComment on above: Expected: 08/27/2024 (Approximate), Expires: 08/27/2025Start: 08-27-2024 End: 13-35-2349Jhhukkpizw complete panel - UrineUrinalysis with reflex microscopic (clean catch) Lab Routine Primary hypertension ([facility]/HCC) Type 2 d iabetes mellitus with complication, with long-term current use of insulin ([facility]/HCC) Tobacco user Gout, unspecified cause, unspecified chronicity, unspecified site Expected: 08/27/2024 (Approximate), Expires: 08/27/2025[facility] HealthcareComment on above:Expected: 08/27/2024 (Approximate), Expires: 08/27/2025Start: 08-26-2024 End: 31-35-1890Qqhtbmq encounter vwoevbnag59/18/2025 10:30 AM EST Office Visit [facility] [address] [place] [address] Rain Souza MD [address] [place] [address] [facility]Start: 07-14-2024 End: 77-78-5198Dqmckph encounter zpokocpgt72/06/2025 6:30 PM EST Office Visit [facility] [address] [place] [address] Mckayla Blas, PROFILE SHAPER OPERATOR [address] [place] [address] [facility] FMStart: 07-14-2024 End: 84-52-9706Ghtpfzd encounter axvwxllfu74/06/2025 10:10 AM EST Office Visit [facility] [address] [place] [address] Rain Souza MD [address] [place] [address] [facility] ENDOCRINOLOGYStart: 60-85-0218Szhnqqnwq vaccinationInfluenza Vaccine (#1)[facility] HealthcareComment on above:Postponed from 03/09/2024 (Patient Refused)Start: 05-27-2024 End: 09-17-4843Tqwzpde encounter skylwlton67/19/2024 9:50 AM EST Office Visit [facility] [address] [place] [phone] Rain Souza MD [address] [place] [address] [facility] ENDOCRINOLOGYStart: 05-86-9080Vyqgqiyfpn A1c measurementDiabetes: Hemoglobin Y1VWBTU HealthcareStart: 05-15-2024 End: 28-73-6890Giorl pgewyjeikme52/07/2024 Abstract [facility] [address] [place] [address] Rain Souza MD [address] [place] [address] [facility] END[facility]YStart: 05-15-2024 End: 22-55-8330Urgnkro encounter dgrlfajyl28/07/2024 11:20 AM EST Office Visit [facility] [address] [place] [address] Rain Souza MD [address] [place] [address] [facility] ENDOCRINOLOGYStart: 04-17-2024 End: 56-67-1567Ohgzlxr encounter veqjpvkkm91/10/2024 3:40 PM EDT Office Visit [facility] [address] [place] [address] Mckayla Blas, PROFILE SHAPER OPERATOR [address] [place] [address] [facility] FMStart: 04-14-2024 End: 02-70-7706Uvknwlg encounter yeyfiusoq58/07/2024 11:00 AM EDT Office Visit [facility] [address] [place] [address] Mckayla Blas, PROFILE SHAPER OPERATOR [address] [place] [address] [facility]rivedNOB[facility] FMComment on above:ArrivedStart: 03-09-2024 Influenza vaccinationInfluenza Vaccine (#1)[facility] HealthcareStart: 02-19-2024 Hemoglobin A1c measurementDiabetes: Hemoglobin B0AXDQV HealthcareStart: 42-48-7118Hqwyf screening for proteinDiabetes: Urine Protein ScreeningNODE HealthcareStart: 54-15-5941Lukmffewx for malignant neoplasm of breastMammogram [facility] MedicineStart: 10-15-2023 End: 47-65-5955Styefay encounter ctplwuscp19/08/2024 4:30 PM EDT Office Visit [facility] [address] [place] [address] Mckayla Blas, SILVANO [address] [place] [address] [facility] FMStart: 38-72-5286Oyttfgkmic A1c measurement Diabetes: Hemoglobin R4DCYFF HealthcareStart: 58-32-6948Xgzeimfx screening Diabetes: Retinopathy ScreeningNODE HealthcareStart: 18-45-5860Drrwdgboe vaccinationFlu vaccine (Season Ended)[facility]: 10-07-2018 Screening for malignant neoplasm of cervixNODE HealthcareStart: 21-55-0064Qxxxx panelLipid screenCleveland Clinic Hillcrest [facility]: 50-05-2674Emfbzcmul for malignant neoplasm of cervixHPV/CotestNODE HealthcareStart: 19-29-7571Woairgivg for malignant neoplasm of cervixCervical cancer [facility]: 68-21-4077OVwE/Tdap/Td vaccine (1 - Tdap)DTaP/Tdap/Td vaccine (1 - Tdap)[facility]: 07-47-7306FIR screeningHIV [facility]: 02-17-1971Medicare Annual Wellness (AWV)Medicare Annual Wellness (AWV)[facility] HealthcareStart: 17-17-7267Isgqyryau for malignant neoplasm of colonNOMS HealthcareBLOOD CULTURE 1BLOOD CULTURE 1 Lab Routine 12/04/2024 4:44 PM EDTNODE HealthcareBLOOD CULTURE 2BLOOD CULTURE 2 Lab Routine 12/04/2024 5:28 PM EDTNODE Healthcare Immunizations Immunization DateImmunizationNotesCare OyaipubbBffotmuk22-00-2117squuiyqtm, injectable, quadrivalent, contains preservativeLisa Aichholz PROFILE SHAPER OPERATOR Work Phone: NOMineral [facility] Medical CenterNwyilxryvr93-50-0036szeleusef virus vaccine, unspecified formulationRain Souza MD Work Phone: [facility]01-11-2022SARS-CoV-2 (COVID-19) mRNA BNT-162b2 vaxJENNIFER SILVIA [facility]04-22-2021SARS-CoV-2 (COVID-19) mRNA BNT-162b2 vaxJENNIFER SILVIA [facility]04-02-2021SARS-CoV-2 (COVID-19) mRNA BNT-162b2 vaxJENNIFER SILVIA [facility]10-09-2017influenza virus vaccine, H5N1, A/ (national stockpile)Mckayla Blas PROFILE SHAPER OPERATOR Work Phone: [facility] MedicineClcyhbfkqb75-13-9467zroovsbvb virus vaccine, unspecified formulationRain Souza MD Work Phone: NOMineral [facility] Medical CenterTjklkmojsn14-12-4410fioqdldzp, unspecified formulationWintermute [facility] [place] 319480-09-2017pneumococcal polysaccharide vaccine, 23 Morgan Souza MD Work Phone: noMineral Area Regional Medical CenterIroktwdrlt92-82-0787qbjujpeoh virus vaccine, H5N1, A/ (national stockpile)Mckayla Blas PROFILE SHAPER OPERATOR Work Phone: noMineral Area Regional Medical CenterLhwrvywcsu57-18-2561ngssdujiw virus vaccine, unspecified formulationRain Souza MD Work Phone: noMineral Area Regional Medical CenterXlxiixhrix88-89-0402vvojibjut, unspecified formulationPatrick Walltik [facility]y10-25-2013influenza virus vaccine, whole virusRain Souza MD Work Phone: [facility] MedicineBdvkaaoboq88-80-3445hxepgahzo, injectable, quadrivalent, contains preservativeLisa Aichholz PROFILE SHAPER OPERATOR Work Phone: [facility] MedicineIorreggqdd71-04-8571icxprywbv, wholePatrick ARAUZ [facility]y07-24-1998measles, mumps and rubella virus vaccineRain Souza MD Work Phone: [facility] Healthcare Payers DatePayer CategoryPayerPolicy [id number] 2024Medicare (Managed Care)[id number] Health [id number] [id number] 2019[place]icaid[place] [id number] 2018-Present [phone] [address] [place] [address]Medicaid [id number] 2013Medicare [id number] 2.16.840.1.131683.3.57[id number] 2..840.1.554332.3.57[id number] 2.16.840.1.205487.3.579.2.1[id number] 2..840.1.605471.3.579.[id number] 2..840.1.375946.3.579.2.36603-66-6622Hzpfcjr9529389 2..840.1.504942.3.579.2.72795-84-4612Jrbxvmz1102226 2.840.1.326087.3.579.2.97732-17-2542Aiyamtf0031060 2.840.1.064861.3.579.2.53350-17-8359Pvzfowg9076408 2.840.1.661833.3.579.2.77445-11-9613Vwopdmy2674973 2.840.1.932093.3.579.2.52702-26-0806Czuuccs4478959 2.840.1.075289.3.579.2.97059-53-7935Jrsyzbq9731122 2.840.1.703177.3.579.2.60525-41-6620Qsozzrx0111767 2.840.1.548998.3.579.2.85743-30-8193Tlvhyxn6729627 2.840.1.161323.3.579.2.02112-26-6220Fxzskgq0485100 2.840.1.769297.3.579.2.39278-48-6702Qxkscby6451421 2.840.1.054872.3.579.2.52868-78-9470Erknekl7564085 2..840.1.458142.3.579.2.78213-92-8288Bbkgzvy3865744 2.840.1.975387.3.579.2.98255-30-7935Uyhrezn4286809 2.840.1.162304.3.579.2.84277-28-2679Wlmwizu2807893 2.16.840.1.096020.3.579.2.07763-99-9960Dtvyopp0735729 2.840.1.723587.3.579.2.67725-03-5358Uceadbn9714102 2.840.1.387821.3.579.2.99215-88-3925Wkseowt1182269 2.840.1.340981.3.579.2.28588-64-1197Flilfnu80099318 2.840.1.698658.3.579.2.254507-52-0119Ycjteae78260931 2.0.1.060549.3.579.2.771135-83-4668Wlzxrad04356874 2.0.1.815948.3.579.2.105152-50-2755Kegbhej8526390 2.840.1.406503.3.579.2.928161-32-1714Cgtlbbo6266800 2.0.1.830938.3.579.2.342827-12-9807Pgrjmfm7387630 2..1.173110.3.579.2.223200-07-5500Bflagwr8669779 2.0.1.286231.3.579.2.809251-63-7945Wgtsvsy0576404 2.840.1.975541.3.579.2.128343-75-1968Tpmlisq8499614 2.840.1.170750.3.579.2.579337-38-7918Qeeioja26031251 2..840.1.259810.3.579.2.89601-18-5014Tzsvcme01910706 2..840.1.452423.3.579.2.66880-02-3203Odvazxe754778349 2.16.840.1.920135.3.579.2.25531-26-1202Okeihia706732391 2..840.1.192550.3.579.2.28154-73-2287Ghmbujt060565112 2..840.1.157245.3.579.2.20594-23-3790Yzfeyya390756464 2..840.1.518536.3.579.2.00531-64-7357Mesltbd619371816 2..0.1.999255.3.579.2.10891-13-5767Jvwejkr006906845 2..840.1.629274.3.579.2.92232-05-9757Gpcjpja034590257 2..840.1.428177.3.579.2.196 [id number] 1960Private Health [id number] 2.0.1.512991.19 [id number] [id number] Health InsuranceMercy Health St. Vincent Medical [id number] Auto/[id number]-[id number] Social History DateTypeDetailFacilityStart: 02-17-2014 End: 97-41-0221Fyrarhw smoking status NHISCurrent every day smokerCleveland Clinic Hillcrest Hospital: 49-95-8231Rvtmcou of tobacco useCigarette SmokerC[facility] Clinic Hillcrest [facility]: 02-17-2014 End: 45-28-6732Dsjjnqrctg smoked current (pack per day) - ReportedCleveland Clinic Hillcrest Hospital: 18-54-7237Syzkyjt intakeCurrent drinker of alcohol (finding)[facility]: 14-56-1568Poqmgfk CommentRareMOhio Valley Surgical Hospital: 63-53-2181Slf Assigned At BirthNot on fileBoynton Beach, KYExposure to SARS-CoV-2 (event)Unable to assessC[facility] Clinic Hillcrest Hospital: 25-11-9412Qlfwwzy smoking statusSmoker (finding)[facility] start: 07-10-2023 End: 03-90-4029Dsa Assigned At BirthFemaleExec[facility] start: 11-15-2022 End: 86-63-9201Kpqcbvj smoking statusHeavy tobacco smoker (finding)[facility]: 07-10-2023 End: 04-05-6801Mqkwrcs use and exposureSmokeless tobacco non-userNOMS Healthcare Start: 07-10-2023 End: 67-58-4990Czwntzz intakeLifetime non-drinker (finding)[facility] HealthcareWithin the last year, have you been afraid of your partner or ex-partner?NoNOMS HealthcareDo you belong to any clubs or organizations such as yarsani groups, unions, fraternal or athletic groups, or school groups?YesNOMS HealthcareAre you now , , , , never or living with a partner?MarriedNOMS HealthcareHow often to you have a drink containing alcohol? Monthly or lessNOMS HealthcareHow many standard drinks containing alcohol do you have on a typical day?1 or 2NOMS HealthcareHow often do you have 6 or more drinks on 1 occasion?Less than monthlyNOMS HealthcareStart: 60-66-5983Cyc hard is it for you to pay for the very basics like food, housing, medical care, and heatingNot hard at allMOUNTAIN [facility]IEW [facility]OS[facility]ITAL HealthcareDo you feel stress - tense, restless, nervous, or anxious, or unable to sleep at night because yourmind is troubled all the time - these days [OSQ]Only a littleNOMS Healthcare(I/We) worried whether (my/our) food would run out before (I/we) got money to buy more.Never trueNOMS HealthcareHow often do you have 6 or more drinks on 1 occasion?Never N[facility] HealthcareHow often do you need to have someone help you when you read instructions, pamphlets, or other written material from your doctor or pharmacy [SILS]RarelyNOMS HealthcareSexFemale (finding)[facility] Start: 82-41-7489Mfn [facility] At [facility] CenterNEGATED: Highlighted [facility] Medical Equipment Procedure CodeEquipment CodeEquipment Original TextEquipment IdentifierDates [id number]: 79-91-1891WDY TO TEST BLOOD SUGAR 4 TIMES [id number]: 07-07-2024 Functional Status RvfnZikknwfzmmBiiwmlMitlfxrn25-81-4205Dbxfazc Health Questionnaire 2 item (PHQ- 2) [Reported][facility] MedicineFhakcyylxi85-17-5200Vznclhx falling or staying asleep, or sleeping too muchNot at all 01/26/2025 4:13 PM EDT Mychart, Generic Not at all [facility] MedicinePpqyxeguhj49-90-4725Ayntdfp tired or having little energyNot at all 01/26/2025 4:13 PM EDT Mychart, Generic Not at allFreeman Orthopaedics & Sports MedicineBjgpyjsfvt68-08-8058Sgav appetite or overeatingNot at all 01/26/2025 4:13 PM EDT Mychart, Generic Not at [facility] CenterMzsldnjrdw51-44-8035Jmsfoei bad about yourself-or that you are a failure or have let yourself or your family downNot at all 01/26/2025 4:13 PM EDT Mychart, Generic Not at allFreeman Orthopaedics & Sports MedicineFwxecntmvp13-24-4357Tgwnoev concentrating on things, such as reading the newspaper or watching televisionNot at all 01/26/2025 4:13 PM EDT Mychart, Generic Not at allFreeman Orthopaedics & Sports MedicineJvniggtxqy91-38-3883 Moving or speaking so slowly that other people could have noticed. Or the opposite - being so fidgety or restless that you have been moving around a lot more than usualNot at all 01/26/2025 4:13 PM EDT Mychart, Generic Not at allFreeman Orthopaedics & Sports MedicineSwwofbpyst84-37-2764Ykuwytdc that you would be better off , or of hurting yourself in some wayNot at all 01/26/2025 4:13 PM EDT Mychart, Generic Not at allFreeman Orthopaedics & Sports MedicinePwbtyvedsk09-09-5744Dpnsy score [AUDIT-C]1 08/26/2024 6:13 PM EST Mychart, GenericFreeman Orthopaedics & Sports MedicineCiujgvhfnt84-08-8015Fvm often do you have a drink containing alcohol?Monthly or less 08/26/2024 6:13 PM EST Mychart, Generic Monthly or [facility] ChildrenEcaoiiwxre02-22-9330Bkr many standard drinks containing alcohol do you have on a typical day?1 or 2 08/26/2024 6:13 PM EST Mychart, Generic 1 or 2NOMS Pvfmgddafu62-08-7296Yni often do you have 6 or more drinks on 1 occasion?Never 08/26/2024 6:13 PM EST Mychart, Generic [facility] 50-13-9577Gvlywppebr StatusN/AExec[facility] of [facility]07-11-2024How difficult have these problems made it for you to do your work, take care of things at home, or get along with other people?Not difficult at all 01/17/2024 10:08 AM Marilyn Dunbar MA Not difficult at [facility] CenterIqchxeldxy49-12-5382Zksvbsr Health Questionnaire 2 item (PHQ-2) [Reported][facility] MedicineXpvmzhppls46-96-1800Mtxoqrb Health Questionnaire 2 item (PHQ-2) [Reported][facility] MedicineCrhuxndcsi20-13-4332Buzzwlwkmt StatusN/AExec[facility] of [facility]08-01-2022Functional StatusN/AExec[facility] Clinical Notes 01-19-2022 to 04-06-2025 Note Date & SfvlZscfKhytdpgp58-55-3450 Evaluation note* Diagnosis Onset Date Resolution Status Admit Date [...] use ofacuteOctober 2024 5:50pmVenous insufficiencyacuteOctober 2024 5:50pm [facility] Work Phone: 1(911) 878-171107-30-2025 NotePlease let her know her ECHO showed some improvement in the left side wall thickness, it was severely enlarged, now it is moderate. Important for good BP control to continue to improve this. Everything else looks good. Follow-up as planned in 6 months. Thanks![facility] History of Present illness Narrative* Rain Souza MD - 01/29/2025 9:40 AM [...] 96, on lantus 58 units bid, lispro 9-93-25fkfqt plus ISS, Trulicity 4.5 mg weekly. meter give us error during download IM 03/2022 follow up visit on 03/14/2022, A1c in the office 9.4, bg 142, on lantus 58 units bid, lispro 6-91-39ajffj plus ISS, Trulicity 4.5 mg weekly. lab [...] 25 mg, Oral, 2 times daily HYDROcodone-acetaminophen ([place]) 5-325 MG tablet 1 tablet, 3 times [...] 09/17/2023 Angiomyolipoma Anxiety and depression 07/10/2023 Asthma ([facility]) 07/10/2023 Body mass index (BMI) 50.0-59.9, adult ([facility] Cellulitis of left lower extremity Cervical cancer ([facility]) 09/17/2023 Chronic pain of both knees 09/17/2023 COPD (chronic obstructive pulmonary disease) ([facility]) 07/10/2023 COPD exacerbation ([facility]) 09/17/2023 Decreased functional mobility 09/17/2023 Diabetic neuropathy ([facility]) 07/10/2023 Dietary counseling and surveillance Edema 07/10/2023 Elevated sed rate Elevated WBC count Essential (primary) hypertension GERD (gastroesophageal reflux disease) 09/17/2023 Hyperlipidemia 09/17/2023 Hypertension 07/10/2023 Insomnia 09/17/2023 detention (current) use of insulin ([facility]) Lower extremity edema 09/17/2023 Mixed hyperlipidemia Morbid (severe) obesity due to excess calories ([facility] Obstructive sleep apnea 07/10/2023 PAD (peripheral artery disease) 09/17/2023 Pancreatitis ([facility]) 09/17/2023 Pneumonia 09/17/2023 Proteinuria, unspecified Pulmonary hypertension ([facility]) 09/17/2023 Radiculopathy, lumbar region 09/17/2023 Tobacco user 09/17/2023 Type 2 diabetes mellitus with complication, with long-term current use of insulin ([facility]) 07/10/2023 Unilateral primary osteoarthritis, right hip [...] D deficiency Primary hypertension Insulin long-term use ([facility]) Hyperlipemia, mixed Microalbuminuria Class 3 severe obesity due to excess calories with serious comorbidity and body mass index (BMI) of50.0 to 59.9 in adult ([facility] Diet and exercise reviewed with the patient Follow up in about 4 months (around 06/01/2025). documented in this encounterFreeman Orthopaedics & Sports MedicineNlhnramvyu82-84-7045 History of Present illness Narrative* Mckayla Blas NP - 01/26/2025 6:46 PM EDTAssociated Problem(s): Anxiety and depression Current meds: elavil, duloxtine, * Mckayla Blas NP - 01/26/2025 6:46 PM EDTAssociated Problem(s): Morbid (severe) obesity due to excess calories ([facility]) Discussed with patient their BMI [...] Asthma (HCC) Current meds: albuterol, duoneb, Has shake cutter 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 * Mckayla Blas NP [...] 25 mg, Oral, 2 times daily HYDROcodone-acetaminophen ([place]) 5-325 MG tablet 1 tablet, 3 times [...] 09/17/2023 Angiomyolipoma Anxiety and depression 07/10/2023 Asthma ([facility]) 07/10/2023 Body mass index (BMI) 50.0-59.9, adult ([facility] Cellulitis of left lower extremity Cervical cancer ([facility]) 09/17/2023 Chronic pain of both knees 09/17/2023 COPD (chronic obstructive pulmonary disease) ([facility]) 07/10/2023 COPD exacerbation ([facility]) 09/17/2023 Decreased functional mobility 09/17/2023 Diabetic neuropathy ([facility]) 07/10/2023 Dietary counseling and surveillance Edema 07/10/2023 Elevated sed rate Elevated WBC count Essential (primary) hypertension GERD (gastroesophageal reflux disease) 09/17/2023 Hyperlipidemia 09/17/2023 Hypertension 07/10/2023 Insomnia 09/17/2023 detention (current) use of insulin ([facility]) Lower extremity edema 09/17/2023 Mixed hyperlipidemia Morbid (severe) obesity due to excess calories ([facility]) Obstructive sleep apnea 07/10/2023 PAD (peripheral artery disease) 09/17/2023 Pancreatitis ([facility]) 09/17/2023 Pneumonia 09/17/2023 Proteinuria, unspecified Pulmonary hypertension ([facility]) 09/17/2023 Radiculopathy, lumbar region 09/17/2023 Tobacco user 09/17/2023 Type 2 diabetes mellitus with complication, with long-term current use of insulin ([facility]) 07/10/2023 Unilateral primary osteoarthritis, right hip [...] is 7.4%!!! COPD (chronic obstructive pulmonary disease) (HCC) Follows with samsa Needs smoking cessation Current meds: duoneb, albuterol, daliresp, Asthma ([facility]) Current meds: albuterol, duoneb, Has shake cutter 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 Hypertension Please check blood pressure daily and record DASH diet Limit caffeine Take medication as directed Contact office if chest pain, pressure, dizziness, shortness of breath, swelling legs Recommend slow position changes Current meds: hydralazine, lisinopril, Relevant Medications hydrALAZINE (Apresoline) 25 MG tablet lisinopril 20 MG tablet Type 2 diabetes mellitus with complication, with long-term current use of insulin ([facility]) Check blood sugars daily, notify if [...] MG tablet Pulmonary hypertension (HCC) Has seen [facility] Cardiology Hyperlipidemia On statin therapy [...] due to excess calories ([facility]) Discussed with patient their BMI (actual, verses [...] EDTAssociated Problem(s): Pulmonary hypertension (HCC) Has seen [facility] Cardiology * Mckayla Blas NP [...] on a yearly basis documented in this encounterFreeman Orthopaedics & Sports [id number] Instructions* Patient Instructions* Mckayla Blas NP - 01/26/2025 6:00 PM EDT Please call the [facility] to schedule your mammogram: [phone] documented in this encounterFreeman Orthopaedics & Sports [id number] NoteCardiovascular Medicine [facility] SUBJECTIVE Chief Complaint Patient presents with Congestive Heart Failure Hypertension Hyperlipidemia Mitzi Macias is a 54 y.o. female here for follow-up. PMHx: HFpEF, HTN, HLD, DM, longstanding heavy smoker, COPD, DANIEL, morbid obesity HPI 01/06/2025 Since last seen she was admitted to [facility] for AMS on 12/05/2024. 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 Vitamin D deficiency, unspecified Vitamin deficiency Past Medical History: Diagnosis Date COPD (chronic obstructive pulmonary disease) ([facility]) Diabetes mellitus ([facility]) Hyperlipidemia Hypertension Sleep apnea Family History [...] , Rfl: ergocalciferol (Vitamin D-2) 1.25 MG (41993 Units) capsule, Take 1.25 mg by mouth., [...] and at bedtime., Disp: , Rfl: HYDROcodone-acetaminophen ([place]) 5-325 mg tablet, TAKE 1 TABLET BY MOUTH THREE TIMES A DAY NEEDED FOR PAIN MUST LAST 30 DAYS, Disp: , Rfl: insulin aspart (NovoLOG) 100 unit/mL (3 mL) injection pen, Novolog Flexpen U-100 Insulin aspart 100 unit/mL (3 mL) subcutaneous, Disp: , Rfl: insulin glargine (Lantus Solostar U-100 Insulin) 100 unit/mL (3 mL) injection pen (more content not included)...[facility]07[facility] NotePatient is here today for a 6 month [...] and weight gain. Cardiovascular: Positive for leg swelling.[facility] 12-09-2024 History of Present illness Narrative* Mckayla Blas NP - 12/09/2024 11:27 AM EDTAssociated Problem(s): Cellulitis of left lower extremity Finish atbs Keep appt with wound care A febrile Will call me if worsening in sxs * MARILYN ROLON - 12/09/2024 10:00 AM EDT Pt [...] bad light. She was ultimately taken to [facility] ER, no tox screen was [...] 25 mg, Oral, 2 times daily HYDROcodone-acetaminophen ([place]) 5-325 MG tablet 1 tablet, 3 times [...] Angiomyolipoma Anxiety and depression ([facility]) 07/10/2023 Asthma 07/10/2023 Body mass index (BMI) 50.0-59.9, adult ([facility]) Cellulitis of left lower extremity Cervical cancer ([facility]) 09/17/2023 Chronic pain of both knees 09/17/2023 COPD (chronic obstructive pulmonary disease) ([facility]) 07/10/2023 COPD exacerbation ([facility]) 09/17/2023 Decreased functional mobility 09/17/2023 Diabetic neuropathy ([facility]) 07/10/2023 Dietary counseling and surveillance Edema 07/10/2023 Elevated sed rate Elevated WBC count Essential (primary) hypertension ([facility]) GERD (gastroesophageal reflux disease) 09/17/2023 Hyperlipidemia ([facility]) 09/17/2023 Hypertension ([facility]) 07/10/2023 Insomnia 09/17/2023 detention (current) use of insulin ([facility]) Lower extremity edema 09/17/2023 Mixed hyperlipidemia ([facility]) Morbid (severe) obesity due to excess calories ([facility]) Obstructive sleep apnea 07/10/2023 PAD (peripheral artery disease) ([facility]) 09/17/2023 Pancreatitis 09/17/2023 Pneumonia 09/17/2023 Proteinuria, unspecified Pulmonary hypertension ([facility]) 09/17/2023 Radiculopathy, lumbar region 09/17/2023 Tobacco user 09/17/2023 Type 2 diabetes mellitus with complication, with long-term current use of insulin ([facility]) 07/10/2023 Unilateral primary osteoarthritis, right hip [...] Addressed This Visit Hypertension ([facility]) Please check blood pressure daily and record DASH diet Limit caffeine Take medication as directed Contact office if chest pain, pressure, dizziness, shortness of breath, swelling legs Recommend slow position changes Current meds: hydralazine, lisinopril, Type 2 diabetes mellitus with complication, with long-term current use of insulin ([facility]) Check blood sugars daily, notify if [...] secondary to her steroids Anxiety and depression ([facility]) Current meds: elavil, duloxtine, COPD exacerbation ([facility]) Recent ER visit for unresponsiveness , found to have fever and elevated WBC Sent home with steroids and atb Breathing is better and she feels back to her normal baseline Does have home O2, she is not wearing this today Pulmonary hypertension ([facility]) Has seen [facility] Cardiology Morbid (severe) obesity due to excess calories ([facility]) Discussed with patient their BMI (actual, [...] EDTAssociated Problem(s): Pulmonary hypertension (CMS/HCC) Has seen [facility] Cardiology * Mckayla Blas NP [...] not wearing this today documented in this encounterFreeman Orthopaedics & Sports [id number] Instructions* Patient Instructions* Mckayla Blas NP - 12/09/2024 10:00 AM EDT Keep appt with wound care today Keep fu with me, sooner if needed documented in this encounterFreeman Orthopaedics & Sports [id number] History of Present illness Narrative* Mckayla Blas NP - 10/27/2024 2:39 PM EDTAssociated Problem(s): Venous ulcer of right leg (CMS/HCC) Continue with wound care and management of wound, currently they are using dakins Wound is improving * Mckayla Blas NP - 10/27/2024 2:38 PM EDTAssociated Problem(s): GERD (gastroesophageal reflux disease) Recommendations: freq small meals, nothing to eat or drink at least 2 hours prior to bed, limit caffeine, alcohol, as well as spicy foods Meds to limit or avoid if possible: NSAIDS Elevate HOB if possible Current med: PPI * Mckayla Blas NP - 10/27/2024 2:38 PM EDTAssociated Problem(s): PAD (peripheral artery disease) (CMS/HCC) Asa, statin Quit smoking BP and DM control * Mckayla Blas NP - 10/27/2024 2:00 PM EDT Images from the original note were not included. Mitzi Macias is a 54 y.o. female presents with chief complaint of No chief complaint on file. HPI: Hypertension This is a chronic problem. The problem is unchanged. The problem is controlled. Associated symptomsinclude peripheral edema and shortness of breath. Pertinent negatives include no blurred vision, chest pain, headaches or palpitations. There are no associated agents to hypertension. Risk factors for coronary artery disease include diabetes mellitus, dyslipidemia, obesity, sedentary lifestyle and smoking/tobacco exposure. Past treatments include direct vasodilators, TILA inhibitors and diuretics.The current treatment provides significant improvement. There are [...] 25 mg, Oral, 2 times daily HYDROcodone-acetaminophen ([place]) 5-325 MG tablet 1 tablet, 3 times [...] Angiomyolipoma Anxiety and depression ([facility]) 07/10/2023 Asthma 07/10/2023 Body mass index (BMI) 50.0-59.9, adult ([facility]) Cellulitis of left lower extremity Cervical cancer ([facility]) 09/17/2023 Chronic pain of both knees 09/17/2023 COPD (chronic obstructive pulmonary disease) ([facility]) 07/10/2023 COPD exacerbation ([facility]) 09/17/2023 Decreased functional mobility 09/17/2023 Diabetic neuropathy ([facility]) 07/10/2023 Dietary counseling and surveillance Edema 07/10/2023 Elevated sed rate Elevated WBC count Essential (primary) hypertension ([facility]) GERD (gastroesophageal reflux disease) 09/17/2023 Hyperlipidemia ([facility]) 09/17/2023 Hypertension ([facility]) 07/10/2023 Insomnia 09/17/2023 detention (current) use of insulin ([facility]) Lower extremity edema 09/17/2023 Mixed hyperlipidemia ([facility]) Morbid (severe) obesity due to excess calories ([facility]) Obstructive sleep apnea 07/10/2023 PAD (peripheral artery disease) ([facility]) 09/17/2023 Pancreatitis 09/17/2023 Pneumonia 09/17/2023 Proteinuria, unspecified Pulmonary hypertension ([facility]) 09/17/2023 Radiculopathy, lumbar region 09/17/2023 Tobacco user 09/17/2023 Type 2 diabetes mellitus with complication, with long-term current use of insulin ([facility]) 07/10/2023 Unilateral primary osteoarthritis, right hip [...] List Items Addressed This Visit Diabetic neuropathy (CMS/[facility]) - Primary Continue with cintia hudson mgmt is prescribing OARRS reviewed Fu in 3 months Goal: tighter glucose control, this has been improving, latest A1c is 7.4%!!! Hypertension ([facility]) Please check blood pressure daily and record DASH diet Limit caffeine Take medication as directed Contact office if chest pain, pressure, dizziness, shortness of breath, swelling legs Recommend slow position changes Current meds: hydralazine, lisinopril, Relevant Medications hydrALAZINE (Apresoline) 25 MG tablet lisinopril 20 MG tablet Type 2 diabetes mellitus with complication, with long-term current use of insulin ([facility]) Check blood sugars daily, notify if [...] 81 MG chewable tablet Anxiety and depression ([facility]) Current meds: elavil, duloxtine, Relevant Medications DULoxetine (Cymbalta) [address] capsule Bilateral lower extremity edema Limit sodium , elevate legs, furosemide Relevant Medications furosemide (Lasix) 20 MG tablet potassium chloride ER (Micro-K) 10 MEQ ER capsule furosemide (Lasix) 40 MG tablet Insomnia Relevant Medications amitriptyline (Elavil) 25 MG tablet PAD (peripheral artery disease) ([facility]) Asa, statin Quit smoking BP and [...] Relevant Medications ergocalciferol (Vitamin D2) 1.25 MG (20127 UT) capsule Gastro-esophageal reflux disease without esophagitis Relevant Medications omeprazole (PriLOSEC) [address] capsule Other Visit Diagnoses Type 2 diabetes mellitus with unspecified complications Relevant Medications dapagliflozin (Farxiga) 10 MG * Mckayla Blas NP - 10/27/2024 7:09 AM EDTAssociated Problem(s): Cigarette nicotine dependence without complication Is currently using chantix, and is doing well, less desire, smoking less * Mckayla Blas NP - 10/27/2024 7:09 AM EDTAssociated Problem(s): Anxiety and depression (CMS/HCC) Current meds: elavil, duloxtine, * Mckayla Blas NP - 10/27/2024 7:08 AM EDTAssociated Problem(s): Type 2 diabetes mellitus with complication, with long-term current use of insulin ([facility]) Check blood sugars daily, notify if [...] Most recent A1c is 7.2% on 10/08/2024 * Mckayla Blas NP - 10/27/2024 7:07 AM EDTAssociated Problem(s): Morbid (severe) obesity due to excess calories ([facility]) Discussed with patient their BMI (actual, [...] for DM * Mckayla Blas NP - 10/27/2024 7:07 AM EDTAssociated Problem(s): Bilateral lower extremity edema Limit sodium , elevate legs, furosemide * Mckayla Blas NP - 10/27/2024 7:07 AM EDTAssociated Problem(s): Chronic diastolic heart failure (CMS/HCC) Current meds; asa, farxiga, lasix, hydralazine, lisinopril, Follows with cardilogy Reviewed 08/02 notes * Mckayla Blas NP - 10/27/2024 7:07 AM EDTAssociated Problem(s): Hypertension (CMS/HCC) Please check blood pressure daily and record DASH diet Limit caffeine Take medication as directed Contact office if chest pain, pressure, dizziness, shortness of breath, swelling legs Recommend slow position changes Current meds: hydralazine, lisinopril, * Mckayla Blas NP - 10/27/2024 7:06 AM EDTAssociated Problem(s): COPD (chronic obstructive pulmonary disease) (CMS/HCC) Follows with verena Needs smoking cessation Current meds: duoneb, albuterol, daliresp, * Mckayla Blas NP - 10/27/2024 7:06 AM EDTAssociated Problem(s): Diabetic neuropathy (CMS/HCC) Continue with cintia hudson is prescribing OARRS reviewed Fu in 3 months Goal: tighter glucose control, this has been improving, latest A1c is 7.4%!!! documented in this encounterJames [place]ille [id number] Instructions* Patient Instructions* Mckayla Blas NP - 10/27/2024 2:00 PM EDT No dose changes in meds You will be due for mammogram I will send order to [facility], they should call you to schedule If no call, please call [phone] ext [phone] documented in this encounterJames [place]ille [id number] History of Present illness Narrative* Rain Souza MD - 10/08/2024 11:20 AM EDT Images from the original [...] 96, on lantus 58 units bid, lispro [id number] plus ISS, Trulicity 4.5 mg weekly. meter give us error during download IM 03/2022 follow up visit on 03/14/2022, A1c in the office 9.4, bg 142, on lantus 58 units bid, lispro [id number] plus ISS, Trulicity 4.5 mg weekly. lab [...] or chew. ergocalciferol (Vitamin D2) 1.25 MG (21020 UT) capsule TAKE 1 CAPSULE BY MOUTH [...] 25 mg, Oral, 2 times daily HYDROcodone-acetaminophen ([place]) 5-325 MG tablet 1 tablet, 3 times [...] Angiomyolipoma Anxiety and depression ([facility]) 07/10/2023 Asthma ([facility]) 07/10/2023 Body mass index (BMI) 50.0-59.9, adult ([facility]) Cellulitis of left lower extremity Cervical cancer ([facility]) 09/17/2023 Chronic pain of both knees 09/17/2023 COPD (chronic obstructive pulmonary disease) ([facility]) 07/10/2023 COPD exacerbation ([facility]) 09/17/2023 Decreased functional mobility 09/17/2023 Diabetic neuropathy ([facility]) 07/10/2023 Dietary counseling and surveillance Edema 07/10/2023 Elevated sed rate Elevated WBC count Essential (primary) hypertension ([facility]) GERD (gastroesophageal reflux disease) 09/17/2023 Hyperlipidemia ([facility]) 09/17/2023 Hypertension ([facility]) 07/10/2023 Insomnia 09/17/2023 detention (current) use of insulin ([facility]) Lower extremity edema 09/17/2023 Mixed hyperlipidemia ([facility]) Morbid (severe) obesity due to excess [...] current use of insulin ([facility]) - POCT glucose manually resulted - [...] index (BMI) of50.0 to 59.9 in adult Diet and exercise reviewed with the patient Follow up in about 4 months (around 02/07/2025). documented in this encounterFreeman Orthopaedics & Sports [id number] History of Present illness Narrative* Mckayla Blas NP - 08/27/2024 7:08 PM ESTAssociated Problem(s): Venous ulcer of right leg (CMS/HCC) Continue with wound for treatment Had recent med added Discussed need for tight glucose control as well as QUITTING SMOKING Failure to do so can result in amputation * MARILYN ROLON - 08/27/2024 5:30 PM EST Pt on has been on 30days of [...] 90. Glucose is running 160s as fasting * Mckayla Blas NP - 08/27/2024 5:30 PM EST Images from the original note were not [...] lifestyle and smoking/tobacco exposure. Past treatments include ACEinhibitors. The current treatment provides significant improvement. There are no compliance problems. Hypertensive end- organ damage includes kidney disease and PVD. Nicotine [...] or chew. ergocalciferol (Vitamin D2) 1.25 MG (66938 UT) capsule TAKE 1 CAPSULE BY MOUTH [...] 25 mg, Oral, 2 times daily HYDROcodone-acetaminophen ([place]) 5-325 MG tablet 1 tablet, 3 times [...] [facility] [place] 07/10/2023 Insomnia 09/17/2023 detention (current) use of insulin ([facility]) Lower extremity edema 09/17/2023 Mixed hyperlipidemia ([facility]) Morbid (severe) obesity due to excess calories ([facility]) Obstructive sleep apnea 07/10/2023 PAD (peripheral artery disease) ([facility]) 09/17/2023 Pancreatitis 09/17/2023 Pneumonia 09/17/2023 Proteinuria, unspecified Pulmonary hypertension ([facility]) 09/17/2023 Radiculopathy, lumbar region 09/17/2023 Tobacco [...] This Visit Diabetic neuropathy ([facility]) Continue with cintia hudson mgmt is prescribing OARRS reviewed Fu in 3 months Goal: tighter glucose control Hypertension ([facility]) Please check blood pressure daily and [...] current use of insulin ([facility]) Check blood sugars daily, notify if [...] ratio Anxiety and depression ([facility]) - Primary Current meds: elavil, duloxtine, [...] PPI Malignant neoplasm of cervix uteri, unspecified ([facility]) Had in the past, had hysterectomy Tobacco user The patient has been advised of the risks of continued smoking: stroke, [place], all forms of cancer, lung disease, and [...] Relevant Orders Lipid panel Hepatic function panel * Mckayla Blas NP - 08/27/2024 7:36 AM ESTAssociated Problem(s): Hyperlipidemia (CMS/HCC) On statin therapy Check labs yearly and prn dose changes * Mckayla Blas NP - 08/27/2024 7:36 AM ESTAssociated Problem(s): Tobacco user The patient has been advised of the risks of continued smoking: stroke, [place], all forms of cancer, lung disease, and . Options for quitting smoking include: cold turkey, hypnosis, acupuncture, nicotine replacement meds(gum, lozenges, and patches), Buproprion, and Varenicline. At this time pt is encouraged to evaluate their goals for wanting to quit smoking, and reach out toprovider when ready to start this process Willing to trial nicotine patches * Mckayla Blas NP - 08/27/2024 7:36 AM ESTAssociated Problem(s): Anxiety and depression (CMS/HCC) Current meds: elavil, duloxtine, PHQ 9= 5 IRENE 7=3 Current meds: TCA, and duloxetine * Mckayla Blas NP - 08/27/2024 7:35 AM ESTAssociated Problem(s): Type 2 diabetes mellitus with complication, [...] Most recent A1c is 9.2% on 05/27/24 * Mckayla Blas NP - 08/27/2024 7:34 AM ESTAssociated Problem(s): Morbid (severe) obesity due to excess [...] for DM * Mckayla Blas NP - 08/27/2024 7:34 AM ESTAssociated Problem(s): Bilateral lower extremity edema Limit sodium , elevate legs, furosemide * Mckayla Blas NP - 08/27/2024 7:33 AM ESTAssociated Problem(s): Malignant neoplasm of cervix uteri, unspecified (CMS/HCC) Had in the past, had hysterectomy * Mckayla Blas NP - 08/27/2024 7:32 AM ESTAssociated Problem(s): GERD (gastroesophageal reflux disease) Recommendations: freq small meals, nothing to eat or drink at least 2 hours prior to bed, limit caffeine, alcohol, as well as spicy foods Meds to limit or avoid if possible: NSAIDS Elevate HOB if possible Current med: PPI * Mckayla Blas NP - 08/27/2024 7:32 AM ESTAssociated Problem(s): Idiopathic chronic venous hypertension of both lower extremities with ulcer (CMS/HCC) Follows with wound, legs are wrapped, 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 as possible * Mckayla Blas NP - 08/27/2024 7:32 AM ESTAssociated Problem(s): Hypertension (CMS/HCC) Please check blood pressure daily and record DASH diet Limit caffeine Take medication as directed Contact office if chest pain, pressure, dizziness, shortness of breath, swelling legs Recommend slow position changes Current meds: hydralazine, lisinopril, * Mckayla Blas NP - 08/27/2024 7:32 AM ESTAssociated Problem(s): Chronic diastolic heart failure (CMS/HCC) Current meds; asa, farxiga, lasix, hydralazine, lisinopril, Follows with cardilogy Reviewed 08/02 notes * Mckayla Blas NP - 08/27/2024 7:31 AM ESTAssociated Problem(s): COPD (chronic obstructive pulmonary disease) (CMS/HCC) Follows with samsa Needs smoking cessation Current meds: duoneb, albuterol, daliresp, * Mckayla Blas NP - 08/27/2024 7:30 AM ESTAssociated Problem(s): Asthma (CMS/HCC) Current meds: albuterol, duoneb, Has shake cutter 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 * Mckayla Blas NP - 08/27/2024 7:29 AM ESTAssociated Problem(s): Obstructive sleep apnea You have a [...] with them so she can do this * Mckayla Blas NP - 08/27/2024 7:28 AM ESTAssociated Problem(s): Diabetic neuropathy (CMS/HCC) Continue with cintia hudson is prescribing OARRS reviewed Fu in 3 months Goal: tighter glucose control documented in this encounterFreeman Orthopaedics & Sports [id number] NoteUT Cardiology - [facility] Subjective Mitzi Macias is a 53 y.o. year old female patient being seen for follow-up on diastolic heart failure, shortness of breath and hypertension Patient Active Problem List Diagnosis Abdominal pannus Adrenal mass 1 cm to 4 cm in diameter ([facility]) Albuminuria RAGHU positive Anxiety and depression Arthritis Asthma Bilateral lower extremity edema BMI 50.0-59.9, adult ([facility]) Candidiasis of breast Cardiomegaly Cervical cancer ([facility]) Chronic pain of both knees Closed fracture of upper end of humerus Acute respiratory distress syndrome ([facility]) Decreased functional mobility Diabetic neuropathy ([facility]) Easy bruising GERD (gastroesophageal reflux disease) Gout Headache Hyperlipidemia Hypertension Insomnia Kidney stone Left flank pain Mixed incontinence Class 3 severe obesity with serious comorbidity and body mass index (BMI) of 50.0 to 59.9 in adult ([facility]) Non-seasonal allergic rhinitis Obstructive sleep apnea Other chronic pain PAD (peripheral artery disease) ([facility]) Pneumonia Encounter for screening mammogram for malignant neoplasm of breast Pulmonary hypertension ([facility]) Radiculopathy, lumbar region Current smoker Type 2 diabetes mellitus with complication, with long-term current use of insulin ([facility]) Unilateral primary osteoarthritis, right hip Vaginal yeast infection Venous insufficiency Bad odor of urine Critical limb ischemia of right lower extremity ([facility] [facility] Hyperpigmentation of skin 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 2 diabetes mellitus ([facility]) Myelolipoma of adrenal gland Venous ulcer of right leg ([facility]) HPI Patient was has history of [...] (chronic obstructive pulmonary disease) ([facility]) Diabetes mellitus ([facility]) Hyperlipidemia Hypertension Sleep apnea Past Surgical [...] , Rfl: ergocalciferol (Vitamin D-2) 1.25 MG (73472 Units) capsule, Take 1.25 mg by mouth., [...] and at bedtime., Disp: , Rfl: HYDROcodone-acetaminophen ([place]) 5-325 mg tablet, TAKE 1 TABLET BY [...] SUBCUTANEOUSLY TWICE DAILY, Disp: (more content not included)...[facility] History of Present illness Narrative* Mckayla Blas NP - 07/14/2024 7:36 PM ESTAssociated Problem(s): Radiculopathy, lumbar region Lumbar MRI with [...] this is necessary they take over prescribing * Mckayla Blas NP - 07/14/2024 7:33 PM ESTAssociated Problem(s): Adrenal mass 1 cm to 4 cm in diameter (CMS/HCC) Continue with Urology * Mckayla Blas NP - 07/14/2024 7:32 PM ESTAssociated Problem(s): Kidney stone Continue with Urology * Mckayla Blas NP - 07/14/2024 7:31 PM ESTAssociated Problem(s): Critical limb ischemia of right lower extremity (CMS/HCC) Saw vascular, does have narrowing in arteries in legs, and thus the wounds not healing At this point they strongly urge to quit smoking or risk limb amputation Cont asa and statin Also good blood pressure and sugar control * Mckayla Blas, PROFILE SHAPER OPERATOR - 07/14/2024 6:30 PM EST Images from the original note were not [...] or chew. ergocalciferol (Vitamin D2) 1.25 MG (24465 UT) capsule TAKE 1 CAPSULE BY MOUTH ONE TIME PER WEEK furosemide (LASIX) 40 mg, Oral, Daily furosemide (LASIX) 20 mg, Oral, Daily PRN, Take in the afternoon as needed hydrALAZINE (APRESOLINE) 25 mg, Oral, 2 times daily HYDROcodone-acetaminophen ([place]) 5-325 MG tablet 1 tablet, 3 times [...] Angiomyolipoma Anxiety and depression ([facility]) 07/10/2023 Asthma ([facility]) 07/10/2023 Body mass index (BMI) 50.0-59.9, [...] [facility] [place]) 07/10/2023 Insomnia 09/17/2023 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 She is not ill-appearing, toxic- appearing or diaphoretic. HENT: Head: Normocephalic. Right Ear: [...] This Visit Diabetic neuropathy ([facility]) Continue with lyrica OARRS reviewed Fu in 3 months COPD (chronic obstructive pulmonary disease) ([facility]) Stable at this time, no changes in meds Encouraged smoking cessation Cont with dr Yañez Hypertension ([facility]) - Primary Please check blood pressure daily and record DASH diet Limit caffeine Take medication as directed Contact office if chest pain, pressure, dizziness, shortness of breath, swelling legs Recommend slow position changes Current meds: hydralazine, lisinopril, Type 2 diabetes mellitus with complication, with long-term current use of insulin ([facility]) Check blood sugars daily, notify if [...] PAD (peripheral artery disease) ([facility]) Asa, statin Quit smoking BP and [...] of the risks of continued smoking: stroke, [place], all forms of cancer, lung disease, and [...] with pt, spent 15 minutes with pt * Mckayla Blas NP - 07/14/2024 8:22 AM ESTAssociated Problem(s): Tobacco user The patient has been advised of the risks of continued smoking: stroke, [place], all forms of cancer, lung disease, and . Options for quitting smoking include: cold turkey, hypnosis, acupuncture, nicotine replacement meds(gum, lozenges, and patches), Buproprion, and Varenicline. At this time pt is encouraged to evaluate their goals for wanting to quit smoking, and reach out toprovider when ready to start this process Willing to trial nicotine patches * Mckayla Blas NP - 07/14/2024 8:21 AM ESTAssociated Problem(s): Type 2 diabetes mellitus with complication, with long-term current use of insulin ([facility]) Check blood sugars daily, notify if [...] Most recent A1c is 9.2% on 05/27/24 * Mckayla Blas NP - 07/14/2024 8:21 AM ESTAssociated Problem(s): Bilateral lower extremity edema Stable on current meds * Mckayla Blas NP - 07/14/2024 8:20 AM ESTAssociated Problem(s): GERD (gastroesophageal reflux disease) Recommendations: freq small meals, nothing to eat or drink at least 2 hours prior to bed, limit caffeine, alcohol, as well as spicy foods Meds to limit or avoid if possible: NSAIDS Elevate HOB if possible Current med: PPI * Mckayla Blas NP - 07/14/2024 8:20 AM ESTAssociated Problem(s): PAD (peripheral artery disease) (CMS/HCC) Asa, statin Quit smoking BP and DM control * Mckayla Blas NP - 07/14/2024 8:19 AM ESTAssociated Problem(s): Hypertension (CMS/HCC) Please check blood pressure daily and record DASH diet Limit caffeine Take medication as directed Contact office if chest pain, pressure, dizziness, shortness of breath, swelling legs Recommend slow position changes Current meds: hydralazine, lisinopril, * Mckayla Blas NP - 07/14/2024 8:19 AM ESTAssociated Problem(s): COPD (chronic obstructive pulmonary disease) (CMS/HCC) Stable at this time, no changes in meds Encouraged smoking cessation Cont with dr Yañez * Mckayla Blas NP - 07/14/2024 8:18 AM ESTAssociated Problem(s): Diabetic neuropathy (CMS/HCC) Continue with tristan EAST reviewed Fu in 3 months documented in this encounterFreeman Orthopaedics & Sports [id number] Hospital Discharge instructions Patient Education 06/11/2024 10:44:08 [...] health care provider if you have any questionsor concerns. How do I get ready to [...] require a prescription. You can also purchase keps-fsu-ycdatsc medicines. Medicines may have nicotine in them [...] and encouragement. Call telephone quitlines, such as 8-620-TWNE-NOW, reach out to support groups, or work [...] provider. Document Revised: 06/16/2022 Document Reviewed: 06/16/2022 [employer] Patient Education 2023 [employer]. 06/11/2024 10:39:22 Dietary Guidelines to Help [...] about 300 mg of calcium at each meal.Foods that contain 200 500 mg of calcium a serving include: ?8 oz (237 mL) of milk, hazjabs-mapvaxhhptnw-rythr milk, and calcium- fortifiedfruit juice. Calcium-fortified means [...] the table and allow each person to addtheir own salt to taste. Use vegetable protein, such as beans, textured vegetable protein (TVP), or tofu, instead of meat inpasta, casseroles, and soups. Meal planning Eat less salt, if told by your dietitian. To do this: ?Avoid eating processed or pre-made food. ?Avoid eating fast food. Eat less animal protein, including cheese, meat, poultry, or fish, if told by your dietitian. To dothis: ?Limit the number of times you have meat, poultry, fish, or cheese each week. Eat a diet free of meat at least 2 days a week. ?Eat only one serving each day of meat, poultry, fish, or seafood. ?When you prepare animal proteins, cut pieces into small portion sizes. For most meat and fish, oneserving is about the size of the palm [...] potatoes, and Bahamian chard. ?Peanuts. ?Potato chips, lithuanian fries, and baked potatoes with skin on. ?Nuts and nut products. ?Chocolate. If you regularly take a diuretic medicine, make sure to eat at least 1 or 2 servings of fruits or vegetables that are high in potassium each day. These include: ?Avocado. ?Banana. ?Granite, prune, carrot, or tomato juice. ?Baked potato. [...] magnesium, fish oil, or vitamin B6. Take pcfi-mpq-bjhfkwl and prescription medicines only as told by [...] Casseroles. Pizza. Lasagna. Frozen meals. Potato chips. Kinyarwanda fries. The items listed above may not be a complete list of foods and beverages you should limit. Contact a dietitian for more information. What foods should I avoid? Talk to your dietitian about specific foods you should avoid based on the type of kidney stones youhave and your overall health. Fruits Grapefruit. The item listed above may not be a complete list of foods and beverages you should avoid. Contact adietitian for more information. Summary Kidney stones are [...] provider. Document Revised: 10/05/2022 Document Reviewed: 10/05/2022 Elsevier Patient Education 2023 [employer]. Follow Up Care 05/06/2024 08:24:56 With:REGLA PHIPPS, GEMA Vicente Address: [facility] [address] , [place] [address]- When: Unknown [facility]ada 12-04-2024 NotePatient Education Nephrology Dietary Guidelines to Help Prevent [...] labels. Limit your salt (sodium) intake to lessthan 1,500 mg a day. ??? Choose foods with calcium for each meal and snack. Try to eat about 300 mg of calcium at each meal. Foods that contain 200?500 mg of calcium a serving include: ? 8 oz (237 mL) of milk, djhahtt-iqfnmblduevw-xhsij milk, and calcium- fortifiedfruit juice. Calcium-fortified means [...] on the table and allow each person toadd their own salt to taste. ??? Use [...] Spinach (cooked), rhubarb, beets, sweet potatoes, and Bahamian chard. ? Peanuts. ? Potato chips, lithuanian fries, and baked potatoes with skin on. ? Nuts and nut products. ? Chocolate. ??? If you regularly take a diuretic medicine, make sure to eat at least 1 or 2 servings of fruits or vegetables that are high in potassium each day. These include: ? Avocado. ? Banana. ? Granite, prune, carrot, or tomato juice. ? Baked potato. ? Cabbage. ? Beans and split peas. Lifestyle ??? Drink enough fluid to keep your urine pale yellow. This is the most important thing you can do.Spread your fluid intake throughout the day. ??? [...] fish oil, or vitamin B6. ??? Take jjxb-qdc-bytzsdp and prescription medicines only as told by your health (more content not included)...[facility]11-19-2024 History of Present illness Narrative* Rain Souza MD - 05/27/2024 9:50 AM EST Mitzi Macias is a 53 y.o. female [...] 96, on lantus 58 units bid, lispro [id number] plus ISS, Trulicity 4.5 mg weekly. meter give us error during download IM 03/2022 follow up visit on 03/14/2022, A1c in the office 9.4, bg 142, on lantus 58 units bid, lispro 1-57-63qyhnf plus ISS, Trulicity 4.5 mg weekly. lab [...] or chew. ergocalciferol (Vitamin D2) 1.25 MG (65976 UT) capsule TAKE 1 CAPSULE BY MOUTH ONE TIME PER WEEK furosemide (LASIX) 20 mg, Oral, Daily PRN, Take in the afternoon as needed furosemide (LASIX) 40 mg, Oral, Daily Glucose Blood (ACCU-CHEK JAQUI PLUS ) 4 times daily hydrALAZINE (APRESOLINE) 25 mg, Oral, 2 times daily HYDROcodone-acetaminophen ([place]) 5-325 MG tablet 1 tablet, 3 times [...] X 42 tablet therapy pack TAKED DIRECTED [place] TWICE DAILY ALLERGIES: No Known Allergies Past [...] count GERD (gastroesophageal reflux disease) 09/17/2023 Hyperlipidemia ([facility]) 09/17/2023 Hypertension ([facility]) 07/10/2023 Insomnia 09/17/2023 detention (current) use of insulin ([facility] [...] current use of insulin ([facility]) - POCT glucose manually resulted - POCT glycosylated hemoglobin (Hb A1C) docked device We will continue with Lantus 58, lispro 02/16/12 according to meal size, Mounjaro 15 mg once weekly, Farxiga 5 mg once a day Encounter for dietary consultation Vitamin D deficiency Primary hypertension ([facility]) To follow with her PCP Insulin long-term use ([facility]) Hyperlipemia, mixed ([facility]) Continue with Zocor 10 mg once daily Microalbuminuria Class 3 severe obesity due to excess calories with serious comorbidity and body mass index (BMI) of50.0 to 59.9 in adult ([facility]) Diet and exercise reviewed with the patient Follow up in about 3 months (around 08/27/2024). documented in this encounterFreeman Orthopaedics & Sports [id number] History of Present illness Narrative* Mckayla Blas NP - 04/14/2024 11:45 AM EDTAssociated Problem(s): Hyperpigmentation of skin Will try cerevue ointment to see if helps * Mckayla Blas NP - 04/14/2024 11:43 AM EDTAssociated Problem(s): Tobacco user Urged to quit * Mckayla Blas NP - 04/14/2024 11:43 AM EDTAssociated Problem(s): Type 2 diabetes mellitus with complication, with long-term current use of insulin ([facility]) Check blood sugars daily, [...] for mgmt, and recommend diabetic eye exam * Mckayla Blas NP - 04/14/2024 11:42 AM EDTAssociated Problem(s): Bilateral lower extremity edema Stable on current meds * Mckayla Blas NP - 04/14/2024 11:42 AM EDTAssociated Problem(s): Hypertension (CMS/HCC) Stable on current meds Refill meds * Mckayla Blas NP - 04/14/2024 11:42 AM EDTAssociated Problem(s): COPD (chronic obstructive pulmonary disease) (CMS/HCC) Stable at this time, no changes in meds Encouraged smoking cessation Cont with dr Yañez * Mckayla Blas NP - 04/14/2024 11:41 AM EDTAssociated Problem(s): Diabetic neuropathy (CMS/HCC) Continue with tristan EAST reviewed Fu in 3 months * MARILYN ROLON - 04/14/2024 11:00 AM EDT Pt would like to also make this [...] spreading/getting larger in the last couple months. * Mckayla Blas NP - 04/14/2024 11:00 AM EDT Images from the original note were not included. Mitzi Macias is a 53 y.o. female presents with chief complaint of No chief complaint on file. HPI: Diabetes She presents for her follow-up diabetic visit. She has type 2 diabetes mellitus. Her disease coursehas been stable. Hypoglycemia symptoms include nervousness/anxiousness. Pertinent negatives for hypoglycemia include no dizziness, headaches, seizures or tremors. Associated symptoms include foot pare sthesias. Pertinent negatives for diabetes include no blurred vision, no chest pain, no polydipsia,no polyphagia and no polyuria. There are no [...] glucose range is 130-140 mg/dl. An TILA inhibitor /angiotensin II receptor eun is being taken. She does not see a geoscience laboratory technician.Eye exam is not current. Hypertension This is a chronic problem. The current episode started more than 1 year ago. The problem is unchanged. The problem is controlled. Associated symptoms include anxiety, peripheral edema and shortness of breath. Pertinent negatives include no blurred vision, chest pain, headaches, palpitations or PND.There are no associated agents to hypertension. Risk [...] or chew. ergocalciferol (Vitamin D2) 1.25 MG (30637 UT) capsule TAKE 1 CAPSULE BY MOUTH ONE TIME PER WEEK furosemide (LASIX) 20 mg, Oral, Daily PRN, Take in the afternoon as needed furosemide (LASIX) 40 mg, Oral, Daily Glucose Blood (ACCU-CHEK JAQUI PLUS ) 4 times daily HumaLOG KWIKPEN 100 UNIT/ML injection Subcutaneous hydrALAZINE (APRESOLINE) 25 mg, Oral, 2 times daily HYDROcodone-acetaminophen ([place]) 5-325 MG tablet 1 tablet, 3 times [...] X 42 tablet therapy pack TAKED DIRECTED BYMOUTH TWICE DAILY ALLERGIES: No Known Allergies REVIEW [...] This Visit Diabetic neuropathy ([facility]) Continue with lyrica OARRS reviewed Fu in 3 months Relevant Medications pregabalin (Lyrica) 300 MG capsule COPD (chronic obstructive pulmonary disease) ([facility]) - Primary Stable at this time, no changes in meds Encouraged smoking cessation Cont with dr Yañez Hypertension ([facility]) Stable on current meds Refill meds Relevant Medications hydrALAZINE (Apresoline) 25 MG tablet lisinopril 20 MG tablet Type 2 diabetes mellitus with complication, with long-term current use of insulin ([facility]) Check blood sugars daily, [...] Roflumilast 500 MCG tablet documented in this encounterFreeman Orthopaedics & Sports [id number] Hospital Discharge instructions Patient Education 11/15/2022 14:09:21 [...] about 300 mg of calcium at each meal.Foods that contain 200 500 mg of calcium a serving include: ?8 oz (237 mL) of milk, kcifcwf-xvzamersyldx-orwzg milk, and calcium- fortifiedfruit juice. Calcium-fortified means [...] the table and allow each person to addhis or her own salt to taste. Use vegetable protein, such as beans, textured vegetable protein (TVP), or tofu, instead of meat inpasta, casseroles, and soups. Meal planning Eat less salt, if told by your dietitian. To do this: ?Avoid eating processed or pre-made food. ?Avoid eating fast food. Eat less animal protein, including cheese, meat, poultry, or fish, if told by your dietitian. To dothis: ?Limit the number of times you have [...] potatoes, and Bahamian chard. ?Peanuts. ?Potato chips, lithuanian fries, and baked potatoes with skin on. ?Nuts and nut products. ?Chocolate. If you regularly take a diuretic medicine, make sure to eat at least 1 or 2 servings of fruits or vegetables that are high in potassium each day. These include: ?Avocado. ?Banana. ?Granite, prune, carrot, or tomato juice. ?Baked potato. [...] taking daily supplements. You may be told thefollowing depending on your health and the cause of your kidney stones: ?Not to take supplements with vitamin C. ?To take a calcium supplement. ?To take a daily probiotic supplement. ?To take other supplements such as magnesium, fish oil, or vitamin B6. Take qcop-vxu-cqzcipa and prescription medicines only as told by [...] Casseroles. Pizza. Lasagna. Frozen meals. Potato chips. Kinyarwanda fries. The items listed above may not be a complete list of foods and beverages you should limit. Contact a dietitian for more information. What foods should I avoid? Talk to your dietitian about specific foods you should avoid based on the type of kidney stones youhave and your overall health. Fruits Grapefruit. The item listed above may not be a complete list of foods and beverages you should avoid. Contact adietitian for more information. Summary Kidney stones are [...] provider. Document Revised: 03/06/2022 Document Reviewed: 03/06/2022 [employer] Patient Education 2022 [employer]. Follow Up Care 02/06/2022 11:44:09 With:GAVIOTA ADAMES PA-C, URL Address: [address] [place] [address] When: Unknown [facility] 02-16-2023 NoteCONSULTATION CONSULTATION DATE: 08/24/2022 HISTORY OF PRESENT ILLNESS: [...] We maintain her on pain medication with [place] 5/325 t.i.d., diclofenac 75 mg b.i.d. Her [...] her at this point. A refill for [place] 5/325 t.i.d. and diclofenac 75 mg b.i.d. will be sent to the pharmacy. Vitamin compliance and nutrition were discussed and enforced. I did highly encourage her to use exercise bands to increase the strength in her lower extremities. We will see her in three months' time, unless otherwise indicated, and patient agrees.[facility] [id number] NoteCONSULTATION CONSULTATION DATE: 05/11/2022 This 51-year-old female returns [...] 150. Medications include Lyrica 300 mg b.i.d., [place] 5/325 t.i.d., diclofenac 75 mg b.i.d. and [...] her medications today. We will maintain Lyrica, [place] and diclofenac at the set dose and frequency. We will follow-up in the clinic in three months' time. The patient is in agreement to this. Vitamin importance and nutrition were discussed.[facility] [id number] NoteCONSULTATION CONSULTATION DATE: 04/20/2022 HISTORY OF PRESENT ILLNESS: [...] medications include Tylenol, Lyrica 300 mg b.i.d., [place] 5/325 t.i.d., amitriptyline, diclofenac and duloxetine. Patient's [...] procedure will be followed up in the clinic.[facility] [id number] Evaluation note* Encounter Date Diagnosis Assessment Notes Treatment Notes Treatment Clinical Notes Feb, CKD (chronic kidney disease) (IC D-10 - N18.9) She has a CKD likely due to the DM and HTN. I have advised her to avoid NSAIDs. I discussed with the importance of good DM and HTN control to surround the function of CKD. I have advised her to avoidthe meloxicam and diclofenac due to the risk of NSAID induced chronic kidney disease. Feb,roteinuria (ICD-10 - R80.9)She has proteinuria likely due to diabetic kidney disease. She has unremarkable work-up for lupus, hepatitis MPGN or paraproteinemia. . Currently She takes lisinopril I will continue that. Feb,en hy kid w cr kid I-IV (ICD-10 - I12.9)Blood pressure is controlled and she appears to be euvolemic. Continue Lasix and lisinopril. 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 Souza. Advised to continue work with Dr. Pringle for better sugar control. Feb,drenal mass (ICD-10 - E27.9)Continue to follow with Dr. Souza and Dr. Arauz. Feb,Erythrocytosis (ICD-10 - D75.1)He has leukocytosis, erythrocytosis and thrombocytopenia. I discussed with her the option of the hematology referral. She would like the PCP to take care of it. Differential diagnosis of her polycythemia is likely secondary due to the DANIEL. Thrombocytopenia is unclear etiology. [employer] Other 08-15-2022 Evaluation note* Encounter Date Diagnosis Assessment Notes Treatment Notes Treatment Clinical Notes Feb, CKD (chronic kidney disease) (IC D-10 - N18.9) She has a CKD likely due to the DM and HTN. I have advised her to avoid NSAIDs. I discussed with the importance of good DM and HTN control to surround the function of CKD. Feb,roteinuria (ICD-10 - R80.9)Thanks for referring Mrs. Macias to our office for an evaluation and management of the proteinuria. As you know she has a longstanding DM and likely has a proteinuria due to diabetic kidney disease. Other differential diagnoses are lupus, hepatitis MPGN or paraproteinemia. I have ordered a work-upto rule out these differential diagnoses. Currently She takes lisinopril I will continue that. Feb,en hy kid w cr kid I-IV (ICD-10 - I12.9)Blood pressure is controlled and she appears to be euvolemic. Continue Lasix and lisinopril. 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 Souza. Advised to continue work with Dr. Pringle for better sugar control. Feb,drenal mass (ICD-10 - E27.9)Continue to follow with Dr. Souza and Dr. Arauz. [employer] Other 08-01-2022 Hospital Discharge instructions Patient Education [...] fried and sweet foods. General instructions Take bhso-zyt-xmgufrw and prescription medicines only as told by [...] 04/21/2010 Document Revised: 10/16/2019 Document Reviewed: 07/11/2018 [employer] Patient Education 2020 [employer]. Follow Up Care 01/05/2022 12:02:03 With:REGLA PHIPPS, Elbert Joya, URL Address: [facility] [address] , [place] [phone] When:Within 6 Month(s) Comments:w/ repeat CT A/P [facility] 07-14-2022 NoteCONSULTATION PROCEDURE DATE: 01/19/2022 PRE [...] pattern and the patient tolerated it well. [facility] Signed and Approved by: GIL VALENZUELA . 01/27/2022 14:15:00[facility]07-14-2022 NoteCONSULTATION CONSULTATION DATE: 01/19/2022 This is a [...] today. Medications include Lyrica 300 mg b.i.d., [place] 5/325 t.i.d., diclofenac 75 mg b.i.d. and [...] in three months' time unless otherwise indicated. IF Signed and Approved by: GIL VALENZUELA . 01/27/2022 14:15:00[facility] Future Appointments Appointment Date:08/14/2022 09:15:00 AM Scheduled Provider:Elbert ARAUZ MD Location:[facility] Appointment Type:URO Office Visit [facility] evaluation + Plan note Future Appointments Appointment Date:04/22/2024 10:00:00 AM Scheduled Provider:GAVIOTA ADAMES PA-C Location:[facility] Appointment Type:URO Office Visit [facility] evaluation note* Diagnosis Type 2 diabetes [...] with unspecified complications (CMS/HCC) Anxiety and depression ([facility]) Gastro-esophageal reflux disease without esophagitis Edema, unspecified Edema Diabetic polyneuropathy associated with type 2 diabetes mellitus ([facility]) Chronic obstructive pulmonary disease, unspecified ([facility]) Pulmonary emphysema, unspecified emphysema type ([facility]) Bilateral lower extremity edema Tobacco user Tobacco use disorder Hyperpigmentation of skin Other dyschromia documented in this encounter [facility]Evaluation [facility]* Diagnosis Obstructive sleep apnea- Primary Obstructive sleep apnea (adult) (pediatric) Pulmonary emphysema, unspecified emphysema type ([facility]) Primary hypertension ([facility]) Unspecified essential hypertension Type 2 diabetes mellitus with complication, with long-term current use of insulin ([facility]) Anxiety and depression ([facility]) Bilateral lower extremity edema Pulmonary emphysema, unspecified emphysema type ([facility])- Primary Primary hypertension ([facility]) Unspecified essential hypertension Class 3 severe obesity with serious comorbidity and body mass index (BMI) of 50.0 to 59.9 in adult,unspecified obesity type ([facility]) Obstructive sleep apnea Obstructive sleep apnea (adult) (pediatric) Pulmonary hypertension ([facility]) Other chronic pulmonary heart diseases Tobacco user Tobacco use disorder Cardiomegaly Primary hypertension ([facility])- Primary Unspecified essential hypertension Gastroesophageal reflux disease, unspecified whether esophagitis present Type 2 diabetes mellitus with complication, with long-term current use of insulin ([facility]) Mixed hyperlipidemia ([facility]) Mixed hyperlipidemia Tobacco user Tobacco use disorder Encounter for screening mammogram for malignant neoplasm of breast Chronic obstructive pulmonary disease, unspecified ([facility]) Other specified chronic obstructive pulmonary disease ([facility]) Anxiety and depression ([facility]) Edema, unspecified Edema Hyperlipidemia, unspecified ([facility]) Diabetic polyneuropathy associated with type 2 diabetes mellitus ([facility]) Gout, unspecified cause, unspecified chronicity, unspecified site Non-seasonal allergic rhinitis, unspecified trigger Bilateral lower extremity edema COPD exacerbation ([facility]) Obstructive chronic bronchitis with exacerbation Pulmonary emphysema, unspecified emphysema type ([facility]) Venous insufficiency Unspecified venous (peripheral) insufficiency Candidiasis of breast COPD exacerbation ([facility])- Primary Obstructive chronic bronchitis with exacerbation Pulmonary hypertension ([facility]) Other chronic pulmonary heart diseases Class 3 severe obesity with serious comorbidity and body mass index (BMI) of 50.0 to 59.9 in adult,unspecified obesity type (CMS/HCC) Encounter for subsequent annual [...] index (BMI) of 50.0 to 59.9 in adult,unspecified obesity type (CMS/HCC) Tobacco user Tobacco use disorder Other headache syndrome Malignant neoplasm of cervix uteri, unspecified (CMS/HCC) Other specified disorders of adrenal gland (CMS/HCC) Major depressive disorder, single episode, mild ([facility]) (CMS/[facility]) Major depressive disorder, single episode, mild Non-pressure chronic ulcer of other part of left lower leg with fat layer exposed (CMS/[facility]) Chronic respiratory failure, unspecified whether with hypoxia or hypercapnia (CMS/[facility]) Disorder of adrenal gland, unspecified (CMS/HCC) Non-pressure chronic ulcer of other part of right lower leg limited to breakdown of skin (CMS/HCC) Non-recurrent acute suppurative otitis media of left ear without spontaneous rupture of tympanic membrane Primary hypertension (CMS/[facility])- Primary Unspecified essential hypertension Insomnia Insomnia, unspecified Type 2 diabetes mellitus with complication, with long-term current use of insulin (CMS/HCC) Non-seasonal allergic rhinitis, unspecified trigger Type 2 diabetes mellitus with unspecified complications (CMS/[facility]) Anxiety and depression (CMS/[facility]) Gastro-esophageal reflux disease without esophagitis Edema, unspecified Edema Diabetic polyneuropathy associated with type 2 diabetes mellitus (CMS/HCC) Chronic obstructive pulmonary disease, unspecified (CMS/HCC) Pulmonary emphysema, unspecified emphysema type (CMS/HCC) Bilateral lower extremity edema Tobacco user Tobacco use disorder Hyperpigmentation of skin Other dyschromia Type 2 diabetes mellitus with hyperglycemia, with long-term current use of insulin (CMS/[facility])- Primary Encounter for dietary consultation Vitamin D deficiency Primary hypertension (CMS/HCC) Unspecified essential hypertension Insulin long-term use ([facility]) Encounter for long-term (current) use of insulin Hyperlipemia, mixed (CMS/HCC) Mixed hyperlipidemia Microalbuminuria Proteinuria Class 3 severe obesity due to excess calories with serious comorbidity and body mass index (BMI) of50.0 to 59.9 in adult ([facility]) documented in this encounter [facility]* Diagnosis Hyperlipidemia, unspecified ([facility]) Bilateral lower extremity edema documented in this encounter [facility]* Diagnosis Vitamin D deficiency, unspecified documented in this encounter [facility] HealthcareEvaluation note* Diagnosis Obstructive sleep apnea- Primary Obstructive sleep apnea (adult) (pediatric) Pulmonary emphysema, unspecified emphysema type ([facility]) Primary hypertension ([facility]) Unspecified essential hypertension Type 2 diabetes mellitus with complication, with long-term current use of insulin ([facility]) Anxiety and depression ([facility]) Bilateral lower extremity edema Pulmonary emphysema, unspecified emphysema type ([facility])- Primary Primary hypertension ([facility]) Unspecified essential hypertension Class 3 severe obesity with serious comorbidity and body mass index (BMI) of 50.0 to 59.9 in adult,unspecified obesity type ([facility]) Obstructive sleep apnea Obstructive sleep apnea (adult) (pediatric) Pulmonary hypertension ([facility]) Other chronic pulmonary heart diseases Tobacco user Tobacco use disorder Cardiomegaly Primary hypertension ([facility])- Primary Unspecified essential hypertension Gastroesophageal reflux disease, unspecified whether esophagitis present Type 2 diabetes mellitus with complication, with long-term current use of insulin ([facility]) Mixed hyperlipidemia ([facility]) Mixed hyperlipidemia Tobacco user Tobacco use disorder Encounter for screening mammogram for malignant neoplasm of breast Chronic obstructive pulmonary disease, unspecified ([facility]) Other specified chronic obstructive pulmonary disease ([facility]) Anxiety and depression ([facility]) Edema, unspecified Edema Hyperlipidemia, unspecified ([facility]) Diabetic polyneuropathy associated with type 2 diabetes mellitus ([facility]) Gout, unspecified cause, unspecified chronicity, unspecified site Non-seasonal allergic rhinitis, unspecified trigger Bilateral lower extremity edema COPD exacerbation ([facility]) Obstructive chronic bronchitis with exacerbation Pulmonary emphysema, unspecified emphysema type ([facility]) Venous insufficiency Unspecified venous (peripheral) insufficiency Candidiasis of breast COPD exacerbation ([facility])- Primary Obstructive chronic bronchitis with exacerbation Pulmonary hypertension ([facility]) Other chronic pulmonary heart diseases Class 3 severe obesity with serious comorbidity and body mass index (BMI) of 50.0 to 59.9 in adult,unspecified obesity type ([facility]) Encounter for subsequent annual wellness visit (AWV) in Medicare patient- Primary Type 2 diabetes mellitus with unspecified complications (CMS/HCC) Pulmonary emphysema, unspecified emphysema type (CMS/HCC) Moderate persistent asthma without complication (CMS/HCC) Primary hypertension (CMS/[facility]) Unspecified essential hypertension Type 2 diabetes mellitus with complication, with long-term current use of insulin (CMS/[facility]) Class 3 severe obesity with serious comorbidity and body mass index (BMI) of 50.0 to 59.9 in adult,unspecified obesity type (CMS/[facility]) Tobacco user Tobacco use disorder Other headache syndrome Malignant neoplasm of cervix uteri, unspecified (CMS/HCC) Other specified disorders of adrenal gland (CMS/[facility]) Major depressive disorder, single episode, mild (HCC) ([facility]) Major depressive disorder, single episode, mild Non-pressure chronic ulcer of other part of left lower leg with fat layer exposed (CMS/[facility]) Chronic respiratory failure, unspecified whether with hypoxia or hypercapnia (CMS/[facility]) Disorder of adrenal gland, unspecified (CMS/[facility]) Non-pressure chronic ulcer of other part of right lower leg limited to breakdown of skin (CMS/[facility]) Non-recurrent acute suppurative otitis media of left ear without spontaneous rupture of tympanic membrane Primary hypertension ([facility])- Primary Unspecified essential hypertension Insomnia Insomnia, unspecified Type 2 diabetes mellitus with complication, with long-term current use of insulin (CMS/[facility]) Non-seasonal allergic rhinitis, unspecified trigger Type 2 diabetes mellitus with unspecified complications ([facility]) Anxiety and depression ([facility]) Gastro-esophageal reflux disease without esophagitis Edema, unspecified Edema Diabetic polyneuropathy associated with type 2 diabetes mellitus ([facility]) Chronic obstructive pulmonary disease, unspecified (CMS/HCC) Pulmonary emphysema, unspecified emphysema type ([facility]/HCC) Bilateral lower extremity edema Tobacco user Tobacco use disorder Hyperpigmentation of skin Other dyschromia Bilateral lower extremity edema documented in this encounter [facility]* Diagnosis Obstructive sleep apnea- Primary Obstructive sleep apnea (adult) (pediatric) Pulmonary emphysema, unspecified emphysema type (CMS/HCC) Primary hypertension ([facility]) Unspecified essential hypertension Type 2 diabetes mellitus with complication, with long-term current use of insulin ([facility]) Anxiety and depression (CMS/[facility]) Bilateral lower extremity edema Pulmonary emphysema, unspecified emphysema type (CMS/HCC)- Primary Primary hypertension (CMS/HCC) Unspecified essential hypertension Class 3 severe obesity with serious comorbidity and body mass index (BMI) of 50.0 to 59.9 in adult,unspecified obesity type ([facility]/HCC) Obstructive sleep apnea Obstructive sleep apnea (adult) (pediatric) Pulmonary hypertension (CMS/HCC) Other chronic pulmonary heart diseases Tobacco user Tobacco use disorder Cardiomegaly Primary hypertension (CMS/HCC)- Primary Unspecified essential hypertension Gastroesophageal reflux disease, unspecified whether esophagitis present Type 2 diabetes mellitus with complication, with long-term current use of insulin (CMS/[facility]) Mixed hyperlipidemia (CMS/HCC) Mixed hyperlipidemia Tobacco user Tobacco use disorder Encounter for screening mammogram for malignant neoplasm of breast Chronic obstructive pulmonary disease, unspecified (CMS/[facility]) Other specified chronic obstructive pulmonary disease (CMS/[facility]) Anxiety and depression (CMS/[facility]) Edema, unspecified Edema Hyperlipidemia, unspecified (CMS/[facility]) Diabetic polyneuropathy associated with type 2 diabetes mellitus (CMS/[facility]) Gout, unspecified cause, unspecified chronicity, unspecified site Non-seasonal allergic rhinitis, unspecified trigger Bilateral lower extremity edema COPD exacerbation (CMS/[facility]) Obstructive chronic bronchitis with exacerbation Pulmonary emphysema, unspecified emphysema type (CMS/HCC) Venous insufficiency Unspecified venous (peripheral) insufficiency Candidiasis of breast COPD exacerbation (CMS/[facility])- Primary Obstructive chronic bronchitis with exacerbation Pulmonary hypertension (CMS/[facility]) Other chronic pulmonary heart diseases Class 3 severe obesity with serious comorbidity and body mass index (BMI) of 50.0 to 59.9 in adult,unspecified obesity type ([facility]) Encounter for subsequent annual wellness visit (AWV) in Medicare patient- Primary Type 2 diabetes mellitus with unspecified complications (CMS/[facility]) Pulmonary emphysema, unspecified emphysema type (CMS/HCC) Moderate persistent asthma without complication (CMS/HCC) Primary hypertension (CMS/[facility]) Unspecified essential hypertension Type 2 diabetes mellitus with complication, with long-term current use of insulin ([facility]) Class 3 severe obesity with serious comorbidity and body mass index (BMI) of 50.0 to 59.9 in adult,unspecified obesity type ([facility]/HCC) Tobacco user Tobacco use disorder Other headache syndrome Malignant neoplasm of cervix uteri, unspecified (CMS/[facility]) Other specified disorders of adrenal gland (CMS/[facility]) Major depressive disorder, single episode, mild (HCC) (CMS/[facility]) Major depressive disorder, single episode, mild [...] spontaneous rupture of tympanic membrane Primary hypertension (CMS/[facility])- Primary Unspecified essential hypertension Insomnia Insomnia, unspecified Type 2 diabetes mellitus with complication, with long-term current use of insulin (CMS/[facility]) Non-seasonal allergic rhinitis, unspecified trigger Type 2 diabetes mellitus with unspecified complications (CMS/[facility]) Anxiety and depression (CMS/[facility]) Gastro-esophageal reflux disease without esophagitis Edema, unspecified Edema Diabetic polyneuropathy associated with type 2 diabetes mellitus (CMS/[facility]) Chronic obstructive pulmonary disease, unspecified (CMS/[facility]) Pulmonary emphysema, unspecified emphysema type (CMS/HCC) Bilateral lower extremity edema Tobacco user Tobacco use disorder Hyperpigmentation of skin Other dyschromia Primary hypertension ([facility])- Primary Unspecified essential hypertension Diabetic polyneuropathy associated with type 2 diabetes mellitus (CMS/[facility]) Pulmonary emphysema, unspecified emphysema type (CMS/HCC) Critical limb ischemia of right lower extremity (CMS/[facility]) PAD (peripheral artery disease) ([facility]) Unspecified peripheral vascular disease Gastroesophageal reflux disease, unspecified whether esophagitis present Bilateral lower extremity edema Venous ulcer of right leg (CMS/[facility]) Type 2 diabetes mellitus with complication, with long-term current use of insulin (CMS/[facility]) Tobacco user Tobacco use disorder Encounter for smoking cessation counseling Kidney stone Calculus of kidney Adrenal mass 1 cm to 4 cm in diameter ([facility]) Radiculopathy, lumbar region Thoracic or lumbosacral neuritis or radiculitis, unspecified Non-seasonal allergic rhinitis, unspecified trigger Type 2 diabetes mellitus with unspecified complications (CMS/[facility]) documented in this encounter [facility]* Diagnosis Obstructive sleep apnea- Primary Obstructive sleep apnea (adult) (pediatric) Pulmonary emphysema, unspecified emphysema type (CMS/HCC) Primary hypertension (CMS/[facility]) Unspecified essential hypertension Type 2 diabetes mellitus with complication, with long-term current use of insulin (CMS/[facility]) Anxiety and depression (CMS/[facility]) Bilateral lower extremity edema Pulmonary emphysema, unspecified emphysema type (CMS/HCC)- Primary Primary hypertension (CMS/HCC) Unspecified essential hypertension Class 3 severe obesity with serious comorbidity and body mass index (BMI) of 50.0 to 59.9 in adult,unspecified obesity type ([facility]/HCC) Obstructive sleep apnea Obstructive sleep apnea (adult) (pediatric) Pulmonary hypertension (CMS/HCC) Other chronic pulmonary heart diseases Tobacco user Tobacco use disorder Cardiomegaly Primary hypertension (CMS/HCC)- Primary Unspecified essential hypertension Gastroesophageal reflux disease, unspecified whether esophagitis present Type 2 diabetes mellitus with complication, with long-term current use of insulin (CMS/[facility]) Mixed hyperlipidemia (CMS/HCC) Mixed hyperlipidemia Tobacco user Tobacco use disorder Encounter for screening mammogram for malignant neoplasm of breast Chronic obstructive pulmonary disease, unspecified ([facility]) Other specified chronic obstructive pulmonary disease ([facility]) Anxiety and depression (CMS/[facility]) Edema, unspecified Edema Hyperlipidemia, unspecified (CMS/[facility]) Diabetic polyneuropathy associated with type 2 diabetes mellitus ([facility]) Gout, unspecified cause, unspecified chronicity, unspecified site Non-seasonal allergic rhinitis, unspecified trigger Bilateral lower extremity edema COPD exacerbation (CMS/[facility]) Obstructive chronic bronchitis with exacerbation Pulmonary emphysema, unspecified emphysema type (CMS/[facility]) Venous insufficiency Unspecified venous (peripheral) insufficiency Candidiasis of breast COPD exacerbation (CMS/[facility])- Primary Obstructive chronic bronchitis with exacerbation Pulmonary hypertension (CMS/[facility]) Other chronic pulmonary heart diseases Class 3 severe obesity with serious comorbidity and body mass index (BMI) of 50.0 to 59.9 in adult,unspecified obesity type ([facility]) Encounter for subsequent annual wellness visit (AWV) in Medicare patient- Primary Type 2 diabetes mellitus with unspecified complications (CMS/HCC) Pulmonary emphysema, unspecified emphysema type (CMS/HCC) Moderate persistent asthma without complication (CMS/HCC) Primary hypertension ([facility]) Unspecified essential hypertension Type 2 diabetes mellitus with complication, with long-term current use of insulin ([facility]) Class 3 severe obesity with serious comorbidity and body mass index (BMI) of 50.0 to 59.9 in adult,unspecified obesity type ([facility]/HCC) Tobacco user Tobacco use disorder Other headache syndrome Malignant neoplasm of cervix uteri, unspecified (CMS/[facility]) Other specified disorders of adrenal gland (CMS/[facility]) Major depressive disorder, single episode, mild (HCC) ([facility]) Major depressive disorder, single episode, mild Non-pressure chronic ulcer of other part of left lower leg with fat layer exposed ([facility]) Chronic respiratory failure, unspecified whether with hypoxia or hypercapnia (CMS/HCC) Disorder of adrenal gland, unspecified (CMS/HCC) Non-pressure chronic ulcer of other part of right lower leg limited to breakdown of skin (CMS/HCC) Non-recurrent acute suppurative otitis media of left ear without spontaneous rupture of tympanic membrane Primary hypertension ([facility])- Primary Unspecified essential hypertension Insomnia Insomnia, unspecified Type 2 diabetes mellitus with complication, with long-term current use of insulin (CMS/HCC) Non-seasonal allergic rhinitis, unspecified trigger Type 2 diabetes mellitus with unspecified complications (CMS/HCC) Anxiety and depression (CMS/[facility]) Gastro-esophageal reflux disease without esophagitis Edema, unspecified Edema Diabetic polyneuropathy associated with type 2 diabetes mellitus (CMS/[facility]) Chronic obstructive pulmonary disease, unspecified (CMS/[facility]) Pulmonary emphysema, unspecified emphysema type (CMS/[facility]) Bilateral lower extremity edema Tobacco user Tobacco use disorder Hyperpigmentation of skin Other dyschromia Primary hypertension (CMS/HCC)- Primary Unspecified essential hypertension Diabetic polyneuropathy associated with type 2 diabetes mellitus (CMS/[facility]) Pulmonary emphysema, unspecified emphysema type (CMS/HCC) Critical limb ischemia of right lower extremity ([facility]) PAD (peripheral artery disease) ([facility]) Unspecified peripheral vascular disease Gastroesophageal reflux disease, unspecified whether esophagitis present Bilateral lower extremity edema Venous ulcer of right leg ([facility]) Type 2 diabetes mellitus with complication, with long-term current use of insulin ([facility]) Tobacco user Tobacco use disorder Encounter for smoking cessation counseling Kidney stone Calculus of kidney Adrenal mass 1 cm to 4 cm in diameter ([facility]) Radiculopathy, lumbar region Thoracic or lumbosacral neuritis or radiculitis, unspecified Non-seasonal allergic rhinitis, unspecified trigger Type 2 diabetes mellitus with unspecified complications (CMS/HCC) Anxiety and depression ([facility])- Primary Morbid (severe) obesity due to excess calories (CMS/[facility]) Body mass index (BMI) 50.0-59.9, adult (CMS/[facility]) Malignant neoplasm of cervix uteri, unspecified (CMS/[facility]) Diabetic polyneuropathy associated with type 2 diabetes mellitus (CMS/HCC) Chronic diastolic heart failure (CMS/[facility]) Chronic diastolic heart failure Primary hypertension ([facility]) Unspecified essential hypertension 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 ([facility]) Gastroesophageal reflux disease, unspecified whether esophagitis present Bilateral lower extremity edema Type 2 diabetes mellitus with complication, with long-term current use of insulin ([facility]) Tobacco user Tobacco use disorder Mixed hyperlipidemia ([facility]) Mixed hyperlipidemia Gout, unspecified cause, unspecified chronicity, unspecified site Vitamin deficiency Unspecified vitamin deficiency Gastro-esophageal reflux disease without esophagitis Edema, unspecified Edema Hyperlipidemia, unspecified ([facility]) Encounter for smoking cessation counseling Venous ulcer of right leg ([facility]) Antibiotic-induced yeast infection documented in this encounter [facility] HealthcareEvaluation note* Diagnosis Obstructive sleep apnea- Primary Obstructive sleep apnea (adult) (pediatric) Pulmonary emphysema, unspecified emphysema type ([facility]) Primary hypertension ([facility]) Unspecified essential hypertension Type 2 diabetes mellitus with complication, with long-term current use of insulin ([facility]) Anxiety and depression ([facility]) Bilateral lower extremity edema Pulmonary emphysema, unspecified emphysema type ([facility])- Primary Primary hypertension ([facility]) Unspecified essential hypertension Class 3 severe obesity with serious comorbidity and body mass index (BMI) of 50.0 to 59.9 in adult,unspecified obesity type Obstructive sleep apnea Obstructive sleep apnea (adult) (pediatric) Pulmonary hypertension ([facility]) Other chronic pulmonary heart diseases Tobacco user Tobacco use disorder Cardiomegaly Primary hypertension ([facility])- Primary Unspecified essential hypertension Gastroesophageal reflux disease, unspecified whether esophagitis present Type 2 diabetes mellitus with complication, with long-term current use of insulin ([facility]) Mixed hyperlipidemia ([facility]) Mixed hyperlipidemia Tobacco user Tobacco use disorder Encounter for screening mammogram for malignant neoplasm of breast Chronic obstructive pulmonary disease, unspecified Other specified chronic obstructive pulmonary disease Anxiety and depression ([facility]) Edema, unspecified Edema Hyperlipidemia, unspecified ([facility]) Diabetic polyneuropathy associated with type 2 diabetes mellitus ([facility]) Gout, unspecified cause, unspecified chronicity, unspecified site Non-seasonal allergic rhinitis, unspecified trigger Bilateral lower extremity edema COPD exacerbation ([facility]) Obstructive chronic bronchitis with exacerbation Pulmonary emphysema, unspecified emphysema type ([facility]) Venous insufficiency Unspecified venous (peripheral) insufficiency Candidiasis of breast COPD exacerbation (CMS/HCC)- Primary Obstructive chronic bronchitis with exacerbation Pulmonary hypertension (CMS/[facility]) Other chronic pulmonary heart diseases Class 3 severe obesity with serious comorbidity and body mass index (BMI) of 50.0 to 59.9 in adult,unspecified obesity type Encounter for subsequent annual wellness visit (AWV) in Medicare patient- Primary Type 2 diabetes mellitus with unspecified complications Pulmonary emphysema, unspecified emphysema type (CMS/[facility]) Moderate persistent asthma without complication ([facility]) Primary hypertension ([facility]) Unspecified essential hypertension Type 2 diabetes mellitus with complication, with long-term current use of insulin ([facility]) Class 3 severe obesity with serious comorbidity and body mass index (BMI) of 50.0 to 59.9 in adult,unspecified obesity type Tobacco user Tobacco use disorder Other headache syndrome Malignant neoplasm of cervix uteri, unspecified Other specified disorders of adrenal gland Major depressive disorder, single episode, mild (HCC) ([facility]) Major depressive disorder, single episode, mild Non-pressure chronic ulcer of other part of left lower leg with fat layer exposed Chronic respiratory failure, unspecified whether with hypoxia or hypercapnia Disorder of adrenal gland, unspecified Non-pressure chronic ulcer of other part of right lower leg limited to breakdown of skin ([facility]) Non-recurrent acute suppurative otitis media of left ear without spontaneous rupture of tympanic membrane Primary hypertension ([facility])- Primary Unspecified essential hypertension Insomnia Insomnia, unspecified Type 2 diabetes mellitus with complication, with long-term current use of insulin ([facility]) Non-seasonal allergic rhinitis, unspecified trigger Type 2 diabetes mellitus with unspecified complications Anxiety and depression ([facility]) Gastro-esophageal reflux disease without esophagitis Edema, unspecified Edema Diabetic polyneuropathy associated with type 2 diabetes mellitus ([facility]) Chronic obstructive pulmonary disease, unspecified Pulmonary emphysema, unspecified emphysema type (CMS/HCC) Bilateral lower extremity edema Tobacco user Tobacco use disorder Hyperpigmentation of skin Other dyschromia Primary hypertension ([facility]/HCC)- Primary Unspecified essential hypertension Diabetic polyneuropathy associated with type 2 diabetes mellitus (CMS/HCC) Pulmonary emphysema, unspecified emphysema type ([facility]/HCC) Critical limb ischemia of right lower extremity (CMS/[facility]) PAD (peripheral artery disease) ([facility]) Unspecified peripheral vascular disease Gastroesophageal reflux disease, unspecified whether esophagitis present Bilateral lower extremity edema Venous ulcer of right leg ([facility]) Type 2 diabetes mellitus with complication, with long-term current use of insulin ([facility]) Tobacco user Tobacco use disorder Encounter for smoking cessation counseling Kidney stone Calculus of kidney Adrenal mass 1 cm to 4 cm in diameter ([facility]) Radiculopathy, lumbar region Thoracic or lumbosacral neuritis or radiculitis, unspecified Non-seasonal allergic rhinitis, unspecified trigger Type 2 diabetes mellitus with unspecified complications Anxiety and depression ([facility])- Primary Morbid (severe) obesity due to excess calories ([facility]) Body mass index (BMI) 50.0-59.9, adult ([facility]) Malignant neoplasm of cervix uteri, unspecified Diabetic polyneuropathy associated with type 2 diabetes mellitus ([facility]) Chronic diastolic heart failure ([facility]) Chronic diastolic heart failure Primary hypertension ([facility]) Unspecified essential hypertension 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 Gastroesophageal reflux disease, unspecified whether esophagitis present Bilateral lower extremity edema Type 2 diabetes mellitus with complication, with long-term current use of insulin ([facility]) Tobacco user Tobacco use disorder Mixed hyperlipidemia ([facility]) Mixed hyperlipidemia Gout, unspecified cause, unspecified chronicity, unspecified site Vitamin deficiency Unspecified vitamin deficiency Gastro-esophageal reflux disease without esophagitis Edema, unspecified Edema Hyperlipidemia, unspecified ([facility]) Encounter for smoking cessation counseling Venous ulcer of right leg ([facility]) Antibiotic-induced yeast infection Type 2 diabetes mellitus with hyperglycemia, with long-term current use of insulin ([facility])- Primary Encounter for dietary consultation Vitamin D deficiency Primary hypertension ([facility]) Unspecified essential hypertension Insulin long-term use ([facility]) Encounter for long-term (current) use of insulin Hyperlipemia, mixed ([facility]) Mixed hyperlipidemia Microalbuminuria Proteinuria Class 3 severe obesity due to excess calories with serious comorbidity and body mass index (BMI) of50.0 to 59.9 in adult documented in this encounter [facility] HealthcareEvaluation note* Diagnosis Obstructive sleep apnea- Primary Obstructive sleep apnea (adult) (pediatric) Pulmonary emphysema, unspecified emphysema type ([facility]) Primary hypertension ([facility]) Unspecified essential hypertension Type 2 diabetes mellitus with complication, with long-term current use of insulin ([facility]) Anxiety and depression ([facility]) Bilateral lower extremity edema Pulmonary emphysema, unspecified emphysema type ([facility])- Primary Primary hypertension (CMS/[facility]) Unspecified essential hypertension Class 3 severe obesity with serious comorbidity and body mass index (BMI) of 50.0 to 59.9 in adult,unspecified obesity type Obstructive sleep apnea Obstructive sleep apnea (adult) (pediatric) Pulmonary hypertension (CMS/[facility]) Other chronic pulmonary heart diseases Tobacco user Tobacco use disorder Cardiomegaly Primary hypertension ([facility])- Primary Unspecified essential hypertension Gastroesophageal reflux disease, unspecified whether esophagitis present Type 2 diabetes mellitus with complication, with long-term current use of insulin ([facility]) Mixed hyperlipidemia ([facility]) Mixed hyperlipidemia Tobacco user Tobacco use disorder Encounter for screening mammogram for malignant neoplasm of breast Chronic obstructive pulmonary disease, unspecified Other specified chronic obstructive pulmonary disease Anxiety and depression ([facility]) Edema, unspecified Edema Hyperlipidemia, unspecified ([facility]) Diabetic polyneuropathy associated with type 2 diabetes mellitus ([facility]) Gout, unspecified cause, unspecified chronicity, unspecified site Non-seasonal allergic rhinitis, unspecified trigger Bilateral lower extremity edema COPD exacerbation ([facility]) Obstructive chronic bronchitis with exacerbation Pulmonary emphysema, unspecified emphysema type ([facility]) Venous insufficiency Unspecified venous (peripheral) insufficiency Candidiasis of breast COPD exacerbation ([facility])- Primary Obstructive chronic bronchitis with exacerbation Pulmonary hypertension ([facility]) Other chronic pulmonary heart diseases Class 3 severe obesity with serious comorbidity and body mass index (BMI) of 50.0 to 59.9 in adult,unspecified obesity type Encounter for subsequent annual wellness visit (AWV) in Medicare patient- Primary Type 2 diabetes mellitus with unspecified complications Pulmonary emphysema, unspecified emphysema type ([facility]) Moderate persistent asthma without complication ([facility]) Primary hypertension ([facility]) Unspecified essential hypertension Type 2 diabetes mellitus with complication, with long-term current use of insulin ([facility]) Class 3 severe obesity with serious comorbidity and body mass index (BMI) of 50.0 to 59.9 in adult,unspecified obesity type Tobacco user Tobacco use disorder Other headache syndrome Malignant neoplasm of cervix uteri, unspecified Other specified disorders of adrenal gland Major depressive disorder, single episode, mild (HCC) ([facility]) Major depressive disorder, single episode, mild Non-pressure chronic ulcer of other part of left lower leg with fat layer exposed Chronic respiratory failure, unspecified whether with hypoxia or hypercapnia Disorder of adrenal gland, unspecified Non-pressure chronic ulcer of other part of right lower leg limited to breakdown of skin ([facility]) Non-recurrent acute suppurative otitis media of left ear without spontaneous rupture of tympanic membrane Primary hypertension ([facility])- Primary Unspecified essential hypertension Insomnia Insomnia, unspecified Type 2 diabetes mellitus with complication, with long-term current use of insulin ([facility]) Non-seasonal allergic rhinitis, unspecified trigger Type 2 diabetes mellitus with unspecified complications Anxiety and depression ([facility]) Gastro-esophageal reflux disease without esophagitis Edema, unspecified Edema Diabetic polyneuropathy associated with type 2 diabetes mellitus ([facility]) Chronic obstructive pulmonary disease, unspecified Pulmonary emphysema, unspecified emphysema type ([facility]) Bilateral lower extremity edema Tobacco user Tobacco use disorder Hyperpigmentation of skin Other dyschromia Primary hypertension ([facility])- Primary Unspecified essential hypertension Diabetic polyneuropathy associated with type 2 diabetes mellitus ([facility]) Pulmonary emphysema, unspecified emphysema type ([facility]) Critical limb ischemia of right lower extremity ([facility]) PAD (peripheral artery disease) ([facility]) Unspecified peripheral vascular disease Gastroesophageal reflux disease, unspecified whether esophagitis present Bilateral lower extremity edema Venous ulcer of right leg ([facility]) Type 2 diabetes mellitus with complication, with long-term current use of insulin ([facility]) Tobacco user Tobacco use disorder Encounter for smoking cessation counseling Kidney stone Calculus of kidney Adrenal mass 1 cm to 4 cm in diameter ([facility]) Radiculopathy, lumbar region Thoracic or lumbosacral neuritis or radiculitis, unspecified Non-seasonal allergic rhinitis, unspecified trigger Type 2 diabetes mellitus with unspecified complications Anxiety and depression ([facility])- Primary Morbid (severe) obesity due to excess calories ([facility]) Body mass index (BMI) 50.0-59.9, adult ([facility]) Malignant neoplasm of cervix uteri, unspecified Diabetic polyneuropathy associated with type 2 diabetes mellitus ([facility] Chronic diastolic heart failure ([facility]) Chronic diastolic heart failure Primary hypertension ([facility]) Unspecified essential hypertension 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 Gastroesophageal reflux disease, unspecified whether esophagitis present Bilateral lower extremity edema Type 2 diabetes mellitus with complication, with long-term current use of insulin ([facility]) Tobacco user Tobacco use disorder Mixed hyperlipidemia ([facility]) Mixed hyperlipidemia Gout, unspecified cause, unspecified chronicity, unspecified site Vitamin deficiency Unspecified vitamin deficiency Gastro-esophageal reflux disease without esophagitis Edema, unspecified Edema Hyperlipidemia, unspecified ([facility]) Encounter for smoking cessation counseling Venous ulcer of right leg ([facility]) Antibiotic-induced yeast infection Chronic obstructive pulmonary disease, unspecified documented in this encounter [facility] HealthcareEvaluation note* Diagnosis Obstructive sleep apnea- Primary Obstructive sleep apnea (adult) (pediatric) Pulmonary emphysema, unspecified emphysema type ([facility]) Primary hypertension ([facility]) Unspecified essential hypertension Type 2 diabetes mellitus with complication, with long-term current use of insulin ([facility]) Anxiety and depression ([facility]) Bilateral lower extremity edema Pulmonary emphysema, unspecified emphysema type ([facility])- Primary Primary hypertension ([facility]) Unspecified essential hypertension Class 3 severe obesity with serious comorbidity and body mass index (BMI) of 50.0 to 59.9 in adult,unspecified obesity type Obstructive sleep apnea Obstructive sleep apnea (adult) (pediatric) Pulmonary hypertension ([facility]) Other chronic pulmonary heart diseases Tobacco user Tobacco use disorder Cardiomegaly Primary hypertension ([facility])- Primary Unspecified essential hypertension Gastroesophageal reflux disease, unspecified whether esophagitis present Type 2 diabetes mellitus with complication, with long-term current use of insulin ([facility]) Mixed hyperlipidemia ([facility]) Mixed hyperlipidemia Tobacco user Tobacco use disorder Encounter for screening mammogram for malignant neoplasm of breast Chronic obstructive pulmonary disease, unspecified Other specified chronic obstructive pulmonary disease Anxiety and depression ([facility]) Edema, unspecified Edema Hyperlipidemia, unspecified ([facility]) Diabetic polyneuropathy associated with type 2 diabetes mellitus ([facility]) Gout, unspecified cause, unspecified chronicity, unspecified site Non-seasonal allergic rhinitis, unspecified trigger Bilateral lower extremity edema COPD exacerbation ([facility]) Obstructive chronic bronchitis with exacerbation Pulmonary emphysema, unspecified emphysema type ([facility]) Venous insufficiency Unspecified venous (peripheral) insufficiency Candidiasis of breast COPD exacerbation ([facility] [place])- Primary Obstructive chronic bronchitis with exacerbation Pulmonary hypertension ([facility]) Other chronic pulmonary heart diseases Class 3 severe obesity with serious comorbidity and body mass index (BMI) of 50.0 to 59.9 in adult,unspecified obesity type Encounter for subsequent annual wellness visit (AWV) in Medicare patient- Primary Type 2 diabetes mellitus with unspecified complications Pulmonary emphysema, unspecified emphysema type ([facility]) Moderate persistent asthma without complication ([facility]) Primary hypertension ([facility]) Unspecified essential hypertension Type 2 diabetes mellitus with complication, with long-term current use of insulin ([facility]) Class 3 severe obesity with serious comorbidity and body mass index (BMI) of 50.0 to 59.9 in adult,unspecified obesity type Tobacco user Tobacco use disorder Other headache syndrome Malignant neoplasm of cervix uteri, unspecified Other specified disorders of adrenal gland Major depressive disorder, single episode, mild (HCC) ([facility]) Major depressive disorder, single episode, mild Non-pressure chronic ulcer of other part of left lower leg with fat layer exposed Chronic respiratory failure, unspecified whether with hypoxia or hypercapnia Disorder of adrenal gland, unspecified Non-pressure chronic ulcer of other part of right lower leg limited to breakdown of skin ([facility]) Non-recurrent acute suppurative otitis media of left ear without spontaneous rupture of tympanic membrane Primary hypertension ([facility])- Primary Unspecified essential hypertension Insomnia Insomnia, unspecified Type 2 diabetes mellitus with complication, with long-term current use of insulin ([facility]) Non-seasonal allergic rhinitis, unspecified trigger Type 2 diabetes mellitus with unspecified complications Anxiety and depression ([facility]) Gastro-esophageal reflux disease without esophagitis Edema, unspecified Edema Diabetic polyneuropathy associated with type 2 diabetes mellitus ([facility]) Chronic obstructive pulmonary disease, unspecified Pulmonary emphysema, unspecified emphysema type ([facility]) Bilateral lower extremity edema Tobacco user Tobacco use disorder Hyperpigmentation of skin Other dyschromia Primary hypertension ([facility])- Primary Unspecified essential hypertension Diabetic polyneuropathy associated with type 2 diabetes mellitus ([facility]) Pulmonary emphysema, unspecified emphysema type ([facility]) Critical limb ischemia of right lower extremity ([facility]) PAD (peripheral artery disease) ([facility]) Unspecified peripheral vascular disease Gastroesophageal reflux disease, unspecified whether esophagitis present Bilateral lower extremity edema Venous ulcer of right leg ([facility]) Type 2 diabetes mellitus with complication, with long-term current use of insulin ([facility]) Tobacco user Tobacco use disorder Encounter for smoking cessation counseling Kidney stone Calculus of kidney Adrenal mass 1 cm to 4 cm in diameter ([facility]) Radiculopathy, lumbar region Thoracic or lumbosacral neuritis or radiculitis, unspecified Non-seasonal allergic rhinitis, unspecified trigger Type 2 diabetes mellitus with unspecified complications Anxiety and depression ([facility])- Primary Morbid (severe) obesity due to excess calories ([facility]) Body mass index (BMI) 50.0-59.9, adult ([facility]) Malignant neoplasm of cervix uteri, unspecified Diabetic polyneuropathy associated with type 2 diabetes mellitus ([facility]) Chronic diastolic heart failure ([facility]) Chronic diastolic heart failure Primary hypertension ([facility] [place]) Unspecified essential hypertension 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 Gastroesophageal reflux disease, unspecified whether esophagitis present Bilateral lower extremity edema Type 2 diabetes mellitus with complication, with long-term current use of insulin ([facility]) Tobacco user Tobacco use disorder Mixed hyperlipidemia ([facility]) Mixed hyperlipidemia Gout, unspecified cause, unspecified chronicity, unspecified site Vitamin deficiency Unspecified vitamin deficiency Gastro-esophageal reflux disease without esophagitis Edema, unspecified Edema Hyperlipidemia, unspecified ([facility] [place]) Encounter for smoking cessation counseling Venous ulcer of right leg ([facility] [place]) Antibiotic-induced yeast infection Primary hypertension ([facility] [place])- Primary Unspecified essential hypertension Diabetic polyneuropathy associated with type 2 diabetes mellitus ([facility] Chronic diastolic heart failure ([facility]) Chronic diastolic heart failure Bilateral lower extremity edema Morbid (severe) obesity due to excess calories ([facility]) Type 2 diabetes mellitus with complication, with long-term current use of insulin ([facility]) Anxiety and depression ([facility] [place]) Cigarette nicotine dependence without complication Encounter for screening mammogram for malignant neoplasm of breast Insomnia Insomnia, unspecified Non-seasonal allergic rhinitis, unspecified trigger Type 2 diabetes mellitus with unspecified complications Vitamin D deficiency, unspecified Gastro-esophageal reflux disease without esophagitis PAD (peripheral artery disease) ([facility]) Unspecified peripheral vascular disease Gastroesophageal reflux disease, unspecified whether esophagitis present Venous ulcer of right leg ([facility]) documented in this encounter [facility] HealthcareEvaluation note* Diagnosis Obstructive sleep apnea- Primary Obstructive sleep apnea (adult) (pediatric) Pulmonary emphysema, unspecified emphysema type (HCC) Primary hypertension Unspecified essential hypertension Type 2 diabetes mellitus with complication, with long-term current use of insulin ([facility]) Anxiety and depression Bilateral lower extremity edema Pulmonary emphysema, unspecified emphysema type (HCC)- Primary Primary hypertension Unspecified essential hypertension Class 3 severe obesity with serious comorbidity and body mass index (BMI) of 50.0 to 59.9 in adult,unspecified obesity type [place] Obstructive sleep apnea Obstructive sleep [...] index (BMI) of 50.0 to 59.9 in adult,unspecified obesity type ([facility] Encounter for subsequent annual wellness [...] index (BMI) of 50.0 to 59.9 in adult,unspecified obesity type ([facility]) Tobacco user Tobacco use disorder Other [...] complication, with long-term current use of insulin ([facility]) Non-seasonal allergic rhinitis, unspecified trigger Type 2 diabetes mellitus with unspecified complications (HCC) Anxiety and depression Gastro-esophageal reflux disease without esophagitis Edema, unspecified Edema Diabetic polyneuropathy associated with type 2 diabetes mellitus ([facility]) Chronic obstructive pulmonary disease, unspecified (HCC) Pulmonary emphysema, unspecified emphysema type (HCC) Bilateral lower extremity edema Tobacco user Tobacco use disorder Hyperpigmentation of skin Other dyschromia Primary hypertension- Primary Unspecified essential hypertension Diabetic polyneuropathy associated with type 2 diabetes mellitus ([facility]) Pulmonary emphysema, unspecified emphysema type ([facility]) Critical limb ischemia of right lower extremity ([facility]) PAD (peripheral artery disease) Unspecified peripheral vascular disease Gastroesophageal reflux disease, unspecified whether esophagitis present Bilateral lower extremity edema Venous ulcer of right leg (HCC) Type 2 diabetes mellitus with complication, with long-term current use of insulin ([facility]) Tobacco user Tobacco use disorder Encounter for smoking cessation counseling Kidney stone Calculus of kidney Adrenal mass 1 cm to 4 cm in diameter ([facility]) Radiculopathy, lumbar region Thoracic or lumbosacral neuritis or radiculitis, unspecified Non-seasonal allergic rhinitis, unspecified trigger Type 2 diabetes mellitus with unspecified complications ([facility]) Anxiety and depression- Primary Morbid (severe) obesity due to excess calories ([facility]) Body mass index (BMI) 50.0-59.9, adult [place] Malignant neoplasm of cervix uteri, unspecified ([facility]) Diabetic polyneuropathy associated with type 2 diabetes mellitus (HCC) Chronic diastolic heart failure (HCC) Chronic diastolic heart failure Primary hypertension Unspecified essential hypertension 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 ([facility]) Gastroesophageal reflux disease, unspecified whether esophagitis present Bilateral lower extremity edema Type 2 diabetes mellitus with complication, with long-term current use of insulin ([facility]) Tobacco user Tobacco use disorder Mixed [...] due to excess calories ([facility]) Type 2 diabetes mellitus with complication, with long-term current use of insulin ([facility]) Anxiety and depression Cigarette nicotine dependence without complication Encounter for screening mammogram for malignant neoplasm of breast Insomnia Insomnia, unspecified Non-seasonal allergic rhinitis, unspecified trigger Type 2 diabetes mellitus with unspecified complications ([facility]) Vitamin D deficiency, unspecified Gastro-esophageal reflux disease without esophagitis PAD (peripheral artery disease) Unspecified peripheral vascular disease Gastroesophageal reflux disease, unspecified whether esophagitis present Venous ulcer of right leg ([facility]) Cellulitis of left lower extremity- Primary COPD exacerbation ([facility]) Obstructive chronic bronchitis with exacerbation Primary hypertension Unspecified essential hypertension Pulmonary hypertension ([facility]) Other chronic pulmonary heart diseases Morbid (severe) obesity due to excess calories ([facility]) Type 2 diabetes mellitus with complication, with long-term current use of insulin ([facility]) Anxiety and depression Fever, unspecified fever cause Hyperlipidemia, unspecified Tobacco user Tobacco use disorder Encounter for smoking cessation counseling documented in this encounter [facility] HealthcareEvaluation note* Diagnosis Obstructive sleep apnea- Primary Obstructive sleep apnea (adult) (pediatric) Pulmonary emphysema, unspecified emphysema type ([facility]) Primary hypertension ([facility]) Unspecified essential hypertension Type 2 diabetes mellitus with complication, with long-term current use of insulin ([facility]) Anxiety and depression ([facility]) Bilateral lower extremity edema Pulmonary emphysema, unspecified emphysema type ([facility])- Primary Primary hypertension ([facility]) Unspecified essential hypertension Class 3 severe obesity with serious comorbidity and body mass index (BMI) of 50.0 to 59.9 in adult,unspecified obesity type Obstructive sleep apnea Obstructive sleep apnea (adult) (pediatric) Pulmonary hypertension ([facility]) Other chronic pulmonary heart diseases Tobacco user Tobacco use disorder Cardiomegaly Primary hypertension ([facility])- Primary Unspecified essential hypertension Gastroesophageal reflux disease, unspecified whether esophagitis present Type 2 diabetes mellitus with complication, with long-term current use of insulin ([facility]) Mixed hyperlipidemia ([facility]) Mixed hyperlipidemia Tobacco user Tobacco use disorder Encounter for screening mammogram for malignant neoplasm of breast Chronic obstructive pulmonary disease, unspecified Other specified chronic obstructive pulmonary disease Anxiety and depression ([facility]) Edema, unspecified Edema Hyperlipidemia, unspecified ([facility]) Diabetic polyneuropathy associated with type 2 diabetes mellitus ([facility]) Gout, unspecified cause, unspecified chronicity, unspecified site Non-seasonal allergic rhinitis, unspecified trigger Bilateral lower extremity edema COPD exacerbation ([facility]) Obstructive chronic bronchitis with exacerbation Pulmonary emphysema, unspecified emphysema type ([facility]) Venous insufficiency Unspecified venous (peripheral) insufficiency Candidiasis of breast COPD exacerbation ([facility])- Primary Obstructive chronic bronchitis with exacerbation Pulmonary hypertension ([facility]) Other chronic pulmonary heart diseases Class 3 severe obesity with serious comorbidity and body mass index (BMI) of 50.0 to 59.9 in adult,unspecified obesity type Encounter for subsequent annual wellness visit (AWV) in Medicare patient- Primary Type 2 diabetes mellitus with unspecified complications Pulmonary emphysema, unspecified emphysema type ([facility]) Moderate persistent asthma without complication ([facility]) Primary hypertension ([facility]) Unspecified essential hypertension Type 2 diabetes mellitus with complication, with long-term current use of insulin ([facility]) Class 3 severe obesity with serious comorbidity and body mass index (BMI) of 50.0 to 59.9 in adult,unspecified obesity type Tobacco user Tobacco use disorder Other headache syndrome Malignant neoplasm of cervix uteri, unspecified Other specified disorders of adrenal gland Major depressive disorder, single episode, mild (HCC) ([facility]) Major depressive disorder, single episode, mild Non-pressure chronic ulcer of other part of left lower leg with fat layer exposed Chronic respiratory failure, unspecified whether with hypoxia or hypercapnia Disorder of adrenal gland, unspecified Non-pressure chronic ulcer of other part of right lower leg limited to breakdown of skin ([facility]) Non-recurrent acute suppurative otitis media of left ear without spontaneous rupture of tympanic membrane Primary hypertension ([facility])- Primary Unspecified essential hypertension Insomnia Insomnia, unspecified Type 2 diabetes mellitus with complication, with long-term current use of insulin ([facility]) Non-seasonal allergic rhinitis, unspecified trigger Type 2 diabetes mellitus with unspecified complications Anxiety and depression ([facility]) Gastro-esophageal reflux disease without esophagitis Edema, unspecified Edema Diabetic polyneuropathy associated with type 2 diabetes mellitus ([facility]) Chronic obstructive pulmonary disease, unspecified Pulmonary emphysema, unspecified emphysema type ([facility]) Bilateral lower extremity edema Tobacco user Tobacco use disorder Hyperpigmentation of skin Other dyschromia Primary hypertension ([facility]/HCC)- Primary Unspecified essential hypertension Diabetic polyneuropathy associated with type 2 diabetes mellitus ([facility]) Pulmonary emphysema, unspecified emphysema type ([facility]) Critical limb ischemia of right lower extremity ([facility]) PAD (peripheral artery disease) ([facility]) Unspecified peripheral vascular disease Gastroesophageal reflux disease, unspecified whether esophagitis present Bilateral lower extremity edema Venous ulcer of right leg ([facility]) Type 2 diabetes mellitus with complication, with long-term current use of insulin ([facility]) Tobacco user Tobacco use disorder Encounter for smoking cessation counseling Kidney stone Calculus of kidney Adrenal mass 1 cm to 4 cm in diameter ([facility]) Radiculopathy, lumbar region Thoracic or lumbosacral neuritis or radiculitis, unspecified Non-seasonal allergic rhinitis, unspecified trigger Type 2 diabetes mellitus with unspecified complications Anxiety and depression ([facility])- Primary Morbid (severe) obesity due to excess calories ([facility]) Body mass index (BMI) 50.0-59.9, adult ([facility]) Malignant neoplasm of cervix uteri, unspecified Diabetic polyneuropathy associated with type 2 diabetes mellitus ([facility] Chronic diastolic heart failure ([facility]) Chronic diastolic heart failure Primary hypertension ([facility]) Unspecified essential hypertension 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 Gastroesophageal reflux disease, unspecified whether esophagitis present Bilateral lower extremity edema Type 2 diabetes mellitus with complication, with long-term current use of insulin ([facility]) Tobacco user Tobacco use disorder Mixed hyperlipidemia ([facility]) Mixed hyperlipidemia Gout, unspecified cause, unspecified chronicity, unspecified site Vitamin deficiency Unspecified vitamin deficiency Gastro-esophageal reflux disease without esophagitis Edema, unspecified Edema Hyperlipidemia, unspecified ([facility]) Encounter for smoking cessation counseling Venous ulcer of right leg ([facility]) Antibiotic-induced yeast infection Primary hypertension ([facility] [place])- Primary Unspecified essential hypertension Diabetic polyneuropathy associated with type 2 diabetes mellitus ([facility] Chronic diastolic heart failure ([facility]) Chronic diastolic heart failure Bilateral lower extremity edema Morbid (severe) obesity due to excess calories ([facility]) Type 2 diabetes mellitus with complication, with long-term current use of insulin ([facility]) Anxiety and depression ([facility]) Cigarette nicotine dependence without complication Encounter for screening mammogram for malignant neoplasm of breast Insomnia Insomnia, unspecified Non-seasonal allergic rhinitis, unspecified trigger Type 2 diabetes mellitus with unspecified complications Vitamin D deficiency, unspecified Gastro-esophageal reflux disease without esophagitis PAD (peripheral artery disease) ([facility]) Unspecified peripheral vascular disease Gastroesophageal reflux disease, unspecified whether esophagitis present Venous ulcer of right leg [facility] [place]) Cellulitis of left lower extremity- Primary COPD exacerbation ([facility]) Obstructive chronic bronchitis with exacerbation Primary hypertension ([facility]) Unspecified essential hypertension Pulmonary hypertension ([facility]) Other chronic pulmonary heart diseases Morbid (severe) obesity due to excess calories ([facility]) Type 2 diabetes mellitus with complication, with long-term current use of insulin ([facility]) Anxiety and depression ([facility]) Fever, unspecified fever cause documented in this encounter [facility] HealthcareEvaluation note* Diagnosis Obstructive sleep apnea- [...] index (BMI) of 50.0 to 59.9 in adult,unspecified obesity type ([facility] Obstructive sleep apnea Obstructive sleep [...] index (BMI) of 50.0 to 59.9 in adult,unspecified obesity type ([facility]) Encounter for subsequent annual wellness visit (AWV) in Medicare patient- Primary Type 2 diabetes mellitus with unspecified complications ([facility]) Pulmonary emphysema, unspecified emphysema type ([facility]) Moderate persistent asthma without complication (HCC) Primary hypertension Unspecified essential hypertension Type 2 diabetes mellitus with complication, with long-term current use of insulin ([facility]) Class 3 severe obesity with serious comorbidity and body mass index (BMI) of 50.0 to 59.9 in adult,unspecified obesity type ([facility] Tobacco user Tobacco use disorder Other headache syndrome Malignant neoplasm of cervix uteri, unspecified (HCC) Other specified disorders of adrenal gland ([facility]) Major depressive disorder, single episode, mild Major depressive disorder, single episode, mild Non-pressure chronic ulcer of other part of left lower leg with fat layer exposed ([facility]) Chronic respiratory failure, unspecified whether with hypoxia or hypercapnia ([facility]) Disorder of adrenal gland, unspecified ([facility]) Non-pressure chronic ulcer of other part of right lower leg limited to breakdown of skin ([facility]) Non-recurrent acute suppurative otitis media of left ear without spontaneous rupture of tympanic membrane Primary hypertension- Primary Unspecified essential hypertension Insomnia Insomnia, unspecified Type 2 diabetes mellitus with complication, with long-term current use of insulin ([facility]) Non-seasonal allergic rhinitis, unspecified trigger Type 2 diabetes mellitus with unspecified complications ([facility]) Anxiety and depression Gastro-esophageal reflux disease without esophagitis Edema, unspecified Edema Diabetic polyneuropathy associated with type 2 diabetes mellitus ([facility]) Chronic obstructive pulmonary disease, unspecified ([facility]) Pulmonary emphysema, unspecified emphysema type ([facility]) Bilateral lower extremity edema Tobacco user Tobacco use disorder Hyperpigmentation of skin Other dyschromia Primary hypertension- Primary Unspecified essential hypertension Diabetic polyneuropathy associated with type 2 diabetes mellitus ([facility]) Pulmonary emphysema, unspecified emphysema type (HCC) Critical limb ischemia of right lower extremity ([facility]) PAD (peripheral artery disease) Unspecified peripheral vascular disease Gastroesophageal reflux disease, unspecified whether esophagitis present Bilateral lower extremity edema Venous ulcer of right leg ([facility]) Type 2 diabetes mellitus with complication, with long-term current use of insulin ([facility]) Tobacco user Tobacco use disorder Encounter for smoking cessation counseling Kidney stone Calculus of kidney Adrenal mass 1 cm to 4 cm in diameter ([facility]) Radiculopathy, lumbar region Thoracic or lumbosacral neuritis or radiculitis, unspecified Non-seasonal allergic rhinitis, unspecified trigger Type 2 diabetes mellitus with unspecified complications (HCC) Anxiety and depression- Primary Morbid (severe) obesity due to excess calories ([facility]) Body mass index (BMI) 50.0-59.9, adult ([facility]) Malignant neoplasm of cervix uteri, unspecified [...] due to excess calories ([facility]) Type 2 diabetes mellitus with complication, with long-term current use of insulin ([facility]) Anxiety and depression Cigarette nicotine dependence [...] due to excess calories ([facility]) Type 2 diabetes mellitus with complication, with long-term current use of insulin ([facility]) Anxiety and depression Fever, unspecified fever cause Encounter for subsequent annual wellness visit (AWV) in Medicare patient- Primary Mixed hyperlipidemia Mixed hyperlipidemia Type 2 diabetes mellitus with complication, with long-term current use of insulin ([facility]) Bilateral lower extremity edema Gastro-esophageal reflux [...] due to excess calories ([facility]) Type 2 diabetes mellitus with hyperglycemia, with long-term current use of insulin (HCC) documented in this encounter [facility] HealthcareEvaluation note* Diagnosis Obstructive sleep apnea- [...] index (BMI) of 50.0 to 59.9 in adult,unspecified obesity type ([facility]) Obstructive sleep apnea Obstructive sleep apnea [...] index (BMI) of 50.0 to 59.9 in adult,unspecified obesity type ([facility] Encounter for subsequent annual wellness visit (AWV) in Medicare patient- Primary Type 2 diabetes mellitus with unspecified complications ([facility]) Pulmonary emphysema, unspecified emphysema type ([facility]) Moderate persistent asthma without complication (HCC) Primary hypertension Unspecified essential hypertension Type 2 diabetes mellitus with complication, with long-term current use of insulin ([facility]) Class 3 severe obesity with serious comorbidity and body mass index (BMI) of 50.0 to 59.9 in adult,unspecified obesity type ([facility] Tobacco user Tobacco use disorder Other headache syndrome Malignant neoplasm of cervix uteri, unspecified (HCC) Other specified disorders of adrenal gland ([facility]) Major depressive disorder, single episode, mild Major depressive disorder, single episode, mild Non-pressure chronic ulcer of other part of left lower leg with fat layer exposed ([facility]) Chronic respiratory failure, unspecified whether with hypoxia or hypercapnia ([facility]) Disorder of adrenal gland, unspecified ([facility]) Non-pressure chronic ulcer of other part of right lower leg limited to breakdown of skin ([facility]) Non-recurrent acute suppurative otitis media of left ear without spontaneous rupture of tympanic membrane Primary hypertension- Primary Unspecified essential hypertension Insomnia Insomnia, unspecified Type 2 diabetes mellitus with complication, with long-term current use of insulin ([facility]) Non-seasonal allergic rhinitis, unspecified trigger Type 2 diabetes mellitus with unspecified complications ([facility]) Anxiety and depression Gastro-esophageal reflux disease without esophagitis Edema, unspecified Edema Diabetic polyneuropathy associated with type 2 diabetes mellitus ([facility]) Chronic obstructive pulmonary disease, unspecified ([facility]) Pulmonary emphysema, unspecified emphysema type ([facility]) Bilateral lower extremity edema Tobacco user Tobacco use disorder Hyperpigmentation of skin Other dyschromia Primary hypertension- Primary Unspecified essential hypertension Diabetic polyneuropathy associated with type 2 diabetes mellitus ([facility]) Pulmonary emphysema, unspecified emphysema type (HCC) Critical limb ischemia of right lower extremity ([facility]) PAD (peripheral artery disease) Unspecified peripheral vascular disease Gastroesophageal reflux disease, unspecified whether esophagitis present Bilateral lower extremity edema Venous ulcer of right leg ([facility]) Type 2 diabetes mellitus with complication, with long-term current use of insulin ([facility]) Tobacco user Tobacco use disorder Encounter for smoking cessation counseling Kidney stone Calculus of kidney Adrenal mass 1 cm to 4 cm in diameter ([facility]) Radiculopathy, lumbar region Thoracic or lumbosacral neuritis or radiculitis, unspecified Non-seasonal allergic rhinitis, unspecified trigger Type 2 diabetes mellitus with unspecified complications (HCC) Anxiety and depression- Primary Morbid (severe) obesity due to excess calories ([facility]) Body mass index (BMI) 50.0-59.9, adult ([facility]) Malignant neoplasm of cervix uteri, unspecified [...] due to excess calories ([facility] [place]) Type 2 diabetes mellitus with complication, [...] due to excess calories ([facility]) Type 2 diabetes mellitus with complication, [...] (severe) obesity due to excess calories ([facility]) Encounter for dietary consultation- Primary Type 2 diabetes mellitus with hyperglycemia, with long-term current use of insulin ([facility]) Vitamin D deficiency Primary hypertension Unspecified essential hypertension Insulin long-term use ([facility]) Encounter for long-term (current) use of insulin Hyperlipemia, mixed Mixed hyperlipidemia Microalbuminuria Proteinuria Class 3 severe obesity due to excess calories with serious comorbidity and body mass index (BMI) of50.0 to 59.9 in adult ([facility]) documented in this encounter [facility] HealthcareEvaluation note* Diagnosis Obstructive sleep apnea- Primary Obstructive sleep apnea (adult) (pediatric) Pulmonary emphysema, unspecified emphysema type (HCC) Primary hypertension Unspecified essential hypertension Type 2 diabetes mellitus with complication, with long-term current use of insulin ([facility]) Anxiety and depression Bilateral lower extremity edema Pulmonary emphysema, unspecified emphysema type (HCC)- Primary Primary hypertension Unspecified essential hypertension Class 3 severe obesity with serious comorbidity and body mass index (BMI) of 50.0 to 59.9 in adult,unspecified obesity type ([facility] Obstructive sleep apnea Obstructive sleep [...] polyneuropathy associated with type 2 diabetes mellitus ([facility]) Gout, unspecified cause, unspecified chronicity, unspecified [...] index (BMI) of 50.0 to 59.9 in adult,unspecified obesity type ([facility]) Encounter for subsequent annual wellness visit (AWV) in Medicare patient- Primary Type 2 diabetes mellitus with unspecified complications (HCC) Pulmonary emphysema, unspecified emphysema type ([facility]) Moderate persistent asthma without complication (HCC) Primary hypertension Unspecified essential hypertension Type 2 diabetes mellitus with complication, with long-term current use of insulin ([facility]) Class 3 severe obesity with serious comorbidity and body mass index (BMI) of 50.0 to 59.9 in adult,unspecified obesity type ([facility] Tobacco user Tobacco use disorder Other headache syndrome Malignant neoplasm of cervix uteri, unspecified (HCC) Other specified disorders of adrenal gland ([facility]) Major depressive disorder, single episode, mild Major depressive disorder, single episode, mild Non-pressure chronic ulcer of other part of left lower leg with fat layer exposed ([facility]) Chronic respiratory failure, unspecified whether with hypoxia or hypercapnia ([facility]) Disorder of adrenal gland, unspecified ([facility]) Non-pressure chronic ulcer of other part of right lower leg limited to breakdown of skin ([facility]) Non-recurrent acute suppurative otitis media of left ear without spontaneous rupture of tympanic membrane Primary hypertension- Primary Unspecified essential hypertension Insomnia Insomnia, unspecified Type 2 diabetes mellitus with complication, with long-term current use of insulin ([facility]) Non-seasonal allergic rhinitis, unspecified trigger Type 2 diabetes mellitus with unspecified complications ([facility]) Anxiety and depression Gastro-esophageal reflux disease without esophagitis Edema, unspecified Edema Diabetic polyneuropathy associated with type 2 diabetes mellitus ([facility]) Chronic obstructive pulmonary disease, unspecified (HCC) Pulmonary emphysema, unspecified emphysema type ([facility]) Bilateral lower extremity edema Tobacco user Tobacco use disorder Hyperpigmentation of skin Other dyschromia Primary hypertension- Primary Unspecified essential hypertension Diabetic polyneuropathy associated with type 2 diabetes mellitus (HCC) Pulmonary emphysema, unspecified emphysema type (HCC) Critical limb ischemia of right lower extremity ([facility]) PAD (peripheral artery disease) Unspecified peripheral vascular disease Gastroesophageal reflux disease, unspecified whether esophagitis present Bilateral lower extremity edema Venous ulcer of right leg ([facility]) Type 2 diabetes mellitus with complication, with long-term current use of insulin (HCC) Tobacco user Tobacco use disorder Encounter for smoking cessation counseling Kidney stone Calculus of kidney Adrenal mass 1 cm to 4 cm in diameter ([facility]) Radiculopathy, lumbar region Thoracic or lumbosacral neuritis or radiculitis, unspecified Non-seasonal allergic rhinitis, unspecified trigger Type 2 diabetes mellitus with unspecified complications ([facility]) Anxiety and depression- Primary Morbid (severe) obesity due to excess calories ([facility] [place]) Body mass index (BMI) 50.0-59.9, adult ([facility] [place]) Malignant neoplasm of cervix uteri, unspecified (HCC) Diabetic polyneuropathy associated with type 2 diabetes mellitus ([facility]) Chronic diastolic heart failure (HCC) Chronic diastolic heart failure Primary hypertension Unspecified essential hypertension 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 ([facility]) Gastroesophageal reflux disease, unspecified whether esophagitis present Bilateral lower extremity edema Type 2 diabetes mellitus with complication, with long-term current use of insulin ([facility]) Tobacco user Tobacco use disorder Mixed hyperlipidemia Mixed hyperlipidemia Gout, unspecified cause, unspecified chronicity, unspecified site Vitamin deficiency Unspecified vitamin deficiency Gastro-esophageal reflux disease without esophagitis Edema, unspecified Edema Hyperlipidemia, unspecified Encounter for smoking cessation counseling Venous ulcer of right leg ([facility]) Antibiotic-induced yeast infection Primary hypertension- Primary Unspecified essential hypertension Diabetic polyneuropathy associated with type 2 diabetes mellitus (HCC) Chronic diastolic heart failure (HCC) Chronic diastolic heart failure Bilateral lower extremity edema Morbid (severe) obesity due to excess calories ([facility]) Type 2 diabetes mellitus with complication, with long-term current use of insulin ([facility]) Anxiety and depression Cigarette nicotine dependence without complication Encounter for screening mammogram for malignant neoplasm of breast Insomnia Insomnia, unspecified Non-seasonal allergic rhinitis, unspecified trigger Type 2 diabetes mellitus with unspecified complications (HCC) Vitamin D deficiency, unspecified Gastro-esophageal reflux disease without esophagitis PAD (peripheral artery disease) Unspecified peripheral vascular disease Gastroesophageal reflux disease, unspecified whether esophagitis present Venous ulcer of right leg ([facility]) Cellulitis of left lower extremity- Primary COPD exacerbation (HCC) Obstructive chronic bronchitis with exacerbation Primary hypertension Unspecified essential hypertension Pulmonary hypertension (HCC) Other chronic pulmonary heart diseases Morbid (severe) obesity due to excess calories ([facility]) Type 2 diabetes mellitus with complication, with long-term current use of insulin ([facility]) Anxiety and depression Fever, unspecified fever [...] yeast infection Chronic obstructive pulmonary disease, unspecified ([facility]) Hyperlipidemia, unspecified Vaginal yeast infection Candidiasis of vulva and vagina Morbid (severe) obesity due to excess calories ([facility]) Tobacco user Tobacco use disorder Encounter for smoking cessation counseling documented in this encounter [facility] HealthcareEvaluation noteNo assessment information availableFirSCCI Hospital [facility] Work Phone: History general Narrative - Reported* Type Description Date Medical History diabetes mallitus Medical HistoryCOPDMedical HistoryADRENAL MASS 1 CM TO 4 CM IN DIAMETERMedical HistoryARTHRITISMedical HistoryASTHMAMedical HistoryHEADACHEMedical History HYPERTENSIONMedical HistoryKIDNEY STONESMedical HistoryLEFT FLANK PAINMedical HistoryMIXED INCONTINENCEMedical HistoryPROTEINURIAMedical HistorySMOKERSurgical [id number] Historytoe surgerySurgical HistoryLAPAROSCOPIC CHOLECYSTECTOMYHospitalization [id number] HistorySEE ABOVE Kinetic Social Other Hospital course Narrative No data available for this section [facility] progress note No data available for this section [facility] reason for referral (narrative) , Referral to Dr. Cortés Referred by: REGLA PHIPPS, Elbert Joya [facility] reason for referral (narrative)No reason for referral information availableFirSCCI Hospital [facility] Work Phone: Advance Directives TypeDate RecordedPatient RepresentativeExplanationAdvance Directives and Living WillPower of Manager Laboratory Advance Directive Response Recorded Date/ Time Advance Directives No December 13 3:20pm Summary Purpose Family History Relationship Condition Age at Onset Recorded Date/T isaac father Motor vehicle accident Unknown DeceasedUnknownfamily memberDeceasedUnknownmotherMotor vehicle accidentUnknown Chief Complaint and Reason for Visit Chief Complaint Admit Date FollowUp April 06, 2025 3:08pm Chief Complaint Admit Date FollowUp April 06, [...] 5:50pm Venous insufficiency April 29, 2025 5:50pm Additional Source Comments INFORMATION SOURCE (unrecogn ized section and content) DATE CREATED AUTHOR 10/30/2019 [facility] DATE CREATED AUTHOR AUTHOR'S ORGANIZ ATION 09/15/2020 [facility] DATE CREATED AUTHOR AUTHOR'S ORGANIZ ATION 12/19/2022 [facility] DATE CREATED AUTHOR AUTHOR'S ORGANIZ ATION 01/30/2025 [facility] DATE CREATED AUTHOR AUTHOR'S ORGANIZ ATION 04/12/2025 [facility] DATE CREATED AUTHOR AUTHOR'S ORGANIZ ATION 04/29/2025 [facility] DATE CREATED AUTHOR AUTHOR'S ORGANIZ ATION 05/01/2025 [facility] Care Team (unrecognized sect ion and content) Team MemberRelationshipSpecialtyStart DateEnd Date Ty Amin MD PCP - [facility]01/05/23Team MemberRelationshipSpecialtyStart DateEnd Date Ty Amin MD PCP - [facility]01/05/23Team MemberRelationshipSpecialtyStart DateEnd Date Ty Amin MD [address] [place] [id number] PCP - [facility]09/20/23 Mckayla Blas NP [address] [place] [address] PCP - [facility]/ Mckayla Blas NP [address] [place] [address] [facility]/20/23Team MemberRelationshipSpecialtyStart DateEnd Date Ty Amin MD [address] [place] [phone] [facility] - [facility] Mckayla Blas NP [address] [place] [address] PCP - [facility]/ Mckayla Blas NP [address] [place] [address] [facility]09/20/23Team MemberRelationshipSpecialtyStart DateEnd Date Ty Amin MD [address] [place] [address] PCP - [facility]09/20/23 Mckayla Blas NP [address] [place] [address] PCP - [facility]/ Mckayla Blas NP [address] [place] [address] [facility]09/20/23Team MemberRelationshipSpecialtyStart DateEnd Date Ty Amin MD [address] [place] [address] PCP - [facility]09/20/23 Mckayla Blas NP [address] [place] [address] [place] [address]/ Mckayla Blas NP [address] [place] [address] [facility]09/20/23Team MemberRelationshipSpecialtyStart DateEnd Date Ty Amin MD [address] [place] [address] PCP - [facility]09/20/23 Mckayla Blas NP [address] [place] [address] [place] [address]/ Mckayla Blas NP [address] [place] [address] [facility]09/20/23Team MemberRelationshipSpecialtyStart DateEnd Date Ty Amin MD [address] [place] [address] PCP - [facility]09/20/23 Mckayla Blas NP [address] [place] [address] [place] [address]/ Mckayla Blas NP [address] [place] [address] [facility]09/20/23Team MemberRelationshipSpecialtyStart DateEnd Date Ty Amin MD [address] [place] [address] PCP - [facility]09/20/23 Mckayla Blas NP [address] [place] [address] PCP - [facility]/ Mckayla Blas NP [address] [place] [address] [facility] Medicine09/20/23Team MemberRelationshipSpecialtyStart DateEnd Date Ty Amin MD [address] [place] [address] [facility] - [facility] Mckayla Blas NP [address] [place] [address] [place] [address] Mckayla Blas NP [address] [place] [address] Nurse Pract[facility]er[facility]09/20/23Team MemberRelationshipSpecialtyStart DateEnd Date Ty Amin MD [address] [place] [address] PCP - [facility]09/20/23 Mckayla Blas NP [address] [place] [address] PCP [facility] Mckayla Blas NP [address] [place] [address] [facility]09/20/23Team MemberRelationshipSpecialtyStart DateEnd Date Ty Amin MD [address] [place] [address] PCP - [facility]09/20/23 Mckayla Blas NP [address] [place] [address] PCP [facility]/ Mckayla Blas NP [address] [place] [address] [facility]09/20/23Team MemberRelationshipSpecialtyStart DateEnd Date Ty Amin MD [address] [place] [address] [facility]CP - [facility]09/20/23 Mckayla Blas, SILVANO [address] [place] [address] [place] [address]/ Mckayla Blas NP [address] [place] [address] [facility]09/20/23Team MemberRelationshipSpecialtyStart DateEnd Date Ty Amin MD [address] [place] [address] [facility] - [facility]09/20/23 Mckayla Blas NP [address] [place] [address] PCP - [facility]/ Mckayla Blas NP [address] [place] [address] [facility]09/20/23Team MemberRelationshipSpecialtyStart DateEnd Date Ty Amin MD [address] [place] [address] PCP - [facility]09/20/23 Mckayla Blas NP [address] [place] [address] [place] [address] Mckayla Blas NP [address] [place] [address] [facility]09/20/23Team MemberRelationshipSpecialtyStart DateEnd Date Ty Amin MD [address] [place] [address] [facility] - [facility]09/20/23 Mckayla Blas NP [address] [place] [address] [place] [address]/ Mckayla Blas NP [address] [place] [address] [facility]09/20/23Team MemberRelationshipSpecialtyStart DateEnd Date Ty Amin MD [address] [place] [address] PCP - [facility]09/20/23 Mckayla Blas NP [address] [place] [address] PCP [facility]/ Mckayla Blas NP [address] [place] [address] [facility]09/20/23Team MemberRelationshipSpecialtyStart DateEnd Date Ty Amin MD [address] [place] [address] PCP - [facility]09/20/23 Mckayla Blas NP [address] [place] [address] [place] [address]/ Mckayla Blas NP [address] [place] [address] [facility]09/20/23Team MemberRelationshipSpecialtyStart DateEnd Date Ty Amin MD [address] [place] [address] [facility] - [facility]09/20/23 Mckayla Blas, SILVANO [address] [place] [address] [place] [address] Mckayla Blas NP [address] [place] [address] Nurse [facility]09/20/23Team MemberRelationshipSpecialtyStart DateEnd Date Ty Amin MD [address] [place] [address] PCP - [facility]09/20/23 Mckayla Blas NP [address] [place] [address] [place] [address] Mckayla Blas NP [address] [place] [address] [facility]09/20/23Team MemberRelationshipSpecialtyStart DateEnd Date Ty Amin MD [address] [place] [address] PCP - [facility]09/20/23 Mckayla Blas NP [address] [place] [address] PCP [facility]/ Mckayla Blas NP [address] [place] [address] [facility]09/20/23Team MemberRelationshipSpecialtyStart DateEnd Date Ty Amin MD [address] [place] [address] [facility] - [facility]09/20/23 Mckayla Blas NP [address] [place] [address] [place] [address]/ Mckayla Blas NP [address] [place] [address] [facility]09/20/23Team MemberRelationshipSpecialtyStart DateEnd Date Ty Amin MD [address] [place] [address] PCP - General acute hospital Medicine09/20/23 Mckayla Blas NP [address] [place] [address] [facility]09/20/23Team MemberRelationshipSpecialtyStart DateEnd Date Ty Amin MD [address] [place] [address] PCP - General acute hospital Medicine09/20/23 Mckayla Blas NP [address] [place] [address] Nurse PractitionerUniversity [facility]ics[facility]09/20/23Team MemberRelationshipSpecialtyStart DateEnd Date Ty Amin MD [address] [place] [address] PCP - GeneralFamily Medicine09/20/23 Mckayla Blas NP [address] [place] [address] [facility]09/20/23Team MemberRelationshipSpecialtyStart DateEnd Date Ty Amin MD [address] [place] [address] PCP - GeneralFamily Medicine09/20/23 Mckayla Blas NP [address] [place] [address] Nurse PractitionerUniversity [facility]09/20/23Team MemberRelationshipSpecialtyStart DateEnd Date Ty Amin MD [address] [place] [address] PCP - GeneralFamily Medicine09/20/23 Mckayla Blas NP [address] [place] [address] Nurse PractitionerUniversity [facility]ics[facility]09/20/23 Team Status: Active Member Role Status Dates Mckayla J Aichholz , PROFILE SHAPER OPERATOR-C Primary Care Provider Active Team Status: Active Member Role Status Dates Mckayla Krystal Blas , PROFILE SHAPER OPERATOR-C Primary Care Provider Active Start: March 25, 2025 Price Arora , DOAttending ProviderActiveStart: March 25, 2025 Team Status: Active Member Role Status Dates Mckayla Krystal Blas , PROFILE SHAPER OPERATOR-C Primary Care Provider Active Start: March 26, 2025 Darrell Wellsending ProviderActiveStart: March 26, 2025 Team Status: Inactive Member Role Status Dates Mckayla Krystal Blas , PROFILE SHAPER OPERATOR-C Primary Care Provider Active Start: April 06, 2025 End: April 06, 2025Maria De Jesussa Krystal Blas , PROFILE SHAPER OPERATOR-CAttending ProviderActiveStart: April 06, 2025 End: April 06, 2025 Team Status: Active Member Role/Relationship Status Dates Mckayla Krystal Blas , PROFILE SHAPER OPERATOR-C Primary Care Provider Active Team Status: Active Member Role/Relationship Status Dates Mckayla Krystal Blas , PROFILE SHAPER OPERATOR-C Primary Care Provider Active Start: March 25, 2025 Price Arora DOAttending ProviderActiveStart: March 25, 2025 Team Status: Active Member Role/Relationship Status Dates Mckayla Krystal Blas , PROFILE SHAPER OPERATOR-C Primary Care Provider Active Start: March 26, 2025 Darrell Wellsending ProviderActiveStart: March 26, 2025 Team Status: Inactive Member Role/Relationship Status Dates Mckayla Krystal Blas , PROFILE SHAPER OPERATOR-C Primary Care Provider Active Start: April 06, 2025 End: April 06, 2025Mckayla Blas , PROFILE SHAPER OPERATOR-CAttending ProviderActiveStart: April 06, 2025 End: April 06, 2025 Team Status: Inactive Member Role/Relationship Status Dates Mckayla Krystal Patriciaholtalia , PROFILE SHAPER OPERATOR-C Primary Care Provider Active Start: April 29, 2025 End: April 29, 2025Mckayla Blas , PROFILE SHAPER OPERATOR-CAttending ProviderActiveStart: April 29, 2025 End: April 29, 2025Team MemberRelationshipSpecialtyStart DateEnd Date Ty Amin MD PCP - [facility]09/20/23 Mckayla Blas NP [address] [place] [address] PCP - [facility] Mckayla Blas NP [facility]09/20/23Team MemberRelationshipSpecialtyStart DateEnd Date Ty Amin MD PCP - [facility] Ty Amin MD PCP - [facility]09/20/23 Mckayla Blas NP [address] [place] [address] [place] [address] Mckayla Blas NP Nurse Pract[facility]er[facility]09/20/23Team MemberRelationshipSpecialtyStart DateEnd Date Ty Amin MD PCP - [facility]09/20/23 Mckayla Blas NP [address] [place] [address] PCP [facility] Mckayla Blas NP Nurse PractitionerFamily Medicine09/20/23 REASON FOR VISIT (unrecogniz ed section and content) ReasonCommentsMed RefillReasonCommentsDiabetesFollow-upReasonCommentsHospital Follow-upReasonCommentsMedicare Annual Wellness Visit InitialReasonComments Diabetes Goals (unrecognized section and content) Goals [...] BE BASED ON THE PRIMARY CLINICAL RECORDS. [facility]. provides no warranty or guarantee of the accuracy or completeness of information in this document.
== END 2025-05-05 11:24 | disposition home or self-care (01) ==
LOC: WC 11:23
PROVIDERS: PCP Nurse Practitioner; Visit Provider Physician Assistant
DX: I87.311 Chronic venous hypertension (idiopathic) with ulcer of right lower extremity (principal); L97.812 Non-pressure chronic ulcer of other part of right lower leg with fat layer exposed
CPT/HCPCS: 29581

== ENCOUNTER 2025-05-08 11:36 | Outpatient (OUT) | payer MEDICARE, SELFPAY ==
--- OUTSIDE RECORDS SUMMARY | 2024-12-02 05:30 | XMS_ITS ---
Author Organization The [facility] in [place] Address [address] [place] [address] Care Team Providers Care Business Line Controller Name Role Phone Mckayla Blas CNP Primary Care Provider Unavail Armando Carroll Unavailable [phone] REASON FOR VISIT 1YEAR-COPD Encounters Encounter Location Date Provider Diagnosis Pulmonary Medicine [place] [address] [place] [address] 12/02/2024 Armando Yañez Plan Of Treatment No Information Progress Notes * Mitzi MACIAS LDOB:[birth year] (54 yo F)Acc No.[id number]:12/02/2024 UNLOCKED PROGRESS NOTE Follow Up Patient: Mitzi COX :?Armando Yañez, DODOB:1970???Age:54 Y ???Sex:FemaleDate:12/02/2024Phone:[phone]:[address] [place], [place] [address]Pcp:Mckayla Blas CNP Subjective: * Chief Complaints: * 1 . 1YEAR-COPD. * Medical History: Objective: * Vitals: Assessment: Plan: * Treatment: * * Electronic signature of Armando Yañez DO on 05/08/2025 at 11:40 AM EDTSign off status: PendingVisit Status:?N/S N/C (No Show/No Charge) * Provider: Tray Yañez DO Date: 0 12/02/2024 Generated for Printing/Faxing/eTransmitting on:?05/08/2025 11:40 AM EDT
--- OUTSIDE RECORDS SUMMARY | 2025-05-08 11:39 | XMS_ITS | Encounter Summary ---
Author Organization [facility] Address [address] [place] [address] Care Team Providers Care Telemetry Technician Name Role Phone yT Amin MD Primary Care Provider [phone] Mckayla Blas NP Unavailable [phone] Mckayla Blas NP Unavailable [phone] Encounter Details DateTypeDepartmentCare Team (Latest Contact Info)Pntmnpnxcwj24/04/2024Clinisync Result Encounter [facility] External [facility] Unsolicited Provider, [...] relatives?Once a week08/26/2024How often do you attend orthodoxy or buddhist services?More than 4 times per year08/26/2024Do you belong to any clubs or organizations such as orthodoxy groups, unions, fraternal or athletic groups, or school groups?No08/26/2024How often do you attend meetings of the clubs or organizations you belong to?Never08/26/2024re you , , , , never , or living with a partner?Bdodqox8508/26/2024UDIT-C AnswerDate RecordedQ1: How often do you have [...] heating?Not hard at all08/26/2024PHQ-2AnswerDate RecordedPatient Health Questionnaire-2 Kgxti382Finbrigham city community hospital [place] of Occupational Health - Occupational Stress QuestionnaireAnswerDate RecordedDo you feel stress - tense, restless, nervous, or anxious, or unable to sleep at night because yourmind is troubled all the time - these days?Only a haclhs3008/26/2024 Exercise Vital SignAnswerDate RecordedOn average, how many [...] or living in a care home (including now)?No08/26/2024CommentsUnknownSex and Gender InformationValueDate RecordedSex Assigned at BirthNot on fileLegal Sex Gdumrv9609/20/2022 6:50 PM EDTGender IdentityNot on fileSexual OrientationNot on filedocumented as of this encounter Functional Status * AUDIT-C ScoreAnswerDate of ZozfwdtcegUehgfs127/18/2025 6:13 PM Riley, Generic * Q1: How [...] or more drinks on one occasion?AnswerDate of GgftuupfyvPsnxkuOyuln77/18/2025 6:13 PM Riley, Generic * Over the past 2 weeks, how often have you been bothered by any of the following problems?QuestionAnswerDate of AssessmentAuthorLittle interest or pleasure in doing thingsNot at all01/26/2025 6:14 PM Marilyn Gibson MA Feeling down, depressed, or hopelessNot at all01/26/2025 6:14 PM Marilyn Gibson MAPatient Health Questionnaire-2 Pelnc948 6:14 PM EDT Marilyn Forman MA * [...] Plan of Treatment DateTypeDepartmentCare Team (Latest Contact Info)Ywidbsaarqo67/20/2025 10:30 AM ESTOffice Visit [facility] [place] [facility] [address] [place] [address] Rain Souza MD [address] [place] [address] documented as of this encounter Procedures Procedure NamePriorityDate/TimeAssociated DiagnosisCommentsMR LUMBAR SPINE WO CON05/12/2024 2:41 PM EST documented in this encounter Results * MR LUMBAR SPINE WO CON (05/12/2024 2:41 PM EST)Anatomical RegionLaterality ModalityOtherSpecimen (Source)Anatomical Location / LateralityCollection Method / VolumeCollection TimeReceived Time05/12/2024 2:41 PM EST Narrative 05/12/2024 2:43 PM EST [facility] ?[address] ? [place] [address] ? Magnetic Resonance Report ? Signed ? Patient: MACIAS,MITZI L ?MR#: [id number] ?? : 1970 ?Acct:[id number] ?? Age/Sex: 53 / F ?ADM Date: 05/12/24 ?? Loc: MRI ? Attending Dr: Celestina Chin MANAGER REVIEW ? Ordering Physician: Cleestina Chin NP ?? Date of Service: 05/12/24 ?? Procedure(s): MR lumbar spine wo con ?? Accession Number(s): [id number] ? cc: Mckayla Blas NP; Celestina Chin NP ? [facility] ? [address] ? [place] [address] ? Patient Name: ?? MITZI MACIAS ? MRN: [id number] ? date: 1970 ?Sex: F ?? Assigned Patient Location: MRI ?? Current Patient Location: CT ?? Accession/Order Number: [id number] ?? Exam Date: 05/12/2024 ??09:21 ?Report Date: [...] 1443 ? DD/ 1441 ? TD/TT: ? Cruller Maker: Procedure Note Radiology, Radiologist, MD - 05/12/[address] [address] Magnetic Resonance Report Signed Patient: MITZI MACIAS LMR#: [id number] : 1970Acct:[id number] Age/Sex: 53 / FADM Date: 05/12/24 Loc: MRI Attending Dr: Celestina Chin NP Ordering Physician: Celestina Chin NP Date of Service: 05/12/24 Procedure(s): MR lumbar spine wo con Accession Number(s): [id number] cc: Mckayla Blas NP; Celestina Chin NP [address] [address] Patient Name: MITZI MACIAS MRN: [id number] date: 1970 Sex: F Assigned Patient Location: MRI Current Patient Location: CT Accession/Order Number: [id number] Exam Date: 05/12/2024 09:21 Report Date: 05/12/2024 [...] Gardner M.D. Signed By:05/12/241442 DD/ 40 TD/TT: Cruller Maker: Authorizing ProviderResult TypeResult StatusGeneric External Data Provider [facility] IMAGINGFinal Result documented in this encounter Visit Diagnoses Not on filedocumented in this encounter Additional Health Concerns AssessmentNoted TimePQ-9 Depression Total Score: 307 10:08 AM EDT documented as of this encounter Care Teams Team MemberRelationshipSpecialtyStart DateEnd Date Ty Amin MD PCP - GeneralFamily Medicine09/20/23 Mckayla Blas NP [address] [place] [address] PCP - [facility]/ Mckayla Blas NP Nurse PractitionerFamily Medicine09/20/23documented as of this encounter
--- OUTSIDE RECORDS SUMMARY | 2025-05-08 11:39 | XMS_ITS | Encounter Summary ---
Author Organization [facility] Address [address] [place] [address] Care Team Providers Care Frequency Checker Name Role Phone Ty Amin MD Primary Care Provider [phone] Mckayla Blas NP Unavailable [phone] Mckayla Blas NP Unavailable [phone] Encounter Details DateTypeDepartmentCare Team (Latest Contact Info)Mmjibnqgbez00/04/2024Clinisync Result Encounter [facility] External [facility] Unsolicited Provider, [...] week08/26/2024How often do you attend orthodoxy or worship services?More than 4 times per year08/26/2024Do you belong to any clubs or organizations such as orthodoxy groups, unions, fraternal or athletic groups, or school groups?No08/26/2024How often do you attend meetings of the clubs or organizations you belong to?Never08/26/2024re you , , , , never , or living with a partner?Bpkuatn3708/26/2024UDIT-C AnswerDate RecordedQ1: How often do you have [...] heating?Not hard at all08/26/2024PHQ-2AnswerDate RecordedPatient Health Questionnaire-2 Iposp535Finmckay-dee hospital center [place] of Occupational Health - Occupational Stress QuestionnaireAnswerDate RecordedDo you feel stress - tense, restless, nervous, or anxious, or unable to sleep at night because yourmind is troubled all the time - these days?Only a frqxdq4008/26/2024 Exercise Vital SignAnswerDate RecordedOn average, how many [...] homeless or living in a alf (including now)?No08/26/2024CommentsUnknownSex and Gender InformationValueDate RecordedSex Assigned at BirthNot on fileLegal Sex Fmkmwx1909/20/2022 6:50 PM EDTGender IdentityNot on fileSexual OrientationNot on filedocumented as of this encounter Functional Status * AUDIT-C ScoreAnswerDate of ChsoebrwnfYwzzhn636/18/2025 6:13 PM Riley, Generic * Q1: How [...] or more drinks on one occasion?AnswerDate of QhxegqwioyAgttetIgwpm62/18/2025 6:13 PM Riley, Generic * Over the past 2 weeks, how often have you been bothered by any of the following problems?QuestionAnswerDate of AssessmentAuthorLittle interest or pleasure in doing thingsNot at all01/26/2025 6:14 PM Marilyn Gibson MA Feeling down, depressed, or hopelessNot at all01/26/2025 6:14 PM Marilyn Gibson MAPatient Health Questionnaire-2 Khxua427 6:14 PM EDT Marilyn Forman MA * [...] Plan of Treatment DateTypeDepartmentCare Team (Latest Contact Info)Gyzshbwwnuo70/20/2025 10:30 AM ESTOffice Visit [facility] [facility] [address] [place] [address] Rain Souza MD [address] [place] [address] documented as of this encounter Procedures Procedure NamePriorityDate/TimeAssociated DiagnosisCommentsCT ABDOMEN PELVIS W CON05/12/2024 2:16 PM EST documented in this encounter Results * CT ABDOMEN PELVIS W CON (05/12/2024 2:16 PM EST)Anatomical RegionLaterality ModalityOtherSpecimen (Source)Anatomical Location / LateralityCollection Method / VolumeCollection TimeReceived Time05/12/2024 2:16 PM EST Narrative 05/12/2024 2:19 PM EST [facility] ?[address] ? [place] [address] ? CT Scan Report ? Signed ? Patient: DIONISIO,MITZI L ?MR#: [id number] ?? : 1970 ?Acct:[id number] ?? Age/Sex: 53 / F ?ADM Date: 05/12/24 ?? Loc: CT ? Attending Dr: Gaviota MAYERS ? Ordering Physician: Gaviota Vega ?? Date of Service: 05/12/24 ?? Procedure(s): CT abdomen pelvis w con ?? Accession Number(s): [id number] ? cc: Mckayla Blas NP ? [facility] ? [address] ? [place] [address] ? Patient Name: ?? MITZI MACIAS ? MRN: [id number] ? date: 1970 ?Sex: F ?? Assigned Patient Location: CT ?? Current Patient Location: WC ?? Accession/Order Number: [id number] ?? Exam Date: 05/12/2024 ??11:15 ?Report Date: [...] 1419 ? DD/ 1416 ? TD/TT: ? Parachute Cushion Installer: Procedure Note Radiology, Radiologist, MD - 05/12/[address] [address] [address] Scan Report Signed Patient: MITZI MACIAS LMR#: [id number] : 1970Acct:[id number] Age/Sex: 53 / FADM Date: 05/12/24 Loc: CT Attending Dr: Gaviota MAYERS Ordering Physician: Gaviota Vega Date of Service: 05/12/24 Procedure(s): CT abdomen pelvis w con Accession Number(s): [id number] cc: Mckayla Blas NP [place] [address] [place] [id number] Patient Name: MITZI MACIAS MRN: [facility]:[id number] date: 1970 Sex: F Assigned Patient Location: CT Current Patient Location: Accession/Order Number: [id number] Exam Date: 05/12/2024 11:15 Report Date: 05/12/2024 [...] M.D. Signed By:05/12/24 1419 DD/ 1416 TD/TT: Parachute Cushion Installer: Authorizing ProviderResult TypeResult StatusGeneric External Data Provider CLINISYNC IMAGINGFinal Result documented in this encounter Visit Diagnoses Not on filedocumented in this encounter Additional Health Concerns AssessmentNoted TimePHQ-9 Depression Total Score: 307 10:08 AM EDT documented as of this encounter Care Teams Team MemberRelationshipSpecialtyStart DateEnd Date Ty Amin MD PCP - GeneralFamily Medicine09/20/23 Mckayla Blas NP [address] [place] [address] PCP - [facility]/ Mckayla Blas NP Nurse PractitionerFamily Medicine09/20/23documented as of this encounter
--- OUTSIDE RECORDS SUMMARY | 2025-05-08 11:39 | XMS_ITS | Encounter Summary ---
Author Organization [facility] Address [address] [place] [address] Care Team Providers Care Induction Furnace Operator Name Role Phone Ty Amin MD Primary Care Provider [phone] Mckayla Blas NP Unavailable [phone] Mckayla Blas NP Unavailable [phone] Encounter Details DateTypeDepartmentCare Team (Latest Contact Info)Smvqdxzzxvr58/17/2024Clinisync Result Encounter [facility] External Department Unsolicited Provider, [...] relatives?Once a week08/26/2024How often do you attend sabianist or buddhism services?More than 4 times per year08/26/2024Do you belong to any clubs or organizations such as sabianist groups, unions, fraternal or athletic groups, or school groups?No08/26/2024How often do you attend meetings of the clubs or organizations you belong to?Never08/26/2024re you , , , , never , or living with a partner?Vojsqmw0208/26/2024UDIT-C AnswerDate RecordedQ1: How often do you have [...] heating?Not hard at all08/26/2024PHQ-2AnswerDate RecordedPatient Health Questionnaire-2 Qgntx871Fin[facility] [place] of [facility] - Occupational Stress QuestionnaireAnswerDate RecordedDo you feel stress - tense, restless, nervous, or anxious, or unable to sleep at night because yourmind is troubled all the time - these days?Only a fwnuge4608/26/2024 Exercise Vital SignAnswerDate RecordedOn average, how many [...] homeless or living in a detention (including now)?No08/26/2024CommentsUnknownSex and Gender InformationValueDate RecordedSex Assigned at BirthNot on fileLegal Sex Negfur0109/20/2022 6:50 PM EDTGender IdentityNot on fileSexual OrientationNot on filedocumented as of this encounter Functional Status * AUDIT-C ScoreAnswerDate of IclgmugfmxQkxhst314/18/2025 6:13 PM Riley, Generic * Q1: How [...] or more drinks on one occasion?AnswerDate of SvsgrephntOrnboxGhodp51/18/2025 6:13 PM Riley, Generic * Over the past 2 weeks, how often have you been bothered by any of the following problems?QuestionAnswerDate of AssessmentAuthorLittle interest or pleasure in doing thingsNot at all01/26/2025 6:14 PM Marilyn Gibson MA Feeling down, depressed, or hopelessNot at all01/26/2025 6:14 PM Marilyn Gibson MAPatient Health Questionnaire-2 Kghab062 6:14 PM EDT Marilyn Forman MA * [...] Plan of Treatment DateTypeDepartmentCare Team (Latest Contact Info)Nefpbygjpob27/20/2025 10:30 AM ESTOffice Visit [facility] [address] [place] [address] Rain Souza MD [address] [place] [address] documented as of this encounter Procedures Procedure NamePriorityDate/TimeAssociated DiagnosisCommentsSEGMENTAL BLOOD UKSDJYHQ11/17/2024 11:20 AM EDT documented in this encounter Results * SEGMENTAL BLOOD PRESSURE (04/24/2024 11:20 AM EDT)Anatomical RegionLaterality ModalityRadiographic ImagingSpecimen (Source)Anatomical Location / Laterality Collection Method / VolumeCollection TimeReceived Time04/24/2024 11:20 AM EDT Narrative 04/24/2024 11:23 AM EDT [facility] ?[address] ? [place] [address] ?Vein Report ? Signed ? Patient: MACIAS,MITZI L ?MR#: [id number] ?? : 1970 ?Acct:[id number] ?? Age/Sex: 53 / F ?ADM Date: 04/24/24 ?? Loc: VC ? Attending Dr: Rafael Gongora ? Ordering Physician: Rafael Gongora ?? Date of Service: 04/24/24 ?? Procedure(s): VC SEGMENTAL PRESSURES ?? Accession Number(s): [id number] ? cc: Mckayla Blas NP; Rafael Gongora ? [facility] ? [address] ? [place] [address] ? Patient Name: ?? MITZI MACIAS ? MRN: [id number] ? date: 1970 ?Sex: F ?? Assigned Patient Location: VC ?? Current Patient Location: VC ?? Accession/Order Number: [id number] ?? Exam Date: 04/24/2024 ??10:25 ?Report Date: [...] 124, 106 ?? DPA: 108, 105 ?? LIBRARY HELPER: 100, 91 ?? 1st Toe: 124, 142 [...] ?04/24/243 ? DD/ 1120 ? TD/TT: ? Inside Channel Account Manager: Procedure Note Radiology, Radiologist, MD - 04/24/[address] [address] Vein Report Signed Patient: MITZI MACIAS LMR#: [id number] : 1970Acct:[id number] Age/Sex: 53 / FADM Date: 04/24/24 Loc: Attending Dr: Rafael Gongora Ordering Physician: Rafael Gongora Date of Service: 04/24/24 Procedure(s): VC SEGMENTAL PRESSURES Accession Number(s): [id number] cc: Mckayla Blas REST ROOM ATTENDANT; Rafael Gongora The [address] [address] Patient Name: MITZI MACIAS MRN: [id number] date: 1970 Sex: F Assigned Patient Location: Current Patient Location: VC Accession/Order Number: [id number] Exam Date: 04/24/2024 10:25 Report Date: 04/24/2024 11:20 At the request of: RAFAEL GONGORA Procedure: VC SEGMENTAL PRESSURES EXAM: VC SEGMENTAL PRESSURES HISTORY: R09.89 COMPARISON: None. FINDINGS: Segmental pressures presented as follows (right, left) in mmHg. Brachial: 169, 166 Upper thigh: Not obtained Lower thigh: 129, 119 Calf: 124, 106 DPA: 108, 105 LIBRARY HELPER: 100, 91 1st Toe: 124, 142 ISABELLE: [...] M.D. Signed By:04/24/24 1123 DD/ 1120 TD/TT: Inside Channel Account Manager: Authorizing ProviderResult TypeResult StatusGeneric External Data ProviderIMG XR PROCEDURESFinal Result documented in this encounter Visit Diagnoses Not on filedocumented in this encounter Additional Health Concerns AssessmentNoted TimePHQ-9 Depression Total Score: 307/05/2024 10:08 AM EDT documented as of this encounter Care Teams Team MemberRelationshipSpecialtyStart DateEnd Date Ty Amin MD PCP - GeneralFamily Medicine09/20/23 Mckayla Blas NP [address] [place] [address] PCP - [facility]/ Mckayla Blas NP Nurse PractitionerFamily Medicine09/20/23documented as of this encounter
--- OUTSIDE RECORDS SUMMARY | 2025-05-08 11:39 | XMS_ITS | Clinical Summary ---
Author Organization [employer] Address [id number] [address] [place] [address] Care Team Providers Care Sugar Mixer Name Role Phone Wan Mckayla Rice APRN-APPLICATION SOFTWARE DEVELOPER Primary Care Provider Allergies No known active [...] mg/0.5 mL pen injector inject one pen lmhvib4804/12/2020Active DULoxetine (CYMBALTA) 60 mg capsule Take 1 [...] get venous reflux ultrasound. Other chronic pain1ANA zcuqigfu87/11/2021Preop cardiovascular exam 05/28/20201743Oxvlyoh62/20/2020 Assessment & Plan (06/19/2024 2:16 PM EST): Counseled on smoking cessation for at least 3 minutes. She is willing to quit. Morbid bpnfcla3705/28/2020BMI 50.0-59.9, adult05/21/2020 Family History Medical HistoryRelationNameCommentsCancerPaternal GrandfatherCancerPaternal GrandmotherHeart diseasePaternal GrandmotherStrokePaternal GrandmotherRelation NameStatusCommentsFatherDeceasedMotherDeceasedPaternal GrandfatherPaternal Grandmother Social History Tobacco UseTypesPacks/DayYears UsedDateSmoking Tobacco: Every DayCigarettes Smokeless Tobacco: NeverAlcohol UseStandard Drinks/WeekCommentsYes0 (1 standard drink = 0.6 oz pure alcohol)RAREChildcareAnswerDate RecordedChildcareUnknown 12/12/2018EmploymentAnswerDate SngibugvNmiyermchpPdaahrz49/06/2019Purpose - Life AnswerDate RecordedPurpose and direction in cacmEfzgosi96/06/2021 CommentsUnknownSex and Gender InformationValueDate RecordedSex Assigned at Not on fileLegal AlsEnodvo51/06/2015 11:50 AM EDTGender IdentityNot on file Sexual OrientationNot on file Last Filed Vital Signs Vital SignReadingTime TakenCommentsBlood Kotmcbkw085/7006/19/2024 11:26 AM EST Ndfti851306/19/2024 11:26 AM VTAThvefepjpch44.7 ??C (98 ??F)06/19/2024 11:26 AM ESTRespiratory Wuou542608/20/2023 11:26 AM ESTOxygen Pmjjftnemb69%06/11/2020 9:27 AM ESTInhaled Oxygen Concentration--Yoqgoa187.6 kg (374 lb)06/19/2024 11:26 AM OGAMnqeop096 cm (5' 6.93 )06/19/2024 11:26 AM ESTBody Mass Index58.7108/20/2023 11:26 AM EST Plan of Treatment Health MaintenanceDue DateLast DoneCommentsStatin Use: Mjwjufpdsthpfl39/17/1971 Depression Xckeldjpz69/17/1983Tobacco Nyvxtzcre35/17/1983Adult BMI Follow Up Plan1988DTaP,Tdap and Td Vaccines (1 - Tdap)1989Pap Smear1991 Zoster (Shingles) Vaccine (1 of 2)1COVID-19 Vaccine (4 - 2024-26 season)5007/19/2021, 10/28/2020, 10/08/2020Influenza Pwhqwue0803/09/2025 05/18/2023, 04/16/2017, 05/10/2016, Additional history existsAdult BMI Screening Medical Devices Not on file Insurance Care Teams Team MemberRelationshipSpecialtyStart DateEnd Date Mckayla Blas, WELLNESS GUIDE-APPLICATION SOFTWARE DEVELOPER [address] [place] [address] PCP - GeneralNurse Practitioner09/25/18
--- OUTSIDE RECORDS SUMMARY | 2025-05-08 11:39 | XMS_ITS | Encounter Summary ---
Author Organization [facility] Address [address] [place] [address] Care Team Providers Care Pediatric Neuropsychologist Name Role Phone Ty Amin MD Primary Care Provider [phone] Ty Amin MD Primary Care Provider [phone] Mckayla Blas PHERESIS NURSE Unavailable [phone] Mckayla Blas PHERESIS NURSE Unavailable [phone] Encounter Details DateTypeDepartmentCare Team (Latest Contact Info)Tqpetpkdshp23/23/2024Clinisync Result Encounter [facility] External Department Unsolicited Andra Alcala PA [address] [place], [place] [address] Social History Tobacco UseTypesPacks/DayYears UsedDateSmoking Tobacco: Every [...] relatives?Once a week08/26/2024How often do you attend anabaptist or voodoo services?More than 4 times per year08/26/2024Do you belong to any clubs or organizations such as anabaptist groups, unions, fraternal or athletic groups, or school groups?No08/26/2024How often do you attend meetings of the clubs or organizations you belong to?Never08/26/2024re you , , , , never , or living with a partner?Jjdaiip9508/26/2024UDIT-C AnswerDate RecordedQ1: How often do you have [...] heating?Not hard at all08/26/2024PHQ-2AnswerDate RecordedPatient Health Questionnaire-2 Qajsw060Finjordan [facility] [place] of Occupational Health - Occupational Stress QuestionnaireAnswerDate RecordedDo you feel stress - tense, restless, nervous, or anxious, or unable to sleep at night because yourmind is troubled all the time - these days?Only a gxmeds7308/26/2024 Exercise Vital SignAnswerDate RecordedOn average, how many [...] steady place to sleep or slept in [facility] (including now)?No07/10/2023Housing Stability Vital SignAnswerDate RecordedIn the last 12 months, was there a time when you were not able to pay the mortgage or rent on time?No08/26/2024Number of Times Moved in the Last Year Not on file08/26/2024t any time in the past 12 months, were you homeless or living in a prison (including now)?No08/26/2024CommentsUnknownSex and Gender InformationValueDate RecordedSex Assigned at BirthNot on fileLegal Sex Lsbupp7709/20/2022 6:50 PM EDTGender IdentityNot on fileSexual OrientationNot on filedocumented as of this encounter Functional Status * AUDIT-C ScoreAnswerDate of MnfvgziuxiExocdc355/18/2025 6:13 PM ESTMychart, Generic * Q1: How [...] or more drinks on one occasion?AnswerDate of ZrwmkdqzvbXowqxhWlmea81/18/2025 6:13 PM Riley Generic * Over the past 2 weeks, how often have you been bothered by any of the following problems?QuestionAnswerDate of AssessmentAuthorLittle interest or pleasure in doing thingsNot at all01/26/2025 6:14 PM Marilyn Gibson MA Feeling down, depressed, or hopelessNot at all01/26/2025 6:14 PM Marilyn Gibson MAPatient Health Questionnaire-2 Fynpl383 6:14 PM EDT Marilyn Forman MA * [...] Plan of Treatment DateTypeDepartmentCare Team (Latest Contact Info)Vxyolkhwyhn15/20/2025 10:30 AM ESTOffice Visit [facility] [address] [place] [address] Rain Souza MD [address] [place] [address] documented as of this encounter Procedures Procedure NamePriorityDate/TimeAssociated DiagnosisCommentsBLOOD CULTURE 2 Zjucptx5509/10/2023 2:22 PM EST BLOOD CULTURE 6Ipqelvv79/04/2024 2:05 PM EST ECG 12-LEAD08/31/2023 6:08 PM [...] BLOOD ORDERABLESFinal ResultPerforming OrganizationAddressCity/State/ZIP Code Phone Number [facility] * BLOOD CULTURE [...] EST Narrative 09/02/2023 7:32 AM EST [facility] ?[address] ? [place] [address] ? Electrocardiograph Report ? Signed ? Patient: MITZI MACIAS L ?MR#: [id number] ?? : 1970 ?Acct:[id number] ?? Age/Sex: 53 / F ?ADM Date: 08/31/23 ?? Loc: [place] ??214-1 ? Attending Dr: Jacqueline Becerra D.O. ? Ordering Physician: Andra Alcala ?? Date of Service: 08/31/23 ?? Procedure(s): ECG 12 lead ?? Accession Number(s): [id number] ? cc: ?[facility] ? Test Date: ?2023-08-31 ?? Pat Name: ? MIZTI MACIAS ?Department: ? Room: ? - ?? Gender: ? Female ? 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 : ?1970 ? Requested By: MCKAYLA BERMUDEZHHOLZ ?? Order Number: [id number] ?Reading MD: ?? LAURI ??BALL ? Measurements ?? Intervals ?[place] ? Rate: ? 102 ?P: ?67 ?? SC: ? 144 ?QRS: ?52 ?? QRSD: ? [...] 0732 ? DD/ 1808 ? TD/TT: ? Policy Issue Clerk: Procedure Note Radiology, Radiologist, MD - 09/02/[address] [address] Electrocardiograph Report Signed Patient: MITZI MACIAS LMR#: [id number] : 1970Acct:[id number] Age/Sex: 53 / FADM Date: 08/31/23 Loc: [place] 214-[address]: Jacqueline Becerra D.O. 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 Signed By:09/02/23 0732 DD/ 1808 TD/TT: Policy Issue Clerk: Authorizing ProviderResult TypeResult StatusAmy Cari PACLSPRINGHILL MEDICAL CENTERYNC IMAGINGFinal Result documented in this encounter Visit Diagnoses Not on filedocumented in this encounter Care Teams Team MemberRelationshipSpecialtyStart DateEnd Date Ty Amin MD PCP - GeneralFamily Medicine Ty Amin MD PCP - GeneralFamily Medicine09/20/23 Mckayla Blas NP [address] [place] [address] [facility]/ Mckayla Blas NP Nurse PractitionerFamiSouth Georgia Medical Center Berrien09/20/23documented as of this encounter
--- OUTSIDE RECORDS SUMMARY | 2025-05-08 11:40 | XMS_ITS | Patient Health Record ---
Author Organization [facility] [place] Address [address] [place] [address] Care Team Providers Care Hospitality Job Titles Name Role Phone Mckayla Blas CNP Primary Care Provider Unavail able Armando Yañez Unavailable [phone] Allergies No Known Allergies Results Component Value Reference Range Notes PROF CHEM 8 (BAS METB) (Not yet reviewed by provider) Interpretation: Performing Lab: Notes/Report: [facility] , Sodium 142 136-145 mmol/L Potassium4.23.5-5.1 mmol/KWzraqiyi56978-791 mmol/LCarbon Eqmgund67.521.0-32.0 mmol/LAnion Gap11.0Gkxixnq21547-689 mg/dLBlood Urea Pmrhtysv09.07.0-18.0 mg/dL Creatinine0.820.55-1.02 mg/dLEstimated GFR ( Katty>60>=60 mL/min/1.73m 2Estimated GFR (Non- Kristen>60>=60 mL/min/1.73m 2BUN Creatinine Ratio19.5 Calcium9.08.5-10.1 mg/dLPerforming Lab:see noteML - [facility] LBCBC AUTO DIFF (Not yet reviewed by provider) Interpretation: Performing Lab: Notes/Report: [facility] ,White Blood Count12.84.0-11.0 10 3/uLRed Blood Count5.524.20-5.40 10 6/uL Yqkabofwiv41.112.0-16.0 g/lYEefbuweqlo45.936.0-48.0 %Mean Corpuscular Myyyeo70.2 81.0-99.0 fLMean Corpuscular Fgyhvdvrez51.226.7-34.0 pgMean Corpuscular HGB Conc 31.629.9-35.2 g/dLRed Cell Distribution Width14.611.0-15.0 %Platelet Yjjxi074 150-450 10 3/uLMean Platelet Ddutbz72.89.5-13.5 fLNeutrophils Percent Auto67.0 43.0-75.0 %Lymphocytes Percent Auto25.120.5-60.0 %Monocytes Percent Auto5.21.7- 12.0 %Eosinophils Percent Auto1.90.9-7.0 %Basophils Percent Auto0.50.2-2.0 % Immature Granulocytes Pct Auto0.30.0-0.5 %Neutrophils Absolute Auto8.61.4-6.5 10 3/uLLymphocytes Absolute Auto3.21.2-3.8 10 3/uLMonocytes Absolute Auto0.70.3-0.8 10 3/uLEosinophils Absolute Auto0.20.0-0.7 10 3/uLBasophils Absolute Auto0.10.0- 0.1 10 3/uLImmature Granulocytes Abs Auto0.040.00-0.03 10 3/uLPerforming Lab:see noteML - [facility] LB Reason For Referral No Information [...] Duration: 90 DaysActiveVitamin D (Ergocalciferol) 1.25 MG (14974 UT)Oral; Duration: 90 DaysActiveBreztri Aerosphere 160-9-4.8 MCG/ACTInhalation; Duration: 30 DaysActiveSimvastatin 10 MG Oral; Duration: 90 DaysActiveRoflumilast 250 MCGOral; Duration: 28 DaysActive Immunizations Vaccine Route Administration Date Status Comme nts Flu, Fluzone (40495) 6-35mo, multi-dose vial (8422-3307) Unknown 05/18/2023 Administered Pneumococcal (Pneumovax 23)Ruqqmtd7804/16/20170338YyqapagdwwshSMRX-LFV-2 (COVID 19 Pfizer 30mcg/0.3mL)Zrlrqib4507/19/2021dministered Social History Tobacco Use: Social History Observation [...] due to ty pe 2 diabetes mellitus (4080536030257) Type 2 diabetes mellitus with foot ulcer (E11.621) ActiveconfirmedProblemMorbid obesity (disorder) (442810510)Morbid (severe) obesity due to excess calories (E66.01)ActiveconfirmedProblemVenous ulcer of lower extremity due to chronic peripheral venous hypertension (920459012560016) Chronic venous hypertension (idiopathic) with ulcer of left lower extremity (I87.312)ActiveconfirmedProblemChronic non-pressure ulcer of calf extending to fat level (64372111856229806)Non-pressure chronic ulcer of other part of right lower leg with fat layer exposed (L97.812)ActiveconfirmedProblemChronic ulcer of skin of lower leg (disorder) (46369506511199824)Non-pressure chronic ulcer of other part of left lower leg limited to breakdown of skin (L97.821)Active confirmedProblemNon-pressure chronic ulcer of other part of left lower leg with fat layer exposed (L97.822)ActiveconfirmedProblemLong-term current use of inhaled steroid (010221369)retirement (current) use of inhaled steroids (Z79.51) ActiveconfirmedProblemCOPD - Chronic obstructive pulmonary disease (18452992) COPD (chronic obstructive pulmonary disease) (J44.9)ActiveconfirmedProblem Gastroesophageal reflux disease (022656952)GERD (gastroesophageal reflux disease) (K21.9)ActiveconfirmedProblemHypertension (10402572)HTN (hypertension) (I10)ActiveconfirmedProblemObstructive sleep apnea syndrome (42166871)DANIEL (obstructive sleep apnea) (G47.33)ActiveconfirmedProblemLumbar radiculopathy (843540536)Lumbar radiculopathy (M54.16)ActiveconfirmedProblemDiabetes mellitus type 2 (disorder) (86868409)DM2 (diabetes mellitus, type 2) (E11.9)Active confirmedProblemMental disorder caused by drug (825327209)Cigarette nicotine dependence with nicotine-induced disorder (F17.219)ActiveconfirmedProblem Leukocytosis (595987216)Leukocytosis (D72.829)ActiveconfirmedProblemAcute exacerbation of chronic obstructive airways disease (207469702)COPD with exacerbation (J44.1)ActiveconfirmedProblemLong-term current use of insulin (970867721)Current use of insulin (Z79.4)ActiveconfirmedProblemIdiopathic chronic venous hypertension of both lower extremities with ulcer (I87.313)Active confirmedProblemNon-prs chr ulcer oth prt l low leg limited to brkdwn skin (L97.821)ActiveconfirmedProblemStasis dermatitis co-occurrent with venous ulcer of right lower extremity due to chronic peripheralvenous hypertension (874371477111220)Idiopathic chronic venous hypertension of right lower extremity with ulcer (I87.311)ActiveconfirmedProblemChronic venous hypertension with ulcer and inflammation involving left side (I87.332)ActiveconfirmedProblemAbnormal arterial blood gas (876677490)Elevated carbon dioxide level (R79.81)Active confirmedProblemSkin ulcer of right knee, limited to breakdown of skin (L97.811) ActiveconfirmedProblemDiabetes mellitus (35750581)Diabetes mellitus (E11.9) Activeconfirmed Encounters Encounter Location Date Provider Diagnosis [facility] [place] [address] [place] [address] 12/02/2024 Armando Yañez Plan Of Treatment Pending Test Test Name Order Date CBC AUTO DIFF 08/27/2024 PROF CHEM 8 (BAS METB) 08/27/2024 [facility] SEGMENTAL PRESSURES 04/24/2024 Insurance Providers Payer Name Payer Address Payer Phone Subscriber Number Group Number Insured Name Patient Relationship to Insured Coverage Start Date Coverage End Date [facility] D[facility] PR[employer] [facility]ICARE [address] [place] [address] [id number] Ottoniel Macias - patient is the insured [...] (hyperlipidemia) E78.5 Elevated carbon dioxide level R79.81 retirement (current) use of inhaled stero ids Z79.51 Anxiety and depression F41.8 GERD (gastroesophageal reflux disease) K 21.9 Surgical History Surgery Date(Month/Year) hysterectomy cholecystectomytoe surgeryHospitalization History Reason Date(Month/Year) Pneumonia -[facility] 08/31/2023 COPD Exacerbation-[facility] 09/10/2023
--- OUTSIDE RECORDS SUMMARY | 2025-05-08 11:40 | XMS_ITS | Clinical Summary ---
Author Organization [facility] Address [address] [place] [address] Care Team Providers Care Data Migration Consultant Name Role Phone Mckayla Blas MD Primary Care Provider [phone] Allergies No known active allergies Medications MedicationSigDispense [...] INJECT 48 UNITS SUBCUTANEOUSLY TWICE DAILY02/06/2022ctive HYDROcodone-acetaminophen (Eden) 5-325 mg tablet TAKE 1 TABLET BY MOUTH THREE TIMES A DAY NEEDED FOR PAIN MUST LAST 30 DAYS 11/09/2023ctive DULoxetine (Cymbalta) [address] capsule Take 1 tablet by mouth in the morning.Active ergocalciferol (Vitamin D-2) 1.25 MG (32494 Units) capsule Take 1.25 mg by mouth.Active [...] Problems ProblemNoted DateDiagnosed DateCellulitis of left lower awiewpeec41/03/2025Fever 12/09/2024igarette nicotine dependence without ggxqmcyaltef47/21/2025Vitamin D deficiency, qkdomdigwsn40/21/2025ntibiotic-induced yeast vkvfeuazk31/19/2025 Idiopathic chronic venous hypertension of both lower extremities with ulcer 08/27/2024Long term current use of inhaled oflmpuw0508/27/2024Vitamin deficiency 08/27/2024ad odor of urine08/08/2024hronic diastolic heart pyhtbwz8508/08/2024 Myelolipoma of adrenal gland07/14/2024ritical limb ischemia of right lower /12/2024Venous ulcer of right leg06/19/2024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 2 diabetes xugmxdff98/05/2024 Overview (08/08/2024): Eye exam 05/13/24 Hyperpigmentation of skin04/14/20246207Aywkxuorc47Headache Left flank painMixed incontinence urrent Overview (11/14/2023): Added secondary to documentation in Social History. Candidiasis of ylxeka00 Overview (11/14/2023): Last Assessment & Plan: Skin care, Non-seasonal allergic jhubzvfd60Encounter for screening mammogram for malignant neoplasm of staixv69lass 3 severe obesity with serious comorbidity and body mass index (BMI) of 50.0 to 59.9 in adultdrenal mass 1 cm to 4 cm in iywliynm19/11/2024 11/14/20235364Putprynvpur28ervical avxihb83 Chronic pain of both kneesecreased functional mobility GERD (gastroesophageal reflux disease) Buvkfmusaqnvog13InsomniaKidney stone AD (peripheral artery disease)neumonia adiculopathy, lumbar fzaxau49Unilateral primary osteoarthritis, right hipVenous insufficiency Overview (11/14/2023): Last Assessment & Plan: Open wounds refer to [facility] Wound Care Vaginal yeast ljjsocvnl96nxiety and lhyiwgrcfu21/02/2024 11/14/2023ilateral lower extremity edema Overview (11/14/2023): Last Assessment & Plan: Continue w pamela, discussed skin care regimines as well Diabetic bnbmpejqlv83Hypertension Overview (11/14/2023): Last Assessment & Plan: No changes today in meds Obstructive sleep apnea Overview (11/14/2023): Last Assessment & Plan: DME needs to send her a new mask for her machine, I have emphasized the importance of getting in touch with them so she can do this Type 2 diabetes mellitus with complication, with long-term current use of rnrilze31 Overview (11/14/2023): Last Assessment & Plan: Continue with [facility] for management RAGHU urpurqge76Other chronic painMI 50.0- 59.9, adult05/21/Easy pvvnjlwp46losed fracture of upper end of /27/bdominal Fdixkz88ardiomegaly Overview (11/14/2023): borderline borderline Acute respiratory distress trungjsm96Gout Resolved Problems ProblemNoted DateDiagnosed DateResolved DatePulmonary vmvojpbucgwh46/11/2024 Overview (11/14/2023): Last Assessment & Plan: Needs to wear her PAP I am also going to have her see [facility] Cardiology as well Family History Medical HistoryRelationNameCommentsHeart attackPaternal GrandmotherRelationName StatusCommentsFatherDeceasedMotherDeceasedPaternal Grandmother Social History Tobacco UseTypesPacks/DayYears UsedDateSmoking Tobacco: Every DayCigarettes Smokeless Tobacco: Never Tobacco Cessation:Ready to Q uit: Not Asked; Counseling Given: Not Answered Alcohol UseStandard Drinks/WeekCommentsNot Currently0 (1 standard drink = 0.6 oz pure alcohol)ID Safety & EnvironmentAnswerDate RecordedFear of Current or Ex-PartnerNot on file08/30/2023Emotionally AbusedNot on file08/30/2023hysically AbusedNot on file08/30/2023Sexually AbusedNot on file08/30/2023hysically or Sexually AbusedNot on file08/30/2023CommentsUnknownSex and Gender InformationValueDate RecordedSex Assigned at BirthNot on fileLegal SexFemale 01/04/2022 10:08 PM EDTGender IdentityNot on fileSexual OrientationNot on file Last Filed Vital Signs Vital SignReadingTime TakenCommentsBlood Dkkobevd986/6407 11:41 AM EDT Fvsbt293601/06/2025 11:41 AM WSSVvfkqesymbt34.7 ??C (98.1 ??F)12/12/2018 2:44 PM EDTRespiratory Rate--Oxygen Jueiryabzy24%01/06/2025 11:41 AM EDTInhaled Oxygen Concentration--Fxudcs195 kg (376 lb)01/06/2025 11:41 AM TGESfvqyx679.2 cm (5' 7 )01/06/2025 11:41 AM EDTBody Mass Index58.8907 11:41 AM EDT Plan of Treatment Health MaintenanceDue DateLast DoneCommentsCT Hxansgmutihz38/17/1971Colonoscopy 1970Colorectal Cancer Rnwzxbinv80/17/1971Diabetes: Hemoglobin A1C 1970FIT-DNA1970FIT1970FOBT1970Medicare Annual Wellness (AWV)1970 1958Ocsaxvspcpdlk97/17/1971Diabetes: Retinopathy Rmqrtgiid07/17/1981 Depression Cderggqav19/17/1983Diabetes: Urine Protein Tyakbhird79/17/1990 Hepatitis B Vaccines (1 of 3 - 19+ 3-dose series)1989Pap Smear1991 Adult Yfdeuex8608/25/1992Cervical Cancer Hfyvgkjzp55/17/2001HPV/Laaazk5808/25/2000 Mxahavzvi41/17/2011Pneumococcal Vaccine: Pediatrics (0 to 5 Years) and At-Risk Patients (6 to 64 Years) (2 of 2 - PCV)Zoster Vaccines (1 of 2)2020OVID-19 Vaccine (4 - season)/05/2022, 10/28/2020, 10/08/2020Influenza Vaccine (#1)/04/2023, 04/16/2017, 05/10/2016, Additional [...] Care Teams Team MemberRelationshipSpecialtyStart DateEnd Date Mckayla Blas MD [address] [place] [address] PCP - GeneralNurse Practitioner11/13/23
--- OUTSIDE RECORDS SUMMARY | 2025-05-08 11:40 | XMS_ITS | Clinical Summary ---
Author Organization [facility] Address [address] [place] [address] Care Team Providers Care High Density Finishing Operator Name Role Phone Ty Amin MD Primary Care Provider Mckayla Blas NP Unavailable [phone] Allergies No known active allergies Medications [...] (six) hours if needed for wheezingActive HYDROcodone-acetaminophen (Jasper) 5-325 MG tablet 1 tablet as needed [...] complications ([facility]) USE TO TEST BLOOD SUGAR 4 TIMES DAILY 400 strip 4Active baclofen (Lioresal) 10 MG tablet Take 10 mg by mouth in the morning and 10 mg in the evening and 10 mg before bedtime.4Active naloxone (Narcan) 4 mg/0.1 mL nasal spray Administer 4 mg into affected nostril(s) if ifjskn104Active nicotine (Nicoderm, Step 1) 21 MG/24HR patch [...] DAYS 5Active ergocalciferol (Vitamin D2) 1.25 MG (91731 UT) capsule Indications:Vitamin D deficiency, unspecifiedTake 1 [...] of insulin ([facility])Chew 1 tablet (81 mg) Daily 90 tablet [...] of insulin ([facility])Inject 58 Units under the skin in the morning and 58 Units before bedtime. 104.4 mL 107501/6Active insulin glargine (Lantus SoloStar) 100 UNIT/ML pen Indications:Type 2 diabetes mellitus with hyperglycemia, with long-term current use of insulin ([facility])INJECT 58 UNITS SUBCUTANEOUSLY TWICE A DAY 105 [...] right lower extremity due to peripheral venous iqbnssckakav38/03/9637Bkgih43/03/2025 Assessment & Plan (12/09/2024 7:26 AM EDT): Tylenol prn fever Finish atb's Cellulitis of left lower lfzctosri95/03/2025 Assessment & Plan (12/09/2024 11:27 AM EDT): Finish atbs Keep appt with wound care A febrile Will call me if worsening in sxs Cigarette nicotine dependence without cbwircwbaqqe48/21/2025 Assessment & Plan (10/27/2024 2:40 PM EDT): Is currently using chantix, and is doing well, less desire, smoking less Vitamin D deficiency, xjfuarnmnqh55/21/2025Gastro-esophageal reflux disease without ldnmrmfzhje04/21/2025 Assessment & Plan (01/26/2025 7:51 AM EDT): Recommendations: freq small meals, nothing to eat or drink at least 2 hours prior to bed, limit caffeine, alcohol, as well as spicy foods Meds to limit or avoid if possible: NSAIDS Elevate HOB if possible Current meds: ompeprazole Morbid (severe) obesity due to excess tatkvile94/19/2025 Assessment & Plan (01/26/2025 6:46 PM EDT): [...] as possible assisted current use of inhaled oufbvco3308/27/2024Non-pressure chronic ulcer of other part of left lower leg limited to breakdown of skin08/27/2024Vitamin /19/2025ntibiotic-induced yeast nukfkfqad49/19/2025hronic diastolic heart nmvdjmj6808/08/2024 Assessment & Plan (01/26/2025 7:52 AM EDT): [...] counseling 07/14/2024ritical limb ischemia of right lower irnabzutb36/12/2024 Assessment & Plan (07/14/2024 7:32 PM EST): Saw vascular, does have narrowing in arteries in legs, and thus the wounds not healing At this point they strongly urge to quit smoking or risk limb amputation Cont asa and statin Also good blood pressure and sugar control 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 Does have left OM, will treat for this and if not better can try ubrelvy #3 samples given: Lot [id number], exp 03/2025 Mixed vjxeivqcozjn24/08/2327Hcddjxtsj52/08/2024Encounter for screening mammogram for malignant neoplasm of ltpxby6111/01/2023Non-seasonal allergic rhinitis 11/01/2023andidiasis of oxaylu4211/01/2023 Assessment & Plan (11/01/2023 11:21 AM EDT): Skin care, Ukqyhwsj04/11/2024 Assessment & Plan (01/26/2025 6:44 PM EDT): elavil Radiculopathy, lumbar xypmhd1609/17/2023 Assessment & Plan (07/14/2024 7:36 PM EST): [...] is necessary they take over prescribing Pancreatitis ([facility])09/17/2023OPD aisdsdirmrqe58/11/2024 Assessment & Plan (12/09/2024 11:26 AM EDT): [...] non labored and no cyanosis noted Venous epejaswsvidcw92/11/2024 Assessment & Plan (11/01/2023 11:17 AM EDT): Open wounds refer to [facility] Wound Care Pulmonary tjpmbgkodbtr46/11/2024 Assessment & Plan (01/26/2025 7:52 AM EDT): Has seen [facility] Cardiology Assessment & Plan (12/09/2024 7:23 AM EDT): Has seen [facility] Cardiology Assessment & Plan (11/15/2023 3:49 PM EDT): Saw [facility] Cardiology See notes Going to see Pulmonary Assessment & Plan (09/27/2023 1:03 PM EDT): Needs to wear her PAP I am also going to have her see [facility] Cardiology as well PAD (peripheral artery disease)09/17/2023 Assessment & Plan (10/27/2024 2:38 PM EDT): Asa, statin Quit smoking BP and DM control Assessment & Plan (07/14/2024 7:32 PM EST): Asa, statin Quit smoking BP and DM control Malignant neoplasm of cervix uteri, mezxaopdzbk63/11/2024 Assessment & Plan (08/27/2024 7:33 AM EST): Had in the past, had hysterectomy Gzjpszpkpho20/11/2024Unilateral primary osteoarthritis, right hip09/17/2023 Chronic pain of both knees09/17/20230509Rnackfpjqkjvtt11/11/2024 Assessment & Plan (01/26/2025 7:49 AM EDT): On statin therapy Check labs yearly and prn dose changes Assessment & Plan (08/27/2024 7:36 AM EST): On statin therapy Check labs yearly and prn dose changes Decreased functional xcivpxmv05/11/2024drenal mass 1 cm to 4 cm in diameter 09/17/2023 Assessment & Plan (07/14/2024 7:33 PM EST): Continue with Urology Kidney stone09/17/2023 Assessment & Plan (07/14/2024 7:32 PM EST): Continue with Urology Qilurdgfqqf47/11/2024Vaginal yeast emqwnlnza09/09/2024 Assessment & Plan (01/26/2025 6:46 PM EDT): [...] reach out to DME for help Diabetic ekcialruth07/02/2024 Assessment & Plan (01/26/2025 7:53 AM EDT): [...] spiriva Will trial breztri: #2 samples given [id number], exp 03/03, rinse mouth after use Give [...] no changes in inhalers Recommend quitting smoking Zvfyxn7107/10/2023 Assessment & Plan (01/26/2025 6:44 PM EDT): Current meds: albuterol, duoneb, Has lactation consultant 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 Assessment & Plan (08/27/2024 7:30 AM EST): Current meds: albuterol, duoneb, Has lactation consultant 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 Assessment & Plan (01/17/2024 12:36 PM EDT): Cont w inhalers, pulmonology Quit smoking Jdkctglgsazd54/02/2024 Assessment & Plan (01/26/2025 7:52 AM EDT): [...] from hospital, lost script I did contact [facility] in [place], they will get another fill on this and have ready for patient Fu in 4 weeks Assessment & Plan (07/10/2023 11:59 AM EST): Stable on current dose of meds Type 2 diabetes mellitus with complication, with long-term current use of rreshxr5207/10/2023 Assessment & Plan (01/26/2025 7:50 AM EDT): [...] odonnell for management of diabetes Anxiety and aoblmqvlca69/02/2024 Assessment & Plan (01/26/2025 6:46 PM EDT): [...] discussed skin care regimines as well RAGHU ipudmqgl50/11/8414Znydofmmddme68/19/2018 Overview (09/17/2023): borderline Gout10/25/2017 Resolved Problems ProblemNoted [...] left ear without spontaneous rupture of tympanic rtcnlepe46lass 3 severe obesity with serious comorbidity and body mass index (BMI) of 50.0 to 59.9 in adult09/27/2023 04/14/20241901Nmaehfbob09/11/202404/GERD (gastroesophageal reflux disease) Assessment & Plan (10/27/2024 [...] (BMI) of 60.0 to 69.9 in adult/bdominal krbweo58 Encounters DateTypeDepartmentCare XyobAatvgwukltd75/01/2025[facility] [address] [place] [address] Mckayla Blas NP Tobacco user; Encounter for smoking cessation mllrbbutcz64/22/2025Refill [facility] [address] [place] [address] Amber Pinzon LPN Type 2 diabetes mellitus with other circulatory complications (HCC)02/26/2025 Refill [facility] [address] [place] [address] Rain Odonnell MD Type 2 diabetes mellitus with other circulatory complications (HCC)02/18/2025 Abstract [facility] [address] [place] [address] Mckayla Blas NP 02/14/2025Refill [facility] [address] [place] [address] Rain Odonnell MD Type 2 diabetes mellitus with hyperglycemia, with long-term current use of insulin (HCC)from Last 3 Months Immunizations ImmunizationAdministration DatesNext DueInfluenza Whole05/02/2013Influenza, L2N1-461762/09/2017,05/10/2016Influenza, Qdfnfxxxydy34/10/2023,04/16/2017, 05/10/2016Influenza, injectable, tesvovakeklo06/10/2023,05/02/2013MMR01/29/1998 Pneumococcal Polysaccharide SAGK3005 Family History Medical HistoryRelationNameCommentsNo Known ProblemsFatherVaricose veinsFather's [...] other written material from your doctor or pharmacy?Urtxko8708/26/2024Humiliation, Afraid, Rape, and Kick questionnaireAnswerDate RecordedWithin the [...] relatives?Once a week08/26/2024How often do you attend congregation or congregational services?More than 4 times per year 08/26/2024Do you belong to any clubs or organizations such as congregation groups, unions, fraternal or athletic groups, or school groups?No08/26/2024How often do you attend meetings of the clubs or organizations you belong to?Never08/26/2024 Are you , , , , never , or living with a partner?Pjcdspm4208/26/2024UDIT-CAnswerDate RecordedQ1: How often do you have a [...] hard at all08/26/2024PHQ-2AnswerDate RecordedPatient Health Questionnaire-2 Score0 01/26/2025[facility] [place] [facility] - Occupational Stress QuestionnaireAnswerDate RecordedDo you feel stress - tense, restless, nervous, or anxious, or unable to sleep at night because yourmind is troubled all the time - these days?Only a jvqxdz0008/26/2024Exercise Vital SignAnswerDate Recorded On average, how many [...] homeless or living in a half-way (including now)?No08/26/2024 CommentsUnknownSex and Gender InformationValueDate RecordedSex Assigned at BirthNot on fileLegal SuzRrkuzx22/15/2023 6:50 PM EDTGender IdentityNot on fileSexual OrientationNot on file Last Filed Vital Signs Vital SignReadingTime TakenCommentsBlood Xpdcfhxf655/70001/29/2025 9:48 AM EDT Yinsh5483/24/2025 9:48 AM CWJIbptzxgdwma00.9 ??C (98.5 ??F)01/26/2025 6:11 PM EDTRespiratory Aaoo080201/29/2025 9:48 AM EDTOxygen Xgrwyxhirt30%01/29/2025 9:48 AM EDTInhaled Oxygen Concentration--Poxuma805 kg (360 lb)01/29/2025 9:48 AM EDT Limvgu354.2 cm (5' 7 )01/29/2025 9:48 AM EDTBody Mass Index56.3807 9:48 AM EDT Plan of Treatment DateTypeDepartmentCare Team (Latest Contact Info)Ojnpowxiicy82/20/2025 10:30 AM ESTOffice Visit [facility] [address] [place] [address] Rain Odonnell MD [address] [place] [address] Health MaintenanceDue DateLast DoneCommentsCT Svdotrejuldn38/17/1971Colonoscopy 1970FIT1970FOBT1970 0023Tefqfxqswhrth25/17/1971HPV/Mxfnjq7108/25/2000 Pap Smear04/, 10/08/20152392Ejwpnwxtc59/07/340684/01/2024, 12/14/2023, 11/22/2022Influenza Vaccine (#1), 05/18/2023, 04/16/2017, Additional history existsColorectal Cancer Lzgrrxyuv74/26/2026 FIT-DNA6008/03/2022ervical Cancer ScreeningDiscontinued Procedures Procedure NamePriorityDate/TimeAssociated DiagnosisCommentsMM TOMOSYNTHESIS SCREENING BI12/14/2023 11:21 AM EDT from Last 3 Months or Most Recently Relevant to Health Maintenance Results * MM TOMOSYNTHESIS SCREENING BI (12/14/2023 11:21 AM EDT)Anatomical Region LateralityModalityOtherSpecimen (Source)Anatomical Location / Laterality Collection Method / VolumeCollection TimeReceived Time12/14/2023 11:21 AM EDT Narrative 12/14/2023 11:22 AM EDT [facility] ?[address] ? [place] [address] ? Mammography Report ? Signed ? Patient: MACIAS,SINA L ?MR#: [id number] ?? : 1970 ?Acct:[id number] ?? Age/Sex: 53 / F ?ADM Date: 12/13/23 ?? Loc: MAMMO ? Attending Dr: Mckayla Blas MACHINE ENGINEER ? Ordering Physician: Wan,Mckayla MACHINE ENGINEER ?Results: ? Date of Service: 12/13/23 ?Follow Up: ? Procedure(s): MM tomosynthesis screening BI ?? Accession Number(s): [id number] ? cc: Mckayla Blas MACHINE ENGINEER ? Patient Name: ? SINA MACIAS ? MR#: [id number] ? : 1970 ? Exam Date: 12/13/2023 [...] at age ??75. ? LOCATION: ? [facility] ? BREAST COMPOSITION: ? The breasts are [...] ?12/14/231121 ? DD/ 20 ? TD/TT: ? Quantitative Strategy Analyst: Procedure Note Radiology, Radiologist, MD - 12/14/2023 [place] [address] Mammography Report Signed Patient: SINA MACIAS LMR#: [id number] : 1970Acct:[id number] Age/Sex: 53 / FADM Date: 12/13/23 Loc: MAMMO Attending Dr: Mckayla Blas NP Ordering Physician: Mckayla Blas NPResults: Date of Service: 12/13/23Follow Up: Procedure(s): MM tomosynthesis screening BI Accession Number(s): [id number] cc: Mckayla Blas NP Patient Name: SINA MACIAS MR#: [id number] : 1970 Exam Date: 12/13/2023 Ordering Doctor: [...] unknown cancer at age 75. LOCATION: [facility] BREAST COMPOSITION: The breasts are [...] M.D. Signed By:12/14/23 1122 DD/ 1121 TD/TT: Quantitative Strategy Analyst: Authorizing ProviderResult TypeResult StatusLisa Wan NPCLINISYNC IMAGING Final Result from Last 3 Months or Most Recently Relevant to Health Maintenance Insurance Care Teams Team MemberRelationshipSpecialtyStart DateEnd Date Ty Amin MD PCP - GeneralFamily Medicine09/20/23 Mckayla Blas NP Nurse PractitionerFamily Medicine09/20/23
--- OUTSIDE RECORDS SUMMARY | 2025-05-08 11:40 | XMS_ITS | Encounter Summary ---
Author Organization [facility] Address [address] [place] [address] Care Team Providers Care Dobby Loom Chain Pegger Name Role Phone Ty Amin MD Primary Care Provider [phone] Mckayla Blas TEXTILE ENGINEER Unavailable [phone] Mckayla Blas NP Unavailable [phone] Encounter Details DateTypeDepartmentCare Team (Latest Contact Info)Xzrvrkxjlcx58/07/2024Clinisync Result Encounter [facility] Unsolicited Mckayla Blas NP [address] [place] [address] Social History Tobacco UseTypesPacks/DayYears UsedDateSmoking Tobacco: Every [...] relatives?Once a week08/26/2024How often do you attend islam or baptist services?More than 4 times per year08/26/2024Do you belong to any clubs or organizations such as islam groups, unions, fraternal or athletic groups, or school groups?No08/26/2024How often do you attend meetings of the clubs or organizations you belong to?Never08/26/2024re you , , , , never , or living with a partner?Aymttlz7708/26/2024UDIT-C AnswerDate RecordedQ1: How often do you have [...] heating?Not hard at all08/26/2024PHQ-2AnswerDate RecordedPatient Health Questionnaire-2 Cpapa998[facility] [place] [facility] Occup[facility] - Occupational Stress QuestionnaireAnswerDate RecordedDo you feel stress - tense, restless, nervous, or anxious, or unable to sleep at night because yourmind is troubled all the time - these days?Only a wgnhtb9808/26/2024 Exercise Vital SignAnswerDate RecordedOn average, how many [...] steady place to sleep or slept in randolphelter (including now)?No07/10/2023Housing Stability Vital SignAnswerDate RecordedIn the [...] RecordedSex Assigned at BirthNot on fileLegal Sex Margdl1509/20/2022 6:50 PM EDTGender IdentityNot on fileSexual OrientationNot on filedocumented as of this encounter Functional Status * AUDIT-C ScoreAnswerDate of XggsknbeksJpceyd573/18/2025 6:13 PM Riley, Generic * Q1: How [...] or more drinks on one occasion?AnswerDate of NvhshtgapyFjndcbWzrsk19/18/2025 6:13 PM Wiliam Lin * Over the past 2 weeks, how often have you been bothered by any of the following problems?QuestionAnswerDate of AssessmentAuthorLittle interest or pleasure in doing thingsNot at all01/26/2025 6:14 PM Marilyn Gibson MA Feeling down, depressed, or hopelessNot at all01/26/2025 6:14 PM Marilyn Gibson MAPatient Health Questionnaire-2 Fiwfd290 6:14 PM EDT Mariyln Forman MA * QuestionAnswerDate of AssessmentAuthorPatient Health [...] Plan of Treatment DateTypeDepartmentCare Team (Latest Contact Info)Sisbkeydjau46/20/2025 10:30 AM ESTOffice Visit [facility] [address] [place] [address] Rain Souza MD [address] [place] [address] documented as of this encounter Procedures Procedure NamePriorityDate/TimeAssociated DiagnosisCommentsMM TOMOSYNTHESIS SCREENING BI12/14/2023 11:21 AM EDT documented in this encounter Results * MM TOMOSYNTHESIS SCREENING BI (12/14/2023 11:21 AM EDT)Anatomical Region LateralityModalityOtherSpecimen (Source)Anatomical Location / Laterality Collection Method / VolumeCollection TimeReceived Time12/14/2023 11:21 AM EDT Narrative 12/14/2023 11:22 AM EDT [facility] ?[address] ? [place] [address] ? Mammography Report ? Signed ? Patient: MACIAS,MITZI L ?MR#: [id number] ?? : 1970 ?Acct:[id number] ?? Age/Sex: 53 / F ?ADM Date: 12/13/23 ?? Loc: MAMMO ? Attending Dr: Mckayla J Aichholz TEXTILE ENGINEER ? Ordering Physician: Aichholz,Mckayla TEXTILE ENGINEER ?Results: ? Date of Service: 12/13/23 ?Follow Up: ? Procedure(s): MM tomosynthesis screening BI ?? Accession Number(s): [id number] ? cc: Mckayla Blas TEXTILE ENGINEER ? Patient Name: ? MITZI MACIAS ? MR#: [id number] ? : 1970 ? Exam Date: 12/13/2023 [...] at age ??75. ? LOCATION: ? [facility] ? BREAST COMPOSITION: ? The breasts are [...] ?12/14/232 ? DD/ 1121 ? TD/TT: ? Airdox Fitter: Procedure Note Radiology, Radiologist, - 12/14/2023 [place] [address] Mammography Report Signed Patient: MITZI MACIAS LMR#: [id number] : 1970Acct:[id number] Age/Sex: 53 / FADM Date: 12/13/23 Loc: MAMMO Attending Dr: Mckayla Blas NP Ordering Physician: Mckayla Blas NPResults: Date of Service: 12/13/23Follow Up: Procedure(s): MM tomosynthesis screening BI Accession Number(s): [id number] cc: Mckayla Blas NP Patient Name: MITZI MACIAS MR#: [id number] : 1970 Exam Date: 12/13/2023 Ordering Doctor: SAYDA Blas [employer] RADIOLOGY REPORT PROCEDURE: MM TOMOSYNTHESIS SCREENING BI [...] PALPABLE LUMP SHOULD BE BIOPSIED. Dictated by: Neol Ivan M.D. on 12/14/2023 at 11:18 Approved by: Noel Ivan M.D. on 12/14/2023 at 11:21 Dictated By: Noel Ivan M.D. Signed By:12/14/23 1122 DD/ 1121 TD/TT: Airdox Fitter: Authorizing ProviderResult TypeResult StatusLisa Wan NPCLINISYNC IMAGING Final Result documented in this encounter Visit Diagnoses Not on filedocumented in this encounter Care Teams Team MemberRelationshipSpecialtyStart DateEnd Date Ty mAin MD PCP - GeneralFamily Medicine09/20/23 Mckayla Blas NP [address] [place] [address] PCP - [facility]/ Mckayla Blas NP Nurse PractitionerFamily Medicine09/20/23documented as of this encounter
--- OUTSIDE RECORDS SUMMARY | 2025-05-08 11:42 | XMS_ITS | CCD ---
Author Organization [facility] Care Team Providers Care Field Map Technician Name Role Phone James Benavidez Primary Care Provider JAMES BENAVIDEZ Primary Care Unavailable SHENDGE, VITHAL Admitting Unavailable SHENDGE, VITHAL Attending Unavailable AICHHOLZ, MCKAYLA Primary Care Unavailable AICHHOLZ, MCKAYLA Referring Unavailable AICHHOLZ, MCKAYLA J Primary Care Physician [phone] Tico, Stephanie Unavailable OLE RAMIREZ Attending Unavailable OLE RAMIREZ Consulting Unavailable AICHHOLZ, PIPE BOWL PAINT TRIMMER MCKAYLA Primary Care Unavailable OLE RAMIREZ Admitting Unavailable ANTONY SHRESTHA Consulting Unavailable ALONDRA ., JACQUELINE Admitting Unavailable ALONDRA ., JACQUELINE Attending Unavailable AICHHOLZ, PIPE BOWL PAINT TRIMMER MCKAYLA Primary Care Unavailable AFSANEH Loera, DR BOLANOS Consulting Unavailable MARYANNE POWER Consulting Unavailable GLENN KERR Consulting Unavailable YOMAIRA KERR Consulting Unavailable HATTIE GOFF Consulting Unavailable ALONDRA ., JACQUELINE Consulting Unavailable TICO, STEPHANIE Attending Unavailable TICO, STEPHANIE Consulting Unavailable AICHHOLZ, PIPE BOWL PAINT TRIMMER MCKAYLA Primary Care Unavailable TICO, STEPHANIE Admitting Unavailable REGLA ., DR DUMONT Admitting Unavailable AICHHOLZ, PIPE BOWL PAINT TRIMMER MCKAYLA Primary Care Unavailable REGLA ., DR DUMONT Attending Unavailable ARAUZ ., DR DUMONT Consulting Unavailable COLLIN HUERTAS Consulting Unavailable CECILIA KAUFMAN Admitting Unavailable CECILIA KAUFMAN Attending Unavailable AICHHOLZ, PIPE BOWL PAINT TRIMMER MCKAYLA Primary Care Unavailable COMFORT PRETTY Attending Unavailable COMFORT PRETTY Admitting Unavailable AICHHOLZ, PIPE BOWL PAINT TRIMMER MCKAYLA Primary Care Unavailable AICHHOLZ, PIPE BOWL PAINT TRIMMER MCKAYAL Admitting Unavailable AICHHOLZ, PIPE BOWL PAINT TRIMMER MCKAYLA Primary Care Unavailable AICHHOLZ, PIPE BOWL PAINT TRIMMER MCKAYLA Attending Unavailable AICHHOLZ, PIPE BOWL PAINT TRIMMER MCKAYLA Consulting Unavailable LAKSHMIPATHY ., NARENDRANATH Attending Anette vailable LAKSHMIPATHY ., NARENDRANATH Consulting Anette vailable LAKSHMIPATHY ., NARENDRANATH Admitting Anette vailable AICHHOLZ, PIPE BOWL PAINT TRIMMER MCKAYLA Primary Care Unavailable VALENZUELA ., GIL Consulting Unavailable MORTENSEN ., DR CHAPARRO Aguillon Attending Unavailable MORTENSEN ., DR CHAPARRO Aguillon Admitting Unavailable AICHHOLZ, PIPE BOWL PAINT TRIMMER MCKAYLA Primary Care Unavailable VALENZUELA ., GIL Consulting Unavailable MORTENSEN ., DR CHAPARRO Aguillon Admitting Unavailable AICHHOLZ, PIPE BOWL PAINT TRIMMER MCKAYLA Primary Care Unavailable MORTENSEN ., DR CHAPARRO Aguillon Attending Unavailable HALKER ., SUBHASH Consulting Unavailable LAKSHMIPATHY ., NARENDRANATH Admitting Anette vailable LAKSHMIPATHY ., NARENDRANATH Attending Anette vailable AICHHOLZ, PIPE BOWL PAINT TRIMMER MCKAYLA Primary Care Unavailable MORTENSEN ., DR CHAPARRO Aguillon Attending Unavailable MORTENSEN ., DR CHAPARRO Aguillon Admitting Unavailable VALENZUELA ., GIL Consulting Unavailable AICHHOLZ, PIPE BOWL PAINT TRIMMER MCKAYLA Primary Care Unavailable VALENZUELA ., GIL Consulting Unavailable MORTENSEN ., DR CHAPARRO Aguillon Attending Unavailable MORTENSEN ., DR CHAPARRO Aguillon Admitting Unavailable AICHHOLZ, PIPE BOWL PAINT TRIMMER MCKAYLA Primary Care Unavailable HATTIE BRODERICK Attending Unavailable HATTIE BRODERICK Admitting Unavailable AICHHOLZ, PIPE BOWL PAINT TRIMMER MCKAYLA Primary Care Unavailable AICHHOLZ, PIPE BOWL PAINT TRIMMER MCKAYLA Admitting Unavailable AICHHOLZ, PIPE BOWL PAINT TRIMMER MCKAYLA Consulting Unavailable AICHHOLZ, PIPE BOWL PAINT TRIMMER MCKAYLA Primary Care Unavailable AICHHOLZ, PIPE BOWL PAINT TRIMMER MCKAYLA Attending Unavailable AICHHOLZ, PIPE BOWL PAINT TRIMMER MCKAYLA Primary Care Unavailable MISC, DR LESLIE Admitting Unavailable MISC, DR LESLIE Attending Unavailable MISC, DR LESLIE Consulting Unavailable DIAB ., MARIANO Admitting Unavailable DIAB ., MARIANO Attending Unavailable DIAB ., MARIANO Consulting Unavailable AICHHOLZ, PIPE BOWL PAINT TRIMMER MCKAYLA Primary Care Unavailable RASTEGAR, RICCO Consulting Unavailable AICHHOLZ, PIPE BOWL PAINT TRIMMER MCKAYLA Admitting Unavailable AICHHOLZ, PIPE BOWL PAINT TRIMMER MCKAYLA Primary Care Unavailable AICHHOLZ, PIPE BOWL PAINT TRIMMER MCKAYLA Attending Unavailable AICHHOLZ, PIPE BOWL PAINT TRIMMER MCKAYLA Consulting Unavailable DR PATRICIA VELOZ Consulting Unavailable TAMLYN ., CECILIA Attending Unavailable TAMLYN ., CECILIA Admitting Unavailable DR PATRICIA VELOZ Consulting Unavailable AICHHOLZ, PIPE BOWL PAINT TRIMMER MCKAYLA Primary Care Unavailable TAMLYN ., CECILIA Consulting Unavailable MORTENSEN ., DR CHAPARRO Aguillon Attending Unavailable FESTUS ., DR CHAPARRO Aguillon Consulting Unavailable FESTUS ., DR CHAPARRO Aguillon Admitting Unavailable AICHHOLZ, PIPE BOWL PAINT TRIMMER MCKAYLA Primary Care Unavailable HATTIE BRODERICK Attending Unavailable HATTIE BRODERICK Consulting Unavailable HATTIE BRODERICK Admitting Unavailable AICHHOLZ, PIPE BOWL PAINT TRIMMER MCKAYLA Primary Care Unavailable HATTIE BAUTISTA Unavailable AICHHOLZ, PIPE BOWL PAINT TRIMMER MCKAYLA Admitting Unavailable AICHHOLZ, PIPE BOWL PAINT TRIMMER MCKAYLA Attending Unavailable AICHHOLZ, PIPE BOWL PAINT TRIMMER MCKAYLA Consulting Unavailable AICHHOLZ, PIPE BOWL PAINT TRIMMER MCKAYLA Primary Care Unavailable Brennan PHIPPS, Ty Primary Care Provider [phone] Ty Amin MD Primary Care Provider [phone] Aichholz NUT DEHYDRATOR OPERATOR, Mckayla Unavailable Aichholz NUT DEHYDRATOR OPERATOR, Mckayla Unavailable AICHHOLZ, MCKAYLA Attending Unavailable LIBBY, AHMAD F Attending Unavailable AICHHOLZ, MCKAYLA Attending Unavailable AICHHOLZ, MCKAYLA Attending Unavailable AICHHOLZ, MCKAYLA Attending Unavailable LIBBY, AHMAD F Attending Unavailable AICHHOLZ, MCKAYLA Attending Unavailable LIBBY, AHMAD F Attending Unavailable LIBBY, AHMAD F Referring Unavailable AICHHOLZ, MCKAYLA Attending Unavailable Aichholz NUT DEHYDRATOR OPERATOR, Mckayla Unavailable Aichholz NUT DEHYDRATOR OPERATOR-C, Mckayla Rice Primary Care Provider Price Arora DO Attending Provider Adonay DPM, Flynn Rice Attending Provider Aichholz NUT DEHYDRATOR OPERATOR-C, Mckayla Rice Attending Provider AMI ORO Attending Unavailable DAKOTAH BRIDGES Attending Unavailable Elbert ARAUZ Attending Unavailable GAVIOTA ADAMES Attending Unavailable Bob COMMANDING [employer]-PIPE BOWL PAINT TRIMMER, Omero Lovell Attending Unav ailable Adonay DPM, Flynn Arzate Referring Unavailab le Bob [employer]ING [employer]-PIPE BOWL PAINT TRIMMER, Omero Lovell Attending Unav ailable Adonay DPM, Flynn Arzate Attending Unavailab le Bob COMMANDING [employer]-PIPE BOWL PAINT TRIMMER, Omero Lovell Attending Unav ailable Aichholz COMMANDING [employer]-PIPE BOWL PAINT TRIMMER, Mckayla Lennon Primary Care Unava ilable Adonay BAEZM, Flynn Arzate Attending Unavailab lolita Urias DPM, Flynn Arzate Attending Unavailab le Wan COMMANDING [employer]-PIPE BOWL PAINT TRIMMER, Mckayla Lennon Primary Care Unava ilable Bob COMMANDING [employer]-PIPE BOWL PAINT TRIMMER, Omero Lovell Consulting Unav ailable Wan COMMANDING [employer]-PIPE BOWL PAINT TRIMMER, Mckayla Lennon Primary Care Unava ilable Valdez PHIPPS, Corinne Ghosh Attending Unavail able Brennan PHIPPS, Ty Primary Care Provider Wan NUT DEHYDRATOR OPERATOR, Mckayla Unavailable Wan NUT DEHYDRATOR OPERATOR, Mckayla Unavailable rBennan PHIPPS, Ty Primary Care Provider Allergies Allergy ClassificationReported Allergen(s)Allergy TypeDate of OnsetReaction(s) Facility (1 source)No Known Medication Allergies; Translations: [No Known Medication Allergies]Propensity to adverse reactions (disorder)[facility] Repository Medications Current Medications MedicationDrug Class(es)DatesSig (Normalized)Sig (Original)0.5 ML tirzepatide 30 MG/ML Auto-Injector [Mounjaro] (1 source)Start: 67-80-1061tqazqb 15 mg by subcutaneous injection every week Mounjaro 15 mg/0.5 mL subcutaneous solution INJECT 15MG SUBCUTANEOUSLY ONCE A WEEK Start Date: 06/11/24 Status: Orderedacetaminophen 325 mg / HYDROcodone bitartrate 5 mg oral tablet (20 sources)Opioid AgonistStart: 62-91-8173fkvzitgofwkev-hydrocodone 325 mg-5 mg oral tablet Refill(s) 0 Start Date: 02/06/22 Status: OrderedStart: 12-13-2017 End: 22-35-4766tevv 1 tablet by mouth every four hoursHydrocodone-Acetaminophen (Aurora) 5-325 mg tablet Discontinued 1 TAB PO Q4H 15 0 December 13, 2017 April 05, 2025 12:52pm Fracture of humerus painStart: 72-56-0451oqtg 1 tablet by mouth every four to six hours as needed for painHYDROcodone-acetaminophen (Aurora) 5-325 MG tablet 1 tablet 3 (three) times a day as needed for severe pain. Activetake 1 tablet by mouth twice daily as neededNorco 5-325 MG 1 tablet as needed Orally TWICE A DAY Activealbuterol 0.83 mg/ml inhalation solution (20 sources)beta2-Adrenergic AgonistStart: 77-62-5288hvan 2.5 mg by inhalation every four to six hours as neededStart: 03-79-6990zyvifwdal 0.083% Inh Tracey 3 mL Refill(s) 0 [...] oral tablet (20 sources)Tricyclic AntidepressantStart: 02-06-2022 End: 93-71-5230ftcd 1 tablet by mouth once daily at bedtimeaspirin 81 mg chewable tablet (20 sources)Platelet Aggregation Inhibitor, Nonsteroidal Anti-inflammatory Drug Start: 11-01-2023 End: 54-64-5510jots 1 tablet by mouth once dailyaspirin 81 MG chewable tablet Chew 81 mg in the morning. 0 Activebaclofen 10 mg oral tablet (20 sources)gamma-Aminobutyric Acid-ergic AgonistStart: 95-18-0222mnlw 1 tablet by mouth every eight hours as neededStart: 60-39-7363lear 1 tablet by mouth in the morning, then take 1 tablet by mouth in the evening, then take 1 tablet by mouth at bedtimebaclofen (Lioresal) 10 MG tablet Take 10 mg by mouth in the morning and 10 mg in the evening and 10mg before bedtime. 06/24/2024 Gxtfbw06 actuat budesonide 0.16 mg/actuat / formoterol fumarate [...] tablet (20 sources)Histamine-1 Receptor AntagonistStart: 11-01-2023 End: 99-70-8593mnbe 1 tablet by mouth once daily as neededtake 1 tablet by mouth in the morningcetirizine (ZyrTEC) 10 MG tablet Take 10 mg by mouth in the morning. 0 Activedapagliflozin 10 mg oral tablet (20 sources)Sodium-Glucose Cotransporter 2 InhibitorStart: 01-17-2024 End: 14-01-0445teuz 1 tablet by mouth once dailyStart: 08-14-2023 End: 45-67-6974zsep 1 tablet by mouth in the morningdapagliflozin (Farxiga) 10 MG Indications: Type 2 diabetes mellitus with unspecified complications ( CMS/HCC) Take 1 tablet (10 mg) by mouth in the morning. 90 tablet 1 08/14/2023 11/12/2023 Activediclofenac sodium 75 mg delayed release oral tablet (20 sources)Nonsteroidal Anti-inflammatory DrugStart: 37-88-4438iwdz 1 tablet by mouth twice daily0.5 ML dulaglutide 9 MG/ML Auto-Injector [Trulicity] (4 sources)GLP-1 Receptor AgonistStart: 99-26-8636Mvfpnivpv Pen 4.5 mg/0.5 mL subcutaneous solution Refills(s) [...] sources)Serotonin and Norepinephrine Reuptake InhibitorStart: 11-01-2023 End: 77-08-8394bxyl 1 capsule by mouth twice dailyStart: 07-23-2023 End: 30-93-0814ozdo 1 capsule by mouth in the morningDULoxetine (Cymbalta) [address] capsule Indications: Anxiety and depression (CMS/HCC) Take 1 capsule(60 mg) by mouth in the morning and 1 capsule (60 mg) before bedtime. Do not crush or chew.. 60 capsule 3 07/23/2023 08/22/2023 ActiveStart: 96-15-7468LHNscveqtn 30 mg Cap-EC Refills(s) 0 Start Date: 02/06/22 Status: OrderedDULoxetine 30 mg Cap-EC (2 sources)Start: 65-58-6401LKSgtqltvg 30 mg Cap-EC Refills(s) 0 Start Date: 02/06/22 Status: Orderedergocalciferol 1.25 mg oral capsule (20 sources)Provitamin D2 CompoundStart: 68-22-0426Kbuce: 01-16-2025 End: 37-13-8977qskq 1 capsule by mouth every weekergocalciferol (Vitamin D2) 1.25 MG (22123 UT) capsule Indications: Vitamin D deficiency, unspecified Take 1 capsule (1.25 mg) by mouth 1 (one) time per week 12 capsule 1 01/16/2025 04/10/2025 ActiveStart: 10-27-2024 End: 68-91-6900zgfn 1 capsule by mouth two times weeklyergocalciferol (Vitamin D2) 1.25 MG (60055 UT) capsule Indications: Vitamin D deficiency, unspecified Take 1 capsule (1.25 mg) by mouth 2 (two) times a week 24 capsule 1 10/27/2024 01/19/2025 ActiveStart: 04-06-2024 End: 10-42-7180nxtu 1 capsule by mouth every weekergocalciferol (Vitamin D2) 1.25 MG (73367 UT) capsule Indications: Vitamin D deficiency, unspecified TAKE 1 CAPSULE BY MOUTH ONE TIME PER WEEK 12 capsule 1 04/06/2024 10/27/2024 Discontinued (Reorder)fluconazole 150 mg oral tablet (20 sources)Azole AntifungalStart: 08-27-2024 End: 93-33-2612dgemiupsjhw (Diflucan) 150 MG tablet Indications: Antibiotic- induced yeast infection One time dose,repeat in 3 days . Do not take cholesterol pill while taking this medication. Once finished then resume 2 tablet 1 01/26/2025 ActiveStart: 08-17-2023 End: 04-04-3701cfehovtprcp (Diflucan) 150 MG tablet Indications: Vaginal yeast infection Take 1 tablet (150 mg) bymouth in the morning for 2 days. One time dose, may repeat in 3 days. 2 tablet 1 08/17/2023 08/19/2023 Active End: 45-77-1432drtaofurkic (Diflucan) 150 MG tablet Take 200 mg by mouth in the morning. 0 08/17/2023 Discontinued(Reorder)furosemide 20 mg oral tablet (20 sources)Loop DiureticStart: 09-22-2024 End: 98-29-8407bhfj 1 tablet by mouth once dailyStart: 04-06-2024 End: 84-96-8419xevw 1 tablet by mouth once dailyfurosemide (Lasix) 40 MG tablet Indications: Bilateral lower extremity edema Take 1 tablet (40 mg) by mouth Daily 90 tablet 1 04/06/2024 ActiveStart: 12-13-2017 End: 41-96-0832waxv 1 tablet by mouth once daily as [...] oral tablet (20 sources)Arteriolar VasodilatorStart: 09-13-2023 End: 19-79-3690rnga 1 tablet by mouth twice dailysodium hypochlorite 2.5 mg/ml topical solution (14 sources)Start: 16-91-1403LkWwry 0.25 % external solution APPLY TO GAUZE [...] with supper. 0 ActiveNovoLog (5 sources)Insulin AnalogStart: 64-69-3271FhtgWix SubCutaneous, TIDAC, Refills(s) 0 Start Date: 02/06/22 Status: OrderedNovoLOG 100 UNIT/ML as directed Injection SLIDING SCALE BEFORE EACH MEAL Active3 ml insulin glargine 100 unt/ml pen injector (20 sources)Insulin AnalogStart: 13-94-9016Uqsqa: 20-81-3645cheymqb glargine (Lantus SoloStar) 100 UNIT/ML pen Indications: Type 2 diabetes mellitus with hyperglycemia, with long-term current use of insulin (HCC) INJECT 58 UNITS SUBCUTANEOUSLY TWICE A DAY 105mL 2 02/16/2025 ActiveStart: 01-29-2025 End: 10-68-3936iubsht 58 [IU] by subcutaneous injection in the morninginsulin glargine (Lantus) 100 UNIT/ML injection Indications: Type 2 diabetes mellitus with hyperglycemia, with long-term current use of insulin (HCC) Inject 58 Units under the skin in the morning and58 Units before bedtime. 104.4 mL 1 01/29/2025 07/28/2025 ActiveStart: 69-10-5123Vlvoth SoloStar 100 UNIT/ML pen 08/26/2024 ActiveStart: 10-30-2023 End: 59-10-3161Yominb SoloStar 100 UNIT/ML pen 10/30/2023 04/14/2024 Discontinued (Therapy completed)Start: 87-53-6699Iyhzca Solostar Pen 100 units/mL subcutaneous solution Refills(s) 0 Start Date: 02/06/22 Status: Ordered Start: 12-13-2017 End: 11-10-1717fgqfka 50 [IU] by subcutaneous injection twice dailyInsulin Glargine (Lantus U-100 Insulin) 100 unit/mL Solution Discontinued 50 UNIT SUBCUT Twice daily December 13, 2017 12:00am April 05, 2025 12:53pmLantus SoloStar 100 UNIT/ML as directed Subcutaneous 58 UNITS ONCE A DAY Active3 ml insulin lispro 100 unt/ml pen injector (20 sources)Insulin AnalogStart: 10-06-2023 End: 02-59-6978WbbhOCN KWIKPEN 100 UNIT/ML injection Inject under the skin 10/06/2023 04/14/2024 Discontinued (Therapy completed)Start: 90-21-1363yfhqms 1 [IU] by subcutaneous injection before mealtimeInsulin [...] lactate 120 mg/ml topical lotion (20 sources)Start: 14-97-0771Kicxd: 92-10-2851uppuscld lactate (Lac-Hydrin) 12 % lotion 07/22/2024 ActiveStart: 41-52-7060xpzfnvbt lactate (Lac-Hydrin) 12 % lotion APPLY TO BILATERAL FEET EVERY DAY 07/22/2024 Activelisinopril 20 mg oral tablet (20 sources)Angiotensin Converting Enzyme InhibitorStart: 02-06-2022 End: 82-29-4433jnhz 1 tablet by mouth once dailymeloxicam (5 sources)Nonsteroidal Anti-inflammatory DrugStart: 58-73-5096ftaarmcqs Daily, Refills(s) 0 Start Date: 02/06/22 Status: Orderedtake 1 tablet by mouth every twenty-four hoursMeloxicam 7.5 MG 1 tablet Orally Once a day ActivemetFORMIN hydrochloride 1000 mg oral tablet (1 source)Biguanidetake 1 tablet by mouth twice daily at mealtimemetFORMIN (GLUCOPHAGE) 1000 MG tablet Take 1,000 mg by mouth 2 times daily (with meals). 0 ActiveMounjaro 10 MG/0.5ML solution pen-injector (4 sources)Start: 10-22-2023 End: 29-00-2643tarxms 10 mg by subcutaneous injection every weekMounjaro 10 MG/0.5ML solution pen-injector INJECT 10MG SUBCUTANEOUSLY ONCE A WEEK 10/22/2023 04/14/2024 Discontinued (Therapy completed)Start: 31-75-4444kkcktw 10 mg by subcutaneous injection every weekMounjaro 10 MG/0.5ML solution pen-injector INJECT 10MG SUBCUTANEOUSLY ONCE A WEEK 10/22/2023 ActiveMounjaro 15 MG/0.5ML solution auto-injector (8 sources)Start: 36-13-4450Bssbijah 15 MG/0.5ML solution auto-injector Inject 15 mg as directed every 7 (seven) days 02/18/2024 Activenaloxone hydrochloride 40 mg/ml nasal spray (20 sources)Opioid AntagonistStart: 88-15-4792Ilyhj: 77-61-6199ysozmzql (Narcan) 4 mg/0.1 mL nasal spray Administer 4 mg into affected nostril(s) if needed 07/04/2024 Zjydxj27 hr nicotine 0.875 mg/hr transdermal system (20 sources)Cholinergic Nicotinic AgonistStart: 07-14-2024 End: 49-85-6548mtjpdgqj (Nicoderm, Step 1) 21 MG/24HR patch Indications: [...] capsule (20 sources)Proton Pump InhibitorStart: 12-25-2023 End: 56-55-3376wmft 1 capsule by mouth once dailytake 1 capsule by mouth before mealtimeomeprazole (PriLOSEC) [address] capsule Take 20 mg by mouth in the morning. Take before meals. Do not crush or chew. . 0 ActiveOxygen (20 sources)oxygen (O2) gas Inhale 2 L/min continuously via nasal canula Active potassium chloride 10 meq extended release oral tablet (20 sources)Start: 11-45-2516Vkfln: 02-06-2022 End: 74-54-8803knrw 1 capsule by mouth once daily in the morningpotassium chloride ER (Micro-K) 10 MEQ ER capsule Indications: Bilateral lower extremity edema Take1 capsule (10 mEq) by mouth Daily Take 1 capsule (10 mEq) by mouth in the morning. 90 capsule 1 01/26/2025 04/26/2025 ActiveStart: 12-13-2017 End: 92-73-3233Xsjntties Chloride (Klor-Con 10) 10 mEq Tablet Extended Release Discontinued 10 MEQ PO Twice daily December 13, 2017 12:00am April 05, 2025 12:56pmtake 1 tablet by mouth every twenty-four hoursPotassium Chloride ER 10 MEQ 1 tablet with food Orally Once a day ActivepredniSONE 10 mg oral tablet (11 sources)Start: 32-80-4083vipuatAYMU (Deltasone) 10 MG tablet 4 TABS X3 DAYS, 3TABS X3 DAYS, 2 TABS X3 DAYS, 1 TAB X3 DAYS, 1/2 TAB X4 DAYS 12/05/2024 Active pregabalin 150 mg oral capsule (20 sources)Start: 67-55-4069hoqn 1 capsule by mouth once dailyStart: 08-13-2024 take 1 capsule by mouth once dailypregabalin (Lyrica) 150 MG capsule Take 150 mg by mouth Daily 08/13/2024 ActiveStart: 28-05-8233Xxpmkb Oral, Refills(s) 0 Start Date: 02/06/22 Status: OrderedStart: 12-13-2017 End: 37-44-4484reta 1 capsule by mouth in the morningpregabalin (Lyrica) 300 MG capsule Indications: Diabetic polyneuropathy associated with type 2 diabetes mellitus (HCC) Take 1 capsule (300 mg) by mouth in the morning and 1 capsule (300 mg) before bedtime. 60 capsule 5 04/14/2024 Activeroflumilast 0.5 mg oral tablet (20 sources)Phosphodiesterase 4 InhibitorStart: 01-04-2024 End: 53-64-0677zrck 1 tablet by mouth once dailysimvastatin 10 mg oral tablet (20 sources)HMG-CoA Reductase InhibitorStart: 12-19-2024 End: 81-36-9874mxjw 1 tablet by mouth once daily at bedtimeStart: 04-06-2024 End: 47-96-6118nawm 1 tablet by mouth at bedtimesimvastatin (Zocor) 10 MG tablet Indications: Hyperlipidemia, unspecified (CMS/HCC) Take 1 tablet (10 mg) by mouth at bedtime 90 tablet 1 08/27/2024 ActiveStart: 06-15-2023 End: 55-35-6989etru 1 tablet by mouth in the morningsimvastatin (Zocor) 10 MG tablet Indications: Hyperlipidemia, unspecified (CMS/HCC) Take 1 tablet (10 mg) by mouth in the morning. 90 tablet 1 06/15/2023 09/13/2023 ActiveStart: 12-13-2017 End: 87-93-2620gtag 1 tablet by mouth once daily in the eveningSimvastatin 20 mg Tablet Discontinued 20 MG PO Every evening December 13, 2017 12:00am March 1:00pmsulfamethoxazole 800 mg / trimethoprim 160 mg oral tablet (15 sources)Dihydrofolate Reductase Inhibitor Antibacterial, Sulfonamide AntimicrobialStart: 85-73-0896hmdy 1 tablet by mouth twice daily sulfamethoxazole-trimethoprim (Bactrim DS) 800-160 MG per tablet TAKE 1 TABLET BY MOUTH TWICE A DAYFOR 14 DAYS 01/14/2025 ActiveStart: 08-27-2024 End: 29-28-4712lrnvibogibjcsfpc-trimethoprim (Bactrim DS) 800-160 MG per tablet 08/27/2024 10/27/2024 Discontinued(Therapy completed)Symbicort 160/4.5 inhalation aerosol with adapter (3 sources)Start: 65-83-8580Ibxjaxdml 160/4.5 inhalation aerosol with adapter Refill(s) 0 Start Date: 02/06/22 Status: Bbbmlrn62 actuat tiotropium 0.0025 mg/actuat inhalation spray (7 sources)AnticholinergicStart: 13-71-4222Ftoeadf Respimat 60 ACT 2.5 mcg/inh inhalation aerosol Refills(s) 0 Start Date: 02/06/22 Status: Orderedtake 2 puff(s) by inhalation in the morningtiotropium (Spiriva Respimat) 2.5 MCG/ACT inhaler Inhale 2 puffs in the morning. 0 Activetake 2 puff(s) by inhalation twice daily Spiriva Respimat 2.5 MCG/ACT 2 puffs Inhalation TWICE A DAY ActiveTirzepatide (2 sources)Start: 28-08-5627Zzzndxihdah (Mounjaro) 15 MG/0.5ML solution auto-injector (20 sources)Start: 27-15-0239vsxtuc 15 mg by subcutaneous injection every week Tirzepatide (Mounjaro) 15 MG/0.5ML solution auto-injector Indications: Type 2 diabetes mellitus with other circulatory complications (HCC) Inject 15 mg under the skin 1 (one) time per week 6 mL 1 02/27/2025 ActiveStart: 21-35-1262ljvjzq 15 mg by subcutaneous injection every weekTirzepatide (Mounjaro) 15 MG/0.5ML solution auto-injector Indications: Type 2 diabetes mellitus with other circulatory complications (HCC) INJECT 15MG SUBCUTANEOUSLY ONCE A WEEK 6 mL 1 07/07/2024 ActiveStart: 71-34-9342scizro 15 mg by subcutaneous injection every weekTirzepatide (Mounjaro) 15 MG/0.5ML solution auto-injector Indications: Type 2 diabetes mellitus with other circulatory complications INJECT 15MG SUBCUTANEOUSLY ONCE A WEEK 6 mL 1 07/07/2024 ActiveStart: 53-32-9506hrsbai 15 mg by subcutaneous injection every weekTirzepatide [...] oral tablet (20 sources)Partial Cholinergic Nicotinic AgonistStart: 19-50-7988pgsk 1 tablet by mouth twice dailyStart: 12-19-2024 End: 69-58-5051lwev 1 tablet by mouth in the morningvarenicline (Chantix) 1 MG tablet Indications: Tobacco user , Encounter for smoking cessation counseling TAKE 1 TABLET BY MOUTH IN THE MORNING AND 1 TABLET BEFORE BEDTIME. TAKE WITH FULL GLASS OF WATER. 60 tablet 1 03/09/2025 ActiveStart: 08-27-2024 End: 56-26-1712ewfh 1 tablet by mouth in the morningvarenicline (Chantix) 1 MG tablet Indications: Tobacco user , Encounter for smoking cessation counseling Take 1 tablet (1 mg) by mouth in the morning and 1 tablet (1 mg) before bedtime. Take with full glass of water.. 60 tablet 1 08/27/2024 ActiveStart: 12-05-2023 End: 32-69-7015Boqbouwbhpj Tartrate, Starter, 0.5 MG X 11 & 1 MG X 42 tablet therapy [facility]/05/2023 07/14/2024 Discontinued (Therapy completed)Start: 48-77-2101Mrlvvortavh Tartrate, Starter, 0.5 MG X 11 & 1 MG X 42 tablet therapy pack [facility] 12/05/2023 Active Completed/Discontinued Medications MedicationDrug Class(es)DatesSig (Normalized)Sig (Original)amoxicillin 875 mg / clavulanate 125 mg oral tablet (6 sources)Penicillin-class AntibacterialStart: 12-05-2024 End: 08-36-4560qria 1 tablet by mouth every twelve hoursamoxicillin-clavulanate (Augmentin) 875-125 MG tablet Take 1 tablet by mouth every 12 (twelve) hours 12/05/2024 01/26/2025 Discontinued (Therapy completed)cephalexin 500 mg oral capsule (9 sources)Cephalosporin AntibacterialStart: 2024 End: 27-48-2492xcjhvqqmbt (Keflex) 500 MG capsule 2024 10/27/2024 Discontinued (Therapy completed)Glucose Blood (ACCU-CHEK JAQUI PLUS ) (14 sources) End: 05-35-2045Uqeijdq Blood (ACCU-CHEK JAQUI PLUS ) 4 (four) times a day. 07/14/2024 Discontinued (Therapy completed)Glucose Blood (ACCU-CHEK JAQUI PLUS ) 4 (four) times a day. ActiveGlucose Blood (ACCU-CHEK JAQUI PLUS ) 4 (four) times a day. 0 Active3 ml liraglutide 6 mg/ml pen injector (6 sources)GLP-1 Receptor Agonist End: 55-19-4412mlzpcvnjuxz (Victoza) 18 MG/3ML injection Inject under the skin Daily 07/14/2024 Discontinued (Therapy completed)naproxen 500 mg oral tablet (2 sources)Nonsteroidal Anti-inflammatory DrugStart: 12-13-2017 End: 01-86-3310znji 1 tablet by mouth twice daily at mealtimeNaproxen 500 mg tablet Discontinued 500 MG PO Twice daily 20 0 December 13, 2017 12:00am April 05, 2025 12:53pm administer with food or milknortriptyline 50 mg oral capsule (18 sources)Tricyclic AntidepressantStart: 12-13-2017 End: 59-29-3659amkv 1 capsule by mouth once daily at bedtimeNortriptyline 50 mg Capsule Discontinued 50 MG PO Daily at bedtime December 13, 2017 12:00am April 05, 2025 12:53pmubrogepant 100 mg oral tablet (12 sources) End: 30-03-3467sbsm 1 tablet by mouth every twenty-four hours as needed Ubrogepant (Ubrelvy) 100 MG tablet Take 100 mg by mouth Daily as needed 07/14/2024 Discontinued (Therapy completed) Problems Active Problems Problem ClassificationProblemDateDocumented DateEpisodic/ChronicAbdominal pain (6 sources)Left flank pain; Translations: [Lower abdominal pain, unspecified] Onset: 444440-44-1814PzfiuwawFpdczzks foot deformities (1 source)Other hammer toe(s) (acquired), right foot; Translations: [OTHER HAMMER TOES ACQUIRED RT FOOT]Onset: 85-01-2618OimdkrqJkgddupu foot deformities (1 source)Other hammer toe(s) (acquired), left foot; Translations: [OTHER HAMMER TOES ACQUIRED LT FOOT]Onset: 95-35-6979ZrdboyzCeghmiw disorders (20 sources)Mixed anxiety and depressive disorder; Translations: [Anxiety disorder, unspecified]Onset: 191855-42-0727FdozfoxCmnlej (20 sources)Asthma; Translations: [Unspecified asthma, uncomplicated]Onset: 950645-49-8940GgctdsdLnwwiv of cervix (20 sources)Malignant tumor of cervix; Translations: [Malignant neoplasm of cervix uteri, unspecified]Onset: 471505-29-4555BwnzbthVmfbjb of cervix (2 sources)History of malignant neoplasm of cervix; Translations: [Personal history of malignant neoplasm of cervix uteri]24-30-4987ZurgnsniNtojivn kidney disease (5 sources)Chronic kidney disease; Translations: [Chronic kidney disease, unspecified]Onset: 02-20-2022 Resolved: 63-11-8791KvbihwiOgrpbdt obstructive pulmonary disease and bronchiectasis (20 sources)Pulmonary emphysema; Translations: [Chronic obstructive pulmonary disease with (acute) exacerbation]Onset: 015942-51-0611EkujejhSozlheu ulcer of skin (20 sources)Non-pressure chronic ulcer of other part of right lower leg limited to breakdown of skin; Translations: [Non-pressure chronic ulcer of other part of left lower leg limited to breakdown of skin]Onset: 473804-19-5916Cekkpqq Congestive heart failure; nonhypertensive (20 sources)Chronic diastolic heart failure; Translations: [Chronic diastolic (congestive) heart failure]Onset: 194010-76-4182ExbqjkfLywfjlqk mellitus with complications (20 sources)Disorder of kidney due to diabetes mellitus; Translations: [Type 2 diabetes mellitus with diabetic chronic kidney disease]Onset: 02-20-2022 Resolved: 72-10-0418OrhiagvEkifcopl mellitus without complication (13 sources)Type 2 diabetes mellitus; Translations: [Type 2 diabetes mellitus without complications]Onset: 689839-30-3931NkbkykfDjofoyzae of lipid metabolism (20 sources)Pure hypercholesterolemia, unspecified; Translations: [Hyperlipidemia, unspecified]Onset: 104990-24-1515AcksjyyDfywzgbjhl disorders (20 sources)Gastro-esophageal reflux disease without esophagitis; Translations: [Gastroesophageal reflux disease]Onset: 12-05-2022 Resolved: 677006-80-6107HewjqfdCnwbpubqs hypertension (20 sources)Hypertensive disorder; Translations: [Essential (primary) hypertension]Onset: 616101-04-4549SlxudinTilktvxgefosu symptoms and ill- defined conditions (20 sources)Mixed incontinence; Translations: [Incontinence]Onset: 02-06-2022 ChronicGout and other crystal arthropathies (20 sources)Gout; Translations: [Gout, unspecified]Onset: ChronicHypertension with complications and secondary hypertension (5 sources)Chronic kidney disease due to hypertension; Translations: [Hypertensive chronic kidney disease withstage 1 through stage 4 chronic kidney disease, or unspecified chronic kidney disease]Onset: 02-20-2022 Resolved: 61-57-2947UfupqvhYqlk disorders (1 source)Major depressive disorder, single episode, unspecified; Translations: [ANASTACIO DEPRESS D/O SINGLE EPIS UNS]Onset: 84-48-4348QacympvVcspimzghcuwa gastroenteritis (1 source)Noninfective gastroenteritis and colitis, unspecified; Translations: [NONINFECTIVE GE AND COLITIS UNS]Onset: 82-79-3916ZfrkmuclQqcuinwatkp deficiencies (20 sources)Vitamin D deficiency; Translations: [Vitamin D deficiency, unspecified]Onset: 662055-45-2803HmjxtfrMbftqfssikyxev (20 sources)Arthritis; Translations: [Unspecified osteoarthritis, unspecified site]Onset: 612263-60-0897MozchvyEnhtw aftercare (1 source)Other terminal system operator (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 therapy; Translations: [OTH ASSISTED CURRENT DRUG THERAPY]Onset: 13-77-6026WdahpbalDllcr aftercare (1 source)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 (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; Translations: [SECURITY RISK ANALYST CURRENT USE OF ASPIRIN]Onset: 68-15-5892MbszfjohDmnqn aftercare (6 sources)Long-term current use of insulin; Translations: [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]54-18-5840KzgnywsvNwkym and ill-defined heart disease (20 sources)Cardiomegaly; Translations: [Cardiomegaly]Onset: 10-25-2017 57-14-7085TkxqxumWylnk and ill-defined heart disease (1 source)Cardiomegaly; Translations: [Cardiomegaly]Onset: 60-82-6585Fekudmw Other and unspecified benign neoplasm (1 source)Benign lipomatous tumor; Translations: [Benign lipomatous neoplasm of other sites]Onset: 97-67-4616LuzxixpsGwsse bone disease and musculoskeletal deformities (1 source)Acquired absence of other left toe(s); Translations: [ACQUIRED ABSENCE OF OTHER LEFT TOES]Onset: 92-38-4200OyxovmqaRiroh diseases of kidney and ureters (1 source)Urinary tract obstruction; Translations: [Other obstructive and reflux uropathy]Onset: 28-60-0426XtdpzlykWpvqd diseases of veins and lymphatics (1 source)Chronic venous hypertension (idiopathic) with ulcer and inflammation of bilateral lower extremity; Translations: [CHRN KEO HTN ULCR INFLAM ALEX LW EXT]Onset: 51-35-9558RpoxgztMkdyq diseases of veins and lymphatics (1 source)Chronic venous hypertension (idiopathic) with ulcer of left lower extremity; Translations: [CHRON VENOUS HTN W/ULCER LT LW EXT]Onset: 09-01-2022 ChronicOther diseases of veins and lymphatics (1 source)Lymphedema, not elsewhere classified; Translations: [LYMPHEDEMA NOT ELSEWHERE CLASSIFIED]Onset: 42-25-2890GyvervqSvaan diseases of veins and lymphatics (5 sources)Chronic peripheral venous hypertension with lower extremity complication; Translations: [Chronic venous hypertension (idiopathic) with ulcer of bilateral lower extremity]Onset: 160491-97-8524MtvjwxzMhhyi diseases of veins and lymphatics (20 sources)Chronic peripheral venous hypertension; Translations: [Chronic venous hypertension (idiopathic) with ulcer of bilateral lower extremity]Onset: 537458-46-8613HpbfhcpPrlbs diseases of veins and lymphatics (18 sources)Stasis dermatitis and venous ulcer of right lower extremity due to chronic peripheral venous hypertension; Translations: [Chronic venous hypertension (idiopathic) with ulcer and inflammation of rightlower extremity] Onset: 073547-15-2040SzzfvbpTykfq endocrine disorders (2 sources)Disorder of adrenal gland; Translations: [Other specified disorders of adrenal gland]Onset: 59-56-4997QwqodenKbfcy endocrine disorders (20 sources)Adrenal mass; Translations: [Disorder of adrenal gland, unspecified] Onset: 654835-66-2868DhrctiuLqvnq endocrine disorders (2 sources)Disorder of adrenal gland, unspecifiedOnset: 02-20-2022 Resolved: 15-32-2395OvaymvoObsqp endocrine disorders (5 sources)Other specified disorders of adrenal gland; Translations: [OTHER SPEC DISORDERS ADRENAL GLAND]Onset: 79-71-0492HffnmezMqkfn gastrointestinal disorders (3 sources)Adrenal ilkn57-11-7754WcqompdcKpkhp lower respiratory disease (1 source)Hypoxemia; Translations: [HYPOXEMIA]Onset: 75-41-1094ZumhaccjZdtvq nervous system disorders (5 sources)Chronic pain syndrome; Translations: [CHRONIC PAIN SYNDROME]Onset: 95-80-0279WtroinpQqaww nervous system disorders (1 source)Other chronic pain; Translations: [OTHER CHRONIC PAIN]Onset: 10-68-4425RqcddewNuwdi non-traumatic joint disorders (4 sources)Pain in right hip; Translations: [PAIN IN RIGHT HIP]Onset: 04-27-2022 EpisodicOther nutritional; endocrine; and metabolic disorders (2 sources)Localized adiposity; Translations: [Localized adiposity]ChronicOther nutritional; endocrine; and metabolic disorders (20 sources)Body mass index 40+ - severely obese; Translations: [Body mass index (BMI) 50.0-59.9, adult]Onset: 842799-61-0087XsjzlehFvkqf nutritional; endocrine; and metabolic disorders (3 sources)Body mass index (BMI) 50.0-59.9, adult; Translations: [BODY MASS INDEX BMI 50.0-59.9 ADULT]Onset: 00-68-5901GfrgewfPsnil nutritional; endocrine; and metabolic disorders (3 sources)Morbid (severe) obesity due to excess calories; Translations: [MORBID SEVERE OBES D/T EXCESS NHI]Onset: 91-04-3255OwitfeaPmfui nutritional; endocrine; and metabolic disorders (1 source)Obesity, unspecified; Translations: [OBESITY UNSPECIFIED]Onset: 52-22-4130SjvxbmbIcrpj nutritional; endocrine; and metabolic disorders (20 sources)Obesity caused by energy imbalance; Translations: [Morbid (severe) obesity due to excess calories]Onset: 475570-05-1993UzwmhfeAzupj screening for suspected conditions (not mental disorders or infectious disease) (1 source)Encounter for screening mammogram for malignant neoplasm of breast; Translations: [ENC SCR MAMMO MALIG NEOPLASM BREAST]Onset: 87-94-4473Iocaxenh Other skin disorders (2 sources)Bilateral localized swelling of lower legs; Translations: [Localized swelling, mass and lump, lowerlimb, bilateral]67-48-3425YnuiwtzfUwdaf upper respiratory disease (20 sources)Allergic rhinitis; Translations: [Other allergic rhinitis]Onset: 195224-04-1271JwlowmqOeluaskily and visceral atherosclerosis (20 sources)Peripheral vascular disease, unspecified; Translations: [Peripheral vascular disease, unspecified]Onset: 416350-10-4317TmzfkrhAgrhtbncs heart disease (20 sources)Pulmonary hypertension; Translations: [Pulmonary hypertension, unspecified]Onset: 970626-47-2383BcaafjtNinfvuxs codes; unclassified (3 sources)Obstructive sleep apnea (adult) (pediatric); Translations: [OBSTRUCTIVE SLEEP APNEA]Onset: 37-19-9637KndxmpaNiktvkqg codes; unclassified (20 sources)Obstructive sleep apnea syndrome; Translations: [Obstructive sleep apnea (adult) (pediatric)]Onset: 804554-44-6150MiospyaWskgnmrn codes; unclassified (1 source)Acquired absence of other specified parts of digestive tract; Translations: [ACQ ABSENCE OTH PART DIGESTV TRACT]Onset: 99-16-6504Fagboizp Residual codes; unclassified (1 source)Acquired absence of both cervix and uterus; Translations: [ACQUIRED ABSENCE BOTH CERVIX AND UTERUS]Onset: 33-65-3118GubtyhteIikffycy codes; unclassified (1 source)Family history of malignant neoplasm of ovary; Translations: [FAM HX MALIGNANT NEOPLASM OVARY]Onset: 25-26-4909NvzcwsekWnghjkvp codes; unclassified (1 source)Family history of malignant neoplasm, unspecified; Translations: [FAM HX MALIGNANT NEOPLASM UNS]Onset: 40-51-9831UgkkvemfHxatcqqhn-related disorders (20 sources)Nicotine dependence; Translations: [Nicotine dependence, unspecified, uncomplicated]Onset: 12-55-1581FvhbaklQxkwdsj on above:Added secondary to documentation in Social History.Unclassified (1 source)SECURITY RISK ANALYST INJECT NONINSULN ANTIDIAB; Translations: [SECURITY RISK ANALYST INJECT NONINSULN ANTIDIAB]Onset: 62-81-7004Qbhnjmhvqgbv (3 sources)CONTACT W/AND (SUSP) EXPOS COVID-19; Translations: [CONTACT W/AND (SUSP) EXPOS COVID-19]Onset: 62-86-4811Ceqamyyigmuu (3 sources)LOW BACK PAIN, UNSPECIFIED; Translations: [LOW BACK PAIN, UNSPECIFIED]Onset: 83-30-0394Gplamxrpysgz (1 source)Obesity, class 3; Translations: [Obesity, class 3]Onset: 11-14-2023 Viral infection (1 source)COVID-19; Translations: [COVID-19]Onset: 09-29-2022 Past or Other Problems Problem ClassificationProblemDateDocumented DateEpisodic/ChronicAcquired foot deformities (1 source)Other deformities of toe(s) (acquired), left foot; Translations: [OTHER DEFORMITIES TOES ACQ LT FOOT]Onset: 54-81-4455Fgfytdmc Administrative/social admission (20 sources)Patient encounter status; Translations: [Dietary counseling and surveillance]Onset: 498057-55-0978DvrptbxlFtidhzcg of urinary tract (20 sources)Kidney stone; Translations: [Calculus of kidney]Onset: 02-06-2022 EpisodicE Codes: Natural/environment (1 source)Other and unspecified overexertion or strenuous movements or postures, initial encounter; Translations: [OTH AND UNS OVREXRT/STRN MVMT/POS INT]Onset: 76-69-5735JotgceahVksmp of unknown origin (18 sources)Fever; Translations: [Fever, unspecified]Onset: 472340-71-7959 EpisodicGenitourinary symptoms and ill-defined conditions (20 sources)Proteinuria; Translations: [Proteinuria, unspecified]Onset: 02-06-2022 Resolved: 25-81-5781YgyumdnzRdammmnj; including migraine (20 sources)Headache; Translations: [Headache disorder]Onset: 01-17-2024 23-76-6914GugoetsqGufmzdohrilgi and screening for infectious disease (20 sources)Encounter for screening for other infectious and parasitic diseases; Translations: [Anti-nuclear factor positive]Onset: 635860-93-7298Dgmijvhv Mood disorders (20 sources)Mood disorders; Translations: [DEPRESSION UNSPECIFIED]Onset: 313833-23-3016Iecvczj (20 sources)Tinea unguium; Translations: [Candidiasis of vagina]Onset: 32-41-8112UntbexnlJrrejbjnifs deficiencies (20 sources)Vitamin deficiency; Translations: [Vitamin deficiency, unspecified] Onset: 427111-01-7388AjmbkorvUourp aftercare (3 sources)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; Translations: [ASSISTED CURRENT USE OF INSULIN]Onset: 88-77-7852JbltmlkeXykec aftercare (20 sources)Long-term current use of inhaled steroid; Translations: [long-term (current) use of inhaled steroids]Onset: 507897-65-1343RimonaimAvzdp and unspecified benign neoplasm (20 sources)Myelolipoma of adrenal gland; Translations: [Benign lipomatous neoplasm of other sites]Onset: 084662-79-5638BpoadlueJvxrj connective tissue disease (4 sources)Other muscle spasm; Translations: [OTHER MUSCLE SPASM]Onset: 43-23-5505RcadeyclQssoj diseases of veins and lymphatics (20 sources)Vascular insufficiency; Translations: [Venous insufficiency (chronic) (peripheral)]Onset: 523652-27-8644FgfqcntfObufc diseases of veins and lymphatics (2 sources)Venous insufficiency (chronic) (peripheral); Translations: [Venous insufficiency (chronic) (peripheral)]Onset: 36-85-9304FthnuuvzKqpfy hematologic conditions (1 source)Secondary polycythemiaOnset: 03-08-2022 Resolved: 26-56-1427PlqkmsvlSwtsj nervous system disorders (20 sources)Reduced mobility; Translations: [Other abnormalities of gait and mobility]Onset: 064073-75-6668EmnfqufrSynoe non-traumatic joint disorders (1 source)Effusion, left knee; Translations: [EFFUSION LEFT KNEE]Onset: 19-96-3328WlzkmekeQvpkg non-traumatic joint disorders (1 source)Pain in left knee; Translations: [PAIN IN LEFT KNEE]Onset: 07-26-2022 EpisodicOther non-traumatic joint disorders (20 sources)Pain in right knee; Translations: [Pain in joint, lower leg]Onset: 778902-37-2243HdolinpeDqfte nutritional; endocrine; and metabolic disorders (20 sources)Severe obesity; Translations: [Morbid (severe) obesity due to excess calories]Onset: 07-10-2023 Resolved: 718381-17-1446IypuqfmKnsrh nutritional; endocrine; and metabolic disorders (20 sources)Excess panniculus of abdomen; Translations: [Localized adiposity] Onset: 10-25-2017 Resolved: 073198-72-0588YjryewvNgzjo skin disorders (1 source)Nail dystrophy; Translations: [NAIL DYSTROPHY]Onset: 09-01-2022 EpisodicOther skin disorders (1 source)Corns and callosities; Translations: [CORNS AND CALLOSITIES]Onset: 03-21-1799AtayiagvHnzkq skin disorders (1 source)Xerosis cutis; Translations: [XEROSIS CUTIS]Onset: 38-38-9758Alfewohz Other skin disorders (20 sources)Hyperpigmentation of skin; Translations: [Disorder of pigmentation, unspecified]Onset: 295882-28-2718AhwjjpbqPnlecb media and related conditions (20 sources)Acute suppurative otitis media without spontaneous rupture of ear drum; Translations: [Acute suppurative otitis media without spontaneous rupture of ear drum, left ear]Onset: 01-17-2024 Resolved: 341589-66-8102LqcjfzofJfhvsxxpqi disorders (not diabetes) (20 sources)Acute pancreatitis without necrosis or infection, unspecified; Translations: [Pancreatitis]Onset: 328872-37-2751LoakxlpnOayrqlawe (except that caused by tuberculosis or sexually transmitted disease) (20 sources)Pneumonia; Translations: [Pneumonia, unspecified organism]Onset: 09-17-2023 Resolved: 311350-45-2263ExndzbsvGbqqnavy codes; unclassified (3 sources)Localized edema; Translations: [LOCALIZED EDEMA]Onset: 09-01-2022 EpisodicResidual codes; unclassified (20 sources)Edema; Translations: [Edema, unspecified]Onset: 07-10-2023 Resolved: 837071-13-2549XvyddzqmEichwxbw codes; unclassified (20 sources)Bilateral lower limb edema; Translations: [Localized edema]Onset: 941302-93-5021AqmkfdufDrewjvfw codes; unclassified (20 sources)Insomnia; Translations: [Insomnia, unspecified]Onset: 09-17-2023 57-58-4673FizgenewAwyxfuhd codes; unclassified (20 sources)Tobacco user; Translations: [Tobacco use]Onset: 09-17-2023 Resolved: 998052-14-2874JtmsrfaaUoamohih codes; unclassified (20 sources)Edema of lower extremity; Translations: [Localized edema]Onset: 09-17-2023 Resolved: 944294-09-7313RbacshxlHycb and subcutaneous tissue infections (20 sources)Cellulitis of right lower limb; Translations: [Cutaneous abscess of left axilla]Onset: 23-00-9891QojattfcBfibyvstixl; intervertebral disc disorders; other back problems (20 sources)Lumbar radiculopathy; Translations: [Radiculopathy, lumbar region] Onset: 743571-68-3801QvhpjxtnMszzgom and strains (1 source)Strain of muscle, fascia and tendon of lower back, initial encounter; Translations: [STRAIN MUSC FASC TENDON LW BACK INT]Onset: 09-06-3898Idqylhst Unclassified (1 source)CONTACT W/AND (SUSP) EXPOS COVID-19; Translations: [CONTACT W/AND (SUSP) EXPOS COVID-19]Onset: 94-20-7330Ynnurwhguvkd (1 source)LOW BACK PAIN, UNSPECIFIED; Translations: [LOW BACK PAIN, UNSPECIFIED] Onset: 68-01-9196Vgqsrpokoyox (4 sources)Patient encounter -09-0026Gjgusalogfhs (1 source)Obesity, class 3; Translations: [Obesity, class 3]Onset: 08-08-2024 Varicose veins of lower extremity (20 sources)Varicose veins of right lower extremity with ulcer of unspecified site; Translations: [Varicose veins of lower extremities with ulcer]Onset: 06-19-2024 Resolved: 404119-77-7724Tqtusnew Results Test NameValueInterpretationReference RangeFacilityReminderson 04-28-2025 RemindersReminders From: [...] ) Other: PROVIDER RELATED REMINDER:_ ( ) Labeling Strategist ( ) Call Pharmacy ( ) Call [...] unable to leave a message at this time.[facility] Office/Cl[facility] Noteon 85-78-3080Oetbbkyw Office/Clinic NoteChief Complaint Leg ulcer History of Present Illness 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 She has had ulcers in the bilateral lower extremities above the ankle for about a year. She has been seen by wound care in [facility]. They are applying compression with [...] signed by Corinne Kellogg MD 04/23/25 11:56 [facility] Ankle Brachial Indiceson [id number] Ankle Brachial IndicesPreliminary Technologist Report Ankle/brachial index study was performed. Please see below for information. Phlebotomy Director: Zayra Ag, RVS Radiologist Report BILATERAL [...] please contact our Vascular Rehabilitation Department at [phone]. Final Signed by: Jose F Casanova MD Signed (Electronic Signature): 04.17.2025 3:28 pm Transcribed by: Jose F Casanova MD Transcribed DT/TM: 04.17.2025 3:12 (If Report is Signed, Electronically Signed in Other Vendor System)[facility] CampusBasophils Auto (Bld) [#/Vol]Ordered By: Flynn Urias on 87-04-2306Exfbvurzq (Bld) [#/Vol]0.1 10 3/uL0.0-0.1FSouthern Ohio Medical CenterBasophils/100 WBC Auto (Bld)Ordered By: Flynn Urias on 25-75-3374Uewmclusm/100 WBC (Bld)0.6 %0.2-2.0[facility] Eosinophils/100 WBC Auto (Bld)Ordered By: Flynn Urias on 03-26-2025 Eosinophils/100 WBC (Bld)2.7 %0.9-7.0[facility] Erythrocyte distribution width Auto (RBC) [Ratio]Ordered By: Flynn Urias on 75-54-9385Hqdnyoqrxgm distribution width (RBC) [Ratio]16.4 %High11.0-15.0 [facility] AndersonGlomerular filtration rate (GFR) estimation in non- AmericanOrdered By: Flynn Urias on 43-40-7863WEE/1.73 sq M.predicted among non-blacks MDRD (S/P/Bld) [Vol rate/Area]mL/min/{1.73_m2}>=60 mL/min/1.73m 2FSouthern Ohio Medical CenterHematocrit Auto (Bld) [Volume fraction]Ordered By: Flynn Urias on 86-56-6262Pfpbjwkzsd (Bld) [Volume fraction]52.5 %High36.0-48.0[facility] AndersonHemoglobin [Mass/volume] in BloodOrdered By: Flynn Urias on 13-85-5439Epfjjioewj (Bld) [Mass/Vol]16.1 g/xANfue68.0-16.0[facility] AndersonLaboratory - Chemistry and Chemistry - challengeOrdered By: Flynn Urias on 03-26-2025 Albumin [Mass/Vol]2.8 g/dLLow3.4-5.0[facility] AndersonCalcium [Mass/Vol]8.6 mg/dL8.5-10.1FSouthern Ohio Medical CenterChloride [Moles/Vol] 105 mmol/N86-863ZeiazxbrpOur Lady Of Mercy Hospital - AndersonCO2 [Moles/Vol]31.5 mmol/L 21.0-32.0[facility] AndersonCreatinine [Mass/Vol]0.69 mg/dL 0.55-1.02[facility] AndersonGFR/1.73 sq M.predicted MDRD (S/P/Bld) [Vol rate/Area]mL/min/{1.73_m2}>=60 mL/min/1.73m 2FSouthern Ohio Medical CenterGlucose [Mass/Vol]147 mg/iKQhug92-072LhywrocgrOur [facility] Potassium [Moles/Vol]4.2 mmol/L3.5-5.1FFirelands Regional Medical Centerodium [Moles/Vol]141 mmol/K300-144BnykeacfuOur Lady Of Mercy Hospital - AndersonUrea nitrogen [Mass/Vol]15.0 mg/dL7.0-18.0[facility] AndersonUrea nitrogen/Creatinine [Mass ratio]21.7 mg/mgOur Lady Of Mercy [facility] Laboratory - Hematology and Cell countsOrdered By: Flynn Urias on 03-26-2025 ESR (Bld) [Velocity]48 mm/hHigh<=30[facility] AndersonImmature granulocytes/100 WBC (Bld)0.3 %0.0-0.5FSouthern [facility] Medical Center Leukocytes [#/volume] corrected for nucleated erythrocytes in Blood by Automated counOrdered By: Flynn Urias on 60-47-9286LSA corrected for nucl RBC Auto (Bld) [#/Vol]10.0 10 3/uL4.0-11.0[facility] AndersonLymphocytes Auto (Bld) [#/Vol]Ordered By: Flynn Urias on 08-79-6059Vicmxwlkpns (Bld) [#/Vol]2.7 10 3/uL1.2-3.8[facility] AndersonLymphocytes/100 WBC Auto (Bld)Ordered By: Flynn Urias on 53-46-0538Okebszihnby/100 WBC (Bld)27.2 % 20.5-60.0[facility] AndersonMCH Auto (RBC) [Entitic mass]Ordered By: Flynn Urias on 01-98-3255KLW (RBC) [Entitic mass]27.2 pg26.7-34.0[facility] AndersonMCHC Auto (RBC) [Mass/Vol]Ordered By: Flynn Urias on 61-83-2246YKIM (RBC) [Mass/Vol]30.7 g/dL29.9-35.2FSouthern Ohio Medical CenterMCV Auto (RBC) [Entitic vol]Ordered By: Flynn Urias on 36-08-9865EZO (RBC) [Entitic vol]88.7 fL81.0-99.0[facility] AndersonMonocytes Auto (Bld) [#/Vol]Ordered By: Flynn Urias on 73-11-1362Vbmoyqfrz (Bld) [#/Vol] 0.5 10 3/uL0.3-0.8[facility] AndersonMonocytes/100 WBC Auto (Bld) Ordered By: Flynn Urias on 35-27-3560Abmumjslk/100 WBC (Bld)5.2 %1.7-12.0 [facility] AndersonNeutrophils Auto (Bld) [#/Vol]Ordered By: Flynn Urias on 44-51-0347Ravrwheejfn (Bld) [#/Vol]6.4 10 3/uL1.4-6.5FSouthern Ohio Medical CenterNeutrophils/100 WBC Auto (Bld)Ordered By: Flynn Urias on 57-53-4130Huredyawwap/100 WBC (Bld)64.0 %43.0-75.0[facility] AndersonNo Panel InformationOrdered By: Flynn Urias on 93-68-5948S-Reactive Protein, Quantitative3.94 mg/dLHigh<=0.50[facility] Eosinophils # (Auto)0.3 10 3/uL0.0-0.7FSouthern Ohio Medical CenterImmature Granulocyte # (Auto)0.03 10 3/uL0.00-0.03[facility] Phosphorus Level3.5 mg/dL2.6-4.7FSouthern Ohio Medical CenterPlatelet mean volume Auto (Bld) [Entitic vol]Ordered By: Flynn Urias on 10-19-1773Azdeltdt mean volume (Bld) [Entitic vol]12.8 fL9.5-13.5FSouthern Ohio Medical Center Platelets Auto (Bld) [#/Vol]Ordered By: Flynn Urias on 45-40-7605Xzrnrahvf (Bld) [#/Vol]146 10 3/wJEmz740-391PvmtrvotbOur Lady Of Mercy Hospital - AndersonRBC Auto (Bld) [#/Vol]Ordered By: Flynn Urias on 58-40-4055YWG (Bld) [#/Vol]5.92 10 6/uLHigh4.20-5.40[facility] West Hospitalerum or plasma anion gap determinationOrdered By: Fylnn Urias on 19-25-1150Ipihp gap [Moles/Vol]8.7 mmol/LFSouthern Ohio Medical CenterBasophils Auto (Bld) [#/Vol]Ordered By: Price Arora on 88-27-8107Tdpbzqkpg (Bld) [#/Vol]0.1 10 3/uL0.0-0.1FSouthern Ohio Medical CenterBasophils/100 WBC Auto (Bld)Ordered By: Price Arora on 94-29-8081Dlyabgewb/100 WBC (Bld)0.4 %0.2-2.0[facility] Eosinophils/100 WBC Auto (Bld)Ordered By: Price Arora on 03-25-2025 Eosinophils/100 WBC (Bld)2.4 %0.9-7.0[facility] Erythrocyte distribution width Auto (RBC) [Ratio]Ordered By: Price Arora on 68-54-6748Rteuxcooohe distribution width (RBC) [Ratio]16.4 %High11.0-15.0 [facility] - AndersonGlomerular filtration rate (GFR) estimation in non- AmericanOrdered By: Price Arora on 94-56-2648PVI/1.73 sq M.predicted among non-blacks MDRD (S/P/Bld) [Vol rate/Area]mL/min/{1.73_m2}>=60 mL/min/1.73m 2FSouthern Ohio Medical CenterHematocrit Auto (Bld) [Volume fraction]Ordered By: Price Arora on 24-10-0738Btgpzjuahm (Bld) [Volume fraction]56.6 %High36.0-48.0[facility] AndersonHemoglobin [Mass/volume] in BloodOrdered By: Price Arora on 03-54-4949Vgwknytlkj (Bld) [Mass/Vol]17.4 g/eWFtdh19.0-16.0[facility] AndersonLaboratory - Chemistry and Chemistry - challengeOrdered By: Price Arora on 03-25-2025 Bilirubin Ql (U)NegativeNEGATIVEOur Lady Of Mercy Hospital - AndersonGlucose (U) [Mass/Vol]NegativeNEGATIVEOur Lady Of Mercy Hospital - AndersonKetones Ql (U) NegativeNEGATIVEOur Lady Of Mercy Hospital - AndersonpH (U)8.0 [pH]5.0-9.0[facility] West Hospitalpecific gravity (U) [Rel density]1.0201.005-1.025 [facility] AndersonUrobilinogen Qn (U)1.0 {Little'U}/dL0.2-1.0 [facility] AndersonCalcium [Mass/Vol]9.2 mg/dL8.5-10.1FSouthern Ohio Medical CenterChloride [Moles/Vol]106 mmol/A92-613TiasdtetlOur Lady Of Mercy Hospital - AndersonCO2 [Moles/Vol]36.9 mmol/LHigh21.0-32.0[facility] AndersonCreatinine [Mass/Vol]0.86 mg/dL0.55-1.02[facility] GFR/1.73 sq M.predicted MDRD (S/P/Bld) [Vol rate/Area]mL/min/{1.73_m2}>=60 mL/min/1.73m 2FSouthern Ohio Medical CenterGlucose [Mass/Vol]164 mg/dLHigh 74-106[facility] AndersonPotassium [Moles/Vol]4.0 mmol/L3.5-5.1 [facility] Hospitalodium [Moles/Vol]144 mmol/J651-663UfqdiykgaOur Lady Of Mercy Hospital - AndersonUrea nitrogen [Mass/Vol]14.0 mg/dL7.0-18.0[facility] AndersonUrea nitrogen/Creatinine [Mass ratio]16.3 mg/mgOur Lady Of Mercy Hospital - AndersonLaboratory - Hematology and Cell countsOrdered By: Price Arora on 20-30-1632Ztytvoyl granulocytes/100 WBC (Bld)0.3 %0.0-0.5 [facility] AndersonLaboratory - Specimen informationOrdered By: Price Arora on 40-40-9621Rrgpxybitd (U)CLEARCLEARFSouthern Ohio Medical CenterColor (U)LT. YELLOWYELLOWOur Lady Of Mercy Hospital - AndersonLaboratory - UrinalysisOrdered By: Price Arora on 83-84-5033Aiefsja casts LM Ql (Urine sed) RAREOur Lady Of Mercy Hospital - AndersonLeukocyte esterase Test strip Ql (U) NegativeNEGATIVEOur Lady Of Mercy Hospital - AndersonMucus Ql (Urine sed)TRACE AbnormalNONE SEENOur Lady Of Mercy Hospital - AndersonNitrite Ql (U)NegativeNEGATIVE [facility] AndersonProtein Ql (U)100 mg/dLAbnormalNEG/TRACE [facility] AndersonLeukocytes [#/volume] corrected for nucleated erythrocytes in Blood by Automated counOrdered By: Price Arora on 03-25-2025 WBC corrected for nucl RBC Auto (Bld) [#/Vol]11.8 10 3/uLHigh4.0-11.0[facility] AndersonLymphocytes Auto (Bld) [#/Vol]Ordered By: Price Arora on 69-68-1673Ktlbnatdhwb (Bld) [#/Vol]3.1 10 3/uL1.2-3.8[facility] AndersonLymphocytes/100 WBC Auto (Bld)Ordered By: Price Arora on 56-62-8569Mcompwuocay/100 WBC (Bld)26.4 %20.5-60.0[facility] Auto (RBC) [Entitic mass]Ordered By: Price Arora on 12-13-0065PPY (RBC) [Entitic mass]27.5 pg26.7-34.0[facility] CenterHC Auto (RBC) [Mass/Vol]Ordered By: Price Arora on 10-34-9869RHGZ (RBC) [Mass/Vol]30.7 g/dL29.9-35.2[facility] CenterMCV Auto (RBC) [Entitic vol] Ordered By: Price Arora on 69-54-5726CLF (RBC) [Entitic vol]89.4 fL81.0-99.0 [facility] AndersonMonocytes Auto (Bld) [#/Vol]Ordered By: Price Arora on 24-74-9228Kshfetzqv (Bld) [#/Vol]0.6 10 3/uL0.3-0.8[facility] AndersonMonocytes/100 WBC Auto (Bld)Ordered By: Price Arora on 26-48-2046Qmhkkyxec/100 WBC (Bld)5.2 %1.7-12.0[facility] Neutrophils Auto (Bld) [#/Vol]Ordered By: Price Arora on 33-94-1839Owamjderthe (Bld) [#/Vol]7.7 10 3/uLHigh1.4-6.5FSouthern [facility] Medical Center Neutrophils/100 WBC Auto (Bld)Ordered By: Price Arora on 03-25-2025 Neutrophils/100 WBC (Bld)65.3 %43.0-75.0[facility] AndersonNo Panel InformationOrdered By: Price Arora on 79-32-8751Afhrd BacteriaTRACE #/HPFAbnormalNONE [facility] CenterUrine Culture ReflexedNO [facility] AndersonUrine Occult BloodNegativeNEGATIVEOur Lady Of Mercy Hospital - AndersonUrine Other CastsSEEN #/LPFAbnormalNONE [facility] CenterUrine Other CrystalsNone Seen #/HPFNone [facility] HospitalUrine RBC0-2 #/HPF0-2FSouthern [facility] Urine Squamous Epithelial CellsFEW #/LPFAbnormalNONE/RAREOur Lady Of Mercy Hospital - AndersonUrine WBC0-2 #/HPFAbnormalNONE [facility] CenterEosinophils # (Auto)0.3 10 3/uL0.0-0.7FSouthern [facility] Medical Center Immature Granulocyte # (Auto)0.04 10 3/uLHigh0.00-0.03[facility] AndersonPlatelet mean volume Auto (Bld) [Entitic vol]Ordered By: Price Arora on 49-18-4465Detxifpm mean volume (Bld) [Entitic vol]12.4 fL9.5-13.5FSouthern Ohio Medical CenterPlatelets Auto (Bld) [#/Vol]Ordered By: Price Arora on 97-45-7143Tvjhhpptw (Bld) [#/Vol]160 10 3/gU451-419FniqghwxoOur Lady Of Mercy Hospital - AndersonRBC Auto (Bld) [#/Vol]Ordered By: Price Arora on 76-76-2251LLG (Bld) [#/Vol]6.33 10 6/uLHigh4.20-5.40[facility] Hospitalerum or plasma anion gap determinationOrdered By: Price Arora on 86-71-2653Gsyfs gap [Moles/Vol]5.1 mmol/LFSouthern Ohio Medical CenterVascular Office/Clinic Noteon 07-70-6315Wrvtebnq Office/Clinic NoteChief Complaint lle wound History of [...] She has had testing done at the [facility] last year which she brought with her, [...] Electronically signed by Omero Santana 03/23/25 12:01 [facility] CenterPodiatry Office/Clinic Noteon 50-51-4785Hywlivts Office/Clinic NoteThe content of this note was [...] wraps (gauze, tila bandage, Coban II, tuba insurance premium auditor), Dakins solution, a 40-daycourse of antibiotics, and [...] other blood thinners. The patient resides in [place]. Review of Systems Constitutional: Negative for signs [...] their lower extremities Positi (more content not included)...NormalWayne Healthcare Main CampusComment on above:Order Comment: Missing Attachment [id number] Can be viewed in source systemXR Tibia/Fibula Righton 53-94-7075IQ Tibia/Fibula Right2 views right tib- fib demonstrate: [...] Signed, Electronically Signed in Other Vendor System)Normal Wayne Healthcare Main CampusResults Follow-Upon 92-88-9361Kzheqmq Follow-Up [id number] Mitzi Macias 1970 F Date Provider Department Center 02/04/2025 166-AMI ORO CARDIOLOGY None Family History Problem Relation Age of Onset Heart attack Paternal Grandmother Family Status - Relation Status Age at Mother Father Paternal GrandmotherNWilson HealthOrders Onlyon 75-07-6401Mytvjj [id number] Mitzi Macias 1970 F Date Provider Department Center 01/30/2025 [id number], [facility] Family History Problem Relation Age of Onset Heart attack Paternal Grandmother Family Status - Relation Status Age at Mother Father Paternal GrandmoBarney Children's Medical CenterCA ECHO DOPPLER COMPLETEon 01-23-3632[place] [address] Cardiology Report Signed Patient: MITZI MACIAS MR#: [id number] : 1970 Acct:[id number] Age/Sex: 54 / F ADM Date: 01/29/25 Loc: CARD Attending Dr: AMI ORO APRN Ordering Physician: AMI ORO APRN Date of Service: 01/29/25 Procedure(s): CA echo doppler complete Accession Number(s): [id number] cc: Mckayla Blas NUT DEHYDRATOR OPERATOR; AMI ORO APRN Patient Name: MITZI MACIAS MR#: [id number] : 1970 Exam Date: 01/29/2025 Ordering Doctor: AMI ORO PIPE BOWL PAINT TRIMMER ECHOCARDIOGRAM REPORT PROCEDURE: CA ECHO DOPPLER COMPLETE [...] HERRERA Signed By: 01/29/251839 DD/ 39 TD/TT: Tree Cutter:SONNYHRadiology, Radiologist, - 01/29/2025 [place] [address] Cardiology Report Signed Patient: MITZI MACIAS MR#: [id number] : 1970 Acct:[id number] Age/Sex: 54 / F ADM Date: 01/29/25 Loc: CARD Attending Dr: MAI ORO APRN Ordering Physician: AMI ORO APRN Date of Service: 01/29/25 Procedure(s): CA echo doppler complete Accession Number(s): [id number] cc: Mckayla Blas NUT DEHYDRATOR OPERATOR; AMI ORO APRN Patient Name: MITZI MACIAS MR#: [id number] : 1970 Exam Date: 01/29/2025 Ordering Doctor: [...] HERRERA Signed By: 01/29/251839 DD/ 39 TD/TT: Tree Cutter: CARLOS HealthcareRadiology Study observation (narrative)[facility] ECHO DOPPLER COMPLETEOrdered By: Radiologist Radiology on 26-45-1719KRTI [facility] Work Phone: Glucose (Bld) [Mass/Vol]on 22-77-1439Hboffin Blood, HWD174 mg/dLNOKS HealthcareLaboratory - Hematology and Cell countson 01-29-2025 HbA1c (Bld) [Mass fraction]8.4 %NOMS HealthcareNo Panel Informationon 01-29-2025 Interpretation and review of laboratory resultsAbnormalNOMS HealthcareNOMS HealthcareOffice Visiton 95-29-4753Cafcsr-up [id number] Mitzi Macias 1970 F Date Provider Department Center 01/06/2025 AMI SARABIA CARD [facility] Family History Problem Relation Age of Onset Heart attack Paternal Grandmother Family Status - Relation Status Age at Mother Father Paternal Grandmother Level of Service:17472 [place] OFFICE/OUTPATIENT ESTABLISHED MOD MDM 30 MIN Reason for Visit and Comments: Congestive Heart Failure [127] Hypertension [607839] Hyperlipidemia [182]NormalCorey Hospital36on Regarding lab results from 10/08/2024: MD Mickie Merritt MA Lipids, ALT AST, and BMP are normal. HbA1c was not performed. Continue current management. LM on patient's VM.NormalCorey HospitalGlucose (Bld) [Mass/Vol]Ordered By: Mica Sauceda on 98-19-6311Yqqftgy Blood, POC97 mg/dLNOKS HealthcareLaboratory - Hematology and Cell countson 74-08-2824ZxG2k (Bld) [Mass fraction]7.4 %NOMS HealthcareNo Panel InformationOrdered By: Mica Sauceda on 66-49-2220QDCI HealthcareTBH UA (CLEAN/CATCH) MICROSCOPIC IF INDICATEon 33-79-7197WNSXTDQOH URINENegativeNEGATIVENOMS HealthcareBLOOD URINENegative NEGATIVENOMS HealthcareClarity (U)CLEARCLEARNOMS HealthcareColor (U)YELLOWYELLOW NOMS HealthcareGLUCOSE URINE UANegativeNEGATIVE mg/dLNOMS Healthcare Interpretation and review of laboratory resultsAbnormalNOMS HealthcareKetones Ql (U)NegativeNEGATIVE mg/dLNOMS HealthcareLeukocyte esterase Test strip Ql (U) NegativeNEGATIVENOMS HealthcareNITRITE URINENegativeNEGATIVENOMS HealthcarepH (U)5.5 [pH]5.0 - 9.0NOMS HealthcareProtein (U) [Mass/Vol]30 mg/dLAbnormal NEG/TRACENOMS HealthcareSPECIFIC GRAVITY URINE>=1.275Yofakzke5.005 - 1.025NOKS HealthcareURINE MICROSCOPIC INDICATEDYESNOKS HealthcareUROBILINOGEN URINE1.0 EU/dL0.2 - 1.0 EU/dLNOKS HealthcareCLINISYNCNOMS HealthcareALL CBC WITH AUTO DIFFon 16-93-5748RRENDYYXB ABSOLUTE AUTO0.1NOMS HealthcareBasophils/100 WBC (Bld)0.5 %0.2 - 2.0 %NOMS HealthcareEosinophils/100 WBC (Bld)1.9 %0.9 - 7.0 % NOMS HealthcareErythrocyte distribution width (RBC) [Ratio]14.6 %11.0 - 15.0 % NOM HealthcareHematocrit (Bld) [Volume fraction]50.9 %High36.0 - 48.0 %NOM HealthcareHemoglobin (Bld) [Mass/Vol]16.1 g/zRGrxx26.0 - 16.0 g/dLKindred HospitalIMMATURE GRANULOCYTES ABS AUTO0.04HighNOLee's Summit HospitalImmature granulocytes/100 WBC (Bld)0.3 %0.0 - 0.5 %[facility] HealthcareInterpretation and review of laboratory resultsAbnormalNOKS HealthcareLYMPHOCYTES ABSOLUTE AUTO3.2 NOMCox Walnut LawnLymphocytes/100 WBC (Bld)25.1 %20.5 - 60.0 %[facility] Hospital JoplinH (RBC) [Entitic mass]29.2 pg26.7 - 34.0 pgNOSaint Luke's North Hospital–SmithvilleHC (RBC) [Mass/Vol] 31.6 g/dL29.9 - 35.2 g/dLMercy Hospital JoplinV (RBC) [Entitic vol]92.2 fL81.0 - 99.0 fLKindred HospitalMONOCYTES ABSOLUTE AUTO0.7NOKS HealthcareMonocytes/100 WBC (Bld)5.2 %1.7 - 12.0 %NOM HealthcareNEUTROPHILS ABSOLUTE AUTO8.6HighKindred HospitalNeutrophils/100 WBC (Bld)67 %43.0 - 75.0 %Kindred HospitalPlatelet mean volume (Bld) [Entitic vol]12.8 fL9.5 - 13.5 fLKindred HospitalTBH EO #0.2NOMS HealthcareSOU[facility] HPA814WjmSRUSFreeman Health System RBC5.52HighNOKS HealthcareSOUTH [facility] WBC12.8 [facility] CenterCLINISYNCNOMS HealthcareOffice Visiton 06-43-4800Nquctu-up [id number] Mitzi Macias 1970 F Date Provider Department Center 08/08/2024 43882-QALNHPDAKOTAH [facility] Family History Problem Relation Age of Onset Heart attack Paternal Grandmother Family Status - Relation Status Age at Paternal Grandmother Level of Service:89494 [place] OFFICE/OUTPATIENT ESTABLISHED MOD MDM 30 MIN Reason for Visit and Comments: Congestive Heart Failure [127] - Denies chest pain, SOB, and palpitations. Hypertension [122919] Hyperlipidemia [182] LVH [Other] Edema [[id number]] - Denies worsening edema. She sees wound care for RLE ulcer. She was seeing the vein specialists here in town but they are moving to [place] in a few weeks.NormalCorey HospitalProvider Letteron 38-66-8870Rsemliod LetterProvider Letter June 11, 2024 MITZI [address]AS [address] [place] [phone] : 1970 To Whom It May Concern, Please excuse above patient from work. Date of Illness: From: 06/11/24 8:30am To: 06/11/24 12:30pm Comments: _Brian Macias was with his for her doctor's appointment. Sincerely, Andra Forrester, Surgical SchedulerNormOhioHealth Doctors HospitalUrology Office/Clinic Noteon 08-53-5010Julsvaf Office/Clinic NoteUrology Office/Clinic Note Chief Complaint 18 mth HPI Staff 53 yo here 18 month f/u CT for adrenal mass. CT SCAN 05/12/24-[facility] Previous DX: adrenal mass, kidney stone, [...] [facility] [address], [place] [address]- Additional Instructions: [address] AP [...] TIDAC potassium chloride 10 (more content not included)...Kettering Health PrebleComment on above:Result Comment: Electronically Signed By: Elbert ARAUZ MD\.br\Date and Time Signed: 06/11/24 10:55 EST\.br\Electronically Co- Signed By: Maria Elena Negrete\.br\Date and Time Co-Signed: 06/11/24 10:53 EST Glucose (Bld) [Mass/Vol]Ordered By: Mica Sauceda on 64-23-2230Xuqdjqs Blood, TME122 mg/dLNOKS HealthcareLaboratory - Hematology and Cell countson 05-27-2024 HbA1c (Bld) [Mass fraction]9.2 %[facility] HealthcareNo Panel InformationOrdered By: Mica Sauceda on 47-59-8147CEWI HealthcareCT ABDOMEN PELVIS W CONon 05-12-2024 [place] [address] CT Scan Report Signed Patient: MITZI MACIAS MR#: [id number] : 1970 Acct:[id number] Age/Sex: 53 / F ADM Date: 05/12/24 Loc: CT Attending Dr: Gaviota MAYERS Ordering Physician: Gaviota Adames Date of Service: 05/12/24 Procedure(s): CT abdomen pelvis w con Accession Number(s): [id number] cc: Mckayla Blas NP [place] [id number] Patient Name: MITZI MACIAS MRN: TBH:[id number] date: 1970 Sex: F Assigned Patient Location: CT Current Patient Location: Accession/Order Number: [id number] Exam Date: 05/12/2024 11:15 Report Date: 05/12/2024 [...] Signed By: 05/12/24 1419 DD/ 1416 TD/TT: Tree Cutter:TBHRadiology, Radiologist, MD - 05/12/2024 [place] [address] CT Scan Report Signed Patient: MITZI MACIAS MR#: [id number] : 1970 Acct:[id number] Age/Sex: 53 / F ADM Date: 05/12/24 Loc: CT Attending Dr: Gaviota MAYERS Ordering Physician: Gaviota Adames Date of Service: 05/12/24 Procedure(s): CT abdomen pelvis w con Accession Number(s): [id number] cc: Mckayla Blas NP [place] [id number] Patient Name: MITZI MACIAS MRN: TBH:[id number] date: 1970 Sex: F Assigned Patient Location: CT Current Patient Location: Accession/Order Number: [id number] Exam Date: 05/12/2024 11:15 Report Date: 05/12/2024 [...] Signed By: 05/12/24 1419 DD/ 15 TD/TT: Tree Cutter: CARLOS HealthcareRadiology Study observation (narrative)[facility] HealthcareCT ABDOMEN PELVIS W CONOrdered By: Radiologist Radiology on 37-49-6580ITDT [employer] Work Phone: MR LUMBAR SPINE WO CONon 82-79-8934Beq[place], [place] [address] Magnetic Resonance Report Signed Patient: MITZI MACIAS MR#: [id number] : 1970 Acct:[id number] Age/Sex: 53 / F ADM Date: 05/12/24 Loc: MRI Attending Dr: Angela Cochran NP Ordering Physician: Angela Cochran NP Date of Service: 05/12/24 Procedure(s): MR lumbar spine wo con Accession Number(s): [id number] cc: Mckayla Blas NP; Angela Cochran NP [place] [address] Patient Name: MITZI MACIAS MRN: [id number] date: 1970 Sex: F Assigned Patient Location: MRI Current Patient Location: CT Accession/Order Number: [id number] Exam Date: 05/12/2024 09:21 Report Date: 05/12/2024 [...] Signed By: 05/12/24 1443 DD/ 1441 TD/TT: Tree Cutter:TBHRadiology, Radiologist, - 05/12/2024 [place] [address] Magnetic Resonance Report Signed Patient: MITZI MACIAS MR#: [id number] : 1970 Acct:[id number] Age/Sex: 53 / F ADM Date: 05/12/24 Loc: MRI Attending Dr: Angela Cochran NP Ordering Physician: Angela Cochran NP Date of Service: 05/12/24 Procedure(s): MR lumbar spine wo con Accession Number(s): [id number] cc: Mckayla Blas NP; Angela Cochran NP [address] [address] Patient Name: MITZI MACIAS MRN: [facility]:[id number] date: 1970 Sex: F Assigned Patient Location: MRI Current Patient Location: CT Accession/Order Number: [id number] Exam Date: 05/12/2024 09:21 Report Date: 05/12/2024 [...] Signed By: 05/12/24 1443 DD/ 1441 TD/TT: Tree Cutter: CARLOS HealthcareRadiology Study observation (narrative)[facility] LUMBAR SPINE WO CONOrdered By: Radiologist Radiology on 74-62-6513LBKC Healthcare Work Phone: TB CREATININEon 91-29-8934Vvlbofdemy [Mass/Vol]0.92 mg/dL0.55 - 1.02 mg/dLNOKS HealthcareGFR/1.73 sq M.predicted CKD-EPI (S/P/Bld) [Vol rate/Area]>60>=60 mL/min/1.73m 2NOMS HealthcareTBH EGFR-NON AF CANADIAN>60 >=60 mL/min/1.73m 2NOMS HealthcareCLINISYNCNTULSA CENTER FOR BEHAVIORAL HEALTH [facility]UL[facility] HealthcareSEGMENTAL BLOOD PRESSUREon 25-09-0216KbrProcious[place] [address] Vein Report Signed Patient: MITZI MACIAS MR#: [id number] : 1970 Acct:[id number] Age/Sex: 53 / F ADM Date: 04/24/24 Loc: VC Attending Dr: Comfort Pretty Ordering Physician: Comfort Pretty Date of Service: 04/24/24 Procedure(s): VC SEGMENTAL PRESSURES Accession Number(s): [id number] cc: Mckayla Blas NP; Comfort Pretty [place] [id number] Patient Name: MITZI MACIAS MRN: [id number] date: 1970 Sex: F Assigned Patient Location: Current Patient Location: Accession/Order Number: [id number] Exam Date: 04/24/2024 10:25 Report Date: 04/24/2024 11:20 At the request of: COMFORT PRETTY Procedure: VC SEGMENTAL PRESSURES EXAM: VC SEGMENTAL PRESSURES HISTORY: R09.89 COMPARISON: None. FINDINGS: Segmental pressures presented as follows (right, left) in mmHg. Brachial: 169, 166 Upper thigh: Not obtained Lower thigh: 129, 119 Calf: 124, 106 DPA: 108, 105 [place] JUDGE: 100, 91 1st Toe: 124, 142 ISABELLE: [...] Signed By: 04/24/24 1123 DD/ 1120 TD/TT: Tree Cutter:TBHRadiology, Radiologist, - 04/24/2024 [place] [address] Vein Report Signed Patient: MITZI MACIAS MR#: [id number] : 1970 Acct:[id number] Age/Sex: 53 / F ADM Date: 04/24/24 Loc: VC Attending Dr: Comfort Pretty Ordering Physician: Comfort Pretty Date of Service: 04/24/24 Procedure(s): VC SEGMENTAL PRESSURES Accession Number(s): [id number] cc: Mckayla Blas NP; Comfort Pretty [place] [id number] Patient Name: MITZI MACIAS MRN: [facility]:[id number] date: 1970 Sex: F Assigned Patient Location: Current Patient Location: VC Accession/Order Number: [id number] Exam Date: 04/24/2024 10:25 Report Date: 04/24/2024 11:20 At the request of: COMFORT PRETTY Procedure: VC SEGMENTAL PRESSURES EXAM: VC SEGMENTAL PRESSURES HISTORY: R09.89 COMPARISON: None. FINDINGS: Segmental pressures presented as follows (right, left) in mmHg. Brachial: 169, 166 Upper thigh: Not obtained Lower thigh: 129, 119 Calf: 124, 106 DPA: 108, 105 COURT [place] JUDGE: 100, 91 1st Toe: 124, 142 ISABELLE: [...] moderate arterial occlusive disease Electronically authenticated by: MARAYNNE CELESTIN Date: 04/24/2024 11:20 Dictated By: Maryanne Celestin M.D. Signed By: 04/24/24 1123 DD/ 1120 TD/TT: Tree Cutter: CARLOS HealthcareRadiology Study observation (narrative)NOMS HealthcareSEGMENTAL BLOOD PRESSUREOrdered By: Radiologist Radiology on 47-40-7778NYSV [employer] Work Phone: mm TOMOSYNTHESIS SCREENING BIon 55-43-3715WvtProcious, [place] [address] Mammography Report Signed Patient: MITZI MACIAS MR#: [id number] : 1970 Acct:[id number] Age/Sex: 53 / F ADM Date: 12/13/23 Loc: MAMMO Attending Dr: Mckayla Blas NP Ordering Physician: Mckayla Blas NP Results: Date of Service: 12/13/23 Follow Up: Procedure(s): MM tomosynthesis screening BI Accession Number(s): [id number] cc: Mckayla Blas NP Patient Name: MITZI MACIAS MR#: [id number] : 1970 Exam Date: 12/13/2023 Ordering Doctor: [...] unknown cancer at age 75. LOCATION: [facility] BREAST COMPOSITION: The breasts are almost entirely [...] Signed By: 12/14/23 1122 DD/ 1121 TD/TT: Tree Cutter:TBHRadiology, Radiologist, MD - 12/14/2023 [place] [address] Mammography Report Signed Patient: MITZI MACIAS MR#: [id number] : 1970 Acct:[id number] Age/Sex: 53 / F ADM Date: 12/13/23 Loc: MAMMO Attending Dr: Mckayla Blas NP Ordering Physician: Mckayla Blas NP Results: Date of Service: 12/13/23 Follow Up: Procedure(s): MM tomosynthesis screening BI Accession Number(s): [id number] cc: Mckalya Blas NP Patient Name: MITZI MACIAS MR#: [id number] : 1970 Exam Date: 12/13/2023 Ordering Doctor: [...] unknown cancer at age 75. LOCATION: [facility] BREAST COMPOSITION: The breasts are almost entirely [...] Signed By: 12/14/23 1122 DD/ 1121 TD/TT: Tree Cutter: [facility] HospitalRadiology Study observation (narrative)[facility] TOMOSYNTHESIS SCREENING BIOrdered By: Radiologist Radiology on 41-24-2646NZANKindred Hospital Work Phone: bLOOD CULTURE 1on 54-42-0996JENAA CULTURE 1 Blood Culture 1 NG5D NO GROWTH AT 5 DAYS.^NO GROWTH AT 5 DAYS. [facility] HealthcareBLOOD CULTURE 2on 12-50-4560FKYBF CULTURE 2 Blood Culture 2 NG5D NO GROWTH AT 5 DAYS.^NO GROWTH AT 5 DAYS. [facility] HospitalNo Panel Informationon [id number] HealthcareECG 12-LEADon [id number] [address] [address] Electrocardiograph Report Signed Patient: MITZI MACIAS MR#: [id number] : 1970 Acct:[id number] Age/Sex: 53 / F ADM Date: 08/31/23 Loc: MS 214-[address]: Jacqueline Becerra D.O. Ordering Physician: Andra Alcala Date of Service: 08/31/23 Procedure(s): ECG 12 lead Accession Number(s): [id number] cc: [facility] Test Date: 2023-08-31 Pat Name: MITZI MACIAS Department: Room: - Gender: Female Picture Framer: : 1970 Requested By: MCKAYLA BLAS Order Number: [id number] Reading MD: LAURI DIOR Measurements Intervals [place] Rate: 102 P: 67 WV: 144 QRS: 52 QRSD: 72 T: 49 QT: 326 QTc: 385 Interpretive Statements 1120 Sinus tachycardia 4068 Nonspecific Twave abnormality 8102 Low QRS voltage in chest leads 9140 abnormal rhythm ECG Compared to ECG 12/04/2022 21:27:48 Electronically Signed On 09-02-2023 7:31:43 EST by LAURI DIOR Dictated By: Lauri Dior D.O. Signed By: 09/02/23 0732 DD/ 1808 TD/TT: Tree Cutter:TBHRadiology, Radiologist, - 09/02/2023 [place] [address] Electrocardiograph Report Signed Patient: MITZI MACIAS MR#: [id number] : 1970 Acct:[id number] Age/Sex: 53 / F ADM Date: 08/31/23 Loc: MS 214-[address]: Jacqueline Becerra D.O. 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 Signed By: 09/02/23 0732 DD/ 1808 TD/TT: Tree Cutter: CARLOS [facility] 12-LEADOrdered By: Radiologist Radiology on [id number] [employer] Work Phone: ECG 12-LEADon 45-97-3278Uplavoqop Study observation (narrative)[facility] FOR WOMENHenna The [facility] SystemCBC AUTO DIFFon 52-81-1300JDIT #0.0 103/ulNormal 0.0-0.1The [facility] ClinicComment on above:Performed By: #### CBC #### [facility] [address] [place] [address] Dr. Ashlie HillsBasophils/100 WBC (Bld)0.1 %Critically low0.2-2.0The [facility] ClinicComment on above:Performed By: #### CBC #### [facility] [address] [place] [address] Dr. Ashlie Mcintosh #0.0 103/ulNormal0.0-0.7The [facility] ClinicComment on above: Performed By: #### CBC #### [facility] [address] [place] [address] Dr. Ashlie Grahamosinophils/100 WBC (Bld)0.0 %Critically low0.9-7.0The [facility] ClinicComment on above:Performed By: #### CBC #### [facility] [address] [place] [address] Dr. Ashlie Grahamrythrocyte distribution width (RBC) [Ratio]14.9 %Vkfiho81.0-15.0 The [facility] ClinicComment on above:Performed By: #### CBC #### [facility] [address] [place] [address] Dr. Yilan ChangHematocrit (Bld) [Volume fraction]46.2 %Hiyczk45.0-48.0The [facility] ClinicComment on above:Performed By: #### CBC #### [facility] [address] [place] [address] Dr. Ashlie HillsHemoglobin (Bld) [Mass/Vol]14.7 g/sVVdrpfx69.0-16.0The [facility] HospitalComment on above:Performed By: #### CBC #### [facility] [address] [place] [address] Dr. Ashlie HillsIG #0.06 10e3/ulCritically high0.00-0.03The [facility] Comment on above:Performed By: #### CBC #### [facility] [address] [place] [address] Dr. Ashlie HillsIG %0.4 %Normal0.0-0.5The [facility] ClinicComment on above: Performed By: #### CBC #### [facility] [address] [place] [address] Dr. Ashlie Swenson #1.3 103/ulNormal1.2-3.8The [facility] ClinicComment on above:Performed By: #### CBC #### [facility] [address] [place] [address] Dr. Ashlie Jademphocytes/100 WBC (Bld)9.4 %Critically low20.5-60.0The [facility] ClinicComment on above:Performed By: #### CBC #### [facility] [address] [place] [address] Dr. Ashlie HillsMANUAL DIFF REQNONormalThe [facility]opathic ClinicComment on above: Performed By: #### CBC #### [facility] [address] [place] [address] Dr. Ashlie Granger (RBC) [Entitic mass]28.4 dgOshzgc25.7-34.0The [facility] ClinicComment on above:Performed By: #### CBC #### [facility] [address] [place] [address] Dr. Ashlie Mckeon (RBC) [Mass/Vol]31.8 g/qRNpmrzg90.9-35.2The [facility] ClinicComment on above:Performed By: #### CBC #### [facility] [address] [address] [address] Ashlie MckeonV (RBC) [Entitic vol]89.4 rBJbkkkk01.0-99.0The [facility] ClinicComment on above:Performed By: #### CBC #### [facility] [address] [address] [address] Ashlie Killian #0.5 103/ulNormal0.3-0.8The [facility] ClinicComment on above:Performed By: #### CBC #### [facility] [address] [address] [address] Ashlie Palominoocytes/100 WBC (Bld)3.4 %Normal1.7-12.0[facility] Comment on above:Performed By: #### CBC #### [facility] [address] [address] [address] Ashlie Olsen #11.8 103/ulCritically high1.4-6.5The [facility] Comment on above:Performed By: #### CBC #### [facility] [address] [place] [address] Dr. Ashlie Steinutrophils/100 WBC (Bld)86.7 %Critically high43.0-75.0The [facility] ClinicComment on above:Performed By: #### CBC #### [facility] [address] [address] [address] Ashlie Lantigualet mean volume (Bld) [Entitic vol]12.6 fLNormal9.5-13.5The [facility] ClinicComment on above:Performed By: #### CBC #### [facility] [address] [address] [address] Ashlie HillsPLT133 103/ulCritically exo517-454Vdo [facility] ClinicComment on above:Performed By: #### CBC #### [facility] [address] [address] [address] Ashlie HillsRBC5.17 106/ulNormal4.20-5.40The [facility] ClinicComment on above:Performed By: #### CBC #### [facility] [address] [place] [address] Dr. Ashlie HillsWBC13.6 103/ulCritically high4.0-11.0The [facility] ClinicComment on above:Performed By: #### CBC #### [facility] [address] [place] [address] Dr. Ashlie HillsMAGNESIUMon 40-03-4256Qablcxnyw [Mass/Vol]2.2 mg/dLNormal1.8-2.4 The [facility] ClinicCommymichigan medical center clare on above:Performed By: #### INFLUAB #### [facility] [address] [place] [address] Dr. Ashlie HillsPOINT OF CARE GLUCOSEon 93-92-8619Lzmgodw [Mass/Vol]340 mg/dL Critically ndlq98-357Zhu [facility] ClinicComment on above:Performed By: #### POCGLUC #### [facility] [address] [place] [address] Dr. Ashlie HillsGlucose [Mass/Vol]276 mg/dLCritically otpm95-820Xry [facility] ClinicComment on above:Performed By: #### CBC #### [facility] [address] [place] [address] Dr. Ashlie HillsGlucose [Mass/Vol]333 mg/dLCritically zlhg80-496Cdv [facility] ClinicComment on above:Performed By: #### CBC #### [facility] [address] [place] [address] Dr. Ashlie HillsPROF CHEM 8 (BAS METB)on 16-50-2527Krteq gap [Moles/Vol]10.9 mmol/LNormalMetrohealth Main Campus Medical CenterComment on above:Performed By: #### INFLUAB #### [facility] [address] [place] [address] Dr. Ashlie HillsCalcium [Mass/Vol]9.3 mg/dLNormal8.5-10.1[facility] Comment on above:Performed By: #### INFLUAB #### [facility] [address] [address] [address] Ashlie HillsChloride [Moles/Vol]103 mmol/TTromjl97-467Xvq [facility] Comment on above:Performed By: #### INFLUAB #### [facility] [address] [address] [address] Ashlie HillsCO2 [Moles/Vol]31.2 mmol/OSdwzlk42.0-32.0[facility] Comment on above:Performed By: #### INFLUAB #### [facility] [address] [place] [address] Dr. Ashlie HillsCreatinine [Mass/Vol]0.96 mg/dLNormal0.55-1.02The [facility] ClinicComment on above:Performed By: #### INFLUAB #### [facility] [address] [place] [address] Dr. Ashlie GrahamGFR-AF CANADIAN>60Normal>=60The [facility] ClinicComment on above:Performed By: #### INFLUAB #### [facility] [address] [place] [address] Dr. Ashlie GrahamGFR-NON AF CANADIAN>60Normal>=60The [facility] ClinicComment on above:Performed By: #### INFLUAB #### [facility] [address] [address] [address] Ashlie HillsGlucose [Mass/Vol]288 mg/dLCritically jvgn67-361Jxr [facility] ClinicComment on above:Performed By: #### INFLUAB #### [facility] [address] [address] [address] Ashlie HillsPotassium [Moles/Vol]5.1 mmol/LNormal3.5-5.1[facility] Comment on above:Performed By: #### INFLUAB #### [facility] [address] [place] [address] Dr. Ashlie HillsSodium [Moles/Vol]140 mmol/UFbnteu619-393CryMetrohealth Main Campus Medical Center Comment on above:Performed By: #### INFLUAB #### [facility] [address] [place] [address] Dr. Ashlie Jones nitrogen [Mass/Vol]30.0 mg/dLCritically high7.0-18.0The [facility] ClinicComment on above:Performed By: #### INFLUAB #### [facility] [address] [place] [address] Dr. Ashlie Jones nitrogen/Creatinine [Mass ratio]31.2 mg/mgNormalThe [facility] Mills HospitalComment on above:Performed By: #### INFLUAB #### [facility] [address] [place] [address] Dr. Ashlie Chinchilla AUTO DIFFon [id number] #0.0 103/ulNormal0.0-0.1The [facility] ClinicComment on above:Performed By: #### CBC #### [facility] [address] [place] [address] Dr. Ashlie HillsBasophils/100 WBC (Bld)0.4 %Normal0.2-2.0[facility] Comment on above:Performed By: #### CBC #### [facility] [address] [place] [address] Dr. Ashlie Mcintosh #0.0 103/ulNormal0.0-0.7The [facility] ClinicComment on above: Performed By: #### CBC #### [facility] [address] [place] [address] Dr. Ashlie Grahamosinophils/100 WBC (Bld)0.0 %Critically low0.9-7.0The [facility] ClinicComment on above:Performed By: #### CBC #### [facility] [address] [place] [address] Dr. Ashlie Grahamrythrocyte distribution width (RBC) [Ratio]14.8 %Rxbhdn73.0-15.0 The [facility] ClinicComment on above:Performed By: #### CBC #### [facility] [address] [place] [address] Dr. Ashlie HillsHematocrit (Bld) [Volume fraction]49.9 %Critically high36.0-48.0 The [facility] ClinicComment on above:Performed By: #### CBC #### [facility] [address] [place] [address] Dr. Ashlie HillsHemoglobin (Bld) [Mass/Vol]15.7 g/kMKafvbv56.0-16.0The [facility] ClinicComment on above:Performed By: #### CBC #### [facility] [address] [place] [address] Dr. Ashlie Hunter #0.04 10e3/ulCritically high0.00-0.03The [facility] Comment on above:Performed By: #### CBC #### [facility] [address] [place] [address] Dr. Ashlie Hunter %0.5 %Normal0.0-0.5The [facility] ClinicComment on above: Performed By: #### CBC #### [facility] [address] [place] [address] Dr. Ashlie Swenson #1.1 103/ulCritically low1.2-3.8The [facility] Comment on above:Performed By: #### CBC #### [facility] [address] [place] [address] Dr. Ashlie Dsouzahocytes/100 WBC (Bld)12.7 %Critically low20.5-60.0The [facility] ClinicComment on above:Performed By: #### CBC #### [facility] [address] [place] [address] Dr. Ashlie GhoshUAL DIFF REQNONormalThe [facility] ClinicComment on above: Performed By: #### CBC #### [facility] [address] [place] [address] Dr. Ashlie Granger (RBC) [Entitic mass]28.1 urSiqesh71.7-34.0The [facility] ClinicComment on above:Performed By: #### CBC #### [facility] [address] [place] [address] Dr. Ashlie Mckeon (RBC) [Mass/Vol]31.5 g/lFQjpdjh56.9-35.2The [facility] ClinicComment on above:Performed By: #### CBC #### [facility] [address] [address] [address] Ashlie Mckeon (RBC) [Entitic vol]89.3 vPQnbwqi35.0-99.0The [facility] ClinicComment on above:Performed By: #### CBC #### [facility] [address] [place] [address] Dr. Ashlie Killian #0.1 103/ulCritically low0.3-0.8The [facility] ClinicComment on above:Performed By: #### CBC #### [facility] [address] [place] [address] Dr. Ashlie Palominoocytes/100 WBC (Bld)1.3 %Critically low1.7-12.0The [facility] ClinicComment on above:Performed By: #### CBC #### [facility] [address] [place] [address] Dr. Ashlie Olsen #7.2 103/ulCritically high1.4-6.5The [facility] Comment on above:Performed By: #### CBC #### [facility] [address] [place] [address] Dr. Ashlie Steinutrophils/100 WBC (Bld)85.1 %Critically high43.0-75.0The [facility] ClinicComment on above:Performed By: #### CBC #### [facility] [address] [place] [address] Dr. Ashlie Lantigualet mean volume (Bld) [Entitic vol]12.2 fLNormal9.5-13.5The [facility] ClinicComment on above:Performed By: #### CBC #### [facility] [address] [place] [address] Dr. Ashlie HillsPLT116 103/ulCritically rsh094-756Lyd [facility] ClinicComment on above:Performed By: #### CBC #### [facility] [address] [address] [address] Ashlie HillsRBC5.59 106/ulCritically high4.20-5.40The [facility] Comment on above:Performed By: #### CBC #### [facility] [address] [address] [address] Ashlie HillsWBC8.5 103/ulNormal4.0-11.0The [facility] ClinicComment on above: Performed By: #### CBC #### [facility] [address] [address] [address] Ashlie Harrison CHEST WO W CONon 04-95-0808ARK CHEST WO W CONEXAMINATION: CTA CHEST WO [...] Electronically authenticated by: HATTIE GOFF Date: 2022-12-05 01:[address] [place], [place] [address]ue HospitalMAGNESIUMon 66-94-6984Oitojwcud [Mass/Vol]2.1 mg/dLNormal 1.8-2.4The [facility] ClinicComment on above:Performed By: #### POCGLUC #### [facility] [address] [address] [address] Ashlie HillsPOINT OF CARE GLUCOSEon 43-94-8918Hjdkzyy [Mass/Vol]293 mg/dL Critically ppot35-833JedMetrohealth Main Campus Medical CenterComment on above:Performed By: #### POCGLUC #### [facility] [address] [address] [address] Ashlie HillsGlucose [Mass/Vol]269 mg/dLCritically maqk40-053Daw [facility] ClinicComment on above:Performed By: #### POCGLUC #### [facility] [address] [place] [address] Dr. Ashlie HillsGlucose [Mass/Vol]223 mg/dLCritically kzkl24-374Wec [facility] ClinicComment on above:Performed By: #### CVDAGS #### [facility] [address] [address] [address] Ashlie HillsPROF CHEM 8 (BAS METB)on 89-90-6086Muhnw gap [Moles/Vol]11.6 mmol/LNormalMetrohealth Main Campus Medical CenterComment on above:Performed By: #### POCGLUC #### [facility] [address] [address] [address] Ashlie HillsCalcium [Mass/Vol]9.2 mg/dLNormal8.5-10.1[facility] Comment on above:Performed By: #### POCGLUC #### [facility] [address] [address] [address] Ashlie HillsChloride [Moles/Vol]102 mmol/KUoqqsp73-431McxMetrohealth Main Campus Medical Center Comment on above:Performed By: #### POCGLUC #### [facility] [address] [place] [address] Dr. Ashlie HillsCO2 [Moles/Vol]28.7 mmol/OZqklui47.0-32.0The [facility] Comment on above:Performed By: #### POCGLUC #### [facility] [address] [address] [address] Ashlie HillsCreatinine [Mass/Vol]1.04 mg/dLCritically high0.55-1.02[facility] CenterComment on above:Performed By: #### POCGLUC #### [facility] [address] [address] [address] Ashlie GrahamGFR-AF CANADIAN>60Normal>=60The [facility] ClinicComment on above:Performed By: #### POCGLUC #### [facility] [address] [address] [address] Ashlie GrahamGFR-NON AF JHJJHZAT21 mL/min/1.19o4Pkkbgjvkfv low>=60The [facility] ClinicComment on above:Performed By: #### POCGLUC #### [facility] [address] [address] [address] Ashlie HillsGlucose [Mass/Vol]231 mg/dLCritically gucl63-427Hcf [facility] ClinicComment on above:Performed By: #### POCGLUC #### [facility] [address] [address] [address] Ashlie HillsPotassium [Moles/Vol]4.3 mmol/LNormal3.5-5.1[facility] Comment on above:Performed By: #### POCGLUC #### [facility] [address] [address] [address] Ashlie HillsSodium [Moles/Vol]138 mmol/ZGcvghl909-774JwiMetrohealth Main Campus Medical Center Comment on above:Performed By: #### POCGLUC #### [facility] [address] [address] [address] Ashlie HillsUrea nitrogen [Mass/Vol]17.0 mg/dLNormal7.0-18.0The [facility] ClinicComment on above:Performed By: #### POCGLUC #### [facility] [address] [address] [address] Ashlie HillsUrea nitrogen/Creatinine [Mass ratio]16.3 mg/mgNormalThe [facility] ClinicComment on above:Performed By: #### POCGLUC #### [facility] [address] [address] [address] Ashlie HillsRESPIRATORY PANEL PLUSon 24-43-6384YtouecfuxiHgh detectedNormal NOT DETECTEDThe [facility] ClinicComment on above:Performed By: #### CVDAGS #### [facility] [address] [address] [address] Ashlie Gandhi ParapertusisNot detectedNormalNOT DETECTEDThe [facility] ClinicComment on above:Performed By: #### CVDAGS #### [facility] [address] [address] [address] Ashlie Gandhi PertussisNot detectedNormalNOT DETECTEDThe [facility] on above:Performed By: #### CVDAGS #### [facility] [address] [address] [address] Ashlie HillsChlamydia PneumoniaeNot detectedNormalNOT DETECTEDThe [facility] ClinicComment on above:Performed By: #### CVDAGS #### [facility] [address] [address] [address] Ashlie HillsCoronavirus 229ENot detectedNormalNOT DETECTEDThe [facility] ClinicCommymichigan medical center clare on above:Performed By: #### CVDAGS #### [facility] [address] [address] [address] Ashlie HillsCoronavirus AZU1Zch detectedNormalNOT DETECTEDThe [facility] ClinicComment on above:Performed By: #### CVDAGS #### [facility] [address] [address] [address] Ashlie HillsCoronavirus SW71Wxi detectedNormalNOT DETECTEDThe [facility] ClinicComment on above:Performed By: #### CVDAGS #### [facility] [address] [address] [address] Ashlie HillsCoronavirus OL75Ccr detectedNormalNOT DETECTEDThe [facility] ClinicComment on above:Performed By: #### CVDAGS #### [facility] [address] [address] [address] Ashlie Centeno H1Not detectedNormalNOT DETECTEDThe [facility] Comment on above:Performed By: #### CVDAGS #### [facility] [address] [address] [address] Ashlie Centeno H1 2009Not detectedNormalNOT DETECTEDThe [facility] ClinicComment on above:Performed By: #### CVDAGS #### [facility] [address] [address] [address] Ashlie Centeno H3Not detectedNormalNOT DETECTEDThe [facility] Comment on above:Performed By: #### CVDAGS #### [facility] [address] [address] [address] Ashlie Lockhart BNot detectedNormalNOT DETECTEDMetrohealth Main [facility] Center Comment on above:Performed By: #### CVDAGS #### [facility] [address] [address] [address] Ashlie ChávezapneumovirusNot detectedNormalNOT DETECTEDThe [facility] ClinicComment on above:Performed By: #### CVDAGS #### [facility] [address] [address] [address] Ashlie Jimenez. PneumoniaeNot detectedNormalNOT DETECTEDThe [facility] ClinicCommymichigan medical center clare on above:Performed By: #### CVDAGS #### [facility] [address] [address] [address] Ashlie Mendieta 1Not detectedNormalNOT DETECTEDThe [facility] ClinicComment on above:Performed By: #### CVDAGS #### [facility] [address] [address] [address] Ashlie Mendieta 2Not detectedNormalNOT DETECTEDThe [facility] ClinicCommymichigan medical center clare on above:Performed By: #### CVDAGS #### [facility] [address] [address] [address] Ashlie Mendieta 3DetectedAbnormalNOT DETECTEDThe [facility] Comment on above:Performed By: #### CVDAGS #### [facility] [address] [place] [address] Dr. Ashlie Harringtonfluenza 4Not detectedNormalNOT DETECTEDThe [facility] ClinicComment on above:Performed By: #### CVDAGS #### [facility] [address] [place] [address] Dr. Ashlie HillsRhino/EnterovirusNot detectedNormalNOT DETECTEDThe [facility] ClinicComment on above:Performed By: #### CVDAGS #### [facility] [address] [place] [address] Dr. Ashlie Gallagher Header 1RESPIRATORY PANEL: VIRUSESBethesda North Hospital Comment on above:Performed By: #### CVDAGS #### [facility] [address] [place] [address] Dr. Ashlie Gallagher Header 2RESPIRATORY PANEL: BACTERIABethesda North HospitalComment on above:Performed By: #### CVDAGS #### [facility] [address] [place] [address] Dr. Ashlie TerryVNot detectedNormalNOT DETECTEDThe [facility] ClinicCommymichigan medical center clare on above:Performed By: #### CVDAGS #### [facility] [address] [place] [address] Dr. Ashlie Finney-CoV-2 (COVID-19) RNA MADDY+probe Ql (Unsp spec)Not detected NormalNOT DETECTEDThe [facility] Hospital - Akronment on above:Performed By: #### CVDAGS #### [facility] [address] [place] [address] Dr. Ashlie HillsXR CHEST 1 Von [id number] CHEST 1 VEXAMINATION: XR CHEST 1 V HISTORY: Shortness of breath COMPARISON: Chest x-ray 08/09/2021 TECHNIQUE: Portable chest FINDINGS: The lung parenchyma is free of consolidation or infiltrate. No pneumothorax or pleural effusion. The cardiac, mediastinal and hilar contours are normal. The visualized osseous structures exhibit no gross abnormality. IMPRESSION: No acute cardiopulmonary abnormality. Electronically authenticated by: MARYANNE POWER Date: 2022-12-04 22:23NoHarrison Community HospitalBLOOD GASES BTYon [id number] [facility] Memorial HospitalComment on above:Performed By: #### CBC #### [facility] [facility] [address] [address] [address] Ashlie Duran TESTPositiveBethesda North HospitalCommymichigan medical center clare on above: Performed By: #### CBC #### [facility] [address] [address] [address] Ashlie Crenshaw excess Calc (Bld) [Moles/Vol]5.4 mmol/LCritically high -2.0-2.0[facility] on above:Performed By: #### CBC #### [facility] [address] [address] [address] Ashlie Cevallos [facility] on above: Performed By: #### CBC #### [facility] [address] [address] [address] Ashlie HillsCPOhioHealth Pickerington [facility] on above:Performed By: #### CBC #### [facility] [address] [address] [address] Ashlie RodUllxjBZO6GthbhyRlfParkwood Hospital on above:Performed By: #### CBC #### [facility] [address] [address] [address] Ashlie BahenaO3 (Bld) [Moles/Vol]30.8 mmol/LCritically high22.0-26.0[facility] on above:Performed By: #### CBC #### [facility] [address] [address] [address] Ashlie HillsLPMNormalMetrohealth Main Campus Medical CenterCommymichigan medical center clare on above:Performed By: #### CBC #### [facility] [address] [address] [address] Ashlie HackettSelect Medical OhioHealth Rehabilitation Hospital - DublinCommymichigan medical center clare on above: Performed By: #### CBC #### [facility] [address] [address] [address] Ashlie HillsOxygen (Bld) [Partial pressure]46.3 mm[Hg]Critically low 80.0-100.0The [facility] ClinicComment on above:Performed By: #### CBC #### [facility] [address] [place] [address] Dr. Ashlie HillsOxygen saturation in Blood83.9 %Critically low95.0-100.0[facility] on above:Performed By: #### CBC #### [facility] [address] [place] [address] Dr. Ashlie HillsPCO254.2 mmHgCritically high35.0-45.0The [facility] ClinicCommymichigan medical center clare on above:Performed By: #### CBC #### [facility] [address] [place] [address] Dr. Ashlie HillsMarietta Osteopathic ClinicCommymichigan medical center clare on above:Performed By: #### CBC #### [facility] [address] [place] [address] Dr. Ashlie Knapp (Bld)7.363 [pH]Normal7.350-7.450[facility] on above:Performed By: #### CBC #### [facility] [address] [place] [address] Dr. Ashlie VerasHenry County Hospital on above:Performed By: #### CBC #### [facility] [address] [place] [address] Dr. Ashlie HillsOhio State University Wexner Medical CenterCommymichigan medical center clare on above:Performed By: #### CBC #### [facility] [address] [place] [address] Dr. Ashlie Avendano Dunlap Memorial HospitalCommymichigan medical center clare on above: Performed By: #### CBC #### [facility] [address] [place] [address] Dr. Ashlie GoldClinton Memorial HospitalCommymichigan medical center clare on above:Performed By: #### CBC #### [facility] [address] [place] [address] Dr. Ashlie HillsCleveland Clinic South Pointe HospitalCommymichigan medical center clare on above:Performed By: #### CBC #### [facility] [address] [place] [address] Dr. Ashlie DoeNormalThe [facility] ClinicComment on above:Performed By: #### CBC #### [facility] [address] [place] [address] Dr. Ashlie Perry [id number] peptide B (Bld) [Mass/Vol]76.0 pg/mL Normal<=900.0The [facility] ClinicComment on above:Performed By: #### POCGLUC #### [facility] [address] [place] [address] Dr. Ashlie Chinchilla AUTO DIFFon [id number] #0.1 103/ulNormal0.0-0.1The [facility] ClinicComment on above:Performed By: #### CBC #### [facility] [address] [place] [address] Dr. Ashlie HillsBasophils/100 WBC (Bld)0.6 %Normal0.2-2.0[facility] Comment on above:Performed By: #### CBC #### [facility] [address] [place] [address] Dr. Ashlie Mcintosh #0.2 103/ulNormal0.0-0.7The [facility] ClinicCommymichigan medical center clare on above: Performed By: #### CBC #### [facility] [address] [place] [address] Dr. Ashlie Grahamosinophils/100 WBC (Bld)1.9 %Normal0.9-7.0[facility] Comment on above:Performed By: #### CBC #### [facility] [address] [place] [address] Dr. Ashlie Grahamrythrocyte distribution width (RBC) [Ratio]15.0 %Ytdzbc92.0-15.0 [facility] Medical CenterComment on above:Performed By: #### CBC #### [facility] [address] [place] [address] Dr. Ashlie HillsHematocrit (Bld) [Volume fraction]49.1 %Critically high36.0-48.0 The [facility] ClinicComment on above:Performed By: #### CBC #### [facility] [address] [place] [address] Dr. Ashlie HillsHemoglobin (Bld) [Mass/Vol]15.6 g/tTHlythx88.0-16.0The [facility] ClinicComment on above:Performed By: #### CBC #### [facility] [address] [place] [address] Dr. Ashlie Hunter #0.02 10e3/ulNormal0.00-0.03The [facility] ClinicComment on above:Performed By: #### CBC #### [facility] [address] [place] [address] Dr. Ashlie Hunter %0.2 %Normal0.0-0.5The [facility] ClinicComment on above: Performed By: #### CBC #### [facility] [address] [place] [address] Dr. Ashlie Swenson #2.8 103/ulNormal1.2-3.8The [facility] ClinicComment on above:Performed By: #### CBC #### [facility] [address] [place] [address] Dr. Ashlie Dsouzahocytes/100 WBC (Bld)29.9 %Bjbkdm43.5-60.0The [facility] ClinicComment on above:Performed By: #### CBC #### [facility] [address] [place] [address] Dr. Ashlie GhoshUAL DIFF REQNONormalThe [facility] ClinicComment on above: Performed By: #### CBC #### [facility] [address] [place] [address] Dr. Ashlie Granger (RBC) [Entitic mass]28.5 wbTaplvr22.7-34.0The [facility] ClinicComment on above:Performed By: #### CBC #### [facility] [address] [place] [address] Dr. Ashlie Mckeon (RBC) [Mass/Vol]31.8 g/rOEtptgf38.9-35.2The [facility] ClinicComment on above:Performed By: #### CBC #### [facility] [address] [place] [address] Dr. Ashlie MckeonV (RBC) [Entitic vol]89.8 gLMplvrq03.0-99.0The [facility] ClinicComment on above:Performed By: #### CBC #### [facility] [address] [place] [address] Dr. Ashlie Killian #1.0 103/ulCritically high0.3-0.8The [facility] Comment on above:Performed By: #### CBC #### [facility] [address] [place] [address] Dr. Ashlie Palominoocytes/100 WBC (Bld)10.6 %Normal1.7-12.0[facility] Comment on above:Performed By: #### CBC #### [facility] [address] [place] [address] Dr. Ashlie Olsen #5.3 103/ulNormal1.4-6.5The [facility] ClinicComment on above:Performed By: #### CBC #### [facility] [address] [place] [address] Dr. Ashlie Steinutrophils/100 WBC (Bld)56.8 %Hyvdch38.0-75.0The [facility] ClinicComment on above:Performed By: #### CBC #### [facility] [address] [place] [address] Dr. Ashlie Lantigualet mean volume (Bld) [Entitic vol]12.5 fLNormal9.5-13.5The [facility] ClinicComment on above:Performed By: #### CBC #### [facility] [address] [place] [address] Dr. Ashlie HillsPLT109 103/ulCritically dzu698-746Swy [facility] ClinicComment on above:Performed By: #### CBC #### [facility] [address] [place] [address] Dr. Ashlie HillsRBC5.47 106/ulCritically high4.20-5.40The [facility] Comment on above:Performed By: #### CBC #### [facility] [address] [place] [address] Dr. Ashlie HillsWBC9.4 103/ulNormal4.0-11.0The [facility] ClinicComment on above: Performed By: #### CBC #### [facility] [address] [place] [address] Dr. Ashlie LlanosF 14(COMP METB)on [id number] [Mass/Vol]2.9 g/dL Critically low3.4-5.0The [facility] ClinicComment on above:Performed By: #### CBC #### [facility] [address] [place] [address] Dr. Ashlie HillsAlbumin/Globulin [Mass ratio]0.6 {ratio}NormalThe [facility] ClinicComment on above:Performed By: #### CBC #### [facility] [address] [place] [address] Dr. Ashlie Gonzalez [Catalytic activity/Vol]64 U/DFivbfi63-577Vkg [facility] ClinicComment on above:Performed By: #### CBC #### [facility] [address] [place] [address] Dr. Ashlie Chambers [Catalytic activity/Vol]16 U/NVurrsy54-98Dls [facility] ClinicComment on above:Performed By: #### CBC #### [facility] [address] [place] [address] Dr. Ashlie Arce gap [Moles/Vol]9.6 mmol/LNormalThe [facility] ClinicComment on above:Performed By: #### CBC #### [facility] [address] [place] [address] Dr. Ashlie Tiwari [Catalytic activity/Vol]16 U/CVveqdg47-39Lro [facility] ClinicComment on above:Performed By: #### CBC #### [facility] [address] [place] [address] Dr. Ashlie HillsBilirubin [Mass/Vol]0.5 mg/dLNormal0.2-1.0The [facility] Comment on above:Performed By: #### CBC #### [facility] [address] [place] [address] Dr. Ashlie HillsCalcium [Mass/Vol]8.7 mg/dLNormal8.5-10.1[facility] Comment on above:Performed By: #### CBC #### [facility] [address] [place] [address] Dr. Ashlie HillsChloride [Moles/Vol]103 mmol/QPbjzjh31-316Uzs [facility] Comment on above:Performed By: #### CBC #### [facility] [address] [place] [address] Dr. Ashlie HillsCO2 [Moles/Vol]30.7 mmol/VSjbctk05.0-32.0[facility] Comment on above:Performed By: #### CBC #### [facility] [address] [place] [address] Dr. Ashlie HillsCreatinine [Mass/Vol]0.96 mg/dLNormal0.55-1.02The [facility] ClinicComment on above:Performed By: #### CBC #### [facility] [address] [place] [address] Dr. Ashlie GrahamGFR-AF CANADIAN>60Normal>=60The [facility] ClinicComment on above:Performed By: #### CBC #### [facility] [address] [place] [address] Dr. Ashlie Delaney-NON AF CANADIAN>60Normal>=60The [facility] ClinicComment on above:Performed By: #### CBC #### [facility] [address] [place] [address] Dr. Ashlie HillsGlobulin (S) [Mass/Vol]4.7 g/dLNormalThe [facility] ClinicComment on above:Performed By: #### CBC #### [facility] [address] [place] [address] Dr. Ashlie HillsGlucose [Mass/Vol]170 mg/dLCritically txxt99-300Jgv [facility] ClinicComment on above:Performed By: #### CBC #### [facility] [address] [address] [address] Ashlie HillsPotassium [Moles/Vol]4.3 mmol/LNormal3.5-5.1The [facility] Comment on above:Performed By: #### CBC #### [facility] [address] [address] [address] Ashlie HillsProtein [Mass/Vol]7.6 g/dLNormal6.4-8.2[facility] Comment on above:Performed By: #### CBC #### [facility] [address] [address] [address] Ashlie HillsSodium [Moles/Vol]139 mmol/GYzjqxn819-816Pcy [facility] Comment on above:Performed By: #### CBC #### [facility] [address] [address] [address] Ashlie HillsUrea nitrogen [Mass/Vol]16.0 mg/dLNormal7.0-18.0The [facility] ClinicComment on above:Performed By: #### CBC #### [facility] [address] [address] [address] Ashlie Jones nitrogen/Creatinine [Mass ratio]16.7 mg/mgNormalThe [facility] ClinicComment on above:Performed By: #### CBC #### [facility] [address] [address] [address] Ashlie KirbyMPTOMATIC COVID-19 ANTIGENon [id number] StatementSEE BELOW NormalThe [facility] ClinicComment on above:Result Comment: This test has not [...] is revoked sooner.Performed By: #### CVDAGS #### [facility] [address] [place] [address] Dr. Ashlie Finney-CoV-2 (COVID-19) RNA MADDY+probe Ql (Unsp spec)NegativeNormal NEGATIVEThe [facility] ClinicComment on above:Performed By: #### CVDAGS #### [facility] [address] [place] [address] Dr. Ashlie Alvarado, [facility] SENSITIVITYon [id number] pg/mLNormal 4.0-51.3The [facility] ClinicComment on above:Result Comment: CUT-OFF POINTS HAVE BEEN ESTABLISHED BASED ON THE FOURTH UNIVERSAL DEFINITIONS OF MYOCARDIAL INFARCTION. THE UPPER REFERENCE LIMIT (URL) OF TROPONIN, DEFINED THE 99TH PERCENTILE OF cTnI DISTRIBUTION IN A REFERENCE POPULATION, HAS BEEN CONFIRMED THE DECISION THRESHOLD FOR UT DIAGNOSIS.Performed By: #### POCGLUC #### [facility] [address] [place] [address] Dr. Ashlie MarshallALBUMIN, RAND URon [id number] mg/dLCritically high <=30.0The [facility] ClinicComment on above:Performed By: #### CVDAGS #### [facility] [address] [place] [address] Dr. Ashlie Vaughn RANDOM W/MICROSCOPICon [id number] SEENNormalNONE SEENMetrohealth Main Campus Medical CenterComment on above:Performed By: #### CVDAGS #### [facility] [address] [place] [address] Dr. Ashlie HillsBilirubin Ql (U)NegativeNormalNEGATIVEThe [facility] Comment on above:Performed By: #### CVDAGS #### [facility] [address] [place] [address] Dr. Ashlie SchultzSEENAbnormalNONE SEENThe [facility] HospitalComment on above: Performed By: #### CVDAGS #### [facility] [address] [address] [address] Ashlie HillsClarity (U)CLEARNormalCLEARMetrohealth Main Campus Medical CenterCommymichigan medical center clare on above: Performed By: #### CVDAGS #### [facility] [address] [address] [address] Ashlie Roberts (U)YELLOWNormalYELLOWMetrohealth Main Campus Medical CenterComment on above: Performed By: #### CVDAGS #### [facility] [address] [address] [address] Ashlie HillsCrystals LM Nom (Urine sed)NONE SEENNormalNONE SEENMetrohealth Main Campus Medical CenterCommymichigan medical center clare on above:Performed By: #### CVDAGS #### [facility] [address] [place] [address] Dr. Dailey ChangEpithelial cells LM Ql (Urine sed)MODERATEAbnormalNONE SEEN /RARE The [facility] ClinicCommymichigan medical center clare on above:Performed By: #### CVDAGS #### [facility] [address] [place] [address] Dr. Ashlie HillsGlucose Ql (U)NegativeNormalNEGATIVEMetrohealth Main Campus Medical CenterCommymichigan medical center clare on above:Performed By: #### CVDAGS #### [facility] [address] [place] [address] Dr. Ashlie HillsHemoglobin Ql (U)TRACE-INTACTAbnormalNEGATIVEMetrohealth Main Campus Medical CenterCommymichigan medical center clare on above:Performed By: #### CVDAGS #### [facility] [address] [place] [address] Dr. Ashlie HillsKetones Ql (U)NegativeNormalNEGATIVEMetrohealth Main Campus Medical CenterCommymichigan medical center clare on above:Performed By: #### CVDAGS #### [facility] [address] [place] [address] Dr. Ashlie HillsLEUKOCYTESNegativeNormalNEGATIVEMetrohealth Main Campus Medical CenterCommymichigan medical center clare on above:Performed By: #### CVDAGS #### [facility] [address] [place] [address] Dr. Ashlie McphersonUSRODRIGUEZE SEENNormalNONE SEENMetrohealth Main Campus Medical CenterComment on above:Performed By: #### CVDAGS #### [facility] [address] [place] [address] Dr. Ashlie Soares Ql (U)NegativeNormalNEGATIVEThe [facility] ClinicComment on above:Performed By: #### CVDAGS #### [facility] [address] [place] [address] Dr. Ashlie HillspH (U)5.0 [pH]Normal5-9The [facility] ClinicComment on above: Performed By: #### CVDAGS #### [facility] [address] [place] [address] Dr. Ashlie PruettAxmsvJOG2-7Khloqr5-7Str [facility] ClinicComment on above:Performed By: #### CVDAGS #### [facility] [address] [place] [address] Dr. Ashlie HillsSPEC GRAVITY1.256Zzpaytle1.005-<=1.025The [facility] Comment on above:Performed By: #### CVDAGS #### [facility] [address] [place] [address] Dr. Ashlie Vaughn AITKHDC684 mg/dlAbnormalNEGATIVE/ TRACEThe [facility] Comment on above:Performed By: #### CVDAGS #### [facility] [address] [place] [address] Dr. Ashlie Metzbilkrystynagen Qn (U)0.2 {Little'U}/dLNormal0.2 - 1.0The [facility] ClinicComment on above:Performed By: #### CVDAGS #### [facility] [address] [place] [address] Dr. Ashlie HillsWBCNONE SEENNormalNONE SEENMetrohealth Main Campus Medical CenterComment on above: Performed By: #### CVDAGS #### [facility] [address] [place] [address] Dr. Ashlie Chinchilla AUTO DIFFon [id number] #0.0 103/ulNormal0.0-0.1The [facility] ClinicComment on above:Performed By: #### CBC #### [facility] [address] [place] [address] Dr. Ashlie HillsBasophils/100 WBC (Bld)0.3 %Normal0.2-2.0[facility] Comment on above:Performed By: #### CBC #### [facility] [address] [place] [address] Dr. Ashlie Mcintosh #0.4 103/ulNormal0.0-0.7The [facility] ClinicComment on above: Performed By: #### CBC #### [facility] [address] [place] [address] Dr. Ashlie Grahamosinophils/100 WBC (Bld)3.0 %Normal0.9-7.0[facility] Comment on above:Performed By: #### CBC #### [facility] [address] [place] [address] Dr. Ashlie Grahamrythrocyte distribution width (RBC) [Ratio]15.3 %Critically high 11.0-15.0[facility] CenterComment on above:Performed By: #### CBC #### [facility] [address] [place] [address] Dr. Ashlie HillsHematocrit (Bld) [Volume fraction]52.4 %Critically high36.0-48.0 The [facility] ClinicComment on above:Performed By: #### CBC #### [facility] [address] [place] [address] Dr. Ashlie HillsHemoglobin (Bld) [Mass/Vol]16.8 g/dLCritically high12.0-16.0[facility] CenterComment on above:Performed By: #### CBC #### [facility] [address] [place] [address] Dr. Ashlie Hunter #0.04 10e3/ulCritically high0.00-0.03The [facility] Comment on above:Performed By: #### CBC #### [facility] [address] [place] [address] Dr. Ashlie Hunter %0.3 %Normal0.0-0.5The [facility] ClinicComment on above: Performed By: #### CBC #### [facility] [address] [place] [address] Dr. Ashlie Swenson #4.5 103/ulCritically high1.2-3.8The [facility] Comment on above:Performed By: #### CBC #### [facility] [address] [place] [address] Dr. Ashlie Dsouzahocytes/100 WBC (Bld)33.2 %Xvbftn77.5-60.0The [facility] ClinicComment on above:Performed By: #### CBC #### [facility] [address] [place] [address] Dr. Ashlie GhoshUAL DIFF REQNONormalThe [facility] ClinicComment on above: Performed By: #### CBC #### [facility] [address] [place] [address] Dr. Ashlie Granger (RBC) [Entitic mass]28.0 jnIoepso37.7-34.0The [facility] ClinicComment on above:Performed By: #### CBC #### [facility] [address] [place] [address] Dr. Ashlie Mckeon (RBC) [Mass/Vol]32.1 g/fJEgnepq66.9-35.2The [facility] ClinicComment on above:Performed By: #### CBC #### [facility] [address] [place] [address] Dr. Ashlie Mckeon (RBC) [Entitic vol]87.3 nQNfdmaj84.0-99.0The [facility] ClinicComment on above:Performed By: #### CBC #### [facility] [address] [place] [address] Dr. Ashlie Killian #0.8 103/ulNormal0.3-0.8The [facility] ClinicComment on above:Performed By: #### CBC #### [facility] [address] [place] [address] Dr. Ashlie Palominoocytes/100 WBC (Bld)5.7 %Normal1.7-12.0[facility] Comment on above:Performed By: #### CBC #### [facility] [address] [place] [address] Dr. Ashlie Olsen #7.8 103/ulCritically high1.4-6.5ThMorrow County Hospital Comment on above:Performed By: #### CBC #### [facility] [address] [address] [address] Ashlie Steinutrophils/100 WBC (Bld)57.5 %Bobhyr19.0-75.0The [facility] ClinicComment on above:Performed By: #### CBC #### [facility] [address] [place] [address] Dr. Ashlie HillsPlatelet mean volume (Bld) [Entitic vol]12.0 fLNormal9.5-13.5The [facility] ClinicComment on above:Performed By: #### CBC #### [facility] [address] [place] [address] Dr. Ashlie HillsPLT152 103/twYyvnol598-930WfwMetrohealth Main Campus Medical CenterComment on above: Performed By: #### CBC #### [facility] [address] [place] [address] Dr. Ashlie HillsRBC6.00 106/ulCritically high4.20-5.40[facility] Comment on above:Performed By: #### CBC #### [facility] [address] [place] [address] Dr. Ashlie HillsWBC13.6 103/ulCritically high4.0-11.0[facility] CenterComment on above:Performed By: #### CBC #### [facility] [address] [place] [address] Dr. Ashlie HillsLIPID PROFILEon [id number]-HDL RATIO NORMSEE BELOWNoHarrison Community HospitalComment on above:Result Comment: 3.3 - 4.4 LOW RISK 4.4 - 7.1 AVERAGE RISK 7.1 - 11.0 MODERATE RISK >11.0 HIGH RISKPerformed By: #### CBC #### [facility] [address] [address] [address] Ashlie HillsCholesterol [Mass/Vol]139 mg/dLNormal<=200[facility] Comment on above:Performed By: #### CBC #### [facility] [address] [address] [address] Ashlie HillsCholesterol in HDL [Mass/Vol]35 mg/dLCritically equ41-76DyiMetrohealth Main Campus Medical CenterComment on above:Performed By: #### CBC #### [facility] [address] [address] [address] Ashlie HillsCholesterol in LDL [Mass/Vol]67.4 mg/dLBethesda North HospitalComment on above:Performed By: #### CBC #### [facility] [address] [place] [address] Dr. Ashlie Lopezesteroralia.total/Cholesterol in HDL [Mass ratio]4.0 {ratio} NormalMetrohealth Main Campus Medical CenterComment on above:Performed By: #### CBC #### [facility] [address] [address] [address] Ashlie Potts NORMAL> or = 60 mg/dl - LOW CARDIOVASCULAR RISK <40 mg/dl - HIGH CARDIOVASCULAR RISKBethesda North HospitalComment on above:Performed By: #### CBC #### [facility] [address] [address] [address] Ashlie HillsLDL CALC NORMALSEE BELOWBethesda North HospitalComment on above:Result Comment: <100 mg/dl OPTIMAL 100 - 129 mg/dl NEAR OR ABOVE OPTIMAL 130 - 159 mg/dl BORDERLINE HIGH 160 - 189 mg/dl HIGH >190 mg/dl VERY HIGH Performed By: #### CBC #### [facility] [address] [place] [address] Dr. Ashlie HillsTriglyceride [Mass/Vol]183 mg/dLCritically high<=150The [facility] ClinicComment on above:Performed By: #### CBC #### [facility] [address] [address] [address] Ashlie HillsVLDL CALC36.6 mg/dLNoHarrison Community HospitalComment on above: Performed By: #### CBC #### [facility] [address] [address] [address] Ashlie HillsMG MAMM SCREEN 3D ALEX CADon [id number] MAMM SCREEN 3D ALEX CAD Patient: MITZI MACIAS Exam Date: 11/22/2022 : 1970 Gender:F Ordering : SAYDA MCKAYLA [employer] Admission #: [id number] Family : Order #: [id number] CLICK HERE TO VIEW EXAM RADIOLOGY REPORT [...] unknown cancer at age 75. LOCATION: [facility] BREAST COMPOSITION: Almost entirely fatty. FINDINGS: DIAGNOSTIC [...] by: Patricia Veloz M.D. on 11/22/2022 at 12:09NoHarrison Community HospitalPROF 14(COMP METB)on [id number] [Mass/Vol]3.0 g/dLCritically low 3.4-5.0The [facility] ClinicComment on above:Performed By: #### CBC #### [facility] [address] [address] [address] Ashlie HillsAlbumin/Globulin [Mass ratio]0.6 {ratio}NormalThe [facility] ClinicComment on above:Performed By: #### CBC #### [facility] [address] [address] [address] Ashlie MoralesP [Catalytic activity/Vol]68 U/IGaoxxi25-438Epd [facility] ClinicComment on above:Performed By: #### CBC #### [facility] [address] [address] [address] Ashlie MoralesT [Catalytic activity/Vol]14 U/EZrdwyf15-93Tah [facility] ClinicComment on above:Performed By: #### CBC #### [facility] [address] [place] [address] Dr. Ashlie Hassanon gap [Moles/Vol]12.1 mmol/LNormalThe [facility] Comment on above:Performed By: #### CBC #### [facility] [address] [place] [address] Dr. Ashlie HillsAST [Catalytic activity/Vol]9 U/LCritically psv40-12Pui [facility] ClinicComment on above:Performed By: #### CBC #### [facility] [address] [place] [address] Dr. Ashlie HillsBilirubin [Mass/Vol]0.4 mg/dLNormal0.2-1.0The [facility] Comment on above:Performed By: #### CBC #### [facility] [address] [place] [address] Dr. Ashlie HillsCalcium [Mass/Vol]9.0 mg/dLNormal8.5-10.1The [facility] Comment on above:Performed By: #### CBC #### [facility] [address] [place] [address] Dr. Ashlie HillsChloride [Moles/Vol]105 mmol/DDvmdhk69-310Nwh [facility] Comment on above:Performed By: #### CBC #### [facility] [address] [address] [address] Ashlie HillsCO2 [Moles/Vol]30.7 mmol/NHbbknz20.0-32.0The [facility] Comment on above:Performed By: #### CBC #### [facility] [address] [place] [address] Dr. Ashlie HillsCreatinine [Mass/Vol]0.77 mg/dLNormal0.55-1.02The [facility] ClinicComment on above:Performed By: #### CBC #### [facility] [address] [place] [address] Dr. Dailey ChangEGFR-AF CANADIAN>60Normal>=60The [facility] ClinicComment on above:Performed By: #### CBC #### [facility] [address] [place] [address] Dr. Ashlie GrahamGFR-NON AF CANADIAN>60Normal>=60The [facility] ClinicComment on above:Performed By: #### CBC #### [facility] [address] [place] [address] Dr. Ashlie HillsGlobulin (S) [Mass/Vol]4.8 g/dLNormalThe [facility] ClinicComment on above:Performed By: #### CBC #### [facility] [address] [place] [address] Dr. Ashlie HillsGlucose [Mass/Vol]162 mg/dLCritically blsn46-961Rmv [facility] ClinicComment on above:Performed By: #### CBC #### [facility] [address] [place] [address] Dr. Ashlie HillsPotassium [Moles/Vol]3.8 mmol/LNormal3.5-5.1The [facility] Comment on above:Performed By: #### CBC #### [facility] [address] [place] [address] Dr. Ashlie HillsProtein [Mass/Vol]7.8 g/dLNormal6.4-8.2The [facility] Comment on above:Performed By: #### CBC #### [facility] [address] [place] [address] Dr. Ashlie Jimenezdium [Moles/Vol]144 mmol/IJocbqy673-175Ztu [facility] Comment on above:Performed By: #### CBC #### [facility] [address] [place] [address] Dr. Ashlie Jones nitrogen [Mass/Vol]24.0 mg/dLCritically high7.0-18.0The [facility] ClinicComment on above:Performed By: #### CBC #### [facility] [address] [place] [address] Dr. Ashlie Jones nitrogen/Creatinine [Mass ratio]31.2 mg/mgNormalThe [facility] ClinicComment on above:Performed By: #### CBC #### [facility] [address] [place] [address] Dr. Ashlie Chinchilla AUTO DIFFon [id number] #0.1 103/ulNormal0.0-0.1The [facility] ClinicComment on above:Performed By: #### CBC #### [facility] [address] [place] [address] Dr. Ashlie HillsBasophils/100 WBC (Bld)0.6 %Normal0.2-2.0[facility] Comment on above:Performed By: #### CBC #### [facility] [address] [place] [address] Dr. Ashlie Mcintosh #0.3 103/ulNormal0.0-0.7The [facility] ClinicComment on above: Performed By: #### CBC #### [facility] [address] [place] [address] Dr. Ashlie Grahamosinophils/100 WBC (Bld)2.1 %Normal0.9-7.0The [facility] Comment on above:Performed By: #### CBC #### [facility] [address] [place] [address] Dr. Ashlie Grahamrythrocyte distribution width (RBC) [Ratio]15.9 %Critically high 11.0-15.0The [facility] ClinicComment on above:Performed By: #### CBC #### [facility] [address] [address] [address] Ashlie HillsHematocrit (Bld) [Volume fraction]51.8 %Critically high36.0-48.0 The [facility] ClinicComment on above:Performed By: #### CBC #### [facility] [address] [place] [address] Dr. Ashlie HillsHemoglobin (Bld) [Mass/Vol]16.6 g/dLCritically high12.0-16.0The [facility] Mills HospitalComment on above:Performed By: #### CBC #### [facility] [address] [place] [address] Dr. Ashlie HillsIG #0.03 10e3/ulNormal0.00-0.03The [facility] ClinicComment on above:Performed By: #### CBC #### [facility] [address] [place] [address] Dr. Ashlie Hunter %0.2 %Normal0.0-0.5The [facility] ClinicComment on above: Performed By: #### CBC #### [facility] [address] [place] [address] Dr. Ashlie Swenson #3.9 103/ulCritically high1.2-3.8The [facility] Comment on above:Performed By: #### CBC #### [facility] [address] [place] [address] Dr. Ashlie Jademphocytes/100 WBC (Bld)31.7 %Rdraex26.5-60.0The [facility] ClinicComment on above:Performed By: #### CBC #### [facility] [address] [place] [address] Dr. Ashlie GhoshUAL DIFF REQNONormalThe [facility] ClinicComment on above: Performed By: #### CBC #### [facility] [address] [place] [address] Dr. Ashlie Granger (RBC) [Entitic mass]27.9 doQpmmjf13.7-34.0The [facility] ClinicComment on above:Performed By: #### CBC #### [facility] [address] [address] [address] Ashlie Mckeon (RBC) [Mass/Vol]32.0 g/cAMrxths24.9-35.2The [facility] ClinicComment on above:Performed By: #### CBC #### [facility] [address] [place] [address] Dr. Ashlie MckeonV (RBC) [Entitic vol]87.1 rUVaeiam82.0-99.0The [facility] HospitalComment on above:Performed By: #### CBC #### [facility] [address] [place] [address] Dr. Ashlie Killian #0.7 103/ulNormal0.3-0.8The [facility] ClinicComment on above:Performed By: #### CBC #### [facility] [address] [place] [address] Dr. Ashlie Palominoocytes/100 WBC (Bld)5.8 %Normal1.7-12.0[facility] Comment on above:Performed By: #### CBC #### [facility] [address] [place] [address] Dr. Ashlie Olsen #7.3 103/ulCritically high1.4-6.5The [facility] Comment on above:Performed By: #### CBC #### [facility] [address] [place] [address] Dr. Ashlie Steinutrophils/100 WBC (Bld)59.6 %Kgbjiq59.0-75.0The [facility] ClinicComment on above:Performed By: #### CBC #### [facility] [address] [place] [address] Dr. Ashlie Lantigualet mean volume (Bld) [Entitic vol]11.7 fLNormal9.5-13.5The [facility] ClinicComment on above:Performed By: #### CBC #### [facility] [address] [place] [address] Dr. Ashlie HillsPLT117 103/ulCritically udm017-056Urd [facility] ClinicComment on above:Performed By: #### CBC #### [facility] [address], [place] [address] Dr. Ashlie HillsRBC5.95 106/ulCritically high4.20-5.40The [facility] Comment on above:Performed By: #### CBC #### [facility] [address], [place] [address] Dr. Ashlie HillsWBC12.3 103/ulCritically high4.0-11.0The [facility] ClinicComment on above:Performed By: #### CBC #### [facility] [address], [place] [address] Dr. Ashlie HillsCT ABD/PELV W CONon [id number] ABD/PELV W CONEXAM: CT ABD/PELV W CON [...] Electronically authenticated by: RICCO PICKARD Date: 2022-10-05 13:13NoFirelands [facility] URINE PROFILEon [id number] Ql (U)NegativeNormal NEGATIVEThe [facility] ClinicComment on above:Performed By: #### POCGLUC #### [facility] [address] [address] [address] Ashlie Leungarity (U)CLEARNormalCLEARMetrohealth Main Campus Medical CenterComment on above: Performed By: #### POCGLUC #### [facility] [address] [address] [address] Ashlie Prescottlor (U)YELLOWNormalYELLOWMetrohealth Main Campus Medical CenterComment on above: Performed By: #### POCGLUC #### [facility] [address] [address] [address] Ashlie Clayton micrscopic examination will be performed if indicated. NormalThe [facility] ClinicComment on above:Performed By: #### POCGLUC #### [facility] [address] [address] [address] Ashlie Rutledgeose Ql (U)NegativeNormalNEGATIVEMetrohealth Main Campus Medical CenterComment on above:Performed By: #### POCGLUC #### [facility] [address] [address] [address] Ashlie HillsHemoglobin Ql (U)NegativeNormalNEGATIVEUniversity Hospitals Conneaut Medical Center on above:Performed By: #### POCGLUC #### [facility] [address] [address] [address] Ashlie HillsKetones Ql (U)NegativeNormalNEGATIVEMetrohealth Main Campus Medical CenterComment on above:Performed By: #### POCGLUC #### [facility] [address] [address] [address] Ashlie HillsLEUKOCYTESNegativeNormalNEGATIVEMetrohealth Main Campus Medical CenterComment on above:Performed By: #### POCGLUC #### [facility] [address] [address] [address] Ashlie HillsNitrite Ql (U)NegativeNormalNEGATIVEMetrohealth Main Campus Medical CenterComment on above:Performed By: #### POCGLUC #### [facility] [address] [address] [address] Ashlie HillspH (U)6.0 [pH]Normal5-9[facility] Medical CenterComment on above: Performed By: #### POCGLUC #### [facility] [address] [address] [address] Ashlie HillsProtein (U) [Mass/Vol]100 mg/dLAbnormalNEGATIVE/ TRACEThe [facility] ClinicComment on above:Performed By: #### POCGLUC #### [facility] [address] [place] [address] Dr. Ashlie HillsSPEC GRAVITY1.049Bsrurq9.005-<=1.025The [facility] ClinicComment on above:Performed By: #### POCGLUC #### [facility] [address] [place] [address] Dr. Ashlie Sullivan MICRO INDINDICATEDNormalThMorrow County HospitalComment on above: Performed By: #### POCGLUC #### [facility] [address] [place] [address] Dr. Ashlie HillsUrobilinogen Qn (U)1.0 {Little'U}/dLNormal0.2 - 1.0The [facility] ClinicComment on above:Performed By: #### POCGLUC #### [facility] [address] [place] [address] Dr. Ashlie HillsLIPASEon 80-28-4509Kcpjjc [Catalytic activity/Vol]1771.0 U/L Critically high73.0-393.0The [facility] ClinicComment on above:Performed By: #### CBC #### [facility] [address] [place] [address] Dr. Ashlie CrossG HCG QUALon 31-13-8730ZRKYYHAPZ, QUALNegativeNormalNEGATIVE The [facility] ClinicComment on above:Performed By: #### POCGLUC #### [facility] [address] [place] [address] Dr. Ashlie HillsPROF 14(COMP METB)on 18-09-7926Hoqkuio [Mass/Vol]3.2 g/dL Critically low3.4-5.0The [facility] ClinicComment on above:Performed By: #### CBC #### [facility] [address] [place] [address] Dr. Ashlie HillsAlbumin/Globulin [Mass ratio]0.7 {ratio}NormalMetrohealth Main Campus Medical CenterComment on above:Performed By: #### CBC #### [facility] [address] [address] [address] Ashlie Gonzalez [Catalytic activity/Vol]70 U/NYswuea35-589Ucv [facility] ClinicComment on above:Performed By: #### CBC #### [facility] [address] [address] [address] Ashlie Chambers [Catalytic activity/Vol]11 U/LCritically uma80-89App [facility] ClinicComment on above:Performed By: #### CBC #### [facility] [address] [address] [address] Ashlie Hassanon gap [Moles/Vol]10.3 mmol/LNormalMetrohealth Main [facility] Center Comment on above:Performed By: #### CBC #### [facility] [address] [address] [address] Ashlie HillsAST [Catalytic activity/Vol]11 U/LCritically cht88-54Ccg [facility] ClinicComment on above:Performed By: #### CBC #### [facility] [address] [address] [address] Ashlie HillsBilirubin [Mass/Vol]0.9 mg/dLNormal0.2-1.0The [facility] Comment on above:Performed By: #### CBC #### [facility] [address] [address] [address] Ashlie HillsCalcium [Mass/Vol]9.3 mg/dLNormal8.5-10.1[facility] Comment on above:Performed By: #### CBC #### [facility] [address] [address] [address] Ashlie HillsChloride [Moles/Vol]105 mmol/JVcjkbb81-235Rhz [facility] Comment on above:Performed By: #### CBC #### [facility] [address] [address] [address] Ashlie HillsCO2 [Moles/Vol]30.6 mmol/DQgbcqc40.0-32.0The [facility] Comment on above:Performed By: #### CBC #### [facility] [address] [address] [address] Ashlie HillsCreatinine [Mass/Vol]0.62 mg/dLNormal0.55-1.02The [facility] ClinicComment on above:Performed By: #### CBC #### [facility] [address] [address] [address] Ashlie GrahamGFR-AF CANADIAN>60Normal>=60The [facility] ClinicComment on above:Performed By: #### CBC #### [facility] [address] [address] [address] Ashlie GrahamGFR-NON AF CANADIAN>60Normal>=60The [facility] ClinicComment on above:Performed By: #### CBC #### [facility] [address] [address] [address] Ashlie HillsGlobulin (S) [Mass/Vol]4.6 g/dLNormalThe [facility] ClinicComment on above:Performed By: #### CBC #### [facility] [address] [address] [address] Ashlie HillsGlucose [Mass/Vol]85 mg/sHNkarda42-343JfyMetrohealth Main Campus Medical Center Comment on above:Performed By: #### CBC #### [facility] [address] [address] [address] Ashlie HillsPotassium [Moles/Vol]3.9 mmol/LNormal3.5-5.1The [facility] Comment on above:Performed By: #### CBC #### [facility] [address] [address] [address] Ashlie HillsProtein [Mass/Vol]7.8 g/dLNormal6.4-8.2The [facility] Comment on above:Performed By: #### CBC #### [facility] [address] [address] [address] Ashlie HillsSodium [Moles/Vol]142 mmol/PNqgoqv168-158IkjMetrohealth Main Campus Medical Center Comment on above:Performed By: #### CBC #### [facility] [address] [address] [address] Ashlie Jones nitrogen [Mass/Vol]12.0 mg/dLNormal7.0-18.0The [facility] on above:Performed By: #### CBC #### [facility] [address] [address] [address] Ashlie Jones nitrogen/Creatinine [Mass ratio]19.4 mg/mgNoHarrison Community HospitalComment on above:Performed By: #### CBC #### [facility] [address] [address] [address] Ashlie Recinos MICROSCOPIC ONLYon 85-96-2020SCRJAGQFBDYLCOxalsqqwCNNY SEEN [facility] CenterCommymichigan medical center clare on above:Performed By: #### POCGLUC #### [facility] [address] [address] [address] Ashlie Cortez identified Cx Nom (U)NOT INDICATEDNoFort Hamilton Hospital on above:Performed By: #### POCGLUC #### [facility] [address] [address] [address] Ashlie HillsCASTNONE SEENNormalNONE SEENDelaware County Hospital on above:Performed By: #### POCGLUC #### [facility] [address] [address] [address] Ashlie Boyerystals LM Nom (Urine sed)NONE SEENNormalNONE SEENDelaware County Hospital on above:Performed By: #### POCGLUC #### [facility] [address] [address] [address] Ashlie Camarathelial cells LM Ql (Urine sed)MODERATEAbnormalNONE SEEN /RARE [facility] on above:Performed By: #### POCGLUC #### [facility] [address] [address] [address] Ashlie SuarezCOUSNONE SEENNocape fear valley hoke hospitalNONE SEENDelaware County Hospital on above:Performed By: #### POCGLUC #### [facility] [address] [address] [address] Ashlie HillsWxzsvSGJ8-5Sjtksp7-7NbwDelaware County Hospital on above:Performed By: #### POCGLUC #### [facility] [address] [place] [address] Dr. Ashlie HillsWBC0-2AbnormalNONE SEENDelaware County Hospital on above: Performed By: #### POCGLUC #### [facility] [address] [place] [address] Dr. Ashlie HillsCovid-19 PCR ([facility]DS[facility])on [id number]-CoV-2 (COVID-19) RNA MADDY+probe Ql (Unsp spec)DetectedAbnormalNOT DETECTEDThe [facility] on above:Result Comment: This test is not yet approved or cleared by the [place] FDA. When there are no FDA-approved or cleared tests available, and other criteria are met, FDA can make tests available under an emergency access mechanism called an Emergency Use Authorization (EUA). The EUA for this test is supported by the [place] of Health and Human Service's declaration that [...] longer be used).Performed By: #### CVDAGS #### [facility] [address] [place] [address] Dr. Ashlie HillsINFLUENZA A AND B AGon [id number] [facility] on above:Result Comment: Negative for Flu A protein angiten. Infection due to Flu A cannot be ruled out. FluA angiten in the sample may be below the detection limit of the test.Performed By: #### INFLUAB #### [facility] [address] [place] [address] Dr. Ashlie HillsINFLUBNEGHSEE [facility] on above: Result Comment: Negative for Flu B protein antigen. Infection due to Flu B cannot be ruled out. FluB antigen in the sample may be below the detection limit of the test.Performed By: #### INFLUAB #### [facility] [address] [place] [address] Dr. Ashlie Centeno AGNegativeNormalNEGATIVE SEE COMMENTThe [facility] ClinicComment on above:Performed By: #### INFLUAB #### [facility] [address] [address] [address] Ashlie Shaffer AGNegativeNormalNEGATIVE SEE COMMENTThe [facility] ClinicComment on above:Performed By: #### INFLUAB #### [facility] [address] [place] [address] Dr. Ashlie HillsCT ABD/PELV W CONon [id number] ABD/PELV W CONINDICATION: Disorder of adrenal gland [...] dating back to at least 10/21/2018, unchanged. https://www.ncbi.nlm.nih.gov/pmc/articles/KNK5456972/ Electronically authenticated by: COLLIN HUERTAS Date: 2022-07-27 14:56NormRegency Hospital CompanyCREATININEon 64-28-6175Nioliwfgoc [Mass/Vol]0.81 mg/dLNormal 0.55-1.02The [facility] ClinicComment on above:Performed By: #### CBC #### [facility] [address] [place] [address] Dr. Yilan ChangEGFR-AF CANADIAN>60Normal>=60The [facility] ClinicComment on above:Performed By: #### CBC #### [facility] [address], [place] [address] Dr. Dailey ChangEGFR-NON AF CANADIAN>60Normal>=60The [facility] ClinicComment on above:Performed By: #### CBC #### [facility] [address], [place] [address] Dr. Dailey ChangCT LOW EXT W CONT LTon [id number] LOW EXT W CONT LTEXAMINATION: CT LOW [...] Electronically authenticated by: PATRICIA VELOZ Date: 2022-07-18 14:[address] [place], [place] [address]XR KNEE LT 1_2 Von [id number] KNEE LT 1_2 VEXAM: XR KNEE LT [...] Electronically authenticated by: HATTIE BAUTISTA Date: 2022-07-18 12:00[facility] HospitalCovid-19 PCR (CVDTB)on 30-31-5932XMYW-CoV-2 (COVID-19) RNA MADDY+probe Ql (Unsp spec)Not detectedNormalNOT DETECTEDThe [facility] Comment on above:Result Comment: This test is not yet approved or cleared by the [place] FDA. When there are no FDA-approved or cleared tests available, and other criteria are met, FDA can make tests available under an emergency access mechanism called an Emergency Use Authorization (EUA). The EUA for this test is supported by the [place] Worker of Health and Human Service's (HHS's) [...] consistent with SARS-CoV-2.Performed By: #### CBC #### [facility] [address] [place] [address] Dr. Ashlie MonteroNZA A AND B AGon [id number] HospitalComment on above:Result Comment: Negative for Flu A protein angiten. Infection due to Flu A cannot be ruled out. FluA angiten in the sample may be below the detection limit of the test.Performed By: #### CBC #### [facility] [address] [place] [address] Dr. Ashlie HillsINFLUBNEGProtestant HospitalCommymichigan medical [facility] on above: Result Comment: Negative for Flu B protein antigen. Infection due to Flu B cannot be ruled out. FluB antigen in the sample may be below the detection limit of the test.Performed By: #### CBC #### [facility] [address] [place] [address] Dr. Ashlie Centeno AGNegativeNormalNEGATIVE SEE COMMENTThe [facility] on above:Performed By: #### CBC #### [facility] [address] [place] [address] Dr. Ashlie Shaffer AGNegativeNormalNEGATIVE SEE COMMENTThe [facility] on above:Performed By: #### CBC #### [facility] [address] [place] [address] Dr. Ashlie HillsPOINT OF CARE GLUCOSEon [id number] [Mass/Vol]108 mg/dL Critically iful76-864Uka [facility] ClinicCommymichigan [facility] on above:Performed By: #### CBC #### [facility] [address] [place] [address] Dr. Ashlie HillsANA by IFAon [id number] Antibodies, IFANegativeNormal The [facility] ClinicCommymichigan [facility] on above:Result Comment: Negative <1:80 Borderline 1:80 Positive >1:80 ICAP nomenclature: AC-0 For more information about Hep-2 cell patterns use ANApatterns.org, the official website for the International Consensus on Antinuclear Antibody (RAGHU) Patterns (ICAP).Performed By: #### ANAIFA #### [facility] [address] [place] [address] Dr. Ashlie HillsIMMUNOFIXATION (TREVON), URINEon [id number] Interpretation:U CommentNormalThe [facility] on above:Result Comment: No monoclonality detected.Performed By: #### CBC #### [facility] [address] [place] [address] Dr. Ashlie HillsIMMUNOFIXATION(TREVON),PROTEIN ELEC(PE),FREon [id number] [Mass/Vol]3.0 g/dLNormal2.9-4.4[facility] on above:Performed By: #### INFLUAB #### [facility] [address] [place] [address] Dr. Ashlie HillsAlbumin/Globulin [Mass ratio]0.8 {ratio}Normal0.7-1.7The [facility] ClinicComment on above:Performed By: #### INFLUAB #### [facility] [address] [place] [address] Dr. Ashlie HillsRebqbJzypd-0-Sjfhltwl4.3 g/dLNormal0.0-0.4The [facility] ClinicComment on above:Performed By: #### INFLUAB #### [facility] [address] [place] [address] Dr. Aslhie HillsQndjsHvydg-5-Zfcirfmf2.0 g/dLNormal0.4-1.0The [facility] ClinicComment on above:Performed By: #### INFLUAB #### [facility] [address] [place] [address] Dr. Ashlie HillsBeta Globulin1.8 g/dLCritically high0.7-1.3TEast [facility] Comment on above:Performed By: #### INFLUAB #### [facility] [address] [place] [address] Dr. Ashlie Skelton Zinc Lt Chains,S45.2 mg/LCritically high3.3-19.4The [facility] ClinicComment on above:Performed By: #### INFLUAB #### [facility] [address] [place] [address] Dr. Ashlie Skelton Lambda Lt Chains,S40.3 mg/LCritically high5.7-26.3The [facility] ClinicComment on above:Performed By: #### INFLUAB #### [facility] [address] [place] [address] Dr. Ashlie HillsGamma Globulin0.8 g/dLNormal0.4-1.8The [facility] ClinicComment on above:Performed By: #### INFLUAB #### [facility] [address] [place] [address] Dr. Ashlie HillsGlobulin (S) [Mass/Vol]3.9 g/dLNormal2.2-3.9The [facility] Comment on above:Performed By: #### INFLUAB #### [facility] [address] [place] [address] Dr. Ashlie HillsImmunofixation Result, SerumCommentNoHarrison Community Hospital Comment on above:Result Comment: No monoclonality detected.Performed By: #### INFLUAB #### [facility] [address] [place] [address] Dr. Ashlie HillsImmunoglobulin A, Qn, Vxprw472 mg/dLCritically csub75-501Qys [facility] ClinicComment on above:Performed By: #### INFLUAB #### [facility] [address] [place] [address] Dr. Ashlie HillsImmunoglobulin G, Qn, Tyxzg171 mg/zVRerulf312-9133Kwg [facility] ClinicCommymichigan medical center [facility] on above:Performed By: #### INFLUAB #### [facility] [address] [place] [address] Dr. Ashlie HillsImmunoglobulin M, Qn, Serum39 mg/nTKspywo96-574Fgh [facility] ClinicComment on above:Performed By: #### INFLUAB #### [facility] [address] [place] [address] Dr. Ashlie HillsKappa/Lambda Ratio, S1.58Gjelsd6.26-1.65[facility] Comment on above:Performed By: #### INFLUAB #### [facility] [address] [place] [address] Dr. Ashlie HillsM-SpikeNot ObservedNormalNot ObservedThe [facility] ClinicComment on above:Performed By: #### INFLUAB #### [facility] [address] [place] [address] Dr. Ashlie Bradford.NormalThe [facility] ClinicComment on above:Performed By: #### INFLUAB #### [facility] [address] [place] [address] Dr. Ashlie Fletcher note:CommentParkwood Hospital on above: Result Comment: Protein electrophoresis scan will follow via computer, mail, or can machine operator delivery.Performed By: #### INFLUAB #### [facility] [address] [place] [address] Dr. Ashlie HillsProtein [Mass/Vol]6.9 g/dLNormal6.0-8.5The [facility] Comment on above:Performed By: #### INFLUAB #### [facility] [address] [place] [address] Dr. Ashlie HillsC-PEPTIDE, SERUMon [id number]-Peptide, Serum3.1 ng/mLNormal 1.1-4.4The [facility] ClinicComment on above:Result Comment: C-Peptide reference interval is for fasting patients.Performed By: #### CPEPT #### [facility] [address] [place] [address] Dr. Ashlie Sandoval B SURFACE ANTIGEN SCREENon 30-16-5531CLfOj ScreenNegative NormalNegativeThe [facility] ClinicComment on above:Performed By: #### CBC #### [facility] [address] [place] [address] Dr. Ashlie ReavesPATITIS C VIRUS AB W/ REFLEX QUANTon [id number] AB<0.1Normal 0.0-0.9The [facility] ClinicComment on above:Performed By: #### INFLUAB #### [facility] [address] [place] [address] Dr. Ashlie HillsInterpretation:CommentNormalThMorrow County HospitalComment on above:Result Comment: Negative Not infected with HCV, unless recent infection is suspected or other evidence exists to indicate HCV infection.Performed By: #### INFLUAB #### [facility] [address] [place] [address] Dr. Ashlie HillsMICROALBUMIN/ CREATININE RATIOon 61-49-8592Udpekgv, Qaoxs648.4 ug/mLNormalNot Estab.The [facility] ClinicComment on above:Performed By: #### CBC #### [facility] [address] [place] [address] Dr. Ashlie HillsAlbumin/ Creatinine Ozwnc822 mg/g creatCritically high0-29The [facility] ClinicComment on above:Result Comment: Normal: 0 - 29 Moderately increased: 30 - 300 Severely increased: >300Performed By: #### CBC #### [facility] [address] [address] [address] Ashlie HillsCreatinine, Indwn323.9 mg/dLNormalNot Estab.[facility] Comment on above:Performed By: #### CBC #### [facility] [address] [address] [address] Ashlie Jerome D 25-OH LABCORPon 64-12-4678Ppfjxhf D, 25-Hydroxy<4.0 Critically low30.0-100.0The [facility] ClinicComment on above:Result Comment: Vitamin D deficiency has been defined by the [place] of [employer] and an Endocrine Society practice guideline as a level of serum 25-OH vitamin D less than 20 ng/mL (1,2). The Endocrine Society went on to further define vitamin D insufficiency as a level between 21 and 29 ng/mL (2). 1. IOM ([place] of Medicine). 2010. Dietary reference intakes for calcium and D. [place]: The National Academies Press. 2. Lynda MF, Keely [place], Leandra LOPEZ, et al. Evaluation, treatment, and prevention of vitamin D deficiency: an Endocrine Society clinical practice guideline. JCEM. 2010; 96(7):1911-30.Performed By: #### CBC #### [facility] [address] [address] [address] Ashlie HillsGLYCOHEMOGLOBIN A1Con [id number] RECOMMENDATIONSEE BELOWNormal The [facility] ClinicComment on above:Result Comment: ADA RECOMMENDED LIMIT 4.0 - 6.0 ADA THERAPEUTIC TARGET < 7.0 ACTION SUGGESTED > 7.0Performed By: #### CVDAGS #### [facility] [address] [address] [address] Ashlie HillsGlucose [Mass/Vol]295 mg/dLNormalThe [facility] ClinicComment on above:Performed By: #### CVDAGS #### [facility] [address] [address] [address] Ashlie HillsHbA1c (Bld) [Mass fraction]11.9 %Critically high4.5-6.2The [facility] ClinicComment on above:Performed By: #### CVDAGS #### [facility] [address] [place] [address] Dr. Ashlie HillsHEMOGRAM AND PLATELon 45-67-0817Uhsndsogps (Bld) [Volume fraction]56.3 %Critically high36.0-48.0The [facility] ClinicComment on above: Performed By: #### CVDAGS #### [facility] [address] [place] [address] Dr. Ashlie HillsHemoglobin (Bld) [Mass/Vol]18.0 g/dLCritically high12.0-16.0The [facility] ClinicComment on above:Performed By: #### CVDAGS #### [facility] [address] [place] [address] Dr. Ashlei MckeonH (RBC) [Entitic mass]29.5 fuOxonyq89.7-34.0The [facility] ClinicComment on above:Performed By: #### CVDAGS #### [facility] [address] [place] [address] Dr. Ashlie MckeonHC (RBC) [Mass/Vol]32.0 g/tLHcspxx43.9-35.2The [facility] ClinicComment on above:Performed By: #### CVDAGS #### [facility] [address] [place] [address] Dr. Ashlie MckeonV (RBC) [Entitic vol]92.1 nIUnwvnv91.0-99.0The [facility] ClinicComment on above:Performed By: #### CVDAGS #### [facility] [address] [place] [address] Dr. Ashlie HillsPLT123 103/ulCritically emo958-580Lqe [facility] ClinicComment on above:Performed By: #### CVDAGS #### [facility] [address] [place] [address] Dr. Ashlie HillsRBC6.11 106/ulCritically high4.20-5.40The [facility] Comment on above:Performed By: #### CVDAGS #### [facility] [address] [place] [address] Dr. Ashlie HillsWBC16.4 103/ulCritically high4.0-11.0The [facility] ClinicComment on above:Performed By: #### CVDAGS #### [facility] [address] [place] [address] Dr. Ashlie OmerID PROFILEon 01-99-8926OAHK-HDL RATIO NORMSEE BELOWBethesda North HospitalComment on above:Result Comment: 3.3 - 4.4 LOW RISK 4.4 - 7.1 AVERAGE RISK 7.1 - 11.0 MODERATE RISK >11.0 HIGH RISKPerformed By: #### CVDAGS #### [facility] [address] [place] [address] Dr. Ashlie Lopezesterol [Mass/Vol]159 mg/dLNormal<=200The [facility] Comment on above:Performed By: #### CVDAGS #### [facility] [address] [place] [address] Dr. Ashlie HillsCholesterol in HDL [Mass/Vol]40 mg/fABlbnxf61-10Lgi [facility] ClinicComment on above:Performed By: #### CVDAGS #### [facility] [address] [place] [address] Dr. Ashlie HillsCholesterol in LDL [Mass/Vol]81.8 mg/dLBethesda North HospitalComment on above:Performed By: #### CVDAGS #### [facility] [address] [place] [address] Dr. Ashlie Villa.total/Cholesterol in HDL [Mass ratio]4.0 {ratio} NormalThe [facility] ClinicComment on above:Performed By: #### CVDAGS #### [facility] [address] [place] [address] Dr. Ashlie Potts NORMAL> or = 60 mg/dl - LOW CARDIOVASCULAR RISK <40 mg/dl - HIGH CARDIOVASCULAR RISKBethesda North HospitalComment on above:Performed By: #### CVDAGS #### [facility] [address] [place] [address] Dr. Ashlie Desai CALC NORMALSEE BELOWBethesda North HospitalComment on above:Result Comment: <100 mg/dl OPTIMAL 100 - 129 mg/dl NEAR OR ABOVE OPTIMAL 130 - 159 mg/dl BORDERLINE HIGH 160 - 189 mg/dl HIGH >190 mg/dl VERY HIGH Performed By: #### CVDAGS #### [facility] [address] [place] [address] Dr. Ashlie HillsTriglyceride [Mass/Vol]186 mg/dLCritically high<=150The [facility] ClinicComment on above:Performed By: #### CVDAGS #### [facility] [address] [address] [address] Ashlie HillsVLDL CALC37.2 mg/dLBethesda North HospitalComment on above: Performed By: #### CVDAGS #### [facility] [address] [place] [address] Dr. Ashlie HillsRENCHAUNCEY FUNCTION PANELon 63-81-9832Xxtaplc [Mass/Vol]3.1 g/dL Critically low3.4-5.0[facility] CenterComment on above:Performed By: #### CBC #### [facility] [address] [place] [address] Dr. Ashlie HillsCalcium [Mass/Vol]9.2 mg/dLNormal8.5-10.1[facility] Comment on above:Performed By: #### CBC #### [facility] [address] [place] [address] Dr. Ashlie HillsChloride [Moles/Vol]102 mmol/EItxjcm01-421Tzf [facility] Comment on above:Performed By: #### CBC #### [facility] [address] [address] [address] Ashlie HillsCO2 [Moles/Vol]31.9 mmol/KLzwppq97.0-32.0The [facility] Comment on above:Performed By: #### CBC #### [facility] [address] [place] [address] Dr. Ashlie HillsCreatinine [Mass/Vol]0.68 mg/dLNormal0.55-1.02[facility] CenterComment on above:Performed By: #### CBC #### [facility] [address] [address] [address] Ashlie GrahamGFR-AF CANADIAN>60Normal>=60The [facility] ClinicComment on above:Performed By: #### CBC #### [facility] [address] [address] [address] Ashlie GrahamGFR-NON AF CANADIAN>60Normal>=60The [facility] ClinicComment on above:Performed By: #### CBC #### [facility] [address] [address] [address] Ashlie HillsGlucose [Mass/Vol]131 mg/dLCritically qqbe53-010Uie [facility] ClinicComment on above:Performed By: #### CBC #### [facility] [address] [address] [address] Ashlie HillsPhosphate [Mass/Vol]4.0 mg/dLNormal2.6-4.7The [facility] Comment on above:Performed By: #### CBC #### [facility] [address] [address] [address] Ashlie HillsPotassium [Moles/Vol]4.0 mmol/LNormal3.5-5.1The [facility] Comment on above:Performed By: #### CBC #### [facility] [address] [address] [address] Ashlie HillsSodium [Moles/Vol]141 mmol/GWvietl950-134Ssw [facility] Comment on above:Performed By: #### CBC #### [facility] [address] [address] [address] Ashlie HillsUrea nitrogen [Mass/Vol]17.0 mg/dLNormal7.0-18.0The [facility] ClinicComment on above:Performed By: #### CBC #### [facility] [address] [address] [address] Ashlie Vuaghn RANDOM W/MICROSCOPICon [id number] SEENNormalNONE SEENThe [facility] ClinicComment on above:Performed By: #### INFLUAB #### [facility] [address] [address] [address] Ashlie HillsBilirubin Ql (U)NegativeNormalNEGMetroHealth Main Campus Medical Center Comment on above:Performed By: #### INFLUAB #### [facility] [address] [address] [address] Ashlie HillsCASTNONE SEENNormalNONE SEENMetrohealth Main Campus Medical CenterComment on above:Performed By: #### INFLUAB #### [facility] [address] [address] [address] Ashlie HillsClarity (U)CLEARNormalCLEARMetrohealth Main Campus Medical CenterComment on above: Performed By: #### INFLUAB #### [facility] [address] [address] [address] Ashlie HillsColor (U)YELLOWNormalYELLOWMetrohealth Main Campus Medical CenterComment on above: Performed By: #### INFLUAB #### [facility] [address] [address] [address] Ashlie HillsCrystals LM Nom (Urine sed)NONE SEENNormalNONE SEENMetrohealth Main Campus Medical CenterComment on above:Performed By: #### INFLUAB #### [facility] [address] [address] [address] Dailey ChangEpithelial cells LM Ql (Urine sed)FEWAbnormalNONE SEEN /RAREMetrohealth Main Campus Medical CenterComment on above:Performed By: #### INFLUAB #### [facility] [address] [address] [address] Ashlie HillsGlucose Ql (U)NegativeNormalNEGATIVEMetrohealth Main Campus Medical CenterComment on above:Performed By: #### INFLUAB #### [facility] [address] [place] [address] Dr. Ashlie HillsHemoglobin Ql (U)NegativeNormalNEGMetroHealth Main Campus [facility] Center Comment on above:Performed By: #### INFLUAB #### [facility] [address] [address] [address] Ashlie HillsKetones Ql (U)NegativeNormalNEGATIVEUniversity Hospitals [facility] Center [facility] ClinicComment on above:Performed By: #### INFLUAB #### [facility] [address] [address] [address] Ashlie HillsLEUKOCYTESNegativeNormalNEGATIVEThe [facility] ClinicComment on above:Performed By: #### INFLUAB #### [facility] [address] [place] [address] Dr. Ashlie HillsMUCOUSNONE SEENNormalNONE SEENThe [facility] ClinicComment on above:Performed By: #### INFLUAB #### [facility] [address] [place] [address] Dr. Ashlie HillsNitrite Ql (U)NegativeNormalNEGATIVEThe [facility] ClinicComment on above:Performed By: #### INFLUAB #### [facility] [address] [place] [address] Dr. Ashlie HillspH (U)5.5 [pH]Normal5-9The [facility] ClinicComment on above: Performed By: #### INFLUAB #### [facility] [address] [place] [address] Dr. Ashlie HillsYkiueMJG7-2Qpvibn6-2Biq [facility] on above:Performed By: #### INFLUAB #### [facility] [address] [place] [address] Dr. Ashlie HillsSPEC GRAVITY>=1.328Kkbyagid0.005-<=1.025The [facility] Comment on above:Performed By: #### INFLUAB #### [facility] [address] [place] [address] Dr. Ashlie Vaughn LNYAQQG480 mg/dlAbnormalNEGATIVE/ TRACEThe [facility] Comment on above:Performed By: #### INFLUAB #### [facility] [address] [place] [address] Dr. Ashlie Pandyainogen Qn (U)0.2 {Little'U}/dLNormal0.2 - 1.0The [facility] ClinicComment on above:Performed By: #### INFLUAB #### [facility] [address] [address] [address] Ashlie BhaktaBCNONTracey SEENNormalNONE SEENThe [facility] ClinicComment on above: Performed By: #### INFLUAB #### [facility] [address] [place] [address] Dr. Ashlie Christine ACID SERUMon 47-79-8868Bglhe [Mass/Vol]5.0 mg/dLNormal 2.6-6.0The [facility] HospitalComment on above:Performed By: #### INFLUAB #### [facility] [address] [place] [address] Dr. Ashlie Recinos T PROTEIN CREAT RATIOon 14-47-9156Swltyqa (U) [Mass/Vol] 77.9 mg/dLCritically high<=12.0The [facility] ClinicComment on above:Performed By: #### CVDAGS #### [facility] [address] [place] [address] Dr. Ashlie Sullivan PROT CREAT RAT0.44NormalThe [facility] ClinicComment on above: Performed By: #### CVDAGS #### [facility] [address] [place] [address] Dr. Ashlie Recinos FKJKA382.15 mg/iBUhinou39.00-300.00The [facility] Comment on above:Performed By: #### CVDAGS #### [facility] [address] [place] [address] Dr. Ashlie HillsCULTURE URINEon 24-06-7123BHBPQMQ URINECulture Observations: GREATER THAN TWO ORGANISMS PRESENT, HEAVILY MIXED. PLEASE RESUBMIT CLEAN CATCH MID-STREAM URINE IF CLINICALLY INDICATED.NormalThe [facility] ClinicComment on above:Performed By: #### INFLUAB #### [facility] [address] [place] [address] Dr. Ashlie VrenonC AUTO DIFFon 34-27-7505YNDK #0.1 103/ulNormal0.0-0.1The [facility] ClinicComment on above:Performed By: #### CBC #### [facility] [address] [place] [address] Dr. Ashlie HillsBasophils/100 WBC (Bld)0.5 %Normal0.2-2.0The [facility] Comment on above:Performed By: #### CBC #### [facility] [address] [address] [address] Ashlie Mcintosh #0.4 103/ulNormal0.0-0.7The [facility] ClinicComment on above: Performed By: #### CBC #### [facility] [address] [address] [address] Ashlie Grahamosinophils/100 WBC (Bld)2.4 %Normal0.9-7.0The [facility] Comment on above:Performed By: #### CBC #### [facility] [address] [place] [address] Dr. Ashlie Grahamrythrocyte distribution width (RBC) [Ratio]14.1 %Tvfnqf95.0-15.0 [facility] CenterComment on above:Performed By: #### CBC #### [facility] [address] [place] [address] Dr. Ashlie HillsHematocrit (Bld) [Volume fraction]55.9 %Critically high36.0-48.0 The [facility] ClinicComment on above:Performed By: #### CBC #### [facility] [address] [place] [address] Dr. Ashlie HillsHemoglobin (Bld) [Mass/Vol]17.9 g/dLCritically high12.0-16.0The [facility] ClinicComment on above:Performed By: #### CBC #### [facility] [address] [place] [address] Dr. Ashlie Hunter #0.06 10e3/ulCritically high0.00-0.03The [facility] Comment on above:Performed By: #### CBC #### [facility] [address] [address] [address] Ashlie Hunter %0.4 %Normal0.0-0.5The [facility] ClinicComment on above: Performed By: #### CBC #### [facility] [address] [address] [address] Ashlie Swenson #5.8 103/ulCritically high1.2-3.8The [facility] Comment on above:Performed By: #### CBC #### [facility] [address] [address] [address] Ashlie Jademphocytes/100 WBC (Bld)35.4 %Gcrvtm50.5-60.0The [facility] ClinicComment on above:Performed By: #### CBC #### [facility] [address] [place] [address] Dr. Ashlie Marie DIFF REQNONormalThe [facility] ClinicComment on above: Performed By: #### CBC #### [facility] [address] [place] [address] Dr. Ashlie Mckeon (RBC) [Entitic mass]29.4 mxJbzmpi67.7-34.0The [facility] ClinicComment on above:Performed By: #### CBC #### [facility] [address] [place] [address] Dr. Ashlie Mckeon (RBC) [Mass/Vol]32.0 g/nLZninhw38.9-35.2The [facility] ClinicComment on above:Performed By: #### CBC #### [facility] [address] [place] [address] Dr. Ashlie Mckeon (RBC) [Entitic vol]91.8 vIEalcdz87.0-99.0The [facility] ClinicComment on above:Performed By: #### CBC #### [facility] [address] [place] [address] Dr. Ashlie Killian #0.8 103/ulNormal0.3-0.8The [facility] ClinicComment on above:Performed By: #### CBC #### [facility] [address] [place] [address] Dr. Ashlie Palominoocytes/100 WBC (Bld)4.8 %Normal1.7-12.0[facility] Comment on above:Performed By: #### CBC #### [facility] [address] [address] [address] Ashlie SteinUT #9.3 103/ulCritically high1.4-6.5The [facility] Comment on above:Performed By: #### CBC #### [facility] [address] [address] [address] Ashlie Steinutrophils/100 WBC (Bld)56.5 %Yzjujj72.0-75.0[facility] ClinicComment on above:Performed By: #### CBC #### [facility] [address] [address] [address] Ashlie Lantigualet mean volume (Bld) [Entitic vol]12.9 fLNormal9.5-13.5The [facility] ClinicComment on above:Performed By: #### CBC #### [facility] [address] [place] [address] Dr. Ashlie HillsPLT127 103/ulCritically krd359-952Bjy [facility] ClinicComment on above:Performed By: #### CBC #### [facility] [address] [address] [address] Ashlie HillsRBC6.09 106/ulCritically high4.20-5.40The [facility] Comment on above:Performed By: #### CBC #### [facility] [address] [address] [address] Ashlie HillsWBC16.4 103/ulCritically high4.0-11.0The [facility] ClinicComment on above:Performed By: #### CBC #### [facility] [address] [place] [address] Dr. Ashlie HillsCT ABD/PELVIS WO CONon 10-00-9429KQ ABD/PELVIS WO CON Begin Addendum #1 Mildly [...] without diverticulitis. Severe right hip degenerative change.NormalThe [facility] URINE PROFILEon 55-39-8475Pyjvoipsp Ql (U) NegativeNormalNEGATIVEMetrohealth Main Campus Medical CenterComment on above:Performed By: #### ERUR, UMICRO #### [facility] [address] [address] [address] Ashlie Chilel (U)CLEARNormalCLEARMetrohealth Main Campus Medical CenterComment on above: Performed By: #### ERUR, UMICRO #### [facility] [address] [address] [address] Ashlie Roberts (U)DK. ORANGEAbnormalYELLOWMetrohealth Main Campus Medical CenterComment on above:Performed By: #### ERUR, UMICRO #### [facility] [address] [address] [address] Ashlie Clayton micrscopic examination will be performed if indicated. NormalMetrohealth Main Campus Medical CenterComment on above:Performed By: #### OBED, UMICRO #### [facility] [address] [address] [address] Ashlie HillsGlucose Ql (U)250 mg/dlAbnormalDunlap Memorial Hospital Comment on above:Performed By: #### KRISTINAR, UMICRO #### [facility] [address] [address] [address] Ashlie HillsHemoglobin Ql (U)[facility] GreensborormalNEGMetroHealth Main Campus [facility] Center Comment on above:Performed By: #### ERUR, UMICRO #### [facility] [address] [address] [address] Ashlie HillsKetones Ql (U)NegativeNormalNEGATIVEMetrohealth Main Campus Medical CenterComment on above:Performed By: #### ERUR, UMICRO #### [facility] [address] [address] [address] Ashlie HillsLEUKOCYTESNegativeNormalNEGMetroHealth Main Campus Medical CenterComment on above:Performed By: #### ERUR, UMICRO #### [facility] [address] [address] [address] Ashlie HillsNitrite Ql (U)NegativeNormalNEGATIVEMetrohealth Main Campus Medical CenterComment on above:Performed By: #### ERUR, UMICRO #### [facility] [address] [place] [address] Dr. Ashlie HillspH (U)5.0 [pH]Normal5-9The [facility] ClinicComment on above: Performed By: #### OBED UMICRO #### [facility] [address] [place] [address] Dr. Ashlie HillsProtein (U) [Mass/Vol]100 mg/dLAbnormalNEGATIVE/ TRACEThe [facility] ClinicComment on above:Performed By: #### OBED UMICRO #### [facility] [address] [place] [address] Dr. Ashlie HillsSPEC GRAVITY>=1.231Mphcnxyh2.005-<=1.025The [facility] Comment on above:Performed By: #### OBED UMICRO #### [facility] [address] [place] [address] Dr. Ashlie HillsUR MICRO INDINDICATEDNormalThe [facility] ClinicComment on above: Performed By: #### OBED UMICRO #### [facility] [address] [place] [address] Dr. Ashlie Metzbilinogen Qn (U)1.0 {Little'U}/dLNormal0.2 - 1.0The [facility] ClinicComment on above:Performed By: #### OBED UMICRO #### [facility] [address] [place] [address] Dr. Ashlie HillsPROF CHEM 8 (BAS METB)on 68-92-4138Hdwnn gap [Moles/Vol]12.1 mmol/LNormalThe [facility] ClinicComment on above:Performed By: #### INFLUAB #### [facility] [address] [place] [address] Dr. Ashlie HillsCalcium [Mass/Vol]9.0 mg/dLNormal8.5-10.1[facility] Comment on above:Performed By: #### INFLUAB #### [facility] [address] [place] [address] Dr. Ashlie HillsChloride [Moles/Vol]101 mmol/VOvditr27-786Rkv [facility] Comment on above:Performed By: #### INFLUAB #### [facility] [address] [place] [address] Dr. Ashlie HillsCO2 [Moles/Vol]29.1 mmol/KRblzba00.0-32.0The [facility] Comment on above:Performed By: #### INFLUAB #### [facility] [address] [address] [address] Ashlie HillsCreatinine [Mass/Vol]0.86 mg/dLNormal0.55-1.02The [facility] ClinicComment on above:Performed By: #### INFLUAB #### [facility] [address] [place] [address] Dr. Dailey ChangEGFR-AF CANADIAN>60Normal>=60The [facility] ClinicComment on above:Performed By: #### INFLUAB #### [facility] [address] [place] [address] Dr. Ashlie GrahamGFR-NON AF CANADIAN>60Normal>=60The [facility] ClinicComment on above:Performed By: #### INFLUAB #### [facility] [address] [place] [address] Dr. Ashlie HillsGlucose [Mass/Vol]236 mg/dLCritically sgdo79-129Cvg [facility] ClinicComment on above:Performed By: #### INFLUAB #### [facility] [address] [place] [address] Dr. Ashlie HillsPotassium [Moles/Vol]4.2 mmol/LNormal3.5-5.1The [facility] Comment on above:Performed By: #### INFLUAB #### [facility] [address] [place] [address] Dr. Ashlie HillsSodium [Moles/Vol]138 mmol/ZWlwkzn261-372Ftv [facility] Comment on above:Performed By: #### INFLUAB #### [facility] [address] [place] [address] Dr. Ashlie HillsUrea nitrogen [Mass/Vol]11.0 mg/dLNormal7.0-18.0[facility] CenterComment on above:Performed By: #### INFLUAB #### [facility] [address] [place] [address] Dr. Ashlie Jones nitrogen/Creatinine [Mass ratio]12.8 mg/mgNoHarrison Community HospitalComment on above:Performed By: #### INFLUAB #### [facility] [address] [place] [address] Dr. Ashlie Recinos MICROSCOPIC ONLYon 25-87-2716GQVZWOOXQPLNOJzpgjggwXRKM SEEN [facility] CenterCommymichigan medical center clare on above:Performed By: #### MADELINE CLAYRO #### [facility] [address] [place] [address] Dr. Ashlie Cortez identified Cx Nom (U)INDICATEDBethesda North HospitalCommymichigan medical center clare on above:Performed By: #### PEREZ CLAYICRO #### [facility] [address] [place] [address] Dr. Ashlie Thibodeaux SEENNormalNONE SEENMetrohealth Main Campus Medical CenterCommymichigan medical center clare on above:Performed By: #### MADELINE CLAYRO #### [facility] [address] [place] [address] Dr. Ashlie Banegas LM Nom (Urine sed)NONE SEENNormalNONE SEENMetrohealth Main Campus Medical CenterCommymichigan medical center clare on above:Performed By: #### OBED UMICRO #### [facility] [address] [place] [address] Dr. Dailey ChangEpithelial cells LM Ql (Urine sed)MODERATEAbnormalNONE SEEN /RARE The [facility] ClinicCommymichigan medical center clare on above:Performed By: #### OBED UMICRO #### [facility] [address] [place] [address] Dr. Ashlie Guzman SEENNormalNONE SEENMetrohealth Main Campus Medical CenterCommymichigan medical center clare on above:Performed By: #### OBED UMICRO #### [facility] [address] [place] [address] Dr. Ashlie HillsQjnhaNBC6-1Uvrmxd1-7LtsTrinity Health Systemment on above:Performed By: #### ERUR, UMICRO #### [facility] [address] [place] [address] Dr. Ashlie HillsWBC0-2AbnormalNONE SEENDelaware County Hospital on above: Performed By: #### ERUR, UMICRO #### [facility] [address] [address] [address] Ashlie VelásquezASTPRESENTAbnormalNONE SEENTrinity Health Systemment on above:Performed By: #### ERUR, UMICRO #### [facility] [address] [address] [address] Ashlie Hutchinson RIGHT 1 OR 2 VWS WITH PELVISon [id number] RIGHT 1 OR 2 VWS WITH PELVISUnElyria Memorial Hospital Department of Radiology [address] [place] [id number] Patient Name: MITZI MACIAS : 1970 Sex: F Age: Race: White Pt. Location: Patient Status: O Ordered Date: 07/20/2020 1:45:00 PM Completed Date: 07/20/2020 01:57 PM Requesting Provider: LIZ EISENBERG Attending Provider: LIZ EISENBERG Report Copy To: MCKAYLA BALS Signs & Symptoms: M25.551 Pain in right hip I10 History: [place] Comments: evaluate Exam: HIP RIGHT 1 OR [...] MRI. Electronically signed: Pipo Acevedo. Transcribed by: [email or web address], User Resident: Electronically Signed by: PIPO ACEVEDO @ 07/20/2020 03:45 [facility] CenterComment on above:Order Comment: evaluate Vital Signs Date TimeVital SignValuePerforming BkjeujmibSpfrueqa98-08-4534 17:58-0400Body .1 cmLisa Aichholz NUT DEHYDRATOR OPERATOR-C Work Phone: [phone] [place], [place] 7630610-22-2025 17:58-0400 Body mass index (BMI) [Ratio]61 kg/m2Lisa Aichholz NUT DEHYDRATOR OPERATOR-C Work Phone: [phone]10-22-2025 17:58-0400 Body mukcrxvfoer54.1 [degF]Mckayla Aichholz NUT DEHYDRATOR OPERATOR-C Work Phone: [phone])[address]10-22-2025 17:58-0400 Body roytvg326.18 kgLisa Aichholz NUT DEHYDRATOR OPERATOR-C Work Phone: 1(035)803-[address] [place], [place] 8205010-22-2025 17:58-0400 Diastolic blood knafdgfv19 mm[Hg]Mckayla Aichholz NUT DEHYDRATOR OPERATOR-C Work Phone: 1([phone] [place], [place] 8205010-22-2025 17:58-0400 Heart rate84 /minLisa Aichholz NUT DEHYDRATOR OPERATOR-C Work Phone: [phone])[address]10-22-2025 17:58-0400 Respiratory rate20 /minLisa Aichholz NUT DEHYDRATOR OPERATOR-C Work Phone: 1(216)3-[address] [place], [place] 8205010-22-2025 17:58-0400 SaO2% (BldA) [Mass fraction]90 %Mckayla Aichholz NUT DEHYDRATOR OPERATOR-C Work Phone: [phone])[address]10-22-2025 17:58-0400 Systolic blood jatqyzzw572 mm[Hg]Mckayla Aichholz NUT DEHYDRATOR OPERATOR-C Work Phone: 1(058)[address]09-29-2025 15:37-0400 Body hktrgusmdgz22.1 [degF]Mckayla Aichholz NUT DEHYDRATOR OPERATOR-C Work Phone: 1([phone])[address]09-29-2025 15:37-0400 Diastolic blood mkmlyaxn62 mm[Hg]Mckayla Aichholz NUT DEHYDRATOR OPERATOR-C Work Phone: 1([phone])[address]09-29-2025 15:37-0400 Heart rate81 /minLisa Aichholz NUT DEHYDRATOR OPERATOR-C Work Phone: [phone])[address] [place], [place] 7630609-29-2025 15:37-0400 Respiratory rate20 /minLisa Aichholz NUT DEHYDRATOR OPERATOR-C Work Phone: [phone])[address]09-29-2025 15:37-0400 SaO2% (BldA) [Mass fraction]92 %Mckayla Aichholz NUT DEHYDRATOR OPERATOR-C Work Phone: [phone]09-29-2025 15:37-0400 Systolic blood bmbshepu794 mm[Hg]Mckayla Aichholz NUT DEHYDRATOR OPERATOR-C Work Phone: [phone])[address]07-24-2025 09:48-0400 Body .2 Reji Souza MD Work Phone: [facility] HospitalApipxwqiuc45-68-0225 09:48-0400Body mass index (BMI) [Ratio]56.38 kg/f5GvgbvRain Souza MD Work Phone: noLee[facility] Summit HospitalSdfsyxpudc54-01-7129 09:48-0400Body .29 kgRain Souza MD Work Phone: [facility] HospitalJhtrsaxkob61-89-5711 09:48-0400Diastolic blood xnzupbbr84 mm[Hg]Rain Souza MD Work Phone: [facility] HospitalVybtfewzze94-57-5603 09:48-0400Heart rate72 /min Rain Souza MD Work Phone: [facility] HospitalZwwtvxnvwu41-13-1567 09:48-0400Respiratory rate16 /minRain Souza MD Work Phone: [facility] HospitalQgajutjhhz46-48-0405 09:48-5783KnK1% (BldA) [Mass fraction]84 %Rain Souza MD Work Phone: [facility] HospitalMnpvptabku80-68-0870 09:48-0400Systolic blood vrilckhu569 mm[Hg]Rain Souza MD Work Phone: [facility] HospitalDcdtebmuus32-28-2993 18:11-0400Body mass index (BMI) [Ratio]58.64 kg/m2Lisa Wan NUT DEHYDRATOR OPERATOR Work Phone: [facility] HospitalFmkrxlcbtr33-84-6298 18:11-0400Body temperature 98.49 [degF]Mckayla Wan NUT DEHYDRATOR OPERATOR Work Phone: [facility] HospitalMvwgcvyejl82-67-2581 18:11-0400Body bonwwb877.83 kgLisa Juanjosehmariyaz NUT DEHYDRATOR OPERATOR Work Phone: [facility] HospitalIxgvrbyxje16-91-9554 18:11-0400Diastolic blood mm[Hg]Mckayla Chetz NUT DEHYDRATOR OPERATOR Work Phone: [facility] HospitalKjhszertrj61-85-6231 18:11-0400Heart rate81 /min Mckayla Chetz NUT DEHYDRATOR OPERATOR Work Phone: [address] [address]Hzornthewi83-87-9434 18:11-0400Respiratory rate20 /minLisa Chetz NUT DEHYDRATOR OPERATOR Work Phone: [address] [address]Jwdegfpzwy77-16-8587 18:11-9130SpE1% (BldA) [Mass fraction]90 %Mckayla Chetz NUT DEHYDRATOR OPERATOR Work Phone: [facility] HospitalZzlrtufdaj57-26-2156 18:11-0400Systolic blood pnporeyh343 mm[Hg]Mckayla Rosenbergz NUT DEHYDRATOR OPERATOR Work Phone: [facility] HospitalRckfzhnyzk13-72-5168 10:19-0400Body temperature 98.01 [degF]Mckayla Harshadholz NUT DEHYDRATOR OPERATOR Work Phone: [facility] HospitalZjqnfcizte27-32-8196 10:19-0400Diastolic blood tugwznbz08 mm[Hg]Mckayla Harshadholz NUT DEHYDRATOR OPERATOR Work Phone: [facility] HospitalBbmqvpdbit73-32-6154 10:19-0400Heart rate71 /min Mckayla Chetz NUT DEHYDRATOR OPERATOR Work Phone: [facility] HospitalOoopvhjmst62-69-4268 10:19-0400Respiratory rate20 /minLisa Patriciaholz NUT DEHYDRATOR OPERATOR Work Phone: [facility] HospitalEzadxwgyrm00-09-6963 10:19-9704JeA9% (BldA) [Mass fraction]88 %Mckayla Rosenbergz NUT DEHYDRATOR OPERATOR Work Phone: [facility] HospitalUttomkwpvt36-36-3804 10:19-0Systolic blood aoetlleu542 mm[Hg]Mckayal Rosenbergz NUT DEHYDRATOR OPERATOR Work Phone: [facility] HospitalNakgrutycj25-83-7902 14:11-0400Body pkidme137.2 Brianisa Harshadholz NUT DEHYDRATOR OPERATOR Work Phone: [facility] HospitalQdrekgtfpc33-44-1834 14:11-0400Body mass index (BMI) [Ratio]56.51 kg/m2Lisa Harshadholz NUT DEHYDRATOR OPERATOR Work Phone: [facility] HospitalGynftqvmyr12-37-8222 14:11-0400Body temperature 98.71 [degF]Mckayla Patriciaholz NUT DEHYDRATOR OPERATOR Work Phone: [facility] HospitalDmxhmwnqvr41-45-2113 14:11-0400Body dnpqri262.66 kgLisa Juanjosehholz NUT DEHYDRATOR OPERATOR Work Phone: [facility] HospitalQvzlxlklvw75-33-9392 14:11-0400Diastolic blood hnoxvxkg03 mm[Hg]Mckayla Blas NUT DEHYDRATOR OPERATOR Work Phone: [facility] HospitalRvpsxrsnvo12-50-0441 14:11-0400Heart rate75 /min Mckayla Blas NUT DEHYDRATOR OPERATOR Work Phone: noLee[facility] Summit HospitalOhdtazkxrk00-53-5920 14:11-0400Respiratory rate18 /minLisa Blas NUT DEHYDRATOR OPERATOR Work Phone: noLee's Summit HospitalHuzduqkrxm84-16-3840 14:11-4206OwQ5% (BldA) [Mass fraction]90 %Mckayla Blas NUT DEHYDRATOR OPERATOR Work Phone: [facility] HospitalIxpowaiaqk26-99-7100 14:11-0400Systolic blood cxmsfcij658 mm[Hg]Mckayla Blas NUT DEHYDRATOR OPERATOR Work Phone: [facility] HospitalIhjhxsaauz96-50-8373 11:21-0400Body hzdudt007.2 Reji Souza MD Work Phone: [facility] HospitalShzpfxzobr97-03-0267 11:21-0400Body mass index (BMI) [Ratio]55.91 kg/s3YzcqbRain Souza MD Work Phone: [phone]-[facility] HospitalMmkajrnqof39-87-5629 11:21-0400Body vidjdr213.93 kgRain Souza MD Work Phone: [facility] HospitalVoomhbcwny30-51-7270 11:21-0400Diastolic blood opbmaoqd17 mm[Hg]Rain Souza MD Work Phone: [facility] HospitalCqpvtnfeyr63-54-7793 11:21-0400Heart rate70 /min Rain Souza MD Work Phone: [facility] HospitalExmzexpnfu10-61-8191 11:21-0400Respiratory rate16 /minRain Souza MD Work Phone: [facility] HospitalMoadjmbmmf10-74-6179 11:21-2481AaP4% (BldA) [Mass fraction]91 %Rain Souza MD Work Phone: [facility] HospitalDsftgwqyhk14-85-3485 11:21-0400Systolic blood hkakhday375 mm[Hg]Rain Souza MD Work Phone: noLee[facility] Summit HospitalPvnhsyyqmc27-11-2528 17:44-0500Body mass index (BMI) [Ratio]57.31 kg/m2Mckayla Blas NUT DEHYDRATOR OPERATOR Work Phone: noLee's Summit HospitalWpyrifhzmy75-26-3138 17:44-0500Body temperature 98.01 [degF]Mckaylataryn Blas NUT DEHYDRATOR OPERATOR Work Phone: [facility] HospitalBfbdzridwz57-92-7326 17:44-0500Body .97 kgMaria De Jesus Wan NUT DEHYDRATOR OPERATOR Work Phone: [facility] HospitalVatbrrbtqi57-49-9883 17:44-0500Diastolic blood mm[Hg]Mckayla Wan NUT DEHYDRATOR OPERATOR Work Phone: [facility] HospitalFlpuxucpmv96-79-1474 17:44-0500Heart rate83 /min Mckaylataryn Blas NUT DEHYDRATOR OPERATOR Work Phone: [facility] HospitalQulxlnqdke60-60-6705 17:44-0500Respiratory rate18 /minLi Wan NUT DEHYDRATOR OPERATOR Work Phone: [facility] HospitalYebzzvrlxa25-83-5039 17:44-1561TjN4% (BldA) [Mass fraction]91 %Mckayla Wan NUT DEHYDRATOR OPERATOR Work Phone: [facility] HospitalIqanjgwyzq50-43-2407 17:44-0500Systolic blood lrxixxtm041 mm[Hg]Mckaylataryn Blas NUT DEHYDRATOR OPERATOR Work Phone: [facility] HospitalBtbyastjln84-46-2222 10:00-0500Blood Pressure LocationPatricezra ARAUZ [facility] [place] 036442-04-2024 10:00-0500Diastolic blood erqgvrdf36 mm[Hg]Elbert ARAUZ [facility] [place] 036442-04-2024 10:00-0500Heart rate76 /minPatrick ARAUZ [facility] 10:00-0500Systolic blood stpofbcv430 mm[Hg]Elbert ARAUZ [facility] [place] 392491-19-2024 10:20-0500Body xdordw072.2 Reji Souza MD Work Phone: [address] [place], [place] [address]Wmwjvxsdgx54-28-8219 10:20-0500Body mass index (BMI) [Ratio]56.7 kg/q1HfirhRain Souza MD Work Phone: [facility] HospitalMhzhixjura17-64-0461 10:20-0500Body iuinmq968.2 kgRain Souza MD Work Phone: [facility] HospitalSblycsxysy83-33-0712 10:20-0500Diastolic blood inkpxjqi44 mm[Hg]Rain Souza MD Work Phone: [phone] [place], [place] [address]Xroqkprdig75-28-5990 10:20-0500Heart rate72 /min Rain Souza MD Work Phone: [place] [address]Ddehlaljeg05-85-1788 10:20-0500Respiratory rate16 /minRain Souza MD Work Phone: [place] [address]Qzdlgbribt12-25-3273 10:20-0500Systolic blood wwbjifov210 mm[Hg]Rain Souza MD Work Phone: [facility] HospitalNlemiwldgn28-95-8178 10:27-0400Body .1 Jamal Blas NUT DEHYDRATOR OPERATOR Work Phone: [facility] HospitalKjhqaucclu64-80-5860 10:27-0400Body mass index (BMI) [Ratio]61.01 kg/m2Mckayla Blas NUT DEHYDRATOR OPERATOR Work Phone: [facility] HospitalCsrwgyjbgc62-40-6449 10:27-0400Body temperature 98.49 [degF]Mckayla Blas NUT DEHYDRATOR OPERATOR Work Phone: [facility] HospitalZcoujzpply44-09-3166 10:27-0400Body .29 kgMckayla Blas NUT DEHYDRATOR OPERATOR Work Phone: [facility] HospitalKbefxqqour33-08-7168 10:27-0400Diastolic blood nicrgytc73 mm[Hg]Mckayla Blas NUT DEHYDRATOR OPERATOR Work Phone: [facility] HospitalNqbhppajjt32-49-9490 10:27-0400Heart rate77 /min Mckayla Blas NUT DEHYDRATOR OPERATOR Work Phone: [facility] HospitalPxjaoekjtu90-50-2791 10:27-0400Respiratory rate19 /minMckayla Blas NUT DEHYDRATOR OPERATOR Work Phone: [facility] HospitalJabkiqzaoe05-75-5604 10:27-7649DxC8% (BldA) [Mass fraction]92 %Mckayla Blas NUT DEHYDRATOR OPERATOR Work Phone: noLee's Summit HospitalUowwddehrd79-83-7301 10:27-0400Systolic blood kilgtujr456 mm[Hg]Mckayla Blas NUT DEHYDRATOR OPERATOR Work Phone: [facility] HospitalRunprkjayh12-11-9230 15:00-0400Body .18 cmAbdul Tico Other [facility] [employer] Other 138461-99-5331 15:00-0400Body rwohvyvdzox34.6 [degF]Stephanie Tico Other [employer] Other 040549-40-6726 15:00-0400Diastolic blood mrcjvake23 mm[Hg] Stephanie Tico Other [employer] Other 08-31-2022 15:00-0400Respiratory rate20 /minAbdul Tico Other [employer] Other 08-31-2022 15:00-6352JvZ8% (BldA) [Mass fraction]91 % Stephanie Tico Other [employer] Other 08-31-2022 15:00-0400Systolic blood mm[Hg] Stephanie Tico Other [facility] [employer] Other 08-15-2022 09:20-0400Body maitbh380.18 cmAbdul Tico Other [employer] Other 08-15-2022 09:20-0400Body mosmpwunztn92.5 [degF]Stephanie Tico Other [employer] Other 08-15-2022 09:20-0400Diastolic blood xiwpecpc65 mm[Hg] Stephanie Tico Other [employer] Other 08-15-2022 09:20-0400Respiratory rate20 /minAbdul Tico Other [employer] Other 08-15-2022 09:20-3851AcU6% (BldA) [Mass fraction]91 % Stephanie Tico Other [employer] Other 08-15-2022 09:20-0400Systolic blood lpyfetna972 mm[Hg] Stephanie Tico Other [employer] Other 08-01-2022 10:24-0400Blood Pressure LocationElbert REGLA [facility] 08-01-2022 10:24-0400Diastolic blood jsulbjge22 mm[Hg] Elbert ARAUZ [facility] 08-01-2022 10:24-040Heart rate70 /minPatrick ARAUZ [facility] 08-01-2022 10:24-0400Respiratory rate16 /minPatrick ARAUZ [facility] 08-01-2022 10:24-0400Systolic blood mm[Hg] Elbert ARAUZ [facility] Encounters Encounter DateEncounter TypeCare ProviderFacilityStart: 04-29-2025 End: 11-86-7122speqfznaysMdwfAshia Blas NP-C Work Phone: -[facility] ClydeStart: 04-29-2025 End: 70-00-5498Crhxlqj encounter procedureMckayla Blas NP-C-[facility] [place] Work Phone: Start: 83-48-1692oxsjxkswfwEgcrmSelam Urias DPM Facility:Ortho/Sport MedStart: 04-23-2025 End: 48-76-4398qglmuvovedCodgyr Nas Bob COMMANDING OFFICER TRAFFIC DIVISION-CNPFacility:[facility] FindlayStart: 04-17-2025 End: 96-35-2447hymmefktnfWxxryd Nas Bob COMMANDING OFFICER TRAFFIC DIVISION-CNPFacility:[facility]ertart: 04-06-2025 End: 01-77-3923rblcmxueaaWtmbAshia Blas NP-C Work Phone: [facility] Work Phone: Start: 04-06-2025 End: 11-95-0257Zvguobf encounter procedureMckayla Blas NP-C-[facility] [place] Work Phone: Start: 87-17-3822Qzdlazf encounter procedureMckayla Blas NUT DEHYDRATOR OPERATOR-C Work Phone: [facility] Hospitaltart: 64-67-1111Rdn- patient / Non-visitFlynn Urias DPM-[facility] Work Phone: Start: 85-50-4706Zjo-patient / Non-visitPrice Ramsey DO-[facility] Work Phone: Start: 07-93-9403rmnzrgphkwUhblfr Nas Bob COMMANDING OFFICER TRAFFIC DIVISION-[employer] TRIMMER Facility:[facility]layStart: 03-23-2025 End: 37-22-4941lmwjeykfcaRnsimh Nas Bob COMMANDING OFFICER TRAFFIC DIVISION-CNPFacility:[facility] FindlayStart: 03-11-2025 End: 27-12-7148ntovpriljpYjrof Jon Johnson DPMFacility:[facility]trStart: 03-09-2025 End: 83-76-4766QkwhtgVsfd Aichholz NP Work Phone: [facility] FMComment on above:Tobacco user; Encounter for smoking cessation counselingStart: 01-29-2025 End: 79-17-4101Qsxhoi Jack Souza MD Work Phone: [facility] ENDOCRINOLOGYStart: 01-29-2025 End: 32-88-4987Mbtgyyashley Souza MD Work Phone: [facility] ENDOCRINOLOGYStart: 01-29-2025 End: 61-86-9682Egehwbxpk Result EncounterGeneric External Data ProviderNOMS External Department UnsolicitedStart: 01-29-2025 End: 09-48-0577rdwayeubocNYNMIRichard Negron AvailableStart: 01-29-2025 End: 21-09-9236Mqwwbt outpatient visit 25 minutesRain Souza MD Work [...] index (BMI) of50.0 to 59.9 in adult ([facility])Start: 01-26-2025 End: 54-09-2560pevfucgeqmCEEV AICHHOLZNot AvailableStart: 01-26-2025 End: 64-16-0221Kmmiott encounter Marcela Blas NUT DEHYDRATOR OPERATOR Work Phone: [facility] CWM FMComment on above:Encounter for subsequent annual wellness visit (AWV) in Medicare patient (Primary Dx); Mixed hyperlipidemia ; Type 2 diabetes mellitus with complication, with long-term current use of insulin (HCC); Bilateral lower extremity edema; Gastro-esophageal reflux disease without esophagitis; Chronic diastolic heart failure ([facility]); Primary hypertension ; Pulmonary hypertension ([facility]); Diabetic polyneuropathy associated with type 2 diabetes mellitus ([facility]); Pulmonary emphysema, unspecified emphysema type ([facility]); Moderate persistent asthma without complication (HCC); Insomnia; Non-seasonal allergic rhinitis, unspecified trigger; Type 2 diabetes mellitus with unspecified complications (HCC); Anxiety and depression ; Antibiotic-induced yeast infection; Chronic obstructive pulmonary disease, unspecified (HCC); Hyperlipidemia, unspecified ; Vaginal yeast infection; Morbid (severe) obesity due to excess calories ([facility])Start: 01-06-2025 End: 02-81-0724aafvytxirhHXSMDJLWood County Hospitaltart: 12-18-2024 End: 68-57-7577OedsyiAqae Aichholz NUT DEHYDRATOR OPERATOR Work Phone: noms CWM FMComment on above:Hyperlipidemia, unspecified ; Tobacco user; Encounter for smoking cessation counselingStart: 12-09-2024 End: 41-30-0467Uqjvpiashley Blas NUT DEHYDRATOR OPERATOR Work Phone: noms CWM FMStart: 12-09-2024 End: 51-57-8004Ypkfyxyousif Blas NUT DEHYDRATOR OPERATOR Work Phone: noms CWM FMStart: 12-09-2024 End: 70-93-5654dxhouwzuveWGFB AICMARIYAZNot AvailableStart: 12-09-2024 End: 26-04-6528Sqciiq outpatient visit 25 minutesMckayla Blas NUT DEHYDRATOR OPERATOR Work Phone: noms CWM FMComment on above:Cellulitis of left lower extremity (Primary Dx); COPD exacerbation (CMS/HCC); Primary hypertension (CMS/HCC); Pulmonary hypertension (CMS/HCC); Morbid (severe) obesity due to excess calories (CMS/HCC); Type 2 diabetes mellitus with complication, with long-term current use of insulin (CMS/HCC); Anxiety and depression (CMS/HCC); Fever, unspecified fever causeStart: 12-04-2024 End: 07-36-2402Qzhtzvopi Result EncounterGeneric External Data ProviderNOMS External Department UnsolicitedStart: 12-04-2024 End: 44-94-2752Zmpxmbttu Result EncounterGeneric External Data ProviderNOKS External Department UnsolicitedStart: 10-27-2024 End: 72-19-2468ynbhpculxtSIQB AICMARIYAZNot AvailableStart: 10-27-2024 End: 46-93-1162Bigoqs outpatient visit 25 minutesMckayla Blas NUT DEHYDRATOR OPERATOR Work Phone: noms CWM FMComment on [...] esophagitis present; Venous ulcer of right leg ([facility]/HCC)Start: 10-21-2024 End: 59-83-4032XmaudiSuez Aichdallin NUT DEHYDRATOR OPERATOR Work Phone: noms CWM FMComment on above:Chronic obstructive pulmonary disease, unspecifiedStart: 10-08-2024 End: 85-44-2938Uuqcsgjga Result EncounterLisa Blas NUT DEHYDRATOR OPERATOR Work Phone: noms External Department UnsolicitedStart: 10-08-2024 End: 33-66-7281Hquxmlzyi Result EncounterLisa Blas NUT DEHYDRATOR OPERATOR Work Phone: noms External Department UnsolicitedStart: 10-08-2024 End: 73-68-3997Banqbl outpatient visit 25 Adolfo Souza MD Work [...] of50.0 to 59.9 in adultStart: 10-08-2024 End: 89-43-2811vdbyyoyimxGQHCV F SABBAGHNot AvailableStart: 08-27-2024 End: 52-20-5538Cbjqgn outpatient visit 25 minutesMckayla Wan SCHAEFER Work [...] complication, with long-term current use of insulin ([facility]); Tobacco user; Mixed hyperlipidemia ([facility]); Gout, unspecified cause, unspecified chronicity, unspecified site; Vitamin deficiency; Gastro-esophageal reflux disease without esophagitis; Edema, unspecified; Edema; Hyperlipidemia, unspecified ([facility]); Encounter for smoking cessation counseling; Venous ulcer of right leg ([facility]); Antibiotic-induced yeast infectionStart: 08-27-2024 End: 61-31-7882dgencuurulUBOB AICHHOLZNot AvailableStart: 08-27-2024 End: 89-28-6752Kycdopmdp Result EncounterGeneric External Data ProviderNOMS External Department UnsolicitedStart: 08-27-2024 End: 08-69-8886Vgqlykcrv Result EncounterGeneric External Data ProviderNOMS External Department UnsolicitedStart: 08-08-2024 End: 60-14-8591ekmxgsbvppKWLQPLake County Memorial Hospital - Westtart: 07-17-2024 End: 76-62-3440SltdpqUrdx Aichholz NUT DEHYDRATOR OPERATOR Work Phone: noms CWM FMStart: 07-14-2024 End: 67-49-3157Nsklkk outpatient visit 25 Heena Blas NP Work Phone: noms CWM FMComment on above:Primary hypertension ([facility]) (Primary Dx); Diabetic polyneuropathy associated with type 2 diabetes mellitus ([facility]); Pulmonary emphysema, unspecified emphysema type ([facility]); Critical limb ischemia of right lower extremity ([facility]); PAD (peripheral artery disease) ([facility]); Gastroesophageal reflux disease, unspecified whether esophagitis present; Bilateral lower extremity edema; Venous ulcer of right leg ([facility]); Type 2 diabetes mellitus with complication, with long-term current use of insulin ([facility]); Tobacco user; Encounter for smoking cessation counseling; Kidney stone; Adrenal mass 1 cm to 4 cm in diameter ([facility]); Radiculopathy, lumbar region; Non-seasonal allergic rhinitis, unspecified trigger; Type 2 diabetes mellitus with unspecified complications ([facility])Start: 07-14-2024 End: 92-36-3431ngdqutyucdXUEA AICHHOLZNot AvailableStart: 07-05-2024 End: 39-85-2708AcwshxByvz Chetz NUT DEHYDRATOR OPERATOR Work Phone: noms [facility] FMComment on above:Bilateral lower extremity edemaStart: 06-11-2024 End: 82-71-2281wcvqfprzkoXqgebln Mahnaz REGLAFacility:EU [place]uskyStart: 06-11-2024 End: 46-32-5280Hcveccw encounter procedurePatricezra ARAUZ [facility] [place] Start: 05-27-2024 End: 42-72-7446Tfnbhbashley Souza MD Work Phone: noms ENDOCRINOLOGYStart: 05-27-2024 End: 71-64-4995Fxvjtnyousif Souza MD Work Phone: noms ENDOCRINOLOGYStart: 05-27-2024 End: 47-99-3912nrcvwavqrnZQYTH F SABBAGHNot AvailableStart: 05-27-2024 End: 70-31-0272Gohasy outpatient visit 25 minutesRain Souza MD Work [...] to 59.9 in adult (CMS/HCC)Start: 05-12-2024 End: 15-25-6010Fykfaljff Result EncounterGeneric External Data ProviderNOMS External Department UnsolicitedStart: 05-12-2024 End: 23-96-8107Lmzbebgdh Result EncounterGeneric External Data ProviderNOMS External Department UnsolicitedStart: 11-10-0348belklznbakQRUWBEJV E SILVIA Facility:EU [place]Start: 04-24-2024 End: 26-04-8773Bqhheifki Result EncounterGeneric External Data ProviderNOMS External Department UnsolicitedStart: 04-24-2024 End: 08-34-1223Ghywhtaiy Result EncounterGeneric External Data ProviderNOMS External Department UnsolicitedStart: 04-14-2024 End: 50-87-7201Rxilhb flowsNazanin Blas NUT DEHYDRATOR OPERATOR Work Phone: noms CWM FMStart: 04-14-2024 End: 06-38-5470Khxewt flowsheetMckayla Blas NUT DEHYDRATOR OPERATOR Work Phone: noms CWM FMStart: 04-14-2024 End: 63-09-4389Gipqyf outpatient visit 25 minutesLisa Blas NUT DEHYDRATOR OPERATOR Work Phone: noms CWM FMComment on [...] Tobacco user; Hyperpigmentation of skinStart: 04-14-2024 End: 23-02-5445wmpsdnfsqnIJUZ LALITot AvailableStart: 04-05-2024 End: 63-25-1736ZincuoAcke Aichholz NUT DEHYDRATOR OPERATOR Work Phone: noms CWM FMComment on above:Hyperlipidemia, unspecified (CMS/HCC); Bilateral lower extremity edemaVitamin D deficiency, unspecifiedStart: 16-38-4944Ceobkum encounter procedureRain Souza MD Work Phone: noms HealthcareStart: 12-14-2023 End: 83-47-0120Kncgwrkdc Result EncounterLisa Wan NUT DEHYDRATOR OPERATOR Work Phone: noms External Department UnsolicitedStart: 12-14-2023 End: 86-43-9943Hadthmhks Result EncounterLisa Chetz NUT DEHYDRATOR OPERATOR Work Phone: noms External Department UnsolicitedStart: 08-31-2023 End: 44-52-3238Jalakeyfg Result EncounterAmy Cari PA Work Phone: noms External Department UnsolicitedStart: 08-31-2023 End: 03-10-3887Xcynqxudk Result EncounterAmy Udell PA Work Phone: noms External Department UnsolicitedStart: 08-17-2023 RefillLisa Rosenbergz NUT DEHYDRATOR OPERATOR Work Phone: noms CWM FMComment on above:Vaginal yeast infection (Primary Dx)Start: 92-92-8376UsisqoQabk Aichdallin NUT DEHYDRATOR OPERATOR Work Phone: NOYE CWM FMComment on above:Type 2 diabetes mellitus with unspecified complications (CMS/HCC); Edema, unspecified; EdemaStart: 74-90-1941amcrfyxfbxVTOCKLXFXFUW LAKSHMIPATHY .Facility:M4Ymmdc: 12-05-2022 End: 18-20-6212Kibtilbvmw and management of inpatientJESSICA ALONDRA .Facility:H1 Start: 11-23-2022 End: 72-98-8956tsduoqtwtiHQH MCKAYLA AICHHOLZFacility:G9Urtwr: 11-22-2022 End: 93-63-6942dudwijmeyrTTL MCKAYLA AICHHOLZFacility:Q9Uhdkz: 11-17-2022 End: 96-20-1717fynwpbqrqdXPHKCYS HALKER .Facility:E7Fwkaj: 11-15-2022 End: 91-81-4548Xmviqsa encounter procedureJENNIFER E SILVIA [facility] start: 10-05-2022 End: 71-87-5434qauysmmgatTWOHBV DIAB .Facility:U4Xwdit: 09-21-2022 End: 90-50-4602tpdqvhbqflBKF MCKAYLATaryn BLASFacility:M2Eqilo: 58-29-1616zhpmzohruf COMFORT CULLENFacility:D0Guhrk: 08-24-2022 End: 19-69-4811cgmswwyhmnJE CHAPARRO S MORTENSEN .Facility:A1Ngozq: 08-21-2022 End: 49-81-9914xatpwymcfeZKCJK D [facility]:B4Wglur: 07-27-2022 End: 78-32-6969jpvpixxtcsYUCM TAMLYN .Facility:A9Nommx: 07-18-2022 End: 77-41-8111xmhimiqcijQDLA TAMLYN .Facility:O1Vrkpa: 07-18-2022 End: 08-71-5741ozdaltwnjbNLKSP D [facility]ITALFac[facility]:F7Ixxgo: 07-06-2022 End: 98-93-3935sdexzfbcpjXYI MCKAYLA WANFacility:O5Jgjgz: 05-11-2022 End: 17-58-0799vsnzflsnfnGJDX VALENZUELA .Facility:W7Easil: 04-25-2022 End: 18-30-6058puvjcdxuerUI CHAPARRO S [place]ORTENSEN .Facility:C6Suawb: 04-20-2022 End: 48-87-9899dpdmrancasLQPN VALENZUELA .Facility:F9Algqw: 03-08-2022 End: 96-94-9337wqupdfiljzXgvkj Tico Other [employer] Other Start: 29-53-9328Pgdohk outpatient visit 15 minutes Stephanie QadirFPG NephrologyStart: 03-03-2022 End: 70-99-9396coglnhlsmhCRD MCKAYLA Judicility:D4Uvimf: 02-20-2022 End: 15-98-3292mxchiyahjsHjnsj Tico Other [employer] Other Start: 09-58-1781Qwpcsc outpatient new 45 minutesAbdul QadirFPG NephrologyStart: 02-06-2022 End: 12-67-7367Ubtvmhm encounter procedurePanaomy Mahnaz ARAUZ [facility] Wilfredo start: 01-19-2022 End: 80-10-6254jfvtcjxactKGQB VALENZUELA .Facility:Z5Oxuuk: 12-24-2021 End: 39-13-8831kljlqgbysjXBUFI PARKERFacility:N9Ajaqx: 08-26-2020 End: 90-54-0786Cpbmcxa encounter procedureVITHAL SHENDGEFacility:UTMCStart: 10-30-2019 End: 56-71-5354Cjeekcrxp department patient visitDOWrentham Developmental Centertart: 10-30-2019 End: 72-84-8267Qxnjaresa department patient visitKettering Health [facility] Township Emergency DepartmentStart: 81-98-3563Tbqjirfaiqrn stateAbdul Tico Other rt [employer] Other Procedures DateProcedureProcedure DetailPerforming ClinicianStart: 00-88-6970FK ECHO DOPPLER COMPLETEGeneric External Data ProviderStart: 74-89-1226Ddcg bld gluc mntr dev cleared fda spec home useAhart Souza MD Work Phone: Start: 41-40-9962HSDVF CULTURE 2Generic External Data ProviderStart: 52-73-6543RZCFZ CULTURE 1Generic External Data ProviderStart: 56-58-0733Znsm bld gluc mntr dev cleared fda spec home useRain Souza MD Work Phone: Start: 18-39-8690ZDI UA (CLEAN/CATCH) MICROSCOPIC IF INDICATELisa Wan NUT DEHYDRATOR OPERATOR Work Phone: Start: 70-22-8633OBL CBC WITH AUTO DIFFGeneric External Data ProviderStart: 19-31-7562Geiv bld gluc mntr dev cleared fda spec home useAhmad F Libby MD Work Phone: Start: 56-25-8394ED LUMBAR SPINE WO CONGeneric External Data ProviderStart: 56-70-9952DU ABDOMEN PELVIS W CONGeneric External Data ProviderStart: 47-94-7022SIK CREATININEGeneric External Data ProviderStart: 68-53-3410KKYTWPONG BLOOD PRESSUREGeneric External Data ProviderStart: 44-24-3649MY TOMOSYNTHESIS SCREENING Chyna Blas NP Work Phone: Start: 34-17-8580XkysaicackcKnpip Sabbagh MD Work Phone: Start: 36-97-0980WEBVH CULTURE 2Generic External Data ProviderStart: 16-57-6262RWKPI CULTURE 1Generic External Data ProviderStart: 46-32-5848LDC 12-LEADAmy Cari MAYERS Work Phone: Start: 84-13-8915PkrxrmxqrljRzvo Aichholz NP Work Phone: Start: 39-90-6546Plhjqiinjhq observation [Identifier] in Cervix by Cyto stainMckayla Blas NUT DEHYDRATOR OPERATOR Work Phone: H/O: hysterectomyPatrick ARAUZ Laparoscopic cholecystectomyPatrick ARAUZ Operative procedure on footPatrick ARAUZ Plan of Treatment DateCare ActivityDetailAuthorStart: 02-01-2026 End: 55-02-7470Ascuayu encounter procedureNOMS CWM FMStart: 07-21-2026Medicare Annual Wellness (AWV)Medicare Annual Wellness (AWV)NOMS HealthcareStart: 45-17-2383Nnzhl screening for proteinDiabetes: Urine Protein ScreeningNOMS HealthcareStart: 28-53-8615Mvjjbsvyx for malignant neoplasm of colonNOMS HealthcareStart: 44-55-6760Hivxvhbv screeningDiabetes: Retinopathy ScreeningNOMS HealthcareStart: 05-28-2025 End: 27-74-5637Ycmorbl encounter procedureNOMS ENDOCRINOLOGYStart: 05-13-2025 Glaucoma screeningDiabetes: Retinopathy ScreeningNOKS HealthcareStart: 71-96-3248Bocvvrjbdl A1c measurementDiabetes: Hemoglobin E9VDVLIKindred Hospital Start: 04-29-2025 End: 27-11-8926Ucetqkn encounter procedureNODUNCAN [facility] FMStart: 66-56-2850Ydsdoiwvn vaccinationNOKS HealthcareStart: 01-28-2025 End: 72-80-8177Vcidywo encounter fsmgxlmgu66/23/2025 10:50 AM EDT Office Visit [facility] [address] [place] [address] Rain Souza MD [address] [place] [address] [facility] ENDOCRINOLOGYStart: 01-26-2025 End: 82-21-9675Knfutdg encounter aqtowvegy58/21/2025 6:00 PM EDT Office Visit [facility] [address] [place] [address] Mckayla Blas, NUT DEHYDRATOR OPERATOR [address] [place] [address] [facility] FMStart: 07-11-2025Medicare Annual Wellness (AWV) Medicare Annual Wellness (AWV)[facility] HealthcareStart: 88-22-4378Sqesigwoaa A1c measurementDiabetes: Hemoglobin R3QUPXHKindred HospitalStart: 12-15-2024 End: 50-16-3560FT Breast - bilateral ScreeningBilateral screening mammogram Imaging Routine Encounter for screening mammogram for malignant neoplasm of breast Expected: 12/15/2024 (Approximate), Expires: 12/27/2025[facility] Work Phone: Comment on above:Expected: 12/15/2024 (Approximate), Expires: 12/27/2025Start: 00-63-5744Ttanacist for malignant neoplasm of breast MammogramKindred HospitalStart: 33-51-1241Gaits screening for proteinDiabetes: Urine Protein ScreeningNOKS HealthcareStart: 10-27-2024 End: 54-10-5049Itpmfyr encounter gcfjcqijk20/21/2025 2:00 PM EDT Office Visit [facility] [address] [place] [address] Mckayla Blas, NUT DEHYDRATOR OPERATOR [address] [place] [address] [facility] FMStart: 10-08-2024 End: 31-97-0154Dgmipvz encounter iekomzplf25/02/2025 11:20 AM EDT Office Visit [facility] [address] [place] [address] Rain Souza MD [address] [place] [address] NOMS ENDOCRINOLOGYStart: 08-27-2024 End: 31-34-1739Xelyjbk encounter uzteiywgx77/19/2025 5:30 PM EST Office Visit [facility] [address] [place] [address] Mckayla Blas, NUT DEHYDRATOR OPERATOR [address] [place] [address] [facility] FMStart: 08-27-2024 End: 840227-lwfkwjlvlvjtgx D3 [Mass/volume] in Serum or PlasmaVitamin D 25 hydroxy Lab Routine Vitamin deficiency Expected: 08/27/2024 (Approximate), Expires: 08/27/2025NOKS HealthcareComment on above:Expected: 08/27/2024 (Approximate), Expires: 08/27/2025Start: 41-63-7302Guhlvriewm A1c measurement Diabetes: Hemoglobin F3ITCECKindred HospitalStart: 08-27-2024 End: 15-85-1398Uxzbdve function 2000 panel - Serum or PlasmaHepatic function panel Lab Routine Hyperlipidemia, unspecified ([facility]/HCC) Expected: 08/27/2024 (Approximate), Expires: 08/27/2025[facility] HealthcareComment on above:Expected: 08/27/2024 (Approximate), Expires: 08/27/2025Start: 08-27-2024 End: 33-41-2527Cxahg 1996 panel - Serum or PlasmaLipid panel Lab Routine Mixed hyperlipidemia (CMS/HCC) Expected: 08/27/2024 (Approximate), Expires:08/27/2025 [facility] Healthcare Work Phone: Comment on above:Expected: 08/27/2024 (Approximate), Expires: 08/27/2025Start: 08-27-2024 End: 72-46-7437Sqhuofkwbvym/Creatinine panel in random UrineMicroalbumin / creatinine, urine ratio Lab Routine Primary hypertension (CMS/HCC) Type 2 diabetes mellitus with complication, with long-term current use of insulin ([facility]/HCC) Expected: 08/27/2024 (Approximate), Expires: 08/27/2025[facility] Healthcare Comment on above:Expected: 08/27/2024 (Approximate), Expires: 08/27/2025Start: 08-27-2024 End: 89-13-8376Yvfpc [Mass/volume] in Serum or PlasmaUric acid Lab Routine Gout, unspecified cause, unspecified chronicity, unspecified site Expected: (Approximate), Expires: 08/27/2025[facility] HealthcareComment on above: Expected: 08/27/2024 (Approximate), Expires: 08/27/2025Start: 08-27-2024 End: 14-31-4514Qnmruuwkdx complete panel - UrineUrinalysis with reflex microscopic (clean catch) Lab Routine Primary hypertension ([facility]/HCC) Type 2 d iabetes mellitus with complication, with long-term current use of insulin ([facility]/HCC) Tobacco user Gout, unspecified cause, unspecified chronicity, unspecified site Expected: 08/27/2024 (Approximate), Expires: 08/27/2025[facility] HealthcareComment on above:Expected: 08/27/2024 (Approximate), Expires: 08/27/2025Start: 08-26-2024 End: 25-05-7393Qpmxuqc encounter ghmejntvf65/18/2025 10:30 AM EST Office Visit [facility] [address] [place] [address] Rain Souza MD [address] [place] [address] [facility]Start: 07-14-2024 End: 70-67-6628Mraniax encounter dydikctwn84/06/2025 6:30 PM EST Office Visit [facility] [address] [place] [address] Mckayla Blas, NUT DEHYDRATOR OPERATOR [address] [place] [address] [facility] FMStart: 07-14-2024 End: 33-85-0836Yfykgxm encounter gchrrcbhe47/06/2025 10:10 AM EST Office Visit [facility] [address] [place] [address] Rain Souza MD [address] [place] [address] [facility] ENDOCRINOLOGYStart: 49-97-4286Ouyzsseot vaccinationInfluenza Vaccine (#1)NOMS HealthcareComment on above:Postponed from 03/09/2024 (Patient Refused)Start: 05-27-2024 End: 10-98-2729Rvvavsd encounter ehfiygzqu15/19/2024 9:50 AM EST Office Visit [facility] [address] [place] [phone] Rain Souza MD [address] [place] [address] [facility] ENDOCRINOLOGYStart: 04-44-9646Bniouijcnc A1c measurementDiabetes: Hemoglobin L3SJTSF HealthcareStart: 05-15-2024 End: 40-97-5124Xhtzs abksnweqdra39/07/2024 Abstract [facility] [address] [place] [address] Rain Souza MD [address] [place] [address] [facility]Start: 05-15-2024 End: 79-70-4548Jltejzx encounter heodhniha06/07/2024 11:20 AM EST Office Visit [facility] [address] [place] [address] Rain Souza MD [address] [place] [address] [facility] ENDOCRINOLOGYStart: 04-17-2024 End: 68-17-6030Dngedzw encounter xserdxgho58/10/2024 3:40 PM EDT Office Visit [facility] [address] [place] [address] Mckayla Blas, NUT DEHYDRATOR OPERATOR [address] [place] [address] NOMHenna [facility] FMStart: 04-14-2024 End: 20-02-8026Knnonqo encounter bulibpoxw47/07/2024 11:00 AM EDT Office Visit [facility] [address] [place] [address] Mckayla Blas, NUT DEHYDRATOR OPERATOR [address] [place] [address] ArrivedNODUNCAN REGION[facility] FMComment on above:ArrivedStart: 03-09-2024 Influenza vaccinationInfluenza Vaccine (#1)NOMS HealthcareStart: 02-19-2024 Hemoglobin A1c measurementDiabetes: Hemoglobin Z2XGATL HealthcareStart: 13-77-5231Jlfks screening for proteinDiabetes: Urine Protein ScreeningNOKS HealthcareStart: 22-62-5671Vyajsungu for malignant neoplasm of breastMammogram [facility] HospitalStart: 10-15-2023 End: 09-47-1511Xnripha encounter vtyqhstol31/08/2024 4:30 PM EDT Office Visit [facility] [address] [place] [address] Mckayla Blas, SILVANO [address] [place] [address] [facility] FMStart: 19-44-6136Eguvfuhpbm A1c measurement Diabetes: Hemoglobin P4DNJCC HealthcareStart: 84-66-3277Bhpytafj screening Diabetes: Retinopathy ScreeningNOKS HealthcareStart: 28-62-9003Zrxfdagee vaccinationFlu vaccine (Season Ended)[facility]: 10-07-2018 Screening for malignant neoplasm of cervixNOKS HealthcareStart: 65-66-9746Avfdk panelLipid screenSuburban [facility] & [facility]: 45-91-6914Hpamdnnwy for malignant neoplasm of cervixHPV/CotestNOKS HealthcareStart: 68-75-3208Eqwyvtqsg for malignant neoplasm of cervixCervical cancer [facility]: 36-24-0042QZxV/Tdap/Td vaccine (1 - Tdap)DTaP/Tdap/Td vaccine (1 - Tdap)[facility]: 95-58-8391UAF screeningHIV [facility]: 02-17-1971Medicare Annual Wellness (AWV)Medicare Annual Wellness (AWV)[facility] HealthcareStart: 26-25-8632Ujpexwapi for malignant neoplasm of colonNOMS HealthcareBLOOD CULTURE 1BLOOD CULTURE 1 Lab Routine 12/04/2024 4:44 PM EDTNOKS HealthcareBLOOD CULTURE 2BLOOD CULTURE 2 Lab Routine 12/04/2024 5:28 PM EDTNOKS Healthcare Immunizations Immunization DateImmunizationNotesCare QttnagueKdrkbglg28-08-0089swpjcbhgn, injectable, quadrivalent, contains preservativeLisa Aichholz NUT DEHYDRATOR OPERATOR Work Phone: NOLee's Summit HospitalCczxygaxxt40-18-8894jsnssewfa virus vaccine, unspecified formulationRain Souza MD Work Phone: [facility]01-11-2022SARS-CoV-2 (COVID-19) mRNA BNT-162b2 vaxJENNIFER SILVIA [facility]04-22-2021SARS-CoV-2 (COVID-19) mRNA BNT-162b2 vaxJENNIFER SILVIA [facility]04-02-2021SARS-CoV-2 (COVID-19) mRNA BNT-162b2 vaxJENNIFER SILVIA [facility]10-09-2017influenza virus vaccine, H5N1, A/ (national stockpile)Mckayla Blas NUT DEHYDRATOR OPERATOR Work Phone: Kindred HospitalSpunaozypk64-48-6061gulqufnvu virus vaccine, unspecified formulationRain Souza MD Work Phone: NOLee's Summit [id number], unspecified formulationPounce [facility] [place] 392490-09-2017pneumococcal polysaccharide vaccine, 23 Morgan Souza MD Work Phone: noLee[facility] Summit [id number] virus vaccine, H5N1, A/ (national stockpile)Mckayla Blas NUT DEHYDRATOR OPERATOR Work Phone: noLee's Summit HospitalPdevhofiyd12-17-2440uqwlunekd virus vaccine, unspecified formulationRain Souza MD Work Phone: noLee's Summit [id number], unspecified formulationPatrick [employer] [facility]2013influenza virus vaccine, whole virusRain Souza MD Work Phone: [facility] [id number], injectable, quadrivalent, contains preservativeLisa Aichholz NUT DEHYDRATOR OPERATOR Work Phone: [facility] [id number], wholePatrick ARAUZ [facility]1998measles, mumps and rubella virus vaccineRain Souza MD Work Phone: [facility] Healthcare Payers DatePayer CategoryPayerPolicy [id number] 2024Medicare (Managed Care)[id number] Health [id number]3-7502Xnkhxrv [id number] 2019[place]icaid[place] [id number] 2018-Present [phone] [address] [place] [address]Medicaid [id number] 2013Medicare [id number] 2.16.840.1.136202.3.57[id number] 2..840.1.630557.3.57[id number] 2.16.840.1.519432.3.57[id number] 2..840.1.902185.3.57[id number] 2..840.1.559726.3.57[id number] 2..840.1.568392.3.57[id number] 2.840.1.485445.3.57[id number] 2.840.1.052890.3.57[id number] 2.840.1.346590.3.57[id number] 2.840.1.426564.3.57[id number] 2.840.1.166213.3.57[id number] 2.840.1.844723.3.57[id number] 2.840.1.097644.3.57[id number] 2.840.1.676647.3.579.[id number] 2.840.1.197706.3.57[id number] 2.840.1.161049.3.57[id number] 2..840.1.863530.3.57[id number] 2.840.1.214836.3.57[id number] 2.840.1.061931.3.579.[id number] 2.16.840.1.285672.3.57[id number] 2.840.1.487297.3.579.[id number] 2.840.1.486860.3.57[id number] 2.840.1.342788.3.57[id number] 2.840.1.956560.3.57[id number] 2.0.1.569038.3.579.2.7[id number] 2.0.1.764766.3.57[id number] 2.840.1.425618.3.57[id number] 2.0.1.384385.3.579.2.[id number] 2..1.975364.3.579.2.132008-63-1119Pdylvqi0347518 2.0.1.772698.3.579.[id number] 2.840.1.399855.3.57[id number] 2.840.1.667062.3.57[id number] 2..840.1.589141.3.579.2.[id number] 2..840.1.108719.3.579.2.[id number] 2.16.840.1.367073.3.579.[id number] 2..840.1.602761.3.579.2.[id number] 2..840.1.780707.3.57[id number] 2..840.1.639944.3.579.[id number] 2..0.1.520875.3.579.2.771[id number] 2..840.1.934351.3.57[id number] 2..840.1.919515.3.579.2.196 [id number] 1960Private Health [id number] 2.0.1.383427.19 [id number] [id number] Health InsuranceSt. Francis [id number] Auto/[id number] Social History DateTypeDetailFacilityStart: 02-17-2014 End: 61-54-6102Qzoivvw smoking status NHISCurrent every day smokerSub[facility]: 23-15-8943Mtzojbw of tobacco useCigarette SmokerSub[facility] Hospital & [facility]: 02-17-2014 End: 32-91-8589Izgohlarxd smoked current (pack per day) - ReportedSuburban Community Hospital & [facility]: 10-07-2407Ffsfiug intakeCurrent drinker of alcohol (finding)[facility]: 06-55-8445Iayjfry CommentRareMCrystal Clinic Orthopedic Center: 87-44-5599Pvr Assigned At BirthNot on fileLockport, KYExposure to SARS-CoV-2 (event)Unable to assessSuburban Community Hospital & [facility]: 58-72-9965Usmgxpu smoking statusSmoker (finding)[facility] start: 07-10-2023 End: 50-95-8700Zfo Assigned At BirthFemaleExec[facility] start: 11-15-2022 End: 81-31-3557Csqjqfz smoking statusHeavy tobacco smoker (finding)[facility]: 07-10-2023 End: 16-61-3829Ghbqawf use and exposureSmokeless tobacco non-userN[facility] Healthcare Start: 07-10-2023 End: 63-07-1117Zsgzxdi intakeLifetime non-drinker (finding)[facility] HealthcareWithin the last year, have you been afraid of your partner or ex-partner?NoNOMS HealthcareDo you belong to any clubs or organizations such as zoroastrian groups, unions, fraternal [...] drinks on 1 occasion?Less than monthlyNOMS HealthcareStart: 04-67-4961Zpi hard is it for you to pay for the very basics like food, housing, medical care, and heatingNot hard at allLONE PEAK [facility] HealthcareDo you feel stress - tense, [...] from your doctor or pharmacy [SILS]RarelyNOMS HealthcareSexFemale (finding)[facility] Start: 21-81-2102Xtj [facility]NEGATED: Highlighted [facility] Medical Equipment Procedure CodeEquipment CodeEquipment Original TextEquipment IdentifierDates [id number]: 91-34-6538KGN TO TEST BLOOD SUGAR 4 TIMES [id number]: 07-07-2024 Functional Status GegaRbqgohhabwRanctxGccvifrv59-92-0523Uvxyjtz Health Questionnaire 2 item (PHQ- 2) [Reported][facility] HospitalYgrhzxbvxk62-98-1507Vogjavr falling or staying asleep, or sleeping too muchNot at all 01/26/2025 4:13 PM EDT Mychart, Generic Not at all [facility] HospitalBlhmmlrdkk28-10-4295Fdiywre tired or having little energyNot at all 01/26/2025 4:13 PM EDT Mychart, Generic Not at allKindred HospitalCtiaauhujb72-64-2829Wsok appetite or overeatingNot at all 01/26/2025 4:13 PM EDT Mychart, Generic Not at [facility] HospitalUyybumuglj85-89-5695Zyqvqdo bad about yourself-or that you are a failure or have let yourself or your family downNot at all 01/26/2025 4:13 PM EDT Mychart, Generic Not at allKindred HospitalPbwjevrjql52-05-2742Btdwufe concentrating on things, such as reading the newspaper or watching televisionNot at all 01/26/2025 4:13 PM EDT Mychart, Generic Not at allKindred HospitalYmxhiltepx58-93-2478 Moving or speaking so slowly that other people could have noticed. Or the opposite - being so fidgety or restless that you have been moving around a lot more than usualNot at all 01/26/2025 4:13 PM EDT Mychart, Generic Not at allKindred HospitalDgwafdkubr54-58-7878Wpxqfheh that you would be better off , or of hurting yourself in some wayNot at all 01/26/2025 4:13 PM EDT Mychart, Generic Not at allKindred HospitalHuwonfmjqq85-09-1047Ntxjr score [AUDIT-C]1 08/26/2024 6:13 PM EST Mychart, GenericKindred HospitalZsflzexbsk61-57-1792Ywo often do you have a drink containing alcohol?Monthly or less 08/26/2024 6:13 PM EST Mychart, Generic Monthly or [facility] HospitalBfhtehvffz89-18-9214Msn many standard drinks containing alcohol do you have on a typical day?1 or 2 08/26/2024 6:13 PM EST Mychart, Generic 1 or 2NOMS Adkabowlxh66-08-7239Yfz often do you have 6 or more drinks on 1 occasion?Never 08/26/2024 6:13 PM EST Mychart, Generic [facility] 09-53-2045Gfbpvxztru StatusN/AExec[facility] of [facility]07-11-2024How difficult have these problems made it for you to do your work, take care of things at home, or get along with other people?Not difficult at all 01/17/2024 10:08 AM Marilyn Dunbar MA Not difficult at [facility] HospitalUxpselawso88-58-1272Hhipbsn Health Questionnaire 2 item (PHQ-2) [Reported][facility] HospitalSbvcogjnxj76-28-6076Caapwzh Health Questionnaire 2 item (PHQ-2) [Reported][facility]red HospitalLkndmfzmpo66-01-7299Czmuaqoxzs StatusN/AExec[facility]08-01-2022Functional StatusN/AExec[facility] Clinical Notes 01-19-2022 to 04-06-2025 Note Date & RharJgpuOtkbkqhm73-91-5520 Evaluation note* Diagnosis Onset Date Resolution Status [...] use ofacuteOctober 2024 5:50pmVenous insufficiencyacuteOctober 2024 5:50pm [facility] Work Phone: 1(530) 658-595207-30-2025 NotePlease let her know her ECHO showed some improvement in the left side wall thickness, it was severely enlarged, now it is moderate. Important for good BP control to continue to improve this. Everything else looks good. Follow-up as planned in 6 months. Thanks![facility]07-24-2025 History of Present illness Narrative* Rain [...] 96, on lantus 58 units bid, lispro 8-83-00lftad plus ISS, Trulicity 4.5 mg weekly. meter give us error during download IM 03/2022 follow up visit on 03/14/2022, A1c in the office 9.4, bg 142, on lantus 58 units bid, lispro 7-95-20ygctf plus ISS, Trulicity 4.5 mg weekly. lab [...] 25 mg, Oral, 2 times daily HYDROcodone-acetaminophen (Aurora) 5-325 MG tablet 1 tablet, 3 times [...] Insomnia 09/17/2023 long-term (current) use of insulin ([facility]) Lower extremity edema 09/17/2023 Mixed hyperlipidemia Morbid (severe) obesity due to excess calories ([facility]) Obstructive sleep apnea 07/10/2023 PAD (peripheral artery disease) 09/17/2023 Pancreatitis ([facility]) 09/17/2023 Pneumonia 09/17/2023 Proteinuria, unspecified [...] Primary hypertension Insulin long-term use ([facility]) Hyperlipemia, mixed Microalbuminuria Class 3 severe obesity due to excess calories with serious comorbidity and body mass index (BMI) of50.0 to 59.9 in adult ([facility]) Diet and exercise reviewed with the patient Follow up in about 4 months (around 06/01/2025). 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 * Mckayla Blas NP [...] 25 mg, Oral, 2 times daily HYDROcodone-acetaminophen (Aurora) 5-325 MG tablet 1 tablet, 3 times [...] Insomnia 09/17/2023 long-term (current) use of insulin ([facility]) Lower extremity edema 09/17/2023 Mixed hyperlipidemia Morbid (severe) obesity due to excess calories ([facility]) Obstructive sleep apnea 07/10/2023 PAD (peripheral artery disease) 09/17/2023 Pancreatitis ([facility]) 09/17/2023 Pneumonia 09/17/2023 Proteinuria, unspecified [...] [facility]) Current meds: albuterol, duoneb, Has receiver setter 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 Hypertension Please check [...] MG tablet Pulmonary hypertension (HCC) Has seen [facility] Cardiology Hyperlipidemia On statin therapy [...] Morbid (severe) obesity due to excess calories ([facility]) Discussed with patient their BMI (actual, verses [...] EDTAssociated Problem(s): Pulmonary hypertension (HCC) Has seen [facility] Cardiology * Mckayla Blas NP [...] on a yearly basis documented in this encounterKindred HospitalWktcgoosse61-07-9106 Instructions* Patient Instructions* Mckayla Blas NP - 01/26/2025 6:00 PM EDT Please call the [facility] to schedule your mammogram: [phone]- ext [phone] documented in this encounterKindred HospitalNmyfdzogts79-67-1199 NoteCardiovascular Medicine [facility] SUBJECTIVE Chief Complaint Patient presents with Congestive Heart Failure Hypertension Hyperlipidemia Mitzi Macias is a 54 y.o. female here for follow-up. PMHx: HFpEF, HTN, HLD, DM, longstanding heavy smoker, COPD, DANIEL, morbid obesity HPI 01/06/2025 Since last seen she was admitted to [facility] for AMS on 12/05/2024. 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 Vitamin D deficiency, unspecified Vitamin deficiency Past Medical History: Diagnosis Date COPD (chronic obstructive pulmonary disease) ([facility]) Diabetes mellitus ([facility]) Hyperlipidemia Hypertension Sleep [...] , Rfl: ergocalciferol (Vitamin D-2) 1.25 MG (74083 Units) capsule, Take 1.25 mg by mouth., [...] and at bedtime., Disp: , Rfl: HYDROcodone-acetaminophen (Aurora) 5-325 mg tablet, TAKE 1 TABLET BY MOUTH THREE TIMES A DAY NEEDED FOR PAIN MUST LAST 30 DAYS, Disp: , Rfl: insulin aspart (NovoLOG) 100 unit/mL (3 mL) injection pen, Novolog Flexpen U-100 Insulin aspart 100 unit/mL (3 mL) subcutaneous, Disp: , Rfl: insulin glargine (Lantus Solostar U-100 Insulin) 100 unit/mL (3 mL) injection pen (more content not included)...[facility]07-01-2025 NotePatient is here today for a [...] and weight gain. Cardiovascular: Positive for leg swelling.[facility] 12-09-2024 History of Present illness Narrative* [...] bad light. She was ultimately taken to [facility] ER, no tox screen was done [...] 25 mg, Oral, 2 times daily HYDROcodone-acetaminophen (Aurora) 5-325 MG tablet 1 tablet, 3 times [...] CT Albuminuria 09/17/2023 Angiomyolipoma Anxiety and depression ([facility]) 07/10/2023 Asthma 07/10/2023 Body mass index (BMI) 50.0-59.9, adult ([facility]) Cellulitis of left lower extremity Cervical cancer ([facility]) 09/17/2023 Chronic pain of both knees 09/17/2023 COPD (chronic obstructive pulmonary disease) ([facility]) 07/10/2023 COPD exacerbation ([facility]) 09/17/2023 Decreased functional mobility 09/17/2023 Diabetic neuropathy ([facility]) 07/10/2023 Dietary counseling and surveillance Edema 07/10/2023 Elevated sed rate Elevated WBC count Essential (primary) hypertension ([facility]) GERD (gastroesophageal reflux disease) 09/17/2023 Hyperlipidemia ([facility]) 09/17/2023 Hypertension ([facility]) 07/10/2023 Insomnia 09/17/2023 long-term (current) use of insulin ([facility]) Lower extremity edema 09/17/2023 Mixed hyperlipidemia ([facility]) Morbid (severe) obesity due to excess calories ([facility]) Obstructive sleep apnea 07/10/2023 PAD (peripheral artery disease) ([facility]) 09/17/2023 Pancreatitis 09/17/2023 Pneumonia 09/17/2023 Proteinuria, unspecified Pulmonary hypertension ([facility]) 09/17/2023 Radiculopathy, lumbar region 09/17/2023 Tobacco user 09/17/2023 Type 2 diabetes mellitus with complication, with long-term current use of insulin ([facility]) 07/10/2023 Unilateral primary [...] Problem List Items Addressed This Visit Hypertension ([facility]) Please check blood pressure daily and record DASH diet Limit caffeine Take medication as directed Contact office if chest pain, pressure, dizziness, shortness of breath, swelling legs Recommend slow position changes Current meds: hydralazine, lisinopril, Type 2 diabetes mellitus with complication, with long-term current use of insulin ([facility]) Check blood sugars [...] secondary to her steroids Anxiety and depression ([facility]) Current meds: elavil, duloxtine, COPD exacerbation ([facility]) Recent ER visit for unresponsiveness , found to have fever and elevated WBC Sent home with steroids and atb Breathing is better and she feels back to her normal baseline Does have home O2, she is not wearing this today Pulmonary hypertension ([facility]) Has seen [facility] Cardiology Morbid (severe) obesity due to excess calories ([facility]) Discussed with patient [...] EDTAssociated Problem(s): Pulmonary hypertension (CMS/HCC) Has seen [facility] Cardiology * Mckayla Blas NP [...] not wearing this today documented in this encounterKindred HospitalZevthvvkyn29-10-6901 Instructions* Patient Instructions* Mckayla Blas NP - 12/09/2024 10:00 AM EDT Keep appt with wound care today Keep fu with me, sooner if needed documented in this encounterKindred HospitalBvinfijxvi64-22-6382 History of Present illness Narrative* Mckayla Blas [...] 25 mg, Oral, 2 times daily HYDROcodone-acetaminophen (Aurora) 5-325 MG tablet 1 tablet, 3 times [...] CT Albuminuria 09/17/2023 Angiomyolipoma Anxiety and depression ([facility]) 07/10/2023 Asthma 07/10/2023 Body mass index (BMI) 50.0-59.9, adult ([facility]) Cellulitis of left lower extremity Cervical cancer ([facility]) 09/17/2023 Chronic pain of both knees 09/17/2023 COPD (chronic obstructive pulmonary disease) ([facility]) 07/10/2023 COPD exacerbation ([facility]) 09/17/2023 Decreased functional mobility 09/17/2023 Diabetic neuropathy ([facility]) 07/10/2023 Dietary counseling and surveillance Edema 07/10/2023 Elevated sed rate Elevated WBC count Essential (primary) hypertension ([facility]) GERD (gastroesophageal reflux disease) 09/17/2023 Hyperlipidemia ([facility]) 09/17/2023 Hypertension ([facility]) 07/10/2023 Insomnia 09/17/2023 long-term (current) use of insulin ([facility]) Lower extremity edema 09/17/2023 Mixed hyperlipidemia ([facility]) Morbid (severe) obesity due to excess calories ([facility]) Obstructive sleep apnea 07/10/2023 PAD (peripheral artery disease) ([facility]) 09/17/2023 Pancreatitis 09/17/2023 Pneumonia 09/17/2023 Proteinuria, unspecified Pulmonary hypertension ([facility]) 09/17/2023 Radiculopathy, lumbar region 09/17/2023 Tobacco user 09/17/2023 Type 2 diabetes mellitus with complication, with long-term current use of insulin ([facility]) 07/10/2023 Unilateral primary [...] List Items Addressed This Visit Diabetic neuropathy (CMS/[facility]) - Primary Continue with cintia hudson mgmt is prescribing OARRS reviewed Fu in 3 months Goal: tighter glucose control, this has been improving, latest A1c is 7.4%!!! Hypertension ([facility]) Please check blood pressure daily and record DASH diet Limit caffeine Take medication as directed Contact office if chest pain, pressure, dizziness, shortness of breath, swelling legs Recommend slow position changes Current meds: hydralazine, lisinopril, Relevant Medications hydrALAZINE (Apresoline) 25 MG tablet lisinopril 20 MG tablet Type 2 diabetes mellitus with complication, with long-term current use of insulin ([facility]) Check blood sugars [...] 81 MG chewable tablet Anxiety and depression ([facility]) Current meds: elavil, duloxtine, Relevant Medications DULoxetine (Cymbalta) [address] capsule Bilateral lower extremity edema Limit sodium , elevate legs, furosemide Relevant Medications furosemide (Lasix) 20 MG tablet potassium chloride ER (Micro-K) 10 MEQ ER capsule furosemide (Lasix) 40 MG tablet Insomnia Relevant Medications amitriptyline (Elavil) 25 MG tablet PAD (peripheral artery disease) ([facility]) Asa, statin Quit [...] Relevant Medications ergocalciferol (Vitamin D2) 1.25 MG (59232 UT) capsule Gastro-esophageal reflux disease without esophagitis [...] complication, with long-term current use of insulin ([facility]) Check blood sugars [...] Morbid (severe) obesity due to excess calories ([facility]) Discussed with patient [...] latest A1c is 7.4%!!! documented in this encounterNathan [place] [id number] Instructions* Patient Instructions* Mckayla Blas NP - 10/27/2024 2:00 PM EDT No dose changes in meds You will be due for mammogram I will send order to [facility], they should call you to schedule If no call, please call [phone] ext [phone] documented in this encounterN[place] [address]Fccufhdmxm72-23-6059 History of Present illness Narrative* Rain Souza [...] 96, on lantus 58 units bid, lispro 4-26-53krkyh plus ISS, Trulicity 4.5 mg weekly. meter give us error during download IM 03/2022 follow up visit on 03/14/2022, A1c in the office 9.4, bg 142, on lantus 58 units bid, lispro 9-16-09pjhct plus ISS, Trulicity 4.5 mg weekly. lab [...] or chew. ergocalciferol (Vitamin D2) 1.25 MG (72128 UT) capsule TAKE 1 CAPSULE BY MOUTH [...] 25 mg, Oral, 2 times daily HYDROcodone-acetaminophen (Aurora) 5-325 MG tablet 1 tablet, 3 times [...] CT Albuminuria 09/17/2023 Angiomyolipoma Anxiety and depression ([facility]) 07/10/2023 Asthma ([facility]) 07/10/2023 Body mass index (BMI) 50.0-59.9, adult ([facility]) Cellulitis of left lower extremity Cervical cancer ([facility]) 09/17/2023 Chronic pain of both knees 09/17/2023 COPD (chronic obstructive pulmonary disease) ([facility]) 07/10/2023 COPD exacerbation ([facility]) 09/17/2023 Decreased functional mobility 09/17/2023 Diabetic neuropathy ([facility]) 07/10/2023 Dietary counseling and surveillance Edema 07/10/2023 Elevated sed rate Elevated WBC count Essential (primary) hypertension ([facility]) GERD (gastroesophageal reflux disease) 09/17/2023 Hyperlipidemia ([facility]) 09/17/2023 Hypertension ([facility]) 07/10/2023 Insomnia 09/17/2023 long-term (current) use of insulin ([facility]) Lower extremity edema 09/17/2023 Mixed hyperlipidemia ([facility]) Morbid (severe) obesity due to excess calories ([facility]) Obstructive sleep apnea 07/10/2023 PAD (peripheral artery disease) ([facility]) 09/17/2023 Pancreatitis 09/17/2023 Pneumonia 09/17/2023 Proteinuria, unspecified Pulmonary hypertension ([facility]) 09/17/2023 Radiculopathy, lumbar region 09/17/2023 Tobacco user 09/17/2023 Type 2 diabetes mellitus with complication, with long-term current use of insulin ([facility]) 07/10/2023 Unilateral primary osteoarthritis, right hip 09/17/2023 [...] hyperglycemia, with long-term current use of insulin ([facility]) - POCT glucose [...] 4 months (around 02/07/2025). documented in this encounterKindred HospitalNipbipwexw24-21-3204 History of Present illness Narrative* Mckayla Blas [...] or chew. ergocalciferol (Vitamin D2) 1.25 MG (70499 UT) capsule TAKE 1 CAPSULE BY MOUTH [...] 25 mg, Oral, 2 times daily HYDROcodone-acetaminophen (Aurora) 5-325 MG tablet 1 tablet, 3 times [...] CT Albuminuria 09/17/2023 Angiomyolipoma Anxiety and depression ([facility]) 07/10/2023 Asthma ([facility]) 07/10/2023 Body mass index (BMI) 50.0-59.9, adult ([facility]) Cellulitis of left lower extremity Cervical cancer ([facility]) 09/17/2023 Chronic pain of both knees 09/17/2023 COPD (chronic obstructive pulmonary disease) ([facility]) 07/10/2023 COPD exacerbation ([facility]) 09/17/2023 Decreased functional mobility 09/17/2023 Diabetic neuropathy ([facility]) 07/10/2023 Dietary counseling and surveillance Edema 07/10/2023 Elevated sed rate Elevated WBC count Essential (primary) hypertension ([facility]) GERD (gastroesophageal reflux disease) 09/17/2023 Hyperlipidemia ([facility]) 09/17/2023 Hypertension ([facility]) 07/10/2023 Insomnia 09/17/2023 long-term (current) use of insulin ([facility]) Lower extremity edema 09/17/2023 Mixed hyperlipidemia ([facility]) Morbid (severe) obesity due to excess calories ([facility]) Obstructive sleep apnea 07/10/2023 PAD (peripheral artery disease) ([facility]) 09/17/2023 Pancreatitis 09/17/2023 Pneumonia 09/17/2023 Proteinuria, unspecified Pulmonary hypertension ([facility]) 09/17/2023 Radiculopathy, lumbar region 09/17/2023 Tobacco user 09/17/2023 Type 2 diabetes mellitus with complication, with long-term current use of insulin ([facility]) 07/10/2023 Unilateral primary osteoarthritis, right hip 09/17/2023 [...] List Items Addressed This Visit Diabetic neuropathy ([facility]) Continue with cintia hudson mgmt is prescribing OARRS reviewed Fu in 3 months Goal: tighter glucose control Hypertension ([facility]) Please check blood [...] complication, with long-term current use of insulin ([facility]) Check blood sugars [...] / creatinine, urine ratio Anxiety and depression ([facility]) - Primary Current [...] PPI Malignant neoplasm of cervix uteri, unspecified ([facility]) Had in the past, had hysterectomy Tobacco user The patient has been advised of the risks of continued smoking: stroke, UT, all forms of cancer, lung disease, and [...] of the risks of continued smoking: stroke, UT, all forms of cancer, lung disease, and [...] Asthma (CMS/HCC) Current meds: albuterol, duoneb, 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 year old female patient being seen for follow-up on diastolic heart failure, shortness of breath and hypertension Patient Active Problem List Diagnosis Abdominal pannus Adrenal mass 1 cm to 4 cm in diameter ([facility]) Albuminuria RAGHU positive Anxiety and depression Arthritis Asthma Bilateral lower extremity edema BMI 50.0-59.9, adult ([facility]) Candidiasis of breast Cardiomegaly Cervical cancer ([facility]) Chronic pain of both knees Closed fracture of upper end of humerus Acute respiratory distress syndrome ([facility]) Decreased functional mobility Diabetic neuropathy ([facility]) Easy bruising GERD (gastroesophageal reflux disease) Gout Headache Hyperlipidemia Hypertension Insomnia Kidney stone Left flank pain Mixed incontinence Class 3 severe obesity with serious comorbidity and body mass index (BMI) of 50.0 to 59.9 in adult ([facility]) Non-seasonal allergic rhinitis Obstructive sleep apnea Other chronic pain PAD (peripheral artery disease) ([facility]) Pneumonia Encounter for screening mammogram for malignant neoplasm of breast Pulmonary hypertension ([facility]) Radiculopathy, lumbar region Current smoker Type 2 diabetes mellitus with complication, with long-term current use of insulin ([facility]) Unilateral primary osteoarthritis, right hip Vaginal yeast infection Venous insufficiency Bad odor of urine Critical limb ischemia of right lower extremity ([facility]) Hyperpigmentation of skin 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 2 diabetes mellitus ([facility]) Myelolipoma of adrenal gland Venous ulcer of right leg ([facility]) HPI Patient was has history of [...] Diagnosis Date COPD (chronic obstructive pulmonary disease) ([facility]) Diabetes mellitus ([facility]) Hyperlipidemia Hypertension Sleep [...] , Rfl: ergocalciferol (Vitamin D-2) 1.25 MG (28978 Units) capsule, Take 1.25 mg by mouth., [...] and at bedtime., Disp: , Rfl: HYDROcodone-acetaminophen (Aurora) 5-325 mg tablet, TAKE 1 TABLET BY [...] SUBCUTANEOUSLY TWICE DAILY, Disp: (more content not included)...[facility]01-06-2025 History of Present illness Narrative* Mckayla [...] pressure and sugar control * Mckayla Blas, NUT DEHYDRATOR OPERATOR - 07/14/2024 6:30 PM EST Images [...] or chew. ergocalciferol (Vitamin D2) 1.25 MG (37841 UT) capsule TAKE 1 CAPSULE BY MOUTH ONE TIME PER WEEK furosemide (LASIX) 40 mg, Oral, Daily furosemide (LASIX) 20 mg, Oral, Daily PRN, Take in the afternoon as needed hydrALAZINE (APRESOLINE) 25 mg, Oral, 2 times daily HYDROcodone-acetaminophen (Aurora) 5-325 MG tablet 1 tablet, 3 times [...] CT Albuminuria 09/17/2023 Angiomyolipoma Anxiety and depression ([facility]) 07/10/2023 Asthma ([facility]) 07/10/2023 Body mass index (BMI) 50.0-59.9, adult ([facility]) Cellulitis of left lower extremity Cervical cancer ([facility]) 09/17/2023 Chronic pain of both knees 09/17/2023 COPD (chronic obstructive pulmonary disease) ([facility]) 07/10/2023 COPD exacerbation ([facility]) 09/17/2023 Decreased functional mobility 09/17/2023 Diabetic neuropathy ([facility]) 07/10/2023 Dietary counseling and surveillance Edema 07/10/2023 Elevated sed rate Elevated WBC count Essential (primary) hypertension ([facility]) GERD (gastroesophageal reflux disease) 09/17/2023 Hyperlipidemia ([facility]) 09/17/2023 Hypertension ([facility]) 07/10/2023 Insomnia 09/17/2023 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 ([facility]) Lower extremity edema 09/17/2023 Mixed hyperlipidemia ([facility]) Morbid (severe) obesity due to excess calories ([facility]) Obstructive sleep apnea 07/10/2023 PAD (peripheral artery disease) ([facility]) 09/17/2023 Pancreatitis 09/17/2023 Pneumonia 09/17/2023 Proteinuria, unspecified Pulmonary hypertension ([facility]) 09/17/2023 Radiculopathy, lumbar region 09/17/2023 Tobacco user 09/17/2023 Type 2 diabetes mellitus with complication, with long-term current use of insulin ([facility]) 07/10/2023 Unilateral primary osteoarthritis, right hip 09/17/2023 [...] List Items Addressed This Visit Diabetic neuropathy ([facility]) Continue with lyrica OARRS reviewed Fu in 3 months COPD (chronic obstructive pulmonary disease) ([facility]) Stable at this time, no changes in meds Encouraged smoking cessation Cont with dr Yañez Hypertension ([facility]) - Primary Please check blood pressure daily and record DASH diet Limit caffeine Take medication as directed Contact office if chest pain, pressure, dizziness, shortness of breath, swelling legs Recommend slow position changes Current meds: hydralazine, lisinopril, Type 2 diabetes mellitus with complication, with long-term current use of insulin ([facility]) Check blood sugars [...] take over prescribing PAD (peripheral artery disease) ([facility]) Asa, statin Quit [...] of the risks of continued smoking: stroke, UT, all forms of cancer, lung disease, and [...] of the risks of continued smoking: stroke, UT, all forms of cancer, lung disease, and [...] complication, with long-term current use of insulin ([facility]) Check blood sugars [...] Fu in 3 months documented in this encounterKindred [id number] Hospital Discharge instructions Patient Education 06/11/2024 10:44:08 [...] require a prescription. You can also purchase yoyx-ubp-teixwxu medicines. Medicines may have nicotine in them [...] and encouragement. Call telephone quitlines, such as 5-834-EBTL-NOW, reach out to support groups, or work [...] provider. Document Revised: 06/16/2022 Document Reviewed: 06/16/2022 [email or web address] Patient Education 2023 Stratus5. 06/11/2024 10:39:22 Dietary Guidelines to Help Prevent [...] include: ?8 oz (237 mL) of milk, mdugrqo-oagjtgmuwayc-oupui milk, and calcium- fortifiedfruit juice. Calcium-fortified means [...] ?Spinach (cooked), rhubarb, beets, sweet potatoes, and Bulgarian chard. ?Peanuts. ?Potato chips, luxembourgish fries, and baked potatoes with skin on. ?Nuts and nut products. ?Chocolate. If you regularly take a diuretic medicine, make sure to eat at least 1 or 2 servings of fruits or vegetables that are high in potassium each day. These include: ?Avocado. ?Banana. ?Atkinson, prune, carrot, or tomato juice. ?Baked potato. [...] magnesium, fish oil, or vitamin B6. Take knxn-npa-xafylee and prescription medicines only as told by [...] Casseroles. Pizza. Lasagna. Frozen meals. Potato chips. Sami fries. The items listed above may not [...] Document Reviewed: 10/05/2022 Elsevier Patient Education 2023 Stratus5. Follow Up Care 05/06/2024 08:24:56 With:REGLA PHIPPS, GEMA Vicente Address: [facility] [address] , [place] [address]- When: Unknown [facility] Ghada 12-04-2024 NotePatient Education Nephrology Dietary Guidelines [...] ? 8 oz (237 mL) of milk, ilcurtw-vtzxlfgxuxgp-bswch milk, and calcium- fortifiedfruit juice. Calcium-fortified means [...] Spinach (cooked), rhubarb, beets, sweet potatoes, and Bulgarian chard. ? Peanuts. ? Potato chips, luxembourgish fries, and baked potatoes with skin on. ? Nuts and nut products. ? Chocolate. ??? If you regularly take a diuretic medicine, make sure to eat at least 1 or 2 servings of fruits or vegetables that are high in potassium each day. These include: ? Avocado. ? Banana. ? Atkinson, prune, carrot, or tomato juice. ? Baked [...] fish oil, or vitamin B6. ??? Take sqvf-umw-yopzces and prescription medicines only as told by your health (more content not included)...[facility]11-19-2024 History of Present illness Narrative* Rain Souza [...] 96, on lantus 58 units bid, lispro [id number] plus ISS, Trulicity 4.5 mg weekly. meter give us error during download IM 03/2022 follow up visit on 03/14/2022, A1c in the office 9.4, bg 142, on lantus 58 units bid, lispro 4-56-37wasgo plus ISS, Trulicity 4.5 mg weekly. lab [...] or chew. ergocalciferol (Vitamin D2) 1.25 MG (25572 UT) capsule TAKE 1 CAPSULE BY MOUTH ONE TIME PER WEEK furosemide (LASIX) 20 mg, Oral, Daily PRN, Take in the afternoon as needed furosemide (LASIX) 40 mg, Oral, Daily Glucose Blood (ACCU-CHEK JAQUI PLUS ) 4 times daily hydrALAZINE (APRESOLINE) 25 mg, Oral, 2 times daily HYDROcodone-acetaminophen (Aurora) 5-325 MG tablet 1 tablet, 3 times [...] X 42 tablet therapy pack TAKED DIRECTED BYGAUTH TWICE DAILY ALLERGIES: No Known Allergies Past Medical History: Diagnosis Date Abnormal chest CT Albuminuria 09/17/2023 Angiomyolipoma Anxiety and depression ([facility]) 07/10/2023 Asthma ([facility]) 07/10/2023 Body mass index (BMI) 50.0-59.9, adult ([facility]) Cellulitis of left lower extremity Cervical cancer ([facility]) 09/17/2023 Chronic pain of both knees 09/17/2023 COPD (chronic obstructive pulmonary disease) ([facility]) 07/10/2023 COPD exacerbation ([facility]) 09/17/2023 Decreased functional mobility 09/17/2023 Diabetic neuropathy ([facility]) 07/10/2023 Dietary counseling and surveillance Edema 07/10/2023 Elevated sed rate Elevated WBC count GERD (gastroesophageal reflux disease) 09/17/2023 Hyperlipidemia ([facility]) 09/17/2023 Hypertension ([facility]) 07/10/2023 Insomnia 09/17/2023 long-term (current) use of insulin ([facility]) Lower extremity edema 09/17/2023 Morbid (severe) obesity due to excess calories ([facility]) Obstructive sleep apnea 07/10/2023 PAD (peripheral artery disease) ([facility]) 09/17/2023 Pancreatitis 09/17/2023 Pneumonia 09/17/2023 Proteinuria, unspecified Pulmonary hypertension ([facility]) 09/17/2023 Radiculopathy, lumbar region 09/17/2023 Tobacco user 09/17/2023 Type 2 diabetes mellitus with complication, with long-term current use of insulin ([facility]) 07/10/2023 Unilateral primary osteoarthritis, right hip 09/17/2023 [...] hyperglycemia, with long-term current use of insulin ([facility]) - POCT glucose manually resulted - POCT glycosylated hemoglobin (Hb A1C) docked device We will continue with Lantus 58, lispro 02/16/12 according to meal size, Mounjaro 15 mg once weekly, Farxiga 5 mg once a day Encounter for dietary consultation Vitamin D deficiency Primary hypertension ([facility]) To follow with her PCP Insulin long-term use ([facility]) Hyperlipemia, mixed ([facility]) Continue with Zocor 10 mg once daily Microalbuminuria Class 3 severe obesity due to excess calories with serious comorbidity and body mass index (BMI) of50.0 to 59.9 in adult ([facility]) Diet and exercise reviewed with the patient Follow up in about 3 months (around 08/27/2024). documented in this encounterKindred [id number] History of Present illness Narrative* Mckayla Blas NP - 04/14/2024 11:45 AM EDTAssociated Problem(s): Hyperpigmentation of skin Will try cerevue ointment to see if helps * Mckayla Blas NP - 04/14/2024 11:43 AM EDTAssociated Problem(s): Tobacco user Urged to quit * Mckayla Blas NP - 04/14/2024 11:43 AM EDTAssociated Problem(s): Type 2 diabetes mellitus with complication, with long-term current use of insulin ([facility]) Check blood sugars [...] being taken. 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 Hypertension This [...] or chew. ergocalciferol (Vitamin D2) 1.25 MG (84484 UT) capsule TAKE 1 CAPSULE BY MOUTH ONE TIME PER WEEK furosemide (LASIX) 20 mg, Oral, Daily PRN, Take in the afternoon as needed furosemide (LASIX) 40 mg, Oral, Daily Glucose Blood (ACCU-CHEK JAQUI PLUS ) 4 times daily HumaLOG KWIKPEN 100 UNIT/ML injection Subcutaneous hydrALAZINE (APRESOLINE) 25 mg, Oral, 2 times daily HYDROcodone-acetaminophen (Aurora) 5-325 MG tablet 1 tablet, 3 times [...] CT Albuminuria 09/17/2023 Angiomyolipoma Anxiety and depression ([facility]) 07/10/2023 Asthma ([facility]) 07/10/2023 Cellulitis of left lower extremity Cervical cancer ([facility]) 09/17/2023 Chronic pain of both knees 09/17/2023 COPD (chronic obstructive pulmonary disease) ([facility]) 07/10/2023 COPD exacerbation ([facility]) 09/17/2023 Decreased functional mobility 09/17/2023 Diabetic neuropathy ([facility]) 07/10/2023 Edema 07/10/2023 Elevated sed rate Elevated WBC count GERD (gastroesophageal reflux disease) 09/17/2023 Hyperlipidemia ([facility]) 09/17/2023 Hypertension ([facility]) 07/10/2023 Insomnia 09/17/2023 Lower extremity edema 09/17/2023 Obstructive sleep apnea 07/10/2023 PAD (peripheral artery disease) ([facility]) 09/17/2023 Pancreatitis 09/17/2023 Pneumonia 09/17/2023 Pulmonary hypertension ([facility]) 09/17/2023 Radiculopathy, lumbar region 09/17/2023 Tobacco user 09/17/2023 Type 2 diabetes mellitus with complication, with long-term current use of insulin ([facility]) 07/10/2023 Unilateral primary osteoarthritis, right hip 09/17/2023 [...] List Items Addressed This Visit Diabetic neuropathy ([facility]) Continue with lyrica OARRS reviewed Fu in 3 months Relevant Medications pregabalin (Lyrica) 300 MG capsule COPD (chronic obstructive pulmonary disease) ([facility]) - Primary Stable at this time, no changes in meds Encouraged smoking cessation Cont with dr Yañez Hypertension ([facility]) Stable on current meds Refill meds Relevant Medications hydrALAZINE (Apresoline) 25 MG tablet lisinopril 20 MG tablet Type 2 diabetes mellitus with complication, with long-term current use of insulin ([facility]) Check blood sugars [...] Roflumilast 500 MCG tablet documented in this encounterKindred [id number] Hospital Discharge instructions Patient Education 11/15/2022 14:09:21 [...] include: ?8 oz (237 mL) of milk, vvmmncq-bxnjouszqukj-gqerc milk, and calcium- fortifiedfruit juice. Calcium-fortified means [...] ?Spinach (cooked), rhubarb, beets, sweet potatoes, and Bulgarian chard. ?Peanuts. ?Potato chips, luxembourgish fries, and baked potatoes with skin on. ?Nuts and nut products. ?Chocolate. If you regularly take a diuretic medicine, make sure to eat at least 1 or 2 servings of fruits or vegetables that are high in potassium each day. These include: ?Avocado. ?Banana. ?Atkinson, prune, carrot, or tomato juice. ?Baked potato. [...] magnesium, fish oil, or vitamin B6. Take koto-hkq-gemrtgp and prescription medicines only as told by [...] Casseroles. Pizza. Lasagna. Frozen meals. Potato chips. Sami fries. The items listed above may not [...] provider. Document Revised: 03/06/2022 Document Reviewed: 03/06/2022 [email or web address] Patient Education 2022 Stratus5. Follow Up Care 02/06/2022 11:44:09 With:GAVIOTA ADAMES PA-C, URL Address: [address] [address] When: Unknown [facility] 02-16-2023 NoteCONSULTATION CONSULTATION DATE: 08/24/2022 HISTORY OF [...] We maintain her on pain medication with Aurora 5/325 t.i.d., diclofenac 75 mg b.i.d. Her [...] her at this point. A refill for Aurora 5/325 t.i.d. and diclofenac 75 mg b.i.d. will be sent to the pharmacy. Vitamin compliance and nutrition were discussed and enforced. I did highly encourage her to use exercise bands to increase the strength in her lower extremities. We will see her in three months' time, unless otherwise indicated, and patient agrees.[facility] [id number] NoteCONSULTATION CONSULTATION DATE: 05/11/2022 This 51-year-old female [...] 150. Medications include Lyrica 300 mg b.i.d., Aurora 5/325 t.i.d., diclofenac 75 mg b.i.d. and [...] her medications today. We will maintain Lyrica, Aurora and diclofenac at the set dose and frequency. We will follow-up in the clinic in three months' time. The patient is in agreement to this. Vitamin importance and nutrition were discussed.[facility] [id number] NoteCONSULTATION CONSULTATION DATE: 04/20/2022 HISTORY OF PRESENT [...] medications include Tylenol, Lyrica 300 mg b.i.d., Aurora 5/325 t.i.d., amitriptyline, diclofenac and duloxetine. Patient's [...] will be followed up in the clinic.[facility] [id number] Evaluation note* Encounter Date Diagnosis Assessment Notes [...] to the DANIEL. Thrombocytopenia is unclear etiology. [facility] Other 08-15-2022 Evaluation note* Encounter Date Diagnosis [...] follow with Dr. Souza and Dr. Arauz. [facility] Other 08-01-2022 Hospital Discharge instructions Patient Education [...] fried and sweet foods. General instructions Take ppdw-buv-rumuely and prescription medicines only as told by [...] 04/21/2010 Document Revised: 10/16/2019 Document Reviewed: 07/11/2018 [email or web address] Patient Education 2020 Stratus5. Follow Up Care 01/05/2022 12:02:03 With:REGLA PHIPPS, Elbert Joya, URL Address: [facility] [address] , [place] [address] [phone] When:Within 6 Month(s) Comments:w/ repeat CT A/P [facility] 07-14-2022 NoteCONSULTATION PROCEDURE DATE: 01/19/2022 PRE [...] pattern and the patient tolerated it well. [facility] Signed and Approved by: GIL VALENZUELA . 01/27/2022 14:15:00[facility]07-14-2022 NoteCONSULTATION CONSULTATION DATE: 01/19/2022 This [...] today. Medications include Lyrica 300 mg b.i.d., Aurora 5/325 t.i.d., diclofenac 75 mg b.i.d. and [...] Approved by: GIL VALENZUELA . 01/27/2022 14:15:00[facility] Future Appointments Appointment Date:08/14/2022 09:15:00 AM Scheduled Provider:Elbert ARAUZ MD Location:[facility] Appointment Type:URO Office Visit [facility] evaluation + Plan note Future Appointments Appointment Date:04/22/2024 10:00:00 AM Scheduled Provider:GAVIOTA ADAMES PA-C Location:[facility] Appointment Type:URO Office Visit [facility] evaluation note* Diagnosis Type 2 diabetes mellitus [...] with unspecified complications (CMS/HCC) Anxiety and depression ([facility]) Gastro-esophageal reflux disease without esophagitis Edema, unspecified Edema Diabetic polyneuropathy associated with type 2 diabetes mellitus ([facility]) Chronic obstructive pulmonary disease, unspecified ([facility]) Pulmonary emphysema, unspecified emphysema type ([facility]) Bilateral lower extremity edema Tobacco user Tobacco use disorder Hyperpigmentation of skin Other dyschromia documented in this encounter [facility] HealthcareEvaluation note* Diagnosis Obstructive sleep apnea- Primary Obstructive sleep apnea (adult) (pediatric) Pulmonary emphysema, unspecified emphysema type ([facility]) Primary hypertension ([facility] [facility] Unspecified essential hypertension Type 2 diabetes mellitus with complication, with long-term current use of insulin ([facility]) Anxiety and depression ([facility]) Bilateral lower extremity edema Pulmonary emphysema, unspecified emphysema type ([facility])- Primary Primary hypertension ([facility]) Unspecified essential hypertension Class 3 severe obesity with serious comorbidity and body mass index (BMI) of 50.0 to 59.9 in adult,unspecified obesity type ([facility]) Obstructive sleep apnea Obstructive sleep apnea (adult) (pediatric) Pulmonary hypertension ([facility]) Other chronic pulmonary heart diseases Tobacco user Tobacco use disorder Cardiomegaly Primary hypertension ([facility])- Primary Unspecified essential hypertension Gastroesophageal reflux disease, unspecified whether esophagitis present Type 2 diabetes mellitus with complication, with long-term current use of insulin ([facility]) Mixed hyperlipidemia ([facility]) Mixed hyperlipidemia Tobacco user Tobacco use disorder Encounter for screening mammogram for malignant neoplasm of breast Chronic obstructive pulmonary disease, unspecified ([facility]) Other specified chronic obstructive pulmonary disease ([facility]) Anxiety and depression ([facility]) Edema, unspecified Edema Hyperlipidemia, unspecified ([facility]) Diabetic polyneuropathy associated with type 2 diabetes mellitus ([facility]) Gout, unspecified cause, unspecified chronicity, unspecified site Non-seasonal allergic rhinitis, unspecified trigger Bilateral lower extremity edema COPD exacerbation ([facility]) Obstructive chronic bronchitis with exacerbation Pulmonary emphysema, unspecified emphysema type ([facility]) Venous insufficiency Unspecified venous (peripheral) insufficiency Candidiasis of breast COPD exacerbation ([facility])- Primary Obstructive chronic bronchitis with exacerbation Pulmonary hypertension ([facility]) Other chronic pulmonary [...] depressive disorder, single episode, mild ([facility]) (CMS/[facility]) Major depressive disorder, single episode, mild Non-pressure chronic ulcer of other part of left lower leg with fat layer exposed (CMS/[facility]) Chronic respiratory failure, unspecified whether with hypoxia or hypercapnia ([facility]) Disorder of adrenal gland, unspecified (CMS/HCC) [...] and depression ([facility]) Gastro-esophageal reflux disease without esophagitis Edema, unspecified Edema Diabetic polyneuropathy associated with type 2 diabetes mellitus (CMS/HCC) Chronic obstructive pulmonary disease, unspecified (CMS/HCC) Pulmonary emphysema, unspecified emphysema type (CMS/HCC) Bilateral lower extremity edema Tobacco user Tobacco use disorder Hyperpigmentation of skin Other dyschromia Type 2 diabetes mellitus with hyperglycemia, with long-term current use of insulin ([facility])- Primary Encounter for dietary consultation Vitamin D deficiency Primary hypertension (CMS/HCC) Unspecified essential hypertension Insulin long-term use ([facility]) Encounter for long-term (current) use of insulin Hyperlipemia, mixed (CMS/HCC) Mixed hyperlipidemia Microalbuminuria Proteinuria Class 3 severe obesity due to excess calories with serious comorbidity and body mass index (BMI) of50.0 to 59.9 in adult ([facility]) documented in this encounter [facility]* Diagnosis Hyperlipidemia, unspecified ([facility]) Bilateral lower extremity edema documented in this encounter [facility]* Diagnosis Vitamin D deficiency, unspecified documented in this encounter [facility]* Diagnosis Obstructive sleep apnea- Primary Obstructive sleep apnea (adult) (pediatric) Pulmonary emphysema, unspecified emphysema type ([facility]) Primary hypertension ([facility]) Unspecified essential hypertension Type 2 diabetes mellitus with complication, with long-term current use of insulin ([facility]) Anxiety and depression ([facility]) Bilateral lower extremity edema Pulmonary emphysema, unspecified emphysema type ([facility])- Primary Primary hypertension ([facility]) Unspecified essential hypertension Class 3 severe obesity with serious comorbidity and body mass index (BMI) of 50.0 to 59.9 in adult,unspecified obesity type ([facility]) Obstructive sleep apnea Obstructive sleep apnea (adult) (pediatric) Pulmonary hypertension ([facility]) Other chronic pulmonary heart diseases Tobacco user Tobacco use disorder Cardiomegaly Primary hypertension ([facility])- Primary Unspecified essential hypertension Gastroesophageal reflux disease, unspecified whether esophagitis present Type 2 diabetes mellitus with complication, with long-term current use of insulin ([facility]) Mixed hyperlipidemia ([facility]) Mixed hyperlipidemia Tobacco user Tobacco use disorder Encounter for screening mammogram for malignant neoplasm of breast Chronic obstructive pulmonary disease, unspecified ([facility]) Other specified chronic obstructive pulmonary disease ([facility]) Anxiety and depression ([facility]) Edema, unspecified Edema Hyperlipidemia, unspecified ([facility]) Diabetic polyneuropathy associated with type 2 diabetes mellitus ([facility]) Gout, unspecified cause, unspecified chronicity, unspecified site Non-seasonal allergic rhinitis, unspecified trigger Bilateral lower extremity edema COPD exacerbation ([facility]) Obstructive chronic bronchitis with exacerbation Pulmonary emphysema, unspecified emphysema type ([facility]) Venous insufficiency Unspecified venous (peripheral) insufficiency Candidiasis of breast COPD exacerbation ([facility])- Primary Obstructive chronic bronchitis with exacerbation Pulmonary hypertension ([facility]) Other chronic pulmonary heart diseases Class 3 severe obesity with serious comorbidity and body mass index (BMI) of 50.0 to 59.9 in adult,unspecified obesity type ([facility]) Encounter for subsequent [...] 50.0 to 59.9 in adult,unspecified obesity type ([facility]) Tobacco user Tobacco use disorder Other headache syndrome Malignant neoplasm of cervix uteri, unspecified (CMS/HCC) Other specified disorders of adrenal gland (CMS/[facility]) Major depressive disorder, single episode, mild (HCC) ([facility]) Major depressive disorder, [...] spontaneous rupture of tympanic membrane Primary hypertension ([facility])- Primary Unspecified essential hypertension Insomnia Insomnia, unspecified Type 2 diabetes mellitus with complication, with long-term current use of insulin ([facility]) Non-seasonal allergic rhinitis, unspecified trigger Type 2 diabetes mellitus with unspecified complications ([facility]) Anxiety and depression ([facility]) Gastro-esophageal reflux disease without esophagitis Edema, unspecified Edema Diabetic polyneuropathy associated with type 2 diabetes mellitus ([facility]) Chronic obstructive pulmonary disease, unspecified (CMS/HCC) Pulmonary emphysema, unspecified emphysema type ([facility]/HCC) Bilateral lower extremity edema Tobacco user Tobacco use disorder Hyperpigmentation of skin Other dyschromia Bilateral lower extremity edema documented in this encounter [facility]* Diagnosis Obstructive sleep apnea- Primary Obstructive sleep apnea (adult) (pediatric) Pulmonary emphysema, unspecified emphysema type (CMS/HCC) Primary hypertension ([facility]) Unspecified essential hypertension Type 2 diabetes mellitus with complication, with long-term current use of insulin ([facility]) Anxiety and depression (CMS/[facility]) Bilateral lower extremity edema Pulmonary emphysema, unspecified emphysema type (CMS/HCC)- Primary Primary hypertension (CMS/HCC) Unspecified essential hypertension Class 3 severe obesity with serious comorbidity and body mass index (BMI) of 50.0 to 59.9 in adult,unspecified obesity type ([facility]/HCC) Obstructive sleep apnea Obstructive sleep apnea (adult) (pediatric) Pulmonary hypertension (CMS/HCC) Other chronic pulmonary heart diseases Tobacco user Tobacco use disorder Cardiomegaly Primary hypertension (CMS/HCC)- Primary Unspecified essential hypertension Gastroesophageal reflux disease, unspecified whether esophagitis present Type 2 diabetes mellitus with complication, with long-term current use of insulin (CMS/[facility]) Mixed hyperlipidemia (CMS/HCC) Mixed hyperlipidemia Tobacco user Tobacco use disorder Encounter for screening mammogram for malignant neoplasm of breast Chronic obstructive pulmonary disease, unspecified (CMS/[facility]) Other specified chronic obstructive pulmonary disease (CMS/[facility]) Anxiety and [...] 50.0 to 59.9 in adult,unspecified obesity type ([facility]) Encounter for subsequent annual wellness visit (AWV) in Medicare patient- Primary Type 2 diabetes mellitus with unspecified complications ([facility]) Pulmonary emphysema, unspecified emphysema type (CMS/HCC) Moderate persistent asthma without complication (CMS/HCC) Primary hypertension (CMS/[facility]) Unspecified essential hypertension Type 2 diabetes mellitus with complication, with long-term current use of insulin ([facility]) Class 3 severe obesity with serious comorbidity and body mass index (BMI) of 50.0 to 59.9 in adult,unspecified obesity type ([facility]/HCC) Tobacco user Tobacco use disorder Other headache syndrome Malignant neoplasm of cervix uteri, unspecified (CMS/[facility]) Other specified disorders of adrenal gland (CMS/[facility]) Major depressive disorder, single episode, mild (HCC) (CMS/[facility]) Major depressive [...] of insulin (CMS/[facility]) Non-seasonal allergic rhinitis, unspecified trigger Type 2 diabetes mellitus with unspecified complications (CMS/[facility]) Anxiety and depression (CMS/[facility]) Gastro-esophageal reflux disease without esophagitis Edema, unspecified Edema Diabetic polyneuropathy associated with type 2 diabetes mellitus (CMS/[facility]) Chronic obstructive pulmonary disease, unspecified (CMS/[facility]) Pulmonary emphysema, unspecified emphysema type (CMS/HCC) Bilateral lower extremity edema Tobacco user Tobacco use disorder Hyperpigmentation of skin Other dyschromia Primary hypertension ([facility])- Primary Unspecified essential hypertension Diabetic polyneuropathy associated with type 2 diabetes mellitus (CMS/[facility]) Pulmonary emphysema, unspecified emphysema type (CMS/HCC) Critical limb ischemia of right lower extremity (CMS/[facility]) PAD (peripheral artery disease) ([facility]) Unspecified peripheral vascular disease Gastroesophageal reflux disease, unspecified whether esophagitis present Bilateral lower extremity edema Venous ulcer of right leg (CMS/[facility]) Type 2 diabetes mellitus with complication, with long-term current use of insulin (CMS/[facility]) Tobacco user Tobacco use disorder Encounter for smoking cessation counseling Kidney stone Calculus of kidney Adrenal mass 1 cm to 4 cm in diameter ([facility]) Radiculopathy, lumbar region Thoracic or lumbosacral neuritis or radiculitis, unspecified Non-seasonal allergic rhinitis, unspecified trigger Type 2 diabetes mellitus with unspecified complications ([facility]) documented in this encounter [facility]* Diagnosis Obstructive sleep apnea- Primary Obstructive sleep apnea (adult) (pediatric) Pulmonary emphysema, unspecified emphysema type (CMS/HCC) Primary hypertension (CMS/[facility]) Unspecified essential hypertension Type 2 diabetes mellitus with complication, with long-term current use of insulin (CMS/[facility]) Anxiety and depression (CMS/[facility]) Bilateral lower extremity edema Pulmonary emphysema, unspecified emphysema type (CMS/HCC)- Primary Primary hypertension (CMS/HCC) Unspecified essential hypertension Class 3 severe obesity with serious comorbidity and body mass index (BMI) of 50.0 to 59.9 in adult,unspecified obesity type ([facility]/HCC) Obstructive sleep apnea Obstructive sleep apnea (adult) (pediatric) Pulmonary hypertension (CMS/HCC) Other chronic pulmonary heart diseases Tobacco user Tobacco use disorder Cardiomegaly Primary hypertension (CMS/HCC)- Primary Unspecified essential hypertension Gastroesophageal reflux disease, unspecified whether esophagitis present Type 2 diabetes mellitus with complication, with long-term current use of insulin (CMS/[facility]) Mixed hyperlipidemia (CMS/HCC) Mixed hyperlipidemia Tobacco user Tobacco use disorder Encounter for screening mammogram for malignant neoplasm of breast Chronic obstructive pulmonary disease, unspecified ([facility]) Other specified chronic obstructive pulmonary disease ([facility]) Anxiety and depression (CMS/[facility]) Edema, unspecified Edema Hyperlipidemia, unspecified (CMS/[facility]) Diabetic polyneuropathy associated with type 2 diabetes mellitus ([facility]) Gout, unspecified cause, [...] 50.0 to 59.9 in adult,unspecified obesity type ([facility]) Encounter for subsequent annual wellness visit (AWV) in Medicare patient- Primary Type 2 diabetes mellitus with unspecified complications (CMS/HCC) Pulmonary emphysema, unspecified emphysema type (CMS/HCC) Moderate persistent asthma without complication (CMS/HCC) Primary hypertension ([facility]) Unspecified essential hypertension Type 2 diabetes mellitus with complication, with long-term current use of insulin ([facility]) Class 3 severe obesity with serious comorbidity and body mass index (BMI) of 50.0 to 59.9 in adult,unspecified obesity type ([facility]/HCC) Tobacco user Tobacco use disorder Other headache syndrome Malignant neoplasm of cervix uteri, unspecified (CMS/[facility]) Other specified disorders of adrenal gland (CMS/[facility]) Major depressive disorder, single episode, mild (HCC) ([facility]) Major depressive disorder, single episode, mild Non-pressure chronic ulcer of other part of left lower leg with fat layer exposed ([facility]) Chronic respiratory failure, unspecified whether with hypoxia or hypercapnia (CMS/HCC) Disorder of adrenal gland, unspecified (CMS/HCC) Non-pressure chronic ulcer of other part of right lower leg limited to breakdown of skin (CMS/HCC) Non-recurrent acute suppurative otitis media of left ear without spontaneous rupture of tympanic membrane Primary hypertension ([facility])- Primary Unspecified essential hypertension Insomnia Insomnia, unspecified Type 2 diabetes mellitus with complication, with long-term current use of insulin (CMS/HCC) Non-seasonal allergic rhinitis, unspecified trigger Type 2 diabetes mellitus with unspecified complications (CMS/HCC) Anxiety and depression (CMS/[facility]) Gastro-esophageal reflux disease without esophagitis Edema, unspecified Edema Diabetic polyneuropathy associated with type 2 diabetes mellitus (CMS/[facility]) Chronic obstructive pulmonary disease, unspecified (CMS/[facility]) Pulmonary emphysema, unspecified emphysema type (CMS/[facility]) Bilateral lower extremity edema Tobacco user Tobacco use disorder Hyperpigmentation of skin Other dyschromia Primary hypertension (CMS/HCC)- Primary Unspecified essential hypertension Diabetic polyneuropathy associated with type 2 diabetes mellitus (CMS/[facility]) Pulmonary emphysema, unspecified emphysema type (CMS/HCC) Critical limb ischemia of right lower extremity ([facility]) PAD (peripheral artery disease) ([facility]) Unspecified peripheral vascular disease Gastroesophageal reflux disease, unspecified whether esophagitis present Bilateral lower extremity edema Venous ulcer of right leg ([facility]) Type 2 diabetes mellitus with complication, with long-term current use of insulin ([facility]) Tobacco user Tobacco use disorder Encounter for smoking cessation counseling Kidney stone Calculus of kidney Adrenal mass 1 cm to 4 cm in diameter ([facility]) Radiculopathy, lumbar region Thoracic or lumbosacral neuritis or radiculitis, unspecified Non-seasonal allergic rhinitis, unspecified trigger Type 2 diabetes mellitus with unspecified complications (CMS/HCC) Anxiety and depression ([facility])- Primary Morbid (severe) obesity due to excess calories (CMS/[facility]) Body mass index (BMI) 50.0-59.9, adult (CMS/[facility]) Malignant neoplasm of cervix uteri, unspecified (CMS/[facility]) Diabetic polyneuropathy associated with type 2 diabetes mellitus (CMS/HCC) Chronic diastolic heart failure (CMS/[facility]) Chronic diastolic heart failure Primary hypertension ([facility]) Unspecified essential hypertension 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 ([facility]) Gastroesophageal reflux disease, unspecified whether esophagitis present Bilateral lower extremity edema Type 2 diabetes mellitus with complication, with long-term current use of insulin ([facility]) Tobacco user Tobacco use disorder Mixed hyperlipidemia ([facility]) Mixed hyperlipidemia Gout, unspecified cause, unspecified chronicity, unspecified site Vitamin deficiency Unspecified vitamin deficiency Gastro-esophageal reflux disease without esophagitis Edema, unspecified Edema Hyperlipidemia, unspecified ([facility]) Encounter for smoking cessation counseling Venous ulcer of right leg ([facility]) Antibiotic-induced yeast infection documented in this encounter [facility]* Diagnosis Obstructive sleep apnea- Primary Obstructive sleep apnea (adult) (pediatric) Pulmonary emphysema, unspecified emphysema type ([facility]) Primary hypertension ([facility]) Unspecified essential hypertension Type 2 diabetes mellitus with complication, with long-term current use of insulin ([facility]) Anxiety and depression ([facility]) Bilateral lower extremity edema Pulmonary emphysema, unspecified emphysema type ([facility])- Primary Primary hypertension ([facility]) Unspecified essential hypertension Class 3 severe obesity with serious comorbidity and body mass index (BMI) of 50.0 to 59.9 in adult,unspecified obesity type Obstructive sleep apnea Obstructive sleep apnea (adult) (pediatric) Pulmonary hypertension ([facility]) Other chronic pulmonary heart diseases Tobacco user Tobacco use disorder Cardiomegaly Primary hypertension ([facility])- Primary Unspecified essential hypertension Gastroesophageal reflux disease, unspecified whether esophagitis present Type 2 diabetes mellitus with complication, with long-term current use of insulin ([facility]) Mixed hyperlipidemia ([facility]) Mixed hyperlipidemia Tobacco user Tobacco use disorder Encounter for screening mammogram for malignant neoplasm of breast Chronic obstructive pulmonary disease, unspecified Other specified chronic obstructive pulmonary disease Anxiety and depression ([facility]) Edema, unspecified Edema Hyperlipidemia, unspecified ([facility]) Diabetic polyneuropathy associated with type 2 diabetes mellitus ([facility]) Gout, unspecified cause, unspecified chronicity, unspecified site Non-seasonal allergic rhinitis, unspecified trigger Bilateral lower extremity edema COPD exacerbation ([facility]) Obstructive chronic bronchitis with exacerbation Pulmonary emphysema, unspecified emphysema type ([facility]) Venous insufficiency Unspecified [facility] Moderate persistent asthma without complication ([facility]) Primary hypertension ([facility]) Unspecified essential hypertension Type 2 diabetes mellitus with complication, with long-term current use of insulin ([facility]) Class 3 severe obesity with serious comorbidity and body mass index (BMI) of 50.0 to 59.9 in adult,unspecified obesity type Tobacco user Tobacco use disorder Other headache syndrome Malignant neoplasm of cervix uteri, unspecified Other specified disorders of adrenal gland Major depressive disorder, single episode, mild (HCC) ([facility]) Major depressive disorder, single episode, mild Non-pressure chronic ulcer of other part of left lower leg with fat layer exposed Chronic respiratory failure, unspecified whether with hypoxia or hypercapnia Disorder of adrenal gland, unspecified Non-pressure chronic ulcer of other part of right lower leg limited to breakdown of skin ([facility]) Non-recurrent acute suppurative otitis media of left ear without spontaneous rupture of tympanic membrane Primary hypertension ([facility])- Primary Unspecified essential hypertension Insomnia Insomnia, unspecified Type 2 diabetes mellitus with complication, with long-term current use of insulin ([facility]) Non-seasonal allergic rhinitis, unspecified trigger Type 2 diabetes mellitus with unspecified complications Anxiety and depression ([facility]) Gastro-esophageal reflux disease without esophagitis Edema, unspecified Edema Diabetic polyneuropathy associated with type 2 diabetes mellitus ([facility]) Chronic obstructive pulmonary disease, unspecified Pulmonary emphysema, unspecified emphysema type (CMS/HCC) Bilateral lower extremity edema Tobacco user Tobacco use disorder Hyperpigmentation of skin Other dyschromia Primary hypertension ([facility]/HCC)- Primary Unspecified essential hypertension Diabetic polyneuropathy associated with type 2 diabetes mellitus (CMS/HCC) Pulmonary emphysema, unspecified emphysema type ([facility]/HCC) Critical limb ischemia of right lower extremity ([facility]) PAD (peripheral artery disease) ([facility]) Unspecified peripheral vascular disease Gastroesophageal reflux disease, unspecified whether esophagitis present Bilateral lower extremity edema Venous ulcer of right leg ([facility]) Type 2 diabetes mellitus with complication, with long-term current use of insulin ([facility]) Tobacco user Tobacco use disorder Encounter for smoking cessation counseling Kidney stone Calculus of kidney Adrenal mass 1 cm to 4 cm in diameter ([facility]) Radiculopathy, lumbar region Thoracic or lumbosacral neuritis or radiculitis, unspecified Non-seasonal allergic rhinitis, unspecified trigger Type 2 diabetes mellitus with unspecified complications Anxiety and depression ([facility])- Primary Morbid (severe) obesity due to excess calories ([facility]) Body mass index (BMI) 50.0-59.9, adult ([facility]) Malignant neoplasm of cervix uteri, unspecified Diabetic polyneuropathy associated with type 2 diabetes mellitus ([facility]) Chronic diastolic heart failure ([facility]) Chronic diastolic heart failure Primary hypertension ([facility]) Unspecified essential hypertension 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 Gastroesophageal reflux disease, unspecified whether esophagitis present Bilateral lower extremity edema Type 2 diabetes mellitus with complication, with long-term current use of insulin ([facility]) Tobacco user Tobacco use disorder Mixed hyperlipidemia ([facility]) Mixed hyperlipidemia Gout, unspecified cause, unspecified chronicity, unspecified site Vitamin deficiency Unspecified vitamin deficiency Gastro-esophageal reflux disease without esophagitis Edema, unspecified Edema Hyperlipidemia, unspecified ([facility]) Encounter for smoking cessation counseling Venous ulcer of right leg ([facility]) Antibiotic-induced yeast infection Type 2 diabetes mellitus with hyperglycemia, with long-term current use of insulin ([facility])- Primary Encounter for dietary consultation Vitamin D deficiency Primary hypertension ([facility]) Unspecified essential hypertension Insulin long-term use ([facility]) Encounter for long-term (current) use of insulin Hyperlipemia, mixed ([facility]) Mixed hyperlipidemia Microalbuminuria Proteinuria Class 3 severe obesity due to excess calories with serious comorbidity and body mass index (BMI) of50.0 to 59.9 in adult documented in this encounter [facility] HealthcareEvaluation note* Diagnosis Obstructive sleep apnea- Primary Obstructive sleep apnea (adult) (pediatric) Pulmonary emphysema, unspecified emphysema type ([facility]) Primary hypertension ([facility]) Unspecified essential hypertension Type 2 diabetes mellitus with complication, with long-term current use of insulin ([facility]) Anxiety and depression ([facility]) Bilateral lower extremity edema Pulmonary emphysema, unspecified emphysema type ([facility])- Primary Primary hypertension (CMS/[facility]) Unspecified essential hypertension Class 3 severe obesity with serious comorbidity and body mass index (BMI) of 50.0 to 59.9 in adult,unspecified obesity type Obstructive sleep apnea Obstructive sleep apnea (adult) (pediatric) Pulmonary hypertension ([facility]) Other chronic pulmonary heart diseases Tobacco user Tobacco use disorder Cardiomegaly Primary hypertension ([facility])- Primary Unspecified essential hypertension Gastroesophageal reflux disease, unspecified whether esophagitis present Type 2 diabetes mellitus with complication, with long-term current use of insulin ([facility]) Mixed hyperlipidemia ([facility]) Mixed hyperlipidemia Tobacco user Tobacco use disorder Encounter for screening mammogram for malignant neoplasm of breast Chronic obstructive pulmonary disease, unspecified Other specified chronic obstructive pulmonary disease Anxiety and depression ([facility]) Edema, unspecified Edema Hyperlipidemia, unspecified ([facility]) Diabetic polyneuropathy associated with type 2 diabetes mellitus ([facility]) Gout, unspecified cause, unspecified chronicity, unspecified site Non-seasonal allergic rhinitis, unspecified trigger Bilateral lower extremity edema COPD exacerbation ([facility]) Obstructive chronic bronchitis with exacerbation Pulmonary emphysema, unspecified emphysema type ([facility]) Venous insufficiency Unspecified venous (peripheral) insufficiency Candidiasis of breast COPD exacerbation ([facility])- Primary Obstructive chronic bronchitis with exacerbation Pulmonary hypertension ([facility]) Other chronic pulmonary heart diseases Class 3 severe obesity with serious comorbidity and body mass index (BMI) of 50.0 to 59.9 in adult,unspecified obesity type Encounter for subsequent annual wellness visit (AWV) in Medicare patient- Primary Type 2 diabetes mellitus with unspecified complications Pulmonary emphysema, unspecified emphysema type ([facility]) Moderate persistent asthma without complication ([facility]) Primary hypertension ([facility]) Unspecified essential hypertension Type 2 diabetes mellitus with complication, with long-term current use of insulin ([facility]) Class 3 severe obesity with serious comorbidity and body mass index (BMI) of 50.0 to 59.9 in adult,unspecified obesity type Tobacco user Tobacco use disorder Other headache syndrome Malignant neoplasm of cervix uteri, unspecified Other specified disorders of adrenal gland Major depressive disorder, single episode, mild (HCC) ([facility]) Major depressive disorder, single episode, mild Non-pressure chronic ulcer of other part of left lower leg with fat layer exposed Chronic respiratory failure, unspecified whether with hypoxia or hypercapnia Disorder of adrenal gland, unspecified Non-pressure chronic ulcer of other part of right lower leg limited to breakdown of skin ([facility]) Non-recurrent acute suppurative otitis media of left ear without spontaneous rupture of tympanic membrane Primary hypertension ([facility])- Primary Unspecified essential hypertension Insomnia Insomnia, unspecified Type 2 diabetes mellitus with complication, with long-term current use of insulin ([facility]) Non-seasonal allergic rhinitis, unspecified trigger Type 2 diabetes mellitus with unspecified complications Anxiety and depression ([facility]) Gastro-esophageal reflux disease without esophagitis Edema, unspecified Edema Diabetic polyneuropathy associated with type 2 diabetes mellitus ([facility]) Chronic obstructive pulmonary disease, unspecified Pulmonary emphysema, unspecified emphysema type ([facility]) Bilateral lower extremity edema Tobacco user Tobacco use disorder Hyperpigmentation of skin Other dyschromia Primary hypertension ([facility])- Primary Unspecified essential hypertension Diabetic polyneuropathy associated with type 2 diabetes mellitus ([facility]) Pulmonary emphysema, unspecified emphysema type ([facility]) Critical limb ischemia of right lower extremity ([facility]) PAD (peripheral artery disease) ([facility]) Unspecified peripheral vascular disease Gastroesophageal reflux disease, unspecified whether esophagitis present Bilateral lower extremity edema Venous ulcer of right leg ([facility]) Type 2 diabetes mellitus with complication, with long-term current use of insulin ([facility]) Tobacco user Tobacco use disorder Encounter for smoking cessation counseling Kidney stone Calculus of kidney Adrenal mass 1 cm to 4 cm in diameter ([facility]) Radiculopathy, lumbar region Thoracic or lumbosacral neuritis or radiculitis, unspecified Non-seasonal allergic rhinitis, unspecified trigger Type 2 diabetes mellitus with unspecified complications Anxiety and depression ([facility])- Primary Morbid (severe) obesity due to excess calories ([facility]) Body mass index (BMI) 50.0-59.9, adult ([facility]) Malignant neoplasm of cervix uteri, unspecified Diabetic polyneuropathy associated with type 2 diabetes mellitus ([facility]) Chronic diastolic heart failure ([facility]) Chronic diastolic heart failure Primary hypertension ([facility]) Unspecified essential hypertension 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 Gastroesophageal reflux disease, unspecified whether esophagitis present Bilateral lower extremity edema Type 2 diabetes mellitus with complication, with long-term current use of insulin ([facility]) Tobacco user Tobacco use disorder Mixed hyperlipidemia ([facility]) Mixed hyperlipidemia Gout, unspecified cause, unspecified chronicity, unspecified site Vitamin deficiency Unspecified vitamin deficiency Gastro-esophageal reflux disease without esophagitis Edema, unspecified Edema Hyperlipidemia, unspecified ([facility]) Encounter for smoking cessation counseling Venous ulcer of right leg ([facility]) Antibiotic-induced yeast infection Chronic obstructive pulmonary disease, unspecified documented in this encounter [facility] HealthcareEvaluation note* Diagnosis Obstructive sleep apnea- Primary Obstructive sleep apnea (adult) (pediatric) Pulmonary emphysema, unspecified emphysema type ([facility]) Primary hypertension ([facility]) Unspecified essential hypertension Type 2 diabetes mellitus with complication, with long-term current use of insulin ([facility]) Anxiety and depression ([facility]) Bilateral lower extremity edema Pulmonary emphysema, unspecified emphysema type ([facility])- Primary Primary hypertension ([facility]) Unspecified essential hypertension Class 3 severe obesity with serious comorbidity and body mass index (BMI) of 50.0 to 59.9 in adult,unspecified obesity type Obstructive sleep apnea Obstructive sleep apnea (adult) (pediatric) Pulmonary hypertension ([facility]) Other chronic pulmonary heart diseases Tobacco user Tobacco use disorder Cardiomegaly Primary hypertension ([facility])- Primary Unspecified essential hypertension Gastroesophageal reflux disease, unspecified whether esophagitis present Type 2 diabetes mellitus with complication, with long-term current use of insulin ([facility]) Mixed hyperlipidemia ([facility]) Mixed hyperlipidemia Tobacco user Tobacco use disorder Encounter for screening mammogram for malignant neoplasm of breast Chronic obstructive pulmonary disease, unspecified Other specified chronic obstructive pulmonary disease Anxiety and depression ([facility]) Edema, unspecified Edema Hyperlipidemia, unspecified ([facility]) Diabetic polyneuropathy associated with type 2 diabetes mellitus ([facility]) Gout, unspecified cause, unspecified chronicity, unspecified site Non-seasonal allergic rhinitis, unspecified trigger Bilateral lower extremity edema COPD exacerbation ([facility]) Obstructive chronic bronchitis with exacerbation Pulmonary emphysema, unspecified emphysema type ([facility]) Venous insufficiency Unspecified venous (peripheral) insufficiency Candidiasis of breast COPD exacerbation ([facility])- Primary Obstructive chronic bronchitis with exacerbation Pulmonary hypertension ([facility]) Other chronic pulmonary heart diseases Class 3 severe obesity with serious comorbidity and body mass index (BMI) of 50.0 to 59.9 in adult,unspecified obesity type Encounter for subsequent annual wellness visit (AWV) in Medicare patient- Primary Type 2 diabetes mellitus with unspecified complications Pulmonary emphysema, unspecified emphysema type ([facility]) Moderate persistent asthma without complication ([facility]) Primary hypertension ([facility]) Unspecified essential hypertension Type 2 diabetes mellitus with complication, with long-term current use of insulin ([facility]) Class 3 severe obesity with serious comorbidity and body mass index (BMI) of 50.0 to 59.9 in adult,unspecified obesity type Tobacco user Tobacco use disorder Other headache syndrome Malignant neoplasm of cervix uteri, unspecified Other specified disorders of adrenal gland Major depressive disorder, single episode, mild (HCC) ([facility]) Major depressive disorder, single episode, mild Non-pressure chronic ulcer of other part of left lower leg with fat layer exposed Chronic respiratory failure, unspecified whether with hypoxia or hypercapnia Disorder of adrenal gland, unspecified Non-pressure chronic ulcer of other part of right lower leg limited to breakdown of skin ([facility]) Non-recurrent acute suppurative otitis media of left ear without spontaneous rupture of tympanic membrane Primary hypertension ([facility])- Primary Unspecified essential hypertension Insomnia Insomnia, unspecified Type 2 diabetes mellitus with complication, with long-term current use of insulin ([facility]) Non-seasonal allergic rhinitis, unspecified trigger Type 2 diabetes mellitus with unspecified complications Anxiety and depression ([facility]) Gastro-esophageal reflux disease without esophagitis Edema, unspecified Edema Diabetic polyneuropathy associated with type 2 diabetes mellitus ([facility]) Chronic obstructive pulmonary disease, unspecified Pulmonary emphysema, unspecified emphysema type ([facility]) Bilateral lower extremity edema Tobacco user Tobacco use disorder Hyperpigmentation of skin Other dyschromia Primary hypertension ([facility])- Primary Unspecified essential hypertension Diabetic polyneuropathy associated with type 2 diabetes mellitus ([facility]) Pulmonary emphysema, unspecified emphysema type ([facility]) Critical limb ischemia of right lower extremity ([facility]) PAD (peripheral artery disease) ([facility]) Unspecified peripheral vascular disease Gastroesophageal reflux disease, unspecified whether esophagitis present Bilateral lower extremity edema Venous ulcer of right leg ([facility]) Type 2 diabetes mellitus with complication, with long-term current use of insulin ([facility]) Tobacco user Tobacco use disorder Encounter for smoking cessation counseling Kidney stone Calculus of kidney Adrenal mass 1 cm to 4 cm in diameter ([facility]) Radiculopathy, lumbar region Thoracic or lumbosacral neuritis or radiculitis, unspecified Non-seasonal allergic rhinitis, unspecified trigger Type 2 diabetes mellitus with unspecified complications Anxiety and depression ([facility])- Primary Morbid (severe) obesity due to excess calories ([facility]) Body mass index (BMI) 50.0-59.9, adult ([facility]) Malignant neoplasm of cervix uteri, unspecified Diabetic polyneuropathy associated with type 2 diabetes mellitus ([facility]) Chronic diastolic heart failure ([facility]) Chronic diastolic heart failure Primary hypertension ([facility]) Unspecified essential hypertension 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 Gastroesophageal reflux disease, unspecified whether esophagitis present Bilateral lower extremity edema Type 2 diabetes mellitus with complication, with long-term current use of insulin ([facility]) Tobacco user Tobacco use disorder Mixed hyperlipidemia ([facility]) Mixed hyperlipidemia Gout, unspecified cause, unspecified chronicity, unspecified site Vitamin deficiency Unspecified vitamin deficiency Gastro-esophageal reflux disease without esophagitis Edema, unspecified Edema Hyperlipidemia, unspecified ([facility]) Encounter for smoking cessation counseling Venous ulcer of right leg ([facility]) Antibiotic-induced yeast infection Primary hypertension ([facility])- Primary Unspecified essential hypertension Diabetic polyneuropathy associated with type 2 diabetes mellitus ([facility]) Chronic diastolic heart failure ([facility]) Chronic diastolic heart failure Bilateral lower extremity edema Morbid (severe) obesity due to excess calories ([facility]) Type 2 diabetes mellitus with complication, with long-term current use of insulin ([facility]) Anxiety and depression ([facility]) Cigarette nicotine dependence without complication Encounter for screening mammogram for malignant neoplasm of breast Insomnia Insomnia, unspecified Non-seasonal allergic rhinitis, unspecified trigger Type 2 diabetes mellitus with unspecified complications Vitamin D deficiency, unspecified Gastro-esophageal reflux disease without esophagitis PAD (peripheral artery disease) ([facility]) Unspecified peripheral vascular disease Gastroesophageal reflux disease, unspecified whether esophagitis present Venous ulcer of right leg ([facility]) documented in this encounter [facility] HealthcareEvaluation note* Diagnosis Obstructive sleep apnea- [...] 50.0 to 59.9 in adult,unspecified obesity type ([facility]) Obstructive sleep apnea Obstructive sleep [...] 50.0 to 59.9 in adult,unspecified obesity type ([facility]) Encounter for subsequent annual wellness [...] 50.0 to 59.9 in adult,unspecified obesity type ([facility]) Tobacco user Tobacco [...] [facility]) Chronic obstructive pulmonary disease, unspecified (HCC) Pulmonary emphysema, unspecified emphysema type (HCC) Bilateral lower extremity edema Tobacco user Tobacco use disorder Hyperpigmentation of skin Other dyschromia Primary hypertension- Primary Unspecified essential hypertension Diabetic polyneuropathy associated with type 2 diabetes mellitus ([facility]) Pulmonary emphysema, unspecified emphysema type ([facility]) Critical limb ischemia of right lower extremity ([facility]) PAD (peripheral artery [...] Morbid (severe) obesity due to excess calories ([facility]) Body mass index (BMI) 50.0-59.9, adult ([facility]) Malignant neoplasm of cervix uteri, [...] Morbid (severe) obesity due to excess calories ([facility]) Type 2 diabetes [...] right leg ([facility]) Cellulitis of left lower extremity- Primary COPD exacerbation ([facility]) Obstructive chronic bronchitis with exacerbation Primary hypertension Unspecified essential hypertension Pulmonary hypertension ([facility]) Other chronic pulmonary heart diseases Morbid (severe) obesity due to excess calories ([facility]) Type 2 diabetes mellitus with complication, with long-term current use of insulin ([facility]) Anxiety and depression Fever, unspecified fever cause Hyperlipidemia, unspecified Tobacco user Tobacco use disorder Encounter for smoking cessation counseling documented in this encounter [facility] HealthcareEvaluation note* Diagnosis Obstructive sleep apnea- Primary Obstructive sleep apnea (adult) (pediatric) Pulmonary emphysema, unspecified emphysema type ([facility]) Primary hypertension ([facility]) Unspecified essential hypertension Type 2 diabetes mellitus with complication, with long-term current use of insulin ([facility]) Anxiety and depression ([facility]) Bilateral lower extremity edema Pulmonary emphysema, unspecified emphysema type ([facility])- Primary Primary hypertension ([facility]) Unspecified essential hypertension Class 3 severe obesity with serious comorbidity and body mass index (BMI) of 50.0 to 59.9 in adult,unspecified obesity type Obstructive sleep apnea Obstructive sleep apnea (adult) (pediatric) Pulmonary hypertension ([facility]) Other chronic pulmonary heart diseases Tobacco user Tobacco use disorder Cardiomegaly Primary hypertension ([facility])- Primary Unspecified essential hypertension Gastroesophageal reflux disease, unspecified whether esophagitis present Type 2 diabetes mellitus with complication, with long-term current use of insulin ([facility]) Mixed hyperlipidemia ([facility]) Mixed hyperlipidemia Tobacco user Tobacco use disorder Encounter for screening mammogram for malignant neoplasm of breast Chronic obstructive pulmonary disease, unspecified Other specified chronic obstructive pulmonary disease Anxiety and depression ([facility]) Edema, unspecified Edema Hyperlipidemia, unspecified ([facility]) Diabetic polyneuropathy associated with type 2 diabetes mellitus ([facility]) Gout, unspecified cause, [...] Major depressive disorder, single episode, mild (HCC) ([facility]) Major depressive disorder, [...] spontaneous rupture of tympanic membrane Primary hypertension ([facility])- Primary Unspecified essential hypertension Insomnia Insomnia, unspecified Type 2 diabetes mellitus with complication, with long-term current use of insulin ([facility]) Non-seasonal allergic rhinitis, unspecified trigger Type 2 diabetes mellitus with unspecified complications Anxiety and depression ([facility]) Gastro-esophageal reflux disease without esophagitis Edema, unspecified Edema Diabetic polyneuropathy associated with type 2 diabetes mellitus ([facility]) Chronic obstructive pulmonary disease, unspecified Pulmonary emphysema, unspecified emphysema type ([facility]) Bilateral lower extremity edema Tobacco user Tobacco use disorder Hyperpigmentation of skin Other dyschromia Primary hypertension (CMS/HCC)- Primary Unspecified essential hypertension Diabetic polyneuropathy associated with type 2 diabetes mellitus ([facility]) Pulmonary emphysema, unspecified emphysema type ([facility]) Critical limb ischemia of right lower extremity ([facility]) PAD (peripheral artery disease) ([facility]) Unspecified peripheral vascular disease Gastroesophageal reflux disease, unspecified whether esophagitis present Bilateral lower extremity edema Venous ulcer of right leg ([facility]) Type 2 diabetes mellitus with complication, with long-term current use of insulin ([facility]) Tobacco user Tobacco use disorder Encounter for smoking cessation counseling Kidney stone Calculus of kidney Adrenal mass 1 cm to 4 cm in diameter ([facility]) Radiculopathy, lumbar region Thoracic or lumbosacral neuritis or radiculitis, unspecified Non-seasonal allergic rhinitis, unspecified trigger Type 2 diabetes mellitus with unspecified complications Anxiety and depression ([facility])- Primary Morbid (severe) obesity due to excess calories ([facility]) Body mass index (BMI) 50.0-59.9, adult ([facility]) Malignant neoplasm of cervix uteri, unspecified Diabetic polyneuropathy associated with type 2 diabetes mellitus ([facility]) Chronic diastolic heart failure ([facility] Chronic diastolic heart failure Primary hypertension ([facility]) Unspecified essential hypertension Idiopathic chronic 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 Gastroesophageal reflux disease, unspecified whether esophagitis present Bilateral lower extremity edema Type 2 diabetes mellitus with complication, with long-term current use of insulin ([facility]) Tobacco user Tobacco use disorder Mixed hyperlipidemia ([facility]) Mixed hyperlipidemia Gout, unspecified cause, unspecified chronicity, unspecified site Vitamin deficiency Unspecified vitamin deficiency Gastro-esophageal reflux disease without esophagitis Edema, unspecified Edema Hyperlipidemia, unspecified ([facility]) Encounter for smoking cessation counseling Venous ulcer of right leg ([facility]) Antibiotic-induced yeast infection Primary hypertension ([facility])- Primary Unspecified essential hypertension Diabetic polyneuropathy associated with type 2 diabetes mellitus ([facility]) Chronic diastolic heart failure ([facility]) Chronic diastolic heart failure Bilateral lower extremity edema Morbid (severe) obesity due to excess calories ([facility]) Type 2 diabetes mellitus with complication, with long-term current use of insulin ([facility]) Anxiety and depression ([facility]) Cigarette nicotine dependence without complication Encounter for screening mammogram for malignant neoplasm of breast Insomnia Insomnia, unspecified Non-seasonal allergic rhinitis, unspecified trigger Type 2 diabetes mellitus with unspecified complications Vitamin D deficiency, unspecified Gastro-esophageal reflux disease without esophagitis PAD (peripheral artery disease) ([facility]) Unspecified peripheral vascular disease Gastroesophageal reflux disease, unspecified whether esophagitis present Venous ulcer of right leg ([facility]) Cellulitis of left lower extremity- Primary COPD exacerbation ([facility]) Obstructive chronic bronchitis with exacerbation Primary hypertension ([facility]) Unspecified essential hypertension Pulmonary hypertension ([facility]) Other chronic pulmonary heart diseases Morbid (severe) obesity due to excess calories ([facility]) Type 2 diabetes mellitus with complication, with long-term current use of insulin ([facility]) Anxiety and depression ([facility]) Fever, unspecified fever cause documented in this encounter [facility] HealthcareEvaluation note* Diagnosis Obstructive sleep apnea- Primary [...] 50.0 to 59.9 in adult,unspecified obesity type ([facility]) Obstructive sleep apnea Obstructive sleep [...] 50.0 to 59.9 in adult,unspecified obesity type ([facility]) Encounter for subsequent annual wellness visit (AWV) in Medicare patient- Primary Type 2 diabetes mellitus with unspecified complications ([facility]) Pulmonary emphysema, unspecified emphysema type ([facility]) Moderate persistent asthma without complication (HCC) Primary hypertension Unspecified essential hypertension Type 2 diabetes mellitus with complication, with long-term current use of insulin ([facility]) Class 3 severe obesity with serious comorbidity and body mass index (BMI) of 50.0 to 59.9 in adult,unspecified obesity type ([facility]) Tobacco user Tobacco use disorder [...] Critical limb ischemia of right lower extremity ([facility]) PAD (peripheral artery [...] Morbid (severe) obesity due to excess calories ([facility]) Body mass index (BMI) 50.0-59.9, adult ([facility]) Malignant neoplasm of [...] Morbid (severe) obesity due to excess calories ([facility]) Type 2 diabetes [...] Morbid (severe) obesity due to excess calories ([facility]) Type 2 diabetes [...] Morbid (severe) obesity due to excess calories ([facility]) Type 2 diabetes mellitus with hyperglycemia, with long-term current use of insulin (HCC) documented in this encounter [facility] HealthcareEvaluation note* Diagnosis Obstructive sleep apnea- [...] 50.0 to 59.9 in adult,unspecified obesity type ([facility]) Obstructive sleep apnea [...] 50.0 to 59.9 in adult,unspecified obesity type ([facility]) Encounter for subsequent annual wellness visit (AWV) in Medicare patient- Primary Type 2 diabetes mellitus with unspecified complications ([facility]) Pulmonary emphysema, unspecified emphysema type ([facility]) Moderate persistent asthma without complication (HCC) Primary hypertension Unspecified essential hypertension Type 2 diabetes mellitus with complication, with long-term current use of insulin ([facility]) Class 3 severe obesity with serious comorbidity and body mass index (BMI) of 50.0 to 59.9 in adult,unspecified obesity type ([facility]) Tobacco user Tobacco use disorder [...] Critical limb ischemia of right lower extremity ([facility]) PAD (peripheral artery [...] Morbid (severe) obesity due to excess calories ([facility]) Body mass index (BMI) 50.0-59.9, adult ([facility]) Malignant neoplasm of [...] Morbid (severe) obesity due to excess calories ([facility]) Type 2 diabetes [...] Morbid (severe) obesity due to excess calories ([facility]) Type 2 diabetes [...] ([facility]) Encounter for dietary consultation- Primary [...] index (BMI) of50.0 to 59.9 in adult ([facility]) documented in this encounter [facility] HealthcareEvaluation note* Diagnosis Obstructive sleep apnea- [...] 50.0 to 59.9 in adult,unspecified obesity type ([facility]) Obstructive sleep apnea Obstructive sleep [...] diabetes mellitus ([facility]) Gout, unspecified cause, [...] 50.0 to 59.9 in adult,unspecified obesity type ([facility]) Encounter for subsequent [...] 50.0 to 59.9 in adult,unspecified obesity type ([facility]) Tobacco user Tobacco use disorder [...] [facility]) Chronic obstructive pulmonary disease, unspecified (HCC) Pulmonary emphysema, unspecified emphysema type ([facility]) Bilateral lower extremity edema Tobacco user Tobacco use disorder Hyperpigmentation of skin Other dyschromia Primary hypertension- Primary Unspecified essential hypertension Diabetic polyneuropathy associated with type 2 diabetes mellitus (HCC) Pulmonary emphysema, unspecified emphysema type (HCC) Critical limb ischemia of right lower extremity ([facility]) PAD (peripheral artery [...] Morbid (severe) obesity due to excess calories ([facility]) Body mass index (BMI) 50.0-59.9, adult ([facility]) Malignant neoplasm of [...] Morbid (severe) obesity due to excess calories ([facility]) Type 2 diabetes [...] right leg ([facility]) Cellulitis of left lower extremity- Primary COPD exacerbation (HCC) Obstructive chronic bronchitis with exacerbation Primary hypertension Unspecified essential hypertension Pulmonary hypertension (HCC) Other chronic pulmonary heart diseases Morbid (severe) obesity due to excess calories ([facility]) Type 2 diabetes [...] disease, unspecified ([facility]) Hyperlipidemia, unspecified Vaginal yeast infection Candidiasis of vulva and vagina Morbid (severe) obesity due to excess calories ([facility]) Tobacco user Tobacco use disorder Encounter for smoking cessation counseling documented in this encounter [facility] HealthcareEvaluation noteNo assessment information availableFirCity Hospital Work Phone: History general Narrative - Reported* Type Description Date Medical History diabetes mallitus Medical HistoryCOPDMedical HistoryADRENAL MASS 1 CM TO 4 CM IN DIAMETERMedical HistoryARTHRITISMedical HistoryASTHMAMedical HistoryHEADACHEMedical History HYPERTENSIONMedical HistoryKIDNEY STONESMedical HistoryLEFT FLANK PAINMedical HistoryMIXED INCONTINENCEMedical HistoryPROTEINURIAMedical HistorySMOKERSurgical [id number] Historytoe surgerySurgical HistoryLAPAROSCOPIC CHOLECYSTECTOMYHospitalization [id number] HistorySEE ABOVE Zesty Other Hospital course Narrative No data available for this section [facility] progress note No data available for this section [facility] reason for referral (narrative) , Referral to Dr. Cortés Referred by: REGLA PHIPPS, Elbert Joya [facility] reason for referral (narrative)No reason for referral information availableFirCity Hospital Work Phone: Advance Directives TypeDate RecordedPatient RepresentativeExplanationAdvance Directives and Living WillPower of Voice Intercept Technician Advance Directive Response Recorded Date/ Time [...] section and content) DATE CREATED AUTHOR 10/30/2019 [facility] DATE CREATED AUTHOR AUTHOR'S ORGANIZ ATION 09/15/2020 [facility] DATE CREATED AUTHOR AUTHOR'S ORGANIZ ATION 12/19/2022 [facility] DATE CREATED AUTHOR AUTHOR'S ORGANIZ ATION 01/30/2025 [facility] DATE CREATED AUTHOR AUTHOR'S ORGANIZ ATION 04/12/2025 [facility] DATE CREATED AUTHOR AUTHOR'S ORGANIZ ATION 04/29/2025 [facility] DATE CREATED AUTHOR AUTHOR'S ORGANIZ ATION 05/01/2025 [facility] Care Team (unrecognized sect ion and content) Team MemberRelationshipSpecialtyStart DateEnd Date Ty Amin MD PCP - [facility]01/05/23Team MemberRelationshipSpecialtyStart DateEnd Date Ty Amin MD PCP - [facility]01/05/23Team MemberRelationshipSpecialtyStart DateEnd Date Ty Amin MD [address] [place] [phone] PCP - [facility]09/20/23 Mckayla Blas NP [address] [place] [address] PCP - [facility]/ Mckayla Blas NP [address] [place] [address] [facility]/20/23Team MemberRelationshipSpecialtyStart DateEnd Date Ty Amin MD [address] [place] [address] [facility] - [facility]23 Mckayla Blas NP [address] [place] [address] PCP - [facility]/ Mckayla Blas NP [address] [place] [address] [facility]09/20/23Team MemberRelationshipSpecialtyStart DateEnd Date Ty Amin MD [address] [place] [address] PCP - [facility]09/20/23 Mckayla Blas NP [address] [place] [address] PCP - [facility]/ Mckayla Blas NP [address] [place] [address] [facility]09/20/23Team MemberRelationshipSpecialtyStart DateEnd Date Ty Amin MD [address] [place] [address] PCP - [facility]09/20/23 Mckayla Blas NP [address] [place] [address] [place] [address]/ Mckayla Blas NP [address] [place] [address] [facility]09/20/23Team MemberRelationshipSpecialtyStart DateEnd Date Ty Amin MD [address] [place] [address] PCP - [facility]09/20/23 Mckayla Blas NP [address] [place] [address] [place] [address]/ Mckayla Blas NP [address] [place] [address] [facility]09/20/23Team MemberRelationshipSpecialtyStart DateEnd Date Ty Amin MD [address] [place] [address] PCP - [facility]09/20/23 Mckayla Blas NP [address] [place] [address] [place] [address]/ Mckayla Blas NP [address] [place] [address] [facility]09/20/23Team MemberRelationshipSpecialtyStart DateEnd Date Ty Amin MD [address] [place] [address] PCP - [facility]09/20/23 Mckayla Blas NP [address] [place] [address] PCP - [facility]/ Mckayla Blas NP [address] [place] [address] [facility]09/20/23Team MemberRelationshipSpecialtyStart DateEnd Date Ty Amin MD [address] [place] [address] [facility]/23 Mckayla Blas NP [address] [place] [address] [place] [address] Mckayla Blas NP [address] [place] [address] [facility]09/20/23Team MemberRelationshipSpecialtyStart DateEnd Date Ty Amin MD [address] [place] [address] PCP - [facility]09/20/23 Mckayla Blas NP [address] [place] [address] PCP [facility] Mckayla Blas NP [address] [place] [address] [facility]09/20/23Team MemberRelationshipSpecialtyStart DateEnd Date Ty Amin MD [address] [place] [address] PCP - [facility]09/20/23 Mckayla Blsa NP [address] [place] [address] PCP [facility]/ Mckayla Blas NP [address] [place] [address] [facility]09/20/23Team MemberRelationshipSpecialtyStart DateEnd Date Ty Amin MD [address] [place] [address] [facility] - [facility]/20/23 Mckayla Blas, SILVANO [address] [place] [address] [place] [address]/ Mckayla Blas NP [address] [place] [address] [facility]09/20/23Team MemberRelationshipSpecialtyStart DateEnd Date Ty Amin MD [address] [place] [address] [facility]CP - [facility]/20/23 Mckayla Blas NP [address] [place] [address] PCP - [facility]/ Mckayla Blas NP [address] [place] [address] [facility]09/20/23Team MemberRelationshipSpecialtyStart DateEnd Date Ty Amin MD [address] [place] [address] PCP - [facility]09/20/23 Mckayla Blas NP [address] [place] [address] [place] [address] Mckayla Blas NP [address] [place] [address] [facility]09/20/23Team MemberRelationshipSpecialtyStart DateEnd Date Ty Amin MD [address] [place] [address] [facility] - [facility]09/[facility]/23 Mckayla Blas NP [address] [place] [address] [place] [address]/ Mckayla Blas NP [address] [place] [address] Nurse [facility] Medicine09/20/23Team MemberRelationshipSpecialtyStart DateEnd Date Ty Amin MD [address] [place] [address] PCP - [facility]09/20/23 Mckayla Blas NP [address] [place] [address] PCP [facility]/ Mckayla Blas NP [address] [place] [address] [facility]09/20/23Team MemberRelationshipSpecialtyStart DateEnd Date Ty Amin MD [address] [place] [address] PCP - [facility]09/20/23 Mckayla Blas NP [address] [place] [address] [place] [address]/ Mckayla Blas NP [address] [place] [address] [facility]09/20/23Team MemberRelationshipSpecialtyStart DateEnd Date Ty Amin MD [address] [place] [address] [facility] - [facility]23 Mckayla Blas, SILVANO [address] [place] [address] [place] [address] Mckayla Blas NP [address] [place] [address] [facility] Medicine09/20/23Team MemberRelationshipSpecialtyStart DateEnd Date Ty Amin MD [address] [place] [address] PCP - [facility]09/20/23 Mckayla Blas NP [address] [place] [address] [place] [address] Mckayla Blas NP [address] [place] [address] [facility]09/20/23Team MemberRelationshipSpecialtyStart DateEnd Date Ty Amin MD [address] [place] [address] PCP - [facility]09/20/23 Mckayla Blas NP [address] [place] [address] PCP [facility]/ Mckayla Blas NP [address] [place] [address] [facility]09/20/23Team MemberRelationshipSpecialtyStart DateEnd Date Ty Amin MD [address] [place] [address] [facility] - [facility]/20/23 Mckayla Blas NP [address] [place] [address] [place] [address]/ Mckayla Blas NP [address] [place] [address] [facility]09/20/23Team MemberRelationshipSpecialtyStart DateEnd Date Ty Amin MD [address] [place] [address] PCP - [facility] Medicine09/20/23 Mckayla Blas NP [address] [place] [address] [facility]09/20/23Team MemberRelationshipSpecialtyStart DateEnd Date Ty Amin MD [address] [place] [address] PCP - [facility] Medicine09/20/23 Mckayla Blas NP [address] [place] [address] [facility]09/20/23Team MemberRelationshipSpecialtyStart DateEnd Date Ty Amin MD [address] [place] [address] PCP - GeneralFamily Medicine09/20/23 Mckayla Blas NP [address] [place] [address] [facility]09/20/23Team MemberRelationshipSpecialtyStart DateEnd Date Ty Amin MD [address] [place] [address] PCP - GeneralFamily Medicine09/20/23 Mckayla Blas NP [address] [place] [address] [facility]Luc[facility]09/20/23Team MemberRelationshipSpecialtyStart DateEnd Date Ty Amin MD [address] [place] [address] PCP - GeneralFamily Medicine09/20/23 Mckayla Blas NP [address] [place] [address] Nurse Pract[facility]erLuc[facility] Center[facility]09/20/23 Team Status: Active Member Role Status Dates Mckayla J Aichholz , NUT DEHYDRATOR OPERATOR-C Primary Care Provider Active Team Status: Active Member Role Status Dates Mckayla Krystal Blas , NUT DEHYDRATOR OPERATOR-C Primary Care Provider Active Start: March 25, 2025 Price Arora , DOAttending ProviderActiveStart: March 25, 2025 Team Status: Active Member Role Status Dates Mckayla Krystal Blas , NUT DEHYDRATOR OPERATOR-C Primary Care Provider Active Start: March 26, 2025 Darrell Wellsending ProviderActiveStart: March 26, 2025 Team Status: Inactive Member Role Status Dates Mckayla Krystal Blas , NUT DEHYDRATOR OPERATOR-C Primary Care Provider Active Start: April 06, 2025 End: April 06, 2025Maria De Jesussa Krystal Blas , NUT DEHYDRATOR OPERATOR-CAttending ProviderActiveStart: April 06, 2025 End: April 06, 2025 Team Status: Active Member Role/Relationship Status Dates Mckayla Krystal Blas , NUT DEHYDRATOR OPERATOR-C Primary Care Provider Active Team Status: Active Member Role/Relationship Status Dates Mckayla Krystal Blas , NUT DEHYDRATOR OPERATOR-C Primary Care Provider Active Start: March 25, 2025 Price Arora DOAttending ProviderActiveStart: March 25, 2025 Team Status: Active Member Role/Relationship Status Dates Mckayla Krystal Blas , NUT DEHYDRATOR OPERATOR-C Primary Care Provider Active Start: March 26, 2025 Darrell Wellsending ProviderActiveStart: March 26, 2025 Team Status: Inactive Member Role/Relationship Status Dates Mckayla Krystal Blas , NUT DEHYDRATOR OPERATOR-C Primary Care Provider Active Start: April 06, 2025 End: April 06, 2025Mckayla Blas , NUT DEHYDRATOR OPERATOR-CAttending ProviderActiveStart: April 06, 2025 End: April 06, 2025 Team Status: Inactive Member Role/Relationship Status Dates Mckayla Krystal Patriciaholtalia , NUT DEHYDRATOR OPERATOR-C Primary Care Provider Active Start: April 29, 2025 End: April 29, 2025Mckayla Blas , NUT DEHYDRATOR OPERATOR-CAttending ProviderActiveStart: April 29, 2025 End: April 29, 2025Team MemberRelationshipSpecialtyStart DateEnd Date Ty Amin MD PCP - [facility]09/20/23 Mckayla Blas NP [address] [place] [address] PCP - [facility] Mckayla Blas NP Nurse Pract[facility]erE[facility]09/20/23Team MemberRelationshipSpecialtyStart DateEnd Date Ty Amin MD PCP - [facility] Ty Amin MD PCP - [facility]09/20/23 Mckayla Blas NP [address] [place] [address] [place] [address] Mckayla Blas NP [facility]09/20/23Team MemberRelationshipSpecialtyStart DateEnd Date Ty Amin MD PCP - [facility]09/20/23 Mckayla Blas NP [address] [place] [address] PCP [facility] Mckayla Blas NP Nurse PractitionerFamily Medicine09/20/23 REASON [...] BE BASED ON THE PRIMARY CLINICAL RECORDS. [employer] [facility]. provides no warranty or guarantee of the accuracy or completeness of information in this document.
== END 2025-05-08 11:37 | disposition home or self-care (01) ==
LOC: WC 11:36
PROVIDERS: PCP Nurse Practitioner; Visit Provider Physician Assistant
DX: I87.311 Chronic venous hypertension (idiopathic) with ulcer of right lower extremity (principal); L97.812 Non-pressure chronic ulcer of other part of right lower leg with fat layer exposed
CPT/HCPCS: 29581

== ENCOUNTER 2025-05-11 11:43 | Outpatient (OUT) | payer MEDICARE, SELFPAY ==
--- OUTSIDE RECORDS SUMMARY | 2024-12-02 04:30 | XMS_ITS ---
Author Organization The [facility] in [place] Address [address] [place] [address] Care Team Providers Care Digital Asset Manager Name Role Phone Mckayla Blas CNP Primary Care Provider Unavail Armando Carroll Unavailable [phone] REASON FOR VISIT 1YEAR-COPD Encounters Encounter Location Date Provider Diagnosis Pulmonary Medicine [place] [address] [place] [address] 12/02/2024 Armando Yañez Plan Of Treatment No Information Progress Notes * Mitzi MACIAS LDOB:[birth year] (54 yo F)Acc No.[id number]:12/02/2024 UNLOCKED PROGRESS NOTE Follow Up Patient: Mitzi COX :?Armando Yañez, DODOB:1970???Age:54 Y ???Sex:FemaleDate:12/02/2024Phone:[phone]:[address] [place], [place] [address]Pcp:Mckayla Blas CNP Subjective: * Chief Complaints: * 1 . 1YEAR-COPD. * Medical History: Objective: * Vitals: Assessment: Plan: * Treatment: * * Electronic signature of Armando Yañez DO on 05/11/2025 at 11:46 AM ESTSign off status: PendingVisit Status:?N/S N/C (No Show/No Charge) * Provider: Tray Yañez DO Date: 0 12/02/2024 Generated for Printing/Faxing/eTransmitting on:?05/11/2025 11:46 AM EST
--- OUTSIDE RECORDS SUMMARY | 2025-05-11 11:46 | XMS_ITS | Encounter Summary ---
Author Organization [facility] Address [address] [place] [address] Care Team Providers Care Set Up Person Name Role Phone Ty Amin MD Primary Care Provider [phone] Mckayla Blas NP Unavailable [phone] Mckayla Blas NP Unavailable [phone] Encounter Details DateTypeDepartmentCare Team (Latest Contact Info)Xwopohuquwn88/04/2024Clinisync Result Encounter [facility] External Department Unsolicited Provider, [...] relatives?Once a week08/26/2024How often do you attend latter day or spiritism services?More than 4 times per year08/26/2024Do you belong to any clubs or organizations such as latter day groups, unions, fraternal or athletic groups, or school groups?No08/26/2024How often do you attend meetings of the clubs or organizations you belong to?Never08/26/2024re you , , , , never , or living with a partner?Ejjfliz1008/26/2024UDIT-C AnswerDate RecordedQ1: How often do you have [...] heating?Not hard at all08/26/2024PHQ-2AnswerDate RecordedPatient Health Questionnaire-2 Huofv052Finblue mountain hospital, inc. [place] of Occupational Health - Occupational Stress QuestionnaireAnswerDate RecordedDo you feel stress - tense, restless, nervous, or anxious, or unable to sleep at night because yourmind is troubled all the time - these days?Only a zpgvkr4108/26/2024 Exercise Vital SignAnswerDate RecordedOn average, how many [...] homeless or living in a intermediate (including now)?No08/26/2024CommentsUnknownSex and Gender InformationValueDate RecordedSex Assigned at BirthNot on fileLegal Sex Pppagi8509/20/2022 6:50 PM EDTGender IdentityNot on fileSexual OrientationNot on filedocumented as of this encounter Functional Status * AUDIT-C ScoreAnswerDate of ZkpuoseqokPuijfc843/18/2025 6:13 PM Riley, Generic * Q1: How [...] or more drinks on one occasion?AnswerDate of MagqhijmnzSblpksBmdjc12/18/2025 6:13 PM Riley, Generic * Over the past 2 weeks, how often have you been bothered by any of the following problems?QuestionAnswerDate of AssessmentAuthorLittle interest or pleasure in doing thingsNot at all01/26/2025 6:14 PM Marilyn Gibson MA Feeling down, depressed, or hopelessNot at all01/26/2025 6:14 PM Marilyn Gibson MAPatient Health Questionnaire-2 Zglmn014 6:14 PM EDT Marilyn Forman MA * [...] Plan of Treatment DateTypeDepartmentCare Team (Latest Contact Info)Trndodxenll96/20/2025 10:30 AM ESTOffice Visit [facility] [address] [place] [address] Rain Souza MD [address] [place] [address] documented as of this encounter Procedures Procedure NamePriorityDate/TimeAssociated DiagnosisCommentsCT ABDOMEN PELVIS W CON05/12/2024 2:16 PM EST documented in this encounter Results * CT ABDOMEN PELVIS W CON (05/12/2024 2:16 PM EST)Anatomical RegionLaterality ModalityOtherSpecimen (Source)Anatomical Location / LateralityCollection Method / VolumeCollection TimeReceived Time05/12/2024 2:16 PM EST Narrative 05/12/2024 2:19 PM EST [facility] ?[address] ? [place] [address] ? CT Scan Report ? Signed ? Patient: DIONISIO,MITZI L ?MR#: [id number] ?? : 1970 ?Acct:[id number] ?? Age/Sex: 53 / F ?ADM Date: 05/12/24 ?? Loc: CT ? Attending Dr: Gaviota MAYERS ? Ordering Physician: Gaviota Vega ?? Date of Service: 05/12/24 ?? Procedure(s): CT abdomen pelvis w con ?? Accession Number(s): [id number] ? cc: Mckayla Blas NP ? [facility] ? [address] ? [place] [address] ? Patient Name: ?? MITZI MACIAS ? MRN: [id number] ? date: 1970 ?Sex: F ?? Assigned Patient Location: CT ?? Current Patient Location: WC ?? Accession/Order Number: [id number] ?? Exam Date: 05/12/2024 ??11:15 ?Report Date: [...] 1419 ? DD/ 1416 ? TD/TT: ? Staff Accountant: Procedure Note Radiology, Radiologist, MD - 05/12/[address] [address] [address] Scan Report Signed Patient: MITZI MACIAS LMR#: [id number] : 1970Acct:[id number] Age/Sex: 53 / FADM Date: 05/12/24 Loc: CT Attending Dr: Gavoita MAYERS Ordering Physician: Gaviota Vega Date of Service: 05/12/24 Procedure(s): CT abdomen pelvis w con Accession Number(s): [id number] cc: Mckayla Blas NP [place] [address] [place] [id number] Patient Name: MITZI MACIAS MRN: [facility]:[id number] date: 1970 Sex: F Assigned Patient Location: CT Current Patient Location: Accession/Order Number: [id number] Exam Date: 05/12/2024 11:15 Report Date: 05/12/2024 [...] M.D. Signed By:05/12/24 1419 DD/ 1416 TD/TT: Staff Accountant: Authorizing ProviderResult TypeResult StatusGeneric External Data Provider CLINISYNC IMAGINGFinal Result documented in this encounter Visit Diagnoses Not on filedocumented in this encounter Additional Health Concerns AssessmentNoted TimePHQ-9 Depression Total Score: 307 10:08 AM EDT documented as of this encounter Care Teams Team MemberRelationshipSpecialtyStart DateEnd Date Ty Amin MD PCP - GeneralFamily Medicine09/20/23 Mckayla Blas NP [address] [place] [address] PCP - [facility]/ Mckayla Blas NP Nurse PractitionerFamily Medicine09/20/23documented as of this encounter
--- OUTSIDE RECORDS SUMMARY | 2025-05-11 11:46 | XMS_ITS | Encounter Summary ---
Author Organization [facility] Address [address] [place] [address] Care Team Providers Care Terminal Manager Name Role Phone Ty Amin MD Primary Care Provider [phone] Ty Amin MD Primary Care Provider [phone] Mckayla Blas STEEL LAYOUT WORKER Unavailable [phone] Mckayla Blas STEEL LAYOUT WORKER Unavailable [phone] Encounter Details DateTypeDepartmentCare Team (Latest Contact Info)Lgwpinjnepe12/23/2024Clinisync Result Encounter [facility] External Department Unsolicited Andra Alcala PA [address] [place], [place] [phone] Social History Tobacco UseTypesPacks/DayYears UsedDateSmoking Tobacco: Every [...] relatives?Once a week08/26/2024How often do you attend adventism or restorationism services?More than 4 times per year08/26/2024Do you belong to any clubs or organizations such as adventism groups, unions, fraternal or athletic groups, or school groups?No08/26/2024How often do you attend meetings of the clubs or organizations you belong to?Never08/26/2024re you , , , , never , or living with a partner?Mgakcty5708/26/2024UDIT-C AnswerDate RecordedQ1: How often do you have [...] heating?Not hard at all08/26/2024PHQ-2AnswerDate RecordedPatient Health Questionnaire-2 Tflxw696Findavis [facility] [place] of Occupational Health - Occupational Stress QuestionnaireAnswerDate RecordedDo you feel stress - tense, restless, nervous, or anxious, or unable to sleep at night because yourmind is troubled all the time - these days?Only a hmutmq0308/26/2024 Exercise Vital SignAnswerDate RecordedOn average, how many [...] steady place to sleep or slept in [facility] (including now)?No07/10/2023Housing Stability Vital SignAnswerDate RecordedIn the last 12 months, was there a time when you were not able to pay the mortgage or rent on time?No08/26/2024Number of Times Moved in the Last Year Not on file08/26/2024t any time in the past 12 months, were you homeless or living in a skilled nursing (including now)?No08/26/2024CommentsUnknownSex and Gender InformationValueDate RecordedSex Assigned at BirthNot on fileLegal Sex Boqsxy9309/20/2022 6:50 PM EDTGender IdentityNot on fileSexual OrientationNot on filedocumented as of this encounter Functional Status * AUDIT-C ScoreAnswerDate of PkatdlzkqzUhnnec755/18/2025 6:13 PM ESTMychart, Generic * Q1: How [...] or more drinks on one occasion?AnswerDate of TxzjakwzpnVaooidThmsq79/18/2025 6:13 PM Riley Generic * Over the past 2 weeks, how often have you been bothered by any of the following problems?QuestionAnswerDate of AssessmentAuthorLittle interest or pleasure in doing thingsNot at all01/26/2025 6:14 PM Marilyn Gibson MA Feeling down, depressed, or hopelessNot at all01/26/2025 6:14 PM Marilyn Gibson MAPatient Health Questionnaire-2 Vtsef763 6:14 PM EDT Marilyn Fomran MA * QuestionAnswerDate of AssessmentAuthorPatient Health Questionnaire-9 [...] Plan of Treatment DateTypeDepartmentCare Team (Latest Contact Info)Gfvjlepkitq50/20/2025 10:30 AM ESTOffice Visit [facility] [address] [place] [address] Rain Souza MD [address] [place] [address] documented as of this encounter Procedures Procedure NamePriorityDate/TimeAssociated DiagnosisCommentsBLOOD CULTURE 2 Vecobmi8609/10/2023 2:22 PM EST BLOOD CULTURE 0Qajhvox29/04/2024 2:05 PM EST ECG 12-LEAD08/31/2023 6:08 PM [...] BLOOD ORDERABLESFinal ResultPerforming OrganizationAddressCity/State/ZIP Code Phone Number [facility] * BLOOD CULTURE 1 (09/10/2023 [...] 09/02/2023 7:32 AM EST [facility] ?[address] ? [place] [id number] ? Electrocardiograph Report ? Signed ? Patient: MITZI MACIAS L ?MR#: [id number] ?? : 1970 ?Acct:[id number] ?? Age/Sex: 53 / F ?ADM Date: 08/31/23 ?? Loc: [place] ??214-1 ? Attending Dr: Jacqueline Becerra D.O. ? Ordering Physician: Andra Alcala ?? Date of Service: 08/31/23 ?? Procedure(s): ECG 12 lead ?? Accession Number(s): [id number] ? cc: ?[facility] ? Test Date: ?2023-08-31 ?? Pat Name: ? MITZI MACIAS ?Department: ? Room: ? - ?? Gender: ? Female ? Can Stacker: ? : ?1970 ? Requested By: MCKAYLA BERMUDEZHHOLZ ?? Order Number: [id number] ?Reading MD: ?? LAURI ??BALL ? Measurements ?? Intervals ?Newton ? Rate: ? 102 ?P: ?67 ?? [...] 0732 ? DD/ 1808 ? TD/TT: ? Stock Manager: Procedure Note Radiology, Radiologist, MD - 09/02/[address] [address] Electrocardiograph Report Signed Patient: MITZI MACIAS LMR#: [id number] : 1970Acct:[id number] Age/Sex: 53 / FADM Date: 08/31/23 Loc: [place] 214-[address]: Jacqueline Becerra D.O. Ordering Physician: Andra Alcala Date of Service: 08/31/23 Procedure(s): ECG 12 lead Accession Number(s): [id number] cc: [facility] Test Date: 2023-08-31 Pat Name: MITZI MACIAS Department: Room: - Gender: Female Can Stacker: : 1970 Requested By: MCKAYLA BLAS Order Number: [id number] Reading MD: LAURI DIOR Measurements Intervals [place] Rate: 102 P: 67 OR: 144 QRS: 52 QRSD: 72 T: 49 QT: 326 QTc: 385 Interpretive Statements 1120 Sinus tachycardia 4068 Nonspecific Twave abnormality 8102 Low QRS voltage in chest leads 9140 abnormal rhythm ECG Compared to ECG 12/04/2022 21:27:48 Electronically Signed On 09-02-2023 7:31:43 EST by LAURI DIOR Dictated By: Lauri Dior D.O. Signed By:09/02/23 0732 DD/ 1808 TD/TT: Stock Manager: Authorizing ProviderResult TypeResult StatusAmy Cari PACLBIBB MEDICAL CENTERYNC IMAGINGFinal Result documented in this encounter Visit Diagnoses Not on filedocumented in this encounter Care Teams Team MemberRelationshipSpecialtyStart DateEnd Date Ty Amin MD PCP - GeneralFamily Medicine Ty Amin MD PCP - GeneralFamily Medicine09/20/23 Mckayla Blas NP [address] [place] [address] [facility]/ Mckayla Blas NP Nurse PractitionerFamiPhoebe Putney Memorial Hospital09/20/23documented as of this encounter
--- OUTSIDE RECORDS SUMMARY | 2025-05-11 11:46 | XMS_ITS | Clinical Summary ---
Author Organization [facility] Address [id number] [address] [place] [address] Care Team Providers Care Manager Respiratory Name Role Phone Wan Mckayla Rice APRN-THREAD CUTTER TENDER Primary Care Provider Allergies No known active [...] mg/0.5 mL pen injector inject one pen xegbwv8604/12/2020Active DULoxetine (CYMBALTA) 60 mg capsule Take 1 [...] get venous reflux ultrasound. Other chronic pain1ANA asdsvdfm96/11/2021Preop cardiovascular exam 05/28/20202357Pihpccr02/20/2020 Assessment & Plan (06/19/2024 2:16 PM EST): Counseled on smoking cessation for at least 3 minutes. She is willing to quit. Morbid daocelr1905/28/2020BMI 50.0-59.9, adult05/21/2020 Family History Medical HistoryRelationNameCommentsCancerPaternal GrandfatherCancerPaternal GrandmotherHeart diseasePaternal GrandmotherStrokePaternal GrandmotherRelation NameStatusCommentsFatherDeceasedMotherDeceasedPaternal GrandfatherPaternal Grandmother Social History Tobacco UseTypesPacks/DayYears UsedDateSmoking Tobacco: Every DayCigarettes Smokeless Tobacco: NeverAlcohol UseStandard Drinks/WeekCommentsYes0 (1 standard drink = 0.6 oz pure alcohol)RAREChildcareAnswerDate RecordedChildcareUnknown 12/12/2018EmploymentAnswerDate DwotimlpGgocsoqowxJxdknwe92/06/2019Purpose - Life AnswerDate RecordedPurpose and direction in yrvvCikghbs12/06/2021 CommentsUnknownSex and Gender InformationValueDate RecordedSex Assigned at Not on fileLegal ZtoLxgpcr63/06/2015 11:50 AM EDTGender IdentityNot on file Sexual OrientationNot on file Last Filed Vital Signs Vital SignReadingTime TakenCommentsBlood Npvmqapo708/7006/19/2024 11:26 AM EST Xswod434906/19/2024 11:26 AM DDZTykprbvuhye04.7 ??C (98 ??F)06/19/2024 11:26 AM ESTRespiratory Nfvj449708/20/2023 11:26 AM ESTOxygen Zuihmvtyvm06%06/11/2020 9:27 AM ESTInhaled Oxygen Concentration--Dmipgi617.6 kg (374 lb)06/19/2024 11:26 AM CMQKsjgdk760 cm (5' 6.93 )06/19/2024 11:26 AM ESTBody Mass Index58.7108/20/2023 11:26 AM EST Plan of Treatment Health MaintenanceDue DateLast DoneCommentsStatin Use: Eehiufgogpbckg57/17/1971 Depression Vccrozldq81/17/1983Tobacco Xlpddrfox86/17/1983Adult BMI Follow Up Plan1988DTaP,Tdap and Td Vaccines (1 - Tdap)1989Pap Smear1991 Zoster (Shingles) Vaccine (1 of 2)1COVID-19 Vaccine (4 - 2024-26 season)5007/19/2021, 10/28/2020, 10/08/2020Influenza Apgznnu8003/09/2025 05/18/2023, 04/16/2017, 05/10/2016, Additional history existsAdult BMI Screening Medical Devices Not on file Insurance Care Teams Team MemberRelationshipSpecialtyStart DateEnd Date Mckayla Blas, [employer]THREAD CUTTER TENDER [address] [place] [address] PCP - GeneralNurse Practitioner09/25/18
--- OUTSIDE RECORDS SUMMARY | 2025-05-11 11:46 | XMS_ITS | Encounter Summary ---
Author Organization [facility] Address [address] [place] [address] Care Team Providers Care Distribution Collection Operator Name Role Phone Ty Amin MD Primary Care Provider [phone] Mckayla Blas NP Unavailable [phone] cMkayla Blas NP Unavailable [phone] Encounter Details DateTypeDepartmentCare Team (Latest Contact Info)Esszepcjucu16/17/2024Clinisync Result Encounter [facility] External Department Unsolicited Provider, [...] relatives?Once a week08/26/2024How often do you attend religious or quaker services?More than 4 times per year08/26/2024Do you belong to any clubs or organizations such as religious groups, unions, fraternal or athletic groups, or school groups?No08/26/2024How often do you attend meetings of the clubs or organizations you belong to?Never08/26/2024re you , , , , never , or living with a partner?Oefqzjv7708/26/2024UDIT-C AnswerDate RecordedQ1: How often do you have [...] heating?Not hard at all08/26/2024PHQ-2AnswerDate RecordedPatient Health Questionnaire-2 Qctyi623Fin[facility]igh[facility] [place] [facility] Occup[facility] - Occupational Stress QuestionnaireAnswerDate RecordedDo you feel stress - tense, restless, nervous, or anxious, or unable to sleep at night because yourmind is troubled all the time - these days?Only a aofebs4508/26/2024 Exercise Vital SignAnswerDate RecordedOn average, how many [...] in a [place] (including now)?No08/26/2024CommentsUnknownSex and Gender InformationValueDate RecordedSex Assigned at BirthNot on fileLegal Sex Qznpai8709/20/2022 6:50 PM EDTGender IdentityNot on fileSexual OrientationNot on filedocumented as of this encounter Functional Status * AUDIT-C ScoreAnswerDate of ZxtjtakymhYeypzf407/18/2025 6:13 PM Riley, Generic * Q1: How [...] or more drinks on one occasion?AnswerDate of DhbcmeiuxjDdmnzeAihpv73/18/2025 6:13 PM Riley, Generic * Over the past 2 weeks, how often have you been bothered by any of the following problems?QuestionAnswerDate of AssessmentAuthorLittle interest or pleasure in doing thingsNot at all01/26/2025 6:14 PM Marilyn Gibson MA Feeling down, depressed, or hopelessNot at all01/26/2025 6:14 PM Marilyn Gibson MAPatient Health Questionnaire-2 Gutat887 6:14 PM EDT Marilyn Forman MA * [...] Plan of Treatment DateTypeDepartmentCare Team (Latest Contact Info)Wlkxvocwwyx88/20/2025 10:30 AM ESTOffice Visit [facility] [address] [place] [address] Rain Souza MD [address] [place] [address] documented as of this encounter Procedures Procedure NamePriorityDate/TimeAssociated DiagnosisCommentsSEGMENTAL BLOOD DRDXWIZR93/17/2024 11:20 AM EDT documented in this encounter Results * SEGMENTAL BLOOD PRESSURE (04/24/2024 11:20 AM EDT)Anatomical RegionLaterality ModalityRadiographic ImagingSpecimen (Source)Anatomical Location / Laterality Collection Method / VolumeCollection TimeReceived Time04/24/2024 11:20 AM EDT Narrative 04/24/2024 11:23 AM EDT [facility] ?[address] ? [place] [address] ?Vein Report ? Signed ? Patient: MACIAS,MITZI L ?MR#: [id number] ?? : 1970 ?Acct:[id number] ?? Age/Sex: 53 / F ?ADM Date: 04/24/24 ?? Loc: VC ? Attending Dr: Rafael Gongora ? Ordering Physician: Rafael Gongora ?? Date of Service: 04/24/24 ?? Procedure(s): VC SEGMENTAL PRESSURES ?? Accession Number(s): [id number] ? cc: Mckayla Blas NP; Rafael Gongora ? [facility] ? [address] ? [place] [address] ? Patient Name: ?? MITZI MACIAS ? MRN: [id number] ? date: 1970 ?Sex: F ?? Assigned Patient Location: VC ?? Current Patient Location: VC ?? Accession/Order Number: [id number] ?? Exam Date: 04/24/2024 ??10:25 ?Report Date: [...] 124, 106 ?? DPA: 108, 105 ?? AUGER OPERATOR: 100, 91 ?? 1st Toe: 124, 142 [...] ?04/24/243 ? DD/ 1120 ? TD/TT: ? Information Security Specialist: Procedure Note Radiology, Radiologist, MD - 04/24/[address] [address] Vein Report Signed Patient: MITZI MACIAS LMR#: [id number] : 1970Acct:[id number] Age/Sex: 53 / FADM Date: 04/24/24 Loc: Attending Dr: Rafael Gongora Ordering Physician: Rafael Gongora Date of Service: 04/24/24 Procedure(s): VC SEGMENTAL PRESSURES Accession Number(s): [id number] cc: Mckayla Blas LINE INSTALLER TROLLEY; Rafael Gongora The [address] [address] Patient Name: MITZI MACIAS MRN: [id number] date: 1970 Sex: F Assigned Patient Location: Current Patient Location: VC Accession/Order Number: [id number] Exam Date: 04/24/2024 10:25 Report Date: 04/24/2024 11:20 At the request of: RAFAEL GONGORA Procedure: VC SEGMENTAL PRESSURES EXAM: VC SEGMENTAL PRESSURES HISTORY: R09.89 COMPARISON: None. FINDINGS: Segmental pressures presented as follows (right, left) in mmHg. Brachial: 169, 166 Upper thigh: Not obtained Lower thigh: 129, 119 Calf: 124, 106 DPA: 108, 105 AUGER OPERATOR: 100, 91 1st Toe: 124, 142 [...] M.D. Signed By:04/24/24 1123 DD/ 1120 TD/TT: Information Security Specialist: Authorizing ProviderResult TypeResult StatusGeneric External Data ProviderIMG XR PROCEDURESFinal Result documented in this encounter Visit Diagnoses Not on filedocumented in this encounter Additional Health Concerns AssessmentNoted TimePHQ-9 Depression Total Score: 307/05/2024 10:08 AM EDT documented as of this encounter Care Teams Team MemberRelationshipSpecialtyStart DateEnd Date Ty Amin MD PCP - GeneralFamily Medicine09/20/23 Mckayla Blas NP [address] [place] [address] PCP - [facility]/ Mckayla Blas NP Nurse PractitionerFamily Medicine09/20/23documented as of this encounter
--- OUTSIDE RECORDS SUMMARY | 2025-05-11 11:46 | XMS_ITS | Encounter Summary ---
Author Organization [facility] Address [address] [place] [address] Care Team Providers Care Supervisor Cigar Processing Name Role Phone Ty Amin MD Primary Care Provider [phone] Mckayla Blas NP Unavailable [phone] Mckayla Blas NP Unavailable [phone] Encounter Details DateTypeDepartmentCare Team (Latest Contact Info)Oaeggiiqytm24/04/2024Clinisync Result Encounter [facility] External [facility] Unsolicited Provider, [...] relatives?Once a week08/26/2024How often do you attend hindu or samaritan services?More than 4 times per year08/26/2024Do you belong to any clubs or organizations such as hindu groups, unions, fraternal or athletic groups, or school groups?No08/26/2024How often do you attend meetings of the clubs or organizations you belong to?Never08/26/2024re you , , , , never , or living with a partner?Eplbhiw2808/26/2024UDIT-C AnswerDate RecordedQ1: How often do you have [...] heating?Not hard at all08/26/2024PHQ-2AnswerDate RecordedPatient Health Questionnaire-2 Ppyxi087[facility] [place] of Occupational Health - Occupational Stress QuestionnaireAnswerDate RecordedDo you feel stress - tense, restless, nervous, or anxious, or unable to sleep at night because yourmind is troubled all the time - these days?Only a ucqeei3408/26/2024 Exercise Vital SignAnswerDate RecordedOn average, how many [...] or living in a nursing home (including now)?No08/26/2024CommentsUnknownSex and Gender InformationValueDate RecordedSex Assigned at BirthNot on fileLegal Sex Nzlyme9709/20/2022 6:50 PM EDTGender IdentityNot on fileSexual OrientationNot on filedocumented as of this encounter Functional Status * AUDIT-C ScoreAnswerDate of YmakfmqueeFbmfxm129/18/2025 6:13 PM Riley, Generic * Q1: How [...] or more drinks on one occasion?AnswerDate of MibtcgvrxjIspuxjObjbl75/18/2025 6:13 PM Riley, Generic * Over the past 2 weeks, how often have you been bothered by any of the following problems?QuestionAnswerDate of AssessmentAuthorLittle interest or pleasure in doing thingsNot at all01/26/2025 6:14 PM Marilyn Gibson MA Feeling down, depressed, or hopelessNot at all01/26/2025 6:14 PM Marilyn Gibson MAPatient Health Questionnaire-2 Pihnz166 6:14 PM EDT Marilyn Forman MA * [...] Plan of Treatment DateTypeDepartmentCare Team (Latest Contact Info)Ownrionwwtw72/20/2025 10:30 AM ESTOffice Visit [facility] [address] [place] [address] Rain Souza MD [address] [place] [address] documented as of this encounter Procedures Procedure NamePriorityDate/TimeAssociated DiagnosisCommentsMR LUMBAR SPINE WO CON05/12/2024 2:41 PM EST documented in this encounter Results * MR LUMBAR SPINE WO CON (05/12/2024 2:41 PM EST)Anatomical RegionLaterality ModalityOtherSpecimen (Source)Anatomical Location / LateralityCollection Method / VolumeCollection TimeReceived Time05/12/2024 2:41 PM EST Narrative 05/12/2024 2:43 PM EST [facility] ?[address] ? [place] [address] ? Magnetic Resonance Report ? Signed ? Patient: MACIAS,MITZI L ?MR#: [id number] ?? : 1970 ?Acct:[id number] ?? Age/Sex: 53 / F ?ADM Date: 05/12/24 ?? Loc: MRI ? Attending Dr: Celestina Chin JOB SETTER [employer]ONING ? Ordering Physician: Celestina Chin NP ?? Date of Service: 05/12/24 ?? Procedure(s): MR lumbar spine wo con ?? Accession Number(s): [id number] ? cc: Mckayla Blas NP; Celestina Chin NP ? [facility] ? [address] ? [place] [address] ? Patient Name: ?? MITZI MACIAS ? MRN: [id number] ? date: 1970 ?Sex: F ?? Assigned Patient Location: MRI ?? Current Patient Location: CT ?? Accession/Order Number: [id number] ?? Exam Date: 05/12/2024 ??09:21 ?Report Date: [...] 1443 ? DD/ 1441 ? TD/TT: ? House Wirer Helper: Procedure Note Radiology, Radiologist, MD - 05/12/[address] [address] Magnetic Resonance Report Signed Patient: MITZI MACIAS LMR#: [id number] : 1970Acct:[id number] Age/Sex: 53 / FADM Date: 05/12/24 Loc: MRI Attending Dr: Celestina Chin NP Ordering Physician: Celestina Chin NP Date of Service: 05/12/24 Procedure(s): MR lumbar spine wo con Accession Number(s): [id number] cc: Mckayla Blas NP; Celestina Chin NP [address] [address] Patient Name: MITZI MACIAS MRN: [id number] date: 1970 Sex: F Assigned Patient Location: MRI Current Patient Location: CT Accession/Order Number: [id number] Exam Date: 05/12/2024 09:21 Report Date: 05/12/2024 [...] Gardner M.D. Signed By:05/12/241442 DD/ 40 TD/TT: House Wirer Helper: Authorizing ProviderResult TypeResult StatusGeneric External Data Provider CLINIS[facility]NC IMAGINGFinal Result documented in this encounter Visit Diagnoses Not on filedocumented in this encounter Additional Health Concerns AssessmentNoted TimePQ-9 Depression Total Score: 307 10:08 AM EDT documented as of this encounter Care Teams Team MemberRelationshipSpecialtyStart DateEnd Date Ty Amin MD PCP - GeneralFamily Medicine09/20/23 Mckayla Blas NP [address] [place] [address] PCP - [facility]/ Mckayla Bals NP Nurse PractitionerFamily Medicine09/20/23documented as of this encounter
--- OUTSIDE RECORDS SUMMARY | 2025-05-11 11:47 | XMS_ITS | Clinical Summary ---
Author Organization [facility] Address [address] [place] [address] Care Team Providers Care Supervisor Of Officials Name Role Phone Ty Amin MD Primary Care Provider [phone] Mckayla Blas NP Unavailable [phone] Allergies No known active allergies Medications [...] (six) hours if needed for wheezingActive HYDROcodone-acetaminophen ([place]) 5-325 MG tablet 1 tablet as needed [...] other circulatory complications ([facility]) USE TO TEST BLOOD SUGAR 4 TIMES DAILY 400 strip 4Active baclofen (Lioresal) 10 MG tablet Take 10 mg by mouth in the morning and 10 mg in the evening and 10 mg before bedtime.4Active naloxone (Narcan) 4 mg/0.1 mL nasal spray Administer 4 mg into affected nostril(s) if nyonjn144Active nicotine (Nicoderm, Step 1) 21 MG/24HR patch [...] DAYS 5Active ergocalciferol (Vitamin D2) 1.25 MG (57409 UT) capsule Indications:Vitamin D deficiency, unspecifiedTake 1 [...] use of insulin ([facility])Chew 1 tablet (81 mg) Daily 90 tablet [...] use of insulin ([facility])Inject 58 Units under the skin in the morning and 58 Units before bedtime. 104.4 mL 107501/6Active insulin glargine (Lantus SoloStar) 100 UNIT/ML pen Indications:Type 2 diabetes mellitus with hyperglycemia, with long-term current use of insulin ([facility])INJECT 58 UNITS SUBCUTANEOUSLY TWICE A DAY 105 mL 5Active Tirzepatide (Mounjaro) 15 MG/0.5ML solution auto-injector Indications:Type 2 diabetes mellitus with other circulatory complications ([facility]) Inject 15 mg under the skin 1 (one) time per week 6 mL 5Active varenicline (Chantix) 1 MG tablet Indications:Tobacco user,Encounter for smoking cessation counselingTAKE 1 TABLET BY MOUTH IN THE MORNING AND 1 TABLET BEFORE BEDTIME. TAKE WITH FULL GLASS OF WATER. 60 tablet 5Active Active Problems ProblemNoted DateDiagnosed DateStasis dermatitis with ulcer of right lower extremity due to peripheral venous xyeorayhcexm03/03/3728Ejuxd40/03/2025 Assessment & Plan (12/09/2024 7:26 AM EDT): Tylenol prn fever Finish atb's Cellulitis of left lower viboczkzy59/03/2025 Assessment & Plan (12/09/2024 11:27 AM EDT): Finish atbs Keep appt with wound care A febrile Will call me if worsening in sxs Cigarette nicotine dependence without gicsxgsbfnzw61/21/2025 Assessment & Plan (10/27/2024 2:40 PM EDT): Is currently using chantix, and is doing well, less desire, smoking less Vitamin D deficiency, yckenclxvuy68/21/2025Gastro-esophageal reflux disease without zazkhebbbhs08/21/2025 Assessment & Plan (01/26/2025 7:51 AM EDT): Recommendations: freq small meals, nothing to eat or drink at least 2 hours prior to bed, limit caffeine, alcohol, as well as spicy foods Meds to limit or avoid if possible: NSAIDS Elevate HOB if possible Current meds: ompeprazole Morbid (severe) obesity due to excess tvipywpq17/19/2025 Assessment & Plan (01/26/2025 6:46 PM EDT): [...] wrapped, 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 as possible shelter current use of inhaled qotbgxt8908/27/2024Non-pressure chronic ulcer of other part of left lower leg limited to breakdown of skin08/27/2024Vitamin iymvvmkrny72/19/2025ntibiotic-induced yeast oyzwzyaua78/19/2025hronic diastolic heart rimwtrm6708/08/2024 Assessment & Plan (01/26/2025 7:52 AM EDT): [...] counseling 07/14/2024ritical limb ischemia of right lower ilbmucjou77/12/2024 Assessment & Plan (07/14/2024 7:32 PM EST): Saw vascular, does have narrowing in arteries in legs, and thus the wounds not healing At this point they strongly urge to quit smoking or risk limb amputation Cont asa and statin Also good blood pressure and sugar control 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 Does have left OM, will treat for this and if not better can try ubrelvy #3 samples given: Lot [id number], exp 03/2025 Mixed zgdgstopuyju11/08/5642Bsxomporh96/08/2024Encounter for screening mammogram for malignant neoplasm of vhhbnz2511/01/2023Non-seasonal allergic rhinitis 11/01/2023andidiasis of howdjr5011/01/2023 Assessment & Plan (11/01/2023 11:21 AM EDT): Skin care, Dwsjrhwh32/11/2024 Assessment & Plan (01/26/2025 6:44 PM EDT): elavil Radiculopathy, lumbar nfnpxm8609/17/2023 Assessment & Plan (07/14/2024 7:36 PM EST): [...] is necessary they take over prescribing Pancreatitis ([facility])09/17/2023OPD prpblsavzxfs19/11/2024 Assessment & Plan (12/09/2024 11:26 AM EDT): [...] non labored and no cyanosis noted Venous jwbrbvhivolvq42/11/2024 Assessment & Plan (11/01/2023 11:17 AM EDT): Open wounds refer to [facility] Wound Care Pulmonary eaqgydzsnnrl63/11/2024 Assessment & Plan (01/26/2025 7:52 AM EDT): Has seen [facility] Cardiology Assessment & Plan (12/09/2024 7:23 AM EDT): Has seen [facility] Cardiology Assessment & Plan (11/15/2023 3:49 PM EDT): Saw [facility] Cardiology See notes Going to see Pulmonary Assessment & Plan (09/27/2023 1:03 PM EDT): Needs to wear her PAP I am also going to have her see [facility] Cardiology as well PAD (peripheral artery disease)09/17/2023 Assessment & Plan (10/27/2024 2:38 PM EDT): Asa, statin Quit smoking BP and DM control Assessment & Plan (07/14/2024 7:32 PM EST): Asa, statin Quit smoking BP and DM control Malignant neoplasm of cervix uteri, ikhnfvzpwjx37/11/2024 Assessment & Plan (08/27/2024 7:33 AM EST): Had in the past, had hysterectomy Ufcxazuxqza72/11/2024Unilateral primary osteoarthritis, right hip09/17/2023 Chronic pain of both knees09/17/20231267Etdwclhaxamsbx09/11/2024 Assessment & Plan (01/26/2025 7:49 AM EDT): On statin therapy Check labs yearly and prn dose changes Assessment & Plan (08/27/2024 7:36 AM EST): On statin therapy Check labs yearly and prn dose changes Decreased functional /11/2024drenal mass 1 cm to 4 cm in diameter 09/17/2023 Assessment & Plan (07/14/2024 7:33 PM EST): Continue with Urology Kidney stone09/17/2023 Assessment & Plan (07/14/2024 7:32 PM EST): Continue with Urology Bjimfarknxp19/11/2024Vaginal yeast lhyspcgcf18/09/2024 Assessment & Plan (01/26/2025 6:46 PM EDT): [...] reach out to DME for help Diabetic csqdeeukcv40/02/2024 Assessment & Plan (01/26/2025 7:53 AM EDT): [...] spiriva Will trial breztri: #2 samples given [id number], exp 03/03, rinse mouth after use Give [...] no changes in inhalers Recommend quitting smoking Obbuni0407/10/2023 Assessment & Plan (01/26/2025 6:44 PM EDT): Current meds: albuterol, duoneb, 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 Assessment & Plan (08/27/2024 7:30 AM EST): Current meds: albuterol, duoneb, 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 Assessment & Plan (01/17/2024 12:36 PM EDT): Cont w inhalers, pulmonology Quit smoking Rfnzmaknwvnu24/02/2024 Assessment & Plan (01/26/2025 7:52 AM EDT): [...] from hospital, lost script I did contact [facility] in [place], they will get another fill on this and have ready for patient Fu in 4 weeks Assessment & Plan (07/10/2023 11:59 AM EST): Stable on current dose of meds Type 2 diabetes mellitus with complication, with long-term current use of hkpuqsw1807/10/2023 Assessment & Plan (01/26/2025 7:50 AM EDT): [...] odonnell for management of diabetes Anxiety and /02/2024 Assessment & Plan (01/26/2025 6:46 PM EDT): [...] discussed skin care regimines as well RAGHU ijdcumqo93/11/2939Wsotylucslbw61/19/2018 Overview (09/17/2023): borderline Gout10/25/2017 Resolved Problems ProblemNoted [...] left ear without spontaneous rupture of tympanic tzcyiuhm24lass 3 severe obesity with serious comorbidity and body mass index (BMI) of 50.0 to 59.9 in adult09/27/2023 04/14/20244799Owkalvldl13/11/202404/GERD (gastroesophageal reflux disease) Assessment & Plan (10/27/2024 [...] (BMI) of 60.0 to 69.9 in adult/bdominal Encounters DateTypeDepartmentCare EnsuHcbwzkgcmis40/01/2025Refill [facility] [address] [place] [address] Mckayla Blas NP Tobacco user; Encounter for smoking cessation smtoppteai08/22/2025Refill [facility] [address] [place] [address] Amber Pinzon LPN Type 2 diabetes mellitus with other circulatory complications (HCC)02/26/2025 Refill [facility] [address] [place] [address] Rain Odonnell MD Type 2 diabetes mellitus with other circulatory complications (HCC)02/18/2025 Abstract [facility] [address] [place] [address] Mckayla Blas NP 02/14/2025Refill [facility] [address] [place] [address] Rain Odonnell MD Type 2 diabetes mellitus with hyperglycemia, with long-term current use of insulin (HCC)from Last 3 Months Immunizations ImmunizationAdministration DatesNext DueInfluenza Whole05/02/2013Influenza, U4L6-441363/09/2017,05/10/2016Influenza, Dufsidvpahl63/10/2023,04/16/2017, 05/10/2016Influenza, injectable, zzojkhngibes11/10/2023,05/02/2013MMR01/29/1998 Pneumococcal Polysaccharide IYIB6209 Family History Medical HistoryRelationNameCommentsNo Known ProblemsFatherVaricose veinsFather's [...] other written material from your doctor or pharmacy?Uahilx5408/26/2024Humiliation, Afraid, Rape, and Kick questionnaireAnswerDate RecordedWithin the [...] week08/26/2024How often do you attend hinduism or quaker services?More than 4 times per year 08/26/2024Do you belong to any clubs or organizations such as hinduism groups, unions, fraternal or athletic groups, or school groups?No08/26/2024How often do you attend meetings of the clubs or organizations you belong to?Never08/26/2024 Are you , , , , never , or living with a partner?Ljcaswi8708/26/2024UDIT-CAnswerDate RecordedQ1: How often do you have a [...] all08/26/2024PHQ-2AnswerDate RecordedPatient Health Questionnaire-2 Score0 01/26/2025[facility] [place] [facility] - Occupational Stress QuestionnaireAnswerDate RecordedDo you feel stress - tense, restless, nervous, or anxious, or unable to sleep at night because yourmind is troubled all the time - these days?Only a oogvfy3008/26/2024Exercise Vital SignAnswerDate Recorded On average, how many [...] or living in a nursing home (including now)?No08/26/2024 CommentsUnknownSex and Gender InformationValueDate RecordedSex Assigned at BirthNot on fileLegal AkrEiqrfg12/15/2023 6:50 PM EDTGender IdentityNot on fileSexual OrientationNot on file Last Filed Vital Signs Vital SignReadingTime TakenCommentsBlood Zvkjrkdu039/70001/29/2025 9:48 AM EDT Lmgbn9078/24/2025 9:48 AM ULQSeixhgcdojq99.9 ??C (98.5 ??F)01/26/2025 6:11 PM EDTRespiratory Mlyl727101/29/2025 9:48 AM EDTOxygen Cwvkrzjxtg40%01/29/2025 9:48 AM EDTInhaled Oxygen Concentration--Xbhiae025 kg (360 lb)01/29/2025 9:48 AM EDT Aowghr875.2 cm (5' 7 )01/29/2025 9:48 AM EDTBody Mass Index56.3807 9:48 AM EDT Plan of Treatment DateTypeDepartmentCare Team (Latest Contact Info)Jtorktprayr41/20/2025 10:30 AM ESTOffice Visit [facility] [address] [place] [address] Rain Odonnell MD [address] [place] [address] Health MaintenanceDue DateLast DoneCommentsCT Tubsrmjzwdut32/17/1971Colonoscopy 1970FIT1970FOBT1970 3284Dmfewmmipdgjf53/17/1971DTaP/Tdap/Td Vaccines (1 - Tdap)1977Hepatitis B Vaccines (1 of 3 - 19+ 3-dose series) 1989HPV/Arxtup4808/25/2000Pap Smear/, 10/08/2015Mammogram 506/01/2024, 12/14/2023, 11/22/2022OVID-19 Vaccine ( season)/05/2022, 10/28/2020, 10/08/2020Influenza Vaccine (#1) /04/2023, 05/18/2023, 04/16/2017, Additional history exists Colorectal Cancer Pcczkcwac40/26/2026FIT-DNAMMR Vaccines Giooalkkk82/24/1998Pneumococcal Vaccine: Pediatrics (0 to 5 Years) and At-Risk Patients (6 to 64 Years)Aged Out04/16/2017No longer eligible based on patient's age to complete this topicCervical Cancer ScreeningDiscontinuedHIB VaccinesAged OutNo longer eligible based on patient's age to complete this topicHPV Vaccines Aged OutNo longer eligible based on patient's age to complete this topic Hepatitis A VaccinesAged OutNo longer eligible based on patient's age to complete this topicIPV VaccinesAged OutNo longer eligible based on patient's age to complete this topicMeningococcal B VaccineAged OutNo longer eligible based on patient's age to complete this topicMeningococcal VaccineAged OutNo longer eligible based on patient's age to complete this topicRotavirus VaccinesAged Out No longer eligible based on patient's age to complete this topic Procedures Procedure NamePriorityDate/TimeAssociated DiagnosisCommentsMM TOMOSYNTHESIS SCREENING BI12/14/2023 11:21 AM EDT from Last 3 Months or Most Recently Relevant to Health Maintenance Results * MM TOMOSYNTHESIS SCREENING BI (12/14/2023 11:21 AM EDT)Anatomical Region LateralityModalityOtherSpecimen (Source)Anatomical Location / Laterality Collection Method / VolumeCollection TimeReceived Time12/14/2023 11:21 AM EDT Narrative 12/14/2023 11:22 AM EDT [facility] ?[address] ? [place] [address] ? Mammography Report ? Signed ? Patient: MACIAS,SINA L ?MR#: [id number] ?? : 1970 ?Acct:[id number] ?? Age/Sex: 53 / F ?ADM Date: 12/12/24 ?? Loc: MAMMO ? Attending Dr: Mckayla Blas CONCRETE HANDLER ? Ordering Physician: Mckayla Blas NP ?Results: ? Date of Service: 12/13/23 ?Follow Up: ? Procedure(s): MM tomosynthesis screening BI ?? Accession Number(s): [id number] ? cc: Mckayla Blas NP ? Patient Name: ? SINA MACIAS ? MR#: [id number] ? : 1970 ? Exam Date: 12/13/2023 [...] at age ??75. ? LOCATION: ? [facility] ? BREAST COMPOSITION: ? The [...] By: ?Noel Ivan M.D. ? Signed By: ?12/14/23 1122 ? DD/ 1121 ? TD/TT: ? Litigation Specialist: Procedure Note Radiology, Radiologist, - 12/14/2023 [place] [address] Mammography Report Signed Patient: SINA MACIAS R#: [id number] : 1970Acct:[id number] Age/Sex: 53 / FADM Date: 12/13/23 Loc: MAMMO Attending Dr: Mckayla Blas NP Ordering Physician: Mckayla Blasesults: Date of Service: 12/13/23Follow Up: Procedure(s): MM tomosynthesis screening BI Accession Number(s): [id number] cc: Mckayla Blas NP Patient Name: SINA MACIAS MR#: [id number] : 1970 Exam Date: 12/13/2023 Ordering Doctor: [...] at age 75. LOCATION: [facility] BREAST COMPOSITION: The breasts are [...] M.D. Signed By:12/14/23 1122 DD/ 1121 TD/TT: Litigation Specialist: Authorizing ProviderResult TypeResult StatusLisa Wan NPCLINISYNC IMAGING Final Result from Last 3 Months or Most Recently Relevant to Health Maintenance Insurance Care Teams Team MemberRelationshipSpecialtyStart DateEnd Date Ty Amin MD PCP - GeneralFamaly Medicine09/20/23 Mckayla Blas NP Nurse PractitionerRoslindale General Hospital Medicine09/20/23
--- OUTSIDE RECORDS SUMMARY | 2025-05-11 11:47 | XMS_ITS | Patient Health Record ---
Author Organization [facility] [place] Address [address] [place] [address] Care Team Providers Care Braid Cutter Name Role Phone Mckayla Blas CNP Primary Care Provider Unavail able Armanod Yañez Unavailable [phone] Allergies No Known Allergies Results Component Value Reference Range Notes CBC AUTO DIFF (Not yet revie wed by provider) Interpretation: Performing Lab: Notes/Report: [facility] , White Blood Count 12.8 4.0-11.0 10 3/uL Red Blood Count5.524.20-5.40 10 6/pIJbkxjjcryv23.112.0-16.0 g/rQXigoxxbhhh42.9 36.0-48.0 %Mean Corpuscular Motpno13.281.0-99.0 fLMean Corpuscular Hemoglobin 29.226.7-34.0 pgMean Corpuscular HGB Conc31.629.9-35.2 g/dLRed Cell Distribution Width14.611.0-15.0 %Platelet Dxefs008749-833 10 3/uLMean Platelet Qtlwwe76.89.5- 13.5 fLNeutrophils Percent Auto67.043.0-75.0 %Lymphocytes Percent Auto25.120.5- 60.0 %Monocytes Percent Auto5.21.7-12.0 %Eosinophils Percent Auto1.90.9-7.0 % Basophils Percent Auto0.50.2-2.0 %Immature Granulocytes Pct Auto0.30.0-0.5 % Neutrophils Absolute Auto8.61.4-6.5 10 3/uLLymphocytes Absolute Auto3.21.2-3.8 10 3/uLMonocytes Absolute Auto0.70.3-0.8 10 3/uLEosinophils Absolute Auto0.20.0- 0.7 10 3/uLBasophils Absolute Auto0.10.0-0.1 10 3/uLImmature Granulocytes Abs Auto0.040.00-0.03 10 3/uLPerforming Lab:see noteML - [facility] LB PROF CHEM 8 (BAS METB) (Not yet reviewed by provider) Interpretation: Performing Lab: Notes/Report: [facility] ,Kbirde019732-844 mmol/LPotassium4.23.5-5.1 mmol/TPtfoxtap45434-588 mmol/LCarbon Eekbjql88.521.0-32.0 mmol/LAnion Gap11.7Dhlgevb72169-961 mg/dLBlood Urea Araqustl38.07.0-18.0 mg/dLCreatinine0.820.55-1.02 mg/dLEstimated GFR ( Katty>60>=60 mL/min/1.73m 2Estimated GFR (Non- Kristen>60>=60 mL/min/1.73m 2BUN Creatinine Ratio19.8Yaxhnss6.08.5-10.1 mg/dLPerforming Lab:see noteML - [facility] LB Reason For Referral No Information Medications [...] Duration: 90 DaysActiveVitamin D (Ergocalciferol) 1.25 MG (45443 UT)Oral; Duration: 90 DaysActiveBreztri Aerosphere 160-9-4.8 MCG/ACTInhalation; Duration: 30 DaysActiveSimvastatin 10 MG Oral; Duration: 90 DaysActiveRoflumilast 250 MCGOral; Duration: 28 DaysActive Immunizations Vaccine Route Administration Date Status Comme nts Flu, Fluzone (68190) 6-35mo, multi-dose vial (2325-9159) Unknown 05/18/2023 Administered Pneumococcal (Pneumovax 23)Fdmaltd0104/16/20174794AhqdjvzveabzCIGL-EVW-0 (COVID 19 Pfizer 30mcg/0.3mL)Bdmcyjz0507/19/2021dministered Social History Tobacco Use: Social History Observation [...] due to ty pe 2 diabetes mellitus (2183461783552) Type 2 diabetes mellitus with foot ulcer (E11.621) ActiveconfirmedProblemMorbid obesity (disorder) (365412671)Morbid (severe) obesity due to excess calories (E66.01)ActiveconfirmedProblemVenous ulcer of lower extremity due to chronic peripheral venous hypertension (177618639191144) Chronic venous hypertension (idiopathic) with ulcer of left lower extremity (I87.312)ActiveconfirmedProblemChronic non-pressure ulcer of calf extending to fat level (44666859973488528)Non-pressure chronic ulcer of other part of right lower leg with fat layer exposed (L97.812)ActiveconfirmedProblemChronic ulcer of skin of lower leg (disorder) (26608137395513246)Non-pressure chronic ulcer of other part of left lower leg limited to breakdown of skin (L97.821)Active confirmedProblemNon-pressure chronic ulcer of other part of left lower leg with fat layer exposed (L97.822)ActiveconfirmedProblemLong-term current use of inhaled steroid (600516241)MCC (current) use of inhaled steroids (Z79.51) ActiveconfirmedProblemCOPD - Chronic obstructive pulmonary disease (04224302) COPD (chronic obstructive pulmonary disease) (J44.9)ActiveconfirmedProblem Gastroesophageal reflux disease (725919882)GERD (gastroesophageal reflux disease) (K21.9)ActiveconfirmedProblemHypertension (54767820)HTN (hypertension) (I10)ActiveconfirmedProblemObstructive sleep apnea syndrome (62357119)DANIEL (obstructive sleep apnea) (G47.33)ActiveconfirmedProblemLumbar radiculopathy (204466636)Lumbar radiculopathy (M54.16)ActiveconfirmedProblemDiabetes mellitus type 2 (disorder) (90251410)DM2 (diabetes mellitus, type 2) (E11.9)Active confirmedProblemMental disorder caused by drug (286191482)Cigarette nicotine dependence with nicotine-induced disorder (F17.219)ActiveconfirmedProblem Leukocytosis (228383696)Leukocytosis (D72.829)ActiveconfirmedProblemAcute exacerbation of chronic obstructive airways disease (033180356)COPD with exacerbation (J44.1)ActiveconfirmedProblemLong-term current use of insulin (831751062)Current use of insulin (Z79.4)ActiveconfirmedProblemIdiopathic chronic venous hypertension of both lower extremities with ulcer (I87.313)Active confirmedProblemNon-prs chr ulcer oth prt l low leg limited to brkdwn skin (L97.821)ActiveconfirmedProblemStasis dermatitis co-occurrent with venous ulcer of right lower extremity due to chronic peripheralvenous hypertension (664070447289984)Idiopathic chronic venous hypertension of right lower extremity with ulcer (I87.311)ActiveconfirmedProblemChronic venous hypertension with ulcer and inflammation involving left side (I87.332)ActiveconfirmedProblemAbnormal arterial blood gas (942532936)Elevated carbon dioxide level (R79.81)Active confirmedProblemSkin ulcer of right knee, limited to breakdown of skin (L97.811) ActiveconfirmedProblemDiabetes mellitus (47709950)Diabetes mellitus (E11.9) Activeconfirmed Encounters Encounter Location Date Provider Diagnosis Pulmonary Medicine [address] [address] 12/02/2024 Armando Yañez Plan Of Treatment Pending Test Test Name Order Date CBC AUTO DIFF 08/27/2024 PROF CHEM 8 (BAS METB) 08/27/2024 VC SEGMENTAL PRESSURES 04/24/2024 Insurance Providers Payer Name Payer Address Payer Phone Subscriber Number Group Number Insured Name Patient Relationship to Insured Coverage Start Date Coverage End Date [facility] [employer]IC[facility] [address] [place] [phone] [id number] Ottoniel Macias - patient is the insured [...] (hyperlipidemia) E78.5 Elevated carbon dioxide level R79.81 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
--- OUTSIDE RECORDS SUMMARY | 2025-05-11 11:47 | XMS_ITS | Clinical Summary ---
Author Organization [facility] Address [address] [place] [address] Care Team Providers Care Vp Lab Name Role Phone Mckayla Blas MD Primary Care Provider [phone] Allergies No known active allergies Medications MedicationSigDispense [...] INJECT 48 UNITS SUBCUTANEOUSLY TWICE DAILY02/06/2022ctive HYDROcodone-acetaminophen (Williams) 5-325 mg tablet TAKE 1 TABLET BY MOUTH THREE TIMES A DAY NEEDED FOR PAIN MUST LAST 30 DAYS 11/09/2023ctive DULoxetine (Cymbalta) [address] capsule Take 1 tablet by mouth in the morning.Active ergocalciferol (Vitamin D-2) 1.25 MG (22184 Units) capsule Take 1.25 mg by mouth.Active [...] Problems ProblemNoted DateDiagnosed DateCellulitis of left lower xrvlazhmf59/03/2025Fever 12/09/2024igarette nicotine dependence without osqhmexhxsxa25/21/2025Vitamin D deficiency, ofpkrbvqytb31/21/2025ntibiotic-induced yeast qdlgarajp39/19/2025 Idiopathic chronic venous hypertension of both lower extremities with ulcer 08/27/2024Long term current use of inhaled collrdi4308/27/2024Vitamin deficiency 08/27/2024ad odor of urine08/08/2024hronic diastolic heart flwgnlp6908/08/2024 Myelolipoma of adrenal gland07/14/2024ritical limb ischemia of right lower /12/2024Venous ulcer of right leg06/19/2024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 2 diabetes dqcpdtqo65/05/2024 Overview (08/08/2024): Eye exam 05/13/24 Hyperpigmentation of skin04/14/20240174Pdxsfyepj75Headache Left flank painMixed incontinence urrent dagzpe60 Overview (11/14/2023): Added secondary to documentation in Social History. Candidiasis of rnscki09 Overview (11/14/2023): Last Assessment & Plan: Skin care, Non-seasonal allergic hfhoscqe99Encounter for screening mammogram for malignant neoplasm of pzqrur75lass 3 severe obesity with serious comorbidity and body mass index (BMI) of 50.0 to 59.9 in adultdrenal mass 1 cm to 4 cm in uewhnrmt72/11/2024 11/14/20232290Lcuobeslwbp09ervical okqooe07 Chronic pain of both kneesecreased functional mobility GERD (gastroesophageal reflux disease) Vmnuphezsvjszg88InsomniaKidney stone AD (peripheral artery disease)neumonia adiculopathy, lumbar hyqedl68Unilateral primary osteoarthritis, right hipVenous insufficiency Overview (11/14/2023): Last Assessment & Plan: Open wounds refer to [facility] Wound Care Vaginal yeast putesxbmf27nxiety and hqdsbifwqx32/02/2024 11/14/2023ilateral lower extremity edema Overview (11/14/2023): Last Assessment & Plan: Continue w pamela, discussed skin care regimines as well Diabetic nfjtiiiidp84Hypertension Overview (11/14/2023): Last Assessment & Plan: No changes today in meds Obstructive sleep apnea Overview (11/14/2023): Last Assessment & Plan: DME needs to send her a new mask for her machine, I have emphasized the importance of getting in touch with them so she can do this Type 2 diabetes mellitus with complication, with long-term current use of nvpopoj40 Overview (11/14/2023): Last Assessment & Plan: Continue with [facility] for management RAGHU gnkdciig23Other chronic painMI 50.0- 59.9, adult05/21/Easy kapxnqjh45losed fracture of upper end of yhvzmrc15/27/bdominal wrzmxo28 Jdedep82ardiomegaly Overview (11/14/2023): borderline borderline Acute respiratory distress bugyaojp10Gout Resolved Problems ProblemNoted DateDiagnosed DateResolved DatePulmonary /11/2024 Overview (11/14/2023): Last Assessment & Plan: Needs to wear her PAP I am also going to have her see [facility] Cardiology as well Family History Medical HistoryRelationNameCommentsHeart attackPaternal GrandmotherRelationName StatusCommentsFatherDeceasedMotherDeceasedPaternal Grandmother Social History Tobacco UseTypesPacks/DayYears UsedDateSmoking Tobacco: Every DayCigarettes Smokeless Tobacco: Never Tobacco Cessation:Ready to Q uit: Not Asked; Counseling Given: Not Answered Alcohol UseStandard Drinks/WeekCommentsNot Currently0 (1 standard drink = 0.6 oz pure alcohol)[place] Safety & EnvironmentAnswerDate RecordedFear of Current or Ex-PartnerNot on file08/30/2023Emotionally AbusedNot on file08/30/2023hysically AbusedNot on file08/30/2023Sexually AbusedNot on file08/30/2023hysically or Sexually AbusedNot on file08/30/2023CommentsUnknownSex and Gender InformationValueDate RecordedSex Assigned at BirthNot on fileLegal SexFemale 01/04/2022 10:08 PM EDTGender IdentityNot on fileSexual OrientationNot on file Last Filed Vital Signs Vital SignReadingTime TakenCommentsBlood Xnsulsuq288/6407 11:41 AM EDT Etatx705701/06/2025 11:41 AM FAJXixayqajjxr24.7 ??C (98.1 ??F)12/12/2018 2:44 PM EDTRespiratory Rate--Oxygen Drautjeuqy91%01/06/2025 11:41 AM EDTInhaled Oxygen Concentration--Qrjttl262 kg (376 lb)01/06/2025 11:41 AM OUJOebulx971.2 cm (5' 7 )01/06/2025 11:41 AM EDTBody Mass Index58.8907 11:41 AM EDT Plan of Treatment Health MaintenanceDue DateLast DoneCommentsCT Qrmlxkwfcuca05/17/1971Colonoscopy 1970Colorectal Cancer Afbolaxgo91/17/1971Diabetes: Hemoglobin A1C 1970FIT-DNA1970FIT1970FOBT1970Medicare Annual Wellness (AWV)1970 7440Kpgjoqsmwtqsj24/17/1971Diabetes: Retinopathy Sgchscgqy95/17/1981 Depression Ubgjcvcku99/17/1983Diabetes: Urine Protein Lalzphdtk31/17/1990 Hepatitis B Vaccines (1 of 3 - 19+ 3-dose series)1989Pap Smear1991 Adult Enfhrir8408/25/1992Cervical Cancer Eqsnferiw12/17/2001HPV/Fcwemy9808/25/2000 Nabepdovf42/17/2011Pneumococcal Vaccine: Pediatrics (0 to 5 Years) and [...] Mckayla Blas MD [address] [place] [address] PCP - GeneralNurse Practitioner11/13/23
--- OUTSIDE RECORDS SUMMARY | 2025-05-11 11:47 | XMS_ITS | Encounter Summary ---
Author Organization [facility] Address [address] [place] [address] Care Team Providers Care Spray 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 Name Role Phone Ty Amin MD Primary Care Provider [phone] Mckayla Blas SUPERVISOR RECEIVING AND PROCESSING Unavailable [phone] Mckayla Blas NP Unavailable [phone] Encounter Details DateTypeDepartmentCare Team (Latest Contact Info)Vmfgnandbwx52/07/2024Clinisync Result Encounter [facility] Unsolicited Mckayla Blas NP [address] [place] [address] Social History Tobacco UseTypesPacks/DayYears UsedDateSmoking Tobacco: Every [...] relatives?Once a week08/26/2024How often do you attend sabianism or jewish services?More than 4 times per year08/26/2024Do you belong to any clubs or organizations such as sabianism groups, unions, fraternal or athletic groups, or school groups?No08/26/2024How often do you attend meetings of the clubs or organizations you belong to?Never08/26/2024re you , , , , never , or living with a partner?Owvnnfl7408/26/2024UDIT-C AnswerDate RecordedQ1: How often do you have [...] heating?Not hard at all08/26/2024PHQ-2AnswerDate RecordedPatient Health Questionnaire-2 Anmet243[facility] [place] [facility] - Occupational Stress QuestionnaireAnswerDate RecordedDo you feel stress - tense, restless, nervous, or anxious, or unable to sleep at night because yourmind is troubled all the time - these days?Only a krjcpo2608/26/2024 Exercise Vital SignAnswerDate RecordedOn average, how many [...] steady place to sleep or slept in nett lakeelter (including now)?No07/10/2023Housing Stability Vital SignAnswerDate RecordedIn the last 12 months, was there a time when you were not able to pay the mortgage or rent on time?No08/26/2024Number of Times Moved in the Last Year Not on file08/26/2024t any time in the past 12 months, were you homeless or living in a half-way (including now)?No08/26/2024CommentsUnknownSex and Gender InformationValueDate RecordedSex Assigned at BirthNot on fileLegal Sex Ozgihp9909/20/2022 6:50 PM EDTGender IdentityNot on fileSexual OrientationNot on filedocumented as of this encounter Functional Status * AUDIT-C ScoreAnswerDate of GcayaqdouvJctfsv350/18/2025 6:13 PM Riley, Generic * Q1: How [...] or more drinks on one occasion?AnswerDate of LvdwuzjjrfOangviHmsdm52/18/2025 6:13 PM Wiliam Lin * Over the past 2 weeks, how often have you been bothered by any of the following problems?QuestionAnswerDate of AssessmentAuthorLittle interest or pleasure in doing thingsNot at all01/26/2025 6:14 PM Marilyn Gibson MA Feeling down, depressed, or hopelessNot at all01/26/2025 6:14 PM Marilyn Gibson MAPatient Health Questionnaire-2 Hlvbv953 6:14 PM EDT Marilyn Forman MA * [...] Plan of Treatment DateTypeDepartmentCare Team (Latest Contact Info)Lxizbfadwji79/20/2025 10:30 AM ESTOffice Visit [facility] [address] [place] [address] Rain Souza MD [address] [place] [address] documented as of this encounter Procedures Procedure NamePriorityDate/TimeAssociated DiagnosisCommentsMM TOMOSYNTHESIS SCREENING BI12/14/2023 11:21 AM EDT documented in this encounter Results * MM TOMOSYNTHESIS SCREENING BI (12/14/2023 11:21 AM EDT)Anatomical Region LateralityModalityOtherSpecimen (Source)Anatomical Location / Laterality Collection Method / VolumeCollection TimeReceived Time12/14/2023 11:21 AM EDT Narrative 12/14/2023 11:22 AM EDT [facility] ?[address] ? [place] [address] ? Mammography Report ? Signed ? Patient: MACIAS,MITZI L ?MR#: [id number] ?? : 1970 ?Acct:[id number] ?? Age/Sex: 53 / F ?ADM Date: 12/13/23 ?? Loc: MAMMO ? Attending Dr: Mckayla J Aichholz SUPERVISOR RECEIVING AND PROCESSING ? Ordering Physician: Aichholz,Mckayla SUPERVISOR RECEIVING AND PROCESSING ?Results: ? Date of Service: 12/13/23 ?Follow Up: ? Procedure(s): MM tomosynthesis screening BI ?? Accession Number(s): [id number] ? cc: Mckayla Blas SUPERVISOR RECEIVING AND PROCESSING ? Patient Name: ? MITZI MACIAS ? MR#: [id number] ? : 1970 ? Exam Date: 12/13/2023 [...] at age ??75. ? LOCATION: ? [facility] ? BREAST COMPOSITION: ? The breasts are [...] ?12/14/232 ? DD/ 1121 ? TD/TT: ? Metal Bending 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: Procedure Note Radiology, Radiologist, - 12/14/2023 [place] [address] Mammography Report Signed Patient: MITZI MACIAS LMR#: [id number] : 1970Acct:[id number] Age/Sex: 53 / FADM Date: 12/13/23 Loc: MAMMO Attending Dr: Mckayla Blas NP Ordering Physician: Mckayla Blas NPResults: Date of Service: 12/13/23Follow Up: Procedure(s): MM tomosynthesis screening BI Accession Number(s): [id number] cc: Mckayla Blas NP Patient Name: MITZI MACIAS MR#: [id number] : 1970 Exam Date: 12/13/2023 Ordering Doctor: SAYDA Blas BREAKFAST AND ROOM ATTENDANT RADIOLOGY REPORT PROCEDURE: MM TOMOSYNTHESIS SCREENING BI [...] unknown cancer at age 75. LOCATION: [facility] BREAST COMPOSITION: The breasts are almost entirely [...] M.D. Signed By:12/14/23 1122 DD/ 1121 TD/TT: Metal Bending 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: Authorizing ProviderResult TypeResult StatusLisa Wan NPCLINISYNC IMAGING Final Result documented in this encounter Visit Diagnoses Not on filedocumented in this encounter Care Teams Team MemberRelationshipSpecialtyStart DateEnd Date Ty Amin MD PCP - GeneralFamily Medicine09/20/23 Mckayla Blas NP [address] [place] [address] PCP - [facility]/ Mckayla Blas NP Nurse PractitionerFamily Medicine09/20/23documented as of this encounter
--- OUTSIDE RECORDS SUMMARY | 2025-05-11 12:09 | XMS_ITS | CCD ---
Author Organization [facility] Care Team Providers Care Sample Room Supervisor Name Role Phone Rufino Benavidez Primary Care Provider [phone] RUFINO BENAVIDEZ Primary Care Unavailable SHENDGE, VITHAL Admitting Unavailable SHENDGE, VITHAL Attending Unavailable AICHHOLZ, MCKAYLA Primary Care Unavailable AICHHOLZ, MCKAYLA Referring Unavailable AICHHOLZ, MCKAYLA J Primary Care Physician [phone] Tico, Stephanie Unavailable OLE RAMIREZ Attending Unavailable OLE RAMIREZ Consulting Unavailable AICHHOLZ, PROOF PRESS OPERATOR MCKAYLA Primary Care Unavailable OLE RAMIREZ Admitting Unavailable ANTONY SHRESTHA Consulting Unavailable ALONDRA ., JACQUELINE Admitting Unavailable ALONDRA ., JACQUELINE Attending Unavailable AICHHOLZ, PROOF PRESS OPERATOR MCKAYLA Primary Care Unavailable AFSANEH Loera, DR BOLANOS Consulting Unavailable MARYANNE POWER Consulting Unavailable GLENN KERR Consulting Unavailable YOMAIRA KERR Consulting Unavailable HATTIE GOFF Consulting Unavailable ALONDRA ., JACQUELINE Consulting Unavailable TICO, STEPHANIE Attending Unavailable TICO, STEPHANIE Consulting Unavailable AICHHOLZ, PROOF PRESS OPERATOR MCKAYLA Primary Care Unavailable TICO, STEPHANIE Admitting Unavailable REGLA ., DR DUMONT Admitting Unavailable AICHHOLZ, PROOF PRESS OPERATOR MCKAYLA Primary Care Unavailable REGLA ., DR DUMONT Attending Unavailable ARAUZ ., DR DUMONT Consulting Unavailable COLLIN HUERTAS Consulting Unavailable CECILIA KAUFMAN Admitting Unavailable CECILIA KAUFMAN Attending Unavailable AICHHOLZ, PROOF PRESS OPERATOR MCKAYLA Primary Care Unavailable COMFORT PRETTY Attending Unavailable COMFORT PRETTY Admitting Unavailable AICHHOLZ, PROOF PRESS OPERATOR MCKAYLA Primary Care Unavailable AICHHOLZ, PROOF PRESS OPERATOR MCKAYLA Admitting Unavailable AICHHOLZ, PROOF PRESS OPERATOR MCKAYLA Primary Care Unavailable AICHHOLZ, PROOF PRESS OPERATOR MCKAYLA Attending Unavailable AICHHOLZ, PROOF PRESS OPERATOR MCKAYLA Consulting Unavailable LAKSHMIPATHY ., NARENDRANATH Attending Anette vailable LAKSHMIPATHY ., NARENDRANATH Consulting Anette vailable LAKSHMIPATHY ., NARENDRANATH Admitting Anette vailable AICHHOLZ, PROOF PRESS OPERATOR MCKAYLA Primary Care Unavailable VALENZUELA ., GIL Consulting Unavailable MORTENSEN ., DR CHAPARRO Aguillon Attending Unavailable MORTENSEN ., DR CHAPARRO Aguillon Admitting Unavailable AICHHOLZ, PROOF PRESS OPERATOR MCKAYLA Primary Care Unavailable VALENZUELA ., GIL Consulting Unavailable MORTENSEN ., DR CHAPARRO Aguillon Admitting Unavailable AICHHOLZ, PROOF PRESS OPERATOR MCKAYLA Primary Care Unavailable MORTENSEN ., DR CHAPARRO Aguillon Attending Unavailable HALKER ., SUBHASH Consulting Unavailable LAKSHMIPATHY ., NARENDRANATH Admitting Anette vailable LAKSHMIPATHY ., NARENDRANATH Attending Anette vailable AICHHOLZ, PROOF PRESS OPERATOR MCKAYLA Primary Care Unavailable MORTENSEN ., DR CHAPARRO Aguillon Attending Unavailable MORTENSEN ., DR CHAPARRO Aguillon Admitting Unavailable VALENZUELA ., GIL Consulting Unavailable AICHHOLZ, PROOF PRESS OPERATOR MCKAYLA Primary Care Unavailable VALENZUELA ., GIL Consulting Unavailable MORTENSEN ., DR CHAPARRO Aguillon Attending Unavailable MORTENSEN ., DR CHAPARRO Aguillon Admitting Unavailable AICHHOLZ, PROOF PRESS OPERATOR MCKAYLA Primary Care Unavailable HATTIE BRODERICK Attending Unavailable HATTIE BRODERICK Admitting Unavailable AICHHOLZ, PROOF PRESS OPERATOR MCKAYLA Primary Care Unavailable AICHHOLZ, PROOF PRESS OPERATOR MCKAYLA Admitting Unavailable AICHHOLZ, PROOF PRESS OPERATOR MCKAYLA Consulting Unavailable AICHHOLZ, PROOF PRESS OPERATOR MCKAYLA Primary Care Unavailable AICHHOLZ, PROOF PRESS OPERATOR MCKAYLA Attending Unavailable AICHHOLZ, PROOF PRESS OPERATOR MCKAYLA Primary Care Unavailable MISC, DR LESLIE Admitting Unavailable MISC, DR LESLIE Attending Unavailable MISC, DR LESLIE Consulting Unavailable DIAB ., MARIANO Admitting Unavailable DIAB ., MARIANO Attending Unavailable DIAB ., MARIANO Consulting Unavailable AICHHOLZ, PROOF PRESS OPERATOR MCKAYLA Primary Care Unavailable RASTEGAR, RICCO Consulting Unavailable AICHHOLZ, PROOF PRESS OPERATOR MCKAYLA Admitting Unavailable AICHHOLZ, PROOF PRESS OPERATOR MCKAYLA Primary Care Unavailable AICHHOLZ, PROOF PRESS OPERATOR MCKAYLA Attending Unavailable AICHHOLZ, PROOF PRESS OPERATOR MCKAYLA Consulting Unavailable DR PATRICIA VELOZ Consulting Unavailable TAMLYN ., CECILIA Attending Unavailable TAMLYN ., CECILIA Admitting Unavailable DR PATRICIA VELOZ Consulting Unavailable AICHHOLZ, PROOF PRESS OPERATOR MCKAYLA Primary Care Unavailable TAMLYN ., CECILIA Consulting Unavailable MORTENSEN ., DR CHAPARRO Aguillon Attending Unavailable FESTUS ., DR CHAPARRO Aguillon Consulting Unavailable FESTUS ., DR CHAPARRO Aguillon Admitting Unavailable AICHHOLZ, PROOF PRESS OPERATOR MCKAYLA Primary Care Unavailable HATTIE BRODERICK Attending Unavailable HATTIE BRODERICK Consulting Unavailable HATTIE BRODERICK Admitting Unavailable AICHHOLZ, PROOF PRESS OPERATOR MCKAYLA Primary Care Unavailable HATTIE BAUTISTA Consulting Unavailable AICHHOLZ, PROOF PRESS OPERATOR MCKAYLA Admitting Unavailable AICHHOLZ, PROOF PRESS OPERATOR MCKAYLA Attending Unavailable AICHHOLZ, PROOF PRESS OPERATOR MCKAYLA Consulting Unavailable AICHHOLZ, PROOF PRESS OPERATOR MCKAYLA Primary Care Unavailable Ty Amin MD Primary Care Provider Ty Amin MD Primary Care Provider Aichholz BRAZER PRODUCTION LINE, Mckayla Unavailable Aichholz BRAZER PRODUCTION LINE, Mckayla Unavailable AICHHOLZ, MCKAYLA Attending Unavailable LIBBY, AHMAD F Attending Unavailable AICHHOLZ, MCKAYLA Attending Unavailable AICHHOLZ, MCKAYLA Attending Unavailable AICHHOLZ, MCKAYLA Attending Unavailable LIBBY, AHMAD F Attending Unavailable AICHHOLZ, MCKAYLA Attending Unavailable LIBBY, AHMAD F Attending Unavailable LIBBY, AHMAD F Referring Unavailable AICHHOLZ, MCKAYLA Attending Unavailable Aichholz BRAZER PRODUCTION LINE, Mckayla Unavailable Aichholz BRAZER PRODUCTION LINE-C, Mckayla J Primary Care Provider Price Arora DO Attending Provider [phone] Flynn Urias DPM Attending Provider Aichholz BRAZER PRODUCTION LINE-C, Mckayla J Attending Provider AMI ORO Attending Unavailable DAKOTAH BRIDGES Attending Unavailable Elbert ARAUZ Attending Unavailable GAVIOTA ADAMES Attending Unavailable Ty Amin MD Primary Care Provider Aichholz BRAZER PRODUCTION LINE, Mckayla Unavailable Aichholz BRAZER PRODUCTION LINE, Mckayla Unavailable Ty Amin MD Primary Care Provider Valdez PHIPPS, Corinne Ghohs Attending Unavail able Aichholz MANAGER VOICE-PROOF PRESS OPERATOR, Mckayla Lennon Primary Care Unava ilable Bob MANAGER VOICE-PROOF PRESS OPERATOR, Omero Lovell Consulting Unav ailable Bob MANAGER VOICE-PROOF PRESS OPERATOR, Omero Lovell Attending Unav ailable Adonay DPM, Flynn Arzate Attending Unavailab le Aichholz MANAGER VOICE-PROOF PRESS OPERATOR, Mckayla Lennon Primary Care Unava ilable Bob MANAGER VOICE-PROOF PRESS OPERATOR, Omero Lovell Attending Unav ailable Adonay DPM, Flynn Arzate Attending Unavailab le Adonay DPM, Flynn Arzate Attending Unavailab le Aichholz MANAGER VOICE-PROOF PRESS OPERATOR, Mckayla Lennon Primary Care Unava ilable Adonay DPM, Flynn Arzate Referring Unavailab le Bob MANAGER VOICE-PROOF PRESS OPERATOR, Omero Lovell Attending Unav ailable Allergies Allergy ClassificationReported Allergen(s)Allergy TypeDate of OnsetReaction(s) Facility (1 source)No Known Medication Allergies; Translations: [No Known Medication Allergies]Propensity to adverse reactions (disorder)[facility] Medications Current Medications MedicationDrug Class(es)DatesSig (Normalized)Sig (Original)0.5 ML tirzepatide 30 MG/ML Auto-Injector [Mounjaro] (1 source)Start: 21-24-0357xbytpb 15 mg by subcutaneous injection every week Mounjaro 15 mg/0.5 mL subcutaneous solution INJECT 15MG SUBCUTANEOUSLY ONCE A WEEK Start Date: 06/11/24 Status: Orderedacetaminophen 325 mg / HYDROcodone bitartrate 5 mg oral tablet (20 sources)Opioid AgonistStart: 60-98-8204ayqriazqkuxlg-hydrocodone 325 mg-5 mg oral tablet Refill(s) 0 Start Date: 02/06/22 Status: OrderedStart: 12-13-2017 End: 27-56-4759zaiy 1 tablet by mouth every four hoursHydrocodone-Acetaminophen ([place]) 5-325 mg tablet Discontinued 1 TAB PO Q4H 15 0 December 13, 2017 April 05, 2025 12:52pm Fracture of humerus painStart: 38-39-4110tbcw 1 tablet by mouth every four to six hours as needed for painHYDROcodone-acetaminophen ([place]) 5-325 MG tablet 1 tablet 3 (three) times a day as needed for severe pain. Activetake 1 tablet by mouth twice daily as neededNorco 5-325 MG 1 tablet as needed Orally TWICE A DAY Activealbuterol 0.83 mg/ml inhalation solution (20 sources)beta2-Adrenergic AgonistStart: 99-86-7877lacp 2.5 mg by inhalation every four to six hours as neededStart: 97-28-4259clmcsxqsf 0.083% Inh Tracey 3 mL Refill(s) 0 [...] oral tablet (20 sources)Tricyclic AntidepressantStart: 02-06-2022 End: 13-13-9358zybd 1 tablet by mouth once daily at bedtimeaspirin 81 mg chewable tablet (20 sources)Platelet Aggregation Inhibitor, Nonsteroidal Anti-inflammatory Drug Start: 11-01-2023 End: 31-19-6888booa 1 tablet by mouth once dailyaspirin 81 MG chewable tablet Chew 81 mg in the morning. 0 Activebaclofen 10 mg oral tablet (20 sources)gamma-Aminobutyric Acid-ergic AgonistStart: 96-13-6572hebn 1 tablet by mouth every eight hours as neededStart: 66-19-6556rcas 1 tablet by mouth in the morning, then take 1 tablet by mouth in the evening, then take 1 tablet by mouth at bedtimebaclofen (Lioresal) 10 MG tablet Take 10 mg by mouth in the morning and 10 mg in the evening and 10mg before bedtime. 06/24/2024 Aeomhh34 actuat budesonide 0.16 mg/actuat / formoterol fumarate [...] tablet (20 sources)Histamine-1 Receptor AntagonistStart: 11-01-2023 End: 74-93-0261sywa 1 tablet by mouth once daily as neededtake 1 tablet by mouth in the morningcetirizine (ZyrTEC) 10 MG tablet Take 10 mg by mouth in the morning. 0 Activedapagliflozin 10 mg oral tablet (20 sources)Sodium-Glucose Cotransporter 2 InhibitorStart: 01-17-2024 End: 72-12-2401cvtv 1 tablet by mouth once dailyStart: 08-14-2023 End: 61-41-0024grwz 1 tablet by mouth in the morningdapagliflozin (Farxiga) 10 MG Indications: Type 2 diabetes mellitus with unspecified complications ( CMS/HCC) Take 1 tablet (10 mg) by mouth in the morning. 90 tablet 1 08/14/2023 11/12/2023 Activediclofenac sodium 75 mg delayed release oral tablet (20 sources)Nonsteroidal Anti-inflammatory DrugStart: 52-00-3589noea 1 tablet by mouth twice daily0.5 ML dulaglutide 9 MG/ML Auto-Injector [Trulicity] (4 sources)GLP-1 Receptor AgonistStart: 70-36-8841Fhajkujkk Pen 4.5 mg/0.5 mL subcutaneous solution Refills(s) [...] sources)Serotonin and Norepinephrine Reuptake InhibitorStart: 11-01-2023 End: 98-85-3751ryfo 1 capsule by mouth twice dailyStart: 07-23-2023 End: 56-15-7239fscr 1 capsule by mouth in the morningDULoxetine (Cymbalta) [address] capsule Indications: Anxiety and depression (CMS/HCC) Take 1 capsule(60 mg) by mouth in the morning and 1 capsule (60 mg) before bedtime. Do not crush or chew.. 60 capsule 3 07/23/2023 08/22/2023 ActiveStart: 65-31-2958XKXerozvlc 30 mg Cap-EC Refills(s) 0 Start Date: 02/06/22 Status: OrderedDULoxetine 30 mg Cap-EC (2 sources)Start: 71-29-1392BNPslwyrnv 30 mg Cap-EC Refills(s) 0 Start Date: 02/06/22 Status: Orderedergocalciferol 1.25 mg oral capsule (20 sources)Provitamin D2 CompoundStart: 13-22-8848Evdxu: 01-16-2025 End: 70-18-6856cnax 1 capsule by mouth every weekergocalciferol (Vitamin D2) 1.25 MG (35372 UT) capsule Indications: Vitamin D deficiency, unspecified Take 1 capsule (1.25 mg) by mouth 1 (one) time per week 12 capsule 1 01/16/2025 04/10/2025 ActiveStart: 10-27-2024 End: 88-35-5503vzgp 1 capsule by mouth two times weeklyergocalciferol (Vitamin D2) 1.25 MG (33740 UT) capsule Indications: Vitamin D deficiency, unspecified Take 1 capsule (1.25 mg) by mouth 2 (two) times a week 24 capsule 1 10/27/2024 01/19/2025 ActiveStart: 04-06-2024 End: 63-30-8246ramw 1 capsule by mouth every weekergocalciferol (Vitamin D2) 1.25 MG (68668 UT) capsule Indications: Vitamin D deficiency, unspecified TAKE 1 CAPSULE BY MOUTH ONE TIME PER WEEK 12 capsule 1 04/06/2024 10/27/2024 Discontinued (Reorder)fluconazole 150 mg oral tablet (20 sources)Azole AntifungalStart: 08-27-2024 End: 92-09-1832tcteeiokfhi (Diflucan) 150 MG tablet Indications: Antibiotic- induced yeast infection One time dose,repeat in 3 days . Do not take cholesterol pill while taking this medication. Once finished then resume 2 tablet 1 01/26/2025 ActiveStart: 08-17-2023 End: 23-91-4418vjhnrneswen (Diflucan) 150 MG tablet Indications: Vaginal yeast infection Take 1 tablet (150 mg) bymouth in the morning for 2 days. One time dose, may repeat in 3 days. 2 tablet 1 08/17/2023 08/19/2023 Active End: 12-94-9847nyrjktneyuj (Diflucan) 150 MG tablet Take 200 mg by mouth in the morning. 0 08/17/2023 Discontinued(Reorder)furosemide 20 mg oral tablet (20 sources)Loop DiureticStart: 09-22-2024 End: 85-21-8398unwr 1 tablet by mouth once dailyStart: 04-06-2024 End: 91-58-5369dfcn 1 tablet by mouth once dailyfurosemide (Lasix) 40 MG tablet Indications: Bilateral lower extremity edema Take 1 tablet (40 mg) by mouth Daily 90 tablet 1 04/06/2024 ActiveStart: 12-13-2017 End: 68-47-3239mebz 1 tablet by mouth once daily as [...] oral tablet (20 sources)Arteriolar VasodilatorStart: 09-13-2023 End: 57-54-1816siqj 1 tablet by mouth twice dailysodium hypochlorite 2.5 mg/ml topical solution (14 sources)Start: 42-65-3722UxQhbv 0.25 % external solution APPLY TO GAUZE [...] with supper. 0 ActiveNovoLog (5 sources)Insulin AnalogStart: 31-77-1967QtymKse SubCutaneous, TIDAC, Refills(s) 0 Start Date: 02/06/22 Status: OrderedNovoLOG 100 UNIT/ML as directed Injection SLIDING SCALE BEFORE EACH MEAL Active3 ml insulin glargine 100 unt/ml pen injector (20 sources)Insulin AnalogStart: 76-95-0061Qmogu: 80-27-8341prgvnjn glargine (Lantus SoloStar) 100 UNIT/ML pen Indications: Type 2 diabetes mellitus with hyperglycemia, with long-term current use of insulin (HCC) INJECT 58 UNITS SUBCUTANEOUSLY TWICE A DAY 105mL 2 02/16/2025 ActiveStart: 01-29-2025 End: 10-49-2396uaetch 58 [IU] by subcutaneous injection in the morninginsulin glargine (Lantus) 100 UNIT/ML injection Indications: Type 2 diabetes mellitus with hyperglycemia, with long-term current use of insulin (HCC) Inject 58 Units under the skin in the morning and58 Units before bedtime. 104.4 mL 1 01/29/2025 07/28/2025 ActiveStart: 95-09-2031Jovmve SoloStar 100 UNIT/ML pen 08/26/2024 ActiveStart: 10-30-2023 End: 53-56-0396Wxpolw SoloStar 100 UNIT/ML pen 10/30/2023 04/14/2024 Discontinued (Therapy completed)Start: 33-22-2257Gjmztz Solostar Pen 100 units/mL subcutaneous solution Refills(s) 0 Start Date: 02/06/22 Status: Ordered Start: 12-13-2017 End: 10-23-3275luunrv 50 [IU] by subcutaneous injection twice dailyInsulin Glargine (Lantus U-100 Insulin) 100 unit/mL Solution Discontinued 50 UNIT SUBCUT Twice daily December 13, 2017 12:00am April 05, 2025 12:53pmLantus SoloStar 100 UNIT/ML as directed Subcutaneous 58 UNITS ONCE A DAY Active3 ml insulin lispro 100 unt/ml pen injector (20 sources)Insulin AnalogStart: 10-06-2023 End: 32-36-5527EyzoUKU KWIKPEN 100 UNIT/ML injection Inject under the skin 10/06/2023 04/14/2024 Discontinued (Therapy completed)Start: 72-40-8679lgprme 1 [IU] by subcutaneous injection before mealtimeInsulin [...] lactate 120 mg/ml topical lotion (20 sources)Start: 65-19-3415Uapkz: 27-22-6422oqqfizmb lactate (Lac-Hydrin) 12 % lotion 07/22/2024 ActiveStart: 49-78-8211lpgnbyma lactate (Lac-Hydrin) 12 % lotion APPLY TO BILATERAL FEET EVERY DAY 07/22/2024 Activelisinopril 20 mg oral tablet (20 sources)Angiotensin Converting Enzyme InhibitorStart: 02-06-2022 End: 10-32-6622urpu 1 tablet by mouth once dailymeloxicam (5 sources)Nonsteroidal Anti-inflammatory DrugStart: 04-56-9616vrlulyjic Daily, Refills(s) 0 Start Date: 02/06/22 Status: Orderedtake 1 tablet by mouth every twenty-four hoursMeloxicam 7.5 MG 1 tablet Orally Once a day ActivemetFORMIN hydrochloride 1000 mg oral tablet (1 source)Biguanidetake 1 tablet by mouth twice daily at mealtimemetFORMIN (GLUCOPHAGE) 1000 MG tablet Take 1,000 mg by mouth 2 times daily (with meals). 0 ActiveMounjaro 10 MG/0.5ML solution pen-injector (4 sources)Start: 10-22-2023 End: 10-90-7059qtujvg 10 mg by subcutaneous injection every weekMounjaro 10 MG/0.5ML solution pen-injector INJECT 10MG SUBCUTANEOUSLY ONCE A WEEK 10/22/2023 04/14/2024 Discontinued (Therapy completed)Start: 26-66-9511vlsvqs 10 mg by subcutaneous injection every weekMounjaro 10 MG/0.5ML solution pen-injector INJECT 10MG SUBCUTANEOUSLY ONCE A WEEK 10/22/2023 ActiveMounjaro 15 MG/0.5ML solution auto-injector (8 sources)Start: 99-27-6717Qgsjuswf 15 MG/0.5ML solution auto-injector Inject 15 mg as directed every 7 (seven) days 02/18/2024 Activenaloxone hydrochloride 40 mg/ml nasal spray (20 sources)Opioid AntagonistStart: 81-17-5319Rnwrt: 65-02-1979zbygikes (Narcan) 4 mg/0.1 mL nasal spray Administer 4 mg into affected nostril(s) if needed 07/04/2024 Uojxzu83 hr nicotine 0.875 mg/hr transdermal system (20 sources)Cholinergic Nicotinic AgonistStart: 07-14-2024 End: 34-77-5768keqyqqup (Nicoderm, Step 1) 21 MG/24HR patch Indications: [...] capsule (20 sources)Proton Pump InhibitorStart: 12-25-2023 End: 22-82-7278qufh 1 capsule by mouth once dailytake 1 capsule by mouth before mealtimeomeprazole (PriLOSEC) [address] capsule Take 20 mg by mouth in the morning. Take before meals. Do not crush or chew. . 0 ActiveOxygen (20 sources)oxygen (O2) gas Inhale 2 L/min continuously via nasal canula Active potassium chloride 10 meq extended release oral tablet (20 sources)Start: 80-39-2933Nlztk: 02-06-2022 End: 70-82-8699ovls 1 capsule by mouth once daily in the morningpotassium chloride ER (Micro-K) 10 MEQ ER capsule Indications: Bilateral lower extremity edema Take1 capsule (10 mEq) by mouth Daily Take 1 capsule (10 mEq) by mouth in the morning. 90 capsule 1 01/26/2025 04/26/2025 ActiveStart: 12-13-2017 End: 83-34-9539Wmdbmjjwi Chloride (Klor-Con 10) 10 mEq Tablet Extended Release Discontinued 10 MEQ PO Twice daily December 13, 2017 12:00am April 05, 2025 12:56pmtake 1 tablet by mouth every twenty-four hoursPotassium Chloride ER 10 MEQ 1 tablet with food Orally Once a day ActivepredniSONE 10 mg oral tablet (11 sources)Start: 94-22-3419wxdgocPQSQ (Deltasone) 10 MG tablet 4 TABS X3 DAYS, 3TABS X3 DAYS, 2 TABS X3 DAYS, 1 TAB X3 DAYS, 1/2 TAB X4 DAYS 12/05/2024 Active pregabalin 150 mg oral capsule (20 sources)Start: 04-81-8080evtw 1 capsule by mouth once dailyStart: 08-13-2024 take 1 capsule by mouth once dailypregabalin (Lyrica) 150 MG capsule Take 150 mg by mouth Daily 08/13/2024 ActiveStart: 21-68-4657Jiksde Oral, Refills(s) 0 Start Date: 02/06/22 Status: OrderedStart: 12-13-2017 End: 19-16-1935llgu 1 capsule by mouth in the morningpregabalin (Lyrica) 300 MG capsule Indications: Diabetic polyneuropathy associated with type 2 diabetes mellitus (HCC) Take 1 capsule (300 mg) by mouth in the morning and 1 capsule (300 mg) before bedtime. 60 capsule 5 04/14/2024 Activeroflumilast 0.5 mg oral tablet (20 sources)Phosphodiesterase 4 InhibitorStart: 01-04-2024 End: 43-20-4241krek 1 tablet by mouth once dailysimvastatin 10 mg oral tablet (20 sources)HMG-CoA Reductase InhibitorStart: 12-19-2024 End: 21-07-7805jcbx 1 tablet by mouth once daily at bedtimeStart: 04-06-2024 End: 36-97-3840xifd 1 tablet by mouth at bedtimesimvastatin (Zocor) 10 MG tablet Indications: Hyperlipidemia, unspecified (CMS/HCC) Take 1 tablet (10 mg) by mouth at bedtime 90 tablet 1 08/27/2024 ActiveStart: 06-15-2023 End: 11-42-3400ydbt 1 tablet by mouth in the morningsimvastatin (Zocor) 10 MG tablet Indications: Hyperlipidemia, unspecified (CMS/HCC) Take 1 tablet (10 mg) by mouth in the morning. 90 tablet 1 06/15/2023 09/13/2023 ActiveStart: 12-13-2017 End: 81-65-5859rxbu 1 tablet by mouth once daily in the eveningSimvastatin 20 mg Tablet Discontinued 20 MG PO Every evening December 13, 2017 12:00am March 1:00pmsulfamethoxazole 800 mg / trimethoprim 160 mg oral tablet (15 sources)Dihydrofolate Reductase Inhibitor Antibacterial, Sulfonamide AntimicrobialStart: 90-61-7247lxnd 1 tablet by mouth twice daily sulfamethoxazole-trimethoprim (Bactrim DS) 800-160 MG per tablet TAKE 1 TABLET BY MOUTH TWICE A DAYFOR 14 DAYS 01/14/2025 ActiveStart: 08-27-2024 End: 54-67-8421qfrmukecbebodxfe-trimethoprim (Bactrim DS) 800-160 MG per tablet 08/27/2024 10/27/2024 Discontinued(Therapy completed)Symbicort 160/4.5 inhalation aerosol with adapter (3 sources)Start: 00-59-8334Xbjammeqb 160/4.5 inhalation aerosol with adapter Refill(s) 0 Start Date: 02/06/22 Status: Yefdyet95 actuat tiotropium 0.0025 mg/actuat inhalation spray (7 sources)AnticholinergicStart: 33-84-8935Gjufuma Respimat 60 ACT 2.5 mcg/inh inhalation aerosol Refills(s) 0 Start Date: 02/06/22 Status: Orderedtake 2 puff(s) by inhalation in the morningtiotropium (Spiriva Respimat) 2.5 MCG/ACT inhaler Inhale 2 puffs in the morning. 0 Activetake 2 puff(s) by inhalation twice daily Spiriva Respimat 2.5 MCG/ACT 2 puffs Inhalation TWICE A DAY ActiveTirzepatide (2 sources)Start: 09-37-2390Kmwstgcsbom (Mounjaro) 15 MG/0.5ML solution auto-injector (20 sources)Start: 46-44-3952cnxatu 15 mg by subcutaneous injection every week Tirzepatide (Mounjaro) 15 MG/0.5ML solution auto-injector Indications: Type 2 diabetes mellitus with other circulatory complications (HCC) Inject 15 mg under the skin 1 (one) time per week 6 mL 1 02/27/2025 ActiveStart: 93-31-4969ilieka 15 mg by subcutaneous injection every weekTirzepatide (Mounjaro) 15 MG/0.5ML solution auto-injector Indications: Type 2 diabetes mellitus with other circulatory complications (HCC) INJECT 15MG SUBCUTANEOUSLY ONCE A WEEK 6 mL 1 07/07/2024 ActiveStart: 27-53-2676okbghd 15 mg by subcutaneous injection every weekTirzepatide (Mounjaro) 15 MG/0.5ML solution auto-injector Indications: Type 2 diabetes mellitus with other circulatory complications INJECT 15MG SUBCUTANEOUSLY ONCE A WEEK 6 mL 1 07/07/2024 ActiveStart: 52-25-2740agtlrr 15 mg by subcutaneous injection every weekTirzepatide [...] oral tablet (20 sources)Partial Cholinergic Nicotinic AgonistStart: 04-08-7548zhdp 1 tablet by mouth twice dailyStart: 12-19-2024 End: 38-60-6093lrmu 1 tablet by mouth in the morningvarenicline (Chantix) 1 MG tablet Indications: Tobacco user , Encounter for smoking cessation counseling TAKE 1 TABLET BY MOUTH IN THE MORNING AND 1 TABLET BEFORE BEDTIME. TAKE WITH FULL GLASS OF WATER. 60 tablet 1 03/09/2025 ActiveStart: 08-27-2024 End: 16-52-7720gdft 1 tablet by mouth in the morningvarenicline (Chantix) 1 MG tablet Indications: Tobacco user , Encounter for smoking cessation counseling Take 1 tablet (1 mg) by mouth in the morning and 1 tablet (1 mg) before bedtime. Take with full glass of water.. 60 tablet 1 08/27/2024 ActiveStart: 12-05-2023 End: 23-62-5143Mixitjltakc Tartrate, Starter, 0.5 MG X 11 & 1 MG X 42 tablet therapy pack TAKED DIRECTED BYCOX BRANSON TWICE DAILY 12/05/2023 07/14/2024 Discontinued (Therapy completed)Start: 47-73-0567Umpuncygttn Tartrate, Starter, 0.5 MG X 11 & 1 MG X 42 tablet therapy pack TAKED DIRECTED BYCOX BRANSON TWICE DAILY 12/05/2023 Active Completed/Discontinued Medications MedicationDrug Class(es)DatesSig (Normalized)Sig (Original)amoxicillin 875 mg / clavulanate 125 mg oral tablet (6 sources)Penicillin-class AntibacterialStart: 12-05-2024 End: 87-14-1924fbyf 1 tablet by mouth every twelve hoursamoxicillin-clavulanate (Augmentin) 875-125 MG tablet Take 1 tablet by mouth every 12 (twelve) hours 12/05/2024 01/26/2025 Discontinued (Therapy completed)cephalexin 500 mg oral capsule (9 sources)Cephalosporin AntibacterialStart: 2024 End: 70-59-8017zzhitsdmwh (Keflex) 500 MG capsule 2024 10/27/2024 Discontinued (Therapy completed)Glucose Blood (ACCU-CHEK JAQUI PLUS ) (14 sources) End: 05-25-9891Vsrxtzj Blood (ACCU-CHEK JAQUI PLUS ) 4 (four) times a day. 07/14/2024 Discontinued (Therapy completed)Glucose Blood (ACCU-CHEK JAQUI PLUS ) 4 (four) times a day. ActiveGlucose Blood (ACCU-CHEK JAQUI PLUS ) 4 (four) times a day. 0 Active3 ml liraglutide 6 mg/ml pen injector (6 sources)GLP-1 Receptor Agonist End: 07-66-8732rjekonlqocu (Victoza) 18 MG/3ML injection Inject under the skin Daily 07/14/2024 Discontinued (Therapy completed)naproxen 500 mg oral tablet (2 sources)Nonsteroidal Anti-inflammatory DrugStart: 12-13-2017 End: 13-86-3438zeha 1 tablet by mouth twice daily at mealtimeNaproxen 500 mg tablet Discontinued 500 MG PO Twice daily 20 0 December 13, 2017 12:00am April 05, 2025 12:53pm administer with food or milknortriptyline 50 mg oral capsule (18 sources)Tricyclic AntidepressantStart: 12-13-2017 End: 47-98-5029vdus 1 capsule by mouth once daily at bedtimeNortriptyline 50 mg Capsule Discontinued 50 MG PO Daily at bedtime December 13, 2017 12:00am April 05, 2025 12:53pmubrogepant 100 mg oral tablet (12 sources) End: 77-90-5962dwvk 1 tablet by mouth every twenty-four hours as needed Ubrogepant (Ubrelvy) 100 MG tablet Take 100 mg by mouth Daily as needed 07/14/2024 Discontinued (Therapy completed) Problems Active Problems Problem ClassificationProblemDateDocumented DateEpisodic/ChronicAbdominal pain (6 sources)Left flank pain; Translations: [Lower abdominal pain, unspecified] Onset: 569159-07-1847ReqlajofBiddmxof foot deformities (1 source)Other hammer toe(s) (acquired), right foot; Translations: [OTHER HAMMER TOES ACQUIRED RT FOOT]Onset: 74-66-0704IxfbumxMdnbnpgu foot deformities (1 source)Other hammer toe(s) (acquired), left foot; Translations: [OTHER HAMMER TOES ACQUIRED LT FOOT]Onset: 40-37-9411CqlvfkcIbircqs disorders (20 sources)Mixed anxiety and depressive disorder; Translations: [Anxiety disorder, unspecified]Onset: 412835-85-7870DqmlfxoHznvji (20 sources)Asthma; Translations: [Unspecified asthma, uncomplicated]Onset: 653343-36-2979UsxfeqxMqcgcz of cervix (20 sources)Malignant tumor of cervix; Translations: [Malignant neoplasm of cervix uteri, unspecified]Onset: 780854-50-2146ModvdgmCjqtie of cervix (2 sources)History of malignant neoplasm of cervix; Translations: [Personal history of malignant neoplasm of cervix uteri]42-91-1422MresujpfDtobnta kidney disease (5 sources)Chronic kidney disease; Translations: [Chronic kidney disease, unspecified]Onset: 02-20-2022 Resolved: 18-67-3104TfmgtotZtraygr obstructive pulmonary disease and bronchiectasis (20 sources)Pulmonary emphysema; Translations: [Chronic obstructive pulmonary disease with (acute) exacerbation]Onset: 579160-45-8527OovqewnTzfuuui ulcer of skin (20 sources)Non-pressure chronic ulcer of other part of right lower leg limited to breakdown of skin; Translations: [Non-pressure chronic ulcer of other part of left lower leg limited to breakdown of skin]Onset: 961814-09-1813Eaosjrb Congestive heart failure; nonhypertensive (20 sources)Chronic diastolic heart failure; Translations: [Chronic diastolic (congestive) heart failure]Onset: 815398-05-8980QfeutjzWqyamqeq mellitus with complications (20 sources)Disorder of kidney due to diabetes mellitus; Translations: [Type 2 diabetes mellitus with diabetic chronic kidney disease]Onset: 02-20-2022 Resolved: 66-90-7184ZibtayaZzipcste mellitus without complication (13 sources)Type 2 diabetes mellitus; Translations: [Type 2 diabetes mellitus without complications]Onset: 573370-17-0141BrpyhqzGhysclnwc of lipid metabolism (20 sources)Pure hypercholesterolemia, unspecified; Translations: [Hyperlipidemia, unspecified]Onset: 814205-57-4964CvvymqmPiidlsudfm disorders (20 sources)Gastro-esophageal reflux disease without esophagitis; Translations: [Gastroesophageal reflux disease]Onset: 12-05-2022 Resolved: 875677-39-7882JmftbuxVeipjwgzu hypertension (20 sources)Hypertensive disorder; Translations: [Essential (primary) hypertension]Onset: 842468-92-1317CldsohmIyrlivojwuzkd symptoms and ill- defined conditions (20 sources)Mixed incontinence; Translations: [Incontinence]Onset: 02-06-2022 ChronicGout and other crystal arthropathies (20 sources)Gout; Translations: [Gout, unspecified]Onset: ChronicHypertension with complications and secondary hypertension (5 sources)Chronic kidney disease due to hypertension; Translations: [Hypertensive chronic kidney disease withstage 1 through stage 4 chronic kidney disease, or unspecified chronic kidney disease]Onset: 02-20-2022 Resolved: 20-93-9226XlxrpbjMldr disorders (1 source)Major depressive disorder, single episode, unspecified; Translations: [ANASTACIO DEPRESS D/O SINGLE EPIS UNS]Onset: 75-51-5569ExxojdtSothzaisgnkur gastroenteritis (1 source)Noninfective gastroenteritis and colitis, unspecified; Translations: [NONINFECTIVE GE AND COLITIS UNS]Onset: 47-34-0291KjjhauvxVaancjzfoqa deficiencies (20 sources)Vitamin D deficiency; Translations: [Vitamin D deficiency, unspecified]Onset: 986908-24-8492VskzuigAcdxdkzxsrrzfa (20 sources)Arthritis; Translations: [Unspecified osteoarthritis, unspecified site]Onset: 130519-67-1062BoktdgaTchra aftercare (1 source)Other exterminator helper (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 therapy; Translations: [OTH SNF CURRENT DRUG THERAPY]Onset: 71-70-8354IkqfykawYqvem aftercare (1 source)long term (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; Translations: [TIRE SERVICE SUPERVISOR CURRENT USE OF ASPIRIN]Onset: 83-15-6728DefjwmxzSitzl aftercare (6 sources)Long-term current use of insulin; Translations: [long term (current) use of insulin]41-29-0514IdcqwbmrMsfrz and ill-defined heart disease (20 sources)Cardiomegaly; Translations: [Cardiomegaly]Onset: 10-25-2017 46-03-0816NrstkfxLqmqx and ill-defined heart disease (1 source)Cardiomegaly; Translations: [Cardiomegaly]Onset: 84-99-7140Indvzbo Other and unspecified benign neoplasm (1 source)Benign lipomatous tumor; Translations: [Benign lipomatous neoplasm of other sites]Onset: 71-98-7944RjccvrlcPoahs bone disease and musculoskeletal deformities (1 source)Acquired absence of other left toe(s); Translations: [ACQUIRED ABSENCE OF OTHER LEFT TOES]Onset: 70-38-8857PnsbfevfEzstb diseases of kidney and ureters (1 source)Urinary tract obstruction; Translations: [Other obstructive and reflux uropathy]Onset: 93-23-5412BswcjhsmRfzhy diseases of veins and lymphatics (1 source)Chronic venous hypertension (idiopathic) with ulcer and inflammation of bilateral lower extremity; Translations: [CHRN KEO HTN ULCR INFLAM ALEX LW EXT]Onset: 65-07-4800RtlvfnoKhdhj diseases of veins and lymphatics (1 source)Chronic venous hypertension (idiopathic) with ulcer of left lower extremity; Translations: [CHRON VENOUS HTN W/ULCER LT LW EXT]Onset: 09-01-2022 ChronicOther diseases of veins and lymphatics (1 source)Lymphedema, not elsewhere classified; Translations: [LYMPHEDEMA NOT ELSEWHERE CLASSIFIED]Onset: 32-43-3260KtccodiEzxpp diseases of veins and lymphatics (5 sources)Chronic peripheral venous hypertension with lower extremity complication; Translations: [Chronic venous hypertension (idiopathic) with ulcer of bilateral lower extremity]Onset: 434898-73-7138KjnptfbNxpsp diseases of veins and lymphatics (20 sources)Chronic peripheral venous hypertension; Translations: [Chronic venous hypertension (idiopathic) with ulcer of bilateral lower extremity]Onset: 281305-30-4754LiyrvlhDqwgd diseases of veins and lymphatics (18 sources)Stasis dermatitis and venous ulcer of right lower extremity due to chronic peripheral venous hypertension; Translations: [Chronic venous hypertension (idiopathic) with ulcer and inflammation of rightlower extremity] Onset: 413623-03-1261OlabbefCngng endocrine disorders (2 sources)Disorder of adrenal gland; Translations: [Other specified disorders of adrenal gland]Onset: 27-20-7982CbijoazEqivi endocrine disorders (20 sources)Adrenal mass; Translations: [Disorder of adrenal gland, unspecified] Onset: 956985-20-5600NzqkbauQditm endocrine disorders (2 sources)Disorder of adrenal gland, unspecifiedOnset: 02-20-2022 Resolved: 94-61-8957EeuupfzTxdku endocrine disorders (5 sources)Other specified disorders of adrenal gland; Translations: [OTHER SPEC DISORDERS ADRENAL GLAND]Onset: 29-97-5880MaqrrkzRbcwn gastrointestinal disorders (3 sources)Adrenal xkxl20-33-5754KbgjgkjbHxdpi lower respiratory disease (1 source)Hypoxemia; Translations: [HYPOXEMIA]Onset: 16-97-4021GbreeiatHmnbh nervous system disorders (5 sources)Chronic pain syndrome; Translations: [CHRONIC PAIN SYNDROME]Onset: 43-52-6102TnirporMxccn nervous system disorders (1 source)Other chronic pain; Translations: [OTHER CHRONIC PAIN]Onset: 90-29-8886JtjmfdtAmunh non-traumatic joint disorders (4 sources)Pain in right hip; Translations: [PAIN IN RIGHT HIP]Onset: 04-27-2022 EpisodicOther nutritional; endocrine; and metabolic disorders (2 sources)Localized adiposity; Translations: [Localized adiposity]ChronicOther nutritional; endocrine; and metabolic disorders (20 sources)Body mass index 40+ - severely obese; Translations: [Body mass index (BMI) 50.0-59.9, adult]Onset: 994681-74-3093TksydlqVzlat nutritional; endocrine; and metabolic disorders (3 sources)Body mass index (BMI) 50.0-59.9, adult; Translations: [BODY MASS INDEX BMI 50.0-59.9 ADULT]Onset: 88-14-8409AgffsvdGijmj nutritional; endocrine; and metabolic disorders (3 sources)Morbid (severe) obesity due to excess calories; Translations: [MORBID SEVERE OBES D/T EXCESS NHI]Onset: 81-92-4119OywltmvSlwcm nutritional; endocrine; and metabolic disorders (1 source)Obesity, unspecified; Translations: [OBESITY UNSPECIFIED]Onset: 34-99-3595HguvsmxAhjen nutritional; endocrine; and metabolic disorders (20 sources)Obesity caused by energy imbalance; Translations: [Morbid (severe) obesity due to excess calories]Onset: 008890-57-8511FywsnhjQlofk screening for suspected conditions (not mental disorders or infectious disease) (1 source)Encounter for screening mammogram for malignant neoplasm of breast; Translations: [ENC SCR MAMMO MALIG NEOPLASM BREAST]Onset: 21-78-7798Ivuzxzqc Other skin disorders (2 sources)Bilateral localized swelling of lower legs; Translations: [Localized swelling, mass and lump, lowerlimb, bilateral]38-45-7488PkyhzczhYkqmt upper respiratory disease (20 sources)Allergic rhinitis; Translations: [Other allergic rhinitis]Onset: 535036-63-1528DgtlnmmFyxcptvaoz and visceral atherosclerosis (20 sources)Peripheral vascular disease, unspecified; Translations: [Peripheral vascular disease, unspecified]Onset: 108762-73-3796RweljkvGiycbibun heart disease (20 sources)Pulmonary hypertension; Translations: [Pulmonary hypertension, unspecified]Onset: 516044-71-7302LasaqjgAxclzrbm codes; unclassified (3 sources)Obstructive sleep apnea (adult) (pediatric); Translations: [OBSTRUCTIVE SLEEP APNEA]Onset: 19-12-3722LclgkarKluqnzhc codes; unclassified (20 sources)Obstructive sleep apnea syndrome; Translations: [Obstructive sleep apnea (adult) (pediatric)]Onset: 478258-71-9545RmlkbwgJppxjjax codes; unclassified (1 source)Acquired absence of other specified parts of digestive tract; Translations: [ACQ ABSENCE OTH PART DIGESTV TRACT]Onset: 13-96-8104Prnaomcr Residual codes; unclassified (1 source)Acquired absence of both cervix and uterus; Translations: [ACQUIRED ABSENCE BOTH CERVIX AND UTERUS]Onset: 46-43-2209FkymywsgGysfcpmv codes; unclassified (1 source)Family history of malignant neoplasm of ovary; Translations: [FAM HX MALIGNANT NEOPLASM OVARY]Onset: 82-28-4669QpmvxydtEkraeytf codes; unclassified (1 source)Family history of malignant neoplasm, unspecified; Translations: [FAM HX MALIGNANT NEOPLASM UNS]Onset: 17-07-8206IzpoxcreYitvfgmag-related disorders (20 sources)Nicotine dependence; Translations: [Nicotine dependence, unspecified, uncomplicated]Onset: 36-64-0034PhiprmdXfjuzrn on above:Added secondary to documentation in Social History.Unclassified (1 source)TIRE SERVICE SUPERVISOR INJECT NONINSULN ANTIDIAB; Translations: [TIRE SERVICE SUPERVISOR INJECT NONINSULN ANTIDIAB]Onset: 50-70-2093Bkqafmtwnedv (3 sources)CONTACT W/AND (SUSP) EXPOS COVID-19; Translations: [CONTACT W/AND (SUSP) EXPOS COVID-19]Onset: 08-82-5821Docflzwdhhoh (3 sources)LOW BACK PAIN, UNSPECIFIED; Translations: [LOW BACK PAIN, UNSPECIFIED]Onset: 19-04-5349Ooldyamhqmoc (1 source)Obesity, class 3; Translations: [Obesity, class 3]Onset: 11-14-2023 Viral infection (1 source)COVID-19; Translations: [COVID-19]Onset: 09-29-2022 Past or Other Problems Problem ClassificationProblemDateDocumented DateEpisodic/ChronicAcquired foot deformities (1 source)Other deformities of toe(s) (acquired), left foot; Translations: [OTHER DEFORMITIES TOES ACQ LT FOOT]Onset: 93-65-7997Mquvlyxo Administrative/social admission (20 sources)Patient encounter status; Translations: [Dietary counseling and surveillance]Onset: 305964-23-2576McuffpsrLuhunxvz of urinary tract (20 sources)Kidney stone; Translations: [Calculus of kidney]Onset: 02-06-2022 EpisodicE Codes: Natural/environment (1 source)Other and unspecified overexertion or strenuous movements or postures, initial encounter; Translations: [OTH AND UNS OVREXRT/STRN MVMT/POS INT]Onset: 55-38-5222XfexbjppHftvp of unknown origin (18 sources)Fever; Translations: [Fever, unspecified]Onset: 189682-85-2273 EpisodicGenitourinary symptoms and ill-defined conditions (20 sources)Proteinuria; Translations: [Proteinuria, unspecified]Onset: 02-06-2022 Resolved: 12-46-9061LjrqjagnVbqgnpxz; including migraine (20 sources)Headache; Translations: [Headache disorder]Onset: 01-17-2024 13-10-6437DjqtorodWjfifjeckmmjh and screening for infectious disease (20 sources)Encounter for screening for other infectious and parasitic diseases; Translations: [Anti-nuclear factor positive]Onset: 973907-54-5163Opdeisdt Mood disorders (20 sources)Mood disorders; Translations: [DEPRESSION UNSPECIFIED]Onset: 651294-32-0044Iibdifc (20 sources)Tinea unguium; Translations: [Candidiasis of vagina]Onset: 64-39-1859VknadyuyAymofivqwqu deficiencies (20 sources)Vitamin deficiency; Translations: [Vitamin deficiency, unspecified] Onset: 407185-02-1193NljpdcnoGvkol aftercare (3 sources)long term (current) use of insulin; Translations: [SNF CURRENT USE OF INSULIN]Onset: 60-67-1232QalydfjeWgyum aftercare (20 sources)Long-term current use of inhaled steroid; Translations: [residential (current) use of inhaled steroids]Onset: 502370-33-2887DnkyupggMjedb and unspecified benign neoplasm (20 sources)Myelolipoma of adrenal gland; Translations: [Benign lipomatous neoplasm of other sites]Onset: 892331-74-1961EefdiscyTulma connective tissue disease (4 sources)Other muscle spasm; Translations: [OTHER MUSCLE SPASM]Onset: 22-75-5111UbomvyryLlvqt diseases of veins and lymphatics (20 sources)Vascular insufficiency; Translations: [Venous insufficiency (chronic) (peripheral)]Onset: 698920-74-7692YmenqviqOnhtg diseases of veins and lymphatics (2 sources)Venous insufficiency (chronic) (peripheral); Translations: [Venous insufficiency (chronic) (peripheral)]Onset: 12-50-6126FpdavbvsTanqd hematologic conditions (1 source)Secondary polycythemiaOnset: 03-08-2022 Resolved: 73-66-9420ZpzwueifRaxsp nervous system disorders (20 sources)Reduced mobility; Translations: [Other abnormalities of gait and mobility]Onset: 005017-44-5769PxrcktvjOibtz non-traumatic joint disorders (1 source)Effusion, left knee; Translations: [EFFUSION LEFT KNEE]Onset: 46-39-3205XhtcgpekVmneu non-traumatic joint disorders (1 source)Pain in left knee; Translations: [PAIN IN LEFT KNEE]Onset: 07-26-2022 EpisodicOther non-traumatic joint disorders (20 sources)Pain in right knee; Translations: [Pain in joint, lower leg]Onset: 185175-84-9158WzlkdwdlFohbi nutritional; endocrine; and metabolic disorders (20 sources)Severe obesity; Translations: [Morbid (severe) obesity due to excess calories]Onset: 07-10-2023 Resolved: 469322-26-8932AftndgsEnzqc nutritional; endocrine; and metabolic disorders (20 sources)Excess panniculus of abdomen; Translations: [Localized adiposity] Onset: 10-25-2017 Resolved: 629046-32-9668MjsofmwEzngm skin disorders (1 source)Nail dystrophy; Translations: [NAIL DYSTROPHY]Onset: 09-01-2022 EpisodicOther skin disorders (1 source)Corns and callosities; Translations: [CORNS AND CALLOSITIES]Onset: 97-01-1295OjuapvnfAheuw skin disorders (1 source)Xerosis cutis; Translations: [XEROSIS CUTIS]Onset: 68-03-4997Irvcclqw Other skin disorders (20 sources)Hyperpigmentation of skin; Translations: [Disorder of pigmentation, unspecified]Onset: 187673-03-5816XxgtmluwKncvtm media and related conditions (20 sources)Acute suppurative otitis media without spontaneous rupture of ear drum; Translations: [Acute suppurative otitis media without spontaneous rupture of ear drum, left ear]Onset: 01-17-2024 Resolved: 961618-21-7509UlriwuvnLhwtoshmzq disorders (not diabetes) (20 sources)Acute pancreatitis without necrosis or infection, unspecified; Translations: [Pancreatitis]Onset: 418721-36-8002CwlnxxrzSmspngjgu (except that caused by tuberculosis or sexually transmitted disease) (20 sources)Pneumonia; Translations: [Pneumonia, unspecified organism]Onset: 09-17-2023 Resolved: 480479-37-0950OubxbfhrVajxmsok codes; unclassified (3 sources)Localized edema; Translations: [LOCALIZED EDEMA]Onset: 09-01-2022 EpisodicResidual codes; unclassified (20 sources)Edema; Translations: [Edema, unspecified]Onset: 07-10-2023 Resolved: 855672-51-3012MgughghgZhsojoyu codes; unclassified (20 sources)Bilateral lower limb edema; Translations: [Localized edema]Onset: 637414-88-9196SjxmuszwBsxtyuvt codes; unclassified (20 sources)Insomnia; Translations: [Insomnia, unspecified]Onset: 09-17-2023 22-59-2118EjscklkrYptuujgu codes; unclassified (20 sources)Tobacco user; Translations: [Tobacco use]Onset: 09-17-2023 Resolved: 645518-23-5263ZismaiwkPeglvbnp codes; unclassified (20 sources)Edema of lower extremity; Translations: [Localized edema]Onset: 09-17-2023 Resolved: 316479-09-4313UbststeuYnba and subcutaneous tissue infections (20 sources)Cellulitis of right lower limb; Translations: [Cutaneous abscess of left axilla]Onset: 53-62-2952RqwarlxwJcbxwfjfwkw; intervertebral disc disorders; other back problems (20 sources)Lumbar radiculopathy; Translations: [Radiculopathy, lumbar region] Onset: 859533-34-1457JwlxvehbLwukrnj and strains (1 source)Strain of muscle, fascia and tendon of lower back, initial encounter; Translations: [STRAIN MUSC FASC TENDON LW BACK INT]Onset: 29-93-3722Rlztoyzn Unclassified (1 source)CONTACT W/AND (SUSP) EXPOS COVID-19; Translations: [CONTACT W/AND (SUSP) EXPOS COVID-19]Onset: 31-75-3890Bubmjvwaaypk (1 source)LOW BACK PAIN, UNSPECIFIED; Translations: [LOW BACK PAIN, UNSPECIFIED] Onset: 41-44-5713Gddfbjloqidk (4 sources)Patient encounter jwzvjy19-37-4608Fnyjjdgfulzp (1 source)Obesity, class 3; Translations: [Obesity, class 3]Onset: 08-08-2024 Varicose veins of lower extremity (20 sources)Varicose veins of right lower extremity with ulcer of unspecified site; Translations: [Varicose veins of lower extremities with ulcer]Onset: 06-19-2024 Resolved: 372673-01-6540Ldlfgkwf Results Test NameValueInterpretationReference RangeFacilityReminderson 04-28-2025 RemindersReminders From: [...] ) Other: PROVIDER RELATED REMINDER:_ ( ) Environmental Epidemiologist ( ) Call Pharmacy ( ) Call [...] unable to leave a message at this time.[facility] Office/Clinic Noteon 51-55-7525Nbkjpxvi Office/Clinic NoteChief Complaint Leg ulcer History of Present Illness Mitzi was referred by her footwear sales associate for evaluation of PVD. She has had ulcers in the bilateral lower extremities above the ankle for about a year. She has been seen by wound care in [facility]. They are applying compression with medicated [...] signed by Corinne Kellogg MD 04/23/25 11:56 [facility] Ankle Brachial Indiceson [id number] Ankle Brachial IndicesPreliminary Technologist Report Ankle/brachial index study was performed. Please see below for information. Property Management Specialist: Zayra Ag, RVS Radiologist Report BILATERAL LOWER [...] please contact our Vascular Rehabilitation Department at [phone]. Final Signed by: Jose F Casanova MD Signed (Electronic Signature): 04.17.2025 3:28 pm Transcribed by: Jose F Casanova MD Transcribed DT/TM: 04.17.2025 3:12 (If Report is Signed, Electronically Signed in Other Vendor System)[facility] HospitalBasophils Auto (Bld) [#/Vol]Ordered By: Flynn Urias on 61-59-2644Cvwkvitgc (Bld) [#/Vol]0.1 10 3/uL0.0-0.1FPomerene HospitalBasophils/100 WBC Auto (Bld)Ordered By: Flynn Urias on 79-20-6828Jcjewlpot/100 WBC (Bld)0.6 %0.2-2.0[facility] Eosinophils/100 WBC Auto (Bld)Ordered By: Flynn Urias on 03-26-2025 Eosinophils/100 WBC (Bld)2.7 %0.9-7.0[facility] Erythrocyte distribution width Auto (RBC) [Ratio]Ordered By: Flynn Urias on 89-31-6164Odawogphwhb distribution width (RBC) [Ratio]16.4 %High11.0-15.0 [facility] MiamisburgGlomerular filtration rate (GFR) estimation in non- AmericanOrdered By: Flynn Urias on 95-33-9035SCY/1.73 sq M.predicted among non-blacks MDRD (S/P/Bld) [Vol rate/Area]mL/min/{1.73_m2}>=60 mL/min/1.73m 2FPomerene HospitalHematocrit Auto (Bld) [Volume fraction]Ordered By: Flynn Urias on 65-61-7940Zfcapyhuch (Bld) [Volume fraction]52.5 %High36.0-48.0[facility]amisburgHemoglobin [Mass/volume] in BloodOrdered By: Flynn Urias on 35-72-7444Ghvgbydlwy (Bld) [Mass/Vol]16.1 g/cTGulq34.0-16.0[facility]amisburgLaboratory - Chemistry and Chemistry - challengeOrdered By: Flynn Urias on 03-26-2025 Albumin [Mass/Vol]2.8 g/dLLow3.4-5.0[facility]burgCalcium [Mass/Vol]8.6 mg/dL8.5-10.1FPomerene HospitalChloride [Moles/Vol] 105 mmol/Y20-943JdkzexrdkKettering Health MiamisburgCO2 [Moles/Vol]31.5 mmol/L 21.0-32.0[facility] MiamisburgCreatinine [Mass/Vol]0.69 mg/dL 0.55-1.02[facility] MiamisburgGFR/1.73 sq M.predicted MDRD (S/P/Bld) [Vol rate/Area]mL/min/{1.73_m2}>=60 mL/min/1.73m 2FPomerene HospitalGlucose [Mass/Vol]147 mg/rEThuc87-591JzttchduxKettering Health [facility]burg Potassium [Moles/Vol]4.2 mmol/L3.5-5.1FRegency Hospital Cleveland Westodium [Moles/Vol]141 mmol/P588-695IheucrcnuKettering Health MiamisburgUrea nitrogen [Mass/Vol]15.0 mg/dL7.0-18.0[facility] MiamisburgUrea nitrogen/Creatinine [Mass ratio]21.7 mg/mgKettering Health Miamisburg Laboratory - Hematology and Cell countsOrdered By: Flynn Urias on 03-26-2025 ESR (Bld) [Velocity]48 mm/hHigh<=30[facility] MiamisburgImmature granulocytes/100 WBC (Bld)0.3 %0.0-0.5FPomerene Hospital Leukocytes [#/volume] corrected for nucleated erythrocytes in Blood by Automated counOrdered By: Flynn Urias on 53-76-2996LXU corrected for nucl RBC Auto (Bld) [#/Vol]10.0 10 3/uL4.0-11.0[facility] MiamisburgLymphocytes Auto (Bld) [#/Vol]Ordered By: Flynn Urias on 65-99-0937Yunmueqgncv (Bld) [#/Vol]2.7 10 3/uL1.2-3.8[facility] MiamisburgLymphocytes/100 WBC Auto (Bld)Ordered By: Flynn Urias on 49-21-7933Jmabfcjtbxb/100 WBC (Bld)27.2 % 20.5-60.0[facility] MiamisburgMCH Auto (RBC) [Entitic mass]Ordered By: Flynn Urias on 74-89-9383ALJ (RBC) [Entitic mass]27.2 pg26.7-34.0[facility] MiamisburgMCHC Auto (RBC) [Mass/Vol]Ordered By: Flynn Urias on 68-08-0736QVNT (RBC) [Mass/Vol]30.7 g/dL29.9-35.2FPomerene HospitalMCV Auto (RBC) [Entitic vol]Ordered By: Flynn Urias on 93-32-6559AMA (RBC) [Entitic vol]88.7 fL81.0-99.0[facility] MiamisburgMonocytes Auto (Bld) [#/Vol]Ordered By: Flynn Urias on 89-13-7766Xjnkrqnlq (Bld) [#/Vol] 0.5 10 3/uL0.3-0.8[facility]amisburgMonocytes/100 WBC Auto (Bld) Ordered By: Flynn Urias on 19-57-8673Rtdefcoyg/100 WBC (Bld)5.2 %1.7-12.0 [facility] MiamisburgNeutrophils Auto (Bld) [#/Vol]Ordered By: Flynn Urias on 86-16-8318Jedbenszujn (Bld) [#/Vol]6.4 10 3/uL1.4-6.5FPomerene HospitalNeutrophils/100 WBC Auto (Bld)Ordered By: Flynn Urias on 21-98-5847Ieukbynylhy/100 WBC (Bld)64.0 %43.0-75.0[facility]amisburgNo Panel InformationOrdered By: Flynn Urias on 07-20-4161K-Reactive Protein, Quantitative3.94 mg/dLHigh<=0.50[facility] Eosinophils # (Auto)0.3 10 3/uL0.0-0.7FPomerene HospitalImmature Granulocyte # (Auto)0.03 10 3/uL0.00-0.03[facility] Phosphorus Level3.5 mg/dL2.6-4.7FPomerene HospitalPlatelet mean volume Auto (Bld) [Entitic vol]Ordered By: Flynn Urias on 53-84-8025Xkvvbndh mean volume (Bld) [Entitic vol]12.8 fL9.5-13.5FPomerene Hospital Platelets Auto (Bld) [#/Vol]Ordered By: Flynn Urias on 07-79-4026Twyrwviyk (Bld) [#/Vol]146 10 3/eKBnr974-204BkxuyyzpxKettering Health MiamisburgRBC Auto (Bld) [#/Vol]Ordered By: Flynn Urias on 15-25-4283JCU (Bld) [#/Vol]5.92 10 6/uLHigh4.20-5.40Mer[facility] Health Anderson Hospitalerum or plasma anion gap determinationOrdered By: Flynn Urias on 55-57-7894Dgscv gap [Moles/Vol]8.7 mmol/LFPomerene HospitalBasophils Auto (Bld) [#/Vol]Ordered By: Price Arora on 81-96-2556Auxeevxbi (Bld) [#/Vol]0.1 10 3/uL0.0-0.1FPomerene HospitalBasophils/100 WBC Auto (Bld)Ordered By: Price Arora on 88-97-8171Faqbgnsog/100 WBC (Bld)0.4 %0.2-2.0[facility] Eosinophils/100 WBC Auto (Bld)Ordered By: Price Arora on 03-25-2025 Eosinophils/100 WBC (Bld)2.4 %0.9-7.0[facility] Erythrocyte distribution width Auto (RBC) [Ratio]Ordered By: Price Arora on 49-88-1343Phnxqujyzjn distribution width (RBC) [Ratio]16.4 %High11.0-15.0 [facility] MiamisburgGlomerular filtration rate (GFR) estimation in non- AmericanOrdered By: Price Arora on 25-32-5224GZO/1.73 sq M.predicted among non-blacks MDRD (S/P/Bld) [Vol rate/Area]mL/min/{1.73_m2}>=60 mL/min/1.73m 2FPomerene HospitalHematocrit Auto (Bld) [Volume fraction]Ordered By: Price Arora on 57-98-7457Zbgnofkhyb (Bld) [Volume fraction]56.6 %High36.0-48.0[facility] MiamisburgHemoglobin [Mass/volume] in BloodOrdered By: Price Arora on 36-86-9857Vzrwqjjooi (Bld) [Mass/Vol]17.4 g/rTExvc98.0-16.0[facility] MiamisburgLaboratory - Chemistry and Chemistry - challengeOrdered By: Price Arora on 03-25-2025 Bilirubin Ql (U)NegativeNEGATIVEKettering Health MiamisburgGlucose (U) [Mass/Vol]NegativeNEGATIVEKettering Health MiamisburgKetones Ql (U) NegativeNEGATIVEKettering Health MiamisburgpH (U)8.0 [pH]5.0-9.0[facility] Hospitalpecific gravity (U) [Rel density]1.0201.005-1.025 [facility] MiamisburgUrobilinogen Qn (U)1.0 {Little'U}/dL0.2-1.0 [facility]amisburgCalcium [Mass/Vol]9.2 mg/dL8.5-10.1FPomerene HospitalChloride [Moles/Vol]106 mmol/Z62-844MljzrpqpiKettering Health MiamisburgCO2 [Moles/Vol]36.9 mmol/LHigh21.0-32.0[facility] MiamisburgCreatinine [Mass/Vol]0.86 mg/dL0.55-1.02[facility] GFR/1.73 sq M.predicted MDRD (S/P/Bld) [Vol rate/Area]mL/min/{1.73_m2}>=60 mL/min/1.73m 2FPomerene HospitalGlucose [Mass/Vol]164 mg/dLHigh 74-106[facility] MiamisburgPotassium [Moles/Vol]4.0 mmol/L3.5-5.1 [facility] Hospitalodium [Moles/Vol]144 mmol/L386-507MwdshzaseKettering Health MiamisburgUrea nitrogen [Mass/Vol]14.0 mg/dL7.0-18.0[facility] MiamisburgUrea nitrogen/Creatinine [Mass ratio]16.3 mg/mgKettering Health MiamisburgLaboratory - Hematology and Cell countsOrdered By: Price Arora on 77-89-7252Eoequuma granulocytes/100 WBC (Bld)0.3 %0.0-0.5 [facility]burgLaboratory - Specimen informationOrdered By: Price Arora on 74-46-2594Pjlpocplee (U)CLEARCLEARFPomerene HospitalColor (U)LT. YELLOWYELLOWKettering Health MiamisburgLaboratory - UrinalysisOrdered By: Price Arora on 93-93-9068Gswvxwy casts LM Ql (Urine sed) RAREKettering Health MiamisburgLeukocyte esterase Test strip Ql (U) NegativeNEGATIVEKettering Health MiamisburgMucus Ql (Urine sed)TRACE AbnormalNONE SEENKettering Health MiamisburgNitrite Ql (U)NegativeNEGATIVE [facility]amisburgProtein Ql (U)100 mg/dLAbnormalNEG/TRACE [facility] MiamisburgLeukocytes [#/volume] corrected for nucleated erythrocytes in Blood by Automated counOrdered By: Price Arora on 03-25-2025 WBC corrected for nucl RBC Auto (Bld) [#/Vol]11.8 10 3/uLHigh4.0-11.0[facility] MiamisburgLymphocytes Auto (Bld) [#/Vol]Ordered By: Price Arora on 83-22-9708Sbelxzvnpjj (Bld) [#/Vol]3.1 10 3/uL1.2-3.8[facility] MiamisburgLymphocytes/100 WBC Auto (Bld)Ordered By: Price Arora on 70-39-1702Vwmjsltfpab/100 WBC (Bld)26.4 %20.5-60.0[facility] Auto (RBC) [Entitic mass]Ordered By: Price Arora on 73-45-4869KVK (RBC) [Entitic mass]27.5 pg26.7-34.0[facility] CincinnatiHC Auto (RBC) [Mass/Vol]Ordered By: Price Arora on 86-63-0202GHPZ (RBC) [Mass/Vol]30.7 g/dL29.9-35.2[facility] Medical CenterMCV Auto (RBC) [Entitic vol] Ordered By: Price Arora on 68-65-5436DUV (RBC) [Entitic vol]89.4 fL81.0-99.0 [facility] MiamisburgMonocytes Auto (Bld) [#/Vol]Ordered By: Price Arora on 00-28-1670Npmdweqet (Bld) [#/Vol]0.6 10 3/uL0.3-0.8[facility] MiamisburgMonocytes/100 WBC Auto (Bld)Ordered By: Price Arora on 82-82-8342Jatgtavcg/100 WBC (Bld)5.2 %1.7-12.0[facility] Neutrophils Auto (Bld) [#/Vol]Ordered By: Price Arora on 04-44-8328Setczdvusmf (Bld) [#/Vol]7.7 10 3/uLHigh1.4-6.5FPomerene Hospital Neutrophils/100 WBC Auto (Bld)Ordered By: Price Arora on 03-25-2025 Neutrophils/100 WBC (Bld)65.3 %43.0-75.0[facility] MiamisburgNo Panel InformationOrdered By: Price Arora on 79-36-2560Ntchq BacteriaTRACE #/HPFAbnormalNONE [facility] HospitalUrine Culture ReflexedNO [facility] MiamisburgUrine Occult BloodNegativeNEGATIVEKettering Health MiamisburgUrine Other CastsSEEN #/LPFAbnormalNONE [facility] HospitalUrine Other CrystalsNone Seen #/HPFNone [facility] HospitalUrine RBC0-2 #/HPF0-2FPomerene Hospital Urine Squamous Epithelial CellsFEW #/LPFAbnormalNONE/RAREKettering Health MiamisburgUrine WBC0-2 #/HPFAbnormalNONE [facility] HospitalEosinophils # (Auto)0.3 10 3/uL0.0-0.7FPomerene Hospital Immature Granulocyte # (Auto)0.04 10 3/uLHigh0.00-0.03[facility] MiamisburgPlatelet mean volume Auto (Bld) [Entitic vol]Ordered By: Price Arora on 97-17-9618Qhgrpgia mean volume (Bld) [Entitic vol]12.4 fL9.5-13.5FPomerene HospitalPlatelets Auto (Bld) [#/Vol]Ordered By: Price Arora on 31-70-6298Nnxgstrdk (Bld) [#/Vol]160 10 3/xT858-242PzlzgaxkyKettering Health MiamisburgRBC Auto (Bld) [#/Vol]Ordered By: Price Arora on 68-81-5546PMB (Bld) [#/Vol]6.33 10 6/uLHigh4.20-5.40[facility] Hospitalerum or plasma anion gap determinationOrdered By: Price Arora on 77-68-5176Oogrc gap [Moles/Vol]5.1 mmol/LFPomerene HospitalVascular Office/Clinic Noteon 05-79-3756Tmzezkty Office/Clinic NoteChief Complaint lle wound History of [...] She has had testing done at the [facility] last year which she brought with [...] Electronically signed by Omero Santana 03/23/25 12:01 [facility] HospitalPodiatry Office/Clinic Noteon 07-66-8550Nvbjodns Office/Clinic NoteThe content of this note was [...] wraps (gauze, tila bandage, Coban II, tuba upholstery auto trimmer), Dakins solution, a 40-daycourse of antibiotics, and [...] other blood thinners. The patient resides in [place]. Review of Systems Constitutional: Negative for signs [...] their lower extremities Positi (more content not included)...NormalBarnesville HospitalComment on above:Order Comment: Missing Attachment [id number] Can be viewed in source systemXR Tibia/Fibula Righton 05-91-0697PG Tibia/Fibula Right2 views right tib- fib demonstrate: [...] Signed, Electronically Signed in Other Vendor System)Normal Barnesville HospitalResults Follow-Upon 29-28-7574Bbxdgqb Follow-Up [id number] Mitzi Macias 1970 F Date Provider Department Center 02/04/2025 166-AMI ORO CARDIOLOGY None Family History Problem Relation Age of Onset Heart attack Paternal Grandmother Family Status - Relation Status Age at Mother Father Paternal GrandmotherNGreene Memorial HospitalOrders Onlyon 72-27-0990Yhzixl [id number] Mitzi Macias 1970 F Date Provider Department Center 01/30/2025 [id number], [facility] Family History Problem Relation Age of Onset Heart attack Paternal Grandmother Family Status - Relation Status Age at Mother Father Paternal GrandmoTrumbull Regional Medical CenterCA ECHO DOPPLER COMPLETEon 50-90-6169[place] [address] Cardiology Report Signed Patient: MITZI MACIAS MR#: [id number] : 1970 Acct:[id number] Age/Sex: 54 / F ADM Date: 01/29/25 Loc: CARD Attending Dr: AMI ORO APRN Ordering Physician: AMI ORO APRN Date of Service: 01/29/25 Procedure(s): CA echo doppler complete Accession Number(s): [id number] cc: Mckayla Blas BRAZER PRODUCTION LINE; AMI ORO APRN Patient Name: MITZI MACIAS MR#: [id number] : 1970 Exam Date: 01/29/2025 Ordering Doctor: AMI ORO PROOF PRESS OPERATOR ECHOCARDIOGRAM REPORT PROCEDURE: CA ECHO DOPPLER COMPLETE [...] HERRERA Signed By: 01/29/251839 DD/ 39 TD/TT: Roaster Supervisor:SONNYHRadiology, Radiologist, - 01/29/2025 [place] [address] Cardiology Report Signed Patient: MITZI MACIAS MR#: [id number] : 1970 Acct:[id number] Age/Sex: 54 / F ADM Date: 01/29/25 Loc: CARD Attending Dr: AMI ORO APRN Ordering Physician: AMI ORO APRN Date of Service: 01/29/25 Procedure(s): CA echo doppler complete Accession Number(s): [id number] cc: Mckayla Blas [employer]RA[employer]ODUCTION LINE; AMI ORO APRN Patient Name: MITZI MACIAS MR#: [id number] : 1970 Exam Date: 01/29/2025 Ordering Doctor: [...] HERRERA Signed By: 01/29/251839 DD/ 39 TD/TT: Roaster Supervisor: CARLOS HealthcareRadiology Study observation (narrative)[facility] ECHO DOPPLER COMPLETEOrdered By: Radiologist Radiology on 75-27-1667VFGX Healthcare Work Phone: Glucose (Bld) [Mass/Vol]on 22-39-5240Irtotyx Blood, PCI379 mg/dLNOWV HealthcareLaboratory - Hematology and Cell countson 01-29-2025 HbA1c (Bld) [Mass fraction]8.4 %NOMS HealthcareNo Panel Informationon 01-29-2025 Interpretation and review of laboratory resultsAbnormalNOMS HealthcareNOMS HealthcareOffice Visiton 20-50-5736Pknrsz-up [id number] Mitzi Macias 1970 F Date Provider Department Center 01/06/2025 AMI SARABIA CARD [place] [facility] Family History Problem Relation Age of Onset Heart attack Paternal Grandmother Family Status - Relation Status Age at Mother Father Paternal Grandmother Level of Service:39112 IN OFFICE/OUTPATIENT ESTABLISHED MOD MDM 30 MIN Reason for Visit and Comments: Congestive Heart Failure [127] Hypertension [428958] Hyperlipidemia [182]NormalAultman Hospital36on Regarding lab results from 10/08/2024: MD Mickie Merritt MA Lipids, ALT AST, and BMP are normal. HbA1c was not performed. Continue current management. LM on patient's VM.NormalAultman HospitalGlucose (Bld) [Mass/Vol]Ordered By: Mica Sauceda on 91-39-2038Txnvrni Blood, POC97 mg/dLNOWV HealthcareLaboratory - Hematology and Cell countson 20-68-0556LkX6q (Bld) [Mass fraction]7.4 %NOMS HealthcareNo Panel InformationOrdered By: Mica Sauceda on 87-81-3909MLFZ HealthcareTBH UA (CLEAN/CATCH) MICROSCOPIC IF INDICATEon 00-47-1990POMUPNKRJ URINENegativeNEGATIVENOMS HealthcareBLOOD URINENegative NEGATIVENOMS HealthcareClarity (U)CLEARCLEARNOMS HealthcareColor (U)YELLOWYELLOW NOMS HealthcareGLUCOSE URINE UANegativeNEGATIVE mg/dLNOMS Healthcare Interpretation and review of laboratory resultsAbnormalNOMS HealthcareKetones Ql (U)NegativeNEGATIVE mg/dLNOMS HealthcareLeukocyte esterase Test strip Ql (U) NegativeNEGATIVENOMS HealthcareNITRITE URINENegativeNEGATIVENOMS HealthcarepH (U)5.5 [pH]5.0 - 9.0NOMS HealthcareProtein (U) [Mass/Vol]30 mg/dLAbnormal NEG/TRACENOMS HealthcareSPECIFIC GRAVITY URINE>=1.480Tcgouxnp1.005 - 1.025NOWV HealthcareURINE MICROSCOPIC INDICATEDYESNOWV HealthcareUROBILINOGEN URINE1.0 EU/dL0.2 - 1.0 EU/dLNOWV HealthcareCLINISYNCNOMS HealthcareALL CBC WITH AUTO DIFFon 45-54-0842MSHURSVLU ABSOLUTE AUTO0.1NOMS HealthcareBasophils/100 WBC (Bld)0.5 %0.2 - 2.0 %NOMS HealthcareEosinophils/100 WBC (Bld)1.9 %0.9 - 7.0 % NOMS HealthcareErythrocyte distribution width (RBC) [Ratio]14.6 %11.0 - 15.0 % NOM HealthcareHematocrit (Bld) [Volume fraction]50.9 %High36.0 - 48.0 %NOM HealthcareHemoglobin (Bld) [Mass/Vol]16.1 g/zAOydm13.0 - 16.0 g/dLSaint Francis Hospital & Health ServicesIMMATURE GRANULOCYTES ABS AUTO0.04HighNOWashington County Memorial HospitalImmature granulocytes/100 WBC (Bld)0.3 %0.0 - 0.5 %[facility] HealthcareInterpretation and review of laboratory resultsAbnormalNOWV HealthcareLYMPHOCYTES ABSOLUTE AUTO3.2 NOMLafayette Regional Health CenterLymphocytes/100 WBC (Bld)25.1 %20.5 - 60.0 %[facility] CenterH (RBC) [Entitic mass]29.2 pg26.7 - 34.0 pgNOSSM Saint Mary's Health CenterHC (RBC) [Mass/Vol] 31.6 g/dL29.9 - 35.2 g/dLMissouri Delta Medical CenterV (RBC) [Entitic vol]92.2 fL81.0 - 99.0 fLSaint Francis Hospital & Health ServicesMONOCYTES ABSOLUTE AUTO0.7NOWV HealthcareMonocytes/100 WBC (Bld)5.2 %1.7 - 12.0 %NOM HealthcareNEUTROPHILS ABSOLUTE AUTO8.6HighSaint Francis Hospital & Health ServicesNeutrophils/100 WBC (Bld)67 %43.0 - 75.0 %[facility] Health ServicesPlatelet mean volume (Bld) [Entitic vol]12.8 fL9.5 - 13.5 fLSaint Francis Hospital & Health ServicesTBH EO #0.2NOMS HealthcareNEW [facility] FSO956DuhWZBPSaint Luke's North Hospital–Barry [facility] RBC5.52HighNOWV HealthcareNEW [facility] WBC12.8 [facility] ReadingCLINISYNCNOMS HealthcareOffice Visiton 61-85-1867Wlipbw-up [id number] Mitzi Macias 1970 F Date Provider Department Center 08/08/2024 [id number] [facility] Family History Problem Relation Age of Onset Heart attack Paternal Grandmother Family Status - Relation Status Age at Paternal Grandmother Level of Service:77577 IN OFFICE/OUTPATIENT ESTABLISHED MOD MDM 30 MIN Reason for Visit and Comments: Congestive Heart Failure [127] - Denies chest pain, SOB, and palpitations. Hypertension [311854] Hyperlipidemia [182] LVH [Other] Edema [[id number]] - Denies worsening edema. She sees wound care for RLE ulcer. She was seeing the vein specialists here in town but they are moving to [place] in a few weeks.NormalAultman HospitalProvider Letteron 96-78-8749Ugjznevf LetterProvider Letter June 11, 2024 MITZI [address]AS [address] [place] [id number] : 1970 To Whom It May Concern, Please excuse above patient from work. Date of Illness: From: 06/11/24 8:30am To: 06/11/24 12:30pm Comments: _Brian Macias was with his for her doctor's appointment. Sincerely, Andra Forrester, Surgical SchedulerNormUniversity Hospitals Cleveland Medical CenterUrology Office/Clinic Noteon 79-60-2899Hvzadts Office/Clinic NoteUrology Office/Clinic Note Chief Complaint 18 mth HPI Staff 53 yo here 18 month f/u CT for adrenal mass. CT SCAN 05/12/24-[facility] Previous DX: adrenal mass, kidney stone, [...] [facility] [address], [place] [address]- Additional Instructions: [address] AP [...] TIDAC potassium chloride 10 (more content not included)...[facility] Regional Medical CenterComment on above:Result Comment: Electronically Signed By: Elbert ARAUZ MD\.br\Date and Time Signed: 06/11/24 10:55 EST\.br\Electronically Co- Signed By: Maria Elena Negrete\.br\Date and Time Co-Signed: 06/11/24 10:53 EST Glucose (Bld) [Mass/Vol]Ordered By: Mica Sauceda on 37-20-1775Vrycvtn Blood, YUR251 mg/dLNOWV HealthcareLaboratory - Hematology and Cell countson 05-27-2024 HbA1c (Bld) [Mass fraction]9.2 %[facility] HealthcareNo Panel InformationOrdered By: Mica Sauceda on 16-67-5111ETIJ HealthcareCT ABDOMEN PELVIS W CONon 05-12-2024 [place] [address] CT Scan Report Signed Patient: MITZI MACIAS MR#: [id number] : 1970 Acct:[id number] Age/Sex: 53 / F ADM Date: 05/12/24 Loc: CT Attending Dr: Gaviota MAYERS Ordering Physician: Gaviota Adames Date of Service: 05/12/24 Procedure(s): CT abdomen pelvis w con Accession Number(s): [id number] cc: Mckayla Blas NP [place] [id number] Patient Name: MITZI MACIAS MRN: [id number] date: 1970 Sex: F Assigned Patient Location: CT Current Patient Location: Accession/Order Number: [id number] Exam Date: 05/12/2024 11:15 Report Date: 05/12/2024 [...] Signed By: 05/12/24 1419 DD/ 1416 TD/TT: Roaster Supervisor:TBHRadiology, Radiologist, MD - 05/12/2024 [place] [address] CT Scan Report Signed Patient: MITZI MACIAS MR#: [id number] : 1970 Acct:[id number] Age/Sex: 53 / F ADM Date: 05/12/24 Loc: CT Attending Dr: Gaviota MAYERS Ordering Physician: Gaviota Adames Date of Service: 05/12/24 Procedure(s): CT abdomen pelvis w con Accession Number(s): [id number] cc: Mckayla Blas NP [place] [id number] Patient Name: MTIZI MACIAS MRN: TBH:[id number] date: 1970 Sex: F Assigned Patient Location: CT Current Patient Location: Accession/Order Number: [id number] Exam Date: 05/12/2024 11:15 Report Date: 05/12/2024 [...] Signed By: 05/12/24 1419 DD/ 15 TD/TT: Roaster Supervisor: CARLOS HealthcareRadiology Study observation (narrative)[facility] HealthcareCT ABDOMEN PELVIS W CONOrdered By: Radiologist Radiology on 64-30-7331TWMH [employer] Work Phone: MR LUMBAR SPINE WO CONon 42-95-5172[place] [address] Magnetic Resonance Report Signed Patient: MITZI MACIAS MR#: [id number] : 1970 Acct:[id number] Age/Sex: 53 / F ADM Date: 05/12/24 Loc: MRI Attending Dr: Celestina Cochran NP Ordering Physician: Celestina Cochran NP Date of Service: 05/12/24 Procedure(s): MR lumbar spine wo con Accession Number(s): [id number] cc: Mckayla Blas NP; Celestina Cochran NP [place] [address] Patient Name: MITZI MACIAS MRN: [id number] date: 1970 Sex: F Assigned Patient Location: MRI Current Patient Location: CT Accession/Order Number: [id number] Exam Date: 05/12/2024 09:21 Report Date: 05/12/2024 14:41 At the request of: CELESTINA COCHRAN Procedure: MR lumbar spine wo con [...] Signed By: 05/12/24 1443 DD/ 1441 TD/TT: Roaster Supervisor:TBHRadiology, Radiologist, - 05/12/2024 [place] [address] Magnetic Resonance Report Signed Patient: MITZI MACIAS MR#: [id number] : 1970 Acct:[id number] Age/Sex: 53 / F ADM Date: 05/12/24 Loc: MRI Attending Dr: Celestina Cochran NP Ordering Physician: Celestina Cochran NP Date of Service: 05/12/24 Procedure(s): MR lumbar spine wo con Accession Number(s): [id number] cc: Mckayla Blas NP; Celestina Cochran NP [address] [address] Patient Name: MITZI MACIAS MRN: [facility]:[id number] date: 1970 Sex: F Assigned Patient Location: MRI Current Patient Location: CT Accession/Order Number: [id number] Exam Date: 05/12/2024 09:21 Report Date: 05/12/2024 14:41 At the request of: CELESTINA COCHRAN Procedure: MR lumbar spine wo con [...] Signed By: 05/12/24 1443 DD/ 1441 TD/TT: Roaster Supervisor: CARLOS HealthcareRadiology Study observation (narrative)[facility] LUMBAR SPINE WO CONOrdered By: Radiologist Radiology on 75-79-5929JSGX Healthcare Work Phone: TB CREATININEon 35-89-8276Xqddhmyznn [Mass/Vol]0.92 mg/dL0.55 - 1.02 mg/dLNOWV HealthcareGFR/1.73 sq M.predicted CKD-EPI (S/P/Bld) [Vol rate/Area]>60>=60 mL/min/1.73m 2NOMS HealthcareTBH EGFR-NON AF PALAUAN>60 >=60 mL/min/1.73m 2NOMS HealthcareCLINISYNCNOKLAHOMA SPINE H[facility]ITAL [facility] HealthcareSEGMENTAL BLOOD PRESSUREon 33-13-7877PcjDoug[place] [address] Vein Report Signed Patient: MITZI MACIAS MR#: [id number] : 1970 Acct:[id number] Age/Sex: 53 / F ADM Date: 04/24/24 Loc: VC Attending Dr: Comfort Pretty Ordering Physician: Comfort Prtety Date of Service: 04/24/24 Procedure(s): VC SEGMENTAL PRESSURES Accession Number(s): [id number] cc: Mckayla Blas NP; Comfort Pretty [place] [id number] Patient Name: MITZI MACIAS MRN: [id number] date: 1970 Sex: F Assigned Patient Location: Current Patient Location: Accession/Order Number: [id number] Exam Date: 04/24/2024 10:25 Report Date: 04/24/2024 11:20 At the request of: COMFORT PRETTY Procedure: VC SEGMENTAL PRESSURES EXAM: VC SEGMENTAL PRESSURES HISTORY: R09.89 COMPARISON: None. FINDINGS: Segmental pressures presented as follows (right, left) in mmHg. Brachial: 169, 166 Upper thigh: Not obtained Lower thigh: 129, 119 Calf: 124, 106 DPA: 108, 105 DISPLAY ASSOCIATE: 100, 91 1st Toe: 124, 142 ISABELLE: [...] Signed By: 04/24/24 1123 DD/ 1120 TD/TT: Roaster Supervisor:TBHRadiology, Radiologist, - 04/24/2024 [place] [address] Vein Report Signed Patient: MITZI MACIAS MR#: [id number] : 1970 Acct:[id number] Age/Sex: 53 / F ADM Date: 04/24/24 Loc: VC Attending Dr: Comfort Pretty Ordering Physician: Comfort Pretty Date of Service: 04/24/24 Procedure(s): VC SEGMENTAL PRESSURES Accession Number(s): [id number] cc: Mckayla Blas NP; Comfort Pretty [place] [id number] Patient Name: MITZI MACIAS MRN: [facility]:[id number] date: 1970 Sex: F Assigned Patient Location: Current Patient Location: VC Accession/Order Number: [id number] Exam Date: 04/24/2024 10:25 Report Date: 04/24/2024 11:20 At the request of: COMFORT PRETTY Procedure: VC SEGMENTAL PRESSURES EXAM: VC SEGMENTAL PRESSURES HISTORY: R09.89 COMPARISON: None. FINDINGS: Segmental pressures presented as follows (right, left) in mmHg. Brachial: 169, 166 Upper thigh: Not obtained Lower thigh: 129, 119 Calf: 124, 106 DPA: 108, 105 DISPLAY ASSOCIATE: 100, 91 1st Toe: 124, 142 ISABELLE: [...] Signed By: 04/24/24 1123 DD/ 1120 TD/TT: Roaster Supervisor: CARLOS HealthcareRadiology Study observation (narrative)NOMS HealthcareSEGMENTAL BLOOD PRESSUREOrdered By: Radiologist Radiology on 85-54-3329RSGU [employer] Work Phone: mm TOMOSYNTHESIS SCREENING BIon 10-90-5689SpbDoug[place] [address] Mammography Report Signed Patient: MITZI MACIAS MR#: [id number] : 1970 Acct:[id number] Age/Sex: 53 / F ADM Date: 12/13/23 Loc: MAMMO Attending Dr: Mckayla Blas NP Ordering Physician: Mckayla Blas NP Results: Date of Service: 12/13/23 Follow Up: Procedure(s): MM tomosynthesis screening BI Accession Number(s): [id number] cc: Mckayla Blas NP Patient Name: MITZI MACIAS MR#: [id number] : 1970 Exam Date: 12/13/2023 Ordering Doctor: [...] age 75. LOCATION: [facility] BREAST COMPOSITION: The breasts are almost [...] Signed By: 12/14/23 1122 DD/ 1121 TD/TT: Roaster Supervisor:TBHRadiology, Radiologist, MD - 12/14/2023 [place] [address] Mammography Report Signed Patient: MITZI MACIAS MR#: [id number] : 1970 Acct:[id number] Age/Sex: 53 / F ADM Date: 12/13/23 Loc: MAMMO Attending Dr: Mckayla Blas NP Ordering Physician: Mckayla Blas NP Results: Date of Service: 12/13/23 Follow Up: Procedure(s): MM tomosynthesis screening BI Accession Number(s): [id number] cc: Mckayla Blas NP Patient Name: MITZI MACIAS MR#: [id number] : 1970 Exam Date: 12/13/2023 Ordering Doctor: [...] age 75. LOCATION: [facility] BREAST COMPOSITION: The breasts are almost [...] Signed By: 12/14/23 1122 DD/ 1121 TD/TT: Roaster Supervisor: [facility] ServicesRadiology Study observation (narrative)[facility] TOMOSYNTHESIS SCREENING BIOrdered By: Radiologist Radiology on 76-16-9410IWJASaint Francis Hospital & Health Services Work Phone: bLOOD CULTURE 1on 91-10-5749TQBEE CULTURE 1 Blood Culture 1 NG5D NO GROWTH AT 5 DAYS.^NO GROWTH AT 5 DAYS. [facility] HealthcareBLOOD CULTURE 2on 77-92-0206SFMTP CULTURE 2 Blood Culture 2 NG5D NO GROWTH AT 5 DAYS.^NO GROWTH AT 5 DAYS. [facility] Health ServicesNo Panel Informationon 57-24-2933YETEXJRJDFQCM HealthcareECG 12-LEADon 69-78-0395Qvp [address] [address] Electrocardiograph Report Signed Patient: MITZI MACIAS MR#: [id number] : 1970 Acct:[id number] Age/Sex: 53 / F ADM Date: 08/31/23 Loc: MS 214-[address]: Jacqueline Becerra D.O. Ordering Physician: Andra Alcala Date of Service: 08/31/23 Procedure(s): ECG 12 lead Accession Number(s): [id number] cc: [facility] Test Date: 2023-08-31 Pat Name: MITZI MACIAS Department: Room: - Gender: Female [employer]: : 1970 Requested By: MCKAYLA BLAS Order Number: [id number] Reading MD: LAURI DIOR Measurements Intervals [place] Rate: 102 P: 67 IN: 144 QRS: 52 QRSD: 72 T: 49 QT: 326 QTc: 385 Interpretive Statements 1120 Sinus tachycardia 4068 Nonspecific Twave abnormality 8102 Low QRS voltage in chest leads 9140 abnormal rhythm ECG Compared to ECG 12/04/2022 21:27:48 Electronically Signed On 09-02-2023 7:31:43 EST by LAURI DIOR Dictated By: Lauri Dior D.O. Signed By: 09/02/23 0732 DD/ 1808 TD/TT: Roaster Supervisor:TBHRadiology, Radiologist, - 09/02/2023 [place] [address] Electrocardiograph Report Signed Patient: MITZI MACIAS MR#: [id number] : 1970 Acct:[id number] Age/Sex: 53 / F ADM Date: 08/31/23 Loc: [place] 214-[address]: Jacqueline Becerra D.O. Ordering Physician: Andra Alcala Date of Service: 08/31/23 Procedure(s): ECG 12 lead Accession Number(s): [id number] cc: [facility] Test Date: 2023-08-31 Pat Name: MITZI MACIAS Department: Room: - Gender: Female [employer]: : 1970 Requested By: MCKAYLA BLAS Order Number: [id number] Reading MD: LAURI DIOR Measurements Intervals [place] Rate: 102 P: 67 IN: 144 QRS: 52 QRSD: 72 T: 49 QT: 326 QTc: 385 Interpretive Statements 1120 Sinus tachycardia 4068 Nonspecific Twave abnormality 8102 Low QRS voltage in chest leads 9140 abnormal rhythm ECG Compared to ECG 12/04/2022 21:27:48 Electronically Signed On 09-02-2023 7:31:43 EST by LAURI DIOR Dictated By: Lauri Dior D.O. Signed By: 09/02/23 0732 DD/ 1808 TD/TT: Roaster Supervisor: CARLOS [facility] 12-LEADOrdered By: Radiologist Radiology on [id number] [employer] Work Phone: ECG 12-LEADon [id number] Study observation (narrative)[facility] CENTERHenna [facility] HospitalCBC AUTO DIFFon [id number] #0.0 103/ulNormal 0.0-0.1The [facility] HospitalComment on above:Performed By: #### CBC #### [facility] [address] [place] [address] Dr. Ashlie HillsBasophils/100 WBC (Bld)0.1 %Critically low0.2-2.0The [facility] HospitalComment on above:Performed By: #### CBC #### [facility] [address] [place] [address] Dr. Ashlie Mcintosh #0.0 103/ulNormal0.0-0.7The [facility] HospitalComment on above: Performed By: #### CBC #### [facility] [address] [place] [address] Dr. Ashlie Grahamosinophils/100 WBC (Bld)0.0 %Critically low0.9-7.0The [facility] HospitalComment on above:Performed By: #### CBC #### [facility] [address] [place] [address] Dr. Ashlie Grahamrythrocyte distribution width (RBC) [Ratio]14.9 %Ccglwa80.0-15.0 The [facility] HospitalComment on above:Performed By: #### CBC #### [facility] [address] [place] [address] Dr. Yilan ChangHematocrit (Bld) [Volume fraction]46.2 %Ohsvon27.0-48.0The [facility] HospitalComment on above:Performed By: #### CBC #### [facility] [address] [place] [address] Dr. Ashlie HillsHemoglobin (Bld) [Mass/Vol]14.7 g/vICoblzy34.0-16.0The [facility] HospitalComment on above:Performed By: #### CBC #### [facility] [address] [place] [address] Dr. Ashlie HillsIG #0.06 10e3/ulCritically high0.00-0.03The [facility] Comment on above:Performed By: #### CBC #### [facility] [address] [place] [address] Dr. Ashlie HillsIG %0.4 %Normal0.0-0.5The [facility] HospitalComment on above: Performed By: #### CBC #### [facility] [address] [place] [address] Dr. Ashlie Swenson #1.3 103/ulNormal1.2-3.8The [facility] HospitalComment on above:Performed By: #### CBC #### [facility] [address] [place] [address] Dr. Ashlie Jademphocytes/100 WBC (Bld)9.4 %Critically low20.5-60.0The [facility] HospitalComment on above:Performed By: #### CBC #### [facility] [address] [place] [address] Dr. Ashlie HillsMANUAL DIFF REQNONormalThe [facility] HospitalComment on above: Performed By: #### CBC #### [facility] [address] [place] [address] Dr. Ashlie Granger (RBC) [Entitic mass]28.4 akNmoaxj55.7-34.0The [facility] HospitalComment on above:Performed By: #### CBC #### [facility] [address] [place] [address] Dr. Ashlie Mckeon (RBC) [Mass/Vol]31.8 g/rVIvgnnu15.9-35.2The [facility] HospitalComment on above:Performed By: #### CBC #### [facility] [address] [address] [address] Ashlie MckeonV (RBC) [Entitic vol]89.4 sSZjspgt75.0-99.0The [facility] HospitalComment on above:Performed By: #### CBC #### [facility] [address] [address] [address] Ashlie Killian #0.5 103/ulNormal0.3-0.8The [facility] HospitalComment on above:Performed By: #### CBC #### [facility] [address] [address] [address] Ashlie Palominoocytes/100 WBC (Bld)3.4 %Normal1.7-12.0[facility] Comment on above:Performed By: #### CBC #### [facility] [address] [address] [address] Ashlie Olsen #11.8 103/ulCritically high1.4-6.5The [facility] Comment on above:Performed By: #### CBC #### [facility] [address] [place] [address] Dr. Ashlie Steinutrophils/100 WBC (Bld)86.7 %Critically high43.0-75.0The [facility] HospitalComment on above:Performed By: #### CBC #### [facility] [address] [address] [address] Ashlie Lantigualet mean volume (Bld) [Entitic vol]12.6 fLNormal9.5-13.5The [facility] HospitalComment on above:Performed By: #### CBC #### [facility] [address] [address] [address] Ashlie HillsPLT133 103/ulCritically viv357-758Raa [facility] HospitalComment on above:Performed By: #### CBC #### [facility] [address] [address] [address] Ashlie HillsRBC5.17 106/ulNormal4.20-5.40The [facility] HospitalComment on above:Performed By: #### CBC #### [facility] [address] [place] [address] Dr. Ashlie HillsWBC13.6 103/ulCritically high4.0-11.0The [facility] HospitalComment on above:Performed By: #### CBC #### [facility] [address] [place] [address] Dr. Ashlie HillsMAGNESIUMon 38-69-2628Ueehbdncy [Mass/Vol]2.2 mg/dLNormal1.8-2.4 The [facility] HospitalComstraith hospital for special surgery on above:Performed By: #### INFLUAB #### [facility] [address] [place] [address] Dr. Ashlie HillsPOINT OF CARE GLUCOSEon 31-09-9505Iatimfc [Mass/Vol]340 mg/dL Critically hfmo11-996Axx [facility] HospitalComment on above:Performed By: #### POCGLUC #### [facility] [address] [place] [address] Dr. Ashlie HillsGlucose [Mass/Vol]276 mg/dLCritically qgtl12-149Wmi [facility] HospitalComment on above:Performed By: #### CBC #### [facility] [address] [place] [address] Dr. Ashlie HillsGlucose [Mass/Vol]333 mg/dLCritically awcc71-364Qyh [facility] HospitalComment on above:Performed By: #### CBC #### [facility] [address] [place] [address] Dr. Ashlie HillsPROF CHEM 8 (BAS METB)on 25-81-4595Fbcvi gap [Moles/Vol]10.9 mmol/LNormalLima Memorial HospitalComment on above:Performed By: #### INFLUAB #### [facility] [address] [place] [address] Dr. Ashlie HillsCalcium [Mass/Vol]9.3 mg/dLNormal8.5-10.1[facility] Comment on above:Performed By: #### INFLUAB #### [facility] [address] [address] [address] Ashlie HillsChloride [Moles/Vol]103 mmol/WClqazs55-847Omn [facility] Comment on above:Performed By: #### INFLUAB #### [facility] [address] [address] [address] Ashlie HillsCO2 [Moles/Vol]31.2 mmol/CAmfkiv98.0-32.0[facility] Comment on above:Performed By: #### INFLUAB #### [facility] [address] [place] [address] Dr. Ashlie HillsCreatinine [Mass/Vol]0.96 mg/dLNormal0.55-1.02The [facility] HospitalComment on above:Performed By: #### INFLUAB #### [facility] [address] [place] [address] Dr. Ashlie GrahamGFR-AF PALAUAN>60Normal>=60The [facility] HospitalComment on above:Performed By: #### INFLUAB #### [facility] [address] [place] [address] Dr. Ashlie GrahamGFR-NON AF PALAUAN>60Normal>=60The [facility] HospitalComment on above:Performed By: #### INFLUAB #### [facility] [address] [address] [address] Ashlie HillsGlucose [Mass/Vol]288 mg/dLCritically qvlk36-484Cfr [facility] HospitalComment on above:Performed By: #### INFLUAB #### [facility] [address] [address] [address] Ashlie HillsPotassium [Moles/Vol]5.1 mmol/LNormal3.5-5.1[facility] Comment on above:Performed By: #### INFLUAB #### [facility] [address] [place] [address] Dr. Ashlie HillsSodium [Moles/Vol]140 mmol/AOyjkwd623-191FruLima Memorial Hospital Comment on above:Performed By: #### INFLUAB #### [facility] [address] [place] [address] Dr. Ashlie Jones nitrogen [Mass/Vol]30.0 mg/dLCritically high7.0-18.0The [facility] HospitalComment on above:Performed By: #### INFLUAB #### [facility] [address] [place] [address] Dr. Ashlie Jones nitrogen/Creatinine [Mass ratio]31.2 mg/mgNormalThe [facility] HospitalComment on above:Performed By: #### INFLUAB #### [facility] [address] [place] [address] Dr. Ashlie Chinchilla AUTO DIFFon 18-09-3581MVAN #0.0 103/ulNormal0.0-0.1The [facility] HospitalComment on above:Performed By: #### CBC #### [facility] [address] [place] [address] Dr. Ashlie HillsBasophils/100 WBC (Bld)0.4 %Normal0.2-2.0[facility] Comment on above:Performed By: #### CBC #### [facility] [address] [place] [address] Dr. Ashlie Mcintosh #0.0 103/ulNormal0.0-0.7The [facility] HospitalComment on above: Performed By: #### CBC #### [facility] [address] [place] [address] Dr. Ashlie Grahamosinophils/100 WBC (Bld)0.0 %Critically low0.9-7.0The [facility] HospitalComment on above:Performed By: #### CBC #### [facility] [address] [place] [address] Dr. Ashlie Grahamrythrocyte distribution width (RBC) [Ratio]14.8 %Dyisvn60.0-15.0 The [facility] HospitalComment on above:Performed By: #### CBC #### [facility] [address] [place] [address] Dr. Ashlie HillsHematocrit (Bld) [Volume fraction]49.9 %Critically high36.0-48.0 The [facility] HospitalComment on above:Performed By: #### CBC #### [facility] [address] [place] [address] Dr. Ashlie HillsHemoglobin (Bld) [Mass/Vol]15.7 g/lKPbxcit40.0-16.0The [facility] HospitalComment on above:Performed By: #### CBC #### [facility] [address] [place] [address] Dr. Ashlie Hunter #0.04 10e3/ulCritically high0.00-0.03The [facility] Comment on above:Performed By: #### CBC #### [facility] [address] [place] [address] Dr. Ashlie Hunter %0.5 %Normal0.0-0.5The [facility] HospitalComment on above: Performed By: #### CBC #### [facility] [address] [place] [address] Dr. Ashlie Swenson #1.1 103/ulCritically low1.2-3.8The [facility] Comment on above:Performed By: #### CBC #### [facility] [address] [place] [address] Dr. Ashlie Dsouzahocytes/100 WBC (Bld)12.7 %Critically low20.5-60.0The [facility] HospitalComment on above:Performed By: #### CBC #### [facility] [address] [place] [address] Dr. Ashlie GhoshUAL DIFF REQNONormalThe [facility] HospitalComment on above: Performed By: #### CBC #### [facility] [address] [place] [address] Dr. Ashlie Granger (RBC) [Entitic mass]28.1 ldHurfpm56.7-34.0The [facility] HospitalComment on above:Performed By: #### CBC #### [facility] [address] [place] [address] Dr. Ashlie Mckeon (RBC) [Mass/Vol]31.5 g/uRAtsaal17.9-35.2The [facility] HospitalComment on above:Performed By: #### CBC #### [facility] [address] [address] [address] Ashlie Mckeon (RBC) [Entitic vol]89.3 fQFnobuv02.0-99.0The [facility] HospitalComment on above:Performed By: #### CBC #### [facility] [address] [place] [address] Dr. Ashlie Killian #0.1 103/ulCritically low0.3-0.8The [facility] HospitalComment on above:Performed By: #### CBC #### [facility] [address] [place] [address] Dr. Ashlie Palominoocytes/100 WBC (Bld)1.3 %Critically low1.7-12.0The [facility] HospitalComment on above:Performed By: #### CBC #### [facility] [address] [place] [address] Dr. Ashlie Olsen #7.2 103/ulCritically high1.4-6.5The [facility] Comment on above:Performed By: #### CBC #### [facility] [address] [place] [address] Dr. Ashlie Steinutrophils/100 WBC (Bld)85.1 %Critically high43.0-75.0The [facility] HospitalComment on above:Performed By: #### CBC #### [facility] [address] [place] [address] Dr. Ashlie Lantigualet mean volume (Bld) [Entitic vol]12.2 fLNormal9.5-13.5The [facility] HospitalComment on above:Performed By: #### CBC #### [facility] [address] [place] [address] Dr. Ashlie HillsPLT116 103/ulCritically gas094-848Pqr [facility] HospitalComment on above:Performed By: #### CBC #### [facility] [address] [address] [address] Ashlie HillsRBC5.59 106/ulCritically high4.20-5.40The [facility] Comment on above:Performed By: #### CBC #### [facility] [address] [address] [address] Ashlie HillsWBC8.5 103/ulNormal4.0-11.0The [facility] HospitalComment on above: Performed By: #### CBC #### [facility] [address] [address] [address] Ashlie Harrison CHEST WO W CONon 12-51-3228CVI CHEST WO W CONEXAMINATION: CTA CHEST WO [...] Electronically authenticated by: HATTIE GOFF Date: 2022-12-05 01:[address] [place], [place] [address]ue HospitalMAGNESIUMon 10-43-3824Easfvjbgf [Mass/Vol]2.1 mg/dLNormal 1.8-2.4The [facility] HospitalComment on above:Performed By: #### POCGLUC #### [facility] [address] [address] [address] Ashlie HillsPOINT OF CARE GLUCOSEon 44-10-8110Avkzjwy [Mass/Vol]293 mg/dL Critically xuig72-832WitLima Memorial HospitalComment on above:Performed By: #### POCGLUC #### [facility] [address] [address] [address] Ashlie HillsGlucose [Mass/Vol]269 mg/dLCritically fdeu02-700Jth [facility] HospitalComment on above:Performed By: #### POCGLUC #### [facility] [address] [place] [address] Dr. Ashlie HillsGlucose [Mass/Vol]223 mg/dLCritically likh00-096Oki [facility] HospitalComment on above:Performed By: #### CVDAGS #### [facility] [address] [address] [address] Ashlie HillsPROF CHEM 8 (BAS METB)on 79-67-2178Jsxdv gap [Moles/Vol]11.6 mmol/LNormalLima Memorial HospitalComment on above:Performed By: #### POCGLUC #### [facility] [address] [address] [address] Ashlie HillsCalcium [Mass/Vol]9.2 mg/dLNormal8.5-10.1[facility] Comment on above:Performed By: #### POCGLUC #### [facility] [address] [address] [address] Ashlie HillsChloride [Moles/Vol]102 mmol/WXcelph51-604QtsLima Memorial Hospital Comment on above:Performed By: #### POCGLUC #### [facility] [address] [place] [address] Dr. Ashlie HillsCO2 [Moles/Vol]28.7 mmol/LLludwd61.0-32.0The [facility] Comment on above:Performed By: #### POCGLUC #### [facility] [address] [address] [address] Ashlie HillsCreatinine [Mass/Vol]1.04 mg/dLCritically high0.55-1.02[facility] HospitalComment on above:Performed By: #### POCGLUC #### [facility] [address] [address] [address] Ashlie GrahamGFR-AF PALAUAN>60Normal>=60The [facility] HospitalComment on above:Performed By: #### POCGLUC #### [facility] [address] [address] [address] Ashlie GrahamGFR-NON AF OXEFYUAK27 mL/min/1.56z5Khrepbjeea low>=60The [facility] HospitalComment on above:Performed By: #### POCGLUC #### [facility] [address] [address] [address] Ashlie HillsGlucose [Mass/Vol]231 mg/dLCritically eznv30-421Yzx [facility] HospitalComment on above:Performed By: #### POCGLUC #### [facility] [address] [address] [address] Ashlie HillsPotassium [Moles/Vol]4.3 mmol/LNormal3.5-5.1[facility] Comment on above:Performed By: #### POCGLUC #### [facility] [address] [address] [address] Ashlie HillsSodium [Moles/Vol]138 mmol/MNopusu770-576FyzLima Memorial Hospital Comment on above:Performed By: #### POCGLUC #### [facility] [address] [address] [address] Ashlie HillsUrea nitrogen [Mass/Vol]17.0 mg/dLNormal7.0-18.0The [facility] HospitalComment on above:Performed By: #### POCGLUC #### [facility] [address] [address] [address] Ashlie HillsUrea nitrogen/Creatinine [Mass ratio]16.3 mg/mgNormalThe [facility] HospitalComment on above:Performed By: #### POCGLUC #### [facility] [address] [address] [address] Ashlie HillsRESPIRATORY PANEL PLUSon 55-77-2672RkwpmdpcgmXzu detectedNormal NOT DETECTEDThe [facility] HospitalComment on above:Performed By: #### CVDAGS #### [facility] [address] [address] [address] Ashlie Gandhi ParapertusisNot detectedNormalNOT DETECTEDThe [facility] HospitalComment on above:Performed By: #### CVDAGS #### [facility] [address] [address] [address] Ashlie Gandhi PertussisNot detectedNormalNOT DETECTEDThe [facility] on above:Performed By: #### CVDAGS #### [facility] [address] [address] [address] Ashlie HillsChlamydia PneumoniaeNot detectedNormalNOT DETECTEDThe [facility] HospitalComment on above:Performed By: #### CVDAGS #### [facility] [address] [address] [address] Ashlie HillsCoronavirus 229ENot detectedNormalNOT DETECTEDThe [facility] HospitalComstraith hospital for special surgery on above:Performed By: #### CVDAGS #### [facility] [address] [address] [address] Ashlie HillsCoronavirus VIK4Zyn detectedNormalNOT DETECTEDThe [facility] HospitalComment on above:Performed By: #### CVDAGS #### [facility] [address] [address] [address] Ashlie HillsCoronavirus GO68Bjs detectedNormalNOT DETECTEDThe [facility] HospitalComment on above:Performed By: #### CVDAGS #### [facility] [address] [address] [address] Ashlie HillsCoronavirus BR81Kmv detectedNormalNOT DETECTEDThe [facility] HospitalComment on above:Performed By: #### CVDAGS #### [facility] [address] [address] [address] Ashlie Centeno H1Not detectedNormalNOT DETECTEDThe [facility] Comment on above:Performed By: #### CVDAGS #### [facility] [address] [address] [address] Ashlie Centeno H1 2009Not detectedNormalNOT DETECTEDThe [facility] HospitalComment on above:Performed By: #### CVDAGS #### [facility] [address] [address] [address] Ashlie Centeno H3Not detectedNormalNOT DETECTEDThe [facility] Comment on above:Performed By: #### CVDAGS #### [facility] [address] [address] [address] Ashlie Lockhart BNot detectedNormalNOT DETECTEDLima Memorial Hospital Comment on above:Performed By: #### CVDAGS #### [facility] [address] [address] [address] Ashlie ChávezapneumovirusNot detectedNormalNOT DETECTEDThe [facility] HospitalComment on above:Performed By: #### CVDAGS #### [facility] [address] [address] [address] Ashlie Jimenez[address] PneumoniaeNot detectedNormalNOT DETECTEDThe [facility] HospitalComstraith hospital for special surgery on above:Performed By: #### CVDAGS #### [facility] [address] [address] [address] Ashlie Mendieta 1Not detectedNormalNOT DETECTEDThe [facility] HospitalComment on above:Performed By: #### CVDAGS #### [facility] [address] [address] [address] Ashlie Mendieta 2Not detectedNormalNOT DETECTEDThe [facility] HospitalComstraith hospital [facility] on above:Performed By: #### CVDAGS #### [facility] [address] [address] [address] Ashlie Mendieta 3DetectedAbnormalNOT DETECTEDThe [facility] Comment on above:Performed By: #### CVDAGS #### [facility] [address] [place] [address] Dr. Ashlie Harringtonfluenza 4Not detectedNormalNOT DETECTEDThe [facility] HospitalComment on above:Performed By: #### CVDAGS #### [facility] [address] [place] [address] Dr. Ashlie HillsRhino/EnterovirusNot detectedNormalNOT DETECTEDThe [facility] HospitalComment on above:Performed By: #### CVDAGS #### [facility] [address] [place] [address] Dr. Ashlie Gallagher Header 1RESPIRATORY PANEL: VIRUSESMary [facility] Comment on above:Performed By: #### CVDAGS #### [facility] [address] [place] [address] Dr. Ashlie Gallagher Header 2RESPIRATORY PANEL: BACTERIAMary [facility] HospitalComment on above:Performed By: #### CVDAGS #### [facility] [address] [place] [address] Dr. Ashlie TerryVNot detectedNormalNOT DETECTEDThe [facility] HospitalComstraith [facility] on above:Performed By: #### CVDAGS #### [facility] [address] [place] [address] Dr. Ashlie Finney-CoV-2 (COVID-19) RNA MADDY+probe Ql (Unsp spec)Not detected NormalNOT DETECTEDThe [facility] Hospitalment on above:Performed By: #### CVDAGS #### [facility] [facility] [address] [place] [address] Dr. Ashlie HillsXR CHEST 1 Von [id number] CHEST 1 VEXAMINATION: XR CHEST 1 V HISTORY: Shortness of breath COMPARISON: Chest x-ray 08/09/2021 TECHNIQUE: Portable chest FINDINGS: The lung parenchyma is free of consolidation or infiltrate. No pneumothorax or pleural effusion. The cardiac, mediastinal and hilar contours are normal. The visualized osseous structures exhibit no gross abnormality. IMPRESSION: No acute cardiopulmonary abnormality. Electronically authenticated by: MARYANNE POWER Date: 2022-12-04 22:23NoCleveland Clinic Medina HospitalBLOOD GASES BTYon [id number] [facility] HospitalComment on above:Performed By: #### CBC #### [facility] [address] [address] [address] Ashlie Duran TESTPositiveMary Rutan HospitalComstraith hospital for special [facility] on above: Performed By: #### CBC #### [facility] [address] [address] [address] Ashlie Crenshaw excess Calc (Bld) [Moles/Vol]5.4 mmol/LCritically high -2.0-2.0The [facility] on above:Performed By: #### CBC #### [facility] [address] [address] [address] Ashlie Cevallos [facility] on above: Performed By: #### CBC #### [facility] [address] [address] [address] Ashlie HillsCPUniversity Hospitals [facility] on above:Performed By: #### CBC #### [facility] [address] [address] [address] Ashlie RodKldyqPAC9MgrzwlDmfPremier Health [facility] on above:Performed By: #### CBC #### [facility] [address] [address] [address] Ashlie BahenaO3 (Bld) [Moles/Vol]30.8 mmol/LCritically high22.0-26.0The [facility] on above:Performed By: #### CBC #### [facility] [address] [address] [address] Ashlie HillsLPMNormalLima Memorial HospitalComstraith hospital for special surgery on above:Performed By: #### CBC #### [facility] [address] [address] [address] Ashlie HackettLakeHealth TriPoint Medical CenterComstraith hospital for special surgery on above: Performed By: #### CBC #### [facility] [address] [address] [address] Ashlie HillsOxygen (Bld) [Partial pressure]46.3 mm[Hg]Critically low 80.0-100.0The [facility] HospitalComment on above:Performed By: #### CBC #### [facility] [address] [place] [address] Dr. Ashlie HillsOxygen saturation in Blood83.9 %Critically low95.0-100.0The [facility] on above:Performed By: #### CBC #### [facility] [address] [place] [address] Dr. Ashlie HillsPCO254.2 mmHgCritically high35.0-45.0The [facility] HospitalComstraith hospital for [facility] on above:Performed By: #### CBC #### [facility] [address] [place] [address] Dr. Ashlie HillsSt. Vincent HospitalComstraith hospital for special surgery on above:Performed By: #### CBC #### [facility] [address] [place] [address] Dr. Ashlie Knapp (Bld)7.363 [pH]Normal7.350-7.450The [facility] on above:Performed By: #### CBC #### [facility] [address] [place] [address] Dr. Ashlie VerasDayton Osteopathic Hospital on above:Performed By: #### CBC #### [facility] [address] [place] [address] Dr. Ashlie HillsFulton County Health CenterComstraith hospital for special surgery on above:Performed By: #### CBC #### [facility] [address] [place] [address] Dr. Ashlie Avendano [facility] HospitalComstra[facility] on above: Performed By: #### CBC #### [facility] [address] [place] [address] Dr. Ashlie GoldBrecksville VA / Crille HospitalComstraith hospital [facility] on above:Performed By: #### CBC #### [facility] [address] [place] [address] Dr. Ashlie HillsRegency Hospital Cleveland EastComstraith hospital for special surgery on above:Performed By: #### CBC #### [facility] [address] [place] [address] Dr. Ashlie DoeNormalThe [facility] HospitalComment on above:Performed By: #### CBC #### [facility] [address] [place] [address] Dr. Ashlie Perry [id number] peptide B (Bld) [Mass/Vol]76.0 pg/mL Normal<=900.0The [facility] HospitalComment on above:Performed By: #### POCGLUC #### [facility] [address] [place] [address] Dr. Ashlie Chinchilla AUTO DIFFon [id number] #0.1 103/ulNormal0.0-0.1The [facility] HospitalComment on above:Performed By: #### CBC #### [facility] [address] [place] [address] Dr. Ashlie HillsBasophils/100 WBC (Bld)0.6 %Normal0.2-2.0[facility] Comment on above:Performed By: #### CBC #### [facility] [address] [place] [address] Dr. Ashlie Mcintosh #0.2 103/ulNormal0.0-0.7The [facility] HospitalComstraith hospital for special surgery on above: Performed By: #### CBC #### [facility] [address] [place] [address] Dr. Ashlie Grahamosinophils/100 WBC (Bld)1.9 %Normal0.9-7.0[facility] Comment on above:Performed By: #### CBC #### [facility] [address] [place] [address] Dr. Ashlie Grahamrythrocyte distribution width (RBC) [Ratio]15.0 %Mflrlw85.0-15.0 [facility] HospitalComment on above:Performed By: #### CBC #### [facility] [address] [place] [address] Dr. Ashlie HillsHematocrit (Bld) [Volume fraction]49.1 %Critically high36.0-48.0 The [facility] HospitalComment on above:Performed By: #### CBC #### [facility] [address] [place] [address] Dr. Ashlie HillsHemoglobin (Bld) [Mass/Vol]15.6 g/oSGrdzrr79.0-16.0The [facility] HospitalComment on above:Performed By: #### CBC #### [facility] [address] [place] [address] Dr. Ashlie Hunter #0.02 10e3/ulNormal0.00-0.03The [facility] HospitalComment on above:Performed By: #### CBC #### [facility] [address] [place] [address] Dr. Ashlie Hunter %0.2 %Normal0.0-0.5The [facility] HospitalComment on above: Performed By: #### CBC #### [facility] [address] [place] [address] Dr. Ashlie Swenson #2.8 103/ulNormal1.2-3.8The [facility] HospitalComment on above:Performed By: #### CBC #### [facility] [address] [place] [address] Dr. Ashlie Dsouzahocytes/100 WBC (Bld)29.9 %Flwhjt21.5-60.0The [facility] HospitalComment on above:Performed By: #### CBC #### [facility] [address] [place] [address] Dr. Ashlie GhoshUAL DIFF REQNONormalThe [facility] HospitalComment on above: Performed By: #### CBC #### [facility] [address] [place] [address] Dr. Ashlie Granger (RBC) [Entitic mass]28.5 qxTzsetu54.7-34.0The [facility] HospitalComment on above:Performed By: #### CBC #### [facility] [address] [place] [address] Dr. Ashlie Mckeon (RBC) [Mass/Vol]31.8 g/zJXianri69.9-35.2The [facility] HospitalComment on above:Performed By: #### CBC #### [facility] [address] [place] [address] Dr. Ashlie MckeonV (RBC) [Entitic vol]89.8 fOMxalmj84.0-99.0The [facility] HospitalComment on above:Performed By: #### CBC #### [facility] [address] [place] [address] Dr. Ashlie Killian #1.0 103/ulCritically high0.3-0.8The [facility] Comment on above:Performed By: #### CBC #### [facility] [address] [place] [address] Dr. Ashlie Palominoocytes/100 WBC (Bld)10.6 %Normal1.7-12.0[facility] Comment on above:Performed By: #### CBC #### [facility] [address] [place] [address] Dr. Ashlie Olsen #5.3 103/ulNormal1.4-6.5The [facility] HospitalComment on above:Performed By: #### CBC #### [facility] [address] [place] [address] Dr. Ashlie Steinutrophils/100 WBC (Bld)56.8 %Frxwuv32.0-75.0The [facility] HospitalComment on above:Performed By: #### CBC #### [facility] [address] [place] [address] Dr. Ashlie Lantigualet mean volume (Bld) [Entitic vol]12.5 fLNormal9.5-13.5The [facility] HospitalComment on above:Performed By: #### CBC #### [facility] [address] [place] [address] Dr. Ashlie HillsPLT109 103/ulCritically tnp633-498Htl [facility] HospitalComment on above:Performed By: #### CBC #### [facility] [address] [place] [address] Dr. Ashlie HillsRBC5.47 106/ulCritically high4.20-5.40The [facility] Comment on above:Performed By: #### CBC #### [facility] [address] [place] [address] Dr. Ashlie HillsWBC9.4 103/ulNormal4.0-11.0The [facility] HospitalComment on above: Performed By: #### CBC #### [facility] [address] [place] [address] Dr. Ashlie LlanosF 14(COMP METB)on [id number] [Mass/Vol]2.9 g/dL Critically low3.4-5.0The [facility] HospitalComment on above:Performed By: #### CBC #### [facility] [address] [place] [address] Dr. Ashlie HillsAlbumin/Globulin [Mass ratio]0.6 {ratio}NormalThe [facility] HospitalComment on above:Performed By: #### CBC #### [facility] [address] [place] [address] Dr. Ashlie Gonzalez [Catalytic activity/Vol]64 U/IHhjffn54-734Luj [facility] HospitalComment on above:Performed By: #### CBC #### [facility] [address] [place] [address] Dr. Ashlie Chambers [Catalytic activity/Vol]16 U/SMdogkn11-13Uhq [facility] HospitalComment on above:Performed By: #### CBC #### [facility] [address] [place] [address] Dr. Ashlie Arce gap [Moles/Vol]9.6 mmol/LNormalThe [facility] HospitalComment on above:Performed By: #### CBC #### [facility] [address] [place] [address] Dr. Ashlie Tiwari [Catalytic activity/Vol]16 U/VGaebjk71-31Nvr [facility] HospitalComment on above:Performed By: #### CBC #### [facility] [address] [place] [address] Dr. Ashlie HillsBilirubin [Mass/Vol]0.5 mg/dLNormal0.2-1.0The [facility] Comment on above:Performed By: #### CBC #### [facility] [address] [place] [address] Dr. Ashlie HillsCalcium [Mass/Vol]8.7 mg/dLNormal8.5-10.1[facility] Comment on above:Performed By: #### CBC #### [facility] [address] [place] [address] Dr. Ashlie HillsChloride [Moles/Vol]103 mmol/SJllnox64-546Dzj [facility] Comment on above:Performed By: #### CBC #### [facility] [address] [place] [address] Dr. Ashlie HillsCO2 [Moles/Vol]30.7 mmol/XRhoatt07.0-32.0[facility] Comment on above:Performed By: #### CBC #### [facility] [address] [place] [address] Dr. Ashlie HillsCreatinine [Mass/Vol]0.96 mg/dLNormal0.55-1.02The [facility] HospitalComment on above:Performed By: #### CBC #### [facility] [address] [place] [address] Dr. Ashlie GrahamGFR-AF PALAUAN>60Normal>=60The [facility] HospitalComment on above:Performed By: #### CBC #### [facility] [address] [place] [address] Dr. Ashlie Delaney-NON AF PALAUAN>60Normal>=60The [facility] HospitalComment on above:Performed By: #### CBC #### [facility] [address] [place] [address] Dr. Ashlie HillsGlobulin (S) [Mass/Vol]4.7 g/dLNormalThe [facility] HospitalComment on above:Performed By: #### CBC #### [facility] [address] [place] [address] Dr. Ashlie HillsGlucose [Mass/Vol]170 mg/dLCritically xmln58-665Mxc [facility] HospitalComment on above:Performed By: #### CBC #### [facility] [address] [address] [address] Ashlie HillsPotassium [Moles/Vol]4.3 mmol/LNormal3.5-5.1The [facility] Comment on above:Performed By: #### CBC #### [facility] [address] [address] [address] Ashlie HillsProtein [Mass/Vol]7.6 g/dLNormal6.4-8.2[facility] Comment on above:Performed By: #### CBC #### [facility] [address] [address] [address] Ashlie HillsSodium [Moles/Vol]139 mmol/DCfjocn916-678Gbj [facility] Comment on above:Performed By: #### CBC #### [facility] [address] [address] [address] Ashlie HillsUrea nitrogen [Mass/Vol]16.0 mg/dLNormal7.0-18.0The [facility] HospitalComment on above:Performed By: #### CBC #### [facility] [address] [address] [address] Ashlie Jones nitrogen/Creatinine [Mass ratio]16.7 mg/mgNormalThe [facility] HospitalComment on above:Performed By: #### CBC #### [facility] [address] [address] [address] Ashlie KirbyMPTOMATIC COVID-19 ANTIGENon [id number] StatementSEE BELOW NormalThe [facility] HospitalComment on above:Result Comment: This test has not [...] is revoked sooner.Performed By: #### CVDAGS #### [facility] [address] [place] [address] Dr. Ashlie Finney-CoV-2 (COVID-19) RNA MADDY+probe Ql (Unsp spec)NegativeNormal NEGATIVEThe [facility] HospitalComment on above:Performed By: #### CVDAGS #### [facility] [address] [place] [address] Dr. Ashlie Alvarado, [facility] SENSITIVITYon [id number] pg/mLNormal 4.0-51.3The [facility] HospitalComment on above:Result Comment: CUT-OFF POINTS HAVE BEEN ESTABLISHED BASED ON THE FOURTH UNIVERSAL DEFINITIONS OF MYOCARDIAL INFARCTION. THE UPPER REFERENCE LIMIT (URL) OF TROPONIN, DEFINED THE 99TH PERCENTILE OF cTnI DISTRIBUTION IN A REFERENCE POPULATION, HAS BEEN CONFIRMED THE DECISION THRESHOLD FOR PR DIAGNOSIS.Performed By: #### POCGLUC #### [facility] [address] [place] [address] Dr. Ashlie MarshallALBUMIN, RAND URon [id number] mg/dLCritically high <=30.0The [facility] HospitalComment on above:Performed By: #### CVDAGS #### [facility] [address] [place] [address] Dr. Ashlie Vaughn RANDOM W/MICROSCOPICon [id number] SEENNormalNONE SEENLima Memorial HospitalComment on above:Performed By: #### CVDAGS #### [facility] [address] [place] [address] Dr. Ashlie HillsBilirubin Ql (U)NegativeNormalNEGATIVEThe [facility] Comment on above:Performed By: #### CVDAGS #### [facility] [address] [place] [address] Dr. Ashlie SchultzSEENAbnormalNONE SEENThe [facility] HospitalComment on above: Performed By: #### CVDAGS #### [facility] [address] [address] [address] Ashlie HillsClarity (U)CLEARNormalCLEARLima Memorial HospitalComstraith hospital for special surgery on above: Performed By: #### CVDAGS #### [facility] [address] [address] [address] Ashlie Roberts (U)YELLOWNormalYELLOWLima Memorial HospitalComment on above: Performed By: #### CVDAGS #### [facility] [address] [address] [address] Ashlie HillsCrystals LM Nom (Urine sed)NONE SEENNormalNONE SEENLima Memorial HospitalComstraith hospital for special surgery on above:Performed By: #### CVDAGS #### [facility] [address] [place] [address] Dr. Dailey ChangEpithelial cells LM Ql (Urine sed)MODERATEAbnormalNONE SEEN /RARE The [facility] HospitalComstra[facility] on above:Performed By: #### CVDAGS #### [facility] [address] [place] [address] Dr. Ashlie HillsGlucose Ql (U)NegativeNormalNEGATIVELima Memorial HospitalComstraith hospital for special surgery on above:Performed By: #### CVDAGS #### [facility] [address] [place] [address] Dr. Ashlie HillsHemoglobin Ql (U)TRACE-INTACTAbnormalNEGATIVELima Memorial HospitalComstraith hospital for special surgery on above:Performed By: #### CVDAGS #### [facility] [address] [place] [address] Dr. Ashlie HillsKetones Ql (U)NegativeNormalNEGATIVELima Memorial HospitalComstraith hospital for special surgery on above:Performed By: #### CVDAGS #### [facility] [address] [place] [address] Dr. Ashlie HillsLEUKOCYTESNegativeNormalNEGATIVELima Memorial HospitalComstraith hospital for special surgery on above:Performed By: #### CVDAGS #### [facility] [address] [place] [address] Dr. Ashlie McphersonUSRODRIGUEZE SEENNormalNONE SEENLima Memorial HospitalComment on above:Performed By: #### CVDAGS #### [facility] [address] [place] [address] Dr. Ashlie Soares Ql (U)NegativeNormalNEGATIVEThe [facility] HospitalComment on above:Performed By: #### CVDAGS #### [facility] [address] [place] [address] Dr. Ashlie HillspH (U)5.0 [pH]Normal5-9The [facility] HospitalComment on above: Performed By: #### CVDAGS #### [facility] [address] [place] [address] Dr. Ashlie PruettCtamqFYL3-4Kfylyh2-3Ggy [facility] HospitalComment on above:Performed By: #### CVDAGS #### [facility] [address] [place] [address] Dr. Ashlie HillsSPEC GRAVITY1.347Ztdctmlr7.005-<=1.025The [facility] Comment on above:Performed By: #### CVDAGS #### [facility] [address] [place] [address] Dr. Ashlie Vaughn IMHKFSG080 mg/dlAbnormalNEGATIVE/ TRACEThe [facility] Comment on above:Performed By: #### CVDAGS #### [facility] [address] [place] [address] Dr. Ashlie Metzbilkrystynagen Qn (U)0.2 {Little'U}/dLNormal0.2 - 1.0The [facility] HospitalComment on above:Performed By: #### CVDAGS #### [facility] [address] [place] [address] Dr. Ashlie HillsWBCNONE SEENNormalNONE SEENLima Memorial HospitalComment on above: Performed By: #### CVDAGS #### [facility] [address] [place] [address] Dr. Ashlie Chinchilla AUTO DIFFon [id number] #0.0 103/ulNormal0.0-0.1The [facility] HospitalComment on above:Performed By: #### CBC #### [facility] [address] [place] [address] Dr. Ashlie HillsBasophils/100 WBC (Bld)0.3 %Normal0.2-2.0[facility] Comment on above:Performed By: #### CBC #### [facility] [address] [place] [address] Dr. Ashlie Mcintosh #0.4 103/ulNormal0.0-0.7The [facility] HospitalComment on above: Performed By: #### CBC #### [facility] [address] [place] [address] Dr. Ashlie Grahamosinophils/100 WBC (Bld)3.0 %Normal0.9-7.0[facility] Comment on above:Performed By: #### CBC #### [facility] [address] [place] [address] Dr. Ashlie Grahamrythrocyte distribution width (RBC) [Ratio]15.3 %Critically high 11.0-15.0[facility] HospitalComment on above:Performed By: #### CBC #### [facility] [address] [place] [address] Dr. Ashlie HillsHematocrit (Bld) [Volume fraction]52.4 %Critically high36.0-48.0 The [facility] HospitalComment on above:Performed By: #### CBC #### [facility] [address] [place] [address] Dr. Ashlie HillsHemoglobin (Bld) [Mass/Vol]16.8 g/dLCritically high12.0-16.0[facility] HospitalComment on above:Performed By: #### CBC #### [facility] [address] [place] [address] Dr. Ashlie Hunter #0.04 10e3/ulCritically high0.00-0.03The [facility] Comment on above:Performed By: #### CBC #### [facility] [address] [place] [address] Dr. Ashlie Hunter %0.3 %Normal0.0-0.5The [facility] HospitalComment on above: Performed By: #### CBC #### [facility] [address] [place] [address] Dr. Ashlie Swenson #4.5 103/ulCritically high1.2-3.8The [facility] Comment on above:Performed By: #### CBC #### [facility] [address] [place] [address] Dr. Ashlie Dsouzahocytes/100 WBC (Bld)33.2 %Tjmdnc92.5-60.0The [facility] HospitalComment on above:Performed By: #### CBC #### [facility] [address] [place] [address] Dr. Ashlie GhoshUAL DIFF REQNONormalThe [facility] HospitalComment on above: Performed By: #### CBC #### [facility] [address] [place] [address] Dr. Ashlie Granger (RBC) [Entitic mass]28.0 deVapoub39.7-34.0The [facility] HospitalComment on above:Performed By: #### CBC #### [facility] [address] [place] [address] Dr. Ashlie Mckeon (RBC) [Mass/Vol]32.1 g/qMAowlrs73.9-35.2The [facility] HospitalComment on above:Performed By: #### CBC #### [facility] [address] [place] [address] Dr. Ashlie Mckeon (RBC) [Entitic vol]87.3 uWNzfwdu45.0-99.0The [facility] HospitalComment on above:Performed By: #### CBC #### [facility] [address] [place] [address] Dr. Ashlie Killian #0.8 103/ulNormal0.3-0.8The [facility] HospitalComment on above:Performed By: #### CBC #### [facility] [address] [place] [address] Dr. Ashlie Palominoocytes/100 WBC (Bld)5.7 %Normal1.7-12.0[facility] Comment on above:Performed By: #### CBC #### [facility] [address] [place] [address] Dr. Ashlie Olsen #7.8 103/ulCritically high1.4-6.5ThAdams County Regional Medical Center Comment on above:Performed By: #### CBC #### [facility] [address] [address] [address] Ashlie Steinutrophils/100 WBC (Bld)57.5 %Dlkrnz20.0-75.0The [facility] HospitalComment on above:Performed By: #### CBC #### [facility] [address] [place] [address] Dr. Ashlie HillsPlatelet mean volume (Bld) [Entitic vol]12.0 fLNormal9.5-13.5The [facility] HospitalComment on above:Performed By: #### CBC #### [facility] [address] [place] [address] Dr. Ashlie HillsPLT152 103/epVwjpdb591-584GcrLima Memorial HospitalComment on above: Performed By: #### CBC #### [facility] [address] [place] [address] Dr. Ashlie HillsRBC6.00 106/ulCritically high4.20-5.40[facility] Comment on above:Performed By: #### CBC #### [facility] [address] [place] [address] Dr. Ashlie HillsWBC13.6 103/ulCritically high4.0-11.0[facility] HospitalComment on above:Performed By: #### CBC #### [facility] [address] [place] [address] Dr. Ashlie HillsLIPID PROFILEon [id number]-HDL RATIO NORMSEE BELOWNoCleveland Clinic Medina HospitalComment on above:Result Comment: 3.3 - 4.4 LOW RISK 4.4 - 7.1 AVERAGE RISK 7.1 - 11.0 MODERATE RISK >11.0 HIGH RISKPerformed By: #### CBC #### [facility] [address] [address] [address] Ashlie HillsCholesterol [Mass/Vol]139 mg/dLNormal<=200[facility] Comment on above:Performed By: #### CBC #### [facility] [address] [address] [address] Ashlie HillsCholesterol in HDL [Mass/Vol]35 mg/dLCritically csa83-46BvyLima Memorial HospitalComment on above:Performed By: #### CBC #### [facility] [address] [address] [address] Ashlie HillsCholesterol in LDL [Mass/Vol]67.4 mg/dLMary Rutan HospitalComment on above:Performed By: #### CBC #### [facility] [address] [place] [address] Dr. Ashlie Lopezesteroralia.total/Cholesterol in HDL [Mass ratio]4.0 {ratio} NormalLima Memorial HospitalComment on above:Performed By: #### CBC #### [facility] [address] [address] [address] Ashlie Potts NORMAL> or = 60 mg/dl - LOW CARDIOVASCULAR RISK <40 mg/dl - HIGH CARDIOVASCULAR RISKMary Rutan HospitalComment on above:Performed By: #### CBC #### [facility] [address] [address] [address] Ashlie HillsLDL CALC NORMALSEE BELOWMary Rutan HospitalComment on above:Result Comment: <100 mg/dl OPTIMAL 100 - 129 mg/dl NEAR OR ABOVE OPTIMAL 130 - 159 mg/dl BORDERLINE HIGH 160 - 189 mg/dl HIGH >190 mg/dl VERY HIGH Performed By: #### CBC #### [facility] [address] [place] [address] Dr. Ashlie HillsTriglyceride [Mass/Vol]183 mg/dLCritically high<=150The [facility] HospitalComment on above:Performed By: #### CBC #### [facility] [address] [address] [address] Ashlie HillsVLDL CALC36.6 mg/dLNoCleveland Clinic Medina HospitalComment on above: Performed By: #### CBC #### [facility] [address] [address] [address] Ashlie HillsMG MAMM SCREEN 3D ALEX CADon [id number] MAMM SCREEN 3D ALEX CAD Patient: MITZI MACIAS Exam Date: 11/22/2022 : 1970 Gender:F Ordering : SAYDA MCKAYLA W[employer]PER[employer] Admission #: [id number] Family : Order #: [id number] CLICK HERE TO VIEW EXAM RADIOLOGY REPORT [...] age 75. LOCATION: The [facility] BREAST COMPOSITION: Almost entirely fatty. FINDINGS: [...] by: Patricia Veloz M.D. on 11/22/2022 at 12:09NoCleveland Clinic Medina HospitalPROF 14(COMP METB)on [id number] [Mass/Vol]3.0 g/dLCritically low 3.4-5.0The [facility] HospitalComment on above:Performed By: #### CBC #### [facility] [address] [address] [address] Ashlie HillsAlbumin/Globulin [Mass ratio]0.6 {ratio}NormalThe [facility] HospitalComment on above:Performed By: #### CBC #### [facility] [address] [address] [address] Ashlie MoralesP [Catalytic activity/Vol]68 U/ITwltld25-353Zvc [facility] HospitalComment on above:Performed By: #### CBC #### [facility] [address] [address] [address] Ashlie MoralesT [Catalytic activity/Vol]14 U/SZefiqo38-40Gdk [facility] HospitalComment on above:Performed By: #### CBC #### [facility] [address] [place] [address] Dr. Ashlie Hassanon gap [Moles/Vol]12.1 mmol/LNormalThe [facility] Comment on above:Performed By: #### CBC #### [facility] [address] [place] [address] Dr. Ashlie HillsAST [Catalytic activity/Vol]9 U/LCritically zal10-47Vfe [facility] HospitalComment on above:Performed By: #### CBC #### [facility] [address] [place] [address] Dr. Ashlie HillsBilirubin [Mass/Vol]0.4 mg/dLNormal0.2-1.0The [facility] Comment on above:Performed By: #### CBC #### [facility] [address] [place] [address] Dr. Ashlie HillsCalcium [Mass/Vol]9.0 mg/dLNormal8.5-10.1The [facility] Comment on above:Performed By: #### CBC #### [facility] [address] [place] [address] Dr. Ashlie HillsChloride [Moles/Vol]105 mmol/EYqkqjh87-763Zqn [facility] Comment on above:Performed By: #### CBC #### [facility] [address] [address] [address] Ashlie HillsCO2 [Moles/Vol]30.7 mmol/ASvxqno81.0-32.0The [facility] Comment on above:Performed By: #### CBC #### [facility] [address] [place] [address] Dr. Ashlie iHllsCreatinine [Mass/Vol]0.77 mg/dLNormal0.55-1.02The [facility] HospitalComment on above:Performed By: #### CBC #### [facility] [address] [place] [address] Dr. Dailey ChangEGFR-AF PALAUAN>60Normal>=60The [facility] HospitalComment on above:Performed By: #### CBC #### [facility] [address] [place] [address] Dr. Ashlie GrahamGFR-NON AF PALAUAN>60Normal>=60The [facility] HospitalComment on above:Performed By: #### CBC #### [facility] [address] [place] [address] Dr. Ashlie HillsGlobulin (S) [Mass/Vol]4.8 g/dLNormalThe [facility] HospitalComment on above:Performed By: #### CBC #### [facility] [address] [place] [address] Dr. Ashlie HillsGlucose [Mass/Vol]162 mg/dLCritically qcws20-503Rvu [facility] HospitalComment on above:Performed By: #### CBC #### [facility] [address] [place] [address] Dr. Ashlie HillsPotassium [Moles/Vol]3.8 mmol/LNormal3.5-5.1The [facility] Comment on above:Performed By: #### CBC #### [facility] [address] [place] [address] Dr. Ashlie HillsProtein [Mass/Vol]7.8 g/dLNormal6.4-8.2The [facility] Comment on above:Performed By: #### CBC #### [facility] [address] [place] [address] Dr. Ashlie Jimenezdium [Moles/Vol]144 mmol/DJckjum845-146Eyr [facility] Comment on above:Performed By: #### CBC #### [facility] [address] [place] [address] Dr. Ashlie Jones nitrogen [Mass/Vol]24.0 mg/dLCritically high7.0-18.0The [facility] HospitalComment on above:Performed By: #### CBC #### [facility] [address] [place] [address] Dr. Ashlie Jones nitrogen/Creatinine [Mass ratio]31.2 mg/mgNormalThe [facility] HospitalComment on above:Performed By: #### CBC #### [facility] [address] [place] [address] Dr. Ashlie Chinchilla AUTO DIFFon [id number] #0.1 103/ulNormal0.0-0.1The [facility] HospitalComment on above:Performed By: #### CBC #### [facility] [address] [place] [address] Dr. Ashlie HillsBasophils/100 WBC (Bld)0.6 %Normal0.2-2.0[facility] Comment on above:Performed By: #### CBC #### [facility] [address] [place] [address] Dr. Ashlie Mcintosh #0.3 103/ulNormal0.0-0.7The [facility] HospitalComment on above: Performed By: #### CBC #### [facility] [address] [place] [address] Dr. Ashlie Grahamosinophils/100 WBC (Bld)2.1 %Normal0.9-7.0The [facility] Comment on above:Performed By: #### CBC #### [facility] [address] [place] [address] Dr. Ashlie Grahamrythrocyte distribution width (RBC) [Ratio]15.9 %Critically high 11.0-15.0The [facility] HospitalComment on above:Performed By: #### CBC #### [facility] [address] [address] [address] Ashlie HillsHematocrit (Bld) [Volume fraction]51.8 %Critically high36.0-48.0 The [facility] HospitalComment on above:Performed By: #### CBC #### [facility] [address] [place] [address] Dr. Ashlie HillsHemoglobin (Bld) [Mass/Vol]16.6 g/dLCritically high12.0-16.0The [facility] HospitalComment on above:Performed By: #### CBC #### [facility] [address] [place] [address] Dr. Ashlie HillsIG #0.03 10e3/ulNormal0.00-0.03The [facility] HospitalComment on above:Performed By: #### CBC #### [facility] [address] [place] [address] Dr. Ashlie Hunter %0.2 %Normal0.0-0.5The [facility] HospitalComment on above: Performed By: #### CBC #### [facility] [address] [place] [address] Dr. Ashlie Swenson #3.9 103/ulCritically high1.2-3.8The [facility] Comment on above:Performed By: #### CBC #### [facility] [address] [place] [address] Dr. Ashlie Jademphocytes/100 WBC (Bld)31.7 %Giazrk26.5-60.0The [facility] HospitalComment on above:Performed By: #### CBC #### [facility] [address] [place] [address] Dr. Ashlie GhoshUAL DIFF REQNONormalThe [facility] HospitalComment on above: Performed By: #### CBC #### [facility] [address] [place] [address] Dr. Ashlie Granger (RBC) [Entitic mass]27.9 khLcywfa00.7-34.0The [facility] HospitalComment on above:Performed By: #### CBC #### [facility] [address] [address] [address] Ashlie Mckeon (RBC) [Mass/Vol]32.0 g/rZKhbdvl45.9-35.2The [facility] HospitalComment on above:Performed By: #### CBC #### [facility] [address] [place] [address] Dr. Ashlie MckeonV (RBC) [Entitic vol]87.1 rJDawtmi95.0-99.0The [facility] HospitalComment on above:Performed By: #### CBC #### [facility] [address] [place] [address] Dr. Ashlie Killian #0.7 103/ulNormal0.3-0.8The [facility] HospitalComment on above:Performed By: #### CBC #### [facility] [address] [place] [address] Dr. Ashlie Palominoocytes/100 WBC (Bld)5.8 %Normal1.7-12.0[facility] Comment on above:Performed By: #### CBC #### [facility] [address] [place] [address] Dr. Ashlie Olsen #7.3 103/ulCritically high1.4-6.5The [facility] Comment on above:Performed By: #### CBC #### [facility] [address] [place] [address] Dr. Ashlie Steinutrophils/100 WBC (Bld)59.6 %Rbcapw69.0-75.0The [facility] HospitalComment on above:Performed By: #### CBC #### [facility] [address] [place] [address] Dr. Ashlie Lantigualet mean volume (Bld) [Entitic vol]11.7 fLNormal9.5-13.5The [facility] HospitalComment on above:Performed By: #### CBC #### [facility] [address] [place] [address] Dr. Ashlie HillsPLT117 103/ulCritically zlp800-905Gda [facility] HospitalComment on above:Performed By: #### CBC #### [facility] [address], [place] [address] Dr. Ashlie HillsRBC5.95 106/ulCritically high4.20-5.40The [facility] Comment on above:Performed By: #### CBC #### [facility] [address], [place] [address] Dr. Ashlie HillsWBC12.3 103/ulCritically high4.0-11.0The [facility] HospitalComment on above:Performed By: #### CBC #### [facility] [address] [place], [place] [address] Dr. Ashlie HillsCT ABD/PELV W CONon [id number] ABD/PELV W CONEXAM: CT ABD/PELV W CON [...] Electronically authenticated by: RICCO PICKARD Date: 2022-10-05 13:13NoAv[facility] System URINE PROFILEon [id number] Ql (U)NegativeNormal NEGATIVEThe [facility] HospitalComment on above:Performed By: #### POCGLUC #### [facility] [address] [address] [address] Ashlie Leungarity (U)CLEARNormalCLEARLima Memorial HospitalComment on above: Performed By: #### POCGLUC #### [facility] [address] [address] [address] Ashlie Prescottlor (U)YELLOWNormalYELLOWLima Memorial HospitalComment on above: Performed By: #### POCGLUC #### [facility] [address] [address] [address] Ashlie Clayton micrscopic examination will be performed if indicated. NormalThe [facility] HospitalComment on above:Performed By: #### POCGLUC #### [facility] [address] [address] [address] Ashlie Rutledgeose Ql (U)NegativeNormalNEGATIVELima Memorial HospitalComment on above:Performed By: #### POCGLUC #### [facility] [address] [address] [address] Ashlie HillsHemoglobin Ql (U)NegativeNormalNEGATIVEAkron Children'[facility] on above:Performed By: #### POCGLUC #### [facility] [address] [address] [address] Ashlie HillsKetones Ql (U)NegativeNormalNEGATIVELima Memorial HospitalComment on above:Performed By: #### POCGLUC #### [facility] [address] [address] [address] Ashlie HillsLEUKOCYTESNegativeNormalNEGATIVELima Memorial HospitalComment on above:Performed By: #### POCGLUC #### [facility] [address] [address] [address] Ashlie HillsNitrite Ql (U)NegativeNormalNEGATIVELima Memorial HospitalComment on above:Performed By: #### POCGLUC #### [facility] [address] [address] [address] Ashlie HillspH (U)6.0 [pH]Normal5-9[facility] HospitalComment on above: Performed By: #### POCGLUC #### [facility] [address] [address] [address] Ashlie HillsProtein (U) [Mass/Vol]100 mg/dLAbnormalNEGATIVE/ TRACEThe [facility] HospitalComment on above:Performed By: #### POCGLUC #### [facility] [address] [place] [address] Dr. Ashlie HillsSPEC GRAVITY1.474Toicfi7.005-<=1.025The [facility] HospitalComment on above:Performed By: #### POCGLUC #### [facility] [address] [place] [address] Dr. Ashlie Sullivan MICRO INDINDICATEDNormalThAdams County Regional Medical CenterComment on above: Performed By: #### POCGLUC #### [facility] [address] [place] [address] Dr. Ashlie HillsUrobilinogen Qn (U)1.0 {Little'U}/dLNormal0.2 - 1.0The [facility] HospitalComment on above:Performed By: #### POCGLUC #### [facility] [address] [place] [address] Dr. Ashlie HillsLIPASEon [id number] [Catalytic activity/Vol]1771.0 U/L Critically high73.0-393.0The [facility] HospitalComment on above:Performed By: #### CBC #### [facility] [address] [place] [address] Dr. Ashlie CrossG HCG QUALon [id number], QUALNegativeNormalNEGATIVE The [facility] HospitalComment on above:Performed By: #### POCGLUC #### [facility] [address] [place] [address] Dr. Ashlie HillsPROF 14(COMP METB)on [id number] [Mass/Vol]3.2 g/dL Critically low3.4-5.0The [facility] HospitalComment on above:Performed By: #### CBC #### [facility] [address] [place] [address] Dr. Ashlie HillsAlbumin/Globulin [Mass ratio]0.7 {ratio}NormalLima Memorial HospitalComment on above:Performed By: #### CBC #### [facility] [address] [address] [address] Ashlie Gonazlez [Catalytic activity/Vol]70 U/YNngvtf86-325Sbc [facility] HospitalComment on above:Performed By: #### CBC #### [facility] [address] [address] [address] Ash[address] Chambers [Catalytic activity/Vol]11 U/LCritically rzs32-84Mlz [facility] HospitalComment on above:Performed By: #### CBC #### [facility] [address] [address] [address] Ashlie Hassanon gap [Moles/Vol]10.3 mmol/LNormalL[facility] Comment on above:Performed By: #### CBC #### [facility] [address] [address] [address] Ashlie HillsAST [Catalytic activity/Vol]11 U/LCritically avl65-10Xxp [facility] HospitalComment on above:Performed By: #### CBC #### [facility] [address] [address] [address] Ashlie HillsBilirubin [Mass/Vol]0.9 mg/dLNormal0.2-1.0The [facility] Comment on above:Performed By: #### CBC #### [facility] [address] [address] [address] Ashlie HillsCalcium [Mass/Vol]9.3 mg/dLNormal8.5-10.1[facility] Comment on above:Performed By: #### CBC #### [facility] [address] [address] [address] Ashlie HillsChloride [Moles/Vol]105 mmol/TDtyegi57-287Ohj [facility] Comment on above:Performed By: #### CBC #### [facility] [address] [address] [address] Ashlie HillsCO2 [Moles/Vol]30.6 mmol/WOhjmcx49.0-32.0The [facility] Comment on above:Performed By: #### CBC #### [facility] [address] [address] [address] Ashlie HillsCreatinine [Mass/Vol]0.62 mg/dLNormal0.55-1.02The [facility] HospitalComment on above:Performed By: #### CBC #### [facility] [address] [address] [address] Ashlie GrahamGFR-AF PALAUAN>60Normal>=60The [facility] HospitalComment on above:Performed By: #### CBC #### [facility] [address] [address] [address] Ashlie GrahamGFR-NON AF PALAUAN>60Normal>=60The [facility] HospitalComment on above:Performed By: #### CBC #### [facility] [address] [address] [address] Ashlie HillsGlobulin (S) [Mass/Vol]4.6 g/dLNormalThe [facility] HospitalComment on above:Performed By: #### CBC #### [facility] [address] [address] [address] Ashlie HillsGlucose [Mass/Vol]85 mg/zEUjeblt22-341BbzL[facility] Hospital Comment on above:Performed By: #### CBC #### [facility] [address] [address] [address] Ashlie HillsPotassium [Moles/Vol]3.9 mmol/LNormal3.5-5.1The [facility] Comment on above:Performed By: #### CBC #### [facility] [address] [address] [address] Ashlie HillsProtein [Mass/Vol]7.8 g/dLNormal6.4-8.2The [facility] Comment on above:Performed By: #### CBC #### [facility] [address] [address] [address] Ashlie HillsSodium [Moles/Vol]142 mmol/LAzvokq757-460MotLima [facility] Hospital Comment on above:Performed By: #### CBC #### [facility] [address] [address] [address] Ashlie Jones nitrogen [Mass/Vol]12.0 mg/dLNormal7.0-18.0The [facility] on above:Performed By: #### CBC #### [facility] [address] [address] [address] Ashlie Jones nitrogen/Creatinine [Mass ratio]19.4 mg/mgNoCleveland Clinic Medina HospitalComment on above:Performed By: #### CBC #### [facility] [address] [address] [address] Ashlie Recinos MICROSCOPIC ONLYon [id number]K SEEN [facility] HospitalComstraith hospital for special surgery on above:Performed By: #### POCGLUC #### [facility] [address] [address] [address] Ashlie Cortez identified Cx Nom (U)NOT INDICATEDNoAdena Regional Medical Center on above:Performed By: #### POCGLUC #### [facility] [address] [address] [address] Ashlie HillsCASTNONE SEENNormalNONE SEENSalem Regional Medical Center on above:Performed By: #### POCGLUC #### [facility] [address] [address] [address] Ashlie Boyerystals LM Nom (Urine sed)NONE SEENNormalNONE SEENSalem Regional Medical Center on above:Performed By: #### POCGLUC #### [facility] [address] [address] [address] Ashlie Camarathelial cells LM Ql (Urine sed)MODERATEAbnormalNONE SEEN /RARE The [facility] on above:Performed By: #### POCGLUC #### [facility] [address] [address] [address] Ashlie SuarezCOUSNONE SEENNoatrium health stanlyNONE SEENSalem Regional Medical Center on above:Performed By: #### POCGLUC #### [facility] [address] [address] [address] Ashlie HillsGlwloSSK8-6Wfriwe7-4YrqSalem Regional Medical Center on above:Performed By: #### POCGLUC #### [facility] [address] [place] [address] Dr. Ashlie HillsWBC0-2AbnormalNONE SEENSalem Regional Medical Center on above: Performed By: #### POCGLUC #### [facility] [address] [place] [address] Dr. Ashlie HillsCovid-19 PCR (CVDNEW [facility])on [id number]-CoV-2 (COVID-19) RNA MADDY+probe Ql (Unsp spec)DetectedAbnormalNOT DETECTEDThe [facility] on above:Result Comment: This test is not yet approved or cleared by the [place] FDA. When there are no FDA-approved or cleared tests available, and other criteria are met, FDA can make tests available under an emergency access mechanism called an Emergency Use Authorization (EUA). The EUA for this test is supported by the [place] of Health and Human Service's declaration that [...] longer be used).Performed By: #### CVDAGS #### [facility] [address] [place] [address] Dr. Ashlie HillsINFLUENZA A AND B AGon [id number] [facility] on above:Result Comment: Negative for Flu A protein angiten. Infection due to Flu A cannot be ruled out. FluA angiten in the sample may be below the detection limit of the test.Performed By: #### INFLUAB #### [facility] [address] [place] [address] Dr. Ashlie HillsINFLUBNEGHSEE [facility] on above: Result Comment: Negative for Flu B protein antigen. Infection due to Flu B cannot be ruled out. FluB antigen in the sample may be below the detection limit of the test.Performed By: #### INFLUAB #### [facility] [address] [place] [address] Dr. Ashlie Centeno AGNegativeNormalNEGATIVE SEE COMMENTThe [facility] HospitalComment on above:Performed By: #### INFLUAB #### [facility] [address] [address] [address] Ashlie Shaffer AGNegativeNormalNEGATIVE SEE COMMENTThe [facility] HospitalComment on above:Performed By: #### INFLUAB #### [facility] [address] [place] [address] Dr. Ashlie HillsCT ABD/PELV W CONon [id number] ABD/PELV W CONINDICATION: Disorder of adrenal gland [...] dating back to at least 10/21/2018, unchanged. https://www.ncbi.nlm.nih.gov/pmc/articles/ISM9145676/ Electronically authenticated by: COLLIN HUERTAS Date: 2022-07-27 14:56NormSelect Medical [facility]Health Rehabilitation HospitalCREATININEon [id number] [Mass/Vol]0.81 mg/dLNormal 0.55-1.02The [facility] HospitalComment on above:Performed By: #### CBC #### [facility] [address] [place] [address] Dr. Yilan ChangEGFR-AF PALAUAN>60Normal>=60The [facility] HospitalComment on above:Performed By: #### CBC #### [facility] [address], [place] [address] Dr. Dailey ChangEGFR-NON AF PALAUAN>60Normal>=60The [facility] HospitalComment on above:Performed By: #### CBC #### [facility] [address], [place] [address] Dr. Dailey ChangCT LOW EXT W CONT LTon [id number] LOW EXT W CONT LTEXAMINATION: CT LOW [...] Electronically authenticated by: PATRICIA VELOZ Date: 2022-07-18 14:[address] [place], [place] [address]XR KNEE LT 1_2 Von [id number] KNEE LT 1_2 VEXAM: XR KNEE LT [...] Electronically authenticated by: HATTIE BAUTISTA Date: 2022-07-18 12:00[facility] HospitalCovid-19 PCR (CVDTB)on [id number]-CoV-2 (COVID-19) RNA MADDY+probe Ql (Unsp spec)Not detectedNormalNOT DETECTEDThe [facility] Comment on above:Result Comment: This test is not yet approved or cleared by the [place] FDA. When there are no FDA-approved or cleared tests available, and other criteria are met, FDA can make tests available under an emergency access mechanism called an Emergency Use Authorization (EUA). The EUA for this test is supported by the [employer] Administrator of Health and Human Service's (HHS's) declaration [...] consistent with SARS-CoV-2.Performed By: #### CBC #### [facility] [address] [place] [address] Dr. Ashlie MonteroNZA A AND B AGon [id number] HealthComment on above:Result Comment: Negative for Flu A protein angiten. Infection due to Flu A cannot be ruled out. FluA angiten in the sample may be below the detection limit of the test.Performed By: #### CBC #### [facility] [address] [place] [address] Dr. Ashlie HillsINFLUBNEGPremier HealthComstraith hospital for special surgery on above: Result Comment: Negative for Flu B protein antigen. Infection due to Flu B cannot be ruled out. FluB antigen in the sample may be below the detection limit of the test.Performed By: #### CBC #### [facility] [address] [place] [address] Dr. Ashlie Centeno AGNegativeNormalNEGATIVE SEE COMMENTThe [facility] on above:Performed By: #### CBC #### [facility] [address] [place] [address] Dr. Ashlie Shaffer AGNegativeNormalNEGATIVE SEE COMMENTThe [facility] on above:Performed By: #### CBC #### [facility] [address] [place] [address] Dr. Ashlie HillsPOINT OF CARE GLUCOSEon [id number] [Mass/Vol]108 mg/dL Critically pcnb29-060Glm [facility] HospitalComstraith hospital for special surgery on above:Performed By: #### CBC #### [facility] [address] [place] [address] Dr. Ashlie HillsANA by IFAon [id number] Antibodies, IFANegativeNormal The [facility] HospitalComstraith hospital for special [facility] on above:Result Comment: Negative <1:80 Borderline 1:80 Positive >1:80 ICAP nomenclature: AC-0 For more information about Hep-2 cell patterns use ANApatterns.org, the official website for the International Consensus on Antinuclear Antibody (RAGHU) Patterns (ICAP).Performed By: #### ANAIFA #### [facility] [address] [place] [address] Dr. Ashlie HillsIMMUNOFIXATION (TREVON), URINEon [id number] Interpretation:U CommentNormalThe [facility] on above:Result Comment: No monoclonality detected.Performed By: #### CBC #### [facility] [address] [place] [address] Dr. Ashlie HillsIMMUNOFIXATION(TREVON),PROTEIN ELEC(PE),FREon [id number] [Mass/Vol]3.0 g/dLNormal2.9-4.4The [facility] on above:Performed By: #### INFLUAB #### [facility] [address] [place] [address] Dr. Ashlie HillsAlbumin/Globulin [Mass ratio]0.8 {ratio}Normal0.7-1.7The [facility] HospitalComment on above:Performed By: #### INFLUAB #### [facility] [address] [place] [address] Dr. Ashlie HillsEgepxEghvf-0-Ycfrkljh5.3 g/dLNormal0.0-0.4The [facility] HospitalComment on above:Performed By: #### INFLUAB #### [facility] [address] [place] [address] Dr. Ashlie HillsGzzuvTdclp-5-Inpkptmo2.0 g/dLNormal0.4-1.0The [facility] HospitalComment on above:Performed By: #### INFLUAB #### [facility] [address] [place] [address] Dr. Ashlie HillsBeta Globulin1.8 g/dLCritically high0.7-1.3TMetroHealth Main Campus Medical Center Comment on above:Performed By: #### INFLUAB #### [facility] [address] [place] [address] Dr. Ashlie Skelton Inez Lt Chains,S45.2 mg/LCritically high3.3-19.4The [facility] HospitalComment on above:Performed By: #### INFLUAB #### [facility] [address] [place] [address] Dr. Ashlie Skelton Lambda Lt Chains,S40.3 mg/LCritically high5.7-26.3The [facility] HospitalComment on above:Performed By: #### INFLUAB #### [facility] [address] [place] [address] Dr. Ashlie HillsGamma Globulin0.8 g/dLNormal0.4-1.8The [facility] HospitalComment on above:Performed By: #### INFLUAB #### [facility] [address] [place] [address] Dr. Ashlie HillsGlobulin (S) [Mass/Vol]3.9 g/dLNormal2.2-3.9The [facility] Comment on above:Performed By: #### INFLUAB #### [facility] [address] [place] [address] Dr. Ashlie HillsImmunofixation Result, SerumCommentNoCleveland Clinic Medina [facility] Comment on above:Result Comment: No monoclonality detected.Performed By: #### INFLUAB #### [facility] [address] [place] [address] Dr. Ashlie HillsImmunoglobulin A, Qn, Gkmaz405 mg/dLCritically iqib29-368Yws [facility] HospitalComment on above:Performed By: #### INFLUAB #### [facility] [address] [place] [address] Dr. Ashlie HillsImmunoglobulin G, Qn, Dlmli897 mg/kNMgbcvh065-1710Vxa [facility] HospitalComstra[facility] hospital for [facility] on above:Performed By: #### INFLUAB #### [facility] [address] [place] [address] Dr. Ashlie HillsImmunoglobulin M, Qn, Serum39 mg/mDFdxyzd07-197Tbj [facility] HospitalComment on above:Performed By: #### INFLUAB #### [facility] [address] [place] [address] Dr. Ashlie HillsKappa/Lambda Ratio, S1.63Qhteqb9.26-1.65[facility] Comment on above:Performed By: #### INFLUAB #### [facility] [address] [place] [address] Dr. Ashlie HillsM-SpikeNot ObservedNormalNot ObservedThe [facility] HospitalComment on above:Performed By: #### INFLUAB #### [facility] [address] [place] [address] Dr. Ashlie Bradford.NormalThe [facility] HospitalComment on above:Performed By: #### INFLUAB #### [facility] [address] [place] [address] Dr. Ashlie lFetcher note:CommentPremier Health Miami [facility] on above: Result Comment: Protein electrophoresis scan will follow via computer, mail, or academic administrator delivery.Performed By: #### INFLUAB #### [facility] [address] [place] [address] Dr. Ashlie HillsProtein [Mass/Vol]6.9 g/dLNormal6.0-8.5The [facility] Comment on above:Performed By: #### INFLUAB #### [facility] [address] [place] [address] Dr. Ashlie HillsC-PEPTIDE, SERUMon [id number]-Peptide, Serum3.1 ng/mLNormal 1.1-4.4The [facility] HospitalComment on above:Result Comment: C-Peptide reference interval is for fasting patients.Performed By: #### CPEPT #### [facility] [address] [place] [address] Dr. Ashlie Sandoval B SURFACE ANTIGEN SCREENon 69-21-2315PFfCz ScreenNegative NormalNegativeThe [facility] HospitalComment on above:Performed By: #### CBC #### [facility] [address] [place] [address] Dr. Ashlie ReavesPATITIS C VIRUS AB W/ REFLEX QUANTon [id number] AB<0.1Normal 0.0-0.9The [facility] HospitalComment on above:Performed By: #### INFLUAB #### [facility] [address] [place] [address] Dr. Ashlie HillsInterpretation:CommentNormalThAdams County Regional Medical CenterComment on above:Result Comment: Negative Not infected with HCV, unless recent infection is suspected or other evidence exists to indicate HCV infection.Performed By: #### INFLUAB #### [facility] [address] [place] [address] Dr. Ashlie HillsMICROALBUMIN/ CREATININE RATIOon [id number], Mxiyw218.4 ug/mLNormalNot Estab.The [facility] HospitalComment on above:Performed By: #### CBC #### [facility] [address] [place] [address] Dr. Ashlie HillsAlbumin/ Creatinine Umrkm720 mg/g creatCritically high0-29The [facility] HospitalComment on above:Result Comment: Normal: 0 - 29 Moderately increased: 30 - 300 Severely increased: >300Performed By: #### CBC #### [facility] [address] [address] [address] Ashlie HillsCreatinine, Rrzyc369.9 mg/dLNormalNot Estab.[facility] Comment on above:Performed By: #### CBC #### [facility] [address] [address] [address] Ashlie Jerome D 25-OH LABCORPon 04-78-4795Dxetbqc D, 25-Hydroxy<4.0 Critically low30.0-100.0The [facility] HospitalComment on above:Result Comment: Vitamin D deficiency has been defined by the [place] of Medicine and an Endocrine Society practice guideline as a level of serum 25-OH vitamin D less than 20 ng/mL (1,2). The Endocrine Society went on to further define vitamin D insufficiency as a level between 21 and 29 ng/mL (2). 1. IOM ([place] of Medicine). 2010. Dietary reference intakes for calcium and D. [place]: The National Academies Press. 2. Lynda MF, [place], Leandra LOPEZ, et al. Evaluation, treatment, and prevention of vitamin D deficiency: an Endocrine Society clinical practice guideline. JCEM. 2010; 96(7):1911-30.Performed By: #### CBC #### [facility] [address] [address] [address] Ashlie HillsGLYCOHEMOGLOBIN A1Con 08-33-1981ZBZ RECOMMENDATIONSEE BELOWNormal The [facility] HospitalComment on above:Result Comment: ADA RECOMMENDED LIMIT 4.0 - 6.0 ADA THERAPEUTIC TARGET < 7.0 ACTION SUGGESTED > 7.0Performed By: #### CVDAGS #### [facility] [address] [address] [address] Ashlie HillsGlucose [Mass/Vol]295 mg/dLNormalThe [facility] HospitalComment on above:Performed By: #### CVDAGS #### [facility] [address] [address] [address] Ashlie HillsHbA1c (Bld) [Mass fraction]11.9 %Critically high4.5-6.2The [facility] HospitalComment on above:Performed By: #### CVDAGS #### [facility] [address] [place] [address] Dr. sAhlie HillsHEMOGRAM AND PLATELon 35-69-8740Daxcdepjuy (Bld) [Volume fraction]56.3 %Critically high36.0-48.0The [facility] HospitalComment on above: Performed By: #### CVDAGS #### [facility] [address] [place] [address] Dr. Ashlie HillsHemoglobin (Bld) [Mass/Vol]18.0 g/dLCritically high12.0-16.0The [facility] HospitalComment on above:Performed By: #### CVDAGS #### [facility] [address] [place] [address] Dr. Ashlie MckeonH (RBC) [Entitic mass]29.5 bfByshnu22.7-34.0The [facility] HospitalComment on above:Performed By: #### CVDAGS #### [facility] [address] [place] [address] Dr. Ashlie MckeonHC (RBC) [Mass/Vol]32.0 g/kGWadamx78.9-35.2The [facility] HospitalComment on above:Performed By: #### CVDAGS #### [facility] [address] [place] [address] Dr. Ashlie MckeonV (RBC) [Entitic vol]92.1 cJIcdodr58.0-99.0The [facility] HospitalComment on above:Performed By: #### CVDAGS #### [facility] [address] [place] [address] Dr. Ashlie HillsPLT123 103/ulCritically llt233-549Vzv [facility] HospitalComment on above:Performed By: #### CVDAGS #### [facility] [address] [place] [address] Dr. Ashlie HillsRBC6.11 106/ulCritically high4.20-5.40The [facility] Comment on above:Performed By: #### CVDAGS #### [facility] [address] [place] [address] Dr. Ashlie HillsWBC16.4 103/ulCritically high4.0-11.0The [facility] HospitalComment on above:Performed By: #### CVDAGS #### [facility] [address] [place] [address] Dr. Ashlie OmerID PROFILEon 51-43-4330BBMR-HDL RATIO NORMSEE BELOWMary Rutan HospitalComment on above:Result Comment: 3.3 - 4.4 LOW RISK 4.4 - 7.1 AVERAGE RISK 7.1 - 11.0 MODERATE RISK >11.0 HIGH RISKPerformed By: #### CVDAGS #### [facility] [address] [place] [address] Dr. Ashlie Lopezesterol [Mass/Vol]159 mg/dLNormal<=200The [facility] Comment on above:Performed By: #### CVDAGS #### [facility] [address] [place] [address] Dr. Ashlie HillsCholesterol in HDL [Mass/Vol]40 mg/vAYnzbve37-62Ogo [facility] HospitalComment on above:Performed By: #### CVDAGS #### [facility] [address] [place] [address] Dr. Ashlie HillsCholesterol in LDL [Mass/Vol]81.8 mg/dLMary Rutan HospitalComment on above:Performed By: #### CVDAGS #### [facility] [address] [place] [address] Dr. Ashlie Villa.total/Cholesterol in HDL [Mass ratio]4.0 {ratio} NormalThe [facility] HospitalComment on above:Performed By: #### CVDAGS #### [facility] [address] [place] [address] Dr. Ashlie Potts NORMAL> or = 60 mg/dl - LOW CARDIOVASCULAR RISK <40 mg/dl - HIGH CARDIOVASCULAR RISKMary Rutan HospitalComment on above:Performed By: #### CVDAGS #### [facility] [address] [place] [address] Dr. Ashlie Desai CALC NORMALSEE BELOWMary Rutan HospitalComment on above:Result Comment: <100 mg/dl OPTIMAL 100 - 129 mg/dl NEAR OR ABOVE OPTIMAL 130 - 159 mg/dl BORDERLINE HIGH 160 - 189 mg/dl HIGH >190 mg/dl VERY HIGH Performed By: #### CVDAGS #### [facility] [address] [place] [address] Dr. Ashlie HillsTriglyceride [Mass/Vol]186 mg/dLCritically high<=150The [facility] HospitalComment on above:Performed By: #### CVDAGS #### [facility] [address] [address] [address] Ashlie HillsVLDL CALC37.2 mg/dLMary Rutan HospitalComment on above: Performed By: #### CVDAGS #### [facility] [address] [place] [address] Dr. Ashlie HillsRENCHAUNCEY FUNCTION PANELon 52-30-4172Xppbjth [Mass/Vol]3.1 g/dL Critically low3.4-5.0[facility] HospitalComment on above:Performed By: #### CBC #### [facility] [address] [place] [address] Dr. Ashlie HillsCalcium [Mass/Vol]9.2 mg/dLNormal8.5-10.1[facility] Comment on above:Performed By: #### CBC #### [facility] [address] [place] [address] Dr. Ashlie HillsChloride [Moles/Vol]102 mmol/VVihcqf65-541Wzy [facility] Comment on above:Performed By: #### CBC #### [facility] [address] [address] [address] Ashlie HillsCO2 [Moles/Vol]31.9 mmol/IViehgt17.0-32.0The [facility] Comment on above:Performed By: #### CBC #### [facility] [address] [place] [address] Dr. Ashlie HillsCreatinine [Mass/Vol]0.68 mg/dLNormal0.55-1.02[facility] HospitalComment on above:Performed By: #### CBC #### [facility] [address] [address] [address] Ashlie GrahamGFR-AF PALAUAN>60Normal>=60The [facility] HospitalComment on above:Performed By: #### CBC #### [facility] [address] [address] [address] Ashlie GrahamGFR-NON AF PALAUAN>60Normal>=60The [facility] HospitalComment on above:Performed By: #### CBC #### [facility] [address] [address] [address] Ashlie HillsGlucose [Mass/Vol]131 mg/dLCritically igzc68-756Hkj [facility] HospitalComment on above:Performed By: #### CBC #### [facility] [address] [address] [address] Ashlie HillsPhosphate [Mass/Vol]4.0 mg/dLNormal2.6-4.7The [facility] Comment on above:Performed By: #### CBC #### [facility] [address] [address] [address] Ashlie HillsPotassium [Moles/Vol]4.0 mmol/LNormal3.5-5.1The [facility] Comment on above:Performed By: #### CBC #### [facility] [address] [address] [address] Ashlie HillsSodium [Moles/Vol]141 mmol/DVuhfsm224-126Noa [facility] Comment on above:Performed By: #### CBC #### [facility] [address] [address] [address] Ashlie HillsUrea nitrogen [Mass/Vol]17.0 mg/dLNormal7.0-18.0The [facility] HospitalComment on above:Performed By: #### CBC #### [facility] [address] [address] [address] Ashlie Vaughn RANDOM W/MICROSCOPICon 03-40-0531OZREVBTAAQLW SEENNormalNONE SEENThe [facility] HospitalComment on above:Performed By: #### INFLUAB #### [facility] [address] [address] [address] Ashlie HillsBilirubin Ql (U)NegativeNormalNEGClermont County Hospital Comment on above:Performed By: #### INFLUAB #### [facility] [address] [address] [address] Ashlie HillsCASTNONE SEENNormalNONE SEENLima Memorial HospitalComment on above:Performed By: #### INFLUAB #### [facility] [address] [address] [address] Ashlie HillsClarity (U)CLEARNormalCLEARLima Memorial HospitalComment on above: Performed By: #### INFLUAB #### [facility] [address] [address] [address] Ashlie HillsColor (U)YELLOWNormalYELLOWLima Memorial HospitalComment on above: Performed By: #### INFLUAB #### [facility] [address] [address] [address] Ashlie HillsCrystals LM Nom (Urine sed)NONE SEENNormalNONE SEENLima Memorial HospitalComment on above:Performed By: #### INFLUAB #### [facility] [address] [address] [address] Dailey ChangEpithelial cells LM Ql (Urine sed)FEWAbnormalNONE SEEN /RARELima Memorial HospitalComment on above:Performed By: #### INFLUAB #### [facility] [address] [address] [address] Ashlie HillsGlucose Ql (U)NegativeNormalNEGATIVELima Memorial HospitalComment on above:Performed By: #### INFLUAB #### [facility] [address] [place] [address] Dr. Ashlie HillsHemoglobin Ql (U)NegativeNormalNEGClermont County Hospital Comment on above:Performed By: #### INFLUAB #### [facility] [address] [address] [address] Ashlie HillsKetones Ql (U)NegativeNormalNEGATIVEHarrison Community Hospital [facility] HospitalComment on above:Performed By: #### INFLUAB #### [facility] [address] [address] [address] Ashlie HillsLEUKOCYTESNegativeNormalNEGATIVEThe [facility] HospitalComment on above:Performed By: #### INFLUAB #### [facility] [address] [place] [address] Dr. Ashlie HillsMUCOUSNONE SEENNormalNONE SEENThe [facility] HospitalComment on above:Performed By: #### INFLUAB #### [facility] [address] [place] [address] Dr. Ashlie HillsNitrite Ql (U)NegativeNormalNEGATIVEThe [facility] HospitalComment on above:Performed By: #### INFLUAB #### [facility] [address] [place] [address] Dr. Ashlie HillspH (U)5.5 [pH]Normal5-9The [facility] HospitalComment on above: Performed By: #### INFLUAB #### [facility] [address] [place] [address] Dr. Ashlie HillsRfaqxFDU7-5Qvxyiu5-0Tio [facility] on above:Performed By: #### INFLUAB #### [facility] [address] [place] [address] Dr. Ashlie HillsSPEC GRAVITY>=1.977Xmbypowy3.005-<=1.025The [facility] Comment on above:Performed By: #### INFLUAB #### [facility] [address] [place] [address] Dr. Ashlie Vaughn XHVXNFS753 mg/dlAbnormalNEGATIVE/ TRACEThe [facility] Comment on above:Performed By: #### INFLUAB #### [facility] [address] [place] [address] Dr. Ashlie Pandyainogen Qn (U)0.2 {Little'U}/dLNormal0.2 - 1.0The [facility] HospitalComment on above:Performed By: #### INFLUAB #### [facility] [address] [address] [address] Ashlie BhaktaBCNONTracey SEENNormalNONE SEENThe [facility] HospitalComment on above: Performed By: #### INFLUAB #### [facility] [address] [place] [address] Dr. Ashlie Christine ACID SERUMon [id number] [Mass/Vol]5.0 mg/dLNormal 2.6-6.0The [facility] HospitalComment on above:Performed By: #### INFLUAB #### [facility] [address] [place] [address] Dr. Ashlie Recinos T PROTEIN CREAT RATIOon [id number] (U) [Mass/Vol] 77.9 mg/dLCritically high<=12.0The [facility] HospitalComment on above:Performed By: #### CVDAGS #### [facility] [address] [place] [address] Dr. Ashlie Sullivan PROT CREAT RAT0.44NormalThe [facility] HospitalComment on above: Performed By: #### CVDAGS #### [facility] [address] [place] [address] Dr. Ashlie Recinos BYVFN452.15 mg/xFWszbay75.00-300.00The [facility] Comment on above:Performed By: #### CVDAGS #### [facility] [address] [place] [address] Dr. Ashlie HillsCULTURE URINEon [id number] URINECulture Observations: GREATER THAN TWO ORGANISMS PRESENT, HEAVILY MIXED. PLEASE RESUBMIT CLEAN CATCH MID-STREAM URINE IF CLINICALLY INDICATED.NormalThe [facility] HospitalComment on above:Performed By: #### INFLUAB #### [facility] [address] [place] [address] Dr. Ashlie VernonC AUTO DIFFon [id number] #0.1 103/ulNormal0.0-0.1The [facility] HospitalComment on above:Performed By: #### CBC #### [facility] [address] [place] [address] Dr. Ashlie HillsBasophils/100 WBC (Bld)0.5 %Normal0.2-2.0The [facility] Comment on above:Performed By: #### CBC #### [facility] [address] [address] [address] Ashlie Mcintosh #0.4 103/ulNormal0.0-0.7The [facility] HospitalComment on above: Performed By: #### CBC #### [facility] [address] [address] [address] Ashlie Grahamosinophils/100 WBC (Bld)2.4 %Normal0.9-7.0The [facility] Comment on above:Performed By: #### CBC #### [facility] [address] [place] [address] Dr. Ashlie Grahamrythrocyte distribution width (RBC) [Ratio]14.1 %Sejkxh76.0-15.0 [facility] HospitalComment on above:Performed By: #### CBC #### [facility] [address] [place] [address] Dr. Ashlie HillsHematocrit (Bld) [Volume fraction]55.9 %Critically high36.0-48.0 The [facility] HospitalComment on above:Performed By: #### CBC #### [facility] [address] [place] [address] Dr. Ashlie HillsHemoglobin (Bld) [Mass/Vol]17.9 g/dLCritically high12.0-16.0The [facility] HospitalComment on above:Performed By: #### CBC #### [facility] [address] [place] [address] Dr. Ashlie Hunter #0.06 10e3/ulCritically high0.00-0.03The [facility] Comment on above:Performed By: #### CBC #### [facility] [address] [address] [address] Ashlie Hunter %0.4 %Normal0.0-0.5The [facility] HospitalComment on above: Performed By: #### CBC #### [facility] [address] [address] [address] Ashlie Swenson #5.8 103/ulCritically high1.2-3.8The [facility] Comment on above:Performed By: #### CBC #### [facility] [address] [address] [address] Ashlie Jademphocytes/100 WBC (Bld)35.4 %Zaxnzh97.5-60.0The [facility] HospitalComment on above:Performed By: #### CBC #### [facility] [address] [place] [address] Dr. Ashlie Marie DIFF REQNONormalThe [facility] HospitalComment on above: Performed By: #### CBC #### [facility] [address] [place] [address] Dr. Ashlie Mckeon (RBC) [Entitic mass]29.4 dkMefpbq85.7-34.0The [facility] HospitalComment on above:Performed By: #### CBC #### [facility] [address] [place] [address] Dr. Ashlie Mckeon (RBC) [Mass/Vol]32.0 g/oZFygdvy07.9-35.2The [facility] HospitalComment on above:Performed By: #### CBC #### [facility] [address] [place] [address] Dr. Ashlie Mckeon (RBC) [Entitic vol]91.8 xYWfhbtc72.0-99.0The [facility] HospitalComment on above:Performed By: #### CBC #### [facility] [address] [place] [address] Dr. Ashlie Killian #0.8 103/ulNormal0.3-0.8The [facility] HospitalComment on above:Performed By: #### CBC #### [facility] [address] [place] [address] Dr. Ashlie Palominoocytes/100 WBC (Bld)4.8 %Normal1.7-12.0[facility] Comment on above:Performed By: #### CBC #### [facility] [address] [address] [address] Ashlie SteinUT #9.3 103/ulCritically high1.4-6.5The [facility] Comment on above:Performed By: #### CBC #### [facility] [address] [address] [address] Ashlie Steinutrophils/100 WBC (Bld)56.5 %Sctxuh31.0-75.0The [facility] HospitalComment on above:Performed By: #### CBC #### [facility] [address] [address] [address] Ashlie Lantigualet mean volume (Bld) [Entitic vol]12.9 fLNormal9.5-13.5The [facility] HospitalComment on above:Performed By: #### CBC #### [facility] [address] [place] [address] Dr. Ashlie HillsPLT127 103/ulCritically khq828-083Qvy [facility] HospitalComment on above:Performed By: #### CBC #### [facility] [address] [address] [address] Ashlie HillsRBC6.09 106/ulCritically high4.20-5.40The [facility] Comment on above:Performed By: #### CBC #### [facility] [address] [address] [address] Ashlie HillsWBC16.4 103/ulCritically high4.0-11.0The [facility] HospitalComment on above:Performed By: #### CBC #### [facility] [address] [place] [address] Dr. Ashlie HillsCT ABD/PELVIS WO CONon [id number] ABD/PELVIS WO CON Begin Addendum #1 Mildly [...] without diverticulitis. Severe right hip degenerative change.NormalThe [facility] URINE PROFILEon [id number] Ql (U) NegativeNormalNEGATIVELima Memorial HospitalComment on above:Performed By: #### ERUR, UMICRO #### [facility] [address] [address] [address] Ashlie Chilel (U)CLEARNormalCLEARLima Memorial HospitalComment on above: Performed By: #### ERUR, UMICRO #### [facility] [address] [address] [address] Ashlie Roberts (U)DK. ORANGEAbnormalYELLOWLima Memorial HospitalComment on above:Performed By: #### ERUR, UMICRO #### [facility] [address] [address] [address] Ashlie Clayton micrscopic examination will be performed if indicated. NormalLima Memorial HospitalComment on above:Performed By: #### OBED, UMICRO #### [facility] [address] [address] [address] Ashlie HillsGlucose Ql (U)250 mg/dlAbnormalOhioHealth Dublin Methodist Hospital Comment on above:Performed By: #### KRISTINAR, UMICRO #### [facility] [address] [address] [address] Ashlie HillsHemoglobin Ql (U)[facility] AnsonrmalNEGClermont [facility] Hospital Comment on above:Performed By: #### ERUR, UMICRO #### [facility] [address] [address] [address] Ashlie HillsKetones Ql (U)NegativeNormalNEGATIVELima Memorial HospitalComment on above:Performed By: #### ERUR, UMICRO #### [facility] [address] [address] [address] Ashlie HillsLEUKOCYTESNegativeNormalNEGClermont County HospitalComment on above:Performed By: #### ERUR, UMICRO #### [facility] [address] [address] [address] Ashlie HillsNitrite Ql (U)NegativeNormalNEGATIVELima Memorial HospitalComment on above:Performed By: #### ERUR, UMICRO #### [facility] [address] [place] [address] Dr. Ashlie HillspH (U)5.0 [pH]Normal5-9The [facility] HospitalComment on above: Performed By: #### OBED UMICRO #### [facility] [address] [place] [address] Dr. Ashlie HillsProtein (U) [Mass/Vol]100 mg/dLAbnormalNEGATIVE/ TRACEThe [facility] HospitalComment on above:Performed By: #### OBED UMICRO #### [facility] [address] [place] [address] Dr. Ashlie HillsSPEC GRAVITY>=1.325Blcvwqsj1.005-<=1.025The [facility] Comment on above:Performed By: #### OBED UMICRO #### [facility] [address] [place] [address] Dr. Ashlie HillsUR MICRO INDINDICATEDNormalThe [facility] HospitalComment on above: Performed By: #### OBED UMICRO #### [facility] [address] [place] [address] Dr. Ashlie Metzbilinogen Qn (U)1.0 {Little'U}/dLNormal0.2 - 1.0The [facility] HospitalComment on above:Performed By: #### OBED UMICRO #### [facility] [address] [place] [address] Dr. Ashlie HillsPROF CHEM 8 (BAS METB)on [id number] gap [Moles/Vol]12.1 mmol/LNormalThe [facility] HospitalComment on above:Performed By: #### INFLUAB #### [facility] [address] [place] [address] Dr. Ashlie HillsCalcium [Mass/Vol]9.0 mg/dLNormal8.5-10.1[facility] Comment on above:Performed By: #### INFLUAB #### [facility] [address] [place] [address] Dr. Ashlie HillsChloride [Moles/Vol]101 mmol/GHblkpt66-634Ggq [facility] Comment on above:Performed By: #### INFLUAB #### [facility] [address] [place] [address] Dr. Ashlie HillsCO2 [Moles/Vol]29.1 mmol/KWyogra35.0-32.0The [facility] Comment on above:Performed By: #### INFLUAB #### [facility] [address] [address] [address] Ashlie HillsCreatinine [Mass/Vol]0.86 mg/dLNormal0.55-1.02The [facility] HospitalComment on above:Performed By: #### INFLUAB #### [facility] [address] [place] [address] Dr. Dailey ChangEGFR-AF PALAUAN>60Normal>=60The [facility] HospitalComment on above:Performed By: #### INFLUAB #### [facility] [address] [place] [address] Dr. Ashlie GrahamGFR-NON AF PALAUAN>60Normal>=60The [facility] HospitalComment on above:Performed By: #### INFLUAB #### [facility] [address] [place] [address] Dr. Ashlie HillsGlucose [Mass/Vol]236 mg/dLCritically uitk95-962Xdp [facility] HospitalComment on above:Performed By: #### INFLUAB #### [facility] [address] [place] [address] Dr. Ashlie HillsPotassium [Moles/Vol]4.2 mmol/LNormal3.5-5.1The [facility] Comment on above:Performed By: #### INFLUAB #### [facility] [address] [place] [address] Dr. Ashlie HillsSodium [Moles/Vol]138 mmol/LGhqvtt794-958Gid [facility] Comment on above:Performed By: #### INFLUAB #### [facility] [address] [place] [address] Dr. Ashlie HillsUrea nitrogen [Mass/Vol]11.0 mg/dLNormal7.0-18.0[facility] HospitalComment on above:Performed By: #### INFLUAB #### [facility] [address] [place] [address] Dr. Ashlie Jnoes nitrogen/Creatinine [Mass ratio]12.8 mg/mgNoCleveland Clinic Medina HospitalComment on above:Performed By: #### INFLUAB #### [facility] [address] [place] [address] Dr. Ashlie Recinos MICROSCOPIC ONLYon [id number]E SEEN [facility] HospitalComstraith hospital for special surgery on above:Performed By: #### MADELINE CLAYRO #### [facility] [address] [place] [address] Dr. Ashlie Cortez identified Cx Nom (U)INDICATEDMary Rutan HospitalComstraith hospital for special surgery on above:Performed By: #### PEREZ CLAYICRO #### [facility] [address] [place] [address] Dr. Ashlie Thibodeaux SEENNormalNONE SEENLima Memorial HospitalComstraith hospital for special surgery on above:Performed By: #### MADELINE CLAYRO #### [facility] [address] [place] [address] Dr. Ashlie Banegas LM Nom (Urine sed)NONE SEENNormalNONE SEENLima Memorial HospitalComstraith hospital for special surgery on above:Performed By: #### OBED UMICRO #### [facility] [address] [place] [address] Dr. Dailey ChangEpithelial cells LM Ql (Urine sed)MODERATEAbnormalNONE SEEN /RARE The [facility] HospitalComstraith hospital for special surgery on above:Performed By: #### OBED UMICRO #### [facility] [address] [place] [address] Dr. Ashlie Guzman SEENNormalNONE SEENLima Memorial HospitalComstraith hospital for special surgery on above:Performed By: #### OBED UMICRO #### [facility] [address] [place] [address] Dr. Ashlie HillsJgmtbUWO6-5Nuipnx9-1WhqCleveland Clinic Ak[facility] General Lodi Hospitalment on above:Performed By: #### ERUR, UMICRO #### [facility] [address] [place] [address] Dr. Ashlie HillsWBC0-2AbnormalNONE SEENSalem [facility] on above: Performed By: #### ERUR, UMICRO #### [facility] [address] [address] [address] Ashlie VelásquezASTPRESENTAbnormalNONE SEENCleveland Clinic Akron General Lodi Hospitalment on above:Performed By: #### ERUR, UMICRO #### [facility] [address] [address] [address] Ashlie Hutchinson RIGHT 1 OR 2 VWS WITH PELVISon [id number] RIGHT 1 OR 2 VWS WITH PELVISUnLancaster Municipal Hospital Department of Radiology [address] [place] [id number] Patient Name: MITZI MACIAS : 1970 Sex: F Age: Race: White Pt. Location: Patient Status: O Ordered Date: 07/20/2020 1:45:00 PM Completed Date: 07/20/2020 01:57 PM Requesting Provider: LIZ EISENBERG Attending Provider: LIZ EISENBERG Report Copy To: MCKAYLA BLAS Signs & Symptoms: M25.551 Pain in right hip I10 History: [place] Comments: evaluate Exam: HIP RIGHT 1 OR [...] MRI. Electronically signed: Pipo Acevedo. Transcribed by: [email or web address], User Resident: Electronically Signed by: PIPO ACEVEDO @ 07/20/2020 03:45 [facility]Comment [facility]:Order Comment: evaluate Vital Signs Date TimeVital SignValuePerforming RmarajkigTuknnlya22-16-2339 17:58-0400Body kjrwoe605.1 cmLisa Aichholz [employer] Work Phone: [phone] [place], [place] 618[address]10-22-2025 17:58-0400 Body mass index (BMI) [Ratio]61 kg/m2Lisa Aichholz [employer] Work Phone: [phone]10-22-2025 17:58-0400 Body mxhlgshemqo82.1 [degF]Mckayla Aichholz [employer] Work Phone: [phone]10-22-2025 17:58-0400 Body wrhoed622.18 kgLisa Aichholz [employer] Work Phone: [phone] [place], [place] 8350110-22-2025 17:58-0400 Diastolic blood uvxzmjna02 mm[Hg]Mckayla Aichholz [employer] Work Phone: [phone] [place], [place] 8350110-22-2025 17:58-0400 Heart rate84 /minLisa Aichholz [employer] Work Phone: [phone]10-22-2025 17:58-0400 Respiratory rate20 /minLisa Aichholz [employer] Work Phone: [phone] [place], [place] 835[address]10-22-2025 17:58-0400 SaO2% (BldA) [Mass fraction]90 %Mckayla Aichholz [employer] Work Phone: [phone]10-22-2025 17:58-0400 Systolic blood uwloywmf939 mm[Hg]Mckayla Aichholz [employer] Work Phone: [phone]09-29-2025 15:37-0400 Body mjrohcyvkia52.1 [degF]Mckayla Aichholz [employer] Work Phone: [phone])[phone]09-29-2025 15:37-0400 Diastolic blood mm[Hg]Mckayla Aichholz [employer] Work Phone: 1(635)[address]09-29-2025 15:37-0400 Heart rate81 /minLisa Aichholz [employer] Work Phone: [phone])[address] [place], [place] 6183409-29-2025 15:37-0400 Respiratory rate20 /minLisa Aichholz [employer] Work Phone: [phone]09-29-2025 15:37-0400 SaO2% (BldA) [Mass fraction]92 %Mckayla Aichholz [employer] Work Phone: [phone]09-29-2025 15:37-0400 Systolic blood tzipdbfu568 mm[Hg]Mckayla Aichholz [employer] Work Phone: [phone]07-24-2025 09:48-0400 Body .2 Reji Souza MD Work Phone: [facility] ServicesZgyflaxbug04-59-7796 09:48-0400Body mass index (BMI) [Ratio]56.38 kg/v0ZowonRain Souza MD Work Phone: noWashington County Memorial HospitalXgvfzioevh68-99-3908 09:48-0400Body iqutzp885.29 kgRain Souza MD Work Phone: [facility] ServicesYpletwrbih45-65-5344 09:48-0400Diastolic blood oqyxqdvx46 mm[Hg]Rain Souza MD Work Phone: [facility] ServicesIxehbimehh57-48-5277 09:48-0400Heart rate72 /min Rain Souza MD Work Phone: [facility] ServicesIfhosrrdgm32-68-5802 09:48-0400Respiratory rate16 /minRain Souza MD Work Phone: [facility] ServicesPtasqqnifv91-15-4454 09:48-2180CgK3% (BldA) [Mass fraction]84 %Rain Souza MD Work Phone: [facility] ServicesUdrefqzpsr38-82-6001 09:48-0400Systolic blood wjdftmec014 mm[Hg]Rain Souza MD Work Phone: [facility] ServicesDmtwdlftga03-24-8644 18:11-0400Body mass index (BMI) [Ratio]58.64 kg/m2Lisa Wan [employer] Work Phone: [facility] ServicesEkcgrygaqv46-24-1577 18:11-0400Body temperature 98.49 [degF]Mckayla Wan [employer] Work Phone: [facility] ServicesMybcsqgepy67-25-9420 18:11-0400Body capami337.83 kgLisa Juanjosehmariyaz [employer] Work Phone: [facility] ServicesBmzcchraxu55-43-0716 18:11-0400Diastolic blood frpvsond66 mm[Hg]Mckayla Chetz [employer] Work Phone: [facility] ServicesFlbdvrfdns60-30-9004 18:11-0400Heart rate81 /min Mckayla Chetz [employer] Work Phone: [address] [address]Mwelnpbymz00-01-5906 18:11-0400Respiratory rate20 /minLisa Chetz [employer] Work Phone: [address] [address]Hxbsedtlyt47-60-6490 18:11-3474XiJ4% (BldA) [Mass fraction]90 %Mckayla Chetz [employer] Work Phone: [facility] ServicesRqrxdwidpc14-03-9452 18:11-0400Systolic blood pcexfqan353 mm[Hg]Mckayla Rosenbergz [employer] Work Phone: [facility] ServicesGmrmxtkgnf02-16-8801 10:19-0400Body temperature 98.01 [degF]Mckayla Harshadholz [employer] Work Phone: [facility] ServicesQnvuqjgbqq48-25-8932 10:19-0400Diastolic blood dafebjyy44 mm[Hg]Mckayla Harshadholz [employer] Work Phone: [facility] ServicesAcilrmostd20-21-2994 10:19-0400Heart rate71 /min Mckayla Chetz [employer] Work Phone: [facility] ServicesJvrcihxrss58-83-9183 10:19-0400Respiratory rate20 /minLisa Patriciaholz [employer] Work Phone: [facility] ServicesQjxdkjtnkp33-34-6035 10:19-8329HdE5% (BldA) [Mass fraction]88 %Mckayla Rosenbergz [employer] Work Phone: [facility] ServicesTstljwgsal09-58-1282 10:19-0Systolic blood lovytoqe297 mm[Hg]Mckayla Rosenbergz [employer] Work Phone: [facility] ServicesCwdxxgplpq80-41-2008 14:11-0400Body ihbjer904.2 Brianisa Harshadholz [employer] Work Phone: [facility] ServicesTblcpdgbmr05-17-4794 14:11-0400Body mass index (BMI) [Ratio]56.51 kg/m2Lisa Harshadholz [employer] Work Phone: [facility] ServicesNxqhkvgkpk46-63-5581 14:11-0400Body temperature 98.71 [degF]Mckayla Patriciaholz [employer] Work Phone: [facility] ServicesJwtbhdepjx01-56-2671 14:11-0400Body xajcsu487.66 kgLisa Juanjosehholz [employer] Work Phone: [facility] ServicesYmdmiavnqt70-21-7732 14:11-0400Diastolic blood uhrahpxv71 mm[Hg]Mckayla Blas [employer] Work Phone: [facility] ServicesOmjjjzgqzj84-17-9308 14:11-0400Heart rate75 /min Mckayla Blas [employer] Work Phone: noWashington County Memorial HospitalPndiynthif94-38-7985 14:11-0400Respiratory rate18 /minLisa Blas [employer] Work Phone: noWashington County Memorial HospitalRvzhnmeedx39-59-7799 14:11-1105XvD2% (BldA) [Mass fraction]90 %Mckayla Blas [employer] Work Phone: [facility] ServicesYdovoeacyc69-50-7129 14:11-0400Systolic blood uqdcaikj182 mm[Hg]Mckayla Blas [employer] Work Phone: [facility] ServicesGvvoksxhuo94-24-0084 11:21-0400Body isuwbq641.2 Reji Souza MD Work Phone: [facility] ServicesWrihjdagvl70-04-9355 11:21-0400Body mass index (BMI) [Ratio]55.91 kg/y1LkcouRain Souza MD Work Phone: [phone] ServicesPudaixxclo81-92-9013 11:21-0400Body uzgoqv149.93 kgRain Souza MD Work Phone: [facility] ServicesGsutpydaak05-08-6199 11:21-0400Diastolic blood jpyzbgap68 mm[Hg]Rain Souza MD Work Phone: [facility] ServicesKhqumdudld44-94-4230 11:21-0400Heart rate70 /min Rain Souza MD Work Phone: [facility] ServicesNnlpacjhfv84-01-3361 11:21-0400Respiratory rate16 /minRain Souza MD Work Phone: [facility] ServicesElpkgfocwg34-44-9344 11:21-5375WxX6% (BldA) [Mass fraction]91 %Rain Souza MD Work Phone: [facility] ServicesDnhetgcawl39-46-3971 11:21-0400Systolic blood zomttjfz110 mm[Hg]Rain Souza MD Work Phone: noWashington County Memorial HospitalGlwxeqiahd23-62-0479 17:44-0500Body mass index (BMI) [Ratio]57.31 kg/m2Mckayla Blas [employer] Work Phone: noWashington County Memorial HospitalMygapbuvts29-05-4194 17:44-0500Body temperature 98.01 [degF]Mckaylajuvenal Blas [employer] Work Phone: [facility] ServicesCgacbaalzt14-55-4370 17:44-0500Body sbwekv793.97 kgMaria De Jesus Wan [employer] Work Phone: [facility] ServicesSwxjbjrohn24-44-5248 17:44-0500Diastolic blood icgookqu55 mm[Hg]Mckayla Wan [employer] Work Phone: [facility] ServicesEhwowlpful39-30-4835 17:44-0500Heart rate83 /min Mckaylajuvenal Blas [employer] Work Phone: [facility] ServicesBraokcpabk55-00-8714 17:44-0500Respiratory rate18 /minLi Wan [employer] Work Phone: [facility] ServicesUuprkshzet04-26-0615 17:44-6845QfC0% (BldA) [Mass fraction]91 %Mckayla Wan [employer] Work Phone: [facility] ServicesItyoqkdrym09-60-0369 17:44-0500Systolic blood wcemfgel416 mm[Hg]Mckaylajuvenal Blas [employer] Work Phone: [facility] ServicesIwndxgccms95-15-2270 10:00-0500Blood Pressure LocationPatricezra ARAUZ [facility] [place] 508572-04-2024 10:00-0500Diastolic blood vvuzbzql88 mm[Hg]Elbert ARAUZ [facility] [place] 508572-04-2024 10:00-0500Heart rate76 /minPatrick ARAUZ [facility] 10:00-0500Systolic blood vxpnujbb047 mm[Hg]Elbert ARAUZ [facility] [place] 633811-19-2024 10:20-0500Body lfxlno480.2 Reji Souza MD Work Phone: [address] [place], [place] [address]Qgzqvjutnq98-15-3654 10:20-0500Body mass index (BMI) [Ratio]56.7 kg/w3AunkuRain Souza MD Work Phone: [facility] ServicesVbviqzbuzu75-14-5575 10:20-0500Body sgiftv266.2 kgRain Souza MD Work Phone: [facility] ServicesTaznslfmrv46-28-5771 10:20-0500Diastolic blood ahmogakv37 mm[Hg]Rain Souza MD Work Phone: [phone] [place], [place] [address]Efpbicqutr04-32-0300 10:20-0500Heart rate72 /min Rain Souza MD Work Phone: [place] [address]Pwhromaepg50-52-0663 10:20-0500Respiratory rate16 /minRain Souza MD Work Phone: [place] [address]Zgxdpgebkc41-43-0216 10:20-0500Systolic blood mm[Hg]Rain Souza MD Work Phone: [facility] ServicesHzifwnhggv48-46-7733 10:27-0400Body hcizix868.1 Jamal Blas [employer] Work Phone: [facility] ServicesOhpsoarhdk75-32-2768 10:27-0400Body mass index (BMI) [Ratio]61.01 kg/m2Mckayla Blas [employer] Work Phone: [facility] ServicesBsycfvnhiw03-46-0044 10:27-0400Body temperature 98.49 [degF]Mckayla Blas [employer] Work Phone: [facility] ServicesZpalffjivg35-88-4520 10:27-0400Body fjefvv143.29 kgMckayla Blas [employer] Work Phone: [facility] ServicesVfbnxkbetw99-02-9446 10:27-0400Diastolic blood sqkemhzu79 mm[Hg]Mckayla Blas [employer] Work Phone: [facility] ServicesXnvveyzzlx35-43-7296 10:27-0400Heart rate77 /min Mckayla Blas [employer] Work Phone: [facility] ServicesHibwdbmpqk90-54-8366 10:27-0400Respiratory rate19 /minMckayla Blas [employer] Work Phone: [facility] ServicesPylxqtbtet78-23-1936 10:27-4661RhJ0% (BldA) [Mass fraction]92 %Mckayla Blas [employer] Work Phone: noWashington [facility] HospitalVuxllmzbyq06-46-3535 10:27-0400Systolic blood fgxpbfei258 mm[Hg]Mckayla Blas [employer] Work Phone: [facility] ServicesYwuxvkjtuq34-74-3670 15:00-0400Body .18 cmAbdul Tico Other [employer] [facility] [employer] Other 448393-03-2042 15:00-0400Body mifpplyqool02.6 [degF]Stephanie Tico Other [place] [employer] Other 850576-29-4688 15:00-0400Diastolic blood mm[Hg] Stephanie Tico Other [employer] Other 08-31-2022 15:00-0400Respiratory rate20 /minAbdul Tico Other [employer] Other 08-31-2022 15:00-1887GkV3% (BldA) [Mass fraction]91 % Stephanie Tico Other [place] [employer] Other 08-31-2022 15:00-0400Systolic blood pomundne021 mm[Hg] Stephanie Tico Other [employer] [facility] [employer] Other 08-15-2022 09:20-0400Body xymzip643.18 cmAbdul Tico Other [place] [employer] Other 08-15-2022 09:20-0400Body fbvoqinlykd77.5 [degF]Stephanie Tico Other [employer] Other 08-15-2022 09:20-0400Diastolic blood qguqrsdt11 mm[Hg] Stephanie Tico Other [employer] Other 08-15-2022 09:20-0400Respiratory rate20 /minAbdul Tico Other [place] [employer] Other 08-15-2022 09:20-2132ZmA3% (BldA) [Mass fraction]91 % Stephanie Tico Other [place] [employer] Other 08-15-2022 09:20-0400Systolic blood ofdeejhr917 mm[Hg] Stephanie Tico Other [employer] Other 08-01-2022 10:24-0400Blood Pressure LocationElbert REGLA [facility] 08-01-2022 10:24-0400Diastolic blood dvefifpa18 mm[Hg] Elbert ARAUZ [facility] 08-01-2022 10:24-0400Heart rate70 /minPatrick ARAUZ [facility] 08-01-2022 10:24-0400Respiratory rate16 /minPatrick REGLA [facility] 08-01-2022 10:24-0400Systolic blood pbhyuoak315 mm[Hg] Elbert ARAUZ [facility] Encounters Encounter DateEncounter TypeCare ProviderFacilityStart: 27-03-8633tqtmvphzbrtoo Urias DPMFacility:Ortho/Sport MedStart: 04-29-2025 End: 70-81-8202oihnkirvakIuepCarol Blas NP-C Work Phone: -[facility] ClydeStart: 04-29-2025 End: 74-17-7314Zxnemqz encounter procedureMckayla Blas NP-C-[facility] [place] Work Phone: Start: 04-23-2025 End: 76-03-5663angmnebxadEjwpbihAlma Kellogg MDFacility:[facility] Start: 04-17-2025 End: 00-86-1860lgbjjvobnoVbir Jo Aichholz MANAGER VOICE-CNPFacility:[facility] Hospital[facility]art: 04-06-2025 End: 85-27-3601rjnjgarjvyFpyqCarol Blas NP-C Work Phone: [facility] Work Phone: Start: 04-06-2025 End: 21-12-0607Tqzhghl encounter procedureMckayla Blas NP-C-[facility] [place] Work Phone: Start: 82-56-0972Pzvoetd encounter procedureMckayla Blas [employer]-C Work Phone: [facility] Hospitaltart: 37-11-0608Xra- patient / Non-visitFlynn Urias DPM-[facility] Work Phone: Start: 68-77-0060Vav-patient / Non-visitPrice Ramsey DO-[facility] Work Phone: Start: 76-16-3404xtxmyxsxmaDqkrnr Nas Rojas MANAGER VOICE-PROOF PRESS OPERATOR [facility]Start: 03-23-2025 End: 60-75-1371oubnnpxoflDuapa Jon Johnson DPMFacility:[facility] Start: 03-11-2025 End: 42-96-9356rrxgucmvdcMnbzd Huey Urias DPMFacility: [facility] CtrStart: 03-09-2025 End: 93-98-6352CmygczYhhu Aichholz [employer] Work Phone: noMS [facility] FMComment on above:Tobacco user; Encounter for smoking cessation counselingStart: 01-29-2025 End: 56-82-8589Wzrcuf Jack Souza MD Work Phone: noms ENDOCRINOLOGYStart: 01-29-2025 End: 57-23-5577Oiknipashley Souza MD Work Phone: noms ENDOCRINOLOGYStart: 01-29-2025 End: 39-63-7255Ebnmzdkur Result EncounterGeneric External Data ProviderNOMS External Department UnsolicitedStart: 01-29-2025 End: 93-41-7125bhhnxpltyzRNJCV F SABBAGHNot AvailableStart: 01-29-2025 End: 18-10-5960Jqyqee outpatient visit 25 minutesRain Souza MD Work [...] index (BMI) of50.0 to 59.9 in adult ([facility])Start: 01-26-2025 End: 56-50-9965muuaquvozkQHQD AICHHOLZNot AvailableStart: 01-26-2025 End: 26-08-5679Tnyfmrb encounter Marcela Blas NP Work Phone: noms CW FMComment on above:Encounter for subsequent annual wellness visit (AWV) in Medicare patient (Primary Dx); Mixed hyperlipidemia ; Type 2 diabetes mellitus with complication, with long-term current use of insulin ([facility]); Bilateral lower extremity edema; Gastro-esophageal reflux disease without esophagitis; Chronic diastolic heart failure ([facility]); Primary hypertension ; Pulmonary hypertension ([facility]); Diabetic polyneuropathy associated with type 2 diabetes mellitus ([facility]); Pulmonary emphysema, unspecified emphysema type ([facility]); Moderate persistent asthma without complication ([facility]); Insomnia; Non-seasonal allergic rhinitis, unspecified trigger; Type 2 diabetes mellitus with unspecified complications ([facility]); Anxiety and depression ; Antibiotic-induced yeast infection; Chronic obstructive pulmonary disease, unspecified (HCC); Hyperlipidemia, unspecified ; Vaginal yeast infection; Morbid (severe) obesity due to excess calories ([facility])Start: 01-06-2025 End: 25-24-4090ojemefckvnHKMEWBQSalem City Hospitaltart: 12-18-2024 End: 65-75-2032NnfvefNmjd Aichholz [employer] Work Phone: noms CW FMComment on above:Hyperlipidemia, unspecified ; Tobacco user; Encounter for smoking cessation counselingStart: 12-09-2024 End: 53-92-4355Esaudfashley Blas [employer] Work Phone: noms CWM FMStart: 12-09-2024 End: 40-40-0556Hfivlwyousif Blas NP Work Phone: noms CWM FMStart: 12-09-2024 End: 37-65-5339jfnsbcscioCWAQ AICHHOLZNot AvailableStart: 12-09-2024 End: 87-91-1687Ifwdlh outpatient visit 25 minutesMckayla Blas [employer] Work Phone: noms [facility] FMComment on above:Cellulitis of left lower extremity (Primary Dx); COPD exacerbation (CMS/HCC); Primary hypertension (CMS/HCC); Pulmonary hypertension (CMS/HCC); Morbid (severe) obesity due to excess calories ([facility]/HCC); Type 2 diabetes mellitus with complication, with long-term current use of insulin ([facility]/HCC); Anxiety and depression ([facility]); Fever, unspecified fever causeStart: 12-04-2024 End: 39-07-2149Anquztrdl Result EncounterGeneric External Data ProviderNOWV External Department UnsolicitedStart: 12-04-2024 End: 21-58-9107Lvjeewnoh Result EncounterGeneric External Data ProviderNOWV External Department UnsolicitedStart: 10-27-2024 End: 91-60-3284wgzvdfcrweMSPR AICHHOLZNot AvailableStart: 10-27-2024 End: 23-76-1084Emhhlk outpatient visit 25 minutesMckayla Blas [employer] Work Phone: noMS [facility] FMComment on above:Primary hypertension (CMS/HCC) (Primary Dx); Diabetic polyneuropathy associated with type 2 diabetes mellitus ([facility]/HCC); Chronic diastolic heart failure ([facility]/HCC); Bilateral lower extremity edema; Morbid (severe) obesity due to excess calories ([facility]/HCC); Type 2 diabetes mellitus with complication, with long-term current use of insulin ([facility]/HCC); Anxiety and depression ([facility]/HCC); Cigarette nicotine dependence without complication; Encounter for screening mammogram for malignant neoplasm of breast; Insomnia; Non-seasonal allergic rhinitis, unspecified trigger; Type 2 diabetes mellitus with unspecified complications; Vitamin D deficiency, unspecified; Gastro-esophageal reflux disease without esophagitis; PAD (peripheral artery disease) ([facility]/HCC); Gastroesophageal reflux disease, unspecified whether esophagitis present; Venous ulcer of right leg ([facility]/HCC)Start: 10-21-2024 End: 54-77-8160PvgfydBlcf Aichholz [employer] Work Phone: noms CWM FMComment on above:Chronic obstructive pulmonary disease, unspecifiedStart: 10-08-2024 End: 88-12-0664Dfuszyxit Result EncounterLisa Blas [employer] Work Phone: noms External Department UnsolicitedStart: 10-08-2024 End: 73-41-4946Kwiueufex Result EncounterLisa Blas [employer] Work Phone: noms External Department UnsolicitedStart: 10-08-2024 End: 90-70-0309Froxta outpatient visit 25 Adolfo Souza MD Work [...] of50.0 to 59.9 in adultStart: 10-08-2024 End: 54-66-2891xrwsnrggquLNROA F SABBAGHNot AvailableStart: 08-27-2024 End: 55-27-4722Qdspvp outpatient visit 25 minutesMckayla Wan SCHAEFER Work [...] complication, with long-term current use of insulin ([facility]); Tobacco user; Mixed hyperlipidemia ([facility]); Gout, unspecified cause, unspecified chronicity, unspecified site; Vitamin deficiency; Gastro-esophageal reflux disease without esophagitis; Edema, unspecified; Edema; Hyperlipidemia, unspecified ([facility]); Encounter for smoking cessation counseling; Venous ulcer of right leg ([facility]); Antibiotic-induced yeast infectionStart: 08-27-2024 End: 01-31-4649dfvlnskwfvKDIR AICHHOLZNot AvailableStart: 08-27-2024 End: 50-09-3258Zeeroeooe Result EncounterGeneric External Data ProviderNOMS External Department UnsolicitedStart: 08-27-2024 End: 29-18-0647Qgyqmxmnh Result EncounterGeneric External Data ProviderNOMS External Department UnsolicitedStart: 08-08-2024 End: 99-54-6053ejjqmdidyqTAPVYTriHealth McCullough-[facility] Memorial Hospitaltart: 07-17-2024 End: 08-91-7618CatqxmQmhj Aichholz [employer] Work Phone: noms CWM FMStart: 07-14-2024 End: 11-42-9340Agyjkg outpatient visit [facility] Work Phone: noms CWM FMComment on above:Primary hypertension ([facility]) (Primary Dx); Diabetic polyneuropathy associated with type 2 diabetes mellitus ([facility]); Pulmonary emphysema, unspecified emphysema type ([facility]); Critical limb ischemia of right lower extremity ([facility]); PAD (peripheral artery disease) ([facility]); Gastroesophageal reflux disease, unspecified whether esophagitis present; Bilateral lower extremity edema; Venous ulcer of right leg ([facility]); Type 2 diabetes mellitus with complication, with long-term current use of insulin ([facility]); Tobacco user; Encounter for smoking cessation counseling; Kidney stone; Adrenal mass 1 cm to 4 cm in diameter ([facility]); Radiculopathy, lumbar region; Non-seasonal allergic rhinitis, unspecified trigger; Type 2 diabetes mellitus with unspecified complications ([facility])Start: 07-14-2024 End: 51-64-9171nozvevcyixJGFV AICHHOLZNot AvailableStart: 07-05-2024 End: 55-01-3718FojtazPxzx Chetz [employer] Work Phone: noms [facility] FMComment on above:Bilateral lower extremity edemaStart: 06-11-2024 End: 36-94-0275kiduqrbrwtKxvfzjj R WATERSFacility:EU SanduskyStart: 06-11-2024 End: 09-22-4411Lvwkzpq encounter procedurePanaomy ARAUZ [facility] [place] Start: 05-27-2024 End: 30-47-2562Kftqcx Jack Souza MD Work Phone: noms ENDOCRINOLOGYStart: 05-27-2024 End: 42-24-7995Jrohseyousif Souza MD Work Phone: noms ENDOCRINOLOGYStart: 05-27-2024 End: 19-89-3047dqdmdszzfdDWXMV F SABBAGHNot AvailableStart: 05-27-2024 End: 85-94-9601Flfkdj outpatient visit 25 minutesRain Souza MD Work Phone: noms ENDOCRINOLOGYComment on above:Type 2 diabetes mellitus with hyperglycemia, with long-term current use of insulin (CMS/[facility]) (Primary Dx); Encounter for dietary consultation; Vitamin D deficiency; Primary hypertension (CMS/HCC); Insulin long-term use (CMS/HCC); Hyperlipemia, mixed (CMS/HCC); Microalbuminuria; Class 3 severe obesity due to excess calories with serious comorbidity and body mass index (BMI) of50.0 to 59.9 in adult (CMS/HCC)Start: 05-12-2024 End: 65-43-1341Vpideayly Result EncounterGeneric External Data ProviderNOMS External Department UnsolicitedStart: 05-12-2024 End: 11-07-2417Ynfjucuac Result EncounterGeneric External Data ProviderNOMS External Department UnsolicitedStart: 05-30-4079drbmnlsntmHENPVFUA E SILVIA Facility:EU [place]Start: 04-24-2024 End: 32-91-5182Zitbftsww Result EncounterGeneric External Data ProviderNOMS External Department UnsolicitedStart: 04-24-2024 End: 91-21-6157Lowvnujeq Result EncounterGeneric External Data ProviderNOMS External Department UnsolicitedStart: 04-14-2024 End: 53-99-3698Kqxsxq flowsheetMckayla Blas [employer] Work Phone: noms CWM FMStart: 04-14-2024 End: 80-61-8918Wydfpz flowsheetMckayla Blas [employer] Work Phone: noms CWM FMStart: 04-14-2024 End: 88-42-7282Rdxlyk outpatient visit 25 minutesLisa Blas [employer] Work Phone: noms CWM FMComment on above:Primary [...] Tobacco user; Hyperpigmentation of skinStart: 04-14-2024 End: 24-73-9452afxuqxsolqMJLM JUANJOSEHHOLZNot AvailableStart: 04-05-2024 End: 22-51-1397XeedbzAqru Aichholz [employer] Work Phone: noms CWM FMComment on above:Hyperlipidemia, unspecified (CMS/HCC); Bilateral lower extremity edemaVitamin D deficiency, unspecifiedStart: 08-41-7417Egicqmi encounter procedureRain Souza MD Work Phone: noms HealthcareStart: 12-14-2023 End: 43-60-3364Isdbbdcam Result EncounterLisa Wan [employer] Work Phone: noms External Department UnsolicitedStart: 12-14-2023 End: 92-63-4696Naphdieut Result EncounterLisa Harshadholz [employer] Work Phone: noms External Department UnsolicitedStart: 08-31-2023 End: 09-95-7790Ppmdsjray Result EncounterAmy Cari PA Work Phone: noms External Department UnsolicitedStart: 08-31-2023 End: 88-77-3115Dujvfwejb Result EncounterAmy Cari MAYERS Work Phone: noms External Department UnsolicitedStart: 08-17-2023 RefillLisa Rosenbergz [employer] Work Phone: noms CWM FMComment on above:Vaginal yeast infection (Primary Dx)Start: 27-81-1653HhuwjuRemw Aichdallni [employer] Work Phone: NOFS CWM FMComment on above:Type 2 diabetes mellitus with unspecified complications (CMS/HCC); Edema, unspecified; EdemaStart: 27-15-9235subcmwtwbzWICSSRVZRIWM LAKSHMIPATHY .Facility:R2Fowcb: 12-05-2022 End: 87-65-2578Bvzbbuykiy and management of inpatientJESSICA ALONDRA .Facility:H1 Start: 11-23-2022 End: 58-99-0199pkzufucgtpZQM MCKAYLA AICHHOLZFacility:B1Ftpfz: 11-22-2022 End: 24-57-6524rxkclcuavuPBA MCKAYLA AICHHOLZFacility:X9Vqnag: 11-17-2022 End: 75-12-4644oqlkayekoeYCLABRA HALKER .Facility:A8Uiaqz: 11-15-2022 End: 06-30-9939Hsjmuqd encounter procedureJENNIFER E SILVIA [facility] start: 10-05-2022 End: 68-19-7590ewvlmgxwtzKCBROG DIAB .Facility:W1Yaezv: 09-21-2022 End: 05-80-4908devoqimhkeDOV MCKAYLA BLASFacility:F8Blzrd: 45-91-1457unhqpltedn COMFORT CULLENFacility:E9Sofxt: 08-24-2022 End: 74-25-3223gbdvgnaigmSP CHAPARRO S MORTENSEN .Facility:Z1Gevik: 08-21-2022 End: 36-30-7512wxlqreryjjZSLZU D [facility] Centercility:G9Xenby: 07-27-2022 End: 10-57-9666qujnjlqfngGGBN TAMLYN .Facility:P4Vdjdp: 07-18-2022 End: 83-02-6494tygsyetvktELSF TAMLYN .Facility:Z4Wgclv: 07-18-2022 End: 50-57-7025toaamyfpoiNDMFV D [facility]ENTERFac[facility]:N2Dmhme: 07-06-2022 End: 80-85-8570rdmtkdmrzlCWV MCKAYLA BLASFacility:Q7Mvhll: 05-11-2022 End: 34-76-7052oqwifstllaVFQJ VALENZUELA .Facility:N1Qeymw: 04-25-2022 End: 84-85-4974nayuqmbfcwFG CHAPARRO S MORTENSEN .Facility:V6Kgxpb: 04-20-2022 End: 87-79-4708njyqgvbfbaAUNS VALENZUELA .Facility:Z5Jkbfb: 03-08-2022 End: 82-50-9913yyzotzyteqCyrob Tico Other [employer] Other Start: 27-64-8710Wqwdcl outpatient visit 15 minutes Stephanie QadirFPG NephrologyStart: 03-03-2022 End: 24-51-9721odwhxoklqiZAO MCKAYLA Laucility:Z7Vezro: 02-20-2022 End: 84-85-9635jgqddyyfauZaxnf Tico Other [employer] Other Start: 84-12-2010Pkyznz outpatient new 45 minutesAbdul QadirFPG NephrologyStart: 02-06-2022 End: 91-22-5796Pwexdqq encounter procedureElbert Mahnaz REGLA [facility] Wilfredo start: 01-19-2022 End: 09-32-2206yhwzjtkjcdGYYA SOLIS .Facility:W3Hlwqr: 12-24-2021 End: 40-92-6438lrqdclyqsgJUKPT PARKERFacility:H4Sfnrm: 08-26-2020 End: 88-21-8788Uvscfsm encounter procedureVITHAL SHENDGEFacility:UTMCStart: 10-30-2019 End: 38-39-9799Eorosvcdz department patient visitDONADYA [facility] Hospitaltart: 10-30-2019 End: 24-67-3421Ujenqxfij department patient visitKindred Hospital Dayton Emergency DepartmentStart: 61-94-7144Lgvrhhnfbfts stateAbdul Tico Other rt [employer] Other Procedures DateProcedureProcedure DetailPerforming ClinicianStart: 51-09-5965VF ECHO DOPPLER COMPLETEGeneric External Data ProviderStart: 31-93-0075Ismo bld gluc mntr dev cleared fda spec home useRain Souza MD Work Phone: Start: 70-58-4545GYTBD CULTURE 2Generic External Data ProviderStart: 69-09-6615FYOZJ CULTURE 1Generic External Data ProviderStart: 74-80-6735Gwuk bld gluc mntr dev cleared fda spec home useRain Souza MD Work Phone: Start: 35-31-5618IQW UA (CLEAN/CATCH) MICROSCOPIC IF INDICATELisa Wan [employer] Work Phone: Start: 80-26-2150FGN CBC WITH AUTO DIFFGeneric External Data ProviderStart: 15-14-0547Acpz bld gluc mntr dev cleared fda spec home useRain Souza MD Work Phone: Start: 80-06-9801VN LUMBAR SPINE WO CONGeneric External Data ProviderStart: 32-11-5217ZP ABDOMEN PELVIS W CONGeneric External Data ProviderStart: 65-07-3527ZDT CREATININEGeneric External Data ProviderStart: 28-73-5152GYDGDVHLL BLOOD PRESSUREGeneric External Data ProviderStart: 82-09-4848NP TOMOSYNTHESIS SCREENING Chyna Blas NP Work Phone: Start: 46-61-4651TcxpzryejjhXnyql Sabbagh MD Work Phone: Start: 26-41-0820QBVGT CULTURE 2Generic External Data ProviderStart: 60-29-9343BOQQR CULTURE 1Generic External Data ProviderStart: 92-66-2353UGI 12-LEADAmy Cari MAYERS Work Phone: Start: 65-10-0167KczfdpnsccfMglm Aichholz NP Work Phone: Start: 06-30-2768Pitbspyokye observation [Identifier] in Cervix by Cyto stainMckayla Blas NP Work Phone: H/O: hysterectomyPatrick ARAUZ Laparoscopic cholecystectomyPatrick ARAUZ Operative procedure on footPatrick ARAUZ Plan of Treatment DateCare ActivityDetailAuthorStart: 02-01-2026 End: 61-63-2597Dmamdws encounter procedureNOMS CWM FMStart: 07-21-2026Medicare Annual Wellness (AWV)Medicare Annual Wellness (AWV)NOMS HealthcareStart: 65-32-1771Vxdxq screening for proteinDiabetes: Urine Protein ScreeningNOMS HealthcareStart: 21-95-2897Ztothlyej for malignant neoplasm of colonNOMS HealthcareStart: 03-46-6204Nraueufg screeningDiabetes: Retinopathy ScreeningNOMS HealthcareStart: 05-28-2025 End: 31-78-8481Sqorprh encounter procedureNOMS SH ENDOCRINOLOGYStart: 05-13-2025 Glaucoma screeningDiabetes: Retinopathy ScreeningGARFIELD [facility] HealthcareStart: 32-38-3746Qvkhvlqefs A1c measurementDiabetes: Hemoglobin U6OFKLOSaint Francis Hospital & Health Services Start: 04-29-2025 End: 26-43-9315Funxxwn encounter procedureNOSEILING REG[facility] FMStart: 37-59-7890Dwvrxkwoo vaccinationNOWV HealthcareStart: 01-28-2025 End: 19-07-4865Trzivwa encounter nuoolnyie09/23/2025 10:50 AM EDT Office Visit [facility] [address] [place] [address] Rain Souza MD [address] [place] [address] [facility] ENDOCRINOLOGYStart: 01-26-2025 End: 89-71-2482Khxvebr encounter zoutgwcde15/21/2025 6:00 PM EDT [facility] [address] [place] [address] Mckayla Blas, [employer] [address] [place] [id number] [facility] FMStart: 07-11-2025Medicare Annual Wellness (AWV) Medicare Annual Wellness (AWV)[facility] HealthcareStart: 60-98-7899Qvwdxqybus A1c measurementDiabetes: Hemoglobin X3AGQFISaint Francis Hospital & Health ServicesStart: 12-15-2024 End: [id number] Breast - bilateral ScreeningBilateral screening mammogram Imaging Routine Encounter for screening mammogram for malignant neoplasm of breast Expected: 12/15/2024 (Approximate), Expires: 12/27/2025[facility] Work Phone: Comment on above:Expected: 12/15/2024 (Approximate), Expires: 12/27/2025Start: [id number] for malignant neoplasm of breast MammogramSaint Francis Hospital & Health ServicesStart: 28-05-0799[place] screening for proteinDiabetes: Urine Protein [facility]eningG[facility] HealthcareStart: 10-27-2024 End: 90-99-7156Onmturi encounter dsqulneck38/21/2025 2:00 PM EDT Office Visit [facility] [address] [place] [address] Mckayla Blas NP [address] [place] [address] [facility] FMStart: 10-08-2024 End: 03-90-3516Jerxrfq encounter bqrousyfx03/02/2025 11:20 AM EDT Office Visit [facility] [address] [place] [address] Rain Souza MD [address] [place] [address] [facility]Start: 08-27-2024 End: 02-81-7067Qyqgdgn encounter kyeqxwfri74/19/2025 5:30 PM EST Office Visit [facility] [address] [place] [address] Mckayla Blas, SILVANO [address] [place] [address] [facility] FMStart: 08-27-2024 End: 91-76-938608626591-wywsxmmkyspxjg D3 [Mass/volume] in Serum or PlasmaVitamin D 25 hydroxy Lab Routine Vitamin deficiency Expected: 08/27/2024 (Approximate), Expires: 08/27/2025NOWV HealthcareComment on above:Expected: 08/27/2024 (Approximate), Expires: 08/27/2025Start: 91-67-3112Dpcigargnc A1c measurement Diabetes: Hemoglobin Q5CRSJRWashington County Memorial HospitalStart: 08-27-2024 End: 63-98-4571Dhngbqj function 2000 panel - Serum or PlasmaHepatic function panel Lab Routine Hyperlipidemia, unspecified (CMS/HCC) Expected: 08/27/2024 (Approximate), Expires: 08/27/2025[facility] HealthcareComment on above:Expected: 08/27/2024 (Approximate), Expires: 08/27/2025Start: 08-27-2024 End: 22-29-5884Aztfu 1996 panel - Serum or PlasmaLipid panel Lab Routine Mixed hyperlipidemia ([facility]/HCC) Expected: 08/27/2024 (Approximate), Expires:08/27/2025 [facility] Healthcare Work Phone: Comment on above:Expected: 08/27/2024 (Approximate), Expires: 08/27/2025Start: 08-27-2024 End: 57-35-5537Looesqfrtfdy/Creatinine panel in random UrineMicroalbumin / creatinine, urine ratio Lab Routine Primary hypertension ([facility]) Type 2 diabetes mellitus with complication, with long-term current use of insulin ([facility]) Expected: 08/27/2024 (Approximate), Expires: 08/27/2025[facility] Healthcare Comment on above:Expected: 08/27/2024 (Approximate), Expires: 08/27/2025Start: 08-27-2024 End: 32-39-3798Atfag [Mass/volume] in Serum or PlasmaUric acid Lab Routine Gout, unspecified cause, unspecified chronicity, unspecified site Expected: (Approximate), Expires: 08/27/2025[facility] HealthcareComment on above: Expected: 08/27/2024 (Approximate), Expires: 08/27/2025Start: 08-27-2024 End: 56-15-6235Lkthlitamd complete panel - UrineUrinalysis with reflex microscopic (clean catch) Lab Routine Primary hypertension ([facility]) Type 2 d iabetes mellitus with complication, with long-term current use of insulin ([facility]) Tobacco user Gout, unspecified cause, unspecified chronicity, unspecified site Expected: 08/27/2024 (Approximate), Expires: 08/27/2025[facility] HealthcareComment on above:Expected: 08/27/2024 (Approximate), Expires: 08/27/2025Start: 08-26-2024 End: 41-33-6807Jfwthse encounter ijxracbgn78/18/2025 10:30 AM EST Office Visit [facility] [address] [place] [address] Rain Souza MD [address] [place] [address] [facility]Start: 07-14-2024 End: 36-94-8613Upfqwru encounter lrkoowtdq13/06/2025 6:30 PM EST Office Visit [facility] [address] [place] [address] Mckayla Blas, SILVANO [address] [place] [address] [facility] FMStart: 07-14-2024 End: 68-57-4483Zynnaqt encounter /06/2025 10:10 AM EST Office Visit [facility] [address] [place] [address] Rain Souza MD [address] [place] [address] [facility] ENDOCRINOLOGYStart: 48-32-4502Sdqvjtipa vaccinationInfluenza Vaccine (#1)NOMS HealthcareComment on above:Postponed from 03/09/2024 (Patient Refused)Start: 05-27-2024 End: 19-70-7946Dovzdza encounter rpofljinf41/19/2024 9:50 AM EST Office Visit [facility] [address] [place] [phone] Rain Souza MD [address] [place] [address] [facility] ENDOCRINOLOGYStart: 24-68-3800Ktzpfcdfbj A1c measurementDiabetes: Hemoglobin F9MBDIA HealthcareStart: 05-15-2024 End: 94-97-1921Qjqhq axzshailzdv62/07/2024 Abstract [facility] [address] [place] [address] Rain Souza MD [address] [place] [address] [facility]Start: 05-15-2024 End: 71-45-3133Bpubxch encounter fpqakiuki33/07/2024 11:20 AM EST Office Visit [facility] [address] [place] [address] Rain Souza MD [address] [place] [address] [facility] ENDOCRINOLOGYStart: 04-17-2024 End: 64-77-5042Nyojjrt encounter bilnhdgdw19/10/2024 3:40 PM EDT Office Visit [facility] [address] [place] [address] Mckayla Blas, SILVANO [address] [place] [address] [facility] FMStart: 04-14-2024 End: 02-76-5800Nmvzlqf encounter /07/2024 11:00 AM EDT Office Visit [facility] [address] [place] [address] Mckayla Blas, [employer] [address] [place] [address] ArrivedNOWV CW FMComment on above:ArrivedStart: 03-09-2024 Influenza vaccinationInfluenza Vaccine (#1)NOM[facility] HealthcareStart: 02-19-2024 Hemoglobin A1c measurementDiabetes: Hemoglobin Q3PIGFX HealthcareStart: 99-11-8677Cmwix screening for proteinDiabetes: Urine Protein ScreeningNOWV HealthcareStart: 16-51-9941Sbwujsfwm for malignant neoplasm of breastMammogram [facility] HealthcareStart: 10-15-2023 End: 74-18-4728Vlidoum encounter pdtorsoly76/08/2024 4:30 PM EDT Office Visit [facility] [address] [place] [address] Mckayla Blas, SILVANO [address] [place] [address] [facility] FMStart: 55-12-7830Vfngyzybde A1c measurement Diabetes: Hemoglobin I8XVHRF HealthcareStart: 42-17-5987Xvlrlsfp screening Diabetes: Retinopathy ScreeningNOWV HealthcareStart: 36-81-9195Fbjkjalpb vaccinationFlu vaccine (Season Ended)[facility]: 10-07-2018 Screening for malignant neoplasm of cervixNOWV HealthcareStart: 27-06-3837Amvph panelLipid screenEast [facility]: 25-38-6294Fedycooqn for malignant neoplasm of cervixHPV/CotestNOWV HealthcareStart: 00-88-1750Fpvvxcceb for malignant neoplasm of cervixCervical cancer screenEast [facility]: 27-66-5555FYjF/Tdap/Td vaccine (1 - Tdap)DTaP/Tdap/Td vaccine (1 - Tdap)[facility]: 76-80-0431PGM screeningHIV screenEast [facility]: 02-17-1971Medicare Annual Wellness (AWV)Medicare Annual Wellness (AWV)[facility] HealthcareStart: 65-21-0052Mjxitccar for malignant neoplasm of colonNOMS HealthcareBLOOD CULTURE 1BLOOD CULTURE 1 Lab Routine 12/04/2024 4:44 PM EDTNOWV HealthcareBLOOD CULTURE 2BLOOD CULTURE 2 Lab Routine 12/04/2024 5:28 PM EDTNOWV Healthcare Immunizations Immunization DateImmunizationNotesCare IejmlozdXkqvbvnu05-76-8182uxzrpsmyu, injectable, quadrivalent, contains preservativeMckayla Blas [employer] Work Phone: NOWashington [facility] Memorial HospitalWjxkaruaqv37-09-3495efzqaptzc virus vaccine, unspecified formulationRain Souza MD Work Phone: [facility]01-11-2022SARS-CoV-2 (COVID-19) mRNA BNT-162b2 vaxJENNIFER SILVIA [facility]04-22-2021SARS-CoV-2 (COVID-19) mRNA BNT-162b2 vaxJENNIFER SILVIA [facility]04-02-2021SARS-CoV-2 (COVID-19) mRNA BNT-162b2 vaxJENNIFER SILVIA [facility]10-09-2017influenza virus vaccine, H5N1, A/ (national stockpile)Mckayla Blas [employer] Work Phone: [facility] ServicesNqvmoogiof42-65-5583xfvplrhox virus vaccine, unspecified formulationRain Souza MD Work Phone: NOWashington [facility] Memorial HospitalTdpddxutog87-88-6393mgxhxgonf, unspecified formulationPatrick ARAUZ [facility] [place] 633810-09-2017pneumococcal polysaccharide vaccine, 23 Morgan Souza MD Work Phone: NOWashington [facility] Memorial HospitalMvjohgsoef57-53-5124pzotbjfis virus vaccine, H5N1, A/ (national stockpile)Mckayla Blas [employer] Work Phone: NOWashington [facility] Memorial HospitalEdnmhdlsau21-75-0888yukkefgxt virus vaccine, unspecified formulationRain Souza MD Work Phone: noWashington County Memorial HospitalTfpmthgklx48-41-0348jmjwkjpoy, unspecified formulationPatrick [employer] [facility]10-25-2013influenza virus vaccine, whole virusRain Souza MD Work Phone: NOWashington [facility] Memorial HospitalNzeinptwiy43-08-7693xjondkzfo, injectable, quadrivalent, contains preservativeLisa Aichholz [employer] Work Phone: NOWashington [facility] HospitalVcbljdvbbc57-31-4680vnmzwnuxv, wholePatrick ARAUZ [facility]y07-24-1998measles, mumps and rubella virus vaccineRain Souza MD Work Phone: NOWV Healthcare Payers DatePayer CategoryPayerPolicy [id number] 2024Medicare (Managed Care)[id number] Health [id number] [id number] 2019[place]icaid[place] [id number] 2018-Present [phone] [address] [place] [address]Medicaid [id number] 2013Medicare [id number] 2..840.1.207031.3.57[id number] 2.840.1.168761.3.57[id number] 2.16.840.1.452289.3.57[id number] 2.16.840.1.587139.3.57[id number] 2.16.840.1.481217.3.57[id number] 2..840.1.637556.3.579.[id number] 2..840.1.452400.3.579.2.89919-68-0983Yoniptf2599830 2.840.1.223374.3.579.2.34011-57-6013Ygxwffi3793739 2.840.1.479316.3.579.2.01697-54-6992Mzabxlg9215703 2.840.1.318407.3.579.2.18223-03-3734Ontgxpf7950186 2.840.1.002511.3.579.2.65563-28-9697Fzzasoi3674335 2.840.1.997778.3.579.2.84601-19-4226Hlaasfx0780960 2.840.1.160605.3.579.2.44052-01-0738Jxqzlpc5253286 2..840.1.191954.3.579.2.85916-28-2734Ekkexju1774112 2.840.1.624905.3.579.2.86160-58-8960Hswdxtf7594192 2..840.1.252246.3.579.2.77656-89-0764Ykpfpnd6493973 2.840.1.109117.3.579.2.86485-88-6741Lwkmbnb6221069 2.16.840.1.216646.3.579.2.62630-13-8764Toqnfln2842064 2.840.1.468336.3.579.2.62758-29-7133Byocnun4989200 2.840.1.296115.3.579.2.55986-25-5125Czmvnly0517354 2.840.1.685485.3.579.2.49302-78-0934Bwufgiz4473319 2.840.1.140372.3.579.2.21903-71-8538Kovniqj5661845 2.0.1.709974.3.579.2.68261-07-7832Wgkijlz95632688 2.840.1.293155.3.579.2.190198-68-2435Erztrjv27970436 2.0.1.652558.3.579.2.110518-57-8469Hhbpglc61876779 2..1.930285.3.579.2.983126-64-3528Rrhwpfs5012812 2.840.1.816961.3.579.2.521642-61-7802Hfgaodv1723657 2.0.1.285213.3.579.2.430497-89-2317Nzljlrv9151808 2..1.041248.3.579.2.578927-91-1000Wprwwul5820206 2.0.1.557380.3.579.2.507946-17-3643Wnmnvmm7401477 2.840.1.378043.3.579.2.591734-52-1332Ctishlj2239024 2.840.1.389148.3.579.2.282317-37-7838Qbjrktx09348506 2..840.1.172452.3.579.2.65982-10-1791Jockylh78308236 2..840.1.900220.3.579.2.19966-52-8156Klicrca690766114 2..840.1.321314.3.579.2.85702-80-4254Bhvtvfa844249761 2..840.1.615227.3.579.2.98634-75-4664Yazxtlx772549278 2..840.1.118549.3.579.2.21077-03-2731Noqylbj879830179 2..840.1.590990.3.579.2.60780-08-3656Kqhrajh374710312 2.840.1.209541.3.579.2.00903-45-7491Cgdkjxn204725728 2..840.1.409233.3.579.2.63178-33-1178Yrotfpt085339602 2..840.1.290313.3.579.2.196 [id number] 1960Private Health [id number] 2.0.1.073366.19 [id number] [id number] Health InsuranceSelect Medical Specialty Hospital - [id number] Auto/[id number] Social History DateTypeDetailFacilityStart: 02-17-2014 End: 78-71-8310Qixepnm smoking status NHISCurrent every day smokerMercy Health- [place], [place]Start: 36-75-7485Pwdrmbz of tobacco useCigarette Smoker[facility]: 02-17-2014 End: 85-23-7089Jbeqsqlusd smoked current (pack per day) - ReportedEast [facility] Hospital: 83-31-1886Vwsyfeg intakeCurrent drinker of alcohol (finding)[facility]: 48-98-2036Vvzfcjf CommentRareMSelect Medical Specialty Hospital - [facility], Inc: 14-89-8959Qiw Assigned At BirthNot on fileMackinac Island, KYExposure to SARS-CoV-2 (event)Unable to assessEast [facility] City Hospital: 27-61-6166Ipvndwi smoking statusSmoker (finding)[facility] start: 07-10-2023 End: 06-20-0245Ayt Assigned At BirthFemaleExec[facility] start: 11-15-2022 End: 05-32-6582Philfmb smoking statusHeavy tobacco smoker (finding)[facility] Hospitaltart: 07-10-2023 End: 58-69-5871Chtypot use and exposureSmokeless tobacco non-userNOMS Healthcare Start: 07-10-2023 End: 27-93-6455Tbbddho intakeLifetime non-drinker (finding)[facility] HealthcareWithin the last year, [...] drinks on 1 occasion?Less than monthlyNOMS HealthcareStart: 31-75-7132Alr hard is it for you to pay for the very basics like food, housing, medical care, and heatingNot hard at allGARFIELD MEMORIAL HOSPITAL HealthcareDo you feel stress - tense, [...] from your doctor or pharmacy [SILS]RarelyNOMS HealthcareSexFemale (finding)[facility] Start: 19-76-2240Xmv Assigned At [facility] CoastNEGATED: Highlighted [facility] Medical Equipment Procedure CodeEquipment CodeEquipment Original TextEquipment IdentifierDates [id number]: 01-38-7992QVF TO TEST BLOOD SUGAR 4 TIMES [id number]: 07-07-2024 Functional Status OgvcUifsboxmbcUfcitsOcnvcyyu99-88-9311Dsdndfo Health Questionnaire 2 item (PHQ- 2) [Reported][facility] ServicesNnxzdskrqo15-96-8527Okjeuof falling or staying asleep, or sleeping too muchNot at all 01/26/2025 4:13 PM EDT Mychart, Generic Not at all [facility] ServicesGrcctsadph38-14-7545Cfivhev tired or having little energyNot at all 01/26/2025 4:13 PM EDT Mychart, Generic Not at allSaint Francis Hospital & Health ServicesDhpmqeffsm42-86-4983Gvye appetite or overeatingNot at all 01/26/2025 4:13 PM EDT Mychart, Generic Not at [facility] CenterHayksewdqi72-58-4513Zuukxym bad about yourself-or that you are a failure or have let yourself or your family downNot at all 01/26/2025 4:13 PM EDT Mychart, Generic Not at allSaint Francis Hospital & Health ServicesAseghcadys13-65-3831Tlygfrr concentrating on things, such as reading the newspaper or watching televisionNot at all 01/26/2025 4:13 PM EDT Mychart, Generic Not at [facility] CenterRtcmvnxgsx95-00-6544 Moving or speaking so slowly that other people could have noticed. Or the opposite - being so fidgety or restless that you have been moving around a lot more than usualNot at all 01/26/2025 4:13 PM EDT Mychart, Generic Not at [facility] CenterYrpwxicwua67-60-6253Pskrtnoj that you would be better off , or of hurting yourself in some wayNot at all 01/26/2025 4:13 PM EDT Mychart, Generic Not at [facility] CenterWtgxlpqimx12-58-1180Mwdci score [AUDIT-C]1 08/26/2024 6:13 PM EST Mychart, GenericSaint Francis Hospital & Health ServicesOizatlnmrn77-94-1090Qqk often do you have a drink containing alcohol?Monthly or less 08/26/2024 6:13 PM EST Mychart, Generic Monthly or lessSaint Francis Hospital & Health ServicesGozuiotbtq55-69-7252Gug many standard drinks containing alcohol do you have on a typical day?1 or 2 08/26/2024 6:13 PM EST Mychart, Generic 1 or 2NOMS Gowlysdumk54-85-6341Gdb often do you have 6 or more drinks on 1 occasion?Never 08/26/2024 6:13 PM EST Mychart, Generic NeverSaint Francis Hospital & Health Services 50-88-6147Gmuwyyyoks StatusN/AExecutive [facility] of [facility]07-11-2024How difficult have these problems made it for you to do your work, take care of things at home, or get along with other people?Not difficult at all 01/17/2024 10:08 AM EDT Marilyn Rolon MA Not difficult at [facility] CenterAgkpazyyxb83-92-9473Wmzhvqh Health Questionnaire 2 item (PHQ-2) [Reported][facility] Health ServicesAepecohwlf45-24-7748Flwyamn Health Questionnaire 2 item (PHQ-2) [Reported][facility] ServicesKnwxjnqwpy69-15-1455Jisjvmrxed StatusN/AExec[facility] of [facility] Dmuyrhos68-37-1577Poxxstndjz StatusN/AExec[facility] Clinical Notes 01-19-2022 to 04-06-2025 Note Date & TxksCpvuOrqtmqxm66-82-4286 Evaluation note* Diagnosis Onset Date Resolution Status [...] 2024 5:50pmVenous insufficiencyacuteOctober 2024 5:50pm [facility] Work Phone: [phone] 306-966907-30-2025 NotePlease let her know her ECHO showed some improvement in the left side wall thickness, it was severely enlarged, now it is moderate. Important for good BP control to continue to improve this. Everything else looks good. Follow-up as planned in 6 months. Thanks![facility]07-24-2025 History of Present illness Narrative* Rain [...] 96, on lantus 58 units bid, lispro 4-30-29kucua plus ISS, Trulicity 4.5 mg weekly. meter give us error during download IM 03/2022 follow up visit on 03/14/2022, A1c in the office 9.4, bg 142, on lantus 58 units bid, lispro 2-35-57yrhgf plus ISS, Trulicity 4.5 mg weekly. lab [...] 25 mg, Oral, 2 times daily HYDROcodone-acetaminophen ([place]) 5-325 MG tablet 1 tablet, 3 times [...] 09/17/2023 Angiomyolipoma Anxiety and depression 07/10/2023 Asthma ([facility]) 07/10/2023 Body mass index (BMI) 50.0-59.9, adult ([facility]) Cellulitis of left lower extremity Cervical cancer ([facility]) 09/17/2023 Chronic pain of both knees 09/17/2023 COPD (chronic obstructive pulmonary disease) ([facility]) 07/10/2023 COPD exacerbation ([facility]) 09/17/2023 Decreased functional mobility 09/17/2023 Diabetic neuropathy ([facility]) 07/10/2023 Dietary counseling and surveillance Edema 07/10/2023 Elevated sed rate Elevated WBC count Essential (primary) hypertension GERD (gastroesophageal reflux disease) 09/17/2023 Hyperlipidemia 09/17/2023 Hypertension 07/10/2023 Insomnia 09/17/2023 long term (current) use of insulin ([facility]) Lower extremity edema 09/17/2023 Mixed hyperlipidemia Morbid (severe) obesity due to excess calories ([facility]) Obstructive sleep apnea 07/10/2023 PAD (peripheral artery disease) 09/17/2023 Pancreatitis ([facility]) 09/17/2023 Pneumonia 09/17/2023 Proteinuria, unspecified Pulmonary hypertension ([facility]) 09/17/2023 Radiculopathy, lumbar region 09/17/2023 Tobacco user 09/17/2023 Type 2 diabetes mellitus with complication, with long-term current use of insulin ([facility]) 07/10/2023 Unilateral primary osteoarthritis, right hip 09/17/2023 [...] D deficiency Primary hypertension Insulin long-term use ([facility]) Hyperlipemia, mixed Microalbuminuria Class 3 severe obesity due to excess calories with serious comorbidity and body mass index (BMI) of50.0 to 59.9 in adult ([facility]) Diet and exercise reviewed with the patient Follow up in about 4 months (around 06/01/2025). 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 * Mckayla Blas NP [...] 25 mg, Oral, 2 times daily HYDROcodone-acetaminophen ([place]) 5-325 MG tablet 1 tablet, 3 times [...] 09/17/2023 Angiomyolipoma Anxiety and depression 07/10/2023 Asthma ([facility]) 07/10/2023 Body mass index (BMI) 50.0-59.9, adult ([facility]) Cellulitis of left lower extremity Cervical cancer ([facility]) 09/17/2023 Chronic pain of both knees 09/17/2023 COPD (chronic obstructive pulmonary disease) ([facility]) 07/10/2023 COPD exacerbation ([facility]) 09/17/2023 Decreased functional mobility 09/17/2023 Diabetic neuropathy ([facility]) 07/10/2023 Dietary counseling and surveillance Edema 07/10/2023 Elevated sed rate Elevated WBC count Essential (primary) hypertension GERD (gastroesophageal reflux disease) 09/17/2023 Hyperlipidemia 09/17/2023 Hypertension 07/10/2023 Insomnia 09/17/2023 long term (current) use of insulin ([facility]) Lower extremity edema 09/17/2023 Mixed hyperlipidemia Morbid (severe) obesity due to excess calories ([facility]) Obstructive sleep apnea 07/10/2023 PAD (peripheral artery disease) 09/17/2023 Pancreatitis ([facility]) 09/17/2023 Pneumonia 09/17/2023 Proteinuria, unspecified Pulmonary hypertension ([facility]) 09/17/2023 Radiculopathy, lumbar region 09/17/2023 Tobacco user 09/17/2023 Type 2 diabetes mellitus with complication, with long-term current use of insulin ([facility]) 07/10/2023 Unilateral primary osteoarthritis, right hip 09/17/2023 [...] cessation Current meds: duoneb, albuterol, daliresp, Asthma ([facility]) Current meds: albuterol, duoneb, 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 Hypertension Please check blood pressure daily and record DASH diet Limit caffeine Take medication as directed Contact office if chest pain, pressure, dizziness, shortness of breath, swelling legs Recommend slow position changes Current meds: hydralazine, lisinopril, Relevant Medications hydrALAZINE (Apresoline) 25 MG tablet lisinopril 20 MG tablet Type 2 diabetes mellitus with complication, with long-term current use of insulin ([facility]) Check blood sugars daily, notify if <70 [...] MG tablet Pulmonary hypertension (HCC) Has seen [facility] Cardiology Hyperlipidemia On statin therapy [...] Morbid (severe) obesity due to excess calories ([facility]) Discussed with patient their BMI (actual, verses [...] EDTAssociated Problem(s): Pulmonary hypertension (HCC) Has seen [facility] Cardiology * Mckayla Blas NP [...] on a yearly basis documented in this encounterSaint Francis Hospital & Health [id number] Instructions* Patient Instructions* Mckayla Blas NP - 01/26/2025 6:00 PM EDT Please call the [facility] to schedule your mammogram: [phone] documented in this encounterSaint Francis Hospital & Health [id number] NoteCardiovascular Medicine [facility] SUBJECTIVE Chief Complaint Patient presents with Congestive Heart Failure Hypertension Hyperlipidemia Mitzi Macias is a 54 y.o. female here for follow-up. PMHx: HFpEF, HTN, HLD, DM, longstanding heavy smoker, COPD, DANIEL, morbid obesity HPI 01/06/2025 Since last seen she was admitted to [facility] for AMS on 12/05/2024. She was [...] of both lower extremities with ulcer (CMS/HCC) long term current use of inhaled steroid Vitamin D deficiency, unspecified Vitamin deficiency Past Medical History: Diagnosis Date COPD (chronic obstructive pulmonary disease) (CMS/HCC) Diabetes mellitus ([facility]) Hyperlipidemia Hypertension Sleep apnea Family History Problem [...] , Rfl: ergocalciferol (Vitamin D-2) 1.25 MG (98092 Units) capsule, Take 1.25 mg by mouth., [...] and at bedtime., Disp: , Rfl: HYDROcodone-acetaminophen ([place]) 5-325 mg tablet, TAKE 1 TABLET BY MOUTH THREE TIMES A DAY NEEDED FOR PAIN MUST LAST 30 DAYS, Disp: , Rfl: insulin aspart (NovoLOG) 100 unit/mL (3 mL) injection pen, Novolog Flexpen U-100 Insulin aspart 100 unit/mL (3 mL) subcutaneous, Disp: , Rfl: insulin glargine (Lantus Solostar U-100 Insulin) 100 unit/mL (3 mL) injection pen (more content not included)...[facility]07-01-2025 NotePatient is here today for a [...] and weight gain. Cardiovascular: Positive for leg swelling.[facility] 12-09-2024 History of Present illness Narrative* [...] bad light. She was ultimately taken to [facility] ER, no tox screen was done [...] 25 mg, Oral, 2 times daily HYDROcodone-acetaminophen ([place]) 5-325 MG tablet 1 tablet, 3 times [...] CT Albuminuria 09/17/2023 Angiomyolipoma Anxiety and depression ([facility]) 07/10/2023 Asthma 07/10/2023 Body mass index (BMI) 50.0-59.9, adult ([facility] Cellulitis of left lower extremity Cervical cancer ([facility]) 09/17/2023 Chronic pain of both knees 09/17/2023 COPD (chronic obstructive pulmonary disease) ([facility]) 07/10/2023 COPD exacerbation ([facility]) 09/17/2023 Decreased functional mobility 09/17/2023 Diabetic neuropathy ([facility]) 07/10/2023 Dietary counseling and surveillance Edema 07/10/2023 Elevated sed rate Elevated WBC count Essential (primary) hypertension ([facility]) GERD (gastroesophageal reflux disease) 09/17/2023 Hyperlipidemia ([facility]) 09/17/2023 Hypertension ([facility]) 07/10/2023 Insomnia 09/17/2023 long term (current) use of insulin ([facility] Lower extremity edema 09/17/2023 Mixed hyperlipidemia ([facility]) Morbid (severe) obesity due to excess calories ([facility]) Obstructive sleep apnea 07/10/2023 PAD (peripheral artery disease) ([facility]) 09/17/2023 Pancreatitis 09/17/2023 Pneumonia 09/17/2023 Proteinuria, unspecified Pulmonary hypertension ([facility]) 09/17/2023 Radiculopathy, lumbar region 09/17/2023 Tobacco user 09/17/2023 Type 2 diabetes mellitus with complication, with long-term current use of insulin ([facility]) 07/10/2023 Unilateral primary osteoarthritis, right hip 09/17/2023 [...] Problem List Items Addressed This Visit Hypertension ([facility]) Please check blood pressure daily and record DASH diet Limit caffeine Take medication as directed Contact office if chest pain, pressure, dizziness, shortness of breath, swelling legs Recommend slow position changes Current meds: hydralazine, lisinopril, Type 2 diabetes mellitus with complication, with long-term current use of insulin ([facility]) Check blood sugars daily, notify if <70 [...] secondary to her steroids Anxiety and depression ([facility]) Current meds: elavil, duloxtine, COPD exacerbation ([facility]) Recent ER visit for unresponsiveness , found to have fever and elevated WBC Sent home with steroids and atb Breathing is better and she feels back to her normal baseline Does have home O2, she is not wearing this today Pulmonary hypertension ([facility]) Has seen [facility] Cardiology Morbid (severe) obesity due to excess calories ([facility]) Discussed with patient their BMI (actual, verses [...] EDTAssociated Problem(s): Pulmonary hypertension (CMS/HCC) Has seen [facility] Cardiology * Mckayla Blas NP [...] not wearing this today documented in this encounterSaint Francis Hospital & Health [id number] Instructions* Patient Instructions* Mckayla Blas NP - 12/09/2024 10:00 AM EDT Keep appt with wound care today Keep fu with me, sooner if needed documented in this encounterSaint Francis Hospital & Health [id number] History of Present illness Narrative* Mckayla Blas [...] 25 mg, Oral, 2 times daily HYDROcodone-acetaminophen ([place]) 5-325 MG tablet 1 tablet, 3 times [...] CT Albuminuria 09/17/2023 Angiomyolipoma Anxiety and depression ([facility]) 07/10/2023 Asthma 07/10/2023 Body mass index (BMI) 50.0-59.9, adult ([facility]) Cellulitis of left lower extremity Cervical cancer ([facility]) 09/17/2023 Chronic pain of both knees 09/17/2023 COPD (chronic obstructive pulmonary disease) ([facility]) 07/10/2023 COPD exacerbation ([facility]) 09/17/2023 Decreased functional mobility 09/17/2023 Diabetic neuropathy ([facility]) 07/10/2023 Dietary counseling and surveillance Edema 07/10/2023 Elevated sed rate Elevated WBC count Essential (primary) hypertension ([facility]) GERD (gastroesophageal reflux disease) 09/17/2023 Hyperlipidemia ([facility]) 09/17/2023 Hypertension ([facility]) 07/10/2023 Insomnia 09/17/2023 long term (current) use of insulin ([facility] Lower extremity edema 09/17/2023 Mixed hyperlipidemia ([facility]) Morbid (severe) obesity due to excess calories ([facility]) Obstructive sleep apnea 07/10/2023 PAD (peripheral artery disease) ([facility]) 09/17/2023 Pancreatitis 09/17/2023 Pneumonia 09/17/2023 Proteinuria, unspecified Pulmonary hypertension ([facility]) 09/17/2023 Radiculopathy, lumbar region 09/17/2023 Tobacco user 09/17/2023 Type 2 diabetes mellitus with complication, with long-term current use of insulin ([facility]) 07/10/2023 Unilateral primary osteoarthritis, right hip 09/17/2023 [...] List Items Addressed This Visit Diabetic neuropathy ([facility]) - Primary Continue with cintia hudson mgmt is prescribing OARRS reviewed Fu in 3 months Goal: tighter glucose control, this has been improving, latest A1c is 7.4%!!! Hypertension ([facility]) Please check blood pressure daily and record DASH diet Limit caffeine Take medication as directed Contact office if chest pain, pressure, dizziness, shortness of breath, swelling legs Recommend slow position changes Current meds: hydralazine, lisinopril, Relevant Medications hydrALAZINE (Apresoline) 25 MG tablet lisinopril 20 MG tablet Type 2 diabetes mellitus with complication, with long-term current use of insulin ([facility]) Check blood sugars daily, notify if <70 [...] 81 MG chewable tablet Anxiety and depression ([facility]) Current meds: elavil, duloxtine, Relevant Medications DULoxetine (Cymbalta) [address] capsule Bilateral lower extremity edema Limit sodium , elevate legs, furosemide Relevant Medications furosemide (Lasix) 20 MG tablet potassium chloride ER (Micro-K) 10 MEQ ER capsule furosemide (Lasix) 40 MG tablet Insomnia Relevant Medications amitriptyline (Elavil) 25 MG tablet PAD (peripheral artery disease) ([facility]) Asa, statin Quit smoking BP and DM [...] Relevant Medications ergocalciferol (Vitamin D2) 1.25 MG (80038 UT) capsule Gastro-esophageal reflux disease without esophagitis [...] complication, with long-term current use of insulin ([facility]) Check blood sugars daily, notify if <70 [...] Morbid (severe) obesity due to excess calories ([facility]) Discussed with patient their BMI (actual, verses [...] latest A1c is 7.4%!!! documented in this encounterCynthia Ville [id number] Instructions* Patient Instructions* Mckayla Blas NP - 10/27/2024 2:00 PM EDT No dose changes in meds You will be due for mammogram I will send order to [facility], they should call you to schedule If no call, please call [phone] ext [phone] documented in this encounterCynthia [place]ille [id number] History of Present illness Narrative* Rain Souza [...] 96, on lantus 58 units bid, lispro [id number] plus ISS, Trulicity 4.5 mg weekly. meter give us error during download IM 03/2022 follow up visit on 03/14/2022, A1c in the office 9.4, bg 142, on lantus 58 units bid, lispro 8-77-47ished plus ISS, Trulicity 4.5 mg weekly. lab [...] or chew. ergocalciferol (Vitamin D2) 1.25 MG (43785 UT) capsule TAKE 1 CAPSULE BY MOUTH [...] 25 mg, Oral, 2 times daily HYDROcodone-acetaminophen ([place]) 5-325 MG tablet 1 tablet, 3 times [...] CT Albuminuria 09/17/2023 Angiomyolipoma Anxiety and depression ([facility]) 07/10/2023 Asthma ([facility]) 07/10/2023 Body mass index (BMI) 50.0-59.9, adult ([facility]) Cellulitis of left lower extremity Cervical cancer ([facility]) 09/17/2023 Chronic pain of both knees 09/17/2023 COPD (chronic obstructive pulmonary disease) ([facility] 07/10/2023 COPD exacerbation ([facility]) 09/17/2023 Decreased functional mobility 09/17/2023 Diabetic neuropathy ([facility]) 07/10/2023 Dietary counseling and surveillance Edema 07/10/2023 Elevated sed rate Elevated WBC count Essential (primary) hypertension ([facility]) GERD (gastroesophageal reflux disease) 09/17/2023 Hyperlipidemia ([facility]) 09/17/2023 Hypertension ([facility]) 07/10/2023 Insomnia 09/17/2023 long term (current) use of insulin ([facility]) Lower extremity edema 09/17/2023 Mixed hyperlipidemia [facility] Morbid (severe) obesity due to excess calories ([facility] Obstructive sleep apnea 07/10/2023 PAD (peripheral artery disease) ([facility]) 09/17/2023 Pancreatitis 09/17/2023 Pneumonia 09/17/2023 Proteinuria, unspecified Pulmonary hypertension ([facility]) 09/17/2023 Radiculopathy, lumbar region 09/17/2023 Tobacco user 09/17/2023 Type 2 diabetes mellitus with complication, with long-term current use of insulin ([facility]) 07/10/2023 Unilateral primary osteoarthritis, right hip 09/17/2023 [...] hyperglycemia, with long-term current use of insulin ([facility]) - POCT glucose manually resulted - POCT [...] 4 months (around 02/07/2025). documented in this encounterSaint Francis Hospital & Health [id number] History of Present illness Narrative* Mckayla Blas [...] or chew. ergocalciferol (Vitamin D2) 1.25 MG (13734 UT) capsule TAKE 1 CAPSULE BY MOUTH [...] 25 mg, Oral, 2 times daily HYDROcodone-acetaminophen ([place]) 5-325 MG tablet 1 tablet, 3 times [...] CT Albuminuria 09/17/2023 Angiomyolipoma Anxiety and depression ([facility]) 07/10/2023 Asthma ([facility]) 07/10/2023 Body mass index (BMI) 50.0-59.9, adult ([facility]) Cellulitis of left lower extremity Cervical cancer ([facility]) 09/17/2023 Chronic pain of both knees 09/17/2023 COPD (chronic obstructive pulmonary disease) ([facility]) 07/10/2023 COPD exacerbation ([facility]) 09/17/2023 Decreased functional mobility 09/17/2023 Diabetic neuropathy ([facility]) 07/10/2023 Dietary counseling and surveillance Edema 07/10/2023 Elevated sed rate Elevated WBC count Essential (primary) hypertension ([facility]) GERD (gastroesophageal reflux disease) 09/17/2023 Hyperlipidemia ([facility]) 09/17/2023 Hypertension ([facility]) 07/10/2023 Insomnia 09/17/2023 residential (current) use of insulin ([facility]) Lower extremity edema 09/17/2023 Mixed hyperlipidemia ([facility]) Morbid (severe) obesity due to excess calories ([facility]) Obstructive sleep apnea 07/10/2023 PAD (peripheral artery disease) ([facility]) 09/17/2023 Pancreatitis 09/17/2023 Pneumonia 09/17/2023 Proteinuria, unspecified Pulmonary hypertension ([facility]) 09/17/2023 Radiculopathy, lumbar region 09/17/2023 Tobacco user 09/17/2023 Type 2 diabetes mellitus with complication, with long-term current use of insulin ([facility]) 07/10/2023 Unilateral primary osteoarthritis, right hip 09/17/2023 [...] List Items Addressed This Visit Diabetic neuropathy ([facility]) Continue with cintia hudson mgmt is prescribing OARRS reviewed Fu in 3 months Goal: tighter glucose control Hypertension ([facility]) Please check blood pressure daily and record [...] complication, with long-term current use of insulin ([facility]) Check blood sugars daily, notify if <70 [...] / creatinine, urine ratio Anxiety and depression ([facility]) - Primary Current meds: elavil, duloxtine, PHQ [...] PPI Malignant neoplasm of cervix uteri, unspecified ([facility]) Had in the past, had hysterectomy Tobacco user The patient has been advised of the risks of continued smoking: stroke, PR, all forms of cancer, lung disease, and [...] of the risks of continued smoking: stroke, PR, all forms of cancer, lung disease, and [...] Asthma (CMS/HCC) Current meds: albuterol, duoneb, 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 Subjective Mitzi Macias is a 53 y.o. year old female patient being seen for follow-up on diastolic heart failure, shortness of breath and hypertension Patient Active Problem List Diagnosis Abdominal pannus Adrenal mass 1 cm to 4 cm in diameter ([facility]) Albuminuria RAGHU positive Anxiety and depression Arthritis Asthma Bilateral lower extremity edema BMI 50.0-59.9, adult ([facility]) Candidiasis of breast Cardiomegaly Cervical cancer ([facility]) Chronic pain of both knees Closed fracture of upper end of humerus Acute respiratory distress syndrome ([facility]) Decreased functional mobility Diabetic neuropathy ([facility]) Easy bruising GERD (gastroesophageal reflux disease) Gout Headache Hyperlipidemia Hypertension Insomnia Kidney stone Left flank pain Mixed incontinence Class 3 severe obesity with serious comorbidity and body mass index (BMI) of 50.0 to 59.9 in adult ([facility]) Non-seasonal allergic rhinitis Obstructive sleep apnea Other chronic pain PAD (peripheral artery disease) ([facility]) Pneumonia Encounter for screening mammogram for malignant neoplasm of breast Pulmonary hypertension ([facility]) Radiculopathy, lumbar region Current smoker Type 2 diabetes mellitus with complication, with long-term current use of insulin ([facility]) Unilateral primary osteoarthritis, right hip Vaginal yeast infection Venous insufficiency Bad odor of urine Critical limb ischemia of right lower extremity ([facility]) Hyperpigmentation of skin 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 2 diabetes mellitus ([facility]) Myelolipoma of adrenal gland Venous ulcer of right leg ([facility]) HPI Patient was has history of chronic [...] Diagnosis Date COPD (chronic obstructive pulmonary disease) ([facility]) Diabetes mellitus ([facility]) Hyperlipidemia Hypertension Sleep apnea Past Surgical History: [...] , Rfl: ergocalciferol (Vitamin D-2) 1.25 MG (09299 Units) capsule, Take 1.25 mg by mouth., [...] and at bedtime., Disp: , Rfl: HYDROcodone-acetaminophen ([place]) 5-325 mg tablet, TAKE 1 TABLET BY [...] SUBCUTANEOUSLY TWICE DAILY, Disp: (more content not included)...[facility]01-[facility] History of Present illness Narrative* Mckayla [...] blood pressure and sugar control * Mckayla Blas NP - 07/14/2024 6:30 PM EST Images from [...] or chew. ergocalciferol (Vitamin D2) 1.25 MG (39112 UT) capsule TAKE 1 CAPSULE BY MOUTH ONE TIME PER WEEK furosemide (LASIX) 40 mg, Oral, Daily furosemide (LASIX) 20 mg, Oral, Daily PRN, Take in the afternoon as needed hydrALAZINE (APRESOLINE) 25 mg, Oral, 2 times daily HYDROcodone-acetaminophen ([place]) 5-325 MG tablet 1 tablet, 3 times [...] CT Albuminuria 09/17/2023 Angiomyolipoma Anxiety and depression ([facility]) 07/10/2023 Asthma ([facility]) 07/10/2023 Body mass index (BMI) 50.0-59.9, adult ([facility]) Cellulitis of left lower extremity Cervical cancer ([facility]) 09/17/2023 Chronic pain of both knees 09/17/2023 COPD (chronic obstructive pulmonary disease) ([facility]) 07/10/2023 COPD exacerbation ([facility]) 09/17/2023 Decreased functional mobility 09/17/2023 Diabetic neuropathy ([facility]) 07/10/2023 Dietary counseling and surveillance Edema 07/10/2023 Elevated sed rate Elevated WBC count Essential (primary) hypertension ([facility]) GERD (gastroesophageal reflux disease) 09/17/2023 Hyperlipidemia ([facility]) 09/17/2023 Hypertension ([facility]) 07/10/2023 Insomnia 09/17/2023 long term (current) use of insulin ([facility]) Lower extremity edema 09/17/2023 Mixed hyperlipidemia ([facility]) Morbid (severe) obesity due to excess calories ([facility]) Obstructive sleep apnea 07/10/2023 PAD (peripheral artery disease) ([facility]) 09/17/2023 Pancreatitis 09/17/2023 Pneumonia 09/17/2023 Proteinuria, unspecified Pulmonary hypertension ([facility]) 09/17/2023 Radiculopathy, lumbar region 09/17/2023 Tobacco user 09/17/2023 Type 2 diabetes mellitus with complication, with long-term current use of insulin ([facility]) 07/10/2023 Unilateral primary osteoarthritis, right hip 09/17/2023 [...] List Items Addressed This Visit Diabetic neuropathy ([facility]) Continue with lyrica OARRS reviewed Fu in 3 months COPD (chronic obstructive pulmonary disease) ([facility]) Stable at this time, no changes in meds Encouraged smoking cessation Cont with dr Yañez Hypertension ([facility]) - Primary Please check blood pressure daily and record DASH diet Limit caffeine Take medication as directed Contact office if chest pain, pressure, dizziness, shortness of breath, swelling legs Recommend slow position changes Current meds: hydralazine, lisinopril, Type 2 diabetes mellitus with complication, with long-term current use of insulin ([facility]) Check blood sugars daily, notify if <70 [...] take over prescribing PAD (peripheral artery disease) ([facility]) Asa, statin Quit smoking BP and DM [...] of the risks of continued smoking: stroke, PR, all forms of cancer, lung disease, and [...] of the risks of continued smoking: stroke, PR, all forms of cancer, lung disease, and [...] complication, with long-term current use of insulin ([facility]) Check blood sugars daily, notify if <70 [...] Fu in 3 months documented in this encounterSaint Francis Hospital & Health [id number] Hospital Discharge instructions Patient Education 06/11/2024 10:44:08 [...] require a prescription. You can also purchase [id number] medicines. Medicines may have nicotine in them [...] and encouragement. Call telephone quitlines, such as 5-196-VVQB-NOW, reach out to support groups, or work [...] provider. Document Revised: 06/16/2022 Document Reviewed: 06/16/2022 [employer] Patient Education 2023 [employer] 06/11/2024 10:39:22 Dietary Guidelines to Help [...] include: ?8 oz (237 mL) of milk, zgemvtv-ammgpsewnvxl-yylvh milk, and calcium- fortifiedfruit juice. Calcium-fortified means [...] ?Spinach (cooked), rhubarb, beets, sweet potatoes, and Libyan chard. ?Peanuts. ?Potato chips, german fries, and baked potatoes with skin on. ?Nuts and nut products. ?Chocolate. If you regularly take a diuretic medicine, make sure to eat at least 1 or 2 servings of fruits or vegetables that are high in potassium each day. These include: ?Avocado. ?Banana. ?[place], prune, carrot, or tomato juice. ?Baked potato. [...] magnesium, fish oil, or vitamin B6. Take aaju-dsj-kfkcheh and prescription medicines only as told by [...] Casseroles. Pizza. Lasagna. Frozen meals. Potato chips. Kosovan fries. The items listed above may not [...] Document Reviewed: 10/05/2022 Elsevier Patient Education 2023 [employer]. Follow Up Care 05/06/2024 08:24:56 With:REGLA PHIPPS, Elbert Joya, GEMA Address: [facility] [address] [place] [address]- When: Unknown [facility] Ghada 12-04-2024 NotePatient Education Nephrology Dietary [...] ? 8 oz (237 mL) of milk, sobzriq-itoqpjlcgfph-tisfn milk, and calcium- fortifiedfruit juice. Calcium-fortified means [...] Spinach (cooked), rhubarb, beets, sweet potatoes, and Libyan chard. ? Peanuts. ? Potato chips, german fries, and baked potatoes with skin on. ? Nuts and nut products. ? Chocolate. ??? If you regularly take a diuretic medicine, make sure to eat at least 1 or 2 servings of fruits or vegetables that are high in potassium each day. These include: ? Avocado. ? Banana. ? [place], prune, carrot, or tomato juice. ? Baked [...] fish oil, or vitamin B6. ??? Take ytrn-agq-ujjummh and prescription medicines only as told by your health (more content not included)...[facility]11-19-2024 History of Present illness Narrative* Rain [...] 96, on lantus 58 units bid, lispro [id number] plus ISS, Trulicity 4.5 mg weekly. meter give us error during download IM 03/2022 follow up visit on 03/14/2022, A1c in the office 9.4, bg 142, on lantus 58 units bid, lispro 8-43-24sqead plus ISS, Trulicity 4.5 mg weekly. lab [...] or chew. ergocalciferol (Vitamin D2) 1.25 MG (83151 UT) capsule TAKE 1 CAPSULE BY MOUTH ONE TIME PER WEEK furosemide (LASIX) 20 mg, Oral, Daily PRN, Take in the afternoon as needed furosemide (LASIX) 40 mg, Oral, Daily Glucose Blood (ACCU-CHEK JAQUI PLUS ) 4 times daily hydrALAZINE (APRESOLINE) 25 mg, Oral, 2 times daily HYDROcodone-acetaminophen ([place]) 5-325 MG tablet 1 tablet, 3 times [...] X 42 tablet therapy pack TAKED DIRECTED BYCOX BRANSON TWICE DAILY ALLERGIES: No Known Allergies Past Medical History: Diagnosis Date Abnormal chest CT Albuminuria 09/17/2023 Angiomyolipoma Anxiety and depression ([facility] 07/10/2023 Asthma ([facility]) 07/10/2023 Body mass index (BMI) 50.0-59.9, adult ([facility]) Cellulitis of left lower extremity Cervical cancer ([facility]) 09/17/2023 Chronic pain of both knees 09/17/2023 COPD (chronic obstructive pulmonary disease) ([facility]) 07/10/2023 COPD exacerbation ([facility]) 09/17/2023 Decreased functional mobility 09/17/2023 Diabetic neuropathy ([facility]) 07/10/2023 Dietary counseling and surveillance Edema 07/10/2023 Elevated sed rate Elevated WBC count GERD (gastroesophageal reflux disease) 09/17/2023 Hyperlipidemia ([facility]) 09/17/2023 Hypertension ([facility]) 07/10/2023 Insomnia 09/17/2023 long term (current) use of insulin ([facility]) Lower extremity edema 09/17/2023 Morbid (severe) obesity due to excess calories ([facility]) Obstructive sleep apnea 07/10/2023 PAD (peripheral artery disease) ([facility]) 09/17/2023 Pancreatitis 09/17/2023 Pneumonia 09/17/2023 Proteinuria, unspecified Pulmonary hypertension ([facility]) 09/17/2023 Radiculopathy, lumbar region 09/17/2023 Tobacco user 09/17/2023 Type 2 diabetes mellitus with complication, with long-term current use of insulin ([facility]) 07/10/2023 Unilateral primary osteoarthritis, right hip 09/17/2023 [...] hyperglycemia, with long-term current use of insulin ([facility]) - POCT glucose manually resulted - POCT glycosylated hemoglobin (Hb A1C) docked device We will continue with Lantus 58, lispro 02/16/12 according to meal size, Mounjaro 15 mg once weekly, Farxiga 5 mg once a day Encounter for dietary consultation Vitamin D deficiency Primary hypertension ([facility]) To follow with her PCP Insulin long-term use ([facility]) Hyperlipemia, mixed ([facility]) Continue with Zocor 10 mg once daily Microalbuminuria Class 3 severe obesity due to excess calories with serious comorbidity and body mass index (BMI) of50.0 to 59.9 in adult ([facility]) Diet and exercise reviewed with the patient Follow up in about 3 months (around 08/27/2024). documented in this encounterSaint Francis Hospital & Health [id number] History of Present illness Narrative* Mckayla Blas NP - 04/14/2024 11:45 AM EDTAssociated Problem(s): Hyperpigmentation of skin Will try cerevue ointment to see if helps * Mckayla Blas NP - 04/14/2024 11:43 AM EDTAssociated Problem(s): Tobacco user Urged to quit * Mckayla Blas NP - 04/14/2024 11:43 AM EDTAssociated Problem(s): Type 2 diabetes mellitus with complication, with long-term current use of insulin ([facility]) Check blood sugars daily, follow w Endo. [...] being taken. She does not see a footwear sales associate.Eye exam is not current. Hypertension This is [...] or chew. ergocalciferol (Vitamin D2) 1.25 MG (94825 UT) capsule TAKE 1 CAPSULE BY MOUTH ONE TIME PER WEEK furosemide (LASIX) 20 mg, Oral, Daily PRN, Take in the afternoon as needed furosemide (LASIX) 40 mg, Oral, Daily Glucose Blood (ACCU-CHEK JAQUI PLUS ) 4 times daily HumaLOG KWIKPEN 100 UNIT/ML injection Subcutaneous hydrALAZINE (APRESOLINE) 25 mg, Oral, 2 times daily HYDROcodone-acetaminophen ([place]) 5-325 MG tablet 1 tablet, 3 times [...] CT Albuminuria 09/17/2023 Angiomyolipoma Anxiety and depression ([facility]) 07/10/2023 Asthma ([facility]) 07/10/2023 Cellulitis of left lower extremity Cervical cancer ([facility]) 09/17/2023 Chronic pain of both knees 09/17/2023 COPD (chronic obstructive pulmonary disease) ([facility]) 07/10/2023 COPD exacerbation ([facility]) 09/17/2023 Decreased functional mobility 09/17/2023 Diabetic neuropathy ([facility]) 07/10/2023 Edema 07/10/2023 Elevated sed rate Elevated WBC count GERD (gastroesophageal reflux disease) 09/17/2023 Hyperlipidemia ([facility]) 09/17/2023 Hypertension ([facility]) 07/10/2023 Insomnia 09/17/2023 Lower extremity edema 09/17/2023 Obstructive sleep apnea 07/10/2023 PAD (peripheral artery disease) ([facility]) 09/17/2023 Pancreatitis 09/17/2023 Pneumonia 09/17/2023 Pulmonary hypertension ([facility]) 09/17/2023 Radiculopathy, lumbar region 09/17/2023 Tobacco user 09/17/2023 Type 2 diabetes mellitus with complication, with long-term current use of insulin ([facility]) 07/10/2023 Unilateral primary osteoarthritis, right hip 09/17/2023 [...] List Items Addressed This Visit Diabetic neuropathy ([facility]) Continue with lyricjuvenal GALLAGHERRRS reviewed Fu in 3 months Relevant Medications pregabalin (Lyrica) 300 MG capsule COPD (chronic obstructive pulmonary disease) ([facility]) - Primary Stable at this time, no changes in meds Encouraged smoking cessation Cont with dr Yañez Hypertension ([facility]) Stable on current meds Refill meds Relevant Medications hydrALAZINE (Apresoline) 25 MG tablet lisinopril 20 MG tablet Type 2 diabetes mellitus with complication, with long-term current use of insulin ([facility]) Check blood sugars daily, follow w Endo. [...] Roflumilast 500 MCG tablet documented in this encounterSaint Francis Hospital & Health [id number] Hospital Discharge instructions Patient Education 11/15/2022 14:09:21 [...] include: ?8 oz (237 mL) of milk, olpeoaf-owqvqtoiqpqc-rqyks milk, and calcium- fortifiedfruit juice. Calcium-fortified means [...] ?Spinach (cooked), rhubarb, beets, sweet potatoes, and Libyan chard. ?Peanuts. ?Potato chips, german fries, and baked potatoes with skin on. ?Nuts and nut products. ?Chocolate. If you regularly take a diuretic medicine, make sure to eat at least 1 or 2 servings of fruits or vegetables that are high in potassium each day. These include: ?Avocado. ?Banana. ?[place], prune, carrot, or tomato juice. ?Baked potato. [...] magnesium, fish oil, or vitamin B6. Take tvpt-icy-soldfyn and prescription medicines only as told by [...] Casseroles. Pizza. Lasagna. Frozen meals. Potato chips. Kosovan fries. The items listed above may not [...] provider. Document Revised: 03/06/2022 Document Reviewed: 03/06/2022 [employer] Patient Education 2022 [employer] Follow Up Care 02/06/2022 11:44:09 With:GAVIOTA ADAMES PA-C, URL Address: [facility] [address] [place] [address] When: Unknown [facility] 02-16-2023 NoteCONSULTATION CONSULTATION DATE: 08/24/2022 HISTORY OF [...] We maintain her on pain medication with [place] 5/325 t.i.d., diclofenac 75 mg b.i.d. Her [...] her at this point. A refill for [place] 5/325 t.i.d. and diclofenac 75 mg b.i.d. will be sent to the pharmacy. Vitamin compliance and nutrition were discussed and enforced. I did highly encourage her to use exercise bands to increase the strength in her lower extremities. We will see her in three months' time, unless otherwise indicated, and patient agrees.[facility] [id number] NoteCONSULTATION CONSULTATION DATE: 05/11/2022 This 51-year-old female [...] 150. Medications include Lyrica 300 mg b.i.d., [place] 5/325 t.i.d., diclofenac 75 mg b.i.d. and [...] her medications today. We will maintain Lyrica, [place] and diclofenac at the set dose and frequency. We will follow-up in the clinic in three months' time. The patient is in agreement to this. Vitamin importance and nutrition were discussed.[facility] [id number] NoteCONSULTATION CONSULTATION DATE: 04/20/2022 HISTORY OF PRESENT [...] medications include Tylenol, Lyrica 300 mg b.i.d., [place] 5/325 t.i.d., amitriptyline, diclofenac and duloxetine. Patient's [...] will be followed up in the clinic.[facility] [id number] Evaluation note* Encounter Date Diagnosis Assessment Notes [...] to the DANIEL. Thrombocytopenia is unclear etiology. [facility] Other 08-15-2022 Evaluation note* Encounter Date Diagnosis [...] follow with Dr. Souza and Dr. Arauz. [facility] Other 08-01-2022 Hospital Discharge instructions Patient Education [...] fried and sweet foods. General instructions Take urit-rib-ojlfyxk and prescription medicines only as told by [...] 04/21/2010 Document Revised: 10/16/2019 Document Reviewed: 07/11/2018 [employer] Patient Education 2020 [employer]. Follow Up Care 01/05/2022 12:02:03 With:REGLA PHIPPS, Elbert Joya, URL Address: [facility] [address] [place] [address] [phone] When:Within 6 Month(s) Comments:w/ repeat CT A/P [facility] 07-14-2022 NoteCONSULTATION PROCEDURE DATE: 01/19/2022 PRE [...] patient tolerated it well. [facility] Signed and Approved by: GIL VALENZUELA . 01/27/2022 14:15:00[facility]07-14-2022 NoteCONSULTATION CONSULTATION DATE: 01/19/2022 This [...] today. Medications include Lyrica 300 mg b.i.d., [place] 5/325 t.i.d., diclofenac 75 mg b.i.d. and [...] time unless otherwise indicated. [facility] Signed and Approved by: GIL VALENZUELA . 01/27/2022 14:15:00[facility] HospitalEvaluation + Plan note Future Appointments Appointment Date:08/14/2022 09:15:00 AM Scheduled Provider:Elbert ARAUZ MD Location:[facility] Appointment Type:URO Office Visit [facility] evaluation + Plan note Future Appointments Appointment Date:04/22/2024 10:00:00 AM Scheduled Provider:GAVIOTA ADAMES PA-C Location:[facility] Appointment Type:URO Office Visit [facility] evaluation note* Diagnosis Type 2 diabetes mellitus with unspecified complications (CMS/HCC) Edema, unspecified Edema [facility] Diagnosis Vaginal yeast infection- Primary Candidiasis of vulva and vagina documented [facility]* Diagnosis Primary hypertension (CMS/HCC)- Primary Unspecified essential hypertension Insomnia Insomnia, unspecified Type 2 diabetes mellitus with complication, with long-term current use of insulin ([facility]) Non-seasonal allergic rhinitis, unspecified trigger Type 2 diabetes mellitus with unspecified complications (CMS/[facility]) Anxiety and depression ([facility]) Gastro-esophageal reflux disease without esophagitis Edema, unspecified Edema Diabetic polyneuropathy associated with type 2 diabetes mellitus ([facility]) Chronic obstructive pulmonary disease, unspecified ([facility]) Pulmonary emphysema, unspecified emphysema type ([facility]) Bilateral lower extremity edema Tobacco user Tobacco use disorder Hyperpigmentation of skin Other dyschromia documented in this encounter [facility]* Diagnosis Obstructive sleep apnea- Primary Obstructive sleep apnea (adult) (pediatric) Pulmonary emphysema, unspecified emphysema type ([facility]) Primary hypertension ([facility]) Unspecified essential hypertension Type 2 diabetes mellitus with complication, with long-term current use of insulin ([facility]) Anxiety and depression ([facility]) Bilateral lower extremity edema Pulmonary emphysema, unspecified emphysema type ([facility])- Primary Primary hypertension ([facility] Unspecified essential hypertension Class 3 severe obesity with serious comorbidity and body mass index (BMI) of 50.0 to 59.9 in adult,unspecified obesity type ([facility]) Obstructive sleep apnea Obstructive sleep apnea (adult) (pediatric) Pulmonary hypertension ([facility]) Other chronic pulmonary heart diseases Tobacco user Tobacco use disorder Cardiomegaly Primary hypertension ([facility])- Primary Unspecified essential hypertension Gastroesophageal reflux disease, unspecified whether esophagitis present Type 2 diabetes mellitus with complication, with long-term current use of insulin ([facility]) Mixed hyperlipidemia ([facility]) Mixed hyperlipidemia Tobacco user Tobacco use disorder Encounter for screening mammogram for malignant neoplasm of breast Chronic obstructive pulmonary disease, unspecified ([facility]) Other specified chronic obstructive pulmonary disease ([facility]) Anxiety and depression ([facility]) Edema, unspecified Edema Hyperlipidemia, unspecified ([facility]) Diabetic polyneuropathy associated with type 2 diabetes mellitus ([facility]) Gout, unspecified cause, unspecified chronicity, unspecified site Non-seasonal allergic rhinitis, unspecified trigger Bilateral lower extremity edema COPD exacerbation ([facility]) Obstructive chronic bronchitis with exacerbation Pulmonary emphysema, unspecified emphysema type ([facility]) Venous insufficiency Unspecified venous (peripheral) insufficiency Candidiasis of breast COPD exacerbation ([facility])- Primary Obstructive chronic bronchitis with exacerbation Pulmonary hypertension ([facility]) Other chronic pulmonary heart diseases Class 3 severe obesity with serious comorbidity and body mass index (BMI) of 50.0 to 59.9 in adult,unspecified obesity type (CMS/[facility]) Encounter for subsequent annual wellness visit (AWV) in Medicare patient- Primary Type 2 diabetes mellitus with unspecified complications (CMS/HCC) Pulmonary emphysema, unspecified emphysema type (CMS/HCC) Moderate persistent asthma without complication (CMS/HCC) Primary hypertension (CMS/HCC) Unspecified essential hypertension Type 2 diabetes mellitus with complication, with long-term current use of insulin (CMS/[facility]) Class 3 severe obesity with serious comorbidity and body mass index (BMI) of 50.0 to 59.9 in adult,unspecified obesity type (CMS/HCC) Tobacco user Tobacco use disorder Other headache syndrome Malignant neoplasm of cervix uteri, unspecified (CMS/HCC) Other specified disorders of adrenal gland (CMS/[facility]) Major depressive disorder, single episode, mild (HCC) (CMS/[facility]) Major depressive disorder, single episode, mild Non-pressure chronic ulcer of other part of left lower leg with fat layer exposed (CMS/[facility]) Chronic respiratory failure, unspecified whether with hypoxia or hypercapnia (CMS/[facility]) Disorder of adrenal gland, unspecified (CMS/[facility]) Non-pressure chronic ulcer of other part of right lower leg limited to breakdown of skin (CMS/[facility]) Non-recurrent acute suppurative otitis media of left ear without spontaneous rupture of tympanic membrane Primary hypertension ([facility])- Primary Unspecified essential hypertension Insomnia Insomnia, unspecified Type 2 diabetes mellitus with complication, with long-term current use of insulin (CMS/HCC) Non-seasonal allergic rhinitis, unspecified trigger Type 2 diabetes mellitus with unspecified complications (CMS/[facility]) Anxiety and depression (CMS/[facility]) Gastro-esophageal reflux disease without esophagitis Edema, unspecified Edema Diabetic polyneuropathy associated with type 2 diabetes mellitus (CMS/[facility]) Chronic obstructive pulmonary disease, unspecified (CMS/HCC) Pulmonary emphysema, unspecified emphysema type (CMS/HCC) Bilateral lower extremity edema Tobacco user Tobacco use disorder Hyperpigmentation of skin Other dyschromia Type 2 diabetes mellitus with hyperglycemia, with long-term current use of insulin (CMS/[facility])- Primary Encounter for dietary consultation Vitamin D deficiency Primary hypertension (CMS/HCC) Unspecified essential hypertension Insulin long-term use ([facility]) Encounter for long-term (current) use of insulin Hyperlipemia, mixed (CMS/[facility]) Mixed hyperlipidemia Microalbuminuria Proteinuria Class 3 severe obesity due to excess calories with serious comorbidity and body mass index (BMI) of50.0 to 59.9 in adult ([facility]) documented in this encounter [facility] HealthcareEvaluation note* Diagnosis Hyperlipidemia, unspecified ([facility]) Bilateral lower extremity edema documented in this encounter [facility] HealthcareEvaluation [facility]* Diagnosis Vitamin D deficiency, unspecified documented in this encounter [facility] HealthcareEvaluation note* Diagnosis Obstructive sleep apnea- Primary Obstructive sleep apnea (adult) (pediatric) Pulmonary emphysema, unspecified emphysema type ([facility]) Primary hypertension ([facility]) Unspecified essential hypertension Type 2 diabetes mellitus with complication, with long-term current use of insulin ([facility]) Anxiety and depression ([facility]) Bilateral lower extremity edema Pulmonary emphysema, unspecified emphysema type ([facility])- Primary Primary hypertension ([facility]) Unspecified essential hypertension Class 3 severe obesity with serious comorbidity and body mass index (BMI) of 50.0 to 59.9 in adult,unspecified obesity type ([facility]) Obstructive sleep apnea Obstructive sleep apnea (adult) (pediatric) Pulmonary hypertension ([facility]) Other chronic pulmonary heart diseases Tobacco user Tobacco use disorder Cardiomegaly Primary hypertension ([facility])- Primary Unspecified essential hypertension Gastroesophageal reflux disease, unspecified whether esophagitis present Type 2 diabetes mellitus with complication, with long-term current use of insulin ([facility]) Mixed hyperlipidemia ([facility]) Mixed hyperlipidemia Tobacco user Tobacco use disorder Encounter for screening mammogram for malignant neoplasm of breast Chronic obstructive pulmonary disease, unspecified ([facility]) Other specified chronic obstructive pulmonary disease ([facility]) Anxiety and depression ([facility]) Edema, unspecified Edema Hyperlipidemia, unspecified ([facility]) Diabetic polyneuropathy associated with type 2 diabetes mellitus ([facility]) Gout, unspecified cause, unspecified chronicity, unspecified site Non-seasonal allergic rhinitis, unspecified trigger Bilateral lower extremity edema COPD exacerbation ([facility]) Obstructive chronic bronchitis with exacerbation Pulmonary emphysema, unspecified emphysema type ([facility]) Venous insufficiency Unspecified venous (peripheral) insufficiency Candidiasis of breast COPD exacerbation ([facility])- Primary Obstructive chronic bronchitis with exacerbation Pulmonary hypertension ([facility]) Other chronic pulmonary heart diseases Class 3 severe obesity with serious comorbidity and body mass index (BMI) of 50.0 to 59.9 in adult,unspecified obesity type ([facility]) Encounter for subsequent annual wellness visit (AWV) [...] Major depressive disorder, single episode, mild (HCC) ([facility]) Major depressive disorder, single episode, mild Non-pressure chronic ulcer of other part of left lower leg with fat layer exposed ([facility]) Chronic respiratory failure, unspecified whether with hypoxia or hypercapnia ([facility]) Disorder of adrenal gland, unspecified ([facility]) Non-pressure chronic ulcer of other part of right lower leg limited to breakdown of skin ([facility]) Non-recurrent acute suppurative otitis media of left ear without spontaneous rupture of tympanic membrane Primary hypertension (CMS/HCC)- Primary Unspecified essential hypertension Insomnia Insomnia, unspecified Type 2 diabetes mellitus with complication, with long-term current use of insulin (CMS/HCC) Non-seasonal allergic rhinitis, unspecified trigger Type 2 diabetes mellitus with unspecified complications (CMS/HCC) Anxiety and depression ([facility]) Gastro-esophageal reflux disease without esophagitis Edema, unspecified Edema Diabetic polyneuropathy associated with type 2 diabetes mellitus ([facility]) Chronic obstructive pulmonary disease, unspecified (CMS/HCC) Pulmonary [...] 50.0 to 59.9 in adult,unspecified obesity type ([facility]) Obstructive sleep apnea Obstructive sleep apnea (adult) (pediatric) Pulmonary hypertension (CMS/HCC) Other chronic pulmonary heart diseases Tobacco user Tobacco use disorder Cardiomegaly Primary hypertension (CMS/HCC)- Primary Unspecified essential hypertension Gastroesophageal reflux disease, unspecified whether esophagitis present Type 2 diabetes mellitus with complication, with long-term current use of insulin ([facility]) Mixed hyperlipidemia (CMS/HCC) Mixed hyperlipidemia Tobacco user Tobacco use disorder Encounter for screening mammogram for malignant neoplasm of breast Chronic obstructive pulmonary disease, unspecified ([facility]) Other specified chronic obstructive pulmonary disease ([facility]) Anxiety and depression ([facility]) Edema, unspecified Edema Hyperlipidemia, unspecified ([facility]) Diabetic polyneuropathy associated with type 2 diabetes mellitus ([facility]) Gout, unspecified cause, unspecified chronicity, unspecified site Non-seasonal allergic rhinitis, unspecified trigger Bilateral lower extremity edema COPD exacerbation ([facility]) Obstructive chronic bronchitis with exacerbation Pulmonary emphysema, unspecified emphysema type (CMS/HCC) Venous insufficiency Unspecified venous (peripheral) insufficiency Candidiasis of breast COPD exacerbation ([facility])- Primary Obstructive chronic bronchitis with exacerbation Pulmonary hypertension (CMS/HCC) Other chronic pulmonary heart diseases Class 3 severe obesity with serious comorbidity and body mass index (BMI) of 50.0 to 59.9 in adult,unspecified obesity type ([facility]) Encounter for subsequent annual wellness visit (AWV) in Medicare patient- Primary Type 2 diabetes mellitus with unspecified complications ([facility]) Pulmonary emphysema, unspecified emphysema type (CMS/HCC) Moderate persistent asthma without complication (CMS/HCC) Primary hypertension ([facility]) Unspecified essential hypertension Type 2 diabetes mellitus with complication, with long-term current use of insulin ([facility]) Class 3 severe obesity with serious comorbidity and body mass index (BMI) of 50.0 to 59.9 in adult,unspecified obesity type ([facility]/HCC) Tobacco user Tobacco use disorder Other headache syndrome Malignant neoplasm of cervix uteri, unspecified ([facility]) Other specified disorders of adrenal gland ([facility]) Major depressive disorder, single episode, mild (HCC) ([facility]) Major depressive disorder, single episode, mild Non-pressure [...] spontaneous rupture of tympanic membrane Primary hypertension ([facility])- Primary Unspecified essential hypertension Insomnia Insomnia, unspecified Type 2 diabetes mellitus with complication, with long-term current use of insulin (CMS/HCC) Non-seasonal allergic rhinitis, unspecified trigger Type 2 diabetes mellitus with unspecified complications (CMS/HCC) Anxiety and depression ([facility]) Gastro-esophageal reflux disease without esophagitis Edema, unspecified Edema Diabetic polyneuropathy associated with type 2 diabetes mellitus ([facility]) Chronic obstructive pulmonary disease, unspecified ([facility]) Pulmonary emphysema, unspecified emphysema type (CMS/HCC) Bilateral lower extremity edema Tobacco user Tobacco use disorder Hyperpigmentation of skin Other dyschromia Primary hypertension ([facility])- Primary Unspecified essential hypertension Diabetic polyneuropathy associated with type 2 diabetes mellitus ([facility]) Pulmonary emphysema, unspecified emphysema type (CMS/HCC) Critical limb ischemia of right lower extremity ([facility]) PAD (peripheral artery disease) ([facility]) Unspecified peripheral vascular disease Gastroesophageal reflux disease, unspecified whether esophagitis present Bilateral lower extremity edema Venous ulcer of right leg ([facility]) Type 2 diabetes mellitus with complication, with long-term current use of insulin ([facility]) Tobacco user Tobacco use disorder Encounter for smoking cessation counseling Kidney stone Calculus of kidney Adrenal mass 1 cm to 4 cm in diameter ([facility]) Radiculopathy, lumbar region Thoracic or lumbosacral neuritis or radiculitis, unspecified Non-seasonal allergic rhinitis, unspecified trigger Type 2 diabetes mellitus with unspecified complications ([facility]) documented in this encounter [facility] HealthcareEvaluation note* Diagnosis Obstructive sleep apnea- Primary Obstructive sleep apnea (adult) (pediatric) Pulmonary emphysema, unspecified emphysema type (CMS/HCC) Primary hypertension ([facility]) Unspecified essential hypertension Type 2 diabetes mellitus with complication, with long-term current use of insulin ([facility]) Anxiety and depression ([facility]) Bilateral lower extremity edema Pulmonary emphysema, unspecified emphysema type (CMS/HCC)- Primary Primary hypertension (CMS/HCC) Unspecified essential hypertension Class 3 severe obesity with serious comorbidity and body mass index (BMI) of 50.0 to 59.9 in adult,unspecified obesity type (CMS/HCC) Obstructive sleep apnea Obstructive [...] of breast Chronic obstructive pulmonary disease, unspecified ([facility]) Other specified chronic obstructive pulmonary disease (CMS/HCC) Anxiety and depression ([facility]) Edema, unspecified Edema Hyperlipidemia, unspecified ([facility]) Diabetic polyneuropathy associated with type 2 diabetes mellitus ([facility]) Gout, unspecified cause, unspecified chronicity, unspecified site [...] 50.0 to 59.9 in adult,unspecified obesity type ([facility]/HCC) Encounter for subsequent annual wellness visit (AWV) in Medicare patient- Primary Type 2 diabetes mellitus with unspecified complications (CMS/HCC) Pulmonary emphysema, unspecified emphysema type (CMS/HCC) Moderate persistent asthma without complication (CMS/HCC) Primary hypertension (CMS/HCC) Unspecified essential hypertension Type 2 diabetes mellitus with complication, with long-term current use of insulin ([facility]) Class 3 severe obesity with serious comorbidity and body mass index (BMI) of 50.0 to 59.9 in adult,unspecified obesity type (CMS/HCC) Tobacco user Tobacco use disorder Other headache syndrome Malignant neoplasm of cervix uteri, unspecified ([facility]) Other specified disorders of adrenal gland ([facility]) Major depressive disorder, single episode, mild (HCC) ([facility]) Major depressive disorder, single episode, mild Non-pressure chronic ulcer of other part of left lower leg with fat layer exposed ([facility]) Chronic respiratory failure, unspecified whether with hypoxia or hypercapnia (CMS/HCC) Disorder of adrenal gland, unspecified (CMS/HCC) Non-pressure chronic ulcer of other part of right lower leg limited to breakdown of skin (CMS/HCC) Non-recurrent acute suppurative otitis media of left ear without spontaneous rupture of tympanic membrane Primary hypertension ([facility]/HCC)- Primary Unspecified essential hypertension Insomnia Insomnia, unspecified Type 2 diabetes mellitus with complication, with long-term current use of insulin ([facility]) Non-seasonal allergic rhinitis, unspecified trigger Type 2 diabetes mellitus with unspecified complications ([facility]) Anxiety and depression ([facility]) Gastro-esophageal reflux disease without esophagitis Edema, unspecified Edema Diabetic polyneuropathy associated with type 2 diabetes mellitus ([facility]) Chronic obstructive pulmonary disease, unspecified ([facility]) Pulmonary emphysema, unspecified emphysema type ([facility]) Bilateral lower extremity edema Tobacco user Tobacco use disorder Hyperpigmentation of skin Other dyschromia Primary hypertension ([facility])- Primary Unspecified essential hypertension Diabetic polyneuropathy associated with type 2 diabetes mellitus ([facility]) Pulmonary emphysema, unspecified emphysema type ([facility]) Critical limb ischemia of right lower extremity ([facility]) PAD (peripheral artery disease) ([facility]) Unspecified peripheral vascular disease Gastroesophageal reflux disease, unspecified whether esophagitis present Bilateral lower extremity edema Venous ulcer of right leg ([facility]) Type 2 diabetes mellitus with complication, with long-term current use of insulin ([facility]) Tobacco user Tobacco use disorder Encounter for smoking cessation counseling Kidney stone Calculus of kidney Adrenal mass 1 cm to 4 cm in diameter ([facility]) Radiculopathy, lumbar region Thoracic or lumbosacral neuritis or radiculitis, unspecified Non-seasonal allergic rhinitis, unspecified trigger Type 2 diabetes mellitus with unspecified complications (CMS/HCC) Anxiety and depression ([facility])- Primary Morbid (severe) obesity due to excess calories ([facility]) Body mass index (BMI) 50.0-59.9, adult ([facility]) Malignant neoplasm of cervix uteri, unspecified ([facility]) Diabetic polyneuropathy associated with type 2 diabetes mellitus ([facility]) Chronic diastolic heart failure ([facility]) Chronic diastolic heart failure Primary hypertension ([facility]) Unspecified essential hypertension 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 ([facility]) Gastroesophageal reflux disease, unspecified whether esophagitis present Bilateral lower extremity edema Type 2 diabetes mellitus with complication, with long-term current use of insulin ([facility]) Tobacco user Tobacco use disorder Mixed hyperlipidemia ([facility]) Mixed hyperlipidemia Gout, unspecified cause, unspecified chronicity, unspecified site Vitamin deficiency Unspecified vitamin deficiency Gastro-esophageal reflux disease without esophagitis Edema, unspecified Edema Hyperlipidemia, unspecified ([facility] Encounter for smoking cessation counseling Venous ulcer of right leg ([facility]) Antibiotic-induced yeast infection documented in this encounter [facility] HealthcareEvaluation note* Diagnosis Obstructive sleep apnea- Primary Obstructive sleep apnea (adult) (pediatric) Pulmonary emphysema, unspecified emphysema type ([facility]) Primary hypertension ([facility]) Unspecified essential hypertension Type 2 diabetes mellitus with complication, with long-term current use of insulin ([facility]) Anxiety and depression ([facility]) Bilateral lower extremity edema Pulmonary emphysema, unspecified emphysema type ([facility])- Primary Primary hypertension ([facility]) Unspecified essential hypertension Class 3 severe obesity with serious comorbidity and body mass index (BMI) of 50.0 to 59.9 in adult,unspecified obesity type Obstructive sleep apnea Obstructive sleep apnea (adult) (pediatric) Pulmonary hypertension ([facility]) Other chronic pulmonary heart diseases Tobacco user Tobacco use disorder Cardiomegaly Primary hypertension ([facility])- Primary Unspecified essential hypertension Gastroesophageal reflux disease, unspecified whether esophagitis present Type 2 diabetes mellitus with complication, with long-term current use of insulin ([facility]) Mixed hyperlipidemia ([facility]) Mixed hyperlipidemia Tobacco user Tobacco use disorder Encounter for screening mammogram for malignant neoplasm of breast Chronic obstructive pulmonary disease, unspecified Other specified chronic obstructive pulmonary disease Anxiety and depression ([facility]) Edema, unspecified Edema Hyperlipidemia, unspecified ([facility]) Diabetic polyneuropathy associated with type 2 diabetes mellitus ([facility]) Gout, unspecified cause, unspecified chronicity, unspecified site Non-seasonal allergic rhinitis, unspecified trigger Bilateral lower extremity edema COPD exacerbation ([facility]) Obstructive chronic bronchitis with exacerbation Pulmonary emphysema, unspecified emphysema type ([facility]) Venous insufficiency Unspecified venous (peripheral) insufficiency Candidiasis of breast [facility] Primary Obstructive chronic bronchitis with exacerbation Pulmonary hypertension ([facility]) Other chronic pulmonary heart diseases Class 3 severe obesity with serious comorbidity and body mass index (BMI) of 50.0 to 59.9 in adult,unspecified obesity type Encounter for subsequent annual wellness visit (AWV) in Medicare patient- Primary Type 2 diabetes mellitus with unspecified complications Pulmonary emphysema, unspecified emphysema type ([facility]) Moderate persistent asthma without complication ([facility]) Primary hypertension ([facility]) Unspecified essential hypertension Type 2 diabetes mellitus with complication, with long-term current use of insulin ([facility]) Class 3 severe obesity with serious comorbidity and body mass index (BMI) of 50.0 to 59.9 in adult,unspecified obesity type Tobacco user Tobacco use disorder Other headache syndrome Malignant neoplasm of cervix uteri, unspecified Other specified disorders of adrenal gland Major depressive disorder, single episode, mild (HCC) ([facility]) Major depressive disorder, single episode, mild Non-pressure chronic ulcer of other part of left lower leg with fat layer exposed Chronic respiratory failure, unspecified whether with hypoxia or hypercapnia Disorder of adrenal gland, unspecified Non-pressure chronic ulcer of other part of right lower leg limited to breakdown of skin ([facility]) Non-recurrent acute suppurative otitis media of left ear without spontaneous rupture of tympanic membrane Primary hypertension ([facility])- Primary Unspecified essential hypertension Insomnia Insomnia, unspecified Type 2 diabetes mellitus with complication, with long-term current use of insulin ([facility]) Non-seasonal allergic rhinitis, unspecified trigger Type 2 diabetes mellitus with unspecified complications Anxiety and depression ([facility]) Gastro-esophageal reflux disease without esophagitis Edema, unspecified Edema Diabetic polyneuropathy associated with type 2 diabetes mellitus ([facility]) Chronic obstructive pulmonary disease, unspecified Pulmonary emphysema, unspecified emphysema type (CMS/HCC) Bilateral lower extremity edema Tobacco user Tobacco use disorder Hyperpigmentation of skin Other dyschromia Primary hypertension (CMS/HCC)- Primary Unspecified essential hypertension Diabetic polyneuropathy associated with type 2 diabetes mellitus ([facility]) Pulmonary emphysema, unspecified emphysema type (CMS/HCC) Critical limb ischemia of right lower extremity ([facility]) PAD (peripheral artery disease) ([facility]) Unspecified peripheral vascular disease Gastroesophageal reflux disease, unspecified whether esophagitis present Bilateral lower extremity edema Venous ulcer of right leg ([facility]) Type 2 diabetes mellitus with complication, with long-term current use of insulin ([facility]) Tobacco user Tobacco use disorder Encounter for smoking cessation counseling Kidney stone Calculus of kidney Adrenal mass 1 cm to 4 cm in diameter ([facility]) Radiculopathy, lumbar region Thoracic or lumbosacral neuritis or radiculitis, unspecified Non-seasonal allergic rhinitis, unspecified trigger Type 2 diabetes mellitus with unspecified complications Anxiety and depression ([facility])- Primary Morbid (severe) obesity due to excess calories ([facility]) Body mass index (BMI) 50.0-59.9, adult ([facility]) Malignant neoplasm of cervix uteri, unspecified Diabetic polyneuropathy associated with type 2 diabetes mellitus ([facility]) Chronic diastolic heart failure ([facility]) Chronic diastolic heart failure Primary hypertension ([facility]) Unspecified essential hypertension 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 Gastroesophageal reflux disease, unspecified whether esophagitis present Bilateral lower extremity edema Type 2 diabetes mellitus with complication, with long-term current use of insulin ([facility]) Tobacco user Tobacco use disorder Mixed hyperlipidemia ([facility]) Mixed hyperlipidemia Gout, unspecified cause, unspecified chronicity, unspecified site Vitamin deficiency Unspecified vitamin deficiency Gastro-esophageal reflux disease without esophagitis Edema, unspecified Edema Hyperlipidemia, unspecified ([facility]) Encounter for smoking cessation counseling Venous ulcer of right leg ([facility]) Antibiotic-induced yeast infection Type 2 diabetes mellitus with hyperglycemia, with long-term current use of insulin ([facility])- Primary Encounter for dietary consultation Vitamin D deficiency Primary hypertension ([facility] Unspecified essential hypertension Insulin long-term use ([facility]) Encounter for long-term (current) use of insulin Hyperlipemia, mixed ([facility]) Mixed hyperlipidemia Microalbuminuria Proteinuria Class 3 severe obesity due to excess calories with serious comorbidity and body mass index (BMI) of50.0 to 59.9 in adult documented in this encounter [facility] HealthcareEvaluation note* Diagnosis Obstructive sleep apnea- Primary Obstructive sleep apnea (adult) (pediatric) Pulmonary emphysema, unspecified emphysema type ([facility]) Primary hypertension ([facility]) Unspecified essential hypertension Type 2 diabetes mellitus with complication, with long-term current use of insulin ([facility]) Anxiety and depression ([facility]) Bilateral lower extremity edema Pulmonary emphysema, unspecified emphysema type ([facility])- Primary Primary hypertension ([facility]) Unspecified essential hypertension Class 3 severe obesity with serious comorbidity and body mass index (BMI) of 50.0 to 59.9 in adult,unspecified obesity type Obstructive sleep apnea Obstructive sleep apnea (adult) (pediatric) Pulmonary hypertension ([facility]) Other chronic pulmonary heart diseases Tobacco user Tobacco use disorder Cardiomegaly Primary hypertension ([facility])- Primary Unspecified essential hypertension Gastroesophageal reflux disease, unspecified whether esophagitis present Type 2 diabetes mellitus with complication, with long-term current use of insulin ([facility]) Mixed hyperlipidemia ([facility]) Mixed hyperlipidemia Tobacco user Tobacco use disorder Encounter for screening mammogram for malignant neoplasm of breast Chronic obstructive pulmonary disease, unspecified Other specified chronic obstructive pulmonary disease Anxiety and depression ([facility]) Edema, unspecified Edema Hyperlipidemia, unspecified ([facility]) Diabetic polyneuropathy associated with type 2 diabetes mellitus ([facility]) Gout, unspecified cause, unspecified chronicity, unspecified site Non-seasonal allergic rhinitis, unspecified trigger Bilateral lower extremity edema COPD exacerbation ([facility]) Obstructive chronic bronchitis with exacerbation Pulmonary emphysema, unspecified emphysema type ([facility]) Venous insufficiency Unspecified venous (peripheral) insufficiency Candidiasis of breast COPD exacerbation ([facility])- Primary Obstructive chronic bronchitis with exacerbation Pulmonary hypertension ([facility]) Other chronic pulmonary heart diseases Class 3 severe obesity with serious comorbidity and body mass index (BMI) of 50.0 to 59.9 in adult,unspecified obesity type Encounter for subsequent annual wellness visit (AWV) in Medicare patient- Primary Type 2 diabetes mellitus with unspecified complications Pulmonary emphysema, unspecified emphysema type ([facility]) Moderate persistent asthma without complication ([facility]) Primary hypertension ([facility]) Unspecified essential hypertension Type 2 diabetes mellitus with complication, with long-term current use of insulin ([facility]) Class 3 severe obesity with serious comorbidity and body mass index (BMI) of 50.0 to 59.9 in adult,unspecified obesity type Tobacco user Tobacco use disorder Other headache syndrome Malignant neoplasm of cervix uteri, unspecified Other specified disorders of adrenal gland Major depressive disorder, single episode, mild (HCC) ([facility]) Major depressive disorder, single episode, mild Non-pressure chronic ulcer of other part of left lower leg with fat layer exposed Chronic respiratory failure, unspecified whether with hypoxia or hypercapnia Disorder of adrenal gland, unspecified Non-pressure chronic ulcer of other part of right lower leg limited to breakdown of skin ([facility]) Non-recurrent acute suppurative otitis media of left ear without spontaneous rupture of tympanic membrane Primary hypertension ([facility])- Primary Unspecified essential hypertension Insomnia Insomnia, unspecified Type 2 diabetes mellitus with complication, with long-term current use of insulin ([facility]) Non-seasonal allergic rhinitis, unspecified trigger Type 2 diabetes mellitus with unspecified complications Anxiety and depression ([facility]) Gastro-esophageal reflux disease without esophagitis Edema, unspecified Edema Diabetic polyneuropathy associated with type 2 diabetes mellitus ([facility]) Chronic obstructive pulmonary disease, unspecified Pulmonary emphysema, unspecified emphysema type ([facility]) Bilateral lower extremity edema Tobacco user Tobacco use disorder Hyperpigmentation of skin Other dyschromia Primary hypertension ([facility])- Primary Unspecified essential hypertension Diabetic polyneuropathy associated with type 2 diabetes mellitus ([facility]) Pulmonary emphysema, unspecified emphysema type ([facility]) Critical limb ischemia of right lower extremity ([facility]) PAD (peripheral artery disease) ([facility]) Unspecified peripheral vascular disease Gastroesophageal reflux disease, unspecified whether esophagitis present Bilateral lower extremity edema Venous ulcer of right leg ([facility]) Type 2 diabetes mellitus with complication, with long-term current use of insulin ([facility]) Tobacco user Tobacco use disorder Encounter for smoking cessation counseling Kidney stone Calculus of kidney Adrenal mass 1 cm to 4 cm in diameter ([facility]) Radiculopathy, lumbar region Thoracic or lumbosacral neuritis or radiculitis, unspecified Non-seasonal allergic rhinitis, unspecified trigger Type 2 diabetes mellitus with unspecified complications Anxiety and depression ([facility])- Primary Morbid (severe) obesity due to excess calories ([facility]) Body mass index (BMI) 50.0-59.9, adult ([facility]) Malignant neoplasm of cervix uteri, unspecified Diabetic polyneuropathy associated with type 2 diabetes mellitus ([facility]) Chronic diastolic heart failure ([facility] Chronic diastolic heart failure Primary hypertension ([facility]) Unspecified essential hypertension 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 Gastroesophageal reflux disease, unspecified whether esophagitis present Bilateral lower extremity edema Type 2 diabetes mellitus with complication, with long-term current use of insulin ([facility]) Tobacco user Tobacco use disorder Mixed hyperlipidemia ([facility]) Mixed hyperlipidemia Gout, unspecified cause, unspecified chronicity, unspecified site Vitamin deficiency Unspecified vitamin deficiency Gastro-esophageal reflux disease without esophagitis Edema, unspecified Edema Hyperlipidemia, unspecified ([facility]) Encounter for smoking cessation counseling Venous ulcer of right leg ([facility]) Antibiotic-induced yeast infection Chronic obstructive pulmonary disease, unspecified documented in this encounter [facility] HealthcareEvaluation note* Diagnosis Obstructive sleep apnea- Primary Obstructive sleep apnea (adult) (pediatric) Pulmonary emphysema, unspecified emphysema type ([facility]) Primary hypertension ([facility]) Unspecified essential hypertension Type 2 diabetes mellitus with complication, with long-term current use of insulin ([facility]) Anxiety and depression ([facility]) Bilateral lower extremity edema Pulmonary emphysema, unspecified emphysema type ([facility])- Primary Primary hypertension ([facility]) Unspecified essential hypertension Class 3 severe obesity with serious comorbidity and body mass index (BMI) of 50.0 to 59.9 in adult,unspecified obesity type Obstructive sleep apnea Obstructive sleep apnea (adult) (pediatric) Pulmonary hypertension ([facility]) Other chronic pulmonary heart diseases Tobacco user Tobacco use disorder Cardiomegaly Primary hypertension ([facility])- Primary Unspecified essential hypertension Gastroesophageal reflux disease, unspecified whether esophagitis present Type 2 diabetes mellitus with complication, with long-term current use of insulin ([facility]) Mixed hyperlipidemia ([facility]) Mixed hyperlipidemia Tobacco user Tobacco use disorder Encounter for screening mammogram for malignant neoplasm of breast Chronic obstructive pulmonary disease, unspecified Other specified chronic obstructive pulmonary disease Anxiety and depression ([facility]) Edema, unspecified Edema Hyperlipidemia, unspecified ([facility] Diabetic polyneuropathy associated with type 2 diabetes mellitus ([facility]) Gout, unspecified cause, unspecified chronicity, unspecified site Non-seasonal allergic rhinitis, unspecified trigger Bilateral lower extremity edema COPD exacerbation ([facility]) Obstructive chronic bronchitis with exacerbation Pulmonary emphysema, unspecified emphysema type ([facility]) Venous insufficiency Unspecified venous (peripheral) insufficiency Candidiasis of breast COPD exacerbation ([facility])- Primary Obstructive chronic bronchitis with exacerbation Pulmonary hypertension ([facility]) Other chronic pulmonary heart diseases Class 3 severe obesity with serious comorbidity and body mass index (BMI) of 50.0 to 59.9 in adult,unspecified obesity type Encounter for subsequent annual wellness visit (AWV) in Medicare patient- Primary Type 2 diabetes mellitus with unspecified complications Pulmonary emphysema, unspecified emphysema type ([facility]) Moderate persistent asthma without complication ([facility]) Primary hypertension ([facility]) Unspecified essential hypertension Type 2 diabetes mellitus with complication, with long-term current use of insulin ([facility]) Class 3 severe obesity with serious comorbidity and body mass index (BMI) of 50.0 to 59.9 in adult,unspecified obesity type Tobacco user Tobacco use disorder Other headache syndrome Malignant neoplasm of cervix uteri, unspecified Other specified disorders of adrenal gland Major depressive disorder, single episode, mild (HCC) ([facility]) Major depressive disorder, single episode, mild Non-pressure chronic ulcer of other part of left lower leg with fat layer exposed Chronic respiratory failure, unspecified whether with hypoxia or hypercapnia Disorder of adrenal gland, unspecified Non-pressure chronic ulcer of other part of right lower leg limited to breakdown of skin ([facility]) Non-recurrent acute suppurative otitis media of left ear without spontaneous rupture of tympanic membrane Primary hypertension ([facility])- Primary Unspecified essential hypertension Insomnia Insomnia, unspecified Type 2 diabetes mellitus with complication, with long-term current use of insulin ([facility]) Non-seasonal allergic rhinitis, unspecified trigger Type 2 diabetes mellitus with unspecified complications Anxiety and depression ([facility]) Gastro-esophageal reflux disease without esophagitis Edema, unspecified Edema Diabetic polyneuropathy associated with type 2 diabetes mellitus ([facility]) Chronic obstructive pulmonary disease, unspecified Pulmonary emphysema, unspecified emphysema type ([facility]) Bilateral lower extremity edema Tobacco user Tobacco use disorder Hyperpigmentation of skin Other dyschromia Primary hypertension ([facility])- Primary Unspecified essential hypertension Diabetic polyneuropathy associated with type 2 diabetes mellitus ([facility]) Pulmonary emphysema, unspecified emphysema type ([facility]) Critical limb ischemia of right lower extremity ([facility]) PAD (peripheral artery disease) ([facility]) Unspecified peripheral vascular disease Gastroesophageal reflux disease, unspecified whether esophagitis present Bilateral lower extremity edema Venous ulcer of right leg ([facility]) Type 2 diabetes mellitus with complication, with long-term current use of insulin ([facility]) Tobacco user Tobacco use disorder Encounter for smoking cessation counseling Kidney stone Calculus of kidney Adrenal mass 1 cm to 4 cm in diameter ([facility]) Radiculopathy, lumbar region Thoracic or lumbosacral neuritis or radiculitis, unspecified Non-seasonal allergic rhinitis, unspecified trigger Type 2 diabetes mellitus with unspecified complications Anxiety and depression ([facility])- Primary Morbid (severe) obesity due to excess calories ([facility]) Body mass index (BMI) 50.0-59.9, adult ([facility]) Malignant neoplasm of cervix uteri, unspecified Diabetic polyneuropathy associated with type 2 diabetes mellitus ([facility]) Chronic diastolic heart failure ([facility]) Chronic diastolic heart failure Primary hypertension ([facility]) Unspecified essential hypertension 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 Gastroesophageal reflux disease, unspecified whether esophagitis present Bilateral lower extremity edema Type 2 diabetes mellitus with complication, with long-term current use of insulin ([facility]) Tobacco user Tobacco use disorder Mixed hyperlipidemia ([facility]) Mixed hyperlipidemia Gout, unspecified cause, unspecified chronicity, unspecified site Vitamin deficiency Unspecified vitamin deficiency Gastro-esophageal reflux disease without esophagitis Edema, unspecified Edema Hyperlipidemia, unspecified ([facility]) Encounter for smoking cessation counseling Venous ulcer of right leg ([facility]) Antibiotic-induced yeast infection Primary hypertension ([facility])- Primary Unspecified essential hypertension Diabetic polyneuropathy associated with type 2 diabetes mellitus ([facility]) Chronic diastolic heart failure ([facility]) Chronic diastolic heart failure Bilateral lower extremity edema Morbid (severe) obesity due to excess calories ([facility]) Type 2 diabetes mellitus with complication, with long-term current use of insulin ([facility]) Anxiety and depression ([facility]) Cigarette nicotine dependence without complication Encounter for screening mammogram for malignant neoplasm of breast Insomnia Insomnia, unspecified Non-seasonal allergic rhinitis, unspecified trigger Type 2 diabetes mellitus with unspecified complications Vitamin D deficiency, unspecified Gastro-esophageal reflux disease without esophagitis PAD (peripheral artery disease) ([facility]) Unspecified peripheral vascular disease Gastroesophageal reflux disease, unspecified whether esophagitis present Venous ulcer of right leg ([facility]) documented in this encounter [facility] HealthcareEvaluation note* Diagnosis Obstructive sleep apnea- Primary Obstructive sleep apnea (adult) (pediatric) Pulmonary emphysema, unspecified emphysema type (HCC) Primary hypertension Unspecified essential hypertension Type 2 diabetes mellitus with complication, with long-term current use of insulin ([facility]) Anxiety and depression Bilateral lower extremity edema Pulmonary emphysema, unspecified emphysema type (HCC)- Primary Primary hypertension Unspecified essential hypertension Class 3 severe obesity with serious comorbidity and body mass index (BMI) of 50.0 to 59.9 in adult,unspecified obesity type ([facility] [place]) Obstructive sleep apnea Obstructive sleep apnea (adult) [...] 50.0 to 59.9 in adult,unspecified obesity type ([facility]) Encounter for subsequent annual wellness visit (AWV) [...] 50.0 to 59.9 in adult,unspecified obesity type ([facility]) Tobacco user Tobacco use disorder Other headache [...] complication, with long-term current use of insulin ([facility]) Non-seasonal allergic rhinitis, unspecified trigger Type 2 [...] polyneuropathy associated with type 2 diabetes mellitus ([facility]) Pulmonary emphysema, unspecified emphysema type ([facility]) Critical limb ischemia of right lower extremity ([facility]) PAD (peripheral artery disease) Unspecified peripheral vascular disease Gastroesophageal reflux disease, unspecified whether esophagitis present Bilateral lower extremity edema Venous ulcer of right leg (HCC) Type 2 diabetes mellitus with complication, with long-term current use of insulin ([facility]) Tobacco user Tobacco use disorder Encounter for smoking cessation counseling Kidney stone Calculus of kidney Adrenal mass 1 cm to 4 cm in diameter ([facility]) Radiculopathy, lumbar region Thoracic or lumbosacral neuritis or radiculitis, unspecified Non-seasonal allergic rhinitis, unspecified trigger Type 2 diabetes mellitus with unspecified complications ([facility]) Anxiety and depression- Primary Morbid (severe) obesity due to excess calories ([facility]) Body mass index (BMI) 50.0-59.9, adult ([facility]) Malignant neoplasm of cervix uteri, unspecified ([facility]) Diabetic polyneuropathy associated with type 2 diabetes mellitus ([facility]) Chronic diastolic heart failure (HCC) Chronic diastolic heart failure Primary hypertension Unspecified essential hypertension 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 ([facility]) Gastroesophageal reflux disease, unspecified whether esophagitis present Bilateral lower extremity edema Type 2 diabetes mellitus with complication, with long-term current use of insulin ([facility]) Tobacco user Tobacco use disorder Mixed hyperlipidemia [...] diabetes mellitus (HCC) Chronic diastolic heart failure ([facility]) Chronic diastolic heart failure Bilateral lower extremity edema Morbid (severe) obesity due to excess calories ([facility]) Type 2 diabetes mellitus with complication, with long-term current use of insulin ([facility]) Anxiety and depression Cigarette nicotine dependence without complication Encounter for screening mammogram for malignant neoplasm of breast Insomnia Insomnia, unspecified Non-seasonal allergic rhinitis, unspecified trigger Type 2 diabetes mellitus with unspecified complications ([facility]) Vitamin D deficiency, unspecified Gastro-esophageal reflux disease without esophagitis PAD (peripheral artery disease) Unspecified peripheral vascular disease Gastroesophageal reflux disease, unspecified whether esophagitis present Venous ulcer of right leg (HCC) Cellulitis of left lower extremity- Primary COPD exacerbation ([facility]) Obstructive chronic bronchitis with exacerbation Primary hypertension Unspecified essential hypertension Pulmonary hypertension ([facility]) Other chronic pulmonary heart diseases Morbid (severe) obesity due to excess calories ([facility]) Type 2 diabetes mellitus with complication, with long-term current use of insulin ([facility]) Anxiety and depression Fever, unspecified fever cause Hyperlipidemia, unspecified Tobacco user Tobacco use disorder Encounter for smoking cessation counseling documented in this encounter [facility] HealthcareEvaluation note* Diagnosis Obstructive sleep apnea- Primary Obstructive sleep apnea (adult) (pediatric) Pulmonary emphysema, unspecified emphysema type ([facility]) Primary hypertension ([facility]) Unspecified essential hypertension Type 2 diabetes mellitus with complication, with long-term current use of insulin ([facility]) Anxiety [facility] depression ([facility]) Bilateral lower extremity edema Pulmonary emphysema, unspecified emphysema type ([facility])- Primary Primary hypertension ([facility]) Unspecified essential hypertension Class 3 severe obesity with serious comorbidity and body mass index (BMI) of 50.0 to 59.9 in adult,unspecified obesity type Obstructive sleep apnea Obstructive sleep apnea (adult) (pediatric) Pulmonary hypertension ([facility]) Other chronic pulmonary heart diseases Tobacco user Tobacco use disorder Cardiomegaly Primary hypertension ([facility])- Primary Unspecified essential hypertension Gastroesophageal reflux disease, unspecified whether esophagitis present Type 2 diabetes mellitus with complication, with long-term current use of insulin ([facility]) Mixed hyperlipidemia ([facility]) Mixed hyperlipidemia Tobacco user Tobacco use disorder Encounter for screening mammogram for malignant neoplasm of breast Chronic obstructive pulmonary disease, unspecified Other specified chronic obstructive pulmonary disease Anxiety and depression ([facility]) Edema, unspecified Edema Hyperlipidemia, unspecified ([facility]) Diabetic polyneuropathy associated with type 2 diabetes mellitus ([facility]) Gout, unspecified cause, unspecified chronicity, unspecified site Non-seasonal allergic rhinitis, unspecified trigger Bilateral lower extremity edema COPD exacerbation ([facility]) Obstructive chronic bronchitis with exacerbation Pulmonary emphysema, unspecified emphysema type (CMS/HCC) Venous insufficiency Unspecified venous (peripheral) insufficiency Candidiasis of breast COPD exacerbation (CMS/HCC)- Primary Obstructive chronic bronchitis with exacerbation Pulmonary hypertension ([facility]) Other chronic pulmonary heart diseases Class 3 severe obesity with serious comorbidity and body mass index (BMI) of 50.0 to 59.9 in adult,unspecified obesity type Encounter for subsequent annual wellness visit (AWV) in Medicare patient- Primary Type 2 diabetes mellitus with unspecified complications Pulmonary emphysema, unspecified emphysema type ([facility]) Moderate persistent asthma without complication ([facility]) Primary hypertension ([facility]) Unspecified essential hypertension Type 2 diabetes mellitus with complication, with long-term current use of insulin ([facility]) Class 3 severe obesity with serious comorbidity and body mass index (BMI) of 50.0 to 59.9 in adult,unspecified obesity type Tobacco user Tobacco use disorder Other headache syndrome Malignant neoplasm of cervix uteri, unspecified Other specified disorders of adrenal gland Major depressive disorder, single episode, mild (HCC) ([facility]) Major depressive disorder, single episode, mild Non-pressure chronic ulcer of other part of left lower leg with fat layer exposed Chronic respiratory failure, unspecified whether with hypoxia or hypercapnia Disorder of adrenal gland, unspecified Non-pressure chronic ulcer of other part of right lower leg limited to breakdown of skin ([facility]) Non-recurrent acute suppurative otitis media of left ear without spontaneous rupture of tympanic membrane Primary hypertension ([facility])- Primary Unspecified essential hypertension Insomnia Insomnia, unspecified Type 2 diabetes mellitus with complication, with long-term current use of insulin ([facility]) Non-seasonal allergic rhinitis, unspecified trigger Type 2 diabetes mellitus with unspecified complications Anxiety and depression ([facility]) Gastro-esophageal reflux disease without esophagitis Edema, unspecified Edema Diabetic polyneuropathy associated with type 2 diabetes mellitus ([facility]) Chronic obstructive pulmonary disease, unspecified Pulmonary emphysema, unspecified emphysema type (CMS/HCC) Bilateral lower extremity edema Tobacco user Tobacco use disorder Hyperpigmentation of skin Other dyschromia Primary hypertension (CMS/HCC)- Primary Unspecified essential hypertension Diabetic polyneuropathy associated with type 2 diabetes mellitus ([facility]) Pulmonary emphysema, unspecified emphysema type ([facility]) Critical limb ischemia of right lower extremity ([facility]) PAD (peripheral artery disease) ([facility]) Unspecified peripheral vascular disease Gastroesophageal reflux disease, unspecified whether esophagitis present Bilateral lower extremity edema Venous ulcer of right leg ([facility]) Type 2 diabetes mellitus with complication, with long-term current use of insulin ([facility]) Tobacco user Tobacco use disorder Encounter for smoking cessation counseling Kidney stone Calculus of kidney Adrenal mass 1 cm to 4 cm in diameter ([facility]) Radiculopathy, lumbar region Thoracic or lumbosacral neuritis or radiculitis, unspecified Non-seasonal allergic rhinitis, unspecified trigger Type 2 diabetes mellitus with unspecified complications Anxiety and depression ([facility])- Primary Morbid (severe) obesity due to excess calories ([facility]) Body mass index (BMI) 50.0-59.9, adult ([facility]) Malignant neoplasm of cervix uteri, unspecified Diabetic polyneuropathy associated with type 2 diabetes mellitus ([facility]) Chronic diastolic heart failure ([facility]) Chronic diastolic heart failure Primary hypertension ([facility]) Unspecified essential hypertension 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 Gastroesophageal reflux disease, unspecified whether esophagitis present Bilateral lower extremity edema Type 2 diabetes mellitus with complication, with long-term current use of insulin ([facility]) Tobacco user Tobacco use disorder Mixed hyperlipidemia ([facility]) Mixed hyperlipidemia Gout, unspecified cause, unspecified chronicity, unspecified site Vitamin deficiency Unspecified vitamin deficiency Gastro-esophageal reflux disease without esophagitis Edema, unspecified Edema Hyperlipidemia, unspecified ([facility]) Encounter for smoking cessation counseling Venous ulcer of right leg ([facility]) Antibiotic-induced yeast infection Primary hypertension ([facility] [place])- Primary Unspecified essential hypertension Diabetic polyneuropathy associated with type 2 diabetes mellitus ([facility]) Chronic diastolic heart failure ([facility]) Chronic diastolic heart failure Bilateral lower extremity edema Morbid (severe) obesity due to excess calories ([facility]) Type 2 diabetes mellitus with complication, with long-term current use of insulin ([facility]) Anxiety and depression ([facility]) Cigarette nicotine dependence without complication Encounter for screening mammogram for malignant neoplasm of breast Insomnia Insomnia, unspecified Non-seasonal allergic rhinitis, unspecified trigger Type 2 diabetes mellitus with unspecified complications Vitamin D deficiency, unspecified Gastro-esophageal reflux disease without esophagitis PAD (peripheral artery disease) ([facility]) Unspecified peripheral vascular disease Gastroesophageal reflux disease, unspecified whether esophagitis present Venous ulcer of right leg ([facility]) Cellulitis of left lower extremity- Primary COPD exacerbation ([facility]) Obstructive chronic bronchitis with exacerbation Primary hypertension ([facility]) Unspecified essential hypertension Pulmonary hypertension ([facility]) Other chronic pulmonary heart diseases Morbid (severe) obesity due to excess calories ([facility]) Type 2 diabetes mellitus with complication, with long-term current use of insulin ([facility]) Anxiety and depression ([facility]) Fever, unspecified fever cause documented in this encounter [facility] HealthcareEvaluation note* Diagnosis Obstructive sleep apnea- Primary Obstructive sleep apnea (adult) (pediatric) Pulmonary emphysema, unspecified emphysema type (HCC) Primary hypertension Unspecified essential hypertension Type 2 diabetes mellitus with complication, with long-term current use of insulin ([facility]) Anxiety and depression Bilateral lower extremity edema Pulmonary emphysema, unspecified emphysema type (HCC)- Primary Primary hypertension Unspecified essential hypertension Class 3 severe obesity with serious comorbidity and body mass index (BMI) of 50.0 to 59.9 in adult,unspecified obesity type ([facility]) Obstructive sleep apnea Obstructive sleep apnea (adult) [...] 50.0 to 59.9 in adult,unspecified obesity type ([facility] [place]) Encounter for subsequent annual wellness visit (AWV) in Medicare patient- Primary Type 2 diabetes mellitus with unspecified complications ([facility]) Pulmonary emphysema, unspecified emphysema type ([facility]) Moderate persistent asthma without complication (HCC) Primary hypertension Unspecified essential hypertension Type 2 diabetes mellitus with complication, with long-term current use of insulin ([facility]) Class 3 severe obesity with serious comorbidity and body mass index (BMI) of 50.0 to 59.9 in adult,unspecified obesity type ([facility] [place]) Tobacco user Tobacco use disorder Other headache syndrome Malignant neoplasm of cervix uteri, unspecified (HCC) Other specified disorders of adrenal gland ([facility]) Major depressive disorder, single episode, mild Major depressive disorder, single episode, mild Non-pressure chronic ulcer of other part of left lower leg with fat layer exposed ([facility]) Chronic respiratory failure, unspecified whether with hypoxia or hypercapnia ([facility]) Disorder of adrenal gland, unspecified ([facility]) Non-pressure chronic ulcer of other part of right lower leg limited to breakdown of skin ([facility]) Non-recurrent acute suppurative otitis media of left ear without spontaneous rupture of tympanic membrane Primary hypertension- Primary Unspecified essential hypertension Insomnia Insomnia, unspecified Type 2 diabetes mellitus with complication, with long-term current use of insulin ([facility]) Non-seasonal allergic rhinitis, unspecified trigger Type 2 diabetes mellitus with unspecified complications ([facility]) Anxiety and depression Gastro-esophageal reflux disease without esophagitis Edema, unspecified Edema Diabetic polyneuropathy associated with type 2 diabetes mellitus ([facility]) Chronic obstructive pulmonary disease, unspecified (HCC) Pulmonary emphysema, unspecified emphysema type ([facility]) Bilateral lower extremity edema Tobacco user Tobacco use disorder Hyperpigmentation of skin Other dyschromia Primary hypertension- Primary Unspecified essential hypertension Diabetic polyneuropathy associated with type 2 diabetes mellitus ([facility]) Pulmonary emphysema, unspecified emphysema type (HCC) Critical limb ischemia of right lower extremity ([facility]) PAD (peripheral artery disease) Unspecified peripheral vascular disease Gastroesophageal reflux disease, unspecified whether esophagitis present Bilateral lower extremity edema Venous ulcer of right leg ([facility]) Type 2 diabetes mellitus with complication, with long-term current use of insulin ([facility]) Tobacco user Tobacco use disorder Encounter for smoking cessation counseling Kidney stone Calculus of kidney Adrenal mass 1 cm to 4 cm in diameter ([facility]) Radiculopathy, lumbar region Thoracic or lumbosacral neuritis or radiculitis, unspecified Non-seasonal allergic rhinitis, unspecified trigger Type 2 diabetes mellitus with unspecified complications ([facility]) Anxiety and depression- Primary Morbid (severe) obesity due to excess calories ([facility]) Body mass index (BMI) 50.0-59.9, adult ([facility]) Malignant neoplasm of cervix uteri, unspecified (HCC) [...] complication, with long-term current use of insulin ([facility]) Tobacco user Tobacco use disorder Mixed hyperlipidemia Mixed hyperlipidemia Gout, unspecified cause, unspecified chronicity, unspecified site Vitamin deficiency Unspecified vitamin deficiency Gastro-esophageal reflux disease without esophagitis Edema, unspecified Edema Hyperlipidemia, unspecified Encounter for smoking cessation counseling Venous ulcer of right leg ([facility]) Antibiotic-induced yeast infection Primary hypertension- Primary Unspecified essential hypertension Diabetic polyneuropathy associated with type 2 diabetes mellitus (HCC) Chronic diastolic heart failure (HCC) Chronic diastolic heart failure Bilateral lower extremity edema Morbid (severe) obesity due to excess calories ([facility]) Type 2 diabetes mellitus with complication, with long-term current use of insulin ([facility]) Anxiety and depression Cigarette nicotine dependence without [...] Morbid (severe) obesity due to excess calories ([facility]) Type 2 diabetes mellitus with complication, with long-term current use of insulin ([facility]) Anxiety and depression Fever, unspecified fever cause Encounter for subsequent annual wellness visit (AWV) in Medicare patient- Primary Mixed hyperlipidemia Mixed hyperlipidemia Type 2 diabetes mellitus with complication, with long-term current use of insulin ([facility]) Bilateral lower extremity edema Gastro-esophageal reflux disease [...] Morbid (severe) obesity due to excess calories ([facility]) Type 2 diabetes mellitus with hyperglycemia, with long-term current use of insulin (HCC) documented in this encounter [facility] HealthcareEvaluation note* Diagnosis Obstructive sleep apnea- [...] 50.0 to 59.9 in adult,unspecified obesity type ([facility]) Obstructive sleep apnea Obstructive sleep apnea (adult) [...] 50.0 to 59.9 in adult,unspecified obesity type ([facility] [place]) Encounter for subsequent annual wellness visit (AWV) in Medicare patient- Primary Type 2 diabetes mellitus with unspecified complications ([facility]) Pulmonary emphysema, unspecified emphysema type ([facility]) Moderate persistent asthma without complication (HCC) Primary hypertension Unspecified essential hypertension Type 2 diabetes mellitus with complication, with long-term current use of insulin ([facility]) Class 3 severe obesity with serious comorbidity and body mass index (BMI) of 50.0 to 59.9 in adult,unspecified obesity type ([facility] [place]) Tobacco user Tobacco use disorder Other headache syndrome Malignant neoplasm of cervix uteri, unspecified (HCC) Other specified disorders of adrenal gland ([facility]) Major depressive disorder, single episode, mild Major depressive disorder, single episode, mild Non-pressure chronic ulcer of other part of left lower leg with fat layer exposed ([facility]) Chronic respiratory failure, unspecified whether with hypoxia or hypercapnia ([facility]) Disorder of adrenal gland, unspecified ([facility]) Non-pressure chronic ulcer of other part of right lower leg limited to breakdown of skin ([facility]) Non-recurrent acute suppurative otitis media of left ear without spontaneous rupture of tympanic membrane Primary hypertension- Primary Unspecified essential hypertension Insomnia Insomnia, unspecified Type 2 diabetes mellitus with complication, with long-term current use of insulin ([facility]) Non-seasonal allergic rhinitis, unspecified trigger Type 2 diabetes mellitus with unspecified complications ([facility]) Anxiety and depression Gastro-esophageal reflux disease without esophagitis Edema, unspecified Edema Diabetic polyneuropathy associated with type 2 diabetes mellitus ([facility]) Chronic obstructive pulmonary disease, unspecified ([facility]) Pulmonary emphysema, unspecified emphysema type ([facility]) Bilateral lower extremity edema Tobacco user Tobacco use disorder Hyperpigmentation of skin Other dyschromia Primary hypertension- Primary Unspecified essential hypertension Diabetic polyneuropathy associated with type 2 diabetes mellitus ([facility]) Pulmonary emphysema, unspecified emphysema type (HCC) Critical limb ischemia of right lower extremity ([facility]) PAD (peripheral artery disease) Unspecified peripheral vascular disease Gastroesophageal reflux disease, unspecified whether esophagitis present Bilateral lower extremity edema Venous ulcer of right leg ([facility]) Type 2 diabetes mellitus with complication, with long-term current use of insulin ([facility]) Tobacco user Tobacco use disorder Encounter for smoking cessation counseling Kidney stone Calculus of kidney Adrenal mass 1 cm to 4 cm in diameter ([facility]) Radiculopathy, lumbar region Thoracic or lumbosacral neuritis or radiculitis, unspecified Non-seasonal allergic rhinitis, unspecified trigger Type 2 diabetes mellitus with unspecified complications (HCC) Anxiety and depression- Primary Morbid (severe) obesity due to excess calories ([facility]) Body mass index (BMI) 50.0-59.9, adult ([facility]) Malignant neoplasm of cervix uteri, unspecified (HCC) [...] Morbid (severe) obesity due to excess calories ([facility]) Type 2 diabetes mellitus with complication, with [...] Morbid (severe) obesity due to excess calories ([facility]) Type 2 diabetes mellitus with complication, with [...] Morbid (severe) obesity due to excess calories ([facility] [place]) Encounter for dietary consultation- Primary Type 2 diabetes mellitus with hyperglycemia, with long-term current use of insulin ([facility]) Vitamin D deficiency Primary hypertension Unspecified essential hypertension Insulin long-term use ([facility]) Encounter for long-term (current) use of insulin Hyperlipemia, mixed Mixed hyperlipidemia Microalbuminuria Proteinuria Class 3 severe obesity due to excess calories with serious comorbidity and body mass index (BMI) of50.0 to 59.9 in adult ([facility] [place]) documented in this encounter [facility] HealthcareEvaluation note* Diagnosis Obstructive sleep apnea- Primary Obstructive sleep apnea (adult) (pediatric) Pulmonary emphysema, unspecified emphysema type (HCC) Primary hypertension Unspecified essential hypertension Type 2 diabetes mellitus with complication, with long-term current use of insulin ([facility]) Anxiety and depression Bilateral lower extremity edema Pulmonary emphysema, unspecified emphysema type (HCC)- Primary Primary hypertension Unspecified essential hypertension Class 3 severe obesity with serious comorbidity and body mass index (BMI) of 50.0 to 59.9 in adult,unspecified obesity type ([facility] [place]) Obstructive sleep apnea Obstructive sleep apnea (adult) (pediatric) Pulmonary hypertension (HCC) Other chronic pulmonary heart diseases Tobacco user Tobacco use disorder Cardiomegaly Primary hypertension- Primary Unspecified essential hypertension Gastroesophageal reflux disease, unspecified whether esophagitis present Type 2 diabetes mellitus with complication, with long-term current use of insulin ([facility]) Mixed hyperlipidemia Mixed hyperlipidemia Tobacco user Tobacco use disorder Encounter for screening mammogram for malignant neoplasm of breast Chronic obstructive pulmonary disease, unspecified (HCC) Other specified chronic obstructive pulmonary disease (HCC) Anxiety and depression Edema, unspecified Edema Hyperlipidemia, unspecified Diabetic polyneuropathy associated with type 2 diabetes mellitus ([facility]) Gout, unspecified cause, unspecified chronicity, unspecified site [...] 50.0 to 59.9 in adult,unspecified obesity type ([facility] [place]) Encounter for subsequent annual wellness visit (AWV) in Medicare patient- Primary Type 2 diabetes mellitus with unspecified complications (HCC) Pulmonary emphysema, unspecified emphysema type ([facility]) Moderate persistent asthma without complication (HCC) Primary hypertension Unspecified essential hypertension Type 2 diabetes mellitus with complication, with long-term current use of insulin ([facility]) Class 3 severe obesity with serious comorbidity and body mass index (BMI) of 50.0 to 59.9 in adult,unspecified obesity type ([facility] [place]) Tobacco user Tobacco use disorder Other headache syndrome Malignant neoplasm of cervix uteri, unspecified (HCC) Other specified disorders of adrenal gland ([facility]) Major depressive disorder, single episode, mild Major depressive disorder, single episode, mild Non-pressure chronic ulcer of other part of left lower leg with fat layer exposed ([facility]) Chronic respiratory failure, unspecified whether with hypoxia or hypercapnia ([facility]) Disorder of adrenal gland, unspecified ([facility]) Non-pressure chronic ulcer of other part of right lower leg limited to breakdown of skin ([facility]) Non-recurrent acute suppurative otitis media of left ear without spontaneous rupture of tympanic membrane Primary hypertension- Primary Unspecified essential hypertension Insomnia Insomnia, unspecified Type 2 diabetes mellitus with complication, with long-term current use of insulin ([facility]) Non-seasonal allergic rhinitis, unspecified trigger Type 2 diabetes mellitus with unspecified complications ([facility]) Anxiety and depression Gastro-esophageal reflux disease without esophagitis Edema, unspecified Edema Diabetic polyneuropathy associated with type 2 diabetes mellitus (HCC) Chronic obstructive pulmonary disease, unspecified (HCC) Pulmonary emphysema, unspecified emphysema type ([facility]) Bilateral lower extremity edema Tobacco user Tobacco use disorder Hyperpigmentation of skin Other dyschromia Primary hypertension- Primary Unspecified essential hypertension Diabetic polyneuropathy associated with type 2 diabetes mellitus (HCC) Pulmonary emphysema, unspecified emphysema type (HCC) Critical limb ischemia of right lower extremity ([facility]) PAD (peripheral artery disease) Unspecified peripheral vascular disease Gastroesophageal reflux disease, unspecified whether esophagitis present Bilateral lower extremity edema Venous ulcer of right leg ([facility]) Type 2 diabetes mellitus with complication, with long-term current use of insulin ([facility]) Tobacco user Tobacco use disorder Encounter for smoking cessation counseling Kidney stone Calculus of kidney Adrenal mass 1 cm to 4 cm in diameter ([facility]) Radiculopathy, lumbar region Thoracic or lumbosacral neuritis or radiculitis, unspecified Non-seasonal allergic rhinitis, unspecified trigger Type 2 diabetes mellitus with unspecified complications ([facility]) Anxiety and depression- Primary Morbid (severe) obesity due to excess calories ([facility]) Body mass index (BMI) 50.0-59.9, adult ([facility]) Malignant neoplasm of cervix uteri, unspecified ([facility]) Diabetic polyneuropathy associated with type 2 diabetes mellitus ([facility]) Chronic diastolic heart failure ([facility]) Chronic diastolic heart failure Primary hypertension Unspecified essential hypertension 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 ([facility]) Gastroesophageal reflux disease, unspecified whether esophagitis present Bilateral lower extremity edema Type 2 diabetes mellitus with complication, with long-term current use of insulin ([facility]) Tobacco user Tobacco use disorder Mixed hyperlipidemia Mixed hyperlipidemia Gout, unspecified cause, unspecified chronicity, unspecified site Vitamin deficiency Unspecified vitamin deficiency Gastro-esophageal reflux disease without esophagitis Edema, unspecified Edema Hyperlipidemia, unspecified Encounter for smoking cessation counseling Venous ulcer of right leg ([facility]) Antibiotic-induced yeast infection Primary hypertension- Primary Unspecified essential hypertension Diabetic polyneuropathy associated with type 2 diabetes mellitus ([facility]) Chronic diastolic heart failure (HCC) Chronic diastolic heart failure Bilateral lower extremity edema Morbid (severe) obesity due to excess calories ([facility]) Type 2 diabetes mellitus with complication, with long-term current use of insulin ([facility]) Anxiety and depression Cigarette nicotine dependence without complication Encounter for screening mammogram for malignant neoplasm of breast Insomnia Insomnia, unspecified Non-seasonal allergic rhinitis, unspecified trigger Type 2 diabetes mellitus with unspecified complications ([facility]) Vitamin D deficiency, unspecified Gastro-esophageal reflux disease without esophagitis PAD (peripheral artery disease) Unspecified peripheral vascular disease Gastroesophageal reflux disease, unspecified whether esophagitis present Venous ulcer of right leg ([facility]) Cellulitis of left lower extremity- Primary COPD exacerbation ([facility]) Obstructive chronic bronchitis with exacerbation Primary hypertension Unspecified essential hypertension Pulmonary hypertension (HCC) Other chronic pulmonary heart diseases Morbid (severe) obesity due to excess calories ([facility]) Type 2 diabetes mellitus with complication, with [...] Morbid (severe) obesity due to excess calories ([facility]) Tobacco user Tobacco use disorder Encounter for smoking cessation counseling documented in this encounter [facility]Evaluation noteNo assessment information availableFirGeorgetown Behavioral Hospital Work Phone: History general Narrative - Reported* Type Description Date Medical History diabetes mallitus Medical HistoryCOPDMedical HistoryADRENAL MASS 1 CM TO 4 CM IN DIAMETERMedical HistoryARTHRITISMedical HistoryASTHMAMedical HistoryHEADACHEMedical History HYPERTENSIONMedical HistoryKIDNEY STONESMedical HistoryLEFT FLANK PAINMedical HistoryMIXED INCONTINENCEMedical HistoryPROTEINURIAMedical HistorySMOKERSurgical [id number] Historytoe surgerySurgical HistoryLAPAROSCOPIC CHOLECYSTECTOMYHospitalization [id number] HistorySEE [place] [employer] Other Hospital course Narrative No data available for this section [facility] progress note No data available for this section [facility] reason for referral (narrative) , Referral to Dr. Cortés Referred by: REGLA PHIPPS, Elbert Joya [facility] reason for referral (narrative)No reason for referral information availableFirBlanchard Valley Health [facility] Work Phone: Advance Directives No Advanced Directives Records FoundDocuments on File TypeDate RecordedPatient RepresentativeExplanationAdvance Directives and Living WillPower of Vice Chairman Advance Directive Response Recorded Date/ Time Advance [...] section and content) DATE CREATED AUTHOR 10/30/2019 [facility] DATE CREATED AUTHOR AUTHOR'S ORGANIZ ATION 09/15/2020 [facility] DATE CREATED AUTHOR AUTHOR'S ORGANIZ ATION 12/19/2022 [facility] DATE CREATED AUTHOR AUTHOR'S ORGANIZ ATION 01/30/2025 [facility] DATE CREATED AUTHOR AUTHOR'S ORGANIZ ATION 04/12/2025 [facility] DATE CREATED AUTHOR AUTHOR'S ORGANIZ ATION 04/29/2025 [facility] DATE CREATED AUTHOR AUTHOR'S ORGANIZ ATION 05/08/2025 [facility] Care Team (unrecognized sect ion and content) Team MemberRelationshipSpecialtyStart DateEnd Date Ty Amin MD PCP - GeneralFamily Medicine01/05/23Team MemberRelationshipSpecialtyStart DateEnd Date Ty Amin MD PCP - [facility]Mer[facility] Hospitally Medicine01/05/23Team MemberRelationshipSpecialtyStart DateEnd Date Ty Amin MD [address] [place] [address] PCP - GeneralFamily Medicine09/20/23 Mckayla Blas NP [address] [place] [address] PCP - [facility] Mckyala Blas NP [address] [place] [address] Nurse PractitionerMercyone Cl[facility] Rehabilitation Hospitally Medicine09/20/23Team MemberRelationshipSpecialtyStart DateEnd Date Ty Amin MD [address] [place] [address] PCP - Generalmi Medicine09/20/23 Mckayla Blas NP [address] [place] [address] PCP - [facility] Mckayla Blas NP [address] [place] [address] [facility]09/20/23Team MemberRelationshipSpecialtyStart DateEnd Date Ty Amin MD [address] [place] [address] PCP - [facility]09/20/23 Mckayla Blas NP [address] [place] [address] [place] [address] Mckayla Blas NP [address] [place] [address] [facility]09/20/23Team MemberRelationshipSpecialtyStart DateEnd Date Ty Amin MD [address] [place] [address] PCP - [facility]09/20/23 Mckayla Blas NP [address] [place] [address] [place] [address] Mckayla Blas NP [address] [place] [address] [facility]09/20/23Team MemberRelationshipSpecialtyStart DateEnd Date Ty Amin MD [address] [place] [address] PCP - [facility]09/20/23 Mckayla Blas NP [address] [place] [address] [place] [address]/ Mckayla Blas NP [address] [place] [address] [facility]09/20/23Team MemberRelationshipSpecialtyStart DateEnd Date Ty Amin MD [address] [place] [address] PCP - [facility]09/20/23 Mckayla Blas NP [address] [place] [address] [place] [address]/ Mckayla Blas NP [address] [place] [address] [facility]09/20/23Team MemberRelationshipSpecialtyStart DateEnd Date Ty Amin MD [address] [place] [address] PCP - [facility]09/20/23 Mckayla Blas NP [address] [place] [address] [facility] Mckayla Blas NP [address] [place] [address] [facility]09/20/23Team MemberRelationshipSpecialtyStart DateEnd Date Ty Amin MD [address] [place] [address] PCP - [facility]09/20/23 Mckayla Blas NP [address] [place] [address] [place] [address]/ Mckayla Blas NP [address] [place] [address] [facility]09/20/23Team MemberRelationshipSpecialtyStart DateEnd Date Ty Amin MD [address] [place] [address] PCP - [facility]09/20/23 Mckayla Blas NP [address] [place] [address] PCP [facility]/ Mckayla Blas NP [address] [place] [address] Nurse PractitionerMer[facility] Hospitally Medicine09/20/23Team MemberRelationshipSpecialtyStart DateEnd Date Ty Amin MD [address] [place] [address] [facility] - [facility]09/20/23 Mckayla Blas NP [address] [place] [address] PCP - [facility] Mckayla Blas NP [address] [place] [address] [facility]09/20/23Te MemberRelationshipSpecialtyStart DateEnd Date Ty Amin MD [address] [place] [address] PCP - [facility]Wal[facility] Medicine09/20/23 Mckayla Blas NP [address] [place] [address] PCP - [facility] Mckayla Blas NP [address] [place] [address] Nurse Pract[facility] Medicine09/20/23Team MemberRelationshipSpecialtyStart DateEnd Date Ty Amin MD [address] [place] [address] PCP - [facility]09/20/23 Mckayla Blas NP [address] [place] [address] [place] [address] Mckayla Blas NP [address] [place] [address] [facility]09/20/23Team MemberRelationshipSpecialtyStart DateEnd Date Ty Amin MD [address] [place] [address] PCP - [facility]09/20/23 Mckayla Blas NP [address] [place] [address] [place] [address] Mckayla Blas NP [address] [place] [address] [facility]09/20/23Team MemberRelationshipSpecialtyStart DateEnd Date Ty Amin MD [address] [place] [address] PCP - [facility]09/20/23 Mckayla Blas NP [address] [place] [address] [place] [address] Mckayla Blas NP [address] [place] [address] [facility] Medicine09/20/23Team MemberRelationshipSpecialtyStart DateEnd Date Ty Amin MD [address] [place] [address] PCP - [facility]09/20/23 Mckayla Blas NP [address] [place] [address] PCP [facility]/ Mckayla Blas NP [address] [place] [address] [facility]09/20/23Team MemberRelationshipSpecialtyStart DateEnd Date Ty Amin MD [address] [place] [address] PCP - [facility]09/20/23 Mckayla Blas NP [address] [place] [address] PCP [facility]/ Mckayla Blas NP [address] [place] [address] [facility]09/20/23Team MemberRelationshipSpecialtyStart DateEnd Date Ty Amin MD [address] [place] [address] PCP - [facility]09/20/23 Mckayla Blas NP [address] [place] [address] [place] [address]/ Mckayla Blas NP [address] [place] [address] [facility]09/20/23Team MemberRelationshipSpecialtyStart DateEnd Date Ty Amin MD [address] [place] [address] PCP - [facility]09/20/23 Mckayla Blas NP [address] [place] [address] [place] [address]/ Mckayla Blas NP [address] [place] [address] [facility]09/20/23Team MemberRelationshipSpecialtyStart DateEnd Date Ty Amin MD [address] [place] [address] PCP - [facility]09/20/23 Mckayla Blas NP [address] [place] [address] [facility] Mckayla Blas NP [address] [place] [address] Nurse [facility] Medicine09/20/23Team MemberRelationshipSpecialtyStart DateEnd Date Ty Amin MD [address] [place] [address] PCP - [facility]09/20/23 Mckayla Blas NP [address] [place] [address] [place] [address]/ Mckayla Blas NP [address] [place] [address] [facility]09/20/23Team MemberRelationshipSpecialtyStart DateEnd Date Ty Amin MD [address] [place] [address] PCP - [facility] Medicine09/20/23 Mckayla Blas NP [address] [place] [address] [facility]09/20/23Team MemberRelationshipSpecialtyStart DateEnd Date Ty Amin MD [address] [place] [address] PCP - GeneralFamily Medicine09/20/23 Mckayla Blas NP [address] [place] [address] Nurse [facility] Medicine09/20/23Team MemberRelationshipSpecialtyStart DateEnd Date Ty Amin MD [address] [place] [address] [facility] - [facility]09/20/23 Mckayla Blas NP [address] [place] [address] Nurse Pract[facility] Medicine09/20/23Team MemberRelationshipSpecialtyStart DateEnd Date Ty Amin MD [address] [place] [address] PCP - [facility] Medicine09/20/23 Mckayla Blas NP [address] [place] [address] Nurse Pract[facility] Medicine09/20/23Team MemberRelationshipSpecialtyStart DateEnd Date Ty Amin MD [address] [place] [address] PCP - Generalmi Medicine09/20/23 Mckayla Blas NP [address] [place] [address] [facility]09/20/23 Team Status: Active Member Role Status Dates Mckayla Blas , [employer] Primary Care Provider Active Team Status: Active Member Role Status Dates Mckayla Krystal Blas , [employer] Primary Care Provider Active Start: March 25, 2025 Price Arora , DOAttending ProviderActiveStart: March 25, 2025 Team Status: Active Member Role Status Dates Mckayla Krystal Blas , [employer] Primary Care Provider Active Start: March 26, 2025 SASHA WellsMAttending ProviderActiveStart: March 26, 2025 Team Status: Inactive Member Role Status Dates Mckayla Blas , [employer] Primary Care Provider Active Start: April 06, 2025 End: April 06, 2025Mckayla Blas , [employer]CAttending ProviderActiveStart: April 06, 2025 End: April 06, 2025 Team Status: Active Member Role/Relationship Status Dates Mckayla Krystal Blas , [employer] Primary Care Provider Active Team Status: Active Member Role/Relationship Status Dates Mckayla Krystal Blas , [employer] Primary Care Provider Active Start: March 25, 2025 Price Arora , DOAttending ProviderActiveStart: March 25, 2025 Team Status: Active Member Role/Relationship Status Dates Mckayla Krystal Blas , [employer] Primary Care Provider Active Start: March 26, 2025 SASHA WellsMAttending ProviderActiveStart: March 26, 2025 Team Status: Inactive Member Role/Relationship Status Dates Mckayla Krystal Blas , [employer] Primary Care Provider Active Start: April 06, 2025 End: April 06, 2025Mckayla Blas , [employer]CAttending ProviderActiveStart: April 06, 2025 End: April 06, 2025 Team Status: Inactive Member Role/Relationship Status Dates Mckayla Krystal Blas , [employer] Primary Care Provider Active Start: April 29, 2025 End: April 29, 2025Mckayla Blas , [employer]CAttending ProviderActiveStart: April 29, 2025 End: April 29, 2025Team MemberRelationshipSpecialtyStart DateEnd Date Ty Amin MD PCP - [facility]09/20/23 Mckayla Blas NP [address] [place] [address] PCP - [facility] Mckayla Blas NP [facility]09/20/23Team MemberRelationshipSpecialtyStart DateEnd Date Ty Amin MD PCP - [facility] Ty Amin MD PCP - [facility]09/20/23 Mckayla Blas NP [address] [place] [address] [place] [address] Mckayla Blas NP [facility]09/20/23Team MemberRelationshipSpecialtyStart DateEnd Date Ty Amin MD PCP - [facility]09/20/23 Mckayla Blas NP [address] [place] [address] Mckayla Blas NP Nurse PractitionerFamily [place]09/20/23 REASON FOR VISIT (unrecogniz ed section and [...] BE BASED ON THE PRIMARY CLINICAL RECORDS. [employer] provides no warranty or guarantee of the accuracy or completeness of information in this document.
== END 2025-05-11 11:44 | disposition home or self-care (01) ==
LOC: WC 11:44
PROVIDERS: PCP Nurse Practitioner; Visit Provider Physician Assistant
DX: I87.311 Chronic venous hypertension (idiopathic) with ulcer of right lower extremity (principal); L97.812 Non-pressure chronic ulcer of other part of right lower leg with fat layer exposed
CPT/HCPCS: 29581

== ENCOUNTER 2025-05-13 10:24 | Outpatient (OUT) | payer MEDICARE, SELFPAY ==
--- OUTSIDE RECORDS SUMMARY | 2024-12-02 04:30 | XMS_ITS ---
Author Organization The [facility] in [place] Address [address] [place] [address] Care Team Providers Care Tool Room Gear 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 Name Role Phone Mckayla Blas CNP Primary Care Provider Unavail Armando Carroll Unavailable [phone] REASON FOR VISIT 1YEAR-COPD Encounters Encounter Location Date Provider Diagnosis Pulmonary Medicine [place] [address] [place] [address] 12/02/2024 Armando Yañez Plan Of Treatment No Information Progress Notes * Mitzi MACIAS LDOB:[birth year] (54 yo F)Acc No.[id number]:12/02/2024 UNLOCKED PROGRESS NOTE Follow Up Patient: Mitzi COX :?Armando Yañez, DODOB:1970???Age:54 Y ???Sex:FemaleDate:12/02/2024Phone:[phone]:[address] [place], [place] [address]Pcp:Mckayla Blas CNP Subjective: * Chief Complaints: * 1 . 1YEAR-COPD. * Medical History: Objective: * Vitals: Assessment: Plan: * Treatment: * * Electronic signature of Armando Yañez DO on 05/13/2025 at 10:30 AM ESTSign off status: PendingVisit Status:?N/S N/C (No Show/No Charge) * Provider: Tray Yañez DO Date: 0 12/02/2024 Generated for Printing/Faxing/eTransmitting on:?05/13/2025 10:30 AM EST
--- OUTSIDE RECORDS SUMMARY | 2025-05-13 10:30 | XMS_ITS | Patient Health Record ---
Author Organization The [facility] in [place] Address [address] [place] [address] Care Team Providers Care Utility System Repairer Name Role Phone Mckayla Blas CNP Primary Care Provider Unavail able Armando Yañez Unavailable [phone] Allergies No Known Allergies Results Component Value Reference Range Notes CBC AUTO DIFF (Not yet revie wed by provider) Interpretation: Performing Lab: Notes/Report: [facility] , White Blood Count 12.8 4.0-11.0 10 3/uL Red Blood Count5.524.20-5.40 10 6/uTTmpvgsmhnw11.112.0-16.0 g/pQJsdnzzvdjv07.9 36.0-48.0 %Mean Corpuscular Iqlalv50.281.0-99.0 fLMean Corpuscular Hemoglobin 29.226.7-34.0 pgMean Corpuscular HGB Conc31.629.9-35.2 g/dLRed Cell Distribution Width14.611.0-15.0 %Platelet Bpnsq166927-093 10 3/uLMean Platelet Kgbhir52.89.5- 13.5 fLNeutrophils Percent Auto67.043.0-75.0 %Lymphocytes Percent Auto25.120.5- 60.0 %Monocytes Percent Auto5.21.7-12.0 %Eosinophils Percent Auto1.90.9-7.0 % Basophils Percent Auto0.50.2-2.0 %Immature Granulocytes Pct Auto0.30.0-0.5 % Neutrophils Absolute Auto8.61.4-6.5 10 3/uLLymphocytes Absolute Auto3.21.2-3.8 10 3/uLMonocytes Absolute Auto0.70.3-0.8 10 3/uLEosinophils Absolute Auto0.20.0- 0.7 10 3/uLBasophils Absolute Auto0.10.0-0.1 10 3/uLImmature Granulocytes Abs Auto0.040.00-0.03 10 3/uLPerforming Lab:see noteML - [facility] LB PROF CHEM 8 (BAS METB) (Not yet reviewed by provider) Interpretation: Performing Lab: Notes/Report: [facility] ,Ailggc868052-677 mmol/LPotassium4.23.5-5.1 mmol/UEelmchux37232-423 mmol/LCarbon Htxchfl36.521.0-32.0 mmol/LAnion Gap11.1Xjvsnfv48898-556 mg/dLBlood Urea Vkxnuhuw70.07.0-18.0 mg/dLCreatinine0.820.55-1.02 mg/dLEstimated GFR ( Katty>60>=60 mL/min/1.73m 2Estimated GFR (Non- Kristen>60>=60 mL/min/1.73m 2BUN Creatinine Ratio19.7Vidgkvi7.08.5-10.1 mg/dLPerforming Lab:see noteML - [facility] LB Reason For Referral No Information [...] Duration: 90 DaysActiveVitamin D (Ergocalciferol) 1.25 MG (14501 UT)Oral; Duration: 90 DaysActiveBreztri Aerosphere 160-9-4.8 MCG/ACTInhalation; Duration: 30 DaysActiveSimvastatin 10 MG Oral; Duration: 90 DaysActiveRoflumilast 250 MCGOral; Duration: 28 DaysActive Immunizations Vaccine Route Administration Date Status Comme nts Flu, Fluzone (09674) 6-35mo, multi-dose vial (4273-3697) Unknown 05/18/2023 Administered Pneumococcal (Pneumovax 23)Fclxvse7604/16/20178773EqxnhhdbsfpzAOJC-KLO-7 (COVID 19 Pfizer 30mcg/0.3mL)Jvsocbp1907/19/2021dministered Social History Tobacco Use: Social History Observation [...] due to ty pe 2 diabetes mellitus (0618758281337) Type 2 diabetes mellitus with foot ulcer (E11.621) ActiveconfirmedProblemMorbid obesity (disorder) (034910080)Morbid (severe) obesity due to excess calories (E66.01)ActiveconfirmedProblemVenous ulcer of lower extremity due to chronic peripheral venous hypertension (547798362182605) Chronic venous hypertension (idiopathic) with ulcer of left lower extremity (I87.312)ActiveconfirmedProblemChronic non-pressure ulcer of calf extending to fat level (65607586673282088)Non-pressure chronic ulcer of other part of right lower leg with fat layer exposed (L97.812)ActiveconfirmedProblemChronic ulcer of skin of lower leg (disorder) (61775868060076945)Non-pressure chronic ulcer of other part of left lower leg limited to breakdown of skin (L97.821)Active confirmedProblemNon-pressure chronic ulcer of other part of left lower leg with fat layer exposed (L97.822)ActiveconfirmedProblemLong-term current use of inhaled steroid (264107596)senior living (current) use of inhaled steroids (Z79.51) ActiveconfirmedProblemCOPD - Chronic obstructive pulmonary disease (54595219) COPD (chronic obstructive pulmonary disease) (J44.9)ActiveconfirmedProblem Gastroesophageal reflux disease (494549538)GERD (gastroesophageal reflux disease) (K21.9)ActiveconfirmedProblemHypertension (83710391)HTN (hypertension) (I10)ActiveconfirmedProblemObstructive sleep apnea syndrome (84506194)DANIEL (obstructive sleep apnea) (G47.33)ActiveconfirmedProblemLumbar radiculopathy (496638756)Lumbar radiculopathy (M54.16)ActiveconfirmedProblemDiabetes mellitus type 2 (disorder) (43904798)DM2 (diabetes mellitus, type 2) (E11.9)Active confirmedProblemMental disorder caused by drug (553037727)Cigarette nicotine dependence with nicotine-induced disorder (F17.219)ActiveconfirmedProblem Leukocytosis (471038054)Leukocytosis (D72.829)ActiveconfirmedProblemAcute exacerbation of chronic obstructive airways disease (597881901)COPD with exacerbation (J44.1)ActiveconfirmedProblemLong-term current use of insulin (291966507)Current use of insulin (Z79.4)ActiveconfirmedProblemIdiopathic chronic venous hypertension of both lower extremities with ulcer (I87.313)Active confirmedProblemNon-prs chr ulcer oth prt l low leg limited to brkdwn skin (L97.821)ActiveconfirmedProblemStasis dermatitis co-occurrent with venous ulcer of right lower extremity due to chronic peripheralvenous hypertension (743200748751728)Idiopathic chronic venous hypertension of right lower extremity with ulcer (I87.311)ActiveconfirmedProblemChronic venous hypertension with ulcer and inflammation involving left side (I87.332)ActiveconfirmedProblemAbnormal arterial blood gas (720427770)Elevated carbon dioxide level (R79.81)Active confirmedProblemSkin ulcer of right knee, limited to breakdown of skin (L97.811) ActiveconfirmedProblemDiabetes mellitus (75792207)Diabetes mellitus (E11.9) Activeconfirmed Encounters Encounter Location Date Provider Diagnosis Pulmonary Medicine [address] [address] 12/02/2024 Armando Yañez Plan Of Treatment Pending Test Test Name Order Date CBC AUTO DIFF 08/27/2024 PROF CHEM 8 (BAS METB) 08/27/2024 VC SEGMENTAL PRESSURES 04/24/2024 Insurance Providers Payer Name Payer Address Payer Phone Subscriber Number Group Number Insured Name Patient Relationship to Insured Coverage Start Date Coverage End Date [facility] [employer] PRIMARY MEDICARE [address] [place] [phone] [id number] Ottoniel Macias - patient is the insured [...] (hyperlipidemia) E78.5 Elevated carbon dioxide level R79.81 manager intermediate (current) use of inhaled stero ids Z79.51 Anxiety and depression F41.8 GERD (gastroesophageal reflux disease) K 21.9 Surgical History Surgery Date(Month/Year) hysterectomy cholecystectomytoe surgeryHospitalization History Reason Date(Month/Year) Pneumonia -[facility] 08/31/2023 COPD Exacerbation-[facility] 09/10/2023
--- OUTSIDE RECORDS SUMMARY | 2025-05-13 10:30 | XMS_ITS | Encounter Summary ---
Author Organization [facility] Address [address] [place] [address] Care Team Providers Care Supervisor Decorating Name Role Phone Ty Amin MD Primary Care Provider [phone] Mckayla Blas NP Unavailable [phone] Mckayla Blas NP Unavailable [phone] Encounter Details DateTypeDepartmentCare Team (Latest Contact Info)Ivcujgjblou88/04/2024Clinisync Result Encounter [facility] External Department Unsolicited Provider, [...] relatives?Once a week08/26/2024How often do you attend sikh or adventism services?More than 4 times per year08/26/2024Do you belong to any clubs or organizations such as sikh groups, unions, fraternal or athletic groups, or school groups?No08/26/2024How often do you attend meetings of the clubs or organizations you belong to?Never08/26/2024re you , , , , never , or living with a partner?Fbsywjd2308/26/2024UDIT-C AnswerDate RecordedQ1: How often do you have [...] heating?Not hard at all08/26/2024PHQ-2AnswerDate RecordedPatient Health Questionnaire-2 Pncqh515Finprimary [facility]'s hospital [place] of Occupational Health - Occupational Stress QuestionnaireAnswerDate RecordedDo you feel stress - tense, restless, nervous, or anxious, or unable to sleep at night because yourmind is troubled all the time - these days?Only a qnglbb6308/26/2024 Exercise Vital SignAnswerDate RecordedOn average, how many [...] or living in a senior living (including now)?No08/26/2024CommentsUnknownSex and Gender InformationValueDate RecordedSex Assigned at BirthNot on fileLegal Sex Ibdovp1109/20/2022 6:50 PM EDTGender IdentityNot on fileSexual OrientationNot on filedocumented as of this encounter Functional Status * AUDIT-C ScoreAnswerDate of OawhpurabvZuyqhh734/18/2025 6:13 PM Riley, Generic * Q1: How [...] or more drinks on one occasion?AnswerDate of SwgmawxbdiCtbjcxYxtqp14/18/2025 6:13 PM Riley, Generic * Over the past 2 weeks, how often have you been bothered by any of the following problems?QuestionAnswerDate of AssessmentAuthorLittle interest or pleasure in doing thingsNot at all01/26/2025 6:14 PM Marilyn Gibson MA Feeling down, depressed, or hopelessNot at all01/26/2025 6:14 PM Marilyn Gibson MAPatient Health Questionnaire-2 Dsvcy253 6:14 PM EDT Marilyn Forman MA * [...] Plan of Treatment DateTypeDepartmentCare Team (Latest Contact Info)Owepuxxzqrz32/20/2025 10:30 AM ESTOffice Visit [facility] [address] [place] [address] Rain Souza MD [address] [place] [address] documented as of this encounter Procedures Procedure NamePriorityDate/TimeAssociated DiagnosisCommentsMR LUMBAR SPINE WO CON05/12/2024 2:41 PM EST documented in this encounter Results * MR LUMBAR SPINE WO CON (05/12/2024 2:41 PM EST)Anatomical RegionLaterality ModalityOtherSpecimen (Source)Anatomical Location / LateralityCollection Method / VolumeCollection TimeReceived Time05/12/2024 2:41 PM EST Narrative 05/12/2024 2:43 PM EST [facility] ?[address] ? [place] [address] ? Magnetic Resonance Report ? Signed ? Patient: MACIAS,MITZI L ?MR#: [id number] ?? : 1970 ?Acct:[id number] ?? Age/Sex: 53 / F ?ADM Date: 05/12/24 ?? Loc: MRI ? Attending Dr: Celestina Chin CAR CUSTOMIZER ? Ordering Physician: Celestina Chin NP ?? Date of Service: 05/12/24 ?? Procedure(s): MR lumbar spine wo con ?? Accession Number(s): [id number] ? cc: Mckayla Blas NP; Celestina Chin NP ? [facility] ? [address] ? [place] [address] ? Patient Name: ?? MITZI MACIAS ? MRN: [id number] ? date: 1970 ?Sex: F ?? Assigned Patient Location: MRI ?? Current Patient Location: CT ?? Accession/Order Number: [id number] ?? Exam Date: 05/12/2024 ??09:21 ?Report Date: [...] 1443 ? DD/ 1441 ? TD/TT: ? Casualty Claims Supervisor: Procedure Note Radiology, Radiologist, MD - 05/12/[address] [address] Magnetic Resonance Report Signed Patient: MITZI MACIAS LMR#: [id number] : 1970Acct:[id number] Age/Sex: 53 / FADM Date: 05/12/24 Loc: MRI Attending Dr: Celestina Chin NP Ordering Physician: Celestina Chin NP Date of Service: 05/12/24 Procedure(s): MR lumbar spine wo con Accession Number(s): [id number] cc: Mckayla Blas NP; Celestina Chin NP [address] [address] Patient Name: MITZI MACIAS MRN: [id number] date: 1970 Sex: F Assigned Patient Location: MRI Current Patient Location: CT Accession/Order Number: [id number] Exam Date: 05/12/2024 09:21 Report Date: 05/12/2024 [...] Gardner M.D. Signed By:05/12/241442 DD/ 40 TD/TT: Casualty Claims Supervisor: Authorizing ProviderResult TypeResult StatusGeneric External Data Provider CLINISYNC IMAGINGFinal Result documented in this encounter Visit Diagnoses Not on filedocumented in this encounter Additional Health Concerns AssessmentNoted TimePQ-9 Depression Total Score: 307 10:08 AM EDT documented as of this encounter Care Teams Team MemberRelationshipSpecialtyStart DateEnd Date Ty Amin MD PCP - GeneralFamily Medicine09/20/23 Mckayla Blas NP [address] [place] [address] PCP - [facility]/1/ Mckayla Blas NP Nurse PractitionerFamily Medicine09/20/23documented as of this encounter
--- OUTSIDE RECORDS SUMMARY | 2025-05-13 10:30 | XMS_ITS | Encounter Summary ---
Author Organization [facility] Address [address] [place] [address] Care Team Providers Care Faucets Assembler Name Role Phone Ty Amin MD Primary Care Provider [phone] Mckayla Blas VENDOR MANAGEMENT ASSOCIATE Unavailable [phone] Mckayla Blas NP Unavailable [phone] Encounter Details DateTypeDepartmentCare Team (Latest Contact Info)Lhmfjknymdy29/07/2024Clinisync Result Encounter [facility] External Department Unsolicited Mckayla Blas NP [address] [place] [address] Social History Tobacco UseTypesPacks/DayYears UsedDateSmoking Tobacco: Every [...] relatives?Once a week08/26/2024How often do you attend jain or confucianist services?More than 4 times per year08/26/2024Do you belong to any clubs or organizations such as jain groups, unions, fraternal or athletic groups, or school groups?No08/26/2024How often do you attend meetings of the clubs or organizations you belong to?Never08/26/2024re you , , , , never , or living with a partner?Dvhunoy4308/26/2024UDIT-C AnswerDate RecordedQ1: How often do you have [...] heating?Not hard at all08/26/2024PHQ-2AnswerDate RecordedPatient Health Questionnaire-2 Rgnzn400[facility] [place] of Occupational Health - Occupational Stress QuestionnaireAnswerDate RecordedDo you feel stress - tense, restless, nervous, or anxious, or unable to sleep at night because yourmind is troubled all the time - these days?Only a soabit1008/26/2024 Exercise Vital SignAnswerDate RecordedOn average, how many [...] steady place to sleep or slept in riverside[place]ter (including now)?No07/10/2023Housing Stability Vital SignAnswerDate RecordedIn the last 12 months, was there a time when you were not able to pay the mortgage or rent on time?No08/26/2024Number of Times Moved in the Last Year Not on file08/26/2024t any time in the past 12 months, were you homeless or living in a custodial (including now)?No08/26/2024CommentsUnknownSex and Gender InformationValueDate RecordedSex Assigned at BirthNot on fileLegal Sex Meisno9009/20/2022 6:50 PM EDTGender IdentityNot on fileSexual OrientationNot on filedocumented as of this encounter Functional Status * AUDIT-C ScoreAnswerDate of OliiriheoyYbeutp857/18/2025 6:13 PM Riley, Generic * Q1: How [...] or more drinks on one occasion?AnswerDate of HlrxaprctnYhzofoVfgvw69/18/2025 6:13 PM Wiliam Lin * Over the past 2 weeks, how often have you been bothered by any of the following problems?QuestionAnswerDate of AssessmentAuthorLittle interest or pleasure in doing thingsNot at all01/26/2025 6:14 PM Marilyn Gibson MA Feeling down, depressed, or hopelessNot at all01/26/2025 6:14 PM Marilyn Gibson MAPatient Health Questionnaire-2 Kvbxm756 6:14 PM EDT Marilyn Forman MA * [...] Plan of Treatment DateTypeDepartmentCare Team (Latest Contact Info)Nksumlffayr48/20/2025 10:30 AM ESTOffice Visit [facility] [address] [place] [address] Rain Souza MD [address] [place] [address] documented as of this encounter Procedures Procedure NamePriorityDate/TimeAssociated DiagnosisCommentsMM TOMOSYNTHESIS SCREENING BI12/14/2023 11:21 AM EDT documented in this encounter Results * MM TOMOSYNTHESIS SCREENING BI (12/14/2023 11:21 AM EDT)Anatomical Region LateralityModalityOtherSpecimen (Source)Anatomical Location / Laterality Collection Method / VolumeCollection TimeReceived Time12/14/2023 11:21 AM EDT Narrative 12/14/2023 11:22 AM EDT The ?[address] ? [place] [address] ? Mammography Report ? Signed ? Patient: MACIAS,MITZI L ?MR#: [id number] ?? : 1970 ?Acct:[id number] ?? Age/Sex: 53 / F ?ADM Date: 12/13/23 ?? Loc: MAMMO ? Attending Dr: Mckayla J Aichholz VENDOR MANAGEMENT ASSOCIATE ? Ordering Physician: Aichholz,Mckayla VENDOR MANAGEMENT ASSOCIATE ?Results: ? Date of Service: 12/13/23 ?Follow Up: ? Procedure(s): MM tomosynthesis screening BI ?? Accession Number(s): [id number] ? cc: Mckayla Blas VENDOR MANAGEMENT ASSOCIATE ? Patient Name: ? MITZI MACIAS ? MR#: [id number] ? : 1970 ? Exam Date: 12/13/2023 [...] at age ??75. ? LOCATION: ? The ? BREAST COMPOSITION: ? The breasts are [...] ?12/14/232 ? DD/ 1121 ? TD/TT: ? Computer Information Systems Instructor: Procedure Note Radiology, Radiologist, - 12/14/2023 [place] [address] Mammography Report Signed Patient: MITZI MACIAS LMR#: [id number] : 1970Acct:[id number] Age/Sex: 53 / FADM Date: 12/13/23 Loc: MAMMO Attending Dr: Mckayla Blas NP Ordering Physician: Mckayla Blas NPResults: Date of Service: 12/13/23Follow Up: Procedure(s): MM tomosynthesis screening BI Accession Number(s): [id number] cc: Mckayla Blas NP Patient Name: MITZI MACIAS MR#: [id number] : 1970 Exam Date: 12/13/2023 Ordering Doctor: SAYDA Blas MANAGER CONTENT RADIOLOGY REPORT PROCEDURE: MM TOMOSYNTHESIS SCREENING BI [...] unknown cancer at age 75. LOCATION: The BREAST COMPOSITION: The breasts are almost entirely [...] M.D. Signed By:12/14/23 1122 DD/ 1121 TD/TT: Computer Information Systems Instructor: Authorizing ProviderResult TypeResult StatusLisa Wan NPCLINISYNC IMAGING Final Result documented in this encounter Visit Diagnoses Not on filedocumented in this encounter Care Teams Team MemberRelationshipSpecialtyStart DateEnd Date Ty Amin MD PCP - GeneralFamily Medicine09/20/23 Mckayla Blas NP [address] [place] [address] PCP - [facility]/ Mckayla Blas NP Nurse PractitionerFamily Medicine09/20/23documented as of this encounter
--- OUTSIDE RECORDS SUMMARY | 2025-05-13 10:30 | XMS_ITS | Encounter Summary ---
Author Organization [facility] Address [address] [place] [address] Care Team Providers Care Greeting Card Editor Name Role Phone Ty Amin MD Primary Care Provider [phone] Mckayla Blas NP Unavailable [phone] Mckayla Blas NP Unavailable [phone] Encounter Details DateTypeDepartmentCare Team (Latest Contact Info)Hgugnxpbyib37/04/2024Clinisync Result Encounter [facility] External Department Unsolicited Provider, [...] relatives?Once a week08/26/2024How often do you attend hoahaoism or catholic services?More than 4 times per year08/26/2024Do you belong to any clubs or organizations such as hoahaoism groups, unions, fraternal or athletic groups, or school groups?No08/26/2024How often do you attend meetings of the clubs or organizations you belong to?Never08/26/2024re you , , , , never , or living with a partner?Azkuftd8608/26/2024UDIT-C AnswerDate RecordedQ1: How often do you have [...] heating?Not hard at all08/26/2024PHQ-2AnswerDate RecordedPatient Health Questionnaire-2 Wvfgt702Finprimary children's hospital [place] of Occupational Health - Occupational Stress QuestionnaireAnswerDate RecordedDo you feel stress - tense, restless, nervous, or anxious, or unable to sleep at night because yourmind is troubled all the time - these days?Only a gbtjhc9408/26/2024 Exercise Vital SignAnswerDate RecordedOn average, how many [...] homeless or living in a mcc (including now)?No08/26/2024CommentsUnknownSex and Gender InformationValueDate RecordedSex Assigned at BirthNot on fileLegal Sex Vmpgnz9909/20/2022 6:50 PM EDTGender IdentityNot on fileSexual OrientationNot on filedocumented as of this encounter Functional Status * AUDIT-C ScoreAnswerDate of OzwsyjynetZuaqsw034/18/2025 6:13 PM Riley, Generic * Q1: How [...] or more drinks on one occasion?AnswerDate of QcbjtrruxwFwdigoFsaqu76/18/2025 6:13 PM Riley, Generic * Over the past 2 weeks, how often have you been bothered by any of the following problems?QuestionAnswerDate of AssessmentAuthorLittle interest or pleasure in doing thingsNot at all01/26/2025 6:14 PM Marilyn Gibson MA Feeling down, depressed, or hopelessNot at all01/26/2025 6:14 PM Marilyn Gibson MAPatient Health Questionnaire-2 Rgovz324 6:14 PM EDT Marilyn Forman MA * [...] Plan of Treatment DateTypeDepartmentCare Team (Latest Contact Info)Crmooqfhfhr45/20/2025 10:30 AM ESTOffice Visit [facility] [address] [place] [address] Rain Souza MD [address] [place] [address] documented as of this encounter Procedures Procedure NamePriorityDate/TimeAssociated DiagnosisCommentsCT ABDOMEN PELVIS W CON05/12/2024 2:16 PM EST documented in this encounter Results * CT ABDOMEN PELVIS W CON (05/12/2024 2:16 PM EST)Anatomical RegionLaterality ModalityOtherSpecimen (Source)Anatomical Location / LateralityCollection Method / VolumeCollection TimeReceived Time05/12/2024 2:16 PM EST Narrative 05/12/2024 2:19 PM EST The [facility] ?[address] ? [place] [address] ? CT Scan Report ? Signed ? Patient: DIONISIO,MITZI L ?MR#: [id number] ?? : 1970 ?Acct:[id number] ?? Age/Sex: 53 / F ?ADM Date: 05/12/24 ?? Loc: CT ? Attending Dr: Gaviota MAYERS ? Ordering Physician: Gaviota Vega ?? Date of Service: 05/12/24 ?? Procedure(s): CT abdomen pelvis w con ?? Accession Number(s): [id number] ? cc: Mckayla Blas NP ? [facility] ? [address] ? [place] [address] ? Patient Name: ?? MITZI MACIAS ? MRN: [id number] ? date: 1970 ?Sex: F ?? Assigned Patient Location: CT ?? Current Patient Location: WC ?? Accession/Order Number: [id number] ?? Exam Date: 05/12/2024 ??11:15 ?Report Date: [...] 1419 ? DD/ 1416 ? TD/TT: ? Overedge Sewer: Procedure Note Radiology, Radiologist, MD - 05/12/[address] [address] [address] Scan Report Signed Patient: MITZI MACIAS LMR#: [id number] : 1970Acct:[id number] Age/Sex: 53 / FADM Date: 05/12/24 Loc: CT Attending Dr: Gaviota MAYERS Ordering Physician: Gaviota Vega Date of Service: 05/12/24 Procedure(s): CT abdomen pelvis w con Accession Number(s): [id number] cc: Mckayla Blas NP [place] [address] [place] [id number] Patient Name: MITZI MACIAS MRN: [facility]:[id number] date: 1970 Sex: F Assigned Patient Location: CT Current Patient Location: Accession/Order Number: [id number] Exam Date: 05/12/2024 11:15 Report Date: 05/12/2024 [...] M.D. Signed By:05/12/24 1419 DD/ 1416 TD/TT: Overedge Sewer: Authorizing ProviderResult TypeResult StatusGeneric External Data Provider CLINISYNC IMAGINGFinal Result documented in this encounter Visit Diagnoses Not on filedocumented in this encounter Additional Health Concerns AssessmentNoted TimePHQ-9 Depression Total Score: 307 10:08 AM EDT documented as of this encounter Care Teams Team MemberRelationshipSpecialtyStart DateEnd Date Ty Amin MD PCP - GeneralFamily Medicine09/20/23 Mckayla Blas NP [address] [place] [address] PCP - [facility]/ Mckayla Blas NP Nurse PractitionerFamily Medicine09/20/23documented as of this encounter
--- OUTSIDE RECORDS SUMMARY | 2025-05-13 10:30 | XMS_ITS | Clinical Summary ---
Author Organization [facility] Address [address] [place] [address] Care Team Providers Care Skills Trainer Name Role Phone Ty Amin MD Primary Care Provider [phone] Mckayla Blas NP Unavailable [phone] Allergies No known active allergies Medications [...] (six) hours if needed for wheezingActive HYDROcodone-acetaminophen (Freeport) 5-325 MG tablet 1 tablet as needed [...] 2 diabetes mellitus with other circulatory complications ([facility]) USE TO TEST BLOOD SUGAR 4 TIMES DAILY 400 strip 4Active baclofen (Lioresal) 10 MG tablet Take 10 mg by mouth in the morning and 10 mg in the evening and 10 mg before bedtime.4Active naloxone (Narcan) 4 mg/0.1 mL nasal spray Administer 4 mg into affected nostril(s) if dsurkt814Active nicotine (Nicoderm, Step 1) 21 MG/24HR patch [...] DAYS 5Active ergocalciferol (Vitamin D2) 1.25 MG (24624 UT) capsule Indications:Vitamin D deficiency, unspecifiedTake 1 [...] complication, with long-term current use of insulin ([facility])Chew 1 tablet (81 mg) Daily 90 tablet [...] hyperglycemia, with long-term current use of insulin ([facility])Inject 58 Units under the skin in the morning and 58 Units before bedtime. 104.4 mL 107501/6Active insulin glargine (Lantus SoloStar) 100 UNIT/ML pen Indications:Type 2 diabetes mellitus with hyperglycemia, with long-term current use of insulin ([facility])INJECT 58 UNITS SUBCUTANEOUSLY TWICE A DAY 105 mL 5Active Tirzepatide (Mounjaro) 15 MG/0.5ML solution auto-injector Indications:Type 2 diabetes mellitus with other circulatory complications ([facility]) Inject 15 mg under the [...] right lower extremity due to peripheral venous zyqotxruhnki77/03/7650Sphqp35/03/2025 Assessment & Plan (12/09/2024 7:26 AM EDT): Tylenol prn fever Finish atb's Cellulitis of left lower tklyupogf97/03/2025 Assessment & Plan (12/09/2024 11:27 AM EDT): Finish atbs Keep appt with wound care A febrile Will call me if worsening in sxs Cigarette nicotine dependence without ayfltephzclf72/21/2025 Assessment & Plan (10/27/2024 2:40 PM EDT): Is currently using chantix, and is doing well, less desire, smoking less Vitamin D deficiency, yakmoywdbbw76/21/2025Gastro-esophageal reflux disease without eggoiiuzxwj75/21/2025 Assessment & Plan (01/26/2025 7:51 AM EDT): Recommendations: freq small meals, nothing to eat or drink at least 2 hours prior to bed, limit caffeine, alcohol, as well as spicy foods Meds to limit or avoid if possible: NSAIDS Elevate HOB if possible Current meds: ompeprazole Morbid (severe) obesity due to excess mjgzxmaa39/19/2025 Assessment & Plan (01/26/2025 6:46 PM EDT): [...] as possible shelter current use of inhaled yddpizi8408/27/2024Non-pressure chronic ulcer of other part of left lower leg limited to breakdown of skin08/27/2024Vitamin lqeaotohxc13/19/2025ntibiotic-induced yeast yvqusheda44/19/2025hronic diastolic heart qercooo5808/08/2024 Assessment & Plan (01/26/2025 7:52 AM EDT): [...] counseling 07/14/2024ritical limb ischemia of right lower /12/2024 Assessment & Plan (07/14/2024 7:32 PM EST): Saw vascular, does have narrowing in arteries in legs, and thus the wounds not healing At this point they strongly urge to quit smoking or risk limb amputation Cont asa and statin Also good blood pressure and sugar control 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 Does have left OM, will treat for this and if not better can try ubrelvy #3 samples given: Lot [id number], exp 03/2025 Mixed mhckcrncnkwy75/08/9366Jrmlkljva69/08/2024Encounter for screening mammogram for malignant neoplasm of hjespd3011/01/2023Non-seasonal allergic rhinitis 11/01/2023andidiasis of haydmp7611/01/2023 Assessment & Plan (11/01/2023 11:21 AM EDT): Skin care, Ycxisenc86/11/2024 Assessment & Plan (01/26/2025 6:44 PM EDT): elavil Radiculopathy, lumbar lvfbtb4409/17/2023 Assessment & Plan (07/14/2024 7:36 PM EST): [...] is necessary they take over prescribing Pancreatitis ([facility])09/17/2023OPD qoqulktruzlj38/11/2024 Assessment & Plan (12/09/2024 11:26 AM EDT): [...] non labored and no cyanosis noted Venous rtdhrdqezevhc63/11/2024 Assessment & Plan (11/01/2023 11:17 AM EDT): Open wounds refer to [facility] Pulmonary czjpmdoghqyc20/11/2024 Assessment & Plan (01/26/2025 7:52 AM EDT): Has seen [facility] Cardiology Assessment & Plan (12/09/2024 7:23 AM EDT): Has seen [facility] Cardiology Assessment & Plan (11/15/2023 3:49 PM EDT): Saw [facility] Cardiology See notes Going to see Pulmonary Assessment & Plan (09/27/2023 1:03 PM EDT): Needs to wear her PAP I am also going to have her see [facility] Cardiology as well PAD (peripheral artery disease)09/17/2023 Assessment & Plan (10/27/2024 2:38 PM EDT): Asa, statin Quit smoking BP and DM control Assessment & Plan (07/14/2024 7:32 PM EST): Asa, statin Quit smoking BP and DM control Malignant neoplasm of cervix uteri, /11/2024 Assessment & Plan (08/27/2024 7:33 AM EST): Had in the past, had hysterectomy Zqilkrfkkrz57/11/2024Unilateral primary osteoarthritis, right hip09/17/2023 Chronic pain of both knees09/17/20231054Arvlpxukfdlpzm54/11/2024 Assessment & Plan (01/26/2025 7:49 AM EDT): On statin therapy Check labs yearly and prn dose changes Assessment & Plan (08/27/2024 7:36 AM EST): On statin therapy Check labs yearly and prn dose changes Decreased functional ycnslnlf06/11/2024drenal mass 1 cm to 4 cm in diameter 09/17/2023 Assessment & Plan (07/14/2024 7:33 PM EST): Continue with Urology Kidney stone09/17/2023 Assessment & Plan (07/14/2024 7:32 PM EST): Continue with Urology Rooeyumyjcr59/11/2024Vaginal yeast wnuyfifyi27/09/2024 Assessment & Plan (01/26/2025 6:46 PM EDT): [...] reach out to DME for help Diabetic yfcowvaxpk56/02/2024 Assessment & Plan (01/26/2025 7:53 AM EDT): [...] spiriva Will trial breztri: #2 samples given [id number], exp 03/03, rinse mouth after use Give [...] no changes in inhalers Recommend quitting smoking Cfcbgn2907/10/2023 Assessment & Plan (01/26/2025 6:44 PM EDT): Current meds: albuterol, duoneb, Has carpenter helper 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 Assessment & Plan (08/27/2024 7:30 AM EST): Current meds: albuterol, duoneb, Has carpenter helper 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 Assessment & Plan (01/17/2024 12:36 PM EDT): Cont w inhalers, pulmonology Quit smoking Haaalcregkxj51/02/2024 Assessment & Plan (01/26/2025 7:52 AM EDT): [...] from hospital, lost script I did contact [facility] in [place], they will get another fill on this and have ready for patient Fu in 4 weeks Assessment & Plan (07/10/2023 11:59 AM EST): Stable on current dose of meds Type 2 diabetes mellitus with complication, with long-term current use of sfdxuly7307/10/2023 Assessment & Plan (01/26/2025 7:50 AM EDT): [...] discussed skin care regimines as well RAGHU jjuzeafs25/11/8045Befrlybnsrbl95/19/2018 Overview (09/17/2023): borderline Gout10/25/2017 Resolved Problems ProblemNoted [...] left ear without spontaneous rupture of tympanic bqdfeltt14lass 3 severe obesity with serious comorbidity and body mass index (BMI) of 50.0 to 59.9 in adult09/27/2023 04/14/20242744Afiyvnsju36/11/202404/GERD (gastroesophageal reflux disease) Assessment & Plan (10/27/2024 [...] 60.0 to 69.9 in adult/bdominal Encounters DateTypeDepartmentCare ZbhjPdncdmnqygp37/01/2025[facility] [address] [place] [address] Mckayla Blas NP Tobacco user; Encounter for smoking cessation jsotrcqzoz03/22/2025Refill [facility] [address] [place] [address] Amber Pinzon LPN Type 2 diabetes mellitus with other circulatory complications (HCC)02/26/2025 Refill [facility] [address] [place] [address] Rain Odonnell MD Type 2 diabetes mellitus with other circulatory complications (HCC)02/18/2025 Abstract [facility] [address] [place] [address] Mckayla Blas NP 02/14/2025Refill [facility] [address] [place] [address] Rain Odonnell MD Type 2 diabetes mellitus with hyperglycemia, with long-term current use of insulin (HCC)from Last 3 Months Immunizations ImmunizationAdministration DatesNext DueInfluenza Whole05/02/2013Influenza, C4U5-175535/09/2017,05/10/2016Influenza, Qgoxhhyzbib26/10/2023,04/16/2017, 05/10/2016Influenza, injectable, padkertupglf88/10/2023,05/02/2013MMR01/29/1998 Pneumococcal Polysaccharide NTKC7805 Family History Medical HistoryRelationNameCommentsNo Known ProblemsFatherVaricose veinsFather's [...] other written material from your doctor or pharmacy?Jrmixl0808/26/2024Humiliation, Afraid, Rape, and Kick questionnaireAnswerDate RecordedWithin the [...] relatives?Once a week08/26/2024How often do you attend synagogue or confucianist services?More than 4 times per year 08/26/2024Do you belong to any clubs or organizations such as synagogue groups, unions, fraternal or athletic groups, or school groups?No08/26/2024How often do you attend meetings of the clubs or organizations you belong to?Never08/26/2024 Are you , , , , never , or living with a partner?Xuojufs4308/26/2024UDIT-CAnswerDate RecordedQ1: How often do you have a [...] hard at all08/26/2024PHQ-2AnswerDate RecordedPatient Health Questionnaire-2 Score0 01/26/2025[facility] [place] of Occupational Health - Occupational Stress QuestionnaireAnswerDate RecordedDo you feel stress - tense, restless, nervous, or anxious, or unable to sleep at night because yourmind is troubled all the time - these days?Only a slgdlh3808/26/2024Exercise Vital SignAnswerDate Recorded On average, how many [...] homeless or living in a snf (including now)?No08/26/2024 CommentsUnknownSex and Gender InformationValueDate RecordedSex Assigned at BirthNot on fileLegal OqwVeaghc28/15/2023 6:50 PM EDTGender IdentityNot on fileSexual OrientationNot on file Last Filed Vital Signs Vital SignReadingTime TakenCommentsBlood Pkidanwe914/70001/29/2025 9:48 AM EDT Bhgom9985/24/2025 9:48 AM FXQXxbbgbrfjld93.9 ??C (98.5 ??F)01/26/2025 6:11 PM EDTRespiratory Fzfe583601/29/2025 9:48 AM EDTOxygen Vkfsrrsoen34%01/29/2025 9:48 AM EDTInhaled Oxygen Concentration--Skrqlg968 kg (360 lb)01/29/2025 9:48 AM EDT Eimhhj611.2 cm (5' 7 )01/29/2025 9:48 AM EDTBody Mass Index56.3807 9:48 AM EDT Plan of Treatment DateTypeDepartmentCare Team (Latest Contact Info)Zzpxqyxsuhu13/20/2025 10:30 AM ESTOffice Visit [facility] [address] [place] [address] Rain Odonnell MD [address] [place] [address] Health MaintenanceDue DateLast DoneCommentsCT Drcbbxrulwtn42/17/1971Colonoscopy 1970FIT1970FOBT1970 9156Odqncfzyntalb45/17/1971HPV/Qvpoxy8508/25/2000 Pap Smear04/, 10/08/20159567Frkabnrrj66/07/759609/01/2024, 12/14/2023, 3COVID-19 Vaccine ( season)/05/2022, 10/28/2020, 10/08/2020Influenza Vaccine (#1)/04/2023, 05/18/2023, 04/16/2017, Additional history existsColorectal Cancer Tmagloirg43/26/2026 FIT-DNA603Pneumococcal Vaccine: Pediatrics (0 to 5 Years) and At-Risk Patients (6 to 64 Years)Aged Out04/16/2017No longer eligible based on patient's age to complete this topicCervical Cancer ScreeningDiscontinued Procedures Procedure NamePriorityDate/TimeAssociated DiagnosisCommentsMM TOMOSYNTHESIS SCREENING BI12/14/2023 11:21 AM EDT from Last 3 Months or Most Recently Relevant to Health Maintenance Results * MM TOMOSYNTHESIS SCREENING BI (12/14/2023 11:21 AM EDT)Anatomical Region LateralityModalityOtherSpecimen (Source)Anatomical Location / Laterality Collection Method / VolumeCollection TimeReceived Time12/14/2023 11:21 AM EDT Narrative 12/14/2023 11:22 AM EDT [facility] ?[address] ? [place] [address] ? Mammography Report ? Signed ? Patient: MACIAS,SINA L ?MR#: [id number] ?? : 1970 ?Acct:[id number] ?? Age/Sex: 53 / F ?ADM Date: 12/13/23 ?? Loc: MAMMO ? Attending Dr: Mckayla J Aichholz GYRO MECHANIC ? Ordering Physician: Juanjosehdallin,Mckayla GYRO MECHANIC ?Results: ? Date of Service: 12/13/23 ?Follow Up: ? Procedure(s): MM tomosynthesis screening BI ?? Accession Number(s): [id number] ? cc: Mckayla Blas GYRO MECHANIC ? Patient Name: ? SINA MACIAS ? MR#: [id number] ? : 1970 ? Exam Date: 12/13/2023 [...] at age ??75. ? LOCATION: ? [facility] ? BREAST COMPOSITION: ? The breasts [...] 1122 ? DD/ 1121 ? TD/TT: ? Cutter Inspector: Procedure Note Radiology, Radiologist, MD - 12/14/2023 [place] [address] Mammography Report Signed Patient: SINA MACIAS LMR#: [id number] : 1970Acct:[id number] Age/Sex: 53 / FADM Date: 12/13/23 Loc: MAMMO Attending Dr: Mckayla Blas NP Ordering Physician: Mckayla Blas NPResults: Date of Service: 12/13/23Follow Up: Procedure(s): MM tomosynthesis screening BI Accession Number(s): [id number] cc: Mckayla Blas NP Patient Name: SINA MACIAS MR#: [id number] : 1970 Exam Date: 12/13/2023 Ordering Doctor: SAYDA Blas WADER BOOT TOP ASSEMBLER RADIOLOGY REPORT PROCEDURE: MM TOMOSYNTHESIS SCREENING BI [...] cancer at age 75. LOCATION: [facility] BREAST COMPOSITION: The breasts are almost [...] M.D. Signed By:12/14/23 1122 DD/ 1121 TD/TT: Cutter Inspector: Authorizing ProviderResult TypeResult StatusLisa Wan NPCLINISYNC IMAGING Final Result from Last 3 Months or Most Recently Relevant to Health Maintenance Insurance Care Teams Team MemberRelationshipSpecialtyStart DateEnd Date Ty Amin MD PCP - GeneralFamily Medicine09/20/23 Mckayla Blas NP Nurse PractitionerFamily Medicine09/20/23
--- OUTSIDE RECORDS SUMMARY | 2025-05-13 10:30 | XMS_ITS | Encounter Summary ---
Author Organization [facility] Address [address] [place] [address] Care Team Providers Care Operations And Maintenance Technican Name Role Phone Ty Amin MD Primary Care Provider [phone] Ty Amin MD Primary Care Provider [phone] Mckayla Blas PLATE ROLLER Unavailable [phone] Mckayla Blas PLATE ROLLER Unavailable [phone] Encounter Details DateTypeDepartmentCare Team (Latest Contact Info)Qdjwmaplrlg41/23/2024Clinisync Result Encounter [facility] External Department Unsolicited Andra Alcala PA [address] [place], [place] [id number] Social History Tobacco UseTypesPacks/DayYears UsedDateSmoking Tobacco: Every [...] relatives?Once a week08/26/2024How often do you attend druze or buddhism services?More than 4 times per year08/26/2024Do you belong to any clubs or organizations such as druze groups, unions, fraternal or athletic groups, or school groups?No08/26/2024How often do you attend meetings of the clubs or organizations you belong to?Never08/26/2024re you , , , , never , or living with a partner?Neqkfyf7208/26/2024UDIT-C AnswerDate RecordedQ1: How often do you have [...] heating?Not hard at all08/26/2024PHQ-2AnswerDate RecordedPatient Health Questionnaire-2 Gddop439[facility] [place] of [facility] Health - Occupational Stress QuestionnaireAnswerDate RecordedDo you feel stress - tense, restless, nervous, or anxious, or unable to sleep at night because yourmind is troubled all the time - these days?Only a tjwice6108/26/2024 Exercise Vital SignAnswerDate RecordedOn average, how many [...] place to sleep or slept in [facility] (including now)?No07/10/2023Housing Stability Vital SignAnswerDate RecordedIn [...] RecordedSex Assigned at BirthNot on fileLegal Sex Ruvwcb2409/20/2022 6:50 PM EDTGender IdentityNot on fileSexual OrientationNot on filedocumented as of this encounter Functional Status * AUDIT-C ScoreAnswerDate of JxgkfcmgpjYlzhkv871/18/2025 6:13 PM ESTMychart, Generic * Q1: How [...] or more drinks on one occasion?AnswerDate of ZnyvwgoqgwPqymdbXgdag47/18/2025 6:13 PM Riley Generic * Over the past 2 weeks, how often have you been bothered by any of the following problems?QuestionAnswerDate of AssessmentAuthorLittle interest or pleasure in doing thingsNot at all01/26/2025 6:14 PM Marilyn Gibson MA Feeling down, depressed, or hopelessNot at all01/26/2025 6:14 PM Marilyn Gibson MAPatient Health Questionnaire-2 Beyyx083 6:14 PM EDT Marilyn Forman MA * [...] Plan of Treatment DateTypeDepartmentCare Team (Latest Contact Info)Hxganumimzq51/20/2025 10:30 AM ESTOffice Visit [facility] [address] [place] [address] Rain Souza MD [address] [place] [address] documented as of this encounter Procedures Procedure NamePriorityDate/TimeAssociated DiagnosisCommentsBLOOD CULTURE 2 Tivtewv5409/10/2023 2:22 PM EST BLOOD CULTURE 0Tnksmic08/04/2024 2:05 PM EST ECG 12-LEAD08/31/2023 6:08 PM [...] EST Narrative 09/02/2023 7:32 AM EST [facility] ?[address] ? [place] [id number] ? Electrocardiograph Report ? Signed ? Patient: MITZI MACIAS L ?MR#: [id number] ?? : 1970 ?Acct:[id number] ?? Age/Sex: 53 / F ?ADM Date: 08/31/23 ?? Loc: [place] ??214-1 ? Attending Dr: Jacqueline Becerra D.O. ? Ordering Physician: Andra Alcala ?? Date of Service: 08/31/23 ?? Procedure(s): ECG 12 lead ?? Accession Number(s): [id number] ? cc: ?[facility] ? Test Date: ?2023-08-31 ?? Pat Name: ? MITZI MACIAS ?Department: ? Room: ? - ?? Gender: ? Female ? Embedded Software Developer: ? : ?1970 ? Requested By: MCKAYLA BERMUDEZHHOLZ ?? Order Number: [id number] ?Reading MD: ?? LAURI ??BALL ? Measurements ?? Intervals ?[place] ? Rate: ? 102 ?P: ?67 ?? [place]: ? 144 ?QRS: ?52 ?? QRSD: ? [...] 0732 ? DD/ 1808 ? TD/TT: ? Quarter Seamer: Procedure Note Radiology, Radiologist, MD - 09/02/[address] [address] Electrocardiograph Report Signed Patient: MITZI MACIAS LMR#: [id number] : 1970Acct:[id number] Age/Sex: 53 / FADM Date: 08/31/23 Loc: [place] 214-[address]: Jacqueline Becerra D.O. Ordering Physician: Andra Alcala Date of Service: 08/31/23 Procedure(s): ECG 12 lead Accession Number(s): [id number] cc: [facility] Test Date: 2023-08-31 Pat Name: MITZI MACIAS Department: Room: - Gender: Female Embedded Software Developer: : 1970 Requested By: MCKAYLA BLAS Order Number: [id number] Reading MD: LAURI DIOR Measurements Intervals [place] Rate: 102 P: 67 [place]: 144 QRS: 52 QRSD: 72 T: 49 QT: 326 QTc: 385 Interpretive Statements 1120 Sinus tachycardia 4068 Nonspecific Twave abnormality 8102 Low QRS voltage in chest leads 9140 abnormal rhythm ECG Compared to ECG 12/04/2022 21:27:48 Electronically Signed On 09-02-2023 7:31:43 EST by LAURI DIOR Dictated By: Lauri Dior D.O. Signed By:09/02/23 0732 DD/ 1808 TD/TT: Quarter Seamer: Authorizing ProviderResult TypeResult StatusAmy Cari PACLMARSHALL MEDICAL CENTER NORTHYNC IMAGINGFinal Result documented in this encounter Visit Diagnoses Not on filedocumented in this encounter Care Teams Team MemberRelationshipSpecialtyStart DateEnd Date Ty Amin MD PCP - GeneralFamily Medicine Ty Amin MD PCP - GeneralFamily Medicine09/20/23 Mckayla Blas NP [address] [place] [address] [facility]/ Mckayla Blas NP Nurse PractitionerFamiPhoebe Putney Memorial Hospital09/20/23documented as of this encounter
--- OUTSIDE RECORDS SUMMARY | 2025-05-13 10:30 | XMS_ITS | Encounter Summary ---
Author Organization [facility] Address [address] [place] [address] Care Team Providers Care Supply Requirements Officer Name Role Phone Ty Amin MD Primary Care Provider [phone] Mckayla Blas NP Unavailable [phone] Mckayla Blas NP Unavailable [phone] Encounter Details DateTypeDepartmentCare Team (Latest Contact Info)Wohqelnxycu04/17/2024Clinisync Result Encounter [facility] Unsolicited Provider, [...] relatives?Once a week08/26/2024How often do you attend protestant or restorationism services?More than 4 times per year08/26/2024Do you belong to any clubs or organizations such as protestant groups, unions, fraternal or athletic groups, or school groups?No08/26/2024How often do you attend meetings of the clubs or organizations you belong to?Never08/26/2024re you , , , , never , or living with a partner?Meesvma8108/26/2024UDIT-C AnswerDate RecordedQ1: How often do you have [...] heating?Not hard at all08/26/2024PHQ-2AnswerDate RecordedPatient Health Questionnaire-2 Dujaf177[facility] - Occupational Stress QuestionnaireAnswerDate RecordedDo you feel stress - tense, restless, nervous, or anxious, or unable to sleep at night because yourmind is troubled all the time - these days?Only a xitvsg5008/26/2024 Exercise Vital SignAnswerDate RecordedOn average, how many [...] RecordedSex Assigned at BirthNot on fileLegal Sex Sdqreo6909/20/2022 6:50 PM EDTGender IdentityNot on fileSexual OrientationNot on filedocumented as of this encounter Functional Status * AUDIT-C ScoreAnswerDate of TmfgansdgzLetbxh001/18/2025 6:13 PM Riley, Generic * Q1: How [...] or more drinks on one occasion?AnswerDate of BddapbcbfgEneywcLdebe07/18/2025 6:13 PM Riley, Generic * Over the past 2 weeks, how often have you been bothered by any of the following problems?QuestionAnswerDate of AssessmentAuthorLittle interest or pleasure in doing thingsNot at all01/26/2025 6:14 PM Marilyn Gibson MA Feeling down, depressed, or hopelessNot at all01/26/2025 6:14 PM Marilyn Gibson MAPatient Health Questionnaire-2 Zmqdg709 6:14 PM EDT Marilyn Forman MA * [...] Plan of Treatment DateTypeDepartmentCare Team (Latest Contact Info)Eitkpdzfdxb35/20/2025 10:30 AM ESTOffice Visit [facility] [address] [place] [address] Rain Souza MD [address] [place] [address] documented as of this encounter Procedures Procedure NamePriorityDate/TimeAssociated DiagnosisCommentsSEGMENTAL BLOOD FBUMAOMC54/17/2024 11:20 AM EDT documented in this encounter Results * SEGMENTAL BLOOD PRESSURE (04/24/2024 11:20 AM EDT)Anatomical RegionLaterality ModalityRadiographic ImagingSpecimen (Source)Anatomical Location / Laterality Collection Method / VolumeCollection TimeReceived Time04/24/2024 11:20 AM EDT Narrative 04/24/2024 11:23 AM EDT [facility] ?[address] ? [place] [address] ?Vein Report ? Signed ? Patient: MACIAS,MITZI L ?MR#: [id number] ?? : 1970 ?Acct:[id number] ?? Age/Sex: 53 / F ?ADM Date: 04/24/24 ?? Loc: [facility] ? Attending Dr: Rafael Gongora ? Ordering Physician: Rafael Gongora ?? Date of Service: 04/24/24 ?? Procedure(s): VC SEGMENTAL PRESSURES ?? Accession Number(s): [id number] ? cc: Mckayla Blas NP; Rafael Gongora ? [facility] ? [address] ? [place] [address] ? Patient Name: ?? MITZI MACIAS ? MRN: [id number] ? date: 1970 ?Sex: F ?? Assigned Patient Location: VC ?? Current Patient Location: [facility] ?? Accession/Order Number: [id number] ?? Exam Date: 04/24/2024 ??10:25 ?Report Date: [...] 124, 106 ?? DPA: 108, 105 ?? KNITTER HELPER: 100, 91 ?? 1st Toe: 124, [...] ?04/24/243 ? DD/ 1120 ? TD/TT: ? Carton Filling 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: Procedure Note Radiology, Radiologist, MD - 04/24/[address] [address] Vein Report Signed Patient: MITZI MACIAS LMR#: [id number] : 1970Acct:[id number] Age/Sex: 53 / FADM Date: 04/24/24 Loc: Attending Dr: Rafael Gongora Ordering Physician: Rafael Gongora Date of Service: 04/24/24 Procedure(s): VC SEGMENTAL PRESSURES Accession Number(s): [id number] cc: Mckayla Blas HIDE MILL MAN; Rafael Gongora The [address] [address] Patient Name: MITZI MACIAS MRN: [id number] date: 1970 Sex: F Assigned Patient Location: Current Patient Location: VC Accession/Order Number: [id number] Exam Date: 04/24/2024 10:25 Report Date: 04/24/2024 11:20 At the request of: RAFAEL GONGORA Procedure: VC SEGMENTAL PRESSURES EXAM: VC SEGMENTAL PRESSURES HISTORY: R09.89 COMPARISON: None. FINDINGS: Segmental pressures presented as follows (right, left) in mmHg. Brachial: 169, 166 Upper thigh: Not obtained Lower thigh: 129, 119 Calf: 124, 106 DPA: 108, 105 KNITTER HELPER: 100, 91 1st Toe: 124, 142 [...] M.D. Signed By:04/24/24 1123 DD/ 1120 TD/TT: Carton Filling 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: Authorizing ProviderResult TypeResult StatusGeneric External Data ProviderIMG XR PROCEDURESFinal Result documented in this encounter Visit Diagnoses Not on filedocumented in this encounter Additional Health Concerns AssessmentNoted TimePHQ-9 Depression Total Score: 307/05/2024 10:08 AM EDT documented as of this encounter Care Teams Team MemberRelationshipSpecialtyStart DateEnd Date Ty Amin MD PCP - GeneralFamily Medicine09/20/23 Mckayla Blas NP [address] [place] [address] PCP - [facility]/ Mckayla Blas NP Nurse PractitionerFamily Medicine09/20/23documented as of this encounter
--- OUTSIDE RECORDS SUMMARY | 2025-05-13 10:30 | XMS_ITS | Clinical Summary ---
Author Organization [facility] Address [address] [place] [address] Care Team Providers Care Gallery Host Name Role Phone Mckayla Blas MD Primary Care Provider [phone] Allergies No known active allergies Medications MedicationSigDispense [...] INJECT 48 UNITS SUBCUTANEOUSLY TWICE DAILY02/06/2022ctive HYDROcodone-acetaminophen (Eleroy) 5-325 mg tablet TAKE 1 TABLET BY MOUTH THREE TIMES A DAY NEEDED FOR PAIN MUST LAST 30 DAYS 11/09/2023ctive DULoxetine (Cymbalta) [address] capsule Take 1 tablet by mouth in the morning.Active ergocalciferol (Vitamin D-2) 1.25 MG (53924 Units) capsule Take 1.25 mg by mouth.Active [...] Problems ProblemNoted DateDiagnosed DateCellulitis of left lower pjmckrzho28/03/2025Fever 12/09/2024igarette nicotine dependence without aalhdoiuxqji18/21/2025Vitamin D deficiency, yzctwtenxiz84/21/2025ntibiotic-induced yeast ufdhjugti05/19/2025 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 08/27/2024Long term current use of inhaled mmzaubo8208/27/2024Vitamin deficiency 08/27/2024ad odor of urine08/08/2024hronic diastolic heart qpoawsy8908/08/2024 Myelolipoma of adrenal gland07/14/2024ritical limb ischemia of right lower /12/2024Venous ulcer of right leg06/19/2024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 2 diabetes edssbzcx92/05/2024 Overview (08/08/2024): Eye exam 05/13/24 Hyperpigmentation of skin04/14/20243323Fyvmompbc04Headache Left flank painMixed incontinence urrent nacqfz35 Overview (11/14/2023): Added secondary to documentation in Social History. Candidiasis of gefcrn76 Overview (11/14/2023): Last Assessment & Plan: Skin care, Non-seasonal allergic jhpnqykr14Encounter for screening mammogram for malignant neoplasm of ocqcsc18lass 3 severe obesity with serious comorbidity and body mass index (BMI) of 50.0 to 59.9 in adultdrenal mass 1 cm to 4 cm in lfhehxxw38/11/2024 11/14/20238845Uqofapxpfpy76ervical Chronic pain of both kneesecreased functional mobility GERD (gastroesophageal reflux disease) Nffcupkcpknymz24InsomniaKidney stone AD (peripheral artery disease)neumonia adiculopathy, lumbar hdqdsr26Unilateral primary osteoarthritis, right hipVenous insufficiency Overview (11/14/2023): Last Assessment & Plan: Open wounds refer to [facility] Vaginal yeast ovrurjlhs14nxiety and thxtkpkrxi82/02/2024 11/14/2023ilateral lower extremity edema Overview (11/14/2023): Last Assessment & Plan: Continue w pamela, discussed skin care regimines as well Diabetic kipqxuxbrt15Hypertension Overview (11/14/2023): Last Assessment & Plan: No changes today in meds Obstructive sleep apnea Overview (11/14/2023): Last Assessment & Plan: DME needs to send her a new mask for her machine, I have emphasized the importance of getting in touch with them so she can do this Type 2 diabetes mellitus with complication, with long-term current use of yndtnyh28 Overview (11/14/2023): Last Assessment & Plan: Continue with [facility] for management RAGHU celbqtvw29Other chronic painMI 50.0- 59.9, adult05/21/Easy xumxufig82losed fracture of upper end of ckkmqbu64/27/bdominal qapndr71 Okcgoc15ardiomegaly Overview (11/14/2023): borderline borderline Acute respiratory distress qqquhkjo51Gout Resolved Problems ProblemNoted DateDiagnosed DateResolved DatePulmonary ubpxibzoqwsf76/11/2024 Overview (11/14/2023): Last Assessment & Plan: Needs [...] (1 standard drink = 0.6 oz pure alcohol)[place] Safety & EnvironmentAnswerDate RecordedFear of Current or Ex-PartnerNot on file08/30/2023Emotionally AbusedNot on file08/30/2023hysically AbusedNot on file08/30/2023Sexually AbusedNot on file08/30/2023hysically or Sexually AbusedNot on file08/30/2023CommentsUnknownSex and Gender InformationValueDate RecordedSex Assigned at BirthNot on fileLegal SexFemale 01/04/2022 10:08 PM EDTGender IdentityNot on fileSexual OrientationNot on file Last Filed Vital Signs Vital SignReadingTime TakenCommentsBlood Vzxmcgal214/6407 11:41 AM EDT Muyrd780201/06/2025 11:41 AM UYBWzeheolimvb70.7 ??C (98.1 ??F)12/12/2018 2:44 PM EDTRespiratory Rate--Oxygen Xqmseuuzfe86%01/06/2025 11:41 AM EDTInhaled Oxygen Concentration--Faezyq634 kg (376 lb)01/06/2025 11:41 AM UEGVsdyaz856.2 cm (5' 7 )01/06/2025 11:41 AM EDTBody Mass Index58.8907 11:41 AM EDT Plan of Treatment Health MaintenanceDue DateLast DoneCommentsCT Hgltfpvklaus95/17/1971Colonoscopy 1970Colorectal Cancer Fdykhifbj08/17/1971Diabetes: Hemoglobin A1C 1970FIT-DNA1970FIT1970FOBT1970Medicare Annual Wellness (AWV)1970 5399Rnhfljxtwtaxe33/17/1971Diabetes: Retinopathy Dybhomuix88/17/1981 Depression Eowbhztxk10/17/1983Diabetes: Urine Protein Bptzqssgt79/17/1990 Hepatitis B Vaccines (1 of 3 - 19+ 3-dose series)1989Pap Smear1991 Adult Sncqoze6508/25/1992Cervical Cancer Ugqwuzhbj79/17/2001HPV/Scrqdz7808/25/2000 Rujtmzobt49/17/2011Pneumococcal Vaccine: Pediatrics (0 to 5 Years) and [...] Mckayla Blas MD [address] [place] [address] PCP - GeneralNurse Practitioner11/13/23
--- OUTSIDE RECORDS SUMMARY | 2025-05-13 10:30 | XMS_ITS | Clinical Summary ---
Author Organization [facility] Address [id number] [address] [place] [address] Care Team Providers Care Developer Prover Mechanical Name Role Phone Wan Mckayla Rice APRN-MAINTENANCE SERVICE DISPATCHER Primary Care Provider Allergies No known active [...] mg/0.5 mL pen injector inject one pen savoea4804/12/2020Active DULoxetine (CYMBALTA) 60 mg capsule Take 1 [...] get venous reflux ultrasound. Other chronic pain1ANA xspawaqj78/11/2021Preop cardiovascular exam 05/28/20206831Tyalonn89/20/2020 Assessment & Plan (06/19/2024 2:16 PM EST): Counseled on smoking cessation for at least 3 minutes. She is willing to quit. Morbid tndtogj9705/28/2020BMI 50.0-59.9, adult05/21/2020 Family History Medical HistoryRelationNameCommentsCancerPaternal GrandfatherCancerPaternal GrandmotherHeart diseasePaternal GrandmotherStrokePaternal GrandmotherRelation NameStatusCommentsFatherDeceasedMotherDeceasedPaternal GrandfatherPaternal Grandmother Social History Tobacco UseTypesPacks/DayYears UsedDateSmoking Tobacco: Every DayCigarettes Smokeless Tobacco: NeverAlcohol UseStandard Drinks/WeekCommentsYes0 (1 standard drink = 0.6 oz pure alcohol)RAREChildcareAnswerDate RecordedChildcareUnknown 12/12/2018EmploymentAnswerDate OencvvheTomavbirunMmlsgcg25/06/2019Purpose - Life AnswerDate RecordedPurpose and direction in kfcwAddqdvf92/06/2021 CommentsUnknownSex and Gender InformationValueDate RecordedSex Assigned at Not on fileLegal ImmUeefxe66/06/2015 11:50 AM EDTGender IdentityNot on file Sexual OrientationNot on file Last Filed Vital Signs Vital SignReadingTime TakenCommentsBlood Yhpphopk625/7006/19/2024 11:26 AM EST Cjzbl944806/19/2024 11:26 AM XSRBsaxwdkmlce11.7 ??C (98 ??F)06/19/2024 11:26 AM ESTRespiratory Beml640608/20/2023 11:26 AM ESTOxygen Bheocprzae94%06/11/2020 9:27 AM ESTInhaled Oxygen Concentration--Mnqzyt955.6 kg (374 lb)06/19/2024 11:26 AM LKFVdupem920 cm (5' 6.93 )06/19/2024 11:26 AM ESTBody Mass Index58.7108/20/2023 11:26 AM EST Plan of Treatment Health MaintenanceDue DateLast DoneCommentsStatin Use: Tlhlcarxjkagpa68/17/1971 Depression Uyoxblhcp13/17/1983Tobacco Mkmafwoxx19/17/1983Adult BMI Follow Up Plan1988DTaP,Tdap and Td Vaccines (1 - Tdap)1989Pap Smear1991 Zoster (Shingles) Vaccine (1 of 2)1COVID-19 Vaccine (4 - 2024-26 season)5007/19/2021, 10/28/2020, 10/08/2020Influenza Lbquvuz2603/09/2025 05/18/2023, 04/16/2017, 05/10/2016, Additional history existsAdult BMI Screening Medical Devices Not on file Insurance Care Teams Team MemberRelationshipSpecialtyStart DateEnd Date Mckayla Blas, PSYCHIATRIC THERAPIST-MAINTENANCE SERVICE DISPATCHER [address] [place] [place] [address] PCP - GeneralNurse Practitioner09/25/18
--- OUTSIDE RECORDS SUMMARY | 2025-05-13 10:34 | XMS_ITS | CCD ---
Author Organization [facility] Care Team Providers Care Crusher Tender Name Role Phone Rufino Benavidez Primary Care Provider [phone] RUFINO BENAVIDEZ Primary Care Unavailable SHENDGE, VITHAL Admitting Unavailable SHENDGE, VITHAL Attending Unavailable AICHHOLZ, MCKAYLA Primary Care Unavailable AICHHOLZ, MCKAYLA Referring Unavailable AICHHOLZ, MCKAYLA J Primary Care Physician Tico, Stephanie Unavailable OLE RAMIREZ Attending Unavailable OLE RAMIREZ Consulting Unavailable AICHHOLZ, PIG FURNACE OPERATOR MCKAYLA Primary Care Unavailable OLE RAMIREZ Admitting Unavailable ANTONY SHRESTHA Consulting Unavailable ALONDRA ., JACQUELINE Admitting Unavailable ALONDRA ., JACQUELINE Attending Unavailable AICHHOLZ, PIG FURNACE OPERATOR MCKAYLA Primary Care Unavailable AFSANEH Loera, DR BOLANOS Consulting Unavailable MARYANNE POWER Consulting Unavailable GLENN KERR Consulting Unavailable YOMAIRA KERR Consulting Unavailable HATTIE GOFF Consulting Unavailable ALONDRA ., JACQUELINE Consulting Unavailable TICO, STEPHANIE Attending Unavailable TICO, STEPHANIE Consulting Unavailable AICHHOLZ, PIG FURNACE OPERATOR MCKAYLA Primary Care Unavailable TICO, STEPHANIE Admitting Unavailable REGLA ., DR DUMONT Admitting Unavailable AICHHOLZ, PIG FURNACE OPERATOR MCKAYLA Primary Care Unavailable REGLA ., DR DUMONT Attending Unavailable ARAUZ ., DR DUMONT Consulting Unavailable COLLIN HUERTAS Consulting Unavailable CECILIA KAUFMAN Admitting Unavailable CECILIA KAUFMAN Attending Unavailable AICHHOLZ, PIG FURNACE OPERATOR MCKAYLA Primary Care Unavailable COMFORT PRETTY Attending Unavailable COMFORT PRETTY Admitting Unavailable AICHHOLZ, PIG FURNACE OPERATOR MCKAYLA Primary Care Unavailable AICHHOLZ, PIG FURNACE OPERATOR MCKAYLA Admitting Unavailable AICHHOLZ, PIG FURNACE OPERATOR MCKAYLA Primary Care Unavailable AICHHOLZ, PIG FURNACE OPERATOR MCKAYLA Attending Unavailable AICHHOLZ, PIG FURNACE OPERATOR MCKAYLA Consulting Unavailable LAKSHMIPATHY ., NARENDRANATH Attending Anette vailable LAKSHMIPATHY ., NARENDRANATH Consulting Anette vailable LAKSHMIPATHY ., NARENDRANATH Admitting Anette vailable AICHHOLZ, PIG FURNACE OPERATOR MCKAYLA Primary Care Unavailable VALENZUELA ., GIL Consulting Unavailable MORTENSEN ., DR CHAPARRO Aguillon Attending Unavailable MORTENSEN ., DR CHAPARRO Aguillon Admitting Unavailable AICHHOLZ, PIG FURNACE OPERATOR MCKAYLA Primary Care Unavailable VALENZUELA ., GIL Consulting Unavailable MORTENSEN ., DR CHAPARRO Aguillon Admitting Unavailable AICHHOLZ, PIG FURNACE OPERATOR MCKAYLA Primary Care Unavailable MORTENSEN ., DR CHAPARRO Aguillon Attending Unavailable HALKER ., SUBHASH Consulting Unavailable LAKSHMIPATHY ., NARENDRANATH Admitting Anette vailable LAKSHMIPATHY ., NARENDRANATH Attending Anette vailable AICHHOLZ, PIG FURNACE OPERATOR MCKAYLA Primary Care Unavailable MORTENSEN ., DR CHAPARRO Aguillon Attending Unavailable MORTENSEN ., DR CHAPARRO Aguillon Admitting Unavailable VALENZUELA ., GIL Consulting Unavailable AICHHOLZ, PIG FURNACE OPERATOR MCKAYLA Primary Care Unavailable VALENZUELA ., GIL Consulting Unavailable MORTENSEN ., DR CHAPARRO Aguillon Attending Unavailable MORTENSEN ., DR CHAPARRO Aguillon Admitting Unavailable AICHHOLZ, PIG FURNACE OPERATOR MCKAYLA Primary Care Unavailable HATTIE BRODERICK Attending Unavailable HATTIE BRODERICK Admitting Unavailable AICHHOLZ, PIG FURNACE OPERATOR MCKAYLA Primary Care Unavailable AICHHOLZ, PIG FURNACE OPERATOR MCKAYLA Admitting Unavailable AICHHOLZ, PIG FURNACE OPERATOR MCKAYLA Consulting Unavailable AICHHOLZ, PIG FURNACE OPERATOR MCKAYLA Primary Care Unavailable AICHHOLZ, PIG FURNACE OPERATOR MCKAYLA Attending Unavailable AICHHOLZ, PIG FURNACE OPERATOR MCKAYLA Primary Care Unavailable MISC, DR LESLIE Admitting Unavailable MISC, DR LESLIE Attending Unavailable MISC, DR LESLIE Consulting Unavailable DIAB ., MARIANO Admitting Unavailable DIAB ., MARIANO Attending Unavailable DIAB ., MARIANO Consulting Unavailable AICHHOLZ, PIG FURNACE OPERATOR MCKAYLA Primary Care Unavailable RASTEGAR, RICCO Consulting Unavailable AICHHOLZ, PIG FURNACE OPERATOR MCKAYLA Admitting Unavailable AICHHOLZ, PIG FURNACE OPERATOR MCKAYLA Primary Care Unavailable AICHHOLZ, PIG FURNACE OPERATOR MCKAYLA Attending Unavailable AICHHOLZ, PIG FURNACE OPERATOR MCKAYLA Consulting Unavailable DR PATRICIA VELOZ Consulting Unavailable TAMLYN ., CECILIA Attending Unavailable TAMLYN ., CECILIA Admitting Unavailable DR PATRICIA VELOZ Consulting Unavailable AICHHOLZ, PIG FURNACE OPERATOR MCKAYLA Primary Care Unavailable TAMLYN ., CECILIA Consulting Unavailable MORTENSEN ., DR CHAPARRO Aguillon Attending Unavailable FESTUS ., DR CHAPARRO Aguillon Consulting Unavailable FESTUS ., DR CHAPARRO Aguillon Admitting Unavailable AICHHOLZ, PIG FURNACE OPERATOR MCKAYLA Primary Care Unavailable HATTIE BRODERICK Attending Unavailable HATTIE BRODERICK Consulting Unavailable HATTIE BRODERICK Admitting Unavailable AICHHOLZ, PIG FURNACE OPERATOR MCKAYLA Primary Care Unavailable HATTIE BAUTISTA Consulting Unavailable AICHHOLZ, PIG FURNACE OPERATOR MCKAYLA Admitting Unavailable AICHHOLZ, PIG FURNACE OPERATOR MCKAYLA Attending Unavailable AICHHOLZ, PIG FURNACE OPERATOR MCKAYLA Consulting Unavailable AICHHOLZ, PIG FURNACE OPERATOR MCKAYLA Primary Care Unavailable Ty Amin MD Primary Care Provider Ty Amin MD Primary Care Provider Aichholz PARI MUTUEL CLERK, Mckayla Unavailable Aichholz PARI MUTUEL CLERK, Mckayla Unavailable AICHHOLZ, MCKAYLA Attending Unavailable LIBBY, AHMAD F Attending Unavailable AICHHOLZ, MCKAYLA Attending Unavailable AICHHOLZ, MCKAYLA Attending Unavailable AICHHOLZ, MCKAYLA Attending Unavailable LIBBY, AHMAD F Attending Unavailable AICHHOLZ, MCKAYLA Attending Unavailable LIBBY, AHMAD F Attending Unavailable LIBBY, AHMAD F Referring Unavailable AICHHOLZ, MCKAYLA Attending Unavailable Aichholz PARI MUTUEL CLERK, Mckayla Unavailable Aichholz PARI MUTUEL CLERK-C, Mckayla J Primary Care Provider [phone] Price Arora DO Attending Provider [phone] Flynn Urias DPM Attending Provider Aichholz PARI MUTUEL CLERK-C, Mckayla J Attending Provider AMI ORO Attending Unavailable DAKOTAH BRIDGES Attending Unavailable Elbert ARAUZ Attending Unavailable GAVIOTA ADAMES Attending Unavailable Ty Amin MD Primary Care Provider Aichholz PARI MUTUEL CLERK, Mckayla Unavailable Aichholz PARI MUTUEL CLERK, Mckayla Unavailable Ty Amin MD Primary Care Provider Valdez PHIPPS, Corinne Ghosh Attending Unavail able Aichholz KAITARA TARAKA-PIG FURNACE OPERATOR, Mckayla Lennon Primary Care Unava ilable Bob KAITARA TARAKA-PIG FURNACE OPERATOR, Omero Lovell Consulting Unav ailable Bob KAITARA TARAKA-PIG FURNACE OPERATOR, Omero Lovell Attending Unav ailable Adonay DPM, Flynn Arzate Attending Unavailab le Aichholz KAITARA TARAKA-PIG FURNACE OPERATOR, Mckayla Lennon Primary Care Unava ilable Bob KAITARA TARAKA-PIG FURNACE OPERATOR, Omero Lovell Attending Unav ailable Adonay DPM, Flynn Arzate Attending Unavailab le Adonay DPM, Flynn Arzate Attending Unavailab le Aichholz KAITARA TARAKA-PIG FURNACE OPERATOR, Mckayla Lennon Primary Care Unava ilable Adonay DPM, Flynn Arzate Referring Unavailab le Bob KAITARA TARAKA-PIG FURNACE OPERATOR, Omero Lovell Attending Unav ailable Allergies Allergy ClassificationReported Allergen(s)Allergy TypeDate of OnsetReaction(s) Facility (1 source)No Known Medication Allergies; Translations: [No Known Medication Allergies]Propensity to adverse reactions (disorder)[facility] Medications Current Medications MedicationDrug Class(es)DatesSig (Normalized)Sig (Original)0.5 ML tirzepatide 30 MG/ML Auto-Injector [Mounjaro] (1 source)Start: 67-96-4912pjwkif 15 mg by subcutaneous injection every week Mounjaro 15 mg/0.5 mL subcutaneous solution INJECT 15MG SUBCUTANEOUSLY ONCE A WEEK Start Date: 06/11/24 Status: Orderedacetaminophen 325 mg / HYDROcodone bitartrate 5 mg oral tablet (20 sources)Opioid AgonistStart: 67-15-9330pfszrcccwjlbm-hydrocodone 325 mg-5 mg oral tablet Refill(s) 0 Start Date: 02/06/22 Status: OrderedStart: 12-13-2017 End: 22-83-9561uhap 1 tablet by mouth every four hoursHydrocodone-Acetaminophen ([place]) 5-325 mg tablet Discontinued 1 TAB PO Q4H 15 0 December 13, 2017 April 05, 2025 12:52pm Fracture of humerus painStart: 67-71-8580hhjj 1 tablet by mouth every four to six hours as needed for painHYDROcodone-acetaminophen ([place]) 5-325 MG tablet 1 tablet 3 (three) times a day as needed for severe pain. Activetake 1 tablet by mouth twice daily as neededNorco 5-325 MG 1 tablet as needed Orally TWICE A DAY Activealbuterol 0.83 mg/ml inhalation solution (20 sources)beta2-Adrenergic AgonistStart: 80-83-7609trkc 2.5 mg by inhalation every four to six hours as neededStart: 75-62-3559kociaahdl 0.083% Inh Tracey 3 mL Refill(s) 0 [...] oral tablet (20 sources)Tricyclic AntidepressantStart: 02-06-2022 End: 85-75-5158nqgn 1 tablet by mouth once daily at bedtimeaspirin 81 mg chewable tablet (20 sources)Platelet Aggregation Inhibitor, Nonsteroidal Anti-inflammatory Drug Start: 11-01-2023 End: 61-40-2248lyrk 1 tablet by mouth once dailyaspirin 81 MG chewable tablet Chew 81 mg in the morning. 0 Activebaclofen 10 mg oral tablet (20 sources)gamma-Aminobutyric Acid-ergic AgonistStart: 73-63-8218lukd 1 tablet by mouth every eight hours as neededStart: 41-96-1541tpmg 1 tablet by mouth in the morning, then take 1 tablet by mouth in the evening, then take 1 tablet by mouth at bedtimebaclofen (Lioresal) 10 MG tablet Take 10 mg by mouth in the morning and 10 mg in the evening and 10mg before bedtime. 06/24/2024 Vbbpvt51 actuat budesonide 0.16 mg/actuat / formoterol fumarate [...] tablet (20 sources)Histamine-1 Receptor AntagonistStart: 11-01-2023 End: 38-68-6434ewkw 1 tablet by mouth once daily as neededtake 1 tablet by mouth in the morningcetirizine (ZyrTEC) 10 MG tablet Take 10 mg by mouth in the morning. 0 Activedapagliflozin 10 mg oral tablet (20 sources)Sodium-Glucose Cotransporter 2 InhibitorStart: 01-17-2024 End: 26-41-4217fvxl 1 tablet by mouth once dailyStart: 08-14-2023 End: 11-27-8133zkej 1 tablet by mouth in the morningdapagliflozin (Farxiga) 10 MG Indications: Type 2 diabetes mellitus with unspecified complications ( CMS/HCC) Take 1 tablet (10 mg) by mouth in the morning. 90 tablet 1 08/14/2023 11/12/2023 Activediclofenac sodium 75 mg delayed release oral tablet (20 sources)Nonsteroidal Anti-inflammatory DrugStart: 18-62-0969uwut 1 tablet by mouth twice daily0.5 ML dulaglutide 9 MG/ML Auto-Injector [Trulicity] (4 sources)GLP-1 Receptor AgonistStart: 47-29-7760Ucrfwllkd Pen 4.5 mg/0.5 mL subcutaneous solution Refills(s) [...] sources)Serotonin and Norepinephrine Reuptake InhibitorStart: 11-01-2023 End: 95-90-8843qytb 1 capsule by mouth twice dailyStart: 07-23-2023 End: 24-97-8418czyn 1 capsule by mouth in the morningDULoxetine (Cymbalta) [address] capsule Indications: Anxiety and depression (CMS/HCC) Take 1 capsule(60 mg) by mouth in the morning and 1 capsule (60 mg) before bedtime. Do not crush or chew.. 60 capsule 3 07/23/2023 08/22/2023 ActiveStart: 05-32-6582CEFignkcrk 30 mg Cap-EC Refills(s) 0 Start Date: 02/06/22 Status: OrderedDULoxetine 30 mg Cap-EC (2 sources)Start: 37-36-9212GVDqadptge 30 mg Cap-EC Refills(s) 0 Start Date: 02/06/22 Status: Orderedergocalciferol 1.25 mg oral capsule (20 sources)Provitamin D2 CompoundStart: 41-39-1299Zxygg: 01-16-2025 End: 35-40-3078yqkq 1 capsule by mouth every weekergocalciferol (Vitamin D2) 1.25 MG (52946 UT) capsule Indications: Vitamin D deficiency, unspecified Take 1 capsule (1.25 mg) by mouth 1 (one) time per week 12 capsule 1 01/16/2025 04/10/2025 ActiveStart: 10-27-2024 End: 26-42-4445iiee 1 capsule by mouth two times weeklyergocalciferol (Vitamin D2) 1.25 MG (85190 UT) capsule Indications: Vitamin D deficiency, unspecified Take 1 capsule (1.25 mg) by mouth 2 (two) times a week 24 capsule 1 10/27/2024 01/19/2025 ActiveStart: 04-06-2024 End: 75-42-6378nnts 1 capsule by mouth every weekergocalciferol (Vitamin D2) 1.25 MG (06632 UT) capsule Indications: Vitamin D deficiency, unspecified TAKE 1 CAPSULE BY MOUTH ONE TIME PER WEEK 12 capsule 1 04/06/2024 10/27/2024 Discontinued (Reorder)fluconazole 150 mg oral tablet (20 sources)Azole AntifungalStart: 08-27-2024 End: 17-53-2015slffixmsmno (Diflucan) 150 MG tablet Indications: Antibiotic- induced yeast infection One time dose,repeat in 3 days . Do not take cholesterol pill while taking this medication. Once finished then resume 2 tablet 1 01/26/2025 ActiveStart: 08-17-2023 End: 01-70-9232fzwhrcnsact (Diflucan) 150 MG tablet Indications: Vaginal yeast infection Take 1 tablet (150 mg) bymouth in the morning for 2 days. One time dose, may repeat in 3 days. 2 tablet 1 08/17/2023 08/19/2023 Active End: 94-08-1410bvijmzatvtp (Diflucan) 150 MG tablet Take 200 mg by mouth in the morning. 0 08/17/2023 Discontinued(Reorder)furosemide 20 mg oral tablet (20 sources)Loop DiureticStart: 09-22-2024 End: 08-05-6947pgwe 1 tablet by mouth once dailyStart: 04-06-2024 End: 35-99-9167ciqy 1 tablet by mouth once dailyfurosemide (Lasix) 40 MG tablet Indications: Bilateral lower extremity edema Take 1 tablet (40 mg) by mouth Daily 90 tablet 1 04/06/2024 ActiveStart: 12-13-2017 End: 75-38-3357zbed 1 tablet by mouth once daily as [...] oral tablet (20 sources)Arteriolar VasodilatorStart: 09-13-2023 End: 02-89-7489dsjr 1 tablet by mouth twice dailysodium hypochlorite 2.5 mg/ml topical solution (14 sources)Start: 70-27-4849OdTdvi 0.25 % external solution APPLY TO GAUZE [...] with supper. 0 ActiveNovoLog (5 sources)Insulin AnalogStart: 37-06-2345IxoqIzj SubCutaneous, TIDAC, Refills(s) 0 Start Date: 02/06/22 Status: OrderedNovoLOG 100 UNIT/ML as directed Injection SLIDING SCALE BEFORE EACH MEAL Active3 ml insulin glargine 100 unt/ml pen injector (20 sources)Insulin AnalogStart: 03-02-4851Nvwsw: 15-66-6808ajvwqcu glargine (Lantus SoloStar) 100 UNIT/ML pen Indications: Type 2 diabetes mellitus with hyperglycemia, with long-term current use of insulin (HCC) INJECT 58 UNITS SUBCUTANEOUSLY TWICE A DAY 105mL 2 02/16/2025 ActiveStart: 01-29-2025 End: 64-54-0500pverid 58 [IU] by subcutaneous injection in the morninginsulin glargine (Lantus) 100 UNIT/ML injection Indications: Type 2 diabetes mellitus with hyperglycemia, with long-term current use of insulin (HCC) Inject 58 Units under the skin in the morning and58 Units before bedtime. 104.4 mL 1 01/29/2025 07/28/2025 ActiveStart: 83-41-7250Zthils SoloStar 100 UNIT/ML pen 08/26/2024 ActiveStart: 10-30-2023 End: 08-30-5463Lzxzmr SoloStar 100 UNIT/ML pen 10/30/2023 04/14/2024 Discontinued (Therapy completed)Start: 84-65-9556Zykgks Solostar Pen 100 units/mL subcutaneous solution Refills(s) 0 Start Date: 02/06/22 Status: Ordered Start: 12-13-2017 End: 27-67-4062glvjen 50 [IU] by subcutaneous injection twice dailyInsulin Glargine (Lantus U-100 Insulin) 100 unit/mL Solution Discontinued 50 UNIT SUBCUT Twice daily December 13, 2017 12:00am April 05, 2025 12:53pmLantus SoloStar 100 UNIT/ML as directed Subcutaneous 58 UNITS ONCE A DAY Active3 ml insulin lispro 100 unt/ml pen injector (20 sources)Insulin AnalogStart: 10-06-2023 End: 72-45-5881AwxtVIR KWIKPEN 100 UNIT/ML injection Inject under the skin 10/06/2023 04/14/2024 Discontinued (Therapy completed)Start: 68-20-1313kkckmj 1 [IU] by subcutaneous injection before mealtimeInsulin [...] lactate 120 mg/ml topical lotion (20 sources)Start: 30-42-7338Vsmxg: 30-25-2495nnzaiibe lactate (Lac-Hydrin) 12 % lotion 07/22/2024 ActiveStart: 06-81-9194lopfddhq lactate (Lac-Hydrin) 12 % lotion APPLY TO BILATERAL FEET EVERY DAY 07/22/2024 Activelisinopril 20 mg oral tablet (20 sources)Angiotensin Converting Enzyme InhibitorStart: 02-06-2022 End: 07-41-5729zxew 1 tablet by mouth once dailymeloxicam (5 sources)Nonsteroidal Anti-inflammatory DrugStart: 46-07-5548ygoqjigtx Daily, Refills(s) 0 Start Date: 02/06/22 Status: Orderedtake 1 tablet by mouth every twenty-four hoursMeloxicam 7.5 MG 1 tablet Orally Once a day ActivemetFORMIN hydrochloride 1000 mg oral tablet (1 source)Biguanidetake 1 tablet by mouth twice daily at mealtimemetFORMIN (GLUCOPHAGE) 1000 MG tablet Take 1,000 mg by mouth 2 times daily (with meals). 0 ActiveMounjaro 10 MG/0.5ML solution pen-injector (4 sources)Start: 10-22-2023 End: 64-23-6478huueth 10 mg by subcutaneous injection every weekMounjaro 10 MG/0.5ML solution pen-injector INJECT 10MG SUBCUTANEOUSLY ONCE A WEEK 10/22/2023 04/14/2024 Discontinued (Therapy completed)Start: 93-49-8471rlorzs 10 mg by subcutaneous injection every weekMounjaro 10 MG/0.5ML solution pen-injector INJECT 10MG SUBCUTANEOUSLY ONCE A WEEK 10/22/2023 ActiveMounjaro 15 MG/0.5ML solution auto-injector (8 sources)Start: 27-01-0007Vorozrdv 15 MG/0.5ML solution auto-injector Inject 15 mg as directed every 7 (seven) days 02/18/2024 Activenaloxone hydrochloride 40 mg/ml nasal spray (20 sources)Opioid AntagonistStart: 99-20-4150Conom: 19-86-4947dfjtgvpx (Narcan) 4 mg/0.1 mL nasal spray Administer 4 mg into affected nostril(s) if needed 07/04/2024 Djseky28 hr nicotine 0.875 mg/hr transdermal system (20 sources)Cholinergic Nicotinic AgonistStart: 07-14-2024 End: 79-82-0634yuikfroo (Nicoderm, Step 1) 21 MG/24HR patch Indications: [...] capsule (20 sources)Proton Pump InhibitorStart: 12-25-2023 End: 64-75-8484whui 1 capsule by mouth once dailytake 1 capsule by mouth before mealtimeomeprazole (PriLOSEC) [address] capsule Take 20 mg by mouth in the morning. Take before meals. Do not crush or chew. . 0 ActiveOxygen (20 sources)oxygen (O2) gas Inhale 2 L/min continuously via nasal canula Active potassium chloride 10 meq extended release oral tablet (20 sources)Start: 96-31-5565Ltpox: 02-06-2022 End: 97-27-3169zvyc 1 capsule by mouth once daily in the morningpotassium chloride ER (Micro-K) 10 MEQ ER capsule Indications: Bilateral lower extremity edema Take1 capsule (10 mEq) by mouth Daily Take 1 capsule (10 mEq) by mouth in the morning. 90 capsule 1 01/26/2025 04/26/2025 ActiveStart: 12-13-2017 End: 26-99-4727Cnhigtgic Chloride (Klor-Con 10) 10 mEq Tablet Extended Release Discontinued 10 MEQ PO Twice daily December 13, 2017 12:00am April 05, 2025 12:56pmtake 1 tablet by mouth every twenty-four hoursPotassium Chloride ER 10 MEQ 1 tablet with food Orally Once a day ActivepredniSONE 10 mg oral tablet (11 sources)Start: 57-63-6654jalzyqDAMD (Deltasone) 10 MG tablet 4 TABS X3 DAYS, 3TABS X3 DAYS, 2 TABS X3 DAYS, 1 TAB X3 DAYS, 1/2 TAB X4 DAYS 12/05/2024 Active pregabalin 150 mg oral capsule (20 sources)Start: 15-57-5038mgka 1 capsule by mouth once dailyStart: 08-13-2024 take 1 capsule by mouth once dailypregabalin (Lyrica) 150 MG capsule Take 150 mg by mouth Daily 08/13/2024 ActiveStart: 79-27-4754Nbkhle Oral, Refills(s) 0 Start Date: 02/06/22 Status: OrderedStart: 12-13-2017 End: 76-42-2014uhmc 1 capsule by mouth in the morningpregabalin (Lyrica) 300 MG capsule Indications: Diabetic polyneuropathy associated with type 2 diabetes mellitus (HCC) Take 1 capsule (300 mg) by mouth in the morning and 1 capsule (300 mg) before bedtime. 60 capsule 5 04/14/2024 Activeroflumilast 0.5 mg oral tablet (20 sources)Phosphodiesterase 4 InhibitorStart: 01-04-2024 End: 17-88-3282lexw 1 tablet by mouth once dailysimvastatin 10 mg oral tablet (20 sources)HMG-CoA Reductase InhibitorStart: 12-19-2024 End: 09-93-9099ehxm 1 tablet by mouth once daily at bedtimeStart: 04-06-2024 End: 86-92-2313fbcr 1 tablet by mouth at bedtimesimvastatin (Zocor) 10 MG tablet Indications: Hyperlipidemia, unspecified (CMS/HCC) Take 1 tablet (10 mg) by mouth at bedtime 90 tablet 1 08/27/2024 ActiveStart: 06-15-2023 End: 39-95-9913yhao 1 tablet by mouth in the morningsimvastatin (Zocor) 10 MG tablet Indications: Hyperlipidemia, unspecified (CMS/HCC) Take 1 tablet (10 mg) by mouth in the morning. 90 tablet 1 06/15/2023 09/13/2023 ActiveStart: 12-13-2017 End: 57-50-9963sgkp 1 tablet by mouth once daily in the eveningSimvastatin 20 mg Tablet Discontinued 20 MG PO Every evening December 13, 2017 12:00am March 1:00pmsulfamethoxazole 800 mg / trimethoprim 160 mg oral tablet (15 sources)Dihydrofolate Reductase Inhibitor Antibacterial, Sulfonamide AntimicrobialStart: 08-76-7779lfqy 1 tablet by mouth twice daily sulfamethoxazole-trimethoprim (Bactrim DS) 800-160 MG per tablet TAKE 1 TABLET BY MOUTH TWICE A DAYFOR 14 DAYS 01/14/2025 ActiveStart: 08-27-2024 End: 92-43-7436teawffznqbrgkbfv-trimethoprim (Bactrim DS) 800-160 MG per tablet 08/27/2024 10/27/2024 Discontinued(Therapy completed)Symbicort 160/4.5 inhalation aerosol with adapter (3 sources)Start: 55-47-7140Lbvuwmigh 160/4.5 inhalation aerosol with adapter Refill(s) 0 Start Date: 02/06/22 Status: Ybooehk16 actuat tiotropium 0.0025 mg/actuat inhalation spray (7 sources)AnticholinergicStart: 61-56-9485Rsyogtr Respimat 60 ACT 2.5 mcg/inh inhalation aerosol Refills(s) 0 Start Date: 02/06/22 Status: Orderedtake 2 puff(s) by inhalation in the morningtiotropium (Spiriva Respimat) 2.5 MCG/ACT inhaler Inhale 2 puffs in the morning. 0 Activetake 2 puff(s) by inhalation twice daily Spiriva Respimat 2.5 MCG/ACT 2 puffs Inhalation TWICE A DAY ActiveTirzepatide (2 sources)Start: 60-19-5000Nixdblyzfgi (Mounjaro) 15 MG/0.5ML solution auto-injector (20 sources)Start: 23-82-2766ngulbo 15 mg by subcutaneous injection every week Tirzepatide (Mounjaro) 15 MG/0.5ML solution auto-injector Indications: Type 2 diabetes mellitus with other circulatory complications (HCC) Inject 15 mg under the skin 1 (one) time per week 6 mL 1 02/27/2025 ActiveStart: 16-11-4279jpgpuw 15 mg by subcutaneous injection every weekTirzepatide (Mounjaro) 15 MG/0.5ML solution auto-injector Indications: Type 2 diabetes mellitus with other circulatory complications (HCC) INJECT 15MG SUBCUTANEOUSLY ONCE A WEEK 6 mL 1 07/07/2024 ActiveStart: 27-53-7753miirit 15 mg by subcutaneous injection every weekTirzepatide (Mounjaro) 15 MG/0.5ML solution auto-injector Indications: Type 2 diabetes mellitus with other circulatory complications INJECT 15MG SUBCUTANEOUSLY ONCE A WEEK 6 mL 1 07/07/2024 ActiveStart: 32-25-9247hyoaxk 15 mg by subcutaneous injection every weekTirzepatide [...] oral tablet (20 sources)Partial Cholinergic Nicotinic AgonistStart: 94-11-4507rfcb 1 tablet by mouth twice dailyStart: 12-19-2024 End: 01-68-8047qvoo 1 tablet by mouth in the morningvarenicline (Chantix) 1 MG tablet Indications: Tobacco user , Encounter for smoking cessation counseling TAKE 1 TABLET BY MOUTH IN THE MORNING AND 1 TABLET BEFORE BEDTIME. TAKE WITH FULL GLASS OF WATER. 60 tablet 1 03/09/2025 ActiveStart: 08-27-2024 End: 41-77-9640basb 1 tablet by mouth in the morningvarenicline (Chantix) 1 MG tablet Indications: Tobacco user , Encounter for smoking cessation counseling Take 1 tablet (1 mg) by mouth in the morning and 1 tablet (1 mg) before bedtime. Take with full glass of water.. 60 tablet 1 08/27/2024 ActiveStart: 12-05-2023 End: 51-11-2445Ydluarmukrl Tartrate, Starter, 0.5 MG X 11 & 1 MG X 42 tablet therapy pack [facility] 12/05/2023 07/14/2024 Discontinued (Therapy completed)Start: 97-87-5855Foeqvbnojmm Tartrate, Starter, 0.5 MG X 11 & 1 MG X 42 tablet therapy pack [facility] 12/05/2023 Active Completed/Discontinued Medications MedicationDrug Class(es)DatesSig (Normalized)Sig (Original)amoxicillin 875 mg / clavulanate 125 mg oral tablet (6 sources)Penicillin-class AntibacterialStart: 12-05-2024 End: 62-06-4942okoa 1 tablet by mouth every twelve hoursamoxicillin-clavulanate (Augmentin) 875-125 MG tablet Take 1 tablet by mouth every 12 (twelve) hours 12/05/2024 01/26/2025 Discontinued (Therapy completed)cephalexin 500 mg oral capsule (9 sources)Cephalosporin AntibacterialStart: 2024 End: 14-13-7832qvaawftkop (Keflex) 500 MG capsule 2024 10/27/2024 Discontinued (Therapy completed)Glucose Blood (ACCU-CHEK JAQUI PLUS ) (14 sources) End: 87-50-1959Hjcksup Blood (ACCU-CHEK JAQUI PLUS ) 4 (four) times a day. 07/14/2024 Discontinued (Therapy completed)Glucose Blood (ACCU-CHEK JAQUI PLUS ) 4 (four) times a day. ActiveGlucose Blood (ACCU-CHEK JAQUI PLUS ) 4 (four) times a day. 0 Active3 ml liraglutide 6 mg/ml pen injector (6 sources)GLP-1 Receptor Agonist End: 53-58-5616fmdnwkuasvp (Victoza) 18 MG/3ML injection Inject under the skin Daily 07/14/2024 Discontinued (Therapy completed)naproxen 500 mg oral tablet (2 sources)Nonsteroidal Anti-inflammatory DrugStart: 12-13-2017 End: 42-27-3954rxcl 1 tablet by mouth twice daily at mealtimeNaproxen 500 mg tablet Discontinued 500 MG PO Twice daily 20 0 December 13, 2017 12:00am April 05, 2025 12:53pm administer with food or milknortriptyline 50 mg oral capsule (18 sources)Tricyclic AntidepressantStart: 12-13-2017 End: 79-14-4586icwn 1 capsule by mouth once daily at bedtimeNortriptyline 50 mg Capsule Discontinued 50 MG PO Daily at bedtime December 13, 2017 12:00am April 05, 2025 12:53pmubrogepant 100 mg oral tablet (12 sources) End: 95-78-4110pjjn 1 tablet by mouth every twenty-four hours as needed Ubrogepant (Ubrelvy) 100 MG tablet Take 100 mg by mouth Daily as needed 07/14/2024 Discontinued (Therapy completed) Problems Active Problems Problem ClassificationProblemDateDocumented DateEpisodic/ChronicAbdominal pain (6 sources)Left flank pain; Translations: [Lower abdominal pain, unspecified] Onset: 712569-70-1458IhpajrpaUdcerrnt foot deformities (1 source)Other hammer toe(s) (acquired), right foot; Translations: [OTHER HAMMER TOES ACQUIRED RT FOOT]Onset: 12-75-7637IjwxpgsSfzxvayv foot deformities (1 source)Other hammer toe(s) (acquired), left foot; Translations: [OTHER HAMMER TOES ACQUIRED LT FOOT]Onset: 61-77-4348XckpiloVpyolhx disorders (20 sources)Mixed anxiety and depressive disorder; Translations: [Anxiety disorder, unspecified]Onset: 258007-49-6020TaweuyfCzufqt (20 sources)Asthma; Translations: [Unspecified asthma, uncomplicated]Onset: 926995-96-0971EvpumccMktzgq of cervix (20 sources)Malignant tumor of cervix; Translations: [Malignant neoplasm of cervix uteri, unspecified]Onset: 044524-80-2205MvheurdCmfcxe of cervix (2 sources)History of malignant neoplasm of cervix; Translations: [Personal history of malignant neoplasm of cervix uteri]18-54-7504LrhvsrqeWfvlmny kidney disease (5 sources)Chronic kidney disease; Translations: [Chronic kidney disease, unspecified]Onset: 02-20-2022 Resolved: 98-14-2849EanfshkQwqisft obstructive pulmonary disease and bronchiectasis (20 sources)Pulmonary emphysema; Translations: [Chronic obstructive pulmonary disease with (acute) exacerbation]Onset: 245827-52-6828DmidtvqXdekebz ulcer of skin (20 sources)Non-pressure chronic ulcer of other part of right lower leg limited to breakdown of skin; Translations: [Non-pressure chronic ulcer of other part of left lower leg limited to breakdown of skin]Onset: 583912-76-4694Wdvrzht Congestive heart failure; nonhypertensive (20 sources)Chronic diastolic heart failure; Translations: [Chronic diastolic (congestive) heart failure]Onset: 964939-45-2967AlsoepcDwchvori mellitus with complications (20 sources)Disorder of kidney due to diabetes mellitus; Translations: [Type 2 diabetes mellitus with diabetic chronic kidney disease]Onset: 02-20-2022 Resolved: 42-45-9471RblioxaAjyhhgql mellitus without complication (13 sources)Type 2 diabetes mellitus; Translations: [Type 2 diabetes mellitus without complications]Onset: 367337-11-3427AdsbvfxJnxvptiak of lipid metabolism (20 sources)Pure hypercholesterolemia, unspecified; Translations: [Hyperlipidemia, unspecified]Onset: 927462-25-9825UefqwanMzbcksbylr disorders (20 sources)Gastro-esophageal reflux disease without esophagitis; Translations: [Gastroesophageal reflux disease]Onset: 12-05-2022 Resolved: 940673-92-2861PuvgmatAjikriibs hypertension (20 sources)Hypertensive disorder; Translations: [Essential (primary) hypertension]Onset: 061905-67-7409PhwzzbtSexyshpmpjilw symptoms and ill- defined conditions (20 sources)Mixed incontinence; Translations: [Incontinence]Onset: 02-06-2022 ChronicGout and other crystal arthropathies (20 sources)Gout; Translations: [Gout, unspecified]Onset: ChronicHypertension with complications and secondary hypertension (5 sources)Chronic kidney disease due to hypertension; Translations: [Hypertensive chronic kidney disease withstage 1 through stage 4 chronic kidney disease, or unspecified chronic kidney disease]Onset: 02-20-2022 Resolved: 02-82-4422QauvkgqHgsu disorders (1 source)Major depressive disorder, single episode, unspecified; Translations: [ANASTACIO DEPRESS D/O SINGLE EPIS UNS]Onset: 92-99-4376FnlbuysUlnjtoabphsnq gastroenteritis (1 source)Noninfective gastroenteritis and colitis, unspecified; Translations: [NONINFECTIVE GE AND COLITIS UNS]Onset: 29-45-4411BeovnklfKqvxlftlqic deficiencies (20 sources)Vitamin D deficiency; Translations: [Vitamin D deficiency, unspecified]Onset: 845456-99-2996OfjnytiYyqbivffrjwkit (20 sources)Arthritis; Translations: [Unspecified osteoarthritis, unspecified site]Onset: 338333-46-8979CipslkpYccrp aftercare (1 source)Other adjunct faculty for medical terminology (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 therapy; Translations: [OTH FPC CURRENT DRUG THERAPY]Onset: 70-69-0202XgnkwehiOfixd aftercare (1 source)continuous churn buttermaker (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; Translations: [QUALITY ASSURANCE QA LAB TECHNICIAN CURRENT USE OF ASPIRIN]Onset: 80-36-0520SjqxuujgSeogj aftercare (6 sources)Long-term current use of insulin; Translations: [continuous churn buttermaker (current) use of insulin]51-37-4736FfhtyycsYjnhj and ill-defined heart disease (20 sources)Cardiomegaly; Translations: [Cardiomegaly]Onset: 10-25-2017 79-37-8678RifzbiqRrieu and ill-defined heart disease (1 source)Cardiomegaly; Translations: [Cardiomegaly]Onset: 75-52-5531Uxqytiq Other and unspecified benign neoplasm (1 source)Benign lipomatous tumor; Translations: [Benign lipomatous neoplasm of other sites]Onset: 37-68-4653EgcdynyzOylls bone disease and musculoskeletal deformities (1 source)Acquired absence of other left toe(s); Translations: [ACQUIRED ABSENCE OF OTHER LEFT TOES]Onset: 00-69-0954FijqgfppMcagf diseases of kidney and ureters (1 source)Urinary tract obstruction; Translations: [Other obstructive and reflux uropathy]Onset: 62-48-9286BjixnjuiJwtrf diseases of veins and lymphatics (1 source)Chronic venous hypertension (idiopathic) with ulcer and inflammation of bilateral lower extremity; Translations: [CHRN KEO HTN ULCR INFLAM ALEX LW EXT]Onset: 92-89-1816MsredvpZeqpk diseases of veins and lymphatics (1 source)Chronic venous hypertension (idiopathic) with ulcer of left lower extremity; Translations: [CHRON VENOUS HTN W/ULCER LT LW EXT]Onset: 09-01-2022 ChronicOther diseases of veins and lymphatics (1 source)Lymphedema, not elsewhere classified; Translations: [LYMPHEDEMA NOT ELSEWHERE CLASSIFIED]Onset: 99-47-4045EmobrzzYfnou diseases of veins and lymphatics (5 sources)Chronic peripheral venous hypertension with lower extremity complication; Translations: [Chronic venous hypertension (idiopathic) with ulcer of bilateral lower extremity]Onset: 734121-66-7137FctlknqWgbmp diseases of veins and lymphatics (20 sources)Chronic peripheral venous hypertension; Translations: [Chronic venous hypertension (idiopathic) with ulcer of bilateral lower extremity]Onset: 272809-15-0271YhtwdntKzzrp diseases of veins and lymphatics (18 sources)Stasis dermatitis and venous ulcer of right lower extremity due to chronic peripheral venous hypertension; Translations: [Chronic venous hypertension (idiopathic) with ulcer and inflammation of rightlower extremity] Onset: 705986-87-5372NmygonwJrmei endocrine disorders (2 sources)Disorder of adrenal gland; Translations: [Other specified disorders of adrenal gland]Onset: 43-98-2233SnoolliQljfj endocrine disorders (20 sources)Adrenal mass; Translations: [Disorder of adrenal gland, unspecified] Onset: 228269-47-8010DndvhyhFxchu endocrine disorders (2 sources)Disorder of adrenal gland, unspecifiedOnset: 02-20-2022 Resolved: 09-07-4625ZapcaxpNykwo endocrine disorders (5 sources)Other specified disorders of adrenal gland; Translations: [OTHER SPEC DISORDERS ADRENAL GLAND]Onset: 06-42-4927DuwklolSzeoj gastrointestinal disorders (3 sources)Adrenal spqw16-37-5049UbeanhhqYftlr lower respiratory disease (1 source)Hypoxemia; Translations: [HYPOXEMIA]Onset: 56-60-6684RvkumgctIhlgg nervous system disorders (5 sources)Chronic pain syndrome; Translations: [CHRONIC PAIN SYNDROME]Onset: 69-64-6216GrjkfysHqbai nervous system disorders (1 source)Other chronic pain; Translations: [OTHER CHRONIC PAIN]Onset: 33-55-7145GwaegifDvyka non-traumatic joint disorders (4 sources)Pain in right hip; Translations: [PAIN IN RIGHT HIP]Onset: 04-27-2022 EpisodicOther nutritional; endocrine; and metabolic disorders (2 sources)Localized adiposity; Translations: [Localized adiposity]ChronicOther nutritional; endocrine; and metabolic disorders (20 sources)Body mass index 40+ - severely obese; Translations: [Body mass index (BMI) 50.0-59.9, adult]Onset: 684307-46-4823ChuydsdKdxym nutritional; endocrine; and metabolic disorders (3 sources)Body mass index (BMI) 50.0-59.9, adult; Translations: [BODY MASS INDEX BMI 50.0-59.9 ADULT]Onset: 54-86-5344JsjfdqiOiyre nutritional; endocrine; and metabolic disorders (3 sources)Morbid (severe) obesity due to excess calories; Translations: [MORBID SEVERE OBES D/T EXCESS NHI]Onset: 92-81-9205JlctnooKimho nutritional; endocrine; and metabolic disorders (1 source)Obesity, unspecified; Translations: [OBESITY UNSPECIFIED]Onset: 87-39-5465QazvaaxSyggr nutritional; endocrine; and metabolic disorders (20 sources)Obesity caused by energy imbalance; Translations: [Morbid (severe) obesity due to excess calories]Onset: 822389-22-4213PsygvzaNhung screening for suspected conditions (not mental disorders or infectious disease) (1 source)Encounter for screening mammogram for malignant neoplasm of breast; Translations: [ENC SCR MAMMO MALIG NEOPLASM BREAST]Onset: 42-04-9066Yefpxlfq Other skin disorders (2 sources)Bilateral localized swelling of lower legs; Translations: [Localized swelling, mass and lump, lowerlimb, bilateral]52-41-8027EpvjqnamFivtv upper respiratory disease (20 sources)Allergic rhinitis; Translations: [Other allergic rhinitis]Onset: 519929-65-3816VprsdswTcxzgjndgo and visceral atherosclerosis (20 sources)Peripheral vascular disease, unspecified; Translations: [Peripheral vascular disease, unspecified]Onset: 111270-15-7766FjalqabSolxwfuem heart disease (20 sources)Pulmonary hypertension; Translations: [Pulmonary hypertension, unspecified]Onset: 434754-40-3956AgyzluwTmztotmn codes; unclassified (3 sources)Obstructive sleep apnea (adult) (pediatric); Translations: [OBSTRUCTIVE SLEEP APNEA]Onset: 37-82-7405ZqafxlxCaknkuhn codes; unclassified (20 sources)Obstructive sleep apnea syndrome; Translations: [Obstructive sleep apnea (adult) (pediatric)]Onset: 766393-37-2533McdzptfHktzontu codes; unclassified (1 source)Acquired absence of other specified parts of digestive tract; Translations: [ACQ ABSENCE OTH PART DIGESTV TRACT]Onset: 50-22-2901Rsjxvclh Residual codes; unclassified (1 source)Acquired absence of both cervix and uterus; Translations: [ACQUIRED ABSENCE BOTH CERVIX AND UTERUS]Onset: 61-83-0284EmbymsgeFlirpiqh codes; unclassified (1 source)Family history of malignant neoplasm of ovary; Translations: [FAM HX MALIGNANT NEOPLASM OVARY]Onset: 63-95-5299LpndylrjXmpnsxsd codes; unclassified (1 source)Family history of malignant neoplasm, unspecified; Translations: [FAM HX MALIGNANT NEOPLASM UNS]Onset: 59-80-7387MbdracklResklrbce-related disorders (20 sources)Nicotine dependence; Translations: [Nicotine dependence, unspecified, uncomplicated]Onset: 90-16-5687MtmdxnkTentzqs on above:Added secondary to documentation in Social History.Unclassified (1 source)QUALITY ASSURANCE QA LAB TECHNICIAN INJECT NONINSULN ANTIDIAB; Translations: [QUALITY ASSURANCE QA LAB TECHNICIAN INJECT NONINSULN ANTIDIAB]Onset: 93-82-4923Kfdwuszbqspe (3 sources)CONTACT W/AND (SUSP) EXPOS COVID-19; Translations: [CONTACT W/AND (SUSP) EXPOS COVID-19]Onset: 54-26-4000Mvuiygiejpsj (3 sources)LOW BACK PAIN, UNSPECIFIED; Translations: [LOW BACK PAIN, UNSPECIFIED]Onset: 51-91-7087Wnohoqyxrhlg (1 source)Obesity, class 3; Translations: [Obesity, class 3]Onset: 11-14-2023 Viral infection (1 source)COVID-19; Translations: [COVID-19]Onset: 09-29-2022 Past or Other Problems Problem ClassificationProblemDateDocumented DateEpisodic/ChronicAcquired foot deformities (1 source)Other deformities of toe(s) (acquired), left foot; Translations: [OTHER DEFORMITIES TOES ACQ LT FOOT]Onset: 86-50-3370Qdnqseqr Administrative/social admission (20 sources)Patient encounter status; Translations: [Dietary counseling and surveillance]Onset: 142195-37-7934EdoekpfxIurrqxcq of urinary tract (20 sources)Kidney stone; Translations: [Calculus of kidney]Onset: 02-06-2022 EpisodicE Codes: Natural/environment (1 source)Other and unspecified overexertion or strenuous movements or postures, initial encounter; Translations: [OTH AND UNS OVREXRT/STRN MVMT/POS INT]Onset: 57-61-5676SmqilpzkJmkpb of unknown origin (18 sources)Fever; Translations: [Fever, unspecified]Onset: 690360-96-2500 EpisodicGenitourinary symptoms and ill-defined conditions (20 sources)Proteinuria; Translations: [Proteinuria, unspecified]Onset: 02-06-2022 Resolved: 57-07-1898KaancdipEvjesqqr; including migraine (20 sources)Headache; Translations: [Headache disorder]Onset: 01-17-2024 61-72-0716LdsyehgdRptdgztzwictu and screening for infectious disease (20 sources)Encounter for screening for other infectious and parasitic diseases; Translations: [Anti-nuclear factor positive]Onset: 307664-20-5764Uugaxjaz Mood disorders (20 sources)Mood disorders; Translations: [DEPRESSION UNSPECIFIED]Onset: 354932-21-9056Pucnlyv (20 sources)Tinea unguium; Translations: [Candidiasis of vagina]Onset: 04-18-3016ElneqnfkGvkuepknvdo deficiencies (20 sources)Vitamin deficiency; Translations: [Vitamin deficiency, unspecified] Onset: 056243-45-6015CttzofunBrwrd aftercare (3 sources)continuous churn buttermaker (current) use of insulin; Translations: [FPC CURRENT USE OF INSULIN]Onset: 31-25-6038RnegbufhLsfjs aftercare (20 sources)Long-term current use of inhaled steroid; Translations: [snf (current) use of inhaled steroids]Onset: 846211-48-3832IdtygtdyUadwl and unspecified benign neoplasm (20 sources)Myelolipoma of adrenal gland; Translations: [Benign lipomatous neoplasm of other sites]Onset: 307916-62-3597GdktsqlkZcnvc connective tissue disease (4 sources)Other muscle spasm; Translations: [OTHER MUSCLE SPASM]Onset: 85-17-5313ZmgegehcDzdbh diseases of veins and lymphatics (20 sources)Vascular insufficiency; Translations: [Venous insufficiency (chronic) (peripheral)]Onset: 329471-62-5092TptusxeqPsaea diseases of veins and lymphatics (2 sources)Venous insufficiency (chronic) (peripheral); Translations: [Venous insufficiency (chronic) (peripheral)]Onset: 36-98-0509GlpiycsaWmomc hematologic conditions (1 source)Secondary polycythemiaOnset: 03-08-2022 Resolved: 66-58-1955RsxqprukYiiph nervous system disorders (20 sources)Reduced mobility; Translations: [Other abnormalities of gait and mobility]Onset: 417840-03-3845CysqgxgaPivwc non-traumatic joint disorders (1 source)Effusion, left knee; Translations: [EFFUSION LEFT KNEE]Onset: 93-09-0162IistbmorUkusf non-traumatic joint disorders (1 source)Pain in left knee; Translations: [PAIN IN LEFT KNEE]Onset: 07-26-2022 EpisodicOther non-traumatic joint disorders (20 sources)Pain in right knee; Translations: [Pain in joint, lower leg]Onset: 491658-40-0576IpsjlucaYyrjr nutritional; endocrine; and metabolic disorders (20 sources)Severe obesity; Translations: [Morbid (severe) obesity due to excess calories]Onset: 07-10-2023 Resolved: 846565-80-5529XlrtmusPxfrv nutritional; endocrine; and metabolic disorders (20 sources)Excess panniculus of abdomen; Translations: [Localized adiposity] Onset: 10-25-2017 Resolved: 621854-86-0927JzjlpuxGufrq skin disorders (1 source)Nail dystrophy; Translations: [NAIL DYSTROPHY]Onset: 09-01-2022 EpisodicOther skin disorders (1 source)Corns and callosities; Translations: [CORNS AND CALLOSITIES]Onset: 81-04-0085EmkxfazrXxauj skin disorders (1 source)Xerosis cutis; Translations: [XEROSIS CUTIS]Onset: 30-94-3220Mltyjqki Other skin disorders (20 sources)Hyperpigmentation of skin; Translations: [Disorder of pigmentation, unspecified]Onset: 979781-27-5511JnxwaibbJcioho media and related conditions (20 sources)Acute suppurative otitis media without spontaneous rupture of ear drum; Translations: [Acute suppurative otitis media without spontaneous rupture of ear drum, left ear]Onset: 01-17-2024 Resolved: 177431-44-4021JdxeopnrGqiellxpgn disorders (not diabetes) (20 sources)Acute pancreatitis without necrosis or infection, unspecified; Translations: [Pancreatitis]Onset: 156302-46-9652PaevtclnDddceoxna (except that caused by tuberculosis or sexually transmitted disease) (20 sources)Pneumonia; Translations: [Pneumonia, unspecified organism]Onset: 09-17-2023 Resolved: 469519-82-5160DwtqsgkpMkvfkiqz codes; unclassified (3 sources)Localized edema; Translations: [LOCALIZED EDEMA]Onset: 09-01-2022 EpisodicResidual codes; unclassified (20 sources)Edema; Translations: [Edema, unspecified]Onset: 07-10-2023 Resolved: 522097-16-9291AuydajsxTbuvcgjq codes; unclassified (20 sources)Bilateral lower limb edema; Translations: [Localized edema]Onset: 105023-95-9929VxssybrwUajejsqb codes; unclassified (20 sources)Insomnia; Translations: [Insomnia, unspecified]Onset: 09-17-2023 05-23-8854DabyizrtTkhymtjx codes; unclassified (20 sources)Tobacco user; Translations: [Tobacco use]Onset: 09-17-2023 Resolved: 882195-18-9241KirtvhhjBlzuoimn codes; unclassified (20 sources)Edema of lower extremity; Translations: [Localized edema]Onset: 09-17-2023 Resolved: 373940-87-1756FatdvtlkFzmk and subcutaneous tissue infections (20 sources)Cellulitis of right lower limb; Translations: [Cutaneous abscess of left axilla]Onset: 66-34-8816WwepozcoYkubzfispuj; intervertebral disc disorders; other back problems (20 sources)Lumbar radiculopathy; Translations: [Radiculopathy, lumbar region] Onset: 373355-10-4413KaafiszzJoztejx and strains (1 source)Strain of muscle, fascia and tendon of lower back, initial encounter; Translations: [STRAIN MUSC FASC TENDON LW BACK INT]Onset: 87-36-1182Kjunyegb Unclassified (1 source)CONTACT W/AND (SUSP) EXPOS COVID-19; Translations: [CONTACT W/AND (SUSP) EXPOS COVID-19]Onset: 82-76-2380Tlswnhxfcynr (1 source)LOW BACK PAIN, UNSPECIFIED; Translations: [LOW BACK PAIN, UNSPECIFIED] Onset: 13-98-9055Ndpjbuocxbmf (4 sources)Patient encounter inbbdy92-09-9134Lefyxtwtoidr (1 source)Obesity, class 3; Translations: [Obesity, class 3]Onset: 08-08-2024 Varicose veins of lower extremity (20 sources)Varicose veins of right lower extremity with ulcer of unspecified site; Translations: [Varicose veins of lower extremities with ulcer]Onset: 06-19-2024 Resolved: 797271-35-4931Awbnpjki Results Test NameValueInterpretationReference RangeFacilityReminderson 04-28-2025 RemindersReminders From: [...] ) Other: PROVIDER RELATED REMINDER:_ ( ) [employer] ( ) Call Pharmacy ( ) Call [...] unable to leave a message at this time.[facility] HospitalV[facility] Office/Clinic Noteon [phone] Office/Clinic NoteChief Complaint Leg ulcer History of Present Illness Mitzi was referred by her building supervisor for evaluation of PVD. She has had ulcers in the bilateral lower extremities above the ankle for about a year. She has been seen by wound care in [facility]. They are applying compression with [...] signed by Corinne Kellogg MD 04/23/25 11:56 [facility] Ankle Brachial Indiceson 90-42-1914BN Ankle Brachial IndicesPreliminary Technologist Report Ankle/brachial index study was performed. Please see below for information. Superintendent Power: Zayra Ag, RVS Radiologist Report BILATERAL LOWER [...] please contact our Vascular Rehabilitation Department at [phone]. Final Signed by: Jose F Casanova MD Signed (Electronic Signature): 04.17.2025 3:28 pm Transcribed by: Jose F Casanova MD Transcribed DT/TM: 04.17.2025 3:12 (If Report is Signed, Electronically Signed in Other Vendor System)Normal [facility] SystemBasophils Auto (Bld) [#/Vol]Ordered By: Flynn Urias on 72-05-7251Imvzqutuv (Bld) [#/Vol]0.1 10 3/uL0.0-0.1FMarietta Osteopathic ClinicBasophils/100 WBC Auto (Bld)Ordered By: Flynn Urias on 95-30-6508Vuludrbyg/100 WBC (Bld)0.6 %0.2-2.0[facility] Eosinophils/100 WBC Auto (Bld)Ordered By: Flynn Urias on 03-26-2025 Eosinophils/100 WBC (Bld)2.7 %0.9-7.0[facility] Erythrocyte distribution width Auto (RBC) [Ratio]Ordered By: Flynn Urias on 68-75-8727Kmoctkoiqmq distribution width (RBC) [Ratio]16.4 %High11.0-15.0 [facility] SystemGlomerular filtration rate (GFR) estimation in non- AmericanOrdered By: Flynn Urias on 82-35-0347XHU/1.73 sq M.predicted among non-blacks MDRD (S/P/Bld) [Vol rate/Area]mL/min/{1.73_m2}>=60 mL/min/1.73m 2FMarietta Osteopathic ClinicHematocrit Auto (Bld) [Volume fraction]Ordered By: Flynn Urias on 44-59-7122Giyufblgqj (Bld) [Volume fraction]52.5 %High36.0-48.0[facility] SystemHemoglobin [Mass/volume] in BloodOrdered By: Flynn Urias on 06-09-7899Gpqjtgeqez (Bld) [Mass/Vol]16.1 g/nDMheu47.0-16.0[facility] SystemLaboratory - Chemistry and Chemistry - challengeOrdered By: Flynn Urias on 03-26-2025 Albumin [Mass/Vol]2.8 g/dLLow3.4-5.0[facility] SystemCalcium [Mass/Vol]8.6 mg/dL8.5-10.1FMarietta Osteopathic ClinicChloride [Moles/Vol] 105 mmol/H92-513ZhzimyittHolzer Health SystemCO2 [Moles/Vol]31.5 mmol/L 21.0-32.0[facility] SystemCreatinine [Mass/Vol]0.69 mg/dL 0.55-1.02[facility] SystemGFR/1.73 sq M.predicted MDRD (S/P/Bld) [Vol rate/Area]mL/min/{1.73_m2}>=60 mL/min/1.73m 2FMarietta Osteopathic ClinicGlucose [Mass/Vol]147 mg/vWEbku39-764QnuseiabwHolzer Health System Potassium [Moles/Vol]4.2 mmol/L3.5-5.1FMarietta Memorial Hospitalodium [Moles/Vol]141 mmol/M495-522QjraynmbdHolzer Health SystemUrea nitrogen [Mass/Vol]15.0 mg/dL7.0-18.0[facility] SystemUrea nitrogen/Creatinine [Mass ratio]21.7 mg/mgHolzer Health System Laboratory - Hematology and Cell countsOrdered By: Flynn Urias on 03-26-2025 ESR (Bld) [Velocity]48 mm/hHigh<=30[facility] SystemImmature granulocytes/100 WBC (Bld)0.3 %0.0-0.5FMarietta Osteopathic Clinic Leukocytes [#/volume] corrected for nucleated erythrocytes in Blood by Automated counOrdered By: Flynn Urias on 17-75-4685HIT corrected for nucl RBC Auto (Bld) [#/Vol]10.0 10 3/uL4.0-11.0[facility] SystemLymphocytes Auto (Bld) [#/Vol]Ordered By: Flynn Urias on 13-10-4088Plfpjlovxci (Bld) [#/Vol]2.7 10 3/uL1.2-3.8[facility] SystemLymphocytes/100 WBC Auto (Bld)Ordered By: Flynn Urias on 03-24-3672Wvurjwgvoxv/100 WBC (Bld)27.2 % 20.5-60.0[facility] SystemMCH Auto (RBC) [Entitic mass]Ordered By: Flynn Urias on 61-92-7076JEY (RBC) [Entitic mass]27.2 pg26.7-34.0[facility] SystemMCHC Auto (RBC) [Mass/Vol]Ordered By: Flynn Urias on 01-95-7688EIIO (RBC) [Mass/Vol]30.7 g/dL29.9-35.2FMarietta Osteopathic ClinicMCV Auto (RBC) [Entitic vol]Ordered By: Flynn Urias on 76-60-9902NHA (RBC) [Entitic vol]88.7 fL81.0-99.0[facility] SystemMonocytes Auto (Bld) [#/Vol]Ordered By: Flynn Urias on 48-30-2745Bihitwspz (Bld) [#/Vol] 0.5 10 3/uL0.3-0.8[facility] SystemMonocytes/100 WBC Auto (Bld) Ordered By: Flynn Urias on 84-44-7074Btvkqukvo/100 WBC (Bld)5.2 %1.7-12.0 [facility] SystemNeutrophils Auto (Bld) [#/Vol]Ordered By: Flynn Urias on 00-67-2292Niryxsfjvuj (Bld) [#/Vol]6.4 10 3/uL1.4-6.5FMarietta Osteopathic ClinicNeutrophils/100 WBC Auto (Bld)Ordered By: Flynn Urias on 68-25-2902Thdkwrrklhc/100 WBC (Bld)64.0 %43.0-75.0[facility] SystemNo Panel InformationOrdered By: Flynn Urias on 72-57-9407E-Reactive Protein, Quantitative3.94 mg/dLHigh<=0.50[facility] Eosinophils # (Auto)0.3 10 3/uL0.0-0.7FMarietta Osteopathic ClinicImmature Granulocyte # (Auto)0.03 10 3/uL0.00-0.03[facility] Phosphorus Level3.5 mg/dL2.6-4.7FMarietta Osteopathic ClinicPlatelet mean volume Auto (Bld) [Entitic vol]Ordered By: Flynn Urias on 92-54-7087Rypobyys mean volume (Bld) [Entitic vol]12.8 fL9.5-13.5FMarietta Osteopathic Clinic Platelets Auto (Bld) [#/Vol]Ordered By: Flynn Urias on 47-12-2965Vsydgovkk (Bld) [#/Vol]146 10 3/nAHzq391-964RknqwfquhHolzer Health SystemRBC Auto (Bld) [#/Vol]Ordered By: Flynn Urias on 28-01-6971GDO (Bld) [#/Vol]5.92 10 6/uLHigh4.20-5.40[facility] Medical Centererum or plasma anion gap determinationOrdered By: Flynn Urias on 70-88-6821Amzht gap [Moles/Vol]8.7 mmol/LFMarietta Osteopathic ClinicBasophils Auto (Bld) [#/Vol]Ordered By: Price Arora on 00-31-7225Zushrkpzi (Bld) [#/Vol]0.1 10 3/uL0.0-0.1FMarietta Osteopathic ClinicBasophils/100 WBC Auto (Bld)Ordered By: Price Arora on 34-99-9464Vssmefhew/100 WBC (Bld)0.4 %0.2-2.0[facility] Eosinophils/100 WBC Auto (Bld)Ordered By: Price Arora on 03-25-2025 Eosinophils/100 WBC (Bld)2.4 %0.9-7.0[facility] Erythrocyte distribution width Auto (RBC) [Ratio]Ordered By: Price Arora on 65-88-6869Pjhhnbrglyj distribution width (RBC) [Ratio]16.4 %High11.0-15.0 [facility] SystemGlomerular filtration rate (GFR) estimation in non- AmericanOrdered By: Price Arora on 88-30-5299IIG/1.73 sq M.predicted among non-blacks MDRD (S/P/Bld) [Vol rate/Area]mL/min/{1.73_m2}>=60 mL/min/1.73m 2FMarietta Osteopathic ClinicHematocrit Auto (Bld) [Volume fraction]Ordered By: Price Arora on 26-05-2295Khvavsxtsr (Bld) [Volume fraction]56.6 %High36.0-48.0[facility] SystemHemoglobin [Mass/volume] in BloodOrdered By: Price Arora on 15-16-1634Jocqblvkpc (Bld) [Mass/Vol]17.4 g/vSWzgp45.0-16.0[facility] SystemLaboratory - Chemistry and Chemistry - challengeOrdered By: Price Arora on 03-25-2025 Bilirubin Ql (U)NegativeNEGATIVEHolzer Health SystemGlucose (U) [Mass/Vol]NegativeNEGATIVEHolzer Health SystemKetones Ql (U) NegativeNEGATIVEHolzer Health SystempH (U)8.0 [pH]5.0-9.0[facility] Centerpecific gravity (U) [Rel density]1.0201.005-1.025 [facility] SystemUrobilinogen Qn (U)1.0 {Little'U}/dL0.2-1.0 [facility] SystemCalcium [Mass/Vol]9.2 mg/dL8.5-10.1FMarietta Osteopathic ClinicChloride [Moles/Vol]106 mmol/K17-137WmyppzfuaHolzer Health SystemCO2 [Moles/Vol]36.9 mmol/LHigh21.0-32.0[facility] SystemCreatinine [Mass/Vol]0.86 mg/dL0.55-1.02[facility] GFR/1.73 sq M.predicted MDRD (S/P/Bld) [Vol rate/Area]mL/min/{1.73_m2}>=60 mL/min/1.73m 2FMarietta Osteopathic ClinicGlucose [Mass/Vol]164 mg/dLHigh 74-106[facility] SystemPotassium [Moles/Vol]4.0 mmol/L3.5-5.1 [facility] Centerodium [Moles/Vol]144 mmol/U715-921YxoibdyoaHolzer Health SystemUrea nitrogen [Mass/Vol]14.0 mg/dL7.0-18.0[facility] SystemUrea nitrogen/Creatinine [Mass ratio]16.3 mg/mgHolzer Health SystemLaboratory - Hematology and Cell countsOrdered By: Price Arora on 81-44-9785Nhevsgbb granulocytes/100 WBC (Bld)0.3 %0.0-0.5 [facility] SystemLaboratory - Specimen informationOrdered By: Price Arora on 58-80-8757Gxqqogcovg (U)CLEARCLEARFMarietta Osteopathic ClinicColor (U)LT. YELLOWYELLOWHolzer Health SystemLaboratory - UrinalysisOrdered By: Price Arora on 27-83-6918Sopyuzi casts LM Ql (Urine sed) RAREHolzer Health SystemLeukocyte esterase Test strip Ql (U) NegativeNEGATIVEHolzer Health SystemMucus Ql (Urine sed)TRACE AbnormalNONE SEENHolzer Health SystemNitrite Ql (U)NegativeNEGATIVE [facility] SystemProtein Ql (U)100 mg/dLAbnormalNEG/TRACE [facility] SystemLeukocytes [#/volume] corrected for nucleated erythrocytes in Blood by Automated counOrdered By: Price Arora on 03-25-2025 WBC corrected for nucl RBC Auto (Bld) [#/Vol]11.8 10 3/uLHigh4.0-11.0[facility] SystemLymphocytes Auto (Bld) [#/Vol]Ordered By: Price Arora on 44-83-5946Pfolpktsljs (Bld) [#/Vol]3.1 10 3/uL1.2-3.8[facility] SystemLymphocytes/100 WBC Auto (Bld)Ordered By: Price Arora on 55-36-3122Zvmobaohynu/100 WBC (Bld)26.4 %20.5-60.0[facility] Auto (RBC) [Entitic mass]Ordered By: Price Arora on 63-99-8739ZYO (RBC) [Entitic mass]27.5 pg26.7-34.0[facility] HospitalHC Auto (RBC) [Mass/Vol]Ordered By: Price Arora on 42-55-6832JXGF (RBC) [Mass/Vol]30.7 g/dL29.9-35.2[facility] CenterMCV Auto (RBC) [Entitic vol] Ordered By: Price Arora on 86-81-3992GNV (RBC) [Entitic vol]89.4 fL81.0-99.0 [facility] SystemMonocytes Auto (Bld) [#/Vol]Ordered By: Price Arora on 19-97-7039Mumeacoxx (Bld) [#/Vol]0.6 10 3/uL0.3-0.8[facility] SystemMonocytes/100 WBC Auto (Bld)Ordered By: Price Arora on 92-99-1663Prcvhzhuj/100 WBC (Bld)5.2 %1.7-12.0[facility] Neutrophils Auto (Bld) [#/Vol]Ordered By: Price Arora on 83-28-8405Pzqzambeujr (Bld) [#/Vol]7.7 10 3/uLHigh1.4-6.5FMarietta Osteopathic Clinic Neutrophils/100 WBC Auto (Bld)Ordered By: Price Arora on 03-25-2025 Neutrophils/100 WBC (Bld)65.3 %43.0-75.0[facility] SystemNo Panel InformationOrdered By: Price Arora on 00-07-6971Xcruf BacteriaTRACE #/HPFAbnormalNONE [facility] CenterUrine Culture ReflexedNO [facility] SystemUrine Occult BloodNegativeNEGATIVEHolzer Health SystemUrine Other CastsSEEN #/LPFAbnormalNONE [facility] CenterUrine Other CrystalsNone Seen #/HPFNone [facility] HealthUrine RBC0-2 #/HPF0-2FMarietta Osteopathic Clinic Urine Squamous Epithelial CellsFEW #/LPFAbnormalNONE/RAREHolzer Health SystemUrine WBC0-2 #/HPFAbnormalNONE [facility] CenterEosinophils # (Auto)0.3 10 3/uL0.0-0.7FMarietta Osteopathic Clinic Immature Granulocyte # (Auto)0.04 10 3/uLHigh0.00-0.03[facility] SystemPlatelet mean volume Auto (Bld) [Entitic vol]Ordered By: Price Arora on 55-88-4670Gbjbquat mean volume (Bld) [Entitic vol]12.4 fL9.5-13.5FMarietta Osteopathic ClinicPlatelets Auto (Bld) [#/Vol]Ordered By: Price Arora on 64-85-2745Ctcaytqit (Bld) [#/Vol]160 10 3/eW869-833LavabvcovHolzer Health SystemRBC Auto (Bld) [#/Vol]Ordered By: Price Arora on 51-08-0372FWJ (Bld) [#/Vol]6.33 10 6/uLHigh4.20-5.40[facility] Centererum or plasma anion gap determinationOrdered By: Price Arora on 98-71-7356Uqtlm gap [Moles/Vol]5.1 mmol/LFMarietta Osteopathic ClinicVascular Office/Clinic Noteon 81-78-9929Pyqkaiga Office/Clinic NoteChief Complaint lle wound History of [...] She has had testing done at the [facility] last year which she brought with her, [...] at least moderate PAD bilaterally. Recommended repeat IASBELLE testing and then follow-up with Dr. Alatorre, [...] by Omero Santana 03/23/25 12:01 [facility] HospitalPodiatry Office/Clinic Noteon 88-31-5063Pbrxutlg Office/Clinic NoteThe content of this note was [...] wraps (gauze, tila bandage, Coban II, tuba canceling machine operator), Dakins solution, a 40-daycourse of antibiotics, and [...] other blood thinners. The patient resides in [place]. Review of Systems Constitutional: Negative for signs [...] their lower extremities Positi (more content not included)...NormalAcmc Healthcare SystemComment on above:Order Comment: Missing Attachment [id number] Can be viewed in source systemXR Tibia/Fibula Righton 82-09-9234EU Tibia/Fibula Right2 views right tib- fib demonstrate: [...] Signed, Electronically Signed in Other Vendor System)Normal [facility]c Healthcare SystemResults Follow-Upon 03-57-1802Vbyjowf Follow-Up [id number] Mitzi Macias 1970 F Date Provider Department Center 02/04/2025 166-AMI ORO CARDIOLOGY None Family History Problem Relation Age of Onset Heart attack Paternal Grandmother Family Status - Relation Status Age at Mother Father Paternal GrandmotherNOhioHealth Grant Medical CenterOrders Onlyon 69-46-1048Cooleg [id number] Mitzi Macias 1970 F Date Provider Department Center 01/30/2025 [id number], [facility] Family History Problem Relation Age of Onset Heart attack Paternal Grandmother Family Status - Relation Status Age at Mother Father Paternal GrandmoSelect Medical Cleveland Clinic [facility], AvonCA ECHO DOPPLER COMPLETEon 09-68-7702YvkH[place] [address] Cardiology Report Signed Patient: MITZI MACIAS MR#: [id number] : 1970 Acct:[id number] Age/Sex: 54 / F ADM Date: 01/29/25 Loc: CARD Attending Dr: AMI ORO APRN Ordering Physician: AMI ORO APRN Date of Service: 01/29/25 Procedure(s): CA echo doppler complete Accession Number(s): [id number] cc: Mckayla Blas PARI MUTUEL CLERK; AMI ORO APRN Patient Name: MITZI MACIAS MR#: [id number] : 1970 Exam Date: 01/29/2025 Ordering Doctor: AMI ORO PIG FURNACE OPERATOR ECHOCARDIOGRAM REPORT PROCEDURE: CA ECHO DOPPLER [...] HERRERA Signed By: 01/29/251839 DD/ 39 TD/TT: Rf Manager:SONNYHRadiology, Radiologist, - 01/29/2025 [place] [address] Cardiology Report Signed Patient: MITZI MACIAS MR#: [id number] : 1970 Acct:[id number] Age/Sex: 54 / F ADM Date: 01/29/25 Loc: CARD Attending Dr: AMI ORO APRN Ordering Physician: AMI ORO APRN Date of Service: 01/29/25 Procedure(s): CA echo doppler complete Accession Number(s): [id number] cc: Mckayla Blas PARI MUTUEL CLERK; AMI ORO APRN Patient Name: MITZI MACIAS MR#: [id number] : 1970 Exam Date: 01/29/2025 Ordering Doctor: [...] HERRERA Signed By: 01/29/251839 DD/ 39 TD/TT: Rf Manager: CARLOS HealthcareRadiology Study observation (narrative)[facility] ECHO DOPPLER COMPLETEOrdered By: Radiologist Radiology on 51-46-5899SZXW Healthcare Work Phone: Glucose (Bld) [Mass/Vol]on 17-38-4279Edapkrn Blood, QPG921 mg/dLNONE HealthcareLaboratory - Hematology and Cell countson 01-29-2025 HbA1c (Bld) [Mass fraction]8.4 %NOMS HealthcareNo Panel Informationon 01-29-2025 Interpretation and review of laboratory resultsAbnormalNOMS HealthcareNOMS HealthcareOffice Visiton 90-72-1037Ezcguo-up [id number] Mitzi Macias 1970 F Date Provider Department Center 01/06/2025 AMI SARABIA CARD [place] [facility] Family History Problem Relation Age of Onset Heart attack Paternal Grandmother Family Status - Relation Status Age at Mother Father Paternal Grandmother Level of Service:25892 NE OFFICE/OUTPATIENT ESTABLISHED MOD MDM 30 MIN Reason for Visit and Comments: Congestive Heart Failure [127] Hypertension [433759] Hyperlipidemia [182]NormalBrown Memorial Hospital36on Regarding lab results from 10/08/2024: MD Mickie Merritt MA Lipids, ALT AST, and BMP are normal. HbA1c was not performed. Continue current management. LM on patient's VM.NormalBrown Memorial HospitalGlucose (Bld) [Mass/Vol]Ordered By: Mica Sauceda on 76-14-6033Ybukbrv Blood, POC97 mg/dLNONE HealthcareLaboratory - Hematology and Cell countson 78-28-7213JbX0m (Bld) [Mass fraction]7.4 %NOMS HealthcareNo Panel InformationOrdered By: Mica Sauceda on 71-74-9456GYDC HealthcareTBH UA (CLEAN/CATCH) MICROSCOPIC IF INDICATEon 00-60-6432NYOJSKEDD URINENegativeNEGATIVENOMS HealthcareBLOOD URINENegative NEGATIVENOMS HealthcareClarity (U)CLEARCLEARNOMS HealthcareColor (U)YELLOWYELLOW NOMS HealthcareGLUCOSE URINE UANegativeNEGATIVE mg/dLNOMS Healthcare Interpretation and review of laboratory resultsAbnormalNOMS HealthcareKetones Ql (U)NegativeNEGATIVE mg/dLNOMS HealthcareLeukocyte esterase Test strip Ql (U) NegativeNEGATIVENOMS HealthcareNITRITE URINENegativeNEGATIVENOMS HealthcarepH (U)5.5 [pH]5.0 - 9.0NOMS HealthcareProtein (U) [Mass/Vol]30 mg/dLAbnormal NEG/TRACENOMS HealthcareSPECIFIC GRAVITY URINE>=1.075Umbkxvea3.005 - 1.025NONE HealthcareURINE MICROSCOPIC INDICATEDYESNONE HealthcareUROBILINOGEN URINE1.0 EU/dL0.2 - 1.0 EU/dLNONE HealthcareCLINISYNCNOMS HealthcareALL CBC WITH AUTO DIFFon 72-91-5298XZIQOWHFE ABSOLUTE AUTO0.1NOMS HealthcareBasophils/100 WBC (Bld)0.5 %0.2 - 2.0 %NOMS HealthcareEosinophils/100 WBC (Bld)1.9 %0.9 - 7.0 % NOMS HealthcareErythrocyte distribution width (RBC) [Ratio]14.6 %11.0 - 15.0 % NOM HealthcareHematocrit (Bld) [Volume fraction]50.9 %High36.0 - 48.0 %NOM HealthcareHemoglobin (Bld) [Mass/Vol]16.1 g/rXBrna09.0 - 16.0 g/dLSSM RehabIMMATURE GRANULOCYTES ABS AUTO0.04HighNOKindred HospitalImmature granulocytes/100 WBC (Bld)0.3 %0.0 - 0.5 %[facility] HealthcareInterpretation and review of laboratory resultsAbnormalNONE HealthcareLYMPHOCYTES ABSOLUTE AUTO3.2 NOMHca Midwest DivisionLymphocytes/100 WBC (Bld)25.1 %20.5 - 60.0 %Cox SouthH (RBC) [Entitic mass]29.2 pg26.7 - 34.0 pgNOMoberly Regional Medical CenterHC (RBC) [Mass/Vol] 31.6 g/dL29.9 - 35.2 g/dLCox SouthV (RBC) [Entitic vol]92.2 fL81.0 - 99.0 fLSSM RehabMONOCYTES ABSOLUTE AUTO0.7NONE HealthcareMonocytes/100 WBC (Bld)5.2 %1.7 - 12.0 %NOM HealthcareNEUTROPHILS ABSOLUTE AUTO8.6HighSSM RehabNeutrophils/100 WBC (Bld)67 %43.0 - 75.0 %SSM RehabPlatelet mean volume (Bld) [Entitic vol]12.8 fL9.5 - 13.5 fLSSM RehabTBH EO #0.2NOMS HealthcareGAEBLER CHILDR[facility] OWE761JwnMYBJCoxHealth RBC5.52HighNONE HealthcareGAEBLER CHILDR[facility] WBC12.8 Excela HealthCLINISYNCNOMS HealthcareOffice Visiton 62-40-0002Nbiiho-up [id number] Mitzi Macias 1970 F Date Provider Department Center 08/08/2024 [id number]-CZIQOKDAKOTAH [facility] Family History Problem Relation Age of Onset Heart attack Paternal Grandmother Family Status - Relation Status Age at Paternal Grandmother Level of Service:28825 NE OFFICE/OUTPATIENT ESTABLISHED MOD MDM 30 MIN Reason for Visit and Comments: Congestive Heart Failure [127] - Denies chest pain, SOB, and palpitations. Hypertension [665146] Hyperlipidemia [182] LVH [Other] Edema [[id number]] - Denies worsening edema. She sees wound care for RLE ulcer. She was seeing the vein specialists here in town but they are moving to [place] in a few weeks.NormalBrown Memorial HospitalProvider Letteron 34-53-1399Tfdadtko LetterProvider Letter June 11, 2024 MITZI MACIAS [address] [place] [id number] : 1970 To Whom It May Concern, Please excuse above patient from work. Date of Illness: From: 06/11/24 8:30am To: 06/11/24 12:30pm Comments: _Brian Macias was with his for her doctor's appointment. Sincerely, Andra Forrester, Surgical SchedulerNormSelect Medical Specialty Hospital - CantonUrology Office/Clinic Noteon 93-63-8022Sjujgpi Office/Clinic NoteUrology Office/Clinic Note Chief Complaint 18 mth HPI Staff 53 yo here 18 month f/u CT for adrenal mass. CT SCAN 05/12/24-[facility] Previous DX: adrenal mass, kidney stone, left [...] Urology [address], [place] [address]- Additional Instructions: [address] AP [...] TIDAC potassium chloride 10 (more content not included)...[facility]. Ruby Memorial HospitalComment on above:Result Comment: Electronically Signed By: Elbert ARAUZ MD\.br\Date and Time Signed: 06/11/24 10:55 EST\.br\Electronically Co- Signed By: Maria Elena Negrete\.br\Date and Time Co-Signed: 06/11/24 10:53 EST Glucose (Bld) [Mass/Vol]Ordered By: Mica Sauceda on 55-14-0065Uqsjyaw Blood, MNU251 mg/dLNONE HealthcareLaboratory - Hematology and Cell countson 05-27-2024 HbA1c (Bld) [Mass fraction]9.2 %[facility] HealthcareNo Panel InformationOrdered By: Mica Sauceda on 41-81-7382FLRB HealthcareCT ABDOMEN PELVIS W CONon 05-12-2024 [place] [address] CT Scan Report Signed Patient: MITZI MACIAS MR#: [id number] : 1970 Acct:[id number] Age/Sex: 53 / F ADM Date: 05/12/24 Loc: CT Attending Dr: Gaviota MAYERS Ordering Physician: Gaviota Adames Date of Service: 05/12/24 Procedure(s): CT abdomen pelvis w con Accession Number(s): [id number] cc: Mckayla Blas NP [place] [id number] Patient Name: MITZI MACIAS MRN: TBH:[id number] date: 1970 Sex: F Assigned Patient Location: CT Current Patient Location: Accession/Order Number: [id number] Exam Date: 05/12/2024 11:15 Report Date: 05/12/2024 [...] Signed By: 05/12/24 1419 DD/ 1416 TD/TT: Rf Manager:TBHRadiology, Radiologist, MD - 05/12/2024 [place] [address] CT Scan Report Signed Patient: MITZI MACIAS MR#: [id number] : 1970 Acct:[id number] Age/Sex: 53 / F ADM Date: 05/12/24 Loc: CT Attending Dr: Gaviota MAYERS Ordering Physician: Gaviota Adames Date of Service: 05/12/24 Procedure(s): CT abdomen pelvis w con Accession Number(s): [id number] cc: Mckayla Blas NP [place] [id number] Patient Name: MITZI MACIAS MRN: TBH:[id number] date: 1970 Sex: F Assigned Patient Location: CT Current Patient Location: Accession/Order Number: [id number] Exam Date: 05/12/2024 11:15 Report Date: 05/12/2024 [...] Signed By: 05/12/24 1419 DD/ 15 TD/TT: Rf Manager: CARLOS HealthcareRadiology Study observation (narrative)[facility] HealthcareCT ABDOMEN PELVIS W CONOrdered By: Radiologist Radiology on 69-31-8988SHQR MediaV Work Phone: MR LUMBAR SPINE WO CONon 66-89-6605NwdH[place] [address] Magnetic Resonance Report Signed Patient: MITZI MACIAS MR#: [id number] : 1970 Acct:[id number] Age/Sex: 53 / F ADM Date: 05/12/24 Loc: MRI Attending Dr: Celestina Cochran NP Ordering Physician: Celestina Cochran NP Date of Service: 05/12/24 Procedure(s): MR lumbar spine wo con Accession Number(s): [id number] cc: Mckayla Blas NP; Celestina Cochran NP [place] [address] Patient Name: MITZI MACIAS MRN: TBH:[id number] date: 1970 Sex: F Assigned Patient Location: MRI Current Patient Location: CT Accession/Order Number: [id number] Exam Date: 05/12/2024 09:21 Report Date: 05/12/2024 [...] Signed By: 05/12/24 1443 DD/ 1441 TD/TT: Rf Manager:TBHRadiology, Radiologist, - 05/12/2024 [place] [address] Magnetic Resonance Report Signed Patient: MITZI MACIAS MR#: [id number] : 1970 Acct:[id number] Age/Sex: 53 / F ADM Date: 05/12/24 Loc: MRI Attending Dr: Celestina Cochran NP Ordering Physician: Celestina Cochran NP Date of Service: 05/12/24 Procedure(s): MR lumbar spine wo con Accession Number(s): [id number] cc: Mckayla Blas NP; Celestina Cochran NP [address] [address] Patient Name: MITZI MACIAS MRN: [facility]:[id number] date: 1970 Sex: F Assigned Patient Location: MRI Current Patient Location: CT Accession/Order Number: [id number] Exam Date: 05/12/2024 09:21 Report Date: 05/12/2024 [...] Signed By: 05/12/24 1443 DD/ 1441 TD/TT: Rf Manager: CARLOS HealthcareRadiology Study observation (narrative)[facility] LUMBAR SPINE WO CONOrdered By: Radiologist Radiology on 84-49-9982YUGT Healthcare Work Phone: TB CREATININEon 06-96-3264Sdrdmvhmbj [Mass/Vol]0.92 mg/dL0.55 - 1.02 mg/dLNONE HealthcareGFR/1.73 sq M.predicted CKD-EPI (S/P/Bld) [Vol rate/Area]>60>=60 mL/min/1.73m 2NOMS HealthcareTBH EGFR-NON AF BOTSWANAN>60 >=60 mL/min/1.73m 2NOMS HealthcareCLINISYNCNNORMAN SPECIALTY HOSPITAL [facility] NOR[facility] HealthcareSEGMENTAL BLOOD PRESSUREon 29-46-6515JmmH[place] [address] Vein Report Signed Patient: MITZI MACIAS MR#: [id number] : 1970 Acct:[id number] Age/Sex: 53 / F ADM Date: 04/24/24 Loc: VC Attending Dr: Comfort Pretty Ordering Physician: Comfort Pretty Date of Service: 04/24/24 Procedure(s): VC SEGMENTAL PRESSURES Accession Number(s): [id number] cc: Mckayla Blas NP; Comfort Pretty [place] [id number] Patient Name: MITZI MACIAS MRN: [id number] date: 1970 Sex: F Assigned Patient Location: Current Patient Location: Accession/Order Number: [id number] Exam Date: 04/24/2024 10:25 Report Date: 04/24/2024 11:20 At the request of: COMFORT PRETTY Procedure: VC SEGMENTAL PRESSURES EXAM: VC SEGMENTAL PRESSURES HISTORY: R09.89 COMPARISON: None. FINDINGS: Segmental pressures presented as follows (right, left) in mmHg. 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 OPERATOR: 100, 91 1st Toe: 124, [...] Signed By: 04/24/24 1123 DD/ 1120 TD/TT: Rf Manager:TBHRadiology, Radiologist, - 04/24/2024 [place] [address] Vein Report Signed Patient: MITZI MACIAS MR#: [id number] : 1970 Acct:[id number] Age/Sex: 53 / F ADM Date: 04/24/24 Loc: VC Attending Dr: Comfort Pretty Ordering Physician: Comfort Pretty Date of Service: 04/24/24 Procedure(s): VC SEGMENTAL PRESSURES Accession Number(s): [id number] cc: Mckayla Blas NP; Comfort Pretty [place] [id number] Patient Name: MITZI MACIAS MRN: [facility]:[id number] date: 1970 Sex: F Assigned Patient Location: Current Patient Location: VC Accession/Order Number: [id number] Exam Date: 04/24/2024 10:25 Report Date: 04/24/2024 11:20 At the request of: COMFORT PRETTY Procedure: VC SEGMENTAL PRESSURES EXAM: VC SEGMENTAL PRESSURES HISTORY: R09.89 COMPARISON: None. FINDINGS: Segmental pressures presented as follows (right, left) in mmHg. 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 OPERATOR: 100, 91 1st Toe: 124, [...] Signed By: 04/24/24 1123 DD/ 1120 TD/TT: Rf Manager: CARLOS HealthcareRadiology Study observation (narrative)NOMS HealthcareSEGMENTAL BLOOD PRESSUREOrdered By: Radiologist Radiology on 76-64-6278EUDB MediaV Work Phone: mm TOMOSYNTHESIS SCREENING BIon 07-55-3869GinH[place] [address] Mammography Report Signed Patient: MITZI MACIAS MR#: [id number] : 1970 Acct:[id number] Age/Sex: 53 / F ADM Date: 12/13/23 Loc: MAMMO Attending Dr: Mckayla Blas NP Ordering Physician: Mckayla Blas NP Results: Date of Service: 12/13/23 Follow Up: Procedure(s): MM tomosynthesis screening BI Accession Number(s): [id number] cc: Mckayla Blas NP Patient Name: MITZI MACIAS MR#: [id number] : 1970 Exam Date: 12/13/2023 Ordering Doctor: [...] unknown cancer at age 75. LOCATION: [facility] BREAST COMPOSITION: The breasts are [...] Signed By: 12/14/23 1122 DD/ 1121 TD/TT: Rf Manager:TBHRadiology, Radiologist, MD - 12/14/2023 [place] [address] Mammography Report Signed Patient: MITZI MACIAS MR#: [id number] : 1970 Acct:[id number] Age/Sex: 53 / F ADM Date: 12/13/23 Loc: MAMMO Attending Dr: Mckayla Blas NP Ordering Physician: Mckayla Blas NP Results: Date of Service: 12/13/23 Follow Up: Procedure(s): MM tomosynthesis screening BI Accession Number(s): [id number] cc: Mckayla Blas NP Patient Name: MITZI MACIAS MR#: [id number] : 1970 Exam Date: 12/13/2023 Ordering Doctor: [...] unknown cancer at age 75. LOCATION: [facility] BREAST COMPOSITION: The breasts are [...] Signed By: 12/14/23 1122 DD/ 1121 TD/TT: Rf Manager: [facility] RehabRadiology Study observation (narrative)[facility] TOMOSYNTHESIS SCREENING BIOrdered By: Radiologist Radiology on 31-70-7383AWFISSM Rehab Work Phone: bLOOD CULTURE 1on 05-34-4296DCFXU CULTURE 1 Blood Culture 1 NG5D NO GROWTH AT 5 DAYS.^NO GROWTH AT [address] [facility] HealthcareBLOOD CULTURE 2on 47-02-8115AAKBQ CULTURE 2 Blood Culture 2 NG5D NO GROWTH AT 5 DAYS.^NO GROWTH AT 5 DAYS. SSM RehabNo Panel Informationon 57-29-4430AAXPDWIHXBGOC HealthcareECG 12-LEADon 86-31-1472Jtd [address] [address] Electrocardiograph Report Signed Patient: MITZI MACIAS MR#: [id number] : 1970 Acct:[id number] Age/Sex: 53 / F ADM Date: 08/31/23 Loc: MS 214-[address]: Jacqueline Becerra D.O. 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 Signed By: 09/02/23 0732 DD/ 1808 TD/TT: Rf Manager:TBHRadiology, Radiologist, - 09/02/2023 [place] [address] Electrocardiograph Report Signed Patient: MITZI MACIAS MR#: [id number] : 1970 Acct:[id number] Age/Sex: 53 / F ADM Date: 08/31/23 Loc: [place] 214-[address]: Jacqueline Becerra D.O. 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 Signed By: 09/02/23 0732 DD/ 1808 TD/TT: Rf Manager: CARLOS [facility] 12-LEADOrdered By: Radiologist Radiology on [id number] Media[employer] Work Phone: ECG 12-LEADon [id number] Study observation (narrative)[facility]OSPITALHenna Chillicothe HospitalCBC AUTO DIFFon [id number] #0.0 103/ulNormal 0.0-0.1The Memorial Health SystemComment on above:Performed By: #### CBC #### [facility] [address] [place] [address] Dr. Ashlie HillsBasophils/100 WBC (Bld)0.1 %Critically low0.2-2.0The Memorial Health SystemComment on above:Performed By: #### CBC #### [facility] [address] [place] [address] Dr. Ashlie Mcintosh #0.0 103/ulNormal0.0-0.7The Memorial Health SystemComment on above: Performed By: #### CBC #### [facility] [address] [place] [address] Dr. Ashlie Grahamosinophils/100 WBC (Bld)0.0 %Critically low0.9-7.0The [facility] Health SystemComment on above:Performed By: #### CBC #### [facility] [address] [place] [address] Dr. Ashlie Grahamrythrocyte distribution width (RBC) [Ratio]14.9 %Rdqajo11.0-15.0 The [facility] Health SystemComment on above:Performed By: #### CBC #### [facility] [address] [place] [address] Dr. Yilan ChangHematocrit (Bld) [Volume fraction]46.2 %Vrseej26.0-48.0The [facility] SystemComment on above:Performed By: #### CBC #### [facility] [address] [place] [address] Dr. Ashlie HillsHemoglobin (Bld) [Mass/Vol]14.7 g/yLJgtrku45.0-16.0The [facility]alyer HospitalComment on above:Performed By: #### CBC #### [facility] [address] [place] [address] Dr. Ashlie HillsIG #0.06 10e3/ulCritically high0.00-0.03The [facility] Comment on above:Performed By: #### CBC #### [facility] [address] [place] [address] Dr. Ashlie HillsIG %0.4 %Normal0.0-0.5The [facility] Health SystemComment on above: Performed By: #### CBC #### [facility] [address] [place] [address] Dr. Ashlie Swenson #1.3 103/ulNormal1.2-3.8The [facility] Health SystemComment on above:Performed By: #### CBC #### [facility] [address] [place] [address] Dr. Ashlie Jademphocytes/100 WBC (Bld)9.4 %Critically low20.5-60.0The [facility] SystemComment on above:Performed By: #### CBC #### [facility] [address] [place] [address] Dr. Ashlie HillsMANUAL DIFF REQNONormalThe Memorial Health SystemComment on above: Performed By: #### CBC #### [facility] [address] [place] [address] Dr. Ashlie Granger (RBC) [Entitic mass]28.4 ynYmvwwb26.7-34.0The [facility] Health SystemComment on above:Performed By: #### CBC #### [facility] [address] [place] [address] Dr. Ashlie Mckeon (RBC) [Mass/Vol]31.8 g/cYMppcfl96.9-35.2The [facility] Health SystemComment on above:Performed By: #### CBC #### [facility] [address] [address] [address] Ashlie MckeonV (RBC) [Entitic vol]89.4 hQNmvknk92.0-99.0The [facility] SystemComment on above:Performed By: #### CBC #### [facility] [address] [address] [address] Ashlie Killian #0.5 103/ulNormal0.3-0.8The [facility] Health SystemComment on above:Performed By: #### CBC #### [facility] [address] [address] [address] Ashlie Palominoocytes/100 WBC (Bld)3.4 %Normal1.7-12.0[facility] Comment on above:Performed By: #### CBC #### [facility] [address] [address] [address] Ashlie Olsen #11.8 103/ulCritically high1.4-6.5The [facility] Comment on above:Performed By: #### CBC #### [facility] [address] [place] [address] Dr. Ashlie Steinutrophils/100 WBC (Bld)86.7 %Critically high43.0-75.0The [facility] Health SystemComment on above:Performed By: #### CBC #### [facility] [address] [address] [address] Ashlie Lantigualet mean volume (Bld) [Entitic vol]12.6 fLNormal9.5-13.5The [facility] Health SystemComment on above:Performed By: #### CBC #### [facility] [address] [address] [address] Ashlie HillsPLT133 103/ulCritically pga622-660Zyg Memorial [facility] SystemComment on above:Performed By: #### CBC #### [facility] [address] [address] [address] Ashlie HillsRBC5.17 106/ulNormal4.20-5.40The [facility] SystemComment on above:Performed By: #### CBC #### [facility] [address] [place] [address] Dr. Ashlie HillsWBC13.6 103/ulCritically high4.0-11.0The [facility] SystemComment on above:Performed By: #### CBC #### [facility] [address] [place] [address] Dr. Ashlie HillsMAGNESIUMon 66-03-7119Qwoyxfpcm [Mass/Vol]2.2 mg/dLNormal1.8-2.4 The [facility] SystemComcorewell health [facility] on above:Performed By: #### INFLUAB #### [facility] [address] [place] [address] Dr. Ashlie HillsPOINT OF CARE GLUCOSEon 08-95-7067Hzrsfai [Mass/Vol]340 mg/dL Critically kobl86-217Ldf [facility] SystemComment on above:Performed By: #### POCGLUC #### [facility] [address] [place] [address] Dr. Ashlie HillsGlucose [Mass/Vol]276 mg/dLCritically skve15-992Hpb [facility] SystemComment on above:Performed By: #### CBC #### [facility] [address] [place] [address] Dr. Ashlie HillsGlucose [Mass/Vol]333 mg/dLCritically grkg52-829Dqp [facility] SystemComment on above:Performed By: #### CBC #### [facility] [address] [place] [address] Dr. Ashlie HillsPROF CHEM 8 (BAS METB)on 67-22-4556Fdyqy gap [Moles/Vol]10.9 mmol/LNormalTrinity Health System [facility] City Medical CenterComment on above:Performed By: #### INFLUAB #### [facility] [address] [place] [address] Dr. Ashlie HillsCalcium [Mass/Vol]9.3 mg/dLNormal8.5-10.1[facility] Comment on above:Performed By: #### INFLUAB #### [facility] [address] [address] [address] Ashlie HillsChloride [Moles/Vol]103 mmol/HPmbzao45-531Gta [facility] Comment on above:Performed By: #### INFLUAB #### [facility] [address] [address] [address] Ashlie HillsCO2 [Moles/Vol]31.2 mmol/CPnetct37.0-32.0[facility] Comment on above:Performed By: #### INFLUAB #### [facility] [address] [place] [address] Dr. Ashlie HillsCreatinine [Mass/Vol]0.96 mg/dLNormal0.55-1.02The [facility] SystemComment on above:Performed By: #### INFLUAB #### [facility] [address] [place] [address] Dr. Ashlie GrahamGFR-AF BOTSWANAN>60Normal>=60The [facility] Health SystemComment on above:Performed By: #### INFLUAB #### [facility] [address] [place] [address] Dr. Ashlie GrahamGFR-NON AF BOTSWANAN>60Normal>=60The [facility] SystemComment on above:Performed By: #### INFLUAB #### [facility] [address] [address] [address] Ashlie HillsGlucose [Mass/Vol]288 mg/dLCritically wqlx81-788Vsm [facility] SystemComment on above:Performed By: #### INFLUAB #### [facility] [address] [address] [address] Ashlie HillsPotassium [Moles/Vol]5.1 mmol/LNormal3.5-5.1[facility] Comment on above:Performed By: #### INFLUAB #### [facility] [address] [place] [address] Dr. Ashlie HillsSodium [Moles/Vol]140 mmol/CWftziz615-712QdiTrinity Health System [facility] Comment on above:Performed By: #### INFLUAB #### [facility] [address] [place] [address] Dr. Ashlie Jones nitrogen [Mass/Vol]30.0 mg/dLCritically high7.0-18.0The [facility] SystemComment on above:Performed By: #### INFLUAB #### [facility] [address] [place] [address] Dr. Ashlie Jones nitrogen/Creatinine [Mass ratio]31.2 mg/mgNormalThe Salyer HospitalComment on above:Performed By: #### INFLUAB #### [facility] [address] [place] [address] Dr. Ashlie Chinchilla AUTO DIFFon 86-90-4812WAUV #0.0 103/ulNormal0.0-0.1The [facility] Health SystemComment on above:Performed By: #### CBC #### [facility] [address] [place] [address] Dr. Ashlie HillsBasophils/100 WBC (Bld)0.4 %Normal0.2-2.0[facility] Comment on above:Performed By: #### CBC #### [facility] [address] [place] [address] Dr. Ashlie Mcintosh #0.0 103/ulNormal0.0-0.7The [facility] Health SystemComment on above: Performed By: #### CBC #### [facility] [address] [place] [address] Dr. Ashlie Grahamosinophils/100 WBC (Bld)0.0 %Critically low0.9-7.0The [facility] Health SystemComment on above:Performed By: #### CBC #### [facility] [address] [place] [address] Dr. Ashlie Grahamrythrocyte distribution width (RBC) [Ratio]14.8 %Lomety36.0-15.0 The [facility] Health SystemComment on above:Performed By: #### CBC #### [facility] [address] [place] [address] Dr. Ashlie HillsHematocrit (Bld) [Volume fraction]49.9 %Critically high36.0-48.0 The [facility] Health SystemComment on above:Performed By: #### CBC #### [facility] [address] [place] [address] Dr. Ashlie HillsHemoglobin (Bld) [Mass/Vol]15.7 g/qKYbdebn26.0-16.0The [facility] SystemComment on above:Performed By: #### CBC #### [facility] [address] [place] [address] Dr. Ashlie Hunter #0.04 10e3/ulCritically high0.00-0.03The [facility] Comment on above:Performed By: #### CBC #### [facility] [address] [place] [address] Dr. Ashlie Hunter %0.5 %Normal0.0-0.5The [facility] Health SystemComment on above: Performed By: #### CBC #### [facility] [address] [place] [address] Dr. Ashlie Swenson #1.1 103/ulCritically low1.2-3.8The [facility] Comment on above:Performed By: #### CBC #### [facility] [address] [place] [address] Dr. Ashlie Dsouzahocytes/100 WBC (Bld)12.7 %Critically low20.5-60.0The [facility] SystemComment on above:Performed By: #### CBC #### [facility] [address] [place] [address] Dr. Ashlie GhoshUAL DIFF REQNONormalThe [facility] SystemComment on above: Performed By: #### CBC #### [facility] [address] [place] [address] Dr. Ashlie Granger (RBC) [Entitic mass]28.1 mnMmcqqo47.7-34.0The [facility] SystemComment on above:Performed By: #### CBC #### [facility] [address] [place] [address] Dr. Ashlie Mckeon (RBC) [Mass/Vol]31.5 g/cLDcwicy28.9-35.2The [facility] SystemComment on above:Performed By: #### CBC #### [facility] [address] [address] [address] Ashlie Mckeon (RBC) [Entitic vol]89.3 aXLgyhzm19.0-99.0The [facility] SystemComment on above:Performed By: #### CBC #### [facility] [address] [place] [address] Dr. Ashlie Killian #0.1 103/ulCritically low0.3-0.8The [facility] SystemComment on above:Performed By: #### CBC #### [facility] [address] [place] [address] Dr. Ashlie Palominoocytes/100 WBC (Bld)1.3 %Critically low1.7-12.0The [facility] SystemComment on above:Performed By: #### CBC #### [facility] [address] [place] [address] Dr. Ashlie Olsen #7.2 103/ulCritically high1.4-6.5The [facility] Comment on above:Performed By: #### CBC #### [facility] [address] [place] [address] Dr. Ashlie Steinutrophils/100 WBC (Bld)85.1 %Critically high43.0-75.0The [facility] SystemComment on above:Performed By: #### CBC #### [facility] [address] [place] [address] Dr. Ashlie Lantigualet mean volume (Bld) [Entitic vol]12.2 fLNormal9.5-13.5The [facility] SystemComment on above:Performed By: #### CBC #### [facility] [address] [place] [address] Dr. Ashlie HillsPLT116 103/ulCritically jpi775-340Dnq [facility] SystemComment on above:Performed By: #### CBC #### [facility] [address] [address] [address] Ashlie HillsRBC5.59 106/ulCritically high4.20-5.40The [facility] Comment on above:Performed By: #### CBC #### [facility] [address] [address] [address] Ashlie HillsWBC8.5 103/ulNormal4.0-11.0The [facility] Health SystemComment on above: Performed By: #### CBC #### [facility] [address] [address] [address] Ashlie Harrison CHEST WO W CONon 18-28-1187XLM CHEST WO W CONEXAMINATION: CTA CHEST WO [...] Electronically authenticated by: HATTIE GOFF Date: 2022-12-05 01:[address] [place], [place] [address]ue HospitalMAGNESIUMon 03-25-8417Ixqxnhrbo [Mass/Vol]2.1 mg/dLNormal 1.8-2.4The [facility] Health SystemComment on above:Performed By: #### POCGLUC #### [facility] [address] [address] [address] Ashlie HillsPOINT OF CARE GLUCOSEon 12-23-6626Shzroch [Mass/Vol]293 mg/dL Critically nqje48-643FxrTrinity Health System [facility] CenterComment on above:Performed By: #### POCGLUC #### [facility] [address] [address] [address] Ashlie HillsGlucose [Mass/Vol]269 mg/dLCritically iopg78-503Hnj [facility] SystemComment on above:Performed By: #### POCGLUC #### [facility] [address] [place] [address] Dr. Ashlie HillsGlucose [Mass/Vol]223 mg/dLCritically szoo89-266Jjm [facility] SystemComment on above:Performed By: #### CVDAGS #### [facility] [address] [address] [address] Ashlie HillsPROF CHEM 8 (BAS METB)on 22-74-4235Fdsdf gap [Moles/Vol]11.6 mmol/LNormalTrinity Health System [facility] Medical CenterComment on above:Performed By: #### POCGLUC #### [facility] [address] [address] [address] Ashlie HillsCalcium [Mass/Vol]9.2 mg/dLNormal8.5-10.1[facility] Comment on above:Performed By: #### POCGLUC #### [facility] [address] [address] [address] Ashlie HillsChloride [Moles/Vol]102 mmol/TUxfpqg24-995SpqTrinity Health System [facility] Comment on above:Performed By: #### POCGLUC #### [facility] [address] [place] [address] Dr. Ashlie HillsCO2 [Moles/Vol]28.7 mmol/DSezdqm52.0-32.0[facility] Comment on above:Performed By: #### POCGLUC #### [facility] [address] [address] [address] Ashlie HilslCreatinine [Mass/Vol]1.04 mg/dLCritically high0.55-1.02[facility] CenterComment on above:Performed By: #### POCGLUC #### [facility] [address] [address] [address] Ashlie GrahamGFR-AF BOTSWANAN>60Normal>=60The [facility] Health SystemComment on above:Performed By: #### POCGLUC #### [facility] [address] [address] [address] Ashlie GrahamGFR-NON AF KBQIKXYZ85 mL/min/1.24w8Gkxyrivwrm low>=60The [facility] SystemComment on above:Performed By: #### POCGLUC #### [facility] [address] [address] [address] Ashlie HillsGlucose [Mass/Vol]231 mg/dLCritically njue36-457Wwj [facility] SystemComment on above:Performed By: #### POCGLUC #### [facility] [address] [address] [address] Ashlie HillsPotassium [Moles/Vol]4.3 mmol/LNormal3.5-5.1[facility] Comment on above:Performed By: #### POCGLUC #### [facility] [address] [address] [address] Ashlie HillsSodium [Moles/Vol]138 mmol/OOgcrbe108-512BzeTrinity Health System [facility] Comment on above:Performed By: #### POCGLUC #### [facility] [address] [address] [address] Ashlie HillsUrea nitrogen [Mass/Vol]17.0 mg/dLNormal7.0-18.0The [facility] SystemComment on above:Performed By: #### POCGLUC #### [facility] [address] [address] [address] Ashlie HillsUrea nitrogen/Creatinine [Mass ratio]16.3 mg/mgNormalThe [facility] SystemComment on above:Performed By: #### POCGLUC #### [facility] [address] [address] [address] Ashlie HillsRESPIRATORY PANEL PLUSon 83-01-0481GmmjcrfnwdVtw detectedNormal NOT DETECTEDThe [facility] SystemComment on above:Performed By: #### CVDAGS #### [facility] [address] [address] [address] Ashlie Gandhi ParapertusisNot detectedNormalNOT DETECTEDThe [facility] SystemComment on above:Performed By: #### CVDAGS #### [facility] [address] [address] [address] Ashlie Gandhi PertussisNot detectedNormalNOT DETECTEDThe [facility] on above:Performed By: #### CVDAGS #### [facility] [address] [address] [address] Ashlie HillsChlamydia PneumoniaeNot detectedNormalNOT DETECTEDThe [facility] SystemComment on above:Performed By: #### CVDAGS #### [facility] [address] [address] [address] Ashlie HillsCoronavirus 229ENot detectedNormalNOT DETECTEDThe [facility] SystemComcorewell health [facility] on above:Performed By: #### CVDAGS #### [facility] [address] [address] [address] Ashlie HillsCoronavirus TDO6Snw detectedNormalNOT DETECTEDThe [facility] SystemComment on above:Performed By: #### CVDAGS #### [facility] [address] [address] [address] Ashlie HillsCoronavirus CY30Hon detectedNormalNOT DETECTEDThe [facility] SystemComment on above:Performed By: #### CVDAGS #### [facility] [address] [address] [address] Ashlie HillsCoronavirus XW27Ubi detectedNormalNOT DETECTEDThe [facility] SystemComment on above:Performed By: #### CVDAGS #### [facility] [address] [address] [address] Ashlie Centeno H1Not detectedNormalNOT DETECTEDThe [facility] Comment on above:Performed By: #### CVDAGS #### [facility] [address] [address] [address] Ashlie Centeno H1 2009Not detectedNormalNOT DETECTEDThe [facility] SystemComment on above:Performed By: #### CVDAGS #### [facility] [address] [address] [address] Ashlie Centeno H3Not detectedNormalNOT DETECTEDThe [facility] Comment on above:Performed By: #### CVDAGS #### [facility] [address] [address] [address] Ashlie Lockhart BNot detectedNormalNOT DETECTEDTrinity Health [facility] Comment on above:Performed By: #### CVDAGS #### [facility] [address] [address] [address] Ashlie ChávezapneumovirusNot detectedNormalNOT DETECTEDThe [facility] SystemComment on above:Performed By: #### CVDAGS #### [facility] [address] [address] [address] Ashlie Jimenez. PneumoniaeNot detectedNormalNOT DETECTEDThe [facility] SystemComcorewell health [facility] on above:Performed By: #### CVDAGS #### [facility] [address] [address] [address] Ashlie Mendieta 1Not detectedNormalNOT DETECTEDThe [facility] SystemComment on above:Performed By: #### CVDAGS #### [facility] [address] [address] [address] Ashlie Mendieta 2Not detectedNormalNOT DETECTEDThe [facility] SystemComcorewell health [facility] on above:Performed By: #### CVDAGS #### [facility] [address] [address] [address] Ashlie Menideta 3DetectedAbnormalNOT DETECTEDThe [facility] Comment on above:Performed By: #### CVDAGS #### [facility] [address] [place] [address] Dr. Ashlie Harringtonfluenza 4Not detectedNormalNOT DETECTEDThe [facility] SystemComment on above:Performed By: #### CVDAGS #### [facility] [address] [place] [address] Dr. Ashlie HillsRhino/EnterovirusNot detectedNormalNOT DETECTEDThe [facility] SystemComment on above:Performed By: #### CVDAGS #### [facility] [address] [place] [address] Dr. Ashlie Gallagher Header 1RESPIRATORY PANEL: [facility]ESKn[facility] Comment on above:Performed By: #### CVDAGS #### [facility] [address] [place] [address] Dr. Ashlie Gallagher Header 2RESPIRATORY PANEL: BACTERIAKnox Community HospitalComment on above:Performed By: #### CVDAGS #### [facility] [address] [place] [address] Dr. Ashlie TerryVNot detectedNormalNOT DETECTEDThe [facility] SystemComcorewell health [facility] on above:Performed By: #### CVDAGS #### [facility] [address] [place] [address] Dr. Ashlie Finney-CoV-2 (COVID-19) RNA MADDY+probe Ql (Unsp spec)Not detected NormalNOT DETECTEDThe [facility] Hospitalment on above:Performed By: #### CVDAGS #### [facility] [address] [place] [address] Dr. Ashlie HillsXR CHEST 1 Von [id number] CHEST 1 VEXAMINATION: XR CHEST 1 V HISTORY: Shortness of breath COMPARISON: Chest x-ray 08/09/2021 TECHNIQUE: Portable chest FINDINGS: The lung parenchyma is free of consolidation or infiltrate. No pneumothorax or pleural effusion. The cardiac, mediastinal and hilar contours are normal. The visualized osseous structures exhibit no gross abnormality. IMPRESSION: No acute cardiopulmonary abnormality. Electronically authenticated by: MARYANNE POWER Date: 2022-12-04 22:23NoACMC Healthcare System GlenbeighBLOOD GASES BTYon [id number] [facility] HospitalComment on above:Performed By: #### CBC #### [facility] [address] [address] [address] Ashlie Duran TESTPositiveKnox Community HospitalComcorewell health [facility] on above: Performed By: #### CBC #### [facility] [address] [address] [address] Ashlie Crenshaw excess Calc (Bld) [Moles/Vol]5.4 mmol/LCritically high -2.0-2.0The [facility] on above:Performed By: #### CBC #### [facility] [address] [address] [address] Ashlie Cevallos [facility] on above: Performed By: #### CBC #### [facility] [address] [address] [address] Ashlie HillsCPTriHealth [facility]ull[facility] on above:Performed By: #### CBC #### [facility] [address] [address] [address] Ashlie RodWuefeGAU2CgmhvyDecKettering Health Washington Township on above:Performed By: #### CBC #### [facility] [address] [address] [address] Ashlie BahenaO3 (Bld) [Moles/Vol]30.8 mmol/LCritically high22.0-26.0The [facility] on above:Performed By: #### CBC #### [facility] [address] [address] [address] Ashlie HillsLPMNormalTrinity Health System [facility] Medical CenterComcorewell health [facility] on above:Performed By: #### CBC #### [facility] [address] [address] [address]ettWilson [address] HospitalComcorewell health [facility] on above: Performed By: #### CBC #### [facility] [address] [address] [address] Ashlie HillsOxygen (Bld) [Partial pressure]46.3 mm[Hg]Critically low 80.0-100.0The [facility] Health SystemComment on above:Performed By: #### CBC #### [facility] [address] [place] [address] Dr. Ashlie HillsOxygen saturation in Blood83.9 %Critically low95.0-100.0The [facility] on above:Performed By: #### CBC #### [facility] [address] [place] [address] Dr. Ashlie HillsPCO254.2 mmHgCritically high35.0-45.0The [facility] SystemComcorewell health [facility] on above:Performed By: #### CBC #### Memorial [facility] [address] [place] [address] Dr. Ashlie HillsBrecksville VA / Crille HospitalComcorewell health [facility] on above:Performed By: #### CBC #### [facility] [address] [place] [address] Dr. Ashlie Knapp (Bld)7.363 [pH]Normal7.350-7.450The [facility] on above:Performed By: #### CBC #### [facility] [address] [place] [address] Dr. Ashlie VerasMarion Hospital on above:Performed By: #### CBC #### [facility] [address] [place] [address] Dr. Ashlie HillsSelect Medical Specialty Hospital - CantonComcorewell health [facility] on above:Performed By: #### CBC #### [facility] [address] [place] [address] Dr. Ashlie Avendano [facility] - CantonComcorewell health [facility] on above: Performed By: #### CBC #### [facility] [address] [place] [address] Dr. Ashlie GoldKettering Health SpringfieldComcorewell health [facility] on above:Performed By: #### CBC #### [facility] [address] [place] [address] Dr. Ashlie HillsHolzer HospitalComcorewell health [facility] on above:Performed By: #### CBC #### [facility] [address] [place] [address] Dr. Ashlie DoeNormalThe Memorial Health SystemComment on above:Performed By: #### CBC #### [facility] [address] [place] [address] Dr. Ashlie Perry [id number] peptide B (Bld) [Mass/Vol]76.0 pg/mL Normal<=900.0The [facility] SystemComment on above:Performed By: #### POCGLUC #### [facility] [address] [place] [address] Dr. Ashlie Chinchilla AUTO DIFFon [id number] #0.1 103/ulNormal0.0-0.1The [facility] SystemComment on above:Performed By: #### CBC #### [facility] [address] [place] [address] Dr. Ashlie HillsBasophils/100 WBC (Bld)0.6 %Normal0.2-2.0[facility] Comment on above:Performed By: #### CBC #### [facility] [address] [place] [address] Dr. Ashlie Mcintosh #0.2 103/ulNormal0.0-0.7The [facility] SystemComcorewell health [facility] on above: Performed By: #### CBC #### [facility] [address] [place] [address] Dr. Ashlie Grahamosinophils/100 WBC (Bld)1.9 %Normal0.9-7.0[facility] Comment on above:Performed By: #### CBC #### [facility] [address] [place] [address] Dr. Ashlie Grahamrythrocyte distribution width (RBC) [Ratio]15.0 %Qwdbhv52.0-15.0 [facility] CenterComment on above:Performed By: #### CBC #### [facility] [address] [place] [address] Dr. Ashlie HillsHematocrit (Bld) [Volume fraction]49.1 %Critically high36.0-48.0 The [facility] SystemComment on above:Performed By: #### CBC #### [facility] [address] [place] [address] Dr. Ashlie HillsHemoglobin (Bld) [Mass/Vol]15.6 g/mAKcgmpw67.0-16.0The [facility] SystemComment on above:Performed By: #### CBC #### [facility] [address] [place] [address] Dr. Ashlie Hunter #0.02 10e3/ulNormal0.00-0.03The [facility] SystemComment on above:Performed By: #### CBC #### [facility] [address] [place] [address] Dr. Ashlie Hunter %0.2 %Normal0.0-0.5The [facility] SystemComment on above: Performed By: #### CBC #### [facility] [address] [place] [address] Dr. Ashlie Swenson #2.8 103/ulNormal1.2-3.8The [facility] SystemComment on above:Performed By: #### CBC #### [facility] [address] [place] [address] Dr. Ashlie Dsouzahocytes/100 WBC (Bld)29.9 %Xbmkmw76.5-60.0The [facility] SystemComment on above:Performed By: #### CBC #### [facility] [address] [place] [address] Dr. Ashlie GhoshUAL DIFF REQNONormalThe [facility] SystemComment on above: Performed By: #### CBC #### [facility] [address] [place] [address] Dr. Ashlie Granger (RBC) [Entitic mass]28.5 ccSacvzo61.7-34.0The [facility] SystemComment on above:Performed By: #### CBC #### [facility] [address] [place] [address] Dr. Ashlie Mckeon (RBC) [Mass/Vol]31.8 g/tPKqytxj06.9-35.2The [facility] SystemComment on above:Performed By: #### CBC #### [facility] [address] [place] [address] Dr. Ashlie MckeonV (RBC) [Entitic vol]89.8 iLEkrjck69.0-99.0The [facility] SystemComment on above:Performed By: #### CBC #### [facility] [address] [place] [address] Dr. Ashlie Killian #1.0 103/ulCritically high0.3-0.8The [facility] Comment on above:Performed By: #### CBC #### [facility] [address] [place] [address] Dr. Ashlie Palominoocytes/100 WBC (Bld)10.6 %Normal1.7-12.0[facility] Comment on above:Performed By: #### CBC #### [facility] [address] [place] [address] Dr. Ashlie Olsen #5.3 103/ulNormal1.4-6.5The [facility] SystemComment on above:Performed By: #### CBC #### [facility] [address] [place] [address] Dr. Ashlie Steinutrophils/100 WBC (Bld)56.8 %Hqomdb36.0-75.0The [facility] SystemComment on above:Performed By: #### CBC #### [facility] [address] [place] [address] Dr. Ashlie Lantigualet mean volume (Bld) [Entitic vol]12.5 fLNormal9.5-13.5The [facility] SystemComment on above:Performed By: #### CBC #### [facility] [address] [place] [address] Dr. Ashlie HillsPLT109 103/ulCritically twn451-871Adi [facility] SystemComment on above:Performed By: #### CBC #### [facility] [address] [place] [address] Dr. Ashlie HillsRBC5.47 106/ulCritically high4.20-5.40[facility] Comment on above:Performed By: #### CBC #### [facility] [address] [place] [address] Dr. Ashlie HillsWBC9.4 103/ulNormal4.0-11.0The [facility] SystemComment on above: Performed By: #### CBC #### [facility] [address] [place] [address] Dr. Ashlie LlanosF 14(COMP METB)on 04-83-5138Joozmgv [Mass/Vol]2.9 g/dL Critically low3.4-5.0The [facility] SystemComment on above:Performed By: #### CBC #### [facility] [address] [place] [address] Dr. Ashlie HillsAlbumin/Globulin [Mass ratio]0.6 {ratio}NormalThe [facility] Health SystemComment on above:Performed By: #### CBC #### [facility] [address] [place] [address] Dr. Ashlie Gonzalez [Catalytic activity/Vol]64 U/POsxycu19-031Vjh [facility] SystemComment on above:Performed By: #### CBC #### [facility] [address] [place] [address] Dr. Ashlie Chambers [Catalytic activity/Vol]16 U/PHrrtrl06-82Xhc [facility] SystemComment on above:Performed By: #### CBC #### [facility] [address] [place] [address] Dr. Ashlie Arce gap [Moles/Vol]9.6 mmol/LNormalThe [facility] SystemComment on above:Performed By: #### CBC #### [facility] [address] [place] [address] Dr. Ashlie Tiwari [Catalytic activity/Vol]16 U/ZNazjgk91-17Xri [facility] SystemComment on above:Performed By: #### CBC #### [facility] [address] [place] [address] Dr. Ashlie HillsBilirubin [Mass/Vol]0.5 mg/dLNormal0.2-1.0[facility] Comment on above:Performed By: #### CBC #### [facility] [address] [place] [address] Dr. Ashlie HillsCalcium [Mass/Vol]8.7 mg/dLNormal8.5-10.1[facility] Comment on above:Performed By: #### CBC #### [facility] [address] [place] [address] Dr. Ashlie HillsChloride [Moles/Vol]103 mmol/MDugqfx07-804Gzk [facility] Comment on above:Performed By: #### CBC #### [facility] [address] [place] [address] Dr. Ashlie HillsCO2 [Moles/Vol]30.7 mmol/BQapvss28.0-32.0[facility] Comment on above:Performed By: #### CBC #### [facility] [address] [place] [address] Dr. Ashlie HillsCreatinine [Mass/Vol]0.96 mg/dLNormal0.55-1.02The [facility] SystemComment on above:Performed By: #### CBC #### [facility] [address] [place] [address] Dr. Ashlie GrahamGFR-AF BOTSWANAN>60Normal>=60The [facility] SystemComment on above:Performed By: #### CBC #### [facility] [address] [place] [address] Dr. Ashlie Delaney-NON AF BOTSWANAN>60Normal>=60The [facility] SystemComment on above:Performed By: #### CBC #### [facility] [address] [place] [address] Dr. Ashlie HillsGlobulin (S) [Mass/Vol]4.7 g/dLNormalThe [facility] SystemComment on above:Performed By: #### CBC #### [facility] [address] [place] [address] Dr. Ashlie HillsGlucose [Mass/Vol]170 mg/dLCritically lklf62-998Xhu [facility] SystemComment on above:Performed By: #### CBC #### [facility] [address] [address] [address] Ashlie iHllsPotassium [Moles/Vol]4.3 mmol/LNormal3.5-5.1The [facility] Comment on above:Performed By: #### CBC #### [facility] [address] [address] [address] Ashlie HillsProtein [Mass/Vol]7.6 g/dLNormal6.4-8.2[facility] Comment on above:Performed By: #### CBC #### [facility] [address] [address] [address] Ashlie HillsSodium [Moles/Vol]139 mmol/NMcafio040-387Klx [facility] Comment on above:Performed By: #### CBC #### [facility] [address] [address] [address] Ashlie HillsUrea nitrogen [Mass/Vol]16.0 mg/dLNormal7.0-18.0The [facility] SystemComment on above:Performed By: #### CBC #### [facility] [address] [address] [address] Ashlie oJnes nitrogen/Creatinine [Mass ratio]16.7 mg/mgNormalThe [facility] SystemComment on above:Performed By: #### CBC #### [facility] [address] [address] [address] Ashlie KirbyMPTOMATIC COVID-19 ANTIGENon [id number] StatementSEE BELOW NormalThe [facility] SystemComment on above:Result Comment: This test has not [...] is revoked sooner.Performed By: #### CVDAGS #### [facility] [address] [place] [address] Dr. Ashlie Finney-CoV-2 (COVID-19) RNA MADDY+probe Ql (Unsp spec)NegativeNormal NEGATIVEThe [facility] SystemComment on above:Performed By: #### CVDAGS #### [facility] [address] [place] [address] Dr. Ashlie Alvarado, [facility] SENSITIVITYon 59-96-1158XNRZDZ6.9 pg/mLNormal 4.0-51.3The [facility] SystemComment on above:Result Comment: CUT-OFF POINTS HAVE BEEN ESTABLISHED BASED ON THE FOURTH UNIVERSAL DEFINITIONS OF MYOCARDIAL INFARCTION. THE UPPER REFERENCE LIMIT (URL) OF TROPONIN, DEFINED THE 99TH PERCENTILE OF cTnI DISTRIBUTION IN A REFERENCE POPULATION, HAS BEEN CONFIRMED THE DECISION THRESHOLD FOR VA DIAGNOSIS.Performed By: #### POCGLUC #### [facility] [address] [place] [address] Dr. Ashlie MarshallALBUMIN, RAND URon 53-67-3990jBTQ75.8 mg/dLCritically high <=30.0The [facility] SystemComment on above:Performed By: #### CVDAGS #### [facility] [address] [place] [address] Dr. Ashlie Vaughn RANDOM W/MICROSCOPICon [id number] SEENNormalNONE SEENTrinity [facility] System [facility] CenterComment on above:Performed By: #### CVDAGS #### [facility] [address] [place] [address] Dr. Ashlie HillsBilirubin Ql (U)NegativeNormalNEGATIVEThe [facility] Comment on above:Performed By: #### CVDAGS #### [facility] [address] [place] [address] Dr. Ashlie SchultzSEENAbnormalNONE SEENThe [facility]alyer HospitalComment on above: Performed By: #### CVDAGS #### [facility] [address] [address] [address] Ashlie HillsClarity (U)CLEARNormalCLEARTrinity Health System [facility] CenterComcorewell health [facility] on above: Performed By: #### CVDAGS #### [facility] [address] [address] [address] Ashlie Roberts (U)YELLOWNormalYELLOWTrinity Health System [facility] Medical CenterComment on above: Performed By: #### CVDAGS #### [facility] [address] [address] [address] Ashlie HillsCrystals LM Nom (Urine sed)NONE SEENNormalNONE SEENTrinity Health System [facility] Medical CenterComcorewell health [facility] on above:Performed By: #### CVDAGS #### [facility] [address] [place] [address] Dr. Dailey ChangEpithelial cells LM Ql (Urine sed)MODERATEAbnormalNONE SEEN /RARE The [facility] SystemComcorewell health [facility] on above:Performed By: #### CVDAGS #### [facility] [address] [place] [address] Dr. Ashlie HillsGlucose Ql (U)NegativeNormalNEGATIVETrinity Health System [facility] CenterComcorewell health [facility] on above:Performed By: #### CVDAGS #### [facility] [address] [place] [address] Dr. Ashlie HillsHemoglobin Ql (U)TRACE-INTACTAbnormalNEGATIVETrinity Health System [facility] CenterComcorewell health [facility] on above:Performed By: #### CVDAGS #### [facility] [address] [place] [address] Dr. Ashlie HillsKetones Ql (U)NegativeNormalNEGATIVETrinity Health System [facility] CenterComcorewell health [facility] on above:Performed By: #### CVDAGS #### [facility] [address] [place] [address] Dr. Ashlie HillsLEUKOCYTESNegativeNormalNEGATIVETrinity Health System [facility] CenterComcorewell health [facility] on above:Performed By: #### CVDAGS #### [facility] [address] [place] [address] Dr. Ashlie McphersonUSRODRIGUEZE SEENNormalNONE SEENTrinity Health System [facility] Medical CenterComment on above:Performed By: #### CVDAGS #### [facility] [address] [place] [address] Dr. Ashlie Soares Ql (U)NegativeNormalNEGATIVEThe [facility] SystemComment on above:Performed By: #### CVDAGS #### [facility] [address] [place] [address] Dr. Ashlie HillspH (U)5.0 [pH]Normal5-9The [facility] SystemComment on above: Performed By: #### CVDAGS #### [facility] [address] [place] [address] Dr. Ashlie PruettHagwjQLG4-4Dmadam4-3Zod [facility] SystemComment on above:Performed By: #### CVDAGS #### [facility] [address] [place] [address] Dr. Ashlie HillsSPEC GRAVITY1.281Dmmqjvok4.005-<=1.025The [facility] Comment on above:Performed By: #### CVDAGS #### [facility] [address] [place] [address] Dr. Ashlie Vaughn QPGBKOI941 mg/dlAbnormalNEGATIVE/ TRACEThe [facility] Comment on above:Performed By: #### CVDAGS #### [facility] [address] [place] [address] Dr. Ashlie Metzbilkrystynagen Qn (U)0.2 {Little'U}/dLNormal0.2 - 1.0The [facility] SystemComment on above:Performed By: #### CVDAGS #### [facility] [address] [place] [address] Dr. Ashlie HillsWBCNONE SEENNormalNONE SEENTrinity Health System [facility] Medical CenterComment on above: Performed By: #### CVDAGS #### [facility] [address] [place] [address] Dr. Ashlie Chinchilla AUTO DIFFon [id number] #0.0 103/ulNormal0.0-0.1The [facility] SystemComment on above:Performed By: #### CBC #### [facility] [address] [place] [address] Dr. Ashlie HillsBasophils/100 WBC (Bld)0.3 %Normal0.2-2.0[facility] Comment on above:Performed By: #### CBC #### [facility] [address] [place] [address] Dr. Ashlie Mcintosh #0.4 103/ulNormal0.0-0.7The [facility] SystemComment on above: Performed By: #### CBC #### [facility] [address] [place] [address] Dr. Ashlie Grahamosinophils/100 WBC (Bld)3.0 %Normal0.9-7.0[facility] Comment on above:Performed By: #### CBC #### [facility] [address] [place] [address] Dr. Ashlie Grahamrythrocyte distribution width (RBC) [Ratio]15.3 %Critically high 11.0-15.0[facility] Medical CenterComment on above:Performed By: #### CBC #### [facility] [address] [place] [address] Dr. Ashlie HillsHematocrit (Bld) [Volume fraction]52.4 %Critically high36.0-48.0 The [facility] Health SystemComment on above:Performed By: #### CBC #### [facility] [address] [place] [address] Dr. Ashlie HillsHemoglobin (Bld) [Mass/Vol]16.8 g/dLCritically high12.0-16.0[facility] CenterComment on above:Performed By: #### CBC #### [facility] [address] [place] [address] Dr. Ashlie Hunter #0.04 10e3/ulCritically high0.00-0.03The [facility] Comment on above:Performed By: #### CBC #### [facility] [address] [place] [address] Dr. Ashlie Hunter %0.3 %Normal0.0-0.5The [facility] SystemComment on above: Performed By: #### CBC #### [facility] [address] [place] [address] Dr. Ashlie Swenson #4.5 103/ulCritically high1.2-3.8The [facility] Comment on above:Performed By: #### CBC #### [facility] [address] [place] [address] Dr. Ashlie Dsouzahocytes/100 WBC (Bld)33.2 %Vmbgbe59.5-60.0The [facility] SystemComment on above:Performed By: #### CBC #### [facility] [address] [place] [address] Dr. Ashlie GhoshUAL DIFF REQNONormalThe [facility] SystemComment on above: Performed By: #### CBC #### [facility] [address] [place] [address] Dr. Ashlie Granger (RBC) [Entitic mass]28.0 kqSsdfah20.7-34.0The [facility] SystemComment on above:Performed By: #### CBC #### [facility] [address] [place] [address] Dr. Ashlie Mckeon (RBC) [Mass/Vol]32.1 g/aDSprozj34.9-35.2The [facility] SystemComment on above:Performed By: #### CBC #### [facility] [address] [place] [address] Dr. Ashile Mckeon (RBC) [Entitic vol]87.3 vBCcxyko42.0-99.0The [facility] SystemComment on above:Performed By: #### CBC #### [facility] [address] [place] [address] Dr. Ashlie Killian #0.8 103/ulNormal0.3-0.8The [facility] SystemComment on above:Performed By: #### CBC #### [facility] [address] [place] [address] Dr. Ashlie Palominoocytes/100 WBC (Bld)5.7 %Normal1.7-12.0[facility] Comment on above:Performed By: #### CBC #### [facility] [address] [place] [address] Dr. Ashlie Olsen #7.8 103/ulCritically high1.4-6.5ThMcCullough-Hyde Memorial Hospital Comment on above:Performed By: #### CBC #### [facility] [address] [address] [address] Ashlie Steinutrophils/100 WBC (Bld)57.5 %Robfwd88.0-75.0The [facility] SystemComment on above:Performed By: #### CBC #### [facility] [address] [place] [address] Dr. Ashlie HillsPlatelet mean volume (Bld) [Entitic vol]12.0 fLNormal9.5-13.5The [facility] SystemComment on above:Performed By: #### CBC #### [facility] [address] [place] [address] Dr. Ashlie HillsPLT152 103/lmGtjryy394-957NcuTrinity Health System [facility] City Medical CenterComment on above: Performed By: #### CBC #### [facility] [address] [place] [address] Dr. Ashlie HillsRBC6.00 106/ulCritically high4.20-5.40[facility] Comment on above:Performed By: #### CBC #### [facility] [address] [place] [address] Dr. Ashlie HillsWBC13.6 103/ulCritically high4.0-11.0[facility] CenterComment on above:Performed By: #### CBC #### [facility] [address] [place] [address] Dr. Ashlie HillsLIPID PROFILEon 67-30-2591DFRB-HDL RATIO NORMSEE BELOWNoACMC Healthcare System GlenbeighComment on above:Result Comment: 3.3 - 4.4 LOW RISK 4.4 - 7.1 AVERAGE RISK 7.1 - 11.0 MODERATE RISK >11.0 HIGH RISKPerformed By: #### CBC #### [facility] [address] [address] [address] Ashlie HillsCholesterol [Mass/Vol]139 mg/dLNormal<=200[facility] Comment on above:Performed By: #### CBC #### [facility] [address] [address] [address] Ashlie HillsCholesterol in HDL [Mass/Vol]35 mg/dLCritically ede10-84QrtTrinity Health System Twin City Medical CenterComment on above:Performed By: #### CBC #### [facility] [address] [address] [address] Ashlie HillsCholesterol in LDL [Mass/Vol]67.4 mg/dLKnox Community HospitalComment on above:Performed By: #### CBC #### [facility] [address] [place] [address] Dr. Ashlie Lopezesteroralia.total/Cholesterol in HDL [Mass ratio]4.0 {ratio} NormalTrinity Health System Twin City Medical CenterComment on above:Performed By: #### CBC #### [facility] [address] [address] [address] Ashlie Potts NORMAL> or = 60 mg/dl - LOW CARDIOVASCULAR RISK <40 mg/dl - HIGH CARDIOVASCULAR RISKKnox Community HospitalComment on above:Performed By: #### CBC #### [facility] [address] [address] [address] Ashlie HillsLDL CALC NORMALSEE BELOWKnox Community HospitalComment on above:Result Comment: <100 mg/dl OPTIMAL 100 - 129 mg/dl NEAR OR ABOVE OPTIMAL 130 - 159 mg/dl BORDERLINE HIGH 160 - 189 mg/dl HIGH >190 mg/dl VERY HIGH Performed By: #### CBC #### [facility] [address] [place] [address] Dr. Ashlie HillsTriglyceride [Mass/Vol]183 mg/dLCritically high<=150The [facility] SystemComment on above:Performed By: #### CBC #### [facility] [address] [address] [address] Ashlie HillsVLDL CALC36.6 mg/dLNoACMC Healthcare System GlenbeighComment on above: Performed By: #### CBC #### [facility] [address] [address] [address] Ashlie HillsMG MAMM SCREEN 3D ALEX CADon [id number] MAMM SCREEN 3D ALEX CAD Patient: MITZI MACIAS Exam Date: 11/22/2022 : 1970 Gender:F Ordering : SAYDA MCKAYLA [employer] Admission #: [id number] Family : Order #: [id number] CLICK HERE TO VIEW EXAM RADIOLOGY REPORT [...] unknown cancer at age 75. LOCATION: [facility] BREAST COMPOSITION: Almost entirely fatty. [...] by: Patricia Veloz M.D. on 11/22/2022 at 12:09NoACMC Healthcare System GlenbeighPROF 14(COMP METB)on 69-45-7723Ewxkfcx [Mass/Vol]3.0 g/dLCritically low 3.4-5.0The [facility] SystemComment on above:Performed By: #### CBC #### [facility] [address] [address] [address] Ashlie HillsAlbumin/Globulin [Mass ratio]0.6 {ratio}NormalThe [facility] SystemComment on above:Performed By: #### CBC #### [facility] [address] [address] [address] Ashlie MoralesP [Catalytic activity/Vol]68 U/FFjrlza30-301Lqb [facility] SystemComment on above:Performed By: #### CBC #### [facility] [address] [address] [address] Ashlie MoralesT [Catalytic activity/Vol]14 U/HMyyccr91-83Tap [facility] SystemComment on above:Performed By: #### CBC #### [facility] [address] [place] [address] Dr. Ashlie Hassanon gap [Moles/Vol]12.1 mmol/LNormalThe [facility] Comment on above:Performed By: #### CBC #### [facility] [address] [place] [address] Dr. Ashlie HillsAST [Catalytic activity/Vol]9 U/LCritically qsv27-53Itk [facility] SystemComment on above:Performed By: #### CBC #### [facility] [address] [place] [address] Dr. Ashlie HillsBilirubin [Mass/Vol]0.4 mg/dLNormal0.2-1.0[facility] Comment on above:Performed By: #### CBC #### [facility] [address] [place] [address] Dr. Ashlie HillsCalcium [Mass/Vol]9.0 mg/dLNormal8.5-10.1[facility] Comment on above:Performed By: #### CBC #### [facility] [address] [place] [address] Dr. Ashlie HillsChloride [Moles/Vol]105 mmol/OMqkubx27-822Fhi [facility] Comment on above:Performed By: #### CBC #### [facility] [address] [address] [address] Ashlie HillsCO2 [Moles/Vol]30.7 mmol/YFvwzbe26.0-32.0[facility] Comment on above:Performed By: #### CBC #### [facility] [address] [place] [address] Dr. Ashlie HillsCreatinine [Mass/Vol]0.77 mg/dLNormal0.55-1.02The [facility] SystemComment on above:Performed By: #### CBC #### [facility] [address] [place] [address] Dr. Dailey ChangEGFR-AF BOTSWANAN>60Normal>=60The [facility] SystemComment on above:Performed By: #### CBC #### [facility] [address] [place] [address] Dr. Ashlie GrahamGFR-NON AF BOTSWANAN>60Normal>=60The [facility] SystemComment on above:Performed By: #### CBC #### [facility] [address] [place] [address] Dr. Ashlie HillsGlobulin (S) [Mass/Vol]4.8 g/dLNormalThe [facility] SystemComment on above:Performed By: #### CBC #### [facility] [address] [place] [address] Dr. Ashlie HillsGlucose [Mass/Vol]162 mg/dLCritically sjbu91-068Fax [facility] SystemComment on above:Performed By: #### CBC #### [facility] [address] [place] [address] Dr. Ashlie HillsPotassium [Moles/Vol]3.8 mmol/LNormal3.5-5.1[facility] Comment on above:Performed By: #### CBC #### [facility] [address] [place] [address] Dr. Ashlie HillsProtein [Mass/Vol]7.8 g/dLNormal6.4-8.2[facility] Comment on above:Performed By: #### CBC #### [facility] [address] [place] [address] Dr. Ashlie Jimenezdium [Moles/Vol]144 mmol/ASoysoe413-608Zpu [facility] Comment on above:Performed By: #### CBC #### [facility] [address] [place] [address] Dr. Ashlie Jones nitrogen [Mass/Vol]24.0 mg/dLCritically high7.0-18.0The [facility] SystemComment on above:Performed By: #### CBC #### [facility] [address] [place] [address] Dr. Ashlie Jones nitrogen/Creatinine [Mass ratio]31.2 mg/mgNormalThe [facility] Health SystemComment on above:Performed By: #### CBC #### [facility] [address] [place] [address] Dr. Ashlie Chinchilla AUTO DIFFon [id number] #0.1 103/ulNormal0.0-0.1The [facility] SystemComment on above:Performed By: #### CBC #### [facility] [address] [place] [address] Dr. Ashlie HillsBasophils/100 WBC (Bld)0.6 %Normal0.2-2.0[facility] Comment on above:Performed By: #### CBC #### [facility] [address] [place] [address] Dr. Ashlie Mcintosh #0.3 103/ulNormal0.0-0.7The [facility] SystemComment on above: Performed By: #### CBC #### [facility] [address] [place] [address] Dr. Ashlie Grahamosinophils/100 WBC (Bld)2.1 %Normal0.9-7.0The [facility] Comment on above:Performed By: #### CBC #### [facility] [address] [place] [address] Dr. Ashlie Grahamrythrocyte distribution width (RBC) [Ratio]15.9 %Critically high 11.0-15.0The [facility] SystemComment on above:Performed By: #### CBC #### [facility] [address] [address] [address] Ashlie HillsHematocrit (Bld) [Volume fraction]51.8 %Critically high36.0-48.0 The [facility] Health SystemComment on above:Performed By: #### CBC #### [facility] [address] [place] [address] Dr. Ashlie HillsHemoglobin (Bld) [Mass/Vol]16.6 g/dLCritically high12.0-16.0The [facility]alyer HospitalComment on above:Performed By: #### CBC #### [facility] [address] [place] [address] Dr. Ashlie HillsIG #0.03 10e3/ulNormal0.00-0.03The [facility] SystemComment on above:Performed By: #### CBC #### [facility] [address] [place] [address] Dr. Ashlie Hunter %0.2 %Normal0.0-0.5The [facility] SystemComment on above: Performed By: #### CBC #### [facility] [address] [place] [address] Dr. Ashlie Swenson #3.9 103/ulCritically high1.2-3.8The [facility] Comment on above:Performed By: #### CBC #### [facility] [address] [place] [address] Dr. Ashlie Jademphocytes/100 WBC (Bld)31.7 %Aohtzr91.5-60.0The [facility] SystemComment on above:Performed By: #### CBC #### [facility] [address] [place] [address] Dr. Ashlie GhoshUAL DIFF REQNONormalThe [facility] Health SystemComment on above: Performed By: #### CBC #### [facility] [address] [place] [address] Dr. Ashlie Granger (RBC) [Entitic mass]27.9 mzYuspdh38.7-34.0The [facility] SystemComment on above:Performed By: #### CBC #### [facility] [address] [address] [address] Ashlie Mckeon (RBC) [Mass/Vol]32.0 g/dUOvfzij27.9-35.2The [facility] SystemComment on above:Performed By: #### CBC #### [facility] [address] [place] [address] Dr. Ashlie MckeonV (RBC) [Entitic vol]87.1 gFBthqej32.0-99.0The [facility]alyer HospitalComment on above:Performed By: #### CBC #### [facility] [address] [place] [address] Dr. Ashlie Killian #0.7 103/ulNormal0.3-0.8The [facility] SystemComment on above:Performed By: #### CBC #### [facility] [address] [place] [address] Dr. Ashlie Palominoocytes/100 WBC (Bld)5.8 %Normal1.7-12.0[facility] Comment on above:Performed By: #### CBC #### [facility] [address] [place] [address] Dr. Ashlie Olsen #7.3 103/ulCritically high1.4-6.5[facility] Comment on above:Performed By: #### CBC #### [facility] [address] [place] [address] Dr. Ashlie Steinutrophils/100 WBC (Bld)59.6 %Gdkiue39.0-75.0The [facility] SystemComment on above:Performed By: #### CBC #### [facility] [address] [place] [address] Dr. Ashlie Lantigualet mean volume (Bld) [Entitic vol]11.7 fLNormal9.5-13.5The [facility] SystemComment on above:Performed By: #### CBC #### [facility] [address] [place] [address] Dr. Ashlie HillsPLT117 103/ulCritically rwe605-687Kzu [facility] SystemComment on above:Performed By: #### CBC #### [facility] [address] [place], [place] [address] Dr. Ashlie HillsRBC5.95 106/ulCritically high4.20-5.40The [facility] Comment on above:Performed By: #### CBC #### [facility] [address] [place], [place] [address] Dr. Ashlie HillsWBC12.3 103/ulCritically high4.0-11.0The [facility] SystemComment on above:Performed By: #### CBC #### [facility] [address] [place], [place] [address] Dr. Ashlie HillsCT ABD/PELV W CONon [id number] ABD/PELV W CONEXAM: CT ABD/PELV W CON [...] Electronically authenticated by: RICCO PICKARD Date: 2022-10-05 13:13No[facility] URINE PROFILEon 61-04-4705Bdsirjihl Ql (U)NegativeNormal NEGATIVEThe [facility] Health SystemComment on above:Performed By: #### POCGLUC #### [facility] [address] [address] [address] Ashlie Leungarity (U)CLEARNormalCLEARTrinity Health System [facility] Medical CenterComment on above: Performed By: #### POCGLUC #### [facility] [address] [address] [address] Ashlie Prescottlor (U)YELLOWNormalYELLOWTrinity Health System Twin City Medical CenterComment on above: Performed By: #### POCGLUC #### [facility] [address] [address] [address] Ashlie Clayton micrscopic examination will be performed if indicated. NormalThe Memorial Health SystemComment on above:Performed By: #### POCGLUC #### [facility] [address] [address] [address] Ashlie Rutledgeose Ql (U)NegativeNormalNEGATIVETrinity Health System [facility] City Medical CenterComment on above:Performed By: #### POCGLUC #### [facility] [address] [address] [address] Ashlie HillsHemoglobin Ql (U)NegativeNormalNEGATIVEKettering Health Dayton on above:Performed By: #### POCGLUC #### [facility] [address] [address] [address] Ashlie HillsKetones Ql (U)NegativeNormalNEGATIVETrinity Health System [facility] CenterComment on above:Performed By: #### POCGLUC #### [facility] [address] [address] [address] Ashlie HillsLEUKOCYTESNegativeNormalNEGATIVETrinity Health System [facility] Medical CenterComment on above:Performed By: #### POCGLUC #### [facility] [address] [address] [address] Ashlie HillsNitrite Ql (U)NegativeNormalNEGATIVETrinity Health System [facility] City Medical CenterComment on above:Performed By: #### POCGLUC #### [facility] [address] [address] [address] Ashlie HillspH (U)6.0 [pH]Normal5-9[facility] CenterComment on above: Performed By: #### POCGLUC #### [facility] [address] [address] [address] Ashlie HillsProtein (U) [Mass/Vol]100 mg/dLAbnormalNEGATIVE/ TRACEThe [facility] Health SystemComment on above:Performed By: #### POCGLUC #### [facility] [address] [place] [address] Dr. Ashlie HillsSPEC GRAVITY1.289Pkuyau3.005-<=1.025The [facility] Health SystemComment on above:Performed By: #### POCGLUC #### [facility] [address] [place] [address] Dr. Ashlie Sullivan MICRO INDINDICATEDNormalThMcCullough-Hyde Memorial HospitalComment on above: Performed By: #### POCGLUC #### [facility] [address] [place] [address] Dr. Ashlie HillsUrobilinogen Qn (U)1.0 {Little'U}/dLNormal0.2 - 1.0The [facility] Health SystemComment on above:Performed By: #### POCGLUC #### [facility] [address] [place] [address] Dr. Ashlie HillsLIPASEon 16-54-1349Dpllli [Catalytic activity/Vol]1771.0 U/L Critically high73.0-393.0The [facility] SystemComment on above:Performed By: #### CBC #### [facility] [address] [place] [address] Dr. Ashlie CrossG HCG QUALon 10-19-5729YTJDQYTAK, QUALNegativeNormalNEGATIVE The [facility] Health SystemComment on above:Performed By: #### POCGLUC #### [facility] [address] [place] [address] Dr. Ashlie HillsPROF 14(COMP METB)on 58-85-5667Fnhqknv [Mass/Vol]3.2 g/dL Critically low3.4-5.0The [facility] Health SystemComment on above:Performed By: #### CBC #### [facility] [address] [place] [address] Dr. Ahslie HillsAlbumin/Globulin [Mass ratio]0.7 {ratio}NormalTrinity Health System [facility] City Medical CenterComment on above:Performed By: #### CBC #### [facility] [address] [address] [address] Ashlie Gonzalez [Catalytic activity/Vol]70 U/QCqnymt02-418Oes [facility] SystemComment on above:Performed By: #### CBC #### [facility] [address] [address] [address] Ashlie Chambers [Catalytic activity/Vol]11 U/LCritically zrr55-25Rsv [facility] SystemComment on above:Performed By: #### CBC #### [facility] [address] [address] [address] Ashlie Hassanon gap [Moles/Vol]10.3 mmol/LNormalTrinity Health [facility] Comment on above:Performed By: #### CBC #### [facility] [address] [address] [address] Ashlie HillsAST [Catalytic activity/Vol]11 U/LCritically dvc89-09Smn [facility] SystemComment on above:Performed By: #### CBC #### [facility] [address] [address] [address] Ashlie HillsBilirubin [Mass/Vol]0.9 mg/dLNormal0.2-1.0The [facility] Comment on above:Performed By: #### CBC #### [facility] [address] [address] [address] Ashlie HillsCalcium [Mass/Vol]9.3 mg/dLNormal8.5-10.1[facility] Comment on above:Performed By: #### CBC #### [facility] [address] [address] [address] Ashlie HillsChloride [Moles/Vol]105 mmol/YQhkoaw56-816Xbo [facility] Comment on above:Performed By: #### CBC #### [facility] [address] [address] [address] Ashlie HillsCO2 [Moles/Vol]30.6 mmol/KIdzoke07.0-32.0The [facility] Comment on above:Performed By: #### CBC #### [facility] [address] [address] [address] Ashlie HillsCreatinine [Mass/Vol]0.62 mg/dLNormal0.55-1.02The [facility] SystemComment on above:Performed By: #### CBC #### [facility] [address] [address] [address] Ashlie GrahamGFR-AF BOTSWANAN>60Normal>=60The [facility] SystemComment on above:Performed By: #### CBC #### [facility] [address] [address] [address] Ashlie GrahamGFR-NON AF BOTSWANAN>60Normal>=60The [facility] SystemComment on above:Performed By: #### CBC #### [facility] [address] [address] [address] Ashlie HillsGlobulin (S) [Mass/Vol]4.6 g/dLNormalThe [facility] SystemComment on above:Performed By: #### CBC #### [facility] [address] [address] [address] Ashlie HillsGlucose [Mass/Vol]85 mg/eKVmxtsc27-620QgqTrinity Health System [facility] Comment on above:Performed By: #### CBC #### [facility] [address] [address] [address] Ashlie HillsPotassium [Moles/Vol]3.9 mmol/LNormal3.5-5.1The [facility] Comment on above:Performed By: #### CBC #### [facility] [address] [address] [address] Ashlie HillsProtein [Mass/Vol]7.8 g/dLNormal6.4-8.2The [facility] Comment on above:Performed By: #### CBC #### [facility] [address] [address] [address] Ashlie HillsSodium [Moles/Vol]142 mmol/ZKhnycj274-819YilTrinity Health System [facility] Comment on above:Performed By: #### CBC #### [facility] [address] [address] [address] Ashlie Jones nitrogen [Mass/Vol]12.0 mg/dLNormal7.0-18.0The [facility] on above:Performed By: #### CBC #### [facility] [address] [address] [address] Ashlie Jones nitrogen/Creatinine [Mass ratio]19.4 mg/mgNoACMC Healthcare System GlenbeighComment on above:Performed By: #### CBC #### [facility] [address] [address] [address] Ashlie Recinos MICROSCOPIC ONLYon [id number]E SEEN [facility] CenterComcorewell health [facility] on above:Performed By: #### POCGLUC #### [facility] [address] [address] [address] Ashlie Cortez identified Cx Nom (U)NOT INDICATEDNoSelect Medical Specialty Hospital - Trumbull on above:Performed By: #### POCGLUC #### [facility] [address] [address] [address] Ashlie HillsCASTNONE SEENNormalNONE SEENPeoples Hospital on above:Performed By: #### POCGLUC #### [facility] [address] [address] [address] Ashlie Boyerystals LM Nom (Urine sed)NONE SEENNormalNONE SEENPeoples Hospital on above:Performed By: #### POCGLUC #### [facility] [address] [address] [address] Ashlie Camarathelial cells LM Ql (Urine sed)MODERATEAbnormalNONE SEEN /RARE [facility] on above:Performed By: #### POCGLUC #### [facility] [address] [address] [address] Ashlie SuarezCOUSNONE SEENNogranville medical centerNONE SEENPeoples Hospital on above:Performed By: #### POCGLUC #### [facility] [address] [address] [address] Ashlie HillsPytfdPJJ6-8Fhfhqv9-2HfoPeoples Hospital on above:Performed By: #### POCGLUC #### [facility] [address] [place] [address] Dr. Ashlie HillsWBC0-2AbnormalNONE SEENPeoples Hospital on above: Performed By: #### POCGLUC #### [facility] [address] [place] [address] Dr. Ashlie HillsCovid-19 PCR (CVDGAEBLER CHILDREN'S CENTER)on [id number]-CoV-2 (COVID-19) RNA MADDY+probe Ql (Unsp spec)DetectedAbnormalNOT DETECTEDThe St[facility] on above:Result Comment: This test is not yet approved or cleared by the [place] FDA. When there are no FDA-approved or cleared tests available, and other criteria are met, FDA can make tests available under an emergency access mechanism called an Emergency Use Authorization (EUA). The EUA for this test is supported by the [place] of Health and Human Service's declaration that [...] longer be used).Performed By: #### CVDAGS #### [facility] [address] [place] [address] Dr. Ashlie HillsINFLUENZA A AND B AGon [id number] [facility] on above:Result Comment: Negative for Flu A protein angiten. Infection due to Flu A cannot be ruled out. FluA angiten in the sample may be below the detection limit of the test.Performed By: #### INFLUAB #### [facility] [address] [place] [address] Dr. Ashlie HillsINFLUBNEGHSEE [facility] on above: Result Comment: Negative for Flu B protein antigen. Infection due to Flu B cannot be ruled out. FluB antigen in the sample may be below the detection limit of the test.Performed By: #### INFLUAB #### [facility] [address] [place] [address] Dr. Ashlie Centeno AGNegativeNormalNEGATIVE SEE COMMENTThe [facility] Health SystemComment on above:Performed By: #### INFLUAB #### [facility] [address] [address] [address] Ashlie Shaffer AGNegativeNormalNEGATIVE SEE COMMENTThe [facility] SystemComment on above:Performed By: #### INFLUAB #### [facility] [address] [place] [address] Dr. Ashlie HillsCT ABD/PELV W CONon [id number] ABD/PELV W CONINDICATION: Disorder of adrenal gland [...] dating back to at least 10/21/2018, unchanged. https://www.ncbi.nlm.nih.gov/pmc/articles/LPA6104561/ Electronically authenticated by: COLLIN HUERTAS Date: 2022-07-27 14:56NormVeterans Health AdministrationCREATININEon 99-01-0077Byomdpozno [Mass/Vol]0.81 mg/dLNormal 0.55-1.02The [facility] SystemComment on above:Performed By: #### CBC #### [facility] [address] [place] [address] Dr. Yilan ChangEGFR-AF BOTSWANAN>60Normal>=60The [facility] SystemComment on above:Performed By: #### CBC #### [facility] [address] [place], [place] [address] Dr. Dailey ChangEGFR-NON AF BOTSWANAN>60Normal>=60The [facility] SystemComment on above:Performed By: #### CBC #### [facility] [address] [place], [place] [address] Dr. Dailey ChangCT LOW EXT W CONT LTon [id number] LOW EXT W CONT LTEXAMINATION: CT LOW [...] Electronically authenticated by: PATRICIA VELOZ Date: 2022-07-18 14:[address] [place], [place] [address]XR KNEE LT 1_2 Von [id number] KNEE LT 1_2 VEXAM: XR KNEE LT [...] Electronically authenticated by: HATTIE BAUTISTA Date: 2022-07-18 12:00[facility] HospitalC[facility] (CVDTB)on [id number]-CoV-2 (COVID-19) RNA MADDY+probe Ql (Unsp spec)Not detectedNormalNOT DETECTEDThe [facility] Comment on above:Result Comment: This test is not yet approved or cleared by the [place] FDA. When there are no FDA-approved or cleared tests available, and other criteria are met, FDA can make tests available under an emergency access mechanism called an Emergency Use Authorization (EUA). The EUA for this test is supported by the [place] of Health and Human Service's (HHS's) declaration [...] consistent with SARS-CoV-2.Performed By: #### CBC #### [facility] [address] [place] [address] Dr. Ashlie MonteroNZA A AND B AGon [id number] Fostoria Community HospitalComment on above:Result Comment: Negative for Flu A protein angiten. Infection due to Flu A cannot be ruled out. FluA angiten in the sample may be below the detection limit of the test.Performed By: #### CBC #### [facility] [address] [place] [address] Dr. Ashlie HillsINFLUBNEGProMedica Fostoria Community HospitalComcorewell health [facility] on above: Result Comment: Negative for Flu B protein antigen. Infection due to Flu B cannot be ruled out. FluB antigen in the sample may be below the detection limit of the test.Performed By: #### CBC #### [facility] [address] [place] [address] Dr. Ashlie Centeno AGNegativeNormalNEGATIVE SEE COMMENTThe [facility] on above:Performed By: #### CBC #### [facility] [address] [place] [address] Dr. Ashlie Shaffer AGNegativeNormalNEGATIVE SEE COMMENTThe [facility] on above:Performed By: #### CBC #### [facility] [address] [place] [address] Dr. Ashlie HillsPOINT OF CARE GLUCOSEon [id number] [Mass/Vol]108 mg/dL Critically qirp16-332Ezw [facility] SystemComcorewell health [facility] on above:Performed By: #### CBC #### [facility] [address] [place] [address] Dr. Ashlie HillsANA by IFAon 95-67-1031Iuanxrfriru Antibodies, IFANegativeNormal The [facility] Health SystemComcorewell health [facility] on above:Result Comment: Negative <1:80 Borderline 1:80 Positive >1:80 ICAP nomenclature: AC-0 For more information about Hep-2 cell patterns use ANApatterns.org, the official website for the International Consensus on Antinuclear Antibody (RAGHU) Patterns (ICAP).Performed By: #### ANAIFA #### [facility] [address] [place] [address] Dr. Ashlie HillsIMMUNOFIXATION (TREVON), URINEon [id number] Interpretation:U CommentNormalThe St[facility] on above:Result Comment: No monoclonality detected.Performed By: #### CBC #### [facility] [address] [place] [address] Dr. Ashlie HillsIMMUNOFIXATION(TREVON),PROTEIN ELEC(PE),FREon [id number] [Mass/Vol]3.0 g/dLNormal2.9-4.4The [facility] on above:Performed By: #### INFLUAB #### [facility] [address] [place] [address] Dr. Ashlie HillsAlbumin/Globulin [Mass ratio]0.8 {ratio}Normal0.7-1.7The [facility] Health SystemComment on above:Performed By: #### INFLUAB #### [facility] [address] [place] [address] Dr. Ashlie HillsKggewQgxbf-1-Rnenjbnb9.3 g/dLNormal0.0-0.4The [facility] Health SystemComment on above:Performed By: #### INFLUAB #### [facility] [address] [place] [address] Dr. Ashlie HillsYrxveVwlub-1-Unbrxhon4.0 g/dLNormal0.4-1.0The [facility] SystemComment on above:Performed By: #### INFLUAB #### [facility] [address] [place] [address] Dr. Ashlie HillsBeta Globulin1.8 g/dLCritically high0.7-1.3TCleveland Clinic [facility] Comment on above:Performed By: #### INFLUAB #### [facility] [address] [place] [address] Dr. Ashlie Skelton White Water Lt Chains,S45.2 mg/LCritically high3.3-19.4The [facility] Health SystemComment on above:Performed By: #### INFLUAB #### [facility] [address] [place] [address] Dr. Ashlie Skelton Lambda Lt Chains,S40.3 mg/LCritically high5.7-26.3The [facility] Health SystemComment on above:Performed By: #### INFLUAB #### [facility] [address] [place] [address] Dr. Ashlie HillsGamma Globulin0.8 g/dLNormal0.4-1.8The Memorial Health SystemComment on above:Performed By: #### INFLUAB #### [facility] [address] [place] [address] Dr. Ashlie HillsGlobulin (S) [Mass/Vol]3.9 g/dLNormal2.2-3.9[facility] Comment on above:Performed By: #### INFLUAB #### [facility] [address] [place] [address] Dr. Ashlie HillsImmunofixation Result, SerumCommentNoACMC Healthcare System [facility] Comment on above:Result Comment: No monoclonality detected.Performed By: #### INFLUAB #### [facility] [address] [place] [address] Dr. Ashlie HillsImmunoglobulin A, Qn, Wikbp158 mg/dLCritically wdht17-616Nvv [facility] SystemComment on above:Performed By: #### INFLUAB #### [facility] [address] [place] [address] Dr. Ashlie HillsImmunoglobulin G, Qn, Dhpid366 mg/iBHkmsql453-7309Ueg [facility] SystemComcorewell health [facility] on above:Performed By: #### INFLUAB #### [facility] [address] [place] [address] Dr. Ashlie HillsImmunoglobulin M, Qn, Serum39 mg/xENcelfq21-157Ogr [facility] Health SystemComment on above:Performed By: #### INFLUAB #### [facility] [address] [place] [address] Dr. Ashlie HillsKappa/Lambda Ratio, S1.30Abnnsq5.26-1.65[facility] Comment on above:Performed By: #### INFLUAB #### [facility] [address] [place] [address] Dr. Ashlie HillsM-SpikeNot ObservedNormalNot ObservedThe Memorial Health SystemComment on above:Performed By: #### INFLUAB #### [facility] [address] [place] [address] Dr. Ashlie Bradford.NormalThe [facility] Health SystemComment on above:Performed By: #### INFLUAB #### [facility] [address] [place] [address] Dr. Ashlie Fletcher note:CommentKettering Health Washington Township on above: Result Comment: Protein electrophoresis scan will follow via computer, mail, or club lounge attendant delivery.Performed By: #### INFLUAB #### [facility] [address] [place] [address] Dr. Ashlie HillsProtein [Mass/Vol]6.9 g/dLNormal6.0-8.5The [facility] Comment on above:Performed By: #### INFLUAB #### [facility] [address] [place] [address] Dr. Ashlie HillsC-PEPTIDE, SERUMon [id number]-Peptide, Serum3.1 ng/mLNormal 1.1-4.4The [facility] Health SystemComment on above:Result Comment: C-Peptide reference interval is for fasting patients.Performed By: #### CPEPT #### [facility] [address] [place] [address] Dr. Ashlie Sandoval B SURFACE ANTIGEN SCREENon 74-83-4885VPgMj ScreenNegative NormalNegativeThe Memorial Health SystemComment on above:Performed By: #### CBC #### [facility] [address] [place] [address] Dr. Ashlie ReavesPATITIS C VIRUS AB W/ REFLEX QUANTon [id number] AB<0.1Normal 0.0-0.9The [facility] Health SystemComment on above:Performed By: #### INFLUAB #### [facility] [address] [place] [address] Dr. Ashlie HillsInterpretation:CommentNormalThMcCullough-Hyde Memorial HospitalComment on above:Result Comment: Negative Not infected with HCV, unless recent infection is suspected or other evidence exists to indicate HCV infection.Performed By: #### INFLUAB #### [facility] [address] [place] [address] Dr. Ashlie HillsMICROALBUMIN/ CREATININE RATIOon [id number], Lmwqe324.4 ug/mLNormalNot Estab.The [facility] Health SystemComment on above:Performed By: #### CBC #### [facility] [address] [place] [address] Dr. Ashlie HillsAlbumin/ Creatinine Nbsie930 mg/g creatCritically high0-29The [facility] Health SystemComment on above:Result Comment: Normal: 0 - 29 Moderately increased: 30 - 300 Severely increased: >300Performed By: #### CBC #### [facility] [address] [address] [address] Ashlie HillsCreatinine, Oczhs259.9 mg/dLNormalNot Estab.[facility] Comment on above:Performed By: #### CBC #### [facility] [address] [address] [address] Ashlie Jerome D 25-OH LABCORPon 15-81-5078Pteqyhe D, 25-Hydroxy<4.0 Critically low30.0-100.0The Memorial Health SystemComment on above:Result Comment: Vitamin D deficiency has been defined by the [facility] and an Endocrine Society practice guideline as a level of serum 25-OH vitamin D less than 20 ng/mL (1,2). The Endocrine Society went on to further define vitamin D insufficiency as a level between 21 and 29 ng/mL (2). 1. IOM ([facility]). 2010. Dietary reference intakes for calcium and D. [place]: The National Academies Press. 2. Lynda MF, [place], Leandra LOPEZ, et al. Evaluation, treatment, and prevention of vitamin D deficiency: an Endocrine Society clinical practice guideline. JCEM. 2010; 96(7):1911-30.Performed By: #### CBC #### [facility] [address] [address] [address] Ashlie HillsGLYCOHEMOGLOBIN A1Con [id number] RECOMMENDATIONSEE BELOWNormal The Memorial Health SystemComment on above:Result Comment: ADA RECOMMENDED LIMIT 4.0 - 6.0 ADA THERAPEUTIC TARGET < 7.0 ACTION SUGGESTED > 7.0Performed By: #### CVDAGS #### [facility] [address] [address] [address] Ashlie HillsGlucose [Mass/Vol]295 mg/dLNormalThe [facility] Health SystemComment on above:Performed By: #### CVDAGS #### [facility] [address] [address] [address] Ashlie HillsHbA1c (Bld) [Mass fraction]11.9 %Critically high4.5-6.2The Memorial Health SystemComment on above:Performed By: #### CVDAGS #### [facility] [address] [place] [address] Dr. Ashlie HillsHEMOGRAM AND PLATELon 90-56-7667Onivvazegr (Bld) [Volume fraction]56.3 %Critically high36.0-48.0The [facility] Health SystemComment on above: Performed By: #### CVDAGS #### [facility] [address] [place] [address] Dr. Ashlie HillsHemoglobin (Bld) [Mass/Vol]18.0 g/dLCritically high12.0-16.0The [facility] Health SystemComment on above:Performed By: #### CVDAGS #### [facility] [address] [place] [address] Dr. Ashlie MckeonH (RBC) [Entitic mass]29.5 tcVjbzfq01.7-34.0The [facility] Health SystemComment on above:Performed By: #### CVDAGS #### [facility] [address] [place] [address] Dr. Ashlie MckeonHC (RBC) [Mass/Vol]32.0 g/bXHofckw38.9-35.2The [facility] Health SystemComment on above:Performed By: #### CVDAGS #### [facility] [address] [place] [address] Dr. Ashlie MckeonV (RBC) [Entitic vol]92.1 qIUxprxf24.0-99.0The [facility] Health SystemComment on above:Performed By: #### CVDAGS #### [facility] [address] [place] [address] Dr. Ashlie HillsPLT123 103/ulCritically erz219-602Ktb [facility] SystemComment on above:Performed By: #### CVDAGS #### [facility] [address] [place] [address] Dr. Ashlie HillsRBC6.11 106/ulCritically high4.20-5.40The [facility] Comment on above:Performed By: #### CVDAGS #### [facility] [address] [place] [address] Dr. Ashlie HillsWBC16.4 103/ulCritically high4.0-11.0The [facility] Health SystemComment on above:Performed By: #### CVDAGS #### [facility] [address] [place] [address] Dr. Ashlie OmerID PROFILEon [id number]-HDL RATIO NORMSEE BELOWKnox Community HospitalComment on above:Result Comment: 3.3 - 4.4 LOW RISK 4.4 - 7.1 AVERAGE RISK 7.1 - 11.0 MODERATE RISK >11.0 HIGH RISKPerformed By: #### CVDAGS #### [facility] [address] [place] [address] Dr. Ashlie Lopezesterol [Mass/Vol]159 mg/dLNormal<=200The [facility] Comment on above:Performed By: #### CVDAGS #### [facility] [address] [place] [address] Dr. Ashlie HillsCholesterol in HDL [Mass/Vol]40 mg/uCMdyahz00-19Bqc [facility] SystemComment on above:Performed By: #### CVDAGS #### [facility] [address] [place] [address] Dr. Ashlie HillsCholesterol in LDL [Mass/Vol]81.8 mg/dLKnox Community HospitalComment on above:Performed By: #### CVDAGS #### [facility] [address] [place] [address] Dr. Ashlie Villa.total/Cholesterol in HDL [Mass ratio]4.0 {ratio} NormalThe Memorial Health SystemComment on above:Performed By: #### CVDAGS #### [facility] [address] [place] [address] Dr. Ashlie Potts NORMAL> or = 60 mg/dl - LOW CARDIOVASCULAR RISK <40 mg/dl - HIGH CARDIOVASCULAR RISKKnox Community HospitalComment on above:Performed By: #### CVDAGS #### [facility] [address] [place] [address] Dr. Ashlie Desai CALC NORMALSEE BELOWKnox Community HospitalComment on above:Result Comment: <100 mg/dl OPTIMAL 100 - 129 mg/dl NEAR OR ABOVE OPTIMAL 130 - 159 mg/dl BORDERLINE HIGH 160 - 189 mg/dl HIGH >190 mg/dl VERY HIGH Performed By: #### CVDAGS #### [facility] [address] [place] [address] Dr. Ashlie HillsTriglyceride [Mass/Vol]186 mg/dLCritically high<=150The [facility] Health SystemComment on above:Performed By: #### CVDAGS #### [facility] [address] [address] [address] Ashlie HillsVLDL CALC37.2 mg/dLKnox Community HospitalComment on above: Performed By: #### CVDAGS #### [facility] [address] [place] [address] Dr. Ashlie HillsRENCHAUNCEY FUNCTION PANELon 35-83-8740Vxpvzkp [Mass/Vol]3.1 g/dL Critically low3.4-5.0[facility] CenterComment on above:Performed By: #### CBC #### [facility] [address] [place] [address] Dr. Ashlie HillsCalcium [Mass/Vol]9.2 mg/dLNormal8.5-10.1[facility] Comment on above:Performed By: #### CBC #### [facility] [address] [place] [address] Dr. Ashlie HillsChloride [Moles/Vol]102 mmol/MPvnnkt34-492Kxm [facility] Comment on above:Performed By: #### CBC #### [facility] [address] [address] [address] Ashlie HillsCO2 [Moles/Vol]31.9 mmol/FQdqbwg12.0-32.0The [facility] Comment on above:Performed By: #### CBC #### [facility] [address] [place] [address] Dr. Ashlie HillsCreatinine [Mass/Vol]0.68 mg/dLNormal0.55-1.02[facility] CenterComment on above:Performed By: #### CBC #### [facility] [address] [address] [address] Ashlie GrahamGFR-AF BOTSWANAN>60Normal>=60The [facility] Health SystemComment on above:Performed By: #### CBC #### [facility] [address] [address] [address] Ashlie GrahamGFR-NON AF BOTSWANAN>60Normal>=60The [facility] Health SystemComment on above:Performed By: #### CBC #### [facility] [address] [address] [address] Ashlie HillsGlucose [Mass/Vol]131 mg/dLCritically vmyz12-843Got [facility] SystemComment on above:Performed By: #### CBC #### [facility] [address] [address] [address] Ashlie HillsPhosphate [Mass/Vol]4.0 mg/dLNormal2.6-4.7The [facility] Comment on above:Performed By: #### CBC #### [facility] [address] [address] [address] Ashlie HillsPotassium [Moles/Vol]4.0 mmol/LNormal3.5-5.1The [facility] Comment on above:Performed By: #### CBC #### [facility] [address] [address] [address] Ashlie HillsSodium [Moles/Vol]141 mmol/TDvplge035-567Luy [facility] Comment on above:Performed By: #### CBC #### [facility] [address] [address] [address] Ashlie HillsUrea nitrogen [Mass/Vol]17.0 mg/dLNormal7.0-18.0The [facility] SystemComment on above:Performed By: #### CBC #### [facility] [address] [address] [address] Ashlie Vaughn RANDOM W/MICROSCOPICon [id number] SEENNormalNONE SEENThe [facility] Health SystemComment on above:Performed By: #### INFLUAB #### [facility] [address] [address] [address] Ashlie HillsBilirubin Ql (U)NegativeNormalNEGEast [facility] Comment on above:Performed By: #### INFLUAB #### [facility] [address] [address] [address] Ashlie HillsCASTNONE SEENNormalNONE SEENTrinity Health System [facility] Medical CenterComment on above:Performed By: #### INFLUAB #### [facility] [address] [address] [address] Ashlie HillsClarity (U)CLEARNormalCLEARTrinity Health System [facility] Medical CenterComment on above: Performed By: #### INFLUAB #### [facility] [address] [address] [address] Ashlie HillsColor (U)YELLOWNormalYELLOWTrinity Health System [facility] City Medical CenterComment on above: Performed By: #### INFLUAB #### [facility] [address] [address] [address] Ashlie HillsCrystals LM Nom (Urine sed)NONE SEENNormalNONE SEENTrinity Health System [facility] City Medical CenterComment on above:Performed By: #### INFLUAB #### [facility] [address] [address] [address] Dailey ChangEpithelial cells LM Ql (Urine sed)FEWAbnormalNONE SEEN /RARETrinity Health System [facility] Medical CenterComment on above:Performed By: #### INFLUAB #### [facility] [address] [address] [address] Ashlie HillsGlucose Ql (U)NegativeNormalNEGATIVETrinity Health System [facility] Medical CenterComment on above:Performed By: #### INFLUAB #### [facility] [address] [place] [address] Dr. Ashlie HillsHemoglobin Ql (U)NegativeNormalNEGEast [facility] Comment on above:Performed By: #### INFLUAB #### [facility] [address] [address] [address] Ashlie HillsKetones Ql (U)NegativeNormalNEGATIVESumma Health W[facility] SystemComment on above:Performed By: #### INFLUAB #### [facility] [address] [address] [address] Ashlie HillsLEUKOCYTESNegativeNormalNEGATIVEThe [facility] Health SystemComment on above:Performed By: #### INFLUAB #### [facility] [address] [place] [address] Dr. Ashlie HillsMUCOUSNONE SEENNormalNONE SEENThe [facility] SystemComment on above:Performed By: #### INFLUAB #### [facility] [address] [place] [address] Dr. Ashlie HillsNitrite Ql (U)NegativeNormalNEGATIVEThe [facility] Health SystemComment on above:Performed By: #### INFLUAB #### [facility] [address] [place] [address] Dr. Ashlie HillspH (U)5.5 [pH]Normal5-9The [facility] SystemComment on above: Performed By: #### INFLUAB #### [facility] [address] [place] [address] Dr. Ashlie HillsQbctjAJH6-3Xuweis9-7Mpa [facility] on above:Performed By: #### INFLUAB #### [facility] [address] [place] [address] Dr. Ashlie HillsSPEC GRAVITY>=1.113Iemfnoda5.005-<=1.025The [facility] Comment on above:Performed By: #### INFLUAB #### [facility] [address] [place] [address] Dr. Ashlie Vaughn CBJICLH260 mg/dlAbnormalNEGATIVE/ TRACEThe [facility] Comment on above:Performed By: #### INFLUAB #### [facility] [address] [place] [address] Dr. Ashlie Pandyainogen Qn (U)0.2 {Little'U}/dLNormal0.2 - 1.0The [facility] Health SystemComment on above:Performed By: #### INFLUAB #### [facility] [address] [address] [address] Ashlie BhaktaBCNONTracey SEENNormalNONE SEENThe [facility] SystemComment on above: Performed By: #### INFLUAB #### [facility] [address] [place] [address] Dr. Ashlie Christine ACID SERUMon 50-02-8309Vbubw [Mass/Vol]5.0 mg/dLNormal 2.6-6.0The Salyer HospitalComment on above:Performed By: #### INFLUAB #### [facility] [address] [place] [address] Dr. Ashlie Recinos T PROTEIN CREAT RATIOon 06-28-8916Febuyll (U) [Mass/Vol] 77.9 mg/dLCritically high<=12.0The [facility] SystemComment on above:Performed By: #### CVDAGS #### [facility] [address] [place] [address] Dr. Ashlie Sullivan PROT CREAT RAT0.44NormalThe [facility] Health SystemComment on above: Performed By: #### CVDAGS #### [facility] [address] [place] [address] Dr. Ashlie Recinos KLOFQ720.15 mg/aGMelgkp45.00-300.00The [facility] Comment on above:Performed By: #### CVDAGS #### [facility] [address] [place] [address] Dr. Ashlie HillsCULTURE URINEon 53-01-6672GIHWRMF URINECulture Observations: GREATER THAN TWO ORGANISMS PRESENT, HEAVILY MIXED. PLEASE RESUBMIT CLEAN CATCH MID-STREAM URINE IF CLINICALLY INDICATED.NormalThe [facility] Health SystemComment on above:Performed By: #### INFLUAB #### [facility] [address] [place] [address] Dr. Ashlie VernonC AUTO DIFFon 39-77-2242VCIC #0.1 103/ulNormal0.0-0.1The [facility] Health SystemComment on above:Performed By: #### CBC #### [facility] [address] [place] [address] Dr. Ashlie HillsBasophils/100 WBC (Bld)0.5 %Normal0.2-2.0The [facility] Comment on above:Performed By: #### CBC #### [facility] [address] [address] [address] Ashlie Mcintosh #0.4 103/ulNormal0.0-0.7The [facility] Health SystemComment on above: Performed By: #### CBC #### [facility] [address] [address] [address] Ashlie Grahamosinophils/100 WBC (Bld)2.4 %Normal0.9-7.0The [facility] Comment on above:Performed By: #### CBC #### [facility] [address] [place] [address] Dr. Ashlie Grahamrythrocyte distribution width (RBC) [Ratio]14.1 %Chujfl34.0-15.0 [facility] CenterComment on above:Performed By: #### CBC #### [facility] [address] [place] [address] Dr. Ashlie HillsHematocrit (Bld) [Volume fraction]55.9 %Critically high36.0-48.0 The [facility] Health SystemComment on above:Performed By: #### CBC #### [facility] [address] [place] [address] Dr. Ashlie HillsHemoglobin (Bld) [Mass/Vol]17.9 g/dLCritically high12.0-16.0The [facility] SystemComment on above:Performed By: #### CBC #### [facility] [address] [place] [address] Dr. Ashlie Hunter #0.06 10e3/ulCritically high0.00-0.03The [facility] Comment on above:Performed By: #### CBC #### [facility] [address] [address] [address] Ashlie Hunter %0.4 %Normal0.0-0.5The [facility] Health SystemComment on above: Performed By: #### CBC #### [facility] [address] [address] [address] Ashlie Swenson #5.8 103/ulCritically high1.2-3.8The [facility] Comment on above:Performed By: #### CBC #### [facility] [address] [address] [address] Ashlie Jademphocytes/100 WBC (Bld)35.4 %Zvvumy94.5-60.0The [facility] SystemComment on above:Performed By: #### CBC #### [facility] [address] [place] [address] Dr. Ashile Marie DIFF REQNONormalThe [facility] Health SystemComment on above: Performed By: #### CBC #### [facility] [address] [place] [address] Dr. Ashlie Mckeon (RBC) [Entitic mass]29.4 pcIkqfdr82.7-34.0The [facility] Health SystemComment on above:Performed By: #### CBC #### [facility] [address] [place] [address] Dr. Ashlie Mckeon (RBC) [Mass/Vol]32.0 g/nQDqcfcf72.9-35.2The [facility] Health SystemComment on above:Performed By: #### CBC #### [facility] [address] [place] [address] Dr. Ashlie Mckeon (RBC) [Entitic vol]91.8 aPIhwvhx74.0-99.0The [facility] SystemComment on above:Performed By: #### CBC #### [facility] [address] [place] [address] Dr. Ashlie Killian #0.8 103/ulNormal0.3-0.8The [facility] SystemComment on above:Performed By: #### CBC #### [facility] [address] [place] [address] Dr. Ashlie Palominoocytes/100 WBC (Bld)4.8 %Normal1.7-12.0[facility] Comment on above:Performed By: #### CBC #### [facility] [address] [address] [address] Ashlie SteinUT #9.3 103/ulCritically high1.4-6.5The [facility] Comment on above:Performed By: #### CBC #### [facility] [address] [address] [address] Ashlie Steinutrophils/100 WBC (Bld)56.5 %Rgzdhf88.0-75.0The [facility] Health SystemComment on above:Performed By: #### CBC #### [facility] [address] [address] [address] Ashlie Lantigualet mean volume (Bld) [Entitic vol]12.9 fLNormal9.5-13.5The [facility] Health SystemComment on above:Performed By: #### CBC #### [facility] [address] [place] [address] Dr. Ashlie HillsPLT127 103/ulCritically xwq318-594Ngv [facility] SystemComment on above:Performed By: #### CBC #### [facility] [address] [address] [address] Ashlie HillsRBC6.09 106/ulCritically high4.20-5.40The [facility] Comment on above:Performed By: #### CBC #### [facility] [address] [address] [address] Ashlie HillsWBC16.4 103/ulCritically high4.0-11.0The [facility] Health SystemComment on above:Performed By: #### CBC #### [facility] [address] [place] [address] Dr. Ashlie HillsCT ABD/PELVIS WO CONon [id number] ABD/PELVIS WO CON Begin Addendum #1 Mildly [...] without diverticulitis. Severe right hip degenerative change.NormalThe [facility] URINE PROFILEon 16-37-0578Movkpafjv Ql (U) NegativeNormalNEGATIVETrinity Health System [facility] Medical CenterComment on above:Performed By: #### ERUR, UMICRO #### [facility] [address] [address] [address] Ashlie Chilel (U)CLEARNormalCLEARTrinity Health System [facility] Medical CenterComment on above: Performed By: #### ERUR, UMICRO #### [facility] [address] [address] [address] Ashlie Roberts (U)DK. ORANGEAbnormalYELLOWTrinity Health System [facility] City Medical CenterComment on above:Performed By: #### ERUR, UMICRO #### [facility] [address] [address] [address] Ashlie Clayton micrscopic examination will be performed if indicated. NormalTrinity Health System Twin City Medical CenterComment on above:Performed By: #### OBED, UMICRO #### [facility] [address] [address] [address] Ashlie HillsGlucose Ql (U)250 mg/dlAbnormalUC Health Comment on above:Performed By: #### KRISTINAR, UMICRO #### [facility] [address] [address] [address] Ashlie HillsHemoglobin Ql (U)[facility] BaptistrmalNEGEast [facility] Comment on above:Performed By: #### ERUR, UMICRO #### [facility] [address] [address] [address] Ashlie HillsKetones Ql (U)NegativeNormalNEGATIVETrinity Health System [facility] Medical CenterComment on above:Performed By: #### ERUR, UMICRO #### [facility] [address] [address] [address] Ashlie HillsLEUKOCYTESNegativeNormalNEGEast [facility] City HospitalComment on above:Performed By: #### ERUR, UMICRO #### [facility] [address] [address] [address] Ashlie HillsNitrite Ql (U)NegativeNormalNEGATIVETrinity Health System [facility] Medical CenterComment on above:Performed By: #### ERUR, UMICRO #### [facility] [address] [place] [address] Dr. Ashlie HillspH (U)5.0 [pH]Normal5-9The [facility] SystemComment on above: Performed By: #### OBED UMICRO #### [facility] [address] [place] [address] Dr. Ashlie HillsProtein (U) [Mass/Vol]100 mg/dLAbnormalNEGATIVE/ TRACEThe [facility] Health SystemComment on above:Performed By: #### OBED UMICRO #### [facility] [address] [place] [address] Dr. Ashlie HillsSPEC GRAVITY>=1.472Ptzvagor5.005-<=1.025The [facility] Comment on above:Performed By: #### OBED UMICRO #### [facility] [address] [place] [address] Dr. Ashlie HillsUR MICRO INDINDICATEDNormalThe Memorial Health SystemComment on above: Performed By: #### OBED UMICRO #### [facility] [address] [place] [address] Dr. Ashlie Metzbilinogen Qn (U)1.0 {Little'U}/dLNormal0.2 - 1.0The Memorial Health SystemComment on above:Performed By: #### OBED UMICRO #### [facility] [address] [place] [address] Dr. Ashlie HillsPROF CHEM 8 (BAS METB)on 52-73-3690Qlpkw gap [Moles/Vol]12.1 mmol/LNormalThe Memorial Health SystemComment on above:Performed By: #### INFLUAB #### [facility] [address] [place] [address] Dr. Ashlie HillsCalcium [Mass/Vol]9.0 mg/dLNormal8.5-10.1[facility] Comment on above:Performed By: #### INFLUAB #### [facility] [address] [place] [address] Dr. Ashlie HillsChloride [Moles/Vol]101 mmol/XCzktoq16-133Juo [facility] Comment on above:Performed By: #### INFLUAB #### [facility] [address] [place] [address] Dr. Ashlie HillsCO2 [Moles/Vol]29.1 mmol/ISkbuoz21.0-32.0[facility] Comment on above:Performed By: #### INFLUAB #### [facility] [address] [address] [address] Ashlie HillsCreatinine [Mass/Vol]0.86 mg/dLNormal0.55-1.02The Memorial Health SystemComment on above:Performed By: #### INFLUAB #### [facility] [address] [place] [address] Dr. Dailey ChangEGFR-AF BOTSWANAN>60Normal>=60The Memorial Health SystemComment on above:Performed By: #### INFLUAB #### [facility] [address] [place] [address] Dr. Ashlie GrahamGFR-NON AF BOTSWANAN>60Normal>=60The Memorial Health SystemComment on above:Performed By: #### INFLUAB #### [facility] [address] [place] [address] Dr. Ashlie HillsGlucose [Mass/Vol]236 mg/dLCritically bngi88-141Yhb Memorial Health SystemComment on above:Performed By: #### INFLUAB #### [facility] [address] [place] [address] Dr. Ashlie HillsPotassium [Moles/Vol]4.2 mmol/LNormal3.5-5.1[facility] Comment on above:Performed By: #### INFLUAB #### [facility] [address] [place] [address] Dr. Ashlie HillsSodium [Moles/Vol]138 mmol/WSrzwqp894-520Zpg [facility] Comment on above:Performed By: #### INFLUAB #### [facility] [address] [place] [address] Dr. Ashlie HillsUrea nitrogen [Mass/Vol]11.0 mg/dLNormal7.0-18.0[facility] CenterComment on above:Performed By: #### INFLUAB #### [facility] [address] [place] [address] Dr. Ashlie Jones nitrogen/Creatinine [Mass ratio]12.8 mg/mgNoACMC Healthcare System GlenbeighComment on above:Performed By: #### INFLUAB #### [facility] [address] [place] [address] Dr. Ashlie Recinos MICROSCOPIC ONLYon 25-26-4621UKHWIOLWGOROMFvlennnsJAKF SEEN [facility] CenterComcorewell health [facility] on above:Performed By: #### MADELINE CLAYRO #### [facility] [address] [place] [address] Dr. Ashlie Cortez identified Cx Nom (U)INDICATEDKnox Community HospitalComcorewell health [facility] on above:Performed By: #### PEREZ CLAYICRO #### [facility] [address] [place] [address] Dr. Ashlie Thibodeaux SEENNormalNONE SEENTr[facility] Health System [facility] Medical CenterComcorewell health [facility] on above:Performed By: #### MADELINE CLAYRO #### [facility] [address] [place] [address] Dr. Ashlie Banegas LM Nom (Urine sed)NONE SEENNormalNONE SEENTrinity Health System [facility] Medical CenterComcorewell health [facility] on above:Performed By: #### OBED UMICRO #### [facility] [address] [place] [address] Dr. Dailey ChangEpithelial cells LM Ql (Urine sed)MODERATEAbnormalNONE SEEN /RARE The [facility] Health SystemComcorewell health [facility] on above:Performed By: #### OBED UMICRO #### [facility] [address] [place] [address] Dr. Ashlie Guzman SEENNormalNONE SEENTrinity Health System [facility] CenterComcorewell health [facility] on above:Performed By: #### OBED UMICRO #### [facility] [address] [place] [address] Dr. Ashlie HillsOqkvaXXE8-4Jhphbr0-0TicBarnesville Hospitalment on above:Performed By: #### ERUR, UMICRO #### [facility] [address] [place] [address] Dr. Ashlie HillsWBC0-2AbnormalNONE SEENPeoples Hospital on above: Performed By: #### ERUR, UMICRO #### [facility] [address] [address] [address] Ashlie VelásquezASTPRESENTAbnormalNONE SEENBarnesville Hospitalment on above:Performed By: #### ERUR, UMICRO #### [facility] [address] [address] [address] Ashlie Hutchinson RIGHT 1 OR 2 VWS WITH PELVISon 18-11-1343OGU RIGHT 1 OR 2 VWS WITH PELVISUnCleveland Clinic [facility] Department of Radiology [address] [place] [id number] Patient Name: MITZI MACIAS : 1970 [...] MRI. Electronically signed: Pipo Acevedo. Transcribed by: [email or web address], User Resident: Electronically Signed by: PIPO ACEVEDO @ 07/20/2020 03:45 [facility] HospitalComment on above:Order Comment: evaluate Vital Signs Date TimeVital SignValuePerforming GulmxtamvCttzqkzm64-16-8378 17:58-0400Body zljfba850.1 cmLisa Aichholz PARI MUTUEL CLERK-C Work Phone: [phone] [place], [place] [address]14810-22-2025 17:58-0400 Body mass index (BMI) [Ratio]61 kg/m2Lisa Aichholz PARI MUTUEL CLERK-C Work Phone: [phone]10-22-2025 17:58-0400 Body raadvwaalvc49.1 [degF]Mckayla Aichholz PARI MUTUEL CLERK-C Work Phone: [phone])[address]10-22-2025 17:58-0400 Body pgauww445.18 kgLisa Aichholz PARI MUTUEL CLERK-C Work Phone: [phone] [place], [place] [address]10-22-2025 17:58-0400 Diastolic blood ufrclytm13 mm[Hg]Mckayla Aichholz PARI MUTUEL CLERK-C Work Phone: [phone] [place], [place] [address]10-22-2025 17:58-0400 Heart rate84 /minLisa Aichholz PARI MUTUEL CLERK-C Work Phone: [phone])[address]10-22-2025 17:58-0400 Respiratory rate20 /minLisa Aichholz PARI MUTUEL CLERK-C Work Phone: [phone] [place], [place] [address]10-22-2025 17:58-0400 SaO2% (BldA) [Mass fraction]90 %Mckayla Aichholz PARI MUTUEL CLERK-C Work Phone: [phone])[address]10-22-2025 17:58-0400 Systolic blood nfermktw838 mm[Hg]Mckayla Aichholz PARI MUTUEL CLERK-C Work Phone: [phone]09-29-2025 15:37-0400 Body rpycpmyfchl13.1 [degF]Mckayla Aichholz PARI MUTUEL CLERK-C Work Phone: 1([phone])[address]09-29-2025 15:37-0400 Diastolic blood suatovvt95 mm[Hg]Mckayla Aichholz PARI MUTUEL CLERK-C Work Phone: [phone])[address]09-29-2025 15:37-0400 Heart rate81 /minLisa Aichholz PARI MUTUEL CLERK-C Work Phone: [phone] [place], [place] [address]809-29-2025 15:37-0400 Respiratory rate20 /minLisa Aichholz PARI MUTUEL CLERK-C Work Phone: [phone])[address]09-29-2025 15:37-0400 SaO2% (BldA) [Mass fraction]92 %Mckayla Aichholz PARI MUTUEL CLERK-C Work Phone: [phone])[address]09-29-2025 15:37-0400 Systolic blood huuultqo953 mm[Hg]Mckayla Aichholz PARI MUTUEL CLERK-C Work Phone: [phone])[address]07-24-2025 09:48-0400 Body dtuzqv524.2 Reji Souza MD Work Phone: [facility] RehabLkobhdysys37-74-9015 09:48-0400Body mass index (BMI) [Ratio]56.38 kg/m5NriujRain Souza MD Work Phone: noKindred HospitalHfzpcuqerd11-73-2754 09:48-0400Body tngitx991.29 kgRain Souza MD Work Phone: [facility] RehabBefqmjtsll34-77-9285 09:48-0400Diastolic blood keqthnfk06 mm[Hg]Rain Souza MD Work Phone: [facility] RehabAmucxuecfb79-22-3822 09:48-0400Heart rate72 /min Rain Souza MD Work Phone: [facility] RehabEgxmkeytsm94-67-2386 09:48-0400Respiratory rate16 /minRain Souza MD Work Phone: [facility] RehabEfobdcxwum53-21-3635 09:48-4504GrS6% (BldA) [Mass fraction]84 %Rain Souza MD Work Phone: [facility] RehabXrtuljlakv78-33-0771 09:48-0400Systolic blood vjuqowzz312 mm[Hg]Rain Souza MD Work Phone: [facility] RehabRiwapptgbz35-51-6236 18:11-0400Body mass index (BMI) [Ratio]58.64 kg/m2Lisa Wan PARI MUTUEL CLERK Work Phone: [facility] RehabXbbzgvkajx97-97-5225 18:11-0400Body temperature 98.49 [degF]Mckayla Wan PARI MUTUEL CLERK Work Phone: [facility] RehabBanqxmnios44-20-1103 18:11-0400Body .83 kgLisa Juanjosehmariyaz PARI MUTUEL CLERK Work Phone: [facility] RehabZxtjsjuqcq65-46-0394 18:11-0400Diastolic blood zbbiquzg22 mm[Hg]Mckayla Chetz PARI MUTUEL CLERK Work Phone: [facility] RehabHtkwtlbknz86-85-3649 18:11-0400Heart rate81 /min Mckayla Chetz PARI MUTUEL CLERK Work Phone: [place] [address]Wybuehqbfl47-14-0412 18:11-0400Respiratory rate20 /minLisa Chetz PARI MUTUEL CLERK Work Phone: [place] [address]Vquvvnozwc97-08-5792 18:11-3324KnO1% (BldA) [Mass fraction]90 %Mckayla Chetz PARI MUTUEL CLERK Work Phone: [facility] RehabLgdxgusbds97-17-6149 18:11-0400Systolic blood tehavbnx792 mm[Hg]Mckayla Rosenbergz PARI MUTUEL CLERK Work Phone: [facility] RehabBgodufkkwh90-28-7347 10:19-0400Body temperature 98.01 [degF]Mckayla Harshadholz PARI MUTUEL CLERK Work Phone: [facility] RehabDebliijkaq22-86-7954 10:19-0400Diastolic blood dpuarrcn24 mm[Hg]Mckayla Harshadholz PARI MUTUEL CLERK Work Phone: [facility] RehabWtjlmvccke66-14-1831 10:19-0400Heart rate71 /min Mckayla Chetz PARI MUTUEL CLERK Work Phone: [facility] RehabBlczzfbguy12-97-7382 10:19-0400Respiratory rate20 /minLisa Patriciaholz PARI MUTUEL CLERK Work Phone: [facility] RehabNnyjgydugv60-04-6011 10:19-2504SbB0% (BldA) [Mass fraction]88 %Mckayla Rosenbergz PARI MUTUEL CLERK Work Phone: [facility] RehabGlhixhczhq52-20-7541 10:19-0Systolic blood hjeyjffw260 mm[Hg]Mckayla Rosenbergz PARI MUTUEL CLERK Work Phone: [facility] RehabMomgqkvwwr75-85-3949 14:11-0400Body mtaxfd777.2 Brianisa Harshadholz PARI MUTUEL CLERK Work Phone: [facility] RehabCbmxmkkpcu64-28-6438 14:11-0400Body mass index (BMI) [Ratio]56.51 kg/m2Lisa Harshadholz PARI MUTUEL CLERK Work Phone: [facility] RehabMdeylpyjvf04-63-5465 14:11-0400Body temperature 98.71 [degF]Mckayla Patriciaholz PARI MUTUEL CLERK Work Phone: [facility] RehabTbekpumbjs40-27-9663 14:11-0400Body pgnxge450.66 kgLisa Juanjosehholz PARI MUTUEL CLERK Work Phone: [facility] RehabGmeckeqkaf15-31-1741 14:11-0400Diastolic blood ooxjqaze59 mm[Hg]Mckayla Blas PARI MUTUEL CLERK Work Phone: [facility] RehabGxsxshcumq90-42-1693 14:11-0400Heart rate75 /min Mckayla Blas PARI MUTUEL CLERK Work Phone: noKindred HospitalWdjyxvblps66-34-0569 14:11-0400Respiratory rate18 /minLisa Blas PARI MUTUEL CLERK Work Phone: noKindred HospitalMuqylgwllp96-90-2180 14:11-7242LcJ6% (BldA) [Mass fraction]90 %Mckayla Blas PARI MUTUEL CLERK Work Phone: [facility] RehabHjptifmeqk82-28-1547 14:11-0400Systolic blood odmewmhr005 mm[Hg]Mckayla Blas PARI MUTUEL CLERK Work Phone: [facility] RehabHmiyyxuyml01-82-2052 11:21-0400Body vyzffq024.2 Reji Souza MD Work Phone: [facility] RehabNitcogxmbr56-21-3518 11:21-0400Body mass index (BMI) [Ratio]55.91 kg/r5UqrtoRain Souza MD Work Phone: [phone] RehabDgcrzuaoyg25-73-3788 11:21-0400Body uvekro184.93 kgRain Souza MD Work Phone: [facility] RehabNhxggdetgz09-37-8487 11:21-0400Diastolic blood iqcxkrty15 mm[Hg]Rain Souza MD Work Phone: [facility] RehabNkolryzusk43-73-0319 11:21-0400Heart rate70 /min Rain Souza MD Work Phone: [facility] RehabKpjhbinlva20-87-8728 11:21-0400Respiratory rate16 /minRain Souza MD Work Phone: [facility] RehabGvnikngtyg23-50-9496 11:21-7460VeT8% (BldA) [Mass fraction]91 %Rain Souza MD Work Phone: [facility] RehabBufanjazms28-76-5550 11:21-0400Systolic blood blebbutk345 mm[Hg]Rain Souza MD Work Phone: noKindred HospitalNbegvyjkwb95-44-8980 17:44-0500Body mass index (BMI) [Ratio]57.31 kg/m2Mckayla Blas PARI MUTUEL CLERK Work Phone: noKindred HospitalZapnlbouor44-56-6135 17:44-0500Body temperature 98.01 [degF]Mckaylajuvenal Blas PARI MUTUEL CLERK Work Phone: [facility] RehabSlisbhogae31-93-2292 17:44-0500Body jyptlg960.97 kgMaria De Jesus Wan PARI MUTUEL CLERK Work Phone: [facility] RehabKcbnaynosw07-94-4359 17:44-0500Diastolic blood grwjxozq68 mm[Hg]Mckayla Wan PARI MUTUEL CLERK Work Phone: [facility] RehabRqgrhxbkag93-98-5699 17:44-0500Heart rate83 /min Mckaylajuvenal Blas PARI MUTUEL CLERK Work Phone: [facility] RehabQbpkdylyls66-27-8900 17:44-0500Respiratory rate18 /minLi Wan PARI MUTUEL CLERK Work Phone: [facility] RehabXzpxbqnrul33-16-7617 17:44-5393NhX0% (BldA) [Mass fraction]91 %Mckayla Wan PARI MUTUEL CLERK Work Phone: [facility] RehabWscojlzhzn87-69-1827 17:44-0500Systolic blood wyejgaed204 mm[Hg]Mckaylajuvenal Blas PARI MUTUEL CLERK Work Phone: [facility] RehabZspjjbydwh49-77-5421 10:00-0500Blood Pressure LocationPatricezra ARAUZ [facility] [place] 912182-04-2024 10:00-0500Diastolic blood vmxjiiiv81 mm[Hg]Elbert ARAUZ [facility] [place] 912182-04-2024 10:00-0500Heart rate76 /minPatrick ARAUZ [facility]20[facility] 10:00-0500Systolic blood sihutmfz349 mm[Hg]Elbert ARAUZ [facility] [place] 522091-19-2024 10:20-0500Body wauwlk690.2 Reji Souza MD Work Phone: [address] [place], [place] [address]Apmnugfglx18-59-8037 10:20-0500Body mass index (BMI) [Ratio]56.7 kg/q0CtmzeRain Souza MD Work Phone: [facility] RehabVaycuidjib03-11-5863 10:20-0500Body unzays942.2 kgRain Souza MD Work Phone: [facility] RehabZhkvqpeazc47-86-9646 10:20-0500Diastolic blood vzgcalva65 mm[Hg]Rain Souza MD Work Phone: [phone] [place], [place] [address]Xygwcjuiqa06-32-1116 10:20-0500Heart rate72 /min Rain Souza MD Work Phone: [place] [address]Xowomajedf21-09-3906 10:20-0500Respiratory rate16 /minRain Souza MD Work Phone: [place] [address]Cnwaqiypel75-50-5672 10:20-0500Systolic blood erwmabgs688 mm[Hg]Rain Souza MD Work Phone: [facility] RehabWrrxgxsvbc78-14-5802 10:27-0400Body alnaic836.1 Jamal lBas PARI MUTUEL CLERK Work Phone: [facility] RehabKtzkasjthm84-55-9882 10:27-0400Body mass index (BMI) [Ratio]61.01 kg/m2Mckayla Blas PARI MUTUEL CLERK Work Phone: [facility] RehabFqpaqoshiv65-81-4451 10:27-0400Body temperature 98.49 [degF]Mckayla Blas PARI MUTUEL CLERK Work Phone: [facility] RehabDpsmkbupux50-45-0415 10:27-0400Body vlkgve703.29 kgMckayla Blas PARI MUTUEL CLERK Work Phone: [facility] RehabPuaihzdxht04-70-3040 10:27-0400Diastolic blood neegello64 mm[Hg]Mckayla Blas PARI MUTUEL CLERK Work Phone: [facility] RehabMflcjrbahs99-56-8605 10:27-0400Heart rate77 /min Mckayla Blas PARI MUTUEL CLERK Work Phone: [facility] RehabKsanmbwjms24-84-2620 10:27-0400Respiratory rate19 /minMckayla Blas PARI MUTUEL CLERK Work Phone: [facility] RehabEqbyuwulha25-94-9060 10:27-7134CmL5% (BldA) [Mass fraction]92 %Mckayla Blas PARI MUTUEL CLERK Work Phone: noKindred HospitalBrmmgaygvq22-53-5414 10:27-0400Systolic blood iphpprex426 mm[Hg]Mckayla Blas PARI MUTUEL CLERK Work Phone: [facility] RehabCymdexsukf86-61-6208 15:00-0400Body cnebzj928.18 cmAbdul Tico Other [facility] [employer] Other 436805-50-3786 15:00-0400Body knwinoipvur34.6 [degF]Stephanie Tico Other [place] [employer] Other 834431-24-6981 15:00-0400Diastolic blood xuyyijgm48 mm[Hg] Stephanie Tico Other [employer] Other 08-31-2022 15:00-0400Respiratory rate20 /minAbdul Tico Other [employer] Other 08-31-2022 15:00-7916EhB6% (BldA) [Mass fraction]91 % Stephanie Tico Other [employer] Other 08-31-2022 15:00-0400Systolic blood tyxylkjs699 mm[Hg] Stephanie [facility]ico Other [facility] [employer] Other 08-15-2022 09:20-0400Body renoqf271.18 cmAbdul Tico Other [place] [employer] Other 08-15-2022 09:20-0400Body tebxbfagewz60.5 [degF]Stephanie Tico Other [employer] Other 08-15-2022 09:20-0400Diastolic blood llqnabhz34 mm[Hg] Stephanie Tico Other [employer] Other 08-15-2022 09:20-0400Respiratory rate20 /minAbdul Tico Other [place] [employer] Other 08-15-2022 09:20-3802YmF8% (BldA) [Mass fraction]91 % Stephanie Tico Other [place] [employer] Other 08-15-2022 09:20-0400Systolic blood mm[Hg] Stephanie Tico Other [employer] Other 08-01-2022 10:24-0400Blood Pressure LocationElbert REGLA [facility] 08-01-2022 10:24-0400Diastolic blood voedkkjn01 mm[Hg] Elbert ARAUZ [facility] 08-01-2022 10:24-0400Heart rate70 /minPatrick ARAUZ [facility] 08-01-2022 10:24-0400Respiratory rate16 /minPatrick REGLA [facility] 08-01-2022 10:24-0400Systolic blood amywmzhv582 mm[Hg] Elbert ARAUZ [facility] Encounters Encounter DateEncounter TypeCare ProviderFacilityStart: 68-30-0849ucddupuncttoo Urias DPMFacility:Ortho/Sport MedStart: 04-29-2025 End: 44-06-2776hnuqvxlvxwVxixCarol Blas NP-C Work Phone: -[facility] ClydeStart: 04-29-2025 End: 37-80-8606Rnqtqwe encounter procedureMckayla Blas NP-C-[facility] [place] Work Phone: Start: 04-23-2025 End: 73-87-1977kacqfzgdopNktyqlrAlma Kellogg MDFacility:[facility] Start: 04-17-2025 End: 14-50-5242rksrcysjcqWjrm Jo Aichholz KAITARA TARAKA-CNPFacility:[facility]ativetart: 04-06-2025 End: 99-95-1941qlqgihajtxXccwCarol Blas NP-C Work Phone: [facility] Work Phone: Start: 04-06-2025 End: 02-08-1571Nuaudkz encounter procedureMckayla Blas NP-C-[facility] [place] Work Phone: Start: 42-30-8385Lonqysr encounter procedureMckayla Blas PARI MUTUEL CLERK-C Work Phone: [facility] Centertart: 57-85-8950Wfi- patient / Non-visitFlynn Urias DPM-[facility] Work Phone: Start: 85-66-9977Ues-patient / Non-visitPrice Ramsey DO-[facility] Work Phone: Start: 27-74-8619ecnfnlkufqGjqcdm Nas Rojas KAITARA TARAKA-PIG FURNACE OPERATOR [facility]Start: 03-23-2025 End: 70-29-9902qvlxaiybucNhzpi Jon Johnson DPMFacility:[facility] Start: 03-11-2025 End: 35-34-2115wyvyjfzlqzQaqck Huey Urias DPMFacility: [facility] CtrStart: 03-09-2025 End: 38-69-8524UlcacmXroh Aichholz PARI MUTUEL CLERK Work Phone: noMS [facility] FMComment on above:Tobacco user; Encounter for smoking cessation counselingStart: 01-29-2025 End: 78-16-1444Sghwoj Jack Souza MD Work Phone: noms ENDOCRINOLOGYStart: 01-29-2025 End: 74-04-2937Vmauxtashley Souza MD Work Phone: noms ENDOCRINOLOGYStart: 01-29-2025 End: 47-72-8741Qhkmlphqw Result EncounterGeneric External Data ProviderNOMS External Department UnsolicitedStart: 01-29-2025 End: 85-01-4962vahsubaackMZBBH F SABBAGHNot AvailableStart: 01-29-2025 End: 52-26-8257Orwsvz outpatient visit 25 minutesRain Souza MD Work [...] index (BMI) of50.0 to 59.9 in adult ([facility])Start: 01-26-2025 End: 33-04-0421vkjozbjnwaXKPT AICHHOLZNot AvailableStart: 01-26-2025 End: 93-54-2055Uvhnooy encounter Marcela Blas NP Work Phone: noms CW FMComment on above:Encounter for subsequent annual wellness visit (AWV) in Medicare patient (Primary Dx); Mixed hyperlipidemia ; Type 2 diabetes mellitus with complication, with long-term current use of insulin ([facility]); Bilateral lower extremity edema; Gastro-esophageal reflux disease without esophagitis; Chronic diastolic heart failure ([facility]); Primary hypertension ; Pulmonary hypertension ([facility]); Diabetic polyneuropathy associated with type 2 diabetes mellitus ([facility]); Pulmonary emphysema, unspecified emphysema type ([facility]); Moderate persistent asthma without complication ([facility]); Insomnia; Non-seasonal allergic rhinitis, unspecified trigger; Type 2 diabetes mellitus with unspecified complications ([facility]); Anxiety and depression ; Antibiotic-induced yeast infection; Chronic obstructive pulmonary disease, unspecified (HCC); Hyperlipidemia, unspecified ; Vaginal yeast infection; Morbid (severe) obesity due to excess calories ([facility])Start: 01-06-2025 End: 66-40-7616shfebctdtiMTKGBQCSelect Medical OhioHealth Rehabilitation Hospitaltart: 12-18-2024 End: 42-58-0105CaqgdhMxuj Aichholz PARI MUTUEL CLERK Work Phone: noms CW FMComment on above:Hyperlipidemia, unspecified ; Tobacco user; Encounter for smoking cessation counselingStart: 12-09-2024 End: 70-11-0541Ofdtwwashley Blas PARI MUTUEL CLERK Work Phone: noms CWM FMStart: 12-09-2024 End: 35-11-8726Wmvyywyousif Blas NP Work Phone: noms CWM FMStart: 12-09-2024 End: 23-54-0296jloetpnbepAPOV AICHHOLZNot AvailableStart: 12-09-2024 End: 91-76-6946Eelggp outpatient visit 25 minutesMckayla Blas PARI MUTUEL CLERK Work Phone: noms [facility] FMComment on above:Cellulitis of left lower extremity (Primary Dx); COPD exacerbation (CMS/HCC); Primary hypertension (CMS/HCC); Pulmonary hypertension (CMS/HCC); Morbid (severe) obesity due to excess calories ([facility]/HCC); Type 2 diabetes mellitus with complication, with long-term current use of insulin ([facility]/HCC); Anxiety and depression ([facility]); Fever, unspecified fever causeStart: 12-04-2024 End: 30-70-6483Vtzkehuzf Result EncounterGeneric External Data ProviderNONE External Department UnsolicitedStart: 12-04-2024 End: 53-98-0781Uhdkhoedi Result EncounterGeneric External Data ProviderNONE External Department UnsolicitedStart: 10-27-2024 End: 75-83-3184zqgxhtwmijYHBO AICHHOLZNot AvailableStart: 10-27-2024 End: 61-36-4100Cztrhg outpatient visit 25 minutesMckayla Blas PARI MUTUEL CLERK Work Phone: noMS [facility] FMComment on above:Primary hypertension (CMS/HCC) (Primary Dx); Diabetic polyneuropathy associated with type 2 diabetes mellitus ([facility]/HCC); Chronic diastolic heart failure ([facility]/HCC); Bilateral lower extremity edema; Morbid (severe) obesity due to excess calories ([facility]/HCC); Type 2 diabetes mellitus with complication, with long-term current use of insulin ([facility]/HCC); Anxiety and depression ([facility]/HCC); Cigarette nicotine dependence without complication; Encounter for screening mammogram for malignant neoplasm of breast; Insomnia; Non-seasonal allergic rhinitis, unspecified trigger; Type 2 diabetes mellitus with unspecified complications; Vitamin D deficiency, unspecified; Gastro-esophageal reflux disease without esophagitis; PAD (peripheral artery disease) ([facility]/HCC); Gastroesophageal reflux disease, unspecified whether esophagitis present; Venous ulcer of right leg ([facility]/HCC)Start: 10-21-2024 End: 86-66-3916GcrkvfXldj Aichholz PARI MUTUEL CLERK Work Phone: [facility] FMComment on above:Chronic obstructive pulmonary disease, unspecifiedStart: 10-08-2024 End: 76-60-0360Knxhgvzno Result EncounterLisa Blas PARI MUTUEL CLERK Work Phone: [facility] External Department UnsolicitedStart: 10-08-2024 End: 00-50-1768Ebkrbkrqm Result EncounterLisa Blas PARI MUTUEL CLERK Work Phone: [facility] External Department UnsolicitedStart: 10-08-2024 End: 21-51-2188Rlzqga outpatient visit 25 Adolfo Souza MD Work [...] of50.0 to 59.9 in adultStart: 10-08-2024 End: 09-85-7727dphcappaumXYBIW F SABBAGHNot AvailableStart: 08-27-2024 End: 99-91-3908Dqkkeq outpatient visit 25 minutesMckayla Wan SCHAEFER Work [...] complication, with long-term current use of insulin ([facility]); Tobacco user; Mixed hyperlipidemia ([facility]); Gout, unspecified cause, unspecified chronicity, unspecified site; Vitamin deficiency; Gastro-esophageal reflux disease without esophagitis; Edema, unspecified; Edema; Hyperlipidemia, unspecified ([facility] [facility]); Encounter for smoking cessation counseling; Venous ulcer of right leg ([facility]); Antibiotic-induced yeast infectionStart: 08-27-2024 End: 69-41-1362dbhrojxefsQIDZ AICHHOLZNot AvailableStart: 08-27-2024 End: 71-65-9951Fragpnvtx Result EncounterGeneric External Data ProviderNOMS External Department UnsolicitedStart: 08-27-2024 End: 23-70-3481Atancjkzl Result EncounterGeneric External Data ProviderNOMS External Department UnsolicitedStart: 08-08-2024 End: 60-24-8719avevvdccewXNBZXMercy Memorial Hospitaltart: 07-17-2024 End: 99-76-4910JahfuoDyod Aichholz PARI MUTUEL CLERK Work Phone: noms CWM FMStart: 07-14-2024 End: 20-22-0993Tadejf outpatient visit 25 [facility] hospitalMckayla Blas NP Work Phone: noms CWM FMComment on above:Primary hypertension ([facility]) (Primary Dx); Diabetic polyneuropathy associated with type 2 diabetes mellitus ([facility]); Pulmonary emphysema, unspecified emphysema type ([facility]); Critical limb ischemia of right lower extremity ([facility]); PAD (peripheral artery disease) ([facility]); Gastroesophageal reflux disease, unspecified whether esophagitis present; Bilateral lower extremity edema; Venous ulcer of right leg ([facility]); Type 2 diabetes mellitus with complication, with long-term current use of insulin ([facility]); Tobacco user; Encounter for smoking cessation counseling; Kidney stone; Adrenal mass 1 cm to 4 cm in diameter ([facility]); Radiculopathy, lumbar region; Non-seasonal allergic rhinitis, unspecified trigger; Type 2 diabetes mellitus with unspecified complications ([facility])Start: 07-14-2024 End: 47-87-8491omaxddpcqkLWHG AICHHOLZNot AvailableStart: 07-05-2024 End: 14-56-5948XffminPfok Chetz PARI MUTUEL CLERK Work Phone: noms [facility] FMComment on above:Bilateral lower extremity edemaStart: 06-11-2024 End: 31-87-7278izrkcbymswYqbuzoh R WATERSFacility:EU SanduskyStart: 06-11-2024 End: 76-16-8676Vuulefw encounter procedurePanaomy ARAUZ [facility] [place] Start: 05-27-2024 End: 19-57-5111Todais Jack Souza MD Work Phone: noms ENDOCRINOLOGYStart: 05-27-2024 End: 70-17-0527Vpnvqeyousif Souza MD Work Phone: noms ENDOCRINOLOGYStart: 05-27-2024 End: 64-38-3335hsikvpmuzyKZRNY F SABBAGHNot AvailableStart: 05-27-2024 End: 14-34-6441Luxyjk outpatient visit 25 minutesRain Souza MD Work Phone: noms ENDOCRINOLOGYComment on above:Type 2 diabetes mellitus with hyperglycemia, with long-term current use of insulin (CMS/[facility]) (Primary Dx); Encounter for dietary consultation; Vitamin D deficiency; Primary hypertension (CMS/HCC); Insulin long-term use (CMS/HCC); Hyperlipemia, mixed (CMS/HCC); Microalbuminuria; Class 3 severe obesity due to excess calories with serious comorbidity and body mass index (BMI) of50.0 to 59.9 in adult (CMS/HCC)Start: 05-12-2024 End: 73-12-6824Xusukqfmz Result EncounterGeneric External Data ProviderNOMS External Department UnsolicitedStart: 05-12-2024 End: 33-71-5582Zkllhsmqx Result EncounterGeneric External Data ProviderNOMS External Department UnsolicitedStart: 82-61-1529tqprbwwagbPHLQHGSN E SILVIA Facility:EU [place]Start: 04-24-2024 End: 42-84-6518Lrfncxyqu Result EncounterGeneric External Data ProviderNOMS External Department UnsolicitedStart: 04-24-2024 End: 37-36-7590Ueqlnahgb Result EncounterGeneric External Data ProviderNOMS External Department UnsolicitedStart: 04-14-2024 End: 58-11-3717Nfiucq flowsheetMckayla Blas PARI MUTUEL CLERK Work Phone: noms CWM FMStart: 04-14-2024 End: 18-07-1455Uyyqmg flowsheetMckayla Blas PARI MUTUEL CLERK Work Phone: noms CWM FMStart: 04-14-2024 End: 29-27-6048Cxovbx outpatient visit 25 minutesLisa Blas PARI MUTUEL CLERK Work Phone: noms CWM FMComment on above:Primary [...] Tobacco user; Hyperpigmentation of skinStart: 04-14-2024 End: 65-96-5452uisrsudaaaJUZM JUANJOSEHHOLZNot AvailableStart: 04-05-2024 End: 84-98-3171IwexttDxdb Aichholz PARI MUTUEL CLERK Work Phone: noms CWM FMComment on above:Hyperlipidemia, unspecified (CMS/HCC); Bilateral lower extremity edemaVitamin D deficiency, unspecifiedStart: 73-68-2216Seclyfm encounter procedureRain Souza MD Work Phone: noms HealthcareStart: 12-14-2023 End: 33-09-5874Kowbpxzjd Result EncounterLisa Wan PARI MUTUEL CLERK Work Phone: noms External Department UnsolicitedStart: 12-14-2023 End: 59-23-7657Xyhyobpbf Result EncounterLisa Harshadholz PARI MUTUEL CLERK Work Phone: noms External Department UnsolicitedStart: 08-31-2023 End: 20-70-5026Hbmzdjvuu Result EncounterAmy Cari PA Work Phone: noms External Department UnsolicitedStart: 08-31-2023 End: 34-41-8442Zgnododdd Result EncounterAmy Cari MAYERS Work Phone: noms External Department UnsolicitedStart: 08-17-2023 RefillLisa Rosenbergz PARI MUTUEL CLERK Work Phone: noms CWM FMComment on above:Vaginal yeast infection (Primary Dx)Start: 72-27-9131LmkdtoQiws Aichdallin PARI MUTUEL CLERK Work Phone: NOAW CWM FMComment on above:Type 2 diabetes mellitus with unspecified complications (CMS/HCC); Edema, unspecified; EdemaStart: 98-15-6801vqlkvqwupwXBYUYZHNNKHO LAKSHMIPATHY .Facility:H5Tvkwh: 12-05-2022 End: 01-86-1085Arpjonrntk and management of inpatientJESSICA ALONDRA .Facility:H1 Start: 11-23-2022 End: 13-44-2684wsmokgplmcBGS MCKAYLA AICHHOLZFacility:G2Snsqt: 11-22-2022 End: 77-35-0292cfzlwmnciiFVL MCKAYLA AICHHOLZFacility:T6Fdnpf: 11-17-2022 End: 46-11-9406ljdebnzcvlQGWONFT HALKER .Facility:Q6Xnhim: 11-15-2022 End: 71-70-4459Ijdwtfc encounter procedureJENNIFER E SILVIA [facility] start: 10-05-2022 End: 22-04-1473zgemvcweugNAODQU DIAB .Facility:L0Onvhg: 09-21-2022 End: 92-70-9473wuyqezfsreECH MCKAYLA BLASFacility:W8Bhqmt: 54-78-6318adxppbnqyv COMFORT CULLENFacility:K3Xcmyc: 08-24-2022 End: 54-86-4781angkdslcxeZZ CHAPARRO S [place] .Facility:Y9Brzjv: 08-21-2022 End: 37-62-6429ypyeogyjnxJHTQU D [facility] Centercility:I1Cccpm: 07-27-2022 End: 08-17-9737jsxvxfnwugGBBG TAMLYN .Facility:A5Qxhyw: 07-18-2022 End: 41-33-4019wykjfigefmHQTJ TAMLYN .Facility:G2Iwzwy: 07-18-2022 End: 26-68-5628zodedofokrINIXZ D [facility]ENTERFac[facility]:W4Ifkqa: 07-06-2022 End: 31-92-4736cqgrjoqugmQIE MCKAYLA BLASFacility:I0Arxpc: 05-11-2022 End: 32-60-1319hiuqofqmhmESIC VALENZUELA .Facility:W3Mjoza: 04-25-2022 End: 46-84-0686jirrlbphucFW CHAPARRO S [place] .Facility:M0Jhdam: 04-20-2022 End: 18-28-0973ojbtuwmkxnYSEL VALENZUELA .Facility:P1Tdlfg: 03-08-2022 End: 42-96-0761mszvmuzvjpYkpee Tico Other [employer] Other Start: 39-17-4553Dvpfxp outpatient visit 15 minutes Stephanie QadirFPG NephrologyStart: 03-03-2022 End: 53-56-9841yvvbywlxymXMP MCKAYLA Laucility:T7Bsoti: 02-20-2022 End: 35-80-6677crfqicteczUiyxm Tico Other [employer] Other Start: 38-18-9162Uxhswd outpatient new 45 minutesAbdul QadirFPG NephrologyStart: 02-06-2022 End: 80-03-2889Rcbadoo encounter procedureElbert Mahnaz REGLA [facility] Wilfredo start: 01-19-2022 End: 84-52-8663ebvfmencdpZMAR SOLIS .Facility:D9Vokzc: 12-24-2021 End: 55-83-5057vlwadfffgiJDCTH PARKERFacility:J6Adajv: 08-26-2020 End: 96-69-5855Sesevhc encounter procedureVITHAL SHENDGEFacility:UTMCStart: 10-30-2019 End: 76-12-7240Krkvjzzpi department patient visitDONADYA Cambridge Hospitaltart: 10-30-2019 End: 09-60-1779Nlmzenxft department patient visitParkwood Hospital Emergency DepartmentStart: 84-62-4326Dcfatlbrsmvt stateAbdul Tico Other rt [employer] Other Procedures DateProcedureProcedure DetailPerforming ClinicianStart: 62-08-4900SL ECHO DOPPLER COMPLETEGeneric External Data ProviderStart: 23-59-2393Yizu bld gluc mntr dev cleared fda spec home useRain Souza MD Work Phone: Start: 01-93-1604NNMNU CULTURE 2Generic External Data ProviderStart: 56-24-0602DDHJK CULTURE 1Generic External Data ProviderStart: 68-95-3770Gxqj bld gluc mntr dev cleared fda spec home useRain Souza MD Work Phone: Start: 82-13-2711RMW UA (CLEAN/CATCH) MICROSCOPIC IF INDICATELisa Wan PARI MUTUEL CLERK Work Phone: Start: 06-13-7374KMG CBC WITH AUTO DIFFGeneric External Data ProviderStart: 17-64-1283Ezjh bld gluc mntr dev cleared fda spec home useRain Souza MD Work Phone: Start: 47-67-9084VD LUMBAR SPINE WO CONGeneric External Data ProviderStart: 54-27-0144LV ABDOMEN PELVIS W CONGeneric External Data ProviderStart: 67-34-2461LVX CREATININEGeneric External Data ProviderStart: 86-92-1051IKVVCZIIC BLOOD PRESSUREGeneric External Data ProviderStart: 57-14-1731TS TOMOSYNTHESIS SCREENING Chyna Blas NP Work Phone: Start: 65-41-6134CexnwqnqrciEkmxd Sabbagh MD Work Phone: Start: 57-30-4222EXSDT CULTURE 2Generic External Data ProviderStart: 04-97-7384NIGAT CULTURE 1Generic External Data ProviderStart: 48-10-2287SGO 12-LEADAmy Cari MAYERS Work Phone: Start: 32-95-2641EbuksplxciuUyad Aichholz NP Work Phone: Start: 99-99-0845Qcdbhnzvnjc observation [Identifier] in Cervix by Cyto stainMckayla Blas NP Work Phone: H/O: hysterectomyPatrick ARAUZ Laparoscopic cholecystectomyPatrick ARAUZ Operative procedure on footPatrick ARAUZ Plan of Treatment DateCare ActivityDetailAuthorStart: 02-01-2026 End: 22-65-9727Qzdywsa encounter procedureNOMS CWM FMStart: 07-21-2026Medicare Annual Wellness (AWV)Medicare Annual Wellness (AWV)NOMS HealthcareStart: 92-77-8243Lzwxg screening for proteinDiabetes: Urine Protein ScreeningNOMS HealthcareStart: 12-47-7767Rlbgswnuz for malignant neoplasm of colonNOMS HealthcareStart: 72-07-2864Ksexjcqt screeningDiabetes: Retinopathy ScreeningNOMS HealthcareStart: 05-28-2025 End: 56-96-7241Pgpqrxx encounter procedureNOMS SH ENDOCRINOLOGYStart: 05-13-2025 Glaucoma screeningDiabetes: Retinopathy ScreeningST. [facility] HealthcareStart: 32-35-4175Ujnrsotxze A1c measurementDiabetes: Hemoglobin D5UUOFYSSM Rehab Start: 04-29-2025 End: 48-61-2434Dckwika encounter procedureNOCOMANCHE COUNTY [facility] FMStart: 44-69-9186Liqdntcjn vaccinationNONE HealthcareStart: 01-28-2025 End: 23-54-0212Lonznci encounter abwrrtfst53/23/2025 10:50 AM EDT Office Visit [facility] ENDOCR[facility] [address] [place] [address] Rain Souza MD [address] [place] [address] [facility] ENDOCRINOLOGYStart: 01-26-2025 End: 80-77-4656Ndzntgl encounter ztmtpmowo43/21/2025 6:00 PM EDT [facility] [address] [place] [address] Mckayla Blas, PARI MUTUEL CLERK [address] [place] [address] [facility] FMStart: 07-11-2025Medicare Annual Wellness (AWV) Medicare Annual Wellness (AWV)[facility] HealthcareStart: 22-54-2373Sbjtgdfpjf A1c measurementDiabetes: Hemoglobin C5GNXBLSSM RehabStart: 12-15-2024 End: 93-80-3848VH Breast - bilateral ScreeningBilateral screening mammogram Imaging Routine Encounter for screening mammogram for malignant neoplasm of breast Expected: 12/15/2024 (Approximate), Expires: 12/27/2025[facility] Work Phone: Comment on above:Expected: 12/15/2024 (Approximate), Expires: 12/27/2025Start: 32-44-3441Jfgesqmgu for malignant neoplasm of breast MammogramSSM RehabStart: 67-92-8085Bgnqs screening for proteinDiabetes: Urine Protein ScreeningST. [facility]OR[facility] HealthcareStart: 10-27-2024 End: 74-46-4225Kgkidhz encounter lfyesnkhw00/21/2025 2:00 PM EDT Office [facility] [address] [place] [address] Mckayla Blas NP [address] [place] [address] [facility] FMStart: 10-08-2024 End: 18-45-1486Gtcgmcd encounter vrheflixs37/02/2025 11:20 AM EDT Office Visit [facility] ENDO[facility] [address] [place] [address] Rain Souza MD [address], [address] [place] [address] [facility]Start: 08-27-2024 End: 06-89-2341Hsqycwn encounter souoosvhk88/19/2025 5:30 PM EST Office Visit NOMS [facility] [address] [place] [address] Mckayla Blas, SILVANO [address] [place] [address] [facility] FMStart: 08-27-2024 End: 72-87-860747508474-hpyhxysfdndjwp D3 [Mass/volume] in Serum or PlasmaVitamin D 25 hydroxy Lab Routine Vitamin deficiency Expected: 08/27/2024 (Approximate), Expires: 08/27/2025NONE HealthcareComment on above:Expected: 08/27/2024 (Approximate), Expires: 08/27/2025Start: 64-69-7855Ubuvosvpct A1c measurement Diabetes: Hemoglobin D6BWBMVKindred HospitalStart: 08-27-2024 End: 57-19-4002Frpdzbu function 2000 panel - Serum or PlasmaHepatic function panel Lab Routine Hyperlipidemia, unspecified (CMS/HCC) Expected: 08/27/2024 (Approximate), Expires: 08/27/2025[facility] HealthcareComment on above:Expected: 08/27/2024 (Approximate), Expires: 08/27/2025Start: 08-27-2024 End: 91-43-8725Hzzjz 1996 panel - Serum or PlasmaLipid panel Lab Routine Mixed hyperlipidemia ([facility]/HCC) Expected: 08/27/2024 (Approximate), Expires:08/27/2025 [facility] Healthcare Work Phone: Comment on above:Expected: 08/27/2024 (Approximate), Expires: 08/27/2025Start: 08-27-2024 End: 49-93-6385Phefgpvdqqak/Creatinine panel in random UrineMicroalbumin / creatinine, urine ratio Lab Routine Primary hypertension ([facility]) Type 2 diabetes mellitus with complication, with long-term current use of insulin ([facility]) Expected: 08/27/2024 (Approximate), Expires: 08/27/2025[facility] Healthcare Comment on above:Expected: 08/27/2024 (Approximate), Expires: 08/27/2025Start: 08-27-2024 End: 00-96-5261Wgzkf [Mass/volume] in Serum or PlasmaUric acid Lab Routine Gout, unspecified cause, unspecified chronicity, unspecified site Expected: (Approximate), Expires: 08/27/2025[facility] HealthcareComment on above: Expected: 08/27/2024 (Approximate), Expires: 08/27/2025Start: 08-27-2024 End: 59-93-9794Xlqgbmuxus complete panel - UrineUrinalysis with reflex microscopic (clean catch) Lab Routine Primary hypertension ([facility]) Type 2 d iabetes mellitus with complication, with long-term current use of insulin ([facility]) Tobacco user Gout, unspecified cause, unspecified chronicity, unspecified site Expected: 08/27/2024 (Approximate), Expires: 08/27/2025[facility] HealthcareComment on above:Expected: 08/27/2024 (Approximate), Expires: 08/27/2025Start: 08-26-2024 End: 98-41-7478Ldkqpin encounter /18/2025 10:30 AM EST Office Visit [facility] [address] [place] [address] Rain Souza MD [address], [address] [place] [address] [facility]Start: 07-14-2024 End: 94-31-6649Linfnqo encounter svexhpmvz06/06/2025 6:30 PM EST Office Visit [facility] FM [address] [place] [address] Mckayla Blas, SILVANO [address] [place] [address] [facility] FMStart: 07-14-2024 End: 91-87-6035Qnctgtz encounter opsgbjojr26/06/2025 10:10 AM EST Office Visit [facility] ENDO[facility] [address] [place] [address] Rain Souza MD [address], [address] [place] [address] [facility] ENDOCRINOLOGYStart: 98-22-9731Ciesxgdpa vaccinationInfluenza Vaccine (#1)NOMS HealthcareComment on above:Postponed from 03/09/2024 (Patient Refused)Start: 05-27-2024 End: 56-74-7488Jeimwke encounter orchsunru11/19/2024 9:50 AM EST Office Visit [facility] ENDOCR[facility] [address] [place] [phone] Rain Souza MD [address] [place] [address] [facility] ENDOCRINOLOGYStart: 39-26-4377Fzocalwvdc A1c measurementDiabetes: Hemoglobin P7QMEFO HealthcareStart: 05-15-2024 End: 66-57-8496Hzjzb lkqknohzgfk55/07/2024 Abstract [facility] ENDO[facility] [address] [place] [address] Rain Souza MD [address], [address] [place] [address] [facility]OLOGYStart: 05-15-2024 End: 14-27-0989Grwfgdc encounter vpixaamjg55/07/2024 11:20 AM EST Office Visit [facility] [address] [place] [address] Rain Souza MD [address], [address] [place] [address] [facility] ENDOCRINOLOGYStart: 04-17-2024 End: 76-13-0662Glacmtf encounter uzckpphrw91/10/2024 3:40 PM EDT Office Visit [facility] FM [address] [place] [address] Mckayla Blas, SILVANO [address] [place] [address] N[facility] FMStart: 04-14-2024 End: 72-33-5006Tdoiksy encounter qgeiboaaw05/07/2024 11:00 AM EDT Office Visit [facility] FM [address] [place] [address] Mckayla Blas, PARI MUTUEL CLERK [address] [place] [address] ArrivedNONE CW FMComment on above:ArrivedStart: 03-09-2024 Influenza vaccinationInfluenza Vaccine (#1)NOMS HealthcareStart: 02-19-2024 Hemoglobin A1c measurementDiabetes: Hemoglobin L8EWDVR HealthcareStart: 38-05-6096Atfek screening for proteinDiabetes: Urine Protein ScreeningNONE HealthcareStart: 78-57-4090Yzrpbjsow for malignant neoplasm of breastMammogram [facility] HealthcareStart: 10-15-2023 End: 11-01-5352Lzkidch encounter osgyqbxbo14/08/2024 4:30 PM EDT Office Visit [facility] [address] [address] Mckayla Blas, SILVANO [address] [place] [address] NOMS [facility] FMStart: 32-02-2438Gmmmsqvupu A1c measurement Diabetes: Hemoglobin R4OCEFL HealthcareStart: 39-10-9356Otwvzwdi screening Diabetes: Retinopathy ScreeningNONE HealthcareStart: 72-44-3433Xywmhxheo vaccinationFlu vaccine (Season Ended)[facility]: 10-07-2018 Screening for malignant neoplasm of cervixNONE HealthcareStart: 98-07-9136Lhbfk panelLipid screenParma Community General Hospital: 40-15-8520Myykwpbwh for malignant neoplasm of cervixHPV/CotestNONE HealthcareStart: 78-93-0989Qvhjrqxkc for malignant neoplasm of cervixCervical cancer screenParma Community General Hospital: 84-86-5226FItG/Tdap/Td vaccine (1 - Tdap)DTaP/Tdap/Td vaccine (1 - Tdap)[facility]: 09-67-5468YBV screeningHIV screenParma Community General Hospital: 02-17-1971Medicare Annual Wellness (AWV)Medicare Annual Wellness (AWV)[facility] HealthcareStart: 66-07-6469Vqvqyvvtr for malignant neoplasm of colonNOMS HealthcareBLOOD CULTURE 1BLOOD CULTURE 1 Lab Routine 12/04/2024 4:44 PM EDTNONE HealthcareBLOOD CULTURE 2BLOOD CULTURE 2 Lab Routine 12/04/2024 5:28 PM EDTNONE Healthcare Immunizations Immunization DateImmunizationNotesCare SzjktqdwMntsljoo86-73-4836snuhjlrge, injectable, quadrivalent, contains preservativeMckayla Blas PARI MUTUEL CLERK Work Phone: NOKindred HospitalZbfvsmwnpi92-83-2631faxvuvmuv virus vaccine, unspecified formulationRain Souza MD Work Phone: [facility]01-11-2022SARS-CoV-2 (COVID-19) mRNA BNT-162b2 vaxJENNIFER SILVIA [facility]04-22-2021SARS-CoV-2 (COVID-19) mRNA BNT-162b2 vaxJENNIFER SILVIA [facility]04-02-2021SARS-CoV-2 (COVID-19) mRNA BNT-162b2 vaxJENNIFER SILVIA [facility]10-09-2017influenza virus vaccine, H5N1, A/ (national stockpile)Mckayla Blas PARI MUTUEL CLERK Work Phone: [facility] RehabVhtmyybull73-69-1955eapkgassu virus vaccine, unspecified formulationRain Souza MD Work Phone: NOKindred HospitalGtzdkcampf21-55-9553mpnfjgmlb, unspecified formulationPatrick ARAUZ [facility] [place] 522090-09-2017pneumococcal polysaccharide vaccine, 23 Morgan Souza MD Work Phone: NOKindred HospitalInayutgyzd69-94-5165bbvjbpzsm virus vaccine, H5N1, A/ (national stockpile)Mckayla Blas PARI MUTUEL CLERK Work Phone: NOKindred HospitalLamcldbqjt33-06-9079gyvqvplhb virus vaccine, unspecified formulationRain Souza MD Work Phone: noKindred HospitalJroasbqywt59-62-2081hyconlhnm, unspecified formulationPatrick MIGSIF [facility]10-25-2013influenza virus vaccine, whole virusRain Souza MD Work Phone: NOKindred HospitalPqpkzbqxta68-79-1947tyidbebdr, injectable, quadrivalent, contains preservativeLisa Aichholz PARI MUTUEL CLERK Work Phone: NOKindred HospitalXypbdlulmx33-91-7564cezischlb, wholePatrick ARAUZ [facility]y07-24-1998measles, mumps and rubella virus vaccineRain Souza MD Work Phone: NONE Healthcare Payers DatePayer CategoryPayerPolicy [id number] 2024Medicare (Managed Care)[id number] Health [id number] [id number] 2019[place]icaid[place] [id number] 2018-Present [phone] [address] [place] [address]Medicaid [id number] 2013Medicare [id number] 2..840.1.899993.3.57[id number] 2.840.1.694293.3.57[id number] 2.16.840.1.452890.3.57[id number] 2.16.840.1.886289.3.57[id number] 2.16.840.1.976828.3.57[id number] 2..840.1.736770.3.57[id number] 2..840.1.874954.3.57[id number] 2.840.1.268805.3.57[id number] 2.840.1.525914.3.57[id number] 2.840.1.451047.3.57[id number] 2.840.1.595792.3.57[id number] 2.840.1.407786.3.57[id number] 2.840.1.022760.3.579.2.50798-33-7852Qacyoil1492579 2..840.1.176190.3.579.2.96288-29-0926Cwvdkqf6678141 2.840.1.596310.3.579.2.29788-70-4297Hfwjaxv9904136 2..840.1.138557.3.579.2.03370-21-5672Bagslra9800030 2.840.1.367210.3.579.2.44751-99-3140Mlqfflt7577866 2.16.840.1.283127.3.579.2.65308-18-4638Fcnsmef2147167 2.840.1.809470.3.579.2.63668-27-8137Ebsezhx8625926 2.840.1.818969.3.579.2.01472-21-2211Djuzhpf5504036 2.840.1.898507.3.579.2.14100-92-0554Xsvjaus0137365 2.840.1.156282.3.579.2.08365-04-3602Ceqohzh7829963 2.0.1.781852.3.579.2.62422-21-4972Cwijioc28150027 2.840.1.346989.3.579.2.112068-31-2529Mcbfrlg21710209 2.0.1.154552.3.579.2.750389-09-0488Eohdavp49644172 2..1.977076.3.579.2.879783-65-3737Buacpco1903890 2.840.1.032933.3.579.2.789991-85-2400Qhsivtq5273551 2.0.1.762331.3.579.2.398722-10-8824Bcfayda5978912 2..1.145012.3.579.2.555853-55-6765Nnkhagd8640057 2.0.1.760082.3.579.2.141797-57-0328Csvgoun6683524 2.840.1.884595.3.579.2.754704-56-6591Jbtrtmv6616833 2.840.1.640848.3.579.2.402193-24-1356Bvwkusp84218922 2..840.1.140191.3.579.2.18291-47-7221Nmvymdr68963647 2..840.1.453905.3.579.2.17507-97-7849Worhbix830128330 2..840.1.201722.3.579.2.95484-46-9658Rzbtwbt961444314 2..840.1.992792.3.579.2.79316-51-6391Rqsrzwy229968551 2..840.1.461974.3.579.2.35594-48-3969Nldreva579735487 2..840.1.126462.3.579.2.45918-08-7272Lxteqtr962623836 2.840.1.081109.3.579.2.72986-20-3409Drbxweh716777776 2..840.1.862883.3.579.2.65051-83-4880Zlcmtuj122164589 2..840.1.890066.3.579.2.196 [id number] 1960Private Health [id number] 2.0.1.027404.19 [id number] [id number] Health InsuranceMetrohealth Main [facility] Medical [id number] Auto/[id number] Social History DateTypeDetailFacilityStart: 02-17-2014 End: 63-45-3714Jjfsulz smoking status NHISCurrent every day smokerMercy Health- [place], [place]: 06-04-9237Dmvdrpz of tobacco useCigarette SmokerPar[facility]: 02-17-2014 End: 65-10-2778Yrhnegdxfb smoked current (pack per day) - ReportedParma Community General Hospital: 83-03-9112Lwodslq intakeCurrent drinker of alcohol (finding)[facility]: 84-11-1996Mnbnuzz CommentRareMParma Community General Hospital: 68-27-2548Ekp Assigned At BirthNot on fileDarwin, KYExposure to SARS-CoV-2 (event)Unable to assessParma Community General Hospital: 30-37-7743Qygggrq smoking statusSmoker (finding)[facility] start: 07-10-2023 End: 90-72-8235Ulw Assigned At BirthFemaleExec[facility] of [facility] start: 11-15-2022 End: 78-53-2719Deqzlkk smoking statusHeavy tobacco smoker (finding)[facility]: 07-10-2023 End: 23-26-2208Dlkowfo use and exposureSmokeless tobacco non-userN[facility] Healthcare Start: 07-10-2023 End: 80-95-4667Plzofvb intakeLifetime non-drinker (finding)[facility] HealthcareWithin the last year, have you been afraid of your partner or ex-partner?NoNOMS HealthcareDo you belong to any clubs or organizations such as pentecostalism groups, unions, fraternal [...] drinks on 1 occasion?Less than monthlyNOMS HealthcareStart: 89-07-6296Ovf hard is it for you to pay for the very basics like food, housing, medical care, and heatingNot hard at allST. GEORGE REG[facility] HealthcareDo you feel stress - tense, [...] from your doctor or pharmacy [SILS]RarelyNOMS HealthcareSexFemale (finding)[facility] Start: 05-29-4958Qsd [facility] At [facility] OrlandoNEGATED: Highlighted [facility] Medical Equipment Procedure CodeEquipment CodeEquipment Original TextEquipment IdentifierDates [id number]: 80-36-0665HXK TO TEST BLOOD SUGAR 4 TIMES [id number]: 07-07-2024 Functional Status BhapHdvqqdhndmMrcfztHdhpbccn52-79-6288Smihsyk Health Questionnaire 2 item (PHQ- 2) [Reported][facility] RehabZguvvcqxff58-66-6886Zatttvd falling or staying asleep, or sleeping too muchNot at all 01/26/2025 4:13 PM EDT Mychart, Generic Not at all [facility] RehabQxatbewomx98-51-1860Zxflutb tired or having little energyNot at all 01/26/2025 4:13 PM EDT Mychart, Generic Not at allSSM RehabHgbmlicovt86-24-3798Kmfl appetite or overeatingNot at all 01/26/2025 4:13 PM EDT Mychart, Generic Not at [facility] HospitalDrhfyjrzjs77-09-2450Ojdogfe bad about yourself-or that you are a failure or have let yourself or your family downNot at all 01/26/2025 4:13 PM EDT Mychart, Generic Not at allSSM RehabZqzxkmjjzr68-55-8543Zwchuqg concentrating on things, such as reading the newspaper or watching televisionNot at all 01/26/2025 4:13 PM EDT Mychart, Generic Not at [facility] HospitalJcdnrtsncw60-99-1976 Moving or speaking so slowly that other people could have noticed. Or the opposite - being so fidgety or restless that you have been moving around a lot more than usualNot at all 01/26/2025 4:13 PM EDT Mychart, Generic Not at [facility] HospitalJnrmdbcmsd62-97-2908Tgltljml that you would be better off , or of hurting yourself in some wayNot at all 01/26/2025 4:13 PM EDT Mychart, Generic Not at [facility] HospitalGontbuluik47-59-7567Fupyp score [AUDIT-C]1 08/26/2024 6:13 PM EST Mychart, GenericSSM RehabLsolemeoim65-90-2484Ize often do you have a drink containing alcohol?Monthly or less 08/26/2024 6:13 PM EST Mychart, Generic Monthly or lessSSM RehabOopppskgph58-85-3082Vsn many standard drinks containing alcohol do you have on a typical day?1 or 2 08/26/2024 6:13 PM EST Mychart, Generic 1 or 2NOMS Riolopzqwf32-25-9054Qqs often do you have 6 or more drinks on 1 occasion?Never 08/26/2024 6:13 PM EST Mychart, Generic NeverSS[facility] Rehab 42-80-9063Nmjsndbkoj StatusN/AExecutive [facility] of [facility]07-11-2024How difficult have these problems made it for you to do your work, take care of things at home, or get along with other people?Not difficult at all 01/17/2024 10:08 AM EDT Marilyn Rolon MA Not difficult at [facility] HospitalBinskdcnzw52-90-3801Kwvpheg Health Questionnaire 2 item (PHQ-2) [Reported][facility] RehabXkblwxtzhw06-28-6635Aozrrib Health Questionnaire 2 item (PHQ-2) [Reported][facility] RehabYsjrnbvqxn72-53-8350Venkzomxvm StatusN/AExec[facility] of [facility] Fjbszvmn49-43-3514Tyqkgzlfmq StatusN/AExec[facility] of [facility] Clinical Notes 01-19-2022 to 04-06-2025 Note Date & RxduCvesWqhyikqi16-07-2459 Evaluation note* Diagnosis Onset Date Resolution Status [...] use ofacuteOctober 2024 5:50pmVenous insufficiencyacuteOctober 2024 5:50pm [facility] Work Phone: [phone] 466-388007-30-2025 NotePlease let her know her ECHO showed some improvement in the left side wall thickness, it was severely enlarged, now it is moderate. Important for good BP control to continue to improve this. Everything else looks good. Follow-up as planned in 6 months. Thanks![facility]07-24-2025 History of Present illness Narrative* Rain [...] 96, on lantus 58 units bid, lispro 5-45-35oxlyz plus ISS, Trulicity 4.5 mg weekly. meter give us error during download IM 03/2022 follow up visit on 03/14/2022, A1c in the office 9.4, bg 142, on lantus 58 units bid, lispro 1-89-24jtflp plus ISS, Trulicity 4.5 mg weekly. lab [...] 25 mg, Oral, 2 times daily HYDROcodone-acetaminophen ([place]) 5-325 MG tablet 1 tablet, 3 times [...] depression 07/10/2023 Asthma ([facility]) 07/10/2023 Body mass index (BMI) 50.0-59.9, adult ([facility]) Cellulitis of left lower extremity Cervical cancer ([facility]) 09/17/2023 Chronic pain of both knees 09/17/2023 COPD (chronic obstructive pulmonary disease) ([facility]) 07/10/2023 COPD exacerbation ([facility]) 09/17/2023 Decreased functional mobility 09/17/2023 Diabetic neuropathy ([facility]) 07/10/2023 Dietary counseling and surveillance Edema 07/10/2023 Elevated sed rate Elevated WBC count Essential (primary) hypertension GERD (gastroesophageal reflux disease) 09/17/2023 Hyperlipidemia 09/17/2023 Hypertension 07/10/2023 Insomnia 09/17/2023 continuous churn buttermaker (current) use of insulin ([facility]) Lower extremity edema 09/17/2023 Mixed hyperlipidemia Morbid (severe) obesity due to excess calories ([facility]) Obstructive sleep apnea 07/10/2023 PAD (peripheral artery disease) 09/17/2023 Pancreatitis ([facility]) 09/17/2023 Pneumonia 09/17/2023 Proteinuria, unspecified Pulmonary hypertension ([facility]) 09/17/2023 Radiculopathy, lumbar region 09/17/2023 Tobacco user 09/17/2023 Type 2 diabetes mellitus with complication, with long-term current use of insulin ([facility]) 07/10/2023 Unilateral primary osteoarthritis, right hip 09/17/2023 [...] D deficiency Primary hypertension Insulin long-term use ([facility]) Hyperlipemia, mixed Microalbuminuria Class 3 severe obesity due to excess calories with serious comorbidity and body mass index (BMI) of50.0 to 59.9 in adult ([facility]) Diet and exercise reviewed with the patient Follow up in about 4 months (around 06/01/2025). documented in this encounterSSM RehabNfmxitzqpj07-41-0479 History of Present illness Narrative* Mckayla Blas NP - 01/26/2025 6:46 PM EDTAssociated Problem(s): Anxiety and depression Current meds: elavil, duloxtine, * Mckayla Blas NP - 01/26/2025 6:46 PM EDTAssociated Problem(s): Morbid (severe) obesity due to excess calories (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) Cellulitis of left lower extremity Cervical cancer ([facility]) 09/17/2023 Chronic pain of both knees 09/17/2023 COPD (chronic obstructive pulmonary disease) ([facility]) 07/10/2023 COPD exacerbation ([facility]) 09/17/2023 Decreased functional mobility 09/17/2023 Diabetic neuropathy ([facility]) 07/10/2023 Dietary counseling and surveillance Edema 07/10/2023 Elevated sed rate Elevated WBC count Essential (primary) hypertension GERD (gastroesophageal reflux disease) 09/17/2023 Hyperlipidemia 09/17/2023 Hypertension 07/10/2023 Insomnia 09/17/2023 continuous churn buttermaker (current) use of insulin ([facility]) Lower extremity edema 09/17/2023 Mixed hyperlipidemia Morbid (severe) obesity due to excess calories ([facility]) Obstructive sleep apnea 07/10/2023 PAD (peripheral artery disease) 09/17/2023 Pancreatitis ([facility]) 09/17/2023 Pneumonia 09/17/2023 Proteinuria, unspecified Pulmonary hypertension ([facility]) 09/17/2023 Radiculopathy, lumbar region 09/17/2023 Tobacco user 09/17/2023 Type 2 diabetes mellitus with complication, with long-term current use of insulin ([facility]) 07/10/2023 Unilateral primary osteoarthritis, right hip 09/17/2023 [...] albuterol, daliresp, Asthma ([facility]) Current meds: albuterol, duoneb, 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 Hypertension Please check [...] insulin ([facility]) Check blood sugars daily, notify if <70 [...] to excess calories ([facility]) Discussed with patient their BMI (actual, [...] EDTAssociated Problem(s): Pulmonary hypertension (HCC) Has seen [facility] Cardiology * Mckayla Blas NP - [...] on a yearly basis documented in this encounterSSM RehabOnfaeyvsbq45-15-5009 Instructions* Patient Instructions* Mckayla Blas NP - 01/26/2025 6:00 PM EDT Please call the [facility] to schedule your mammogram: [phone]- ext [phone] documented in this encounterSSM RehabDhutceqkcu57-18-3553 NoteCardiovascular Medicine [facility] SUBJECTIVE Chief Complaint Patient presents with Congestive Heart Failure Hypertension Hyperlipidemia Mitzi Macias is a 54 y.o. female here for follow-up. PMHx: HFpEF, HTN, HLD, DM, longstanding heavy smoker, COPD, DANIEL, morbid obesity HPI 01/06/2025 Since last seen she was admitted to [facility] for AMS on 12/05/2024. She was [...] of both lower extremities with ulcer (CMS/HCC) continuous churn buttermaker current use of inhaled steroid Vitamin D deficiency, unspecified Vitamin deficiency Past Medical History: Diagnosis Date COPD (chronic obstructive pulmonary disease) (CMS/HCC) Diabetes mellitus ([facility]) Hyperlipidemia Hypertension Sleep apnea Family History Problem [...] , Rfl: ergocalciferol (Vitamin D-2) 1.25 MG (78063 Units) capsule, Take 1.25 mg by mouth., [...] and at bedtime., Disp: , Rfl: HYDROcodone-acetaminophen ([place]) 5-325 mg tablet, TAKE 1 TABLET BY MOUTH THREE TIMES A DAY NEEDED FOR PAIN MUST LAST 30 DAYS, Disp: , Rfl: insulin aspart (NovoLOG) 100 unit/mL (3 mL) injection pen, Novolog Flexpen U-100 Insulin aspart 100 unit/mL (3 mL) subcutaneous, Disp: , Rfl: insulin glargine (Lantus Solostar U-100 Insulin) 100 unit/mL (3 mL) injection pen (more content not included)...[facility]07-01-2025 NotePatient is here today for a [...] and weight gain. Cardiovascular: Positive for leg swelling.[facility] 12-09-2024 History of Present illness Narrative* [...] bad light. She was ultimately taken to [facility] ER, no tox screen was done [...] 25 mg, Oral, 2 times daily HYDROcodone-acetaminophen ([place]) 5-325 MG tablet 1 tablet, 3 times [...] CT Albuminuria 09/17/2023 Angiomyolipoma Anxiety and depression ([facility]) 07/10/2023 Asthma 07/10/2023 Body mass index (BMI) 50.0-59.9, adult ([facility] Cellulitis of left lower extremity Cervical cancer ([facility]) 09/17/2023 Chronic pain of both knees 09/17/2023 COPD (chronic obstructive pulmonary disease) ([facility]) 07/10/2023 COPD exacerbation ([facility]) 09/17/2023 Decreased functional mobility 09/17/2023 Diabetic neuropathy ([facility]) 07/10/2023 Dietary counseling and surveillance Edema 07/10/2023 Elevated sed rate Elevated WBC count Essential (primary) hypertension ([facility]) GERD (gastroesophageal reflux disease) 09/17/2023 Hyperlipidemia ([facility]) 09/17/2023 Hypertension ([facility]) 07/10/2023 Insomnia 09/17/2023 continuous churn buttermaker (current) use of insulin ([facility]) Lower extremity edema 09/17/2023 Mixed hyperlipidemia ([facility]) Morbid (severe) obesity due to excess calories ([facility]) Obstructive sleep apnea 07/10/2023 PAD (peripheral artery disease) ([facility]) 09/17/2023 Pancreatitis 09/17/2023 Pneumonia 09/17/2023 Proteinuria, unspecified Pulmonary hypertension ([facility]) 09/17/2023 Radiculopathy, lumbar region 09/17/2023 Tobacco user 09/17/2023 Type 2 diabetes mellitus with complication, with long-term current use of insulin ([facility]) 07/10/2023 Unilateral primary osteoarthritis, right hip 09/17/2023 [...] Problem List Items Addressed This Visit Hypertension ([facility]) Please check blood pressure daily and record DASH diet Limit caffeine Take medication as directed Contact office if chest pain, pressure, dizziness, shortness of breath, swelling legs Recommend slow position changes Current meds: hydralazine, lisinopril, Type 2 diabetes mellitus with complication, with long-term current use of insulin ([facility]) Check blood sugars daily, notify if <70 [...] secondary to her steroids Anxiety and depression ([facility]) Current meds: elavil, duloxtine, COPD exacerbation ([facility]) Recent ER visit for unresponsiveness , found to have fever and elevated WBC Sent home with steroids and atb Breathing is better and she feels back to her normal baseline Does have home O2, she is not wearing this today Pulmonary hypertension ([facility]) Has seen [facility] Cardiology Morbid (severe) obesity due to excess calories ([facility]) Discussed with patient their BMI (actual, verses [...] EDTAssociated Problem(s): Pulmonary hypertension (CMS/HCC) Has seen [facility] Cardiology * Mckayla Blas NP - 12/09/2024 [...] not wearing this today documented in this encounterSSM [id number] Instructions* Patient Instructions* Mckayla Blas NP - 12/09/2024 10:00 AM EDT Keep appt with wound care today Keep fu with me, sooner if needed documented in this encounterSSM [id number] History of Present illness Narrative* Mckayla Blas [...] if possible Current med: PPI * Mckayla lBas NP - 10/27/2024 2:38 PM EDTAssociated Problem(s): [...] 25 mg, Oral, 2 times daily HYDROcodone-acetaminophen ([place]) 5-325 MG tablet 1 tablet, 3 times [...] CT Albuminuria 09/17/2023 Angiomyolipoma Anxiety and depression ([facility]) 07/10/2023 Asthma 07/10/2023 Body mass index (BMI) 50.0-59.9, adult ([facility]) Cellulitis of left lower extremity Cervical cancer ([facility]) 09/17/2023 Chronic pain of both knees 09/17/2023 COPD (chronic obstructive pulmonary disease) ([facility]) 07/10/2023 COPD exacerbation ([facility]) 09/17/2023 Decreased functional mobility 09/17/2023 Diabetic neuropathy ([facility]) 07/10/2023 Dietary counseling and surveillance Edema 07/10/2023 Elevated sed rate Elevated WBC count Essential (primary) hypertension ([facility]) GERD (gastroesophageal reflux disease) 09/17/2023 Hyperlipidemia ([facility]) 09/17/2023 Hypertension ([facility]) 07/10/2023 Insomnia 09/17/2023 continuous churn buttermaker (current) use of insulin ([facility]) Lower extremity edema 09/17/2023 Mixed hyperlipidemia ([facility]) Morbid (severe) obesity due to excess calories ([facility]) Obstructive sleep apnea 07/10/2023 PAD (peripheral artery disease) ([facility]) 09/17/2023 Pancreatitis 09/17/2023 Pneumonia 09/17/2023 Proteinuria, unspecified Pulmonary hypertension ([facility]) 09/17/2023 Radiculopathy, lumbar region 09/17/2023 Tobacco user 09/17/2023 Type 2 diabetes mellitus with complication, with long-term current use of insulin ([facility]) 07/10/2023 Unilateral primary osteoarthritis, right hip 09/17/2023 [...] List Items Addressed This Visit Diabetic neuropathy ([facility]) - Primary Continue with cintia hudson mgmt is prescribing OARRS reviewed Fu in 3 months Goal: tighter glucose control, this has been improving, latest A1c is 7.4%!!! Hypertension ([facility]) Please check blood pressure daily and record DASH diet Limit caffeine Take medication as directed Contact office if chest pain, pressure, dizziness, shortness of breath, swelling legs Recommend slow position changes Current meds: hydralazine, lisinopril, Relevant Medications hydrALAZINE (Apresoline) 25 MG tablet lisinopril 20 MG tablet Type 2 diabetes mellitus with complication, with long-term current use of insulin ([facility]) Check blood sugars daily, notify if <70 [...] 81 MG chewable tablet Anxiety and depression ([facility]) Current meds: elavil, duloxtine, Relevant Medications DULoxetine (Cymbalta) [address] capsule Bilateral lower extremity edema Limit sodium , elevate legs, furosemide Relevant Medications furosemide (Lasix) 20 MG tablet potassium chloride ER (Micro-K) 10 MEQ ER capsule furosemide (Lasix) 40 MG tablet Insomnia Relevant Medications amitriptyline (Elavil) 25 MG tablet PAD (peripheral artery disease) ([facility]) Asa, statin Quit smoking BP and DM [...] Relevant Medications ergocalciferol (Vitamin D2) 1.25 MG (94437 UT) capsule Gastro-esophageal reflux disease without esophagitis [...] complication, with long-term current use of insulin ([facility]) Check blood sugars daily, notify if <70 [...] due to excess calories ([facility]) Discussed with patient their BMI (actual, verses [...] sodium , elevate legs, furosemide * Mckayla Bals NP - 10/27/2024 7:07 AM EDTAssociated Problem(s): [...] latest A1c is 7.4%!!! documented in this encounterTracy Ville [id number] Instructions* Patient Instructions* Mckayla Blas NP - 10/27/2024 2:00 PM EDT No dose changes in meds You will be due for mammogram I will send order to [facility], they should call you to schedule If no call, please call [phone] ext [phone] documented in this encounterTracy Ville [id number] History of Present illness Narrative* Rain Souza [...] 96, on lantus 58 units bid, lispro 3-77-05jvkoz plus ISS, Trulicity 4.5 mg weekly. meter give us error during download IM 03/2022 follow up visit on 03/14/2022, A1c in the office 9.4, bg 142, on lantus 58 units bid, lispro 8-58-00tyxmb plus ISS, Trulicity 4.5 mg weekly. lab [...] or chew. ergocalciferol (Vitamin D2) 1.25 MG (00562 UT) capsule TAKE 1 CAPSULE BY MOUTH [...] 25 mg, Oral, 2 times daily HYDROcodone-acetaminophen ([place]) 5-325 MG tablet 1 tablet, 3 times [...] CT Albuminuria 09/17/2023 Angiomyolipoma Anxiety and depression ([facility]) 07/10/2023 Asthma ([facility]) 07/10/2023 Body mass index (BMI) 50.0-59.9, adult ([facility]) Cellulitis of left lower extremity Cervical cancer ([facility]) 09/17/2023 Chronic pain of both knees 09/17/2023 COPD (chronic obstructive pulmonary disease) ([facility]) 07/10/2023 COPD exacerbation ([facility]) 09/17/2023 Decreased functional mobility 09/17/2023 Diabetic neuropathy ([facility]) 07/10/2023 Dietary counseling and surveillance Edema 07/10/2023 Elevated sed rate Elevated WBC count Essential (primary) hypertension ([facility]) GERD (gastroesophageal reflux disease) 09/17/2023 Hyperlipidemia ([facility]) 09/17/2023 Hypertension ([facility]) 07/10/2023 Insomnia 09/17/2023 continuous churn buttermaker (current) use of insulin ([facility]) Lower extremity edema 09/17/2023 Mixed hyperlipidemia [facility] Morbid (severe) obesity due to excess calories ([facility]) Obstructive sleep apnea 07/10/2023 PAD (peripheral artery disease) ([facility]) 09/17/2023 Pancreatitis 09/17/2023 Pneumonia 09/17/2023 Proteinuria, unspecified Pulmonary hypertension ([facility]) 09/17/2023 Radiculopathy, lumbar region 09/17/2023 Tobacco user 09/17/2023 Type 2 diabetes mellitus with complication, with long-term current use of insulin ([facility] 07/10/2023 Unilateral primary osteoarthritis, right hip 09/17/2023 [...] hyperglycemia, with long-term current use of insulin ([facility]) - POCT glucose manually resulted - POCT [...] 4 months (around 02/07/2025). documented in this encounterSSM [id number] History of Present illness Narrative* Mckayla Blas [...] or chew. ergocalciferol (Vitamin D2) 1.25 MG (62817 UT) capsule TAKE 1 CAPSULE BY MOUTH [...] 25 mg, Oral, 2 times daily HYDROcodone-acetaminophen ([place]) 5-325 MG tablet 1 tablet, 3 times [...] 09/17/2023 Angiomyolipoma Anxiety and depression ([facility]) 07/10/2023 Asthma ([facility]) 07/10/2023 Body mass index (BMI) 50.0-59.9, adult ([facility]) Cellulitis of left lower extremity Cervical cancer ([facility]) 09/17/2023 Chronic pain of both knees 09/17/2023 COPD (chronic obstructive pulmonary disease) ([facility]) 07/10/2023 COPD exacerbation ([facility]) 09/17/2023 Decreased functional mobility 09/17/2023 Diabetic neuropathy ([facility]) 07/10/2023 Dietary counseling and surveillance Edema 07/10/2023 Elevated sed rate Elevated WBC count Essential (primary) hypertension ([facility]) GERD (gastroesophageal reflux disease) 09/17/2023 Hyperlipidemia ([facility]) 09/17/2023 Hypertension ([facility]) 07/10/2023 Insomnia 09/17/2023 snf (current) use of insulin ([facility]) Lower extremity edema 09/17/2023 Mixed hyperlipidemia ([facility]) Morbid (severe) obesity due to excess calories ([facility]) Obstructive sleep apnea 07/10/2023 PAD (peripheral artery disease) ([facility]) 09/17/2023 Pancreatitis 09/17/2023 Pneumonia 09/17/2023 Proteinuria, unspecified Pulmonary hypertension ([facility]) 09/17/2023 Radiculopathy, lumbar region 09/17/2023 Tobacco user 09/17/2023 Type 2 diabetes mellitus with complication, with long-term current use of insulin ([facility]) 07/10/2023 Unilateral primary osteoarthritis, right hip 09/17/2023 [...] List Items Addressed This Visit Diabetic neuropathy ([facility]) Continue with cintia hudson mgmt is prescribing OARRS reviewed Fu in 3 months Goal: tighter glucose control Hypertension ([facility]) Please check blood pressure daily and record [...] complication, with long-term current use of insulin ([facility]) Check blood sugars daily, notify if <70 [...] / creatinine, urine ratio Anxiety and depression ([facility]) - Primary Current meds: elavil, duloxtine, PHQ [...] PPI Malignant neoplasm of cervix uteri, unspecified ([facility]) Had in the past, had hysterectomy Tobacco user The patient has been advised of the risks of continued smoking: stroke, VA, all forms of cancer, lung disease, and [...] of the risks of continued smoking: stroke, VA, all forms of cancer, lung disease, and [...] Asthma (CMS/HCC) Current meds: albuterol, duoneb, 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 year old female patient being seen for follow-up on diastolic heart failure, shortness of breath and hypertension Patient Active Problem List Diagnosis Abdominal pannus Adrenal mass 1 cm to 4 cm in diameter ([facility]) Albuminuria RAGHU positive Anxiety and depression Arthritis Asthma Bilateral lower extremity edema BMI 50.0-59.9, adult ([facility]) Candidiasis of breast Cardiomegaly Cervical cancer ([facility]) Chronic pain of both knees Closed fracture of upper end of humerus Acute respiratory distress syndrome ([facility]) Decreased functional mobility Diabetic neuropathy ([facility]) Easy bruising GERD (gastroesophageal reflux disease) Gout Headache Hyperlipidemia Hypertension Insomnia Kidney stone Left flank pain Mixed incontinence Class 3 severe obesity with serious comorbidity and body mass index (BMI) of 50.0 to 59.9 in adult ([facility]) Non-seasonal allergic rhinitis Obstructive sleep apnea Other chronic pain PAD (peripheral artery disease) ([facility]) Pneumonia Encounter for screening mammogram for malignant neoplasm of breast Pulmonary hypertension ([facility]) Radiculopathy, lumbar region Current smoker Type 2 diabetes mellitus with complication, with long-term current use of insulin ([facility]) Unilateral primary osteoarthritis, right hip Vaginal yeast infection Venous insufficiency Bad odor of urine Critical limb ischemia of right lower extremity ([facility]) Hyperpigmentation of skin 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 2 diabetes mellitus ([facility]) Myelolipoma of adrenal gland Venous ulcer of right leg ([facility]) HPI Patient was has history of chronic [...] Diagnosis Date COPD (chronic obstructive pulmonary disease) ([facility]) Diabetes mellitus ([facility]) Hyperlipidemia Hypertension Sleep apnea Past Surgical History: [...] , Rfl: ergocalciferol (Vitamin D-2) 1.25 MG (95044 Units) capsule, Take 1.25 mg by mouth., [...] and at bedtime., Disp: , Rfl: HYDROcodone-acetaminophen ([place]) 5-325 mg tablet, TAKE 1 TABLET BY [...] SUBCUTANEOUSLY TWICE DAILY, Disp: (more content not included)...[facility]01-06-2025 History of Present illness Narrative* Mckayla [...] or chew. ergocalciferol (Vitamin D2) 1.25 MG (88461 UT) capsule TAKE 1 CAPSULE BY MOUTH ONE TIME PER WEEK furosemide (LASIX) 40 mg, Oral, Daily furosemide (LASIX) 20 mg, Oral, Daily PRN, Take in the afternoon as needed hydrALAZINE (APRESOLINE) 25 mg, Oral, 2 times daily HYDROcodone-acetaminophen ([place]) 5-325 MG tablet 1 tablet, 3 times [...] CT Albuminuria 09/17/2023 Angiomyolipoma Anxiety and depression ([facility]) 07/10/2023 Asthma ([facility]) 07/10/2023 Body mass index (BMI) 50.0-59.9, adult ([facility]) Cellulitis of left lower extremity Cervical cancer ([facility]) 09/17/2023 Chronic pain of both knees 09/17/2023 COPD (chronic obstructive pulmonary disease) ([facility]) 07/10/2023 COPD exacerbation ([facility]) 09/17/2023 Decreased functional mobility 09/17/2023 Diabetic neuropathy ([facility]) 07/10/2023 Dietary counseling and surveillance Edema 07/10/2023 Elevated sed rate Elevated WBC count Essential (primary) hypertension ([facility]) GERD (gastroesophageal reflux disease) 09/17/2023 Hyperlipidemia ([facility]) 09/17/2023 Hypertension ([facility]) 07/10/2023 Insomnia 09/17/2023 continuous churn buttermaker (current) use of insulin ([facility]) Lower extremity edema 09/17/2023 Mixed hyperlipidemia ([facility]) Morbid (severe) obesity due to excess calories ([facility]) Obstructive sleep apnea 07/10/2023 PAD (peripheral artery disease) ([facility]) 09/17/2023 Pancreatitis 09/17/2023 Pneumonia 09/17/2023 Proteinuria, unspecified Pulmonary hypertension ([facility]) 09/17/2023 Radiculopathy, lumbar region 09/17/2023 Tobacco user 09/17/2023 Type 2 diabetes mellitus with complication, with long-term current use of insulin ([facility]) 07/10/2023 Unilateral primary osteoarthritis, right hip 09/17/2023 [...] List Items Addressed This Visit Diabetic neuropathy ([facility]) Continue with lyrica OARRS reviewed Fu in 3 months COPD (chronic obstructive pulmonary disease) ([facility]) Stable at this time, no changes in meds Encouraged smoking cessation Cont with dr Yañez Hypertension ([facility]) - Primary Please check blood pressure daily and record DASH diet Limit caffeine Take medication as directed Contact office if chest pain, pressure, dizziness, shortness of breath, swelling legs Recommend slow position changes Current meds: hydralazine, lisinopril, Type 2 diabetes mellitus with complication, with long-term current use of insulin ([facility]) Check blood sugars daily, notify if <70 [...] take over prescribing PAD (peripheral artery disease) ([facility]) Asa, statin Quit smoking BP and DM [...] of the risks of continued smoking: stroke, VA, all forms of cancer, lung disease, and [...] of the risks of continued smoking: stroke, VA, all forms of cancer, lung disease, and [...] complication, with long-term current use of insulin ([facility]) Check blood sugars daily, notify if <70 [...] Fu in 3 months documented in this encounterSSM [id number] Hospital Discharge instructions Patient Education 06/11/2024 10:44:08 [...] require a prescription. You can also purchase wwhb-hrd-svemhsy medicines. Medicines may have nicotine in them [...] and encouragement. Call telephone quitlines, such as 1-645-DTLP-NOW, reach out to support groups, or work [...] provider. Document Revised: 06/16/2022 Document Reviewed: 06/16/2022 [employer] Patient Education 2023 [employer] 06/11/2024 10:39:22 Dietary Guidelines to Help [...] include: ?8 oz (237 mL) of milk, wlimvgj-mmhrvvfsiwet-pwgex milk, and calcium- fortifiedfruit juice. Calcium-fortified means [...] rhubarb, beets, sweet potatoes, and Citizen [place] chard. ?Peanuts. ?Potato chips, azerbaijani fries, and baked potatoes with skin on. ?Nuts and nut products. ?Chocolate. If you regularly take a diuretic medicine, make sure to eat at least 1 or 2 servings of fruits or vegetables that are high in potassium each day. These include: ?Avocado. ?Banana. ?Sumner, prune, carrot, or tomato juice. ?Baked potato. [...] magnesium, fish oil, or vitamin B6. Take bsaw-znm-qwcmkdx and prescription medicines only as told by [...] Casseroles. Pizza. Lasagna. Frozen meals. Potato chips. Indian fries. The items listed above may not [...] Document Reviewed: 10/05/2022 Elsevier Patient Education 2023 [employer] Follow Up Care 05/06/2024 08:24:56 With:REGLA PHIPPS, Elbert Joya, GEMA Address: [facility] [address] [place] [address]- When: Unknown [facility] Ghada 12-04-2024 NotePatient Education Nephrology Dietary [...] ? 8 oz (237 mL) of milk, semthsl-keuhmtmwuqui-ccilb milk, and calcium- fortifiedfruit juice. Calcium-fortified means [...] rhubarb, beets, sweet potatoes, and Citizen Of [place] chard. ? Peanuts. ? Potato chips, azerbaijani fries, and baked potatoes with skin on. ? Nuts and nut products. ? Chocolate. ??? If you regularly take a diuretic medicine, make sure to eat at least 1 or 2 servings of fruits or vegetables that are high in potassium each day. These include: ? Avocado. ? Banana. ? [place]ner, prune, carrot, or tomato juice. ? Baked [...] fish oil, or vitamin B6. ??? Take upxv-ymj-qhdqvtb and prescription medicines only as told by your health (more content not included)...[facility]11-19-2024 History of Present illness Narrative* Rain [...] 96, on lantus 58 units bid, lispro 1-65-10fzmku plus ISS, Trulicity 4.5 mg weekly. meter give us error during download IM 03/2022 follow up visit on 03/14/2022, A1c in the office 9.4, bg 142, on lantus 58 units bid, lispro 2-48-55ellon plus ISS, Trulicity 4.5 mg weekly. lab [...] or chew. ergocalciferol (Vitamin D2) 1.25 MG (14352 UT) capsule TAKE 1 CAPSULE BY MOUTH ONE TIME PER WEEK furosemide (LASIX) 20 mg, Oral, Daily PRN, Take in the afternoon as needed furosemide (LASIX) 40 mg, Oral, Daily Glucose Blood (ACCU-CHEK JAQUI PLUS ) 4 times daily hydrALAZINE (APRESOLINE) 25 mg, Oral, 2 times daily HYDROcodone-acetaminophen ([place]) 5-325 MG tablet 1 tablet, 3 times [...] X 42 tablet therapy pack [facility] ALLERGIES: No Known Allergies Past Medical History: Diagnosis Date Abnormal chest CT Albuminuria 09/17/2023 Angiomyolipoma Anxiety and depression ([facility]) 07/10/2023 Asthma ([facility]) 07/10/2023 Body mass index (BMI) 50.0-59.9, adult ([facility]) Cellulitis of left lower extremity Cervical cancer ([facility]) 09/17/2023 Chronic pain of both knees 09/17/2023 COPD (chronic obstructive pulmonary disease) ([facility]) 07/10/2023 COPD exacerbation ([facility]) 09/17/2023 Decreased functional mobility 09/17/2023 Diabetic neuropathy ([facility]) 07/10/2023 Dietary counseling and surveillance Edema 07/10/2023 Elevated sed rate Elevated WBC count GERD (gastroesophageal reflux disease) 09/17/2023 Hyperlipidemia ([facility]) 09/17/2023 Hypertension ([facility]) 07/10/2023 Insomnia 09/17/2023 continuous churn buttermaker (current) use of insulin ([facility]) Lower extremity edema 09/17/2023 Morbid (severe) obesity due to excess calories ([facility]) Obstructive sleep apnea 07/10/2023 PAD (peripheral artery disease) ([facility]) 09/17/2023 Pancreatitis 09/17/2023 Pneumonia 09/17/2023 Proteinuria, unspecified Pulmonary hypertension ([facility]) 09/17/2023 Radiculopathy, lumbar region 09/17/2023 Tobacco user 09/17/2023 Type 2 diabetes mellitus with complication, with long-term current use of insulin ([facility]) 07/10/2023 Unilateral primary osteoarthritis, right hip 09/17/2023 [...] hyperglycemia, with long-term current use of insulin ([facility]) - POCT glucose manually resulted - POCT glycosylated hemoglobin (Hb A1C) docked device We will continue with Lantus 58, lispro 02/16/12 according to meal size, Mounjaro 15 mg once weekly, Farxiga 5 mg once a day Encounter for dietary consultation Vitamin D deficiency Primary hypertension ([facility]) To follow with her PCP Insulin long-term use ([facility]) Hyperlipemia, mixed ([facility]) Continue with Zocor 10 mg once daily Microalbuminuria Class 3 severe obesity due to excess calories with serious comorbidity and body mass index (BMI) of50.0 to 59.9 in adult ([facility]) Diet and exercise reviewed with the patient Follow up in about 3 months (around 08/27/2024). documented in this encounterSSM [id number] History of Present illness Narrative* Mckayla Blas NP - 04/14/2024 11:45 AM EDTAssociated Problem(s): Hyperpigmentation of skin Will try cerevue ointment to see if helps * Mckayla Blas NP - 04/14/2024 11:43 AM EDTAssociated Problem(s): Tobacco user Urged to quit * Mckayla Blas NP - 04/14/2024 11:43 AM EDTAssociated Problem(s): Type 2 diabetes mellitus with complication, with long-term current use of insulin ([facility]) Check blood sugars daily, follow w Endo. [...] being taken. 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 Hypertension This is [...] or chew. ergocalciferol (Vitamin D2) 1.25 MG (17112 UT) capsule TAKE 1 CAPSULE BY MOUTH ONE TIME PER WEEK furosemide (LASIX) 20 mg, Oral, Daily PRN, Take in the afternoon as needed furosemide (LASIX) 40 mg, Oral, Daily Glucose Blood (ACCU-CHEK JAQUI PLUS ) 4 times daily HumaLOG KWIKPEN 100 UNIT/ML injection Subcutaneous hydrALAZINE (APRESOLINE) 25 mg, Oral, 2 times daily HYDROcodone-acetaminophen ([place]) 5-325 MG tablet 1 tablet, 3 times [...] 09/17/2023 Angiomyolipoma Anxiety and depression ([facility]) 07/10/2023 Asthma ([facility]) 07/10/2023 Cellulitis of left lower extremity Cervical cancer ([facility]) 09/17/2023 Chronic pain of both knees 09/17/2023 COPD (chronic obstructive pulmonary disease) ([facility]) 07/10/2023 COPD exacerbation ([facility]) 09/17/2023 Decreased functional mobility 09/17/2023 Diabetic neuropathy ([facility]) 07/10/2023 Edema 07/10/2023 Elevated sed rate Elevated WBC count GERD (gastroesophageal reflux disease) 09/17/2023 Hyperlipidemia ([facility]) 09/17/2023 Hypertension ([facility]) 07/10/2023 Insomnia 09/17/2023 Lower extremity edema 09/17/2023 Obstructive sleep apnea 07/10/2023 PAD (peripheral artery disease) ([facility]) 09/17/2023 Pancreatitis 09/17/2023 Pneumonia 09/17/2023 Pulmonary hypertension ([facility]) 09/17/2023 Radiculopathy, lumbar region 09/17/2023 Tobacco user 09/17/2023 Type 2 diabetes mellitus with complication, with long-term current use of insulin ([facility]) 07/10/2023 Unilateral primary osteoarthritis, right hip 09/17/2023 [...] List Items Addressed This Visit Diabetic neuropathy ([facility]) Continue with lyricjuvenal GALLAGHERRRS reviewed Fu in 3 months Relevant Medications pregabalin (Lyrica) 300 MG capsule COPD (chronic obstructive pulmonary disease) ([facility]) - Primary Stable at this time, no changes in meds Encouraged smoking cessation Cont with dr Yañez Hypertension ([facility]) Stable on current meds Refill meds Relevant Medications hydrALAZINE (Apresoline) 25 MG tablet lisinopril 20 MG tablet Type 2 diabetes mellitus with complication, with long-term current use of insulin ([facility]) Check blood sugars daily, follow w Endo. [...] Roflumilast 500 MCG tablet documented in this encounterSSM [id number] Hospital Discharge instructions Patient Education 11/15/2022 14:09:21 [...] include: ?8 oz (237 mL) of milk, ganubcv-wwlhodhrsuel-nlwcz milk, and calcium- fortifiedfruit juice. Calcium-fortified means [...] rhubarb, beets, sweet potatoes, and Citizen [place] chard. ?Peanuts. ?Potato chips, azerbaijani fries, and baked potatoes with skin on. ?Nuts and nut products. ?Chocolate. If you regularly take a diuretic medicine, make sure to eat at least 1 or 2 servings of fruits or vegetables that are high in potassium each day. These include: ?Avocado. ?Banana. ?Sumner, prune, carrot, or tomato juice. ?Baked potato. [...] magnesium, fish oil, or vitamin B6. Take pdnm-ohr-svibrbk and prescription medicines only as told by [...] Casseroles. Pizza. Lasagna. Frozen meals. Potato chips. Indian fries. The items listed above may not [...] provider. Document Revised: 03/06/2022 Document Reviewed: 03/06/2022 [employer] Patient Education 2022 [employer] Follow Up Care 02/06/2022 11:44:09 With:GAVIOTA ADAMES PA-C, URL Address: [facility] [address] [place] [address] When: Unknown [facility] 02-16-2023 NoteCONSULTATION CONSULTATION DATE: 08/24/2022 HISTORY [...] We maintain her on pain medication with Allegany 5/325 t.i.d., diclofenac 75 mg b.i.d. Her [...] her at this point. A refill for Allegany 5/325 t.i.d. and diclofenac 75 mg b.i.d. will be sent to the pharmacy. Vitamin compliance and nutrition were discussed and enforced. I did highly encourage her to use exercise bands to increase the strength in her lower extremities. We will see her in three months' time, unless otherwise indicated, and patient agrees.[facility] [id number] NoteCONSULTATION CONSULTATION DATE: 05/11/2022 This 51-year-old female [...] 150. Medications include Lyrica 300 mg b.i.d., Allegany 5/325 t.i.d., diclofenac 75 mg b.i.d. and [...] her medications today. We will maintain Lyrica, Allegany and diclofenac at the set dose and frequency. We will follow-up in the clinic in three months' time. The patient is in agreement to this. Vitamin importance and nutrition were discussed.[facility] [id number] NoteCONSULTATION CONSULTATION DATE: 04/20/2022 HISTORY OF PRESENT [...] medications include Tylenol, Lyrica 300 mg b.i.d., Allegany 5/325 t.i.d., amitriptyline, diclofenac and duloxetine. Patient's [...] will be followed up in the clinic.[facility] [id number] Evaluation note* Encounter Date Diagnosis Assessment Notes [...] to the DANIEL. Thrombocytopenia is unclear etiology. [facility] 08-15-2022 Evaluation note* Encounter Date Diagnosis [...] follow with Dr. Souza and Dr. Arauz. [facility] 08-01-2022 Hospital Discharge instructions Patient Education [...] fried and sweet foods. General instructions Take ufdw-kip-dfirabb and prescription medicines only as told by [...] 04/21/2010 Document Revised: 10/16/2019 Document Reviewed: 07/11/2018 [employer] Patient Education 2020 [employer] Follow Up Care 01/05/2022 12:02:03 With:REGLA PHIPPS, Elbert Joya, URL Address: [facility] [address] [place] [address] [phone] When:Within 6 Month(s) Comments:w/ repeat CT A/P [facility] 07-14-2022 NoteCONSULTATION PROCEDURE DATE: [...] pattern and the patient tolerated it well. [facility] Signed and Approved by: GIL VALENZUELA . 01/27/2022 14:15:00[facility]07-14-2022 NoteCONSULTATION CONSULTATION DATE: 01/19/2022 This [...] today. Medications include Lyrica 300 mg b.i.d., Allegany 5/325 t.i.d., diclofenac 75 mg b.i.d. and [...] in three months' time unless otherwise indicated. [facility] Signed and Approved by: GIL VALENZUELA . 01/27/2022 14:15[facility]00[facility]ments Appointment Date:08/14/2022 09:15:00 AM Scheduled Provider:Elbert ARAUZ MD Location:[facility] Appointment Type:URO Office Visit [facility] evaluation + Plan note Future Appointments Appointment Date:04/22/2024 10:00:00 AM Scheduled Provider:GAVIOTA AADMES PA-C Location:[facility] Appointment Type:URO Office Visit [facility] evaluation note* Diagnosis Type [...] use of insulin (CMS/[facility]) Non-seasonal allergic rhinitis, unspecified trigger Type 2 diabetes mellitus with unspecified complications (CMS/[facility]) Anxiety and depression ([facility]) Gastro-esophageal reflux disease without esophagitis Edema, unspecified Edema Diabetic polyneuropathy associated with type 2 diabetes mellitus ([facility]) Chronic obstructive pulmonary disease, unspecified ([facility]) Pulmonary emphysema, unspecified emphysema type ([facility]) Bilateral lower extremity edema Tobacco user Tobacco use disorder Hyperpigmentation of skin Other dyschromia documented in this encounter [facility] HealthcareEvaluation note* Diagnosis Obstructive sleep apnea- Primary Obstructive sleep apnea (adult) (pediatric) Pulmonary emphysema, unspecified emphysema type ([facility]) Primary hypertension ([facility]) Unspecified essential hypertension Type 2 diabetes mellitus with complication, with long-term current use of insulin ([facility]) Anxiety and depression ([facility]) Bilateral lower extremity edema Pulmonary emphysema, unspecified emphysema type ([facility])- Primary Primary hypertension ([facility]) Unspecified essential hypertension Class 3 severe obesity with serious comorbidity and body mass index (BMI) of 50.0 to 59.9 in adult,unspecified obesity type ([facility]) Obstructive sleep apnea Obstructive sleep apnea (adult) (pediatric) Pulmonary hypertension ([facility]) Other chronic pulmonary heart diseases Tobacco user Tobacco use disorder Cardiomegaly Primary hypertension ([facility])- Primary Unspecified essential hypertension Gastroesophageal reflux disease, unspecified whether esophagitis present Type 2 diabetes mellitus with complication, with long-term current use of insulin ([facility]) Mixed hyperlipidemia ([facility]) Mixed hyperlipidemia Tobacco user Tobacco use disorder Encounter for screening mammogram for malignant neoplasm of breast Chronic obstructive pulmonary disease, unspecified ([facility]) Other specified chronic obstructive pulmonary disease ([facility]) Anxiety and depression ([facility]) Edema, unspecified Edema Hyperlipidemia, unspecified ([facility]) Diabetic polyneuropathy associated with type 2 diabetes mellitus ([facility]) Gout, unspecified cause, unspecified chronicity, unspecified site Non-seasonal allergic rhinitis, unspecified trigger Bilateral lower extremity edema COPD exacerbation ([facility]) Obstructive chronic bronchitis with exacerbation Pulmonary emphysema, unspecified emphysema type ([facility]) Venous insufficiency Unspecified venous (peripheral) insufficiency Candidiasis of breast COPD exacerbation ([facility])- Primary Obstructive chronic bronchitis with exacerbation Pulmonary hypertension ([facility]) Other chronic pulmonary heart diseases Class 3 severe obesity with serious comorbidity and body mass index (BMI) of 50.0 to 59.9 in adult,unspecified obesity type (CMS/[facility]) Encounter for subsequent annual wellness visit (AWV) in Medicare patient- Primary Type 2 diabetes mellitus with unspecified complications (CMS/HCC) Pulmonary emphysema, unspecified emphysema type (CMS/HCC) Moderate persistent asthma without complication (CMS/HCC) Primary hypertension (CMS/HCC) Unspecified essential hypertension Type 2 diabetes mellitus with complication, with long-term current use of insulin (CMS/[facility]) Class 3 severe obesity with serious comorbidity and body mass index (BMI) of 50.0 to 59.9 in adult,unspecified obesity type (CMS/HCC) Tobacco user Tobacco use disorder Other headache syndrome Malignant neoplasm of cervix uteri, unspecified (CMS/HCC) Other specified disorders of adrenal gland (CMS/[facility]) Major depressive disorder, single episode, mild (HCC) (CMS/[facility]) Major depressive disorder, single episode, mild Non-pressure chronic ulcer of other part of left lower leg with fat layer exposed (CMS/[facility]) Chronic respiratory failure, unspecified whether with hypoxia or hypercapnia (CMS/[facility]) Disorder of adrenal gland, unspecified (CMS/[facility]) Non-pressure chronic ulcer of other part of right lower leg limited to breakdown of skin (CMS/[facility]) Non-recurrent acute suppurative otitis media of left ear without spontaneous rupture of tympanic membrane Primary hypertension ([facility])- Primary Unspecified essential hypertension Insomnia Insomnia, unspecified Type 2 diabetes mellitus with complication, with long-term current use of insulin (CMS/HCC) Non-seasonal allergic rhinitis, unspecified trigger Type 2 diabetes mellitus with unspecified complications (CMS/[facility]) Anxiety and depression (CMS/[facility]) Gastro-esophageal reflux disease without esophagitis Edema, unspecified Edema Diabetic polyneuropathy associated with type 2 diabetes mellitus (CMS/[facility]) Chronic obstructive pulmonary disease, unspecified (CMS/HCC) Pulmonary emphysema, unspecified emphysema type (CMS/HCC) Bilateral lower extremity edema Tobacco user Tobacco use disorder Hyperpigmentation of skin Other dyschromia Type 2 diabetes mellitus with hyperglycemia, with long-term current use of insulin (CMS/[facility])- Primary Encounter for dietary consultation Vitamin D deficiency Primary hypertension (CMS/HCC) Unspecified essential hypertension Insulin long-term use ([facility]) Encounter for long-term (current) use of insulin Hyperlipemia, mixed (CMS/[facility]) Mixed hyperlipidemia Microalbuminuria Proteinuria Class 3 severe obesity due to excess calories with serious comorbidity and body mass index (BMI) of50.0 to 59.9 in adult ([facility]) documented in this encounter [facility] HealthcareEvaluation note* Diagnosis Hyperlipidemia, unspecified ([facility]) Bilateral lower extremity edema documented in this encounter [facility] HealthcareEvaluation note* Diagnosis Vitamin D deficiency, unspecified documented in this encounter [facility] HealthcareEvaluation note* Diagnosis Obstructive sleep apnea- Primary Obstructive sleep apnea (adult) (pediatric) Pulmonary emphysema, unspecified emphysema type ([facility]) Primary hypertension ([facility]) Unspecified essential hypertension Type 2 diabetes mellitus with complication, with long-term current use of insulin ([facility]) Anxiety and depression ([facility]) Bilateral lower extremity edema Pulmonary emphysema, unspecified emphysema type ([facility])- Primary Primary hypertension ([facility]) Unspecified essential hypertension Class 3 severe obesity with serious comorbidity and body mass index (BMI) of 50.0 to 59.9 in adult,unspecified obesity type ([facility]) Obstructive sleep apnea Obstructive sleep apnea (adult) (pediatric) Pulmonary hypertension ([facility]) Other chronic pulmonary heart diseases Tobacco user Tobacco use disorder Cardiomegaly Primary hypertension ([facility])- Primary Unspecified essential hypertension Gastroesophageal reflux disease, unspecified whether esophagitis present Type 2 diabetes mellitus with complication, with long-term current use of insulin ([facility]) Mixed hyperlipidemia ([facility]) Mixed hyperlipidemia Tobacco user Tobacco use disorder Encounter for screening mammogram for malignant neoplasm of breast Chronic obstructive pulmonary disease, unspecified ([facility]) Other specified chronic obstructive pulmonary disease ([facility]) Anxiety and depression ([facility]) Edema, unspecified Edema Hyperlipidemia, unspecified ([facility]) Diabetic polyneuropathy associated with type 2 diabetes mellitus ([facility]) Gout, unspecified cause, unspecified chronicity, unspecified site Non-seasonal allergic rhinitis, unspecified trigger Bilateral lower extremity edema COPD exacerbation ([facility]) Obstructive chronic bronchitis with exacerbation Pulmonary emphysema, unspecified emphysema type ([facility]) Venous insufficiency Unspecified venous (peripheral) insufficiency Candidiasis of breast COPD exacerbation ([facility])- Primary Obstructive chronic bronchitis with exacerbation Pulmonary hypertension ([facility]) Other chronic pulmonary heart diseases Class 3 severe obesity with serious comorbidity and body mass index (BMI) of 50.0 to 59.9 in adult,unspecified obesity type ([facility]) Encounter for subsequent annual wellness visit (AWV) [...] episode, mild (HCC) (CMS/[facility]) Major depressive disorder, single episode, mild Non-pressure chronic ulcer of other part of left lower leg with fat layer exposed (CMS/[facility]) Chronic respiratory failure, unspecified whether with hypoxia or hypercapnia (CMS/[facility]) Disorder of adrenal gland, unspecified (CMS/[facility]) Non-pressure chronic ulcer of other part of right lower leg limited to breakdown of skin (CMS/[facility]) Non-recurrent acute suppurative otitis media of left ear without spontaneous rupture of tympanic membrane Primary hypertension (CMS/HCC)- Primary Unspecified essential hypertension Insomnia Insomnia, unspecified Type 2 diabetes mellitus with complication, with long-term current use of insulin (CMS/HCC) Non-seasonal allergic rhinitis, unspecified trigger Type 2 diabetes mellitus with unspecified complications (CMS/HCC) Anxiety and depression (CMS/[facility]) Gastro-esophageal reflux disease without esophagitis Edema, unspecified Edema Diabetic polyneuropathy associated with type 2 diabetes mellitus (CMS/[facility]) Chronic obstructive pulmonary disease, unspecified (CMS/HCC) Pulmonary [...] 50.0 to 59.9 in adult,unspecified obesity type ([facility]/HCC) Obstructive sleep apnea Obstructive sleep apnea (adult) (pediatric) Pulmonary hypertension (CMS/HCC) Other chronic pulmonary heart diseases Tobacco user Tobacco use disorder Cardiomegaly Primary hypertension (CMS/HCC)- Primary Unspecified essential hypertension Gastroesophageal reflux disease, unspecified whether esophagitis present Type 2 diabetes mellitus with complication, with long-term current use of insulin (CMS/[facility]) Mixed hyperlipidemia (CMS/HCC) Mixed hyperlipidemia Tobacco user Tobacco use disorder Encounter for screening mammogram for malignant neoplasm of breast Chronic obstructive pulmonary disease, unspecified (CMS/[facility]) Other specified chronic obstructive pulmonary disease (CMS/[facility]) Anxiety and depression (CMS/[facility]) Edema, unspecified Edema Hyperlipidemia, unspecified (CMS/[facility]) Diabetic polyneuropathy associated with type 2 diabetes mellitus (CMS/[facility]) Gout, unspecified cause, unspecified chronicity, unspecified site Non-seasonal allergic rhinitis, unspecified trigger Bilateral lower extremity edema COPD exacerbation (CMS/[facility]) Obstructive chronic bronchitis with exacerbation Pulmonary emphysema, unspecified emphysema type (CMS/HCC) Venous insufficiency Unspecified venous (peripheral) insufficiency Candidiasis of breast COPD exacerbation (CMS/[facility])- Primary Obstructive chronic bronchitis with exacerbation Pulmonary hypertension (CMS/HCC) Other chronic pulmonary heart diseases Class 3 severe obesity with serious comorbidity and body mass index (BMI) of 50.0 to 59.9 in adult,unspecified obesity type ([facility]) Encounter for subsequent annual wellness visit (AWV) in Medicare patient- Primary Type 2 diabetes mellitus with unspecified complications (CMS/[facility]) Pulmonary emphysema, unspecified emphysema type (CMS/HCC) Moderate persistent asthma without complication (CMS/HCC) Primary hypertension (CMS/[facility]) Unspecified essential hypertension Type 2 diabetes mellitus with complication, with long-term current use of insulin ([facility]) Class 3 severe obesity with serious comorbidity and body mass index (BMI) of 50.0 to 59.9 in adult,unspecified obesity type ([facility]/HCC) Tobacco user Tobacco use disorder Other headache syndrome Malignant neoplasm of cervix uteri, unspecified (CMS/[facility]) Other specified disorders of adrenal gland (CMS/[facility]) Major depressive disorder, single episode, mild (HCC) (CMS/[facility]) Major depressive disorder, single episode, mild Non-pressure [...] membrane Primary hypertension (CMS/[facility])- Primary Unspecified essential hypertension Insomnia Insomnia, unspecified Type 2 diabetes mellitus with complication, with long-term current use of insulin (CMS/HCC) Non-seasonal allergic rhinitis, unspecified trigger Type 2 diabetes mellitus with unspecified complications (CMS/HCC) Anxiety and depression (CMS/[facility]) Gastro-esophageal reflux disease without esophagitis Edema, unspecified Edema Diabetic polyneuropathy associated with type 2 diabetes mellitus (CMS/[facility]) Chronic obstructive pulmonary disease, unspecified (CMS/[facility]) Pulmonary emphysema, unspecified emphysema type (CMS/HCC) Bilateral lower extremity edema Tobacco user Tobacco use disorder Hyperpigmentation of skin Other dyschromia Primary hypertension (CMS/[facility])- Primary Unspecified essential hypertension Diabetic polyneuropathy associated with type 2 diabetes mellitus (CMS/[facility]) Pulmonary emphysema, unspecified emphysema type (CMS/HCC) Critical limb ischemia of right lower extremity (CMS/[facility]) PAD (peripheral artery disease) ([facility]) Unspecified peripheral vascular disease Gastroesophageal reflux disease, unspecified whether esophagitis present Bilateral lower extremity edema Venous ulcer of right leg (CMS/[facility]) Type 2 diabetes mellitus with complication, with long-term current use of insulin (CMS/[facility]) Tobacco user Tobacco use disorder Encounter for smoking cessation counseling Kidney stone Calculus of kidney Adrenal mass 1 cm to 4 cm in diameter ([facility]) Radiculopathy, lumbar region Thoracic or lumbosacral neuritis or radiculitis, unspecified Non-seasonal allergic rhinitis, unspecified trigger Type 2 diabetes mellitus with unspecified complications (CMS/[facility]) documented in this encounter [facility] HealthcareEvaluation note* Diagnosis Obstructive sleep apnea- Primary Obstructive sleep apnea (adult) (pediatric) Pulmonary emphysema, unspecified emphysema type (CMS/HCC) Primary hypertension (CMS/[facility]) Unspecified essential hypertension Type 2 diabetes mellitus with complication, with long-term current use of insulin (CMS/[facility]) Anxiety and depression (CMS/[facility]) Bilateral lower extremity edema Pulmonary emphysema, unspecified [...] pulmonary disease, unspecified (CMS/[facility]) Other specified chronic obstructive pulmonary disease (CMS/HCC) Anxiety and depression (CMS/[facility]) Edema, unspecified Edema Hyperlipidemia, unspecified (CMS/[facility]) Diabetic polyneuropathy associated with type 2 diabetes mellitus (CMS/[facility]) Gout, unspecified cause, unspecified chronicity, unspecified site [...] 50.0 to 59.9 in adult,unspecified obesity type ([facility]/HCC) Encounter for subsequent annual wellness visit (AWV) in Medicare patient- Primary Type 2 diabetes mellitus with unspecified complications (CMS/HCC) Pulmonary emphysema, unspecified emphysema type (CMS/HCC) Moderate persistent asthma without complication (CMS/HCC) Primary hypertension (CMS/HCC) Unspecified essential hypertension Type 2 diabetes mellitus with complication, with long-term current use of insulin (CMS/[facility]) Class 3 severe obesity with serious comorbidity and body mass index (BMI) of 50.0 to 59.9 in adult,unspecified obesity type (CMS/HCC) Tobacco user Tobacco use disorder Other headache syndrome Malignant neoplasm of cervix uteri, unspecified (CMS/[facility]) Other specified disorders of adrenal gland (CMS/[facility]) Major depressive disorder, single episode, mild (HCC) (CMS/[facility]) Major depressive disorder, single episode, mild Non-pressure chronic ulcer of other part of left lower leg with fat layer exposed (CMS/[facility]) Chronic respiratory failure, unspecified whether with hypoxia or hypercapnia (CMS/HCC) Disorder of adrenal gland, unspecified (CMS/HCC) Non-pressure chronic ulcer of other part of right lower leg limited to breakdown of skin (CMS/HCC) Non-recurrent acute suppurative otitis media of left ear without spontaneous rupture of tympanic membrane Primary hypertension ([facility]/HCC)- Primary Unspecified essential hypertension Insomnia Insomnia, unspecified Type 2 diabetes mellitus with complication, with long-term current use of insulin (CMS/[facility]) Non-seasonal allergic rhinitis, unspecified trigger Type 2 diabetes mellitus with unspecified complications (CMS/[facility]) Anxiety and depression (CMS/[facility]) Gastro-esophageal reflux disease without esophagitis Edema, unspecified Edema Diabetic polyneuropathy associated with type 2 diabetes mellitus (CMS/[facility]) Chronic obstructive pulmonary disease, unspecified (CMS/[facility]) Pulmonary emphysema, unspecified emphysema type (CMS/[facility]) Bilateral lower extremity edema Tobacco user Tobacco use disorder Hyperpigmentation of skin Other dyschromia Primary hypertension (CMS/[facility])- Primary Unspecified essential hypertension Diabetic polyneuropathy associated with type 2 diabetes mellitus (CMS/[facility]) Pulmonary emphysema, unspecified emphysema type ([facility]) Critical limb ischemia of right lower extremity ([facility]) PAD (peripheral artery disease) ([facility]) Unspecified peripheral vascular disease Gastroesophageal reflux disease, unspecified whether esophagitis present Bilateral lower extremity edema Venous ulcer of right leg ([facility]) Type 2 diabetes mellitus with complication, with long-term current use of insulin ([facility]) Tobacco user Tobacco use disorder Encounter for smoking cessation counseling Kidney stone Calculus of kidney Adrenal mass 1 cm to 4 cm in diameter ([facility]) Radiculopathy, lumbar region Thoracic or lumbosacral neuritis or radiculitis, unspecified Non-seasonal allergic rhinitis, unspecified trigger Type 2 diabetes mellitus with unspecified complications (CMS/HCC) Anxiety and depression (CMS/[facility])- Primary Morbid (severe) obesity due to excess calories (CMS/[facility]) Body mass index (BMI) 50.0-59.9, adult ([facility]) Malignant neoplasm of cervix uteri, unspecified (CMS/[facility]) Diabetic polyneuropathy associated with type 2 diabetes mellitus (CMS/[facility]) Chronic diastolic heart failure ([facility] Chronic diastolic heart failure Primary hypertension ([facility]) Unspecified essential hypertension 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 ([facility]) Gastroesophageal reflux disease, unspecified whether esophagitis present Bilateral lower extremity edema Type 2 diabetes mellitus with complication, with long-term current use of insulin ([facility]) Tobacco user Tobacco use disorder Mixed hyperlipidemia ([facility]) Mixed hyperlipidemia Gout, unspecified cause, unspecified chronicity, unspecified site Vitamin deficiency Unspecified vitamin deficiency Gastro-esophageal reflux disease without esophagitis Edema, unspecified Edema Hyperlipidemia, unspecified ([facility]) Encounter for smoking cessation counseling Venous ulcer of right leg ([facility]) Antibiotic-induced yeast infection documented in this encounter [facility] HealthcareEvaluation note* Diagnosis Obstructive sleep apnea- Primary Obstructive sleep apnea (adult) (pediatric) Pulmonary emphysema, unspecified emphysema type ([facility]) Primary hypertension ([facility]) Unspecified essential hypertension Type 2 diabetes mellitus with complication, with long-term current use of insulin ([facility]) Anxiety and depression ([facility]) Bilateral lower extremity edema Pulmonary emphysema, unspecified emphysema type ([facility])- Primary Primary hypertension ([facility]) Unspecified essential hypertension Class 3 severe obesity with serious comorbidity and body mass index (BMI) of 50.0 to 59.9 in adult,unspecified obesity type Obstructive sleep apnea Obstructive sleep apnea (adult) (pediatric) Pulmonary hypertension ([facility]) Other chronic pulmonary heart diseases Tobacco user Tobacco use disorder Cardiomegaly Primary hypertension ([facility])- Primary Unspecified essential hypertension Gastroesophageal reflux disease, unspecified whether esophagitis present Type 2 diabetes mellitus with complication, with long-term current use of insulin ([facility]) Mixed hyperlipidemia ([facility]) Mixed hyperlipidemia Tobacco user Tobacco use disorder Encounter for screening mammogram for malignant neoplasm of breast Chronic obstructive pulmonary disease, unspecified Other specified chronic obstructive pulmonary disease Anxiety and depression ([facility]) Edema, unspecified Edema Hyperlipidemia, unspecified ([facility]) Diabetic polyneuropathy associated with type 2 diabetes mellitus ([facility]) Gout, unspecified cause, unspecified chronicity, unspecified site Non-seasonal allergic rhinitis, unspecified trigger Bilateral lower extremity edema COPD exacerbation ([facility]) Obstructive chronic bronchitis with exacerbation Pulmonary emphysema, unspecified emphysema type ([facility]) Venous insufficiency Unspecified venous (peripheral) insufficiency Candidiasis of breast [facility] Primary Obstructive chronic bronchitis with exacerbation Pulmonary hypertension (CMS/[facility]) Other chronic pulmonary heart diseases Class 3 severe obesity with serious comorbidity and body mass index (BMI) of 50.0 to 59.9 in adult,unspecified obesity type Encounter for subsequent annual wellness visit (AWV) in Medicare patient- Primary Type 2 diabetes mellitus with unspecified complications Pulmonary emphysema, unspecified emphysema type (CMS/[facility]) Moderate persistent asthma without complication (CMS/[facility]) Primary hypertension ([facility]) Unspecified essential hypertension Type 2 diabetes mellitus with complication, with long-term current use of insulin ([facility]) Class 3 severe obesity with serious comorbidity and body mass index (BMI) of 50.0 to 59.9 in adult,unspecified obesity type Tobacco user Tobacco use disorder Other headache syndrome Malignant neoplasm of cervix uteri, unspecified Other specified disorders of adrenal gland Major depressive disorder, single episode, mild (HCC) ([facility]) Major depressive disorder, single episode, mild Non-pressure chronic ulcer of other part of left lower leg with fat layer exposed Chronic respiratory failure, unspecified whether with hypoxia or hypercapnia Disorder of adrenal gland, unspecified Non-pressure chronic ulcer of other part of right lower leg limited to breakdown of skin ([facility]) Non-recurrent acute suppurative otitis media of left ear without spontaneous rupture of tympanic membrane Primary hypertension ([facility])- Primary Unspecified essential hypertension Insomnia Insomnia, unspecified Type 2 diabetes mellitus with complication, with long-term current use of insulin (CMS/[facility]) Non-seasonal allergic rhinitis, unspecified trigger Type 2 diabetes mellitus with unspecified complications Anxiety and depression ([facility]) Gastro-esophageal reflux disease without esophagitis Edema, unspecified Edema Diabetic polyneuropathy associated with type 2 diabetes mellitus ([facility]) Chronic obstructive pulmonary disease, unspecified Pulmonary emphysema, unspecified emphysema type (CMS/HCC) Bilateral lower extremity edema Tobacco user Tobacco use disorder Hyperpigmentation of skin Other dyschromia Primary hypertension (CMS/HCC)- Primary Unspecified essential hypertension Diabetic polyneuropathy associated with type 2 diabetes mellitus (CMS/[facility]) Pulmonary emphysema, unspecified emphysema type (CMS/HCC) Critical limb ischemia of right lower extremity (CMS/[facility]) PAD (peripheral artery disease) ([facility]) Unspecified peripheral vascular disease Gastroesophageal reflux disease, unspecified whether esophagitis present Bilateral lower extremity edema Venous ulcer of right leg (CMS/[facility]) Type 2 diabetes mellitus with complication, with long-term current use of insulin ([facility]) Tobacco user Tobacco use disorder Encounter for smoking cessation counseling Kidney stone Calculus of kidney Adrenal mass 1 cm to 4 cm in diameter ([facility]) Radiculopathy, lumbar region Thoracic or lumbosacral neuritis or radiculitis, unspecified Non-seasonal allergic rhinitis, unspecified trigger Type 2 diabetes mellitus with unspecified complications Anxiety and depression ([facility])- Primary Morbid (severe) obesity due to excess calories ([facility]) Body mass index (BMI) 50.0-59.9, adult ([facility]) Malignant neoplasm of cervix uteri, unspecified Diabetic polyneuropathy associated with type 2 diabetes mellitus ([facility]) Chronic diastolic heart failure ([facility]) Chronic diastolic heart failure Primary hypertension ([facility]) Unspecified essential hypertension 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 Gastroesophageal reflux disease, unspecified whether esophagitis present Bilateral lower extremity edema Type 2 diabetes mellitus with complication, with long-term current use of insulin ([facility]) Tobacco user Tobacco use disorder Mixed hyperlipidemia ([facility]) Mixed hyperlipidemia Gout, unspecified cause, unspecified chronicity, unspecified site Vitamin deficiency Unspecified vitamin deficiency Gastro-esophageal reflux disease without esophagitis Edema, unspecified Edema Hyperlipidemia, unspecified ([facility]) Encounter for smoking cessation counseling Venous ulcer of right leg ([facility]) Antibiotic-induced yeast infection Type 2 diabetes mellitus with hyperglycemia, with long-term current use of insulin ([facility])- Primary Encounter for dietary consultation Vitamin D deficiency Primary hypertension ([facility] Unspecified essential hypertension Insulin long-term use ([facility]) Encounter for long-term (current) use of insulin Hyperlipemia, mixed ([facility]) Mixed hyperlipidemia Microalbuminuria Proteinuria Class 3 severe obesity due to excess calories with serious comorbidity and body mass index (BMI) of50.0 to 59.9 in adult documented in this encounter [facility] HealthcareEvaluation note* Diagnosis Obstructive sleep apnea- Primary Obstructive sleep apnea (adult) (pediatric) Pulmonary emphysema, unspecified emphysema type ([facility]) Primary hypertension ([facility]) Unspecified essential hypertension Type 2 diabetes mellitus with complication, with long-term current use of insulin ([facility]) Anxiety and depression ([facility]) Bilateral lower extremity edema Pulmonary emphysema, unspecified emphysema type ([facility])- Primary Primary hypertension (CMS/[facility]) Unspecified essential hypertension Class 3 severe obesity with serious comorbidity and body mass index (BMI) of 50.0 to 59.9 in adult,unspecified obesity type Obstructive sleep apnea Obstructive sleep apnea (adult) (pediatric) Pulmonary hypertension ([facility]) Other chronic pulmonary heart diseases Tobacco user Tobacco use disorder Cardiomegaly Primary hypertension ([facility])- Primary Unspecified essential hypertension Gastroesophageal reflux disease, unspecified whether esophagitis present Type 2 diabetes mellitus with complication, with long-term current use of insulin ([facility]) Mixed hyperlipidemia ([facility]) Mixed hyperlipidemia Tobacco user Tobacco use disorder Encounter for screening mammogram for malignant neoplasm of breast Chronic obstructive pulmonary disease, unspecified Other specified chronic obstructive pulmonary disease Anxiety and depression ([facility]) Edema, unspecified Edema Hyperlipidemia, unspecified ([facility]) Diabetic polyneuropathy associated with type 2 diabetes mellitus ([facility]) Gout, unspecified cause, unspecified chronicity, unspecified site Non-seasonal allergic rhinitis, unspecified trigger Bilateral lower extremity edema COPD exacerbation ([facility]) Obstructive chronic bronchitis with exacerbation Pulmonary emphysema, unspecified emphysema type ([facility]) Venous insufficiency Unspecified venous (peripheral) insufficiency Candidiasis of breast COPD exacerbation ([facility])- Primary Obstructive chronic bronchitis with exacerbation Pulmonary hypertension ([facility]) Other chronic pulmonary heart diseases Class 3 severe obesity with serious comorbidity and body mass index (BMI) of 50.0 to 59.9 in adult,unspecified obesity type Encounter for subsequent annual wellness visit (AWV) in Medicare patient- Primary Type 2 diabetes mellitus with unspecified complications Pulmonary emphysema, unspecified emphysema type ([facility]) Moderate persistent asthma without complication ([facility]) Primary hypertension ([facility]) Unspecified essential hypertension Type 2 diabetes mellitus with complication, with long-term current use of insulin ([facility]) Class 3 severe obesity with serious comorbidity and body mass index (BMI) of 50.0 to 59.9 in adult,unspecified obesity type Tobacco user Tobacco use disorder Other headache syndrome Malignant neoplasm of cervix uteri, unspecified Other specified disorders of adrenal gland Major depressive disorder, single episode, mild (HCC) ([facility]) Major depressive disorder, single episode, mild Non-pressure chronic ulcer of other part of left lower leg with fat layer exposed Chronic respiratory failure, unspecified whether with hypoxia or hypercapnia Disorder of adrenal gland, unspecified Non-pressure chronic ulcer of other part of right lower leg limited to breakdown of skin ([facility]) Non-recurrent acute suppurative otitis media of left ear without spontaneous rupture of tympanic membrane Primary hypertension ([facility])- Primary Unspecified essential hypertension Insomnia Insomnia, unspecified Type 2 diabetes mellitus with complication, with long-term current use of insulin ([facility]) Non-seasonal allergic rhinitis, unspecified trigger Type 2 diabetes mellitus with unspecified complications Anxiety and depression ([facility]) Gastro-esophageal reflux disease without esophagitis Edema, unspecified Edema Diabetic polyneuropathy associated with type 2 diabetes mellitus ([facility]) Chronic obstructive pulmonary disease, unspecified Pulmonary emphysema, unspecified emphysema type ([facility]) Bilateral lower extremity edema Tobacco user Tobacco use disorder Hyperpigmentation of skin Other dyschromia Primary hypertension ([facility])- Primary Unspecified essential hypertension Diabetic polyneuropathy associated with type 2 diabetes mellitus ([facility]) Pulmonary emphysema, unspecified emphysema type ([facility]) Critical limb ischemia of right lower extremity ([facility]) PAD (peripheral artery disease) ([facility]) Unspecified peripheral vascular disease Gastroesophageal reflux disease, unspecified whether esophagitis present Bilateral lower extremity edema Venous ulcer of right leg ([facility]) Type 2 diabetes mellitus with complication, with long-term current use of insulin ([facility]) Tobacco user Tobacco use disorder Encounter for smoking cessation counseling Kidney stone Calculus of kidney Adrenal mass 1 cm to 4 cm in diameter ([facility]) Radiculopathy, lumbar region Thoracic or lumbosacral neuritis or radiculitis, unspecified Non-seasonal allergic rhinitis, unspecified trigger Type 2 diabetes mellitus with unspecified complications Anxiety and depression ([facility])- Primary Morbid (severe) obesity due to excess calories ([facility]) Body mass index (BMI) 50.0-59.9, adult ([facility]) Malignant neoplasm of cervix uteri, unspecified Diabetic polyneuropathy associated with type 2 diabetes mellitus ([facility] Chronic diastolic heart failure ([facility] Chronic diastolic heart failure Primary hypertension ([facility]) Unspecified essential hypertension 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 Gastroesophageal reflux disease, unspecified whether esophagitis present Bilateral lower extremity edema Type 2 diabetes mellitus with complication, with long-term current use of insulin ([facility]) Tobacco user Tobacco use disorder Mixed hyperlipidemia ([facility]) Mixed hyperlipidemia Gout, unspecified cause, unspecified chronicity, unspecified site Vitamin deficiency Unspecified vitamin deficiency Gastro-esophageal reflux disease without esophagitis Edema, unspecified Edema Hyperlipidemia, unspecified ([facility]) Encounter for smoking cessation counseling Venous ulcer of right leg ([facility]) Antibiotic-induced yeast infection Chronic obstructive pulmonary disease, unspecified documented in this encounter [facility] HealthcareEvaluation note* Diagnosis Obstructive sleep apnea- Primary Obstructive sleep apnea (adult) (pediatric) Pulmonary emphysema, unspecified emphysema type ([facility]) Primary hypertension ([facility]) Unspecified essential hypertension Type 2 diabetes mellitus with complication, with long-term current use of insulin ([facility]) Anxiety and depression ([facility]) Bilateral lower extremity edema Pulmonary emphysema, unspecified emphysema type ([facility])- Primary Primary hypertension ([facility]) Unspecified essential hypertension Class 3 severe obesity with serious comorbidity and body mass index (BMI) of 50.0 to 59.9 in adult,unspecified obesity type Obstructive sleep apnea Obstructive sleep apnea (adult) (pediatric) Pulmonary hypertension ([facility]) Other chronic pulmonary heart diseases Tobacco user Tobacco use disorder Cardiomegaly Primary hypertension ([facility])- Primary Unspecified essential hypertension Gastroesophageal reflux disease, unspecified whether esophagitis present Type 2 diabetes mellitus with complication, with long-term current use of insulin ([facility]) Mixed hyperlipidemia ([facility]) Mixed hyperlipidemia Tobacco user Tobacco use disorder Encounter for screening mammogram for malignant neoplasm of breast Chronic obstructive pulmonary disease, unspecified Other specified chronic obstructive pulmonary disease Anxiety and depression ([facility]) Edema, unspecified Edema Hyperlipidemia, unspecified ([facility]) Diabetic polyneuropathy associated with type 2 diabetes mellitus ([facility]) Gout, unspecified cause, unspecified chronicity, unspecified site Non-seasonal allergic rhinitis, unspecified trigger Bilateral lower extremity edema COPD exacerbation ([facility]) Obstructive chronic bronchitis with exacerbation Pulmonary emphysema, unspecified emphysema type ([facility]) Venous insufficiency Unspecified venous (peripheral) insufficiency Candidiasis of breast COPD exacerbation ([facility] Primary Obstructive chronic bronchitis with exacerbation Pulmonary hypertension ([facility]) Other chronic pulmonary heart diseases Class 3 severe obesity with serious comorbidity and body mass index (BMI) of 50.0 to 59.9 in adult,unspecified obesity type Encounter for subsequent annual wellness visit (AWV) in Medicare patient- Primary Type 2 diabetes mellitus with unspecified complications Pulmonary emphysema, unspecified emphysema type ([facility]) Moderate persistent asthma without complication ([facility]) Primary hypertension ([facility]) Unspecified essential hypertension Type 2 diabetes mellitus with complication, with long-term current use of insulin ([facility]) Class 3 severe obesity with serious comorbidity and body mass index (BMI) of 50.0 to 59.9 in adult,unspecified obesity type Tobacco user Tobacco use disorder Other headache syndrome Malignant neoplasm of cervix uteri, unspecified Other specified disorders of adrenal gland Major depressive disorder, single episode, mild (HCC) ([facility]) Major depressive disorder, single episode, mild Non-pressure chronic ulcer of other part of left lower leg with fat layer exposed Chronic respiratory failure, unspecified whether with hypoxia or hypercapnia Disorder of adrenal gland, unspecified Non-pressure chronic ulcer of other part of right lower leg limited to breakdown of skin ([facility]) Non-recurrent acute suppurative otitis media of left ear without spontaneous rupture of tympanic membrane Primary hypertension ([facility])- Primary Unspecified essential hypertension Insomnia Insomnia, unspecified Type 2 diabetes mellitus with complication, with long-term current use of insulin ([facility]) Non-seasonal allergic rhinitis, unspecified trigger Type 2 diabetes mellitus with unspecified complications Anxiety and depression ([facility]) Gastro-esophageal reflux disease without esophagitis Edema, unspecified Edema Diabetic polyneuropathy associated with type 2 diabetes mellitus ([facility]) Chronic obstructive pulmonary disease, unspecified Pulmonary emphysema, unspecified emphysema type ([facility]) Bilateral lower extremity edema Tobacco user Tobacco use disorder Hyperpigmentation of skin Other dyschromia Primary hypertension ([facility])- Primary Unspecified essential hypertension Diabetic polyneuropathy associated with type 2 diabetes mellitus ([facility]) Pulmonary emphysema, unspecified emphysema type ([facility]) Critical limb ischemia of right lower extremity ([facility]) PAD (peripheral artery disease) ([facility]) Unspecified peripheral vascular disease Gastroesophageal reflux disease, unspecified whether esophagitis present Bilateral lower extremity edema Venous ulcer of right leg ([facility]) Type 2 diabetes mellitus with complication, with long-term current use of insulin ([facility]) Tobacco user Tobacco use disorder Encounter for smoking cessation counseling Kidney stone Calculus of kidney Adrenal mass 1 cm to 4 cm in diameter ([facility]) Radiculopathy, lumbar region Thoracic or lumbosacral neuritis or radiculitis, unspecified Non-seasonal allergic rhinitis, unspecified trigger Type 2 diabetes mellitus with unspecified complications Anxiety and depression ([facility])- Primary Morbid (severe) obesity due to excess calories ([facility]) Body mass index (BMI) 50.0-59.9, adult ([facility]) Malignant neoplasm of cervix uteri, unspecified Diabetic polyneuropathy associated with type 2 diabetes mellitus ([facility]) Chronic diastolic heart failure ([facility] Chronic diastolic heart failure Primary hypertension ([facility]) Unspecified essential hypertension 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 Gastroesophageal reflux disease, unspecified whether esophagitis present Bilateral lower extremity edema Type 2 diabetes mellitus with complication, with long-term current use of insulin ([facility]) Tobacco user Tobacco use disorder Mixed hyperlipidemia ([facility]) Mixed hyperlipidemia Gout, unspecified cause, unspecified chronicity, unspecified site Vitamin deficiency Unspecified vitamin deficiency Gastro-esophageal reflux disease without esophagitis Edema, unspecified Edema Hyperlipidemia, unspecified ([facility]) Encounter for smoking cessation counseling Venous ulcer of right leg ([facility]) Antibiotic-induced yeast infection Primary hypertension ([facility])- Primary Unspecified essential hypertension Diabetic polyneuropathy associated with type 2 diabetes mellitus ([facility] Chronic diastolic heart failure ([facility]) Chronic diastolic heart failure Bilateral lower extremity edema Morbid (severe) obesity due to excess calories ([facility]) Type 2 diabetes mellitus with complication, with long-term current use of insulin ([facility]) Anxiety and depression ([facility]) Cigarette nicotine dependence without complication Encounter for screening mammogram for malignant neoplasm of breast Insomnia Insomnia, unspecified Non-seasonal allergic rhinitis, unspecified trigger Type 2 diabetes mellitus with unspecified complications Vitamin D deficiency, unspecified Gastro-esophageal reflux disease without esophagitis PAD (peripheral artery disease) ([facility]) Unspecified peripheral vascular disease Gastroesophageal reflux disease, unspecified whether esophagitis present Venous ulcer of right leg ([facility]) documented in this encounter [facility] HealthcareEvaluation note* Diagnosis Obstructive sleep apnea- Primary Obstructive sleep apnea (adult) (pediatric) Pulmonary emphysema, unspecified emphysema type (HCC) Primary hypertension Unspecified essential hypertension Type 2 diabetes mellitus with complication, with long-term current use of insulin ([facility]) Anxiety and depression Bilateral lower extremity edema Pulmonary emphysema, unspecified emphysema type (HCC)- Primary Primary hypertension Unspecified essential hypertension Class 3 severe obesity with serious comorbidity and body mass index (BMI) of 50.0 to 59.9 in adult,unspecified obesity type ([facility] 50.0 to 59.9 in adult,unspecified obesity type ([facility] [...] 50.0 to 59.9 in adult,unspecified obesity type ([facility]) Tobacco user Tobacco use disorder Other headache [...] insulin ([facility]) Non-seasonal allergic rhinitis, unspecified trigger Type 2 [...] 2 diabetes mellitus ([facility]) Pulmonary emphysema, unspecified emphysema type ([facility]) Critical limb ischemia of right lower extremity ([facility]) PAD (peripheral artery disease) Unspecified peripheral vascular disease Gastroesophageal reflux disease, unspecified whether esophagitis present Bilateral lower extremity edema Venous ulcer of right leg (HCC) Type 2 diabetes mellitus with complication, with long-term current use of insulin ([facility]) Tobacco user Tobacco use disorder Encounter for smoking cessation counseling Kidney stone Calculus of kidney Adrenal mass 1 cm to 4 cm in diameter ([facility]) Radiculopathy, lumbar region Thoracic or lumbosacral neuritis or radiculitis, unspecified Non-seasonal allergic rhinitis, unspecified trigger Type 2 diabetes mellitus with unspecified complications ([facility]) Anxiety and depression- Primary Morbid (severe) obesity due to excess calories ([facility]) Body mass index (BMI) 50.0-59.9, adult ([facility]) Malignant neoplasm of cervix uteri, unspecified ([facility]) Diabetic polyneuropathy associated with type 2 diabetes mellitus ([facility]) Chronic diastolic heart failure (HCC) Chronic diastolic heart failure Primary hypertension Unspecified essential hypertension 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 ([facility]) Gastroesophageal reflux disease, unspecified whether esophagitis present Bilateral lower extremity edema Type 2 diabetes mellitus with complication, with long-term current use of insulin ([facility]) Tobacco user Tobacco use disorder Mixed hyperlipidemia [...] diabetes mellitus (HCC) Chronic diastolic heart failure ([facility]) Chronic diastolic heart failure Bilateral lower extremity edema Morbid (severe) obesity due to excess calories ([facility]) Type 2 diabetes mellitus with complication, with long-term current use of insulin ([facility]) Anxiety and depression Cigarette nicotine dependence without complication Encounter for screening mammogram for malignant neoplasm of breast Insomnia Insomnia, unspecified Non-seasonal allergic rhinitis, unspecified trigger Type 2 diabetes mellitus with unspecified complications ([facility]) Vitamin D deficiency, unspecified Gastro-esophageal reflux disease without esophagitis PAD (peripheral artery disease) Unspecified peripheral vascular disease Gastroesophageal reflux disease, unspecified whether esophagitis present Venous ulcer of right leg (HCC) Cellulitis of left lower extremity- Primary COPD exacerbation ([facility]) Obstructive chronic bronchitis with exacerbation Primary hypertension Unspecified essential hypertension Pulmonary hypertension ([facility]) Other chronic pulmonary heart diseases Morbid (severe) obesity due to excess calories ([facility]) Type 2 diabetes mellitus with complication, with long-term current use of insulin ([facility]) Anxiety and depression Fever, unspecified fever cause Hyperlipidemia, unspecified Tobacco user Tobacco use disorder Encounter for smoking cessation counseling documented in this encounter [facility] HealthcareEvaluation note* Diagnosis Obstructive sleep apnea- Primary Obstructive sleep apnea (adult) (pediatric) Pulmonary emphysema, unspecified emphysema type ([facility]) Primary hypertension ([facility]) Unspecified essential hypertension Type 2 diabetes mellitus with complication, with long-term current use of insulin ([facility]) Anxiety and depression ([facility]) Bilateral lower extremity edema Pulmonary emphysema, unspecified emphysema type ([facility])- Primary Primary hypertension ([facility]) Unspecified essential hypertension Class 3 severe obesity with serious comorbidity and body mass index (BMI) of 50.0 to 59.9 in adult,unspecified obesity type Obstructive sleep apnea Obstructive sleep apnea (adult) (pediatric) Pulmonary hypertension ([facility]) Other chronic pulmonary heart diseases Tobacco user Tobacco use disorder Cardiomegaly Primary hypertension ([facility])- Primary Unspecified essential hypertension Gastroesophageal reflux disease, unspecified whether esophagitis present Type 2 diabetes mellitus with complication, with long-term current use of insulin ([facility]) Mixed hyperlipidemia ([facility]) Mixed hyperlipidemia Tobacco user Tobacco use disorder Encounter for screening mammogram for malignant neoplasm of breast Chronic obstructive pulmonary disease, unspecified Other specified chronic obstructive pulmonary disease Anxiety and depression ([facility]) Edema, unspecified Edema Hyperlipidemia, unspecified ([facility]) Diabetic polyneuropathy associated with type 2 diabetes mellitus ([facility]) Gout, unspecified cause, unspecified chronicity, unspecified site Non-seasonal allergic rhinitis, unspecified trigger Bilateral lower extremity edema COPD exacerbation (CMS/[facility]) Obstructive chronic bronchitis with exacerbation Pulmonary emphysema, unspecified emphysema type (CMS/HCC) Venous insufficiency Unspecified venous (peripheral) insufficiency Candidiasis of breast COPD exacerbation (CMS/HCC)- Primary Obstructive chronic bronchitis with exacerbation Pulmonary hypertension (CMS/[facility]) Other chronic pulmonary heart diseases Class 3 severe obesity with serious comorbidity and body mass index (BMI) of 50.0 to 59.9 in adult,unspecified obesity type Encounter for subsequent annual wellness visit (AWV) in Medicare patient- Primary Type 2 diabetes mellitus with unspecified complications Pulmonary emphysema, unspecified emphysema type (CMS/[facility]) Moderate persistent asthma without complication (CMS/[facility]) Primary hypertension (CMS/[facility]) Unspecified essential hypertension Type 2 diabetes mellitus with complication, with long-term current use of insulin (CMS/[facility]) Class 3 severe obesity with serious comorbidity and body mass index (BMI) of 50.0 to 59.9 in adult,unspecified obesity type Tobacco user Tobacco use disorder Other headache syndrome Malignant neoplasm of cervix uteri, unspecified Other specified disorders of adrenal gland Major depressive disorder, single episode, mild (HCC) ([facility]) Major depressive disorder, single episode, mild Non-pressure chronic ulcer of other part of left lower leg with fat layer exposed Chronic respiratory failure, unspecified whether with hypoxia or hypercapnia Disorder of adrenal gland, unspecified Non-pressure chronic ulcer of other part of right lower leg limited to breakdown of skin (CMS/[facility]) Non-recurrent acute suppurative otitis media of left ear without spontaneous rupture of tympanic membrane Primary hypertension (CMS/[facility])- Primary Unspecified essential hypertension Insomnia Insomnia, unspecified Type 2 diabetes mellitus with complication, with long-term current use of insulin (CMS/[facility]) Non-seasonal allergic rhinitis, unspecified trigger Type 2 diabetes mellitus with unspecified complications Anxiety and depression (CMS/[facility]) Gastro-esophageal reflux disease without esophagitis Edema, unspecified Edema Diabetic polyneuropathy associated with type 2 diabetes mellitus (CMS/[facility]) Chronic obstructive pulmonary disease, unspecified Pulmonary emphysema, unspecified emphysema type (CMS/HCC) Bilateral lower extremity edema Tobacco user Tobacco use disorder Hyperpigmentation of skin Other dyschromia Primary hypertension (CMS/HCC)- Primary Unspecified essential hypertension Diabetic polyneuropathy associated with type 2 diabetes mellitus ([facility]) Pulmonary emphysema, unspecified emphysema type ([facility]) Critical limb ischemia of right lower extremity ([facility]) PAD (peripheral artery disease) ([facility]) Unspecified peripheral vascular disease Gastroesophageal reflux disease, unspecified whether esophagitis present Bilateral lower extremity edema Venous ulcer of right leg ([facility]) Type 2 diabetes mellitus with complication, with long-term current use of insulin ([facility]) Tobacco user Tobacco use disorder Encounter for smoking cessation counseling Kidney stone Calculus of kidney Adrenal mass 1 cm to 4 cm in diameter ([facility]) Radiculopathy, lumbar region Thoracic or lumbosacral neuritis or radiculitis, unspecified Non-seasonal allergic rhinitis, unspecified trigger Type 2 diabetes mellitus with unspecified complications Anxiety and depression ([facility])- Primary Morbid (severe) obesity due to excess calories ([facility]) Body mass index (BMI) 50.0-59.9, adult ([facility]) Malignant neoplasm of cervix uteri, unspecified Diabetic polyneuropathy associated with type 2 diabetes mellitus ([facility] Chronic diastolic heart failure ([facility] Chronic diastolic heart failure Primary hypertension ([facility]) Unspecified essential hypertension 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 Gastroesophageal reflux disease, unspecified whether esophagitis present Bilateral lower extremity edema Type 2 diabetes mellitus with complication, with long-term current use of insulin ([facility]) Tobacco user Tobacco use disorder Mixed hyperlipidemia ([facility]) Mixed hyperlipidemia Gout, unspecified cause, unspecified chronicity, unspecified site Vitamin deficiency Unspecified vitamin deficiency Gastro-esophageal reflux disease without esophagitis Edema, unspecified Edema Hyperlipidemia, unspecified ([facility]) Encounter for smoking cessation counseling Venous ulcer of right leg ([facility]) Antibiotic-induced yeast infection Primary hypertension ([facility])- Primary Unspecified essential hypertension Diabetic polyneuropathy associated with type 2 diabetes mellitus ([facility]) Chronic diastolic heart failure ([facility]) Chronic diastolic heart failure Bilateral lower extremity edema Morbid (severe) obesity due to excess calories ([facility]) Type 2 diabetes mellitus with complication, with long-term current use of insulin ([facility]) Anxiety and depression ([facility]) Cigarette nicotine dependence without complication Encounter for screening mammogram for malignant neoplasm of breast Insomnia Insomnia, unspecified Non-seasonal allergic rhinitis, unspecified trigger Type 2 diabetes mellitus with unspecified complications Vitamin D deficiency, unspecified Gastro-esophageal reflux disease without esophagitis PAD (peripheral artery disease) ([facility]) Unspecified peripheral vascular disease Gastroesophageal reflux disease, unspecified whether esophagitis present Venous ulcer of right leg ([facility]) Cellulitis of left lower extremity- Primary COPD exacerbation ([facility]) Obstructive chronic bronchitis with exacerbation Primary hypertension ([facility]) Unspecified essential hypertension Pulmonary hypertension ([facility]) Other chronic pulmonary heart diseases Morbid (severe) obesity due to excess calories ([facility]) Type 2 diabetes mellitus with complication, with long-term current use of insulin ([facility]) Anxiety and depression ([facility]) Fever, unspecified fever cause documented in this encounter [facility] HealthcareEvaluation note* Diagnosis Obstructive sleep apnea- Primary Obstructive sleep apnea (adult) (pediatric) Pulmonary emphysema, unspecified emphysema type (HCC) Primary hypertension Unspecified essential hypertension Type 2 diabetes mellitus with complication, with long-term current use of insulin ([facility]) Anxiety and depression Bilateral lower extremity edema Pulmonary emphysema, unspecified emphysema type (HCC)- Primary Primary hypertension Unspecified essential hypertension Class 3 severe obesity with serious comorbidity and body mass index (BMI) of 50.0 to 59.9 in adult,unspecified obesity type ([facility]) Obstructive sleep apnea Obstructive sleep apnea (adult) [...] 50.0 to 59.9 in adult,unspecified obesity type ([facility]) Encounter for subsequent annual wellness visit (AWV) in Medicare patient- Primary Type 2 diabetes mellitus with unspecified complications ([facility]) Pulmonary emphysema, unspecified emphysema type ([facility]) Moderate persistent asthma without complication (HCC) Primary hypertension Unspecified essential hypertension Type 2 diabetes mellitus with complication, with long-term current use of insulin ([facility]) Class 3 severe obesity with serious comorbidity and body mass index (BMI) of 50.0 to 59.9 in adult,unspecified obesity type ([facility]) Tobacco user Tobacco use disorder Other headache syndrome Malignant neoplasm of cervix uteri, unspecified (HCC) Other specified disorders of adrenal gland ([facility]) Major depressive disorder, single episode, mild Major depressive disorder, single episode, mild Non-pressure chronic ulcer of other part of left lower leg with fat layer exposed ([facility]) Chronic respiratory failure, unspecified whether with hypoxia or hypercapnia ([facility]) Disorder of adrenal gland, unspecified ([facility]) Non-pressure chronic ulcer of other part of right lower leg limited to breakdown of skin ([facility]) Non-recurrent acute suppurative otitis media of left ear without spontaneous rupture of tympanic membrane Primary hypertension- Primary Unspecified essential hypertension Insomnia Insomnia, unspecified Type 2 diabetes mellitus with complication, with long-term current use of insulin ([facility]) Non-seasonal allergic rhinitis, unspecified trigger Type 2 diabetes mellitus with unspecified complications ([facility]) Anxiety and depression Gastro-esophageal reflux disease without esophagitis Edema, unspecified Edema Diabetic polyneuropathy associated with type 2 diabetes mellitus ([facility]) Chronic obstructive pulmonary disease, unspecified (HCC) Pulmonary emphysema, unspecified emphysema type ([facility]) Bilateral lower extremity edema Tobacco user Tobacco use disorder Hyperpigmentation of skin Other dyschromia Primary hypertension- Primary Unspecified essential hypertension Diabetic polyneuropathy associated with type 2 diabetes mellitus ([facility]) Pulmonary emphysema, unspecified emphysema type (HCC) Critical limb ischemia of right lower extremity ([facility]) PAD (peripheral artery disease) Unspecified peripheral vascular disease Gastroesophageal reflux disease, unspecified whether esophagitis present Bilateral lower extremity edema Venous ulcer of right leg ([facility]) Type 2 diabetes mellitus with complication, with long-term current use of insulin ([facility]) Tobacco user Tobacco use disorder Encounter for smoking cessation counseling Kidney stone Calculus of kidney Adrenal mass 1 cm to 4 cm in diameter ([facility]) Radiculopathy, lumbar region Thoracic or lumbosacral neuritis or radiculitis, unspecified Non-seasonal allergic rhinitis, unspecified trigger Type 2 diabetes mellitus with unspecified complications ([facility]) Anxiety and depression- Primary Morbid (severe) obesity due to excess calories ([facility]) Body mass index (BMI) 50.0-59.9, adult ([facility]) Malignant neoplasm of cervix uteri, unspecified (HCC) [...] insulin ([facility]) Tobacco user Tobacco use disorder Mixed hyperlipidemia Mixed hyperlipidemia Gout, unspecified cause, unspecified chronicity, unspecified site Vitamin deficiency Unspecified vitamin deficiency Gastro-esophageal reflux disease without esophagitis Edema, unspecified Edema Hyperlipidemia, unspecified Encounter for smoking cessation counseling Venous ulcer of right leg ([facility]) Antibiotic-induced yeast infection Primary hypertension- Primary Unspecified essential hypertension Diabetic polyneuropathy associated with type 2 diabetes mellitus (HCC) Chronic diastolic heart failure (HCC) Chronic diastolic heart failure Bilateral lower extremity edema Morbid (severe) obesity due to excess calories ([facility]) Type 2 diabetes mellitus with complication, with long-term current use of insulin ([facility]) Anxiety and depression Cigarette nicotine dependence without [...] due to excess calories ([facility]) Type 2 diabetes mellitus with complication, with long-term current use of insulin ([facility]) Anxiety and depression Fever, unspecified fever cause Encounter for subsequent annual wellness visit (AWV) in Medicare patient- Primary Mixed hyperlipidemia Mixed hyperlipidemia Type 2 diabetes mellitus with complication, with long-term current use of insulin ([facility]) Bilateral lower extremity edema Gastro-esophageal reflux disease [...] due to excess calories ([facility]) Type 2 diabetes mellitus with hyperglycemia, with long-term current use of insulin (HCC) documented in this encounter [facility] HealthcareEvaluation note* Diagnosis Obstructive sleep [...] 50.0 to 59.9 in adult,unspecified obesity type ([facility]) Obstructive sleep apnea Obstructive sleep apnea (adult) [...] 50.0 to 59.9 in adult,unspecified obesity type ([facility]) Encounter for subsequent annual wellness visit (AWV) in Medicare patient- Primary Type 2 diabetes mellitus with unspecified complications ([facility]) Pulmonary emphysema, unspecified emphysema type ([facility]) Moderate persistent asthma without complication (HCC) Primary hypertension Unspecified essential hypertension Type 2 diabetes mellitus with complication, with long-term current use of insulin ([facility]) Class 3 severe obesity with serious comorbidity and body mass index (BMI) of 50.0 to 59.9 in adult,unspecified obesity type ([facility]) Tobacco user Tobacco use disorder Other headache syndrome Malignant neoplasm of cervix uteri, unspecified (HCC) Other specified disorders of adrenal gland ([facility]) Major depressive disorder, single episode, mild Major depressive disorder, single episode, mild Non-pressure chronic ulcer of other part of left lower leg with fat layer exposed ([facility]) Chronic respiratory failure, unspecified whether with hypoxia or hypercapnia ([facility]) Disorder of adrenal gland, unspecified ([facility]) Non-pressure chronic ulcer of other part of right lower leg limited to breakdown of skin ([facility]) Non-recurrent acute suppurative otitis media of left ear without spontaneous rupture of tympanic membrane Primary hypertension- Primary Unspecified essential hypertension Insomnia Insomnia, unspecified Type 2 diabetes mellitus with complication, with long-term current use of insulin ([facility]) Non-seasonal allergic rhinitis, unspecified trigger Type 2 diabetes mellitus with unspecified complications ([facility]) Anxiety and depression Gastro-esophageal reflux disease without esophagitis Edema, unspecified Edema Diabetic polyneuropathy associated with type 2 diabetes mellitus ([facility]) Chronic obstructive pulmonary disease, unspecified ([facility]) Pulmonary emphysema, unspecified emphysema type ([facility]) Bilateral lower extremity edema Tobacco user Tobacco use disorder Hyperpigmentation of skin Other dyschromia Primary hypertension- Primary Unspecified essential hypertension Diabetic polyneuropathy associated with type 2 diabetes mellitus ([facility]) Pulmonary emphysema, unspecified emphysema type (HCC) Critical limb ischemia of right lower extremity ([facility]) PAD (peripheral artery disease) Unspecified peripheral vascular disease Gastroesophageal reflux disease, unspecified whether esophagitis present Bilateral lower extremity edema Venous ulcer of right leg ([facility]) Type 2 diabetes mellitus with complication, with long-term current use of insulin ([facility]) Tobacco user Tobacco use disorder Encounter for smoking cessation counseling Kidney stone Calculus of kidney Adrenal mass 1 cm to 4 cm in diameter ([facility]) Radiculopathy, lumbar region Thoracic or lumbosacral neuritis or radiculitis, unspecified Non-seasonal allergic rhinitis, unspecified trigger Type 2 diabetes mellitus with unspecified complications (HCC) Anxiety and depression- Primary Morbid (severe) obesity due to excess calories ([facility]) Body mass index (BMI) 50.0-59.9, adult ([facility]) Malignant neoplasm of cervix uteri, unspecified (HCC) [...] due to excess calories ([facility]) Type 2 diabetes mellitus with complication, with [...] due to excess calories ([facility]) Type 2 diabetes mellitus with complication, with [...] Morbid (severe) obesity due to excess calories ([facility]) Encounter for dietary consultation- Primary Type 2 diabetes mellitus with hyperglycemia, with long-term current use of insulin ([facility]) Vitamin D deficiency Primary hypertension Unspecified essential hypertension Insulin long-term use ([facility]) Encounter for long-term (current) use of insulin Hyperlipemia, mixed Mixed hyperlipidemia Microalbuminuria Proteinuria Class 3 severe obesity due to excess calories with serious comorbidity and body mass index (BMI) of50.0 to 59.9 in adult ([facility]) documented in this encounter [facility] HealthcareEvaluation note* Diagnosis Obstructive sleep apnea- Primary Obstructive sleep apnea (adult) (pediatric) Pulmonary emphysema, unspecified emphysema type (HCC) Primary hypertension Unspecified essential hypertension Type 2 diabetes mellitus with complication, with long-term current use of insulin ([facility]) Anxiety and depression Bilateral lower extremity edema Pulmonary emphysema, unspecified emphysema type (HCC)- Primary Primary hypertension Unspecified essential hypertension Class 3 severe obesity with serious comorbidity and body mass index (BMI) of 50.0 to 59.9 in adult,unspecified obesity type ([facility]) Obstructive sleep apnea Obstructive sleep apnea (adult) (pediatric) Pulmonary hypertension (HCC) Other chronic pulmonary heart diseases Tobacco user Tobacco use disorder Cardiomegaly Primary hypertension- Primary Unspecified essential hypertension Gastroesophageal reflux disease, unspecified whether esophagitis present Type 2 diabetes mellitus with complication, with long-term current use of insulin ([facility]) Mixed hyperlipidemia Mixed hyperlipidemia Tobacco user Tobacco use disorder Encounter for screening mammogram for malignant neoplasm of breast Chronic obstructive pulmonary disease, unspecified (HCC) Other specified chronic obstructive pulmonary disease (HCC) Anxiety and depression Edema, unspecified Edema Hyperlipidemia, unspecified Diabetic polyneuropathy associated with type 2 diabetes mellitus ([facility]) Gout, unspecified cause, unspecified chronicity, unspecified site [...] 50.0 to 59.9 in adult,unspecified obesity type ([facility]) Encounter for subsequent annual wellness visit (AWV) in Medicare patient- Primary Type 2 diabetes mellitus with unspecified complications (HCC) Pulmonary emphysema, unspecified emphysema type ([facility]) Moderate persistent asthma without complication (HCC) Primary hypertension Unspecified essential hypertension Type 2 diabetes mellitus with complication, with long-term current use of insulin ([facility]) Class 3 severe obesity with serious comorbidity and body mass index (BMI) of 50.0 to 59.9 in adult,unspecified obesity type ([facility]) Tobacco user Tobacco use disorder Other headache syndrome Malignant neoplasm of cervix uteri, unspecified (HCC) Other specified disorders of adrenal gland ([facility]) Major depressive disorder, single episode, mild Major depressive disorder, single episode, mild Non-pressure chronic ulcer of other part of left lower leg with fat layer exposed ([facility]) Chronic respiratory failure, unspecified whether with hypoxia or hypercapnia ([facility]) Disorder of adrenal gland, unspecified ([facility]) Non-pressure chronic ulcer of other part of right lower leg limited to breakdown of skin ([facility]) Non-recurrent acute suppurative otitis media of left ear without spontaneous rupture of tympanic membrane Primary hypertension- Primary Unspecified essential hypertension Insomnia Insomnia, unspecified Type 2 diabetes mellitus with complication, with long-term current use of insulin ([facility]) Non-seasonal allergic rhinitis, unspecified trigger Type 2 diabetes mellitus with unspecified complications ([facility]) Anxiety and depression Gastro-esophageal reflux disease without esophagitis Edema, unspecified Edema Diabetic polyneuropathy associated with type 2 diabetes mellitus (HCC) Chronic obstructive pulmonary disease, unspecified (HCC) Pulmonary emphysema, unspecified emphysema type ([facility]) Bilateral lower extremity edema Tobacco user Tobacco use disorder Hyperpigmentation of skin Other dyschromia Primary hypertension- Primary Unspecified essential hypertension Diabetic polyneuropathy associated with type 2 diabetes mellitus (HCC) Pulmonary emphysema, unspecified emphysema type (HCC) Critical limb ischemia of right lower extremity ([facility]) PAD (peripheral artery disease) Unspecified peripheral vascular disease Gastroesophageal reflux disease, unspecified whether esophagitis present Bilateral lower extremity edema Venous ulcer of right leg ([facility]) Type 2 diabetes mellitus with complication, with long-term current use of insulin ([facility]) Tobacco user Tobacco use disorder Encounter for smoking cessation counseling Kidney stone Calculus of kidney Adrenal mass 1 cm to 4 cm in diameter ([facility]) Radiculopathy, lumbar region Thoracic or lumbosacral neuritis or radiculitis, unspecified Non-seasonal allergic rhinitis, unspecified trigger Type 2 diabetes mellitus with unspecified complications ([facility]) Anxiety and depression- Primary Morbid (severe) obesity due to excess calories ([facility]) Body mass index (BMI) 50.0-59.9, adult ([facility]) Malignant neoplasm of cervix uteri, unspecified ([facility]) Diabetic polyneuropathy associated with type 2 diabetes mellitus ([facility]) Chronic diastolic heart failure ([facility]) Chronic diastolic heart failure Primary hypertension Unspecified essential hypertension 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 ([facility]) Gastroesophageal reflux disease, unspecified whether esophagitis present Bilateral lower extremity edema Type 2 diabetes mellitus with complication, with long-term current use of insulin ([facility]) Tobacco user Tobacco use disorder Mixed hyperlipidemia Mixed hyperlipidemia Gout, unspecified cause, unspecified chronicity, unspecified site Vitamin deficiency Unspecified vitamin deficiency Gastro-esophageal reflux disease without esophagitis Edema, unspecified Edema Hyperlipidemia, unspecified Encounter for smoking cessation counseling Venous ulcer of right leg ([facility]) Antibiotic-induced yeast infection Primary hypertension- Primary Unspecified essential hypertension Diabetic polyneuropathy associated with type 2 diabetes mellitus ([facility]) Chronic diastolic heart failure (HCC) Chronic diastolic heart failure Bilateral lower extremity edema Morbid (severe) obesity due to excess calories ([facility]) Type 2 diabetes mellitus with complication, with long-term current use of insulin ([facility]) Anxiety and depression Cigarette nicotine dependence without complication Encounter for screening mammogram for malignant neoplasm of breast Insomnia Insomnia, unspecified Non-seasonal allergic rhinitis, unspecified trigger Type 2 diabetes mellitus with unspecified complications ([facility]) Vitamin D deficiency, unspecified Gastro-esophageal reflux disease without esophagitis PAD (peripheral artery disease) Unspecified peripheral vascular disease Gastroesophageal reflux disease, unspecified whether esophagitis present Venous ulcer of right leg ([facility]) Cellulitis of left lower extremity- Primary COPD exacerbation ([facility]) Obstructive chronic bronchitis with exacerbation Primary hypertension Unspecified essential hypertension Pulmonary hypertension (HCC) Other chronic pulmonary heart diseases Morbid (severe) obesity due to excess calories ([facility]) Type 2 diabetes mellitus with complication, with [...] due to excess calories ([facility]) Tobacco user Tobacco use disorder Encounter for smoking cessation counseling documented in this encounter [facility] HealthcareEvaluation noteNo assessment information availableFirCleveland Clinic Lutheran Hospital Work Phone: History general Narrative - Reported* Type Description Date Medical History diabetes mallitus Medical HistoryCOPDMedical HistoryADRENAL MASS 1 CM TO 4 CM IN DIAMETERMedical HistoryARTHRITISMedical HistoryASTHMAMedical HistoryHEADACHEMedical History HYPERTENSIONMedical HistoryKIDNEY STONESMedical HistoryLEFT FLANK PAINMedical HistoryMIXED INCONTINENCEMedical HistoryPROTEINURIAMedical HistorySMOKERSurgical [id number] Historytoe surgerySurgical HistoryLAPAROSCOPIC CHOLECYSTECTOMYHospitalization [id number] History[place] [employer] Other Hospital course Narrative No data available for this section [facility] progress note No data available for this section [facility] reason for referral (narrative) , Referral to Dr. Cortés Referred by: REGLA PHIPPS, Elbert Joya [facility] reason for referral (narrative)No reason for referral information availableFirProMedica Memorial [facility] Center Work Phone: Advance Directives No Advanced Directives Records FoundDocuments on File TypeDate RecordedPatient RepresentativeExplanationAdvance Directives and Living WillPower of Corn Grinder Advance Directive Response Recorded Date/ Time Advance [...] section and content) DATE CREATED AUTHOR 10/30/2019 [facility] DATE CREATED AUTHOR AUTHOR'S ORGANIZ ATION 09/15/2020 [facility] DATE CREATED AUTHOR AUTHOR'S ORGANIZ ATION 12/19/2022 [facility] DATE CREATED AUTHOR AUTHOR'S ORGANIZ ATION 01/30/2025 [facility] DATE CREATED AUTHOR AUTHOR'S ORGANIZ ATION 04/12/2025 [facility] DATE CREATED AUTHOR AUTHOR'S ORGANIZ ATION 04/29/2025 [facility] DATE CREATED AUTHOR AUTHOR'S ORGANIZ ATION 05/08/2025 [facility] Care Team (unrecognized sect ion and content) Team MemberRelationshipSpecialtyStart DateEnd Date Ty Amin MD PCP - GeneralFamily Medicine01/05/23Team MemberRelationshipSpecialtyStart DateEnd Date Ty Amin MD PCP - [facility]Community [facility]ally [facility]01/05/23Team MemberRelationshipSpecialtyStart DateEnd Date Ty Amin MD [address] [place] [phone] PCP - GeneralFamily Medicine09/20/23 Mckayla Blas NP [address] [place] [address] PCP - [facility]/ Mckayla Blas NP [address] [place] [address] Nurse PractitionerCommunity Memorial Hospitally Medicine09/20/23Team MemberRelationshipSpecialtyStart DateEnd Date Ty Amin MD [address] [place] [address] PCP - Generalmi Medicine09/20/23 Mckayla Blas NP [address] [place] [phone] PCP - [facility]/ Mckayla Blas NP [address] [place] [address] [facility]09/20/23Team MemberRelationshipSpecialtyStart DateEnd Date Ty Amin MD [address] [place] [address] PCP - [facility]09/20/23 Mckayla Blas NP [address] [place] [address] [place] [address] Mckayla Blas NP [address] [place] [address] [facility]09/20/23Team MemberRelationshipSpecialtyStart DateEnd Date Ty Amin MD [address] [place] [address] PCP - [facility]09/20/23 Mckayla Blas NP [address] [place] [address] [place] [address] Mckayla Blas NP [address] [place] [address] [facility]09/20/23Team MemberRelationshipSpecialtyStart DateEnd Date Ty Amin MD [address] [place] [address] PCP - [facility]09/20/23 Mckayla Blas NP [address] [place] [address] [place] [address]/ Mckayla Blas NP [address] [place] [address] [facility]09/20/23Team MemberRelationshipSpecialtyStart DateEnd Date Ty Amin MD [address] [place] [address] PCP - [facility]09/20/23 Mckayla Blas NP [address] [place] [address] [place] [address]/ Mckayla Blas NP [address] [place] [address] [facility]09/20/23Team MemberRelationshipSpecialtyStart DateEnd Date Ty Amin MD [address] [place] [address] PCP - [facility]09/20/23 Mckayla Blas NP [address] [place] [address] [facility]/ Mckayla Blas NP [address] [place] [address] [facility]09/20/23Team MemberRelationshipSpecialtyStart DateEnd Date Ty Amin MD [address] [place] [address] PCP - [facility]09/20/23 Mckayla Blas NP [address] [place] [address] [place] [address]/ Mckayla Blas NP [address] [place] [address] [facility]09/20/23Team MemberRelationshipSpecialtyStart DateEnd Date Ty Amin MD [address] [place] [address] PCP - [facility]09/20/23 Mckayla Blas NP [address] [place] [address] PCP [facility]/ Mckayla Blas NP [address] [place] [address] Nurse PractitionerCommunity [facility] Hospitally [facility]09/20/23Team MemberRelationshipSpecialtyStart DateEnd Date Ty Amin MD [address] [place] [address] [facility] Mckayla Blas NP [address] [place] [address] PCP - [facility] Mckayla Blas NP [address] [place] [address] Nurse PractitionerH[facility]09/20/23Te MemberRelationshipSpecialtyStart DateEnd Date Ty Amin MD [address] [place] [address] [facility] - [facility]/23 Mckayla Blas NP [address] [place] [address] PCP - [facility]/ Mckayla Blas NP [address] [place] [address] Nurse [facility] Medicine09/20/23Team MemberRelationshipSpecialtyStart DateEnd Date Ty Amin MD [address] [place] [address] PCP - [facility]09/20/23 Mckayla Blas NP [address] [place] [address] [place] [address] Mckayla Blas NP [address] [place] [address] Nurse Pract[facility]09/20/23Team MemberRelationshipSpecialtyStart DateEnd Date Ty Amin MD [address] [place] [address] PCP - [facility]09/20/23 Mckayla Blas NP [address] [place] [address] [place] [address] Mckayla Blas NP [address] [place] [address] Nurse Pract[facility]09/20/23Team MemberRelationshipSpecialtyStart DateEnd Date Ty Amin MD [address] [place] [address] PCP - [facility]09/20/23 Mckayla Blas NP [address] [place] [address] [place] [address] Mckayla Blas NP [address] [place] [address] [facility]09/20/23Team MemberRelationshipSpecialtyStart DateEnd Date Ty Amin MD [address] [place] [address] PCP - [facility]09/20/23 Mckayla Blas NP [address] [place] [address] PCP [facility]/ Mckayla Blas NP [address] [place] [address] Nurse PractitionerH[facility]09/20/23Team MemberRelationshipSpecialtyStart DateEnd Date Ty Amin MD [address] [place] [address] PCP - [facility]09/20/23 Mckayla Blas NP [address] [place] [address] PCP [facility]/ Mckayla Blas NP [address] [place] [address] Nurse PractitionerH[facility]09/20/23Team MemberRelationshipSpecialtyStart DateEnd Date Ty Amin MD [address] [place] [address] PCP - [facility]09/20/23 Mckayla Blas NP [address] [place] [address] [place] [address]/ Mckayla Blas NP [address] [place] [address] Nurse Pract[facility]erH[facility]09/20/23Team MemberRelationshipSpecialtyStart DateEnd Date Ty Amin MD [address] [place] [address] PCP - [facility]09/20/23 Mckayla Blas NP [address] [place] [address] [place] [address]/ Mckayla Blas NP [address] [place] [address] Nurse PractitionerH[facility]09/20/23Team MemberRelationshipSpecialtyStart DateEnd Date Ty Amin MD [address] [place] [address] PCP - [facility]09/20/23 Mckayla Blas NP [address] [place] [address] [facility] - [facility]/ Mckayla Blas NP [address] [place] [address] [facility] Medicine09/20/23Team MemberRelationshipSpecialtyStart DateEnd Date Ty Amin MD [address] [place] [address] [facility] - [facility]09/20/23 Mckayla Blas NP [address] [place] [address] [place] [address]/ Mckayla Blas NP [address] [place] [address] Nurse Pract[facility]erH[facility]09/20/23Team MemberRelationshipSpecialtyStart DateEnd Date Ty Amin MD [address] [place] [address] PCP - [facility] Medicine09/20/23 Mckayla Blas NP [address] [place] [address] Nurse PractitionerH[facility]09/20/23Team MemberRelationshipSpecialtyStart DateEnd Date Ty Amin MD [address] [place] [address] PCP - GeneralFamily Medicine09/20/23 Mckayla Blas NP [address] [place] [address] [facility]09/20/23Team MemberRelationshipSpecialtyStart DateEnd Date Ty Amin MD [address] [place] [address] [facility] - [facility]09/20/23 Mckayla Blas NP [address] [place] [address] [facility]09/20/23Team MemberRelationshipSpecialtyStart DateEnd Date Ty Amin MD [address] [place] [address] [facility] - [facility]09/20/23 Mckayla Blas NP [address] [place] [address] [facility]09/20/23Team MemberRelationshipSpecialtyStart DateEnd Date Ty Amin MD [address] [place] [address] [facility] - [facility]09/20/23 Mckayla Blas NP [address] [place] [address] Nurse PractitionerH[facility]09/20/23 Team Status: Active Member Role Status Dates Mckayla Blas , PARI MUTUEL CLERK-C Primary Care Provider Active Team Status: Active Member Role Status Dates Mckayla Krystal Blas , PARI MUTUEL CLERK-C Primary Care Provider Active Start: March 25, 2025 Price Arora , DOAttending ProviderActiveStart: March 25, 2025 Team Status: Active Member Role Status Dates Mckayla Krystal Blas , PARI MUTUEL CLERK-C Primary Care Provider Active Start: March 26, 2025 SASHA WellsMAttending ProviderActiveStart: March 26, 2025 Team Status: Inactive Member Role Status Dates Mckayla Blas , PARI MUTUEL CLERK-C Primary Care Provider Active Start: April 06, 2025 End: April 06, 2025Mckayla Blas , PARI MUTUEL CLERK-CAttending ProviderActiveStart: April 06, 2025 End: April 06, 2025 Team Status: Active Member Role/Relationship Status Dates Mckayla Krystal Blas , PARI MUTUEL CLERK-C Primary Care Provider Active Team Status: Active Member Role/Relationship Status Dates Mckayla Krystal Blas , PARI MUTUEL CLERK-C Primary Care Provider Active Start: March 25, 2025 Price Arora , DOAttending ProviderActiveStart: March 25, 2025 Team Status: Active Member Role/Relationship Status Dates Mckayla Krystal Blas , PARI MUTUEL CLERK-C Primary Care Provider Active Start: March 26, 2025 SASHA WellsMAttending ProviderActiveStart: March 26, 2025 Team Status: Inactive Member Role/Relationship Status Dates Mckayla Krystal Blas , PARI MUTUEL CLERK-C Primary Care Provider Active Start: April 06, 2025 End: April 06, 2025Mckayla Blas , PARI MUTUEL CLERK-CAttending ProviderActiveStart: April 06, 2025 End: April 06, 2025 Team Status: Inactive Member Role/Relationship Status Dates Mckayla Krystal Blas , PARI MUTUEL CLERK-C Primary Care Provider Active Start: April 29, 2025 End: April 29, 2025Mckayla Blas , PARI MUTUEL CLERK-CAttending ProviderActiveStart: April 29, 2025 End: April 29, 2025Team MemberRelationshipSpecialtyStart DateEnd Date Ty Amin MD PCP - [facility]09/20/23 Mckayla Blas NP [address] [place] [address] PCP - [facility] Mckayla Blas NP Nurse PractitionerH[facility]09/20/23Team MemberRelationshipSpecialtyStart DateEnd Date Ty Amin MD PCP - [facility] Ty Amin MD PCP - [facility]09/20/23 Mckayla Blas NP [address] [place] [address] [place] [address] Mckayla Blas NP Nurse PractitionerH[facility]09/20/23Team MemberRelationshipSpecialtyStart DateEnd Date Ty Amin MD PCP - [facility]09/20/23 Mckayla Blas NP [address] [place] [address] Mckayla Blas NP Nurse PractitionerFamily [facility]09/20/23 REASON FOR VISIT (unrecogniz ed section and [...] BE BASED ON THE PRIMARY CLINICAL RECORDS. [employer] provides no warranty or guarantee of the accuracy or completeness of information in this document.
--- NOTE | 2025-05-13 11:02 | PM.CN ---
Consult Note: HPI Data of Consult Patient: known to practice within the last 3 years Consult date: 05/13/25 Requesting Physician: Angela Cochran NP Primary Care Provider: Mckayla Blas NP Consult Narrative Reason for consult: f/u Narrative: Mitzi Macias a pleasant 54 year old female presents for evaluation and management of low back and right hip pain. Today pain 7/10. Describes it as an aching pain in low back, sharp in right hip, and right leg pain increased with standing, walking, transitioning, stairs. Tolerating current medication regimen well without side effects. Patient has a longstanding hx of low back and leg pain unresponsive to PT/HEP greater than 6 weeks, tylenol, ibuprofen/motrin/aleve, heat/ice, and tylenol. continues to have moderate to severe back, right hip, and RLE pain. Pt is working on weight loss and smoking cessation. following with wound care for wound of RLE that is not progressing, pending skin graft cc:: CC: Angela Cochran NP Review of Systems ROS Status of ROS 10 or more systems reviewed and unremarkable except as noted in history and below Musculoskeletal Reports: back pain, extremity pain and joint pain PFSH [facility] Medical History COPD exacerbation ?J44.1 - Chronic obstructive pulmonary disease with (acute) exacerbation (ICD-10) Influenza A ?J10.1 - Influenza due to other identified influenza virus with other respiratory manifestations (ICD-10) Hypoxia ?R09.02 - Hypoxemia (ICD-10) Hypertension ?I10 - Essential (primary) hypertension (ICD-10) Obesity ?E66.9 - Obesity, unspecified (ICD-10) Amputation toe ?S98.139A - Complete traumatic amputation of one unspecified lesser toe, initial encounter (ICD-10) Neuropathy ?G62.9 - Polyneuropathy, unspecified (ICD-10) Acid reflux ?K21.9 - Gastro-esophageal reflux disease without esophagitis (ICD-10) Diabetes ?E11.9 - Type 2 diabetes mellitus without complications (ICD-10) COPD (chronic obstructive pulmonary disease) ?J44.9 - Chronic obstructive pulmonary disease, unspecified (ICD-10) Asthma ?J45.909 - Unspecified asthma, uncomplicated (ICD-10) High cholesterol ?E78.00 - Pure hypercholesterolemia, unspecified (ICD-10) Surgical History History of hammertoe correction ?Z98.890 - Other specified postprocedural states (ICD-10) ?Z87.39 - Personal history of other diseases of the musculoskeletal system and connective tissue (ICD-10) Hx of cholecystectomy ?Z90.49 - Acquired absence of other specified parts of digestive tract (ICD-10) History of hysterectomy ?Z90.710 - Acquired absence of both cervix and uterus (ICD-10) Social History (Updated 12/04/24 @ 22:27 by Comfort Grimaldo RN) Within the past year, how often did you have a drink containing alcohol: never Within the past year, how often did you have six or more drinks on one occasion: never Score interpretation: A score less than 3 is consistent with normal alcohol consumption. Smoking status: Current some day smoker Second hand tobacco smoke exposure: Yes Non-prescribed substance use: denies use Known occupational exposures/hazards: No Highest level of school completed/degree received: Associate degree: occupational, technical, vocational program Are you now , , , , never or living with a partner: Little interest or pleasure in doing things: not at all Feeling down, depressed, or hopeless: not at all Feel stressed/tense/nervous/anxious/difficulty sleeping: not at all Meds Home Medications and Allergies Home Medications ?Medication ?Instructions ?Recorded ?Confirmed ?Type acetaminophen 500 mg capsule 1,000 mg PO Q6H PRN fever or pain 03/20/23 12/04/24 History amitriptyline 25 mg tablet 25 mg PO DAILY 03/20/23 12/04/24 History aspirin 81 mg tablet,delayed 81 mg PO DAILY 03/20/23 12/04/24 History release (Adult Aspirin Regimen) budesonide-formoterol HFA 160 2 inh inhalation BID 03/20/23 12/04/24 History mcg-4.5 mcg/actuation aerosol inhaler (Symbicort) furosemide 40 mg tablet 40 mg PO DAILY 03/20/23 12/04/24 History insulin aspart U-100 100 unit/mL 1 sliding scale dose subcut 03/20/23 12/04/24 History (3 mL) subcutaneous pen (Novolog USEASDIRECTD FlexPen U-100 Insulin aspart) insulin glargine 100 unit/mL 58 unit subcut BID 03/20/23 12/04/24 History subcutaneous solution (Lantus U-100 Insulin) lisinopril 20 mg tablet 20 mg PO DAILY 03/20/23 12/04/24 History omeprazole 20 mg capsule,delayed 20 mg PO DAILY 03/20/23 12/04/24 History release duloxetine 60 mg capsule,delayed 60 mg PO BID #60 caps 04/05/23 12/04/24 Rx release dapagliflozin propanediol 10 mg 10 mg PO .QD 09/10/23 12/04/24 History tablet ergocalciferol (vitamin D2) 1,250 50,000 unit PO QWEEK 09/10/23 12/04/24 History mcg (50,000 unit) capsule potassium chloride 10 mEq 10 meq PO .QD 09/10/23 12/04/24 History capsule,extended release simvastatin 10 mg tablet 10 mg PO QAM 09/10/23 12/04/24 History hydralazine 25 mg tablet 25 mg PO BID #60 tabs 09/13/23 12/04/24 Rx oseltamivir 75 mg capsule 75 mg PO BID #6 caps 09/13/23 12/04/24 Rx ammonium lactate 12 % lotion 1 applic topical DAILY 12/04/24 12/05/24 History prednisone 10 mg tablet 40 mg (4 x 10 mg) PO DAILY #32 tabs 12/05/24 Rx diclofenac sodium 75 mg 75 mg PO BID PRN pain #60 tabs 01/07/25 Rx tablet,delayed release hydrocodone 5 mg-acetaminophen 325 See Rx Instructions .Route 02/11/25 Rx mg tablet .COMPLEX PRN pain #80 tabs pregabalin 300 mg capsule (Lyrica) 300 mg PO BID #60 caps 02/25/25 Rx pregabalin 150 mg capsule (Lyrica) 150 mg PO DAILY #30 caps 03/13/25 Rx amoxicillin 875 mg-potassium 1 tab PO BID #14 tabs 03/25/25 Rx clavulanate 125 mg tablet baclofen 10 mg tablet 10 mg PO TID PRN muscle spasm #90 04/14/25 Rx tabs hydrocodone 5 mg-acetaminophen 325 1 tab PO TID PRN pain #80 tabs 05/13/25 Rx mg tablet pregabalin 150 mg capsule (Lyrica) 150 mg PO DAILY #30 caps 05/13/25 Rx Allergies Allergy/AdvReac Type Severity Reaction Status Date / Time No Known Drug Allergies Allergy Verified 06/10/24 08:21 Exam Constitutional Documenting provider has reviewed patient's vital signs: yes Common normals: no apparent distress, oriented x3 and alert General appearance: cooperative Nutritional appearance: obese HENMT Common normals: normocephalic, hearing grossly normal bilaterally and moist oral mucous membranes Head and scalp: normocephalic Eye Common normals: PERRL Pupil: PERRL Neck & C-Spine Common normals: full ROM General: normal visual inspection Chest Common normals: inspection of chest normal Respiratory Common normals: normal respiratory effort, no retractions and no use of accessory muscles Back & Pelvis Lumbar spine/lower back: ROM limited, pain with ROM and straight leg raise positive right Other: severe pain with internal/external rotation of right hip strength 4/5 in RLE and 5/5 in LLE Extremity Right lower extremity: hip joint Neuro Common normals: oriented x3 Sensorium/orientation: alert Gait (neuro): assistive device used (wheelchair) Motor exam: no movement abnormalities noted Psych Common normals: mental status grossly normal, thought process normal, cooperative, affect normal, speech normal and activity/motor behavior normal Speech: normal speech Thought process: normal thought process Results Additional Findings Additional findings: If on a controlled substance or opioids, I have checked an [place]AR[place] report on this patient and there are no aberrancies noted in the prescribing history.??If on a controlled substance or opioid a drug screen was completed and reviewed within the last year, and if there has not been a drug screen completed we ordered one today to monitor higher risk, state monitored pain medication use. As part of providing excellent, safe, comprehensive care, the following was completed at our patient's visit: 1. A medication reconciliation and review to ensure accurate knowledge of current/active medications, including asking our patients to inform us about any [id number] medications or herbal remedies/nutritional supplements/alternative remedies. 2. A review to specifically ensure our patients have had annual screening for screening for depression, screening for tobacco use, and screening for unhealthy alcohol use. For concerning screenings had a discussion with the patient, provided patient education, and recommended follow-up with primary care provider when appropriate. If patient noted with a risk of falling, they received education on strength, gait, and balance training to prevent future risk of falling. Portions of this note may have been carried over from the previous visit and updated as appropriate. Please note this office utilizes paper charting in addition to the electronic medical record. A list of current medications, vitals, and PMH is available there as the clinical staff outside of myself do not have access to [employer] charting during the clinic day operations. As part of providing quality comprehensive care the current medications, vitals, and PMH were reviewed in the paper chart. Assessment and Plan Assessment and Plan (1) Chronic right hip pain: (2) Osteoarthritis of hip: Qualifiers: Laterality: unspecified laterality Osteoarthritis type: unspecified Qualified Code(s): M16.9 - Osteoarthritis of hip, unspecified (3) Lumbar stenosis with neurogenic claudication: (4) Lumbar degenerative disc disease: (5) Chronic pain syndrome: (6) Chronic prescription opiate use: Assessment and Plan: I feel these medications are improving the patient's quality of life and allow them to tolerate activities of daily living as well as participate in recreational activity.? The patient does not report intolerable side effects. The patient is NOT opioid naive and non-pharmacologic and non-opioid treatment has failed to significantly relieve the patient's pain and improve functionality. The patient has a diagnosis that is related to a somatic or visceral pain etiology. ? ?? I reviewed with the patient the potential risks and side effects with the use of? opioid medications including but not limited to respiratory depression,? sedation, and even . Within the last 12 months I have verified the patient has access to naloxone should? these effects occur. The patient was advised to let? their family know they had Naloxone in case they would need to administer? the medication. I advised the patient to avoid the use of any other? sedation substances including alcohol, THC, and benzodiazepines while? taking opioid medications due to the risk of compounding side effects and? detrimental outcomes. within the last 12 months I have reviewed the EDUCATION CONSULTANT, pain treatment agreement and urine drug screen.? ?? A drug screen was completed within the last year, and no aberrancies were noted regarding their use of controlled substances. The patient understands they are subject to the terms and conditions of the pain contract that they have signed. ? ?? I have checked an [place]AR[place] report on this patient today and there are no aberrancies noted in the prescribing history.? Plan continue f/u with wound care and orthopedics, pending skin graft continue pregabalin to 300mg AM, 150mg mid day, 300mg HS. risks vs benefits reviewed. does find improvement in radicular pain with increased dose without side effects continue baclofen 5-10mg TID PRN pain/spasms continue hydrocodone-acetaminophen 5-325mg TID PRN moderate to severe pain 80 tabs month continue diclofenac 75mg BID PRN pain current medication regimen reviewed with pt, risks vs benefits reviewed. defer NS consultation due to risks, current infection and obesity can offer right hip injection under fluoroscopy for right hip pain/oa once cleared post skin graft consider right L4-5 l5-S1 TFESI in the future f/u 3 months for medication management, sooner if cleared for interventional therapy
== END 2025-05-13 10:25 | disposition home or self-care (01) ==
LOC: PM 10:27
PROVIDERS: PCP Nurse Practitioner; Visit Provider Nurse Practitioner
DX: M25.551 Pain in right hip (principal); M16.9 Osteoarthritis of hip, unspecified; M48.062 Spinal stenosis, lumbar region with neurogenic claudication; M51.369 Other intervertebral disc degeneration, lumbar region without mention of lumbar back pain or lower extremity pain; G89.4 Chronic pain syndrome; Z79.891 Long term (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 opiate analgesic
CPT/HCPCS: G0463

== ENCOUNTER 2025-05-13 11:56 | Outpatient (OUT) | payer MEDICARE, SELFPAY ==
--- OUTSIDE RECORDS SUMMARY | 2025-05-13 11:59 | XMS_ITS | Encounter Summary ---
Author Organization [facility] Address [address] [place] [address] Care Team Providers Care Stripping Cutter And Winder Name Role Phone Ty Amin MD Primary Care Provider [phone] Mckayla Blas NP Unavailable [phone] Mckayla Blas NP Unavailable [phone] Encounter Details DateTypeDepartmentCare Team (Latest Contact Info)Yudofcwvami72/17/2024Clinisync Result Encounter [facility] External Department Unsolicited Provider, [...] relatives?Once a week08/26/2024How often do you attend bahai or synagogue services?More than 4 times per year08/26/2024Do you belong to any clubs or organizations such as bahai groups, unions, fraternal or athletic groups, or school groups?No08/26/2024How often do you attend meetings of the clubs or organizations you belong to?Never08/26/2024re you , , , , never , or living with a partner?Sqkgncs4408/26/2024UDIT-C AnswerDate RecordedQ1: How often do you have [...] heating?Not hard at all08/26/2024PHQ-2AnswerDate RecordedPatient Health Questionnaire-2 Ugpal634Finmountain point medical center [place] of Occupational Health - Occupational Stress QuestionnaireAnswerDate RecordedDo you feel stress - tense, restless, nervous, or anxious, or unable to sleep at night because yourmind is troubled all the time - these days?Only a ynkggc1808/26/2024 Exercise Vital SignAnswerDate RecordedOn average, how many [...] were you homeless or living in a longterm (including now)?No08/26/2024CommentsUnknownSex and Gender InformationValueDate RecordedSex Assigned at BirthNot on fileLegal Sex Mhejem9809/20/2022 6:50 PM EDTGender IdentityNot on fileSexual OrientationNot on filedocumented as of this encounter Functional Status * AUDIT-C ScoreAnswerDate of IuedqqcxwsIssrtu834/18/2025 6:13 PM Riley, Generic * Q1: How [...] or more drinks on one occasion?AnswerDate of BlugvirjhgVfegilWcnaz19/18/2025 6:13 PM Riley, Generic * Over the past 2 weeks, how often have you been bothered by any of the following problems?QuestionAnswerDate of AssessmentAuthorLittle interest or pleasure in doing thingsNot at all01/26/2025 6:14 PM Marilyn Gibson MA Feeling down, depressed, or hopelessNot at all01/26/2025 6:14 PM Marilyn Gibson MAPatient Health Questionnaire-2 Njcps662 6:14 PM EDT Marilyn Forman MA * [...] Plan of Treatment DateTypeDepartmentCare Team (Latest Contact Info)Jjvdaswyifw60/20/2025 10:30 AM ESTOffice Visit [facility] [address] [place] [address] Rain Souza MD [address] [place] [address] documented as of this encounter Procedures Procedure NamePriorityDate/TimeAssociated DiagnosisCommentsSEGMENTAL BLOOD OYDBHRQO03/17/2024 11:20 AM EDT documented in this encounter Results * SEGMENTAL BLOOD PRESSURE (04/24/2024 11:20 AM EDT)Anatomical RegionLaterality ModalityRadiographic ImagingSpecimen (Source)Anatomical Location / Laterality Collection Method / VolumeCollection TimeReceived Time04/24/2024 11:20 AM EDT Narrative 04/24/2024 11:23 AM EDT [facility] ?[address] ? [place] [address] ?Vein Report ? Signed ? Patient: MACIAS,MITZI L ?MR#: [id number] ?? : 1970 ?Acct:[id number] ?? Age/Sex: 53 / F ?ADM Date: 04/24/24 ?? Loc: VC ? Attending Dr: Rafael Gongora ? Ordering Physician: Rafael Gongora ?? Date of Service: 04/24/24 ?? Procedure(s): VC SEGMENTAL PRESSURES ?? Accession Number(s): [id number] ? cc: Mckayla Blas NP; Rafael Gongora ? [facility] ? [address] ? [place] [address] ? Patient Name: ?? MITZI MACIAS ? MRN: [id number] ? date: 1970 ?Sex: F ?? Assigned Patient Location: VC ?? Current Patient Location: VC ?? Accession/Order Number: [id number] ?? Exam Date: 04/24/2024 ??10:25 ?Report Date: [...] 124, 106 ?? DPA: 108, 105 ?? LINE BUILDER: 100, 91 ?? 1st Toe: 124, 142 [...] ?04/24/243 ? DD/ 1120 ? TD/TT: ? Monorail Helper: Procedure Note Radiology, Radiologist, MD - 04/24/[address] [address] Vein Report Signed Patient: MITZI MACIAS LMR#: [id number] : 1970Acct:[id number] Age/Sex: 53 / FADM Date: 04/24/24 Loc: Attending Dr: Rafael Gongora Ordering Physician: Rafael Gongora Date of Service: 04/24/24 Procedure(s): VC SEGMENTAL PRESSURES Accession Number(s): [id number] cc: Mckayla Blas VICE PRESIDENT OF COMMUNICATIONS; Rafael Gongora The [address] [address] Patient Name: MITZI MACIAS MRN: [id number] date: 1970 Sex: F Assigned Patient Location: Current Patient Location: VC Accession/Order Number: [id number] Exam Date: 04/24/2024 10:25 Report Date: 04/24/2024 11:20 At the request of: RAFAEL GONGORA Procedure: VC SEGMENTAL PRESSURES EXAM: VC SEGMENTAL PRESSURES HISTORY: R09.89 COMPARISON: None. FINDINGS: Segmental pressures presented as follows (right, left) in mmHg. Brachial: 169, 166 Upper thigh: Not obtained Lower thigh: 129, 119 Calf: 124, 106 DPA: 108, 105 LINE BUILDER: 100, 91 1st Toe: 124, 142 ISABELLE: [...] M.D. Signed By:04/24/24 1123 DD/ 1120 TD/TT: Monorail Helper: Authorizing ProviderResult TypeResult StatusGeneric External Data ProviderIMG XR PROCEDURESFinal Result documented in this encounter Visit Diagnoses Not on filedocumented in this encounter Additional Health Concerns AssessmentNoted TimePHQ-9 Depression Total Score: 307/05/2024 10:08 AM EDT documented as of this encounter Care Teams Team MemberRelationshipSpecialtyStart DateEnd Date Ty Amin MD PCP - GeneralFamily Medicine09/20/23 Mckayla Blas NP [address] [place] [address] PCP - [facility]/ Mckayla Blas NP Nurse PractitionerFamily Medicine09/20/23documented as of this encounter
--- OUTSIDE RECORDS SUMMARY | 2025-05-13 11:59 | XMS_ITS | Encounter Summary ---
Author Organization [facility] Address [address] [place] [address] Care Team Providers Care Cartographic Designer Name Role Phone Ty Amin MD Primary Care Provider [phone] Mckayla Blas TECHNICAL TRAINING MANAGER Unavailable [phone] Mckayla Blas NP Unavailable [phone] Encounter Details DateTypeDepartmentCare Team (Latest Contact Info)Hbumjmjozkn71/07/2024Clinisync Result Encounter [facility] External Department Unsolicited Mckayla Blas NP [address] [place] [address] Social History Tobacco UseTypesPacks/DayYears UsedDateSmoking Tobacco: Every [...] week08/26/2024How often do you attend denominational or faith services?More than 4 times per year08/26/2024Do you belong to any clubs or organizations such as denominational groups, unions, fraternal or athletic groups, or school groups?No08/26/2024How often do you attend meetings of the clubs or organizations you belong to?Never08/26/2024re you , , , , never , or living with a partner?Yuquoat3208/26/2024UDIT-C AnswerDate RecordedQ1: How often do you have [...] heating?Not hard at all08/26/2024PHQ-2AnswerDate RecordedPatient Health Questionnaire-2 Fxpob639[place] human resource s[place] of Occupational Health - Occupational Stress QuestionnaireAnswerDate RecordedDo you feel stress - tense, restless, nervous, or anxious, or unable to sleep at night because yourmind is troubled all the time - these days?Only a zwkmxw0408/26/2024 Exercise Vital SignAnswerDate RecordedOn average, how many [...] steady place to sleep or slept in marquetteelter (including now)?No07/10/2023Housing Stability Vital SignAnswerDate RecordedIn the last 12 months, was there a time when you were not able to pay the mortgage or rent on time?No08/26/2024Number of Times Moved in the Last Year Not on file08/26/2024t any time in the past 12 months, were you homeless or living in a halfway (including now)?No08/26/2024CommentsUnknownSex and Gender InformationValueDate RecordedSex Assigned at BirthNot on fileLegal Sex Pbevbm8509/20/2022 6:50 PM EDTGender IdentityNot on fileSexual OrientationNot on filedocumented as of this encounter Functional Status * AUDIT-C ScoreAnswerDate of CaqdleybqwNksjtw073/18/2025 6:13 PM Riley, Generic * Q1: How [...] or more drinks on one occasion?AnswerDate of OnlnlmfcevZywwuvGkmcf96/18/2025 6:13 PM Wiliam Lin * Over the past 2 weeks, how often have you been bothered by any of the following problems?QuestionAnswerDate of AssessmentAuthorLittle interest or pleasure in doing thingsNot at all01/26/2025 6:14 PM Marilyn Gibson MA Feeling down, depressed, or hopelessNot at all01/26/2025 6:14 PM Marilyn Gibson MAPatient Health Questionnaire-2 Sxwie749 6:14 PM EDT Marilyn Forman MA * [...] Plan of Treatment DateTypeDepartmentCare Team (Latest Contact Info)Vbivyoirakt45/20/2025 10:30 AM ESTOffice Visit [facility] [address] [place] [address] Rain Souza MD [address] [place] [address] documented as of this encounter Procedures Procedure NamePriorityDate/TimeAssociated DiagnosisCommentsMM TOMOSYNTHESIS SCREENING BI12/14/2023 11:21 AM EDT documented in this encounter Results * MM TOMOSYNTHESIS SCREENING BI (12/14/2023 11:21 AM EDT)Anatomical Region LateralityModalityOtherSpecimen (Source)Anatomical Location / Laterality Collection Method / VolumeCollection TimeReceived Time12/14/2023 11:21 AM EDT Narrative 12/14/2023 11:22 AM EDT [facility] ?[address] ? [place] [address] ? Mammography Report ? Signed ? Patient: MACIAS,MITZI L ?MR#: [id number] ?? : 1970 ?Acct:[id number] ?? Age/Sex: 53 / F ?ADM Date: 12/13/23 ?? Loc: MAMMO ? Attending Dr: Mckayla J Aichholz TECHNICAL TRAINING MANAGER ? Ordering Physician: Aichholz,Mckayla TECHNICAL TRAINING MANAGER ?Results: ? Date of Service: 12/13/23 ?Follow Up: ? Procedure(s): MM tomosynthesis screening BI ?? Accession Number(s): [id number] ? cc: Mckayla Blas TECHNICAL TRAINING MANAGER ? Patient Name: ? MITZI MACIAS ? MR#: [id number] ? : 1970 ? Exam Date: 12/13/2023 [...] at age ??75. ? LOCATION: ? [facility] ? BREAST COMPOSITION: ? The breasts [...] ?12/14/232 ? DD/ 1121 ? TD/TT: ? Billing Analyst: Procedure Note Radiology, Radiologist, - 12/14/2023 [place] [address] Mammography Report Signed Patient: MITZI MACIAS LMR#: [id number] : 1970Acct:[id number] Age/Sex: 53 / FADM Date: 12/13/23 Loc: MAMMO Attending Dr: Mckayla Blas NP Ordering Physician: Mckayla Blas NPResults: Date of Service: 12/13/23Follow Up: Procedure(s): MM tomosynthesis screening BI Accession Number(s): [id number] cc: Mckayla Blas NP Patient Name: MITZI MACIAS MR#: [id number] : 1970 Exam Date: 12/13/2023 Ordering Doctor: SAYDA Blas CLUB ATTENDANT RADIOLOGY REPORT PROCEDURE: MM TOMOSYNTHESIS SCREENING [...] at age 75. LOCATION: [facility] BREAST COMPOSITION: The breasts are almost [...] M.D. Signed By:12/14/23 1122 DD/ 1121 TD/TT: Billing Analyst: Authorizing ProviderResult TypeResult StatusLisa Wan NPCLINISYNC IMAGING Final Result documented in this encounter Visit Diagnoses Not on filedocumented in this encounter Care Teams Team MemberRelationshipSpecialtyStart DateEnd Date Ty Amin MD PCP - GeneralFamily Medicine09/20/23 Mckayla Blas NP [address] [place] [address] PCP - [facility]/ Mckayla Blas NP Nurse PractitionerFamily Medicine09/20/23documented as of this encounter
--- OUTSIDE RECORDS SUMMARY | 2025-05-13 11:59 | XMS_ITS | Clinical Summary ---
Author Organization [facility] Address [address] [place] [address] Care Team Providers Care Safety Director Name Role Phone Mckayla Blas MD Primary Care Provider [phone] Allergies No known active allergies Medications MedicationSigDispense [...] INJECT 48 UNITS SUBCUTANEOUSLY TWICE DAILY02/06/2022ctive HYDROcodone-acetaminophen ([place]) 5-325 mg tablet TAKE 1 TABLET BY MOUTH THREE TIMES A DAY NEEDED FOR PAIN MUST LAST 30 DAYS 11/09/2023ctive DULoxetine (Cymbalta) [address] capsule Take 1 tablet by mouth in the morning.Active ergocalciferol (Vitamin D-2) 1.25 MG (73585 Units) capsule Take 1.25 mg by mouth.Active [...] Problems ProblemNoted DateDiagnosed DateCellulitis of left lower hmyazkdxu13/03/2025Fever 12/09/2024igarette nicotine dependence without ltosycykvckd75/21/2025Vitamin D deficiency, esdgffzuxjh12/21/2025ntibiotic-induced yeast /19/2025 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 08/27/2024Long term current use of inhaled ikgwayj2508/27/2024Vitamin deficiency 08/27/2024ad odor of urine08/08/2024hronic diastolic heart upeucqr5308/08/2024 Myelolipoma of adrenal gland07/14/2024ritical limb ischemia of right lower utcyxvzyd74/12/2024Venous ulcer of right leg06/19/2024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 2 diabetes slraqvak27/05/2024 Overview (08/08/2024): Eye exam 05/13/24 Hyperpigmentation of skin04/14/20240486Inpbkdwkr10Headache Left flank painMixed incontinence urrent qabsjz65 Overview (11/14/2023): Added secondary to documentation in Social History. Candidiasis of dfyhnr88 Overview (11/14/2023): Last Assessment & Plan: Skin care, Non-seasonal allergic toemlivy98Encounter for screening mammogram for malignant neoplasm of wvfbsa53lass 3 severe obesity with serious comorbidity and body mass index (BMI) of 50.0 to 59.9 in adultdrenal mass 1 cm to 4 cm in tjxzbinc65/11/2024 11/14/20232528Fhojjtfxacw40ervical mrybov02 Chronic pain of both kneesecreased functional mobility GERD (gastroesophageal reflux disease) Wlogtbtytxliup70InsomniaKidney stone AD (peripheral artery disease)neumonia adiculopathy, lumbar khnpqk06Unilateral primary osteoarthritis, right hipVenous insufficiency Overview (11/14/2023): Last Assessment & Plan: Open wounds refer to [facility] Vaginal yeast ilipiuixh92nxiety and iavescqryx66/02/2024 11/14/2023ilateral lower extremity edema Overview (11/14/2023): Last Assessment & Plan: Continue w pamela, discussed skin care regimines as well Diabetic tkjduvnzec71Hypertension Overview (11/14/2023): Last Assessment & Plan: No changes today in meds Obstructive sleep apnea Overview (11/14/2023): Last Assessment & Plan: DME needs to send her a new mask for her machine, I have emphasized the importance of getting in touch with them so she can do this Type 2 diabetes mellitus with complication, with long-term current use of ikzplxv77 Overview (11/14/2023): Last Assessment & Plan: Continue with [facility] for management RAGHU wyztmuel10Other chronic painMI 50.0- 59.9, adult05/21/Easy zqywmpzn34losed fracture of upper end of kzqyeuu99/27/bdominal ohuppv89 Rfhqjq53ardiomegaly Overview (11/14/2023): borderline borderline Acute respiratory distress essejhlv18Gout Resolved Problems ProblemNoted DateDiagnosed DateResolved DatePulmonary tfvixzwnmfgv41/11/2024 Overview (11/14/2023): Last Assessment & Plan: Needs to wear her PAP I am also going to have her see [facility] Cardiology as well Family History Medical HistoryRelationNameCommentsHeart attackPaternal GrandmotherRelationName StatusCommentsFatherDeceasedMotherDeceasedPaternal Grandmother Social History Tobacco UseTypesPacks/DayYears UsedDateSmoking Tobacco: Every DayCigarettes Smokeless Tobacco: Never Tobacco Cessation:Ready to Q uit: Not Asked; Counseling Given: Not Answered Alcohol UseStandard Drinks/WeekCommentsNot Currently0 (1 standard drink = 0.6 oz pure alcohol)OR Safety & EnvironmentAnswerDate RecordedFear of Current or Ex-PartnerNot on file08/30/2023Emotionally AbusedNot on file08/30/2023hysically AbusedNot on file08/30/2023Sexually AbusedNot on file08/30/2023hysically or Sexually AbusedNot on file08/30/2023CommentsUnknownSex and Gender InformationValueDate RecordedSex Assigned at BirthNot on fileLegal SexFemale 01/04/2022 10:08 PM EDTGender IdentityNot on fileSexual OrientationNot on file Last Filed Vital Signs Vital SignReadingTime TakenCommentsBlood Boozoyhq771/6407 11:41 AM EDT Ubkuk746701/06/2025 11:41 AM QJKLnihimtwphz69.7 ??C (98.1 ??F)12/12/2018 2:44 PM EDTRespiratory Rate--Oxygen Snijadrzfl02%01/06/2025 11:41 AM EDTInhaled Oxygen Concentration--Iqfmvn214 kg (376 lb)01/06/2025 11:41 AM AQTLobkuo867.2 cm (5' 7 )01/06/2025 11:41 AM EDTBody Mass Index58.8907 11:41 AM EDT Plan of Treatment Health MaintenanceDue DateLast DoneCommentsCT Mqsnsvjdunnz04/17/1971Colonoscopy 1970Colorectal Cancer Gzfkkzqlo00/17/1971Diabetes: Hemoglobin A1C 1970FIT-DNA1970FIT1970FOBT1970Medicare Annual Wellness (AWV)1970 8227Hlapwynevzayd53/17/1971Diabetes: Retinopathy Tlmlyhkfx27/17/1981 Depression Cmhcodvgu64/17/1983Diabetes: Urine Protein Oofjizhvm60/17/1990 Hepatitis B Vaccines (1 of 3 - 19+ 3-dose series)1989Pap Smear1991 Adult Qpfzeuw2008/25/1992Cervical Cancer Kuhsmylmg69/17/2001HPV/Nandma5108/25/2000 Xlzalyiwy52/17/2011Pneumococcal Vaccine: Pediatrics (0 to 5 Years) and [...] Mckayla Blas MD [address] [place] [address] PCP - GeneralNurse Practitioner11/13/23
--- OUTSIDE RECORDS SUMMARY | 2025-05-13 11:59 | XMS_ITS | Encounter Summary ---
Author Organization [facility] Address [address] [place] [address] Care Team Providers Care Television Actor Name Role Phone Ty Amin MD Primary Care Provider [phone] Mckayla Blas NP Unavailable [phone] Mckayla Blas NP Unavailable [phone] Encounter Details DateTypeDepartmentCare Team (Latest Contact Info)Yeaiyaxowwn16/04/2024Clinisync Result Encounter [facility] External Department Unsolicited Provider, [...] relatives?Once a week08/26/2024How often do you attend uatsdin or sabianism services?More than 4 times per year08/26/2024Do you belong to any clubs or organizations such as uatsdin groups, unions, fraternal or athletic groups, or school groups?No08/26/2024How often do you attend meetings of the clubs or organizations you belong to?Never08/26/2024re you , , , , never , or living with a partner?Xscikks3608/26/2024UDIT-C AnswerDate RecordedQ1: How often do you have [...] heating?Not hard at all08/26/2024PHQ-2AnswerDate RecordedPatient Health Questionnaire-2 Irbvt985[place] human [place] of Occupational Health - Occupational Stress QuestionnaireAnswerDate RecordedDo you feel stress - tense, restless, nervous, or anxious, or unable to sleep at night because yourmind is troubled all the time - these days?Only a cpsjxx5908/26/2024 Exercise Vital SignAnswerDate RecordedOn average, how many [...] RecordedSex Assigned at BirthNot on fileLegal Sex Ybqyll8309/20/2022 6:50 PM EDTGender IdentityNot on fileSexual OrientationNot on filedocumented as of this encounter Functional Status * AUDIT-C ScoreAnswerDate of BkxqhjjeidXuvycv493/18/2025 6:13 PM Riley, Generic * Q1: How often do you have a drink containing alcohol?AnswerDate of Assessment AuthorMonthly or less08/26/2024 6:13 PM iRley Generic * Q2: How many drinks containing alcohol do you have on a typical day when you are drinking?AnswerDate of AssessmentAuthor1 or 6:13 PM EST Miguel Generic * Q3: How often do you have six or more drinks on one occasion?AnswerDate of MwxxmincsbSpxyrkUmmxy15/18/2025 6:13 PM Riley, Generic * Over the past 2 weeks, how often have you been bothered by any of the following problems?QuestionAnswerDate of AssessmentAuthorLittle interest or pleasure in doing thingsNot at all01/26/2025 6:14 PM Marilyn Gibson MA Feeling down, depressed, or hopelessNot at all01/26/2025 6:14 PM Marilyn Gibson MAPatient Health Questionnaire-2 Zwyxn834 6:14 PM EDT Marilyn Forman MA * [...] Plan of Treatment DateTypeDepartmentCare Team (Latest Contact Info)Xsvezgnpwjc18/20/2025 10:30 AM ESTOffice Visit [facility] [address] [place] [address] Rain Suoza MD [address] [place] [address] documented as of this encounter Procedures Procedure NamePriorityDate/TimeAssociated DiagnosisCommentsMR LUMBAR SPINE WO CON05/12/2024 2:41 PM EST documented in this encounter Results * MR LUMBAR SPINE WO CON (05/12/2024 2:41 PM EST)Anatomical RegionLaterality ModalityOtherSpecimen (Source)Anatomical Location / LateralityCollection Method / VolumeCollection TimeReceived Time05/12/2024 2:41 PM EST Narrative 05/12/2024 2:43 PM EST [facility] ?[address] ? [place] [address] ? Magnetic Resonance Report ? Signed ? Patient: MACIAS,MITZI L ?MR#: [id number] ?? : 1970 ?Acct:[id number] ?? Age/Sex: 53 / F ?ADM Date: 05/12/24 ?? Loc: MRI ? Attending Dr: Celestina Chin PHOTONICS ENGINEERING TECHNOLOGIST ? Ordering Physician: Celestina Chin NP ?? Date of Service: 05/12/24 ?? Procedure(s): MR lumbar spine wo con ?? Accession Number(s): [id number] ? cc: Mckayla Blas NP; Celestina Chin NP ? [facility] ? [address] ? [place] [address] ? Patient Name: ?? MITZI MACIAS ? MRN: [id number] ? date: 1970 ?Sex: F ?? Assigned Patient Location: MRI ?? Current Patient Location: CT ?? Accession/Order Number: [id number] ?? Exam Date: 05/12/2024 ??09:21 ?Report Date: [...] 1443 ? DD/ 1441 ? TD/TT: ? Pick Up Attendant: Procedure Note Radiology, Radiologist, MD - 05/12/[address] [address] Magnetic Resonance Report Signed Patient: MITZI MACIAS LMR#: [id number] : 1970Acct:[id number] Age/Sex: 53 / FADM Date: 05/12/24 Loc: MRI Attending Dr: Celestina Chin NP Ordering Physician: Celestina Chin NP Date of Service: 05/12/24 Procedure(s): MR lumbar spine wo con Accession Number(s): [id number] cc: Mckayla Blas NP; Celestina Chin NP [address] [address] Patient Name: MITZI MACIAS MRN: [id number] date: 1970 Sex: F Assigned Patient Location: MRI Current Patient Location: CT Accession/Order Number: [id number] Exam Date: 05/12/2024 09:21 Report Date: 05/12/2024 [...] Gardner M.D. Signed By:05/12/241442 DD/ 40 TD/TT: Pick Up Attendant: Authorizing ProviderResult TypeResult StatusGeneric External Data Provider CLINISYNC IMAGINGFinal Result documented in this encounter Visit Diagnoses Not on filedocumented in this encounter Additional Health Concerns AssessmentNoted TimePQ-9 Depression Total Score: 307 10:08 AM EDT documented as of this encounter Care Teams Team MemberRelationshipSpecialtyStart DateEnd Date Ty Amin MD PCP - GeneralFamily Medicine09/20/23 Mckayla Blas NP [address] [place] [address] PCP - [facility]/ Mckayla Blas NP Nurse PractitionerFamily Medicine09/20/23documented as of this encounter
--- OUTSIDE RECORDS SUMMARY | 2025-05-13 11:59 | XMS_ITS | Encounter Summary ---
Author Organization [facility] Address [address] [place] [address] Care Team Providers Care Electric Welder Helper Name Role Phone Ty Amin MD Primary Care Provider [phone] Mckayla Blas NP Unavailable [phone] Mckayla Blas NP Unavailable [phone] Encounter Details DateTypeDepartmentCare Team (Latest Contact Info)Fqumzbinvpe08/04/2024Clinisync Result Encounter [facility] External Department Unsolicited Provider, [...] week08/26/2024How often do you attend hinduism or taoism services?More than 4 times per year08/26/2024Do you belong to any clubs or organizations such as hinduism groups, unions, fraternal or athletic groups, or school groups?No08/26/2024How often do you attend meetings of the clubs or organizations you belong to?Never08/26/2024re you , , , , never , or living with a partner?Eloqizv7508/26/2024UDIT-C AnswerDate RecordedQ1: How often do you have [...] heating?Not hard at all08/26/2024PHQ-2AnswerDate RecordedPatient Health Questionnaire-2 Ecgbf173[facility] [place] of Occupational Health - Occupational Stress QuestionnaireAnswerDate RecordedDo you feel stress - tense, restless, nervous, or anxious, or unable to sleep at night because yourmind is troubled all the time - these days?Only a jegiqs5108/26/2024 Exercise Vital SignAnswerDate RecordedOn average, how many [...] homeless or living in a chcf (including now)?No08/26/2024CommentsUnknownSex and Gender InformationValueDate RecordedSex Assigned at BirthNot on fileLegal Sex Blxgqc6009/20/2022 6:50 PM EDTGender IdentityNot on fileSexual OrientationNot on filedocumented as of this encounter Functional Status * AUDIT-C ScoreAnswerDate of LqpipkfrzdPdslcx776/18/2025 6:13 PM Riley, Generic * Q1: How [...] or more drinks on one occasion?AnswerDate of JlydcwkhjyDkjgnwOwxqt87/18/2025 6:13 PM Riley, Generic * Over the past 2 weeks, how often have you been bothered by any of the following problems?QuestionAnswerDate of AssessmentAuthorLittle interest or pleasure in doing thingsNot at all01/26/2025 6:14 PM Marilyn Gibson MA Feeling down, depressed, or hopelessNot at all01/26/2025 6:14 PM Marilyn Gibson MAPatient Health Questionnaire-2 Sswam703 6:14 PM EDT Marilyn Forman MA * [...] Plan of Treatment DateTypeDepartmentCare Team (Latest Contact Info)Fpzuzjmfzef66/20/2025 10:30 AM ESTOffice Visit [facility] [address] [place] [address] Rain Souza MD [address] [place] [address] documented as of this encounter Procedures Procedure NamePriorityDate/TimeAssociated DiagnosisCommentsCT ABDOMEN PELVIS W CON05/12/2024 2:16 PM EST documented in this encounter Results * CT ABDOMEN PELVIS W CON (05/12/2024 2:16 PM EST)Anatomical RegionLaterality ModalityOtherSpecimen (Source)Anatomical Location / LateralityCollection Method / VolumeCollection TimeReceived Time05/12/2024 2:16 PM EST Narrative 05/12/2024 2:19 PM EST [facility] ?[address] ? [place] [address] ? CT Scan Report ? Signed ? Patient: DIONISIO,MITZI L ?MR#: [id number] ?? : 1970 ?Acct:[id number] ?? Age/Sex: 53 / F ?ADM Date: 05/12/24 ?? Loc: CT ? Attending Dr: Gaviota MAYERS ? Ordering Physician: Gaviota Vega ?? Date of Service: 05/12/24 ?? Procedure(s): CT abdomen pelvis w con ?? Accession Number(s): [id number] ? cc: Mckayla Blas NP ? [facility] ? [address] ? [place] [address] ? Patient Name: ?? MITZI MACIAS ? MRN: [facility]:[id number] ? date: 1970 ?Sex: F ?? Assigned Patient Location: CT ?? Current Patient Location: WC ?? Accession/Order Number: [id number] ?? Exam Date: 05/12/2024 ??11:15 ?Report Date: [...] as described above. ? Electronically authenticated by: DRA ??LALO ?? Date: 05/12/2024 ??14:16 ? Dictated By: ?Dar Dai M.D. ? Signed By: ?05/12/24 1419 ? DD/ 1416 ? TD/TT: ? Caramel Cutter Helper: Procedure Note Radiology, Radiologist, MD - 05/12/[address] [address] [address] Scan Report Signed Patient: MITZI MACIAS LMR#: [id number] : 1970Acct:[id number] Age/Sex: 53 / FADM Date: 05/12/24 Loc: CT Attending Dr: Gaviota MAYERS Ordering Physician: Gaviota Vega Date of Service: 05/12/24 Procedure(s): CT abdomen pelvis w con Accession Number(s): [id number] cc: Mckayla Blas NP [place] [address] [place] [place] [id number] Patient Name: MITZI MACIAS MRN: [facility]:[id number] date: 1970 Sex: F Assigned Patient Location: CT Current Patient Location: Accession/Order Number: [id number] Exam Date: 05/12/2024 11:15 Report Date: 05/12/2024 [...] M.D. Signed By:05/12/24 1419 DD/ 1416 TD/TT: Caramel Cutter Helper: Authorizing ProviderResult TypeResult StatusGeneric External Data Provider CL[facility]NC IMAGINGFinal Result documented in this encounter Visit Diagnoses Not on filedocumented in this encounter Additional Health Concerns AssessmentNoted TimePHQ-9 Depression Total Score: 307 10:08 AM EDT documented as of this encounter Care Teams Team MemberRelationshipSpecialtyStart DateEnd Date Ty Amin MD PCP - GeneralFamily Medicine09/20/23 Mckayla Blas NP [address] [place] [address] PCP - [facility]/ Mckayla Blas NP Nurse PractitionerFamily Medicine09/20/23documented as of this encounter
--- OUTSIDE RECORDS SUMMARY | 2025-05-13 11:59 | XMS_ITS | Clinical Summary ---
Author Organization [employer] Address [id number] [address] [place] [address] Care Team Providers Care Fugitive Detective Name Role Phone Wan Mckayla Rice APRN-PATCH SETTER Primary Care Provider Allergies No known active [...] mg/0.5 mL pen injector inject one pen uummuv2104/12/2020Active DULoxetine (CYMBALTA) 60 mg capsule Take 1 [...] get venous reflux ultrasound. Other chronic pain1ANA dcofhzjp91/11/2021Preop cardiovascular exam 05/28/20204820Kpeshai63/20/2020 Assessment & Plan (06/19/2024 2:16 PM EST): Counseled on smoking cessation for at least 3 minutes. She is willing to quit. Morbid ybdzcgv1605/28/2020BMI 50.0-59.9, adult05/21/2020 Family History Medical HistoryRelationNameCommentsCancerPaternal GrandfatherCancerPaternal GrandmotherHeart diseasePaternal GrandmotherStrokePaternal GrandmotherRelation NameStatusCommentsFatherDeceasedMotherDeceasedPaternal GrandfatherPaternal Grandmother Social History Tobacco UseTypesPacks/DayYears UsedDateSmoking Tobacco: Every DayCigarettes Smokeless Tobacco: NeverAlcohol UseStandard Drinks/WeekCommentsYes0 (1 standard drink = 0.6 oz pure alcohol)RAREChildcareAnswerDate RecordedChildcareUnknown 12/12/2018EmploymentAnswerDate XljfyjyrWmwpybmbykLgczhpd15/06/2019Purpose - Life AnswerDate RecordedPurpose and direction in zbjxIlvqmqt65/06/2021 CommentsUnknownSex and Gender InformationValueDate RecordedSex Assigned at Not on fileLegal EoaXrlhoj37/06/2015 11:50 AM EDTGender IdentityNot on file Sexual OrientationNot on file Last Filed Vital Signs Vital SignReadingTime TakenCommentsBlood Eeiiryix708/7006/19/2024 11:26 AM EST Vjkvi417206/19/2024 11:26 AM APHUdmcyqphugr07.7 ??C (98 ??F)06/19/2024 11:26 AM ESTRespiratory Fren077208/20/2023 11:26 AM ESTOxygen Rnnaupooqn49%06/11/2020 9:27 AM ESTInhaled Oxygen Concentration--Oohsyq548.6 kg (374 lb)06/19/2024 11:26 AM MOTLodwep896 cm (5' 6.93 )06/19/2024 11:26 AM ESTBody Mass Index58.7108/20/2023 11:26 AM EST Plan of Treatment Health MaintenanceDue DateLast DoneCommentsStatin Use: Bmrdjwsppumpdq11/17/1971 Depression Slykkeqxm11/17/1983Tobacco Toccdajrx77/17/1983Adult BMI Follow Up Plan1988DTaP,Tdap and Td Vaccines (1 - Tdap)1989Pap Smear1991 Zoster (Shingles) Vaccine (1 of 2)1COVID-19 Vaccine (4 - 2024-26 season)5007/19/2021, 10/28/2020, 10/08/2020Influenza Lddbicm0003/09/2025 05/18/2023, 04/16/2017, 05/10/2016, Additional history existsAdult BMI Screening Medical Devices Not on file Insurance Care Teams Team MemberRelationshipSpecialtyStart DateEnd Date Mckayla Blas, DIETARY TECH-PATCH SETTER [address] [place] [address] PCP - GeneralNurse Practitioner09/25/18
--- OUTSIDE RECORDS SUMMARY | 2025-05-13 11:59 | XMS_ITS | Encounter Summary ---
Author Organization [facility] Address [address] [place] [address] Care Team Providers Care Unit Manager [employer]ience [employer] Name Role Phone Ty Amin MD Primary Care Provider [phone] Ty Amin MD Primary Care Provider [phone] Mckayla Blas SENSOR OPERATOR Unavailable [phone] Mckayla Blas SENSOR OPERATOR Unavailable [phone] Encounter Details DateTypeDepartmentCare Team (Latest Contact Info)Yvhcltjhmso29/23/2024Clinisync Result Encounter [facility] External Department Unsolicited Andra Alcala PA [address] [place], [place] [id number] Social History Tobacco UseTypesPacks/DayYears UsedDateSmoking Tobacco: Every [...] relatives?Once a week08/26/2024How often do you attend judaism or restorationist services?More than 4 times per year08/26/2024Do you belong to any clubs or organizations such as judaism groups, unions, fraternal or athletic groups, or school groups?No08/26/2024How often do you attend meetings of the clubs or organizations you belong to?Never08/26/2024re you , , , , never , or living with a partner?Xjcjtfg9408/26/2024UDIT-C AnswerDate RecordedQ1: How often do you have [...] heating?Not hard at all08/26/2024PHQ-2AnswerDate RecordedPatient Health Questionnaire-2 Uqbik597[facility]ast[facility] [place] of Occupational Health - Occupational Stress QuestionnaireAnswerDate RecordedDo you feel stress - tense, restless, nervous, or anxious, or unable to sleep at night because yourmind is troubled all the time - these days?Only a rbdnsh2108/26/2024 Exercise Vital SignAnswerDate RecordedOn average, how many [...] RecordedSex Assigned at BirthNot on fileLegal Sex Xpnfgx1309/20/2022 6:50 PM EDTGender IdentityNot on fileSexual OrientationNot on filedocumented as of this encounter Functional Status * AUDIT-C ScoreAnswerDate of UikazhvkygQpiygm087/18/2025 6:13 PM ESTMychart, Generic * Q1: How [...] or more drinks on one occasion?AnswerDate of XsrlijlfbpMgxfsiOtnht86/18/2025 6:13 PM Riley Generic * Over the past 2 weeks, how often have you been bothered by any of the following problems?QuestionAnswerDate of AssessmentAuthorLittle interest or pleasure in doing thingsNot at all01/26/2025 6:14 PM Marilyn Gibson MA Feeling down, depressed, or hopelessNot at all01/26/2025 6:14 PM Marilyn Gibson MAPatient Health Questionnaire-2 Ofask325 6:14 PM EDT Marilyn Forman MA * [...] Plan of Treatment DateTypeDepartmentCare Team (Latest Contact Info)Zarctixrrhj63/20/2025 10:30 AM ESTOffice Visit [facility] [address] [place] [address] Rain Souza MD [address] [place] [address] documented as of this encounter Procedures Procedure NamePriorityDate/TimeAssociated DiagnosisCommentsBLOOD CULTURE 2 Xujnpzk9409/10/2023 2:22 PM EST BLOOD CULTURE 0Suwghpt45/04/2024 2:05 PM EST ECG 12-LEAD08/31/2023 6:08 PM [...] BLOOD ORDERABLESFinal ResultPerforming OrganizationAddressCity/State/ZIP Code Phone Number [facility] * BLOOD CULTURE 1 (09/10/2023 2:05 [...] EST Narrative 09/02/2023 7:32 AM EST [facility] ?[address] ? [place] [id number] ? Electrocardiograph Report ? Signed ? Patient: MITZI MACIAS L ?MR#: [id number] ?? : 1970 ?Acct:[id number] ?? Age/Sex: 53 / F ?ADM Date: 08/31/23 ?? Loc: [place] ??214-1 ? Attending Dr: Jacqueline Becerra D.O. ? Ordering Physician: Andra Alcala ?? Date of Service: 08/31/23 ?? Procedure(s): ECG 12 lead ?? Accession Number(s): [id number] ? cc: ?[facility] ? Test Date: ?2023-08-31 ?? Pat Name: ? MITZI MACIAS ?Department: ? Room: ? - ?? Gender: ? Female ? Manager Behavior: ? : ?1970 ? Requested By: MCKAYLA BERMUDEZHHOLZ ?? Order Number: [id number] ?Reading MD: ?? LAURI ??BALL ? Measurements ?? Intervals ?Offerman ? Rate: ? 102 ?P: ?67 ?? DC: ? 144 ?QRS: ?52 ?? QRSD: ? [...] 0732 ? DD/ 1808 ? TD/TT: ? Fibre Optics Jointer: Procedure Note Radiology, Radiologist, MD - 09/02/[address] [address] Electrocardiograph Report Signed Patient: MITZI MACIAS LMR#: [id number] : 1970Acct:[id number] Age/Sex: 53 / FADM Date: 08/31/23 Loc: [place] 214-[address]: Jacqueline Becerra D.O. Ordering Physician: Andra Alcala Date of Service: 08/31/23 Procedure(s): ECG 12 lead Accession Number(s): [id number] cc: [facility] Test Date: 2023-08-31 Pat Name: MITZI MACIAS Department: Room: - Gender: Female Manager Behavior: : 1970 Requested By: MCKAYLA BLAS Order Number: [id number] Reading MD: LAURI DIOR Measurements Intervals Offerman Rate: 102 P: 67 DC: 144 QRS: 52 QRSD: 72 T: 49 QT: 326 QTc: 385 Interpretive Statements 1120 Sinus tachycardia 4068 Nonspecific Twave abnormality 8102 Low QRS voltage in chest leads 9140 abnormal rhythm ECG Compared to ECG 12/04/2022 21:27:48 Electronically Signed On 09-02-2023 7:31:43 EST by LAURI DIOR Dictated By: Lauri Dior D.O. Signed By:09/02/23 0732 DD/ 1808 TD/TT: Fibre Optics Jointer: Authorizing ProviderResult TypeResult StatusAmy Cari PACLREGIONAL MEDICAL CENTER OF JACKSONVILLEYNC IMAGINGFinal Result documented in this encounter Visit Diagnoses Not on filedocumented in this encounter Care Teams Team MemberRelationshipSpecialtyStart DateEnd Date Ty Amin MD PCP - GeneralFamily Medicine Ty Amin MD PCP - GeneralFamily Medicine09/20/23 Mckayla Blas NP [address] [place] [address] [facility]/ Mckayla Blas NP Nurse PractitionerFamiPhoebe Putney Memorial Hospital09/20/23documented as of this encounter
--- OUTSIDE RECORDS SUMMARY | 2025-05-13 11:59 | XMS_ITS | Clinical Summary ---
Author Organization [facility] Address [address] [place] [address] Care Team Providers Care Operations Logistics Analyst Name Role Phone Ty Amin MD Primary Care Provider [phone] Mckayla Blas NP Unavailable [phone] Allergies No known active allergies Medications [...] (six) hours if needed for wheezingActive HYDROcodone-acetaminophen ([place]) 5-325 MG tablet 1 tablet as needed [...] 2 diabetes mellitus with other circulatory complications ([facility]) USE TO TEST BLOOD SUGAR 4 TIMES DAILY 400 strip 4Active baclofen (Lioresal) 10 MG tablet Take 10 mg by mouth in the morning and 10 mg in the evening and 10 mg before bedtime.4Active naloxone (Narcan) 4 mg/0.1 mL nasal spray Administer 4 mg into affected nostril(s) if aaqaru714Active nicotine (Nicoderm, Step 1) 21 MG/24HR patch [...] DAYS 5Active ergocalciferol (Vitamin D2) 1.25 MG (58962 UT) capsule Indications:Vitamin D deficiency, unspecifiedTake 1 [...] of insulin ([facility])Chew 1 tablet (81 mg) Daily 90 tablet [...] of insulin ([facility])Inject 58 Units under the skin in the morning and 58 Units before bedtime. 104.4 mL 107501/6Active insulin glargine (Lantus SoloStar) 100 UNIT/ML pen Indications:Type 2 diabetes mellitus with hyperglycemia, with long-term current use of insulin ([facility])INJECT 58 UNITS SUBCUTANEOUSLY TWICE A DAY 105 mL 5Active Tirzepatide (Mounjaro) 15 MG/0.5ML solution auto-injector Indications:Type 2 diabetes mellitus with other circulatory complications ([facility]) Inject 15 mg under the skin 1 (one) time per week 6 mL 5Active varenicline (Chantix) 1 MG tablet Indications:Tobacco user,Encounter for smoking cessation counselingTAKE 1 TABLET BY MOUTH IN THE MORNING AND 1 TABLET BEFORE BEDTIME. TAKE WITH FULL GLASS OF WATER. 60 tablet 5Active Active Problems ProblemNoted DateDiagnosed DateStasis dermatitis with ulcer of right lower extremity due to peripheral venous ahblzbetawho09/03/2456Eedtc48/03/2025 Assessment & Plan (12/09/2024 7:26 AM EDT): Tylenol prn fever Finish atb's Cellulitis of left lower rtndpbexm63/03/2025 Assessment & Plan (12/09/2024 11:27 AM EDT): Finish atbs Keep appt with wound care A febrile Will call me if worsening in sxs Cigarette nicotine dependence without mncegiiypgop93/21/2025 Assessment & Plan (10/27/2024 2:40 PM EDT): Is currently using chantix, and is doing well, less desire, smoking less Vitamin D deficiency, oxudapguakm11/21/2025Gastro-esophageal reflux disease without obyrfyerxky73/21/2025 Assessment & Plan (01/26/2025 7:51 AM EDT): Recommendations: freq small meals, nothing to eat or drink at least 2 hours prior to bed, limit caffeine, alcohol, as well as spicy foods Meds to limit or avoid if possible: NSAIDS Elevate HOB if possible Current meds: ompeprazole Morbid (severe) obesity due to excess zmrusmtc99/19/2025 Assessment & Plan (01/26/2025 6:46 PM EDT): [...] as possible shelter current use of inhaled vnjdmyn6408/27/2024Non-pressure chronic ulcer of other part of left lower leg limited to breakdown of skin08/27/2024Vitamin ojoxsmmkow35/19/2025ntibiotic-induced yeast edvauegia66/19/2025hronic diastolic heart qfnsjan3808/08/2024 Assessment & Plan (01/26/2025 7:52 AM EDT): [...] counseling 07/14/2024ritical limb ischemia of right lower bqadqyaep82/12/2024 Assessment & Plan (07/14/2024 7:32 PM EST): Saw vascular, does have narrowing in arteries in legs, and thus the wounds not healing At this point they strongly urge to quit smoking or risk limb amputation Cont asa and statin Also good blood pressure and sugar control 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 Does have left OM, will treat for this and if not better can try ubrelvy #3 samples given: Lot [id number], exp 03/2025 Mixed ffcdidkypwyh34/08/0434Wtkgwammx94/08/2024Encounter for screening mammogram for malignant neoplasm of yblabq7811/01/2023Non-seasonal allergic rhinitis 11/01/2023andidiasis of gkutpx6511/01/2023 Assessment & Plan (11/01/2023 11:21 AM EDT): Skin care, Jdpcwewm69/11/2024 Assessment & Plan (01/26/2025 6:44 PM EDT): elavil Radiculopathy, lumbar izgqhj7709/17/2023 Assessment & Plan (07/14/2024 7:36 PM EST): [...] is necessary they take over prescribing Pancreatitis ([facility])09/17/2023OPD cczglapmctjd76/11/2024 Assessment & Plan (12/09/2024 11:26 AM EDT): [...] non labored and no cyanosis noted Venous /11/2024 Assessment & Plan (11/01/2023 11:17 AM EDT): Open wounds refer to [facility] Wound Care Pulmonary /11/2024 Assessment & Plan (01/26/2025 7:52 AM EDT): Has seen [facility] Cardiology Assessment & Plan (12/09/2024 7:23 AM EDT): Has seen [facility] Cardiology Assessment & Plan (11/15/2023 3:49 PM EDT): Saw [facility] Cardiology See notes Going to see Pulmonary Assessment & Plan (09/27/2023 1:03 PM EDT): Needs to wear her PAP I am also going to have her see [facility] Cardiology as well PAD (peripheral artery disease)09/17/2023 Assessment & Plan (10/27/2024 2:38 PM EDT): Asa, statin Quit smoking BP and DM control Assessment & Plan (07/14/2024 7:32 PM EST): Asa, statin Quit smoking BP and DM control Malignant neoplasm of cervix uteri, rfwkcomeaht71/11/2024 Assessment & Plan (08/27/2024 7:33 AM EST): Had in the past, had hysterectomy Vaqlqokraat46/11/2024Unilateral primary osteoarthritis, right hip09/17/2023 Chronic pain of both knees09/17/20236429Jxbzprkxqxkjpr11/11/2024 Assessment & Plan (01/26/2025 7:49 AM EDT): On statin therapy Check labs yearly and prn dose changes Assessment & Plan (08/27/2024 7:36 AM EST): On statin therapy Check labs yearly and prn dose changes Decreased functional btixmsfx93/11/2024drenal mass 1 cm to 4 cm in diameter 09/17/2023 Assessment & Plan (07/14/2024 7:33 PM EST): Continue with Urology Kidney stone09/17/2023 Assessment & Plan (07/14/2024 7:32 PM EST): Continue with Urology Adprrdfqoho95/11/2024Vaginal yeast mofmojtxw92/09/2024 Assessment & Plan (01/26/2025 6:46 PM EDT): [...] reach out to DME for help Diabetic wgrwahzkkn48/02/2024 Assessment & Plan (01/26/2025 7:53 AM EDT): [...] spiriva Will trial breztri: #2 samples given [id number], exp 03/03, rinse mouth after use Give [...] no changes in inhalers Recommend quitting smoking Yakzgq5407/10/2023 Assessment & Plan (01/26/2025 6:44 PM EDT): Current meds: albuterol, duoneb, Has warrant clerk 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 Assessment & Plan (08/27/2024 7:30 AM EST): Current meds: albuterol, duoneb, Has warrant clerk 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 Assessment & Plan (01/17/2024 12:36 PM EDT): Cont w inhalers, pulmonology Quit smoking Lwkxcdilxvzm67/02/2024 Assessment & Plan (01/26/2025 7:52 AM EDT): [...] from hospital, lost script I did contact [facility] in [place], they will get another fill on this and have ready for patient Fu in 4 weeks Assessment & Plan (07/10/2023 11:59 AM EST): Stable on current dose of meds Type 2 diabetes mellitus with complication, with long-term current use of vjzhisb1707/10/2023 Assessment & Plan (01/26/2025 7:50 AM EDT): [...] odonnell for management of diabetes Anxiety and duairwlwrb07/02/2024 Assessment & Plan (01/26/2025 6:46 PM EDT): [...] discussed skin care regimines as well RAGHU jlaanwdm89/11/0273Ynbtitiikyer45/19/2018 Overview (09/17/2023): borderline Gout10/25/2017 Resolved Problems ProblemNoted [...] left ear without spontaneous rupture of tympanic qiwnvsxq16lass 3 severe obesity with serious comorbidity and body mass index (BMI) of 50.0 to 59.9 in adult09/27/2023 04/14/20247570Xtwsinmzf06/11/202404/GERD (gastroesophageal reflux disease) Assessment & Plan (10/27/2024 [...] (BMI) of 60.0 to 69.9 in adult/bdominal iklabt32 Encounters DateTypeDepartmentCare QyfuHagaogfiaou26/01/2025Refill [facility] [address] [place] [address] Mckayla Blas NP Tobacco user; Encounter for smoking cessation fvwvqgaxwo62/22/2025Refill [facility] [address] [place] [address] Amber Pinzon LPN Type 2 diabetes mellitus with other circulatory complications (HCC)02/26/2025 Refill [facility] [address] [place] [address] Rain Odonnell MD Type 2 diabetes mellitus with other circulatory complications (HCC)02/18/2025 Abstract [facility] [address] [place] [address] Mckayla Blas NP 02/14/2025Refill [facility] [address] [place] [address] Rain Odonnell MD Type 2 diabetes mellitus with hyperglycemia, with long-term current use of insulin (HCC)from Last 3 Months Immunizations ImmunizationAdministration DatesNext DueInfluenza Whole05/02/2013Influenza, E6J9-090504/09/2017,05/10/2016Influenza, Ptpguzjqmfs11/10/2023,04/16/2017, 05/10/2016Influenza, injectable, tzkotiodgseb32/10/2023,05/02/2013MMR01/29/1998 Pneumococcal Polysaccharide BNWQ3234 Family History Medical HistoryRelationNameCommentsNo Known ProblemsFatherVaricose veinsFather's [...] other written material from your doctor or pharmacy?Khozxx2108/26/2024Humiliation, Afraid, Rape, and Kick questionnaireAnswerDate RecordedWithin the [...] relatives?Once a week08/26/2024How often do you attend quaker or alevism services?More than 4 times per year 08/26/2024Do you belong to any clubs or organizations such as quaker groups, unions, fraternal or athletic groups, or school groups?No08/26/2024How often do you attend meetings of the clubs or organizations you belong to?Never08/26/2024 Are you , , , , never , or living with a partner?Hqfaavv3208/26/2024UDIT-CAnswerDate RecordedQ1: How often do you have a [...] hard at all08/26/2024PHQ-2AnswerDate RecordedPatient Health Questionnaire-2 Score0 01/26/2025[facility] - Occupational Stress QuestionnaireAnswerDate RecordedDo you feel stress - tense, restless, nervous, or anxious, or unable to sleep at night because yourmind is troubled all the time - these days?Only a bmepar3908/26/2024Exercise Vital SignAnswerDate Recorded On average, how many [...] or living in a group home (including now)?No08/26/2024 CommentsUnknownSex and Gender InformationValueDate RecordedSex Assigned at BirthNot on fileLegal YrbMtvbci00/15/2023 6:50 PM EDTGender IdentityNot on fileSexual OrientationNot on file Last Filed Vital Signs Vital SignReadingTime TakenCommentsBlood Iyhkhqvu031/70001/29/2025 9:48 AM EDT Ogorc3191/24/2025 9:48 AM MMUMbckhqxhcrd64.9 ??C (98.5 ??F)01/26/2025 6:11 PM EDTRespiratory Enrg598101/29/2025 9:48 AM EDTOxygen Ldcukcweqd87%01/29/2025 9:48 AM EDTInhaled Oxygen Concentration--Wnlymp851 kg (360 lb)01/29/2025 9:48 AM EDT Xlfbwm279.2 cm (5' 7 )01/29/2025 9:48 AM EDTBody Mass Index56.3807 9:48 AM EDT Plan of Treatment DateTypeDepartmentCare Team (Latest Contact Info)Wujmqazvjhw86/20/2025 10:30 AM ESTOffice Visit [facility] [address] [place] [address] Rain Odonnell MD [address] [place] [address] Health MaintenanceDue DateLast DoneCommentsCT Wofhdtkiigrc66/17/1971Colonoscopy 1970FIT1970FOBT1970 2033Rftwodatwyzok26/17/1971HPV/Kiqlwt4308/25/2000 Pap Smear04/, 10/08/20155496Umvlgjqrs17/07/340738/01/2024, 12/14/2023, 3COVID-19 Vaccine ( season)/05/2022, 10/28/2020, 10/08/2020Influenza Vaccine (#1)/04/2023, 05/18/2023, 04/16/2017, Additional history existsColorectal Cancer Sdljwbcrt52/26/2026 FIT-DNA603Pneumococcal Vaccine: Pediatrics (0 to 5 Years) [...] EDT The ?[address] ? [place] [address] ? Mammography Report ? Signed ? Patient: MACIAS,SINA L ?MR#: [id number] ?? : 1970 ?Acct:[id number] ?? Age/Sex: 53 / F ?ADM Date: 12/13/23 ?? Loc: MAMMO ? Attending Dr: Mckayla J Aichholz MANAGER SOCIAL MEDIA ? Ordering Physician: Juanjosehdallin,Mckayla MANAGER SOCIAL MEDIA ?Results: ? Date of Service: 12/13/23 ?Follow Up: ? Procedure(s): MM tomosynthesis screening BI ?? Accession Number(s): [id number] ? cc: Mckayla Blas MANAGER SOCIAL MEDIA ? Patient Name: ? SINA MACIAS ? MR#: [id number] ? : 1970 ? Exam Date: 12/13/2023 [...] 1122 ? DD/ 1121 ? TD/TT: ? Wrapper Stemmer Hand: Procedure Note Radiology, Radiologist, MD - 12/14/2023 [place] [address] Mammography Report Signed Patient: SINA MACIAS LMR#: [id number] : 1970Acct:[id number] Age/Sex: 53 / FADM Date: 12/13/23 Loc: MAMMO Attending Dr: Mckayla Blas NP Ordering Physician: Mckayla Blas NPResults: Date of Service: 12/13/23Follow Up: Procedure(s): MM tomosynthesis screening BI Accession Number(s): [id number] cc: Mckayla Blas NP Patient Name: SINA MACIAS MR#: [id number] : 1970 Exam Date: 12/13/2023 Ordering Doctor: SAYDA Blas EDITOR NEWSPAPER RADIOLOGY REPORT PROCEDURE: MM TOMOSYNTHESIS SCREENING BI [...] M.D. Signed By:12/14/23 1122 DD/ 1121 TD/TT: Wrapper Stemmer Hand: Authorizing ProviderResult TypeResult StatusLisa Wan NPCLINISYNC IMAGING Final Result from Last 3 Months or Most Recently Relevant to Health Maintenance Insurance Care Teams Team MemberRelationshipSpecialtyStart DateEnd Date Ty Amin MD PCP - GeneralFamily Medicine09/20/23 Mckayla Blas NP Nurse PractitionerFamily Medicine09/20/23
--- OUTSIDE RECORDS SUMMARY | 2025-05-13 12:04 | XMS_ITS | CCD ---
Author Organization [facility] Care Team Providers Care Cork Cutter Name Role Phone Rufino Benavidez Primary Care Provider [phone] RUFINO BENAVIDEZ Primary Care Unavailable SHENDGE, VITHAL Admitting Unavailable SHENDGE, VITHAL Attending Unavailable AICHHOLZ, MCKAYLA Primary Care Unavailable AICHHOLZ, MCKAYLA Referring Unavailable AICHHOLZ, MCKAYLA J Primary Care Physician [phone] Tico, Stephanie Unavailable OLE RAMIREZ Attending Unavailable OLE RAMIREZ Consulting Unavailable AICHHOLZ, DIAMOND MERCHANT MCKAYLA Primary Care Unavailable OLE RAMIREZ Admitting Unavailable ANTONY SHRESTHA Consulting Unavailable ALONDRA ., JACQUELINE Admitting Unavailable ALONDRA ., JACQUELINE Attending Unavailable AICHHOLZ, DIAMOND MERCHANT MCKAYLA Primary Care Unavailable AFSANEH Loera, DR BOLANOS Consulting Unavailable MARYANNE POWER Consulting Unavailable GLENN KERR Consulting Unavailable YOMAIRA KERR Consulting Unavailable HATTIE GOFF Consulting Unavailable ALONDRA ., JACQUELINE Consulting Unavailable TICO, STEPHANIE Attending Unavailable TICO, STEPHANIE Consulting Unavailable AICHHOLZ, DIAMOND MERCHANT MCKAYLA Primary Care Unavailable TICO, STEPHANIE Admitting Unavailable REGLA ., DR DUMONT Admitting Unavailable AICHHOLZ, DIAMOND MERCHANT MCKAYLA Primary Care Unavailable REGLA ., DR DUMONT Attending Unavailable ARAUZ ., DR DUMONT Consulting Unavailable COLLIN HUERTAS Consulting Unavailable CECILIA KAUFMAN Admitting Unavailable CECILIA KAUFMAN Attending Unavailable AICHHOLZ, DIAMOND MERCHANT MCKAYLA Primary Care Unavailable COMFORT PRETTY Attending Unavailable COMFORT PRETTY Admitting Unavailable AICHHOLZ, DIAMOND MERCHANT MCKAYLA Primary Care Unavailable AICHHOLZ, DIAMOND MERCHANT MCKAYLA Admitting Unavailable AICHHOLZ, DIAMOND MERCHANT MCKAYLA Primary Care Unavailable AICHHOLZ, DIAMOND MERCHANT MCKAYLA Attending Unavailable AICHHOLZ, DIAMOND MERCHANT MCKAYLA Consulting Unavailable LAKSHMIPATHY ., NARENDRANATH Attending Anette vailable LAKSHMIPATHY ., NARENDRANATH Consulting Anette vailable LAKSHMIPATHY ., NARENDRANATH Admitting Anette vailable AICHHOLZ, DIAMOND MERCHANT MCKAYLA Primary Care Unavailable VALENZUELA ., GIL Consulting Unavailable MORTENSEN ., DR CHAPARRO Aguillon Attending Unavailable MORTENSEN ., DR CHAPARRO Augillon Admitting Unavailable AICHHOLZ, DIAMOND MERCHANT MCKAYLA Primary Care Unavailable VALENZUELA ., GIL Consulting Unavailable MORTENSEN ., DR CHAPARRO Aguillon Admitting Unavailable AICHHOLZ, DIAMOND MERCHANT MCKAYLA Primary Care Unavailable MORTENSEN ., DR CHAPARRO Aguillon Attending Unavailable HALKER ., SUBHASH Consulting Unavailable LAKSHMIPATHY ., NARENDRANATH Admitting Anette vailable LAKSHMIPATHY ., NARENDRANATH Attending Anette vailable AICHHOLZ, DIAMOND MERCHANT MCKAYLA Primary Care Unavailable MORTENSEN ., DR CHAPARRO Aguillon Attending Unavailable MORTENSEN ., DR CHAPARRO Aguillon Admitting Unavailable VALENZUELA ., GIL Consulting Unavailable AICHHOLZ, DIAMOND MERCHANT MCKAYLA Primary Care Unavailable VALENZUELA ., GIL Consulting Unavailable MORTENSEN ., DR CHAPARRO Aguillon Attending Unavailable MORTENSEN ., DR CHAPARRO Aguillon Admitting Unavailable AICHHOLZ, DIAMOND MERCHANT MCKAYLA Primary Care Unavailable HATTIE BRODERICK Attending Unavailable HATTIE BRODERICK Admitting Unavailable AICHHOLZ, DIAMOND MERCHANT MCKAYLA Primary Care Unavailable AICHHOLZ, DIAMOND MERCHANT MCKAYLA Admitting Unavailable AICHHOLZ, DIAMOND MERCHANT MCKAYLA Consulting Unavailable AICHHOLZ, DIAMOND MERCHANT MCKAYLA Primary Care Unavailable AICHHOLZ, DIAMOND MERCHANT MCKAYLA Attending Unavailable AICHHOLZ, DIAMOND MERCHANT MCKAYLA Primary Care Unavailable MISC, DR LESLIE Admitting Unavailable MISC, DR LESLIE Attending Unavailable MISC, DR LESLIE Consulting Unavailable DIAB ., MARIANO Admitting Unavailable DIAB ., AMRIANO Attending Unavailable DIAB ., MARIANO Consulting Unavailable AICHHOLZ, DIAMOND MERCHANT MCKAYLA Primary Care Unavailable RASTEGAR, RICCO Consulting Unavailable AICHHOLZ, DIAMOND MERCHANT MCKAYLA Admitting Unavailable AICHHOLZ, DIAMOND MERCHANT MCKAYLA Primary Care Unavailable AICHHOLZ, DIAMOND MERCHANT MCKAYLA Attending Unavailable AICHHOLZ, DIAMOND MERCHANT MCKAYLA Consulting Unavailable DR PATRICIA VELOZ Consulting Unavailable TAMLYN ., CECILIA Attending Unavailable TAMLYN ., CECLIIA Admitting Unavailable DR PATRICIA VELOZ Consulting Unavailable AICHHOLZ, DIAMOND MERCHANT MCKAYLA Primary Care Unavailable TAMLYN ., CECILIA Consulting Unavailable MORTENSEN ., DR CHAPARRO Aguillon Attending Unavailable FESTUS ., DR CHAPARRO Aguillon Consulting Unavailable FESTUS ., DR CHAPARRO Aguillon Admitting Unavailable AICHHOLZ, DIAMOND MERCHANT MCKAYLA Primary Care Unavailable HATTIE BRODERICK Attending Unavailable HATTIE BRODERICK Consulting Unavailable HATTIE BRODERICK Admitting Unavailable AICHHOLZ, DIAMOND MERCHANT MCKAYLA Primary Care Unavailable HATTIE BAUTISTA Consulting Unavailable AICHHOLZ, DIAMOND MERCHANT MCKAYLA Admitting Unavailable AICHHOLZ, DIAMOND MERCHANT MCKAYLA Attending Unavailable AICHHOLZ, DIAMOND MERCHANT MCKAYLA Consulting Unavailable AICHHOLZ, DIAMOND MERCHANT MCKAYLA Primary Care Unavailable Ty Amin MD Primary Care Provider Ty Amin MD Primary Care Provider Aichholz WEB PRODUCER, Mckayla Unavailable Aichholz WEB PRODUCER, Mckayla Unavailable AICHHOLZ, MCKAYLA Attending Unavailable LIBBY, AHMAD F Attending Unavailable AICHHOLZ, MCKAYLA Attending Unavailable AICHHOLZ, MCKAYLA Attending Unavailable AICHHOLZ, MCKAYLA Attending Unavailable LIBBY, AHMAD F Attending Unavailable AICHHOLZ, MCKAYLA Attending Unavailable LIBBY, AHMAD F Attending Unavailable LIBBY, AHMAD F Referring Unavailable AICHHOLZ, MCKAYLA Attending Unavailable Aichholz WEB PRODUCER, Mckayla Unavailable Aichholz WEB PRODUCER-C, Mckayla J Primary Care Provider Price Arora DO Attending Provider Flynn Urias DPM Attending Provider Aichholz WEB PRODUCER-C, Mckayla J Attending Provider AMI ORO Attending Unavailable DAKOTAH BRIDGES Attending Unavailable Elbert ARAUZ Attending Unavailable GAVIOTA ADAMES Attending Unavailable Ty Amin MD Primary Care Provider Aichholz WEB PRODUCER, Mckayla Unavailable Aichholz WEB PRODUCER, Mckayla Unavailable Ty Amin MD Primary Care Provider Valdez PHIPPS, Corinne Ghosh Attending Unavail able Aichholz COREMAKER FLOOR-DIAMOND MERCHANT, Mckayla Lennon Primary Care Unava ilable Bob COREMAKER FLOOR-DIAMOND MERCHANT, Omero Lovell Consulting Unav ailable Bob COREMAKER FLOOR-DIAMOND MERCHANT, Omero Lovell Attending Unav ailable Adonay DPM, Flynn Arzate Attending Unavailab le Aichholz COREMAKER FLOOR-DIAMOND MERCHANT, Mckayla Lennon Primary Care Unava ilable Bob COREMAKER FLOOR-DIAMOND MERCHANT, Omero Lovell Attending Unav ailable Adonay DPM, Flynn Arzate Attending Unavailab le Adonay DPM, Flynn Arzate Attending Unavailab le Aichholz COREMAKER FLOOR-DIAMOND MERCHANT, Mckayla Lennon Primary Care Unava ilable Adonay DPM, Flynn Arzate Referring Unavailab le Bob COREMAKER FLOOR-DIAMOND MERCHANT, Omero Lovell Attending Unav ailable Allergies Allergy ClassificationReported Allergen(s)Allergy TypeDate of OnsetReaction(s) Facility (1 source)No Known Medication Allergies; Translations: [No Known Medication Allergies]Propensity to adverse reactions (disorder)[facility] Medications Current Medications MedicationDrug Class(es)DatesSig (Normalized)Sig (Original)0.5 ML tirzepatide 30 MG/ML Auto-Injector [Mounjaro] (1 source)Start: 98-78-7564kxadux 15 mg by subcutaneous injection every week Mounjaro 15 mg/0.5 mL subcutaneous solution INJECT 15MG SUBCUTANEOUSLY ONCE A WEEK Start Date: 06/11/24 Status: Orderedacetaminophen 325 mg / HYDROcodone bitartrate 5 mg oral tablet (20 sources)Opioid AgonistStart: 54-01-3562hfjyhouokcqxh-hydrocodone 325 mg-5 mg oral tablet Refill(s) 0 Start Date: 02/06/22 Status: OrderedStart: 12-13-2017 End: 31-95-7914sesg 1 tablet by mouth every four hoursHydrocodone-Acetaminophen (Oxbow) 5-325 mg tablet Discontinued 1 TAB PO Q4H 15 0 December 13, 2017 April 05, 2025 12:52pm Fracture of humerus painStart: 07-97-8046ptiq 1 tablet by mouth every four to six hours as needed for painHYDROcodone-acetaminophen (Oxbow) 5-325 MG tablet 1 tablet 3 (three) times a day as needed for severe pain. Activetake 1 tablet by mouth twice daily as neededNorco 5-325 MG 1 tablet as needed Orally TWICE A DAY Activealbuterol 0.83 mg/ml inhalation solution (20 sources)beta2-Adrenergic AgonistStart: 66-25-5489crxj 2.5 mg by inhalation every four to six hours as neededStart: 84-32-3964eedpqxdcp 0.083% Inh Tracey 3 mL Refill(s) 0 [...] oral tablet (20 sources)Tricyclic AntidepressantStart: 02-06-2022 End: 33-27-8581xsnh 1 tablet by mouth once daily at bedtimeaspirin 81 mg chewable tablet (20 sources)Platelet Aggregation Inhibitor, Nonsteroidal Anti-inflammatory Drug Start: 11-01-2023 End: 46-21-8940cmcb 1 tablet by mouth once dailyaspirin 81 MG chewable tablet Chew 81 mg in the morning. 0 Activebaclofen 10 mg oral tablet (20 sources)gamma-Aminobutyric Acid-ergic AgonistStart: 80-64-3700oklz 1 tablet by mouth every eight hours as neededStart: 57-63-7449bhfi 1 tablet by mouth in the morning, then take 1 tablet by mouth in the evening, then take 1 tablet by mouth at bedtimebaclofen (Lioresal) 10 MG tablet Take 10 mg by mouth in the morning and 10 mg in the evening and 10mg before bedtime. 06/24/2024 Rgitxi94 actuat budesonide 0.16 mg/actuat / formoterol fumarate [...] tablet (20 sources)Histamine-1 Receptor AntagonistStart: 11-01-2023 End: 03-47-8501nkge 1 tablet by mouth once daily as neededtake 1 tablet by mouth in the morningcetirizine (ZyrTEC) 10 MG tablet Take 10 mg by mouth in the morning. 0 Activedapagliflozin 10 mg oral tablet (20 sources)Sodium-Glucose Cotransporter 2 InhibitorStart: 01-17-2024 End: 83-96-5566cuzd 1 tablet by mouth once dailyStart: 08-14-2023 End: 89-41-3144icrl 1 tablet by mouth in the morningdapagliflozin (Farxiga) 10 MG Indications: Type 2 diabetes mellitus with unspecified complications ( CMS/HCC) Take 1 tablet (10 mg) by mouth in the morning. 90 tablet 1 08/14/2023 11/12/2023 Activediclofenac sodium 75 mg delayed release oral tablet (20 sources)Nonsteroidal Anti-inflammatory DrugStart: 73-56-7105ziok 1 tablet by mouth twice daily0.5 ML dulaglutide 9 MG/ML Auto-Injector [Trulicity] (4 sources)GLP-1 Receptor AgonistStart: 93-57-9121Emdxdanqm Pen 4.5 mg/0.5 mL subcutaneous solution Refills(s) [...] sources)Serotonin and Norepinephrine Reuptake InhibitorStart: 11-01-2023 End: 28-46-9082azts 1 capsule by mouth twice dailyStart: 07-23-2023 End: 89-21-6944guof 1 capsule by mouth in the morningDULoxetine (Cymbalta) [address] capsule Indications: Anxiety and depression (CMS/HCC) Take 1 capsule(60 mg) by mouth in the morning and 1 capsule (60 mg) before bedtime. Do not crush or chew.. 60 capsule 3 07/23/2023 08/22/2023 ActiveStart: 86-46-2519IIBvdwjdmx 30 mg Cap-EC Refills(s) 0 Start Date: 02/06/22 Status: OrderedDULoxetine 30 mg Cap-EC (2 sources)Start: 82-40-4621QMGnpxduza 30 mg Cap-EC Refills(s) 0 Start Date: 02/06/22 Status: Orderedergocalciferol 1.25 mg oral capsule (20 sources)Provitamin D2 CompoundStart: 66-72-4298Oixqz: 01-16-2025 End: 28-93-6420zqha 1 capsule by mouth every weekergocalciferol (Vitamin D2) 1.25 MG (67757 UT) capsule Indications: Vitamin D deficiency, unspecified Take 1 capsule (1.25 mg) by mouth 1 (one) time per week 12 capsule 1 01/16/2025 04/10/2025 ActiveStart: 10-27-2024 End: 49-61-9801ooya 1 capsule by mouth two times weeklyergocalciferol (Vitamin D2) 1.25 MG (23595 UT) capsule Indications: Vitamin D deficiency, unspecified Take 1 capsule (1.25 mg) by mouth 2 (two) times a week 24 capsule 1 10/27/2024 01/19/2025 ActiveStart: 04-06-2024 End: 79-63-6505vtsm 1 capsule by mouth every weekergocalciferol (Vitamin D2) 1.25 MG (54021 UT) capsule Indications: Vitamin D deficiency, unspecified TAKE 1 CAPSULE BY MOUTH ONE TIME PER WEEK 12 capsule 1 04/06/2024 10/27/2024 Discontinued (Reorder)fluconazole 150 mg oral tablet (20 sources)Azole AntifungalStart: 08-27-2024 End: 88-74-6692igomctuoofg (Diflucan) 150 MG tablet Indications: Antibiotic- induced yeast infection One time dose,repeat in 3 days . Do not take cholesterol pill while taking this medication. Once finished then resume 2 tablet 1 01/26/2025 ActiveStart: 08-17-2023 End: 39-10-0227xptqkrilzdn (Diflucan) 150 MG tablet Indications: Vaginal yeast infection Take 1 tablet (150 mg) bymouth in the morning for 2 days. One time dose, may repeat in 3 days. 2 tablet 1 08/17/2023 08/19/2023 Active End: 41-10-1995lascrqdtcfz (Diflucan) 150 MG tablet Take 200 mg by mouth in the morning. 0 08/17/2023 Discontinued(Reorder)furosemide 20 mg oral tablet (20 sources)Loop DiureticStart: 09-22-2024 End: 23-73-4069vjcn 1 tablet by mouth once dailyStart: 04-06-2024 End: 81-39-1137nden 1 tablet by mouth once dailyfurosemide (Lasix) 40 MG tablet Indications: Bilateral lower extremity edema Take 1 tablet (40 mg) by mouth Daily 90 tablet 1 04/06/2024 ActiveStart: 12-13-2017 End: 55-25-1744loyr 1 tablet by mouth once daily as [...] oral tablet (20 sources)Arteriolar VasodilatorStart: 09-13-2023 End: 15-29-4641ltfh 1 tablet by mouth twice dailysodium hypochlorite 2.5 mg/ml topical solution (14 sources)Start: 44-00-3024FxAjtq 0.25 % external solution APPLY TO GAUZE [...] with supper. 0 ActiveNovoLog (5 sources)Insulin AnalogStart: 53-34-9137XymaXrm SubCutaneous, TIDAC, Refills(s) 0 Start Date: 02/06/22 Status: OrderedNovoLOG 100 UNIT/ML as directed Injection SLIDING SCALE BEFORE EACH MEAL Active3 ml insulin glargine 100 unt/ml pen injector (20 sources)Insulin AnalogStart: 45-28-1017Fjimp: 75-99-4458fgswfny glargine (Lantus SoloStar) 100 UNIT/ML pen Indications: Type 2 diabetes mellitus with hyperglycemia, with long-term current use of insulin (HCC) INJECT 58 UNITS SUBCUTANEOUSLY TWICE A DAY 105mL 2 02/16/2025 ActiveStart: 01-29-2025 End: 09-71-6572dpotwq 58 [IU] by subcutaneous injection in the morninginsulin glargine (Lantus) 100 UNIT/ML injection Indications: Type 2 diabetes mellitus with hyperglycemia, with long-term current use of insulin (HCC) Inject 58 Units under the skin in the morning and58 Units before bedtime. 104.4 mL 1 01/29/2025 07/28/2025 ActiveStart: 61-22-0384Ixlequ SoloStar 100 UNIT/ML pen 08/26/2024 ActiveStart: 10-30-2023 End: 68-43-0451Avhhvk SoloStar 100 UNIT/ML pen 10/30/2023 04/14/2024 Discontinued (Therapy completed)Start: 21-84-5210Plqpyu Solostar Pen 100 units/mL subcutaneous solution Refills(s) 0 Start Date: 02/06/22 Status: Ordered Start: 12-13-2017 End: 79-21-1242ksevhz 50 [IU] by subcutaneous injection twice dailyInsulin Glargine (Lantus U-100 Insulin) 100 unit/mL Solution Discontinued 50 UNIT SUBCUT Twice daily December 13, 2017 12:00am April 05, 2025 12:53pmLantus SoloStar 100 UNIT/ML as directed Subcutaneous 58 UNITS ONCE A DAY Active3 ml insulin lispro 100 unt/ml pen injector (20 sources)Insulin AnalogStart: 10-06-2023 End: 25-00-1391KcfbDWY KWIKPEN 100 UNIT/ML injection Inject under the skin 10/06/2023 04/14/2024 Discontinued (Therapy completed)Start: 94-95-5773fdzjdy 1 [IU] by subcutaneous injection before mealtimeInsulin [...] lactate 120 mg/ml topical lotion (20 sources)Start: 16-76-2414Rislw: 69-47-4373bweonqcs lactate (Lac-Hydrin) 12 % lotion 07/22/2024 ActiveStart: 92-86-4823zchgovxw lactate (Lac-Hydrin) 12 % lotion APPLY TO BILATERAL FEET EVERY DAY 07/22/2024 Activelisinopril 20 mg oral tablet (20 sources)Angiotensin Converting Enzyme InhibitorStart: 02-06-2022 End: 72-41-5139ldwy 1 tablet by mouth once dailymeloxicam (5 sources)Nonsteroidal Anti-inflammatory DrugStart: 70-21-2580qcgreoazn Daily, Refills(s) 0 Start Date: 02/06/22 Status: Orderedtake 1 tablet by mouth every twenty-four hoursMeloxicam 7.5 MG 1 tablet Orally Once a day ActivemetFORMIN hydrochloride 1000 mg oral tablet (1 source)Biguanidetake 1 tablet by mouth twice daily at mealtimemetFORMIN (GLUCOPHAGE) 1000 MG tablet Take 1,000 mg by mouth 2 times daily (with meals). 0 ActiveMounjaro 10 MG/0.5ML solution pen-injector (4 sources)Start: 10-22-2023 End: 49-41-3732jxbfvk 10 mg by subcutaneous injection every weekMounjaro 10 MG/0.5ML solution pen-injector INJECT 10MG SUBCUTANEOUSLY ONCE A WEEK 10/22/2023 04/14/2024 Discontinued (Therapy completed)Start: 86-41-7059piiamb 10 mg by subcutaneous injection every weekMounjaro 10 MG/0.5ML solution pen-injector INJECT 10MG SUBCUTANEOUSLY ONCE A WEEK 10/22/2023 ActiveMounjaro 15 MG/0.5ML solution auto-injector (8 sources)Start: 91-75-8216Gadctnki 15 MG/0.5ML solution auto-injector Inject 15 mg as directed every 7 (seven) days 02/18/2024 Activenaloxone hydrochloride 40 mg/ml nasal spray (20 sources)Opioid AntagonistStart: 75-51-2816Xyieu: 25-11-5885rozsjrbz (Narcan) 4 mg/0.1 mL nasal spray Administer 4 mg into affected nostril(s) if needed 07/04/2024 Gnclta70 hr nicotine 0.875 mg/hr transdermal system (20 sources)Cholinergic Nicotinic AgonistStart: 07-14-2024 End: 03-78-0457ycujzkab (Nicoderm, Step 1) 21 MG/24HR patch Indications: [...] capsule (20 sources)Proton Pump InhibitorStart: 12-25-2023 End: 19-01-1584gucu 1 capsule by mouth once dailytake 1 capsule by mouth before mealtimeomeprazole (PriLOSEC) [address] capsule Take 20 mg by mouth in the morning. Take before meals. Do not crush or chew. . 0 ActiveOxygen (20 sources)oxygen (O2) gas Inhale 2 L/min continuously via nasal canula Active potassium chloride 10 meq extended release oral tablet (20 sources)Start: 40-80-3201Qbpoc: 02-06-2022 End: 17-04-7415nyyb 1 capsule by mouth once daily in the morningpotassium chloride ER (Micro-K) 10 MEQ ER capsule Indications: Bilateral lower extremity edema Take1 capsule (10 mEq) by mouth Daily Take 1 capsule (10 mEq) by mouth in the morning. 90 capsule 1 01/26/2025 04/26/2025 ActiveStart: 12-13-2017 End: 25-12-5471Fgoyvspfx Chloride (Klor-Con 10) 10 mEq Tablet Extended Release Discontinued 10 MEQ PO Twice daily December 13, 2017 12:00am April 05, 2025 12:56pmtake 1 tablet by mouth every twenty-four hoursPotassium Chloride ER 10 MEQ 1 tablet with food Orally Once a day ActivepredniSONE 10 mg oral tablet (11 sources)Start: 19-30-8918tlnksvRVKX (Deltasone) 10 MG tablet 4 TABS X3 DAYS, 3TABS X3 DAYS, 2 TABS X3 DAYS, 1 TAB X3 DAYS, 1/2 TAB X4 DAYS 12/05/2024 Active pregabalin 150 mg oral capsule (20 sources)Start: 41-48-5980omkr 1 capsule by mouth once dailyStart: 08-13-2024 take 1 capsule by mouth once dailypregabalin (Lyrica) 150 MG capsule Take 150 mg by mouth Daily 08/13/2024 ActiveStart: 19-72-1539Gsfykj Oral, Refills(s) 0 Start Date: 02/06/22 Status: OrderedStart: 12-13-2017 End: 64-56-0734xdil 1 capsule by mouth in the morningpregabalin (Lyrica) 300 MG capsule Indications: Diabetic polyneuropathy associated with type 2 diabetes mellitus (HCC) Take 1 capsule (300 mg) by mouth in the morning and 1 capsule (300 mg) before bedtime. 60 capsule 5 04/14/2024 Activeroflumilast 0.5 mg oral tablet (20 sources)Phosphodiesterase 4 InhibitorStart: 01-04-2024 End: 87-11-7223medu 1 tablet by mouth once dailysimvastatin 10 mg oral tablet (20 sources)HMG-CoA Reductase InhibitorStart: 12-19-2024 End: 58-39-0796ejtj 1 tablet by mouth once daily at bedtimeStart: 04-06-2024 End: 08-20-6687dusw 1 tablet by mouth at bedtimesimvastatin (Zocor) 10 MG tablet Indications: Hyperlipidemia, unspecified (CMS/HCC) Take 1 tablet (10 mg) by mouth at bedtime 90 tablet 1 08/27/2024 ActiveStart: 06-15-2023 End: 57-17-9073qive 1 tablet by mouth in the morningsimvastatin (Zocor) 10 MG tablet Indications: Hyperlipidemia, unspecified (CMS/HCC) Take 1 tablet (10 mg) by mouth in the morning. 90 tablet 1 06/15/2023 09/13/2023 ActiveStart: 12-13-2017 End: 38-38-2060twgf 1 tablet by mouth once daily in the eveningSimvastatin 20 mg Tablet Discontinued 20 MG PO Every evening December 13, 2017 12:00am March 1:00pmsulfamethoxazole 800 mg / trimethoprim 160 mg oral tablet (15 sources)Dihydrofolate Reductase Inhibitor Antibacterial, Sulfonamide AntimicrobialStart: 82-54-2744lzjn 1 tablet by mouth twice daily sulfamethoxazole-trimethoprim (Bactrim DS) 800-160 MG per tablet TAKE 1 TABLET BY MOUTH TWICE A DAYFOR 14 DAYS 01/14/2025 ActiveStart: 08-27-2024 End: 61-52-4000ztpuuqntvsvxdajf-trimethoprim (Bactrim DS) 800-160 MG per tablet 08/27/2024 10/27/2024 Discontinued(Therapy completed)Symbicort 160/4.5 inhalation aerosol with adapter (3 sources)Start: 42-33-2232Yskpffgfi 160/4.5 inhalation aerosol with adapter Refill(s) 0 Start Date: 02/06/22 Status: Apwycmb73 actuat tiotropium 0.0025 mg/actuat inhalation spray (7 sources)AnticholinergicStart: 39-47-2884Ogtgxfn Respimat 60 ACT 2.5 mcg/inh inhalation aerosol Refills(s) 0 Start Date: 02/06/22 Status: Orderedtake 2 puff(s) by inhalation in the morningtiotropium (Spiriva Respimat) 2.5 MCG/ACT inhaler Inhale 2 puffs in the morning. 0 Activetake 2 puff(s) by inhalation twice daily Spiriva Respimat 2.5 MCG/ACT 2 puffs Inhalation TWICE A DAY ActiveTirzepatide (2 sources)Start: 85-13-5832Oudbvvluftf (Mounjaro) 15 MG/0.5ML solution auto-injector (20 sources)Start: 48-06-4879kkcvio 15 mg by subcutaneous injection every week Tirzepatide (Mounjaro) 15 MG/0.5ML solution auto-injector Indications: Type 2 diabetes mellitus with other circulatory complications (HCC) Inject 15 mg under the skin 1 (one) time per week 6 mL 1 02/27/2025 ActiveStart: 98-54-6487psqeod 15 mg by subcutaneous injection every weekTirzepatide (Mounjaro) 15 MG/0.5ML solution auto-injector Indications: Type 2 diabetes mellitus with other circulatory complications (HCC) INJECT 15MG SUBCUTANEOUSLY ONCE A WEEK 6 mL 1 07/07/2024 ActiveStart: 50-84-3136limkpr 15 mg by subcutaneous injection every weekTirzepatide (Mounjaro) 15 MG/0.5ML solution auto-injector Indications: Type 2 diabetes mellitus with other circulatory complications INJECT 15MG SUBCUTANEOUSLY ONCE A WEEK 6 mL 1 07/07/2024 ActiveStart: 03-00-6824mhudkd 15 mg by subcutaneous injection every weekTirzepatide [...] oral tablet (20 sources)Partial Cholinergic Nicotinic AgonistStart: 95-74-8928cfjg 1 tablet by mouth twice dailyStart: 12-19-2024 End: 71-08-7872ltha 1 tablet by mouth in the morningvarenicline (Chantix) 1 MG tablet Indications: Tobacco user , Encounter for smoking cessation counseling TAKE 1 TABLET BY MOUTH IN THE MORNING AND 1 TABLET BEFORE BEDTIME. TAKE WITH FULL GLASS OF WATER. 60 tablet 1 03/09/2025 ActiveStart: 08-27-2024 End: 56-74-1146qnvd 1 tablet by mouth in the morningvarenicline (Chantix) 1 MG tablet Indications: Tobacco user , Encounter for smoking cessation counseling Take 1 tablet (1 mg) by mouth in the morning and 1 tablet (1 mg) before bedtime. Take with full glass of water.. 60 tablet 1 08/27/2024 ActiveStart: 12-05-2023 End: 99-42-0959Xsgdqcfxjih Tartrate, Starter, 0.5 MG X 11 & 1 MG X 42 tablet [facility] 12/05/2023 07/14/2024 Discontinued (Therapy completed)Start: 60-02-2075Kadhlgtklmi Tartrate, Starter, 0.5 MG X 11 & 1 MG X 42 tablet therapy pack [facility] 12/05/2023 Active Completed/Discontinued Medications MedicationDrug Class(es)DatesSig (Normalized)Sig (Original)amoxicillin 875 mg / clavulanate 125 mg oral tablet (6 sources)Penicillin-class AntibacterialStart: 12-05-2024 End: 82-22-1468ijpn 1 tablet by mouth every twelve hoursamoxicillin-clavulanate (Augmentin) 875-125 MG tablet Take 1 tablet by mouth every 12 (twelve) hours 12/05/2024 01/26/2025 Discontinued (Therapy completed)cephalexin 500 mg oral capsule (9 sources)Cephalosporin AntibacterialStart: 2024 End: 89-66-1216iytmhhmtuj (Keflex) 500 MG capsule 2024 10/27/2024 Discontinued (Therapy completed)Glucose Blood (ACCU-CHEK JAQUI PLUS ) (14 sources) End: 47-22-4368Qgpzuro Blood (ACCU-CHEK JAQUI PLUS ) 4 (four) times a day. 07/14/2024 Discontinued (Therapy completed)Glucose Blood (ACCU-CHEK JAQUI PLUS ) 4 (four) times a day. ActiveGlucose Blood (ACCU-CHEK JAQUI PLUS ) 4 (four) times a day. 0 Active3 ml liraglutide 6 mg/ml pen injector (6 sources)GLP-1 Receptor Agonist End: 74-77-0359swcxejizrwr (Victoza) 18 MG/3ML injection Inject under the skin Daily 07/14/2024 Discontinued (Therapy completed)naproxen 500 mg oral tablet (2 sources)Nonsteroidal Anti-inflammatory DrugStart: 12-13-2017 End: 04-80-8749rzds 1 tablet by mouth twice daily at mealtimeNaproxen 500 mg tablet Discontinued 500 MG PO Twice daily 20 0 December 13, 2017 12:00am April 05, 2025 12:53pm administer with food or milknortriptyline 50 mg oral capsule (18 sources)Tricyclic AntidepressantStart: 12-13-2017 End: 56-49-0326vuwi 1 capsule by mouth once daily at bedtimeNortriptyline 50 mg Capsule Discontinued 50 MG PO Daily at bedtime December 13, 2017 12:00am April 05, 2025 12:53pmubrogepant 100 mg oral tablet (12 sources) End: 58-57-4869lfvg 1 tablet by mouth every twenty-four hours as needed Ubrogepant (Ubrelvy) 100 MG tablet Take 100 mg by mouth Daily as needed 07/14/2024 Discontinued (Therapy completed) Problems Active Problems Problem ClassificationProblemDateDocumented DateEpisodic/ChronicAbdominal pain (6 sources)Left flank pain; Translations: [Lower abdominal pain, unspecified] Onset: 936567-42-4970IjejsmguIrptjuqx foot deformities (1 source)Other hammer toe(s) (acquired), right foot; Translations: [OTHER HAMMER TOES ACQUIRED RT FOOT]Onset: 76-88-3607LtkyqbrYsplmanm foot deformities (1 source)Other hammer toe(s) (acquired), left foot; Translations: [OTHER HAMMER TOES ACQUIRED LT FOOT]Onset: 32-48-1722PigtqugKjjegdg disorders (20 sources)Mixed anxiety and depressive disorder; Translations: [Anxiety disorder, unspecified]Onset: 712309-53-0514ZzkyqxfCxnqpd (20 sources)Asthma; Translations: [Unspecified asthma, uncomplicated]Onset: 717949-60-6004HunugzdGqnxsb of cervix (20 sources)Malignant tumor of cervix; Translations: [Malignant neoplasm of cervix uteri, unspecified]Onset: 121662-92-9813KwravmwZzrqsy of cervix (2 sources)History of malignant neoplasm of cervix; Translations: [Personal history of malignant neoplasm of cervix uteri]94-22-0447RjmxbrjjOttvsfz kidney disease (5 sources)Chronic kidney disease; Translations: [Chronic kidney disease, unspecified]Onset: 02-20-2022 Resolved: 12-47-7239SelgnbmSywgycp obstructive pulmonary disease and bronchiectasis (20 sources)Pulmonary emphysema; Translations: [Chronic obstructive pulmonary disease with (acute) exacerbation]Onset: 763700-60-2276KgjwlzsQqlogig ulcer of skin (20 sources)Non-pressure chronic ulcer of other part of right lower leg limited to breakdown of skin; Translations: [Non-pressure chronic ulcer of other part of left lower leg limited to breakdown of skin]Onset: 828013-90-1816Eqnroqf Congestive heart failure; nonhypertensive (20 sources)Chronic diastolic heart failure; Translations: [Chronic diastolic (congestive) heart failure]Onset: 235835-35-8598RedqbbrWvvffehr mellitus with complications (20 sources)Disorder of kidney due to diabetes mellitus; Translations: [Type 2 diabetes mellitus with diabetic chronic kidney disease]Onset: 02-20-2022 Resolved: 62-72-8662GvhnxzrTtbmsjdf mellitus without complication (13 sources)Type 2 diabetes mellitus; Translations: [Type 2 diabetes mellitus without complications]Onset: 284964-93-9467HntujleFeckonmwm of lipid metabolism (20 sources)Pure hypercholesterolemia, unspecified; Translations: [Hyperlipidemia, unspecified]Onset: 393527-42-2471AeqkxaoGwdaztylvd disorders (20 sources)Gastro-esophageal reflux disease without esophagitis; Translations: [Gastroesophageal reflux disease]Onset: 12-05-2022 Resolved: 045736-38-1116SkvkpwoZnzofpbda hypertension (20 sources)Hypertensive disorder; Translations: [Essential (primary) hypertension]Onset: 848649-54-2759QdnfjfmOudsjtltkapsv symptoms and ill- defined conditions (20 sources)Mixed incontinence; Translations: [Incontinence]Onset: 02-06-2022 ChronicGout and other crystal arthropathies (20 sources)Gout; Translations: [Gout, unspecified]Onset: ChronicHypertension with complications and secondary hypertension (5 sources)Chronic kidney disease due to hypertension; Translations: [Hypertensive chronic kidney disease withstage 1 through stage 4 chronic kidney disease, or unspecified chronic kidney disease]Onset: 02-20-2022 Resolved: 95-24-0410FjjerhcWhsl disorders (1 source)Major depressive disorder, single episode, unspecified; Translations: [ANASTACIO DEPRESS D/O SINGLE EPIS UNS]Onset: 73-26-6827LxsukmrBxbglurjsbgaa gastroenteritis (1 source)Noninfective gastroenteritis and colitis, unspecified; Translations: [NONINFECTIVE GE AND COLITIS UNS]Onset: 90-57-9350MvbcxgpgSiterrspmfo deficiencies (20 sources)Vitamin D deficiency; Translations: [Vitamin D deficiency, unspecified]Onset: 515217-01-8812OlzthgwZhmgoasqgpwmcu (20 sources)Arthritis; Translations: [Unspecified osteoarthritis, unspecified site]Onset: 074462-97-2826XlkfnrsDyijw aftercare (1 source)Other salvage determiner (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 therapy; Translations: [OTH JAIL CURRENT DRUG THERAPY]Onset: 34-30-0861PkazgizvFgfuj aftercare (1 source)termite exterminator (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; Translations: [STORAGE GARAGE ATTENDANT CURRENT USE OF ASPIRIN]Onset: 49-03-5194JmgmwbbpBdkbm aftercare (6 sources)Long-term current use of insulin; Translations: [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]94-60-4360UvjorlgtUxqtd and ill-defined heart disease (20 sources)Cardiomegaly; Translations: [Cardiomegaly]Onset: 10-25-2017 56-52-1882OtyuuvmSbafm and ill-defined heart disease (1 source)Cardiomegaly; Translations: [Cardiomegaly]Onset: 26-10-6784Zqhiqef Other and unspecified benign neoplasm (1 source)Benign lipomatous tumor; Translations: [Benign lipomatous neoplasm of other sites]Onset: 85-13-0509MgmsbzakHcndx bone disease and musculoskeletal deformities (1 source)Acquired absence of other left toe(s); Translations: [ACQUIRED ABSENCE OF OTHER LEFT TOES]Onset: 89-32-3061WvdnhbeoWyasc diseases of kidney and ureters (1 source)Urinary tract obstruction; Translations: [Other obstructive and reflux uropathy]Onset: 76-60-1347BjnvfbgrYzdsf diseases of veins and lymphatics (1 source)Chronic venous hypertension (idiopathic) with ulcer and inflammation of bilateral lower extremity; Translations: [CHRN KEO HTN ULCR INFLAM ALEX LW EXT]Onset: 51-42-1598ZztuyviCenuq diseases of veins and lymphatics (1 source)Chronic venous hypertension (idiopathic) with ulcer of left lower extremity; Translations: [CHRON VENOUS HTN W/ULCER LT LW EXT]Onset: 09-01-2022 ChronicOther diseases of veins and lymphatics (1 source)Lymphedema, not elsewhere classified; Translations: [LYMPHEDEMA NOT ELSEWHERE CLASSIFIED]Onset: 55-59-9664NodcmjkXyejj diseases of veins and lymphatics (5 sources)Chronic peripheral venous hypertension with lower extremity complication; Translations: [Chronic venous hypertension (idiopathic) with ulcer of bilateral lower extremity]Onset: 197942-60-9662VfpfhyyIyvvx diseases of veins and lymphatics (20 sources)Chronic peripheral venous hypertension; Translations: [Chronic venous hypertension (idiopathic) with ulcer of bilateral lower extremity]Onset: 939169-67-3542XwwqzsoHtqso diseases of veins and lymphatics (18 sources)Stasis dermatitis and venous ulcer of right lower extremity due to chronic peripheral venous hypertension; Translations: [Chronic venous hypertension (idiopathic) with ulcer and inflammation of rightlower extremity] Onset: 854213-85-5883BxkuyuyKpodz endocrine disorders (2 sources)Disorder of adrenal gland; Translations: [Other specified disorders of adrenal gland]Onset: 95-13-2000AkdyxveMiott endocrine disorders (20 sources)Adrenal mass; Translations: [Disorder of adrenal gland, unspecified] Onset: 501917-53-5613ZsmeaaxJluwe endocrine disorders (2 sources)Disorder of adrenal gland, unspecifiedOnset: 02-20-2022 Resolved: 81-57-8492UsqibucVhtrm endocrine disorders (5 sources)Other specified disorders of adrenal gland; Translations: [OTHER SPEC DISORDERS ADRENAL GLAND]Onset: 49-70-5933IqeacnoWeaog gastrointestinal disorders (3 sources)Adrenal qorr78-18-1950SggbgjfyIkivh lower respiratory disease (1 source)Hypoxemia; Translations: [HYPOXEMIA]Onset: 19-59-6899ScuexauoBatir nervous system disorders (5 sources)Chronic pain syndrome; Translations: [CHRONIC PAIN SYNDROME]Onset: 76-92-3774EoahrcfJrybv nervous system disorders (1 source)Other chronic pain; Translations: [OTHER CHRONIC PAIN]Onset: 21-25-6958NcjkzptYsybo non-traumatic joint disorders (4 sources)Pain in right hip; Translations: [PAIN IN RIGHT HIP]Onset: 04-27-2022 EpisodicOther nutritional; endocrine; and metabolic disorders (2 sources)Localized adiposity; Translations: [Localized adiposity]ChronicOther nutritional; endocrine; and metabolic disorders (20 sources)Body mass index 40+ - severely obese; Translations: [Body mass index (BMI) 50.0-59.9, adult]Onset: 495680-32-9479BwzsktyZmxnt nutritional; endocrine; and metabolic disorders (3 sources)Body mass index (BMI) 50.0-59.9, adult; Translations: [BODY MASS INDEX BMI 50.0-59.9 ADULT]Onset: 66-23-0086FmpakcwOismi nutritional; endocrine; and metabolic disorders (3 sources)Morbid (severe) obesity due to excess calories; Translations: [MORBID SEVERE OBES D/T EXCESS NHI]Onset: 39-96-6829HszynqsGkxnl nutritional; endocrine; and metabolic disorders (1 source)Obesity, unspecified; Translations: [OBESITY UNSPECIFIED]Onset: 68-15-7182XhlerqdClzat nutritional; endocrine; and metabolic disorders (20 sources)Obesity caused by energy imbalance; Translations: [Morbid (severe) obesity due to excess calories]Onset: 153494-68-4637EgzmvifYwoyz screening for suspected conditions (not mental disorders or infectious disease) (1 source)Encounter for screening mammogram for malignant neoplasm of breast; Translations: [ENC SCR MAMMO MALIG NEOPLASM BREAST]Onset: 34-22-0217Lxkfowwt Other skin disorders (2 sources)Bilateral localized swelling of lower legs; Translations: [Localized swelling, mass and lump, lowerlimb, bilateral]47-69-2712QyjdmmjnXzqcb upper respiratory disease (20 sources)Allergic rhinitis; Translations: [Other allergic rhinitis]Onset: 536714-73-6822RyrxamrAmmoqlpvse and visceral atherosclerosis (20 sources)Peripheral vascular disease, unspecified; Translations: [Peripheral vascular disease, unspecified]Onset: 973411-27-3119OfhpbwuJjticdvmg heart disease (20 sources)Pulmonary hypertension; Translations: [Pulmonary hypertension, unspecified]Onset: 409961-90-7274OxpnngyLpkoeshf codes; unclassified (3 sources)Obstructive sleep apnea (adult) (pediatric); Translations: [OBSTRUCTIVE SLEEP APNEA]Onset: 47-36-2276VwzqgvcOvewdvxt codes; unclassified (20 sources)Obstructive sleep apnea syndrome; Translations: [Obstructive sleep apnea (adult) (pediatric)]Onset: 009290-72-7517IqmbymoKpktezwu codes; unclassified (1 source)Acquired absence of other specified parts of digestive tract; Translations: [ACQ ABSENCE OTH PART DIGESTV TRACT]Onset: 39-29-3547Imrubqau Residual codes; unclassified (1 source)Acquired absence of both cervix and uterus; Translations: [ACQUIRED ABSENCE BOTH CERVIX AND UTERUS]Onset: 73-62-5127ZytatschQqndtpvx codes; unclassified (1 source)Family history of malignant neoplasm of ovary; Translations: [FAM HX MALIGNANT NEOPLASM OVARY]Onset: 01-69-4780QrrarbaxBbxndhjj codes; unclassified (1 source)Family history of malignant neoplasm, unspecified; Translations: [FAM HX MALIGNANT NEOPLASM UNS]Onset: 45-81-6157TamjvkstIkoyjephj-related disorders (20 sources)Nicotine dependence; Translations: [Nicotine dependence, unspecified, uncomplicated]Onset: 60-87-5293LmxutbpOeobgsc on above:Added secondary to documentation in Social History.Unclassified (1 source)STORAGE GARAGE ATTENDANT INJECT NONINSULN ANTIDIAB; Translations: [STORAGE GARAGE ATTENDANT INJECT NONINSULN ANTIDIAB]Onset: 47-15-4043Jsivrqhrxqec (3 sources)CONTACT W/AND (SUSP) EXPOS COVID-19; Translations: [CONTACT W/AND (SUSP) EXPOS COVID-19]Onset: 56-50-6378Qhhemupkkjfw (3 sources)LOW BACK PAIN, UNSPECIFIED; Translations: [LOW BACK PAIN, UNSPECIFIED]Onset: 43-26-5784Bffyusnpzjmp (1 source)Obesity, class 3; Translations: [Obesity, class 3]Onset: 11-14-2023 Viral infection (1 source)COVID-19; Translations: [COVID-19]Onset: 09-29-2022 Past or Other Problems Problem ClassificationProblemDateDocumented DateEpisodic/ChronicAcquired foot deformities (1 source)Other deformities of toe(s) (acquired), left foot; Translations: [OTHER DEFORMITIES TOES ACQ LT FOOT]Onset: 71-69-0731Drgdmxdc Administrative/social admission (20 sources)Patient encounter status; Translations: [Dietary counseling and surveillance]Onset: 178702-83-3618PnmjuadtPxcuueor of urinary tract (20 sources)Kidney stone; Translations: [Calculus of kidney]Onset: 02-06-2022 EpisodicE Codes: Natural/environment (1 source)Other and unspecified overexertion or strenuous movements or postures, initial encounter; Translations: [OTH AND UNS OVREXRT/STRN MVMT/POS INT]Onset: 03-42-6137WitlplcvOzmpi of unknown origin (18 sources)Fever; Translations: [Fever, unspecified]Onset: 662382-28-9159 EpisodicGenitourinary symptoms and ill-defined conditions (20 sources)Proteinuria; Translations: [Proteinuria, unspecified]Onset: 02-06-2022 Resolved: 99-76-5937ZkygpbwmJifhkrrv; including migraine (20 sources)Headache; Translations: [Headache disorder]Onset: 01-17-2024 14-63-4521HmtbeblbWnqmnzdthrzcn and screening for infectious disease (20 sources)Encounter for screening for other infectious and parasitic diseases; Translations: [Anti-nuclear factor positive]Onset: 575188-53-9284Nwtjaanh Mood disorders (20 sources)Mood disorders; Translations: [DEPRESSION UNSPECIFIED]Onset: 739902-32-4526Rcqhgmk (20 sources)Tinea unguium; Translations: [Candidiasis of vagina]Onset: 81-18-8384VxdypmzwBvqpsluncex deficiencies (20 sources)Vitamin deficiency; Translations: [Vitamin deficiency, unspecified] Onset: 217202-97-4645OinkesjiGrfwl aftercare (3 sources)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; Translations: [JAIL CURRENT USE OF INSULIN]Onset: 28-01-8366QjtgkwigUfbgl aftercare (20 sources)Long-term current use of inhaled steroid; Translations: [longterm (current) use of inhaled steroids]Onset: 419611-65-2962WrgijwldPktzd and unspecified benign neoplasm (20 sources)Myelolipoma of adrenal gland; Translations: [Benign lipomatous neoplasm of other sites]Onset: 655741-70-2028JdlpmcarOamsp connective tissue disease (4 sources)Other muscle spasm; Translations: [OTHER MUSCLE SPASM]Onset: 63-70-7310OtkldtysYieuw diseases of veins and lymphatics (20 sources)Vascular insufficiency; Translations: [Venous insufficiency (chronic) (peripheral)]Onset: 421183-33-2186IyldwpdyNpxvh diseases of veins and lymphatics (2 sources)Venous insufficiency (chronic) (peripheral); Translations: [Venous insufficiency (chronic) (peripheral)]Onset: 08-39-7766HlouoirnOeari hematologic conditions (1 source)Secondary polycythemiaOnset: 03-08-2022 Resolved: 22-25-3627YxmvysyeTwzpt nervous system disorders (20 sources)Reduced mobility; Translations: [Other abnormalities of gait and mobility]Onset: 334585-76-8417NtsxqhanMvwki non-traumatic joint disorders (1 source)Effusion, left knee; Translations: [EFFUSION LEFT KNEE]Onset: 42-15-1638GdddyzerEncsx non-traumatic joint disorders (1 source)Pain in left knee; Translations: [PAIN IN LEFT KNEE]Onset: 07-26-2022 EpisodicOther non-traumatic joint disorders (20 sources)Pain in right knee; Translations: [Pain in joint, lower leg]Onset: 548447-89-4846CeinfmzsNjqpx nutritional; endocrine; and metabolic disorders (20 sources)Severe obesity; Translations: [Morbid (severe) obesity due to excess calories]Onset: 07-10-2023 Resolved: 384163-10-4054MpyjuiaCmnma nutritional; endocrine; and metabolic disorders (20 sources)Excess panniculus of abdomen; Translations: [Localized adiposity] Onset: 10-25-2017 Resolved: 353936-00-0297IhfhtoaOuxsj skin disorders (1 source)Nail dystrophy; Translations: [NAIL DYSTROPHY]Onset: 09-01-2022 EpisodicOther skin disorders (1 source)Corns and callosities; Translations: [CORNS AND CALLOSITIES]Onset: 19-57-5305DfwjvsgsQejot skin disorders (1 source)Xerosis cutis; Translations: [XEROSIS CUTIS]Onset: 10-27-5009Hbacnjsv Other skin disorders (20 sources)Hyperpigmentation of skin; Translations: [Disorder of pigmentation, unspecified]Onset: 494265-54-7118SxhwirzfBkwgfx media and related conditions (20 sources)Acute suppurative otitis media without spontaneous rupture of ear drum; Translations: [Acute suppurative otitis media without spontaneous rupture of ear drum, left ear]Onset: 01-17-2024 Resolved: 332066-94-7147AinzilqtYfgaxjttah disorders (not diabetes) (20 sources)Acute pancreatitis without necrosis or infection, unspecified; Translations: [Pancreatitis]Onset: 254433-71-7359RrfyfunwNucqxnnau (except that caused by tuberculosis or sexually transmitted disease) (20 sources)Pneumonia; Translations: [Pneumonia, unspecified organism]Onset: 09-17-2023 Resolved: 699188-60-9708BlscjeujLifaklvw codes; unclassified (3 sources)Localized edema; Translations: [LOCALIZED EDEMA]Onset: 09-01-2022 EpisodicResidual codes; unclassified (20 sources)Edema; Translations: [Edema, unspecified]Onset: 07-10-2023 Resolved: 899901-25-6468PkjvmhurDecrgxyr codes; unclassified (20 sources)Bilateral lower limb edema; Translations: [Localized edema]Onset: 868003-05-1852PoixrdvhZfuxuqsl codes; unclassified (20 sources)Insomnia; Translations: [Insomnia, unspecified]Onset: 09-17-2023 49-18-1830BziravhoFtulmuqm codes; unclassified (20 sources)Tobacco user; Translations: [Tobacco use]Onset: 09-17-2023 Resolved: 020262-37-8697JipgzfldZrtuuwki codes; unclassified (20 sources)Edema of lower extremity; Translations: [Localized edema]Onset: 09-17-2023 Resolved: 608263-73-9476HpapniozMqjw and subcutaneous tissue infections (20 sources)Cellulitis of right lower limb; Translations: [Cutaneous abscess of left axilla]Onset: 72-97-7642PhbfqfrzYtlbmqrbnbp; intervertebral disc disorders; other back problems (20 sources)Lumbar radiculopathy; Translations: [Radiculopathy, lumbar region] Onset: 882564-74-4919LlgonvrkGohognz and strains (1 source)Strain of muscle, fascia and tendon of lower back, initial encounter; Translations: [STRAIN MUSC FASC TENDON LW BACK INT]Onset: 13-47-3090Wblexgtr Unclassified (1 source)CONTACT W/AND (SUSP) EXPOS COVID-19; Translations: [CONTACT W/AND (SUSP) EXPOS COVID-19]Onset: 29-22-5965Fjgqtulhukxi (1 source)LOW BACK PAIN, UNSPECIFIED; Translations: [LOW BACK PAIN, UNSPECIFIED] Onset: 57-28-5397Mzdwwiitfzvx (4 sources)Patient encounter hlueht27-00-3670Dbxoyxexlxsy (1 source)Obesity, class 3; Translations: [Obesity, class 3]Onset: 08-08-2024 Varicose veins of lower extremity (20 sources)Varicose veins of right lower extremity with ulcer of unspecified site; Translations: [Varicose veins of lower extremities with ulcer]Onset: 06-19-2024 Resolved: 650446-83-3628Mmhhvioz Results Test NameValueInterpretationReference RangeFacilityReminderson 04-28-2025 RemindersReminders From: [...] ) Other: PROVIDER RELATED REMINDER:_ ( ) Career Representative ( ) Call Pharmacy ( ) Call [...] unable to leave a message at this time.[facility] Noteon 29-35-8645Khopyjmb Office/Clinic NoteChief Complaint Leg ulcer History of Present Illness Mitzi was referred by her world history teacher for evaluation of PVD. She has had ulcers in the bilateral lower extremities above the ankle for about a year. She has been seen by wound care in [facility]. They are applying compression with [...] signed by Corinne Kellogg MD 04/23/25 11:56 [facility] Ankle Brachial Indiceson [id number] Ankle Brachial IndicesPreliminary Technologist Report Ankle/brachial index study was performed. Please see below for information. Beef Cattle Specialist: Zayra Ag, RVS Radiologist Report BILATERAL [...] please contact our Vascular Rehabilitation Department at [phone]. Final Signed by: Jose F Casanova MD Signed (Electronic Signature): 04.17.2025 3:28 pm Transcribed by: Jose F Casanova MD Transcribed DT/TM: 04.17.2025 3:12 (If Report is Signed, Electronically Signed in Other Vendor System)Normal [facility] HospitalBasophils Auto (Bld) [#/Vol]Ordered By: Flynn Urias on 16-60-9369Ebrnritmn (Bld) [#/Vol]0.1 10 3/uL0.0-0.1FUK HealthcareBasophils/100 WBC Auto (Bld)Ordered By: Flynn Urias on 15-40-7299Nhwaruriv/100 WBC (Bld)0.6 %0.2-2.0[facility] Eosinophils/100 WBC Auto (Bld)Ordered By: Flynn Urias on 03-26-2025 Eosinophils/100 WBC (Bld)2.7 %0.9-7.0[facility] Erythrocyte distribution width Auto (RBC) [Ratio]Ordered By: Flynn Urias on 15-34-1232Ujechzfcnmy distribution width (RBC) [Ratio]16.4 %High11.0-15.0 [facility] SouthGlomerular filtration rate (GFR) estimation in non- AmericanOrdered By: Flynn Urias on 14-09-9228RJS/1.73 sq M.predicted among non-blacks MDRD (S/P/Bld) [Vol rate/Area]mL/min/{1.73_m2}>=60 mL/min/1.73m 2FUK HealthcareHematocrit Auto (Bld) [Volume fraction]Ordered By: Flynn Urias on 70-13-1532Vbhilsymsu (Bld) [Volume fraction]52.5 %High36.0-48.0[facility] SouthHemoglobin [Mass/volume] in BloodOrdered By: Flynn Urias on 25-21-8542Xbtvsiwzlr (Bld) [Mass/Vol]16.1 g/lQMuoz26.0-16.0[facility]Laboratory - Chemistry and Chemistry - challengeOrdered By: Flynn Urias on 03-26-2025 Albumin [Mass/Vol]2.8 g/dLLow3.4-5.0[facility] SouthCalcium [Mass/Vol]8.6 mg/dL8.5-10.1FUK HealthcareChloride [Moles/Vol] 105 mmol/X32-384GjhgsoipfSelect Medical Specialty Hospital - [facility] SouthCO2 [Moles/Vol]31.5 mmol/L 21.0-32.0[facility] SouthCreatinine [Mass/Vol]0.69 mg/dL 0.55-1.02[facility] SouthGFR/1.73 sq M.predicted MDRD (S/P/Bld) [Vol rate/Area]mL/min/{1.73_m2}>=60 mL/min/1.73m 2FUK HealthcareGlucose [Mass/Vol]147 mg/lJPgsc90-499PqfegpogaSelect Medical [facility]ty [facility] Potassium [Moles/Vol]4.2 mmol/L3.5-5.1FDayton VA Medical Centerodium [Moles/Vol]141 mmol/Z015-607LiweuijvnSelect Medical Specialty Hospital - [facility] SouthUrea nitrogen [Mass/Vol]15.0 mg/dL7.0-18.0[facility] SouthUrea nitrogen/Creatinine [Mass ratio]21.7 mg/mgSelect [facility]ty [facility] Laboratory - Hematology and Cell countsOrdered By: Flynn Urias on 03-26-2025 ESR (Bld) [Velocity]48 mm/hHigh<=30[facility] SouthImmature granulocytes/100 WBC (Bld)0.3 %0.0-0.5[facility] Leukocytes [#/volume] corrected for nucleated erythrocytes in Blood by Automated counOrdered By: Flynn Urias on 89-48-2914PRX corrected for nucl RBC Auto (Bld) [#/Vol]10.0 10 3/uL4.0-11.0[facility] SouthLymphocytes Auto (Bld) [#/Vol]Ordered By: Flynn Urias on 99-59-9963Gknhguuafgm (Bld) [#/Vol]2.7 10 3/uL1.2-3.8[facility] SouthLymphocytes/100 WBC Auto (Bld)Ordered By: Flynn Urias on 65-72-6051Mblwmafyuvy/100 WBC (Bld)27.2 % 20.5-60.0[facility] SouthMCH Auto (RBC) [Entitic mass]Ordered By: Flynn Urias on 71-96-7455WQX (RBC) [Entitic mass]27.2 pg26.7-34.0[facility] SouthMCHC Auto (RBC) [Mass/Vol]Ordered By: Flynn Urias on 89-73-0720GDCV (RBC) [Mass/Vol]30.7 g/dL29.9-35.2FUK HealthcareMCV Auto (RBC) [Entitic vol]Ordered By: Flynn Urias on 34-15-7194ZRF (RBC) [Entitic vol]88.7 fL81.0-99.0[facility] SouthMonocytes Auto (Bld) [#/Vol]Ordered By: Flynn Urias on 21-36-0055Dueecliev (Bld) [#/Vol] 0.5 10 3/uL0.3-0.8[facility] SouthMonocytes/100 WBC Auto (Bld) Ordered By: Flynn Urias on 70-38-1887Zhyqohidi/100 WBC (Bld)5.2 %1.7-12.0 [facility] SouthNeutrophils Auto (Bld) [#/Vol]Ordered By: Flynn Urias on 03-04-8980Zklivqelgnh (Bld) [#/Vol]6.4 10 3/uL1.4-6.5FUK HealthcareNeutrophils/100 WBC Auto (Bld)Ordered By: Flynn Urias on 30-61-2500Amxvmafgcsk/100 WBC (Bld)64.0 %43.0-75.0[facility] SouthNo Panel InformationOrdered By: Flynn Urias on 00-66-1181Y-Reactive Protein, Quantitative3.94 mg/dLHigh<=0.50[facility] Eosinophils # (Auto)0.3 10 3/uL0.0-0.7FUK HealthcareImmature Granulocyte # (Auto)0.03 10 3/uL0.00-0.03[facility] Phosphorus Level3.5 mg/dL2.6-4.7FUK HealthcarePlatelet mean volume Auto (Bld) [Entitic vol]Ordered By: Flynn Urias on 92-08-1599Cschpjln mean volume (Bld) [Entitic vol]12.8 fL9.5-13.5[facility] Platelets Auto (Bld) [#/Vol]Ordered By: Flynn Urias on 02-04-4238Xyjeruebt (Bld) [#/Vol]146 10 3/aDUdx210-990MmydzvmfxSelect Medical Specialty Hospital [facility] SouthRBC Auto (Bld) [#/Vol]Ordered By: Flynn Urias on 89-29-4716GKU (Bld) [#/Vol]5.92 10 6/uLHigh4.20-5.40[facility] Shriners Hospitalerum or plasma anion gap determinationOrdered By: Flynn Urias on 24-58-3116Anupp gap [Moles/Vol]8.7 mmol/LFUK HealthcareBasophils Auto (Bld) [#/Vol]Ordered By: Price Arora on 94-64-5066Yvcybyiby (Bld) [#/Vol]0.1 10 3/uL0.0-0.1FUK HealthcareBasophils/100 WBC Auto (Bld)Ordered By: Price Arora on 99-62-2896Quapueheq/100 WBC (Bld)0.4 %0.2-2.0[facility] Eosinophils/100 WBC Auto (Bld)Ordered By: Price Arora on 03-25-2025 Eosinophils/100 WBC (Bld)2.4 %0.9-7.0[facility] Erythrocyte distribution width Auto (RBC) [Ratio]Ordered By: Price Arora on 46-06-2371Izqnxfmcoei distribution width (RBC) [Ratio]16.4 %High11.0-15.0 [facility] SouthGlomerular filtration rate (GFR) estimation in non- AmericanOrdered By: Price Arora on 91-49-2164XJA/1.73 sq M.predicted among non-blacks MDRD (S/P/Bld) [Vol rate/Area]mL/min/{1.73_m2}>=60 mL/min/1.73m 2FUK HealthcareHematocrit Auto (Bld) [Volume fraction]Ordered By: Price Arora on 05-08-7750Lwqoausyuj (Bld) [Volume fraction]56.6 %High36.0-48.0[facility] SouthHemoglobin [Mass/volume] in BloodOrdered By: Price Arora on 80-82-2997Tsrzmquaro (Bld) [Mass/Vol]17.4 g/oLJfdx21.0-16.0[facility]Laboratory - Chemistry and Chemistry - challengeOrdered By: Price Arora on 03-25-2025 Bilirubin Ql (U)NegativeNEGATIVESelect Medical Specialty Hospital [facility] SouthGlucose (U) [Mass/Vol]NegativeNEGATIVESelect Medical Specialty Hospital [facility] SouthKetones Ql (U) NegativeNEGATIVESelect Medical Specialty Hospital [facility] SouthpH (U)8.0 [pH]5.0-9.0[facility] Shriners Hospitalpecific gravity (U) [Rel density]1.0201.005-1.025 [facility] SouthUrobilinogen Qn (U)1.0 {Little'U}/dL0.2-1.0 [facility] SouthCalcium [Mass/Vol]9.2 mg/dL8.5-10.1FUK HealthcareChloride [Moles/Vol]106 mmol/D03-272BqzoxqmtnSelect Medical Specialty Hospital [facility] SouthCO2 [Moles/Vol]36.9 mmol/LHigh21.0-32.0[facility] SouthCreatinine [Mass/Vol]0.86 mg/dL0.55-1.02[facility] GFR/1.73 sq M.predicted MDRD (S/P/Bld) [Vol rate/Area]mL/min/{1.73_m2}>=60 mL/min/1.73m 2FUK HealthcareGlucose [Mass/Vol]164 mg/dLHigh 74-106[facility] SouthPotassium [Moles/Vol]4.0 mmol/L3.5-5.1 [facility] Hospitalodium [Moles/Vol]144 mmol/K531-506HgwrynwecSelect Medical Specialty Hospital [facility] SouthUrea nitrogen [Mass/Vol]14.0 mg/dL7.0-18.0[facility] SouthUrea nitrogen/Creatinine [Mass ratio]16.3 mg/mgSelect Medical Specialty Hospital [facility] SouthLaboratory - Hematology and Cell countsOrdered By: Price Arora on 14-57-5960Uykdglda granulocytes/100 WBC (Bld)0.3 %0.0-0.5 [facility] SouthLaboratory - Specimen informationOrdered By: Price Arora on 15-81-5570Uxkfcopxrk (U)CLEARCLEARFUK HealthcareColor (U)LT. YELLOWYELLOWSelect Medical Specialty Hospital - [facility] SouthLaboratory - UrinalysisOrdered By: Price Arora on 67-15-9136Tbsxzea casts LM Ql (Urine sed) RARESelect Medical Specialty Hospital - [facility] SouthLeukocyte esterase Test strip Ql (U) NegativeNEGATIVESelect Medical Specialty Hospital [facility] SouthMucus Ql (Urine sed)TRACE AbnormalNONE SEENSelect Medical Specialty Hospital [facility] SouthNitrite Ql (U)NegativeNEGATIVE [facility] SouthProtein Ql (U)100 mg/dLAbnormalNEG/TRACE [facility] SouthLeukocytes [#/volume] corrected for nucleated erythrocytes in Blood by Automated counOrdered By: Price Arora on 03-25-2025 WBC corrected for nucl RBC Auto (Bld) [#/Vol]11.8 10 3/uLHigh4.0-11.0[facility] SouthLymphocytes Auto (Bld) [#/Vol]Ordered By: Price Arora on 29-41-6161Qgdjybsmskb (Bld) [#/Vol]3.1 10 3/uL1.2-3.8[facility] SouthLymphocytes/100 WBC Auto (Bld)Ordered By: Price Arora on 70-32-3050Nxbzgilkbdx/100 WBC (Bld)26.4 %20.5-60.0[facility] Auto (RBC) [Entitic mass]Ordered By: Price Arora on 07-26-6489UQQ (RBC) [Entitic mass]27.5 pg26.7-34.0[facility] HospitalHC Auto (RBC) [Mass/Vol]Ordered By: Price Arora on 34-88-9502POML (RBC) [Mass/Vol]30.7 g/dL29.9-35.2[facility] Medical CenterMCV Auto (RBC) [Entitic vol] Ordered By: Price Arora on 67-83-5664SCV (RBC) [Entitic vol]89.4 fL81.0-99.0 [facility] SouthMonocytes Auto (Bld) [#/Vol]Ordered By: Price Arora on 85-16-5604Rpwbbrwpw (Bld) [#/Vol]0.6 10 3/uL0.3-0.8[facility] SouthMonocytes/100 WBC Auto (Bld)Ordered By: Price Arora on 32-58-6871Viqmytfvb/100 WBC (Bld)5.2 %1.7-12.0[facility] Neutrophils Auto (Bld) [#/Vol]Ordered By: Price Arora on 88-48-2178Vdapzgbydzl (Bld) [#/Vol]7.7 10 3/uLHigh1.4-6.5[facility] Neutrophils/100 WBC Auto (Bld)Ordered By: Price Arora on 03-25-2025 Neutrophils/100 WBC (Bld)65.3 %43.0-75.0[facility] SouthNo Panel InformationOrdered By: Price Arora on 30-55-2659Ryrto BacteriaTRACE #/HPFAbnormalNONE [facility] HealthUrine Culture ReflexedNO [facility] SouthUrine Occult BloodNegativeNEGATIVESelect Medical Specialty Hospital [facility] SouthUrine Other CastsSEEN #/LPFAbnormalNONE [facility] HealthUrine Other CrystalsNone Seen #/HPFNone [facility]stownUrine RBC0-2 #/HPF0-2[facility] Urine Squamous Epithelial CellsFEW #/LPFAbnormalNONE/RARESelect Medical Specialty Hospital - [facility] SouthUrine WBC0-2 #/HPFAbnormalNONE [facility] HealthEosinophils # (Auto)0.3 10 3/uL0.0-0.7[facility] Immature Granulocyte # (Auto)0.04 10 3/uLHigh0.00-0.03[facility] SouthPlatelet mean volume Auto (Bld) [Entitic vol]Ordered By: Price Arora on 92-77-6774Acqqmady mean volume (Bld) [Entitic vol]12.4 fL9.5-13.5FUK HealthcarePlatelets Auto (Bld) [#/Vol]Ordered By: Price Arora on 98-34-4507Oestwdhpi (Bld) [#/Vol]160 10 3/lG646-224QqbyfodooSelect Medical Specialty Hospital - [facility] SouthRBC Auto (Bld) [#/Vol]Ordered By: Price Arora on 15-29-6196XZJ (Bld) [#/Vol]6.33 10 6/uLHigh4.20-5.40[facility]riners Hospitalerum or plasma anion gap determinationOrdered By: Price Arora on 78-35-1142Bzdci gap [Moles/Vol]5.1 mmol/LFUK HealthcareVascular Office/Clinic Noteon 58-49-1006Mwliircs Office/Clinic NoteChief Complaint lle wound History of [...] She has had testing done at [facility] last year which she brought with [...] Electronically signed by Omero Santana 03/23/25 12:01 [facility] HospitalPodiatry Office/Clinic Noteon 79-47-5360Ytdmbxla Office/Clinic NoteThe content of this note was [...] wraps (gauze, tila bandage, Coban II, tuba area intelligence technician), Dakins solution, a 40-daycourse of antibiotics, and [...] other blood thinners. The patient resides in [place]. Review of Systems Constitutional: Negative for signs [...] their lower extremities Positi (more content not included)...NormalThe Christ HospitalComment on above:Order Comment: Missing Attachment [id number] Can be viewed in source systemXR Tibia/Fibula Righton 44-74-2816PY Tibia/Fibula Right2 views right tib- fib demonstrate: [...] Signed, Electronically Signed in Other Vendor System)Normal The Christ HospitalResults Follow-Upon 16-69-9805Cphgvxr Follow-Up [id number] Mitzi Macias 1970 F Date Provider Department Center 02/04/2025 166-AMI ORO CARDIOLOGY None Family History Problem Relation Age of Onset Heart attack Paternal Grandmother Family Status - Relation Status Age at Mother Father Paternal GrandmotherNMcCullough-Hyde Memorial HospitalOrders Onlyon 47-61-7214Xwkhij [id number] Mitzi Macias 1970 F Date Provider Department Center 01/30/2025 [id number], [facility] Family History Problem Relation Age of Onset Heart attack Paternal Grandmother Family Status - Relation Status Age at Mother Father Paternal GrandmoSelect Medical Specialty Hospital - [facility] SouthCA ECHO DOPPLER COMPLETEon 60-12-1151WyySaunemin, [place] [address] Cardiology Report Signed Patient: MITZI MACIAS MR#: [id number] : 1970 Acct:[id number] Age/Sex: 54 / F ADM Date: 01/29/25 Loc: CARD Attending Dr: AMI ORO APRN Ordering Physician: AMI ORO APRN Date of Service: 01/29/25 Procedure(s): CA echo doppler complete Accession Number(s): [id number] cc: Mckayla Blas WEB PRODUCER; AMI ORO APRN Patient Name: MITZI MACIAS MR#: [id number] : 1970 Exam Date: 01/29/2025 Ordering Doctor: AMI ORO DIAMOND MERCHANT ECHOCARDIOGRAM REPORT PROCEDURE: CA ECHO DOPPLER COMPLETE [...] HERRERA Signed By: 01/29/251839 DD/ 39 TD/TT: Jeep Mechanic:SONNYHRadiology, Radiologist, - 01/29/2025 [place] [address] Cardiology Report Signed Patient: MITZI MACIAS MR#: [id number] : 1970 Acct:[id number] Age/Sex: 54 / F ADM Date: 01/29/25 Loc: CARD Attending Dr: AMI ORO APRN Ordering Physician: AMI ORO APRN Date of Service: 01/29/25 Procedure(s): CA echo doppler complete Accession Number(s): [id number] cc: Mckayla Blas WEB PRODUCER; AMI ORO APRN Patient Name: MITZI MACIAS MR#: [id number] : 1970 Exam Date: 01/29/2025 Ordering Doctor: [...] HERRERA Signed By: 01/29/251839 DD/ 39 TD/TT: Jeep Mechanic: CARLOS HealthcareRadiology Study observation (narrative)[facility] ECHO DOPPLER COMPLETEOrdered By: Radiologist Radiology on 69-74-1147QROO Healthcare Work Phone: Glucose (Bld) [Mass/Vol]on 86-42-1472Fkovogy Blood, MRM144 mg/dLNOAR HealthcareLaboratory - Hematology and Cell countson 01-29-2025 HbA1c (Bld) [Mass fraction]8.4 %NOMS HealthcareNo Panel Informationon 01-29-2025 Interpretation and review of laboratory resultsAbnormalNOMS HealthcareNOMS HealthcareOffice Visiton 44-42-9299Msigib-up [id number] Mitzi Macias 1970 F Date Provider Department Center 01/06/2025 AMI SARABIA CARD [place] [facility] Family History Problem Relation Age of Onset Heart attack Paternal Grandmother Family Status - Relation Status Age at Mother Father Paternal Grandmother Level of Service:85635 [place] OFFICE/OUTPATIENT ESTABLISHED MOD MDM 30 MIN Reason for Visit and Comments: Congestive Heart Failure [127] Hypertension [625206] Hyperlipidemia [182]NormalCherrington Hospital36on Regarding lab results from 10/08/2024: MD Mickie Merritt MA Lipids, ALT AST, and BMP are normal. HbA1c was not performed. Continue current management. LM on patient's VM.NormalCherrington HospitalGlucose (Bld) [Mass/Vol]Ordered By: Mica Sauceda on 29-03-2026Vgbmoqr Blood, POC97 mg/dLNOAR HealthcareLaboratory - Hematology and Cell countson 76-07-0403VpT4f (Bld) [Mass fraction]7.4 %NOMS HealthcareNo Panel InformationOrdered By: Mica Sauceda on 71-82-0085LAYZ HealthcareTBH UA (CLEAN/CATCH) MICROSCOPIC IF INDICATEon 30-29-8164UGPXHYWXK URINENegativeNEGATIVENOMS HealthcareBLOOD URINENegative NEGATIVENOMS HealthcareClarity (U)CLEARCLEARNOMS HealthcareColor (U)YELLOWYELLOW NOMS HealthcareGLUCOSE URINE UANegativeNEGATIVE mg/dLNOMS Healthcare Interpretation and review of laboratory resultsAbnormalNOMS HealthcareKetones Ql (U)NegativeNEGATIVE mg/dLNOMS HealthcareLeukocyte esterase Test strip Ql (U) NegativeNEGATIVENOMS HealthcareNITRITE URINENegativeNEGATIVENOMS HealthcarepH (U)5.5 [pH]5.0 - 9.0NOMS HealthcareProtein (U) [Mass/Vol]30 mg/dLAbnormal NEG/TRACENOMS HealthcareSPECIFIC GRAVITY URINE>=1.773Ifuumgxu7.005 - 1.025NOAR HealthcareURINE MICROSCOPIC INDICATEDYESNOAR HealthcareUROBILINOGEN URINE1.0 EU/dL0.2 - 1.0 EU/dLNOAR HealthcareCLINISYNCNOMS HealthcareALL CBC WITH AUTO DIFFon 53-27-4792JGMDNOWJO ABSOLUTE AUTO0.1NOMS HealthcareBasophils/100 WBC (Bld)0.5 %0.2 - 2.0 %NOMS HealthcareEosinophils/100 WBC (Bld)1.9 %0.9 - 7.0 % NOMS HealthcareErythrocyte distribution width (RBC) [Ratio]14.6 %11.0 - 15.0 % NOM HealthcareHematocrit (Bld) [Volume fraction]50.9 %High36.0 - 48.0 %NOM HealthcareHemoglobin (Bld) [Mass/Vol]16.1 g/gPLodk09.0 - 16.0 g/dLGolden Valley Memorial HospitalIMMATURE GRANULOCYTES ABS AUTO0.04HighNOPhelps HealthImmature granulocytes/100 WBC (Bld)0.3 %0.0 - 0.5 %[facility] HealthcareInterpretation and review of laboratory resultsAbnormalNOAR HealthcareLYMPHOCYTES ABSOLUTE AUTO3.2 NOMSsm Saint Mary'S Health CenterLymphocytes/100 WBC (Bld)25.1 %20.5 - 60.0 %[facility] HospitalH (RBC) [Entitic mass]29.2 pg26.7 - 34.0 pgNOCooper County Memorial HospitalHC (RBC) [Mass/Vol] 31.6 g/dL29.9 - 35.2 g/dLPutnam County Memorial HospitalV (RBC) [Entitic vol]92.2 fL81.0 - 99.0 fLGolden Valley Memorial HospitalMONOCYTES ABSOLUTE AUTO0.7NOAR HealthcareMonocytes/100 WBC (Bld)5.2 %1.7 - 12.0 %NOM HealthcareNEUTROPHILS ABSOLUTE AUTO8.6HighGolden Valley Memorial HospitalNeutrophils/100 WBC (Bld)67 %43.0 - 75.0 %[facility] HospitalPlatelet mean volume (Bld) [Entitic vol]12.8 fL9.5 - 13.5 fLGolden Valley Memorial HospitalTBH EO #0.2NOMS HealthcareVAL[facility] JKS342FyaINOOFreeman [facility]os[facility] RBC5.52HighNOAR HealthcareVALLEY SPRINGS [facility]IORAL [facility] WBC12.8 Forbes HospitalCLINISYNCNOMS HealthcareOffice Visiton 33-23-7675Wkxgzy-up [id number] Mitzi Macias 1970 F Date Provider Department Center 08/08/2024 33307-TECUOZDAKOTAH BRIDGES [facility] Family History Problem Relation Age of Onset Heart attack Paternal Grandmother Family Status - Relation Status Age at Paternal Grandmother Level of Service:84066 [place] OFFICE/OUTPATIENT ESTABLISHED MOD MDM 30 MIN Reason for Visit and Comments: Congestive Heart Failure [127] - Denies chest pain, SOB, and palpitations. Hypertension [797234] Hyperlipidemia [182] LVH [Other] Edema [[id number]] - Denies worsening edema. She sees wound care for RLE ulcer. She was seeing the vein specialists here in town but they are moving to [place] in a few weeks.NormalCherrington HospitalProvider Letteron 85-26-2576Xwcklvbf LetterProvider Letter June 11, 2024 [address] [place] [id number] : 1970 To Whom It May Concern, Please excuse above patient from work. Date of Illness: From: 06/11/24 8:30am To: 06/11/24 12:30pm Comments: _Brian Macias was with his for her doctor's appointment. Sincerely, Andra Forrester, Surgical SchedulerNormLima City HospitalUrology Office/Clinic Noteon 84-20-4753Mdqtpul Office/Clinic NoteUrology Office/Clinic Note Chief Complaint 18 mth HPI Staff 53 yo here 18 month f/u CT for adrenal mass. CT SCAN 05/12/24-[facility] Previous DX: adrenal mass, kidney stone, [...] [facility] [address], [place] [address]- Additional Instructions: [address] AP [...] TIDAC potassium chloride 10 (more content not included)...Bellevue HospitalComment on above:Result Comment: Electronically Signed By: Elbert ARAUZ MD\.br\Date and Time Signed: 06/11/24 10:55 EST\.br\Electronically Co- Signed By: Maria Elena Negrete\.br\Date and Time Co-Signed: 06/11/24 10:53 EST Glucose (Bld) [Mass/Vol]Ordered By: Mica Sauceda on 14-58-7196Qsjtaoc Blood, WOU796 mg/dLNOAR HealthcareLaboratory - Hematology and Cell countson 05-27-2024 HbA1c (Bld) [Mass fraction]9.2 %[facility] HealthcareNo Panel InformationOrdered By: Mica Sauceda on 85-50-2906WAPU HealthcareCT ABDOMEN PELVIS W CONon 05-12-2024 [place] [address] CT Scan Report Signed Patient: MITZI MACIAS MR#: [id number] : 1970 Acct:[id number] Age/Sex: 53 / F ADM Date: 05/12/24 Loc: CT Attending Dr: Gaviota MAYERS Ordering Physician: Gaviota Adames Date of Service: 05/12/24 Procedure(s): CT abdomen pelvis w con Accession Number(s): [id number] cc: Mckayla Blas NP [place] [id number] Patient Name: MITZI MACIAS MRN: [id number]:[id number] date: 1970 Sex: F Assigned Patient Location: CT Current Patient Location: Accession/Order Number: [id number] Exam Date: 05/12/2024 11:15 Report Date: 05/12/2024 [...] Signed By: 05/12/24 1419 DD/ 1416 TD/TT: Jeep Mechanic:TBHRadiology, Radiologist, MD - 05/12/2024 [place] [address] CT Scan Report Signed Patient: MITZI MACIAS MR#: [id number] : 1970 Acct:[id number] Age/Sex: 53 / F ADM Date: 05/12/24 Loc: CT Attending Dr: Gaviota MAYERS Ordering Physician: Gaviota Adames Date of Service: 05/12/24 Procedure(s): CT abdomen pelvis w con Accession Number(s): [id number] cc: Mckayla Blas NP [place] [id number] Patient Name: MITZI MACIAS MRN: TBH:[id number] date: 1970 Sex: F Assigned Patient Location: CT Current Patient Location: Accession/Order Number: [id number] Exam Date: 05/12/2024 11:15 Report Date: 05/12/2024 [...] Signed By: 05/12/24 1419 DD/ 15 TD/TT: Jeep Mechanic: CARLOS HealthcareRadiology Study observation (narrative)[facility] HealthcareCT ABDOMEN PELVIS W CONOrdered By: Radiologist Radiology on 92-47-8556YQCV [employer] Work Phone: MR LUMBAR SPINE WO CONon 43-44-5761AioSaunemin, [place] [address] Magnetic Resonance Report Signed Patient: MITZI MACIAS MR#: [id number] : 1970 Acct:[id number] Age/Sex: 53 / F ADM Date: 05/12/24 Loc: MRI Attending Dr: Celestina Cochran NP Ordering Physician: Celestina Cochran NP Date of Service: 05/12/24 Procedure(s): MR lumbar spine wo con Accession Number(s): [id number] cc: Mckayla Blas NP; Celestina Cochran NP [place] [address] Patient Name: MITZI MACIAS MRN: [id number] date: 1970 Sex: F Assigned Patient Location: MRI Current Patient Location: CT Accession/Order Number: [id number] Exam Date: 05/12/2024 09:21 Report Date: 05/12/2024 [...] Signed By: 05/12/24 1443 DD/ 1441 TD/TT: Jeep Mechanic:TBHRadiology, Radiologist, - 05/12/2024 [place] [address] Magnetic Resonance Report Signed Patient: MITZI MACIAS MR#: [id number] : 1970 Acct:[id number] Age/Sex: 53 / F ADM Date: 05/12/24 Loc: MRI Attending Dr: Celestina Cochran NP Ordering Physician: Celestina Cochran NP Date of Service: 05/12/24 Procedure(s): MR lumbar spine wo con Accession Number(s): [id number] cc: Mckayla Blas NP; Celestina Cochran NP [address] [address] Patient Name: MITZI MACIAS MRN: [facility]:[id number] date: 1970 Sex: F Assigned Patient Location: MRI Current Patient Location: CT Accession/Order Number: [id number] Exam Date: 05/12/2024 09:21 Report Date: 05/12/2024 [...] Signed By: 05/12/24 1443 DD/ 1441 TD/TT: Jeep Mechanic: CARLOS HealthcareRadiology Study observation (narrative)[facility] LUMBAR SPINE WO CONOrdered By: Radiologist Radiology on 82-71-0498DNYQ Healthcare Work Phone: TB CREATININEon 83-22-9534Cqzblkkwjl [Mass/Vol]0.92 mg/dL0.55 - 1.02 mg/dLNOAR HealthcareGFR/1.73 sq M.predicted CKD-EPI (S/P/Bld) [Vol rate/Area]>60>=60 mL/min/1.73m 2NOMS HealthcareTBH EGFR-NON AF KOSOVAN>60 >=60 mL/min/1.73m 2NOMS HealthcareCLINISYNCNBAILEY MEDICAL CENTER [facility] [place] HealthcareSEGMENTAL BLOOD PRESSUREon 60-96-9518WuuSaunemin, [place] [address] Vein Report Signed Patient: MITZI MACIAS MR#: [id number] : 1970 Acct:[id number] Age/Sex: 53 / F ADM Date: 04/24/24 Loc: VC Attending Dr: Comfort Pretty Ordering Physician: Comfort Pretty Date of Service: 04/24/24 Procedure(s): VC SEGMENTAL PRESSURES Accession Number(s): [id number] cc: Mckayla Blas NP; Comfort Pretty [place] [id number] Patient Name: MITZI MACIAS MRN: [id number] date: 1970 Sex: F Assigned Patient Location: Current Patient Location: Accession/Order Number: [id number] Exam Date: 04/24/2024 10:25 Report Date: 04/24/2024 11:20 At the request of: COMFORT PRETTY Procedure: VC SEGMENTAL PRESSURES EXAM: VC SEGMENTAL PRESSURES HISTORY: R09.89 COMPARISON: None. FINDINGS: Segmental pressures presented as follows (right, left) in mmHg. Brachial: 169, 166 Upper thigh: Not obtained Lower thigh: 129, 119 Calf: 124, 106 DPA: 108, 105 DIAMOND CUTTER: 100, 91 1st Toe: 124, 142 ISABELLE: [...] Signed By: 04/24/24 1123 DD/ 1120 TD/TT: Jeep Mechanic:TBHRadiology, Radiologist, - 04/24/2024 [place] [address] Vein Report Signed Patient: MITZI MACIAS MR#: [id number] : 1970 Acct:[id number] Age/Sex: 53 / F ADM Date: 04/24/24 Loc: VC Attending Dr: Comfort Pretty Ordering Physician: Comfort Pretty Date of Service: 04/24/24 Procedure(s): VC SEGMENTAL PRESSURES Accession Number(s): [id number] cc: Mckayla Blas NP; Comfort Pretty [place] [id number] Patient Name: MITZI MACIAS MRN: [facility]:[id number] date: 1970 Sex: F Assigned Patient Location: Current Patient Location: VC Accession/Order Number: [id number] Exam Date: 04/24/2024 10:25 Report Date: 04/24/2024 11:20 At the request of: COMFORT PRETTY Procedure: VC SEGMENTAL PRESSURES EXAM: VC SEGMENTAL PRESSURES HISTORY: R09.89 COMPARISON: None. FINDINGS: Segmental pressures presented as follows (right, left) in mmHg. Brachial: 169, 166 Upper thigh: Not obtained Lower thigh: 129, 119 Calf: 124, 106 DPA: 108, 105 DIAMOND CUTTER: 100, 91 1st Toe: 124, 142 ISABELLE: [...] Signed By: 04/24/24 1123 DD/ 1120 TD/TT: Jeep Mechanic: CARLOS HealthcareRadiology Study observation (narrative)NOMS HealthcareSEGMENTAL BLOOD PRESSUREOrdered By: Radiologist Radiology on 37-30-1336[employer] Work Phone: mm TOMOSYNTHESIS SCREENING BIon 04-92-5607WonSaunemin, [place] [address] Mammography Report Signed Patient: MITZI MACIAS MR#: [id number] : 1970 Acct:[id number] Age/Sex: 53 / F ADM Date: 12/13/23 Loc: MAMMO Attending Dr: Mckayla Blas NP Ordering Physician: Mckayla Blas NP Results: Date of Service: 12/13/23 Follow Up: Procedure(s): MM tomosynthesis screening BI Accession Number(s): [id number] cc: Mckayla Blas NP Patient Name: MITZI MACIAS MR#: [id number] : 1970 Exam Date: 12/13/2023 Ordering Doctor: [...] 75. LOCATION: [facility] BREAST COMPOSITION: The breasts are almost [...] Signed By: 12/14/23 1122 DD/ 1121 TD/TT: Jeep Mechanic:TBHRadiology, Radiologist, MD - 12/14/2023 [place] [address] Mammography Report Signed Patient: MITZI MACIAS MR#: [id number] : 1970 Acct:[id number] Age/Sex: 53 / F ADM Date: 12/13/23 Loc: MAMMO Attending Dr: Mckayla Blas NP Ordering Physician: Mckayla Blas NP Results: Date of Service: 12/13/23 Follow Up: Procedure(s): MM tomosynthesis screening BI Accession Number(s): [id number] cc: Mckayla Blas NP Patient Name: MITZI MACIAS MR#: [id number] : 1970 Exam Date: 12/13/2023 Ordering Doctor: [...] 75. LOCATION: [facility] BREAST COMPOSITION: The breasts are almost [...] LUMP SHOULD BE BIOPSIED. Dictated by: Patricia eVloz M.D. on 12/14/2023 at 11:18 Approved by: Patricia Veloz M.D. on 12/14/2023 at 11:21 Dictated By: Patricia Veloz M.D. Signed By: 12/14/23 1122 DD/ 1121 TD/TT: Jeep Mechanic: [facility] HospitalRadiology Study observation (narrative)[facility] TOMOSYNTHESIS SCREENING BIOrdered By: Radiologist Radiology on 64-41-3996TXCCGolden Valley Memorial Hospital Work Phone: bLOOD CULTURE 1on 99-27-0993JAVKF CULTURE 1 Blood Culture 1 NG5D NO GROWTH AT 5 DAYS.^NO GROWTH AT [address] [facility] HealthcareBLOOD CULTURE 2on 44-38-0603AMGUR CULTURE 2 Blood Culture 2 NG5D NO GROWTH AT 5 DAYS.^NO GROWTH AT 5 DAYS. [facility] HospitalNo Panel Informationon 20-58-2529SJSGRGPSHJUHY HealthcareECG 12-LEADon 45-97-7195Gbi [address] [address] Electrocardiograph Report Signed Patient: MITZI MACIAS MR#: [id number] : 1970 Acct:[id number] Age/Sex: 53 / F ADM Date: 08/31/23 Loc: MS 214-[address]: Jacqueline Becerra D.O. Ordering Physician: Andra Alcala Date of Service: 08/31/23 Procedure(s): ECG 12 lead Accession Number(s): [id number] cc: [facility] Test Date: 2023-08-31 Pat Name: MITZI MACIAS Department: Room: - Gender: Female Marketing Intelligence Manager: : 1970 Requested By: MCKAYLA BLAS Order Number: [id number] Reading MD: LAURI DIOR Measurements Intervals [place] Rate: 102 P: 67 VT: 144 QRS: 52 QRSD: 72 T: 49 QT: 326 QTc: 385 Interpretive Statements 1120 Sinus tachycardia 4068 Nonspecific Twave abnormality 8102 Low QRS voltage in chest leads 9140 abnormal rhythm ECG Compared to ECG 12/04/2022 21:27:48 Electronically Signed On 09-02-2023 7:31:43 EST by LAURI DIOR Dictated By: Lauri Dior D.O. Signed By: 09/02/23 0732 DD/ 1808 TD/TT: Jeep Mechanic:TBHRadiology, Radiologist, - 09/02/2023 [place] [address] Electrocardiograph Report Signed Patient: MITZI MACIAS MR#: [id number] : 1970 Acct:[id number] Age/Sex: 53 / F ADM Date: 08/31/23 Loc: [place] 214-[address]: Jacqueline Becerra D.O. Ordering Physician: Andra Alcala Date of Service: 08/31/23 Procedure(s): ECG 12 lead Accession Number(s): [id number] cc: [facility] Test Date: 2023-08-31 Pat Name: MITZI MACIAS Department: Room: - Gender: Female Marketing Intelligence Manager: : 1970 Requested By: MCKAYLA BLAS Order Number: [id number] Reading MD: LAURI DIOR Measurements Intervals [place] Rate: 102 P: 67 VT: 144 QRS: 52 QRSD: 72 T: 49 QT: 326 QTc: 385 Interpretive Statements 1120 Sinus tachycardia 4068 Nonspecific Twave abnormality 8102 Low QRS voltage in chest leads 9140 abnormal rhythm ECG Compared to ECG 12/04/2022 21:27:48 Electronically Signed On 09-02-2023 7:31:43 EST by LAURI DIOR Dictated By: Lauri Dior D.O. Signed By: 09/02/23 0732 DD/ 1808 TD/TT: Jeep Mechanic: CARLOS [facility] 12-LEADOrdered By: Radiologist Radiology on [id number] Work Phone: ECG 12-LEADon [id number] Study observation (narrative)[facility]OSPITALHenna Parkview HealthCBC AUTO DIFFon [id number] #0.0 103/ulNormal 0.0-0.1The [facility] HospitalComment on above:Performed By: #### CBC #### [facility] [address] [place] [address] Dr. Ashlie HillsBasophils/100 WBC (Bld)0.1 %Critically low0.2-2.0The [facility] HospitalComment on above:Performed By: #### CBC #### [facility] [address] [place] [address] Dr. Ashlie Mcintosh #0.0 103/ulNormal0.0-0.7The [facility] HospitalComment on above: Performed By: #### CBC #### [facility] [address] [place] [address] Dr. Ashlie Grahamosinophils/100 WBC (Bld)0.0 %Critically low0.9-7.0The [facility] HospitalComment on above:Performed By: #### CBC #### [facility] [address] [place] [address] Dr. Ashlie Grahamrythrocyte distribution width (RBC) [Ratio]14.9 %Sagqzl95.0-15.0 The [facility] HospitalComment on above:Performed By: #### CBC #### [facility] [address] [place] [address] Dr. Yilan ChangHematocrit (Bld) [Volume fraction]46.2 %Cregpr46.0-48.0The [facility] HospitalComment on above:Performed By: #### CBC #### [facility] [address] [place] [address] Dr. Ashlie HillsHemoglobin (Bld) [Mass/Vol]14.7 g/wECqlbsd59.0-16.0The [facility] HospitalComment on above:Performed By: #### CBC #### [facility] [address] [place] [address] Dr. Ashlie HillsIG #0.06 10e3/ulCritically high0.00-0.03The [facility] Comment on above:Performed By: #### CBC #### [facility] [address] [place] [address] Dr. Ashlie HillsIG %0.4 %Normal0.0-0.5The [facility] HospitalComment on above: Performed By: #### CBC #### [facility] [address] [place] [address] Dr. Ashlie Swenson #1.3 103/ulNormal1.2-3.8The [facility] HospitalComment on above:Performed By: #### CBC #### [facility] [address] [place] [address] Dr. Ashlie Jademphocytes/100 WBC (Bld)9.4 %Critically low20.5-60.0The [facility] HospitalComment on above:Performed By: #### CBC #### [facility] [address] [place] [address] Dr. Ashlie HillsMANUAL DIFF REQNONormalThe [facility] HospitalComment on above: Performed By: #### CBC #### [facility] [address] [place] [address] Dr. Ashlie Granger (RBC) [Entitic mass]28.4 paKjcknj85.7-34.0The [facility] HospitalComment on above:Performed By: #### CBC #### [facility] [address] [place] [address] Dr. Ashlie Mckeon (RBC) [Mass/Vol]31.8 g/sIWokrtu13.9-35.2The [facility] HospitalComment on above:Performed By: #### CBC #### [facility] [address] [address] [address] Ashlie MckeonV (RBC) [Entitic vol]89.4 xKBahlwu71.0-99.0The [facility] HospitalComment on above:Performed By: #### CBC #### [facility] [address] [address] [address] Ashlie Killian #0.5 103/ulNormal0.3-0.8The [facility] HospitalComment on above:Performed By: #### CBC #### [facility] [address] [address] [address] Ashlie Palominoocytes/100 WBC (Bld)3.4 %Normal1.7-12.0[facility] Comment on above:Performed By: #### CBC #### [facility] [address] [address] [address] Ashlie Olsen #11.8 103/ulCritically high1.4-6.5The [facility] Comment on above:Performed By: #### CBC #### [facility] [address] [place] [address] Dr. Ashlie Steinutrophils/100 WBC (Bld)86.7 %Critically high43.0-75.0The [facility] HospitalComment on above:Performed By: #### CBC #### [facility] [address] [address] [address] Ashlie Lantigualet mean volume (Bld) [Entitic vol]12.6 fLNormal9.5-13.5The [facility] HospitalComment on above:Performed By: #### CBC #### [facility] [address] [address] [address] Ashlie HillsPLT133 103/ulCritically eyu913-244Qex [facility] HospitalComment on above:Performed By: #### CBC #### [facility] [address] [address] [address] Ashlie HillsRBC5.17 106/ulNormal4.20-5.40The [facility] HospitalComment on above:Performed By: #### CBC #### [facility] [address] [place] [address] Dr. Ashlie HillsWBC13.6 103/ulCritically high4.0-11.0The [facility] HospitalComment on above:Performed By: #### CBC #### [facility] [address] [place] [address] Dr. Ashlie HillsMAGNESIUMon 60-71-4923Bkzgzlkpz [Mass/Vol]2.2 mg/dLNormal1.8-2.4 The [facility] HospitalComcorewell health [facility] on above:Performed By: #### INFLUAB #### [facility] [address] [place] [address] Dr. Ashlie HillsPOINT OF CARE GLUCOSEon 22-59-9983Vivqkxu [Mass/Vol]340 mg/dL Critically tyub25-208Jpt [facility] HospitalComment on above:Performed By: #### POCGLUC #### [facility] [address] [place] [address] Dr. Ashlie HillsGlucose [Mass/Vol]276 mg/dLCritically kfod06-960Ctj [facility] HospitalComment on above:Performed By: #### CBC #### [facility] [address] [place] [address] Dr. Ashlie HillsGlucose [Mass/Vol]333 mg/dLCritically wboy63-283Qdp [facility] HospitalComment on above:Performed By: #### CBC #### [facility] [address] [place] [address] Dr. Ashlie HillsPROF CHEM 8 (BAS METB)on 24-35-1050Wujot gap [Moles/Vol]10.9 mmol/LNormalLancaster Municipal HospitalComment on above:Performed By: #### INFLUAB #### [facility] [address] [place] [address] Dr. Ashlie HillsCalcium [Mass/Vol]9.3 mg/dLNormal8.5-10.1[facility] Comment on above:Performed By: #### INFLUAB #### [facility] [address] [address] [address] Ashlie HillsChloride [Moles/Vol]103 mmol/TMzjiwn92-624Qga [facility] Comment on above:Performed By: #### INFLUAB #### [facility] [address] [address] [address] Ashlie HillsCO2 [Moles/Vol]31.2 mmol/CBrepey28.0-32.0[facility] Comment on above:Performed By: #### INFLUAB #### [facility] [address] [place] [address] Dr. Ashlie HillsCreatinine [Mass/Vol]0.96 mg/dLNormal0.55-1.02The [facility] HospitalComment on above:Performed By: #### INFLUAB #### [facility] [address] [place] [address] Dr. Ashlie GrahamGFR-AF KOSOVAN>60Normal>=60The [facility] HospitalComment on above:Performed By: #### INFLUAB #### [facility] [address] [place] [address] Dr. Ashlie GrahamGFR-NON AF KOSOVAN>60Normal>=60The [facility] HospitalComment on above:Performed By: #### INFLUAB #### [facility] [address] [address] [address] Ashlie HillsGlucose [Mass/Vol]288 mg/dLCritically azcj89-433Vhz [facility] HospitalComment on above:Performed By: #### INFLUAB #### [facility] [address] [address] [address] Ashlie HillsPotassium [Moles/Vol]5.1 mmol/LNormal3.5-5.1[facility] Comment on above:Performed By: #### INFLUAB #### [facility] [address] [place] [address] Dr. Ashlie HillsSodium [Moles/Vol]140 mmol/LFixzuc675-852EcgLancaster Municipal Hospital Comment on above:Performed By: #### INFLUAB #### [facility] [address] [place] [address] Dr. Ashlie Jones nitrogen [Mass/Vol]30.0 mg/dLCritically high7.0-18.0The [facility] HospitalComment on above:Performed By: #### INFLUAB #### [facility] [address] [place] [address] Dr. Ashlie Jones nitrogen/Creatinine [Mass ratio]31.2 mg/mgNormalThe [facility] HospitalComment on above:Performed By: #### INFLUAB #### [facility] [address] [place] [address] Dr. Ashlie Chinchilla AUTO DIFFon 28-34-1715ODHI #0.0 103/ulNormal0.0-0.1The [facility] HospitalComment on above:Performed By: #### CBC #### [facility] [address] [place] [address] Dr. Ashlie HillsBasophils/100 WBC (Bld)0.4 %Normal0.2-2.0[facility] Comment on above:Performed By: #### CBC #### [facility] [address] [place] [address] Dr. Ashlie Mcintosh #0.0 103/ulNormal0.0-0.7The [facility] HospitalComment on above: Performed By: #### CBC #### [facility] [address] [place] [address] Dr. Ashlie Grahamosinophils/100 WBC (Bld)0.0 %Critically low0.9-7.0The [facility] HospitalComment on above:Performed By: #### CBC #### [facility] [address] [place] [address] Dr. Ashlie Grahamrythrocyte distribution width (RBC) [Ratio]14.8 %Rwyyog84.0-15.0 The [facility] HospitalComment on above:Performed By: #### CBC #### [facility] [address] [place] [address] Dr. Ashlie HillsHematocrit (Bld) [Volume fraction]49.9 %Critically high36.0-48.0 The [facility] HospitalComment on above:Performed By: #### CBC #### [facility] [address] [place] [address] Dr. Ashlie HillsHemoglobin (Bld) [Mass/Vol]15.7 g/oTMaipjr19.0-16.0The [facility] HospitalComment on above:Performed By: #### CBC #### [facility] [address] [place] [address] Dr. Ashlie Hunter #0.04 10e3/ulCritically high0.00-0.03The [facility] Comment on above:Performed By: #### CBC #### [facility] [address] [place] [address] Dr. Ashlie Hunter %0.5 %Normal0.0-0.5The [facility] HospitalComment on above: Performed By: #### CBC #### [facility] [address] [place] [address] Dr. Ashlie Swenson #1.1 103/ulCritically low1.2-3.8The [facility] Comment on above:Performed By: #### CBC #### [facility] [address] [place] [address] Dr. Ashlie Dsouzahocytes/100 WBC (Bld)12.7 %Critically low20.5-60.0The [facility] HospitalComment on above:Performed By: #### CBC #### [facility] [address] [place] [address] Dr. Ashlie GhoshUAL DIFF REQNONormalThe [facility] HospitalComment on above: Performed By: #### CBC #### [facility] [address] [place] [address] Dr. Ashlie Granger (RBC) [Entitic mass]28.1 dnMhwfvg86.7-34.0The [facility] HospitalComment on above:Performed By: #### CBC #### [facility] [address] [place] [address] Dr. Ashlie Mckeon (RBC) [Mass/Vol]31.5 g/nEVixzik52.9-35.2The [facility] HospitalComment on above:Performed By: #### CBC #### [facility] [address] [address] [address] Ashlie Mckeon (RBC) [Entitic vol]89.3 cTGttnkw86.0-99.0The [facility] HospitalComment on above:Performed By: #### CBC #### [facility] [address] [place] [address] Dr. Ashlie Killian #0.1 103/ulCritically low0.3-0.8The [facility] HospitalComment on above:Performed By: #### CBC #### [facility] [address] [place] [address] Dr. Ashlie Palominoocytes/100 WBC (Bld)1.3 %Critically low1.7-12.0The [facility] HospitalComment on above:Performed By: #### CBC #### [facility] [address] [place] [address] Dr. Ashlie Olsen #7.2 103/ulCritically high1.4-6.5The [facility] Comment on above:Performed By: #### CBC #### [facility] [address] [place] [address] Dr. Ashlie Steinutrophils/100 WBC (Bld)85.1 %Critically high43.0-75.0The [facility] HospitalComment on above:Performed By: #### CBC #### [facility] [address] [place] [address] Dr. Ashlie Lantigualet mean volume (Bld) [Entitic vol]12.2 fLNormal9.5-13.5The [facility] HospitalComment on above:Performed By: #### CBC #### [facility] [address] [place] [address] Dr. Ashlie HillsPLT116 103/ulCritically moi696-737Gkq [facility] HospitalComment on above:Performed By: #### CBC #### [facility] [address] [address] [address] Ashlie HillsRBC5.59 106/ulCritically high4.20-5.40The [facility] Comment on above:Performed By: #### CBC #### [facility] [address] [address] [address] Ashlie HillsWBC8.5 103/ulNormal4.0-11.0The [facility] HospitalComment on above: Performed By: #### CBC #### [facility] [address] [address] [address] Ashlie Harrison CHEST WO W CONon 59-16-0141EQI CHEST WO W CONEXAMINATION: CTA CHEST WO [...] Electronically authenticated by: HATTIE GOFF Date: 2022-12-05 01:[address] [place], [place] [address]ue HospitalMAGNESIUMon 19-07-4930Lipztglfv [Mass/Vol]2.1 mg/dLNormal 1.8-2.4The [facility] HospitalComment on above:Performed By: #### POCGLUC #### [facility] [address] [address] [address] Ashlie HillsPOINT OF CARE GLUCOSEon 86-60-4940Ltqilco [Mass/Vol]293 mg/dL Critically gqjh09-609UuxLancaster Municipal HospitalComment on above:Performed By: #### POCGLUC #### [facility] [address] [address] [address] Ashlie HillsGlucose [Mass/Vol]269 mg/dLCritically kxlk44-097Ccw [facility] HospitalComment on above:Performed By: #### POCGLUC #### [facility] [address] [place] [address] Dr. Ashlie HillsGlucose [Mass/Vol]223 mg/dLCritically cgkk34-643Gzd [facility] HospitalComment on above:Performed By: #### CVDAGS #### [facility] [address] [address] [address] Ashlie HillsPROF CHEM 8 (BAS METB)on 43-56-4074Lcfry gap [Moles/Vol]11.6 mmol/LNormalLancaster Municipal HospitalComment on above:Performed By: #### POCGLUC #### [facility] [address] [address] [address] Ashlie HillsCalcium [Mass/Vol]9.2 mg/dLNormal8.5-10.1[facility] Comment on above:Performed By: #### POCGLUC #### [facility] [address] [address] [address] Ashlie HillsChloride [Moles/Vol]102 mmol/CHlryjt65-068YapLancaster Municipal Hospital Comment on above:Performed By: #### POCGLUC #### [facility] [address] [place] [address] Dr. Ashlie HillsCO2 [Moles/Vol]28.7 mmol/UBmjryw66.0-32.0[facility] Comment on above:Performed By: #### POCGLUC #### [facility] [address] [address] [address] Ashlie HillsCreatinine [Mass/Vol]1.04 mg/dLCritically high0.55-1.02[facility] HospitalComment on above:Performed By: #### POCGLUC #### [facility] [address] [address] [address] Ashlie GrahamGFR-AF KOSOVAN>60Normal>=60The [facility] HospitalComment on above:Performed By: #### POCGLUC #### [facility] [address] [address] [address] Ashlie GrahamGFR-NON AF ICGVEOZC70 mL/min/1.99x3Lpqvgoxoeh low>=60The [facility] HospitalComment on above:Performed By: #### POCGLUC #### [facility] [address] [address] [address] Ashlie HillsGlucose [Mass/Vol]231 mg/dLCritically dslh54-135Ekh [facility] HospitalComment on above:Performed By: #### POCGLUC #### [facility] [address] [address] [address] Ashlie HillsPotassium [Moles/Vol]4.3 mmol/LNormal3.5-5.1[facility] Comment on above:Performed By: #### POCGLUC #### [facility] [address] [address] [address] Ashlie HillsSodium [Moles/Vol]138 mmol/JGkogib528-952MycLancaster Municipal Hospital Comment on above:Performed By: #### POCGLUC #### [facility] [address] [address] [address] Ashlie HillsUrea nitrogen [Mass/Vol]17.0 mg/dLNormal7.0-18.0The [facility] HospitalComment on above:Performed By: #### POCGLUC #### [facility] [address] [address] [address] Ashlie HillsUrea nitrogen/Creatinine [Mass ratio]16.3 mg/mgNormalThe [facility] HospitalComment on above:Performed By: #### POCGLUC #### [facility] [address] [address] [address] Ashlie HillsRESPIRATORY PANEL PLUSon 26-27-8866OkizeockatSje detectedNormal NOT DETECTEDThe [facility] HospitalComment on above:Performed By: #### CVDAGS #### [facility] [address] [address] [address] Ashlie Gandhi ParapertusisNot detectedNormalNOT DETECTEDThe [facility] HospitalComment on above:Performed By: #### CVDAGS #### [facility] [address] [address] [address] Ashlie Gandhi PertussisNot detectedNormalNOT DETECTEDThe [facility] on above:Performed By: #### CVDAGS #### [facility] [address] [address] [address] Ashlie HillsChlamydia PneumoniaeNot detectedNormalNOT DETECTEDThe [facility] HospitalComment on above:Performed By: #### CVDAGS #### [facility] [address] [address] [address] Ashlie HillsCoronavirus 229ENot detectedNormalNOT DETECTEDThe [facility] HospitalComcorewell health [facility] on above:Performed By: #### CVDAGS #### [facility] [address] [address] [address] Ashlie HillsCoronavirus WGW7Zqh detectedNormalNOT DETECTEDThe [facility] HospitalComment on above:Performed By: #### CVDAGS #### [facility] [address] [address] [address] Ashlie HillsCoronavirus UT91Atf detectedNormalNOT DETECTEDThe [facility] HospitalComment on above:Performed By: #### CVDAGS #### [facility] [address] [address] [address] Ashlie HillsCoronavirus VF93Faa detectedNormalNOT DETECTEDThe [facility] HospitalComment on above:Performed By: #### CVDAGS #### [facility] [address] [address] [address] Ashlie Centeno H1Not detectedNormalNOT DETECTEDThe [facility] Comment on above:Performed By: #### CVDAGS #### [facility] [address] [address] [address] Ashlie Centeno H1 2009Not detectedNormalNOT DETECTEDThe [facility] HospitalComment on above:Performed By: #### CVDAGS #### [facility] [address] [address] [address] Ashlie Centeno H3Not detectedNormalNOT DETECTEDThe [facility] Comment on above:Performed By: #### CVDAGS #### [facility] [address] [address] [address] Ashlie Lockhart BNot detectedNormalNOT DETECTEDLancaster Municipal Hospital Comment on above:Performed By: #### CVDAGS #### [facility] [address] [address] [address] Ashlie ChávezapneumovirusNot detectedNormalNOT DETECTEDThe [facility] HospitalComment on above:Performed By: #### CVDAGS #### [facility] [address] [address] [address] Ashlie Jimenez[address] PneumoniaeNot detectedNormalNOT DETECTEDThe [facility] HospitalComcorewell health [facility] hospital on above:Performed By: #### CVDAGS #### [facility] [address] [address] [address] Ashlie Mendieta 1Not detectedNormalNOT DETECTEDThe [facility] HospitalComment on above:Performed By: #### CVDAGS #### [facility] [address] [address] [address] Ashlie Mendieta 2Not detectedNormalNOT DETECTEDThe [facility] HospitalComcorewell health big [facility] on above:Performed By: #### CVDAGS #### [facility] [address] [address] [address] Ashlie Mendieta 3DetectedAbnormalNOT DETECTEDThe [facility] Comment on above:Performed By: #### CVDAGS #### [facility] [address] [place] [address] Dr. Ashlie Harringtonfluenza 4Not detectedNormalNOT DETECTEDThe [facility] HospitalComment on above:Performed By: #### CVDAGS #### [facility] [address] [place] [address] Dr. Ashlie HillsRhino/EnterovirusNot detectedNormalNOT DETECTEDThe [facility] HospitalComment on above:Performed By: #### CVDAGS #### [facility] [address] [place] [address] Dr. Ashlie Gallagher Header 1RESPIRATORY PANEL: VIRUSESSelect [facility] [place] Comment on above:Performed By: #### CVDAGS #### [facility] [address] [place] [address] Dr. Ashlie Gallagher Header 2RESPIRATORY PANEL: BACTERIASelect Medical Specialty Hospital - YoungstownComment on above:Performed By: #### CVDAGS #### [facility] [address] [place] [address] Dr. Ashlie TerryVNot detectedNormalNOT DETECTEDThe [facility] HospitalComcorewell health [facility] on above:Performed By: #### CVDAGS #### [facility] [address] [place] [address] Dr. Ashlie Finney-CoV-2 (COVID-19) RNA MADDY+probe Ql (Unsp spec)Not detected NormalNOT DETECTEDThe [facility] Hospitalment on above:Performed By: #### CVDAGS #### [facility] [address] [place] [address] Dr. Ashlie HillsXR CHEST 1 Von [id number] CHEST 1 VEXAMINATION: XR CHEST 1 V HISTORY: Shortness of breath COMPARISON: Chest x-ray 08/09/2021 TECHNIQUE: Portable chest FINDINGS: The lung parenchyma is free of consolidation or infiltrate. No pneumothorax or pleural effusion. The cardiac, mediastinal and hilar contours are normal. The visualized osseous structures exhibit no gross abnormality. IMPRESSION: No acute cardiopulmonary abnormality. Electronically authenticated by: MARYANNE POWER Date: 2022-12-04 22:23NoUniversity Hospitals Health SystemBLOOD GASES BTYon [id number] [facility] Vincent HospitalComment on above:Performed By: #### CBC #### [facility] [address] [address] [address] Ashlie Duran TESTPositiveSelect Medical Specialty Hospital - YoungstownComcorewell health big rap[facility] hospital on above: Performed By: #### CBC #### [facility] [address] [address] [address] Ashlie Crenshaw excess Calc (Bld) [Moles/Vol]5.4 mmol/LCritically high -2.0-2.0The [facility] on above:Performed By: #### CBC #### [facility] [address] [address] [address] Ashlie Cevallos [facility] on above: Performed By: #### CBC #### [facility] [address] [address] [address] Ashlie HillsCPBarberton Citizens Hospital on above:Performed By: #### CBC #### [facility] [address] [address] [address] Ashlie RodMztgyWIL1BzmqnzWlrKnox Community Hospital on above:Performed By: #### CBC #### [facility] [address] [address] [address] Ashlie BahenaO3 (Bld) [Moles/Vol]30.8 mmol/LCritically high22.0-26.0The [facility] on above:Performed By: #### CBC #### [facility] [address] [address] [address] Ashlie HillsLPMNormalLancaster Municipal HospitalComcorewell health big rap[facility] hospital on above:Performed By: #### CBC #### [facility] [address] [address] [address] Ashlie HackettAdena Regional Medical CenterComcorewell health big rapids hospital on above: Performed By: #### CBC #### [facility] [address] [address] [address] Ashlie HillsOxygen (Bld) [Partial pressure]46.3 mm[Hg]Critically low 80.0-100.0The [facility] HospitalComment on above:Performed By: #### CBC #### [facility] [address] [place] [address] Dr. Ashlie HillsOxygen saturation in Blood83.9 %Critically low95.0-100.0The [facility] on above:Performed By: #### CBC #### [facility] [address] [place] [address] Dr. Ashlie HillsPCO254.2 mmHgCritically high35.0-45.0The [facility] HospitalComcorewell health big [facility] hospital on above:Performed By: #### CBC #### [facility] [address] [place] [address] Dr. Ashlie HillsTrinity Health SystemComcorewell health big rapids hospital on above:Performed By: #### CBC #### [facility] [address] [place] [address] Dr. Ashlie Knapp (Bld)7.363 [pH]Normal7.350-7.450The [facility] on above:Performed By: #### CBC #### [facility] [address] [place] [address] Dr. Ashlie VerasBarnesville Hospital on above:Performed By: #### CBC #### [facility] [address] [place] [address] Dr. Ashlie HillsUniversity Hospitals Cleveland Medical CenterComcorewell health big rap[facility] hospital on above:Performed By: #### CBC #### [facility] [address] [place] [address] Dr. Ashlie Avendano Genesis HospitalComcorewell health [facility] on above: Performed By: #### CBC #### [facility] [address] [place] [address] Dr. Ashlie GoldGalion HospitalComcorewell health big rapids hospital on above:Performed By: #### CBC #### [facility] [address] [place] [address] Dr. Ashlie HillsSt. Mary's Medical Center, Ironton CampusComcorewell health big rap[facility] hospital on above:Performed By: #### CBC #### [facility] [address] [place] [address] Dr. Ashlie DoeNormalThe [facility] HospitalComment on above:Performed By: #### CBC #### [facility] [address] [place] [address] Dr. Ashlie Perry [id number] peptide B (Bld) [Mass/Vol]76.0 pg/mL Normal<=900.0The [facility] HospitalComment on above:Performed By: #### POCGLUC #### [facility] [address] [place] [address] Dr. Ashlie Chinchilla AUTO DIFFon [id number] #0.1 103/ulNormal0.0-0.1The [facility] HospitalComment on above:Performed By: #### CBC #### [facility] [address] [place] [address] Dr. Ashlie HillsBasophils/100 WBC (Bld)0.6 %Normal0.2-2.0[facility] Comment on above:Performed By: #### CBC #### [facility] [address] [place] [address] Dr. Ashlie Mcintosh #0.2 103/ulNormal0.0-0.7The [facility] HospitalComcorewell health big rap[facility] hospital on above: Performed By: #### CBC #### [facility] [address] [place] [address] Dr. Ashlie Grahamosinophils/100 WBC (Bld)1.9 %Normal0.9-7.0[facility] Comment on above:Performed By: #### CBC #### [facility] [address] [place] [address] Dr. Ashlie Grahamrythrocyte distribution width (RBC) [Ratio]15.0 %Vnzgpw22.0-15.0 [facility] HospitalComment on above:Performed By: #### CBC #### [facility] [address] [place] [address] Dr. Ashlie HillsHematocrit (Bld) [Volume fraction]49.1 %Critically high36.0-48.0 The [facility] HospitalComment on above:Performed By: #### CBC #### [facility] [address] [place] [address] Dr. Ashlie HillsHemoglobin (Bld) [Mass/Vol]15.6 g/wMZyrobp68.0-16.0The [facility] HospitalComment on above:Performed By: #### CBC #### [facility] [address] [place] [address] Dr. Ashlie Hunter #0.02 10e3/ulNormal0.00-0.03The [facility] HospitalComment on above:Performed By: #### CBC #### [facility] [address] [place] [address] Dr. Ashlie Hunter %0.2 %Normal0.0-0.5The [facility] HospitalComment on above: Performed By: #### CBC #### [facility] [address] [place] [address] Dr. Ashlie Swenson #2.8 103/ulNormal1.2-3.8The [facility] HospitalComment on above:Performed By: #### CBC #### [facility] [address] [place] [address] Dr. Ashlie Dsouzahocytes/100 WBC (Bld)29.9 %Mjydzq27.5-60.0The [facility] HospitalComment on above:Performed By: #### CBC #### [facility] [address] [place] [address] Dr. Ashlie GhoshUAL DIFF REQNONormalThe [facility] HospitalComment on above: Performed By: #### CBC #### [facility] [address] [place] [address] Dr. Ashlie Granger (RBC) [Entitic mass]28.5 sdBehgyu73.7-34.0The [facility] HospitalComment on above:Performed By: #### CBC #### [facility] [address] [place] [address] Dr. Ashlie Mckeon (RBC) [Mass/Vol]31.8 g/zSSbegce86.9-35.2The [facility] HospitalComment on above:Performed By: #### CBC #### [facility] [address] [place] [address] Dr. Ashlie MckeonV (RBC) [Entitic vol]89.8 vTDeerrz70.0-99.0The [facility] HospitalComment on above:Performed By: #### CBC #### [facility] [address] [place] [address] Dr. Ashlie Killian #1.0 103/ulCritically high0.3-0.8The [facility] Comment on above:Performed By: #### CBC #### [facility] [address] [place] [address] Dr. Ashlie Palominoocytes/100 WBC (Bld)10.6 %Normal1.7-12.0[facility] Comment on above:Performed By: #### CBC #### [facility] [address] [place] [address] Dr. Ashlie Olsen #5.3 103/ulNormal1.4-6.5The [facility] HospitalComment on above:Performed By: #### CBC #### [facility] [address] [place] [address] Dr. Ashlie Steinutrophils/100 WBC (Bld)56.8 %Luqzua87.0-75.0The [facility] HospitalComment on above:Performed By: #### CBC #### [facility] [address] [place] [address] Dr. Ashlie Lantigualet mean volume (Bld) [Entitic vol]12.5 fLNormal9.5-13.5The [facility] HospitalComment on above:Performed By: #### CBC #### [facility] [address] [place] [address] Dr. Ashlie HillsPLT109 103/ulCritically rba106-469Ueu [facility] HospitalComment on above:Performed By: #### CBC #### [facility] [address] [place] [address] Dr. Ashlie HillsRBC5.47 106/ulCritically high4.20-5.40The [facility] Comment on above:Performed By: #### CBC #### [facility] [address] [place] [address] Dr. Ashlie HillsWBC9.4 103/ulNormal4.0-11.0The [facility] HospitalComment on above: Performed By: #### CBC #### [facility] [address] [place] [address] Dr. Ashlie LlanosF 14(COMP METB)on 75-20-5722Dmmiegi [Mass/Vol]2.9 g/dL Critically low3.4-5.0The [facility] HospitalComment on above:Performed By: #### CBC #### [facility] [address] [place] [address] Dr. Ashlie HillsAlbumin/Globulin [Mass ratio]0.6 {ratio}NormalThe [facility] HospitalComment on above:Performed By: #### CBC #### [facility] [address] [place] [address] Dr. Ashlie Gonzalez [Catalytic activity/Vol]64 U/MXxkrcx06-725Fdt [facility] HospitalComment on above:Performed By: #### CBC #### [facility] [address] [place] [address] Dr. Ashlie Chambers [Catalytic activity/Vol]16 U/OYlwyjk74-87Toz [facility] HospitalComment on above:Performed By: #### CBC #### [facility] [address] [place] [address] Dr. Ashlie Arce gap [Moles/Vol]9.6 mmol/LNormalThe [facility] HospitalComment on above:Performed By: #### CBC #### [facility] [address] [place] [address] Dr. Ashlie Tiwari [Catalytic activity/Vol]16 U/MTjjtdr61-77Mys [facility] HospitalComment on above:Performed By: #### CBC #### [facility] [address] [place] [address] Dr. Ashlie HillsBilirubin [Mass/Vol]0.5 mg/dLNormal0.2-1.0The [facility] Comment on above:Performed By: #### CBC #### [facility] [address] [place] [address] Dr. Ashlie HillsCalcium [Mass/Vol]8.7 mg/dLNormal8.5-10.1[facility] Comment on above:Performed By: #### CBC #### [facility] [address] [place] [address] Dr. Ashlie HillsChloride [Moles/Vol]103 mmol/KEznpxs90-645Grz [facility] Comment on above:Performed By: #### CBC #### [facility] [address] [place] [address] Dr. Ashlie HillsCO2 [Moles/Vol]30.7 mmol/DYdoqwq35.0-32.0[facility] Comment on above:Performed By: #### CBC #### [facility] [address] [place] [address] Dr. Ashlie HillsCreatinine [Mass/Vol]0.96 mg/dLNormal0.55-1.02The [facility] HospitalComment on above:Performed By: #### CBC #### [facility] [address] [place] [address] Dr. Ashlie GrahamGFR-AF KOSOVAN>60Normal>=60The [facility] HospitalComment on above:Performed By: #### CBC #### [facility] [address] [place] [address] Dr. Ashlie Delaney-NON AF KOSOVAN>60Normal>=60The [facility] HospitalComment on above:Performed By: #### CBC #### [facility] [address] [place] [address] Dr. Ashlie HillsGlobulin (S) [Mass/Vol]4.7 g/dLNormalThe [facility] HospitalComment on above:Performed By: #### CBC #### [facility] [address] [place] [address] Dr. Aslhie HillsGlucose [Mass/Vol]170 mg/dLCritically lmxq81-881Unx [facility] HospitalComment on above:Performed By: #### CBC #### [facility] [address] [address] [address] Ashlie HillsPotassium [Moles/Vol]4.3 mmol/LNormal3.5-5.1The [facility] Comment on above:Performed By: #### CBC #### [facility] [address] [address] [address] Ashlie HillsProtein [Mass/Vol]7.6 g/dLNormal6.4-8.2[facility] Comment on above:Performed By: #### CBC #### [facility] [address] [address] [address] Ashlie HillsSodium [Moles/Vol]139 mmol/IYqqzvh096-260Xby [facility] Comment on above:Performed By: #### CBC #### [facility] [address] [address] [address] Ashlie HillsUrea nitrogen [Mass/Vol]16.0 mg/dLNormal7.0-18.0The [facility] HospitalComment on above:Performed By: #### CBC #### [facility] [address] [address] [address] Ashlie Jones nitrogen/Creatinine [Mass ratio]16.7 mg/mgNormalThe [facility] HospitalComment on above:Performed By: #### CBC #### [facility] [address] [address] [address] Ashlie KirbyMPTOMATIC COVID-19 ANTIGENon [id number] StatementSEE BELOW NormalThe [facility] HospitalComment on above:Result Comment: This test has [...] is revoked sooner.Performed By: #### CVDAGS #### [facility] [address] [place] [address] Dr. Ashlie Finney-CoV-2 (COVID-19) RNA MADDY+probe Ql (Unsp spec)NegativeNormal NEGATIVEThe [facility] HospitalComment on above:Performed By: #### CVDAGS #### [facility] [address] [place] [address] Dr. Ashlie Alvarado, [facility] SENSITIVITYon [id number] pg/mLNormal 4.0-51.3The [facility] HospitalComment on above:Result Comment: CUT-OFF POINTS HAVE BEEN ESTABLISHED BASED ON THE FOURTH UNIVERSAL DEFINITIONS OF MYOCARDIAL INFARCTION. THE UPPER REFERENCE LIMIT (URL) OF TROPONIN, DEFINED THE 99TH PERCENTILE OF cTnI DISTRIBUTION IN A REFERENCE POPULATION, HAS BEEN CONFIRMED THE DECISION THRESHOLD FOR MA DIAGNOSIS.Performed By: #### POCGLUC #### [facility] [address] [place] [address] Dr. Ashlie MarshallALBUMIN, RAND URon 83-18-0482dBHI74.8 mg/dLCritically high <=30.0The [facility] HospitalComment on above:Performed By: #### CVDAGS #### [facility] [address] [place] [address] Dr. Ashlie Vaughn RANDOM W/MICROSCOPICon [id number] SEENNormalNONE SEENLancaster Municipal HospitalComment on above:Performed By: #### CVDAGS #### [facility] [address] [place] [address] Dr. Ashlie HillsBilirubin Ql (U)NegativeNormalNEGATIVEThe [facility] Comment on above:Performed By: #### CVDAGS #### [facility] [address] [place] [address] Dr. Ashlie SchultzSEENAbnormalNONE SEENThe [facility] HospitalComment on above: Performed By: #### CVDAGS #### [facility] [address] [address] [address] Ashlie HillsClarity (U)CLEARNormalCLEARLancaster Municipal HospitalComcorewell health [facility] on above: Performed By: #### CVDAGS #### [facility] [address] [address] [address] Ashlie Roberts (U)YELLOWNormalYELLOWLancaster Municipal HospitalComment on above: Performed By: #### CVDAGS #### [facility] [address] [address] [address] Ashlie HillsCrystals LM Nom (Urine sed)NONE SEENNormalNONE SEENLancaster Municipal HospitalComcorewell health [facility] on above:Performed By: #### CVDAGS #### [facility] [address] [place] [address] Dr. Dailey ChangEpithelial cells LM Ql (Urine sed)MODERATEAbnormalNONE SEEN /RARE The [facility] HospitalComcorewell health [facility] on above:Performed By: #### CVDAGS #### [facility] [address] [place] [address] Dr. Ashlie HillsGlucose Ql (U)NegativeNormalNEGATIVELancaster Municipal HospitalComcorewell health [facility] on above:Performed By: #### CVDAGS #### [facility] [address] [place] [address] Dr. Ashlie HillsHemoglobin Ql (U)TRACE-INTACTAbnormalNEGATIVELancaster Municipal HospitalComcorewell health [facility] on above:Performed By: #### CVDAGS #### [facility] [address] [place] [address] Dr. Ashlie HillsKetones Ql (U)NegativeNormalNEGATIVELancaster Municipal HospitalComcorewell health [facility] on above:Performed By: #### CVDAGS #### [facility] [address] [place] [address] Dr. Ashlie HillsLEUKOCYTESNegativeNormalNEGATIVELancaster Municipal HospitalComcorewell health [facility] on above:Performed By: #### CVDAGS #### [facility] [address] [place] [address] Dr. Ashlie McphersonUSRODRIGUEZE SEENNormalNONE SEENLancaster Municipal HospitalComment on above:Performed By: #### CVDAGS #### [facility] [address] [place] [address] Dr. Ashlie Soares Ql (U)NegativeNormalNEGATIVEThe [facility] HospitalComment on above:Performed By: #### CVDAGS #### [facility] [address] [place] [address] Dr. Ashlie HillspH (U)5.0 [pH]Normal5-9The [facility] HospitalComment on above: Performed By: #### CVDAGS #### [facility] [address] [place] [address] Dr. Ashlie PruettAmtcrMFH3-4Caidib9-3Byj [facility] HospitalComment on above:Performed By: #### CVDAGS #### [facility] [address] [place] [address] Dr. Ashlie HillsSPEC GRAVITY1.285Ogmapjqj0.005-<=1.025The [facility] Comment on above:Performed By: #### CVDAGS #### [facility] [address] [place] [address] Dr. Ashlie Vaughn EOKDSZZ134 mg/dlAbnormalNEGATIVE/ TRACEThe [facility] Comment on above:Performed By: #### CVDAGS #### [facility] [address] [place] [address] Dr. Ashlie Metzbilkrystynagen Qn (U)0.2 {Little'U}/dLNormal0.2 - 1.0The [facility] HospitalComment on above:Performed By: #### CVDAGS #### [facility] [address] [place] [address] Dr. Ashlie HillsWBCNONE SEENNormalNONE SEENLancaster Municipal HospitalComment on above: Performed By: #### CVDAGS #### [facility] [address] [place] [address] Dr. Ashlie Chinchilla AUTO DIFFon [id number] #0.0 103/ulNormal0.0-0.1The [facility] HospitalComment on above:Performed By: #### CBC #### [facility] [address] [place] [address] Dr. Ashlie HillsBasophils/100 WBC (Bld)0.3 %Normal0.2-2.0[facility] Comment on above:Performed By: #### CBC #### [facility] [address] [place] [address] Dr. Ashlie Mcintosh #0.4 103/ulNormal0.0-0.7The [facility] Lodi HospitalComment on above: Performed By: #### CBC #### [facility] [address] [place] [address] Dr. Ashlie Grahamosinophils/100 WBC (Bld)3.0 %Normal0.9-7.0[facility] Comment on above:Performed By: #### CBC #### [facility] [address] [place] [address] Dr. Ashlie Grahamrythrocyte distribution width (RBC) [Ratio]15.3 %Critically high 11.0-15.0[facility] HospitalComment on above:Performed By: #### CBC #### [facility] [address] [place] [address] Dr. Ashlie HillsHematocrit (Bld) [Volume fraction]52.4 %Critically high36.0-48.0 [facility] HospitalComment on above:Performed By: #### CBC #### [facility] [address] [place] [address] Dr. Ashlie HillsHemoglobin (Bld) [Mass/Vol]16.8 g/dLCritically high12.0-16.0[facility] HospitalComment on above:Performed By: #### CBC #### [facility] [address] [place] [address] Dr. Ashlie Hunter #0.04 10e3/ulCritically high0.00-0.03The [facility] Comment on above:Performed By: #### CBC #### [facility] [address] [place] [address] Dr. Ashlie Hunter %0.3 %Normal0.0-0.5The [facility] HospitalComment on above: Performed By: #### CBC #### [facility] [address] [place] [address] Dr. Ashlie Swenson #4.5 103/ulCritically high1.2-3.8The [facility] Comment on above:Performed By: #### CBC #### [facility] [address] [place] [address] Dr. Ashlie Dsouzahocytes/100 WBC (Bld)33.2 %Maohfr15.5-60.0The [facility] HospitalComment on above:Performed By: #### CBC #### [facility] [address] [place] [address] Dr. Ashlie GhoshUAL DIFF REQNONormalThe [facility] HospitalComment on above: Performed By: #### CBC #### [facility] [address] [place] [address] Dr. Ashlie Granger (RBC) [Entitic mass]28.0 klGddgij48.7-34.0The [facility] HospitalComment on above:Performed By: #### CBC #### [facility] [address] [place] [address] Dr. Ashlie Mckeon (RBC) [Mass/Vol]32.1 g/xUEnhwyd87.9-35.2The [facility] HospitalComment on above:Performed By: #### CBC #### [facility] [address] [place] [address] Dr. Ashlie Mckeon (RBC) [Entitic vol]87.3 yVXoryqr52.0-99.0The [facility] HospitalComment on above:Performed By: #### CBC #### [facility] [address] [place] [address] Dr. Ashlie Killian #0.8 103/ulNormal0.3-0.8The [facility] HospitalComment on above:Performed By: #### CBC #### [facility] [address] [place] [address] Dr. Ashlie Palominoocytes/100 WBC (Bld)5.7 %Normal1.7-12.0[facility] Comment on above:Performed By: #### CBC #### [facility] [address] [place] [address] Dr. Ashlie Olsen #7.8 103/ulCritically high1.4-6.5ThUniversity Hospitals [facility] Comment on above:Performed By: #### CBC #### [facility] [address] [address] [address] Ashlie Steinutrophils/100 WBC (Bld)57.5 %Tjabty10.0-75.0The [facility] HospitalComment on above:Performed By: #### CBC #### [facility] [address] [place] [address] Dr. Ashlie HillsPlatelet mean volume (Bld) [Entitic vol]12.0 fLNormal9.5-13.5The [facility] HospitalComment on above:Performed By: #### CBC #### [facility] [address] [place] [address] Dr. Ashlie HillsPLT152 103/wzIcjwdu606-604FjzLancaster Municipal HospitalComment on above: Performed By: #### CBC #### [facility] [address] [place] [address] Dr. Ashlie HillsRBC6.00 106/ulCritically high4.20-5.40[facility] Comment on above:Performed By: #### CBC #### [facility] [address] [place] [address] Dr. Ashlie HilslWBC13.6 103/ulCritically high4.0-11.0[facility] HospitalComment on above:Performed By: #### CBC #### [facility] [address] [place] [address] Dr. Ashlie HillsLIPID PROFILEon [id number]-HDL RATIO NORMSEE BELOWNoUniversity Hospitals Health SystemComment on above:Result Comment: 3.3 - 4.4 LOW RISK 4.4 - 7.1 AVERAGE RISK 7.1 - 11.0 MODERATE RISK >11.0 HIGH RISKPerformed By: #### CBC #### [facility] [address] [address] [address] Ashlie HillsCholesterol [Mass/Vol]139 mg/dLNormal<=200[facility] Comment on above:Performed By: #### CBC #### [facility] [address] [address] [address] Ashlie HillsCholesterol in HDL [Mass/Vol]35 mg/dLCritically syo13-82GumLancaster Municipal HospitalComment on above:Performed By: #### CBC #### [facility] [address] [address] [address] Ashlie HillsCholesterol in LDL [Mass/Vol]67.4 mg/dLSelect Medical Specialty Hospital - YoungstownComment on above:Performed By: #### CBC #### [facility] [address] [place] [address] Dr. Ashlie Lopezesteroralia.total/Cholesterol in HDL [Mass ratio]4.0 {ratio} NormalLancaster Municipal HospitalComment on above:Performed By: #### CBC #### [facility] [address] [address] [address] Ashlie Potts NORMAL> or = 60 mg/dl - LOW CARDIOVASCULAR RISK <40 mg/dl - HIGH CARDIOVASCULAR RISKSelect Medical Specialty Hospital - YoungstownComment on above:Performed By: #### CBC #### [facility] [address] [address] [address] Ashlie HillsLDL CALC NORMALSEE BELOWSelect Medical Specialty Hospital - YoungstownComment on above:Result Comment: <100 mg/dl OPTIMAL 100 - 129 mg/dl NEAR OR ABOVE OPTIMAL 130 - 159 mg/dl BORDERLINE HIGH 160 - 189 mg/dl HIGH >190 mg/dl VERY HIGH Performed By: #### CBC #### [facility] [address] [place] [address] Dr. Ahslie HillsTriglyceride [Mass/Vol]183 mg/dLCritically high<=150The [facility] HospitalComment on above:Performed By: #### CBC #### [facility] [address] [address] [address] Ashlie HillsVLDL CALC36.6 mg/dLNoUniversity Hospitals Health SystemComment on above: Performed By: #### CBC #### [facility] [address] [address] [address] sAhlie HillsMG MAMM SCREEN 3D ALEX CADon [id number] MAMM SCREEN 3D ALEX CAD Patient: MITZI MACIAS Exam Date: 11/22/2022 : 1970 Gender:F Ordering : SAYDA MCKAYLA [employer] Admission #: [id number] Family : Order #: [id number] CLICK HERE TO VIEW EXAM RADIOLOGY REPORT [...] 75. LOCATION: [facility] BREAST COMPOSITION: Almost entirely fatty. FINDINGS: [...] by: Patricia Veloz M.D. on 11/22/2022 at 12:09NoUniversity Hospitals Health SystemPROF 14(COMP METB)on [id number] [Mass/Vol]3.0 g/dLCritically low 3.4-5.0The [facility] HospitalComment on above:Performed By: #### CBC #### [facility] [address] [address] [address] Ashlie HillsAlbumin/Globulin [Mass ratio]0.6 {ratio}NormalThe [facility] HospitalComment on above:Performed By: #### CBC #### [facility] [address] [address] [address] Ashlie MoralesP [Catalytic activity/Vol]68 U/VVshvcl52-115Ipz [facility] HospitalComment on above:Performed By: #### CBC #### [facility] [address] [address] [address] Ashlie MoralesT [Catalytic activity/Vol]14 U/DNtaynj72-38Toi [facility] HospitalComment on above:Performed By: #### CBC #### [facility] [address] [place] [address] Dr. Ashlie Hassanon gap [Moles/Vol]12.1 mmol/LNormalThe [facility] Comment on above:Performed By: #### CBC #### [facility] [address] [place] [address] Dr. Ashlie HillsAST [Catalytic activity/Vol]9 U/LCritically cli85-01Him [facility] HospitalComment on above:Performed By: #### CBC #### [facility] [address] [place] [address] Dr. Ashlie HillsBilirubin [Mass/Vol]0.4 mg/dLNormal0.2-1.0[facility] Comment on above:Performed By: #### CBC #### [facility] [address] [place] [address] Dr. Ashlie HillsCalcium [Mass/Vol]9.0 mg/dLNormal8.5-10.1[facility] Comment on above:Performed By: #### CBC #### [facility] [address] [place] [address] Dr. Ashlie HillsChloride [Moles/Vol]105 mmol/CImdwbi96-800Ahb [facility] Comment on above:Performed By: #### CBC #### [facility] [address] [address] [address] Ashlie HillsCO2 [Moles/Vol]30.7 mmol/BXackol79.0-32.0[facility] Comment on above:Performed By: #### CBC #### [facility] [address] [place] [address] Dr. Ashlie HillsCreatinine [Mass/Vol]0.77 mg/dLNormal0.55-1.02The [facility] HospitalComment on above:Performed By: #### CBC #### [facility] [address] [place] [address] Dr. Dailey ChangEGFR-AF KOSOVAN>60Normal>=60The [facility] HospitalComment on above:Performed By: #### CBC #### [facility] [address] [place] [address] Dr. Ashlie GrahamGFR-NON AF KOSOVAN>60Normal>=60The [facility] HospitalComment on above:Performed By: #### CBC #### [facility] [address] [place] [address] Dr. Ashlie HillsGlobulin (S) [Mass/Vol]4.8 g/dLNormalThe [facility] HospitalComment on above:Performed By: #### CBC #### [facility] [address] [place] [address] Dr. Ashlie HillsGlucose [Mass/Vol]162 mg/dLCritically ozur14-638Pdh [facility] HospitalComment on above:Performed By: #### CBC #### [facility] [address] [place] [address] Dr. Ashlie HillsPotassium [Moles/Vol]3.8 mmol/LNormal3.5-5.1[facility] Comment on above:Performed By: #### CBC #### [facility] [address] [place] [address] Dr. Ashlie HillsProtein [Mass/Vol]7.8 g/dLNormal6.4-8.2[facility] Comment on above:Performed By: #### CBC #### [facility] [address] [place] [address] Dr. Ashlie Jimenezdium [Moles/Vol]144 mmol/MKpzluy200-739Zzl [facility] Comment on above:Performed By: #### CBC #### [facility] [address] [place] [address] Dr. Ashlie Jones nitrogen [Mass/Vol]24.0 mg/dLCritically high7.0-18.0The [facility] HospitalComment on above:Performed By: #### CBC #### [facility] [address] [place] [address] Dr. Ashlie Jones nitrogen/Creatinine [Mass ratio]31.2 mg/mgNormalThe [facility] HospitalComment on above:Performed By: #### CBC #### [facility] [address] [place] [address] Dr. Ashlie Chinchilla AUTO DIFFon [id number] #0.1 103/ulNormal0.0-0.1The [facility] HospitalComment on above:Performed By: #### CBC #### [facility] [address] [place] [address] Dr. Ashlie HillsBasophils/100 WBC (Bld)0.6 %Normal0.2-2.0[facility] Comment on above:Performed By: #### CBC #### [facility] [address] [place] [address] Dr. Ashlie Mcintosh #0.3 103/ulNormal0.0-0.7The [facility] HospitalComment on above: Performed By: #### CBC #### [facility] [address] [place] [address] Dr. Ashlie Grahamosinophils/100 WBC (Bld)2.1 %Normal0.9-7.0[facility] Comment on above:Performed By: #### CBC #### [facility] [address] [place] [address] Dr. Ashlie Grahamrythrocyte distribution width (RBC) [Ratio]15.9 %Critically high 11.0-15.0The [facility] HospitalComment on above:Performed By: #### CBC #### [facility] [address] [address] [address] Ashlie HillsHematocrit (Bld) [Volume fraction]51.8 %Critically high36.0-48.0 The [facility] HospitalComment on above:Performed By: #### CBC #### [facility] [address] [place] [address] Dr. Ashlie HillsHemoglobin (Bld) [Mass/Vol]16.6 g/dLCritically high12.0-16.0The [facility] HospitalComment on above:Performed By: #### CBC #### [facility] [address] [place] [address] Dr. Ashlie HillsIG #0.03 10e3/ulNormal0.00-0.03The [facility] HospitalComment on above:Performed By: #### CBC #### [facility] [address] [place] [address] Dr. Ashlie Hunter %0.2 %Normal0.0-0.5The [facility] HospitalComment on above: Performed By: #### CBC #### [facility] [address] [place] [address] Dr. Ashlie Swenson #3.9 103/ulCritically high1.2-3.8[facility] Comment on above:Performed By: #### CBC #### [facility] [address] [place] [address] Dr. Ashlie Jademphocytes/100 WBC (Bld)31.7 %Fhljhs91.5-60.0The [facility] HospitalComment on above:Performed By: #### CBC #### [facility] [address] [place] [address] Dr. Ashlie GhoshUAL DIFF REQNONormalThe [facility] HospitalComment on above: Performed By: #### CBC #### [facility] [address] [place] [address] Dr. Ashlie Granger (RBC) [Entitic mass]27.9 pbOkfjuv87.7-34.0The [facility] HospitalComment on above:Performed By: #### CBC #### [facility] [address] [address] [address] Ashlie Mckeon (RBC) [Mass/Vol]32.0 g/oKMpbgav40.9-35.2The [facility] HospitalComment on above:Performed By: #### CBC #### [facility] [address] [place] [address] Dr. Ashlie MckeonV (RBC) [Entitic vol]87.1 aPHziijb76.0-99.0The [facility] HospitalComment on above:Performed By: #### CBC #### [facility] [address] [place] [address] Dr. Ashlie Killian #0.7 103/ulNormal0.3-0.8The [facility] HospitalComment on above:Performed By: #### CBC #### [facility] [address] [place] [address] Dr. Ashlie Palominoocytes/100 WBC (Bld)5.8 %Normal1.7-12.0[facility] Comment on above:Performed By: #### CBC #### [facility] [address] [place] [address] Dr. Ashlie Olsen #7.3 103/ulCritically high1.4-6.5[facility] Comment on above:Performed By: #### CBC #### [facility] [address] [place] [address] Dr. Ashlie Steinutrophils/100 WBC (Bld)59.6 %Eyyvub67.0-75.0[facility] HospitalComment on above:Performed By: #### CBC #### [facility] [address] [place] [address] Dr. Ashlie Lantigualet mean volume (Bld) [Entitic vol]11.7 fLNormal9.5-13.5The [facility] HospitalComment on above:Performed By: #### CBC #### [facility] [address] [place] [address] Dr. Ashlie HillsPLT117 103/ulCritically bkc767-882Kly [facility] HospitalComment on above:Performed By: #### CBC #### [facility] [address], [place] [address] [address] Ashlie HillsRBC5.95 106/ulCritically high4.20-5.40The [facility] Comment on above:Performed By: #### CBC #### [facility] [address], [place] [address] [address] Ashlie HillsWBC12.3 103/ulCritically high4.0-11.0The [facility] HospitalComment on above:Performed By: #### CBC #### [facility] [address] [place], [place] [address] Dr. Ashlie HillsCT ABD/PELV W CONon [id number] ABD/PELV W CONEXAM: CT ABD/PELV W CON [...] Electronically authenticated by: RICCO PICKARD Date: 2022-10-05 13:13NoHolmes County [facility] URINE PROFILEon [id number] Ql (U)NegativeNormal NEGATIVEThe [facility] HospitalComment on above:Performed By: #### POCGLUC #### [facility] [address] [address] [address] Ashlie Leungarity (U)CLEARNormalCLEARLancaster Municipal HospitalComment on above: Performed By: #### POCGLUC #### [facility] [address] [address] [address] Ashlie Prescottlor (U)YELLOWNormalYELLOWLancaster Municipal HospitalComment on above: Performed By: #### POCGLUC #### [facility] [address] [address] [address] Ashlie Clayton micrscopic examination will be performed if indicated. NormalThe [facility] HospitalComment on above:Performed By: #### POCGLUC #### [facility] [address] [address] [address] Ashlie Rutledgeose Ql (U)NegativeNormalNEGATIVELancaster Municipal HospitalComment on above:Performed By: #### POCGLUC #### [facility] [address] [address] [address] Ashlie HillsHemoglobin Ql (U)NegativeNormalNEGATIVECorey Hospital on above:Performed By: #### POCGLUC #### [facility] [address] [address] [address] Ashlie HillsKetones Ql (U)NegativeNormalNEGATIVELancaster Municipal HospitalComment on above:Performed By: #### POCGLUC #### [facility] [address] [address] [address] Ashlie HillsLEUKOCYTESNegativeNormalNEGATIVELancaster Municipal HospitalComment on above:Performed By: #### POCGLUC #### [facility] [address] [address] [address] Ashlie HillsNitrite Ql (U)NegativeNormalNEGATIVELancaster Municipal HospitalComment on above:Performed By: #### POCGLUC #### [facility] [address] [address] [address] Ashlie HillspH (U)6.0 [pH]Normal5-9[facility] HospitalComment on above: Performed By: #### POCGLUC #### [facility] [address] [address] [address] Ashlie HillsProtein (U) [Mass/Vol]100 mg/dLAbnormalNEGATIVE/ TRACEThe [facility] HospitalComment on above:Performed By: #### POCGLUC #### [facility] [address] [place] [address] Dr. Ashlie HillsSPEC GRAVITY1.305Rwvqge5.005-<=1.025The [facility] HospitalComment on above:Performed By: #### POCGLUC #### [facility] [address] [place] [address] Dr. Ashlie Sullivan MICRO INDINDICATEDNormalThUniversity Hospitals Samaritan Medical CenterComment on above: Performed By: #### POCGLUC #### [facility] [address] [place] [address] Dr. Ashlie HillsUrobilinogen Qn (U)1.0 {Little'U}/dLNormal0.2 - 1.0The [facility] HospitalComment on above:Performed By: #### POCGLUC #### [facility] [address] [place] [address] Dr. Ashlie HillsLIPASEon [id number] [Catalytic activity/Vol]1771.0 U/L Critically high73.0-393.0The [facility] HospitalComment on above:Performed By: #### CBC #### [facility] [address] [place] [address] Dr. Ashlie CrossG HCG QUALon [id number], QUALNegativeNormalNEGATIVE The [facility] HospitalComment on above:Performed By: #### POCGLUC #### [facility] [address] [place] [address] Dr. Ashlie HillsPROF 14(COMP METB)on [id number] [Mass/Vol]3.2 g/dL Critically low3.4-5.0The [facility] HospitalComment on above:Performed By: #### CBC #### [facility] [address] [place] [address] Dr. Ashlie HillsAlbumin/Globulin [Mass ratio]0.7 {ratio}NormalLancaster Municipal HospitalComment on above:Performed By: #### CBC #### [facility] [address] [address] [address] Ashlie Gonzalez [Catalytic activity/Vol]70 U/IFrrhea63-265Xbm [facility] HospitalComment on above:Performed By: #### CBC #### [facility] [address] [address] [address] Ashlie Chambers [Catalytic activity/Vol]11 U/LCritically iny80-33Twi [facility] HospitalComment on above:Performed By: #### CBC #### [facility] [address] [address] [address] Ashlie Hassanon gap [Moles/Vol]10.3 mmol/LNormalLancaster Municipal Hospital Comment on above:Performed By: #### CBC #### [facility] [address] [address] [address] Ashlie HillsAST [Catalytic activity/Vol]11 U/LCritically flq65-33Jyn [facility] HospitalComment on above:Performed By: #### CBC #### [facility] [address] [address] [address] Ashlie HillsBilirubin [Mass/Vol]0.9 mg/dLNormal0.2-1.0The [facility] Comment on above:Performed By: #### CBC #### [facility] [address] [address] [address] Ashlie HillsCalcium [Mass/Vol]9.3 mg/dLNormal8.5-10.1[facility] Comment on above:Performed By: #### CBC #### [facility] [address] [address] [address] Ashlie HillsChloride [Moles/Vol]105 mmol/GXosyjg05-621Iyp [facility] Comment on above:Performed By: #### CBC #### [facility] [address] [address] [address] Ashlie HillsCO2 [Moles/Vol]30.6 mmol/PDgczky61.0-32.0[facility] Comment on above:Performed By: #### CBC #### [facility] [address] [address] [address] Ashlie HillsCreatinine [Mass/Vol]0.62 mg/dLNormal0.55-1.02[facility] HospitalComment on above:Performed By: #### CBC #### [facility] [address] [address] [address] Ashlie GrahamGFR-AF KOSOVAN>60Normal>=60[facility] HospitalComment on above:Performed By: #### CBC #### [facility] [address] [address] [address] Ashlie GrahamGFR-NON AF KOSOVAN>60Normal>=60[facility] HospitalComment on above:Performed By: #### CBC #### [facility] [address] [address] [address] Ashlie HillsGlobulin (S) [Mass/Vol]4.6 g/dLNormalThe [facility] HospitalComment on above:Performed By: #### CBC #### [facility] [address] [address] [address] Ashlie HillsGlucose [Mass/Vol]85 mg/rYApjfzl58-077FneLancaster Municipal Hospital Comment on above:Performed By: #### CBC #### [facility] [address] [address] [address] Ashlie HillsPotassium [Moles/Vol]3.9 mmol/LNormal3.5-5.1[facility] Comment on above:Performed By: #### CBC #### [facility] [address] [address] [address] Ashlie HillsProtein [Mass/Vol]7.8 g/dLNormal6.4-8.2[facility] Comment on above:Performed By: #### CBC #### [facility] [address] [address] [address] Ashlie HillsSodium [Moles/Vol]142 mmol/UFukrhj366-750BvdLancaster Municipal Hospital Comment on above:Performed By: #### CBC #### [facility] [address] [address] [address] Ashlie Jones nitrogen [Mass/Vol]12.0 mg/dLNormal7.0-18.0[facility] on above:Performed By: #### CBC #### [facility] [address] [address] [address] Ashlie Jones nitrogen/Creatinine [Mass ratio]19.4 mg/mgNoUniversity Hospitals Health SystemComment on above:Performed By: #### CBC #### [facility] [address] [address] [address] Ashlie Recinos MICROSCOPIC ONLYon [id number]V SEEN Lancaster [facility] HospitalComcorewell health big rapids hospital on above:Performed By: #### POCGLUC #### [facility] [address] [address] [address] Ashlie Cortez identified Cx Nom (U)NOT INDICATEDNoSumma Health [facility]ron Campus on above:Performed By: #### POCGLUC #### [facility] [address] [address] [address] Ashlie HillsCASTNONE SEENNormalNONE SEENOhio Valley Hospital on above:Performed By: #### POCGLUC #### [facility] [address] [address] [address] Ashlie Boyerystals LM Nom (Urine sed)NONE SEENNormalNONE SEENOhio Valley Hospital on above:Performed By: #### POCGLUC #### [facility] [address] [address] [address] Ashlie Camarathelial cells LM Ql (Urine sed)MODERATEAbnormalNONE SEEN /RARE [facility] on above:Performed By: #### POCGLUC #### [facility] [address] [address] [address] Ashlie SuarezCOUSNONE SEENNounc health chathamNONE SEENOhio Valley Hospital on above:Performed By: #### POCGLUC #### [facility] [address] [address] [address] Ashlie HillsJojmuGCG8-7Yzbbba4-2DkoOhio Valley Hospital on above:Performed By: #### POCGLUC #### [facility] [address] [place] [address] Dr. Ashlie HillsWBC0-2AbnormalNONE SEENOhio Valley Hospital on above: Performed By: #### POCGLUC #### [facility] [address] [place] [address] Dr. Ashlie HillsCovid-19 PCR (CVDVALLEY SPRINGS [facility])on [id number]-CoV-2 (COVID-19) RNA MADDY+probe Ql (Unsp spec)DetectedAbnormalNOT DETECTEDThe [facility] on above:Result Comment: This test is not yet approved or cleared by the [place] FDA. When there are no FDA-approved or cleared tests available, and other criteria are met, FDA can make tests available under an emergency access mechanism called an Emergency Use Authorization (EUA). The EUA for this test is supported by the [place] of Health and Human Service's declaration that [...] longer be used).Performed By: #### CVDAGS #### [facility] [address] [place] [address] Dr. Ashlie HillsINFLUENZA A AND B AGon [id number] [facility] on above:Result Comment: Negative for Flu A protein angiten. Infection due to Flu A cannot be ruled out. FluA angiten in the sample may be below the detection limit of the test.Performed By: #### INFLUAB #### [facility] [address] [place] [address] Dr. Ashlie HillsINFLUBNEGHSEE [facility] on above: Result Comment: Negative for Flu B protein antigen. Infection due to Flu B cannot be ruled out. FluB antigen in the sample may be below the detection limit of the test.Performed By: #### INFLUAB #### [facility] [address] [place] [address] Dr. Ashlie Centeno AGNegativeNormalNEGATIVE SEE COMMENTThe [facility] HospitalComment on above:Performed By: #### INFLUAB #### [facility] [address] [address] [address] Ashlie Shaffer AGNegativeNormalNEGATIVE SEE COMMENTThe [facility] HospitalComment on above:Performed By: #### INFLUAB #### [facility] [address] [place] [address] Dr. Ashlie HillsCT ABD/PELV W CONon [id number] ABD/PELV W CONINDICATION: Disorder of adrenal gland [...] dating back to at least 10/21/2018, unchanged. https://www.ncbi.nlm.nih.gov/pmc/articles/IFC3639707/ Electronically authenticated by: COLLIN HUERTAS Date: 2022-07-27 14:56NormClermont County HospitalCREATININEon [id number] [Mass/Vol]0.81 mg/dLNormal 0.55-1.02[facility] HospitalComment on above:Performed By: #### CBC #### [facility] [address] [place] [address] Dr. Yilan ChangEGFR-AF KOSOVAN>60Normal>=60[facility] HospitalComment on above:Performed By: #### CBC #### [facility] [address], [place] [address] [address]. Dailey ChangEGFR-NON AF KOSOVAN>60Normal>=60[facility] HospitalComment on above:Performed By: #### CBC #### [facility] [address], [place] [address] Dr. Dailey ChangCT LOW EXT W CONT LTon [id number] LOW EXT W CONT LTEXAMINATION: CT LOW [...] Electronically authenticated by: PATRICIA VELOZ Date: 2022-07-18 14:[address] [place], [place] [address]XR KNEE LT 1_2 Von [id number] KNEE LT 1_2 VEXAM: XR KNEE LT [...] Electronically authenticated by: HATTIE BAUTISTA Date: 2022-07-18 12:00[facility]stownCovid-19 PCR (CVDTB)on [id number]-CoV-2 (COVID-19) RNA MADDY+probe Ql (Unsp spec)Not detectedNormalNOT DETECTEDThe [facility] Comment on above:Result Comment: This test is not yet approved or cleared by the [place] FDA. When there are no FDA-approved or cleared tests available, and other criteria are met, FDA can make tests available under an emergency access mechanism called an Emergency Use Authorization (EUA). The EUA for this test is supported by the [place] of Health and Human Service's (HHS's) declaration [...] consistent with SARS-CoV-2.Performed By: #### CBC #### [facility] [address] [place] [address] Dr. Ashlie MonteroNZA A AND B AGon [id number] Hospitals Cleveland Medical CenterComment on above:Result Comment: Negative for Flu A protein angiten. Infection due to Flu A cannot be ruled out. FluA angiten in the sample may be below the detection limit of the test.Performed By: #### CBC #### [facility] [address] [place] [address] Dr. Ashlie HillsINFLUBNEGUniversity Hospitals Cleveland Medical CenterComcorewell health big rapids hospital on above: Result Comment: Negative for Flu B protein antigen. Infection due to Flu B cannot be ruled out. FluB antigen in the sample may be below the detection limit of the test.Performed By: #### CBC #### [facility] [address] [place] [address] Dr. Ashlie Centeno AGNegativeNormalNEGATIVE SEE COMMENTThe [facility] on above:Performed By: #### CBC #### [facility] [address] [place] [address] Dr. Ashlie Shaffer AGNegativeNormalNEGATIVE SEE COMMENTThe [facility] on above:Performed By: #### CBC #### [facility] [address] [place] [address] Dr. Ashlie HillsPOINT OF CARE GLUCOSEon 61-58-4658Wqjkdip [Mass/Vol]108 mg/dL Critically vpeo94-562Fsm [facility] HospitalComcorewell health big rapids hospital on above:Performed By: #### CBC #### [facility] [address] [place] [address] Dr. Ashlie HillsANA by IFAon [id number] Antibodies, IFANegativeNormal [facility] HospitalComcorewell health big rapids hospital on above:Result Comment: Negative <1:80 Borderline 1:80 Positive >1:80 ICAP nomenclature: AC-0 For more information about Hep-2 cell patterns use ANApatterns.org, the official website for the International Consensus on Antinuclear Antibody (RAGHU) Patterns (ICAP).Performed By: #### ANAIFA #### [facility] [address] [place] [address] Dr. Ashlie HillsIMMUNOFIXATION (TREVON), URINEon [id number] Interpretation:U CommentNormalThe [facility] on above:Result Comment: No monoclonality detected.Performed By: #### CBC #### [facility] [address] [place] [address] Dr. Ashlie HillsIMMUNOFIXATION(TREVON),PROTEIN ELEC(PE),FREon [id number] [Mass/Vol]3.0 g/dLNormal2.9-4.4The [facility] on above:Performed By: #### INFLUAB #### [facility] [address] [place] [address] Dr. Ashlie HillsAlbumin/Globulin [Mass ratio]0.8 {ratio}Normal0.7-1.7The [facility] HospitalComment on above:Performed By: #### INFLUAB #### [facility] [address] [place] [address] Dr. Ashlie HillsLvfuzWpsxi-1-Vfvngkrx1.3 g/dLNormal0.0-0.4The [facility] HospitalComment on above:Performed By: #### INFLUAB #### [facility] [address] [place] [address] Dr. Ashlie HillsFkmzlKiumj-2-Qadiycov2.0 g/dLNormal0.4-1.0[facility] HospitalComment on above:Performed By: #### INFLUAB #### [facility] [address] [place] [address] Dr. Ashlie HillsBeta Globulin1.8 g/dLCritically high0.7-1.3TLouis Stokes [facility] Comment on above:Performed By: #### INFLUAB #### [facility] [address] [place] [address] Dr. Ashlie Skelton Landa Lt Chains,S45.2 mg/LCritically high3.3-19.4[facility] HospitalComment on above:Performed By: #### INFLUAB #### [facility] [address] [place] [address] Dr. Ashlie Skelton Lambda Lt Chains,S40.3 mg/LCritically high5.7-26.3[facility] HospitalComment on above:Performed By: #### INFLUAB #### [facility] [address] [place] [address] Dr. Ashlie HillsGamma Globulin0.8 g/dLNormal0.4-1.8The [facility] HospitalComment on above:Performed By: #### INFLUAB #### [facility] [address] [place] [address] Dr. Ashlie HillsGlobulin (S) [Mass/Vol]3.9 g/dLNormal2.2-3.9[facility] Comment on above:Performed By: #### INFLUAB #### [facility] [address] [place] [address] Dr. Ashlie HillsImmunofixation Result, SerumCommentNoUniversity Hospitals Health System Comment on above:Result Comment: No monoclonality detected.Performed By: #### INFLUAB #### [facility] [address] [place] [address] Dr. Ashlie HillsImmunoglobulin A, Qn, Hkuxr551 mg/dLCritically zfpz96-974Rrz [facility] HospitalComment on above:Performed By: #### INFLUAB #### [facility] [address] [place] [address] Dr. Ashlie HillsImmunoglobulin G, Qn, Saxrp133 mg/bVJqowvt804-8540Rjq [facility] HospitalComcorewell health big rapids hospital on above:Performed By: #### INFLUAB #### [facility] [address] [place] [address] Dr. Ashlie HillsImmunoglobulin M, Qn, Serum39 mg/uGAaigin25-088Bsi [facility] HospitalComment on above:Performed By: #### INFLUAB #### [facility] [address] [place] [address] Dr. Ashlie HillsKappa/Lambda Ratio, S1.71Geokzc7.26-1.65[facility] Comment on above:Performed By: #### INFLUAB #### [facility] [address] [place] [address] Dr. Ashlie HillsM-SpikeNot ObservedNormalNot ObservedThe [facility] HospitalComment on above:Performed By: #### INFLUAB #### [facility] [address] [place] [address] Dr. Ashlie Bradford.NormalThe [facility] HospitalComment on above:Performed By: #### INFLUAB #### [facility] [address] [place] [address] Dr. Ashlie Fletcher note:CommentKnox Community Hospital on above: Result Comment: Protein electrophoresis scan will follow via computer, mail, or biology adjunct instructor delivery.Performed By: #### INFLUAB #### [facility] [address] [place] [address] Dr. Ashlie HillsProtein [Mass/Vol]6.9 g/dLNormal6.0-8.5[facility] Comment on above:Performed By: #### INFLUAB #### [facility] [address] [place] [address] Dr. Ashlie HillsC-PEPTIDE, SERUMon 60-06-1343I-Peptide, Serum3.1 ng/mLNormal 1.1-4.4The [facility] HospitalComment on above:Result Comment: C-Peptide reference interval is for fasting patients.Performed By: #### CPEPT #### [facility] [address] [place] [address] Dr. Ashlie Sandoval B SURFACE ANTIGEN SCREENon [id number] ScreenNegative NormalNegativeThe [facility] HospitalComment on above:Performed By: #### CBC #### [facility] [address] [place] [address] Dr. Ashlie ReavesPATITIS C VIRUS AB W/ REFLEX QUANTon [id number] AB<0.1Normal 0.0-0.9The [facility] HospitalComment on above:Performed By: #### INFLUAB #### [facility] [address] [place] [address] Dr. Ashlie HillsInterpretation:CommentNormalThUniversity Hospitals Samaritan Medical CenterComment on above:Result Comment: Negative Not infected with HCV, unless recent infection is suspected or other evidence exists to indicate HCV infection.Performed By: #### INFLUAB #### [facility] [address] [place] [address] Dr. Ashlie HillsMICROALBUMIN/ CREATININE RATIOon [id number], Xbigt244.4 ug/mLNormalNot Estab.The [facility] HospitalComment on above:Performed By: #### CBC #### [facility] [address] [place] [address] Dr. Ashlie HillsAlbumin/ Creatinine Wnyjk015 mg/g creatCritically high0-29The [facility] HospitalComment on above:Result Comment: Normal: 0 - 29 Moderately increased: 30 - 300 Severely increased: >300Performed By: #### CBC #### [facility] [address] [address] [address] Ashlie HillsCreatinine, Yligp458.9 mg/dLNormalNot Estab.[facility] Comment on above:Performed By: #### CBC #### [facility] [address] [address] [address] Ashlie Jerome D 25-[place] LABCORPon 28-13-4060Wwqyjfw D, 25-Hydroxy<4.0 Critically low30.0-100.0The [facility] HospitalComment on above:Result Comment: Vitamin D deficiency has been defined by the [place] of [employer] and an Endocrine Society practice guideline as a level of serum 25-OH vitamin D less than 20 ng/mL (1,2). The Endocrine Society went on to further define vitamin D insufficiency as a level between 21 and 29 ng/mL (2). 1. IOM ([place] [employer]). 2010. Dietary reference intakes for calcium and D. [place]: The National Academies Press. 2. Lynda MF, Keely [place], Leandra LOPEZ, et al. Evaluation, treatment, and prevention of vitamin D deficiency: an Endocrine Society clinical practice guideline. JCEM. 2010; 96(7):1911-30.Performed By: #### CBC #### [facility] [address] [address] [address] Ashlie HillsGLYCOHEMOGLOBIN A1Con 65-39-8142CQB RECOMMENDATIONSEE BELOWNormal The [facility] HospitalComment on above:Result Comment: ADA RECOMMENDED LIMIT 4.0 - 6.0 ADA THERAPEUTIC TARGET < 7.0 ACTION SUGGESTED > 7.0Performed By: #### CVDAGS #### [facility] [address] [address] [address] Ashlie HillsGlucose [Mass/Vol]295 mg/dLNormalThe [facility] HospitalComment on above:Performed By: #### CVDAGS #### [facility] [address] [address] [address] Ashlie HillsHbA1c (Bld) [Mass fraction]11.9 %Critically high4.5-6.2The [facility] HospitalComment on above:Performed By: #### CVDAGS #### [facility] [address] [place] [address] Dr. Ashlie HillsHEMOGRAM AND PLATELon 18-20-3171Npgaryxjvi (Bld) [Volume fraction]56.3 %Critically high36.0-48.0[facility] HospitalComment on above: Performed By: #### CVDAGS #### [facility] [address] [place] [address] Dr. Ashlie HillsHemoglobin (Bld) [Mass/Vol]18.0 g/dLCritically high12.0-16.0The [facility] HospitalComment on above:Performed By: #### CVDAGS #### [facility] [address] [place] [address] Dr. Ashlie MckeonH (RBC) [Entitic mass]29.5 irGeaolj65.7-34.0The [facility] HospitalComment on above:Performed By: #### CVDAGS #### [facility] [address] [place] [address] Dr. Ashlie MckeonHC (RBC) [Mass/Vol]32.0 g/vOPzvfrn18.9-35.2The [facility] HospitalComment on above:Performed By: #### CVDAGS #### [facility] [address] [place] [address] Dr. Ashlie MckeonV (RBC) [Entitic vol]92.1 yZTzbuir92.0-99.0The [facility] HospitalComment on above:Performed By: #### CVDAGS #### [facility] [address] [place] [address] Dr. Ashlie HillsPLT123 103/ulCritically zxf264-897Rip [facility] HospitalComment on above:Performed By: #### CVDAGS #### [facility] [address] [place] [address] Dr. Ashlie HillsRBC6.11 106/ulCritically high4.20-5.40The [facility] Comment on above:Performed By: #### CVDAGS #### [facility] [address] [place] [address] Dr. Ashlie HillsWBC16.4 103/ulCritically high4.0-11.0[facility] HospitalComment on above:Performed By: #### CVDAGS #### [facility] [address] [place] [address] Dr. Ashlie OmerID PROFILEon 94-98-9185AFKU-HDL RATIO NORMSEE BELOWSelect Medical Specialty Hospital - YoungstownComment on above:Result Comment: 3.3 - 4.4 LOW RISK 4.4 - 7.1 AVERAGE RISK 7.1 - 11.0 MODERATE RISK >11.0 HIGH RISKPerformed By: #### CVDAGS #### [facility] [address] [place] [address] Dr. Ashlie Lopezesterol [Mass/Vol]159 mg/dLNormal<=200The [facility] Comment on above:Performed By: #### CVDAGS #### [facility] [address] [place] [address] Dr. Ashlie HillsCholesterol in HDL [Mass/Vol]40 mg/xBWdvraa23-46Quo [facility] HospitalComment on above:Performed By: #### CVDAGS #### [facility] [address] [place] [address] Dr. Ashlie HillsCholesterol in LDL [Mass/Vol]81.8 mg/dLSelect Medical Specialty Hospital - YoungstownComment on above:Performed By: #### CVDAGS #### [facility] [address] [place] [address] Dr. Ashlie Villa.total/Cholesterol in HDL [Mass ratio]4.0 {ratio} NormalThe [facility] HospitalComment on above:Performed By: #### CVDAGS #### [facility] [address] [place] [address] Dr. Ashlie Potts NORMAL> or = 60 mg/dl - LOW CARDIOVASCULAR RISK <40 mg/dl - HIGH CARDIOVASCULAR RISKSelect Medical Specialty Hospital - YoungstownComment on above:Performed By: #### CVDAGS #### [facility] [address] [place] [address] Dr. Ashlie Desai CALC NORMALSEE BELOWSelect Medical Specialty Hospital - YoungstownComment on above:Result Comment: <100 mg/dl OPTIMAL 100 - 129 mg/dl NEAR OR ABOVE OPTIMAL 130 - 159 mg/dl BORDERLINE HIGH 160 - 189 mg/dl HIGH >190 mg/dl VERY HIGH Performed By: #### CVDAGS #### [facility] [address] [place] [address] Dr. Ashlie HillsTriglyceride [Mass/Vol]186 mg/dLCritically high<=150The [facility] HospitalComment on above:Performed By: #### CVDAGS #### [facility] [address] [address] [address] Ashlie HillsVLDL CALC37.2 mg/dLSelect Medical Specialty Hospital - YoungstownComment on above: Performed By: #### CVDAGS #### [facility] [address] [place] [address] Dr. Ashlie HillsRENCHAUNCEY FUNCTION PANELon 73-23-6558Xrlrocn [Mass/Vol]3.1 g/dL Critically low3.4-5.0[facility] HospitalComment on above:Performed By: #### CBC #### [facility] [address] [place] [address] Dr. Ashlie HillsCalcium [Mass/Vol]9.2 mg/dLNormal8.5-10.1[facility] Comment on above:Performed By: #### CBC #### [facility] [address] [place] [address] Dr. Ashlie HillsChloride [Moles/Vol]102 mmol/WYbbqlw76-766Ujq [facility] Comment on above:Performed By: #### CBC #### [facility] [facility] [address] [address] [address] Ashlie HillsCO2 [Moles/Vol]31.9 mmol/ZYomdbb80.0-32.0[facility] Comment on above:Performed By: #### CBC #### [facility] [address] [place] [address] Dr. Ashlie HillsCreatinine [Mass/Vol]0.68 mg/dLNormal0.55-1.02[facility] HospitalComment on above:Performed By: #### CBC #### [facility] [address] [address] [address] Ashlie GrahamGFR-AF KOSOVAN>60Normal>=60[facility] HospitalComment on above:Performed By: #### CBC #### [facility] [address] [address] [address] Ashlie GrahamGFR-NON AF KOSOVAN>60Normal>=60[facility] HospitalComment on above:Performed By: #### CBC #### [facility] [address] [address] [address] Ashlie HillsGlucose [Mass/Vol]131 mg/dLCritically szmj67-820Sak [facility] HospitalComment on above:Performed By: #### CBC #### [facility] [address] [address] [address] Ashlie HillsPhosphate [Mass/Vol]4.0 mg/dLNormal2.6-4.7The [facility] Comment on above:Performed By: #### CBC #### [facility] [address] [address] [address] Ashlie HillsPotassium [Moles/Vol]4.0 mmol/LNormal3.5-5.1[facility] Comment on above:Performed By: #### CBC #### [facility] [address] [address] [address] Ashlie HillsSodium [Moles/Vol]141 mmol/ULitneh696-199Juw [facility] Comment on above:Performed By: #### CBC #### [facility] [address] [address] [address] Ashlie HillsUrea nitrogen [Mass/Vol]17.0 mg/dLNormal7.0-18.0[facility] HospitalComment on above:Performed By: #### CBC #### [facility] [address] [address] [address] Ashlie Vaughn RANDOM W/MICROSCOPICon 99-35-0549ZQVDIFZKZVBR SEENNormalNONE SEENThe [facility] HospitalComment on above:Performed By: #### INFLUAB #### [facility] [address] [address] [address] Ashlie HillsBilirubin Ql (U)NegativeNormalNEGParma Community General Hospital Comment on above:Performed By: #### INFLUAB #### [facility] [address] [address] [address] Ashlie HillsCASTNONE SEENNormalNONE SEENLancaster Municipal HospitalComment on above:Performed By: #### INFLUAB #### [facility] [address] [address] [address] Ashlie HillsClarity (U)CLEARNormalCLEARLancaster Municipal HospitalComment on above: Performed By: #### INFLUAB #### [facility] [address] [address] [address] Ashlie HillsColor (U)YELLOWNormalYELLOWLancaster Municipal HospitalComment on above: Performed By: #### INFLUAB #### [facility] [address] [address] [address] Ashlie HillsCrystals LM Nom (Urine sed)NONE SEENNormalNONE SEENLancaster Municipal HospitalComment on above:Performed By: #### INFLUAB #### [facility] [address] [address] [address] Dailey ChangEpithelial cells LM Ql (Urine sed)FEWAbnormalNONE SEEN /RARELancaster Municipal HospitalComment on above:Performed By: #### INFLUAB #### [facility] [address] [address] [address] Ashlie HillsGlucose Ql (U)NegativeNormalNEGATIVELancaster Municipal HospitalComment on above:Performed By: #### INFLUAB #### [facility] [address] [place] [address] Dr. Ashlie HillsHemoglobin Ql (U)NegativeNormalNEGParma Community General Hospital Comment on above:Performed By: #### INFLUAB #### [facility] [address] [address] [address] Ashlie HillsKetones Ql (U)NegativeNormalNEGATIVEUniversity Hospitals Tripoint [facility] Center [facility] HospitalComment on above:Performed By: #### INFLUAB #### [facility] [address] [address] [address] Ashlie HillsLEUKOCYTESNegativeNormalNEGATIVEThe [facility] HospitalComment on above:Performed By: #### INFLUAB #### [facility] [address] [place] [address] Dr. Ashlie HillsMUCOUSNONE SEENNormalNONE SEENThe [facility] HospitalComment on above:Performed By: #### INFLUAB #### [facility] [address] [place] [address] Dr. Ashlie HillsNitrite Ql (U)NegativeNormalNEGATIVEThe [facility] HospitalComment on above:Performed By: #### INFLUAB #### [facility] [address] [place] [address] Dr. Ashlie HillspH (U)5.5 [pH]Normal5-9The [facility] HospitalComment on above: Performed By: #### INFLUAB #### [facility] [address] [place] [address] Dr. Ashlie HillsKotvhCCD5-9Shbxmm8-5Yfp [facility] on above:Performed By: #### INFLUAB #### [facility] [address] [place] [address] Dr. Ashlie HillsSPEC GRAVITY>=1.915Fctbjdob7.005-<=1.025The [facility] Comment on above:Performed By: #### INFLUAB #### [facility] [address] [place] [address] Dr. Ashlie Vaughn BXJFSHZ333 mg/dlAbnormalNEGATIVE/ TRACEThe [facility] Comment on above:Performed By: #### INFLUAB #### [facility] [address] [place] [address] Dr. Ashlie Pandyainogen Qn (U)0.2 {Little'U}/dLNormal0.2 - 1.0[facility] HospitalComment on above:Performed By: #### INFLUAB #### [facility] [address] [address] [address] Ashlie BhaktaBCNONTracey SEENNormalNONE SEENThe [facility] HospitalComment on above: Performed By: #### INFLUAB #### [facility] [address] [place] [address] Dr. Ashlie Christine ACID SERUMon [id number] [Mass/Vol]5.0 mg/dLNormal 2.6-6.0The [facility] HospitalComment on above:Performed By: #### INFLUAB #### [facility] [address] [place] [address] Dr. Ashlie Recinos T PROTEIN CREAT RATIOon 24-23-0785Rqjpddl (U) [Mass/Vol] 77.9 mg/dLCritically high<=12.0[facility] HospitalComment on above:Performed By: #### CVDAGS #### [facility] [address] [place] [address] Dr. Ashlie Sullivan PROT CREAT RAT0.44NormalThe [facility] HospitalComment on above: Performed By: #### CVDAGS #### [facility] [address] [place] [address] Dr. Ashlie Recinos TVIMT222.15 mg/gSGyqfuq82.00-300.00The [facility] Comment on above:Performed By: #### CVDAGS #### [facility] [address] [place] [address] Dr. Ashlie HillsCULTURE URINEon [id number] URINECulture Observations: GREATER THAN TWO ORGANISMS PRESENT, HEAVILY MIXED. PLEASE RESUBMIT CLEAN CATCH MID-STREAM URINE IF CLINICALLY INDICATED.NormalThe [facility] HospitalComment on above:Performed By: #### INFLUAB #### [facility] [address] [place] [address] Dr. Ashlie VernonC AUTO DIFFon [id number] #0.1 103/ulNormal0.0-0.1The [facility] HospitalComment on above:Performed By: #### CBC #### [facility] [address] [place] [address] Dr. Ashlie HillsBasophils/100 WBC (Bld)0.5 %Normal0.2-2.0The [facility] Comment on above:Performed By: #### CBC #### [facility] [address] [address] [address] Ashlie Mcintosh #0.4 103/ulNormal0.0-0.7The [facility] HospitalComment on above: Performed By: #### CBC #### [facility] [address] [address] [address] Ashlie Grahamosinophils/100 WBC (Bld)2.4 %Normal0.9-7.0[facility] Comment on above:Performed By: #### CBC #### [facility] [address] [place] [address] Dr. Ashlie Grahamrythrocyte distribution width (RBC) [Ratio]14.1 %Immaxx43.0-15.0 [facility] HospitalComment on above:Performed By: #### CBC #### [facility] [address] [place] [address] Dr. Ashlie HillsHematocrit (Bld) [Volume fraction]55.9 %Critically high36.0-48.0 [facility] HospitalComment on above:Performed By: #### CBC #### [facility] [address] [place] [address] Dr. Ashlie HillsHemoglobin (Bld) [Mass/Vol]17.9 g/dLCritically high12.0-16.0[facility] HospitalComment on above:Performed By: #### CBC #### [facility] [address] [place] [address] Dr. Ashile Hunter #0.06 10e3/ulCritically high0.00-0.03The [facility] Comment on above:Performed By: #### CBC #### [facility] [address] [address] [address] Ashlie Hunter %0.4 %Normal0.0-0.5The [facility] HospitalComment on above: Performed By: #### CBC #### [facility] [address] [address] [address] Ashlie Swenson #5.8 103/ulCritically high1.2-3.8The [facility] Comment on above:Performed By: #### CBC #### [facility] [address] [address] [address] Ashlie Jademphocytes/100 WBC (Bld)35.4 %Bggsly89.5-60.0[facility] HospitalComment on above:Performed By: #### CBC #### [facility] [address] [place] [address] Dr. Ashlie Marie DIFF REQNONormalThe [facility] HospitalComment on above: Performed By: #### CBC #### [facility] [address] [place] [address] Dr. Ashlie Mckeon (RBC) [Entitic mass]29.4 mmWfpdvk97.7-34.0[facility] HospitalComment on above:Performed By: #### CBC #### [facility] [address] [place] [address] Dr. Ashlie Mckeon (RBC) [Mass/Vol]32.0 g/qTUwbnod55.9-35.2[facility] HospitalComment on above:Performed By: #### CBC #### [facility] [address] [place] [address] Dr. Ashlie Mckeon (RBC) [Entitic vol]91.8 lHOvepsy13.0-99.0[facility] HospitalComment on above:Performed By: #### CBC #### [facility] [address] [place] [address] Dr. Ashlie Killian #0.8 103/ulNormal0.3-0.8The [facility] HospitalComment on above:Performed By: #### CBC #### [facility] [address] [place] [address] Dr. Ashlie Palominoocytes/100 WBC (Bld)4.8 %Normal1.7-12.0[facility] Comment on above:Performed By: #### CBC #### [facility] [address] [address] [address] Ashlie SteinUT #9.3 103/ulCritically high1.4-6.5The [facility] Comment on above:Performed By: #### CBC #### [facility] [address] [address] [address] Ashlie Steinutrophils/100 WBC (Bld)56.5 %Xqzzxp09.0-75.0[facility] HospitalComment on above:Performed By: #### CBC #### [facility] [address] [address] [address] Ashlie Lantigualet mean volume (Bld) [Entitic vol]12.9 fLNormal9.5-13.5The [facility] HospitalComment on above:Performed By: #### CBC #### [facility] [address] [place] [address] Dr. Ashlie HillsPLT127 103/ulCritically sfk257-422Dio [facility] HospitalComment on above:Performed By: #### CBC #### [facility] [address] [address] [address] Ashlie HillsRBC6.09 106/ulCritically high4.20-5.40The [facility] Comment on above:Performed By: #### CBC #### [facility] [address] [address] [address] Ashlie HillsWBC16.4 103/ulCritically high4.0-11.0[facility] HospitalComment on above:Performed By: #### CBC #### [facility] [address] [place] [address] Dr. Ashlie HillsCT ABD/PELVIS WO CONon [id number] ABD/PELVIS WO CON Begin Addendum #1 Mildly [...] without diverticulitis. Severe right hip degenerative change.NormalThe [facility] URINE PROFILEon 40-28-8497Zuiplzinu Ql (U) NegativeNormalNEGATIVELancaster Municipal HospitalComment on above:Performed By: #### ERUR, UMICRO #### [facility] [address] [address] [address] Ashlie Chilel (U)CLEARNormalCLEARLancaster Municipal HospitalComment on above: Performed By: #### ERUR, UMICRO #### [facility] [address] [address] [address] Ashlie Roberts (U)DK. ORANGEAbnormalYELLOWLancaster Municipal HospitalComment on above:Performed By: #### ERUR, UMICRO #### [facility] [address] [address] [address] Ashlie Clayton micrscopic examination will be performed if indicated. NormalLancaster Municipal HospitalComment on above:Performed By: #### OBED, UMICRO #### [facility] [address] [address] [address] Ashlie HillsGlucose Ql (U)250 mg/dlAbnormalWyandot Memorial Hospital Comment on above:Performed By: #### KRISTINAR, UMICRO #### [facility] [address] [address] [address] Ashlie HillsHemoglobin Ql (U)Formerly [facility] Duplin HospitalrmalNEGParma Community General Hospital Comment on above:Performed By: #### ERUR, UMICRO #### [facility] [address] [address] [address] Ashlie HillsKetones Ql (U)NegativeNormalNEGATIVELancaster Municipal HospitalComment on above:Performed By: #### ERUR, UMICRO #### [facility] [address] [address] [address] Ashlie HillsLEUKOCYTESNegativeNormalNEGParma Community General HospitalComment on above:Performed By: #### ERUR, UMICRO #### [facility] [address] [address] [address] Ashlie HillsNitrite Ql (U)NegativeNormalNEGATIVELancaster Municipal HospitalComment on above:Performed By: #### ERUR, UMICRO #### [facility] [address] [place] [address] Dr. Ashlie HillspH (U)5.0 [pH]Normal5-9The [facility] HospitalComment on above: Performed By: #### OBED UMICRO #### [facility] [address] [place] [address] Dr. Ashlie HillsProtein (U) [Mass/Vol]100 mg/dLAbnormalNEGATIVE/ TRACEThe [facility] HospitalComment on above:Performed By: #### OBED UMICRO #### [facility] [address] [place] [address] Dr. Ashlie HillsSPEC GRAVITY>=1.382Gaztwdrv9.005-<=1.025The [facility] Comment on above:Performed By: #### OBED UMICRO #### [facility] [address] [place] [address] Dr. Ashlie HillsUR MICRO INDINDICATEDNormalThe [facility] HospitalComment on above: Performed By: #### OBED UMICRO #### [facility] [address] [place] [address] Dr. Ashlie Metzbilinogen Qn (U)1.0 {Little'U}/dLNormal0.2 - 1.0The [facility] HospitalComment on above:Performed By: #### OBED UMICRO #### [facility] [address] [place] [address] Dr. Ashlie HillsPROF CHEM 8 (BAS METB)on 31-46-3274Cshdg gap [Moles/Vol]12.1 mmol/LNormalThe [facility] HospitalComment on above:Performed By: #### INFLUAB #### [facility] [address] [place] [address] Dr. Ashlie HillsCalcium [Mass/Vol]9.0 mg/dLNormal8.5-10.1[facility] Comment on above:Performed By: #### INFLUAB #### [facility] [address] [place] [address] Dr. Ashlie HillsChloride [Moles/Vol]101 mmol/OEjrjli60-818Ylg [facility] Comment on above:Performed By: #### INFLUAB #### [facility] [address] [place] [address] Dr. Ashlie HillsCO2 [Moles/Vol]29.1 mmol/AOlfadh01.0-32.0The [facility] Comment on above:Performed By: #### INFLUAB #### [facility] [address] [address] [address] Ashlie HillsCreatinine [Mass/Vol]0.86 mg/dLNormal0.55-1.02The [facility] HospitalComment on above:Performed By: #### INFLUAB #### [facility] [address] [place] [address] Dr. Dailey ChangEGFR-AF KOSOVAN>60Normal>=60The [facility] HospitalComment on above:Performed By: #### INFLUAB #### [facility] [address] [place] [address] Dr. Ashlie GrahamGFR-NON AF KOSOVAN>60Normal>=60The [facility] HospitalComment on above:Performed By: #### INFLUAB #### [facility] [address] [place] [address] Dr. Ashlie HillsGlucose [Mass/Vol]236 mg/dLCritically xeor07-832Pds [facility] HospitalComment on above:Performed By: #### INFLUAB #### [facility] [address] [place] [address] Dr. Ashlie HillsPotassium [Moles/Vol]4.2 mmol/LNormal3.5-5.1The [facility] Comment on above:Performed By: #### INFLUAB #### [facility] [address] [place] [address] Dr. Ashlie HillsSodium [Moles/Vol]138 mmol/UNufzjb494-477Sbq [facility] Comment on above:Performed By: #### INFLUAB #### [facility] [address] [place] [address] Dr. Ashlie HillsUrea nitrogen [Mass/Vol]11.0 mg/dLNormal7.0-18.0[facility] HospitalComment on above:Performed By: #### INFLUAB #### [facility] [address] [place] [address] Dr. Ashlie Jones nitrogen/Creatinine [Mass ratio]12.8 mg/mgNoUniversity Hospitals Health SystemComment on above:Performed By: #### INFLUAB #### [facility] [address] [place] [address] Dr. Ashlie Recinos MICROSCOPIC ONLYon [id number]Y SEEN [facility] HospitalComcorewell health big [facility] on above:Performed By: #### MADELINE CLAYRO #### [facility] [address] [place] [address] Dr. Ashlie Cortez identified Cx Nom (U)INDICATEDSelect Medical Specialty Hospital - YoungstownComcorewell health big rapids hospital on above:Performed By: #### PEREZ CLAYICRO #### [facility] [address] [place] [address] Dr. Ashlie Thibodeaux SEENNormalNONE SEENLancaster Municipal HospitalComcorewell health big rapids hospital on above:Performed By: #### MADELINE CLAYRO #### [facility] [address] [place] [address] Dr. Ashlie Banegas LM Nom (Urine sed)NONE SEENNormalNONE SEENLancaster Municipal HospitalComcorewell health big rapids hospital on above:Performed By: #### OBED UMICRO #### [facility] [address] [place] [address] Dr. Dailey ChangEpithelial cells LM Ql (Urine sed)MODERATEAbnormalNONE SEEN /RARE [facility] HospitalComcorewell health big rapids hospital on above:Performed By: #### OBED UMICRO #### [facility] [address] [place] [address] Dr. Ashlie Guzman SEENNormalNONE SEENLancaster Municipal HospitalComcorewell health big rapids hospital on above:Performed By: #### OBED UMICRO #### [facility] [address] [place] [address] Dr. Ashlie HillsVuwjcUGQ2-6Amxefc5-7WflSelect Medical Specialty Hospital - Cantonment on above:Performed By: #### ERUR, UMICRO #### [facility] [address] [place] [address] Dr. Ashlie HillsWBC0-2AbnormalNONE SEENOhio Valley Hospital on above: Performed By: #### ERUR, UMICRO #### [facility] [address] [address] [address] Ashlie VelásquezASTPRESENTAbnormalNONE SEENSelect Medical Specialty Hospital - Cantonment on above:Performed By: #### ERUR, UMICRO #### [facility] [address] [address] [address] Ashlie Hutchinson RIGHT 1 OR 2 VWS WITH PELVISon [id number] RIGHT 1 OR [address] P[address] [facility] Department of Radiology [address] [place] [id number] Patient Name: MITZI MACIAS : 1970 Sex: F Age: Race: White Pt. Location: Patient Status: O Ordered Date: 07/20/2020 1:45:00 PM Completed Date: 07/20/2020 01:57 PM Requesting Provider: LIZ EISENBERG Attending Provider: LIZ EISENBERG Report Copy To: MCKAYLA BLAS Signs & Symptoms: M25.551 Pain in right hip I10 History: [place] Comments: evaluate Exam: HIP RIGHT 1 OR [...] MRI. Electronically signed: Pipo Acevedo. Transcribed by: [email or web address], User Resident: Electronically Signed by: PIPO ACEVEDO @ 07/20/2020 03:45 The Metro[facility] SystemComment on above:Order Comment: evaluate Vital Signs Date TimeVital SignValuePerforming ErvruxjjxMtvxyhdo93-19-0033 17:58-0400Body wakekj455.1 cmLisa Aichholz [employer] Work Phone: [phone] [place], [place] 3332510-22-2025 17:58-0400 Body mass index (BMI) [Ratio]61 kg/m2Lisa Aichholz [employer] Work Phone: [phone]10-22-2025 17:58-0400 Body .1 [degF]Mckayla Aichholz [employer] Work Phone: [phone]10-22-2025 17:58-0400 Body zipydt244.18 kgLisa Aichholz [employer] Work Phone: [phone] [place], [place] 3882810-22-2025 17:58-0400 Diastolic blood knpowvvv65 mm[Hg]Mckayla Aichholz [employer] Work Phone: [phone] [place], [place] 3882810-22-2025 17:58-0400 Heart rate84 /minLisa Aichholz [employer] Work Phone: [phone]10-22-2025 17:58-0400 Respiratory rate20 /minLisa Aichholz [employer] Work Phone: [phone] [place], [place] 3882810-22-2025 17:58-0400 SaO2% (BldA) [Mass fraction]90 %Mckayla Aichholz [employer] Work Phone: [phone]10-22-2025 17:58-0400 Systolic blood cfjlykio897 mm[Hg]Mckayla Aichholz [employer] Work Phone: [phone]09-29-2025 15:37-0400 Body wvaxqbvwmgj19.1 [degF]Mckayla Aichholz [employer] Work Phone: [phone]09-29-2025 15:37-0400 Diastolic blood gapqfbwg97 mm[Hg]Mckayla Aichholz WEB PRODUCER-C Work Phone: [phone]09-29-2025 15:37-0400 Heart rate81 /minLisa Aichholz WEB PRODUCER-C Work Phone: [phone] [place], [place] 3332509-29-2025 15:37-0400 Respiratory rate20 /minLisa Aichholz WEB PRODUCER-C Work Phone: [phone]09-29-2025 15:37-0400 SaO2% (BldA) [Mass fraction]92 %Mckayla Aichholz WEB PRODUCER-C Work Phone: [phone]09-29-2025 15:37-0400 Systolic blood ajyawipy389 mm[Hg]Mckayla Aichholz WEB PRODUCER-C Work Phone: [phone])[address]07-24-2025 09:48-0400 Body .2 Reji Souza MD Work Phone: [facility] HospitalMcdzbzmtao80-30-6381 09:48-0400Body mass index (BMI) [Ratio]56.38 kg/h7VwbneRain Souza MD Work Phone: noP[facility] HealthNngvcucuqb32-28-8729 09:48-0400Body .29 kgRain Souza MD Work Phone: [facility] HospitalVndlosgsoq68-03-8210 09:48-0400Diastolic blood flgynsuu24 mm[Hg]Rain Souza MD Work Phone: [facility] HospitalEzhwfynzld68-27-8347 09:48-0400Heart rate72 /min Rain Souza MD Work Phone: [facility] HospitalIpzahkohxf03-96-8327 09:48-0400Respiratory rate16 /minRain Souza MD Work Phone: [facility] HospitalBbyntowhhs68-30-6630 09:48-8227EwP0% (BldA) [Mass fraction]84 %Rain Souza MD Work Phone: [facility] HospitalEqwkuziiku41-07-7828 09:48-0400Systolic blood qpkgjeue637 mm[Hg]Rain Souza MD Work Phone: [facility] HospitalMlwuruyyag80-99-7541 18:11-0400Body mass index (BMI) [Ratio]58.64 kg/m2Lisa Wan WEB PRODUCER Work Phone: [facility] HospitalQzyivcicut22-64-3396 18:11-0400Body temperature 98.49 [degF]Mckayla Wan WEB PRODUCER Work Phone: [facility] HospitalBkydcxsppg11-86-5464 18:11-0400Body ljuuvl134.83 kgLisa Juanjosehmariyaz WEB PRODUCER Work Phone: [facility] HospitalYcrclngbnf64-26-2467 18:11-0400Diastolic blood mndncqhe86 mm[Hg]Mckayla Chetz WEB PRODUCER Work Phone: [facility] HospitalBtobfngbub82-57-1503 18:11-0400Heart rate81 /min Mckayla Chetz WEB PRODUCER Work Phone: [place] [address]Qgzywmezeo58-08-6735 18:11-0400Respiratory rate20 /minLisa Chetz WEB PRODUCER Work Phone: [place] [address]Ifehqnkzbx57-44-9368 18:11-6350VpN8% (BldA) [Mass fraction]90 %Mckayla Chetz WEB PRODUCER Work Phone: [facility] HospitalVbtfycmlbq13-85-1973 18:11-0400Systolic blood uyfsocsb936 mm[Hg]Mckayla Rosenbergz WEB PRODUCER Work Phone: [facility] HospitalKfzgztfrjy29-61-4309 10:19-0400Body temperature 98.01 [degF]Mckayla Harshadholz WEB PRODUCER Work Phone: [facility] HospitalYipkgurtsa68-98-3540 10:19-0400Diastolic blood zrujuyik14 mm[Hg]Mckayla Harshadholz WEB PRODUCER Work Phone: [facility] HospitalCxgsybclwe67-93-6726 10:19-0400Heart rate71 /min Mckayla Chetz WEB PRODUCER Work Phone: [facility] HospitalDclrwvdtvs44-35-1178 10:19-0400Respiratory rate20 /minLisa Patriciaholz WEB PRODUCER Work Phone: [facility] HospitalUcaunrmpfu71-15-3646 10:19-0275WdD0% (BldA) [Mass fraction]88 %Mckayla Rosenbergz WEB PRODUCER Work Phone: [facility] HospitalDqrfoxiipf23-36-7093 10:19-0Systolic blood dpujvfmy245 mm[Hg]Mckayla Rosenbergz WEB PRODUCER Work Phone: [facility] HospitalDcejzevgsp25-81-7001 14:11-0400Body qgnodb805.2 Brianisa Harshadholz WEB PRODUCER Work Phone: [facility] HospitalXpwdsxbjjk16-49-5429 14:11-0400Body mass index (BMI) [Ratio]56.51 kg/m2Lisa Harshadholz WEB PRODUCER Work Phone: [facility] HospitalTeuppeqrou60-77-4523 14:11-0400Body temperature 98.71 [degF]Mckayla Patriciaholz WEB PRODUCER Work Phone: [facility] HospitalAefrllalga11-66-2229 14:11-0400Body holnuc432.66 kgLisa Juanjosehholz WEB PRODUCER Work Phone: [facility] HospitalQsezebkaqa97-83-9589 14:11-0400Diastolic blood ryretsfk88 mm[Hg]Mckayla Blas WEB PRODUCER Work Phone: [facility] HospitalAtyuafgtrh91-79-6853 14:11-0400Heart rate75 /min Mckayla Blas WEB PRODUCER Work Phone: noPhelps HealthIujeuxesda52-53-1295 14:11-0400Respiratory rate18 /minLisa Blas WEB PRODUCER Work Phone: noPhelps HealthNfglpvhqvt46-55-0519 14:11-9511PtI4% (BldA) [Mass fraction]90 %Mckayla Blas WEB PRODUCER Work Phone: [facility] HospitalBtjuywzxtl44-42-2568 14:11-0400Systolic blood jqagvqid021 mm[Hg]Mckayla Blas WEB PRODUCER Work Phone: [facility] HospitalAcopcxrlfn18-11-2584 11:21-0400Body pwfijm689.2 Reji Souza MD Work Phone: [facility] HospitalZbxmmbqurw45-45-4239 11:21-0400Body mass index (BMI) [Ratio]55.91 kg/v7EmijdRain Souza MD Work Phone: [phone] HospitalTggvklxgyb77-43-5706 11:21-0400Body hwlwup278.93 kgRain Souza MD Work Phone: [facility] HospitalLttoxqcegp07-77-1711 11:21-0400Diastolic blood dchjpmit82 mm[Hg]Rain Souza MD Work Phone: [facility] HospitalFtpjnugmti67-54-2061 11:21-0400Heart rate70 /min Rain Souza MD Work Phone: [facility] HospitalTppstyynzy85-24-7347 11:21-0400Respiratory rate16 /minRain Souza MD Work Phone: [facility] HospitalDzkbodxljo22-79-1768 11:21-9850OiQ8% (BldA) [Mass fraction]91 %Rain Souza MD Work Phone: [facility] HospitalCvfuifvdur06-44-0329 11:21-0400Systolic blood gndctila407 mm[Hg]Rain Souza MD Work Phone: noPhelps HealthGtrtekwlcu05-49-4989 17:44-0500Body mass index (BMI) [Ratio]57.31 kg/m2Mckayla Blas WEB PRODUCER Work Phone: noPhelps HealthVtbqhjuikv34-55-4910 17:44-0500Body temperature 98.01 [degF]Mckaylajuveanl Blas WEB PRODUCER Work Phone: [facility] HospitalMqfkxubsdb91-70-5766 17:44-0500Body qymbvk885.97 kgMaria De Jesus Wan WEB PRODUCER Work Phone: [facility] HospitalEnhzmiyitb76-32-3593 17:44-0500Diastolic blood edebowpc52 mm[Hg]Mckayla Wan WEB PRODUCER Work Phone: [facility] HospitalQsidgtzscz48-62-1290 17:44-0500Heart rate83 /min Mckaylajuvenal Blas WEB PRODUCER Work Phone: [facility] HospitalOeztkngeqq16-75-8891 17:44-0500Respiratory rate18 /minLi Wan WEB PRODUCER Work Phone: [facility] HospitalOkugyglipx70-07-5193 17:44-2351SdC8% (BldA) [Mass fraction]91 %Mckayla Wan WEB PRODUCER Work Phone: [facility] HospitalOjhroealpg33-03-1708 17:44-0500Systolic blood xqrqznem480 mm[Hg]Mckaylajuvenal Blas WEB PRODUCER Work Phone: [facility] HospitalEsmjplzyye32-86-3007 10:00-0500Blood Pressure LocationPatricezra ARAUZ [facility] [place] 388722-04-2024 10:00-0500Diastolic blood uppvqcos03 mm[Hg]Elbert ARAUZ [facility] [place] 388722-04-2024 10:00-0500Heart rate76 /minPatrick ARAUZ [facility]04-2024 10:00-0500Systolic blood pyjwiohv805 mm[Hg]Elbert ARAUZ [facility] [place] 963841-19-2024 10:20-0500Body gzbhyl090.2 Reji Souza MD Work Phone: [address] [place], [place] [address]Diafgzagvt26-18-7810 10:20-0500Body mass index (BMI) [Ratio]56.7 kg/n7ZkclwRain Souza MD Work Phone: [facility] HospitalBmwksgfxsw05-01-0119 10:20-0500Body kuzftx941.2 kgRain Souza MD Work Phone: [facility] HospitalGcztlkgvfs46-64-9491 10:20-0500Diastolic blood xodrwuzl20 mm[Hg]Rain Souza MD Work Phone: [phone] [place], [place] [address]Vlzlpqkkxl30-14-1150 10:20-0500Heart rate72 /min Rain Souza MD Work Phone: [place] [address]Uqfjljfdpw00-27-1794 10:20-0500Respiratory rate16 /minRain Souza MD Work Phone: [place] [address]Qcogvnwzhr96-29-6182 10:20-0500Systolic blood mymgjdcy575 mm[Hg]Rain Souza MD Work Phone: [facility] HospitalUacfpbkqlp73-93-5398 10:27-0400Body kgdunl565.1 Jamal Blas WEB PRODUCER Work Phone: [facility] HospitalVgvhdtcupg22-15-6681 10:27-0400Body mass index (BMI) [Ratio]61.01 kg/m2Mckayla Blas WEB PRODUCER Work Phone: [facility] HospitalWjvwnnsren14-27-7776 10:27-0400Body temperature 98.49 [degF]Mckayla Blas WEB PRODUCER Work Phone: [facility] HospitalStekvtswsz46-90-3082 10:27-0400Body .29 kgMckayla Blas WEB PRODUCER Work Phone: [facility] HospitalQbmctmkzga85-60-7857 10:27-0400Diastolic blood mbhjvojp45 mm[Hg]Mckayla Blas WEB PRODUCER Work Phone: [facility] HospitalVkhuvritec94-62-1631 10:27-0400Heart rate77 /min Mckayla Blas WEB PRODUCER Work Phone: [facility] HospitalQwnnglcstp75-73-8371 10:27-0400Respiratory rate19 /minMckayla Blas WEB PRODUCER Work Phone: [facility] HospitalDudvhwaklp75-64-4974 10:27-2599XhZ9% (BldA) [Mass fraction]92 %Mckayla Blas WEB PRODUCER Work Phone: noPhelps HealthGgtvlvrqgf56-77-4618 10:27-0400Systolic blood hdqixtkn948 mm[Hg]Mckayla Blas WEB PRODUCER Work Phone: [facility] HospitalMjwspvgcpl12-84-1850 15:00-0400Body nuhxwo147.18 cmAbdul Tico Other [facility] [employer] Other 902526-04-4363 15:00-0400Body yvljtbdcwqj31.6 [degF]Stephanie Tico Other [place] [employer] Other 865111-90-1835 15:00-0400Diastolic blood hgyujmlw88 mm[Hg] Stephanie Tico Other [employer] Other 08-31-2022 15:00-0400Respiratory rate20 /minAbdul Tico Other [employer] Other 08-31-2022 15:00-2944MvY8% (BldA) [Mass fraction]91 % Stephanie Tico Other [employer] Other 08-31-2022 15:00-0400Systolic blood bnbypirv219 mm[Hg] Stephanie Tico [facility] [employer] Other 08-15-2022 09:20-0400Body syfwng589.18 cmAbdul Tico Other [place] [employer] Other 08-15-2022 09:20-0400Body zzogbuvfvwp15.5 [degF]Stephanie Tico Other [place] [employer] Other 08-15-2022 09:20-0400Diastolic blood qvdzirhq41 mm[Hg] Stephanie Tico Other [employer] Other 08-15-2022 09:20-0400Respiratory rate20 /minAbdul Tico Other [place] [employer] Other 08-15-2022 09:20-8783WxC6% (BldA) [Mass fraction]91 % Stephanie Tico Other [place] [employer] Other 08-15-2022 09:20-0400Systolic blood hyfitcmg851 mm[Hg] Stephanie Tico Other [employer] Other 08-01-2022 10:24-0400Blood Pressure LocationElbert REGLA [facility] 08-01-2022 10:24-0400Diastolic blood hsalfdvg41 mm[Hg] Elbert ARAUZ [facility] 08-01-2022 10:24-0400Heart rate70 /minPatrick ARAUZ [facility] 08-01-2022 10:24-0400Respiratory rate16 /minPatrick REGLA [facility] 08-01-2022 10:24-0400Systolic blood cropgnrz302 mm[Hg] Elbert ARAUZ [facility] Encounters Encounter DateEncounter TypeCare ProviderFacilityStart: 47-01-9065xrszuanpfetoo Urias DPMFacility:Ortho/Sport MedStart: 04-29-2025 End: 39-29-8051cipvstfqoqWlntCarol Blas NP-C Work Phone: -[facility] ClydeStart: 04-29-2025 End: 04-35-6863Llvnbeq encounter procedureMckayla Blas NP-C-[facility] [place] Work Phone: Start: 04-23-2025 End: 34-61-2962lhptvemllaZlgyvnlAlma Kellogg MDFacility:[facility] Start: 04-17-2025 End: 15-09-7690azldqlwddgWwlo Jo Aichholz COREMAKER FLOOR-CNPFacility:[facility] Hospitaltart: 04-06-2025 End: 91-42-9603sevbvlveteKbnkCarol Blas NP-C Work Phone: [facility] Work Phone: Start: 04-06-2025 End: 51-13-0028Qqcyvhr encounter procedureMckayla Blas NP-C-[facility] [place] Work Phone: Start: 22-52-7943Xdhvizh encounter procedureMckayla Blas WEB PRODUCER-C Work Phone: [facility] Hospitaltart: 69-68-7566Xky- patient / Non-visitFlynn Urias DPM-[facility] Work Phone: Start: 86-37-9684Frb-patient / Non-visitPrice Ramsey DO-[facility] Work Phone: Start: 06-10-0198dfeqmknbjfEricza Nas Rojas COREMAKER FLOOR-[employer] [facility]Start: 03-23-2025 End: 29-11-1785ijkpedzeyjXapzo Jon Johnson DPMFacility:[facility] Start: 03-11-2025 End: 52-78-1628cuehxnvfhkCnlmz Huey Urias DPMFacility: [facility]trStart: 03-09-2025 End: 81-87-7651MdzymoJmke Aichholz WEB PRODUCER Work Phone: no[facility] FMComment on above:Tobacco user; Encounter for smoking cessation counselingStart: 01-29-2025 End: 33-27-1143Ekuorh Jack Souza MD Work Phone: noms ENDOCRINOLOGYStart: 01-29-2025 End: 78-35-8055Xokrufashley Sozua MD Work Phone: noms ENDOCRINOLOGYStart: 01-29-2025 End: 83-62-8412Qhkbmvnzx Result EncounterGeneric External Data ProviderNOMS External Department UnsolicitedStart: 01-29-2025 End: 45-73-8914lnraqlgwstMOESN F SABBAGHNot AvailableStart: 01-29-2025 End: 23-75-5589Usjxzy outpatient visit 25 minutesRain Souza MD Work [...] index (BMI) of50.0 to 59.9 in adult ([facility])Start: 01-26-2025 End: 53-71-4895vgjmtffmksXVHS AICHHOLZNot AvailableStart: 01-26-2025 End: 33-65-5977Cksxnjt encounter Marcela Blas NP Work Phone: noms CW FMComment on above:Encounter for subsequent annual wellness visit (AWV) in Medicare patient (Primary Dx); Mixed hyperlipidemia ; Type 2 diabetes mellitus with complication, with long-term current use of insulin ([facility]); Bilateral lower extremity edema; Gastro-esophageal reflux disease without esophagitis; Chronic diastolic heart failure ([facility]); Primary hypertension ; Pulmonary hypertension ([facility]); Diabetic polyneuropathy associated with type 2 diabetes mellitus ([facility]); Pulmonary emphysema, unspecified emphysema type ([facility]); Moderate persistent asthma without complication ([facility]); Insomnia; Non-seasonal allergic rhinitis, unspecified trigger; Type 2 diabetes mellitus with unspecified complications ([facility]); Anxiety and depression ; Antibiotic-induced yeast infection; Chronic obstructive pulmonary disease, unspecified (HCC); Hyperlipidemia, unspecified ; Vaginal yeast infection; Morbid (severe) obesity due to excess calories ([facility])Start: 01-06-2025 End: 13-03-6500fjnxfdbgrlEBYSKAITriHealth Bethesda Butler Hospitaltart: 12-18-2024 End: 43-11-2420GkryoqSbuq Aichholz WEB PRODUCER Work Phone: noms CW FMComment on above:Hyperlipidemia, unspecified ; Tobacco user; Encounter for smoking cessation counselingStart: 12-09-2024 End: 87-78-8831Zivnvbashley Blas WEB PRODUCER Work Phone: noms CWM FMStart: 12-09-2024 End: 01-98-7994Iikhwjyousif Blas NP Work Phone: noms CWM FMStart: 12-09-2024 End: 38-85-6153hmbkqkfbjhKYWA AICHHOLZNot AvailableStart: 12-09-2024 End: 02-96-2532Lurjau outpatient visit 25 minutesMckayla Blas WEB PRODUCER Work Phone: noms [facility] FMComment on above:Cellulitis of left lower extremity (Primary Dx); COPD exacerbation (CMS/HCC); Primary hypertension (CMS/HCC); Pulmonary hypertension (CMS/HCC); Morbid (severe) obesity due to excess calories ([facility]); Type 2 diabetes mellitus with complication, with long-term current use of insulin ([facility]/HCC); Anxiety and depression ([facility]); Fever, unspecified fever causeStart: 12-04-2024 End: 31-60-2505Csowrjbzy Result EncounterGeneric External Data ProviderNOAR External Department UnsolicitedStart: 12-04-2024 End: 26-89-3988Cxaeonzdv Result EncounterGeneric External Data ProviderNOAR External Department UnsolicitedStart: 10-27-2024 End: 69-69-6813jcbmftofagBLSP AICHHOLZNot AvailableStart: 10-27-2024 End: 90-32-3292Ngfxam outpatient visit 25 minutesMckayla Blas WEB PRODUCER Work Phone: noMS [facility] FMComment on above:Primary hypertension (CMS/HCC) (Primary Dx); Diabetic polyneuropathy associated with type 2 diabetes mellitus ([facility]/HCC); Chronic diastolic heart failure ([facility]/HCC); Bilateral lower extremity edema; Morbid (severe) obesity due to excess calories ([facility]/HCC); Type 2 diabetes mellitus with complication, with long-term current use of insulin ([facility]/HCC); Anxiety and depression ([facility]/HCC); Cigarette nicotine dependence without complication; Encounter for screening mammogram for malignant neoplasm of breast; Insomnia; Non-seasonal allergic rhinitis, unspecified trigger; Type 2 diabetes mellitus with unspecified complications; Vitamin D deficiency, unspecified; Gastro-esophageal reflux disease without esophagitis; PAD (peripheral artery disease) ([facility]/HCC); Gastroesophageal reflux disease, unspecified whether esophagitis present; Venous ulcer of right leg ([facility]/HCC)Start: 10-21-2024 End: 45-88-4805QudkijJdgd Aichholz WEB PRODUCER Work Phone: noms CWM FMComment on above:Chronic obstructive pulmonary disease, unspecifiedStart: 10-08-2024 End: 06-17-6680Dpxkilwfx Result EncounterLisa Blas WEB PRODUCER Work Phone: noms External Department UnsolicitedStart: 10-08-2024 End: 97-62-8545Vypbbwjrw Result EncounterLisa Blas WEB PRODUCER Work Phone: noms External Department UnsolicitedStart: 10-08-2024 End: 04-37-2179Ephcwl outpatient visit 25 Adolfo Souza MD Work [...] of50.0 to 59.9 in adultStart: 10-08-2024 End: 35-15-8280wjjftlquzuQJBQQ F SABBAGHNot AvailableStart: 08-27-2024 End: 51-98-7604Alvsrb outpatient visit 25 minutesMckayla Wan SCHAEFER Work [...] with long-term current use of insulin ([facility]); Tobacco user; Mixed hyperlipidemia ([facility]); Gout, unspecified cause, unspecified chronicity, unspecified site; Vitamin deficiency; Gastro-esophageal reflux disease without esophagitis; Edema, unspecified; Edema; Hyperlipidemia, unspecified ([facility]); Encounter for smoking cessation counseling; Venous ulcer of right leg ([facility]); Antibiotic-induced yeast infectionStart: 08-27-2024 End: 39-80-3086bhfotjyedvENET AICHHOLZNot AvailableStart: 08-27-2024 End: 06-82-2658Pothfantk Result EncounterGeneric External Data ProviderNOMS External Department UnsolicitedStart: 08-27-2024 End: 12-58-6039Wmbnxdohv Result EncounterGeneric External Data ProviderNOMS External Department UnsolicitedStart: 08-08-2024 End: 52-67-6015ykywqnluhgHSXHLACMC Healthcare Systemtart: 07-17-2024 End: 10-31-1552ZwuapvPiit Aichholz WEB PRODUCER Work Phone: noms CWM FMStart: 07-14-2024 End: 32-77-3574Yauwzv outpatient visit [facility] NP Work Phone: noms CWM FMComment on above:Primary hypertension ([facility]) (Primary Dx); Diabetic polyneuropathy associated with type 2 diabetes mellitus ([facility]); Pulmonary emphysema, unspecified emphysema type ([facility]); Critical limb ischemia of right lower extremity ([facility]); PAD (peripheral artery disease) ([facility]); Gastroesophageal reflux disease, unspecified whether esophagitis present; Bilateral lower extremity edema; Venous ulcer of right leg ([facility]); Type 2 diabetes mellitus with complication, with long-term current use of insulin ([facility]); Tobacco user; Encounter for smoking cessation counseling; Kidney stone; Adrenal mass 1 cm to 4 cm in diameter ([facility]); Radiculopathy, lumbar region; Non-seasonal allergic rhinitis, unspecified trigger; Type 2 diabetes mellitus with unspecified complications ([facility])Start: 07-14-2024 End: 94-08-3233cdpuikzwmtTSUC AICHHOLZNot AvailableStart: 07-05-2024 End: 83-06-8411FyssnqLszu Chetz WEB PRODUCER Work Phone: noms [facility] FMComment on above:Bilateral lower extremity edemaStart: 06-11-2024 End: 96-31-2701yxdtalqicvUgrgltx R WATERSFacility:EU [place]kyStart: 06-11-2024 End: 82-73-0794Grrvraz encounter procedurePanaomy ARAUZ [facility] Gh[facility] Start: 05-27-2024 End: 38-05-2282Nyyguf Jack Souza MD Work Phone: noms ENDOCRINOLOGYStart: 05-27-2024 End: 42-51-1624Jdgqjqyousif Souza MD Work Phone: noms ENDOCRINOLOGYStart: 05-27-2024 End: 63-95-4781jhkbvjqpsjJEPSJ F SABBAGHNot AvailableStart: 05-27-2024 End: 33-31-2824Mhgquu outpatient visit 25 minutesRain Souza MD Work Phone: noms ENDOCRINOLOGYComment on above:Type 2 diabetes mellitus with hyperglycemia, with long-term current use of insulin (CMS/[facility]) (Primary Dx); Encounter for dietary consultation; Vitamin D deficiency; Primary hypertension (CMS/HCC); Insulin long-term use (CMS/HCC); Hyperlipemia, mixed (CMS/HCC); Microalbuminuria; Class 3 severe obesity due to excess calories with serious comorbidity and body mass index (BMI) of50.0 to 59.9 in adult (CMS/HCC)Start: 05-12-2024 End: 59-77-4067Wjzlxqlqk Result EncounterGeneric External Data ProviderNOMS External Department UnsolicitedStart: 05-12-2024 End: 42-41-4396Szwefbjmo Result EncounterGeneric External Data ProviderNOMS External Department UnsolicitedStart: 41-76-5164nkpmxkyipzALTGENYK E SILVIA Facility:[facility] [place]Start: 04-24-2024 End: 07-91-8270Nymsuzzfl Result EncounterGeneric External Data ProviderNOMS External Department UnsolicitedStart: 04-24-2024 End: 08-01-8118Afywhgwdp Result EncounterGeneric External Data ProviderNOMS External Department UnsolicitedStart: 04-14-2024 End: 57-73-0994Nstrfg flowsheetMckayla Blas WEB PRODUCER Work Phone: noms CWM FMStart: 04-14-2024 End: 29-17-0991Cgylkc flowsheetMckayla Blas WEB PRODUCER Work Phone: noms CWM FMStart: 04-14-2024 End: 83-05-2571Hvrlwx outpatient visit 25 minutesLisa Blas WEB PRODUCER Work Phone: noms CWM FMComment on above:Primary [...] Tobacco user; Hyperpigmentation of skinStart: 04-14-2024 End: 30-54-0006unmeopwenjNDLU JUANJOSEHHOLZNot AvailableStart: 04-05-2024 End: 69-34-4476PwkoqtAgzg Aichholz WEB PRODUCER Work Phone: noms CWM FMComment on above:Hyperlipidemia, unspecified (CMS/HCC); Bilateral lower extremity edemaVitamin D deficiency, unspecifiedStart: 82-26-4349Edqsxsy encounter procedureRain Souza MD Work Phone: noms HealthcareStart: 12-14-2023 End: 13-92-1620Mwmidfrwx Result EncounterLisa Wan WEB PRODUCER Work Phone: noms External Department UnsolicitedStart: 12-14-2023 End: 55-80-7421Ovvkicycz Result EncounterLisa Harshadholz WEB PRODUCER Work Phone: noms External Department UnsolicitedStart: 08-31-2023 End: 73-84-0312Hpggiqeqo Result EncounterAmy Cari PA Work Phone: noms External Department UnsolicitedStart: 08-31-2023 End: 04-33-1107Httmubjwk Result EncounterAmy Cari MAYERS Work Phone: noms External Department UnsolicitedStart: 08-17-2023 RefillLisa Rosenbergz WEB PRODUCER Work Phone: noms CWM FMComment on above:Vaginal yeast infection (Primary Dx)Start: 44-25-7391HlxaflDxkq Aichdallin WEB PRODUCER Work Phone: NONF CWM FMComment on above:Type 2 diabetes mellitus with unspecified complications (CMS/HCC); Edema, unspecified; EdemaStart: 66-68-7008hbjrlncqinMFXBPJHWGIWW LAKSHMIPATHY .Facility:U5Sonqh: 12-05-2022 End: 07-52-0748Pvaysjflji and management of inpatientJESSICA ALONDRA .Facility:[facility]1 Start: 11-23-2022 End: 26-23-4500euvzdoqwunSVS MCKAYLA AICHHOLZFacility:K3Sutri: 11-22-2022 End: 36-60-4183bbgmcurejlHGL MCKAYLA AICHHOLZFacility:V6Bhdnx: 11-17-2022 End: 56-38-0680bwnsyjotcgFIDVBPP HALKER .Facility:J5Zdmwj: 11-15-2022 End: 41-04-0061Krgsjfb encounter procedureJENNIFER E SILVIA [facility] start: 10-05-2022 End: 95-83-9506ftghosgflzXNRSUV DIAB .Facility:D1Qlrug: 09-21-2022 End: 11-18-5092nnvpymhrwwPLW MCKAYLA BLASFacility:W1Zhawh: 38-16-7221yaqtkhowen COMFORT CULLENFacility:Z7Rwizk: 08-24-2022 End: 30-69-1185vybdbyjmvoJL CHAPARRO S [place] .Facility:G6Wplrw: 08-21-2022 End: 87-79-5204ljoyxsmbjqFOPMV D [facility]Z2Komvo: 07-27-2022 End: 46-44-0815wuxwmivucpPXNB TAMLYN .Facility:Y0Opkea: 07-18-2022 End: 23-90-7579elyohyqpoxEKDK TAMLYN .Facility:Y6Bbuck: 07-18-2022 End: 68-92-2209cuzelcgtvjGZGBK D [facility]:Z7Rfdfa: 07-06-2022 End: 94-86-1619zfdspavaypAIS MCKAYLA BLASFacility:O4Ytkda: 05-11-2022 End: 72-70-9046wkqkzddrwoCQTL VALENZUELA .Facility:P5Erbdr: 04-25-2022 End: 70-23-6847rzobttohazTG CHAPARRO S [place] .Facility:L5Sgppd: 04-20-2022 End: 78-39-2308wrkzhwiwvmAZPV VALENZUELA .Facility:H5Ovcqw: 03-08-2022 End: 51-09-5319yjdtjvcvtoWtogu [employer] Other [employer] Other Start: 39-13-0674Aczmhk outpatient visit 15 minutes Stephanie QadirFPG NephrologyStart: 03-03-2022 End: 83-34-0600awyiiwvlnzTMO MCKAYLA Laucility:X8Kxeje: 02-20-2022 End: 99-32-3748sxuvxiunivKjfyr [employer] Other [employer] Other Start: 82-37-0113Lhdeqq outpatient new 45 minutesAbdul QadirFPG NephrologyStart: 02-06-2022 End: 27-09-9871Biarrtl encounter procedureElbert Mahnaz REGLA [facility] Wilfredo start: 01-19-2022 End: 48-13-8290ahlgrvsedaYECY SOLIS .Facility:U0Uonwu: 12-24-2021 End: 06-81-1763bjbwdzwwouCPHSP PARKERFacility:O1Dlnux: 08-26-2020 End: 33-30-3878Lfhbspi encounter procedureVITHAL SHENDGEFacility:UTMCStart: 10-30-2019 End: 33-86-5518Rxbqmunqe department patient visitDONADYA [facility] Hospitaltart: 10-30-2019 End: 43-38-6484Bjepgcpzp department patient visitUniversity [facility]als [facility] Emergency DepartmentStart: 48-97-5030Wbiamuaaovjb stateAbdul Tico Other rt [employer] Other Procedures DateProcedureProcedure DetailPerforming ClinicianStart: 66-98-1911QP ECHO DOPPLER COMPLETEGeneric External Data ProviderStart: 10-34-7664Gnuj bld gluc mntr dev cleared fda spec home useRain Souza MD Work Phone: Start: 06-95-4985WKBJW CULTURE 2Generic External Data ProviderStart: 23-09-2545MFZAS CULTURE 1Generic External Data ProviderStart: 97-03-0684Jzxb bld gluc mntr dev cleared fda spec home useRain Souza MD Work Phone: Start: 39-88-4459BMM UA (CLEAN/CATCH) MICROSCOPIC IF INDICATELisa Wan WEB PRODUCER Work Phone: Start: 90-11-3722NUU CBC WITH AUTO DIFFGeneric External Data ProviderStart: 46-05-9389Hvlc bld gluc mntr dev cleared fda spec home useRain Souza MD Work Phone: Start: 06-57-1786NJ LUMBAR SPINE WO CONGeneric External Data ProviderStart: 70-63-6177DN ABDOMEN PELVIS W CONGeneric External Data ProviderStart: 81-82-1089NLA CREATININEGeneric External Data ProviderStart: 63-50-6630BTXNBJCPU BLOOD PRESSUREGeneric External Data ProviderStart: 65-83-1546RM TOMOSYNTHESIS SCREENING Chyna Blas NP Work Phone: Start: 05-78-6446GmcvrdyfbfkCydok Sabbagh MD Work Phone: Start: 69-96-9846ROLRS CULTURE 2Generic External Data ProviderStart: 38-09-1534HNNEW CULTURE 1Generic External Data ProviderStart: 01-69-4153NUH 12-LEADAmy Cari MAYERS Work Phone: Start: 70-65-2983LpnrwwcmnjnSzdv Aichholz NP Work Phone: Start: 62-98-0864Wxbvurfyuwc observation [Identifier] in Cervix by Cyto stainMckayla Blas NP Work Phone: H/O: hysterectomyPatrick ARAUZ Laparoscopic cholecystectomyPatrick ARAUZ Operative procedure on footPatrick ARAUZ Plan of Treatment DateCare ActivityDetailAuthorStart: 02-01-2026 End: 26-03-9574Gtehagh encounter procedureNOMS CWM FMStart: 07-21-2026Medicare Annual Wellness (AWV)Medicare Annual Wellness (AWV)NOMS HealthcareStart: 64-32-3200Ztvht screening for proteinDiabetes: Urine Protein ScreeningNOMS HealthcareStart: 72-86-9052Cyabogydm for malignant neoplasm of colonNOMS HealthcareStart: 37-33-0038Ntsmyhsx screeningDiabetes: Retinopathy ScreeningNOMS HealthcareStart: 05-28-2025 End: 39-84-1468Ogpzwaf encounter procedureNOMS SH ENDOCRINOLOGYStart: 05-13-2025 Glaucoma screeningDiabetes: Retinopathy ScreeningST. [facility] HealthcareStart: 36-96-1974Djnbounvfb A1c measurementDiabetes: Hemoglobin C3WYSNWGolden Valley Memorial Hospital Start: 04-29-2025 End: 99-85-9169Hmpglvf encounter procedureNOHILLCREST [facility] [place] FMStart: 12-40-9540Lieloyyao vaccinationNOAR HealthcareStart: 01-28-2025 End: 11-40-5461Orelqrg encounter /23/2025 10:50 AM EDT Office Visit [facility] [address] [place] [address] Rain Souza MD [address] [place] [address] [facility] ENDOCRINOLOGYStart: 01-26-2025 End: 79-44-2904Aymjqks encounter qqhiedqvn38/21/2025 6:00 PM EDT [facility] [address] [place] [address] Mckayla Blas, WEB PRODUCER [address] [place] [address] [facility] FMStart: 07-11-2025Medicare Annual Wellness (AWV) Medicare Annual Wellness (AWV)[facility] HealthcareStart: 19-25-4646Awngddcqai A1c measurementDiabetes: Hemoglobin T5GEHUJGolden Valley Memorial HospitalStart: 12-15-2024 End: 46-73-1006IO Breast - bilateral ScreeningBilateral screening mammogram Imaging Routine Encounter for screening mammogram for malignant neoplasm of breast Expected: 12/15/2024 (Approximate), Expires: 12/27/2025[facility] Work Phone: Comment on above:Expected: 12/15/2024 (Approximate), Expires: 12/27/2025Start: 79-11-8785Nmwmjfadq for malignant neoplasm of breast MammogramGolden Valley Memorial HospitalStart: 38-00-1122Ynjti screening for proteinDiabetes: Urine Protein ScreeningST. [facility] HealthcareStart: 10-27-2024 End: 87-03-1578Wmxiopw encounter katzmscec38/21/2025 2:00 PM EDT [facility] [address] [place] [address] Mckayla Blas NP [address] [place] [address] [facility] FMStart: 10-08-2024 End: 69-11-3935Gcndmnd encounter lgijbrjsc48/02/2025 11:20 AM EDT Office Visit [facility] [address] [place] [address] Rain Souza MD [address] [place] [address] [facility]Start: 08-27-2024 End: 28-37-6597Zmwktak encounter /19/2025 5:30 PM EST Office Visit [facility] [address] [place] [address] Mckayla Blas, SILVANO [address] [place] [address] [facility] FMStart: 08-27-2024 End: 59-27-159290722093-sjzfxbpjuxtxbg D3 [Mass/volume] in Serum or PlasmaVitamin D 25 hydroxy Lab Routine Vitamin deficiency Expected: 08/27/2024 (Approximate), Expires: 08/27/2025NOAR HealthcareComment on above:Expected: 08/27/2024 (Approximate), Expires: 08/27/2025Start: 68-28-8594Risexayupt A1c measurement Diabetes: Hemoglobin D2UIQRTPhelps HealthStart: 08-27-2024 End: 20-97-6369Headrlt function 2000 panel - Serum or PlasmaHepatic function panel Lab Routine Hyperlipidemia, unspecified (CMS/HCC) Expected: 08/27/2024 (Approximate), Expires: 08/27/2025[facility] HealthcareComment on above:Expected: 08/27/2024 (Approximate), Expires: 08/27/2025Start: 08-27-2024 End: 42-30-1352Oggeq 1996 panel - Serum or PlasmaLipid panel Lab Routine Mixed hyperlipidemia ([facility]) Expected: 08/27/2024 (Approximate), Expires:08/27/2025 [facility] Healthcare Work Phone: Comment on above:Expected: 08/27/2024 (Approximate), Expires: 08/27/2025Start: 08-27-2024 End: 05-37-1628Adfsqblvuwzj/Creatinine panel in random UrineMicroalbumin / creatinine, urine ratio Lab Routine Primary hypertension ([facility]) Type 2 diabetes mellitus with complication, with long-term current use of insulin ([facility]) Expected: 08/27/2024 (Approximate), Expires: 08/27/2025[facility] Healthcare Comment on above:Expected: 08/27/2024 (Approximate), Expires: 08/27/2025Start: 08-27-2024 End: 32-24-6289Ycenj [Mass/volume] in Serum or PlasmaUric acid Lab Routine Gout, unspecified cause, unspecified chronicity, unspecified site Expected: (Approximate), Expires: 08/27/2025[facility] HealthcareComment on above: Expected: 08/27/2024 (Approximate), Expires: 08/27/2025Start: 08-27-2024 End: 36-27-5315Dvdrkpypsz complete panel - UrineUrinalysis with reflex microscopic (clean catch) Lab Routine Primary hypertension ([facility]) Type 2 d iabetes mellitus with complication, with long-term current use of insulin ([facility]) Tobacco user Gout, unspecified cause, unspecified chronicity, unspecified site Expected: 08/27/2024 (Approximate), Expires: 08/27/2025[facility] HealthcareComment on above:Expected: 08/27/2024 (Approximate), Expires: 08/27/2025Start: 08-26-2024 End: 38-97-4555Xozwqxm encounter nsxkckxoi20/18/2025 10:30 AM EST Office Visit [facility] [address] [place] [address] Rain Souza MD [address], [address] [place] [address] [facility]YStart: 07-14-2024 End: 56-35-4802Zosyluy encounter eogysddxc70/06/2025 6:30 PM EST Office Visit [facility] [address] [place] [address] Mckayla Blas, SILVANO [address] [place] [address] [facility] FMStart: 07-14-2024 End: 46-98-2061Umflhpp encounter ebfajityq65/06/2025 10:10 AM EST Office Visit [facility] [address] [place] [address] Rain Souza MD [address], [address] [place] [address] [facility] ENDOCRINOLOGYStart: 39-63-9295Aowaqdsro vaccinationInfluenza Vaccine (#1)NOMS HealthcareComment on above:Postponed from 03/09/2024 (Patient Refused)Start: 05-27-2024 End: 68-08-0271Sycuhyn encounter fdsdxzepo44/19/2024 9:50 AM EST Office Visit [facility] [address] [place] [address] Rain Souza MD [address] [place] [address] [facility] ENDOCRINOLOGYStart: 40-84-8195Yisaovnjpo A1c measurementDiabetes: Hemoglobin Q5PGBFC HealthcareStart: 05-15-2024 End: 22-59-4026Gbbvb clkixtevkno28/07/2024 Abstract [facility] [address] [place] [address] Rain Souza MD [address] [place] [address] [facility]Start: 05-15-2024 End: 85-40-1504Skgriky encounter fexlnprll95/07/2024 11:20 AM EST Office Visit [facility] [address] [place] [address] Rain Souza MD [address], [address] [place] [address] [facility]OCRINOLOGYStart: 04-17-2024 End: 10-01-6944Bqrbxyo encounter sdudjwdtk20/10/2024 3:40 PM EDT Office Visit [facility] [address] [place] [address] Mckayla Blas, SILVANO [address] [place] [address] [facility] FMStart: 04-14-2024 End: 33-69-6187Pdgpcfh encounter nhrgcknol23/07/2024 11:00 AM EDT Office Visit [facility] [address] [place] [address] Mckayla Blas, WEB PRODUCER [address] [place] [address] ArrivedNOAR CW FMComment on above:ArrivedStart: 03-09-2024 Influenza vaccinationInfluenza Vaccine (#1)NOMS HealthcareStart: 02-19-2024 Hemoglobin A1c measurementDiabetes: Hemoglobin A2URTDJ HealthcareStart: 05-09-7837Vwabz screening for proteinDiabetes: Urine Protein ScreeningNOAR HealthcareStart: 88-59-8021Bcshlqcnn for malignant neoplasm of breastMammogram [facility] HealthcareStart: 10-15-2023 End: 64-95-5885Wigalmy encounter wumegvsgl92/08/2024 4:30 PM EDT Office Visit [facility] [address] [place] [address] Mckayla Blas, S[address]VANO [address] [place] [address] [facility] FMStart: 61-51-3689Fvtsrdojtb A1c measurement Diabetes: Hemoglobin Q0BSFVZ HealthcareStart: 93-37-6091Zjxnbvrj screening Diabetes: Retinopathy ScreeningNOAR HealthcareStart: 57-13-5252Ovytfqjlg vaccinationFlu vaccine (Season Ended)[facility]: 10-07-2018 Screening for malignant neoplasm of cervixNOAR HealthcareStart: 42-40-5361Jfacz panelLipid screenPaulding County Hospital: 90-24-5584Qvilabapt for malignant neoplasm of cervixHPV/CotestNOAR HealthcareStart: 70-68-7736Yyjhuggsp for malignant neoplasm of cervixCervical cancer screenPaulding County Hospital: 52-00-5504NZbO/Tdap/Td vaccine (1 - Tdap)DTaP/Tdap/Td vaccine (1 - Tdap)[facility]: 01-25-9522RTG screeningHIV screenPaulding County Hospital: 02-17-1971Medicare Annual Wellness (AWV)Medicare Annual Wellness (AWV)[facility] HealthcareStart: 40-93-4417Oaakqpkyi for malignant neoplasm of colonNOMS HealthcareBLOOD CULTURE 1BLOOD CULTURE 1 Lab Routine 12/04/2024 4:44 PM EDTNOAR HealthcareBLOOD CULTURE 2BLOOD CULTURE 2 Lab Routine 12/04/2024 5:28 PM EDTNOAR Healthcare Immunizations Immunization DateImmunizationNotesCare EulqiagrMflfsbbs28-03-7554rzvppikad, injectable, quadrivalent, contains preservativeMckayla Blas WEB PRODUCER Work Phone: NOPhelps HealthDnnrwguoqi06-64-3566fdvxctrzp virus vaccine, unspecified formulationRain Souza MD Work Phone: [facility]01-11-2022SARS-CoV-2 (COVID-19) mRNA BNT-162b2 vaxJENNIFER SILVIA [facility]04-22-2021SARS-CoV-2 (COVID-19) mRNA BNT-162b2 vaxJENNIFER SILVIA [facility]04-02-2021SARS-CoV-2 (COVID-19) mRNA BNT-162b2 vaxJENNIFER SILVIA [facility]10-09-2017influenza virus vaccine, H5N1, A/ (national stockpile)Mckayla Blas WEB PRODUCER Work Phone: [facility] HospitalFzyhwrhkwk12-60-7106earvkjkpl virus vaccine, unspecified formulationRain Souza MD Work Phone: NOPhelps HealthUqqpzcseuc33-44-9046gipqphxmg, unspecified formulationPatrick ARAUZ [facility] [place] 963840-09-2017pneumococcal polysaccharide vaccine, 23 Morgan Souza MD Work Phone: NOPhelps HealthPphhxdkmej39-78-3639qqhstavuj virus vaccine, H5N1, A/ (national stockpile)Mckayla Blas WEB PRODUCER Work Phone: NOPhelps HealthQhetxxhcpq71-52-3249tcuwtbrjd virus vaccine, unspecified formulationRain Souza MD Work Phone: noPhelps HealthZdtsxfuazv36-32-4185cpdecutwy, unspecified formulationPatrick EveryRack [facility]y10-25-2013influenza virus vaccine, whole virusRain Souza MD Work Phone: NOPhelps HealthOqowoilyph71-06-1367eoqjnvfuf, injectable, quadrivalent, contains preservativeLisa Aichholz WEB PRODUCER Work Phone: NOPhelps HealthYojrbzpzyb76-98-9438ynynnxefa, wholePatrick ARAUZ [facility] Hospitaly07-24-1998measles, mumps and rubella virus vaccineRain Souza MD Work Phone: [facility] Payers DatePayer CategoryPayerPolicy [id number] 2024Medicare (Managed Care)[id number] Health [id number] [id number] 2019[place]icaid[place] [id number] 2018-Present [phone] [address] [place] [address]Medicaid [id number] 2013Medicare [id number] 2..840.1.281938.3.57[id number] 2.840.1.766593.3.57[id number] 2.16.840.1.021515.3.57[id number] 2.16.840.1.821844.3.57[id number] 2.16.840.1.908722.3.579.2.17428-18-9834Doaenfp4821246 2..840.1.602721.3.579.2.94382-16-3414Ekuekiz5456004 2..840.1.774994.3.579.2.89839-93-6610Dsvczwy4078572 2.840.1.969639.3.579.2.63491-09-3738Fwlafdp8602750 2.840.1.867974.3.579.2.51414-93-2459Jyolnhi3496481 2.840.1.176595.3.579.2.06212-74-8968Gvwzjfb6048960 2.840.1.418180.3.579.2.81727-00-1727Gsellor5460947 2.840.1.190639.3.579.2.10004-78-1196Sxrypcr0458490 2.840.1.252869.3.579.2.89176-86-5793Qzjciwb9671181 2..840.1.144686.3.579.2.36143-81-1466Czhgmrg1217871 2.840.1.833291.3.579.2.10973-17-0551Dxtuwzz0809848 2..840.1.169456.3.579.2.63119-72-6531Ubrvevd0574415 2.840.1.107276.3.579.2.76286-92-3641Btvtbwg9244744 2.16.840.1.025662.3.579.2.11208-09-7911Geypumi4274835 2.840.1.580773.3.579.2.56527-83-6754Juzceux3128253 2.840.1.598886.3.579.2.70900-84-5772Odyzcmg0119594 2.840.1.172084.3.579.2.79949-13-7398Cqnyolw0220836 2.840.1.871412.3.579.2.59363-91-3055Dcrodnt8386367 2.0.1.481802.3.579.2.05182-77-1288Zcyqmmf87660585 2.840.1.437211.3.579.2.284787-49-4344Ocnkfxk69327731 2.0.1.599276.3.579.2.572121-22-7396Jdjnwog25667358 2..1.320852.3.579.2.754348-28-5956Kprhwfj6264823 2.840.1.590970.3.579.2.517690-87-0583Ajldfxd0336399 2.0.1.486918.3.579.2.774410-72-3364Ijmjvsm5317867 2..1.317730.3.579.2.518492-05-7860Qonanrt3838685 2.0.1.645474.3.579.2.490898-65-4419Guwttnn2755381 2.840.1.206300.3.579.2.227390-96-9794Tzhiyln2194509 2.840.1.891279.3.579.2.119860-29-7622Ufanqut96661351 2..840.1.540079.3.579.2.63816-11-3550Itftbiw62866132 2..840.1.307186.3.579.2.99938-11-6323Ksyfrzf962582048 2..840.1.652420.3.579.2.14589-56-1099Zwzmgyw915736384 2..840.1.106732.3.579.2.58800-60-5193Uhfsonh268739338 2..840.1.268605.3.579.2.80862-31-3188Oggtyvq571861563 2..840.1.136407.3.579.2.07106-09-9884Hfwcvwl635349117 2.840.1.207112.3.579.2.14941-81-2068Lktiahu578733055 2..840.1.678142.3.579.2.76600-71-0841Hzskhon903881153 2..840.1.117748.3.579.2.196 [id number] 1960Private Health [id number] 2.0.1.806719.19 [id number] [id number] Health InsuranceCherrington [id number] Auto/[id number] Social History DateTypeDetailFacilityStart: 02-17-2014 End: 32-25-1015Sgrtlug smoking status NHISCurrent every day smokerMercy Health- [place], [place]Start: 83-41-5931Njiczlg of tobacco useCigarette SmokerPaulding County Hospital: 02-17-2014 End: 46-80-7891Zqylzqnwzn smoked current (pack per day) - ReportedPaulding County Hospital: 87-17-4573Nmsjzfn intakeCurrent drinker of alcohol (finding)[facility]: 22-54-1327Tmgpfqy CommentRareMAultman Alliance Community Hospital: 22-37-5473Fac Assigned At BirthNot on fileMinerva, KYExposure to SARS-CoV-2 (event)Unable to assessPaulding County Hospital: 92-84-4437Nabkmvk smoking statusSmoker (finding)[facility] start: 07-10-2023 End: 03-39-0053Mmt Assigned At BirthFemaleExec[facility] start: 11-15-2022 End: 39-09-7039Atrupql smoking statusHeavy tobacco smoker (finding)[facility] Systemtart: 07-10-2023 End: 04-30-4778Giftpfo use and exposureSmokeless tobacco non-userNOMS Healthcare Start: 07-10-2023 End: 14-48-1662Vvwinjs intakeLifetime non-drinker (finding)[facility] HealthcareWithin the last year, [...] drinks on 1 occasion?Less than monthlyNOMS HealthcareStart: 03-72-4923Sym hard is it for you to pay [...] from your doctor or pharmacy [SILS]RarelyNOMS HealthcareSexFemale (finding)[facility] Start: 11-26-4722Jzz Assigned At [facility] BeachNEGATED: Highlighted [facility] Medical Equipment Procedure CodeEquipment CodeEquipment Original TextEquipment IdentifierDates [id number]: 03-05-3198KMK TO TEST BLOOD SUGAR 4 TIMES [id number]: 07-07-2024 Functional Status QtezOfqwfpcquxKzkdxiWjsklgky35-34-0892Kegvtct Health Questionnaire 2 item (PHQ- 2) [Reported][facility] HospitalOdmcmfaems28-09-2167Vvatags falling or staying asleep, or sleeping too muchNot at all 01/26/2025 4:13 PM EDT Mychart, Generic Not at all [facility] HospitalLjilgveqvb96-23-0397Hmebpfw tired or having little energyNot at all 01/26/2025 4:13 PM EDT Mychart, Generic Not at allGolden Valley Memorial HospitalXuqlocnydu54-91-0762Dswf appetite or overeatingNot at all 01/26/2025 4:13 PM EDT Mychart, Generic Not at [facility] HospitalWgaqcbuawh82-16-3886Kbyowrw bad about yourself-or that you are a failure or have let yourself or your family downNot at all 01/26/2025 4:13 PM EDT Mychart, Generic Not at allGolden Valley Memorial HospitalJnsuvraace98-78-7680Jwlhvdd concentrating on things, such as reading the newspaper or watching televisionNot at all 01/26/2025 4:13 PM EDT Mychart, Generic Not at [facility] HospitalOyeugrrhtf99-33-4772 Moving or speaking so slowly that other people could have noticed. Or the opposite - being so fidgety or restless that you have been moving around a lot more than usualNot at all 01/26/2025 4:13 PM EDT Mychart, Generic Not at [facility] HospitalXdtyfzpsxh07-70-0708Phpckyiu that you would be better off , or of hurting yourself in some wayNot at all 01/26/2025 4:13 PM EDT Mychart, Generic Not at [facility] HospitalBynxublzwm47-77-2783Rrwrw score [AUDIT-C]1 08/26/2024 6:13 PM EST Mychart, GenericGolden Valley Memorial HospitalIaaknlpjpc37-31-1938Dne often do you have a drink containing alcohol?Monthly or less 08/26/2024 6:13 PM EST Mychart, Generic Monthly or lessGolden Valley Memorial HospitalDtqiqwwrgl52-22-2632Lcf many standard drinks containing alcohol do you have on a typical day?1 or 2 08/26/2024 6:13 PM EST Mychart, Generic 1 or 2NOMS Bolyywehon57-83-4716Jks often do you have 6 or more drinks on 1 occasion?Never 08/26/2024 6:13 PM EST Mychart, Generic NeverGolden Valley Memorial Hospital [id number] StatusN/AExecutive Urology of [facility]07-11-2024How difficult have these problems made it for you to do your work, take care of things at home, or get along with other people?Not difficult at all 01/17/2024 10:08 AM EDT Marilyn Rolon MA Not difficult at [facility] [id number] Health Questionnaire 2 item (PHQ-2) [Reported][facility] [id number] Health Questionnaire 2 item (PHQ-2) [Reported][facility] HospitalWpuvpgxqax14-61-9141Ownbtcooln StatusN/AExecutive [facility] of [facility] [id number] StatusN/AExecutive [facility]rology of [facility] Clinical Notes 01-19-2022 to 04-06-2025 Note Date & [id number] Evaluation note* Diagnosis Onset Date Resolution Status [...] use ofacuteOctober 2024 5:50pmVenous insufficiencyacuteOctober 2024 5:50pm [facility] Work Phone: 1(161) 683-680907-30-2025 NotePlease let her know her ECHO showed some improvement in the left side wall thickness, it was severely enlarged, now it is moderate. Important for good BP control to continue to improve this. Everything else looks good. Follow-up as planned in 6 months. Thanks![facility]07-24-2025 History of Present illness Narrative* Rain [...] 96, on lantus 58 units bid, lispro 5-11-48qkfji plus ISS, Trulicity 4.5 mg weekly. meter give us error during download IM 03/2022 follow up visit on 03/14/2022, A1c in the office 9.4, bg 142, on lantus 58 units bid, lispro 3-00-39lidcw plus ISS, Trulicity 4.5 mg weekly. 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 * Mckayla Blas NP - 01/26/2025 6:44 PM EDTAssociated Problem(s): COPD (chronic obstructive pulmonary disease) (HCC) Follows with verena Needs smoking cessation Current meds: duoneb, albuterol, daliresp, * Mckayla Blsa NP - 01/26/2025 6:44 PM EDTAssociated Problem(s): [...] 25 mg, Oral, 2 times daily HYDROcodone-acetaminophen (Oxbow) 5-325 MG tablet 1 tablet, 3 times [...] 07/10/2023 Body mass index (BMI) 50.0-59.9, adult ([facility]) Cellulitis of left [...] Hyperlipidemia 09/17/2023 Hypertension 07/10/2023 Insomnia 09/17/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 ([facility]) Lower extremity edema 09/17/2023 Mixed hyperlipidemia Morbid (severe) obesity due to excess calories ([facility]) Obstructive sleep apnea 07/10/2023 PAD (peripheral artery disease) 09/17/2023 Pancreatitis ([facility]) 09/17/2023 Pneumonia 09/17/2023 Proteinuria, unspecified [...] [facility] Current meds: albuterol, duoneb, 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 Hypertension Please check [...] (severe) obesity due to excess calories ([facility]) Discussed with patient their BMI (actual, verses [...] EDTAssociated Problem(s): Pulmonary hypertension (HCC) Has seen [facility] Cardiology * Mckayla Blas NP [...] on a yearly basis documented in this encounterGolden Valley Memorial [id number] Instructions* Patient Instructions* Mckayla Blas NP - 01/26/2025 6:00 PM EDT Please call the [facility] to schedule your mammogram: [phone]- ext [phone] documented in this encounterGolden Valley Memorial [id number] NoteCardiovascular Medicine [facility] SUBJECTIVE Chief Complaint Patient presents with Congestive Heart Failure Hypertension Hyperlipidemia Mitzi Macias is a 54 y.o. female here for follow-up. PMHx: HFpEF, HTN, HLD, DM, longstanding heavy smoker, COPD, DANIEL, morbid obesity HPI 01/06/2025 Since last seen she was admitted to [facility] for AMS on 12/05/2024. 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 Vitamin D deficiency, unspecified Vitamin deficiency Past Medical History: Diagnosis Date COPD (chronic obstructive pulmonary disease) (CMS/HCC) Diabetes mellitus ([facility]) Hyperlipidemia Hypertension Sleep apnea Family [...] , Rfl: ergocalciferol (Vitamin D-2) 1.25 MG (67058 Units) capsule, Take 1.25 mg by mouth., [...] and at bedtime., Disp: , Rfl: HYDROcodone-acetaminophen (Oxbow) 5-325 mg tablet, TAKE 1 TABLET BY MOUTH THREE TIMES A DAY NEEDED FOR PAIN MUST LAST 30 DAYS, Disp: , Rfl: insulin aspart (NovoLOG) 100 unit/mL (3 mL) injection pen, Novolog Flexpen U-100 Insulin aspart 100 unit/mL (3 mL) subcutaneous, Disp: , Rfl: insulin glargine (Lantus Solostar U-100 Insulin) 100 unit/mL (3 mL) injection pen (more content not included)...[facility]07-01-2025 NotePatient is here today for a [...] and weight gain. Cardiovascular: Positive for leg swelling.[facility] 12-09-2024 History of Present illness Narrative* [...] bad light. She was ultimately taken to [facility] ER, no tox screen was done [...] 25 mg, Oral, 2 times daily HYDROcodone-acetaminophen (Oxbow) 5-325 MG tablet 1 tablet, 3 times [...] Albuminuria 09/17/2023 Angiomyolipoma Anxiety and depression ([facility]) 07/10/2023 Asthma 07/10/2023 Body mass index (BMI) 50.0-59.9, adult ([facility]) Cellulitis of left lower extremity Cervical cancer ([facility]) 09/17/2023 Chronic pain of both knees 09/17/2023 COPD (chronic obstructive pulmonary disease) ([facility]) 07/10/2023 COPD exacerbation ([facility]) 09/17/2023 Decreased functional mobility 09/17/2023 Diabetic neuropathy ([facility]) 07/10/2023 Dietary counseling and surveillance Edema 07/10/2023 Elevated sed rate Elevated WBC count Essential (primary) hypertension ([facility]) GERD (gastroesophageal reflux disease) 09/17/2023 Hyperlipidemia ([facility]) 09/17/2023 Hypertension ([facility]) 07/10/2023 Insomnia 09/17/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 ([facility]) Lower extremity edema 09/17/2023 Mixed hyperlipidemia ([facility]) Morbid (severe) obesity due to excess calories ([facility]) Obstructive sleep apnea 07/10/2023 PAD (peripheral artery disease) ([facility]) 09/17/2023 Pancreatitis 09/17/2023 Pneumonia 09/17/2023 Proteinuria, unspecified Pulmonary hypertension ([facility]) 09/17/2023 Radiculopathy, lumbar region 09/17/2023 Tobacco user 09/17/2023 Type 2 diabetes mellitus with complication, with long-term current use of insulin ([facility]) 07/10/2023 Unilateral primary osteoarthritis, right [...] Problem List Items Addressed This Visit Hypertension ([facility]) Please check blood pressure daily and record DASH diet Limit caffeine Take medication as directed Contact office if chest pain, pressure, dizziness, shortness of breath, swelling legs Recommend slow position changes Current meds: hydralazine, lisinopril, Type 2 diabetes mellitus with complication, with long-term current use of insulin ([facility]) Check blood sugars daily, notify [...] secondary to her steroids Anxiety and depression ([facility]) Current meds: elavil, duloxtine, COPD exacerbation ([facility]) Recent ER visit for unresponsiveness , found to have fever and elevated WBC Sent home with steroids and atb Breathing is better and she feels back to her normal baseline Does have home O2, she is not wearing this today Pulmonary hypertension ([facility]) Has seen [facility] Cardiology Morbid (severe) obesity due to excess calories ([facility]) Discussed with patient their BMI [...] EDTAssociated Problem(s): Pulmonary hypertension (CMS/HCC) Has seen [facility] Cardiology * Mckayla Bals NP - 12/09/2024 7:23 AM EDTAssociated Problem(s): [...] not wearing this today documented in this encounterGolden Valley Memorial [id number] Instructions* Patient Instructions* Mckayla Blas NP - 12/09/2024 10:00 AM EDT Keep appt with wound care today Keep fu with me, sooner if needed documented in this encounterGolden Valley Memorial [id number] History of Present illness Narrative* Mckayla Blas [...] 25 mg, Oral, 2 times daily HYDROcodone-acetaminophen (Oxbow) 5-325 MG tablet 1 tablet, 3 times [...] Albuminuria 09/17/2023 Angiomyolipoma Anxiety and depression ([facility]) 07/10/2023 Asthma 07/10/2023 Body mass index (BMI) 50.0-59.9, adult ([facility]) Cellulitis of left lower extremity Cervical cancer ([facility]) 09/17/2023 Chronic pain of both knees 09/17/2023 COPD (chronic obstructive pulmonary disease) ([facility]) 07/10/2023 COPD exacerbation ([facility]) 09/17/2023 Decreased functional mobility 09/17/2023 Diabetic neuropathy ([facility]) 07/10/2023 Dietary counseling and surveillance Edema 07/10/2023 Elevated sed rate Elevated WBC count Essential (primary) hypertension ([facility]) GERD (gastroesophageal reflux disease) 09/17/2023 Hyperlipidemia ([facility]) 09/17/2023 Hypertension ([facility]) 07/10/2023 Insomnia 09/17/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 ([facility]) Lower extremity edema 09/17/2023 Mixed hyperlipidemia ([facility]) Morbid (severe) obesity due to excess calories ([facility]) Obstructive sleep apnea 07/10/2023 PAD (peripheral artery disease) ([facility]) 09/17/2023 Pancreatitis 09/17/2023 Pneumonia 09/17/2023 Proteinuria, unspecified Pulmonary hypertension ([facility]) 09/17/2023 Radiculopathy, lumbar region 09/17/2023 Tobacco user 09/17/2023 Type 2 diabetes mellitus with complication, with long-term current use of insulin ([facility]) 07/10/2023 Unilateral primary osteoarthritis, right [...] List Items Addressed This Visit Diabetic neuropathy ([facility]) - Primary Continue with cintia hudson mgmt is prescribing OARRS reviewed Fu in 3 months Goal: tighter glucose control, this has been improving, latest A1c is 7.4%!!! Hypertension ([facility]) Please check blood pressure daily and record DASH diet Limit caffeine Take medication as directed Contact office if chest pain, pressure, dizziness, shortness of breath, swelling legs Recommend slow position changes Current meds: hydralazine, lisinopril, Relevant Medications hydrALAZINE (Apresoline) 25 MG tablet lisinopril 20 MG tablet Type 2 diabetes mellitus with complication, with long-term current use of insulin ([facility]) Check blood sugars daily, notify [...] 81 MG chewable tablet Anxiety and depression ([facility]) Current meds: elavil, duloxtine, Relevant Medications DULoxetine (Cymbalta) [address] capsule Bilateral lower extremity edema Limit sodium , elevate legs, furosemide Relevant Medications furosemide (Lasix) 20 MG tablet potassium chloride ER (Micro-K) 10 MEQ ER capsule furosemide (Lasix) 40 MG tablet Insomnia Relevant Medications amitriptyline (Elavil) 25 MG tablet PAD (peripheral artery disease) ([facility]) Asa, statin Quit smoking BP [...] Relevant Medications ergocalciferol (Vitamin D2) 1.25 MG (38658 UT) capsule Gastro-esophageal reflux disease without esophagitis [...] with long-term current use of insulin ([facility]) Check blood sugars daily, notify [...] (severe) obesity due to excess calories ([facility]) Discussed with patient their BMI [...] latest A1c is 7.4%!!! documented in this encounterBrian Ville [id number] Instructions* Patient Instructions* Mckayla Blas NP - 10/27/2024 2:00 PM EDT No dose changes in meds You will be due for mammogram I will send order to [facility], they should call you to schedule If no call, please call [phone] ext [phone] documented in this encounterBrian Ville [id number] History of Present illness Narrative* Rain Souza [...] 96, on lantus 58 units bid, lispro [id number] plus ISS, Trulicity 4.5 mg weekly. meter give us error during download IM 03/2022 follow up visit on 03/14/2022, A1c in the office 9.4, bg 142, on lantus 58 units bid, lispro [id number] plus ISS, Trulicity 4.5 mg weekly. lab [...] or chew. ergocalciferol (Vitamin D2) 1.25 MG (96282 UT) capsule TAKE 1 CAPSULE BY MOUTH [...] 25 mg, Oral, 2 times daily HYDROcodone-acetaminophen (Oxbow) 5-325 MG tablet 1 tablet, 3 times [...] Albuminuria 09/17/2023 Angiomyolipoma Anxiety and depression ([facility]) 07/10/2023 Asthma ([facility]) 07/10/2023 Body mass index (BMI) 50.0-59.9, adult ([facility]) Cellulitis of left lower extremity Cervical cancer ([facility]) 09/17/2023 Chronic pain of both knees 09/17/2023 COPD (chronic obstructive pulmonary disease) ([facility]) 07/10/2023 COPD exacerbation ([facility]) 09/17/2023 Decreased functional mobility 09/17/2023 Diabetic neuropathy ([facility]) 07/10/2023 Dietary counseling and surveillance Edema 07/10/2023 Elevated sed rate Elevated WBC count Essential (primary) hypertension ([facility]) GERD (gastroesophageal reflux disease) 09/17/2023 Hyperlipidemia ([facility]) 09/17/2023 Hypertension ([facility]) 07/10/2023 Insomnia 09/17/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 ([facility]) Lower extremity edema 09/17/2023 Mixed hyperlipidemia [facility] Morbid (severe) obesity due to excess calories ([facility]) Obstructive sleep apnea 07/10/2023 PAD (peripheral artery disease) ([facility]) 09/17/2023 Pancreatitis 09/17/2023 Pneumonia 09/17/2023 Proteinuria, unspecified Pulmonary hypertension ([facility]) 09/17/2023 Radiculopathy, lumbar region 09/17/2023 Tobacco user 09/17/2023 Type 2 diabetes mellitus with complication, with long-term current use of insulin ([facility]) 07/10/2023 Unilateral primary osteoarthritis, right [...] hyperglycemia, with long-term current use of insulin ([facility]) - POCT glucose manually resulted [...] 4 months (around 02/07/2025). documented in this encounterGolden Valley Memorial [id number] History of Present illness Narrative* Mckayla Blas [...] or chew. ergocalciferol (Vitamin D2) 1.25 MG (60227 UT) capsule TAKE 1 CAPSULE BY MOUTH [...] 25 mg, Oral, 2 times daily HYDROcodone-acetaminophen (Oxbow) 5-325 MG tablet 1 tablet, 3 times [...] CT Albuminuria 09/17/2023 Angiomyolipoma Anxiety and depression ([facility]) 07/10/2023 Asthma ([facility]) 07/10/2023 Body mass index (BMI) 50.0-59.9, adult ([facility]) Cellulitis of left lower extremity Cervical cancer ([facility]) 09/17/2023 Chronic pain of both knees 09/17/2023 COPD (chronic obstructive pulmonary disease) ([facility]) 07/10/2023 COPD exacerbation ([facility]) 09/17/2023 Decreased functional mobility 09/17/2023 Diabetic neuropathy ([facility]) 07/10/2023 Dietary counseling and surveillance Edema 07/10/2023 Elevated sed rate Elevated WBC count Essential (primary) hypertension ([facility]) GERD (gastroesophageal reflux disease) 09/17/2023 Hyperlipidemia ([facility]) 09/17/2023 Hypertension ([facility]) 07/10/2023 Insomnia 09/17/2023 longterm (current) use of insulin ([facility]) Lower extremity edema 09/17/2023 Mixed hyperlipidemia ([facility]) Morbid (severe) obesity due to excess calories ([facility]) Obstructive sleep apnea 07/10/2023 PAD (peripheral artery disease) ([facility]) 09/17/2023 Pancreatitis 09/17/2023 Pneumonia 09/17/2023 Proteinuria, unspecified Pulmonary hypertension ([facility]) 09/17/2023 Radiculopathy, lumbar region 09/17/2023 Tobacco user 09/17/2023 Type 2 diabetes mellitus with complication, with long-term current use of insulin ([facility]) 07/10/2023 Unilateral primary osteoarthritis, right [...] List Items Addressed This Visit Diabetic neuropathy ([facility]) Continue with cintia hudson mgmt is prescribing OARRS reviewed Fu in 3 months Goal: tighter glucose control Hypertension ([facility]) Please check blood pressure daily [...] with long-term current use of insulin ([facility]) Check blood sugars daily, notify [...] / creatinine, urine ratio Anxiety and depression ([facility]) - Primary Current meds: elavil, [...] PPI Malignant neoplasm of cervix uteri, unspecified ([facility]) Had in the past, had [...] Asthma (CMS/HCC) Current meds: albuterol, duoneb, 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 year old female patient being seen for follow-up on diastolic heart failure, shortness of breath and hypertension Patient Active Problem List Diagnosis Abdominal pannus Adrenal mass 1 cm to 4 cm in diameter ([facility]) Albuminuria RAGHU positive Anxiety and depression Arthritis Asthma Bilateral lower extremity edema BMI 50.0-59.9, adult ([facility]) Candidiasis of breast Cardiomegaly Cervical cancer ([facility]) Chronic pain of both knees Closed fracture of upper end of humerus Acute respiratory distress syndrome ([facility]) Decreased functional mobility Diabetic neuropathy ([facility]) Easy bruising GERD (gastroesophageal reflux disease) Gout Headache Hyperlipidemia Hypertension Insomnia Kidney stone Left flank pain Mixed incontinence Class 3 severe obesity with serious comorbidity and body mass index (BMI) of 50.0 to 59.9 in adult ([facility]) Non-seasonal allergic rhinitis Obstructive sleep apnea Other chronic pain PAD (peripheral artery disease) ([facility]) Pneumonia Encounter for screening mammogram for malignant neoplasm of breast Pulmonary hypertension ([facility]) Radiculopathy, lumbar region Current smoker Type 2 diabetes mellitus with complication, with long-term current use of insulin ([facility]) Unilateral primary osteoarthritis, right hip Vaginal yeast infection Venous insufficiency Bad odor of urine Critical limb ischemia of right lower extremity ([facility]) Hyperpigmentation of skin 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 2 diabetes mellitus ([facility]) Myelolipoma of adrenal gland Venous ulcer of right leg ([facility]) HPI Patient was has history of chronic [...] Diagnosis Date COPD (chronic obstructive pulmonary disease) ([facility]) Diabetes mellitus ([facility]) Hyperlipidemia Hypertension Sleep apnea Past [...] , Rfl: ergocalciferol (Vitamin D-2) 1.25 MG (13463 Units) capsule, Take 1.25 mg by mouth., [...] and at bedtime., Disp: , Rfl: HYDROcodone-acetaminophen (Oxbow) 5-325 mg tablet, TAKE 1 TABLET BY [...] SUBCUTANEOUSLY TWICE DAILY, Disp: (more content not included)...[facility]01-06-2025 History of Present illness Narrative* Mckayla [...] or chew. ergocalciferol (Vitamin D2) 1.25 MG (77970 UT) capsule TAKE 1 CAPSULE BY MOUTH ONE TIME PER WEEK furosemide (LASIX) 40 mg, Oral, Daily furosemide (LASIX) 20 mg, Oral, Daily PRN, Take in the afternoon as needed hydrALAZINE (APRESOLINE) 25 mg, Oral, 2 times daily HYDROcodone-acetaminophen (Oxbow) 5-325 MG tablet 1 tablet, 3 times [...] Albuminuria 09/17/2023 Angiomyolipoma Anxiety and depression ([facility]) 07/10/2023 Asthma ([facility]) 07/10/2023 Body mass index (BMI) 50.0-59.9, adult ([facility]) Cellulitis of left lower extremity Cervical cancer ([facility]) 09/17/2023 Chronic pain of both knees 09/17/2023 COPD (chronic obstructive pulmonary disease) ([facility]) 07/10/2023 COPD exacerbation ([facility]) 09/17/2023 Decreased functional mobility 09/17/2023 Diabetic neuropathy ([facility]) 07/10/2023 Dietary counseling and surveillance Edema 07/10/2023 Elevated sed rate Elevated WBC count Essential (primary) hypertension ([facility]) GERD (gastroesophageal reflux disease) 09/17/2023 Hyperlipidemia ([facility]) 09/17/2023 Hypertension ([facility]) 07/10/2023 Insomnia 09/17/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 ([facility]) Lower extremity edema 09/17/2023 Mixed hyperlipidemia ([facility]) Morbid (severe) obesity due to excess calories ([facility]) Obstructive sleep apnea 07/10/2023 PAD (peripheral artery disease) ([facility]) 09/17/2023 Pancreatitis 09/17/2023 Pneumonia 09/17/2023 Proteinuria, unspecified Pulmonary hypertension ([facility]) 09/17/2023 Radiculopathy, lumbar region 09/17/2023 Tobacco user 09/17/2023 Type 2 diabetes mellitus with complication, with long-term current use of insulin ([facility]) 07/10/2023 Unilateral primary osteoarthritis, right [...] List Items Addressed This Visit Diabetic neuropathy ([facility]) Continue with lyrica OARRS reviewed Fu in 3 months COPD (chronic obstructive pulmonary disease) ([facility]) Stable at this time, no changes in meds Encouraged smoking cessation Cont with dr Yañez Hypertension ([facility]) - Primary Please check blood pressure daily and record DASH diet Limit caffeine Take medication as directed Contact office if chest pain, pressure, dizziness, shortness of breath, swelling legs Recommend slow position changes Current meds: hydralazine, lisinopril, Type 2 diabetes mellitus with complication, with long-term current use of insulin ([facility]) Check blood sugars daily, notify [...] take over prescribing PAD (peripheral artery disease) ([facility]) Asa, statin Quit smoking BP [...] with long-term current use of insulin ([facility]) Check blood sugars daily, notify [...] Fu in 3 months documented in this encounterGolden Valley Memorial [id number] Hospital Discharge instructions Patient Education 06/11/2024 10:44:08 [...] require a prescription. You can also purchase zdwq-dgw-okdjedx medicines. Medicines may have nicotine in them [...] and encouragement. Call telephone quitlines, such as 1-266-MXWJ-NOW, reach out to support groups, or work [...] provider. Document Revised: 06/16/2022 Document Reviewed: 06/16/2022 [email or web address] Patient Education 2023 [email or web address] 06/11/2024 10:39:22 Dietary Guidelines to Help [...] include: ?8 oz (237 mL) of milk, bfktxan-svottsdbryhw-duzsb milk, and calcium- fortifiedfruit juice. Calcium-fortified means [...] potatoes, and Kazakh chard. ?Peanuts. ?Potato chips, wallisian fries, and baked potatoes with skin on. ?Nuts and nut products. ?Chocolate. If you regularly take a diuretic medicine, make sure to eat at least 1 or 2 servings of fruits or vegetables that are high in potassium each day. These include: ?Avocado. ?Banana. ?[place], prune, carrot, or tomato juice. ?Baked potato. [...] magnesium, fish oil, or vitamin B6. Take entj-mhd-hgzfkdd and prescription medicines only as told by [...] Casseroles. Pizza. Lasagna. Frozen meals. Potato chips. [place] Islander fries. The items listed above may not [...] Document Reviewed: 10/05/2022 Elsevier Patient Education 2023 [employer]. Follow Up Care 05/06/2024 08:24:56 With:REGLA PHIPPS, Elbert Joya, GEMA Address: [facility] [address] [place] [address]- When: Unknown [facility] Ghada 12-04-2024 NotePatient Education Nephrology Dietary [...] ? 8 oz (237 mL) of milk, nlnykij-vcfatjlwyspz-frhrp milk, and calcium- fortifiedfruit juice. Calcium-fortified means [...] Kazakh chard. ? Peanuts. ? Potato chips, wallisian fries, and baked potatoes with skin on. ? Nuts and nut products. ? Chocolate. ??? If you regularly take a diuretic medicine, make sure to eat at least 1 or 2 servings of fruits or vegetables that are high in potassium each day. These include: ? Avocado. ? Banana. ? [place], prune, carrot, or tomato juice. ? Baked [...] fish oil, or vitamin B6. ??? Take gavt-pkg-pcndkbk and prescription medicines only as told by your health (more content not included)...[facility]11-19-2024 History of Present illness Narrative* Rain Souza [...] 96, on lantus 58 units bid, lispro [id number] plus ISS, Trulicity 4.5 mg weekly. meter give us error during download IM 03/2022 follow up visit on 03/14/2022, A1c in the office 9.4, bg 142, on lantus 58 units bid, lispro [id number] plus ISS, Trulicity 4.5 mg weekly. lab [...] or chew. ergocalciferol (Vitamin D2) 1.25 MG (78167 UT) capsule TAKE 1 CAPSULE BY MOUTH ONE TIME PER WEEK furosemide (LASIX) 20 mg, Oral, Daily PRN, Take in the afternoon as needed furosemide (LASIX) 40 mg, Oral, Daily Glucose Blood (ACCU-CHEK JAQUI PLUS ) 4 times daily hydrALAZINE (APRESOLINE) 25 mg, Oral, 2 times daily HYDROcodone-acetaminophen (Oxbow) 5-325 MG tablet 1 tablet, 3 times [...] X 42 tablet [facility] ALLERGIES: No Known Allergies Past Medical History: Diagnosis Date Abnormal chest CT Albuminuria 09/17/2023 Angiomyolipoma Anxiety and depression ([facility]) 07/10/2023 Asthma ([facility]) 07/10/2023 Body mass index (BMI) 50.0-59.9, adult ([facility]) Cellulitis of left lower extremity Cervical cancer ([facility]) 09/17/2023 Chronic pain of both knees 09/17/2023 COPD (chronic obstructive pulmonary disease) ([facility]) 07/10/2023 COPD exacerbation ([facility]) 09/17/2023 Decreased functional mobility 09/17/2023 Diabetic neuropathy ([facility]) 07/10/2023 Dietary counseling and surveillance Edema 07/10/2023 Elevated sed rate Elevated WBC count GERD (gastroesophageal reflux disease) 09/17/2023 Hyperlipidemia ([facility]) 09/17/2023 Hypertension ([facility]) 07/10/2023 Insomnia 09/17/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 ([facility]) Lower extremity edema 09/17/2023 Morbid (severe) obesity due to excess calories ([facility]) Obstructive sleep apnea 07/10/2023 PAD (peripheral artery disease) ([facility]) 09/17/2023 Pancreatitis 09/17/2023 Pneumonia 09/17/2023 Proteinuria, unspecified Pulmonary hypertension ([facility]) 09/17/2023 Radiculopathy, lumbar region 09/17/2023 Tobacco user 09/17/2023 Type 2 diabetes mellitus with complication, with long-term current use of insulin ([facility]) 07/10/2023 Unilateral primary osteoarthritis, right [...] hyperglycemia, with long-term current use of insulin ([facility]) - POCT glucose manually resulted - POCT glycosylated hemoglobin (Hb A1C) docked device We will continue with Lantus 58, lispro 02/16/12 according to meal size, Mounjaro 15 mg once weekly, Farxiga 5 mg once a day Encounter for dietary consultation Vitamin D deficiency Primary hypertension ([facility]) To follow with her PCP Insulin long-term use ([facility]) Hyperlipemia, mixed ([facility]) Continue with Zocor 10 mg once daily Microalbuminuria Class 3 severe obesity due to excess calories with serious comorbidity and body mass index (BMI) of50.0 to 59.9 in adult ([facility]) Diet and exercise reviewed with the patient Follow up in about 3 months (around 08/27/2024). documented in this encounterGolden Valley Memorial [id number] History of Present illness Narrative* Mckayla Blas NP - 04/14/2024 11:45 AM EDTAssociated Problem(s): Hyperpigmentation of skin Will try cerevue ointment to see if helps * Mckayla Blas NP - 04/14/2024 11:43 AM EDTAssociated Problem(s): Tobacco user Urged to quit * Mckayla Blas NP - 04/14/2024 11:43 AM EDTAssociated Problem(s): Type 2 diabetes mellitus with complication, with long-term current use of insulin ([facility]) Check blood sugars daily, follow [...] being taken. She does not see a world history teacher.Eye exam is not current. Hypertension This is [...] or chew. ergocalciferol (Vitamin D2) 1.25 MG (62713 UT) capsule TAKE 1 CAPSULE BY MOUTH ONE TIME PER WEEK furosemide (LASIX) 20 mg, Oral, Daily PRN, Take in the afternoon as needed furosemide (LASIX) 40 mg, Oral, Daily Glucose Blood (ACCU-CHEK JAQUI PLUS ) 4 times daily HumaLOG KWIKPEN 100 UNIT/ML injection Subcutaneous hydrALAZINE (APRESOLINE) 25 mg, Oral, 2 times daily HYDROcodone-acetaminophen (Oxbow) 5-325 MG tablet 1 tablet, 3 times [...] CT Albuminuria 09/17/2023 Angiomyolipoma Anxiety and depression ([facility]) 07/10/2023 Asthma ([facility]) 07/10/2023 Cellulitis of left lower extremity Cervical cancer ([facility]) 09/17/2023 Chronic pain of both knees 09/17/2023 COPD (chronic obstructive pulmonary disease) ([facility]) 07/10/2023 COPD exacerbation ([facility]) 09/17/2023 Decreased functional mobility 09/17/2023 Diabetic neuropathy ([facility]) 07/10/2023 Edema 07/10/2023 Elevated sed rate Elevated WBC count GERD (gastroesophageal reflux disease) 09/17/2023 Hyperlipidemia ([facility]) 09/17/2023 Hypertension ([facility]) 07/10/2023 Insomnia 09/17/2023 Lower extremity edema 09/17/2023 Obstructive sleep apnea 07/10/2023 PAD (peripheral artery disease) ([facility]) 09/17/2023 Pancreatitis 09/17/2023 Pneumonia 09/17/2023 Pulmonary hypertension ([facility]) 09/17/2023 Radiculopathy, lumbar region 09/17/2023 Tobacco user 09/17/2023 Type 2 diabetes mellitus with complication, with long-term current use of insulin ([facility]) 07/10/2023 Unilateral primary osteoarthritis, right [...] List Items Addressed This Visit Diabetic neuropathy ([facility]) Continue with lyricjuvenal GALLAGHERRRS reviewed Fu in 3 months Relevant Medications pregabalin (Lyrica) 300 MG capsule COPD (chronic obstructive pulmonary disease) ([facility]) - Primary Stable at this time, no changes in meds Encouraged smoking cessation Cont with dr Yañez Hypertension ([facility]) Stable on current meds Refill meds Relevant Medications hydrALAZINE (Apresoline) 25 MG tablet lisinopril 20 MG tablet Type 2 diabetes mellitus with complication, with long-term current use of insulin ([facility]) Check blood sugars daily, follow [...] Roflumilast 500 MCG tablet documented in this encounterGolden Valley Memorial [id number] Hospital Discharge instructions Patient Education 11/15/2022 14:09:21 [...] include: ?8 oz (237 mL) of milk, hnldtje-qdctvjarzmyn-vhzlj milk, and calcium- fortifiedfruit juice. Calcium-fortified means [...] potatoes, and [place] chard. ?Peanuts. ?Potato chips, wallisian fries, and baked potatoes with skin on. ?Nuts and nut products. ?Chocolate. If you regularly take a diuretic medicine, make sure to eat at least 1 or 2 servings of fruits or vegetables that are high in potassium each day. These include: ?Avocado. ?Banana. ?[place], prune, carrot, or tomato juice. ?Baked potato. [...] magnesium, fish oil, or vitamin B6. Take jhap-zsd-keebaza and prescription medicines only as told by [...] Casseroles. Pizza. Lasagna. Frozen meals. Potato chips. [place]er fries. The items listed above may not [...] provider. Document Revised: 03/06/2022 Document Reviewed: 03/06/2022 ElseGalenea Patient Education 2022 [email or web address] Follow Up Care 02/06/2022 11:44:09 With:GAVIOTA ADAMES PA-C, URL Address: [facility] [address] [place] [address] When: Unknown [facility] 02-16-2023 NoteCONSULTATION CONSULTATION DATE: 08/24/2022 HISTORY OF [...] We maintain her on pain medication with Oxbow 5/325 t.i.d., diclofenac 75 mg b.i.d. Her [...] her at this point. A refill for Oxbow 5/325 t.i.d. and diclofenac 75 mg b.i.d. will be sent to the pharmacy. Vitamin compliance and nutrition were discussed and enforced. I did highly encourage her to use exercise bands to increase the strength in her lower extremities. We will see her in three months' time, unless otherwise indicated, and patient agrees.[facility] [id number] NoteCONSULTATION CONSULTATION DATE: 05/11/2022 This 51-year-old female [...] 150. Medications include Lyrica 300 mg b.i.d., Oxbow 5/325 t.i.d., diclofenac 75 mg b.i.d. and [...] her medications today. We will maintain Lyrica, Oxbow and diclofenac at the set dose and frequency. We will follow-up in the clinic in three months' time. The patient is in agreement to this. Vitamin importance and nutrition were discussed.[facility] [id number] NoteCONSULTATION CONSULTATION DATE: 04/20/2022 HISTORY OF PRESENT [...] medications include Tylenol, Lyrica 300 mg b.i.d., Oxbow 5/325 t.i.d., amitriptyline, diclofenac and duloxetine. Patient's [...] will be followed up in the clinic.[facility] [id number] Evaluation note* Encounter Date Diagnosis Assessment Notes [...] the DANIEL. Thrombocytopenia is unclear etiology. [employer] Other 08-15-2022 Evaluation note* Encounter Date Diagnosis [...] with Dr. Souza and Dr. Arauz. [employer] Other 08-01-2022 Hospital Discharge instructions Patient Education [...] fried and sweet foods. General instructions Take ebxo-zkd-ruzlqrq and prescription medicines only as told by [...] 04/21/2010 Document Revised: 10/16/2019 Document Reviewed: 07/11/2018 [email or web address] Patient Education 2020 [employer]. Follow Up Care 01/05/2022 12:02:03 With:REGLA PHIPPS, Elbert Joya, URL Address: [facility] [address] [place] [address] [phone] When:Within 6 Month(s) Comments:w/ repeat CT A/P [facility] 07-14-2022 NoteCONSULTATION PROCEDURE DATE: 01/19/2022 [...] pattern and the patient tolerated it well. [facility] Signed and Approved by: GIL VALENZUELA . 01/27/2022 14:15:00[facility]07-14-2022 NoteCONSULTATION CONSULTATION DATE: 01/19/2022 This is [...] today. Medications include Lyrica 300 mg b.i.d., Oxbow 5/325 t.i.d., diclofenac 75 mg b.i.d. and [...] in three months' time unless otherwise indicated. [facility] Signed and Approved by: GIL VALENZUELA . 01/27/2022 14:15:00[facility] HospitalEvaluation + Plan note Future Appointments Appointment Date:08/14/2022 09:15:00 AM Scheduled Provider:Elbert ARAUZ MD Location[facility] Appointment Type:URO Office Visit [facility] evaluation + Plan note Future Appointments Appointment Date:04/22/2024 10:00:00 AM Scheduled Provider:GAVIOTA ADAMES PA-C Location:[facility] Appointment Type:URO Office Visit [facility] evaluation note* Diagnosis Type 2 [...] complications ([facility]) Anxiety and depression ([facility]) Gastro-esophageal reflux disease without esophagitis Edema, unspecified Edema Diabetic polyneuropathy associated with type 2 diabetes mellitus ([facility]) Chronic obstructive pulmonary disease, unspecified ([facility]) Pulmonary emphysema, unspecified emphysema type ([facility]) Bilateral lower extremity edema Tobacco user Tobacco use disorder Hyperpigmentation of skin Other dyschromia documented in this encounter [facility] HealthcareEvaluation note* Diagnosis Obstructive sleep apnea- Primary Obstructive sleep apnea (adult) (pediatric) Pulmonary emphysema, unspecified emphysema type ([facility]) Primary hypertension ([facility]) Unspecified essential hypertension Type 2 diabetes mellitus with complication, with long-term current use of insulin ([facility]) Anxiety and depression ([facility]) Bilateral lower extremity edema Pulmonary emphysema, unspecified emphysema type ([facility])- Primary Primary hypertension ([facility] Unspecified essential hypertension Class 3 severe obesity with serious comorbidity and body mass index (BMI) of 50.0 to 59.9 in adult,unspecified obesity type ([facility]) Obstructive sleep apnea Obstructive sleep apnea (adult) (pediatric) Pulmonary hypertension ([facility]) Other chronic pulmonary heart diseases Tobacco user Tobacco use disorder Cardiomegaly Primary hypertension ([facility])- Primary Unspecified essential hypertension Gastroesophageal reflux disease, unspecified whether esophagitis present Type 2 diabetes mellitus with complication, with long-term current use of insulin ([facility]) Mixed hyperlipidemia ([facility]) Mixed hyperlipidemia Tobacco user Tobacco use disorder Encounter for screening mammogram for malignant neoplasm of breast Chronic obstructive pulmonary disease, unspecified ([facility]) Other specified chronic obstructive pulmonary disease ([facility]) Anxiety and depression ([facility]) Edema, unspecified Edema Hyperlipidemia, unspecified ([facility]) Diabetic polyneuropathy associated with type 2 diabetes mellitus ([facility]) Gout, unspecified cause, unspecified chronicity, unspecified site Non-seasonal allergic rhinitis, unspecified trigger Bilateral lower extremity edema COPD exacerbation ([facility]) Obstructive chronic bronchitis with exacerbation Pulmonary emphysema, unspecified emphysema type ([facility]) Venous insufficiency Unspecified venous (peripheral) insufficiency Candidiasis of breast COPD exacerbation ([facility])- Primary Obstructive chronic bronchitis with exacerbation Pulmonary hypertension ([facility]) Other chronic pulmonary heart diseases Class 3 severe obesity with serious comorbidity and body mass index (BMI) of 50.0 to 59.9 in adult,unspecified obesity type ([facility]) Encounter for subsequent annual wellness visit (AWV) in Medicare patient- Primary Type 2 diabetes mellitus with unspecified complications (CMS/HCC) Pulmonary emphysema, unspecified emphysema type (CMS/HCC) Moderate persistent asthma without complication (CMS/HCC) Primary hypertension (CMS/HCC) Unspecified essential hypertension Type 2 diabetes mellitus with complication, with long-term current use of insulin ([facility]) Class 3 severe obesity with serious comorbidity and body mass index (BMI) of 50.0 to 59.9 in adult,unspecified obesity type (CMS/HCC) Tobacco user Tobacco use disorder Other headache syndrome Malignant neoplasm of cervix uteri, unspecified (CMS/HCC) Other specified disorders of adrenal gland ([facility]) Major depressive disorder, single episode, mild (HCC) ([facility]) Major depressive disorder, single episode, mild Non-pressure chronic ulcer of other part of left lower leg with fat layer exposed ([facility]) Chronic respiratory failure, unspecified whether with hypoxia or hypercapnia ([facility]) Disorder of adrenal gland, unspecified ([facility]) Non-pressure chronic ulcer of other part of right lower leg limited to breakdown of skin ([facility]) Non-recurrent acute suppurative otitis media of left ear without spontaneous rupture of tympanic membrane Primary hypertension ([facility])- Primary Unspecified essential hypertension Insomnia [...] [facility]) Chronic obstructive pulmonary disease, unspecified (CMS/HCC) Pulmonary emphysema, unspecified emphysema type (CMS/HCC) Bilateral lower extremity edema Tobacco user Tobacco use disorder Hyperpigmentation of skin Other dyschromia Type 2 diabetes mellitus with hyperglycemia, with long-term current use of insulin ([facility])- Primary Encounter for dietary consultation Vitamin D deficiency Primary hypertension (CMS/HCC) Unspecified essential hypertension Insulin long-term use ([facility]) Encounter for long-term (current) use of insulin Hyperlipemia, mixed ([facility]) Mixed hyperlipidemia Microalbuminuria Proteinuria Class 3 severe obesity due to excess calories with serious comorbidity and body mass index (BMI) of50.0 to 59.9 in adult ([facility]) documented in this encounter [facility] HealthcareEvaluation note* Diagnosis Hyperlipidemia, unspecified ([facility]) Bilateral lower extremity edema documented in this encounter [facility] HealthcareEvaluation note* Diagnosis Vitamin D deficiency, unspecified documented in this encounter [facility] HealthcareEvaluation note* Diagnosis Obstructive sleep apnea- Primary Obstructive sleep apnea (adult) (pediatric) Pulmonary emphysema, unspecified emphysema type ([facility]) Primary hypertension ([facility]) Unspecified essential hypertension Type 2 diabetes mellitus with complication, with long-term current use of insulin ([facility]) Anxiety and depression ([facility]) Bilateral lower extremity edema Pulmonary emphysema, unspecified emphysema type ([facility])- Primary Primary hypertension ([facility] Unspecified essential hypertension Class 3 severe obesity with serious comorbidity and body mass index (BMI) of 50.0 to 59.9 in adult,unspecified obesity type ([facility]) Obstructive sleep apnea Obstructive sleep apnea (adult) (pediatric) Pulmonary hypertension ([facility]) Other chronic pulmonary heart diseases Tobacco user Tobacco use disorder Cardiomegaly Primary hypertension ([facility])- Primary Unspecified essential hypertension Gastroesophageal reflux disease, unspecified whether esophagitis present Type 2 diabetes mellitus with complication, with long-term current use of insulin ([facility]) Mixed hyperlipidemia ([facility]) Mixed hyperlipidemia Tobacco user Tobacco use disorder Encounter for screening mammogram for malignant neoplasm of breast Chronic obstructive pulmonary disease, unspecified ([facility]) Other specified chronic obstructive pulmonary disease ([facility]) Anxiety and depression ([facility]) Edema, unspecified Edema Hyperlipidemia, unspecified ([facility]) Diabetic polyneuropathy associated with type 2 diabetes mellitus ([facility]) Gout, unspecified cause, unspecified chronicity, unspecified site Non-seasonal allergic rhinitis, unspecified trigger Bilateral lower extremity edema COPD exacerbation ([facility]) Obstructive chronic bronchitis with exacerbation Pulmonary emphysema, unspecified emphysema type ([facility]) Venous insufficiency Unspecified venous (peripheral) insufficiency Candidiasis of breast COPD exacerbation ([facility])- Primary Obstructive chronic bronchitis with exacerbation Pulmonary hypertension ([facility]) Other chronic pulmonary heart diseases Class 3 severe obesity with serious comorbidity and body mass index (BMI) of 50.0 to 59.9 in adult,unspecified obesity type ([facility]) Encounter for subsequent annual wellness [...] left lower leg with fat layer exposed (CMS/[facility]) Chronic respiratory failure, unspecified whether with hypoxia or hypercapnia (CMS/[facility]) Disorder of adrenal gland, unspecified (CMS/[facility]) Non-pressure chronic ulcer of other [...] with unspecified complications (CMS/HCC) Anxiety and depression (CMS/[facility]) Gastro-esophageal reflux disease without esophagitis Edema, unspecified Edema Diabetic polyneuropathy associated with type 2 diabetes mellitus (CMS/[facility]) Chronic obstructive pulmonary disease, unspecified (CMS/HCC) Pulmonary [...] 50.0 to 59.9 in adult,unspecified obesity type ([facility]/HCC) Obstructive sleep apnea Obstructive sleep apnea (adult) [...] 50.0 to 59.9 in adult,unspecified obesity type ([facility]) Encounter for subsequent annual wellness visit (AWV) in Medicare patient- Primary Type 2 diabetes mellitus with unspecified complications (CMS/[facility]) Pulmonary emphysema, unspecified emphysema type (CMS/HCC) Moderate persistent asthma without complication (CMS/HCC) Primary hypertension (CMS/[facility]) Unspecified essential hypertension Type 2 diabetes mellitus with complication, with long-term current use of insulin ([facility]) Class 3 severe obesity with serious comorbidity and body mass index (BMI) of 50.0 to 59.9 in adult,unspecified obesity type ([facility]/HCC) Tobacco user Tobacco use disorder Other headache [...] with unspecified complications (CMS/HCC) Anxiety and depression (CMS/[facility]) Gastro-esophageal reflux disease without esophagitis Edema, unspecified Edema Diabetic polyneuropathy associated with type 2 diabetes mellitus (CMS/[facility]) Chronic obstructive pulmonary disease, unspecified (CMS/[facility]) Pulmonary emphysema, unspecified emphysema type (CMS/HCC) Bilateral lower extremity edema Tobacco user Tobacco use disorder Hyperpigmentation of skin Other dyschromia Primary hypertension (CMS/[facility])- Primary Unspecified essential hypertension Diabetic polyneuropathy associated with type 2 diabetes mellitus (CMS/[facility]) Pulmonary emphysema, unspecified emphysema type (CMS/HCC) Critical limb ischemia of right lower extremity (CMS/[facility]) PAD (peripheral artery disease) ([facility]) Unspecified peripheral vascular disease Gastroesophageal reflux disease, unspecified whether esophagitis present Bilateral lower extremity edema Venous ulcer of right leg (CMS/[facility]) Type 2 diabetes mellitus with complication, with long-term current use of insulin (CMS/[facility]) Tobacco user Tobacco use disorder Encounter for smoking cessation counseling Kidney stone Calculus of kidney Adrenal mass 1 cm to 4 cm in diameter ([facility]) Radiculopathy, lumbar region Thoracic or lumbosacral neuritis or radiculitis, unspecified Non-seasonal allergic rhinitis, unspecified trigger Type 2 diabetes mellitus with unspecified complications (CMS/[facility]) documented in this encounter [facility] HealthcareEvaluation note* Diagnosis Obstructive sleep apnea- [...] obstructive pulmonary disease (CMS/HCC) Anxiety and depression (CMS/[facility]) Edema, [...] 50.0 to 59.9 in adult,unspecified obesity type ([facility]/HCC) Encounter for subsequent annual wellness visit (AWV) in Medicare patient- Primary Type 2 diabetes mellitus with unspecified complications (CMS/HCC) Pulmonary emphysema, unspecified emphysema type (CMS/HCC) Moderate persistent asthma without complication (CMS/HCC) Primary hypertension (CMS/HCC) Unspecified essential hypertension Type 2 diabetes mellitus with complication, with long-term current use of insulin (CMS/[facility]) Class 3 severe obesity with [...] left lower leg with fat layer exposed (CMS/[facility]) Chronic respiratory failure, unspecified whether with hypoxia or hypercapnia (CMS/HCC) Disorder of adrenal gland, unspecified (CMS/HCC) Non-pressure chronic ulcer of other part of right lower leg limited to breakdown of skin (CMS/HCC) Non-recurrent acute suppurative otitis media of left ear without spontaneous rupture of tympanic membrane Primary hypertension ([facility]/HCC)- Primary Unspecified essential hypertension Insomnia Insomnia, unspecified [facility] Pulmonary emphysema, unspecified emphysema type (CMS/[facility]) Bilateral lower extremity edema Tobacco user Tobacco use disorder Hyperpigmentation of skin Other dyschromia Primary hypertension (CMS/[facility])- Primary Unspecified essential hypertension Diabetic polyneuropathy associated with type 2 diabetes mellitus (CMS/[facility]) Pulmonary emphysema, unspecified emphysema type ([facility]) Critical limb ischemia of right lower extremity ([facility]) PAD (peripheral artery disease) ([facility]) Unspecified peripheral vascular disease Gastroesophageal reflux disease, unspecified whether esophagitis present Bilateral lower extremity edema Venous ulcer of right leg ([facility]) Type 2 diabetes mellitus with complication, with long-term current use of insulin ([facility]) Tobacco user Tobacco use disorder Encounter for smoking cessation counseling Kidney stone Calculus of kidney Adrenal mass 1 cm to 4 cm in diameter ([facility]) Radiculopathy, lumbar region Thoracic or lumbosacral neuritis or radiculitis, unspecified Non-seasonal allergic rhinitis, unspecified trigger Type 2 diabetes mellitus with unspecified complications (CMS/HCC) Anxiety and depression (CMS/[facility])- Primary Morbid (severe) obesity due to excess calories (CMS/[facility]) Body mass index (BMI) 50.0-59.9, adult ([facility]) Malignant neoplasm of cervix uteri, unspecified (CMS/[facility]) Diabetic polyneuropathy associated with type 2 diabetes mellitus (CMS/[facility]) Chronic diastolic heart failure ([facility]) Chronic diastolic heart failure Primary hypertension ([facility]) Unspecified essential hypertension 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 ([facility]) Gastroesophageal reflux disease, unspecified whether esophagitis present Bilateral lower extremity edema Type 2 diabetes mellitus with complication, with long-term current use of insulin ([facility]) Tobacco user Tobacco use disorder Mixed hyperlipidemia ([facility]) Mixed hyperlipidemia Gout, unspecified cause, unspecified chronicity, unspecified site Vitamin deficiency Unspecified vitamin deficiency Gastro-esophageal reflux disease without esophagitis Edema, unspecified Edema Hyperlipidemia, unspecified ([facility]) Encounter for smoking cessation counseling Venous ulcer of right leg ([facility]) Antibiotic-induced yeast infection documented in this encounter [facility] HealthcareEvaluation note* Diagnosis Obstructive sleep apnea- Primary Obstructive sleep apnea (adult) (pediatric) Pulmonary emphysema, unspecified emphysema type ([facility]) Primary hypertension ([facility]) Unspecified essential hypertension Type 2 diabetes mellitus with complication, with long-term current use of insulin ([facility]) Anxiety and depression ([facility]) Bilateral lower extremity edema Pulmonary emphysema, unspecified emphysema type ([facility])- Primary Primary hypertension ([facility]) Unspecified essential hypertension Class 3 severe obesity with serious comorbidity and body mass index (BMI) of 50.0 to 59.9 in adult,unspecified obesity type Obstructive sleep apnea Obstructive sleep apnea (adult) (pediatric) Pulmonary hypertension ([facility]) Other chronic pulmonary heart diseases Tobacco user Tobacco use disorder Cardiomegaly Primary hypertension ([facility])- Primary Unspecified essential hypertension Gastroesophageal reflux disease, unspecified whether esophagitis present Type 2 diabetes mellitus with complication, with long-term current use of insulin ([facility]) Mixed hyperlipidemia ([facility]) Mixed hyperlipidemia Tobacco user Tobacco use disorder Encounter for screening mammogram for malignant neoplasm of breast Chronic obstructive pulmonary disease, unspecified Other specified chronic obstructive pulmonary disease Anxiety and depression ([facility]) Edema, unspecified Edema Hyperlipidemia, unspecified ([facility]) Diabetic polyneuropathy associated with type 2 diabetes mellitus ([facility]) Gout, unspecified cause, unspecified chronicity, unspecified site Non-seasonal allergic rhinitis, unspecified trigger Bilateral lower extremity edema COPD exacerbation ([facility]) Obstructive chronic bronchitis with exacerbation Pulmonary emphysema, unspecified emphysema type ([facility]) Venous insufficiency Unspecified venous (peripheral) insufficiency Candidiasis of breast [facility] Primary Obstructive chronic bronchitis with exacerbation Pulmonary hypertension (CMS/[facility]) Other chronic pulmonary heart diseases Class 3 severe obesity with serious comorbidity and body mass index (BMI) of 50.0 to 59.9 in adult,unspecified obesity type Encounter for subsequent annual wellness visit (AWV) in Medicare patient- Primary Type 2 diabetes mellitus with unspecified complications Pulmonary emphysema, unspecified emphysema type (CMS/[facility]) Moderate persistent asthma without complication (CMS/[facility]) Primary hypertension ([facility]) Unspecified essential hypertension Type 2 diabetes mellitus with complication, with long-term current use of insulin ([facility]) Class 3 severe obesity with serious comorbidity and body mass index (BMI) of 50.0 to 59.9 in adult,unspecified obesity type Tobacco user Tobacco use disorder Other headache syndrome Malignant neoplasm of cervix uteri, unspecified Other specified disorders of adrenal gland Major depressive disorder, single episode, mild (HCC) ([facility]) Major depressive disorder, single episode, mild Non-pressure chronic ulcer of other part of left lower leg with fat layer exposed Chronic respiratory failure, unspecified whether with hypoxia or hypercapnia Disorder of adrenal gland, unspecified Non-pressure chronic ulcer of other part of right lower leg limited to breakdown of skin ([facility]) Non-recurrent acute suppurative otitis media of left ear without spontaneous rupture of tympanic membrane Primary hypertension ([facility])- Primary Unspecified essential hypertension Insomnia Insomnia, unspecified Type 2 diabetes mellitus with complication, with long-term current use of insulin (CMS/[facility]) Non-seasonal allergic rhinitis, unspecified trigger Type 2 diabetes mellitus with unspecified complications Anxiety and depression ([facility]) Gastro-esophageal reflux disease without esophagitis Edema, unspecified Edema Diabetic polyneuropathy associated with type 2 diabetes mellitus ([facility]) Chronic obstructive pulmonary disease, unspecified Pulmonary emphysema, unspecified emphysema type (CMS/HCC) Bilateral lower extremity edema Tobacco user Tobacco use disorder Hyperpigmentation of skin Other dyschromia Primary hypertension (CMS/HCC)- Primary Unspecified essential hypertension Diabetic polyneuropathy associated with type 2 diabetes mellitus (CMS/[facility]) Pulmonary emphysema, unspecified emphysema type (CMS/HCC) Critical limb ischemia of right lower extremity (CMS/[facility]) PAD (peripheral artery disease) ([facility]) Unspecified peripheral vascular disease Gastroesophageal reflux disease, unspecified whether esophagitis present Bilateral lower extremity edema Venous ulcer of right leg (CMS/[facility]) Type 2 diabetes mellitus with complication, with long-term current use of insulin ([facility]) Tobacco user Tobacco use disorder Encounter for smoking cessation counseling Kidney stone Calculus of kidney Adrenal mass 1 cm to 4 cm in diameter ([facility]) Radiculopathy, lumbar region Thoracic or lumbosacral neuritis or radiculitis, unspecified Non-seasonal allergic rhinitis, unspecified trigger Type 2 diabetes mellitus with unspecified complications Anxiety and depression ([facility])- Primary Morbid (severe) obesity due to excess calories ([facility]) Body mass index (BMI) 50.0-59.9, adult ([facility]) Malignant neoplasm of cervix uteri, unspecified Diabetic polyneuropathy associated with type 2 diabetes mellitus ([facility]) Chronic diastolic heart failure ([facility]) Chronic diastolic heart failure Primary hypertension ([facility]) Unspecified essential hypertension 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 Gastroesophageal reflux disease, unspecified whether esophagitis present Bilateral lower extremity edema Type 2 diabetes mellitus with complication, with long-term current use of insulin ([facility]) Tobacco user Tobacco use disorder Mixed hyperlipidemia ([facility]) Mixed hyperlipidemia Gout, unspecified cause, unspecified chronicity, unspecified site Vitamin deficiency Unspecified vitamin deficiency Gastro-esophageal reflux disease without esophagitis Edema, unspecified Edema Hyperlipidemia, unspecified ([facility]) Encounter for smoking cessation counseling Venous ulcer of right leg ([facility]) Antibiotic-induced yeast infection Type 2 diabetes mellitus with hyperglycemia, with long-term current use of insulin ([facility])- Primary Encounter for dietary consultation Vitamin D deficiency Primary hypertension ([facility]) Unspecified essential hypertension Insulin long-term use ([facility]) Encounter for long-term (current) use of insulin Hyperlipemia, mixed ([facility]) Mixed hyperlipidemia Microalbuminuria Proteinuria Class 3 severe obesity due to excess calories with serious comorbidity and body mass index (BMI) of50.0 to 59.9 in adult documented in this encounter [facility] HealthcareEvaluation note* Diagnosis Obstructive sleep apnea- Primary Obstructive sleep apnea (adult) (pediatric) Pulmonary emphysema, unspecified emphysema type ([facility]) Primary hypertension ([facility]) Unspecified essential hypertension Type 2 diabetes mellitus with complication, with long-term current use of insulin ([facility]) Anxiety and depression ([facility]) Bilateral lower extremity edema Pulmonary emphysema, unspecified emphysema type ([facility])- Primary Primary hypertension (CMS/[facility]) Unspecified essential hypertension Class 3 severe obesity with serious comorbidity and body mass index (BMI) of 50.0 to 59.9 in adult,unspecified obesity type Obstructive sleep apnea Obstructive sleep apnea (adult) (pediatric) Pulmonary hypertension ([facility]) Other chronic pulmonary heart diseases Tobacco user Tobacco use disorder Cardiomegaly Primary hypertension ([facility])- Primary Unspecified essential hypertension Gastroesophageal reflux disease, unspecified whether esophagitis present Type 2 diabetes mellitus with complication, with long-term current use of insulin ([facility] Mixed hyperlipidemia ([facility]) Mixed hyperlipidemia Tobacco user Tobacco use disorder Encounter for screening mammogram for malignant neoplasm of breast Chronic obstructive pulmonary disease, unspecified Other specified chronic obstructive pulmonary disease Anxiety and depression ([facility]) Edema, unspecified Edema Hyperlipidemia, unspecified ([facility]) Diabetic polyneuropathy associated with type 2 diabetes mellitus ([facility]) Gout, unspecified cause, unspecified chronicity, unspecified site Non-seasonal allergic rhinitis, unspecified trigger Bilateral lower extremity edema COPD exacerbation ([facility]) Obstructive chronic bronchitis with exacerbation Pulmonary emphysema, unspecified emphysema type ([facility]) Venous insufficiency Unspecified venous (peripheral) insufficiency Candidiasis of breast COPD exacerbation ([facility])- Primary Obstructive chronic bronchitis with exacerbation Pulmonary hypertension ([facility]) Other chronic pulmonary heart diseases Class 3 severe obesity with serious comorbidity and body mass index (BMI) of 50.0 to 59.9 in adult,unspecified obesity type Encounter for subsequent annual wellness visit (AWV) in Medicare patient- Primary Type 2 diabetes mellitus with unspecified complications Pulmonary emphysema, unspecified emphysema type ([facility]) Moderate persistent asthma without complication ([facility]) Primary hypertension ([facility]) Unspecified essential hypertension Type 2 diabetes mellitus with complication, with long-term current use of insulin ([facility]) Class 3 severe obesity with serious comorbidity and body mass index (BMI) of 50.0 to 59.9 in adult,unspecified obesity type Tobacco user Tobacco use disorder Other headache syndrome Malignant neoplasm of cervix uteri, unspecified Other specified disorders of adrenal gland Major depressive disorder, single episode, mild (HCC) ([facility]) Major depressive disorder, single episode, mild Non-pressure chronic ulcer of other part of left lower leg with fat layer exposed Chronic respiratory failure, unspecified whether with hypoxia or hypercapnia Disorder of adrenal gland, unspecified Non-pressure chronic ulcer of other part of right lower leg limited to breakdown of skin ([facility]) Non-recurrent acute suppurative otitis media of left ear without spontaneous rupture of tympanic membrane Primary hypertension ([facility])- Primary Unspecified essential hypertension Insomnia Insomnia, unspecified Type 2 diabetes mellitus with complication, with long-term current use of insulin ([facility]) Non-seasonal allergic rhinitis, unspecified trigger Type 2 diabetes mellitus with unspecified complications Anxiety and depression ([facility]) Gastro-esophageal reflux disease without esophagitis Edema, unspecified Edema Diabetic polyneuropathy associated with type 2 diabetes mellitus ([facility]) Chronic obstructive pulmonary disease, unspecified Pulmonary emphysema, unspecified emphysema type ([facility]) Bilateral lower extremity edema Tobacco user Tobacco use disorder Hyperpigmentation of skin Other dyschromia Primary hypertension ([facility])- Primary Unspecified essential hypertension Diabetic polyneuropathy associated with type 2 diabetes mellitus ([facility]) Pulmonary emphysema, unspecified emphysema type ([facility]) Critical limb ischemia of right lower extremity ([facility]) PAD (peripheral artery disease) ([facility]) Unspecified peripheral vascular disease Gastroesophageal reflux disease, unspecified whether esophagitis present Bilateral lower extremity edema Venous ulcer of right leg ([facility]) Type 2 diabetes mellitus with complication, with long-term current use of insulin ([facility]) Tobacco user Tobacco use disorder Encounter for smoking cessation counseling Kidney stone Calculus of kidney Adrenal mass 1 cm to 4 cm in diameter ([facility]) Radiculopathy, lumbar region Thoracic or lumbosacral neuritis or radiculitis, unspecified Non-seasonal allergic rhinitis, unspecified trigger Type 2 diabetes mellitus with unspecified complications Anxiety and depression ([facility])- Primary Morbid (severe) obesity due to excess calories ([facility]) Body mass index (BMI) 50.0-59.9, adult ([facility]) Malignant neoplasm of cervix uteri, unspecified Diabetic polyneuropathy associated with type 2 diabetes mellitus ([facility] Chronic diastolic heart failure ([facility] Chronic diastolic heart failure Primary hypertension ([facility]) Unspecified essential hypertension 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 Gastroesophageal reflux disease, unspecified whether esophagitis present Bilateral lower extremity edema Type 2 diabetes mellitus with complication, with long-term current use of insulin ([facility]) Tobacco user Tobacco use disorder Mixed hyperlipidemia ([facility]) Mixed hyperlipidemia Gout, unspecified cause, unspecified chronicity, unspecified site Vitamin deficiency Unspecified vitamin deficiency Gastro-esophageal reflux disease without esophagitis Edema, unspecified Edema Hyperlipidemia, unspecified ([facility]) Encounter for smoking cessation counseling Venous ulcer of right leg ([facility]) Antibiotic-induced yeast infection Chronic obstructive pulmonary disease, unspecified documented in this encounter [facility] HealthcareEvaluation note* Diagnosis Obstructive sleep apnea- Primary Obstructive sleep apnea (adult) (pediatric) Pulmonary emphysema, unspecified emphysema type ([facility]) Primary hypertension ([facility]) Unspecified essential hypertension Type 2 diabetes mellitus with complication, with long-term current use of insulin ([facility]) Anxiety and depression ([facility]) Bilateral lower extremity edema Pulmonary emphysema, unspecified emphysema type ([facility])- Primary Primary hypertension ([facility]) Unspecified essential hypertension Class 3 severe obesity with serious comorbidity and body mass index (BMI) of 50.0 to 59.9 in adult,unspecified obesity type Obstructive sleep apnea Obstructive sleep apnea (adult) (pediatric) Pulmonary hypertension ([facility]) Other chronic pulmonary heart diseases Tobacco user Tobacco use disorder Cardiomegaly Primary hypertension ([facility])- Primary Unspecified essential hypertension Gastroesophageal reflux disease, unspecified whether esophagitis present Type 2 diabetes mellitus with complication, with long-term current use of insulin ([facility]) Mixed hyperlipidemia ([facility]) Mixed hyperlipidemia Tobacco user Tobacco use disorder Encounter for screening mammogram for malignant neoplasm of breast Chronic obstructive pulmonary disease, unspecified Other specified chronic obstructive pulmonary disease Anxiety and depression ([facility]) Edema, unspecified Edema Hyperlipidemia, unspecified ([facility]) Diabetic polyneuropathy associated with type 2 diabetes mellitus ([facility]) Gout, unspecified cause, unspecified chronicity, unspecified site Non-seasonal allergic rhinitis, unspecified trigger Bilateral lower extremity edema COPD exacerbation ([facility]) Obstructive chronic bronchitis with exacerbation Pulmonary emphysema, unspecified emphysema type ([facility]) Venous insufficiency Unspecified venous (peripheral) insufficiency Candidiasis of breast COPD exacerbation ([facility])- Primary Obstructive chronic bronchitis with exacerbation Pulmonary hypertension ([facility]) Other chronic pulmonary heart diseases Class 3 severe obesity with serious comorbidity and body mass index (BMI) of 50.0 to 59.9 in adult,unspecified obesity type Encounter for subsequent annual wellness visit (AWV) in Medicare patient- Primary Type 2 diabetes mellitus with unspecified complications Pulmonary emphysema, unspecified emphysema type ([facility]) Moderate persistent asthma without complication ([facility]) Primary hypertension ([facility]) Unspecified essential hypertension Type 2 diabetes mellitus with complication, with long-term current use of insulin ([facility]) Class 3 severe obesity with serious comorbidity and body mass index (BMI) of 50.0 to 59.9 in adult,unspecified obesity type Tobacco user Tobacco use disorder Other headache syndrome Malignant neoplasm of cervix uteri, unspecified Other specified disorders of adrenal gland Major depressive disorder, single episode, mild (HCC) ([facility]) Major depressive disorder, single episode, mild Non-pressure chronic ulcer of other part of left lower leg with fat layer exposed Chronic respiratory failure, unspecified whether with hypoxia or hypercapnia Disorder of adrenal gland, unspecified Non-pressure chronic ulcer of other part of right lower leg limited to breakdown of skin ([facility]) Non-recurrent acute suppurative otitis media of left ear without spontaneous rupture of tympanic membrane Primary hypertension ([facility])- Primary Unspecified essential hypertension Insomnia Insomnia, unspecified Type 2 diabetes mellitus with complication, with long-term current use of insulin ([facility]) Non-seasonal allergic rhinitis, unspecified trigger Type 2 diabetes mellitus with unspecified complications Anxiety and depression ([facility]) Gastro-esophageal reflux disease without esophagitis Edema, unspecified Edema Diabetic polyneuropathy associated with type 2 diabetes mellitus ([facility]) Chronic obstructive pulmonary disease, unspecified Pulmonary emphysema, unspecified emphysema type ([facility]) Bilateral lower extremity edema Tobacco user Tobacco use disorder Hyperpigmentation of skin Other dyschromia Primary hypertension ([facility])- Primary Unspecified essential hypertension Diabetic polyneuropathy associated with type 2 diabetes mellitus ([facility]) Pulmonary emphysema, unspecified emphysema type ([facility]) Critical limb ischemia of right lower extremity ([facility]) PAD (peripheral artery disease) ([facility]) Unspecified peripheral vascular disease Gastroesophageal reflux disease, unspecified whether esophagitis present Bilateral lower extremity edema Venous ulcer of right leg ([facility]) Type 2 diabetes mellitus with complication, with long-term current use of insulin ([facility]) Tobacco user Tobacco use disorder Encounter for smoking cessation counseling Kidney stone Calculus of kidney Adrenal mass 1 cm to 4 cm in diameter ([facility]) Radiculopathy, lumbar region Thoracic or lumbosacral neuritis or radiculitis, unspecified Non-seasonal allergic rhinitis, unspecified trigger Type 2 diabetes mellitus with unspecified complications Anxiety and depression ([facility])- Primary Morbid (severe) obesity due to excess calories ([facility]) Body mass index (BMI) 50.0-59.9, adult ([facility]) Malignant neoplasm of cervix uteri, unspecified Diabetic polyneuropathy associated with type 2 diabetes mellitus ([facility]) Chronic diastolic heart failure ([facility]) Chronic diastolic heart failure Primary hypertension ([facility]) Unspecified essential hypertension 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 Gastroesophageal reflux disease, unspecified whether esophagitis present Bilateral lower extremity edema Type 2 diabetes mellitus with complication, with long-term current use of insulin ([facility]) Tobacco user Tobacco use disorder Mixed hyperlipidemia ([facility]) Mixed hyperlipidemia Gout, unspecified cause, unspecified chronicity, unspecified site Vitamin deficiency Unspecified vitamin deficiency Gastro-esophageal reflux disease without esophagitis Edema, unspecified Edema Hyperlipidemia, unspecified ([facility]) Encounter for smoking cessation counseling Venous ulcer of right leg ([facility]) Antibiotic-induced yeast infection Primary hypertension ([facility])- Primary Unspecified essential hypertension Diabetic polyneuropathy associated with type 2 diabetes mellitus ([facility] Chronic diastolic heart failure ([facility]) Chronic diastolic heart failure Bilateral lower extremity edema Morbid (severe) obesity due to excess calories ([facility]) Type 2 diabetes mellitus with complication, with long-term current use of insulin ([facility]) Anxiety and depression ([facility]) Cigarette nicotine dependence without complication Encounter for screening mammogram for malignant neoplasm of breast Insomnia Insomnia, unspecified Non-seasonal allergic rhinitis, unspecified trigger Type 2 diabetes mellitus with unspecified complications Vitamin D deficiency, unspecified Gastro-esophageal reflux disease without esophagitis PAD (peripheral artery disease) ([facility]) Unspecified peripheral vascular disease Gastroesophageal reflux disease, unspecified whether esophagitis present Venous ulcer of right leg ([facility]) [facility] [...] 50.0 to 59.9 in adult,unspecified obesity type ([facility]) Obstructive sleep apnea [...] 50.0 to 59.9 in adult,unspecified obesity type ([facility]) Encounter for subsequent [...] 50.0 to 59.9 in adult,unspecified obesity type ([facility]) Tobacco user Tobacco use disorder [...] Critical limb ischemia of right lower extremity ([facility]) PAD (peripheral artery disease) Unspecified [...] (severe) obesity due to excess calories ([facility]) Body mass index (BMI) 50.0-59.9, adult ([facility]) Malignant neoplasm of cervix uteri, unspecified ([facility] [...] diabetes mellitus (HCC) Chronic diastolic heart failure ([facility]) Chronic diastolic heart failure Bilateral lower extremity edema Morbid (severe) obesity due to excess calories ([facility]) Type 2 diabetes mellitus with [...] Primary hypertension Unspecified essential hypertension Pulmonary hypertension ([facility]) Other chronic pulmonary heart diseases Morbid (severe) obesity due to excess calories ([facility]) Type 2 diabetes mellitus with complication, with long-term current use of insulin ([facility]) Anxiety and depression Fever, unspecified fever cause Hyperlipidemia, unspecified Tobacco user Tobacco use disorder Encounter for smoking cessation counseling documented in this encounter [facility] HealthcareEvaluation note* Diagnosis Obstructive sleep apnea- Primary Obstructive sleep apnea (adult) (pediatric) Pulmonary emphysema, unspecified emphysema type ([facility]) Primary hypertension ([facility]) Unspecified essential hypertension Type 2 diabetes mellitus with complication, with long-term current use of insulin ([facility]) Anxiety and depression ([facility]) Bilateral lower extremity edema Pulmonary emphysema, unspecified emphysema type ([facility])- Primary Primary hypertension ([facility]) Unspecified essential hypertension Class 3 severe obesity with serious comorbidity and body mass index (BMI) of 50.0 to 59.9 in adult,unspecified obesity type Obstructive sleep apnea Obstructive sleep apnea (adult) (pediatric) Pulmonary hypertension ([facility]) Other chronic pulmonary heart diseases Tobacco user Tobacco use disorder Cardiomegaly Primary hypertension ([facility])- Primary Unspecified essential hypertension Gastroesophageal reflux disease, unspecified whether esophagitis present Type 2 diabetes mellitus with complication, with long-term current use of insulin ([facility] Mixed hyperlipidemia ([facility]) Mixed hyperlipidemia Tobacco user Tobacco use disorder Encounter for screening mammogram for malignant neoplasm of breast Chronic obstructive pulmonary disease, unspecified Other specified chronic obstructive pulmonary disease Anxiety and depression ([facility]) Edema, unspecified Edema Hyperlipidemia, unspecified ([facility]) Diabetic polyneuropathy associated with type 2 diabetes mellitus ([facility]) Gout, unspecified cause, unspecified chronicity, [...] unspecified complications Pulmonary emphysema, unspecified emphysema type ([facility]) Moderate persistent asthma without complication ([facility]) Primary hypertension ([facility]) Unspecified essential hypertension Type 2 diabetes mellitus with complication, with long-term current use of insulin ([facility]) Class 3 severe obesity with serious comorbidity and body mass index (BMI) of 50.0 to 59.9 in adult,unspecified obesity type Tobacco user Tobacco use disorder Other headache syndrome Malignant neoplasm of cervix uteri, unspecified Other specified disorders of adrenal gland Major depressive disorder, single episode, mild (HCC) ([facility]) Major depressive disorder, single episode, [...] polyneuropathy associated with type 2 diabetes mellitus ([facility]) Pulmonary emphysema, unspecified emphysema type ([facility]) Critical limb ischemia of right lower extremity ([facility]) PAD (peripheral artery disease) ([facility]) Unspecified peripheral vascular disease Gastroesophageal reflux disease, unspecified whether esophagitis present Bilateral lower extremity edema Venous ulcer of right leg ([facility]) Type 2 diabetes mellitus with complication, with long-term current use of insulin ([facility]) Tobacco user Tobacco use disorder Encounter for smoking cessation counseling Kidney stone Calculus of kidney Adrenal mass 1 cm to 4 cm in diameter ([facility]) Radiculopathy, lumbar region Thoracic or lumbosacral neuritis or radiculitis, unspecified Non-seasonal allergic rhinitis, unspecified trigger Type 2 diabetes mellitus with unspecified complications Anxiety and depression ([facility])- Primary Morbid (severe) obesity due to excess calories ([facility]) Body mass index (BMI) 50.0-59.9, adult ([facility]) Malignant neoplasm of cervix uteri, unspecified Diabetic polyneuropathy associated with type 2 diabetes mellitus ([facility] Chronic diastolic heart failure ([facility] Chronic diastolic heart failure Primary hypertension ([facility]) Unspecified essential hypertension 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 Gastroesophageal reflux disease, unspecified whether esophagitis present Bilateral lower extremity edema Type 2 diabetes mellitus with complication, with long-term current use of insulin ([facility]) Tobacco user Tobacco use disorder Mixed hyperlipidemia ([facility]) Mixed hyperlipidemia Gout, unspecified cause, unspecified chronicity, unspecified site Vitamin deficiency Unspecified vitamin deficiency Gastro-esophageal reflux disease without esophagitis Edema, unspecified Edema Hyperlipidemia, unspecified ([facility]) Encounter for smoking cessation counseling Venous ulcer of right leg ([facility]) Antibiotic-induced yeast infection Primary hypertension ([facility])- Primary Unspecified essential hypertension Diabetic polyneuropathy associated with type 2 diabetes mellitus ([facility] Chronic diastolic heart failure ([facility]) Chronic diastolic heart failure Bilateral lower extremity edema Morbid (severe) obesity due to excess calories ([facility]) Type 2 diabetes mellitus with complication, with long-term current use of insulin ([facility]) Anxiety and depression ([facility]) Cigarette nicotine dependence without complication Encounter for screening mammogram for malignant neoplasm of breast Insomnia Insomnia, unspecified Non-seasonal allergic rhinitis, unspecified trigger Type 2 diabetes mellitus with unspecified complications Vitamin D deficiency, unspecified Gastro-esophageal reflux disease without esophagitis PAD (peripheral artery disease) ([facility]) Unspecified peripheral vascular disease Gastroesophageal reflux disease, unspecified whether esophagitis present Venous ulcer of right leg ([facility]) Cellulitis of left lower extremity- Primary COPD exacerbation ([facility] Obstructive chronic bronchitis with exacerbation Primary hypertension ([facility] Unspecified essential hypertension Pulmonary hypertension ([facility] [facility] Other chronic pulmonary heart diseases Morbid (severe) obesity due to excess calories ([facility] Type 2 diabetes mellitus with complication, with long-term current use of insulin ([facility] Anxiety and depression ([facility]) Fever, unspecified fever cause documented in this encounter [facility] HealthcareEvaluation note* Diagnosis Obstructive sleep apnea- [...] 50.0 to 59.9 in adult,unspecified obesity type ([facility]) Obstructive sleep apnea Obstructive sleep [...] 50.0 to 59.9 in adult,unspecified obesity type ([facility]) Encounter for subsequent annual wellness visit (AWV) in Medicare patient- Primary Type 2 diabetes mellitus with unspecified complications ([facility]) Pulmonary emphysema, unspecified emphysema type ([facility]) Moderate persistent asthma without complication (HCC) Primary hypertension Unspecified essential hypertension Type 2 diabetes mellitus with complication, with long-term current use of insulin ([facility]) Class 3 severe obesity with serious comorbidity and body mass index (BMI) of 50.0 to 59.9 in adult,unspecified obesity type ([facility]) Tobacco user Tobacco use disorder Other headache syndrome Malignant neoplasm of cervix uteri, unspecified (HCC) Other specified disorders of adrenal gland ([facility] Chronic obstructive pulmonary disease, unspecified (HCC) Pulmonary emphysema, unspecified emphysema type ([facility]) Bilateral lower extremity edema Tobacco user Tobacco use disorder Hyperpigmentation of skin Other dyschromia Primary hypertension- Primary Unspecified essential hypertension Diabetic polyneuropathy associated with type 2 diabetes mellitus ([facility]) Pulmonary emphysema, unspecified emphysema type (HCC) Critical limb ischemia of right lower extremity ([facility]) PAD (peripheral artery disease) Unspecified [...] (severe) obesity due to excess calories ([facility]) Body mass index (BMI) 50.0-59.9, adult ([facility]) Malignant neoplasm of cervix uteri, unspecified (HCC) [...] (severe) obesity due to excess calories ([facility]) Type 2 diabetes mellitus with [...] (severe) obesity due to excess calories ([facility] Type 2 diabetes mellitus with [...] (severe) obesity due to excess calories ([facility]) Type 2 diabetes mellitus with [...] 50.0 to 59.9 in adult,unspecified obesity type ([facility] Obstructive sleep apnea Obstructive sleep [...] 50.0 to 59.9 in adult,unspecified obesity type ([facility]) Encounter for subsequent annual wellness visit (AWV) in Medicare patient- Primary Type 2 diabetes mellitus with unspecified complications ([facility]) Pulmonary emphysema, unspecified emphysema type ([facility]) Moderate persistent asthma without complication (HCC) Primary hypertension Unspecified essential hypertension Type 2 diabetes mellitus with complication, with long-term current use of insulin ([facility]) Class 3 severe obesity with serious comorbidity and body mass index (BMI) of 50.0 to 59.9 in adult,unspecified obesity type ([facility]) Tobacco user Tobacco use disorder Other headache syndrome Malignant neoplasm of cervix uteri, unspecified (HCC) Other specified disorders of adrenal gland ([facility] [...] Critical limb ischemia of right lower extremity ([facility] PAD (peripheral artery disease) Unspecified [...] (severe) obesity due to excess calories ([facility] Body mass index (BMI) 50.0-59.9, adult ([facility] Malignant neoplasm of cervix uteri, unspecified (HCC) [...] (severe) obesity due to excess calories ([facility] Type 2 diabetes mellitus with [...] (severe) obesity due to excess calories ([facility] Type 2 diabetes mellitus with [...] Morbid (severe) obesity due to excess calories ([facility]) Encounter for dietary [...] index (BMI) of50.0 to 59.9 in adult ([facility]) documented [facility] encounter [facility] [...] 50.0 to 59.9 in adult,unspecified obesity type ([facility]) Obstructive sleep apnea [...] 50.0 to 59.9 in adult,unspecified obesity type ([facility]) Encounter for subsequent [...] 50.0 to 59.9 in adult,unspecified obesity type ([facility]) Tobacco user Tobacco use disorder Other headache syndrome Malignant neoplasm of cervix uteri, unspecified (HCC) Other specified disorders of adrenal gland ([facility] [...] unspecified (HCC) Pulmonary emphysema, unspecified emphysema type ([facility]) Bilateral lower extremity edema Tobacco user Tobacco use disorder Hyperpigmentation of skin Other dyschromia Primary hypertension- Primary Unspecified essential hypertension Diabetic polyneuropathy associated with type 2 diabetes mellitus (HCC) Pulmonary emphysema, unspecified emphysema type (HCC) Critical limb ischemia of right lower extremity ([facility] PAD (peripheral artery disease) Unspecified [...] (severe) obesity due to excess calories ([facility]) Body mass index (BMI) 50.0-59.9, adult ([facility]) Malignant neoplasm of cervix uteri, unspecified ([facility] [...] (severe) obesity due to excess calories ([facility] Type 2 diabetes mellitus with [...] Morbid (severe) obesity due to excess calories ([facility]) Type 2 diabetes [...] (severe) obesity due to excess calories ([facility] Tobacco user Tobacco use disorder Encounter for smoking cessation counseling documented in this encounter [facility] HealthcareEvaluation noteNo assessment information availableFirOhioHealth Southeastern Medical Center Work Phone: History general Narrative - Reported* Type Description Date Medical History diabetes mallitus Medical HistoryCOPDMedical HistoryADRENAL MASS 1 CM TO 4 CM IN DIAMETERMedical HistoryARTHRITISMedical HistoryASTHMAMedical HistoryHEADACHEMedical History HYPERTENSIONMedical HistoryKIDNEY STONESMedical HistoryLEFT FLANK PAINMedical HistoryMIXED INCONTINENCEMedical HistoryPROTEINURIAMedical HistorySMOKERSurgical [id number] Historytoe surgerySurgical HistoryLAPAROSCOPIC CHOLECYSTECTOMYHospitalization [id number] HistorySEE [place] [facility] Other Hospital course Narrative No data available for this section [facility] progress note No data available for this section [facility] reason for referral (narrative) , Referral to Dr. Cortés Referred by: REGLA PHIPPS, Elbert Joya [facility] reason for referral (narrative)No reason for referral information availableFirCoshocton Regional [facility] Work Phone: Advance Directives No Advanced Directives Records FoundDocuments on File TypeDate RecordedPatient RepresentativeExplanationAdvance Directives and Living WillPower of Transition Teacher Advance Directive Response Recorded Date/ Time Advance [...] section and content) DATE CREATED AUTHOR 10/30/2019 [facility] DATE CREATED AUTHOR AUTHOR'S ORGANIZ ATION 09/15/2020 [facility] DATE CREATED AUTHOR AUTHOR'S ORGANIZ ATION 12/19/2022 [facility] DATE CREATED AUTHOR AUTHOR'S ORGANIZ ATION 01/30/2025 [facility] DATE CREATED AUTHOR AUTHOR'S ORGANIZ ATION 04/12/2025 [facility] DATE CREATED AUTHOR AUTHOR'S ORGANIZ ATION 04/29/2025 [facility] DATE CREATED AUTHOR AUTHOR'S ORGANIZ ATION 05/08/2025 [facility] Care Team (unrecognized sect ion and content) Team MemberRelationshipSpecialtyStart DateEnd Date Ty Amin MD PCP - GeneralFamily Medicine01/05/23Team MemberRelationshipSpecialtyStart DateEnd Date Ty Amin MD [facility]CP [facility]ally [facility]01/05/23Team MemberRelationshipSpecialtyStart DateEnd Date Ty Amin MD [address] [place] [address] PCP - GeneralFamily Medicine09/20/23 Mckayla Blas NP [address] [place] [address] PCP - [facility]/ Mckayla Blas NP [address] [place] [address] Nurse PractitionerBo[facility] Hospitally Medicine09/20/23Team MemberRelationshipSpecialtyStart DateEnd Date Ty Amin MD [address] [place] [address] PCP - Generalmi Medicine09/20/23 Mckayla Blas NP [address] [place] [address] PCP - [facility]/ Mckayla Blas NP [address] [place] [address] [facility]09/20/23Team MemberRelationshipSpecialtyStart DateEnd Date Ty Amin MD [address] [place] [address] PCP - [facility]09/20/23 Mckayla Blas NP [address] [place] [address] [place] [address] Mckayla Blas NP [address] [place] [address] Nurse Pract[facility]erP[facility]09/20/23Team MemberRelationshipSpecialtyStart DateEnd Date Ty Amin MD [address] [place] [address] PCP - [facility]09/20/23 Mckayla Blas NP [address] [place] [address] [place] [address] Mckayla Blas NP [address] [place] [address] Nurse Pract[facility]erP[facility]09/20/23Team MemberRelationshipSpecialtyStart DateEnd Date Ty Amin MD [address] [place] [address] PCP - [facility]09/20/23 Mckayla Blas NP [address] [place] [address] [place] [address]/ Mckayla Blas NP [address] [place] [address] Nurse Pract[facility]09/20/23Team MemberRelationshipSpecialtyStart DateEnd Date Ty Amin MD [address] [place] [address] PCP - [facility]09/20/23 Mckayla Blas NP [address] [place] [address] [place] [address]/ Mckayla Blas NP [address] [place] [address] Nurse Pract[facility]erP[facility]09/20/23Team MemberRelationshipSpecialtyStart DateEnd Date Ty Amin MD [address] [place] [address] PCP - [facility]09/20/23 Mckayla Blas NP [address] [place] [address] [facility]/ Mckayla Blas NP [address] [place] [address] Nurse PractitionerP[facility]09/20/23Team MemberRelationshipSpecialtyStart DateEnd Date Ty Amin MD [address] [place] [address] PCP - [facility]09/20/23 Mckayla Blas NP [address] [place] [address] [place] [address]/ Mckayla Blas NP [address] [place] [address] Nurse PractitionerP[facility]09/20/23Team MemberRelationshipSpecialtyStart DateEnd Date Ty Amin MD [address] [place] [address] PCP - [facility]09/20/23 Mckayla Blas NP [address] [place] [address] PCP [facility]/ Mckayla Blas NP [address] [place] [address] Nurse Pract[facility]Bo[facility] Hospitally [facility]09/20/23Team MemberRelationshipSpecialtyStart DateEnd Date Ty Amin MD [address] [place] [address] [facility]/23 Mckayla Blas NP [address] [place] [address] PCP - [facility] Mckayla Blas NP [address] [place] [address] Nurse PractitionerP[facility]09/20/23Te MemberRelationshipSpecialtyStart DateEnd Date Ty Amin MD [address] [place] [address] [facility]09/20/23 Mckayla Blas NP [address] [place] [address] PCP - [facility]/ Mckayla Blas NP [address] [place] [address] [facility] Medicine09/20/23Team MemberRelationshipSpecialtyStart DateEnd Date Ty Amin MD [address] [place] [address] PCP - [facility]09/20/23 Mckayla Blas NP [address] [place] [address] [place] [address] Mckayla Blas NP [address] [place] [address] Nurse [facility]09/20/23Team MemberRelationshipSpecialtyStart DateEnd Date Ty Amin MD [address] [place] [address] PCP - [facility]09/20/23 Mckayla Blas NP [address] [place] [address] [place] [address] Mckayla Blas NP [address] [place] [address] Nurse Pract[facility]09/20/23Team MemberRelationshipSpecialtyStart DateEnd Date Ty Amin MD [address] [place] [address] PCP - [facility]09/20/23 Mckayla Blas NP [address] [place] [address] [place] [address] Mckayla Blas NP [address] [place] [address] [facility]09/20/23Team MemberRelationshipSpecialtyStart DateEnd Date Ty Amin MD [address] [place] [address] PCP - [facility]09/20/23 Mckayla Blas NP [address] [place] [address] PCP [facility]/ Mckayla Blas NP [address] [place] [address] Nurse Pract[facility]09/20/23Team MemberRelationshipSpecialtyStart DateEnd Date Ty Amin MD [address] [place] [address] PCP - [facility]09/20/23 Mckayla Blas NP [address] [place] [address] PCP [facility]/ Mckayla Blas NP [address] [place] [address] Nurse Pract[facility]09/20/23Team MemberRelationshipSpecialtyStart DateEnd Date Ty Amin MD [address] [place] [address] PCP - [facility]09/20/23 Mckayla Blas NP [address] [place] [address] [place] [address]/ Mckayla Blas NP [address] [place] [address] Nurse Practitioner[facility]09/20/23Team MemberRelationshipSpecialtyStart DateEnd Date Ty Amin MD [address] [place] [address] PCP - [facility]09/20/23 Mckayla Blas NP [address] [place] [address] [place] [address]/ Mckayla Blas NP [address] [place] [address] Nurse PractitionerP[facility]09/20/23Team MemberRelationshipSpecialtyStart DateEnd Date Ty Amin MD [address] [place] [address] PCP - [facility]09/20/23 cMkayla Blas NP [address] [place] [address] [facility]/ Mckayla Blas NP [address] [place] [address] [facility] Medicine09/20/23Team MemberRelationshipSpecialtyStart DateEnd Date Ty Amin MD [address] [place] [address] [facility]09/20/23 Mckayla Blas NP [address] [place] [address] [place] [address]/ Mckayla Blas NP [address] [place] [address] Nurse Pract[facility]09/20/23Team MemberRelationshipSpecialtyStart DateEnd Date Ty Amin MD [address] [place] [address] PCP - [facility] Medicine09/20/23 Mckayla Blas NP [address] [place] [address] Nurse PractitionerP[facility]09/20/23Team MemberRelationshipSpecialtyStart DateEnd Date Ty Amin MD [address] [place] [address] PCP - GeneralFamily Medicine09/20/23 Mckayla Blas NP [address] [place] [address] [facility] Medicine09/20/23Team MemberRelationshipSpecialtyStart DateEnd Date Ty Amin MD [address] [place] [address] [facility]/20/23 Mckayla Blas NP [address] [place] [address] [facility] Medicine09/20/23Team MemberRelationshipSpecialtyStart DateEnd Date Ty Amin MD [address] [place] [address] [facility]09/20/23 Mckayla Blas NP [address] [place] [address] [facility] Medicine09/20/23Team MemberRelationshipSpecialtyStart DateEnd Date Ty Amin MD [address] [place] [address] PCP - [facility]09/20/23 Mckayla Blas NP [address] [place] [address] Nurse [facility]09/20/23 Team Status: Active Member Role Status Dates Mckayla Blas , WEB PRODUCER-C Primary Care Provider Active Team Status: Active Member Role Status Dates Mckayla Krystal Blas , WEB [employer]ODUCER-C Primary Care Provider Active Start: March 25, 2025 Price Arora , DOAttending ProviderActiveStart: March 25, 2025 Team Status: Active Member Role Status Dates Mckayla Krystal Blas , WEB PRODUCER-C Primary Care Provider Active Start: March 26, 2025 SASHA WellsMAttending ProviderActiveStart: March 26, 2025 Team Status: Inactive Member Role Status Dates Mckayla Blas , WEB PRODUCER-C Primary Care Provider Active Start: April 06, 2025 End: April 06, 2025Mckayla Blas , WEB PRODUCER-CAttending ProviderActiveStart: April 06, 2025 End: April 06, 2025 Team Status: Active Member Role/Relationship Status Dates Mckayla Krystal Blas , WEB PRODUCER-C Primary Care Provider Active Team Status: Active Member Role/Relationship Status Dates Mckayla Krystal Blas , WEB PRODUCER-C Primary Care Provider Active Start: March 25, 2025 Price Arora , DOAttending ProviderActiveStart: March 25, 2025 Team Status: Active Member Role/Relationship Status Dates Mckayla Krystal Blas , WEB PRODUCER-C Primary Care Provider Active Start: March 26, 2025 SASHA WellsMAttending ProviderActiveStart: March 26, 2025 Team Status: Inactive Member Role/Relationship Status Dates Mckayla Krystal Blas , WEB PRODUCER-C Primary Care Provider Active Start: April 06, 2025 End: April 06, 2025Mckayla Blas , WEB PRODUCER-CAttending ProviderActiveStart: April 06, 2025 End: April 06, 2025 Team Status: Inactive Member Role/Relationship Status Dates Mckayla Krystal Blas , WEB PRODUCER-C Primary Care Provider Active Start: April 29, 2025 End: April 29, 2025Mckayla Blas , WEB PRODUCER-CAttending ProviderActiveStart: April 29, 2025 End: April 29, 2025Team MemberRelationshipSpecialtyStart DateEnd Date Ty Amin MD PCP - [facility]09/20/23 Mckayla Blas NP [address] [place] [address] PCP - [facility] Mckayla Blas NP Nurse PractitionerP[facility]09/20/23Team MemberRelationshipSpecialtyStart DateEnd Date Ty Amin MD PCP - [facility] Ty Amin MD PCP - [facility]09/20/23 Mckayla Blas NP [address] [place] [address] [place] [address] Mckayla Blas NP Nurse PractitionerP[facility]09/20/23Team MemberRelationshipSpecialtyStart DateEnd Date Ty Amin MD PCP - [facility]09/20/23 Mckayla Blas NP [address] [place] [address] Mckayla Blas NP Nurse PractitionerFamily [facility]09/[facility] REASON FOR VISIT (unrecogniz ed section and [...] BE BASED ON THE PRIMARY CLINICAL RECORDS. [employer] provides no warranty or guarantee of the accuracy or completeness of information in this document.
== END 2025-05-13 11:57 | disposition home or self-care (01) ==
LOC: WC 11:56
PROVIDERS: PCP Nurse Practitioner; Visit Provider Physician Assistant
DX: M25.551 Pain in right hip (principal); M16.9 Osteoarthritis of hip, unspecified; M48.062 Spinal stenosis, lumbar region with neurogenic claudication; M51.369 Other intervertebral disc degeneration, lumbar region without mention of lumbar back pain or lower extremity pain; G89.4 Chronic pain syndrome; Z79.891 Long term (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 opiate analgesic; I87.311 Chronic venous hypertension (idiopathic) with ulcer of right lower extremity; L97.812 Non-pressure chronic ulcer of other part of right lower leg with fat layer exposed
CPT/HCPCS: 29581; G0463

== ENCOUNTER 2025-05-15 10:01 | Outpatient (OUT) | payer MEDICARE, SELFPAY ==
--- OUTSIDE RECORDS SUMMARY | 2024-12-02 04:30 | XMS_ITS ---
Author Organization The [facility] in [place] Address [address] [place] [address] Care Team Providers Care Retail Experience Specialist Name Role Phone Mckayla Blas CNP Primary Care Provider Unavail Armando Carroll Unavailable [phone] REASON FOR VISIT 1YEAR-COPD Encounters Encounter Location Date Provider Diagnosis Pulmonary Medicine [place] [address] [place] [address] 12/02/2024 Armando Yañez Plan Of Treatment No Information Progress Notes * Mitzi MACIAS LDOB:[birth year] (54 yo F)Acc No.[id number]:12/02/2024 UNLOCKED PROGRESS NOTE Follow Up Patient: Mitzi COX :?Armando Yañez, DODOB:1970???Age:54 Y ???Sex:FemaleDate:12/02/2024Phone:[phone]:[address] [place], [place] [address]Pcp:Mckayla Blas CNP Subjective: * Chief Complaints: * 1 . 1YEAR-COPD. * Medical History: Objective: * Vitals: Assessment: Plan: * Treatment: * * Electronic signature of Armando Yañez DO on 05/15/2025 at 10:04 AM ESTSign off status: PendingVisit Status:?N/S N/C (No Show/No Charge) * Provider: Tray Yañez DO Date: 0 12/02/2024 Generated for Printing/Faxing/eTransmitting on:?05/15/2025 10:04 AM EST
--- OUTSIDE RECORDS SUMMARY | 2025-05-15 10:03 | XMS_ITS | Encounter Summary ---
Author Organization [facility] Address [address] [place] [address] Care Team Providers Care Degreasing Solution Mixer Name Role Phone Ty Amin MD Primary Care Provider [phone] Mckayla Blas NP Unavailable [phone] Mckayla Blas NP Unavailable [phone] Encounter Details DateTypeDepartmentCare Team (Latest Contact Info)Raykljsqaxr22/17/2024Clinisync Result Encounter [facility] External Department Unsolicited Provider, [...] relatives?Once a week08/26/2024How often do you attend zoroastrianism or voodoo services?More than 4 times per year08/26/2024Do you belong to any clubs or organizations such as zoroastrianism groups, unions, fraternal or athletic groups, or school groups?No08/26/2024How often do you attend meetings of the clubs or organizations you belong to?Never08/26/2024re you , , , , never , or living with a partner?Zebvuck0308/26/2024UDIT-C AnswerDate RecordedQ1: How often do you have [...] heating?Not hard at all08/26/2024PHQ-2AnswerDate RecordedPatient Health Questionnaire-2 Vlwmk482Finshriners hospitals for [facility] [place] of Occupational Health - Occupational Stress QuestionnaireAnswerDate RecordedDo you feel stress - tense, restless, nervous, or anxious, or unable to sleep at night because yourmind is troubled all the time - these days?Only a dkthlg0308/26/2024 Exercise Vital SignAnswerDate RecordedOn average, how many [...] RecordedSex Assigned at BirthNot on fileLegal Sex Girlil0509/20/2022 6:50 PM EDTGender IdentityNot on fileSexual OrientationNot on filedocumented as of this encounter Functional Status * AUDIT-C ScoreAnswerDate of RsibkcvhfiXcovgv677/18/2025 6:13 PM Riley, Generic * Q1: How [...] or more drinks on one occasion?AnswerDate of KxaajsjrbwFpfzznOnckh92/18/2025 6:13 PM Riley, Generic * Over the past 2 weeks, how often have you been bothered by any of the following problems?QuestionAnswerDate of AssessmentAuthorLittle interest or pleasure in doing thingsNot at all01/26/2025 6:14 PM Marilyn Gibson MA Feeling down, depressed, or hopelessNot at all01/26/2025 6:14 PM Marilyn Gibson MAPatient Health Questionnaire-2 Gvytn565 6:14 PM EDT Marilyn Forman MA * QuestionAnswerDate of AssessmentAuthorPatient Health Questionnaire-9 Score1 01/26/2025 4:13 PM EDTMchio, Generic * Trouble falling or staying asleep, or sleeping too muchAnswerDate of AssessmentAuthorNot at all01/26/2025 4:13 PM EDTMjaayart, Generic * Feeling tired or having little energyAnswerDate of AssessmentAuthorNot at all 01/26/2025 4:13 PM EDTMchio, Generic * Poor appetite or overeatingAnswerDate of AssessmentAuthorNot at all01/26/2025 4:13 PM EDTMychcyndy, Generic * Feeling bad about yourself - or that you are a failure or have let yourself or your family downAnswerDate of AssessmentAuthorNot at all01/26/2025 4:13 PM EDTMchio, Generic * Trouble concentrating on things, such as reading the newspaper or watching televisionAnswerDate of AssessmentAuthorNot at all01/26/2025 4:13 PM EDT Miguel, Generic * Moving or speaking so slowly that other people could have noticed? Or the opposite - being so fidgety or restless that you have been moving around a lot more than usual.AnswerDate of AssessmentAuthorNot at all01/26/2025 4:13 PM EDT Charismat, Generic * Thoughts that you would be better off or hurting yourself in some way AnswerDate of AssessmentAuthorNot at all01/26/2025 4:13 PM EDJavon, Generic documented as of this encounter Plan of Treatment DateTypeDepartmentCare Team (Latest Contact Info)Iplqxlflrcr74/20/2025 10:30 AM ESTOffice Visit [facility] [address] [place] [address] Rain Souza MD [address] [place] [address] documented as of this encounter Procedures Procedure NamePriorityDate/TimeAssociated DiagnosisCommentsSEGMENTAL BLOOD CPEBXJMR74/17/2024 11:20 AM EDT documented in this encounter Results * SEGMENTAL BLOOD PRESSURE (04/24/2024 11:20 AM EDT)Anatomical RegionLaterality ModalityRadiographic ImagingSpecimen (Source)Anatomical Location / Laterality Collection Method / VolumeCollection TimeReceived Time04/24/2024 11:20 AM EDT Narrative 04/24/2024 11:[address] [facility] ?[address] ? [place] [address] ?Vein Report ? Signed ? Patient: DIONISIO,MITZI L ?MR#: [id number] ?? : 1970 ?Acct:[id number] ?? Age/Sex: 53 / F ?ADM Date: 04/24/24 ?? Loc: VC ? Attending Dr: Rafael Gongora ? Ordering Physician: Rafael Gongora ?? Date of Service: 04/24/24 ?? Procedure(s): VC SEGMENTAL PRESSURES ?? Accession Number(s): [id number] ? cc: Mckayla Blas NP; Rafael Gongora ? [facility] ? [address] ? [place] [address] ? Patient Name: ?? MITZI MACIAS ? MRN: [id number] ? date: 1970 ?Sex: F ?? Assigned Patient Location: VC ?? Current Patient Location: VC ?? Accession/Order Number: [id number] ?? Exam Date: 04/24/2024 ??10:25 ?Report Date: [...] 124, 106 ?? DPA: 108, 105 ?? WARRANTY ADMINISTRATOR: 100, 91 ?? 1st Toe: 124, 142 [...] ?04/24/243 ? DD/ 1120 ? TD/TT: ? Coach Professional Athletes: Procedure Note Radiology, Radiologist, MD - 04/24/[address] [address] Vein Report Signed Patient: MITZI MACIAS LMR#: [id number] : 1970Acct:[id number] Age/Sex: 53 / FADM Date: 04/24/24 Loc: Attending Dr: Rafael Gongora Ordering Physician: Rafael Gongora Date of Service: 04/24/24 Procedure(s): VC SEGMENTAL PRESSURES Accession Number(s): [id number] cc: Mckayla Blas COKE INSPECTOR; Rafael Gongora The [address] [address] Patient Name: MITZI MACIAS MRN: [id number] date: 1970 Sex: F Assigned Patient Location: Current Patient Location: VC Accession/Order Number: [id number] Exam Date: 04/24/2024 10:25 Report Date: 04/24/2024 11:20 At the request of: RAFAEL GONGORA Procedure: VC SEGMENTAL PRESSURES EXAM: VC SEGMENTAL PRESSURES HISTORY: R09.89 COMPARISON: None. FINDINGS: Segmental pressures presented as follows (right, left) in mmHg. Brachial: 169, 166 Upper thigh: Not obtained Lower thigh: 129, 119 Calf: 124, 106 DPA: 108, 105 WARRANTY ADMINISTRATOR: 100, 91 1st Toe: 124, 142 ISABELLE: [...] M.D. Signed By:04/24/24 1123 DD/ 1120 TD/TT: Coach Professional Athletes: Authorizing ProviderResult TypeResult StatusGeneric External Data ProviderIMG XR PROCEDURESFinal Result documented in this encounter Visit Diagnoses Not on filedocumented in this encounter Additional Health Concerns AssessmentNoted TimePHQ-9 Depression Total Score: 307 10:08 AM EDT documented as of this encounter Care Teams Team MemberRelationshipSpecialtyStart DateEnd Date Ty Amin MD [address] [place] [address] PCP - [facility]09/20/23 Mckayla Blas NP [address] [place] [address] PCP - [facility]/ Mckayla Blas NP [address] [place] [address] Nurse PractitionerFamily Medicine09/20/23documented as of this encounter
--- OUTSIDE RECORDS SUMMARY | 2025-05-15 10:03 | XMS_ITS | Clinical Summary ---
Author Organization [facility] Address [id number] [address] [place] [address] Care Team Providers Care Public Service Administrator Name Role Phone Wan Mckayla Rice APRN-TANK PUMPER Primary Care Provider Allergies No known active [...] mg/0.5 mL pen injector inject one pen bgsvic9904/12/2020Active DULoxetine (CYMBALTA) 60 mg capsule Take 1 [...] get venous reflux ultrasound. Other chronic pain1ANA gcknfaqo43/11/2021Preop cardiovascular exam 05/28/20200661Sgbedsj77/20/2020 Assessment & Plan (06/19/2024 2:16 PM EST): Counseled on smoking cessation for at least 3 minutes. She is willing to quit. Morbid luspjdo7005/28/2020BMI 50.0-59.9, adult05/21/2020 Family History Medical HistoryRelationNameCommentsCancerPaternal GrandfatherCancerPaternal GrandmotherHeart diseasePaternal GrandmotherStrokePaternal GrandmotherRelation NameStatusCommentsFatherDeceasedMotherDeceasedPaternal GrandfatherPaternal Grandmother Social History Tobacco UseTypesPacks/DayYears UsedDateSmoking Tobacco: Every DayCigarettes Smokeless Tobacco: NeverAlcohol UseStandard Drinks/WeekCommentsYes0 (1 standard drink = 0.6 oz pure alcohol)RAREChildcareAnswerDate RecordedChildcareUnknown 12/12/2018EmploymentAnswerDate PotkochoJzkfuzpwflPpogvzj95/06/2019Purpose - Life AnswerDate RecordedPurpose and direction in qkuiGygoyiy02/06/2021 CommentsUnknownSex and Gender InformationValueDate RecordedSex Assigned at Not on fileLegal ZqzKkdjhh15/06/2015 11:50 AM EDTGender IdentityNot on file Sexual OrientationNot on file Last Filed Vital Signs Vital SignReadingTime TakenCommentsBlood Kindslzm912/7006/19/2024 11:26 AM EST Ubbzx274406/19/2024 11:26 AM CLHHyorxrfuejt24.7 ??C (98 ??F)06/19/2024 11:26 AM ESTRespiratory Ziyl312908/20/2023 11:26 AM ESTOxygen Jxwgtulggs08%06/11/2020 9:27 AM ESTInhaled Oxygen Concentration--Tosfxc758.6 kg (374 lb)06/19/2024 11:26 AM ERETketau940 cm (5' 6.93 )06/19/2024 11:26 AM ESTBody Mass Index58.7108/20/2023 11:26 AM EST Plan of Treatment Health MaintenanceDue DateLast DoneCommentsStatin Use: Dvswyueogrixdv91/17/1971 Depression Jkcyxtich98/17/1983Tobacco Zbmsokqfk25/17/1983Adult BMI Follow Up Plan1988DTaP,Tdap and Td Vaccines (1 - Tdap)1989Pap Smear1991 Zoster (Shingles) Vaccine (1 of 2)1COVID-19 Vaccine (4 - 2024-26 season)5007/19/2021, 10/28/2020, 10/08/2020Influenza Oiyqqpu7703/09/2025 05/18/2023, 04/16/2017, 05/10/2016, Additional history existsAdult BMI Screening Medical Devices Not on file Insurance Care Teams Team MemberRelationshipSpecialtyStart DateEnd Date Mckayla Blas, FOOD SERVICE WORKER [facility]OSP[facility]-TANK PUMPER [address] [place] [address] PCP - GeneralNurse Practitioner09/25/18
--- OUTSIDE RECORDS SUMMARY | 2025-05-15 10:03 | XMS_ITS | Encounter Summary ---
Author Organization [facility] Address [address] [place] [address] Care Team Providers Care Supervisory Clerk Name Role Phone Ty Amin MD Primary Care Provider [phone] Mckayla Blas NP Unavailable [phone] Mckayla Blas NP Unavailable [phone] Encounter Details DateTypeDepartmentCare Team (Latest Contact Info)Aocrtbywrkt70/04/2024Clinisync Result Encounter [facility] External Department Unsolicited Provider, [...] relatives?Once a week08/26/2024How often do you attend scientologist or evangelical services?More than 4 times per year08/26/2024Do you belong to any clubs or organizations such as scientologist groups, unions, fraternal or athletic groups, or school groups?No08/26/2024How often do you attend meetings of the clubs or organizations you belong to?Never08/26/2024re you , , , , never , or living with a partner?Rlwjqrs2508/26/2024UDIT-C AnswerDate RecordedQ1: How often do you have [...] heating?Not hard at all08/26/2024PHQ-2AnswerDate RecordedPatient Health Questionnaire-2 Uizyi947Finlake[facility] [place] of Occupational Health - Occupational Stress QuestionnaireAnswerDate RecordedDo you feel stress - tense, restless, nervous, or anxious, or unable to sleep at night because yourmind is troubled all the time - these days?Only a ecgfmt5708/26/2024 Exercise Vital SignAnswerDate RecordedOn average, how many [...] homeless or living in a long-term (including now)?No08/26/2024CommentsUnknownSex and Gender InformationValueDate RecordedSex Assigned at BirthNot on fileLegal Sex Rejxjm4309/20/2022 6:50 PM EDTGender IdentityNot on fileSexual OrientationNot on filedocumented as of this encounter Functional Status * AUDIT-C ScoreAnswerDate of FtwwinrntvElrdir222/18/2025 6:13 PM Riley, Generic * Q1: How [...] or more drinks on one occasion?AnswerDate of NapokxcmsyUvzpuwUhwyj68/18/2025 6:13 PM Riley, Generic * Over the past 2 weeks, how often have you been bothered by any of the following problems?QuestionAnswerDate of AssessmentAuthorLittle interest or pleasure in doing thingsNot at all01/26/2025 6:14 PM Marilyn Gibson MA Feeling down, depressed, or hopelessNot at all01/26/2025 6:14 PM Marilyn Gibson MAPatient Health Questionnaire-2 Luawb971 6:14 PM EDT Marilyn Forman MA * [...] Plan of Treatment DateTypeDepartmentCare Team (Latest Contact Info)Ncgtkdvwtra95/20/2025 10:30 AM ESTOffice Visit [facility] [address] [place] [address] Rain Souza MD [address] [place] [address] documented as of this encounter Procedures Procedure NamePriorityDate/TimeAssociated DiagnosisCommentsMR LUMBAR SPINE WO CON05/12/2024 2:41 PM EST documented in this encounter Results * MR LUMBAR SPINE WO CON (05/12/2024 2:41 PM EST)Anatomical RegionLaterality ModalityOtherSpecimen (Source)Anatomical Location / LateralityCollection Method / VolumeCollection TimeReceived Time05/12/2024 2:41 PM EST Narrative 05/12/2024 2:[address] [facility] ?[address] ? [place] [address] ? Magnetic Resonance Report ? Signed ? Patient: MACIAS,MITZI L ?MR#: [id number] ?? : 1970 ?Acct:[id number] ?? Age/Sex: 53 / F ?ADM Date: 05/12/24 ?? Loc: MRI ? Attending Dr: Celestina Chin MORTGAGE MANAGER ? Ordering Physician: Celestina Chin NP ?? Date of Service: 05/12/24 ?? Procedure(s): MR lumbar spine wo con ?? Accession Number(s): [id number] ? cc: Mckayla Blas NP; Celestina Chin NP ? [facility] ? [address] ? [place] [address] ? Patient Name: ?? MITZI MACIAS ? MRN: [id number] ? date: 1970 ?Sex: F ?? Assigned Patient Location: MRI ?? Current Patient Location: CT ?? Accession/Order Number: [id number] ?? Exam Date: 05/12/2024 ??09:21 ?Report Date: [...] 1443 ? DD/ 1441 ? TD/TT: ? Mix House Tender: Procedure Note Radiology, Radiologist, MD - 05/12/[address] [address] Magnetic Resonance Report Signed Patient: MITZI MACIAS LMR#: [id number] : 1970Acct:[id number] Age/Sex: 53 / FADM Date: 05/12/24 Loc: MRI Attending Dr: Celestina Chin NP Ordering Physician: Celestina Chin NP Date of Service: 05/12/24 Procedure(s): MR lumbar spine wo con Accession Number(s): [id number] cc: Mckayla Blas NP; Celestina Chin NP [address] [address] Patient Name: MITZI MACIAS MRN: [id number] date: 1970 Sex: F Assigned Patient Location: MRI Current Patient Location: CT Accession/Order Number: [id number] Exam Date: 05/12/2024 09:21 Report Date: 05/12/2024 [...] Gardner M.D. Signed By:05/12/241442 DD/ 40 TD/TT: Mix House Tender: Authorizing ProviderResult TypeResult StatusGeneric External Data Provider CLINISYNC IMAGINGFinal Result documented in this encounter Visit Diagnoses Not on filedocumented in this encounter Additional Health Concerns AssessmentNoted TimePQ-9 Depression Total Score: 307 10:08 AM EDT documented as of this encounter Care Teams Team MemberRelationshipSpecialtyStart DateEnd Date Ty Amin MD [address] [place] [phone] [facility]CP - [facility]09/20/23 Mckayla Blas NP [address] [place] [address] PCP - [facility]/1/ Mckayal Blas NP [address] [place] [address] Nurse PractitionerFacharlton memorial hospital Medicine09/20/23documented as of this encounter
--- OUTSIDE RECORDS SUMMARY | 2025-05-15 10:03 | XMS_ITS | Encounter Summary ---
Author Organization [facility] Address [address] [place] [address] Care Team Providers Care Mica Sizer Name Role Phone Ty Amin MD Primary Care Provider [phone] Mckayla Blas NP Unavailable [phone] Mckayla Blas NP Unavailable [phone] Encounter Details DateTypeDepartmentCare Team (Latest Contact Info)Goaurgzqwnw32/04/2024Clinisync Result Encounter [facility] External Department Unsolicited Provider, [...] week08/26/2024How often do you attend protestant or worship services?More than 4 times per year08/26/2024Do you belong to any clubs or organizations such as protestant groups, unions, fraternal or athletic groups, or school groups?No08/26/2024How often do you attend meetings of the clubs or organizations you belong to?Never08/26/2024re you , , , , never , or living with a partner?Wsootsx2508/26/2024UDIT-C AnswerDate RecordedQ1: How often do you have [...] heating?Not hard at all08/26/2024PHQ-2AnswerDate RecordedPatient Health Questionnaire-2 Ljncv399Fingar[facility] [place] of Occupational Health - Occupational Stress QuestionnaireAnswerDate RecordedDo you feel stress - tense, restless, nervous, or anxious, or unable to sleep at night because yourmind is troubled all the time - these days?Only a cuesdk7508/26/2024 Exercise Vital SignAnswerDate RecordedOn average, how many [...] RecordedSex Assigned at BirthNot on fileLegal Sex Bkzych7809/20/2022 6:50 PM EDTGender IdentityNot on fileSexual OrientationNot on filedocumented as of this encounter Functional Status * AUDIT-C ScoreAnswerDate of ZgcdginuxpGuzadi882/18/2025 6:13 PM Riley, Generic * Q1: How [...] or more drinks on one occasion?AnswerDate of FgnypkpsvdDcdlqaIhmtj86/18/2025 6:13 PM Riley, Generic * Over the past 2 weeks, how often have you been bothered by any of the following problems?QuestionAnswerDate of AssessmentAuthorLittle interest or pleasure in doing thingsNot at all01/26/2025 6:14 PM Marilyn Gibson MA Feeling down, depressed, or hopelessNot at all01/26/2025 6:14 PM Marilyn Gibson MAPatient Health Questionnaire-2 Hppkl797 6:14 PM EDT Marilyn Forman MA * [...] Plan of Treatment DateTypeDepartmentCare Team (Latest Contact Info)Hfnkpmxeexl20/20/2025 10:30 AM ESTOffice Visit [facility] [address] [place] [address] Rain Souza MD [address] [place] [address] documented as of this encounter Procedures Procedure NamePriorityDate/TimeAssociated DiagnosisCommentsCT ABDOMEN PELVIS W CON05/12/2024 2:16 PM EST documented in this encounter Results * CT ABDOMEN PELVIS W CON (05/12/2024 2:16 PM EST)Anatomical RegionLaterality ModalityOtherSpecimen (Source)Anatomical Location / LateralityCollection Method / VolumeCollection TimeReceived Time05/12/2024 2:16 PM EST Narrative 05/12/2024 2:19 PM EST [facility] ?[address] ? [place] [address] ? CT Scan Report ? Signed ? Patient: DIONISIO,MITZI L ?MR#: [id number] ?? : 1970 ?Acct:[id number] ?? Age/Sex: 53 / F ?ADM Date: 05/12/24 ?? Loc: CT ? Attending Dr: Gaviota MAYERS ? Ordering Physician: Gaviota Vega ?? Date of Service: 05/12/24 ?? Procedure(s): CT abdomen pelvis w con ?? Accession Number(s): [id number] ? cc: Mckayla Blas NP ? [facility] ? [address] ? [place] [address] ? Patient Name: ?? MITZI MACIAS ? MRN: [id number] ? date: 1970 ?Sex: F ?? Assigned Patient Location: CT ?? Current Patient Location: WC ?? Accession/Order Number: [id number] ?? Exam Date: 05/12/2024 ??11:15 ?Report Date: [...] 1419 ? DD/ 1416 ? TD/TT: ? Head Charrer: Procedure Note Radiology, Radiologist, MD - 05/12/[address] [address] [address] Scan Report Signed Patient: MITZI MACIAS LMR#: [id number] : 1970Acct:[id number] Age/Sex: 53 / FADM Date: 05/12/24 Loc: CT Attending Dr: Gaviota MAYERS Ordering Physician: Gaviota Vega Date of Service: 05/12/24 Procedure(s): CT abdomen pelvis w con Accession Number(s): [id number] cc: Mckayla Blas NP [place] [address] [place] [id number] Patient Name: MITZI MACIAS MRN: [facility]:[id number] date: 1970 Sex: F Assigned Patient Location: CT Current Patient Location: Accession/Order Number: [id number] Exam Date: 05/12/2024 11:15 Report Date: 05/12/2024 [...] M.D. Signed By:05/12/24 1419 DD/ 1416 TD/TT: Head Charrer: Authorizing ProviderResult TypeResult StatusGeneric External Data Provider CLINISYNC IMAGINGFinal Result documented in this encounter Visit Diagnoses Not on filedocumented in this encounter Additional Health Concerns AssessmentNoted TimePQ-9 Depression Total Score: 307 10:08 AM EDT documented as of this encounter Care Teams Team MemberRelationshipSpecialtyStart DateEnd Date Ty Amin MD [address] [place] [address] PCP - GeneralFamily Medicine09/20/23 Mckayla Blas NP [address] [place] [address] PCP - [facility]/ Mckayla Blas NP [address] [place] [address] Nurse PractitionerFamily Medicine09/20/23documented as of this encounter
--- OUTSIDE RECORDS SUMMARY | 2025-05-15 10:03 | XMS_ITS | Encounter Summary ---
Author Organization [facility] Address [address] [place] [address] Care Team Providers Care Musculoskeletal Physician Name Role Phone Ty Amin MD Primary Care Provider [phone] Ty Amin MD Primary Care Provider [phone] WORKER Unavailable [phone] WORKER Unavailable [phone] Encounter Details DateTypeDepartmentCare Team (Latest Contact Info)Erzmyndahwm43/23/2024Clinisync Result Encounter [facility] External Department Unsolicited Andra Alcala PA [address] [place], [place] [address] Social History Tobacco UseTypesPacks/DayYears UsedDateSmoking Tobacco: Every [...] relatives?Once a week08/26/2024How often do you attend moravian or caodaism services?More than 4 times per year08/26/2024Do you belong to any clubs or organizations such as moravian groups, unions, fraternal or athletic groups, or school groups?No08/26/2024How often do you attend meetings of the clubs or organizations you belong to?Never08/26/2024re you , , , , never , or living with a partner?Rtdygun4908/26/2024UDIT-C AnswerDate RecordedQ1: How often do you have [...] heating?Not hard at all08/26/2024PHQ-2AnswerDate RecordedPatient Health Questionnaire-2 Ejhpk510Finun[facility] of [facility] [place] of Occupational Health - Occupational Stress QuestionnaireAnswerDate RecordedDo you feel stress - tense, restless, nervous, or anxious, or unable to sleep at night because yourmind is troubled all the time - these days?Only a mzkqjw2508/26/2024 Exercise Vital SignAnswerDate RecordedOn average, how many [...] steady place to sleep or slept in formerly [facility] (including now)?No07/10/2023Housing Stability Vital SignAnswerDate RecordedIn [...] RecordedSex Assigned at BirthNot on fileLegal Sex Kouchy1709/20/2022 6:50 PM EDTGender IdentityNot on fileSexual OrientationNot on filedocumented as of this encounter Functional Status * AUDIT-C ScoreAnswerDate of IzkvjptaxlLlmdhn902/18/2025 6:13 PM ESTMychart, Generic * Q1: How [...] or more drinks on one occasion?AnswerDate of NtyzgqqtllAgshpiCjuwi49/18/2025 6:13 PM Riley, Generic * Over the past 2 weeks, how often have you been bothered by any of the following problems?QuestionAnswerDate of AssessmentAuthorLittle interest or pleasure in doing thingsNot at all01/26/2025 6:14 PM Marilyn Gibson MAFeeling down, depressed, or hopelessNot at all01/26/2025 6:14 PM EDT Marilyn Forman MAPatient Health Questionnaire-2 Jxcri022 6:14 PM Marilyn Gibson MA * QuestionAnswerDate of AssessmentAuthorPatient Health Questionnaire-9 [...] all01/26/2025 4:13 PM EDT Charismat, Generic * Trouble concentrating on things, such as reading the newspaper or watching televisionAnswerDate of AssessmentAuthorNot at all01/26/2025 4:13 PM EDT Charismat, Generic * Moving or speaking so slowly [...] Plan of Treatment DateTypeDepartmentCare Team (Latest Contact Info)Vkhlnmrsnvs00/20/2025 10:30 AM ESTOffice Visit [facility] [address] [place] [address] Rain Souza MD [address] [place] [address] documented as of this encounter Procedures Procedure NamePriorityDate/TimeAssociated DiagnosisCommentsBLOOD CULTURE 2 Ffeeisw2409/10/2023 2:22 PM EST BLOOD CULTURE 3Dezcszw22/04/2024 2:05 PM EST ECG 12-LEAD08/31/2023 6:08 PM [...] BLOOD ORDERABLESFinal ResultPerforming OrganizationAddressCity/State/ZIP Code Phone Number [facility] * BLOOD CULTURE 1 (09/10/2023 2:05 PM [...] EST Narrative 09/02/2023 7:32 AM EST [facility] ?[address] ? [place] [address] ? Electrocardiograph Report ? Signed ? Patient: MITZI MACIAS L ?MR#: [id number] ?? : 1970 ?Acct:[id number] ?? Age/Sex: 53 / F ?ADM Date: 08/31/23 ?? Loc: MS ??214-1 ? Attending Dr: Jacqueline Becerra D.O. ? Ordering Physician: Andra Alcala ?? Date of Service: 08/31/23 ?? Procedure(s): ECG 12 lead ?? Accession Number(s): [id number] ? cc: ?[facility] ? Test Date: ?2023-08-31 ?? Pat Name: ? MITZI TANELS ?Department: ? Room: ? - ?? Gender: ? Female ? Trademark Attorney: ? : ?1970 ? Requested By: MCKAYLA BERMUDEZHHOLZ ?? Order Number: [id number] ?Reading MD: ?? LAURI ??BALL ? Measurements ?? Intervals ?[place] ? Rate: ? 102 ?P: ?67 ?? LA: ? 144 ?QRS: ?52 ?? QRSD: ? 72 ? T: ?49 ?? QT: ? 326 ? QTc: ?385 ? Interpretive Statements ?? 1120 Sinus tachycardia ?? 4068 Nonspecific Twave abnormality ?? 8102 Low QRS voltage in chest leads ?? 9140 ??abnormal rhythm ECG ? Compared to ECG 12/04/2022 21:27:48 ?? Electronically Signed On 09-02-2023 7:31:43 EST by LAURI ??BALL ? Dictated By: ?Lauri Delcid D.O. ? Signed By: ?09/02/23 0732 ? DD/ 1808 ? TD/TT: ? Lard Mixer: Procedure Note Radiology, Radiologist, MD - 09/02/[address] [address] Electrocardiograph Report Signed Patient: MITZI MACIAS LMR#: [id number] : 1970Acct:[id number] Age/Sex: 53 / FADM Date: 08/31/23 Loc: MS 214-[address]: Jacqueline Becerra D.O. Ordering Physician: Andra Alcala Date of Service: 08/31/23 Procedure(s): ECG 12 lead Accession Number(s): [id number] cc: [facility] Test Date: 2023-08-31 Pat Name: MITZI MACIAS Department: Room: - Gender: Female Trademark Attorney: : 1970 Requested By: MCKAYLA BLAS Order Number: [id number] Reading MD: LAURI DELCID Measurements Intervals [place] Rate: 102 P: 67 LA: 144 QRS: 52 QRSD: 72 T: 49 QT: 326 QTc: 385 Interpretive Statements 1120 Sinus tachycardia 4068 Nonspecific Twave abnormality 8102 Low QRS voltage in chest leads 9140 abnormal rhythm ECG Compared to ECG 12/04/2022 21:27:48 Electronically Signed On 09-02-2023 7:31:43 EST by LAURI DELCID Dictated By: Lauri Delcid D.O. Signed By:09/02/23 0732 DD/ 1808 TD/TT: Lard Mixer: Authorizing ProviderResult TypeResult StatusAmy Cari PACLTROY REGIONAL MEDICAL CENTERYNC IMAGINGFinal Result documented in this encounter Visit Diagnoses Not on filedocumented in this encounter Care Teams Team MemberRelationshipSpecialtyStart DateEnd Date Ty Amin MD PCP - GeneralFamily Medicine Ty Amin MD [address] [place] [address] PCP - GeneralFamily Medicine09/20/23 Mckayla Blas NP [address] [place] [address] [facility]/ Mckayla Blas NP [address] [place] [address] Nurse PractitionerFamily [facility]09/20/23documented as of this encounter
--- OUTSIDE RECORDS SUMMARY | 2025-05-15 10:04 | XMS_ITS | Patient Health Record ---
Author Organization [facility] [place] Address [address] [place] [address] Care Team Providers Care Junior Sales Representative Name Role Phone Mckayla Blas CNP Primary Care Provider Unavail able Armando Yañez Unavailable [phone] Allergies No Known Allergies Results Component Value Reference Range Notes PROF CHEM 8 (BAS METB) (Not yet reviewed by provider) Interpretation: Performing Lab: Notes/Report: [facility] , Sodium 142 136-145 mmol/L Potassium4.23.5-5.1 mmol/CTnrrnchn59577-060 mmol/LCarbon Kywrpsz52.521.0-32.0 mmol/LAnion Gap11.6Nymzzjb90524-756 mg/dLBlood Urea Mbgtxmfj82.07.0-18.0 mg/dL Creatinine0.820.55-1.02 mg/dLEstimated GFR ( Katty>60>=60 mL/min/1.73m 2Estimated GFR (Non- Kristen>60>=60 mL/min/1.73m 2BUN Creatinine Ratio19.5 Calcium9.08.5-10.1 mg/dLPerforming Lab:see noteML - [facility] LBCBC AUTO DIFF (Not yet reviewed by provider) Interpretation: Performing Lab: Notes/Report: [facility] ,White Blood Count12.84.0-11.0 10 3/uLRed Blood Count5.524.20-5.40 10 6/uL Fionxqsljk45.112.0-16.0 g/kWDdqvpwnxps06.936.0-48.0 %Mean Corpuscular Oaxfje33.2 81.0-99.0 fLMean Corpuscular Lickhtnzdo52.226.7-34.0 pgMean Corpuscular HGB Conc 31.629.9-35.2 g/dLRed Cell Distribution Width14.611.0-15.0 %Platelet Qbhij601 150-450 10 3/uLMean Platelet Ivcmnp69.89.5-13.5 fLNeutrophils Percent Auto67.0 43.0-75.0 %Lymphocytes Percent Auto25.120.5-60.0 %Monocytes Percent Auto5.21.7- 12.0 %Eosinophils Percent Auto1.90.9-7.0 %Basophils Percent Auto0.50.2-2.0 % Immature Granulocytes Pct Auto0.30.0-0.5 %Neutrophils Absolute Auto8.61.4-6.5 10 3/uLLymphocytes Absolute Auto3.21.2-3.8 10 3/uLMonocytes Absolute Auto0.70.3-0.8 10 3/uLEosinophils Absolute Auto0.20.0-0.7 10 3/uLBasophils Absolute Auto0.10.0- 0.1 10 3/uLImmature Granulocytes Abs Auto0.040.00-0.03 10 3/uLPerforming Lab:see noteML - [facility] LB Reason For Referral No [...] Duration: 90 DaysActiveVitamin D (Ergocalciferol) 1.25 MG (52460 UT)Oral; Duration: 90 DaysActiveBreztri Aerosphere 160-9-4.8 MCG/ACTInhalation; Duration: 30 DaysActiveSimvastatin 10 MG Oral; Duration: 90 DaysActiveRoflumilast 250 MCGOral; Duration: 28 DaysActive Immunizations Vaccine Route Administration Date Status Comme nts Flu, Fluzone (39228) 6-35mo, multi-dose vial (5317-6606) Unknown 05/18/2023 Administered Pneumococcal (Pneumovax 23)Jumgycu6804/16/20174895WzhestjgejpzNZDZ-IJV-5 (COVID 19 Pfizer 30mcg/0.3mL)Vrgsobj9607/19/2021dministered Social History Tobacco Use: Social History Observation [...] due to ty pe 2 diabetes mellitus (5997043611272) Type 2 diabetes mellitus with foot ulcer (E11.621) ActiveconfirmedProblemMorbid obesity (disorder) (302864564)Morbid (severe) obesity due to excess calories (E66.01)ActiveconfirmedProblemVenous ulcer of lower extremity due to chronic peripheral venous hypertension (966914261123897) Chronic venous hypertension (idiopathic) with ulcer of left lower extremity (I87.312)ActiveconfirmedProblemChronic non-pressure ulcer of calf extending to fat level (26896759855990359)Non-pressure chronic ulcer of other part of right lower leg with fat layer exposed (L97.812)ActiveconfirmedProblemChronic ulcer of skin of lower leg (disorder) (11390499482191668)Non-pressure chronic ulcer of other part of left lower leg limited to breakdown of skin (L97.821)Active confirmedProblemNon-pressure chronic ulcer of other part of left lower leg with fat layer exposed (L97.822)ActiveconfirmedProblemLong-term current use of inhaled steroid (785079935)MCFP (current) use of inhaled steroids (Z79.51) ActiveconfirmedProblemCOPD - Chronic obstructive pulmonary disease (24593375) COPD (chronic obstructive pulmonary disease) (J44.9)ActiveconfirmedProblem Gastroesophageal reflux disease (084840606)GERD (gastroesophageal reflux disease) (K21.9)ActiveconfirmedProblemHypertension (16353039)HTN (hypertension) (I10)ActiveconfirmedProblemObstructive sleep apnea syndrome (77868511)DANIEL (obstructive sleep apnea) (G47.33)ActiveconfirmedProblemLumbar radiculopathy (173579696)Lumbar radiculopathy (M54.16)ActiveconfirmedProblemDiabetes mellitus type 2 (disorder) (13645608)DM2 (diabetes mellitus, type 2) (E11.9)Active confirmedProblemMental disorder caused by drug (774531760)Cigarette nicotine dependence with nicotine-induced disorder (F17.219)ActiveconfirmedProblem Leukocytosis (888215094)Leukocytosis (D72.829)ActiveconfirmedProblemAcute exacerbation of chronic obstructive airways disease (581264187)COPD with exacerbation (J44.1)ActiveconfirmedProblemLong-term current use of insulin (870672159)Current use of insulin (Z79.4)ActiveconfirmedProblemIdiopathic chronic venous hypertension of both lower extremities with ulcer (I87.313)Active confirmedProblemNon-prs chr ulcer oth prt l low leg limited to brkdwn skin (L97.821)ActiveconfirmedProblemStasis dermatitis co-occurrent with venous ulcer of right lower extremity due to chronic peripheralvenous hypertension (984343122673107)Idiopathic chronic venous hypertension of right lower extremity with ulcer (I87.311)ActiveconfirmedProblemChronic venous hypertension with ulcer and inflammation involving left side (I87.332)ActiveconfirmedProblemAbnormal arterial blood gas (580735630)Elevated carbon dioxide level (R79.81)Active confirmedProblemSkin ulcer of right knee, limited to breakdown of skin (L97.811) ActiveconfirmedProblemDiabetes mellitus (02717141)Diabetes mellitus (E11.9) Activeconfirmed Encounters Encounter Location Date Provider Diagnosis Pulmonary Medicine [facility] [address] [place] [address] 12/02/2024 Armando Yañez Plan Of Treatment Pending Test Test Name Order Date CBC AUTO DIFF 08/27/2024 PROF CHEM 8 (BAS METB) 08/27/2024 VC SEGMENTAL PRESSURES 04/24/2024 Insurance Providers Payer Name Payer Address Payer Phone Subscriber Number Group Number Insured Name Patient Relationship to Insured Coverage Start Date Coverage End Date [facility] [employer] [address] [place] [address] [id number] Ottoniel Macias - patient is the insured [...] (hyperlipidemia) E78.5 Elevated carbon dioxide level R79.81 MCFP (current) use of inhaled stero ids Z79.51 Anxiety and depression F41.8 GERD (gastroesophageal reflux disease) K 21.9 Surgical History Surgery Date(Month/Year) hysterectomy cholecystectomytoe surgeryHospitalization History Reason Date(Month/Year) Pneumonia -[facility] 08/31/2023 COPD Exacerbation-[facility] 09/10/2023
--- OUTSIDE RECORDS SUMMARY | 2025-05-15 10:04 | XMS_ITS | Clinical Summary ---
Author Organization [facility] Address [address] [place] [address] Care Team Providers Care Tech Writer Name Role Phone Mckayla Blas MD Primary Care Provider [phone] Allergies No known active allergies Medications MedicationSigDispense [...] INJECT 48 UNITS SUBCUTANEOUSLY TWICE DAILY02/06/2022ctive HYDROcodone-acetaminophen ([place]) 5-325 mg tablet TAKE 1 TABLET BY MOUTH THREE TIMES A DAY NEEDED FOR PAIN MUST LAST 30 DAYS 11/09/2023ctive DULoxetine (Cymbalta) [address] capsule Take 1 tablet by mouth in the morning.Active ergocalciferol (Vitamin D-2) 1.25 MG (69087 Units) capsule Take 1.25 mg by mouth.Active [...] Problems ProblemNoted DateDiagnosed DateCellulitis of left lower gwfxjomrk62/03/2025Fever 12/09/2024igarette nicotine dependence without juktipspuenp47/21/2025Vitamin D deficiency, mtwuyrjnaeu19/21/2025ntibiotic-induced yeast vsishekie25/19/2025 Idiopathic chronic venous hypertension of both lower extremities with ulcer 08/27/2024Long term current use of inhaled rkilcfa3308/27/2024Vitamin deficiency 08/27/2024ad odor of urine08/08/2024hronic diastolic heart nubinjg7408/08/2024 Myelolipoma of adrenal gland07/14/2024ritical limb ischemia of right lower rokomugsx63/12/2024Venous ulcer of right leg06/19/2024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 2 diabetes qbhouhis37/05/2024 Overview (08/08/2024): Eye exam 05/13/24 Hyperpigmentation of skin04/14/20241018Ppldqzzlq45Headache Left flank painMixed incontinence urrent kszapl13 Overview (11/14/2023): Added secondary to documentation in Social History. Candidiasis of mpanss81 Overview (11/14/2023): Last Assessment & Plan: Skin care, Non-seasonal allergic xgpcoqfm63Encounter for screening mammogram for malignant neoplasm of fnolvg10lass 3 severe obesity with serious comorbidity and body mass index (BMI) of 50.0 to 59.9 in adultdrenal mass 1 cm to 4 cm in ashoktsu27/11/2024 11/14/20239520Fwjcuuyicce21ervical Chronic pain of both kneesecreased functional mobility GERD (gastroesophageal reflux disease) Yurvhipxtwyoov13InsomniaKidney stone AD (peripheral artery disease)neumonia adiculopathy, lumbar darewf30Unilateral primary osteoarthritis, right hipVenous insufficiency Overview (11/14/2023): Last Assessment & Plan: Open wounds refer to [facility] Wound Care Vaginal yeast mcnawbxjf37nxiety and iacuzhjfzh34/02/2024 11/14/2023ilateral lower extremity edema Overview (11/14/2023): Last Assessment & Plan: Continue w pamela, discussed skin care regimines as well Diabetic xzahfgvvom74Hypertension Overview (11/14/2023): Last Assessment & Plan: No changes today in meds Obstructive sleep apnea Overview (11/14/2023): Last Assessment & Plan: DME needs to send her a new mask for her machine, I have emphasized the importance of getting in touch with them so she can do this Type 2 diabetes mellitus with complication, with long-term current use of ltdqwwa53 Overview (11/14/2023): Last Assessment & Plan: Continue with Libby for management RAGHU jljuzgbm99Other chronic painMI 50.0- 59.9, adult05/21/Easy rmmprezk73losed fracture of upper end of lzccsmu60/27/bdominal iocqdc12 Pqanus36ardiomegaly Overview (11/14/2023): borderline borderline Acute respiratory distress dnssmlci99Gout Resolved Problems ProblemNoted DateDiagnosed DateResolved DatePulmonary fjxqyvgutdva51/11/2024 Overview (11/14/2023): Last Assessment & Plan: Needs to wear her PAP I am also going to have her see [facility] Cardiology as well Family History Medical HistoryRelationNameCommentsHeart attackPaternal GrandmotherRelationName StatusCommentsFatherDeceasedMotherDeceasedPaternal Grandmother Social History Tobacco UseTypesPacks/DayYears UsedDateSmoking Tobacco: Every DayCigarettes Smokeless Tobacco: Never Tobacco Cessation:Ready to Q uit: Not Asked; Counseling Given: Not Answered Alcohol UseStandard Drinks/WeekCommentsNot Currently0 (1 standard drink = 0.6 oz pure alcohol)MO Safety & EnvironmentAnswerDate RecordedFear of Current or Ex-PartnerNot on file08/30/2023Emotionally AbusedNot on file08/30/2023hysically AbusedNot on file08/30/2023Sexually AbusedNot on file08/30/2023hysically or Sexually AbusedNot on file08/30/2023CommentsUnknownSex and Gender InformationValueDate RecordedSex Assigned at BirthNot on fileLegal SexFemale 01/04/2022 10:08 PM EDTGender IdentityNot on fileSexual OrientationNot on file Last Filed Vital Signs Vital SignReadingTime TakenCommentsBlood Ixjdjcbz643/6407 11:41 AM EDT Bgnzv548301/06/2025 11:41 AM QCCGbhorzocvhi52.7 ??C (98.1 ??F)12/12/2018 2:44 PM EDTRespiratory Rate--Oxygen Tlolppmvsb87%01/06/2025 11:41 AM EDTInhaled Oxygen Concentration--Pkofoc659 kg (376 lb)01/06/2025 11:41 AM QJAJmtgvy348.2 cm (5' 7 )01/06/2025 11:41 AM EDTBody Mass Index58.8907 11:41 AM EDT Plan of Treatment Health MaintenanceDue DateLast DoneCommentsCT Syrobnoierzh66/17/1971Colonoscopy 1970Colorectal Cancer Ggkeohvck71/17/1971Diabetes: Hemoglobin A1C 1970FIT-DNA1970FIT1970FOBT1970Medicare Annual Wellness (AWV)1970 4288Vwaiggehlxtyr68/17/1971Diabetes: Retinopathy Dqvpzjjms80/17/1981 Depression Dhdvcvekd49/17/1983Diabetes: Urine Protein Eqjwdkvps40/17/1990 Hepatitis B Vaccines (1 of 3 - 19+ 3-dose series)1989Pap Smear1991 Adult Crdjyfm8608/25/1992Cervical Cancer Zrkrazrxy37/17/2001HPV/Wpcdrm5408/25/2000 Gxauiheje58/17/2011Pneumococcal Vaccine: Pediatrics (0 to 5 Years) and [...] Mckayla Blas MD [address] [place] [address] PCP - GeneralNurse Practitioner11/13/23
--- OUTSIDE RECORDS SUMMARY | 2025-05-15 10:04 | XMS_ITS | Encounter Summary ---
Author Organization [facility] Address [address] [place] [address] Care Team Providers Care Helpdesk Technician Name Role Phone Ty Amin MD Primary Care Provider [phone] Mckayla Blas SIZE CUTTER Unavailable [phone] Mckayla Blas NP Unavailable [phone] Encounter Details DateTypeDepartmentCare Team (Latest Contact Info)Llbysjgnrjf83/07/2024Clinisync Result Encounter [facility] External Department Unsolicited Mckayla Blas NP [address] [place] [address] Social History Tobacco UseTypesPacks/DayYears UsedDateSmoking Tobacco: Every [...] , never , or living with a partner?Beyympj1308/26/2024UDIT-C AnswerDate RecordedQ1: How often do you have [...] heating?Not hard at all08/26/2024PHQ-2AnswerDate RecordedPatient Health Questionnaire-2 Bhklm044Finheber valley medical center [place] of Occupational Health - Occupational Stress QuestionnaireAnswerDate RecordedDo you feel stress - tense, restless, nervous, or anxious, or unable to sleep at night because yourmind is troubled all the time - these days?Only a keyryv8708/26/2024 Exercise Vital SignAnswerDate RecordedOn average, how many [...] steady place to sleep or slept in [place] (including now)?No07/10/2023Housing Stability Vital SignAnswerDate RecordedIn the [...] RecordedSex Assigned at BirthNot on fileLegal Sex Hpujqt6109/20/2022 6:50 PM EDTGender IdentityNot on fileSexual OrientationNot on filedocumented as of this encounter Functional Status * AUDIT-C ScoreAnswerDate of IkogwcubuuImuuld971/18/2025 6:13 PM Riley, Generic * Q1: How [...] or more drinks on one occasion?AnswerDate of LhqdcaqbdnIvwvodUltrr38/18/2025 6:13 PM Wiliam Lin * Over the past 2 weeks, how often have you been bothered by any of the following problems?QuestionAnswerDate of AssessmentAuthorLittle interest or pleasure in doing thingsNot at all01/26/2025 6:14 PM Marilyn Gibson MA Feeling down, depressed, or hopelessNot at all01/26/2025 6:14 PM Marilyn Gibson MAPatient Health Questionnaire-2 Ndccl672 6:14 PM EDT Marilyn Forman MA * [...] Plan of Treatment DateTypeDepartmentCare Team (Latest Contact Info)Szthbdywvzd90/20/2025 10:30 AM ESTOffice Visit [facility] [address] [place] [address] Rain Souza MD [address] [place] [address] documented as of this encounter Procedures Procedure NamePriorityDate/TimeAssociated DiagnosisCommentsMM TOMOSYNTHESIS SCREENING BI12/14/2023 11:21 AM EDT documented in this encounter Results * MM TOMOSYNTHESIS SCREENING BI (12/14/2023 11:21 AM EDT)Anatomical Region LateralityModalityOtherSpecimen (Source)Anatomical Location / Laterality Collection Method / VolumeCollection TimeReceived Time12/14/2023 11:21 AM EDT Narrative 12/14/2023 11:22 AM EDT [facility] ?[address] ? [place] [address] ? Mammography Report ? Signed ? Patient: MACIAS,MITZI L ?MR#: [id number] ?? : 1970 ?Acct:[id number] ?? Age/Sex: 53 / F ?ADM Date: 12/13/23 ?? Loc: MAMMO ? Attending Dr: Mckayla J Aichholz SIZE CUTTER ? Ordering Physician: Aichholz,Mckayla SIZE CUTTER ?Results: ? Date of Service: 12/13/23 ?Follow Up: ? Procedure(s): MM tomosynthesis screening BI ?? Accession Number(s): [id number] ? cc: Mckayla Blas SIZE CUTTER ? Patient Name: ? MITZI MACIAS ? MR#: [id number] ? : 1970 ? Exam Date: 12/13/2023 [...] ??75. ? LOCATION: ? [facility] ? BREAST COMPOSITION: ? The breasts [...] ?12/14/232 ? DD/ 1121 ? TD/TT: ? Layout Inspector: Procedure Note Radiology, Radiologist, - 12/14/2023 [place] [address] Mammography Report Signed Patient: MITZI MACIAS LMR#: [id number] : 1970Acct:[id number] Age/Sex: 53 / FADM Date: 12/13/23 Loc: MAMMO Attending Dr: Mckayla Blas NP Ordering Physician: Mckayla Blas NPResults: Date of Service: 12/13/23Follow Up: Procedure(s): MM tomosynthesis screening BI Accession Number(s): [id number] cc: Mckayla Blas NP Patient Name: MITZI MACIAS MR#: [id number] : 1970 Exam Date: 12/13/2023 Ordering Doctor: SAYDA Blas JUVENILE DETENTION OFFICER RADIOLOGY REPORT PROCEDURE: MM TOMOSYNTHESIS SCREENING [...] at age 75. LOCATION: [facility] BREAST COMPOSITION: The breasts are almost [...] M.D. Signed By:12/14/23 1122 DD/ 1121 TD/TT: Layout Inspector: Authorizing ProviderResult TypeResult StatusLisa [facility] Hazeltontalia NPCLINISYNC IMAGING Final Result documented in this encounter Visit Diagnoses Not on filedocumented in this encounter Care Teams Team MemberRelationshipSpecialtyStart DateEnd Date Ty Amin MD [address] [place] [address] PCP - [facility] Medicine09/20/23 Mckayla Blas NP [address] [place] [address] PCP - [facility]/ Mckayla Blas NP [address] [place] [address] Nurse PractitionerFasaint joseph's hospital Medicine09/20/23documented as of this encounter
--- OUTSIDE RECORDS SUMMARY | 2025-05-15 10:04 | XMS_ITS | Clinical Summary ---
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 Name Role Phone Ty Amin MD Primary Care Provider [phone] Mckayla Blas NP Unavailable [phone] Allergies No known active allergies Medications [...] (six) hours if needed for wheezingActive HYDROcodone-acetaminophen ([place]) 5-325 MG tablet 1 tablet as needed [...] mellitus with other circulatory complications ([facility]) USE TO TEST BLOOD SUGAR 4 TIMES DAILY 400 strip 4Active baclofen (Lioresal) 10 MG tablet Take 10 mg by mouth in the morning and 10 mg in the evening and 10 mg before bedtime.4Active naloxone (Narcan) 4 mg/0.1 mL nasal spray Administer 4 mg into affected nostril(s) if wrzkpm114Active nicotine (Nicoderm, Step 1) 21 MG/24HR patch [...] DAYS 5Active ergocalciferol (Vitamin D2) 1.25 MG (22775 UT) capsule Indications:Vitamin D deficiency, unspecifiedTake 1 [...] long-term current use of insulin ([facility])Chew 1 tablet (81 mg) Daily 90 tablet [...] long-term current use of insulin ([facility])Inject 58 Units under the skin in the morning and 58 Units before bedtime. 104.4 mL 107501/6Active insulin glargine (Lantus SoloStar) 100 UNIT/ML pen Indications:Type 2 diabetes mellitus with hyperglycemia, with long-term current use of insulin ([facility])INJECT 58 UNITS SUBCUTANEOUSLY TWICE A DAY 105 mL 5Active Tirzepatide (Mounjaro) 15 MG/0.5ML solution auto-injector Indications:Type 2 diabetes mellitus with other circulatory complications ([facility]) Inject 15 mg under the skin 1 (one) time per week 6 mL 5Active varenicline (Chantix) 1 MG tablet Indications:Tobacco user,Encounter for smoking cessation counselingTAKE 1 TABLET BY MOUTH IN THE MORNING AND 1 TABLET BEFORE BEDTIME. TAKE WITH FULL GLASS OF WATER. 60 tablet 5Active Active Problems ProblemNoted DateDiagnosed DateStasis dermatitis with ulcer of right lower extremity due to peripheral venous ujltfrcpysgf22/03/2705Ljora16/03/2025 Assessment & Plan (12/09/2024 7:26 AM EDT): Tylenol prn fever Finish atb's Cellulitis of left lower hdaynpuma88/03/2025 Assessment & Plan (12/09/2024 11:27 AM EDT): Finish atbs Keep appt with wound care A febrile Will call me if worsening in sxs Cigarette nicotine dependence without efgjmvgeztjk61/21/2025 Assessment & Plan (10/27/2024 2:40 PM EDT): Is currently using chantix, and is doing well, less desire, smoking less Vitamin D deficiency, qjnexuzkhzq89/21/2025Gastro-esophageal reflux disease without pcraosapede86/21/2025 Assessment & Plan (01/26/2025 7:51 AM EDT): Recommendations: freq small meals, nothing to eat or drink at least 2 hours prior to bed, limit caffeine, alcohol, as well as spicy foods Meds to limit or avoid if possible: NSAIDS Elevate HOB if possible Current meds: ompeprazole Morbid (severe) obesity due to excess votvqxnu57/19/2025 Assessment & Plan (01/26/2025 6:46 PM EDT): [...] wrapped, 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 as possible correction current use of inhaled bjtqajb1408/27/2024Non-pressure chronic ulcer of other part of left lower leg limited to breakdown of skin08/27/2024Vitamin prensvjlko05/19/2025ntibiotic-induced yeast qmjvcigqd01/19/2025hronic diastolic heart ajsmlpy8008/08/2024 Assessment & Plan (01/26/2025 7:52 AM EDT): [...] counseling 07/14/2024ritical limb ischemia of right lower iditekhjc16/12/2024 Assessment & Plan (07/14/2024 7:32 PM EST): Saw vascular, does have narrowing in arteries in legs, and thus the wounds not healing At this point they strongly urge to quit smoking or risk limb amputation Cont asa and statin Also good blood pressure and sugar control 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 Does have left OM, will treat for this and if not better can try ubrelvy #3 samples given: Lot [id number], exp 03/2025 Mixed qdrjhqtynshz67/08/4326Lukwuiikh91/08/2024Encounter for screening mammogram for malignant neoplasm of qassev4111/01/2023Non-seasonal allergic rhinitis 11/01/2023andidiasis of aobmpt6411/01/2023 Assessment & Plan (11/01/2023 11:21 AM EDT): Skin care, Rftqxtrm63/11/2024 Assessment & Plan (01/26/2025 6:44 PM EDT): elavil Radiculopathy, lumbar nqpdgc7309/17/2023 Assessment & Plan (07/14/2024 7:36 PM EST): [...] is necessary they take over prescribing Pancreatitis ([facility])09/17/2023OPD fscglhclrsyf14/11/2024 Assessment & Plan (12/09/2024 11:26 AM EDT): [...] 11:17 AM EDT): Open wounds refer to [facility] Pulmonary zukrgxylxwnt91/11/2024 Assessment & Plan (01/26/2025 7:52 AM EDT): [...] [[email or web address] Cardiology as well PAD (peripheral artery disease)09/17/2023 Assessment & Plan (10/27/2024 2:38 PM EDT): Asa, statin Quit smoking BP and DM control Assessment & Plan (07/14/2024 7:32 PM EST): Asa, statin Quit smoking BP and DM control Malignant neoplasm of cervix uteri, wcbgxizcfnk03/11/2024 Assessment & Plan (08/27/2024 7:33 AM EST): Had in the past, had hysterectomy Pqrqjrpzgdf19/11/2024Unilateral primary osteoarthritis, right hip09/17/2023 Chronic pain of both knees09/17/20232648Whcfxgpekzwihw78/11/2024 Assessment & Plan (01/26/2025 7:49 AM EDT): On statin therapy Check labs yearly and prn dose changes Assessment & Plan (08/27/2024 7:36 AM EST): On statin therapy Check labs yearly and prn dose changes Decreased functional brsykwvs73/11/2024drenal mass 1 cm to 4 cm in diameter 09/17/2023 Assessment & Plan (07/14/2024 7:33 PM EST): Continue with Urology Kidney stone09/17/2023 Assessment & Plan (07/14/2024 7:32 PM EST): Continue with Urology Ctyazrjotye92/11/2024Vaginal yeast vifqgojrc61/09/2024 Assessment & Plan (01/26/2025 6:46 PM EDT): [...] reach out to DME for help Diabetic ndrjkiymul25/02/2024 Assessment & Plan (01/26/2025 7:53 AM EDT): [...] spiriva Will trial breztri: #2 samples given [id number], exp 03/03, rinse mouth after use Give [...] no changes in inhalers Recommend quitting smoking Torvsd5107/10/2023 Assessment & Plan (01/26/2025 6:44 PM EDT): Current meds: albuterol, duoneb, 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 Assessment & Plan (08/27/2024 7:30 AM EST): Current meds: albuterol, duoneb, 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 Assessment & Plan (01/17/2024 12:36 PM EDT): Cont w inhalers, pulmonology Quit smoking Fuanfpqnjlhk56/02/2024 Assessment & Plan (01/26/2025 7:52 AM EDT): [...] from hospital, lost script I did contact [facility] in [place], they will get another fill on this and have ready for patient Fu in 4 weeks Assessment & Plan (07/10/2023 11:59 AM EST): Stable on current dose of meds Type 2 diabetes mellitus with complication, with long-term current use of rjydwam4707/10/2023 Assessment & Plan (01/26/2025 7:50 AM EDT): [...] odonnell for management of diabetes Anxiety and fjbfebjhhg02/02/2024 Assessment & Plan (01/26/2025 6:46 PM EDT): [...] discussed skin care regimines as well RAGHU udcupkok80/11/3853Ctgjupjryuly38/19/2018 Overview (09/17/2023): borderline Gout10/25/2017 Resolved Problems ProblemNoted [...] left ear without spontaneous rupture of tympanic cksbubdd66lass 3 severe obesity with serious comorbidity and body mass index (BMI) of 50.0 to 59.9 in adult09/27/2023 04/14/20244839Znmkzkgph19/11/202404/GERD (gastroesophageal reflux disease) Assessment & Plan (10/27/2024 [...] (BMI) of 60.0 to 69.9 in adult/bdominal efmjsg42 Encounters DateTypeDepartmentCare ImkcHdmsedtqnio71/01/2025Refill [facility] [address] [place] [address] Mckayla Blas NP Tobacco user; Encounter for smoking cessation weebadmegk63/22/2025Refill [facility] [address] [place] [address] Amber Pinzon LPN Type 2 diabetes mellitus with other circulatory complications (HCC)02/26/2025 Refill [facility] [address] [place] [address] Rain Odonnell MD Type 2 diabetes mellitus with other circulatory complications (HCC)02/18/2025 Abstract [facility] [address] [place] [address] Mckayla Blas NP 02/14/2025Refill [facility] [address] [place] [address] Rain Odonnell MD Type 2 diabetes mellitus with hyperglycemia, with long-term current use of insulin (HCC)from Last 3 Months Immunizations ImmunizationAdministration DatesNext DueInfluenza Whole05/02/2013Influenza, E6M5-122638/09/2017,05/10/2016Influenza, Bfzpbdslcye58/10/2023,04/16/2017, 05/10/2016Influenza, injectable, iqyqxkqftzss17/10/2023,05/02/2013MMR01/29/1998 Pneumococcal Polysaccharide EXMD8974 Family History Medical HistoryRelationNameCommentsNo Known ProblemsFatherVaricose veinsFather's [...] other written material from your doctor or pharmacy?Jstioh5208/26/2024Humiliation, Afraid, Rape, and Kick questionnaireAnswerDate RecordedWithin the [...] relatives?Once a week08/26/2024How often do you attend mandaeism or rastafarian services?More than 4 times per year 08/26/2024Do you belong to any clubs or organizations such as mandaeism groups, unions, fraternal or athletic groups, or school groups?No08/26/2024How often do you attend meetings of the clubs or organizations you belong to?Never08/26/2024 Are you , , , , never , or living with a partner?Krynshp3808/26/2024UDIT-CAnswerDate RecordedQ1: How often do you have a [...] Health Questionnaire-2 Score0 01/26/2025[facility] [place] [facility] Occup[facility] Health - Occupational Stress QuestionnaireAnswerDate RecordedDo you feel stress - tense, restless, nervous, or anxious, or unable to sleep at night because yourmind is troubled all the time - these days?Only a zyonzk4508/26/2024Exercise Vital SignAnswerDate Recorded On average, how many [...] or living in a skilled nursing (including now)?No08/26/2024 CommentsUnknownSex and Gender InformationValueDate RecordedSex Assigned at BirthNot on fileLegal SivEdexig27/15/2023 6:50 PM EDTGender IdentityNot on fileSexual OrientationNot on file Last Filed Vital Signs Vital SignReadingTime TakenCommentsBlood Yydjcdpg139/70001/29/2025 9:48 AM EDT Mzcvk7551/24/2025 9:48 AM ONXUvnjxshdzxi46.9 ??C (98.5 ??F)01/26/2025 6:11 PM EDTRespiratory Qpcm886801/29/2025 9:48 AM EDTOxygen Mauamprxdu45%01/29/2025 9:48 AM EDTInhaled Oxygen Concentration--Npwgvc049 kg (360 lb)01/29/2025 9:48 AM EDT Xphgcs209.2 cm (5' 7 )01/29/2025 9:48 AM EDTBody Mass Index56.3807 9:48 AM EDT Plan of Treatment DateTypeDepartmentCare Team (Latest Contact Info)Cdxgpmzfbrx42/20/2025 10:30 AM ESTOffice Visit [facility] [address] [place] [address] Rain Odonnell MD [address] [place] [address] Health MaintenanceDue DateLast DoneCommentsCT Wnekuldwfgck01/17/1971Colonoscopy 1970FIT1970FOBT1970 2490Eksvhdrwamutj90/17/1971HPV/Fcjuwf0408/25/2000 Pap Smear04/, 10/08/20152527Pzzvbsurw28/07/622985/01/2024, 12/14/2023, 3COVID-19 Vaccine ( season)/05/2022, 10/28/2020, 10/08/2020Influenza Vaccine (#1)/04/2023, 05/18/2023, 04/16/2017, Additional history existsColorectal Cancer Ydcdrygxf40/26/2026 FIT-DNA603Pneumococcal Vaccine: Pediatrics (0 to 5 Years) [...] EDT Narrative 12/14/2023 11:22 AM EDT [facility] ?[address] ? [place] [address] ? Mammography Report ? Signed ? Patient: MACIAS,SINA L ?MR#: [id number] ?? : 1970 ?Acct:[id number] ?? Age/Sex: 53 / F ?ADM Date: 12/13/23 ?? Loc: MAMMO ? Attending Dr: Mckayla J Aichholz LACE BURN OUT TENDER ? Ordering Physician: Juanjosehdallin,Mckayla LACE BURN OUT TENDER ?Results: ? Date of Service: 12/13/23 ?Follow Up: ? Procedure(s): MM tomosynthesis screening BI ?? Accession Number(s): [id number] ? cc: Mckayla Blas LACE BURN OUT TENDER ? Patient Name: ? SINA MACIAS ? MR#: [id number] ? : 1970 ? Exam Date: 12/13/2023 [...] at age ??75. ? LOCATION: ? [facility] ? BREAST COMPOSITION: ? The [...] 1122 ? DD/ 1121 ? TD/TT: ? Scientific Technical Writer: Procedure Note Radiology, Radiologist, MD - 12/14/2023 [place] [address] Mammography Report Signed Patient: SINA MACIAS LMR#: [id number] : 1970Acct:[id number] Age/Sex: 53 / FADM Date: 12/13/23 Loc: MAMMO Attending Dr: Mckayla Blas NP Ordering Physician: Mckayla Blas NPResults: Date of Service: 12/13/23Follow Up: Procedure(s): MM tomosynthesis screening BI Accession Number(s): [id number] cc: Mckayla Blas NP Patient Name: SINA MACIAS MR#: [id number] : 1970 Exam Date: 12/13/2023 Ordering Doctor: SAYDA Blas GAS CHARGER RADIOLOGY REPORT PROCEDURE: MM TOMOSYNTHESIS SCREENING BI [...] M.D. Signed By:12/14/23 1122 DD/ 1121 TD/TT: Scientific Technical Writer: Authorizing ProviderResult TypeResult StatusLisa Juanjosedallin NPCLINISYNC IMAGING Final Result from Last 3 Months or Most Recently Relevant to Health Maintenance Insurance Care Teams Team MemberRelationshipSpecialtyStart DateEnd Date Ty Amin MD [address] [place] [address] [facility] - [facility] Mckayla Blas NP [address] [place] [address] Nurse PractitionerFamily Medicine09/20/23
--- OUTSIDE RECORDS SUMMARY | 2025-05-15 10:12 | XMS_ITS | CCD ---
Author Organization [facility] Care Team Providers Care Service Engineer Name Role Phone Rufino Benavidez Primary Care Provider RUFINO BENAVIDEZ Primary Care Unavailable SHENDGE, VITHAL Admitting Unavailable SHENDGE, VITHAL Attending Unavailable AICHHOLZ, MCKAYLA Primary Care Unavailable AICHHOLZ, MCKAYLA Referring Unavailable AICHHOLZ, MCKAYLA J Primary Care Physician Tico, Stephanie Unavailable OLE RAMIREZ Attending Unavailable OLE RAMIREZ Consulting Unavailable AICHHOLZ, SPEECH/LANGUAGE THERAPIST MCKAYLA Primary Care Unavailable OLE RAMIREZ Admitting Unavailable ANTONY SHRESTHA Consulting Unavailable ALONDRA ., JACQUELINE Admitting Unavailable ALONDRA ., JACQUELINE Attending Unavailable AICHHOLZ, SPEECH/LANGUAGE THERAPIST MCKAYLA Primary Care Unavailable AFSANEH Loera, DR BOLANOS Consulting Unavailable MARYANNE POWER Consulting Unavailable GLENN KERR Consulting Unavailable YOMAIRA KERR Consulting Unavailable HATTIE GOFF Consulting Unavailable ALONDRA ., JACQUELINE Consulting Unavailable TICO, STEPHANIE Attending Unavailable TICO, STEPHANIE Consulting Unavailable AICHHOLZ, SPEECH/LANGUAGE THERAPIST MCKAYLA Primary Care Unavailable TICO, STEPHANIE Admitting Unavailable REGLA ., DR DUMONT Admitting Unavailable AICHHOLZ, SPEECH/LANGUAGE THERAPIST MCKAYLA Primary Care Unavailable REGLA ., DR DUMONT Attending Unavailable ARAUZ ., DR DUMONT Consulting Unavailable COLLIN HUERTAS Consulting Unavailable CECILIA KAUFMAN Admitting Unavailable CECILIA KAUFMAN Attending Unavailable AICHHOLZ, SPEECH/LANGUAGE THERAPIST MCKAYLA Primary Care Unavailable COMFORT PRETTY Attending Unavailable COMFORT PRETTY Admitting Unavailable AICHHOLZ, SPEECH/LANGUAGE THERAPIST MCKAYLA Primary Care Unavailable AICHHOLZ, SPEECH/LANGUAGE THERAPIST MCKAYLA Admitting Unavailable AICHHOLZ, SPEECH/LANGUAGE THERAPIST MCKAYLA Primary Care Unavailable AICHHOLZ, SPEECH/LANGUAGE THERAPIST MCKAYLA Attending Unavailable AICHHOLZ, SPEECH/LANGUAGE THERAPIST MCKAYLA Consulting Unavailable LAKSHMIPATHY ., NARENDRANATH Attending Anette vailable LAKSHMIPATHY ., NARENDRANATH Consulting Anette vailable LAKSHMIPATHY ., NARENDRANATH Admitting Anette vailable AICHHOLZ, SPEECH/LANGUAGE THERAPIST MCKAYLA Primary Care Unavailable VALENZUELA ., GIL Consulting Unavailable MORTENSEN ., DR CHAPARRO Aguillon Attending Unavailable MORTENSEN ., DR CHAPARRO Aguillon Admitting Unavailable AICHHOLZ, SPEECH/LANGUAGE THERAPIST MCKAYLA Primary Care Unavailable VALENZUELA ., GIL Consulting Unavailable MORTENSEN ., DR CHAPARRO Aguillon Admitting Unavailable AICHHOLZ, SPEECH/LANGUAGE THERAPIST MCKAYLA Primary Care Unavailable MORTENSEN ., DR CHAPARRO Aguillon Attending Unavailable HALKER ., SUBHASH Consulting Unavailable LAKSHMIPATHY ., NARENDRANATH Admitting Anette vailable LAKSHMIPATHY ., NARENDRANATH Attending Anette vailable AICHHOLZ, SPEECH/LANGUAGE THERAPIST MCKAYLA Primary Care Unavailable MORTENSEN ., DR CHAPARRO Aguillon Attending Unavailable MORTENSEN ., DR CHAPARRO Aguillon Admitting Unavailable VALENZUELA ., GIL Consulting Unavailable AICHHOLZ, SPEECH/LANGUAGE THERAPIST MCKAYLA Primary Care Unavailable VALENZUELA ., GIL Consulting Unavailable MORTENSEN ., DR CHAPARRO Aguillon Attending Unavailable MORTENSEN ., DR CHAPARRO Aguillon Admitting Unavailable AICHHOLZ, SPEECH/LANGUAGE THERAPIST MCKAYLA Primary Care Unavailable HATTIE BRODERICK Attending Unavailable HATTIE BRODERICK Admitting Unavailable AICHHOLZ, SPEECH/LANGUAGE THERAPIST MCKAYLA Primary Care Unavailable AICHHOLZ, SPEECH/LANGUAGE THERAPIST MCKAYLA Admitting Unavailable AICHHOLZ, SPEECH/LANGUAGE THERAPIST MCKAYLA Consulting Unavailable AICHHOLZ, SPEECH/LANGUAGE THERAPIST MCKAYLA Primary Care Unavailable AICHHOLZ, SPEECH/LANGUAGE THERAPIST MCKAYLA Attending Unavailable AICHHOLZ, SPEECH/LANGUAGE THERAPIST MCKAYLA Primary Care Unavailable MISC, DR LESLIE Admitting Unavailable MISC, DR LESLIE Attending Unavailable MISC, DR LESLIE Consulting Unavailable DIAB ., MARIANO Admitting Unavailable DIAB ., MARIANO Attending Unavailable DIAB ., MARIANO Consulting Unavailable AICHHOLZ, SPEECH/LANGUAGE THERAPIST MCKAYLA Primary Care Unavailable RASTEGAR, RICCO Consulting Unavailable AICHHOLZ, SPEECH/LANGUAGE THERAPIST MCKAYLA Admitting Unavailable AICHHOLZ, SPEECH/LANGUAGE THERAPIST MCKAYLA Primary Care Unavailable AICHHOLZ, SPEECH/LANGUAGE THERAPIST MCKAYLA Attending Unavailable AICHHOLZ, SPEECH/LANGUAGE THERAPIST MCKAYLA Consulting Unavailable DR PATRICIA VELOZ Consulting Unavailable TAMLYN ., CECILIA Attending Unavailable TAMLYN ., CECILIA Admitting Unavailable DR PATRICIA VELOZ Consulting Unavailable AICHHOLZ, SPEECH/LANGUAGE THERAPIST MCKAYLA Primary Care Unavailable TAMLYN ., CECILIA Consulting Unavailable MORTENSEN ., DR CHAPARRO Aguillon Attending Unavailable FESTUS ., DR CHAPARRO Aguillon Consulting Unavailable FESTUS ., DR CHAPARRO Aguillon Admitting Unavailable AICHHOLZ, SPEECH/LANGUAGE THERAPIST MCKAYLA Primary Care Unavailable HATTIE BRODERICK Attending Unavailable HATTIE BRODERICK Consulting Unavailable HATTIE BRODERICK Admitting Unavailable AICHHOLZ, SPEECH/LANGUAGE THERAPIST MCKAYLA Primary Care Unavailable HATTIE BAUTISTA Consulting Unavailable AICHHOLZ, SPEECH/LANGUAGE THERAPIST MCKAYLA Admitting Unavailable AICHHOLZ, SPEECH/LANGUAGE THERAPIST MCKAYLA Attending Unavailable AICHHOLZ, SPEECH/LANGUAGE THERAPIST MCKAYLA Consulting Unavailable AICHHOLZ, SPEECH/LANGUAGE THERAPIST MCKAYLA Primary Care Unavailable Ty Amin MD Primary Care Provider Ty Amin MD Primary Care Provider Aichholz PROGRAM COORDINATOR FOR [employer]IDENCE [employer], Mckayla Unavailable Aichholz PROGRAM COORDINATOR FOR [employer], Mckayla Unavailable AICHHOLZ, MCKAYLA Attending Unavailable LIBBY, AHMAD F Attending Unavailable AICHHOLZ, MCKAYLA Attending Unavailable AICHHOLZ, MCKAYLA Attending Unavailable AICHHOLZ, MCKAYLA Attending Unavailable LIBBY, AHMAD F Attending Unavailable AICHHOLZ, MCKAYLA Attending Unavailable LIBBY, AHMAD F Attending Unavailable LIBBY, AHMAD F Referring Unavailable AICHHOLZ, MCKAYLA Attending Unavailable Aichholz PROGRAM COORDINATOR [employer], Mckayla Unavailable Aichholz PROGRAM COORDINATOR [employer]-C, Mckayla J Primary Care Provider rPice Arora DO Attending Provider Flynn Urias DPM Attending Provider Aichholz PROGRAM COORDINATOR [employer]-C, Mckayla J Attending Provider [phone] AMI ORO Attending Unavailable DAKOTAH BRIDGES Attending Unavailable Elbert ARAUZ Attending Unavailable GAVIOTA ADAMES Attending Unavailable Ty Amin MD Primary Care Provider Aichholz PROGRAM COORDINATOR [employer], Mckayla Unavailable Aichholz PROGRAM COORDINATOR [employer], Mckayla Unavailable Ty Amin MD Primary Care Provider Valdez PHIPPS, Corinne Ghosh Attending Unavail able Aichholz RIG OPERATOR-SPEECH/LANGUAGE THERAPIST, Mckayla Lennon Primary Care Unava ilable Bob RIG OPERATOR-SPEECH/LANGUAGE THERAPIST, Omero Lovell Consulting Unav ailable Bob RIG OPERATOR-SPEECH/LANGUAGE THERAPIST, Omero Lovell Attending Unav ailable Adonay DPM, Flynn Arzate Attending Unavailab le Aichholz RIG OPERATOR-SPEECH/LANGUAGE THERAPIST, Mckayla Lennon Primary Care Unava ilable Bob RIG OPERATOR-SPEECH/LANGUAGE THERAPIST, Omero Lovell Attending Unav ailable Adonay DPM, Flynn Arzate Attending Unavailab le Adonay DPM, Flynn Arzate Attending Unavailab le Aichholz RIG OPERATOR-SPEECH/LANGUAGE THERAPIST, Mckayla Lennon Primary Care Unava ilable Adonay DPM, Flynn Arzate Referring Unavailab le Bob RIG OPERATOR-SPEECH/LANGUAGE THERAPIST, Omero Lovell Attending Unav ailable Allergies Allergy ClassificationReported Allergen(s)Allergy TypeDate of OnsetReaction(s) Facility (1 source)No Known Medication Allergies; Translations: [No Known Medication Allergies]Propensity to adverse reactions (disorder)[facility] Medications Current Medications MedicationDrug Class(es)DatesSig (Normalized)Sig (Original)0.5 ML tirzepatide 30 MG/ML Auto-Injector [Mounjaro] (1 source)Start: 96-90-4717wcbswb 15 mg by subcutaneous injection every week Mounjaro 15 mg/0.5 mL subcutaneous solution INJECT 15MG SUBCUTANEOUSLY ONCE A WEEK Start Date: 06/11/24 Status: Orderedacetaminophen 325 mg / HYDROcodone bitartrate 5 mg oral tablet (20 sources)Opioid AgonistStart: 70-24-1239wmuuupeafwfbs-hydrocodone 325 mg-5 mg oral tablet Refill(s) 0 Start Date: 02/06/22 Status: OrderedStart: 12-13-2017 End: 14-56-5489dmsv 1 tablet by mouth every four hoursHydrocodone-Acetaminophen ([place]) 5-325 mg tablet Discontinued 1 TAB PO Q4H 15 0 December 13, 2017 April 05, 2025 12:52pm Fracture of humerus painStart: 74-16-0086secd 1 tablet by mouth every four to six hours as needed for painHYDROcodone-acetaminophen ([place]) 5-325 MG tablet 1 tablet 3 (three) times a day as needed for severe pain. Activetake 1 tablet by mouth twice daily as neededNorco 5-325 MG 1 tablet as needed Orally TWICE A DAY Activealbuterol 0.83 mg/ml inhalation solution (20 sources)beta2-Adrenergic AgonistStart: 52-16-7987vvbe 2.5 mg by inhalation every four to six hours as neededStart: 33-67-6388warmkjrxy 0.083% Inh Tracey 3 mL Refill(s) 0 [...] oral tablet (20 sources)Tricyclic AntidepressantStart: 02-06-2022 End: 27-04-0157zqlc 1 tablet by mouth once daily at bedtimeaspirin 81 mg chewable tablet (20 sources)Platelet Aggregation Inhibitor, Nonsteroidal Anti-inflammatory Drug Start: 11-01-2023 End: 16-01-6713ffvd 1 tablet by mouth once dailyaspirin 81 MG chewable tablet Chew 81 mg in the morning. 0 Activebaclofen 10 mg oral tablet (20 sources)gamma-Aminobutyric Acid-ergic AgonistStart: 28-41-2851utbp 1 tablet by mouth every eight hours as neededStart: 94-46-1676uwpq 1 tablet by mouth in the morning, then take 1 tablet by mouth in the evening, then take 1 tablet by mouth at bedtimebaclofen (Lioresal) 10 MG tablet Take 10 mg by mouth in the morning and 10 mg in the evening and 10mg before bedtime. 06/24/2024 Stbiro65 actuat budesonide 0.16 mg/actuat / formoterol fumarate [...] tablet (20 sources)Histamine-1 Receptor AntagonistStart: 11-01-2023 End: 35-07-4857luvy 1 tablet by mouth once daily as neededtake 1 tablet by mouth in the morningcetirizine (ZyrTEC) 10 MG tablet Take 10 mg by mouth in the morning. 0 Activedapagliflozin 10 mg oral tablet (20 sources)Sodium-Glucose Cotransporter 2 InhibitorStart: 01-17-2024 End: 05-20-3653zype 1 tablet by mouth once dailyStart: 08-14-2023 End: 99-19-7339npnd 1 tablet by mouth in the morningdapagliflozin (Farxiga) 10 MG Indications: Type 2 diabetes mellitus with unspecified complications ( CMS/HCC) Take 1 tablet (10 mg) by mouth in the morning. 90 tablet 1 08/14/2023 11/12/2023 Activediclofenac sodium 75 mg delayed release oral tablet (20 sources)Nonsteroidal Anti-inflammatory DrugStart: 95-77-6375jeji 1 tablet by mouth twice daily0.5 ML dulaglutide 9 MG/ML Auto-Injector [Trulicity] (4 sources)GLP-1 Receptor AgonistStart: 14-10-9890Uobgkswnq Pen 4.5 mg/0.5 mL subcutaneous solution Refills(s) [...] sources)Serotonin and Norepinephrine Reuptake InhibitorStart: 11-01-2023 End: 44-66-1921ztpf 1 capsule by mouth twice dailyStart: 07-23-2023 End: 00-80-7248mxcc 1 capsule by mouth in the morningDULoxetine (Cymbalta) [address] capsule Indications: Anxiety and depression (CMS/HCC) Take 1 capsule(60 mg) by mouth in the morning and 1 capsule (60 mg) before bedtime. Do not crush or chew.. 60 capsule 3 07/23/2023 08/22/2023 ActiveStart: 33-48-7691DVRfgfwkkc 30 mg Cap-EC Refills(s) 0 Start Date: 02/06/22 Status: OrderedDULoxetine 30 mg Cap-EC (2 sources)Start: 95-55-7880ELBmuvaguz 30 mg Cap-EC Refills(s) 0 Start Date: 02/06/22 Status: Orderedergocalciferol 1.25 mg oral capsule (20 sources)Provitamin D2 CompoundStart: 78-41-7015Mmlms: 01-16-2025 End: 71-32-9850aaun 1 capsule by mouth every weekergocalciferol (Vitamin D2) 1.25 MG (59671 UT) capsule Indications: Vitamin D deficiency, unspecified Take 1 capsule (1.25 mg) by mouth 1 (one) time per week 12 capsule 1 01/16/2025 04/10/2025 ActiveStart: 10-27-2024 End: 51-85-2881bbxn 1 capsule by mouth two times weeklyergocalciferol (Vitamin D2) 1.25 MG (27146 UT) capsule Indications: Vitamin D deficiency, unspecified Take 1 capsule (1.25 mg) by mouth 2 (two) times a week 24 capsule 1 10/27/2024 01/19/2025 ActiveStart: 04-06-2024 End: 20-97-3701kzog 1 capsule by mouth every weekergocalciferol (Vitamin D2) 1.25 MG (77233 UT) capsule Indications: Vitamin D deficiency, unspecified TAKE 1 CAPSULE BY MOUTH ONE TIME PER WEEK 12 capsule 1 04/06/2024 10/27/2024 Discontinued (Reorder)fluconazole 150 mg oral tablet (20 sources)Azole AntifungalStart: 08-27-2024 End: 27-36-4712mrefsdqqlpd (Diflucan) 150 MG tablet Indications: Antibiotic- induced yeast infection One time dose,repeat in 3 days . Do not take cholesterol pill while taking this medication. Once finished then resume 2 tablet 1 01/26/2025 ActiveStart: 08-17-2023 End: 29-44-8496vibozqmpygc (Diflucan) 150 MG tablet Indications: Vaginal yeast infection Take 1 tablet (150 mg) bymouth in the morning for 2 days. One time dose, may repeat in 3 days. 2 tablet 1 08/17/2023 08/19/2023 Active End: 41-39-0402uvomobjeuyc (Diflucan) 150 MG tablet Take 200 mg by mouth in the morning. 0 08/17/2023 Discontinued(Reorder)furosemide 20 mg oral tablet (20 sources)Loop DiureticStart: 09-22-2024 End: 19-10-3664oluu 1 tablet by mouth once dailyStart: 04-06-2024 End: 07-65-9031klfj 1 tablet by mouth once dailyfurosemide (Lasix) 40 MG tablet Indications: Bilateral lower extremity edema Take 1 tablet (40 mg) by mouth Daily 90 tablet 1 04/06/2024 ActiveStart: 12-13-2017 End: 25-62-4666yiea 1 tablet by mouth once daily as [...] oral tablet (20 sources)Arteriolar VasodilatorStart: 09-13-2023 End: 62-88-2568prnt 1 tablet by mouth twice dailysodium hypochlorite 2.5 mg/ml topical solution (14 sources)Start: 84-32-6303FyObiz 0.25 % external solution APPLY TO GAUZE [...] with supper. 0 ActiveNovoLog (5 sources)Insulin AnalogStart: 43-79-8521TiivFof SubCutaneous, TIDAC, Refills(s) 0 Start Date: 02/06/22 Status: OrderedNovoLOG 100 UNIT/ML as directed Injection SLIDING SCALE BEFORE EACH MEAL Active3 ml insulin glargine 100 unt/ml pen injector (20 sources)Insulin AnalogStart: 21-42-9289Kghyv: 71-89-1546nkwdgco glargine (Lantus SoloStar) 100 UNIT/ML pen Indications: Type 2 diabetes mellitus with hyperglycemia, with long-term current use of insulin (HCC) INJECT 58 UNITS SUBCUTANEOUSLY TWICE A DAY 105mL 2 02/16/2025 ActiveStart: 01-29-2025 End: 63-85-0942pllbpk 58 [IU] by subcutaneous injection in the morninginsulin glargine (Lantus) 100 UNIT/ML injection Indications: Type 2 diabetes mellitus with hyperglycemia, with long-term current use of insulin (HCC) Inject 58 Units under the skin in the morning and58 Units before bedtime. 104.4 mL 1 01/29/2025 07/28/2025 ActiveStart: 49-08-5811Rdstrp SoloStar 100 UNIT/ML pen 08/26/2024 ActiveStart: 10-30-2023 End: 02-56-3019Sebcok SoloStar 100 UNIT/ML pen 10/30/2023 04/14/2024 Discontinued (Therapy completed)Start: 91-51-8422Epebqd Solostar Pen 100 units/mL subcutaneous solution Refills(s) 0 Start Date: 02/06/22 Status: Ordered Start: 12-13-2017 End: 49-51-2277glwzeh 50 [IU] by subcutaneous injection twice dailyInsulin Glargine (Lantus U-100 Insulin) 100 unit/mL Solution Discontinued 50 UNIT SUBCUT Twice daily December 13, 2017 12:00am April 05, 2025 12:53pmLantus SoloStar 100 UNIT/ML as directed Subcutaneous 58 UNITS ONCE A DAY Active3 ml insulin lispro 100 unt/ml pen injector (20 sources)Insulin AnalogStart: 10-06-2023 End: 80-60-4948MhvnTLO KWIKPEN 100 UNIT/ML injection Inject under the skin 10/06/2023 04/14/2024 Discontinued (Therapy completed)Start: 94-37-8764jmtkgj 1 [IU] by subcutaneous injection before mealtimeInsulin [...] lactate 120 mg/ml topical lotion (20 sources)Start: 65-03-2520Acwzp: 78-23-9335qqjptyod lactate (Lac-Hydrin) 12 % lotion 07/22/2024 ActiveStart: 05-40-1550vtkbgila lactate (Lac-Hydrin) 12 % lotion APPLY TO BILATERAL FEET EVERY DAY 07/22/2024 Activelisinopril 20 mg oral tablet (20 sources)Angiotensin Converting Enzyme InhibitorStart: 02-06-2022 End: 95-44-5803kioc 1 tablet by mouth once dailymeloxicam (5 sources)Nonsteroidal Anti-inflammatory DrugStart: 67-49-4843srqyxucrp Daily, Refills(s) 0 Start Date: 02/06/22 Status: Orderedtake 1 tablet by mouth every twenty-four hoursMeloxicam 7.5 MG 1 tablet Orally Once a day ActivemetFORMIN hydrochloride 1000 mg oral tablet (1 source)Biguanidetake 1 tablet by mouth twice daily at mealtimemetFORMIN (GLUCOPHAGE) 1000 MG tablet Take 1,000 mg by mouth 2 times daily (with meals). 0 ActiveMounjaro 10 MG/0.5ML solution pen-injector (4 sources)Start: 10-22-2023 End: 83-83-7145znrqqy 10 mg by subcutaneous injection every weekMounjaro 10 MG/0.5ML solution pen-injector INJECT 10MG SUBCUTANEOUSLY ONCE A WEEK 10/22/2023 04/14/2024 Discontinued (Therapy completed)Start: 68-32-9181mwkgox 10 mg by subcutaneous injection every weekMounjaro 10 MG/0.5ML solution pen-injector INJECT 10MG SUBCUTANEOUSLY ONCE A WEEK 10/22/2023 ActiveMounjaro 15 MG/0.5ML solution auto-injector (8 sources)Start: 60-73-4928Ifqwhcrq 15 MG/0.5ML solution auto-injector Inject 15 mg as directed every 7 (seven) days 02/18/2024 Activenaloxone hydrochloride 40 mg/ml nasal spray (20 sources)Opioid AntagonistStart: 70-96-1387Mkxqu: 74-25-7029jkrukxzc (Narcan) 4 mg/0.1 mL nasal spray Administer 4 mg into affected nostril(s) if needed 07/04/2024 Wbdbqv08 hr nicotine 0.875 mg/hr transdermal system (20 sources)Cholinergic Nicotinic AgonistStart: 07-14-2024 End: 26-24-2195kwikubfn (Nicoderm, Step 1) 21 MG/24HR patch Indications: [...] capsule (20 sources)Proton Pump InhibitorStart: 12-25-2023 End: 34-69-1933lazs 1 capsule by mouth once dailytake 1 capsule by mouth before mealtimeomeprazole (PriLOSEC) [address] capsule Take 20 mg by mouth in the morning. Take before meals. Do not crush or chew. . 0 ActiveOxygen (20 sources)oxygen (O2) gas Inhale 2 L/min continuously via nasal canula Active potassium chloride 10 meq extended release oral tablet (20 sources)Start: 47-11-5133Diiwd: 02-06-2022 End: 90-09-5192mtuv 1 capsule by mouth once daily in the morningpotassium chloride ER (Micro-K) 10 MEQ ER capsule Indications: Bilateral lower extremity edema Take1 capsule (10 mEq) by mouth Daily Take 1 capsule (10 mEq) by mouth in the morning. 90 capsule 1 01/26/2025 04/26/2025 ActiveStart: 12-13-2017 End: 61-52-3418Xyfgqpolu Chloride (Klor-Con 10) 10 mEq Tablet Extended Release Discontinued 10 MEQ PO Twice daily December 13, 2017 12:00am April 05, 2025 12:56pmtake 1 tablet by mouth every twenty-four hoursPotassium Chloride ER 10 MEQ 1 tablet with food Orally Once a day ActivepredniSONE 10 mg oral tablet (11 sources)Start: 11-62-6584jpgvgkMZUH (Deltasone) 10 MG tablet 4 TABS X3 DAYS, 3TABS X3 DAYS, 2 TABS X3 DAYS, 1 TAB X3 DAYS, 1/2 TAB X4 DAYS 12/05/2024 Active pregabalin 150 mg oral capsule (20 sources)Start: 30-84-5958kofx 1 capsule by mouth once dailyStart: 08-13-2024 take 1 capsule by mouth once dailypregabalin (Lyrica) 150 MG capsule Take 150 mg by mouth Daily 08/13/2024 ActiveStart: 68-16-2255Yynrmp Oral, Refills(s) 0 Start Date: 02/06/22 Status: OrderedStart: 12-13-2017 End: 30-63-5189dpiy 1 capsule by mouth in the morningpregabalin (Lyrica) 300 MG capsule Indications: Diabetic polyneuropathy associated with type 2 diabetes mellitus (HCC) Take 1 capsule (300 mg) by mouth in the morning and 1 capsule (300 mg) before bedtime. 60 capsule 5 04/14/2024 Activeroflumilast 0.5 mg oral tablet (20 sources)Phosphodiesterase 4 InhibitorStart: 01-04-2024 End: 08-81-9955odwn 1 tablet by mouth once dailysimvastatin 10 mg oral tablet (20 sources)HMG-CoA Reductase InhibitorStart: 12-19-2024 End: 87-83-7999bdwt 1 tablet by mouth once daily at bedtimeStart: 04-06-2024 End: 80-87-5226rlqw 1 tablet by mouth at bedtimesimvastatin (Zocor) 10 MG tablet Indications: Hyperlipidemia, unspecified (CMS/HCC) Take 1 tablet (10 mg) by mouth at bedtime 90 tablet 1 08/27/2024 ActiveStart: 06-15-2023 End: 21-51-3648pvgp 1 tablet by mouth in the morningsimvastatin (Zocor) 10 MG tablet Indications: Hyperlipidemia, unspecified (CMS/HCC) Take 1 tablet (10 mg) by mouth in the morning. 90 tablet 1 06/15/2023 09/13/2023 ActiveStart: 12-13-2017 End: 85-68-2928juzs 1 tablet by mouth once daily in the eveningSimvastatin 20 mg Tablet Discontinued 20 MG PO Every evening December 13, 2017 12:00am March 1:00pmsulfamethoxazole 800 mg / trimethoprim 160 mg oral tablet (15 sources)Dihydrofolate Reductase Inhibitor Antibacterial, Sulfonamide AntimicrobialStart: 07-09-8459tqml 1 tablet by mouth twice daily sulfamethoxazole-trimethoprim (Bactrim DS) 800-160 MG per tablet TAKE 1 TABLET BY MOUTH TWICE A DAYFOR 14 DAYS 01/14/2025 ActiveStart: 08-27-2024 End: 05-76-6659tzaribjgpeblmnba-trimethoprim (Bactrim DS) 800-160 MG per tablet 08/27/2024 10/27/2024 Discontinued(Therapy completed)Symbicort 160/4.5 inhalation aerosol with adapter (3 sources)Start: 37-40-4978Pcybdpdto 160/4.5 inhalation aerosol with adapter Refill(s) 0 Start Date: 02/06/22 Status: Qjkeicv01 actuat tiotropium 0.0025 mg/actuat inhalation spray (7 sources)AnticholinergicStart: 46-88-9981Aoejvzt Respimat 60 ACT 2.5 mcg/inh inhalation aerosol Refills(s) 0 Start Date: 02/06/22 Status: Orderedtake 2 puff(s) by inhalation in the morningtiotropium (Spiriva Respimat) 2.5 MCG/ACT inhaler Inhale 2 puffs in the morning. 0 Activetake 2 puff(s) by inhalation twice daily Spiriva Respimat 2.5 MCG/ACT 2 puffs Inhalation TWICE A DAY ActiveTirzepatide (2 sources)Start: 33-22-7693Gdylmovpzaz (Mounjaro) 15 MG/0.5ML solution auto-injector (20 sources)Start: 52-08-7194dihhxn 15 mg by subcutaneous injection every week Tirzepatide (Mounjaro) 15 MG/0.5ML solution auto-injector Indications: Type 2 diabetes mellitus with other circulatory complications (HCC) Inject 15 mg under the skin 1 (one) time per week 6 mL 1 02/27/2025 ActiveStart: 54-67-6336dvrtsj 15 mg by subcutaneous injection every weekTirzepatide (Mounjaro) 15 MG/0.5ML solution auto-injector Indications: Type 2 diabetes mellitus with other circulatory complications (HCC) INJECT 15MG SUBCUTANEOUSLY ONCE A WEEK 6 mL 1 07/07/2024 ActiveStart: 71-78-1998qcnigm 15 mg by subcutaneous injection every weekTirzepatide (Mounjaro) 15 MG/0.5ML solution auto-injector Indications: Type 2 diabetes mellitus with other circulatory complications INJECT 15MG SUBCUTANEOUSLY ONCE A WEEK 6 mL 1 07/07/2024 ActiveStart: 14-58-1316pkzkau 15 mg by subcutaneous injection every weekTirzepatide [...] oral tablet (20 sources)Partial Cholinergic Nicotinic AgonistStart: 66-32-4553jkhj 1 tablet by mouth twice dailyStart: 12-19-2024 End: 48-77-5887fhfx 1 tablet by mouth in the morningvarenicline (Chantix) 1 MG tablet Indications: Tobacco user , Encounter for smoking cessation counseling TAKE 1 TABLET BY MOUTH IN THE MORNING AND 1 TABLET BEFORE BEDTIME. TAKE WITH FULL GLASS OF WATER. 60 tablet 1 03/09/2025 ActiveStart: 08-27-2024 End: 46-57-8456wmfr 1 tablet by mouth in the morningvarenicline (Chantix) 1 MG tablet Indications: Tobacco user , Encounter for smoking cessation counseling Take 1 tablet (1 mg) by mouth in the morning and 1 tablet (1 mg) before bedtime. Take with full glass of water.. 60 tablet 1 08/27/2024 ActiveStart: 12-05-2023 End: 44-83-1229Iilycqqvnrg Tartrate, Starter, 0.5 MG X 11 & 1 MG X 42 tablet [facility]/05/2023 07/14/2024 Discontinued (Therapy completed)Start: 46-31-8243Kbmhiqkbusk Tartrate, Starter, 0.5 MG X 11 & 1 MG X 42 tablet therapy pack [facility] 12/05/2023 Active Completed/Discontinued Medications MedicationDrug Class(es)DatesSig (Normalized)Sig (Original)amoxicillin 875 mg / clavulanate 125 mg oral tablet (6 sources)Penicillin-class AntibacterialStart: 12-05-2024 End: 29-34-7697rdsn 1 tablet by mouth every twelve hoursamoxicillin-clavulanate (Augmentin) 875-125 MG tablet Take 1 tablet by mouth every 12 (twelve) hours 12/05/2024 01/26/2025 Discontinued (Therapy completed)cephalexin 500 mg oral capsule (9 sources)Cephalosporin AntibacterialStart: 2024 End: 92-74-1433anxoftjefj (Keflex) 500 MG capsule 2024 10/27/2024 Discontinued (Therapy completed)Glucose Blood (ACCU-CHEK JAQUI PLUS ) (14 sources) End: 33-67-6275Zsichpx Blood (ACCU-CHEK JAQUI PLUS ) 4 (four) times a day. 07/14/2024 Discontinued (Therapy completed)Glucose Blood (ACCU-CHEK JAQUI PLUS ) 4 (four) times a day. ActiveGlucose Blood (ACCU-CHEK JAQUI PLUS ) 4 (four) times a day. 0 Active3 ml liraglutide 6 mg/ml pen injector (6 sources)GLP-1 Receptor Agonist End: 90-27-5310bspciffnviz (Victoza) 18 MG/3ML injection Inject under the skin Daily 07/14/2024 Discontinued (Therapy completed)naproxen 500 mg oral tablet (2 sources)Nonsteroidal Anti-inflammatory DrugStart: 12-13-2017 End: 12-51-8601iltb 1 tablet by mouth twice daily at mealtimeNaproxen 500 mg tablet Discontinued 500 MG PO Twice daily 20 0 December 13, 2017 12:00am April 05, 2025 12:53pm administer with food or milknortriptyline 50 mg oral capsule (18 sources)Tricyclic AntidepressantStart: 12-13-2017 End: 07-17-2121vzup 1 capsule by mouth once daily at bedtimeNortriptyline 50 mg Capsule Discontinued 50 MG PO Daily at bedtime December 13, 2017 12:00am April 05, 2025 12:53pmubrogepant 100 mg oral tablet (12 sources) End: 79-17-8620zmrb 1 tablet by mouth every twenty-four hours as needed Ubrogepant (Ubrelvy) 100 MG tablet Take 100 mg by mouth Daily as needed 07/14/2024 Discontinued (Therapy completed) Problems Active Problems Problem ClassificationProblemDateDocumented DateEpisodic/ChronicAbdominal pain (6 sources)Left flank pain; Translations: [Lower abdominal pain, unspecified] Onset: 552186-61-8022WjetozsdCriqwich foot deformities (1 source)Other hammer toe(s) (acquired), right foot; Translations: [OTHER HAMMER TOES ACQUIRED RT FOOT]Onset: 70-98-8591FqxicoqGsptjpcd foot deformities (1 source)Other hammer toe(s) (acquired), left foot; Translations: [OTHER HAMMER TOES ACQUIRED LT FOOT]Onset: 10-87-7806LmolojaSkplcyb disorders (20 sources)Mixed anxiety and depressive disorder; Translations: [Anxiety disorder, unspecified]Onset: 810527-30-8848CqyzebeCsjrfe (20 sources)Asthma; Translations: [Unspecified asthma, uncomplicated]Onset: 897274-79-7895OlclqspPnktmp of cervix (20 sources)Malignant tumor of cervix; Translations: [Malignant neoplasm of cervix uteri, unspecified]Onset: 965954-00-5584FtebhnwZfnvtl of cervix (2 sources)History of malignant neoplasm of cervix; Translations: [Personal history of malignant neoplasm of cervix uteri]79-80-9992AcepizpjIsxswqa kidney disease (5 sources)Chronic kidney disease; Translations: [Chronic kidney disease, unspecified]Onset: 02-20-2022 Resolved: 13-77-1009AdpnlsaMadmcnc obstructive pulmonary disease and bronchiectasis (20 sources)Pulmonary emphysema; Translations: [Chronic obstructive pulmonary disease with (acute) exacerbation]Onset: 131273-10-7801YzwhbcnThvhsdk ulcer of skin (20 sources)Non-pressure chronic ulcer of other part of right lower leg limited to breakdown of skin; Translations: [Non-pressure chronic ulcer of other part of left lower leg limited to breakdown of skin]Onset: 007542-26-6904Ajefjxd Congestive heart failure; nonhypertensive (20 sources)Chronic diastolic heart failure; Translations: [Chronic diastolic (congestive) heart failure]Onset: 009106-87-6000OfxgjjqDthbxcmc mellitus with complications (20 sources)Disorder of kidney due to diabetes mellitus; Translations: [Type 2 diabetes mellitus with diabetic chronic kidney disease]Onset: 02-20-2022 Resolved: 70-63-6434DlmdcmaOfjsxiwd mellitus without complication (13 sources)Type 2 diabetes mellitus; Translations: [Type 2 diabetes mellitus without complications]Onset: 585865-60-5046DwlqsynOazjejxmw of lipid metabolism (20 sources)Pure hypercholesterolemia, unspecified; Translations: [Hyperlipidemia, unspecified]Onset: 982625-17-4970DzbpwdeRufzfwmyyg disorders (20 sources)Gastro-esophageal reflux disease without esophagitis; Translations: [Gastroesophageal reflux disease]Onset: 12-05-2022 Resolved: 267917-81-1791CzyxydcHbirhovko hypertension (20 sources)Hypertensive disorder; Translations: [Essential (primary) hypertension]Onset: 028022-34-5471AzblcgeQwagxskfwqyqq symptoms and ill- defined conditions (20 sources)Mixed incontinence; Translations: [Incontinence]Onset: 02-06-2022 ChronicGout and other crystal arthropathies (20 sources)Gout; Translations: [Gout, unspecified]Onset: ChronicHypertension with complications and secondary hypertension (5 sources)Chronic kidney disease due to hypertension; Translations: [Hypertensive chronic kidney disease withstage 1 through stage 4 chronic kidney disease, or unspecified chronic kidney disease]Onset: 02-20-2022 Resolved: 26-84-8490FwsxwwvRvtr disorders (1 source)Major depressive disorder, single episode, unspecified; Translations: [ANASTACIO DEPRESS D/O SINGLE EPIS UNS]Onset: 76-68-0296ZaixncuNlzpgunljyqla gastroenteritis (1 source)Noninfective gastroenteritis and colitis, unspecified; Translations: [NONINFECTIVE GE AND COLITIS UNS]Onset: 49-16-9805GndolxnqGnuneeqabks deficiencies (20 sources)Vitamin D deficiency; Translations: [Vitamin D deficiency, unspecified]Onset: 834119-74-7109IobfnhrVioltfokgqoblc (20 sources)Arthritis; Translations: [Unspecified osteoarthritis, unspecified site]Onset: 415691-95-5793SeejeobCogky aftercare (1 source)Other termite helper (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 therapy; Translations: [OTH CORRECTION CURRENT DRUG THERAPY]Onset: 81-42-9282EdimrpomCxqzx aftercare (1 source)terminal make up operator (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; Translations: [SPECIAL OFFICER CURRENT USE OF ASPIRIN]Onset: 83-05-6710UexnhbebLpsqx aftercare (6 sources)Long-term current use of insulin; Translations: [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]65-68-9590QdbllvjrSvyxv and ill-defined heart disease (20 sources)Cardiomegaly; Translations: [Cardiomegaly]Onset: 10-25-2017 44-18-5281EqafdizYkcus and ill-defined heart disease (1 source)Cardiomegaly; Translations: [Cardiomegaly]Onset: 43-29-9789Fdxqkwp Other and unspecified benign neoplasm (1 source)Benign lipomatous tumor; Translations: [Benign lipomatous neoplasm of other sites]Onset: 53-78-8281UeekevocDvado bone disease and musculoskeletal deformities (1 source)Acquired absence of other left toe(s); Translations: [ACQUIRED ABSENCE OF OTHER LEFT TOES]Onset: 20-49-4668QbfusdeuRyfzt diseases of kidney and ureters (1 source)Urinary tract obstruction; Translations: [Other obstructive and reflux uropathy]Onset: 07-56-4214RqhabisfLzeas diseases of veins and lymphatics (1 source)Chronic venous hypertension (idiopathic) with ulcer and inflammation of bilateral lower extremity; Translations: [CHRN KEO HTN ULCR INFLAM ALEX LW EXT]Onset: 67-95-5828MfhtpbnNvpif diseases of veins and lymphatics (1 source)Chronic venous hypertension (idiopathic) with ulcer of left lower extremity; Translations: [CHRON VENOUS HTN W/ULCER LT LW EXT]Onset: 09-01-2022 ChronicOther diseases of veins and lymphatics (1 source)Lymphedema, not elsewhere classified; Translations: [LYMPHEDEMA NOT ELSEWHERE CLASSIFIED]Onset: 33-04-7070WmlppeoKiiwm diseases of veins and lymphatics (5 sources)Chronic peripheral venous hypertension with lower extremity complication; Translations: [Chronic venous hypertension (idiopathic) with ulcer of bilateral lower extremity]Onset: 305856-69-3703MsvidjcLcxrs diseases of veins and lymphatics (20 sources)Chronic peripheral venous hypertension; Translations: [Chronic venous hypertension (idiopathic) with ulcer of bilateral lower extremity]Onset: 395470-85-8537HpaaruvHqzrx diseases of veins and lymphatics (18 sources)Stasis dermatitis and venous ulcer of right lower extremity due to chronic peripheral venous hypertension; Translations: [Chronic venous hypertension (idiopathic) with ulcer and inflammation of rightlower extremity] Onset: 202319-83-0376CnjkibdAwqou endocrine disorders (2 sources)Disorder of adrenal gland; Translations: [Other specified disorders of adrenal gland]Onset: 89-48-7843YouzcehDydbd endocrine disorders (20 sources)Adrenal mass; Translations: [Disorder of adrenal gland, unspecified] Onset: 606825-80-4504CwvkiulBciya endocrine disorders (2 sources)Disorder of adrenal gland, unspecifiedOnset: 02-20-2022 Resolved: 66-22-7711PubgtvwHfabi endocrine disorders (5 sources)Other specified disorders of adrenal gland; Translations: [OTHER SPEC DISORDERS ADRENAL GLAND]Onset: 32-23-1034TdrreuoYdndh gastrointestinal disorders (3 sources)Adrenal yzvl10-32-8784BykzncwgJgeew lower respiratory disease (1 source)Hypoxemia; Translations: [HYPOXEMIA]Onset: 04-16-4084OhbulophCuxzv nervous system disorders (5 sources)Chronic pain syndrome; Translations: [CHRONIC PAIN SYNDROME]Onset: 51-30-1020ChjnhkqWzkmg nervous system disorders (1 source)Other chronic pain; Translations: [OTHER CHRONIC PAIN]Onset: 97-53-9007DidmfuwAzcpw non-traumatic joint disorders (4 sources)Pain in right hip; Translations: [PAIN IN RIGHT HIP]Onset: 04-27-2022 EpisodicOther nutritional; endocrine; and metabolic disorders (2 sources)Localized adiposity; Translations: [Localized adiposity]ChronicOther nutritional; endocrine; and metabolic disorders (20 sources)Body mass index 40+ - severely obese; Translations: [Body mass index (BMI) 50.0-59.9, adult]Onset: 337594-11-2937TguunqlChipr nutritional; endocrine; and metabolic disorders (3 sources)Body mass index (BMI) 50.0-59.9, adult; Translations: [BODY MASS INDEX BMI 50.0-59.9 ADULT]Onset: 22-31-6028DsfdesfErlcr nutritional; endocrine; and metabolic disorders (3 sources)Morbid (severe) obesity due to excess calories; Translations: [MORBID SEVERE OBES D/T EXCESS NHI]Onset: 72-67-7766MvxiccyUsfuw nutritional; endocrine; and metabolic disorders (1 source)Obesity, unspecified; Translations: [OBESITY UNSPECIFIED]Onset: 83-35-6665YmqstzuLftvq nutritional; endocrine; and metabolic disorders (20 sources)Obesity caused by energy imbalance; Translations: [Morbid (severe) obesity due to excess calories]Onset: 448482-99-7431ZegkqytFvxie screening for suspected conditions (not mental disorders or infectious disease) (1 source)Encounter for screening mammogram for malignant neoplasm of breast; Translations: [ENC SCR MAMMO MALIG NEOPLASM BREAST]Onset: 10-09-0677Tbbtykov Other skin disorders (2 sources)Bilateral localized swelling of lower legs; Translations: [Localized swelling, mass and lump, lowerlimb, bilateral]64-67-2128RkxrodrqKsawo upper respiratory disease (20 sources)Allergic rhinitis; Translations: [Other allergic rhinitis]Onset: 256230-34-8222CocdzsjTstsdrvrhe and visceral atherosclerosis (20 sources)Peripheral vascular disease, unspecified; Translations: [Peripheral vascular disease, unspecified]Onset: 851108-09-4353NjwsgzuQvwcloqgv heart disease (20 sources)Pulmonary hypertension; Translations: [Pulmonary hypertension, unspecified]Onset: 922885-45-3366MeymwcoQotnadlz codes; unclassified (3 sources)Obstructive sleep apnea (adult) (pediatric); Translations: [OBSTRUCTIVE SLEEP APNEA]Onset: 24-00-5423NkqmzbdClqppnno codes; unclassified (20 sources)Obstructive sleep apnea syndrome; Translations: [Obstructive sleep apnea (adult) (pediatric)]Onset: 226025-43-3405BftwnwrDictosmg codes; unclassified (1 source)Acquired absence of other specified parts of digestive tract; Translations: [ACQ ABSENCE OTH PART DIGESTV TRACT]Onset: 99-53-3557Nzozzyqr Residual codes; unclassified (1 source)Acquired absence of both cervix and uterus; Translations: [ACQUIRED ABSENCE BOTH CERVIX AND UTERUS]Onset: 55-77-4339SupnfcutMrydrcac codes; unclassified (1 source)Family history of malignant neoplasm of ovary; Translations: [FAM HX MALIGNANT NEOPLASM OVARY]Onset: 92-13-7228DjnuwlagLvqwkkoh codes; unclassified (1 source)Family history of malignant neoplasm, unspecified; Translations: [FAM HX MALIGNANT NEOPLASM UNS]Onset: 05-06-4813QrghegxvOmazprutl-related disorders (20 sources)Nicotine dependence; Translations: [Nicotine dependence, unspecified, uncomplicated]Onset: 37-11-2391FmtxwtqNngrcnj on above:Added secondary to documentation in Social History.Unclassified (1 source)SPECIAL OFFICER INJECT NONINSULN ANTIDIAB; Translations: [SPECIAL OFFICER INJECT NONINSULN ANTIDIAB]Onset: 29-93-5943Evknqsuhjkjf (3 sources)CONTACT W/AND (SUSP) EXPOS COVID-19; Translations: [CONTACT W/AND (SUSP) EXPOS COVID-19]Onset: 78-75-8504Dfxvsswvtftg (3 sources)LOW BACK PAIN, UNSPECIFIED; Translations: [LOW BACK PAIN, UNSPECIFIED]Onset: 38-07-0636Krpzofccgsvi (1 source)Obesity, class 3; Translations: [Obesity, class 3]Onset: 11-14-2023 Viral infection (1 source)COVID-19; Translations: [COVID-19]Onset: 09-29-2022 Past or Other Problems Problem ClassificationProblemDateDocumented DateEpisodic/ChronicAcquired foot deformities (1 source)Other deformities of toe(s) (acquired), left foot; Translations: [OTHER DEFORMITIES TOES ACQ LT FOOT]Onset: 32-64-4822Ktokpyup Administrative/social admission (20 sources)Patient encounter status; Translations: [Dietary counseling and surveillance]Onset: 023298-55-3804NkwpnvweHwwfvdvt of urinary tract (20 sources)Kidney stone; Translations: [Calculus of kidney]Onset: 02-06-2022 EpisodicE Codes: Natural/environment (1 source)Other and unspecified overexertion or strenuous movements or postures, initial encounter; Translations: [OTH AND UNS OVREXRT/STRN MVMT/POS INT]Onset: 74-46-5473PlhvtffmLobaq of unknown origin (18 sources)Fever; Translations: [Fever, unspecified]Onset: 919488-04-7546 EpisodicGenitourinary symptoms and ill-defined conditions (20 sources)Proteinuria; Translations: [Proteinuria, unspecified]Onset: 02-06-2022 Resolved: 25-78-0331LnxnporkAapdwpgb; including migraine (20 sources)Headache; Translations: [Headache disorder]Onset: 01-17-2024 80-12-1969JzadfmgdSoynaexvqcbfu and screening for infectious disease (20 sources)Encounter for screening for other infectious and parasitic diseases; Translations: [Anti-nuclear factor positive]Onset: 969610-72-6734Rhdkknqk Mood disorders (20 sources)Mood disorders; Translations: [DEPRESSION UNSPECIFIED]Onset: 943378-90-3991Zzqgstx (20 sources)Tinea unguium; Translations: [Candidiasis of vagina]Onset: 56-86-1825PyyefcxgVepshobnopu deficiencies (20 sources)Vitamin deficiency; Translations: [Vitamin deficiency, unspecified] Onset: 848731-07-0569VqddkznzVshlv aftercare (3 sources)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; Translations: [CORRECTION CURRENT USE OF INSULIN]Onset: 00-44-0027QkokgvyuBwlll aftercare (20 sources)Long-term current use of inhaled steroid; Translations: [shelter (current) use of inhaled steroids]Onset: 595446-54-3033BgldzsjlMhwgm and unspecified benign neoplasm (20 sources)Myelolipoma of adrenal gland; Translations: [Benign lipomatous neoplasm of other sites]Onset: 799829-52-5326IwthizqdYicoo connective tissue disease (4 sources)Other muscle spasm; Translations: [OTHER MUSCLE SPASM]Onset: 84-51-4740XzusxjnyWsgbz diseases of veins and lymphatics (20 sources)Vascular insufficiency; Translations: [Venous insufficiency (chronic) (peripheral)]Onset: 746187-44-7494LhkvtpzhTpheq diseases of veins and lymphatics (2 sources)Venous insufficiency (chronic) (peripheral); Translations: [Venous insufficiency (chronic) (peripheral)]Onset: 42-95-8882MuazmmfeNqjte hematologic conditions (1 source)Secondary polycythemiaOnset: 03-08-2022 Resolved: 18-76-0533KrifmsfrBzjzu nervous system disorders (20 sources)Reduced mobility; Translations: [Other abnormalities of gait and mobility]Onset: 576669-91-2794YjjenayxCoops non-traumatic joint disorders (1 source)Effusion, left knee; Translations: [EFFUSION LEFT KNEE]Onset: 38-14-0891VrurlljnYwlse non-traumatic joint disorders (1 source)Pain in left knee; Translations: [PAIN IN LEFT KNEE]Onset: 07-26-2022 EpisodicOther non-traumatic joint disorders (20 sources)Pain in right knee; Translations: [Pain in joint, lower leg]Onset: 054259-81-5293SoyamokzNfvun nutritional; endocrine; and metabolic disorders (20 sources)Severe obesity; Translations: [Morbid (severe) obesity due to excess calories]Onset: 07-10-2023 Resolved: 839250-18-8324MtxqbgrHceut nutritional; endocrine; and metabolic disorders (20 sources)Excess panniculus of abdomen; Translations: [Localized adiposity] Onset: 10-25-2017 Resolved: 050546-07-5385LzmdqjwFmhpv skin disorders (1 source)Nail dystrophy; Translations: [NAIL DYSTROPHY]Onset: 09-01-2022 EpisodicOther skin disorders (1 source)Corns and callosities; Translations: [CORNS AND CALLOSITIES]Onset: 82-54-9120GxtznhubLjfum skin disorders (1 source)Xerosis cutis; Translations: [XEROSIS CUTIS]Onset: 98-64-5714Mnfiuwgj Other skin disorders (20 sources)Hyperpigmentation of skin; Translations: [Disorder of pigmentation, unspecified]Onset: 705642-49-9905TfxplekfXbyglt media and related conditions (20 sources)Acute suppurative otitis media without spontaneous rupture of ear drum; Translations: [Acute suppurative otitis media without spontaneous rupture of ear drum, left ear]Onset: 01-17-2024 Resolved: 334038-42-9565SgxfxisbUuxaebarih disorders (not diabetes) (20 sources)Acute pancreatitis without necrosis or infection, unspecified; Translations: [Pancreatitis]Onset: 485867-08-5796VzfuxwnfBphzhctvi (except that caused by tuberculosis or sexually transmitted disease) (20 sources)Pneumonia; Translations: [Pneumonia, unspecified organism]Onset: 09-17-2023 Resolved: 913367-56-1157CyntfhklUizixoxy codes; unclassified (3 sources)Localized edema; Translations: [LOCALIZED EDEMA]Onset: 09-01-2022 EpisodicResidual codes; unclassified (20 sources)Edema; Translations: [Edema, unspecified]Onset: 07-10-2023 Resolved: 550035-57-8633ScioqljdTlbqkbua codes; unclassified (20 sources)Bilateral lower limb edema; Translations: [Localized edema]Onset: 513271-45-8667VxpsscmrZgewnquc codes; unclassified (20 sources)Insomnia; Translations: [Insomnia, unspecified]Onset: 09-17-2023 89-05-0764SzjveqvcJxmlngpd codes; unclassified (20 sources)Tobacco user; Translations: [Tobacco use]Onset: 09-17-2023 Resolved: 992737-88-6628HkgvbcghFzxxwcam codes; unclassified (20 sources)Edema of lower extremity; Translations: [Localized edema]Onset: 09-17-2023 Resolved: 050472-24-8822GuconukfAsyn and subcutaneous tissue infections (20 sources)Cellulitis of right lower limb; Translations: [Cutaneous abscess of left axilla]Onset: 93-53-3410XaneghodAbizrlbvnib; intervertebral disc disorders; other back problems (20 sources)Lumbar radiculopathy; Translations: [Radiculopathy, lumbar region] Onset: 230066-81-1750YkuyzqobOowpbdp and strains (1 source)Strain of muscle, fascia and tendon of lower back, initial encounter; Translations: [STRAIN MUSC FASC TENDON LW BACK INT]Onset: 52-51-4933Amxbssix Unclassified (1 source)CONTACT W/AND (SUSP) EXPOS COVID-19; Translations: [CONTACT W/AND (SUSP) EXPOS COVID-19]Onset: 29-19-7222Igstxasmstzi (1 source)LOW BACK PAIN, UNSPECIFIED; Translations: [LOW BACK PAIN, UNSPECIFIED] Onset: 39-87-7105Cxjkjikpyvwi (4 sources)Patient encounter ybijga71-84-3588Htwsatilfupb (1 source)Obesity, class 3; Translations: [Obesity, class 3]Onset: 08-08-2024 Varicose veins of lower extremity (20 sources)Varicose veins of right lower extremity with ulcer of unspecified site; Translations: [Varicose veins of lower extremities with ulcer]Onset: 06-19-2024 Resolved: 671845-74-8453Dfvtomwb Results Test NameValueInterpretationReference RangeFacilityReminderson 04-28-2025 RemindersReminders From: [...] ) Other: PROVIDER RELATED REMINDER:_ ( ) Manager Inside ( ) Call Pharmacy ( ) Call [...] unable to leave a message at this time.[facility] Office/Clinic Noteon 13-57-8763Twksleqo Office/Clinic NoteChief Complaint Leg ulcer History of Present Illness Mitzi was referred by her disaster recovery coordinator for evaluation of PVD. She has had ulcers in the bilateral lower extremities above the ankle for about a year. She has been seen by wound care in [facility]. They are applying compression with [...] signed by Corinne Kellogg MD 04/23/25 11:56 [facility] Ankle Brachial Indiceson [id number] Ankle Brachial IndicesPreliminary Technologist Report Ankle/brachial index study was performed. Please see below for information. Assembler Finger Buffs: Zayra Ag, RVS Radiologist Report BILATERAL LOWER [...] please contact our Vascular Rehabilitation Department at [phone]. Final Signed by: Jose F Casanova MD Signed (Electronic Signature): 04.17.2025 3:28 pm Transcribed by: Jose F Casanova MD Transcribed DT/TM: 04.17.2025 3:12 (If Report is Signed, Electronically Signed in Other Vendor System)[facility] HospitalBas[facility] Auto (Bld) [#/Vol]Ordered By: Flynn Urias on 78-45-8735Gyqkxtdyp (Bld) [#/Vol]0.1 10 3/uL0.0-0.1FCleveland Clinic Fairview HospitalBasophils/100 WBC Auto (Bld)Ordered By: Flynn Urias on 37-14-3699Pcnswrovb/100 WBC (Bld)0.6 %0.2-2.0[facility] Eosinophils/100 WBC Auto (Bld)Ordered By: Flynn Urias on 03-26-2025 Eosinophils/100 WBC (Bld)2.7 %0.9-7.0[facility] Erythrocyte distribution width Auto (RBC) [Ratio]Ordered By: Flynn Urias on 79-84-0151Pwlzpbjvnro distribution width (RBC) [Ratio]16.4 %High11.0-15.0 [facility] HamiltonGlomerular filtration rate (GFR) estimation in non- AmericanOrdered By: Flynn Urias on 88-34-4888WND/1.73 sq M.predicted among non-blacks MDRD (S/P/Bld) [Vol rate/Area]mL/min/{1.73_m2}>=60 mL/min/1.73m 2FCleveland Clinic Fairview HospitalHematocrit Auto (Bld) [Volume fraction]Ordered By: Flynn Urias on 97-22-6261Tcrkyklmht (Bld) [Volume fraction]52.5 %High36.0-48.0[facility] HamiltonHemoglobin [Mass/volume] in BloodOrdered By: Flynn Urias on 35-88-6583Fpguooopas (Bld) [Mass/Vol]16.1 g/vMBgmn89.0-16.0[facility] HamiltonLaboratory - Chemistry and Chemistry - challengeOrdered By: Flynn Urias on 03-26-2025 Albumin [Mass/Vol]2.8 g/dLLow3.4-5.0[facility] HamiltonCalcium [Mass/Vol]8.6 mg/dL8.5-10.1FCleveland [facility] Fairview HospitalChloride [Moles/Vol] 105 mmol/J18-010JgddalvtsKettering Health HamiltonCO2 [Moles/Vol]31.5 mmol/L 21.0-32.0[facility] HamiltonCreatinine [Mass/Vol]0.69 mg/dL 0.55-1.02[facility] HamiltonGFR/1.73 sq M.predicted MDRD (S/P/Bld) [Vol rate/Area]mL/min/{1.73_m2}>=60 mL/min/1.73m 2FCleveland Clinic Fairview HospitalGlucose [Mass/Vol]147 mg/xOVrke91-357DckrckoheKettering Health Hamilton Potassium [Moles/Vol]4.2 mmol/L3.5-5.1FWVUMedicine Barnesville Hospitalodium [Moles/Vol]141 mmol/H911-630OkcmxnhdoKettering Health HamiltonUrea nitrogen [Mass/Vol]15.0 mg/dL7.0-18.0[facility] HamiltonUrea nitrogen/Creatinine [Mass ratio]21.7 mg/mgKettering Health Hamilton Laboratory - Hematology and Cell countsOrdered By: Flynn Urias on 03-26-2025 ESR (Bld) [Velocity]48 mm/hHigh<=30[facility] HamiltonImmature granulocytes/100 WBC (Bld)0.3 %0.0-0.5FC[facility] Hospital Leukocytes [#/volume] corrected for nucleated erythrocytes in Blood by Automated counOrdered By: Flynn Urias on 42-24-0733BQV corrected for nucl RBC Auto (Bld) [#/Vol]10.0 10 3/uL4.0-11.0[facility] HamiltonLymphocytes Auto (Bld) [#/Vol]Ordered By: Flynn Urias on 49-34-3386Dzchxhlniru (Bld) [#/Vol]2.7 10 3/uL1.2-3.8[facility] HamiltonLymphocytes/100 WBC Auto (Bld)Ordered By: Flynn Urias on 12-18-0106Yixxgdluyhk/100 WBC (Bld)27.2 % 20.5-60.0[facility] HamiltonMCH Auto (RBC) [Entitic mass]Ordered By: Flynn Urias on 84-45-8432XWM (RBC) [Entitic mass]27.2 pg26.7-34.0[facility] HamiltonMCHC Auto (RBC) [Mass/Vol]Ordered By: Flynn Urias on 56-66-2622LWLB (RBC) [Mass/Vol]30.7 g/dL29.9-35.2FCleveland Clinic Fairview HospitalMCV Auto (RBC) [Entitic vol]Ordered By: Flynn Urias on 49-05-7119ISK (RBC) [Entitic vol]88.7 fL81.0-99.0[facility] HamiltonMonocytes Auto (Bld) [#/Vol]Ordered By: Flynn Urias on 01-10-8667Weebweuoi (Bld) [#/Vol] 0.5 10 3/uL0.3-0.8[facility] HamiltonMonocytes/100 WBC Auto (Bld) Ordered By: Flynn Urias on 98-22-4604Lataymaue/100 WBC (Bld)5.2 %1.7-12.0 [facility] HamiltonNeutrophils Auto (Bld) [#/Vol]Ordered By: Flynn Urias on 83-39-8831Hvtsbxsbsrg (Bld) [#/Vol]6.4 10 3/uL1.4-6.5FCleveland Clinic Fairview HospitalNeutrophils/100 WBC Auto (Bld)Ordered By: Flynn Urias on 22-35-8921Runoqxdazjy/100 WBC (Bld)64.0 %43.0-75.0[facility] HamiltonNo Panel InformationOrdered By: Flynn Urias on 77-25-7766E-Reactive Protein, Quantitative3.94 mg/dLHigh<=0.50[facility] Eosinophils # (Auto)0.3 10 3/uL0.0-0.7FCleveland Clinic Fairview HospitalImmature Granulocyte # (Auto)0.03 10 3/uL0.00-0.03[facility] Phosphorus Level3.5 mg/dL2.6-4.7FCleveland Clinic Fairview HospitalPlatelet mean volume Auto (Bld) [Entitic vol]Ordered By: Flynn Urias on 21-50-4966Guuvhrsq mean volume (Bld) [Entitic vol]12.8 fL9.5-13.5FCleveland Clinic Fairview Hospital Platelets Auto (Bld) [#/Vol]Ordered By: Flynn Urias on 79-25-6631Zylbgbgdx (Bld) [#/Vol]146 10 3/uJNal222-248ZsltjkhliKettering Health HamiltonRBC Auto (Bld) [#/Vol]Ordered By: Flynn Urias on 84-31-8462BDY (Bld) [#/Vol]5.92 10 6/uLHigh4.20-5.40St. Rita's Hospitalerum or plasma anion gap determinationOrdered By: Flynn Urias on 09-58-5128Zrzpi gap [Moles/Vol]8.7 mmol/LFCleveland Clinic Fairview HospitalBasophils Auto (Bld) [#/Vol]Ordered By: Price Arora on 20-63-2863Fxuiuqpaz (Bld) [#/Vol]0.1 10 3/uL0.0-0.1FCleveland Clinic Fairview HospitalBasophils/100 WBC Auto (Bld)Ordered By: Price Arora on 39-75-6141Qlqniiszq/100 WBC (Bld)0.4 %0.2-2.0[facility] Eosinophils/100 WBC Auto (Bld)Ordered By: Price Arora on 03-25-2025 Eosinophils/100 WBC (Bld)2.4 %0.9-7.0[facility] Erythrocyte distribution width Auto (RBC) [Ratio]Ordered By: Price Arora on 45-45-4427Jvkteuhkydm distribution width (RBC) [Ratio]16.4 %High11.0-15.0 [facility] HamiltonGlomerular filtration rate (GFR) estimation in non- AmericanOrdered By: Price Arora on 74-93-6176TNB/1.73 sq M.predicted among non-blacks MDRD (S/P/Bld) [Vol rate/Area]mL/min/{1.73_m2}>=60 mL/min/1.73m 2FCleveland Clinic Fairview HospitalHematocrit Auto (Bld) [Volume fraction]Ordered By: Price Arora on 44-60-8128Aooesxgxgy (Bld) [Volume fraction]56.6 %High36.0-48.0[facility] HamiltonHemoglobin [Mass/volume] in BloodOrdered By: Price Arora on 38-69-1864Zjzgmtibuc (Bld) [Mass/Vol]17.4 g/aQHhus52.0-16.0[facility] HamiltonLaboratory - Chemistry and Chemistry - challengeOrdered By: Price Arora on 03-25-2025 Bilirubin Ql (U)NegativeNEGATIVEKettering Health HamiltonGlucose (U) [Mass/Vol]NegativeNEGATIVEKettering Health HamiltonKetones Ql (U) NegativeNEGATIVEKettering Health HamiltonpH (U)8.0 [pH]5.0-9.0St. Rita's Hospitalpecific gravity (U) [Rel density]1.0201.005-1.025 [facility] HamiltonUrobilinogen Qn (U)1.0 {Little'U}/dL0.2-1.0 [facility] HamiltonCalcium [Mass/Vol]9.2 mg/dL8.5-10.1FCleveland Clinic Fairview HospitalChloride [Moles/Vol]106 mmol/F00-513EackgywnwKettering Health HamiltonCO2 [Moles/Vol]36.9 mmol/LHigh21.0-32.0[facility] HamiltonCreatinine [Mass/Vol]0.86 mg/dL0.55-1.02[facility] GFR/1.73 sq M.predicted MDRD (S/P/Bld) [Vol rate/Area]mL/min/{1.73_m2}>=60 mL/min/1.73m 2FCleveland Clinic Fairview HospitalGlucose [Mass/Vol]164 mg/dLHigh 74-106[facility] HamiltonPotassium [Moles/Vol]4.0 mmol/L3.5-5.1 [facility] [facility] Hospitalodium [Moles/Vol]144 mmol/L761-541WayohgxwzKettering Health HamiltonUrea nitrogen [Mass/Vol]14.0 mg/dL7.0-18.0[facility] HamiltonUrea nitrogen/Creatinine [Mass ratio]16.3 mg/mgKettering Health HamiltonLaboratory - Hematology and Cell countsOrdered By: Price Arora on 95-20-6805Ecnlthob granulocytes/100 WBC (Bld)0.3 %0.0-0.5 [facility] HamiltonLaboratory - Specimen informationOrdered By: Price Arora on 12-38-6681Jbirqedevt (U)CLEARCLEARFCleveland Clinic Fairview HospitalColor (U)LT. YELLOWYELLOWKettering Health HamiltonLaboratory - UrinalysisOrdered By: Price Arora on 05-62-6297Ftxemih casts LM Ql (Urine sed) RAREKettering Health HamiltonLeukocyte esterase Test strip Ql (U) NegativeNEGATIVEKettering Health HamiltonMucus Ql (Urine sed)TRACE AbnormalNONE SEENKettering Health HamiltonNitrite Ql (U)NegativeNEGATIVE [facility] HamiltonProtein Ql (U)100 mg/dLAbnormalNEG/TRACE [facility] HamiltonLeukocytes [#/volume] corrected for nucleated erythrocytes in Blood by Automated counOrdered By: Price Arora on 03-25-2025 WBC corrected for nucl RBC Auto (Bld) [#/Vol]11.8 10 3/uLHigh4.0-11.0[facility] HamiltonLymphocytes Auto (Bld) [#/Vol]Ordered By: Price Arora on 14-97-3513Ckstdoqcedb (Bld) [#/Vol]3.1 10 3/uL1.2-3.8[facility] HamiltonLymphocytes/100 WBC Auto (Bld)Ordered By: Price Arora on 86-14-5846Oshhwusbrre/100 WBC (Bld)26.4 %20.5-60.0[facility] Auto (RBC) [Entitic mass]Ordered By: Price Arora on 16-24-5618VNP (RBC) [Entitic mass]27.5 pg26.7-34.0[facility] CenterHC Auto (RBC) [Mass/Vol]Ordered By: Price Arora on 48-53-5153BSZV (RBC) [Mass/Vol]30.7 g/dL29.9-35.2Fire[facility] Regional Medical CenterMCV Auto (RBC) [Entitic vol] Ordered By: Price Arora on 79-48-6363VTC (RBC) [Entitic vol]89.4 fL81.0-99.0 [facility] HamiltonMonocytes Auto (Bld) [#/Vol]Ordered By: Price Arora on 66-63-5387Mtkxwgfnd (Bld) [#/Vol]0.6 10 3/uL0.3-0.8[facility] HamiltonMonocytes/100 WBC Auto (Bld)Ordered By: Price Arora on 88-05-9167Gvaesyrlw/100 WBC (Bld)5.2 %1.7-12.0[facility] Neutrophils Auto (Bld) [#/Vol]Ordered By: Price Arora on 68-14-3976Ofefigggqme (Bld) [#/Vol]7.7 10 3/uLHigh1.4-6.5FC[facility] Neutrophils/100 WBC Auto (Bld)Ordered By: Price Arora on 03-25-2025 Neutrophils/100 WBC (Bld)65.3 %43.0-75.0[facility] HamiltonNo Panel InformationOrdered By: Price Arora on 38-89-2891Nkwlw BacteriaTRACE #/HPFAbnormalNONE [facility] HospitalUrine Culture ReflexedNO [facility] HamiltonUrine Occult BloodNegativeNEGATIVEKettering Health HamiltonUrine Other CastsSEEN #/LPFAbnormalNONE [facility] HospitalUrine Other CrystalsNone Seen #/HPFNone [facility] HospitalUrine RBC0-2 #/HPF0-2FC[facility] Urine Squamous Epithelial CellsFEW #/LPFAbnormalNONE/RAREKettering Health HamiltonUrine WBC0-2 #/HPFAbnormalNONE [facility] HospitalEosinophils # (Auto)0.3 10 3/uL0.0-0.7FC[facility] Immature Granulocyte # (Auto)0.04 10 3/uLHigh0.00-0.03[facility] HamiltonPlatelet mean volume Auto (Bld) [Entitic vol]Ordered By: Price Arora on 78-06-8769Kdungbvp mean volume (Bld) [Entitic vol]12.4 fL9.5-13.5FCleveland Clinic Fairview HospitalPlatelets Auto (Bld) [#/Vol]Ordered By: Price Arora on 56-18-7932Avgshcxql (Bld) [#/Vol]160 10 3/xR315-254ThayapmcxKettering Health HamiltonRBC Auto (Bld) [#/Vol]Ordered By: Price Arora on 80-61-8940HKP (Bld) [#/Vol]6.33 10 6/uLHigh4.20-5.40St. Rita's Hospitalerum or plasma anion gap determinationOrdered By: Price Arora on 27-22-5424Fxmjc gap [Moles/Vol]5.1 mmol/LFCleveland Clinic Fairview HospitalVascular Office/Clinic Noteon 99-93-0241Wwvemmoz Office/Clinic NoteChief Complaint lle wound History of [...] She has had testing done at the [facility] last year which she brought with [...] Electronically signed by Omero Santana 03/23/25 12:01 [facility]Podiat[facility] Office/Clinic Noteon 12-58-4804Cevppwqr Office/Clinic NoteThe content of this note was [...] wraps (gauze, tila bandage, Coban II, tuba model builder), Dakins solution, a 40-daycourse of antibiotics, and [...] other blood thinners. The patient resides in [place]. Review of Systems Constitutional: Negative for signs [...] their lower extremities Positi (more content not included)...NormalOhio State East HospitalComment on above:Order Comment: Missing Attachment [id number] Can be viewed in source systemXR Tibia/Fibula Righton 30-84-4261RQ Tibia/Fibula Right2 views right tib- fib demonstrate: [...] foreign bodies noted. Final Signed by: Flynn Urisa DPM Signed (Electronic Signature): 03/11/2025 1:01 pm Transcribed DT/TM: 03/11/2025 1:01 (If Report Is Signed, Electronically Signed in Other Vendor System)Normal [facility] State East HospitalResults Follow-Upon 50-95-3014Ziicbeo Follow-Up [id number] Mitzi Macias 1970 F Date Provider Department Center 02/04/2025 166-AMI ORO CARDIOLOGY None Family History Problem Relation Age of Onset Heart attack Paternal Grandmother Family Status - Relation Status Age at Mother Father Paternal GrandmotherNTriHealth McCullough-Hyde Memorial HospitalOrders Onlyon 62-81-3626Mkvurc [id number] Mitzi Macias 1970 F Date Provider Department Center 01/30/2025 [id number], [facility] Family History Problem Relation Age of Onset Heart attack Paternal Grandmother Family Status - Relation Status Age at Mother Father Paternal GrandmoKettering Health PrebleCA ECHO DOPPLER COMPLETEon 33-37-0048[place] [address] Cardiology Report Signed Patient: MITZI MACIAS MR#: [id number] : 1970 Acct:[id number] Age/Sex: 54 / F ADM Date: 01/29/25 Loc: CARD Attending Dr: AMI ORO APRN Ordering Physician: AMI ORO APRN Date of Service: 01/29/25 Procedure(s): CA echo doppler complete Accession Number(s): [id number] cc: Mckayla Blas PROGRAM COORDINATOR FOR [employer]; AMI ORO APRN Patient Name: MITZI MACIAS MR#: [id number] : 1970 Exam Date: 01/29/2025 Ordering Doctor: AMI ORO SPEECH/LANGUAGE THERAPIST ECHOCARDIOGRAM REPORT PROCEDURE: CA ECHO DOPPLER COMPLETE [...] HERRERA Signed By: 01/29/251839 DD/ 39 TD/TT: [employer] Consulting Architect:SONNYHRadiology, Radiologist, - 01/29/2025 [place] [address] Cardiology Report Signed Patient: MITZI MACIAS MR#: [id number] : 1970 Acct:[id number] Age/Sex: 54 / F ADM Date: 01/29/25 Loc: CARD Attending Dr: AMI ORO APRN Ordering Physician: AMI ORO APRN Date of Service: 01/29/25 Procedure(s): CA echo doppler complete Accession Number(s): [id number] cc: Mckayla Blas PROGRAM COORDINATOR [employer]; AMI ORO APRN Patient Name: MITZI MACIAS MR#: [id number] : 1970 Exam Date: 01/29/2025 Ordering Doctor: [...] HERRERA Signed By: 01/29/251839 DD/ 39 TD/TT: [employer] Consulting Architect: CARLOS HealthcareRadiology Study observation (narrative)[facility] ECHO DOPPLER COMPLETEOrdered By: Radiologist Radiology on 18-13-1524RYKV Healthcare Work Phone: Glucose (Bld) [Mass/Vol]on 43-88-8878Fxjbgod Blood, HEM640 mg/dLNOMN HealthcareLaboratory - Hematology and Cell countson 01-29-2025 HbA1c (Bld) [Mass fraction]8.4 %NOMS HealthcareNo Panel Informationon 01-29-2025 Interpretation and review of laboratory resultsAbnormalNOMS HealthcareNOMS HealthcareOffice Visiton 73-91-1203Ywvenz-up [id number] Mitzi Macias 1970 F Date Provider Department Center 01/06/2025 AMI SARABIA CARD [facility] Family History Problem Relation Age of Onset Heart attack Paternal Grandmother Family Status - Relation Status Age at Mother Father Paternal Grandmother Level of Service:29[address] [place] OFFICE/OUTPATIENT ESTABLISHED MOD MDM 30 MIN Reason for Visit and Comments: Congestive Heart Failure [127] Hypertension [790899] Hyperlipidemia [182]NormalToledo Hospital36on Regarding lab results from 10/08/2024: MD Mickie Merritt MA Lipids, ALT AST, and BMP are normal. HbA1c was not performed. Continue current management. LM on patient's VM.NormalToledo HospitalGlucose (Bld) [Mass/Vol]Ordered By: Mica Sauceda on 50-78-4791Ubjdmdo Blood, POC97 mg/dLNOMN HealthcareLaboratory - Hematology and Cell countson 63-09-0022CrG7d (Bld) [Mass fraction]7.4 %NOMS HealthcareNo Panel InformationOrdered By: Mica Sauceda on 99-78-1644KZFN HealthcareTBH UA (CLEAN/CATCH) MICROSCOPIC IF INDICATEon 72-99-3385IRRTLAKDW URINENegativeNEGATIVENOMS HealthcareBLOOD URINENegative NEGATIVENOMS HealthcareClarity (U)CLEARCLEARNOMS HealthcareColor (U)YELLOWYELLOW NOMS HealthcareGLUCOSE URINE UANegativeNEGATIVE mg/dLNOMS Healthcare Interpretation and review of laboratory resultsAbnormalNOMS HealthcareKetones Ql (U)NegativeNEGATIVE mg/dLNOMS HealthcareLeukocyte esterase Test strip Ql (U) NegativeNEGATIVENOMS HealthcareNITRITE URINENegativeNEGATIVENOMS HealthcarepH (U)5.5 [pH]5.0 - 9.0NOMS HealthcareProtein (U) [Mass/Vol]30 mg/dLAbnormal NEG/TRACENOMS HealthcareSPECIFIC GRAVITY URINE>=1.274Rqxrjscf0.005 - 1.025NOMN HealthcareURINE MICROSCOPIC INDICATEDYESNOMN HealthcareUROBILINOGEN URINE1.0 EU/dL0.2 - 1.0 EU/dLNOMN HealthcareCLINISYNCNOMS HealthcareALL CBC WITH AUTO DIFFon 78-97-7382UWBZUIKUU ABSOLUTE AUTO0.1NOMS HealthcareBasophils/100 WBC (Bld)0.5 %0.2 - 2.0 %NOMS HealthcareEosinophils/100 WBC (Bld)1.9 %0.9 - 7.0 % NOMS HealthcareErythrocyte distribution width (RBC) [Ratio]14.6 %11.0 - 15.0 % NOM HealthcareHematocrit (Bld) [Volume fraction]50.9 %High36.0 - 48.0 %NOM HealthcareHemoglobin (Bld) [Mass/Vol]16.1 g/tXPpwd17.0 - 16.0 g/dLCarondelet HealthIMMATURE GRANULOCYTES ABS AUTO0.04HighNOThe Rehabilitation InstituteImmature granulocytes/100 WBC (Bld)0.3 %0.0 - 0.5 %[facility] HealthcareInterpretation and review of laboratory resultsAbnormalNOMN HealthcareLYMPHOCYTES ABSOLUTE AUTO3.2 NOMSt. Louis Children'S HospitalLymphocytes/100 WBC (Bld)25.1 %20.5 - 60.0 %[facility] InstituteH (RBC) [Entitic mass]29.2 pg26.7 - 34.0 pgNOBarton County Memorial HospitalHC (RBC) [Mass/Vol] 31.6 g/dL29.9 - 35.2 g/dLSt. Louis Behavioral Medicine InstituteV (RBC) [Entitic vol]92.2 fL81.0 - 99.0 fLCarondelet HealthMONOCYTES ABSOLUTE AUTO0.7NOMN HealthcareMonocytes/100 WBC (Bld)5.2 %1.7 - 12.0 %NOM HealthcareNEUTROPHILS ABSOLUTE AUTO8.6HighCarondelet HealthNeutrophils/100 WBC (Bld)67 %43.0 - 75.0 %Carondelet HealthPlatelet mean volume (Bld) [Entitic vol]12.8 fL9.5 - 13.5 fLCarondelet HealthTBH EO #0.2NOMS HealthcareBOSTON CITY [facility] YBN210FvrVHTXSaint John's Regional Health Center RBC5.52HighNOMN HealthcareBOSTON CITY HOSPITAL WBC12.8 VA hospitalCLINISYNCNOMS HealthcareOffice Visiton 97-50-6176Dyvypl-up [id number] Mitzi Macias 1970 F Date Provider Department Center 08/08/2024 [id number] BRIDGES [facility] Family History Problem Relation Age of Onset Heart attack Paternal Grandmother Family Status - Relation Status Age at Paternal Grandmother Level of Service:25003 [place] OFFICE/OUTPATIENT ESTABLISHED MOD MDM 30 MIN Reason for Visit and Comments: Congestive Heart Failure [127] - Denies chest pain, SOB, and palpitations. Hypertension [228933] Hyperlipidemia [182] LVH [Other] Edema [9964111148] - Denies worsening edema. She sees wound care for RLE ulcer. She was seeing the vein specialists here in town but they are moving to [place] in a few weeks.NormalToledo HospitalProvider Letteron 87-41-8582Wpcbmkmq LetterProvider Letter June 11, 2024 MITZI [address]AS [address] [place] [id number] : 1970 To Whom It May Concern, Please excuse above patient from work. Date of Illness: From: 06/11/24 8:30am To: 06/11/24 12:30pm Comments: _Brian Macias was with his for her doctor's appointment. Sincerely, Andra Forrester, Surgical SchedulerNormHighland District HospitalUrology Office/Clinic Noteon 18-05-1907Mhywzgd Office/Clinic NoteUrology Office/Clinic Note Chief Complaint 18 mth HPI Staff 53 yo here 18 month f/u CT for adrenal mass. CT SCAN 05/12/24-[facility] Previous DX: adrenal mass, kidney stone, [...] [facility] [address], [place] [address]- Additional Instructions: [address] AP [...] TIDAC potassium chloride 10 (more content not included)...[facility] HospitalComment on above:Result Comment: Electronically Signed By: Elbert ARAUZ MD\.br\Date and Time Signed: 06/11/24 10:55 EST\.br\Electronically Co- Signed By: Maria Elena Negrete\.br\Date and Time Co-Signed: 06/11/24 10:53 EST Glucose (Bld) [Mass/Vol]Ordered By: Mica Sauceda on 66-04-2291Vrdozac Blood, UKX367 mg/dLNOMN HealthcareLaboratory - Hematology and Cell countson 05-27-2024 HbA1c (Bld) [Mass fraction]9.2 %[facility] HealthcareNo Panel InformationOrdered By: Mica Sauceda on 90-54-6974QFHY HealthcareCT ABDOMEN PELVIS W CONon 05-12-2024 [place] [address] CT Scan Report Signed Patient: MITZI MACIAS MR#: [id number] : 1970 Acct:[id number] Age/Sex: 53 / F ADM Date: 05/12/24 Loc: CT Attending Dr: Gaviota MAYERS Ordering Physician: Gaviota Adames Date of Service: 05/12/24 Procedure(s): CT abdomen pelvis w con Accession Number(s): [id number] cc: Mckayla Blas NP [place] [id number] Patient Name: MITZI MACIAS MRN: [id number] date: 1970 Sex: F Assigned Patient Location: CT Current Patient Location: Accession/Order Number: [id number] Exam Date: 05/12/2024 11:15 Report Date: 05/12/2024 [...] Signed By: 05/12/24 1419 DD/ 1416 TD/TT: [employer] Consulting Architect:TBHRadiology, Radiologist, MD - 05/12/2024 [place] [address] CT Scan Report Signed Patient: MITZI MACIAS MR#: [id number] : 1970 Acct:[id number] Age/Sex: 53 / F ADM Date: 05/12/24 Loc: CT Attending Dr: Gaviota MAYERS Ordering Physician: Gaviota Adames Date of Service: 05/12/24 Procedure(s): CT abdomen pelvis w con Accession Number(s): [id number] cc: Mckayla Blas NP [place] [id number] Patient Name: MITZI MACIAS MRN: [id number] date: 1970 Sex: F Assigned Patient Location: CT Current Patient Location: Accession/Order Number: [id number] Exam Date: 05/12/2024 11:15 Report Date: 05/12/2024 [...] Signed By: 05/12/24 1419 DD/ 15 TD/TT: [employer] Consulting Architect: CARLOS HealthcareRadiology Study observation (narrative)[facility] HealthcareCT ABDOMEN PELVIS W CONOrdered By: Radiologist Radiology on 75-57-0665LAUJ [employer] [facility] Work Phone: MR LUMBAR SPINE WO CONon 40-06-7652[place] [address] Magnetic Resonance Report Signed Patient: MITZI MACIAS MR#: [id number] : 1970 Acct:[id number] Age/Sex: 53 / F ADM Date: 05/12/24 Loc: MRI Attending Dr: Celestina Cochran NP Ordering Physician: Celestina Cochran NP Date of Service: 05/12/24 Procedure(s): MR lumbar spine wo con Accession Number(s): [id number] cc: Mckayla Blas NP; Celestina Cochran NP [place] [address] Patient Name: MITZI MACIAS MRN: [id number] date: 1970 Sex: F Assigned Patient Location: MRI Current Patient Location: CT Accession/Order Number: [id number] Exam Date: 05/12/2024 09:21 Report Date: 05/12/2024 [...] Signed By: 05/12/24 1443 DD/ 1441 TD/TT: [employer] Consulting Architect:TBHRadiology, Radiologist, - 05/12/2024 [place] [address] Magnetic Resonance Report Signed Patient: MITZI MACIAS MR#: [id number] : 1970 Acct:[id number] Age/Sex: 53 / F ADM Date: 05/12/24 Loc: MRI Attending Dr: Celestina Cochran NP Ordering Physician: Celestina Cochran NP Date of Service: 05/12/24 Procedure(s): MR lumbar spine wo con Accession Number(s): [id number] cc: Mckayla Blas NP; Celestina Cochran NP [address] [address] Patient Name: MITZI MACIAS MRN: [facility]:[id number] date: 1970 Sex: F Assigned Patient Location: MRI Current Patient Location: CT Accession/Order Number: [id number] Exam Date: 05/12/2024 09:21 Report Date: 05/12/2024 [...] Signed By: 05/12/24 1443 DD/ 1441 TD/TT: [employer] Consulting Architect: CARLOS HealthcareRadiology Study observation (narrative)[facility] LUMBAR SPINE WO CONOrdered By: Radiologist Radiology on 60-25-6210DCBN Healthcare Work Phone: TB CREATININEon 41-78-8951Ivzknwpgts [Mass/Vol]0.92 mg/dL0.55 - 1.02 mg/dLNOMN HealthcareGFR/1.73 sq M.predicted CKD-EPI (S/P/Bld) [Vol rate/Area]>60>=60 mL/min/1.73m 2NOMS HealthcareTBH EGFR-NON AF [place]UGUESE>60 >=60 mL/min/1.73m 2NOMS HealthcareCLINISYNCNOU MEDICAL [facility] HealthcareSEGMENTAL BLOOD PRESSUREon 37-02-8687[place] [address] Vein Report Signed Patient: MITZI MACIAS MR#: [id number] : 1970 Acct:[id number] Age/Sex: 53 / F ADM Date: 04/24/24 Loc: VC Attending Dr: Comfort Pretty Ordering Physician: Comfort Pretty Date of Service: 04/24/24 Procedure(s): VC SEGMENTAL PRESSURES Accession Number(s): [id number] cc: Mckayla Blas NP; Comfort Pretty [place] [id number] Patient Name: MITZI MACIAS MRN: [id number] date: 1970 Sex: F Assigned Patient Location: Current Patient Location: Accession/Order Number: [id number] Exam Date: 04/24/2024 10:25 Report Date: 04/24/2024 11:20 At the request of: COMFORT PRETTY Procedure: VC SEGMENTAL PRESSURES EXAM: VC SEGMENTAL PRESSURES HISTORY: R09.89 COMPARISON: None. FINDINGS: Segmental pressures presented as follows (right, left) in mmHg. Brachial: 169, 166 Upper thigh: Not obtained Lower thigh: 129, 119 Calf: 124, 106 DPA: 108, 105 CORPORATE QUALITY ASSURANCE MANAGER: 100, 91 1st Toe: 124, 142 [...] Signed By: 04/24/24 1123 DD/ 1120 TD/TT: [employer] Consulting Architect:TBHRadiology, Radiologist, - 04/24/2024 [place] [address] Vein Report Signed Patient: MITZI MACIAS MR#: [id number] : 1970 Acct:[id number] Age/Sex: 53 / F ADM Date: 04/24/24 Loc: VC Attending Dr: Comfort Pretty Ordering Physician: Comfort Pretty Date of Service: 04/24/24 Procedure(s): VC SEGMENTAL PRESSURES Accession Number(s): [id number] cc: Mckayla Blas NP; Comfort Pretty [place] [id number] Patient Name: MITZI MACIAS MRN: [facility]:[id number] date: 1970 Sex: F Assigned Patient Location: Current Patient Location: VC Accession/Order Number: [id number] Exam Date: 04/24/2024 10:25 Report Date: 04/24/2024 11:20 At the request of: COMFORT PRETTY Procedure: VC SEGMENTAL PRESSURES EXAM: VC SEGMENTAL PRESSURES HISTORY: R09.89 COMPARISON: None. FINDINGS: Segmental pressures presented as follows (right, left) in mmHg. Brachial: 169, 166 Upper thigh: Not obtained Lower thigh: 129, 119 Calf: 124, 106 DPA: 108, 105 CORPORATE QUALITY ASSURANCE MANAGER: 100, 91 1st Toe: 124, 142 [...] Signed By: 04/24/24 1123 DD/ 1120 TD/TT: [employer] Consulting Architect: CARLOS HealthcareRadiology Study observation (narrative)NOMS HealthcareSEGMENTAL BLOOD PRESSUREOrdered By: Radiologist Radiology on 65-11-6509ICDH [facility] [employer] [facility] Work Phone: mm TOMOSYNTHESIS SCREENING BIon 23-76-2893[place] [address] Mammography Report Signed Patient: MITZI MACIAS MR#: [id number] : 1970 Acct:[id number] Age/Sex: 53 / F ADM Date: 12/13/23 Loc: MAMMO Attending Dr: Mckayla Blas NP Ordering Physician: Mckayla Blas NP Results: Date of Service: 12/13/23 Follow Up: Procedure(s): MM tomosynthesis screening BI Accession Number(s): [id number] cc: Mckayla Blas NP Patient Name: MITZI MACIAS MR#: [id number] : 1970 Exam Date: 12/13/2023 Ordering Doctor: [...] unknown cancer at age 75. LOCATION: [facility] BREAST COMPOSITION: The breasts are almost [...] Signed By: 12/14/23 1122 DD/ 1121 TD/TT: [employer] Consulting Architect:TBHRadiology, Radiologist, MD - 12/14/2023 [place] [address] Mammography Report Signed Patient: MITZI MACIAS MR#: [id number] : 1970 Acct:[id number] Age/Sex: 53 / F ADM Date: 12/13/23 Loc: MAMMO Attending Dr: Mckayla Blas NP Ordering Physician: Mckayla Blas NP Results: Date of Service: 12/13/23 Follow Up: Procedure(s): MM tomosynthesis screening BI Accession Number(s): [id number] cc: Mckayla Blas NP Patient Name: MITZI MACIAS MR#: [id number] : 1970 Exam Date: 12/13/2023 Ordering Doctor: [...] unknown cancer at age 75. LOCATION: [facility] BREAST COMPOSITION: The breasts are almost [...] Signed By: 12/14/23 1122 DD/ 1121 TD/TT: [employer] Consulting Architect: [place] HealthRadiology Study observation (narrative)[facility] TOMOSYNTHESIS SCREENING BIOrdered By: Radiologist Radiology on 52-69-2235JHFFCarondelet Health Work Phone: bLOOD CULTURE 1on 12-37-2258EHMAZ CULTURE 1 Blood Culture 1 NG5D NO GROWTH AT 5 DAYS.^NO GROWTH AT [address] [facility] HealthcareBLOOD CULTURE 2on 51-34-2493NPVUS CULTURE 2 Blood Culture 2 NG5D NO GROWTH AT 5 DAYS.^NO GROWTH AT 5 DAYS. [facility]ondelet HealthNo Panel Informationon 43-80-0848LSBKLOGGLLWTK HealthcareECG 12-LEADon 76-50-0035Fwa [address] [address] Electrocardiograph Report Signed Patient: MITZI MACIAS MR#: [id number] : 1970 Acct:[id number] Age/Sex: 53 / F ADM Date: 08/31/23 Loc: [place] 214-[address]: Jacqueline Becerra D.O. Ordering Physician: Andra Alcala Date of Service: 08/31/23 Procedure(s): ECG 12 lead Accession Number(s): [id number] cc: [facility] Test Date: 2023-08-31 Pat Name: MITZI MACIAS Department: Room: - Gender: Female License Examiner: : 1970 Requested By: MCKAYLA BLAS Order Number: [id number] Reading MD: LAURI DIOR Measurements Intervals [place] Rate: 102 P: 67 [place]: 144 QRS: 52 QRSD: 72 T: 49 QT: 326 QTc: 385 Interpretive Statements 1120 Sinus tachycardia 4068 Nonspecific Twave abnormality 8102 Low QRS voltage in chest leads 9140 abnormal rhythm ECG Compared to ECG 12/04/2022 21:27:48 Electronically Signed On 09-02-2023 7:31:43 EST by LAURI DIOR Dictated By: Lauri Dior D.O. Signed By: 09/02/23 0732 DD/ 1808 TD/TT: [employer]:TBHRadiology, Radiologist, - 09/02/2023 [place] [address] Electrocardiograph Report Signed Patient: MITZI MACIAS MR#: [id number] : 1970 Acct:[id number] Age/Sex: 53 / F ADM Date: 08/31/23 Loc: [place] 214-[address]: Jacqueline Becerra D.O. 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 Signed By: 09/02/23 0732 DD/ 1808 TD/TT: [employer] Architect: [facility] 12-LEADOrdered By: Radiologist Radiology on [id number] [facility] [employer] [facility] Work Phone: ECG 12-LEADon [id number] Study observation (narrative)[facility]ITALHenna [facility] Cleveland WestCBC AUTO DIFFon [id number] #0.0 103/ulNormal 0.0-0.1The [facility] HospitalComment on above:Performed By: #### CBC #### [facility] [address] [place] [address] Dr. Ashlie HillsBasophils/100 WBC (Bld)0.1 %Critically low0.2-2.0The [facility] HospitalComment on above:Performed By: #### CBC #### [facility] [address] [place] [address] Dr. Ashlie Mcintosh #0.0 103/ulNormal0.0-0.7The [facility] HospitalComment on above: Performed By: #### CBC #### [facility] [address] [place] [address] Dr. Ashlie Grahamosinophils/100 WBC (Bld)0.0 %Critically low0.9-7.0The [facility] HospitalComment on above:Performed By: #### CBC #### [facility] [address] [place] [address] Dr. Ashlie Grahamrythrocyte distribution width (RBC) [Ratio]14.9 %Jeguhd50.0-15.0 The [facility] HospitalComment on above:Performed By: #### CBC #### [facility] [address] [place] [address] Dr. Yilan ChangHematocrit (Bld) [Volume fraction]46.2 %Hyxhra39.0-48.0The [facility] HospitalComment on above:Performed By: #### CBC #### [facility] [address] [place] [address] Dr. Ashlie HillsHemoglobin (Bld) [Mass/Vol]14.7 g/uXAeozqh78.0-16.0The [facility] HospitalComment on above:Performed By: #### CBC #### [facility] [address] [place] [address] Dr. Ashlie HillsIG #0.06 10e3/ulCritically high0.00-0.03The [facility] Comment on above:Performed By: #### CBC #### [facility] [address] [place] [address] Dr. Ashlie HillsIG %0.4 %Normal0.0-0.5The [facility] HospitalComment on above: Performed By: #### CBC #### [facility] [address] [place] [address] Dr. Ashlie Swenson #1.3 103/ulNormal1.2-3.8The [facility] HospitalComment on above:Performed By: #### CBC #### [facility] [address] [place] [address] Dr. Ashlie Jademphocytes/100 WBC (Bld)9.4 %Critically low20.5-60.0The [facility] HospitalComment on above:Performed By: #### CBC #### [facility] [address] [place] [address] Dr. Ashlie HillsMANUAL DIFF REQNONormalThe [facility] HospitalComment on above: Performed By: #### CBC #### [facility] [address] [place] [address] Dr. Ashlie Granger (RBC) [Entitic mass]28.4 udVhkfat82.7-34.0The [facility] HospitalComment on above:Performed By: #### CBC #### [facility] [address] [place] [address] Dr. Ashlie Mckeon (RBC) [Mass/Vol]31.8 g/mTFbwcqw02.9-35.2The [facility] HospitalComment on above:Performed By: #### CBC #### [facility] [address] [address] [address] Ashlie MckeonV (RBC) [Entitic vol]89.4 jOMisrtw93.0-99.0The [facility] HospitalComment on above:Performed By: #### CBC #### [facility] [address] [address] [address] Ashlie Killian #0.5 103/ulNormal0.3-0.8The [facility] HospitalComment on above:Performed By: #### CBC #### [facility] [address] [address] [address] Ashlie Palominoocytes/100 WBC (Bld)3.4 %Normal1.7-12.0[facility] Comment on above:Performed By: #### CBC #### [facility] [address] [address] [address] Ashlie Olsen #11.8 103/ulCritically high1.4-6.5The [facility] Comment on above:Performed By: #### CBC #### [facility] [address] [place] [address] Dr. Ashlie Steinutrophils/100 WBC (Bld)86.7 %Critically high43.0-75.0The [facility] HospitalComment on above:Performed By: #### CBC #### [facility] [address] [address] [address] Ashlie Lantigualet mean volume (Bld) [Entitic vol]12.6 fLNormal9.5-13.5The [facility] HospitalComment on above:Performed By: #### CBC #### [facility] [address] [address] [address] Ashlie HillsPLT133 103/ulCritically mvl987-730Idr [facility] HospitalComment on above:Performed By: #### CBC #### [facility] [address] [address] [address] Ashlie HillsRBC5.17 106/ulNormal4.20-5.40The [facility] HospitalComment on above:Performed By: #### CBC #### [facility] [address] [place] [address] Dr. Ashlie HillsWBC13.6 103/ulCritically high4.0-11.0The [facility] HospitalComment on above:Performed By: #### CBC #### [facility] [address] [place] [address] Dr. Ashlie HillsMAGNESIUMon 61-97-8508Egqyxwnhg [Mass/Vol]2.2 mg/dLNormal1.8-2.4 The [facility] HospitalComcorewell health [facility] on above:Performed By: #### INFLUAB #### [facility] [address] [place] [address] Dr. Ashlie HillsPOINT OF CARE GLUCOSEon 93-65-3747Apeouch [Mass/Vol]340 mg/dL Critically qunu63-796Nht [facility] HospitalComment on above:Performed By: #### POCGLUC #### [facility] [address] [place] [address] Dr. Ashlie HillsGlucose [Mass/Vol]276 mg/dLCritically nayb26-878Xtp [facility] HospitalComment on above:Performed By: #### CBC #### [facility] [address] [place] [address] Dr. Ashlie HillsGlucose [Mass/Vol]333 mg/dLCritically qkus66-714Qne [facility] HospitalComment on above:Performed By: #### CBC #### [facility] [address] [place] [address] Dr. Ashlie HillsPROF CHEM 8 (BAS METB)on 97-43-3349Edorp gap [Moles/Vol]10.9 mmol/LNormalLicking Memorial HospitalComment on above:Performed By: #### INFLUAB #### [facility] [address] [place] [address] Dr. Ashlie HillsCalcium [Mass/Vol]9.3 mg/dLNormal8.5-10.1[facility] Comment on above:Performed By: #### INFLUAB #### [facility] [address] [address] [address] Ashlie HillsChloride [Moles/Vol]103 mmol/EPqgqai55-071Lrl [facility] Comment on above:Performed By: #### INFLUAB #### [facility] [address] [address] [address] Ashlie HillsCO2 [Moles/Vol]31.2 mmol/NMxkuro95.0-32.0[facility] Comment on above:Performed By: #### INFLUAB #### [facility] [address] [place] [address] Dr. Ashlie HillsCreatinine [Mass/Vol]0.96 mg/dLNormal0.55-1.02The [facility] HospitalComment on above:Performed By: #### INFLUAB #### [facility] [address] [place] [address] Dr. Ashlie GrahamGFR-AF PORTUGUESE>60Normal>=60The [facility] HospitalComment on above:Performed By: #### INFLUAB #### [facility] [address] [place] [address] Dr. Ashlie GrahamGFR-NON AF PORTUGUESE>60Normal>=60The [facility] HospitalComment on above:Performed By: #### INFLUAB #### [facility] [address] [address] [address] Ashlie HillsGlucose [Mass/Vol]288 mg/dLCritically vnhj44-021Zhr [facility] HospitalComment on above:Performed By: #### INFLUAB #### [facility] [address] [address] [address] Ashlie HillsPotassium [Moles/Vol]5.1 mmol/LNormal3.5-5.1[facility] Comment on above:Performed By: #### INFLUAB #### [facility] [address] [place] [address] Dr. Ashlie HillsSodium [Moles/Vol]140 mmol/EXhhqzd795-970AhrLicking Memorial Hospital Comment on above:Performed By: #### INFLUAB #### [facility] [address] [place] [address] Dr. Ashlie Jones nitrogen [Mass/Vol]30.0 mg/dLCritically high7.0-18.0The [facility] HospitalComment on above:Performed By: #### INFLUAB #### [facility] [address] [place] [address] Dr. Ashlie Jones nitrogen/Creatinine [Mass ratio]31.2 mg/mgNormalThe Warren HospitalComment on above:Performed By: #### INFLUAB #### [facility] [address] [place] [address] Dr. Ashlie Chinchilla AUTO DIFFon 68-20-9832CNYQ #0.0 103/ulNormal0.0-0.1The [facility] HospitalComment on above:Performed By: #### CBC #### [facility] [address] [place] [address] Dr. Ashlie HillsBasophils/100 WBC (Bld)0.4 %Normal0.2-2.0[facility] Comment on above:Performed By: #### CBC #### [facility] [address] [place] [address] Dr. Ashlie Mcintosh #0.0 103/ulNormal0.0-0.7The [facility] HospitalComment on above: Performed By: #### CBC #### [facility] [address] [place] [address] Dr. Ashlie Grahamosinophils/100 WBC (Bld)0.0 %Critically low0.9-7.0The [facility] HospitalComment on above:Performed By: #### CBC #### [facility] [address] [place] [address] Dr. Ashlie Grahamrythrocyte distribution width (RBC) [Ratio]14.8 %Xzwmzu92.0-15.0 The [facility] HospitalComment on above:Performed By: #### CBC #### [facility] [address] [place] [address] Dr. Ashlie HillsHematocrit (Bld) [Volume fraction]49.9 %Critically high36.0-48.0 The [facility] HospitalComment on above:Performed By: #### CBC #### [facility] [address] [place] [address] Dr. Ashlie HillsHemoglobin (Bld) [Mass/Vol]15.7 g/iLEadges08.0-16.0The [facility] HospitalComment on above:Performed By: #### CBC #### [facility] [address] [place] [address] Dr. Ashlie Hunter #0.04 10e3/ulCritically high0.00-0.03The [facility] Comment on above:Performed By: #### CBC #### [facility] [address] [place] [address] Dr. Ashlie Hunter %0.5 %Normal0.0-0.5The [facility] HospitalComment on above: Performed By: #### CBC #### [facility] [address] [place] [address] Dr. Ashlie Swenson #1.1 103/ulCritically low1.2-3.8The [facility] Comment on above:Performed By: #### CBC #### [facility] [address] [place] [address] Dr. Ashlie Dsouzahocytes/100 WBC (Bld)12.7 %Critically low20.5-60.0The [facility] HospitalComment on above:Performed By: #### CBC #### [facility] [address] [place] [address] Dr. Ashlie GhoshUAL DIFF REQNONormalThe [facility] HospitalComment on above: Performed By: #### CBC #### [facility] [address] [place] [address] Dr. Ashlie Granger (RBC) [Entitic mass]28.1 sjNrztiq06.7-34.0The [facility] HospitalComment on above:Performed By: #### CBC #### [facility] [address] [place] [address] Dr. Ashlie Mckeon (RBC) [Mass/Vol]31.5 g/lLOnjstj83.9-35.2The [facility] HospitalComment on above:Performed By: #### CBC #### [facility] [address] [address] [address] Ashlie Mckeon (RBC) [Entitic vol]89.3 oRZjzknu82.0-99.0The [facility] HospitalComment on above:Performed By: #### CBC #### [facility] [address] [place] [address] Dr. Ashlie Killian #0.1 103/ulCritically low0.3-0.8The [facility] HospitalComment on above:Performed By: #### CBC #### [facility] [address] [place] [address] Dr. Ashlie Palominoocytes/100 WBC (Bld)1.3 %Critically low1.7-12.0The [facility] HospitalComment on above:Performed By: #### CBC #### [facility] [address] [place] [address] Dr. Ashlie Olsen #7.2 103/ulCritically high1.4-6.5The [facility] Comment on above:Performed By: #### CBC #### [facility] [address] [place] [address] Dr. Ashlie Steinutrophils/100 WBC (Bld)85.1 %Critically high43.0-75.0The [facility] HospitalComment on above:Performed By: #### CBC #### [facility] [address] [place] [address] Dr. Ashlie Lantigualet mean volume (Bld) [Entitic vol]12.2 fLNormal9.5-13.5The [facility] HospitalComment on above:Performed By: #### CBC #### [facility] [address] [place] [address] Dr. Ashlie HillsPLT116 103/ulCritically pal847-528Eaw [facility] HospitalComment on above:Performed By: #### CBC #### [facility] [address] [address] [address] Ashlie HillsRBC5.59 106/ulCritically high4.20-5.40The [facility] Comment on above:Performed By: #### CBC #### [facility] [address] [address] [address] Ashlie HillsWBC8.5 103/ulNormal4.0-11.0The [facility] HospitalComment on above: Performed By: #### CBC #### [facility] [address] [address] [address] Ashlie Harrison CHEST WO W CONon [id number] CHEST WO W CONEXAMINATION: CTA CHEST WO [...] Electronically authenticated by: HATTIE GOFF Date: 2022-12-05 01:[address] [place], [place] [address]ue HospitalMAGNESIUMon 98-66-8686Fuqbwvobo [Mass/Vol]2.1 mg/dLNormal 1.8-2.4The [facility] HospitalComment on above:Performed By: #### POCGLUC #### [facility] [address] [address] [address] Ashlie HillsPOINT OF CARE GLUCOSEon 44-15-6148Zuwqqqm [Mass/Vol]293 mg/dL Critically dqzm89-741CmoLicking Memorial HospitalComment on above:Performed By: #### POCGLUC #### [facility] [address] [address] [address] Ashlie HillsGlucose [Mass/Vol]269 mg/dLCritically fbri21-582Aif [facility] HospitalComment on above:Performed By: #### POCGLUC #### [facility] [address] [place] [address] Dr. Ashlie HillsGlucose [Mass/Vol]223 mg/dLCritically bsuv56-995Zef [facility] HospitalComment on above:Performed By: #### CVDAGS #### [facility] [address] [address] [address] Ashlie HillsPROF CHEM 8 (BAS METB)on 06-99-3027Saicg gap [Moles/Vol]11.6 mmol/LNormalLicking Memorial HospitalComment on above:Performed By: #### POCGLUC #### [facility] [address] [address] [address] Ashlie HillsCalcium [Mass/Vol]9.2 mg/dLNormal8.5-10.1[facility] Comment on above:Performed By: #### POCGLUC #### [facility] [address] [address] [address] Ashlie HillsChloride [Moles/Vol]102 mmol/APwyvme69-762BqlLicking Memorial Hospital Comment on above:Performed By: #### POCGLUC #### [facility] [address] [place] [address] Dr. Ashlie HillsCO2 [Moles/Vol]28.7 mmol/ZCnirxe41.0-32.0[facility] Comment on above:Performed By: #### POCGLUC #### [facility] [address] [address] [address] Ashlie HillsCreatinine [Mass/Vol]1.04 mg/dLCritically high0.55-1.02[facility] HospitalComment on above:Performed By: #### POCGLUC #### [facility] [address] [address] [address] Ashlie GrahamGFR-AF PORTUGUESE>60Normal>=60The [facility] HospitalComment on above:Performed By: #### POCGLUC #### [facility] [address] [address] [address] Ashlie GrahamGFR-NON AF DKVRCYHC40 mL/min/1.41e2Bwqncmkxbu low>=60The [facility] HospitalComment on above:Performed By: #### POCGLUC #### [facility] [address] [address] [address] Ashlie HillsGlucose [Mass/Vol]231 mg/dLCritically mvjn93-491Ooc [facility] HospitalComment on above:Performed By: #### POCGLUC #### [facility] [address] [address] [address] Ashlie HillsPotassium [Moles/Vol]4.3 mmol/LNormal3.5-5.1[facility] Comment on above:Performed By: #### POCGLUC #### [facility] [address] [address] [address] Ashlie HillsSodium [Moles/Vol]138 mmol/VLqlhuw777-082CveLicking Memorial Hospital Comment on above:Performed By: #### POCGLUC #### [facility] [address] [address] [address] Ashlie HillsUrea nitrogen [Mass/Vol]17.0 mg/dLNormal7.0-18.0The [facility] HospitalComment on above:Performed By: #### POCGLUC #### [facility] [address] [address] [address] Ashlie HillsUrea nitrogen/Creatinine [Mass ratio]16.3 mg/mgNormalThe [facility] HospitalComment on above:Performed By: #### POCGLUC #### [facility] [address] [address] [address] Ashlie HillsRESPIRATORY PANEL PLUSon 24-76-8029DsjerwklgwSla detectedNormal NOT DETECTEDThe [facility] HospitalComment on above:Performed By: #### CVDAGS #### [facility] [address] [address] [address] Ashlie Gandhi ParapertusisNot detectedNormalNOT DETECTEDThe [facility] HospitalComment on above:Performed By: #### CVDAGS #### [facility] [address] [address] [address] Ashlie Gandhi PertussisNot detectedNormalNOT DETECTEDThe [facility] on above:Performed By: #### CVDAGS #### [facility] [address] [address] [address] Ashlie HillsChlamydia PneumoniaeNot detectedNormalNOT DETECTEDThe [facility] HospitalComment on above:Performed By: #### CVDAGS #### [facility] [address] [address] [address] Ashlie HillsCoronavirus 229ENot detectedNormalNOT DETECTEDThe [facility] HospitalComcorewell health [facility] on above:Performed By: #### CVDAGS #### [facility] [address] [address] [address] Ashlie HillsCoronavirus WFY0Fpy detectedNormalNOT DETECTEDThe [facility] HospitalComment on above:Performed By: #### CVDAGS #### [facility] [address] [address] [address] Ashlie HillsCoronavirus JE74Yul detectedNormalNOT DETECTEDThe [facility] HospitalComment on above:Performed By: #### CVDAGS #### [facility] [address] [address] [address] Ashlie HillsCoronavirus MZ84Aoj detectedNormalNOT DETECTEDThe [facility] HospitalComment on above:Performed By: #### CVDAGS #### [facility] [address] [address] [address] Ashlie Centeno H1Not detectedNormalNOT DETECTEDThe [facility] Comment on above:Performed By: #### CVDAGS #### [facility] [address] [address] [address] Ashlie Centeno H1 2009Not detectedNormalNOT DETECTEDThe [facility] HospitalComment on above:Performed By: #### CVDAGS #### [facility] [address] [address] [address] Ashlie Centeno H3Not detectedNormalNOT DETECTEDThe [facility] Comment on above:Performed By: #### CVDAGS #### [facility] [address] [address] [address] Ashlie Lockhart BNot detectedNormalNOT DETECTEDLicking Memorial Hospital Comment on above:Performed By: #### CVDAGS #### [facility] [address] [address] [address] Ashlie ChávezapneumovirusNot detectedNormalNOT DETECTEDThe [facility] HospitalComment on above:Performed By: #### CVDAGS #### [facility] [address] [address] [address] Ashlie Jimenez. PneumoniaeNot detectedNormalNOT DETECTEDThe [facility] HospitalComcorewell health [facility] on above:Performed By: #### CVDAGS #### [facility] [address] [address] [address] Ashlie Mendieta 1Not detectedNormalNOT DETECTEDThe [facility] HospitalComment on above:Performed By: #### CVDAGS #### [facility] [address] [address] [address] Ashlie Mendieta 2Not detectedNormalNOT DETECTEDThe [facility] HospitalComcorewell health [facility] on above:Performed By: #### CVDAGS #### [facility] [address] [address] [address] Ashlie Mendieta 3DetectedAbnormalNOT DETECTEDThe [facility] Comment on above:Performed By: #### CVDAGS #### [facility] [address] [place] [address] Dr. Ashlie Harringtonfluenza 4Not detectedNormalNOT DETECTEDThe [facility] HospitalComment on above:Performed By: #### CVDAGS #### [facility] [address] [place] [address] Dr. Ashlie HillsRhino/EnterovirusNot detectedNormalNOT DETECTEDThe [facility] HospitalComment on above:Performed By: #### CVDAGS #### [facility] [address] [place] [address] Dr. Ashlie Gallagher Header 1RESPIRATORY PANEL: VIRUSESSt. [facility] Comment on above:Performed By: #### CVDAGS #### [facility] [address] [place] [address] Dr. Ashlie Gallagher Header 2RESPIRATORY PANEL: BACTERIASt. Charles HospitalComment on above:Performed By: #### CVDAGS #### [facility] [address] [place] [address] Dr. Ashlie TerryVNot detectedNormalNOT DETECTEDThe [facility] HospitalComcorewell health [facility] on above:Performed By: #### CVDAGS #### [facility] [address] [place] [address] Dr. Ashlie Finney-CoV-2 (COVID-19) RNA MADDY+probe Ql (Unsp spec)Not detected NormalNOT DETECTEDThe [facility] Systemment on above:Performed By: #### CVDAGS #### [facility] [address] [place] [address] Dr. Ashlie HillsXR CHEST 1 Von 90-21-9324ZR CHEST 1 VEXAMINATION: XR CHEST 1 V HISTORY: Shortness of breath COMPARISON: Chest x-ray 08/09/2021 TECHNIQUE: Portable chest FINDINGS: The lung parenchyma is free of consolidation or infiltrate. No pneumothorax or pleural effusion. The cardiac, mediastinal and hilar contours are normal. The visualized osseous structures exhibit no gross abnormality. IMPRESSION: No acute cardiopulmonary abnormality. Electronically authenticated by: MARYANNE POWER Date: 2022-12-04 22:23NoThe University of Toledo Medical CenterBLOOD GASES BTYon [id number] [facility] HospitalComment on above:Performed By: #### CBC #### [facility] [address] [address] [address] Ashlie Duran TESTPositiveSt. Charles HospitalComcorewell health [facility] on above: Performed By: #### CBC #### [facility] [address] [address] [address] Ashlie Crenshaw excess Calc (Bld) [Moles/Vol]5.4 mmol/LCritically high -2.0-2.0[facility] on above:Performed By: #### CBC #### [facility] [address] [address] [address] Ashlie Cevallos [facility] on above: Performed By: #### CBC #### [facility] [address] [address] [address] Ashlie HillsCPJ.W. [facility] on above:Performed By: #### CBC #### [facility] [address] [address] [address] Ashlie RodDszzpANN4VsxcogSkfOhio State Harding Hospital on above:Performed By: #### CBC #### [facility] [address] [address] [address] Ashlie BahenaO3 (Bld) [Moles/Vol]30.8 mmol/LCritically high22.0-26.0[facility] on above:Performed By: #### CBC #### [facility] [address] [address] [address] Ashlie HillsLPMNormalLicking Memorial HospitalComcorewell health [facility] on above:Performed By: #### CBC #### [facility] [address] [address] [address] Ashlie HackettChildren's Hospital for RehabilitationComcorewell health [facility] on above: Performed By: #### CBC #### [facility] [address] [address] [address] Ashlie HillsOxygen (Bld) [Partial pressure]46.3 mm[Hg]Critically low 80.0-100.0The [facility] HospitalComment on above:Performed By: #### CBC #### [facility] [address] [place] [address] Dr. Ashlie HillsOxygen saturation in Blood83.9 %Critically low95.0-100.0[facility] on above:Performed By: #### CBC #### [facility] [address] [place] [address] Dr. Ashlie HillsPCO254.2 mmHgCritically high35.0-45.0The [facility] HospitalComcorewell health [facility] on above:Performed By: #### CBC #### [facility] [address] [place] [address] Dr. Ashlie HillsCentervilleComcorewell health [facility] on above:Performed By: #### CBC #### [facility] [address] [place] [address] Dr. Ashlie Knapp (Bld)7.363 [pH]Normal7.350-7.450[facility] on above:Performed By: #### CBC #### [facility] [address] [place] [address] Dr. Ashlie VerasClermont County Hospital on above:Performed By: #### CBC #### [facility] [address] [place] [address] Dr. Ashlie HillsAccess Hospital DaytonComcorewell health [facility] on above:Performed By: #### CBC #### [facility] [address] [place] [address] Dr. Ashlie Avendano [facility] HospitalComcorewell [facility] on above: Performed By: #### CBC #### [facility] [address] [place] [address] Dr. Ashlie GoldUniversity Hospitals Lake West Medical CenterComcorewell [facility] on above:Performed By: #### CBC #### [facility] [address] [place] [address] Dr. Ashlie HillsDiley Ridge Medical CenterComcorewell health [facility] on above:Performed By: #### CBC #### [facility] [address] [place] [address] Dr. Ashlie DoeNormalThe [facility] HospitalComment on above:Performed By: #### CBC #### [facility] [address] [place] [address] Dr. Ashlie Perry [id number] peptide B (Bld) [Mass/Vol]76.0 pg/mL Normal<=900.0The [facility] HospitalComment on above:Performed By: #### POCGLUC #### [facility] [address] [place] [address] Dr. Ashlie Chinchilla AUTO DIFFon [id number] #0.1 103/ulNormal0.0-0.1The [facility] HospitalComment on above:Performed By: #### CBC #### [facility] [address] [place] [address] Dr. Ashlie HillsBasophils/100 WBC (Bld)0.6 %Normal0.2-2.0[facility] Comment on above:Performed By: #### CBC #### [facility] [address] [place] [address] Dr. Ashlie Mcintosh #0.2 103/ulNormal0.0-0.7The [facility] HospitalComcorewell health [facility] on above: Performed By: #### CBC #### [facility] [address] [place] [address] Dr. Ashlie Grahamosinophils/100 WBC (Bld)1.9 %Normal0.9-7.0[facility] Comment on above:Performed By: #### CBC #### [facility] [address] [place] [address] Dr. Ashlie Grahamrythrocyte distribution width (RBC) [Ratio]15.0 %Hfmvmf85.0-15.0 [facility] HospitalComment on above:Performed By: #### CBC #### [facility] [address] [place] [address] Dr. Ashlie HillsHematocrit (Bld) [Volume fraction]49.1 %Critically high36.0-48.0 The [facility] HospitalComment on above:Performed By: #### CBC #### [facility] [address] [place] [address] Dr. Ashlie HillsHemoglobin (Bld) [Mass/Vol]15.6 g/nCQlbvxc13.0-16.0The [facility] HospitalComment on above:Performed By: #### CBC #### [facility] [address] [place] [address] Dr. Ashlie Hunter #0.02 10e3/ulNormal0.00-0.03The [facility] HospitalComment on above:Performed By: #### CBC #### [facility] [address] [place] [address] Dr. Ashlie Hunter %0.2 %Normal0.0-0.5The [facility] HospitalComment on above: Performed By: #### CBC #### [facility] [address] [place] [address] Dr. Ashlie Swenson #2.8 103/ulNormal1.2-3.8The [facility] HospitalComment on above:Performed By: #### CBC #### [facility] [address] [place] [address] Dr. Ashlie Dsouzahocytes/100 WBC (Bld)29.9 %Snpsow58.5-60.0The [facility] HospitalComment on above:Performed By: #### CBC #### [facility] [address] [place] [address] Dr. sAhlie GhoshUAL DIFF REQNONormalThe [facility] HospitalComment on above: Performed By: #### CBC #### [facility] [address] [place] [address] Dr. Ashlie Granger (RBC) [Entitic mass]28.5 usQkljsj30.7-34.0The [facility] HospitalComment on above:Performed By: #### CBC #### [facility] [address] [place] [address] Dr. Ashlie Mckeon (RBC) [Mass/Vol]31.8 g/yBCmygas27.9-35.2The [facility] HospitalComment on above:Performed By: #### CBC #### [facility] [address] [place] [address] Dr. Ashlie MckeonV (RBC) [Entitic vol]89.8 fIIgdlag63.0-99.0The [facility] HospitalComment on above:Performed By: #### CBC #### [facility] [address] [place] [address] Dr. Ashlie Killian #1.0 103/ulCritically high0.3-0.8The [facility] Comment on above:Performed By: #### CBC #### [facility] [address] [place] [address] Dr. Ashlie Palominoocytes/100 WBC (Bld)10.6 %Normal1.7-12.0[facility] Comment on above:Performed By: #### CBC #### [facility] [address] [place] [address] Dr. Ashlie Olsen #5.3 103/ulNormal1.4-6.5The [facility] HospitalComment on above:Performed By: #### CBC #### [facility] [address] [place] [address] Dr. Ashlie Steinutrophils/100 WBC (Bld)56.8 %Zfoyqw33.0-75.0The [facility] HospitalComment on above:Performed By: #### CBC #### [facility] [address] [place] [address] Dr. Ashlie Lantigualet mean volume (Bld) [Entitic vol]12.5 fLNormal9.5-13.5The [facility] HospitalComment on above:Performed By: #### CBC #### [facility] [address] [place] [address] Dr. Ashlie HillsPLT109 103/ulCritically udo519-163Hiz [facility] HospitalComment on above:Performed By: #### CBC #### [facility] [address] [place] [address] Dr. Ashlie HillsRBC5.47 106/ulCritically high4.20-5.40The [facility] Comment on above:Performed By: #### CBC #### [facility] [address] [place] [address] Dr. Ashlie HillsWBC9.4 103/ulNormal4.0-11.0The [facility] HospitalComment on above: Performed By: #### CBC #### [facility] [address] [place] [address] Dr. Ashlie LlanosF 14(COMP METB)on [id number] [Mass/Vol]2.9 g/dL Critically low3.4-5.0The [facility] HospitalComment on above:Performed By: #### CBC #### [facility] [address] [place] [address] Dr. Ashlie HillsAlbumin/Globulin [Mass ratio]0.6 {ratio}NormalThe [facility] HospitalComment on above:Performed By: #### CBC #### [facility] [address] [place] [address] Dr. Ashlie Gonzalez [Catalytic activity/Vol]64 U/ELclgcr15-773Ain [facility] HospitalComment on above:Performed By: #### CBC #### [facility] [address] [place] [address] Dr. Ashlie Chambers [Catalytic activity/Vol]16 U/STmukaw86-90Euo [facility] HospitalComment on above:Performed By: #### CBC #### [facility] [address] [place] [address] Dr. Ashlie Arce gap [Moles/Vol]9.6 mmol/LNormalThe [facility] HospitalComment on above:Performed By: #### CBC #### [facility] [address] [place] [address] Dr. Ashlie Tiwari [Catalytic activity/Vol]16 U/WBvmrtg02-08Zgo [facility] HospitalComment on above:Performed By: #### CBC #### [facility] [address] [place] [address] Dr. Ashlie HillsBilirubin [Mass/Vol]0.5 mg/dLNormal0.2-1.0The [facility] Comment on above:Performed By: #### CBC #### [facility] [address] [place] [address] Dr. Ashlie HillsCalcium [Mass/Vol]8.7 mg/dLNormal8.5-10.1[facility] Comment on above:Performed By: #### CBC #### [facility] [address] [place] [address] Dr. Ashlie HillsChloride [Moles/Vol]103 mmol/FMcfddg73-101Lpk [facility] Comment on above:Performed By: #### CBC #### [facility] [address] [place] [address] Dr. Ashlie HillsCO2 [Moles/Vol]30.7 mmol/YLilcfv96.0-32.0[facility] Comment on above:Performed By: #### CBC #### [facility] [address] [place] [address] Dr. Ashlie HillsCreatinine [Mass/Vol]0.96 mg/dLNormal0.55-1.02The [facility] HospitalComment on above:Performed By: #### CBC #### [facility] [address] [place] [address] Dr. Ashlie GrahamGFR-AF PORTUGUESE>60Normal>=60The [facility] HospitalComment on above:Performed By: #### CBC #### [facility] [address] [place] [address] Dr. Ashlie Delaney-NON AF PORTUGUESE>60Normal>=60The [facility] HospitalComment on above:Performed By: #### CBC #### [facility] [address] [place] [address] Dr. Ashlie HillsGlobulin (S) [Mass/Vol]4.7 g/dLNormalThe [facility] HospitalComment on above:Performed By: #### CBC #### [facility] [address] [place] [address] Dr. Ashlie HillsGlucose [Mass/Vol]170 mg/dLCritically jvoo83-040Amy [facility] HospitalComment on above:Performed By: #### CBC #### [facility] [address] [address] [address] Ashlie HillsPotassium [Moles/Vol]4.3 mmol/LNormal3.5-5.1The [facility] Comment on above:Performed By: #### CBC #### [facility] [address] [address] [address] Ashlie HillsProtein [Mass/Vol]7.6 g/dLNormal6.4-8.2[facility] Comment on above:Performed By: #### CBC #### [facility] [address] [address] [address] Ashlie HillsSodium [Moles/Vol]139 mmol/ICxvjvf695-090Fcx [facility] Comment on above:Performed By: #### CBC #### [facility] [address] [address] [address] Ashlie HillsUrea nitrogen [Mass/Vol]16.0 mg/dLNormal7.0-18.0The [facility] HospitalComment on above:Performed By: #### CBC #### [facility] [address] [address] [address] Ashlie Jones nitrogen/Creatinine [Mass ratio]16.7 mg/mgNormalThe [facility] HospitalComment on above:Performed By: #### CBC #### [facility] [address] [address] [address] Ashlie KirbyMPTOMATIC COVID-19 ANTIGENon [id number] StatementSEE BELOW NormalThe [facility] HospitalComment on above:Result Comment: This test has [...] is revoked sooner.Performed By: #### CVDAGS #### [facility] [address] [place] [address] Dr. Ashlie Finney-CoV-2 (COVID-19) RNA MADDY+probe Ql (Unsp spec)NegativeNormal NEGATIVEThe [facility] HospitalComment on above:Performed By: #### CVDAGS #### [facility] [address] [place] [address] Dr. Ashlie Alvarado, [facility] SENSITIVITYon [id number] pg/mLNormal 4.0-51.3The [facility] HospitalComment on above:Result Comment: CUT-OFF POINTS HAVE BEEN ESTABLISHED BASED ON THE FOURTH UNIVERSAL DEFINITIONS OF MYOCARDIAL INFARCTION. THE UPPER REFERENCE LIMIT (URL) OF TROPONIN, DEFINED THE 99TH PERCENTILE OF cTnI DISTRIBUTION IN A REFERENCE POPULATION, HAS BEEN CONFIRMED THE DECISION THRESHOLD FOR AK DIAGNOSIS.Performed By: #### POCGLUC #### [facility] [address] [place] [address] Dr. Ashlei MarshallALBUMIN, RAND URon [id number] mg/dLCritically high <=30.0The [facility] HospitalComment on above:Performed By: #### CVDAGS #### [facility] [address] [place] [address] Dr. Ashlie Vaughn RANDOM W/MICROSCOPICon [id number] SEENNormalNONE SEENLicking Memorial HospitalComment on above:Performed By: #### CVDAGS #### [facility] [address] [place] [address] Dr. Ashlie HillsBilirubin Ql (U)NegativeNormalNEGATIVEThe [facility] Comment on above:Performed By: #### CVDAGS #### [facility] [address] [place] [address] Dr. Ashlie SchultzSEENAbnormalNONE SEENThe [facility] HospitalComment on above: Performed By: #### CVDAGS #### [facility] [address] [address] [address] Ashlie HillsClarity (U)CLEARNormalCLEARLicking Memorial HospitalComcorewell health [facility] on above: Performed By: #### CVDAGS #### [facility] [address] [address] [address] Ashlie Roberts (U)YELLOWNormalYELLOWLicking Memorial HospitalComment on above: Performed By: #### CVDAGS #### [facility] [address] [address] [address] Ashlie HillsCrystals LM Nom (Urine sed)NONE SEENNormalNONE SEENLicking Memorial HospitalComcorewell health [facility] on above:Performed By: #### CVDAGS #### [facility] [address] [place] [address] Dr. Dailey ChangEpithelial cells LM Ql (Urine sed)MODERATEAbnormalNONE SEEN /RARE The [facility] HospitalComcorewell [facility] on above:Performed By: #### CVDAGS #### [facility] [address] [place] [address] Dr. Ashlie HillsGlucose Ql (U)NegativeNormalNEGATIVELicking Memorial HospitalComcorewell [facility] on above:Performed By: #### CVDAGS #### [facility] [address] [place] [address] Dr. Ashlie HillsHemoglobin Ql (U)TRACE-INTACTAbnormalNEGATIVELicking Memorial HospitalComcorewell [facility] on above:Performed By: #### CVDAGS #### [facility] [address] [place] [address] Dr. Ashlie HillsKetones Ql (U)NegativeNormalNEGATIVELicking Memorial HospitalComcorewell health [facility] on above:Performed By: #### CVDAGS #### [facility] [address] [place] [address] Dr. Ashlie HillsLEUKOCYTESNegativeNormalNEGATIVELicking Memorial HospitalComcorewell [facility] on above:Performed By: #### CVDAGS #### [facility] [address] [place] [address] Dr. Ashlie McphersonUSRODRIGUEZE SEENNormalNONE SEENLicking Memorial HospitalComment on above:Performed By: #### CVDAGS #### [facility] [address] [place] [address] Dr. Ashlie Soares Ql (U)NegativeNormalNEGATIVEThe [facility] HospitalComment on above:Performed By: #### CVDAGS #### [facility] [address] [place] [address] Dr. Ashlie HillspH (U)5.0 [pH]Normal5-9The [facility] HospitalComment on above: Performed By: #### CVDAGS #### [facility] [address] [place] [address] Dr. Ashlie PruettOcssdXIC8-5Fnqvtw9-1Ytf [facility] HospitalComment on above:Performed By: #### CVDAGS #### [facility] [address] [place] [address] Dr. Ashlie HillsSPEC GRAVITY1.274Wgorgmji0.005-<=1.025The [facility] Comment on above:Performed By: #### CVDAGS #### [facility] [address] [place] [address] Dr. Ashlie Vaughn ZOTORWN896 mg/dlAbnormalNEGATIVE/ TRACEThe [facility] Comment on above:Performed By: #### CVDAGS #### [facility] [address] [place] [address] Dr. Ashlie Metzbilkrystynagen Qn (U)0.2 {Little'U}/dLNormal0.2 - 1.0The [facility] HospitalComment on above:Performed By: #### CVDAGS #### [facility] [address] [place] [address] Dr. Ashlie HillsWBCNONE SEENNormalNONE SEENLicking Memorial HospitalComment on above: Performed By: #### CVDAGS #### [facility] [address] [place] [address] Dr. Ashlie Chinchilla AUTO DIFFon [id number] #0.0 103/ulNormal0.0-0.1The [facility] HospitalComment on above:Performed By: #### CBC #### [facility] [address] [place] [address] Dr. Ashlie HillsBasophils/100 WBC (Bld)0.3 %Normal0.2-2.0[facility] Comment on above:Performed By: #### CBC #### [facility] [address] [place] [address] Dr. Ashlie Mcintosh #0.4 103/ulNormal0.0-0.7The [facility] HospitalComment on above: Performed By: #### CBC #### [facility] [address] [place] [address] Dr. Ashlie Grahamosinophils/100 WBC (Bld)3.0 %Normal0.9-7.0[facility] Comment on above:Performed By: #### CBC #### [facility] [address] [place] [address] Dr. Ashlie Grahamrythrocyte distribution width (RBC) [Ratio]15.3 %Critically high 11.0-15.0[facility] HospitalComment on above:Performed By: #### CBC #### [facility] [address] [place] [address] Dr. Ashlie HillsHematocrit (Bld) [Volume fraction]52.4 %Critically high36.0-48.0 The [facility] HospitalComment on above:Performed By: #### CBC #### [facility] [address] [place] [address] Dr. Ashlie HillsHemoglobin (Bld) [Mass/Vol]16.8 g/dLCritically high12.0-16.0[facility] HospitalComment on above:Performed By: #### CBC #### [facility] [address] [place] [address] Dr. Ashlie Hunter #0.04 10e3/ulCritically high0.00-0.03The [facility] Comment on above:Performed By: #### CBC #### [facility] [address] [place] [address] Dr. Ashlie Hunter %0.3 %Normal0.0-0.5The [facility] HospitalComment on above: Performed By: #### CBC #### [facility] [address] [place] [address] Dr. Ashlie Swenson #4.5 103/ulCritically high1.2-3.8The [facility] Comment on above:Performed By: #### CBC #### [facility] [address] [place] [address] Dr. Ashlie Dsouzahocytes/100 WBC (Bld)33.2 %Aauope84.5-60.0The [facility] HospitalComment on above:Performed By: #### CBC #### [facility] [address] [place] [address] Dr. Ashlie GhoshUAL DIFF REQNONormalThe [facility] HospitalComment on above: Performed By: #### CBC #### [facility] [address] [place] [address] Dr. Ashlie Granger (RBC) [Entitic mass]28.0 pkKdwlgq65.7-34.0The [facility] HospitalComment on above:Performed By: #### CBC #### [facility] [address] [place] [address] Dr. Ashlie Mckeon (RBC) [Mass/Vol]32.1 g/cFRdslvy89.9-35.2The [facility] HospitalComment on above:Performed By: #### CBC #### [facility] [address] [place] [address] Dr. Ashlie Mckeon (RBC) [Entitic vol]87.3 bHOdnpns60.0-99.0The [facility] HospitalComment on above:Performed By: #### CBC #### [facility] [address] [place] [address] Dr. Ashlie Killian #0.8 103/ulNormal0.3-0.8The [facility] HospitalComment on above:Performed By: #### CBC #### [facility] [address] [place] [address] Dr. Ashlie Palominoocytes/100 WBC (Bld)5.7 %Normal1.7-12.0[facility] Comment on above:Performed By: #### CBC #### [facility] [address] [place] [address] Dr. Ashlie Olsen #7.8 103/ulCritically high1.4-6.5ThMercy Memorial Hospital Comment on above:Performed By: #### CBC #### [facility] [address] [address] [address] Ashlie Steinutrophils/100 WBC (Bld)57.5 %Pqxdxv31.0-75.0The [facility] HospitalComment on above:Performed By: #### CBC #### [facility] [address] [place] [address] Dr. Ashlie HillsPlatelet mean volume (Bld) [Entitic vol]12.0 fLNormal9.5-13.5The [facility] HospitalComment on above:Performed By: #### CBC #### [facility] [address] [place] [address] Dr. Ashlie HillsPLT152 103/gbJpuqtu092-298JbyLicking Memorial HospitalComment on above: Performed By: #### CBC #### [facility] [address] [place] [address] Dr. Ashlie HillsRBC6.00 106/ulCritically high4.20-5.40[facility] Comment on above:Performed By: #### CBC #### [facility] [address] [place] [address] Dr. Ashlie HillsWBC13.6 103/ulCritically high4.0-11.0[facility] HospitalComment on above:Performed By: #### CBC #### [facility] [address] [place] [address] Dr. Ashlie HillsLIPID PROFILEon [id number] RATIO NORMSEE BELOWNoThe University of Toledo Medical CenterComment on above:Result Comment: 3.3 - 4.4 LOW RISK 4.4 - 7.1 AVERAGE RISK 7.1 - 11.0 MODERATE RISK >11.0 HIGH RISKPerformed By: #### CBC #### [facility] [address] [address] [address] Ashlie HillsCholesterol [Mass/Vol]139 mg/dLNormal<=200[facility] Comment on above:Performed By: #### CBC #### [facility] [address] [address] [address] Ashlie HillsCholesterol in HDL [Mass/Vol]35 mg/dLCritically vtf82-28OlwLicking Memorial HospitalComment on above:Performed By: #### CBC #### [facility] [address] [address] [address] Ashlie HillsCholesterol in LDL [Mass/Vol]67.4 mg/dLSt. Charles HospitalComment on above:Performed By: #### CBC #### [facility] [address] [place] [address] Dr. Ashlie Lopezesteroralia.total/Cholesterol in HDL [Mass ratio]4.0 {ratio} NormalLicking Memorial HospitalComment on above:Performed By: #### CBC #### [facility] [address] [address] [address] Ashlie Potts NORMAL> or = 60 mg/dl - LOW CARDIOVASCULAR RISK <40 mg/dl - HIGH CARDIOVASCULAR RISKSt. Charles HospitalComment on above:Performed By: #### CBC #### [facility] [address] [address] [address] Ashlie HillsLDL CALC NORMALSEE BELOWSt. Charles HospitalComment on above:Result Comment: <100 mg/dl OPTIMAL 100 - 129 mg/dl NEAR OR ABOVE OPTIMAL 130 - 159 mg/dl BORDERLINE HIGH 160 - 189 mg/dl HIGH >190 mg/dl VERY HIGH Performed By: #### CBC #### [facility] [address] [place] [address] Dr. Ashlie HillsTriglyceride [Mass/Vol]183 mg/dLCritically high<=150The [facility] HospitalComment on above:Performed By: #### CBC #### [facility] [address] [address] [address] Ashlie HillsVLDL CALC36.6 mg/dLNoThe University of Toledo Medical CenterComment on above: Performed By: #### CBC #### [facility] [address] [address] [address] Ashlie HillsMG MAMM SCREEN 3D ALEX CADon [id number] MAMM SCREEN 3D ALEX CAD Patient: MITZI MACIAS Exam Date: 11/22/2022 : 1970 Gender:F Ordering : SAYDA MCKAYLA WAN SPEECH/LANGUAGE THERAPIST Admission #: [id number] Family : Order #: [id number] CLICK HERE TO VIEW EXAM RADIOLOGY REPORT [...] unknown cancer at age 75. LOCATION: [facility] BREAST COMPOSITION: Almost entirely fatty. FINDINGS: [...] by: Patricia Veloz M.D. on 11/22/2022 at 12:09NoThe University of Toledo Medical CenterPROF 14(COMP METB)on 70-59-0109Gbrmtoc [Mass/Vol]3.0 g/dLCritically low 3.4-5.0The [facility] HospitalComment on above:Performed By: #### CBC #### [facility] [address] [address] [address] Ashlie HillsAlbumin/Globulin [Mass ratio]0.6 {ratio}NormalThe [facility] HospitalComment on above:Performed By: #### CBC #### [facility] [address] [address] [address] Ashlie MoralesP [Catalytic activity/Vol]68 U/DAkhmws75-474Fkb [facility] HospitalComment on above:Performed By: #### CBC #### [facility] [address] [address] [address] Ashlie MoralesT [Catalytic activity/Vol]14 U/WYmbdap50-84Hth [facility] HospitalComment on above:Performed By: #### CBC #### [facility] [address] [place] [address] Dr. Ashlie Hassanon gap [Moles/Vol]12.1 mmol/LNormalThe [facility] Comment on above:Performed By: #### CBC #### [facility] [address] [place] [address] Dr. Ashlie HillsAST [Catalytic activity/Vol]9 U/LCritically ubn13-13Gib [facility] HospitalComment on above:Performed By: #### CBC #### [facility] [address] [place] [address] Dr. Ashlie HillsBilirubin [Mass/Vol]0.4 mg/dLNormal0.2-1.0The [facility] Comment on above:Performed By: #### CBC #### [facility] [address] [place] [address] Dr. Ashlie HillsCalcium [Mass/Vol]9.0 mg/dLNormal8.5-10.1The [facility] Comment on above:Performed By: #### CBC #### [facility] [address] [place] [address] Dr. Ashlie HillsChloride [Moles/Vol]105 mmol/YZbnqbv84-395Arc [facility] Comment on above:Performed By: #### CBC #### [facility] [address] [address] [address] Ashlie HillsCO2 [Moles/Vol]30.7 mmol/DMhkesb06.0-32.0The [facility] Comment on above:Performed By: #### CBC #### [facility] [address] [place] [address] Dr. Ashlie HillsCreatinine [Mass/Vol]0.77 mg/dLNormal0.55-1.02The [facility] HospitalComment on above:Performed By: #### CBC #### [facility] [address] [place] [address] Dr. Dailey ChangEGFR-AF PORTUGUESE>60Normal>=60The [facility] HospitalComment on above:Performed By: #### CBC #### [facility] [address] [place] [address] Dr. Ashlie GrahamGFR-NON AF PORTUGUESE>60Normal>=60The [facility] HospitalComment on above:Performed By: #### CBC #### [facility] [address] [place] [address] Dr. Ashlie HillsGlobulin (S) [Mass/Vol]4.8 g/dLNormalThe [facility] HospitalComment on above:Performed By: #### CBC #### [facility] [address] [place] [address] Dr. Ashlie HillsGlucose [Mass/Vol]162 mg/dLCritically avnl30-472Fdn [facility] HospitalComment on above:Performed By: #### CBC #### [facility] [address] [place] [address] Dr. Ashlie HillsPotassium [Moles/Vol]3.8 mmol/LNormal3.5-5.1The [facility] Comment on above:Performed By: #### CBC #### [facility] [address] [place] [address] Dr. Ashlie HillsProtein [Mass/Vol]7.8 g/dLNormal6.4-8.2The [facility] Comment on above:Performed By: #### CBC #### [facility] [address] [place] [address] Dr. Ashlie Jimenezdium [Moles/Vol]144 mmol/NKggoyr757-468Rji [facility] Comment on above:Performed By: #### CBC #### [facility] [address] [place] [address] Dr. Ashlie Jones nitrogen [Mass/Vol]24.0 mg/dLCritically high7.0-18.0The [facility] HospitalComment on above:Performed By: #### CBC #### [facility] [address] [place] [address] Dr. Ashlie Jones nitrogen/Creatinine [Mass ratio]31.2 mg/mgNormalThe [facility] HospitalComment on above:Performed By: #### CBC #### [facility] [address] [place] [address] Dr. Ashlie Chinchilla AUTO DIFFon [id number] #0.1 103/ulNormal0.0-0.1The [facility] HospitalComment on above:Performed By: #### CBC #### [facility] [address] [place] [address] Dr. Ashlie HillsBasophils/100 WBC (Bld)0.6 %Normal0.2-2.0[facility] Comment on above:Performed By: #### CBC #### [facility] [address] [place] [address] Dr. Ashlie Mcintosh #0.3 103/ulNormal0.0-0.7The [facility] HospitalComment on above: Performed By: #### CBC #### [facility] [address] [place] [address] Dr. Ashlie Grahamosinophils/100 WBC (Bld)2.1 %Normal0.9-7.0The [facility] Comment on above:Performed By: #### CBC #### [facility] [address] [place] [address] Dr. Ashlie Grahamrythrocyte distribution width (RBC) [Ratio]15.9 %Critically high 11.0-15.0The [facility] HospitalComment on above:Performed By: #### CBC #### [facility] [address] [address] [address] Ashlie HillsHematocrit (Bld) [Volume fraction]51.8 %Critically high36.0-48.0 The [facility] HospitalComment on above:Performed By: #### CBC #### [facility] [address] [place] [address] Dr. Ashlie HillsHemoglobin (Bld) [Mass/Vol]16.6 g/dLCritically high12.0-16.0The [facility] HospitalComment on above:Performed By: #### CBC #### [facility] [address] [place] [address] Dr. Ashlie HillsIG #0.03 10e3/ulNormal0.00-0.03The [facility] HospitalComment on above:Performed By: #### CBC #### [facility] [address] [place] [address] Dr. Ashlie Hunter %0.2 %Normal0.0-0.5The [facility] HospitalComment on above: Performed By: #### CBC #### [facility] [address] [place] [address] Dr. Ashlie Swenson #3.9 103/ulCritically high1.2-3.8The [facility] Comment on above:Performed By: #### CBC #### [facility] [address] [place] [address] Dr. Ashlie Jademphocytes/100 WBC (Bld)31.7 %Tqiris56.5-60.0The [facility] HospitalComment on above:Performed By: #### CBC #### [facility] [address] [place] [address] Dr. Ashlie GhoshUAL DIFF REQNONormalThe [facility] HospitalComment on above: Performed By: #### CBC #### [facility] [address] [place] [address] Dr. Ashlie Granger (RBC) [Entitic mass]27.9 iqIaaapg85.7-34.0The [facility] HospitalComment on above:Performed By: #### CBC #### [facility] [address] [address] [address] Ashlie Mckeon (RBC) [Mass/Vol]32.0 g/xGInxzmw55.9-35.2The [facility] HospitalComment on above:Performed By: #### CBC #### [facility] [address] [place] [address] Dr. Ashlie MckeonV (RBC) [Entitic vol]87.1 pAWhqtgr61.0-99.0The [facility] HospitalComment on above:Performed By: #### CBC #### [facility] [address] [place] [address] Dr. Ashlie Killian #0.7 103/ulNormal0.3-0.8The [facility] HospitalComment on above:Performed By: #### CBC #### [facility] [address] [place] [address] Dr. Ashlie Palominoocytes/100 WBC (Bld)5.8 %Normal1.7-12.0[facility] Comment on above:Performed By: #### CBC #### [facility] [address] [place] [address] Dr. Ashlie Olsen #7.3 103/ulCritically high1.4-6.5The [facility] Comment on above:Performed By: #### CBC #### [facility] [address] [place] [address] Dr. Ashlie Steinutrophils/100 WBC (Bld)59.6 %Jpgern84.0-75.0The [facility] HospitalComment on above:Performed By: #### CBC #### [facility] [address] [place] [address] Dr. Ashlie Lantigualet mean volume (Bld) [Entitic vol]11.7 fLNormal9.5-13.5The [facility] HospitalComment on above:Performed By: #### CBC #### [facility] [address] [place] [address] Dr. Aslhie HillsPLT117 103/ulCritically bla188-247Fzi [facility] HospitalComment on above:Performed By: #### CBC #### [facility] [address] [place], [place] [address] Dr. Ashlie HillsRBC5.95 106/ulCritically high4.20-5.40The [facility] Comment on above:Performed By: #### CBC #### [facility] [address] [place], [place] [address] Dr. Ashlie HillsWBC12.3 103/ulCritically high4.0-11.0The [facility] HospitalComment on above:Performed By: #### CBC #### [facility] [address] [place], [place] [address] Dr. Ashlie HillsCT ABD/PELV W CONon 65-90-4379PQ ABD/PELV W CONEXAM: CT ABD/PELV W CON [...] Electronically authenticated by: RICCO PICKARD Date: 2022-10-05 13:13NoOhioHealth Van [facility] URINE PROFILEon 45-92-7504Ewtutvbnm Ql (U)NegativeNormal NEGATIVEThe [facility] HospitalComment on above:Performed By: #### POCGLUC #### [facility] [address] [address] [address] Ashlie Leungarity (U)CLEARNormalCLEARLicking Memorial HospitalComment on above: Performed By: #### POCGLUC #### [facility] [address] [address] [address] Ashlie Prescottlor (U)YELLOWNormalYELLOWLicking Memorial HospitalComment on above: Performed By: #### POCGLUC #### [facility] [address] [address] [address] Ashlie Clayton micrscopic examination will be performed if indicated. NormalThe [facility] HospitalComment on above:Performed By: #### POCGLUC #### [facility] [address] [address] [address] Ashlie Rutledgeose Ql (U)NegativeNormalNEGATIVELicking Memorial HospitalComment on above:Performed By: #### POCGLUC #### [facility] [address] [address] [address] Ashlie HillsHemoglobin Ql (U)NegativeNormalNEGATIVEOur Lady Of Mer[facility] on above:Performed By: #### POCGLUC #### [facility] [address] [address] [address] Ashlie HillsKetones Ql (U)NegativeNormalNEGATIVELicking Memorial HospitalComment on above:Performed By: #### POCGLUC #### [facility] [address] [address] [address] Ashlie HillsLEUKOCYTESNegativeNormalNEGATIVELicking Memorial HospitalComment on above:Performed By: #### POCGLUC #### [facility] [address] [address] [address] Ashlie HillsNitrite Ql (U)NegativeNormalNEGATIVELicking Memorial HospitalComment on above:Performed By: #### POCGLUC #### [facility] [address] [address] [address] Ashlie HillspH (U)6.0 [pH]Normal5-9[facility] HospitalComment on above: Performed By: #### POCGLUC #### [facility] [address] [address] [address] Ashlie HillsProtein (U) [Mass/Vol]100 mg/dLAbnormalNEGATIVE/ TRACEThe [facility] HospitalComment on above:Performed By: #### POCGLUC #### [facility] [address] [place] [address] Dr. Ashlie HillsSPEC GRAVITY1.351Ojbikt5.005-<=1.025The [facility] HospitalComment on above:Performed By: #### POCGLUC #### [facility] [address] [place] [address] Dr. Ashlie Sullivan MICRO INDINDICATEDNormalThMercy Memorial HospitalComment on above: Performed By: #### POCGLUC #### [facility] [address] [place] [address] Dr. Ashlie HillsUrobilinogen Qn (U)1.0 {Little'U}/dLNormal0.2 - 1.0The [facility] HospitalComment on above:Performed By: #### POCGLUC #### [facility] [address] [place] [address] Dr. Ashlie HillsLIPASEon 20-40-8356Qaxkrf [Catalytic activity/Vol]1771.0 U/L Critically high73.0-393.0The [facility] HospitalComment on above:Performed By: #### CBC #### [facility] [address] [place] [address] Dr. Ashlie CrossG HCG QUALon 52-35-2981TTJCXJXBG, QUALNegativeNormalNEGATIVE The [facility] HospitalComment on above:Performed By: #### POCGLUC #### [facility] [address] [place] [address] Dr. Ashlie HillsPROF 14(COMP METB)on 78-49-5120Pciuewz [Mass/Vol]3.2 g/dL Critically low3.4-5.0The [facility] HospitalComment on above:Performed By: #### CBC #### [facility] [address] [place] [address] Dr. Ashlie HillsAlbumin/Globulin [Mass ratio]0.7 {ratio}NormalLicking Memorial HospitalComment on above:Performed By: #### CBC #### [facility] [address] [address] [address] Ashlie Gonzalez [Catalytic activity/Vol]70 U/DDmiqhr17-648Qec [facility] HospitalComment on above:Performed By: #### CBC #### [facility] [address] [address] [address] Ashlie Chambers [Catalytic activity/Vol]11 U/LCritically nfa05-75Wci [facility] HospitalComment on above:Performed By: #### CBC #### [facility] [address] [address] [address] Ashlie Hassanon gap [Moles/Vol]10.3 mmol/LNormalLicking Memorial Hospital Comment on above:Performed By: #### CBC #### [facility] [address] [address] [address] Ashlie HillsAST [Catalytic activity/Vol]11 U/LCritically jbo27-07Dpv [facility] HospitalComment on above:Performed By: #### CBC #### [facility] [address] [address] [address] Ashlie HillsBilirubin [Mass/Vol]0.9 mg/dLNormal0.2-1.0The [facility] Comment on above:Performed By: #### CBC #### [facility] [address] [address] [address] Ashlie HillsCalcium [Mass/Vol]9.3 mg/dLNormal8.5-10.1[facility] Comment on above:Performed By: #### CBC #### [facility] [address] [address] [address] Ashlie iHllsChloride [Moles/Vol]105 mmol/CXdxbts66-024Owp [facility] Comment on above:Performed By: #### CBC #### [facility] [address] [address] [address] Ashlie HillsCO2 [Moles/Vol]30.6 mmol/KNvxcrf20.0-32.0The [facility] Comment on above:Performed By: #### CBC #### [facility] [address] [address] [address] Ashlie HillsCreatinine [Mass/Vol]0.62 mg/dLNormal0.55-1.02The [facility] HospitalComment on above:Performed By: #### CBC #### [facility] [address] [address] [address] Ashlie GrahamGFR-AF PORTUGUESE>60Normal>=60The [facility] HospitalComment on above:Performed By: #### CBC #### [facility] [address] [address] [address] Ashlie GrahamGFR-NON AF PORTUGUESE>60Normal>=60The [facility] HospitalComment on above:Performed By: #### CBC #### [facility] [address] [address] [address] Ashlie HillsGlobulin (S) [Mass/Vol]4.6 g/dLNormalThe [facility] HospitalComment on above:Performed By: #### CBC #### [facility] [address] [address] [address] Ashlie HillsGlucose [Mass/Vol]85 mg/jIBrpdgs10-796IzaLicking Memorial Hospital Comment on above:Performed By: #### CBC #### [facility] [address] [address] [address] Ashlie HillsPotassium [Moles/Vol]3.9 mmol/LNormal3.5-5.1The [facility] Comment on above:Performed By: #### CBC #### [facility] [address] [address] [address] Ashlie HillsProtein [Mass/Vol]7.8 g/dLNormal6.4-8.2The [facility] Comment on above:Performed By: #### CBC #### [facility] [address] [address] [address] Ashlie HillsSodium [Moles/Vol]142 mmol/SPgptum756-172JdmLicking Memorial Hospital Comment on above:Performed By: #### CBC #### [facility] [address] [address] [address] Ashlie Jones nitrogen [Mass/Vol]12.0 mg/dLNormal7.0-18.0[facility] on above:Performed By: #### CBC #### [facility] [address] [address] [address] Ashlie Jones nitrogen/Creatinine [Mass ratio]19.4 mg/mgNoThe University of Toledo Medical CenterComment on above:Performed By: #### CBC #### [facility] [address] [address] [address] Ashlie Recinos MICROSCOPIC ONLYon 11-19-4076KTQCRCPICXBSSQthwvnkuCXKJ SEEN [facility] HospitalComcorewell health [facility] on above:Performed By: #### POCGLUC #### [facility] [address] [address] [address] Ashlie Cortez identified Cx Nom (U)NOT INDICATEDNoSouthwest General Health Center on above:Performed By: #### POCGLUC #### [facility] [address] [address] [address] Ashlie HillsCASTNONE SEENNormalNONE SEENWilson Street Hospital on above:Performed By: #### POCGLUC #### [facility] [address] [address] [address] Ashlie Boyerystals LM Nom (Urine sed)NONE SEENNormalNONE SEENWilson [address] Hospital on above:Performed By: #### POCGLUC #### [facility] [address] [address] [address] Ashlie Camarathelial cells LM Ql (Urine sed)MODERATEAbnormalNONE SEEN /RARE [facility] on above:Performed By: #### POCGLUC #### [facility] [address] [address] [address] Ashlie SuarezCOUSNONE SEENNoecu health roanoke-chowan hospitalNONE SEENWilson Street Hospital on above:Performed By: #### POCGLUC #### [facility] [address] [address] [address] Ashlie HillsSbdvuPRO1-5Bfcifz1-7BroWilson Street Hospital on above:Performed By: #### POCGLUC #### [facility] [address] [place] [address] Dr. Ashlie HillsWBC0-2Abnormal[address] Hospital on above: Performed By: #### POCGLUC #### [facility] [address] [place] [address] Dr. Ashlie HillsCovid-19 PCR (CVDBOSTON CITY HOSP[facility])on [id number]-CoV-2 (COVID-19) RNA MADDY+probe Ql (Unsp spec)DetectedAbnormalNOT DETECTEDThe [facility] on above:Result Comment: This test is not yet approved or cleared by the [place] FDA. When there are no FDA-approved or cleared tests available, and other criteria are met, FDA can make tests available under an emergency access mechanism called an Emergency Use Authorization (EUA). The EUA for this test is supported by the [place] of Health and Human Service's declaration that [...] longer be used).Performed By: #### CVDAGS #### [facility] [address] [place] [address] Dr. Ashlie HillsINFLUENZA A AND B AGon [id number] [facility] [place] [facility] on above:Result Comment: Negative for Flu A protein angiten. Infection due to Flu A cannot be ruled out. FluA angiten in the sample may be below the detection limit of the test.Performed By: #### INFLUAB #### [facility] [address] [place] [address] Dr. Ashlie HillsINFLUBNEGHSEE [facility] [place] [facility] on above: Result Comment: Negative for Flu B protein antigen. Infection due to Flu B cannot be ruled out. FluB antigen in the sample may be below the detection limit of the test.Performed By: #### INFLUAB #### [facility] [address] [place] [address] Dr. Ashlie Centeno AGNegativeNormalNEGATIVE SEE COMMENTThe [facility] HospitalComment on above:Performed By: #### INFLUAB #### [facility] [address] [address] [address] Ashlie Shaffer AGNegativeNormalNEGATIVE SEE COMMENTThe [facility] HospitalComment on above:Performed By: #### INFLUAB #### [facility] [address] [place] [address] Dr. Ashlie HillsCT ABD/PELV W CONon 06-22-0330GS ABD/PELV W CONINDICATION: Disorder of adrenal gland [...] dating back to at least 10/21/2018, unchanged. https://www.ncbi.nlm.nih.gov/pmc/articles/TLV3944118/ Electronically authenticated by: COLLIN HUERTAS Date: 2022-07-27 14:56NormOhioHealth Shelby HospitalCREATININEon 13-00-0326Cillsiuwoo [Mass/Vol]0.81 mg/dLNormal 0.55-1.02The [facility] HospitalComment on above:Performed By: #### CBC #### [facility] [address] [place] [address] Dr. Yilan ChangEGFR-AF PORTUGUESE>60Normal>=60The [facility] HospitalComment on above:Performed By: #### CBC #### [facility] [address] [place], [place] [address] Dr. Dailey ChangEGFR-NON AF PORTUGUESE>60Normal>=60The [facility] HospitalComment on above:Performed By: #### CBC #### [facility] [address] [place], [place] [address] Dr. Dailey ChangCT LOW EXT W CONT LTon [id number] LOW EXT W CONT LTEXAMINATION: CT LOW [...] authenticated by: PATRICIA VELOZ Date: 2022-07-18 14:[address] [place], [place] [address]XR KNEE LT 1_2 Von 32-30-5653CW KNEE LT 1_2 VEXAM: XR KNEE LT [...] Electronically authenticated by: HATTIE BAUTISTA Date: 2022-07-18 12:00[facility] HospitalCovid-19 PCR (CVDTB)on 24-24-6965IHRV-CoV-2 (COVID-19) RNA MADDY+probe Ql (Unsp spec)Not detectedNormalNOT DETECTEDThe [facility] Comment on above:Result Comment: This test is not yet approved or cleared by the [place] FDA. When there are no FDA-approved or cleared tests available, and other criteria are met, FDA can make tests available under an emergency access mechanism called an Emergency Use Authorization (EUA). The EUA for this test is supported by the [place] Assembler of Health and Human Service's (HHS's) declaration [...] consistent with SARS-CoV-2.Performed By: #### CBC #### [facility] [address] [place] [address] Dr. Ashlie MonteroNZA A AND B AGon [id number] Health Washington TownshipComment on above:Result Comment: Negative for Flu A protein angiten. Infection due to Flu A cannot be ruled out. FluA angiten in the sample may be below the detection limit of the test.Performed By: #### CBC #### [facility] [address] [place] [address] Dr. Ashlie HillsINFLUBNEGKettering Health Washington TownshipComcorewell health [facility] on above: Result Comment: Negative for Flu B protein antigen. Infection due to Flu B cannot be ruled out. FluB antigen in the sample may be below the detection limit of the test.Performed By: #### CBC #### [facility] [address] [place] [address] Dr. Ashlie Centeno AGNegativeNormalNEGATIVE SEE COMMENTThe [facility] on above:Performed By: #### CBC #### [facility] [address] [place] [address] Dr. Ashlie Shaffer AGNegativeNormalNEGATIVE SEE COMMENTThe [facility] on above:Performed By: #### CBC #### [facility] [address] [place] [address] Dr. Ashlie HillsPOINT OF CARE GLUCOSEon [id number] [Mass/Vol]108 mg/dL Critically jakb37-951Inr [facility] HospitalComcorewell health will[facility] on above:Performed By: #### CBC #### [facility] [address] [place] [address] Dr. Ashlie HillsANA by IFAon [id number] Antibodies, IFANegativeNormal The [facility] HospitalComcorewell health [facility] on above:Result Comment: Negative <1:80 Borderline 1:80 Positive >1:80 ICAP nomenclature: AC-0 For more information about Hep-2 cell patterns use ANApatterns.org, the official website for the International Consensus on Antinuclear Antibody (RAGHU) Patterns (ICAP).Performed By: #### ANAIFA #### [facility] [address] [place] [address] Dr. Ashlie HillsIMMUNOFIXATION (TREVON), URINEon [id number] Interpretation:U CommentNormalThe Regional Medical Center on above:Result Comment: No monoclonality detected.Performed By: #### CBC #### [facility] [address] [place] [address] Dr. Ashlie HillsIMMUNOFIXATION(TREVON),PROTEIN ELEC(PE),FREon [id number] [Mass/Vol]3.0 g/dLNormal2.9-4.4[facility] on above:Performed By: #### INFLUAB #### [facility] [address] [place] [address] Dr. Ashlie HillsAlbumin/Globulin [Mass ratio]0.8 {ratio}Normal0.7-1.7The [facility] HospitalComment on above:Performed By: #### INFLUAB #### [facility] [address] [place] [address] Dr. Ashlie HillsGkfiwHrfdv-9-Saarnpne2.3 g/dLNormal0.0-0.4The [facility] HospitalComment on above:Performed By: #### INFLUAB #### [facility] [address] [place] [address] Dr. Ashlie HillsHybxfSknyn-4-Cqrlhdwi0.0 g/dLNormal0.4-1.0The [facility] HospitalComment on above:Performed By: #### INFLUAB #### [facility] [address] [place] [address] Dr. Ashlie HlilsBeta Globulin1.8 g/dLCritically high0.7-1.3TSelect Medical [facility] [place] Comment on above:Performed By: #### INFLUAB #### [facility] [address] [place] [address] Dr. Ashlie Skleton [place] Lt Chains,S45.2 mg/LCritically high3.3-19.4The [facility] HospitalComment on above:Performed By: #### INFLUAB #### [facility] [address] [place] [address] Dr. Ashlie Skelton Lambda Lt Chains,S40.3 mg/LCritically high5.7-26.3The [facility] HospitalComment on above:Performed By: #### INFLUAB #### [facility] [address] [place] [address] Dr. Ashlie HillsGamma Globulin0.8 g/dLNormal0.4-1.8The [facility] HospitalComment on above:Performed By: #### INFLUAB #### [facility] [address] [place] [address] Dr. Ashlie HillsGlobulin (S) [Mass/Vol]3.9 g/dLNormal2.2-3.9The [facility] Comment on above:Performed By: #### INFLUAB #### [facility] [address] [place] [address] Dr. Ashlie HillsImmunofixation Result, SerumCommentNoThe [facility] Comment on above:Result Comment: No monoclonality detected.Performed By: #### INFLUAB #### [facility] [address] [place] [address] Dr. Ashlie HillsImmunoglobulin A, Qn, Djobg774 mg/dLCritically jfxg53-856Inu [facility] HospitalComment on above:Performed By: #### INFLUAB #### [facility] [address] [place] [address] Dr. Ashlie HillsImmunoglobulin G, Qn, Guaju842 mg/hRZlxqnk783-7194Ylh [facility] HospitalComcorewell health [facility] on above:Performed By: #### INFLUAB #### [facility] [address] [place] [address] Dr. Ashlie HillsImmunoglobulin M, Qn, Serum39 mg/iHWaluko56-867Faw [facility] HospitalComment on above:Performed By: #### INFLUAB #### [facility] [address] [place] [address] Dr. Ashlie HillsKappa/Lambda Ratio, S1.03Xqdxtr4.26-1.65[facility] Comment on above:Performed By: #### INFLUAB #### [facility] [address] [place] [address] Dr. Ashlie HillsM-SpikeNot ObservedNormalNot ObservedThe [facility] HospitalComment on above:Performed By: #### INFLUAB #### [facility] [address] [place] [address] Dr. Ashlie Bradford.NormalThe [facility] HospitalComment on above:Performed By: #### INFLUAB #### [facility] [address] [place] [address] Dr. Ashlie Fletcher note:CommentOhio State Harding Hospital on above: Result Comment: Protein electrophoresis scan will follow via computer, mail, or coil cutter delivery.Performed By: #### INFLUAB #### [facility] [address] [place] [address] Dr. Ashlie HillsProtein [Mass/Vol]6.9 g/dLNormal6.0-8.5The [facility] Comment on above:Performed By: #### INFLUAB #### [facility] [address] [place] [address] Dr. Ashlie HillsC-PEPTIDE, SERUMon [id number]-Peptide, Serum3.1 ng/mLNormal 1.1-4.4The [facility] HospitalComment on above:Result Comment: C-Peptide reference interval is for fasting patients.Performed By: #### CPEPT #### [facility] [address] [place] [address] Dr. Ashlie Sandoval B SURFACE ANTIGEN SCREENon 03-03-9618SYzIl ScreenNegative NormalNegativeThe [facility] HospitalComment on above:Performed By: #### CBC #### [facility] [address] [place] [address] Dr. Ashlie ReavesPATITIS C VIRUS AB W/ REFLEX QUANTon [id number] AB<0.1Normal 0.0-0.9The [facility] HospitalComment on above:Performed By: #### INFLUAB #### [facility] [address] [place] [address] Dr. Ashlie HillsInterpretation:CommentNormalThMercy Memorial HospitalComment on above:Result Comment: Negative Not infected with HCV, unless recent infection is suspected or other evidence exists to indicate HCV infection.Performed By: #### INFLUAB #### [facility] [address] [place] [address] Dr. Ashlie HillsMICROALBUMIN/ CREATININE RATIOon [id number], Wympx374.4 ug/mLNormalNot Estab.The [facility] HospitalComment on above:Performed By: #### CBC #### [facility] [address] [place] [address] Dr. Ashlie HillsAlbumin/ Creatinine Typdr449 mg/g creatCritically high0-29The [facility] HospitalComment on above:Result Comment: Normal: 0 - 29 Moderately increased: 30 - 300 Severely increased: >300Performed By: #### CBC #### [facility] [address] [address] [address] Ashlie HillsCreatinine, Gmvwe665.9 mg/dLNormalNot Estab.[facility] Comment on above:Performed By: #### CBC #### [facility] [address] [address] [address] Ashlie Jerome D 25-[place] LABCORPon 99-24-5727Limbsdr D, 25-Hydroxy<4.0 Critically low30.0-100.0The [facility] HospitalComment on above:Result Comment: Vitamin D deficiency has been defined by the [place] [employer] and an Endocrine Society practice guideline as a level of serum 25-OH vitamin D less than 20 ng/mL (1,2). The Endocrine Society went on to further define vitamin D insufficiency as a level between 21 and 29 ng/mL (2). 1. IOM ([place] [employer]). 2010. Dietary reference intakes for calcium and D. [place]: The National Academies Press. 2. Lynda MF, Keely [place], Leandra LOPEZ, et al. Evaluation, treatment, and prevention of vitamin D deficiency: an Endocrine Society clinical practice guideline. JCEM. 2010; 96(7):1911-30.Performed By: #### CBC #### [facility] [address] [address] [address] Ashlie HillsGLYCOHEMOGLOBIN A1Con [id number] RECOMMENDATIONSEE BELOWNormal The [facility] HospitalComment on above:Result Comment: ADA RECOMMENDED LIMIT 4.0 - 6.0 ADA THERAPEUTIC TARGET < 7.0 ACTION SUGGESTED > 7.0Performed By: #### CVDAGS #### [facility] [address] [address] [address] Ashlie HillsGlucose [Mass/Vol]295 mg/dLNormalThe [facility] HospitalComment on above:Performed By: #### CVDAGS #### [facility] [address] [address] [address] Ashlie HillsHbA1c (Bld) [Mass fraction]11.9 %Critically high4.5-6.2The [facility] HospitalComment on above:Performed By: #### CVDAGS #### [facility] [address] [place] [address] Dr. Ashlie HillsHEMOGRAM AND PLATELon 62-52-1280Hodbrsezii (Bld) [Volume fraction]56.3 %Critically high36.0-48.0The [facility] HospitalComment on above: Performed By: #### CVDAGS #### [facility] [address] [place] [address] Dr. Ashlie HillsHemoglobin (Bld) [Mass/Vol]18.0 g/dLCritically high12.0-16.0The [facility] HospitalComment on above:Performed By: #### CVDAGS #### [facility] [address] [place] [address] Dr. Ashlie MckeonH (RBC) [Entitic mass]29.5 qxMuyxpd09.7-34.0The [facility] HospitalComment on above:Performed By: #### CVDAGS #### [facility] [address] [place] [address] Dr. Ashlie MckeonHC (RBC) [Mass/Vol]32.0 g/oTBcnakf96.9-35.2The [facility] HospitalComment on above:Performed By: #### CVDAGS #### [facility] [address] [place] [address] Dr. Ashlie MckeonV (RBC) [Entitic vol]92.1 sIBmacws17.0-99.0The [facility] HospitalComment on above:Performed By: #### CVDAGS #### [facility] [address] [place] [address] Dr. Ashlie HillsPLT123 103/ulCritically rkc499-723Juk [facility] HospitalComment on above:Performed By: #### CVDAGS #### [facility] [address] [place] [address] Dr. Ashlie HillsRBC6.11 106/ulCritically high4.20-5.40The [facility] Comment on above:Performed By: #### CVDAGS #### [facility] [address] [place] [address] Dr. Ashlie HillsWBC16.4 103/ulCritically high4.0-11.0The [facility] HospitalComment on above:Performed By: #### CVDAGS #### [facility] [address] [place] [address] Dr. Ashlie OmerID PROFILEon [id number]-HDL RATIO NORMSEE BELOWSt. Charles HospitalComment on above:Result Comment: 3.3 - 4.4 LOW RISK 4.4 - 7.1 AVERAGE RISK 7.1 - 11.0 MODERATE RISK >11.0 HIGH RISKPerformed By: #### CVDAGS #### [facility] [address] [place] [address] Dr. Ashlie Lopezesterol [Mass/Vol]159 mg/dLNormal<=200[facility] Comment on above:Performed By: #### CVDAGS #### [facility] [address] [place] [address] Dr. Ashlie HillsCholesterol in HDL [Mass/Vol]40 mg/nTChesyf60-72Drg [facility] HospitalComment on above:Performed By: #### CVDAGS #### [facility] [address] [place] [address] Dr. Ashlie HillsCholesterol in LDL [Mass/Vol]81.8 mg/dLSt. Charles HospitalComment on above:Performed By: #### CVDAGS #### [facility] [address] [place] [address] Dr. Ashlie Villa.total/Cholesterol in HDL [Mass ratio]4.0 {ratio} NormalThe [facility] HospitalComment on above:Performed By: #### CVDAGS #### [facility] [address] [place] [address] Dr. Ashlie Potts NORMAL> or = 60 mg/dl - LOW CARDIOVASCULAR RISK <40 mg/dl - HIGH CARDIOVASCULAR RISKSt. Charles HospitalComment on above:Performed By: #### CVDAGS #### [facility] [address] [place] [address] Dr. Ashlie Desai CALC NORMALSEE BELOWSt. Charles HospitalComment on above:Result Comment: <100 mg/dl OPTIMAL 100 - 129 mg/dl NEAR OR ABOVE OPTIMAL 130 - 159 mg/dl BORDERLINE HIGH 160 - 189 mg/dl HIGH >190 mg/dl VERY HIGH Performed By: #### CVDAGS #### [facility] [address] [place] [address] Dr. Ashlie HillsTriglyceride [Mass/Vol]186 mg/dLCritically high<=150The [facility] HospitalComment on above:Performed By: #### CVDAGS #### [facility] [address] [address] [address] Ashlie HillsVLDL CALC37.2 mg/dLSt. Charles HospitalComment on above: Performed By: #### CVDAGS #### [facility] [address] [place] [address] Dr. Ashlie HillsRENCHAUNCEY FUNCTION PANELon [id number] [Mass/Vol]3.1 g/dL Critically low3.4-5.0[facility] Memorial HospitalComment on above:Performed By: #### CBC #### [facility] [address] [place] [address] Dr. Ashlie HillsCalcium [Mass/Vol]9.2 mg/dLNormal8.5-10.1[facility] Comment on above:Performed By: #### CBC #### [facility] [address] [place] [address] Dr. Ashlie HillsChloride [Moles/Vol]102 mmol/QFvvynv84-500Akm [facility] Comment on above:Performed By: #### CBC #### [facility] [address] [address] [address] Ashlie HillsCO2 [Moles/Vol]31.9 mmol/XWhgunc03.0-32.0The [facility] Comment on above:Performed By: #### CBC #### [facility] [address] [place] [address] Dr. Ashlie HillsCreatinine [Mass/Vol]0.68 mg/dLNormal0.55-1.02[facility] HospitalComment on above:Performed By: #### CBC #### [facility] [address] [address] [address] Ashlie GrahamGFR-AF PORTUGUESE>60Normal>=60The [facility] HospitalComment on above:Performed By: #### CBC #### [facility] [address] [address] [address] Ashlie GrahamGFR-NON AF PORTUGUESE>60Normal>=60The [facility] HospitalComment on above:Performed By: #### CBC #### [facility] [address] [address] [address] Ashlie iHllsGlucose [Mass/Vol]131 mg/dLCritically ulyt19-927Gvi [facility] HospitalComment on above:Performed By: #### CBC #### [facility] [address] [address] [address] Ashlie HillsPhosphate [Mass/Vol]4.0 mg/dLNormal2.6-4.7The [facility] Comment on above:Performed By: #### CBC #### [facility] [address] [address] [address] Ashlie HillsPotassium [Moles/Vol]4.0 mmol/LNormal3.5-5.1The [facility] Comment on above:Performed By: #### CBC #### [facility] [address] [address] [address] Ashlie HillsSodium [Moles/Vol]141 mmol/PXpjicy805-439Knz [facility] Comment on above:Performed By: #### CBC #### [facility] [address] [address] [address] Ashlie HillsUrea nitrogen [Mass/Vol]17.0 mg/dLNormal7.0-18.0The [facility] HospitalComment on above:Performed By: #### CBC #### [facility] [address] [address] [address] Ashlie Vaughn RANDOM W/MICROSCOPICon [id number] SEENNormalNONE SEENThe [facility] HospitalComment on above:Performed By: #### INFLUAB #### [facility] [address] [address] [address] Ashlie HillsBilirubin Ql (U)NegativeNormalNEGHocking Valley Community Hospital Comment on above:Performed By: #### INFLUAB #### [facility] [address] [address] [address] Ashlie HillsCASTNONE SEENNormalNONE SEENLicking Memorial HospitalComment on above:Performed By: #### INFLUAB #### [facility] [address] [address] [address] Ashlie HillsClarity (U)CLEARNormalCLEARLicking Memorial HospitalComment on above: Performed By: #### INFLUAB #### [facility] [address] [address] [address] Ashlie HillsColor (U)YELLOWNormalYELLOWLicking Memorial HospitalComment on above: Performed By: #### INFLUAB #### [facility] [address] [address] [address] Ashlie HillsCrystals LM Nom (Urine sed)NONE SEENNormalNONE SEENLicking Memorial HospitalComment on above:Performed By: #### INFLUAB #### [facility] [address] [address] [address] Dailey ChangEpithelial cells LM Ql (Urine sed)FEWAbnormalNONE SEEN /RARELicking Memorial HospitalComment on above:Performed By: #### INFLUAB #### [facility] [address] [address] [address] Ashlie HillsGlucose Ql (U)NegativeNormalNEGATIVELicking Memorial HospitalComment on above:Performed By: #### INFLUAB #### [facility] [address] [place] [address] Dr. Ashlie HillsHemoglobin Ql (U)NegativeNormalNEGHocking Valley Community Hospital Comment on above:Performed By: #### INFLUAB #### [facility] [address] [address] [address] Ashlie HillsKetones Ql (U)NegativeNormalNEGATIVEMadison Health [facility] HospitalComment on above:Performed By: #### INFLUAB #### [facility] [address] [address] [address] Ashlie HillsLEUKOCYTESNegativeNormalNEGATIVEThe [facility] HospitalComment on above:Performed By: #### INFLUAB #### [facility] [address] [place] [address] Dr. Ashlie HillsMUCOUSNONE SEENNormalNONE SEENThe [facility] HospitalComment on above:Performed By: #### INFLUAB #### [facility] [address] [place] [address] Dr. Ashlie HillsNitrite Ql (U)NegativeNormalNEGATIVEThe [facility] HospitalComment on above:Performed By: #### INFLUAB #### [facility] [address] [place] [address] Dr. Ashlie HillspH (U)5.5 [pH]Normal5-9The [facility] HospitalComment on above: Performed By: #### INFLUAB #### [facility] [address] [place] [address] Dr. Ashlie HillsLyxflZQH2-3Uapssd1-4[facility] on above:Performed By: #### INFLUAB #### [facility] [address] [place] [address] Dr. Ashlie HillsSPEC GRAVITY>=1.480Faszufuz3.005-<=1.025The [facility] Comment on above:Performed By: #### INFLUAB #### [facility] [address] [place] [address] Dr. Ashlie Vaughn SUEYWFX857 mg/dlAbnormalNEGATIVE/ TRACEThe [facility] Comment on above:Performed By: #### INFLUAB #### [facility] [address] [place] [address] Dr. Ashlie Pandyainogen Qn (U)0.2 {Little'U}/dLNormal0.2 - 1.0The [facility] HospitalComment on above:Performed By: #### INFLUAB #### [facility] [address] [address] [address] Ashlie BhaktaBCNONTracey SEENNormalNONE SEENThe [facility] HospitalComment on above: Performed By: #### INFLUAB #### [facility] [address] [place] [address] Dr. Ashlie Christine ACID SERUMon [id number] [Mass/Vol]5.0 mg/dLNormal 2.6-6.0The Warren HospitalComment on above:Performed By: #### INFLUAB #### [facility] [address] [place] [address] Dr. Ashlie Recinos T PROTEIN CREAT RATIOon 63-80-0225Ecvefgt (U) [Mass/Vol] 77.9 mg/dLCritically high<=12.0The [facility] HospitalComment on above:Performed By: #### CVDAGS #### [facility] [address] [place] [address] Dr. Ashlie Sullivan PROT CREAT RAT0.44NormalThe [facility] HospitalComment on above: Performed By: #### CVDAGS #### [facility] [address] [place] [address] Dr. Ashlie Recinos EYTKH864.15 mg/xVVdoxzw66.00-300.00The [facility] Comment on above:Performed By: #### CVDAGS #### [facility] [address] [place] [address] Dr. Ashlie HillsCULTURE URINEon [id number] URINECulture Observations: GREATER THAN TWO ORGANISMS PRESENT, HEAVILY MIXED. PLEASE RESUBMIT CLEAN CATCH MID-STREAM URINE IF CLINICALLY INDICATED.NormalThe [facility] HospitalComment on above:Performed By: #### INFLUAB #### [facility] [address] [place] [address] Dr. Ashlie VernonC AUTO DIFFon [id number] #0.1 103/ulNormal0.0-0.1The [facility] HospitalComment on above:Performed By: #### CBC #### [facility] [address] [place] [address] Dr. Ashlie HillsBasophils/100 WBC (Bld)0.5 %Normal0.2-2.0The [facility] Comment on above:Performed By: #### CBC #### [facility] [address] [address] [address] Ashlie Mcintosh #0.4 103/ulNormal0.0-0.7The [facility] HospitalComment on above: Performed By: #### CBC #### [facility] [address] [address] [address] Ashlie Grahamosinophils/100 WBC (Bld)2.4 %Normal0.9-7.0The [facility] Comment on above:Performed By: #### CBC #### [facility] [address] [place] [address] Dr. Ashlie Grahamrythrocyte distribution width (RBC) [Ratio]14.1 %Hftajx70.0-15.0 [facility] HospitalComment on above:Performed By: #### CBC #### [facility] [address] [place] [address] Dr. Ashlie HillsHematocrit (Bld) [Volume fraction]55.9 %Critically high36.0-48.0 The [facility] HospitalComment on above:Performed By: #### CBC #### [facility] [address] [place] [address] Dr. Ashlie HillsHemoglobin (Bld) [Mass/Vol]17.9 g/dLCritically high12.0-16.0The [facility] HospitalComment on above:Performed By: #### CBC #### [facility] [address] [place] [address] Dr. Ashlie Hunter #0.06 10e3/ulCritically high0.00-0.03The [facility] Comment on above:Performed By: #### CBC #### [facility] [address] [address] [address] Ashlie Hunter %0.4 %Normal0.0-0.5The [facility] HospitalComment on above: Performed By: #### CBC #### [facility] [address] [address] [address] Ashlie Swenson #5.8 103/ulCritically high1.2-3.8The [facility] Comment on above:Performed By: #### CBC #### [facility] [address] [address] [address] Ashlie Jademphocytes/100 WBC (Bld)35.4 %Cfryga96.5-60.0The [facility] HospitalComment on above:Performed By: #### CBC #### [facility] [address] [place] [address] Dr. Ashlie Marie DIFF REQNONormalThe Lancaster Municipal HospitalComment on above: Performed By: #### CBC #### [facility] [address] [place] [address] Dr. Ashlie Mckeon (RBC) [Entitic mass]29.4 siFmenlt66.7-34.0The [facility] Municipal HospitalComment on above:Performed By: #### CBC #### [facility] [address] [place] [address] Dr. Ashlie Mckeon (RBC) [Mass/Vol]32.0 g/wLNgitsv49.9-35.2The [facility] HospitalComment on above:Performed By: #### CBC #### [facility] [address] [place] [address] Dr. Ashlie Mckeon (RBC) [Entitic vol]91.8 xGKncalz74.0-99.0The [facility] HospitalComment on above:Performed By: #### CBC #### [facility] [address] [place] [address] Dr. Ashlie Killian #0.8 103/ulNormal0.3-0.8The [facility] HospitalComment on above:Performed By: #### CBC #### [facility] [address] [place] [address] Dr. Ashlie Palominoocytes/100 WBC (Bld)4.8 %Normal1.7-12.0[facility] Comment on above:Performed By: #### CBC #### [facility] [address] [address] [address] Ashlie SteinUT #9.3 103/ulCritically high1.4-6.5The [facility] Comment on above:Performed By: #### CBC #### [facility] [address] [address] [address] Ashlie Steinutrophils/100 WBC (Bld)56.5 %Wddgsi83.0-75.0The [facility] HospitalComment on above:Performed By: #### CBC #### [facility] [address] [address] [address] Ashlie Lantigualet mean volume (Bld) [Entitic vol]12.9 fLNormal9.5-13.5The [facility] HospitalComment on above:Performed By: #### CBC #### [facility] [address] [place] [address] Dr. Ashlie HillsPLT127 103/ulCritically hnn998-995Msc [facility] HospitalComment on above:Performed By: #### CBC #### [facility] [address] [address] [address] Ashlie HillsRBC6.09 106/ulCritically high4.20-5.40[facility] Comment on above:Performed By: #### CBC #### [facility] [address] [address] [address] Ashlie HillsWBC16.4 103/ulCritically high4.0-11.0The [facility] HospitalComment on above:Performed By: #### CBC #### [facility] [address] [place] [address] Dr. Ashlie HillsCT ABD/PELVIS WO CONon 08-41-6151RY ABD/PELVIS WO CON Begin Addendum #1 Mildly [...] without diverticulitis. Severe right hip degenerative change.NormalThe [facility] URINE PROFILEon 23-88-3543Mmkiwhceh Ql (U) NegativeNormalNEGATIVELicking Memorial HospitalComment on above:Performed By: #### ERUR, UMICRO #### [facility] [address] [address] [address] Ashlie Chilel (U)CLEARNormalCLEARLicking Memorial HospitalComment on above: Performed By: #### ERUR, UMICRO #### [facility] [address] [address] [address] Ashlie Roberts (U)DK. ORANGEAbnormalYELLOWLicking Memorial HospitalComment on above:Performed By: #### ERUR, UMICRO #### [facility] [address] [address] [address] Ashlie Clayton micrscopic examination will be performed if indicated. NormalLicking Memorial HospitalComment on above:Performed By: #### OBED, UMICRO #### [facility] [address] [address] [address] Ashlie HillsGlucose Ql (U)250 mg/dlAbnormalMercy Health St. [facility] Comment on above:Performed By: #### KRISTINAR, UMICRO #### [facility] [address] [address] [address] Ashlie HillsHemoglobin Ql (U)[facility] HospitalrmalNEGHocking [facility] Community [facility] Comment on above:Performed By: #### ERUR, UMICRO #### [facility] [address] [address] [address] Ashlie HillsKetones Ql (U)NegativeNormalNEGATIVELicking Memorial HospitalComment on above:Performed By: #### ERUR, UMICRO #### [facility] [address] [address] [address] Ashlie HillsLEUKOCYTESNegativeNormalNEGHocking Valley Community HospitalComment on above:Performed By: #### ERUR, UMICRO #### [facility] [address] [address] [address] Ashlie HillsNitrite Ql (U)NegativeNormalNEGATIVELicking Memorial HospitalComment on above:Performed By: #### ERUR, UMICRO #### [facility] [address] [place] [address] Dr. Ashlie HillspH (U)5.0 [pH]Normal5-9The [facility] HospitalComment on above: Performed By: #### OBED UMICRO #### [facility] [address] [place] [address] Dr. Ashlie HillsProtein (U) [Mass/Vol]100 mg/dLAbnormalNEGATIVE/ TRACEThe [facility] HospitalComment on above:Performed By: #### OBED UMICRO #### [facility] [address] [place] [address] Dr. Ashlie HillsSPEC GRAVITY>=1.779Tmjuxcbu7.005-<=1.025The [facility] Comment on above:Performed By: #### OBED UMICRO #### [facility] [address] [place] [address] Dr. Ashlie HillsUR MICRO INDINDICATEDNormalThe [facility] HospitalComment on above: Performed By: #### OBED UMICRO #### [facility] [address] [place] [address] Dr. Ashlie Metzbilinogen Qn (U)1.0 {Little'U}/dLNormal0.2 - 1.0The [facility] HospitalComment on above:Performed By: #### OBED UMICRO #### [facility] [address] [place] [address] Dr. Ashlie HillsPROF CHEM 8 (BAS METB)on 22-01-7163Dzdvc gap [Moles/Vol]12.1 mmol/LNormalThe [facility] HospitalComment on above:Performed By: #### INFLUAB #### [facility] [address] [place] [address] Dr. Ashlie HillsCalcium [Mass/Vol]9.0 mg/dLNormal8.5-10.1[facility] Comment on above:Performed By: #### INFLUAB #### [facility] [address] [place] [address] Dr. Ashlie HillsChloride [Moles/Vol]101 mmol/QDyxdtu51-330Gbp [facility] Comment on above:Performed By: #### INFLUAB #### [facility] [address] [place] [address] Dr. Ashlie HillsCO2 [Moles/Vol]29.1 mmol/ZBfejsj83.0-32.0The [facility] Comment on above:Performed By: #### INFLUAB #### [facility] [address] [address] [address] Ashlie HillsCreatinine [Mass/Vol]0.86 mg/dLNormal0.55-1.02The [facility] HospitalComment on above:Performed By: #### INFLUAB #### [facility] [address] [place] [address] Dr. Dailey ChangEGFR-AF PORTUGUESE>60Normal>=60The [facility] HospitalComment on above:Performed By: #### INFLUAB #### [facility] [address] [place] [address] Dr. Ashlie GrahamGFR-NON AF PORTUGUESE>60Normal>=60The [facility] HospitalComment on above:Performed By: #### INFLUAB #### [facility] [address] [place] [address] Dr. Ashlie HillsGlucose [Mass/Vol]236 mg/dLCritically zgvw92-283Fwn [facility] HospitalComment on above:Performed By: #### INFLUAB #### [facility] [address] [place] [address] Dr. Ashlie HillsPotassium [Moles/Vol]4.2 mmol/LNormal3.5-5.1The [facility] Comment on above:Performed By: #### INFLUAB #### [facility] [address] [place] [address] Dr. Ashlie HillsSodium [Moles/Vol]138 mmol/EEynzwk021-118Hps [facility] Comment on above:Performed By: #### INFLUAB #### [facility] [address] [place] [address] Dr. Ashlie HillsUrea nitrogen [Mass/Vol]11.0 mg/dLNormal7.0-18.0[facility] HospitalComment on above:Performed By: #### INFLUAB #### [facility] [address] [place] [address] Dr. Ashlie Jones nitrogen/Creatinine [Mass ratio]12.8 mg/mgNoThe University of Toledo Medical CenterComment on above:Performed By: #### INFLUAB #### [facility] [address] [place] [address] Dr. Ashlie Recinos MICROSCOPIC ONLYon 67-83-4296ERWREEPUVDPVOPogfkcwvXZTK SEEN [facility] HospitalComcorewell health [facility] on above:Performed By: #### MADELINE CLAYRO #### [facility] [address] [place] [address] Dr. Ashlie Cortez identified Cx Nom (U)INDICATEDSt. Charles HospitalComcorewell health [facility] on above:Performed By: #### PEREZ CLAYICRO #### [facility] [address] [place] [address] Dr. Ashlie Thibodeaux SEENNormalNONE SEENLicking Memorial HospitalComcorewell health [facility] on above:Performed By: #### MADELINE CLAYRO #### [facility] [address] [place] [address] Dr. Ashlie Banegas LM Nom (Urine sed)NONE SEENNormalNONE SEENLicking Memorial HospitalComcorewell health [facility] on above:Performed By: #### OBED UMICRO #### [facility] [address] [place] [address] Dr. Dailey ChangEpithelial cells LM Ql (Urine sed)MODERATEAbnormalNONE SEEN /RARE The [facility] HospitalComcorewell health [facility] on above:Performed By: #### OBED UMICRO #### [facility] [address] [place] [address] Dr. Ashlie Guzman SEENNormalNONE SEENLicking Memorial HospitalComcorewell health [facility] on above:Performed By: #### OBED UMICRO #### [facility] [address] [place] [address] Dr. Ashlie HillsHctitYBR9-6Mfxoqb1-0HgkWyandot Memorial Hospitalment on above:Performed By: #### ERUR, UMICRO #### [facility] [address] [place] [address] Dr. Ashlie HillsWBC0-2Abnormal[address] [facility] on above: Performed By: #### ERUR, UMICRO #### [facility] [address] [address] [address] Ashlie VelásquezASTPRESENTAbnormalNONE SEENWyandot Memorial Hospitalment on above:Performed By: #### ERUR, UMICRO #### [facility] [address] [address] [address] Ashlie Hutchinson RIGHT 1 OR 2 VWS WITH PELVISon 16-53-8201TIT RIGHT 1 OR 2 VWS WITH PELVISUnCorey Hospital Department of Radiology [address] [place] [id number] Patient Name: MITZI MACIAS : 1970 Sex: F Age: Race: White Pt. Location: Patient Status: O Ordered Date: 07/20/2020 1:45:00 PM Completed Date: 07/20/2020 01:57 PM Requesting Provider: LIZ EISENBERG Attending Provider: LIZ EISENBERG Report Copy To: MCKAYLA BLAS Signs & Symptoms: M25.551 Pain in right hip I10 History: [place] Comments: evaluate Exam: HIP RIGHT 1 OR [...] MRI. Electronically signed: Pipo Acevedo. Transcribed by: [id number], User Resident: Electronically Signed by: PIPO ACEVEDO @ 07/20/2020 03:45 [facility] HospitalComment on above:Order Comment: evaluate Vital Signs Date TimeVital SignValuePerforming HbgtfohnsXeurarew17-16-3250 17:58-0400Body birnth130.1 cmLisa Aichholz [employer] Work Phone: [phone] [place], [place] 1705710-22-2025 17:58-0400 Body mass index (BMI) [Ratio]61 kg/m2Lisa Aichholz [employer] Work Phone: [phone]10-22-2025 17:58-0400 Body fwszbxjppik17.1 [degF]Mckayla Aichholz [employer] Work Phone: [phone]10-22-2025 17:58-0400 Body udzqsw880.18 kgLisa Aichholz [employer] Work Phone: 1(123)519-[address] [place], [place] 6105010-22-2025 17:58-0400 Diastolic blood mm[Hg]Mckayla Aichholz [employer] Work Phone: [phone] [place], [place] 6105010-22-2025 17:58-0400 Heart rate84 /minLisa Aichholz [employer] Work Phone: [phone]10-22-2025 17:58-0400 Respiratory rate20 /minLisa Aichholz [employer] Work Phone: [phone] [place], [place] 6105010-22-2025 17:58-0400 SaO2% (BldA) [Mass fraction]90 %Mckayla Aichholz [employer] Work Phone: [phone]10-22-2025 17:58-0400 Systolic blood ibsiglhg238 mm[Hg]Mckayla Aichholz [employer] Work Phone: 1(395)[address]09-29-2025 15:37-0400 Body xwezbvlfsqn28.1 [degF]Mckayla Aichholz [employer] Work Phone: [phone])[address]09-29-2025 15:37-0400 Diastolic blood fopzcoqb00 mm[Hg]Mckayla Aichholz [employer] Work Phone: [phone])[address]09-29-2025 15:37-0400 Heart rate81 /minLisa Aichholz [employer] Work Phone: [phone] [place], [place] [address]709-29-2025 15:37-0400 Respiratory rate20 /minLisa Aichholz [employer] Work Phone: [phone])[address]09-29-2025 15:37-0400 SaO2% (BldA) [Mass fraction]92 %Mckayla Aichholz [employer] Work Phone: [phone])[address]09-29-2025 15:37-0400 Systolic blood hwumfnqy077 mm[Hg]Mckayla Aichholz [employer] Work Phone: [phone])[address]07-24-2025 09:48-0400 Body exqets969.2 Reji Souza MD Work Phone: [facility] HealthRqfmbftjrf28-15-5433 09:48-0400Body mass index (BMI) [Ratio]56.38 kg/s8QgdhbRain Souza MD Work Phone: noThe Rehabilitation InstituteQlixmnmsvj20-61-7250 09:48-0400Body .29 kgRain Souza MD Work Phone: [facility] HealthBjehktvllr59-12-9101 09:48-0400Diastolic blood ectmowyy77 mm[Hg]Rain Souza MD Work Phone: [facility] HealthLbifwxtlzs77-21-5284 09:48-0400Heart rate72 /min Rain Souza MD Work Phone: [facility] HealthVrzwjszhwm32-73-9751 09:48-0400Respiratory rate16 /minRain Souza MD Work Phone: [facility] HealthZnzykyvpci65-36-3741 09:48-4651EsO3% (BldA) [Mass fraction]84 %Rain Souza MD Work Phone: [facility] HealthDvdvhguptd05-22-5541 09:48-0400Systolic blood ykuvrayr027 mm[Hg]Rain Souza MD Work Phone: [facility] HealthThxbwkzzbr32-98-7295 18:11-0400Body mass index (BMI) [Ratio]58.64 kg/m2Lisa Wan [employer] Work Phone: [facility] HealthGcdbtbbpgs78-58-5191 18:11-0400Body temperature 98.49 [degF]Mckayla Wan [employer] Work Phone: [facility] HealthWpbwgmizpw56-41-6502 18:11-0400Body .83 kgLisa Juanjosehmariyaz [employer] Work Phone: [facility] HealthQzbnyoupob09-49-2996 18:11-0400Diastolic blood rlvpirnb46 mm[Hg]Mckayla Chetz [employer] Work Phone: [facility] HealthCdfailjttn97-85-7501 18:11-0400Heart rate81 /min Mckayla Chetz [employer] Work Phone: [address] [address]Pamzopnegd36-85-0932 18:11-0400Respiratory rate20 /minLisa Chetz [employer] Work Phone: [address] [address]Vhmaplrjos64-53-0659 18:11-4607BoS1% (BldA) [Mass fraction]90 %Mckayla Chetz [employer] Work Phone: [facility] HealthZfopxyxdbt85-28-2247 18:11-0400Systolic blood votufhnz416 mm[Hg]Mckayla Rosenbergz [employer] Work Phone: [facility] HealthEqtqijdehm43-30-7722 10:19-0400Body temperature 98.01 [degF]Mckayla Harshadholz [employer] Work Phone: [facility] HealthMwtkigreuj78-38-9661 10:19-0400Diastolic blood qymdrmnz15 mm[Hg]Mckayla Harshadholz [employer] Work Phone: [facility] HealthVonltjggot65-12-8747 10:19-0400Heart rate71 /min Mckayla Chetz [employer] Work Phone: [facility] HealthGirjyknbtm67-75-9335 10:19-0400Respiratory rate20 /minLisa Patriciaholz [employer] Work Phone: [facility] HealthKxbkunnxci79-96-0519 10:19-4768JrG7% (BldA) [Mass fraction]88 %Mckayla Rosenbergz [employer] Work Phone: [facility] HealthJzqnzwlsoz83-55-5769 10:19-0Systolic blood wozdftvr123 mm[Hg]Mckayla Rosenbergz [employer] Work Phone: [facility] HealthRvvrucjvsz60-69-3812 14:11-0400Body xlxhea508.2 Brianisa Harshadholz PRO[employer] Work Phone: [facility] HealthClskbafjrh36-44-2957 14:11-0400Body mass index (BMI) [Ratio]56.51 kg/m2Lisa Harshadholz [employer] Work Phone: [facility] HealthVhpzzxekfw73-64-3572 14:11-0400Body temperature 98.71 [degF]Mckayla Patriciaholz [employer] Work Phone: [facility] HealthBdssgareny62-25-5613 14:11-0400Body yxrito223.66 kgLisa Juanjosehholz [employer] Work Phone: [facility] HealthUxrrwhitbq78-70-3039 14:11-0400Diastolic blood spuyzhex79 mm[Hg]Mckayla Blas [employer] Work Phone: [facility] HealthYivhidhauz17-94-5787 14:11-0400Heart rate75 /min Mckayla Blas [employer] Work Phone: noThe Rehabilitation InstituteWyfrmdoymw58-63-0905 14:11-0400Respiratory rate18 /minLisa Blas PRO[employer] Work Phone: noThe Rehabilitation InstituteLzcytdorlu32-69-6307 14:11-9478YaZ8% (BldA) [Mass fraction]90 %Mckayla Blas [employer] Work Phone: [facility] HealthGtubsdylqp85-97-3204 14:11-0400Systolic blood mm[Hg]Mckayla Blsa [employer] Work Phone: [facility] HealthMxgqnftugy07-59-0915 11:21-0400Body arvovh499.2 Reji Souza MD Work Phone: [facility] HealthOebaybbrlg19-53-6313 11:21-0400Body mass index (BMI) [Ratio]55.91 kg/n6BxcxpRain Souza MD Work Phone: [phone] HealthLaasltffvx06-25-2664 11:21-0400Body plbzat227.93 kgRain Souza MD Work Phone: [facility] HealthQftwtgrckq97-04-6773 11:21-0400Diastolic blood tlxfhhoz54 mm[Hg]Rain Souza MD Work Phone: [facility] HealthOjvynbosgy16-27-8419 11:21-0400Heart rate70 /min Rain Souza MD Work Phone: [facility] HealthDhkycsrevq28-85-3666 11:21-0400Respiratory rate16 /minRain Souza MD Work Phone: [facility] HealthMleiuyybbg83-63-2286 11:21-5319GqR9% (BldA) [Mass fraction]91 %Rain Souza MD Work Phone: [facility] HealthEbfjhefier62-18-6387 11:21-0400Systolic blood bialpzla356 mm[Hg]Rain Souza MD Work Phone: noThe Rehabilitation InstituteNusvjoikys57-91-6820 17:44-0500Body mass index (BMI) [Ratio]57.31 kg/m2Mckayla Blas [employer] Work Phone: noThe Rehabilitation InstituteDlqsindbip12-89-7951 17:44-0500Body temperature 98.01 [degF]Mckaylajuvenal Blas PRO[employer] Work Phone: [facility] HealthXfsjmzdhfw79-73-8461 17:44-0500Body qwuulc304.97 kgMaria De Jesus Wan PRO[employer] Work Phone: [facility] HealthDjypkmlkdc12-09-5615 17:44-0500Diastolic blood sdyltsau52 mm[Hg]Mckayla Wan [employer] Work Phone: [facility] HealthUmnmxjpmkk04-21-8103 17:44-0500Heart rate83 /min Mckaylajuvenal Blas PROGRAM CO[employer] Work Phone: [facility] HealthNawfpofict62-69-0250 17:44-0500Respiratory rate18 /minLi Wan [employer] Work Phone: [facility] HealthHkwtxhcyhm83-41-5299 17:44-3872RjF4% (BldA) [Mass fraction]91 %Mckayla Wan [employer] Work Phone: [facility] HealthOqrcuaxjyw36-61-8827 17:44-0500Systolic blood ptkiaafg734 mm[Hg]Mckaylajuvenal Blas [employer] Work Phone: [facility] HealthCuyimikeql97-59-5023 10:00-0500Blood Pressure LocationPatricezra ARAUZ [facility] [place] [address]592-04-2024 10:00-0500Diastolic blood ldaxfbdv40 mm[Hg]Elbert ARAUZ [facility] [place] [address]592-04-2024 10:00-0500Heart rate76 /minPatrick ARAUZ [facility]-2024 10:00-0500Systolic blood cddhwgjo228 mm[Hg]Elbert ARAUZ [facility] [place] [address]181-19-2024 10:20-0500Body ealnzj324.2 Reji Souza MD Work Phone: [address] [place], [place] [address]Aoxdcfidtc75-44-3123 10:20-0500Body mass index (BMI) [Ratio]56.7 kg/o4BoxxkRain Souza MD Work Phone: [facility] HealthBshkwlzrpi57-41-9499 10:20-0500Body bnawlk597.2 kgRain Souza MD Work Phone: [facility] HealthLkaszmsvpt08-91-1989 10:20-0500Diastolic blood fwelvyha12 mm[Hg]Rain Souza MD Work Phone: [phone] [place], [place] [address]Ynqzcemivm91-92-8319 10:20-0500Heart rate72 /min Rain Souza MD Work Phone: [place] [address]Kmspxqywjn63-32-1184 10:20-0500Respiratory rate16 /minRain Souza MD Work Phone: [place] [address]Zbvrmerxyz20-62-0213 10:20-0500Systolic blood wsoseras296 mm[Hg]Rain Souza MD Work Phone: [facility] HealthMkrfclarpa34-82-8788 10:27-0400Body higfme054.1 Jamal Blas [employer] Work Phone: [facility] HealthHxdmnrdmur56-82-7604 10:27-0400Body mass index (BMI) [Ratio]61.01 kg/m2Mckayla Blas [employer] Work Phone: [facility] HealthBytqmanvcy69-37-8631 10:27-0400Body temperature 98.49 [degF]Mckayla Blas PRO[employer] Work Phone: [facility] HealthBcweurvmoy45-12-9397 10:27-0400Body owazft086.29 kgMckayla Blas PRO[employer] Work Phone: [facility] HealthNxgursokxe78-57-6421 10:27-0400Diastolic blood kqawjziv73 mm[Hg]Mckayla Blas [employer] Work Phone: [facility] HealthPsdncmiigu41-76-4990 10:27-0400Heart rate77 /min Mckayla Blas PRO[employer] Work Phone: [facility] HealthGxcnckxtfb11-39-5237 10:27-0400Respiratory rate19 /minMckayla Blas PRO[employer] Work Phone: [facility] HealthWnriffycxb92-90-3858 10:27-6955LgS7% (BldA) [Mass fraction]92 %Mckayla Blas PRO[employer] Work Phone: noThe Rehabilitation InstituteRfpgkclqxa97-79-2604 10:27-0400Systolic blood ejqkwjsy589 mm[Hg]Mckayla Blas [employer] Work Phone: [facility] HealthUperlbmmgw06-66-1594 15:00-0400Body .18 cmAbdul Tico Other [facility] [employer] Other 221299-60-7803 15:00-0400Body kqrczqfxhce76.6 [degF]Stephanie Tico Other [employer] Other 367154-44-8727 15:00-0400Diastolic blood zloffuex06 mm[Hg] Stephanie Tico Other [employer] Other 08-31-2022 15:00-0400Respiratory rate20 /minAbdul Tico Other [employer] Other 08-31-2022 15:00-0946TnD7% (BldA) [Mass fraction]91 % Stephanie Tico Other [employer] Other 08-31-2022 15:00-0400Systolic blood aglqkftc349 mm[Hg] Stephanie [facility]ico Other [facility] [employer] Other 08-15-2022 09:20-0400Body jzxihb594.18 cmAbdul Tico Other [place] [employer] Other 08-15-2022 09:20-0400Body keinsmozsoh53.5 [degF]Stephanie Tico Other [employer] Other 08-15-2022 09:20-0400Diastolic blood obxifkfo99 mm[Hg] Stephanie Tico Other [employer] Other 08-15-2022 09:20-0400Respiratory rate20 /minAbdul Tico Other [place] [employer] Other 08-15-2022 09:20-0503ZiD2% (BldA) [Mass fraction]91 % Stephanie Tico Other [employer] [employer] Other 08-15-2022 09:20-0400Systolic blood puyngxzk207 mm[Hg] Stephanie Tico Other [employer] Other 08-01-2022 10:24-0400Blood Pressure LocationElbert REGLA [facility] 08-01-2022 10:24-0400Diastolic blood shouebol88 mm[Hg] Elbert ARAUZ [facility] 08-01-2022 10:24-0400Heart rate70 /minPatrick ARAUZ [facility] 08-01-2022 10:24-0400Respiratory rate16 /minPatrick REGLA [facility] 08-01-2022 10:24-0400Systolic blood fkpokcff149 mm[Hg] Elbert ARAUZ [facility] Encounters Encounter DateEncounter TypeCare ProviderFacilityStart: 02-26-7113ebxovqenketoo Urias DPMFacility:Ortho/Sport MedStart: 04-29-2025 End: 18-33-1421msnvsswkpdLpuaCarol Blas NP-C Work Phone: -[facility] ClydeStart: 04-29-2025 End: 42-95-5900Hogncvt encounter procedureMckayla Blas NP-C-[facility] [place] Work Phone: Start: 04-23-2025 End: 70-09-1710rfhnpwrcgtSymxtmlAlma Kellogg MDFacility:[facility] Start: 04-17-2025 End: 60-58-6239tgrlfykztpYysq Jo Aichholz RIG OPERATOR-CNPFacility:[facility]althtart: 04-06-2025 End: 40-33-4270tykdvkeqazRnbbCarol Blas NP-C Work Phone: [facility] Work Phone: Start: 04-06-2025 End: 41-49-8344Jtuuuli encounter procedureMckayla Blas NP-C-[facility] Work Phone: Start: 56-69-8256Cgkaqww encounter procedureMckayla Blas PROGRAM COORDINATOR [employer]-C Work Phone: [facility]art: 98-82-9289Rfm- patient / Non-visitFlynn Urias DPM-[facility] Work Phone: Start: 03-51-2747Nhh-patient / Non-visitPrice Ramsey DO-[facility] Work Phone: Start: 00-37-9618tnapzdjvszSpxepa Nas Rojas RIG OPERATOR-SPEECH/LANGUAGE THERAPIST [facility]: 03-23-2025 End: 18-52-9925zxumjjouolZzaqr Jon Johnson DPMFacility:[facility] Start: 03-11-2025 End: 10-50-5470mrjtfttcstMwzjn Huey Urias DPMFacility: [facility]trStart: 03-09-2025 End: 21-64-4435ZvvtwiBdpu Aichholz PROGRAM COORDINATOR [employer] Work Phone: noMS [facility] FMComment on above:Tobacco user; Encounter for smoking cessation counselingStart: 01-29-2025 End: 57-10-5682Inzxxa Jack Souza MD Work Phone: noms ENDOCRINOLOGYStart: 01-29-2025 End: 39-44-1092Irfgywashley Souza MD Work Phone: noms ENDOCRINOLOGYStart: 01-29-2025 End: 86-95-5753Fmdogqzaw Result EncounterGeneric External Data ProviderNOMS External Department UnsolicitedStart: 01-29-2025 End: 48-18-7492cewrsuihrxKUNZX F SABBAGHNot AvailableStart: 01-29-2025 End: 50-24-6438Xqfkxn outpatient visit 25 minutesRain Souza MD Work [...] index (BMI) of50.0 to 59.9 in adult ([facility])Start: 01-26-2025 End: 46-25-4033cciecexgatNBCQ AICHHOLZNot AvailableStart: 01-26-2025 End: 82-63-5376Htljyny encounter Marcela Blas NP Work Phone: noms CW FMComment on above:Encounter for subsequent annual wellness visit (AWV) in Medicare patient (Primary Dx); Mixed hyperlipidemia ; Type 2 diabetes mellitus with complication, with long-term current use of insulin ([facility]); Bilateral lower extremity edema; Gastro-esophageal reflux disease without esophagitis; Chronic diastolic heart failure ([facility]); Primary hypertension ; Pulmonary hypertension ([facility]); Diabetic polyneuropathy associated with type 2 diabetes mellitus ([facility]); Pulmonary emphysema, unspecified emphysema type ([facility]); Moderate persistent asthma without complication ([facility]); Insomnia; Non-seasonal allergic rhinitis, unspecified trigger; Type 2 diabetes mellitus with unspecified complications ([facility]); Anxiety and depression ; Antibiotic-induced yeast infection; Chronic obstructive pulmonary disease, unspecified (HCC); Hyperlipidemia, unspecified ; Vaginal yeast infection; Morbid (severe) obesity due to excess calories ([facility])Start: 01-06-2025 End: 40-13-7718mslzsrqfreYATNJRJPremier Health [facility] Northtart: 12-18-2024 End: 16-07-5189ZrtdpuVpnb Aichholz PROGRAM COORDINATOR [employer] Work Phone: noms CW FMComment on above:Hyperlipidemia, unspecified ; Tobacco user; Encounter for smoking cessation counselingStart: 12-09-2024 End: 32-77-6759Ccxknyashley Blas PROGRAM COORDINATOR [employer] Work Phone: noms CWM FMStart: 12-09-2024 End: 06-55-1845Luwldsyousif Blas NP Work Phone: noms CWM FMStart: 12-09-2024 End: 52-27-1246jxjwjttcfhELGB AICHHOLZNot AvailableStart: 12-09-2024 End: 88-65-2324Zhvyyx outpatient visit 25 minutesMckayla Blas PROGRAM COORDINATOR [employer] Work Phone: noms [facility] FMComment on above:Cellulitis of left lower extremity (Primary Dx); COPD exacerbation (CMS/HCC); Primary hypertension (CMS/HCC); Pulmonary hypertension (CMS/HCC); Morbid (severe) obesity due to excess calories ([facility]/HCC); Type 2 diabetes mellitus with complication, with long-term current use of insulin ([facility]/HCC); Anxiety and depression ([facility]); Fever, unspecified fever causeStart: 12-04-2024 End: 24-88-4850Anejsusol Result EncounterGeneric External Data ProviderNOMN External Department UnsolicitedStart: 12-04-2024 End: 10-81-1991Reboccyjm Result EncounterGeneric External Data ProviderNOMN External Department UnsolicitedStart: 10-27-2024 End: 68-28-2864hdkatcugpyNKZY AICHHOLZNot AvailableStart: 10-27-2024 End: 79-75-4245Hcrckf outpatient visit 25 minutesMckayla Blas PROGRAM COORDINATOR [employer] Work Phone: noMS [facility] FMComment on above:Primary hypertension (CMS/HCC) (Primary Dx); Diabetic polyneuropathy associated with type 2 diabetes mellitus ([facility]/HCC); Chronic diastolic heart failure ([facility]/HCC); Bilateral lower extremity edema; Morbid (severe) obesity due to excess calories ([facility]/HCC); Type 2 diabetes mellitus with complication, with long-term current use of insulin ([facility]/HCC); Anxiety and depression ([facility]/HCC); Cigarette nicotine dependence without complication; Encounter for screening mammogram for malignant neoplasm of breast; Insomnia; Non-seasonal allergic rhinitis, unspecified trigger; Type 2 diabetes mellitus with unspecified complications; Vitamin D deficiency, unspecified; Gastro-esophageal reflux disease without esophagitis; PAD (peripheral artery disease) ([facility]/HCC); Gastroesophageal reflux disease, unspecified whether esophagitis present; Venous ulcer of right leg ([facility]/HCC)Start: 10-21-2024 End: 02-21-8701YchskuJckl Aichholz PROGRAM COORDINATOR [employer] Work Phone: noms CWM FMComment on above:Chronic obstructive pulmonary disease, unspecifiedStart: 10-08-2024 End: 06-52-0507Fhpxyindb Result EncounterLisa Blas PROGRAM COORDINATOR [employer] Work Phone: noms External Department UnsolicitedStart: 10-08-2024 End: 94-66-6631Qaszvvpxj Result EncounterLisa Blas PROGRAM COORDINATOR [employer] Work Phone: noms External Department UnsolicitedStart: 10-08-2024 End: 42-94-9900Mrpwzt outpatient visit 25 Adolfo Souza MD Work [...] of50.0 to 59.9 in adultStart: 10-08-2024 End: 63-60-7230dyzrfejdszVTUZC F SABBAGHNot AvailableStart: 08-27-2024 End: 45-73-6597Rqywqh outpatient visit 25 minutesMckayla Wan SCHAEFER Work [...] complication, with long-term current use of insulin ([facility]); Tobacco user; Mixed hyperlipidemia ([facility]); Gout, unspecified cause, unspecified chronicity, unspecified site; Vitamin deficiency; Gastro-esophageal reflux disease without esophagitis; Edema, unspecified; Edema; Hyperlipidemia, unspecified ([facility]); Encounter for smoking cessation counseling; Venous ulcer of right leg ([facility]); Antibiotic-induced yeast infectionStart: 08-27-2024 End: 64-32-3355yfywhxrzxbCQJX AICHHOLZNot AvailableStart: 08-27-2024 End: 39-32-8026Csxocuxos Result EncounterGeneric External Data ProviderNOMS External Department UnsolicitedStart: 08-27-2024 End: 50-78-1529Fvgxywkpu Result EncounterGeneric External Data ProviderNOMS External Department UnsolicitedStart: 08-08-2024 End: 08-06-2149jlgnjkdpvoTIIWXWooster Community Hospitaltart: 07-17-2024 End: 99-78-1788HqxpmnXzrb Aichholz PROGRAM COORDINATOR [employer] Work Phone: noms CWM FMStart: 07-14-2024 End: 31-96-3555Zwetga outpatient visit 25 [facility] hospitalM[facility]la [facility] NP Work Phone: noms CWM FMComment on above:Primary hypertension ([facility]) (Primary Dx); Diabetic polyneuropathy associated with type 2 diabetes mellitus ([facility]); Pulmonary emphysema, unspecified emphysema type ([facility]); Critical limb ischemia of right lower extremity ([facility]); PAD (peripheral artery disease) ([facility]); Gastroesophageal reflux disease, unspecified whether esophagitis present; Bilateral lower extremity edema; Venous ulcer of right leg ([facility]); Type 2 diabetes mellitus with complication, with long-term current use of insulin ([facility]); Tobacco user; Encounter for smoking cessation counseling; Kidney stone; Adrenal mass 1 cm to 4 cm in diameter ([facility]); Radiculopathy, lumbar region; Non-seasonal allergic rhinitis, unspecified trigger; Type 2 diabetes mellitus with unspecified complications ([facility])Start: 07-14-2024 End: 50-05-6148qptfmihjnzTPAL AICHHOLZNot AvailableStart: 07-05-2024 End: 45-05-6199GttpkmQoyl Chetz PROGRAM COORDINATOR [employer] Work Phone: noms [facility] FMComment on above:Bilateral lower extremity edemaStart: 06-11-2024 End: 12-80-5190ponjxwvjihRtgslob R WATERSFacility:EU SanduskyStart: 06-11-2024 End: 30-69-0706Huafvyb encounter procedurePanaomy ARAUZ [facility] [place] Start: 05-27-2024 End: 52-01-7175Hvkmgj Jack Souza MD Work Phone: noms ENDOCRINOLOGYStart: 05-27-2024 End: 32-15-7224Fnxflhyousif Souza MD Work Phone: noms ENDOCRINOLOGYStart: 05-27-2024 End: 91-52-5977eutlinkrfgBVITM F SABBAGHNot AvailableStart: 05-27-2024 End: 44-82-4496Krslok outpatient visit 25 minutesRain Souza MD Work Phone: noms ENDOCRINOLOGYComment on above:Type 2 diabetes mellitus with hyperglycemia, with long-term current use of insulin (CMS/[facility]) (Primary Dx); Encounter for dietary consultation; Vitamin D deficiency; Primary hypertension (CMS/HCC); Insulin long-term use (CMS/HCC); Hyperlipemia, mixed (CMS/HCC); Microalbuminuria; Class 3 severe obesity due to excess calories with serious comorbidity and body mass index (BMI) of50.0 to 59.9 in adult (CMS/HCC)Start: 05-12-2024 End: 47-63-8958Vidklhetf Result EncounterGeneric External Data ProviderNOMS External Department UnsolicitedStart: 05-12-2024 End: 65-51-0049Ougztcwbb Result EncounterGeneric External Data ProviderNOMS External Department UnsolicitedStart: 20-42-6546cximyuhcgsSPYLXPAH E SILVIA Facility:EU [place]Start: 04-24-2024 End: 09-86-0514Dxhrqkdwi Result EncounterGeneric External Data ProviderNOMS External Department UnsolicitedStart: 04-24-2024 End: 59-58-4660Hehvmcbep Result EncounterGeneric External Data ProviderNOMS External Department UnsolicitedStart: 04-14-2024 End: 24-51-1452Qkfamr flowsheetMckayla Blas PROGRAM COORDINATOR [employer] Work Phone: noms CWM FMStart: 04-14-2024 End: 97-13-6547Ozztvm flowsheetMckayla Blas PROGRAM COORDINATOR [employer] Work Phone: noms CWM FMStart: 04-14-2024 End: 10-01-4822Neglpr outpatient visit 25 minutesLisa Blas PROGRAM COORDINATOR [employer] Work Phone: noms CWM FMComment on above:Primary [...] Tobacco user; Hyperpigmentation of skinStart: 04-14-2024 End: 10-57-8481mrazdzltrxQBIB JUANJOSEHHOLZNot AvailableStart: 04-05-2024 End: 03-29-6785CivdafGtbc Aichholz PROGRAM COORDINATOR [employer] Work Phone: noms CWM FMComment on above:Hyperlipidemia, unspecified (CMS/HCC); Bilateral lower extremity edemaVitamin D deficiency, unspecifiedStart: 22-67-8271Gzkmvhl encounter procedureRain Souza MD Work Phone: noms HealthcareStart: 12-14-2023 End: 03-90-0079Ygnixvpco Result EncounterLisa Wan PROGRAM CO[employer]INATOR [employer] Work Phone: noms External Department UnsolicitedStart: 12-14-2023 End: 54-62-9192Jjrfdegwh Result EncounterLisa Harshadholz PROGRAM COORDINATOR [employer] Work Phone: noms External Department UnsolicitedStart: 08-31-2023 End: 02-39-0286Lybfqvhlh Result EncounterAmy Cari PA Work Phone: noms External Department UnsolicitedStart: 08-31-2023 End: 65-39-0935Jblkbmpfb Result EncounterAmy Cari MAYERS Work Phone: noms External Department UnsolicitedStart: 08-17-2023 RefillLisa Rosenbergz PROGRAM COORDINATOR [employer] Work Phone: noms CWM FMComment on above:Vaginal yeast infection (Primary Dx)Start: 20-27-8871TxrqyvWwxl Aichdallin PROGRAM COORDINATOR FOR [employer] Work Phone: NOAW CWM FMComment on above:Type 2 diabetes mellitus with unspecified complications (CMS/HCC); Edema, unspecified; EdemaStart: 76-33-5813wbshyqtpxpSIFDMJMILQTT LAKSHMIPATHY .Facility:T5Umliq: 12-05-2022 End: 56-03-0663Fuddkvokiq and management of inpatientJESSICA ALONDRA .Facility:H1 Start: 11-23-2022 End: 68-62-3219okwxvjdxztWRP MCKAYLA AICHHOLZFacility:E8Aubos: 11-22-2022 End: 90-98-0936egpgkhvvcqJEC MCKAYLA AICHHOLZFacility:X6Bfjsr: 11-17-2022 End: 12-73-1511vyzqrjigygXTZSXWF HALKER .Facility:M9Kpcmo: 11-15-2022 End: 67-39-0585Agifrvi encounter procedureJENNIFER E SILVIA [facility] start: 10-05-2022 End: 07-13-3677ftwkaqwdvcAYELUR DIAB .Facility:F0Ztkey: 09-21-2022 End: 83-93-4938zbgjmpmrjtBXX MCKAYLA BLASFacility:J7Wpybk: 62-24-2461jeulerperg COMFORT CULLENFacility:Y6Csynn: 08-24-2022 End: 05-72-8503zbmsxlvwenBQ CHAPARRO S MORTENSEN .Facility:F1Lcusy: 08-21-2022 End: 47-40-0920ghdxzagkfcQUOCX D [facility]:O8Qdtnt: 07-27-2022 End: 04-51-6024wbmalduglcGAZC TAMLYN .Facility:F3Hvbwy: 07-18-2022 End: 07-55-4267qdvpkzearsKMTZ TAMLYN .Facility:C5Byicg: 07-18-2022 End: 30-31-7720qtzmqypefdPEDAQ D [facility]:T8Sdjti: 07-06-2022 End: 38-68-2162ytyzsurvwqIFV MCKAYLA BLASFacility:B2Qdlyd: 05-11-2022 End: 19-83-9487cyhyycpfqcZFVG VALENZUELA .Facility:Y8Muukj: 04-25-2022 End: 40-08-9109ieuuuizsyuHG CHAPARRO S [place]ORTENSEN .Facility:E1Mwswa: 04-20-2022 End: 89-03-7819yuictsslhzYJLU VALENZUELA .Facility:Y4Etqlh: 03-08-2022 End: 31-75-5975dlrwpfjnqzKnjme Tico Other [employer] Other Start: 21-64-0390Ulhalg outpatient visit 15 minutes Stephanie QadirFPG NephrologyStart: 03-03-2022 End: 75-21-6836kdqhetsqjrYAM MCKAYLA Laucility:Q1Mykim: 02-20-2022 End: 87-79-6981ejovkuysueMihln Tico Other [employer] Other Start: 36-61-0887Pmxapn outpatient new 45 minutesAbdul QadirFPG NephrologyStart: 02-06-2022 End: 42-28-6714Znaiqbm encounter procedureElbert Mahnaz REGLA [facility] Wilfredo start: 01-19-2022 End: 28-88-4274jsvtksjyobDUCZ SOLIS .Facility:A0Cxerw: 12-24-2021 End: 92-66-7581umbijjgjizWKOZU PARKERFacility:D3Ftkhy: 08-26-2020 End: 07-35-2051Biyftyu encounter procedureVITHAL SHENDGEFacility:UTMCStart: 10-30-2019 End: 08-98-2568Blvozcxhg department patient visitDONADYA [facility] Centertart: 10-30-2019 End: 19-20-6755Nclshqmzj department patient visitMer[facility] Health [facility] Emergency DepartmentStart: 98-66-7311Xcddmznoshba stateAbdul Tico Other rt [employer] Other Procedures DateProcedureProcedure DetailPerforming ClinicianStart: 65-06-4908LS ECHO DOPPLER COMPLETEGeneric External Data ProviderStart: 24-05-7789Xhip bld gluc mntr dev cleared fda spec home useRain Souza MD Work Phone: Start: 17-39-5855JOUOZ CULTURE 2Generic External Data ProviderStart: 35-11-5677KTBZZ CULTURE 1Generic External Data ProviderStart: 22-47-1676Vxlh bld gluc mntr dev cleared fda spec home useRain Souza MD Work Phone: Start: 39-55-2160PIT UA (CLEAN/CATCH) MICROSCOPIC IF INDICATELisa Wan PROGRAM COORDINATOR [employer] Work Phone: Start: 92-21-4221BWM CBC WITH AUTO DIFFGeneric External Data ProviderStart: 36-76-7550Hszy bld gluc mntr dev cleared fda spec home useRain Souza MD Work Phone: Start: 74-53-0047JT LUMBAR SPINE WO CONGeneric External Data ProviderStart: 84-54-3252NQ ABDOMEN PELVIS W CONGeneric External Data ProviderStart: 48-11-6937WLH CREATININEGeneric External Data ProviderStart: 37-07-2926JLOZRIELY BLOOD PRESSUREGeneric External Data ProviderStart: 93-85-3309OI TOMOSYNTHESIS SCREENING Chyna Blas NP Work Phone: Start: 57-49-3243GoxbjtfftyzZgqsk Sabbagh MD Work Phone: Start: 91-70-6342PVMSY CULTURE 2Generic External Data ProviderStart: 54-81-7070FWRRP CULTURE 1Generic External Data ProviderStart: 22-70-6459RFQ 12-LEADAmy Cari MAYERS Work Phone: Start: 96-32-3969CctbjwldvubNaap Aichholz NP Work Phone: Start: 79-92-2325Bmalyroghnj observation [Identifier] in Cervix by Cyto stainMckayla Blas NP Work Phone: H/O: hysterectomyPatrick ARAUZ Laparoscopic cholecystectomyPatrick ARAUZ Operative procedure on footPatrick ARAUZ Plan of Treatment DateCare ActivityDetailAuthorStart: 02-01-2026 End: 60-87-7449Dgavnzv encounter procedureNOMS CWM FMStart: 07-21-2026Medicare Annual Wellness (AWV)Medicare Annual Wellness (AWV)NOMS HealthcareStart: 16-50-3252Xqbil screening for proteinDiabetes: Urine Protein ScreeningNOMS HealthcareStart: 51-01-1340Rvxlabsir for malignant neoplasm of colonNOMS HealthcareStart: 74-74-7940Mwabqowb screeningDiabetes: Retinopathy ScreeningNOMS HealthcareStart: 05-28-2025 End: 31-12-5813Hncxcvk encounter procedureNOMS SH ENDOCRINOLOGYStart: 05-13-2025 Glaucoma screeningDiabetes: Retinopathy ScreeningST. [facility] HealthcareStart: 74-93-6627Rmykrmvsdz A1c measurementDiabetes: Hemoglobin D5KGSFICarondelet Health Start: 04-29-2025 End: 08-07-8853Hmcxpwv encounter procedureNONORTHWEST [facility] FMStart: 70-91-0051Pbncyxstn vaccinationNOMN HealthcareStart: 01-28-2025 End: 40-52-0235Bzhlmzi encounter uclqvbuwx78/23/2025 10:50 AM EDT Office Visit [facility] [address] [place] [address] Rain Souaz MD [address] [place] [address] [facility] ENDOCRINOLOGYStart: 01-26-2025 End: 94-18-9274Xwexdhw encounter roxlarslc25/21/2025 6:00 PM EDT [facility] [address] [place] [address] Mckayla Blas, PROGRAM COORDINATOR [employer] [address] [place] [address] [facility] FMStart: 07-11-2025Medicare Annual Wellness (AWV) Medicare Annual Wellness (AWV)[facility] HealthcareStart: 25-05-2438Pgowfbjgdu A1c measurementDiabetes: Hemoglobin T4PBRUBCarondelet HealthStart: 12-15-2024 End: 73-48-0767WD Breast - bilateral ScreeningBilateral screening mammogram Imaging Routine Encounter for screening mammogram for malignant neoplasm of breast Expected: 12/15/2024 (Approximate), Expires: 12/27/2025[facility] Work Phone: Comment on above:Expected: 12/15/2024 (Approximate), Expires: 12/27/2025Start: 34-23-0394Sokxvtthm for malignant neoplasm of breast MammogramCarondelet HealthStart: 10-90-1171Asckn screening for proteinDiabetes: Urine Protein ScreeningST. [facility] HealthcareStart: 10-27-2024 End: 19-09-7315Nxaokeh encounter ofclznqnk81/21/2025 2:00 PM EDT [facility] [address] [place] [address] Mckayla Blas NP [address] [place] [address] [facility] FMStart: 10-08-2024 End: 79-38-5934Twnalai encounter bridvwhai47/02/2025 11:20 AM EDT Office Visit [facility] [address] [place] [address] Rain Souza MD [address], [address] [place] [address] [facility] ENDOCRINOLOGYStart: 08-27-2024 End: 56-59-3997Fyenugu encounter aavfmuocc69/19/2025 5:30 PM EST Office Visit [facility] [address] [place] [address] Mckayla Blas, SILVANO [address] [place] [address] [facility] FMStart: 08-27-2024 End: 78-88-274091082649-anhynsupnfsmsx D3 [Mass/volume] in Serum or PlasmaVitamin D 25 hydroxy Lab Routine Vitamin deficiency Expected: 08/27/2024 (Approximate), Expires: 08/27/2025NOMN HealthcareComment on above:Expected: 08/27/2024 (Approximate), Expires: 08/27/2025Start: 48-51-0356Dhfslhbhsz A1c measurement Diabetes: Hemoglobin J7KPFSWThe Rehabilitation InstituteStart: 08-27-2024 End: 06-43-2193Qykwwsb function 2000 panel - Serum or PlasmaHepatic function panel Lab Routine Hyperlipidemia, unspecified (CMS/HCC) Expected: 08/27/2024 (Approximate), Expires: 08/27/2025[facility] HealthcareComment on above:Expected: 08/27/2024 (Approximate), Expires: 08/27/2025Start: 08-27-2024 End: 70-30-3529Jkypz 1996 panel - Serum or PlasmaLipid panel Lab Routine Mixed hyperlipidemia ([facility]/HCC) Expected: 08/27/2024 (Approximate), Expires:08/27/2025 [facility] Healthcare Work Phone: Comment on above:Expected: 08/27/2024 (Approximate), Expires: 08/27/2025Start: 08-27-2024 End: 10-06-3416Qtcmqbyifwta/Creatinine panel in random UrineMicroalbumin / creatinine, urine ratio Lab Routine Primary hypertension ([facility]) Type 2 diabetes mellitus with complication, with long-term current use of insulin ([facility]) Expected: 08/27/2024 (Approximate), Expires: 08/27/2025[facility] Healthcare Comment on above:Expected: 08/27/2024 (Approximate), Expires: 08/27/2025Start: 08-27-2024 End: 50-16-5729Tydig [Mass/volume] in Serum or PlasmaUric acid Lab Routine Gout, unspecified cause, unspecified chronicity, unspecified site Expected: (Approximate), Expires: 08/27/2025[facility] HealthcareComment on above: Expected: 08/27/2024 (Approximate), Expires: 08/27/2025Start: 08-27-2024 End: 27-91-2199Ddjlmmordv complete panel - UrineUrinalysis with reflex microscopic (clean catch) Lab Routine Primary hypertension ([facility]) Type 2 d iabetes mellitus with complication, with long-term current use of insulin ([facility]) Tobacco user Gout, unspecified cause, unspecified chronicity, unspecified site Expected: 08/27/2024 (Approximate), Expires: 08/27/2025[facility] HealthcareComment on above:Expected: 08/27/2024 (Approximate), Expires: 08/27/2025Start: 08-26-2024 End: 31-61-9872Mjhxilf encounter egsrrjcyo19/18/2025 10:30 AM EST Office Visit [facility] [address] [place] [address] Rain Souza MD [address], [address] [place] [address] [facility] ENDOCRINOLOGYStart: 07-14-2024 End: 13-57-6383Tlhssaa encounter xqptzghcy87/06/2025 6:30 PM EST Office Visit [facility] FM [address] [place] [address] Mckayla Blas, SILVANO [address] [place] [address] [facility] FMStart: 07-14-2024 End: 99-70-7951Pxflkpk encounter szoypdhvg85/06/2025 10:10 AM EST Office Visit [facility] [address] [place] [address] Rain Souza MD [address], [address] [place] [address] [facility] ENDOCRINOLOGYStart: 34-39-0563Hhzruhqqe vaccinationInfluenza Vaccine (#1)NOMS HealthcareComment on above:Postponed from 03/09/2024 (Patient Refused)Start: 05-27-2024 End: 76-42-0282Htqhnjp encounter /19/2024 9:50 AM EST Office Visit [facility] [address] [place] [phone] Rain Souza MD [address] [place] [address] [facility] ENDOCRINOLOGYStart: 45-66-8112Dsdtcujeis A1c measurementDiabetes: Hemoglobin I5JBPLX HealthcareStart: 05-15-2024 End: 97-87-6589Xzbll mcrjipypqpa56/07/2024 Abstract [facility] [address] [place] [address] Rain Souza MD [address] [place] [address] NOMALVIN J. [facility] ENDOCRINOLOGYStart: 05-15-2024 End: 93-66-8613Crbisfe encounter wvhyxoatp45/07/2024 11:20 AM EST Office Visit [facility] [address] [place] [address] Rain Souza MD [address], [address] [place] [address] [facility] ENDOCRINOLOGYStart: 04-17-2024 End: 58-56-9009Wieyeds encounter uxehrwvcy98/10/2024 3:40 PM EDT Office Visit [facility] [address] [place] [address] Mckayla Blas, SILVANO [address] [place] [address] [facility] FMStart: 04-14-2024 End: 67-82-6436Ffzkppu encounter mrhjwxwuf85/07/2024 11:00 AM EDT Office Visit [facility] [address] [place] [address] Mckayla Blas, PROGRAM COORDINATOR [employer] [address] [place] [address] ArrivedNOMN CW FMComment on above:ArrivedStart: 03-09-2024 Influenza vaccinationInfluenza Vaccine (#1)[facility] HealthcareStart: 02-19-2024 Hemoglobin A1c measurementDiabetes: Hemoglobin A9ZSGEW HealthcareStart: 20-76-5486Lcike screening for proteinDiabetes: Urine Protein ScreeningNOMN HealthcareStart: 28-78-4256Cilvdewsi for malignant neoplasm of breastMammogram [facility] HealthcareStart: 10-15-2023 End: 04-87-8320Yxnsskc encounter uyityfgie47/08/2024 4:30 PM EDT Office Visit [facility] [address] [place] [address] Mckayla Blas, SILVANO [address] [place] [address] [facility] FMStart: 10-89-7312Ucwzmuhlbu A1c measurement Diabetes: Hemoglobin T8RIGBY HealthcareStart: 18-73-8470Vzubzrbv screening Diabetes: Retinopathy ScreeningNOMN HealthcareStart: 30-40-4840Ddwkrzwur vaccinationFlu vaccine (Season Ended)[facility]: 10-07-2018 Screening for malignant neoplasm of cervixNOMN HealthcareStart: 82-68-5410Nczig panelLipid screenMarietta Memorial Hospital: 62-51-9060Jwzfhsffw for malignant neoplasm of cervixHPV/CotestNOMN HealthcareStart: 66-34-1320Rdufyrwbv for malignant neoplasm of cervixCervical cancer screenMarietta [facility] Hospital: 05-29-6455NTnR/Tdap/Td vaccine (1 - Tdap)DTaP/Tdap/Td vaccine (1 - Tdap)[facility]: 28-03-1413LMZ screeningHIV screenMarietta Memorial Hospital: 02-17-1971Medicare Annual Wellness (AWV)Medicare Annual Wellness (AWV)[facility] HealthcareStart: 01-39-5432Dscefpykz for malignant neoplasm of colonNOMS HealthcareBLOOD CULTURE 1BLOOD CULTURE 1 Lab Routine 12/04/2024 4:44 PM EDTNOMN HealthcareBLOOD CULTURE 2BLOOD CULTURE 2 Lab Routine 12/04/2024 5:28 PM EDTNOMN Healthcare Immunizations Immunization DateImmunizationNotesCare DegekjvwCjmckama67-41-8113idkhgockt, injectable, quadrivalent, contains preservativeMckayla Blas PROGRAM COORDINATOR [employer] Work Phone: NOThe Rehabilitation InstituteDnxyciwvna68-83-1088aqdbiglss virus vaccine, unspecified formulationRain Souza MD Work Phone: [facility]01-11-2022SARS-CoV-2 (COVID-19) mRNA BNT-162b2 vaxJENNIFER SILVIA [facility]04-22-2021SARS-CoV-2 (COVID-19) mRNA BNT-162b2 vaxJENNIFER SILVIA [facility]04-02-2021SARS-CoV-2 (COVID-19) mRNA BNT-162b2 vaxJENNIFER SILVIA [facility]10-09-2017influenza virus vaccine, H5N1, A/ (national stockpile)Mckayla Blas PROGRAM COORDINATOR [employer] Work Phone: [facility] HealthLnhylqaayu95-70-4706fmtwqassq virus vaccine, unspecified formulationRain Souza MD Work Phone: NOThe Rehabilitation InstitutePuxdlszsjg96-74-3323vvskbbgue, unspecified formulationPatrick ARAUZ [facility] [place] [address]180-09-2017pneumococcal polysaccharide vaccine, 23 Morgan Souza MD Work Phone: NOThe Rehabilitation InstituteZuwapphyet11-14-2786mxnfzpnho virus vaccine, H5N1, A/ (national stockpile)Mckayla Blas PROGRAM COORDINATOR [employer] Work Phone: NOThe Rehabilitation InstituteCupjhirrhk80-59-2802mjntvojdw virus vaccine, unspecified formulationRain Souza MD Work Phone: noThe Rehabilitation InstituteRwyliclmck85-16-8950fockyzpcl, unspecified formulationPatrick Instapage [facility]10-25-2013influenza virus vaccine, whole virusRain Souza MD Work Phone: NOThe Rehabilitation InstitutePiutrxinep34-46-1715eqhopgyom, injectable, quadrivalent, contains preservativeLisa Aichholz PROGRAM COORDINATOR [employer] Work Phone: NOThe Rehabilitation InstituteTyiaonjqms19-55-2536ruwwpgdwt, wholePatrick ARAUZ [facility]07-24-1998measles, mumps and rubella virus vaccineRain Souza MD Work Phone: [facility] Payers DatePayer CategoryPayerPolicy [id number] 2024Medicare (Managed Care)[id number] Health [id number] [id number] 2019[place]icaid[place] [id number] 2018-Present [phone] [address] [place] [address]Medicaid [id number] 2013Medicare [id number] 2..840.1.043910.3.57[id number] 2.840.1.370147.3.57[id number] 2.16.840.1.123844.3.57[id number] 2.16.840.1.490497.3.57[id number] 2.16.840.1.146202.3.57[id number] 2..840.1.099576.3.57[id number] 2..840.1.493099.3.57[id number] 2.840.1.815863.3.57[id number] 2.840.1.648710.3.57[id number] 2.840.1.067059.3.57[id number] 2.840.1.330598.3.57[id number] 2.840.1.086488.3.57[id number] 2.840.1.958564.3.579.[id number] 2..840.1.007388.3.579.2.25821-56-5360Qjaluqv8404749 2.840.1.390933.3.579.2.42587-98-5974Lrfvjts2882000 2..840.1.198959.3.579.2.53973-40-4579Dlcfddy1202336 2.840.1.659020.3.579.2.40894-57-0861Vaozmxm9124931 2.16.840.1.595635.3.57[id number] 2.840.1.609055.3.579.2.62901-05-5144Jfokflg8322709 2.840.1.630348.3.579.2.08847-53-3997Rscxwtz9226584 2.840.1.014089.3.579.[id number] 2.840.1.735612.3.579.[id number] 2.0.1.492904.3.57[id number] 2.840.1.432542.3.579.2.594535-88-1567Zmaqquu17851165 2.0.1.521328.3.579.2.8[id number] 2..1.208411.3.579.2.163406-88-4875Pincsik1120420 2.840.1.800491.3.579.2.227407-28-3860Fpahzkt6413660 2.0.1.494438.3.579.2.563278-89-6876Jifvoio6077664 2..1.222233.3.579.2.899772-89-2441Sarqfgd8248903 2.0.1.151371.3.579.2.902512-28-4855Swfvjft9587972 2.840.1.046538.3.579.2.928006-76-1240Feuyrno6121206 2.840.1.960864.3.579.2.735636-05-1081Fkyvezr61360716 2..840.1.421442.3.579.2.82231-92-9161Oymneqb09057902 2..840.1.455038.3.579.2.47788-18-5073Qjtauov420746995 2..840.1.876574.3.579.2.20371-80-2665Wdegsoh687281702 2..840.1.798893.3.579.2.0[id number] 2..840.1.553218.3.579.2.72237-84-3714Rargpbs379101101 2..840.1.351821.3.579.2.[id number] 2.840.1.591928.3.57[id number] 2..840.1.249359.3.579.2.39517-59-3465Nxqoonj492488789 2..840.1.802490.3.579.2.196 [id number] 1960Private Health [id number] 2.0.1.864399.19 [id number] [id number] Health InsuranceParkview Health Montpelier [id number] Auto/[id number] Social History DateTypeDetailFacilityStart: 02-17-2014 End: 52-48-0818Kxzsycy smoking status NHISCurrent every day smokerMercy Health- [place], [place]: 33-51-7334Tgrolrg of tobacco useCigarette SmokerM[facility]etta [facility] Hospital: 02-17-2014 End: 92-56-5677Vnjfkneolw smoked current (pack per day) - ReportedMarietta Memorial Hospital: 44-59-9118Rbzfecw intakeCurrent drinker of alcohol (finding)[facility]: 46-04-4467Rqrqskn CommentRareMCherrington Hospital: 93-15-2038Aqm Assigned At BirthNot on filePinehill, KYExposure to SARS-CoV-2 (event)Unable to assessMarietta Memorial Hospital: 47-93-4435Lrwcily smoking statusSmoker (finding)[facility] start: 07-10-2023 End: 69-38-9283Rog Assigned At BirthFemaleExec[facility] of [facility] start: 11-15-2022 End: 82-62-2066Sooazif smoking statusHeavy tobacco smoker (finding)[facility]: 07-10-2023 End: 40-84-3042Twebvgh use and exposureSmokeless tobacco non-userNOMS Healthcare Start: 07-10-2023 End: 91-12-6690Qlubizu intakeLifetime non-drinker (finding)[facility] HealthcareWithin the last year, [...] drinks on 1 occasion?Less than monthlyNOMS HealthcareStart: 96-54-5287Cbx hard is it for you to pay [...] doctor or pharmacy [SILS]RarelyNOMS HealthcareSexFemale (finding)[facility] Start: 50-54-0630Ycq Assigned At [facility] ERNEGATED: Highlighted [facility] Medical Equipment Procedure CodeEquipment CodeEquipment Original TextEquipment IdentifierDates [id number]: 05-84-1027KPW TO TEST BLOOD SUGAR 4 TIMES [id number]: 07-07-2024 Functional Status KkfuWlisuqplpgCupwulTbxlrcsz81-54-3437Mdwmkic Health Questionnaire 2 item (PHQ- 2) [Reported][facility] HealthHnchfduoal68-74-2288Kbojqii falling or staying asleep, or sleeping too muchNot at all 01/26/2025 4:13 PM EDT Mychart, Generic Not at all [facility] HealthBulfvyuafq11-99-4831Xpyhvqu tired or having little energyNot at all 01/26/2025 4:13 PM EDT Mychart, Generic Not at allCarondelet HealthGzjzynopup02-42-0261Tgtq appetite or overeatingNot at all 01/26/2025 4:13 PM EDT Mychart, Generic Not at [facility] CenterAtybmcnzbs42-56-5500Tehbilr bad about yourself-or that you are a failure or have let yourself or your family downNot at all 01/26/2025 4:13 PM EDT Mychart, Generic Not at allCarondelet HealthXogclyofkg89-37-4339Drvmftj concentrating on things, such as reading the newspaper or watching televisionNot at all 01/26/2025 4:13 PM EDT Mychart, Generic Not at [facility] CenterYgvnwnwhdm51-61-4598 Moving or speaking so slowly that other people could have noticed. Or the opposite - being so fidgety or restless that you have been moving around a lot more than usualNot at all 01/26/2025 4:13 PM EDT Mychart, Generic Not at [facility] CenterYhwdknofde98-21-8520Hcmjgzew that you would be better off , or of hurting yourself in some wayNot at all 01/26/2025 4:13 PM EDT Mychart, Generic Not at [facility] CenterSzsmiwflkv00-94-4030Cjjus score [AUDIT-C]1 08/26/2024 6:13 PM EST Mychart, GenericCarondelet HealthTlqpixrotb87-05-4559Dze often do you have a drink containing alcohol?Monthly or less 08/26/2024 6:13 PM EST Mychart, Generic Monthly or lessCarondelet HealthJwqyuqiyio80-67-1552Ikl many standard drinks containing alcohol do you have on a typical day?1 or 2 08/26/2024 6:13 PM EST Mychart, Generic 1 or 2NOMS Lkxjyblhyv23-40-3617Dqk often do you have 6 or more drinks on 1 occasion?Never 08/26/2024 6:13 PM EST Mychart, Generic NeverCarondelet Health 28-85-5811Flidzxiiiw StatusN/AExec[facility]rology of [facility]07-11-2024How difficult have these problems made it for you to do your work, take care of things at home, or get along with other people?Not difficult at all 01/17/2024 10:08 AM EDT Marilyn Rolon MA Not difficult at [facility] CenterWwnutgdobn21-86-5886Darkfvo Health Questionnaire 2 item (PHQ-2) [Reported][facility] HealthUvdrrlgjbg32-08-4377Xbhbrou Health Questionnaire 2 item (PHQ-2) [Reported][facility] HealthFhwrnotpcv40-45-8154Zqfvrnyqvb StatusN/AExec[facility] of [facility] Lopnavvk55-36-5056Iqdmfwlagf StatusN/AExec[facility] Clinical Notes 01-19-2022 to 04-06-2025 Note Date & QqvpOhfgIeylxxtt49-88-6804 Evaluation note* Diagnosis Onset Date Resolution Status [...] use ofacuteOctober 2024 5:50pmVenous insufficiencyacuteOctober 2024 5:50pm [facility] Work Phone: 1(117) 503-819307-30-2025 NotePlease let her know her ECHO showed some improvement in the left side wall thickness, it was severely enlarged, now it is moderate. Important for good BP control to continue to improve this. Everything else looks good. Follow-up as planned in 6 months. Thanks![facility]07-24-2025 History of Present illness Narrative* Rain [...] 96, on lantus 58 units bid, lispro 5-23-56vgwoz plus ISS, Trulicity 4.5 mg weekly. meter give us error during download IM 03/2022 follow up visit on 03/14/2022, A1c in the office 9.4, bg 142, on lantus 58 units bid, lispro 8-26-27nsbmj plus ISS, Trulicity 4.5 mg weekly. lab [...] 25 mg, Oral, 2 times daily HYDROcodone-acetaminophen (Charlotte) 5-325 MG tablet 1 tablet, 3 times [...] Angiomyolipoma Anxiety and depression 07/10/2023 Asthma ([facility]) 07/10/2023 Body mass index (BMI) 50.0-59.9, adult ([facility] Cellulitis of left lower extremity Cervical cancer ([facility]) 09/17/2023 Chronic pain of both knees 09/17/2023 COPD (chronic obstructive pulmonary disease) ([facility]) 07/10/2023 COPD exacerbation ([facility]) 09/17/2023 Decreased functional mobility 09/17/2023 Diabetic neuropathy ([facility]) 07/10/2023 Dietary counseling and surveillance Edema 07/10/2023 Elevated sed rate Elevated WBC count Essential (primary) hypertension GERD (gastroesophageal reflux disease) 09/17/2023 Hyperlipidemia 09/17/2023 Hypertension 07/10/2023 Insomnia 09/17/2023 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 ([facility]) Lower extremity edema 09/17/2023 Mixed hyperlipidemia Morbid (severe) obesity due to excess calories ([facility]) Obstructive sleep apnea 07/10/2023 PAD (peripheral artery disease) 09/17/2023 Pancreatitis ([facility]) 09/17/2023 Pneumonia 09/17/2023 Proteinuria, unspecified Pulmonary hypertension ([facility]) 09/17/2023 Radiculopathy, lumbar region 09/17/2023 Tobacco user 09/17/2023 Type 2 diabetes mellitus with complication, with long-term current use of insulin ([facility]) 07/10/2023 Unilateral primary osteoarthritis, right hip 09/17/2023 [...] D deficiency Primary hypertension Insulin long-term use ([facility]) Hyperlipemia, mixed Microalbuminuria Class 3 severe obesity due to excess calories with serious comorbidity and body mass index (BMI) of50.0 to 59.9 in adult ([facility]) Diet and exercise reviewed with the patient Follow up in about 4 months (around 06/01/2025). 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 * Mckayla Blas NP [...] 25 mg, Oral, 2 times daily HYDROcodone-acetaminophen (Charlotte) 5-325 MG tablet 1 tablet, 3 times [...] Angiomyolipoma Anxiety and depression 07/10/2023 Asthma ([facility]) 07/10/2023 Body mass index (BMI) 50.0-59.9, adult ([facility] Cellulitis of left lower extremity Cervical cancer ([facility]) 09/17/2023 Chronic pain of both knees 09/17/2023 COPD (chronic obstructive pulmonary disease) ([facility]) 07/10/2023 COPD exacerbation ([facility]) 09/17/2023 Decreased functional mobility 09/17/2023 Diabetic neuropathy ([facility]) 07/10/2023 Dietary counseling and surveillance Edema 07/10/2023 Elevated sed rate Elevated WBC count Essential (primary) hypertension GERD (gastroesophageal reflux disease) 09/17/2023 Hyperlipidemia 09/17/2023 Hypertension 07/10/2023 Insomnia 09/17/2023 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 ([facility]) Lower extremity edema 09/17/2023 Mixed hyperlipidemia Morbid (severe) obesity due to excess calories ([facility]) Obstructive sleep apnea 07/10/2023 PAD (peripheral artery disease) 09/17/2023 Pancreatitis ([facility]) 09/17/2023 Pneumonia 09/17/2023 Proteinuria, unspecified Pulmonary hypertension ([facility]) 09/17/2023 Radiculopathy, lumbar region 09/17/2023 Tobacco user 09/17/2023 Type 2 diabetes mellitus with complication, with long-term current use of insulin ([facility]) 07/10/2023 Unilateral primary osteoarthritis, right hip 09/17/2023 [...] Current meds: duoneb, albuterol, daliresp, Asthma ([facility]) Current meds: albuterol, duoneb, 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 Hypertension Please check blood pressure daily and record DASH diet Limit caffeine Take medication as directed Contact office if chest pain, pressure, dizziness, shortness of breath, swelling legs Recommend slow position changes Current meds: hydralazine, lisinopril, Relevant Medications hydrALAZINE (Apresoline) 25 MG tablet lisinopril 20 MG tablet Type 2 diabetes mellitus with complication, with long-term current use of insulin ([facility]) Check blood sugars daily, notify if <70 [...] MG tablet Pulmonary hypertension (HCC) Has seen [facility] Cardiology Hyperlipidemia On statin therapy [...] Morbid (severe) obesity due to excess calories ([facility]) Discussed with patient their BMI [...] EDTAssociated Problem(s): Pulmonary hypertension (HCC) Has seen [facility] Cardiology * Mckayla Blas NP [...] on a yearly basis documented in this encounterCarondelet HealthAdtgznraaq23-62-7749 Instructions* Patient Instructions* Mckayla Blas NP - 01/26/2025 6:00 PM EDT Please call the [facility] to schedule your mammogram: [phone]- ext [phone] documented in this encounterCarondelet HealthBagmwxatnl81-26-3516 NoteCardiovascular Medicine [facility] SUBJECTIVE Chief Complaint Patient presents with Congestive Heart Failure Hypertension Hyperlipidemia Mitzi Macias is a 54 y.o. female here for follow-up. PMHx: HFpEF, HTN, HLD, DM, longstanding heavy smoker, COPD, DANIEL, morbid obesity HPI 01/06/2025 Since last seen she was admitted to [facility] for AMS on 12/05/2024. 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 Vitamin D deficiency, unspecified Vitamin deficiency Past Medical History: Diagnosis Date COPD (chronic obstructive pulmonary disease) (CMS/HCC) Diabetes mellitus ([facility]) Hyperlipidemia Hypertension Sleep apnea Family History Problem [...] , Rfl: ergocalciferol (Vitamin D-2) 1.25 MG (32402 Units) capsule, Take 1.25 mg by mouth., [...] and at bedtime., Disp: , Rfl: HYDROcodone-acetaminophen (Charlotte) 5-325 mg tablet, TAKE 1 TABLET BY MOUTH THREE TIMES A DAY NEEDED FOR PAIN MUST LAST 30 DAYS, Disp: , Rfl: insulin aspart (NovoLOG) 100 unit/mL (3 mL) injection pen, Novolog Flexpen U-100 Insulin aspart 100 unit/mL (3 mL) subcutaneous, Disp: , Rfl: insulin glargine (Lantus Solostar U-100 Insulin) 100 unit/mL (3 mL) injection pen (more content not included)...[facility]07-01-2025 NotePatient is here today for a [...] and weight gain. Cardiovascular: Positive for leg swelling.[facility] 12-09-2024 History of Present illness Narrative* [...] light. She was ultimately taken to [facility] ER, no tox screen was done [...] 25 mg, Oral, 2 times daily HYDROcodone-acetaminophen (Charlotte) 5-325 MG tablet 1 tablet, 3 times [...] CT Albuminuria 09/17/2023 Angiomyolipoma Anxiety and depression ([facility]) 07/10/2023 Asthma 07/10/2023 Body mass index (BMI) 50.0-59.9, adult [place] Cellulitis of left lower extremity Cervical cancer ([facility]) 09/17/2023 Chronic pain of both knees 09/17/2023 COPD (chronic obstructive pulmonary disease) ([facility] 07/10/2023 COPD exacerbation ([facility] 09/17/2023 Decreased functional mobility 09/17/2023 Diabetic neuropathy ([facility]) 07/10/2023 Dietary counseling and surveillance Edema 07/10/2023 Elevated sed rate Elevated WBC count Essential (primary) hypertension ([facility]) GERD (gastroesophageal reflux disease) 09/17/2023 Hyperlipidemia ([facility]) 09/17/2023 Hypertension ([facility]) 07/10/2023 Insomnia 09/17/2023 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 ([facility] Lower extremity edema 09/17/2023 Mixed hyperlipidemia ([facility]) Morbid (severe) obesity due to excess calories ([facility]) Obstructive sleep apnea 07/10/2023 PAD (peripheral artery disease) ([facility]) 09/17/2023 Pancreatitis 09/17/2023 Pneumonia 09/17/2023 Proteinuria, unspecified Pulmonary hypertension ([facility]) 09/17/2023 Radiculopathy, lumbar region 09/17/2023 Tobacco user 09/17/2023 Type 2 diabetes mellitus with complication, with long-term current use of insulin ([facility]) 07/10/2023 Unilateral primary osteoarthritis, right hip 09/17/2023 [...] Problem List Items Addressed This Visit Hypertension ([facility]) Please check blood pressure daily and record DASH diet Limit caffeine Take medication as directed Contact office if chest pain, pressure, dizziness, shortness of breath, swelling legs Recommend slow position changes Current meds: hydralazine, lisinopril, Type 2 diabetes mellitus with complication, with long-term current use of insulin ([facility]) Check blood sugars daily, notify if <70 [...] secondary to her steroids Anxiety and depression ([facility]) Current meds: elavil, duloxtine, COPD exacerbation ([facility]) Recent ER visit for unresponsiveness , found to have fever and elevated WBC Sent home with steroids and atb Breathing is better and she feels back to her normal baseline Does have home O2, she is not wearing this today Pulmonary hypertension ([facility]) Has seen [facility] Cardiology Morbid (severe) obesity due to excess calories ([facility]) Discussed with patient their BMI (actual, verses [...] EDTAssociated Problem(s): Pulmonary hypertension (CMS/HCC) Has seen [facility] Cardiology * Mckayla Blas NP [...] not wearing this today documented in this encounterCarondelet HealthJuuhhderza10-43-8797 Instructions* Patient Instructions* Mckayla Blas NP - 12/09/2024 10:00 AM EDT Keep appt with wound care today Keep fu with me, sooner if needed documented in this encounterCarondelet HealthSrgqsziubv65-88-3355 History of Present illness Narrative* Mckayla Blas [...] 25 mg, Oral, 2 times daily HYDROcodone-acetaminophen (Charlotte) 5-325 MG tablet 1 tablet, 3 times [...] CT Albuminuria 09/17/2023 Angiomyolipoma Anxiety and depression ([facility]) 07/10/2023 Asthma 07/10/2023 Body mass index (BMI) 50.0-59.9, adult [place] Cellulitis of left lower extremity Cervical cancer ([facility] 09/17/2023 Chronic pain of both knees 09/17/2023 COPD (chronic obstructive pulmonary disease) ([facility] 07/10/2023 COPD exacerbation ([facility] 09/17/2023 Decreased functional mobility 09/17/2023 Diabetic neuropathy ([facility]) 07/10/2023 Dietary counseling and surveillance Edema 07/10/2023 Elevated sed rate Elevated WBC count Essential (primary) hypertension ([facility] GERD (gastroesophageal reflux disease) 09/17/2023 Hyperlipidemia ([facility]) 09/17/2023 Hypertension ([facility]) 07/10/2023 Insomnia 09/17/2023 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 ([facility] Lower extremity edema 09/17/2023 Mixed hyperlipidemia ([facility]) Morbid (severe) obesity due to excess calories ([facility] Obstructive sleep apnea 07/10/2023 PAD (peripheral artery disease) ([facility]) 09/17/2023 Pancreatitis 09/17/2023 Pneumonia 09/17/2023 Proteinuria, unspecified Pulmonary hypertension ([facility]) 09/17/2023 Radiculopathy, lumbar region 09/17/2023 Tobacco user 09/17/2023 Type 2 diabetes mellitus with complication, with long-term current use of insulin ([facility]) 07/10/2023 Unilateral primary osteoarthritis, right hip 09/17/2023 [...] List Items Addressed This Visit Diabetic neuropathy ([facility]) - Primary Continue with cintia hudson mgmt is prescribing OARRS reviewed Fu in 3 months Goal: tighter glucose control, this has been improving, latest A1c is 7.4%!!! Hypertension ([facility]) Please check blood pressure daily and record DASH diet Limit caffeine Take medication as directed Contact office if chest pain, pressure, dizziness, shortness of breath, swelling legs Recommend slow position changes Current meds: hydralazine, lisinopril, Relevant Medications hydrALAZINE (Apresoline) 25 MG tablet lisinopril 20 MG tablet Type 2 diabetes mellitus with complication, with long-term current use of insulin ([facility]) Check blood sugars daily, notify if <70 [...] 81 MG chewable tablet Anxiety and depression ([facility]) Current meds: elavil, duloxtine, Relevant Medications DULoxetine (Cymbalta) [address] capsule Bilateral lower extremity edema Limit sodium , elevate legs, furosemide Relevant Medications furosemide (Lasix) 20 MG tablet potassium chloride ER (Micro-K) 10 MEQ ER capsule furosemide (Lasix) 40 MG tablet Insomnia Relevant Medications amitriptyline (Elavil) 25 MG tablet PAD (peripheral artery disease) ([facility]) Asa, statin Quit smoking BP and DM [...] Relevant Medications ergocalciferol (Vitamin D2) 1.25 MG (68260 UT) capsule Gastro-esophageal reflux disease without esophagitis [...] complication, with long-term current use of insulin ([facility]) Check blood sugars daily, notify if <70 [...] Morbid (severe) obesity due to excess calories ([facility]) Discussed with patient their BMI (actual, verses [...] latest A1c is 7.4%!!! documented in [place] encounter[place] [id number] Instructions* Patient Instructions* Mckayla Blas NP - 10/27/2024 2:00 PM EDT No dose changes in meds You will be due for mammogram I will send order to [facility], they should call you to schedule If no call, please call [phone] ext [phone] documented in this encounterMichael [place] [id number] History of Present illness Narrative* Rain Souza [...] 96, on lantus 58 units bid, lispro 8-17-00lbxrw plus ISS, Trulicity 4.5 mg weekly. meter give us error during download IM 03/2022 follow up visit on 03/14/2022, A1c in the office 9.4, bg 142, on lantus 58 units bid, lispro 7-19-05cdgzf plus ISS, Trulicity 4.5 mg weekly. lab [...] or chew. ergocalciferol (Vitamin D2) 1.25 MG (79359 UT) capsule TAKE 1 CAPSULE BY MOUTH [...] 25 mg, Oral, 2 times daily HYDROcodone-acetaminophen ([place]) 5-325 MG tablet 1 tablet, 3 times [...] CT Albuminuria 09/17/2023 Angiomyolipoma Anxiety and depression ([facility]) 07/10/2023 Asthma ([facility]) 07/10/2023 Body mass index (BMI) 50.0-59.9, adult ([facility]) Cellulitis of left lower extremity Cervical cancer ([facility]) 09/17/2023 Chronic pain of both knees 09/17/2023 COPD (chronic obstructive pulmonary disease) [place] 07/10/2023 COPD exacerbation ([facility]) 09/17/2023 Decreased functional mobility 09/17/2023 Diabetic neuropathy ([facility]) 07/10/2023 Dietary counseling and surveillance Edema 07/10/2023 Elevated sed rate Elevated WBC count Essential (primary) hypertension ([facility]) GERD (gastroesophageal reflux disease) 09/17/2023 Hyperlipidemia ([facility]) 09/17/2023 Hypertension ([facility]) 07/10/2023 Insomnia 09/17/2023 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 ([facility]) Lower extremity edema 09/17/2023 Mixed [facility] Morbid (severe) obesity due to excess calories ([facility] Obstructive sleep apnea 07/10/2023 PAD (peripheral artery disease) ([facility] 09/17/2023 Pancreatitis 09/17/2023 Pneumonia 09/17/2023 Proteinuria, unspecified Pulmonary hypertension ([facility] 09/17/2023 Radiculopathy, lumbar region 09/17/2023 Tobacco user 09/17/2023 Type 2 diabetes mellitus with complication, with long-term current use of insulin ([facility] 07/10/2023 Unilateral primary osteoarthritis, right hip 09/17/2023 [...] hyperglycemia, with long-term current use of insulin ([facility]) - POCT glucose manually resulted - POCT [...] 4 months (around 02/07/2025). documented in this encounterCarondelet [id number] History of Present illness Narrative* Mckayla Blas [...] or chew. ergocalciferol (Vitamin D2) 1.25 MG (78684 UT) capsule TAKE 1 CAPSULE BY MOUTH [...] 25 mg, Oral, 2 times daily HYDROcodone-acetaminophen ([place]) 5-325 MG tablet 1 tablet, 3 times [...] CT Albuminuria 09/17/2023 Angiomyolipoma Anxiety and depression ([facility] 07/10/2023 Asthma ([facility]) 07/10/2023 Body mass index (BMI) 50.0-59.9, adult ([facility] Cellulitis of left lower extremity Cervical cancer ([facility]) 09/17/2023 Chronic pain of both knees 09/17/2023 COPD (chronic obstructive pulmonary disease) ([facility] 07/10/2023 COPD exacerbation ([facility] 09/17/2023 Decreased functional mobility 09/17/2023 Diabetic neuropathy ([facility] 07/10/2023 Dietary counseling and surveillance Edema 07/10/2023 Elevated sed rate Elevated WBC count Essential (primary) hypertension ([facility]) GERD (gastroesophageal reflux disease) 09/17/2023 Hyperlipidemia ([facility] 09/17/2023 Hypertension ([facility] 07/10/2023 Insomnia 09/17/2023 shelter (current) use of insulin ([facility] Lower extremity edema 09/17/2023 Mixed hyperlipidemia ([facility] Morbid (severe) obesity due to excess calories ([facility] Obstructive sleep apnea 07/10/2023 PAD (peripheral artery disease) ([facility] 09/17/2023 Pancreatitis 09/17/2023 Pneumonia 09/17/2023 Proteinuria, unspecified Pulmonary hypertension ([facility]) 09/17/2023 Radiculopathy, lumbar region 09/17/2023 Tobacco user 09/17/2023 Type 2 diabetes mellitus with complication, with long-term current use of insulin ([facility] 07/10/2023 Unilateral primary osteoarthritis, right hip 09/17/2023 [...] List Items Addressed This Visit Diabetic neuropathy ([facility]) Continue with cintia hudson mgmt is prescribing OARRS reviewed Fu in 3 months Goal: tighter glucose control Hypertension ([facility]) Please check blood pressure daily and record [...] complication, with long-term current use of insulin ([facility]) Check blood sugars daily, notify if <70 [...] / creatinine, urine ratio Anxiety and depression ([facility]) - Primary Current meds: elavil, duloxtine, PHQ [...] PPI Malignant neoplasm of cervix uteri, unspecified ([facility]) Had in the past, had hysterectomy Tobacco user The patient has been advised of the risks of continued smoking: stroke, AK, all forms of cancer, lung disease, and [...] of the risks of continued smoking: stroke, AK, all forms of cancer, lung disease, and [...] Asthma (CMS/HCC) Current meds: albuterol, duoneb, 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 year old female patient being seen for follow-up on diastolic heart failure, shortness of breath and hypertension Patient Active Problem List Diagnosis Abdominal pannus Adrenal mass 1 cm to 4 cm in diameter ([facility]) Albuminuria RAGHU positive Anxiety and depression Arthritis Asthma Bilateral lower extremity edema BMI 50.0-59.9, adult ([facility]) Candidiasis of breast Cardiomegaly Cervical cancer ([facility]) Chronic pain of both knees Closed fracture of upper end of humerus Acute respiratory distress syndrome ([facility]) Decreased functional mobility Diabetic neuropathy ([facility]) Easy bruising GERD (gastroesophageal reflux disease) Gout Headache Hyperlipidemia Hypertension Insomnia Kidney stone Left flank pain Mixed incontinence Class 3 severe obesity with serious comorbidity and body mass index (BMI) of 50.0 to 59.9 in adult ([facility]) Non-seasonal allergic rhinitis Obstructive sleep apnea Other chronic pain PAD (peripheral artery disease) ([facility]) Pneumonia Encounter for screening mammogram for malignant neoplasm of breast Pulmonary hypertension ([facility]) Radiculopathy, lumbar region Current smoker Type 2 diabetes mellitus with complication, with long-term current use of insulin ([facility]) Unilateral primary osteoarthritis, right hip Vaginal yeast infection Venous insufficiency Bad odor of urine Critical limb ischemia of right lower extremity ([facility]) Hyperpigmentation of skin 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 2 diabetes mellitus ([facility]) Myelolipoma of adrenal gland Venous ulcer of right leg ([facility]) HPI Patient was has history of chronic [...] Diagnosis Date COPD (chronic obstructive pulmonary disease) ([facility]) Diabetes mellitus ([facility]) Hyperlipidemia Hypertension Sleep apnea Past Surgical History: [...] , Rfl: ergocalciferol (Vitamin D-2) 1.25 MG (19551 Units) capsule, Take 1.25 mg by mouth., [...] and at bedtime., Disp: , Rfl: HYDROcodone-acetaminophen ([place]) 5-325 mg tablet, TAKE 1 TABLET BY [...] SUBCUTANEOUSLY TWICE DAILY, Disp: (more content not included)...[facility]01-06-2025 History of Present illness Narrative* Mckayla [...] or chew. ergocalciferol (Vitamin D2) 1.25 MG (88846 UT) capsule TAKE 1 CAPSULE BY MOUTH ONE TIME PER WEEK furosemide (LASIX) 40 mg, Oral, Daily furosemide (LASIX) 20 mg, Oral, Daily PRN, Take in the afternoon as needed hydrALAZINE (APRESOLINE) 25 mg, Oral, 2 times daily HYDROcodone-acetaminophen ([place]) 5-325 MG tablet 1 tablet, 3 times [...] CT Albuminuria 09/17/2023 Angiomyolipoma Anxiety and depression ([facility]) 07/10/2023 Asthma ([facility]) 07/10/2023 Body mass index (BMI) 50.0-59.9, adult ([facility] Cellulitis of left lower extremity Cervical cancer ([facility] 09/17/2023 Chronic pain of both knees 09/17/2023 COPD (chronic obstructive pulmonary disease) ([facility] 07/10/2023 COPD exacerbation ([facility] 09/17/2023 Decreased functional mobility 09/17/2023 Diabetic neuropathy ([facility] 07/10/2023 Dietary counseling and surveillance Edema 07/10/2023 Elevated sed rate Elevated WBC count Essential (primary) hypertension ([facility] GERD (gastroesophageal reflux disease) 09/17/2023 Hyperlipidemia ([facility]) 09/17/2023 Hypertension ([facility] 07/10/2023 Insomnia 09/17/2023 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 ([facility] Lower extremity edema 09/17/2023 Mixed hyperlipidemia ([facility] Morbid (severe) obesity due to excess calories ([facility] Obstructive sleep apnea 07/10/2023 PAD (peripheral artery disease) ([facility] 09/17/2023 Pancreatitis 09/17/2023 Pneumonia 09/17/2023 Proteinuria, unspecified Pulmonary hypertension ([facility] 09/17/2023 Radiculopathy, lumbar region 09/17/2023 Tobacco user 09/17/2023 Type 2 diabetes mellitus with complication, with long-term current use of insulin ([facility] 07/10/2023 Unilateral primary osteoarthritis, right hip 09/17/2023 [...] List Items Addressed This Visit Diabetic neuropathy ([facility]) Continue with lyrica OARRS reviewed Fu in 3 months COPD (chronic obstructive pulmonary disease) ([facility]) Stable at this time, no changes in meds Encouraged smoking cessation Cont with dr Yañez Hypertension ([facility]) - Primary Please check blood pressure daily and record DASH diet Limit caffeine Take medication as directed Contact office if chest pain, pressure, dizziness, shortness of breath, swelling legs Recommend slow position changes Current meds: hydralazine, lisinopril, Type 2 diabetes mellitus with complication, with long-term current use of insulin ([facility]) Check blood sugars daily, notify if <70 [...] take over prescribing PAD (peripheral artery disease) ([facility]) Asa, statin Quit smoking BP and DM [...] of the risks of continued smoking: stroke, AK, all forms of cancer, lung disease, and [...] of the risks of continued smoking: stroke, AK, all forms of cancer, lung disease, and [...] complication, with long-term current use of insulin ([facility]) Check blood sugars daily, notify if <70 [...] Fu in 3 months documented in this encounterCarondelet [id number] Hospital Discharge instructions Patient Education 06/11/2024 10:44:08 [...] require a prescription. You can also purchase xemt-lup-kcekvaz medicines. Medicines may have nicotine in them [...] and encouragement. Call telephone quitlines, such as 6-537-UKXZ-NOW, reach out to support groups, or work [...] provider. Document Revised: 06/16/2022 Document Reviewed: 06/16/2022 [employer] Patient Education 2023 [employer] 06/11/2024 10:39:22 Dietary Guidelines to Help [...] include: ?8 oz (237 mL) of milk, tgveiaq-lzggemyatcnw-ipooe milk, and calcium- fortifiedfruit juice. Calcium-fortified means [...] [place] chard. ?Peanuts. ?Potato chips, japanese fries, and baked potatoes with skin on. ?Nuts and nut products. ?Chocolate. If you regularly take a diuretic medicine, make sure to eat at least 1 or 2 servings of fruits or vegetables that are high in potassium each day. These include: ?Avocado. ?Banana. ?[place], prune, carrot, or tomato juice. ?Baked potato. [...] magnesium, fish oil, or vitamin B6. Take mujk-pbl-iflryvc and prescription medicines only as told by [...] Casseroles. Pizza. Lasagna. Frozen meals. Potato chips. Congolese fries. The items listed above may not [...] Document Reviewed: 10/05/2022 Else[employer] Patient Education 2023 [employer]. Follow Up Care 05/06/2024 08:24:56 With:REGLA PHIPPS, Elbert Joya, GEMA Address: [facility] [address] [place] [address]- When: Unknown [facility] 12-04-2024 NotePatient Education Nephrology Dietary [...] ? 8 oz (237 mL) of milk, wyzdmus-mpjqzfneejgy-vofbb milk, and calcium- fortifiedfruit juice. Calcium-fortified means [...] [place] chard. ? Peanuts. ? Potato chips, japanese fries, and baked potatoes with skin on. ? Nuts and nut products. ? Chocolate. ??? If you regularly take a diuretic medicine, make sure to eat at least 1 or 2 servings of fruits or vegetables that are high in potassium each day. These include: ? Avocado. ? Banana. ? [place], prune, carrot, or tomato juice. ? Baked [...] fish oil, or vitamin B6. ??? Take xrtj-ofz-pdhmorg and prescription medicines only as told by your health (more content not included)...[facility]11-19-2024 History of Present illness Narrative* Rain [...] 96, on lantus 58 units bid, lispro 1-88-82lsewk plus ISS, Trulicity 4.5 mg weekly. meter give us error during download IM 03/2022 follow up visit on 03/14/2022, A1c in the office 9.4, bg 142, on lantus 58 units bid, lispro 3-38-27mhyuz plus ISS, Trulicity 4.5 mg weekly. lab [...] or chew. ergocalciferol (Vitamin D2) 1.25 MG (06091 UT) capsule TAKE 1 CAPSULE BY MOUTH ONE TIME PER WEEK furosemide (LASIX) 20 mg, Oral, Daily PRN, Take in the afternoon as needed furosemide (LASIX) 40 mg, Oral, Daily Glucose Blood (ACCU-CHEK JAQUI PLUS ) 4 times daily hydrALAZINE (APRESOLINE) 25 mg, Oral, 2 times daily HYDROcodone-acetaminophen ([place]) 5-325 MG tablet 1 tablet, 3 times [...] X 42 tablet therapy [facility] ALLERGIES: No Known Allergies Past Medical History: Diagnosis Date Abnormal chest CT Albuminuria 09/17/2023 Angiomyolipoma Anxiety and depression ([facility] 07/10/2023 Asthma ([facility] 07/10/2023 Body mass index (BMI) 50.0-59.9, adult ([facility] Cellulitis of left lower extremity Cervical cancer ([facility]) 09/17/2023 Chronic pain of both knees 09/17/2023 COPD (chronic obstructive pulmonary disease) ([facility] 07/10/2023 COPD exacerbation ([facility] 09/17/2023 Decreased functional mobility 09/17/2023 Diabetic neuropathy ([facility]) 07/10/2023 Dietary counseling and surveillance Edema 07/10/2023 Elevated sed rate Elevated WBC count GERD (gastroesophageal reflux disease) 09/17/2023 Hyperlipidemia ([facility]) 09/17/2023 Hypertension ([facility]) 07/10/2023 Insomnia 09/17/2023 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 ([facility] Lower extremity edema 09/17/2023 Morbid (severe) obesity due to excess calories ([facility] Obstructive sleep apnea 07/10/2023 PAD (peripheral artery disease) ([facility] 09/17/2023 Pancreatitis 09/17/2023 Pneumonia 09/17/2023 Proteinuria, unspecified Pulmonary hypertension ([facility]) 09/17/2023 Radiculopathy, lumbar region 09/17/2023 Tobacco user 09/17/2023 Type 2 diabetes mellitus with complication, with long-term current use of insulin ([facility] 07/10/2023 Unilateral primary osteoarthritis, right hip 09/17/2023 [...] hyperglycemia, with long-term current use of insulin ([facility]) - POCT glucose manually resulted - POCT glycosylated hemoglobin (Hb A1C) docked device We will continue with Lantus 58, lispro 02/16/12 according to meal size, Mounjaro 15 mg once weekly, Farxiga 5 mg once a day Encounter for dietary consultation Vitamin D deficiency Primary hypertension ([facility]) To follow with her PCP Insulin long-term use ([facility] Hyperlipemia, mixed ([facility]) Continue with Zocor 10 mg once daily Microalbuminuria Class 3 severe obesity due to excess calories with serious comorbidity and body mass index (BMI) of50.0 to 59.9 in adult ([facility] HEALTH) Diet and exercise reviewed with the patient Follow up in about 3 months (around 08/27/2024). documented in this encounterCarondelet [id number] History of Present illness Narrative* Mckayla Blas NP - 04/14/2024 11:45 AM EDTAssociated Problem(s): Hyperpigmentation of skin Will try cerevue ointment to see if helps * Mckayla Blas NP - 04/14/2024 11:43 AM EDTAssociated Problem(s): Tobacco user Urged to quit * Mckayla Blas NP - 04/14/2024 11:43 AM EDTAssociated Problem(s): Type 2 diabetes mellitus with complication, with long-term current use of insulin ([facility]) Check blood sugars daily, follow w Endo. [...] being taken. She does not see a disaster recovery coordinator.Eye exam is not current. Hypertension This is [...] or chew. ergocalciferol (Vitamin D2) 1.25 MG (81044 UT) capsule TAKE 1 CAPSULE BY MOUTH ONE TIME PER WEEK furosemide (LASIX) 20 mg, Oral, Daily PRN, Take in the afternoon as needed furosemide (LASIX) 40 mg, Oral, Daily Glucose Blood (ACCU-CHEK JAQUI PLUS ) 4 times daily HumaLOG KWIKPEN 100 UNIT/ML injection Subcutaneous hydrALAZINE (APRESOLINE) 25 mg, Oral, 2 times daily HYDROcodone-acetaminophen (Charlotte) 5-325 MG tablet 1 tablet, 3 times [...] CT Albuminuria 09/17/2023 Angiomyolipoma Anxiety and depression [place] 07/10/2023 Asthma ([facility] 07/10/2023 Cellulitis of left lower extremity Cervical cancer ([facility] 09/17/2023 Chronic pain of both knees 09/17/2023 COPD (chronic obstructive pulmonary disease) ([facility] 07/10/2023 COPD exacerbation ([facility] 09/17/2023 Decreased functional mobility 09/17/2023 Diabetic neuropathy ([facility] 07/10/2023 Edema 07/10/2023 Elevated sed rate Elevated WBC count GERD (gastroesophageal reflux disease) 09/17/2023 Hyperlipidemia ([facility] 09/17/2023 Hypertension ([facility] 07/10/2023 Insomnia 09/17/2023 Lower extremity edema 09/17/2023 Obstructive sleep apnea 07/10/2023 PAD (peripheral artery disease) ([facility] 09/17/2023 Pancreatitis 09/17/2023 Pneumonia 09/17/2023 Pulmonary hypertension ([facility] 09/17/2023 Radiculopathy, lumbar region 09/17/2023 Tobacco user 09/17/2023 Type 2 diabetes mellitus with complication, with long-term current use of insulin ([facility] 07/10/2023 Unilateral primary osteoarthritis, right hip 09/17/2023 [...] List Items Addressed This Visit Diabetic neuropathy ([facility]/HCC) Continue with lyricjuvenal GALLAGHERRRS reviewed Fu in 3 months Relevant Medications pregabalin (Lyrica) 300 MG capsule COPD (chronic obstructive pulmonary disease) ([facility]) - Primary Stable at this time, no changes in meds Encouraged smoking cessation Cont with dr Yañez Hypertension ([facility]) Stable on current meds Refill meds Relevant Medications hydrALAZINE (Apresoline) 25 MG tablet lisinopril 20 MG tablet Type 2 diabetes mellitus with complication, with long-term current use of insulin ([facility]) Check blood sugars daily, follow w Endo. [...] Roflumilast 500 MCG tablet documented in this encounterCarondelet [id number] Hospital Discharge instructions Patient Education 11/15/2022 14:09:21 [...] include: ?8 oz (237 mL) of milk, qxpowfp-jqenecajlahw-zlcvc milk, and calcium- fortifiedfruit juice. Calcium-fortified means [...] [place] chard. ?Peanuts. ?Potato chips, japanese fries, and baked potatoes with skin on. ?Nuts and nut products. ?Chocolate. If you regularly take a diuretic medicine, make sure to eat at least 1 or 2 servings of fruits or vegetables that are high in potassium each day. These include: ?Avocado. ?Banana. ?[place], prune, carrot, or tomato juice. ?Baked potato. [...] magnesium, fish oil, or vitamin B6. Take spkr-thz-nzzaitl and prescription medicines only as told by [...] Casseroles. Pizza. Lasagna. Frozen meals. Potato chips. Congolese fries. The items listed above may not [...] provider. Document Revised: 03/06/2022 Document Reviewed: 03/06/2022 [employer] Patient Education 2022 [employer] Follow Up Care 02/06/2022 11:44:09 With:GAVIOTA ADAMES PA-C, URL Address: Formerly named [facility] [address] [place] [address] When: Unknown [facility] 02-16-2023 NoteCONSULTATION CONSULTATION DATE: 08/24/2022 [...] We maintain her on pain medication with Charlotte 5/325 t.i.d., diclofenac 75 mg b.i.d. Her [...] her at this point. A refill for Charlotte 5/325 t.i.d. and diclofenac 75 mg b.i.d. will be sent to the pharmacy. Vitamin compliance and nutrition were discussed and enforced. I did highly encourage her to use exercise bands to increase the strength in her lower extremities. We will see her in three months' time, unless otherwise indicated, and patient agrees.[id number] NoteCONSULTATION CONSULTATION DATE: 05/11/2022 This 51-year-old female [...] 150. Medications include Lyrica 300 mg b.i.d., Charlotte 5/325 t.i.d., diclofenac 75 mg b.i.d. and [...] her medications today. We will maintain Lyrica, Charlotte and diclofenac at the set dose and frequency. We will follow-up in the clinic in three months' time. The patient is in agreement to this. Vitamin importance and nutrition were discussed.[facility] [id number] NoteCONSULTATION CONSULTATION DATE: 04/20/2022 HISTORY OF PRESENT [...] medications include Tylenol, Lyrica 300 mg b.i.d., Charlotte 5/325 t.i.d., amitriptyline, diclofenac and duloxetine. Patient's [...] will be followed up in the clinic.[facility] [id number] Evaluation note* Encounter Date Diagnosis Assessment Notes [...] to the DANIEL. Thrombocytopenia is unclear etiology. [facility] Other 08-15-2022 Evaluation note* Encounter Date Diagnosis [...] follow with Dr. Souza and Dr. Arauz. [facility] Other 08-01-2022 Hospital Discharge instructions Patient Education [...] fried and sweet foods. General instructions Take dpzj-khq-htmcwpy and prescription medicines only as told by [...] 04/21/2010 Document Revised: 10/16/2019 Document Reviewed: 07/11/2018 [employer] Patient Education 2020 [employer]. Follow Up Care 01/05/2022 12:02:03 With:REGLA PHIPPS, Elbert Joya, URL Address: [facility] [address] [place] [address] [phone] When:Within 6 Month(s) Comments:w/ repeat CT A/P [facility] 07-14-2022 NoteCONSULTATION PROCEDURE DATE: 01/19/2022 [...] pattern and the patient tolerated it well. [facility] Signed and Approved by: GIL VALENZUELA . 01/27/2022 14:15:00[facility]07-14-2022 NoteCONSULTATION CONSULTATION DATE: 01/19/2022 This [...] today. Medications include Lyrica 300 mg b.i.d., Charlotte 5/325 t.i.d., diclofenac 75 mg b.i.d. and [...] in three months' time unless otherwise indicated. [facility] Signed and Approved by: GIL VALENZUELA . 01/27/2022 14:15:00[facility] HospitalEvaluation + Plan note Future Appointments Appointment Date:08/14/2022 09:15:00 AM Scheduled Provider:Elbert ARAUZ MD Location:[facility] Appointment Type:URO Office Visit [facility] evaluation + Plan note Future Appointments Appointment Date:04/22/2024 10:00:00 AM Scheduled Provider:GAVIOTA ADAMES PA-C Location:[facility] Appointment Type:URO Office Visit [facility] [...] with long-term current use of insulin ([facility]) Non-seasonal allergic rhinitis, unspecified trigger Type 2 diabetes mellitus with unspecified complications ([facility]) Anxiety and depression ([facility]) Gastro-esophageal reflux disease without esophagitis Edema, unspecified Edema Diabetic polyneuropathy associated with type 2 diabetes mellitus ([facility]) Chronic obstructive pulmonary disease, unspecified ([facility]) Pulmonary emphysema, unspecified emphysema type ([facility]) Bilateral lower extremity edema Tobacco user Tobacco use disorder Hyperpigmentation of skin Other dyschromia documented in this encounter [facility] HealthcareEvaluation note* Diagnosis Obstructive sleep apnea- Primary Obstructive sleep apnea (adult) (pediatric) Pulmonary emphysema, unspecified emphysema type ([facility]) Primary hypertension ([facility]) Unspecified essential hypertension Type 2 diabetes mellitus with complication, with long-term current use of insulin ([facility]) Anxiety and depression ([facility]) Bilateral lower extremity edema Pulmonary emphysema, unspecified emphysema type ([facility])- Primary Primary hypertension ([facility]) Unspecified essential hypertension Class 3 severe obesity with serious comorbidity and body mass index (BMI) of 50.0 to 59.9 in adult,unspecified obesity type ([facility]) Obstructive sleep apnea Obstructive sleep apnea (adult) (pediatric) Pulmonary hypertension ([facility]) Other chronic pulmonary heart diseases Tobacco user Tobacco use disorder Cardiomegaly Primary hypertension ([facility])- Primary Unspecified essential hypertension Gastroesophageal reflux disease, unspecified whether esophagitis present Type 2 diabetes mellitus with complication, with long-term current use of insulin ([facility]) Mixed hyperlipidemia ([facility]) Mixed hyperlipidemia Tobacco user Tobacco use disorder Encounter for screening mammogram for malignant neoplasm of breast Chronic obstructive pulmonary disease, unspecified ([facility]) Other specified chronic obstructive pulmonary disease ([facility]) Anxiety and depression ([facility]) Edema, unspecified Edema Hyperlipidemia, unspecified ([facility]) Diabetic polyneuropathy associated with type 2 diabetes mellitus ([facility]) Gout, unspecified cause, unspecified chronicity, unspecified site Non-seasonal allergic rhinitis, unspecified trigger Bilateral lower extremity edema COPD exacerbation ([facility]) Obstructive chronic bronchitis with exacerbation Pulmonary emphysema, unspecified emphysema type ([facility]) Venous insufficiency Unspecified venous (peripheral) insufficiency Candidiasis of breast COPD exacerbation ([facility])- Primary Obstructive chronic bronchitis with exacerbation Pulmonary hypertension ([facility]) Other chronic pulmonary heart diseases Class 3 severe obesity with serious comorbidity and body mass index (BMI) of 50.0 to 59.9 in adult,unspecified obesity type ([facility]) Encounter for subsequent annual wellness visit (AWV) in Medicare patient- Primary Type 2 diabetes mellitus with unspecified complications (CMS/HCC) Pulmonary emphysema, unspecified emphysema type (CMS/HCC) Moderate persistent asthma without complication (CMS/HCC) Primary hypertension (CMS/HCC) Unspecified essential hypertension Type 2 diabetes mellitus with complication, with long-term current use of insulin ([facility]) Class 3 severe obesity with serious comorbidity and body mass index (BMI) of 50.0 to 59.9 in adult,unspecified obesity type (CMS/HCC) Tobacco user Tobacco use disorder Other headache syndrome Malignant neoplasm of cervix uteri, unspecified (CMS/HCC) Other specified disorders of adrenal gland ([facility]) Major depressive disorder, single episode, mild (HCC) ([facility]) Major depressive disorder, single episode, mild Non-pressure chronic ulcer of other part of left lower leg with fat layer exposed ([facility]) Chronic respiratory failure, unspecified whether with hypoxia or hypercapnia ([facility]) Disorder of adrenal gland, unspecified ([facility]) Non-pressure chronic ulcer of other part of right lower leg limited to breakdown of skin ([facility]) Non-recurrent acute suppurative otitis media of left ear without spontaneous rupture of tympanic membrane Primary hypertension ([facility])- Primary Unspecified essential hypertension Insomnia Insomnia, unspecified Type 2 diabetes mellitus with complication, with long-term current use of insulin (CMS/HCC) Non-seasonal allergic rhinitis, unspecified trigger Type 2 diabetes mellitus with unspecified complications ([facility]) Anxiety and depression ([facility]) Gastro-esophageal reflux disease without esophagitis Edema, unspecified Edema Diabetic polyneuropathy associated with type 2 diabetes mellitus ([facility]) Chronic obstructive pulmonary disease, unspecified (CMS/HCC) Pulmonary emphysema, unspecified emphysema type (CMS/HCC) Bilateral lower extremity edema Tobacco user Tobacco use disorder Hyperpigmentation of skin Other dyschromia Type 2 diabetes mellitus with hyperglycemia, with long-term current use of insulin ([facility])- Primary Encounter for dietary consultation Vitamin D deficiency Primary hypertension (CMS/HCC) Unspecified essential hypertension Insulin long-term use ([facility]) Encounter for long-term (current) use of insulin Hyperlipemia, mixed ([facility]) Mixed hyperlipidemia Microalbuminuria Proteinuria Class 3 severe obesity due to excess calories with serious comorbidity and body mass index (BMI) of50.0 to 59.9 in adult ([facility]) documented in this encounter [facility] HealthcareEvaluation note* Diagnosis Hyperlipidemia, unspecified ([facility]) Bilateral lower extremity edema documented in this encounter [facility] HealthcareEvaluation note* Diagnosis Vitamin D deficiency, unspecified documented in this encounter [facility] HealthcareEvaluation note* Diagnosis Obstructive sleep apnea- Primary Obstructive sleep apnea (adult) (pediatric) Pulmonary emphysema, unspecified emphysema type ([facility]) Primary hypertension ([facility]) Unspecified essential hypertension Type 2 diabetes mellitus with complication, with long-term current use of insulin ([facility]) Anxiety and depression ([facility]) Bilateral lower extremity edema Pulmonary emphysema, unspecified emphysema type ([facility])- Primary Primary hypertension ([facility]) Unspecified essential hypertension Class 3 severe obesity with serious comorbidity and body mass index (BMI) of 50.0 to 59.9 in adult,unspecified obesity type ([facility]) Obstructive sleep apnea Obstructive sleep apnea (adult) (pediatric) Pulmonary hypertension ([facility]) Other chronic pulmonary heart diseases Tobacco user Tobacco use disorder Cardiomegaly Primary hypertension ([facility])- Primary Unspecified essential hypertension Gastroesophageal reflux disease, unspecified whether esophagitis present Type 2 diabetes mellitus with complication, with long-term current use of insulin ([facility]) Mixed hyperlipidemia ([facility]) Mixed hyperlipidemia Tobacco user Tobacco use disorder Encounter for screening mammogram for malignant neoplasm of breast Chronic obstructive pulmonary disease, unspecified ([facility]) Other specified chronic obstructive pulmonary disease ([facility]) Anxiety and depression ([facility]) Edema, unspecified Edema Hyperlipidemia, unspecified ([facility]) Diabetic polyneuropathy associated with type 2 diabetes mellitus ([facility]) Gout, unspecified cause, unspecified chronicity, unspecified site Non-seasonal allergic rhinitis, unspecified trigger Bilateral lower extremity edema COPD exacerbation ([facility]) Obstructive chronic bronchitis with exacerbation Pulmonary emphysema, unspecified emphysema type ([facility]) Venous insufficiency Unspecified venous (peripheral) insufficiency Candidiasis of breast COPD exacerbation ([facility])- Primary Obstructive chronic bronchitis with exacerbation Pulmonary hypertension ([facility]) Other chronic pulmonary heart diseases Class 3 severe obesity with serious comorbidity and body mass index (BMI) of 50.0 to 59.9 in adult,unspecified obesity type ([facility]) Encounter for subsequent annual wellness visit (AWV) [...] depressive disorder, single episode, mild (HCC) ([facility]) Major depressive disorder, single episode, mild Non-pressure chronic ulcer of other part of left lower leg with fat layer exposed ([facility]) Chronic respiratory failure, unspecified whether with hypoxia or hypercapnia ([facility]) Disorder of adrenal gland, unspecified ([facility]) Non-pressure chronic ulcer of other part of right lower leg limited to breakdown of skin ([facility]) Non-recurrent acute suppurative otitis media of left ear without spontaneous rupture of tympanic membrane Primary hypertension (CMS/HCC)- Primary Unspecified essential hypertension Insomnia Insomnia, unspecified Type 2 diabetes mellitus with complication, with long-term current use of insulin (CMS/HCC) Non-seasonal allergic rhinitis, unspecified trigger Type 2 diabetes mellitus with unspecified complications (CMS/HCC) Anxiety and depression ([facility]) Gastro-esophageal reflux disease without esophagitis Edema, unspecified Edema Diabetic polyneuropathy associated with type 2 diabetes mellitus ([facility]) Chronic obstructive pulmonary disease, unspecified (CMS/HCC) Pulmonary [...] 50.0 to 59.9 in adult,unspecified obesity type ([facility]/HCC) Obstructive sleep apnea Obstructive sleep apnea (adult) (pediatric) Pulmonary hypertension (CMS/HCC) Other chronic pulmonary heart diseases Tobacco user Tobacco use disorder Cardiomegaly Primary hypertension (CMS/HCC)- Primary Unspecified essential hypertension Gastroesophageal reflux disease, unspecified whether esophagitis present Type 2 diabetes mellitus with complication, with long-term current use of insulin ([facility]) Mixed hyperlipidemia (CMS/HCC) Mixed hyperlipidemia Tobacco user Tobacco use disorder Encounter for screening mammogram for malignant neoplasm of breast Chronic obstructive pulmonary disease, unspecified ([facility]) Other specified chronic obstructive pulmonary disease ([facility]) Anxiety and depression ([facility]) Edema, unspecified Edema Hyperlipidemia, unspecified ([facility]) Diabetic polyneuropathy associated with type 2 diabetes mellitus ([facility]) Gout, unspecified cause, unspecified chronicity, unspecified site Non-seasonal allergic rhinitis, unspecified trigger Bilateral lower extremity edema COPD exacerbation ([facility]) Obstructive chronic bronchitis with exacerbation Pulmonary emphysema, unspecified emphysema type (CMS/HCC) Venous insufficiency Unspecified venous (peripheral) insufficiency Candidiasis of breast COPD exacerbation ([facility])- Primary Obstructive chronic bronchitis with exacerbation Pulmonary hypertension (CMS/HCC) Other chronic pulmonary heart diseases Class 3 severe obesity with serious comorbidity and body mass index (BMI) of 50.0 to 59.9 in adult,unspecified obesity type ([facility]) Encounter for subsequent annual wellness visit (AWV) in Medicare patient- Primary Type 2 diabetes mellitus with unspecified complications ([facility]) Pulmonary emphysema, unspecified emphysema type (CMS/HCC) Moderate persistent asthma without complication (CMS/HCC) Primary hypertension ([facility]) Unspecified essential hypertension Type 2 diabetes mellitus with complication, with long-term current use of insulin ([facility]) Class 3 severe obesity with serious comorbidity and body mass index (BMI) of 50.0 to 59.9 in adult,unspecified obesity type ([facility]/HCC) Tobacco user Tobacco use disorder Other headache syndrome Malignant neoplasm of cervix uteri, unspecified ([facility]) Other specified disorders of adrenal gland ([facility]) Major depressive disorder, single episode, mild (HCC) ([facility]) Major depressive disorder, single episode, mild Non-pressure [...] rupture of tympanic membrane Primary hypertension ([facility])- Primary Unspecified essential hypertension Insomnia Insomnia, unspecified Type 2 diabetes mellitus with complication, with long-term current use of insulin (CMS/HCC) Non-seasonal allergic rhinitis, unspecified trigger Type 2 diabetes mellitus with unspecified complications (CMS/HCC) Anxiety and depression ([facility]) Gastro-esophageal reflux disease without esophagitis Edema, unspecified Edema Diabetic polyneuropathy associated with type 2 diabetes mellitus ([facility]) Chronic obstructive pulmonary disease, unspecified ([facility]) Pulmonary emphysema, unspecified emphysema type (CMS/HCC) Bilateral lower extremity edema Tobacco user Tobacco use disorder Hyperpigmentation of skin Other dyschromia Primary hypertension ([facility])- Primary Unspecified essential hypertension Diabetic polyneuropathy associated with type 2 diabetes mellitus ([facility]) Pulmonary emphysema, unspecified emphysema type (CMS/HCC) Critical limb ischemia of right lower extremity ([facility]) PAD (peripheral artery disease) ([facility]) Unspecified peripheral vascular disease Gastroesophageal reflux disease, unspecified whether esophagitis present Bilateral lower extremity edema Venous ulcer of right leg ([facility]) Type 2 diabetes mellitus with complication, with long-term current use of insulin ([facility]) Tobacco user Tobacco use disorder Encounter for smoking cessation counseling Kidney stone Calculus of kidney Adrenal mass 1 cm to 4 cm in diameter ([facility]) Radiculopathy, lumbar region Thoracic or lumbosacral neuritis or radiculitis, unspecified Non-seasonal allergic rhinitis, unspecified trigger Type 2 diabetes mellitus with unspecified complications ([facility]) documented in this encounter [facility] HealthcareEvaluation note* Diagnosis Obstructive sleep apnea- Primary Obstructive sleep apnea (adult) (pediatric) Pulmonary emphysema, unspecified emphysema type (CMS/HCC) Primary hypertension ([facility]) Unspecified essential hypertension Type 2 diabetes mellitus with complication, with long-term current use of insulin ([facility]) Anxiety and depression ([facility]) Bilateral lower extremity edema Pulmonary emphysema, unspecified [...] breast Chronic obstructive pulmonary disease, unspecified ([facility]) Other specified chronic obstructive pulmonary disease (CMS/HCC) Anxiety and depression ([facility]) Edema, unspecified Edema Hyperlipidemia, unspecified ([facility]) Diabetic polyneuropathy associated with type 2 diabetes mellitus ([facility]) Gout, unspecified cause, unspecified chronicity, unspecified site [...] 50.0 to 59.9 in adult,unspecified obesity type ([facility]/HCC) Encounter for subsequent annual wellness visit (AWV) in Medicare patient- Primary Type 2 diabetes mellitus with unspecified complications (CMS/HCC) Pulmonary emphysema, unspecified emphysema type (CMS/HCC) Moderate persistent asthma without complication (CMS/HCC) Primary hypertension (CMS/HCC) Unspecified essential hypertension Type 2 diabetes mellitus with complication, with long-term current use of insulin ([facility]) Class 3 severe obesity with serious comorbidity and body mass index (BMI) of 50.0 to 59.9 in adult,unspecified obesity type (CMS/HCC) Tobacco user Tobacco use disorder Other headache syndrome Malignant neoplasm of cervix uteri, unspecified ([facility]) Other specified disorders of adrenal gland ([facility]) Major depressive disorder, single episode, mild (HCC) ([facility]) Major depressive disorder, single episode, mild Non-pressure chronic ulcer of other part of left lower leg with fat layer exposed ([facility]) Chronic respiratory failure, unspecified whether with hypoxia or hypercapnia (CMS/HCC) Disorder of adrenal gland, unspecified (CMS/HCC) Non-pressure chronic ulcer of other part of right lower leg limited to breakdown of skin (CMS/HCC) Non-recurrent acute suppurative otitis media of left ear without spontaneous rupture of tympanic membrane Primary hypertension ([facility]/HCC)- Primary Unspecified essential hypertension Insomnia Insomnia, unspecified Type 2 diabetes mellitus with complication, with long-term current use of insulin ([facility]) Non-seasonal allergic rhinitis, unspecified trigger Type 2 diabetes mellitus with unspecified complications ([facility]) Anxiety and depression ([facility]) Gastro-esophageal reflux disease without esophagitis Edema, unspecified Edema Diabetic polyneuropathy associated with type 2 diabetes mellitus ([facility]) Chronic obstructive pulmonary disease, unspecified ([facility]) Pulmonary emphysema, unspecified emphysema type ([facility]) Bilateral lower extremity edema Tobacco user Tobacco use disorder Hyperpigmentation of skin Other dyschromia Primary hypertension ([facility])- Primary Unspecified essential hypertension Diabetic polyneuropathy associated with type 2 diabetes mellitus ([facility]) Pulmonary emphysema, unspecified emphysema type ([facility]) Critical limb ischemia of right lower extremity ([facility]) PAD (peripheral artery disease) ([facility]) Unspecified peripheral vascular disease Gastroesophageal reflux disease, unspecified whether esophagitis present Bilateral lower extremity edema Venous ulcer of right leg ([facility]) Type 2 diabetes mellitus with complication, with long-term current use of insulin ([facility]) Tobacco user Tobacco use disorder Encounter for smoking cessation counseling Kidney stone Calculus of kidney Adrenal mass 1 cm to 4 cm in diameter ([facility]) Radiculopathy, lumbar region Thoracic or lumbosacral neuritis or radiculitis, unspecified Non-seasonal allergic rhinitis, unspecified trigger Type 2 diabetes mellitus with unspecified complications (CMS/HCC) Anxiety and depression ([facility])- Primary Morbid (severe) obesity due to excess calories ([facility]) Body mass index (BMI) 50.0-59.9, adult ([facility]) Malignant neoplasm of cervix uteri, unspecified ([facility]) Diabetic polyneuropathy associated with type 2 diabetes mellitus ([facility]) Chronic diastolic heart failure ([facility]) Chronic diastolic heart failure Primary hypertension ([facility]) Unspecified essential hypertension 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 ([facility]) Gastroesophageal reflux disease, unspecified whether esophagitis present Bilateral lower extremity edema Type 2 diabetes mellitus with complication, with long-term current use of insulin ([facility]) Tobacco user Tobacco use disorder Mixed hyperlipidemia ([facility]) Mixed hyperlipidemia Gout, unspecified cause, unspecified chronicity, unspecified site Vitamin deficiency Unspecified vitamin deficiency Gastro-esophageal reflux disease without esophagitis Edema, unspecified Edema Hyperlipidemia, unspecified [place] [place] Encounter for smoking cessation counseling Venous ulcer of right leg ([facility] [place] Antibiotic-induced yeast infection documented in this encounter [facility] HealthcareEvaluation note* Diagnosis Obstructive sleep apnea- Primary Obstructive sleep apnea (adult) (pediatric) Pulmonary emphysema, unspecified emphysema type ([facility]) Primary hypertension ([facility]) Unspecified essential hypertension Type 2 diabetes mellitus with complication, with long-term current use of insulin ([facility] [place] Anxiety and depression ([facility] [place] Bilateral lower extremity edema Pulmonary emphysema, unspecified emphysema type ([facility])- Primary Primary hypertension ([facility]) Unspecified essential hypertension Class 3 severe obesity with serious comorbidity and body mass index (BMI) of 50.0 to 59.9 in adult,unspecified obesity type Obstructive sleep apnea Obstructive sleep apnea (adult) (pediatric) Pulmonary hypertension ([facility]) Other chronic pulmonary heart diseases Tobacco user Tobacco use disorder Cardiomegaly Primary hypertension ([facility])- Primary Unspecified essential hypertension Gastroesophageal reflux disease, unspecified whether esophagitis present Type 2 diabetes mellitus with complication, with long-term current use of insulin ([facility]) Mixed hyperlipidemia ([facility]) Mixed hyperlipidemia Tobacco user Tobacco use disorder Encounter for screening mammogram for malignant neoplasm of breast Chronic obstructive pulmonary disease, unspecified Other specified chronic obstructive pulmonary disease Anxiety and depression ([facility]) Edema, unspecified Edema Hyperlipidemia, unspecified ([facility] [place] Diabetic polyneuropathy associated with type 2 diabetes mellitus ([facility]) Gout, unspecified cause, unspecified chronicity, unspecified site Non-seasonal allergic rhinitis, unspecified trigger Bilateral lower extremity edema COPD exacerbation ([facility]) Obstructive chronic bronchitis with exacerbation Pulmonary emphysema, unspecified emphysema type ([facility]) Venous insufficiency Unspecified venous (peripheral) insufficiency Candidiasis of breast [facility] Primary Obstructive chronic bronchitis with exacerbation Pulmonary hypertension ([facility]) Other chronic pulmonary heart diseases Class 3 severe obesity with serious comorbidity and body mass index (BMI) of 50.0 to 59.9 in adult,unspecified obesity type Encounter for subsequent annual wellness visit (AWV) in Medicare patient- Primary Type 2 diabetes mellitus with unspecified complications Pulmonary emphysema, unspecified emphysema type ([facility]) Moderate persistent asthma without complication ([facility]) Primary hypertension ([facility]) Unspecified essential hypertension Type 2 diabetes mellitus with complication, with long-term current use of insulin ([facility]) Class 3 severe obesity with serious comorbidity and body mass index (BMI) of 50.0 to 59.9 in adult,unspecified obesity type Tobacco user Tobacco use disorder Other headache syndrome Malignant neoplasm of cervix uteri, unspecified Other specified disorders of adrenal gland Major depressive disorder, single episode, mild (HCC) ([facility]) Major depressive disorder, single episode, mild Non-pressure chronic ulcer of other part of left lower leg with fat layer exposed Chronic respiratory failure, unspecified whether with hypoxia or hypercapnia Disorder of adrenal gland, unspecified Non-pressure chronic ulcer of other part of right lower leg limited to breakdown of skin ([facility]) Non-recurrent acute suppurative otitis media of left ear without spontaneous rupture of tympanic membrane Primary hypertension ([facility])- Primary Unspecified essential hypertension Insomnia Insomnia, unspecified Type 2 diabetes mellitus with complication, with long-term current use of insulin ([facility]) Non-seasonal allergic rhinitis, unspecified trigger Type 2 diabetes mellitus with unspecified complications Anxiety and depression ([facility]) Gastro-esophageal reflux disease without esophagitis Edema, unspecified Edema Diabetic polyneuropathy associated with type 2 diabetes mellitus ([facility]) Chronic obstructive pulmonary disease, unspecified Pulmonary emphysema, unspecified emphysema type (CMS/HCC) Bilateral lower extremity edema Tobacco user Tobacco use disorder Hyperpigmentation of skin Other dyschromia Primary hypertension (CMS/HCC)- Primary Unspecified essential hypertension Diabetic polyneuropathy associated with type 2 diabetes mellitus ([facility]) Pulmonary emphysema, unspecified emphysema type (CMS/HCC) Critical limb ischemia of right lower extremity ([facility]) PAD (peripheral artery disease) ([facility]) Unspecified peripheral vascular disease Gastroesophageal reflux disease, unspecified whether esophagitis present Bilateral lower extremity edema Venous ulcer of right leg ([facility]) Type 2 diabetes mellitus with complication, with long-term current use of insulin ([facility]) Tobacco user Tobacco use disorder Encounter for smoking cessation counseling Kidney stone Calculus of kidney Adrenal mass 1 cm to 4 cm in diameter ([facility]) Radiculopathy, lumbar region Thoracic or lumbosacral neuritis or radiculitis, unspecified Non-seasonal allergic rhinitis, unspecified trigger Type 2 diabetes mellitus with unspecified complications Anxiety and depression ([facility] [place] Primary Morbid (severe) obesity due to excess calories ([facility]) Body mass index (BMI) 50.0-59.9, adult ([facility] [place] Malignant neoplasm of cervix uteri, unspecified Diabetic polyneuropathy associated with type 2 diabetes mellitus ([facility]) Chronic diastolic heart failure ([facility] [place] Chronic diastolic heart failure Primary hypertension ([facility] [place] Unspecified essential hypertension 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 Gastroesophageal reflux disease, unspecified whether esophagitis present Bilateral lower extremity edema Type 2 diabetes mellitus with complication, with long-term current use of insulin ([facility]) Tobacco user Tobacco use disorder Mixed hyperlipidemia ([facility]) Mixed hyperlipidemia Gout, unspecified cause, unspecified chronicity, unspecified site Vitamin deficiency Unspecified vitamin deficiency Gastro-esophageal reflux disease without esophagitis Edema, unspecified Edema Hyperlipidemia, unspecified ([facility] [place] Encounter for smoking cessation counseling Venous ulcer of right leg ([facility] [place] Antibiotic-induced yeast infection Type 2 diabetes mellitus with hyperglycemia, with long-term current use of insulin ([facility] [place] Primary Encounter for dietary consultation Vitamin D deficiency Primary hypertension ([facility] [place]) Unspecified essential hypertension Insulin long-term use ([facility] [place] Encounter for long-term (current) use of insulin Hyperlipemia, mixed ([facility]) Mixed hyperlipidemia Microalbuminuria Proteinuria Class 3 severe obesity due to excess calories with serious comorbidity and body mass index (BMI) of50.0 to 59.9 in adult documented in this encounter [facility] HealthcareEvaluation note* Diagnosis Obstructive sleep apnea- Primary Obstructive sleep apnea (adult) (pediatric) Pulmonary emphysema, unspecified emphysema type ([facility]) Primary hypertension ([facility]) Unspecified essential hypertension Type 2 diabetes mellitus with complication, with long-term current use of insulin ([facility]) Anxiety and depression ([facility]) Bilateral lower extremity edema Pulmonary emphysema, unspecified emphysema type ([facility])- Primary Primary hypertension ([facility]) Unspecified essential hypertension Class 3 severe obesity with serious comorbidity and body mass index (BMI) of 50.0 to 59.9 in adult,unspecified obesity type Obstructive sleep apnea Obstructive sleep apnea (adult) (pediatric) Pulmonary hypertension ([facility]) Other chronic pulmonary heart diseases Tobacco user Tobacco use disorder Cardiomegaly Primary hypertension ([facility])- Primary Unspecified essential hypertension Gastroesophageal reflux disease, unspecified whether esophagitis present Type 2 diabetes mellitus with complication, with long-term current use of insulin ([facility]) Mixed hyperlipidemia ([facility]) Mixed hyperlipidemia Tobacco user Tobacco use disorder Encounter for screening mammogram for malignant neoplasm of breast Chronic obstructive pulmonary disease, unspecified Other specified chronic obstructive pulmonary disease Anxiety and depression ([facility]) Edema, unspecified Edema Hyperlipidemia, unspecified ([facility]) Diabetic polyneuropathy associated with type 2 diabetes mellitus ([facility]) Gout, unspecified cause, unspecified chronicity, unspecified site Non-seasonal allergic rhinitis, unspecified trigger Bilateral lower extremity edema COPD exacerbation ([facility]) Obstructive chronic bronchitis with exacerbation Pulmonary emphysema, unspecified emphysema type ([facility]) Venous insufficiency Unspecified venous (peripheral) insufficiency Candidiasis of breast COPD exacerbation ([facility])- Primary Obstructive chronic bronchitis with exacerbation Pulmonary hypertension ([facility]) Other chronic pulmonary heart diseases Class 3 severe obesity with serious comorbidity and body mass index (BMI) of 50.0 to 59.9 in adult,unspecified obesity type Encounter for subsequent annual wellness visit (AWV) in Medicare patient- Primary Type 2 diabetes mellitus with unspecified complications Pulmonary emphysema, unspecified emphysema type ([facility]) Moderate persistent asthma without complication ([facility]) Primary hypertension ([facility]) Unspecified essential hypertension Type 2 diabetes mellitus with complication, with long-term current use of insulin ([facility]) Class 3 severe obesity with serious comorbidity and body mass index (BMI) of 50.0 to 59.9 in adult,unspecified obesity type Tobacco user Tobacco use disorder Other headache syndrome Malignant neoplasm of cervix uteri, unspecified Other specified disorders of adrenal gland Major depressive disorder, single episode, mild (HCC) ([facility]) Major depressive disorder, single episode, mild Non-pressure chronic ulcer of other part of left lower leg with fat layer exposed Chronic respiratory failure, unspecified whether with hypoxia or hypercapnia Disorder of adrenal gland, unspecified Non-pressure chronic ulcer of other part of right lower leg limited to breakdown of skin ([facility]) Non-recurrent acute suppurative otitis media of left ear without spontaneous rupture of tympanic membrane Primary hypertension ([facility])- Primary Unspecified essential hypertension Insomnia Insomnia, unspecified Type 2 diabetes mellitus with complication, with long-term current use of insulin ([facility]) Non-seasonal allergic rhinitis, unspecified trigger Type 2 diabetes mellitus with unspecified complications Anxiety and depression ([facility]) Gastro-esophageal reflux disease without esophagitis Edema, unspecified Edema Diabetic polyneuropathy associated with type 2 diabetes mellitus ([facility]) Chronic obstructive pulmonary disease, unspecified Pulmonary emphysema, unspecified emphysema type ([facility]) Bilateral lower extremity edema Tobacco user Tobacco use disorder Hyperpigmentation of skin Other dyschromia Primary hypertension ([facility])- Primary Unspecified essential hypertension Diabetic polyneuropathy associated with type 2 diabetes mellitus ([facility]) Pulmonary emphysema, unspecified emphysema type ([facility]) Critical limb ischemia of right lower extremity ([facility]) PAD (peripheral artery disease) ([facility]) Unspecified peripheral vascular disease Gastroesophageal reflux disease, unspecified whether esophagitis present Bilateral lower extremity edema Venous ulcer of right leg ([facility]) Type 2 diabetes mellitus with complication, with long-term current use of insulin ([facility]) Tobacco user Tobacco use disorder Encounter for smoking cessation counseling Kidney stone Calculus of kidney Adrenal mass 1 cm to 4 cm in diameter ([facility]) Radiculopathy, lumbar region Thoracic or lumbosacral neuritis or radiculitis, unspecified Non-seasonal allergic rhinitis, unspecified trigger Type 2 diabetes mellitus with unspecified complications Anxiety and depression ([facility])- Primary Morbid (severe) obesity due to excess calories ([facility]) Body mass index (BMI) 50.0-59.9, adult ([facility]) Malignant neoplasm of cervix uteri, unspecified Diabetic polyneuropathy associated with type 2 diabetes mellitus ([facility]) Chronic diastolic heart failure ([facility]) Chronic diastolic heart failure Primary hypertension ([facility]) Unspecified essential hypertension 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 Gastroesophageal reflux disease, unspecified whether esophagitis present Bilateral lower extremity edema Type 2 diabetes mellitus with complication, with long-term current use of insulin ([facility]) Tobacco user Tobacco use disorder Mixed hyperlipidemia ([facility]) Mixed hyperlipidemia Gout, unspecified cause, unspecified chronicity, unspecified site Vitamin deficiency Unspecified vitamin deficiency Gastro-esophageal reflux disease without esophagitis Edema, unspecified Edema Hyperlipidemia, unspecified ([facility]) Encounter for smoking cessation counseling Venous ulcer of right leg ([facility]) Antibiotic-induced yeast infection Chronic obstructive pulmonary disease, unspecified documented in this encounter [facility] HealthcareEvaluation note* Diagnosis Obstructive sleep apnea- Primary Obstructive sleep apnea (adult) (pediatric) Pulmonary emphysema, unspecified emphysema type ([facility]) Primary hypertension ([facility]) Unspecified essential hypertension Type 2 diabetes mellitus with complication, with long-term current use of insulin ([facility]) Anxiety and depression ([facility]) Bilateral lower extremity edema Pulmonary emphysema, unspecified emphysema type ([facility])- Primary Primary hypertension ([facility]) Unspecified essential hypertension Class 3 severe obesity with serious comorbidity and body mass index (BMI) of 50.0 to 59.9 in adult,unspecified obesity type Obstructive sleep apnea Obstructive sleep apnea (adult) (pediatric) Pulmonary hypertension ([facility]) Other chronic pulmonary heart diseases Tobacco user Tobacco use disorder Cardiomegaly Primary hypertension ([facility])- Primary Unspecified essential hypertension Gastroesophageal reflux disease, unspecified whether esophagitis present Type 2 diabetes mellitus with complication, with long-term current use of insulin ([facility]) Mixed hyperlipidemia ([facility]) Mixed hyperlipidemia Tobacco user Tobacco use disorder Encounter for screening mammogram for malignant neoplasm of breast Chronic obstructive pulmonary disease, unspecified Other specified chronic obstructive pulmonary disease Anxiety and depression ([facility]) Edema, unspecified Edema Hyperlipidemia, unspecified [place] [place] Diabetic polyneuropathy associated with type 2 diabetes mellitus ([facility]) Gout, unspecified cause, unspecified chronicity, unspecified site Non-seasonal allergic rhinitis, unspecified trigger Bilateral lower extremity edema COPD exacerbation ([facility]) Obstructive chronic bronchitis with exacerbation Pulmonary emphysema, unspecified emphysema type ([facility]) Venous insufficiency Unspecified venous (peripheral) insufficiency Candidiasis of breast COPD exacerbation [place] [place] Primary Obstructive chronic bronchitis with exacerbation Pulmonary hypertension ([facility]) Other chronic pulmonary heart diseases Class 3 severe obesity with serious comorbidity and body mass index (BMI) of 50.0 to 59.9 in adult,unspecified obesity type Encounter for subsequent annual wellness visit (AWV) in Medicare patient- Primary Type 2 diabetes mellitus with unspecified complications Pulmonary emphysema, unspecified emphysema type ([facility]) Moderate persistent asthma without complication ([facility]) Primary hypertension ([facility]) Unspecified essential hypertension Type 2 diabetes mellitus with complication, with long-term current use of insulin ([facility]) Class 3 severe obesity with serious comorbidity and body mass index (BMI) of 50.0 to 59.9 in adult,unspecified obesity type Tobacco user Tobacco use disorder Other headache syndrome Malignant neoplasm of cervix uteri, unspecified Other specified disorders of adrenal gland Major depressive disorder, single episode, mild (HCC) ([facility]) Major depressive disorder, single episode, mild Non-pressure chronic ulcer of other part of left lower leg with fat layer exposed Chronic respiratory failure, unspecified whether with hypoxia or hypercapnia Disorder of adrenal gland, unspecified Non-pressure chronic ulcer of other part of right lower leg limited to breakdown of skin ([facility]) Non-recurrent acute suppurative otitis media of left ear without spontaneous rupture of tympanic membrane Primary hypertension ([facility])- Primary Unspecified essential hypertension Insomnia Insomnia, unspecified Type 2 diabetes mellitus with complication, with long-term current use of insulin ([facility]) Non-seasonal allergic rhinitis, unspecified trigger Type 2 diabetes mellitus with unspecified complications Anxiety and depression ([facility]) Gastro-esophageal reflux disease without esophagitis Edema, unspecified Edema Diabetic polyneuropathy associated with type 2 diabetes mellitus ([facility]) Chronic obstructive pulmonary disease, unspecified Pulmonary emphysema, unspecified emphysema type ([facility]) Bilateral lower extremity edema Tobacco user Tobacco use disorder Hyperpigmentation of skin Other dyschromia Primary hypertension ([facility])- Primary Unspecified essential hypertension Diabetic polyneuropathy associated with type 2 diabetes mellitus ([facility]) Pulmonary emphysema, unspecified emphysema type ([facility]) Critical limb ischemia of right lower extremity ([facility]) PAD (peripheral artery disease) ([facility]) Unspecified peripheral vascular disease Gastroesophageal reflux disease, unspecified whether esophagitis present Bilateral lower extremity edema Venous ulcer of right leg ([facility]) Type 2 diabetes mellitus with complication, with long-term current use of insulin ([facility]) Tobacco user Tobacco use disorder Encounter for smoking cessation counseling Kidney stone Calculus of kidney Adrenal mass 1 cm to 4 cm in diameter ([facility]) Radiculopathy, lumbar region Thoracic or lumbosacral neuritis or radiculitis, unspecified Non-seasonal allergic rhinitis, unspecified trigger Type 2 diabetes mellitus with unspecified complications Anxiety and depression ([facility])- Primary Morbid (severe) obesity due to excess calories ([facility]) Body mass index (BMI) 50.0-59.9, adult ([facility]) Malignant neoplasm of cervix uteri, unspecified Diabetic polyneuropathy associated with type 2 diabetes mellitus ([facility]) Chronic diastolic heart failure [place] [place] Chronic diastolic heart failure Primary hypertension ([facility] [place] Unspecified essential hypertension 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 Gastroesophageal reflux disease, unspecified whether esophagitis present Bilateral lower extremity edema Type 2 diabetes mellitus with complication, with long-term current use of insulin ([facility]) Tobacco user Tobacco use disorder Mixed hyperlipidemia ([facility] [place] Mixed hyperlipidemia Gout, unspecified cause, unspecified chronicity, unspecified site Vitamin deficiency Unspecified vitamin deficiency Gastro-esophageal reflux disease without esophagitis Edema, unspecified Edema Hyperlipidemia, unspecified ([facility] [place] Encounter for smoking cessation counseling Venous ulcer of right leg ([facility] [place] Antibiotic-induced yeast infection Primary hypertension ([facility] [place] Primary Unspecified essential hypertension Diabetic polyneuropathy associated with type 2 diabetes mellitus ([facility]) Chronic diastolic heart failure ([facility]) Chronic diastolic heart failure Bilateral lower extremity edema Morbid (severe) obesity due to excess calories ([facility]) Type 2 diabetes mellitus with complication, with long-term current use of insulin ([facility]) Anxiety and depression ([facility] [place] Cigarette nicotine dependence without complication Encounter for screening mammogram for malignant neoplasm of breast Insomnia Insomnia, unspecified Non-seasonal allergic rhinitis, unspecified trigger Type 2 diabetes mellitus with unspecified complications Vitamin D deficiency, unspecified Gastro-esophageal reflux disease without esophagitis PAD (peripheral artery disease) ([facility]) Unspecified peripheral vascular disease Gastroesophageal reflux disease, unspecified whether esophagitis present Venous ulcer of right leg ([facility]) documented in this encounter [facility] HealthcareEvaluation note* Diagnosis Obstructive sleep apnea- Primary Obstructive sleep apnea (adult) (pediatric) Pulmonary emphysema, unspecified emphysema type (HCC) Primary hypertension Unspecified essential hypertension Type 2 diabetes mellitus with complication, with long-term current use of insulin ([facility]) Anxiety and depression Bilateral lower extremity edema Pulmonary emphysema, unspecified emphysema type (HCC)- Primary Primary hypertension Unspecified essential hypertension Class 3 severe obesity with serious comorbidity and body mass index (BMI) of 50.0 to 59.9 in adult,unspecified obesity type [place] [place] [...] 50.0 to 59.9 in adult,unspecified obesity type ([facility] [place] [...] 50.0 to 59.9 in adult,unspecified obesity type ([facility]) Tobacco user Tobacco use disorder Other headache [...] with long-term current use of insulin ([facility]) Non-seasonal allergic rhinitis, unspecified trigger Type 2 [...] associated with type 2 diabetes mellitus ([facility]) Pulmonary emphysema, unspecified emphysema type ([facility]) Critical limb ischemia of right lower extremity ([facility]) PAD (peripheral artery disease) Unspecified peripheral vascular disease Gastroesophageal reflux disease, unspecified whether esophagitis present Bilateral lower extremity edema Venous ulcer of right leg (HCC) Type 2 diabetes mellitus with complication, with long-term current use of insulin ([facility]) Tobacco user Tobacco use disorder Encounter for smoking cessation counseling Kidney stone Calculus of kidney Adrenal mass 1 cm to 4 cm in diameter ([facility]) Radiculopathy, lumbar region Thoracic or lumbosacral neuritis or radiculitis, unspecified Non-seasonal allergic rhinitis, unspecified trigger Type 2 diabetes mellitus with unspecified complications ([facility]) Anxiety and depression- Primary Morbid (severe) obesity due to excess calories ([facility]) Body mass index (BMI) 50.0-59.9, adult ([facility]) Malignant neoplasm of cervix uteri, unspecified ([facility]) Diabetic polyneuropathy associated with type 2 diabetes mellitus ([facility]) Chronic diastolic heart failure (HCC) Chronic diastolic heart failure Primary hypertension Unspecified essential hypertension 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 ([facility]) Gastroesophageal reflux disease, unspecified whether esophagitis present Bilateral lower extremity edema Type 2 diabetes mellitus with complication, with long-term current use of insulin ([facility]) Tobacco user Tobacco use disorder Mixed hyperlipidemia [...] diabetes mellitus (HCC) Chronic diastolic heart failure ([facility]) Chronic diastolic heart failure Bilateral lower extremity edema Morbid (severe) obesity due to excess calories ([facility]) Type 2 diabetes mellitus with complication, with long-term current use of insulin ([facility]) Anxiety and depression Cigarette nicotine dependence without complication Encounter for screening mammogram for malignant neoplasm of breast Insomnia Insomnia, unspecified Non-seasonal allergic rhinitis, unspecified trigger Type 2 diabetes mellitus with unspecified complications ([facility]) Vitamin D deficiency, unspecified Gastro-esophageal reflux disease without esophagitis PAD (peripheral artery disease) Unspecified peripheral vascular disease Gastroesophageal reflux disease, unspecified whether esophagitis present Venous ulcer of right leg (HCC) Cellulitis of left lower extremity- Primary COPD exacerbation ([facility]) Obstructive chronic bronchitis with exacerbation Primary hypertension Unspecified essential hypertension Pulmonary hypertension ([facility]) Other chronic pulmonary heart diseases Morbid (severe) obesity due to excess calories ([facility]) Type 2 diabetes mellitus with complication, with long-term current use of insulin ([facility]) Anxiety and depression Fever, unspecified fever cause Hyperlipidemia, unspecified Tobacco user Tobacco use disorder Encounter for smoking cessation counseling documented in this encounter [facility] HealthcareEvaluation note* Diagnosis Obstructive sleep apnea- Primary Obstructive sleep apnea (adult) (pediatric) Pulmonary emphysema, unspecified emphysema type ([facility]) Primary hypertension ([facility]) Unspecified essential hypertension Type 2 diabetes mellitus with complication, with long-term current use of insulin ([facility]) Anxiety and depression ([facility]) Bilateral lower extremity edema Pulmonary emphysema, unspecified emphysema type ([facility])- Primary Primary hypertension ([facility]) Unspecified essential hypertension Class 3 severe obesity with serious comorbidity and body mass index (BMI) of 50.0 to 59.9 in adult,unspecified obesity type Obstructive sleep apnea Obstructive sleep apnea (adult) (pediatric) Pulmonary hypertension ([facility]) Other chronic pulmonary heart diseases Tobacco user Tobacco use disorder Cardiomegaly Primary hypertension ([facility])- Primary Unspecified essential hypertension Gastroesophageal reflux disease, unspecified whether esophagitis present Type 2 diabetes mellitus with complication, with long-term current use of insulin ([facility]) Mixed hyperlipidemia ([facility]) Mixed hyperlipidemia Tobacco user Tobacco use disorder Encounter for screening mammogram for malignant neoplasm of breast Chronic obstructive pulmonary disease, unspecified Other specified chronic obstructive pulmonary disease Anxiety and depression ([facility]) Edema, unspecified Edema Hyperlipidemia, unspecified ([facility]) Diabetic polyneuropathy associated with type 2 diabetes mellitus ([facility]) Gout, unspecified cause, unspecified chronicity, unspecified site Non-seasonal allergic rhinitis, unspecified trigger Bilateral lower extremity edema COPD exacerbation ([facility]) Obstructive chronic bronchitis with exacerbation Pulmonary emphysema, unspecified emphysema type (CMS/HCC) Venous insufficiency Unspecified venous (peripheral) insufficiency Candidiasis of breast COPD exacerbation (CMS/HCC)- Primary Obstructive chronic bronchitis with exacerbation Pulmonary hypertension ([facility]) Other chronic pulmonary heart diseases Class 3 severe obesity with serious comorbidity and body mass index (BMI) of 50.0 to 59.9 in adult,unspecified obesity type Encounter for subsequent annual wellness visit (AWV) in [employer] patient- Primary Type 2 diabetes mellitus with unspecified complications Pulmonary emphysema, unspecified emphysema type ([facility]) Moderate persistent asthma without complication ([facility]) Primary hypertension ([facility]) Unspecified essential hypertension Type 2 diabetes mellitus with complication, with long-term current use of insulin ([facility]) Class 3 severe obesity with serious comorbidity and body mass index (BMI) of 50.0 to 59.9 in adult,unspecified obesity type Tobacco user Tobacco use disorder Other headache syndrome Malignant neoplasm of cervix uteri, unspecified Other specified disorders of adrenal gland Major depressive disorder, single episode, mild (HCC) ([facility]) Major depressive disorder, single episode, mild Non-pressure chronic ulcer of other part of left lower leg with fat layer exposed Chronic respiratory failure, unspecified whether with hypoxia or hypercapnia Disorder of adrenal gland, unspecified Non-pressure chronic ulcer of other part of right lower leg limited to breakdown of skin ([facility]) Non-recurrent acute suppurative otitis media of left ear without spontaneous rupture of tympanic membrane Primary hypertension ([facility])- Primary Unspecified essential hypertension Insomnia Insomnia, unspecified Type 2 diabetes mellitus with complication, with long-term current use of insulin ([facility]) Non-seasonal allergic rhinitis, unspecified trigger Type 2 diabetes mellitus with unspecified complications Anxiety and depression ([facility]) Gastro-esophageal reflux disease without esophagitis Edema, unspecified Edema Diabetic polyneuropathy associated with type 2 diabetes mellitus ([facility]) Chronic obstructive pulmonary disease, unspecified Pulmonary emphysema, unspecified emphysema type (CMS/HCC) Bilateral lower extremity edema Tobacco user Tobacco use disorder Hyperpigmentation of skin Other dyschromia Primary hypertension (CMS/HCC)- Primary Unspecified essential hypertension Diabetic polyneuropathy associated with type 2 diabetes mellitus ([facility]) Pulmonary emphysema, unspecified emphysema type ([facility]) Critical limb ischemia of right lower extremity ([facility]) PAD (peripheral artery disease) ([facility]) Unspecified peripheral vascular disease Gastroesophageal reflux disease, unspecified whether esophagitis present Bilateral lower extremity edema Venous ulcer of right leg ([facility]) Type 2 diabetes mellitus with complication, with long-term current use of insulin ([facility]) Tobacco user Tobacco use disorder Encounter for smoking cessation counseling Kidney stone Calculus of kidney Adrenal mass 1 cm to 4 cm in diameter ([facility]) Radiculopathy, lumbar region Thoracic or lumbosacral neuritis or radiculitis, unspecified Non-seasonal allergic rhinitis, unspecified trigger Type 2 diabetes mellitus with unspecified complications Anxiety and depression ([facility])- Primary Morbid (severe) obesity due to excess calories ([facility]) Body mass index (BMI) 50.0-59.9, adult ([facility]) Malignant neoplasm of cervix uteri, unspecified Diabetic polyneuropathy associated with type 2 diabetes mellitus ([facility]) Chronic diastolic heart failure ([facility]) Chronic diastolic heart failure Primary hypertension ([facility]) Unspecified essential hypertension 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 Gastroesophageal reflux disease, unspecified whether esophagitis present Bilateral lower extremity edema Type 2 diabetes mellitus with complication, with long-term current use of insulin ([facility]) Tobacco user Tobacco use disorder Mixed hyperlipidemia ([facility]) Mixed hyperlipidemia Gout, unspecified cause, unspecified chronicity, unspecified site Vitamin deficiency Unspecified vitamin deficiency Gastro-esophageal reflux disease without esophagitis Edema, unspecified Edema Hyperlipidemia, unspecified [place] [place] Encounter for smoking cessation counseling Venous ulcer of right leg ([facility]) Antibiotic-induced yeast infection Primary hypertension [place] [place] Primary Unspecified essential hypertension Diabetic polyneuropathy associated with type 2 diabetes mellitus ([facility]) Chronic diastolic heart failure ([facility]) Chronic diastolic heart failure Bilateral lower extremity edema Morbid (severe) obesity due to excess calories ([facility]) Type 2 diabetes mellitus with complication, with long-term current use of insulin ([facility]) Anxiety and depression ([facility]) Cigarette nicotine dependence without complication Encounter for screening mammogram for malignant neoplasm of breast Insomnia Insomnia, unspecified Non-seasonal allergic rhinitis, unspecified trigger Type 2 diabetes mellitus with unspecified complications Vitamin D deficiency, unspecified Gastro-esophageal reflux disease without esophagitis PAD (peripheral artery disease) ([facility]) Unspecified peripheral vascular disease Gastroesophageal reflux disease, unspecified whether esophagitis present Venous ulcer of right leg ([facility]) Cellulitis of left lower extremity- Primary COPD exacerbation ([facility]) Obstructive chronic bronchitis with exacerbation Primary hypertension ([facility]) Unspecified essential hypertension Pulmonary hypertension ([facility]) Other chronic pulmonary heart diseases Morbid (severe) obesity due to excess calories ([facility]) Type 2 diabetes mellitus with complication, with long-term current use of insulin ([facility]) Anxiety and depression ([facility]) Fever, unspecified fever cause documented in this encounter [facility] HealthcareEvaluation note* Diagnosis Obstructive sleep apnea- Primary Obstructive sleep apnea (adult) (pediatric) Pulmonary emphysema, unspecified emphysema type (HCC) Primary hypertension Unspecified essential hypertension Type 2 diabetes mellitus with complication, with long-term current use of insulin ([facility]) Anxiety and depression Bilateral lower extremity edema Pulmonary emphysema, unspecified emphysema type (HCC)- Primary Primary hypertension Unspecified essential hypertension Class 3 severe obesity with serious comorbidity and body mass index (BMI) of 50.0 to 59.9 in adult,unspecified obesity type ([facility]) Obstructive sleep apnea Obstructive sleep apnea (adult) [...] 50.0 to 59.9 in adult,unspecified obesity type [place] [place]counter for subsequent annual wellness visit (AWV) in Medicare patient- Primary Type 2 diabetes mellitus with unspecified complications ([facility]) Pulmonary emphysema, unspecified emphysema type ([facility]) Moderate persistent asthma without complication (HCC) Primary hypertension Unspecified essential hypertension Type 2 diabetes mellitus with complication, with long-term current use of insulin ([facility]) Class 3 severe obesity with serious comorbidity and body mass index (BMI) of 50.0 to 59.9 in adult,unspecified obesity type [place] [place] Tobacco user Tobacco use disorder Other headache syndrome Malignant neoplasm of cervix uteri, unspecified (HCC) Other specified disorders of adrenal gland ([facility]) Major depressive disorder, single episode, mild Major depressive disorder, single episode, mild Non-pressure chronic ulcer of other part of left lower leg with fat layer exposed ([facility]) Chronic respiratory failure, unspecified whether with hypoxia or hypercapnia ([facility]) Disorder of adrenal gland, unspecified ([facility]) Non-pressure chronic ulcer of other part of right lower leg limited to breakdown of skin ([facility]) Non-recurrent acute suppurative otitis media of left ear without spontaneous rupture of tympanic membrane Primary hypertension- Primary Unspecified essential hypertension Insomnia Insomnia, unspecified Type 2 diabetes mellitus with complication, with long-term current use of insulin ([facility]) Non-seasonal allergic rhinitis, unspecified trigger Type 2 diabetes mellitus with unspecified complications ([facility]) Anxiety and depression Gastro-esophageal reflux disease without esophagitis Edema, unspecified Edema Diabetic polyneuropathy associated with type 2 diabetes mellitus ([facility]) Chronic obstructive pulmonary disease, unspecified (HCC) Pulmonary emphysema, unspecified emphysema type ([facility]) Bilateral lower extremity edema Tobacco user Tobacco use disorder Hyperpigmentation of skin Other dyschromia Primary hypertension- Primary Unspecified essential hypertension Diabetic polyneuropathy associated with type 2 diabetes mellitus ([facility]) Pulmonary emphysema, unspecified emphysema type (HCC) Critical limb ischemia of right lower extremity ([facility]) PAD (peripheral artery disease) Unspecified peripheral vascular disease Gastroesophageal reflux disease, unspecified whether esophagitis present Bilateral lower extremity edema Venous ulcer of right leg ([facility]) Type 2 diabetes mellitus with complication, with long-term current use of insulin ([facility]) Tobacco user Tobacco use disorder Encounter for smoking cessation counseling Kidney stone Calculus of kidney Adrenal mass 1 cm to 4 cm in diameter ([facility]) Radiculopathy, lumbar region Thoracic or lumbosacral neuritis or radiculitis, unspecified Non-seasonal allergic rhinitis, unspecified trigger Type 2 diabetes mellitus with unspecified complications ([facility]) Anxiety and depression- Primary Morbid (severe) obesity due to excess calories ([facility]) Body mass index (BMI) 50.0-59.9, adult ([facility]) Malignant neoplasm of cervix uteri, unspecified (HCC) [...] with long-term current use of insulin ([facility]) Tobacco user Tobacco use disorder Mixed hyperlipidemia Mixed hyperlipidemia Gout, unspecified cause, unspecified chronicity, unspecified site Vitamin deficiency Unspecified vitamin deficiency Gastro-esophageal reflux disease without esophagitis Edema, unspecified Edema Hyperlipidemia, unspecified Encounter for smoking cessation counseling Venous ulcer of right leg ([facility]) Antibiotic-induced yeast infection Primary hypertension- Primary Unspecified essential hypertension Diabetic polyneuropathy associated with type 2 diabetes mellitus (HCC) Chronic diastolic heart failure (HCC) Chronic diastolic heart failure Bilateral lower extremity edema Morbid (severe) obesity due to excess calories ([facility]) Type 2 diabetes mellitus with complication, with long-term current use of insulin ([facility]) Anxiety and depression Cigarette nicotine dependence without [...] Morbid (severe) obesity due to excess calories ([facility]) Type 2 diabetes mellitus with complication, with long-term current use of insulin ([facility]) Anxiety and depression Fever, unspecified fever cause Encounter for subsequent annual wellness visit (AWV) in Medicare patient- Primary Mixed hyperlipidemia Mixed hyperlipidemia Type 2 diabetes mellitus with complication, with long-term current use of insulin ([facility]) Bilateral lower extremity edema Gastro-esophageal reflux disease [...] Morbid (severe) obesity due to excess calories ([facility]) Type 2 diabetes mellitus with hyperglycemia, with [...] 50.0 to 59.9 in adult,unspecified obesity type ([facility]) Obstructive sleep apnea Obstructive sleep apnea (adult) [...] 50.0 to 59.9 in adult,unspecified obesity type [place] [place] Encounter for subsequent annual wellness visit (AWV) in Medicare patient- Primary Type 2 diabetes mellitus with unspecified complications ([facility]) Pulmonary emphysema, unspecified emphysema type ([facility]) Moderate persistent asthma without complication (HCC) Primary hypertension Unspecified essential hypertension Type 2 diabetes mellitus with complication, with long-term current use of insulin ([facility]) Class 3 severe obesity with serious comorbidity and body mass index (BMI) of 50.0 to 59.9 in adult,unspecified obesity type ([facility] [place] Tobacco user Tobacco use disorder Other headache syndrome Malignant neoplasm of cervix uteri, unspecified (HCC) Other specified disorders of adrenal gland ([facility]) Major depressive disorder, single episode, mild Major depressive disorder, single episode, mild Non-pressure chronic ulcer of other part of left lower leg with fat layer exposed ([facility]) Chronic respiratory failure, unspecified whether with hypoxia or hypercapnia ([facility]) Disorder of adrenal gland, unspecified ([facility]) Non-pressure chronic ulcer of other part of right lower leg limited to breakdown of skin ([facility]) Non-recurrent acute suppurative otitis media of left ear without spontaneous rupture of tympanic membrane Primary hypertension- Primary Unspecified essential hypertension Insomnia Insomnia, unspecified Type 2 diabetes mellitus with complication, with long-term current use of insulin ([facility]) Non-seasonal allergic rhinitis, unspecified trigger Type 2 diabetes mellitus with unspecified complications ([facility]) Anxiety and depression Gastro-esophageal reflux disease without esophagitis Edema, unspecified Edema Diabetic polyneuropathy associated with type 2 diabetes mellitus ([facility]) Chronic obstructive pulmonary disease, unspecified ([facility]) Pulmonary emphysema, unspecified emphysema type ([facility]) Bilateral lower extremity edema Tobacco user Tobacco use disorder Hyperpigmentation of skin Other dyschromia Primary hypertension- Primary Unspecified essential hypertension Diabetic polyneuropathy associated with type 2 diabetes mellitus ([facility]) Pulmonary emphysema, unspecified emphysema type (HCC) Critical limb ischemia of right lower extremity ([facility]) PAD (peripheral artery disease) Unspecified peripheral vascular disease Gastroesophageal reflux disease, unspecified whether esophagitis present Bilateral lower extremity edema Venous ulcer of right leg ([facility]) Type 2 diabetes mellitus with complication, with long-term current use of insulin ([facility]) Tobacco user Tobacco use disorder Encounter for smoking cessation counseling Kidney stone Calculus of kidney Adrenal mass 1 cm to 4 cm in diameter ([facility]) Radiculopathy, lumbar region Thoracic or lumbosacral neuritis or radiculitis, unspecified Non-seasonal allergic rhinitis, unspecified trigger Type 2 diabetes mellitus with unspecified complications (HCC) Anxiety and depression- Primary Morbid (severe) obesity due to excess calories ([facility]) Body mass index (BMI) 50.0-59.9, adult ([facility]) Malignant neoplasm of cervix uteri, unspecified (HCC) [...] Morbid (severe) obesity due to excess calories ([facility]) Type 2 diabetes mellitus with complication, with [...] Morbid (severe) obesity due to excess calories ([facility]) Type 2 diabetes mellitus with complication, with [...] with long-term current use of insulin ([facility]) Vitamin D deficiency Primary hypertension Unspecified essential hypertension Insulin long-term use ([facility]) Encounter for long-term (current) use of insulin Hyperlipemia, mixed Mixed hyperlipidemia Microalbuminuria Proteinuria Class 3 severe obesity due to excess calories with serious comorbidity and body mass index (BMI) of50.0 to 59.9 in adult ([facility] [place] documented in this encounter [facility] HealthcareEvaluation note* Diagnosis Obstructive sleep apnea- Primary Obstructive sleep apnea (adult) (pediatric) Pulmonary emphysema, unspecified emphysema type (HCC) Primary hypertension Unspecified essential hypertension Type 2 diabetes mellitus with complication, with long-term current use of insulin ([facility]) Anxiety and depression Bilateral lower extremity edema Pulmonary emphysema, unspecified emphysema type (HCC)- Primary Primary hypertension Unspecified essential hypertension Class 3 severe obesity with serious comorbidity and body mass index (BMI) of 50.0 to 59.9 in adult,unspecified obesity type ([facility] [place] Obstructive sleep apnea Obstructive sleep apnea (adult) (pediatric) Pulmonary hypertension (HCC) Other chronic pulmonary heart diseases Tobacco user Tobacco use disorder Cardiomegaly Primary hypertension- Primary Unspecified essential hypertension Gastroesophageal reflux disease, unspecified whether esophagitis present Type 2 diabetes mellitus with complication, with long-term current use of insulin ([facility]) Mixed hyperlipidemia Mixed hyperlipidemia Tobacco user Tobacco use disorder Encounter for screening mammogram for malignant neoplasm of breast Chronic obstructive pulmonary disease, unspecified (HCC) Other specified chronic obstructive pulmonary disease (HCC) Anxiety and depression Edema, unspecified Edema Hyperlipidemia, unspecified Diabetic polyneuropathy associated with type 2 diabetes mellitus ([facility]) Gout, unspecified cause, unspecified chronicity, unspecified site [...] 50.0 to 59.9 in adult,unspecified obesity type ([facility] [place] Encounter for subsequent annual wellness visit (AWV) in Medicare patient- Primary Type 2 diabetes mellitus with unspecified complications (HCC) Pulmonary emphysema, unspecified emphysema type ([facility]) Moderate persistent asthma without complication (HCC) Primary hypertension Unspecified essential hypertension Type 2 diabetes mellitus with complication, with long-term current use of insulin ([facility]) Class 3 severe obesity with serious comorbidity and body mass index (BMI) of 50.0 to 59.9 in adult,unspecified obesity type ([facility] [place] Tobacco user Tobacco use disorder Other headache syndrome Malignant neoplasm of cervix uteri, unspecified (HCC) Other specified disorders of adrenal gland ([facility]) Major depressive disorder, single episode, mild Major depressive disorder, single episode, mild Non-pressure chronic ulcer of other part of left lower leg with fat layer exposed ([facility]) Chronic respiratory failure, unspecified whether with hypoxia or hypercapnia ([facility]) Disorder of adrenal gland, unspecified ([facility]) Non-pressure chronic ulcer of other part of right lower leg limited to breakdown of skin ([facility]) Non-recurrent acute suppurative otitis media of left ear without spontaneous rupture of tympanic membrane Primary hypertension- Primary Unspecified essential hypertension Insomnia Insomnia, unspecified Type 2 diabetes mellitus with complication, with long-term current use of insulin ([facility]) Non-seasonal allergic rhinitis, unspecified trigger Type 2 diabetes mellitus with unspecified complications ([facility]) Anxiety and depression Gastro-esophageal reflux disease without esophagitis Edema, unspecified Edema Diabetic polyneuropathy associated with type 2 diabetes mellitus (HCC) Chronic obstructive pulmonary disease, unspecified (HCC) Pulmonary emphysema, unspecified emphysema type ([facility]) Bilateral lower extremity edema Tobacco user Tobacco use disorder Hyperpigmentation of skin Other dyschromia Primary hypertension- Primary Unspecified essential hypertension Diabetic polyneuropathy associated with type 2 diabetes mellitus (HCC) Pulmonary emphysema, unspecified emphysema type (HCC) Critical limb ischemia of right lower extremity ([facility]) PAD (peripheral artery disease) Unspecified peripheral vascular disease Gastroesophageal reflux disease, unspecified whether esophagitis present Bilateral lower extremity edema Venous ulcer of right leg ([facility]) Type 2 diabetes mellitus with complication, with long-term current use of insulin ([facility]) Tobacco user Tobacco use disorder Encounter for smoking cessation counseling Kidney stone Calculus of kidney Adrenal mass 1 cm to 4 cm in diameter ([facility]) Radiculopathy, lumbar region Thoracic or lumbosacral neuritis or radiculitis, unspecified Non-seasonal allergic rhinitis, unspecified trigger Type 2 diabetes mellitus with unspecified complications ([facility]) Anxiety and depression- Primary Morbid (severe) obesity due to excess calories ([facility]) Body mass index (BMI) 50.0-59.9, adult ([facility]) Malignant neoplasm of cervix uteri, unspecified ([facility]) Diabetic polyneuropathy associated with type 2 diabetes mellitus ([facility]) Chronic diastolic heart failure ([facility]) Chronic diastolic heart failure Primary hypertension Unspecified essential hypertension 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 ([facility]) Gastroesophageal reflux disease, unspecified whether esophagitis present Bilateral lower extremity edema Type 2 diabetes mellitus with complication, with long-term current use of insulin ([facility]) Tobacco user Tobacco use disorder Mixed hyperlipidemia Mixed hyperlipidemia Gout, unspecified cause, unspecified chronicity, unspecified site Vitamin deficiency Unspecified vitamin deficiency Gastro-esophageal reflux disease without esophagitis Edema, unspecified Edema Hyperlipidemia, unspecified Encounter for smoking cessation counseling Venous ulcer of right leg ([facility]) Antibiotic-induced yeast infection Primary hypertension- Primary Unspecified essential hypertension Diabetic polyneuropathy associated with type 2 diabetes mellitus ([facility]) Chronic diastolic heart failure (HCC) Chronic diastolic heart failure Bilateral lower extremity edema Morbid (severe) obesity due to excess calories ([facility]) Type 2 diabetes mellitus with complication, with long-term current use of insulin ([facility]) Anxiety and depression Cigarette nicotine dependence without complication Encounter for screening mammogram for malignant neoplasm of breast Insomnia Insomnia, unspecified Non-seasonal allergic rhinitis, unspecified trigger Type 2 diabetes mellitus with unspecified complications ([facility]) Vitamin D deficiency, unspecified Gastro-esophageal reflux disease without esophagitis PAD (peripheral artery disease) Unspecified peripheral vascular disease Gastroesophageal reflux disease, unspecified whether esophagitis present Venous ulcer of right leg ([facility]) Cellulitis of left lower extremity- Primary COPD exacerbation ([facility]) Obstructive chronic bronchitis with exacerbation Primary hypertension [...] Morbid (severe) obesity due to excess calories ([facility]) Tobacco user Tobacco use disorder Encounter for smoking cessation counseling documented in this encounter [facility] HealthcareEvaluation noteNo assessment information availableFirProtestant Hospital Work Phone: History general Narrative - Reported* Type Description Date Medical History diabetes mallitus Medical HistoryCOPDMedical HistoryADRENAL MASS 1 CM TO 4 CM IN DIAMETERMedical HistoryARTHRITISMedical HistoryASTHMAMedical HistoryHEADACHEMedical History HYPERTENSIONMedical HistoryKIDNEY STONESMedical HistoryLEFT FLANK PAINMedical HistoryMIXED INCONTINENCEMedical HistoryPROTEINURIAMedical HistorySMOKERSurgical [id number] Historytoe surgerySurgical HistoryLAPAROSCOPIC CHOLECYSTECTOMYHospitalization [id number] HistorySEE [place]OVE [place] MAD Incubator Other Hospital course Narrative No data available for this section [facility] progress note No data available for this section [facility] reason for referral (narrative) , Referral to Dr. Cortés Referred by: REGLA PHIPPS, Elbert Joya [facility] reason for referral (narrative)No reason for referral information availableFirParkview Health [facility] Work Phone: Advance Directives No Advanced Directives Records FoundDocuments on File TypeDate RecordedPatient RepresentativeExplanationAdvance Directives and Living WillPower of Customizer Advance Directive Response Recorded Date/ Time Advance [...] and content) DATE CREATED AUTHOR 10/30/2019 [facility] DATE CREATED AUTHOR AUTHOR'S ORGANIZ ATION 09/15/2020 [facility] DATE CREATED AUTHOR AUTHOR'S ORGANIZ ATION 12/19/2022 [facility] DATE CREATED AUTHOR AUTHOR'S ORGANIZ ATION 01/30/2025 [facility] DATE CREATED AUTHOR AUTHOR'S ORGANIZ ATION 04/12/2025 [facility] DATE CREATED AUTHOR AUTHOR'S ORGANIZ ATION 04/29/2025 [facility] DATE CREATED AUTHOR AUTHOR'S ORGANIZ ATION 05/08/2025 [facility] Care Team (unrecognized sect ion and content) Team MemberRelationshipSpecialtyStart DateEnd Date Ty Amin MD PCP - GeneralFamily Medicine01/05/23Team MemberRelationshipSpecialtyStart DateEnd Date Ty Amin MD PCP - [facility]Chi [facility]01/05/23Team MemberRelationshipSpecialtyStart DateEnd Date Ty Amin MD [address] [place] [address] PCP - GeneralFamily Medicine09/20/23 Mckayla Blas NP [address] [place] [address] PCP - [facility]/ Mckayla Blas NP [address] [place] [address] Nurse Pract[facility]erChi [facility] Medicine09/20/23Team MemberRelationshipSpecialtyStart DateEnd Date Ty Amin MD [address] [place] [address] PCP - Generalmi Medicine09/20/23 Mckayla Blas NP [address] [place] [address] PCP - [facility]/ Mckayla Blas NP [address] [place] [address] [facility]/23Team MemberRelationshipSpecialtyStart DateEnd Date Ty Amin MD [address] [place] [address] PCP - [facility]09/20/23 Mckayla Blas NP [address] [place] [address] [place] [address] Mckayla Blas NP [address] [place] [address] [facility]09/20/23Team MemberRelationshipSpecialtyStart DateEnd Date Ty Amin MD [address] [place] [address] PCP - [facility]09/20/23 Mckayla Blas NP [address] [place] [address] [place] [address] Mckayla Blas NP [address] [place] [address] [facility]09/20/23Team MemberRelationshipSpecialtyStart DateEnd Date Ty Amin MD [address] [place] [address] PCP - [facility]09/20/23 Mckayla Blas NP [address] [place] [address] [place] [address]/ Mckayla Blas NP [address] [place] [address] [facility]09/20/23Team MemberRelationshipSpecialtyStart DateEnd Date Ty Amin MD [address] [place] [address] PCP - [facility]09/20/23 Mckayla Blas NP [address] [place] [address] [place] [address]/ Mckayla Blas NP [address] [place] [address] [facility]09/20/23Team MemberRelationshipSpecialtyStart DateEnd Date Ty Amin MD [address] [place] [address] PCP - [facility]09/20/23 Mkcayla Blas NP [address] [place] [address] [facility] - [facility]/ Mckayla Blas NP [address] [place] [address] [facility]09/20/23Team MemberRelationshipSpecialtyStart DateEnd Date Ty Amin MD [address] [place] [address] PCP - [facility]09/20/23 Mckayla Blas NP [address] [place] [address] [place] [address]/ Mckayla Blas NP [address] [place] [address] [facility]09/20/23Team MemberRelationshipSpecialtyStart DateEnd Date Ty Amin MD [address] [place] [address] PCP - [facility]09/20/23 Mckayla Blas NP [address] [place] [address] PCP [facility]/ Mckayla Blas NP [address] [place] [address] [facility]09/20/23Team MemberRelationshipSpecialtyStart DateEnd Date Ty Amin MD [address] [place] [address] [facility]/23 Mckayla Blas NP [address] [place] [address] PCP - [facility] Mckayla Blas NP [address] [place] [address] [facility]09/20/23Te MemberRelationshipSpecialtyStart DateEnd Date Ty Amin MD [address] [place] [address] [facility]09/20/23 Mckayla Blas NP [address] [place] [address] PCP - [facility]/ Mckayla Blas NP [address] [place] [address] [facility]09/20/23Team MemberRelationshipSpecialtyStart DateEnd Date Ty Amin MD [address] [place] [address] PCP - [facility]09/20/23 Mckayla Blas NP [address] [place] [address] [place] [address] Mckayla Blas NP [address] [place] [address] [facility]09/20/23Team MemberRelationshipSpecialtyStart DateEnd Date Ty Amin MD [address] [place] [address] PCP - [facility]09/20/23 Mckayla Blas NP [address] [place] [address] [place] [address] Mckayla Blas NP [address] [place] [address] [facility]09/20/23Team MemberRelationshipSpecialtyStart DateEnd Date Ty Amin MD [address] [place] [address] PCP - [facility]09/20/23 Mckayla Blas NP [address] [place] [address] [place] [address] Mckayla Blas NP [address] [place] [address] [facility]09/20/23Team MemberRelationshipSpecialtyStart DateEnd Date Ty Amin MD [address] [place] [address] PCP - [facility]09/20/23 Mckayla Blas NP [address] [place] [address] PCP [facility]/ Mckayla Blas NP [address] [place] [address] [facility]09/20/23Team MemberRelationshipSpecialtyStart DateEnd Date Ty Amin MD [address] [place] [address] PCP - [facility]09/20/23 Mckayla Blas NP [address] [place] [address] PCP [facility]/ Mckayla Blas NP [address] [place] [address] [facility]09/20/23Team MemberRelationshipSpecialtyStart DateEnd Date Ty Amin MD [address] [place] [address] PCP - [facility]09/20/23 Mckayla Blas NP [address] [place] [address] [place] [address]/ Mckayla Blas NP [address] [place] [address] [facility]09/20/23Team MemberRelationshipSpecialtyStart DateEnd Date Ty Amin MD [address] [place] [address] PCP - [facility]09/20/23 Mckayla Blas NP [address] [place] [address] [place] [address]/ Mckayla Blas NP [address] [place] [address] [facility]09/20/23Team MemberRelationshipSpecialtyStart DateEnd Date Ty Amin MD [address] [place] [address] PCP - [facility]09/20/23 Mckayla Blas NP [address] [place] [address] [facility]/ Mckayla Blas NP [address] [place] [address] [facility]09/20/23Team MemberRelationshipSpecialtyStart DateEnd Date Ty Amin MD [address] [place] [address] [facility]09/20/23 Mckayla Blas NP [address] [place] [address] [place] [address]/ Mckayla Blas NP [address] [place] [address] [facility]09/20/23Team MemberRelationshipSpecialtyStart DateEnd Date Ty Amin MD [address] [place] [address] PCP - [facility] Medicine09/20/23 Mckayla Blas NP [address] [place] [address] [facility]09/20/23Team MemberRelationshipSpecialtyStart DateEnd Date Ty Amin MD [address] [place] [address] PCP - GeneralFamily Medicine09/20/23 Mckayla Blas NP [address] [place] [address] [facility]09/20/23Team MemberRelationshipSpecialtyStart DateEnd Date Ty Amin MD [address] [place] [address] [facility] - [facility]09/20/23 Mckayla Blas NP [address] [place] [address] [facility]09/20/23Team MemberRelationshipSpecialtyStart DateEnd Date Ty Amin MD [address] [place] [address] [facility] - [facility]09/20/23 Mckayla Blas NP [address] [place] [address] [facility]09/20/23Team MemberRelationshipSpecialtyStart DateEnd Date Ty Amin MD [address] [place] [address] PCP - Generalmi Medicine09/20/23 Mckayla Blas NP [address] [place] [address] [facility]09/20/23 Team Status: Active Member Role Status Dates Mckayla Blas , PROGRAM COORDINATOR [employer] Primary Care Provider Active Team Status: Active Member Role Status Dates Mckayla Krystal Blas , PROGRAM CO[employer] Primary Care Provider Active Start: March 25, 2025 Price Arora , DOAttending ProviderActiveStart: March 25, 2025 Team Status: Active Member Role Status Dates Mckayla Krystal Blas , PROGRAM CO[employer] Primary Care Provider Active Start: March 26, 2025 SASHA WellsMAttending ProviderActiveStart: March 26, 2025 Team Status: Inactive Member Role Status Dates Mckayla Blas , PROGRAM CO[employer] Primary Care Provider Active Start: April 06, 2025 End: April 06, 2025Mckayla Blas , PROGRAM COORD[employer]-CAttending ProviderActiveStart: April 06, 2025 End: April 06, 2025 Team Status: Active Member Role/Relationship Status Dates Mckayla Krystal Blas , [employer]GRAM CO[employer] Primary Care Provider Active Team Status: Active Member Role/Relationship Status Dates Mckalya Krystal Blas , PROGRAM CO[employer] Primary Care Provider Active Start: March 25, 2025 Price Arora , DOAttending ProviderActiveStart: March 25, 2025 Team Status: Active Member Role/Relationship Status Dates Mckayla Krystal Blas , PROGRAM CO[employer] Primary Care Provider Active Start: March 26, 2025 SASHA WellsMAttending ProviderActiveStart: March 26, 2025 Team Status: Inactive Member Role/Relationship Status Dates Mckayla Krystal Blas , PROGRAM CO[employer] Primary Care Provider Active Start: April 06, 2025 End: April 06, 2025Mckayla Blas , PROGRAM COORDINATOR [employer]CAttending ProviderActiveStart: April 06, 2025 End: April 06, 2025 Team Status: Inactive Member Role/Relationship Status Dates Mckayla Krystal Blas , PROGRAM CO[employer] Primary Care Provider Active Start: April 29, 2025 End: April 29, 2025Mckayla Blas , PROGRAM COORD[employer]CAttending ProviderActiveStart: April 29, 2025 End: April 29, 2025Team MemberRelationshipSpecialtyStart DateEnd Date Ty Amin MD PCP - [facility]09/20/23 Mckayla Blas NP [address] [place] [address] PCP - [facility] Mckayla Blas NP [facility]09/20/23Team MemberRelationshipSpecialtyStart DateEnd Date Ty Amin MD PCP - [facility] Ty Amin MD PCP - [facility]09/20/23 Mckayla Blas NP [address] [place] [address] [place] [address] Mckayla Blas NP [facility]09/20/23Team MemberRelationshipSpecialtyStart DateEnd Date Ty Amin MD PCP - [facility]09/20/23 Mckayla Blas NP [address] [place] [address] Mckayla Blas NP Nurse PractitionerFamily [facility]09/20/23 REASON FOR VISIT (unrecogniz ed section [...] BE BASED ON THE PRIMARY CLINICAL RECORDS. [employer] provides no warranty or guarantee of the accuracy or completeness of information in this document.
== END 2025-05-15 10:02 | disposition home or self-care (01) ==
LOC: WC 10:02
PROVIDERS: PCP Nurse Practitioner; Visit Provider Physician Assistant
DX: I87.311 Chronic venous hypertension (idiopathic) with ulcer of right lower extremity (principal); L97.812 Non-pressure chronic ulcer of other part of right lower leg with fat layer exposed
CPT/HCPCS: 29581

== ENCOUNTER 2025-05-22 11:48 | Outpatient (OUT) | payer MEDICARE, SELFPAY | END 2025-05-22 11:49 | disposition home or self-care (01) | LOC: WC 11:49 | PROVIDERS: PCP Nurse Practitioner; Visit Provider Physician Assistant | DX: I87.332 Chronic venous hypertension (idiopathic) with ulcer and inflammation of left lower extremity (principal); L97.822 Non-pressure chronic ulcer of other part of left lower leg with fat layer exposed; I87.311 Chronic venous hypertension (idiopathic) with ulcer of right lower extremity; L97.812 Non-pressure chronic ulcer of other part of right lower leg with fat layer exposed | CPT/HCPCS: 29581 ==

== ENCOUNTER 2025-05-24 09:17 | Emergency (ER) | payer MEDICARE, SELFPAY ==
--- OUTSIDE RECORDS SUMMARY | 2024-12-02 04:30 | XMS_ITS ---
Author Organization The [facility] in [place] Address [address] [place] [address] Care Team Providers Care Harp Regulator Name Role Phone Mckayla lBas CNP Primary Care Provider Unavail Armando Carroll Unavailable [phone] REASON FOR VISIT 1YEAR-COPD Encounters Encounter Location Date Provider Diagnosis Pulmonary Medicine [place] [address] [place] [address] 12/02/2024 Armando Yañez Plan Of Treatment No Information Progress Notes * Mitzi MACIAS LDOB:[birth year] (54 yo F)Acc No.[id number]:12/02/2024 UNLOCKED PROGRESS NOTE Follow Up Patient: Mitzi COX :?Armando Yañez, DODOB:1970???Age:54 Y ???Sex:FemaleDate:12/02/2024Phone:[phone]:[address] [place], [place] [address]Pcp:Mckayla Blas CNP Subjective: * Chief Complaints: * 1 . 1YEAR-COPD. * Medical History: Objective: * Vitals: Assessment: Plan: * Treatment: * * Electronic signature of Armando Yañez DO on 05/24/2025 at 09:52 AM ESTSign off status: PendingVisit Status:?N/S N/C (No Show/No Charge) * Provider: Tray Yañez DO Date: 0 12/02/2024 Generated for Printing/Faxing/eTransmitting on:?05/24/2025 09:52 AM EST
[2025-05-24] VITALS (8 sets, daily range): BP systolic 160–170; BP diastolic 68–70; PULSE 74–86; TEMP 36.6; O2SAT 94–95; BMI 56.4
--- NOTE | 2025-05-24 09:39 | ECG_ITS ---
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 Measurements Intervals Weld Rate: 74 P: 62 ND: 198 QRS: -38 QRSD: 82 T: 62 QT: 402 QTc: 429 Interpretive Statements 1100 Sinus rhythm 3114 Cannot rule out anterior myocardial infarction, age undetermined 7200 Abnormal left axis deviation 9150 abnormal ECG Compared to ECG 03/26/2025 12:35:59 No significant changes Electronically Signed On 05-24-2025 14:38:33 EST by BHARAT AGUILAR M.D.
--- NOTE | 2025-05-24 09:39 | CT_ITS ---
The [address] [address] Patient Name: SINA NICHOLE MRN: [id number] date: 1970 Sex: F Assigned Patient Location: ER Current Patient Location: ED.[facility] Accession/Order Number: [id number] Exam Date: 05/24/2025 10:30 Report Date: 05/24/2025 10:51 At the request of: CICI SHELBY Procedure: CT angio chest CTA Chest with PE protocol TECHNIQUE: Axial imaging with 2-D and 3-D reconstruction. The CT exam was performed using one or more the following dose reduction techniques: Automated exposure control, adjustment of the MA and/or Kv according to patient size, or use of the iterative reconstruction technique. History: Right flank pain for 5 days. Right chest pain. Cough. COMPARISON: 08/31/2023 THYROID: Unremarkable TRACHEA AND BRONCHI: Patent ESOPHAGUS: Unremarkable. HEART: Similar mild cardiomegaly PERICARDIAL EFFUSION: None CORONARY ARTERY CALCIFICATION: None MEDIASTINUM: No adenopathy. No pneumoperitoneum. No mediastinal hematoma. PULMONARY ZANDRA: No hilar mass or adenopathy is seen. THORACIC AORTA Unremarkable PULMONARY EMBOLUS: None similar findings of pulmonary arterial hypertension. LUNG NODULE None LUNGS: Lungs are clear PLEURAL EFFUSION: None PNEUMOTHORAX: No pneumothorax seen. CHEST WALL: No abnormality AXILLA: Unremarkable BONY STRUCTURES Intact UPPER ABDOMEN: Similar left adrenal myolipoma. CT/CT angio chest IMPRESSION: No acute pulmonary embolus. Impression dictated by: Price Kevin M.D. 05/24/2025 10:51 AM Dictation Location: [place] Electronically authenticated by: [id number] Y Date: 05/24/2025 10:51
--- NOTE | 2025-05-24 09:40 | ED.GENADUL1 ---
HPI HPI - General Adult General Chief complaint: Back Pain/Injury Stated complaint: R FLANK PAIN Time Seen by Provider: 05/24/25 09:18 Source: patient Mode of arrival: Wheelchair Limitations: no limitations History of Present Illness HPI narrative: cc - pain right mid/upper back radiating around to right chest Pain started in the mid/upper back a few days ago. Last night the pain radiated into the right chest. She has chronic cough from my copd . No recent fever or chills. No recent worsening of the cough. No GI or symptoms. No recent fall, injury or change in activity to account for the pain. Related Data Home Medications ?Medication ?Instructions ?Recorded ?Confirmed acetaminophen 500 mg capsule 1,000 mg PO Q6H PRN fever or pain 03/20/23 12/04/24 amitriptyline 25 mg tablet 25 mg PO DAILY 03/20/23 05/24/25 aspirin 81 mg tablet,delayed 81 mg PO DAILY 03/20/23 05/24/25 release (Adult Aspirin Regimen) furosemide 40 mg tablet 40 mg PO DAILY 03/20/23 05/24/25 insulin aspart U-100 100 unit/mL 1 sliding scale dose subcut 03/20/23 05/24/25 (3 mL) subcutaneous pen (Novolog USEASDIRECTD FlexPen U-100 Insulin aspart) insulin glargine 100 unit/mL 58 unit subcut BID 03/20/23 05/24/25 subcutaneous solution (Lantus U-100 Insulin) lisinopril 20 mg tablet 20 mg PO DAILY 03/20/23 05/24/25 omeprazole 20 mg capsule,delayed 20 mg PO DAILY 03/20/23 05/24/25 release dapagliflozin propanediol 10 mg 10 mg PO .QD 09/10/23 05/24/25 tablet ergocalciferol (vitamin D2) 1,250 50,000 unit PO QWEEK 09/10/23 05/24/25 mcg (50,000 unit) capsule potassium chloride 10 mEq 10 meq PO .QD 09/10/23 05/24/25 capsule,extended release simvastatin 10 mg tablet 10 mg PO QAM 09/10/23 05/24/25 ammonium lactate 12 % lotion 1 applic topical DAILY 12/04/24 12/05/24 cephalexin 500 mg capsule 500 mg PO BID 05/24/25 05/24/25 Previous Rx's ?Medication ?Instructions ?Recorded duloxetine 60 mg capsule,delayed 60 mg PO BID #60 caps 04/05/23 release hydralazine 25 mg tablet 25 mg PO BID #60 tabs 09/13/23 diclofenac sodium 75 mg 75 mg PO BID PRN pain #60 tabs 01/07/25 tablet,delayed release hydrocodone 5 mg-acetaminophen 325 See Rx Instructions .Route 02/11/25 mg tablet .COMPLEX PRN pain #80 tabs pregabalin 300 mg capsule (Lyrica) 300 mg PO BID #60 caps 02/25/25 pregabalin 150 mg capsule (Lyrica) 150 mg PO DAILY #30 caps 03/13/25 baclofen 10 mg tablet 10 mg PO TID PRN muscle spasm #90 04/14/25 tabs hydrocodone 5 mg-acetaminophen 325 1 tab PO TID PRN pain #80 tabs 05/13/25 mg tablet pregabalin 150 mg capsule (Lyrica) 150 mg PO DAILY #30 caps 05/13/25 nabumetone 750 mg tablet 750 mg PO BID PRN pain #14 tabs 05/24/25 Allergies Allergy/AdvReac Type Severity Reaction Status Date / Time No Known Drug Allergies Allergy Verified 05/24/25 09:25 Opioid HPI Opioid Management Most Recent Opioid Data: Last Pain Scale 8 Today, 10:02 Last Pain Intensity 0 09/12/23, 11:19 Last MAR Pain Assessment Today, 10:02 Last ORT Total Score 0 12/04/24, 21:57 Last ORT Risk Category Low Risk 12/04/24, 21:57 PFSH PFS Medical History COPD exacerbation ?J44.1 - Chronic obstructive pulmonary disease with (acute) exacerbation (ICD-10) Influenza A ?J10.1 - Influenza due to other identified influenza virus with other respiratory manifestations (ICD-10) Hypoxia ?R09.02 - Hypoxemia (ICD-10) Hypertension ?I10 - Essential (primary) hypertension (ICD-10) Obesity ?E66.9 - Obesity, unspecified (ICD-10) Amputation toe ?S98.139A - Complete traumatic amputation of one unspecified lesser toe, initial encounter (ICD-10) Neuropathy ?G62.9 - Polyneuropathy, unspecified (ICD-10) Acid reflux ?K21.9 - Gastro-esophageal reflux disease without esophagitis (ICD-10) Diabetes ?E11.9 - Type 2 diabetes mellitus without complications (ICD-10) COPD (chronic obstructive pulmonary disease) ?J44.9 - Chronic obstructive pulmonary disease, unspecified (ICD-10) Asthma ?J45.909 - Unspecified asthma, uncomplicated (ICD-10) High cholesterol ?E78.00 - Pure hypercholesterolemia, unspecified (ICD-10) Surgical History History of hammertoe correction ?Z98.890 - Other specified postprocedural states (ICD-10) ?Z87.39 - Personal history of other diseases of the musculoskeletal system and connective tissue (ICD-10) Hx of cholecystectomy ?Z90.49 - Acquired absence of other specified parts of digestive tract (ICD-10) History of hysterectomy ?Z90.710 - Acquired absence of both cervix and uterus (ICD-10) Social History (Updated 12/04/24 @ 22:27 by Comfort Grimaldo RN) Within the past year, how often did you have a drink containing alcohol: never Within the past year, how often did you have six or more drinks on one occasion: never Score interpretation: A score less than 3 is consistent with normal alcohol consumption. Smoking status: Current some day smoker Second hand tobacco smoke exposure: Yes Non-prescribed substance use: denies use Known occupational exposures/hazards: No Highest level of school completed/degree received: Associate degree: occupational, technical, vocational program Are you now , , , , never or living with a partner: Little interest or pleasure in doing things: not at all Feeling down, depressed, or hopeless: not at all Feel stressed/tense/nervous/anxious/difficulty sleeping: not at all Exam Narrative Exam Narrative: Nurses notes and vital signs reviewed and patient is not hypoxic. afebrile General: Well-appearing and in no apparent distress. Skin: Warm, dry, no pallor noted. No rash to right chest, axilla or right mid/upper back. Eye: Pupils are equal, round and EOMI. No scleral icterus. Ears, Nose, Mouth, and Throat: Oral mucosa is moist Cardiovascular: Regular Rate and Rhythm without murmur, gallop or rub. Respiratory: No accessory muscle use or respiratory distress. Lungs are clear to auscultation, no wheezing, rales or rhonchi Chest Wall: diffuse right breast/upper chest tenderness without crepitus or subcutaneous emphysema. Back: Soft tissue tenderness noted to the right upper back at the mid thoracic level without any associated scapular tenderness. No ecchymosis, swelling, erythema noted. No midline thoracic or lumbar vertebral tenderness. No CVA tenderness Musculoskeletal: normal ROM, no calf or popliteal tenderness, no lower extremity edema/swelling GI: Abdomen is soft, non-distended. Normal bowel sounds. No tenderness to palpation. No rebound, guarding, or rigidity noted. Neurological: A&O x4. No cranial nerve dysfunction observed. No truncal ataxia. Moves all extremities. Sensation intact. Psychiatric: Cooperative and interactive. Normal mood and affect. Constitutional Vital Signs, click to edit/add: Last Vital Signs Temp 97.8 F 05/24/25 09:25 Pulse 78 05/24/25 09:25 Resp 20 05/24/25 09:25 BP 170/70 H 05/24/25 09:25 Pulse Ox 94 L 05/24/25 09:25 O2 Del Method Room Air 05/24/25 09:25 Course Vital Signs Vital signs: Vital Signs Temperature 97.8 F 05/24/25 09:25 Pulse Rate 78 05/24/25 09:25 Respiratory Rate 20 05/24/25 09:25 Blood Pressure 170/70 H 05/24/25 09:25 Pulse Oximetry 94 L 05/24/25 09:25 Oxygen Delivery Method Room Air 05/24/25 09:25 Temperature 97.8 F 05/24/25 09:25 Pulse Rate 78 05/24/25 09:25 Respiratory Rate 20 05/24/25 09:25 Blood Pressure 170/70 H 05/24/25 09:25 Pulse Oximetry 94 L 05/24/25 09:25 Oxygen Delivery Method Room Air 05/24/25 09:25 Medical Decision Making MDM Narrative Medical decision making narrative: The patient presents with pain that started in the mid to upper right back and then migrated to now include the upper right chest. Peripheral IV was ordered to be established and blood drawn and sent for testing. CT angio scan of the chest was ordered to be obtained with IV contrast. Patient was placed on campus monitor and EKG obtained. WBC, Hb and HCT are elevated, suggesting hemoconcentration - she was ordered to receive 1L NS IVF bolus. Remainder of blood testing was unremarkable - including negative troponin and BNP. CTA chest = per radiologist, no acute pulmonary embolus. Lungs are clear. No hilar mass or adenopathy is seen. No pneumoperitoneum. She was informed of results and given reassurance. She was discharged home with prescription for Relafen to help with her pain. . Lab Data Lab results reviewed: Yes I reviewed the patient's lab results Labs: Lab Results 05/24/25 Range/Units 09:52 WBC 11.9 H (4.0-11.0) 10^3/uL RBC 6.79 H (4.20-5.40) 10^6/uL Hgb 18.7 H (12.0-16.0) g/dL Hct 58.3 H (36.0-48.0) % MCV 85.9 (81.0-99.0) fL MCH 27.5 (26.7-34.0) pg MCHC 32.1 (29.9-35.2) g/dL RDW 20.6 H (11.0-15.0) % Plt Count 115 L (150-450) 10^3/uL Neut % (Auto) 68.7 (43.0-75.0) % Lymph % (Auto) 22.9 (20.5-60.0) % [place] % (Auto) 5.0 (1.7-12.0) % Eos % (Auto) 2.4 (0.9-7.0) % Baso % (Auto) 0.7 (0.2-2.0) % Neut # (Auto) 8.2 H (1.4-6.5) 10^3/uL Lymph # (Auto) 2.7 (1.2-3.8) 10^3/uL [place] # (Auto) 0.6 (0.3-0.8) 10^3/uL Eos # (Auto) 0.3 (0.0-0.7) 10^3/uL Baso # (Auto) 0.1 (0.0-0.1) 10^3/uL Abs Immat Gran (auto) 0.04 H (0.00-0.03) 10^3/uL Imm/Tot Granulo (auto) 0.3 (0.0-0.5) % Sodium 145 (136-145) mmol/L Potassium 4.0 (3.5-5.1) mmol/L Chloride 104 (98-107) mmol/L Carbon Dioxide 35.0 H (21.0-32.0) mmol/L Anion Gap 10.0 BUN 15.0 (7.0-18.0) mg/dL Creatinine 0.97 (0.55-1.02) mg/dL Est GFR ( Amer) >60 (>=60 mL/min/1.73m^2) Est GFR (Non-Af Amer) 60 (>=60 mL/min/1.73m^2) BUN/Creatinine Ratio 15.5 Glucose 198 H (74-106) mg/dL Calcium 9.3 (8.5-10.1) mg/dL Total Bilirubin 0.7 (0.2-1.0) mg/dL AST 12 L (15-37) U/L ALT 17 (14-59) U/L Alkaline Phosphatase 75 (46-116) U/L Troponin I High Sens 11.3 (4.0-51.3) pg/mL NT-Pro-B Natriuret Pep 198.0 (<=900.0) pg/mL Total Protein 8.0 (6.4-8.2) g/dL Albumin 3.2 L (3.4-5.0) g/dL Globulin 4.8 g/dL Albumin/Globulin Ratio 0.[address] chest: Attestation: I have reviewed the pertinent imaging results. Radiologist's impression: ITS Impressions Chest CTA 05/24/25 09:39 IMPRESSION: No acute pulmonary embolus. Impression dictated by: Price Kevin M.D. 05/24/2025 10:51 AM Dictation [facility] Electronically authenticated by: [id number] Y Date: 05/24/2025 10:51 ECG Data Attestation: I personally reviewed and interpreted this ECG as follows: Interpretation: EKG interpretation:Emergency Department physician interpretation.Normal sinus rhythm at 74bpm.left axis deviation. Normal remaining intervals and no ST segment elevation or depression. Discharge Plan Discharge Chief Complaint: Back Pain/Injury Clinical Impression: Acute right-sided thoracic back pain, Right-sided chest pain Patient Disposition: Home, Self-Care Time of Disposition Decision: 11:03 Prescriptions / Home Meds: New nabumetone 750 mg tablet 750 mg PO BID PRN (Reason: pain) Qty: 14 0RF No Action diclofenac sodium 75 mg tablet,delayed release (DR/EC) 75 mg PO BID PRN (Reason: pain) Qty: 60 2RF hydrocodone-acetaminophen 5-325 mg tablet See Rx Instructions .ROUTE .COMPLEX PRN (Reason: pain) Qty: 80 0RF Rx Instructions: 1 TABLET PO BID-TID PRN #80 MUST LAST 30 DAYS pregabalin [Lyrica] 300 mg capsule 300 mg PO BID Qty: 60 0RF pregabalin [Lyrica] 150 mg capsule 150 mg PO DAILY Qty: 30 0RF baclofen 10 mg tablet 10 mg PO TID PRN (Reason: muscle spasm) Qty: 90 2RF pregabalin [Lyrica] 150 mg capsule 150 mg PO DAILY Qty: 30 0RF hydrocodone-acetaminophen 5-325 mg tablet 1 tab PO TID PRN (Reason: pain) Qty: 80 0RF acetaminophen 500 mg capsule 1,000 mg PO Q6H PRN (Reason: fever or pain) aspirin [Adult Aspirin Regimen] 81 mg tablet,delayed release (DR/EC) 81 mg PO DAILY amitriptyline 25 mg tablet 25 mg PO DAILY insulin glargine [Lantus U-100 Insulin] 100 unit/mL solution 58 unit subcut BID furosemide 40 mg tablet 40 mg PO DAILY lisinopril 20 mg tablet 20 mg PO DAILY insulin aspart U-100 [Novolog FlexPen U-100 Insulin] 100 unit/mL (3 mL) insulin pen 1 sliding scale dose subcut USEASDIRECTD omeprazole 20 mg capsule,delayed release(DR/EC) 20 mg PO DAILY duloxetine 60 mg capsule,delayed release(DR/EC) 60 mg PO BID Qty: 60 0RF dapagliflozin propanediol 10 mg tablet 10 mg PO .QD ergocalciferol (vitamin D2) 1,250 mcg (50,000 unit) capsule 50,000 unit PO QWEEK potassium chloride 10 mEq capsule, extended release 10 meq PO .QD simvastatin 10 mg tablet 10 mg PO QAM hydralazine 25 mg Tablet 25 mg PO BID Qty: 60 11RF ammonium lactate 12 % lotion 1 applic TOPICAL DAILY Rx Instructions: apply to bilateral feet cephalexin 500 mg capsule 500 mg PO BID Print Language: Lithuanian Instructions: Chest Pain (ED), Thoracic Pain (ED) Referrals: Mckayla Blas FINE UNHAIRER [Primary Care Provider, Family Practice] - 1 week
--- OUTSIDE RECORDS SUMMARY | 2025-05-24 09:51 | XMS_ITS | Clinical Summary ---
Author Organization [employer] tem Address [id number] [place] [address] Care Team Providers Care Fiscal Technician Name Role Phone Wan Mckayla Rice APRN-CONTROL OPERATOR [employer] Primary Care Provider Allergies No known active [...] mg/0.5 mL pen injector inject one pen zvqdws7504/12/2020Active DULoxetine (CYMBALTA) 60 mg capsule Take 1 [...] get venous reflux ultrasound. Other chronic pain1ANA gfpvcusm04/11/2021Preop cardiovascular exam 05/28/20207532Ptlnhdv17/20/2020 Assessment & Plan (06/19/2024 2:16 PM EST): Counseled on smoking cessation for at least 3 minutes. She is willing to quit. Morbid htjaquu1905/28/2020BMI 50.0-59.9, adult05/21/2020 Family History Medical HistoryRelationNameCommentsCancerPaternal GrandfatherCancerPaternal GrandmotherHeart diseasePaternal GrandmotherStrokePaternal GrandmotherRelation NameStatusCommentsFatherDeceasedMotherDeceasedPaternal GrandfatherPaternal Grandmother Social History Tobacco UseTypesPacks/DayYears UsedDateSmoking Tobacco: Every DayCigarettes Smokeless Tobacco: NeverAlcohol UseStandard Drinks/WeekCommentsYes0 (1 standard drink = 0.6 oz pure alcohol)RAREChildcareAnswerDate RecordedChildcareUnknown 12/12/2018EmploymentAnswerDate AvcsudxoKgxnwrromgTfuwjdw28/06/2019Purpose - Life AnswerDate RecordedPurpose and direction in wdfwCocfzql96/06/2021 CommentsUnknownSex and Gender InformationValueDate RecordedSex Assigned at Not on fileLegal NhqFxzzir94/06/2015 11:50 AM EDTGender IdentityNot on file Sexual OrientationNot on file Last Filed Vital Signs Vital SignReadingTime TakenCommentsBlood Prwzqmtv941/7006/19/2024 11:26 AM EST Oiebp312306/19/2024 11:26 AM VBVNtfrrhzbmlb08.7 ??C (98 ??F)06/19/2024 11:26 AM ESTRespiratory Gbtd836208/20/2023 11:26 AM ESTOxygen Xjhdjlhuvz36%06/11/2020 9:27 AM ESTInhaled Oxygen Concentration--Rqobmw270.6 kg (374 lb)06/19/2024 11:26 AM KHTYigvft361 cm (5' 6.93 )06/19/2024 11:26 AM ESTBody Mass Index58.7108/20/2023 11:26 AM EST Plan of Treatment Health MaintenanceDue DateLast DoneCommentsStatin Use: Zcsoknupdorhuv01/17/1971 Depression Ccysswklg27/17/1983Tobacco Cxpgmtirh32/17/1983Adult BMI Follow Up Plan1988DTaP,Tdap and Td Vaccines (1 - Tdap)1989Pap Smear1991 Zoster (Shingles) Vaccine (1 of 2)1COVID-19 Vaccine (4 - 2024-26 season)5007/19/2021, 10/28/2020, 10/08/2020Influenza Kerlexz6203/09/2025 05/18/2023, 04/16/2017, 05/10/2016, Additional history existsAdult BMI Screening Medical Devices Not on file Insurance Care Teams Team MemberRelationshipSpecialtyStart DateEnd Date Mckayla Blas, ENVIRONMENTAL SERVICES WORKER-CONTROL OPERATOR [employer] [address] [place] [address] PCP - GeneralNurse Practitioner09/25/18
--- OUTSIDE RECORDS SUMMARY | 2025-05-24 09:52 | XMS_ITS | Clinical Summary ---
Author Organization [facility] Address [address] [place] [address] Care Team Providers Care Research Electrician Name Role Phone Ty Amin MD Primary Care Provider [phone] Mckayla Blas NP Unavailable [phone] Allergies No known active allergies Medications [...] (six) hours if needed for wheezingActive HYDROcodone-acetaminophen ([place]) 5-325 MG tablet 1 tablet as needed [...] Administer 4 mg into affected nostril(s) if bboeux964Active nicotine (Nicoderm, Step 1) 21 MG/24HR patch [...] DAYS 5Active ergocalciferol (Vitamin D2) 1.25 MG (58562 UT) capsule Indications:Vitamin D deficiency, unspecifiedTake 1 [...] long-term current use of insulin ([facility])Chew 1 tablet (81 mg) Daily 90 tablet [...] long-term current use of insulin ([facility])Inject 58 Units under the skin in the morning and 58 Units before bedtime. 104.4 mL 107501/6Active insulin glargine (Lantus SoloStar) 100 UNIT/ML pen Indications:Type 2 diabetes mellitus with hyperglycemia, with long-term current use of insulin ([facility])INJECT 58 UNITS SUBCUTANEOUSLY TWICE A DAY 105 mL 5Active Tirzepatide (Mounjaro) 15 MG/0.5ML solution auto-injector Indications:Type 2 diabetes mellitus with other circulatory complications ([facility]) Inject 15 mg under the skin 1 (one) time per week 6 mL 5Active varenicline (Chantix) 1 MG tablet Indications:Tobacco user,Encounter for smoking cessation counselingTAKE 1 TABLET BY MOUTH IN THE MORNING AND 1 TABLET BEFORE BEDTIME. TAKE WITH FULL GLASS OF WATER. 60 tablet 5Active Active Problems ProblemNoted DateDiagnosed DateStasis dermatitis with ulcer of right lower extremity due to peripheral venous jdtmqaexvvvg73/03/9598Xhbim08/03/2025 Assessment & Plan (12/09/2024 7:26 AM EDT): Tylenol prn fever Finish atb's Cellulitis of left lower /03/2025 Assessment & Plan (12/09/2024 11:27 AM EDT): Finish atbs Keep appt with wound care A febrile Will call me if worsening in sxs Cigarette nicotine dependence without rvbozrzgkyet01/21/2025 Assessment & Plan (10/27/2024 2:40 PM EDT): Is currently using chantix, and is doing well, less desire, smoking less Vitamin D deficiency, wvrweftejgh68/21/2025Gastro-esophageal reflux disease without /21/2025 Assessment & Plan (01/26/2025 7:51 AM EDT): Recommendations: freq small meals, nothing to eat or drink at least 2 hours prior to bed, limit caffeine, alcohol, as well as spicy foods Meds to limit or avoid if possible: NSAIDS Elevate HOB if possible Current meds: ompeprazole Morbid (severe) obesity due to excess rpcylqxu09/19/2025 Assessment & Plan (01/26/2025 6:46 PM EDT): [...] wrapped, 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 as possible 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 lieojep8008/27/2024Non-pressure chronic ulcer of other part of left lower leg limited to breakdown of skin08/27/2024Vitamin /19/2025ntibiotic-induced yeast bbyudpowm73/19/2025hronic diastolic heart runscjn5008/08/2024 Assessment & Plan (01/26/2025 7:52 AM EDT): [...] counseling 07/14/2024ritical limb ischemia of right lower sebynxeaa67/12/2024 Assessment & Plan (07/14/2024 7:32 PM EST): Saw vascular, does have narrowing in arteries in legs, and thus the wounds not healing At this point they strongly urge to quit smoking or risk limb amputation Cont asa and statin Also good blood pressure and sugar control 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 2 diabetes vwwnqsim53/05/2024 Overview (05/13/2024): Eye exam 05/13/24 Hyperpigmentation of [...] wellness on a yearly basis Other headache exzjpslp75/11/2024 Assessment & Plan (01/17/2024 12:40 PM EDT): No hx of Migraines, however tylenol/motrin do not help and pt has gotten some relief from Excedrin migraine med Reports some sinus/uri last week. Does have left OM, will treat for this and if not better can try ubrelvy #3 samples given: Lot [id number], exp 03/2025 Mixed sjuywggnkujp69/08/4157Clmpcejmx70/08/2024Encounter for screening mammogram for malignant neoplasm of lpfjvh2711/01/2023Non-seasonal allergic rhinitis 11/01/2023andidiasis of isgdru9111/01/2023 Assessment & Plan (11/01/2023 11:21 AM EDT): Skin care, Sprsgegs39/11/2024 Assessment & Plan (01/26/2025 6:44 PM EDT): elavil Radiculopathy, lumbar hrddgd3509/17/2023 Assessment & Plan (07/14/2024 7:36 PM EST): [...] is necessary they take over prescribing Pancreatitis ([facility])09/17/2023OPD vloukdjnuhff66/11/2024 Assessment & Plan (12/09/2024 11:26 AM EDT): [...] non labored and no cyanosis noted Venous hufrquirszags79/11/2024 Assessment & Plan (11/01/2023 11:17 AM EDT): Open wounds refer to [facility] Wound Care Pulmonary dhblrhqubxfu01/11/2024 Assessment & Plan (01/26/2025 7:52 AM EDT): Has seen [facility] Cardiology Assessment & Plan (12/09/2024 7:23 AM EDT): Has seen [facility] Cardiology Assessment & Plan (11/15/2023 3:49 PM EDT): Saw [facility] Cardiology See notes Going to see Pulmonary Assessment & Plan (09/27/2023 1:03 PM EDT): Needs to wear her PAP I am also going to have her see [facility] Cardiology as well PAD (peripheral artery disease)09/17/2023 Assessment & Plan (10/27/2024 2:38 PM EDT): Asa, statin Quit smoking BP and DM control Assessment & Plan (07/14/2024 7:32 PM EST): Asa, statin Quit smoking BP and DM control Malignant neoplasm of cervix uteri, gqupwtacjya70/11/2024 Assessment & Plan (08/27/2024 7:33 AM EST): Had in the past, had hysterectomy Vswtnkgcmnp87/11/2024Unilateral primary osteoarthritis, right hip09/17/2023 Chronic pain of both knees09/17/20234517Elblamrcqopveg79/11/2024 Assessment & Plan (01/26/2025 7:49 AM EDT): On statin therapy Check labs yearly and prn dose changes Assessment & Plan (08/27/2024 7:36 AM EST): On statin therapy Check labs yearly and prn dose changes Decreased functional dasggndv52/11/2024drenal mass 1 cm to 4 cm in diameter 09/17/2023 Assessment & Plan (07/14/2024 7:33 PM EST): Continue with Urology Kidney stone09/17/2023 Assessment & Plan (07/14/2024 7:32 PM EST): Continue with Urology Iemjyuaoczf69/11/2024Vaginal yeast fjewkhuhn81/09/2024 Assessment & Plan (01/26/2025 6:46 PM EDT): [...] reach out to DME for help Diabetic qglupivxvv53/02/2024 Assessment & Plan (01/26/2025 7:53 AM EDT): [...] spiriva Will trial breztri: #2 samples given [id number], exp 03/03, rinse mouth after use Give [...] no changes in inhalers Recommend quitting smoking Cisana6807/10/2023 Assessment & Plan (01/26/2025 6:44 PM EDT): Current meds: albuterol, duoneb, Has director of consumer marketing 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 Assessment & Plan (08/27/2024 7:30 AM EST): Current meds: albuterol, duoneb, Has director of consumer marketing 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 Assessment & Plan (01/17/2024 12:36 PM EDT): Cont w inhalers, pulmonology Quit smoking Pgxdmsiqlehl70/02/2024 Assessment & Plan (01/26/2025 7:52 AM EDT): [...] from hospital, lost script I did contact [facility] in [place], they will get another fill on this and have ready for patient Fu in 4 weeks Assessment & Plan (07/10/2023 11:59 AM EST): Stable on current dose of meds Type 2 diabetes mellitus with complication, with long-term current use of pjfepjb7407/10/2023 Assessment & Plan (01/26/2025 7:50 AM EDT): [...] odonnell for management of diabetes Anxiety and yaysvyrzck81/02/2024 Assessment & Plan (01/26/2025 6:46 PM EDT): [...] discussed skin care regimines as well RAGHU ebmluths92/11/1167Nkmrifjpwfcf45/19/2018 Overview (09/17/2023): borderline Gout10/25/2017 Resolved Problems ProblemNoted [...] left ear without spontaneous rupture of tympanic jmaefkwo43lass 3 severe obesity with serious comorbidity and body mass index (BMI) of 50.0 to 59.9 in adult09/27/2023 04/14/20242415Uwwbrhxmp95/11/202404/GERD (gastroesophageal reflux disease) Assessment & Plan (10/27/2024 [...] of the risks of continued smoking: stroke, [place], all forms of cancer, lung disease, and [...] of the risks of continued smoking: stroke, [place], all forms of cancer, lung disease, and [...] index (BMI) of 60.0 to 69.9 in adult01/bdominal yywafb09/ Encounters DateTypeDepartmentCare WhxjSrxwolrxljd46/01/2025Refill [facility] [address] [place] [address] Mckayla Blas NP Tobacco user; Encounter for smoking cessation jwtaixhivd86/22/2025Refill [facility] [address] [place] [address] Amber Pinzon LPN Type 2 diabetes mellitus with other circulatory complications (HCC)02/26/2025 Refill [facility] [address] [place] [address] Rain Odonnell MD Type 2 diabetes mellitus with other circulatory complications (HCC)from Last 3 Months Immunizations ImmunizationAdministration DatesNext DueInfluenza Whole05/02/2013Influenza, B9L5-563280/09/2017,05/10/2016Influenza, Bkpmtleuqvg78/10/2023,04/16/2017, 05/10/2016Influenza, injectable, gttktjsyieie55/10/2023,05/02/2013MMR01/29/1998 Pneumococcal Polysaccharide NVIK8619 Family History Medical HistoryRelationNameCommentsNo Known ProblemsFatherVaricose veinsFather's [...] other written material from your doctor or pharmacy?Mdjfex8708/26/2024Humiliation, Afraid, Rape, and Kick questionnaireAnswerDate RecordedWithin the [...] relatives?Once a week08/26/2024How often do you attend jainism or zoroastrianism services?More than 4 times per year 08/26/2024Do you belong to any clubs or organizations such as jainism groups, unions, fraternal or athletic groups, or school groups?No08/26/2024How often do you attend meetings of the clubs or organizations you belong to?Never08/26/2024 Are you , , , , never , or living with a partner?Lhkwhfj6608/26/2024UDIT-CAnswerDate RecordedQ1: How often do you have a [...] hard at all08/26/2024PHQ-2AnswerDate RecordedPatient Health Questionnaire-2 Score0 01/26/2025[facility] - Occupational Stress QuestionnaireAnswerDate RecordedDo you feel stress - tense, restless, nervous, or anxious, or unable to sleep at night because yourmind is troubled all the time - these days?Only a sjurah4608/26/2024Exercise Vital SignAnswerDate Recorded On average, how many [...] steady place to sleep or slept in albertaelter (including now)?No07/10/2023Housing Stability Vital SignAnswerDate RecordedIn the last 12 months, was there a time when you were not able to pay the mortgage or rent on time?No08/26/2024Number of Times Moved in the Last YearNot on file08/26/2024t any time in the past 12 months, were you homeless or living in a longterm (including now)?No08/26/2024 CommentsUnknownSex and Gender InformationValueDate RecordedSex Assigned at BirthNot on fileLegal MocBzfjmr22/15/2023 6:50 PM EDTGender IdentityNot on fileSexual OrientationNot on file Last Filed Vital Signs Vital SignReadingTime TakenCommentsBlood Nutgqmot459/7007 9:48 AM EDT Nidgv6014/24/2025 9:48 AM DYJJclufvtzjrq19.9 ??C (98.5 ??F)01/26/2025 6:11 PM EDTRespiratory Dxgi261901/29/2025 9:48 AM EDTOxygen Mqezsvjdvx19%01/29/2025 9:48 AM EDTInhaled Oxygen Concentration--Apgwsl010 kg (360 lb)01/29/2025 9:48 AM EDT Ntbmdp200.2 cm (5' 7 )01/29/2025 9:48 AM EDTBody Mass Index56.38001/29/2025 9:48 AM EDT Plan of Treatment DateTypeDepartmentCare Team (Latest Contact Info)Dediemqhrzw98/20/2025 10:30 AM ESTOffice Visit [facility] [address] [place] [address] Rain Odonnell MD [address] [place] [address] Health MaintenanceDue DateLast DoneCommentsCT Mbblveitrjhc43/17/1971Colonoscopy 1970FIT1970FOBT1970 2468Tipcgpxezbgre98/17/1971HPV/Yhmygp6708/25/2000 Pap Smear/07/2015, 10/08/20158320Vlpgykgln66/07/202506/01/2024, 12/14/2023, 11/22/2022OVID-19 Vaccine ( season)501/05/2022, 10/28/2020, 10/08/2020Influenza Vaccine (#1)/04/2023, 05/18/2023, 04/16/2017, Additional history existsColorectal Cancer Lwzdkqppc75/26/2026 FIT-DNA603Pneumococcal Vaccine: Pediatrics (0 to 5 Years) [...] 11:22 AM EDT [facility] ?[address] ? [place] [address] ? Mammography Report ? Signed ? Patient: SINA MACIAS L ?MR#: [id number] ?? : 1970 ?Acct:[id number] ?? Age/Sex: 53 / F ?ADM Date: 12/13/23 ?? Loc: MAMMO ? Attending Dr: Mckayla J Wan SENIOR IOS DEVELOPER ? Ordering Physician: Mckayla Blas SENIOR IOS DEVELOPER ?Results: ? Date of Service: 12/13/23 ?Follow Up: ? Procedure(s): MM tomosynthesis screening BI ?? Accession Number(s): [id number] ? cc: Mckayla Blas SENIOR IOS DEVELOPER ? Patient Name: ? SINA MACIAS ? MR#: [id number] ? : 1970 ? Exam Date: 12/13/2023 [...] ? LOCATION: ? [facility] ? BREAST COMPOSITION: ? The breasts [...] 1122 ? DD/ 1121 ? TD/TT: ? Shoe Treer: Procedure Note Radiology, Radiologist, MD - 12/14/2023 [facility] [place] [id number] Mammography Report Signed Patient: SINA MACIAS LMR#: [id number] : 1970Acct:[id number] Age/Sex: 53 / FADM Date: 12/13/23 Loc: MAMMO Attending Dr: Mckayla Blas SENIOR IOS DEVELOPER Ordering Physician: Mckayla Blas NPResults: Date of Service: 12/13/23Follow Up: Procedure(s): MM tomosynthesis screening BI Accession Number(s): [id number] cc: Mckayla Blas NP Patient Name: SINA MACIAS MR#: [id number] : 1970 Exam Date: 12/13/2023 Ordering Doctor: SAYDA Blas DUST COLLECTOR ATTENDANT RADIOLOGY REPORT PROCEDURE: MM TOMOSYNTHESIS SCREENING [...] M.D. Signed By:12/14/23 1122 DD/ 1121 TD/TT: Shoe Treer: Authorizing ProviderResult TypeResult StatusLisa Wan NPCLINISYNC IMAGING Final Result from Last 3 Months or Most Recently Relevant to Health Maintenance Insurance Care Teams Team MemberRelationshipSpecialtyStart DateEnd Date Ty Amin MD [address] [place] [phone] PCP - GeneralFamily Medicine09/20/23 Mckayla Blas NP [address] [place] [address] Nurse PractitionerFamily Medicine09/20/23
--- OUTSIDE RECORDS SUMMARY | 2025-05-24 09:52 | XMS_ITS | Clinical Summary ---
Author Organization [facility] Address [address] [place] [address] Care Team Providers Care Microsoft Crm Developer Name Role Phone Mckayla Blas MD Primary Care Provider [phone] Allergies No known active allergies Medications MedicationSigDispense [...] INJECT 48 UNITS SUBCUTANEOUSLY TWICE DAILY02/06/2022ctive HYDROcodone-acetaminophen ([place]) 5-325 mg tablet TAKE 1 TABLET BY MOUTH THREE TIMES A DAY NEEDED FOR PAIN MUST LAST 30 DAYS 11/09/2023ctive DULoxetine (Cymbalta) [address] capsule Take 1 tablet by mouth in the morning.Active ergocalciferol (Vitamin D-2) 1.25 MG (42549 Units) capsule Take 1.25 mg by mouth.Active [...] Problems ProblemNoted DateDiagnosed DateCellulitis of left lower wubnssjxo12/03/2025Fever 12/09/2024igarette nicotine dependence without hzxymoybnlpx41/21/2025Vitamin D deficiency, mhukuomndty93/21/2025ntibiotic-induced yeast aniygsbhd63/19/2025 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 08/27/2024Long term current use of inhaled qqmvvfy4408/27/2024Vitamin deficiency 08/27/2024ad odor of urine08/08/2024hronic diastolic heart smcowdd0608/08/2024 Myelolipoma of adrenal gland07/14/2024ritical limb ischemia of right lower xrxipdycz25/12/2024Venous ulcer of right leg06/19/2024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 2 diabetes caxtvsdm64/05/2024 Overview (08/08/2024): Eye exam 05/13/24 Hyperpigmentation of skin04/14/20248954Jxaaioyxy46Headache Left flank painMixed incontinence urrent Overview (11/14/2023): Added secondary to documentation in Social History. Candidiasis of mkrwpa53 Overview (11/14/2023): Last Assessment & Plan: Skin care, Non-seasonal allergic dhbuforv40Encounter for screening mammogram for malignant neoplasm of japbqo86lass 3 severe obesity with serious comorbidity and body mass index (BMI) of 50.0 to 59.9 in adultdrenal mass 1 cm to 4 cm in uabkysbl71/11/2024 11/14/20235433Xaepcalewot31ervical tcbkri09 Chronic pain of both kneesecreased functional mobility GERD (gastroesophageal reflux disease) Ftczblpxftucxd16InsomniaKidney stone AD (peripheral artery disease)neumonia adiculopathy, lumbar ursjvw05Unilateral primary osteoarthritis, right hipVenous insufficiency Overview (11/14/2023): Last Assessment & Plan: Open wounds refer to [facility] Wound Care Vaginal yeast qfmbgbdrn42nxiety and uebyqszidg00/02/2024 11/14/2023ilateral lower extremity edema Overview (11/14/2023): Last Assessment & Plan: Continue w pamela, discussed skin care regimines as well Diabetic fwukmydyqa43Hypertension Overview (11/14/2023): Last Assessment & Plan: No changes today in meds Obstructive sleep apnea Overview (11/14/2023): Last Assessment & Plan: DME needs to send her a new mask for her machine, I have emphasized the importance of getting in touch with them so she can do this Type 2 diabetes mellitus with complication, with long-term current use of Overview (11/14/2023): Last Assessment & Plan: Continue with [facility] for management RAGHU hfpbeayn98Other chronic painMI 50.0- 59.9, adult05/21/Easy tnsmpjlu71losed fracture of upper end of vftczad86/27/bdominal kfkxpy26 Omvjiy27ardiomegaly Overview (11/14/2023): borderline borderline Acute respiratory distress fvbiiakx51Gout Resolved Problems ProblemNoted DateDiagnosed DateResolved DatePulmonary /11/2024 Overview (11/14/2023): Last Assessment & Plan: Needs to wear her PAP I am also going to have her see [facility] Cardiology as well Family History Medical HistoryRelationNameCommentsHeart attackPaternal GrandmotherRelationName StatusCommentsFatherDeceasedMotherDeceasedPaternal Grandmother Social History Tobacco UseTypesPacks/DayYears UsedDateSmoking Tobacco: Every DayCigarettes Smokeless Tobacco: Never Tobacco Cessation:Ready to Q uit: Not Asked; Counseling Given: Not Answered Alcohol UseStandard Drinks/WeekCommentsNot Currently0 (1 standard drink = 0.6 oz pure alcohol)[place] Safety & EnvironmentAnswerDate RecordedFear of Current or Ex-PartnerNot on file08/30/2023Emotionally AbusedNot on file08/30/2023hysically AbusedNot on file08/30/2023Sexually AbusedNot on file08/30/2023hysically or Sexually AbusedNot on file08/30/2023CommentsUnknownSex and Gender InformationValueDate RecordedSex Assigned at BirthNot on fileLegal SexFemale 01/04/2022 10:08 PM EDTGender IdentityNot on fileSexual OrientationNot on file Last Filed Vital Signs Vital SignReadingTime TakenCommentsBlood Kiionlgx864/6407 11:41 AM EDT Ikqxw849101/06/2025 11:41 AM QOVRhgyozlkgqe88.7 ??C (98.1 ??F)12/12/2018 2:44 PM EDTRespiratory Rate--Oxygen Sihvddamsg50%01/06/2025 11:41 AM EDTInhaled Oxygen Concentration--Somrxx121 kg (376 lb)01/06/2025 11:41 AM ORTYzvsic965.2 cm (5' 7 )01/06/2025 11:41 AM EDTBody Mass Index58.8907 11:41 AM EDT Plan of Treatment Health MaintenanceDue DateLast DoneCommentsCT Blhbzfzrmlhp89/17/1971Colonoscopy 1970Colorectal Cancer Etjfpyyjx59/17/1971Diabetes: Hemoglobin A1C 1970FIT-DNA1970FIT1970FOBT1970Medicare Annual Wellness (AWV)1970 8586Hjaufcrwrmhaq06/17/1971Diabetes: Retinopathy Szxpljhws44/17/1981 Depression Pliplebti41/17/1983Diabetes: Urine Protein Cydzurnhu83/17/1990 Hepatitis B Vaccines (1 of 3 - 19+ 3-dose series)1989Pap Smear1991 Adult Bukvvou7808/25/1992Cervical Cancer Qzeptccqn05/17/2001HPV/Byvtcg4108/25/2000 Jrkpqczkq51/17/2011Pneumococcal Vaccine: Pediatrics (0 to 5 Years) and [...] Mckayla Blas MD [address] [place] [address] PCP - GeneralNurse Practitioner11/13/23
--- OUTSIDE RECORDS SUMMARY | 2025-05-24 09:52 | XMS_ITS | Patient Health Record ---
Author Organization [facility] in [place] Address [address] [place] [address] Care Team Providers Care Manager It Training Name Role Phone Mckayla Blas CNP Primary Care Provider Unavail able Armando Yañez Unavailable [phone] Allergies No Known Allergies Results Component Value Reference Range Notes CBC AUTO DIFF (Not yet revie wed by provider) Interpretation: Performing Lab: Notes/Report: [facility] , White Blood Count 12.8 4.0-11.0 10 3/uL Red Blood Count5.524.20-5.40 10 6/iURbxueaylgg78.112.0-16.0 g/kKPptbqllbxg83.9 36.0-48.0 %Mean Corpuscular Ymqtsk16.281.0-99.0 fLMean Corpuscular Hemoglobin 29.226.7-34.0 pgMean Corpuscular HGB Conc31.629.9-35.2 g/dLRed Cell Distribution Width14.611.0-15.0 %Platelet Ezsbf779217-700 10 3/uLMean Platelet Gnvsxs44.89.5- 13.5 fLNeutrophils Percent Auto67.043.0-75.0 %Lymphocytes Percent Auto25.120.5- 60.0 %Monocytes Percent Auto5.21.7-12.0 %Eosinophils Percent Auto1.90.9-7.0 % Basophils Percent Auto0.50.2-2.0 %Immature Granulocytes Pct Auto0.30.0-0.5 % Neutrophils Absolute Auto8.61.4-6.5 10 3/uLLymphocytes Absolute Auto3.21.2-3.8 10 3/uLMonocytes Absolute Auto0.70.3-0.8 10 3/uLEosinophils Absolute Auto0.20.0- 0.7 10 3/uLBasophils Absolute Auto0.10.0-0.1 10 3/uLImmature Granulocytes Abs Auto0.040.00-0.03 10 3/uLPerforming Lab:see noteML - [facility] PROF CHEM 8 (BAS METB) (Not yet reviewed by provider) Interpretation: Performing Lab: Notes/Report: [facility] ,Lvclfe883090-406 mmol/LPotassium4.23.5-5.1 mmol/BKgjkhqfj94857-051 mmol/LCarbon Bnvlybj20.521.0-32.0 mmol/LAnion Gap11.5Aafmyga21695-674 mg/dLBlood Urea Dieiiwdt38.07.0-18.0 mg/dLCreatinine0.820.55-1.02 mg/dLEstimated GFR ( Katty>60>=60 mL/min/1.73m 2Estimated GFR (Non- Kristen>60>=60 mL/min/1.73m 2BUN Creatinine Ratio19.5Dwmefmo3.08.5-10.1 mg/dLPerforming Lab:see noteML - [facility] Reason For Referral No [...] Duration: 90 DaysActiveVitamin D (Ergocalciferol) 1.25 MG (48237 UT)Oral; Duration: 90 DaysActiveBreztri Aerosphere 160-9-4.8 MCG/ACTInhalation; Duration: 30 DaysActiveSimvastatin 10 MG Oral; Duration: 90 DaysActiveRoflumilast 250 MCGOral; Duration: 28 DaysActive Immunizations Vaccine Route Administration Date Status Comme nts Flu, Fluzone (68083) 6-35mo, multi-dose vial (8584-2218) Unknown 05/18/2023 Administered Pneumococcal (Pneumovax 23)Fistabg6004/16/20176183InngjzhndtemBGNX-VYW-3 (COVID 19 Pfizer 30mcg/0.3mL)Cyukwjo7407/19/2021dministered Social History Tobacco Use: Social History Observation [...] due to ty pe 2 diabetes mellitus (1144005309919) Type 2 diabetes mellitus with foot ulcer (E11.621) ActiveconfirmedProblemMorbid obesity (disorder) (020732763)Morbid (severe) obesity due to excess calories (E66.01)ActiveconfirmedProblemVenous ulcer of lower extremity due to chronic peripheral venous hypertension (154191994019957) Chronic venous hypertension (idiopathic) with ulcer of left lower extremity (I87.312)ActiveconfirmedProblemChronic non-pressure ulcer of calf extending to fat level (31449044792094594)Non-pressure chronic ulcer of other part of right lower leg with fat layer exposed (L97.812)ActiveconfirmedProblemChronic ulcer of skin of lower leg (disorder) (91327413391078699)Non-pressure chronic ulcer of other part of left lower leg limited to breakdown of skin (L97.821)Active confirmedProblemNon-pressure chronic ulcer of other part of left lower leg with fat layer exposed (L97.822)ActiveconfirmedProblemLong-term current use of inhaled steroid (612743700)assisted (current) use of inhaled steroids (Z79.51) ActiveconfirmedProblemCOPD - Chronic obstructive pulmonary disease (33119929) COPD (chronic obstructive pulmonary disease) (J44.9)ActiveconfirmedProblem Gastroesophageal reflux disease (306022339)GERD (gastroesophageal reflux disease) (K21.9)ActiveconfirmedProblemHypertension (47924387)HTN (hypertension) (I10)ActiveconfirmedProblemObstructive sleep apnea syndrome (29759020)DANIEL (obstructive sleep apnea) (G47.33)ActiveconfirmedProblemLumbar radiculopathy (266097731)Lumbar radiculopathy (M54.16)ActiveconfirmedProblemDiabetes mellitus type 2 (disorder) (71956663)DM2 (diabetes mellitus, type 2) (E11.9)Active confirmedProblemMental disorder caused by drug (046158882)Cigarette nicotine dependence with nicotine-induced disorder (F17.219)ActiveconfirmedProblem Leukocytosis (858951071)Leukocytosis (D72.829)ActiveconfirmedProblemAcute exacerbation of chronic obstructive airways disease (399210932)COPD with exacerbation (J44.1)ActiveconfirmedProblemLong-term current use of insulin (842206403)Current use of insulin (Z79.4)ActiveconfirmedProblemIdiopathic chronic venous hypertension of both lower extremities with ulcer (I87.313)Active confirmedProblemNon-prs chr ulcer oth prt l low leg limited to brkdwn skin (L97.821)ActiveconfirmedProblemStasis dermatitis co-occurrent with venous ulcer of right lower extremity due to chronic peripheralvenous hypertension (345345552312311)Idiopathic chronic venous hypertension of right lower extremity with ulcer (I87.311)ActiveconfirmedProblemChronic venous hypertension with ulcer and inflammation involving left side (I87.332)ActiveconfirmedProblemAbnormal arterial blood gas (723844627)Elevated carbon dioxide level (R79.81)Active confirmedProblemSkin ulcer of right knee, limited to breakdown of skin (L97.811) ActiveconfirmedProblemDiabetes mellitus (33437301)Diabetes mellitus (E11.9) Activeconfirmed Encounters Encounter Location Date Provider Diagnosis Pulmonary Medicine [address] [address] 12/02/2024 Armando Yañez Plan Of Treatment Pending Test Test Name Order Date CBC AUTO DIFF 08/27/2024 PROF CHEM 8 (BAS METB) 08/27/2024 VC SEGMENTAL PRESSURES 04/24/2024 Insurance Providers Payer Name Payer Address Payer Phone Subscriber Number Group Number Insured Name Patient Relationship to Insured Coverage Start Date Coverage End Date [facility] [employer] [address] [place] [phone] [id number] Ottoniel Macias - patient is the insured [...]
--- OUTSIDE RECORDS SUMMARY | 2025-05-24 09:52 | XMS_ITS | CCD ---
Author Organization [facility] Care Team Providers Care Electric Wirer Name Role Phone James Benavidez Primary Care Provider JAMES BENAVIDEZ Primary Care Unavailable SHENDGE, VITHAL Admitting Unavailable SHENDGE, VITHAL Attending Unavailable AICHHOLZ, MCKAYLA Primary Care Unavailable AICHHOLZ, MCKAYLA Referring Unavailable AICHHOLZ, MCKAYLA J Primary Care Physician Tico, Stephanie Unavailable OLE RAMIREZ Attending Unavailable OLE RAMIREZ Consulting Unavailable AICHHOLZ, GENERAL EDUCATION PROFESSOR MCKAYLA Primary Care Unavailable OLE RAMIREZ Admitting Unavailable ANTONY SHRESTHA Consulting Unavailable ALONDRA ., JACQUELINE Admitting Unavailable ALONDRA ., JACQUELINE Attending Unavailable AICHHOLZ, GENERAL EDUCATION PROFESSOR MCKAYLA Primary Care Unavailable AFSANEH Loera, DR BOLANOS Consulting Unavailable MARYANNE POWER Consulting Unavailable GLENN KERR Consulting Unavailable YOMAIRA KERR Consulting Unavailable HATTIE GOFF Consulting Unavailable ALONDRA ., JACQUELINE Consulting Unavailable TICO, STEPHANIE Attending Unavailable TICO, STEPHANIE Consulting Unavailable AICHHOLZ, GENERAL EDUCATION PROFESSOR MCKAYLA Primary Care Unavailable TICO, STEPHANIE Admitting Unavailable REGLA ., DR DUMONT Admitting Unavailable AICHHOLZ, GENERAL EDUCATION PROFESSOR MCKAYLA Primary Care Unavailable REGLA ., DR DUMONT Attending Unavailable RAAUZ ., DR DUMONT Consulting Unavailable COLLIN HUERTAS Consulting Unavailable CECILIA KAUFMAN Admitting Unavailable CECILIA KAUFMAN Attending Unavailable AICHHOLZ, GENERAL EDUCATION PROFESSOR MCKAYLA Primary Care Unavailable COMFORT PRETTY Attending Unavailable COMFORT PRETTY Admitting Unavailable AICHHOLZ, GENERAL EDUCATION PROFESSOR MCKAYLA Primary Care Unavailable AICHHOLZ, GENERAL EDUCATION PROFESSOR MCKAYLA Admitting Unavailable AICHHOLZ, GENERAL EDUCATION PROFESSOR MCKAYLA Primary Care Unavailable AICHHOLZ, GENERAL EDUCATION PROFESSOR MCKAYLA Attending Unavailable AICHHOLZ, GENERAL EDUCATION PROFESSOR MCKAYLA Consulting Unavailable LAKSHMIPATHY ., NARENDRANATH Attending Anette vailable LAKSHMIPATHY ., NARENDRANATH Consulting Anette vailable LAKSHMIPATHY ., NARENDRANATH Admitting Anette vailable AICHHOLZ, GENERAL EDUCATION PROFESSOR MCKAYLA Primary Care Unavailable VALENZUELA ., GIL Consulting Unavailable MORTENSEN ., DR CHAPARRO Aguillon Attending Unavailable MORTENSEN ., DR CHAPARRO Aguillon Admitting Unavailable AICHHOLZ, GENERAL EDUCATION PROFESSOR MCKAYLA Primary Care Unavailable VALENZUELA ., GIL Consulting Unavailable MORTENSEN ., DR CHAPARRO Aguillon Admitting Unavailable AICHHOLZ, GENERAL EDUCATION PROFESSOR MCKAYLA Primary Care Unavailable MORTENSEN ., DR CHAPARRO Aguillon Attending Unavailable HALKER ., SUBHASH Consulting Unavailable LAKSHMIPATHY ., NARENDRANATH Admitting Anette vailable LAKSHMIPATHY ., NARENDRANATH Attending Anette vailable AICHHOLZ, GENERAL EDUCATION PROFESSOR MCKAYLA Primary Care Unavailable MORTENSEN ., DR CHAPARRO Aguillon Attending Unavailable MORTENSEN ., DR CHAPARRO Aguillon Admitting Unavailable VALENZUELA ., GIL Consulting Unavailable AICHHOLZ, GENERAL EDUCATION PROFESSOR MCKAYLA Primary Care Unavailable VALENZUELA ., GIL Consulting Unavailable MORTENSEN ., DR CHAPARRO Aguillon Attending Unavailable MORTENSEN ., DR CHAPARRO Aguillon Admitting Unavailable AICHHOLZ, GENERAL EDUCATION PROFESSOR MCKAYLA Primary Care Unavailable HATTIE BRODERICK Attending Unavailable HATTIE BRODERICK Admitting Unavailable AICHHOLZ, GENERAL EDUCATION PROFESSOR MCKAYLA Primary Care Unavailable AICHHOLZ, GENERAL EDUCATION PROFESSOR MCKAYLA Admitting Unavailable AICHHOLZ, GENERAL EDUCATION PROFESSOR MCKAYLA Consulting Unavailable AICHHOLZ, GENERAL EDUCATION PROFESSOR MCKAYLA Primary Care Unavailable AICHHOLZ, GENERAL EDUCATION PROFESSOR MCKAYLA Attending Unavailable AICHHOLZ, GENERAL EDUCATION PROFESSOR MCKAYLA Primary Care Unavailable MISC, DR LESLIE Admitting Unavailable MISC, DR LESLIE Attending Unavailable MISC, DR LESLIE Consulting Unavailable DIAB ., MARIANO Admitting Unavailable DIAB ., MARIANO Attending Unavailable DIAB ., MARIANO Consulting Unavailable AICHHOLZ, GENERAL EDUCATION PROFESSOR MCKAYLA Primary Care Unavailable RASTEGAR, RICCO Consulting Unavailable AICHHOLZ, GENERAL EDUCATION PROFESSOR MCKAYLA Admitting Unavailable AICHHOLZ, GENERAL EDUCATION PROFESSOR MCKAYLA Primary Care Unavailable AICHHOLZ, GENERAL EDUCATION PROFESSOR MCKAYLA Attending Unavailable AICHHOLZ, GENERAL EDUCATION PROFESSOR MCKAYLA Consulting Unavailable DR PATRICIA VELOZ Consulting Unavailable TAMLYN ., CECILIA Attending Unavailable TAMLYN ., CECILIA Admitting Unavailable DR PATRICIA VELOZ Consulting Unavailable AICHHOLZ, GENERAL EDUCATION PROFESSOR MCKAYLA Primary Care Unavailable TAMLYN ., CECILIA Consulting Unavailable MORTENSEN ., DR CHAPARRO Aguillon Attending Unavailable FESTUS ., DR CHAPARRO Aguillon Consulting Unavailable FESTUS ., DR CHAPARRO Aguillon Admitting Unavailable AICHHOLZ, GENERAL EDUCATION PROFESSOR MCKAYLA Primary Care Unavailable HATTIE BRODERICK Attending Unavailable HATTIE BRODERICK Consulting Unavailable HATTIE BRODERICK Admitting Unavailable AICHHOLZ, GENERAL EDUCATION PROFESSOR MCKAYLA Primary Care Unavailable HATTIE BAUTISTA Unavailable AICHHOLZ, GENERAL EDUCATION PROFESSOR MCKAYLA Admitting Unavailable AICHHOLZ, GENERAL EDUCATION PROFESSOR MCKAYLA Attending Unavailable AICHHOLZ, GENERAL EDUCATION PROFESSOR MCKAYLA Consulting Unavailable AICHHOLZ, GENERAL EDUCATION PROFESSOR MCKAYLA Primary Care Unavailable Ty Amin MD Primary Care Provider Ty Amin MD Primary Care Provider Aichholz CUPOLA CHARGER, Mckayla Unavailable Aichholz CUPOLA CHARGER, Mckayla Unavailable AICHHOLZ, MCKAYLA Attending Unavailable LIBBY, AHMAD F Attending Unavailable AICHHOLZ, MCKAYLA Attending Unavailable AICHHOLZ, MCKAYLA Attending Unavailable AICHHOLZ, MCKAYLA Attending Unavailable LIBBY, AHMAD F Attending Unavailable AICHHOLZ, MCKAYLA Attending Unavailable LIBBY, AHMAD F Attending Unavailable LIBBY, AHMAD F Referring Unavailable AICHHOLZ, MCKAYLA Attending Unavailable Aichholz CUPOLA CHARGER, Mckayla Unavailable Aichholz CUPOLA CHARGER-C, Mckayla J Primary Care Provider [phone] Price Arora DO Attending Provider [phone] Flynn Urias DPM Attending Provider Aichholz CUPOLA CHARGER-C, Mckayla J Attending Provider AMI ORO Attending Unavailable DAKOTAH BRIDGES Attending Unavailable Elbert ARAUZ Attending Unavailable GAVIOTA ADAMES Attending Unavailable Ty Amin MD Primary Care Provider [phone] Aichholz CUPOLA CHARGER, Mckayla Unavailable Aichholz CUPOLA CHARGER, Mckayla Unavailable Ty Amin MD Primary Care Provider Bob MANAGER OF ENGINEERING-GENERAL EDUCATION PROFESSOR, Omero Lovell Attending Unav ailable Aichholz MANAGER OF ENGINEERING-GENERAL EDUCATION PROFESSOR, Mckayla Lennon Primary Care Unava ilable Adonay DPM, Flynn Arzate Attending Unavailab le Adonay DPM, Flynn Arzate Attending Unavailab le Aichholz MANAGER OF ENGINEERING-GENERAL EDUCATION PROFESSOR, Mckayla Lennon Primary Care Unava ilable Adonay DPM, Flynn Arzate Attending Unavailab le Adonay DPM, Flynn Arzate Attending Unavailab le Aichholz MANAGER OF ENGINEERING-GENERAL EDUCATION PROFESSOR, Mckayla Lennon Primary Care Unava ilable Aichholz MANAGER OF ENGINEERING-GENERAL EDUCATION PROFESSOR, Mckayla Lennon Primary Care Unava ilable Adonay DPM, Flynn Arzate Attending Unavailab le Aichholz MANAGER OF ENGINEERING-GENERAL EDUCATION PROFESSOR, Mckayla Lennon Primary Care Unava ilable Bob MANAGER OF ENGINEERING-GENERAL EDUCATION PROFESSOR, Omero Lovell Attending Unav ailable Aichholz MANAGER OF ENGINEERING-GENERAL EDUCATION PROFESSOR, Mckayla Lennon Primary Care Unava ilable Adonay DPM, Flynn Arzate Attending Unavailab le Adonay DPM, Flynn Arzate Attending Unavailab le Bob MANAGER OF ENGINEERING-GENERAL EDUCATION PROFESSOR, Omero Lovell Consulting Unav ailable Aichholz MANAGER OF ENGINEERING-GENERAL EDUCATION PROFESSOR, Mckayla Lennon Primary Care Unava ilable Corinne Kellogg MD Attending Unavail able Bob MANAGER OF ENGINEERING-GENERAL EDUCATION PROFESSOR, Omero Lovell Attending Unav ailable Adonay DPM, Flynn Arzate Referring Unavailab le Allergies Allergy ClassificationReported Allergen(s)Allergy TypeDate of OnsetReaction(s) Facility (1 source)No Known Medication Allergies; Translations: [No Known Medication Allergies]Propensity to adverse reactions (disorder)[facility] Medications Current Medications MedicationDrug Class(es)DatesSig (Normalized)Sig (Original)0.5 ML tirzepatide 30 MG/ML Auto-Injector [Mounjaro] (1 source)Start: 99-87-4601qjnexu 15 mg by subcutaneous injection every week Mounjaro 15 mg/0.5 mL subcutaneous solution INJECT 15MG SUBCUTANEOUSLY ONCE A WEEK Start Date: 06/11/24 Status: Orderedacetaminophen 325 mg / HYDROcodone bitartrate 5 mg oral tablet (20 sources)Opioid AgonistStart: 07-60-1585tzwbsxlpjgdtl-hydrocodone 325 mg-5 mg oral tablet Refill(s) 0 Start Date: 02/06/22 Status: OrderedStart: 12-13-2017 End: 71-83-8893yosb 1 tablet by mouth every four hoursHydrocodone-Acetaminophen ([place]) 5-325 mg tablet Discontinued 1 TAB PO Q4H 15 0 December 13, 2017 April 05, 2025 12:52pm Fracture of humerus painStart: 99-48-6078qnkb 1 tablet by mouth every four to six hours as needed for painHYDROcodone-acetaminophen ([place]) 5-325 MG tablet 1 tablet 3 (three) times a day as needed for severe pain. Activetake 1 tablet by mouth twice daily as neededNorco 5-325 MG 1 tablet as needed Orally TWICE A DAY Activealbuterol 0.83 mg/ml inhalation solution (20 sources)beta2-Adrenergic AgonistStart: 24-43-7590ovzo 2.5 mg by inhalation every four to six hours as neededStart: 30-43-1448inskdatnm 0.083% Inh Tracey 3 mL Refill(s) 0 [...] oral tablet (20 sources)Tricyclic AntidepressantStart: 02-06-2022 End: 87-49-3708oqco 1 tablet by mouth once daily at bedtimeaspirin 81 mg chewable tablet (20 sources)Platelet Aggregation Inhibitor, Nonsteroidal Anti-inflammatory Drug Start: 11-01-2023 End: 15-30-4890wlzw 1 tablet by mouth once dailyaspirin 81 MG chewable tablet Chew 81 mg in the morning. 0 Activebaclofen 10 mg oral tablet (20 sources)gamma-Aminobutyric Acid-ergic AgonistStart: 26-25-1175tvqi 1 tablet by mouth every eight hours as neededStart: 17-36-4793ssdt 1 tablet by mouth in the morning, then take 1 tablet by mouth in the evening, then take 1 tablet by mouth at bedtimebaclofen (Lioresal) 10 MG tablet Take 10 mg by mouth in the morning and 10 mg in the evening and 10mg before bedtime. 06/24/2024 Jdqigo44 actuat budesonide 0.16 mg/actuat / formoterol fumarate [...] tablet (20 sources)Histamine-1 Receptor AntagonistStart: 11-01-2023 End: 81-00-0716hchb 1 tablet by mouth once daily as neededtake 1 tablet by mouth in the morningcetirizine (ZyrTEC) 10 MG tablet Take 10 mg by mouth in the morning. 0 Activedapagliflozin 10 mg oral tablet (20 sources)Sodium-Glucose Cotransporter 2 InhibitorStart: 01-17-2024 End: 32-90-7413bfrm 1 tablet by mouth once dailyStart: 08-14-2023 End: 18-56-9909hdwm 1 tablet by mouth in the morningdapagliflozin (Farxiga) 10 MG Indications: Type 2 diabetes mellitus with unspecified complications ( CMS/HCC) Take 1 tablet (10 mg) by mouth in the morning. 90 tablet 1 08/14/2023 11/12/2023 Activediclofenac sodium 75 mg delayed release oral tablet (20 sources)Nonsteroidal Anti-inflammatory DrugStart: 12-55-7607pokv 1 tablet by mouth twice daily0.5 ML dulaglutide 9 MG/ML Auto-Injector [Trulicity] (4 sources)GLP-1 Receptor AgonistStart: 95-65-5168Zhhwekhfu Pen 4.5 mg/0.5 mL subcutaneous solution Refills(s) [...] sources)Serotonin and Norepinephrine Reuptake InhibitorStart: 11-01-2023 End: 32-85-4889ipgi 1 capsule by mouth twice dailyStart: 07-23-2023 End: 26-96-3820pfvq 1 capsule by mouth in the morningDULoxetine (Cymbalta) [address] capsule Indications: Anxiety and depression (CMS/HCC) Take 1 capsule(60 mg) by mouth in the morning and 1 capsule (60 mg) before bedtime. Do not crush or chew.. 60 capsule 3 07/23/2023 08/22/2023 ActiveStart: 23-95-5129ZQPkkqlomy 30 mg Cap-EC Refills(s) 0 Start Date: 02/06/22 Status: OrderedDULoxetine 30 mg Cap-EC (2 sources)Start: 11-31-9015FBKilxgnyp 30 mg Cap-EC Refills(s) 0 Start Date: 02/06/22 Status: Orderedergocalciferol 1.25 mg oral capsule (20 sources)Provitamin D2 CompoundStart: 09-58-9838Cjqre: 01-16-2025 End: 03-01-9616rxtp 1 capsule by mouth every weekergocalciferol (Vitamin D2) 1.25 MG (42263 UT) capsule Indications: Vitamin D deficiency, unspecified Take 1 capsule (1.25 mg) by mouth 1 (one) time per week 12 capsule 1 01/16/2025 04/10/2025 ActiveStart: 10-27-2024 End: 89-29-4834lsar 1 capsule by mouth two times weeklyergocalciferol (Vitamin D2) 1.25 MG (81694 UT) capsule Indications: Vitamin D deficiency, unspecified Take 1 capsule (1.25 mg) by mouth 2 (two) times a week 24 capsule 1 10/27/2024 01/19/2025 ActiveStart: 04-06-2024 End: 74-41-1854vydi 1 capsule by mouth every weekergocalciferol (Vitamin D2) 1.25 MG (59456 UT) capsule Indications: Vitamin D deficiency, unspecified TAKE 1 CAPSULE BY MOUTH ONE TIME PER WEEK 12 capsule 1 04/06/2024 10/27/2024 Discontinued (Reorder)fluconazole 150 mg oral tablet (20 sources)Azole AntifungalStart: 08-27-2024 End: 08-12-5760kzqqgmakxoi (Diflucan) 150 MG tablet Indications: Antibiotic- induced yeast infection One time dose,repeat in 3 days . Do not take cholesterol pill while taking this medication. Once finished then resume 2 tablet 1 01/26/2025 ActiveStart: 08-17-2023 End: 75-56-2230dwnyckfjvze (Diflucan) 150 MG tablet Indications: Vaginal yeast infection Take 1 tablet (150 mg) bymouth in the morning for 2 days. One time dose, may repeat in 3 days. 2 tablet 1 08/17/2023 08/19/2023 Active End: 72-85-7481qgttwgpktqc (Diflucan) 150 MG tablet Take 200 mg by mouth in the morning. 0 08/17/2023 Discontinued(Reorder)furosemide 20 mg oral tablet (20 sources)Loop DiureticStart: 09-22-2024 End: 87-80-5482yykw 1 tablet by mouth once dailyStart: 04-06-2024 End: 80-73-0083ogyb 1 tablet by mouth once dailyfurosemide (Lasix) 40 MG tablet Indications: Bilateral lower extremity edema Take 1 tablet (40 mg) by mouth Daily 90 tablet 1 04/06/2024 ActiveStart: 12-13-2017 End: 75-72-5934wyky 1 tablet by mouth once daily as [...] oral tablet (20 sources)Arteriolar VasodilatorStart: 09-13-2023 End: 04-52-1416jpxa 1 tablet by mouth twice dailysodium hypochlorite 2.5 mg/ml topical solution (14 sources)Start: 82-41-5024HgAvyo 0.25 % external solution APPLY TO GAUZE [...] with supper. 0 ActiveNovoLog (5 sources)Insulin AnalogStart: 79-30-1608QbzrUuk SubCutaneous, TIDAC, Refills(s) 0 Start Date: 02/06/22 Status: OrderedNovoLOG 100 UNIT/ML as directed Injection SLIDING SCALE BEFORE EACH MEAL Active3 ml insulin glargine 100 unt/ml pen injector (20 sources)Insulin AnalogStart: 46-79-8733Oguyv: 70-82-0812ctdlyqq glargine (Lantus SoloStar) 100 UNIT/ML pen Indications: Type 2 diabetes mellitus with hyperglycemia, with long-term current use of insulin (HCC) INJECT 58 UNITS SUBCUTANEOUSLY TWICE A DAY 105mL 2 02/16/2025 ActiveStart: 01-29-2025 End: 73-86-6239jndkgu 58 [IU] by subcutaneous injection in the morninginsulin glargine (Lantus) 100 UNIT/ML injection Indications: Type 2 diabetes mellitus with hyperglycemia, with long-term current use of insulin (HCC) Inject 58 Units under the skin in the morning and58 Units before bedtime. 104.4 mL 1 01/29/2025 07/28/2025 ActiveStart: 59-20-1125Ldjvrk SoloStar 100 UNIT/ML pen 08/26/2024 ActiveStart: 10-30-2023 End: 69-59-6469Tjcmss SoloStar 100 UNIT/ML pen 10/30/2023 04/14/2024 Discontinued (Therapy completed)Start: 43-69-8288Tzofdv Solostar Pen 100 units/mL subcutaneous solution Refills(s) 0 Start Date: 02/06/22 Status: Ordered Start: 12-13-2017 End: 98-36-2827runcwm 50 [IU] by subcutaneous injection twice dailyInsulin Glargine (Lantus U-100 Insulin) 100 unit/mL Solution Discontinued 50 UNIT SUBCUT Twice daily December 13, 2017 12:00am April 05, 2025 12:53pmLantus SoloStar 100 UNIT/ML as directed Subcutaneous 58 UNITS ONCE A DAY Active3 ml insulin lispro 100 unt/ml pen injector (20 sources)Insulin AnalogStart: 10-06-2023 End: 09-61-5359BvozZYF KWIKPEN 100 UNIT/ML injection Inject under the skin 10/06/2023 04/14/2024 Discontinued (Therapy completed)Start: 96-21-2432zioxkb 1 [IU] by subcutaneous injection before mealtimeInsulin [...] lactate 120 mg/ml topical lotion (20 sources)Start: 60-99-1754Kfydt: 11-07-2608mnozyzqi lactate (Lac-Hydrin) 12 % lotion 07/22/2024 ActiveStart: 83-61-9834depdixcv lactate (Lac-Hydrin) 12 % lotion APPLY TO BILATERAL FEET EVERY DAY 07/22/2024 Activelisinopril 20 mg oral tablet (20 sources)Angiotensin Converting Enzyme InhibitorStart: 02-06-2022 End: 75-09-6245nuwd 1 tablet by mouth once dailymeloxicam (5 sources)Nonsteroidal Anti-inflammatory DrugStart: 78-01-5932inawxnfkt Daily, Refills(s) 0 Start Date: 02/06/22 Status: Orderedtake 1 tablet by mouth every twenty-four hoursMeloxicam 7.5 MG 1 tablet Orally Once a day ActivemetFORMIN hydrochloride 1000 mg oral tablet (1 source)Biguanidetake 1 tablet by mouth twice daily at mealtimemetFORMIN (GLUCOPHAGE) 1000 MG tablet Take 1,000 mg by mouth 2 times daily (with meals). 0 ActiveMounjaro 10 MG/0.5ML solution pen-injector (4 sources)Start: 10-22-2023 End: 04-45-3081qflnyz 10 mg by subcutaneous injection every weekMounjaro 10 MG/0.5ML solution pen-injector INJECT 10MG SUBCUTANEOUSLY ONCE A WEEK 10/22/2023 04/14/2024 Discontinued (Therapy completed)Start: 48-95-8501vsgowy 10 mg by subcutaneous injection every weekMounjaro 10 MG/0.5ML solution pen-injector INJECT 10MG SUBCUTANEOUSLY ONCE A WEEK 10/22/2023 ActiveMounjaro 15 MG/0.5ML solution auto-injector (8 sources)Start: 32-11-0392Uovqcftw 15 MG/0.5ML solution auto-injector Inject 15 mg as directed every 7 (seven) days 02/18/2024 Activenaloxone hydrochloride 40 mg/ml nasal spray (20 sources)Opioid AntagonistStart: 51-44-7376Kyoer: 82-83-1865mftjfvfn (Narcan) 4 mg/0.1 mL nasal spray Administer 4 mg into affected nostril(s) if needed 07/04/2024 Hdhltr18 hr nicotine 0.875 mg/hr transdermal system (20 sources)Cholinergic Nicotinic AgonistStart: 07-14-2024 End: 02-73-3235bxnmdzvw (Nicoderm, Step 1) 21 MG/24HR patch Indications: [...] capsule (20 sources)Proton Pump InhibitorStart: 12-25-2023 End: 25-77-3032vlqb 1 capsule by mouth once dailytake 1 capsule by mouth before mealtimeomeprazole (PriLOSEC) [address] capsule Take 20 mg by mouth in the morning. Take before meals. Do not crush or chew. . 0 ActiveOxygen (20 sources)oxygen (O2) gas Inhale 2 L/min continuously via nasal canula Active potassium chloride 10 meq extended release oral tablet (20 sources)Start: 08-50-2056Srdoh: 02-06-2022 End: 37-68-0748gutv 1 capsule by mouth once daily in the morningpotassium chloride ER (Micro-K) 10 MEQ ER capsule Indications: Bilateral lower extremity edema Take1 capsule (10 mEq) by mouth Daily Take 1 capsule (10 mEq) by mouth in the morning. 90 capsule 1 01/26/2025 04/26/2025 ActiveStart: 12-13-2017 End: 54-12-5229Nwxpbtajq Chloride (Klor-Con 10) 10 mEq Tablet Extended Release Discontinued 10 MEQ PO Twice daily December 13, 2017 12:00am April 05, 2025 12:56pmtake 1 tablet by mouth every twenty-four hoursPotassium Chloride ER 10 MEQ 1 tablet with food Orally Once a day ActivepredniSONE 10 mg oral tablet (11 sources)Start: 16-71-1359flmfhqAXOY (Deltasone) 10 MG tablet 4 TABS X3 DAYS, 3TABS X3 DAYS, 2 TABS X3 DAYS, 1 TAB X3 DAYS, 1/2 TAB X4 DAYS 12/05/2024 Active pregabalin 150 mg oral capsule (20 sources)Start: 21-94-2366nrrh 1 capsule by mouth once dailyStart: 08-13-2024 take 1 capsule by mouth once dailypregabalin (Lyrica) 150 MG capsule Take 150 mg by mouth Daily 08/13/2024 ActiveStart: 98-53-0061Utzqsm Oral, Refills(s) 0 Start Date: 02/06/22 Status: OrderedStart: 12-13-2017 End: 06-41-2402fwfw 1 capsule by mouth in the morningpregabalin (Lyrica) 300 MG capsule Indications: Diabetic polyneuropathy associated with type 2 diabetes mellitus (HCC) Take 1 capsule (300 mg) by mouth in the morning and 1 capsule (300 mg) before bedtime. 60 capsule 5 04/14/2024 Activeroflumilast 0.5 mg oral tablet (20 sources)Phosphodiesterase 4 InhibitorStart: 01-04-2024 End: 77-97-6195hcep 1 tablet by mouth once dailysimvastatin 10 mg oral tablet (20 sources)HMG-CoA Reductase InhibitorStart: 12-19-2024 End: 37-88-4527nrln 1 tablet by mouth once daily at bedtimeStart: 04-06-2024 End: 54-48-7210grvm 1 tablet by mouth at bedtimesimvastatin (Zocor) 10 MG tablet Indications: Hyperlipidemia, unspecified (CMS/HCC) Take 1 tablet (10 mg) by mouth at bedtime 90 tablet 1 08/27/2024 ActiveStart: 06-15-2023 End: 21-58-9092naot 1 tablet by mouth in the morningsimvastatin (Zocor) 10 MG tablet Indications: Hyperlipidemia, unspecified (CMS/HCC) Take 1 tablet (10 mg) by mouth in the morning. 90 tablet 1 06/15/2023 09/13/2023 ActiveStart: 12-13-2017 End: 25-90-8217mtaw 1 tablet by mouth once daily in the eveningSimvastatin 20 mg Tablet Discontinued 20 MG PO Every evening December 13, 2017 12:00am March 1:00pmsulfamethoxazole 800 mg / trimethoprim 160 mg oral tablet (15 sources)Dihydrofolate Reductase Inhibitor Antibacterial, Sulfonamide AntimicrobialStart: 85-65-1921dlmy 1 tablet by mouth twice daily sulfamethoxazole-trimethoprim (Bactrim DS) 800-160 MG per tablet TAKE 1 TABLET BY MOUTH TWICE A DAYFOR 14 DAYS 01/14/2025 ActiveStart: 08-27-2024 End: 62-57-1063rsahgrelfyevvagt-trimethoprim (Bactrim DS) 800-160 MG per tablet 08/27/2024 10/27/2024 Discontinued(Therapy completed)Symbicort 160/4.5 inhalation aerosol with adapter (3 sources)Start: 63-38-8529Dltyypyvz 160/4.5 inhalation aerosol with adapter Refill(s) 0 Start Date: 02/06/22 Status: Efnooeh66 actuat tiotropium 0.0025 mg/actuat inhalation spray (7 sources)AnticholinergicStart: 07-60-2297Ckvmnrk Respimat 60 ACT 2.5 mcg/inh inhalation aerosol Refills(s) 0 Start Date: 02/06/22 Status: Orderedtake 2 puff(s) by inhalation in the morningtiotropium (Spiriva Respimat) 2.5 MCG/ACT inhaler Inhale 2 puffs in the morning. 0 Activetake 2 puff(s) by inhalation twice daily Spiriva Respimat 2.5 MCG/ACT 2 puffs Inhalation TWICE A DAY ActiveTirzepatide (2 sources)Start: 09-45-3485Mghfzvodbdh (Mounjaro) 15 MG/0.5ML solution auto-injector (20 sources)Start: 54-41-9505squect 15 mg by subcutaneous injection every week Tirzepatide (Mounjaro) 15 MG/0.5ML solution auto-injector Indications: Type 2 diabetes mellitus with other circulatory complications (HCC) Inject 15 mg under the skin 1 (one) time per week 6 mL 1 02/27/2025 ActiveStart: 46-90-0270cyksuo 15 mg by subcutaneous injection every weekTirzepatide (Mounjaro) 15 MG/0.5ML solution auto-injector Indications: Type 2 diabetes mellitus with other circulatory complications (HCC) INJECT 15MG SUBCUTANEOUSLY ONCE A WEEK 6 mL 1 07/07/2024 ActiveStart: 00-05-1281rezfvn 15 mg by subcutaneous injection every weekTirzepatide (Mounjaro) 15 MG/0.5ML solution auto-injector Indications: Type 2 diabetes mellitus with other circulatory complications INJECT 15MG SUBCUTANEOUSLY ONCE A WEEK 6 mL 1 07/07/2024 ActiveStart: 77-95-5435vweptg 15 mg by subcutaneous injection every weekTirzepatide [...] oral tablet (20 sources)Partial Cholinergic Nicotinic AgonistStart: 65-83-2514jubo 1 tablet by mouth twice dailyStart: 12-19-2024 End: 18-15-6480bstg 1 tablet by mouth in the morningvarenicline (Chantix) 1 MG tablet Indications: Tobacco user , Encounter for smoking cessation counseling TAKE 1 TABLET BY MOUTH IN THE MORNING AND 1 TABLET BEFORE BEDTIME. TAKE WITH FULL GLASS OF WATER. 60 tablet 1 03/09/2025 ActiveStart: 08-27-2024 End: 29-67-7307tqkb 1 tablet by mouth in the morningvarenicline (Chantix) 1 MG tablet Indications: Tobacco user , Encounter for smoking cessation counseling Take 1 tablet (1 mg) by mouth in the morning and 1 tablet (1 mg) before bedtime. Take with full glass of water.. 60 tablet 1 08/27/2024 ActiveStart: 12-05-2023 End: 91-96-9738Vxzxtflifck Tartrate, Starter, 0.5 MG X 11 & 1 MG X 42 tablet [facility]/05/2023 07/14/2024 Discontinued (Therapy completed)Start: 46-75-5917Hcykbrhkcuw Tartrate, Starter, 0.5 MG X 11 & 1 MG X 42 tablet [facility]23 Active Completed/Discontinued Medications MedicationDrug Class(es)DatesSig (Normalized)Sig (Original)amoxicillin 875 mg / clavulanate 125 mg oral tablet (6 sources)Penicillin-class AntibacterialStart: 12-05-2024 End: 30-80-2043ubdq 1 tablet by mouth every twelve hoursamoxicillin-clavulanate (Augmentin) 875-125 MG tablet Take 1 tablet by mouth every 12 (twelve) hours 12/05/2024 01/26/2025 Discontinued (Therapy completed)cephalexin 500 mg oral capsule (9 sources)Cephalosporin AntibacterialStart: 2024 End: 81-35-7931zszblctnqp (Keflex) 500 MG capsule 2024 10/27/2024 Discontinued (Therapy completed)Glucose Blood (ACCU-CHEK JAQUI PLUS ) (14 sources) End: 08-81-4716Thlydxa Blood (ACCU-CHEK JAQUI PLUS ) 4 (four) times a day. 07/14/2024 Discontinued (Therapy completed)Glucose Blood (ACCU-CHEK JAQUI PLUS ) 4 (four) times a day. ActiveGlucose Blood (ACCU-CHEK JAQUI PLUS ) 4 (four) times a day. 0 Active3 ml liraglutide 6 mg/ml pen injector (6 sources)GLP-1 Receptor Agonist End: 80-58-3069othqagpeyux (Victoza) 18 MG/3ML injection Inject under the skin Daily 07/14/2024 Discontinued (Therapy completed)naproxen 500 mg oral tablet (2 sources)Nonsteroidal Anti-inflammatory DrugStart: 12-13-2017 End: 05-89-7016vwsy 1 tablet by mouth twice daily at mealtimeNaproxen 500 mg tablet Discontinued 500 MG PO Twice daily 20 0 December 13, 2017 12:00am April 05, 2025 12:53pm administer with food or milknortriptyline 50 mg oral capsule (18 sources)Tricyclic AntidepressantStart: 12-13-2017 End: 12-03-7178izrg 1 capsule by mouth once daily at bedtimeNortriptyline 50 mg Capsule Discontinued 50 MG PO Daily at bedtime December 13, 2017 12:00am April 05, 2025 12:53pmubrogepant 100 mg oral tablet (12 sources) End: 63-96-9209sfqt 1 tablet by mouth every twenty-four hours as needed Ubrogepant (Ubrelvy) 100 MG tablet Take 100 mg by mouth Daily as needed 07/14/2024 Discontinued (Therapy completed) Problems Active Problems Problem ClassificationProblemDateDocumented DateEpisodic/ChronicAbdominal pain (6 sources)Left flank pain; Translations: [Lower abdominal pain, unspecified] Onset: 576766-38-6632NdujqgneGlhcvswe foot deformities (1 source)Other hammer toe(s) (acquired), right foot; Translations: [OTHER HAMMER TOES ACQUIRED RT FOOT]Onset: 31-66-5171VrydhlkGyijmxzy foot deformities (1 source)Other hammer toe(s) (acquired), left foot; Translations: [OTHER HAMMER TOES ACQUIRED LT FOOT]Onset: 13-92-6057YptlyrnEqwmnia disorders (20 sources)Mixed anxiety and depressive disorder; Translations: [Anxiety disorder, unspecified]Onset: 818125-20-4581DhweejfKqkyme (20 sources)Asthma; Translations: [Unspecified asthma, uncomplicated]Onset: 897204-44-4809MycepokRhkmjl of cervix (20 sources)Malignant tumor of cervix; Translations: [Malignant neoplasm of cervix uteri, unspecified]Onset: 211876-37-6430KyookczXiigrt of cervix (2 sources)History of malignant neoplasm of cervix; Translations: [Personal history of malignant neoplasm of cervix uteri]08-23-2801VvdtfqooGegmbbt kidney disease (5 sources)Chronic kidney disease; Translations: [Chronic kidney disease, unspecified]Onset: 02-20-2022 Resolved: 36-14-6461RsoxwtaIpmwrym obstructive pulmonary disease and bronchiectasis (20 sources)Pulmonary emphysema; Translations: [Chronic obstructive pulmonary disease with (acute) exacerbation]Onset: 168747-16-0167PltvhytVhkfyhn ulcer of skin (20 sources)Non-pressure chronic ulcer of other part of right lower leg limited to breakdown of skin; Translations: [Non-pressure chronic ulcer of other part of left lower leg limited to breakdown of skin]Onset: 323373-13-6316Qpydmwp Congestive heart failure; nonhypertensive (20 sources)Chronic diastolic heart failure; Translations: [Chronic diastolic (congestive) heart failure]Onset: 082295-12-6244MyzyjqjBoaklyaz mellitus with complications (20 sources)Disorder of kidney due to diabetes mellitus; Translations: [Type 2 diabetes mellitus with diabetic chronic kidney disease]Onset: 02-20-2022 Resolved: 41-00-0508KgajfdgAvaawjyh mellitus without complication (13 sources)Type 2 diabetes mellitus; Translations: [Type 2 diabetes mellitus without complications]Onset: 401074-49-4344ZjhjhtzHurptydwt of lipid metabolism (20 sources)Pure hypercholesterolemia, unspecified; Translations: [Hyperlipidemia, unspecified]Onset: 263171-32-7994VikjarfBefpxyetlx disorders (20 sources)Gastro-esophageal reflux disease without esophagitis; Translations: [Gastroesophageal reflux disease]Onset: 12-05-2022 Resolved: 256209-03-3160DbsrisnUtzgohdlm hypertension (20 sources)Hypertensive disorder; Translations: [Essential (primary) hypertension]Onset: 595143-68-2371HmtwinhRqcvccckcbnzs symptoms and ill- defined conditions (20 sources)Mixed incontinence; Translations: [Incontinence]Onset: 02-06-2022 ChronicGout and other crystal arthropathies (20 sources)Gout; Translations: [Gout, unspecified]Onset: ChronicHypertension with complications and secondary hypertension (5 sources)Chronic kidney disease due to hypertension; Translations: [Hypertensive chronic kidney disease withstage 1 through stage 4 chronic kidney disease, or unspecified chronic kidney disease]Onset: 02-20-2022 Resolved: 67-12-4841QnwidgaTraa disorders (1 source)Major depressive disorder, single episode, unspecified; Translations: [ANASTACIO DEPRESS D/O SINGLE EPIS UNS]Onset: 52-61-4911FttryyrPcrblucmcgezq gastroenteritis (1 source)Noninfective gastroenteritis and colitis, unspecified; Translations: [NONINFECTIVE GE AND COLITIS UNS]Onset: 38-70-2483VtlsqrtmGjaejwbwask deficiencies (20 sources)Vitamin D deficiency; Translations: [Vitamin D deficiency, unspecified]Onset: 033669-53-2100NxllnpaHgknlgstjjadbc (20 sources)Arthritis; Translations: [Unspecified osteoarthritis, unspecified site]Onset: 568003-91-5856WgqawvnItitq aftercare (1 source)Other residential (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 therapy; Translations: [OTH RETIREMENT CURRENT DRUG THERAPY]Onset: 93-49-0174YsftzhnbGxyqx aftercare (1 source)[facility] (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; Translations: [RETIREMENT CURRENT USE OF ASPIRIN]Onset: 43-32-7959OjuwmfbqXfsnk aftercare (6 sources)Long-term current use of insulin; Translations: [[facility] (current) use of insulin]06-99-8044XgvunoaqNrcfu and ill-defined heart disease (20 sources)Cardiomegaly; Translations: [Cardiomegaly]Onset: 10-25-2017 52-15-5986FbzcwtrRtcll and ill-defined heart disease (1 source)Cardiomegaly; Translations: [Cardiomegaly]Onset: 54-76-8372Eybzdzq Other and unspecified benign neoplasm (1 source)Benign lipomatous tumor; Translations: [Benign lipomatous neoplasm of other sites]Onset: 63-30-8979PznccukeCfzwz bone disease and musculoskeletal deformities (1 source)Acquired absence of other left toe(s); Translations: [ACQUIRED ABSENCE OF OTHER LEFT TOES]Onset: 74-42-6167OdciaxczVagga diseases of kidney and ureters (1 source)Urinary tract obstruction; Translations: [Other obstructive and reflux uropathy]Onset: 74-93-4603YmviwrpgNtowf diseases of veins and lymphatics (1 source)Chronic venous hypertension (idiopathic) with ulcer and inflammation of bilateral lower extremity; Translations: [CHRN KEO HTN ULCR INFLAM ALEX LW EXT]Onset: 55-74-1674SvmzwefSrduw diseases of veins and lymphatics (1 source)Chronic venous hypertension (idiopathic) with ulcer of left lower extremity; Translations: [CHRON VENOUS HTN W/ULCER LT LW EXT]Onset: 09-01-2022 ChronicOther diseases of veins and lymphatics (1 source)Lymphedema, not elsewhere classified; Translations: [LYMPHEDEMA NOT ELSEWHERE CLASSIFIED]Onset: 18-76-3790GloljgwVlwob diseases of veins and lymphatics (5 sources)Chronic peripheral venous hypertension with lower extremity complication; Translations: [Chronic venous hypertension (idiopathic) with ulcer of bilateral lower extremity]Onset: 097857-78-9413UdutpahJdqhc diseases of veins and lymphatics (20 sources)Chronic peripheral venous hypertension; Translations: [Chronic venous hypertension (idiopathic) with ulcer of bilateral lower extremity]Onset: 601464-89-4852ZivuxoeIaoqh diseases of veins and lymphatics (18 sources)Stasis dermatitis and venous ulcer of right lower extremity due to chronic peripheral venous hypertension; Translations: [Chronic venous hypertension (idiopathic) with ulcer and inflammation of rightlower extremity] Onset: 020431-69-5538OflukrrDywja endocrine disorders (2 sources)Disorder of adrenal gland; Translations: [Other specified disorders of adrenal gland]Onset: 07-41-5270BqrjcczMwudu endocrine disorders (20 sources)Adrenal mass; Translations: [Disorder of adrenal gland, unspecified] Onset: 013319-85-8427CorjwefGbqxv endocrine disorders (2 sources)Disorder of adrenal gland, unspecifiedOnset: 02-20-2022 Resolved: 55-91-4279XvnrghlClcwi endocrine disorders (5 sources)Other specified disorders of adrenal gland; Translations: [OTHER SPEC DISORDERS ADRENAL GLAND]Onset: 62-34-0251MbicrpcQzucu gastrointestinal disorders (3 sources)Adrenal hlcg14-84-4148XymobhklLpncl lower respiratory disease (1 source)Hypoxemia; Translations: [HYPOXEMIA]Onset: 46-77-8789JynegoziIhkjj nervous system disorders (5 sources)Chronic pain syndrome; Translations: [CHRONIC PAIN SYNDROME]Onset: 32-88-5312TuntqnsDxnzu nervous system disorders (1 source)Other chronic pain; Translations: [OTHER CHRONIC PAIN]Onset: 62-66-1566LihaikrOfwnb non-traumatic joint disorders (4 sources)Pain in right hip; Translations: [PAIN IN RIGHT HIP]Onset: 04-27-2022 EpisodicOther nutritional; endocrine; and metabolic disorders (2 sources)Localized adiposity; Translations: [Localized adiposity]ChronicOther nutritional; endocrine; and metabolic disorders (20 sources)Body mass index 40+ - severely obese; Translations: [Body mass index (BMI) 50.0-59.9, adult]Onset: 817623-09-0179BcvbswsAeafl nutritional; endocrine; and metabolic disorders (3 sources)Body mass index (BMI) 50.0-59.9, adult; Translations: [BODY MASS INDEX BMI 50.0-59.9 ADULT]Onset: 61-15-1903LvusumzTgmlj nutritional; endocrine; and metabolic disorders (3 sources)Morbid (severe) obesity due to excess calories; Translations: [MORBID SEVERE OBES D/T EXCESS NHI]Onset: 50-62-3672PncbtbqYbngn nutritional; endocrine; and metabolic disorders (1 source)Obesity, unspecified; Translations: [OBESITY UNSPECIFIED]Onset: 88-98-4018QetglkoYvdpy nutritional; endocrine; and metabolic disorders (20 sources)Obesity caused by energy imbalance; Translations: [Morbid (severe) obesity due to excess calories]Onset: 820823-32-0791VrembdwMhyyl screening for suspected conditions (not mental disorders or infectious disease) (1 source)Encounter for screening mammogram for malignant neoplasm of breast; Translations: [ENC SCR MAMMO MALIG NEOPLASM BREAST]Onset: 13-08-1420Xvfhxjzi Other skin disorders (2 sources)Bilateral localized swelling of lower legs; Translations: [Localized swelling, mass and lump, lowerlimb, bilateral]65-19-8079TryuksfcPxvqz upper respiratory disease (20 sources)Allergic rhinitis; Translations: [Other allergic rhinitis]Onset: 438073-16-4364TylmpocYyfztpplcl and visceral atherosclerosis (20 sources)Peripheral vascular disease, unspecified; Translations: [Peripheral vascular disease, unspecified]Onset: 426673-53-6923ZklpveuPequtmaln heart disease (20 sources)Pulmonary hypertension; Translations: [Pulmonary hypertension, unspecified]Onset: 634928-55-0674CmjuaaiHukrglws codes; unclassified (3 sources)Obstructive sleep apnea (adult) (pediatric); Translations: [OBSTRUCTIVE SLEEP APNEA]Onset: 69-17-7761CnuoougUmmruspc codes; unclassified (20 sources)Obstructive sleep apnea syndrome; Translations: [Obstructive sleep apnea (adult) (pediatric)]Onset: 060598-89-2139HxbffzdVaagwwcp codes; unclassified (1 source)Acquired absence of other specified parts of digestive tract; Translations: [ACQ ABSENCE OTH PART DIGESTV TRACT]Onset: 13-76-4977Iiunjpsp Residual codes; unclassified (1 source)Acquired absence of both cervix and uterus; Translations: [ACQUIRED ABSENCE BOTH CERVIX AND UTERUS]Onset: 60-99-3645MubiinhmHsbrydbn codes; unclassified (1 source)Family history of malignant neoplasm of ovary; Translations: [FAM HX MALIGNANT NEOPLASM OVARY]Onset: 65-26-3379PlmcweayOwbxrdfr codes; unclassified (1 source)Family history of malignant neoplasm, unspecified; Translations: [FAM HX MALIGNANT NEOPLASM UNS]Onset: 80-91-3845HawesuutExqosynyc-related disorders (20 sources)Nicotine dependence; Translations: [Nicotine dependence, unspecified, uncomplicated]Onset: 23-84-5025BnppvqaXwkdqqi on above:Added secondary to documentation in Social History.Unclassified (1 source)RETIREMENT INJECT NONINSULN ANTIDIAB; Translations: [RETIREMENT INJECT NONINSULN ANTIDIAB]Onset: 68-52-6935Hhhwfpchavnp (3 sources)CONTACT W/AND (SUSP) EXPOS COVID-19; Translations: [CONTACT W/AND (SUSP) EXPOS COVID-19]Onset: 72-64-4656Nxlleorlvbji (3 sources)LOW BACK PAIN, UNSPECIFIED; Translations: [LOW BACK PAIN, UNSPECIFIED]Onset: 47-75-1756Bzxhiitrlvoq (1 source)Obesity, class 3; Translations: [Obesity, class 3]Onset: 11-14-2023 Viral infection (1 source)COVID-19; Translations: [COVID-19]Onset: 09-29-2022 Past or Other Problems Problem ClassificationProblemDateDocumented DateEpisodic/ChronicAcquired foot deformities (1 source)Other deformities of toe(s) (acquired), left foot; Translations: [OTHER DEFORMITIES TOES ACQ LT FOOT]Onset: 82-75-4329Ijexdfod Administrative/social admission (20 sources)Patient encounter status; Translations: [Dietary counseling and surveillance]Onset: 019445-41-2947FnjzdlfkTkhzcidz of urinary tract (20 sources)Kidney stone; Translations: [Calculus of kidney]Onset: 02-06-2022 EpisodicE Codes: Natural/environment (1 source)Other and unspecified overexertion or strenuous movements or postures, initial encounter; Translations: [OTH AND UNS OVREXRT/STRN MVMT/POS INT]Onset: 17-73-4088XidnftpbAihwy of unknown origin (18 sources)Fever; Translations: [Fever, unspecified]Onset: EpisodicGenitourinary symptoms and ill-defined conditions (20 sources)Proteinuria; Translations: [Proteinuria, unspecified]Onset: 02-06-2022 Resolved: 01-40-8756QjhgcvkuSbftjecu; including migraine (20 sources)Headache; Translations: [Headache disorder]Onset: 01-17-2024 76-53-4310VxgaukdsFugxscxxtepjt and screening for infectious disease (20 sources)Encounter for screening for other infectious and parasitic diseases; Translations: [Anti-nuclear factor positive]Onset: 901149-08-8278Gvknebkx Mood disorders (20 sources)Mood disorders; Translations: [DEPRESSION UNSPECIFIED]Onset: 067169-33-8728Kztiwjo (20 sources)Tinea unguium; Translations: [Candidiasis of vagina]Onset: 70-98-3122WkqmrnxjUnerzfesguu deficiencies (20 sources)Vitamin deficiency; Translations: [Vitamin deficiency, unspecified] Onset: 263615-53-1667OqybkxozJrwji aftercare (3 sources)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; Translations: [TELETYPE ADJUSTER CURRENT USE OF INSULIN]Onset: 00-53-8968IptxeekfInmgf aftercare (20 sources)Long-term current use of inhaled steroid; Translations: [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 (current) use of inhaled steroids]Onset: 394667-02-9612IdipgjqiYoxan and unspecified benign neoplasm (20 sources)Myelolipoma of adrenal gland; Translations: [Benign lipomatous neoplasm of other sites]Onset: 830670-21-4580AysaazkmTqctb connective tissue disease (4 sources)Other muscle spasm; Translations: [OTHER MUSCLE SPASM]Onset: 17-93-2880CnmfbpchAdint diseases of veins and lymphatics (20 sources)Vascular insufficiency; Translations: [Venous insufficiency (chronic) (peripheral)]Onset: 170167-87-7750RdoydpkbLfpgd diseases of veins and lymphatics (2 sources)Venous insufficiency (chronic) (peripheral); Translations: [Venous insufficiency (chronic) (peripheral)]Onset: 13-70-5101AipmvtduCupyc hematologic conditions (1 source)Secondary polycythemiaOnset: 03-08-2022 Resolved: 88-41-5190EcsbjqwrTxlxp nervous system disorders (20 sources)Reduced mobility; Translations: [Other abnormalities of gait and mobility]Onset: 735464-19-1207IvjxyhjmSnqby non-traumatic joint disorders (1 source)Effusion, left knee; Translations: [EFFUSION LEFT KNEE]Onset: 66-08-1556RyywtvexFeflw non-traumatic joint disorders (1 source)Pain in left knee; Translations: [PAIN IN LEFT KNEE]Onset: 07-26-2022 EpisodicOther non-traumatic joint disorders (20 sources)Pain in right knee; Translations: [Pain in joint, lower leg]Onset: 417746-68-2989QukmbsjaTmfog nutritional; endocrine; and metabolic disorders (20 sources)Severe obesity; Translations: [Morbid (severe) obesity due to excess calories]Onset: 07-10-2023 Resolved: 988139-35-2598JnwbcfrXuvxi nutritional; endocrine; and metabolic disorders (20 sources)Excess panniculus of abdomen; Translations: [Localized adiposity] Onset: 10-25-2017 Resolved: 388542-55-2859TahvsimKbque skin disorders (1 source)Nail dystrophy; Translations: [NAIL DYSTROPHY]Onset: 09-01-2022 EpisodicOther skin disorders (1 source)Corns and callosities; Translations: [CORNS AND CALLOSITIES]Onset: 84-86-5564NgjykiymFgouz skin disorders (1 source)Xerosis cutis; Translations: [XEROSIS CUTIS]Onset: 09-58-5917Zwdvkblk Other skin disorders (20 sources)Hyperpigmentation of skin; Translations: [Disorder of pigmentation, unspecified]Onset: 086361-02-5239TsfbtdksTfktlb media and related conditions (20 sources)Acute suppurative otitis media without spontaneous rupture of ear drum; Translations: [Acute suppurative otitis media without spontaneous rupture of ear drum, left ear]Onset: 01-17-2024 Resolved: 159576-03-0177HzghmckmFgqedngyji disorders (not diabetes) (20 sources)Acute pancreatitis without necrosis or infection, unspecified; Translations: [Pancreatitis]Onset: 705127-37-2111PmuycyljJbrzbtzuj (except that caused by tuberculosis or sexually transmitted disease) (20 sources)Pneumonia; Translations: [Pneumonia, unspecified organism]Onset: 09-17-2023 Resolved: 696498-73-4369VonfwalyVsnjlrnn codes; unclassified (3 sources)Localized edema; Translations: [LOCALIZED EDEMA]Onset: 09-01-2022 EpisodicResidual codes; unclassified (20 sources)Edema; Translations: [Edema, unspecified]Onset: 07-10-2023 Resolved: 195093-09-7935IxseckupPttvjwmo codes; unclassified (20 sources)Bilateral lower limb edema; Translations: [Localized edema]Onset: 163736-76-9899PrmiamgwQhlkkpfg codes; unclassified (20 sources)Insomnia; Translations: [Insomnia, unspecified]Onset: 09-17-2023 82-32-9788GwwomusvAmitffix codes; unclassified (20 sources)Tobacco user; Translations: [Tobacco use]Onset: 09-17-2023 Resolved: 770906-41-4458SoarqubuLikopclh codes; unclassified (20 sources)Edema of lower extremity; Translations: [Localized edema]Onset: 09-17-2023 Resolved: 505190-71-6575FwnrkfitBmop and subcutaneous tissue infections (20 sources)Cellulitis of right lower limb; Translations: [Cutaneous abscess of left axilla]Onset: 09-85-9296NqqlytxxVnnsfihrrpv; intervertebral disc disorders; other back problems (20 sources)Lumbar radiculopathy; Translations: [Radiculopathy, lumbar region] Onset: 158679-80-0577ZepckejuTaiojdy and strains (1 source)Strain of muscle, fascia and tendon of lower back, initial encounter; Translations: [STRAIN MUSC FASC TENDON LW BACK INT]Onset: 37-73-7219Scwsnzls Unclassified (1 source)CONTACT W/AND (SUSP) EXPOS COVID-19; Translations: [CONTACT W/AND (SUSP) EXPOS COVID-19]Onset: 42-96-9152Bokfqtrbcpiy (1 source)LOW BACK PAIN, UNSPECIFIED; Translations: [LOW BACK PAIN, UNSPECIFIED] Onset: 69-25-9914Owzxorvvthft (4 sources)Patient encounter eyaljl90-42-0822Dvcrgspcomgj (1 source)Obesity, class 3; Translations: [Obesity, class 3]Onset: 08-08-2024 Varicose veins of lower extremity (20 sources)Varicose veins of right lower extremity with ulcer of unspecified site; Translations: [Varicose veins of lower extremities with ulcer]Onset: 06-19-2024 Resolved: 643196-06-4165Jcrkzhyj Results Test NameValueInterpretationReference RangeFacility.eGFRon 15-62-3602HIG/1.73 sq M.predicted MDRD (S/P/Bld) [Vol rate/Area]mL/min/{1.73_m2}Normal>=60BlSelect Medical Specialty Hospital - TrumbullComment on above:Result Comment: [facility] have implemented the eGFR calculation approach that does not havea coefficient for race and that conforms to the NKF-ASN Task Force Recommendations. Stages of Chronic Kidney Disease GFR Stage 1 Normal to mild loss of kidney function ? 90 Stage 2 Mild loss of kidney function 60 - 89 Stage 3a Mild to moderate loss of kidney function 45 - 59 Stage 3b Moderate to severe loss of kidney function 30 - 45 Stage 4 Severe loss of kidney function 15 - 29 Stage 5 Kidney failure < 15 GFR calculated using the CKD-Epi Creatinine Equation (2020): eGFR = 142 X min(SCr/?, 1)? X max(SCr /?, 1)-1.200 X 0.9938Age X 1.012 [if female] Abbreviations/Units: eGFR (estimated glomerular filtration rate) = mL/min/1.73 m2 SCr (standardized serum creatinine) = mg/dL ? = 0.7 (females) or 0.9 (males) ? = -0.241 (females) or -0.302 (males) min = indicates the minimum of SCr/? or 1 max = indicates the maximum of SCr/? or 1 Age = yearsPerformed By: #### EGFR #### [address] [address]PET w/ Diffon 86-15-2358Xgoqhebpwsw distribution width (RBC) [Ratio]20.0 %High11.6-14.8BMercy Health Fairfield HospitalComment on above: Performed By: #### CBC #### [address] [address]Ronvbfulvn (Bld) [Volume fraction]53.8 %High36.0-46.0[facility] CenterComment on above:Performed By: #### CBC #### [address] [address]Bonweleboq (Bld) [Mass/Vol]17.7 g/pLKfti94.0-16.0St. [facility] CenterComment on above:Performed By: #### CBC #### [address] [address]RUF (RBC) [Entitic mass]27.1 jvWrrghc63.0-35.0St. [facility] CenterComment on above:Performed By: #### CBC #### [address] [address]SESP96.9 %Ztrlob01.0-37.0[facility] CenterComment on above:Performed By: #### CBC #### [address] [address]XRA (RBC) [Entitic vol]82.2 tIAfwxis00.0-100.0[facility] CenterComment on above:Performed By: #### CBC #### [address] [address]Xwtlpzwp398 x10*3/vqWFks354-367TkdzjqcfgSt. Mary'S Medical Center Comment on above:Performed By: #### CBC #### [address] [address]Yrwnuvdk mean volume (Bld) [Entitic vol]10.4 fLNormal6.7-10.6 [facility] CenterComment on above:Performed By: #### CBC #### [address] [address]GLE8.54 x10*6/mcLHigh3.80-5.20[facility] Comment on above:Performed By: #### CBC #### [address] [address]UFR50.6 x10*3/mcLHigh4.5-11.0[facility] Comment on above:Performed By: #### CBC #### [address] [address]QCKzv 90-13-9784GUU [Mass/Vol]35.5 mg/LHigh0.0-9.9BMercy Health Fairfield HospitalComment on above:Result Comment: For normal applications of CRP: 10 - 50 mg/L indicates mild inflammation 50 - 100 mg/L indicates more severe inflammation >100 mg/L indicates serious processeses and frequently indicates the presence of a bacterial infection CRP measurement is useful for assessment of non-specific INFLAMMATORY RESPONSE to infection or injury AND is a sensitive marker of ACUTE INFLAMMATION including CARDIAC RISK ASSESSMENT. CARDIAC patients with elevated CRP are POTENTIALLY at a HIGHER RISK of FUTURE CARDIAC EVENTS.Performed By: #### CRP #### [address] [address]Hxee Autoon 63-59-1326Idqz Absolute0.1 x10*3/mcLNormal0.0-0.2 [facility] CenterComment on above:Performed By: #### .Automated Diff #### [address] [address]Fluhjhhxr/100 WBC (Bld)0.5 %Normal0.0-1.5BMercy Health Fairfield HospitalComment on above:Performed By: #### .Automated Diff #### [address] [address]Tmx Absolute0.3 x10*3/mcLNormal0.0-0.4BAshtabula County Medical Center SystemComment on above:Performed By: #### .Automated Diff #### [address] [address]Qmzmjihrmlk/100 WBC (Bld)2.3 %Normal0.0-5.4BMercy Health Fairfield HospitalComment on above:Performed By: #### .Automated Diff #### [address] [address]Sjoqt Absolute2.8 x10*3/mcLNormal1.0-4.8BMercy Health Fairfield HospitalComment on above:Performed By: #### .Automated Diff #### [address] [address]Mzqdpwzepvh/100 WBC (Bld)22.5 %Low27.2-40.8BMercy Health Fairfield HospitalComment on above:Performed By: #### .Automated Diff #### [address] [address]Mvlu Absolute0.6 x10*3/mcLNormal0.1-1.1BMercy Health Fairfield HospitalComment on above:Performed By: #### .Automated Diff #### [address] [address]Yskdzrhvc/100 WBC (Bld)5.1 %Normal3.7-11.9BMercy Health Fairfield HospitalComment on above:Performed By: #### .Automated Diff #### [address] [address]Nxiqic Absolute8.8 x10*3/mcLHigh1.8-7.7BMercy Health Fairfield HospitalComment on above:Performed By: #### .Automated Diff #### [address] [address]Dpnlaw Auto69.6 %Dganxs42.2-70.8BMercy Health [facility] Comment on above:Performed By: #### .Automated Diff #### [address] [address]PQQfh 74-05-3539Hgu Rate12 mm/hrNormal0-30St. [facility]S Medical CenterComment on above:Performed By: #### ESR #### [address] [address]Copfydhn Office/Clinic Noteon 88-86-9086Jsqrdjzr Office/Clinic NoteThe content of this note was [...] purpose is solely to facilitate the conversation. Missing Attachment [id number] Can be viewed in source system The [...] a 54-year-old female with a history of chronic bilateral leg ulcers, presenting for follow-up of right foot ulcer. Chronic Leg Ulcers and Wound Care The patient reports a history of chronic leg ulcers for over a year, with intermittent healing and recurrence. She notes that the wounds are currently improving, with significant healing compared to prior visits. She reports that the wounds come and go. The right leg ulcer now measures 8x7 cm, and the left posterior leg ulcer measures 1.5x2x0.2 cm. About three months ago, the wounds had decreasedin size but subsequently worsened. She is currently using Coban II wraps and is unable to obtain certain wound care products through home health. She uses Triad paste mixed with another product, which she describes as a 'miracle cream.' She is not currently changing bandages at home, but previously changed them every other day. Dressing changes are performed two to three times per week. She applies prescription lotion to the wounds. She takes [place] for pain and daily baby aspirin. She smokes and is on disability, and does not require [facility] paperwork. She reports recent blood flow studies and evaluations by Dr. Alatorre and Dr. Broderick. Review of Systems Skin: Positive for leg ulcerations. Positive for dry skin on leg. Negative for infection. Negative for bleeding. 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) Peripheral vascular disease (I73.9) Skin ulcer of left lower leg with fat layer exposed (L97.922) Skin ulcer of right lower leg with fat layer exposed (L97.912) Smoker (F17.200) Venous insufficiency (I87.2) Venous stasis (I87.8) Physical Exam Vitals & Measurements HR: 81 (Peripheral) BP: 117/75 Extremities: Right leg ulceration measuring 8 cm x 7 cm Left posterior leg ulceration measuring 1.5 cm x 2 cm x 0.2 cm Ulcers with evidence of healing and improved skin appearance Ulcers described as dry Integumentary: Ulcerations on bilateral lower extremities with evidence of healing and improved skin appearance Ulcers described as dry Neurological: Sensation present in legs Dermatological: Right left posterior lower leg ulceration noted lateral lower leg ulceration noted. Surrounding skin of ulceration has hyperkeratotic tissue forming with some undermining at the edge of the ulceration. Fibrogranular nature. Bilateral, all pedal nails thick and incurvated with subungual debris discolored dystrophic and crumbly. Negative probe to bone. Negative malodor Negative purulence Negative calor Negative erythema Dorsal right foot prior dermal tissue is resolved and no open wounds lesions or ulceration noted tothe right dorsal foot at this time Skin is diffusely taut brawny indurated atrophic [...] in either lower extremity. Orthopedic: Bony foot structur (more content not included)...[facility] HospitalComment on above:Order Comment: Missing Attachment [id number] Can be viewed in source systemMissing Attachment [id number] Can be viewed in source system Provider Letteron 28-86-1793Hdsedfqr Letter Mckayla Blas, MANAGER OF ENGINEERING-GENERAL EDUCATION PROFESSOR [address] [place] [address] Re: Mitzi Macias Date of Visit: 05/18/2025 Dear Mckayla Blas APRN-SAYDA, [facility] Orthopedics and Sports Medicine [address] [place] [address], [phone] Date: 05/18/2025 12:46:10 Please see attached progress/office note regarding mutual patient, Mitzi Macias who was seen on04/29/2025 14:16:18. Please see attached note for further details and please call with any questions or concerns. Sincerely, KANDI Sampson Providers: The following document(s) were included in the letter: May 18, 2025 12:43:05 EST - (05/18/2025) Office Visit Note CAANormal St. [facility]S Medical CenterRenal Panelon 86-70-0235Oykzklb [Mass/Vol]3.5 g/dL Low3.7-5.3BMercy Health Fairfield HospitalComment on above:Performed By: #### RENAL #### [address] [address]Yncbd gap [Moles/Vol]6 mmol/LNormal4-12St. [facility]S Medical CenterComment on above:Performed By: #### RENAL #### [address] [address]BVA Crea Ratio25.0 idpjfIfjwxi75.0-25.0St. [facility]'S Medical CenterComment on above:Performed By: #### RENAL #### [address] [address]Qkcslur [Mass/Vol]9.0 mg/dLNormal8.6-10.3BMercy Health Fairfield HospitalComment on above:Performed By: #### RENAL #### [address] [address]Nmmsbmux [Moles/Vol]105 mmol/UMqivql43-328GnrvdiwpdSt. Mary'S Medical CenterComment on above:Performed By: #### RENAL #### [address] [address]HZ3 [Moles/Vol]30 mmol/KKgmdot79-84AnpeaxahmSt. Mary'S Medical CenterComment on above:Performed By: #### RENAL #### [address] [address]Iylccgpsku [Mass/Vol]0.80 mg/dLNormal0.60-1.20St. [facility]S Medical CenterComment on above:Performed By: #### RENAL #### [address] [address]Rpnnfrn [Mass/Vol]137 mg/nPSiug58-01MfalghnblSt. Mary'S Medical CenterComment on above:Performed By: #### RENAL #### [address] [address]Xmhqfvgos [Mass/Vol]3.6 mg/dLNormal2.5-4.6BMercy Health Fairfield HospitalComment on above:Performed By: #### RENAL #### [address] [address]Fuhjrxmdm [Moles/Vol]4.5 mmol/LNormal3.4-4.8BMercy Health Fairfield HospitalComment on above:Performed By: #### RENAL #### [address] [address]Xeumrb [Moles/Vol]141 mmol/LYabwia600-624BiwwzerbjSt. Mary'S Medical CenterComment on above:Performed By: #### RENAL #### [address] [address]Soxp nitrogen [Mass/Vol]20 mg/dLNormal7-25St. Mary'S Medical CenterComment on above:Performed By: #### RENAL #### [address] [address]Zqiipkjxnoz 40-47-5219MwgcoxswoAqowcanfz From: Maria Elena Negrete To: EU - [...] ) Other: PROVIDER RELATED REMINDER:_ ( ) Retail Gift Card Merchandising ( ) Call Pharmacy ( ) Call Lab ( ) Other: Special Instructions:_ Comments:_ From: Raquel Tidwell (EU - Recalls Arauz) To: EU - Recalls Arauz; Sent: 06/12/2024 15:41:24 EST Show up: 04/08/2025 15:41:00 EDT Subject: RE: Sched [address] Tried to reach Pt to schedule f/u and CT. Voicemail box was full and I was unable to leave a message at this time.[facility] HospitalVascular Office/Clinic Noteon 35-32-6979Pbccauqr Office/Clinic NoteChief Complaint Leg ulcer History of Present Illness Mitzi was referred by her coremaking supervisor for evaluation of PVD. She has had ulcers in the bilateral lower extremities above the ankle for about a year. She has been seen by wound care in [facility]. They are applying compression with medicated [...] signed by Corinne Kellogg MD 04/23/25 11:56 TCleveland Clinic Marymount Hospital VL Ankle Brachial Indiceson 68-15-9875AG Ankle Brachial IndicesPreliminary Technologist Report Ankle/brachial index study was performed. Please see below for information. Community Living Specialist: Zayra Ag, RVS Radiologist Report BILATERAL [...] please contact our Vascular Rehabilitation Department at [phone]. Final Signed by: Jose F Casanova MD Signed (Electronic Signature): 04.17.2025 3:28 pm Transcribed by: Jose F Casanova MD Transcribed DT/TM: 04.17.2025 3:12 (If Report is Signed, Electronically Signed in Other Vendor System)Normal St. [facility]S Medical CenterBasophils Auto (Bld) [#/Vol]Ordered By: Flynn Urias on 24-98-6412Wndrkzwwq (Bld) [#/Vol]0.1 10 3/uL0.0-0.1FOhioHealth Southeastern Medical CenterBasophils/100 WBC Auto (Bld)Ordered By: Flynn Urias on 05-16-2257Mrfcbbcuw/100 WBC (Bld)0.6 %0.2-2.0[facility] Eosinophils/100 WBC Auto (Bld)Ordered By: Flynn Urias on 03-26-2025 Eosinophils/100 WBC (Bld)2.7 %0.9-7.0[facility] Erythrocyte distribution width Auto (RBC) [Ratio]Ordered By: Flynn Urias on 95-69-8632Tnqvifkehmb distribution width (RBC) [Ratio]16.4 %High11.0-15.0 [facility] HospitalGlomerular filtration rate (GFR) estimation in non- AmericanOrdered By: Flynn Urias on 45-72-3898PIT/1.73 sq M.predicted among non-blacks MDRD (S/P/Bld) [Vol rate/Area]mL/min/{1.73_m2}>=60 mL/min/1.73m 2FOhioHealth Southeastern Medical CenterHematocrit Auto (Bld) [Volume fraction]Ordered By: Flynn Urias on 59-76-2943Dzoxdkasge (Bld) [Volume fraction]52.5 %High36.0-48.0[facility] HospitalHemoglobin [Mass/volume] in BloodOrdered By: Flynn Urias on 57-57-3298Vzyoghuqvs (Bld) [Mass/Vol]16.1 g/wFRqix39.0-16.0[facility] HospitalLaboratory - Chemistry and Chemistry - challengeOrdered By: Flynn Urias on 03-26-2025 Albumin [Mass/Vol]2.8 g/dLLow3.4-5.0[facility] HospitalCalcium [Mass/Vol]8.6 mg/dL8.5-10.1FOhioHealth Southeastern Medical CenterChloride [Moles/Vol] 105 mmol/D66-730AafsabyywPeoples HospitalCO2 [Moles/Vol]31.5 mmol/L 21.0-32.0[facility] HospitalCreatinine [Mass/Vol]0.69 mg/dL 0.55-1.02[facility] HospitalGFR/1.73 sq M.predicted MDRD (S/P/Bld) [Vol rate/Area]mL/min/{1.73_m2}>=60 mL/min/1.73m 2FOhioHealth Southeastern Medical CenterGlucose [Mass/Vol]147 mg/aMQyzh11-836VlviydqfjPeoples Hospital Potassium [Moles/Vol]4.2 mmol/L3.5-5.1FThe MetroHealth Systemodium [Moles/Vol]141 mmol/P037-539IznbzawdmPeoples HospitalUrea nitrogen [Mass/Vol]15.0 mg/dL7.0-18.0[facility] HospitalUrea nitrogen/Creatinine [Mass ratio]21.7 mg/mgPeoples Hospital Laboratory - Hematology and Cell countsOrdered By: Flynn Urias on 03-26-2025 ESR (Bld) [Velocity]48 mm/hHigh<=30Pe[facility] HospitalImmature granulocytes/100 WBC (Bld)0.3 %0.0-0.5FOhioHealth Southeastern Medical Center Leukocytes [#/volume] corrected for nucleated erythrocytes in Blood by Automated counOrdered By: Flynn Urias on 85-85-7142QEP corrected for nucl RBC Auto (Bld) [#/Vol]10.0 10 3/uL4.0-11.0[facility] HospitalLymphocytes Auto (Bld) [#/Vol]Ordered By: Flynn Urias on 99-63-7175Awnitvmzsgh (Bld) [#/Vol]2.7 10 3/uL1.2-3.8[facility] HospitalLymphocytes/100 WBC Auto (Bld)Ordered By: Flynn Urias on 60-15-3640Cgafgsjrhkg/100 WBC (Bld)27.2 % 20.5-60.0[facility] Auto (RBC) [Entitic mass]Ordered By: Flynn Urias on 71-07-6777ZOQ (RBC) [Entitic mass]27.2 pg26.7-34.0[facility] SouthHC Auto (RBC) [Mass/Vol]Ordered By: Flynn Urias on 06-20-0863SSFP (RBC) [Mass/Vol]30.7 g/dL29.9-35.2FOhioHealth Southeastern Medical CenterMCV Auto (RBC) [Entitic vol]Ordered By: Flynn Urias on 18-85-3955OHK (RBC) [Entitic vol]88.7 fL81.0-99.0[facility] HospitalMonocytes Auto (Bld) [#/Vol]Ordered By: Flynn Urias on 03-28-5862Vfyxepzjd (Bld) [#/Vol] 0.5 10 3/uL0.3-0.8[facility] HospitalMonocytes/100 WBC Auto (Bld) Ordered By: Flynn Urias on 02-76-1685Mrfbloalg/100 WBC (Bld)5.2 %1.7-12.0 [facility] HospitalNeutrophils Auto (Bld) [#/Vol]Ordered By: Flynn Urias on 46-97-8235Pifsgkouwor (Bld) [#/Vol]6.4 10 3/uL1.4-6.5FOhioHealth Southeastern Medical CenterNeutrophils/100 WBC Auto (Bld)Ordered By: Flynn Urias on 38-20-0752Xxnaxfasgyc/100 WBC (Bld)64.0 %43.0-75.0[facility] HospitalNo Panel InformationOrdered By: Flynn Urias on 13-41-5295Y-Reactive Protein, Quantitative3.94 mg/dLHigh<=0.50[facility] Eosinophils # (Auto)0.3 10 3/uL0.0-0.7FOhioHealth Southeastern Medical CenterImmature Granulocyte # (Auto)0.03 10 3/uL0.00-0.03[facility] Phosphorus Level3.5 mg/dL2.6-4.7FOhioHealth Southeastern Medical CenterPlatelet mean volume Auto (Bld) [Entitic vol]Ordered By: Flynn Urias on 77-22-6873Rgzlrwij mean volume (Bld) [Entitic vol]12.8 fL9.5-13.5FOhioHealth Southeastern Medical Center Platelets Auto (Bld) [#/Vol]Ordered By: Flynn Urias on 12-63-1677Ylicfrfdr (Bld) [#/Vol]146 10 3/iBZpp014-014AsufefikrPeoples HospitalRBC Auto (Bld) [#/Vol]Ordered By: Flynn Urias on 54-26-6435XWQ (Bld) [#/Vol]5.92 10 6/uLHigh4.20-5.40[facility] Samaritan Hospitalerum or plasma anion gap determinationOrdered By: Flynn Urias on 10-61-1065Qzshq gap [Moles/Vol]8.7 mmol/LFOhioHealth Southeastern Medical CenterBasophils Auto (Bld) [#/Vol]Ordered By: Price Arora on 59-30-0424Wbdxhcltc (Bld) [#/Vol]0.1 10 3/uL0.0-0.1FOhioHealth Southeastern Medical CenterBasophils/100 WBC Auto (Bld)Ordered By: Price Arora on 27-25-4273Fycowlepb/100 WBC (Bld)0.4 %0.2-2.0[facility] Eosinophils/100 WBC Auto (Bld)Ordered By: Price Arora on 03-25-2025 Eosinophils/100 WBC (Bld)2.4 %0.9-7.0[facility] Erythrocyte distribution width Auto (RBC) [Ratio]Ordered By: Price Arora on 72-42-7603Uaiyxhtznuc distribution width (RBC) [Ratio]16.4 %High11.0-15.0 [facility] HospitalGlomerular filtration rate (GFR) estimation in non- AmericanOrdered By: Price Arora on 43-44-1001NMX/1.73 sq M.predicted among non-blacks MDRD (S/P/Bld) [Vol rate/Area]mL/min/{1.73_m2}>=60 mL/min/1.73m 2FOhioHealth Southeastern Medical CenterHematocrit Auto (Bld) [Volume fraction]Ordered By: Price Arora on 60-86-7382Fgqgbvnior (Bld) [Volume fraction]56.6 %High36.0-48.0[facility] HospitalHemoglobin [Mass/volume] in BloodOrdered By: Price Arora on 87-68-3044Petgkoknmw (Bld) [Mass/Vol]17.4 g/dRZdta94.0-16.0[facility] HospitalLaboratory - Chemistry and Chemistry - challengeOrdered By: Price Arora on 03-25-2025 Bilirubin Ql (U)NegativeNEGATIVEPeoples HospitalGlucose (U) [Mass/Vol]NegativeNEGATIVEPeoples HospitalKetones Ql (U) NegativeNEGATIVEPeoples HospitalpH (U)8.0 [pH]5.0-9.0[facility]itan Hospitalpecific gravity (U) [Rel density]1.0201.005-1.025 [facility] HospitalUrobilinogen Qn (U)1.0 {Little'U}/dL0.2-1.0 [facility] HospitalCalcium [Mass/Vol]9.2 mg/dL8.5-10.1FOhioHealth Southeastern Medical CenterChloride [Moles/Vol]106 mmol/V81-941DcjblazanPeoples HospitalCO2 [Moles/Vol]36.9 mmol/LHigh21.0-32.0[facility] HospitalCreatinine [Mass/Vol]0.86 mg/dL0.55-1.02[facility] GFR/1.73 sq M.predicted MDRD (S/P/Bld) [Vol rate/Area]mL/min/{1.73_m2}>=60 mL/min/1.73m 2FOhioHealth Southeastern Medical CenterGlucose [Mass/Vol]164 mg/dLHigh 74-106Pe[facility] HospitalPotassium [Moles/Vol]4.0 mmol/L3.5-5.1 [facility]itan Hospitalodium [Moles/Vol]144 mmol/A552-825CmlxdlqygPeoples HospitalUrea nitrogen [Mass/Vol]14.0 mg/dL7.0-18.0[facility] HospitalUrea nitrogen/Creatinine [Mass ratio]16.3 mg/mgPeoples HospitalLaboratory - Hematology and Cell countsOrdered By: Price Arora on 92-45-1086Uvsvyhvc granulocytes/100 WBC (Bld)0.3 %0.0-0.5 [facility] HospitalLaboratory - Specimen informationOrdered By: Price Arora on 75-27-2160Ojycvatdac (U)CLEARCLEARFOhioHealth Southeastern Medical CenterColor (U)LT. YELLOWYELLOWPeoples HospitalLaboratory - UrinalysisOrdered By: Price Arora on 69-45-9177Zetjjhb casts LM Ql (Urine sed) RAREPeoples HospitalLeukocyte esterase Test strip Ql (U) NegativeNEGATIVEPeoples HospitalMucus Ql (Urine sed)TRACE AbnormalNONE SEENPeoples HospitalNitrite Ql (U)NegativeNEGATIVE [facility] HospitalProtein Ql (U)100 mg/dLAbnormalNEG/TRACE [facility] HospitalLeukocytes [#/volume] corrected for nucleated erythrocytes in Blood by Automated counOrdered By: Price Arora on 03-25-2025 WBC corrected for nucl RBC Auto (Bld) [#/Vol]11.8 10 3/uLHigh4.0-11.0[facility] HospitalLymphocytes Auto (Bld) [#/Vol]Ordered By: Price Arora on 29-98-2825Trcpwlhthmf (Bld) [#/Vol]3.1 10 3/uL1.2-3.8[facility] HospitalLymphocytes/100 WBC Auto (Bld)Ordered By: Price Arora on 34-66-0025Nhqmhnbrjgc/100 WBC (Bld)26.4 %20.5-60.0[facility] Auto (RBC) [Entitic mass]Ordered By: Price Arora on 26-97-1855VDQ (RBC) [Entitic mass]27.5 pg26.7-34.0[facility] SouthHC Auto (RBC) [Mass/Vol]Ordered By: Price Arora on 34-92-1208PFFC (RBC) [Mass/Vol]30.7 g/dL29.9-35.2FOhioHealth Southeastern Medical CenterMCV Auto (RBC) [Entitic vol] Ordered By: Price Arora on 84-82-4603FTU (RBC) [Entitic vol]89.4 fL81.0-99.0 [facility] HospitalMonocytes Auto (Bld) [#/Vol]Ordered By: Price Arora on 50-12-8800Vyuqrjgka (Bld) [#/Vol]0.6 10 3/uL0.3-0.8[facility] HospitalMonocytes/100 WBC Auto (Bld)Ordered By: Price Arora on 53-18-7319Kwyqklwzb/100 WBC (Bld)5.2 %1.7-12.0[facility] Neutrophils Auto (Bld) [#/Vol]Ordered By: Price Arora on 30-72-3539Ftpmhnzedzl (Bld) [#/Vol]7.7 10 3/uLHigh1.4-6.5FOhioHealth Southeastern Medical Center Neutrophils/100 WBC Auto (Bld)Ordered By: Price Arora on 03-25-2025 Neutrophils/100 WBC (Bld)65.3 %43.0-75.0[facility] HospitalNo Panel InformationOrdered By: Price Arora on 31-68-5560Cfowu BacteriaTRACE #/HPFAbnormalNONE SEENPeoples HospitalUrine Culture ReflexedProvidence HospitalUrine Occult BloodNegativeNEGATIVEPeoples HospitalUrine Other CastsSEEN #/LPFAbnormalNONE [facility] HospitalUrine Other CrystalsNone Seen #/HPFNone [facility] Medical CenterUrine RBC0-2 #/HPF0-2FOhioHealth Southeastern Medical Center Urine Squamous Epithelial CellsFEW #/LPFAbnormalNONE/RAREPeoples HospitalUrine WBC0-2 #/HPFAbnormalNONE [facility] HospitalEosinophils # (Auto)0.3 10 3/uL0.0-0.7FOhioHealth Southeastern Medical Center Immature Granulocyte # (Auto)0.04 10 3/uLHigh0.00-0.03[facility] HospitalPlatelet mean volume Auto (Bld) [Entitic vol]Ordered By: Price Arora on 83-20-0577Mwxdirhr mean volume (Bld) [Entitic vol]12.4 fL9.5-13.5FOhioHealth Southeastern Medical CenterPlatelets Auto (Bld) [#/Vol]Ordered By: Price Arora on 67-78-4236Bmnmmaulr (Bld) [#/Vol]160 10 3/kP889-137CmtxemzqbPeoples HospitalRBC Auto (Bld) [#/Vol]Ordered By: Priceoh Arora on 89-30-2789DKE (Bld) [#/Vol]6.33 10 6/uLHigh4.20-5.40[facility] Hospitalerum or plasma anion gap determinationOrdered By: Price Arora on 91-95-4503Zklig gap [Moles/Vol]5.1 mmol/LFOhioHealth Southeastern Medical CenterVascular Office/Clinic Noteon 69-46-5798Bezcndoi Office/Clinic NoteChief Complaint lle wound History of [...] She has had testing done at the [facility] last year which she brought with [...] Electronically signed by Omero Santana 03/23/25 12:01 [facility] CenterPodiatry Office/Clinic Noteon 21-32-6936Hpveausr Office/Clinic NoteThe content of this note was generated by an [employer] (AI) language dictation. The patient or guardian [...] of this note was generated by an [employer] (AI) language dictation. The patient or guardian [...] of this note was generated by an [employer] intelligence (AI) language dictation. The patient or [...] wraps (gauze, tila bandage, Coban II, tuba cds sales advisor), Dakins solution, a 40-daycourse of antibiotics, and [...] other blood thinners. The patient resides in [place]. Review of Systems Constitutional: Negative for signs [...] their lower extremities Positi (more content not included)...[facility] HospitalComment on above:Order Comment: Missing Attachment [id number] Can be viewed in source systemXR Tibia/Fibula Righton 73-48-6632CO Tibia/Fibula Right2 views right tib- fib demonstrate: [...] Is Signed, Electronically Signed in Other Vendor System)[facility] SystemResults Follow-Upon 48-79-1221Jztyztu Follow-Up [id number] Mitzi Macias 1970 F Date Provider Department Center 02/04/2025 Mikaela-AMI ORO CARDIOLOGY None Family History Problem Relation Age of Onset Heart attack Paternal Grandmother Family Status - Relation Status Age at Mother Father Paternal GrandmotherNCleveland Clinic South Pointe HospitalOrders Onlyon 16-25-3410Ywwlsy [id number] Mitzi Macias 1970 F Date Provider Department Center 01/30/2025 [id number], HISTORICAL [facility] Family History Problem Relation Age of Onset Heart attack Paternal Grandmother Family Status - Relation Status Age at Mother Father Paternal GrandmotherNCleveland Clinic South Pointe HospitalCA ECHO DOPPLER COMPLETEon 24-13-3825DzrGr[place] [address] Cardiology Report Signed Patient: MITZI MACIAS MR#: [id number] : 1970 Acct:[id number] Age/Sex: 54 / F ADM Date: 01/29/25 Loc: CARD Attending Dr: AMI ORO APRN Ordering Physician: AMI ORO APRN Date of Service: 01/29/25 Procedure(s): CA echo doppler complete Accession Number(s): [id number] cc: Mckayla Blas CUPOLA CHARGER; AMI ORO APRN Patient Name: MITZI MACIAS MR#: [id number] : 1970 Exam Date: 01/29/2025 Ordering Doctor: AMI ORO GENERAL EDUCATION PROFESSOR ECHOCARDIOGRAM REPORT PROCEDURE: CA ECHO DOPPLER COMPLETE [...] HERRERA Signed By: 01/29/251839 DD/ 39 TD/TT: Deckhand Sponge Boat:TBHRadiology, Radiologist, - 01/29/20[address] [place] [address] Cardiology Report Signed Patient: MITZI MACIAS MR#: [id number] : 1970 Acct:[id number] Age/Sex: 54 / F ADM Date: 01/29/25 Loc: CARD Attending Dr: AMI ORO APRN Ordering Physician: AMI ORO APRN Date of Service: 01/29/25 Procedure(s): CA echo doppler complete Accession Number(s): [id number] cc: Mckayla Blas CUPOLA CHARGER; AMI ORO APRN Patient Name: MITZI MACIAS MR#: [id number] : 1970 Exam Date: 01/29/2025 Ordering Doctor: [...] HERRERA Signed By: 01/29/251839 DD/ 39 TD/TT: Deckhand Sponge Boat: [facility] Cancer CenterRadiology Study observation (narrative)[facility] ECHO DOPPLER COMPLETEOrdered By: Radiologist Radiology on 82-07-0525PPYFAlvin J. Siteman Cancer Center Work Phone: Glucose (Bld) [Mass/Vol]on 71-07-6034Xjoxdqr Blood, LLO702 mg/dLAlvin J. Siteman Cancer CenterLaboratory - Hematology and Cell countson 01-29-2025 HbA1c (Bld) [Mass fraction]8.4 %[facility]iteman Cancer CenterNo Panel Informationon 01-29-2025 Interpretation and review of laboratory resultsAbnormalSaint John's Health System HealthcareOffice Visiton 58-03-0216Pxeaaj-up [id number] Mtizi Macias 1970 F Date Provider Department Center 01/06/2025 Mikaela-AMI ORO Wilfredo Rojas Family History Problem Relation Age of Onset Heart attack Paternal Grandmother Family Status - Relation Status Age at Mother Father Paternal Grandmother Level of Service:[address] [place] OFFICE/OUTPATIENT ESTABLISHED MOD MDM 30 MIN Reason for Visit and Comments: Congestive Heart Failure [127] Hypertension [109483] Hyperlipidemia [182]NormalOhioHealth Nelsonville Health Center36on Regarding lab results from 10/08/2024: MD Mickie Merritt MA Lipids, ALT AST, and BMP are normal. HbA1c was not performed. Continue current management. LM on patient's VM.NormalOhioHealth Nelsonville Health CenterGlucose (Bld) [Mass/Vol]Ordered By: Mica Sauceda on 82-07-0300Grbhztf Blood, POC97 mg/dLNOLA HealthcareLaboratory - Hematology and Cell countson 85-36-6164SjZ2e (Bld) [Mass fraction]7.4 %NOMS HealthcareNo Panel InformationOrdered By: Mica Sauceda on 37-19-3502VNCG HealthcareTBH UA (CLEAN/CATCH) MICROSCOPIC IF INDICATEon 28-42-0806IAAUREJLS URINENegativeNEGATIVENOMS HealthcareBLOOD URINENegative NEGATIVENOMS HealthcareClarity (U)CLEARCLEARNOMS HealthcareColor (U)YELLOWYELLOW NOMS HealthcareGLUCOSE URINE UANegativeNEGATIVE mg/dLNOMS Healthcare Interpretation and review of laboratory resultsAbnormalNOMS HealthcareKetones Ql (U)NegativeNEGATIVE mg/dLNOMS HealthcareLeukocyte esterase Test strip Ql (U) NegativeNEGATIVENOMS HealthcareNITRITE URINENegativeNEGATIVENOMS HealthcarepH (U)5.5 [pH]5.0 - 9.0NOMS HealthcareProtein (U) [Mass/Vol]30 mg/dLAbnormal NEG/TRACENOMS HealthcareSPECIFIC GRAVITY URINE>=1.941Dqgqwcrp3.005 - 1.025NOMS HealthcareURINE MICROSCOPIC INDICATEDYESNOMS HealthcareUROBILINOGEN URINE1.0 EU/dL0.2 - 1.0 EU/dLNOMS HealthcareCLINISYNFITCHBURG GENERAL HOSPITAL HealthcareALL CBC WITH AUTO DIFFon 45-85-4505IGTLXWSZH ABSOLUTE AUTO0.1NOMS HealthcareBasophils/100 WBC (Bld)0.5 %0.2 - 2.0 %NOMS HealthcareEosinophils/100 WBC (Bld)1.9 %0.9 - 7.0 % NOMS HealthcareErythrocyte distribution width (RBC) [Ratio]14.6 %11.0 - 15.0 % NOMS HealthcareHematocrit (Bld) [Volume fraction]50.9 %High36.0 - 48.0 %NOMS HealthcareHemoglobin (Bld) [Mass/Vol]16.1 g/wAJdfs81.0 - 16.0 g/dLNOLA HealthcareIMMATURE GRANULOCYTES ABS AUTO0.04HighNOLA HealthcareImmature granulocytes/100 WBC (Bld)0.3 %0.0 - 0.5 %NOMS HealthcareInterpretation and review of laboratory resultsAbnormalNOLA HealthcareLYMPHOCYTES ABSOLUTE AUTO3.2 NOMS HealthcareLymphocytes/100 WBC (Bld)25.1 %20.5 - 60.0 %NOMChildren'S Mercy HospitalMCH (RBC) [Entitic mass]29.2 pg26.7 - 34.0 pgNOHedrick Medical CenterMCHC (RBC) [Mass/Vol] 31.6 g/dL29.9 - 35.2 g/dLAlvin J. Siteman Cancer CenterMCV (RBC) [Entitic vol]92.2 fL81.0 - 99.0 fLNOLA HealthcareMONOCYTES ABSOLUTE AUTO0.7NOLA HealthcareMonocytes/100 WBC (Bld)5.2 %1.7 - 12.0 %NOMS HealthcareNEUTROPHILS ABSOLUTE AUTO8.6HighNOLA HealthcareNeutrophils/100 WBC (Bld)67 %43.0 - 75.0 %NOMS HealthcarePlatelet mean volume (Bld) [Entitic vol]12.8 fL9.5 - 13.5 fLNOHedrick Medical CenterTBH EO #0.2NOMS HealthcareTBH [id number] HealthcareTB RBC5.52HighNOMS HealthcareTBH WBC12.8 HighNOLA HealthcareCLINISYNCNVALIR REHABILITATION [facility] [place] HealthcareOffice Visiton 30-23-0478Cpqcin-up [id number] Mitzi Macias 1970 F Date Provider Department Center 08/08/2024 13312-UYYYTZ, SAMTROY [facility] Family History Problem Relation Age of Onset Heart attack Paternal Grandmother Family Status - Relation Status Age at Paternal Grandmother Level of Service:[address] [place] OFFICE/OUTPATIENT ESTABLISHED MOD MDM 30 MIN Reason for Visit and Comments: Congestive Heart Failure [127] - Denies chest pain, SOB, and palpitations. Hypertension [879169] Hyperlipidemia [182] LVH [Other] Edema [[id number]] - Denies worsening edema. She sees wound care for RLE ulcer. She was seeing the vein specialists here in town but they are moving to [place] in a few weeks.[facility] SystemProvider Letteron 73-72-2368Wfgdhqks LetterProvider Letter June 11, 2024 [address] [place] [id number] : 1970 To Whom It May Concern, Please excuse above patient from work. Date of Illness: From: 06/11/24 8:30am To: 06/11/24 12:30pm Comments: _Brian Macias was with his for her doctor's appointment. Sincerely, Andra Forrester, Surgical SchedulerNormParma Community General HospitalUrology Office/Clinic Noteon 46-09-3445Hahfalc Office/Clinic NoteUrology Office/Clinic Note Chief Complaint 18 mth HPI Staff 53 yo here 18 month f/u CT for adrenal mass. CT SCAN 05/12/24-[facility] Previous DX: adrenal mass, kidney stone, [...] URL [facility] [address], [place] [address]- Additional Instructions: [address] AP [...] potassium chloride 10 (more content not included)...[facility]tering Memorial HospitalComment on above:Result Comment: Electronically Signed By: Elbert ARAUZ MD\.br\Date and Time Signed: 06/11/24 10:55 EST\.br\Electronically Co- Signed By: Maria Elena Negrete\.br\Date and Time Co-Signed: 06/11/24 10:53 EST Glucose (Bld) [Mass/Vol]Ordered By: Mica Sauceda on 98-72-2560Qwcwmao Blood, DLC307 mg/dLNOMS HealthcareLaboratory - Hematology and Cell countson 05-27-2024 HbA1c (Bld) [Mass fraction]9.2 %NOMS HealthcareNo Panel InformationOrdered By: Mica Sauceda on 80-60-4344PEUN HealthcareCT ABDOMEN PELVIS W CONon 05-12-2024 [place] [address] CT Scan Report Signed Patient: MITZI MACIAS MR#: [id number] : 1970 Acct:[id number] Age/Sex: 53 / F ADM Date: 05/12/24 Loc: CT Attending Dr: Gaviota MAYERS Ordering Physician: Gaviota Adames Date of Service: 05/12/24 Procedure(s): CT abdomen pelvis w con Accession Number(s): [id number] cc: Mckayla Blas NP [place] [address] Patient Name: MITZI MACIAS MRN: [id number] date: 1970 Sex: F Assigned Patient Location: CT Current Patient Location: Accession/Order Number: [id number] Exam Date: 05/12/2024 11:15 Report Date: 05/12/2024 [...] Signed By: 05/12/24 1419 DD/ 1416 TD/TT: Deckhand Sponge Boat:SONNYHRadiology, Radiologist, - 05/12/2024 [place] [address] CT Scan Report Signed Patient: MITZI MACIAS MR#: [id number] : 1970 Acct:[id number] Age/Sex: 53 / F ADM Date: 05/12/24 Loc: CT Attending Dr: Gaviota MAYERS Ordering Physician: Gaviota Adames Date of Service: 05/12/24 Procedure(s): CT abdomen pelvis w con Accession Number(s): [id number] cc: Mckayla Blas NP [facility] [place] [id number] Patient Name: MITZI MACIAS MRN: TBH:[id number] date: 1970 Sex: F Assigned Patient Location: CT Current Patient Location: Accession/Order Number: [id number] Exam Date: 05/12/2024 11:15 Report Date: 05/12/2024 [...] Signed By: 05/12/24 1419 DD/ 15 TD/TT: Deckhand Sponge Boat: [facility]PITAL FOR WOMENHenna HealthcareRadiology Study observation (narrative)[facility] Cancer CenterCT ABDOMEN PELVIS W CONOrdered By: Radiologist Radiology on 01-70-8958CDQJAlvin J. Siteman Cancer Center Work Phone: LUMBAR SPINE WO CONon 05-47-9064KvrJ[place] [phone] Magnetic Resonance Report Signed Patient: MITZI MACIAS MR#: [id number] : 1970 Acct:[id number] Age/Sex: 53 / F ADM Date: 05/12/24 Loc: MRI Attending Dr: Angela Cochran NP Ordering Physician: Angela Cochran NP Date of Service: 05/12/24 Procedure(s): MR lumbar spine wo con Accession Number(s): [id number] cc: Mckayla Blas CUPOLA CHARGER; Angela Cochran NP [address] [address] Patient Name: MITZI MACIAS MRN: [id number] date: 1970 Sex: F Assigned Patient Location: MRI Current Patient Location: CT Accession/Order Number: [id number] Exam Date: 05/12/2024 09:21 Report Date: 05/12/2024 [...] Celestin M.D. Signed By: 05/12/24 1443 DD/ 144 TD/TT: Deckhand [employer]onge [employer]:TBHRadiology, Radiologist, MD - 05/12/2024 [place] [address] Magnetic Resonance Report Signed Patient: MITZI MACIAS MR#: [id number] : 1970 Acct:[id number] Age/Sex: 53 / F ADM Date: 05/12/24 Loc: MRI Attending Dr: Angela Cochran NP Ordering Physician: Angela Cochran NP Date of Service: 05/12/24 Procedure(s): MR lumbar spine wo con Accession Number(s): [id number] cc: Mckayla Blas NP; Angela Cochran NP [facility] [place] [phone] Patient Name: MITZI MACIAS MRN: TBH:[id number] date: 1970 Sex: F Assigned Patient Location: MRI Current Patient Location: CT Accession/Order Number: [id number] Exam Date: 05/12/2024 09:21 Report Date: 05/12/2024 [...] Dictated By: Maryanne Celestin M.D. Signed By: 05/12/241442 DD/ 40 TD/TT: Deckhand [employer]: CARLOS HealthcareRadiology Study observation (narrative)[facility] LUMBAR SPINE WO CONOrdered By: Radiologist Radiology on 07-27-8998WUOY Healthcare Work Phone: TBH CREATININEon 54-78-3431Yiapxezgpz [Mass/Vol]0.92 mg/dL0.55 - 1.02 mg/dLNOMS HealthcareGFR/1.73 sq M.predicted CKD-EPI (S/P/Bld) [Vol rate/Area]>60>=60 mL/min/1.73m 2NOMS HealthcareTBH EGFR-NON AF EGYPTIAN>60 >=60 mL/min/1.73m 2NOMS HealthcareCLINISYNCNOMS HealthcareSEGMENTAL BLOOD PRESSUREon 26-39-3730RwsGr[place] [address] Vein Report Signed Patient: MITZI MACIAS MR#: [id number] : 1970 Acct:[id number] Age/Sex: 53 / F ADM Date: 04/24/24 Loc: Attending Dr: Comfort Pretty Ordering Physician: Comfort Pretty Date of Service: 04/24/24 Procedure(s): SEGMENTAL PRESSURES Accession Number(s): [id number] cc: Mckayla Blas CUPOLA CHARGER; Comfort Pretty [place] [address] Patient Name: MITZI MACIAS MRN: [id number] date: 1970 Sex: F Assigned Patient Location: Current Patient Location: Accession/Order Number: [id number] Exam Date: 04/24/2024 10:25 Report Date: 04/24/2024 11:20 At the request of: COMFORT PRETTY Procedure: SEGMENTAL PRESSURES EXAM: SEGMENTAL PRESSURES HISTORY: R09.89 COMPARISON: None. FINDINGS: Segmental pressures presented as follows (right, left) in mmHg. Brachial: 169, 166 Upper thigh: Not obtained Lower thigh: 129, 119 Calf: 124, 106 DPA: 108, 105 DENTAL HYGIENIST: 100, 91 1st Toe: 124, 142 ISABELLE: [...] Celestin M.D. Signed By: 04/24/24 1123 DD/ 19 TD/TT: Deckhand [employer]onge [employer]:SONNYHRadiology, Radiologist, - 04/24/2024 [place] [address] Vein Report Signed Patient: MITZI MACIAS MR#: [id number] : 1970 Acct:[id number] Age/Sex: 53 / F ADM Date: 04/24/24 Loc: VC Attending Dr: Comfort Pretty Ordering Physician: Comfort Pretty Date of Service: 04/24/24 Procedure(s): VC SEGMENTAL PRESSURES Accession Number(s): [id number] cc: Mckayla Blas CUPOLA CHARGER; Comfort Pretty [facility] [place] [address] Patient Name: MITZI MACIAS MRN: [facility]:[id number] date: 1970 Sex: F Assigned Patient Location: Current Patient Location: Accession/Order Number: [id number] Exam Date: 04/24/2024 10:25 Report Date: 04/24/2024 11:20 At the request of: COMFORT PRETTY Procedure: VC SEGMENTAL PRESSURES EXAM: VC SEGMENTAL PRESSURES HISTORY: R09.89 COMPARISON: None. FINDINGS: Segmental pressures presented as follows (right, left) in mmHg. Brachial: 169, 166 Upper thigh: Not obtained Lower thigh: 129, 119 Calf: 124, 106 DPA: 108, 105 DENTAL HYGIENIST: 100, 91 1st Toe: 124, 142 ISABELLE: [...] Signed By: 04/24/24 1123 DD/ 1120 TD/TT: Deckhand [employer]: CARLOS HealthcareRadiology Study observation (narrative)[facility] HealthcareSEGMENTAL BLOOD PRESSUREOrdered By: Radiologist Radiology on 49-54-4862KZGA Healthcare Work Phone: mm TOMOSYNTHESIS SCREENING BIon 06-12-6873[place] [address] Mammography Report Signed Patient: MITZI MACIAS MR#: [id number] : 1970 Acct:[id number] Age/Sex: 53 / F ADM Date: 12/13/23 Loc: MAMMO Attending Dr: Mckayla Blas NP Ordering Physician: Mckayla Blas NP Results: Date of Service: 12/13/23 Follow Up: Procedure(s): MM tomosynthesis screening BI Accession Number(s): [id number] cc: Mckayla Blas NP Patient Name: MITZI MACIAS MR#: [id number] : 1970 Exam Date: 12/13/2023 Ordering Doctor: [...] unknown cancer at age 75. LOCATION: [facility] BREAST COMPOSITION: The breasts are almost [...] Signed By: 12/14/23 1122 DD/ 1121 TD/TT: Deckhand Sponge Boat:TBHRadiology, Radiologist, MD - 12/14/2023 [place] [address] Mammography Report Signed Patient: MITZI MACIAS MR#: [id number] : 1970 Acct:[id number] Age/Sex: 53 / F ADM Date: 12/13/23 Loc: MAMMO Attending Dr: Mckayla Blas NP Ordering Physician: Mckayla Blas NP Results: Date of Service: 12/13/23 Follow Up: Procedure(s): MM tomosynthesis screening BI Accession Number(s): [id number] cc: Mckayla Blas NP Patient Name: MITZI MACIAS MR#: [id number] : 1970 Exam Date: 12/13/2023 Ordering Doctor: [...] unknown cancer at age 75. LOCATION: [facility] BREAST COMPOSITION: The breasts are almost [...] Signed By: 12/14/23 1122 DD/ 1121 TD/TT: Deckhand Sponge Boat: [facility] Cancer CenterRadiology Study observation (narrative)[facility] TOMOSYNTHESIS SCREENING BIOrdered By: Radiologist Radiology on 80-16-8259VSUQAlvin J. Siteman Cancer Center Work Phone: bLOOD CULTURE 1on 92-87-1323SACAZ CULTURE 1 Blood Culture 1 NG5D NO GROWTH AT 5 DAYS.^NO GROWTH AT 5 DAYS. [facility]item[facility] Cancer CenterBLOOD CULTURE 2on 46-38-6996DWEUW CULTURE 2 Blood Culture 2 NG5D NO GROWTH AT 5 DAYS.^NO GROWTH AT 5 DAYS. [facility] Cancer CenterNo Panel Informationon 17-74-3798ZBAOZQBYXZJDJ HealthcareECG 12-LEADon 09-01-6455[place]mrGr[place] [address] Electrocardiograph Report Signed Patient: MITZI MACIAS MR#: [id number] : 1970 Acct:[id number] Age/Sex: 53 / F ADM Date: 08/31/23 Loc: [place] 214-[address]: Jacqueline Becerra D.O. 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 Signed By: 09/02/23 0732 DD/ 180 TD/TT: Deckhand Sponge Boat:TBHRadiology, Radiologist, - 09/02/2023 [place] [address] Electrocardiograph Report Signed Patient: MITZI MACIAS MR#: [id number] : 1970 Acct:[id number] Age/Sex: 53 / F ADM Date: 08/31/23 Loc: [place] 214-[address]: Jacqueline Becerra D.O. 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 Signed By: 09/02/23 0732 DD/ 1808 TD/TT: Deckhand Sponge Boat: CARLOS [facility] 12-LEADOrdered By: Radiologist Radiology on 70-07-9055QNTQ [employer] Work Phone: EC 12-LEADon 67-89-2742Qytckdior Study observation (narrative)CARLOS [facility] AUTO DIFFon 27-76-5540PSDE #0.0 103/ulNormal 0.0-0.1The [facility] HospitalComment on above:Performed By: #### CBC #### [facility] [address] [place] [address] Dr. Ashlie HillsBasophils/100 WBC (Bld)0.1 %Critically low0.2-2.0The [facility] HospitalComment on above:Performed By: #### CBC #### [facility] [address] [place] [address] Dr. Ashlie Mcintosh #0.0 103/ulNormal0.0-0.7The [facility] HospitalComment on above: Performed By: #### CBC #### [facility] [address] [place] [address] Dr. Ashlie Grahamosinophils/100 WBC (Bld)0.0 %Critically low0.9-7.0The [facility] HospitalComment on above:Performed By: #### CBC #### [facility] [address] [place] [address] Dr. Ashlie Grahamrythrocyte distribution width (RBC) [Ratio]14.9 %Aquvku78.0-15.0 The [facility] HospitalComment on above:Performed By: #### CBC #### [facility] [address] [place] [address] Dr. Ashlie HillsHematocrit (Bld) [Volume fraction]46.2 %Rxlnca40.0-48.0[facility] SouthComment on above:Performed By: #### CBC #### [facility] [address] [place] [address] Dr. Ashlie HillsHemoglobin (Bld) [Mass/Vol]14.7 g/tTMaxcwt57.0-16.0The [facility] HospitalComment on above:Performed By: #### CBC #### [facility] [address] [place] [address] Dr. Ashlie Hunter #0.06 10e3/ulCritically high0.00-0.03The [facility] Comment on above:Performed By: #### CBC #### [facility] [address] [place] [address] Dr. Ashlie Hunter %0.4 %Normal0.0-0.5The [facility] HospitalComment on above: Performed By: #### CBC #### [facility] [address] [place] [address] Dr. Ashlie Swenson #1.3 103/ulNormal1.2-3.8The [facility] HospitalComment on above:Performed By: #### CBC #### [facility] [address] [place] [address] Dr. Ashlie Dsouzahocytes/100 WBC (Bld)9.4 %Critically low20.5-60.0The [facility] HospitalComment on above:Performed By: #### CBC #### [facility] [address] [place] [address] Dr. Ashlie GhoshUAL DIFF REQNONormalThe [facility] HospitalComment on above: Performed By: #### CBC #### [facility] [address] [place] [address] Dr. Ashlie Mckeon (RBC) [Entitic mass]28.4 fqPcmnil12.7-34.0The [facility] HospitalComment on above:Performed By: #### CBC #### [facility] [address] [place] [address] Dr. Ashlie Mckeon (RBC) [Mass/Vol]31.8 g/mIIlvuib23.9-35.2The [facility] HospitalComment on above:Performed By: #### CBC #### [facility] [address] [place] [address] Dr. Ashlie MckeonV (RBC) [Entitic vol]89.4 nSTlveom24.0-99.0The [facility] HospitalComment on above:Performed By: #### CBC #### [facility] [address] [place] [address] Dr. Ashlie Killian #0.5 103/ulNormal0.3-0.8The [facility] HospitalComment on above:Performed By: #### CBC #### [facility] [address] [place] [address] Dr. Ashlie Palominoocytes/100 WBC (Bld)3.4 %Normal1.7-12.0The [facility] Comment on above:Performed By: #### CBC #### [facility] [address] [place] [address] Dr. Ashlie Olsen #11.8 103/ulCritically high1.4-6.5The [facility] Comment on above:Performed By: #### CBC #### [facility] [address] [place] [address] Dr. Ashlie Quiñonesutrophils/100 WBC (Bld)86.7 %Critically high43.0-75.0The [facility] HospitalComment on above:Performed By: #### CBC #### [facility] [address] [place] [address] Dr. Ashlie Lantigualet mean volume (Bld) [Entitic vol]12.6 fLNormal9.5-13.5The [facility] HospitalComment on above:Performed By: #### CBC #### [facility] [address] [place] [address] Dr. Ashlie HillsPLT133 103/ulCritically gde999-238Eve [facility] HospitalComment on above:Performed By: #### CBC #### [facility] [address] [place] [address] Dr. Ashlie HillsRBC5.17 106/ulNormal4.20-5.40The [facility] HospitalComment on above:Performed By: #### CBC #### [facility] [address] [place] [address] [address] Ashlie HillsWBC13.6 103/ulCritically high4.0-11.0The [facility] HospitalComment on above:Performed By: #### CBC #### [facility] [address] [place] [address] [address] Ashlie HillsMAGNESIUMon 48-98-8029Hutremkev [Mass/Vol]2.2 mg/dLNormal1.8-2.4 The [facility] HospitalComment on above:Performed By: #### INFLUAB #### [facility] [address] [place] [address] [address] Ashlie HillsPOINT OF CARE GLUCOSEon 09-74-8276Iidobhy [Mass/Vol]340 mg/dL Critically cidp01-117Etc [facility] HospitalComment on above:Performed By: #### POCGLUC #### [facility] [address] [place] [address] Dr. Ashlie HillsGlucose [Mass/Vol]276 mg/dLCritically iwbv21-437Gyj [facility] HospitalComment on above:Performed By: #### CBC #### [facility] [address] [place] [address] [address] Ashlie HillsGlucose [Mass/Vol]333 mg/dLCritically kdvy91-680Xya [facility] HospitalComment on above:Performed By: #### CBC #### [facility] [address] [place] [address] Dr. Ashlie HillsPROF CHEM 8 (BAS METB)on 84-60-3530Fdpkm gap [Moles/Vol]10.9 mmol/LNormalThe [facility] HospitalComment on above:Performed By: #### INFLUAB #### [facility] [address] [place] [address] Dr. Ashlie HillsCalcium [Mass/Vol]9.3 mg/dLNormal8.5-10.1The [facility] Comment on above:Performed By: #### INFLUAB #### [facility] [address] [place] [address] [address] Ashlie HillsChloride [Moles/Vol]103 mmol/JVqmepp03-062Lpz [facility] Comment on above:Performed By: #### INFLUAB #### [facility] [address] [place] [address] [address] Ashlie HillsCO2 [Moles/Vol]31.2 mmol/EYmypgu29.0-32.0The [facility] Comment on above:Performed By: #### INFLUAB #### [facility] [address] [place] [address] [address] Ashlie HillsCreatinine [Mass/Vol]0.96 mg/dLNormal0.55-1.02[facility] SouthComment on above:Performed By: #### INFLUAB #### [facility] [address] [place] [address] [address] Ashlie GrahamGFR-AF EGYPTIAN>60Normal>=60The [facility] HospitalComment on above:Performed By: #### INFLUAB #### [facility] [address] [place] [address] [address] Ashlie GrahamGFR-NON AF EGYPTIAN>60Normal>=60The [facility] HospitalComment on above:Performed By: #### INFLUAB #### [facility] [address] [place] [address] [address] Ashlie HillsGlucose [Mass/Vol]288 mg/dLCritically wrzj64-791Wtq [facility] HospitalComment on above:Performed By: #### INFLUAB #### [facility] [address] [place] [address] [address] Ashlie HillsPotassium [Moles/Vol]5.1 mmol/LNormal3.5-5.1The [facility] Comment on above:Performed By: #### INFLUAB #### [facility] [address] [place] [address] [address] Ashlie HillsSodium [Moles/Vol]140 mmol/WJuvchd103-988Bsh [facility] Comment on above:Performed By: #### INFLUAB #### [facility] [address] [place] [address] [address] Ashlie HillsUrea nitrogen [Mass/Vol]30.0 mg/dLCritically high7.0-18.0The [facility]fredo HospitalComment on above:Performed By: #### INFLUAB #### [facility] [address] [place] [address] Dr. Ashlie HillsUrea nitrogen/Creatinine [Mass ratio]31.2 mg/mgNoalThMadison HealthComment on above:Performed By: #### INFLUAB #### [facility] [address] [place] [address] Dr. Ashlie VernonC AUTO DIFFon 14-19-1965WNAX #0.0 103/ulNormal0.0-0.1The [facility] Hospitalment on above:Performed By: #### CBC #### [facility] [address] [place] [address] Dr. Ashlie HillsBasophils/100 WBC (Bld)0.4 %Normal0.2-2.0[facility] on above:Performed By: #### CBC #### [facility] [address] [place] [address] Dr. Ashlie Mcintosh #0.0 103/ulNormal0.0-0.7The [facility] HospitalComment on above: Performed By: #### CBC #### [facility] [address] [place] [address] Dr. Ashlie Grahamosinophils/100 WBC (Bld)0.0 %Critically low0.9-7.0Memorial Hospitalment on above:Performed By: #### CBC #### [facility] [address] [place] [address] Dr. Ashlie Grahamrythrocyte distribution width (RBC) [Ratio]14.8 %Fuenbp68.0-15.0 Memorial Hospitalment on above:Performed By: #### CBC #### [facility] [address] [place] [address] Dr. Ashlie HillsHematocrit (Bld) [Volume fraction]49.9 %Critically high36.0-48.0 [facility] SouthComment on above:Performed By: #### CBC #### [facility] [address] [place] [address] Dr. Ashlie HillsHemoglobin (Bld) [Mass/Vol]15.7 g/xNZootlz38.0-16.0The [facility] HospitalComment on above:Performed By: #### CBC #### [facility] [address] [place] [address] Dr. Ashlie Hunter #0.04 10e3/ulCritically high0.00-0.03The [facility] Comment on above:Performed By: #### CBC #### [facility] [address] [place] [address] Dr. Ashlie Hunter %0.5 %Normal0.0-0.5The [facility] HospitalComment on above: Performed By: #### CBC #### [facility] [address] [place] [address] Dr. Ashlie Swenson #1.1 103/ulCritically low1.2-3.8The [facility] Comment on above:Performed By: #### CBC #### [facility] [address] [place] [address] Dr. Ashlie Dsouzahocytes/100 WBC (Bld)12.7 %Critically low20.5-60.0The [facility] HospitalComment on above:Performed By: #### CBC #### [facility] [address] [place] [address] Dr. Ashlie GhoshUAL DIFF REQNONormalThe [facility] HospitalComment on above: Performed By: #### CBC #### [facility] [address] [place] [address] Dr. Ashlie Mckeon (RBC) [Entitic mass]28.1 jlRshnnd24.7-34.0The [facility] HospitalComment on above:Performed By: #### CBC #### [facility] [address] [place] [address] Dr. Ashlie Mckeon (RBC) [Mass/Vol]31.5 g/lCLisijy16.9-35.2The [facility] HospitalComment on above:Performed By: #### CBC #### [facility] [address] [place] [address] Dr. Ashlie MckeonV (RBC) [Entitic vol]89.3 oWLiyqih01.0-99.0The [facility] HospitalComment on above:Performed By: #### CBC #### [facility] [address] [place] [address] [address] Ashlie Killian #0.1 103/ulCritically low0.3-0.8The [facility] HospitalComment on above:Performed By: #### CBC #### [facility] [address] [place] [address] [address] Ashlie Palominoocytes/100 WBC (Bld)1.3 %Critically low1.7-12.0The [facility] HospitalComment on above:Performed By: #### CBC #### [facility] [address] [place] [address] Dr. Ashlie Olsen #7.2 103/ulCritically high1.4-6.5The [facility] Comment on above:Performed By: #### CBC #### [facility] [address] [place] [address] Dr. Ashlie Quiñonesutrophils/100 WBC (Bld)85.1 %Critically high43.0-75.0The [facility] HospitalComment on above:Performed By: #### CBC #### [facility] [address] [place] [address] Dr. Ashlie Lantigualet mean volume (Bld) [Entitic vol]12.2 fLNormal9.5-13.5The [facility] HospitalComment on above:Performed By: #### CBC #### [facility] [address] [place] [address] Dr. Ashlie HillsPLT116 103/ulCritically gmi887-438Wyk [facility] HospitalComment on above:Performed By: #### CBC #### [facility] [address] [place] [address] Dr. Ashlie HillsRBC5.59 106/ulCritically high4.20-5.40The [facility] Comment on above:Performed By: #### CBC #### [facility] [address] [place] [address] [address] [address] Ashlie HillsWBC8.5 103/ulNormal4.0-11.0The [facility] HospitalComment on above: Performed By: #### CBC #### [facility] [id number] Ashlie Harrison CHEST WO W CONon [id number] CHEST WO W CONEXAMINATION: CTA CHEST WO [...] Electronically authenticated by: HATTIE GOFF Date: 2022-12-05 01:52NormalThe [facility] HospitalMAGNESIUMon [id number] [Mass/Vol]2.1 mg/dLNormal 1.8-2.4The [facility] HospitalComment on above:Performed By: #### POCGLUC #### [facility] [address] [address] [address] Ashlie HillsPOINT OF CARE GLUCOSEon [id number] [Mass/Vol]293 mg/dL Critically qrdk77-459Stb [facility] HospitalComment on above:Performed By: #### POCGLUC #### [facility] [address] [address] [address] Ashlie HillsGlucose [Mass/Vol]269 mg/dLCritically ppeg36-151Ybm [facility] HospitalComment on above:Performed By: #### POCGLUC #### [facility] [address] [address] [address] Ashlie HillsGlucose [Mass/Vol]223 mg/dLCritically ppzz16-403Xmb [facility] HospitalComment on above:Performed By: #### CVDAGS #### [facility] [address] [place] [address] Dr. Ashlie HillsPROF CHEM 8 (BAS METB)on 50-89-5511Brasn gap [Moles/Vol]11.6 mmol/LNormalThe [facility] HospitalComment on above:Performed By: #### POCGLUC #### [facility] [address] [address] [address] Ashlie HillsCalcium [Mass/Vol]9.2 mg/dLNormal8.5-10.1The [facility] Comment on above:Performed By: #### POCGLUC #### [facility] [address] [address] [address] Ashlie HillsChloride [Moles/Vol]102 mmol/LQvizzy05-251Eop [facility] Comment on above:Performed By: #### POCGLUC #### [facility] [address] [address] [address] Ashlie HillsCO2 [Moles/Vol]28.7 mmol/ZNhxvpc44.0-32.0The [facility] Comment on above:Performed By: #### POCGLUC #### [facility] [address] [place] [address] Dr. Ashlie HillsCreatinine [Mass/Vol]1.04 mg/dLCritically high0.55-1.02The [facility] HospitalComment on above:Performed By: #### POCGLUC #### [facility] [address] [address] [address] Ashlie GrahamGFR-AF EGYPTIAN>60Normal>=60The [facility] HospitalComment on above:Performed By: #### POCGLUC #### [facility] [address] [address] [address] Ashlie GrahamGFR-NON AF OSNXHCUG87 mL/min/1.12m1Psbkfeiyqm low>=60The [facility] HospitalComment on above:Performed By: #### POCGLUC #### [facility] [address] [address] [address] Ashlie HillsGlucose [Mass/Vol]231 mg/dLCritically pdbw42-686Qwq [facility] on above:Performed By: #### POCGLUC #### [facility] [address] [address] [address] Ashlie HillsPotassium [Moles/Vol]4.3 mmol/LNormal3.5-5.1The [facility] Comment on above:Performed By: #### POCGLUC #### [facility] [address] [address] [address] Ashlie HillsSodium [Moles/Vol]138 mmol/ACyacyi703-209Ygg [facility] Comment on above:Performed By: #### POCGLUC #### [facility] [address] [address] [address] Ashlie HillsUrea nitrogen [Mass/Vol]17.0 mg/dLNormal7.0-18.0The [facility] on above:Performed By: #### POCGLUC #### [facility] [address] [address] [address] Ashlie HillsUrea nitrogen/Creatinine [Mass ratio]16.3 mg/mgNormalThe [facility] HospitalComment on above:Performed By: #### POCGLUC #### [facility] [address] [address] [address] Ashlie HillsRESPIRATORY PANEL PLUSon 46-74-4714KhizhcsehoQsc detectedNormal NOT DETECTEDThe [facility] HospitalComment on above:Performed By: #### CVDAGS #### [facility] [address] [address] [address] Ashlie Gandhi ParapertusisNot detectedNormalNOT DETECTEDThe [facility] HospitalComment on above:Performed By: #### CVDAGS #### [facility] [address] [address] [address] Ashlie Gandhi PertussisNot detectedNormalNOT DETECTEDThe [facility] Comment on above:Performed By: #### CVDAGS #### [facility] [address] [address] [address] Ashlie HillsChlamydia PneumoniaeNot detectedNormalNOT DETECTEDThe [facility] HospitalComment on above:Performed By: #### CVDAGS #### [facility] [address] [address] [address] Ashlie HillsCoronavirus 229ENot detectedNormalNOT DETECTEDThe [facility] HospitalComment on above:Performed By: #### CVDAGS #### [facility] [address] [address] [address] Ashlie HillsCoronavirus IFF1Dba detectedNormalNOT DETECTEDThe [facility] HospitalComment on above:Performed By: #### CVDAGS #### [facility] [address] [address] [address] Dailey ChangCoronavirus VC16Ock detectedNormalNOT DETECTEDThe [facility] HospitalComselect specialty hospital on above:Performed By: #### CVDAGS #### [facility] [address] [address] [address] Ashlie HillsCoronavirus SX70Snt detectedNormalNOT DETECTEDThe [facility] HospitalComselect specialty hospital on above:Performed By: #### CVDAGS #### [facility] [address] [address] [address] Ashlie Lockhart A H1Not detectedNormalNOT DETECTEDThe [facility] Comment on above:Performed By: #### CVDAGS #### [facility] [address] [address] [address] Ashlie Centeno H1 2009Not detectedNormalNOT DETECTEDThe [facility] HospitalComment on above:Performed By: #### CVDAGS #### [facility] [address] [address] [address] Ashlie Centeno H3Not detectedNormalNOT DETECTEDThe [facility] Comment on above:Performed By: #### CVDAGS #### [facility] [address] [address] [address] Ashlie Lockhart BNot detectedNormalNOT DETECTEDThe [facility] Comment on above:Performed By: #### CVDAGS #### [facility] [address] [address] [address] Ashlie ChávezapneumovirusNot detectedNormalNOT DETECTEDThe [facility] HospitalComselect specialty hospital on above:Performed By: #### CVDAGS #### [facility] [address] [address] [address] Ashlie Jimenez. PneumoniaeNot detectedNormalNOT DETECTEDThe [facility] HospitalComment on above:Performed By: #### CVDAGS #### [facility] [address] [address] [address] Ashlie Mendieta 1Not detectedNormalNOT DETECTEDThe [facility] HospitalComselect specialty hospital on above:Performed By: #### CVDAGS #### [facility] [address] [address] [address] Ashlie Mendieta 2Not detectedNormalNOT DETECTEDThe [facility] HospitalComment on above:Performed By: #### CVDAGS #### [facility] [address] [address] [address] Ashlie Mendieta 3DetectedAbnormalNOT DETECTEDThe [facility] Comment on above:Performed By: #### CVDAGS #### [facility] [address] [address] [address] Ashlie Mendieta 4Not detectedNormalNOT DETECTEDThe [facility] HospitalComselect specialty hospital on above:Performed By: #### CVDAGS #### [facility] [address] [place] [address] Dr. Ashlie HillsRhino/EnterovirusNot detectedNormalNOT DETECTEDThe [facility] HospitalComment on above:Performed By: #### CVDAGS #### [facility] [address] [place] [address] Dr. Ashlie Gallagher Header 1RESPIRATORY PANEL: VIRUSESKettering Health [facility] Comment on above:Performed By: #### CVDAGS #### [facility] [address] [address] [address] Ashlie Gallagher Header 2RESPIRATORY PANEL: BACTERIAKettering Health DaytonComment on above:Performed By: #### CVDAGS #### [facility] [address] [place] [address] Dr. Ashlie GivensNot detectedNormalNOT DETECTEDThe [facility] HospitalComment on above:Performed By: #### CVDAGS #### [facility] [address] [place] [address] Dr. Ashlie Finney-CoV-2 (COVID-19) RNA MADDY+probe Ql (Unsp spec)Not detected NormalNOT DETECTEDThe [facility] HospitalComment on above:Performed By: #### CVDAGS #### [facility] [address] [place] [address] Dr. Ashlie HillsXR CHEST 1 Von [id number] CHEST 1 VEXAMINATION: XR CHEST 1 V HISTORY: Shortness of breath COMPARISON: Chest x-ray 08/09/2021 TECHNIQUE: Portable chest FINDINGS: The lung parenchyma is free of consolidation or infiltrate. No pneumothorax or pleural effusion. The cardiac, mediastinal and hilar contours are normal. The visualized osseous structures exhibit no gross abnormality. IMPRESSION: No acute cardiopulmonary abnormality. Electronically authenticated by: MARYANNE POWER Date: 2022-12-04 22:23[facility]tering Health DaytonBLOOD GASES BTYon MODEROOUniversity Hospitals Parma Medical CenterComment on above:Performed By: #### CBC #### [facility] [address] [place] [address] Dr. Ashlie Duran TESTPositiveNorwalk Memorial Hospitalment on above: Performed By: #### CBC #### [facility] [address] [address] [address] Ashlie Crenshaw excess Calc (Bld) [Moles/Vol]5.4 mmol/LCritically high -2.0-2.0The [facility] on above:Performed By: #### CBC #### [facility] [address] [address] [address] Ashlie SkyP [facility] HospitalComselect specialty hospital on above: Performed By: #### CBC #### [facility] [address] [address] [address] Ashlie HillsCPMedina Hospital on above:Performed By: #### CBC #### [facility] [address] [address] [address] Ashlie HillsNzxxySQT0FujwnbWyk20 Murray StreetComselect specialty hospital on above:Performed By: #### CBC #### [facility] [address] [address] [address] Ashlie HillsHCO3 (Bld) [Moles/Vol]30.8 mmol/LCritically high22.0-26.0The [facility] on above:Performed By: #### CBC #### [facility] [address] [address] [address] Ashlie HillsLPMNormalThe [facility] HospitalComselect specialty hospital on above:Performed By: #### CBC #### [facility] [address] [address] [address] Ashlie HackettUTE VOLUMEKettering Health DaytonComselect specialty hospital on above: Performed By: #### CBC #### [facility] [address] [address] [address] Ashlie HillsOxygen (Bld) [Partial pressure]46.3 mm[Hg]Critically low 80.0-100.0[facility] on above:Performed By: #### CBC #### [facility] [address] [place] [address] Dr. Yilan ChangOxygen saturation in Blood83.9 %Critically low95.0-100.0The [facility] HospitalComment on above:Performed By: #### CBC #### [facility] [address] [address] [address] Ashlie HillsPCO254.2 mmHgCritically high35.0-45.0The [facility] on above:Performed By: #### CBC #### [facility] [address] [address] [address] Ashlie HillsGeorgetown Behavioral HospitalComselect specialty hospital on above:Performed By: #### CBC #### [facility] [address] [address] [address] Ashlie Knapp (Bld)7.363 [pH]Normal7.350-7.450The [facility] on above:Performed By: #### CBC #### [facility] [address] [address] [address] Ashlie VerasSelect Medical Specialty Hospital - Columbus SouthComselect specialty hospital on above:Performed By: #### CBC #### [facility] [address] [address] [address] Ashlie HillsMercy Health [facility]iffin [facility] on above:Performed By: #### CBC #### [facility] [address] [place] [address] Dr. Ashlie Avendano [facility] HospitalComselect specialty hospital on above: Performed By: #### CBC #### [facility] [address] [place] [address] Dr. Ashlie GoldSelect Medical Specialty Hospital - [facility] SouthComselect specialty hospital on above:Performed By: #### CBC #### [facility] [address] [address] [address] Ashlie HillsOhio Valley HospitalComselect specialty hospital on above:Performed By: #### CBC #### [facility] [address] [place] [address] Dr. Ashlie HillsKettering Health Washington TownshipComselect specialty hospital on above:Performed By: #### CBC #### [facility] [address] [address] [address] Ashlie Perry 85-90-7716Jmzdpqvktkk peptide B (Bld) [Mass/Vol]76.0 pg/mL Normal<=900.0The [facility] HospitalComment on above:Performed By: #### POCGLUC #### [facility] [address] [address] [address] Ashlie Chinchilla AUTO DIFFon [id number] #0.1 103/ulNormal0.0-0.1The [facility] HospitalComment on above:Performed By: #### CBC #### [facility] [address] [address] [address] Ashlie HillsBasophils/100 WBC (Bld)0.6 %Normal0.2-2.0[facility] Comment on above:Performed By: #### CBC #### [facility] [address] [address] [address] Ashlie Mcintosh #0.2 103/ulNormal0.0-0.7The [facility] HospitalComment on above: Performed By: #### CBC #### [facility] [address] [address] [address] Ashlie Grahamosinophils/100 WBC (Bld)1.9 %Normal0.9-7.0[facility] Comment on above:Performed By: #### CBC #### [facility] [address] [place] [address] Dr. Ashlie Grahamrythrocyte distribution width (RBC) [Ratio]15.0 %Cvfgup58.0-15.0 [facility] SouthComment on above:Performed By: #### CBC #### [facility] [address] [address] [address] Ashlie HillsHematocrit (Bld) [Volume fraction]49.1 %Critically high36.0-48.0 [facility] SouthComment on above:Performed By: #### CBC #### [facility] [address] [address] [address] Ashlie HillsHemoglobin (Bld) [Mass/Vol]15.6 g/qTGxbklo06.0-16.0The [facility] HospitalComment on above:Performed By: #### CBC #### [facility] [address] [place] [address] Dr. Ashlie Hunter #0.02 10e3/ulNormal0.00-0.03The [facility] HospitalComment on above:Performed By: #### CBC #### [facility] [address] [place] [address] Dr. Ashlie Hunter %0.2 %Normal0.0-0.5The [facility] HospitalComment on above: Performed By: #### CBC #### [facility] [address] [place] [address] Dr. Ashlie Swenson #2.8 103/ulNormal1.2-3.8The [facility] HospitalComment on above:Performed By: #### CBC #### [facility] [address] [place] [address] Dr. Ashlie Dsouzahocytes/100 WBC (Bld)29.9 %Ztbtjf59.5-60.0The [facility] HospitalComment on above:Performed By: #### CBC #### [facility] [address] [place] [address] Dr. Ashlie Marie DIFF REQNONormalThe [facility] HospitalComment on above: Performed By: #### CBC #### [facility] [address] [place] [address] Dr. Ashlie Mckeon (RBC) [Entitic mass]28.5 lbUmuanm58.7-34.0The [facility] HospitalComment on above:Performed By: #### CBC #### [facility] [address] [place] [address] Dr. Ashlie Mckeon (RBC) [Mass/Vol]31.8 g/kPDxtane88.9-35.2The [facility] HospitalComment on above:Performed By: #### CBC #### [facility] [address] [place] [address] Dr. Ashlie Mckeon (RBC) [Entitic vol]89.8 iELdezfb75.0-99.0The [facility] HospitalComment on above:Performed By: #### CBC #### [facility] [address] [place] [address] Dr. Ashlie Killian #1.0 103/ulCritically high0.3-0.8The [facility] Comment on above:Performed By: #### CBC #### [facility] [address] [place] [address] Dr. Ashlie Palominoocytes/100 WBC (Bld)10.6 %Normal1.7-12.0[facility] Comment on above:Performed By: #### CBC #### [facility] [address] [place] [address] Dr. Ashlie Olsen #5.3 103/ulNormal1.4-6.5The [facility] HospitalComment on above:Performed By: #### CBC #### [facility] [address] [place] [address] Dr. Ashlie Quiñonesutrophils/100 WBC (Bld)56.8 %Hhnudb98.0-75.0The [facility] HospitalComment on above:Performed By: #### CBC #### [facility] [address] [place] [address] Dr. Ashlie Crump mean volume (Bld) [Entitic vol]12.5 fLNormal9.5-13.5The [facility] HospitalComment on above:Performed By: #### CBC #### [facility] [address] [place] [address] Dr. Ashlie WhiteT109 103/ulCritically msn695-591Xxr [facility] HospitalComment on above:Performed By: #### CBC #### [facility] [address] [place] [address] Dr. Ashlie PruettC5.47 106/ulCritically high4.20-5.40The [facility] Comment on above:Performed By: #### CBC #### [facility] [address] [place] [address] Dr. Ashlie BhaktaBC9.4 103/ulNormal4.0-11.0The [facility] HospitalComment on above: Performed By: #### CBC #### [facility] [address] [place] [address] Dr. Ashlie Jones 14(COMP METB)on 36-58-4514Brpznno [Mass/Vol]2.9 g/dL Critically low3.4-5.0The [facility] HospitalComment on above:Performed By: #### CBC #### [facility] [address] [place] [address] Dr. Ashlie HillsAlbumin/Globulin [Mass ratio]0.6 {ratio}NormalThe [facility] HospitalComment on above:Performed By: #### CBC #### [facility] [address] [place] [address] Dr. Ashlie Gonzalez [Catalytic activity/Vol]64 U/JXbuaow42-342Zmv [facility] HospitalComment on above:Performed By: #### CBC #### [facility] [address] [place] [address] Dr. Ashlie Chambers [Catalytic activity/Vol]16 U/IEjnpor06-29Hlh [facility] HospitalComment on above:Performed By: #### CBC #### [facility] [address] [place] [address] Dr. Ashlie Arce gap [Moles/Vol]9.6 mmol/LNormalThe [facility] HospitalComment on above:Performed By: #### CBC #### [facility] [address] [place] [address] Dr. Ashlie Tiwari [Catalytic activity/Vol]16 U/GQuasoo39-37Jii [facility] HospitalComment on above:Performed By: #### CBC #### [facility] [address] [place] [address] Dr. Ashlie HillsBilirubin [Mass/Vol]0.5 mg/dLNormal0.2-1.0The [facility] Comment on above:Performed By: #### CBC #### [facility] [address] [place] [address] Dr. Ashlie HillsCalcium [Mass/Vol]8.7 mg/dLNormal8.5-10.1The [facility] Comment on above:Performed By: #### CBC #### [facility] [address] [address] [address] Ashlie HillsChloride [Moles/Vol]103 mmol/MLqmklb32-338Hri [facility] Comment on above:Performed By: #### CBC #### [facility] [address] [address] [address] Ashlie HillsCO2 [Moles/Vol]30.7 mmol/QAnvohy61.0-32.0The [facility] Comment on above:Performed By: #### CBC #### [facility] [address] [address] [address] Ashlie HillsCreatinine [Mass/Vol]0.96 mg/dLNormal0.55-1.02The [facility] HospitalComment on above:Performed By: #### CBC #### [facility] [address] [place] [address] Dr. Ashlie GrahamGFR-AF EGYPTIAN>60Normal>=60The [facility] HospitalComment on above:Performed By: #### CBC #### [facility] [address] [address] [address] Ashlie Delaney-NON AF EGYPTIAN>60Normal>=60The [facility] HospitalComment on above:Performed By: #### CBC #### [facility] [address] [address] [address] Ashlie HillsGlobulin (S) [Mass/Vol]4.7 g/dLNormalThe [facility] HospitalComment on above:Performed By: #### CBC #### [facility] [address] [address] [address] Ashlie HillsGlucose [Mass/Vol]170 mg/dLCritically divl62-526Rrd [facility] HospitalComment on above:Performed By: #### CBC #### [facility] [address] [address] [address] Ashlie HillsPotassium [Moles/Vol]4.3 mmol/LNormal3.5-5.1The [facility] Comment on above:Performed By: #### CBC #### [facility] [address] [address] [address] Ashlie HillsProtein [Mass/Vol]7.6 g/dLNormal6.4-8.2The [facility] Comment on above:Performed By: #### CBC #### [facility] [address] [address] [address] Ashlie HillsSodium [Moles/Vol]139 mmol/HRwikil653-235Oyg [facility] Comment on above:Performed By: #### CBC #### [facility] [address] [place] [address] Dr. Ashlie HillsUrea nitrogen [Mass/Vol]16.0 mg/dLNormal7.0-18.0The [facility] HospitalComment on above:Performed By: #### CBC #### [facility] [address] [place] [address] Dr. Ashlie HillsUrea nitrogen/Creatinine [Mass ratio]16.7 mg/mgNormalThe [facility] HospitalComment on above:Performed By: #### CBC #### [facility] [address] [place] [address] Dr. Ashlie HillsSYMPTOMATIC COVID-19 ANTIGENon [id number] StatementSEE BELOW NormalThe [facility] HospitalComment on above:Result Comment: This test has [...] is revoked sooner.Performed By: #### CVDAGS #### [facility] [address] [place] [address] Dr. Ashlie Finney-CoV-2 (COVID-19) RNA MADDY+probe Ql (Unsp spec)NegativeNormal NEGATIVEPremier Health Miami [facility] Hospital SouthComment on above:Performed By: #### CVDAGS #### [facility] [address] [place] [address] Dr. Ashlie Alvarado, [facility] SENSITIVITYon 04-91-7056GDUVWO4.9 pg/mLNormal 4.0-51.3The [facility] HospitalComment on above:Result Comment: CUT-OFF POINTS HAVE BEEN ESTABLISHED BASED ON THE FOURTH UNIVERSAL DEFINITIONS OF MYOCARDIAL INFARCTION. THE UPPER REFERENCE LIMIT (URL) OF TROPONIN, DEFINED THE 99TH PERCENTILE OF cTnI DISTRIBUTION IN A REFERENCE POPULATION, HAS BEEN CONFIRMED THE DECISION THRESHOLD FOR CO DIAGNOSIS.Performed By: #### POCGLUC #### [facility] [address] [place] [address] Dr. Ashlie MarshallALBUMIN, RAND URon 83-08-3165iWUY79.8 mg/dLCritically high <=30.0The [facility] HospitalComment on above:Performed By: #### CVDAGS #### [facility] [address] [place] [address] Dr. Ashlie Vaughn RANDOM W/MICROSCOPICon 61-30-9837IYTVSECBCFQG SEENNormalNONE SEENPremier Health [facility] Hospital SouthComment on above:Performed By: #### CVDAGS #### [facility] [address] [place] [address] Dr. Ashlie Galarzairubin Ql (U)NegativeNormalNEGATIVEThe [facility] Comment on above:Performed By: #### CVDAGS #### [facility] [address] [place] [address] Dr. Ashlie HillsCASTSEENAbnormalNONE SEENPremier Health [facility] Hospital SouthComment on above: Performed By: #### CVDAGS #### [facility] [address] [place] [address] Dr. Ashlie HillsClarity (U)CLEARNormalCLEARThe Van Wert County HospitalComment on above: Performed By: #### CVDAGS #### [facility] [address] [address] [address] Ashlie Prescottlor (U)YELLOWNormalYELLOWPremier Health Miami Valley Hospital SouthComment on above: Performed By: #### CVDAGS #### [facility] [address] [address] [address] Ashlie HillsCrystals LM Nom (Urine sed)NONE SEENNormalNONE SEENPremier Health Miami Valley Hospital SouthComselect specialty hospital on above:Performed By: #### CVDAGS #### [facility] [address] [address] [address] Dailey ChangEpithelial cells LM Ql (Urine sed)MODERATEAbnormalNONE SEEN /RARE The [facility] HospitalComselect specialty hospital on above:Performed By: #### CVDAGS #### [facility] [address] [place] [address] Dr. Ashlie HillsGlucose Ql (U)NegativeNormalNEGATIVEPremier Health Miami Valley Hospital SouthComselect specialty hospital on above:Performed By: #### CVDAGS #### [facility] [address] [address] [address] Ashlie HillsHemoglobin Ql (U)TRACE-INTACTAbnormalNEGATIVEPremier Health Miami [facility] Hospital SouthComselect specialty hospital on above:Performed By: #### CVDAGS #### [facility] [address] [place] [address] Dr. Ashlie HillsKetones Ql (U)NegativeNormalNEGATIVEPremier Health Miami Valley Hospital SouthComselect specialty hospital on above:Performed By: #### CVDAGS #### [facility] [address] [address] [address] Ashlie HillsLEUKOCYTESNegativeNormalNEGATIVEPremier Health Miami [facility] Hospital SouthComselect specialty hospital on above:Performed By: #### CVDAGS #### [facility] [address] [address] [address] Ashlie HillsMUCOUSNONE SEENNormalNONE SEENPremier Health Miami [facility] Hospital SouthComselect specialty hospital on above:Performed By: #### CVDAGS #### [facility] [address] [address] [address] Ashlie HillsNitrite Ql (U)NegativeNormalNEGATIVEThe [facility] HospitalComment on above:Performed By: #### CVDAGS #### [facility] [address] [place] [address] Dr. Ashlie HillspH (U)5.0 [pH]Normal5-9The [facility] HospitalComment on above: Performed By: #### CVDAGS #### [facility] [address] [place] [address] Dr. Ashlie WilderKeossXRY7-9Vxtxoa4-9Swv [facility] HospitalComment on above:Performed By: #### CVDAGS #### [facility] [address] [place] [address] Dr. Ashlie HillsSPEC GRAVITY1.063Opjagvcr6.005-<=1.025The [facility] Comment on above:Performed By: #### CVDAGS #### [facility] [address] [place] [address] Dr. Ashlie Vaughn EBUSYGK452 mg/dlAbnormalNEGATIVE/ TRACEThe [facility] Comment on above:Performed By: #### CVDAGS #### [facility] [address] [place] [address] Dr. Ashlie Metzbilinogen Qn (U)0.2 {Little'U}/dLNormal0.2 - 1.0The [facility] HospitalComment on above:Performed By: #### CVDAGS #### [facility] [address] [place] [address] Dr. Ashlie HillsWBCNONE SEENNormalNONE SEENThe [facility] HospitalComment on above: Performed By: #### CVDAGS #### [facility] [address] [place] [address] Dr. Ashlie Chinchilla AUTO DIFFon [id number] #0.0 103/ulNormal0.0-0.1The [facility] HospitalComment on above:Performed By: #### CBC #### [facility] [address] [place] [address] Dr. Ashlie HillsBasophils/100 WBC (Bld)0.3 %Normal0.2-2.0The [facility] Comment on above:Performed By: #### CBC #### [facility] [address] [place] [address] Dr. Ashlie Mcintosh #0.4 103/ulNormal0.0-0.7The [facility] HospitalComment on above: Performed By: #### CBC #### [facility] [address] [place] [address] Dr. Ashlie Grahamosinophils/100 WBC (Bld)3.0 %Normal0.9-7.0The [facility] Comment on above:Performed By: #### CBC #### [facility] [address] [place] [address] Dr. Ashlie Grahamrythrocyte distribution width (RBC) [Ratio]15.3 %Critically high 11.0-15.0Prem[facility] Hospital SouthComment on above:Performed By: #### CBC #### [facility] [address] [place] [address] Dr. Ashlie HillsHematocrit (Bld) [Volume fraction]52.4 %Critically high36.0-48.0 The [facility] HospitalComment on above:Performed By: #### CBC #### [facility] [address] [place] [address] Dr. Ashlie HillsHemoglobin (Bld) [Mass/Vol]16.8 g/dLCritically high12.0-16.0[facility] Hospital SouthComment on above:Performed By: #### CBC #### [facility] [address] [place] [address] Dr. Ashlie Hunter #0.04 10e3/ulCritically high0.00-0.03The [facility] Comment on above:Performed By: #### CBC #### [facility] [address] [place] [address] Dr. Ashlie Hunter %0.3 %Normal0.0-0.5The [facility] HospitalComment on above: Performed By: #### CBC #### [facility] [address] [place] [address] Dr. Ashlie Swenson #4.5 103/ulCritically high1.2-3.8The [facility] Comment on above:Performed By: #### CBC #### [facility] [address] [place] [address] Dr. Ashlie Dsouzahocytes/100 WBC (Bld)33.2 %Ruhdhw37.5-60.0The [facility] HospitalComment on above:Performed By: #### CBC #### [facility] [address] [place] [address] Dr. Ashlie Marie DIFF REQNONormalThe [facility] HospitalComment on above: Performed By: #### CBC #### [facility] [address] [place] [address] Dr. Ashlie Granger (RBC) [Entitic mass]28.0 hcGiwrsq09.7-34.0The [facility] HospitalComment on above:Performed By: #### CBC #### [facility] [address] [place] [address] Dr. Ashlie Mckeon (RBC) [Mass/Vol]32.1 g/iTDgcqcj51.9-35.2The [facility] HospitalComment on above:Performed By: #### CBC #### [facility] [address] [place] [address] Dr. Ashlie Mckeon (RBC) [Entitic vol]87.3 yDYjpenu05.0-99.0The [facility] HospitalComment on above:Performed By: #### CBC #### [facility] [address] [place] [address] Dr. Ashlie Killian #0.8 103/ulNormal0.3-0.8The [facility] HospitalComment on above:Performed By: #### CBC #### [facility] [address] [place] [address] Dr. Ashlie Palominoocytes/100 WBC (Bld)5.7 %Normal1.7-12.0[facility] Comment on above:Performed By: #### CBC #### [facility] [address] [place] [address] Dr. Ashlie Olsen #7.8 103/ulCritically high1.4-6.5The [facility] Comment on above:Performed By: #### CBC #### [facility] [address] [address] [address] Ashlie Quiñonesutrophils/100 WBC (Bld)57.5 %Wcipjo93.0-75.0[facility] Hospital SouthComment on above:Performed By: #### CBC #### [facility] [address] [address] [address] Ashlie HillsPlatelet mean volume (Bld) [Entitic vol]12.0 fLNormal9.5-13.5The [facility] HospitalComment on above:Performed By: #### CBC #### [facility] [address] [place] [address] Dr. Ashlie HillsPLT152 103/ibRkwbkk967-888VhePremier Health Miami Valley Hospital SouthComment on above: Performed By: #### CBC #### [facility] [address] [place] [address] Dr. Ashlie HillsRBC6.00 106/ulCritically high4.20-5.40[facility] Comment on above:Performed By: #### CBC #### [facility] [address] [place] [address] Dr. Ashlie HillsWBC13.6 103/ulCritically high4.0-11.0[facility] SouthComment on above:Performed By: #### CBC #### [facility] [address] [place] [address] Dr. Ashlie HillsLIPID PROFILEon [id number]-HDL RATIO NORMSEE [facility] City HospitalComment on above:Result Comment: 3.3 - 4.4 LOW RISK 4.4 - 7.1 AVERAGE RISK 7.1 - 11.0 MODERATE RISK >11.0 HIGH RISKPerformed By: #### CBC #### [facility] [address] [place] [address] Dr. Ashlie HillsCholesterol [Mass/Vol]139 mg/dLNormal<=200The [facility] Comment on above:Performed By: #### CBC #### [facility] [address] [address] [address] Ashlie HillsCholesterol in HDL [Mass/Vol]35 mg/dLCritically zsh44-69SxbPremier Health Miami Valley Hospital SouthComment on above:Performed By: #### CBC #### [facility] [address] [address] [address] Ashlie HillsCholesterol in LDL [Mass/Vol]67.4 mg/dLNoCincinnati Children's Hospital Medical CenterComment on above:Performed By: #### CBC #### [facility] [address] [address] [address] Ashlie Lopezesteroralia.total/Cholesterol in HDL [Mass ratio]4.0 {ratio} NormalPremier Health Miami Valley Hospital SouthComment on above:Performed By: #### CBC #### [facility] [address] [address] [address] Ashlie Potts NORMAL> or = 60 mg/dl - LOW CARDIOVASCULAR RISK <40 mg/dl - HIGH CARDIOVASCULAR RISKNoCincinnati Children's Hospital Medical CenterComment on above:Performed By: #### CBC #### [facility] [address] [address] [address] Ashlie Desai CALC NORMALSEE BELOWKettering Health DaytonComment on above:Result Comment: <100 mg/dl OPTIMAL 100 - 129 mg/dl NEAR OR ABOVE OPTIMAL 130 - 159 mg/dl BORDERLINE HIGH 160 - 189 mg/dl HIGH >190 mg/dl VERY HIGH Performed By: #### CBC #### [facility] [address] [address] [address] Ashlie HillsTriglyceride [Mass/Vol]183 mg/dLCritically high<=150Prem[facility] SouthComment on above:Performed By: #### CBC #### [facility] [address] [address] [address] Ashlie UnderwoodLDL CALC36.6 mg/dLNoCincinnati Children's Hospital Medical CenterComment on above: Performed By: #### CBC #### [facility] [address] [address] [address] 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 LOCATION: [facility] BREAST COMPOSITION: Almost entirely fatty. [...] by: Patricia Veloz M.D. on 11/22/2022 at 12:09[facility]tering [facility] DaytonPROF 14(COMP METB)on [id number] [Mass/Vol]3.0 g/dLCritically low 3.4-5.0The [facility] Hospitalment on above:Performed By: #### CBC #### [facility] [address] [address] [address] Ashlie HillsAlbumin/Globulin [Mass ratio]0.6 {ratio}NormalThe [facility] HospitalComment on above:Performed By: #### CBC #### [facility] [address] [address] [address] Ashlie Gonzalez [Catalytic activity/Vol]68 U/OXrtqwc51-620Ocf [facility] HospitalComment on above:Performed By: #### CBC #### [facility] [address] [address] [address] Ashlie MoralesT [Catalytic activity/Vol]14 U/FYxeryx18-50Xpf [facility] HospitalComment on above:Performed By: #### CBC #### [facility] [address] [address] [address] Ashlie Hassanon gap [Moles/Vol]12.1 mmol/LNormalThe [facility] Comment on above:Performed By: #### CBC #### [facility] [address] [address] [address] Ashlie HillsAST [Catalytic activity/Vol]9 U/LCritically tth81-22Gox [facility] HospitalComment on above:Performed By: #### CBC #### [facility] [address] [address] [address] Ashlie HillsBilirubin [Mass/Vol]0.4 mg/dLNormal0.2-1.0The [facility] Comment on above:Performed By: #### CBC #### [facility] [address] [address] [address] Ashlie HillsCalcium [Mass/Vol]9.0 mg/dLNormal8.5-10.1[facility] Comment on above:Performed By: #### CBC #### [facility] [address] [place] [address] Dr. Ashlie HillsChloride [Moles/Vol]105 mmol/ELooeba72-315Yhg [facility] Comment on above:Performed By: #### CBC #### [facility] [address] [address] [address] Ashlie HillsCO2 [Moles/Vol]30.7 mmol/CEjptpy15.0-32.0The [facility] Comment on above:Performed By: #### CBC #### [facility] [address] [address] [address] Ashlie Lopezatinine [Mass/Vol]0.77 mg/dLNormal0.55-1.02The [facility] HospitalComment on above:Performed By: #### CBC #### [facility] [address] [place] [address] Dr. Ashlie GrahamGFR-AF EGYPTIAN>60Normal>=60The [facility] HospitalComment on above:Performed By: #### CBC #### [facility] [address] [place] [address] Dr. Ashlie GrahamGFR-NON AF EGYPTIAN>60Normal>=60The [facility] HospitalComment on above:Performed By: #### CBC #### [facility] [address] [place] [address] Dr. Ashlie HillsGlobulin (S) [Mass/Vol]4.8 g/dLNormalThe [facility] HospitalComment on above:Performed By: #### CBC #### [facility] [address] [place] [address] Dr. Ashlie HillsGlucose [Mass/Vol]162 mg/dLCritically wkbb28-774GiyMemorial Hospitalment on above:Performed By: #### CBC #### [facility] [address] [place] [address] Dr. Ashlie HillsPotassium [Moles/Vol]3.8 mmol/LNormal3.5-5.1[facility] Comment on above:Performed By: #### CBC #### [facility] [address] [place] [address] Dr. Ashlie HillsProtein [Mass/Vol]7.8 g/dLNormal6.4-8.2[facility] Comment on above:Performed By: #### CBC #### [facility] [address] [place] [address] Dr. Ashlie HillsSodium [Moles/Vol]144 mmol/WRhtcrv589-710Qua [facility] Comment on above:Performed By: #### CBC #### [facility] [address] [place] [address] Dr. Ashlie HillsUrea nitrogen [Mass/Vol]24.0 mg/dLCritically high7.0-18.0The [facility] HospitalComment on above:Performed By: #### CBC #### [facility] [address] [place] [address] Dr. Ashlie Jones nitrogen/Creatinine [Mass ratio]31.2 mg/mgNormalThe [facility] HospitalComment on above:Performed By: #### CBC #### [facility] [address] [place] [address] Dr. Ashlie Chinchilla AUTO DIFFon [id number] #0.1 103/ulNormal0.0-0.1The [facility] HospitalComment on above:Performed By: #### CBC #### [facility] [address] [place] [address] Dr. Ashlie HillsBasophils/100 WBC (Bld)0.6 %Normal0.2-2.0The [facility] Comment on above:Performed By: #### CBC #### [facility] [address] [place] [address] Dr. Ashlie Mcintosh #0.3 103/ulNormal0.0-0.7The [facility] HospitalComment on above: Performed By: #### CBC #### [facility] [address] [place] [address] Dr. Ashlie Grahamosinophils/100 WBC (Bld)2.1 %Normal0.9-7.0The [facility] Comment on above:Performed By: #### CBC #### [facility] [address] [place] [address] Dr. Ashlie Grahamrythrocyte distribution width (RBC) [Ratio]15.9 %Critically high 11.0-15.0The [facility] HospitalComment on above:Performed By: #### CBC #### [facility] [address] [place] [address] Dr. Ashlie HillsHematocrit (Bld) [Volume fraction]51.8 %Critically high36.0-48.0 The [facility] HospitalComment on above:Performed By: #### CBC #### [facility] [address] [address] [address] Ashlie HillsHemoglobin (Bld) [Mass/Vol]16.6 g/dLCritically high12.0-16.0The [facility] HospitalComment on above:Performed By: #### CBC #### [facility] [address] [place] [address] Dr. Ashlie Hunter #0.03 10e3/ulNormal0.00-0.03The [facility] HospitalComment on above:Performed By: #### CBC #### [facility] [address] [place] [address] Dr. Ashlie Hunter %0.2 %Normal0.0-0.5The [facility] HospitalComment on above: Performed By: #### CBC #### [facility] [address] [place] [address] Dr. Ashlie Swenson #3.9 103/ulCritically high1.2-3.8The [facility] Comment on above:Performed By: #### CBC #### [facility] [address] [place] [address] Dr. Ashlie Dsouzahocytes/100 WBC (Bld)31.7 %Pmbous87.5-60.0The [facility] HospitalComment on above:Performed By: #### CBC #### [facility] [address] [place] [address] Dr. Ashlie GhoshUAL DIFF REQNONormalThe [facility] HospitalComment on above: Performed By: #### CBC #### [facility] [address] [place] [address] Dr. Ashlie Mckeon (RBC) [Entitic mass]27.9 kqRwdhfg49.7-34.0The [facility] HospitalComment on above:Performed By: #### CBC #### [facility] [address] [place] [address] Dr. Ashlie Mckeon (RBC) [Mass/Vol]32.0 g/kPWchjcb60.9-35.2The [facility] HospitalComment on above:Performed By: #### CBC #### [facility] [address] [address] [address] Ashlie MckeonV (RBC) [Entitic vol]87.1 lQNkfbzk44.0-99.0The [facility] HospitalComment on above:Performed By: #### CBC #### [facility] [address] [place] [address] Dr. Ashlie Killian #0.7 103/ulNormal0.3-0.8The [facility] HospitalComment on above:Performed By: #### CBC #### [facility] [address] [place] [address] Dr. Ashlie Palominoocytes/100 WBC (Bld)5.8 %Normal1.7-12.0[facility] Comment on above:Performed By: #### CBC #### [facility] [address] [place] [address] Dr. Ashlie Olsen #7.3 103/ulCritically high1.4-6.5The [facility] Comment on above:Performed By: #### CBC #### [facility] [address] [place] [address] Dr. Ashlie Quiñonesutrophils/100 WBC (Bld)59.6 %Zjgykk01.0-75.0The [facility] HospitalComment on above:Performed By: #### CBC #### [facility] [address] [place] [address] Dr. Ashlie Lantigualet mean volume (Bld) [Entitic vol]11.7 fLNormal9.5-13.5The [facility] HospitalComment on above:Performed By: #### CBC #### [facility] [address] [place] [address] Dr. Ashlie HillsPLT117 103/ulCritically mxx331-202Ldv [facility] HospitalComment on above:Performed By: #### CBC #### [facility] [address] [place] [address] Dr. Ashlie HillsRBC5.95 106/ulCritically high4.20-5.40The [facility] Comment on above:Performed By: #### CBC #### [facility] [address] [address] [address] Ashlie HillsWBC12.3 103/ulCritically high4.0-11.0The [facility] Hospitalment on above:Performed By: #### CBC #### [facility] [address] [address] [address] Ashlie HillsCT ABD/PELV W CONon [id number] ABD/PELV W CONEXAM: CT ABD/PELV W CON [...] Electronically authenticated by: RICCO PICKARD Date: 2022-10-05 13:13[facility] URINE PROFILEon [id number] Ql (U)NegativeNormal NEGATIVEThe [facility] County HospitalComment on above:Performed By: #### POCGLUC #### [facility] [address] [place] [address] Dr. Ashlie HillsClarity (U)CLEARNormalCLEARThe [facility] HospitalComment on above: Performed By: #### POCGLUC #### [facility] [address] [address] [address] Ashlie Prescottlor (U)YELLOWNormalYELLOWPremier Health Miami Valley Hospital SouthComment on above: Performed By: #### POCGLUC #### [facility] [address] [place] [address] Dr. Ashlie Clayton micrscopic examination will be performed if indicated. NormalMercy Health Kings Mills Hospital HospitalComment on above:Performed By: #### POCGLUC #### [facility] [address] [address] [address] Ashlie Rutledgeose Ql (U)NegativeNormalNEGATIVEPremier Health Miami [facility] Hospital SouthComment on above:Performed By: #### POCGLUC #### [facility] [address] [place] [address] Dr. Ashlie HillsHemoglobin Ql (U)NegativeNormalNEGATIVEPremier Health [facility] Comment on above:Performed By: #### POCGLUC #### [facility] [address] [place] [address] Dr. Ashlie HillsKetones Ql (U)NegativeNormalNEGATIVEPremier Health [facility] Hospital SouthComment on above:Performed By: #### POCGLUC #### [facility] [address] [place] [address] Dr. Ashlie HillsLEUKOCYTESNegativeNormalNEGATIVEPremier Health [facility] Hospital SouthComselect specialty hospital on above:Performed By: #### POCGLUC #### [facility] [address] [place] [address] Dr. Ashlie HillsNitrite Ql (U)NegativeNormalNEGATIVEPremier Health [facility] Hospital SouthComment on above:Performed By: #### POCGLUC #### [facility] [address] [place] [address] Dr. Ashlie HillspH (U)6.0 [pH]Normal5-9[facility] SouthComment on above: Performed By: #### POCGLUC #### [facility] [address] [place] [address] Dr. Ashlie HillsProtein (U) [Mass/Vol]100 mg/dLAbnormalNEGATIVE/ TRACEMercy Health Kings Mills Hospital HospitalComment on above:Performed By: #### POCGLUC #### [facility] [address] [address] [address] Ashlie HillsSPEC GRAVITY1.398Sotzty7.005-<=1.025The [facility] HospitalComment on above:Performed By: #### POCGLUC #### [facility] [address] [address] [address] Ashlie Sullivan MICRO INDINDICATEDNormalThe [facility] HospitalComment on above: Performed By: #### POCGLUC #### [facility] [address] [address] [address] Ashlie Metzbilinogen Qn (U)1.0 {Little'U}/dLNormal0.2 - 1.0The [facility] HospitalComment on above:Performed By: #### POCGLUC #### [facility] [address] [place] [address] Dr. Ashlie HillsLIPASEon [id number] [Catalytic activity/Vol]1771.0 U/L Critically high73.0-393.0The [facility] HospitalComment on above:Performed By: #### CBC #### [facility] [address] [place] [address] Dr. Ashlie Sewell HCG QUALon [id number], QUALNegativeNormalNEGATIVE The [facility] HospitalComment on above:Performed By: #### POCGLUC #### [facility] [address] [place] [address] Dr. Ashlie HillsPROF 14(COMP METB)on [id number] [Mass/Vol]3.2 g/dL Critically low3.4-5.0The [facility] HospitalComment on above:Performed By: #### CBC #### [facility] [address] [place] [address] Dr. Ashlie HillsAlbumin/Globulin [Mass ratio]0.7 {ratio}NormalThe [facility] on above:Performed By: #### CBC #### [facility] [address] [place] [address] Dr. Ashlie MoralesP [Catalytic activity/Vol]70 U/SCgigts98-561Uaj [facility] HospitalComment on above:Performed By: #### CBC #### [facility] [address] [address] [address] Ashlie MoralesT [Catalytic activity/Vol]11 U/LCritically iqb08-05Cea [facility] HospitalComment on above:Performed By: #### CBC #### [facility] [address] [address] [address] Ashlie Hassanon gap [Moles/Vol]10.3 mmol/LNormalThe [facility] Comment on above:Performed By: #### CBC #### [facility] [address] [address] [address] Ashlie HillsAST [Catalytic activity/Vol]11 U/LCritically rjn36-22Uxj [facility] HospitalComment on above:Performed By: #### CBC #### [facility] [address] [address] [address] Ashlie HillsBilirubin [Mass/Vol]0.9 mg/dLNormal0.2-1.0[facility] Comment on above:Performed By: #### CBC #### [facility] [address] [address] [address] Ashlie HillsCalcium [Mass/Vol]9.3 mg/dLNormal8.5-10.1[facility] Comment on above:Performed By: #### CBC #### [facility] [address] [address] [address] Ashlie HillsChloride [Moles/Vol]105 mmol/PXttpcw92-125Tzg [facility] Comment on above:Performed By: #### CBC #### [facility] [address] [address] [address] Ashlie HillsCO2 [Moles/Vol]30.6 mmol/LEopmrn95.0-32.0The [facility] Comment on above:Performed By: #### CBC #### [facility] [address] [address] [address] Ashlie HillsCreatinine [Mass/Vol]0.62 mg/dLNormal0.55-1.02The [facility] [place] [facility]ment on above:Performed By: #### CBC #### [facility] [address] [address] [address] Ashlie GrahamGFR-AF EGYPTIAN>60Normal>=60The [facility] HospitalComment on above:Performed By: #### CBC #### [facility] [address] [address] [address] Ashlie GrahamGFR-NON AF EGYPTIAN>60Normal>=60The [facility] HospitalComment on above:Performed By: #### CBC #### [facility] [address] [address] [address] Ashlie HillsGlobulin (S) [Mass/Vol]4.6 g/dLNormalThe [facility] HospitalComselect specialty hospital on above:Performed By: #### CBC #### [facility] [address] [address] [address] Ashlie HillsGlucose [Mass/Vol]85 mg/dECnbybc37-837MmhPremier Health [facility] Comment on above:Performed By: #### CBC #### [facility] [address] [address] [address] Ashlie HillsPotassium [Moles/Vol]3.9 mmol/LNormal3.5-5.1The [facility] Comment on above:Performed By: #### CBC #### [facility] [address] [address] [address] Ashlie HillsProtein [Mass/Vol]7.8 g/dLNormal6.4-8.2[facility] Comment on above:Performed By: #### CBC #### [facility] [address] [address] [address] Ashlie HillsSodium [Moles/Vol]142 mmol/OGfylgm401-005Efw [facility] Comment on above:Performed By: #### CBC #### [facility] [address] [address] [address] Ashlie HillsUrea nitrogen [Mass/Vol]12.0 mg/dLNormal7.0-18.0[facility] [place] [facility]ment on above:Performed By: #### CBC #### [facility] [address] [address] [address] Ashlie HillsUrea nitrogen/Creatinine [Mass ratio]19.4 mg/mgNoCincinnati Children's Hospital Medical CenterComselect specialty hospital on above:Performed By: #### CBC #### [facility] [address] [address] [address] Ashlie Recinos MICROSCOPIC ONLYon [id number]K SEEN [facility]Comselect specialty hospital on above:Performed By: #### POCGLUC #### [facility] [address] [address] [address] Ashlie Cortez identified Cx Nom (U)NOT INDICATEDKettering Health DaytonComselect specialty hospital on above:Performed By: #### POCGLUC #### [facility] [address] [place] [address] Dr. Ashlie Thibodeaux SEENNormalNONE SEENOhio [facility] East Hospital on above:Performed By: #### POCGLUC #### [facility] [address] [place] [address] Dr. Ashlie Boyerystals LM Nom (Urine sed)NONE SEENNormalNONE SEENOhio State East Hospital on above:Performed By: #### POCGLUC #### [facility] [address] [place] [address] Dr. Dailey ChangEpithelial cells LM Ql (Urine sed)MODERATEAbnormalNONE SEEN /RARE The [facility]Com[facility] on above:Performed By: #### POCGLUC #### [facility] [address] [place] [address] Dr. Ashlie SuarezCOUSNONE SEENNormalNONE SEENOhio State East Hospital on above:Performed By: #### POCGLUC #### [facility] [address] [place] [address] Dr. Ashlie PruettZecihHVC5-1Udaxvt3-1Mys [facility] on above:Performed By: #### POCGLUC #### [facility] [address] [place] [address] Dr. Ashlie BhaktaBC0-2AbnormalNONE SEENCincinnati Shriners Hospital [facility] on above: Performed By: #### POCGLUC #### [facility] [address] [address] [address] Ashlie Tapia-19 PCR ([facility])on [id number]-CoV-2 (COVID-19) RNA MADDY+probe Ql (Unsp spec)DetectedAbnormalNOT DETECTEDThe [facility] on above:Result Comment: This test is not yet approved or cleared by the [place] FDA. When there are no FDA-approved or cleared tests available, and other criteria are met, FDA can make tests available under an emergency access mechanism called an Emergency Use Authorization (EUA). The EUA for this test is supported by the Business Law Instructor of Health and Human Service's declaration that [...] longer be used).Performed By: #### CVDAGS #### [facility] [address] [place] [address] Dr. Ashlie Centeno AND B AGon [id number] Hospital on above:Result Comment: Negative for Flu A protein angiten. Infection due to Flu A cannot be ruled out. FluA angiten in the sample may be below the detection limit of the test.Performed By: #### INFLUAB #### [facility] [address] [address] [address] Ashlie HillsINFLUBNEGHSEE [facility] on above: Result Comment: Negative for Flu B protein antigen. Infection due to Flu B cannot be ruled out. FluB antigen in the sample may be below the detection limit of the test.Performed By: #### INFLUAB #### [facility] [address] [place] [address] Dr. Ashlie Centeno AGNegativeNormalNEGATIVE SEE COMMENTThe [facility] HospitalComment on above:Performed By: #### INFLUAB #### [facility] [address] [place], [place] [address] Dr. Ashlie Shaffer AGNegativeNormalNEGATIVE SEE COMMENTThe [facility] HospitalComment on above:Performed By: #### INFLUAB #### [facility] [address] [place], [place] [address] Dr. Ashlie HillsCT ABD/PELV W CONon [id number] ABD/PELV W CONINDICATION: Disorder of adrenal gland [...] dating back to at least 10/21/2018, unchanged. https://www.ncbi.nlm.nih.gov/pmc/articles/QVY2616689/ Electronically authenticated by: COLLIN HUERTAS Date: 2022-07-27 14:56[facility] Health DaytonCREATININEon [id number] [Mass/Vol]0.81 mg/dLNormal 0.55-1.02[facility] SouthComment on above:Performed By: #### CBC #### [facility] [address] [address] [address] Ashlie GrahamGFR-AF EGYPTIAN>60Normal>=60The [facility] on above:Performed By: #### CBC #### [facility] [address] [address] [address] Ashlie GrahamGFR-NON AF EGYPTIAN>60Normal>=60The [facility] HospitalComment on above:Performed By: #### CBC #### [facility] [id number] Ashlie Radford LOW EXT W CONT LTon [id number] LOW EXT W CONT LTEXAMINATION: CT LOW [...] Electronically authenticated by: PATRICIA VELOZ Date: 2022-07-18 14:58NoCincinnati Children's Hospital Medical CenterXR KNEE LT 1_2 Von 95-98-1087AI KNEE LT 1_2 VEXAM: XR KNEE LT [...] Electronically authenticated by: HATTIE BAUTISTA Date: 2022-07-18 12:00[facility] DaytonCovid-19 PCR (CVDTBH)on [id number]-CoV-2 (COVID-19) RNA MADDY+probe Ql (Unsp spec)Not detectedNormalNOT DETECTEDPrem[facility] Comment on above:Result Comment: This test is not yet approved or cleared by the [place] FDA. When there are no FDA-approved or cleared tests available, and other criteria are met, FDA can make tests available under an emergency access mechanism called an Emergency Use Authorization (EUA). The EUA for this test is supported by the [place] of Health and Human Service's (HHS's) declaration [...] consistent with SARS-CoV-2.Performed By: #### CBC #### [facility] [address] [place] [address] Dr. Ashlie Centeno AND [facility] 26-47-4402HZZHFFPWEGJAHAultman HospitalComment on above:Result Comment: Negative for Flu A protein angiten. Infection due to Flu A cannot be ruled out. FluA angiten in the sample may be below the detection limit of the test.Performed By: #### CBC #### [facility] [address] [place] [address] Dr. Ashlie VelasquezUBNEGDEDRICK [facility] on above: Result Comment: Negative for Flu B protein antigen. Infection due to Flu B cannot be ruled out. FluB antigen in the sample may be below the detection limit of the test.Performed By: #### CBC #### [facility] [address] [place] [address] Dr. Ashlie Centeno AGNegativeNormalNEGATIVE SEE COMMENTThe [facility] on above:Performed By: #### CBC #### [facility] [address] [place] [address] Dr. Ashlie Lockhart B AGNegativeNormalNEGATIVE SEE COMMENTThe [facility] on above:Performed By: #### CBC #### [facility] [address] [place] [address] Dr. Ashlie HillsPOINT OF CARE GLUCOSEon 70-72-4327Yifnnxx [Mass/Vol]108 mg/dL Critically suhr19-361Zra [facility] HospitalComselect specialty hospital on above:Performed By: #### CBC #### [facility] [address] [place] [address] Dr. Ashlie HillsANA by IFAon 37-63-2665Hgsbeunnyye Antibodies, IFANegativeNormal The [facility] on above:Result Comment: Negative <1:80 Borderline 1:80 Positive >1:80 ICAP nomenclature: AC-0 For more information about Hep-2 cell patterns use ANApatterns.org, the official website for the International Consensus on Antinuclear Antibody (RAGHU) Patterns (ICAP).Performed By: #### ANAIFA #### [facility] [address] [place] [address] Dr. Ashlie HillsIMMUNOFIXATION (TREVON), URINEon [id number] Interpretation:U CommentNormalThe [facility] on above:Result Comment: No monoclonality detected.Performed By: #### CBC #### [facility] [address] [place] [address] Dr. Ashlie HillsIMMUNOFIXATION(TREVON),PROTEIN ELEC(PE),FREon [id number] [Mass/Vol]3.0 g/dLNormal2.9-4.4The [facility] [place] [facility] Hospitalment on above:Performed By: #### INFLUAB #### [facility] [address] [place] [address] Dr. Ashlie HillsAlbumin/Globulin [Mass ratio]0.8 {ratio}Normal0.7-1.7The [facility] on above:Performed By: #### INFLUAB #### [facility] [address] [place] [address] Dr. Ahslie HillsYpmswJewer-3-Bqpitipc6.3 g/dLNormal0.0-0.4ThMadison HealthComment on above:Performed By: #### INFLUAB #### [facility] [address] [place] [address] Dr. Ashlie HillsKksavLcshs-3-Ludgulst6.0 g/dLNormal0.4-1.0[facility] SouthComment on above:Performed By: #### INFLUAB #### [facility] [address] [place] [address] Dr. Ashlie HillsBeta Globulin1.8 g/dLCritically high0.7-1.3TSt. Charles Hospital Comment on above:Performed By: #### INFLUAB #### [facility] [address] [place] [address] Dr. Ashlie Skelton [place] Lt Chains,S45.2 mg/LCritically high3.3-19.4ThMadison HealthComment on above:Performed By: #### INFLUAB #### [facility] [address] [place] [address] Dr. Ashlie Skelton Lambda Lt Chains,S40.3 mg/LCritically high5.7-26.3TSt. Charles HospitalComment on above:Performed By: #### INFLUAB #### [facility] [address] [place] [address] Dr. Ashlie HillsGamma Globulin0.8 g/dLNormal0.4-1.8The [facility] HospitalComment on above:Performed By: #### INFLUAB #### [facility] [address] [place] [address] Dr. Ashlie HillsGlobulin (S) [Mass/Vol]3.9 g/dLNormal2.2-3.9[facility] Comment on above:Performed By: #### INFLUAB #### [facility] [address] [place] [address] Dr. Ashlie HillsImmunofixation Result, SerumCommentNoCincinnati Children's Hospital Medical Center Comment on above:Result Comment: No monoclonality detected.Performed By: #### INFLUAB #### [facility] [address] [address] [address] Ashlie HillsImmunoglobulin A, Qn, Kgjtx970 mg/dLCritically uhiz96-874Wqf [facility] [place] [facility] Hospitalment on above:Performed By: #### INFLUAB #### [facility] [address] [place] [address] Dr. Ashlie HillsImmunoglobulin G, Qn, Mivwe854 mg/wFJoxklv690-8605Kic [facility] HospitalComselect specialty hospital on above:Performed By: #### INFLUAB #### [facility] [address] [place] [address] Dr. Ashlie HillsImmunoglobulin M, Qn, Serum39 mg/qHSpbqia54-318Tzh [facility] HospitalComselect specialty hospital on above:Performed By: #### INFLUAB #### [facility] [address] [place] [address] Dr. Ashlie HillsKappa/Lambda Ratio, S1.96Mkzcke3.26-1.65[facility] Comment on above:Performed By: #### INFLUAB #### [facility] [address] [place] [address] Dr. Ashlie HillsM-SpikeNot ObservedNormalNot ObservedThe [facility] HospitalComselect specialty hospital on above:Performed By: #### INFLUAB #### [facility] [address] [place] [address] Dr. Ashlie Bradford.NormalThe [facility] on above:Performed By: #### INFLUAB #### [facility] [address] [place] [address] Dr. Ashlie Fletcher note:CommentNormalThe [facility] on above: Result Comment: Protein electrophoresis scan will follow via computer, mail, or it software developer delivery.Performed By: #### INFLUAB #### [facility] [address] [place] [address] Dr. Ashlie HillsProtein [Mass/Vol]6.9 g/dLNormal6.0-8.5ThMadison Health Comment on above:Performed By: #### INFLUAB #### [facility] [address] [place] [address] Dr. Ashlie HillsC-PEPTIDE, SERUMon 16-92-5162I-Peptide, Serum3.1 ng/mLNormal 1.1-4.4The [facility] HospitalComment on above:Result Comment: C-Peptide reference interval is for fasting patients.Performed By: #### CPEPT #### [facility] [address] [place] [address] Dr. Ashlie Sandoval B SURFACE ANTIGEN SCREENon 15-60-0470QLiVu ScreenNegative NormalNegativeThe [facility] HospitalComment on above:Performed By: #### CBC #### [facility] [address] [place] [address] Dr. Ashlie ChuaTIS C VIRUS AB W/ REFLEX QUANTon [id number] AB<0.1Normal 0.0-0.9The [facility] [place] [facility] Hospitalment on above:Performed By: #### INFLUAB #### [facility] [address] [place] [address] Dr. Ashlie HillsInterpretation:CommentNormalThe [facility] HospitalComment on above:Result Comment: Negative Not infected with HCV, unless recent infection is suspected or other evidence exists to indicate HCV infection.Performed By: #### INFLUAB #### [facility] [address] [place] [address] Dr. Ashlie HillsMICROALBUMIN/ CREATININE RATIOon 17-64-7328Rhlnvsu, Jpfon465.4 ug/mLNormalNot Estab.The [facility] HospitalComselect specialty hospital on above:Performed By: #### CBC #### [facility] [address] [place] [address] Dr. Ashlie HillsAlbumin/ Creatinine Rrlpq858 mg/g creatCritically high0-29The [facility] HospitalComment on above:Result Comment: Normal: 0 - 29 Moderately increased: 30 - 300 Severely increased: >300Performed By: #### CBC #### [facility] [address] [place] [address] Dr. Ashlie HillsCreatinine, Yybep218.9 mg/dLNormalNot Estab.The [facility] Comment on above:Performed By: #### CBC #### [facility] [address] [address] [address] Ashlie Ramsey 25-[place] LABCORPon 51-93-5549Fvhbhjb D, 25-Hydroxy<4.0 Critically low30.0-100.0The [facility] on above:Result Comment: Vitamin D deficiency has been defined by the [employer] and an Endocrine Society practice guideline as a level of serum 25-OH vitamin D less than 20 ng/mL (1,2). The Endocrine Society went on to further define vitamin D insufficiency as a level between 21 and 29 ng/mL (2). 1. IOM ([employer]). 2010. Dietary reference intakes for calcium and D. [place]: The National Academies Press. 2. Lynda MF, Keely OLIVEROS, Leandra LOPEZ, et al. Evaluation, treatment, and prevention of vitamin D deficiency: an Endocrine Society clinical practice guideline. JCEM. 2010; 96(7):1911-30.Performed By: #### CBC #### [facility] [address] [place] [address] Dr. Ashlie HillsGLYCOHEMOGLOBIN A1Con 09-65-7062XEJ RECOMMENDATIONSEE BELOWNormal The [facility] HospitalComment on above:Result Comment: ADA RECOMMENDED LIMIT 4.0 - 6.0 ADA THERAPEUTIC TARGET < 7.0 ACTION SUGGESTED > 7.0Performed By: #### CVDAGS #### [facility] [address] [address] [address] Ashlie HillsGlucose [Mass/Vol]295 mg/dLNormalThe [facility] HospitalComment on above:Performed By: #### CVDAGS #### [facility] [address] [address] [address] Ashlie HillsHbA1c (Bld) [Mass fraction]11.9 %Critically high4.5-6.2The [facility] HospitalComment on above:Performed By: #### CVDAGS #### [facility] [address] [place] [address] Dr. Ashlie HillsHEMOGRAM AND PLATELon 60-46-1539Kbhkprjrlf (Bld) [Volume fraction]56.3 %Critically high36.0-48.0The [facility] HospitalComment on above: Performed By: #### CVDAGS #### [facility] [address] [place] [address] Dr. Ashlie HillsHemoglobin (Bld) [Mass/Vol]18.0 g/dLCritically high12.0-16.0The [facility] HospitalComment on above:Performed By: #### CVDAGS #### [facility] [address] [place] [address] Dr. Ashlie MckeonH (RBC) [Entitic mass]29.5 vnNykdtr77.7-34.0The [facility] HospitalComment on above:Performed By: #### CVDAGS #### [facility] [address] [place] [address] Dr. Ashlie Mckeon (RBC) [Mass/Vol]32.0 g/jSXwdcfk72.9-35.2The [facility] HospitalComment on above:Performed By: #### CVDAGS #### [facility] [address] [place] [address] Dr. Ashlie MckeonV (RBC) [Entitic vol]92.1 kLVokeox46.0-99.0The [facility] HospitalComment on above:Performed By: #### CVDAGS #### [facility] [address] [place] [address] Dr. Ashlie HillsPLT123 103/ulCritically plq060-526Luf [facility] HospitalComment on above:Performed By: #### CVDAGS #### [facility] [address] [place] [address] Dr. Ashlie HillsRBC6.11 106/ulCritically high4.20-5.40The [facility] Comment on above:Performed By: #### CVDAGS #### [facility] [address] [place] [address] Dr. Ashlie HillsWBC16.4 103/ulCritically high4.0-11.0The [facility] HospitalComment on above:Performed By: #### CVDAGS #### [facility] [address] [place], [place] [address] Dr. Ashlie OmerID PROFILEon 32-96-0205EITM-HDL RATIO NORMSSelect Medical Specialty Hospital - ColumbusComment on above:Result Comment: 3.3 - 4.4 LOW RISK 4.4 - 7.1 AVERAGE RISK 7.1 - 11.0 MODERATE RISK >11.0 HIGH RISKPerformed By: #### CVDAGS #### [facility] [address] [place] [address] Dr. Ashlie HillsCholesterol [Mass/Vol]159 mg/dLNormal<=200[facility] Comment on above:Performed By: #### CVDAGS #### [facility] [address] [place] [address] Dr. Ashlie HillsCholesterol in HDL [Mass/Vol]40 mg/dYGjrmgz84-36VfkPremier Health Miami Valley Hospital SouthComment on above:Performed By: #### CVDAGS #### [facility] [address] [place] [address] Dr. Ashlie HillsCholesterol in LDL [Mass/Vol]81.8 mg/dLKettering Health DaytonComment on above:Performed By: #### CVDAGS #### [facility] [address] [place] [address] Dr. Ashlie Lopezesteroralia.total/Cholesterol in HDL [Mass ratio]4.0 {ratio} NormalPremier Health Miami Valley Hospital SouthComment on above:Performed By: #### CVDAGS #### [facility] [address] [place] [address] Dr. Ashlie Potts NORMAL> or = 60 mg/dl - LOW CARDIOVASCULAR RISK <40 mg/dl - HIGH CARDIOVASCULAR RISKKettering Health DaytonComment on above:Performed By: #### CVDAGS #### [facility] [address] [place] [address] Dr. Ashlie HillsLDL CALC NORMALSEE [facility] City HospitalComment on above:Result Comment: <100 mg/dl OPTIMAL 100 - 129 mg/dl NEAR OR ABOVE OPTIMAL 130 - 159 mg/dl BORDERLINE HIGH 160 - 189 mg/dl HIGH >190 mg/dl VERY HIGH Performed By: #### CVDAGS #### [facility] [address] [address] [address] Ashlie HillsTriglyceride [Mass/Vol]186 mg/dLCritically high<=150The [facility] HospitalComment on above:Performed By: #### CVDAGS #### [facility] [address] [address] [address] Ashlie HillsVLDL CALC37.2 mg/dLNormalThe [facility] HospitalComment on above: Performed By: #### CVDAGS #### [facility] [address] [address] [address] Ashlie Rhodes FUNCTION PANELon 90-50-0471Jubvyuf [Mass/Vol]3.1 g/dL Critically low3.4-5.0The [facility] HospitalComment on above:Performed By: #### CBC #### [facility] [address] [address] [address] Ashlie HillsCalcium [Mass/Vol]9.2 mg/dLNormal8.5-10.1The [facility] Comment on above:Performed By: #### CBC #### [facility] [address] [address] [address] Ashlie HillsChloride [Moles/Vol]102 mmol/IIwieoe30-242Xsu [facility] Comment on above:Performed By: #### CBC #### [facility] [address] [address] [address] Ashlie HillsCO2 [Moles/Vol]31.9 mmol/VPjajho96.0-32.0The [facility] Comment on above:Performed By: #### CBC #### [facility] [address] [address] [address] Ashlie HillsCreatinine [Mass/Vol]0.68 mg/dLNormal0.55-1.02The [facility] HospitalComment on above:Performed By: #### CBC #### [facility] [address] [address] [address] Dailey ChangEGFR-AF EGYPTIAN>60Normal>=60The [facility] HospitalComment on above:Performed By: #### CBC #### [facility] [address] [address] [address] Ashlie GrahamGFR-NON AF EGYPTIAN>60Normal>=60The [facility] HospitalComment on above:Performed By: #### CBC #### [facility] [address] [address] [address] Ashlie HillsGlucose [Mass/Vol]131 mg/dLCritically cimv25-290Vqm [facility] HospitalComment on above:Performed By: #### CBC #### [facility] [address] [address] [address] Ashlie HillsPhosphate [Mass/Vol]4.0 mg/dLNormal2.6-4.7The [facility] Comment on above:Performed By: #### CBC #### [facility] [address] [address] [address] Ashlie HillsPotassium [Moles/Vol]4.0 mmol/LNormal3.5-5.1[facility] Comment on above:Performed By: #### CBC #### [facility] [address] [address] [address] Ashlie HillsSodium [Moles/Vol]141 mmol/HHgijnx037-960LisPremier Health [facility] Comment on above:Performed By: #### CBC #### [facility] [address] [address] [address] Ashlie HillsUrea nitrogen [Mass/Vol]17.0 mg/dLNormal7.0-18.0The [facility] HospitalComment on above:Performed By: #### CBC #### [facility] [address] [address] [address] Ashlie HillsUA RANDOM W/MICROSCOPICon 88-67-7285ANAGFIMPVUQP SEENNormalNONE SEENThe [facility] HospitalComment on above:Performed By: #### INFLUAB #### [facility] [address] [address] [address] Ashlie HillsBilirubin Ql (U)NegativeNormalNEGATIVEThe [facility] Comment on above:Performed By: #### INFLUAB #### [facility] [address] [address] [address] Ashlie HillsCASTNONE SEENNormalNONE SEENPremier Health Miami Valley Hospital SouthComment on above:Performed By: #### INFLUAB #### [facility] [address] [address] [address] Ashlie Chilel (U)CLEARNormalCLEARPremier Health Miami Valley Hospital SouthComment on above: Performed By: #### INFLUAB #### [facility] [address] [place] [address] Dr. Ashlie Prescottlor (U)YELLOWNormalYELLOWPremier Health Miami Valley Hospital SouthComment on above: Performed By: #### INFLUAB #### [facility] [address] [place] [address] Dr. Ashlie HillsCrystals LM Nom (Urine sed)NONE SEENNormalNONE SEENPremier Health Miami Valley Hospital SouthComment on above:Performed By: #### INFLUAB #### [facility] [address] [place] [address] Dr. Dailey ChangEpithelial cells LM Ql (Urine sed)FEWAbnormalNONE SEEN /RAREPremier Health Miami Valley Hospital SouthComment on above:Performed By: #### INFLUAB #### [facility] [address] [place] [address] Dr. Ashlie HillsGlucose Ql (U)NegativeNormalNEGATIVEPremier Health Miami Valley Hospital SouthComment on above:Performed By: #### INFLUAB #### [facility] [address] [place] [address] Dr. Ashlie HillsHemoglobin Ql (U)NegativeNormalNEGATIVESelect Medical Specialty [facility] on above:Performed By: #### INFLUAB #### [facility] [address] [place] [address] Dr. Ashlie HillsKetones Ql (U)NegativeNormalNEGATIVEPremier Health Miami Valley Hospital SouthComment on above:Performed By: #### INFLUAB #### [facility] [address] [place] [address] Dr. Ashlie HillsLEUKOCYTESNegativeNormalNEGATIVEPremier Health Miami Valley Hospital SouthComment on above:Performed By: #### INFLUAB #### [facility] [address] [place] [address] Dr. Ashlie SuarezCOUSCHAD SEENNormalNONE SEENThe [facility] HospitalComment on above:Performed By: #### INFLUAB #### [facility] [address] [place] [address] Dr. Ashlie Santostrite Ql (U)NegativeNormalNEGATIVEThe [facility] HospitalComment on above:Performed By: #### INFLUAB #### [facility] [address] [place] [address] Dr. Ashlie HillspH (U)5.5 [pH]Normal5-9The [facility] HospitalComment on above: Performed By: #### INFLUAB #### [facility] [address] [place] [address] Dr. Ashlie HillsDfagxUTH9-9Nkkpzc1-5Jft [facility] HospitalComment on above:Performed By: #### INFLUAB #### [facility] [address] [place] [address] Dr. Ashlie HillsSPEC GRAVITY>=1.120Qdhvjhwr5.005-<=1.025The [facility] Comment on above:Performed By: #### INFLUAB #### [facility] [address] [place] [address] Dr. Ashlie Vaughn JRLFBSD456 mg/dlAbnormalNEGATIVE/ TRACEThe [facility] Comment on above:Performed By: #### INFLUAB #### [facility] [address] [place] [address] Dr. Ashlie Metzbilinogen Qn (U)0.2 {Little'U}/dLNormal0.2 - 1.0The [facility] HospitalComment on above:Performed By: #### INFLUAB #### [facility] [address] [place] [address] Dr. Ashlie HillsWBCNONTracey SEENNormalNONE SEENThe [facility] HospitalComment on above: Performed By: #### INFLUAB #### [facility] [address] [place] [address] Dr. Ashlie Christine ACID SERUMon 40-00-0906Uyjtx [Mass/Vol]5.0 mg/dLNormal 2.6-6.0The [facility] HospitalComment on above:Performed By: #### INFLUAB #### [facility] [address] [address] [address] Ashlie Recinos T PROTEIN CREAT RATIOon 61-68-0856Nquxide (U) [Mass/Vol] 77.9 mg/dLCritically high<=12.0The [facility] HospitalComment on above:Performed By: #### CVDAGS #### [facility] [address] [place] [address] Dr. Ashlie Sullivan PROT CREAT RAT0.44NormalThe [facility] HospitalComment on above: Performed By: #### CVDAGS #### [facility] [address] [place] [address] Dr. Ashlie Recinos SEUNT419.15 mg/mBSqnhof18.00-300.00[facility] Comment on above:Performed By: #### CVDAGS #### [facility] [address] [place] [address] Dr. Ashlie OrdoñezLTREGINO URINEon 77-12-6861PIVYPUR URINECulture Observations: GREATER THAN TWO ORGANISMS PRESENT, HEAVILY MIXED. PLEASE RESUBMIT CLEAN CATCH MID-STREAM URINE IF CLINICALLY INDICATED.NormalThe [facility] HospitalComment on above:Performed By: #### INFLUAB #### [facility] [address] [place] [address] Dr. Ashlie VernonC AUTO DIFFon [id number] #0.1 103/ulNormal0.0-0.1The [facility] HospitalComment on above:Performed By: #### CBC #### [facility] [address] [place] [address] Dr. Ashlie HillsBasophils/100 WBC (Bld)0.5 %Normal0.2-2.0[facility] Comment on above:Performed By: #### CBC #### [facility] [address] [place] [address] Dr. Ashlie Mcintosh #0.4 103/ulNormal0.0-0.7The [facility] HospitalComment on above: Performed By: #### CBC #### [facility] [address] [address] [address] Ashlie Grahamosinophils/100 WBC (Bld)2.4 %Normal0.9-7.0[facility] Comment on above:Performed By: #### CBC #### [facility] [address] [place] [address] Dr. Ashlie Grahamrythrocyte distribution width (RBC) [Ratio]14.1 %Xqbcny39.0-15.0 [facility] Hospital SouthComment on above:Performed By: #### CBC #### [facility] [address] [place] [address] Dr. Ashlie HillsHematocrit (Bld) [Volume fraction]55.9 %Critically high36.0-48.0 The [facility] HospitalComment on above:Performed By: #### CBC #### [facility] [address] [place] [address] Dr. Ashlie HillsHemoglobin (Bld) [Mass/Vol]17.9 g/dLCritically high12.0-16.0[facility] SouthComment on above:Performed By: #### CBC #### [facility] [address] [place] [address] Dr. Ashlie Hunter #0.06 10e3/ulCritically high0.00-0.03The [facility] Comment on above:Performed By: #### CBC #### [facility] [address] [place] [address] Dr. Ashlie Hunter %0.4 %Normal0.0-0.5ThMadison HealthComment on above: Performed By: #### CBC #### [facility] [address] [place] [address] Dr. Ashlie Swenson #5.8 103/ulCritically high1.2-3.8The [facility] Comment on above:Performed By: #### CBC #### [facility] [address] [place] [address] Dr. Ashlie Jademphocytes/100 WBC (Bld)35.4 %Icqqyu20.5-60.0The [facility] HospitalComment on above:Performed By: #### CBC #### [facility] [address] [place] [address] Dr. Ashlie GhoshUAL DIFF REQNONormalThe [facility] HospitalComment on above: Performed By: #### CBC #### [facility] [address] [place] [address] Dr. Ashlie Mckeon (RBC) [Entitic mass]29.4 vaHictkx59.7-34.0The [facility] HospitalComment on above:Performed By: #### CBC #### [facility] [address] [place] [address] Dr. Ashlie Mckeon (RBC) [Mass/Vol]32.0 g/nLNamsmt64.9-35.2The [facility] HospitalComment on above:Performed By: #### CBC #### [facility] [address] [place] [address] Dr. Ashlie Mckeon (RBC) [Entitic vol]91.8 sBQdtofg88.0-99.0The [facility] HospitalComment on above:Performed By: #### CBC #### [facility] [address] [place] [address] Dr. Ashlie Killian #0.8 103/ulNormal0.3-0.8The [facility] HospitalComment on above:Performed By: #### CBC #### [facility] [address] [place] [address] Dr. Ashlie Palominoocytes/100 WBC (Bld)4.8 %Normal1.7-12.0[facility] Comment on above:Performed By: #### CBC #### [facility] [address] [place] [address] Dr. Ashlie Olsen #9.3 103/ulCritically high1.4-6.5The [facility] Comment on above:Performed By: #### CBC #### [facility] [address] [address] [address] Ashlie HillsNeutrophils/100 WBC (Bld)56.5 %Kusjke37.0-75.0The [facility] HospitalComment on above:Performed By: #### CBC #### [facility] [address] [address] [address] Ashlie HillsPlatelet mean volume (Bld) [Entitic vol]12.9 fLNormal9.5-13.5The [facility] HospitalComment on above:Performed By: #### CBC #### [facility] [address] [address] [address] Ashlie HillsPLT127 103/ulCritically viz935-326Sxp [facility] HospitalComment on above:Performed By: #### CBC #### [facility] [address] [address] [address] Ashlie HillsRBC6.09 106/ulCritically high4.20-5.40The [facility] Comment on above:Performed By: #### CBC #### [facility] [address] [address] [address] Ashlie HillsWBC16.4 103/ulCritically high4.0-11.0The [facility] Hospitalment on above:Performed By: #### CBC #### [facility] [address] [address] [address] Ashlie HillsCT ABD/PELVIS WO CONon [id number] ABD/PELVIS WO CON Begin Addendum #1 Mildly [...] Severe right hip degenerative change.NormalThe [facility] URINE PROFILEon 99-61-8035Kurjtyzgt Ql (U) NegativeNormalNEGATIVEThe [facility] HospitalComment on above:Performed By: #### EVONNE CLAY #### [facility] [address] [place] [address] Dr. Ashlie Chilel (U)CLEARNormalCLEARThe [facility] HospitalComment on above: Performed By: #### KRISTINAR, UMICRO #### [facility] [address] [address] [address] Ashlie Roberts (U) ORANGEAbnormalYELLOWPremier Health Miami Valley Hospital SouthComment on above:Performed By: #### OBED, UMICRO #### [facility] [address] [address] [address] Ashlie Clayton micrscopic examination will be performed if indicated. NormalPremier Health Miami Valley Hospital SouthComment on above:Performed By: #### KRISTINAR, UMICRO #### [facility] [address] [address] [address] Ashlie HillsGlucose Ql (U)250 mg/dlAbnosentara albemarle medical centerNEGMadison Health Comment on above:Performed By: #### OBED, UMICRO #### [facility] [address] [address] [address] Ashlie HillsHemoglobin Ql (U)NegativermalNEGMadison Health Comment on above:Performed By: #### OBED, UMICRO #### [facility] [address] [address] [address] Ashlie Connor Ql (U)NegativeNormalNEGATIVEPremier Health Miami [facility] Hospital SouthComment on above:Performed By: #### OBED, UMICRO #### [facility] [address] [address] [address] Ashlie HillsLEUKOCYTESNegativeNormalNEGMadison HealthComment on above:Performed By: #### KRISTINAR, UMICRO #### [facility] [address] [address] [address] Ashlie Santostrite Ql (U)NegativeNormalNEGATIVEPremier Health Miami [facility] Hospital SouthComment on above:Performed By: #### ERUR, UMICRO #### [facility] [address] [address] [address] Ashlie HillspH (U)5.0 [pH]Normal5-9Prem[facility] SouthComment on above: Performed By: #### ERUR, UMICRO #### [facility] [address] [place] [address] Dr. Ashlie HillsProtein (U) [Mass/Vol]100 mg/dLAbnormalNEGATIVE/ TRACEThe [facility] HospitalComment on above:Performed By: #### MADELINE CLAYRO #### [facility] [address] [place] [address] Dr. Ashlie HillsSPEC GRAVITY>=1.421Rvueknhc1.005-<=1.025The [facility] Comment on above:Performed By: #### MADELINE CLAYRO #### [facility] [address] [place] [address] Dr. Ashlie Sullivan MICRO INDINDICATEDNoCincinnati Children's Hospital Medical CenterComment on above: Performed By: #### EVONNE CLAY #### [facility] [address] [place] [address] Dr. Ashlie Metzbilinogen Qn (U)1.0 {Little'U}/dLNormal0.2 - 1.0The [facility] HospitalComment on above:Performed By: #### EVONNE CLAY #### [facility] [address] [place] [address] Dr. Ashlie Jones CHEM 8 (BAS METB)on 74-53-3138Cqvpv gap [Moles/Vol]12.1 mmol/LNormalThe [facility] HospitalComment on above:Performed By: #### INFLUAB #### [facility] [address] [place] [address] Dr. Ashlie HillsCalcium [Mass/Vol]9.0 mg/dLNormal8.5-10.1[facility] Comment on above:Performed By: #### INFLUAB #### [facility] [address] [place] [address] Dr. Ashlie HillsChloride [Moles/Vol]101 mmol/COschpl84-264VpwPremier Health [facility] Comment on above:Performed By: #### INFLUAB #### [facility] [address] [place] [address] Dr. Ashlie HillsCO2 [Moles/Vol]29.1 mmol/NXytmyy02.0-32.0[facility] Comment on above:Performed By: #### INFLUAB #### [facility] [address] [place] [address] Dr. Ashlie HillsCreatinine [Mass/Vol]0.86 mg/dLNormal0.55-1.02The [facility] HospitalComment on above:Performed By: #### INFLUAB #### [facility] [address] [place] [address] Dr. Dailey ChangEGFR-AF EGYPTIAN>60Normal>=60The [facility] HospitalComment on above:Performed By: #### INFLUAB #### [facility] [address] [place] [address] Dr. Ashlie GrahamGFR-NON AF EGYPTIAN>60Normal>=60The [facility] HospitalComment on above:Performed By: #### INFLUAB #### [facility] [address] [place] [address] Dr. Ashlie HillsGlucose [Mass/Vol]236 mg/dLCritically jelh83-612Ayy [facility] HospitalComment on above:Performed By: #### INFLUAB #### [facility] [address] [place] [address] Dr. Ashlie HillsPotassium [Moles/Vol]4.2 mmol/LNormal3.5-5.1The [facility] Comment on above:Performed By: #### INFLUAB #### [facility] [address] [place] [address] Dr. Ashlie HillsSodium [Moles/Vol]138 mmol/ILbwfcx003-997Xnu [facility] Comment on above:Performed By: #### INFLUAB #### [facility] [address] [place] [address] Dr. Ashlie HillsUrea nitrogen [Mass/Vol]11.0 mg/dLNormal7.0-18.0The [facility] HospitalComment on above:Performed By: #### INFLUAB #### [facility] [address] [place] [address] Dr. Yilan ChangUrea nitrogen/Creatinine [Mass ratio]12.8 mg/mgNoCincinnati Children's Hospital Medical CenterComment on above:Performed By: #### INFLUAB #### [facility] [address] [place] [address] Dr. Ashlie Recinos MICROSCOPIC ONLYon [id number]V SEEN [facility] SouthComselect specialty hospital on above:Performed By: #### OBED UMICRO #### [facility] [address] [address] [address] Ashlie Cortez identified Cx Nom (U)INDICATEDKettering Health DaytonComselect specialty hospital on above:Performed By: #### OBED UMICRO #### [facility] [address] [place] [address] Dr. Ashlie Thibodeaux SEENNormalNONE SEENPremier Health Miami Valley Hospital SouthComselect specialty hospital on above:Performed By: #### OBED UMICRO #### [facility] [address] [place] [address] Dr. Ashlie Banegas LM Nom (Urine sed)NONE SEENNormalNONE SEENPremier Health Miami [facility] Hospital SouthComselect specialty hospital on above:Performed By: #### OBED UMICRO #### [facility] [address] [place] [address] Dr. Dailey ChangEaustinthelial cells LM Ql (Urine sed)MODERATEAbnormalNONE SEEN /RARE The [facility] HospitalComselect specialty hospital on above:Performed By: #### OBED UMICRO #### [facility] [address] [place] [address] Dr. Ashlie HaroE SEENNormalNONE SEENPremier Health Miami [facility] Hospital SouthComselect specialty hospital on above:Performed By: #### OBED UMICRO #### [facility] [address] [place] [address] Dr. Ashlie PruettXgdhwGVS9-3Caxlqg5-2Pvd [facility] HospitalComselect specialty hospital on above:Performed By: #### OBED UMICRO #### [facility] [address] [place] [address] Dr. Ashlie BhaktaBC0-2AbnormalNONE SEENOhio State East Hospital on above: Performed By: #### ERUR, UMICRO #### [facility] [address] [address] [address] Ashlie VelásquzeASTPRESENTAbnormalNONE SEENOhio State East Hospital on above:Performed By: #### ERUR, UMICRO #### [facility] [address] [address] [address] Ashlie Hutchinson RIGHT 1 OR 2 VWS WITH PELVISon 01-54-7662NMF RIGHT 1 OR 2 VWS WITH [facility]ELVISUnMemorial Hospital Department of Radiology [address] [place] [id number] Patient Name: MITZI MACIAS : 1970 Sex: F Age: Race: White Pt. Location: Patient Status: O Ordered Date: 07/20/2020 1:45:00 PM Completed Date: 07/20/2020 01:57 PM Requesting Provider: LIZ EISENBERG Attending Provider: LIZ EISENBERG Report Copy To: MCKAYLA BLAS Signs & Symptoms: M25.551 Pain in right hip I10 History: [place] Comments: evaluate Exam: HIP RIGHT 1 OR [...] MRI. Electronically signed: Pipo Acevedo. Transcribed by: [email or web address], User Resident: Electronically Signed by: PIPO ACEVEDO @ 07/20/2020 03:45 [facility] HospitalComment on above:Order Comment: evaluate Vital Signs Date TimeVital SignValuePerforming KhzuqtxotQmoyeoqd73-12-4307 17:58-0400Body htjkop992.1 cmLisa Aichholz [employer] Work Phone: [phone]10-22-2025 17:58-0400 Body mass index (BMI) [Ratio]61 kg/m2Lisa Aichholz [employer] Work Phone: [phone]10-22-2025 17:58-0400 Body flzsupofmwp72.1 [degF]Mckayla Aichholz [employer] Work Phone: [phone]10-22-2025 17:58-0400 Body liwzyr595.18 kgLisa Aichholz [employer] Work Phone: [phone]10-22-2025 17:58-0400 Diastolic blood xaykqhte50 mm[Hg]Mckayla Aichholz [employer] Work Phone: [phone] [address]10-22-2025 17:58-0400 Heart rate84 /minLisa Aichholz [employer] Work Phone: [phone])[address]10-22-2025 17:58-0400 Respiratory rate20 /minLisa Aichholz [employer] Work Phone: [phone]10-22-2025 17:58-0400 SaO2% (BldA) [Mass fraction]90 %Mckayla Aichholz [employer] Work Phone: [phone] [address]10-22-2025 17:58-0400 Systolic blood trrlrigr153 mm[Hg]Mckayla Aichholz [employer] Work Phone: [facility]09-29-2025 15:37-0400 Body mdniiarapns75.1 [degF]Mckayla Harshadholz [employer] Work Phone: [phone]-[facility]09-29-2025 15:37-0400 Diastolic blood dfrsaedd80 mm[Hg]Mckaylataryn Patriciaholz [employer] Work Phone: [phone] [address]09-29-2025 15:37-0400 Heart rate81 /minLisa Aichholz [employer] Work Phone: [phone] [address]09-29-2025 15:37-0400 Respiratory rate20 /minLisa Aichholz [employer] Work Phone: [phone] [address]09-29-2025 15:37-0400 SaO2% (BldA) [Mass fraction]92 %Mckayla Harshadholz [employer] Work Phone: [phone] [place], [place] [address]3609-29-2025 15:37-0400 Systolic blood dkifvgaz000 mm[Hg]Mckayla Patriciaholz [employer] Work Phone: [phone]-[facility]07-24-2025 09:48-0400 Body oxamqh835.2 Reji Souza MD Work Phone: [facility] CenterCkojsopuim85-05-2253 09:48-0400Body mass index (BMI) [Ratio]56.38 kg/q2DjfpvRain Souza MD Work Phone: [facility] CenterTbubnvopmq85-50-4589 09:48-0400Body pjaosi920.29 kgRain Souza MD Work Phone: [facility] CenterRagarhqgyt67-54-7108 09:48-0400Diastolic blood ugbhrmfr28 mm[Hg]Rain Souza MD Work Phone: [facility] CenterKqkawmysbf64-50-7749 09:48-0400Heart rate72 /min Rain Souza MD Work Phone: noHedrick Medical CenterPruhqghuaz27-54-3118 09:48-0400Respiratory rate16 /minRain Souza MD Work Phone: noHedrick Medical CenterTudezbqpfj35-84-9339 09:48-7642BbB1% (BldA) [Mass fraction]84 %Rain Souza MD Work Phone: [facility] CenterGptwdxnyzr70-93-8195 09:48-0400Systolic blood nwkbrovy498 mm[Hg]Rain Souza MD Work Phone: [facility] CenterQrlzgqmyfp01-24-9427 18:11-0400Body mass index (BMI) [Ratio]58.64 kg/m2Lisa Chetz [employer] Work Phone: [facility] CenterHkxccpyffr25-90-9788 18:11-0400Body temperature 98.49 [degF]Mckayla Wan [employer] Work Phone: [facility] CenterOqnpcjpxyc68-56-8033 18:11-0400Body uqnmdb250.83 kgLisa Chetz [employer] Work Phone: [facility] CenterCetwkzfuxa03-58-4815 18:11-0400Diastolic blood falikneb99 mm[Hg]Mckayla Wan [employer] Work Phone: [facility] CenterFrgdzyahoh85-45-4961 18:11-0400Heart rate81 /min Mckayla Wan [employer] Work Phone: [facility] CenterJtxcdscqbc01-03-9491 18:11-0400Respiratory rate20 /minLisa Chetz [employer] Work Phone: [facility] CenterBkkvivorpk13-49-5238 18:11-3758SmM1% (BldA) [Mass fraction]90 %Mckayla Wan [employer] Work Phone: [facility] CenterPulwrznbhy14-33-9983 18:11-0400Systolic blood aphsuner896 mm[Hg]Mckayla Wan [employer] Work Phone: [facility] CenterUoevftjgcy05-68-6656 10:19-0400Body temperature 98.01 [degF]Mckayla Rosenbergz [employer] Work Phone: [facility] CenterRxwmappkni26-69-0381 10:19-0400Diastolic blood bakpqemr19 mm[Hg]Mckayla Harshadholz [employer] Work Phone: [facility] CenterScvvwnbums74-52-3680 10:-0Heart rate71 /min Mckayla Harshadholz [employer] Work Phone: [facility] CenterIxvqrpzsou10-56-5277 10:-399Respiratory rate20 /minLisa Harshadholz [employer] Work Phone: [facility] CenterSpvucyhxtt94-64-6823 10:9252LoK4% (BldA) [Mass fraction]88 %Mckayla Rosenbergz [employer] Work Phone: [facility] CenterStggjvotyv86-38-1314 10:-399Systolic blood ebsqaegx051 mm[Hg]Mckayla Harshadholz [employer] Work Phone: [facility] CenterTkrzmokpoc48-12-6326 14:11-0400Body ozulnj125.2 cmLisa Harshadholz [employer] Work Phone: [facility] CenterUoxfcpzhur03-46-1190 14:11-0400Body mass index (BMI) [Ratio]56.51 kg/m2Maria De Jesussa Harshadholz [employer] Work Phone: [facility] CenterJydohgjxtn08-98-8034 14:11-0400Body temperature 98.71 [degF]Mckayla Harshadholz [employer] Work Phone: [facility] CenterGpvgfihnue50-85-1114 14:11-0400Body dbyrti837.66 kgLisa Juanjosehholz [employer] Work Phone: [facility] CenterOlmbyhoece92-94-5317 14:11-0400Diastolic blood deypbxjr35 mm[Hg]Mckayla Harshadholz [employer] Work Phone: [facility] CenterTesytttegd99-23-3250 14:11-0400Heart rate75 /min Mckayla Harshadholz [employer] Work Phone: [address] [address]Aetgzmxtsz70-84-1510 14:11-0400Respiratory rate18 /minMaria De Jesus Wan [employer] Work Phone: [facility] CenterGtvxxqdkss38-49-4301 14:11-2199JsE9% (BldA) [Mass fraction]90 %Mckayla Wan [employer] Work Phone: noHedrick Medical CenterRhgdaygxhy11-56-2842 14:11-0400Systolic blood faxhlsab777 mm[Hg]Mckayla Sowdona [employer] Work Phone: [facility] CenterZwvrvzvnqk46-42-3882 11:21-0400Body btsofu018.2 Reji Souza MD Work Phone: [facility] CenterIbmxnxvufy64-36-0936 11:21-0400Body mass index (BMI) [Ratio]55.91 kg/y1NxmjtRain Souza MD Work Phone: [address] [place], [place] [address]Ehpvdmxhxf41-61-7938 11:21-0400Body mjlalm117.93 kgRain Souza MD Work Phone: [facility] CenterIktllnswen96-42-6925 11:21-0400Diastolic blood adzflbje46 mm[Hg]Rain Souza MD Work Phone: [address] [place], [place] [address]Qnmjjrmqdt31-11-1724 11:21-0400Heart rate70 /min Rain Souza MD Work Phone: [facility] CenterZqtuwaimuz84-64-4534 11:21-0400Respiratory rate16 /minRain Souza MD Work Phone: [address] [place], [place] [address]Gxbgidphho12-91-0028 11:21-8796TjY2% (BldA) [Mass fraction]91 %Rain Souza MD Work Phone: [address] [place], [place] [address]Wplvhgawjf54-05-1618 11:21-0400Systolic blood cyfhbbxi075 mm[Hg]Rain Souza MD Work Phone: [address] [place], [place] [address]Pwurxrreuq89-76-1637 17:44-0500Body mass index (BMI) [Ratio]57.31 kg/m2Mckayla Blas CUPOLA CHARGER Work Phone: [facility] CenterHmwxxwkzmj06-68-8809 17:44-0500Body temperature 98.01 [degF]Mckayla Sowdona CUPOLA CHARGER Work Phone: [facility] CenterGsifqnlhgh60-56-5812 17:44-0500Body ebkaeq737.97 kgMckayla Juanjosecayetanodallin CUPOLA CHARGER Work Phone: [facility] CenterIpilfkvipd10-60-4470 17:44-0500Diastolic blood qeqdbbyl32 mm[Hg]Mckayla Wan CUPOLA CHARGER Work Phone: [facility] CenterLnxvbeemdv06-05-6577 17:44-0500Heart rate83 /min Mckayla Wan CUPOLA CHARGER Work Phone: [facility] CenterYafaxppqrw10-76-1450 17:44-0500Respiratory rate18 /minMckayla Blas CUPOLA CHARGER Work Phone: [facility] CenterKvfdqpaxzt81-82-9555 17:44-2267ZdR9% (BldA) [Mass fraction]91 %Mckayla Patriciadallin CUPOLA CHARGER Work Phone: [facility] CenterVzdjdleydh77-11-3913 17:44-0500Systolic blood ovxarwej930 mm[Hg]Mckayla Patriciadallin CUPOLA CHARGER Work Phone: [facility] CenterTeelzjfsgh64-48-5301 10:00-0500Blood Pressure LocationPaalexezra ARAUZ [facility] [place] 625532-04-2024 10:00-0500Diastolic blood tuxqjdue05 mm[Hg]Elbert ARAUZ [facility] [place] 625532-04-2024 10:00-0500Heart rate76 /minElbert ARAUZ [facility] [place] 625532-04-2024 10:00-0500Systolic blood zujztfds830 mm[Hg]Elbert ARAUZ [facility] [place] 536131-19-2024 10:20-0500Body yronqb914.2 Reji Souza MD Work Phone: [address] [place], [place] [address]Nxhmieiuoo96-62-0564 10:20-0500Body mass index (BMI) [Ratio]56.7 kg/v7XjqndRain Souza MD Work Phone: [address] [place], [place] [address]Cizkfpfmjo05-44-3605 10:20-0500Body puqkrd386.2 kgRain Souza MD Work Phone: [address] [place], [place] [address]Rauirdtpcs48-91-4921 10:20-0500Diastolic blood yueuodmr05 mm[Hg]Rain Souza MD Work Phone: [address] [place], [place] [address]Cbpsaizwbz23-66-7838 10:20-0500Heart rate72 /min Rain Souza MD Work Phone: [address] [place], [place] [address]Qpwgdnyehu59-47-7302 10:20-0500Respiratory rate16 /minRain Souza MD Work Phone: [place] [address]Ktsrxsrrkw21-72-3029 10:20-0500Systolic blood ovdqpnnu823 mm[Hg]Rain Souza MD Work Phone: [address] [place], [place] [address]Osqvjzywdb96-38-3845 10:27-0400Body pagsom452.1 Jamal Blas CUPOLA CHARGER Work Phone: [facility] CenterEigimetgvq00-11-2981 10:27-0400Body mass index (BMI) [Ratio]61.01 kg/m2Mckayla lBas CUPOLA CHARGER Work Phone: [facility] CenterWxfzwxqivz26-29-8631 10:27-0400Body temperature 98.49 [degF]Mckayla Blas CUPOLA CHARGER Work Phone: [facility] CenterJkjxptisnq90-60-8462 10:27-0400Body uuopez338.29 kgMckayla Blas CUPOLA CHARGER Work Phone: [place] [address]Irebvvgovs55-06-9294 10:27-0400Diastolic blood elomailg60 mm[Hg]Mckayla Blas CUPOLA CHARGER Work Phone: [facility] CenterUfbtyhevfn85-94-0036 10:27-0400Heart rate77 /min Mckayla Blas CUPOLA CHARGER Work Phone: [facility] CenterQrhqevhaiw02-32-6954 10:27-0400Respiratory rate19 /minMckayla Blas CUPOLA CHARGER Work Phone: [facility] CenterZeivvycouv29-55-4402 10:27-9700IsK8% (BldA) [Mass fraction]92 %Mckayla Blas CUPOLA CHARGER Work Phone: [facility] CenterLxstszzpos11-10-4382 10:27-0400Systolic blood agetiffq012 mm[Hg]Mckayla Blas CUPOLA CHARGER Work Phone: [facility] CenterIoovjcnvry73-25-7868 15:00-0400Body gnmlua289.18 cmAbdul Tico Other [employer] Other 3-773248-74302351-95-9514 15:00-0400Body tcbfuexzslh90.6 [degF]Stephanie Tico Other [employer] Other 304643-99-9875 15:00-0400Diastolic blood cvevorsa11 mm[Hg] Stephanie Tico Other [employer] Other 08-31-2022 15:00-0400Respiratory rate20 /minAbdul Tico Other [employer] Other 2-677876-66613262-24-6515 15:00-0291EgU1% (BldA) [Mass fraction]91 % Stephanie Tico Other [employer] Other 198391-34-7594 15:00-0400Systolic blood iioqemms538 mm[Hg] Stephanie Tico Other [employer] Other 08-15-2022 09:20-0400Body uycryf394.18 cmAbdul Tico Other [employer] Other 08-15-2022 09:20-0400Body lpwdwvhzvyg00.5 [degF]Stephanie Tico Other [employer] Other 08-15-2022 09:20-0400Diastolic blood aukkufcj96 mm[Hg] Stephanie Tico Other [facility] [employer] Other 08-15-2022 09:20-0400Respiratory rate20 /minAbdul Tico Other [employer] Other 08-15-2022 09:20-7341MrC4% (BldA) [Mass fraction]91 % Stephanie Tico Other [employer] Other 08-15-2022 09:20-0400Systolic blood mm[Hg] Stephanie Tico Other [employer] Other 08-01-2022 10:24-0400Blood Pressure LocationPanorton suburban hospitalezra ARAUZ [facility] 08-01-2022 10:24-0400Diastolic blood wfkrubnm12 mm[Hg] Elbert ARAUZ [facility] 08-01-2022 10:24-0400Heart rate70 /minPanorton suburban hospitalezra ARAUZ [facility] 08-01-2022 10:24-0400Respiratory rate16 /minPatrick REGLA [facility] 08-01-2022 10:24-0400Systolic blood firwqbpx066 mm[Hg] Elbert ARAUZ [facility] Encounters Encounter DateEncounter TypeCare ProviderFacilityStart: 57-96-4483slkjfnzjcvVkwq Jo Aichholz MANAGER OF ENGINEERING-CNPFacility:[facility]: 05-22-2025 ambulatoryLance Huey Urias DPMFacility:[facility]art: 05-18-2025 End: 50-87-1780phsbgzjdmmOiqx Jo Aichholz MANAGER OF ENGINEERING-CNPFacility:[facility]Start: 04-29-2025 End: 55-63-3662cneazekseiGgig J Aichholz CUPOLA CHARGER-C Work Phone: -[facility] ClydeStart: 04-29-2025 End: 26-33-6834Iuemfcy encounter procedureLisa Krystal Blas CUPOLA CHARGER-C-[facility] Work Phone: Start: 04-23-2025 End: 10-85-9497hfsarmfxezZftava Nas Rojas MANAGER OF ENGINEERING-CNPFacility:[facility] FindlayStart: 04-17-2025 End: 63-98-3656hgeznohdisYjip Jo Aichholz MANAGER OF ENGINEERING-CNPFacility:[facility]tart: 04-06-2025 End: 21-96-1687nncgsoqkeaZmys J Aichholz CUPOLA CHARGER-C Work Phone: [facility] Work Phone: Start: 04-06-2025 End: 14-59-0397Kxeipld encounter procedureLisa Krystal Blas CUPOLA CHARGER-C-[facility] [place] Work Phone: Start: 16-52-8798Uorydok encounter procedureMckayla Blas CUPOLA CHARGER-C Work Phone: [facility]: 73-56-2090Hmg- patient / Non-visitLanashley Urias DPM-[facility] Work Phone: Start: 06-10-7779Zns-patient / Non-visitPrice Ramsey DO-[facility] Work Phone: Start: 83-92-0218myrvrsnnmdHyhrbo Nas Bob MANAGER OF ENGINEERING-GENERAL EDUCATION PROFESSOR [facility]layStart: 03-23-2025 End: 37-87-1106awjzvjdbriYvpkdd Nas Bob MANAGER OF ENGINEERING-CNPFacility:[facility] FindlayStart: 03-11-2025 End: 29-21-2351plrxfwlzjsGqgvo Huey Urias DPMFacility: [facility]trStart: 03-09-2025 End: 61-21-0161CqdagwFwtn Aichholz NP Work Phone: noms [facility] FMComment on above:Tobacco user; Encounter for smoking cessation counselingStart: 01-29-2025 End: 03-36-4698Pshzzo Jack Souza MD Work Phone: noms ENDOCRINOLOGYStart: 01-29-2025 End: 86-93-0461Soveblashley Souza MD Work Phone: noms ENDOCRINOLOGYStart: 01-29-2025 End: 54-61-8365Oefndbzfg Result EncounterGeneric External Data ProviderNOMS External Department UnsolicitedStart: 01-29-2025 End: 31-86-5307zxzghzxbqsLHVXFRichard Negron AvailableStart: 01-29-2025 End: 95-68-0043Ijbcoc outpatient visit 25 minutesRain Souza MD Work [...] ([facility])Start: 01-26-2025 End: 76-70-7906wzmuuomacyHXOZ AICHHOLZNot AvailableStart: 01-26-2025 End: 60-08-5316Jizuaqr encounter Marcela Blas NP Work Phone: noms CWM FMComment on above:Encounter for subsequent annual wellness visit (AWV) in Medicare patient (Primary Dx); Mixed hyperlipidemia ; Type 2 diabetes mellitus with complication, with long-term current use of insulin (HCC); Bilateral lower extremity edema; Gastro-esophageal reflux disease without esophagitis; Chronic diastolic heart failure ([facility]); Primary hypertension ; Pulmonary hypertension ([facility]); Diabetic polyneuropathy associated with type 2 diabetes mellitus ([facility]); Pulmonary emphysema, unspecified emphysema type ([facility]); Moderate persistent asthma without complication ([facility]); Insomnia; Non-seasonal allergic rhinitis, unspecified trigger; Type 2 diabetes mellitus with unspecified complications ([facility]); Anxiety and depression ; Antibiotic-induced yeast infection; Chronic obstructive pulmonary disease, unspecified (HCC); Hyperlipidemia, unspecified ; Vaginal yeast infection; Morbid (severe) obesity due to excess calories ([facility])Start: 01-06-2025 End: 80-73-0934ghagwrwsmrRPKIRAL [facility] Hospitaltart: 12-18-2024 End: 61-76-8873PrqxkiCbpi Aichholz CUPOLA CHARGER Work Phone: NOMS CWM FMComment on above:Hyperlipidemia, unspecified ; Tobacco user; Encounter for smoking cessation counselingStart: 12-09-2024 End: 58-79-5498Eorxax Shirlene Blas CUPOLA CHARGER Work Phone: noms CWM FMStart: 12-09-2024 End: 83-10-7929Oavegj Shirlene Blas NP Work Phone: [facility] CWM FMStart: 12-09-2024 End: 78-21-6430bopyrmfgrwOMGK AICCayetanoHOLZNot AvailableStart: 12-09-2024 End: 25-49-6741Melklw outpatient visit 25 minutesMckayla Blas CUPOLA CHARGER Work Phone: noms CW FMComment on above:Cellulitis of left lower extremity (Primary Dx); COPD exacerbation (CMS/HCC); Primary hypertension (CMS/HCC); Pulmonary hypertension (CMS/HCC); Morbid (severe) obesity due to excess calories ([facility]/HCC); Type 2 diabetes mellitus with complication, with long-term current use of insulin ([facility]); Anxiety and depression ([facility]); Fever, unspecified fever causeStart: 12-04-2024 End: 16-25-6196Euljbwoah Result EncounterGeneric External Data ProviderNOMS External Department UnsolicitedStart: 12-04-2024 End: 98-29-6260Ovhjmrizy Result EncounterGeneric External Data ProviderNOLA External Department UnsolicitedStart: 10-27-2024 End: 33-18-8123dhpheiwvtmWPNY AICHHOLZNot AvailableStart: 10-27-2024 End: 71-71-4333Enpsti outpatient visit 25 minutesMckayla Blas CUPOLA CHARGER Work Phone: noms [facility] FMComment on above:Primary hypertension (CMS/HCC) (Primary Dx); Diabetic polyneuropathy associated with type 2 diabetes mellitus ([facility]/HCC); Chronic diastolic heart failure ([facility]/HCC); Bilateral lower extremity edema; Morbid (severe) obesity due to excess calories ([facility]/HCC); Type 2 diabetes mellitus with complication, with long-term current use of insulin ([facility]/HCC); Anxiety and depression ([facility]/HCC); Cigarette nicotine dependence without complication; Encounter for screening mammogram for malignant neoplasm of breast; Insomnia; Non-seasonal allergic rhinitis, unspecified trigger; Type 2 diabetes mellitus with unspecified complications; Vitamin D deficiency, unspecified; Gastro-esophageal reflux disease without esophagitis; PAD (peripheral artery disease) ([facility]/HCC); Gastroesophageal reflux disease, unspecified whether esophagitis present; Venous ulcer of right leg ([facility])Start: 10-21-2024 End: 69-79-2599EqedkaNcqd Aichdallin CUPOLA CHARGER Work Phone: noms CWM FMComment on above:Chronic obstructive pulmonary disease, unspecifiedStart: 10-08-2024 End: 48-36-8680Zayeaohvh Result EncounterLisa Blas CUPOLA CHARGER Work Phone: noms External Department UnsolicitedStart: 10-08-2024 End: 30-57-4506Hoxzivlhg Result EncounterLisa Blas CUPOLA CHARGER Work Phone: noms External Department UnsolicitedStart: 10-08-2024 End: 81-19-3907Rnjrzb outpatient visit 25 Adolfo Souza MD Work [...] of50.0 to 59.9 in adultStart: 10-08-2024 End: 41-96-0256dlkpnytsfuOZOBG F SABBAGHNot AvailableStart: 08-27-2024 End: 57-75-6368Imovdl outpatient visit 25 minutesMckayla Wan SCHAEFER Work [...] long-term current use of insulin ([facility]); Tobacco user; Mixed hyperlipidemia ([facility]); Gout, unspecified cause, unspecified chronicity, unspecified site; Vitamin deficiency; Gastro-esophageal reflux disease without esophagitis; Edema, unspecified; Edema; Hyperlipidemia, unspecified ([facility]); Encounter for smoking cessation counseling; Venous ulcer of right leg ([facility]); Antibiotic-induced yeast infectionStart: 08-27-2024 End: 72-99-9865jxdocsgdtpZOVKTaj Kendall AvailableStart: 08-27-2024 End: 33-04-2402Pimhbspit Result EncounterGeneric External Data ProviderNOMS External Department UnsolicitedStart: 08-27-2024 End: 96-08-0314Eesvabtry Result EncounterGeneric External Data ProviderNOMS External Department UnsolicitedStart: 08-08-2024 End: 24-11-8794cxxhgoctuaDITACOhioHealth Van Wert Hospitaltart: 07-17-2024 End: 80-46-9300NpcdwuZxlf Aichholz NP Work Phone: noms CWM FMStart: 07-14-2024 End: 45-49-7539Dqcgsy outpatient visit 25 Heena Blas NP Work Phone: noms CWM FMComment on above:Primary hypertension ([facility]) (Primary Dx); Diabetic polyneuropathy associated with type 2 diabetes mellitus ([facility]); Pulmonary emphysema, unspecified emphysema type ([facility]); Critical limb ischemia of right lower extremity ([facility]); PAD (peripheral artery disease) ([facility]); Gastroesophageal reflux disease, unspecified whether esophagitis present; Bilateral lower extremity edema; Venous ulcer of right leg ([facility]); Type 2 diabetes mellitus with complication, with long-term current use of insulin ([facility]); Tobacco user; Encounter for smoking cessation counseling; Kidney stone; Adrenal mass 1 cm to 4 cm in diameter ([facility]); Radiculopathy, lumbar region; Non-seasonal allergic rhinitis, unspecified trigger; Type 2 diabetes mellitus with unspecified complications ([facility])Start: 07-14-2024 End: 93-46-2265woqdqbcmthMFXW AICHHOLZNot AvailableStart: 07-05-2024 End: 08-16-7401YptxtdAmjt Aichholz SILVANO Work Phone: noms [facility] FMComment on above:Bilateral lower extremity edemaStart: 06-11-2024 End: 54-25-8662wljrtecfnuViwieea R REGLAFacility:EU SanduskyStart: 06-11-2024 End: 37-20-7031Chsuakk encounter procedurePanaomy ARAUZ [facility] Ghada Start: 05-27-2024 End: 09-58-0726Esrwdm Jack Souza MD Work Phone: noms ENDOCRINOLOGYStart: 05-27-2024 End: 52-34-3813Agyeegyousif Souza MD Work Phone: noms ENDOCRINOLOGYStart: 05-27-2024 End: 85-78-0938hbfqnbsktnOOZFV F SABBAGHNot AvailableStart: 05-27-2024 End: 28-07-5008Btnpot outpatient visit 25 minutesRain Souza MD Work Phone: noms ENDOCRINOLOGYComment on above:Type 2 diabetes mellitus with hyperglycemia, with long-term current use of insulin (CMS/[facility]) (Primary Dx); Encounter for dietary consultation; Vitamin D deficiency; Primary hypertension (CMS/HCC); Insulin long-term use (CMS/HCC); Hyperlipemia, mixed (CMS/HCC); Microalbuminuria; Class 3 severe obesity due to excess calories with serious comorbidity and body mass index (BMI) of50.0 to 59.9 in adult (CMS/HCC)Start: 05-12-2024 End: 30-97-6474Lrkkfzffv Result EncounterGeneric External Data ProviderNOMS External Department UnsolicitedStart: 05-12-2024 End: 59-83-4479Helgmrenz Result EncounterGeneric External Data ProviderNOMS External Department UnsolicitedStart: 37-93-6354txaswjhhlsLJDKLGLS E SILVIA Facility:EU [place]Start: 04-24-2024 End: 13-90-2133Cbdjdgnoq Result EncounterGeneric External Data ProviderNOMS External Department UnsolicitedStart: 04-24-2024 End: 15-91-6817Rgncixybj Result EncounterGeneric External Data ProviderNOMS External Department UnsolicitedStart: 04-14-2024 End: 30-59-9345Ppudak flowsheetMckayla Blas CUPOLA CHARGER Work Phone: noms CWM FMStart: 04-14-2024 End: 61-85-5587Fjzfau flowsheetMckayla Blas CUPOLA CHARGER Work Phone: noms CWM FMStart: 04-14-2024 End: 93-43-4621Yfjzgi outpatient visit 25 minutesLisa Blas CUPOLA CHARGER Work Phone: noms CWM FMComment on above:Primary [...] Tobacco user; Hyperpigmentation of skinStart: 04-14-2024 End: 19-34-0220gmzbhwgrvmKZQD AICHRAVIZNot AvailableStart: 04-05-2024 End: 14-00-4104FufhhbGxki Aichholz CUPOLA CHARGER Work Phone: noms CWM FMComment on above:Hyperlipidemia, unspecified (CMS/HCC); Bilateral lower extremity edemaVitamin D deficiency, unspecifiedStart: 68-13-4699Ehckyyj encounter Mary Ann Souza MD Work Phone: NOMS HealthcareStart: 12-14-2023 End: 97-71-3171Jdwlmbsgl Result EncounterLisa Harshadholz CUPOLA CHARGER Work Phone: noms External Department UnsolicitedStart: 12-14-2023 End: 71-58-0955Otuyvzlmv Result EncounterLisa Harshadholz CUPOLA CHARGER Work Phone: noms External Department UnsolicitedStart: 08-31-2023 End: 25-49-3299Wvamyaxdf Result EncounterAmy Cari MAYERS Work Phone: noms External Department UnsolicitedStart: 08-31-2023 End: 46-12-1321Frskrojlo Result EncounterAmy Cari MAYERS Work Phone: noms External Department UnsolicitedStart: 08-17-2023 RefillLisa Patriciaholz CUPOLA CHARGER Work Phone: noms CWM FMComment on above:Vaginal yeast infection (Primary Dx)Start: 19-12-6063KbxtsdAhip Aichholz CUPOLA CHARGER Work Phone: NOYJ CWM FMComment on above:Type 2 diabetes mellitus with unspecified complications (CMS/HCC); Edema, unspecified; EdemaStart: 17-31-0052iofhieoemdMHEYJGHLWHNL LAKSHMIPATHY .Facility:Y0Yzuue: 12-05-2022 End: 85-67-2340Wervqzfbkh and management of inpatientJESSICA ALONDRA .Facility:H1 Start: 11-23-2022 End: 80-17-2751jqmtsjfnntYLS MCKAYLA AICHHOLZFacility:O6Iyykl: 11-22-2022 End: 66-45-7691hddfgihcksMFO MCKAYLA AICHHOLZFacility:H4Wfrci: 11-17-2022 End: 89-10-4053qoudujqcegEADYMFA HALKER .Facility:O0Griqo: 11-15-2022 End: 51-80-2968Jkjgeie encounter procedureJENNIFER E SILVIA [facility] start: 10-05-2022 End: 81-14-0762eismifpvbgYFVSLH DIAB .Facility:N8Sylzl: 09-21-2022 End: 54-13-4897xsyxckkquxDIP MCKAYLATaryn BLASFacility:J8Avhbd: 84-07-1160gjeqvanuie COMFORT CULLENFacility:O2Wqzda: 08-24-2022 End: 64-52-7159kiqnisjsqiDW CHAPARRO S MORTENSEN .Facility:X7Ymxym: 08-21-2022 End: 19-62-0057aviferephgSQQQI D [facility]ac[facility]:F4Bqeqx: 07-27-2022 End: 00-97-2698pqwptqcskuPZKM TAMLYN .Facility:M2Cedfn: 07-18-2022 End: 30-42-0843mbaowrsptxADIG TAMLYN .Facility:W1Chqso: 07-18-2022 End: 51-99-0714pfunzrlstqQOWFW D [facility]SFacility:M6Vbdnp: 07-06-2022 End: 82-95-8163rkvpqcueqoSZI MCKAYLA WANFacility:K1Nrsza: 05-11-2022 End: 09-74-2410bbyjvlyzkjEIGI VALENZUELA .Facility:J5Lqkyj: 04-25-2022 End: 83-83-1051tfnnsndjakZD CHAPARRO S MORTENSEN .Facility:Z3Dgluc: 04-20-2022 End: 90-88-6532fydawtvwehSBNV VALENZUELA .Facility:J1Uhchv: 03-08-2022 End: 38-97-5515bctcdbboluUggdn Tico Other [employer] Other Start: 85-68-8181Vytopw outpatient visit 15 minutes Stephanie QadirFPG NephrologyStart: 03-03-2022 End: 81-32-4724ujcxsiwjjiQFA MCKAYLA Judicility:D6Gzxra: 02-20-2022 End: 36-35-3208hvdzmybzgvZufea Tico Other [employer] Other Start: 02-58-9040Iwroal outpatient new 45 minutesAbdul QadirFPG NephrologyStart: 02-06-2022 End: 56-82-7886Ozgiycu encounter procedureElbert Mahnaz ARAUZ [facility] Wilfredo start: 01-19-2022 End: 94-13-7658mgigagjkjuGSKV SOLIS .Facility:A8Mbjsc: 12-24-2021 End: 38-17-3591sowviaximcSQTSD PARKERFacility:N4Nwrvf: 08-26-2020 End: 10-80-1072Mdcchpm encounter procedureVITHAL GABINODGEFacility:UTMCStart: 10-30-2019 End: 25-98-7321Cxrflajde department patient visitDOMorton Hospitaltart: 10-30-2019 End: 88-82-1245Ruypylvbw department patient visitOhioHealth Emergency DepartmentStart: 68-24-0630Kbyrzznawewf stateAbdul Tico Other rt [employer] Other Procedures DateProcedureProcedure DetailPerforming ClinicianStart: 02-80-0565FW ECHO DOPPLER COMPLETEGeneric External Data ProviderStart: 71-20-2368Whji bld gluc mntr dev cleared fda spec home useAhart Souza MD Work Phone: Start: 30-53-0357AJFGP CULTURE 2Generic External Data ProviderStart: 68-56-5398QISDR CULTURE 1Generic External Data ProviderStart: 82-37-2583Efwg bld gluc mntr dev cleared fda spec home useRain Souza MD Work Phone: Start: 82-90-9723RJR UA (CLEAN/CATCH) MICROSCOPIC IF INDICATELisa Aichholz CUPOLA CHARGER Work Phone: Start: 83-87-7367ITQ CBC WITH AUTO DIFFGeneric External Data ProviderStart: 25-75-2591Ogcy bld gluc mntr dev cleared fda spec home useRain Souza MD Work Phone: Start: 52-52-1102XJ LUMBAR SPINE WO CONGeneric External Data ProviderStart: 43-12-6771AM ABDOMEN PELVIS W CONGeneric External Data ProviderStart: 87-53-8764FEQ CREATININEGeneric External Data ProviderStart: 33-70-1947ULFWBBMTX BLOOD PRESSUREGeneric External Data ProviderStart: 28-83-8398KO TOMOSYNTHESIS SCREENING Chyna Blas NP Work Phone: Start: 30-54-4676SofgyspblcjUcxzs Sabbagh MD Work Phone: Start: 56-80-8355WFNIH CULTURE 2Generic External Data ProviderStart: 64-62-8076LTDAI CULTURE 1Generic External Data ProviderStart: 66-16-8695STH 12-LEADAmy Cari MAYERS Work Phone: Start: 20-13-7070KoczsrskincHvej Aichholz NP Work Phone: Start: 23-83-1397Ewikvaqxzzd observation [Identifier] in Cervix by Cyto stainMckayla Blas NP Work Phone: H/O: hysterectomyPatrick [employer] Laparoscopic cholecystectomyPatrick [employer] Operative procedure on footPatrick [employer] Plan of Treatment DateCare ActivityDetailAuthorStart: 02-01-2026 End: 03-47-5561Cquzsmf encounter procedureNOMS CWM FMStart: 07-21-2026Medicare Annual Wellness (AWV)Medicare Annual Wellness (AWV)[facility] HealthcareStart: 91-33-2760Vcaou screening for proteinDiabetes: Urine Protein ScreeningNOMS HealthcareStart: 21-61-3674Vuffdbffd for malignant neoplasm of colonNOMS HealthcareStart: 92-09-7223Trvndfqn screeningDiabetes: Retinopathy ScreeningNOMS HealthcareStart: 05-28-2025 End: 91-34-4441Rhoqqii encounter procedureNOEASTERN MISSOURI [facility] ENDOCRINOLOGYStart: 05-13-2025 Glaucoma screeningDiabetes: Retinopathy ScreeningAlvin J. Siteman Cancer CenterStart: 96-95-8082Tgqpbjjtpo A1c measurementDiabetes: Hemoglobin Y5KGDRJAlvin J. Siteman Cancer Center Start: 04-29-2025 End: 29-77-4480Rawuetg encounter procedureNOTHE CHILDREN'S [facility] FMStart: 95-33-8465Dnlbpahlc vaccinationINTER[facility]ALTH[facility]ARE HealthcareStart: 01-28-2025 End: 26-84-0272Wrxocuz encounter juiuzxjmt04/23/2025 10:50 AM EDT Office Visit [facility] [address] [place] [address] Rain Souza MD [address] [place] [address] [facility] ENDOCRINOLOGYStart: 01-26-2025 End: 31-90-5592Ctulaba encounter vyfcvkfwu57/21/2025 6:00 PM EDT [facility] [address] [place] [address] Mckayla Blas, CUPOLA CHARGER [address] [place] [address] [facility] FMStart: 07-11-2025Medicare Annual Wellness (AWV) Medicare Annual Wellness (AWV)[facility] HealthcareStart: 87-50-5745Xuqcslffro A1c measurementDiabetes: Hemoglobin V0VOEEIAlvin J. Siteman Cancer CenterStart: 12-15-2024 End: 62-83-8310DE Breast - bilateral ScreeningBilateral screening mammogram Imaging Routine Encounter for screening mammogram for malignant neoplasm of breast Expected: 12/15/2024 (Approximate), Expires: 12/27/2025[facility] Work Phone: Comment on above:Expected: 12/15/2024 (Approximate), Expires: 12/27/2025Start: 31-77-1623Ksmwttjok for malignant neoplasm of breast MammogramAlvin J. Siteman Cancer CenterStart: 03-70-5192Wiisv screening for proteinDiabetes: Urine Protein ScreeningINTERMOUNTAIN HEALTHCARE HealthcareStart: 10-27-2024 End: 93-96-3800Ipfjpfz encounter vqhkzemcz93/21/2025 2:00 PM EDT Office Visit [facility] FM [address] [place] [address] Mckayla Blas, CUPOLA CHARGER [address] [place] [address] [facility] FMStart: 10-08-2024 End: 82-08-7762Ojdgnvy encounter /02/2025 11:20 AM EDT Office Visit [facility] [address] [place] [address] Rain Souza MD [address] [place] [address] [facility]Start: 08-27-2024 End: 26-77-0192Dafkbdt encounter egtnbpujn46/19/2025 5:30 PM EST Office Visit [facility] [address] [place] [address] Mckayla Blas, SILVANO [address] [place] [address] [facility] FMStart: 08-27-2024 End: 166803-hjqafwlnygnppr D3 [Mass/volume] in Serum or PlasmaVitamin D 25 hydroxy Lab Routine Vitamin deficiency Expected: 08/27/2024 (Approximate), Expires: 08/27/2025[facility] HealthcareComment on above:Expected: 08/27/2024 (Approximate), Expires: 08/27/2025Start: 64-38-3665Gjuccblswm A1c measurement Diabetes: Hemoglobin Q0YIOBAHedrick Medical CenterStart: 08-27-2024 End: 54-38-1175Lwppdgv function 2000 panel - Serum or PlasmaHepatic function panel Lab Routine Hyperlipidemia, unspecified ([facility]) Expected: 08/27/2024 (Approximate), Expires: 08/27/2025[facility] HealthcareComment on above:Expected: 08/27/2024 (Approximate), Expires: 08/27/2025Start: 08-27-2024 End: 43-64-6994Ccikw 1996 panel - Serum or PlasmaLipid panel Lab Routine Mixed hyperlipidemia ([facility]CC) Expected: 08/27/2024 (Approximate), Expires:08/27/2025 [facility] Healthcare Work Phone: Comment on above:Expected: 08/27/2024 (Approximate), Expires: 08/27/2025Start: 08-27-2024 End: 89-83-8372Fesmralbllom/Creatinine panel in random UrineMicroalbumin / creatinine, urine ratio Lab Routine Primary hypertension ([facility]) Type 2 diabetes mellitus with complication, with long-term current use of insulin ([facility]) Expected: 08/27/2024 (Approximate), Expires: 08/27/2025[facility] Healthcare Comment on above:Expected: 08/27/2024 (Approximate), Expires: 08/27/2025Start: 08-27-2024 End: 55-22-4832Qzayg [Mass/volume] in Serum or PlasmaUric acid Lab Routine Gout, unspecified cause, unspecified chronicity, unspecified site Expected: (Approximate), Expires: 08/27/2025[facility] HealthcareComment on above: Expected: 08/27/2024 (Approximate), Expires: 08/27/2025Start: 08-27-2024 End: 84-02-5480Qpxzjhnlij complete panel - UrineUrinalysis with reflex microscopic (clean catch) Lab Routine Primary hypertension ([facility]) Type 2 d iabetes mellitus with complication, with long-term current use of insulin ([facility]) Tobacco user Gout, unspecified cause, unspecified chronicity, unspecified site Expected: 08/27/2024 (Approximate), Expires: 08/27/2025[facility] HealthcareComment on above:Expected: 08/27/2024 (Approximate), Expires: 08/27/2025Start: 08-26-2024 End: 62-48-5934Sgzpivc encounter rczjkzmuj70/18/2025 10:30 AM EST Office Visit [facility] [address] [place] [address] Rain Souza MD [address] [place] [address] [facility]CRIN[facility]YStart: 07-14-2024 End: 58-16-1585Xatobry encounter ebaftldor99/06/2025 6:30 PM EST Office Visit [facility] [address] [place] [address] Mckayla Blas NP [address] [place] [address] [facility] FMStart: 07-14-2024 End: 52-09-0577Ekogaur encounter xvzeusgvf04/06/2025 10:10 AM EST Office Visit [facility] [address] [place] [address] Rain Souza MD [address] [place] [address] [facility] ENDOCRINOLOGYStart: 42-16-4412Fzdeyaobn vaccinationInfluenza Vaccine (#1)[facility] HealthcareComment on above:Postponed from 03/09/2024 (Patient Refused)Start: 05-27-2024 End: 92-30-9530Rfbrgqv encounter ljpgkfrpa91/19/2024 9:50 AM EST Office Visit [facility] [address] [place] [phone] Rain Souza MD [address] [place] [address] [facility] ENDOCRINOLOGYStart: 71-06-3579Qjntkpnbae A1c measurementDiabetes: Hemoglobin H1YEQMH HealthcareStart: 05-15-2024 End: 35-30-2979Hgamn hrwqjnkhdyz01/07/2024 Abstract [facility] [address] [place] [address] Rain Souza MD [address] [place] [address] [facility] ENDOCRINOLOGYStart: 05-15-2024 End: 00-17-3501Bmiqosu encounter fzyjnvjmr83/07/2024 11:20 AM EST Office Visit [facility] [address] [place] [address] Rain Souza MD [address] [place] [address] [facility] ENDOCRINOLOGYStart: 04-17-2024 End: 45-85-6807Jqlvcig encounter bgxikoaum90/10/2024 3:40 PM EDT Office Visit [facility] [address] [place] [address] Mckayla Blas, CUPOLA CHARGER [address] [place] [address] [facility] FMStart: 04-14-2024 End: 01-26-9739Nipmgiy encounter /07/2024 11:00 AM EDT Office Visit [facility] [address] [place] [address] Mckayla Blas, CUPOLA CHARGER [address] [place] [address] ArrivedNOMS CW FMComment on above:ArrivedStart: 03-09-2024 Influenza vaccinationInfluenza Vaccine (#1)[facility] HealthcareStart: 02-19-2024 Hemoglobin A1c measurementDiabetes: Hemoglobin N2DTTPX HealthcareStart: 22-04-7388Lhkzz screening for proteinDiabetes: Urine Protein ScreeningNOLA HealthcareStart: 07-05-0711Tkzjfaejx for malignant neoplasm of breastMammogram [facility] HealthcareStart: 10-15-2023 End: 06-36-2385Elejbpc encounter symyuhntk24/08/2024 4:30 PM EDT Office Visit [facility] [address] [place] [address] Mckyala Blas, CUPOLA CHARGER [address] [place] [address] [facility] FMStart: 01-04-4631Odmstjwlli A1c measurement Diabetes: Hemoglobin W1GNWUQ HealthcareStart: 41-20-9421Pxiotktd screening Diabetes: Retinopathy ScreeningNOLA HealthcareStart: 19-05-5833Osktyvxyo vaccinationFlu vaccine (Season Ended)[facility]: 10-07-2018 Screening for malignant neoplasm of cervixNOLA HealthcareStart: 26-71-9956Fokfm panelLipid screenMercy Health Urbana Hospital: 02-95-3229Xumzwwled for malignant neoplasm of cervixHPV/CotestNOLA HealthcareStart: 18-67-5867Zkbzqlgyj for malignant neoplasm of cervixCervical cancer [facility]: 86-11-1674CQfP/Tdap/Td vaccine (1 - Tdap)DTaP/Tdap/Td vaccine (1 - Tdap)[facility]: 86-39-5736BWF screeningHIV [facility]: 02-17-1971Medicare Annual Wellness (AWV)Medicare Annual Wellness (AWV)[facility] HealthcareStart: 02-03-3990Uctxawqgx for malignant neoplasm of colonNOMS HealthcareBLOOD CULTURE 1BLOOD CULTURE 1 Lab Routine 12/04/2024 4:44 PM EDTNOMS HealthcareBLOOD CULTURE 2BLOOD CULTURE 2 Lab Routine 12/04/2024 5:28 PM EDTNOLA Healthcare Immunizations Immunization DateImmunizationNotesCare NpspfzzgVmavypcg40-13-5076wpcyeuhvf, injectable, quadrivalent, contains preservativeMckayla Blas CUPOLA CHARGER Work Phone: NOHedrick Medical CenterYxjgtoaniu54-49-1908rwgxabced virus vaccine, unspecified formulationRain Souza MD Work Phone: [facility]01-11-2022SARS-CoV-2 (COVID-19) mRNA BNT-162b2 vaxJENNIFER SILVIA [facility]04-22-2021SARS-CoV-2 (COVID-19) mRNA BNT-162b2 vaxJENNIFER SILVIA [facility]04-02-2021SARS-CoV-2 (COVID-19) mRNA BNT-162b2 vaxJENNIFER SILVIA [facility]10-09-2017influenza virus vaccine, H5N1, A/ (national stockpile)Mckayla Blas CUPOLA CHARGER Work Phone: [facility] Cancer CenterHtwblrshfi97-23-1738zzjjkzinm virus vaccine, unspecified formulationRain Souza MD Work Phone: NOHedrick Medical CenterZlcoiskjgw58-33-3795arqljpswa, unspecified formulationPanorton suburban hospitalk ARAUZ [facility] [place] 536130-09-2017pneumococcal polysaccharide vaccine, 23 valMunira Souza MD Work Phone: N[facility] Yuoudtsqqa45-98-9975mddrfwnzr virus vaccine, H5N1, A/ (national stockpile)Mckayla Blas CUPOLA CHARGER Work Phone: noHedrick Medical CenterMnocluvjzf87-67-8455vprxnnotq virus vaccine, unspecified formulationRain Souza MD Work Phone: noHedrick Medical CenterCvtsxavnea45-47-6989ovfakqptj, unspecified formulationPatrick ARAUZ [facility]10-25-2013influenza virus vaccine, whole virusRain Souza MD Work Phone: NOHedrick Medical CenterFttbfmxoec17-05-6851prgnpxlgx, injectable, quadrivalent, contains preservativeLisa Aichholz CUPOLA CHARGER Work Phone: [facility] Cancer CenterMorzntmqee06-51-0777jnyequggy, wholePatrick ARAUZ [facility]ery07-24-1998measles, mumps and rubella virus vaccineRain Souza MD Work Phone: [facility] Healthcare Payers DatePayer CategoryPayerPolicy [id number] 2024Medicare (Managed Care)[id number] Health [id number] [id number] 2019[place]icaid[place] [id number] 2018-Present [phone] [place] [address]Medicaid [id number] 2013Medicare [id number] 2.16.840.1.065575.3.57[id number] 2.16.840.1.205377.3.579.[id number] 2.16.840.1.502250.3.579.[id number] 2..840.1.342547.3.57[id number] 2..840.1.257771.3.579.2.50470-55-9723Wyklmzs6079720 2.840.1.253629.3.57[id number] 2.840.1.088166.3.57[id number] 2.840.1.944310.3.579.2.01679-76-8767Ijjshbg4782460 2.0.1.046413.3.579.2.74756-66-4402Zypvkul3275788 2.840.1.487543.3.579.2.29716-19-3065Lfzlffo3769260 2.840.1.450730.3.579.2.63973-99-4000Mbvntbu2802921 2.840.1.224661.3.579.2.87943-08-6613Zrrwsco6409253 2.840.1.581772.3.579.2.00824-20-1543Ewmjhiv1668875 2.840.1.164569.3.579.2.94713-87-7927Icikfud1224793 2.840.1.879087.3.579.2.08858-16-5177Kvkjdrc1984651 2.840.1.391045.3.579.2.56816-91-3385Jpgmxss9910217 2.840.1.829697.3.579.2.33039-19-8391Btqgoda3521044 2.16.840.1.436919.3.579.2.15894-75-5666Lmhekwn4062791 2.0.1.545442.3.579.2.83057-85-6982Nwoggyz3980563 2.840.1.341787.3.579.2.04521-37-4366Idslxga2598911 2.840.1.847805.3.579.2.73424-17-4000Gfvrgbi4040497 2.0.1.923973.3.579.2.09777-42-5193Ymnlquk8305816 2..1.403297.3.579.2.81066-94-7223Ahcuvnw46577034 2..1.271149.3.579.2.613061-22-4678Whkmwbw91223550 2..1.613161.3.579.2.483522-65-7158Woymmwl98545208 2..1.307378.3.579.2.076755-32-1181Wzmijku3076998 2..1.909202.3.579.2.804354-56-9071Ysckvim4408378 2..1.597409.3.579.2.117463-44-7232Oxonvek8403633 2..1.989919.3.579.2.734283-83-2570Dwnfjsz3142811 2..1.732113.3.579.2.903237-04-1846Snvpbua3079486 2.0.1.417869.3.579.2.269737-41-2276Blsoysq8055196 2.0.1.383256.3.579.2.871459-70-5934Woushht45700464 2.16.840.1.035127.3.579.2.66105-95-9654Raqogoz52041526 2.16.840.1.289202.3.579.2.26458-41-6415Pjucfeq901711454 2.16.840.1.404356.3.579.2.61919-16-4787Dbabqir597069586 2.16.840.1.314083.3.579.2.29440-20-2114Vawqmpv680022776 2.16.840.1.872347.3.579.2.87357-84-0165Plqwpou899613205 2.16.840.1.316721.3.579.2.35914-08-9596Vbwmuvq574672914 2.840.1.385261.3.579.2.55213-41-1152Ikbjqvw222763895 2.16.840.1.954848.3.579.2.03771-97-9809Xozeumk792612517 2.16.840.1.219926.3.579.2.99634-22-8922Dnncpvf113496964 2.16.840.1.947267.3.579.2.39737-89-5862Xokhgem666986254 2.840.1.922673.3.579.2.97862-65-1357Etsoyur955472084 2.16.840.1.373004.3.579.2.90985-90-8713Gbaonof690078440 2.16840.1.348326.3.579.2.196 [id number] 1960Private Health [id number] 2.16.840.1.547765.19 [id number] [id number] Psychiatric [id number]-409p-5315-3rj89770vryiPablmamAupxubz Auto/[id number] 134p2972-4x5h-7pj7-9776-s61z4w2cmp97 Social History DateTypeDetailFacilityStart: 02-17-2014 End: 07-92-2569Zjgauiw smoking status NHISCurrent every day smokerMercy Health U[facility]ana Hospital: 72-97-0768Qmjajkm of tobacco useCigarette SmokerMercy Health [facility]: 02-17-2014 End: 44-16-5312Lcrzxsyqtl smoked current (pack per day) - ReportedMercy Health Urbana Hospital: 03-70-9030Cakvrlr intakeCurrent drinker of alcohol (finding)[facility]: 96-67-2561Phtoqyx CommentRareMCherrington Hospital: 28-16-9566Yhd Assigned At BirthNot on fileSan Martin, KYExposure to SARS-CoV-2 (event)Unable to assessAultman Hospitalart: 56-43-4559Tdaeyxo smoking statusSmoker (finding)[facility] start: 07-10-2023 End: 08-57-9075Qzb Assigned At BirthFemaleExec[facility] start: 11-15-2022 End: 47-59-2124Ttshsak smoking statusHeavy tobacco smoker (finding)[facility] Centertart: 07-10-2023 End: 62-92-2903Gmfzkzp use and exposureSmokeless tobacco non-userNOMS Healthcare Start: 07-10-2023 End: 58-66-3653Zwauxwj intakeLifetime non-drinker (finding)[facility] HealthcareWithin the last year, [...] drinks on 1 occasion?Less than monthlyNOMS HealthcareStart: 55-17-9029Wuy hard is it for you to pay for the very basics like food, housing, medical care, and heatingNot hard at allNOMS HealthcareDo you feel stress - tense, restless, [...] from your doctor or pharmacy [SILS]RarelyNOMS HealthcareSexFemale (finding)[facility] Start: 51-06-9921Lxd [facility]N [facility] HospitalNEGATED: Highlighted [facility] Medical Equipment Procedure CodeEquipment CodeEquipment Original TextEquipment IdentifierDates [id number]: 62-25-6439QOT TO TEST BLOOD SUGAR 4 TIMES [id number]: 07-07-2024 Functional Status GidzGgibldxyclRsffsdNsngsdwi10-19-4621Fiaapaw Health Questionnaire 2 item (PHQ- 2) [Reported][facility] Cancer CenterFxasndjeeo08-43-3630Pcvmidi falling or staying asleep, or sleeping too muchNot at all 01/26/2025 4:13 PM EDT Mychart, Generic Not at all [facility] Cancer CenterExghtnihex08-73-7180Fwtzeds tired or having little energyNot at all 01/26/2025 4:13 PM EDT Mychart, Generic [facility] at [facility] CenterUgpypccgns33-09-8810Irwu appetite or overeatingNot at all 01/26/2025 4:13 PM EDT Mychart, Generic Not at [facility] CenterHzkszozsjr15-56-4879Crnqojp bad about yourself-or that you are a failure or have let yourself or your family downNot at all 01/26/2025 4:13 PM EDT Mychart, Generic Not at [facility] CenterOykjiwsrwx11-17-7063Saupcps concentrating on things, such as reading the newspaper or watching televisionNot at all 01/26/2025 4:13 PM EDT Mychart, Generic Not at [facility] CenterKhtkngyfjd28-49-3743 Moving or speaking so slowly that other people could have noticed. Or the opposite - being so fidgety or restless that you have been moving around a lot more than usualNot at all 01/26/2025 4:13 PM EDT Mychart, Generic Not at [facility] CenterBmaipdqzke50-80-9628Nndigppm that you would be better off , or of hurting yourself in some wayNot at all 01/26/2025 4:13 PM EDT Mychart, Generic Not at [facility] CenterJrunygflgp85-02-0990Mtcjz score [AUDIT-C]1 08/26/2024 6:13 PM EST Mychart, GenericAlvin J. Siteman Cancer CenterBfdphdetqb61-26-6730Cmp often do you have a drink containing alcohol?Monthly or less 08/26/2024 6:13 PM EST Mychart, Generic Monthly or lessAlvin J. Siteman Cancer CenterOpubzslxjd26-66-0166Hyx many standard drinks containing alcohol do you have on a typical day?1 or 2 08/26/2024 6:13 PM EST Mychart, Generic 1 or 2NOMS Lrfceldlku00-30-4203Qln often do you have 6 or more drinks on 1 occasion?Never 08/26/2024 6:13 PM EST Mychart, Generic [facility] 52-85-7957Xjbcfbsvto StatusN/AExec[facility]rology of [facility]07-11-2024How difficult have these problems made it for you to do your work, take care of things at home, or get along with other people?Not difficult at all 01/17/2024 10:08 AM Marilyn Dunbar MA Not difficult at allAlvin J. Siteman Cancer CenterXeaigzuhym83-85-3402Jrlmjup Health Questionnaire 2 item (PHQ-2) [Reported][facility] Cancer CenterIqfdjqhgok33-81-9347Hxjxfaj Health Questionnaire 2 item (PHQ-2) [Reported][facility] Cancer CenterJqncuqbmuf46-53-8369Ifwidszszb StatusN/AExec[facility]08-01-2022Functional StatusN/AExec[facility] Clinical Notes 01-19-2022 to 04-06-2025 Note Date & LdmvAxlgJfyzacue39-65-1282 Evaluation note* Diagnosis Onset Date Resolution Status [...] use ofacuteOctober 2024 5:50pmVenous insufficiencyacuteOctober 2024 5:50pm [facility] Work Phone: 1(532) 454-450707-30-2025 NotePlease let her know her ECHO showed some improvement in the left side wall thickness, it was severely enlarged, now it is moderate. Important for good BP control to continue to improve this. Everything else looks good. Follow-up as planned in 6 months. Thanks![facility]07-24-2025 History of Present illness Narrative* Rain Souza [...] 96, on lantus 58 units bid, lispro 3-93-10ekxei plus ISS, Trulicity 4.5 mg weekly. meter give us error during download IM 03/2022 follow up visit on 03/14/2022, A1c in the office 9.4, bg 142, on lantus 58 units bid, lispro 1-32-23gwous plus ISS, Trulicity 4.5 mg weekly. lab [...] she has open ulcer in her lower tejdaa. SUBJECTIVE: MEDICATIONS: Current Outpatient Medications Medication Instructions [...] 25 mg, Oral, 2 times daily HYDROcodone-acetaminophen ([place]) 5-325 MG tablet 1 tablet, 3 times [...] Angiomyolipoma Anxiety and depression 07/10/2023 Asthma ([facility]) 07/10/2023 Body mass index (BMI) 50.0-59.9, adult ([facility] Cellulitis of left lower extremity Cervical cancer ([facility]) 09/17/2023 Chronic pain of both knees 09/17/2023 COPD (chronic obstructive pulmonary disease) ([facility]) 07/10/2023 COPD exacerbation ([facility]) 09/17/2023 Decreased functional mobility 09/17/2023 Diabetic neuropathy ([facility]) 07/10/2023 Dietary counseling and surveillance Edema 07/10/2023 Elevated sed rate Elevated WBC count Essential (primary) hypertension GERD (gastroesophageal reflux disease) 09/17/2023 Hyperlipidemia 09/17/2023 Hypertension 07/10/2023 Insomnia 09/17/2023 CHCF (current) use of insulin ([facility]) Lower extremity edema 09/17/2023 Mixed hyperlipidemia Morbid (severe) obesity due to excess calories ([facility]) Obstructive sleep apnea 07/10/2023 PAD (peripheral artery disease) 09/17/2023 Pancreatitis ([facility]) 09/17/2023 Pneumonia 09/17/2023 Proteinuria, unspecified Pulmonary hypertension ([facility]) 09/17/2023 Radiculopathy, lumbar region 09/17/2023 Tobacco [...] with long-term current use of insulin ([facility]) - POCT glycosylated hemoglobin (Hb A1C) docked [...] D deficiency Primary hypertension Insulin long-term use ([facility]) Hyperlipemia, mixed Microalbuminuria Class 3 severe obesity due to excess calories with serious comorbidity and body mass index (BMI) of50.0 to 59.9 in adult ([facility]) Diet and exercise reviewed with the patient Follow up in about 4 months (around 06/01/2025). documented in this encounterAlvin J. 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 * Mckayla Blas NP [...] 25 mg, Oral, 2 times daily HYDROcodone-acetaminophen ([place]) 5-325 MG tablet 1 tablet, 3 times [...] Angiomyolipoma Anxiety and depression 07/10/2023 Asthma ([facility]) 07/10/2023 Body mass index (BMI) 50.0-59.9, [place] Cellulitis of left lower extremity Cervical cancer ([facility]) 09/17/2023 Chronic pain of both knees 09/17/2023 COPD (chronic obstructive pulmonary disease) ([facility]) 07/10/2023 COPD exacerbation ([facility]) 09/17/2023 Decreased functional mobility 09/17/2023 Diabetic neuropathy ([facility]) 07/10/2023 Dietary counseling and surveillance Edema 07/10/2023 Elevated sed rate Elevated WBC count Essential (primary) hypertension GERD (gastroesophageal reflux disease) 09/17/2023 Hyperlipidemia 09/17/2023 Hypertension 07/10/2023 Insomnia 09/17/2023 [facility] (current) use of insulin ([facility]) Lower extremity edema 09/17/2023 Mixed hyperlipidemia Morbid (severe) obesity due to excess calories [place] [place] Obstructive sleep apnea 07/10/2023 PAD (peripheral artery disease) 09/17/2023 Pancreatitis ([facility]) 09/17/2023 Pneumonia 09/17/2023 Proteinuria, unspecified Pulmonary hypertension ([facility]) 09/17/2023 Radiculopathy, lumbar region 09/17/2023 Tobacco [...] This Visit Diabetic neuropathy (HCC) Continue with lyangelito, pain mgmt is prescribing OARRS reviewed Fu in 3 months Goal: tighter glucose control, this has been improving, latest A1c is 7.4%!!! 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 Hypertension Please check [...] with long-term current use of insulin ([facility]) Check blood sugars daily, notify if [...] MG tablet Pulmonary hypertension (HCC) Has seen [facility] Cardiology Hyperlipidemia On statin therapy Check labs [...] to excess calories ([facility]) Discussed with patient their BMI (actual, [...] EDTAssociated Problem(s): Pulmonary hypertension (HCC) Has seen [facility] Cardiology * Mckayla Blas NP - 01/26/2025 [...] on a yearly basis documented in this encounterAlvin J. Siteman Cancer [id number] Instructions* Patient Instructions* Mckayla Blas NP - 01/26/2025 6:00 PM EDT Please call the [facility] to schedule your mammogram: [phone] ext [phone] documented in this encounterAlvin J. Siteman Cancer [id number] NoteCardiovascular Medicine [facility] SUBJECTIVE Chief Complaint Patient presents with Congestive Heart Failure Hypertension Hyperlipidemia Mitzi Macias is a 54 y.o. female here for follow-up. PMHx: HFpEF, HTN, HLD, DM, longstanding heavy smoker, COPD, DANIEL, morbid obesity HPI 01/06/2025 Since last seen she was admitted to [facility] for AMS on 12/05/2024. She was [...] long-term current use of insulin ([facility]/HCC) Unilateral primary osteoarthritis, right hip Vaginal yeast infection Venous insufficiency Bad odor of urine Critical limb ischemia of right lower extremity ([facility]/HCC) Hyperpigmentation of skin 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 2 diabetes mellitus ([facility]/HCC) Myelolipoma of adrenal gland Venous ulcer of right leg ([facility]/HCC) Chronic diastolic heart failure ([facility]/HCC) Antibiotic-induced yeast infection Cellulitis of left lower extremity Cigarette nicotine dependence without complication Fever 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 ([facility]) [facility] current use of inhaled steroid Vitamin D deficiency, unspecified Vitamin deficiency Past Medical History: Diagnosis Date COPD (chronic obstructive pulmonary disease) ([facility]) Diabetes mellitus ([facility]) Hyperlipidemia Hypertension Sleep apnea Family History [...] , Rfl: ergocalciferol (Vitamin D-2) 1.25 MG (42458 Units) capsule, Take 1.25 mg by mouth., [...] and at bedtime., Disp: , Rfl: HYDROcodone-acetaminophen ([place]) 5-325 mg tablet, TAKE 1 TABLET BY MOUTH THREE TIMES A DAY NEEDED FOR PAIN MUST LAST 30 DAYS, Disp: , Rfl: insulin aspart (NovoLOG) 100 unit/mL (3 mL) injection pen, Novolog Flexpen U-100 Insulin aspart 100 unit/mL (3 mL) subcutaneous, Disp: , Rfl: insulin glargine (Lantus Solostar U-100 Insulin) 100 unit/mL (3 mL) injection pen (more content not included)...[facility]07-01-2025 NotePatient is here today for a 6 [...] and weight gain. Cardiovascular: Positive for leg swelling.[facility] 12-09-2024 History of Present illness Narrative* Mckayla [...] bad light. She was ultimately taken to [facility] ER, no tox screen was done [...] 25 mg, Oral, 2 times daily HYDROcodone-acetaminophen (Wynnewood) 5-325 MG tablet 1 tablet, 3 times [...] 09/17/2023 Angiomyolipoma Anxiety and depression ([facility]) 07/10/2023 Asthma 07/10/2023 Body mass index (BMI) 50.0-59.9, adult ([facility]) Cellulitis of left lower extremity Cervical cancer ([facility]) 09/17/2023 Chronic pain of both knees 09/17/2023 COPD (chronic obstructive pulmonary disease) ([facility]) 07/10/2023 COPD exacerbation ([facility]) 09/17/2023 Decreased functional mobility 09/17/2023 Diabetic neuropathy ([facility]) 07/10/2023 Dietary counseling and surveillance Edema 07/10/2023 Elevated sed rate Elevated WBC count Essential (primary) hypertension ([facility]) GERD (gastroesophageal reflux disease) 09/17/2023 Hyperlipidemia ([facility]) 09/17/2023 Hypertension ([facility]) 07/10/2023 Insomnia 09/17/2023 [facility] (current) use of insulin ([facility]) Lower extremity edema 09/17/2023 Mixed hyperlipidemia ([facility]) Morbid (severe) obesity due to excess calories ([facility]) Obstructive sleep apnea 07/10/2023 PAD (peripheral artery disease) ([facility]) 09/17/2023 Pancreatitis 09/17/2023 Pneumonia 09/17/2023 Proteinuria, unspecified Pulmonary hypertension ([facility]) 09/17/2023 Radiculopathy, lumbar region 09/17/2023 Tobacco user 09/17/2023 Type 2 diabetes mellitus with complication, with long-term current use of insulin ([facility]) 07/10/2023 Unilateral primary osteoarthritis, right hip 09/17/2023 [...] Items Addressed This Visit Hypertension ([facility]) Please check blood pressure daily and record DASH diet Limit caffeine Take medication as directed Contact office if chest pain, pressure, dizziness, shortness of breath, swelling legs Recommend slow position changes Current meds: hydralazine, lisinopril, Type 2 diabetes mellitus with complication, with long-term current use of insulin ([facility]) Check blood sugars daily, notify if [...] her steroids Anxiety and depression ([facility]) Current meds: elavil, duloxtine, COPD exacerbation ([facility]) Recent ER visit for unresponsiveness , found to have fever and elevated WBC Sent home with steroids and atb Breathing is better and she feels back to her normal baseline Does have home O2, she is not wearing this today Pulmonary hypertension (CMS/HCC) Has seen [facility] Cardiology Morbid (severe) obesity due to excess calories ([facility]) Discussed with patient their BMI (actual, [...] 7:24 AM EDTAssociated Problem(s): Anxiety and depression ([facility]) Current meds: elavil, duloxtine, * Mckayla Blas NP - 12/09/2024 7:24 AM EDTAssociated Problem(s): Type 2 diabetes mellitus with complication, with long-term current use of insulin ([facility]) Check blood sugars daily, notify if [...] EDTAssociated Problem(s): Pulmonary hypertension (CMS/HCC) Has seen [facility] Cardiology * Mckayla Blas NP - 12/09/2024 [...] not wearing this today documented in this encounterAlvin J. Siteman Cancer [id number] Instructions* Patient Instructions* Mckayla Blas NP - 12/09/2024 10:00 AM EDT Keep appt with wound care today Keep fu with me, sooner if needed documented in this encounterAlvin J. Siteman Cancer [id number] History of Present illness Narrative* Mckayla Blas [...] PM EDTAssociated Problem(s): PAD (peripheral artery disease) ([facility]) Asa, statin Quit smoking BP and [...] 25 mg, Oral, 2 times daily HYDROcodone-acetaminophen ([place]newood) 5-325 MG tablet 1 tablet, 3 times [...] 09/17/2023 Angiomyolipoma Anxiety and depression ([facility]) 07/10/2023 Asthma 07/10/2023 Body mass index (BMI) 50.0-59.9, adult ([facility]) Cellulitis of left lower extremity Cervical cancer ([facility]) 09/17/2023 Chronic pain of both knees 09/17/2023 COPD (chronic obstructive pulmonary disease) ([facility]) 07/10/2023 COPD exacerbation ([facility]) 09/17/2023 Decreased functional mobility 09/17/2023 Diabetic neuropathy ([facility]) 07/10/2023 Dietary counseling and surveillance Edema 07/10/2023 Elevated sed rate Elevated WBC count Essential (primary) hypertension ([facility]) GERD (gastroesophageal reflux disease) 09/17/2023 Hyperlipidemia ([facility]) 09/17/2023 Hypertension ([facility]) 07/10/2023 Insomnia 09/17/2023 [facility] (current) use of insulin ([facility]) Lower extremity edema 09/17/2023 Mixed hyperlipidemia ([facility]) Morbid (severe) obesity due to excess calories ([facility]) Obstructive sleep apnea 07/10/2023 PAD (peripheral artery disease) ([facility]) 09/17/2023 Pancreatitis 09/17/2023 Pneumonia 09/17/2023 Proteinuria, unspecified Pulmonary hypertension ([facility]) 09/17/2023 Radiculopathy, lumbar region 09/17/2023 Tobacco user 09/17/2023 Type 2 diabetes mellitus with complication, with long-term current use of insulin ([facility]) 07/10/2023 Unilateral primary osteoarthritis, right hip 09/17/2023 [...] Addressed This Visit Diabetic neuropathy ([facility]) - Primary Continue with cintia hudson mgmt is prescribing OARRS reviewed Fu in 3 months Goal: tighter glucose control, this has been improving, latest A1c is 7.4%!!! Hypertension ([facility]) Please check blood pressure daily and record DASH diet Limit caffeine Take medication as directed Contact office if chest pain, pressure, dizziness, shortness of breath, swelling legs Recommend slow position changes Current meds: hydralazine, lisinopril, Relevant Medications hydrALAZINE (Apresoline) 25 MG tablet lisinopril 20 MG tablet Type 2 diabetes mellitus with complication, with long-term current use of insulin ([facility]) Check blood sugars daily, notify if [...] 81 MG chewable tablet Anxiety and depression ([facility]/HCC) Current meds: elavil, duloxtine, Relevant Medications DULoxetine [...] Morbid (severe) obesity due to excess calories (CMS/[facility]) Discussed with patient their BMI (actual, [...] mounjaro for DM Chronic diastolic heart failure ([facility]/HCC) Current meds; asa, farxiga, lasix, hydralazine, lisinopril, Follows with cardilogy Reviewed 08/02 notes Cigarette nicotine dependence without complication Is currently using chantix, and is doing well, less desire, smoking less Vitamin D deficiency, unspecified Relevant Medications ergocalciferol (Vitamin D2) 1.25 MG (71930 UT) capsule Gastro-esophageal reflux disease without esophagitis [...] latest A1c is 7.4%!!! documented in this [facility]04-21-2025 Instructions* Patient Instructions* Mckayla Blas NP - 10/27/2024 2:00 PM EDT No dose changes in meds You will be due for mammogram I will send order to [facility], they should call you to schedule If no call, please call [phone] ext [phone] documented in this encounterAlvin J. Siteman Cancer [id number] History of Present illness Narrative* Rain Souza [...] 96, on lantus 58 units bid, lispro [id number] plus ISS, Trulicity 4.5 mg weekly. meter give us error during download IM 03/2022 follow up visit on 03/14/2022, A1c in the office 9.4, bg 142, on lantus 58 units bid, lispro [id number] plus ISS, Trulicity 4.5 mg weekly. lab [...] or chew. ergocalciferol (Vitamin D2) 1.25 MG (93070 UT) capsule TAKE 1 CAPSULE BY MOUTH [...] 25 mg, Oral, 2 times daily HYDROcodone-acetaminophen ([place]) 5-325 MG tablet 1 tablet, 3 times [...] 09/17/2023 Angiomyolipoma Anxiety and depression ([facility]) 07/10/2023 Asthma ([facility]) 07/10/2023 Body mass index (BMI) 50.0-59.9, adult ([facility]) Cellulitis of left lower extremity Cervical cancer ([facility]) 09/17/2023 Chronic pain of both knees 09/17/2023 COPD (chronic obstructive pulmonary disease) [facility] 07/10/2023 COPD exacerbation ([facility]) 09/17/2023 Decreased functional mobility 09/17/2023 Diabetic neuropathy ([facility]) 07/10/2023 Dietary counseling and surveillance Edema 07/10/2023 Elevated sed rate Elevated WBC count Essential (primary) hypertension ([facility]) GERD (gastroesophageal reflux disease) 09/17/2023 Hyperlipidemia ([facility]) 09/17/2023 Hypertension ([facility]) 07/10/2023 Insomnia 09/17/2023 [facility] (current) use of insulin ([facility]) Lower extremity edema 09/17/2023 Mixed hyperlipidemia ([facility]) Morbid (severe) obesity due to excess calories ([facility]) Obstructive sleep apnea 07/10/2023 PAD (peripheral artery disease) ([facility]) 09/17/2023 Pancreatitis 09/17/2023 Pneumonia 09/17/2023 Proteinuria, unspecified Pulmonary hypertension ([facility]) 09/17/2023 Radiculopathy, lumbar region 09/17/2023 Tobacco user 09/17/2023 Type 2 diabetes mellitus with complication, with long-term current use of insulin ([facility]) 07/10/2023 Unilateral primary osteoarthritis, right hip 09/17/2023 [...] long-term current use of insulin ([facility]) - POCT glucose manually resulted - [...] 4 months (around 02/07/2025). documented in this encounterAlvin J. Siteman Cancer [id number] History of Present illness Narrative* Mckayla Blas [...] or chew. ergocalciferol (Vitamin D2) 1.25 MG (63849 UT) capsule TAKE 1 CAPSULE BY MOUTH [...] 25 mg, Oral, 2 times daily HYDROcodone-acetaminophen ([place]) 5-325 MG tablet 1 tablet, 3 times [...] 09/17/2023 Angiomyolipoma Anxiety and depression ([facility]) 07/10/2023 Asthma ([facility]) 07/10/2023 Body mass index (BMI) 50.0-59.9, adult ([facility]) Cellulitis of left lower extremity Cervical cancer ([facility]) 09/17/2023 Chronic pain of both knees 09/17/2023 COPD (chronic obstructive pulmonary disease) ([facility]) 07/10/2023 COPD exacerbation ([facility]) 09/17/2023 Decreased functional mobility 09/17/2023 Diabetic neuropathy ([facility]) 07/10/2023 Dietary counseling and surveillance Edema 07/10/2023 Elevated sed rate Elevated WBC count Essential (primary) hypertension ([facility]) GERD (gastroesophageal reflux disease) 09/17/2023 Hyperlipidemia ([facility]) 09/17/2023 Hypertension ([facility]) 07/10/2023 Insomnia 09/17/2023 [facility] (current) use of insulin ([facility]) Lower extremity edema 09/17/2023 Mixed hyperlipidemia ([facility]) Morbid (severe) obesity due to excess calories ([facility]) Obstructive sleep apnea 07/10/2023 PAD (peripheral artery disease) ([facility]) 09/17/2023 Pancreatitis 09/17/2023 Pneumonia 09/17/2023 Proteinuria, unspecified Pulmonary hypertension ([facility]) 09/17/2023 Radiculopathy, lumbar region 09/17/2023 Tobacco user 09/17/2023 Type 2 diabetes mellitus with complication, with long-term current use of insulin ([facility]) 07/10/2023 Unilateral primary osteoarthritis, right hip [...] Addressed This Visit Diabetic neuropathy ([facility]) Continue with cintia hudson is prescribing OARRS reviewed Fu in 3 months Goal: tighter glucose control Hypertension ([facility]) Please check blood pressure daily and [...] long-term current use of insulin ([facility]) Check blood sugars daily, notify if [...] of the risks of continued smoking: stroke, CO, all forms of cancer, lung disease, and [...] Uric acid Venous ulcer of right leg (CMS/[facility]) Continue with wound for treatment Had recent [...] to excess calories ([facility]) Discussed with patient their BMI (actual, [...] DM Body mass index (BMI) 50.0-59.9, adult (CMS/[facility]) Chronic diastolic heart failure (CMS/HCC) Current meds; [...] of the risks of continued smoking: stroke, CO, all forms of cancer, lung disease, and [...] long-term current use of insulin ([facility]) Check blood sugars daily, notify if [...] to excess calories ([facility]) Discussed with patient their BMI (actual, [...] AM ESTAssociated Problem(s): Chronic diastolic heart failure ([facility]/HCC) Current meds; asa, farxiga, lasix, hydralazine, lisinopril, Follows with [facility] Reviewed 08/02 notes * Mckayla Blas NP - 08/27/2024 7:31 AM ESTAssociated Problem(s): COPD (chronic obstructive pulmonary disease) ([facility]) Follows with verena Needs smoking cessation Current meds: duoneb, albuterol, daliresp, * Mckayla Blas NP - 08/27/2024 7:30 AM ESTAssociated Problem(s): Asthma ([facility]) Current meds: albuterol, duoneb, 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 Siteman Cancer [id number] NoteUT Cardiology - [facility] Subjective Mitzi Macias is a [...] COPD (chronic obstructive pulmonary disease) ([facility]) Diabetes mellitus ([facility]) Hyperlipidemia Hypertension Sleep apnea Past Surgical [...] , Rfl: ergocalciferol (Vitamin D-2) 1.25 MG (77140 Units) capsule, Take 1.25 mg by mouth., [...] and at bedtime., Disp: , Rfl: HYDROcodone-acetaminophen ([place]) 5-325 mg tablet, TAKE 1 TABLET BY [...] SUBCUTANEOUSLY TWICE DAILY, Disp: (more content not included)...[facility]01-06-2025 History of Present illness Narrative* Mckayla Blas [...] or chew. ergocalciferol (Vitamin D2) 1.25 MG (81895 UT) capsule TAKE 1 CAPSULE BY MOUTH ONE TIME PER WEEK furosemide (LASIX) 40 mg, Oral, Daily furosemide (LASIX) 20 mg, Oral, Daily PRN, Take in the afternoon as needed hydrALAZINE (APRESOLINE) 25 mg, Oral, 2 times daily HYDROcodone-acetaminophen ([place]) 5-325 MG tablet 1 tablet, 3 times [...] 09/17/2023 Angiomyolipoma Anxiety and depression ([facility]) 07/10/2023 Asthma ([facility]) 07/10/2023 Body mass index (BMI) 50.0-59.9, adult ([facility]) Cellulitis of left lower extremity Cervical cancer ([facility]) 09/17/2023 Chronic pain of both knees 09/17/2023 COPD (chronic obstructive pulmonary disease) ([facility]) 07/10/2023 COPD exacerbation ([facility]) 09/17/2023 Decreased functional mobility 09/17/2023 Diabetic neuropathy ([facility]) 07/10/2023 Dietary counseling and surveillance Edema 07/10/2023 Elevated sed rate Elevated WBC count Essential (primary) hypertension ([facility]) GERD (gastroesophageal reflux disease) 09/17/2023 Hyperlipidemia ([facility] [facility] 09/17/2023 Hypertension ([facility]) 07/10/2023 Insomnia 09/17/2023 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 ([facility] Lower extremity edema 09/17/2023 Mixed hyperlipidemia ([facility]) Morbid (severe) obesity due to excess calories ([facility] Obstructive sleep apnea 07/10/2023 PAD (peripheral artery disease) ([facility]) 09/17/2023 Pancreatitis 09/17/2023 Pneumonia 09/17/2023 Proteinuria, unspecified Pulmonary hypertension ([facility]) 09/17/2023 Radiculopathy, lumbar region 09/17/2023 Tobacco user 09/17/2023 Type 2 diabetes mellitus with complication, with long-term current use of insulin ([facility]) 07/10/2023 Unilateral primary osteoarthritis, right hip [...] Addressed This Visit Diabetic neuropathy ([facility]) Continue with tristan EAST reviewed Fu in 3 months COPD (chronic obstructive pulmonary disease) ([facility]) Stable at this time, no changes in meds Encouraged smoking cessation Cont with dr Yañez Hypertension ([facility]) - Primary Please check blood pressure daily and record DASH diet Limit caffeine Take medication as directed Contact office if chest pain, pressure, dizziness, shortness of breath, swelling legs Recommend slow position changes Current meds: hydralazine, lisinopril, Type 2 diabetes mellitus with complication, with long-term current use of insulin ([facility]) Check blood sugars daily, notify if [...] of the risks of continued smoking: stroke, CO, all forms of cancer, lung disease, and [...] ischemia of right lower extremity ([facility]/HCC) Saw vascular, does have narrowing in arteries in legs, and thus the wounds not healing At this point they strongly urge to quit smoking or risk limb amputation Cont asa and statin Also good blood pressure and sugar control Venous ulcer of right leg ([facility]HCC) Encounter for smoking cessation counseling Relevant Medications [...] of the risks of continued smoking: stroke, CO, all forms of cancer, lung disease, and [...] long-term current use of insulin ([facility]) Check blood sugars daily, notify if [...] Fu in 3 months documented in this encounterAlvin J. Siteman Cancer [id number] Hospital Discharge instructions Patient Education 06/11/2024 10:44:08 [...] require a prescription. You can also purchase qqku-yop-cgdbkho medicines. Medicines may have nicotine in them [...] and encouragement. Call telephone quitlines, such as 7-483-FLNM-NOW, reach out to support groups, or work [...] provider. Document Revised: 06/16/2022 Document Reviewed: 06/16/2022 [employer] Patient Education 2023 [employer]. 06/11/2024 10:39:22 Dietary Guidelines to Help Prevent [...] include: ?8 oz (237 mL) of milk, bsdnerp-qilvsgszxmfy-ybgcf milk, and calcium- fortifiedfruit juice. Calcium-fortified means [...] ?Spinach (cooked), rhubarb, beets, sweet potatoes, and [place]an chard. ?Peanuts. ?Potato chips, mosotho fries, and baked potatoes with skin on. ?Nuts and nut products. ?Chocolate. If you regularly take a diuretic medicine, make sure to eat at least 1 or 2 servings of fruits or vegetables that are high in potassium each day. These include: ?Avocado. ?Banana. ?[place], prune, carrot, or tomato juice. ?Baked potato. [...] magnesium, fish oil, or vitamin B6. Take anma-cls-qiyrnrt and prescription medicines only as told by [...] provider. Document Revised: 10/05/2022 Document Reviewed: 10/05/2022 [employer] Patient Education 2023 [employer]. Follow Up Care 05/06/2024 08:24:56 With:REGLA PHIPPS, Elbert Joya, URL Address: [facility] [address] , [place] [address]- When: Unknown [facility] 12-04-2024 NotePatient Education Nephrology Dietary Guidelines to [...] ? 8 oz (237 mL) of milk, zaqpnkj-iyzeelukvcgd-jtjgu milk, and calcium- fortifiedfruit juice. Calcium-fortified means [...] Spinach (cooked), rhubarb, beets, sweet potatoes, and [place]an chard. ? Peanuts. ? Potato chips, mosotho fries, and baked potatoes with skin on. ? Nuts and nut products. ? Chocolate. ??? If you regularly take a diuretic medicine, make sure to eat at least 1 or 2 servings of fruits or vegetables that are high in potassium each day. These include: ? Avocado. ? Banana. ? [place], prune, carrot, or tomato juice. ? Baked [...] fish oil, or vitamin B6. ??? Take kgap-ugy-rnudxub and prescription medicines only as told by your health (more content not included)...[facility]11-19-2024 History of Present illness Narrative* Rain [...] 96, on lantus 58 units bid, lispro [id number] plus ISS, Trulicity 4.5 mg weekly. meter give us error during download IM 03/2022 follow up visit on 03/14/2022, A1c in the office 9.4, bg 142, on lantus 58 units bid, lispro 8-36-25cycks plus ISS, Trulicity 4.5 mg weekly. lab [...] or chew. ergocalciferol (Vitamin D2) 1.25 MG (05834 UT) capsule TAKE 1 CAPSULE BY MOUTH ONE TIME PER WEEK furosemide (LASIX) 20 mg, Oral, Daily PRN, Take in the afternoon as needed furosemide (LASIX) 40 mg, Oral, Daily Glucose Blood (ACCU-CHEK JAQUI PLUS ) 4 times daily hydrALAZINE (APRESOLINE) 25 mg, Oral, 2 times daily HYDROcodone-acetaminophen ([place]newood) 5-325 MG tablet 1 tablet, 3 times [...] 42 tablet [facility] ALLERGIES: No Known Allergies Past Medical History: Diagnosis Date Abnormal chest CT Albuminuria 09/17/2023 Angiomyolipoma Anxiety and depression ([facility]) 07/10/2023 Asthma ([facility]) 07/10/2023 Body mass index (BMI) 50.0-59.9, adult ([facility]) Cellulitis of left lower extremity Cervical cancer ([facility]) 09/17/2023 Chronic pain of both knees 09/17/2023 COPD (chronic obstructive pulmonary disease) ([facility] 07/10/2023 COPD exacerbation ([facility] 09/17/2023 Decreased functional mobility 09/17/2023 Diabetic neuropathy ([facility]) 07/10/2023 Dietary counseling and surveillance Edema 07/10/2023 Elevated sed rate Elevated WBC count GERD (gastroesophageal reflux disease) 09/17/2023 Hyperlipidemia ([facility]) 09/17/2023 Hypertension ([facility] 07/10/2023 Insomnia 09/17/2023 CHCF (current) use of insulin ([facility] Lower extremity edema 09/17/2023 Morbid (severe) obesity due to excess calories ([facility] Obstructive sleep apnea 07/10/2023 PAD (peripheral artery disease) ([facility] 09/17/2023 Pancreatitis 09/17/2023 Pneumonia 09/17/2023 Proteinuria, unspecified Pulmonary hypertension ([facility]) 09/17/2023 Radiculopathy, lumbar region 09/17/2023 Tobacco user 09/17/2023 Type 2 diabetes mellitus with complication, with long-term current use of insulin ([facility] 07/10/2023 Unilateral primary osteoarthritis, right hip 09/17/2023 [...] long-term current use of insulin ([facility]) - POCT glucose manually resulted - POCT glycosylated hemoglobin (Hb A1C) docked device We will continue with Lantus 58, lispro 02/16/12 according to meal size, Mounjaro 15 mg once weekly, Farxiga 5 mg once a day Encounter for dietary consultation Vitamin D deficiency Primary hypertension ([facility]) To follow with her PCP Insulin long-term use ([facility]) Hyperlipemia, mixed ([facility]) Continue with Zocor 10 mg once daily Microalbuminuria Class 3 severe obesity due to excess calories with serious comorbidity and body mass index (BMI) of50.0 to 59.9 in adult ([facility]) Diet and exercise reviewed with the patient Follow up in about 3 months (around 08/27/2024). documented in this encounterAlvin J. Siteman Cancer [id number] History of Present illness Narrative* Mckayla Blas [...] long-term current use of insulin ([facility]) Check blood sugars daily, follow w [...] - 04/14/2024 11:42 AM EDTAssociated Problem(s): Hypertension ([facility]) Stable on current meds Refill meds * Mckayla Blas NP - 04/14/2024 11:42 AM EDTAssociated Problem(s): COPD (chronic obstructive pulmonary disease) ([facility]) Stable at this time, no changes in meds Encouraged smoking cessation Cont with dr Yañez * Mckayla Blas NP - 04/14/2024 11:41 AM EDTAssociated Problem(s): Diabetic neuropathy (CMS/HCC) Continue with tristan AILEENCAMERONHenna reviewed Fu in 3 months * MARILYN [...] insulin injections and oral agent (dual therapy) (mounjaro). She never participates in exercise. Her overall blood glucose range is 130-140 mg/dl. An TILA inhibitor /angiotensin II receptor eun is being taken. She does not see a coremaking supervisor.Eye exam is not current. Hypertension This [...] or chew. ergocalciferol (Vitamin D2) 1.25 MG (34847 UT) capsule TAKE 1 CAPSULE BY MOUTH ONE TIME PER WEEK furosemide (LASIX) 20 mg, Oral, Daily PRN, Take in the afternoon as needed furosemide (LASIX) 40 mg, Oral, Daily Glucose Blood (ACCU-CHEK JAQUI PLUS ) 4 times daily HumaLOG KWIKPEN 100 UNIT/ML injection Subcutaneous hydrALAZINE (APRESOLINE) 25 mg, Oral, 2 times daily HYDROcodone-acetaminophen ([place]) 5-325 MG tablet 1 tablet, 3 times [...] 42 tablet [facility] ALLERGIES: No Known Allergies REVIEW [...] CT Albuminuria 09/17/2023 Angiomyolipoma Anxiety and depression ([facility]) 07/10/2023 Asthma ([facility]) 07/10/2023 Cellulitis of left lower extremity Cervical cancer ([facility]) 09/17/2023 Chronic pain of both knees 09/17/2023 COPD (chronic obstructive pulmonary disease) ([facility] 07/10/2023 COPD exacerbation ([facility] 09/17/2023 Decreased functional mobility 09/17/2023 Diabetic neuropathy ([facility]) 07/10/2023 Edema 07/10/2023 Elevated sed rate Elevated WBC count GERD (gastroesophageal reflux disease) 09/17/2023 Hyperlipidemia ([facility] 09/17/2023 Hypertension ([facility]) 07/10/2023 Insomnia 09/17/2023 Lower extremity edema 09/17/2023 Obstructive sleep apnea 07/10/2023 PAD (peripheral artery disease) ([facility]) 09/17/2023 Pancreatitis 09/17/2023 Pneumonia 09/17/2023 Pulmonary hypertension ([facility]) 09/17/2023 Radiculopathy, lumbar region 09/17/2023 Tobacco user 09/17/2023 Type 2 diabetes mellitus with complication, with long-term current use of insulin ([facility]) 07/10/2023 Unilateral primary osteoarthritis, right hip [...] Addressed This Visit Diabetic neuropathy ([facility]) Continue with tristan EAST reviewed Fu in 3 months Relevant Medications pregabalin (Lyrica) 300 MG capsule COPD (chronic obstructive pulmonary disease) ([facility]) - Primary Stable at this time, no changes in meds Encouraged smoking cessation Cont with dr Yañez Hypertension ([facility]) Stable on current meds Refill meds Relevant Medications hydrALAZINE (Apresoline) 25 MG tablet lisinopril 20 MG tablet Type 2 diabetes mellitus with complication, with long-term current use of insulin ([facility]) Check blood sugars daily, follow w [...] 81 MG chewable tablet Anxiety and depression ([facility]) Relevant Medications DULoxetine (Cymbalta) [address] capsule Bilateral lower extremity edema Stable on current meds Insomnia Relevant Medications amitriptyline (Elavil) 25 MG tablet Tobacco user Urged to quit Non-seasonal allergic rhinitis Relevant Medications cetirizine (ZyrTEC) 10 MG tablet Hyperpigmentation of skin Will try cerevue ointment to see if helps Other Visit Diagnoses Type 2 diabetes mellitus with unspecified complications ([facility]) Relevant Medications dapagliflozin (Farxiga) 10 MG Gastro-esophageal reflux disease without esophagitis Relevant Medications omeprazole (PriLOSEC) [address] capsule Edema, unspecified Relevant Medications potassium chloride ER (Micro-K) 10 MEQ ER capsule Edema Relevant Medications potassium chloride ER (Micro-K) 10 MEQ ER capsule Chronic obstructive pulmonary disease, unspecified ([facility]) Relevant Medications Roflumilast 500 MCG tablet documented in this encounterAlvin J. Siteman Cancer [id number] Hospital Discharge instructions Patient Education 11/15/2022 14:09:21 [...] include: ?8 oz (237 mL) of milk, lrjhhlq-hhsexttvqifd-xxphz milk, and calcium- fortifiedfruit juice. Calcium-fortified means [...] ?Spinach (cooked), rhubarb, beets, sweet potatoes, and [place]an chard. ?Peanuts. ?Potato chips, mosotho fries, and baked potatoes with skin on. ?Nuts and nut products. ?Chocolate. If you regularly take a diuretic medicine, make sure to eat at least 1 or 2 servings of fruits or vegetables that are high in potassium each day. These include: ?Avocado. ?Banana. ?[place], prune, carrot, or tomato juice. ?Baked potato. [...] magnesium, fish oil, or vitamin B6. Take zyws-jei-iabfhsu and prescription medicines only as told by [...] provider. Document Revised: 03/06/2022 Document Reviewed: 03/06/2022 [employer] Patient Education 2022 [employer]. Follow Up Care 02/06/2022 11:44:09 With:SILVIA HOWELL, GAVIOTA Webb, URL Address: [address] [place] [address] When: Unknown [facility] [place] 02-16-2023 NoteCONSULTATION CONSULTATION DATE: 08/24/2022 HISTORY OF [...] We maintain her on pain medication with [place] 5/325 t.i.d., diclofenac 75 mg b.i.d. Her [...] her at this point. A refill for [place] 5/325 t.i.d. and diclofenac 75 mg b.i.d. will be sent to the pharmacy. Vitamin compliance and nutrition were discussed and enforced. I did highly encourage her to use exercise bands to increase the strength in her lower extremities. We will see her in three months' time, unless otherwise indicated, and patient agrees.[facility] [id number] NoteCONSULTATION CONSULTATION DATE: 05/11/2022 This 51-year-old female [...] 150. Medications include Lyrica 300 mg b.i.d., [place] 5/325 t.i.d., diclofenac 75 mg b.i.d. and [...] her medications today. We will maintain Lyrica, [place] and diclofenac at the set dose and frequency. We will follow-up in the clinic in three months' time. The patient is in agreement to this. Vitamin importance and nutrition were discussed.[facility] [id number] NoteCONSULTATION CONSULTATION DATE: 04/20/2022 HISTORY OF PRESENT [...] medications include Tylenol, Lyrica 300 mg b.i.d., [place] 5/325 t.i.d., amitriptyline, diclofenac and duloxetine. Patient's [...] will be followed up in the clinic.[facility] [id number] Evaluation note* Encounter Date Diagnosis Assessment Notes [...] to the DANIEL. Thrombocytopenia is unclear etiology. [facility] Other 08-15-2022 Evaluation note* Encounter Date Diagnosis [...] follow with Dr. Souza and Dr. Arauz. [facility] Other 08-01-2022 Hospital Discharge instructions Patient Education [...] fried and sweet foods. General instructions Take gkkt-tsu-qdsbptm and prescription medicines only as told by [...] 04/21/2010 Document Revised: 10/16/2019 Document Reviewed: 07/11/2018 [employer] Patient Education 2020 [employer]. Follow Up Care 01/05/2022 12:02:03 With:REGLA PHIPPS, Elbert Joya, URL Address: [facility] [address], [place] [phone] When:Within 6 Month(s) Comments:w/ repeat CT A/P [facility] 07-14-2022 NoteCONSULTATION PROCEDURE DATE: 01/19/2022 PRE [...] pattern and the patient tolerated it well. [facility] Signed and Approved by: GIL VALENZUELA . 01/27/2022 14:15:00[facility]07-14-2022 NoteCONSULTATION CONSULTATION DATE: 01/19/2022 This is a [...] today. Medications include Lyrica 300 mg b.i.d., [place] 5/325 t.i.d., diclofenac 75 mg b.i.d. and [...] in three months' time unless otherwise indicated. [facility] Signed and Approved by: GIL VALENZUELA . 01/27/2022 14:15:00[facility] Future Appointments Appointment Date:08/14/2022 09:15:00 AM Scheduled Provider:Elbert ARAUZ MD Location:[facility] Appointment Type:URO Office Visit [facility] evaluation + Plan note Future Appointments Appointment Date:04/22/2024 10:00:00 AM Scheduled Provider:GAVIOTA ADAMES PA-C Location:[facility] Appointment Type:URO Office Visit [facility] evaluation note* Diagnosis Type 2 diabetes mellitus with unspecified complications ([facility]/HCC) Edema, unspecified Edema documented in this encounter [facility]* Diagnosis Vaginal yeast infection- Primary Candidiasis of vulva and vagina documented in this encounter [facility]* Diagnosis Primary hypertension (CMS/HCC)- Primary [...] Other dyschromia documented in this encounter [facility]* Diagnosis Obstructive sleep apnea- Primary [...] with type 2 diabetes mellitus ([facility]) Chronic obstructive pulmonary disease, unspecified ([facility]) Pulmonary emphysema, unspecified emphysema type ([facility]) Bilateral lower extremity edema Tobacco user Tobacco use disorder Hyperpigmentation of skin Other dyschromia Type 2 diabetes mellitus with hyperglycemia, with long-term current use of insulin ([facility])- Primary Encounter for dietary consultation Vitamin D deficiency Primary hypertension ([facility]) Unspecified essential hypertension Insulin long-term use ([facility]) Encounter for long-term (current) use of insulin Hyperlipemia, mixed ([facility]) Mixed hyperlipidemia Microalbuminuria Proteinuria Class 3 severe obesity due to excess calories with serious comorbidity and body mass index (BMI) of50.0 to 59.9 in adult ([facility]) documented in this encounter [facility]* Diagnosis Hyperlipidemia, unspecified ([facility]) Bilateral lower extremity edema documented in this encounter [facility]* Diagnosis Vitamin D deficiency, unspecified documented in this encounter [facility]* Diagnosis Obstructive sleep apnea- Primary Obstructive sleep apnea (adult) (pediatric) Pulmonary emphysema, unspecified emphysema type ([facility]) Primary hypertension ([facility]) Unspecified essential hypertension Type 2 diabetes mellitus with complication, with long-term current use of insulin ([facility]) Anxiety and depression ([facility]) Bilateral lower extremity edema Pulmonary emphysema, unspecified emphysema type ([facility])- Primary Primary hypertension ([facility]) Unspecified essential hypertension Class 3 severe obesity with serious comorbidity and body mass index (BMI) of 50.0 to 59.9 in adult,unspecified obesity type ([facility]) Obstructive sleep apnea Obstructive sleep apnea (adult) (pediatric) Pulmonary hypertension ([facility]) Other chronic pulmonary heart diseases Tobacco user Tobacco use disorder Cardiomegaly Primary hypertension ([facility])- Primary Unspecified essential hypertension Gastroesophageal reflux disease, unspecified whether esophagitis present Type 2 diabetes mellitus with complication, with long-term current use of insulin ([facility]) Mixed hyperlipidemia ([facility] [address]/[facility]) Mixed hyperlipidemia Tobacco user Tobacco use disorder Encounter for screening mammogram for malignant neoplasm of breast Chronic obstructive pulmonary disease, unspecified ([facility] [address]) Other specified chronic obstructive pulmonary disease ([facility] [address]) [facility]xiety and depression ([facility] [address]/[facility]) Edema, unspecified Edema Hyperlipidemia, unspecified ([facility] [address]) Diabetic polyneuropathy associated with type 2 [...] with long-term current use of insulin (CMS/[facility]) Class 3 severe obesity with serious [...] unspecified (CMS/HCC) Pulmonary emphysema, unspecified emphysema type ([facility] [address]) Bilateral lower extremity edema Tobacco user Tobacco use disorder Hyperpigmentation of skin Other dyschromia Bilateral lower extremity edema documented in this encounter [facility] HealthcareEvaluation note* Diagnosis Obstructive sleep apnea- Primary Obstructive sleep apnea (adult) (pediatric) Pulmonary emphysema, unspecified emphysema type ([facility] [address]/HCC) Primary hypertension ([facility] [address]) Unspecified essential hypertension Type 2 diabetes mellitus with complication, with long-term current use of insulin ([facility] [address]) Anxiety and depression ([facility] [address]) Bilateral lower extremity edema Pulmonary emphysema, unspecified emphysema type (CMS/HCC)- Primary Primary hypertension ([facility] [address]) Unspecified essential hypertension Class 3 severe obesity with serious comorbidity and body mass index (BMI) of 50.0 to 59.9 in adult,unspecified obesity type ([facility] [address]) Obstructive sleep apnea Obstructive sleep apnea (adult) (pediatric) Pulmonary hypertension ([facility] [address]) Other chronic pulmonary heart diseases Tobacco user Tobacco use disorder Cardiomegaly Primary hypertension ([facility] [address])- Primary Unspecified essential hypertension Gastroesophageal reflux disease, unspecified whether esophagitis present Type 2 diabetes mellitus with complication, with long-term current use of insulin ([facility] [address]) Mixed hyperlipidemia ([facility] [address]) Mixed hyperlipidemia Tobacco user Tobacco use disorder Encounter for screening mammogram for malignant neoplasm of breast Chronic obstructive pulmonary disease, unspecified ([facility] [address] Other specified chronic obstructive pulmonary disease ([facility] [address]) Anxiety and depression ([facility] [address]) Edema, unspecified Edema Hyperlipidemia, unspecified ([facility] [address]) Diabetic polyneuropathy associated with type 2 diabetes mellitus ([facility] [address]) Gout, unspecified cause, unspecified chronicity, unspecified site Non-seasonal allergic rhinitis, unspecified trigger Bilateral lower extremity edema COPD exacerbation ([facility] [address]) Obstructive chronic bronchitis with exacerbation Pulmonary emphysema, unspecified emphysema type ([facility] [address]) Venous insufficiency Unspecified venous (peripheral) insufficiency Candidiasis of breast COPD exacerbation ([facility] [address])- Primary Obstructive chronic bronchitis with exacerbation Pulmonary hypertension ([facility] [address]) Other chronic pulmonary heart diseases Class 3 severe obesity with serious comorbidity and body mass index (BMI) of 50.0 to 59.9 in adult,unspecified obesity type ([facility] [address]) Encounter for subsequent annual wellness visit (AWV) in Medicare patient- Primary Type 2 diabetes mellitus with unspecified complications ([facility] [address]) Pulmonary emphysema, unspecified emphysema type (CMS/HCC) Moderate persistent asthma without complication (CMS/HCC) Primary hypertension (CMS/[facility]) Unspecified essential hypertension Type 2 diabetes mellitus with complication, with long-term current use of insulin ([facility] [address]) Class 3 severe obesity with serious comorbidity and body mass index (BMI) of 50.0 to 59.9 in adult,unspecified obesity type (CMS/[facility]) Tobacco user Tobacco use disorder Other headache syndrome Malignant neoplasm of cervix uteri, unspecified (CMS/HCC) Other specified disorders of adrenal gland (CMS/[facility]) Major depressive disorder, single episode, mild (HCC) ([facility] [address]) Major depressive disorder, single episode, mild Non-pressure chronic ulcer of other part of left lower leg with fat layer exposed (CMS/[facility]) Chronic respiratory failure, unspecified whether with hypoxia or hypercapnia (CMS/[facility]) Disorder of adrenal gland, unspecified (CMS/[facility]) Non-pressure chronic ulcer of other part of right lower leg limited to breakdown of skin (CMS/[facility]) Non-recurrent acute suppurative otitis media of left ear without spontaneous rupture of tympanic membrane Primary hypertension ([facility] [address])- Primary Unspecified essential hypertension Insomnia Insomnia, unspecified Type 2 diabetes mellitus with complication, with long-term current use of insulin (CMS/[facility]) Non-seasonal allergic rhinitis, unspecified trigger Type 2 diabetes mellitus with unspecified complications ([facility] [address]) Anxiety and depression ([facility] [address]) Gastro-esophageal reflux disease without esophagitis Edema, unspecified Edema Diabetic polyneuropathy associated with type 2 diabetes mellitus ([facility] [address]) Chronic obstructive pulmonary disease, unspecified (CMS/[facility]) Pulmonary emphysema, unspecified emphysema type (CMS/HCC) Bilateral lower extremity edema Tobacco user Tobacco use disorder Hyperpigmentation of skin Other dyschromia Primary hypertension (CMS/HCC)- Primary Unspecified essential hypertension Diabetic polyneuropathy associated with type 2 diabetes mellitus (CMS/HCC) Pulmonary emphysema, unspecified emphysema type (CMS/HCC) Critical limb ischemia of right lower extremity (CMS/[facility]) PAD (peripheral artery disease) ([facility] [address]) Unspecified peripheral vascular disease Gastroesophageal reflux disease, unspecified whether esophagitis present Bilateral lower extremity edema Venous ulcer of right leg (CMS/[facility]) Type 2 diabetes mellitus with complication, with long-term current use of insulin (CMS/[facility]) Tobacco user Tobacco use disorder Encounter for smoking cessation counseling Kidney stone Calculus of kidney Adrenal mass 1 cm to 4 cm in diameter (CMS/HCC) Radiculopathy, lumbar region Thoracic or lumbosacral neuritis or radiculitis, unspecified Non-seasonal allergic rhinitis, unspecified trigger Type 2 diabetes mellitus with unspecified complications (CMS/HCC) documented in this encounter [facility] HealthcareEvaluation note* Diagnosis Obstructive sleep apnea- Primary Obstructive sleep apnea (adult) (pediatric) Pulmonary emphysema, unspecified emphysema type (CMS/HCC) Primary hypertension (CMS/HCC) Unspecified essential hypertension Type 2 diabetes mellitus with complication, with long-term current use of insulin (CMS/HCC) Anxiety and depression (CMS/HCC) Bilateral lower extremity edema Pulmonary emphysema, unspecified emphysema type (CMS/HCC)- Primary Primary hypertension (CMS/[facility]) Unspecified essential hypertension Class 3 severe [...] current use of insulin (CMS/HCC) Mixed hyperlipidemia (CMS/[facility]) Mixed hyperlipidemia Tobacco user Tobacco use disorder Encounter for screening mammogram for malignant neoplasm of breast Chronic obstructive pulmonary disease, unspecified (CMS/[facility]) Other specified chronic obstructive pulmonary disease (CMS/HCC) Anxiety and depression (CMS/HCC) Edema, unspecified Edema Hyperlipidemia, unspecified (CMS/[facility]) Diabetic polyneuropathy associated with type 2 diabetes mellitus (CMS/[facility]) Gout, unspecified cause, unspecified chronicity, unspecified [...] 50.0 to 59.9 in adult,unspecified obesity type (CMS/[facility]) Encounter for subsequent annual wellness visit (AWV) in Medicare patient- Primary Type 2 diabetes mellitus with unspecified complications (CMS/HCC) Pulmonary emphysema, unspecified emphysema type (CMS/HCC) Moderate persistent asthma without complication (CMS/HCC) Primary hypertension (CMS/HCC) Unspecified essential hypertension Type 2 diabetes mellitus with complication, with long-term current use of insulin (CMS/[facility]) Class 3 severe obesity with serious comorbidity and body mass index (BMI) of 50.0 to 59.9 in adult,unspecified obesity type (CMS/HCC) Tobacco user Tobacco use disorder Other headache syndrome Malignant neoplasm of cervix uteri, unspecified (CMS/HCC) Other specified disorders of adrenal gland (CMS/HCC) Major depressive disorder, single episode, mild (HCC) (CMS/[facility]) Major depressive disorder, single episode, mild Non-pressure chronic ulcer of other part of left lower leg with fat layer exposed (CMS/[facility]) Chronic respiratory failure, unspecified whether with hypoxia or hypercapnia (CMS/[facility]) Disorder of adrenal gland, unspecified (CMS/[facility]) Non-pressure chronic ulcer of other part of right lower leg limited to breakdown of skin (CMS/[facility]) Non-recurrent acute suppurative otitis media of left ear without spontaneous rupture of tympanic membrane Primary hypertension ([facility]/HCC)- Primary Unspecified essential hypertension Insomnia Insomnia, unspecified Type 2 diabetes mellitus with complication, with long-term current use of insulin (CMS/[facility]) Non-seasonal allergic rhinitis, unspecified trigger Type 2 diabetes mellitus with unspecified complications (CMS/[facility]) Anxiety and depression (CMS/[facility]) Gastro-esophageal reflux disease without esophagitis Edema, unspecified Edema Diabetic polyneuropathy associated with type 2 diabetes mellitus ([facility]) Chronic obstructive pulmonary disease, unspecified (CMS/HCC) Pulmonary emphysema, unspecified emphysema type (CMS/HCC) Bilateral lower extremity edema Tobacco user Tobacco use disorder Hyperpigmentation of skin Other dyschromia Primary hypertension (CMS/HCC)- Primary Unspecified essential hypertension Diabetic polyneuropathy associated with type 2 diabetes mellitus (CMS/HCC) Pulmonary emphysema, unspecified emphysema type (CMS/HCC) Critical limb ischemia of right lower extremity (CMS/HCC) PAD (peripheral artery disease) ([facility] [address]) Unspecified peripheral vascular disease Gastroesophageal reflux disease, unspecified whether esophagitis present Bilateral lower extremity edema Venous ulcer of right leg (CMS/[facility]) Type 2 diabetes mellitus with complication, with long-term current use of insulin (CMS/[facility]) Tobacco user Tobacco use disorder Encounter for smoking cessation counseling Kidney stone Calculus of kidney Adrenal mass 1 cm to 4 cm in diameter ([facility] [address]) Radiculopathy, lumbar region Thoracic or lumbosacral neuritis or radiculitis, unspecified Non-seasonal allergic rhinitis, unspecified trigger Type 2 diabetes mellitus with unspecified complications ([facility] [address] Anxiety and depression ([facility] [facility])- Primary Morbid (severe) obesity due to excess calories ([facility] [facility]) Body mass index (BMI) 50.0-59.9, adult ([facility] [address]) Malignant neoplasm of cervix uteri, unspecified ([facility] [address]) Diabetic polyneuropathy associated with type 2 diabetes mellitus ([facility] [address]) Chronic diastolic heart failure ([facility] [address]) Chronic diastolic heart failure Primary hypertension ([facility] [address]) Unspecified essential hypertension Idiopathic chronic venous hypertension of both lower extremities with ulcer ([facility] [address]) Gastroesophageal reflux disease, unspecified whether esophagitis present Bilateral lower extremity edema Type 2 diabetes mellitus with complication, with long-term current use of insulin ([facility]) Tobacco user Tobacco use disorder Mixed hyperlipidemia ([facility] [address]) Mixed hyperlipidemia Gout, unspecified cause, unspecified chronicity, unspecified site Vitamin deficiency Unspecified vitamin deficiency Gastro-esophageal reflux disease without esophagitis Edema, unspecified Edema Hyperlipidemia, unspecified ([facility] [facility] Encounter for smoking cessation counseling Venous ulcer of right leg ([facility]) Antibiotic-induced yeast infection documented in this encounter [facility] HealthcareEvaluation note* Diagnosis Obstructive sleep apnea- Primary Obstructive sleep apnea (adult) (pediatric) Pulmonary emphysema, unspecified emphysema type ([facility] [facility]) Primary hypertension ([facility] [facility]) Unspecified essential hypertension Type 2 diabetes mellitus with complication, with long-term current use of insulin ([facility] [address] [facility] Anxiety and depression ([facility] [address]) Bilateral lower extremity edema Pulmonary emphysema, unspecified emphysema type ([facility])- Primary Primary hypertension ([facility] [facility]) Unspecified essential hypertension Class 3 severe obesity with serious comorbidity and body mass index (BMI) of 50.0 to 59.9 in adult,unspecified obesity type Obstructive sleep apnea Obstructive sleep apnea (adult) (pediatric) Pulmonary hypertension ([facility]) Other chronic pulmonary heart diseases Tobacco user Tobacco use disorder Cardiomegaly Primary hypertension ([facility])- Primary Unspecified essential hypertension Gastroesophageal reflux disease, unspecified whether esophagitis present Type 2 diabetes mellitus with complication, with long-term current use of insulin ([facility]) Mixed hyperlipidemia (CMS/[facility]) Mixed hyperlipidemia Tobacco user Tobacco use disorder Encounter for screening mammogram for malignant neoplasm of breast Chronic obstructive pulmonary disease, unspecified Other specified chronic obstructive pulmonary disease Anxiety and depression (CMS/[facility]) Edema, unspecified Edema Hyperlipidemia, unspecified (CMS/[facility]) Diabetic polyneuropathy associated with type 2 diabetes mellitus (CMS/[facility]) Gout, unspecified cause, unspecified chronicity, unspecified site Non-seasonal allergic rhinitis, unspecified trigger Bilateral lower extremity edema COPD exacerbation (CMS/[facility]) Obstructive chronic bronchitis with exacerbation Pulmonary emphysema, unspecified emphysema type (CMS/[facility]) Venous insufficiency Unspecified venous (peripheral) insufficiency Candidiasis of breast COPD exacerbation (CMS/[facility])- Primary Obstructive chronic bronchitis with exacerbation Pulmonary hypertension (CMS/[facility]) Other chronic pulmonary heart diseases Class 3 severe obesity with serious comorbidity and body mass index (BMI) of 50.0 to 59.9 in adult,unspecified obesity type Encounter for subsequent annual wellness visit (AWV) in Medicare patient- Primary Type 2 diabetes mellitus with unspecified complications Pulmonary emphysema, unspecified emphysema type ([facility] Moderate persistent asthma without complication ([facility] [facility]) Primary hypertension ([facility] [facility]) Unspecified essential hypertension Type 2 diabetes mellitus with complication, with long-term current use of insulin ([facility]) Class 3 severe obesity with serious comorbidity and body mass index (BMI) of 50.0 to 59.9 in adult,unspecified obesity type Tobacco user Tobacco use disorder Other headache syndrome Malignant neoplasm of cervix uteri, unspecified Other specified disorders of adrenal gland Major depressive disorder, single episode, mild (HCC) ([facility] [facility]) Major depressive disorder, single episode, mild Non-pressure chronic ulcer of other part of left lower leg with fat layer exposed Chronic respiratory failure, unspecified whether with hypoxia or hypercapnia Disorder of adrenal gland, unspecified Non-pressure chronic ulcer of other part of right lower leg limited to breakdown of skin (CMS/[facility]) Non-recurrent acute suppurative otitis media of left ear without spontaneous rupture of tympanic membrane Primary hypertension (CMS/[facility])- Primary Unspecified essential hypertension Insomnia Insomnia, unspecified Type 2 diabetes mellitus with complication, with long-term current use of insulin (CMS/[facility]) Non-seasonal allergic rhinitis, unspecified trigger Type 2 diabetes mellitus with unspecified complications Anxiety and depression ([facility] [facility]) Gastro-esophageal reflux disease without esophagitis Edema, unspecified Edema Diabetic polyneuropathy associated with type 2 diabetes mellitus ([facility] [facility]) Chronic obstructive pulmonary disease, unspecified Pulmonary emphysema, unspecified emphysema type ([facility] [facility]) Bilateral lower extremity edema Tobacco user Tobacco use disorder Hyperpigmentation of skin Other dyschromia Primary hypertension ([facility] [facility])- Primary Unspecified essential hypertension Diabetic polyneuropathy associated with type 2 diabetes mellitus ([facility] [facility]) Pulmonary emphysema, unspecified emphysema type ([facility] [facility]) Critical limb ischemia of right lower extremity ([facility] [facility] PAD (peripheral artery disease) ([facility] [facility]) Unspecified peripheral vascular disease Gastroesophageal reflux disease, unspecified whether esophagitis present Bilateral lower extremity edema Venous ulcer of right leg ([facility] [facility]) Type 2 diabetes mellitus with complication, with long-term current use of insulin ([facility] [facility]) Tobacco user Tobacco use disorder Encounter for smoking cessation counseling Kidney stone Calculus of kidney Adrenal mass 1 cm to 4 cm in diameter ([facility] [facility]) Radiculopathy, lumbar region Thoracic or lumbosacral neuritis or radiculitis, unspecified Non-seasonal allergic rhinitis, unspecified trigger Type 2 diabetes mellitus with unspecified complications Anxiety and depression ([facility])- Primary Morbid (severe) obesity due to excess calories ([facility]) Body mass index (BMI) 50.0-59.9, adult ([facility]) Malignant neoplasm of cervix uteri, unspecified Diabetic polyneuropathy associated with type 2 diabetes mellitus ([facility]) Chronic diastolic heart failure ([facility]) Chronic diastolic heart failure Primary hypertension ([facility]) Unspecified essential hypertension 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 Gastroesophageal reflux disease, unspecified whether esophagitis present Bilateral lower extremity edema Type 2 diabetes mellitus with complication, with long-term current use of insulin ([facility]) Tobacco user Tobacco use disorder Mixed hyperlipidemia ([facility]) Mixed hyperlipidemia Gout, unspecified cause, unspecified chronicity, unspecified site Vitamin deficiency Unspecified vitamin deficiency Gastro-esophageal reflux disease without esophagitis Edema, unspecified Edema Hyperlipidemia, unspecified ([facility]) Encounter for smoking cessation counseling Venous ulcer of right leg ([facility]) Antibiotic-induced yeast infection Type 2 diabetes mellitus with hyperglycemia, with long-term current use of insulin ([facility])- Primary Encounter for dietary consultation Vitamin D deficiency Primary hypertension ([facility]) Unspecified essential hypertension Insulin long-term use ([facility]) Encounter for long-term (current) use of insulin Hyperlipemia, mixed ([facility]) Mixed hyperlipidemia Microalbuminuria Proteinuria Class 3 severe obesity due to excess calories with serious comorbidity and body mass index (BMI) of50.0 to 59.9 in adult documented in this encounter [facility] HealthcareEvaluation note* Diagnosis Obstructive sleep apnea- Primary Obstructive sleep apnea (adult) (pediatric) Pulmonary emphysema, unspecified emphysema type ([facility]) Primary hypertension ([facility]) Unspecified essential hypertension Type 2 diabetes mellitus with complication, with long-term current use of insulin ([facility] Anxiety and depression ([facility]) Bilateral lower extremity edema Pulmonary emphysema, unspecified emphysema type ([facility])- Primary Primary hypertension ([facility]) Unspecified essential hypertension Class 3 severe obesity with serious comorbidity and body mass index (BMI) of 50.0 to 59.9 in adult,unspecified obesity type Obstructive sleep apnea Obstructive sleep apnea (adult) (pediatric) Pulmonary hypertension ([facility]) Other chronic pulmonary heart diseases Tobacco user Tobacco use disorder Cardiomegaly Primary hypertension ([facility])- Primary Unspecified essential hypertension Gastroesophageal reflux disease, unspecified whether esophagitis present Type 2 diabetes mellitus with complication, with long-term current use of insulin ([facility]) Mixed hyperlipidemia ([facility]) Mixed hyperlipidemia Tobacco user Tobacco use disorder Encounter for screening mammogram for malignant neoplasm of breast Chronic obstructive pulmonary disease, unspecified Other specified chronic obstructive pulmonary disease Anxiety and depression ([facility]) Edema, unspecified Edema Hyperlipidemia, unspecified ([facility]) Diabetic polyneuropathy associated with type 2 diabetes mellitus ([facility]) Gout, unspecified cause, unspecified chronicity, unspecified site Non-seasonal allergic rhinitis, unspecified trigger Bilateral lower extremity edema COPD exacerbation ([facility]) Obstructive chronic bronchitis with exacerbation Pulmonary emphysema, unspecified emphysema type ([facility]) Venous insufficiency Unspecified venous (peripheral) insufficiency Candidiasis of breast COPD exacerbation ([facility])- Primary Obstructive chronic bronchitis with exacerbation Pulmonary hypertension ([facility]) Other chronic pulmonary heart diseases Class 3 severe obesity with serious comorbidity and body mass index (BMI) of 50.0 to 59.9 in adult,unspecified obesity type Encounter for subsequent annual wellness visit (AWV) in Medicare patient- Primary Type 2 diabetes mellitus with unspecified complications Pulmonary emphysema, unspecified emphysema type ([facility]) Moderate persistent asthma without complication ([facility] Primary hypertension ([facility]) Unspecified essential hypertension Type 2 diabetes mellitus with complication, with long-term current use of insulin ([facility]) Class 3 severe obesity with serious comorbidity and body mass index (BMI) of 50.0 to 59.9 in adult,unspecified obesity type Tobacco user Tobacco use disorder Other headache syndrome Malignant neoplasm of cervix uteri, unspecified Other specified disorders of adrenal gland Major depressive disorder, single episode, mild (HCC) ([facility]) Major depressive disorder, single episode, mild Non-pressure chronic ulcer of other part of left lower leg with fat layer exposed Chronic respiratory failure, unspecified whether with hypoxia or hypercapnia Disorder of adrenal gland, unspecified Non-pressure chronic ulcer of other part of right lower leg limited to breakdown of skin ([facility]) Non-recurrent acute suppurative otitis media of left ear without spontaneous rupture of tympanic membrane Primary hypertension ([facility])- Primary Unspecified essential hypertension Insomnia Insomnia, unspecified Type 2 diabetes mellitus with complication, with long-term current use of insulin ([facility]) Non-seasonal allergic rhinitis, unspecified trigger Type 2 diabetes mellitus with unspecified complications Anxiety and depression ([facility]) Gastro-esophageal reflux disease without esophagitis Edema, unspecified Edema Diabetic polyneuropathy associated with type 2 diabetes mellitus ([facility]) Chronic obstructive pulmonary disease, unspecified Pulmonary emphysema, unspecified emphysema type ([facility]) Bilateral lower extremity edema Tobacco user Tobacco use disorder Hyperpigmentation of skin Other dyschromia Primary hypertension ([facility])- Primary Unspecified essential hypertension Diabetic polyneuropathy associated with type 2 diabetes mellitus ([facility]) Pulmonary emphysema, unspecified emphysema type ([facility] Critical limb ischemia of right lower extremity ([facility] PAD (peripheral artery disease) ([facility]) Unspecified peripheral vascular disease Gastroesophageal reflux disease, unspecified whether esophagitis present Bilateral lower extremity edema Venous ulcer of right leg ([facility]) Type 2 diabetes mellitus with complication, with long-term current use of insulin ([facility]) Tobacco user Tobacco use disorder Encounter for smoking cessation counseling Kidney stone Calculus of kidney Adrenal mass 1 cm to 4 cm in diameter ([facility]) Radiculopathy, lumbar region Thoracic or lumbosacral neuritis or radiculitis, unspecified Non-seasonal allergic rhinitis, unspecified trigger Type 2 diabetes mellitus with unspecified complications Anxiety and depression ([facility])- Primary Morbid (severe) obesity due to excess calories ([facility]) Body mass index (BMI) 50.0-59.9, adult ([facility]) Malignant neoplasm of cervix uteri, unspecified Diabetic polyneuropathy associated with type 2 diabetes mellitus ([facility]) Chronic diastolic heart failure ([facility]) Chronic diastolic heart failure Primary hypertension ([facility]) Unspecified essential hypertension 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 Gastroesophageal reflux disease, unspecified whether esophagitis present Bilateral lower extremity edema Type 2 diabetes mellitus with complication, with long-term current use of insulin ([facility]) Tobacco user Tobacco use disorder Mixed hyperlipidemia ([facility]) Mixed hyperlipidemia Gout, unspecified cause, unspecified chronicity, unspecified site Vitamin deficiency Unspecified vitamin deficiency Gastro-esophageal reflux disease without esophagitis Edema, unspecified Edema Hyperlipidemia, unspecified ([facility]) Encounter for smoking cessation counseling Venous ulcer of right leg ([facility]) Antibiotic-induced yeast infection Chronic obstructive pulmonary disease, unspecified documented in this encounter [facility] HealthcareEvaluation note* Diagnosis Obstructive sleep apnea- Primary Obstructive sleep apnea (adult) (pediatric) Pulmonary emphysema, unspecified emphysema type ([facility]) Primary hypertension ([facility]) Unspecified essential hypertension Type 2 diabetes mellitus with complication, with long-term current use of insulin ([facility] Anxiety and depression ([facility]) Bilateral lower extremity edema Pulmonary emphysema, unspecified emphysema type ([facility])- Primary Primary hypertension ([facility]) Unspecified essential hypertension Class 3 severe obesity with serious comorbidity and body mass index (BMI) of 50.0 to 59.9 in adult,unspecified obesity type Obstructive sleep apnea Obstructive sleep apnea (adult) (pediatric) Pulmonary hypertension ([facility]) Other chronic pulmonary heart diseases Tobacco user Tobacco use disorder Cardiomegaly Primary hypertension ([facility])- Primary Unspecified essential hypertension Gastroesophageal reflux disease, unspecified whether esophagitis present Type 2 diabetes mellitus with complication, with long-term current use of insulin ([facility]) Mixed hyperlipidemia ([facility]) Mixed hyperlipidemia Tobacco user Tobacco use disorder Encounter for screening mammogram for malignant neoplasm of breast Chronic obstructive pulmonary disease, unspecified Other specified chronic obstructive pulmonary disease Anxiety and depression ([facility]) Edema, unspecified Edema Hyperlipidemia, unspecified ([facility]) Diabetic polyneuropathy associated with type 2 diabetes mellitus ([facility]) Gout, unspecified cause, unspecified chronicity, unspecified site Non-seasonal allergic rhinitis, unspecified trigger Bilateral lower extremity edema COPD exacerbation ([facility]) Obstructive chronic bronchitis with exacerbation Pulmonary emphysema, unspecified emphysema type ([facility]) Venous insufficiency Unspecified venous (peripheral) insufficiency Candidiasis of breast COPD exacerbation ([facility])- Primary Obstructive chronic bronchitis with exacerbation Pulmonary hypertension ([facility]) Other chronic pulmonary heart diseases Class 3 severe obesity with serious comorbidity and body mass index (BMI) of 50.0 to 59.9 in adult,unspecified obesity type Encounter for subsequent annual wellness visit (AWV) in Medicare patient- Primary Type 2 diabetes mellitus with unspecified complications Pulmonary emphysema, unspecified emphysema type ([facility] Moderate persistent asthma without complication ([facility] Primary hypertension ([facility]) Unspecified essential hypertension Type 2 diabetes mellitus with complication, with long-term current use of insulin ([facility]) Class 3 severe obesity with serious comorbidity and body mass index (BMI) of 50.0 to 59.9 in adult,unspecified obesity type Tobacco user Tobacco use disorder Other headache syndrome Malignant neoplasm of cervix uteri, unspecified Other specified disorders of adrenal gland Major depressive disorder, single episode, mild (HCC) ([facility]) Major depressive disorder, single episode, mild Non-pressure chronic ulcer of other part of left lower leg with fat layer exposed Chronic respiratory failure, unspecified whether with hypoxia or hypercapnia Disorder of adrenal gland, unspecified Non-pressure chronic ulcer of other part of right lower leg limited to breakdown of skin ([facility]) Non-recurrent acute suppurative otitis media of left ear without spontaneous rupture of tympanic membrane Primary hypertension ([facility])- Primary Unspecified essential hypertension Insomnia Insomnia, unspecified Type 2 diabetes mellitus with complication, with long-term current use of insulin ([facility]) Non-seasonal allergic rhinitis, unspecified trigger Type 2 diabetes mellitus with unspecified complications Anxiety and depression ([facility]) Gastro-esophageal reflux disease without esophagitis Edema, unspecified Edema Diabetic polyneuropathy associated with type 2 diabetes mellitus ([facility]) Chronic obstructive pulmonary disease, unspecified Pulmonary emphysema, unspecified emphysema type ([facility]) Bilateral lower extremity edema Tobacco user Tobacco use disorder Hyperpigmentation of skin Other dyschromia Primary hypertension ([facility])- Primary Unspecified essential hypertension Diabetic polyneuropathy associated with type 2 diabetes mellitus ([facility]) Pulmonary emphysema, unspecified emphysema type ([facility] Critical limb ischemia of right lower extremity ([facility] PAD (peripheral artery disease) ([facility]) Unspecified peripheral vascular disease Gastroesophageal reflux disease, unspecified whether esophagitis present Bilateral lower extremity edema Venous ulcer of right leg ([facility]) Type 2 diabetes mellitus with complication, with long-term current use of insulin ([facility]) Tobacco user Tobacco use disorder Encounter for smoking cessation counseling Kidney stone Calculus of kidney Adrenal mass 1 cm to 4 cm in diameter ([facility]) Radiculopathy, lumbar region Thoracic or lumbosacral neuritis or radiculitis, unspecified Non-seasonal allergic rhinitis, unspecified trigger Type 2 diabetes mellitus with unspecified complications Anxiety and depression ([facility])- Primary Morbid (severe) obesity due to excess calories ([facility]) Body mass index (BMI) 50.0-59.9, adult ([facility]) Malignant neoplasm of cervix uteri, unspecified Diabetic polyneuropathy associated with type 2 diabetes mellitus ([facility] Chronic diastolic heart failure ([facility]) Chronic diastolic heart failure Primary hypertension ([facility]) Unspecified essential hypertension 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 Gastroesophageal reflux disease, unspecified whether esophagitis present Bilateral lower extremity edema Type 2 diabetes mellitus with complication, with long-term current use of insulin ([facility] Tobacco user Tobacco use disorder Mixed hyperlipidemia ([facility]) Mixed hyperlipidemia Gout, unspecified cause, unspecified chronicity, unspecified site Vitamin deficiency Unspecified vitamin deficiency Gastro-esophageal reflux disease without esophagitis Edema, unspecified Edema Hyperlipidemia, unspecified ([facility]) Encounter for smoking cessation counseling Venous ulcer of right leg ([facility]) Antibiotic-induced yeast infection Primary hypertension ([facility])- Primary Unspecified essential hypertension Diabetic polyneuropathy associated with type 2 diabetes mellitus ([facility]) Chronic diastolic heart failure ([facility]) Chronic diastolic heart failure Bilateral lower extremity edema Morbid (severe) obesity due to excess calories ([facility]) Type 2 diabetes mellitus with complication, with long-term current use of insulin ([facility]) Anxiety and depression ([facility]) Cigarette nicotine dependence without complication Encounter for screening mammogram for malignant neoplasm of breast Insomnia Insomnia, unspecified Non-seasonal allergic rhinitis, unspecified trigger Type 2 diabetes mellitus with unspecified complications Vitamin D deficiency, unspecified Gastro-esophageal reflux disease without esophagitis PAD (peripheral artery disease) ([facility]) Unspecified peripheral vascular disease Gastroesophageal reflux disease, unspecified whether esophagitis present Venous ulcer of right leg ([facility]) documented in this encounter [facility] HealthcareEvaluation note* Diagnosis Obstructive sleep apnea- Primary [...] 50.0 to 59.9 in adult,unspecified obesity type ([facility]) Obstructive sleep apnea Obstructive sleep apnea [...] 50.0 to 59.9 in adult,unspecified obesity type ([facility]) Encounter for subsequent annual wellness visit [...] lower leg with fat layer exposed ([facility]) Chronic respiratory failure, unspecified whether with hypoxia or hypercapnia ([facility]) Disorder of adrenal gland, unspecified ([facility]) Non-pressure chronic ulcer of other part of right lower leg limited to breakdown of skin ([facility]) Non-recurrent acute suppurative otitis media of left ear without spontaneous rupture of tympanic membrane Primary hypertension- Primary Unspecified essential hypertension Insomnia Insomnia, unspecified Type 2 diabetes mellitus with complication, with long-term current use of insulin ([facility]) Non-seasonal allergic rhinitis, unspecified trigger Type 2 diabetes mellitus with unspecified complications ([facility]) Anxiety and depression Gastro-esophageal reflux disease without esophagitis Edema, unspecified Edema Diabetic polyneuropathy associated with type 2 diabetes mellitus ([facility]) Chronic obstructive pulmonary disease, unspecified ([facility]) Pulmonary emphysema, unspecified emphysema type ([facility]) Bilateral lower extremity edema Tobacco user Tobacco use disorder Hyperpigmentation of skin Other dyschromia Primary hypertension- Primary Unspecified essential hypertension Diabetic polyneuropathy associated with type 2 diabetes mellitus ([facility]) Pulmonary emphysema, unspecified emphysema type ([facility]) Critical limb ischemia of right lower extremity ([facility]) PAD (peripheral artery disease) Unspecified peripheral vascular disease Gastroesophageal reflux disease, unspecified whether esophagitis present Bilateral lower extremity edema Venous ulcer of right leg ([facility]) Type 2 diabetes mellitus with complication, with long-term current use of insulin ([facility]) Tobacco user Tobacco use disorder Encounter for smoking cessation counseling Kidney stone Calculus of kidney Adrenal mass 1 cm to 4 cm in diameter ([facility]) Radiculopathy, lumbar region Thoracic or lumbosacral neuritis or radiculitis, unspecified Non-seasonal allergic rhinitis, unspecified trigger Type 2 diabetes mellitus with unspecified complications ([facility]) Anxiety and depression- Primary Morbid (severe) obesity due to excess calories ([facility]) Body mass index (BMI) 50.0-59.9, adult ([facility]) Malignant neoplasm of cervix uteri, unspecified ([facility]) Diabetic polyneuropathy associated with type 2 diabetes mellitus ([facility]) Chronic diastolic heart failure (HCC) Chronic [...] to excess calories ([facility]) Type 2 diabetes mellitus with complication, with long-term current use of insulin ([facility]) Anxiety and depression Cigarette nicotine dependence without complication Encounter for screening mammogram for malignant neoplasm of breast Insomnia Insomnia, unspecified Non-seasonal allergic rhinitis, unspecified trigger Type 2 diabetes mellitus with unspecified complications ([facility]) Vitamin D deficiency, unspecified Gastro-esophageal reflux disease without esophagitis PAD (peripheral artery disease) Unspecified peripheral vascular disease Gastroesophageal reflux disease, unspecified whether esophagitis present Venous ulcer of right leg (HCC) Cellulitis of left lower extremity- Primary COPD exacerbation ([facility]) Obstructive chronic bronchitis with exacerbation Primary hypertension Unspecified essential hypertension Pulmonary hypertension (HCC) Other chronic pulmonary heart diseases Morbid (severe) obesity due to excess calories ([facility]) Type 2 diabetes mellitus with complication, with long-term current use of insulin ([facility]) Anxiety and depression Fever, unspecified fever cause Hyperlipidemia, unspecified Tobacco user Tobacco use disorder Encounter for smoking cessation counseling documented in this encounter [facility] HealthcareEvaluation note* Diagnosis Obstructive sleep apnea- Primary Obstructive sleep apnea (adult) (pediatric) Pulmonary emphysema, unspecified emphysema type ([facility]) Primary hypertension ([facility]) Unspecified essential hypertension Type 2 diabetes mellitus with complication, with long-term current use of insulin ([facility]) Anxiety and depression ([facility]) Bilateral lower extremity edema Pulmonary emphysema, unspecified emphysema type ([facility])- Primary Primary hypertension ([facility]) Unspecified essential hypertension Class 3 severe [...] obstructive pulmonary disease Anxiety and depression ([facility]) Edema, unspecified Edema Hyperlipidemia, unspecified (CMS/HCC) Diabetic polyneuropathy associated with type 2 diabetes mellitus ([facility]) Gout, unspecified cause, unspecified chronicity, unspecified site Non-seasonal allergic rhinitis, unspecified trigger Bilateral lower extremity edema COPD exacerbation ([facility]) Obstructive chronic bronchitis with exacerbation Pulmonary emphysema, unspecified emphysema type ([facility]) Venous insufficiency Unspecified venous (peripheral) insufficiency Candidiasis of breast COPD exacerbation ([facility])- Primary Obstructive chronic bronchitis with exacerbation Pulmonary hypertension ([facility]) Other chronic pulmonary heart diseases Class 3 severe obesity with serious comorbidity and body mass index (BMI) of 50.0 to 59.9 in adult,unspecified obesity type Encounter for subsequent annual wellness visit (AWV) in Medicare patient- Primary Type 2 diabetes mellitus with unspecified complications Pulmonary emphysema, unspecified emphysema type ([facility]) Moderate persistent asthma without complication ([facility]) Primary hypertension ([facility]) Unspecified essential hypertension Type 2 diabetes mellitus with complication, with long-term current use of insulin ([facility]) Class 3 severe obesity with serious comorbidity and body mass index (BMI) of 50.0 to 59.9 in adult,unspecified obesity type Tobacco user Tobacco use disorder Other headache syndrome Malignant neoplasm of cervix uteri, unspecified Other specified disorders of adrenal gland Major depressive disorder, single episode, mild (HCC) ([facility]) Major depressive disorder, single episode, mild Non-pressure chronic ulcer of other part of left lower leg with fat layer exposed Chronic respiratory failure, unspecified whether with hypoxia or hypercapnia Disorder of adrenal gland, unspecified Non-pressure chronic ulcer of other part of right lower leg limited to breakdown of skin ([facility]) Non-recurrent acute suppurative otitis media of left ear without spontaneous rupture of tympanic membrane Primary hypertension ([facility])- Primary Unspecified essential hypertension Insomnia Insomnia, unspecified Type 2 diabetes mellitus with complication, with long-term current use of insulin ([facility]) Non-seasonal allergic rhinitis, unspecified trigger Type 2 diabetes mellitus with unspecified complications Anxiety and depression ([facility]) Gastro-esophageal reflux disease without esophagitis Edema, unspecified Edema Diabetic polyneuropathy associated with type 2 diabetes mellitus ([facility]) Chronic obstructive pulmonary disease, unspecified Pulmonary emphysema, unspecified emphysema type ([facility]) Bilateral lower extremity edema Tobacco user Tobacco use disorder Hyperpigmentation of skin Other dyschromia Primary hypertension ([facility])- Primary Unspecified essential hypertension Diabetic polyneuropathy associated with type 2 diabetes mellitus ([facility]) Pulmonary emphysema, unspecified emphysema type ([facility] Critical limb ischemia of right lower extremity ([facility]) PAD (peripheral artery disease) ([facility]) Unspecified peripheral vascular disease Gastroesophageal reflux disease, unspecified whether esophagitis present Bilateral lower extremity edema Venous ulcer of right leg ([facility]) Type 2 diabetes mellitus with complication, with long-term current use of insulin ([facility]) Tobacco user Tobacco use disorder Encounter for smoking cessation counseling Kidney stone Calculus of kidney Adrenal mass 1 cm to 4 cm in diameter ([facility]) Radiculopathy, lumbar region Thoracic or lumbosacral neuritis or radiculitis, unspecified Non-seasonal allergic rhinitis, unspecified trigger Type 2 diabetes mellitus with unspecified complications Anxiety and depression ([facility])- Primary Morbid (severe) obesity due to excess calories ([facility]) Body mass index (BMI) 50.0-59.9, adult ([facility]) Malignant neoplasm of cervix uteri, unspecified Diabetic polyneuropathy associated with type 2 diabetes mellitus ([facility]) Chronic diastolic heart failure ([facility]) Chronic diastolic heart failure Primary hypertension ([facility]) Unspecified essential hypertension Idiopathic chronic 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 Gastroesophageal reflux disease, unspecified whether esophagitis present Bilateral lower extremity edema Type 2 diabetes mellitus with complication, with long-term current use of insulin ([facility]) Tobacco user Tobacco use disorder Mixed hyperlipidemia ([facility]) Mixed hyperlipidemia Gout, unspecified cause, unspecified chronicity, unspecified site Vitamin deficiency Unspecified vitamin deficiency Gastro-esophageal reflux disease without esophagitis Edema, unspecified Edema Hyperlipidemia, unspecified ([facility]) Encounter for smoking cessation counseling Venous ulcer of right leg ([facility]) Antibiotic-induced yeast infection Primary hypertension ([facility])- Primary Unspecified essential hypertension Diabetic polyneuropathy associated with type 2 diabetes mellitus ([facility]) Chronic diastolic heart failure ([facility]) Chronic diastolic heart failure Bilateral lower extremity edema Morbid (severe) obesity due to excess calories ([facility]) Type 2 diabetes mellitus with complication, with long-term current use of insulin ([facility]) Anxiety and depression ([facility]) Cigarette nicotine dependence without complication Encounter for screening mammogram for malignant neoplasm of breast Insomnia Insomnia, unspecified Non-seasonal allergic rhinitis, unspecified trigger Type 2 diabetes mellitus with unspecified complications Vitamin D deficiency, unspecified Gastro-esophageal reflux disease without esophagitis PAD (peripheral artery disease) ([facility]) Unspecified peripheral vascular disease Gastroesophageal reflux disease, unspecified whether esophagitis present Venous ulcer of right leg ([facility]) Cellulitis of left lower extremity- Primary COPD exacerbation ([facility]) Obstructive chronic bronchitis with exacerbation Primary hypertension ([facility]) Unspecified essential hypertension Pulmonary hypertension ([facility]) Other chronic pulmonary heart diseases Morbid (severe) obesity due to excess calories ([facility]) Type 2 diabetes mellitus with complication, with long-term current use of insulin ([facility]) Anxiety and depression ([facility]) Fever, unspecified fever cause documented in this encounter [facility] HealthcareEvaluation note* Diagnosis Obstructive sleep apnea- Primary Obstructive sleep apnea (adult) (pediatric) Pulmonary emphysema, unspecified emphysema type (HCC) Primary hypertension Unspecified essential hypertension Type 2 diabetes mellitus with complication, with long-term current use of insulin ([facility]) Anxiety and depression Bilateral lower extremity edema Pulmonary emphysema, unspecified emphysema type (HCC)- Primary Primary hypertension Unspecified essential hypertension Class 3 severe obesity with serious comorbidity and body mass index (BMI) of 50.0 to 59.9 in adult,unspecified obesity type ([facility]) Obstructive sleep apnea Obstructive sleep apnea (adult) (pediatric) Pulmonary hypertension (HCC) Other chronic pulmonary heart diseases Tobacco user Tobacco use disorder Cardiomegaly Primary hypertension- Primary Unspecified essential hypertension Gastroesophageal reflux disease, unspecified whether esophagitis present Type 2 diabetes mellitus with complication, with long-term current use of insulin ([facility]) Mixed hyperlipidemia Mixed hyperlipidemia Tobacco user [...] with long-term current use of insulin ([facility]) Class 3 severe obesity with serious comorbidity and body mass index (BMI) of 50.0 to 59.9 in adult,unspecified obesity type ([facility]) Tobacco user Tobacco use disorder Other [...] associated with type 2 diabetes mellitus ([facility]) Pulmonary emphysema, unspecified emphysema type ([facility]) Critical limb ischemia of right lower extremity ([facility]) PAD (peripheral artery disease) Unspecified peripheral vascular disease Gastroesophageal reflux disease, unspecified whether esophagitis present Bilateral lower extremity edema Venous ulcer of right leg (HCC) Type 2 diabetes mellitus with complication, with long-term current use of insulin ([facility]) Tobacco user Tobacco use disorder Encounter for smoking cessation counseling Kidney stone Calculus of kidney Adrenal mass 1 cm to 4 cm in diameter ([facility]) Radiculopathy, lumbar region Thoracic or lumbosacral neuritis or radiculitis, unspecified Non-seasonal allergic rhinitis, unspecified trigger Type 2 diabetes mellitus with unspecified complications ([facility]) Anxiety and depression- Primary Morbid (severe) obesity due to excess calories ([facility]) Body mass index (BMI) 50.0-59.9, adult ([facility]) Malignant neoplasm of cervix uteri, unspecified ([facility]) Diabetic polyneuropathy associated with type 2 diabetes mellitus ([facility]) Chronic diastolic heart failure ([facility]) Chronic diastolic heart failure Primary hypertension Unspecified essential hypertension 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 ([facility]) Gastroesophageal reflux disease, unspecified whether esophagitis present Bilateral lower extremity edema Type 2 diabetes mellitus with complication, with long-term current use of insulin ([facility]) Tobacco user Tobacco use disorder Mixed hyperlipidemia Mixed hyperlipidemia Gout, unspecified cause, unspecified chronicity, unspecified site Vitamin deficiency Unspecified vitamin deficiency Gastro-esophageal reflux disease without esophagitis Edema, unspecified Edema Hyperlipidemia, unspecified Encounter for smoking cessation counseling Venous ulcer of right leg ([facility]) Antibiotic-induced yeast infection Primary hypertension- Primary Unspecified essential hypertension Diabetic polyneuropathy associated with type 2 diabetes mellitus (HCC) Chronic diastolic heart failure (HCC) Chronic diastolic heart failure Bilateral lower extremity edema Morbid (severe) obesity due to excess calories ([facility]) Type 2 diabetes mellitus with complication, with long-term current use of insulin ([facility]) Anxiety and depression Cigarette nicotine dependence without complication Encounter for screening mammogram for malignant neoplasm of breast Insomnia Insomnia, unspecified Non-seasonal allergic rhinitis, unspecified trigger Type 2 diabetes mellitus with unspecified complications ([facility]) Vitamin D deficiency, unspecified Gastro-esophageal reflux [...] to excess calories ([facility]) Type 2 diabetes mellitus with complication, [...] to excess calories ([facility]) Type 2 diabetes mellitus with hyperglycemia, with long-term current use of insulin ([facility]) documented in this encounter [facility] HealthcareEvaluation note* Diagnosis Obstructive sleep apnea- Primary [...] 50.0 to 59.9 in adult,unspecified obesity type ([facility]) Obstructive sleep apnea Obstructive sleep apnea [...] associated with type 2 diabetes mellitus ([facility]) Gout, unspecified cause, unspecified chronicity, unspecified [...] complications (HCC) Pulmonary emphysema, unspecified emphysema type ([facility]) Moderate persistent asthma without complication (HCC) Primary hypertension Unspecified essential hypertension Type 2 diabetes mellitus with complication, with long-term current use of insulin ([facility]) Class 3 severe obesity with serious comorbidity and body mass index (BMI) of 50.0 to 59.9 in adult,unspecified obesity type ([facility]) Tobacco user Tobacco use disorder Other headache syndrome Malignant neoplasm of cervix uteri, unspecified (HCC) Other specified disorders of adrenal gland (HCC) Major depressive disorder, single episode, mild Major depressive disorder, single episode, mild Non-pressure chronic ulcer of other part of left lower leg with fat layer exposed ([facility]) Chronic respiratory failure, unspecified whether with [...] mellitus (HCC) Pulmonary emphysema, unspecified emphysema type ([facility]) Critical limb ischemia of right lower extremity ([facility]) PAD (peripheral artery disease) Unspecified peripheral vascular disease Gastroesophageal reflux disease, unspecified whether esophagitis present Bilateral lower extremity edema Venous ulcer of right leg (HCC) Type 2 diabetes mellitus with complication, with long-term current use of insulin ([facility]) Tobacco user Tobacco use disorder Encounter for smoking cessation counseling Kidney stone Calculus of kidney Adrenal mass 1 cm to 4 cm in diameter ([facility]) Radiculopathy, lumbar region Thoracic or lumbosacral neuritis or radiculitis, unspecified Non-seasonal allergic rhinitis, unspecified trigger Type 2 diabetes mellitus with unspecified complications ([facility]) Anxiety and depression- Primary Morbid (severe) obesity due to excess calories ([facility]) Body mass index (BMI) 50.0-59.9, adult ([facility]) Malignant neoplasm of cervix uteri, unspecified ([facility]) Diabetic polyneuropathy associated with type 2 diabetes mellitus ([facility]) Chronic diastolic heart failure ([facility]) Chronic diastolic heart failure Primary hypertension Unspecified essential hypertension Idiopathic chronic 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 ([facility]) Gastroesophageal reflux disease, unspecified whether esophagitis present Bilateral lower extremity edema Type 2 diabetes mellitus with complication, with long-term current use of insulin ([facility]) Tobacco user Tobacco use disorder Mixed hyperlipidemia Mixed hyperlipidemia Gout, unspecified cause, unspecified chronicity, unspecified site Vitamin deficiency Unspecified vitamin deficiency Gastro-esophageal reflux disease without esophagitis Edema, unspecified Edema Hyperlipidemia, unspecified Encounter for smoking cessation counseling Venous ulcer of right leg ([facility]) Antibiotic-induced yeast infection Primary hypertension- Primary Unspecified essential hypertension Diabetic polyneuropathy associated with type 2 diabetes mellitus (HCC) Chronic diastolic heart failure (HCC) Chronic diastolic heart failure Bilateral lower extremity edema Morbid (severe) obesity due to excess calories ([facility]) Type 2 diabetes mellitus with complication, with long-term current use of insulin ([facility]) Anxiety and depression Cigarette nicotine dependence without complication Encounter for screening mammogram for malignant neoplasm of breast Insomnia Insomnia, unspecified Non-seasonal allergic rhinitis, unspecified trigger Type 2 diabetes mellitus with unspecified complications ([facility]) Vitamin D deficiency, unspecified Gastro-esophageal reflux [...] with long-term current use of insulin ([facility]) Anxiety and depression Fever, unspecified fever cause Encounter for subsequent annual wellness visit (AWV) in Medicare patient- Primary Mixed hyperlipidemia Mixed hyperlipidemia Type 2 diabetes mellitus with complication, with long-term current use of insulin ([facility]) Bilateral lower extremity edema Gastro-esophageal reflux disease without esophagitis Chronic diastolic heart failure (HCC) Chronic diastolic heart failure Primary hypertension Unspecified essential hypertension Pulmonary hypertension (HCC) Other chronic pulmonary heart diseases Diabetic polyneuropathy associated with type 2 diabetes mellitus ([facility]) Pulmonary emphysema, unspecified emphysema type ([facility]) Moderate persistent asthma without complication ([facility]) Insomnia Insomnia, unspecified Non-seasonal allergic rhinitis, unspecified trigger Type 2 diabetes mellitus with unspecified complications ([facility]) Anxiety and depression Antibiotic-induced yeast infection Chronic obstructive pulmonary disease, unspecified ([facility]) Hyperlipidemia, unspecified Vaginal yeast infection Candidiasis of vulva and vagina Morbid (severe) obesity due to excess calories ([facility]) Encounter for dietary consultation- Primary Type 2 diabetes mellitus with hyperglycemia, with long-term current use of insulin ([facility]) Vitamin D deficiency Primary hypertension Unspecified essential hypertension Insulin long-term use ([facility]) Encounter for long-term (current) use of insulin Hyperlipemia, mixed Mixed hyperlipidemia Microalbuminuria Proteinuria Class 3 severe obesity due to excess calories with serious comorbidity and body mass index (BMI) of50.0 to 59.9 in adult ([facility]) documented in this encounter [facility] HealthcareEvaluation note* Diagnosis Obstructive sleep apnea- Primary Obstructive sleep apnea (adult) (pediatric) Pulmonary emphysema, unspecified emphysema type ([facility]) Primary hypertension Unspecified essential hypertension Type 2 diabetes mellitus with complication, with long-term current use of insulin ([facility]) Anxiety and depression Bilateral lower extremity [...] complications (HCC) Pulmonary emphysema, unspecified emphysema type ([facility]) Moderate persistent asthma without complication (HCC) Primary hypertension Unspecified essential hypertension Type 2 diabetes mellitus with complication, with long-term current use of insulin ([facility]) Class 3 severe obesity with serious [...] associated with type 2 diabetes mellitus ([facility]) Pulmonary emphysema, unspecified emphysema type ([facility]) Critical limb ischemia of right lower extremity ([facility]) PAD (peripheral artery disease) Unspecified peripheral vascular disease Gastroesophageal reflux disease, unspecified whether esophagitis present Bilateral lower extremity edema Venous ulcer of right leg ([facility]) Type 2 diabetes mellitus with complication, with long-term current use of insulin ([facility]) Tobacco user Tobacco use disorder Encounter for smoking cessation counseling Kidney stone Calculus of kidney Adrenal mass 1 cm to 4 cm in diameter ([facility]) Radiculopathy, lumbar region Thoracic or lumbosacral neuritis or radiculitis, unspecified Non-seasonal allergic rhinitis, unspecified trigger Type 2 diabetes mellitus with unspecified complications ([facility]) Anxiety and depression- Primary Morbid (severe) obesity due to excess calories ([facility]) Body mass index (BMI) 50.0-59.9, adult ([facility]) Malignant neoplasm of cervix uteri, unspecified ([facility]) Diabetic polyneuropathy associated with type 2 diabetes mellitus ([facility]) Chronic diastolic heart failure (HCC) Chronic diastolic heart failure Primary hypertension Unspecified essential hypertension Idiopathic chronic 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 ([facility]) Gastroesophageal reflux disease, unspecified whether esophagitis present Bilateral lower extremity edema Type 2 diabetes mellitus with complication, with long-term current use of insulin ([facility]) Tobacco user Tobacco use disorder Mixed hyperlipidemia Mixed hyperlipidemia Gout, unspecified cause, unspecified chronicity, unspecified site Vitamin deficiency Unspecified vitamin deficiency Gastro-esophageal reflux disease without esophagitis Edema, unspecified Edema Hyperlipidemia, unspecified Encounter for smoking cessation counseling Venous ulcer of right leg ([facility]) Antibiotic-induced yeast infection Primary hypertension- Primary Unspecified essential hypertension Diabetic polyneuropathy associated with type 2 diabetes mellitus (HCC) Chronic diastolic heart failure (HCC) Chronic diastolic heart failure Bilateral lower extremity edema Morbid (severe) obesity due to excess calories ([facility]) Type 2 diabetes mellitus with complication, with long-term current use of insulin ([facility]) Anxiety and depression Cigarette nicotine dependence [...] to excess calories ([facility]) Type 2 diabetes mellitus with complication, with [...] to excess calories ([facility]) Tobacco user Tobacco use disorder Encounter for smoking cessation counseling documented in this encounter [facility] HealthcareEvaluation noteNo assessment information availableDoctors Hospital Work Phone: History general Narrative - Reported* Type Description Date Medical History diabetes mallitus Medical HistoryCOPDMedical HistoryADRENAL MASS 1 CM TO 4 CM IN DIAMETERMedical HistoryARTHRITISMedical HistoryASTHMAMedical HistoryHEADACHEMedical History HYPERTENSIONMedical HistoryKIDNEY STONESMedical HistoryLEFT FLANK PAINMedical HistoryMIXED INCONTINENCEMedical HistoryPROTEINURIAMedical HistorySMOKERSurgical [id number] Historytoe surgerySurgical HistoryLAPAROSCOPIC CHOLECYSTECTOMYHospitalization [id number] HistorySEE ABOVE [facility] Other Hospital course Narrative No data available for this section [facility] progress note No data available for this section [facility] reason for referral (narrative) , Referral to Dr. Cortés Referred by: REGLA PHIPPS, Elbert Joya [facility] reason for referral (narrative)No reason for referral information availableDoctors Hospital Work Phone: Advance Directives No Advanced Directives Records FoundDocuments on File TypeDate RecordedPatient RepresentativeExplanationAdvance Directives and Living WillPower of Sonography Technologist Advance Directive Response Recorded Date/ Time Advance [...] section and content) DATE CREATED AUTHOR 10/30/2019 [facility] DATE CREATED AUTHOR AUTHOR'S ORGANIZ ATION 09/15/2020 [facility] DATE CREATED AUTHOR AUTHOR'S ORGANIZ ATION 12/19/2022 [facility] DATE CREATED AUTHOR AUTHOR'S ORGANIZ ATION 01/30/2025 [facility] DATE CREATED AUTHOR AUTHOR'S ORGANIZ ATION 04/12/2025 [facility] DATE CREATED AUTHOR AUTHOR'S ORGANIZ ATION 04/29/2025 [facility] DATE CREATED AUTHOR AUTHOR'S ORGANIZ ATION 05/21/2025 [facility] Care Team (unrecognized sect ion and content) Team MemberRelationshipSpecialtyStart DateEnd Date Ty Amin MD PCP - GeneralFamily Medicine01/05/23Team MemberRelationshipSpecialtyStart DateEnd Date Ty Amin MD PCP - GeneralFamily Medicine01/05/23Team MemberRelationshipSpecialtyStart DateEnd Date Ty Amin MD [address] [place] [address] PCP - GeneralFamily Medicine09/20/23 Mckayla Blas NP [address] [place] [address] PCP - / Mckayla Blas NP [address] [place] [place] [address] Nurse PractitionerFamily Medicine09/20/23Team MemberRelationshipSpecialtyStart DateEnd Date Ty Amin MD [address] [place] [address] PCP - [facility]09/20/23 Mckayla Blas NP [address] [place] [address] PCP [facility]/ Mckayla Blas NP [address] [place] [address] [facility]09/20/23Team MemberRelationshipSpecialtyStart DateEnd Date Ty Amin MD [address] [place] [address] PCP - [facility]09/20/23 Mckayla Blas NP [address] [place] [address] [place] [address]/ Mckayla Blas NP [address] [place] [address] Nurse Pract[facility]09/20/23Team MemberRelationshipSpecialtyStart DateEnd Date Ty Amin MD [address] [place] [address] PCP - [facility]09/20/23 Mckayla Blas NP [address] [place] [address] PCP - [facility]/ Mckayla Blas NP [address] [place] [address] Nurse Pract[facility]09/20/23Team MemberRelationshipSpecialtyStart DateEnd Date Ty Amin MD [address] [place] [address] PCP - [facility]09/20/23 Mckayla Blas NP [address] [place] [address] PCP [facility] Mckayla Blas NP [address] [place] [address] Nurse PractitionerC[facility]09/20/23Team MemberRelationshipSpecialtyStart DateEnd Date Ty Amin MD [address] [place] [address] [facility] - [facility]/23 Mckayla Blas NP [address] [place] [address] PCP [facility] Mckayla Blas NP [address] [place] [address] [facility] Medicine09/20/23Team MemberRelationshipSpecialtyStart DateEnd Date Ty Amin MD [address] [place] [address] PCP - [facility]09/20/23 Mckayla Blas NP [address] [place] [address] PCP [facility]/ Mckayla Blas NP [address] [place] [address] Nurse Pract[facility]09/20/23Team MemberRelationshipSpecialtyStart DateEnd Date Ty Amin MD [address] [place] [address] PCP - [facility]09/20/23 Mckayla Blas, SILVANO [address] [place] [address] [place] [address]/ Mckayla Blas NP [address] [place] [address] Nurse Pract[facility]09/20/23Team MemberRelationshipSpecialtyStart DateEnd Date Ty Amin MD [address] [place] [address] PCP - Generalmily Medicine09/20/23 Mckayla Blas NP [address] [place] [address] [place] [address]/ Mckayla Blas NP [address] [place] [address] [facility] Medicine09/20/23Team MemberRelationshipSpecialtyStart DateEnd Date Ty Amin MD [address] [place] [address] PCP - [facility]09/20/23 Mckayla Blas NP [address] [place] [address] [place] [address]/ Mckayla Blas NP [address] [place] [address] Nurse Pract[facility]09/20/23Team MemberRelationshipSpecialtyStart DateEnd Date Ty Amin MD [address] [place] [address] PCP - [facility]09/20/23 Mckayla Blas NP [address] [place] [address] [place] [address]/ Mckayla Blas NP [address] [place] [address] Nurse Pract[facility]09/20/23Team MemberRelationshipSpecialtyStart DateEnd Date Ty Amin MD [address] [place] [address] PCP - [facility]09/20/23 Mckyala Blas NP [address] [place] [address] [place] [address] Mckayla Blas NP [address] [place] [address] Nurse Pract[facility]erC[facility]09/20/23Team MemberRelationshipSpecialtyStart DateEnd Date Ty Amin MD [address] [place] [address] PCP - [facility]09/20/23 Mckayla Blas NP [address] [place] [address] [place] [address] Mckayla Blas NP [address] [place] [address] Nurse Pract[facility]09/20/23Team MemberRelationshipSpecialtyStart DateEnd Date Ty Amin MD [address] [place] [address] PCP - [facility]09/20/23 Mckayla Blas NP [address] [place] [address] [place] [address]/ Mckayla Blas NP [address] [place] [address] Nurse PractitionerC[facility]09/20/23Team MemberRelationshipSpecialtyStart DateEnd Date Ty Amin MD [address] [place] [address] PCP - [facility]09/20/23 Mckayla Blas NP [address] [place] [address] [place] [address] Mckayla Blas NP [address] [place] [address] [facility] Medicine09/20/23Team MemberRelationshipSpecialtyStart DateEnd Date Ty Amin MD [address] [place] [address] PCP - [facility]09/20/23 Mckayla Blas NP [address] [place] [address] [facility]/ Mckayla Blas NP [address] [place] [address] Nurse PractitionerC[facility]09/20/23Team MemberRelationshipSpecialtyStart DateEnd Date Ty Amin MD [address] [place] [address] PCP - [facility]09/20/23 Mckayla Blas NP [address] [place] [address] [place] [address]/ Mckayla Blas NP [address] [place] [address] Nurse PractitionerC[facility]09/20/23Team MemberRelationshipSpecialtyStart DateEnd Date Ty Amin MD [address] [place] [address] PCP - [facility]09/20/23 Mckayla Blas NP [address] [place] [address] [place] [address]/ Mckayla Blas NP [address] [place] [address] [facility] Medicine09/20/23Team MemberRelationshipSpecialtyStart DateEnd Date Ty Amin MD [address] [place] [address] PCP - [facility] Medicine09/20/23 Mckayla Blas, SILVANO [address] [place] [address] PCP - [facility]/ Mckayla Blas NP [address] [place] [address] Nurse PractitionerC[facility]09/20/23Te MemberRelationshipSpecialtyStart DateEnd Date Ty Amin MD [address] [place] [address] PCP - [facility]09/20/23 Mckayla Blas NP [address] [place] [address] PCP [facility]/ Mckayla Blas NP [address] [place] [address] Nurse PractitionerC[facility]09/20/23Te MemberRelationshipSpecialtyStart DateEnd Date Ty Amin MD [address] [place] [address] PCP - GeneralFamily Medicine09/20/23 Mckayla Blas NP [address] [place] [address] [facility] Medicine09/20/23Team MemberRelationshipSpecialtyStart DateEnd Date Ty Amin MD [address] [place] [address] PCP - [facility]09/20/23 Mckayla Blas NP [address] [place] [address] [facility] Medicine09/20/23Team MemberRelationshipSpecialtyStart DateEnd Date Ty Amin MD [address] [place] [address] [facility]09/20/23 Mckayla Blas NP [address] [place] [address] [facility] Medicine09/20/23Team MemberRelationshipSpecialtyStart DateEnd Date Ty Amin MD [address] [place] [address] PCP - [facility]09/20/23 Mckayla Blas NP [address] [place] [address] Nurse Pract[facility]erC[facility]09/20/23Team MemberRelationshipSpecialtyStart DateEnd Date Ty Amin MD [address] [place] [address] PCP - [facility]09/20/23 Mckayla Blas NP [address] [place] [address] Nurse Pract[facility]erC[facility]09/20/23 Team Status: Active Member Role Status Dates Mckayla Blas CUPOLA CHARGER-C Primary Care Provider Active Team Status: Active Member Role Status Dates Mckayla Blas , CUPOLA CHARGER-C Primary Care Provider Active Start: March 25, 2025 Price Arora DOAttending ProviderActiveStart: March 25, 2025 Team Status: Active Member Role Status Dates Mckayla Blas CUPOLA CHARGER-C Primary Care Provider Active Start: March 26, 2025 Darrell Wellsending ProviderActiveStart: March 26, 2025 Team Status: Inactive Member Role Status Dates Mckayla Blas CUPOLA CHARGER-C Primary Care Provider Active Start: April 06, 2025 End: April 06, 2025Mckayla Blas CUPOLA CHARGER-CAttending ProviderActiveStart: April 06, 2025 End: April 06, 2025 Team Status: Active Member Role/Relationship Status Dates Mckayla Blas , CUPOLA CHARGER-C Primary Care Provider Active Team Status: Active Member Role/Relationship Status Dates Mckayla Blas , CUPOLA CHARGER-C Primary Care Provider Active Start: March 25, 2025 Price Arora DOAttbrandee ProviderActiveStart: March 25, 2025 Team Status: Active Member Role/Relationship Status Dates Mckayla Blas , CUPOLA CHARGER-C Primary Care Provider Active Start: March 26, 2025 Darrell Wellsending ProviderActiveStart: March 26, 2025 Team Status: Inactive Member Role/Relationship Status Dates Mckayla Blas , CUPOLA CHARGER-C Primary Care Provider Active Start: April 06, 2025 End: April 06, 2025Mckayla Blas NP-CAttending ProviderActiveStart: April 06, 2025 End: April 06, 2025 Team Status: Inactive Member Role/Relationship Status Dates Mckayla Blas NP-C Primary Care Provider Active Start: April 29, 2025 End: April 29, 2025Mckayla Blas NP-Louann ProviderActiveStart: April 29, 2025 End: April 29, 2025Team MemberRelationshipSpecialtyStart DateEnd Date Ty Amin MD PCP - [facility]09/20/23 Mckayla Blas NP [address] [place] [address] PCP - [facility]/ Mckayla Blas NP Nurse [facility]09/20/23Team MemberRelationshipSpecialtyStart DateEnd Date Ty Amin MD [facility] - [facility] Ty Amin MD PCP - [facility]09/20/23 Mckayla Blas NP [address] [place] [address] PCP - [facility]/ Mckayla Blas NP Nurse Pract[facility]erC[facility]09/20/23Team MemberRelationshipSpecialtyStart DateEnd Date Ty Amin MD PCP - [facility]09/20/23 Mckayla Blas NP [address] [place] [address] PCP - [facility]//12/31 Mckayla Blas NP Nurse PractitionerCoffee [facility] Medical Center09/20/23 REASON FOR VISIT (unrecogniz ed section and [...] BE BASED ON THE PRIMARY CLINICAL RECORDS. [employer] provides no warranty or guarantee of the accuracy or completeness of information in this document.
[2025-05-24] MEDS: KETOROLAC TROMETHAMINE 30 MG/ML VIAL IVP (10:02)
[2025-05-24 10:15] LABS: Hematocrit 58.3 % (36.0-48.0); Hemoglobin 18.7 g/dL (12.0-16.0); Immature Granulocytes Abs Auto 0.04 10^3/uL (0.00-0.03); Immature Granulocytes Pct Auto 0.3 % (0.0-0.5); Lymphocytes Absolute Auto 2.7 10^3/uL (1.2-3.8); Mean Corpuscular HGB Conc 32.1 g/dL (29.9-35.2); Mean Corpuscular Hemoglobin 27.5 pg (26.7-34.0); Mean Corpuscular Volume 85.9 fL (81.0-99.0); Platelet Count 115 10^3/uL (150-450); Red Blood Count 6.79 10^6/uL (4.20-5.40); White Blood Count 11.9 10^3/uL (4.0-11.0)
[2025-05-24 10:19] LABS: Alanine Aminotransferase 17 U/L (14-59); Albumin Globulin Ratio 0.7; Albumin Level 3.2 g/dL (3.4-5.0); Alkaline Phosphatase 75 U/L (46-116); Anion Gap 10.0; Aspartate Amino Transferase 12 U/L (15-37); Blood Urea Nitrogen 15.0 mg/dL (7.0-18.0); Calcium 9.3 mg/dL (8.5-10.1); Carbon Dioxide 35.0 mmol/L (21.0-32.0); Chloride 104 mmol/L (98-107); Estimated GFR (African America >60 (>=60 mL/min/1.73m^2); Estimated GFR (Non-African Ame 60 (>=60 mL/min/1.73m^2); Globulin 4.8 g/dL; Glucose 198 mg/dL (74-106); Potassium 4.0 mmol/L (3.5-5.1); Sodium 145 mmol/L (136-145); Total Protein 8.0 g/dL (6.4-8.2)
[2025-05-24 10:26] LABS: NT Pro B Type Natriuretic Pept 198.0 pg/mL (<=900.0)
[2025-05-24] MEDS: 0.9 % SODIUM CHLORIDE 1,000 ML 1000 ML IV (11:04)
== END 2025-05-24 11:53 | disposition home or self-care (01) ==
PROVIDERS: Emergency Provider Emergency Medicine; PCP Nurse Practitioner
DX: M54.6 Pain in thoracic spine (principal); R07.9 Chest pain, unspecified; F17.200 Nicotine dependence, unspecified, uncomplicated
CPT/HCPCS: 36415; 71275; 80053; 83880; 84484; 85025; 93005; 96374; 99285; J1885; Q9967

== ENCOUNTER 2025-05-25 09:59 | Outpatient (OUT) | payer MEDICARE, SELFPAY ==
--- OUTSIDE RECORDS SUMMARY | 2025-05-25 10:06 | XMS_ITS | CCD ---
Author Organization [facility] Care Team Providers Care [employer] Delivery Driver Name Role Phone James Benavidez Primary Care Provider JAMES BENAVIDEZ Primary Care Unavailable SHENDGE, VITHAL Admitting Unavailable SHENDGE, VITHAL Attending Unavailable AICHHOLZ, MCKAYLA Primary Care Unavailable AICHHOLZ, MCKAYLA Referring Unavailable AICHHOLZ, MCKAYLA J Primary Care Physician Tico, Stephanie Unavailable OLE RAMIREZ Attending Unavailable OLE RAMIREZ Consulting Unavailable AICHHOLZ, DIESEL POWERPLANT MECHANIC MCKAYLA Primary Care Unavailable OLE RAMIREZ Admitting Unavailable ANTONY SHRESTHA Consulting Unavailable ALONDRA ., JACQUELINE Admitting Unavailable ALONDRA ., JACQULEINE Attending Unavailable AICHHOLZ, DIESEL POWERPLANT MECHANIC MCKAYLA Primary Care Unavailable AFSANEH Loera, DR BOLANOS Consulting Unavailable MARYANNE POWER Consulting Unavailable GLENN KERR Consulting Unavailable YOMAIRA KERR Consulting Unavailable HATTIE GOFF Consulting Unavailable ALONDRA ., JACQUELINE Consulting Unavailable TICO, STEPHANIE Attending Unavailable TICO, STEPHANIE Consulting Unavailable AICHHOLZ, DIESEL POWERPLANT MECHANIC MCKAYLA Primary Care Unavailable TICO, STEPHANIE Admitting Unavailable REGLA ., DR DUMONT Admitting Unavailable AICHHOLZ, DIESEL POWERPLANT MECHANIC MCKAYLA Primary Care Unavailable REGLA ., DR DUMONT Attending Unavailable ARAUZ ., DR DUMONT Consulting Unavailable COLLIN HUERTAS Consulting Unavailable CECILIA KAUFAMN Admitting Unavailable CECILIA KAUFMAN Attending Unavailable AICHHOLZ, DIESEL POWERPLANT MECHANIC MCKAYLA Primary Care Unavailable COMFORT PRETTY Attending Unavailable COMFORT PRETTY Admitting Unavailable AICHHOLZ, DIESEL POWERPLANT MECHANIC MCKAYLA Primary Care Unavailable AICHHOLZ, DIESEL POWERPLANT MECHANIC MCKAYLA Admitting Unavailable AICHHOLZ, DIESEL POWERPLANT MECHANIC MCKAYLA Primary Care Unavailable AICHHOLZ, DIESEL POWERPLANT MECHANIC MCKAYLA Attending Unavailable AICHHOLZ, DIESEL POWERPLANT MECHANIC MCKAYLA Consulting Unavailable LAKSHMIPATHY ., NARENDRANATH Attending Anette vailable LAKSHMIPATHY ., NARENDRANATH Consulting Anette vailable LAKSHMIPATHY ., NARENDRANATH Admitting Anette vailable AICHHOLZ, DIESEL POWERPLANT MECHANIC MCKAYLA Primary Care Unavailable VALENZUELA ., GIL Consulting Unavailable MORTENSEN ., DR CHAPARRO Aguillon Attending Unavailable MORTENSEN ., DR CHAPARRO Aguillon Admitting Unavailable AICHHOLZ, DIESEL POWERPLANT MECHANIC MCKAYLA Primary Care Unavailable VALENZUELA ., GIL Consulting Unavailable MORTENSEN ., DR CHAPARRO Aguillon Admitting Unavailable AICHHOLZ, DIESEL POWERPLANT MECHANIC MCKAYLA Primary Care Unavailable MORTENSEN ., DR CHAPARRO Aguillon Attending Unavailable HALKER ., SUBHASH Consulting Unavailable LAKSHMIPATHY ., NARENDRANATH Admitting Anette vailable LAKSHMIPATHY ., NARENDRANATH Attending Anette vailable AICHHOLZ, DIESEL POWERPLANT MECHANIC MCKAYLA Primary Care Unavailable MORTENSEN ., DR CHAPARRO Aguillon Attending Unavailable MORTENSEN ., DR CHAPARRO Aguillon Admitting Unavailable VALENZUELA ., GIL Consulting Unavailable AICHHOLZ, DIESEL POWERPLANT MECHANIC MCKAYLA Primary Care Unavailable VALENZUELA ., GIL Consulting Unavailable MORTENSEN ., DR CHAPARRO Aguillon Attending Unavailable MORTENSEN ., DR CHAPARRO Aguillon Admitting Unavailable AICHHOLZ, DIESEL POWERPLANT MECHANIC MCKAYLA Primary Care Unavailable HATTIE BRODERICK Attending Unavailable HATTIE BRODERICK Admitting Unavailable AICHHOLZ, DIESEL POWERPLANT MECHANIC MCKAYLA Primary Care Unavailable AICHHOLZ, DIESEL POWERPLANT MECHANIC MCKAYLA Admitting Unavailable AICHHOLZ, DIESEL POWERPLANT MECHANIC MCKAYLA Consulting Unavailable AICHHOLZ, DIESEL POWERPLANT MECHANIC MCKAYLA Primary Care Unavailable AICHHOLZ, DIESEL POWERPLANT MECHANIC MCKAYLA Attending Unavailable AICHHOLZ, DIESEL POWERPLANT MECHANIC MCKAYLA Primary Care Unavailable MISC, DR LESLIE Admitting Unavailable MISC, DR LESLIE Attending Unavailable MISC, DR LESLIE Consulting Unavailable DIAB ., MARIANO Admitting Unavailable DIAB ., MARIANO Attending Unavailable DIAB ., MARIANO Consulting Unavailable AICHHOLZ, DIESEL POWERPLANT MECHANIC MCKAYLA Primary Care Unavailable RASTEGAR, RICCO Consulting Unavailable AICHHOLZ, DIESEL POWERPLANT MECHANIC MCKAYLA Admitting Unavailable AICHHOLZ, DIESEL POWERPLANT MECHANIC MCKAYLA Primary Care Unavailable AICHHOLZ, DIESEL POWERPLANT MECHANIC MCKAYLA Attending Unavailable AICHHOLZ, DIESEL POWERPLANT MECHANIC MCKAYLA Consulting Unavailable DR PATRICIA VELOZ Consulting Unavailable TAMLYN ., CECILIA Attending Unavailable TAMLYN ., CECILIA Admitting Unavailable DR PATRICIA VELOZ Consulting Unavailable AICHHOLZ, DIESEL POWERPLANT MECHANIC MCKAYLA Primary Care Unavailable TAMLYN ., CECILIA Consulting Unavailable MORTENSEN ., DR CHAPARRO Aguillon Attending Unavailable FESTUS ., DR CHAPARRO Aguillon Consulting Unavailable FESTUS ., DR CHAPARRO Aguillon Admitting Unavailable AICHHOLZ, DIESEL POWERPLANT MECHANIC MCKAYLA Primary Care Unavailable HATTIE BRODERICK Attending Unavailable HATTIE BRODERICK Consulting Unavailable HATTIE BRODERICK Admitting Unavailable AICHHOLZ, DIESEL POWERPLANT MECHANIC MCKAYLA Primary Care Unavailable HATTIE BAUTISTA Unavailable AICHHOLZ, DIESEL POWERPLANT MECHANIC MCKAYLA Admitting Unavailable AICHHOLZ, DIESEL POWERPLANT MECHANIC MCKAYLA Attending Unavailable AICHHOLZ, DIESEL POWERPLANT MECHANIC MCKAYLA Consulting Unavailable AICHHOLZ, DIESEL POWERPLANT MECHANIC MCKAYLA Primary Care Unavailable Ty Amin MD Primary Care Provider Ty Amin MD Primary Care Provider Aichholz BLENDING COORDINATOR, Mckayla Unavailable Aichholz BLENDING COORDINATOR, Mckayla Unavailable AICHHOLZ, MCKAYLA Attending Unavailable LIBBY, AHMAD F Attending Unavailable AICHHOLZ, MCKAYLA Attending Unavailable AICHHOLZ, MCKAYLA Attending Unavailable AICHHOLZ, MCKAYLA Attending Unavailable LIBBY, AHMAD F Attending Unavailable AICHHOLZ, MCKAYLA Attending Unavailable LIBBY, AHMAD F Attending Unavailable LIBBY, AHMAD F Referring Unavailable AICHHOLZ, MCKAYLA Attending Unavailable Aichholz BLENDING COORDINATOR, Mckayla Unavailable Aichholz BLENDING COORDINATOR-C, Mckayla J Primary Care Provider Price Arora DO Attending Provider [phone] Flynn Urias DPM Attending Provider Aichholz BLENDING COORDINATOR-C, Mckayla J Attending Provider AMI ORO Attending Unavailable DAKOTAH BRIDGES Attending Unavailable Elbert ARAUZ Attending Unavailable GAVIOTA ADAMES Attending Unavailable Ty Amin MD Primary Care Provider Aichholz BLENDING COORDINATOR, Mckayla Unavailable Aichholz BLENDING COORDINATOR, Mckayla Unavailable Ty Amin MD Primary Care Provider Bob SHOP SUPERINTENDENT-DIESEL POWERPLANT MECHANIC, Omero Lovell Attending Unav ailable Aichholz SHOP SUPERINTENDENT-DIESEL POWERPLANT MECHANIC, Mckayla Lennon Primary Care Unava ilable Adonay DPM, Flynn Arzate Attending Unavailab le Adonay DPM, Flynn Arzate Attending Unavailab le Aichholz SHOP SUPERINTENDENT-DIESEL POWERPLANT MECHANIC, Mckayla Lennon Primary Care Unava ilable Adonay DPM, Flynn Arzate Attending Unavailab le Adonay DPM, Flynn Arzate Attending Unavailab le Aichholz SHOP SUPERINTENDENT-DIESEL POWERPLANT MECHANIC, Mckayla Lennon Primary Care Unava ilable Aichholz SHOP SUPERINTENDENT-DIESEL POWERPLANT MECHANIC, Mckayla Lennon Primary Care Unava ilable Adonay DPM, Flynn Arzate Attending Unavailab le Aichholz SHOP SUPERINTENDENT-DIESEL POWERPLANT MECHANIC, Mckayla Lennon Primary Care Unava ilable Bob SHOP SUPERINTENDENT-DIESEL POWERPLANT MECHANIC, Omero Lovell Attending Unav ailable Aichholz SHOP SUPERINTENDENT-DIESEL POWERPLANT MECHANIC, Mckayla Lennon Primary Care Unava ilable Adonay DPM, Flynn Arzate Attending Unavailab le Adonay DPM, Flynn Arzate Attending Unavailab le Bob SHOP SUPERINTENDENT-DIESEL POWERPLANT MECHANIC, Omero Lovell Consulting Unav ailable Aichholz SHOP SUPERINTENDENT-DIESEL POWERPLANT MECHANIC, cMkayla Lennon Primary Care Unava ilable Corinne Kellogg MD Attending Unavail able Bob SHOP SUPERINTENDENT-DIESEL POWERPLANT MECHANIC, Omero Lovell Attending Unav ailable Adonay DPM, Flynn Arzate Referring Unavailab le Allergies Allergy ClassificationReported Allergen(s)Allergy TypeDate of OnsetReaction(s) Facility (1 source)No Known Medication Allergies; Translations: [No Known Medication Allergies]Propensity to adverse reactions (disorder)[facility] Medications Current Medications MedicationDrug Class(es)DatesSig (Normalized)Sig (Original)0.5 ML tirzepatide 30 MG/ML Auto-Injector [Mounjaro] (1 source)Start: 52-88-5851cmutoc 15 mg by subcutaneous injection every week Mounjaro 15 mg/0.5 mL subcutaneous solution INJECT 15MG SUBCUTANEOUSLY ONCE A WEEK Start Date: 06/11/24 Status: Orderedacetaminophen 325 mg / HYDROcodone bitartrate 5 mg oral tablet (20 sources)Opioid AgonistStart: 32-64-4276iqbsishocmjid-hydrocodone 325 mg-5 mg oral tablet Refill(s) 0 Start Date: 02/06/22 Status: OrderedStart: 12-13-2017 End: 34-79-4620ldkm 1 tablet by mouth every four hoursHydrocodone-Acetaminophen ([place]) 5-325 mg tablet Discontinued 1 TAB PO Q4H 15 0 December 13, 2017 April 05, 2025 12:52pm Fracture of humerus painStart: 39-07-2743jwxv 1 tablet by mouth every four to six hours as needed for painHYDROcodone-acetaminophen ([place]) 5-325 MG tablet 1 tablet 3 (three) times a day as needed for severe pain. Activetake 1 tablet by mouth twice daily as neededNorco 5-325 MG 1 tablet as needed Orally TWICE A DAY Activealbuterol 0.83 mg/ml inhalation solution (20 sources)beta2-Adrenergic AgonistStart: 54-82-4802kqmw 2.5 mg by inhalation every four to six hours as neededStart: 11-00-5939vxovdupga 0.083% Inh Tracey 3 mL Refill(s) 0 [...] oral tablet (20 sources)Tricyclic AntidepressantStart: 02-06-2022 End: 60-16-5954udkf 1 tablet by mouth once daily at bedtimeaspirin 81 mg chewable tablet (20 sources)Platelet Aggregation Inhibitor, Nonsteroidal Anti-inflammatory Drug Start: 11-01-2023 End: 16-24-8664qpxx 1 tablet by mouth once dailyaspirin 81 MG chewable tablet Chew 81 mg in the morning. 0 Activebaclofen 10 mg oral tablet (20 sources)gamma-Aminobutyric Acid-ergic AgonistStart: 07-49-2614qgve 1 tablet by mouth every eight hours as neededStart: 39-49-2820fqyy 1 tablet by mouth in the morning, then take 1 tablet by mouth in the evening, then take 1 tablet by mouth at bedtimebaclofen (Lioresal) 10 MG tablet Take 10 mg by mouth in the morning and 10 mg in the evening and 10mg before bedtime. 06/24/2024 Psyceo24 actuat budesonide 0.16 mg/actuat / formoterol fumarate [...] tablet (20 sources)Histamine-1 Receptor AntagonistStart: 11-01-2023 End: 82-43-0132jpyw 1 tablet by mouth once daily as neededtake 1 tablet by mouth in the morningcetirizine (ZyrTEC) 10 MG tablet Take 10 mg by mouth in the morning. 0 Activedapagliflozin 10 mg oral tablet (20 sources)Sodium-Glucose Cotransporter 2 InhibitorStart: 01-17-2024 End: 82-85-1053seno 1 tablet by mouth once dailyStart: 08-14-2023 End: 43-58-5842cqgr 1 tablet by mouth in the morningdapagliflozin (Farxiga) 10 MG Indications: Type 2 diabetes mellitus with unspecified complications ( CMS/HCC) Take 1 tablet (10 mg) by mouth in the morning. 90 tablet 1 08/14/2023 11/12/2023 Activediclofenac sodium 75 mg delayed release oral tablet (20 sources)Nonsteroidal Anti-inflammatory DrugStart: 63-35-4624kucs 1 tablet by mouth twice daily0.5 ML dulaglutide 9 MG/ML Auto-Injector [Trulicity] (4 sources)GLP-1 Receptor AgonistStart: 94-06-9513Wlbrlvbuh Pen 4.5 mg/0.5 mL subcutaneous solution Refills(s) [...] sources)Serotonin and Norepinephrine Reuptake InhibitorStart: 11-01-2023 End: 07-31-1239mbiu 1 capsule by mouth twice dailyStart: 07-23-2023 End: 61-89-0648ljlh 1 capsule by mouth in the morningDULoxetine (Cymbalta) [address] capsule Indications: Anxiety and depression (CMS/HCC) Take 1 capsule(60 mg) by mouth in the morning and 1 capsule (60 mg) before bedtime. Do not crush or chew.. 60 capsule 3 07/23/2023 08/22/2023 ActiveStart: 74-48-4292XHZvgumabj 30 mg Cap-EC Refills(s) 0 Start Date: 02/06/22 Status: OrderedDULoxetine 30 mg Cap-EC (2 sources)Start: 99-10-1635AJKyallitm 30 mg Cap-EC Refills(s) 0 Start Date: 02/06/22 Status: Orderedergocalciferol 1.25 mg oral capsule (20 sources)Provitamin D2 CompoundStart: 46-89-8620Ovxxd: 01-16-2025 End: 11-10-6873juxp 1 capsule by mouth every weekergocalciferol (Vitamin D2) 1.25 MG (25718 UT) capsule Indications: Vitamin D deficiency, unspecified Take 1 capsule (1.25 mg) by mouth 1 (one) time per week 12 capsule 1 01/16/2025 04/10/2025 ActiveStart: 10-27-2024 End: 89-97-9815jbgo 1 capsule by mouth two times weeklyergocalciferol (Vitamin D2) 1.25 MG (16309 UT) capsule Indications: Vitamin D deficiency, unspecified Take 1 capsule (1.25 mg) by mouth 2 (two) times a week 24 capsule 1 10/27/2024 01/19/2025 ActiveStart: 04-06-2024 End: 65-74-2595owtd 1 capsule by mouth every weekergocalciferol (Vitamin D2) 1.25 MG (43185 UT) capsule Indications: Vitamin D deficiency, unspecified TAKE 1 CAPSULE BY MOUTH ONE TIME PER WEEK 12 capsule 1 04/06/2024 10/27/2024 Discontinued (Reorder)fluconazole 150 mg oral tablet (20 sources)Azole AntifungalStart: 08-27-2024 End: 84-47-7470cgzensclgru (Diflucan) 150 MG tablet Indications: Antibiotic- induced yeast infection One time dose,repeat in 3 days . Do not take cholesterol pill while taking this medication. Once finished then resume 2 tablet 1 01/26/2025 ActiveStart: 08-17-2023 End: 40-37-0328qrppnmgftsc (Diflucan) 150 MG tablet Indications: Vaginal yeast infection Take 1 tablet (150 mg) bymouth in the morning for 2 days. One time dose, may repeat in 3 days. 2 tablet 1 08/17/2023 08/19/2023 Active End: 05-40-8037npfseawsvks (Diflucan) 150 MG tablet Take 200 mg by mouth in the morning. 0 08/17/2023 Discontinued(Reorder)furosemide 20 mg oral tablet (20 sources)Loop DiureticStart: 09-22-2024 End: 02-84-4516cbeo 1 tablet by mouth once dailyStart: 04-06-2024 End: 43-61-7604cdnc 1 tablet by mouth once dailyfurosemide (Lasix) 40 MG tablet Indications: Bilateral lower extremity edema Take 1 tablet (40 mg) by mouth Daily 90 tablet 1 04/06/2024 ActiveStart: 12-13-2017 End: 50-57-2452cgim 1 tablet by mouth once daily as [...] oral tablet (20 sources)Arteriolar VasodilatorStart: 09-13-2023 End: 82-30-6930gjpp 1 tablet by mouth twice dailysodium hypochlorite 2.5 mg/ml topical solution (14 sources)Start: 72-67-2030MqIgkr 0.25 % external solution APPLY TO GAUZE [...] with supper. 0 ActiveNovoLog (5 sources)Insulin AnalogStart: 31-76-8224OuugMnj SubCutaneous, TIDAC, Refills(s) 0 Start Date: 02/06/22 Status: OrderedNovoLOG 100 UNIT/ML as directed Injection SLIDING SCALE BEFORE EACH MEAL Active3 ml insulin glargine 100 unt/ml pen injector (20 sources)Insulin AnalogStart: 32-73-0269Uyrjx: 93-20-9130peqxygm glargine (Lantus SoloStar) 100 UNIT/ML pen Indications: Type 2 diabetes mellitus with hyperglycemia, with long-term current use of insulin (HCC) INJECT 58 UNITS SUBCUTANEOUSLY TWICE A DAY 105mL 2 02/16/2025 ActiveStart: 01-29-2025 End: 27-47-3536bgrzlg 58 [IU] by subcutaneous injection in the morninginsulin glargine (Lantus) 100 UNIT/ML injection Indications: Type 2 diabetes mellitus with hyperglycemia, with long-term current use of insulin (HCC) Inject 58 Units under the skin in the morning and58 Units before bedtime. 104.4 mL 1 01/29/2025 07/28/2025 ActiveStart: 29-82-5539Qnqmlu SoloStar 100 UNIT/ML pen 08/26/2024 ActiveStart: 10-30-2023 End: 69-76-1810Oasyfv SoloStar 100 UNIT/ML pen 10/30/2023 04/14/2024 Discontinued (Therapy completed)Start: 46-92-7378Iydlyk Solostar Pen 100 units/mL subcutaneous solution Refills(s) 0 Start Date: 02/06/22 Status: Ordered Start: 12-13-2017 End: 95-11-6490ljurcu 50 [IU] by subcutaneous injection twice dailyInsulin Glargine (Lantus U-100 Insulin) 100 unit/mL Solution Discontinued 50 UNIT SUBCUT Twice daily December 13, 2017 12:00am April 05, 2025 12:53pmLantus SoloStar 100 UNIT/ML as directed Subcutaneous 58 UNITS ONCE A DAY Active3 ml insulin lispro 100 unt/ml pen injector (20 sources)Insulin AnalogStart: 10-06-2023 End: 84-53-3774HdmvTFM KWIKPEN 100 UNIT/ML injection Inject under the skin 10/06/2023 04/14/2024 Discontinued (Therapy completed)Start: 99-91-3567gnzrhf 1 [IU] by subcutaneous injection before mealtimeInsulin [...] lactate 120 mg/ml topical lotion (20 sources)Start: 74-19-9097Hgyay: 67-69-0985kgzchlgf lactate (Lac-Hydrin) 12 % lotion 07/22/2024 ActiveStart: 83-02-1303ltctvvqm lactate (Lac-Hydrin) 12 % lotion APPLY TO BILATERAL FEET EVERY DAY 07/22/2024 Activelisinopril 20 mg oral tablet (20 sources)Angiotensin Converting Enzyme InhibitorStart: 02-06-2022 End: 29-00-8926xttt 1 tablet by mouth once dailymeloxicam (5 sources)Nonsteroidal Anti-inflammatory DrugStart: 96-53-4032lnjpdriws Daily, Refills(s) 0 Start Date: 02/06/22 Status: Orderedtake 1 tablet by mouth every twenty-four hoursMeloxicam 7.5 MG 1 tablet Orally Once a day ActivemetFORMIN hydrochloride 1000 mg oral tablet (1 source)Biguanidetake 1 tablet by mouth twice daily at mealtimemetFORMIN (GLUCOPHAGE) 1000 MG tablet Take 1,000 mg by mouth 2 times daily (with meals). 0 ActiveMounjaro 10 MG/0.5ML solution pen-injector (4 sources)Start: 10-22-2023 End: 74-57-3453htrrex 10 mg by subcutaneous injection every weekMounjaro 10 MG/0.5ML solution pen-injector INJECT 10MG SUBCUTANEOUSLY ONCE A WEEK 10/22/2023 04/14/2024 Discontinued (Therapy completed)Start: 78-11-1000nlqhwm 10 mg by subcutaneous injection every weekMounjaro 10 MG/0.5ML solution pen-injector INJECT 10MG SUBCUTANEOUSLY ONCE A WEEK 10/22/2023 ActiveMounjaro 15 MG/0.5ML solution auto-injector (8 sources)Start: 27-91-8911Mveyhnrg 15 MG/0.5ML solution auto-injector Inject 15 mg as directed every 7 (seven) days 02/18/2024 Activenaloxone hydrochloride 40 mg/ml nasal spray (20 sources)Opioid AntagonistStart: 29-64-4706Wignc: 09-06-9705hevamcms (Narcan) 4 mg/0.1 mL nasal spray Administer 4 mg into affected nostril(s) if needed 07/04/2024 Suymym52 hr nicotine 0.875 mg/hr transdermal system (20 sources)Cholinergic Nicotinic AgonistStart: 07-14-2024 End: 96-89-0685vedgelae (Nicoderm, Step 1) 21 MG/24HR patch Indications: [...] capsule (20 sources)Proton Pump InhibitorStart: 12-25-2023 End: 13-01-8747dipa 1 capsule by mouth once dailytake 1 capsule by mouth before mealtimeomeprazole (PriLOSEC) [address] capsule Take 20 mg by mouth in the morning. Take before meals. Do not crush or chew. . 0 ActiveOxygen (20 sources)oxygen (O2) gas Inhale 2 L/min continuously via nasal canula Active potassium chloride 10 meq extended release oral tablet (20 sources)Start: 28-95-6821Rxwsb: 02-06-2022 End: 61-28-1353pxws 1 capsule by mouth once daily in the morningpotassium chloride ER (Micro-K) 10 MEQ ER capsule Indications: Bilateral lower extremity edema Take1 capsule (10 mEq) by mouth Daily Take 1 capsule (10 mEq) by mouth in the morning. 90 capsule 1 01/26/2025 04/26/2025 ActiveStart: 12-13-2017 End: 98-44-6955Edqlqvaxc Chloride (Klor-Con 10) 10 mEq Tablet Extended Release Discontinued 10 MEQ PO Twice daily December 13, 2017 12:00am April 05, 2025 12:56pmtake 1 tablet by mouth every twenty-four hoursPotassium Chloride ER 10 MEQ 1 tablet with food Orally Once a day ActivepredniSONE 10 mg oral tablet (11 sources)Start: 79-33-7451ujqyiiWRDA (Deltasone) 10 MG tablet 4 TABS X3 DAYS, 3TABS X3 DAYS, 2 TABS X3 DAYS, 1 TAB X3 DAYS, 1/2 TAB X4 DAYS 12/05/2024 Active pregabalin 150 mg oral capsule (20 sources)Start: 98-29-5930nnkk 1 capsule by mouth once dailyStart: 08-13-2024 take 1 capsule by mouth once dailypregabalin (Lyrica) 150 MG capsule Take 150 mg by mouth Daily 08/13/2024 ActiveStart: 96-00-0686Jkyqpt Oral, Refills(s) 0 Start Date: 02/06/22 Status: OrderedStart: 12-13-2017 End: 22-39-1920vxif 1 capsule by mouth in the morningpregabalin (Lyrica) 300 MG capsule Indications: Diabetic polyneuropathy associated with type 2 diabetes mellitus (HCC) Take 1 capsule (300 mg) by mouth in the morning and 1 capsule (300 mg) before bedtime. 60 capsule 5 04/14/2024 Activeroflumilast 0.5 mg oral tablet (20 sources)Phosphodiesterase 4 InhibitorStart: 01-04-2024 End: 84-81-0820xtum 1 tablet by mouth once dailysimvastatin 10 mg oral tablet (20 sources)HMG-CoA Reductase InhibitorStart: 12-19-2024 End: 11-84-3922sref 1 tablet by mouth once daily at bedtimeStart: 04-06-2024 End: 70-65-4848soer 1 tablet by mouth at bedtimesimvastatin (Zocor) 10 MG tablet Indications: Hyperlipidemia, unspecified (CMS/HCC) Take 1 tablet (10 mg) by mouth at bedtime 90 tablet 1 08/27/2024 ActiveStart: 06-15-2023 End: 06-11-1847yfiu 1 tablet by mouth in the morningsimvastatin (Zocor) 10 MG tablet Indications: Hyperlipidemia, unspecified (CMS/HCC) Take 1 tablet (10 mg) by mouth in the morning. 90 tablet 1 06/15/2023 09/13/2023 ActiveStart: 12-13-2017 End: 55-25-0936gjbf 1 tablet by mouth once daily in the eveningSimvastatin 20 mg Tablet Discontinued 20 MG PO Every evening December 13, 2017 12:00am March 1:00pmsulfamethoxazole 800 mg / trimethoprim 160 mg oral tablet (15 sources)Dihydrofolate Reductase Inhibitor Antibacterial, Sulfonamide AntimicrobialStart: 15-94-2360odnc 1 tablet by mouth twice daily sulfamethoxazole-trimethoprim (Bactrim DS) 800-160 MG per tablet TAKE 1 TABLET BY MOUTH TWICE A DAYFOR 14 DAYS 01/14/2025 ActiveStart: 08-27-2024 End: 32-57-5020crnduxhqfrhlnqvf-trimethoprim (Bactrim DS) 800-160 MG per tablet 08/27/2024 10/27/2024 Discontinued(Therapy completed)Symbicort 160/4.5 inhalation aerosol with adapter (3 sources)Start: 35-76-4141Dydmeveoz 160/4.5 inhalation aerosol with adapter Refill(s) 0 Start Date: 02/06/22 Status: Egflyxn51 actuat tiotropium 0.0025 mg/actuat inhalation spray (7 sources)AnticholinergicStart: 76-75-9805Ovdqumg Respimat 60 ACT 2.5 mcg/inh inhalation aerosol Refills(s) 0 Start Date: 02/06/22 Status: Orderedtake 2 puff(s) by inhalation in the morningtiotropium (Spiriva Respimat) 2.5 MCG/ACT inhaler Inhale 2 puffs in the morning. 0 Activetake 2 puff(s) by inhalation twice daily Spiriva Respimat 2.5 MCG/ACT 2 puffs Inhalation TWICE A DAY ActiveTirzepatide (2 sources)Start: 83-97-7630Nysiiwqwxxt (Mounjaro) 15 MG/0.5ML solution auto-injector (20 sources)Start: 48-33-6420msusrm 15 mg by subcutaneous injection every week Tirzepatide (Mounjaro) 15 MG/0.5ML solution auto-injector Indications: Type 2 diabetes mellitus with other circulatory complications (HCC) Inject 15 mg under the skin 1 (one) time per week 6 mL 1 02/27/2025 ActiveStart: 35-28-3670wbbqtn 15 mg by subcutaneous injection every weekTirzepatide (Mounjaro) 15 MG/0.5ML solution auto-injector Indications: Type 2 diabetes mellitus with other circulatory complications (HCC) INJECT 15MG SUBCUTANEOUSLY ONCE A WEEK 6 mL 1 07/07/2024 ActiveStart: 75-10-5682zyjtkv 15 mg by subcutaneous injection every weekTirzepatide (Mounjaro) 15 MG/0.5ML solution auto-injector Indications: Type 2 diabetes mellitus with other circulatory complications INJECT 15MG SUBCUTANEOUSLY ONCE A WEEK 6 mL 1 07/07/2024 ActiveStart: 87-07-8508isvzrf 15 mg by subcutaneous injection every weekTirzepatide [...] oral tablet (20 sources)Partial Cholinergic Nicotinic AgonistStart: 14-45-1023ihva 1 tablet by mouth twice dailyStart: 12-19-2024 End: 31-46-0790moju 1 tablet by mouth in the morningvarenicline (Chantix) 1 MG tablet Indications: Tobacco user , Encounter for smoking cessation counseling TAKE 1 TABLET BY MOUTH IN THE MORNING AND 1 TABLET BEFORE BEDTIME. TAKE WITH FULL GLASS OF WATER. 60 tablet 1 03/09/2025 ActiveStart: 08-27-2024 End: 27-98-5959sawe 1 tablet by mouth in the morningvarenicline (Chantix) 1 MG tablet Indications: Tobacco user , Encounter for smoking cessation counseling Take 1 tablet (1 mg) by mouth in the morning and 1 tablet (1 mg) before bedtime. Take with full glass of water.. 60 tablet 1 08/27/2024 ActiveStart: 12-05-2023 End: 24-34-4150Hmfpuedcnsa Tartrate, Starter, 0.5 MG X 11 & 1 MG X 42 tablet [facility]/05/2023 07/14/2024 Discontinued (Therapy completed)Start: 78-09-5809Zrsilnpsqmq Tartrate, Starter, 0.5 MG X 11 & 1 MG X 42 tablet therapy [facility] [facility] 12[facility]05/2023 Active Completed/Discontinued Medications MedicationDrug Class(es)DatesSig (Normalized)Sig (Original)amoxicillin 875 mg / clavulanate 125 mg oral tablet (6 sources)Penicillin-class AntibacterialStart: 12-05-2024 End: 96-49-6493hakn 1 tablet by mouth every twelve hoursamoxicillin-clavulanate (Augmentin) 875-125 MG tablet Take 1 tablet by mouth every 12 (twelve) hours 12/05/2024 01/26/2025 Discontinued (Therapy completed)cephalexin 500 mg oral capsule (9 sources)Cephalosporin AntibacterialStart: 2024 End: 72-17-7913ckocxmbkgl (Keflex) 500 MG capsule 2024 10/27/2024 Discontinued (Therapy completed)Glucose Blood (ACCU-CHEK JAQUI PLUS ) (14 sources) End: 56-03-9165Gbxokuq Blood (ACCU-CHEK JAQUI PLUS ) 4 (four) times a day. 07/14/2024 Discontinued (Therapy completed)Glucose Blood (ACCU-CHEK JAQUI PLUS ) 4 (four) times a day. ActiveGlucose Blood (ACCU-CHEK JAQUI PLUS ) 4 (four) times a day. 0 Active3 ml liraglutide 6 mg/ml pen injector (6 sources)GLP-1 Receptor Agonist End: 05-85-3714htkodcqufxe (Victoza) 18 MG/3ML injection Inject under the skin Daily 07/14/2024 Discontinued (Therapy completed)naproxen 500 mg oral tablet (2 sources)Nonsteroidal Anti-inflammatory DrugStart: 12-13-2017 End: 41-00-8872dzvz 1 tablet by mouth twice daily at mealtimeNaproxen 500 mg tablet Discontinued 500 MG PO Twice daily 20 0 December 13, 2017 12:00am April 05, 2025 12:53pm administer with food or milknortriptyline 50 mg oral capsule (18 sources)Tricyclic AntidepressantStart: 12-13-2017 End: 68-91-5542rnca 1 capsule by mouth once daily at bedtimeNortriptyline 50 mg Capsule Discontinued 50 MG PO Daily at bedtime December 13, 2017 12:00am April 05, 2025 12:53pmubrogepant 100 mg oral tablet (12 sources) End: 57-05-2226nzhk 1 tablet by mouth every twenty-four hours as needed Ubrogepant (Ubrelvy) 100 MG tablet Take 100 mg by mouth Daily as needed 07/14/2024 Discontinued (Therapy completed) Problems Active Problems Problem ClassificationProblemDateDocumented DateEpisodic/ChronicAbdominal pain (6 sources)Left flank pain; Translations: [Lower abdominal pain, unspecified] Onset: 892061-34-9293FcyunnyjWhnkjxgk foot deformities (1 source)Other hammer toe(s) (acquired), right foot; Translations: [OTHER HAMMER TOES ACQUIRED RT FOOT]Onset: 65-52-5136UeiepruTigvdbwd foot deformities (1 source)Other hammer toe(s) (acquired), left foot; Translations: [OTHER HAMMER TOES ACQUIRED LT FOOT]Onset: 83-38-7450HykxfqvUcgzlya disorders (20 sources)Mixed anxiety and depressive disorder; Translations: [Anxiety disorder, unspecified]Onset: 545045-15-6891CkxbpbqMlljmy (20 sources)Asthma; Translations: [Unspecified asthma, uncomplicated]Onset: 982542-05-7303FjzyhazMkqqdh of cervix (20 sources)Malignant tumor of cervix; Translations: [Malignant neoplasm of cervix uteri, unspecified]Onset: 213800-29-7283PqdkkgjYshrjx of cervix (2 sources)History of malignant neoplasm of cervix; Translations: [Personal history of malignant neoplasm of cervix uteri]65-34-8535ComckmskXijxuad kidney disease (5 sources)Chronic kidney disease; Translations: [Chronic kidney disease, unspecified]Onset: 02-20-2022 Resolved: 06-99-3517IfhixkkOewgxyh obstructive pulmonary disease and bronchiectasis (20 sources)Pulmonary emphysema; Translations: [Chronic obstructive pulmonary disease with (acute) exacerbation]Onset: 136024-46-0960YbeodvsIicirqn ulcer of skin (20 sources)Non-pressure chronic ulcer of other part of right lower leg limited to breakdown of skin; Translations: [Non-pressure chronic ulcer of other part of left lower leg limited to breakdown of skin]Onset: 636680-92-6461Pvylnyc Congestive heart failure; nonhypertensive (20 sources)Chronic diastolic heart failure; Translations: [Chronic diastolic (congestive) heart failure]Onset: 905361-14-4916QpxdrkpIgsykekq mellitus with complications (20 sources)Disorder of kidney due to diabetes mellitus; Translations: [Type 2 diabetes mellitus with diabetic chronic kidney disease]Onset: 02-20-2022 Resolved: 62-08-8303WocnspmUcaxbaqu mellitus without complication (13 sources)Type 2 diabetes mellitus; Translations: [Type 2 diabetes mellitus without complications]Onset: 868721-32-7571HwcortdMhekkdwdk of lipid metabolism (20 sources)Pure hypercholesterolemia, unspecified; Translations: [Hyperlipidemia, unspecified]Onset: 681821-39-5947AdgwpxvNxdjupllsh disorders (20 sources)Gastro-esophageal reflux disease without esophagitis; Translations: [Gastroesophageal reflux disease]Onset: 12-05-2022 Resolved: 009621-38-7971QrdclunSbodrbrij hypertension (20 sources)Hypertensive disorder; Translations: [Essential (primary) hypertension]Onset: 419552-15-2396VqkieqbWtwlxwsviurun symptoms and ill- defined conditions (20 sources)Mixed incontinence; Translations: [Incontinence]Onset: 02-06-2022 ChronicGout and other crystal arthropathies (20 sources)Gout; Translations: [Gout, unspecified]Onset: ChronicHypertension with complications and secondary hypertension (5 sources)Chronic kidney disease due to hypertension; Translations: [Hypertensive chronic kidney disease withstage 1 through stage 4 chronic kidney disease, or unspecified chronic kidney disease]Onset: 02-20-2022 Resolved: 89-13-2282CdifwkiNnve disorders (1 source)Major depressive disorder, single episode, unspecified; Translations: [ANASTACIO DEPRESS D/O SINGLE EPIS UNS]Onset: 30-24-4200TgvpqnxNlmrdxrjnidij gastroenteritis (1 source)Noninfective gastroenteritis and colitis, unspecified; Translations: [NONINFECTIVE GE AND COLITIS UNS]Onset: 44-71-7888HlarcayjVnuruxyjsmf deficiencies (20 sources)Vitamin D deficiency; Translations: [Vitamin D deficiency, unspecified]Onset: 900523-59-1676VrqqvjkJrayerovkzxqwg (20 sources)Arthritis; Translations: [Unspecified osteoarthritis, unspecified site]Onset: 709297-88-4186PorwgvuCrotc aftercare (1 source)Other fpc (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 therapy; Translations: [OTH [facility] CURRENT DRUG THERAPY]Onset: 13-04-3215XpsfwzseUdesc aftercare (1 source)senior care (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; Translations: [[facility] CURRENT USE OF ASPIRIN]Onset: 95-27-8690LmlkrqgbQjqun aftercare (6 sources)Long-term current use of insulin; Translations: [senior care (current) use of insulin]89-77-6933LurnmxfrZlvso and ill-defined heart disease (20 sources)Cardiomegaly; Translations: [Cardiomegaly]Onset: 10-25-2017 29-07-7329OxvqpxuHzqdr and ill-defined heart disease (1 source)Cardiomegaly; Translations: [Cardiomegaly]Onset: 03-23-1929Jfpyjza Other and unspecified benign neoplasm (1 source)Benign lipomatous tumor; Translations: [Benign lipomatous neoplasm of other sites]Onset: 27-46-5156UkwlktzfCioeh bone disease and musculoskeletal deformities (1 source)Acquired absence of other left toe(s); Translations: [ACQUIRED ABSENCE OF OTHER LEFT TOES]Onset: 64-78-9231DplldkovPewgz diseases of kidney and ureters (1 source)Urinary tract obstruction; Translations: [Other obstructive and reflux uropathy]Onset: 33-50-3852CqybgivxYjdvj diseases of veins and lymphatics (1 source)Chronic venous hypertension (idiopathic) with ulcer and inflammation of bilateral lower extremity; Translations: [CHRN KEO HTN ULCR INFLAM ALEX LW EXT]Onset: 74-65-6474WkkunkqUjpbc diseases of veins and lymphatics (1 source)Chronic venous hypertension (idiopathic) with ulcer of left lower extremity; Translations: [CHRON VENOUS HTN W/ULCER LT LW EXT]Onset: 09-01-2022 ChronicOther diseases of veins and lymphatics (1 source)Lymphedema, not elsewhere classified; Translations: [LYMPHEDEMA NOT ELSEWHERE CLASSIFIED]Onset: 99-59-5776MvqsiupGhuid diseases of veins and lymphatics (5 sources)Chronic peripheral venous hypertension with lower extremity complication; Translations: [Chronic venous hypertension (idiopathic) with ulcer of bilateral lower extremity]Onset: 109907-83-4307SoejnwbUscgj diseases of veins and lymphatics (20 sources)Chronic peripheral venous hypertension; Translations: [Chronic venous hypertension (idiopathic) with ulcer of bilateral lower extremity]Onset: 659537-36-7830DxggxjvShdjm diseases of veins and lymphatics (18 sources)Stasis dermatitis and venous ulcer of right lower extremity due to chronic peripheral venous hypertension; Translations: [Chronic venous hypertension (idiopathic) with ulcer and inflammation of rightlower extremity] Onset: 057764-46-4296LmkulevCimpf endocrine disorders (2 sources)Disorder of adrenal gland; Translations: [Other specified disorders of adrenal gland]Onset: 34-27-8056UgfajxrSujnv endocrine disorders (20 sources)Adrenal mass; Translations: [Disorder of adrenal gland, unspecified] Onset: 710349-15-7669NquwexcGynri endocrine disorders (2 sources)Disorder of adrenal gland, unspecifiedOnset: 02-20-2022 Resolved: 29-85-0589GpvsykhDwtam endocrine disorders (5 sources)Other specified disorders of adrenal gland; Translations: [OTHER SPEC DISORDERS ADRENAL GLAND]Onset: 29-29-8551DshmvgbCqjsj gastrointestinal disorders (3 sources)Adrenal igyd02-78-4548OfcbrtkfTkksh lower respiratory disease (1 source)Hypoxemia; Translations: [HYPOXEMIA]Onset: 51-67-3600WtnydyrzZapiv nervous system disorders (5 sources)Chronic pain syndrome; Translations: [CHRONIC PAIN SYNDROME]Onset: 33-01-0994HvitozsGcrjv nervous system disorders (1 source)Other chronic pain; Translations: [OTHER CHRONIC PAIN]Onset: 98-28-3826AxmknbbJtxhs non-traumatic joint disorders (4 sources)Pain in right hip; Translations: [PAIN IN RIGHT HIP]Onset: 04-27-2022 EpisodicOther nutritional; endocrine; and metabolic disorders (2 sources)Localized adiposity; Translations: [Localized adiposity]ChronicOther nutritional; endocrine; and metabolic disorders (20 sources)Body mass index 40+ - severely obese; Translations: [Body mass index (BMI) 50.0-59.9, adult]Onset: 390283-63-7747VfmdmfjNbbxv nutritional; endocrine; and metabolic disorders (3 sources)Body mass index (BMI) 50.0-59.9, adult; Translations: [BODY MASS INDEX BMI 50.0-59.9 ADULT]Onset: 20-55-6134XzxgjxwRiyzo nutritional; endocrine; and metabolic disorders (3 sources)Morbid (severe) obesity due to excess calories; Translations: [MORBID SEVERE OBES D/T EXCESS NHI]Onset: 20-10-3379PbvurkzBlbvh nutritional; endocrine; and metabolic disorders (1 source)Obesity, unspecified; Translations: [OBESITY UNSPECIFIED]Onset: 10-22-7976NmhuetjZqhxm nutritional; endocrine; and metabolic disorders (20 sources)Obesity caused by energy imbalance; Translations: [Morbid (severe) obesity due to excess calories]Onset: 645395-16-3733JymxsijIkjir screening for suspected conditions (not mental disorders or infectious disease) (1 source)Encounter for screening mammogram for malignant neoplasm of breast; Translations: [ENC SCR MAMMO MALIG NEOPLASM BREAST]Onset: 60-09-9610Jwupdwiy Other skin disorders (2 sources)Bilateral localized swelling of lower legs; Translations: [Localized swelling, mass and lump, lowerlimb, bilateral]12-65-9779LbhmbnewIankb upper respiratory disease (20 sources)Allergic rhinitis; Translations: [Other allergic rhinitis]Onset: 016244-79-8552QshweysSkrvnrfbkg and visceral atherosclerosis (20 sources)Peripheral vascular disease, unspecified; Translations: [Peripheral vascular disease, unspecified]Onset: 673294-06-6143XkzirjjGcdnlicpv heart disease (20 sources)Pulmonary hypertension; Translations: [Pulmonary hypertension, unspecified]Onset: 868188-40-3195WhqaieiDacmzzte codes; unclassified (3 sources)Obstructive sleep apnea (adult) (pediatric); Translations: [OBSTRUCTIVE SLEEP APNEA]Onset: 95-71-5087UbjbrvmHlpzqtri codes; unclassified (20 sources)Obstructive sleep apnea syndrome; Translations: [Obstructive sleep apnea (adult) (pediatric)]Onset: 661083-76-1916XdgearoZvrrtaxn codes; unclassified (1 source)Acquired absence of other specified parts of digestive tract; Translations: [ACQ ABSENCE OTH PART DIGESTV TRACT]Onset: 77-59-6282Xnhbbrhz Residual codes; unclassified (1 source)Acquired absence of both cervix and uterus; Translations: [ACQUIRED ABSENCE BOTH CERVIX AND UTERUS]Onset: 16-16-0552RohojgksIvyvcjej codes; unclassified (1 source)Family history of malignant neoplasm of ovary; Translations: [FAM HX MALIGNANT NEOPLASM OVARY]Onset: 86-01-3745MjfkjaikEzhcdsbx codes; unclassified (1 source)Family history of malignant neoplasm, unspecified; Translations: [FAM HX MALIGNANT NEOPLASM UNS]Onset: 09-62-8568VcwwxfsqHdxzlvzih-related disorders (20 sources)Nicotine dependence; Translations: [Nicotine dependence, unspecified, uncomplicated]Onset: 46-84-2987SbecnifYmcalgu on above:Added secondary to documentation in Social History.Unclassified (1 source)[facility] INJECT NONINSULN ANTIDIAB; Translations: [[facility] INJECT NONINSULN ANTIDIAB]Onset: 36-10-0254Lrxhvbetxtup (3 sources)CONTACT W/AND (SUSP) EXPOS COVID-19; Translations: [CONTACT W/AND (SUSP) EXPOS COVID-19]Onset: 84-81-9902Rraduzccyptr (3 sources)LOW BACK PAIN, UNSPECIFIED; Translations: [LOW BACK PAIN, UNSPECIFIED]Onset: 95-22-2901Ihjxnhayehjy (1 source)Obesity, class 3; Translations: [Obesity, class 3]Onset: 11-14-2023 Viral infection (1 source)COVID-19; Translations: [COVID-19]Onset: 09-29-2022 Past or Other Problems Problem ClassificationProblemDateDocumented DateEpisodic/ChronicAcquired foot deformities (1 source)Other deformities of toe(s) (acquired), left foot; Translations: [OTHER DEFORMITIES TOES ACQ LT FOOT]Onset: 13-60-5579Pzknwoyc Administrative/social admission (20 sources)Patient encounter status; Translations: [Dietary counseling and surveillance]Onset: 421908-93-6532YwmfmuqmUleahvnl of urinary tract (20 sources)Kidney stone; Translations: [Calculus of kidney]Onset: 02-06-2022 EpisodicE Codes: Natural/environment (1 source)Other and unspecified overexertion or strenuous movements or postures, initial encounter; Translations: [OTH AND UNS OVREXRT/STRN MVMT/POS INT]Onset: 41-27-9468YktgjkfxTtfii of unknown origin (18 sources)Fever; Translations: [Fever, unspecified]Onset: EpisodicGenitourinary symptoms and ill-defined conditions (20 sources)Proteinuria; Translations: [Proteinuria, unspecified]Onset: 02-06-2022 Resolved: 90-45-2538GhubgpmbMkvhfoqx; including migraine (20 sources)Headache; Translations: [Headache disorder]Onset: 01-17-2024 73-75-9196QinstjjnCpiorlsmjmnpl and screening for infectious disease (20 sources)Encounter for screening for other infectious and parasitic diseases; Translations: [Anti-nuclear factor positive]Onset: 671592-93-1311Mfpmobxq Mood disorders (20 sources)Mood disorders; Translations: [DEPRESSION UNSPECIFIED]Onset: 150030-00-9635Jqnxzvx (20 sources)Tinea unguium; Translations: [Candidiasis of vagina]Onset: 91-82-7247AlngfiunHfmqnmgattj deficiencies (20 sources)Vitamin deficiency; Translations: [Vitamin deficiency, unspecified] Onset: 418104-93-0057ZpaattqiImiix aftercare (3 sources)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; Translations: [HORTICULTURAL MANAGER CURRENT USE OF INSULIN]Onset: 99-76-4132WdshzcvtXmfbe aftercare (20 sources)Long-term current use of inhaled steroid; Translations: [intermediate project manager (current) use of inhaled steroids]Onset: 433274-33-1685DpxdhudpAqxwy and unspecified benign neoplasm (20 sources)Myelolipoma of adrenal gland; Translations: [Benign lipomatous neoplasm of other sites]Onset: 992676-28-7416VfzosgxgUagpm connective tissue disease (4 sources)Other muscle spasm; Translations: [OTHER MUSCLE SPASM]Onset: 24-50-0225RdvjnmjtFqsep diseases of veins and lymphatics (20 sources)Vascular insufficiency; Translations: [Venous insufficiency (chronic) (peripheral)]Onset: 439711-19-5379RqirzxqvFdldv diseases of veins and lymphatics (2 sources)Venous insufficiency (chronic) (peripheral); Translations: [Venous insufficiency (chronic) (peripheral)]Onset: 03-23-2131ZfsxeazwSamwz hematologic conditions (1 source)Secondary polycythemiaOnset: 03-08-2022 Resolved: 04-11-3669BbcihmlgXidlu nervous system disorders (20 sources)Reduced mobility; Translations: [Other abnormalities of gait and mobility]Onset: 814146-70-2751FdcqeodnRgfdn non-traumatic joint disorders (1 source)Effusion, left knee; Translations: [EFFUSION LEFT KNEE]Onset: 16-77-0732FouaolkyOjltk non-traumatic joint disorders (1 source)Pain in left knee; Translations: [PAIN IN LEFT KNEE]Onset: 07-26-2022 EpisodicOther non-traumatic joint disorders (20 sources)Pain in right knee; Translations: [Pain in joint, lower leg]Onset: 127695-53-2013ZzilxranOccnw nutritional; endocrine; and metabolic disorders (20 sources)Severe obesity; Translations: [Morbid (severe) obesity due to excess calories]Onset: 07-10-2023 Resolved: 986055-40-3858WckqmneMfyah nutritional; endocrine; and metabolic disorders (20 sources)Excess panniculus of abdomen; Translations: [Localized adiposity] Onset: 10-25-2017 Resolved: 795689-97-6617QnqldkpRtmzq skin disorders (1 source)Nail dystrophy; Translations: [NAIL DYSTROPHY]Onset: 09-01-2022 EpisodicOther skin disorders (1 source)Corns and callosities; Translations: [CORNS AND CALLOSITIES]Onset: 57-37-8020TmdscxonMshsm skin disorders (1 source)Xerosis cutis; Translations: [XEROSIS CUTIS]Onset: 29-33-3102Uzqgjnou Other skin disorders (20 sources)Hyperpigmentation of skin; Translations: [Disorder of pigmentation, unspecified]Onset: 283885-12-4587NwulkgoyXoicec media and related conditions (20 sources)Acute suppurative otitis media without spontaneous rupture of ear drum; Translations: [Acute suppurative otitis media without spontaneous rupture of ear drum, left ear]Onset: 01-17-2024 Resolved: 340498-80-7362DpufcybkBabfnmvnam disorders (not diabetes) (20 sources)Acute pancreatitis without necrosis or infection, unspecified; Translations: [Pancreatitis]Onset: 086709-41-1052QekvepqeRhvfjutkb (except that caused by tuberculosis or sexually transmitted disease) (20 sources)Pneumonia; Translations: [Pneumonia, unspecified organism]Onset: 09-17-2023 Resolved: 916191-71-7764KrwkjfouOqjjwljk codes; unclassified (3 sources)Localized edema; Translations: [LOCALIZED EDEMA]Onset: 09-01-2022 EpisodicResidual codes; unclassified (20 sources)Edema; Translations: [Edema, unspecified]Onset: 07-10-2023 Resolved: 115093-20-5771XtaefqcuRhjdfpcm codes; unclassified (20 sources)Bilateral lower limb edema; Translations: [Localized edema]Onset: 344737-58-1458NzoxdrioUniobctg codes; unclassified (20 sources)Insomnia; Translations: [Insomnia, unspecified]Onset: 09-17-2023 04-60-3360YcbjkemlYiilonqs codes; unclassified (20 sources)Tobacco user; Translations: [Tobacco use]Onset: 09-17-2023 Resolved: 780276-32-1518GpihuplbXmagsunw codes; unclassified (20 sources)Edema of lower extremity; Translations: [Localized edema]Onset: 09-17-2023 Resolved: 600728-57-0268WskzlcvbXvbk and subcutaneous tissue infections (20 sources)Cellulitis of right lower limb; Translations: [Cutaneous abscess of left axilla]Onset: 37-51-9186BjkjzpjzCabdgbhmwqn; intervertebral disc disorders; other back problems (20 sources)Lumbar radiculopathy; Translations: [Radiculopathy, lumbar region] Onset: 297309-37-5405PrhrnoewEfrgwqr and strains (1 source)Strain of muscle, fascia and tendon of lower back, initial encounter; Translations: [STRAIN MUSC FASC TENDON LW BACK INT]Onset: 85-87-5697Bczllsas Unclassified (1 source)CONTACT W/AND (SUSP) EXPOS COVID-19; Translations: [CONTACT W/AND (SUSP) EXPOS COVID-19]Onset: 71-41-3012Xvejzmkzdwic (1 source)LOW BACK PAIN, UNSPECIFIED; Translations: [LOW BACK PAIN, UNSPECIFIED] Onset: 27-15-3742Gkrdyeabveql (4 sources)Patient encounter mykotg77-43-6695Rwccarxyeryd (1 source)Obesity, class 3; Translations: [Obesity, class 3]Onset: 08-08-2024 Varicose veins of lower extremity (20 sources)Varicose veins of right lower extremity with ulcer of unspecified site; Translations: [Varicose veins of lower extremities with ulcer]Onset: 06-19-2024 Resolved: 366335-84-1787Elovprbf Results Test NameValueInterpretationReference RangeFacility.eGFRon 46-89-9345ETO/1.73 sq M.predicted MDRD (S/P/Bld) [Vol rate/Area]mL/min/{1.73_m2}Normal>=60BlMarietta Osteopathic ClinicComment on above:Result Comment: [facility] have implemented the eGFR calculation approach [...] Age = yearsPerformed By: #### EGFR #### [address] [address]ZTA w/ Diffon 65-76-8839Kzufociqnbo distribution width (RBC) [Ratio]20.0 %High11.6-14.8BBerger HospitalComment on above: Performed By: #### CBC #### [address] [address]Rouyyapjte (Bld) [Volume fraction]53.8 %High36.0-46.0[facility] HospitalComment on above:Performed By: #### CBC #### [address] [address]Ukclbhgzbp (Bld) [Mass/Vol]17.7 g/dKOgzm69.0-16.0[facility] HospitalComment on above:Performed By: #### CBC #### [address] [address]AFA (RBC) [Entitic mass]27.1 vkAtvkyq94.0-35.0[facility] HospitalComment on above:Performed By: #### CBC #### [address] [address]REIB84.9 %Sibtvn78.0-37.0[facility] HospitalComment on above:Performed By: #### CBC #### [address] [address]ZYY (RBC) [Entitic vol]82.2 fIHzvobw35.0-100.0[facility] HospitalComment on above:Performed By: #### CBC #### [address] [address]Hezykxpc070 x10*3/flOPgd165-882OwvxrakrcOhio Valley Surgical Hospital Comment on above:Performed By: #### CBC #### [address] [address]Jcitlbsu mean volume (Bld) [Entitic vol]10.4 fLNormal6.7-10.6 [facility] HospitalComment on above:Performed By: #### CBC #### [address] [address]XEX5.54 x10*6/mcLHigh3.80-5.20[facility] Comment on above:Performed By: #### CBC #### [address] [address]QUN11.6 x10*3/mcLHigh4.5-11.0[facility] Comment on above:Performed By: #### CBC #### [address] [address]XSTab 75-81-4546XHA [Mass/Vol]35.5 mg/LHigh0.0-9.9BBerger HospitalComment on above:Result Comment: For normal applications [...] FUTURE CARDIAC EVENTS.Performed By: #### CRP #### [address] [address]Mwwc Autoon 08-49-5097Voxm Absolute0.1 x10*3/mcLNormal0.0-0.2 [facility] HospitalComment on above:Performed By: #### .Automated Diff #### [address] [address]Suzqbuppw/100 WBC (Bld)0.5 %Normal0.0-1.5BBerger HospitalComment on above:Performed By: #### .Automated Diff #### [address] [address]Arx Absolute0.3 x10*3/mcLNormal0.0-0.4BCenterville SystemComment on above:Performed By: #### .Automated Diff #### [address] [address]Hyohihghvir/100 WBC (Bld)2.3 %Normal0.0-5.4BBerger HospitalComment on above:Performed By: #### .Automated Diff #### [address] [address]Qqcbz Absolute2.8 x10*3/mcLNormal1.0-4.8BBerger HospitalComment on above:Performed By: #### .Automated Diff #### [address] [address]Vkqyvsvcuix/100 WBC (Bld)22.5 %Low27.2-40.8BBerger HospitalComment on above:Performed By: #### .Automated Diff #### [address] [address]Zqtm Absolute0.6 x10*3/mcLNormal0.1-1.1BBerger HospitalComment on above:Performed By: #### .Automated Diff #### [address] [address]Xwnjlezqs/100 WBC (Bld)5.1 %Normal3.7-11.9BBerger HospitalComment on above:Performed By: #### .Automated Diff #### [address] [address]Ywvdyu Absolute8.8 x10*3/mcLHigh1.8-7.7BBerger HospitalComment on above:Performed By: #### .Automated Diff #### [address] [address]Xfhqrd Auto69.6 %Xnavhv91.2-70.8BBerger Hospital Comment on above:Performed By: #### .Automated Diff #### [address] [address]RNPid 34-61-3154Sjc Rate12 mm/hrNormal0-30[facility] HospitalComment on above:Performed By: #### ESR #### [address] [address]Ikjwspsq Office/Clinic Noteon 77-31-3260Cadqcbwc Office/Clinic NoteThe content of this note was [...] solely to facilitate the conversation. Missing Attachment [id number] Can be viewed in source system The [...] prescription lotion to the wounds. She takes [place] for pain and daily baby aspirin. She smokes and is on disability, and does not require [facility] paperwork. She reports recent blood flow studies [...] Orthopedic: Bony foot structur (more content not included)...[facility] HospitalComment on above:Order Comment: Missing Attachment [id number] Can be viewed in source systemMissing Attachment [id number] Can be viewed in source system Provider Letteron [phone] Letter Mckayla Blas, SHOP SUPERINTENDENT-DIESEL POWERPLANT MECHANIC [address] [place], [place] [id number] Re: Mitzi Macias Date of Visit: 05/18/2025 Dear Mckayla Blas APRN-SAYDA, [facility] Orthopedics and Sports Medicine [address] [place] [address], [phone] Date: 05/18/2025 12:46:10 Please see attached progress/office note regarding mutual patient, Mitzi Macias who was seen on04/29/2025 14:16:18. Please see attached note for further details and please call with any questions or concerns. Sincerely, KANDI Sampson Providers: The following document(s) were included in the letter: May 18, 2025 12:43:05 EST - (05/18/2025) Office Visit Note CAANormal [facility] HospitalRenal Panelon 14-27-7959Jmtjvhs [Mass/Vol]3.5 g/dL Low3.7-5.3BBerger HospitalComment on above:Performed By: #### RENAL #### [address] [address]Lttfc gap [Moles/Vol]6 mmol/LNormal4-12[facility] Surgical HospitalComment on above:Performed By: #### RENAL #### [address] [address]FYV Crea Ratio25.0 ivxpePqudxa74.0-25.0[facility] Surgical HospitalComment on above:Performed By: #### RENAL #### [address] [address]Phdgwef [Mass/Vol]9.0 mg/dLNormal8.6-10.3BBerger HospitalComment on above:Performed By: #### RENAL #### [address] [address]Mfhdkbys [Moles/Vol]105 mmol/WMoxpiu06-301JcokrofojOhio Valley Surgical HospitalComment on above:Performed By: #### RENAL #### [address] [address]KR0 [Moles/Vol]30 mmol/SRuvzyy55-11VefovvnvxOhio Valley Surgical HospitalComment on above:Performed By: #### RENAL #### [address] [address]Lbeppxxjlq [Mass/Vol]0.80 mg/dLNormal0.60-1.20[facility] HospitalComment on above:Performed By: #### RENAL #### [address] [address]Ccrtbso [Mass/Vol]137 mg/dXMuxs92-42GdouxobqpOhio Valley Surgical HospitalComment on above:Performed By: #### RENAL #### [address] [address]Houenituw [Mass/Vol]3.6 mg/dLNormal2.5-4.6BBerger HospitalComment on above:Performed By: #### RENAL #### [address] [address]Ckyaelxgz [Moles/Vol]4.5 mmol/LNormal3.4-4.8BBerger HospitalComment on above:Performed By: #### RENAL #### [address] [address]Ozvgnr [Moles/Vol]141 mmol/WLgjnco546-849RkwmhdtzhOhio Valley Surgical HospitalComment on above:Performed By: #### RENAL #### [address] [address]Vitv nitrogen [Mass/Vol]20 mg/dLNormal7-25[facility] Surgical HospitalComment on above:Performed By: #### RENAL #### [address] [address]Kfhpswxtfly 54-04-7810HgbrirvhzVquqlfurv From: Maria Elena Negrete To: EU - [...] ) Other: PROVIDER RELATED REMINDER:_ ( ) Yard Driver ( ) Call Pharmacy ( ) Call [...] unable to leave a message at this time.[facility] HospitalVascular Office/Clinic Noteon 91-56-4451Eclplooa Office/Clinic NoteChief Complaint Leg ulcer History of Present Illness Mitzi was referred by her transportation consultant for evaluation of PVD. She has had ulcers in the bilateral lower extremities above the ankle for about a year. She has been seen by wound care in [facility]. They are applying compression [...] signed by Corinne Kellogg MD 04/23/25 11:56 TDo[facility] VL Ankle Brachial Indiceson 83-14-6751JP Ankle Brachial IndicesPreliminary Technologist Report Ankle/brachial index study was performed. Please see below for information. Cook Relief: Zayra Ag, RVS Radiologist Report BILATERAL LOWER [...] please contact our Vascular Rehabilitation Department at [phone]. Final Signed by: Jose F Casanova MD Signed (Electronic Signature): 04.17.2025 3:28 pm Transcribed by: Jose F Casanova MD Transcribed DT/TM: 04.17.2025 3:12 (If Report is Signed, Electronically Signed in Other Vendor System)Normal [facility] HospitalBasophils Auto (Bld) [#/Vol]Ordered By: Flynn Urias on 45-11-0771Hqunvappx (Bld) [#/Vol]0.1 10 3/uL0.0-0.1FAdena Fayette Medical CenterBasophils/100 WBC Auto (Bld)Ordered By: Flynn Urias on 98-90-2024Bmnbkzhsc/100 WBC (Bld)0.6 %0.2-2.0[facility] Eosinophils/100 WBC Auto (Bld)Ordered By: Flynn Urias on 03-26-2025 Eosinophils/100 WBC (Bld)2.7 %0.9-7.0[facility] Erythrocyte distribution width Auto (RBC) [Ratio]Ordered By: Flynn Urias on 49-64-5230Cllxwaimfsh distribution width (RBC) [Ratio]16.4 %High11.0-15.[address] [facility] HospitalGlomerular filtration rate (GFR) estimation in non- AmericanOrdered By: Flynn Urias on 97-33-9055RAJ/1.73 sq M.predicted among non-blacks MDRD (S/P/Bld) [Vol rate/Area]mL/min/{1.73_m2}>=60 mL/min/1.73m 2FAdena Fayette Medical CenterHematocrit Auto (Bld) [Volume fraction]Ordered By: Flynn Urias on 67-70-1919Ytzjmssgvw (Bld) [Volume fraction]52.5 %High36.0-48.0[facility] HospitalHemoglobin [Mass/volume] in BloodOrdered By: Flynn Urias on 13-94-4139Fbabnjkhnw (Bld) [Mass/Vol]16.1 g/hNEaom22.0-16.0[facility] HospitalLaboratory - Chemistry and Chemistry - challengeOrdered By: Flynn Urias on 03-26-2025 Albumin [Mass/Vol]2.8 g/dLLow3.4-5.0[facility] HospitalCalcium [Mass/Vol]8.6 mg/dL8.5-10.1FAdena Fayette Medical CenterChloride [Moles/Vol] 105 mmol/X89-611YpiehmqvwMercy Health St. Elizabeth Boardman HospitalCO2 [Moles/Vol]31.5 mmol/L 21.0-32.0[facility] HospitalCreatinine [Mass/Vol]0.69 mg/dL 0.55-1.02[facility] HospitalGFR/1.73 sq M.predicted MDRD (S/P/Bld) [Vol rate/Area]mL/min/{1.73_m2}>=60 mL/min/1.73m 2FAdena Fayette Medical CenterGlucose [Mass/Vol]147 mg/lLUzau87-464GxwbxaybnMercy Health St. [facility] Potassium [Moles/Vol]4.2 mmol/L3.5-5.1FBrecksville VA / Crille Hospitalodium [Moles/Vol]141 mmol/K986-726PccspqewmMercy Health St. Elizabeth Board[facility] HospitalUrea nitrogen [Mass/Vol]15.0 mg/dL7.0-18.0[facility] HospitalUrea nitrogen/Creatinine [Mass ratio]21.7 mg/mgMercy Health St. Elizabeth Board[facility] Hospital Laboratory - Hematology and Cell countsOrdered By: Flynn Urias on 03-26-2025 ESR (Bld) [Velocity]48 mm/hHigh<=30[facility] HospitalImmature granulocytes/100 WBC (Bld)0.3 %0.0-0.5FAdena Fayette Medical Center Leukocytes [#/volume] corrected for nucleated erythrocytes in Blood by Automated counOrdered By: Flynn Urias on 33-97-9088HAO corrected for nucl RBC Auto (Bld) [#/Vol]10.0 10 3/uL4.0-11.0[facility] HospitalLymphocytes Auto (Bld) [#/Vol]Ordered By: Flynn Urias on 50-92-0474Iswebojknwl (Bld) [#/Vol]2.7 10 3/uL1.2-3.8[facility] HospitalLymphocytes/100 WBC Auto (Bld)Ordered By: Flynn Urias on 79-02-3581Ufwahuecanw/100 WBC (Bld)27.2 % 20.5-60.0[facility] Auto (RBC) [Entitic mass]Ordered By: Flynn Urias on 48-75-5233IDI (RBC) [Entitic mass]27.2 pg26.7-34.0[facility] HospitalHC Auto (RBC) [Mass/Vol]Ordered By: Flynn Urias on 06-50-3022JMGO (RBC) [Mass/Vol]30.7 g/dL29.9-35.2FAdena Fayette Medical CenterMCV Auto (RBC) [Entitic vol]Ordered By: Flynn Urias on 83-50-9717OHM (RBC) [Entitic vol]88.7 fL81.0-99.0[facility] HospitalMonocytes Auto (Bld) [#/Vol]Ordered By: Flynn Urias on 64-66-6862Lthdqoght (Bld) [#/Vol] 0.5 10 3/uL0.3-0.8[facility] HospitalMonocytes/100 WBC Auto (Bld) Ordered By: Flynn Urias on 74-74-3534Bbvajbhri/100 WBC (Bld)5.2 %1.7-12.[address] [facility] HospitalNeutrophils Auto (Bld) [#/Vol]Ordered By: Flynn Urias on 88-20-9467Rqkvgbjhsro (Bld) [#/Vol]6.4 10 3/uL1.4-6.5FAdena Fayette Medical CenterNeutrophils/100 WBC Auto (Bld)Ordered By: Flynn Urias on 26-51-8071Lodjsqbenht/100 WBC (Bld)64.0 %43.0-75.0[facility] HospitalNo Panel InformationOrdered By: Flynn Urias on 10-34-9589M-Reactive Protein, Quantitative3.94 mg/dLHigh<=0.50[facility] Eosinophils # (Auto)0.3 10 3/uL0.0-0.7FAdena Fayette Medical CenterImmature Granulocyte # (Auto)0.03 10 3/uL0.00-0.03[facility] Phosphorus Level3.5 mg/dL2.6-4.7FAdena Fayette Medical CenterPlatelet mean volume Auto (Bld) [Entitic vol]Ordered By: Flynn Urias on 20-33-4966Omjalbtv mean volume (Bld) [Entitic vol]12.8 fL9.5-13.5FAdena Fayette Medical Center Platelets Auto (Bld) [#/Vol]Ordered By: Flynn Urias on 05-67-1440Vqnjekkct (Bld) [#/Vol]146 10 3/pCXvs286-702FfzgkkhrvMercy Health St. Elizabeth Boardman HospitalRBC Auto (Bld) [#/Vol]Ordered By: Flynn Urias on 61-95-0559VTY (Bld) [#/Vol]5.92 10 6/uLHigh4.20-5.40[facility] Hospital - Youngstownerum or plasma anion gap determinationOrdered By: Flynn Urias on 71-00-4732Pzeku gap [Moles/Vol]8.7 mmol/LFAdena Fayette Medical CenterBasophils Auto (Bld) [#/Vol]Ordered By: Price Arora on 14-70-7429Erakubats (Bld) [#/Vol]0.1 10 3/uL0.0-0.1FAdena Fayette Medical CenterBasophils/100 WBC Auto (Bld)Ordered By: Price Arora on 19-97-0391Njqkqqlsy/100 WBC (Bld)0.4 %0.2-2.0[facility] Eosinophils/100 WBC Auto (Bld)Ordered By: Price Arora on 03-25-2025 Eosinophils/100 WBC (Bld)2.4 %0.9-7.0[facility] Erythrocyte distribution width Auto (RBC) [Ratio]Ordered By: Price Arora on 96-42-6876Zecyfapycdd distribution width (RBC) [Ratio]16.4 %High11.0-15.[address] [facility] HospitalGlomerular filtration rate (GFR) estimation in non- AmericanOrdered By: Price Arora on 18-73-4569AME/1.73 sq M.predicted among non-blacks MDRD (S/P/Bld) [Vol rate/Area]mL/min/{1.73_m2}>=60 mL/min/1.73m 2FAdena Fayette Medical CenterHematocrit Auto (Bld) [Volume fraction]Ordered By: Price Arora on 72-28-7047Mopmjriqke (Bld) [Volume fraction]56.6 %High36.0-48.0[facility] HospitalHemoglobin [Mass/volume] in BloodOrdered By: Price Arora on 18-82-2096Gjdvvetjym (Bld) [Mass/Vol]17.4 g/rZGuvi54.0-16.0[facility] HospitalLaboratory - Chemistry and Chemistry - challengeOrdered By: Price Arora on 03-25-2025 Bilirubin Ql (U)NegativeNEGATIVEMercy Health St. Elizabeth Boardman HospitalGlucose (U) [Mass/Vol]NegativeNEGATIVEMercy Health St. Elizabeth Boardman HospitalKetones Ql (U) NegativeNEGATIVEMercy Health St. Elizabeth Boardman HospitalpH (U)8.0 [pH]5.0-9.0[facility] Hospital - Youngstownpecific gravity (U) [Rel density]1.0201.005-1.[address] [facility] HospitalUrobilinogen Qn (U)1.0 {Little'U}/dL0.2-1.[address] [facility] HospitalCalcium [Mass/Vol]9.2 mg/dL8.5-10.1FAdena Fayette Medical CenterChloride [Moles/Vol]106 mmol/N63-367OzxfmvsodMercy Health St. Elizabeth Boardman HospitalCO2 [Moles/Vol]36.9 mmol/LHigh21.0-32.0[facility] HospitalCreatinine [Mass/Vol]0.86 mg/dL0.55-1.02[facility] GFR/1.73 sq M.predicted MDRD (S/P/Bld) [Vol rate/Area]mL/min/{1.73_m2}>=60 mL/min/1.73m 2FAdena Fayette Medical CenterGlucose [Mass/Vol]164 mg/dLHigh 74-106[facility] HospitalPotassium [Moles/Vol]4.0 mmol/L3.5-5.1 [facility] Hospital - Youngstownodium [Moles/Vol]144 mmol/O857-842YmanvtnaaMercy Health St. Elizabeth Boardman HospitalUrea nitrogen [Mass/Vol]14.0 mg/dL7.0-18.0[facility] HospitalUrea nitrogen/Creatinine [Mass ratio]16.3 mg/mgMercy Health St. Elizabeth Boardman HospitalLaboratory - Hematology and Cell countsOrdered By: Price Arora on 01-13-9905Vmotslmm granulocytes/100 WBC (Bld)0.3 %0.0-0.[address] [facility] HospitalLaboratory - Specimen informationOrdered By: Price Arora on 86-01-1225Kfgvdwtcvc (U)CLEARCLEARFAdena Fayette Medical CenterColor (U)LT. YELLOWYELLOWMercy Health St. Elizabeth Boardman HospitalLaboratory - UrinalysisOrdered By: Price Arora on 51-13-8962Frmnilp casts LM Ql (Urine sed) RAREMercy Health St. Elizabeth Boardman HospitalLeukocyte esterase Test strip Ql (U) NegativeNEGATIVEMercy Health St. Elizabeth Boardman HospitalMucus Ql (Urine sed)TRACE AbnormalNONE SEENMercy Health St. Elizabeth Boardman HospitalNitrite Ql (U)NegativeNEGATIVE [facility] HospitalProtein Ql (U)100 mg/dLAbnormalNEG/TRACE [facility] HospitalLeukocytes [#/volume] corrected for nucleated erythrocytes in Blood by Automated counOrdered By: Price Arora on 03-25-2025 WBC corrected for nucl RBC Auto (Bld) [#/Vol]11.8 10 3/uLHigh4.0-11.0[facility] HospitalLymphocytes Auto (Bld) [#/Vol]Ordered By: Price Arora on 05-11-5918Dwpsfwkviyu (Bld) [#/Vol]3.1 10 3/uL1.2-3.8[facility] HospitalLymphocytes/100 WBC Auto (Bld)Ordered By: Price Arora on 52-83-2474Hsyqkeyyuox/100 WBC (Bld)26.4 %20.5-60.0[facility] Auto (RBC) [Entitic mass]Ordered By: Price Arora on 74-16-2382CPN (RBC) [Entitic mass]27.5 pg26.7-34.0[facility] HospitalHC Auto (RBC) [Mass/Vol]Ordered By: Price Arora on 31-87-5052VODT (RBC) [Mass/Vol]30.7 g/dL29.9-35.2FAdena Fayette Medical CenterMCV Auto (RBC) [Entitic vol] Ordered By: Price Arora on 18-22-4609KEX (RBC) [Entitic vol]89.4 fL81.0-99.[address] [facility] HospitalMonocytes Auto (Bld) [#/Vol]Ordered By: Price Arora on 31-16-4825Esotwwvtw (Bld) [#/Vol]0.6 10 3/uL0.3-0.8[facility] HospitalMonocytes/100 WBC Auto (Bld)Ordered By: Price Arora on 16-32-9818Jruydhjmu/100 WBC (Bld)5.2 %1.7-12.0[facility] Neutrophils Auto (Bld) [#/Vol]Ordered By: Price Arora on 80-05-1385Gtccfrxkosk (Bld) [#/Vol]7.7 10 3/uLHigh1.4-6.5FAdena Fayette Medical Center Neutrophils/100 WBC Auto (Bld)Ordered By: Price Arora on 03-25-2025 Neutrophils/100 WBC (Bld)65.3 %43.0-75.0[facility] HospitalNo Panel InformationOrdered By: Price Arora on 97-52-8934Rhxoo BacteriaTRACE #/HPFAbnormalNONE SEENMercy Health St. Elizabeth Boardman HospitalUrine Culture ReflexedSelect Medical OhioHealth Rehabilitation HospitalUrine Occult BloodNegativeNEGATIVEMercy Health St. Elizabeth Boardman HospitalUrine Other CastsSEEN #/LPFAbnormalNONE [facility] WestUrine Other CrystalsNone Seen #/HPFNone [facility] HospitalUrine RBC0-2 #/HPF0-2FAdena Fayette Medical Center Urine Squamous Epithelial CellsFEW #/LPFAbnormalNONE/RAREMercy Health St. Elizabeth Board[facility] HospitalUrine WBC0-2 #/HPFAbnormalNONE [facility] Cleveland WestEosinophils # (Auto)0.3 10 3/uL0.0-0.7FAdena Fayette Medical Center Immature Granulocyte # (Auto)0.04 10 3/uLHigh0.00-0.03[facility] HospitalPlatelet mean volume Auto (Bld) [Entitic vol]Ordered By: Price Arora on 01-95-8226Qhuzfyhb mean volume (Bld) [Entitic vol]12.4 fL9.5-13.5FAdena Fayette Medical CenterPlatelets Auto (Bld) [#/Vol]Ordered By: Price Arora on 02-53-1602Dehzyntrq (Bld) [#/Vol]160 10 3/yH565-495PxcicfotqMercy Health St. Elizabeth Boardman HospitalRBC Auto (Bld) [#/Vol]Ordered By: Priceoh Arora on 95-91-1224DRT (Bld) [#/Vol]6.33 10 6/uLHigh4.20-5.40[facility] Hospital - Youngstownerum or plasma anion gap determinationOrdered By: Price Arora on 58-50-1853Wylur gap [Moles/Vol]5.1 mmol/LFAdena Fayette Medical CenterVascular Office/Clinic Noteon 63-04-1058Skydgwhv Office/Clinic NoteChief Complaint lle wound History of [...] She [facility] which she brought [...] by Omero Santana 03/23/25 12:01 [facility] HospitalPodiatry Office/Clinic Noteon 29-46-3057Lacqbxfi Office/Clinic NoteThe content of this note was generated by an [employer] (AI) language dictation. The patient or guardian [...] of this note was generated by an [employer] (AI) language dictation. The patient or guardian [...] of this note was generated by an [employer] (AI) language dictation. The patient or [...] wraps (gauze, tila bandage, Coban II, tuba merchandise adjustment clerk), Dakins solution, a 40-daycourse of antibiotics, and [...] other blood thinners. The patient resides in [place]. Review of Systems Constitutional: Negative for signs [...] their lower extremities Positi (more content not included)...Doctors HospitalComment on above:Order Comment: Missing Attachment [id number] Can be viewed in source systemXR Tibia/Fibula Righton 66-82-6702QD Tibia/Fibula Right2 views right tib- fib demonstrate: [...] Is Signed, Electronically Signed in Other Vendor System)[facility] HospitalResults Follow-Upon 77-18-2706Maxebzz Follow-Up [id number] Mitzi Macias 1970 F Date Provider Department Center 02/04/2025 Mikaela-AMI ORO CARDIOLOGY None Family History Problem Relation Age of Onset Heart attack Paternal Grandmother Family Status - Relation Status Age at Mother Father Paternal GrandmotherNDelaware County HospitalOrders Onlyon 82-93-3792Lyfkre [id number] Mitzi Macias 1970 F Date Provider Department Center 01/30/2025 [id number], HISTORICAL [facility] Family History Problem Relation Age of Onset Heart attack Paternal Grandmother Family Status - Relation Status Age at Mother Father Paternal GrandmotherNDelaware County HospitalCA ECHO DOPPLER COMPLETEon 69-47-3380[place] [address] Cardiology Report Signed Patient: MITZI MACIAS MR#: [id number] : 1970 Acct:[id number] Age/Sex: 54 / F ADM Date: 01/29/25 Loc: CARD Attending Dr: AMI ORO APRN Ordering Physician: AMI ORO APRN Date of Service: 01/29/25 Procedure(s): CA echo doppler complete Accession Number(s): [id number] cc: Mckayla Blas BLENDING COORDINATOR; AMI ORO APRN Patient Name: MITZI MACIAS MR#: [id number] : 1970 Exam Date: 01/29/2025 Ordering Doctor: AMI ORO DIESEL POWERPLANT MECHANIC ECHOCARDIOGRAM REPORT PROCEDURE: CA ECHO DOPPLER COMPLETE [...] HERRERA Signed By: 01/29/251839 DD/ 39 TD/TT: Clerical Transcriber:TBHRadiology, Radiologist, - 01/29/2025 [place] [address] Cardiology Report Signed Patient: MITZI MACIAS MR#: [id number] : 1970 Acct:[id number] Age/Sex: 54 / F ADM Date: 01/29/25 Loc: CARD Attending Dr: AMI ORO APRN Ordering Physician: AMI ORO APRN Date of Service: 01/29/25 Procedure(s): CA echo doppler complete Accession Number(s): [id number] cc: Mckayla Blas BLENDING COORDINATOR; AMI ORO APRN Patient Name: MITZI MACIAS MR#: [id number] : 1970 Exam Date: 01/29/2025 Ordering Doctor: [...] HERRERA Signed By: 01/29/251839 DD/ 39 TD/TT: Clerical Transcriber: [facility] Medical CenterRadiology Study observation (narrative)[facility] ECHO DOPPLER COMPLETEOrdered By: Radiologist Radiology on 72-30-3662EIVUJohn J. Pershing VA Medical Center Work Phone: Glucose (Bld) [Mass/Vol]on 52-33-4800Kejxzmh Blood, NXF192 mg/dLJohn J. Pershing VA Medical CenterLaboratory - Hematology and Cell countson 01-29-2025 HbA1c (Bld) [Mass fraction]8.4 %[facility] Medical CenterNo Panel Informationon 01-29-2025 Interpretation and review of laboratory resultsAbnormalLake Regional Health System HealthcareOffice Visiton 93-90-1611Spdtkf-up [id number] Mitzi Macias 1970 F Date Provider Department Center 01/06/2025 Mikaela-AMI ORO Wilfredo Rojas Family History Problem Relation Age of Onset Heart attack Paternal Grandmother Family Status - Relation Status Age at Mother Father Paternal Grandmother Level of Service:41270 HI OFFICE/OUTPATIENT ESTABLISHED MOD MDM 30 MIN Reason for Visit and Comments: Congestive Heart Failure [127] Hypertension [018271] Hyperlipidemia [182]NormalCrystal Clinic Orthopedic Center36on Regarding lab results from 10/08/2024: MD Mickie Merritt MA Lipids, ALT AST, and BMP are normal. HbA1c was not performed. Continue current management. LM on patient's VM.NormalCrystal Clinic Orthopedic CenterGlucose (Bld) [Mass/Vol]Ordered By: Mica Sauceda on 61-90-5814Jcqtben Blood, POC97 mg/dLNOIL HealthcareLaboratory - Hematology and Cell countson 82-04-8788ViE5t (Bld) [Mass fraction]7.4 %NOMS HealthcareNo Panel InformationOrdered By: Mica Sauceda on 23-44-1293KFVH HealthcareTBH UA (CLEAN/CATCH) MICROSCOPIC IF INDICATEon 55-85-2453VOZGUGUAL URINENegativeNEGATIVENOMS HealthcareBLOOD URINENegative NEGATIVENOMS HealthcareClarity (U)CLEARCLEARNOMS HealthcareColor (U)YELLOWYELLOW NOMS HealthcareGLUCOSE URINE UANegativeNEGATIVE mg/dLNOMS Healthcare Interpretation and review of laboratory resultsAbnormalNOMS HealthcareKetones Ql (U)NegativeNEGATIVE mg/dLNOMS HealthcareLeukocyte esterase Test strip Ql (U) NegativeNEGATIVENOMS HealthcareNITRITE URINENegativeNEGATIVENOMS HealthcarepH (U)5.5 [pH]5.0 - 9.0NOMS HealthcareProtein (U) [Mass/Vol]30 mg/dLAbnormal NEG/TRACENOMS HealthcareSPECIFIC GRAVITY URINE>=1.231Xerttlsi7.005 - 1.025NOMS HealthcareURINE MICROSCOPIC INDICATEDYESNOMS HealthcareUROBILINOGEN URINE1.0 EU/dL0.2 - 1.0 EU/dLNOMS HealthcareCLINISYNPAUL A. DE[facility] STATE [facility] HealthcareALL CBC WITH AUTO DIFFon 64-70-9585RQLYKUSPF ABSOLUTE AUTO0.1NOMS HealthcareBasophils/100 WBC (Bld)0.5 %0.2 - 2.0 %NOMS HealthcareEosinophils/100 WBC (Bld)1.9 %0.9 - 7.0 % NOMS HealthcareErythrocyte distribution width (RBC) [Ratio]14.6 %11.0 - 15.0 % NOMS HealthcareHematocrit (Bld) [Volume fraction]50.9 %High36.0 - 48.0 %NOMS HealthcareHemoglobin (Bld) [Mass/Vol]16.1 g/rFUnjp97.0 - 16.0 g/dLNOIL HealthcareIMMATURE GRANULOCYTES ABS AUTO0.04HighNOIL HealthcareImmature granulocytes/100 WBC (Bld)0.3 %0.0 - 0.5 %NOMS HealthcareInterpretation and review of laboratory resultsAbnormalNOIL HealthcareLYMPHOCYTES ABSOLUTE AUTO3.2 NOMS HealthcareLymphocytes/100 WBC (Bld)25.1 %20.5 - 60.0 %NOMSelect Specialty HospitalMCH (RBC) [Entitic mass]29.2 pg26.7 - 34.[address] John'sMCHC (RBC) [Mass/Vol] 31.6 g/dL29.9 - 35.2 g/dLJohn J. Pershing VA Medical CenterMCV (RBC) [Entitic vol]92.2 fL81.0 - 99.0 fLNOIL HealthcareMONOCYTES ABSOLUTE AUTO0.7NOIL HealthcareMonocytes/100 WBC (Bld)5.2 %1.7 - 12.0 %NOMS HealthcareNEUTROPHILS ABSOLUTE AUTO8.6HighNOIL HealthcareNeutrophils/100 WBC (Bld)67 %43.0 - 75.0 %NOMS HealthcarePlatelet mean volume (Bld) [Entitic vol]12.8 fL9.5 - 13.[address] John'sTBH EO #0.2NOMS HealthcareTBH [id number] HealthcareTB RBC5.52HighNOMS HealthcareTBH WBC12.8 HighNOIL HealthcareCLINISYNCNROGER MILLS [facility]IAL [facility] HealthcareOffice Visiton 82-41-4224Ulgbfz-up [id number] Mitzi Macias 1970 F Date Provider Department Center 08/08/2024 [id number], SAMTROY [facility] Family History Problem Relation Age of Onset Heart attack Paternal Grandmother Family Status - Relation Status Age at Paternal Grandmother Level of Service:10383 HI OFFICE/OUTPATIENT ESTABLISHED MOD MDM 30 MIN Reason for Visit and Comments: Congestive Heart Failure [127] - Denies chest pain, SOB, and palpitations. Hypertension [784053] Hyperlipidemia [182] LVH [Other] Edema [[id number]] - Denies worsening edema. She sees wound care for RLE ulcer. She was seeing the vein specialists here in town but they are moving to [place] in a few weeks.[facility] HospitalProvider Letteron 95-96-2571Qwnybdqs LetterProvider Letter June 11, 2024 MITZ[address]AS [address] [place] [phone] : 1970 To Whom It May Concern, Please excuse above patient from work. Date of Illness: From: 06/11/24 8:30am To: 06/11/24 12:30pm Comments: _Brian Macias was with his for her doctor's appointment. Sincerely, Andra Forrester, Surgical SchedulerNormThe University of Toledo Medical CenterUrology Office/Clinic Noteon 75-75-4086Ialxhny Office/Clinic NoteUrology Office/Clinic Note Chief Complaint 18 mth HPI Staff 53 yo here 18 month f/u CT for adrenal mass. CT SCAN 05/12/24-[facility] Previous DX: adrenal mass, kidney stone, [...] Urology [address], [place] [address]- Additional Instructions: [address] AP [...] TIDAC potassium chloride 10 (more content not included)...Flower HospitalComment on above:Result Comment: Electronically Signed By: Elbert ARAUZ MD\.br\Date and Time Signed: 06/11/24 10:55 EST\.br\Electronically Co- Signed By: Maria Elena Negrete\.br\Date and Time Co-Signed: 06/11/24 10:53 EST Glucose (Bld) [Mass/Vol]Ordered By: Mica Sauceda on 08-43-7760Ptahlyy Blood, JKU220 mg/dLNOMS HealthcareLaboratory - Hematology and Cell countson 05-27-2024 HbA1c (Bld) [Mass fraction]9.2 %NOMS HealthcareNo Panel InformationOrdered By: Mica Sauceda on 18-01-6633MOBS HealthcareCT ABDOMEN PELVIS W CONon 05-12-2024 [place] [address] CT Scan Report Signed Patient: MITZI MACIAS MR#: [id number] : 1970 Acct:[id number] Age/Sex: 53 / F ADM Date: 05/12/24 Loc: CT Attending Dr: Gaviota MAYERS Ordering Physician: Gaviota Adames Date of Service: 05/12/24 Procedure(s): CT abdomen pelvis w con Accession Number(s): [id number] cc: Mckayla Blas NP [place] [address] Patient Name: MITZI MACIAS MRN: [id number] date: 1970 Sex: F Assigned Patient Location: CT Current Patient Location: Accession/Order Number: [id number] Exam Date: 05/12/2024 11:15 Report Date: 05/12/2024 14:16 At the request of: GVAIOTA ADAEMS Procedure: CT abdomen pelvis w con EXAM: [...] Signed By: 05/12/24 1419 DD/ 1416 TD/TT: Clerical Transcriber:SONNYHRadiology, Radiologist, - 05/12/2024 [place] [address] CT Scan Report Signed Patient: MITZI MACIAS MR#: [id number] : 1970 Acct:[id number] Age/Sex: 53 / F ADM Date: 05/12/24 Loc: CT Attending Dr: Gaviota MAYERS Ordering Physician: Gaviota Adames Date of Service: 05/12/24 Procedure(s): CT abdomen pelvis w con Accession Number(s): [id number] cc: Mckayla Blas NP [address] [place] [id number] Patient Name: MITZI MACIAS MRN: [id number] date: 1970 Sex: F Assigned Patient Location: CT Current Patient Location: Accession/Order Number: [id number] Exam Date: 05/12/2024 11:15 Report Date: 05/12/2024 [...] Signed By: 05/12/24 1419 DD/ 15 TD/TT: Clerical Transcriber: [facility] HOSPITALHenna HealthcareRadiology Study observation (narrative)[facility] CenterCT ABDOMEN PELVIS W CONOrdered By: Radiologist Radiology on 55-98-4834UGZLJohn J. Pershing VA Medical Center Work Phone: LUMBAR SPINE WO CONon 45-05-4003BcdCharles [place] [phone] Magnetic Resonance Report Signed Patient: MITZI MACIAS MR#: [id number] : 1970 Acct:[id number] Age/Sex: 53 / F ADM Date: 05/12/24 Loc: MRI Attending Dr: Angela Cochran NP Ordering Physician: Angela Cochran NP Date of Service: 05/12/24 Procedure(s): MR lumbar spine wo con Accession Number(s): [id number] cc: Mckayla Blas BLENDING COORDINATOR; Angela Cochran NP [address] [address] Patient Name: MITZI MACIAS MRN: [id number] date: 1970 Sex: F Assigned Patient Location: MRI Current Patient Location: CT Accession/Order Number: [id number] Exam Date: 05/12/2024 09:21 Report Date: 05/12/2024 [...] Signed By: 05/12/24 1443 DD/ 144 TD/TT: Clerical Transcriber:TBHRadiology, Radiologist, MD - 05/12/2024 [place] [address] Magnetic Resonance Report Signed Patient: MITZI MACIAS MR#: [id number] : 1970 Acct:[id number] Age/Sex: 53 / F ADM Date: 05/12/24 Loc: MRI Attending Dr: Angela Cochran NP Ordering Physician: Angela Cochran NP Date of Service: 05/12/24 Procedure(s): MR lumbar spine wo con Accession Number(s): [id number] cc: Mckayla Blas NP; Angela Cochran NP [facility] [place] [id number] Patient Name: MITZI MACIAS MRN: [id number] date: 1970 Sex: F Assigned Patient Location: MRI Current Patient Location: CT Accession/Order Number: [id number] Exam Date: 05/12/2024 09:21 Report Date: 05/12/2024 [...] M.D. Signed By: 05/12/241442 DD/ 40 TD/TT: Clerical Transcriber: CARLOS HealthcareRadiology Study observation (narrative)[facility] LUMBAR SPINE WO CONOrdered By: Radiologist Radiology on 51-84-0626RBXU [facility] Work Phone: [facility] CREATININEon 87-58-1878Isbupcjemb [Mass/Vol]0.92 mg/dL0.55 - 1.02 mg/dLNOMS HealthcareGFR/1.73 sq M.predicted CKD-EPI (S/P/Bld) [Vol rate/Area]>60>=60 mL/min/1.73m 2NOMS HealthcareTBH EGFR-NON AF CAPE VERDEAN>60 >=60 mL/min/1.73m 2NOMS HealthcareCLINISYNCNOMS HealthcareSEGMENTAL BLOOD PRESSUREon 93-11-7769Inq[place] [address] Vein Report Signed Patient: MITZI MACIAS MR#: [id number] : 1970 Acct:[id number] Age/Sex: 53 / F ADM Date: 04/24/24 Loc: Attending Dr: Comfort Pretty Ordering Physician: Comfort Pretty Date of Service: 04/24/24 Procedure(s): SEGMENTAL PRESSURES Accession Number(s): [id number] cc: Mckayla Blas BLENDING COORDINATOR; Comfort Pretty [place] [address] Patient Name: MITZI MACIAS MRN: [id number] date: 1970 Sex: F Assigned Patient Location: Current Patient Location: Accession/Order Number: [id number] Exam Date: 04/24/2024 10:25 Report Date: 04/24/2024 11:20 At the request of: COMFORT PRETTY Procedure: SEGMENTAL PRESSURES EXAM: SEGMENTAL PRESSURES HISTORY: R09.89 COMPARISON: None. FINDINGS: Segmental pressures presented as follows (right, left) in mmHg. Brachial: 169, 166 Upper thigh: Not obtained Lower thigh: 129, 119 Calf: 124, 106 DPA: 108, 105 DIRECTOR CHILD: 100, 91 1st Toe: 124, 142 ISABELLE: [...] Signed By: 04/24/24 1123 DD/ 19 TD/TT: Clerical Transcriber:SONNYHRadiology, Radiologist, - 04/24/2024 [place] [address] Vein Report Signed Patient: MITZI MACIAS MR#: [id number] : 1970 Acct:[id number] Age/Sex: 53 / F ADM Date: 04/24/24 Loc: VC Attending Dr: Comfort Pretty Ordering Physician: Comfort Pretty Date of Service: 04/24/24 Procedure(s): VC SEGMENTAL PRESSURES Accession Number(s): [id number] cc: Mckayla Blas BLENDING COORDINATOR; Comfort Pretty [place] [address] Patient Name: MITZI MACIAS MRN: [facility]:[id number] date: 1970 Sex: F Assigned Patient Location: Current Patient Location: Accession/Order Number: [id number] Exam Date: 04/24/2024 10:25 Report Date: 04/24/2024 11:20 At the request of: COMFORT PRETTY Procedure: VC SEGMENTAL PRESSURES EXAM: VC SEGMENTAL PRESSURES HISTORY: R09.89 COMPARISON: None. FINDINGS: Segmental pressures presented as follows (right, left) in mmHg. Brachial: 169, 166 Upper thigh: Not obtained Lower thigh: 129, 119 Calf: 124, 106 DPA: 108, 105 DIRECTOR CHILD: 100, 91 1st Toe: 124, 142 ISABELLE: [...] Signed By: 04/24/24 1123 DD/ 1120 TD/TT: Clerical Transcriber: CARLOS HealthcareRadiology Study observation (narrative)[facility] HealthcareSEGMENTAL BLOOD PRESSUREOrdered By: Radiologist Radiology on 97-96-3598VFJB Healthcare Work Phone: mm TOMOSYNTHESIS SCREENING BIon 19-50-4338NsyFar [place] [address] Mammography Report Signed Patient: MITZI MACIAS MR#: [id number] : 1970 Acct:[id number] Age/Sex: 53 / F ADM Date: 12/13/23 Loc: MAMMO Attending Dr: Mckayla Blas NP Ordering Physician: Mckayla Blas NP Results: Date of Service: 12/13/23 Follow Up: Procedure(s): MM tomosynthesis screening BI Accession Number(s): [id number] cc: Mckayla Blas NP Patient Name: MITZI MACIAS MR#: [id number] : 1970 Exam Date: 12/13/2023 Ordering Doctor: SAYAD Blas CNP RADIOLOGY REPORT PROCEDURE: MM TOMOSYNTHESIS [...] unknown cancer at age 75. LOCATION: [facility] BREAST COMPOSITION: The breasts are [...] Signed By: 12/14/23 1122 DD/ 1121 TD/TT: Clerical Transcriber:TBHRadiology, Radiologist, MD - 12/14/2023 [place] [address] Mammography Report Signed Patient: MITZI MACIAS MR#: [id number] : 1970 Acct:[id number] Age/Sex: 53 / F ADM Date: 12/13/23 Loc: MAMMO Attending Dr: Mckayla Blas NP Ordering Physician: Mckayla Blas NP Results: Date of Service: 12/13/23 Follow Up: Procedure(s): MM tomosynthesis screening BI Accession Number(s): [id number] cc: Mckayla Blas NP Patient Name: MITZI MACIAS MR#: [id number] : 1970 Exam Date: 12/13/2023 Ordering Doctor: [...] unknown cancer at age 75. LOCATION: [facility] BREAST COMPOSITION: The breasts are [...] Signed By: 12/14/23 1122 DD/ 1121 TD/TT: Clerical Transcriber: [facility] CenterRadiology Study observation (narrative)[facility] TOMOSYNTHESIS SCREENING BIOrdered By: Radiologist Radiology on 85-10-5454LWBCJohn J. Pershing VA [facility] Center Work Phone: bLOOD CULTURE 1on 93-30-5590KUZNB CULTURE 1 Blood Culture 1 NG5D NO GROWTH AT 5 DAYS.^NO GROWTH AT 5 DAYS. [facility] Medical CenterBLOOD CULTURE 2on 12-32-1220XIPYC CULTURE 2 Blood Culture 2 NG5D NO GROWTH AT 5 DAYS.^NO GROWTH AT 5 DAYS. [facility] CenterNo Panel Informationon 06-26-9735GNXWJYBVOBDNF HealthcareECG 12-LEADon 01-18-8377Jww[place] [address] Electrocardiograph Report Signed Patient: MITZI MACIAS MR#: [id number] : 1970 Acct:[id number] Age/Sex: 53 / F ADM Date: 08/31/23 Loc: [place] 214-[address]: Jacqueline eBcerra D.O. 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 Signed By: 09/02/23 0732 DD/ 180 TD/TT: Clerical Transcriber:TBHRadiology, Radiologist, - 09/02/2023 [place] [address] Electrocardiograph Report Signed Patient: MITZI MACIAS MR#: [id number] : 1970 Acct:[id number] Age/Sex: 53 / F ADM Date: 08/31/23 Loc: MS 214-[address]: Jacqueline Becerra D.O. 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 Signed By: 09/02/23 0732 DD/ 1808 TD/TT: Clerical Transcriber: CARLOS [facility] 12-LEADOrdered By: Radiologist Radiology on 56-49-0131HQAC [employer] Work Phone: EC 12-LEADon 15-87-2125Hfltqbxxs Study observation (narrative)CARLOS [facility] AUTO DIFFon 26-19-2261KRPK #0.0 103/ulNormal 0.0-0.1The City HospitalComment on above:Performed By: #### CBC #### [facility] [address] [place] [address] Dr. Ashlie HillsBasophils/100 WBC (Bld)0.1 %Critically low0.2-2.0The City HospitalComment on above:Performed By: #### CBC #### [facility] [address] [place] [address] Dr. Ashlie Mcintosh #0.0 103/ulNormal0.0-0.7The City HospitalComment on above: Performed By: #### CBC #### [facility] [address] [place] [address] Dr. Ashlie Grahamosinophils/100 WBC (Bld)0.0 %Critically low0.9-7.0The City HospitalComment on above:Performed By: #### CBC #### [facility] [address] [place] [address] Dr. Ashlie Grahamrythrocyte distribution width (RBC) [Ratio]14.9 %Pycged90.0-15.0 The City HospitalComment on above:Performed By: #### CBC #### [facility] [address] [place] [address] Dr. Ashlie HillsHematocrit (Bld) [Volume fraction]46.2 %Ccqant04.0-48.0[facility] HospitalComment on above:Performed By: #### CBC #### [facility] [address] [place] [address] Dr. Ashlie HillsHemoglobin (Bld) [Mass/Vol]14.7 g/kFPopbyp44.0-16.0The City HospitalComment on above:Performed By: #### CBC #### [facility] [address] [place] [address] Dr. Ashlie Hunter #0.06 10e3/ulCritically high0.00-0.03[facility] Comment on above:Performed By: #### CBC #### [facility] [address] [place] [address] Dr. Ashlie Hunter %0.4 %Normal0.0-0.5The City HospitalComment on above: Performed By: #### CBC #### [facility] [address] [place] [address] Dr. Ashlie Swenson #1.3 103/ulNormal1.2-3.8The City HospitalComment on above:Performed By: #### CBC #### [facility] [address] [place] [address] Dr. Ashlie Dsouzahocytes/100 WBC (Bld)9.4 %Critically low20.5-60.0The City HospitalComment on above:Performed By: #### CBC #### [facility] [address] [place] [address] Dr. Ashlie GhoshUAL DIFF REQNONormalThe City HospitalComment on above: Performed By: #### CBC #### [facility] [address] [place] [address] Dr. Ashlie Mckeon (RBC) [Entitic mass]28.4 ldWkenri06.7-34.0The City HospitalComment on above:Performed By: #### CBC #### [facility] [address] [place] [address] Dr. Ashlie Mckeon (RBC) [Mass/Vol]31.8 g/nCFjbofz19.9-35.2The City HospitalComment on above:Performed By: #### CBC #### [facility] [address] [place] [address] Dr. Ashlie MckeonV (RBC) [Entitic vol]89.4 dGJvvxyb94.0-99.0The City HospitalComment on above:Performed By: #### CBC #### [facility] [address] [place] [address] Dr. Ashlie Killian #0.5 103/ulNormal0.3-0.8The City HospitalComment on above:Performed By: #### CBC #### [facility] [address] [place] [address] Dr. Ashlie Palominoocytes/100 WBC (Bld)3.4 %Normal1.7-12.0[facility] Comment on above:Performed By: #### CBC #### [facility] [address] [place] [address] Dr. Ashlie Olsen #11.8 103/ulCritically high1.4-6.5[facility] Comment on above:Performed By: #### CBC #### [facility] [address] [place] [address] Dr. Ashlie Quiñonesutrophils/100 WBC (Bld)86.7 %Critically high43.0-75.0The City HospitalComment on above:Performed By: #### CBC #### [facility] [address] [place] [address] Dr. Ashlie Lantigualet mean volume (Bld) [Entitic vol]12.6 fLNormal9.5-13.5The City HospitalComment on above:Performed By: #### CBC #### [facility] [address] [place] [address] Dr. Ashlie HillsPLT133 103/ulCritically vpq495-265Ois City HospitalComment on above:Performed By: #### CBC #### [facility] [address] [place] [address] Dr. Ashlie HillsRBC5.17 106/ulNormal4.20-5.40The City HospitalComment on above:Performed By: #### CBC #### [facility] [address] [address] [address] Ashlie HillsWBC13.6 103/ulCritically high4.0-11.0The City HospitalComment on above:Performed By: #### CBC #### [facility] [address] [place] [address] [address] Ashlie HillsMAGNESIUMon 07-09-1632Jnbsawqnb [Mass/Vol]2.2 mg/dLNormal1.8-2.4 The City HospitalComment on above:Performed By: #### INFLUAB #### [facility] [address] [place] [address] [address] Ashlie HillsPOINT OF CARE GLUCOSEon 50-98-3115Bslpvuu [Mass/Vol]340 mg/dL Critically ichl32-624Izu City HospitalComment on above:Performed By: #### POCGLUC #### [facility] [address] [place] [address] Dr. Ashlie HillsGlucose [Mass/Vol]276 mg/dLCritically zqam31-949Vjd City HospitalComment on above:Performed By: #### CBC #### [facility] [address] [place] [address] [address] Ashlie HillsGlucose [Mass/Vol]333 mg/dLCritically jymf09-545Zjh City HospitalComment on above:Performed By: #### CBC #### [facility] [address] [place] [address] Dr. Ashlie HillsPROF CHEM 8 (BAS METB)on 51-61-5562Nrkfn gap [Moles/Vol]10.9 mmol/LNormalThe City HospitalComment on above:Performed By: #### INFLUAB #### [facility] [address] [place] [address] Dr. Ashlie HillsCalcium [Mass/Vol]9.3 mg/dLNormal8.5-10.1[facility] Comment on above:Performed By: #### INFLUAB #### [facility] [address] [place] [address] [address] Ashlie HillsChloride [Moles/Vol]103 mmol/MWpnkyd15-046Ued [facility] Comment on above:Performed By: #### INFLUAB #### [facility] [address] [place] [address] [address] Ashlie HillsCO2 [Moles/Vol]31.2 mmol/ZOqhprd45.0-32.0[facility] Comment on above:Performed By: #### INFLUAB #### [facility] [address] [place] [address] [address] Ashlie HillsCreatinine [Mass/Vol]0.96 mg/dLNormal0.55-1.02[facility] HospitalComment on above:Performed By: #### INFLUAB #### [facility] [address] [place] [address] [address] Ashlie GrahamGFR-AF CAPE VERDEAN>60Normal>=60The City HospitalComment on above:Performed By: #### INFLUAB #### [facility] [address] [place] [address] [address] Ashlie GrahamGFR-NON AF CAPE VERDEAN>60Normal>=60The City HospitalComment on above:Performed By: #### INFLUAB #### [facility] [address] [place] [address] [address] Ashlie HillsGlucose [Mass/Vol]288 mg/dLCritically bmoi09-779Qeo City HospitalComment on above:Performed By: #### INFLUAB #### [facility] [address] [place] [address] [address] Ashlie HillsPotassium [Moles/Vol]5.1 mmol/LNormal3.5-5.1[facility] Comment on above:Performed By: #### INFLUAB #### [facility] [address] [place] [address] [address] Ashlie HillsSodium [Moles/Vol]140 mmol/AVldptp147-735Qnq [facility] Comment on above:Performed By: #### INFLUAB #### [facility] [address] [place] [address] [address] Ashlie HillsUrea nitrogen [Mass/Vol]30.0 mg/dLCritically high7.0-18.0The Wilfredo HospitalComment on above:Performed By: #### INFLUAB #### [facility] [address] [place] [address] Dr. Ashlie HillsUrea nitrogen/Creatinine [Mass ratio]31.2 mg/mgNoalThGuernsey Memorial HospitalComment on above:Performed By: #### INFLUAB #### [facility] [address] [place] [address] Dr. Ashlie VernonC AUTO DIFFon 28-80-5352YMNK #0.0 103/ulNormal0.0-0.1The [facility] Hospitalment on above:Performed By: #### CBC #### [facility] [address] [place] [address] Dr. Ashlie HillsBasophils/100 WBC (Bld)0.4 %Normal0.2-2.0[facility] on above:Performed By: #### CBC #### [facility] [address] [place] [address] Dr. Ashlie Mcintosh #0.0 103/ulNormal0.0-0.7The City HospitalComment on above: Performed By: #### CBC #### [facility] [address] [place] [address] Dr. Ashlie Grahamosinophils/100 WBC (Bld)0.0 %Critically low0.9-7.0[facility] Hospitalment on above:Performed By: #### CBC #### [facility] [address] [place] [address] Dr. Ashlie Grahamrythrocyte distribution width (RBC) [Ratio]14.8 %Lnztgq07.0-15.0 [facility] Hospitalment on above:Performed By: #### CBC #### [facility] [address] [place] [address] Dr. Ashlie HillsHematocrit (Bld) [Volume fraction]49.9 %Critically high36.0-48.0 [facility] HospitalComment on above:Performed By: #### CBC #### [facility] [address] [place] [address] Dr. Ashlie HillsHemoglobin (Bld) [Mass/Vol]15.7 g/tFYrmipl05.0-16.0The City HospitalComment on above:Performed By: #### CBC #### [facility] [address] [place] [address] Dr. Ashlie Hunter #0.04 10e3/ulCritically high0.00-0.03[facility] Comment on above:Performed By: #### CBC #### [facility] [address] [place] [address] Dr. Ashlie Hunter %0.5 %Normal0.0-0.5The City HospitalComment on above: Performed By: #### CBC #### [facility] [address] [place] [address] Dr. Ashlie Swenson #1.1 103/ulCritically low1.2-3.8[facility] Comment on above:Performed By: #### CBC #### [facility] [address] [place] [address] Dr. Ashlie Dsouzahocytes/100 WBC (Bld)12.7 %Critically low20.5-60.0The City HospitalComment on above:Performed By: #### CBC #### [facility] [address] [place] [address] Dr. Ashlie GhoshUAL DIFF REQNONormalThe City HospitalComment on above: Performed By: #### CBC #### [facility] [address] [place] [address] Dr. Ashlie Mckeon (RBC) [Entitic mass]28.1 ycWylkam16.7-34.0The City HospitalComment on above:Performed By: #### CBC #### [facility] [address] [place] [address] Dr. Ashlie Mckeon (RBC) [Mass/Vol]31.5 g/wWEijxdx09.9-35.2The City HospitalComment on above:Performed By: #### CBC #### [facility] [address] [place] [address] Dr. Ashlie MckeonV (RBC) [Entitic vol]89.3 mWNfimgr43.0-99.0The City HospitalComment on above:Performed By: #### CBC #### [facility] [address] [place] [address] [address] Ashlie Killian #0.1 103/ulCritically low0.3-0.8The City HospitalComment on above:Performed By: #### CBC #### [facility] [address] [place] [address] [address] Ashlie Palominoocytes/100 WBC (Bld)1.3 %Critically low1.7-12.0The City HospitalComment on above:Performed By: #### CBC #### [facility] [address] [place] [address] Dr. Ashlie Olsen #7.2 103/ulCritically high1.4-6.5[facility] Comment on above:Performed By: #### CBC #### [facility] [address] [place] [address] Dr. Ashlie Quiñonesutrophils/100 WBC (Bld)85.1 %Critically high43.0-75.0The City HospitalComment on above:Performed By: #### CBC #### [facility] [address] [place] [address] Dr. Ashlie Lantigualet mean volume (Bld) [Entitic vol]12.2 fLNormal9.5-13.5The City HospitalComment on above:Performed By: #### CBC #### [facility] [address] [place] [address] Dr. Ashlie HillsPLT116 103/ulCritically fez101-903Chr City HospitalComment on above:Performed By: #### CBC #### [facility] [address] [place] [address] Dr. Ashlie HillsRBC5.59 106/ulCritically high4.20-5.40[facility] Comment on above:Performed By: #### CBC #### [facility] [address] [place] [address] [address] [address] Ashlie HillsWBC8.5 103/ulNormal4.0-11.0The City HospitalComment on above: Performed By: #### CBC #### [facility] [id number] Ashlie Harrison CHEST WO W CONon 23-31-7416SNH CHEST WO W CONEXAMINATION: CTA CHEST WO [...] authenticated by: HATTIE GOFF Date: 2022-12-05 01:52NormalThe City HospitalMAGNESIUMon 90-40-8778Inykhbqqr [Mass/Vol]2.1 mg/dLNormal 1.8-2.4The City HospitalComment on above:Performed By: #### POCGLUC #### [facility] [address] [address] [address] Ashlie HillsPOINT OF CARE GLUCOSEon 38-37-4788Aygoxfd [Mass/Vol]293 mg/dL Critically exqh08-728Kdu City HospitalComment on above:Performed By: #### POCGLUC #### [facility] [address] [address] [address] Ashlie HillsGlucose [Mass/Vol]269 mg/dLCritically cezn61-373Srt City HospitalComment on above:Performed By: #### POCGLUC #### [facility] [address] [address] [address] Ashlie HillsGlucose [Mass/Vol]223 mg/dLCritically nyuz36-901Gui City HospitalComment on above:Performed By: #### CVDAGS #### [facility] [address] [place] [address] Dr. Ashlie HillsPROF CHEM 8 (BAS METB)on 07-29-2383Futlf gap [Moles/Vol]11.6 mmol/LNormalThe City HospitalComment on above:Performed By: #### POCGLUC #### [facility] [address] [address] [address] Ashlie HillsCalcium [Mass/Vol]9.2 mg/dLNormal8.5-10.1[facility] Comment on above:Performed By: #### POCGLUC #### [facility] [address] [address] [address] Ashlie HillsChloride [Moles/Vol]102 mmol/UWvjjak60-058[facility] Comment on above:Performed By: #### POCGLUC #### [facility] [address] [address] [address] Ashlie HillsCO2 [Moles/Vol]28.7 mmol/RTikoid00.0-32.0[facility] Comment on above:Performed By: #### POCGLUC #### [facility] [address] [place] [address] Dr. Ashlie HillsCreatinine [Mass/Vol]1.04 mg/dLCritically high0.55-1.02The City HospitalComment on above:Performed By: #### POCGLUC #### [facility] [address] [address] [address] Ashlie GrahamGFR-AF CAPE VERDEAN>60Normal>=60The City HospitalComment on above:Performed By: #### POCGLUC #### [facility] [address] [address] [address] Ashlie GrahamGFR-NON AF YPTZJPCE86 mL/min/1.54f2Zwdipuozet low>=60The City HospitalComment on above:Performed By: #### POCGLUC #### [facility] [address] [address] [address] Ashlie HillsGlucose [Mass/Vol]231 mg/dLCritically gcor52-000[facility] on above:Performed By: #### POCGLUC #### [facility] [address] [address] [address] Ashlie HillsPotassium [Moles/Vol]4.3 mmol/LNormal3.5-5.1[facility] Comment on above:Performed By: #### POCGLUC #### [facility] [address] [address] [address] Ashlie HillsSodium [Moles/Vol]138 mmol/CPpmfqw889-275Z[facility] Comment on above:Performed By: #### POCGLUC #### [facility] [address] [address] [address] Ashlie HillsUrea nitrogen [Mass/Vol]17.0 mg/dLNormal7.0-18.0[facility] on above:Performed By: #### POCGLUC #### [facility] [address] [address] [address] Ashlie HillsUrea nitrogen/Creatinine [Mass ratio]16.3 mg/mgNormalThe City HospitalComment on above:Performed By: #### POCGLUC #### [facility] [address] [address] [address] Ashlie HillsRESPIRATORY PANEL PLUSon 17-14-0065JdtjqzzaowBih detectedNormal NOT DETECTEDThe City HospitalComment on above:Performed By: #### CVDAGS #### [facility] [address] [address] [address] Ashlie Gandhi ParapertusisNot detectedNormalNOT DETECTEDThe City HospitalComment on above:Performed By: #### CVDAGS #### [facility] [address] [address] [address] Ashlie Gandhi PertussisNot detectedNormalNOT DETECTEDThe [facility] Comment on above:Performed By: #### CVDAGS #### [facility] [address] [address] [address] Ashlie HillsChlamydia PneumoniaeNot detectedNormalNOT DETECTEDThe City HospitalComment on above:Performed By: #### CVDAGS #### [facility] [address] [address] [address] Ashlie HillsCoronavirus 229ENot detectedNormalNOT DETECTEDThe City HospitalComment on above:Performed By: #### CVDAGS #### [facility] [address] [address] [address] Ashlie HillsCoronavirus TUY0Cja detectedNormalNOT DETECTEDThe City HospitalComment on above:Performed By: #### CVDAGS #### [facility] [address] [address] [address] Dailey ChangCoronavirus HN32Vco detectedNormalNOT DETECTEDThe [facility] HospitalCominsight [facility] hospital on above:Performed By: #### CVDAGS #### [facility] [address] [address] [address] Ashlie HillsCoronavirus RH80Wis detectedNormalNOT DETECTEDThe [facility] HospitalCominsight [facility] hospital on above:Performed By: #### CVDAGS #### [facility] [address] [address] [address] Ashlie Lockhart A H1Not detectedNormalNOT DETECTEDThe [facility] Comment on above:Performed By: #### CVDAGS #### [facility] [address] [address] [address] Ashlie Centeno H1 2009Not detectedNormalNOT DETECTEDThe City HospitalComment on above:Performed By: #### CVDAGS #### [facility] [address] [address] [address] Ashlie Centeno H3Not detectedNormalNOT DETECTEDThe [facility] Comment on above:Performed By: #### CVDAGS #### [facility] [address] [address] [address] Ashlie Lockhart BNot detectedNormalNOT DETECTEDThe [facility] Comment on above:Performed By: #### CVDAGS #### [facility] [address] [address] [address] Ashlie ChávezapneumovirusNot detectedNormalNOT DETECTEDThe City HospitalCominsight surgical hospital on above:Performed By: #### CVDAGS #### [facility] [address] [address] [address] Ashlie Jimenez. PneumoniaeNot detectedNormalNOT DETECTEDThe City HospitalComment on above:Performed By: #### CVDAGS #### [facility] [address] [address] [address] Ashlie Mendieta 1Not detectedNormalNOT DETECTEDThe [facility] HospitalCominsight surgical hospital on above:Performed By: #### CVDAGS #### [facility] [address] [address] [address] Ashlie Mendieta 2Not detectedNormalNOT DETECTEDThe City HospitalComment on above:Performed By: #### CVDAGS #### [facility] [address] [address] [address] Aslhie Mendieta 3DetectedAbnormalNOT DETECTEDThe [facility] Comment on above:Performed By: #### CVDAGS #### [facility] [address] [address] [address] Ashlie Mendieta 4Not detectedNormalNOT DETECTEDThe [facility] HospitalCominsight surgical hospital on above:Performed By: #### CVDAGS #### [facility] [address] [place] [address] Dr. Ashlie HillsRhino/EnterovirusNot detectedNormalNOT DETECTEDThe City HospitalComment on above:Performed By: #### CVDAGS #### [facility] [address] [place] [address] Dr. Ashlie Gallagher Header 1RESPIRATORY PANEL: VIRUSESChildren[facility] Hospital for Rehabilitation Comment on above:Performed By: #### CVDAGS #### [facility] [address] [address] [address] Ashlie Gallagher Header 2RESPIRATORY PANEL: BACTERIAChildren's Hospital for RehabilitationComment on above:Performed By: #### CVDAGS #### [facility] [address] [place] [address] Dr. Ashlie GivensNot detectedNormalNOT DETECTEDThe City HospitalComment on above:Performed By: #### CVDAGS #### [facility] [address] [place] [address] Dr. Ahslie Finney-CoV-2 (COVID-19) RNA MADDY+probe Ql (Unsp spec)Not detected NormalNOT DETECTEDThe City HospitalComment on above:Performed By: #### CVDAGS #### [facility] [address] [place] [address] Dr. Ashlie HillsXR CHEST 1 Von [id number] CHEST 1 VEXAMINATION: XR CHEST 1 V HISTORY: Shortness of breath COMPARISON: Chest x-ray 08/09/2021 TECHNIQUE: Portable chest FINDINGS: The lung parenchyma is free of consolidation or infiltrate. No pneumothorax or pleural effusion. The cardiac, mediastinal and hilar contours are normal. The visualized osseous structures exhibit no gross abnormality. IMPRESSION: No acute cardiopulmonary abnormality. Electronically authenticated by: MARYANNE POWER Date: 2022-12-04 22:23[facility] Hospital for RehabilitationBLOOD GASES BTYon MODEROOBarberton Citizens HospitalComment on above:Performed By: #### CBC #### [facility] [address] [place] [address] Dr. Ashlie Duran TESTPositiveKeenan Private Hospitalment on above: Performed By: #### CBC #### [facility] [address] [address] [address] Ashlie Crenshaw excess Calc (Bld) [Moles/Vol]5.4 mmol/LCritically high -2.0-2.0[facility] on above:Performed By: #### CBC #### [facility] [address] [address] [address] Ashlie SkyP Licking Memorial HospitalCominsight surgical hospital on above: Performed By: #### CBC #### [facility] [address] [address] [address] Ashlie HillsCPSalem Regional [facility] on above:Performed By: #### CBC #### [facility] [address] [address] [address] Ashlie HillsYyvesZFL6NykzlxIes43 White StreetCominsight surgical hospital on above:Performed By: #### CBC #### [facility] [address] [address] [address] Ashlie HillsHCO3 (Bld) [Moles/Vol]30.8 mmol/LCritically high22.0-26.0[facility] on above:Performed By: #### CBC #### [facility] [address] [address] [address] Ashlie HillsLPMNormalThe City HospitalCominsight surgical hospital on above:Performed By: #### CBC #### [facility] [address] [address] [address] Ashlie HackettUTE VOLUMEChildren's Hospital for RehabilitationCominsight surgical hospital on above: Performed By: #### CBC #### [facility] [address] [address] [address] Ashlie HillsOxygen (Bld) [Partial pressure]46.3 mm[Hg]Critically low 80.0-100.0[facility] on above:Performed By: #### CBC #### [facility] [address] [place] [address] Dr. Yilan ChangOxygen saturation in Blood83.9 %Critically low95.0-100.0The City HospitalComment on above:Performed By: #### CBC #### [facility] [address] [address] [address] Ashlie HillsPCO254.2 mmHgCritically high35.0-45.0[facility] on above:Performed By: #### CBC #### [facility] [address] [address] [address] Ashlie HillsProMedica Defiance Regional HospitalCominsight surgical hospital on above:Performed By: #### CBC #### [facility] [address] [address] [address] Ashlie Knapp (Bld)7.363 [pH]Normal7.350-7.450[facility] on above:Performed By: #### CBC #### [facility] [address] [address] [address] Ashlie VerasUniversity Hospitals Parma Medical CenterCominsight surgical hospital on above:Performed By: #### CBC #### [facility] [address] [address] [address] [facility] HillsW[facility] on above:Performed By: #### CBC #### [facility] [address] [place] [address] Dr. Ashlie Avendano [facility] HospitalComins[facility] surgical hospital on above: Performed By: #### CBC #### [facility] [address] [place] [address] Dr. Ashlie GoldUniversity Hospitals Parma Medical CenterCominsight surgical hospital on above:Performed By: #### CBC #### [facility] [address] [address] [address] Ashlie HillsKettering Health Washington TownshipCominsight surgical hospital on above:Performed By: #### CBC #### [facility] [address] [place] [address] Dr. Ashlie HillsMercy Health Springfield Regional Medical CenterCominsight surgical hospital on above:Performed By: #### CBC #### [facility] [address] [address] [address] Ashlie Perry 60-29-4425Mzflgbifwys peptide B (Bld) [Mass/Vol]76.0 pg/mL Normal<=900.0The City HospitalComment on above:Performed By: #### POCGLUC #### [facility] [address] [address] [address] Ashlie Chinchilla AUTO DIFFon [id number] #0.1 103/ulNormal0.0-0.1The City HospitalComment on above:Performed By: #### CBC #### [facility] [address] [address] [address] Ashlie HillsBasophils/100 WBC (Bld)0.6 %Normal0.2-2.0[facility] Comment on above:Performed By: #### CBC #### [facility] [address] [address] [address] Ashlie Mcintosh #0.2 103/ulNormal0.0-0.7The City HospitalComment on above: Performed By: #### CBC #### [facility] [address] [address] [address] Ashlie Grahamosinophils/100 WBC (Bld)1.9 %Normal0.9-7.0[facility] Comment on above:Performed By: #### CBC #### [facility] [address] [place] [address] Dr. Ashlie Grahamrythrocyte distribution width (RBC) [Ratio]15.0 %Nuaagd47.0-15.0 [facility] HospitalComment on above:Performed By: #### CBC #### [facility] [address] [address] [address] Ashlie HillsHematocrit (Bld) [Volume fraction]49.1 %Critically high36.0-48.0 [facility] HospitalComment on above:Performed By: #### CBC #### [facility] [address] [address] [address] Ashlie HillsHemoglobin (Bld) [Mass/Vol]15.6 g/bLRrnubl31.0-16.0The City HospitalComment on above:Performed By: #### CBC #### [facility] [address] [place] [address] Dr. Ashlie Hunter #0.02 10e3/ulNormal0.00-0.03The City HospitalComment on above:Performed By: #### CBC #### [facility] [address] [place] [address] Dr. Ashlie Hunter %0.2 %Normal0.0-0.5The City HospitalComment on above: Performed By: #### CBC #### [facility] [address] [place] [address] Dr. Ashlie Swenson #2.8 103/ulNormal1.2-3.8The City HospitalComment on above:Performed By: #### CBC #### [facility] [address] [place] [address] Dr. Ashlie Dsouzahocytes/100 WBC (Bld)29.9 %Zsoxqg12.5-60.0The City HospitalComment on above:Performed By: #### CBC #### [facility] [address] [place] [address] Dr. Ashlie Marie DIFF REQNONormalThe City HospitalComment on above: Performed By: #### CBC #### [facility] [address] [place] [address] Dr. Ashlie Mckeon (RBC) [Entitic mass]28.5 xtYsmhqz69.7-34.0The City HospitalComment on above:Performed By: #### CBC #### [facility] [address] [place] [address] Dr. Ashlie Mckeon (RBC) [Mass/Vol]31.8 g/uFPnkogo71.9-35.2The City HospitalComment on above:Performed By: #### CBC #### [facility] [address] [place] [address] Dr. Ashlie Mckeon (RBC) [Entitic vol]89.8 yQYlcjya05.0-99.0The City HospitalComment on above:Performed By: #### CBC #### [facility] [address] [place] [address] Dr. Ashlie Killian #1.0 103/ulCritically high0.3-0.8[facility] Comment on above:Performed By: #### CBC #### [facility] [address] [place] [address] Dr. Ashlie Palominoocytes/100 WBC (Bld)10.6 %Normal1.7-12.0[facility] Comment on above:Performed By: #### CBC #### [facility] [address] [place] [address] Dr. Ashlie Olsen #5.3 103/ulNormal1.4-6.5The City HospitalComment on above:Performed By: #### CBC #### [facility] [address] [place] [address] Dr. Ashlie Quiñonesutrophils/100 WBC (Bld)56.8 %Gziues68.0-75.0The City HospitalComment on above:Performed By: #### CBC #### [facility] [address] [place] [address] Dr. Ashlie Crump mean volume (Bld) [Entitic vol]12.5 fLNormal9.5-13.5The City HospitalComment on above:Performed By: #### CBC #### [facility] [address] [place] [address] Dr. Ashlie WhiteT109 103/ulCritically yik108-977Gjz City HospitalComment on above:Performed By: #### CBC #### [facility] [address] [place] [address] Dr. Ashlie PruettC5.47 106/ulCritically high4.20-5.40[facility] Comment on above:Performed By: #### CBC #### [facility] [address] [place] [address] Dr. Ashlie BhaktaBC9.4 103/ulNormal4.0-11.0The City HospitalComment on above: Performed By: #### CBC #### [facility] [address] [place] [address] Dr. Ashlie Jones 14(COMP METB)on 85-07-3962Eiopxxv [Mass/Vol]2.9 g/dL Critically low3.4-5.0The City HospitalComment on above:Performed By: #### CBC #### [facility] [address] [place] [address] Dr. Ashlie HillsAlbumin/Globulin [Mass ratio]0.6 {ratio}NormalThe City HospitalComment on above:Performed By: #### CBC #### [facility] [address] [place] [address] Dr. Ashlie Gonzalez [Catalytic activity/Vol]64 U/SAjdlss48-793Snf City HospitalComment on above:Performed By: #### CBC #### [facility] [address] [place] [address] Dr. Ashlie Chambers [Catalytic activity/Vol]16 U/PMydprl57-05Dhr City HospitalComment on above:Performed By: #### CBC #### [facility] [address] [place] [address] Dr. Ashlie Arce gap [Moles/Vol]9.6 mmol/LNormalThe City HospitalComment on above:Performed By: #### CBC #### [facility] [address] [place] [address] Dr. Ashlie Tiwari [Catalytic activity/Vol]16 U/OIpxbpf84-16Chz City HospitalComment on above:Performed By: #### CBC #### [facility] [address] [place] [address] Dr. Ashlie HillsBilirubin [Mass/Vol]0.5 mg/dLNormal0.2-1.0[facility] Comment on above:Performed By: #### CBC #### [facility] [address] [place] [address] Dr. Ashlie HillsCalcium [Mass/Vol]8.7 mg/dLNormal8.5-10.1[facility] Comment on above:Performed By: #### CBC #### [facility] [address] [address] [address] Ashlie HillsChloride [Moles/Vol]103 mmol/CKjtyae36-526Ebf [facility] Comment on above:Performed By: #### CBC #### [facility] [address] [address] [address] Ashlie HillsCO2 [Moles/Vol]30.7 mmol/YKbrbfk69.0-32.0[facility] Comment on above:Performed By: #### CBC #### [facility] [address] [address] [address] Ashlie HillsCreatinine [Mass/Vol]0.96 mg/dLNormal0.55-1.02The City HospitalComment on above:Performed By: #### CBC #### [facility] [address] [place] [address] Dr. Ashlie GrahamGFR-AF CAPE VERDEAN>60Normal>=60The City HospitalComment on above:Performed By: #### CBC #### [facility] [address] [address] [address] Ashlie Delaney-NON AF CAPE VERDEAN>60Normal>=60The City HospitalComment on above:Performed By: #### CBC #### [facility] [address] [address] [address] Ashlie HillsGlobulin (S) [Mass/Vol]4.7 g/dLNormalThe City HospitalComment on above:Performed By: #### CBC #### [facility] [address] [address] [address] Ashlie HillsGlucose [Mass/Vol]170 mg/dLCritically ovwf32-721Ggj City HospitalComment on above:Performed By: #### CBC #### [facility] [address] [address] [address] Ashlie HillsPotassium [Moles/Vol]4.3 mmol/LNormal3.5-5.1[facility] Comment on above:Performed By: #### CBC #### [facility] [address] [address] [address] Ashlie HillsProtein [Mass/Vol]7.6 g/dLNormal6.4-8.2[facility] Comment on above:Performed By: #### CBC #### [facility] [address] [address] [address] Ashlie HillsSodium [Moles/Vol]139 mmol/NElmpbp000-197Jdw [facility] Comment on above:Performed By: #### CBC #### [facility] [address] [place] [address] Dr. Ashlie HillsUrea nitrogen [Mass/Vol]16.0 mg/dLNormal7.0-18.0The City HospitalComment on above:Performed By: #### CBC #### [facility] [address] [place] [address] Dr. Ashlie HillsUrea nitrogen/Creatinine [Mass ratio]16.7 mg/mgNormalThe City HospitalComment on above:Performed By: #### CBC #### [facility] [address] [place] [address] Dr. Ashlie HillsSYMPTOMATIC COVID-19 ANTIGENon [id number] StatementSEE BELOW NormalThe City HospitalComment on above:Result Comment: This test has [...] is revoked sooner.Performed By: #### CVDAGS #### [facility] [address] [place] [address] Dr. Ashlie Finney-CoV-2 (COVID-19) RNA MADDY+probe Ql (Unsp spec)NegativeNormal NEGATIVEMercy Health Allen HospitalComment on above:Performed By: #### CVDAGS #### [facility] [address] [place] [address] Dr. Ashlie Alvarado, [facility] SENSITIVITYon [id number] pg/mLNormal 4.0-51.3The City HospitalComment on above:Result Comment: CUT-OFF POINTS HAVE BEEN ESTABLISHED BASED ON THE FOURTH UNIVERSAL DEFINITIONS OF MYOCARDIAL INFARCTION. THE UPPER REFERENCE LIMIT (URL) OF TROPONIN, DEFINED THE 99TH PERCENTILE OF cTnI DISTRIBUTION IN A REFERENCE POPULATION, HAS BEEN CONFIRMED THE DECISION THRESHOLD FOR NH DIAGNOSIS.Performed By: #### POCGLUC #### [facility] [address] [place] [address] Dr. Ashlie MarshallALBUMIN, RAND URon 89-14-2907aBGB65.8 mg/dLCritically high <=30.0The City HospitalComment on above:Performed By: #### CVDAGS #### [facility] [address] [place] [address] Dr. Ashlie Vaughn RANDOM W/MICROSCOPICon [id number] SEENNormalNONE SEENMercy Health Allen HospitalComment on above:Performed By: #### CVDAGS #### [facility] [address] [place] [address] Dr. Ashlie Galarzairubin Ql (U)NegativeNormalNEGATIVEThe [facility] Comment on above:Performed By: #### CVDAGS #### [facility] [address] [place] [address] Dr. Ashlie HillsCASTSEENAbnormalNONE SEENMercy Health Allen HospitalComment on above: Performed By: #### CVDAGS #### [facility] [address] [place] [address] Dr. Ashlie HillsClarity (U)CLEARNormalCLEARThe City HospitalComment on above: Performed By: #### CVDAGS #### [facility] [address] [address] [address] Ashlie Prescottlor (U)YELLOWNormalYELLOWMercy Health Allen HospitalComment on above: Performed By: #### CVDAGS #### [facility] [address] [address] [address] Ashlie HillsCrystals LM Nom (Urine sed)NONE SEENNormalNONE SEENMercy Health Allen HospitalCominsight surgical hospital on above:Performed By: #### CVDAGS #### [facility] [address] [address] [address] Dailey ChangEpithelial cells LM Ql (Urine sed)MODERATEAbnormalNONE SEEN /RARE The [facility] HospitalCominsight [facility] hospital on above:Performed By: #### CVDAGS #### [facility] [address] [place] [address] Dr. Ashlie HillsGlucose Ql (U)NegativeNormalNEGATIVEMercy Health Allen HospitalCominsight surgical hospital on above:Performed By: #### CVDAGS #### [facility] [address] [address] [address] Ashlie HillsHemoglobin Ql (U)TRACE-INTACTAbnormalNEGATIVEMercy Health Allen HospitalCominsight surgical hospital on above:Performed By: #### CVDAGS #### [facility] [address] [place] [address] Dr. Ashlie HillsKetones Ql (U)NegativeNormalNEGATIVEMercy Health Allen HospitalCominsight surgical hospital on above:Performed By: #### CVDAGS #### [facility] [address] [address] [address] Ashlie HillsLEUKOCYTESNegativeNormalNEGATIVEMercy Health Allen HospitalCominsight surgical hospital on above:Performed By: #### CVDAGS #### [facility] [address] [address] [address] Ashlie HillsMUCOUSNONE SEENNormalNONE SEENMercy Health Allen HospitalCominsight surgical hospital on above:Performed By: #### CVDAGS #### [facility] [address] [address] [address] Ashlie HillsNitrite Ql (U)NegativeNormalNEGATIVEThe City HospitalComment on above:Performed By: #### CVDAGS #### [facility] [address] [place] [address] Dr. Ashlie HillspH (U)5.0 [pH]Normal5-9The City HospitalComment on above: Performed By: #### CVDAGS #### [facility] [address] [place] [address] Dr. Ashlie WilderBsggvXWE8-1Jjbmgd5-0Gko City HospitalComment on above:Performed By: #### CVDAGS #### [facility] [address] [place] [address] Dr. Ashlie HillsSPEC GRAVITY1.534Oirnhrgr5.005-<=1.025[facility] Comment on above:Performed By: #### CVDAGS #### [facility] [address] [place] [address] Dr. Ashlie Vaughn EGTOBXC853 mg/dlAbnormalNEGATIVE/ TRACEThe [facility] Comment on above:Performed By: #### CVDAGS #### [facility] [address] [place] [address] Dr. Ashlie Metzbilinogen Qn (U)0.2 {Little'U}/dLNormal0.2 - 1.0The City HospitalComment on above:Performed By: #### CVDAGS #### [facility] [address] [place] [address] Dr. Ashlie HillsWBCNONE SEENNormalNONE SEENThe City HospitalComment on above: Performed By: #### CVDAGS #### [facility] [address] [place] [address] Dr. Ashlie Chinchilla AUTO DIFFon [id number] #0.0 103/ulNormal0.0-0.1The City HospitalComment on above:Performed By: #### CBC #### [facility] [address] [place] [address] Dr. Ashlie HillsBasophils/100 WBC (Bld)0.3 %Normal0.2-2.0[facility] Comment on above:Performed By: #### CBC #### [facility] [address] [place] [address] Dr. Ashlie Mcintosh #0.4 103/ulNormal0.0-0.7The City HospitalComment on above: Performed By: #### CBC #### [facility] [address] [place] [address] Dr. Ashlie Grahamosinophils/100 WBC (Bld)3.0 %Normal0.9-7.0[facility] Comment on above:Performed By: #### CBC #### [facility] [address] [place] [address] Dr. Ashlie Grahamrythrocyte distribution width (RBC) [Ratio]15.3 %Critically high 11.0-15.0[facility] HospitalComment on above:Performed By: #### CBC #### [facility] [address] [place] [address] Dr. Ashlie HillsHematocrit (Bld) [Volume fraction]52.4 %Critically high36.0-48.0 The City HospitalComment on above:Performed By: #### CBC #### [facility] [address] [place] [address] Dr. Ashlie HillsHemoglobin (Bld) [Mass/Vol]16.8 g/dLCritically high12.0-16.0[facility] HospitalComment on above:Performed By: #### CBC #### [facility] [address] [place] [address] Dr. Ashlie Hunter #0.04 10e3/ulCritically high0.00-0.03[facility] Comment on above:Performed By: #### CBC #### [facility] [address] [place] [address] Dr. Ashlie Hunter %0.3 %Normal0.0-0.5The City HospitalComment on above: Performed By: #### CBC #### [facility] [address] [place] [address] Dr. Ashlie Swenson #4.5 103/ulCritically high1.2-3.8[facility] Comment on above:Performed By: #### CBC #### [facility] [address] [place] [address] Dr. Ashlie Dsouzahocytes/100 WBC (Bld)33.2 %Ufugev07.5-60.0The City HospitalComment on above:Performed By: #### CBC #### [facility] [address] [place] [address] Dr. Ashlie Marie DIFF REQNONormalThe City HospitalComment on above: Performed By: #### CBC #### [facility] [address] [place] [address] Dr. Ashlie Granger (RBC) [Entitic mass]28.0 nyCrnwgw25.7-34.0The City HospitalComment on above:Performed By: #### CBC #### [facility] [address] [place] [address] Dr. Ashlie Mckeon (RBC) [Mass/Vol]32.1 g/rDVxqrqm56.9-35.2The City HospitalComment on above:Performed By: #### CBC #### [facility] [address] [place] [address] Dr. Ashlie Mckeon (RBC) [Entitic vol]87.3 bQJkdlkf31.0-99.0The City HospitalComment on above:Performed By: #### CBC #### [facility] [address] [place] [address] Dr. Ashlie Killian #0.8 103/ulNormal0.3-0.8The City HospitalComment on above:Performed By: #### CBC #### [facility] [address] [place] [address] Dr. Ashlie Palominoocytes/100 WBC (Bld)5.7 %Normal1.7-12.0[facility] Comment on above:Performed By: #### CBC #### [facility] [address] [place] [address] Dr. Ashlie Olsen #7.8 103/ulCritically high1.4-6.5[facility] Comment on above:Performed By: #### CBC #### [facility] [address] [address] [address] Ashlie Quiñonesutrophils/100 WBC (Bld)57.5 %Edmxed63.0-75.0[facility] HospitalComment on above:Performed By: #### CBC #### [facility] [address] [address] [address] Ashlie HillsPlatelet mean volume (Bld) [Entitic vol]12.0 fLNormal9.5-13.5The City HospitalComment on above:Performed By: #### CBC #### [facility] [address] [place] [address] Dr. Ashlie HillsPLT152 103/qqAobrta514-670OjnMercy Health Allen HospitalComment on above: Performed By: #### CBC #### [facility] [address] [place] [address] Dr. Ashlie HillsRBC6.00 106/ulCritically high4.20-5.40[facility] Comment on above:Performed By: #### CBC #### [facility] [address] [place] [address] Dr. Ashlie HillsWBC13.6 103/ulCritically high4.0-11.0[facility] HospitalComment on above:Performed By: #### CBC #### [facility] [address] [place] [address] Dr. Ashlie HillsLIPID PROFILEon [id number]-HDL RATIO NORMSEE [facility] HospitalComment on above:Result Comment: 3.3 - 4.4 LOW RISK 4.4 - 7.1 AVERAGE RISK 7.1 - 11.0 MODERATE RISK >11.0 HIGH RISKPerformed By: #### CBC #### [facility] [address] [place] [address] Dr. Ashlie HillsCholesterol [Mass/Vol]139 mg/dLNormal<=200[facility] Comment on above:Performed By: #### CBC #### [facility] [address] [address] [address] Ashlie HillsCholesterol in HDL [Mass/Vol]35 mg/dLCritically txv59-28PbsMercy Health Allen HospitalComment on above:Performed By: #### CBC #### [facility] [address] [address] [address] Ashlie HillsCholesterol in LDL [Mass/Vol]67.4 mg/dLNoGeorgetown Behavioral HospitalComment on above:Performed By: #### CBC #### [facility] [address] [address] [address] Ashlie Lopezesteroralia.total/Cholesterol in HDL [Mass ratio]4.0 {ratio} NormalMercy Health Allen HospitalComment on above:Performed By: #### CBC #### [facility] [address] [address] [address] Ashlie Potts NORMAL> or = 60 mg/dl - LOW CARDIOVASCULAR RISK <40 mg/dl - HIGH CARDIOVASCULAR RISKNoGeorgetown Behavioral HospitalComment on above:Performed By: #### CBC #### [facility] [address] [address] [address] Ashlie Desai CALC NORMALSEE BELOWChildren's Hospital for RehabilitationComment on above:Result Comment: <100 mg/dl OPTIMAL 100 - 129 mg/dl NEAR OR ABOVE OPTIMAL 130 - 159 mg/dl BORDERLINE HIGH 160 - 189 mg/dl HIGH >190 mg/dl VERY HIGH Performed By: #### CBC #### [facility] [address] [address] [address] Ashlie HillsTriglyceride [Mass/Vol]183 mg/dLCritically high<=150[facility] HospitalComment on above:Performed By: #### CBC #### [facility] [address] [address] [address] Ashlie UnderwoodLDL CALC36.6 mg/dLNoGeorgetown Behavioral HospitalComment on above: Performed By: #### CBC #### [facility] [address] [address] [address] Ashlie HillsMG MAMM SCREEN 3D ALEX CADon [id number] MAMM SCREEN 3D ALEX CAD Patient: MITZI MACIAS Exam Date: 11/22/2022 : 1970 Gender:F Ordering : SAYDA MCKAYLA CHETJuanis [employer]EL [employer] MECH[employer]IC Admission #: [id number] Family : Order #: [id number] CLICK HERE TO VIEW EXAM RADIOLOGY REPORT [...] unknown cancer at age 75. LOCATION: [facility] BREAST COMPOSITION: Almost entirely fatty. [...] by: Patricia Veloz M.D. on 11/22/2022 at 12:09[facility] for RehabilitationPROF 14(COMP METB)on [id number] [Mass/Vol]3.0 g/dLCritically low 3.4-5.0The [facility] Hospitalment on above:Performed By: #### CBC #### [facility] [address] [address] [address] Ashlie HillsAlbumin/Globulin [Mass ratio]0.6 {ratio}NormalThe City HospitalComment on above:Performed By: #### CBC #### [facility] [address] [address] [address] Ashlie Gonzalez [Catalytic activity/Vol]68 U/DUvgkbz01-135Qgf City HospitalComment on above:Performed By: #### CBC #### [facility] [address] [address] [address] Ashlie MoralesT [Catalytic activity/Vol]14 U/QVyaixa77-58Aeg City HospitalComment on above:Performed By: #### CBC #### [facility] [address] [address] [address] Ashlie Hassanon gap [Moles/Vol]12.1 mmol/LNormalThe [facility] Comment on above:Performed By: #### CBC #### [facility] [address] [address] [address] Ashlie HillsAST [Catalytic activity/Vol]9 U/LCritically qjc07-49Ehf City HospitalComment on above:Performed By: #### CBC #### [facility] [address] [address] [address] Ashlie HillsBilirubin [Mass/Vol]0.4 mg/dLNormal0.2-1.0[facility] Comment on above:Performed By: #### CBC #### [facility] [address] [address] [address] Ashlie HillsCalcium [Mass/Vol]9.0 mg/dLNormal8.5-10.1[facility] Comment on above:Performed By: #### CBC #### [facility] [address] [place] [address] Dr. Ashlie HillsChloride [Moles/Vol]105 mmol/CPgkvue28-575[facility] Comment on above:Performed By: #### CBC #### [facility] [address] [address] [address] Ashlie HillsCO2 [Moles/Vol]30.7 mmol/MDgldyg47.0-32.0[facility] Comment on above:Performed By: #### CBC #### [facility] [address] [address] [address] Ashlie Lopezatinine [Mass/Vol]0.77 mg/dLNormal0.55-1.02The [facility] HospitalComment on above:Performed By: #### CBC #### [facility] [address] [place] [address] Dr. Ashlie GrahamGFR-AF CAPE VERDEAN>60Normal>=60The City HospitalComment on above:Performed By: #### CBC #### [facility] [address] [place] [address] Dr. Ashlie GrahamGFR-NON AF CAPE VERDEAN>60Normal>=60The [facility] HospitalComment on above:Performed By: #### CBC #### [facility] [address] [place] [address] Dr. Ashlei HillsGlobulin (S) [Mass/Vol]4.8 g/dLNormalThe City HospitalComment on above:Performed By: #### CBC #### [facility] [address] [place] [address] Dr. Ashlie HillsGlucose [Mass/Vol]162 mg/dLCritically fftl02-736EblAvita Health System Bucyrus Hospitalment on above:Performed By: #### CBC #### [facility] [address] [place] [address] Dr. Ashlie HillsPotassium [Moles/Vol]3.8 mmol/LNormal3.5-5.1[facility] Comment on above:Performed By: #### CBC #### [facility] [address] [place] [address] Dr. Ashlie HillsProtein [Mass/Vol]7.8 g/dLNormal6.4-8.2[facility] Comment on above:Performed By: #### CBC #### [facility] [address] [place] [address] Dr. Ashlie HillsSodium [Moles/Vol]144 mmol/HFdyadx521-399[facility] Comment on above:Performed By: #### CBC #### [facility] [address] [place] [address] Dr. Ashlie HillsUrea nitrogen [Mass/Vol]24.0 mg/dLCritically high7.0-18.0The City HospitalComment on above:Performed By: #### CBC #### [facility] [address] [place] [address] Dr. Ashlie Jones nitrogen/Creatinine [Mass ratio]31.2 mg/mgNormalThe City HospitalComment on above:Performed By: #### CBC #### [facility] [address] [place] [address] Dr. Ashlie Chinchilla AUTO DIFFon [id number] #0.1 103/ulNormal0.0-0.1The City HospitalComment on above:Performed By: #### CBC #### [facility] [address] [place] [address] Dr. Ashlie HillsBasophils/100 WBC (Bld)0.6 %Normal0.2-2.0[facility] Comment on above:Performed By: #### CBC #### [facility] [address] [place] [address] Dr. Ashlie Mcintosh #0.3 103/ulNormal0.0-0.7The City HospitalComment on above: Performed By: #### CBC #### [facility] [address] [place] [address] Dr. Ashlie Grahamosinophils/100 WBC (Bld)2.1 %Normal0.9-7.0[facility] Comment on above:Performed By: #### CBC #### [facility] [address] [place] [address] Dr. Ashlie Grahamrythrocyte distribution width (RBC) [Ratio]15.9 %Critically high 11.0-15.0The City HospitalComment on above:Performed By: #### CBC #### [facility] [address] [place] [address] Dr. Ashlie HillsHematocrit (Bld) [Volume fraction]51.8 %Critically high36.0-48.0 The City HospitalComment on above:Performed By: #### CBC #### [facility] [address] [address] [address] Ashlie HillsHemoglobin (Bld) [Mass/Vol]16.6 g/dLCritically high12.0-16.0The City HospitalComment on above:Performed By: #### CBC #### [facility] [address] [place] [address] Dr. Ashlie Hunter #0.03 10e3/ulNormal0.00-0.03The City HospitalComment on above:Performed By: #### CBC #### [facility] [address] [place] [address] Dr. Ashlie Hunter %0.2 %Normal0.0-0.5The City HospitalComment on above: Performed By: #### CBC #### [facility] [address] [place] [address] Dr. Ashlie Swenson #3.9 103/ulCritically high1.2-3.8[facility] Comment on above:Performed By: #### CBC #### [facility] [address] [place] [address] Dr. Ashlie Dsouzahocytes/100 WBC (Bld)31.7 %Ffhmcv46.5-60.0The [facility] HospitalComment on above:Performed By: #### CBC #### [facility] [address] [place] [address] Dr. Ashlie GhoshUAL DIFF REQNONormalThe City HospitalComment on above: Performed By: #### CBC #### [facility] [address] [place] [address] Dr. Ashlie Mckeon (RBC) [Entitic mass]27.9 tgMwqoly39.7-34.0The City HospitalComment on above:Performed By: #### CBC #### [facility] [address] [place] [address] Dr. Ashlie Mckeon (RBC) [Mass/Vol]32.0 g/oUKhvvwn35.9-35.2The City HospitalComment on above:Performed By: #### CBC #### [facility] [address] [address] [address] Ashlie MckeonV (RBC) [Entitic vol]87.1 pNLcmjjt96.0-99.0The [facility] HospitalComment on above:Performed By: #### CBC #### [facility] [address] [place] [address] Dr. Ashlie Killian #0.7 103/ulNormal0.3-0.8The City HospitalComment on above:Performed By: #### CBC #### [facility] [address] [place] [address] Dr. Ashlie Palominoocytes/100 WBC (Bld)5.8 %Normal1.7-12.0[facility] Comment on above:Performed By: #### CBC #### [facility] [address] [place] [address] Dr. Ashlie Olsen #7.3 103/ulCritically high1.4-6.5[facility] Comment on above:Performed By: #### CBC #### [facility] [address] [place] [address] Dr. Ashlie Quiñonesutrophils/100 WBC (Bld)59.6 %Kaopud90.0-75.0The City HospitalComment on above:Performed By: #### CBC #### [facility] [address] [place] [address] Dr. Ashlie Lantigualet mean volume (Bld) [Entitic vol]11.7 fLNormal9.5-13.5The City HospitalComment on above:Performed By: #### CBC #### [facility] [address] [place] [address] Dr. Ashlie HillsPLT117 103/ulCritically iff616-143Mqs City HospitalComment on above:Performed By: #### CBC #### [facility] [address] [place] [address] Dr. Ashlie HillsRBC5.95 106/ulCritically high4.20-5.40[facility] Comment on above:Performed By: #### CBC #### [facility] [address] [address] [address] Ashlie HillsWBC12.3 103/ulCritically high4.0-11.0The [facility] Hospitalment on above:Performed By: #### CBC #### [facility] [address] [address] [address] Ashlie HillsCT ABD/PELV W CONon [id number] ABD/PELV W CONEXAM: CT ABD/PELV W CON [...] Electronically authenticated by: RICCO PICKARD Date: 2022-10-05 13:13[facility] URINE PROFILEon 17-53-8837Iuzhlemqz Ql (U)NegativeNormal NEGATIVEThe City HospitalComment on above:Performed By: #### POCGLUC #### [facility] [address] [place] [address] Dr. Ashlie HillsClarity (U)CLEARNormalCLEARThe City HospitalComment on above: Performed By: #### POCGLUC #### [facility] [address] [address] [address] Ashlie Prescottlor (U)YELLOWNormalYELLOWMercy Health Allen HospitalComment on above: Performed By: #### POCGLUC #### [facility] [address] [place] [address] Dr. Ashlie Clayton micrscopic examination will be performed if indicated. NormalSt. Elizabeth Hospital HospitalComment on above:Performed By: #### POCGLUC #### [facility] [address] [address] [address] Ashlie Rutledgeose Ql (U)NegativeNormalNEGATIVEMercy Health Allen HospitalComment on above:Performed By: #### POCGLUC #### [facility] [address] [place] [address] Dr. Ashlie HillsHemoglobin Ql (U)NegativeNormalNEGATIVEMercy Health Allen Hospital Comment on above:Performed By: #### POCGLUC #### [facility] [address] [place] [address] Dr. Ashlie HillsKetones Ql (U)NegativeNormalNEGATIVEMercy Health Allen HospitalComment on above:Performed By: #### POCGLUC #### [facility] [address] [place] [address] Dr. Ashlie HillsLEUKOCYTESNegativeNormalNEGATIVEMercy Health Allen HospitalCominsight surgical hospital on above:Performed By: #### POCGLUC #### [facility] [address] [place] [address] Dr. Ashlie HillsNitrite Ql (U)NegativeNormalNEGATIVEMercy Health Allen HospitalComment on above:Performed By: #### POCGLUC #### [facility] [address] [place] [address] Dr. Ashlie HillspH (U)6.0 [pH]Normal5-9[facility] HospitalComment on above: Performed By: #### POCGLUC #### [facility] [address] [place] [address] Dr. Ashlie HillsProtein (U) [Mass/Vol]100 mg/dLAbnormalNEGATIVE/ TRACESt. Elizabeth Hospital HospitalComment on above:Performed By: #### POCGLUC #### [facility] [address] [address] [address] Ashlie HillsSPEC GRAVITY1.320Cpwvkd0.005-<=1.025The City HospitalComment on above:Performed By: #### POCGLUC #### [facility] [address] [address] [address] Ashlie Sullivan MICRO INDINDICATEDNormalThe City HospitalComment on above: Performed By: #### POCGLUC #### [facility] [address] [address] [address] Ashlie Metzbilinogen Qn (U)1.0 {Little'U}/dLNormal0.2 - 1.0The City HospitalComment on above:Performed By: #### POCGLUC #### [facility] [address] [place] [address] Dr. Ashlie HillsLIPASEon 43-52-6639Bpwiuw [Catalytic activity/Vol]1771.0 U/L Critically high73.0-393.0The [facility] HospitalComment on above:Performed By: #### CBC #### [facility] [address] [place] [address] Dr. Ashlie Sewell HCG QUALon [id number], QUALNegativeNormalNEGATIVE The City HospitalComment on above:Performed By: #### POCGLUC #### [facility] [address] [place] [address] Dr. Ashlie HillsPROF 14(COMP METB)on 58-75-5228Oyowqvw [Mass/Vol]3.2 g/dL Critically low3.4-5.0The [facility] HospitalComment on above:Performed By: #### CBC #### [facility] [address] [place] [address] Dr. Ashlie HillsAlbumin/Globulin [Mass ratio]0.7 {ratio}NormalThe [facility] on above:Performed By: #### CBC #### [facility] [address] [place] [address] Dr. Ashlie MoralesP [Catalytic activity/Vol]70 U/HRjqlwa23-749Nwl City HospitalComment on above:Performed By: #### CBC #### [facility] [address] [address] [address] Ashlie MoralesT [Catalytic activity/Vol]11 U/LCritically uxh34-43Xrm [facility] HospitalComment on above:Performed By: #### CBC #### [facility] [address] [address] [address] Ashlie Hassanon gap [Moles/Vol]10.3 mmol/LNormalThe [facility] Comment on above:Performed By: #### CBC #### [facility] [address] [address] [address] Ashlie HillsAST [Catalytic activity/Vol]11 U/LCritically aeh50-50Dkq [facility] HospitalComment on above:Performed By: #### CBC #### [facility] [address] [address] [address] Ashlie HillsBilirubin [Mass/Vol]0.9 mg/dLNormal0.2-1.0[facility] Comment on above:Performed By: #### CBC #### [facility] [address] [address] [address] Ashlie HillsCalcium [Mass/Vol]9.3 mg/dLNormal8.5-10.1[facility] Comment on above:Performed By: #### CBC #### [facility] [address] [address] [address] Ashlie HillsChloride [Moles/Vol]105 mmol/GXfeifo43-644Jbq [facility] Comment on above:Performed By: #### CBC #### [facility] [address] [address] [address] Ashlie HillsCO2 [Moles/Vol]30.6 mmol/QJlgzmm08.0-32.0[facility] Comment on above:Performed By: #### CBC #### [facility] [address] [address] [address] Ashlie HillsCreatinine [Mass/Vol]0.62 mg/dLNormal0.55-1.02The [facility] Hospitalment on above:Performed By: #### CBC #### [facility] [address] [address] [address] Ashlie GrahamGFR-AF CAPE VERDEAN>60Normal>=60The [facility] HospitalComment on above:Performed By: #### CBC #### [facility] [address] [address] [address] Ashlie GrahamGFR-NON AF CAPE VERDEAN>60Normal>=60The [facility] HospitalComment on above:Performed By: #### CBC #### [facility] [address] [address] [address] Ashlie HillsGlobulin (S) [Mass/Vol]4.6 g/dLNormalThe City HospitalCominsight surgical hospital on above:Performed By: #### CBC #### [facility] [address] [address] [address] Ashlie HillsGlucose [Mass/Vol]85 mg/wPOtohbd88-617TohMercy Health [facility] Hospital Comment on above:Performed By: #### CBC #### [facility] [address] [address] [address] Ashlie iHllsPotassium [Moles/Vol]3.9 mmol/LNormal3.5-5.1[facility] Comment on above:Performed By: #### CBC #### [facility] [address] [address] [address] Ashlie HillsProtein [Mass/Vol]7.8 g/dLNormal6.4-8.2[facility] Comment on above:Performed By: #### CBC #### [facility] [address] [address] [address] Ashlie HillsSodium [Moles/Vol]142 mmol/ICqpxoe960-084Yfn [facility] Comment on above:Performed By: #### CBC #### [facility] [address] [address] [address] Ashlie HillsUrea nitrogen [Mass/Vol]12.0 mg/dLNormal7.0-18.0The [facility] Hospitalment on above:Performed By: #### CBC #### [facility] [address] [address] [address] Ashlie HillsUrea nitrogen/Creatinine [Mass ratio]19.4 mg/mgNoGeorgetown Behavioral HospitalCominsight surgical hospital on above:Performed By: #### CBC #### [facility] [address] [address] [address] Ashlie Recinos MICROSCOPIC ONLYon 70-35-0151XMXQJPGWHUIDSNgdxnzgqUNGB SEEN [facility] HospitalCominsight surgical hospital on above:Performed By: #### POCGLUC #### [facility] [address] [address] [address] Ashlie Cortez identified Cx Nom (U)NOT INDICATEDChildren's Hospital for RehabilitationCominsight surgical hospital on above:Performed By: #### POCGLUC #### [facility] [address] [place] [address] Dr. Ashlie Thibodeaux SEENNormalNONE SEENBellevue [facility] on above:Performed By: #### POCGLUC #### [facility] [address] [place] [address] Dr. Ashlie Boyerystals LM Nom (Urine sed)NONE SEENNormalNONE SEENBellevue Hospital on above:Performed By: #### POCGLUC #### [facility] [address] [place] [address] Dr. Dailey ChangEpithelial cells LM Ql (Urine sed)MODERATEAbnormalNONE SEEN /RARE [facility] HospitalCominsight surgical hospital on above:Performed By: #### POCGLUC #### [facility] [address] [place] [address] Dr. Ashlie SuarezCOUSNONE SEENNormalNONE SEENBellevue Hospital on above:Performed By: #### POCGLUC #### [facility] [address] [place] [address] Dr. Ashlie PruettHcmqqZQZ1-5Ehgmgl4-7Jid [facility] on above:Performed By: #### POCGLUC #### [facility] [address] [place] [address] Dr. Ashlie BhaktaBC0-2AbnormalNONE SEENChillicothe [facility] Center [facility] on above: Performed By: #### POCGLUC #### [facility] [address] [address] [address] Ashlie Tapia-19 PCR ([facility])on 09-85-0756XVAO-CoV-2 (COVID-19) RNA MADDY+probe Ql (Unsp spec)DetectedAbnormalNOT DETECTEDThe [facility] on above:Result Comment: This test is not yet approved or cleared by the [place] FDA. When there are no FDA-approved or cleared tests available, and other criteria are met, FDA can make tests available under an emergency access mechanism called an Emergency Use Authorization (EUA). The EUA for this test is supported by the Merchandise Car[employer] of Health and Human Service's declaration that [...] longer be used).Performed By: #### CVDAGS #### [facility] [address] [place] [address] Dr. Ashlie Centeno AND B AGon [id number] [facility]ayette [facility] Center on above:Result Comment: Negative for Flu A protein angiten. Infection due to Flu A cannot be ruled out. FluA angiten in the sample may be below the detection limit of the test.Performed By: #### INFLUAB #### [facility] [address] [address] [address] Ashlie HillsINFLUBNEGHSEE [facility] on above: Result Comment: Negative for Flu B protein antigen. Infection due to Flu B cannot be ruled out. FluB antigen in the sample may be below the detection limit of the test.Performed By: #### INFLUAB #### [facility] [address] [place] [address] Dr. Ashlie Centeno AGNegativeNormalNEGATIVE SEE COMMENTThe City HospitalComment on above:Performed By: #### INFLUAB #### [facility] [address] [place], [place] [address] Dr. Ashlie Shaffer AGNegativeNormalNEGATIVE SEE COMMENTThe City HospitalComment on above:Performed By: #### INFLUAB #### [facility] [address] [place], [place] [address] Dr. Ashlie HillsCT ABD/PELV W CONon [id number] ABD/PELV W CONINDICATION: Disorder of adrenal gland [...] dating back to at least 10/21/2018, unchanged. https://www.ncbi.nlm.nih.gov/pmc/articles/TPN9626301/ Electronically authenticated by: COLLIN HUERTAS Date: 2022-07-27 14:56[facility] for RehabilitationCREATININEon 38-74-5300Osmxnfoddx [Mass/Vol]0.81 mg/dLNormal 0.55-1.02[facility] HospitalComment on above:Performed By: #### CBC #### [facility] [address] [address] [address] Ashlie GrahamGFR-AF CAPE VERDEAN>60Normal>=60The [facility] on above:Performed By: #### CBC #### [facility] [address] [address] [address] Ashlie GrahamGFR-NON AF CAPE VERDEAN>60Normal>=60The [facility] HospitalComment on above:Performed By: #### CBC #### [facility] [id number] Ashlie Radford LOW EXT W CONT LTon [id number] LOW EXT W CONT LTEXAMINATION: CT LOW [...] Electronically authenticated by: PATRICIA VELOZ Date: 2022-07-18 14:58NoGeorgetown Behavioral HospitalXR KNEE LT 1_2 Von [id number] KNEE LT 1_2 VEXAM: XR KNEE LT [...] Electronically authenticated by: HATTIE BAUTISTA Date: 2022-07-18 12:00[facility] for RehabilitationCovid-19 PCR ([facility])on [id number]-CoV-2 (COVID-19) RNA MADDY+probe Ql (Unsp spec)Not detectedNormalNOT DETECTEDMercy Health [facility] Hospital Comment on above:Result Comment: This test is not yet approved or cleared by the [place] FDA. When there are no FDA-approved or cleared tests available, and other criteria are met, FDA can make tests available under an emergency access mechanism called an Emergency Use Authorization (EUA). The EUA for this test is supported by the [place] of Health and Human Service's (HHS's) declaration [...] consistent with SARS-CoV-2.Performed By: #### CBC #### [facility] [address] [place] [address] Dr. Ashlie Centeno AND [facility] [id number] HospitalComment on above:Result Comment: Negative for Flu A protein angiten. Infection due to Flu A cannot be ruled out. FluA angiten in the sample may be below the detection limit of the test.Performed By: #### CBC #### [facility] [address] [place] [address] Dr. Ashlie VelasquezUBNEGDEDRICK [facility] on above: Result Comment: Negative for Flu B protein antigen. Infection due to Flu B cannot be ruled out. FluB antigen in the sample may be below the detection limit of the test.Performed By: #### CBC #### [facility] [address] [place] [address] Dr. Ashlie Centeno AGNegativeNormalNEGATIVE SEE COMMENTThe [facility] on above:Performed By: #### CBC #### [facility] [address] [place] [address] Dr. Ahslie Lockhart B AGNegativeNormalNEGATIVE SEE COMMENTThe [facility] on above:Performed By: #### CBC #### [facility] [address] [place] [address] Dr. Ashlie HillsPOINT OF CARE GLUCOSEon [id number] [Mass/Vol]108 mg/dL Critically fobo14-291Taf [facility]Com[facility] on above:Performed By: #### CBC #### [facility] [address] [place] [address] Dr. Ashlie HillsANA by IFAon 25-23-2365Omeckfndacz Antibodies, IFANegativeNormal [facility] on above:Result Comment: Negative <1:80 Borderline 1:80 Positive >1:80 ICAP nomenclature: AC-0 For more information about Hep-2 cell patterns use ANApatterns.org, the official website for the International Consensus on Antinuclear Antibody (RAGHU) Patterns (ICAP).Performed By: #### ANAIFA #### [facility] [address] [place] [address] Dr. Ashlie HillsIMMUNOFIXATION (TREVON), URINEon [id number] Interpretation:U CommentNormalThe [facility] on above:Result Comment: No monoclonality detected.Performed By: #### CBC #### [facility] [address] [place] [address] Dr. Ashlie HillsIMMUNOFIXATION(TREVON),PROTEIN ELEC(PE),FREon 16-16-3045Tovwfjd [Mass/Vol]3.0 g/dLNormal2.9-4.4The [facility] Hospitalment on above:Performed By: #### INFLUAB #### [facility] [address] [place] [address] Dr. Ashlie HillsAlbumin/Globulin [Mass ratio]0.8 {ratio}Normal0.7-1.7[facility] on above:Performed By: #### INFLUAB #### [facility] [address] [place] [address] Dr. Ashlie HillsVgqcnOqtji-0-Myoywcck7.3 g/dLNormal0.0-0.4ThGuernsey Memorial HospitalComment on above:Performed By: #### INFLUAB #### [facility] [address] [place] [address] Dr. Ashlie HillsHkapjWhbvi-3-Nwisumfu2.0 g/dLNormal0.4-1.0[facility] HospitalComment on above:Performed By: #### INFLUAB #### [facility] [address] [place] [address] Dr. Ashlie HillsBeta Globulin1.8 g/dLCritically high0.7-1.3TTriHealth [facility] Comment on above:Performed By: #### INFLUAB #### [facility] [address] [place] [address] Dr. Ashlie Skelton [place] Lt Chains,S45.2 mg/LCritically high3.3-19.4ThGuernsey Memorial HospitalComment on above:Performed By: #### INFLUAB #### [facility] [address] [place] [address] Dr. Ashlie Skelton Lambda Lt Chains,S40.3 mg/LCritically high5.7-26.3TTriHealth Bethesda North HospitalComment on above:Performed By: #### INFLUAB #### [facility] [address] [place] [address] Dr. Ashlie HillsGamma Globulin0.8 g/dLNormal0.4-1.8The City HospitalComment on above:Performed By: #### INFLUAB #### [facility] [address] [place] [address] Dr. Ashlie HillsGlobulin (S) [Mass/Vol]3.9 g/dLNormal2.2-3.9[facility] Comment on above:Performed By: #### INFLUAB #### [facility] [address] [place] [address] Dr. Ashlie HillsImmunofixation Result, SerumCommentNoGeorgetown Behavioral Hospital Comment on above:Result Comment: No monoclonality detected.Performed By: #### INFLUAB #### [facility] [address] [address] [address] Ashlie HillsImmunoglobulin A, Qn, Wgqpf947 mg/dLCritically uikm01-314Mvu [facility] Hospitalment on above:Performed By: #### INFLUAB #### [facility] [address] [place] [address] Dr. Ashlie HillsImmunoglobulin G, Qn, Ohaqz362 mg/cLTrorej274-2989Tyb [facility] HospitalCom[facility] on above:Performed By: #### INFLUAB #### [facility] [address] [place] [address] Dr. Ashlie HillsImmunoglobulin M, Qn, Serum39 mg/aZKhihxc83-585Bim [facility] HospitalCom[facility] hospital on above:Performed By: #### INFLUAB #### [facility] [address] [place] [address] Dr. Ashlie HillsKappa/Lambda Ratio, S1.45Lojnvg2.26-1.65[facility] Comment on above:Performed By: #### INFLUAB #### [facility] [address] [place] [address] Dr. Ashlie HillsM-SpikeNot ObservedNormalNot ObservedThe City HospitalCominsight surgical hospital on above:Performed By: #### INFLUAB #### [facility] [address] [place] [address] Dr. Ashlie Bradford.NormalThe [facility] on above:Performed By: #### INFLUAB #### [facility] [address] [place] [address] Dr. Ashlie Fletcher note:CommentNormalThe [facility] on above: Result Comment: Protein electrophoresis scan will follow via computer, mail, or forms builder delivery.Performed By: #### INFLUAB #### [facility] [address] [place] [address] Dr. Ashlie HillsProtein [Mass/Vol]6.9 g/dLNormal6.0-8.5ThGuernsey Memorial Hospital Comment on above:Performed By: #### INFLUAB #### [facility] [address] [place] [address] Dr. Ashlie HillsC-PEPTIDE, SERUMon 38-30-6047R-Peptide, Serum3.1 ng/mLNormal 1.1-4.4The City HospitalComment on above:Result Comment: C-Peptide reference interval is for fasting patients.Performed By: #### CPEPT #### [facility] [address] [place] [address] Dr. Ashlie Sandoval B SURFACE ANTIGEN SCREENon 34-48-7127QUzAk ScreenNegative NormalNegativeThe City HospitalComment on above:Performed By: #### CBC #### [facility] [address] [place] [address] Dr. Ashlie ChuaTIS C VIRUS AB W/ REFLEX QUANTon [id number] AB<0.1Normal 0.0-0.9The [facility] Hospitalment on above:Performed By: #### INFLUAB #### [facility] [address] [place] [address] Dr. Ashlie HillsInterpretation:CommentNormalThe City HospitalComment on above:Result Comment: Negative Not infected with HCV, unless recent infection is suspected or other evidence exists to indicate HCV infection.Performed By: #### INFLUAB #### [facility] [address] [place] [address] Dr. Ashlie HillsMICROALBUMIN/ CREATININE RATIOon 87-90-7754Fplwapj, Kpusl376.4 ug/mLNormalNot Estab.The [facility] HospitalCominsight surgical hospital on above:Performed By: #### CBC #### [facility] [address] [place] [address] Dr. Ashlie HilslAlbumin/ Creatinine Vuoaf696 mg/g creatCritically high0-29The City HospitalComment on above:Result Comment: Normal: 0 - 29 Moderately increased: 30 - 300 Severely increased: >300Performed By: #### CBC #### [facility] [address] [place] [address] Dr. Ashlie HillsCreatinine, Pyqpy441.9 mg/dLNormalNot Estab.[facility] Comment on above:Performed By: #### CBC #### [facility] [address] [address] [address] Ashlie Ramsey 25-[place] LABCORPon 59-58-2342Mmodcja D, 25-Hydroxy<4.0 Critically low30.0-100.0[facility] on above:Result Comment: Vitamin D deficiency has been defined by the [place] of [employer] and an Endocrine Society practice guideline as a level of serum 25-OH vitamin D less than 20 ng/mL (1,2). The Endocrine Society went on to further define vitamin D insufficiency as a level between 21 and 29 ng/mL (2). 1. IOM ([place] of [employer]). 2010. Dietary reference intakes for calcium and D. [place]: The National Academies Press. 2. Lynda MF, Keely OLIVEROS, Leandra LOPEZ, et al. Evaluation, treatment, and prevention of vitamin D deficiency: an Endocrine Society clinical practice guideline. JCEM. 2010; 96(7):1911-30.Performed By: #### CBC #### [facility] [address] [place] [address] Dr. Ashlie HillsGLYCOHEMOGLOBIN A1Con 39-74-0190EUP RECOMMENDATIONSEE BELOWNormal The City HospitalComment on above:Result Comment: ADA RECOMMENDED LIMIT 4.0 - 6.0 ADA THERAPEUTIC TARGET < 7.0 ACTION SUGGESTED > 7.0Performed By: #### CVDAGS #### [facility] [address] [address] [address] Ashlie HillsGlucose [Mass/Vol]295 mg/dLNormalThe City HospitalComment on above:Performed By: #### CVDAGS #### [facility] [address] [address] [address] Ashlie HillsHbA1c (Bld) [Mass fraction]11.9 %Critically high4.5-6.2The City HospitalComment on above:Performed By: #### CVDAGS #### [facility] [address] [place] [address] Dr. Ashlie HillsHEMOGRAM AND PLATELon 16-31-8490Gxgunwirif (Bld) [Volume fraction]56.3 %Critically high36.0-48.0The City HospitalComment on above: Performed By: #### CVDAGS #### [facility] [address] [place] [address] Dr. Ashlie HillsHemoglobin (Bld) [Mass/Vol]18.0 g/dLCritically high12.0-16.0The City HospitalComment on above:Performed By: #### CVDAGS #### [facility] [address] [place] [address] Dr. Ashlie MckeonH (RBC) [Entitic mass]29.5 eiQrniqc99.7-34.0The City HospitalComment on above:Performed By: #### CVDAGS #### [facility] [address] [place] [address] Dr. Ashlie Mckeon (RBC) [Mass/Vol]32.0 g/wHVxujih93.9-35.2The City HospitalComment on above:Performed By: #### CVDAGS #### [facility] [address] [place] [address] Dr. Ashlie MckeonV (RBC) [Entitic vol]92.1 zBXaswju17.0-99.0The City HospitalComment on above:Performed By: #### CVDAGS #### [facility] [address] [place] [address] Dr. Ashlie HillsPLT123 103/ulCritically sme109-442Evw City HospitalComment on above:Performed By: #### CVDAGS #### [facility] [address] [place] [address] Dr. Ashlie HillsRBC6.11 106/ulCritically high4.20-5.40[facility] Comment on above:Performed By: #### CVDAGS #### [facility] [address] [place] [address] Dr. Ashlie HillsWBC16.4 103/ulCritically high4.0-11.0The City HospitalComment on above:Performed By: #### CVDAGS #### [facility] [address] [place], [place] [id number] Dr. Ashlie OmerID PROFILEon 15-38-4700VBJW-HDL RATIO NORMSKettering Health Greene MemorialComment on above:Result Comment: 3.3 - 4.4 LOW RISK 4.4 - 7.1 AVERAGE RISK 7.1 - 11.0 MODERATE RISK >11.0 HIGH RISKPerformed By: #### CVDAGS #### [facility] [address] [place] [address] Dr. Ashlie HillsCholesterol [Mass/Vol]159 mg/dLNormal<=200[facility] Comment on above:Performed By: #### CVDAGS #### [facility] [address] [place] [address] Dr. Ashlie HillsCholesterol in HDL [Mass/Vol]40 mg/pTUjpfva78-57DimMercy Health Allen HospitalComment on above:Performed By: #### CVDAGS #### [facility] [address] [place] [address] Dr. Ashlie HillsCholesterol in LDL [Mass/Vol]81.8 mg/dLChildren's Hospital for RehabilitationComment on above:Performed By: #### CVDAGS #### [facility] [address] [place] [address] Dr. Ashlie Lopezesteroralia.total/Cholesterol in HDL [Mass ratio]4.0 {ratio} NormalMercy Health Allen HospitalComment on above:Performed By: #### CVDAGS #### [facility] [address] [place] [address] Dr. Ashlie Potts NORMAL> or = 60 mg/dl - LOW CARDIOVASCULAR RISK <40 mg/dl - HIGH CARDIOVASCULAR RISKChildren's Hospital for RehabilitationComment on above:Performed By: #### CVDAGS #### [facility] [address] [place] [address] Dr. Ashlie HillsLDL CALC NORMALSEE [facility] HospitalComment on above:Result Comment: <100 mg/dl OPTIMAL 100 - 129 mg/dl NEAR OR ABOVE OPTIMAL 130 - 159 mg/dl BORDERLINE HIGH 160 - 189 mg/dl HIGH >190 mg/dl VERY HIGH Performed By: #### CVDAGS #### [facility] [address] [address] [address] Ashlie HillsTriglyceride [Mass/Vol]186 mg/dLCritically high<=150The City HospitalComment on above:Performed By: #### CVDAGS #### [facility] [address] [address] [address] Ashlie HillsVLDL CALC37.2 mg/dLNormalThe City HospitalComment on above: Performed By: #### CVDAGS #### [facility] [address] [address] [address] Ashlie Rhodes FUNCTION PANELon 04-79-2388Hjbyyme [Mass/Vol]3.1 g/dL Critically low3.4-5.0The City HospitalComment on above:Performed By: #### CBC #### [facility] [address] [address] [address] Ashlie HillsCalcium [Mass/Vol]9.2 mg/dLNormal8.5-10.1[facility] Comment on above:Performed By: #### CBC #### [facility] [address] [address] [address] Ashlie HillsChloride [Moles/Vol]102 mmol/WRjfihu70-901[facility] Comment on above:Performed By: #### CBC #### [facility] [address] [address] [address] Ashlie HillsCO2 [Moles/Vol]31.9 mmol/HJtrmmi24.0-32.0[facility] Comment on above:Performed By: #### CBC #### [facility] [address] [address] [address] Ashlie HillsCreatinine [Mass/Vol]0.68 mg/dLNormal0.55-1.02The City HospitalComment on above:Performed By: #### CBC #### [facility] [address] [address] [address] Dailey ChangEGFR-AF CAP[place] VERDE[place]>60Normal>=60The City HospitalComment on above:Performed By: #### CBC #### [facility] [address] [address] [address] Ashlie GrahamGFR-NON AF [place]>60Normal>=60The City HospitalComment on above:Performed By: #### CBC #### [facility] [address] [address] [address] Ashlie HillsGlucose [Mass/Vol]131 mg/dLCritically rqmm10-265Mxe City HospitalComment on above:Performed By: #### CBC #### [facility] [address] [address] [address] Ashlie HillsPhosphate [Mass/Vol]4.0 mg/dLNormal2.6-4.7[facility] Comment on above:Performed By: #### CBC #### [facility] [address] [address] [address] Ashlie HillsPotassium [Moles/Vol]4.0 mmol/LNormal3.5-5.1[facility] Comment on above:Performed By: #### CBC #### [facility] [address] [address] [address] Ashlie HillsSodium [Moles/Vol]141 mmol/KFbwybl705-037UgbMercy Health Allen Hospital Comment on above:Performed By: #### CBC #### [facility] [address] [address] [address] Ashlie HillsUrea nitrogen [Mass/Vol]17.0 mg/dLNormal7.0-18.0The City HospitalComment on above:Performed By: #### CBC #### [facility] [address] [address] [address] Ashlie HillsUA RANDOM W/MICROSCOPICon 06-01-7991EDSNOXURJHUU SEENNormalNONE SEENThe City HospitalComment on above:Performed By: #### INFLUAB #### [facility] [address] [address] [address] Ashlie HillsBilirubin Ql (U)NegativeNormalNEGATIVEThe [facility] Comment on above:Performed By: #### INFLUAB #### [facility] [address] [address] [address] Ashlie HillsCASTNONE SEENNormalNONE SEENMercy Health Allen HospitalComment on above:Performed By: #### INFLUAB #### [facility] [address] [address] [address] Ashlie Chilel (U)CLEARNormalCLEARMercy Health Allen HospitalComment on above: Performed By: #### INFLUAB #### [facility] [address] [place] [address] Dr. Ashlie Prescottlor (U)YELLOWNormalYELLOWMercy Health Allen HospitalComment on above: Performed By: #### INFLUAB #### [facility] [address] [place] [address] Dr. Ashlie HillsCrystals LM Nom (Urine sed)NONE SEENNormalNONE SEENMercy Health Allen HospitalComment on above:Performed By: #### INFLUAB #### [facility] [address] [place] [address] Dr. Dailey ChangEpithelial cells LM Ql (Urine sed)FEWAbnormalNONE SEEN /RAREMercy Health Allen HospitalComment on above:Performed By: #### INFLUAB #### [facility] [address] [place] [address] Dr. Ashlie HillsGlucose Ql (U)NegativeNormalNEGATIVEMercy Health Allen HospitalComment on above:Performed By: #### INFLUAB #### [facility] [address] [place] [address] Dr. Ashlie HillsHemoglobin Ql (U)NegativeNormalNEGATIVEOhiohealth Grady Memorial Hospital on above:Performed By: #### INFLUAB #### [facility] [address] [place] [address] Dr. Ashlie HillsKetones Ql (U)NegativeNormalNEGATIVEMercy Health Allen HospitalComment on above:Performed By: #### INFLUAB #### [facility] [address] [place] [address] Dr. Ashlie HillsLEUKOCYTESNegativeNormalNEGATIVEMercy Health Allen HospitalComment on above:Performed By: #### INFLUAB #### [facility] [address] [place] [address] Dr. Ashlie SuarezCOUSCHAD SEENNormalNONE SEENThe City HospitalComment on above:Performed By: #### INFLUAB #### [facility] [address] [place] [address] Dr. Ashlie Santostrite Ql (U)NegativeNormalNEGATIVEThe City HospitalComment on above:Performed By: #### INFLUAB #### [facility] [address] [place] [address] Dr. Ashlie HillspH (U)5.5 [pH]Normal5-9The City HospitalComment on above: Performed By: #### INFLUAB #### [facility] [address] [place] [address] Dr. Ashlie HillsOsrooDHY8-8Kqbuef4-7Ffk City HospitalComment on above:Performed By: #### INFLUAB #### [facility] [address] [place] [address] Dr. Ashlie HillsSPEC GRAVITY>=1.366Mjsnebnn5.005-<=1.025[facility] Comment on above:Performed By: #### INFLUAB #### [facility] [address] [place] [address] Dr. Ashlie Vaughn GLJGXOF293 mg/dlAbnormalNEGATIVE/ TRACEThe [facility] Comment on above:Performed By: #### INFLUAB #### [facility] [address] [place] [address] Dr. Ashlie Metzbilinogen Qn (U)0.2 {Little'U}/dLNormal0.2 - 1.0The City HospitalComment on above:Performed By: #### INFLUAB #### [facility] [address] [place] [address] Dr. Ashlie HillsWBCNONTracey SEENNormalNONE SEENThe City HospitalComment on above: Performed By: #### INFLUAB #### [facility] [address] [place] [address] Dr. Ashlie Christine ACID SERUMon 32-77-3742Xpfcf [Mass/Vol]5.0 mg/dLNormal 2.6-6.0The City HospitalComment on above:Performed By: #### INFLUAB #### [facility] [address] [address] [address] Ashlie Recinos T PROTEIN CREAT RATIOon 57-44-4827Mynzbla (U) [Mass/Vol] 77.9 mg/dLCritically high<=12.0The City HospitalComment on above:Performed By: #### CVDAGS #### [facility] [address] [place] [address] Dr. Ashlie Sullivan PROT CREAT RAT0.44NormalThe City HospitalComment on above: Performed By: #### CVDAGS #### [facility] [address] [place] [address] Dr. Ashlie Recinos KXNVD503.15 mg/wCChkqgn36.00-300.00[facility] Comment on above:Performed By: #### CVDAGS #### [facility] [address] [place] [address] Dr. Ashlie OrdoñezLTREGINO URINEon 78-47-6568KPRJIJJ URINECulture Observations: GREATER THAN TWO ORGANISMS PRESENT, HEAVILY MIXED. PLEASE RESUBMIT CLEAN CATCH MID-STREAM URINE IF CLINICALLY INDICATED.NormalThe City HospitalComment on above:Performed By: #### INFLUAB #### [facility] [address] [place] [address] Dr. Ashlie VernonC AUTO DIFFon 11-67-2280DAAR #0.1 103/ulNormal0.0-0.1The City HospitalComment on above:Performed By: #### CBC #### [facility] [address] [place] [address] Dr. Ashlie HillsBasophils/100 WBC (Bld)0.5 %Normal0.2-2.0[facility] Comment on above:Performed By: #### CBC #### [facility] [address] [place] [address] Dr. Ashlie Mcintosh #0.4 103/ulNormal0.0-0.7The City HospitalComment on above: Performed By: #### CBC #### [facility] [address] [address] [address] Ashlie Grahamosinophils/100 WBC (Bld)2.4 %Normal0.9-7.0[facility] Comment on above:Performed By: #### CBC #### [facility] [address] [place] [address] Dr. Ashlie Grahamrythrocyte distribution width (RBC) [Ratio]14.1 %Tgiifx37.0-15.0 [facility] HospitalComment on above:Performed By: #### CBC #### [facility] [address] [place] [address] Dr. Ashlie HillsHematocrit (Bld) [Volume fraction]55.9 %Critically high36.0-48.0 The City HospitalComment on above:Performed By: #### CBC #### [facility] [address] [place] [address] Dr. Ashlie HillsHemoglobin (Bld) [Mass/Vol]17.9 g/dLCritically high12.0-16.0[facility] HospitalComment on above:Performed By: #### CBC #### [facility] [address] [place] [address] Dr. Ashlie Hunter #0.06 10e3/ulCritically high0.00-0.03[facility] Comment on above:Performed By: #### CBC #### [facility] [address] [place] [address] Dr. Ashlie Hunter %0.4 %Normal0.0-0.5ThGuernsey Memorial HospitalComment on above: Performed By: #### CBC #### [facility] [address] [place] [address] Dr. Ashlie Swenson #5.8 103/ulCritically high1.2-3.8[facility] Comment on above:Performed By: #### CBC #### [facility] [address] [place] [address] Dr. Ashlie Jademphocytes/100 WBC (Bld)35.4 %Hssbob62.5-60.0The City HospitalComment on above:Performed By: #### CBC #### [facility] [address] [place] [address] Dr. Ashlie GhoshUAL DIFF REQNONormalThe City HospitalComment on above: Performed By: #### CBC #### [facility] [address] [place] [address] Dr. Ashlie Mckeon (RBC) [Entitic mass]29.4 kaVcxhzm31.7-34.0The City HospitalComment on above:Performed By: #### CBC #### [facility] [address] [place] [address] Dr. Ashlie Mckeon (RBC) [Mass/Vol]32.0 g/cUYyetgs69.9-35.2The City HospitalComment on above:Performed By: #### CBC #### [facility] [address] [place] [address] Dr. Ashlie Mckeon (RBC) [Entitic vol]91.8 zETomsjf64.0-99.0The City HospitalComment on above:Performed By: #### CBC #### [facility] [address] [place] [address] Dr. Ashlie Killian #0.8 103/ulNormal0.3-0.8The City HospitalComment on above:Performed By: #### CBC #### [facility] [address] [place] [address] Dr. Ashlie Palominoocytes/100 WBC (Bld)4.8 %Normal1.7-12.0[facility] Comment on above:Performed By: #### CBC #### [facility] [address] [place] [address] Dr. Ashlie Olsen #9.3 103/ulCritically high1.4-6.5[facility] Comment on above:Performed By: #### CBC #### [facility] [address] [address] [address] Ashlie HillsNeutrophils/100 WBC (Bld)56.5 %Gvosjl34.0-75.0The City HospitalComment on above:Performed By: #### CBC #### [facility] [address] [address] [address] Ashlie HillsPlatelet mean volume (Bld) [Entitic vol]12.9 fLNormal9.5-13.5The City HospitalComment on above:Performed By: #### CBC #### [facility] [address] [address] [address] Ashlie HillsPLT127 103/ulCritically tzf574-601Wgy City HospitalComment on above:Performed By: #### CBC #### [facility] [address] [address] [address] Ashlie HillsRBC6.09 106/ulCritically high4.20-5.40[facility] Comment on above:Performed By: #### CBC #### [facility] [address] [address] [address] Ashlie HillsWBC16.4 103/ulCritically high4.0-11.0The [facility] Hospitalment on above:Performed By: #### CBC #### [facility] [address] [address] [address] Ashlie HillsCT ABD/PELVIS WO CONon 73-59-5624PS ABD/PELVIS WO CON Begin Addendum #1 Mildly [...] without diverticulitis. Severe right hip degenerative change.NormalThe [facility] URINE PROFILEon 40-04-9512Dqokacwva Ql (U) NegativeNormalNEGATIVEThe City HospitalComment on above:Performed By: #### EVONNE CLAY #### [facility] [address] [place] [address] Dr. Ashlie Chilel (U)CLEARNormalCLEARThe Wilfredo HospitalComment on above: Performed By: #### KRISTINAR, UMICRO #### [facility] [address] [address] [address] Ashlie Roberts (U) ORANGEAbnormalYELLOWMercy Health Allen HospitalComment on above:Performed By: #### OBED, UMICRO #### [facility] [address] [address] [address] Ashlie Clayton micrscopic examination will be performed if indicated. NormalMercy Health Allen HospitalComment on above:Performed By: #### KRISTINAR, UMICRO #### [facility] [address] [address] [address] Ashlie HillsGlucose Ql (U)250 mg/dlAbnost. luke's hospitalNEGGerman Hospital Comment on above:Performed By: #### OBED, UMICRO #### [facility] [address] [address] [address] Ashlie HillsHemoglobin Ql (U)NegativermalNEGGerman Hospital Comment on above:Performed By: #### OBED, UMICRO #### [facility] [address] [address] [address] Ashlie Connor Ql (U)NegativeNormalNEGATIVEMercy Health Allen HospitalComment on above:Performed By: #### OBED, UMICRO #### [facility] [address] [address] [address] Ashlie HillsLEUKOCYTESNegativeNormalNEGGerman HospitalComment on above:Performed By: #### KRISTINAR, UMICRO #### [facility] [address] [address] [address] Ashlie Santostrite Ql (U)NegativeNormalNEGATIVEMercy Health Allen HospitalComment on above:Performed By: #### ERUR, UMICRO #### [facility] [address] [address] [address] Ashlie HillspH (U)5.0 [pH]Normal5-9[facility] HospitalComment on above: Performed By: #### ERUR, UMICRO #### [facility] [address] [place] [address] Dr. Ashlie HillsProtein (U) [Mass/Vol]100 mg/dLAbnormalNEGATIVE/ TRACEThe City HospitalComment on above:Performed By: #### MADELINE CLAYRO #### [facility] [address] [place] [address] Dr. Ashlie iHllsSPEC GRAVITY>=1.496Wjwegoub3.005-<=1.025[facility] Comment on above:Performed By: #### MADELINE CLAYRO #### [facility] [address] [place] [address] Dr. Ashlie Sullivan MICRO INDINDICATEDNoGeorgetown Behavioral HospitalComment on above: Performed By: #### EVONNE CLAY #### [facility] [address] [place] [address] Dr. Ashlie Metzbilinogen Qn (U)1.0 {Little'U}/dLNormal0.2 - 1.0The City HospitalComment on above:Performed By: #### EVONNE CLAY #### [facility] [address] [place] [address] Dr. Ashlie Jones CHEM 8 (BAS METB)on 60-15-9873Gmaza gap [Moles/Vol]12.1 mmol/LNormalThe City HospitalComment on above:Performed By: #### INFLUAB #### [facility] [address] [place] [address] Dr. Ashlie HillsCalcium [Mass/Vol]9.0 mg/dLNormal8.5-10.1[facility] Comment on above:Performed By: #### INFLUAB #### [facility] [address] [place] [address] Dr. Ashlie HillsChloride [Moles/Vol]101 mmol/ZScdfhn43-244JesMercy Health Allen Hospital Comment on above:Performed By: #### INFLUAB #### [facility] [address] [place] [address] Dr. Ashlie HillsCO2 [Moles/Vol]29.1 mmol/TKzfacd73.0-32.0[facility] Comment on above:Performed By: #### INFLUAB #### [facility] [address] [place] [address] Dr. Ashlie HillsCreatinine [Mass/Vol]0.86 mg/dLNormal0.55-1.02The City HospitalComment on above:Performed By: #### INFLUAB #### [facility] [address] [place] [address] Dr. Dailey ChangEGFR-AF CAP[place]>60Normal>=60The City HospitalComment on above:Performed By: #### INFLUAB #### [facility] [address] [place] [address] Dr. Ashlie GraahmGFR-NON AF [place]>60Normal>=60The City HospitalComment on above:Performed By: #### INFLUAB #### [facility] [address] [place] [address] Dr. Ashlie HillsGlucose [Mass/Vol]236 mg/dLCritically ujuh93-261Xex City HospitalComment on above:Performed By: #### INFLUAB #### [facility] [address] [place] [address] Dr. Ashlie HillsPotassium [Moles/Vol]4.2 mmol/LNormal3.5-5.1[facility] Comment on above:Performed By: #### INFLUAB #### [facility] [address] [place] [address] Dr. Ashlie HillsSodium [Moles/Vol]138 mmol/POupwvu128-376[facility] Comment on above:Performed By: #### INFLUAB #### [facility] [address] [place] [address] Dr. Ashlie HillsUrea nitrogen [Mass/Vol]11.0 mg/dLNormal7.0-18.0The City HospitalComment on above:Performed By: #### INFLUAB #### [facility] [address] [place] [address] Dr. Yilan ChangUrea nitrogen/Creatinine [Mass ratio]12.8 mg/mgNoGeorgetown Behavioral HospitalComment on above:Performed By: #### INFLUAB #### [facility] [address] [place] [address] Dr. Ashlie Recinos MICROSCOPIC ONLYon [id number]R SEEN [facility] HospitalCominsight surgical hospital on above:Performed By: #### OBED UMICRO #### [facility] [address] [address] [address] Ashlie Cortez identified Cx Nom (U)INDICATEDChildren's Hospital for RehabilitationCominsight surgical hospital on above:Performed By: #### OBED UMICRO #### [facility] [address] [place] [address] Dr. Ashlie Thibodeaux SEENNormalNONE SEENMercy Health Allen HospitalCominsight surgical hospital on above:Performed By: #### OBED UMICRO #### [facility] [address] [place] [address] Dr. Ashlie Banegas LM Nom (Urine sed)NONE SEENNormalNONE SEENMercy Health Allen HospitalCominsight surgical hospital on above:Performed By: #### OBED UMICRO #### [facility] [address] [place] [address] Dr. Dailey ChangEaustinthelial cells LM Ql (Urine sed)MODERATEAbnormalNONE SEEN /RARE The [facility] HospitalCominsight surgical hospital on above:Performed By: #### OBED UMICRO #### [facility] [address] [place] [address] Dr. Ashlie HaroE SEENNormalNONE SEENMercy Health Allen HospitalCominsight surgical hospital on above:Performed By: #### OBED UMICRO #### [facility] [address] [place] [address] Dr. Ashlie PruettJbqrhOZW2-2Tntcbi9-3Faz City HospitalCominsight surgical hospital on above:Performed By: #### OBED UMICRO #### [facility] [address] [place] [address] Dr. Ashlie BhaktaBC0-2AbnormalNONE SEENBellevue Hospital on above: Performed By: #### ERUR, UMICRO #### [facility] [address] [address] [address] Ashlie VelásquezASTPRESENTAbnormalNONE SEENBellevue Hospital on above:Performed By: #### ERUR, UMICRO #### [facility] [address] [address] [address] Ashlie Hutchinson RIGHT 1 OR 2 VWS WITH PELVISon [id number] RIGHT 1 OR 2 VWS WITH PELVISUnTriHealth [facility] Department of Radiology [address] [place] [id number] Patient Name: MITZI MACIAS : 1970 Sex: F Age: Race: White Pt. Location: Patient Status: O Ordered Date: 07/20/2020 1:45:00 PM Completed Date: 07/20/2020 01:57 PM Requesting Provider: LIZ EISENBERG Attending Provider: LIZ EISENBERG Report Copy To: MCKAYLA BLAS Signs & Symptoms: M25.551 Pain in right hip I10 History: [place] Comments: evaluate Exam: HIP RIGHT 1 OR [...] MRI. Electronically signed: Pipo Acevedo. Transcribed by: [id number], User Resident: Electronically Signed by: PIPO ACEVEDO @ 07/20/2020 03:45 [facility] HospitalComment on above:Order Comment: evaluate Vital Signs Date TimeVital SignValuePerforming XhqgtlsguVyqwwvdc37-58-0962 17:58-0400Body txcaxu857.1 cmLisa Aichholz BLENDING COORDINATOR-C Work Phone: [phone]10-22-2025 17:58-0400 Body mass index (BMI) [Ratio]61 kg/m2Lisa Aichholz BLENDING COORDINATOR-C Work Phone: [phone]10-22-2025 17:58-0400 Body xabaovqeuax86.1 [degF]Mckayla Aichholz BLENDING COORDINATOR-C Work Phone: [phone]10-22-2025 17:58-0400 Body iiszuf439.18 kgLisa Aichholz BLENDING COORDINATOR-C Work Phone: [phone]10-22-2025 17:58-0400 Diastolic blood lirttsxw22 mm[Hg]Mckayla Aichholz BLENDING COORDINATOR-C Work Phone: [phone]10-22-2025 17:58-0400 Heart rate84 /minLisa Aichholz BLENDING COORDINATOR-C Work Phone: [phone]10-22-2025 17:58-0400 Respiratory rate20 /minLisa Aichholz BLENDING COORDINATOR-C Work Phone: [phone]10-22-2025 17:58-0400 SaO2% (BldA) [Mass fraction]90 %Mckayla Aichholz BLENDING COORDINATOR-C Work Phone: [phone]10-22-2025 17:58-0400 Systolic blood euqsjhjo250 mm[Hg]Mckayla Aichholz BLENDING COORDINATOR-C Work Phone: [facility]09-29-2025 15:37-0400 Body sraysuzrzat86.1 [degF]Mckayla Harshadholz BLENDING COORDINATOR-C Work Phone: [phone]-[facility]09-29-2025 15:37-0400 Diastolic blood yghzndqb39 mm[Hg]Mckaylataryn Patriciaholz BLENDING COORDINATOR-C Work Phone: [phone]09-29-2025 15:37-0400 Heart rate81 /minLisa Aichholz BLENDING COORDINATOR-C Work Phone: [phone]09-29-2025 15:37-0400 Respiratory rate20 /minLisa Aichholz BLENDING COORDINATOR-C Work Phone: [phone]09-29-2025 15:37-0400 SaO2% (BldA) [Mass fraction]92 %Mckayla Harshadholz BLENDING COORDINATOR-C Work Phone: [phone] [place], [place] [address]09-29-2025 15:37-0400 Systolic blood jheixill488 mm[Hg]Mckayla Patriciaholz BLENDING COORDINATOR-C Work Phone: [phone]-[facility]07-24-2025 09:48-0400 Body faqmix307.2 Reji Souza MD Work Phone: [facility] CenterGqyywddhtv06-43-3518 09:48-0400Body mass index (BMI) [Ratio]56.38 kg/q4IuxkfRain Souza MD Work Phone: [facility] CenterUduyesgwwf30-26-8062 09:48-0400Body .29 kgRain Souza MD Work Phone: [facility] CenterKalbwsvavl70-73-6355 09:48-0400Diastolic blood svdcexlo13 mm[Hg]Rain Souza MD Work Phone: [facility] CenterUgkqudzlnp61-36-8868 09:48-0400Heart rate72 /min Rain Souza MD Work Phone: noMer[facility] John'sAwdjbeqirr14-00-4151 09:48-0400Respiratory rate16 /minRain Souza MD Work Phone: noMer[facility] St. John'sDvoqfmzxpe97-66-9345 09:48-8765YxY1% (BldA) [Mass fraction]84 %Rain Souza MD Work Phone: [facility] CenterVhbumjudzp63-28-3566 09:48-0400Systolic blood qmaccaym954 mm[Hg]Rain Souza MD Work Phone: [facility] CenterVubuqrqgmm31-44-4761 18:11-0400Body mass index (BMI) [Ratio]58.64 kg/m2Lisa Chetz BLENDING COORDINATOR Work Phone: [facility] CenterNvptglpvss03-17-2784 18:11-0400Body temperature 98.49 [degF]Mckayla Wan BLENDING COORDINATOR Work Phone: [facility] CenterNotxsgucom29-27-2014 18:11-0400Body .83 kgLisa Chetz BLENDING COORDINATOR Work Phone: [facility] CenterGcephwvmdu01-90-5159 18:11-0400Diastolic blood sxolbtoq95 mm[Hg]Mckayla Wan BLENDING COORDINATOR Work Phone: [facility] CenterCfpzpylhjb22-08-9561 18:11-0400Heart rate81 /min Mckayla Wan BLENDING COORDINATOR Work Phone: [facility] CenterEyfplfblca39-25-2579 18:11-0400Respiratory rate20 /minLisa Chetz BLENDING COORDINATOR Work Phone: [facility] CenterByovflnpsk06-42-3097 18:11-7509YnH2% (BldA) [Mass fraction]90 %Mckayla Wan BLENDING COORDINATOR Work Phone: [facility] CenterJodbmdjbaw84-96-6578 18:11-0400Systolic blood wuadkitj900 mm[Hg]Mckayla Wan BLENDING COORDINATOR Work Phone: [facility] CenterWnkwupozqf37-14-1351 10:19-0400Body temperature 98.01 [degF]Mckayla Rosenbergz BLENDING COORDINATOR Work Phone: [facility] CenterNpisjwngbn71-43-4227 10:19-0400Diastolic blood lwewwrqr54 mm[Hg]Mckayla Harshadholz BLENDING COORDINATOR Work Phone: [facility] CenterMekrysytjy50-30-6268 10:-0Heart rate71 /min Mckayla Harshadholz BLENDING COORDINATOR Work Phone: [facility] CenterNpzfovlaga15-74-5986 10:-399Respiratory rate20 /minLisa Harshadholz BLENDING COORDINATOR Work Phone: [facility] CenterUmmeakphdr92-53-3809 10:9138KmU0% (BldA) [Mass fraction]88 %Mckayla Rosenbergz BLENDING COORDINATOR Work Phone: [facility] CenterOdgjchofxz43-62-5558 10:-399Systolic blood fwlcaylr874 mm[Hg]Mckayla Harshadholz BLENDING COORDINATOR Work Phone: [facility] CenterKhriclgbuu95-56-4997 14:11-0400Body ijjzrn681.2 cmLisa Harshadholz BLENDING COORDINATOR Work Phone: [facility] CenterCblqzhrgym70-76-5856 14:11-0400Body mass index (BMI) [Ratio]56.51 kg/m2Maria De Jesussa Harshadholz BLENDING COORDINATOR Work Phone: [facility] CenterEzxxffjjye32-40-8056 14:11-0400Body temperature 98.71 [degF]Mckayla Harshadholz BLENDING COORDINATOR Work Phone: [facility] CenterLxyveppfil59-61-2640 14:11-0400Body .66 kgLisa Juanjosehholz BLENDING COORDINATOR Work Phone: [facility] CenterCbqokrwkug18-09-1914 14:11-0400Diastolic blood mm[Hg]Mckayla Harshadholz BLENDING COORDINATOR Work Phone: [facility] CenterIotjejtypx61-78-7615 14:11-0400Heart rate75 /min Mckayla Harshadholz BLENDING COORDINATOR Work Phone: [address] [address]Qfkjdwyojw25-51-6876 14:11-0400Respiratory rate18 /minMaria De Jesus Wan BLENDING COORDINATOR Work Phone: [facility] CenterFngxgabxey32-12-3062 14:11-4638TnP3% (BldA) [Mass fraction]90 %Mckayla Wan BLENDING COORDINATOR Work Phone: noMercy Hospital St. John'sAdiddtwebu09-86-8206 14:11-0400Systolic blood fvwaqcxq376 mm[Hg]Mckayla Sowdona BLENDING COORDINATOR Work Phone: [facility] CenterMmjvheaiqb87-94-6345 11:21-0400Body icajvp368.2 Reji Souza MD Work Phone: [facility] CenterNakrbcaytc71-90-9529 11:21-0400Body mass index (BMI) [Ratio]55.91 kg/i5PnybcRain Souza MD Work Phone: [address] [place], [place] [address]Vbfqfedvel19-28-8358 11:21-0400Body uyzefm962.93 kgRain Souza MD Work Phone: [facility] CenterFqfhtayjna44-16-0124 11:21-0400Diastolic blood ucmcxqem77 mm[Hg]Rain Souza MD Work Phone: [address] [place], [place] [address]Cnswstcrpj66-13-2241 11:21-0400Heart rate70 /min Rain Souza MD Work Phone: [facility] CenterCenedzvipm63-04-2955 11:21-0400Respiratory rate16 /minRain Souza MD Work Phone: [address] [place], [place] [address]Xwparvkxsc39-34-8638 11:21-9629ScX3% (BldA) [Mass fraction]91 %Rain Souza MD Work Phone: [address] [place], [place] [address]Tcsidekybm89-33-3886 11:21-0400Systolic blood vhyavaux195 mm[Hg]Rain Souza MD Work Phone: [address] [place], [place] [address]Ttrcdefvek69-17-8220 17:44-0500Body mass index (BMI) [Ratio]57.31 kg/m2Mckayla Blas BLENDING COORDINATOR Work Phone: [facility] CenterMfoajgeeru91-63-5657 17:44-0500Body temperature 98.01 [degF]Mckayla Sowdona BLENDING COORDINATOR Work Phone: [facility] CenterMjciuguwlt02-42-6779 17:44-0500Body ladlxr202.97 kgMckayla Juanjosecayetanodallin BLENDING COORDINATOR Work Phone: [facility] CenterXdoxvbsisg80-34-1815 17:44-0500Diastolic blood nnjwtiql83 mm[Hg]Mckayla Wan BLENDING COORDINATOR Work Phone: [facility] CenterMdiyzwumvg83-40-7300 17:44-0500Heart rate83 /min Mckayla Wan BLENDING COORDINATOR Work Phone: [facility] CenterZslckharjy69-23-6465 17:44-0500Respiratory rate18 /minMckayla Blas BLENDING COORDINATOR Work Phone: [facility] CenterHldyngiexk13-47-1635 17:44-9076TnE4% (BldA) [Mass fraction]91 %Mckayla Patriciadallin BLENDING COORDINATOR Work Phone: [facility] CenterBuykrgdoci98-14-0681 17:44-0500Systolic blood agcogwjv115 mm[Hg]Mckayla Patriciadallin BLENDING COORDINATOR Work Phone: [facility] CenterQdmwfsmfxg36-50-6338 10:00-0500Blood Pressure LocationPaalexezra ARAUZ [facility] [address] 511702-04-2024 10:00-0500Diastolic blood fspraoob68 mm[Hg]Elbert ARAUZ [facility] [address] [address]702-04-2024 10:00-0500Heart rate76 /minElbert ARAUZ [facility] [address] [address]702-04-2024 10:00-0500Systolic blood mm[Hg]Elbert ARAUZ [facility] [address] [address]891-19-2024 10:20-0500Body bgzpeh505.2 Reji Souza MD Work Phone: [address] [place], [place] [address]Vvqyimcdzu29-57-2729 10:20-0500Body mass index (BMI) [Ratio]56.7 kg/o4IlylyRain Souza MD Work Phone: [address] [place], [place] [address]Mbkxrimldb56-41-5909 10:20-0500Body oikncw072.2 kgRain Souza MD Work Phone: [address] [place], [place] [address]Obhmeshfji86-40-3407 10:20-0500Diastolic blood oneysjqf93 mm[Hg]Rain Souza MD Work Phone: [address] [place], [place] [address]Xrhcdaqnmp00-01-2289 10:20-0500Heart rate72 /min Rain Souza MD Work Phone: [address] [place], [place] [address]Dwmedjhibc87-95-6058 10:20-0500Respiratory rate16 /minRain Souza MD Work Phone: [address] [address]Edshwgkiuq67-48-6910 10:20-0500Systolic blood hucrnjcs599 mm[Hg]Rain Souza MD Work Phone: [address] [place], [place] [address]Covvwyslgo60-94-9043 10:27-0400Body .1 Jamal Blas BLENDING COORDINATOR Work Phone: [facility] CenterZdbpczbake84-57-1686 10:27-0400Body mass index (BMI) [Ratio]61.01 kg/m2Mckayla Blas BLENDING COORDINATOR Work Phone: [facility] CenterAvwmrxlehj88-55-8859 10:27-0400Body temperature 98.49 [degF]Mckayla Blas BLENDING COORDINATOR Work Phone: [facility] CenterEjlnhzxxvz04-17-6392 10:27-0400Body wgvcej595.29 kgMckayla Blas BLENDING COORDINATOR Work Phone: [address] [address]Wnbnoaxdqf88-09-3120 10:27-0400Diastolic blood eoptknnk11 mm[Hg]Mckayla Blas BLENDING COORDINATOR Work Phone: noMer[facility] John'sZxphrnkvcw87-70-5349 10:27-0400Heart rate77 /min Mckayla Blas BLENDING COORDINATOR Work Phone: [facility] CenterFowhzweyqp75-06-9165 10:27-0400Respiratory rate19 /minMckayla Blas BLENDING COORDINATOR Work Phone: [facility] CenterPjcbakjjcb93-42-4973 10:27-1733GfY8% (BldA) [Mass fraction]92 %Mckayla Blas BLENDING COORDINATOR Work Phone: [facility] CenterReybmgqesl30-96-7873 10:27-0400Systolic blood qlylpubt778 mm[Hg]Mckayla Blas BLENDING COORDINATOR Work Phone: [facility] CenterKpzxqejwon10-04-0014 15:00-0400Body yxlxty391.18 cmAbdul Tico Other [employer] Other [phone] 15:00-0400Body alsvzskqyah99.6 [degF]Stephanie Tico Other [employer] Other 787504-41-9275 15:00-0400Diastolic blood rncmfxyb81 mm[Hg] Stepahnie Tico Other [employer] Other 08-31-2022 15:00-0400Respiratory rate20 /minAbdul Tico Other [employer] Other [phone] 15:00-0048QfA8% (BldA) [Mass fraction]91 % Stephanie Tico Other [employer] Other 364216-10-9827 15:00-0400Systolic blood xmqdvymq300 mm[Hg] Stephanie Tico Other [employer] Other 08-15-2022 09:20-0400Body hrnkpe329.18 cmAbdul Tico Other [employer] Other 08-15-2022 09:20-0400Body wzrvaachodg49.5 [degF]Stephanie Tico Other [employer] Other 08-15-2022 09:20-0400Diastolic blood fqyeunlg31 mm[Hg] Stephanie [facility] Other 08-15-2022 09:20-0400Respiratory rate20 /minAbdul Tico Other [employer] Other 08-15-2022 09:20-0009WbF6% (BldA) [Mass fraction]91 % Stephanie Tico Other [employer] Other 08-15-2022 09:20-0400Systolic blood tyukwprw435 mm[Hg] Stephanie Tico Other [employer] Other 08-01-2022 10:24-0400Blood Pressure LocationPapsychiatricezra ARAUZ [facility] 08-01-2022 10:24-0400Diastolic blood luvxvgvr76 mm[Hg] Elbert ARAUZ [facility] 08-01-2022 10:24-0400Heart rate70 /minPapsychiatricezra ARAUZ [facility] 08-01-2022 10:24-0400Respiratory rate16 /minPatrick REGLA [facility] 08-01-2022 10:24-0400Systolic blood xdgcqubf835 mm[Hg] Elbert ARAUZ [facility] Encounters Encounter DateEncounter TypeCare ProviderFacilityStart: 22-69-0616ufwfhckmnwBbau Jo Aichholz SHOP SUPERINTENDENT-CNPFacility:[facility]: 05-22-2025 ambulatoryLance Huey Urias DPMFacility:[facility]tart: 05-18-2025 End: 96-63-2787lbpyslvmthVzyo Jo Aichholz SHOP SUPERINTENDENT-CNPFacility:[facility]Start: 04-29-2025 End: 65-15-7197pmnxvepnvuJilj J Aichholz BLENDING COORDINATOR-C Work Phone: -[facility] ClydeStart: 04-29-2025 End: 49-22-7816Aktpdoi encounter procedureLisa Krystal Blas BLENDING COORDINATOR-C-[facility] Work Phone: Start: 04-23-2025 End: 78-94-0374sqrmpmczzzAsxyye Nas Rojas SHOP SUPERINTENDENT-CNPFacility:[facility]Start: 04-17-2025 End: 67-33-0446ftvdwwacljSlej Jo Aichholz SHOP SUPERINTENDENT-CNPFacility:[facility]tart: 04-06-2025 End: 08-29-9998vujfcxkinsPipj J Aichholz BLENDING COORDINATOR-C Work Phone: [facility] Work Phone: Start: 04-06-2025 End: 76-41-7912Pfmbknx encounter procedureLisa Krystal Blas BLENDING COORDINATOR-C-[facility] Work Phone: Start: 93-81-0657Ifjcmlv encounter procedureMckayla Blas BLENDING COORDINATOR-C Work Phone: [facility]: 13-32-8924Dsz- patient / Non-visitLanashley Urias DPM-[facility] Work Phone: Start: 82-51-4249Veu-patient / Non-visitPrice Ramsey DO-[facility] Work Phone: Start: 27-25-2709ejmidvrpvgRfbjva Nas Bob SHOP SUPERINTENDENT-[employer]CHANIC [facility]Start: 03-23-2025 End: 81-94-7780nvgemuwujsPdfeck Nas Bob SHOP SUPERINTENDENT-CNPFacility:[facility]layStart: 03-11-2025 End: 84-68-9446ugndonwgtkMlqnf Huey Urias DPMFacility: [facility]trStart: 03-09-2025 End: 67-91-1658DgjqjbChld Aichholz NP Work Phone: [facility] FMComment on above:Tobacco user; Encounter for smoking cessation counselingStart: 01-29-2025 End: 11-84-7146Kwrfka Jack Souza MD Work Phone: n[facility] ENDOCRINOLOGYStart: 01-29-2025 End: 27-09-5966Smqkjjashley Souza MD Work Phone: [facility] ENDOCRINOLOGYStart: 01-29-2025 End: 11-97-5697Dwseeresh Result EncounterGeneric External Data ProviderNOMS External Department UnsolicitedStart: 01-29-2025 End: 21-82-6491kcxmsgvhyjOZXHHRichard Negron AvailableStart: 01-29-2025 End: 27-33-2195Twtmaw outpatient visit 25 minutesRain Souza MD Work [...] index (BMI) of50.0 to 59.9 in adult ([facility])Start: 01-26-2025 End: 26-42-2991tonfkxihlyUORY AICHHOLZNot AvailableStart: 01-26-2025 End: 52-41-0625Yoqhwcr encounter Marcela Blas NP Work Phone: noms CWM FMComment on above:Encounter for subsequent annual wellness visit (AWV) in Medicare patient (Primary Dx); Mixed hyperlipidemia ; Type 2 diabetes mellitus with complication, with long-term current use of insulin (HCC); Bilateral lower extremity edema; Gastro-esophageal reflux disease without esophagitis; Chronic diastolic heart failure ([facility]); Primary hypertension ; Pulmonary hypertension ([facility]); Diabetic polyneuropathy associated with type 2 diabetes mellitus ([facility]); Pulmonary emphysema, unspecified emphysema type ([facility]); Moderate persistent asthma without complication ([facility]); Insomnia; Non-seasonal allergic rhinitis, unspecified trigger; Type 2 diabetes mellitus with unspecified complications ([facility]); Anxiety and depression ; Antibiotic-induced yeast infection; Chronic obstructive pulmonary disease, unspecified (HCC); Hyperlipidemia, unspecified ; Vaginal yeast infection; Morbid (severe) obesity due to excess calories ([facility])Start: 01-06-2025 End: 43-40-9691umhgigzaxgQDYFRND [facility] Hospitaltart: 12-18-2024 End: 38-33-2747HxvzjpNoww Aichholz BLENDING COORDINATOR Work Phone: [facility] CWM FMComment on above:Hyperlipidemia, unspecified ; Tobacco user; Encounter for smoking cessation counselingStart: 12-09-2024 End: 75-69-5575Iipyfc Shirlene Blas BLENDING COORDINATOR Work Phone: noms CWM FMStart: 12-09-2024 End: 65-08-2632Sqbbsb Shirlene Blas NP Work Phone: [facility] CWM FMStart: 12-09-2024 End: 81-64-7119cpkxgkfntrYOYH AICCayetanoHOLZNot AvailableStart: 12-09-2024 End: 39-35-2685Edzxki outpatient visit 25 minutesMckayla Blas BLENDING COORDINATOR Work Phone: [facility] CW FMComment on above:Cellulitis of left lower extremity (Primary Dx); COPD exacerbation (CMS/HCC); Primary hypertension (CMS/HCC); Pulmonary hypertension (CMS/HCC); Morbid (severe) obesity due to excess calories ([facility]/HCC); Type 2 diabetes mellitus with complication, with long-term current use of insulin ([facility]); Anxiety and depression ([facility]); Fever, unspecified fever causeStart: 12-04-2024 End: 40-54-0490Rjchuswnr Result EncounterGeneric External Data ProviderNOMS External Department UnsolicitedStart: 12-04-2024 End: [id number] Result EncounterGeneric External Data ProviderNOIL External Department UnsolicitedStart: 10-27-2024 End: 18-64-5679djiqifheeaJCFD AICHHOLZNot AvailableStart: 10-27-2024 End: 10-24-9458Vmqvwz outpatient visit 25 minutesMckayla Blas BLENDING COORDINATOR Work Phone: noms [facility] FMComment on above:Primary hypertension (CMS/HCC) (Primary Dx); Diabetic polyneuropathy associated with type 2 diabetes mellitus ([facility]/HCC); Chronic diastolic heart failure ([facility]/HCC); Bilateral lower extremity edema; Morbid (severe) obesity due to excess calories ([facility]/HCC); Type 2 diabetes mellitus with complication, with long-term current use of insulin ([facility]/HCC); Anxiety and depression ([facility]/HCC); Cigarette nicotine dependence without complication; Encounter for screening mammogram for malignant neoplasm of breast; Insomnia; Non-seasonal allergic rhinitis, unspecified trigger; Type 2 diabetes mellitus with unspecified complications; Vitamin D deficiency, unspecified; Gastro-esophageal reflux disease without esophagitis; PAD (peripheral artery disease) ([facility]/HCC); Gastroesophageal reflux disease, unspecified whether esophagitis present; Venous ulcer of right leg ([facility])Start: 10-21-2024 End: 83-16-5608DyeezwGxzt Aichdallin BLENDING COORDINATOR Work Phone: noms CWM FMComment on above:Chronic obstructive pulmonary disease, unspecifiedStart: 10-08-2024 End: 69-55-8541Fodjrkbcj Result EncounterLisa Blas BLENDING COORDINATOR Work Phone: noms External Department UnsolicitedStart: 10-08-2024 End: 90-14-4704Bxjtebiqe Result EncounterLisa Blas BLENDING COORDINATOR Work Phone: noms External Department UnsolicitedStart: 10-08-2024 End: 82-32-8581Lgissy outpatient visit 25 Adolfo Souza MD Work [...] of50.0 to 59.9 in adultStart: 10-08-2024 End: 66-55-5895zbldzggkurWETIS F SABBAGHNot AvailableStart: 08-27-2024 End: 50-57-9248Vdbvdu outpatient visit 25 minutesMckayla Wan SCHAEFER Work [...] of insulin ([facility]); Tobacco user; Mixed hyperlipidemia ([facility]); Gout, unspecified cause, unspecified chronicity, unspecified site; Vitamin deficiency; Gastro-esophageal reflux disease without esophagitis; Edema, unspecified; Edema; Hyperlipidemia, unspecified ([facility]); Encounter for smoking cessation counseling; Venous ulcer of right leg ([facility]); Antibiotic-induced yeast infectionStart: 08-27-2024 End: 95-30-5331ujehzgmimsRVZZTaj Kendall AvailableStart: 08-27-2024 End: 27-29-5305Rprsqhwrz Result EncounterGeneric External Data ProviderNOMS External Department UnsolicitedStart: 08-27-2024 End: 23-38-9993Ueekshatn Result EncounterGeneric External Data ProviderNOMS External Department UnsolicitedStart: 08-08-2024 End: 34-07-0096ywiuhzqycwTGLTJClinton Memorial Hospitaltart: 07-17-2024 End: 59-14-4830NdhudcHxrb Aichholz NP Work Phone: noms CWM FMStart: 07-14-2024 End: 91-90-6396Djvyfa outpatient visit 25 Heena Blas NP Work Phone: noms CWM FMComment on above:Primary hypertension ([facility]) (Primary Dx); Diabetic polyneuropathy associated with type 2 diabetes mellitus ([facility]); Pulmonary emphysema, unspecified emphysema type ([facility]); Critical limb ischemia of right lower extremity ([facility]); PAD (peripheral artery disease) ([facility]); Gastroesophageal reflux disease, unspecified whether esophagitis present; Bilateral lower extremity edema; Venous ulcer of right leg ([facility]); Type 2 diabetes mellitus with complication, with long-term current use of insulin ([facility]); Tobacco user; Encounter for smoking cessation counseling; Kidney stone; Adrenal mass 1 cm to 4 cm in diameter ([facility]); Radiculopathy, lumbar region; Non-seasonal allergic rhinitis, unspecified trigger; Type 2 diabetes mellitus with unspecified complications ([facility])Start: 07-14-2024 End: 04-93-8255umfckzgjnoZMTC AICHHOLZNot AvailableStart: 07-05-2024 End: 24-37-3476JenwinJxmv Aichholz SILVANO Work Phone: noms [facility] FMComment on above:Bilateral lower extremity edemaStart: 06-11-2024 End: 94-18-2349wkgcebivpzUovzrjc R REGLAFacility:EU SanduskyStart: 06-11-2024 End: 78-53-4777Mutbirr encounter procedurePanaomy ARAUZ [facility] [place] Start: 05-27-2024 End: 48-57-6920Ctoadt Jack Souza MD Work Phone: noms ENDOCRINOLOGYStart: 05-27-2024 End: 05-78-5257Eoppbgyousif Souza MD Work Phone: noms ENDOCRINOLOGYStart: 05-27-2024 End: 15-37-6331nosiycomxdGFBGG F SABBAGHNot AvailableStart: 05-27-2024 End: 66-29-9969Adyfig outpatient visit 25 minutesRain Souza MD Work Phone: noms ENDOCRINOLOGYComment on above:Type 2 diabetes mellitus with hyperglycemia, with long-term current use of insulin (CMS/[facility]) (Primary Dx); Encounter for dietary consultation; Vitamin D deficiency; Primary hypertension (CMS/HCC); Insulin long-term use (CMS/HCC); Hyperlipemia, mixed (CMS/HCC); Microalbuminuria; Class 3 severe obesity due to excess calories with serious comorbidity and body mass index (BMI) of50.0 to 59.9 in adult (CMS/HCC)Start: 05-12-2024 End: 96-34-5708Wlrkyuodb Result EncounterGeneric External Data ProviderNOMS External Department UnsolicitedStart: 05-12-2024 End: 93-04-6075Zbqivjcfw Result EncounterGeneric External Data ProviderNOMS External Department UnsolicitedStart: 99-00-4417fruliikhpsOATUBGJO E SILVIA Facility:EU [place]Start: 04-24-2024 End: 43-73-2297Jrdeqwjzj Result EncounterGeneric External Data ProviderNOMS External Department UnsolicitedStart: 04-24-2024 End: 24-00-1569Huxiqmhcl Result EncounterGeneric External Data ProviderNOMS External Department UnsolicitedStart: 04-14-2024 End: 23-74-0793Dlerff flowsheetMckayla Blas BLENDING COORDINATOR Work Phone: noms CWM FMStart: 04-14-2024 End: 61-56-5464Hgdpzq flowsheetMckayla Blas BLENDING COORDINATOR Work Phone: noms CWM FMStart: 04-14-2024 End: 21-20-8415Abjrid outpatient visit 25 minutesLisa Blas BLENDING COORDINATOR Work Phone: noms CWM FMComment on above:Primary [...] Tobacco user; Hyperpigmentation of skinStart: 04-14-2024 End: 11-16-0405dfaagifklhMOJM AICHRAVIZNot AvailableStart: 04-05-2024 End: 94-57-7737VgvqkmKkzt Aichholz BLENDING COORDINATOR Work Phone: noms CWM FMComment on above:Hyperlipidemia, unspecified (CMS/HCC); Bilateral lower extremity edemaVitamin D deficiency, unspecifiedStart: 62-16-0751Uyzamwc encounter Mary Ann Souza MD Work Phone: NOMS HealthcareStart: 12-14-2023 End: 00-87-2865Yssredhnj Result EncounterLisa Harshadholz BLENDING COORDINATOR Work Phone: noms External Department UnsolicitedStart: 12-14-2023 End: 74-11-4464Iwtrzdfhy Result EncounterLisa Harshadholz BLENDING COORDINATOR Work Phone: noms External Department UnsolicitedStart: 08-31-2023 End: 90-29-7207Ahdywissz Result EncounterAmy Cari MAYERS Work Phone: noms External Department UnsolicitedStart: 08-31-2023 End: 59-65-5924Avphklomb Result EncounterAmy Cari MAYERS Work Phone: noms External Department UnsolicitedStart: 08-17-2023 RefillLisa Patriciaholz BLENDING COORDINATOR Work Phone: noms CWM FMComment on above:Vaginal yeast infection (Primary Dx)Start: 97-80-3576ThxztnOufp Aichholz BLENDING COORDINATOR Work Phone: NOIE CWM FMComment on above:Type 2 diabetes mellitus with unspecified complications (CMS/HCC); Edema, unspecified; EdemaStart: 08-63-8980sxnstnzqyzWMFEQTMNDZLC LAKSHMIPATHY .Facility:O8Ivydv: 12-05-2022 End: 62-73-3378Mvnpftrmmr and management of inpatientJESSICA ALONDRA .Facility:H1 Start: 11-23-2022 End: 54-27-9862rlbbjrfmgxRAC MCKAYLA AICHHOLZFacility:V1Tlsmm: 11-22-2022 End: 91-62-5322tifaquymjfAJA MCKAYLA AICHHOLZFacility:K5Jppib: 11-17-2022 End: 60-93-5687tviakirkmgOAZCIUB HALKER .Facility:E5Eouyr: 11-15-2022 End: 47-01-8436Ywamwph encounter procedureJENNIFER E SILVIA [facility] start: 10-05-2022 End: 36-42-3126kcgrwxzifaYWZXLJ DIAB .Facility:K9Heopf: 09-21-2022 End: 42-67-2830cdbwyeieoiAHA MCKAYLATaryn BLASFacility:L2Tdiqt: 13-38-1338ezkflpljku COMFORT CULLENFacility:M9Qwoat: 08-24-2022 End: 10-89-0662xrgegnxvpqOG CHAPARRO S MORTENSEN .Facility:E5Dpseu: 08-21-2022 End: 75-32-1344zcxuudzgpxBSPHE D [facility]ITALFac[facility]:R2Upmsx: 07-27-2022 End: 71-39-3111svvsywobmjTCRC TAMLYN .Facility:B7Ccyzd: 07-18-2022 End: 67-43-2427utiqdxtoptVFLR TAMLYN .Facility:W9Mhucb: 07-18-2022 End: 02-61-3881ifijzqzbrlJXVSY D [facility]ITALFac[facility]:O1Suagc: 07-06-2022 End: 62-30-3474uzsmsihcatCKR MCKAYLA WANFacility:H6Elmzk: 05-11-2022 End: 05-01-8760fvdaqqdqmxOKJV VALENZUELA .Facility:A1Bcvix: 04-25-2022 End: 53-03-4018rwkrkkgupcFW CHAPRARO S MORTENSEN .Facility:I6Hyfgb: 04-20-2022 End: 24-54-5889avyfsfybidFINK VALENZUELA .Facility:M3Rmagt: 03-08-2022 End: 77-56-0051ktjyauxqmxAwlja Tico Other [employer] Other Start: 11-62-8816Jnfgta outpatient visit 15 minutes Stephanie QadirFPG NephrologyStart: 03-03-2022 End: 50-23-2293rcaoxrqvyiONN MCKAYLA Judicility:T5Glijl: 02-20-2022 End: 54-58-1722nzxsqwbeilKuyrb Tico Other [employer] Other Start: 54-75-0975Laqcre outpatient new 45 minutesAbdul QadirFPG NephrologyStart: 02-06-2022 End: 28-61-3228Ufcjsim encounter procedureElbert Mahnaz ARAUZ [facility] [place] start: 01-19-2022 End: 39-82-7623uswjnrlsfoELWA SOLIS .Facility:M5Wtghz: 12-24-2021 End: 24-46-5742raowkjrwblERPIE PARKERFacility:L6Snhke: 08-26-2020 End: 22-51-5829Pqlrsjh encounter procedureVITHAL GABINODGEFacility:UTMCStart: 10-30-2019 End: 03-64-3252Olkjvycab department patient visitDOAdams-Nervine Asylumtart: 10-30-2019 End: 03-47-8425Tyzsrqfib department patient visitTriHealth [facility] Emergency DepartmentStart: 58-82-6687Uiqskjnrhxab stateAbdul Tico Other rt zulily Other Procedures DateProcedureProcedure DetailPerforming ClinicianStart: 17-89-3926GN ECHO DOPPLER COMPLETEGeneric External Data ProviderStart: 97-29-8311Vdph bld gluc mntr dev cleared fda spec home useAhart Souza MD Work Phone: Start: 22-58-9090TNODE CULTURE 2Generic External Data ProviderStart: 51-12-1559WODLO CULTURE 1Generic External Data ProviderStart: 32-70-8511Elrf bld gluc mntr dev cleared fda spec home useRain Souza MD Work Phone: Start: 76-81-2813LIK UA (CLEAN/CATCH) MICROSCOPIC IF INDICATELisa Aichholz BLENDING COORDINATOR Work Phone: Start: 32-64-4419OWO CBC WITH AUTO DIFFGeneric External Data ProviderStart: 94-49-9865Acfp bld gluc mntr dev cleared fda spec home useRain Souza MD Work Phone: Start: 68-99-0356KU LUMBAR SPINE WO CONGeneric External Data ProviderStart: 80-31-7970PB ABDOMEN PELVIS W CONGeneric External Data ProviderStart: 30-26-4366NXV CREATININEGeneric External Data ProviderStart: 23-56-9668SNDOFAAJI BLOOD PRESSUREGeneric External Data ProviderStart: 43-46-5108CR TOMOSYNTHESIS SCREENING Chyna Blas NP Work Phone: Start: 13-67-5565NpubgkndqalBiswj Sabbagh MD Work Phone: Start: 48-43-4015JGJWV CULTURE 2Generic External Data ProviderStart: 09-45-5517SNRBN CULTURE 1Generic External Data ProviderStart: 15-02-5382PBF 12-LEADAmy Cari MAYERS Work Phone: Start: 23-15-7152KozycupdnvcEobc Aichholz NP Work Phone: Start: 87-46-7270Pzbenhawpdl observation [Identifier] in Cervix by Cyto stainMckayla Blas NP Work Phone: H/O: hysterectomyPatrick [facility] Laparoscopic cholecystectomyPatrick [facility] Operative procedure on footPatrick [facility] Plan of Treatment DateCare ActivityDetailAuthorStart: 02-01-2026 End: 14-92-1956Jzllbpi encounter procedureNOMS CWM FMStart: 07-21-2026Medicare Annual Wellness (AWV)Medicare Annual Wellness (AWV)NOMS HealthcareStart: 19-77-2354Juqvb screening for proteinDiabetes: Urine Protein ScreeningNOMS HealthcareStart: 26-13-8198Blmfftnuo for malignant neoplasm of colonNOMS HealthcareStart: 70-73-9672Skammqtx screeningDiabetes: Retinopathy ScreeningNOMS HealthcareStart: 05-28-2025 End: 36-58-0367Xzztzjm encounter procedureNOELLIS [facility] ENDOCRINOLOGYStart: 05-13-2025 Glaucoma screeningDiabetes: Retinopathy ScreeningJohn J. Pershing VA Medical CenterStart: 26-40-7051Lehldcggmu A1c measurementDiabetes: Hemoglobin O6GQHEUJohn J. Pershing VA Medical Center Start: 04-29-2025 End: 07-61-1458Fsdodkt encounter procedureNOINTEGRIS [facility] FMStart: 57-85-5567Twawebncc vaccinationFILLMORE COMMUNITY MEDICAL [facility]ENTER HealthcareStart: 01-28-2025 End: 15-42-3059Dwneual encounter dtuhamcvg38/23/2025 10:50 AM EDT Office Visit [facility] END[facility] [address] [place] [address] Rain Souza MD [address] [place] [address] [facility] ENDOCRINOLOGYStart: 01-26-2025 End: 50-06-1561Hbvupcm encounter /21/2025 6:00 PM EDT [facility] [address] [place] [address] Mckayla Blas, BLENDING COORDINATOR [address] [place] [address] [facility] FMStart: 07-11-2025Medicare Annual Wellness (AWV) Medicare Annual Wellness (AWV)[facility] HealthcareStart: 39-96-3051Dvguxzuttf A1c measurementDiabetes: Hemoglobin S1NOWZVJohn J. Pershing VA Medical CenterStart: 12-15-2024 End: 57-44-5311GK Breast - bilateral ScreeningBilateral screening mammogram Imaging Routine Encounter for screening mammogram for malignant neoplasm of breast Expected: 12/15/2024 (Approximate), Expires: 12/27/2025[facility] Work Phone: Comment on above:Expected: 12/15/2024 (Approximate), Expires: 12/27/2025Start: 39-75-6699Ybgsbcoiu for malignant neoplasm of breast MammogramJohn J. Pershing VA Medical CenterStart: 56-84-0348Jsuzu screening for proteinDiabetes: Urine Protein ScreeningFILLMORE COMMUNITY MEDICAL CENTER HealthcareStart: 10-27-2024 End: 19-00-2934Pnngwkk encounter efzvzarbm56/21/2025 2:00 PM EDT Office Visit [facility] FM [address] [place] [address] Mckayla Blas, BLENDING COORDINATOR [address] [place] [address] [facility] FMStart: 10-08-2024 End: 28-43-9559Oyhplgq encounter hkfozjxyw53/02/2025 11:20 AM EDT Office Visit [facility] [address] [place] [address] Rain Souza MD [address] [place] [address] [facility]CRINOLOGYStart: 08-27-2024 End: 36-63-9269Yzzieom encounter dnwuzypzl97/19/2025 5:30 PM EST Office Visit [facility] [address] [place] [address] Mckayla Blas, SILVANO [address] [place] [address] [facility] FMStart: 08-27-2024 End: 023317-zalwujnkkjusbe D3 [Mass/volume] in Serum or PlasmaVitamin D 25 hydroxy Lab Routine Vitamin deficiency Expected: 08/27/2024 (Approximate), Expires: 08/27/2025NOIL HealthcareComment on above:Expected: 08/27/2024 (Approximate), Expires: 08/27/2025Start: 40-68-4609Bhmrzjenmu A1c measurement Diabetes: Hemoglobin U0GORXIMercy Hospital St. John'sStart: 08-27-2024 End: 70-52-7919Wkmrcyi function 2000 panel - Serum or PlasmaHepatic function panel Lab Routine Hyperlipidemia, unspecified ([facility]/HCC) Expected: 08/27/2024 (Approximate), Expires: 08/27/2025[facility] HealthcareComment on above:Expected: 08/27/2024 (Approximate), Expires: 08/27/2025Start: 08-27-2024 End: 18-65-0654Sgiev 1996 panel - Serum or PlasmaLipid panel Lab Routine Mixed hyperlipidemia ([facility]/HCC) Expected: 08/27/2024 (Approximate), Expires:08/27/2025 [facility] Healthcare Work Phone: Comment on above:Expected: 08/27/2024 (Approximate), Expires: 08/27/2025Start: 08-27-2024 End: 91-66-0282Tkbssowppshv/Creatinine panel in random UrineMicroalbumin / creatinine, urine ratio Lab Routine Primary hypertension ([facility]) Type 2 diabetes mellitus with complication, with long-term current use of insulin ([facility]) Expected: 08/27/2024 (Approximate), Expires: 08/27/2025[facility] Healthcare Comment on above:Expected: 08/27/2024 (Approximate), Expires: 08/27/2025Start: 08-27-2024 End: 52-19-8865Zphma [Mass/volume] in Serum or PlasmaUric acid Lab Routine Gout, unspecified cause, unspecified chronicity, unspecified site Expected: (Approximate), Expires: 08/27/2025[facility] HealthcareComment on above: Expected: 08/27/2024 (Approximate), Expires: 08/27/2025Start: 08-27-2024 End: 86-38-3778Djdbkwyqij complete panel - UrineUrinalysis with reflex microscopic (clean catch) Lab Routine Primary hypertension ([facility]) Type 2 d iabetes mellitus with complication, with long-term current use of insulin ([facility]) Tobacco user Gout, unspecified cause, unspecified chronicity, unspecified site Expected: 08/27/2024 (Approximate), Expires: 08/27/2025[facility] HealthcareComment on above:Expected: 08/27/2024 (Approximate), Expires: 08/27/2025Start: 08-26-2024 End: 29-46-5231Tnpmtui encounter cwkkgddyv72/18/2025 10:30 AM EST Office Visit [facility] [address] [place] [address] Rain Souza MD [address] [place] [address] [facility] ENDOCRINOLOGYStart: 07-14-2024 End: 22-24-3402Akqjwdn encounter ovdotdgvb61/06/2025 6:30 PM EST Office Visit [facility] [address] [place] [address] Mckayla Blas NP [address] [place] [address] [facility] FMStart: 07-14-2024 End: 93-85-6404Uuzxqos encounter fpuwripyt12/06/2025 10:10 AM EST Office Visit [facility] [address] [place] [address] Rain Souza MD [address] [place] [address] [facility] ENDOCRINOLOGYStart: 20-27-0885Pzgcdzjxr vaccinationInfluenza Vaccine (#1)NOMS HealthcareComment on above:Postponed from 03/09/2024 (Patient Refused)Start: 05-27-2024 End: 22-55-3277Ogbbjgy encounter iaczucniu70/19/2024 9:50 AM EST Office Visit [facility] [address] [place] [phone] Rain Souza MD [address] [place] [address] [facility] ENDOCRINOLOGYStart: 95-43-4813Bxtzvpkjsc A1c measurementDiabetes: Hemoglobin V6ZYRPK HealthcareStart: 05-15-2024 End: 33-06-5658Ssufv tvjggsejhnn44/07/2024 Abstract [facility] [address] [place] [address] Rain Souza MD [address] [place] [address] NOMS ENDOCRINOLOGYStart: 05-15-2024 End: 04-11-4831Krwwqlf encounter /07/2024 11:20 AM EST Office Visit [facility] [address] [place] [address] Rain Souza MD [address] [place] [address] [facility] ENDOCRINOLOGYStart: 04-17-2024 End: 46-15-6928Hmabmzx encounter pepifnkon65/10/2024 3:40 PM EDT Office Visit [facility] [address] [place] [address] Mckayla Blas, BLENDING COORDINATOR [address] [place] [address] [facility] FMStart: 04-14-2024 End: 37-17-8514Jbvpwpg encounter pbbjyboju77/07/2024 11:00 AM EDT Office Visit [facility] [address] [place] [address] Mckayla Blas, BLENDING COORDINATOR [address] [place] [address] ArrivedNOMS CW FMComment on above:ArrivedStart: 03-09-2024 Influenza vaccinationInfluenza Vaccine (#1)NOMS HealthcareStart: 02-19-2024 Hemoglobin A1c measurementDiabetes: Hemoglobin R0DETXG HealthcareStart: 68-45-1378Eryop screening for proteinDiabetes: Urine Protein ScreeningNOIL HealthcareStart: 18-04-3133Ijyltfdww for malignant neoplasm of breastMammogram [facility] HealthcareStart: 10-15-2023 End: 67-55-0885Zijenqc encounter opipbcoew42/08/2024 4:30 PM EDT Office Visit [facility] [address] [place] [address] Mckayla Blas, BLENDING COORDINATOR [address] [place] [address] [facility] FMStart: 97-02-2506Latvwmglvb A1c measurement Diabetes: Hemoglobin H4PIDBV HealthcareStart: 63-91-4775Kadwppnb screening Diabetes: Retinopathy ScreeningNOIL HealthcareStart: 23-15-8939Hdbvhloby vaccinationFlu vaccine (Season Ended)[facility]: 10-07-2018 Screening for malignant neoplasm of cervixNOIL HealthcareStart: 01-89-0732Niyji panelLipid screenFostoria City Hospital: 74-22-2560Khpbksukp for malignant neoplasm of cervixHPV/CotestNOIL HealthcareStart: 95-19-7054Zknhozujy for malignant neoplasm of cervixCervical cancer [facility]: 74-62-5495TDeE/Tdap/Td vaccine (1 - Tdap)DTaP/Tdap/Td vaccine (1 - Tdap)[facility]: 88-68-6423GVB screeningHIV [facility]: 02-17-1971Medicare Annual Wellness (AWV)Medicare Annual Wellness (AWV)[facility] HealthcareStart: 42-51-5047Xzsskwzfl for malignant neoplasm of colonNOMS HealthcareBLOOD CULTURE 1BLOOD CULTURE 1 Lab Routine 12/04/2024 4:44 PM EDTNOMS HealthcareBLOOD CULTURE 2BLOOD CULTURE 2 Lab Routine 12/04/2024 5:28 PM EDTNOIL Healthcare Immunizations Immunization DateImmunizationNotesCare HggeuprmEupqioxk30-67-1518aiunhcwft, injectable, quadrivalent, contains preservativeMckayla Blas BLENDING COORDINATOR Work Phone: [facility]OMercy [facility] St. John'sMbrmwaxuty94-82-6254szymmnhea virus vaccine, unspecified formulationRain Souza MD Work Phone: [facility]01-11-2022SARS-CoV-2 (COVID-19) mRNA BNT-162b2 vaxJENNIFER SILVIA [facility]04-22-2021SARS-CoV-2 (COVID-19) mRNA BNT-162b2 vaxJENNIFER SILVIA [facility]04-02-2021SARS-CoV-2 (COVID-19) mRNA BNT-162b2 vaxJENNIFER SILVIA [facility]10-09-2017influenza virus vaccine, H5N1, A/ (national stockpile)Mckayla Blas BLENDING COORDINATOR Work Phone: [facility] [id number] virus vaccine, unspecified formulationRain Souza MD Work Phone: [facility]'[id number], unspecified formulationPapsychiatrick ARAUZ [facility] [place] [id number] polysaccharide vaccine, 23 valMunira Souza MD Work Phone: [facility] [id number] virus vaccine, H5N1, A/ (national stockpile)Mckayla Blas BLENDING COORDINATOR Work Phone: noMer[facility] John'[id number] virus vaccine, unspecified formulationRain Souza MD Work Phone: no[facility] John'[id number], unspecified formulationPatrick ARAUZ [facility] [facility]influenza virus vaccine, whole virusRain Souza MD Work Phone: [facility] John'sExqaejfrua45-30-0078afesygbzg, injectable, quadrivalent, contains preservativeLisa Aichholz BLENDING COORDINATOR Work Phone: [facility] CenterHkqwlmnapu66-94-3526mzqapwexo, wholePatrick ARAUZ [facility]07-[facility]-1998measles, mumps and rubella virus vaccineRain Souza MD Work Phone: [facility] Healthcare Payers DatePayer CategoryPayerPolicy [id number] 2024Medicare (Managed Care)[id number] Health [id number] [id number] 2019[place] [id number] 2018-Present [phone] [address] [place] [address]Medicaid [id number] 2013Medicare [id number] 2.16.840.1.155546.3.57[id number] 2.16.840.1.473127.3.57[id number] 2.16.840.1.923305.3.57[id number] 2..840.1.208201.3.579.[id number] 2..840.1.805942.3.57[id number] 2.840.1.728263.3.57[id number] 2.840.1.866637.3.579.[id number] 2.840.1.724059.3.579.[id number] 2.0.1.417760.3.57[id number] 2.840.1.404753.3.579.2.61246-72-8214Iqpilpo9643586 2.840.1.052446.3.57[id number] 2.840.1.115423.3.579.2.21951-65-6975Fuaepqv7794328 2.840.1.423898.3.579.2.98079-16-5437Umsyxwy4593123 2.840.1.928609.3.579.2.95773-84-1361Zcsvdkr6605317 2.840.1.902456.3.579.2.97740-18-3073Ywcagsz3434489 2.840.1.603339.3.579.[id number] 2.840.1.053951.3.579.2.26891-44-2825Fgpssof7390189 2.16.840.1.319592.3.579.2.08387-04-8429Pfnpyhj4338035 2.0.1.870038.3.579.2.3[id number] 2.840.1.117564.3.579.[id number] 2.840.1.700456.3.579.2.54041-50-2716Bwttimw8303568 2.0.1.198858.3.579.2.95110-39-8562Acofjyq8890147 2..1.983305.3.579.2.34838-37-8555Jhjsmer18903568 2..1.236847.3.579.2.42[id number] 2..1.153543.3.579.[id number] 2..1.332909.3.579.2.011594-08-8271Vbfyqjy3300472 2..1.151234.3.579.2.568282-18-1983Nieiuey3423522 2..1.981074.3.579.2.613019-24-7735Ogpptna4638107 2..1.524318.3.579.2.108222-98-0277Uiuypax6114479 2..1.707577.3.579.2.[id number] 2.0.1.621245.3.579.2.383892-67-2092Gxtzptb9740341 2.0.1.258319.3.579.2.942189-73-5588Aonarvn69474898 2.16.840.1.147228.3.579.2.92385-60-0872Ktwbwyh60786564 2.16.840.1.456982.3.579.2.68370-12-4142Gkmxlqh733075743 2.16.840.1.158935.3.579.2.96502-25-0892Nyqjhno752142563 2.16.840.1.115396.3.579.2.35125-57-3535Otjwphu780838420 2.16.840.1.404751.3.579.2.[id number] 2.16.840.1.387370.3.579.2.08733-10-5221Tmnscwr692462532 2.840.1.179141.3.579.2.98561-17-6374Jbffsad779110296 2.16.840.1.789804.3.579.2.76170-42-6314Kcnzdyc542195850 2.16.840.1.407325.3.579.2.91072-41-3564Qsdywfl165658784 2.16.840.1.980070.3.579.2.44839-43-2207Hkblbuh159546084 2.840.1.158252.3.579.2.55160-68-5159Zpyctbu849798069 2.16.840.1.737703.3.579.2.92296-58-2457Crfsyxi698358590 2.16840.1.668475.3.579.2.196 [id number] 1960Private Health [id number] 2.16.840.1.512341.19 [id number] [id number] [id number] Auto/[id number]-[id number] Social History DateTypeDetailFacilityStart: 02-17-2014 End: 62-17-4569Uvafvie smoking status NHISCurrent every day smokerFostoria City Hospital: 42-67-8690Kopmuhs of tobacco useCigarette SmokerFostoria City Hospital: 02-17-2014 End: 91-72-9535Fmzerfnjdn smoked current (pack per day) - ReportedFostoria City Hospital: 13-91-1246Kwqlvov intakeCurrent drinker of alcohol (finding)[facility]: 75-73-3833Ohhbjyb CommentRareMChillicothe Hospital: 44-73-6064Meq Assigned At BirthNot on fileChapel Hill, KYExposure to SARS-CoV-2 (event)Unable to assessPremier Healthart: 89-48-7340Rhlatry smoking statusSmoker (finding)[facility] start: 07-10-2023 End: 30-89-7418Ykq Assigned At BirthFemaleExec[facility] start: 11-15-2022 End: 84-42-3760Dhqnbfd smoking statusHeavy tobacco smoker (finding)[facility]: 07-10-2023 End: 33-72-9256Ajiaacp use and exposureSmokeless tobacco non-userNOMS Healthcare Start: 07-10-2023 End: 62-57-0251Gvnunik intakeLifetime non-drinker (finding)[facility] HealthcareWithin the last year, [...] drinks on 1 occasion?Less than monthlyNOMS HealthcareStart: 71-19-6766Ngb hard is it for you to pay [...] from your doctor or pharmacy [SILS]RarelyNOMS HealthcareSexFemale (finding)[facility] Start: 04-26-5126Sqq [facility] HospitalNEGATED: Highlighted [facility] Medical Equipment Procedure CodeEquipment CodeEquipment Original TextEquipment IdentifierDates [id number]: 27-57-6266LJQ TO TEST BLOOD SUGAR 4 TIMES [id number]: 07-07-2024 Functional Status GpdeOudjvchhppVcpaxtUqrcuqeu62-85-7595Dfiorce Health Questionnaire 2 item (PHQ- 2) [Reported][facility] CenterUbpeymvtqm48-83-3098Ifwdyjp falling or staying asleep, or sleeping too muchNot at all 01/26/2025 4:13 PM EDT Mychart, Generic Not at all [facility] CenterVljmremlvq86-91-6556Yuokbxi tired or having little energyNot at all 01/26/2025 4:13 PM EDT Mychart, Generic [facility] at [facility] CenterCordbmngnw11-80-5944Jhnh appetite or overeatingNot at all 01/26/2025 4:13 PM EDT Mychart, Generic Not at [facility] CenterGtewsnhoki68-33-7021Mbkpfcm bad about yourself-or that you are a failure or have let yourself or your family downNot at all 01/26/2025 4:13 PM EDT Mychart, Generic Not at [facility] CenterCprvxywulz05-46-2954Vdrenjb concentrating on things, such as reading the newspaper or watching televisionNot at all 01/26/2025 4:13 PM EDT Mychart, Generic Not at [facility] CenterOixipqkgbd21-59-8277 Moving or speaking so slowly that other people could have noticed. Or the opposite - being so fidgety or restless that you have been moving around a lot more than usualNot at all 01/26/2025 4:13 PM EDT Mychart, Generic Not at [facility] CenterIqikxfyowo44-41-9379Ytmueylz that you would be better off , or of hurting yourself in some wayNot at all 01/26/2025 4:13 PM EDT Mychart, Generic Not at [facility] CenterSdlybjhvfl75-13-5886Wbfru score [AUDIT-C]1 08/26/2024 6:13 PM EST Mychart, GenericJohn J. Pershing VA Medical CenterAekjtjcdle07-66-5178Tqu often do you have a drink containing alcohol?Monthly or less 08/26/2024 6:13 PM EST Mychart, Generic Monthly or lessJohn J. Pershing VA Medical CenterUqigivejxl87-94-3743Zea many standard drinks containing alcohol do you have on a typical day?1 or 2 08/26/2024 6:13 PM EST Mychart, Generic 1 or 2NOMS Acokzwhroe75-90-0010Hey often do you have 6 or more drinks on 1 occasion?Never 08/26/2024 6:13 PM EST Mychart, Generic [facility] 97-30-1362Oxevsfduzv StatusN/AExec[facility] of [facility]07-11-2024How difficult have these problems made it for you to do your work, take care of things at home, or get along with other people?Not difficult at all 01/17/2024 10:08 AM Marilyn Dunbar MA Not difficult at allJohn J. Pershing VA Medical CenterJmeckkucnx71-89-4914Gffgujh Health Questionnaire 2 item (PHQ-2) [Reported][facility] Medical CenterSdkxgijhwa20-42-6116Cnpiutu Health Questionnaire 2 item (PHQ-2) [Reported][facility] Medical CenterSvgthvwyom75-04-4922Fxjwgktawf StatusN/A[facility]08-01-2022Functional StatusN/AExec[facility] Clinical Notes 01-19-2022 to 04-06-2025 Note Date & QcdzCetgJqeopwyf27-27-9360 Evaluation note* Diagnosis Onset Date Resolution Status [...] use ofacuteOctober 2024 5:50pmVenous insufficiencyacuteOctober 2024 5:50pm [facility] Work Phone: 1(316) 366-444107-30-2025 NotePlease let her know her ECHO showed some improvement in the left side wall thickness, it was severely enlarged, now it is moderate. Important for good BP control to continue to improve this. Everything else looks good. Follow-up as planned in 6 months. Thanks![facility]07-24-2025 History of Present illness Narrative* Rain [...] 96, on lantus 58 units bid, lispro 9-54-36tnvvk plus ISS, Trulicity 4.5 mg weekly. meter give us error during download IM 03/2022 follow up visit on 03/14/2022, A1c in the office 9.4, bg 142, on lantus 58 units bid, lispro 1-92-59bgqbo plus ISS, Trulicity 4.5 mg weekly. lab [...] 25 mg, Oral, 2 times daily HYDROcodone-acetaminophen ([place]) 5-325 MG tablet 1 tablet, 3 times [...] 07/10/2023 Asthma ([facility]) 07/10/2023 Body mass index (BMI) 50.0-59.9, adult ([facility]) Cellulitis of left lower extremity Cervical cancer ([facility]) 09/17/2023 Chronic pain of both knees 09/17/2023 COPD (chronic obstructive pulmonary disease) ([facility]) 07/10/2023 COPD exacerbation ([facility]) 09/17/2023 Decreased functional mobility 09/17/2023 Diabetic neuropathy ([facility]) 07/10/2023 Dietary counseling and surveillance Edema 07/10/2023 Elevated sed rate Elevated WBC count Essential (primary) hypertension GERD (gastroesophageal reflux disease) 09/17/2023 Hyperlipidemia 09/17/2023 Hypertension 07/10/2023 Insomnia 09/17/2023 senior care (current) use of insulin ([facility]) Lower extremity edema 09/17/2023 Mixed hyperlipidemia Morbid (severe) obesity due to excess calories ([facility]) Obstructive sleep apnea 07/10/2023 PAD (peripheral artery disease) 09/17/2023 Pancreatitis ([facility]) 09/17/2023 Pneumonia 09/17/2023 Proteinuria, unspecified Pulmonary hypertension ([facility]) 09/17/2023 Radiculopathy, lumbar region 09/17/2023 Tobacco user [...] of insulin ([facility]) - POCT glycosylated hemoglobin (Hb A1C) docked [...] deficiency Primary hypertension Insulin long-term use ([facility]) Hyperlipemia, mixed Microalbuminuria Class 3 severe obesity due to excess calories with serious comorbidity and body mass index (BMI) of50.0 to 59.9 in adult ([facility] Diet and exercise reviewed with the patient Follow up in about 4 months (around 06/01/2025). documented in this encounterJohn J. Pershing VA Medical CenterEfquizvspf07-39-1463 History of Present illness Narrative* Mckayla Blas NP - 01/26/2025 6:46 PM EDTAssociated Problem(s): Anxiety and depression Current meds: elavil, duloxtine, * Mckayla Blas NP - 01/26/2025 6:46 PM EDTAssociated Problem(s): Morbid (severe) obesity due to excess calories ([facility]) Discussed with patient their BMI (actual, verses [...] Asthma (HCC) Current meds: albuterol, duoneb, Has bit sander 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 * Mckayla Blas NP [...] 25 mg, Oral, 2 times daily HYDROcodone-acetaminophen ([place]) 5-325 MG tablet 1 tablet, 3 times [...] 07/10/2023 Asthma ([facility]) 07/10/2023 Body mass index (BMI) 50.0-59.9, adult ([facility]) Cellulitis of left lower extremity Cervical cancer ([facility]) 09/17/2023 Chronic pain of both knees 09/17/2023 COPD (chronic obstructive pulmonary disease) ([facility]) 07/10/2023 COPD exacerbation ([facility]) 09/17/2023 Decreased functional mobility 09/17/2023 Diabetic neuropathy ([facility]) 07/10/2023 Dietary counseling and surveillance Edema 07/10/2023 Elevated sed rate Elevated WBC count Essential (primary) hypertension GERD (gastroesophageal reflux disease) 09/17/2023 Hyperlipidemia 09/17/2023 Hypertension 07/10/2023 Insomnia 09/17/2023 senior care (current) use of insulin ([facility]) Lower extremity edema 09/17/2023 Mixed hyperlipidemia Morbid (severe) obesity due to excess calories ([facility]) Obstructive sleep apnea 07/10/2023 PAD (peripheral artery disease) 09/17/2023 Pancreatitis ([facility]) 09/17/2023 Pneumonia 09/17/2023 Proteinuria, unspecified Pulmonary hypertension ([facility]) 09/17/2023 Radiculopathy, lumbar region 09/17/2023 Tobacco user [...] pulmonary disease) ([facility]) Follows with verena Needs smoking cessation Current meds: duoneb, albuterol, daliresp, Asthma ([facility]) Current meds: albuterol, duoneb, Has bit sander 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 Hypertension Please check blood [...] of insulin ([facility]) Check blood sugars daily, notify if <70 [...] MG tablet Pulmonary hypertension (HCC) Has seen [facility] Cardiology Hyperlipidemia On statin [...] excess calories ([facility]) Discussed with patient their BMI (actual, verses [...] EDTAssociated Problem(s): Pulmonary hypertension (HCC) Has seen [facility] Cardiology * Mckayla Blas [...] on a yearly basis documented in this encounterJohn J. Pershing VA Medical CenterLxthqbmorv39-66-3039 Instructions* Patient Instructions* Mckayla Blas NP - 01/26/2025 6:00 PM EDT Please call the [facility] to schedule your mammogram: [phone]- ext [phone] documented in this encounterJohn J. Pershing VA Medical CenterBmvbswwgax65-35-7857 NoteCardiovascular Medicine [facility] SUBJECTIVE Chief Complaint Patient presents with Congestive Heart Failure Hypertension Hyperlipidemia Mitzi Macias is a 54 y.o. female here for follow-up. PMHx: HFpEF, HTN, HLD, DM, longstanding heavy smoker, COPD, DANIEL, morbid obesity HPI 01/06/2025 Since last seen she was admitted to [facility] for AMS on 12/05/2024. She was [...] of insulin ([facility]) Unilateral primary osteoarthritis, right hip Vaginal yeast infection Venous insufficiency Bad odor of urine Critical limb ischemia of right lower extremity ([facility]) Hyperpigmentation of skin 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 2 diabetes mellitus ([facility]) Myelolipoma of adrenal gland Venous ulcer of right leg ([facility]) Chronic diastolic heart failure ([facility]) Antibiotic-induced yeast infection Cellulitis of left lower extremity Cigarette nicotine dependence without complication Fever Idiopathic chronic venous hypertension of both lower extremities with ulcer ([facility]) senior care current use of inhaled steroid Vitamin D deficiency, unspecified Vitamin deficiency Past Medical History: Diagnosis Date COPD (chronic obstructive pulmonary disease) ([facility]) Diabetes mellitus ([facility]) Hyperlipidemia Hypertension Sleep apnea Family History Problem [...] , Rfl: ergocalciferol (Vitamin D-2) 1.25 MG (15566 Units) capsule, Take 1.25 mg by mouth., [...] and at bedtime., Disp: , Rfl: HYDROcodone-acetaminophen ([place]) 5-325 mg tablet, TAKE 1 TABLET BY MOUTH THREE TIMES A DAY NEEDED FOR PAIN MUST LAST 30 DAYS, Disp: , Rfl: insulin aspart (NovoLOG) 100 unit/mL (3 mL) injection pen, Novolog Flexpen U-100 Insulin aspart 100 unit/mL (3 mL) subcutaneous, Disp: , Rfl: insulin glargine (Lantus Solostar U-100 Insulin) 100 unit/mL (3 mL) injection pen (more content not included)...[facility]07-01-2025 NotePatient is here today for a [...] and weight gain. Cardiovascular: Positive for leg swelling.[facility] 12-09-2024 History of Present illness Narrative* [...] bad light. She was ultimately taken to [facility] ER, no tox screen was done [...] 25 mg, Oral, 2 times daily HYDROcodone-acetaminophen ([place]) 5-325 MG tablet 1 tablet, 3 times [...] CT Albuminuria 09/17/2023 Angiomyolipoma Anxiety and depression ([facility]) 07/10/2023 Asthma 07/10/2023 Body mass index (BMI) 50.0-59.9, adult ([facility]) Cellulitis of left lower extremity Cervical cancer ([facility]) 09/17/2023 Chronic pain of both knees 09/17/2023 COPD (chronic obstructive pulmonary disease) ([facility]) 07/10/2023 COPD exacerbation ([facility]) 09/17/2023 Decreased functional mobility 09/17/2023 Diabetic neuropathy ([facility]) 07/10/2023 Dietary counseling and surveillance Edema 07/10/2023 Elevated sed rate Elevated WBC count Essential (primary) hypertension ([facility]) GERD (gastroesophageal reflux disease) 09/17/2023 Hyperlipidemia ([facility]) 09/17/2023 Hypertension ([facility]) 07/10/2023 Insomnia 09/17/2023 senior care (current) use of insulin ([facility]) Lower extremity edema 09/17/2023 Mixed hyperlipidemia ([facility]) Morbid (severe) obesity due to excess calories ([facility]) Obstructive sleep apnea 07/10/2023 PAD (peripheral artery disease) ([facility]) 09/17/2023 Pancreatitis 09/17/2023 Pneumonia 09/17/2023 Proteinuria, unspecified Pulmonary hypertension ([facility]) 09/17/2023 Radiculopathy, lumbar region 09/17/2023 Tobacco user 09/17/2023 Type 2 diabetes mellitus with complication, with long-term current use of insulin ([facility]) 07/10/2023 Unilateral primary osteoarthritis, right hip [...] Problem List Items Addressed This Visit Hypertension ([facility]) Please check blood pressure daily and record DASH diet Limit caffeine Take medication as directed Contact office if chest pain, pressure, dizziness, shortness of breath, swelling legs Recommend slow position changes Current meds: hydralazine, lisinopril, Type 2 diabetes mellitus with complication, with long-term current use of insulin ([facility]) Check blood sugars daily, notify if <70 [...] secondary to her steroids Anxiety and depression ([facility]) Current meds: elavil, duloxtine, COPD exacerbation ([facility]) Recent ER visit for unresponsiveness , found to have fever and elevated WBC Sent home with steroids and atb Breathing is better and she feels back to her normal baseline Does have home O2, she is not wearing this today Pulmonary hypertension (CMS/HCC) Has seen [facility] Cardiology Morbid (severe) obesity due to excess calories ([facility]) Discussed with patient their BMI (actual, verses [...] 7:24 AM EDTAssociated Problem(s): Anxiety and depression ([facility]) Current meds: elavil, duloxtine, * Mckayla Blas NP - 12/09/2024 7:24 AM EDTAssociated Problem(s): Type 2 diabetes mellitus with complication, with long-term current use of insulin ([facility]) Check blood sugars daily, notify if <70 [...] EDTAssociated Problem(s): Pulmonary hypertension (CMS/HCC) Has seen [facility] Cardiology * Mckayla Blas [...] not wearing this today documented in this encounterJohn J. Pershing VA Medical [id number] Instructions* Patient Instructions* Mckayla Blas NP - 12/09/2024 10:00 AM EDT Keep appt with wound care today Keep fu with me, sooner if needed documented in this encounterJohn J. Pershing VA Medical [id number] History of Present illness Narrative* Mckayla Blas [...] PM EDTAssociated Problem(s): PAD (peripheral artery disease) ([facility]) Asa, statin Quit smoking BP and DM [...] 25 mg, Oral, 2 times daily HYDROcodone-acetaminophen ([place]) 5-325 MG tablet 1 tablet, 3 times [...] CT Albuminuria 09/17/2023 Angiomyolipoma Anxiety and depression ([facility]) 07/10/2023 Asthma 07/10/2023 Body mass index (BMI) 50.0-59.9, adult ([facility]) Cellulitis of left lower extremity Cervical cancer ([facility]) 09/17/2023 Chronic pain of both knees 09/17/2023 COPD (chronic obstructive pulmonary disease) ([facility]) 07/10/2023 COPD exacerbation ([facility]) 09/17/2023 Decreased functional mobility 09/17/2023 Diabetic neuropathy ([facility]) 07/10/2023 Dietary counseling and surveillance Edema 07/10/2023 Elevated sed rate Elevated WBC count Essential (primary) hypertension ([facility]) GERD (gastroesophageal reflux disease) 09/17/2023 Hyperlipidemia ([facility]) 09/17/2023 Hypertension ([facility] [place] 07/10/2023 Insomnia 09/17/2023 senior care (current) use of insulin ([facility] [place] Lower extremity edema 09/17/2023 Mixed hyperlipidemia ([facility] [place]) Morbid (severe) obesity due to excess calories ([facility] [place]) Obstructive sleep apnea 07/10/2023 PAD (peripheral artery disease) ([facility] [place]) 09/17/2023 Pancreatitis 09/17/2023 Pneumonia 09/17/2023 Proteinuria, unspecified Pulmonary hypertension ([facility] [place] 09/17/2023 Radiculopathy, lumbar region 09/17/2023 Tobacco user 09/17/2023 Type 2 diabetes mellitus with complication, with long-term current use of insulin ([facility]) 07/10/2023 Unilateral primary osteoarthritis, right hip [...] List Items Addressed This Visit Diabetic neuropathy ([facility]) - Primary Continue with cintia hudson mgmt is prescribing OARRS reviewed Fu in 3 months Goal: tighter glucose control, this has been improving, latest A1c is 7.4%!!! Hypertension ([facility]) Please check blood pressure daily and record DASH diet Limit caffeine Take medication as directed Contact office if chest pain, pressure, dizziness, shortness of breath, swelling legs Recommend slow position changes Current meds: hydralazine, lisinopril, Relevant Medications hydrALAZINE (Apresoline) 25 MG tablet lisinopril 20 MG tablet Type 2 diabetes mellitus with complication, with long-term current use of insulin ([facility]) Check blood sugars daily, notify if <70 [...] 81 MG chewable tablet Anxiety and depression ([facility]/HCC) Current meds: elavil, duloxtine, Relevant Medications DULoxetine [...] (severe) obesity due to excess calories ([facility]) Discussed with patient their BMI (actual, verses [...] mounjaro for DM Chronic diastolic heart failure ([facility]/HCC) Current meds; asa, farxiga, lasix, hydralazine, lisinopril, Follows with cardilogy Reviewed 08/02 notes Cigarette nicotine dependence without complication Is currently using chantix, and is doing well, less desire, smoking less Vitamin D deficiency, unspecified Relevant Medications ergocalciferol (Vitamin D2) 1.25 MG (15074 UT) capsule Gastro-esophageal reflux disease without esophagitis [...] latest A1c is 7.4%!!! documented in this [facility]04-21-2025 Instructions* Patient Instructions* Mckayla Blas NP - 10/27/2024 2:00 PM EDT No dose changes in meds You will be due for mammogram I will send order to [facility], they should call you to schedule If no call, please call [phone] ext [phone] documented in this encounterJohn J. Pershing VA Medical [id number] History of Present illness Narrative* Rain Souza [...] 96, on lantus 58 units bid, lispro 7-24-14hdwsk plus ISS, Trulicity 4.5 mg weekly. meter give us error during download IM 03/2022 follow up visit on 03/14/2022, A1c in the office 9.4, bg 142, on lantus 58 units bid, lispro 3-50-26rpyei plus ISS, Trulicity 4.5 mg weekly. lab [...] or chew. ergocalciferol (Vitamin D2) 1.25 MG (58591 UT) capsule TAKE 1 CAPSULE BY MOUTH [...] 25 mg, Oral, 2 times daily HYDROcodone-acetaminophen (Salis[place]) 5-325 MG tablet 1 tablet, 3 times [...] CT Albuminuria 09/17/2023 Angiomyolipoma Anxiety and depression ([facility]) 07/10/2023 Asthma ([facility]) 07/10/2023 Body mass index (BMI) 50.0-59.9, adult ([facility]) Cellulitis of left lower extremity Cervical cancer ([facility]) 09/17/2023 Chronic pain of both knees 09/17/2023 COPD (chronic obstructive pulmonary disease) [facility] 07/10/2023 COPD exacerbation ([facility]) 09/17/2023 Decreased functional mobility 09/17/2023 Diabetic neuropathy ([facility]) 07/10/2023 Dietary counseling and surveillance Edema 07/10/2023 Elevated sed rate Elevated WBC count Essential (primary) hypertension ([facility]) GERD (gastroesophageal reflux disease) 09/17/2023 Hyperlipidemia ([facility]) 09/17/2023 Hypertension ([facility]) 07/10/2023 Insomnia 09/17/2023 senior care (current) use of insulin ([facility]) Lower extremity edema 09/17/2023 Mixed hyperlipidemia ([facility]) Morbid (severe) obesity due to excess calories ([facility]) Obstructive sleep apnea 07/10/2023 PAD (peripheral artery disease) ([facility]) 09/17/2023 Pancreatitis 09/17/2023 Pneumonia 09/17/2023 Proteinuria, unspecified Pulmonary hypertension ([facility]) 09/17/2023 Radiculopathy, lumbar region 09/17/2023 Tobacco user 09/17/2023 Type 2 diabetes mellitus with complication, with long-term current use of insulin ([facility]) 07/10/2023 Unilateral primary osteoarthritis, right hip [...] hyperglycemia, with long-term current use of insulin ([facility]) - POCT glucose manually resulted - POCT [...] 4 months (around 02/07/2025). documented in this encounterJohn J. Pershing VA Medical [id number] History of Present illness Narrative* Mckayla Blas [...] or chew. ergocalciferol (Vitamin D2) 1.25 MG (55337 UT) capsule TAKE 1 CAPSULE BY MOUTH [...] 25 mg, Oral, 2 times daily HYDROcodone-acetaminophen ([place]) 5-325 MG tablet 1 tablet, 3 times [...] CT Albuminuria 09/17/2023 Angiomyolipoma Anxiety and depression ([facility]) 07/10/2023 Asthma ([facility]) 07/10/2023 Body mass index (BMI) 50.0-59.9, adult ([facility]) Cellulitis of left lower extremity Cervical cancer ([facility]) 09/17/2023 Chronic pain of both knees 09/17/2023 COPD (chronic obstructive pulmonary disease) ([facility]) 07/10/2023 COPD exacerbation ([facility]) 09/17/2023 Decreased functional mobility 09/17/2023 Diabetic neuropathy ([facility]) 07/10/2023 Dietary counseling and surveillance Edema 07/10/2023 Elevated sed rate Elevated WBC count Essential (primary) hypertension ([facility]) GERD (gastroesophageal reflux disease) 09/17/2023 Hyperlipidemia ([facility]) 09/17/2023 Hypertension ([facility]) 07/10/2023 Insomnia 09/17/2023 senior care (current) use of insulin ([facility]) Lower extremity edema 09/17/2023 Mixed hyperlipidemia ([facility]) Morbid (severe) obesity due to excess calories ([facility]) Obstructive sleep apnea 07/10/2023 PAD (peripheral artery disease) ([facility]) 09/17/2023 Pancreatitis 09/17/2023 Pneumonia 09/17/2023 Proteinuria, unspecified Pulmonary hypertension ([facility]) 09/17/2023 Radiculopathy, lumbar region 09/17/2023 Tobacco user 09/17/2023 Type 2 diabetes mellitus with complication, with long-term current use of insulin ([facility]) 07/10/2023 Unilateral primary osteoarthritis, right hip 09/17/2023 [...] List Items Addressed This Visit Diabetic neuropathy ([facility]) Continue with cintia hudson is prescribing OARRS reviewed Fu in 3 months Goal: tighter glucose control Hypertension ([facility]) Please check blood pressure daily and record [...] of insulin ([facility]) Check blood sugars daily, notify if <70 [...] Uric acid Venous ulcer of right leg ([facility]) Continue with wound for treatment Had recent [...] excess calories ([facility]) Discussed with patient their BMI (actual, verses [...] DM Body mass index (BMI) 50.0-59.9, adult ([facility]) Chronic diastolic heart failure (CMS/HCC) Current meds; [...] of insulin ([facility]) Check blood sugars daily, notify if <70 [...] excess calories ([facility]) Discussed with patient their BMI (actual, verses [...] AM ESTAssociated Problem(s): Chronic diastolic heart failure ([facility]CC) Current meds; asa, farxiga, lasix, hydralazine, lisinopril, Follows with cardilogy Reviewed 08/02 notes * Mckayla Blas NP - 08/27/2024 7:31 AM ESTAssociated Problem(s): COPD (chronic obstructive pulmonary disease) ([facility]) Follows with verena Needs smoking cessation Current meds: duoneb, albuterol, daliresp, * Mckayla Blas NP - 08/27/2024 7:30 AM ESTAssociated Problem(s): Asthma ([facility]) Current meds: albuterol, duoneb, Has bit sander 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 * Mckayla Blas NP [...] Goal: tighter glucose control documented in this encounterJohn J. Pershing VA Medical [id number] NoteUT Cardiology - [facility] Subjective Mitzi Macias is a [...] Diagnosis Date COPD (chronic obstructive pulmonary disease) ([facility]) Diabetes mellitus ([facility]) Hyperlipidemia Hypertension Sleep apnea Past Surgical History: [...] , Rfl: ergocalciferol (Vitamin D-2) 1.25 MG (06833 Units) capsule, Take 1.25 mg by mouth., [...] and at bedtime., Disp: , Rfl: HYDROcodone-acetaminophen ([place]) 5-325 mg tablet, TAKE 1 TABLET BY [...] SUBCUTANEOUSLY TWICE DAILY, Disp: (more content not included)...[facility]01-06-2025 History of Present illness Narrative* Mckayla [...] or chew. ergocalciferol (Vitamin D2) 1.25 MG (54710 UT) capsule TAKE 1 CAPSULE BY MOUTH ONE TIME PER WEEK furosemide (LASIX) 40 mg, Oral, Daily furosemide (LASIX) 20 mg, Oral, Daily PRN, Take in the afternoon as needed hydrALAZINE (APRESOLINE) 25 mg, Oral, 2 times daily HYDROcodone-acetaminophen ([place]) 5-325 MG tablet 1 tablet, 3 times [...] CT Albuminuria 09/17/2023 Angiomyolipoma Anxiety and depression ([facility]) 07/10/2023 Asthma ([facility]) 07/10/2023 Body mass index (BMI) 50.0-59.9, adult ([facility]) Cellulitis of left lower extremity Cervical cancer ([facility]) 09/17/2023 Chronic pain of both knees 09/17/2023 COPD (chronic obstructive pulmonary disease) ([facility]) 07/10/2023 COPD exacerbation ([facility]) 09/17/2023 Decreased functional mobility 09/17/2023 Diabetic neuropathy ([facility]) 07/10/2023 Dietary counseling and surveillance Edema 07/10/2023 Elevated sed rate Elevated WBC count Essential (primary) hypertension ([facility]) GERD (gastroesophageal reflux disease) 09/17/2023 Hyperlipidemia ([facility]) 09/17/2023 Hypertension ([facility]) 07/10/2023 Insomnia 09/17/2023 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 ([facility]) Lower extremity edema 09/17/2023 Mixed hyperlipidemia ([facility]) Morbid (severe) obesity due to excess calories ([facility]) Obstructive sleep apnea 07/10/2023 PAD (peripheral artery disease) ([facility]) 09/17/2023 Pancreatitis 09/17/2023 Pneumonia 09/17/2023 Proteinuria, unspecified Pulmonary hypertension ([facility]) 09/17/2023 Radiculopathy, lumbar region 09/17/2023 Tobacco user 09/17/2023 Type 2 diabetes mellitus with complication, with long-term current use of insulin ([facility]) 07/10/2023 Unilateral primary osteoarthritis, right hip 09/17/2023 [...] List Items Addressed This Visit Diabetic neuropathy ([facility]) Continue with tristan EAST reviewed Fu in 3 months COPD (chronic obstructive pulmonary disease) ([facility]) Stable at this time, no changes in meds Encouraged smoking cessation Cont with dr Yañez Hypertension ([facility]) - Primary Please check blood pressure daily and record DASH diet Limit caffeine Take medication as directed Contact office if chest pain, pressure, dizziness, shortness of breath, swelling legs Recommend slow position changes Current meds: hydralazine, lisinopril, Type 2 diabetes mellitus with complication, with long-term current use of insulin ([facility]) Check blood sugars daily, notify if <70 [...] Critical limb ischemia of right lower extremity ([facility]/HCC) Saw vascular, does have narrowing in arteries in legs, and thus the wounds not healing At this point they strongly urge to quit smoking or risk limb amputation Cont asa and statin Also good blood pressure and sugar control Venous ulcer of right leg ([facility]CC) Encounter for smoking cessation counseling Relevant Medications [...] of insulin ([facility]) Check blood sugars daily, notify if <70 [...] Fu in 3 months documented in this encounterJohn J. Pershing VA Medical [id number] Hospital Discharge instructions Patient Education 06/11/2024 10:44:08 [...] require a prescription. You can also purchase cmdj-nom-kcaigmr medicines. Medicines may have nicotine in them [...] and encouragement. Call telephone quitlines, such as 0-107-LVNR-NOW, reach out to support groups, or work [...] provider. Document Revised: 06/16/2022 Document Reviewed: 06/16/2022 [employer] Patient Education 2023 [employer]. 06/11/2024 10:39:22 Dietary Guidelines to Help Prevent [...] include: ?8 oz (237 mL) of milk, nvaihjf-cppfqvbewizz-vrnlc milk, and calcium- fortifiedfruit juice. Calcium-fortified means [...] ?Spinach (cooked), rhubarb, beets, sweet potatoes, and Kitt[place] chard. ?Peanuts. ?Potato chips, togolese fries, and baked potatoes with skin on. ?Nuts and nut products. ?Chocolate. If you regularly take a diuretic medicine, make sure to eat at least 1 or 2 servings of fruits or vegetables that are high in potassium each day. These include: ?Avocado. ?Banana. ?Silver Bow, prune, carrot, or tomato juice. ?Baked potato. [...] magnesium, fish oil, or vitamin B6. Take ncgw-cnp-tlacouj and prescription medicines only as told by [...] Casseroles. Pizza. Lasagna. Frozen meals. Potato chips. South African fries. The items listed above may not [...] provider. Document Revised: 10/05/2022 Document Reviewed: 10/05/2022 [employer] Patient Education 2023 [employer]. Follow Up Care 05/06/2024 08:24:56 With:REGLA PHIPPS, Elbert Joya, URL Address: [facility] [address] [place] [address]- When: Unknown [facility] 12-04-2024 NotePatient Education Nephrology Dietary Guidelines to [...] ? 8 oz (237 mL) of milk, ogubett-pjakvvqtidnn-ihtdc milk, and calcium- fortifiedfruit juice. Calcium-fortified means [...] Spinach (cooked), rhubarb, beets, sweet potatoes, and Kittitian chard. ? Peanuts. ? Potato chips, togolese fries, and baked potatoes with skin on. ? Nuts and nut products. ? Chocolate. ??? If you regularly take a diuretic medicine, make sure to eat at least 1 or 2 servings of fruits or vegetables that are high in potassium each day. These include: ? Avocado. ? Banana. ? Silver Bow, prune, carrot, or tomato juice. ? Baked [...] fish oil, or vitamin B6. ??? Take vieg-koj-gczoljv and prescription medicines only as told by your health (more content not included)...[facility]11-19-2024 History of Present illness Narrative* Rain [...] 96, on lantus 58 units bid, lispro 9-27-80gvdfi plus ISS, Trulicity 4.5 mg weekly. meter give us error during download IM 03/2022 follow up visit on 03/14/2022, A1c in the office 9.4, bg 142, on lantus 58 units bid, lispro 6-48-65fetuw plus ISS, Trulicity 4.5 mg weekly. lab [...] or chew. ergocalciferol (Vitamin D2) 1.25 MG (93102 UT) capsule TAKE 1 CAPSULE BY MOUTH ONE TIME PER WEEK furosemide (LASIX) 20 mg, Oral, Daily PRN, Take in the afternoon as needed furosemide (LASIX) 40 mg, Oral, Daily Glucose Blood (ACCU-CHEK JAQUI PLUS ) 4 times daily hydrALAZINE (APRESOLINE) 25 mg, Oral, 2 times daily HYDROcodone-acetaminophen ([place]) 5-325 MG tablet 1 tablet, 3 times [...] 42 tablet [facility] ALLERGIES: No Known Allergies Past Medical History: Diagnosis Date Abnormal chest CT Albuminuria 09/17/2023 Angiomyolipoma Anxiety and depression ([facility]) 07/10/2023 Asthma ([facility]) 07/10/2023 Body mass index (BMI) 50.0-59.9, adult ([facility] Cellulitis of left lower extremity Cervical cancer ([facility]) 09/17/2023 Chronic pain of both knees 09/17/2023 COPD (chronic obstructive pulmonary disease) ([facility]) 07/10/2023 COPD exacerbation ([facility]) 09/17/2023 Decreased functional mobility 09/17/2023 Diabetic neuropathy ([facility]) 07/10/2023 Dietary counseling and surveillance Edema 07/10/2023 Elevated sed rate Elevated WBC count GERD (gastroesophageal reflux disease) 09/17/2023 Hyperlipidemia ([facility]) 09/17/2023 Hypertension ([facility]) 07/10/2023 Insomnia 09/17/2023 senior care (current) use of insulin ([facility]) Lower extremity edema 09/17/2023 Morbid (severe) obesity due to excess calories ([facility]) Obstructive sleep apnea 07/10/2023 PAD (peripheral artery disease) ([facility]) 09/17/2023 Pancreatitis 09/17/2023 Pneumonia 09/17/2023 Proteinuria, unspecified Pulmonary hypertension ([facility]) 09/17/2023 Radiculopathy, lumbar region 09/17/2023 Tobacco user 09/17/2023 Type 2 diabetes mellitus with complication, with long-term current use of insulin ([facility]) 07/10/2023 Unilateral primary osteoarthritis, right hip [...] hyperglycemia, with long-term current use of insulin ([facility]) - POCT glucose manually resulted - POCT glycosylated hemoglobin (Hb A1C) docked device We will continue with Lantus 58, lispro 02/16/12 according to meal size, Mounjaro 15 mg once weekly, Farxiga 5 mg once a day Encounter for dietary consultation Vitamin D deficiency Primary hypertension ([facility]) To follow with her PCP Insulin long-term use ([facility]) Hyperlipemia, mixed ([facility]) Continue with Zocor 10 mg once daily Microalbuminuria Class 3 severe obesity due to excess calories with serious comorbidity and body mass index (BMI) of50.0 to 59.9 in adult ([facility]) Diet and exercise reviewed with the patient Follow up in about 3 months (around 08/27/2024). documented in this encounterJohn J. Pershing VA Medical [id number] History of Present illness Narrative* Mckayla Blas [...] of insulin ([facility]) Check blood sugars daily, follow w Endo. [...] - 04/14/2024 11:42 AM EDTAssociated Problem(s): Hypertension ([facility]) Stable on current meds Refill meds * Mckayla Blas NP - 04/14/2024 11:42 AM EDTAssociated Problem(s): COPD (chronic obstructive pulmonary disease) ([facility]) Stable at this time, no changes in [...] from the original note were not included. Mitiz Macias is a 53 y.o. female presents [...] being taken. She does not see a transportation consultant.Eye exam is not current. Hypertension This [...] or chew. ergocalciferol (Vitamin D2) 1.25 MG (71523 UT) capsule TAKE 1 CAPSULE BY MOUTH ONE TIME PER WEEK furosemide (LASIX) 20 mg, Oral, Daily PRN, Take in the afternoon as needed furosemide (LASIX) 40 mg, Oral, Daily Glucose Blood (ACCU-CHEK JAQUI PLUS ) 4 times daily HumaLOG KWIKPEN 100 UNIT/ML injection Subcutaneous hydrALAZINE (APRESOLINE) 25 mg, Oral, 2 times daily HYDROcodone-acetaminophen ([place]) 5-325 MG tablet 1 tablet, 3 times [...] 42 tablet therapy pack TAKED DIRECTED BYSAINT [facility] TWICE DAILY ALLERGIES: No Known Allergies REVIEW [...] CT Albuminuria 09/17/2023 Angiomyolipoma Anxiety and depression ([facility]) 07/10/2023 Asthma ([facility]) 07/10/2023 Cellulitis of left lower extremity Cervical cancer ([facility]) 09/17/2023 Chronic pain of both knees 09/17/2023 COPD (chronic obstructive pulmonary disease) ([facility]) 07/10/2023 COPD exacerbation ([facility]) 09/17/2023 Decreased functional mobility 09/17/2023 Diabetic neuropathy ([facility]) 07/10/2023 Edema 07/10/2023 Elevated sed rate Elevated WBC count GERD (gastroesophageal reflux disease) 09/17/2023 Hyperlipidemia ([facility]) 09/17/2023 Hypertension ([facility]) 07/10/2023 Insomnia 09/17/2023 Lower extremity edema 09/17/2023 Obstructive sleep apnea 07/10/2023 PAD (peripheral artery disease) ([facility]) 09/17/2023 Pancreatitis 09/17/2023 Pneumonia 09/17/2023 Pulmonary hypertension ([facility]) 09/17/2023 Radiculopathy, lumbar region 09/17/2023 Tobacco user 09/17/2023 Type 2 diabetes mellitus with complication, with long-term current use of insulin ([facility]) 07/10/2023 Unilateral primary osteoarthritis, right hip 09/17/2023 [...] List Items Addressed This Visit Diabetic neuropathy ([facility]) Continue with tristan EAST reviewed Fu in 3 months Relevant Medications pregabalin (Lyrica) 300 MG capsule COPD (chronic obstructive pulmonary disease) ([facility]) - Primary Stable at this time, no changes in meds Encouraged smoking cessation Cont with dr Yañez Hypertension ([facility]) Stable on current meds Refill meds Relevant Medications hydrALAZINE (Apresoline) 25 MG tablet lisinopril 20 MG tablet Type 2 diabetes mellitus with complication, with long-term current use of insulin ([facility]) Check blood sugars daily, follow w Endo. [...] 81 MG chewable tablet Anxiety and depression ([facility]) Relevant Medications DULoxetine (Cymbalta) [address] capsule Bilateral lower extremity edema Stable on current meds Insomnia Relevant Medications amitriptyline (Elavil) 25 MG tablet Tobacco user Urged to quit Non-seasonal allergic rhinitis Relevant Medications cetirizine (ZyrTEC) 10 MG tablet Hyperpigmentation of skin Will try cerevue ointment to see if helps Other Visit Diagnoses Type 2 diabetes mellitus with unspecified complications ([facility]) Relevant Medications dapagliflozin (Farxiga) 10 MG Gastro-esophageal reflux disease without esophagitis Relevant Medications omeprazole (PriLOSEC) [address] capsule Edema, unspecified Relevant Medications potassium chloride ER (Micro-K) 10 MEQ ER capsule Edema Relevant Medications potassium chloride ER (Micro-K) 10 MEQ ER capsule Chronic obstructive pulmonary disease, unspecified ([facility]) Relevant Medications Roflumilast 500 MCG tablet documented in this encounter[facility]. [facility] [id number] Hospital Discharge instructions Patient Education 11/15/2022 14:09:21 [...] include: ?8 oz (237 mL) of milk, ufnmvno-ztvmabqkvdjy-ysado milk, and calcium- fortifiedfruit juice. Calcium-fortified means [...] ?Spinach (cooked), rhubarb, beets, sweet potatoes, and Kitt[place] chard. ?Peanuts. ?Potato chips, togolese fries, and baked potatoes with skin on. ?Nuts and nut products. ?Chocolate. If you regularly take a diuretic medicine, make sure to eat at least 1 or 2 servings of fruits or vegetables that are high in potassium each day. These include: ?Avocado. ?Banana. ?[place], prune, carrot, or tomato juice. ?Baked potato. [...] magnesium, fish oil, or vitamin B6. Take ezvc-uxr-dfurbxx and prescription medicines only as told by [...] Casseroles. Pizza. Lasagna. Frozen meals. Potato chips. South African fries. The items listed above may not [...] provider. Document Revised: 03/06/2022 Document Reviewed: 03/06/2022 [employer] Education 2022 [employer]. Follow Up Care 02/06/2022 11:44:09 With:SILVIA HOWELL, GAVIOTA Webb, URL Address: [address] [place] [address] When: Unknown [facility] [place] 02-16-2023 NoteCONSULTATION CONSULTATION DATE: 08/24/2022 HISTORY OF [...] We maintain her on pain medication with Salisbury 5/325 t.i.d., diclofenac 75 mg b.i.d. Her [...] her at this point. A refill for Salisbury 5/325 t.i.d. and diclofenac 75 mg b.i.d. will be sent to the pharmacy. Vitamin compliance and nutrition were discussed and enforced. I did highly encourage her to use exercise bands to increase the strength in her lower extremities. We will see her in three months' time, unless otherwise indicated, and patient agrees.[facility] [id number] NoteCONSULTATION CONSULTATION DATE: 05/11/2022 This 51-year-old female [...] 150. Medications include Lyrica 300 mg b.i.d., Salisbury 5/325 t.i.d., diclofenac 75 mg b.i.d. and [...] her medications today. We will maintain Lyrica, Salisbury and diclofenac at the set dose and frequency. We will follow-up in the clinic in three months' time. The patient is in agreement to this. Vitamin importance and nutrition were discussed.[facility] [id number] NoteCONSULTATION CONSULTATION DATE: 04/20/2022 HISTORY OF PRESENT [...] medications include Tylenol, Lyrica 300 mg b.i.d., Salisbury 5/325 t.i.d., amitriptyline, diclofenac and duloxetine. Patient's [...] will be followed up in the clinic.[facility] [id number] Evaluation note* Encounter Date Diagnosis Assessment Notes [...] to the DANIEL. Thrombocytopenia is unclear etiology. [employer] Other 08-15-2022 Evaluation note* Encounter Date Diagnosis [...] follow with Dr. Souza and Dr. Arauz. [employer] Other 08-01-2022 Hospital Discharge instructions Patient Education [...] fried and sweet foods. General instructions Take jkuq-lke-xneiprr and prescription medicines only as told by [...] 04/21/2010 Document Revised: 10/16/2019 Document Reviewed: 07/11/2018 [employer] Education 2020 [employer]. Follow Up Care 01/05/2022 12:02:03 With:REGLA PHIPPS, Elbert Joya, URL Address: [facility] [address], [place] [phone] When:Within 6 Month(s) Comments:w/ repeat CT A/P [facility] 07-14-2022 NoteCONSULTATION PROCEDURE DATE: 01/19/2022 PRE [...] GIL VALENZUELA . 01/27/2022 14:15:00[facility]07-14-2022 NoteCONSULTATION CONSULTATION DATE: 01/19/2022 This is [...] today. Medications include Lyrica 300 mg b.i.d., Salisbury 5/325 t.i.d., diclofenac 75 mg b.i.d. and [...] GIL VALENZUELA . 01/27/2022 14:[facility]:00[facility] Future Appointments Appointment Date:08/14/2022 09:15:00 AM Scheduled Provider:Elbert ARAUZ MD Location:[facility] Appointment Type:URO Office Visit [facility] evaluation + Plan note Future Appointments Appointment Date:04/22/2024 10:00:00 AM Scheduled Provider:GAVIOTA ADAMES PA-C Location:[facility] Appointment Type:URO Office Visit [facility] evaluation note* Diagnosis Type 2 diabetes mellitus with unspecified complications ([facility]) Edema, unspecified Edema documented in this encounter [facility] HealthcareEvaluation note* Diagnosis Vaginal yeast infection- Primary Candidiasis of vulva and vagina documented in this encounter [facility] HealthcareEvaluation note* Diagnosis Primary hypertension [...] skin Other dyschromia documented in this encounter [facility] HealthcareEvaluation note* Diagnosis Obstructive sleep [...] polyneuropathy associated with type 2 diabetes mellitus ([facility]) Chronic obstructive pulmonary disease, unspecified ([facility]) Pulmonary emphysema, unspecified emphysema type ([facility]) Bilateral lower extremity edema Tobacco user Tobacco use disorder Hyperpigmentation of skin Other dyschromia Type 2 diabetes mellitus with hyperglycemia, with long-term current use of insulin ([facility])- Primary Encounter for dietary consultation Vitamin D deficiency Primary hypertension ([facility]) Unspecified essential hypertension Insulin long-term use ([facility]) Encounter for long-term (current) use of insulin Hyperlipemia, mixed ([facility]) Mixed hyperlipidemia Microalbuminuria Proteinuria Class 3 severe obesity due to excess calories with serious comorbidity and body mass index (BMI) of50.0 to 59.9 in adult ([facility]) documented in this encounter [facility] HealthcareEvaluation note* Diagnosis Hyperlipidemia, unspecified ([facility]) Bilateral lower extremity edema documented in this encounter [facility] HealthcareEvaluation note* Diagnosis Vitamin D deficiency, unspecified documented in this encounter [facility] HealthcareEvaluation note* Diagnosis Obstructive sleep apnea- Primary Obstructive sleep apnea (adult) (pediatric) Pulmonary emphysema, unspecified emphysema type ([facility]) Primary hypertension ([facility]) Unspecified essential hypertension Type 2 diabetes mellitus with complication, with long-term current use of insulin ([facility] Anxiety and depression ([facility]) Bilateral lower extremity edema Pulmonary emphysema, unspecified emphysema type ([facility])- Primary Primary hypertension ([facility] Unspecified essential hypertension Class 3 severe obesity with serious comorbidity and body mass index (BMI) of 50.0 to 59.9 in adult,unspecified obesity type ([facility]) Obstructive sleep apnea Obstructive sleep apnea (adult) (pediatric) Pulmonary hypertension ([facility]) Other chronic pulmonary heart diseases Tobacco user Tobacco use disorder Cardiomegaly Primary hypertension ([facility])- Primary Unspecified essential hypertension Gastroesophageal reflux disease, unspecified whether esophagitis present Type 2 diabetes mellitus with complication, with long-term current use of insulin ([facility]) Mixed hyperlipidemia ([facility]) Mixed hyperlipidemia Tobacco user Tobacco use disorder Encounter for screening mammogram for malignant neoplasm of breast Chronic obstructive pulmonary disease, unspecified ([facility] Other specified chronic obstructive pulmonary disease ([facility] Anxiety and depression ([facility]) Edema, unspecified Edema Hyperlipidemia, unspecified ([facility]) Diabetic polyneuropathy associated with type 2 diabetes [...] of insulin ([facility]) Class 3 severe obesity with serious comorbidity [...] unspecified (CMS/HCC) Pulmonary emphysema, unspecified emphysema type ([facility]) Bilateral lower extremity edema Tobacco user Tobacco use disorder Hyperpigmentation of skin Other dyschromia Bilateral lower extremity edema documented in this encounter [facility] HealthcareEvaluation note* Diagnosis Obstructive sleep apnea- Primary Obstructive sleep apnea (adult) (pediatric) Pulmonary emphysema, unspecified emphysema type ([facility]) Primary hypertension ([facility]) Unspecified essential hypertension Type 2 diabetes mellitus with complication, with long-term current use of insulin ([facility] Anxiety and depression ([facility]) Bilateral lower extremity edema Pulmonary emphysema, unspecified emphysema type (CMS/HCC)- Primary Primary hypertension ([facility]) Unspecified essential hypertension Class 3 severe obesity with serious comorbidity and body mass index (BMI) of 50.0 to 59.9 in adult,unspecified obesity type ([facility]) Obstructive sleep apnea Obstructive sleep apnea (adult) (pediatric) Pulmonary hypertension ([facility]) Other chronic pulmonary heart diseases Tobacco user Tobacco use disorder Cardiomegaly Primary hypertension ([facility])- Primary Unspecified essential hypertension Gastroesophageal reflux disease, unspecified whether esophagitis present Type 2 diabetes mellitus with complication, with long-term current use of insulin ([facility]) Mixed hyperlipidemia ([facility]) Mixed hyperlipidemia Tobacco user Tobacco use disorder Encounter for screening mammogram for malignant neoplasm of breast Chronic obstructive pulmonary disease, unspecified ([facility]) Other specified chronic obstructive pulmonary disease ([facility] Anxiety and depression ([facility]) Edema, unspecified Edema Hyperlipidemia, unspecified ([facility]) Diabetic polyneuropathy associated with type 2 diabetes mellitus ([facility]) Gout, unspecified cause, unspecified chronicity, unspecified site Non-seasonal allergic rhinitis, unspecified trigger Bilateral lower extremity edema COPD exacerbation ([facility]) Obstructive chronic bronchitis with exacerbation Pulmonary emphysema, unspecified emphysema type ([facility]) Venous insufficiency Unspecified venous (peripheral) insufficiency Candidiasis of breast COPD exacerbation ([facility])- Primary Obstructive chronic bronchitis with exacerbation Pulmonary hypertension ([facility]) Other chronic pulmonary heart diseases Class 3 severe obesity with serious comorbidity and body mass index (BMI) of 50.0 to 59.9 in adult,unspecified obesity type ([facility]) Encounter for subsequent annual wellness visit (AWV) in Medicare patient- Primary Type 2 diabetes mellitus with unspecified complications ([facility]) Pulmonary emphysema, unspecified emphysema type (CMS/HCC) Moderate persistent asthma without complication (CMS/HCC) Primary hypertension ([facility]) Unspecified essential hypertension Type 2 diabetes mellitus with complication, with long-term current use of insulin ([facility]) Class 3 severe obesity with serious comorbidity and body mass index (BMI) of 50.0 to 59.9 in adult,unspecified obesity type ([facility]) Tobacco user Tobacco use disorder Other headache syndrome Malignant neoplasm of cervix uteri, unspecified (CMS/HCC) Other specified disorders of adrenal gland ([facility]) Major depressive disorder, single episode, mild (HCC) ([facility]) Major depressive disorder, single episode, mild Non-pressure chronic ulcer of other part of left lower leg with fat layer exposed ([facility]) Chronic respiratory failure, unspecified whether with hypoxia or hypercapnia ([facility]) Disorder of adrenal gland, unspecified ([facility]) Non-pressure chronic ulcer of other part of right lower leg limited to breakdown of skin ([facility]) Non-recurrent acute suppurative otitis media of left ear without spontaneous rupture of tympanic membrane Primary hypertension ([facility])- Primary Unspecified essential hypertension Insomnia Insomnia, unspecified Type 2 diabetes mellitus with complication, with long-term current use of insulin ([facility]) Non-seasonal allergic rhinitis, unspecified trigger Type 2 diabetes mellitus with unspecified complications ([facility] Anxiety and depression ([facility]) Gastro-esophageal reflux disease without esophagitis Edema, unspecified Edema Diabetic polyneuropathy associated with type 2 diabetes mellitus ([facility]) Chronic obstructive pulmonary disease, unspecified ([facility]) Pulmonary emphysema, unspecified emphysema type (CMS/HCC) Bilateral lower extremity edema Tobacco user Tobacco use disorder Hyperpigmentation of skin Other dyschromia Primary hypertension (CMS/HCC)- Primary Unspecified essential hypertension Diabetic polyneuropathy associated with type 2 diabetes mellitus (CMS/HCC) Pulmonary emphysema, unspecified emphysema type (CMS/HCC) Critical limb ischemia of right lower extremity ([facility]) PAD (peripheral artery disease) ([facility]) Unspecified peripheral vascular disease Gastroesophageal reflux disease, unspecified whether esophagitis present Bilateral lower extremity edema Venous ulcer of right leg ([facility]) Type 2 diabetes mellitus with complication, with long-term current use of insulin ([facility]) Tobacco user Tobacco use disorder Encounter for smoking cessation counseling Kidney stone Calculus of kidney Adrenal mass 1 cm to 4 cm in diameter (CMS/HCC) Radiculopathy, lumbar region Thoracic or lumbosacral neuritis or radiculitis, unspecified Non-seasonal allergic rhinitis, unspecified trigger Type 2 diabetes mellitus with unspecified complications (CMS/HCC) documented in this encounter [facility] HealthcareEvaluation note* Diagnosis Obstructive sleep apnea- Primary Obstructive sleep apnea (adult) (pediatric) Pulmonary emphysema, unspecified emphysema type (CMS/HCC) Primary hypertension (CMS/HCC) Unspecified essential hypertension Type 2 diabetes mellitus with complication, with long-term current use of insulin (CMS/HCC) Anxiety and depression (CMS/HCC) Bilateral lower extremity edema Pulmonary emphysema, unspecified emphysema type (CMS/HCC)- Primary Primary hypertension ([facility]) Unspecified essential hypertension Class 3 severe obesity [...] current use of insulin (CMS/HCC) Mixed hyperlipidemia ([facility]) Mixed hyperlipidemia Tobacco user Tobacco use disorder Encounter for screening mammogram for malignant neoplasm of breast Chronic obstructive pulmonary disease, unspecified ([facility]) Other specified chronic obstructive pulmonary disease (CMS/HCC) Anxiety and depression (CMS/HCC) Edema, unspecified Edema Hyperlipidemia, unspecified ([facility]) Diabetic polyneuropathy associated with type 2 diabetes mellitus ([facility]) Gout, unspecified cause, unspecified chronicity, unspecified site [...] to 59.9 in adult,unspecified obesity type ([facility]) Encounter for subsequent annual wellness visit (AWV) in Medicare patient- Primary Type 2 diabetes mellitus with unspecified complications (CMS/HCC) Pulmonary emphysema, unspecified emphysema type (CMS/HCC) Moderate persistent asthma without complication (CMS/HCC) Primary hypertension (CMS/HCC) Unspecified essential hypertension Type 2 diabetes mellitus with complication, with long-term current use of insulin (CMS/[facility]) Class 3 severe obesity with serious comorbidity and body mass index (BMI) of 50.0 to 59.9 in adult,unspecified obesity type (CMS/HCC) Tobacco user Tobacco use disorder Other headache syndrome Malignant neoplasm of cervix uteri, unspecified (CMS/HCC) Other specified disorders of adrenal gland (CMS/HCC) Major depressive disorder, single episode, mild (HCC) (CMS/[facility]) Major depressive disorder, single episode, mild Non-pressure chronic ulcer of other part of left lower leg with fat layer exposed (CMS/[facility]) Chronic respiratory failure, unspecified whether with hypoxia or hypercapnia (CMS/[facility]) Disorder of adrenal gland, unspecified (CMS/[facility]) Non-pressure chronic ulcer of other part of right lower leg limited to breakdown of skin (CMS/[facility]) Non-recurrent acute suppurative otitis media of left ear without spontaneous rupture of tympanic membrane Primary hypertension ([facility]/HCC)- Primary Unspecified essential hypertension Insomnia Insomnia, unspecified Type 2 diabetes mellitus with complication, with long-term current use of insulin (CMS/[facility]) Non-seasonal allergic rhinitis, unspecified trigger Type 2 diabetes mellitus with unspecified complications (CMS/[facility]) Anxiety and depression (CMS/[facility]) Gastro-esophageal reflux disease without esophagitis Edema, unspecified Edema Diabetic polyneuropathy associated with type 2 diabetes mellitus ([facility]) Chronic obstructive pulmonary disease, unspecified (CMS/HCC) Pulmonary emphysema, unspecified emphysema type (CMS/HCC) Bilateral lower extremity edema Tobacco user Tobacco use disorder Hyperpigmentation of skin Other dyschromia Primary hypertension (CMS/HCC)- Primary Unspecified essential hypertension Diabetic polyneuropathy associated with type 2 diabetes mellitus (CMS/HCC) Pulmonary emphysema, unspecified emphysema type (CMS/HCC) Critical limb ischemia of right lower extremity (CMS/HCC) PAD (peripheral artery disease) ([facility]) Unspecified peripheral vascular disease Gastroesophageal reflux disease, unspecified whether esophagitis present Bilateral lower extremity edema Venous ulcer of right leg (CMS/[facility]) Type 2 diabetes mellitus with complication, with long-term current use of insulin (CMS/[facility] Tobacco user Tobacco use disorder Encounter for smoking cessation counseling Kidney stone Calculus of kidney Adrenal mass 1 cm to 4 cm in diameter ([facility]) Radiculopathy, lumbar region Thoracic or lumbosacral neuritis or radiculitis, unspecified Non-seasonal allergic rhinitis, unspecified trigger Type 2 diabetes mellitus with unspecified complications ([facility]) Anxiety and depression ([facility])- Primary Morbid (severe) obesity due to excess calories ([facility]) Body mass index (BMI) 50.0-59.9, adult ([facility]) Malignant neoplasm of cervix uteri, unspecified ([facility]) Diabetic polyneuropathy associated with type 2 diabetes mellitus ([facility] Chronic diastolic heart failure ([facility]) Chronic diastolic heart failure Primary hypertension ([facility]) Unspecified essential hypertension 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 ([facility]) Gastroesophageal reflux disease, unspecified whether esophagitis present Bilateral lower extremity edema Type 2 diabetes mellitus with complication, with long-term current use of insulin ([facility]) Tobacco user Tobacco use disorder Mixed hyperlipidemia ([facility]) Mixed hyperlipidemia Gout, unspecified cause, unspecified chronicity, unspecified site Vitamin deficiency Unspecified vitamin deficiency Gastro-esophageal reflux disease without esophagitis Edema, unspecified Edema Hyperlipidemia, unspecified ([facility] Encounter for smoking cessation counseling Venous ulcer of right leg ([facility]) Antibiotic-induced yeast infection documented in this encounter [facility] HealthcareEvaluation note* Diagnosis Obstructive sleep apnea- Primary Obstructive sleep apnea (adult) (pediatric) Pulmonary emphysema, unspecified emphysema type ([facility] Primary hypertension ([facility]) Unspecified essential hypertension Type 2 diabetes mellitus with complication, with long-term current use of insulin ([facility] Anxiety and depression ([facility]) Bilateral lower extremity edema Pulmonary emphysema, unspecified emphysema type ([facility])- Primary Primary hypertension ([facility]) Unspecified essential hypertension Class 3 severe obesity with serious comorbidity and body mass index (BMI) of 50.0 to 59.9 in adult,unspecified obesity type Obstructive sleep apnea Obstructive sleep apnea (adult) (pediatric) Pulmonary hypertension ([facility]) Other chronic pulmonary heart diseases Tobacco user Tobacco use disorder Cardiomegaly Primary hypertension ([facility])- Primary Unspecified essential hypertension Gastroesophageal reflux disease, unspecified whether esophagitis present Type 2 diabetes mellitus with complication, with long-term current use of insulin ([facility]) Mixed hyperlipidemia (CMS/[facility]) Mixed hyperlipidemia Tobacco user Tobacco use disorder Encounter for screening mammogram for malignant neoplasm of breast Chronic obstructive pulmonary disease, unspecified Other specified chronic obstructive pulmonary disease Anxiety and depression (CMS/[facility]) Edema, unspecified Edema Hyperlipidemia, unspecified (CMS/[facility]) Diabetic polyneuropathy associated with type 2 diabetes mellitus (CMS/[facility]) Gout, unspecified cause, unspecified chronicity, unspecified site Non-seasonal allergic rhinitis, unspecified trigger Bilateral lower extremity edema COPD exacerbation (CMS/[facility]) Obstructive chronic bronchitis with exacerbation Pulmonary emphysema, unspecified emphysema type (CMS/[facility]) Venous insufficiency Unspecified venous (peripheral) insufficiency Candidiasis of breast COPD exacerbation (CMS/[facility])- Primary Obstructive chronic bronchitis with exacerbation Pulmonary hypertension (CMS/[facility]) Other chronic pulmonary heart diseases Class 3 severe obesity with serious comorbidity and body mass index (BMI) of 50.0 to 59.9 in adult,unspecified obesity type Encounter for subsequent annual wellness visit (AWV) in Medicare patient- Primary Type 2 diabetes mellitus with unspecified complications Pulmonary emphysema, unspecified emphysema type ([facility] Moderate persistent asthma without complication ([facility] Primary hypertension ([facility]) Unspecified essential hypertension Type 2 diabetes mellitus with complication, with long-term current use of insulin ([facility]) Class 3 severe obesity with serious comorbidity and body mass index (BMI) of 50.0 to 59.9 in adult,unspecified obesity type Tobacco user Tobacco use disorder Other headache syndrome Malignant neoplasm of cervix uteri, unspecified Other specified disorders of adrenal gland Major depressive disorder, single episode, mild (HCC) ([facility]) Major depressive disorder, single episode, mild Non-pressure chronic ulcer of other part of left lower leg with fat layer exposed Chronic respiratory failure, unspecified whether with hypoxia or hypercapnia Disorder of adrenal gland, unspecified Non-pressure chronic ulcer of other part of right lower leg limited to breakdown of skin (CMS/[facility]) Non-recurrent acute suppurative otitis media of left ear without spontaneous rupture of tympanic membrane Primary hypertension (CMS/[facility])- Primary Unspecified essential hypertension Insomnia Insomnia, unspecified Type 2 diabetes mellitus with complication, with long-term current use of insulin (CMS/[facility]) Non-seasonal allergic rhinitis, unspecified trigger Type 2 diabetes mellitus with unspecified complications Anxiety and depression ([facility]) Gastro-esophageal reflux disease without esophagitis Edema, unspecified Edema Diabetic polyneuropathy associated with type 2 diabetes mellitus ([facility]) Chronic obstructive pulmonary disease, unspecified Pulmonary emphysema, unspecified emphysema type ([facility]) Bilateral lower extremity edema Tobacco user Tobacco use disorder Hyperpigmentation of skin Other dyschromia Primary hypertension ([facility])- Primary Unspecified essential hypertension Diabetic polyneuropathy associated with type 2 diabetes mellitus ([facility]) Pulmonary emphysema, unspecified emphysema type ([facility] Critical limb ischemia of right lower extremity ([facility] PAD (peripheral artery disease) ([facility]) Unspecified peripheral vascular disease Gastroesophageal reflux disease, unspecified whether esophagitis present Bilateral lower extremity edema Venous ulcer of right leg ([facility]) Type 2 diabetes mellitus with complication, with long-term current use of insulin ([facility]) Tobacco user Tobacco use disorder Encounter for smoking cessation counseling Kidney stone Calculus of kidney Adrenal mass 1 cm to 4 cm in diameter ([facility]) Radiculopathy, lumbar region Thoracic or lumbosacral neuritis or radiculitis, unspecified Non-seasonal allergic rhinitis, unspecified trigger Type 2 diabetes mellitus with unspecified complications Anxiety and depression ([facility])- Primary Morbid (severe) obesity due to excess calories ([facility]) Body mass index (BMI) 50.0-59.9, adult ([facility]) Malignant neoplasm of cervix uteri, unspecified Diabetic polyneuropathy associated with type 2 diabetes mellitus ([facility] Chronic diastolic heart failure ([facility]) Chronic diastolic heart failure Primary hypertension ([facility] [place]) Unspecified essential hypertension 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 Gastroesophageal reflux disease, unspecified whether esophagitis present Bilateral lower extremity edema Type 2 diabetes mellitus with complication, with long-term current use of insulin ([facility]) Tobacco user Tobacco use disorder Mixed hyperlipidemia ([facility]) Mixed hyperlipidemia Gout, unspecified cause, unspecified chronicity, unspecified site Vitamin deficiency Unspecified vitamin deficiency Gastro-esophageal reflux disease without esophagitis Edema, unspecified Edema Hyperlipidemia, unspecified ([facility] [place]) Encounter for smoking cessation counseling Venous ulcer of right leg ([facility] [place] [facility]) Antibiotic-induced yeast infection Type 2 diabetes mellitus with hyperglycemia, with long-term current use of insulin ([facility] [place] [facility])- Primary Encounter for dietary consultation Vitamin D deficiency Primary hypertension ([facility] [place] [facility]) Unspecified essential hypertension Insulin long-term use ([facility]) Encounter for long-term (current) use of insulin Hyperlipemia, mixed ([facility]) Mixed hyperlipidemia Microalbuminuria Proteinuria Class 3 severe obesity due to excess calories with serious comorbidity and body mass index (BMI) of50.0 to 59.9 in adult documented in this encounter [facility] HealthcareEvaluation note* Diagnosis Obstructive sleep apnea- Primary Obstructive sleep apnea (adult) (pediatric) Pulmonary emphysema, unspecified emphysema type ([facility]) Primary hypertension ([facility]) Unspecified essential hypertension Type 2 diabetes mellitus with complication, with long-term current use of insulin ([facility] Anxiety and depression ([facility]) Bilateral lower extremity edema Pulmonary emphysema, unspecified emphysema type ([facility] [place])- Primary Primary hypertension ([facility]) Unspecified essential hypertension Class 3 severe obesity with serious comorbidity and body mass index (BMI) of 50.0 to 59.9 in adult,unspecified obesity type Obstructive sleep apnea Obstructive sleep apnea (adult) (pediatric) Pulmonary hypertension ([facility]) Other chronic pulmonary heart diseases Tobacco user Tobacco use disorder Cardiomegaly Primary hypertension ([facility])- Primary Unspecified essential hypertension Gastroesophageal reflux disease, unspecified whether esophagitis present Type 2 diabetes mellitus with complication, with long-term current use of insulin ([facility]) Mixed hyperlipidemia ([facility]) Mixed hyperlipidemia Tobacco user Tobacco use disorder Encounter for screening mammogram for malignant neoplasm of breast Chronic obstructive pulmonary disease, unspecified Other specified chronic obstructive pulmonary disease Anxiety and depression ([facility]) Edema, unspecified Edema Hyperlipidemia, unspecified ([facility]) Diabetic polyneuropathy associated with type 2 diabetes mellitus ([facility]) Gout, unspecified cause, unspecified chronicity, unspecified site Non-seasonal allergic rhinitis, unspecified trigger Bilateral lower extremity edema COPD exacerbation ([facility]) Obstructive chronic bronchitis with exacerbation Pulmonary emphysema, unspecified emphysema type ([facility]) Venous insufficiency Unspecified venous (peripheral) insufficiency Candidiasis of breast COPD exacerbation ([facility] [place])- Primary Obstructive chronic bronchitis with exacerbation Pulmonary hypertension ([facility]) Other chronic pulmonary heart diseases Class 3 severe obesity with serious comorbidity and body mass index (BMI) of 50.0 to 59.9 in adult,unspecified obesity type Encounter for subsequent annual wellness visit (AWV) in Medicare patient- Primary Type 2 diabetes mellitus with unspecified complications Pulmonary emphysema, unspecified emphysema type ([facility] Moderate persistent asthma without complication ([facility] Primary hypertension ([facility]) Unspecified essential hypertension Type 2 diabetes mellitus with complication, with long-term current use of insulin ([facility]) Class 3 severe obesity with serious comorbidity and body mass index (BMI) of 50.0 to 59.9 in adult,unspecified obesity type Tobacco user Tobacco use disorder Other headache syndrome Malignant neoplasm of cervix uteri, unspecified Other specified disorders of adrenal gland Major depressive disorder, single episode, mild (HCC) ([facility]) Major depressive disorder, single episode, mild Non-pressure chronic ulcer of other part of left lower leg with fat layer exposed Chronic respiratory failure, unspecified whether with hypoxia or hypercapnia Disorder of adrenal gland, unspecified Non-pressure chronic ulcer of other part of right lower leg limited to breakdown of skin ([facility]) Non-recurrent acute suppurative otitis media of left ear without spontaneous rupture of tympanic membrane Primary hypertension ([facility])- Primary Unspecified essential hypertension Insomnia Insomnia, unspecified Type 2 diabetes mellitus with complication, with long-term current use of insulin ([facility]) Non-seasonal allergic rhinitis, unspecified trigger Type 2 diabetes mellitus with unspecified complications Anxiety and depression ([facility]) Gastro-esophageal reflux disease without esophagitis Edema, unspecified Edema Diabetic polyneuropathy associated with type 2 diabetes mellitus ([facility] [place]) Chronic obstructive pulmonary disease, unspecified Pulmonary emphysema, unspecified emphysema type ([facility] Bilateral lower extremity edema Tobacco user Tobacco use disorder Hyperpigmentation of skin Other dyschromia Primary hypertension ([facility] [place])- Primary Unspecified essential hypertension Diabetic polyneuropathy associated with type 2 diabetes mellitus ([facility]) Pulmonary emphysema, unspecified emphysema type ([facility] Critical limb ischemia of right lower extremity ([facility] PAD (peripheral artery disease) ([facility]) Unspecified peripheral vascular disease Gastroesophageal reflux disease, unspecified whether esophagitis present Bilateral lower extremity edema Venous ulcer of right leg ([facility] [place]) Type 2 diabetes mellitus with complication, with long-term current use of insulin ([facility] [place] Tobacco user Tobacco use disorder Encounter for smoking cessation counseling Kidney stone Calculus of kidney Adrenal mass 1 cm to 4 cm in diameter ([facility]) Radiculopathy, lumbar region Thoracic or lumbosacral neuritis or radiculitis, unspecified Non-seasonal allergic rhinitis, unspecified trigger Type 2 diabetes mellitus with unspecified complications Anxiety and depression ([facility])- Primary Morbid (severe) obesity due to excess calories ([facility]) Body mass index (BMI) 50.0-59.9, adult ([facility]) Malignant neoplasm of cervix uteri, unspecified Diabetic polyneuropathy associated with type 2 diabetes mellitus ([facility] Chronic diastolic heart failure ([facility]) Chronic diastolic heart failure Primary hypertension ([facility]) Unspecified essential hypertension 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 Gastroesophageal reflux disease, unspecified whether esophagitis present Bilateral lower extremity edema Type 2 diabetes mellitus with complication, with long-term current use of insulin ([facility]) Tobacco user Tobacco use disorder Mixed hyperlipidemia ([facility]) Mixed hyperlipidemia Gout, unspecified cause, unspecified chronicity, unspecified site Vitamin deficiency Unspecified vitamin deficiency Gastro-esophageal reflux disease without esophagitis Edema, unspecified Edema Hyperlipidemia, unspecified ([facility]) Encounter for smoking cessation counseling Venous ulcer of right leg ([facility]) Antibiotic-induced yeast infection Chronic obstructive pulmonary disease, unspecified documented in this encounter [facility] HealthcareEvaluation note* Diagnosis Obstructive sleep apnea- Primary Obstructive sleep apnea (adult) (pediatric) Pulmonary emphysema, unspecified emphysema type ([facility]) Primary hypertension ([facility]) Unspecified essential hypertension Type 2 diabetes mellitus with complication, with long-term current use of insulin ([facility] Anxiety and depression ([facility]) Bilateral lower extremity edema Pulmonary emphysema, unspecified emphysema type ([facility] [place])- Primary Primary hypertension ([facility] [place] Unspecified essential hypertension Class 3 severe obesity with serious comorbidity and body mass index (BMI) of 50.0 to 59.9 in adult,unspecified obesity type Obstructive sleep apnea Obstructive sleep apnea (adult) (pediatric) Pulmonary hypertension ([facility]) Other chronic pulmonary heart diseases Tobacco user Tobacco use disorder Cardiomegaly Primary hypertension ([facility])- Primary Unspecified essential hypertension Gastroesophageal reflux disease, unspecified whether esophagitis present Type 2 diabetes mellitus with complication, with long-term current use of insulin ([facility]) Mixed hyperlipidemia ([facility]) Mixed hyperlipidemia Tobacco user Tobacco use disorder Encounter for screening mammogram for malignant neoplasm of breast Chronic obstructive pulmonary disease, unspecified Other specified chronic obstructive pulmonary disease Anxiety and depression ([facility]) Edema, unspecified Edema Hyperlipidemia, unspecified ([facility] [place]) Diabetic polyneuropathy associated with type 2 diabetes mellitus ([facility] [place]) Gout, unspecified cause, unspecified chronicity, unspecified site Non-seasonal allergic rhinitis, unspecified trigger Bilateral lower extremity edema COPD exacerbation ([facility] [place]) Obstructive chronic bronchitis with exacerbation Pulmonary emphysema, unspecified emphysema type ([facility] [place]) Venous insufficiency Unspecified venous (peripheral) insufficiency Candidiasis of breast COPD exacerbation ([facility] [place])- Primary Obstructive chronic bronchitis with exacerbation Pulmonary hypertension ([facility]) Other chronic pulmonary heart diseases Class 3 severe obesity with serious comorbidity and body mass index (BMI) of 50.0 to 59.9 in adult,unspecified obesity type Encounter for subsequent annual wellness visit (AWV) in Medicare patient- Primary Type 2 diabetes mellitus with unspecified complications Pulmonary emphysema, unspecified emphysema type ([facility]) Moderate persistent asthma without complication ([facility] [place] Primary hypertension ([facility] [place]) Unspecified essential hypertension Type 2 diabetes mellitus with complication, with long-term current use of insulin ([facility] [place]) Class 3 severe obesity with serious comorbidity and body mass index (BMI) of 50.0 to 59.9 in adult,unspecified obesity type Tobacco user Tobacco use disorder Other headache syndrome Malignant neoplasm of cervix uteri, unspecified Other specified disorders of adrenal gland Major depressive disorder, single episode, mild (HCC) ([facility]) Major depressive disorder, single episode, mild Non-pressure chronic ulcer of other part of left lower leg with fat layer exposed Chronic respiratory failure, unspecified whether with hypoxia or hypercapnia Disorder of adrenal gland, unspecified Non-pressure chronic ulcer of other part of right lower leg limited to breakdown of skin ([facility] [place]) Non-recurrent acute suppurative otitis media of left ear without spontaneous rupture of tympanic membrane Primary hypertension ([facility] [place])- Primary Unspecified essential hypertension Insomnia Insomnia, unspecified Type 2 diabetes mellitus with complication, with long-term current use of insulin ([facility] [place]) Non-seasonal allergic rhinitis, unspecified trigger Type 2 diabetes mellitus with unspecified complications Anxiety and depression ([facility]) Gastro-esophageal reflux disease without esophagitis Edema, unspecified Edema Diabetic polyneuropathy associated with type 2 diabetes mellitus ([facility] [place]) Chronic obstructive pulmonary disease, unspecified Pulmonary emphysema, unspecified emphysema type ([facility]) Bilateral lower extremity edema Tobacco user Tobacco use disorder Hyperpigmentation of skin Other dyschromia Primary hypertension ([facility])- Primary Unspecified essential hypertension Diabetic polyneuropathy associated with type 2 diabetes mellitus ([facility] [place]) Pulmonary emphysema, unspecified emphysema type ([facility] Critical limb ischemia of right lower extremity ([facility]) PAD (peripheral artery disease) ([facility]) Unspecified peripheral vascular disease Gastroesophageal reflux disease, unspecified whether esophagitis present Bilateral lower extremity edema Venous ulcer of right leg ([facility]) Type 2 diabetes mellitus with complication, with long-term current use of insulin ([facility]) Tobacco user Tobacco use disorder Encounter for smoking cessation counseling Kidney stone Calculus of kidney Adrenal mass 1 cm to 4 cm in diameter ([facility]) Radiculopathy, lumbar region Thoracic or lumbosacral neuritis or radiculitis, unspecified Non-seasonal allergic rhinitis, unspecified trigger Type 2 diabetes mellitus with unspecified complications Anxiety and depression ([facility])- Primary Morbid (severe) obesity due to excess calories ([facility]) Body mass index (BMI) 50.0-59.9, adult ([facility]) Malignant neoplasm of cervix uteri, unspecified Diabetic polyneuropathy associated with type 2 diabetes mellitus ([facility]) Chronic diastolic heart failure ([facility]) Chronic diastolic heart failure Primary hypertension ([facility]) Unspecified essential hypertension 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 Gastroesophageal reflux disease, unspecified whether esophagitis present Bilateral lower extremity edema Type 2 diabetes mellitus with complication, with long-term current use of insulin ([facility]) Tobacco user Tobacco use disorder Mixed hyperlipidemia ([facility]) Mixed hyperlipidemia Gout, unspecified cause, unspecified chronicity, unspecified site Vitamin deficiency Unspecified vitamin deficiency Gastro-esophageal reflux disease without esophagitis Edema, unspecified Edema Hyperlipidemia, unspecified ([facility] [place]) Encounter for smoking cessation counseling Venous ulcer of right leg ([facility]) Antibiotic-induced yeast infection Primary hypertension ([facility] [place])- Primary Unspecified essential hypertension Diabetic polyneuropathy associated with type 2 diabetes mellitus ([facility]) Chronic diastolic heart failure ([facility]) Chronic diastolic heart failure Bilateral lower extremity edema Morbid (severe) obesity due to excess calories ([facility]) Type 2 diabetes mellitus with complication, with long-term current use of insulin ([facility] Anxiety and depression ([facility]) Cigarette nicotine dependence without complication Encounter for screening mammogram for malignant neoplasm of breast Insomnia Insomnia, unspecified Non-seasonal allergic rhinitis, unspecified trigger Type 2 diabetes mellitus with unspecified complications Vitamin D deficiency, unspecified Gastro-esophageal reflux disease without esophagitis PAD (peripheral artery disease) ([facility]) Unspecified peripheral vascular disease Gastroesophageal reflux disease, unspecified whether esophagitis present Venous ulcer of right leg ([facility]) documented in this encounter [facility] HealthcareEvaluation note* Diagnosis Obstructive sleep [...] 50.0 to 59.9 in adult,unspecified obesity type ([facility]) Obstructive sleep apnea Obstructive sleep apnea (adult) [...] 50.0 to 59.9 in adult,unspecified obesity type ([facility]) Encounter for subsequent annual wellness visit (AWV) [...] 50.0 to 59.9 in adult,unspecified obesity type ([facility]) Tobacco user Tobacco use disorder Other headache syndrome Malignant neoplasm of cervix uteri, unspecified (HCC) Other specified disorders of adrenal gland (HCC) Major depressive disorder, single episode, mild Major depressive disorder, single episode, mild Non-pressure chronic ulcer of other part of left lower leg with fat layer exposed ([facility]) Chronic respiratory failure, unspecified whether with hypoxia or hypercapnia ([facility]) Disorder of adrenal gland, unspecified ([facility]) Non-pressure chronic ulcer of other part of right lower leg limited to breakdown of skin ([facility]) Non-recurrent acute suppurative otitis media of left ear without spontaneous rupture of tympanic membrane Primary hypertension- Primary Unspecified essential hypertension Insomnia Insomnia, unspecified Type 2 diabetes mellitus with complication, with long-term current use of insulin ([facility]) Non-seasonal allergic rhinitis, unspecified trigger Type 2 diabetes mellitus with unspecified complications ([facility] [place]) Anxiety and depression Gastro-esophageal reflux disease without esophagitis Edema, unspecified Edema Diabetic polyneuropathy associated with type 2 diabetes mellitus ([facility] [place]) Chronic obstructive pulmonary disease, unspecified ([facility]) Pulmonary emphysema, unspecified emphysema type ([facility]) Bilateral lower extremity edema Tobacco user Tobacco use disorder Hyperpigmentation of skin Other dyschromia Primary hypertension- Primary Unspecified essential hypertension Diabetic polyneuropathy associated with type 2 diabetes mellitus ([facility] [place]) Pulmonary emphysema, unspecified emphysema type ([facility] [place]) Critical limb ischemia of right lower extremity ([facility]) PAD (peripheral artery disease) Unspecified peripheral vascular disease Gastroesophageal reflux disease, unspecified whether esophagitis present Bilateral lower extremity edema Venous ulcer of right leg ([facility] [place]) Type 2 diabetes mellitus with complication, with long-term current use of insulin ([facility] [place]) Tobacco user Tobacco use disorder Encounter for smoking cessation counseling Kidney stone Calculus of kidney Adrenal mass 1 cm to 4 cm in diameter ([facility] [place]) Radiculopathy, lumbar region Thoracic or lumbosacral neuritis or radiculitis, unspecified Non-seasonal allergic rhinitis, unspecified trigger Type 2 diabetes mellitus with unspecified complications ([facility] [place]) Anxiety and depression- Primary Morbid (severe) obesity due to excess calories ([facility] [place]) Body mass index (BMI) 50.0-59.9, adult ([facility] [place]) Malignant neoplasm of cervix uteri, unspecified ([facility] [place]) Diabetic polyneuropathy associated with type 2 diabetes mellitus ([facility] [place]) Chronic diastolic heart failure (HCC) Chronic diastolic [...] excess calories ([facility]) Type 2 diabetes mellitus with complication, with long-term current use of insulin ([facility] [place]) Anxiety and depression Cigarette nicotine dependence without complication Encounter for screening mammogram for malignant neoplasm of breast Insomnia Insomnia, unspecified Non-seasonal allergic rhinitis, unspecified trigger Type 2 diabetes mellitus with unspecified complications ([facility] [place]) Vitamin D deficiency, unspecified Gastro-esophageal reflux disease without esophagitis PAD (peripheral artery disease) Unspecified peripheral vascular disease Gastroesophageal reflux disease, unspecified whether esophagitis present Venous ulcer of right leg (HCC) Cellulitis of left lower extremity- Primary COPD exacerbation ([facility]) Obstructive chronic bronchitis with exacerbation Primary hypertension Unspecified essential hypertension Pulmonary hypertension (HCC) Other chronic pulmonary heart diseases Morbid (severe) obesity due to excess calories ([facility]) Type 2 diabetes mellitus with complication, with long-term current use of insulin ([facility]) Anxiety and depression Fever, unspecified fever cause Hyperlipidemia, unspecified Tobacco user Tobacco use disorder Encounter for smoking cessation counseling documented in this encounter [facility] HealthcareEvaluation note* Diagnosis Obstructive sleep apnea- Primary Obstructive sleep apnea (adult) (pediatric) Pulmonary emphysema, unspecified emphysema type ([facility] Primary hypertension ([facility] [place]) Unspecified essential hypertension Type 2 diabetes mellitus with complication, with long-term current use of insulin ([facility] Anxiety and depression ([facility]) Bilateral lower extremity edema Pulmonary emphysema, unspecified emphysema type ([facility] [place])- Primary Primary hypertension ([facility] [place]) Unspecified essential hypertension Class 3 severe obesity [...] and depression ([facility]) Edema, unspecified Edema Hyperlipidemia, unspecified (CMS/HCC) Diabetic polyneuropathy associated with type 2 diabetes mellitus ([facility]) Gout, unspecified cause, unspecified chronicity, unspecified site Non-seasonal allergic rhinitis, unspecified trigger Bilateral lower extremity edema COPD exacerbation ([facility] [place]) Obstructive chronic bronchitis with exacerbation Pulmonary emphysema, unspecified emphysema type ([facility] [place]) Venous insufficiency Unspecified venous (peripheral) insufficiency Candidiasis of breast COPD exacerbation ([facility] [place])- Primary Obstructive chronic bronchitis with exacerbation Pulmonary hypertension ([facility] [place]) Other chronic pulmonary heart diseases Class 3 severe obesity with serious comorbidity and body mass index (BMI) of 50.0 to 59.9 in adult,unspecified obesity type Encounter for subsequent annual wellness visit (AWV) in Medicare patient- Primary Type 2 diabetes mellitus with unspecified complications Pulmonary emphysema, unspecified emphysema type ([facility] [place]) Moderate persistent asthma without complication ([facility] [place]) Primary hypertension ([facility] [place]) Unspecified essential hypertension Type 2 diabetes mellitus with complication, with long-term current use of insulin ([facility]) Class 3 severe obesity with serious comorbidity and body mass index (BMI) of 50.0 to 59.9 in adult,unspecified obesity type Tobacco user Tobacco use disorder Other headache syndrome Malignant neoplasm of cervix uteri, unspecified Other specified disorders of adrenal gland Major depressive disorder, single episode, mild (HCC) ([facility] [place]) Major depressive disorder, single episode, mild Non-pressure chronic ulcer of other part of left lower leg with fat layer exposed Chronic respiratory failure, unspecified whether with hypoxia or hypercapnia Disorder of adrenal gland, unspecified Non-pressure chronic ulcer of other part of right lower leg limited to breakdown of skin ([facility] [place]) Non-recurrent acute suppurative otitis media of left ear without spontaneous rupture of tympanic membrane Primary hypertension ([facility] [place])- Primary Unspecified essential hypertension Insomnia Insomnia, unspecified Type 2 diabetes mellitus with complication, with long-term current use of insulin ([facility] [place]) Non-seasonal allergic rhinitis, unspecified trigger Type 2 diabetes mellitus with unspecified complications Anxiety and depression ([facility]) Gastro-esophageal reflux disease without esophagitis Edema, unspecified Edema Diabetic polyneuropathy associated with type 2 diabetes mellitus ([facility]) Chronic obstructive pulmonary disease, unspecified Pulmonary emphysema, unspecified emphysema type ([facility]) Bilateral lower extremity edema Tobacco user Tobacco use disorder Hyperpigmentation of skin Other dyschromia Primary hypertension ([facility] Primary Unspecified essential hypertension Diabetic polyneuropathy associated with type 2 diabetes mellitus ([facility]) Pulmonary emphysema, unspecified emphysema type ([facility] [place]) Critical limb ischemia of right lower extremity ([facility]) PAD (peripheral artery disease) ([facility] [place]) Unspecified peripheral vascular disease Gastroesophageal reflux disease, unspecified whether esophagitis present Bilateral lower extremity edema Venous ulcer of right leg ([facility] [place]) Type 2 diabetes mellitus with complication, with long-term current use of insulin ([facility]) Tobacco user Tobacco use disorder Encounter for smoking cessation counseling Kidney stone Calculus of kidney Adrenal mass 1 cm to 4 cm in diameter ([facility] [place]) Radiculopathy, lumbar region Thoracic or lumbosacral neuritis or radiculitis, unspecified Non-seasonal allergic rhinitis, unspecified trigger Type 2 diabetes mellitus with unspecified complications Anxiety and depression ([facility] [place])- Primary Morbid (severe) obesity due to excess calories ([facility] [place]) Body mass index (BMI) 50.0-59.9, adult ([facility] [place]) Malignant neoplasm of cervix uteri, unspecified Diabetic polyneuropathy associated with type 2 diabetes mellitus ([facility] [place]) Chronic diastolic heart failure ([facility] [place]) Chronic diastolic heart failure Primary hypertension ([facility] [place]) Unspecified essential hypertension 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 Gastroesophageal reflux disease, unspecified whether esophagitis present Bilateral lower extremity edema Type 2 diabetes mellitus with complication, with long-term current use of insulin ([facility] [place]) Tobacco user Tobacco use disorder Mixed hyperlipidemia ([facility] [place]) Mixed hyperlipidemia Gout, unspecified cause, unspecified chronicity, unspecified site Vitamin deficiency Unspecified vitamin deficiency Gastro-esophageal reflux disease without esophagitis Edema, unspecified Edema Hyperlipidemia, unspecified ([facility] [place]) Encounter for smoking cessation counseling Venous ulcer of right leg ([facility] [place] Antibiotic-induced yeast infection Primary hypertension ([facility] [place])- Primary Unspecified essential hypertension Diabetic polyneuropathy associated with type 2 diabetes mellitus ([facility] [place]) Chronic diastolic heart failure ([facility] [place] Chronic diastolic heart failure Bilateral lower extremity edema Morbid (severe) obesity due to excess calories ([facility] [place]) Type 2 diabetes mellitus with complication, with long-term current use of insulin ([facility] [place]) Anxiety and depression ([facility] [place]) Cigarette nicotine dependence without complication Encounter for screening mammogram for malignant neoplasm of breast Insomnia Insomnia, unspecified Non-seasonal allergic rhinitis, unspecified trigger Type 2 diabetes mellitus with unspecified complications Vitamin D deficiency, unspecified Gastro-esophageal reflux disease without esophagitis PAD (peripheral artery disease) ([facility] [place]) Unspecified peripheral vascular disease Gastroesophageal reflux disease, unspecified whether esophagitis present Venous ulcer of right leg ([facility] [place]) Cellulitis of left lower extremity- Primary COPD exacerbation ([facility] [place]) Obstructive chronic bronchitis with exacerbation Primary hypertension ([facility] [place]) Unspecified essential hypertension Pulmonary hypertension ([facility] [place]) Other chronic pulmonary heart diseases Morbid (severe) obesity due to excess calories ([facility] [place]) Type 2 diabetes mellitus with complication, with long-term current use of insulin ([facility] [place]) Anxiety and depression ([facility] [place]) Fever, unspecified fever cause documented in this encounter [facility] HealthcareEvaluation note* Diagnosis Obstructive sleep apnea- Primary Obstructive sleep apnea (adult) (pediatric) Pulmonary emphysema, unspecified emphysema type (HCC) Primary hypertension Unspecified essential hypertension Type 2 diabetes mellitus with complication, with long-term current use of insulin ([facility] [place]) Anxiety and depression Bilateral lower extremity edema Pulmonary emphysema, unspecified emphysema type (HCC)- Primary Primary hypertension Unspecified essential hypertension Class 3 severe obesity with serious comorbidity and body mass index (BMI) of 50.0 to 59.9 in adult,unspecified obesity type ([facility] [place]) Obstructive sleep apnea Obstructive sleep apnea (adult) (pediatric) Pulmonary hypertension (HCC) Other chronic pulmonary heart diseases Tobacco user Tobacco use disorder Cardiomegaly Primary hypertension- Primary Unspecified essential hypertension Gastroesophageal reflux disease, unspecified whether esophagitis present Type 2 diabetes mellitus with complication, with long-term current use of insulin ([facility] [place]) Mixed hyperlipidemia Mixed hyperlipidemia Tobacco user Tobacco [...] 50.0 to 59.9 in adult,unspecified obesity type ([facility] [place]) Encounter for subsequent annual wellness visit (AWV) in Medicare patient- Primary Type 2 diabetes mellitus with unspecified complications (HCC) Pulmonary emphysema, unspecified emphysema type (HCC) Moderate persistent asthma without complication (HCC) Primary hypertension Unspecified essential hypertension Type 2 diabetes mellitus with complication, with long-term current use of insulin ([facility] [place]) Class 3 severe obesity with serious comorbidity and body mass index (BMI) of 50.0 to 59.9 in adult,unspecified obesity type ([facility] [place]) Tobacco user Tobacco use disorder Other headache [...] diabetes mellitus ([facility] [place]) Pulmonary emphysema, unspecified emphysema type ([facility] [place]) Critical limb ischemia of right lower extremity ([facility] [place]) PAD (peripheral artery disease) Unspecified peripheral vascular disease Gastroesophageal reflux disease, unspecified whether esophagitis present Bilateral lower extremity edema Venous ulcer of right leg (HCC) Type 2 diabetes mellitus with complication, with long-term current use of insulin ([facility] [place]) Tobacco user Tobacco use disorder Encounter for smoking cessation counseling Kidney stone Calculus of kidney Adrenal mass 1 cm to 4 cm in diameter ([facility] [place]) Radiculopathy, lumbar region Thoracic or lumbosacral neuritis or radiculitis, unspecified Non-seasonal allergic rhinitis, unspecified trigger Type 2 diabetes mellitus with unspecified complications ([facility] [place]) Anxiety and depression- Primary Morbid (severe) obesity due to excess calories ([facility] [place] Body mass index (BMI) 50.0-59.9, adult ([facility] [place]) Malignant neoplasm of cervix uteri, unspecified ([facility] [place]) Diabetic polyneuropathy associated with type 2 diabetes mellitus ([facility] [place]) Chronic diastolic heart failure ([facility] [place]) Chronic diastolic heart failure Primary hypertension Unspecified essential hypertension 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 ([facility] [place]) Gastroesophageal reflux disease, unspecified whether esophagitis present Bilateral lower extremity edema Type 2 diabetes mellitus with complication, with long-term current use of insulin ([facility] [place]) Tobacco user Tobacco use disorder Mixed hyperlipidemia Mixed hyperlipidemia Gout, unspecified cause, unspecified chronicity, unspecified site Vitamin deficiency Unspecified vitamin deficiency Gastro-esophageal reflux disease without esophagitis Edema, unspecified Edema Hyperlipidemia, unspecified Encounter for smoking cessation counseling Venous ulcer of right leg ([facility] [place]) Antibiotic-induced yeast infection Primary hypertension- Primary Unspecified essential hypertension Diabetic polyneuropathy associated with type 2 diabetes mellitus (HCC) Chronic diastolic heart failure (HCC) Chronic diastolic heart failure Bilateral lower extremity edema Morbid (severe) obesity due to excess calories ([facility]) Type 2 diabetes mellitus with complication, with long-term current use of insulin ([facility] [place]) Anxiety and depression Cigarette nicotine dependence without complication Encounter for screening mammogram for malignant neoplasm of breast Insomnia Insomnia, unspecified Non-seasonal allergic rhinitis, unspecified trigger Type 2 diabetes mellitus with unspecified complications ([facility] [place]) Vitamin D deficiency, unspecified Gastro-esophageal reflux disease [...] excess calories ([facility] [place]) Type 2 diabetes mellitus with complication, with [...] excess calories ([facility] [place]) Type 2 diabetes mellitus with hyperglycemia, with long-term current use of insulin ([facility] [place]) documented in this encounter [facility] HealthcareEvaluation note* Diagnosis Obstructive sleep [...] 50.0 to 59.9 in adult,unspecified obesity type ([facility] [place]) Obstructive sleep apnea Obstructive sleep apnea (adult) [...] diabetes mellitus ([facility] [place]) Gout, unspecified cause, unspecified chronicity, unspecified site [...] 50.0 to 59.9 in adult,unspecified obesity type ([facility]) Encounter for subsequent annual wellness visit (AWV) in Medicare patient- Primary Type 2 diabetes mellitus with unspecified complications (HCC) Pulmonary emphysema, unspecified emphysema type ([facility] [place]) Moderate persistent asthma without complication (HCC) Primary hypertension Unspecified essential hypertension Type 2 diabetes mellitus with complication, with long-term current use of insulin ([facility] [place]) Class 3 severe obesity with serious comorbidity and body mass index (BMI) of 50.0 to 59.9 in adult,unspecified obesity type ([facility] [place] Tobacco user Tobacco use disorder Other headache syndrome Malignant neoplasm of cervix uteri, unspecified (HCC) Other specified disorders of adrenal gland (HCC) Major depressive disorder, single episode, mild Major depressive disorder, single episode, mild Non-pressure chronic ulcer of other part of left lower leg with fat layer exposed ([facility] [place]) Chronic respiratory failure, unspecified whether with hypoxia [...] mellitus (HCC) Pulmonary emphysema, unspecified emphysema type ([facility] [place]) Critical limb ischemia of right lower extremity ([facility] [place]) PAD (peripheral artery disease) Unspecified peripheral vascular disease Gastroesophageal reflux disease, unspecified whether esophagitis present Bilateral lower extremity edema Venous ulcer of right leg (HCC) Type 2 diabetes mellitus with complication, with long-term current use of insulin ([facility] [place]) Tobacco user Tobacco use disorder Encounter for smoking cessation counseling Kidney stone Calculus of kidney Adrenal mass 1 cm to 4 cm in diameter ([facility] [place]) Radiculopathy, lumbar region Thoracic or lumbosacral neuritis or radiculitis, unspecified Non-seasonal allergic rhinitis, unspecified trigger Type 2 diabetes mellitus with unspecified complications ([facility] [place]) Anxiety and depression- Primary Morbid (severe) obesity due to excess calories ([facility] [place]) Body mass index (BMI) 50.0-59.9, adult ([facility]) Malignant neoplasm of cervix uteri, unspecified ([facility] [place]) Diabetic polyneuropathy associated with type 2 diabetes mellitus ([facility] [place]) Chronic diastolic heart failure ([facility] [place]) Chronic diastolic heart failure Primary hypertension Unspecified essential hypertension 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 ([facility] [place]) Gastroesophageal reflux disease, unspecified whether esophagitis present Bilateral lower extremity edema Type 2 diabetes mellitus with complication, with long-term current use of insulin ([facility] [place]) Tobacco user Tobacco use disorder Mixed hyperlipidemia Mixed hyperlipidemia Gout, unspecified cause, unspecified chronicity, unspecified site Vitamin deficiency Unspecified vitamin deficiency Gastro-esophageal reflux disease without esophagitis Edema, unspecified Edema Hyperlipidemia, unspecified Encounter for smoking cessation counseling Venous ulcer of right leg ([facility] [place]) Antibiotic-induced yeast infection Primary hypertension- Primary Unspecified essential hypertension Diabetic polyneuropathy associated with type 2 diabetes mellitus (HCC) Chronic diastolic heart failure (HCC) Chronic diastolic heart failure Bilateral lower extremity edema Morbid (severe) obesity due to excess calories ([facility] [place]) Type 2 diabetes mellitus with complication, with long-term current use of insulin ([facility] [place]) Anxiety and depression Cigarette nicotine dependence without complication Encounter for screening mammogram for malignant neoplasm of breast Insomnia Insomnia, unspecified Non-seasonal allergic rhinitis, unspecified trigger Type 2 diabetes mellitus with unspecified complications ([facility] [place]) Vitamin D deficiency, unspecified Gastro-esophageal reflux disease [...] of insulin ([facility] [place]) Anxiety and depression Fever, unspecified fever cause Encounter for subsequent annual wellness visit (AWV) in Medicare patient- Primary Mixed hyperlipidemia Mixed hyperlipidemia Type 2 diabetes mellitus with complication, with long-term current use of insulin ([facility] [place]) Bilateral lower extremity edema Gastro-esophageal reflux disease without esophagitis Chronic diastolic heart failure (HCC) Chronic diastolic heart failure Primary hypertension Unspecified essential hypertension Pulmonary hypertension (HCC) Other chronic pulmonary heart diseases Diabetic polyneuropathy associated with type 2 diabetes mellitus ([facility] [place]) Pulmonary emphysema, unspecified emphysema type ([facility] [place]) Moderate persistent asthma without complication ([facility] [place]) Insomnia Insomnia, unspecified Non-seasonal allergic rhinitis, unspecified trigger Type 2 diabetes mellitus with unspecified complications ([facility] [place]) Anxiety and depression Antibiotic-induced yeast infection Chronic obstructive pulmonary disease, unspecified ([facility] [place]) Hyperlipidemia, unspecified Vaginal yeast infection Candidiasis of vulva and vagina Morbid (severe) obesity due to excess calories ([facility] [place]) Encounter for dietary consultation- Primary Type 2 diabetes mellitus with hyperglycemia, with long-term current use of insulin ([facility] [place]) Vitamin D deficiency Primary hypertension Unspecified essential hypertension Insulin long-term use ([facility] [place]) Encounter for long-term (current) use of insulin Hyperlipemia, mixed Mixed hyperlipidemia Microalbuminuria Proteinuria Class 3 severe obesity due to excess calories with serious comorbidity and body mass index (BMI) of50.0 to 59.9 in adult ([facility] [place]) documented in this encounter [facility] HealthcareEvaluation note* Diagnosis Obstructive sleep apnea- Primary Obstructive sleep apnea (adult) (pediatric) Pulmonary emphysema, unspecified emphysema type ([facility] [place]) Primary hypertension Unspecified essential hypertension Type 2 diabetes mellitus with complication, with long-term current use of insulin ([facility] [place]) Anxiety and depression Bilateral lower extremity edema Pulmonary emphysema, unspecified emphysema type (HCC)- Primary Primary hypertension Unspecified essential hypertension Class 3 severe obesity with serious comorbidity and body mass index (BMI) of 50.0 to 59.9 in adult,unspecified obesity type ([facility] 50.0 to 59.9 in adult,unspecified obesity type ([facility] [place]) Encounter for subsequent annual wellness visit (AWV) in Medicare patient- Primary Type 2 diabetes mellitus with unspecified complications (HCC) Pulmonary emphysema, unspecified emphysema type ([facility] [place]) Moderate persistent asthma without complication (HCC) Primary hypertension Unspecified essential hypertension Type 2 diabetes mellitus with complication, with long-term current use of insulin ([facility] [place]) Class 3 severe obesity with serious comorbidity and body mass index (BMI) of 50.0 to 59.9 in adult,unspecified obesity type ([facility] [place]) Tobacco user Tobacco use disorder [...] diabetes mellitus ([facility] [place]) Pulmonary emphysema, unspecified emphysema type ([facility] [place]) Critical limb ischemia of right lower extremity ([facility] [place] PAD (peripheral artery disease) Unspecified peripheral vascular disease Gastroesophageal reflux disease, unspecified whether esophagitis present Bilateral lower extremity edema Venous ulcer of right leg ([facility] [place]) Type 2 diabetes mellitus with complication, with long-term current use of insulin ([facility] [place]) Tobacco user Tobacco use disorder Encounter for smoking cessation counseling Kidney stone Calculus of kidney Adrenal mass 1 cm to 4 cm in diameter ([facility] [place]) Radiculopathy, lumbar region Thoracic or lumbosacral neuritis or radiculitis, unspecified Non-seasonal allergic rhinitis, unspecified trigger Type 2 diabetes mellitus with unspecified complications ([facility] [place]) Anxiety and depression- Primary Morbid (severe) obesity due to excess calories ([facility] [place]) Body mass index (BMI) 50.0-59.9, adult ([facility] [place]) Malignant neoplasm of cervix uteri, unspecified ([facility] [place]) Diabetic polyneuropathy associated with type 2 diabetes mellitus ([facility] [place]) Chronic diastolic heart failure (HCC) Chronic diastolic heart failure Primary hypertension Unspecified essential hypertension 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 ([facility] [place]) Gastroesophageal reflux disease, unspecified whether esophagitis present Bilateral lower extremity edema Type 2 diabetes mellitus with complication, with long-term current use of insulin ([facility] [place]) Tobacco user Tobacco use disorder Mixed hyperlipidemia Mixed hyperlipidemia Gout, unspecified cause, unspecified chronicity, unspecified site Vitamin deficiency Unspecified vitamin deficiency Gastro-esophageal reflux disease without esophagitis Edema, unspecified Edema Hyperlipidemia, unspecified Encounter for smoking cessation counseling Venous ulcer of right leg ([facility] [place]) Antibiotic-induced yeast infection Primary hypertension- Primary Unspecified essential hypertension Diabetic polyneuropathy associated with type 2 diabetes mellitus (HCC) Chronic diastolic heart failure (HCC) Chronic diastolic heart failure Bilateral lower extremity edema Morbid (severe) obesity due to excess calories ([facility]) Type 2 diabetes mellitus with complication, with long-term current use of insulin ([facility]) Anxiety and depression Cigarette nicotine dependence without [...] excess calories ([facility]) Type 2 diabetes mellitus with complication, with [...] excess calories ([facility]) Tobacco user Tobacco use disorder Encounter for smoking cessation counseling documented in this encounter [facility] HealthcareEvaluation noteNo assessment information availableOhio Valley Hospital Work Phone: History general Narrative - Reported* Type Description Date Medical History diabetes mallitus Medical HistoryCOPDMedical HistoryADRENAL MASS 1 CM TO 4 CM IN DIAMETERMedical HistoryARTHRITISMedical HistoryASTHMAMedical HistoryHEADACHEMedical History HYPERTENSIONMedical HistoryKIDNEY STONESMedical HistoryLEFT FLANK PAINMedical HistoryMIXED INCONTINENCEMedical HistoryPROTEINURIAMedical HistorySMOKERSurgical Zhngsbzmpnxnuezawxx4730Lmgijqcx Historytoe surgerySurgical HistoryLAPAROSCOPIC CHOLECYSTECTOMYHospitalization [id number] HistorySEE [employer] Other Hospital course Narrative No data available for this section [facility] progress note No data available for this section [facility] reason for referral (narrative) , Referral to Dr. Cortés Referred by: REGLA PHIPPS, Elbert Joya [facility] reason for referral (narrative)No reason for referral information availableOhio Valley Hospital Work Phone: Advance Directives No Advanced Directives Records FoundDocuments on File TypeDate RecordedPatient RepresentativeExplanationAdvance Directives and Living WillPower of Licensed Occupational Therapist Advance Directive Response Recorded Date/ Time Advance [...] section and content) DATE CREATED AUTHOR 10/30/2019 [facility] DATE CREATED AUTHOR AUTHOR'S ORGANIZ ATION 09/15/2020 [facility] DATE CREATED AUTHOR AUTHOR'S ORGANIZ ATION 12/19/2022 [facility] DATE CREATED AUTHOR AUTHOR'S ORGANIZ ATION 01/30/2025 [facility] DATE CREATED AUTHOR AUTHOR'S ORGANIZ ATION 04/12/2025 [facility] DATE CREATED AUTHOR AUTHOR'S ORGANIZ ATION 04/29/2025 [facility] DATE CREATED AUTHOR AUTHOR'S ORGANIZ ATION 05/21/2025 [facility] Care Team (unrecognized sect ion and content) Team MemberRelationshipSpecialtyStart DateEnd Date Ty Amin MD PCP - GeneralFamily Medicine01/05/23Team MemberRelationshipSpecialtyStart DateEnd Date Ty Amin MD PCP - GeneralFamily Medicine01/05/23Team MemberRelationshipSpecialtyStart DateEnd Date Ty Amin MD [address] [place] [address] PCP - GeneralFamily Medicine09/20/23 Mckayla Blas NP [address] [place] [address] PCP - / Mckayla Blas NP [address] [place] [address] Nurse PractitionerFamily Medicine09/20/23Team MemberRelationshipSpecialtyStart DateEnd Date Ty Amin MD [address] [place] [address] PCP - [facility]09/20/23 Mckayla Blas NP [address] [place] [address] PCP [facility]/ Mckayla Blas NP [address] [place] [address] [facility]09/20/23Team MemberRelationshipSpecialtyStart DateEnd Date Ty Amin MD [address] [place] [address] PCP - [facility]09/20/23 Mckayla Blas NP [address] [place] [address] [place] [address]/ Mckayla Blas NP [address] [place] [address] [facility]09/20/23Team MemberRelationshipSpecialtyStart DateEnd Date Ty Amin MD [address] [place] [address] PCP - [facility]09/20/23 Mckayla Blas NP [address] [place] [address] PCP - [facility]/ Mckayla Blas NP [address] [place] [address] [facility]09/20/23Team MemberRelationshipSpecialtyStart DateEnd Date Ty Amin MD [address] [place] [address] PCP - [facility]09/20/23 Mckayla Blas NP [address] [place] [address] PCP [facility] Mckayla Blas NP [address] [place] [address] Nurse Pract[facility]er[facility]09/20/23Team MemberRelationshipSpecialtyStart DateEnd Date Ty Amin MD [address] [place] [address] [facility]/20/23 Mckayla Blas NP [address] [place] [address] PCP [facility] Mckayal Blas NP [address] [place] [address] Nurse Pract[facility]erAnna [facility] Medicine09/20/23Team MemberRelationshipSpecialtyStart DateEnd Date Ty Amin MD [address] [place] [address] PCP - [facility]09/20/23 Mckayla Blas NP [address] [place] [address] PCP [facility]/ Mckayla Blas NP [address] [place] [address] [facility]09/20/23Team MemberRelationshipSpecialtyStart DateEnd Date Ty Amin MD [address] [place] [address] PCP - [facility]09/20/23 Mckayla Blas, SILVANO [address] [place] [address] [place] [address]/ Mckayla Blas NP [address] [place] [address] [facility]09/20/23Team MemberRelationshipSpecialtyStart DateEnd Date Ty Amin MD [address] [place] [address] PCP - Generalmily Medicine09/20/23 Mckayla Blas NP [address] [place] [address] [place] [address]/ Mckayla Blas NP [address] [place] [address] Nurse Pract[facility]09/20/23Team MemberRelationshipSpecialtyStart DateEnd Date Ty Amin MD [address] [place] [address] PCP - [facility]09/20/23 Mckayla Blas NP [address] [place] [address] [place] [address]/ Mckayla Blas NP [address] [place] [address] [facility]09/20/23Team MemberRelationshipSpecialtyStart DateEnd Date Ty Amin MD [address] [place] [address] PCP - [facility]09/20/23 Mckayla Blas NP [address] [place] [address] [place] [address]/ Mckayla Blas NP [address] [place] [address] [facility]09/20/23Team MemberRelationshipSpecialtyStart DateEnd Date Ty Amin MD [address] [place] [address] PCP - [facility]09/20/23 Mckayla Blas NP [address] [place] [address] [place] [address] Mckayla Blas NP [address] [place] [address] Nurse [facility]09/20/23Team MemberRelationshipSpecialtyStart DateEnd Date Ty Amin MD [address] [place] [address] PCP - [facility]09/20/23 Mckayla Blas NP [address] [place] [address] [place] [address] Mckayla Blas NP [address] [place] [address] [facility]09/20/23Team MemberRelationshipSpecialtyStart DateEnd Date Ty Amin MD [address] [place] [address] PCP - [facility]09/20/23 Mckayla Blas NP [address] [place] [address] [place] [address]/ Mckayla Blas NP [address] [place] [address] [facility]09/20/23Team MemberRelationshipSpecialtyStart DateEnd Date Ty Amin MD [address] [place] [address] PCP - [facility]09/20/23 Mckayla Blas NP [address] [place] [address] [place] [address] Mckayla Blas NP [address] [place] [address] [facility]09/20/23Team MemberRelationshipSpecialtyStart DateEnd Date Ty Aimn MD [address] [place] [address] PCP - [facility]09/20/23 Mckayla Blas NP [address] [place] [address] [facility]/ Mckayla Blas NP [address] [place] [address] Nurse Pract[facility]09/20/23Team MemberRelationshipSpecialtyStart DateEnd Date Ty Amin MD [address] [place] [address] PCP - [facility]09/20/23 Mckayla Blas NP [address] [place] [address] [place] [address]/ Mckayla Blas NP [address] [place] [address] [facility]09/20/23Team MemberRelationshipSpecialtyStart DateEnd Date Ty Amin MD [address] [place] [address] PCP - [facility]09/20/23 Mckyala Blas NP [address] [place] [address] [place] [address]/ Mckayla Blas NP [address] [place] [address] [facility]09/20/23Team MemberRelationshipSpecialtyStart DateEnd Date Ty Amin MD [address] [place] [address] PCP - [facility] Medicine09/20/23 Mckayla Blas, SILVANO [address] [place] [address] PCP - [facility]/ Mckayla Blas NP [address] [place] [address] Nurse [facility]09/20/23Te MemberRelationshipSpecialtyStart DateEnd Date Ty Amin MD [address] [place] [address] PCP - [facility]09/20/23 Mckayla Blas NP [address] [place] [address] PCP [facility]/ Mckayla Blas NP [address] [place] [address] [facility]09/20/23Te MemberRelationshipSpecialtyStart DateEnd Date Ty Amin MD [address] [place] [address] PCP - GeneralFamily Medicine09/20/23 Mckayla Blas NP [address] [place] [address] [facility]09/20/23Team MemberRelationshipSpecialtyStart DateEnd Date Ty Amin MD [address] [place] [address] PCP - [facility]09/20/23 Mckayla Blas NP [address] [place] [address] Nurse Pract[facility]09/20/23Team MemberRelationshipSpecialtyStart DateEnd Date Ty Amin MD [address] [place] [address] [facility]/20/23 Mckayla Blas NP [address] [place] [address] Nurse Pract[facility] Medicine09/20/23Team MemberRelationshipSpecialtyStart DateEnd Date Ty Amin MD [address] [place] [address] PCP - [facility]09/20/23 Mckayla Blas NP [address] [place] [address] [facility]09/20/23Team MemberRelationshipSpecialtyStart DateEnd Date Ty Amin MD [address] [place] [address] PCP - [facility]09/20/23 Mckayla Blas NP [address] [place] [address] [facility]09/20/23 Team Status: Active Member Role Status Dates Mckayla Blas BLENDING COORDINATOR-C Primary Care Provider Active Team Status: Active Member Role Status Dates Mckayla Blas , BLENDING COORDINATOR-C Primary Care Provider Active Start: March 25, 2025 Price Arora DOAttending ProviderActiveStart: March 25, 2025 Team Status: Active Member Role Status Dates Mckayla Blas BLENDING COORDINATOR-C Primary Care Provider Active Start: March 26, 2025 Darrell Wellsending ProviderActiveStart: March 26, 2025 Team Status: Inactive Member Role Status Dates Mckayla Blas BLENDING COORDINATOR-C Primary Care Provider Active Start: April 06, 2025 End: April 06, 2025Mckayla Blas BLENDING COORDINATOR-CAttending ProviderActiveStart: April 06, 2025 End: April 06, 2025 Team Status: Active Member Role/Relationship Status Dates Mckayla Blas , BLENDING COORDINATOR-C Primary Care Provider Active Team Status: Active Member Role/Relationship Status Dates Mckayla Blas , BLENDING COORDINATOR-C Primary Care Provider Active Start: March 25, 2025 Price Arora DOAttbrandee ProviderActiveStart: March 25, 2025 Team Status: Active Member Role/Relationship Status Dates Mckayla Blas , BLENDING COORDINATOR-C Primary Care Provider Active Start: March 26, 2025 Darrell Wellsending ProviderActiveStart: March 26, 2025 Team Status: Inactive Member Role/Relationship Status Dates Mckayla Blas , BLENDING COORDINATOR-C Primary Care Provider Active Start: April 06, [...] Mckayla Blas NP [address] [place] [address] PCP - [facility]/ Mckayla Blas NP Nurse [facility]09/20/23Team MemberRelationshipSpecialtyStart DateEnd Date Ty Amin MD [facility]CP - [facility] Ty Amin MD PCP - [facility]09/20/23 Mckayla Blas NP [address] [place] [address] PCP - [facility]/ Mckayla Blas NP [facility]09/20/23Team MemberRelationshipSpecialtyStart DateEnd Date Ty Amin MD PCP - [facility]09/20/23 Mckayla Blas NP [address] [place] [address] PCP - [facility]//12/31 Mckayla Blas NP [facility]09/20/23 REASON FOR VISIT (unrecogniz ed section and [...] BE BASED ON THE PRIMARY CLINICAL RECORDS. [employer] provides no warranty or guarantee of the accuracy or completeness of information in this document.
== END 2025-05-25 10:00 | disposition home or self-care (01) ==
LOC: WC 09:59
PROVIDERS: PCP Nurse Practitioner; Visit Provider Physician Assistant
DX: I87.311 Chronic venous hypertension (idiopathic) with ulcer of right lower extremity (principal); L97.812 Non-pressure chronic ulcer of other part of right lower leg with fat layer exposed
CPT/HCPCS: 29581

== ENCOUNTER 2025-06-01 15:08 | Outpatient (OUT) | payer MEDICARE, SELFPAY ==
--- OUTSIDE RECORDS SUMMARY | 2025-05-28 10:30 | XMS_ITS | Encounter Summary ---
Author Organization [facility] Address [address] [place] [address] Care Team Providers Care Meat Grinder Name Role Phone Ty Amin MD Primary Care Provider [phone] Mckayla Blas NP Unavailable [phone] Reason for Visit * ReasonCommentsDiabetesFollow-up Encounter Details DateTypeDepartmentCare Team (Latest Contact Info)Hqrbizmnkra89/20/2025 10:30 AM ESTOffice Visit [facility] [address] [place] [address] Rain Souza MD [address] [place] [address] Type 2 diabetes mellitus with hyperglycemia, with [...] relatives?Once a week08/26/2024How often do you attend rastafarian or caodaism services?More than 4 times per year08/26/2024Do you belong to any clubs or organizations such as rastafarian groups, unions, fraAsterion or athletic groups, or school groups?No08/26/2024How often do you attend meetings of the clubs or organizations you belong to?Never08/26/2024re you , , , , never , or living with a partner?Jrwqfnp3908/26/2024UDIT-C AnswerDate RecordedQ1: How often do you have [...] heating?Not hard at all08/26/2024PHQ-2AnswerDate RecordedPatient Health Questionnaire-2 Zcqpe454Finuintah [facility] [place] [facility] - Occupational Stress QuestionnaireAnswerDate RecordedDo you feel stress - tense, restless, nervous, or anxious, or unable to sleep at night because yourmind is troubled all the time - these days?Only a hwvtcb0908/26/2024 Exercise Vital SignAnswerDate RecordedOn average, how many [...] steady place to sleep or slept in hoodelter (including now)?No07/10/2023Housing Stability Vital SignAnswerDate RecordedIn the last 12 months, was there a time when you were not able to pay the mortgage or rent on time?No08/26/2024Number of Times Moved in the Last Year Not on file08/26/2024t any time in the past 12 months, were you homeless or living in a penitentiary (including now)?No08/26/2024CommentsUnknownSex and Gender InformationValueDate RecordedSex Assigned at BirthNot on fileLegal Sex Dlifeh3309/20/2022 6:50 PM EDTGender IdentityNot on fileSexual OrientationNot on filedocumented as of this encounter Last Filed Vital Signs Vital SignReadingTime TakenCommentsBlood Pressure--Hmsxh367605/28/2025 10:40 AM ESTTemperature--Respiratory Aioa579607/28/2024 10:40 AM ESTOxygen Spemxgtcin48% 05/28/2025 10:40 AM ESTInhaled Oxygen Concentration--Xgyotv925 kg (362 lb) 05/28/2025 10:40 AM CGBAomleu268.2 cm (5' 7 )05/28/2025 10:40 AM ESTBody [...] 96, on lantus 58 units bid, lispro 0-50-91gniul plus ISS, Trulicity 4.5 mg weekly. meter give us error during download IM 03/2022 follow up visit on 03/14/2022, A1c in the office 9.4, bg 142, on lantus 58 units bid, lispro 6-87-26hpwzq plus ISS, Trulicity 4.5 mg weekly. lab [...] 25 mg, Oral, 2 times daily HYDROcodone-acetaminophen ([place]) 5-325 MG tablet 1 tablet, 3 times [...] 09/17/2023 Angiomyolipoma Anxiety and depression 07/10/2023 Asthma ([facility]) 07/10/2023 Body mass index (BMI) 50.0-59.9, adult ([facility]) Cellulitis of left lower extremity Cervical cancer ([facility]) 09/17/2023 Chronic pain of both knees 09/17/2023 COPD (chronic obstructive pulmonary disease) ([facility]) 07/10/2023 COPD exacerbation ([facility]) 09/17/2023 Decreased functional mobility 09/17/2023 Diabetic neuropathy (HCC) 07/10/2023 Dietary counseling and surveillance Edema 07/10/2023 Elevated sed rate Elevated WBC count Essential (primary) hypertension GERD (gastroesophageal reflux disease) 09/17/2023 Hyperlipidemia 09/17/2023 Hypertension 07/10/2023 Insomnia 09/17/2023 senior living (current) use of insulin ([facility]) Lower extremity edema 09/17/2023 Mixed hyperlipidemia Morbid (severe) obesity due to excess calories ([facility]) Obstructive sleep apnea 07/10/2023 PAD (peripheral artery disease) 09/17/2023 Pancreatitis ([facility]) 09/17/2023 Pneumonia 09/17/2023 Proteinuria, unspecified Pulmonary hypertension ([facility]) 09/17/2023 Radiculopathy, lumbar region 09/17/2023 Tobacco user 09/17/2023 Type 2 diabetes mellitus with complication, with long-term current use of insulin ([facility]) 07/10/2023 Unilateral primary osteoarthritis, right [...] 2 diabetes mellitus with other circulatory complications ([facility]) - Tirzepatide (Mounjaro) 15 MG/0.5ML solution auto-injector; Inject 15 mg under the skin 1 (one) time per week Follow up in about 4 months (around 09/25/2025). documented in this encounter Plan of Treatment DateTypeDepartmentCare Team (Latest Contact Info)Ducyzxmcxvk13/19/2026 10:50 AM EDTOffice Visit [facility] [address] [place] [address] Rain Souza MD [address] [place] [address] documented as of this encounter Procedures Procedure NamePriorityDate/TimeAssociated DiagnosisCommentsPOCT GLYCOSYLATED HEMOGLOBIN (HGB A1C)Ckhwkzg7905/28/2025 10:46 AM EST Type 2 diabetes mellitus with hyperglycemia, with long-term current use of insulin (HCC) POCT WOLFBSUQtvfdwg33/20/2025 10:46 AM EST Type 2 diabetes mellitus with hyperglycemia, with long-term current use of insulin (HCC) documented in this encounter Results * POCT glycosylated hemoglobin (Hb A1C) docked device (05/28/2025 10:46 AM EST) ComponentValueRef RangeTest MethodAnalysis TimePerformed AtPathologist SignatureHemoglobin A1C7.6Specimen (Source)Anatomical Location / Laterality Collection Method / VolumeCollection TimeReceived TimeBloodVenous blood specimen / Phcixyu8805/28/2025 10:46 AM EST Narrative Authorizing ProviderResult TypeResult StatusRain Souza MDPOINT OF CARE TEST ENTER/EDIT ORDERABLESFinal Result * POCT glucose manually resulted (05/28/2025 10:46 AM EST)ComponentValueRef RangeTest MethodAnalysis TimePerformed AtPathologist SignatureGlucose Blood, YJQ374bi/dLSpecimen (Source)Anatomical Location / LateralityCollection Method / VolumeCollection [...] Care Teams Team MemberRelationshipSpecialtyStart DateEnd Date Ty Aimn MD [address] [place] [id number] PCP - GeneralFamily Medicine09/20/23 Mckayla Blas NP [address] [place] [address] Nurse PractitionerFamily Medicine09/20/23documented as of this encounter
--- OUTSIDE RECORDS SUMMARY | 2025-06-01 15:11 | XMS_ITS | Clinical Summary ---
Author Organization [facility] Address [address] [place] [address] Care Team Providers Care Blind Aide Name Role Phone Mckayla Blas MD Primary Care Provider [phone] Allergies No known active allergies Medications MedicationSigDispense [...] INJECT 48 UNITS SUBCUTANEOUSLY TWICE DAILY02/06/2022ctive HYDROcodone-acetaminophen ([place]) 5-325 mg tablet TAKE 1 TABLET BY MOUTH THREE TIMES A DAY NEEDED FOR PAIN MUST LAST 30 DAYS 11/09/2023ctive DULoxetine (Cymbalta) [address] capsule Take 1 tablet by mouth in the morning.Active ergocalciferol (Vitamin D-2) 1.25 MG (18124 Units) capsule Take 1.25 mg by mouth.Active [...] Problems ProblemNoted DateDiagnosed DateCellulitis of left lower skgkxbafo16/03/2025Fever 12/09/2024igarette nicotine dependence without lppqnsohnsap52/21/2025Vitamin D deficiency, lkzsipprnug37/21/2025ntibiotic-induced yeast yzjnouxoe31/19/2025 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 08/27/2024Long term current use of inhaled vbbavzy7308/27/2024Vitamin deficiency 08/27/2024ad odor of urine08/08/2024hronic diastolic heart hqinfvk3208/08/2024 Myelolipoma of adrenal gland07/14/2024ritical limb ischemia of right lower /12/2024Venous ulcer of right leg06/19/2024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 2 diabetes /05/2024 Overview (08/08/2024): Eye exam 05/13/24 Hyperpigmentation of skin04/14/20244374Ntckndqfc03Headache Left flank painMixed incontinence urrent scrkuw56 Overview (11/14/2023): Added secondary to documentation in Social History. Candidiasis of uxtune15 Overview (11/14/2023): Last Assessment & Plan: Skin care, Non-seasonal allergic qfdeocva53Encounter for screening mammogram for malignant neoplasm of tfrvoj09lass 3 severe obesity with serious comorbidity and body mass index (BMI) of 50.0 to 59.9 in adultdrenal mass 1 cm to 4 cm in naxdnxjx99/11/2024 11/14/20231049Beqtskqnfqf32ervical mwjbge55 Chronic pain of both kneesecreased functional mobility GERD (gastroesophageal reflux disease) Kmznopwisuyuik94InsomniaKidney stone AD (peripheral artery disease)neumonia adiculopathy, lumbar dsynls82Unilateral primary osteoarthritis, right hipVenous insufficiency Overview (11/14/2023): Last Assessment & Plan: Open wounds refer to [facility] Wound Care Vaginal yeast ondgdshfu86nxiety and rggxtewtaz90/02/2024 11/14/2023ilateral lower extremity edema Overview (11/14/2023): Last Assessment & Plan: Continue w pamela, discussed skin care regimines as well Diabetic szewnyhwox03Hypertension Overview (11/14/2023): Last Assessment & Plan: No changes today in meds Obstructive sleep apnea Overview (11/14/2023): Last Assessment & Plan: DME needs to send her a new mask for her machine, I have emphasized the importance of getting in touch with them so she can do this Type 2 diabetes mellitus with complication, with long-term current use of bndfkou48 Overview (11/14/2023): Last Assessment & Plan: Continue with [facility] for management RAGHU mppawjpa74Other chronic painMI 50.0- 59.9, adult05/21/Easy ehlhfwne52losed fracture of upper end of /27/bdominal egdzzq59 Ddrxya87ardiomegaly Overview (11/14/2023): borderline borderline Acute respiratory distress xqedqaku81Gout Resolved Problems ProblemNoted DateDiagnosed DateResolved DatePulmonary hgoqxmqvqait14/11/2024 Overview (11/14/2023): Last Assessment & Plan: Needs to wear her PAP I am also going to have her see [facility] Cardiology as well Family History Medical HistoryRelationNameCommentsHeart attackPaternal GrandmotherRelationName StatusCommentsFatherDeceasedMotherDeceasedPaternal Grandmother Social History Tobacco UseTypesPacks/DayYears UsedDateSmoking Tobacco: Every DayCigarettes Smokeless Tobacco: Never Tobacco Cessation:Ready to Q uit: Not Asked; Counseling Given: Not Answered Alcohol UseStandard Drinks/WeekCommentsNot Currently0 (1 standard drink = 0.6 oz pure alcohol)DC Safety & EnvironmentAnswerDate RecordedFear of Current or Ex-PartnerNot on file08/30/2023Emotionally AbusedNot on file08/30/2023hysically AbusedNot on file08/30/2023Sexually AbusedNot on file08/30/2023hysically or Sexually AbusedNot on file08/30/2023CommentsUnknownSex and Gender InformationValueDate RecordedSex Assigned at BirthNot on fileLegal SexFemale 01/04/2022 10:08 PM EDTGender IdentityNot on fileSexual OrientationNot on file Last Filed Vital Signs Vital SignReadingTime TakenCommentsBlood Zniuftot339/6407 11:41 AM EDT Skqal210901/06/2025 11:41 AM SLSAuklaexowkw68.7 ??C (98.1 ??F)12/12/2018 2:44 PM EDTRespiratory Rate--Oxygen Pcnarepbta49%01/06/2025 11:41 AM EDTInhaled Oxygen Concentration--Lmqbwu011 kg (376 lb)01/06/2025 11:41 AM VLATmupuh499.2 cm (5' 7 )01/06/2025 11:41 AM EDTBody Mass Index58.8907 11:41 AM EDT Plan of Treatment Health MaintenanceDue DateLast DoneCommentsCT Kufxdbdqjybf99/17/1971Colonoscopy 1970Colorectal Cancer Ylkjewrow94/17/1971Diabetes: Hemoglobin A1C 1970FIT-DNA1970FIT1970FOBT1970Medicare Annual Wellness (AWV)1970 5235Kvhcptauseobf38/17/1971Diabetes: Retinopathy Cuhzrcnzm04/17/1981 Depression Ftmixyhjk59/17/1983Diabetes: Urine Protein Nontmmfpe07/17/1990 Hepatitis B Vaccines (1 of 3 - 19+ 3-dose series)1989Pap Smear1991 Adult Sggwrvj8408/25/1992Cervical Cancer Nsplaiecu84/17/2001HPV/Olrisc0408/25/2000 Dgdflkcxf49/17/2011Pneumococcal Vaccine: Pediatrics (0 to 5 Years) and [...] Mckayla Blas MD [address] [place] [address] PCP - GeneralNurse Practitioner11/13/23
--- OUTSIDE RECORDS SUMMARY | 2025-06-01 15:11 | XMS_ITS | Clinical Summary ---
Author Organization [facility] Address [address] [place] [address] Care Team Providers Care Ophthalmologist Retina Specialist Name Role Phone Ty Amin MD Primary Care Provider [phone] Mckayla Blas NP Unavailable [phone] Allergies No known active allergies Medications [...] (six) hours if needed for wheezingActive HYDROcodone-acetaminophen ([place]) 5-325 MG tablet 1 tablet as needed [...] mellitus with other circulatory complications ([facility]) USE TO TEST BLOOD SUGAR 4 TIMES DAILY 400 strip 4Active baclofen (Lioresal) 10 MG tablet Take 10 mg by mouth in the morning and 10 mg in the evening and 10 mg before bedtime.4Active naloxone (Narcan) 4 mg/0.1 mL nasal spray Administer 4 mg into affected nostril(s) if vhybzw954Active nicotine (Nicoderm, Step 1) 21 MG/24HR patch [...] DAYS 5Active ergocalciferol (Vitamin D2) 1.25 MG (83145 UT) capsule Indications:Vitamin D deficiency, unspecifiedTake 1 [...] long-term current use of insulin ([facility])Chew 1 tablet (81 mg) Daily [...] hyperglycemia, with long-term current use of insulin (HCC)Inject 58 Units under the skin in the morning and 58 Units before bedtime. 104.4 mL 107506Active insulin glargine (Lantus SoloStar) 100 UNIT/ML pen Indications:Type 2 diabetes mellitus with hyperglycemia, with long-term current use of insulin (HCC)INJECT 58 UNITS SUBCUTANEOUSLY TWICE A DAY 105 mL 5Active varenicline (Chantix) 1 MG tablet Indications:Tobacco user,Encounter for smoking cessation counselingTAKE 1 TABLET BY MOUTH IN THE MORNING AND 1 TABLET BEFORE BEDTIME. TAKE WITH FULL GLASS OF WATER. 60 tablet 5Active Tirzepatide (Mounjaro) 15 MG/0.5ML solution auto-injector Indications:Type 2 diabetes mellitus with other circulatory complications (HCC) Inject 15 mg under the skin 1 (one) time per week 6 mL 5Active Tirzepatide (Mounjaro) 15 MG/0.5ML solution auto-injector Indications:Type 2 diabetes mellitus with other circulatory complications (HCC) Inject 15 mg under the skin 1 (one) time per week 6 mL Discontinued(Reorder) Active Problems ProblemNoted DateDiagnosed DateStasis dermatitis with ulcer of right lower extremity due to peripheral venous tkqhtguwjbbz42/03/5194Zaoej36/03/2025 Assessment & Plan (12/09/2024 7:26 AM EDT): Tylenol prn fever Finish atb's Cellulitis of left lower nzqspjurb64/03/2025 Assessment & Plan (12/09/2024 11:27 AM EDT): Finish atbs Keep appt with wound care A febrile Will call me if worsening in sxs Cigarette nicotine dependence without mdmsoeprxylk79/21/2025 Assessment & Plan (10/27/2024 2:40 PM EDT): Is currently using chantix, and is doing well, less desire, smoking less Vitamin D deficiency, /21/2025Gastro-esophageal reflux disease without bwufopfrhri83/21/2025 Assessment & Plan (01/26/2025 7:51 AM EDT): Recommendations: freq small meals, nothing to eat or drink at least 2 hours prior to bed, limit caffeine, alcohol, as well as spicy foods Meds to limit or avoid if possible: NSAIDS Elevate HOB if possible Current meds: ompeprazole Morbid (severe) obesity due to excess bxtycwap58/19/2025 Assessment & Plan (01/26/2025 6:46 PM EDT): [...] wrapped, 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 as possible halfway current use of inhaled ygcginc4908/27/2024Non-pressure chronic ulcer of other part of left lower leg limited to breakdown of skin08/27/2024Vitamin ldlbgigdon85/19/2025ntibiotic-induced yeast cystaijkd79/19/2025hronic diastolic heart ndijvxz2208/08/2024 Assessment & Plan (01/26/2025 7:52 AM EDT): [...] of adrenal gland07/14/2024Encounter for smoking cessation counseling 5Critical limb ischemia of right lower sjewwsbmr50/12/2024 Assessment & Plan (07/14/2024 7:32 PM EST): Saw vascular, does have narrowing in arteries in legs, and thus the wounds not healing At this point they strongly urge to quit smoking or risk limb amputation Cont asa and statin Also good blood pressure and sugar control 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 Does have left OM, will treat for this and if not better can try ubrelvy #3 samples given: Lot [id number], exp 03/2025 Mixed feaiarwxzdwd93/08/8841Lujkctldg16/08/2024Encounter for screening mammogram for malignant neoplasm of waqvww4211/01/2023Non-seasonal allergic rhinitis 11/01/2023andidiasis of kissqr5011/01/2023 Assessment & Plan (11/01/2023 11:21 AM EDT): Skin care, Lffkfsgu15/11/2024 Assessment & Plan (01/26/2025 6:44 PM EDT): elavil Radiculopathy, lumbar brogmx5309/17/2023 Assessment & Plan (07/14/2024 7:36 PM EST): [...] is necessary they take over prescribing Pancreatitis ([facility])09/17/2023OPD nrsrvdkrkqex94/11/2024 Assessment & Plan (12/09/2024 11:26 AM EDT): [...] non labored and no cyanosis noted Venous tzklcajoahmfy71/11/2024 Assessment & Plan (11/01/2023 11:17 AM EDT): Open wounds refer to [facility] Pulmonary ygeqdktexnpa42/11/2024 Assessment & Plan (01/26/2025 7:52 AM EDT): [...] DM control Malignant neoplasm of cervix uteri, jjtuaeqhfun45/11/2024 Assessment & Plan (08/27/2024 7:33 AM EST): Had in the past, had hysterectomy Dgqkmynvzie21/11/2024Unilateral primary osteoarthritis, right hip09/17/2023 Chronic pain of both knees09/17/20232046Nojcsmnfteuttv75/11/2024 Assessment & Plan (01/26/2025 7:49 AM EDT): On statin therapy Check labs yearly and prn dose changes Assessment & Plan (08/27/2024 7:36 AM EST): On statin therapy Check labs yearly and prn dose changes Decreased functional dqrriysm99/11/2024drenal mass 1 cm to 4 cm in diameter 09/17/2023 Assessment & Plan (07/14/2024 7:33 PM EST): Continue with Urology Kidney stone09/17/2023 Assessment & Plan (07/14/2024 7:32 PM EST): Continue with Urology Burpdsnkuvo88/11/2024Vaginal yeast rgcbaxezd07/09/2024 Assessment & Plan (01/26/2025 6:46 PM EDT): [...] reach out to DME for help Diabetic ackfznoshi72/02/2024 Assessment & Plan (01/26/2025 7:53 AM EDT): [...] Plan (07/14/2024 8:18 AM EST): Continue with lyricjuvenal OARRS reviewed Fu in 3 months Assessment [...] spiriva Will trial breztri: #2 samples given [id number], exp 03/03, rinse mouth after use Give [...] no changes in inhalers Recommend quitting smoking Iarvuv1007/10/2023 Assessment & Plan (01/26/2025 6:44 PM EDT): Current meds: albuterol, duoneb, Has grain mixer 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 Assessment & Plan (08/27/2024 7:30 AM EST): Current meds: albuterol, duoneb, Has grain mixer 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 Assessment & Plan (01/17/2024 12:36 PM EDT): Cont w inhalers, pulmonology Quit smoking Zowlbdernnzn61/02/2024 Assessment & Plan (01/26/2025 7:52 AM EDT): [...] lost script I did contact [facility] [place], they will get another fill on this and have ready for patient Fu in 4 weeks Assessment & Plan (07/10/2023 11:59 AM EST): Stable on current dose of meds Type 2 diabetes mellitus with complication, with long-term current use of zhbksbm4207/10/2023 Assessment & Plan (01/26/2025 7:50 AM EDT): [...] odonnell for management of diabetes Anxiety and hayutkullz95/02/2024 Assessment & Plan (01/26/2025 6:46 PM EDT): [...] discussed skin care regimines as well RAGHU vgiwadnr47/11/6476Xsfmcrwrjbjo25/19/2018 Overview (09/17/2023): borderline Gout10/25/2017 Resolved Problems ProblemNoted [...] left ear without spontaneous rupture of tympanic fzlwjqkn82lass 3 severe obesity with serious comorbidity and body mass index (BMI) of 50.0 to 59.9 in adult09/27/2023 04/14/20248851Nthdxssxs87/11/202404/GERD (gastroesophageal reflux disease) Assessment & Plan (10/27/2024 [...] (09/27/2023 1:04 PM EDT): Urged to quit Edema4007/10/2023lass 3 severe obesity with serious comorbidity and body mass index (BMI) of 60.0 to 69.9 in adult/bdominal Encounters DateTypeDepartmentCare UpbnQzrcmuittvm43/20/2025 10:30 AM ESTOffice Visit [facility] [address] [place] [address] Rain Odonnell MD Type 2 diabetes mellitus with hyperglycemia, with long-term current use of insulin (HCC) (Primary Dx); Encounter for dietary consultation; Vitamin D deficiency; Primary hypertension; Insulin long-term use (HCC); Hyperlipemia, mixed; Microalbuminuria; Type 2 diabetes mellitus with other circulatory complications (HCC)05/28/2025 Bamboo flowsheet [facility] [address] [place] [address] Rain Odonnell MD 05/26/2025Telephone [facility] [address] [place] [address] Amber Pinzon LPN SURGERY INSULIN GFIWOK6103/09/2025Refill [facility] [address] [place] [phone] Mckayla Blas NP Tobacco user; Encounter for smoking cessation counselingfrom Last 3 Months Immunizations ImmunizationAdministration DatesNext DueInfluenza Whole05/02/2013Influenza, G0T9-664961/09/2017,05/10/2016Influenza, Btptnhlzxkw75/10/2023,04/16/2017, 05/10/2016Influenza, injectable, swbidyyyxlgw68/10/2023,05/02/2013MMR01/29/1998 Pneumococcal Polysaccharide TQBO5541 Family History Medical HistoryRelationNameCommentsNo Known ProblemsFatherVaricose veinsFather's [...] other written material from your doctor or pharmacy?Mxnoiz8808/26/2024Humiliation, Afraid, Rape, and Kick questionnaireAnswerDate RecordedWithin the [...] week08/26/2024How often do you attend baptist or hindu services?More than 4 times per year 08/26/2024Do you belong to any clubs or organizations such as baptist groups, unions, fraternal or athletic groups, or school groups?No08/26/2024How often do you attend meetings of the clubs or organizations you belong to?Never02/ Are you , , , , never , or living with a partner?Twnsdgq7708/26/2024UDIT-CAnswerDate RecordedQ1: How often do you have a [...] hard at all08/26/2024PHQ-2AnswerDate RecordedPatient Health Questionnaire-2 Score0 01/26/2025[facility] [place] [facility] - Occupational Stress QuestionnaireAnswerDate RecordedDo you feel stress - tense, restless, nervous, or anxious, or unable to sleep at night because yourmind is troubled all the time - these days?Only a pfnbmw1008/26/2024Exercise Vital SignAnswerDate Recorded On average, how many [...] to pay the mortgage or rent on time?No01/02/2024Number of Places Lived in the Last YearNot [...] homeless or living in a residential (including now)?No08/26/2024 CommentsUnknownSex and Gender InformationValueDate RecordedSex Assigned at BirthNot on fileLegal HnpHubiow45/15/2023 6:50 PM EDTGender IdentityNot on fileSexual OrientationNot on file Last Filed Vital Signs Vital SignReadingTime TakenCommentsBlood Gjpaluna600/7007 9:48 AM EDT Zcqbm701505/28/2025 10:40 AM IHYBdkestxvetz28.9 ??C (98.5 ??F)01/26/2025 6:11 PM EDTRespiratory Zzul719607/28/2024 10:40 AM ESTOxygen Yqeviqukvj52%05/28/2025 10:40 AM ESTInhaled Oxygen Concentration--Wkausr101 kg (362 lb)05/28/2025 10:40 AM EST Fowgwx923.2 cm (5' 7 )05/28/2025 10:40 AM ESTBody Mass Index56.7107/28/2024 10:40 AM EST Plan of Treatment DateTypeDepartmentCare Team (Latest Contact Info)Qagqymjxgys30/19/2026 10:50 AM EDTOffice Visit [facility] [address] [place] [phone] Rain Odonnell MD [address] [place] [address] Health MaintenanceDue DateLast DoneCommentsCT Hsvnpfbppwed75/17/1971Colonoscopy 1970FIT1970FOBT1970 4451Yznumfgwrcpke43/17/1971HPV/Esgwzj0808/25/2000 Pap Smear, 10/08/20156994Hpycmopup89/07/202506/01/2024, 12/14/2023, 11/22/2022OVID-19 Vaccine ( season)/05/2022, 10/28/2020, 10/08/2020Influenza Vaccine (#1)/04/2023, 05/18/2023, 04/16/2017, Additional history existsColorectal Cancer Jsrfrjzci15/26/2026 FIT-DNA6008/03/2022neumococcal Vaccine: Pediatrics (0 to 5 Years) and At-Risk Patients (6 to 64 Years)Aged Out04/16/2017No longer eligible based on patient's age to complete this topicCervical Cancer ScreeningDiscontinued Procedures Procedure NamePriorityDate/TimeAssociated DiagnosisCommentsPOCT GLYCOSYLATED HEMOGLOBIN (HGB A1C)Tdplssv4105/28/2025 10:46 AM EST Type 2 diabetes mellitus with hyperglycemia, with long-term current use of insulin (HCC) POCT TLVJFBVQlvhwrt72/20/2025 10:46 AM EST Type 2 diabetes mellitus with hyperglycemia, with long-term current use of insulin (HCC) MM TOMOSYNTHESIS SCREENING BI12/14/2023 11:21 AM EDT from Last 3 Months or Most Recently Relevant to Health Maintenance Results * POCT glycosylated hemoglobin (Hb A1C) docked device (05/28/2025 10:46 AM EST) ComponentValueRef RangeTest MethodAnalysis TimePerformed AtPathologist SignatureHemoglobin A1C7.6Specimen (Source)Anatomical Location / Laterality Collection Method / VolumeCollection TimeReceived TimeBloodVenous blood specimen / Yniflno1805/28/2025 10:46 AM EST Narrative Authorizing ProviderResult TypeResult StatusAhmad F Libby MDPOINT OF CARE TEST ENTER/EDIT ORDERABLESFinal Result * POCT glucose manually resulted (05/28/2025 10:46 AM EST)ComponentValueRef RangeTest MethodAnalysis TimePerformed AtPathologist SignatureGlucose Blood, EFV693iu/dLSpecimen (Source)Anatomical Location / LateralityCollection Method / VolumeCollection TimeReceived TimeBloodCapillary blood specimen / Unknown 05/28/2025 10:46 AM EST Narrative Authorizing ProviderResult TypeResult StatusAhmarita Odonnell MDPOINT OF CARE TEST ENTER/EDIT ORDERABLESFinal Result * MM TOMOSYNTHESIS SCREENING BI (12/14/2023 11:21 AM EDT)Anatomical Region LateralityModalityOtherSpecimen (Source)Anatomical Location / Laterality Collection Method / VolumeCollection TimeReceived Time12/14/2023 11:21 AM EDT Narrative 12/14/2023 11:22 AM EDT [facility] ?[address] ? [place] [address] ? Mammography Report ? Signed ? Patient: DIONISIO,SINA L ?MR#: [id number] ?? : 1970 ?Acct:[id number] ?? Age/Sex: 53 / F ?ADM Date: 12/13/23 ?? Loc: MAMMO ? Attending Dr: Mckayla J Aichholtalia NUCLEAR STATION OPERATOR ? Ordering Physician: Wan,Mckayla NUCLEAR STATION OPERATOR ?Results: ? Date of Service: 12/13/23 ?Follow Up: ? Procedure(s): MM tomosynthesis screening BI ?? Accession Number(s): [id number] ? cc: Mckayla Blas NUCLEAR STATION OPERATOR ? Patient Name: ? SINA MACIAS ? MR#: [id number] ? : 1970 ? Exam Date: 12/13/2023 [...] at age ??75. ? LOCATION: ? [facility] ? BREAST COMPOSITION: ? The breasts [...] 1122 ? DD/ 1121 ? TD/TT: ? Marble Finisher: Procedure Note Radiology, Radiologist, MD - 12/14/2023 [place] [address] Mammography Report Signed Patient: SINA MACIAS LMR#: [id number] : 1970Acct:[id number] Age/Sex: 53 / FADM Date: 12/13/23 Loc: MAMMO Attending Dr: Mckayla Blas NUCLEAR STATION OPERATOR Ordering Physician: Mckayla Blasesults: Date of Service: 12/13/23Follow Up: Procedure(s): MM tomosynthesis screening BI Accession Number(s): [id number] cc: Mckayla Blas NP Patient Name: SINA MACIAS MR#: [id number] : 1970 Exam Date: 12/13/2023 Ordering Doctor: SAYDA Blas AGRICULTURE EXTENSION SPECIALIST RADIOLOGY REPORT PROCEDURE: MM TOMOSYNTHESIS SCREENING [...] cancer at age 75. LOCATION: [facility] BREAST COMPOSITION: The breasts are almost [...] M.D. Signed By:12/14/23 1122 DD/ 1121 TD/TT: Marble Finisher: Authorizing ProviderResult TypeResult StatusLisa Wan NPCLINISYNC IMAGING Final Result from Last 3 Months or Most Recently Relevant to Health Maintenance Insurance Care Teams Team MemberRelationshipSpecialtyStart DateEnd Date Ty Amin MD [address] [place] [address] PCP - GeneralFamily Medicine09/20/23 Mckayla Blas NP [address] [place] [address] Nurse PractitionerFamily Medicine09/20/23
--- OUTSIDE RECORDS SUMMARY | 2025-06-01 15:11 | XMS_ITS | Encounter Summary ---
Author Organization [facility] Address [address] [place] [address] Care Team Providers Care Cloth Piecer Name Role Phone Ty Amin MD Primary Care Provider [phone] Mckayla Blas NP Unavailable [phone] Reason for Visit * ReasonOnset DateCommentsSURGERY INSULIN SHCTVF3705/26/2025 Encounter Details DateTypeDepartmentCare Team (Latest Contact Info)Zxnobelecot94/18/2025Telephone [facility] [address] [place] [address] Amber Pinzon LPN SURGERY INSULIN INTAKE Social History Tobacco UseTypesPacks/DayYears UsedDateSmoking Tobacco: Every [...] relatives?Once a week08/26/2024How often do you attend pentecostal or rastafarian services?More than 4 times per year08/26/2024Do you belong to any clubs or organizations such as pentecostal groups, unions, fraTextHog or athletic groups, or school groups?No08/26/2024How often do you attend meetings of the clubs or organizations you belong to?Never08/26/2024re you , , , , never , or living with a partner?Sezfpog1308/26/2024UDIT-C AnswerDate RecordedQ1: How often do you have [...] heating?Not hard at all08/26/2024PHQ-2AnswerDate RecordedPatient Health Questionnaire-2 Ttces270Finblue mountain hospital [place] of Occupational Health - Occupational Stress QuestionnaireAnswerDate RecordedDo you feel stress - tense, restless, nervous, or anxious, or unable to sleep at night because yourmind is troubled all the time - these days?Only a colntf4808/26/2024 Exercise Vital SignAnswerDate RecordedOn average, how many [...] RecordedSex Assigned at BirthNot on fileLegal Sex Owhihs1009/20/2022 6:50 PM EDTGender IdentityNot on fileSexual OrientationNot on filedocumented as of this encounter Miscellaneous Notes * Telephone Encounter - Amber Pinzon LPN - 05/26/2025 11:43 AM EST I SPOKE WITH THE PATIENT KNOW AND SHE STATED OKAY. * Telephone Encounter - Amber Pinzon LPN - 05/26/2025 10:10 AM EST PT CALLED STATED SHE IS HAVING SURGERY TOMORROW AND IS ON CLEAR LIQUIDS TODAY AND NPO FOR THE DAY OF THE PROCEDURE. SHE IS ASKING IF AND HOW SHE SHOULD TAKE HER INSULINS? PLEASE ADVISE THANKS documented in this encounter Plan of Treatment DateTypeDepartmentCare Team (Latest Contact Info)Usvdgpzyurf07/19/2026 10:50 AM EDTOffice Visit [facility] [address] [place] [address] Rain Souza MD [address] [place] [address] documented as of this encounter Visit Diagnoses Not on filedocumented in this encounter Additional Health Concerns AssessmentNoted TimePHQ-9 Depression Total Score: 10:08 AM EDT documented as of this encounter Care Teams Team MemberRelationshipSpecialtyStart DateEnd Date Ty Amin MD [address] [place] [address] PCP - GeneralFamily Medicine09/20/23 Mckayla Blas NP [address] [place] [address] Nurse PractitionerFamily Medicine09/20/23documented as of this encounter
--- OUTSIDE RECORDS SUMMARY | 2025-06-01 15:11 | XMS_ITS | Clinical Summary ---
Author Organization [employer] tem Address [id number] [address] [place] [address] Care Team Providers Care Audit Consultant Name Role Phone Wan Mckayla Rice APRN-DRY ROLLER Primary Care Provider Allergies No known active [...] mg/0.5 mL pen injector inject one pen pwywvz2704/12/2020Active DULoxetine (CYMBALTA) 60 mg capsule Take 1 [...] get venous reflux ultrasound. Other chronic pain1ANA mqlbifvc68/11/2021Preop cardiovascular exam 05/28/20207489Obqkych23/20/2020 Assessment & Plan (06/19/2024 2:16 PM EST): Counseled on smoking cessation for at least 3 minutes. She is willing to quit. Morbid ozepetp4105/28/2020BMI 50.0-59.9, adult05/21/2020 Family History Medical HistoryRelationNameCommentsCancerPaternal GrandfatherCancerPaternal GrandmotherHeart diseasePaternal GrandmotherStrokePaternal GrandmotherRelation NameStatusCommentsFatherDeceasedMotherDeceasedPaternal GrandfatherPaternal Grandmother Social History Tobacco UseTypesPacks/DayYears UsedDateSmoking Tobacco: Every DayCigarettes Smokeless Tobacco: NeverAlcohol UseStandard Drinks/WeekCommentsYes0 (1 standard drink = 0.6 oz pure alcohol)RAREChildcareAnswerDate RecordedChildcareUnknown 12/12/2018EmploymentAnswerDate BmvkmadrLixzimvlhxUhplxdp72/06/2019Purpose - Life AnswerDate RecordedPurpose and direction in ysiwDgquozw96/06/2021 CommentsUnknownSex and Gender InformationValueDate RecordedSex Assigned at Not on fileLegal YumXrnhsa37/06/2015 11:50 AM EDTGender IdentityNot on file Sexual OrientationNot on file Last Filed Vital Signs Vital SignReadingTime TakenCommentsBlood Attdqeny266/7006/19/2024 11:26 AM EST Tbvta465606/19/2024 11:26 AM QTRThkinllbbmo45.7 ??C (98 ??F)06/19/2024 11:26 AM ESTRespiratory Jahf087008/20/2023 11:26 AM ESTOxygen Cwcwjnqrlu76%06/11/2020 9:27 AM ESTInhaled Oxygen Concentration--Jsogaa589.6 kg (374 lb)06/19/2024 11:26 AM ILKBqrfid123 cm (5' 6.93 )06/19/2024 11:26 AM ESTBody Mass Index58.7108/20/2023 11:26 AM EST Plan of Treatment Health MaintenanceDue DateLast DoneCommentsStatin Use: Hcrxezjewrbxuq01/17/1971 Depression Gdjzlgrfq08/17/1983Tobacco Lrgyhtksk45/17/1983Adult BMI Follow Up Plan1988DTaP,Tdap and Td Vaccines (1 - Tdap)1989Pap Smear1991 Zoster (Shingles) Vaccine (1 of 2)1COVID-19 Vaccine (4 - 2024-26 season)5007/19/2021, 10/28/2020, 10/08/2020Influenza Stfdnxc9903/09/2025 05/18/2023, 04/16/2017, 05/10/2016, Additional history existsAdult BMI Screening Medical Devices Not on file Insurance Care Teams Team MemberRelationshipSpecialtyStart DateEnd Date Mckayla Blas, HEAD TENNIS PROFESSIONAL-DRY ROLLER [address] [place] [place] [address] PCP - GeneralNurse Practitioner09/25/18
--- OUTSIDE RECORDS SUMMARY | 2025-06-01 15:11 | XMS_ITS | Encounter Summary ---
Author Organization [facility] Address [address] [place] [address] Care Team Providers Care Blintze Roller Name Role Phone Ty Amin MD Primary Care Provider [phone] Mckayla Blas NP Unavailable [phone] Encounter Details DateTypeDepartmentCare Team (Latest Contact Info)Evnnarrihpe94/20/2025amboo flowsheet [facility] [address] [place] [phone] Rain Souza MD [address] [place] [address] Social History Tobacco UseTypesPacks/DayYears UsedDateSmoking Tobacco: Every [...] relatives?Once a week08/26/2024How often do you attend orthodox or jewish services?More than 4 times per year08/26/2024Do you belong to any clubs or organizations such as orthodox groups, unions, fraternal or athletic groups, or school groups?No08/26/2024How often do you attend meetings of the clubs or organizations you belong to?Never08/26/2024re you , , , , never , or living with a partner?Djlvitt6208/26/2024UDIT-C AnswerDate RecordedQ1: How often do you have [...] heating?Not hard at all08/26/2024PHQ-2AnswerDate RecordedPatient Health Questionnaire-2 Itxqt245Fingarfield memorial hospital [place] of Occupational Health - Occupational Stress QuestionnaireAnswerDate RecordedDo you feel stress - tense, restless, nervous, or anxious, or unable to sleep at night because yourmind is troubled all the time - these days?Only a bsczjk1008/26/2024 Exercise Vital SignAnswerDate RecordedOn average, how many [...] steady place to sleep or slept in hardyelter (including now)?No07/10/2023Housing Stability Vital SignAnswerDate RecordedIn the [...] RecordedSex Assigned at BirthNot on fileLegal Sex Cnuxtf9209/20/2022 6:50 PM EDTGender IdentityNot on fileSexual OrientationNot on filedocumented as of this encounter Plan of Treatment DateTypeDepartmentCare Team (Latest Contact Info)Silsdhxlosc38/19/2026 10:50 AM EDTOffice Visit [facility] [address] [place] [address] Rain Souza MD [address] [place] [address] documented as of this encounter Visit Diagnoses Not on filedocumented in this encounter Additional Health Concerns AssessmentNoted TimePHQ-9 Depression Total Score: 10:08 AM EDT documented as of this encounter Care Teams Team MemberRelationshipSpecialtyStart DateEnd Date Ty Amin MD [address] [place] [address] PCP - GeneralFamily Medicine09/20/23 Mckayla Blas NP [address] [place] [address] Nurse PractitionerFawinchendon hospital Medicine09/20/23documented as of this encounter
--- OUTSIDE RECORDS SUMMARY | 2025-06-01 15:24 | XMS_ITS | CCD ---
Author Organization [facility] Care Team Providers Care Customer Service Leader Name Role Phone James Benavidez Primary Care Provider JAMES BENAVIDEZ Primary Care Unavailable SHENDGE, VITHAL Admitting Unavailable SHENDGE, VITHAL Attending Unavailable AICHHOLZ, MCKAYLA Primary Care Unavailable AICHHOLZ, MCKAYLA Referring Unavailable AICHHOLZ, MCKAYLA J Primary Care Physician Tico, Stephanie Unavailable OLE RAMIREZ Attending Unavailable OLE RAMIREZ Consulting Unavailable AICHHOLZ, STREETCAR STARTER MCKAYLA Primary Care Unavailable OLE RAMIREZ Admitting Unavailable ANTONY SHRESTHA Consulting Unavailable ALONDRA ., JACQUELINE Admitting Unavailable ALONDRA ., JACQUELINE Attending Unavailable AICHHOLZ, STREETCAR STARTER MCKAYLA Primary Care Unavailable AFSANEH Loera, DR BOLANOS Consulting Unavailable MARYANNE POWER Consulting Unavailable GLENN KERR Consulting Unavailable YOMAIRA KERR Consulting Unavailable HATTIE GOFF Consulting Unavailable ALONDRA ., JACQUELINE Consulting Unavailable TICO, STEPHANIE Attending Unavailable TICO, STEPHANIE Consulting Unavailable AICHHOLZ, STREETCAR STARTER MCKAYLA Primary Care Unavailable TICO, STEPHANIE Admitting Unavailable REGLA ., DR DUMONT Admitting Unavailable AICHHOLZ, STREETCAR STARTER MCKAYLA Primary Care Unavailable REGLA ., DR DUMONT Attending Unavailable ARAUZ ., DR DUMONT Consulting Unavailable COLLIN HUERTAS Consulting Unavailable CECILIA KAUFMAN Admitting Unavailable CECILIA KAUFMAN Attending Unavailable AICHHOLZ, STREETCAR STARTER MCKAYLA Primary Care Unavailable COMFORT PRETTY Attending Unavailable COMFORT PRETTY Admitting Unavailable AICHHOLZ, STREETCAR STARTER MCKAYLA Primary Care Unavailable AICHHOLZ, STREETCAR STARTER MCKAYLA Admitting Unavailable AICHHOLZ, STREETCAR STARTER MCKAYLA Primary Care Unavailable AICHHOLZ, STREETCAR STARTER MCKAYLA Attending Unavailable AICHHOLZ, STREETCAR STARTER MCKAYLA Consulting Unavailable LAKSHMIPATHY ., NARENDRANATH Attending Anette vailable LAKSHMIPATHY ., NARENDRANATH Consulting Anette vailable LAKSHMIPATHY ., NARENDRANATH Admitting Anette vailable AICHHOLZ, STREETCAR STARTER MCKAYLA Primary Care Unavailable VALENZUELA ., GIL Consulting Unavailable MORTENSEN ., DR CHAPARRO Aguillon Attending Unavailable MORTENSEN ., DR CHAPARRO Aguillon Admitting Unavailable AICHHOLZ, STREETCAR STARTER MCKAYLA Primary Care Unavailable VALENZUELA ., GIL Consulting Unavailable MORTENSEN ., DR CHAPARRO Aguillon Admitting Unavailable AICHHOLZ, STREETCAR STARTER MCKAYLA Primary Care Unavailable MORTENSEN ., DR CHAPARRO Aguillon Attending Unavailable HALKER ., SUBHASH Consulting Unavailable LAKSHMIPATHY ., NARENDRANATH Admitting Anette vailable LAKSHMIPATHY ., NARENDRANATH Attending Anette vailable AICHHOLZ, STREETCAR STARTER MCKAYLA Primary Care Unavailable MORTENSEN ., DR CHAPARRO Aguillon Attending Unavailable MORTENSEN ., DR CHAAPRRO Aguillon Admitting Unavailable VALENZUELA ., GIL Consulting Unavailable AICHHOLZ, STREETCAR STARTER MCKAYLA Primary Care Unavailable VALENZUELA ., GIL Consulting Unavailable MORTENSEN ., DR CHAPARRO Aguillon Attending Unavailable MORTENSEN ., DR CHAPARRO Aguillon Admitting Unavailable AICHHOLZ, STREETCAR STARTER MCKAYLA Primary Care Unavailable HATTIE BRODERICK Attending Unavailable HATTIE BRODERICK Admitting Unavailable AICHHOLZ, STREETCAR STARTER MCKAYLA Primary Care Unavailable AICHHOLZ, STREETCAR STARTER MCKAYLA Admitting Unavailable AICHHOLZ, STREETCAR STARTER MCKAYLA Consulting Unavailable AICHHOLZ, STREETCAR STARTER MCKAYLA Primary Care Unavailable AICHHOLZ, STREETCAR STARTER MCKAYLA Attending Unavailable AICHHOLZ, STREETCAR STARTER MCKAYLA Primary Care Unavailable MISC, DR LESLIE Admitting Unavailable MISC, DR LESLIE Attending Unavailable MISC, DR LESLIE Consulting Unavailable DIAB ., MARIANO Admitting Unavailable DIAB ., MARIANO Attending Unavailable DIAB ., MARIANO Consulting Unavailable AICHHOLZ, STREETCAR STARTER MCKAYLA Primary Care Unavailable RASTEGAR, RICCO Consulting Unavailable AICHHOLZ, STREETCAR STARTER MCKAYLA Admitting Unavailable AICHHOLZ, STREETCAR STARTER MCKAYLA Primary Care Unavailable AICHHOLZ, STREETCAR STARTER MCKAYLA Attending Unavailable AICHHOLZ, STREETCAR STARTER MCKAYLA Consulting Unavailable DR PATRICIA VELOZ Consulting Unavailable TAMLYN ., CECILIA Attending Unavailable TAMLYN ., CECILIA Admitting Unavailable DR PATRICIA VELOZ Consulting Unavailable AICHHOLZ, STREETCAR STARTER MCKAYLA Primary Care Unavailable TAMLYN ., CECILIA Consulting Unavailable MORTENSEN ., DR CHAPARRO Aguillon Attending Unavailable FESTUS ., DR CHAPARRO Aguillon Consulting Unavailable FESTUS ., DR CHAPARRO Aguillon Admitting Unavailable AICHHOLZ, STREETCAR STARTER MCKAYLA Primary Care Unavailable HATTIE BRODERICK Attending Unavailable HATTIE BRODERICK Consulting Unavailable HATTIE BRODERICK Admitting Unavailable AICHHOLZ, STREETCAR STARTER MCKAYLA Primary Care Unavailable HATTIE BAUTISTA Unavailable AICHHOLZ, STREETCAR STARTER MCKAYLA Admitting Unavailable AICHHOLZ, STREETCAR STARTER MCKAYLA Attending Unavailable AICHHOLZ, STREETCAR STARTER MCKAYLA Consulting Unavailable AICHHOLZ, STREETCAR STARTER MCKAYLA Primary Care Unavailable Ty Amin MD Primary Care Provider [phone] Ty Aimn MD Primary Care Provider Aichholz LASER ENGINEER, Mckayla Unavailable Aichholz LASER ENGINEER, Mckayla Unavailable AICHHOLZ, MCKAYLA Attending Unavailable LIBBY, AHMAD F Attending Unavailable AICHHOLZ, MCKAYLA Attending Unavailable AICHHOLZ, MCKAYLA Attending Unavailable AICHHOLZ, MCKAYLA Attending Unavailable LIBBY, AHMAD F Attending Unavailable AICHHOLZ, MCKAYLA Attending Unavailable LIBBY, AHMAD F Attending Unavailable LIBBY, AHMAD F Referring Unavailable AICHHOLZ, MCKAYLA Attending Unavailable Aichholz LASER ENGINEER, Mckayla Unavailable Aichholz LASER ENGINEER-C, Mckayla J Primary Care Provider Price Arora DO Attending Provider [phone] Flynn Urias DPM Attending Provider [phone] Aichholz LASER ENGINEER-C, Mckayla J Attending Provider AMI ORO Attending Unavailable DAKOTAH BRIDGES Attending Unavailable Elbert ARAUZ Attending Unavailable GAVIOTA ADAMES Attending Unavailable Ty Amin MD Primary Care Provider Aichholz LASER ENGINEER, Mckayla Unavailable Aichholz LASER ENGINEER, Mckayla Unavailable Ty Amin MD Primary Care Provider Bob MICRO PHOTOGRAPHER-STREETCAR STARTER, Omero Lovell Attending Unav ailable Aichholz MICRO PHOTOGRAPHER-STREETCAR STARTER, Mckayla Lennon Primary Care Unava ilable Adonay DPM, Flynn Arzate Attending Unavailab le Adonay DPM, Flynn Arzate Attending Unavailab le Aichholz MICRO PHOTOGRAPHER-STREETCAR STARTER, Mckayla Lennon Primary Care Unava ilable Adonay DPM, Flynn Arzate Attending Unavailab le Adonay DPM, Flynn Arzate Attending Unavailab le Aichholz MICRO PHOTOGRAPHER-STREETCAR STARTER, Mckayla Lennon Primary Care Unava ilable Aichholz MICRO PHOTOGRAPHER-STREETCAR STARTER, Mckayla Lennon Primary Care Unava ilable Adonay DPM, Flynn Arzate Attending Unavailab le Aichholz MICRO PHOTOGRAPHER-STREETCAR STARTER, Mckayla Lennon Primary Care Unava ilable Bob MICRO PHOTOGRAPHER-STREETCAR STARTER, Omero Lovell Attending Unav ailable Aichholz MICRO PHOTOGRAPHER-STREETCAR STARTER, Mckayla Lennon Primary Care Unava ilable Adonay DPM, Flynn Arzate Attending Unavailab le Adonay DPM, Flynn Arzate Attending Unavailab le Bob MICRO PHOTOGRAPHER-STREETCAR STARTER, Omero Lovell Consulting Unav ailable Aichholz MICRO PHOTOGRAPHER-STREETCAR STARTER, Mckayla Lennon Primary Care Unava ilable Corinne Kellogg MD Attending Unavail able Bob MICRO PHOTOGRAPHER-STREETCAR STARTER, Omero Lovell Attending Unav ailable Adonay DPM, Flynn Arzate Referring Unavailab le Allergies Allergy ClassificationReported Allergen(s)Allergy TypeDate of OnsetReaction(s) Facility (1 source)No Known Medication Allergies; Translations: [No Known Medication Allergies]Propensity to adverse reactions (disorder)[facility] Repository Medications Current Medications MedicationDrug Class(es)DatesSig (Normalized)Sig (Original)0.5 ML tirzepatide 30 MG/ML Auto-Injector [Mounjaro] (1 source)Start: 11-70-5080vtmrxr 15 mg by subcutaneous injection every week Mounjaro 15 mg/0.5 mL subcutaneous solution INJECT 15MG SUBCUTANEOUSLY ONCE A WEEK Start Date: 06/11/24 Status: Orderedacetaminophen 325 mg / HYDROcodone bitartrate 5 mg oral tablet (20 sources)Opioid AgonistStart: 38-81-7373cywirdfkrswbo-hydrocodone 325 mg-5 mg oral tablet Refill(s) 0 Start Date: 02/06/22 Status: OrderedStart: 12-13-2017 End: 28-72-7278hlhr 1 tablet by mouth every four hoursHydrocodone-Acetaminophen ([place]) 5-325 mg tablet Discontinued 1 TAB PO Q4H 15 0 December 13, 2017 April 05, 2025 12:52pm Fracture of humerus painStart: 70-86-4350mntq 1 tablet by mouth every four to six hours as needed for painHYDROcodone-acetaminophen ([place]) 5-325 MG tablet 1 tablet 3 (three) times a day as needed for severe pain. Activetake 1 tablet by mouth twice daily as neededNorco 5-325 MG 1 tablet as needed Orally TWICE A DAY Activealbuterol 0.83 mg/ml inhalation solution (20 sources)beta2-Adrenergic AgonistStart: 45-61-7341yhpr 2.5 mg by inhalation every four to six hours as neededStart: 10-31-7842tscgutgcf 0.083% Inh Tracey 3 mL Refill(s) 0 [...] oral tablet (20 sources)Tricyclic AntidepressantStart: 02-06-2022 End: 89-95-8100knkb 1 tablet by mouth once daily at bedtimeaspirin 81 mg chewable tablet (20 sources)Platelet Aggregation Inhibitor, Nonsteroidal Anti-inflammatory Drug Start: 11-01-2023 End: 65-13-2705zkts 1 tablet by mouth once dailyaspirin 81 MG chewable tablet Chew 81 mg in the morning. 0 Activebaclofen 10 mg oral tablet (20 sources)gamma-Aminobutyric Acid-ergic AgonistStart: 05-64-9206dnve 1 tablet by mouth every eight hours as neededStart: 18-49-3117akgj 1 tablet by mouth in the morning, then take 1 tablet by mouth in the evening, then take 1 tablet by mouth at bedtimebaclofen (Lioresal) 10 MG tablet Take 10 mg by mouth in the morning and 10 mg in the evening and 10mg before bedtime. 06/24/2024 Lfbbzw40 actuat budesonide 0.16 mg/actuat / formoterol fumarate [...] tablet (20 sources)Histamine-1 Receptor AntagonistStart: 11-01-2023 End: 36-96-2489xguq 1 tablet by mouth once daily as neededtake 1 tablet by mouth in the morningcetirizine (ZyrTEC) 10 MG tablet Take 10 mg by mouth in the morning. 0 Activedapagliflozin 10 mg oral tablet (20 sources)Sodium-Glucose Cotransporter 2 InhibitorStart: 01-17-2024 End: 33-70-5358qatf 1 tablet by mouth once dailyStart: 08-14-2023 End: 72-26-0238onju 1 tablet by mouth in the morningdapagliflozin (Farxiga) 10 MG Indications: Type 2 diabetes mellitus with unspecified complications ( CMS/HCC) Take 1 tablet (10 mg) by mouth in the morning. 90 tablet 1 08/14/2023 11/12/2023 Activediclofenac sodium 75 mg delayed release oral tablet (20 sources)Nonsteroidal Anti-inflammatory DrugStart: 55-74-7742mhto 1 tablet by mouth twice daily0.5 ML dulaglutide 9 MG/ML Auto-Injector [Trulicity] (4 sources)GLP-1 Receptor AgonistStart: 72-33-6373Pkfaegfcv Pen 4.5 mg/0.5 mL subcutaneous solution Refills(s) [...] sources)Serotonin and Norepinephrine Reuptake InhibitorStart: 11-01-2023 End: 96-53-4301xntb 1 capsule by mouth twice dailyStart: 07-23-2023 End: 91-29-4464yrnr 1 capsule by mouth in the morningDULoxetine (Cymbalta) [address] capsule Indications: Anxiety and depression (CMS/HCC) Take 1 capsule(60 mg) by mouth in the morning and 1 capsule (60 mg) before bedtime. Do not crush or chew.. 60 capsule 3 07/23/2023 08/22/2023 ActiveStart: 57-45-6540FUSdlivsrh 30 mg Cap-EC Refills(s) 0 Start Date: 02/06/22 Status: OrderedDULoxetine 30 mg Cap-EC (2 sources)Start: 56-66-8982OHOsberfzm 30 mg Cap-EC Refills(s) 0 Start Date: 02/06/22 Status: Orderedergocalciferol 1.25 mg oral capsule (20 sources)Provitamin D2 CompoundStart: 71-12-2811Cxecu: 01-16-2025 End: 03-60-5961ppkm 1 capsule by mouth every weekergocalciferol (Vitamin D2) 1.25 MG (24584 UT) capsule Indications: Vitamin D deficiency, unspecified Take 1 capsule (1.25 mg) by mouth 1 (one) time per week 12 capsule 1 01/16/2025 04/10/2025 ActiveStart: 10-27-2024 End: 80-77-4725ribt 1 capsule by mouth two times weeklyergocalciferol (Vitamin D2) 1.25 MG (08862 UT) capsule Indications: Vitamin D deficiency, unspecified Take 1 capsule (1.25 mg) by mouth 2 (two) times a week 24 capsule 1 10/27/2024 01/19/2025 ActiveStart: 04-06-2024 End: 45-38-5652kcvu 1 capsule by mouth every weekergocalciferol (Vitamin D2) 1.25 MG (92503 UT) capsule Indications: Vitamin D deficiency, unspecified TAKE 1 CAPSULE BY MOUTH ONE TIME PER WEEK 12 capsule 1 04/06/2024 10/27/2024 Discontinued (Reorder)fluconazole 150 mg oral tablet (20 sources)Azole AntifungalStart: 08-27-2024 End: 68-39-5544vstxaskxjng (Diflucan) 150 MG tablet Indications: Antibiotic- induced yeast infection One time dose,repeat in 3 days . Do not take cholesterol pill while taking this medication. Once finished then resume 2 tablet 1 01/26/2025 ActiveStart: 08-17-2023 End: 11-23-7777kyneciedpli (Diflucan) 150 MG tablet Indications: Vaginal yeast infection Take 1 tablet (150 mg) bymouth in the morning for 2 days. One time dose, may repeat in 3 days. 2 tablet 1 08/17/2023 08/19/2023 Active End: 44-83-4607ngwwrzntjxv (Diflucan) 150 MG tablet Take 200 mg by mouth in the morning. 0 08/17/2023 Discontinued(Reorder)furosemide 20 mg oral tablet (20 sources)Loop DiureticStart: 09-22-2024 End: 21-41-3584cdnl 1 tablet by mouth once dailyStart: 04-06-2024 End: 82-94-1596omcn 1 tablet by mouth once dailyfurosemide (Lasix) 40 MG tablet Indications: Bilateral lower extremity edema Take 1 tablet (40 mg) by mouth Daily 90 tablet 1 04/06/2024 ActiveStart: 12-13-2017 End: 29-15-3620woku 1 tablet by mouth once daily as [...] oral tablet (20 sources)Arteriolar VasodilatorStart: 09-13-2023 End: 86-88-5700qfda 1 tablet by mouth twice dailysodium hypochlorite 2.5 mg/ml topical solution (14 sources)Start: 74-68-1765SfQfml 0.25 % external solution APPLY TO GAUZE [...] with supper. 0 ActiveNovoLog (5 sources)Insulin AnalogStart: 63-24-2765LohsLvc SubCutaneous, TIDAC, Refills(s) 0 Start Date: 02/06/22 Status: OrderedNovoLOG 100 UNIT/ML as directed Injection SLIDING SCALE BEFORE EACH MEAL Active3 ml insulin glargine 100 unt/ml pen injector (20 sources)Insulin AnalogStart: 07-58-0773Xyeyk: 12-19-8163yffbenc glargine (Lantus SoloStar) 100 UNIT/ML pen Indications: Type 2 diabetes mellitus with hyperglycemia, with long-term current use of insulin (HCC) INJECT 58 UNITS SUBCUTANEOUSLY TWICE A DAY 105mL 2 02/16/2025 ActiveStart: 01-29-2025 End: 78-15-0460jvghao 58 [IU] by subcutaneous injection in the morninginsulin glargine (Lantus) 100 UNIT/ML injection Indications: Type 2 diabetes mellitus with hyperglycemia, with long-term current use of insulin (HCC) Inject 58 Units under the skin in the morning and58 Units before bedtime. 104.4 mL 1 01/29/2025 07/28/2025 ActiveStart: 45-52-6255Ecsdxt SoloStar 100 UNIT/ML pen 08/26/2024 ActiveStart: 10-30-2023 End: 40-57-8754Nwkqye SoloStar 100 UNIT/ML pen 10/30/2023 04/14/2024 Discontinued (Therapy completed)Start: 10-27-5302Fqhxlw Solostar Pen 100 units/mL subcutaneous solution Refills(s) 0 Start Date: 02/06/22 Status: Ordered Start: 12-13-2017 End: 87-34-0222xfibak 50 [IU] by subcutaneous injection twice dailyInsulin Glargine (Lantus U-100 Insulin) 100 unit/mL Solution Discontinued 50 UNIT SUBCUT Twice daily December 13, 2017 12:00am April 05, 2025 12:53pmLantus SoloStar 100 UNIT/ML as directed Subcutaneous 58 UNITS ONCE A DAY Active3 ml insulin lispro 100 unt/ml pen injector (20 sources)Insulin AnalogStart: 10-06-2023 End: 07-30-2422PfwuWRI KWIKPEN 100 UNIT/ML injection Inject under the skin 10/06/2023 04/14/2024 Discontinued (Therapy completed)Start: 71-99-7447itqbno 1 [IU] by subcutaneous injection before mealtimeInsulin [...] lactate 120 mg/ml topical lotion (20 sources)Start: 17-14-2051Hlqld: 38-10-0512rzqztdgd lactate (Lac-Hydrin) 12 % lotion 07/22/2024 ActiveStart: 55-71-1740rehkoyxc lactate (Lac-Hydrin) 12 % lotion APPLY TO BILATERAL FEET EVERY DAY 07/22/2024 Activelisinopril 20 mg oral tablet (20 sources)Angiotensin Converting Enzyme InhibitorStart: 02-06-2022 End: 82-72-3523vkyf 1 tablet by mouth once dailymeloxicam (5 sources)Nonsteroidal Anti-inflammatory DrugStart: 74-23-1948fadgpzpcn Daily, Refills(s) 0 Start Date: 02/06/22 Status: Orderedtake 1 tablet by mouth every twenty-four hoursMeloxicam 7.5 MG 1 tablet Orally Once a day ActivemetFORMIN hydrochloride 1000 mg oral tablet (1 source)Biguanidetake 1 tablet by mouth twice daily at mealtimemetFORMIN (GLUCOPHAGE) 1000 MG tablet Take 1,000 mg by mouth 2 times daily (with meals). 0 ActiveMounjaro 10 MG/0.5ML solution pen-injector (4 sources)Start: 10-22-2023 End: 80-22-4963votdde 10 mg by subcutaneous injection every weekMounjaro 10 MG/0.5ML solution pen-injector INJECT 10MG SUBCUTANEOUSLY ONCE A WEEK 10/22/2023 04/14/2024 Discontinued (Therapy completed)Start: 50-54-4596sorllx 10 mg by subcutaneous injection every weekMounjaro 10 MG/0.5ML solution pen-injector INJECT 10MG SUBCUTANEOUSLY ONCE A WEEK 10/22/2023 ActiveMounjaro 15 MG/0.5ML solution auto-injector (8 sources)Start: 42-31-2262Hcmzxnww 15 MG/0.5ML solution auto-injector Inject 15 mg as directed every 7 (seven) days 02/18/2024 Activenaloxone hydrochloride 40 mg/ml nasal spray (20 sources)Opioid AntagonistStart: 12-85-0881Qzhte: 74-56-1596xcfqhqrh (Narcan) 4 mg/0.1 mL nasal spray Administer 4 mg into affected nostril(s) if needed 07/04/2024 Lfocom24 hr nicotine 0.875 mg/hr transdermal system (20 sources)Cholinergic Nicotinic AgonistStart: 07-14-2024 End: 16-61-4453hcnxfgei (Nicoderm, Step 1) 21 MG/24HR patch Indications: [...] capsule (20 sources)Proton Pump InhibitorStart: 12-25-2023 End: 60-06-6326wnzi 1 capsule by mouth once dailytake 1 capsule by mouth before mealtimeomeprazole (PriLOSEC) [address] capsule Take 20 mg by mouth in the morning. Take before meals. Do not crush or chew. . 0 ActiveOxygen (20 sources)oxygen (O2) gas Inhale 2 L/min continuously via nasal canula Active potassium chloride 10 meq extended release oral tablet (20 sources)Start: 50-05-6032Qqnpu: 02-06-2022 End: 46-30-8127rrgb 1 capsule by mouth once daily in the morningpotassium chloride ER (Micro-K) 10 MEQ ER capsule Indications: Bilateral lower extremity edema Take1 capsule (10 mEq) by mouth Daily Take 1 capsule (10 mEq) by mouth in the morning. 90 capsule 1 01/26/2025 04/26/2025 ActiveStart: 12-13-2017 End: 73-41-9769Iizgvsixe Chloride (Klor-Con 10) 10 mEq Tablet Extended Release Discontinued 10 MEQ PO Twice daily December 13, 2017 12:00am April 05, 2025 12:56pmtake 1 tablet by mouth every twenty-four hoursPotassium Chloride ER 10 MEQ 1 tablet with food Orally Once a day ActivepredniSONE 10 mg oral tablet (11 sources)Start: 58-08-9010ozkihlJKXQ (Deltasone) 10 MG tablet 4 TABS X3 DAYS, 3TABS X3 DAYS, 2 TABS X3 DAYS, 1 TAB X3 DAYS, 1/2 TAB X4 DAYS 12/05/2024 Active pregabalin 150 mg oral capsule (20 sources)Start: 96-86-2664uqyv 1 capsule by mouth once dailyStart: 08-13-2024 take 1 capsule by mouth once dailypregabalin (Lyrica) 150 MG capsule Take 150 mg by mouth Daily 08/13/2024 ActiveStart: 59-27-9536Npgikq Oral, Refills(s) 0 Start Date: 02/06/22 Status: OrderedStart: 12-13-2017 End: 98-89-1352bpiq 1 capsule by mouth in the morningpregabalin (Lyrica) 300 MG capsule Indications: Diabetic polyneuropathy associated with type 2 diabetes mellitus (HCC) Take 1 capsule (300 mg) by mouth in the morning and 1 capsule (300 mg) before bedtime. 60 capsule 5 04/14/2024 Activeroflumilast 0.5 mg oral tablet (20 sources)Phosphodiesterase 4 InhibitorStart: 01-04-2024 End: 89-53-5269rxjb 1 tablet by mouth once dailysimvastatin 10 mg oral tablet (20 sources)HMG-CoA Reductase InhibitorStart: 12-19-2024 End: 42-15-1745vkov 1 tablet by mouth once daily at bedtimeStart: 04-06-2024 End: 97-95-7392tmwz 1 tablet by mouth at bedtimesimvastatin (Zocor) 10 MG tablet Indications: Hyperlipidemia, unspecified (CMS/HCC) Take 1 tablet (10 mg) by mouth at bedtime 90 tablet 1 08/27/2024 ActiveStart: 06-15-2023 End: 47-12-3508ysvw 1 tablet by mouth in the morningsimvastatin (Zocor) 10 MG tablet Indications: Hyperlipidemia, unspecified (CMS/HCC) Take 1 tablet (10 mg) by mouth in the morning. 90 tablet 1 06/15/2023 09/13/2023 ActiveStart: 12-13-2017 End: 10-77-8099itae 1 tablet by mouth once daily in the eveningSimvastatin 20 mg Tablet Discontinued 20 MG PO Every evening December 13, 2017 12:00am March 1:00pmsulfamethoxazole 800 mg / trimethoprim 160 mg oral tablet (15 sources)Dihydrofolate Reductase Inhibitor Antibacterial, Sulfonamide AntimicrobialStart: 46-27-3157abto 1 tablet by mouth twice daily sulfamethoxazole-trimethoprim (Bactrim DS) 800-160 MG per tablet TAKE 1 TABLET BY MOUTH TWICE A DAYFOR 14 DAYS 01/14/2025 ActiveStart: 08-27-2024 End: 76-29-0583posdkmvfkjifhzmn-trimethoprim (Bactrim DS) 800-160 MG per tablet 08/27/2024 10/27/2024 Discontinued(Therapy completed)Symbicort 160/4.5 inhalation aerosol with adapter (3 sources)Start: 51-85-1855Rlyyvxyow 160/4.5 inhalation aerosol with adapter Refill(s) 0 Start Date: 02/06/22 Status: Dpajfaf56 actuat tiotropium 0.0025 mg/actuat inhalation spray (7 sources)AnticholinergicStart: 33-66-0002Xtwbkxj Respimat 60 ACT 2.5 mcg/inh inhalation aerosol Refills(s) 0 Start Date: 02/06/22 Status: Orderedtake 2 puff(s) by inhalation in the morningtiotropium (Spiriva Respimat) 2.5 MCG/ACT inhaler Inhale 2 puffs in the morning. 0 Activetake 2 puff(s) by inhalation twice daily Spiriva Respimat 2.5 MCG/ACT 2 puffs Inhalation TWICE A DAY ActiveTirzepatide (2 sources)Start: 19-52-2890Gtfdippvmqu (Mounjaro) 15 MG/0.5ML solution auto-injector (20 sources)Start: 38-07-5902wfslkl 15 mg by subcutaneous injection every week Tirzepatide (Mounjaro) 15 MG/0.5ML solution auto-injector Indications: Type 2 diabetes mellitus with other circulatory complications (HCC) Inject 15 mg under the skin 1 (one) time per week 6 mL 1 02/27/2025 ActiveStart: 86-44-0076gzdpni 15 mg by subcutaneous injection every weekTirzepatide (Mounjaro) 15 MG/0.5ML solution auto-injector Indications: Type 2 diabetes mellitus with other circulatory complications (HCC) INJECT 15MG SUBCUTANEOUSLY ONCE A WEEK 6 mL 1 07/07/2024 ActiveStart: 02-38-6440kllhgj 15 mg by subcutaneous injection every weekTirzepatide (Mounjaro) 15 MG/0.5ML solution auto-injector Indications: Type 2 diabetes mellitus with other circulatory complications INJECT 15MG SUBCUTANEOUSLY ONCE A WEEK 6 mL 1 07/07/2024 ActiveStart: 75-00-4547zkomol 15 mg by subcutaneous injection every weekTirzepatide [...] oral tablet (20 sources)Partial Cholinergic Nicotinic AgonistStart: 01-58-6375burc 1 tablet by mouth twice dailyStart: 12-19-2024 End: 26-03-9753zgik 1 tablet by mouth in the morningvarenicline (Chantix) 1 MG tablet Indications: Tobacco user , Encounter for smoking cessation counseling TAKE 1 TABLET BY MOUTH IN THE MORNING AND 1 TABLET BEFORE BEDTIME. TAKE WITH FULL GLASS OF WATER. 60 tablet 1 03/09/2025 ActiveStart: 08-27-2024 End: 38-46-4630wynj 1 tablet by mouth in the morningvarenicline (Chantix) 1 MG tablet Indications: Tobacco user , Encounter for smoking cessation counseling Take 1 tablet (1 mg) by mouth in the morning and 1 tablet (1 mg) before bedtime. Take with full glass of water.. 60 tablet 1 08/27/2024 ActiveStart: 12-05-2023 End: 74-36-7919Mngmnuycmtv Tartrate, Starter, 0.5 MG X 11 & 1 MG X 42 tablet [facility]23 07/14/2024 Discontinued (Therapy completed)Start: 60-26-8433Gbllcibrbmw Tartrate, Starter, 0.5 MG X 11 & 1 MG X 42 tablet therapy [facility] 12/05/2023 Active Completed/Discontinued Medications MedicationDrug Class(es)DatesSig (Normalized)Sig (Original)amoxicillin 875 mg / clavulanate 125 mg oral tablet (6 sources)Penicillin-class AntibacterialStart: 12-05-2024 End: 86-70-7648dpaf 1 tablet by mouth every twelve hoursamoxicillin-clavulanate (Augmentin) 875-125 MG tablet Take 1 tablet by mouth every 12 (twelve) hours 12/05/2024 01/26/2025 Discontinued (Therapy completed)cephalexin 500 mg oral capsule (9 sources)Cephalosporin AntibacterialStart: 2024 End: 77-07-9612jzkhkxfgpw (Keflex) 500 MG capsule 2024 10/27/2024 Discontinued (Therapy completed)Glucose Blood (ACCU-CHEK JAQUI PLUS ) (14 sources) End: 01-23-6525Ajsdojk Blood (ACCU-CHEK JAQUI PLUS ) 4 (four) times a day. 07/14/2024 Discontinued (Therapy completed)Glucose Blood (ACCU-CHEK JAQUI PLUS ) 4 (four) times a day. ActiveGlucose Blood (ACCU-CHEK JAQUI PLUS ) 4 (four) times a day. 0 Active3 ml liraglutide 6 mg/ml pen injector (6 sources)GLP-1 Receptor Agonist End: 54-35-7958ilelgbmiuim (Victoza) 18 MG/3ML injection Inject under the skin Daily 07/14/2024 Discontinued (Therapy completed)naproxen 500 mg oral tablet (2 sources)Nonsteroidal Anti-inflammatory DrugStart: 12-13-2017 End: 15-84-2036nkll 1 tablet by mouth twice daily at mealtimeNaproxen 500 mg tablet Discontinued 500 MG PO Twice daily 20 0 December 13, 2017 12:00am April 05, 2025 12:53pm administer with food or milknortriptyline 50 mg oral capsule (18 sources)Tricyclic AntidepressantStart: 12-13-2017 End: 92-37-8654fmfn 1 capsule by mouth once daily at bedtimeNortriptyline 50 mg Capsule Discontinued 50 MG PO Daily at bedtime December 13, 2017 12:00am April 05, 2025 12:53pmubrogepant 100 mg oral tablet (12 sources) End: 81-14-4481uqij 1 tablet by mouth every twenty-four hours as needed Ubrogepant (Ubrelvy) 100 MG tablet Take 100 mg by mouth Daily as needed 07/14/2024 Discontinued (Therapy completed) Problems Active Problems Problem ClassificationProblemDateDocumented DateEpisodic/ChronicAbdominal pain (6 sources)Left flank pain; Translations: [Lower abdominal pain, unspecified] Onset: 414200-67-8380WmjifottIowypmom foot deformities (1 source)Other hammer toe(s) (acquired), right foot; Translations: [OTHER HAMMER TOES ACQUIRED RT FOOT]Onset: 02-86-1021JuwlgbyGwqyjytl foot deformities (1 source)Other hammer toe(s) (acquired), left foot; Translations: [OTHER HAMMER TOES ACQUIRED LT FOOT]Onset: 34-52-9500BgighhrMhtngpw disorders (20 sources)Mixed anxiety and depressive disorder; Translations: [Anxiety disorder, unspecified]Onset: 965218-12-5490QorozumTmyqfv (20 sources)Asthma; Translations: [Unspecified asthma, uncomplicated]Onset: 808638-27-1919TrffwhjPalgbo of cervix (20 sources)Malignant tumor of cervix; Translations: [Malignant neoplasm of cervix uteri, unspecified]Onset: 248424-16-5428SfginppCtsltj of cervix (2 sources)History of malignant neoplasm of cervix; Translations: [Personal history of malignant neoplasm of cervix uteri]32-40-8803CwwjqyqyAggulvi kidney disease (5 sources)Chronic kidney disease; Translations: [Chronic kidney disease, unspecified]Onset: 02-20-2022 Resolved: 27-42-7772HjhapprTdiseqn obstructive pulmonary disease and bronchiectasis (20 sources)Pulmonary emphysema; Translations: [Chronic obstructive pulmonary disease with (acute) exacerbation]Onset: 483282-68-7322RsdmapkWxnnnca ulcer of skin (20 sources)Non-pressure chronic ulcer of other part of right lower leg limited to breakdown of skin; Translations: [Non-pressure chronic ulcer of other part of left lower leg limited to breakdown of skin]Onset: 166650-93-5666Ejnmbgb Congestive heart failure; nonhypertensive (20 sources)Chronic diastolic heart failure; Translations: [Chronic diastolic (congestive) heart failure]Onset: 983287-90-8374FkrzfisOizroxhh mellitus with complications (20 sources)Disorder of kidney due to diabetes mellitus; Translations: [Type 2 diabetes mellitus with diabetic chronic kidney disease]Onset: 02-20-2022 Resolved: 84-29-2450LyvdtqiCsqzkolc mellitus without complication (13 sources)Type 2 diabetes mellitus; Translations: [Type 2 diabetes mellitus without complications]Onset: 821394-35-0731SnmhjbnKgqewwfwg of lipid metabolism (20 sources)Pure hypercholesterolemia, unspecified; Translations: [Hyperlipidemia, unspecified]Onset: 583971-94-4960PuhhrtrXcbchgpnqz disorders (20 sources)Gastro-esophageal reflux disease without esophagitis; Translations: [Gastroesophageal reflux disease]Onset: 12-05-2022 Resolved: 017750-14-5544McjwbkrYapnrryee hypertension (20 sources)Hypertensive disorder; Translations: [Essential (primary) hypertension]Onset: 043367-21-2667IddyqbbAmdxsskcpvdsy symptoms and ill- defined conditions (20 sources)Mixed incontinence; Translations: [Incontinence]Onset: 02-06-2022 ChronicGout and other crystal arthropathies (20 sources)Gout; Translations: [Gout, unspecified]Onset: ChronicHypertension with complications and secondary hypertension (5 sources)Chronic kidney disease due to hypertension; Translations: [Hypertensive chronic kidney disease withstage 1 through stage 4 chronic kidney disease, or unspecified chronic kidney disease]Onset: 02-20-2022 Resolved: 57-95-5896OasgdydUjig disorders (1 source)Major depressive disorder, single episode, unspecified; Translations: [ANASTACIO DEPRESS D/O SINGLE EPIS UNS]Onset: 58-03-8300JwqqsvkPwmaymiyghdcy gastroenteritis (1 source)Noninfective gastroenteritis and colitis, unspecified; Translations: [NONINFECTIVE GE AND COLITIS UNS]Onset: 94-33-0080ClbbefztTdvjonqsigj deficiencies (20 sources)Vitamin D deficiency; Translations: [Vitamin D deficiency, unspecified]Onset: 010345-69-9791ZhmmcrvGqtscgwbmtexta (20 sources)Arthritis; Translations: [Unspecified osteoarthritis, unspecified site]Onset: 553085-40-8682EbutbfgNpkox aftercare (1 source)Other jail (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 therapy; Translations: [OTH CARE HOME CURRENT DRUG THERAPY]Onset: 94-78-3224IwbrvkywBiwly aftercare (1 source)FCI (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; Translations: [CARE HOME CURRENT USE OF ASPIRIN]Onset: 67-58-0057HqnpginsFxolc aftercare (6 sources)Long-term current use of insulin; Translations: [FCI (current) use of insulin]95-46-3880QstwmzalNdmmb and ill-defined heart disease (20 sources)Cardiomegaly; Translations: [Cardiomegaly]Onset: 10-25-2017 69-89-7428JugbawoTfcrp and ill-defined heart disease (1 source)Cardiomegaly; Translations: [Cardiomegaly]Onset: 35-87-4334Pirqxxd Other and unspecified benign neoplasm (1 source)Benign lipomatous tumor; Translations: [Benign lipomatous neoplasm of other sites]Onset: 77-24-9982HymhtrqsAhzui bone disease and musculoskeletal deformities (1 source)Acquired absence of other left toe(s); Translations: [ACQUIRED ABSENCE OF OTHER LEFT TOES]Onset: 84-61-7485CxrukzadOkuof diseases of kidney and ureters (1 source)Urinary tract obstruction; Translations: [Other obstructive and reflux uropathy]Onset: 51-29-0878KabnhdoeAwmzh diseases of veins and lymphatics (1 source)Chronic venous hypertension (idiopathic) with ulcer and inflammation of bilateral lower extremity; Translations: [CHRN KEO HTN ULCR INFLAM ALEX LW EXT]Onset: 16-30-3066GfaiikkKxxgi diseases of veins and lymphatics (1 source)Chronic venous hypertension (idiopathic) with ulcer of left lower extremity; Translations: [CHRON VENOUS HTN W/ULCER LT LW EXT]Onset: 09-01-2022 ChronicOther diseases of veins and lymphatics (1 source)Lymphedema, not elsewhere classified; Translations: [LYMPHEDEMA NOT ELSEWHERE CLASSIFIED]Onset: 29-43-6120BlezczmSnqwa diseases of veins and lymphatics (5 sources)Chronic peripheral venous hypertension with lower extremity complication; Translations: [Chronic venous hypertension (idiopathic) with ulcer of bilateral lower extremity]Onset: 155355-20-0132IlrxaaxDgojy diseases of veins and lymphatics (20 sources)Chronic peripheral venous hypertension; Translations: [Chronic venous hypertension (idiopathic) with ulcer of bilateral lower extremity]Onset: 051453-34-4633SbplvczWxejo diseases of veins and lymphatics (18 sources)Stasis dermatitis and venous ulcer of right lower extremity due to chronic peripheral venous hypertension; Translations: [Chronic venous hypertension (idiopathic) with ulcer and inflammation of rightlower extremity] Onset: 327640-40-5423LycuoivBhosk endocrine disorders (2 sources)Disorder of adrenal gland; Translations: [Other specified disorders of adrenal gland]Onset: 84-70-2928RqidcvjVfcwh endocrine disorders (20 sources)Adrenal mass; Translations: [Disorder of adrenal gland, unspecified] Onset: 066232-47-6335ErevdtjVgdmx endocrine disorders (2 sources)Disorder of adrenal gland, unspecifiedOnset: 02-20-2022 Resolved: 64-48-2074ZekspeuXtvmr endocrine disorders (5 sources)Other specified disorders of adrenal gland; Translations: [OTHER SPEC DISORDERS ADRENAL GLAND]Onset: 09-22-6422KqdpqsjJkzcw gastrointestinal disorders (3 sources)Adrenal wore58-24-6619HuhherotPndaf lower respiratory disease (1 source)Hypoxemia; Translations: [HYPOXEMIA]Onset: 32-16-3226VmajhvxfFzina nervous system disorders (5 sources)Chronic pain syndrome; Translations: [CHRONIC PAIN SYNDROME]Onset: 41-67-1930OghvgipOboxq nervous system disorders (1 source)Other chronic pain; Translations: [OTHER CHRONIC PAIN]Onset: 88-44-4134IytsyoiCbnsj non-traumatic joint disorders (4 sources)Pain in right hip; Translations: [PAIN IN RIGHT HIP]Onset: 04-27-2022 EpisodicOther nutritional; endocrine; and metabolic disorders (2 sources)Localized adiposity; Translations: [Localized adiposity]ChronicOther nutritional; endocrine; and metabolic disorders (20 sources)Body mass index 40+ - severely obese; Translations: [Body mass index (BMI) 50.0-59.9, adult]Onset: 082071-04-5198GxrnpydNcdhg nutritional; endocrine; and metabolic disorders (3 sources)Body mass index (BMI) 50.0-59.9, adult; Translations: [BODY MASS INDEX BMI 50.0-59.9 ADULT]Onset: 08-60-6831ViisuxwKtltf nutritional; endocrine; and metabolic disorders (3 sources)Morbid (severe) obesity due to excess calories; Translations: [MORBID SEVERE OBES D/T EXCESS NHI]Onset: 14-74-6283XiyzdqsDtfgz nutritional; endocrine; and metabolic disorders (1 source)Obesity, unspecified; Translations: [OBESITY UNSPECIFIED]Onset: 12-84-9696IpltcyeVvhwu nutritional; endocrine; and metabolic disorders (20 sources)Obesity caused by energy imbalance; Translations: [Morbid (severe) obesity due to excess calories]Onset: 069310-03-2086CnslqvxEczsb screening for suspected conditions (not mental disorders or infectious disease) (1 source)Encounter for screening mammogram for malignant neoplasm of breast; Translations: [ENC SCR MAMMO MALIG NEOPLASM BREAST]Onset: 25-19-7981Yhcyixan Other skin disorders (2 sources)Bilateral localized swelling of lower legs; Translations: [Localized swelling, mass and lump, lowerlimb, bilateral]77-53-0120OueqviwaLdfgt upper respiratory disease (20 sources)Allergic rhinitis; Translations: [Other allergic rhinitis]Onset: 171073-78-6312LmnfwvxNggmaplybz and visceral atherosclerosis (20 sources)Peripheral vascular disease, unspecified; Translations: [Peripheral vascular disease, unspecified]Onset: 527918-42-9895CbvmwysCfgarapij heart disease (20 sources)Pulmonary hypertension; Translations: [Pulmonary hypertension, unspecified]Onset: 203084-07-1821CauxxreBzglkrrp codes; unclassified (3 sources)Obstructive sleep apnea (adult) (pediatric); Translations: [OBSTRUCTIVE SLEEP APNEA]Onset: 21-07-2598MixxodgTyeuytmw codes; unclassified (20 sources)Obstructive sleep apnea syndrome; Translations: [Obstructive sleep apnea (adult) (pediatric)]Onset: 438484-67-1411BiyydccPrkmiovk codes; unclassified (1 source)Acquired absence of other specified parts of digestive tract; Translations: [ACQ ABSENCE OTH PART DIGESTV TRACT]Onset: 99-26-4359Gdjbfwze Residual codes; unclassified (1 source)Acquired absence of both cervix and uterus; Translations: [ACQUIRED ABSENCE BOTH CERVIX AND UTERUS]Onset: 64-38-5073UmbpcbioLwbxcfxh codes; unclassified (1 source)Family history of malignant neoplasm of ovary; Translations: [FAM HX MALIGNANT NEOPLASM OVARY]Onset: 10-13-3443BqntjtykUmgsikkk codes; unclassified (1 source)Family history of malignant neoplasm, unspecified; Translations: [FAM HX MALIGNANT NEOPLASM UNS]Onset: 96-56-4324EfviwsxlHeaejzudp-related disorders (20 sources)Nicotine dependence; Translations: [Nicotine dependence, unspecified, uncomplicated]Onset: 99-77-9963PnlehepUwijvpp on above:Added secondary to documentation in Social History.Unclassified (1 source)CARE HOME INJECT NONINSULN ANTIDIAB; Translations: [CARE HOME INJECT NONINSULN ANTIDIAB]Onset: 67-01-4854Wwawqouhrdpi (3 sources)CONTACT W/AND (SUSP) EXPOS COVID-19; Translations: [CONTACT W/AND (SUSP) EXPOS COVID-19]Onset: 12-69-4922Dpxzsuijnfye (3 sources)LOW BACK PAIN, UNSPECIFIED; Translations: [LOW BACK PAIN, UNSPECIFIED]Onset: 15-43-1384Wetdklrcwepi (1 source)Obesity, class 3; Translations: [Obesity, class 3]Onset: 11-14-2023 Viral infection (1 source)COVID-19; Translations: [COVID-19]Onset: 09-29-2022 Past or Other Problems Problem ClassificationProblemDateDocumented DateEpisodic/ChronicAcquired foot deformities (1 source)Other deformities of toe(s) (acquired), left foot; Translations: [OTHER DEFORMITIES TOES ACQ LT FOOT]Onset: 05-85-7264Gfebqtnn Administrative/social admission (20 sources)Patient encounter status; Translations: [Dietary counseling and surveillance]Onset: 852988-96-2463YmzlmtoiUfaegwdm of urinary tract (20 sources)Kidney stone; Translations: [Calculus of kidney]Onset: 02-06-2022 EpisodicE Codes: Natural/environment (1 source)Other and unspecified overexertion or strenuous movements or postures, initial encounter; Translations: [OTH AND UNS OVREXRT/STRN MVMT/POS INT]Onset: 57-56-1525OuwhsymeTliqc of unknown origin (18 sources)Fever; Translations: [Fever, unspecified]Onset: EpisodicGenitourinary symptoms and ill-defined conditions (20 sources)Proteinuria; Translations: [Proteinuria, unspecified]Onset: 02-06-2022 Resolved: 63-94-4117WvjtanrlVmppepot; including migraine (20 sources)Headache; Translations: [Headache disorder]Onset: 01-17-2024 93-06-6101SeolcediYggiyiqqmtslo and screening for infectious disease (20 sources)Encounter for screening for other infectious and parasitic diseases; Translations: [Anti-nuclear factor positive]Onset: 691975-57-3641Mhdhqpzj Mood disorders (20 sources)Mood disorders; Translations: [DEPRESSION UNSPECIFIED]Onset: 903602-44-2875Bkxwvlk (20 sources)Tinea unguium; Translations: [Candidiasis of vagina]Onset: 77-60-4518YzowfekoXckugglzept deficiencies (20 sources)Vitamin deficiency; Translations: [Vitamin deficiency, unspecified] Onset: 000617-30-1531GchofelqPiwon aftercare (3 sources)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; Translations: [GRIEVANCE AND APPEALS COORDINATOR CURRENT USE OF INSULIN]Onset: 65-72-5813VxzrztulQdwsu aftercare (20 sources)Long-term current use of inhaled steroid; Translations: [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 (current) use of inhaled steroids]Onset: 504428-82-2018QtaanodzGrqec and unspecified benign neoplasm (20 sources)Myelolipoma of adrenal gland; Translations: [Benign lipomatous neoplasm of other sites]Onset: 765968-89-1739EkqndmxaShrog connective tissue disease (4 sources)Other muscle spasm; Translations: [OTHER MUSCLE SPASM]Onset: 97-06-5882CqjapakzJntfl diseases of veins and lymphatics (20 sources)Vascular insufficiency; Translations: [Venous insufficiency (chronic) (peripheral)]Onset: 963848-12-8759SvfiqlekRtmkl diseases of veins and lymphatics (2 sources)Venous insufficiency (chronic) (peripheral); Translations: [Venous insufficiency (chronic) (peripheral)]Onset: 02-47-0625QrxxvgcpLzogo hematologic conditions (1 source)Secondary polycythemiaOnset: 03-08-2022 Resolved: 19-88-9899ZpwcfwznJysiq nervous system disorders (20 sources)Reduced mobility; Translations: [Other abnormalities of gait and mobility]Onset: 346264-59-7332GhusndtuLiibn non-traumatic joint disorders (1 source)Effusion, left knee; Translations: [EFFUSION LEFT KNEE]Onset: 74-39-4413KeluftlgRisms non-traumatic joint disorders (1 source)Pain in left knee; Translations: [PAIN IN LEFT KNEE]Onset: 07-26-2022 EpisodicOther non-traumatic joint disorders (20 sources)Pain in right knee; Translations: [Pain in joint, lower leg]Onset: 340631-76-3610XfqjzbisQpezo nutritional; endocrine; and metabolic disorders (20 sources)Severe obesity; Translations: [Morbid (severe) obesity due to excess calories]Onset: 07-10-2023 Resolved: 556617-31-5736LdghqrnNhlpb nutritional; endocrine; and metabolic disorders (20 sources)Excess panniculus of abdomen; Translations: [Localized adiposity] Onset: 10-25-2017 Resolved: 377472-17-0208UucoxvaNjoee skin disorders (1 source)Nail dystrophy; Translations: [NAIL DYSTROPHY]Onset: 09-01-2022 EpisodicOther skin disorders (1 source)Corns and callosities; Translations: [CORNS AND CALLOSITIES]Onset: 24-74-5862AkdutvicGtrxm skin disorders (1 source)Xerosis cutis; Translations: [XEROSIS CUTIS]Onset: 82-31-0703Nvbwtnqi Other skin disorders (20 sources)Hyperpigmentation of skin; Translations: [Disorder of pigmentation, unspecified]Onset: 874923-60-5126PwncuutqBfomuo media and related conditions (20 sources)Acute suppurative otitis media without spontaneous rupture of ear drum; Translations: [Acute suppurative otitis media without spontaneous rupture of ear drum, left ear]Onset: 01-17-2024 Resolved: 958329-04-1158YvfdmovyVayxnmtpvu disorders (not diabetes) (20 sources)Acute pancreatitis without necrosis or infection, unspecified; Translations: [Pancreatitis]Onset: 557986-68-0000AkpvphsnOhtntrzui (except that caused by tuberculosis or sexually transmitted disease) (20 sources)Pneumonia; Translations: [Pneumonia, unspecified organism]Onset: 09-17-2023 Resolved: 636675-69-1070TjgcmxdqHpnlbqhm codes; unclassified (3 sources)Localized edema; Translations: [LOCALIZED EDEMA]Onset: 09-01-2022 EpisodicResidual codes; unclassified (20 sources)Edema; Translations: [Edema, unspecified]Onset: 07-10-2023 Resolved: 671506-65-0325ZidnwcbuFdbbxjoy codes; unclassified (20 sources)Bilateral lower limb edema; Translations: [Localized edema]Onset: 022824-26-0149UvccndopCekyyjlo codes; unclassified (20 sources)Insomnia; Translations: [Insomnia, unspecified]Onset: 09-17-2023 75-79-7621LwoyrlxdFersfjfy codes; unclassified (20 sources)Tobacco user; Translations: [Tobacco use]Onset: 09-17-2023 Resolved: 498740-96-0225AullepzsLxwnrrbo codes; unclassified (20 sources)Edema of lower extremity; Translations: [Localized edema]Onset: 09-17-2023 Resolved: 266499-24-8062XhcdmwrqDfpf and subcutaneous tissue infections (20 sources)Cellulitis of right lower limb; Translations: [Cutaneous abscess of left axilla]Onset: 17-79-6958HetbgptuZyuaslurjax; intervertebral disc disorders; other back problems (20 sources)Lumbar radiculopathy; Translations: [Radiculopathy, lumbar region] Onset: 436973-42-3378EnxklvkaYaxogeg and strains (1 source)Strain of muscle, fascia and tendon of lower back, initial encounter; Translations: [STRAIN MUSC FASC TENDON LW BACK INT]Onset: 54-11-8595Tdqgtqfg Unclassified (1 source)CONTACT W/AND (SUSP) EXPOS COVID-19; Translations: [CONTACT W/AND (SUSP) EXPOS COVID-19]Onset: 12-19-0188Kfhlglahazcm (1 source)LOW BACK PAIN, UNSPECIFIED; Translations: [LOW BACK PAIN, UNSPECIFIED] Onset: 81-82-1033Nviwsikuermu (4 sources)Patient encounter ydindp31-42-7109Uulpcmtrteuy (1 source)Obesity, class 3; Translations: [Obesity, class 3]Onset: 08-08-2024 Varicose veins of lower extremity (20 sources)Varicose veins of right lower extremity with ulcer of unspecified site; Translations: [Varicose veins of lower extremities with ulcer]Onset: 06-19-2024 Resolved: 583193-09-0680Fnchshnd Results Test NameValueInterpretationReference RangeFacility.eGFRon 37-83-0496UED/1.73 sq M.predicted MDRD (S/P/Bld) [Vol rate/Area]mL/min/{1.73_m2}Normal>=60BlPremier HealthComment on above:Result Comment: [facility] have implemented the eGFR calculation approach [...] Age = yearsPerformed By: #### EGFR #### [address] [address]VIJ w/ Diffon 76-96-3589Wedaidoroou distribution width (RBC) [Ratio]20.0 %High11.6-14.8BFairfield Medical CenterComment on above: Performed By: #### CBC #### [address] [address]Kmmxipnapi (Bld) [Volume fraction]53.8 %High36.0-46.0[facility] HospitalComment on above:Performed By: #### CBC #### [address] [address]Nfuogishif (Bld) [Mass/Vol]17.7 g/cGWnfv20.0-16.0[facility] HospitalComment on above:Performed By: #### CBC #### [address] [address]CRD (RBC) [Entitic mass]27.1 uxHlgpng19.0-35.0[facility] HospitalComment on above:Performed By: #### CBC #### [address] [address]CLVE59.9 %Wefgzq29.0-37.0[facility] HospitalComment on above:Performed By: #### CBC #### [address] [address]STK (RBC) [Entitic vol]82.2 xVWjoqrn30.0-100.0[facility] HospitalComment on above:Performed By: #### CBC #### [address] [address]Uqysxkdz402 x10*3/wyFPzs237-385WkcbxfydsParma Community General Hospital Comment on above:Performed By: #### CBC #### [address] [address]Wbjrlagt mean volume (Bld) [Entitic vol]10.4 fLNormal6.7-10.6 [facility] HospitalComment on above:Performed By: #### CBC #### [address] [address]AIO8.54 x10*6/mcLHigh3.80-5.20[facility] Comment on above:Performed By: #### CBC #### [address] [address]IHZ28.6 x10*3/mcLHigh4.5-11.0[facility] Comment on above:Performed By: #### CBC #### [address] [address]VIOew 53-29-7516IFD [Mass/Vol]35.5 mg/LHigh0.0-9.9BFairfield Medical CenterComment on above:Result Comment: For normal applications of [...] FUTURE CARDIAC EVENTS.Performed By: #### CRP #### [address] [address]Lnoe Autoon 79-09-4203Udri Absolute0.1 x10*3/mcLNormal0.0-0.2 [facility] HospitalComment on above:Performed By: #### .Automated Diff #### [address] [address]Tnvyqaafy/100 WBC (Bld)0.5 %Normal0.0-1.5BFairfield Medical CenterComment on above:Performed By: #### .Automated Diff #### [address] [address]Yup Absolute0.3 x10*3/mcLNormal0.0-0.4BBlanchard Valley Health System [facility] SystemComment on above:Performed By: #### .Automated Diff #### [address] [address]Lwjlhhmvazl/100 WBC (Bld)2.3 %Normal0.0-5.4BFairfield Medical CenterComment on above:Performed By: #### .Automated Diff #### [address] [address]Wqiwt Absolute2.8 x10*3/mcLNormal1.0-4.8BFairfield Medical CenterComment on above:Performed By: #### .Automated Diff #### [address] [address]Dsxsppgozlj/100 WBC (Bld)22.5 %Low27.2-40.8BFairfield Medical CenterComment on above:Performed By: #### .Automated Diff #### [address] [address]Dvyc Absolute0.6 x10*3/mcLNormal0.1-1.1BFairfield Medical CenterComment on above:Performed By: #### .Automated Diff #### [address] [address]Rnwaueuaq/100 WBC (Bld)5.1 %Normal3.7-11.9BFairfield Medical CenterComment on above:Performed By: #### .Automated Diff #### [address] [address]Nrzase Absolute8.8 x10*3/mcLHigh1.8-7.7BFairfield Medical CenterComment on above:Performed By: #### .Automated Diff #### [address] [address]Rqpigg Auto69.6 %Khixsq93.2-70.8BFairfield Medical Center Comment on above:Performed By: #### .Automated Diff #### [address] [address]KLOhw 17-24-7821Css Rate12 mm/hrNormal0-30[facility] HospitalComment on above:Performed By: #### ESR #### [address] [address]Avniyqgx Office/Clinic Noteon 67-61-4542Hhhlvzuk Office/Clinic NoteThe content of this note was [...] solely to facilitate the conversation. Missing Attachment [id number] Can be viewed in source system The [...] prescription lotion to the wounds. She takes [place] for pain and daily baby aspirin. She smokes and is on disability, and does not require [facility] paperwork. She reports recent blood flow [...] Orthopedic: Bony foot structur (more content not included)...Premier HealthComment on above:Order Comment: Missing Attachment [id number] Can be viewed in source systemMissing Attachment [id number] Can be viewed in source system Provider Letteron 12-51-4965Srgtmumi Letter Mckayla Blas, MICRO PHOTOGRAPHER-STREETCAR STARTER [address] [place] [address] Re: Mitzi Macias Date of Visit: 05/18/2025 Dear Mckayla Blas APRN-SAYDA, [facility] [address] [place] [address], [phone] Date: 05/18/2025 12:46:10 Please see attached progress/office note regarding mutual patient, Mitzi Macias who was seen on04/29/2025 14:16:18. Please see attached note for further details and please call with any questions or concerns. Sincerely, KANDI Sampson Providers: The following document(s) were included in the letter: May 18, 2025 12:43:05 EST - (05/18/2025) Office Visit Note CAANormal [facility] HospitalRenal Panelon 48-40-9990Wfsqfrh [Mass/Vol]3.5 g/dL Low3.7-5.3BFairfield Medical CenterComment on above:Performed By: #### RENAL #### [address] [address]Fduch gap [Moles/Vol]6 mmol/LNormal4-12[facility] HospitalComment on above:Performed By: #### RENAL #### [address] [address]IBT Crea Ratio25.0 bdbxoYxmmbo40.0-25.0[facility] HospitalComment on above:Performed By: #### RENAL #### [address] [address]Voxvbhj [Mass/Vol]9.0 mg/dLNormal8.6-10.3BFairfield Medical CenterComment on above:Performed By: #### RENAL #### [address] [address]Xkxjtkyd [Moles/Vol]105 mmol/BDctaxu81-643SlfwfbfsfParma Community General HospitalComment on above:Performed By: #### RENAL #### [address] [address]CV1 [Moles/Vol]30 mmol/CLosiwd31-32RjcjyldtvParma Community General HospitalComment on above:Performed By: #### RENAL #### [address] [address]Swnoktorlt [Mass/Vol]0.80 mg/dLNormal0.60-1.20[facility] HospitalComment on above:Performed By: #### RENAL #### [address] [address]Cnwlgha [Mass/Vol]137 mg/bTSycz88-88PgmsdirhhParma Community General HospitalComment on above:Performed By: #### RENAL #### [address] [address]Ezjjgibsw [Mass/Vol]3.6 mg/dLNormal2.5-4.6BFairfield Medical CenterComment on above:Performed By: #### RENAL #### [address] [address]Bhwiuqamv [Moles/Vol]4.5 mmol/LNormal3.4-4.8BFairfield Medical CenterComment on above:Performed By: #### RENAL #### [address] [address]Prsfaf [Moles/Vol]141 mmol/ARehhjk880-192NqeaqphyqParma Community General HospitalComment on above:Performed By: #### RENAL #### [address] [address]Wytp nitrogen [Mass/Vol]20 mg/dLNormal7-25[facility] HospitalComment on above:Performed By: #### RENAL #### [address] [address]Arhwonmspyg 14-60-0106WjniipofpQuwkpihyt From: Maria Elena Negrete To: EU - [...] ) Other: PROVIDER RELATED REMINDER:_ ( ) Alley Worker ( ) Call Pharmacy ( ) Call [...] unable to leave a message at this time.[facility] HospitalVascular Office/Clinic Noteon 73-78-2900Aivpcerg Office/Clinic NoteChief Complaint Leg ulcer History of Present Illness Mitzi was referred by her barrel rifler hook for evaluation of PVD. She has had ulcers in the bilateral lower extremities above the ankle for about a year. She has been seen by wound care in [facility]. They are applying compression with medicated [...] signed by Corinne Kellogg MD 04/23/25 11:56 [facility]rem[facility] VL Ankle Brachial Indiceson 70-00-5633VO Ankle Brachial IndicesPreliminary Technologist Report Ankle/brachial index study was performed. Please see below for information. Aluminum Sheet Cutter: Zayra Ag, RVS Radiologist Report BILATERAL LOWER [...] please contact our Vascular Rehabilitation Department at [phone]. Final Signed by: Jose F Casanova MD Signed (Electronic Signature): 04.17.2025 3:28 pm Transcribed by: Jose F Casanova MD Transcribed DT/TM: 04.17.2025 3:12 (If Report is Signed, Electronically Signed in Other Vendor System)Normal [facility] HospitalBasophils Auto (Bld) [#/Vol]Ordered By: Flynn Urias on 58-45-6472Swvbdjwdn (Bld) [#/Vol]0.1 10 3/uL0.0-0.1FAshtabula General HospitalBasophils/100 WBC Auto (Bld)Ordered By: Flynn Urias on 97-76-0533Qycrfuagc/100 WBC (Bld)0.6 %0.2-2.0[facility] Eosinophils/100 WBC Auto (Bld)Ordered By: Flynn Urias on 03-26-2025 Eosinophils/100 WBC (Bld)2.7 %0.9-7.0[facility] Erythrocyte distribution width Auto (RBC) [Ratio]Ordered By: Flynn Urias on 46-06-9713Kdcqyukjydl distribution width (RBC) [Ratio]16.4 %High11.0-15.[address] [facility]'S Medical CenterGlomerular filtration rate (GFR) estimation in non- AmericanOrdered By: Flynn Urias on 01-93-1215AYI/1.73 sq M.predicted among non-blacks MDRD (S/P/Bld) [Vol rate/Area]mL/min/{1.73_m2}>=60 mL/min/1.73m 2FAshtabula General HospitalHematocrit Auto (Bld) [Volume fraction]Ordered By: Flynn Urias on 52-56-8783Pryhihxwac (Bld) [Volume fraction]52.5 %High36.0-48.0[facility]S Medical CenterHemoglobin [Mass/volume] in BloodOrdered By: Flynn Urias on 34-74-2086Ikkekobyuo (Bld) [Mass/Vol]16.1 g/vXCrxb75.0-16.0[facility] Medical CenterLaboratory - Chemistry and Chemistry - challengeOrdered By: Flynn Urias on 03-26-2025 Albumin [Mass/Vol]2.8 g/dLLow3.4-5.0[facility] Medical CenterCalcium [Mass/Vol]8.6 mg/dL8.5-10.1FAshtabula General HospitalChloride [Moles/Vol] 105 mmol/S18-336HgzwapfjjMercy Health St. Rita'S Medical CenterCO2 [Moles/Vol]31.5 mmol/L 21.0-32.0[facility] Medical CenterCreatinine [Mass/Vol]0.69 mg/dL 0.55-1.02[facility] Medical CenterGFR/1.73 sq M.predicted MDRD (S/P/Bld) [Vol rate/Area]mL/min/{1.73_m2}>=60 mL/min/1.73m 2FAshtabula General HospitalGlucose [Mass/Vol]147 mg/eNTldl43-347ScpttaepqMercy Health St. [facility] Center Potassium [Moles/Vol]4.2 mmol/L3.5-5.1FKettering Health Behavioral Medical Centerodium [Moles/Vol]141 mmol/Q351-643OansbezacMercy Health St. Rita'S Medical CenterUrea nitrogen [Mass/Vol]15.0 mg/dL7.0-18.0[facility]S Medical CenterUrea nitrogen/Creatinine [Mass ratio]21.7 mg/mgMercy Health St. Rita'S Medical Center Laboratory - Hematology and Cell countsOrdered By: Flynn Urias on 03-26-2025 ESR (Bld) [Velocity]48 mm/hHigh<=30[facility] Medical CenterImmature granulocytes/100 WBC (Bld)0.3 %0.0-0.5FAshtabula General Hospital Leukocytes [#/volume] corrected for nucleated erythrocytes in Blood by Automated counOrdered By: Flynn Urias on 72-41-6193QMY corrected for nucl RBC Auto (Bld) [#/Vol]10.0 10 3/uL4.0-11.0[facility]'S Medical CenterLymphocytes Auto (Bld) [#/Vol]Ordered By: Flynn Urias on 07-24-7845Qmozzxioeqv (Bld) [#/Vol]2.7 10 3/uL1.2-3.8[facility]S Medical CenterLymphocytes/100 WBC Auto (Bld)Ordered By: Flynn Urias on 56-43-3642Flmkzfahzde/100 WBC (Bld)27.2 % 20.5-60.0[facility] Auto (RBC) [Entitic mass]Ordered By: Flynn Urias on 46-16-0294MPH (RBC) [Entitic mass]27.2 pg26.7-34.0[facility] SouthwoodsHC Auto (RBC) [Mass/Vol]Ordered By: Flynn Urias on 84-63-1562OXFQ (RBC) [Mass/Vol]30.7 g/dL29.9-35.2FAshtabula General HospitalMCV Auto (RBC) [Entitic vol]Ordered By: Flynn Urias on 87-45-8948TZS (RBC) [Entitic vol]88.7 fL81.0-99.0[facility] Medical CenterMonocytes Auto (Bld) [#/Vol]Ordered By: Flynn Urias on 88-14-8554Cbcglxryu (Bld) [#/Vol] 0.5 10 3/uL0.3-0.8[facility] Medical CenterMonocytes/100 WBC Auto (Bld) Ordered By: Flynn Urias on 22-75-1659Obfurxknn/100 WBC (Bld)5.2 %1.7-12.[address] [facility]'S Medical CenterNeutrophils Auto (Bld) [#/Vol]Ordered By: Flynn Urias on 34-27-1526Zdymietdxbg (Bld) [#/Vol]6.4 10 3/uL1.4-6.5FAshtabula General HospitalNeutrophils/100 WBC Auto (Bld)Ordered By: Flynn Urias on 72-78-8990Eohegxlwqof/100 WBC (Bld)64.0 %43.0-75.0[facility] Medical CenterNo Panel InformationOrdered By: Flynn Urias on 65-45-8067O-Reactive Protein, Quantitative3.94 mg/dLHigh<=0.50[facility] Eosinophils # (Auto)0.3 10 3/uL0.0-0.7FAshtabula General HospitalImmature Granulocyte # (Auto)0.03 10 3/uL0.00-0.03[facility] Phosphorus Level3.5 mg/dL2.6-4.7FAshtabula General HospitalPlatelet mean volume Auto (Bld) [Entitic vol]Ordered By: Flynn Urias on 47-17-1806Senkztvp mean volume (Bld) [Entitic vol]12.8 fL9.5-13.5FAshtabula General Hospital Platelets Auto (Bld) [#/Vol]Ordered By: Flynn Urias on 63-71-5508Owsmjxvkc (Bld) [#/Vol]146 10 3/uJRiz923-717VwkitcoyfMercy Health St. Rita'S Medical CenterRBC Auto (Bld) [#/Vol]Ordered By: Flynn Urias on 27-77-3639YIG (Bld) [#/Vol]5.92 10 6/uLHigh4.20-5.40City Hospitalerum or plasma anion gap determinationOrdered By: Flynn Urias on 22-62-9927Gwpca gap [Moles/Vol]8.7 mmol/LFAshtabula General HospitalBasophils Auto (Bld) [#/Vol]Ordered By: Price Arora on 51-20-6496Hokckryxj (Bld) [#/Vol]0.1 10 3/uL0.0-0.1FAshtabula General HospitalBasophils/100 WBC Auto (Bld)Ordered By: Price Arora on 85-72-6550Aynuvtrue/100 WBC (Bld)0.4 %0.2-2.0[facility] Eosinophils/100 WBC Auto (Bld)Ordered By: Price Arora on 03-25-2025 Eosinophils/100 WBC (Bld)2.4 %0.9-7.0[facility] Erythrocyte distribution width Auto (RBC) [Ratio]Ordered By: Price Arora on 64-10-0601Suspbqlbzrt distribution width (RBC) [Ratio]16.4 %High11.0-15.[address] [facility]'S Medical CenterGlomerular filtration rate (GFR) estimation in non- AmericanOrdered By: Price Arora on 93-89-0276CII/1.73 sq M.predicted among non-blacks MDRD (S/P/Bld) [Vol rate/Area]mL/min/{1.73_m2}>=60 mL/min/1.73m 2FAshtabula General HospitalHematocrit Auto (Bld) [Volume fraction]Ordered By: Price Arora on 98-14-3205Exbjfpwrgw (Bld) [Volume fraction]56.6 %High36.0-48.0[facility]S Medical CenterHemoglobin [Mass/volume] in BloodOrdered By: Price Arora on 16-64-7489Cgcbmpgjap (Bld) [Mass/Vol]17.4 g/aPEwvr55.0-16.0[facility] Medical CenterLaboratory - Chemistry and Chemistry - challengeOrdered By: Price Arora on 03-25-2025 Bilirubin Ql (U)NegativeNEGATIVEMercy Health St. Rita'S Medical CenterGlucose (U) [Mass/Vol]NegativeNEGATIVEMercy Health St. Rita'S Medical CenterKetones Ql (U) NegativeNEGATIVEMercy Health St. Rita'S Medical CenterpH (U)8.0 [pH]5.0-9.0City Hospitalpecific gravity (U) [Rel density]1.0201.005-1.[address] [facility]'S Medical CenterUrobilinogen Qn (U)1.0 {Little'U}/dL0.2-1.[address] [facility] Medical CenterCalcium [Mass/Vol]9.2 mg/dL8.5-10.1FAshtabula General HospitalChloride [Moles/Vol]106 mmol/E82-824ZsceoueoxMercy Health St. Rita'S Medical CenterCO2 [Moles/Vol]36.9 mmol/LHigh21.0-32.0[facility] Medical CenterCreatinine [Mass/Vol]0.86 mg/dL0.55-1.02[facility] GFR/1.73 sq M.predicted MDRD (S/P/Bld) [Vol rate/Area]mL/min/{1.73_m2}>=60 mL/min/1.73m 2FAshtabula General HospitalGlucose [Mass/Vol]164 mg/dLHigh 74-106[facility] Medical CenterPotassium [Moles/Vol]4.0 mmol/L3.5-5.1 City Hospitalodium [Moles/Vol]144 mmol/Z126-462HjyayhsieMercy Health St. Rita'S Medical CenterUrea nitrogen [Mass/Vol]14.0 mg/dL7.0-18.0[facility] Medical CenterUrea nitrogen/Creatinine [Mass ratio]16.3 mg/mgMercy Health St. Rita'S Medical CenterLaboratory - Hematology and Cell countsOrdered By: Price Arora on 65-40-3964Bqohcgxo granulocytes/100 WBC (Bld)0.3 %0.0-0.[address] [facility] CenterLaboratory - Specimen informationOrdered By: Price Arora on 14-64-0940Rkaozflbkg (U)CLEARCLEARFAshtabula General HospitalColor (U)LT. YELLOWYELLOWMercy Health St. Rita'S Medical CenterLaboratory - UrinalysisOrdered By: Price rAora on 68-06-2061Lpeiodw casts LM Ql (Urine sed) RAREMercy Health St. Rita'S Medical CenterLeukocyte esterase Test strip Ql (U) NegativeNEGATIVEMercy Health St. Rita'S Medical CenterMucus Ql (Urine sed)TRACE AbnormalNONE SEENMercy Health St. Rita'S Medical CenterNitrite Ql (U)NegativeNEGATIVE [facility] CenterProtein Ql (U)100 mg/dLAbnormalNEG/TRACE [facility] Medical CenterLeukocytes [#/volume] corrected for nucleated erythrocytes in Blood by Automated counOrdered By: Price Arora on 03-25-2025 WBC corrected for nucl RBC Auto (Bld) [#/Vol]11.8 10 3/uLHigh4.0-11.0[facility] Rita'S Medical CenterLymphocytes Auto (Bld) [#/Vol]Ordered By: Price Arora on 98-74-4097Edxryebpfdq (Bld) [#/Vol]3.1 10 3/uL1.2-3.8[facility]'S Medical CenterLymphocytes/100 WBC Auto (Bld)Ordered By: Price Arora on 90-24-4764Gjdykdmrjyr/100 WBC (Bld)26.4 %20.5-60.0[facility] Auto (RBC) [Entitic mass]Ordered By: Price Arora on 92-13-6339HDC (RBC) [Entitic mass]27.5 pg26.7-34.0[facility] SouthwoodsHC Auto (RBC) [Mass/Vol]Ordered By: Price Arora on 11-53-0782QCNW (RBC) [Mass/Vol]30.7 g/dL29.9-35.2FAshtabula General HospitalMCV Auto (RBC) [Entitic vol] Ordered By: Price Arora on 02-23-2944EIZ (RBC) [Entitic vol]89.4 fL81.0-99.[address] [facility]S Medical CenterMonocytes Auto (Bld) [#/Vol]Ordered By: Price Arora on 87-60-6466Gwomyzwpa (Bld) [#/Vol]0.6 10 3/uL0.3-0.8[facility] Medical CenterMonocytes/100 WBC Auto (Bld)Ordered By: Price Arora on 24-56-2339Qxnorysix/100 WBC (Bld)5.2 %1.7-12.0[facility] Neutrophils Auto (Bld) [#/Vol]Ordered By: Price Arora on 46-55-4028Xwphlfvosze (Bld) [#/Vol]7.7 10 3/uLHigh1.4-6.5FAshtabula General Hospital Neutrophils/100 WBC Auto (Bld)Ordered By: Price Arora on 03-25-2025 Neutrophils/100 WBC (Bld)65.3 %43.0-75.0[facility] CenterNo Panel InformationOrdered By: Price Arora on 18-22-9799Uykvx BacteriaTRACE #/HPFAbnormalNONE SEENMercy Health St. Rita'S Medical CenterUrine Culture ReflexedMercy Health Kings Mills HospitalUrine Occult BloodNegativeNEGATIVEMercy Health St. Rita'S Medical CenterUrine Other CastsSEEN #/LPFAbnormalNONE [facility] HospitalUrine Other CrystalsNone Seen #/HPFNone [facility] HospitalUrine RBC0-2 #/HPF0-2FAshtabula General Hospital Urine Squamous Epithelial CellsFEW #/LPFAbnormalNONE/RAREMercy Health St. Rita'S Medical CenterUrine WBC0-2 #/HPFAbnormalNONE [facility] HospitalEosinophils # (Auto)0.3 10 3/uL0.0-0.7FAshtabula General Hospital Immature Granulocyte # (Auto)0.04 10 3/uLHigh0.00-0.03[facility]'S Medical CenterPlatelet mean volume Auto (Bld) [Entitic vol]Ordered By: Price Arora on 25-49-0674Gyzjepav mean volume (Bld) [Entitic vol]12.4 fL9.5-13.5FAshtabula General HospitalPlatelets Auto (Bld) [#/Vol]Ordered By: Price Arora on 81-87-0177Cmfoveuyu (Bld) [#/Vol]160 10 3/zV160-416XcpggamdwMercy Health St. Rita'S Medical CenterRBC Auto (Bld) [#/Vol]Ordered By: Priceoh Arora on 66-43-7580BPL (Bld) [#/Vol]6.33 10 6/uLHigh4.20-5.40City Hospitalerum or plasma anion gap determinationOrdered By: Price Arora on 60-58-8083Kqnhx gap [Moles/Vol]5.1 mmol/LFAshtabula General HospitalVascular Office/Clinic Noteon 65-44-3450Lputrvtp Office/Clinic NoteChief Complaint lle wound History of [...] Electronically signed by Omero Santana 03/23/25 12:01 [facility] HospitalPodiatry Office/Clinic Noteon 91-93-5137Nveipntn Office/Clinic NoteThe content of this note was generated by an C-sam (AI) language dictation. The patient or guardian [...] of this note was generated by an C-sam (AI) language dictation. The patient or guardian [...] of this note was generated by an [employer] intelligence (AI) language dictation. The patient or [...] wraps (gauze, tila bandage, Coban II, tuba welder assistant), Dakins solution, a 40-daycourse of antibiotics, and [...] other blood thinners. The patient resides in [place]. Review of Systems Constitutional: Negative for signs [...] their lower extremities Positi (more content not included)...Premier HealthComment on above:Order Comment: Missing Attachment [id number] Can be viewed in source systemXR Tibia/Fibula Righton 50-33-6967IN Tibia/Fibula Right2 views right tib- fib demonstrate: [...] Is Signed, Electronically Signed in Other Vendor System)[facility]uder HospitalResults Follow-Upon 40-96-8724Udxnacf Follow-Up [id number] Mitzi Macias 1970 F Date Provider Department Center 02/04/2025 Mikaela-AMI ORO CARDIOLOGY None Family History Problem Relation Age of Onset Heart attack Paternal Grandmother Family Status - Relation Status Age at Mother Father Paternal GrandmotherNMercy Health Kings Mills HospitalOrders Onlyon 76-99-3054Rwnjui [id number] Mitzi Macias 1970 F Date Provider Department Center 01/30/2025 [id number], HISTORICAL [facility] Family History Problem Relation Age of Onset Heart attack Paternal Grandmother Family Status - Relation Status Age at Mother Father Paternal GrandmotherNMercy Health Kings Mills HospitalCA ECHO DOPPLER COMPLETEon 97-47-4894[place]rpG[place] [address] Cardiology Report Signed Patient: MITZI MACIAS MR#: [id number] : 1970 Acct:[id number] Age/Sex: 54 / F ADM Date: 01/29/25 Loc: CARD Attending Dr: AMI ORO APRN Ordering Physician: AMI ORO APRN Date of Service: 01/29/25 Procedure(s): CA echo doppler complete Accession Number(s): [id number] cc: Mckayla Blas LASER ENGINEER; AMI ORO APRN Patient Name: MITZI MACIAS MR#: [id number] : 1970 Exam Date: 01/29/2025 Ordering Doctor: MAI ORO STREETCAR STARTER ECHOCARDIOGRAM REPORT PROCEDURE: CA ECHO DOPPLER COMPLETE [...] HERRERA Signed By: 01/29/251839 DD/ 39 TD/TT: Commodity Trader:TBHRadiology, Radiologist, - 01/29/2025 [place] [address] Cardiology Report Signed Patient: MITZI MACIAS MR#: [id number] : 1970 Acct:[id number] Age/Sex: 54 / F ADM Date: 01/29/25 Loc: CARD Attending Dr: AMI ORO APRN Ordering Physician: AMI ORO APRN Date of Service: 01/29/25 Procedure(s): CA echo doppler complete Accession Number(s): [id number] cc: Mckayla Blas LASER ENGINEER; AMI ORO APRN Patient Name: MITZI MACIAS MR#: [id number] : 1970 Exam Date: 01/29/2025 Ordering Doctor: [...] HERRERA Signed By: 01/29/251839 DD/ 39 TD/TT: Commodity Trader: [facility] HospitalRadiology Study observation (narrative)[facility] ECHO DOPPLER COMPLETEOrdered By: Radiologist Radiology on 01-98-2001UEHISoutheast Missouri Hospital Work Phone: Glucose (Bld) [Mass/Vol]on 43-70-4492Kdemlcd Blood, YEF956 mg/dLSoutheast Missouri HospitalLaboratory - Hematology and Cell countson 01-29-2025 HbA1c (Bld) [Mass fraction]8.4 %[facility] HospitalNo Panel Informationon 01-29-2025 Interpretation and review of laboratory resultsAbnormalCox Walnut Lawn HealthcareOffice Visiton 92-19-1860Jswqho-up [id number] Mitzi Macisa 1970 F Date Provider Department Center 01/06/2025 Mikaela-AMI ORO Wilfredo Rojas Family History Problem Relation Age of Onset Heart attack Paternal Grandmother Family Status - Relation Status Age at Mother Father Paternal Grandmother Level of Service:[address] [place] OFFICE/OUTPATIENT ESTABLISHED MOD MDM 30 MIN Reason for Visit and Comments: Congestive Heart Failure [127] Hypertension [358308] Hyperlipidemia [182]NormalAccess Hospital Dayton36on Regarding lab results from 10/08/2024: MD Mickie Merritt MA Lipids, ALT AST, and BMP are normal. HbA1c was not performed. Continue current management. LM on patient's VM.NormalAccess Hospital DaytonGlucose (Bld) [Mass/Vol]Ordered By: Mica Sauceda on 43-95-2539Uketmye Blood, POC97 mg/dLNOID HealthcareLaboratory - Hematology and Cell countson 53-03-7516WsN8w (Bld) [Mass fraction]7.4 %NOMS HealthcareNo Panel InformationOrdered By: Mica Sauceda on 29-78-4767ZNUA HealthcareTBH UA (CLEAN/CATCH) MICROSCOPIC IF INDICATEon 82-16-0268CSWLFRKNC URINENegativeNEGATIVENOMS HealthcareBLOOD URINENegative NEGATIVENOMS HealthcareClarity (U)CLEARCLEARNOMS HealthcareColor (U)YELLOWYELLOW NOMS HealthcareGLUCOSE URINE UANegativeNEGATIVE mg/dLNOMS Healthcare Interpretation and review of laboratory resultsAbnormalNOMS HealthcareKetones Ql (U)NegativeNEGATIVE mg/dLNOMS HealthcareLeukocyte esterase Test strip Ql (U) NegativeNEGATIVENOMS HealthcareNITRITE URINENegativeNEGATIVENOMS HealthcarepH (U)5.5 [pH]5.0 - 9.0NOMS HealthcareProtein (U) [Mass/Vol]30 mg/dLAbnormal NEG/TRACENOMS HealthcareSPECIFIC GRAVITY URINE>=1.974Igghqcxg9.005 - 1.025NOMS HealthcareURINE MICROSCOPIC INDICATEDYESNOMS HealthcareUROBILINOGEN URINE1.0 EU/dL0.2 - 1.0 EU/dLNOMS HealthcareCLINISYNBAYSTATE MEDICAL CENTER HealthcareALL CBC WITH AUTO DIFFon 37-85-9951GYDMNNFKA ABSOLUTE AUTO0.1NOMS HealthcareBasophils/100 WBC (Bld)0.5 %0.2 - 2.0 %NOMS HealthcareEosinophils/100 WBC (Bld)1.9 %0.9 - 7.0 % NOMS HealthcareErythrocyte distribution width (RBC) [Ratio]14.6 %11.0 - 15.0 % NOMS HealthcareHematocrit (Bld) [Volume fraction]50.9 %High36.0 - 48.0 %NOMS HealthcareHemoglobin (Bld) [Mass/Vol]16.1 g/fUMfqi41.0 - 16.0 g/dLNOID HealthcareIMMATURE GRANULOCYTES ABS AUTO0.04HighNOID HealthcareImmature granulocytes/100 WBC (Bld)0.3 %0.0 - 0.5 %NOMS HealthcareInterpretation and review of laboratory resultsAbnormalNOID HealthcareLYMPHOCYTES ABSOLUTE AUTO3.2 NOMS HealthcareLymphocytes/100 WBC (Bld)25.1 %20.5 - 60.0 %NOMFitzgibbon HospitalMCH (RBC) [Entitic mass]29.2 pg26.7 - 34.0 pgNOPike County Memorial HospitalMCHC (RBC) [Mass/Vol] 31.6 g/dL29.9 - 35.2 g/dLSoutheast Missouri HospitalMCV (RBC) [Entitic vol]92.2 fL81.0 - 99.0 fLNOID HealthcareMONOCYTES ABSOLUTE AUTO0.7NOID HealthcareMonocytes/100 WBC (Bld)5.2 %1.7 - 12.0 %NOMS HealthcareNEUTROPHILS ABSOLUTE AUTO8.6HighNOID HealthcareNeutrophils/100 WBC (Bld)67 %43.0 - 75.0 %NOMS HealthcarePlatelet mean volume (Bld) [Entitic vol]12.8 fL9.5 - 13.5 fLNOPike County Memorial HospitalTBH EO #0.2NOMS HealthcareTBH AEI385KisVRXR HealthcareTB RBC5.52HighNOMS HealthcareTBH WBC12.8 HighNOID HealthcareCLINISYNCNNEWMAN MEMORIAL HOSPITAL – [facility]UCK HealthcareOffice Visiton 62-56-5074Oeugpu-up [id number] Mitzi Macias 1970 F Date Provider Department Center 08/08/2024 [id number], SAMTROY [facility] Family History Problem Relation Age of Onset Heart attack Paternal Grandmother Family Status - Relation Status Age at Paternal Grandmother Level of Service:[address] [place] OFFICE/OUTPATIENT ESTABLISHED MOD MDM 30 MIN Reason for Visit and Comments: Congestive Heart Failure [127] - Denies chest pain, SOB, and palpitations. Hypertension [253669] Hyperlipidemia [182] LVH [Other] Edema [[id number]] - Denies worsening edema. She sees wound care for RLE ulcer. She was seeing the vein specialists here in town but they are moving to [place] in a few weeks.[facility] County HospitalProvider Letteron 78-85-3422Owyjahsd LetterProvider Letter June 11, 2024 [address] [place] [id number] : 1970 To Whom It May Concern, Please excuse above patient from work. Date of Illness: From: 06/11/24 8:30am To: 06/11/24 12:30pm Comments: _Brian Macias was with his for her doctor's appointment. Sincerely, Andra Forrester, Surgical SchedulerNormACMC Healthcare SystemUrology Office/Clinic Noteon 94-43-8262Xdppvkg Office/Clinic NoteUrology Office/Clinic Note Chief Complaint 18 mth HPI Staff 53 yo here 18 month f/u CT for adrenal mass. CT [facility] DX: adrenal mass, kidney stone, left [...] Urology [address], [place] [address]- Additional Instructions: [address] AP [...] TIDAC potassium chloride 10 (more content not included)...[facility] Citizens HospitalComment on above:Result Comment: Electronically Signed By: Elbert ARAUZ MD\.br\Date and Time Signed: 06/11/24 10:55 EST\.br\Electronically Co- Signed By: Maria Elena Negrete\.br\Date and Time Co-Signed: 06/11/24 10:53 EST Glucose (Bld) [Mass/Vol]Ordered By: Mica Sauceda on 41-07-1809Exlttuu Blood, GPP503 mg/dLNOMS HealthcareLaboratory - Hematology and Cell countson 05-27-2024 HbA1c (Bld) [Mass fraction]9.2 %NOMS HealthcareNo Panel InformationOrdered By: Mica Sauceda on 26-47-9872HVRX HealthcareCT ABDOMEN PELVIS W CONon 05-12-2024 [place] [address] CT Scan Report Signed Patient: MITZI MACIAS MR#: [id number] : 1970 Acct:[id number] Age/Sex: 53 / F ADM Date: 05/12/24 Loc: CT Attending Dr: Gaviota MAYERS Ordering Physician: Gaviota Adames Date of Service: 05/12/24 Procedure(s): CT abdomen pelvis w con Accession Number(s): [id number] cc: Mckayla Blas NP [place] [id number] Patient Name: MITZI MACIAS MRN: [id number] date: 1970 Sex: F Assigned Patient Location: CT Current Patient Location: Accession/Order Number: [id number] Exam Date: 05/12/2024 11:15 Report Date: 05/12/2024 [...] Signed By: 05/12/24 1419 DD/ 1416 TD/TT: Commodity Trader:SONNYHRadiology, Radiologist, - 05/12/2024 [place] [address] CT Scan Report Signed Patient: MITZI MACIAS MR#: [id number] : 1970 Acct:[id number] Age/Sex: 53 / F ADM Date: 05/12/24 Loc: CT Attending Dr: Gaviota MAYERS Ordering Physician: Gaviota Adames Date of Service: 05/12/24 Procedure(s): CT abdomen pelvis w con Accession Number(s): [id number] cc: Mckayla Blas NP [facility] [place] [id number] Patient Name: MITZI MACIAS MRN: [id number] date: 1970 Sex: F Assigned Patient Location: CT Current Patient Location: Accession/Order Number: [id number] Exam Date: 05/12/2024 11:15 Report Date: 05/12/2024 [...] Signed By: 05/12/24 1419 DD/ 15 TD/TT: Commodity Trader: [facility]OSPITALHenna HealthcareRadiology Study observation (narrative)[facility] HospitalCT ABDOMEN PELVIS W CONOrdered By: Radiologist Radiology on 49-88-4838NBAASoutheast Missouri Hospital Work Phone: LUMBAR SPINE WO CONon 03-08-8882[place] [id number] Magnetic Resonance Report Signed Patient: MITZI MACIAS MR#: [id number] : 1970 Acct:[id number] Age/Sex: 53 / F ADM Date: 05/12/24 Loc: MRI Attending Dr: Angela Cochran NP Ordering Physician: Angela Cochran NP Date of Service: 05/12/24 Procedure(s): MR lumbar spine wo con Accession Number(s): [id number] cc: Mckayla Blas LASER ENGINEER; Angela Cochran NP [address] [address] Patient Name: MITZI MACIAS MRN: [id number] date: 1970 Sex: F Assigned Patient Location: MRI Current Patient Location: CT Accession/Order Number: [id number] Exam Date: 05/12/2024 09:21 Report Date: 05/12/2024 [...] Signed By: 05/12/24 1443 DD/ 144 TD/TT: Commodity Trader:TBHRadiology, Radiologist, MD - 05/12/2024 [place] [address] Magnetic Resonance Report Signed Patient: MITZI MACIAS MR#: [id number] : 1970 Acct:[id number] Age/Sex: 53 / F ADM Date: 05/12/24 Loc: MRI Attending Dr: Angela Cochran NP Ordering Physician: Angela Cochran NP Date of Service: 05/12/24 Procedure(s): MR lumbar spine wo con Accession Number(s): [id number] cc: Mckayla Blas NP; Angela Cochran NP [address] [place] [id number] Patient Name: MITZI MACIAS MRN: [id number] date: 1970 Sex: F Assigned Patient Location: MRI Current Patient Location: CT Accession/Order Number: [id number] Exam Date: 05/12/2024 09:21 Report Date: 05/12/2024 [...] M.D. Signed By: 05/12/241442 DD/ 40 TD/TT: Commodity Trader: CARLOS HealthcareRadiology Study observation (narrative)[facility] LUMBAR SPINE WO CONOrdered By: Radiologist Radiology on 21-95-4726XREP [facility] Work Phone: [facility] CREATININEon 39-07-8453Mraythwcbd [Mass/Vol]0.92 mg/dL0.55 - 1.02 mg/dLNOMS HealthcareGFR/1.73 sq M.predicted CKD-EPI (S/P/Bld) [Vol rate/Area]>60>=60 mL/min/1.73m 2NOMS HealthcareTBH EGFR-NON AF SWISS>60 >=60 mL/min/1.73m 2NOMS HealthcareCLINISYNCNOMS HealthcareSEGMENTAL BLOOD PRESSUREon 36-23-6768MftGass[place] [address] Vein Report Signed Patient: MITZI MACIAS MR#: [id number] : 1970 Acct:[id number] Age/Sex: 53 / F ADM Date: 04/24/24 Loc: Attending Dr: Comfort Pretty Ordering Physician: Comfort Pretty Date of Service: 04/24/24 Procedure(s): SEGMENTAL PRESSURES Accession Number(s): [id number] cc: Mckayla Blas LASER ENGINEER; Comfort Pretty [place] [address] Patient Name: MITZI MACIAS MRN: [id number] date: 1970 Sex: F Assigned Patient Location: Current Patient Location: Accession/Order Number: [id number] Exam Date: 04/24/2024 10:25 Report Date: 04/24/2024 11:20 At the request of: COMFORT PRETTY Procedure: SEGMENTAL PRESSURES EXAM: SEGMENTAL PRESSURES HISTORY: R09.89 COMPARISON: None. FINDINGS: Segmental pressures presented as follows (right, left) in mmHg. Brachial: 169, 166 Upper thigh: Not obtained Lower thigh: 129, 119 Calf: 124, 106 DPA: 108, 105 [employer] OPERATOR: 100, 91 1st Toe: 124, 142 [...] Signed By: 04/24/24 1123 DD/ 19 TD/TT: Commodity Trader:SONNYHRadiology, Radiologist, - 04/24/2024 [place] [address] Vein Report Signed Patient: MITZI MACIAS MR#: [id number] : 1970 Acct:[id number] Age/Sex: 53 / F ADM Date: 04/24/24 Loc: VC Attending Dr: Comfort Pretty Ordering Physician: Comfort Pretty Date of Service: 04/24/24 Procedure(s): VC SEGMENTAL PRESSURES Accession Number(s): [id number] cc: Mckayla Blas LASER ENGINEER; Comfort Pretty [place] [address] Patient Name: MITZI MACIAS MRN: [facility]:[id number] date: 1970 Sex: F Assigned Patient Location: Current Patient Location: Accession/Order Number: [id number] Exam Date: 04/24/2024 10:25 Report Date: 04/24/2024 11:20 At the request of: COMFORT PRETTY Procedure: VC SEGMENTAL PRESSURES EXAM: VC SEGMENTAL PRESSURES HISTORY: R09.89 COMPARISON: None. FINDINGS: Segmental pressures presented as follows (right, left) in mmHg. Brachial: 169, 166 Upper thigh: Not obtained Lower thigh: 129, 119 Calf: 124, 106 DPA: 108, 105 [employer] OPERATOR: 100, 91 1st Toe: 124, 142 [...] Signed By: 04/24/24 1123 DD/ 1120 TD/TT: Commodity Trader: CARLOS HealthcareRadiology Study observation (narrative)[facility] HealthcareSEGMENTAL BLOOD PRESSUREOrdered By: Radiologist Radiology on 86-94-6013MUZL [facility] Work Phone: mm TOMOSYNTHESIS SCREENING BIon 80-88-6907DfcGassville[place] [address] Mammography Report Signed Patient: MITZI MACIAS MR#: [id number] : 1970 Acct:[id number] Age/Sex: 53 / F ADM Date: 12/13/23 Loc: MAMMO Attending Dr: Mckayla Blas NP Ordering Physician: Mckayla Blas NP Results: Date of Service: 12/13/23 Follow Up: Procedure(s): MM tomosynthesis screening BI Accession Number(s): [id number] cc: Mckayla Blas NP Patient Name: MITZI MACIAS MR#: [id number] : 1970 Exam Date: 12/13/2023 Ordering Doctor: [...] Signed By: 12/14/23 1122 DD/ 1121 TD/TT: Commodity Trader:TBHRadiology, Radiologist, MD - 12/14/2023 [place] [address] Mammography Report Signed Patient: MITZI MACIAS MR#: [id number] : 1970 Acct:[id number] Age/Sex: 53 / F ADM Date: 12/13/23 Loc: MAMMO Attending Dr: Mckayla Blas NP Ordering Physician: Mckayla Blas NP Results: Date of Service: 12/13/23 Follow Up: Procedure(s): MM tomosynthesis screening BI Accession Number(s): [id number] cc: Mckayla Blas NP Patient Name: MITZI MACIAS MR#: [id number] : 1970 Exam Date: 12/13/2023 Ordering Doctor: [...] Signed By: 12/14/23 1122 DD/ 1121 TD/TT: Commodity Trader: [facility] HospitalRadiology Study observation (narrative)[facility] TOMOSYNTHESIS SCREENING BIOrdered By: Radiologist Radiology on 55-92-1922GHKLSoutheast Missouri Hospital Work Phone: bLOOD CULTURE 1on 36-18-3794YDZDV CULTURE 1 Blood Culture 1 NG5D NO GROWTH AT 5 DAYS.^NO GROWTH AT 5 DAYS. [facility] HospitalBLOOD CULTURE 2on 47-46-3578PHOIP CULTURE 2 Blood Culture 2 NG5D NO GROWTH AT 5 DAYS.^NO GROWTH AT 5 DAYS. [facility] HospitalNo Panel Informationon 72-55-3800NZSOOUXRBSTIQ HealthcareECG 12-LEADon 18-78-8172QrqGass[place] [address] Electrocardiograph Report Signed Patient: MITZI MACIAS MR#: [id number] : 1970 Acct:[id number] Age/Sex: 53 / F ADM Date: 08/31/23 Loc: [place] 214-[address]: Jacqueline Becerra D.O. 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 Signed By: 09/02/23 0732 DD/ 180 TD/TT: Commodity Trader:TBHRadiology, Radiologist, - 09/02/2023 [place] [address] Electrocardiograph Report Signed Patient: MITZI MACIAS MR#: [id number] : 1970 Acct:[id number] Age/Sex: 53 / F ADM Date: 08/31/23 Loc: MS 214-[address]: Jacqueline Becerra D.O. 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 Signed By: 09/02/23 0732 DD/ 1808 TD/TT: Commodity Trader: CARLOS [facility] 12-LEADOrdered By: Radiologist Radiology on 88-03-8801KBHU [employer] Work Phone: EC 12-LEADon 01-96-6771Szknidrjd Study observation (narrative)CARLOS [facility] AUTO DIFFon 35-98-1757QFTO #0.0 103/ulNormal 0.0-0.1The [facility] ClinicComment on above:Performed By: #### CBC #### [facility] [address] [place] [address] Dr. Ashlie HillsBasophils/100 WBC (Bld)0.1 %Critically low0.2-2.0The [facility] ClinicComment on above:Performed By: #### CBC #### [facility] [address] [place] [address] Dr. Ashlie Mcintosh #0.0 103/ulNormal0.0-0.7The [facility] ClinicComment on above: Performed By: #### CBC #### [facility] [address] [place] [address] Dr. Ashlie Grahamosinophils/100 WBC (Bld)0.0 %Critically low0.9-7.0The [facility] ClinicComment on above:Performed By: #### CBC #### [facility] [address] [place] [address] Dr. Ashlie Grahamrythrocyte distribution width (RBC) [Ratio]14.9 %Ztpyao99.0-15.0 The [facility] ClinicComment on above:Performed By: #### CBC #### [facility] [address] [place] [address] Dr. Ashlie HillsHematocrit (Bld) [Volume fraction]46.2 %Kkkiac55.0-48.0[facility] HospitalComment on above:Performed By: #### CBC #### [facility] [address] [place] [address] Dr. Ashlie HillsHemoglobin (Bld) [Mass/Vol]14.7 g/zTZsfofb32.0-16.0The [facility] ClinicComment on above:Performed By: #### CBC #### [facility] [address] [place] [address] Dr. Ashlie Hunter #0.06 10e3/ulCritically high0.00-0.03The [facility] Comment on above:Performed By: #### CBC #### [facility] [address] [place] [address] Dr. Ashlie Hunter %0.4 %Normal0.0-0.5The [facility] ClinicComment on above: Performed By: #### CBC #### [facility] [address] [place] [address] Dr. Ashlie Swenson #1.3 103/ulNormal1.2-3.8The [facility] ClinicComment on above:Performed By: #### CBC #### [facility] [address] [place] [address] Dr. Ashlie Dsouzahocytes/100 WBC (Bld)9.4 %Critically low20.5-60.0The [facility] ClinicComment on above:Performed By: #### CBC #### [facility] [address] [place] [address] Dr. Ashlie GhoshUAL DIFF REQNONormalThe [facility] ClinicComment on above: Performed By: #### CBC #### [facility] [address] [place] [address] Dr. Ashlie Mckeon (RBC) [Entitic mass]28.4 xjGlbijv24.7-34.0The [facility] ClinicComment on above:Performed By: #### CBC #### [facility] [address] [place] [address] Dr. Ashlie Mckeon (RBC) [Mass/Vol]31.8 g/bLLskprg84.9-35.2The [facility] ClinicComment on above:Performed By: #### CBC #### [facility] [address] [place] [address] Dr. Ashlie MckeonV (RBC) [Entitic vol]89.4 kHJaefor22.0-99.0The [facility] ClinicComment on above:Performed By: #### CBC #### [facility] [address] [place] [address] Dr. Ashlie Killian #0.5 103/ulNormal0.3-0.8The [facility] ClinicComment on above:Performed By: #### CBC #### [facility] [address] [place] [address] Dr. Ashlie Palominoocytes/100 WBC (Bld)3.4 %Normal1.7-12.0[facility] Comment on above:Performed By: #### CBC #### [facility] [address] [place] [address] Dr. Ashlie Olsen #11.8 103/ulCritically high1.4-6.5[facility] Comment on above:Performed By: #### CBC #### [facility] [address] [place] [address] Dr. Ashlie Quiñonesutrophils/100 WBC (Bld)86.7 %Critically high43.0-75.0The [facility] ClinicComment on above:Performed By: #### CBC #### [facility] [address] [place] [address] Dr. Ashlie Lantigualet mean volume (Bld) [Entitic vol]12.6 fLNormal9.5-13.5The [facility] ClinicComment on above:Performed By: #### CBC #### [facility] [address] [place] [address] Dr. Ashlie HillsPLT133 103/ulCritically pdw357-698Fko [facility] ClinicComment on above:Performed By: #### CBC #### [facility] [address] [place] [address] Dr. Ashlie HillsRBC5.17 106/ulNormal4.20-5.40The [facility] ClinicComment on above:Performed By: #### CBC #### [facility] [address] [place] [address] [address] Ashlie HillsWBC13.6 103/ulCritically high4.0-11.0The [facility] ClinicComment on above:Performed By: #### CBC #### [facility] [address] [place] [address] [address] Ashlie HillsMAGNESIUMon 54-25-6152Tcwkiupya [Mass/Vol]2.2 mg/dLNormal1.8-2.4 The [facility] ClinicComment on above:Performed By: #### INFLUAB #### [facility] [address] [place] [address] [address] Ashlie HillsPOINT OF CARE GLUCOSEon 69-10-4152Nlzdmqg [Mass/Vol]340 mg/dL Critically fxsh41-348Kmc [facility] ClinicComment on above:Performed By: #### POCGLUC #### [facility] [address] [place] [address] Dr. Ashlie HillsGlucose [Mass/Vol]276 mg/dLCritically eaqf86-030Xgw [facility] ClinicComment on above:Performed By: #### CBC #### [facility] [address] [place] [address] [address] Ashlie HillsGlucose [Mass/Vol]333 mg/dLCritically jmzg71-785Zyi [facility] ClinicComment on above:Performed By: #### CBC #### [facility] [address] [place] [address] Dr. Ashlie HillsPROF CHEM 8 (BAS METB)on 13-58-1798Kkgyj gap [Moles/Vol]10.9 mmol/LNormalThe [facility] ClinicComment on above:Performed By: #### INFLUAB #### [facility] [address] [place] [address] Dr. Ashlie HillsCalcium [Mass/Vol]9.3 mg/dLNormal8.5-10.1The [facility] Comment on above:Performed By: #### INFLUAB #### [facility] [address] [place] [address] [address] Ashlie HillsChloride [Moles/Vol]103 mmol/PEwnoyq11-300Qqs [facility] Comment on above:Performed By: #### INFLUAB #### [facility] [address] [place] [address] [address] Ashlie HillsCO2 [Moles/Vol]31.2 mmol/UWdgbgm89.0-32.0The [facility] Comment on above:Performed By: #### INFLUAB #### [facility] [address] [place] [address] [address] Ashlie HillsCreatinine [Mass/Vol]0.96 mg/dLNormal0.55-1.02[facility] HospitalComment on above:Performed By: #### INFLUAB #### [facility] [address] [place] [address] [address] Ashlie GrahamGFR-AF SWISS>60Normal>=60The [facility] ClinicComment on above:Performed By: #### INFLUAB #### [facility] [address] [place] [address] [address] Ashlie GrahamGFR-NON AF SWISS>60Normal>=60The [facility] ClinicComment on above:Performed By: #### INFLUAB #### [facility] [address] [place] [address] [address] Ashlie HillsGlucose [Mass/Vol]288 mg/dLCritically dxva66-805Zia [facility] ClinicComment on above:Performed By: #### INFLUAB #### [facility] [address] [place] [address] [address] Ashlie HillsPotassium [Moles/Vol]5.1 mmol/LNormal3.5-5.1The [facility] Comment on above:Performed By: #### INFLUAB #### [facility] [address] [place] [address] [address] Ashlie HillsSodium [Moles/Vol]140 mmol/SMwfyxt318-362Hmw [facility] Comment on above:Performed By: #### INFLUAB #### [facility] [address] [place] [address] [address] Ashlie HillsUrea nitrogen [Mass/Vol]30.0 mg/dLCritically high7.0-18.0The [facility]fredo HospitalComment on above:Performed By: #### INFLUAB #### [facility] [address] [place] [address] Dr. Ashlie HillsUrea nitrogen/Creatinine [Mass ratio]31.2 mg/mgNoalThKettering Memorial HospitalComment on above:Performed By: #### INFLUAB #### [facility] [address] [place] [address] Dr. Ashlie VernonC AUTO DIFFon 07-55-0301UOHH #0.0 103/ulNormal0.0-0.1The Peoples Hospitalment on above:Performed By: #### CBC #### [facility] [address] [place] [address] Dr. Ashlie HillsBasophils/100 WBC (Bld)0.4 %Normal0.2-2.0[facility] on above:Performed By: #### CBC #### [facility] [address] [place] [address] Dr. Ashlie Mcintosh #0.0 103/ulNormal0.0-0.7The [facility] ClinicComment on above: Performed By: #### CBC #### [facility] [address] [place] [address] Dr. Ashlie Grahamosinophils/100 WBC (Bld)0.0 %Critically low0.9-7.0[facility] Hospitalment on above:Performed By: #### CBC #### [facility] [address] [place] [address] Dr. Ashlie Grahamrythrocyte distribution width (RBC) [Ratio]14.8 %Brechk70.0-15.0 [facility] Hospitalment on above:Performed By: #### CBC #### [facility] [address] [place] [address] Dr. Ashlie HillsHematocrit (Bld) [Volume fraction]49.9 %Critically high36.0-48.0 [facility] HospitalComment on above:Performed By: #### CBC #### [facility] [address] [place] [address] Dr. Ashlie HillsHemoglobin (Bld) [Mass/Vol]15.7 g/kXPqxmii80.0-16.0The [facility] ClinicComment on above:Performed By: #### CBC #### [facility] [address] [place] [address] Dr. Ashlie Hunter #0.04 10e3/ulCritically high0.00-0.03The [facility] Comment on above:Performed By: #### CBC #### [facility] [address] [place] [address] Dr. Ashlie Hunter %0.5 %Normal0.0-0.5The [facility] ClinicComment on above: Performed By: #### CBC #### [facility] [address] [place] [address] Dr. Ashlie Swenson #1.1 103/ulCritically low1.2-3.8The [facility] Comment on above:Performed By: #### CBC #### [facility] [address] [place] [address] Dr. Ashlie Dsouzahocytes/100 WBC (Bld)12.7 %Critically low20.5-60.0The [facility] ClinicComment on above:Performed By: #### CBC #### [facility] [address] [place] [address] Dr. Ashlie GhoshUAL DIFF REQNONormalThe [facility] ClinicComment on above: Performed By: #### CBC #### [facility] [address] [place] [address] Dr. Ashlie Mckeon (RBC) [Entitic mass]28.1 fwZxlqke13.7-34.0The [facility] ClinicComment on above:Performed By: #### CBC #### [facility] [address] [place] [address] Dr. Ashlie Mckeon (RBC) [Mass/Vol]31.5 g/aIPjhsth07.9-35.2The [facility] ClinicComment on above:Performed By: #### CBC #### [facility] [address] [place] [address] Dr. Ashlie MckeonV (RBC) [Entitic vol]89.3 aUBxhypi37.0-99.0The [facility] ClinicComment on above:Performed By: #### CBC #### [facility] [address] [place] [address] [address] Ashlie Killian #0.1 103/ulCritically low0.3-0.8The [facility] ClinicComment on above:Performed By: #### CBC #### [facility] [address] [place] [address] [address] Ashlie Palominoocytes/100 WBC (Bld)1.3 %Critically low1.7-12.0The [facility] ClinicComment on above:Performed By: #### CBC #### [facility] [address] [place] [address] Dr. Ashlie Olsen #7.2 103/ulCritically high1.4-6.5The [facility] Comment on above:Performed By: #### CBC #### [facility] [address] [place] [address] Dr. Ashlie Quiñonesutrophils/100 WBC (Bld)85.1 %Critically high43.0-75.0The [facility] ClinicComment on above:Performed By: #### CBC #### [facility] [address] [place] [address] Dr. Ashlie Lantigualet mean volume (Bld) [Entitic vol]12.2 fLNormal9.5-13.5The [facility] ClinicComment on above:Performed By: #### CBC #### [facility] [address] [place] [address] Dr. Ashlie HillsPLT116 103/ulCritically tlh631-039Rhy [facility] ClinicComment on above:Performed By: #### CBC #### [facility] [address] [place] [address] Dr. Ashlie HillsRBC5.59 106/ulCritically high4.20-5.40The [facility] Comment on above:Performed By: #### CBC #### [facility] [address] [place] [address] [address] [address] Ashlie HillsWBC8.5 103/ulNormal4.0-11.0The [facility] ClinicComment on above: Performed By: #### CBC #### [facility] [id number] Ashlie Harrison CHEST WO W CONon 27-19-3830MND CHEST WO W CONEXAMINATION: CTA CHEST WO [...] authenticated by: HATTIE GOFF Date: 2022-12-05 01:52NormalThe [facility] ClinicMAGNESIUMon 38-03-4054Qpyhmjfln [Mass/Vol]2.1 mg/dLNormal 1.8-2.4The [facility] ClinicComment on above:Performed By: #### POCGLUC #### [facility] [address] [address] [address] Ashlie HillsPOINT OF CARE GLUCOSEon 12-60-3400Dmjmuee [Mass/Vol]293 mg/dL Critically kvco57-675Yms [facility] ClinicComment on above:Performed By: #### POCGLUC #### [facility] [address] [address] [address] Ashlie HillsGlucose [Mass/Vol]269 mg/dLCritically fauw23-607Vuc [facility] ClinicComment on above:Performed By: #### POCGLUC #### [facility] [address] [address] [address] Ashlie HillsGlucose [Mass/Vol]223 mg/dLCritically zpuy62-087Nri [facility] ClinicComment on above:Performed By: #### CVDAGS #### [facility] [address] [place] [address] Dr. Ashlie HillsPROF CHEM 8 (BAS METB)on 48-54-1529Bazae gap [Moles/Vol]11.6 mmol/LNormalThe [facility] ClinicComment on above:Performed By: #### POCGLUC #### [facility] [address] [address] [address] Ashlie HillsCalcium [Mass/Vol]9.2 mg/dLNormal8.5-10.1The [facility] Comment on above:Performed By: #### POCGLUC #### [facility] [address] [address] [address] Ashlie HillsChloride [Moles/Vol]102 mmol/EDafnjg09-801Qmn [facility] Comment on above:Performed By: #### POCGLUC #### [facility] [address] [address] [address] Ashlie HillsCO2 [Moles/Vol]28.7 mmol/NKumwqb72.0-32.0The [facility] Comment on above:Performed By: #### POCGLUC #### [facility] [address] [place] [address] Dr. Ashlie HillsCreatinine [Mass/Vol]1.04 mg/dLCritically high0.55-1.02The [facility] ClinicComment on above:Performed By: #### POCGLUC #### [facility] [address] [address] [address] Ashlie GrahamGFR-AF SWISS>60Normal>=60The [facility] ClinicComment on above:Performed By: #### POCGLUC #### [facility] [address] [address] [address] Ashlie GrahamGFR-NON AF EGFKIUAJ05 mL/min/1.42n2Xhprktgsbg low>=60The [facility] ClinicComment on above:Performed By: #### POCGLUC #### [facility] [address] [address] [address] Ashlie HillsGlucose [Mass/Vol]231 mg/dLCritically [id number] [facility] on above:Performed By: #### POCGLUC #### [facility] [address] [address] [address] Ashlie HillsPotassium [Moles/Vol]4.3 mmol/LNormal3.5-5.1The [facility] Comment on above:Performed By: #### POCGLUC #### [facility] [address] [address] [address] Ashlie HillsSodium [Moles/Vol]138 mmol/JEfyubb680-534Had [facility] Comment on above:Performed By: #### POCGLUC #### [facility] [address] [address] [address] Ashlie HillsUrea nitrogen [Mass/Vol]17.0 mg/dLNormal7.0-18.0[facility] on above:Performed By: #### POCGLUC #### [facility] [address] [address] [address] Ashlie HillsUrea nitrogen/Creatinine [Mass ratio]16.3 mg/mgNormalThe [facility] ClinicComment on above:Performed By: #### POCGLUC #### [facility] [address] [address] [address] Ashlie HillsRESPIRATORY PANEL PLUSon [id number] detectedNormal NOT DETECTEDThe [facility] ClinicComment on above:Performed By: #### CVDAGS #### [facility] [address] [address] [address] Ashlie Gandhi ParapertusisNot detectedNormalNOT DETECTEDThe [facility] ClinicComment on above:Performed By: #### CVDAGS #### [facility] [address] [address] [address] Ashlie Gandhi PertussisNot detectedNormalNOT DETECTEDThe [facility] Comment on above:Performed By: #### CVDAGS #### [facility] [address] [address] [address] Ashlie HillsChlamydia PneumoniaeNot detectedNormalNOT DETECTEDThe [facility] ClinicComment on above:Performed By: #### CVDAGS #### [facility] [address] [address] [address] Ashlie HillsCoronavirus 229ENot detectedNormalNOT DETECTEDThe [facility] ClinicComment on above:Performed By: #### CVDAGS #### [facility] [address] [address] [address] Ashlie HillsCoronavirus DAV5Aya detectedNormalNOT DETECTEDThe [facility] ClinicComment on above:Performed By: #### CVDAGS #### [facility] [address] [address] [address] Dailey ChangCoronavirus [id number] detectedNormalNOT DETECTEDThe [facility] ClinicCom[facility] [place] on above:Performed By: #### CVDAGS #### [facility] [address] [address] [address] Ashlie HillsCoronavirus [id number] detectedNormalNOT DETECTEDThe [facility] ClinicCom[facility] [place] on above:Performed By: #### CVDAGS #### [facility] [address] [address] [address] Ashlie Lockhart A H1Not detectedNormalNOT DETECTEDThe [facility] Comment on above:Performed By: #### CVDAGS #### [facility] [address] [address] [address] Ashlie Centeno H1 2009Not detectedNormalNOT DETECTEDThe [facility] ClinicComment on above:Performed By: #### CVDAGS #### [facility] [address] [address] [address] Ashlie Centeno H3Not detectedNormalNOT DETECTEDThe [facility] Comment on above:Performed By: #### CVDAGS #### [facility] [address] [address] [address] Ashlie Lockhart BNot detectedNormalNOT DETECTEDThe [facility] Comment on above:Performed By: #### CVDAGS #### [facility] [address] [address] [address] Ashlie ChávezapneumovirusNot detectedNormalNOT DETECTEDThe [facility] ClinicCom[facility] [place] on above:Performed By: #### CVDAGS #### [facility] [address] [address] [address] Ashlie Jimenez. PneumoniaeNot detectedNormalNOT DETECTEDThe [facility] ClinicComment on above:Performed By: #### CVDAGS #### [facility] [address] [address] [address] Ashlie Mendieta 1Not detectedNormalNOT DETECTEDThe [facility] ClinicCom[facility] [place] on above:Performed By: #### CVDAGS #### [facility] [address] [address] [address] Ashlie Mendieta 2Not detectedNormalNOT DETECTEDThe [facility] ClinicComment on above:Performed By: #### CVDAGS #### [facility] [address] [address] [address] Ashlie Mendieta 3DetectedAbnormalNOT DETECTEDThe [facility] Comment on above:Performed By: #### CVDAGS #### [facility] [address] [address] [address] Ashlie Mendieta 4Not detectedNormalNOT DETECTEDThe [facility] ClinicCom[facility] [place] on above:Performed By: #### CVDAGS #### [facility] [address] [place] [address] Dr. Ashlie HillsRhino/EnterovirusNot detectedNormalNOT DETECTEDThe [facility] ClinicComment on above:Performed By: #### CVDAGS #### [facility] [address] [place] [address] Dr. Ashlie Gallagher Header 1RESPIRATORY PANEL: VIRUSESGrand [facility] Comment on above:Performed By: #### CVDAGS #### [facility] [address] [address] [address] Ashlie Gallagher Header 2RESPIRATORY PANEL: BACTERIAGrand Lake Joint Township District Memorial HospitalComment on above:Performed By: #### CVDAGS #### [facility] [address] [place] [address] Dr. Ashlie GivensNot detectedNormalNOT DETECTEDThe [facility] ClinicComment on above:Performed By: #### CVDAGS #### [facility] [address] [place] [address] Dr. Ashlie Finney-CoV-2 (COVID-19) RNA MADDY+probe Ql (Unsp spec)Not detected NormalNOT DETECTEDThe [facility] ClinicComment on above:Performed By: #### CVDAGS #### [facility] [address] [place] [address] Dr. Ashlie HillsXR CHEST 1 Von [id number] CHEST 1 VEXAMINATION: XR CHEST 1 V HISTORY: Shortness of breath COMPARISON: Chest x-ray 08/09/2021 TECHNIQUE: Portable chest FINDINGS: The lung parenchyma is free of consolidation or infiltrate. No pneumothorax or pleural effusion. The cardiac, mediastinal and hilar contours are normal. The visualized osseous structures exhibit no gross abnormality. IMPRESSION: No acute cardiopulmonary abnormality. Electronically authenticated by: MARYANNE POWER Date: 2022-12-04 22:23[facility] Memorial HospitalBLOOD GASES BTYon MODEROOMadison HealthComment on above:Performed By: #### CBC #### [facility] [address] [place] [address] Dr. Ashlie Duran TESTPositiveUC Medical Centerment on above: Performed By: #### CBC #### [facility] [address] [address] [address] Ashlie Crenshaw excess Calc (Bld) [Moles/Vol]5.4 mmol/LCritically high -2.0-2.0[facility] on above:Performed By: #### CBC #### [facility] [address] [address] [address] Ashlie SkyP [facility] HospitalComvib[facility] [place] on above: Performed By: #### CBC #### [facility] [address] [address] [address] Ashlie HillsCPThe [facility] on above:Performed By: #### CBC #### [facility] [address] [address] [address] Ashlie HillsGllrcVUC7ZwgynsQih06 Gutierrez StreetComvibra hospital of southeastern [place] on above:Performed By: #### CBC #### [facility] [address] [address] [address] Ashlie HillsHCO3 (Bld) [Moles/Vol]30.8 mmol/LCritically high22.0-26.0[facility] on above:Performed By: #### CBC #### [facility] [address] [address] [address] Ashlie HillsLPMNormalThe [facility] ClinicComvib[facility] [place] on above:Performed By: #### CBC #### [facility] [address] [address] [address] Ashlie HackettUTE VOLUMEGrand Lake Joint Township District Memorial HospitalComvib[facility] [place] on above: Performed By: #### CBC #### [facility] [address] [address] [address] Ashlie HillsOxygen (Bld) [Partial pressure]46.3 mm[Hg]Critically low 80.0-100.0[facility] on above:Performed By: #### CBC #### [facility] [address] [place] [address] Dr. Yilan ChangOxygen saturation in Blood83.9 %Critically low95.0-100.0The [facility] ClinicComment on above:Performed By: #### CBC #### [facility] [address] [address] [address] Ashlie HillsPCO254.2 mmHgCritically high35.0-45.0[facility] on above:Performed By: #### CBC #### [facility] [address] [address] [address] Ashlie HillsOhio State Health SystemComvibra [facility] [place] on above:Performed By: #### CBC #### [facility] [address] [address] [address] Ashlie Knapp (Bld)7.363 [pH]Normal7.350-7.450The [facility] on above:Performed By: #### CBC #### [facility] [address] [address] [address] Ashlie VerasBarnesville HospitalComvibra hospital [facility] [place] on above:Performed By: #### CBC #### [facility] [address] [address] [address] Ash[facility] HillsProtestant Hospital on above:Performed By: #### CBC #### [facility] [address] [place] [address] Dr. Ashlie Avendano [facility] HospitalComv[facility] [place] on above: Performed By: #### CBC #### [facility] [address] [place] [address] Dr. Ashlie GoldBarnesville HospitalComvibra hospital [facility] [place] on above:Performed By: #### CBC #### [facility] [address] [address] [address] Ashlie HillsGreen Cross HospitalComvibra [facility] [place] on above:Performed By: #### CBC #### [facility] [address] [place] [address] [address] Rita's Medical CenterComvibra [facility] [place] on above:Performed By: #### CBC #### [facility] [address] [address] [address] Ashlie Perry [id number] peptide B (Bld) [Mass/Vol]76.0 pg/mL Normal<=900.0The [facility] ClinicComment on above:Performed By: #### POCGLUC #### [facility] [address] [address] [address] Ashlie Chinchilla AUTO DIFFon [id number] #0.1 103/ulNormal0.0-0.1The [facility] ClinicComment on above:Performed By: #### CBC #### [facility] [address] [address] [address] Ashlie HillsBasophils/100 WBC (Bld)0.6 %Normal0.2-2.0[facility] Comment on above:Performed By: #### CBC #### [facility] [address] [address] [address] Ashlie Mcintosh #0.2 103/ulNormal0.0-0.7The [facility] ClinicComment on above: Performed By: #### CBC #### [facility] [address] [address] [address] Ashlie Grahamosinophils/100 WBC (Bld)1.9 %Normal0.9-7.0[facility] Comment on above:Performed By: #### CBC #### [facility] [address] [place] [address] Dr. Ashlie Grahamrythrocyte distribution width (RBC) [Ratio]15.0 %Hmjvnd77.0-15.0 [facility] HospitalComment on above:Performed By: #### CBC #### [facility] [address] [address] [address] Ashlie HillsHematocrit (Bld) [Volume fraction]49.1 %Critically high36.0-48.0 [facility] HospitalComment on above:Performed By: #### CBC #### [facility] [address] [address] [address] Ashlie HillsHemoglobin (Bld) [Mass/Vol]15.6 g/qPBdgemz94.0-16.0The [facility] ClinicComment on above:Performed By: #### CBC #### [facility] [address] [place] [address] Dr. Ashlie Hunter #0.02 10e3/ulNormal0.00-0.03The [facility] ClinicComment on above:Performed By: #### CBC #### [facility] [address] [place] [address] Dr. Ashlie Hunter %0.2 %Normal0.0-0.5The [facility] ClinicComment on above: Performed By: #### CBC #### [facility] [address] [place] [address] Dr. Ashlie Swenson #2.8 103/ulNormal1.2-3.8The [facility] ClinicComment on above:Performed By: #### CBC #### [facility] [address] [place] [address] Dr. Ashlie Dsouzahocytes/100 WBC (Bld)29.9 %Ttschk70.5-60.0The [facility] ClinicComment on above:Performed By: #### CBC #### [facility] [address] [place] [address] Dr. Ashlie Marie DIFF REQNONormalThe [facility] ClinicComment on above: Performed By: #### CBC #### [facility] [address] [place] [address] Dr. Ashlie Mckeon (RBC) [Entitic mass]28.5 xlCzhzsv05.7-34.0The [facility] ClinicComment on above:Performed By: #### CBC #### [facility] [address] [place] [address] Dr. Ashlie Mckeon (RBC) [Mass/Vol]31.8 g/iZFfgwwy08.9-35.2The [facility] ClinicComment on above:Performed By: #### CBC #### [facility] [address] [place] [address] Dr. Ashlie Mckeon (RBC) [Entitic vol]89.8 tWVfyiws93.0-99.0The [facility] ClinicComment on above:Performed By: #### CBC #### [facility] [address] [place] [address] Dr. Ashlie Killian #1.0 103/ulCritically high0.3-0.8The [facility] Comment on above:Performed By: #### CBC #### [facility] [address] [place] [address] Dr. Ashlie Palominoocytes/100 WBC (Bld)10.6 %Normal1.7-12.0[facility] Comment on above:Performed By: #### CBC #### [facility] [address] [place] [address] Dr. Ashlie Olsen #5.3 103/ulNormal1.4-6.5The [facility] ClinicComment on above:Performed By: #### CBC #### [facility] [address] [place] [address] Dr. Ashlie Quiñonesutrophils/100 WBC (Bld)56.8 %Urvjrs18.0-75.0The [facility] ClinicComment on above:Performed By: #### CBC #### [facility] [address] [place] [address] Dr. Ashlie Crump mean volume (Bld) [Entitic vol]12.5 fLNormal9.5-13.5The [facility] ClinicComment on above:Performed By: #### CBC #### [facility] [address] [place] [address] Dr. Ashlie WhiteT109 103/ulCritically pwr573-439Utr [facility] ClinicComment on above:Performed By: #### CBC #### [facility] [address] [place] [address] Dr. Ashlie PruettC5.47 106/ulCritically high4.20-5.40The [facility] Comment on above:Performed By: #### CBC #### [facility] [address] [place] [address] Dr. Ashlie BhaktaBC9.4 103/ulNormal4.0-11.0The [facility] ClinicComment on above: Performed By: #### CBC #### [facility] [address] [place] [address] Dr. Ashlie Jones 14(COMP METB)on 78-21-4860Lbltofi [Mass/Vol]2.9 g/dL Critically low3.4-5.0The [facility] ClinicComment on above:Performed By: #### CBC #### [facility] [address] [place] [address] Dr. Ashlie HillsAlbumin/Globulin [Mass ratio]0.6 {ratio}NormalThe [facility] ClinicComment on above:Performed By: #### CBC #### [facility] [address] [place] [address] Dr. Ashlie Gonzalez [Catalytic activity/Vol]64 U/RKowado75-526Dln [facility] ClinicComment on above:Performed By: #### CBC #### [facility] [address] [place] [address] Dr. Ashlie Chambers [Catalytic activity/Vol]16 U/UPavvnv69-32Pjq [facility] ClinicComment on above:Performed By: #### CBC #### [facility] [address] [place] [address] Dr. Ashlie Arce gap [Moles/Vol]9.6 mmol/LNormalThe [facility] ClinicComment on above:Performed By: #### CBC #### [facility] [address] [place] [address] Dr. Ashlie Tiwari [Catalytic activity/Vol]16 U/BGzdcph90-94Hkm [facility] ClinicComment on above:Performed By: #### CBC #### [facility] [address] [place] [address] Dr. Ashlie HillsBilirubin [Mass/Vol]0.5 mg/dLNormal0.2-1.0The [facility] Comment on above:Performed By: #### CBC #### [facility] [address] [place] [address] Dr. Ashlie HillsCalcium [Mass/Vol]8.7 mg/dLNormal8.5-10.1The [facility] Comment on above:Performed By: #### CBC #### [facility] [address] [address] [address] Ashlie HillsChloride [Moles/Vol]103 mmol/PSqbfah79-335Jee [facility] Comment on above:Performed By: #### CBC #### [facility] [address] [address] [address] Ashlie HillsCO2 [Moles/Vol]30.7 mmol/MVkwcmf20.0-32.0The [facility] Comment on above:Performed By: #### CBC #### [facility] [address] [address] [address] Ashlie HillsCreatinine [Mass/Vol]0.96 mg/dLNormal0.55-1.02The [facility] ClinicComment on above:Performed By: #### CBC #### [facility] [address] [place] [address] Dr. Ashlie GrahamGFR-AF SWISS>60Normal>=60The [facility] ClinicComment on above:Performed By: #### CBC #### [facility] [address] [address] [address] Ashlie Delaney-NON AF SWISS>60Normal>=60The [facility] ClinicComment on above:Performed By: #### CBC #### [facility] [address] [address] [address] Ashlie HillsGlobulin (S) [Mass/Vol]4.7 g/dLNormalThe [facility] ClinicComment on above:Performed By: #### CBC #### [facility] [address] [address] [address] Ashlie HillsGlucose [Mass/Vol]170 mg/dLCritically kobw97-294Enr [facility] ClinicComment on above:Performed By: #### CBC #### [facility] [address] [address] [address] sAhlie HillsPotassium [Moles/Vol]4.3 mmol/LNormal3.5-5.1The [facility] Comment on above:Performed By: #### CBC #### [facility] [address] [address] [address] Ashlie HillsProtein [Mass/Vol]7.6 g/dLNormal6.4-8.2The [facility] Comment on above:Performed By: #### CBC #### [facility] [address] [address] [address] Ashlie HillsSodium [Moles/Vol]139 mmol/SXlxllk791-755Adq [facility] Comment on above:Performed By: #### CBC #### [facility] [address] [place] [address] Dr. Ashlie HillsUrea nitrogen [Mass/Vol]16.0 mg/dLNormal7.0-18.0The [facility] ClinicComment on above:Performed By: #### CBC #### [facility] [address] [place] [address] Dr. Ashlie HillsUrea nitrogen/Creatinine [Mass ratio]16.7 mg/mgNormalThe [facility] ClinicComment on above:Performed By: #### CBC #### [facility] [address] [place] [address] Dr. Ashlie HillsSYMPTOMATIC COVID-19 ANTIGENon [id number] StatementSEE BELOW NormalThe [facility] ClinicComment on [...] #### CVDAGS #### [facility] [address] [place] [address] Dr. Ashlie Finney-CoV-2 (COVID-19) RNA MADDY+probe Ql (Unsp spec)NegativeNormal NEGATIVEOhiohealth Mansfield HospitalComment on above:Performed By: #### CVDAGS #### [facility] [address] [place] [address] Dr. Ashlie Alvarado, [facility] SENSITIVITYon 63-27-3466QLXRWO3.9 pg/mLNormal 4.0-51.3The [facility] ClinicComment on above:Result Comment: CUT-OFF POINTS HAVE BEEN ESTABLISHED BASED ON THE FOURTH UNIVERSAL DEFINITIONS OF MYOCARDIAL INFARCTION. THE UPPER REFERENCE LIMIT (URL) OF TROPONIN, DEFINED THE 99TH PERCENTILE OF cTnI DISTRIBUTION IN A REFERENCE POPULATION, HAS BEEN CONFIRMED THE DECISION THRESHOLD FOR [place] DIAGNOSIS.Performed By: #### POCGLUC #### [facility] [address] [place] [address] Dr. Ashlie MarshallALBUMIN, RAND URon 68-66-3492lGXL28.8 mg/dLCritically high <=30.0The [facility] ClinicComment on above:Performed By: #### CVDAGS #### [facility] [address] [place] [address] Dr. Ashlie Vaughn RANDOM W/MICROSCOPICon 25-50-3033UFIAWTFWPGCE SEENNormalNONE SEENOhiohealth Mansfield HospitalComment on above:Performed By: #### CVDAGS #### [facility] [address] [place] [address] Dr. Ashlie Galarzairubin Ql (U)NegativeNormalNEGATIVEThe [facility] Comment on above:Performed By: #### CVDAGS #### [facility] [address] [place] [address] Dr. Ashlie HillsCASTSEENAbnormalNONE SEENOhiohealth Mansfield HospitalComment on above: Performed By: #### CVDAGS #### [facility] [address] [place] [address] Dr. Ashlie HillsClarity (U)CLEARNormalCLEARThe [facility] ClinicComment on above: Performed By: #### CVDAGS #### [facility] [address] [address] [address] Ashlie Prescottlor (U)YELLOWNormalYELLOWOhiohealth Mansfield HospitalComment on above: Performed By: #### CVDAGS #### [facility] [address] [address] [address] Ashlie HillsCrystals LM Nom (Urine sed)NONE SEENNormalNONE SEENOhiohealth Mansfield HospitalComvibra [facility] [place] on above:Performed By: #### CVDAGS #### [facility] [address] [address] [address] Dailey ChangEpithelial cells LM Ql (Urine sed)MODERATEAbnormalNONE SEEN /RARE The [facility] ClinicComv[facility] [place] on above:Performed By: #### CVDAGS #### [facility] [address] [place] [address] Dr. Ashlie HillsGlucose Ql (U)NegativeNormalNEGATIVEOhiohealth Mansfield HospitalComvib[facility] [place] on above:Performed By: #### CVDAGS #### [facility] [address] [address] [address] Ashlie HillsHemoglobin Ql (U)TRACE-INTACTAbnormalNEGATIVEOhiohealth Mansfield HospitalComvib[facility] [place] on above:Performed By: #### CVDAGS #### [facility] [address] [place] [address] Dr. Ashlie HillsKetones Ql (U)NegativeNormalNEGATIVEOhiohealth Mansfield HospitalComv[facility] [place] on above:Performed By: #### CVDAGS #### [facility] [address] [address] [address] Ashlie HillsLEUKOCYTESNegativeNormalNEGATIVEOhiohealth Mansfield HospitalComv[facility] [place] on above:Performed By: #### CVDAGS #### [facility] [address] [address] [address] Ashlie HillsMUCOUSNONE SEENNormalNONE SEENOhiohealth Mansfield HospitalComvib[facility] [place] on above:Performed By: #### CVDAGS #### [facility] [address] [address] [address] Ashlie HillsNitrite Ql (U)NegativeNormalNEGATIVEThe [facility] ClinicComment on above:Performed By: #### CVDAGS #### [facility] [address] [place] [address] Dr. Ashlie HillspH (U)5.0 [pH]Normal5-9The [facility] ClinicComment on above: Performed By: #### CVDAGS #### [facility] [address] [place] [address] Dr. Ashlie WilderWirqjJQR7-3Gzzbkf9-9Exl [facility] ClinicComment on above:Performed By: #### CVDAGS #### [facility] [address] [place] [address] Dr. Ashlie HillsSPEC GRAVITY1.521Xdrrqdcq8.005-<=1.025The [facility] Comment on above:Performed By: #### CVDAGS #### [facility] [address] [place] [address] Dr. Ashlie Vaughn HEYMAXI595 mg/dlAbnormalNEGATIVE/ TRACEThe [facility] [facility] Comment on above:Performed By: #### CVDAGS #### [facility] [address] [place] [address] Dr. Ashlie Metzbilinogen Qn (U)0.2 {Little'U}/dLNormal0.2 - 1.0The [facility] ClinicComment on above:Performed By: #### CVDAGS #### [facility] [address] [place] [address] Dr. Ashlie HillsWBCNONE SEENNormalNONE SEENThe [facility] ClinicComment on above: Performed By: #### CVDAGS #### [facility] [address] [place] [address] Dr. Ashlie Chinchilla AUTO DIFFon [id number] #0.0 103/ulNormal0.0-0.1The [facility] ClinicComment on above:Performed By: #### CBC #### [facility] [address] [place] [address] Dr. Ashlie HillsBasophils/100 WBC (Bld)0.3 %Normal0.2-2.0[facility] Comment on above:Performed By: #### CBC #### [facility] [address] [place] [address] Dr. Ashlie Mcintosh #0.4 103/ulNormal0.0-0.7The [facility] ClinicComment on above: Performed By: #### CBC #### [facility] [address] [place] [address] Dr. Ashlie Grahamosinophils/100 WBC (Bld)3.0 %Normal0.9-7.0[facility] Comment on above:Performed By: #### CBC #### [facility] [address] [place] [address] Dr. Ashlie Grahamrythrocyte distribution width (RBC) [Ratio]15.3 %Critically high 11.0-15.0[facility] HospitalComment on above:Performed By: #### CBC #### [facility] [address] [place] [address] Dr. Ashlie HillsHematocrit (Bld) [Volume fraction]52.4 %Critically high36.0-48.0 The [facility] ClinicComment on above:Performed By: #### CBC #### [facility] [address] [place] [address] Dr. Ashlie HillsHemoglobin (Bld) [Mass/Vol]16.8 g/dLCritically high12.0-16.0[facility] Mans[facility] HospitalComment on above:Performed By: #### CBC #### [facility] [address] [place] [address] Dr. Ashlie Hunter #0.04 10e3/ulCritically high0.00-0.03The [facility] Comment on above:Performed By: #### CBC #### [facility] [address] [place] [address] Dr. Ashlie Hunter %0.3 %Normal0.0-0.5The [facility] ClinicComment on above: Performed By: #### CBC #### [facility] [address] [place] [address] Dr. Ashlie Swenson #4.5 103/ulCritically high1.2-3.8[facility] Comment on above:Performed By: #### CBC #### [facility] [address] [place] [address] Dr. Ashlie Dsouzahocytes/100 WBC (Bld)33.2 %Gipzhj03.5-60.0The [facility] ClinicComment on above:Performed By: #### CBC #### [facility] [address] [place] [address] Dr. Ashlie Marie DIFF REQNONormalThe [facility] ClinicComment on above: Performed By: #### CBC #### [facility] [address] [place] [address] Dr. Ashlie Granger (RBC) [Entitic mass]28.0 wcXllydn07.7-34.0The [facility] ClinicComment on above:Performed By: #### CBC #### [facility] [address] [place] [address] Dr. Ashlie Mckeon (RBC) [Mass/Vol]32.1 g/nGFbsjux34.9-35.2The [facility] ClinicComment on above:Performed By: #### CBC #### [facility] [address] [place] [address] Dr. Ashlie Mckeon (RBC) [Entitic vol]87.3 aBLhojmb85.0-99.0The [facility] ClinicComment on above:Performed By: #### CBC #### [facility] [address] [place] [address] Dr. Ashlie Killian #0.8 103/ulNormal0.3-0.8The [facility] ClinicComment on above:Performed By: #### CBC #### [facility] [address] [place] [address] Dr. Ashlie Palominoocytes/100 WBC (Bld)5.7 %Normal1.7-12.0[facility] Comment on above:Performed By: #### CBC #### [facility] [address] [place] [address] Dr. Ashlie Olsen #7.8 103/ulCritically high1.4-6.5The [facility] Comment on above:Performed By: #### CBC #### [facility] [address] [address] [address] Ashlie Quiñonesutrophils/100 WBC (Bld)57.5 %Pzzzvl45.0-75.0[facility] Mansfield HospitalComment on above:Performed By: #### CBC #### [facility] [address] [address] [address] Ashlie HillsPlatelet mean volume (Bld) [Entitic vol]12.0 fLNormal9.5-13.5The [facility] ClinicComment on above:Performed By: #### CBC #### [facility] [address] [place] [address] Dr. Ashlie HillsPLT152 103/pmZjvloj363-767KfvOhiohealth Mansfield HospitalComment on above: Performed By: #### CBC #### [facility] [address] [place] [address] Dr. Ashlie HillsRBC6.00 106/ulCritically high4.20-5.40[facility] Comment on above:Performed By: #### CBC #### [facility] [address] [place] [address] Dr. Ashlie HillsWBC13.6 103/ulCritically high4.0-11.0[facility] Mansfield HospitalComment on above:Performed By: #### CBC #### [facility] [address] [place] [address] Dr. Ashlie HillsLIPID PROFILEon [id number]-HDL RATIO NORMSEE [facility]pelier HospitalComment on above:Result Comment: 3.3 - 4.4 LOW RISK 4.4 - 7.1 AVERAGE RISK 7.1 - 11.0 MODERATE RISK >11.0 HIGH RISKPerformed By: #### CBC #### [facility] [address] [place] [address] Dr. Ashlie HillsCholesterol [Mass/Vol]139 mg/dLNormal<=200The [facility] Comment on above:Performed By: #### CBC #### [facility] [address] [address] [address] Ashlie HillsCholesterol in HDL [Mass/Vol]35 mg/dLCritically yau42-15EffOhiohealth Mansfield HospitalComment on above:Performed By: #### CBC #### [facility] [address] [address] [address] Ashlie HillsCholesterol in LDL [Mass/Vol]67.4 mg/dLNoTriHealth McCullough-Hyde Memorial HospitalComment on above:Performed By: #### CBC #### [facility] [address] [address] [address] Ashlie Lopezesteroralia.total/Cholesterol in HDL [Mass ratio]4.0 {ratio} NormalOhiohealth Mansfield HospitalComment on above:Performed By: #### CBC #### [facility] [address] [address] [address] Ashile Potts NORMAL> or = 60 mg/dl - LOW CARDIOVASCULAR RISK <40 mg/dl - HIGH CARDIOVASCULAR RISKNoTriHealth McCullough-Hyde Memorial HospitalComment on above:Performed By: #### CBC #### [facility] [address] [address] [address] Ashlie Desai CALC NORMALSEE BELOWGrand Lake Joint Township District Memorial HospitalComment on above:Result Comment: <100 mg/dl OPTIMAL 100 - 129 mg/dl NEAR OR ABOVE OPTIMAL 130 - 159 mg/dl BORDERLINE HIGH 160 - 189 mg/dl HIGH >190 mg/dl VERY HIGH Performed By: #### CBC #### [facility] [address] [address] [address] Ashlie HillsTriglyceride [Mass/Vol]183 mg/dLCritically high<=150Ohio[facility] Mansfield HospitalComment on above:Performed By: #### CBC #### [facility] [address] [address] [address] Ashlie UnderwoodLDL CALC36.6 mg/dLNoTriHealth McCullough-Hyde Memorial HospitalComment on above: Performed By: #### CBC #### [facility] [address] [address] [address] 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 on 11/22/2022 at 12:09[facility] Memorial HospitalPROF 14(COMP METB)on 05-05-1310Tltpmhj [Mass/Vol]3.0 g/dLCritically low 3.4-5.0The [facility]oples Hospitalment on above:Performed By: #### CBC #### [facility] [address] [address] [address] Ashlie HillsAlbumin/Globulin [Mass ratio]0.6 {ratio}NormalThe [facility] ClinicComment on above:Performed By: #### CBC #### [facility] [address] [address] [address] Ashlie Gonzalez [Catalytic activity/Vol]68 U/RTyahdg11-712Iyj [facility] ClinicComment on above:Performed By: #### CBC #### [facility] [address] [address] [address] Ashlie MoralesT [Catalytic activity/Vol]14 U/KPcycsq23-60Xts [facility] ClinicComment on above:Performed By: #### CBC #### [facility] [address] [address] [address] Ashlie Hassanon gap [Moles/Vol]12.1 mmol/LNormalThe [facility] Comment on above:Performed By: #### CBC #### [facility] [address] [address] [address] Ashlie HillsAST [Catalytic activity/Vol]9 U/LCritically byu48-64Qte [facility] ClinicComment on above:Performed By: #### CBC #### [facility] [address] [address] [address] Ashlie HillsBilirubin [Mass/Vol]0.4 mg/dLNormal0.2-1.0[facility] Comment on above:Performed By: #### CBC #### [facility] [address] [address] [address] Ashlie HillsCalcium [Mass/Vol]9.0 mg/dLNormal8.5-10.1[facility] Comment on above:Performed By: #### CBC #### [facility] [address] [place] [address] Dr. Ashlie HillsChloride [Moles/Vol]105 mmol/FBuwabf43-296Hhn [facility] Comment on above:Performed By: #### CBC #### [facility] [address] [address] [address] Ashlie HillsCO2 [Moles/Vol]30.7 mmol/QHvutjj63.0-32.0The [facility] Comment on above:Performed By: #### CBC #### [facility] [address] [address] [address] Ashlie Lopezatinine [Mass/Vol]0.77 mg/dLNormal0.55-1.02The [facility] ClinicComment on above:Performed By: #### CBC #### [facility] [address] [place] [address] Dr. Ashlie GrahamGFR-AF SWISS>60Normal>=60The [facility] ClinicComment on above:Performed By: #### CBC #### [facility] [address] [place] [address] Dr. Ashlie GrahamGFR-NON AF SWISS>60Normal>=60The [facility] ClinicComment on above:Performed By: #### CBC #### [facility] [address] [place] [address] Dr. Ashlie HillsGlobulin (S) [Mass/Vol]4.8 g/dLNormalThe [facility] ClinicComment on above:Performed By: #### CBC #### [facility] [address] [place] [address] Dr. Ashlie HillsGlucose [Mass/Vol]162 mg/dLCritically zohn56-069RuiMarion Hospitalment on above:Performed By: #### CBC #### [facility] [address] [place] [address] Dr. Ashlie HillsPotassium [Moles/Vol]3.8 mmol/LNormal3.5-5.1[facility] Comment on above:Performed By: #### CBC #### [facility] [address] [place] [address] Dr. Ashlie HillsProtein [Mass/Vol]7.8 g/dLNormal6.4-8.2[facility] Comment on above:Performed By: #### CBC #### [facility] [address] [place] [address] Dr. Ashlie HillsSodium [Moles/Vol]144 mmol/PLverqp229-485Vnd [facility] Comment on above:Performed By: #### CBC #### [facility] [address] [place] [address] Dr. Ashlie HillsUrea nitrogen [Mass/Vol]24.0 mg/dLCritically high7.0-18.0The [facility] ClinicComment on above:Performed By: #### CBC #### [facility] [address] [place] [address] Dr. Ashlie Jones nitrogen/Creatinine [Mass ratio]31.2 mg/mgNormalThe [facility] ClinicComment on above:Performed By: #### CBC #### [facility] [address] [place] [address] Dr. Ashlie Chinchilla AUTO DIFFon [id number] #0.1 103/ulNormal0.0-0.1The [facility] ClinicComment on above:Performed By: #### CBC #### [facility] [address] [place] [address] Dr. Ashlie HillsBasophils/100 WBC (Bld)0.6 %Normal0.2-2.0[facility] Comment on above:Performed By: #### CBC #### [facility] [address] [place] [address] Dr. Ashlie Mcintosh #0.3 103/ulNormal0.0-0.7The [facility] ClinicComment on above: Performed By: #### CBC #### [facility] [address] [place] [address] Dr. Ashlie Grahamosinophils/100 WBC (Bld)2.1 %Normal0.9-7.0The [facility] Comment on above:Performed By: #### CBC #### [facility] [address] [place] [address] Dr. Ashlie Grahamrythrocyte distribution width (RBC) [Ratio]15.9 %Critically high 11.0-15.0The [facility] ClinicComment on above:Performed By: #### CBC #### [facility] [address] [place] [address] Dr. Ashlie HillsHematocrit (Bld) [Volume fraction]51.8 %Critically high36.0-48.0 The [facility] ClinicComment on above:Performed By: #### CBC #### [facility] [address] [address] [address] Ashlie HillsHemoglobin (Bld) [Mass/Vol]16.6 g/dLCritically high12.0-16.0The [facility] ClinicComment on above:Performed By: #### CBC #### [facility] [address] [place] [address] Dr. Ashlie Hunter #0.03 10e3/ulNormal0.00-0.03The [facility] ClinicComment on above:Performed By: #### CBC #### [facility] [address] [place] [address] Dr. Ashlie Hunter %0.2 %Normal0.0-0.5The [facility] ClinicComment on above: Performed By: #### CBC #### [facility] [address] [place] [address] Dr. Ashlie Swenson #3.9 103/ulCritically high1.2-3.8The [facility] Comment on above:Performed By: #### CBC #### [facility] [address] [place] [address] Dr. Ashlie Dsouzahocytes/100 WBC (Bld)31.7 %Ahkvww49.5-60.0The [facility] ClinicComment on above:Performed By: #### CBC #### [facility] [address] [place] [address] Dr. Ashlie GhoshUAL DIFF REQNONormalThe [facility] ClinicComment on above: Performed By: #### CBC #### [facility] [address] [place] [address] Dr. Ashlie Mckeon (RBC) [Entitic mass]27.9 khNtlbub24.7-34.0The [facility] ClinicComment on above:Performed By: #### CBC #### [facility] [address] [place] [address] Dr. Ashlie Mckeon (RBC) [Mass/Vol]32.0 g/mWQzgdbe57.9-35.2The [facility] ClinicComment on above:Performed By: #### CBC #### [facility] [address] [address] [address] Ashlie MckeonV (RBC) [Entitic vol]87.1 gVOfonwx80.0-99.0The [facility] ClinicComment on above:Performed By: #### CBC #### [facility] [address] [place] [address] Dr. Ashlie Killian #0.7 103/ulNormal0.3-0.8The [facility] ClinicComment on above:Performed By: #### CBC #### [facility] [address] [place] [address] Dr. Ashlie Palominoocytes/100 WBC (Bld)5.8 %Normal1.7-12.0[facility] Comment on above:Performed By: #### CBC #### [facility] [address] [place] [address] Dr. Ashlie Olsen #7.3 103/ulCritically high1.4-6.5The [facility] Comment on above:Performed By: #### CBC #### [facility] [address] [place] [address] Dr. Ashlie Quiñonesutrophils/100 WBC (Bld)59.6 %Zfymtu68.0-75.0The [facility] ClinicComment on above:Performed By: #### CBC #### [facility] [address] [place] [address] Dr. Ashlie Lantigualet mean volume (Bld) [Entitic vol]11.7 fLNormal9.5-13.5The [facility] ClinicComment on above:Performed By: #### CBC #### [facility] [address] [place] [address] Dr. Ashlie HillsPLT117 103/ulCritically sut088-831Zuy [facility] ClinicComment on above:Performed By: #### CBC #### [facility] [address] [place] [address] Dr. Ashlie HillsRBC5.95 106/ulCritically high4.20-5.40The [facility] Comment on above:Performed By: #### CBC #### [facility] [address] [address] [address] Ashlie HillsWBC12.3 103/ulCritically high4.0-11.0The [facility] Hospitalment on above:Performed By: #### CBC #### [facility] [address] [address] [address] Ashlie HillsCT ABD/PELV W CONon [id number] ABD/PELV W CONEXAM: CT ABD/PELV W CON [...] Electronically authenticated by: RICCO PICKARD Date: 2022-10-05 13:13[facility] URINE PROFILEon 14-10-4459Fzquctvxz Ql (U)NegativeNormal NEGATIVEThe [facility] ClinicComment on above:Performed By: #### POCGLUC #### [facility] [address] [place] [address] Dr. Ashlie HillsClarity (U)CLEARNormalCLEARThe [facility] ClinicComment on above: Performed By: #### POCGLUC #### [facility] [address] [address] [address] Ashlie Prescottlor (U)YELLOWNormalYELLOWOhiohealth Mansfield HospitalComment on above: Performed By: #### POCGLUC #### [facility] [address] [place] [address] Dr. Ashlie Clayton micrscopic examination will be performed if indicated. NormalBarnesville Hospital HospitalComment on above:Performed By: #### POCGLUC #### [facility] [address] [address] [address] Ashlie Rutledgeose Ql (U)NegativeNormalNEGATIVEOhiohealth Mansfield HospitalComment on above:Performed By: #### POCGLUC #### [facility] [address] [place] [address] Dr. Ashlie HillsHemoglobin Ql (U)NegativeNormalNEGATIVEOhiohealth Mansfield Hospital Comment on above:Performed By: #### POCGLUC #### [facility] [address] [place] [address] Dr. Ashlie HillsKetones Ql (U)NegativeNormalNEGATIVEOhiohealth Mansfield HospitalComment on above:Performed By: #### POCGLUC #### [facility] [address] [place] [address] Dr. Ashlie HillsLEUKOCYTESNegativeNormalNEGATIVEOhiohealth Mansfield HospitalComvibra hospital of [facility] [place] on above:Performed By: #### POCGLUC #### [facility] [address] [place] [address] Dr. Ashlie HillsNitrite Ql (U)NegativeNormalNEGATIVEOhiohealth Mansfield HospitalComment on above:Performed By: #### POCGLUC #### [facility] [address] [place] [address] Dr. Ashlie HillspH (U)6.0 [pH]Normal5-9Ohio[facility] Mansfield HospitalComment on above: Performed By: #### POCGLUC #### [facility] [address] [place] [address] Dr. Ashlie HillsProtein (U) [Mass/Vol]100 mg/dLAbnormalNEGATIVE/ TRACEBarnesville Hospital HospitalComment on above:Performed By: #### POCGLUC #### [facility] [address] [address] [address] Ashlie HillsSPEC GRAVITY1.354Sbsmly8.005-<=1.025The [facility] ClinicComment on above:Performed By: #### POCGLUC #### [facility] [address] [address] [address] Ashlie Sullivan MICRO INDINDICATEDNormalThe [facility] ClinicComment on above: Performed By: #### POCGLUC #### [facility] [address] [address] [address] Ashlie Metzbilinogen Qn (U)1.0 {Little'U}/dLNormal0.2 - 1.0The [facility] ClinicComment on above:Performed By: #### POCGLUC #### [facility] [address] [place] [address] Dr. Ashlie HillsLIPASEon 37-60-6519Ebrdce [Catalytic activity/Vol]1771.0 U/L Critically high73.0-393.0The [facility] ClinicComment on above:Performed By: #### CBC #### [facility] [address] [place] [address] Dr. Ashlie Sewell HCG QUALon 28-47-7244IKSDHTVHQ, QUALNegativeNormalNEGATIVE The [facility] ClinicComment on above:Performed By: #### POCGLUC #### [facility] [address] [place] [address] Dr. Ashlie HillsPROF 14(COMP METB)on 15-20-7166Txyfken [Mass/Vol]3.2 g/dL Critically low3.4-5.0The [facility] ClinicComment on above:Performed By: #### CBC #### [facility] [address] [place] [address] Dr. Ashlie HillsAlbumin/Globulin [Mass ratio]0.7 {ratio}NormalThe [facility] on above:Performed By: #### CBC #### [facility] [address] [place] [address] Dr. Ashlie MoralesP [Catalytic activity/Vol]70 U/BUdwunl66-745Zvh [facility] ClinicComment on above:Performed By: #### CBC #### [facility] [address] [address] [address] Ashlie MoralesT [Catalytic activity/Vol]11 U/LCritically hnj63-89Fnl [facility] ClinicComment on above:Performed By: #### CBC #### [facility] [address] [address] [address] Ashlie Hassanon gap [Moles/Vol]10.3 mmol/LNormalThe [facility] Comment on above:Performed By: #### CBC #### [facility] [address] [address] [address] Ashlie HillsAST [Catalytic activity/Vol]11 U/LCritically sqh11-06Nfh [facility] ClinicComment on above:Performed By: #### CBC #### [facility] [address] [address] [address] Ashlie HillsBilirubin [Mass/Vol]0.9 mg/dLNormal0.2-1.0[facility] Comment on above:Performed By: #### CBC #### [facility] [address] [address] [address] Ashlie HillsCalcium [Mass/Vol]9.3 mg/dLNormal8.5-10.1[facility] Comment on above:Performed By: #### CBC #### [facility] [address] [address] [address] Ashlie HillsChloride [Moles/Vol]105 mmol/PWespvn80-732Swm [facility] Comment on above:Performed By: #### CBC #### [facility] [address] [address] [address] Ashlie HillsCO2 [Moles/Vol]30.6 mmol/TYahxrn87.0-32.0The [facility] Comment on above:Performed By: #### CBC #### [facility] [address] [address] [address] Ashlie HillsCreatinine [Mass/Vol]0.62 mg/dLNormal0.55-1.02The [facility] Hospitalment on above:Performed By: #### CBC #### [facility] [address] [address] [address] Ashlie GrahamGFR-AF SWISS>60Normal>=60The [facility] ClinicComment on above:Performed By: #### CBC #### [facility] [address] [address] [address] Ashlie GrahamGFR-NON AF SWISS>60Normal>=60The [facility] ClinicComment on above:Performed By: #### CBC #### [facility] [address] [address] [address] Ashlie HillsGlobulin (S) [Mass/Vol]4.6 g/dLNormalThe [facility] ClinicComvibra hospital of [facility]heastern [place] on above:Performed By: #### CBC #### [facility] [address] [address] [address] Ashlie HillsGlucose [Mass/Vol]85 mg/cGDxfigs64-129VphOhiohealth Mansfield Hospital Comment on above:Performed By: #### CBC #### [facility] [address] [address] [address] Ashlie HillsPotassium [Moles/Vol]3.9 mmol/LNormal3.5-5.1The [facility] Comment on above:Performed By: #### CBC #### [facility] [address] [address] [address] Ashlie HillsProtein [Mass/Vol]7.8 g/dLNormal6.4-8.2[facility] Comment on above:Performed By: #### CBC #### [facility] [address] [address] [address] Ashlie HillsSodium [Moles/Vol]142 mmol/WEmwryh191-696Qtq [facility] Comment on above:Performed By: #### CBC #### [facility] [address] [address] [address] Ashlie HillsUrea nitrogen [Mass/Vol]12.0 mg/dLNormal7.0-18.0The Peoples Hospitalment on above:Performed By: #### CBC #### [facility] [address] [address] [address] Ashlie HillsUrea nitrogen/Creatinine [Mass ratio]19.4 mg/mgNoTriHealth McCullough-Hyde Memorial HospitalComvibra [facility] [place] on above:Performed By: #### CBC #### [facility] [address] [address] [address] Ashlie Recinos MICROSCOPIC ONLYon 13-11-0518TKGDJIJAYRPPYAuujbrlkKWPJ SEEN [facility] HospitalComvib[facility] [place] on above:Performed By: #### POCGLUC #### [facility] [address] [address] [address] Ashlie Cortez identified Cx Nom (U)NOT INDICATEDGrand Lake Joint Township District Memorial HospitalComvib[facility] [place] on above:Performed By: #### POCGLUC #### [facility] [address] [place] [address] Dr. Ashlie Thibodeaux SEENNormalNONE SEENTriHealth on above:Performed By: #### POCGLUC #### [facility] [address] [place] [address] Dr. Ashlie Boyerystals LM Nom (Urine sed)NONE SEENNormalNONE SEENTriHealth on above:Performed By: #### POCGLUC #### [facility] [address] [place] [address] Dr. Dailey ChangEpithelial cells LM Ql (Urine sed)MODERATEAbnormalNONE SEEN /RARE [facility] ClinicCom[facility] on above:Performed By: #### POCGLUC #### [facility] [address] [place] [address] Dr. Ashlie SuarezCOUSNONE SEENNormalNONE SEENTriHealth on above:Performed By: #### POCGLUC #### [facility] [address] [place] [address] Dr. Ashlie PruettZlmaeWYY6-9Rmsynz5-4Sfx [facility] on above:Performed By: #### POCGLUC #### [facility] [address] [place] [address] Dr. Ashlie BhaktaBC0-2AbnormalNONE SEENChillicothe Va [facility] Center [facility] on above: Performed By: #### POCGLUC #### [facility] [address] [address] [address] Ashlie Tapia-19 PCR ([facility])on [id number]-CoV-2 (COVID-19) RNA MADDY+probe Ql (Unsp spec)DetectedAbnormalNOT DETECTEDThe [facility] on above:Result Comment: This test is not yet approved or cleared by the [place] FDA. When there are no FDA-approved or cleared tests available, and other criteria are met, FDA can make tests available under an emergency access mechanism called an Emergency Use Authorization (EUA). The EUA for this test is supported by the [employer] of Health and Human Service's declaration that [...] #### CVDAGS #### [facility] [address] [place] [address] Dr. Ashlie Centeno AND B AGon [id number] Health Willard Hospital on above:Result Comment: Negative for Flu A protein angiten. Infection due to Flu A cannot be ruled out. FluA angiten in the sample may be below the detection limit of the test.Performed By: #### INFLUAB #### [facility] [address] [address] [address] Ashlie HillsINFLUBNEGHSEE [facility] on above: Result Comment: Negative for Flu B protein antigen. Infection due to Flu B cannot be ruled out. FluB antigen in the sample may be below the detection limit of the test.Performed By: #### INFLUAB #### [facility] [address] [place] [address] Dr. Ashlie Centeno AGNegativeNormalNEGATIVE SEE COMMENTThe [facility] ClinicComment on above:Performed By: #### INFLUAB #### [facility] [address], [place] [address] Dr. Ashlie Shaffer AGNegativeNormalNEGATIVE SEE COMMENTThe [facility] ClinicComment on above:Performed By: #### INFLUAB #### [facility] [address], [place] [address] Dr. Ashlie HillsCT ABD/PELV W CONon [id number] ABD/PELV W CONINDICATION: Disorder of adrenal gland [...] dating back to at least 10/21/2018, unchanged. https://www.ncbi.nlm.nih.gov/pmc/articles/NSO2582754/ Electronically authenticated by: COLLIN HUERTAS Date: 2022-07-27 14:56[facility] Memorial HospitalCREATININEon 14-03-7590Jtvtypunzs [Mass/Vol]0.81 mg/dLNormal 0.55-1.02Ohio[facility]field HospitalComment on above:Performed By: #### CBC #### [facility] [address] [address] [address] Ashlie GrahamGFR-AF SWISS>60Normal>=60The [facility] on above:Performed By: #### CBC #### [facility] [address] [address] [address] Ashlie GrahamGFR-NON AF SWISS>60Normal>=60The Wilfredo HospitalComment on above:Performed By: #### CBC #### [facility] [id number] Ashlie Radford LOW EXT W CONT LTon [id number] LOW EXT W CONT LTEXAMINATION: CT LOW [...] Electronically authenticated by: PATRICIA VELOZ Date: 2022-07-18 14:58NoTriHealth McCullough-Hyde Memorial HospitalXR KNEE LT 1_2 Von [id number] KNEE LT 1_2 VEXAM: XR KNEE LT [...] Electronically authenticated by: HATTIE BAUTISTA Date: 2022-07-18 12:00[facility] HospitalCovid-19 PCR (CVDTBH)on [id number]-CoV-2 (COVID-19) RNA MADDY+probe Ql (Unsp spec)Not detectedNormalNOT DETECTEDOhiohealth Mansfield Hospital Comment on above:Result Comment: This test is not yet approved or cleared by the [place] FDA. When there are no FDA-approved or cleared tests available, and other criteria are met, FDA can make tests available under an emergency access mechanism called an Emergency Use Authorization (EUA). The EUA for this test is supported by the [place] of Health and Human Service's (HHS's) declaration [...] #### CBC #### [facility] [address] [place] [address] Dr. Ashlie Centeno AND [facility] [id number] HospitalComment on above:Result Comment: Negative for Flu A protein angiten. Infection due to Flu A cannot be ruled out. FluA angiten in the sample may be below the detection limit of the test.Performed By: #### CBC #### [facility] [address] [place] [address] Dr. Ashlie VelasquezUBNEGDEDRICK [facility] on above: Result Comment: Negative for Flu B protein antigen. Infection due to Flu B cannot be ruled out. FluB antigen in the sample may be below the detection limit of the test.Performed By: #### CBC #### [facility] [address] [place] [address] Dr. Ashlie Centeno AGNegativeNormalNEGATIVE SEE COMMENTThe [facility] on above:Performed By: #### CBC #### [facility] [address] [place] [address] Dr. Ashlie Lockhart B AGNegativeNormalNEGATIVE SEE COMMENTThe [facility] on above:Performed By: #### CBC #### [facility] [address] [place] [address] Dr. Ashlie HillsPOINT OF CARE GLUCOSEon 73-24-3530Wtnhpye [Mass/Vol]108 mg/dL Critically dlyu14-259Vrh [facility] ClinicComvib[facility] [place] on above:Performed By: #### CBC #### [facility] [address] [place] [address] Dr. Ashlie HillsANA by IFAon 71-81-1752Swrsdxvdyqc Antibodies, IFANegativeNormal The [facility] on above:Result Comment: Negative <1:80 Borderline 1:80 Positive >1:80 ICAP nomenclature: AC-0 For more information about Hep-2 cell patterns use ANApatterns.org, the official website for the International Consensus on Antinuclear Antibody (RAGHU) Patterns (ICAP).Performed By: #### ANAIFA #### [facility] [address] [place] [address] Dr. Ashlie HillsIMMUNOFIXATION (TREVON), URINEon [id number] Interpretation:U CommentNormalThe [facility] on above:Result Comment: No monoclonality detected.Performed By: #### CBC #### [facility] [address] [place] [address] Dr. Ashlie HillsIMMUNOFIXATION(TREVON),PROTEIN ELEC(PE),FREon [id number] [Mass/Vol]3.0 g/dLNormal2.9-4.4The Peoples Hospitalment on above:Performed By: #### INFLUAB #### [facility] [address] [place] [address] Dr. Ashlie HillsAlbumin/Globulin [Mass ratio]0.8 {ratio}Normal0.7-1.7The [facility] on above:Performed By: #### INFLUAB #### [facility] [address] [place] [address] Dr. Ashlie HillsKakckZetwg-1-Gfjljnot6.3 g/dLNormal0.0-0.4ThKettering Memorial HospitalComment on above:Performed By: #### INFLUAB #### [facility] [address] [place] [address] Dr. Ashlie HillsWsmhtEwzmf-8-Nztowppv7.0 g/dLNormal0.4-1.0Ohiohealth Mansfield HospitalComment on above:Performed By: #### INFLUAB #### [facility] [address] [place] [address] Dr. Ashlie HillsBeta Globulin1.8 g/dLCritically high0.7-1.3THolmes County [facility] Comment on above:Performed By: #### INFLUAB #### [facility] [address] [place] [address] Dr. Ashlie Skelton [place] Lt Chains,S45.2 mg/LCritically high3.3-19.4ThKettering Memorial HospitalComment on above:Performed By: #### INFLUAB #### [facility] [address] [place] [address] Dr. Ashlie Skelton Lambda Lt Chains,S40.3 mg/LCritically high5.7-26.3THolmes County Joel Pomerene Memorial HospitalComment on above:Performed By: #### INFLUAB #### [facility] [address] [place] [address] Dr. Ashlie HillsGamma Globulin0.8 g/dLNormal0.4-1.8The [facility] ClinicComment on above:Performed By: #### INFLUAB #### [facility] [address] [place] [address] Dr. Ashlie HillsGlobulin (S) [Mass/Vol]3.9 g/dLNormal2.2-3.9[facility] Comment on above:Performed By: #### INFLUAB #### [facility] [address] [place] [address] Dr. Ashlie HillsImmunofixation Result, SerumCommentNoTriHealth [facility]ull[facility] Comment on above:Result Comment: No monoclonality detected.Performed By: #### INFLUAB #### [facility] [address] [address] [address] Ashlie HillsImmunoglobulin A, Qn, Vakkm078 mg/dLCritically rlvg82-032Nmb Peoples Hospitalment on above:Performed By: #### INFLUAB #### [facility] [address] [place] [address] Dr. Ashlie iHllsImmunoglobulin G, Qn, Jzymd350 mg/yQKbowkn352-7669Rvk [facility] ClinicComvib[facility] [place] on above:Performed By: #### INFLUAB #### [facility] [address] [place] [address] Dr. Ashlie HillsImmunoglobulin M, Qn, Serum39 mg/uBZbmtwk74-302Yrt [facility] ClinicComvib[facility] [place] on above:Performed By: #### INFLUAB #### [facility] [address] [place] [address] Dr. Ashlie HillsKappa/Lambda Ratio, S1.11Ofdffe7.26-1.65[facility] Comment on above:Performed By: #### INFLUAB #### [facility] [address] [place] [address] Dr. Ashlie HillsM-SpikeNot ObservedNormalNot ObservedThe [facility] ClinicComvib[facility] [place] on above:Performed By: #### INFLUAB #### [facility] [address] [place] [address] Dr. Ashlie Bradford.NormalThe [facility] on above:Performed By: #### INFLUAB #### [facility] [address] [place] [address] Dr. Ashlie Fletcher note:CommentNormalThe [facility] on above: Result Comment: Protein electrophoresis scan will follow via computer, mail, or field tech delivery.Performed By: #### INFLUAB #### [facility] [address] [place] [address] Dr. Ashlie HillsProtein [Mass/Vol]6.9 g/dLNormal6.0-8.5ThKettering Memorial Hospital Comment on above:Performed By: #### INFLUAB #### [facility] [address] [place] [address] Dr. Ashlie HillsC-PEPTIDE, SERUMon [id number]-Peptide, Serum3.1 ng/mLNormal 1.1-4.4The [facility] ClinicComment on above:Result Comment: C-Peptide reference interval is for fasting patients.Performed By: #### CPEPT #### [facility] [address] [place] [address] Dr. Ashlie Sandoval B SURFACE ANTIGEN SCREENon [id number] ScreenNegative NormalNegativeThe [facility] ClinicComment on above:Performed By: #### CBC #### [facility] [address] [place] [address] Dr. Ashlie ChuaTIS C VIRUS AB W/ REFLEX QUANTon [id number] AB<0.1Normal 0.0-0.9The [facility] Hospitalment on above:Performed By: #### INFLUAB #### [facility] [address] [place] [address] Dr. Ashlie HillsInterpretation:CommentNormalThe [facility] ClinicComment on above:Result Comment: Negative Not infected with HCV, unless recent infection is suspected or other evidence exists to indicate HCV infection.Performed By: #### INFLUAB #### [facility] [address] [place] [address] Dr. Ashlie HillsMICROALBUMIN/ CREATININE RATIOon 51-89-6506Uemcaik, Askbf189.4 ug/mLNormalNot Estab.The [facility] ClinicComvib[facility] [place] on above:Performed By: #### CBC #### [facility] [address] [place] [address] Dr. Ashlie HillsAlbumin/ Creatinine Lzqdy652 mg/g creatCritically high0-29The [facility] ClinicComment on above:Result Comment: Normal: 0 - 29 Moderately increased: 30 - 300 Severely increased: >300Performed By: #### CBC #### [facility] [address] [place] [address] Dr. Ashlie HillsCreatinine, Nmbfp833.9 mg/dLNormalNot Estab.The [facility] Comment on above:Performed By: #### CBC #### [facility] [address] [address] [address] Ashlie Ramsey 25-[place] LABCORPon 77-94-7878Mvtbwpj D, 25-Hydroxy<4.0 Critically low30.0-100.0The [facility] on above:Result Comment: Vitamin D deficiency has been defined by the [place] of Medicine and an Endocrine Society practice guideline as a level of serum 25-OH vitamin D less than 20 ng/mL (1,2). The Endocrine Society went on to further define vitamin D insufficiency as a level between 21 and 29 ng/mL (2). 1. IOM ([place] of Medicine). 2010. Dietary reference intakes for calcium and D. [place]: The National Academies Press. 2. Lynda MF, Keely OLIVEROS, Leandra LOPEZ, et al. Evaluation, treatment, and prevention of vitamin D deficiency: an Endocrine Society clinical practice guideline. JCEM. 2010; 96(7):1911-30.Performed By: #### CBC #### [facility] [address] [place] [address] Dr. Ashlie HillsGLYCOHEMOGLOBIN A1Con [id number] RECOMMENDATIONSEE BELOWNormal The [facility] ClinicComment on above:Result Comment: ADA RECOMMENDED LIMIT 4.0 - 6.0 ADA THERAPEUTIC TARGET < 7.0 ACTION SUGGESTED > 7.0Performed By: #### CVDAGS #### [facility] [address] [address] [address] Ashlie HillsGlucose [Mass/Vol]295 mg/dLNormalThe [facility] ClinicComment on above:Performed By: #### CVDAGS #### [facility] [address] [address] [address] Ashlie HillsHbA1c (Bld) [Mass fraction]11.9 %Critically high4.5-6.2The [facility] ClinicComment on above:Performed By: #### CVDAGS #### [facility] [address] [place] [address] Dr. Ashlie HillsHEMOGRAM AND PLATELon 00-51-1029Sjjxebpfur (Bld) [Volume fraction]56.3 %Critically high36.0-48.0The [facility] ClinicComment on above: Performed By: #### CVDAGS #### [facility] [address] [place] [address] Dr. Ashlie HillsHemoglobin (Bld) [Mass/Vol]18.0 g/dLCritically high12.0-16.0The [facility] ClinicComment on above:Performed By: #### CVDAGS #### [facility] [address] [place] [address] Dr. Ashlie MckeonH (RBC) [Entitic mass]29.5 pyIutrxg86.7-34.0The [facility] ClinicComment on above:Performed By: #### CVDAGS #### [facility] [address] [place] [address] Dr. Ashlie Mckeon (RBC) [Mass/Vol]32.0 g/dVCryynb13.9-35.2The [facility] ClinicComment on above:Performed By: #### CVDAGS #### [facility] [address] [place] [address] Dr. Ashlie MckeonV (RBC) [Entitic vol]92.1 pXYnwbzw27.0-99.0The [facility] ClinicComment on above:Performed By: #### CVDAGS #### [facility] [address] [place] [address] Dr. Ashlie HillsPLT123 103/ulCritically jpl958-946Ibc [facility] ClinicComment on above:Performed By: #### CVDAGS #### [facility] [address] [place] [address] Dr. Ashlie HillsRBC6.11 106/ulCritically high4.20-5.40The [facility] Comment on above:Performed By: #### CVDAGS #### [facility] [address] [place] [address] Dr. Ashlie HillsWBC16.4 103/ulCritically high4.0-11.0The [facility] ClinicComment on above:Performed By: #### CVDAGS #### [facility] [address] [place], [place] [id number] Dr. Ashlie OmerID PROFILEon 11-75-3342ZFNP-HDL RATIO NORMSCorey HospitalComment on above:Result Comment: 3.3 - 4.4 LOW RISK 4.4 - 7.1 AVERAGE RISK 7.1 - 11.0 MODERATE RISK >11.0 HIGH RISKPerformed By: #### CVDAGS #### [facility] [address] [place] [address] Dr. Ashlie HillsCholesterol [Mass/Vol]159 mg/dLNormal<=200[facility] Comment on above:Performed By: #### CVDAGS #### [facility] [address] [place] [address] Dr. Ashlie HillsCholesterol in HDL [Mass/Vol]40 mg/fCGugdfx73-38NfsOhiohealth Mansfield HospitalComment on above:Performed By: #### CVDAGS #### [facility] [address] [place] [address] Dr. Ashlie HillsCholesterol in LDL [Mass/Vol]81.8 mg/dLGrand Lake Joint Township District Memorial HospitalComment on above:Performed By: #### CVDAGS #### [facility] [address] [place] [address] Dr. Ashlie Lopezesteroralia.total/Cholesterol in HDL [Mass ratio]4.0 {ratio} NormalOhiohealth Mansfield HospitalComment on above:Performed By: #### CVDAGS #### [facility] [address] [place] [address] Dr. Ashlie Potts NORMAL> or = 60 mg/dl - LOW CARDIOVASCULAR RISK <40 mg/dl - HIGH CARDIOVASCULAR RISKGrand Lake Joint Township District Memorial HospitalComment on above:Performed By: #### CVDAGS #### [facility] [address] [place] [address] Dr. Ashlie HillsLDL CALC NORMALSEE [facility]pelier HospitalComment on above:Result Comment: <100 mg/dl OPTIMAL 100 - 129 mg/dl NEAR OR ABOVE OPTIMAL 130 - 159 mg/dl BORDERLINE HIGH 160 - 189 mg/dl HIGH >190 mg/dl VERY HIGH Performed By: #### CVDAGS #### [facility] [address] [address] [address] Ashlie HillsTriglyceride [Mass/Vol]186 mg/dLCritically high<=150The [facility] ClinicComment on above:Performed By: #### CVDAGS #### [facility] [address] [address] [address] Ashlie HillsVLDL CALC37.2 mg/dLNormalThe [facility] ClinicComment on above: Performed By: #### CVDAGS #### [facility] [address] [address] [address] Ashlie Rhodes FUNCTION PANELon 51-00-3792Knsofmq [Mass/Vol]3.1 g/dL Critically low3.4-5.0The [facility] ClinicComment on above:Performed By: #### CBC #### [facility] [address] [address] [address] Ashlie HillsCalcium [Mass/Vol]9.2 mg/dLNormal8.5-10.1The [facility] Comment on above:Performed By: #### CBC #### [facility] [address] [address] [address] Ashlie HillsChloride [Moles/Vol]102 mmol/OBhregw65-846Fls [facility] Comment on above:Performed By: #### CBC #### [facility] [address] [address] [address] Ashlie HillsCO2 [Moles/Vol]31.9 mmol/XErkxjx75.0-32.0The [facility] Comment on above:Performed By: #### CBC #### [facility] [address] [address] [address] Ashlie HillsCreatinine [Mass/Vol]0.68 mg/dLNormal0.55-1.02The [facility] ClinicComment on above:Performed By: #### CBC #### [facility] [address] [address] [address] Dailey ChangEGFR-AF SWISS>60Normal>=60The [facility] ClinicComment on above:Performed By: #### CBC #### [facility] [address] [address] [address] Ashlie GrahamGFR-NON AF SWISS>60Normal>=60The [facility] ClinicComment on above:Performed By: #### CBC #### [facility] [address] [address] [address] Ashlie HillsGlucose [Mass/Vol]131 mg/dLCritically bgak47-540Lzr [facility] ClinicComment on above:Performed By: #### CBC #### [facility] [address] [address] [address] Ashlie HillsPhosphate [Mass/Vol]4.0 mg/dLNormal2.6-4.7The [facility] Comment on above:Performed By: #### CBC #### [facility] [address] [address] [address] Ashlie HillsPotassium [Moles/Vol]4.0 mmol/LNormal3.5-5.1[facility] Comment on above:Performed By: #### CBC #### [facility] [address] [address] [address] Ashlie HillsSodium [Moles/Vol]141 mmol/KNlokmq170-767GrwOhiohealth Mansfield Hospital Comment on above:Performed By: #### CBC #### [facility] [address] [address] [address] Ashlie HillsUrea nitrogen [Mass/Vol]17.0 mg/dLNormal7.0-18.0The [facility] ClinicComment on above:Performed By: #### CBC #### [facility] [address] [address] [address] Ashlie HillsUA RANDOM W/MICROSCOPICon 98-60-5039MJSFRLGGTDJD SEENNormalNONE SEENThe [facility] ClinicComment on above:Performed By: #### INFLUAB #### [facility] [address] [address] [address] Ashlie HillsBilirubin Ql (U)NegativeNormalNEGATIVEThe [facility] Comment on above:Performed By: #### INFLUAB #### [facility] [address] [address] [address] Ashlie HillsCASTNONE SEENNormalNONE SEENOhiohealth Mansfield HospitalComment on above:Performed By: #### INFLUAB #### [facility] [address] [address] [address] Ashlie Chilel (U)CLEARNormalCLEAROhiohealth Mansfield HospitalComment on above: Performed By: #### INFLUAB #### [facility] [address] [place] [address] Dr. Ashlie Prescottlor (U)YELLOWNormalYELLOWOhiohealth Mansfield HospitalComment on above: Performed By: #### INFLUAB #### [facility] [address] [place] [address] Dr. Ashlie HillsCrystals LM Nom (Urine sed)NONE SEENNormalNONE SEENOhiohealth Mansfield HospitalComment on above:Performed By: #### INFLUAB #### [facility] [address] [place] [address] Dr. Dailey ChangEpithelial cells LM Ql (Urine sed)FEWAbnormalNONE SEEN /RAREOhiohealth Mansfield HospitalComment on above:Performed By: #### INFLUAB #### [facility] [address] [place] [address] Dr. Ashlie HillsGlucose Ql (U)NegativeNormalNEGATIVEOhiohealth Mansfield HospitalComment on above:Performed By: #### INFLUAB #### [facility] [address] [place] [address] Dr. Ashlie HillsHemoglobin Ql (U)NegativeNormalNEGATIVEAshtabula County Medical Center on above:Performed By: #### INFLUAB #### [facility] [address] [place] [address] Dr. Ashlie HillsKetones Ql (U)NegativeNormalNEGATIVEOhiohealth Mansfield HospitalComment on above:Performed By: #### INFLUAB #### [facility] [address] [place] [address] Dr. Ashlie HillsLEUKOCYTESNegativeNormalNEGATIVEOhiohealth [facility] HospitalComment on above:Performed By: #### INFLUAB #### [facility] [address] [place] [address] Dr. Ashlie SuarezCOUSCHAD SEENNormalNONE SEENThe [facility] ClinicComment on above:Performed By: #### INFLUAB #### [facility] [address] [place] [address] Dr. Ashlie Santostrite Ql (U)NegativeNormalNEGATIVEThe [facility] ClinicComment on above:Performed By: #### INFLUAB #### [facility] [address] [place] [address] Dr. Ashlie HillspH (U)5.5 [pH]Normal5-9The [facility] ClinicComment on above: Performed By: #### INFLUAB #### [facility] [address] [place] [address] Dr. Ashlie HillsZisibJGI1-7Cnkygq1-1Qot [facility] ClinicComment on above:Performed By: #### INFLUAB #### [facility] [address] [place] [address] Dr. Ashlie HillsSPEC GRAVITY>=1.211Yafrzlfg3.005-<=1.025The [facility] Comment on above:Performed By: #### INFLUAB #### [facility] [address] [place] [address] Dr. Ashlie Vaughn MZVTZKZ955 mg/dlAbnormalNEGATIVE/ TRACEThe [facility] Comment on above:Performed By: #### INFLUAB #### [facility] [address] [place] [address] Dr. Ashlie Metzbilinogen Qn (U)0.2 {Little'U}/dLNormal0.2 - 1.0The [facility] ClinicComment on above:Performed By: #### INFLUAB #### [facility] [address] [place] [address] Dr. Ashlie HillsWBCNONTracey SEENNormalNONE SEENThe [facility] ClinicComment on above: Performed By: #### INFLUAB #### [facility] [address] [place] [address] Dr. Ashlie Christine ACID SERUMon 29-09-7470Ilfka [Mass/Vol]5.0 mg/dLNormal 2.6-6.0The [facility] ClinicComment on above:Performed By: #### INFLUAB #### [facility] [address] [address] [address] Ashlie Recinos T PROTEIN CREAT RATIOon 85-33-9061Harkxgw (U) [Mass/Vol] 77.9 mg/dLCritically high<=12.0The [facility] ClinicComment on above:Performed By: #### CVDAGS #### [facility] [address] [place] [address] Dr. Ashlie Sullivan PROT CREAT RAT0.44NormalThe [facility] ClinicComment on above: Performed By: #### CVDAGS #### [facility] [address] [place] [address] Dr. Ashlie Recinos EOBUR478.15 mg/pLSimpbd73.00-300.00[facility] Comment on above:Performed By: #### CVDAGS #### [facility] [address] [place] [address] Dr. Ashlie OrdoñezLTREGINO URINEon 96-93-2548AZCRNZE URINECulture Observations: GREATER THAN TWO ORGANISMS PRESENT, HEAVILY MIXED. PLEASE RESUBMIT CLEAN CATCH MID-STREAM URINE IF CLINICALLY INDICATED.NormalThe [facility] ClinicComment on above:Performed By: #### INFLUAB #### [facility] [address] [place] [address] Dr. Ashlie VernonC AUTO DIFFon 83-93-3626HJJO #0.1 103/ulNormal0.0-0.1The [facility] ClinicComment on above:Performed By: #### CBC #### [facility] [address] [place] [address] Dr. Ashlie HillsBasophils/100 WBC (Bld)0.5 %Normal0.2-2.0[facility] Comment on above:Performed By: #### CBC #### [facility] [address] [place] [address] Dr. Ashlie Mcintosh #0.4 103/ulNormal0.0-0.7The [facility] ClinicComment on above: Performed By: #### CBC #### [facility] [address] [address] [address] Ashlie Grahamosinophils/100 WBC (Bld)2.4 %Normal0.9-7.0[facility] Comment on above:Performed By: #### CBC #### [facility] [address] [place] [address] Dr. Ashlie Grahamrythrocyte distribution width (RBC) [Ratio]14.1 %Qsiptu95.0-15.0 [facility] HospitalComment on above:Performed By: #### CBC #### [facility] [address] [place] [address] Dr. Ashlie HillsHematocrit (Bld) [Volume fraction]55.9 %Critically high36.0-48.0 The [facility] ClinicComment on above:Performed By: #### CBC #### [facility] [address] [place] [address] Dr. Ashlie HillsHemoglobin (Bld) [Mass/Vol]17.9 g/dLCritically high12.0-16.0[facility] HospitalComment on above:Performed By: #### CBC #### [facility] [address] [place] [address] Dr. Ashlie Hunter #0.06 10e3/ulCritically high0.00-0.03The [facility] Comment on above:Performed By: #### CBC #### [facility] [address] [place] [address] Dr. Ashlie Hunter %0.4 %Normal0.0-0.5ThKettering Memorial HospitalComment on above: Performed By: #### CBC #### [facility] [address] [place] [address] Dr. Ashlie Swenson #5.8 103/ulCritically high1.2-3.8The [facility] Comment on above:Performed By: #### CBC #### [facility] [address] [place] [address] Dr. Ashlie Jademphocytes/100 WBC (Bld)35.4 %Tgytwc70.5-60.0The [facility] ClinicComment on above:Performed By: #### CBC #### [facility] [address] [place] [address] Dr. Ashlie GhoshUAL DIFF REQNONormalThe [facility] ClinicComment on above: Performed By: #### CBC #### [facility] [address] [place] [address] Dr. Ashlie Mckeon (RBC) [Entitic mass]29.4 phBofnfu94.7-34.0The [facility] ClinicComment on above:Performed By: #### CBC #### [facility] [address] [place] [address] Dr. Ashlie Mckeon (RBC) [Mass/Vol]32.0 g/wOHnqkoa27.9-35.2The [facility] ClinicComment on above:Performed By: #### CBC #### [facility] [address] [place] [address] Dr. Ashlie Mckeon (RBC) [Entitic vol]91.8 qCSutgkn79.0-99.0The [facility] ClinicComment on above:Performed By: #### CBC #### [facility] [address] [place] [address] Dr. Ashlie Killian #0.8 103/ulNormal0.3-0.8The [facility] ClinicComment on above:Performed By: #### CBC #### [facility] [address] [place] [address] Dr. Ashlie Palominoocytes/100 WBC (Bld)4.8 %Normal1.7-12.0[facility] Comment on above:Performed By: #### CBC #### [facility] [address] [place] [address] Dr. Ashlie Olsen #9.3 103/ulCritically high1.4-6.5The [facility] Comment on above:Performed By: #### CBC #### [facility] [address] [address] [address] Ashlie HillsNeutrophils/100 WBC (Bld)56.5 %Mvfooa95.0-75.0The [facility] ClinicComment on above:Performed By: #### CBC #### [facility] [address] [address] [address] Ashlie HillsPlatelet mean volume (Bld) [Entitic vol]12.9 fLNormal9.5-13.5The [facility] ClinicComment on above:Performed By: #### CBC #### [facility] [address] [address] [address] Ashlie HillsPLT127 103/ulCritically ssy808-324Bms [facility] ClinicComment on above:Performed By: #### CBC #### [facility] [address] [address] [address] Ashlie HillsRBC6.09 106/ulCritically high4.20-5.40The [facility] Comment on above:Performed By: #### CBC #### [facility] [address] [address] [address] Ashlie HillsWBC16.4 103/ulCritically high4.0-11.0The Peoples Hospitalment on above:Performed By: #### CBC #### [facility] [address] [address] [address] Ashlie HillsCT ABD/PELVIS WO CONon 12-31-6421AN ABD/PELVIS WO CON Begin Addendum #1 Mildly [...] without diverticulitis. Severe right hip degenerative change.NormalThe [facility] URINE PROFILEon [id number] Ql (U) NegativeNormalNEGATIVEThe [facility] ClinicComment on above:Performed By: #### EVONNE CLAY #### [facility] [address] [place] [address] Dr. Ashlie Chilel (U)CLEARNormalCLEARThe [facility]fredo HospitalComment on above: Performed By: #### KRISTINAR, UMICRO #### [facility] [address] [address] [address] Ashlie Roberts (U) ORANGEAbnormalYELLOWOhiohealth Mansfield HospitalComment on above:Performed By: #### OBED, UMICRO #### [facility] [address] [address] [address] Ashlie Clayton micrscopic examination will be performed if indicated. NormalOhiohealth Mansfield HospitalComment on above:Performed By: #### KRISTINAR, UMICRO #### [facility] [address] [address] [address] Ashlie HillsGlucose Ql (U)250 mg/dlAbnofrye regional medical center alexander campusNEGKnox Community Hospital Comment on above:Performed By: #### OBED, UMICRO #### [facility] [address] [address] [address] Ashlie HillsHemoglobin Ql (U)NegativermalNEGKnox Community Hospital Comment on above:Performed By: #### OBED, UMICRO #### [facility] [address] [address] [address] Ashlie Connor Ql (U)NegativeNormalNEGATIVEOhiohealth Mansfield HospitalComment on above:Performed By: #### OBED, UMICRO #### [facility] [address] [address] [address] Ashlie HillsLEUKOCYTESNegativeNormalNEGKnox Community HospitalComment on above:Performed By: #### KRISTINAR, UMICRO #### [facility] [address] [address] [address] Ashlie Santostrite Ql (U)NegativeNormalNEGATIVEOhiohealth Mansfield HospitalComment on above:Performed By: #### ERUR, UMICRO #### [facility] [address] [address] [address] Ashlie HillspH (U)5.0 [pH]Normal5-9[facility] HospitalComment on above: Performed By: #### ERUR, UMICRO #### [facility] [address] [place] [address] Dr. Ashlie HillsProtein (U) [Mass/Vol]100 mg/dLAbnormalNEGATIVE/ TRACEThe [facility] ClinicComment on above:Performed By: #### MADELINE CLAYRO #### [facility] [address] [place] [address] Dr. Ashlie HillsSPEC GRAVITY>=1.295Xtkpmihu6.005-<=1.025The [facility] Comment on above:Performed By: #### MADELINE CLAYRO #### [facility] [address] [place] [address] Dr. Ashlie Sullivan MICRO INDINDICATEDNoTriHealth McCullough-Hyde Memorial HospitalComment on above: Performed By: #### EVONNE CLAY #### [facility] [address] [place] [address] Dr. Ashlie Metzbilinogen Qn (U)1.0 {Little'U}/dLNormal0.2 - 1.0The [facility] ClinicComment on above:Performed By: #### EVONNE CLAY #### [facility] [address] [place] [address] Dr. Ashlie Jones CHEM 8 (BAS METB)on 63-88-3615Pyyuc gap [Moles/Vol]12.1 mmol/LNormalThe [facility] ClinicComment on above:Performed By: #### INFLUAB #### [facility] [address] [place] [address] Dr. Ashlie HillsCalcium [Mass/Vol]9.0 mg/dLNormal8.5-10.1[facility] Comment on above:Performed By: #### INFLUAB #### [facility] [address] [place] [address] Dr. Ashlie HillsChloride [Moles/Vol]101 mmol/WIorkqu84-401ZhmOhiohealth [facility] Hospital Comment on above:Performed By: #### INFLUAB #### [facility] [address] [place] [address] Dr. Ashlie HillsCO2 [Moles/Vol]29.1 mmol/PEktqfy75.0-32.0[facility] Comment on above:Performed By: #### INFLUAB #### [facility] [address] [place] [address] Dr. Ashlie HillsCreatinine [Mass/Vol]0.86 mg/dLNormal0.55-1.02The [facility] ClinicComment on above:Performed By: #### INFLUAB #### [facility] [address] [place] [address] Dr. Dailey ChangEGFR-AF SWISS>60Normal>=60The [facility] ClinicComment on above:Performed By: #### INFLUAB #### [facility] [address] [place] [address] Dr. Ashlie GrahamGFR-NON AF SWISS>60Normal>=60The [facility] ClinicComment on above:Performed By: #### INFLUAB #### [facility] [address] [place] [address] Dr. Ashlie HillsGlucose [Mass/Vol]236 mg/dLCritically atwr25-943Qwo [facility] ClinicComment on above:Performed By: #### INFLUAB #### [facility] [address] [place] [address] Dr. Ashlie HillsPotassium [Moles/Vol]4.2 mmol/LNormal3.5-5.1The [facility] Comment on above:Performed By: #### INFLUAB #### [facility] [address] [place] [address] Dr. Ashlie HillsSodium [Moles/Vol]138 mmol/RQqrghq277-767How [facility] Comment on above:Performed By: #### INFLUAB #### [facility] [address] [place] [address] Dr. Ashlie HillsUrea nitrogen [Mass/Vol]11.0 mg/dLNormal7.0-18.0The [facility] ClinicComment on above:Performed By: #### INFLUAB #### [facility] [address] [place] [address] Dr. Yilan ChangUrea nitrogen/Creatinine [Mass ratio]12.8 mg/mgNoTriHealth McCullough-Hyde Memorial HospitalComment on above:Performed By: #### INFLUAB #### [facility] [address] [place] [address] Dr. Ashlie Recinos MICROSCOPIC ONLYon 27-71-1102SSDSPOXYABFSEOqnduntrRMTX SEEN [facility] HospitalComvib[facility] [place] on above:Performed By: #### OBED UMICRO #### [facility] [address] [address] [address] Ashlie Cortez identified Cx Nom (U)INDICATEDGrand Lake Joint Township District Memorial HospitalComvibra [facility] [place] on above:Performed By: #### OBED UMICRO #### [facility] [address] [place] [address] Dr. Ashlie Thibodeaux SEENNormalNONE SEENOhiohealth Mansfield HospitalComvibra hospital [facility] [place] on above:Performed By: #### OBED UMICRO #### [facility] [address] [place] [address] Dr. Ashlie Banegas LM Nom (Urine sed)NONE SEENNormalNONE SEENOhiohealth [facility] HospitalComvibra hospital [facility] [place] on above:Performed By: #### OBED UMICRO #### [facility] [address] [place] [address] Dr. Dailey ChangEaustinthelial cells LM Ql (Urine sed)MODERATEAbnormalNONE SEEN /RARE The [facility] ClinicComvibra hospital [facility] [place] on above:Performed By: #### OBED UMICRO #### [facility] [address] [place] [address] Dr. Ashlie HaroE SEENNormalNONE SEENOhiohealth [facility]field HospitalComvibra [facility] [place] [place] on above:Performed By: #### OBED UMICRO #### [facility] [address] [place] [address] Dr. Ashlie PruettIbbkxPYX2-5Nnhtdf0-7Fmy [facility] ClinicComvibra hospital [facility] [place] on above:Performed By: #### OBED UMICRO #### [facility] [address] [place] [address] Dr. Ashlie BhaktaBC0-2AbnormalNONE SEENTriHealth on above: Performed By: #### ERUR, UMICRO #### [facility] [address] [address] [address] Ashlie VelásquezASTPRESENTAbnormalNONE SEENTriHealth on above:Performed By: #### ERUR, UMICRO #### [facility] [address] [address] [address] Ashlie Hutchinson RIGHT 1 OR 2 VWS WITH PELVISon [id number] RIGHT 1 OR 2 VWS WITH PELVISUnMercy Health [facility] Department of Radiology [address] [place] [id number] Patient Name: MITZI MACIAS : 1970 Sex: F Age: Race: White Pt. Location: Patient Status: O Ordered Date: 07/20/2020 1:45:00 PM Completed Date: 07/20/2020 01:57 PM Requesting Provider: LIZ EISENBERG Attending Provider: LIZ EISENBERG Report Copy To: MCKAYLA BLAS Signs & Symptoms: M25.551 Pain in right hip I10 History: [place] Comments: evaluate Exam: HIP RIGHT 1 [...] MRI. Electronically signed: Pipo Acevedo. Transcribed by: [email or web address], User Resident: Electronically Signed by: PIPO ACEVEDO @ 07/20/2020 03:45 [facility] ClinicComment on above:Order Comment: evaluate Vital Signs Date TimeVital SignValuePerforming EbvdizxdjVblknxvw66-03-1675 17:58-0400Body mumdpx946.1 cmLisa Aichholz LASER ENGINEER-C Work Phone: [phone]10-22-2025 17:58-0400 Body mass index (BMI) [Ratio]61 kg/m2Lisa Aichholz LASER ENGINEER-C Work Phone: [phone]10-22-2025 17:58-0400 Body jujcumnmeao60.1 [degF]Mckayla Aichholz LASER ENGINEER-C Work Phone: [phone]10-22-2025 17:58-0400 Body ydffei603.18 kgLisa Aichholz LASER ENGINEER-C Work Phone: [phone])[address]10-22-2025 17:58-0400 Diastolic blood mm[Hg]Mckayla Aichholz LASER ENGINEER-C Work Phone: [phone]10-22-2025 17:58-0400 Heart rate84 /minLisa Aichholz LASER ENGINEER-C Work Phone: [phone]10-22-2025 17:58-0400 Respiratory rate20 /minLisa Aichholz LASER ENGINEER-C Work Phone: [phone])[address]10-22-2025 17:58-0400 SaO2% (BldA) [Mass fraction]90 %Mckayla Aichholz LASER ENGINEER-C Work Phone: [phone]10-22-2025 17:58-0400 Systolic blood gbjvvles418 mm[Hg]Mckayla Aichholz LASER ENGINEER-C Work Phone: [facility]09-29-2025 15:37-0400 Body tylilmnrpxw90.1 [degF]Mckayla Harshadholz LASER ENGINEER-C Work Phone: [phone]-[facility]09-29-2025 15:37-0400 Diastolic blood mm[Hg]Mckaylataryn Patriciaholz LASER ENGINEER-C Work Phone: [phone]09-29-2025 15:37-0400 Heart rate81 /minLisa Aichholz LASER ENGINEER-C Work Phone: [phone]09-29-2025 15:37-0400 Respiratory rate20 /minLisa Aichholz LASER ENGINEER-C Work Phone: [phone]09-29-2025 15:37-0400 SaO2% (BldA) [Mass fraction]92 %Mckayla Harshadholz LASER ENGINEER-C Work Phone: [phone] [place], [place] [address]09-29-2025 15:37-0400 Systolic blood mm[Hg]Mckayla Patriciaholz LASER ENGINEER-C Work Phone: [phone]-[facility]07-24-2025 09:48-0400 Body .2 Reji Souza MD Work Phone: [facility] HospitalKhdhwljqkg92-26-8013 09:48-0400Body mass index (BMI) [Ratio]56.38 kg/y5RmnjoRain Souza MD Work Phone: [facility] HospitalKcerfahipl16-79-5788 09:48-0400Body izlill820.29 kgRain Souza MD Work Phone: [facility] HospitalRtlfivzrua83-14-7440 09:48-0400Diastolic blood xaskuycc59 mm[Hg]Rain Souza MD Work Phone: [facility] HospitalWmpydhtzhh50-69-6011 09:48-0400Heart rate72 /min Rain Souza MD Work Phone: noPike [facility] HospitalRuuptgvvfn45-31-5959 09:48-0400Respiratory rate16 /minRain Souza MD Work Phone: noPike County Memorial HospitalJvxhmokqep27-38-7399 09:48-0486EkJ7% (BldA) [Mass fraction]84 %Rain Souza MD Work Phone: [facility] HospitalKzckjxenjf70-65-9321 09:48-0400Systolic blood dqtewixu752 mm[Hg]Rain Souza MD Work Phone: [facility] HospitalWzuljatmnp33-34-1985 18:11-0400Body mass index (BMI) [Ratio]58.64 kg/m2Lisa Chetz LASER ENGINEER Work Phone: [facility] HospitalXuvtyigwym93-72-3099 18:11-0400Body temperature 98.49 [degF]Mckayla Wan LASER ENGINEER Work Phone: [facility] HospitalAmyppeciwv88-36-2149 18:11-0400Body .83 kgLisa Chetz LASER ENGINEER Work Phone: [facility] HospitalJawweeoqvr46-54-1857 18:11-0400Diastolic blood mm[Hg]Mckayla Wan LASER ENGINEER Work Phone: [facility] HospitalYhdppfszqn38-66-3120 18:11-0400Heart rate81 /min Mckayla Wan LASER ENGINEER Work Phone: [facility] HospitalBamhygybhe37-66-9888 18:11-0400Respiratory rate20 /minLisa Chetz LASER ENGINEER Work Phone: [facility] HospitalAanehfdnjm91-69-9133 18:11-6244LcA0% (BldA) [Mass fraction]90 %Mckayla Wan LASER ENGINEER Work Phone: [facility] HospitalJypixlqtfg57-41-2382 18:11-0400Systolic blood mccyszkp996 mm[Hg]Mckayla Wan LASER ENGINEER Work Phone: [facility] HospitalYzjeuwbjhz60-57-6786 10:19-0400Body temperature 98.01 [degF]Mckayla Rosenbergz LASER ENGINEER Work Phone: [facility] HospitalCuhmfhqqzx82-31-8987 10:19-0400Diastolic blood ujzssuji74 mm[Hg]Mckayla Harshadholz LASER ENGINEER Work Phone: [facility] HospitalPbebnodixh42-05-1685 10:-0Heart rate71 /min Mckayla Harshadholz LASER ENGINEER Work Phone: [facility] HospitalLxojhnfdye84-05-9600 10:-399Respiratory rate20 /minLisa Harshadholz LASER ENGINEER Work Phone: [facility] HospitalZqqonelexu43-18-5480 10:6667LbA7% (BldA) [Mass fraction]88 %Mckayla Rosenbergz LASER ENGINEER Work Phone: [facility] HospitalXbvnxvzvjr35-53-3526 10:-399Systolic blood dewiiobm953 mm[Hg]Mckayla Harshadholz LASER ENGINEER Work Phone: [facility] HospitalDekpubstll40-85-8404 14:11-0400Body qsyiqm820.2 cmLisa Harshadholz LASER ENGINEER Work Phone: [facility] HospitalUxlusxtipk56-67-0360 14:11-0400Body mass index (BMI) [Ratio]56.51 kg/m2Maria De Jesussa Harshadholz LASER ENGINEER Work Phone: [facility] HospitalRsjyxrejxh93-01-0731 14:11-0400Body temperature 98.71 [degF]Mckayla Harshadholz LASER ENGINEER Work Phone: [facility] HospitalEaekjekhye59-55-9390 14:11-0400Body lqfzso571.66 kgLisa Juanjosehholz LASER ENGINEER Work Phone: [facility] HospitalTdkwxqymgq55-30-1897 14:11-0400Diastolic blood fikoxnft63 mm[Hg]Mckayla Harshadholz LASER ENGINEER Work Phone: [facility] HospitalUyycrkvucm81-87-0421 14:11-0400Heart rate75 /min Mckayla Harshadholz LASER ENGINEER Work Phone: [address] [address]Bacxdtdqlb99-19-6415 14:11-0400Respiratory rate18 /minMaria De Jesus Wan LASER ENGINEER Work Phone: [facility] HospitalVpfbdbvqjb53-58-6009 14:11-8568GsO6% (BldA) [Mass fraction]90 %Mckayla Wan LASER ENGINEER Work Phone: noPike County Memorial HospitalUqkixhjgrx72-92-2358 14:11-0400Systolic blood mm[Hg]Mckayla Sowdona LASER ENGINEER Work Phone: [facility] HospitalCbmkfkupmm44-44-5705 11:21-0400Body epphto072.2 Reji Souza MD Work Phone: [facility] HospitalSxbfqyajca70-95-5707 11:21-0400Body mass index (BMI) [Ratio]55.91 kg/y2JmodsRain Souza MD Work Phone: [address] [place], [place] [address]Cdrtcolxsk60-60-3322 11:21-0400Body onqrwv792.93 kgRain Souza MD Work Phone: [facility] HospitalKgxqnppdmo46-53-2350 11:21-0400Diastolic blood heqdgkig74 mm[Hg]Rain Souza MD Work Phone: [address] [place], [place] [address]Tuqawmjkch08-24-8072 11:21-0400Heart rate70 /min Rain Souza MD Work Phone: [facility] HospitalThdwffjkbo78-46-5717 11:21-0400Respiratory rate16 /minRain Souza MD Work Phone: [address] [place], [place] [address]Wmvgqgohrv97-23-4978 11:21-5612UqG0% (BldA) [Mass fraction]91 %Rain Souza MD Work Phone: [address] [place], [place] [address]Lxkdhaumpg02-73-3267 11:21-0400Systolic blood keplefvf011 mm[Hg]Rain Souza MD Work Phone: [address] [place], [place] [address]Mrgywctdkm29-06-9949 17:44-0500Body mass index (BMI) [Ratio]57.31 kg/m2Mckayla Blas LASER ENGINEER Work Phone: [facility] HospitalKxcjdvzmwq22-66-4952 17:44-0500Body temperature 98.01 [degF]Mckayla Sowdona LASER ENGINEER Work Phone: [facility] HospitalYkbmqdlsux69-87-5400 17:44-0500Body .97 kgMckayla Juanjosecayetanodallin LASER ENGINEER Work Phone: [facility] HospitalFqtiksilnw75-36-3224 17:44-0500Diastolic blood tvzcwkyx31 mm[Hg]Mckayla Wan LASER ENGINEER Work Phone: [facility] HospitalBaeqevltng59-29-5411 17:44-0500Heart rate83 /min Mckayla Wan LASER ENGINEER Work Phone: [facility] HospitalWlprivkqpy94-53-3447 17:44-0500Respiratory rate18 /minMckayla Blas LASER ENGINEER Work Phone: [facility] HospitalBthlavoywb35-45-6509 17:44-7072GgB8% (BldA) [Mass fraction]91 %Mckayla Patriciadallin LASER ENGINEER Work Phone: [facility] HospitalHswcfktkra41-72-0605 17:44-0500Systolic blood pqtpodex131 mm[Hg]Mckayla Patriciadallin LASER ENGINEER Work Phone: [facility] HospitalFdiveqhxfa00-93-6669 10:00-0500Blood Pressure LocationPaalexezra ARAUZ [facility] [place] 964952-04-2024 10:00-0500Diastolic blood sbrbdubo06 mm[Hg]Elbert ARAUZ [facility] [place] 964952-04-2024 10:00-0500Heart rate76 /minElbert ARAUZ [facility] [place] 964952-04-2024 10:00-0500Systolic blood ouaftvnq975 mm[Hg]Elbert ARAUZ [facility] [place] 318101-19-2024 10:20-0500Body byjgdb500.2 Reji Souza MD Work Phone: [address] [place], [place] [address]Mqvnypvbfy43-31-5336 10:20-0500Body mass index (BMI) [Ratio]56.7 kg/l1WqauhRain Souza MD Work Phone: [address] [place], [place] [address]Bhyszyejzr96-94-1069 10:20-0500Body glaira236.2 kgRain Souza MD Work Phone: [address] [place], [place] [address]Wvllhyjewi78-69-7473 10:20-0500Diastolic blood pzgxzhyh89 mm[Hg]Rain Souza MD Work Phone: [address] [place], [place] [address]Hodfakyhlw86-58-1691 10:20-0500Heart rate72 /min Rain Souza MD Work Phone: [address] [place], [place] [address]Fmokarqhph75-68-6004 10:20-0500Respiratory rate16 /minRain Souza MD Work Phone: [place] [address]Afanujnldi73-83-8865 10:20-0500Systolic blood mm[Hg]Rain Souza MD Work Phone: [address] [place], [place] [address]Duhltdnpwd81-93-0045 10:27-0400Body wrkrta179.1 Jamal Blas LASER ENGINEER Work Phone: [facility] HospitalMjbvsggraa69-18-3866 10:27-0400Body mass index (BMI) [Ratio]61.01 kg/m2Mckayla Blas LASER ENGINEER Work Phone: [facility] HospitalUablpypyib72-21-5077 10:27-0400Body temperature 98.49 [degF]Mckayla Blas LASER ENGINEER Work Phone: [facility] HospitalYoqqbostue10-68-9148 10:27-0400Body qlinjl959.29 kgMckayla Blas LASER ENGINEER Work Phone: [place] [address]Bgsmtifpvb03-07-9598 10:27-0400Diastolic blood wlxnzdco27 mm[Hg]Mckayla Blas LASER ENGINEER Work Phone: noP[facility] HospitalDyrogaabhb49-86-8061 10:27-0400Heart rate77 /min Mckayla Blas LASER ENGINEER Work Phone: [facility] HospitalNjqlpkgeia25-24-5167 10:27-0400Respiratory rate19 /minMckayla Blas LASER ENGINEER Work Phone: [facility] HospitalUkfjxgtjwn28-08-8061 10:27-5245EuL4% (BldA) [Mass fraction]92 %Mckayla Blas LASER ENGINEER Work Phone: [facility] HospitalTehllrcpum98-19-6223 10:27-0400Systolic blood ckyvbmjd997 mm[Hg]Mckayla Blas LASER ENGINEER Work Phone: [facility] HospitalCpafafeknd49-24-6136 15:00-0400Body .18 cmAbdul Tico Other [employer] Other [id number] 15:00-0400Body oulnzkzcjer37.6 [degF]Stephanie Tico Other [employer] Other 701382-91-5055 15:00-0400Diastolic blood pujekawn08 mm[Hg] Stephanie Tico Other [employer] Other 08-31-2022 15:00-0400Respiratory rate20 /minAbdul Tico Other [employer] Other 7-849759-32229914-05-8761 15:00-4970EhP2% (BldA) [Mass fraction]91 % Stephanie Tico Other [employer] Other 758719-24-2772 15:00-0400Systolic blood hozfgxuv100 mm[Hg] Stephanie Tico Other [employer] Other 08-15-2022 09:20-0400Body eyxpzi758.18 cmAbdul Tico Other [employer] Other 08-15-2022 09:20-0400Body .5 [degF]Stephanie Tico Other [employer] Other 08-15-2022 09:20-0400Diastolic blood vjevjiub92 mm[Hg] Stephanie [facility] [employer] Other 08-15-2022 09:20-0400Respiratory rate20 /minAbdul Tico Other [employer] Other 08-15-2022 09:20-9118FgQ5% (BldA) [Mass fraction]91 % Stephanie Tico Other [employer] Other 08-15-2022 09:20-0400Systolic blood mm[Hg] Stephanie Tico Other [employer] Other 08-01-2022 10:24-0400Blood Pressure LocationPataylor regional hospitalezra ARAUZ [facility] 08-01-2022 10:24-0400Diastolic blood tempwctz40 mm[Hg] Elbert ARAUZ [facility] 08-01-2022 10:24-0400Heart rate70 /minPataylor regional hospitalezra ARAUZ [facility] 08-01-2022 10:24-0400Respiratory rate16 /minPatrick REGLA [facility] 08-01-2022 10:24-0400Systolic blood lpgvxjue936 mm[Hg] Elbert ARAUZ [facility] Encounters Encounter DateEncounter TypeCare ProviderFacilityStart: 47-90-8777doagfciiqfIzeh Jo Aichholz MICRO PHOTOGRAPHER-CNPFacility:[facility]art: 05-22-2025 ambulatoryLance Huey Urias DPMFacility:[facility] Childrentart: 05-18-2025 End: 37-42-4194xfmrczurjlZmvl Jo Aichholz MICRO PHOTOGRAPHER-CNPFacility:[facility]trStart: 04-29-2025 End: 82-53-1343xanljqrxqeEjhv J Aichholz LASER ENGINEER-C Work Phone: -[facility] ClydeStart: 04-29-2025 End: 01-79-2512Ssumwoa encounter procedureLisa Krystal Blas LASER ENGINEER-C-[facility] [place] Work Phone: Start: 04-23-2025 End: 00-59-9192zcxxxonkhnRngvne Nas Rojas MICRO PHOTOGRAPHER-CNPFacility:[facility] FindlayStart: 04-17-2025 End: 05-37-0808kzsiqxldaqCaqq Jo Aichholz MICRO PHOTOGRAPHER-CNPFacility:[facility] Childrentart: 04-06-2025 End: 13-94-5757opzhxmovyfKyqz J Aichholz LASER ENGINEER-C Work Phone: [facility] Work Phone: Start: 04-06-2025 End: 93-72-9260Jnlaisr encounter procedureLisa Krystal Blas LASER ENGINEER-C-[facility] [place] Work Phone: Start: 68-29-0627Xhqajjp encounter procedureMckayla Blas LASER ENGINEER-C Work Phone: [facility]art: 49-80-0381Nmb- patient / Non-visitLanashley Urias DPM-[facility] Work Phone: Start: 57-31-3448Cym-patient / Non-visitPrice Ramsey DO-[facility] Work Phone: Start: 20-98-9380pnkrdidqmmKyphhd Nas Bob MICRO PHOTOGRAPHER-STREETCAR STARTER [facility] FindlayStart: 03-23-2025 End: 88-89-7477ovjgffldplGwrvqj Nas Bob MICRO PHOTOGRAPHER-CNPFacility:[facility] FindlayStart: 03-11-2025 End: 59-22-7415fxweqysnwwJvkhc Huey Urias DPMFacility: [facility]trStart: 03-09-2025 End: 36-10-7204XgkwvhAqcq Aichholz NP Work Phone: noms [facility] FMComment on above:Tobacco user; Encounter for smoking cessation counselingStart: 01-29-2025 End: 91-44-5861Rzhvgu Jack Souza MD Work Phone: noms ENDOCRINOLOGYStart: 01-29-2025 End: 84-23-1323Hvrcurashley Souza MD Work Phone: noms ENDOCRINOLOGYStart: 01-29-2025 End: 62-34-9399Fdzmkldqh Result EncounterGeneric External Data ProviderNOMS External Department UnsolicitedStart: 01-29-2025 End: 76-36-4979yygpwgyiupENRQRRichard Negron AvailableStart: 01-29-2025 End: 44-26-1770Afeqnf outpatient visit 25 minutesRain Souza MD Work [...] index (BMI) of50.0 to 59.9 in adult ([facility])Start: 01-26-2025 End: 49-05-1359wjgclbfmxnFXAW AICHHOLZNot AvailableStart: 01-26-2025 End: 69-60-3439Jybhwdd encounter Marcela Blas NP Work Phone: noms CWM FMComment on above:Encounter for subsequent annual wellness visit (AWV) in Medicare patient (Primary Dx); Mixed hyperlipidemia ; Type 2 diabetes mellitus with complication, with long-term current use of insulin (HCC); Bilateral lower extremity edema; Gastro-esophageal reflux disease without esophagitis; Chronic diastolic heart failure ([facility]); Primary hypertension ; Pulmonary hypertension ([facility]); Diabetic polyneuropathy associated with type 2 diabetes mellitus ([facility]); Pulmonary emphysema, unspecified emphysema type ([facility]); Moderate persistent asthma without complication ([facility]); Insomnia; Non-seasonal allergic rhinitis, unspecified trigger; Type 2 diabetes mellitus with unspecified complications ([facility]); Anxiety and depression ; Antibiotic-induced yeast infection; Chronic obstructive pulmonary disease, unspecified (HCC); Hyperlipidemia, unspecified ; Vaginal yeast infection; Morbid (severe) obesity due to excess calories ([facility])Start: 01-06-2025 End: 69-03-2760jhcareerziYBVEAXL [facility] Hospitaltart: 12-18-2024 End: 45-31-8199PaaiagXbnb Aichholz LASER ENGINEER Work Phone: [facility] CWM FMComment on above:Hyperlipidemia, unspecified ; Tobacco user; Encounter for smoking cessation counselingStart: 12-09-2024 End: 49-25-2517Snfvwe Shirlene Blas LASER ENGINEER Work Phone: noms CWM FMStart: 12-09-2024 End: 59-88-4878Jcbyko Shirlene Blas NP Work Phone: [facility] CWM FMStart: 12-09-2024 End: 40-55-1169phdibmxnpbVRAD AICCayetanoHOLZNot AvailableStart: 12-09-2024 End: 95-17-0647Ssummz outpatient visit 25 minutesMckayla Blas LASER ENGINEER Work Phone: noms CW FMComment on above:Cellulitis of left lower extremity (Primary Dx); COPD exacerbation (CMS/HCC); Primary hypertension (CMS/HCC); Pulmonary hypertension (CMS/HCC); Morbid (severe) obesity due to excess calories ([facility]/HCC); Type 2 diabetes mellitus with complication, with long-term current use of insulin ([facility]); Anxiety and depression ([facility]); Fever, unspecified fever causeStart: 12-04-2024 End: 87-96-7288Plhiwlqsy Result EncounterGeneric External Data ProviderNOMS External Department UnsolicitedStart: 12-04-2024 End: 39-73-7949Rkohqgdni Result EncounterGeneric External Data ProviderNOID External Department UnsolicitedStart: 10-27-2024 End: 08-26-3989svuarmvwsfENOP AICHHOLZNot AvailableStart: 10-27-2024 End: 41-73-8603Jmxjoh outpatient visit 25 minutesMckayla Blas LASER ENGINEER Work Phone: noms [facility] FMComment on above:Primary hypertension (CMS/HCC) (Primary Dx); Diabetic polyneuropathy associated with type 2 diabetes mellitus ([facility]/HCC); Chronic diastolic heart failure ([facility]/HCC); Bilateral lower extremity edema; Morbid (severe) obesity due to excess calories ([facility]/HCC); Type 2 diabetes mellitus with complication, with long-term current use of insulin ([facility]/HCC); Anxiety and depression ([facility]/HCC); Cigarette nicotine dependence without complication; Encounter for screening mammogram for malignant neoplasm of breast; Insomnia; Non-seasonal allergic rhinitis, unspecified trigger; Type 2 diabetes mellitus with unspecified complications; Vitamin D deficiency, unspecified; Gastro-esophageal reflux disease without esophagitis; PAD (peripheral artery disease) ([facility]/HCC); Gastroesophageal reflux disease, unspecified whether esophagitis present; Venous ulcer of right leg ([facility])Start: 10-21-2024 End: 48-20-8862DqhhipKgux Aichdallin LASER ENGINEER Work Phone: noms CWM FMComment on above:Chronic obstructive pulmonary disease, unspecifiedStart: 10-08-2024 End: 04-37-7984Rciwcdbgp Result EncounterLisa Blas LASER ENGINEER Work Phone: noms External Department UnsolicitedStart: 10-08-2024 End: 50-15-5361Mzkqqsozb Result EncounterLisa Blas LASER ENGINEER Work Phone: noms External Department UnsolicitedStart: 10-08-2024 End: 62-85-1776Wtafdv outpatient visit 25 Adolfo Souza MD Work [...] of50.0 to 59.9 in adultStart: 10-08-2024 End: 64-93-1402jjlcewzynvBITCU F SABBAGHNot AvailableStart: 08-27-2024 End: 29-14-6975Vlxevr outpatient visit 25 minutesMckayla Wan SCHAEFER Work [...] complication, with long-term current use of insulin ([facility]); Tobacco user; Mixed hyperlipidemia ([facility]); Gout, unspecified cause, unspecified chronicity, unspecified site; Vitamin deficiency; Gastro-esophageal reflux disease without esophagitis; Edema, unspecified; Edema; Hyperlipidemia, unspecified ([facility]); Encounter for smoking cessation counseling; Venous ulcer of right leg ([facility]); Antibiotic-induced yeast infectionStart: 08-27-2024 End: 83-11-0865ffaytfnyjuJJBATaj Kendall AvailableStart: 08-27-2024 End: 16-25-4593Kilmnbhwq Result EncounterGeneric External Data ProviderNOMS External Department UnsolicitedStart: 08-27-2024 End: 69-25-1709Abrucnhug Result EncounterGeneric External Data ProviderNOMS External Department UnsolicitedStart: 08-08-2024 End: 66-11-8492fgmbynnkrnCLHXOProMedica Bay Park Hospitaltart: 07-17-2024 End: 07-20-8994XmnctvZeck Aichholz NP Work Phone: noms CWM FMStart: 07-14-2024 End: 14-78-2269Yjwvlt outpatient visit 25 Heena Blas NP Work Phone: noms CWM FMComment on above:Primary hypertension ([facility]) (Primary Dx); Diabetic polyneuropathy associated with type 2 diabetes mellitus ([facility]); Pulmonary emphysema, unspecified emphysema type ([facility]); Critical limb ischemia of right lower extremity ([facility]); PAD (peripheral artery disease) ([facility]); Gastroesophageal reflux disease, unspecified whether esophagitis present; Bilateral lower extremity edema; Venous ulcer of right leg ([facility]); Type 2 diabetes mellitus with complication, with long-term current use of insulin ([facility]); Tobacco user; Encounter for smoking cessation counseling; Kidney stone; Adrenal mass 1 cm to 4 cm in diameter ([facility]); Radiculopathy, lumbar region; Non-seasonal allergic rhinitis, unspecified trigger; Type 2 diabetes mellitus with unspecified complications ([facility])Start: 07-14-2024 End: 63-62-9699crgolkruipLLLT AICHHOLZNot AvailableStart: 07-05-2024 End: 78-06-8555KrsuqdQtef Aichholz SILVANO Work Phone: noms [facility] FMComment on above:Bilateral lower extremity edemaStart: 06-11-2024 End: 12-77-2650wzkebewdhnKgoltyi R REGLAFacility:EU SanduskyStart: 06-11-2024 End: 12-51-2157Xvnfxpg encounter procedurePanaomy ARAUZ [facility] [place] Start: 05-27-2024 End: 46-24-7406Ohrzsd Jack Souza MD Work Phone: noms ENDOCRINOLOGYStart: 05-27-2024 End: 29-96-4814Ptbjjbyousif Souza MD Work Phone: noms ENDOCRINOLOGYStart: 05-27-2024 End: 20-42-1018ahbpgfpqfnVREOP F SABBAGHNot AvailableStart: 05-27-2024 End: 04-21-4997Gghnzb outpatient visit 25 minutesRain Souza MD Work Phone: noms ENDOCRINOLOGYComment on above:Type 2 diabetes mellitus with hyperglycemia, with long-term current use of insulin (CMS/[facility]) (Primary Dx); Encounter for dietary consultation; Vitamin D deficiency; Primary hypertension (CMS/HCC); Insulin long-term use (CMS/HCC); Hyperlipemia, mixed (CMS/HCC); Microalbuminuria; Class 3 severe obesity due to excess calories with serious comorbidity and body mass index (BMI) of50.0 to 59.9 in adult (CMS/HCC)Start: 05-12-2024 End: 63-21-1149Lhuikgxrg Result EncounterGeneric External Data ProviderNOMS External Department UnsolicitedStart: 05-12-2024 End: 93-86-6912Llhrfjjtq Result EncounterGeneric External Data ProviderNOMS External Department UnsolicitedStart: 26-96-7026uqvztkuebrJIDSOMUY E SILVIA Facility:EU [place]vueStart: 04-24-2024 End: 80-18-1372Rxczylxka Result EncounterGeneric External Data ProviderNOMS External Department UnsolicitedStart: 04-24-2024 End: 36-26-9147Rfgljfbyy Result EncounterGeneric External Data ProviderNOMS External Department UnsolicitedStart: 04-14-2024 End: 51-28-2240Bhcafp flowsheetMckayla Blas LASER ENGINEER Work Phone: noms CWM FMStart: 04-14-2024 End: 94-82-0145Xshxxa flowsheetMckayla Blas LASER ENGINEER Work Phone: noms CWM FMStart: 04-14-2024 End: 00-60-2928Eisdjj outpatient visit 25 minutesLisa Blas LASER ENGINEER Work Phone: noms CWM FMComment on above:Primary [...] Tobacco user; Hyperpigmentation of skinStart: 04-14-2024 End: 51-59-9860ptomkidmbfQVYW AICHRAVIZNot AvailableStart: 04-05-2024 End: 71-82-6579NerquzDpkl Aichholz LASER ENGINEER Work Phone: noms CWM FMComment on above:Hyperlipidemia, unspecified (CMS/HCC); Bilateral lower extremity edemaVitamin D deficiency, unspecifiedStart: 46-00-5945Veiryls encounter Mary Ann Souza MD Work Phone: NOMS HealthcareStart: 12-14-2023 End: 23-28-9003Znfmoinez Result EncounterLisa Harshadholz LASER ENGINEER Work Phone: noms External Department UnsolicitedStart: 12-14-2023 End: 74-44-0351Pgfmgtwfq Result EncounterLisa Harshadholz LASER ENGINEER Work Phone: noms External Department UnsolicitedStart: 08-31-2023 End: 27-31-0736Szjevazao Result EncounterAmy Cari MAYERS Work Phone: noms External Department UnsolicitedStart: 08-31-2023 End: 83-42-5040Kpzumhbcn Result EncounterAmy Cari MAYERS Work Phone: noms External Department UnsolicitedStart: 08-17-2023 RefillLisa Patriciaholz LASER ENGINEER Work Phone: noms CWM FMComment on above:Vaginal yeast infection (Primary Dx)Start: 27-71-8393IvrveeSkxr Aichholz LASER ENGINEER Work Phone: NOSZ CWM FMComment on above:Type 2 diabetes mellitus with unspecified complications (CMS/HCC); Edema, unspecified; EdemaStart: 15-66-4437hxxmtqyhsbMKJQCEMDKHIG LAKSHMIPATHY .Facility:I1Wlrbl: 12-05-2022 End: 06-05-5864Oxuetvzyum and management of inpatientJESSICA ALONDRA .Facility:H1 Start: 11-23-2022 End: 19-67-4388xjsnrilgwyMVM MCKAYLA AICHHOLZFacility:Z8Ydngc: 11-22-2022 End: 41-20-4893aqalchmszsQOK MCKAYLA AICHHOLZFacility:J7Xaiya: 11-17-2022 End: 68-00-0686wsezveawiuQPGREVU HALKER .Facility:T3Gauyl: 11-15-2022 End: 42-50-2634Dfnfkku encounter procedureJENNIFER E SILVIA [facility] start: 10-05-2022 End: 81-64-7124kwepzkajkbGCPBXS DIAB .Facility:R4Ksslf: 09-21-2022 End: 84-97-7994fdnjmshsuhGNX MCKAYLATaryn BLASFacility:G3Fatgd: 45-87-2441acyhczfzvk COMFORT CULLENFacility:C4Tnrka: 08-24-2022 End: 54-66-5054jhwdpwqcleOA CHAPARRO S [place]ORT[place]EN .Facility:Q8Ukvtt: 08-21-2022 End: 89-86-7183smltjqrtmeYPYEJ D MEMORIAL [facility] CENTERFacility:U6Gwqsj: 07-27-2022 End: 62-65-6720pdujhutnrpHLQL TAMLYN .Facility:U7Ryoli: 07-18-2022 End: 47-29-9505cqmljscgjsNWGP TAMLYN .Facility:G0Drvbg: 07-18-2022 End: 82-37-2466vbezkrnbwrVMNNM D MEM[facility]IAL MED[facility] CENTERFacility:L5Dcfpj: 07-06-2022 End: 97-26-8463yftnlzgzykJTV MCKAYLA WANFacility:N6Tddce: 05-11-2022 End: 92-78-5041ooiuwqbgkkIGJV VALENZUELA .Facility:T0Quwpw: 04-25-2022 End: 46-63-4258mlkonzqdmpAE CHAPARRO S [place] .Facility:M0Ggpji: 04-20-2022 End: 51-88-4860ihgdcozppjLQPM VALENZUELA .Facility:X1Ssglm: 03-08-2022 End: 20-95-3021xioocmibcnEdbcj [employer] Other [employer] Other Start: 25-27-4358Xcgreq outpatient visit 15 minutes Stephanie QadirFPG NephrologyStart: 03-03-2022 End: 83-88-9238fjzgtyocgzPBB MCKAYLA Judicility:P0Cenbe: 02-20-2022 End: 46-51-6211oxuabkihywPxygd [employer] Other [employer] Other Start: 73-51-1252Sfuuql outpatient new 45 minutesAbdul QadirFPG NephrologyStart: 02-06-2022 End: 02-50-8670Ibzwjln encounter procedureElbert Mahnaz ARAUZ [facility] Wilfredo start: 01-19-2022 End: 80-13-3796jyibydzttcJEYH SOLIS .Facility:G8Imbhu: 12-24-2021 End: 05-56-3964rykgctxicsFPOUW PARKERFacility:W1Pqofd: 08-26-2020 End: 61-44-6456Ndpzryc encounter procedureVITHAL GABINODGEFacility:UTMCStart: 10-30-2019 End: 44-85-1544Xoalekwhj department patient visitDOMartha's Vineyard Hospitaltart: 10-30-2019 End: 03-98-1477Erbipijlw department patient visitCommunity Memorial Hospital Emergency DepartmentStart: 80-23-6916Eobyijbtcefe stateAbdul [employer] Other [employer] Other Procedures DateProcedureProcedure DetailPerforming ClinicianStart: 76-08-5251TW ECHO DOPPLER COMPLETEGeneric External Data ProviderStart: 01-80-4510Dubt bld gluc mntr dev cleared fda spec home useAhart Souza MD Work Phone: Start: 35-73-0542UTWED CULTURE 2Generic External Data ProviderStart: 44-30-9515VIZKJ CULTURE 1Generic External Data ProviderStart: 38-88-7796Uefx bld gluc mntr dev cleared fda spec home useRain Souza MD Work Phone: Start: 43-60-4568HHM UA (CLEAN/CATCH) MICROSCOPIC IF INDICATELisa Aichholz LASER ENGINEER Work Phone: Start: 02-43-6343FKH CBC WITH AUTO DIFFGeneric External Data ProviderStart: 38-15-5846Xvxb bld gluc mntr dev cleared fda spec home useRain Souza MD Work Phone: Start: 25-34-1301JW LUMBAR SPINE WO CONGeneric External Data ProviderStart: 86-62-4341IO ABDOMEN PELVIS W CONGeneric External Data ProviderStart: 55-42-6455XAJ CREATININEGeneric External Data ProviderStart: 42-34-9207SIIHRYISW BLOOD PRESSUREGeneric External Data ProviderStart: 31-12-6742XH TOMOSYNTHESIS SCREENING Chyna Blas NP Work Phone: Start: 93-28-0065QvqtraiutmxBpclt Sabbagh MD Work Phone: Start: 82-32-1607XWQSA CULTURE 2Generic External Data ProviderStart: 33-74-6208NAWKB CULTURE 1Generic External Data ProviderStart: 08-62-1270BOX 12-LEADAmy Cari MAYERS Work Phone: Start: 30-58-0563SiollnvfcmuZxmt Aichholz NP Work Phone: Start: 97-89-4023Yywhmxvhigx observation [Identifier] in Cervix by Cyto stainMckayla Blas NP Work Phone: H/O: hysterectomyPatrick [employer] Laparoscopic cholecystectomyPatrick [employer] Operative procedure on footPatrick [employer] Plan of Treatment DateCare ActivityDetailAuthorStart: 02-01-2026 End: 20-18-7482Tjnecbu encounter procedureNOMS CWM FMStart: 07-21-2026Medicare Annual Wellness (AWV)Medicare Annual Wellness (AWV)NOMS HealthcareStart: 44-20-6866Amzav screening for proteinDiabetes: Urine Protein ScreeningNOMS HealthcareStart: 02-95-3126Lsceekcqv for malignant neoplasm of colonNOMS HealthcareStart: 72-99-3407Fccgvjic screeningDiabetes: Retinopathy ScreeningNOMS HealthcareStart: 05-28-2025 End: 93-11-2272Vzakwmc encounter procedureNOSSM [facility] ENDOCRINOLOGYStart: 05-13-2025 Glaucoma screeningDiabetes: Retinopathy ScreeningSoutheast [facility] HospitalStart: 20-03-8664Yxdcppucvn A1c measurementDiabetes: Hemoglobin L3HTEJGSoutheast Missouri Hospital Start: 04-29-2025 End: 40-06-4407Yjiesvs encounter procedureNOSELECT [facility] FMStart: 19-33-4709Skmtjvuuv vaccinationLOGAN REGIONAL HOSPITAL HealthcareStart: 01-28-2025 End: 55-10-6540Dhmjjwx encounter fakgcpfao75/23/2025 10:50 AM EDT Office Visit [facility] [address] [place] [address] Rain Souza MD [address] [place] [address] [facility] ENDOCRINOLOGYStart: 01-26-2025 End: 32-64-1214Itvzmle encounter cihuzoaiv10/21/2025 6:00 PM EDT [facility] [address] [place] [address] Mckayla Blas, LASER ENGINEER [address] [place] [address] [facility] FMStart: 07-11-2025Medicare Annual Wellness (AWV) Medicare Annual Wellness (AWV)[facility] HealthcareStart: [id number] A1c measurementDiabetes: Hemoglobin B6LWEENSoutheast [facility] HospitalStart: 12-15-2024 End: 39-27-6132CN Breast - bilateral ScreeningBilateral screening mammogram Imaging Routine Encounter for screening mammogram for malignant neoplasm of breast Expected: 12/15/2024 (Approximate), Expires: 12/27/2025[facility] Work Phone: Comment on above:Expected: 12/15/2024 (Approximate), Expires: 12/27/2025Start: 54-34-4569Rwpzvyxzq for malignant neoplasm of breast MammogramSoutheast [facility] HospitalStart: 48-62-0855Lehnu screening for proteinDiabetes: Urine Protein ScreeningLOGAN REGIONAL [facility] HealthcareStart: 10-27-2024 End: 17-56-9249Sgzhcnd encounter qgytvhrpm58/21/2025 2:00 PM EDT Office Visit [facility] [address] [place], [place] [address] Mckayla Blas, LASER ENGINEER [address] [place] [address] [facility] FMStart: 10-08-2024 End: 18-66-4647Fzcajpx encounter ycwcwhfyd98/02/2025 11:20 AM EDT Office Visit [facility] [address] [place] [address] Rain Souza MD [address] [place] [address] [facility]Start: 08-27-2024 End: 81-27-1653Kybzdus encounter rorroptba59/19/2025 5:30 PM EST Office Visit [facility] [address] [place] [address] Mckayla Blas, SILVANO [address] [place] [address] [facility] FMStart: 08-27-2024 End: 602723-alpfmdwgzsudlg D3 [Mass/volume] in Serum or PlasmaVitamin D 25 hydroxy Lab Routine Vitamin deficiency Expected: 08/27/2024 (Approximate), Expires: 08/27/2025NOID HealthcareComment on above:Expected: 08/27/2024 (Approximate), Expires: 08/27/2025Start: 70-52-9798Hqtlctvzax A1c measurement Diabetes: Hemoglobin T7HSMYNPike County Memorial HospitalStart: 08-27-2024 End: 12-04-1998Kottpin function 2000 panel - Serum or PlasmaHepatic function panel Lab Routine Hyperlipidemia, unspecified ([facility]/HCC) Expected: 08/27/2024 (Approximate), Expires: 08/27/2025[facility] HealthcareComment on above:Expected: 08/27/2024 (Approximate), Expires: 08/27/2025Start: 08-27-2024 End: 83-42-0066Vsmki 1996 panel - Serum or PlasmaLipid panel Lab Routine Mixed hyperlipidemia ([facility]/HCC) Expected: 08/27/2024 (Approximate), Expires:08/27/2025 [facility] Healthcare Work Phone: Comment on above:Expected: 08/27/2024 (Approximate), Expires: 08/27/2025Start: 08-27-2024 End: 41-71-6211Glyubffqsrpa/Creatinine panel in random UrineMicroalbumin / creatinine, urine ratio Lab Routine Primary hypertension ([facility]) Type 2 diabetes mellitus with complication, with long-term current use of insulin ([facility]) Expected: 08/27/2024 (Approximate), Expires: 08/27/2025[facility] Healthcare Comment on above:Expected: 08/27/2024 (Approximate), Expires: 08/27/2025Start: 08-27-2024 End: 02-68-5091Kaqyg [Mass/volume] in Serum or PlasmaUric acid Lab Routine Gout, unspecified cause, unspecified chronicity, unspecified site Expected: (Approximate), Expires: 08/27/2025[facility] HealthcareComment on above: Expected: 08/27/2024 (Approximate), Expires: 08/27/2025Start: 08-27-2024 End: 45-37-0113Aslwosmpvc complete panel - UrineUrinalysis with reflex microscopic (clean catch) Lab Routine Primary hypertension ([facility]) Type 2 d iabetes mellitus with complication, with long-term current use of insulin ([facility]) Tobacco user Gout, unspecified cause, unspecified chronicity, unspecified site Expected: 08/27/2024 (Approximate), Expires: 08/27/2025[facility] HealthcareComment on above:Expected: 08/27/2024 (Approximate), Expires: 08/27/2025Start: 08-26-2024 End: 33-21-1027Qgqqgzf encounter ewpcjtxrk32/18/2025 10:30 AM EST Office Visit [facility] [address] [place] [address] Rain Souza MD [address] [place] [address] [facility]YStart: 07-14-2024 End: 19-68-0215Qevdlps encounter /06/2025 6:30 PM EST Office Visit [facility] [address] [place] [address] Mckayla Blas NP [address] [place] [address] [facility] FMStart: 07-14-2024 End: 27-32-0257Skiaiah encounter iyxfghglp53/06/2025 10:10 AM EST Office Visit [facility] [address] [place] [address] Rain Souza MD [address] [place] [address] [facility] ENDOCRINOLOGYStart: 18-84-4039Iisxcyapf vaccinationInfluenza Vaccine (#1)[facility] HealthcareComment on above:Postponed from 03/09/2024 (Patient Refused)Start: 05-27-2024 End: 86-10-6306Zslmmvi encounter aqnexekdp36/19/2024 9:50 AM EST Office Visit [facility] [address] [place] [phone] Rain Souza MD [address] [place] [address] [facility] ENDO[facility]YStart: 37-31-8798Iyghevosik A1c measurementDiabetes: Hemoglobin Q6WMNNC HealthcareStart: 05-15-2024 End: 28-69-6428Lyejs ycuhpacmndw70/07/2024 Abstract [facility] [address] [place] [address] Rain Souza MD [address] [place] [address] [facility]IN[facility]YStart: 05-15-2024 End: 97-30-3118Rznhlsw encounter zaluhjfnk62/07/2024 11:20 AM EST Office Visit [facility] [address] [place] [address] Rain Souza MD [address] [place] [address] [facility] ENDOCRINOLOGYStart: 04-17-2024 End: 80-40-3490Klryvuw encounter jgkbzapxn40/10/2024 3:40 PM EDT Office Visit [facility] [address] [place] [address] Mckayla Blas, LASER ENGINEER [address] [place] [address] [facility] FMStart: 04-14-2024 End: 29-47-0390Dcqvirs encounter qamoroxbw12/07/2024 11:00 AM EDT Office Visit [facility] [address] [place] [address] Mckayla Blas, LASER ENGINEER [address] [place] [address] ArrivedNOMS CW FMComment on above:ArrivedStart: 03-09-2024 Influenza vaccinationInfluenza Vaccine (#1)[facility] HealthcareStart: 02-19-2024 Hemoglobin A1c measurementDiabetes: Hemoglobin H7PROJK HealthcareStart: 16-29-7783Gdibc screening for proteinDiabetes: Urine Protein ScreeningNOID HealthcareStart: 23-71-8529Zqzjjoonx for malignant neoplasm of breastMammogram [facility] HealthcareStart: 10-15-2023 End: 18-85-6597Eqoyqdx encounter /08/2024 4:30 PM EDT Office Visit [facility] [address] [place] [address] Mckayla Blas, LASER ENGINEER [address] [place] [address] [facility] FMStart: 61-54-3343Fosmjrxcjm A1c measurement Diabetes: Hemoglobin H3JVADY HealthcareStart: 03-65-6344Sotyrjcl screening Diabetes: Retinopathy ScreeningNOID HealthcareStart: 46-03-6551Kkmqoyxjg vaccinationFlu vaccine (Season Ended)[facility]: 10-07-2018 Screening for malignant neoplasm of cervixNOID HealthcareStart: 11-83-7141Mbccp panelLipid screenCoshocton Regional Medical Center: 59-66-5390Dwylmljbs for malignant neoplasm of cervixHPV/CotestNOID HealthcareStart: 45-25-9473Aazfgxeqi for malignant neoplasm of cervixCervical cancer [facility]: 74-24-5904XKwC/Tdap/Td vaccine (1 - Tdap)DTaP/Tdap/Td vaccine (1 - Tdap)[facility]: 68-19-5866HOL screeningHIV [facility]: 02-17-1971Medicare Annual Wellness (AWV)Medicare Annual Wellness (AWV)[facility] HealthcareStart: 25-85-8016Kglfnnexu for malignant neoplasm of colonNOMS HealthcareBLOOD CULTURE 1BLOOD CULTURE 1 Lab Routine 12/04/2024 4:44 PM EDTNOMS HealthcareBLOOD CULTURE 2BLOOD CULTURE 2 Lab Routine 12/04/2024 5:28 PM EDTNOID Healthcare Immunizations Immunization DateImmunizationNotesCare CixvmaaxSnjoqbii22-99-9403mefoiexib, injectable, quadrivalent, contains preservativeMckayla Blas LASER ENGINEER Work Phone: [facility]OP[facility] HospitalPqjxaooklf37-34-6037miuvettir virus vaccine, unspecified formulationRain Souza MD Work Phone: [facility]01-11-2022SARS-CoV-2 (COVID-19) mRNA BNT-162b2 vaxJENNIFER SILVIA [facility]04-22-2021SARS-CoV-2 (COVID-19) mRNA BNT-162b2 vaxJENNIFER SILVIA [facility]04-02-2021SARS-CoV-2 (COVID-19) mRNA BNT-162b2 vaxJENNIFER SILVIA [facility]10-09-2017influenza virus vaccine, H5N1, A/ (national stockpile)Mckayla Blas LASER ENGINEER Work Phone: [facility] HospitalFzdqplyfsj53-34-9761ckffhixef virus vaccine, unspecified formulationRain Souza MD Work Phone: NOP[facility] HospitalZpckdyqjvy22-29-1851kdpovuwtu, unspecified formulationPataylor regional hospitalk ARAUZ [facility] [place] [address]100-09-2017pneumococcal polysaccharide vaccine, 23 valMunira Souza MD Work Phone: [facility] Cixsyhrehw83-67-3262bkilcvqpd virus vaccine, H5N1, A/ (national stockpile)Mckayla Blas LASER ENGINEER Work Phone: noPike [facility] Memorial HospitalAptchwpxxw38-20-5697ssiuabibp virus vaccine, unspecified formulationRain Souza MD Work Phone: noPike County Memorial HospitalQkyyqnubdd78-99-7328cvfatbbmb, unspecified formulationPatrick ARAUZ [facility]10-25-2013influenza virus vaccine, whole virusRain Souza MD Work Phone: NOP[facility] HospitalZopdngukwt71-53-4301ivqwuelwj, injectable, quadrivalent, contains preservativeLisa Aichholz LASER ENGINEER Work Phone: [facility] HospitalAjiusiishn24-51-9535qtevdkbmb, wholePatrick ARAUZ [facility]07-24-1998measles, mumps and rubella virus vaccineRain Souza MD Work Phone: [facility] Healthcare Payers DatePayer CategoryPayerPolicy [id number] 2024Medicare (Managed Care)[id number] Health [id number]cw [id number] 2019[place]icaid[place] [id number] 2018-Present [phone] [address] [place] [address]Medicaid [id number] 2013Medicare [id number] 2.16.840.1.449168.3.57[id number] 2.16.840.1.718479.3.57[id number] 2.16.840.1.009367.3.57[id number] 2..840.1.760128.3.579.2.21580-70-6552Bmyhyux4428460 2..840.1.192209.3.579.2.76554-88-4120Zmoigzy0118738 2.840.1.879066.3.579.2.50837-18-8896Mxvhcgu9934135 2.840.1.140410.3.579.2.77364-56-8381Stvashn5602896 2.840.1.081986.3.579.2.78974-01-6368Btysuwj8773259 2.0.1.548469.3.579.2.50791-38-2257Vvqxose3956594 2.840.1.954043.3.579.2.22557-49-7868Jsaabjc9437870 2.840.1.577039.3.57[id number] 2.840.1.636038.3.579.2.57287-27-1234Urgeelz9557708 2.840.1.396251.3.579.2.67170-78-3632Mvigohj4004443 2.840.1.924051.3.579.2.27595-91-6579Otngrab8773203 2.840.1.303728.3.579.2.79767-27-2078Uvxlicv8009564 2.840.1.186722.3.579.2.24793-71-5965Mhzkhkq5455890 2.840.1.363182.3.579.2.98425-82-5946Gtdaaoa4025832 2.16.840.1.502528.3.579.2.47275-15-3746Dcxgfzu4308867 2.0.1.587353.3.579.2.80846-93-7469Zofdbok0501437 2.840.1.114132.3.579.2.53677-55-7560Owzsrhd3338497 2.840.1.180266.3.579.2.41033-88-0977Swiaiiy6068059 2.0.1.799070.3.579.2.41130-00-6222Bbhqhep9631716 2..1.601112.3.579.2.32473-60-2868Irvfudt78784067 2..1.847833.3.579.2.927133-82-1786Calubpb54556296 2..1.420794.3.579.2.176957-08-1084Kswmsee52071922 2..1.298556.3.579.2.090999-94-2597Pnrtadf2492233 2..1.430642.3.579.2.946439-69-8437Kfqclxa1992496 2..1.192325.3.579.2.938185-67-9511Xjqwubk8098529 2..1.254147.3.579.2.933823-38-1458Vbwmvdz9400678 2..1.173497.3.579.2.785101-16-0794Mhohxhi0213156 2.0.1.782904.3.579.2.670330-87-5020Mcpzhtc9316673 2.0.1.032855.3.579.2.514360-50-4159Gktfeat70551203 2.16.840.1.016166.3.579.2.53293-96-2414Gqhgioj60873352 2.16.840.1.466246.3.579.2.68238-74-3340Vfutlts294061975 2.16.840.1.576350.3.57[id number] 2.16.840.1.630933.3.579.2.72889-43-5310Gxvgpzk903755633 2.16.840.1.725139.3.579.2.54257-05-8071Iyyflel232267157 2.16.840.1.146123.3.579.2.23913-40-8679Ewrycyk711310310 2.840.1.961949.3.579.2.84239-37-2834Qccbico798223614 2.16.840.1.512131.3.579.2.98324-76-0036Qqugqca691228434 2.16.840.1.249844.3.579.2.63351-77-3560Tdemtwr043333929 2.16.840.1.304671.3.579.2.76053-34-1634Qrxvquf738085806 2.840.1.912273.3.579.2.45930-81-3909Fjtszzy055845283 2.16.840.1.831905.3.579.2.88[id number] 2.16840.1.474125.3.579.2.196 [id number] 1960Private Health Xkczghoqo06[id number] 2.16.840.1.761052.19 [id number] [id number] Medical [id number]m Auto/[id number] 925v3859-7h1g-1gt7-1641-z69w7d4ark72 Social History DateTypeDetailFacilityStart: 02-17-2014 End: 61-36-9080Taxjzdm smoking status NHISCurrent every day smokerCos[facility]cton [facility]: 69-36-4380Jjtiibn of tobacco useCigarette SmokerCoshocton [facility]: 02-17-2014 End: 06-84-0940Lprvrgucch smoked current (pack per day) - ReportedCoshocton Regional Medical Center: 67-29-4264Awuxcoo intakeCurrent drinker of alcohol (finding)[facility]: 68-16-6643Rnsiwqy CommentRareMMemorial Health System [facility]etta [facility]: 15-08-3235Cwl Assigned At BirthNot on fileGoreville, KYExposure to SARS-CoV-2 (event)Unable to assessBlanchard Valley Health Systemart: 05-20-7277Lhirllu smoking statusSmoker (finding)[facility] start: 07-10-2023 End: 83-30-4807Grg Assigned At BirthFemaleExecutive [facility]rology [facility] start: 11-15-2022 End: 26-90-9303Kvyhfsb smoking statusHeavy tobacco smoker (finding)[facility] Hospitaltart: 07-10-2023 End: 99-41-0888Wdrruqo use and exposureSmokeless tobacco non-userNOMS Healthcare Start: 07-10-2023 End: 31-66-4749Hlwcdbp intakeLifetime non-drinker (finding)[facility] HealthcareWithin the last year, [...] drinks on 1 occasion?Less than monthlyNOMS HealthcareStart: 45-81-6668Eqs hard is it for you to pay [...] or pharmacy [SILS]RarelyNOMS HealthcareSexFemale (finding)[facility] Start: 53-37-9115Uwk [facility]N [facility] CenterNEGATED: Highlighted [facility] Medical Equipment Procedure CodeEquipment CodeEquipment Original TextEquipment IdentifierDates [id number]: 09-62-6860RBI TO TEST BLOOD SUGAR 4 TIMES [id number]: 07-07-2024 Functional Status YauePznvxwxvvqXcnxkoCbhaxvjc63-08-0590Uevlusv Health Questionnaire 2 item (PHQ- 2) [Reported][facility] HospitalUxxfxyuqfg69-82-7886Deicfus falling or staying asleep, or sleeping too muchNot at all 01/26/2025 4:13 PM EDT Mychart, Generic Not at all [facility] HospitalYwavrgzktp13-65-2967Nynxyxk tired or having little energyNot at all 01/26/2025 4:13 PM EDT Mychart, Generic Not at [facility]leyYiedcpnuyh89-91-1082Ioik appetite or overeatingNot at all 01/26/2025 4:13 PM EDT Mychart, Generic Not at [facility] Sew[facility]leyTrzhswybkk87-64-9156Zvleqyw bad about yourself-or that you are a failure or have let yourself or your family downNot at all 01/26/2025 4:13 PM EDT Mychart, Generic Not at [facility] SewickleyYguidsicxl15-85-1096Mjmtwip concentrating on things, such as reading the newspaper or watching televisionNot at all 01/26/2025 4:13 PM EDT Mychart, Generic Not at [facility] SewickleyHguqkjfnok74-58-3318 Moving or speaking so slowly that other people could have noticed. Or the opposite - being so fidgety or restless that you have been moving around a lot more than usualNot at all 01/26/2025 4:13 PM EDT Mychart, Generic Not at [facility] SewickleyMarmvlzaff88-80-1311Fhrezgoe that you would be better off , or of hurting yourself in some wayNot at all 01/26/2025 4:13 PM EDT Mychart, Generic Not at [facility] SewickleyFrmwwdcmuk60-96-5917Pcfpe score [AUDIT-C]1 08/26/2024 6:13 PM EST Mychart, GenericSoutheast Missouri HospitalDsuhhmfcmy25-17-6263Yms often do you have a drink containing alcohol?Monthly or less 08/26/2024 6:13 PM EST Mychart, Generic Monthly or lessSoutheast Missouri HospitalFepqnvfjvq90-89-1395Tqu many standard drinks containing alcohol do you have on a typical day?1 or 2 08/26/2024 6:13 PM EST Mychart, Generic 1 or 2NOMS Bphnfbkzvu25-62-5977Cbq often do you have 6 or more drinks on 1 occasion?Never 08/26/2024 6:13 PM EST Mychart, Generic [facility] 01-74-0074Waoimtkvfu StatusN/AExec[facility] of [facility]07-11-2024How difficult have these problems made it for you to do your work, take care of things at home, or get along with other people?Not difficult at all 01/17/2024 10:08 AM Marilyn Dunbar MA Not difficult at allSoutheast Missouri HospitalGtazdkzpxh81-73-2753Lgfdxjj Health Questionnaire 2 item (PHQ-2) [Reported][facility] HospitalRifdzhkhbn74-24-5788Isweulx Health Questionnaire 2 item (PHQ-2) [Reported][facility] HospitalPlsexjxatp20-60-9377Dfyhekutwr StatusN/AExec[facility]08-01-2022Functional StatusN/A[facility] Clinical Notes 01-19-2022 to 04-06-2025 Note Date & IcsyHowuRkndoksv85-75-5683 Evaluation note* Diagnosis Onset Date Resolution Status [...] use ofacuteOctober 2024 5:50pmVenous insufficiencyacuteOctober 2024 5:50pm [facility] Work Phone: 1(742) 846-498407-30-2025 NotePlease let her know her ECHO showed some improvement in the left side wall thickness, it was severely enlarged, now it is moderate. Important for good BP control to continue to improve this. Everything else looks good. Follow-up as planned in 6 months. Thanks![facility]07-24-2025 History of Present illness Narrative* Rain Souza [...] 96, on lantus 58 units bid, lispro 7-29-71uzyad plus ISS, Trulicity 4.5 mg weekly. meter give us error during download IM 03/2022 follow up visit on 03/14/2022, A1c in the office 9.4, bg 142, on lantus 58 units bid, lispro 7-43-57iyheg plus ISS, Trulicity 4.5 mg weekly. lab [...] 25 mg, Oral, 2 times daily HYDROcodone-acetaminophen ([place]) 5-325 MG tablet 1 tablet, 3 times [...] 09/17/2023 Angiomyolipoma Anxiety and depression 07/10/2023 Asthma ([facility]) 07/10/2023 Body mass index (BMI) 50.0-59.9, adult ([facility]) Cellulitis of left lower extremity Cervical cancer ([facility]) 09/17/2023 Chronic pain of both knees 09/17/2023 COPD (chronic obstructive pulmonary disease) ([facility]) 07/10/2023 COPD exacerbation ([facility]) 09/17/2023 Decreased functional mobility 09/17/2023 Diabetic neuropathy ([facility]) 07/10/2023 Dietary counseling and surveillance Edema 07/10/2023 Elevated sed rate Elevated WBC count Essential (primary) hypertension GERD (gastroesophageal reflux disease) 09/17/2023 Hyperlipidemia 09/17/2023 Hypertension 07/10/2023 Insomnia 09/17/2023 FCI (current) use of insulin ([facility]) Lower extremity edema 09/17/2023 Mixed hyperlipidemia Morbid (severe) obesity due to excess calories ([facility]) Obstructive sleep apnea 07/10/2023 PAD (peripheral artery disease) 09/17/2023 Pancreatitis ([facility]) 09/17/2023 Pneumonia 09/17/2023 Proteinuria, unspecified Pulmonary hypertension ([facility]) 09/17/2023 Radiculopathy, lumbar region 09/17/2023 Tobacco [...] with long-term current use of insulin ([facility]) - POCT glycosylated hemoglobin (Hb A1C) docked [...] D deficiency Primary hypertension Insulin long-term use ([facility]) Hyperlipemia, mixed Microalbuminuria Class 3 severe obesity due to excess calories with serious comorbidity and body mass index (BMI) of50.0 to 59.9 in adult ([facility]) Diet and exercise reviewed with the patient Follow up in about 4 months (around 06/01/2025). documented in this encounterSoutheast Missouri HospitalMkarlibpyu53-14-4044 History of Present illness Narrative* Mckayla Blas NP - 01/26/2025 6:46 PM EDTAssociated Problem(s): Anxiety and depression Current meds: elavil, duloxtine, * Mckayla Blas NP - 01/26/2025 6:46 PM EDTAssociated Problem(s): Morbid (severe) obesity due to excess calories (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 * Mckayla Blas [...] 25 mg, Oral, 2 times daily HYDROcodone-acetaminophen ([place]) 5-325 MG tablet 1 tablet, 3 times [...] 09/17/2023 Angiomyolipoma Anxiety and depression 07/10/2023 Asthma ([facility]) 07/10/2023 Body mass index (BMI) 50.0-59.9, adult ([facility]) Cellulitis of left lower extremity Cervical cancer ([facility]) 09/17/2023 Chronic pain of both knees 09/17/2023 COPD (chronic obstructive pulmonary disease) ([facility]) 07/10/2023 COPD exacerbation ([facility]) 09/17/2023 Decreased functional mobility 09/17/2023 Diabetic neuropathy ([facility]) 07/10/2023 Dietary counseling and surveillance Edema 07/10/2023 Elevated sed rate Elevated WBC count Essential (primary) hypertension GERD (gastroesophageal reflux disease) 09/17/2023 Hyperlipidemia 09/17/2023 Hypertension 07/10/2023 Insomnia 09/17/2023 FCI (current) use of insulin ([facility]) Lower extremity edema 09/17/2023 Mixed hyperlipidemia Morbid (severe) obesity due to excess calories ([facility]) Obstructive sleep apnea 07/10/2023 PAD (peripheral artery disease) 09/17/2023 Pancreatitis ([facility]) 09/17/2023 Pneumonia 09/17/2023 Proteinuria, unspecified Pulmonary hypertension ([facility]) 09/17/2023 Radiculopathy, lumbar region 09/17/2023 Tobacco [...] is 7.4%!!! 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) Discussed with patient their BMI (actual, [...] EDTAssociated Problem(s): Pulmonary hypertension (HCC) Has seen [facility] Cardiology * Mckayla Blas NP - [...] on a yearly basis documented in this encounterSoutheast [place] [id number] Instructions* Patient Instructions* Mckayla Blas NP - 01/26/2025 6:00 PM EDT Please call the [facility] to schedule your mammogram: [phone] documented in this encounterSoutheast [place] [id number] NoteCardiovascular Medicine [facility] SUBJECTIVE Chief Complaint Patient presents with Congestive Heart Failure Hypertension Hyperlipidemia Mitzi Macias is a 54 y.o. female here for follow-up. PMHx: HFpEF, HTN, HLD, DM, longstanding heavy smoker, COPD, DANIEL, morbid obesity HPI 01/06/2025 Since last seen she was admitted to [facility] for AMS on 12/05/2024. She was treated [...] complication, with long-term current use of insulin ([facility] [facility] Unilateral primary osteoarthritis, right hip Vaginal yeast infection Venous insufficiency Bad odor of urine Critical limb ischemia of right lower extremity ([facility]/HCC) Hyperpigmentation of skin 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 2 diabetes mellitus ([facility]/HCC) Myelolipoma of adrenal gland Venous ulcer of right leg ([facility]/HCC) Chronic diastolic heart failure ([facility]/HCC) Antibiotic-induced yeast infection Cellulitis of left lower extremity Cigarette nicotine dependence without complication Fever Idiopathic chronic venous hypertension of both lower extremities with ulcer ([facility]) FCI current use of inhaled steroid Vitamin D deficiency, unspecified Vitamin deficiency Past Medical History: Diagnosis Date COPD (chronic obstructive pulmonary disease) ([facility]) Diabetes mellitus ([facility]) Hyperlipidemia Hypertension Sleep apnea Family History [...] , Rfl: ergocalciferol (Vitamin D-2) 1.25 MG (31848 Units) capsule, Take 1.25 mg by mouth., [...] and at bedtime., Disp: , Rfl: HYDROcodone-acetaminophen ([place]) 5-325 mg tablet, TAKE 1 TABLET BY MOUTH THREE TIMES A DAY NEEDED FOR PAIN MUST LAST 30 DAYS, Disp: , Rfl: insulin aspart (NovoLOG) 100 unit/mL (3 mL) injection pen, Novolog Flexpen U-100 Insulin aspart 100 unit/mL (3 mL) subcutaneous, Disp: , Rfl: insulin glargine (Lantus Solostar U-100 Insulin) 100 unit/mL (3 mL) injection pen (more content not included)...[facility]07-01-2025 NotePatient is here today for a 6 [...] and weight gain. Cardiovascular: Positive for leg swelling.[facility] 12-09-2024 History of Present illness Narrative* Mckayla [...] Mitzi Maicas is a 54 y.o. female presents with [...] bad light. She was ultimately taken to [facility] ER, no tox screen was done that [...] 25 mg, Oral, 2 times daily HYDROcodone-acetaminophen ([place]) 5-325 MG tablet 1 tablet, 3 times [...] CT Albuminuria 09/17/2023 Angiomyolipoma Anxiety and depression ([facility]) 07/10/2023 Asthma 07/10/2023 Body mass index (BMI) 50.0-59.9, adult ([facility]) Cellulitis of left lower extremity Cervical cancer ([facility]) 09/17/2023 Chronic pain of both knees 09/17/2023 COPD (chronic obstructive pulmonary disease) ([facility]) 07/10/2023 COPD exacerbation ([facility]) 09/17/2023 Decreased functional mobility 09/17/2023 Diabetic neuropathy ([facility]) 07/10/2023 Dietary counseling and surveillance Edema 07/10/2023 Elevated sed rate Elevated WBC count Essential (primary) hypertension ([facility]) GERD (gastroesophageal reflux disease) 09/17/2023 Hyperlipidemia ([facility]) 09/17/2023 Hypertension ([facility]) 07/10/2023 Insomnia 09/17/2023 FCI (current) use of insulin ([facility]) Lower extremity edema 09/17/2023 Mixed hyperlipidemia ([facility]) Morbid (severe) obesity due to excess calories ([facility]) Obstructive sleep apnea 07/10/2023 PAD (peripheral artery disease) ([facility]) 09/17/2023 Pancreatitis 09/17/2023 Pneumonia 09/17/2023 Proteinuria, unspecified Pulmonary hypertension ([facility]) 09/17/2023 Radiculopathy, lumbar region 09/17/2023 Tobacco user 09/17/2023 Type 2 diabetes mellitus with complication, with long-term current use of insulin ([facility]) 07/10/2023 Unilateral primary osteoarthritis, [...] Problem List Items Addressed This Visit Hypertension ([facility]) Please check blood pressure daily and record DASH diet Limit caffeine Take medication as directed Contact office if chest pain, pressure, dizziness, shortness of breath, swelling legs Recommend slow position changes Current meds: hydralazine, lisinopril, Type 2 diabetes mellitus with complication, with long-term current use of insulin ([facility]) Check blood sugars daily, notify if [...] secondary to her steroids Anxiety and depression ([facility]) Current meds: elavil, duloxtine, COPD exacerbation ([facility]) Recent ER visit for unresponsiveness , found to have fever and elevated WBC Sent home with steroids and atb Breathing is better and she feels back to her normal baseline Does have home O2, she is not wearing this today Pulmonary hypertension (CMS/HCC) Has seen [facility] Cardiology Morbid (severe) obesity due to excess calories ([facility]) Discussed with patient their BMI (actual, [...] 7:24 AM EDTAssociated Problem(s): Anxiety and depression ([facility]) Current meds: elavil, duloxtine, * Mckayla Blas NP - 12/09/2024 7:24 AM EDTAssociated Problem(s): Type 2 diabetes mellitus with complication, with long-term current use of insulin ([facility]) Check blood sugars daily, notify if [...] EDTAssociated Problem(s): Pulmonary hypertension (CMS/HCC) Has seen [facility] Cardiology * Mckayla Blas NP - [...] not wearing this today documented in this encounterSoutheast Missouri [id number] Instructions* Patient Instructions* Mckayla Blas NP - 12/09/2024 10:00 AM EDT Keep appt with wound care today Keep fu with me, sooner if needed documented in this encounterSoutheast Missouri [id number] History of Present illness Narrative* Mckayla Blas [...] PM EDTAssociated Problem(s): PAD (peripheral artery disease) ([facility]) Asa, statin Quit smoking BP and [...] 25 mg, Oral, 2 times daily HYDROcodone-acetaminophen ([place]) 5-325 MG tablet 1 tablet, 3 times [...] CT Albuminuria 09/17/2023 Angiomyolipoma Anxiety and depression ([facility]) 07/10/2023 Asthma 07/10/2023 Body mass index (BMI) 50.0-59.9, adult ([facility]) Cellulitis of left lower extremity Cervical cancer ([facility]) 09/17/2023 Chronic pain of both knees 09/17/2023 COPD (chronic obstructive pulmonary disease) ([facility]) 07/10/2023 COPD exacerbation ([facility]) 09/17/2023 Decreased functional mobility 09/17/2023 Diabetic neuropathy ([facility]) 07/10/2023 Dietary counseling and surveillance Edema 07/10/2023 Elevated sed rate Elevated WBC count Essential (primary) hypertension ([facility]) GERD (gastroesophageal reflux disease) 09/17/2023 Hyperlipidemia ([facility]) 09/17/2023 Hypertension ([facility]) 07/10/2023 Insomnia 09/17/2023 FCI (current) use of insulin ([facility]) Lower extremity edema 09/17/2023 Mixed hyperlipidemia ([facility]) Morbid (severe) obesity due to excess calories ([facility]) Obstructive sleep apnea 07/10/2023 PAD (peripheral artery disease) ([facility]) 09/17/2023 Pancreatitis 09/17/2023 Pneumonia 09/17/2023 Proteinuria, unspecified Pulmonary hypertension ([facility]) 09/17/2023 Radiculopathy, lumbar region 09/17/2023 Tobacco user 09/17/2023 Type 2 diabetes mellitus with complication, with long-term current use of insulin ([facility]) 07/10/2023 Unilateral primary osteoarthritis, [...] List Items Addressed This Visit Diabetic neuropathy ([facility]) - Primary Continue with cintia hudson mgmt is prescribing OARRS reviewed Fu in 3 months Goal: tighter glucose control, this has been improving, latest A1c is 7.4%!!! Hypertension ([facility]) Please check blood pressure daily and record DASH diet Limit caffeine Take medication as directed Contact office if chest pain, pressure, dizziness, shortness of breath, swelling legs Recommend slow position changes Current meds: hydralazine, lisinopril, Relevant Medications hydrALAZINE (Apresoline) 25 MG tablet lisinopril 20 MG tablet Type 2 diabetes mellitus with complication, with long-term current use of insulin ([facility]) Check blood sugars daily, notify if [...] 81 MG chewable tablet Anxiety and depression ([facility]/HCC) Current meds: elavil, duloxtine, Relevant Medications DULoxetine [...] (severe) obesity due to excess calories (CMS/[facility]) Discussed with patient their BMI (actual, [...] mounjaro for DM Chronic diastolic heart failure ([facility]/HCC) Current meds; asa, farxiga, lasix, hydralazine, lisinopril, Follows with cardilogy Reviewed 08/02 notes Cigarette nicotine dependence without complication Is currently using chantix, and is doing well, less desire, smoking less Vitamin D deficiency, unspecified Relevant Medications ergocalciferol (Vitamin D2) 1.25 MG (33158 UT) capsule Gastro-esophageal reflux disease without esophagitis [...] latest A1c is 7.4%!!! documented in this [facility]04-21-2025 Instructions* Patient Instructions* Mckayla Blas NP - 10/27/2024 2:00 PM EDT No dose changes in meds You will be due for mammogram I will send order to [facility], they should call you to schedule If no call, please call [phone] ext [phone] documented in this encounterSoutheast Missouri [id number] History of Present illness Narrative* Rain Souza [...] 96, on lantus 58 units bid, lispro [id number] plus ISS, Trulicity 4.5 mg weekly. meter give us error during download IM 03/2022 follow up visit on 03/14/2022, A1c in the office 9.4, bg 142, on lantus 58 units bid, lispro [id number] plus ISS, Trulicity 4.5 mg weekly. lab [...] or chew. ergocalciferol (Vitamin D2) 1.25 MG (25088 UT) capsule TAKE 1 CAPSULE BY MOUTH [...] 25 mg, Oral, 2 times daily HYDROcodone-acetaminophen ([place]) 5-325 MG tablet 1 tablet, 3 times [...] CT Albuminuria 09/17/2023 Angiomyolipoma Anxiety and depression ([facility]) 07/10/2023 Asthma ([facility]) 07/10/2023 Body mass index (BMI) 50.0-59.9, adult ([facility]) Cellulitis of left lower extremity Cervical cancer ([facility]) 09/17/2023 Chronic pain of both knees 09/17/2023 COPD (chronic obstructive pulmonary disease) [facility] 07/10/2023 COPD exacerbation ([facility]) 09/17/2023 Decreased functional mobility 09/17/2023 Diabetic neuropathy ([facility]) 07/10/2023 Dietary counseling and surveillance Edema 07/10/2023 Elevated sed rate Elevated WBC count Essential (primary) hypertension ([facility]) GERD (gastroesophageal reflux disease) 09/17/2023 Hyperlipidemia ([facility]) 09/17/2023 Hypertension ([facility]) 07/10/2023 Insomnia 09/17/2023 FCI (current) use of insulin ([facility]) Lower extremity edema 09/17/2023 Mixed hyperlipidemia ([facility]) Morbid (severe) obesity due to excess calories ([facility]) Obstructive sleep apnea 07/10/2023 PAD (peripheral artery disease) ([facility]) 09/17/2023 Pancreatitis 09/17/2023 Pneumonia 09/17/2023 Proteinuria, unspecified Pulmonary hypertension ([facility]) 09/17/2023 Radiculopathy, lumbar region 09/17/2023 Tobacco user 09/17/2023 Type 2 diabetes mellitus with complication, with long-term current use of insulin ([facility]) 07/10/2023 Unilateral primary osteoarthritis, [...] hyperglycemia, with long-term current use of insulin ([facility]) - POCT glucose manually resulted - [...] 4 months (around 02/07/2025). documented in this encounterSoutheast Missouri [id number] History of Present illness Narrative* Mckayla Blas [...] or chew. ergocalciferol (Vitamin D2) 1.25 MG (94052 UT) capsule TAKE 1 CAPSULE BY MOUTH [...] 25 mg, Oral, 2 times daily HYDROcodone-acetaminophen ([place]) 5-325 MG tablet 1 tablet, 3 times [...] CT Albuminuria 09/17/2023 Angiomyolipoma Anxiety and depression ([facility]) 07/10/2023 Asthma ([facility]) 07/10/2023 Body mass index (BMI) 50.0-59.9, adult ([facility]) Cellulitis of left lower extremity Cervical cancer ([facility]) 09/17/2023 Chronic pain of both knees 09/17/2023 COPD (chronic obstructive pulmonary disease) ([facility]) 07/10/2023 COPD exacerbation ([facility]) 09/17/2023 Decreased functional mobility 09/17/2023 Diabetic neuropathy ([facility]) 07/10/2023 Dietary counseling and surveillance Edema 07/10/2023 Elevated sed rate Elevated WBC count Essential (primary) hypertension ([facility]) GERD (gastroesophageal reflux disease) 09/17/2023 Hyperlipidemia ([facility]) 09/17/2023 Hypertension ([facility]) 07/10/2023 Insomnia 09/17/2023 FCI (current) use of insulin ([facility]) Lower extremity edema 09/17/2023 Mixed hyperlipidemia ([facility]) Morbid (severe) obesity due to excess calories ([facility]) Obstructive sleep apnea 07/10/2023 PAD (peripheral artery disease) ([facility]) 09/17/2023 Pancreatitis 09/17/2023 Pneumonia 09/17/2023 Proteinuria, unspecified Pulmonary hypertension ([facility]) 09/17/2023 Radiculopathy, lumbar region 09/17/2023 Tobacco user 09/17/2023 Type 2 diabetes mellitus with complication, with long-term current use of insulin ([facility]) 07/10/2023 Unilateral primary osteoarthritis, right hip [...] List Items Addressed This Visit Diabetic neuropathy ([facility]) Continue with cintia hudson is prescribing OARRS reviewed Fu in 3 months Goal: tighter glucose control Hypertension ([facility]) Please check blood pressure daily and [...] complication, with long-term current use of insulin ([facility]) Check blood sugars daily, notify if [...] Uric acid Venous ulcer of right leg (CMS/[facility]) Continue with wound for treatment Had recent [...] Morbid (severe) obesity due to excess calories ([facility]) Discussed with patient their BMI (actual, [...] DM Body mass index (BMI) 50.0-59.9, adult (CMS/[facility]) Chronic diastolic heart failure (CMS/HCC) Current meds; [...] complication, with long-term current use of insulin ([facility]) Check blood sugars daily, notify if [...] Morbid (severe) obesity due to excess calories ([facility]) Discussed with patient their BMI (actual, [...] AM ESTAssociated Problem(s): Chronic diastolic heart failure ([facility]/HCC) Current meds; asa, farxiga, lasix, hydralazine, lisinopril, Follows with cardilogy Reviewed 08/02 notes * Mckayla Blas NP - 08/27/2024 7:31 AM ESTAssociated Problem(s): COPD (chronic obstructive pulmonary disease) ([facility]) Follows with verena Needs smoking cessation Current meds: duoneb, albuterol, daliresp, * Mckayla Blas NP - 08/27/2024 7:30 AM ESTAssociated Problem(s): Asthma (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) Diabetes mellitus ([facility]) Hyperlipidemia Hypertension Sleep apnea Past Surgical [...] , Rfl: ergocalciferol (Vitamin D-2) 1.25 MG (42841 Units) capsule, Take 1.25 mg by mouth., [...] and at bedtime., Disp: , Rfl: HYDROcodone-acetaminophen ([place]) 5-325 mg tablet, TAKE 1 TABLET BY [...] SUBCUTANEOUSLY TWICE DAILY, Disp: (more content not included)...[facility]01-06-2025 History of Present illness Narrative* Mckayla Blas [...] or chew. ergocalciferol (Vitamin D2) 1.25 MG (93526 UT) capsule TAKE 1 CAPSULE BY MOUTH ONE TIME PER WEEK furosemide (LASIX) 40 mg, Oral, Daily furosemide (LASIX) 20 mg, Oral, Daily PRN, Take in the afternoon as needed hydrALAZINE (APRESOLINE) 25 mg, Oral, 2 times daily HYDROcodone-acetaminophen ([place]) 5-325 MG tablet 1 tablet, 3 times [...] CT Albuminuria 09/17/2023 Angiomyolipoma Anxiety and depression ([facility]) 07/10/2023 Asthma ([facility]) 07/10/2023 Body mass index (BMI) 50.0-59.9, adult ([facility]) Cellulitis of left lower extremity Cervical cancer ([facility]) 09/17/2023 Chronic pain of both knees 09/17/2023 COPD (chronic obstructive pulmonary disease) ([facility]) 07/10/2023 COPD exacerbation ([facility]) 09/17/2023 Decreased functional mobility 09/17/2023 Diabetic neuropathy ([facility]) 07/10/2023 Dietary counseling and surveillance Edema 07/10/2023 Elevated sed rate Elevated WBC count Essential (primary) hypertension ([facility]) GERD (gastroesophageal reflux disease) 09/17/2023 Hyperlipidemia ([facility]) 09/17/2023 Hypertension ([facility]) 07/10/2023 Insomnia 09/17/2023 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 ([facility]) Lower extremity edema 09/17/2023 Mixed hyperlipidemia ([facility]) Morbid (severe) obesity due to excess calories ([facility]) Obstructive sleep apnea 07/10/2023 PAD (peripheral artery disease) ([facility]) 09/17/2023 Pancreatitis 09/17/2023 Pneumonia 09/17/2023 Proteinuria, unspecified Pulmonary hypertension ([facility]) 09/17/2023 Radiculopathy, lumbar region 09/17/2023 Tobacco user 09/17/2023 Type 2 diabetes mellitus with complication, with long-term current use of insulin ([facility]) 07/10/2023 Unilateral primary osteoarthritis, right hip [...] List Items Addressed This Visit Diabetic neuropathy ([facility]) Continue with tristan [facility] reviewed Fu in 3 months COPD (chronic obstructive pulmonary disease) ([facility]) Stable at this time, no changes in meds Encouraged smoking cessation Cont with dr Yañez Hypertension ([facility]) - Primary Please check blood pressure daily and record DASH diet Limit caffeine Take medication as directed Contact office if chest pain, pressure, dizziness, shortness of breath, swelling legs Recommend slow position changes Current meds: hydralazine, lisinopril, Type 2 diabetes mellitus with complication, with long-term current use of insulin ([facility]) Check blood sugars daily, notify if [...] Critical limb ischemia of right lower extremity ([facility]/HCC) Saw vascular, does have narrowing in arteries in legs, and thus the wounds not healing At this point they strongly urge to quit smoking or risk limb amputation Cont asa and statin Also good blood pressure and sugar control Venous ulcer of right leg ([facility]/HCC) Encounter for smoking cessation counseling Relevant Medications [...] complication, with long-term current use of insulin ([facility]) Check blood sugars daily, notify if [...] Fu in 3 months documented in this encounterSoutheast Missouri [id number] Hospital Discharge instructions Patient Education 06/11/2024 10:44:08 [...] require a prescription. You can also purchase lotw-fmt-vmcpvkv medicines. Medicines may have nicotine in them [...] and encouragement. Call telephone quitlines, such as 2-647-PMEA-NOW, reach out to support groups, or work [...] provider. Document Revised: 06/16/2022 Document Reviewed: 06/16/2022 [employer] Patient Education 2023 [employer]. 06/11/2024 10:39:22 Dietary Guidelines to Help Prevent [...] include: ?8 oz (237 mL) of milk, qtyeebo-vqidaupyinsc-cjxgu milk, and calcium- fortifiedfruit juice. Calcium-fortified means [...] ?Spinach (cooked), rhubarb, beets, sweet potatoes, and Vincentian chard. ?Peanuts. ?Potato chips, swiss fries, and baked potatoes with skin on. ?Nuts and nut products. ?Chocolate. If you regularly take a diuretic medicine, make sure to eat at least 1 or 2 servings of fruits or vegetables that are high in potassium each day. These include: ?Avocado. ?Banana. ?Nelson, prune, carrot, or tomato juice. ?Baked potato. [...] magnesium, fish oil, or vitamin B6. Take iawo-nly-jflktmi and prescription medicines only as told by [...] Casseroles. Pizza. Lasagna. Frozen meals. Potato chips. Spanish fries. The items listed above may not [...] provider. Document Revised: 10/05/2022 Document Reviewed: 10/05/2022 [employer] Patient Education 2023 [employer]. Follow Up Care 05/06/2024 08:24:56 With:REGLA PHIPPS, Elbert Joya, URL Address: [facility] [address] , [place] [address]- When: Unknown [facility] 12-04-2024 NotePatient Education Nephrology Dietary Guidelines to [...] ? 8 oz (237 mL) of milk, ejybado-hnccstlospli-vwhyd milk, and calcium- fortifiedfruit juice. Calcium-fortified means [...] Spinach (cooked), rhubarb, beets, sweet potatoes, and Vincentian chard. ? Peanuts. ? Potato chips, swiss fries, and baked potatoes with skin on. ? Nuts and nut products. ? Chocolate. ??? If you regularly take a diuretic medicine, make sure to eat at least 1 or 2 servings of fruits or vegetables that are high in potassium each day. These include: ? Avocado. ? Banana. ? Nelson, prune, carrot, or tomato juice. ? Baked [...] fish oil, or vitamin B6. ??? Take qsxy-udk-jpatfkh and prescription medicines only as told by your health (more content not included)...[facility]11-19-2024 History of Present illness Narrative* Rain Souza [...] 96, on lantus 58 units bid, lispro [id number] plus ISS, Trulicity 4.5 mg weekly. meter give us error during download IM 03/2022 follow up visit on 03/14/2022, A1c in the office 9.4, bg 142, on lantus 58 units bid, lispro [id number] plus ISS, Trulicity 4.5 mg weekly. lab [...] or chew. ergocalciferol (Vitamin D2) 1.25 MG (53741 UT) capsule TAKE 1 CAPSULE BY MOUTH ONE TIME PER WEEK furosemide (LASIX) 20 mg, Oral, Daily PRN, Take in the afternoon as needed furosemide (LASIX) 40 mg, Oral, Daily Glucose Blood (ACCU-CHEK JAQUI PLUS ) 4 times daily hydrALAZINE (APRESOLINE) 25 mg, Oral, 2 times daily HYDROcodone-acetaminophen ([place]) 5-325 MG tablet 1 tablet, 3 times [...] 42 tablet [facility] ALLERGIES: No Known Allergies Past Medical History: Diagnosis Date Abnormal chest CT Albuminuria 09/17/2023 Angiomyolipoma Anxiety and depression ([facility]) 07/10/2023 Asthma ([facility]) 07/10/2023 Body mass index (BMI) 50.0-59.9, adult ([facility]) Cellulitis of left lower extremity Cervical cancer ([facility]) 09/17/2023 Chronic pain of both knees 09/17/2023 COPD (chronic obstructive pulmonary disease) ([facility]) 07/10/2023 COPD exacerbation ([facility]) 09/17/2023 Decreased functional mobility 09/17/2023 Diabetic neuropathy ([facility]) 07/10/2023 Dietary counseling and surveillance Edema 07/10/2023 Elevated sed rate Elevated WBC count GERD (gastroesophageal reflux disease) 09/17/2023 Hyperlipidemia ([facility]) 09/17/2023 Hypertension ([facility]) 07/10/2023 Insomnia 09/17/2023 FCI (current) use of insulin ([facility]) Lower extremity edema 09/17/2023 Morbid (severe) obesity due to excess calories ([facility]) Obstructive sleep apnea 07/10/2023 PAD (peripheral artery disease) ([facility]) 09/17/2023 Pancreatitis 09/17/2023 Pneumonia 09/17/2023 Proteinuria, unspecified Pulmonary hypertension ([facility]) 09/17/2023 Radiculopathy, lumbar region 09/17/2023 Tobacco user 09/17/2023 Type 2 diabetes mellitus with complication, with long-term current use of insulin ([facility]) 07/10/2023 Unilateral primary osteoarthritis, [...] hyperglycemia, with long-term current use of insulin ([facility]) - POCT glucose manually resulted - POCT glycosylated hemoglobin (Hb A1C) docked device We will continue with Lantus 58, lispro 02/16/12 according to meal size, Mounjaro 15 mg once weekly, Farxiga 5 mg once a day Encounter for dietary consultation Vitamin D deficiency Primary hypertension ([facility]) To follow with her PCP Insulin long-term use ([facility]) Hyperlipemia, mixed ([facility]) Continue with Zocor 10 mg once daily Microalbuminuria Class 3 severe obesity due to excess calories with serious comorbidity and body mass index (BMI) of50.0 to 59.9 in adult ([facility]) Diet and exercise reviewed with the patient Follow up in about 3 months (around 08/27/2024). documented in this encounterSoutheast Missouri [id number] History of Present illness Narrative* Mckayla Blas NP - 04/14/2024 11:45 AM EDTAssociated Problem(s): Hyperpigmentation of skin Will try cerevue ointment to see if helps * Mckayla Blas NP - 04/14/2024 11:43 AM EDTAssociated Problem(s): Tobacco user Urged to quit * Mckayla Blas NP - 04/14/2024 11:43 AM EDTAssociated Problem(s): Type 2 diabetes mellitus with complication, with long-term current use of insulin ([facility]) Check blood sugars daily, follow w [...] - 04/14/2024 11:42 AM EDTAssociated Problem(s): Hypertension ([facility]) Stable on current meds Refill meds * Mckayla Blas NP - 04/14/2024 11:42 AM EDTAssociated Problem(s): COPD (chronic obstructive pulmonary disease) ([facility]) Stable at this time, no changes [...] being taken. She does not see a barrel rifler hook.Eye exam is not current. Hypertension This is [...] or chew. ergocalciferol (Vitamin D2) 1.25 MG (26566 UT) capsule TAKE 1 CAPSULE BY MOUTH ONE TIME PER WEEK furosemide (LASIX) 20 mg, Oral, Daily PRN, Take in the afternoon as needed furosemide (LASIX) 40 mg, Oral, Daily Glucose Blood (ACCU-CHEK JAQUI PLUS ) 4 times daily HumaLOG KWIKPEN 100 UNIT/ML injection Subcutaneous hydrALAZINE (APRESOLINE) 25 mg, Oral, 2 times daily HYDROcodone-acetaminophen ([place]) 5-325 MG tablet 1 tablet, 3 times [...] 42 tablet [facility] DAILY ALLERGIES: No Known [...] Albuminuria 09/17/2023 Angiomyolipoma Anxiety and depression ([facility]) 07/10/2023 Asthma ([facility]) 07/10/2023 Cellulitis of left lower extremity Cervical cancer ([facility]) 09/17/2023 Chronic pain of both knees 09/17/2023 COPD (chronic obstructive pulmonary disease) ([facility]) 07/10/2023 COPD exacerbation ([facility]) 09/17/2023 Decreased functional mobility 09/17/2023 Diabetic neuropathy ([facility]) 07/10/2023 Edema 07/10/2023 Elevated sed rate Elevated WBC count GERD (gastroesophageal reflux disease) 09/17/2023 Hyperlipidemia ([facility]) 09/17/2023 Hypertension ([facility]) 07/10/2023 Insomnia 09/17/2023 Lower extremity edema 09/17/2023 Obstructive sleep apnea 07/10/2023 PAD (peripheral artery disease) ([facility]) 09/17/2023 Pancreatitis 09/17/2023 Pneumonia 09/17/2023 Pulmonary hypertension ([facility]) 09/17/2023 Radiculopathy, lumbar region 09/17/2023 Tobacco user 09/17/2023 Type 2 diabetes mellitus with complication, with long-term current use of insulin ([facility]) 07/10/2023 Unilateral primary osteoarthritis, right hip [...] List Items Addressed This Visit Diabetic neuropathy ([facility]) Continue with tristan EAST reviewed Fu in 3 months Relevant Medications pregabalin (Lyrica) 300 MG capsule COPD (chronic obstructive pulmonary disease) ([facility]) - Primary Stable at this time, no changes in meds Encouraged smoking cessation Cont with dr Yañez Hypertension ([facility]) Stable on current meds Refill meds Relevant Medications hydrALAZINE (Apresoline) 25 MG tablet lisinopril 20 MG tablet Type 2 diabetes mellitus with complication, with long-term current use of insulin ([facility]) Check blood sugars daily, follow w [...] 81 MG chewable tablet Anxiety and depression ([facility]) Relevant Medications DULoxetine (Cymbalta) [address] [...] with unspecified complications ([facility]) Relevant Medications dapagliflozin (Farxiga) 10 MG Gastro-esophageal reflux disease without esophagitis Relevant Medications omeprazole (PriLOSEC) [address] capsule Edema, unspecified Relevant Medications potassium chloride ER (Micro-K) 10 MEQ ER capsule Edema Relevant Medications potassium chloride ER (Micro-K) 10 MEQ ER capsule Chronic obstructive pulmonary disease, unspecified ([facility]) Relevant Medications Roflumilast 500 MCG tablet documented in this encounterSoutheast Missouri [id number] Hospital Discharge instructions Patient Education 11/15/2022 14:09:21 [...] include: ?8 oz (237 mL) of milk, htdsehz-wkodndwnvhct-aykma milk, and calcium- fortifiedfruit juice. Calcium-fortified means [...] ?Spinach (cooked), rhubarb, beets, sweet potatoes, and Vincentian chard. ?Peanuts. ?Potato chips, swiss fries, and baked potatoes with skin on. ?Nuts and nut products. ?Chocolate. If you regularly take a diuretic medicine, make sure to eat at least 1 or 2 servings of fruits or vegetables that are high in potassium each day. These include: ?Avocado. ?Banana. ?Nelson, prune, carrot, or tomato juice. ?Baked potato. [...] magnesium, fish oil, or vitamin B6. Take egly-zxw-eoypyxv and prescription medicines only as told by [...] Casseroles. Pizza. Lasagna. Frozen meals. Potato chips. Spanish fries. The items listed above may not [...] provider. Document Revised: 03/06/2022 Document Reviewed: 03/06/2022 [employer] Patient Education 2022 [employer]. Follow Up Care 02/06/2022 11:44:09 With:SILVIA HOWELL, GAVIOTA Webb, URL Address: [address] [place] [address] When: Unknown [facility] [place] 02-16-2023 NoteCONSULTATION CONSULTATION DATE: 08/24/2022 HISTORY OF [...] We maintain her on pain medication with [place] 5/325 t.i.d., diclofenac 75 mg b.i.d. Her [...] her at this point. A refill for [place] 5/325 t.i.d. and diclofenac 75 mg b.i.d. will be sent to the pharmacy. Vitamin compliance and nutrition were discussed and enforced. I did highly encourage her to use exercise bands to increase the strength in her lower extremities. We will see her in three months' time, unless otherwise indicated, and patient agrees.[facility] [id number] NoteCONSULTATION CONSULTATION DATE: 05/11/2022 This 51-year-old female [...] 150. Medications include Lyrica 300 mg b.i.d., [place] 5/325 t.i.d., diclofenac 75 mg b.i.d. and [...] her medications today. We will maintain Lyrica, [place] and diclofenac at the set dose and frequency. We will follow-up in the clinic in three months' time. The patient is in agreement to this. Vitamin importance and nutrition were discussed.[facility] [id number] NoteCONSULTATION CONSULTATION DATE: 04/20/2022 HISTORY OF PRESENT [...] medications include Tylenol, Lyrica 300 mg b.i.d., [place] 5/325 t.i.d., amitriptyline, diclofenac and duloxetine. Patient's [...] followed up in the clinic.[facility] [id number] Evaluation note* Encounter Date Diagnosis Assessment Notes [...] to the DANIEL. Thrombocytopenia is unclear etiology. [employer] Other 08-15-2022 Evaluation note* Encounter Date Diagnosis [...] follow with Dr. Souza and Dr. Arauz. [facility] Other 08-01-2022 Hospital Discharge instructions Patient Education [...] fried and sweet foods. General instructions Take vkiw-aqo-xjvbipe and prescription medicines only as told by [...] 04/21/2010 Document Revised: 10/16/2019 Document Reviewed: 07/11/2018 [employer] Patient Education 2020 [employer]. Follow Up Care 01/05/2022 12:02:03 With:REGLA PHIPPS, Elbert Joya, URL Address: [facility] [address], [place] [address] [phone] When:Within 6 Month(s) Comments:w/ repeat CT A/P [facility] 07-14-2022 NoteCONSULTATION PROCEDURE DATE: 01/19/2022 PRE [...] patient tolerated it well. [facility] Signed and Approved by: GIL VALENZUELA [...] today. Medications include Lyrica 300 mg b.i.d., [place] 5/325 t.i.d., diclofenac 75 mg b.i.d. and [...] time unless otherwise indicated. [facility] Signed and Approved by: GIL VALENZUELA . 01/27/2022 14:15:00[facility] Future Appointments Appointment Date:08/14/2022 09:15:00 AM Scheduled Provider:Elbert ARAUZ MD Location:[facility] Appointment Type:URO Office Visit [facility] evaluation + Plan note Future Appointments Appointment Date:04/22/2024 10:00:00 AM Scheduled Provider:GAVIOTA ADAMES PA-C Location:[facility] Appointment Type:URO Office Visit [facility] evaluation note* Diagnosis Type 2 diabetes mellitus with unspecified complications ([facility]/HCC) Edema, unspecified Edema documented in this encounter [facility] HealthcareEvaluation note* Diagnosis Vaginal yeast infection- Primary Candidiasis of vulva and vagina documented in this encounter [facility] HealthcareEvaluation note* Diagnosis Primary hypertension (CMS/HCC)- [...] skin Other dyschromia documented in this encounter [facility]* Diagnosis Obstructive sleep [...] polyneuropathy associated with type 2 diabetes mellitus ([facility]) Chronic obstructive pulmonary disease, unspecified ([facility]) Pulmonary emphysema, unspecified emphysema type ([facility]) Bilateral lower extremity edema Tobacco user Tobacco use disorder Hyperpigmentation of skin Other dyschromia Type 2 diabetes mellitus with hyperglycemia, with long-term current use of insulin ([facility])- Primary Encounter for dietary consultation Vitamin D deficiency Primary hypertension ([facility]) Unspecified essential hypertension Insulin long-term use ([facility]) Encounter for long-term (current) use of insulin Hyperlipemia, mixed ([facility]) Mixed hyperlipidemia Microalbuminuria Proteinuria Class 3 severe obesity due to excess calories with serious comorbidity and body mass index (BMI) of50.0 to 59.9 in adult ([facility]) documented in this encounter [facility] HealthcareEvaluation note* Diagnosis Hyperlipidemia, unspecified ([facility]) Bilateral lower extremity edema documented in this encounter [facility] HealthcareEvaluation note* Diagnosis Vitamin D deficiency, unspecified documented in this encounter [facility] HealthcareEvaluation note* Diagnosis Obstructive sleep apnea- Primary Obstructive sleep apnea (adult) (pediatric) Pulmonary emphysema, unspecified emphysema type ([facility]) Primary hypertension ([facility]) Unspecified essential hypertension Type 2 diabetes mellitus with complication, with long-term current use of insulin ([facility]) Anxiety and depression ([facility]) Bilateral lower extremity edema Pulmonary emphysema, unspecified emphysema type ([facility])- Primary Primary hypertension ([facility]) Unspecified essential hypertension Class 3 severe obesity with serious comorbidity and body mass index (BMI) of 50.0 to 59.9 in adult,unspecified obesity type ([facility]) Obstructive sleep apnea Obstructive sleep apnea (adult) (pediatric) Pulmonary hypertension ([facility]) Other chronic pulmonary heart diseases Tobacco user Tobacco use disorder Cardiomegaly Primary hypertension ([facility])- Primary Unspecified essential hypertension Gastroesophageal reflux disease, unspecified whether esophagitis present Type 2 diabetes mellitus with complication, with long-term current use of insulin ([facility]) Mixed hyperlipidemia ([facility]) Mixed hyperlipidemia Tobacco user Tobacco use disorder Encounter for screening mammogram for malignant neoplasm of breast Chronic obstructive pulmonary disease, unspecified ([facility]) Other specified chronic obstructive pulmonary disease ([facility] Anxiety and depression ([facility]) Edema, unspecified Edema Hyperlipidemia, unspecified ([facility]) Diabetic polyneuropathy associated with type 2 [...] with long-term current use of insulin (CMS/[facility]) Class 3 severe obesity with serious [...] unspecified (CMS/HCC) Pulmonary emphysema, unspecified emphysema type ([facility]) Bilateral lower extremity edema Tobacco user Tobacco use disorder Hyperpigmentation of skin Other dyschromia Bilateral lower extremity edema documented in this encounter [facility] HealthcareEvaluation note* Diagnosis Obstructive sleep apnea- Primary Obstructive sleep apnea (adult) (pediatric) Pulmonary emphysema, unspecified emphysema type ([facility]/HCC) Primary hypertension ([facility]) Unspecified essential hypertension Type 2 diabetes mellitus with complication, with long-term current use of insulin ([facility]) Anxiety and depression ([facility]) Bilateral lower extremity edema Pulmonary emphysema, unspecified emphysema type (CMS/HCC)- Primary Primary hypertension ([facility]) Unspecified essential hypertension Class 3 severe obesity with serious comorbidity and body mass index (BMI) of 50.0 to 59.9 in adult,unspecified obesity type ([facility]) Obstructive sleep apnea Obstructive sleep apnea (adult) (pediatric) Pulmonary hypertension ([facility]) Other chronic pulmonary heart diseases Tobacco user Tobacco use disorder Cardiomegaly Primary hypertension ([facility])- Primary Unspecified essential hypertension Gastroesophageal reflux disease, unspecified whether esophagitis present Type 2 diabetes mellitus with complication, with long-term current use of insulin ([facility]) Mixed hyperlipidemia ([facility]) Mixed hyperlipidemia Tobacco user Tobacco use disorder Encounter for screening mammogram for malignant neoplasm of breast Chronic obstructive pulmonary disease, unspecified ([facility]) Other specified chronic obstructive pulmonary disease ([facility] Anxiety and depression ([facility]) Edema, unspecified Edema Hyperlipidemia, unspecified ([facility]) Diabetic polyneuropathy associated with type 2 diabetes mellitus ([facility]) Gout, unspecified cause, unspecified chronicity, unspecified site Non-seasonal allergic rhinitis, unspecified trigger Bilateral lower extremity edema COPD exacerbation ([facility]) Obstructive chronic bronchitis with exacerbation Pulmonary emphysema, unspecified emphysema type ([facility]) Venous insufficiency Unspecified venous (peripheral) insufficiency Candidiasis of breast COPD exacerbation ([facility])- Primary Obstructive chronic bronchitis with exacerbation Pulmonary hypertension ([facility]) Other chronic pulmonary heart diseases Class 3 severe obesity with serious comorbidity and body mass index (BMI) of 50.0 to 59.9 in adult,unspecified obesity type ([facility]) Encounter for subsequent annual wellness visit (AWV) in Medicare patient- Primary Type 2 diabetes mellitus with unspecified complications ([facility]) Pulmonary emphysema, unspecified emphysema type (CMS/HCC) Moderate persistent asthma without complication (CMS/HCC) Primary hypertension (CMS/[facility]) Unspecified essential hypertension Type 2 diabetes mellitus with complication, with long-term current use of insulin ([facility]) Class 3 severe obesity with serious comorbidity and body mass index (BMI) of 50.0 to 59.9 in adult,unspecified obesity type (CMS/[facility]) Tobacco user Tobacco use disorder Other headache syndrome Malignant neoplasm of cervix uteri, unspecified (CMS/HCC) Other specified disorders of adrenal gland (CMS/[facility]) Major depressive disorder, single episode, mild (HCC) ([facility]) Major depressive disorder, single episode, mild Non-pressure chronic ulcer of other part of left lower leg with fat layer exposed (CMS/[facility]) Chronic respiratory failure, unspecified whether with hypoxia or hypercapnia (CMS/[facility]) Disorder of adrenal gland, unspecified (CMS/[facility]) Non-pressure chronic ulcer of other part of right lower leg limited to breakdown of skin (CMS/[facility]) Non-recurrent acute suppurative otitis media of left ear without spontaneous rupture of tympanic membrane Primary hypertension ([facility])- Primary Unspecified essential hypertension Insomnia Insomnia, unspecified Type 2 diabetes mellitus with complication, with long-term current use of insulin (CMS/[facility]) Non-seasonal allergic rhinitis, unspecified trigger Type 2 diabetes mellitus with unspecified complications ([facility]) Anxiety and depression ([facility]) Gastro-esophageal reflux disease without esophagitis Edema, unspecified Edema Diabetic polyneuropathy associated with type 2 diabetes mellitus ([facility]) Chronic obstructive pulmonary disease, unspecified (CMS/[facility]) Pulmonary emphysema, unspecified emphysema type (CMS/HCC) Bilateral lower extremity edema Tobacco user Tobacco use disorder Hyperpigmentation of skin Other dyschromia Primary hypertension (CMS/HCC)- Primary Unspecified essential hypertension Diabetic polyneuropathy associated with type 2 diabetes mellitus (CMS/HCC) Pulmonary emphysema, unspecified emphysema type (CMS/HCC) Critical limb ischemia of right lower extremity (CMS/[facility]) PAD (peripheral artery disease) ([facility]) Unspecified peripheral vascular disease Gastroesophageal reflux disease, unspecified whether esophagitis present Bilateral lower extremity edema Venous ulcer of right leg (CMS/[facility]) Type 2 diabetes mellitus with complication, with long-term current use of insulin (CMS/[facility]) Tobacco user Tobacco use disorder Encounter for smoking cessation counseling Kidney stone Calculus of kidney Adrenal mass 1 cm to 4 cm in diameter (CMS/HCC) Radiculopathy, lumbar region Thoracic or lumbosacral neuritis or radiculitis, unspecified Non-seasonal allergic rhinitis, unspecified trigger Type 2 diabetes mellitus with unspecified complications (CMS/HCC) documented in this encounter [facility] HealthcareEvaluation note* Diagnosis Obstructive sleep apnea- Primary Obstructive sleep apnea (adult) (pediatric) Pulmonary emphysema, unspecified emphysema type (CMS/HCC) Primary hypertension (CMS/HCC) Unspecified essential hypertension Type 2 diabetes mellitus with complication, with long-term current use of insulin (CMS/HCC) Anxiety and depression (CMS/HCC) Bilateral lower extremity edema Pulmonary emphysema, unspecified emphysema type (CMS/HCC)- Primary Primary hypertension (CMS/[facility]) Unspecified essential hypertension Class 3 severe [...] current use of insulin (CMS/HCC) Mixed hyperlipidemia (CMS/[facility]) Mixed hyperlipidemia Tobacco user Tobacco use disorder Encounter for screening mammogram for malignant neoplasm of breast Chronic obstructive pulmonary disease, unspecified (CMS/[facility]) Other specified chronic obstructive pulmonary disease (CMS/HCC) Anxiety and depression (CMS/HCC) Edema, unspecified Edema Hyperlipidemia, unspecified (CMS/[facility]) Diabetic polyneuropathy associated with type 2 diabetes mellitus (CMS/[facility]) Gout, unspecified cause, unspecified chronicity, unspecified [...] 50.0 to 59.9 in adult,unspecified obesity type (CMS/[facility]) Encounter for subsequent annual wellness visit (AWV) in Medicare patient- Primary Type 2 diabetes mellitus with unspecified complications (CMS/HCC) Pulmonary emphysema, unspecified emphysema type (CMS/HCC) Moderate persistent asthma without complication (CMS/HCC) Primary hypertension (CMS/HCC) Unspecified essential hypertension Type 2 diabetes mellitus with complication, with long-term current use of insulin (CMS/[facility]) Class 3 severe obesity with serious comorbidity and body mass index (BMI) of 50.0 to 59.9 in adult,unspecified obesity type (CMS/HCC) Tobacco user Tobacco use disorder Other headache syndrome Malignant neoplasm of cervix uteri, unspecified (CMS/HCC) Other specified disorders of adrenal gland (CMS/HCC) Major depressive disorder, single episode, mild (HCC) (CMS/[facility]) Major depressive disorder, single episode, mild Non-pressure chronic ulcer of other part of left lower leg with fat layer exposed (CMS/[facility]) Chronic respiratory failure, unspecified whether with hypoxia or hypercapnia (CMS/[facility]) Disorder of adrenal gland, unspecified (CMS/[facility]) Non-pressure chronic ulcer of other part of right lower leg limited to breakdown of skin (CMS/[facility]) Non-recurrent acute suppurative otitis media of left ear without spontaneous rupture of tympanic membrane Primary hypertension ([facility]/HCC)- Primary Unspecified essential hypertension Insomnia Insomnia, unspecified Type 2 diabetes mellitus with complication, with long-term current use of insulin (CMS/[facility]) Non-seasonal allergic rhinitis, unspecified trigger Type 2 diabetes mellitus with unspecified complications (CMS/[facility]) Anxiety and depression (CMS/[facility]) Gastro-esophageal reflux disease without esophagitis Edema, unspecified Edema Diabetic polyneuropathy associated with type 2 diabetes mellitus ([facility]) Chronic obstructive pulmonary disease, unspecified (CMS/HCC) Pulmonary emphysema, unspecified emphysema type (CMS/HCC) Bilateral lower extremity edema Tobacco user Tobacco use disorder Hyperpigmentation of skin Other dyschromia Primary hypertension (CMS/HCC)- Primary Unspecified essential hypertension Diabetic polyneuropathy associated with type 2 diabetes mellitus (CMS/HCC) Pulmonary emphysema, unspecified emphysema type (CMS/HCC) Critical limb ischemia of right lower extremity (CMS/HCC) PAD (peripheral artery disease) ([facility]) Unspecified peripheral vascular disease Gastroesophageal reflux disease, unspecified whether esophagitis present Bilateral lower extremity edema Venous ulcer of right leg (CMS/[facility]) Type 2 diabetes mellitus with complication, with long-term current use of insulin (CMS/[facility]) Tobacco user Tobacco use disorder Encounter for smoking cessation counseling Kidney stone Calculus of kidney Adrenal mass 1 cm to 4 cm in diameter ([facility]) Radiculopathy, lumbar region Thoracic or lumbosacral neuritis or radiculitis, unspecified Non-seasonal allergic rhinitis, unspecified trigger Type 2 diabetes mellitus with unspecified complications ([facility]) Anxiety and depression ([facility])- Primary Morbid (severe) obesity due to excess calories ([facility]) Body mass index (BMI) 50.0-59.9, adult ([facility]) Malignant neoplasm of cervix uteri, unspecified ([facility]) Diabetic polyneuropathy associated with type 2 diabetes mellitus ([facility] Chronic diastolic heart failure ([facility]) Chronic diastolic heart failure Primary hypertension ([facility]) Unspecified essential hypertension Idiopathic chronic venous hypertension of both lower extremities with ulcer ([facility]) Gastroesophageal reflux disease, unspecified whether esophagitis present Bilateral lower extremity edema Type 2 diabetes mellitus with complication, with long-term current use of insulin ([facility]) Tobacco user Tobacco use disorder Mixed hyperlipidemia ([facility]) Mixed hyperlipidemia Gout, unspecified cause, unspecified chronicity, unspecified site Vitamin deficiency Unspecified vitamin deficiency Gastro-esophageal reflux disease without esophagitis Edema, unspecified Edema Hyperlipidemia, unspecified ([facility]) Encounter for smoking cessation counseling Venous ulcer of right leg ([facility]) Antibiotic-induced yeast infection documented in this encounter [facility] HealthcareEvaluation note* Diagnosis Obstructive sleep apnea- Primary Obstructive sleep apnea (adult) (pediatric) Pulmonary emphysema, unspecified emphysema type ([facility]) Primary hypertension ([facility]) Unspecified essential hypertension Type 2 diabetes mellitus with complication, with long-term current use of insulin ([facility]) Anxiety and depression ([facility]) Bilateral lower extremity edema Pulmonary emphysema, unspecified emphysema type ([facility])- Primary Primary hypertension ([facility]) Unspecified essential hypertension Class 3 severe obesity with serious comorbidity and body mass index (BMI) of 50.0 to 59.9 in adult,unspecified obesity type Obstructive sleep apnea Obstructive sleep apnea (adult) (pediatric) Pulmonary hypertension ([facility]) Other chronic pulmonary heart diseases Tobacco user Tobacco use disorder Cardiomegaly Primary hypertension ([facility])- Primary Unspecified essential hypertension Gastroesophageal reflux disease, unspecified whether esophagitis present Type 2 diabetes mellitus with complication, with long-term current use of insulin ([facility]) Mixed hyperlipidemia (CMS/[facility]) Mixed hyperlipidemia Tobacco user Tobacco use disorder Encounter for screening mammogram for malignant neoplasm of breast Chronic obstructive pulmonary disease, unspecified Other specified chronic obstructive pulmonary disease Anxiety and depression (CMS/[facility]) Edema, unspecified Edema Hyperlipidemia, unspecified (CMS/[facility]) Diabetic polyneuropathy associated with type 2 diabetes mellitus (CMS/[facility]) Gout, unspecified cause, unspecified chronicity, unspecified site Non-seasonal allergic rhinitis, unspecified trigger Bilateral lower extremity edema COPD exacerbation (CMS/[facility]) Obstructive chronic bronchitis with exacerbation Pulmonary emphysema, unspecified emphysema type (CMS/[facility]) Venous insufficiency Unspecified venous (peripheral) insufficiency Candidiasis of breast COPD exacerbation (CMS/[facility])- Primary Obstructive chronic bronchitis with exacerbation Pulmonary hypertension (CMS/[facility]) Other chronic pulmonary heart diseases Class 3 severe obesity with serious comorbidity and body mass index (BMI) of 50.0 to 59.9 in adult,unspecified obesity type Encounter for subsequent annual wellness visit (AWV) in Medicare patient- Primary Type 2 diabetes mellitus with unspecified complications Pulmonary emphysema, unspecified emphysema type ([facility] Moderate persistent asthma without complication ([facility]) Primary hypertension ([facility]) Unspecified essential hypertension Type 2 diabetes mellitus with complication, with long-term current use of insulin ([facility]) Class 3 severe obesity with serious comorbidity and body mass index (BMI) of 50.0 to 59.9 in adult,unspecified obesity type Tobacco user Tobacco use disorder Other headache syndrome Malignant neoplasm of cervix uteri, unspecified Other specified disorders of adrenal gland Major depressive disorder, single episode, mild (HCC) ([facility]) Major depressive disorder, single episode, mild Non-pressure chronic ulcer of other part of left lower leg with fat layer exposed Chronic respiratory failure, unspecified whether with hypoxia or hypercapnia Disorder of adrenal gland, unspecified Non-pressure chronic ulcer of other part of right lower leg limited to breakdown of skin (CMS/[facility]) Non-recurrent acute suppurative otitis media of left ear without spontaneous rupture of tympanic membrane Primary hypertension (CMS/[facility])- Primary Unspecified essential hypertension Insomnia Insomnia, unspecified Type 2 diabetes mellitus with complication, with long-term current use of insulin (CMS/[facility]) Non-seasonal allergic rhinitis, unspecified trigger Type 2 diabetes mellitus with unspecified complications Anxiety and depression ([facility]) Gastro-esophageal reflux disease without esophagitis Edema, unspecified Edema Diabetic polyneuropathy associated with type 2 diabetes mellitus ([facility]) Chronic obstructive pulmonary disease, unspecified Pulmonary emphysema, unspecified emphysema type ([facility]) Bilateral lower extremity edema Tobacco user Tobacco use disorder Hyperpigmentation of skin Other dyschromia Primary hypertension ([facility])- Primary Unspecified essential hypertension Diabetic polyneuropathy associated with type 2 diabetes mellitus ([facility]) Pulmonary emphysema, unspecified emphysema type ([facility] Critical limb ischemia of right lower extremity ([facility]) PAD (peripheral artery disease) ([facility]) Unspecified peripheral vascular disease Gastroesophageal reflux disease, unspecified whether esophagitis present Bilateral lower extremity edema Venous ulcer of right leg ([facility]) Type 2 diabetes mellitus with complication, with long-term current use of insulin ([facility]) Tobacco user Tobacco use disorder Encounter for smoking cessation counseling Kidney stone Calculus of kidney Adrenal mass 1 cm to 4 cm in diameter ([facility]) Radiculopathy, lumbar region Thoracic or lumbosacral neuritis or radiculitis, unspecified Non-seasonal allergic rhinitis, unspecified trigger Type 2 diabetes mellitus with unspecified complications Anxiety and depression ([facility])- Primary Morbid (severe) obesity due to excess calories ([facility]) Body mass index (BMI) 50.0-59.9, adult ([facility]) Malignant neoplasm of cervix uteri, unspecified Diabetic polyneuropathy associated with type 2 diabetes mellitus ([facility] Chronic diastolic heart failure ([facility]) Chronic diastolic heart failure Primary hypertension ([facility] [place]) Unspecified essential hypertension Idiopathic chronic venous hypertension of both lower extremities with ulcer Gastroesophageal reflux disease, unspecified whether esophagitis present Bilateral lower extremity edema Type 2 diabetes mellitus with complication, with long-term current use of insulin ([facility]) Tobacco user Tobacco use disorder Mixed hyperlipidemia ([facility]) Mixed hyperlipidemia Gout, unspecified cause, unspecified chronicity, unspecified site Vitamin deficiency Unspecified vitamin deficiency Gastro-esophageal reflux disease without esophagitis Edema, unspecified Edema Hyperlipidemia, unspecified ([facility] [place]) Encounter for smoking cessation counseling Venous ulcer of right leg ([facility] [place]) Antibiotic-induced yeast infection Type 2 diabetes mellitus with hyperglycemia, with long-term current use of insulin ([facility] [place])- Primary Encounter for dietary consultation Vitamin D deficiency Primary hypertension ([facility] [place]) Unspecified essential hypertension Insulin long-term use ([facility] [place]) Encounter for long-term (current) use of insulin Hyperlipemia, mixed ([facility]) Mixed hyperlipidemia Microalbuminuria Proteinuria Class 3 severe obesity due to excess calories with serious comorbidity and body mass index (BMI) of50.0 to 59.9 in adult documented in this encounter [facility] HealthcareEvaluation note* Diagnosis Obstructive sleep apnea- Primary Obstructive sleep apnea (adult) (pediatric) Pulmonary emphysema, unspecified emphysema type ([facility]) Primary hypertension ([facility]) Unspecified essential hypertension Type 2 diabetes mellitus with complication, with long-term current use of insulin ([facility]) Anxiety and depression ([facility]) Bilateral lower extremity edema Pulmonary emphysema, unspecified emphysema type ([facility])- Primary Primary hypertension ([facility]) Unspecified essential hypertension Class 3 severe obesity with serious comorbidity and body mass index (BMI) of 50.0 to 59.9 in adult,unspecified obesity type Obstructive sleep apnea Obstructive sleep apnea (adult) (pediatric) Pulmonary hypertension ([facility]) Other chronic pulmonary heart diseases Tobacco user Tobacco use disorder Cardiomegaly Primary hypertension ([facility])- Primary Unspecified essential hypertension Gastroesophageal reflux disease, unspecified whether esophagitis present Type 2 diabetes mellitus with complication, with long-term current use of insulin ([facility] Mixed hyperlipidemia ([facility]) Mixed hyperlipidemia Tobacco user Tobacco use disorder Encounter for screening mammogram for malignant neoplasm of breast Chronic obstructive pulmonary disease, unspecified Other specified chronic obstructive pulmonary disease Anxiety and depression ([facility]) Edema, unspecified Edema Hyperlipidemia, unspecified ([facility]) Diabetic polyneuropathy associated with type 2 diabetes mellitus ([facility]) Gout, unspecified cause, unspecified chronicity, unspecified site Non-seasonal allergic rhinitis, unspecified trigger Bilateral lower extremity edema COPD exacerbation ([facility]) Obstructive chronic bronchitis with exacerbation Pulmonary emphysema, unspecified emphysema type ([facility]) Venous insufficiency Unspecified venous (peripheral) insufficiency Candidiasis of breast COPD exacerbation ([facility])- Primary Obstructive chronic bronchitis with exacerbation Pulmonary hypertension ([facility]) Other chronic pulmonary heart diseases Class 3 severe obesity with serious comorbidity and body mass index (BMI) of 50.0 to 59.9 in adult,unspecified obesity type Encounter for subsequent annual wellness visit (AWV) in Medicare patient- Primary Type 2 diabetes mellitus with unspecified complications Pulmonary emphysema, unspecified emphysema type ([facility] Moderate persistent asthma without complication ([facility]) Primary hypertension ([facility]) Unspecified essential hypertension Type 2 diabetes mellitus with complication, with long-term current use of insulin ([facility]) Class 3 severe obesity with serious comorbidity and body mass index (BMI) of 50.0 to 59.9 in adult,unspecified obesity type Tobacco user Tobacco use disorder Other headache syndrome Malignant neoplasm of cervix uteri, unspecified Other specified disorders of adrenal gland Major depressive disorder, single episode, mild (HCC) ([facility]) Major depressive disorder, single episode, mild Non-pressure chronic ulcer of other part of left lower leg with fat layer exposed Chronic respiratory failure, unspecified whether with hypoxia or hypercapnia Disorder of adrenal gland, unspecified Non-pressure chronic ulcer of other part of right lower leg limited to breakdown of skin ([facility]) Non-recurrent acute suppurative otitis media of left ear without spontaneous rupture of tympanic membrane Primary hypertension ([facility])- Primary Unspecified essential hypertension Insomnia Insomnia, unspecified Type 2 diabetes mellitus with complication, with long-term current use of insulin ([facility]) Non-seasonal allergic rhinitis, unspecified trigger Type 2 diabetes mellitus with unspecified complications Anxiety and depression ([facility]) Gastro-esophageal reflux disease without esophagitis Edema, unspecified Edema Diabetic polyneuropathy associated with type 2 diabetes mellitus ([facility]) Chronic obstructive pulmonary disease, unspecified Pulmonary emphysema, unspecified emphysema type ([facility]) Bilateral lower extremity edema Tobacco user Tobacco use disorder Hyperpigmentation of skin Other dyschromia Primary hypertension ([facility])- Primary Unspecified essential hypertension Diabetic polyneuropathy associated with type 2 diabetes mellitus ([facility]) Pulmonary emphysema, unspecified emphysema type ([facility] Critical limb ischemia of right lower extremity ([facility]) PAD (peripheral artery disease) ([facility]) Unspecified peripheral vascular disease Gastroesophageal reflux disease, unspecified whether esophagitis present Bilateral lower extremity edema Venous ulcer of right leg ([facility]) Type 2 diabetes mellitus with complication, with long-term current use of insulin ([facility]) Tobacco user Tobacco use disorder Encounter for smoking cessation counseling Kidney stone Calculus of kidney Adrenal mass 1 cm to 4 cm in diameter ([facility]) Radiculopathy, lumbar region Thoracic or lumbosacral neuritis or radiculitis, unspecified Non-seasonal allergic rhinitis, unspecified trigger Type 2 diabetes mellitus with unspecified complications Anxiety and depression ([facility])- Primary Morbid (severe) obesity due to excess calories ([facility]) Body mass index (BMI) 50.0-59.9, adult ([facility]) Malignant neoplasm of cervix uteri, unspecified Diabetic polyneuropathy associated with type 2 diabetes mellitus ([facility] Chronic diastolic heart failure ([facility]) Chronic diastolic heart failure Primary hypertension (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) Tobacco user Tobacco use disorder Mixed hyperlipidemia ([facility]) Mixed hyperlipidemia Gout, unspecified cause, unspecified chronicity, unspecified site Vitamin deficiency Unspecified vitamin deficiency Gastro-esophageal reflux disease without esophagitis Edema, unspecified Edema Hyperlipidemia, unspecified ([facility]) Encounter for smoking cessation counseling Venous ulcer of right leg ([facility]) Antibiotic-induced yeast infection Chronic obstructive pulmonary disease, unspecified documented in this encounter [facility] HealthcareEvaluation note* Diagnosis Obstructive sleep apnea- Primary Obstructive sleep apnea (adult) (pediatric) Pulmonary emphysema, unspecified emphysema type ([facility]) Primary hypertension ([facility]) Unspecified essential hypertension Type 2 diabetes mellitus with complication, with long-term current use of insulin ([facility]) Anxiety and depression ([facility]) Bilateral lower extremity edema Pulmonary emphysema, unspecified emphysema type ([facility])- Primary Primary hypertension ([facility]) Unspecified essential hypertension Class 3 severe obesity with serious comorbidity and body mass index (BMI) of 50.0 to 59.9 in adult,unspecified obesity type Obstructive sleep apnea Obstructive sleep apnea (adult) (pediatric) Pulmonary hypertension ([facility]) Other chronic pulmonary heart diseases Tobacco user Tobacco use disorder Cardiomegaly Primary hypertension ([facility])- Primary Unspecified essential hypertension Gastroesophageal reflux disease, unspecified whether esophagitis present Type 2 diabetes mellitus with complication, with long-term current use of insulin ([facility]) Mixed hyperlipidemia ([facility]) Mixed hyperlipidemia Tobacco user Tobacco use disorder Encounter for screening mammogram for malignant neoplasm of breast Chronic obstructive pulmonary disease, unspecified Other specified chronic obstructive pulmonary disease Anxiety and depression ([facility]) Edema, unspecified Edema Hyperlipidemia, unspecified ([facility]) Diabetic polyneuropathy associated with type 2 diabetes mellitus ([facility]) Gout, unspecified cause, unspecified chronicity, unspecified site Non-seasonal allergic rhinitis, unspecified trigger Bilateral lower extremity edema COPD exacerbation ([facility]) Obstructive chronic bronchitis with exacerbation Pulmonary emphysema, unspecified emphysema type ([facility]) Venous insufficiency Unspecified venous (peripheral) insufficiency Candidiasis of breast COPD exacerbation ([facility])- Primary Obstructive chronic bronchitis with exacerbation Pulmonary hypertension ([facility]) Other chronic pulmonary heart diseases Class 3 severe obesity with serious comorbidity and body mass index (BMI) of 50.0 to 59.9 in adult,unspecified obesity type Encounter for subsequent annual wellness visit (AWV) in Medicare patient- Primary Type 2 diabetes mellitus with unspecified complications Pulmonary emphysema, unspecified emphysema type ([facility]) Moderate persistent asthma without complication ([facility]) Primary hypertension ([facility]) Unspecified essential hypertension Type 2 diabetes mellitus with complication, with long-term current use of insulin ([facility]) Class 3 severe obesity with serious comorbidity and body mass index (BMI) of 50.0 to 59.9 in adult,unspecified obesity type Tobacco user Tobacco use disorder Other headache syndrome Malignant neoplasm of cervix uteri, unspecified Other specified disorders of adrenal gland Major depressive disorder, single episode, mild (HCC) ([facility]) Major depressive disorder, single episode, mild Non-pressure chronic ulcer of other part of left lower leg with fat layer exposed Chronic respiratory failure, unspecified whether with hypoxia or hypercapnia Disorder of adrenal gland, unspecified Non-pressure chronic ulcer of other part of right lower leg limited to breakdown of skin ([facility]) Non-recurrent acute suppurative otitis media of left ear without spontaneous rupture of tympanic membrane Primary hypertension ([facility])- Primary Unspecified essential hypertension Insomnia Insomnia, unspecified Type 2 diabetes mellitus with complication, with long-term current use of insulin ([facility]) Non-seasonal allergic rhinitis, unspecified trigger Type 2 diabetes mellitus with unspecified complications Anxiety and depression ([facility]) Gastro-esophageal reflux disease without esophagitis Edema, unspecified Edema Diabetic polyneuropathy associated with type 2 diabetes mellitus ([facility]) Chronic obstructive pulmonary disease, unspecified Pulmonary emphysema, unspecified emphysema type ([facility]) Bilateral lower extremity edema Tobacco user Tobacco use disorder Hyperpigmentation of skin Other dyschromia Primary hypertension ([facility])- Primary Unspecified essential hypertension Diabetic polyneuropathy associated with type 2 diabetes mellitus ([facility]) Pulmonary emphysema, unspecified emphysema type ([facility] Critical limb ischemia of right lower extremity ([facility]) PAD (peripheral artery disease) ([facility]) Unspecified peripheral vascular disease Gastroesophageal reflux disease, unspecified whether esophagitis present Bilateral lower extremity edema Venous ulcer of right leg ([facility]) Type 2 diabetes mellitus with complication, with long-term current use of insulin ([facility]) Tobacco user Tobacco use disorder Encounter for smoking cessation counseling Kidney stone Calculus of kidney Adrenal mass 1 cm to 4 cm in diameter ([facility]) Radiculopathy, lumbar region Thoracic or lumbosacral neuritis or radiculitis, unspecified Non-seasonal allergic rhinitis, unspecified trigger Type 2 diabetes mellitus with unspecified complications Anxiety and depression ([facility])- Primary Morbid (severe) obesity due to excess calories ([facility]) Body mass index (BMI) 50.0-59.9, adult ([facility]) Malignant neoplasm of cervix uteri, unspecified Diabetic polyneuropathy associated with type 2 diabetes mellitus ([facility] Chronic diastolic heart failure ([facility]) Chronic diastolic heart failure Primary hypertension (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) Tobacco user Tobacco use disorder Mixed hyperlipidemia ([facility]) Mixed hyperlipidemia Gout, unspecified cause, unspecified chronicity, unspecified site Vitamin deficiency Unspecified vitamin deficiency Gastro-esophageal reflux disease without esophagitis Edema, unspecified Edema Hyperlipidemia, unspecified ([facility] [place]) Encounter for smoking cessation counseling Venous ulcer of right leg ([facility]) Antibiotic-induced yeast infection Primary hypertension ([facility] [place])- Primary Unspecified essential hypertension Diabetic polyneuropathy associated with type 2 diabetes mellitus ([facility]) Chronic diastolic heart failure ([facility]) Chronic diastolic heart failure Bilateral lower extremity edema Morbid (severe) obesity due to excess calories ([facility]) Type 2 diabetes mellitus with complication, with long-term current use of insulin ([facility] Anxiety and depression ([facility]) Cigarette nicotine dependence without complication Encounter for screening mammogram for malignant neoplasm of breast Insomnia Insomnia, unspecified Non-seasonal allergic rhinitis, unspecified trigger Type 2 diabetes mellitus with unspecified complications Vitamin D deficiency, unspecified Gastro-esophageal reflux disease without esophagitis PAD (peripheral artery disease) ([facility]) Unspecified peripheral vascular disease Gastroesophageal reflux disease, unspecified whether esophagitis present Venous ulcer of right leg ([facility]) documented in this encounter [facility] HealthcareEvaluation note* Diagnosis Obstructive sleep [...] 50.0 to 59.9 in adult,unspecified obesity type ([facility]) Obstructive sleep apnea Obstructive sleep apnea [...] 50.0 to 59.9 in adult,unspecified obesity type ([facility]) Encounter for subsequent annual wellness visit [...] 50.0 to 59.9 in adult,unspecified obesity type ([facility]) Tobacco user Tobacco use disorder Other headache syndrome Malignant neoplasm of cervix uteri, unspecified (HCC) Other specified disorders of adrenal gland (HCC) Major depressive disorder, single episode, mild Major depressive disorder, single episode, mild Non-pressure chronic ulcer of other part of left lower leg with fat layer exposed ([facility]) Chronic respiratory failure, unspecified whether with hypoxia or hypercapnia ([facility]) Disorder of adrenal gland, unspecified ([facility]) Non-pressure chronic ulcer of other part of right lower leg limited to breakdown of skin ([facility]) Non-recurrent acute suppurative otitis media of left ear without spontaneous rupture of tympanic membrane Primary hypertension- Primary Unspecified essential hypertension Insomnia Insomnia, unspecified Type 2 diabetes mellitus with complication, with long-term current use of insulin ([facility]) Non-seasonal allergic rhinitis, unspecified trigger Type 2 diabetes mellitus with unspecified complications ([facility]) Anxiety and depression Gastro-esophageal reflux disease without esophagitis Edema, unspecified Edema Diabetic polyneuropathy associated with type 2 diabetes mellitus ([facility]) Chronic obstructive pulmonary disease, unspecified ([facility]) Pulmonary emphysema, unspecified emphysema type ([facility]) Bilateral lower extremity edema Tobacco user Tobacco use disorder Hyperpigmentation of skin Other dyschromia Primary hypertension- Primary Unspecified essential hypertension Diabetic polyneuropathy associated with type 2 diabetes mellitus ([facility]) Pulmonary emphysema, unspecified emphysema type ([facility]) Critical limb ischemia of right lower extremity ([facility]) PAD (peripheral artery disease) Unspecified peripheral vascular disease Gastroesophageal reflux disease, unspecified whether esophagitis present Bilateral lower extremity edema Venous ulcer of right leg ([facility]) Type 2 diabetes mellitus with complication, with long-term current use of insulin ([facility]) Tobacco user Tobacco use disorder Encounter for smoking cessation counseling Kidney stone Calculus of kidney Adrenal mass 1 cm to 4 cm in diameter ([facility]) Radiculopathy, lumbar region Thoracic or lumbosacral neuritis or radiculitis, unspecified Non-seasonal allergic rhinitis, unspecified trigger Type 2 diabetes mellitus with unspecified complications ([facility]) Anxiety and depression- Primary Morbid (severe) obesity due to excess calories ([facility]) Body mass index (BMI) 50.0-59.9, adult ([facility]) Malignant neoplasm of cervix uteri, unspecified ([facility]) Diabetic polyneuropathy associated with type 2 diabetes mellitus ([facility]) Chronic diastolic heart failure (HCC) Chronic [...] Morbid (severe) obesity due to excess calories ([facility]) Type 2 diabetes mellitus with complication, with long-term current use of insulin ([facility]) Anxiety and depression Cigarette nicotine dependence without complication Encounter for screening mammogram for malignant neoplasm of breast Insomnia Insomnia, unspecified Non-seasonal allergic rhinitis, unspecified trigger Type 2 diabetes mellitus with unspecified complications ([facility]) Vitamin D deficiency, unspecified Gastro-esophageal reflux disease without esophagitis PAD (peripheral artery disease) Unspecified peripheral vascular disease Gastroesophageal reflux disease, unspecified whether esophagitis present Venous ulcer of right leg (HCC) Cellulitis of left lower extremity- Primary COPD exacerbation ([facility]) Obstructive chronic bronchitis with exacerbation Primary hypertension Unspecified essential hypertension Pulmonary hypertension (HCC) Other chronic pulmonary heart diseases Morbid (severe) obesity due to excess calories ([facility]) Type 2 diabetes mellitus with complication, with long-term current use of insulin ([facility]) Anxiety and depression Fever, unspecified fever cause Hyperlipidemia, unspecified Tobacco user Tobacco use disorder Encounter for smoking cessation counseling documented in this encounter [facility] HealthcareEvaluation note* Diagnosis Obstructive sleep apnea- Primary Obstructive sleep apnea (adult) (pediatric) Pulmonary emphysema, unspecified emphysema type ([facility]) Primary hypertension ([facility]) Unspecified essential hypertension Type 2 diabetes mellitus with complication, with long-term current use of insulin ([facility]) Anxiety and depression ([facility]) Bilateral lower extremity edema Pulmonary emphysema, unspecified emphysema type ([facility])- Primary Primary hypertension ([facility]) Unspecified essential hypertension Class 3 severe [...] chronic obstructive pulmonary disease Anxiety and depression (CMS/[facility]) Edema, unspecified Edema Hyperlipidemia, unspecified (CMS/HCC) Diabetic polyneuropathy associated with type 2 diabetes mellitus (CMS/[facility]) Gout, unspecified cause, unspecified chronicity, unspecified site Non-seasonal allergic rhinitis, unspecified trigger Bilateral lower extremity edema COPD exacerbation ([facility]) Obstructive chronic bronchitis with exacerbation Pulmonary emphysema, unspecified emphysema type (CMS/[facility]) Venous insufficiency Unspecified venous (peripheral) insufficiency Candidiasis of breast COPD exacerbation (CMS/[facility])- Primary Obstructive chronic bronchitis with exacerbation Pulmonary hypertension (CMS/[facility]) Other chronic pulmonary heart diseases Class 3 severe obesity with serious comorbidity and body mass index (BMI) of 50.0 to 59.9 in adult,unspecified obesity type Encounter for subsequent annual wellness visit (AWV) in Medicare patient- Primary Type 2 diabetes mellitus with unspecified complications Pulmonary emphysema, unspecified emphysema type (CMS/[facility]) Moderate persistent asthma without complication (CMS/[facility]) Primary hypertension ([facility]) Unspecified essential hypertension Type 2 diabetes mellitus with complication, with long-term current use of insulin ([facility]) Class 3 severe obesity with serious comorbidity and body mass index (BMI) of 50.0 to 59.9 in adult,unspecified obesity type Tobacco user Tobacco use disorder Other headache syndrome Malignant neoplasm of cervix uteri, unspecified Other specified disorders of adrenal gland Major depressive disorder, single episode, mild (HCC) (CMS/[facility]) Major depressive disorder, single episode, mild Non-pressure chronic ulcer of other part of left lower leg with fat layer exposed Chronic respiratory failure, unspecified whether with hypoxia or hypercapnia Disorder of adrenal gland, unspecified Non-pressure chronic ulcer of other part of right lower leg limited to breakdown of skin (CMS/[facility]) Non-recurrent acute suppurative otitis media of left ear without spontaneous rupture of tympanic membrane Primary hypertension (CMS/[facility])- Primary Unspecified essential hypertension Insomnia Insomnia, unspecified Type 2 diabetes mellitus with complication, with long-term current use of insulin ([facility]) Non-seasonal allergic rhinitis, unspecified trigger Type 2 diabetes mellitus with unspecified complications Anxiety and depression ([facility]) Gastro-esophageal reflux disease without esophagitis Edema, unspecified Edema Diabetic polyneuropathy associated with type 2 diabetes mellitus ([facility]) Chronic obstructive pulmonary disease, unspecified Pulmonary emphysema, unspecified emphysema type ([facility]) Bilateral lower extremity edema Tobacco user Tobacco use disorder Hyperpigmentation of skin Other dyschromia Primary hypertension ([facility])- Primary Unspecified essential hypertension Diabetic polyneuropathy associated with type 2 diabetes mellitus ([facility]) Pulmonary emphysema, unspecified emphysema type ([facility] Critical limb ischemia of right lower extremity ([facility]) PAD (peripheral artery disease) ([facility] [place]) Unspecified peripheral vascular disease Gastroesophageal reflux disease, unspecified whether esophagitis present Bilateral lower extremity edema Venous ulcer of right leg ([facility]) Type 2 diabetes mellitus with complication, with long-term current use of insulin ([facility]) Tobacco user Tobacco use disorder Encounter for smoking cessation counseling Kidney stone Calculus of kidney Adrenal mass 1 cm to 4 cm in diameter ([facility]) Radiculopathy, lumbar region Thoracic or lumbosacral neuritis or radiculitis, unspecified Non-seasonal allergic rhinitis, unspecified trigger Type 2 diabetes mellitus with unspecified complications Anxiety and depression ([facility])- Primary Morbid (severe) obesity due to excess calories ([facility]) Body mass index (BMI) 50.0-59.9, adult ([facility]) Malignant neoplasm of cervix uteri, unspecified Diabetic polyneuropathy associated with type 2 diabetes mellitus ([facility] Chronic diastolic heart failure ([facility]) Chronic diastolic heart failure Primary hypertension (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) Tobacco user Tobacco use disorder Mixed hyperlipidemia ([facility]) Mixed hyperlipidemia Gout, unspecified cause, unspecified chronicity, unspecified site Vitamin deficiency Unspecified vitamin deficiency Gastro-esophageal reflux disease without esophagitis Edema, unspecified Edema Hyperlipidemia, unspecified ([facility] [place]) Encounter for smoking cessation counseling Venous ulcer of right leg ([facility]) Antibiotic-induced yeast infection Primary hypertension ([facility])- Primary Unspecified essential hypertension Diabetic polyneuropathy associated with type 2 diabetes mellitus ([facility]) Chronic diastolic heart failure ([facility]) Chronic diastolic heart failure Bilateral lower extremity edema Morbid (severe) obesity due to excess calories ([facility]) Type 2 diabetes mellitus with complication, with long-term current use of insulin ([facility] Anxiety and depression ([facility]) Cigarette nicotine dependence without complication Encounter for screening mammogram for malignant neoplasm of breast Insomnia Insomnia, unspecified Non-seasonal allergic rhinitis, unspecified trigger Type 2 diabetes mellitus with unspecified complications Vitamin D deficiency, unspecified Gastro-esophageal reflux disease without esophagitis PAD (peripheral artery disease) ([facility]) Unspecified peripheral vascular disease Gastroesophageal reflux disease, unspecified whether esophagitis present Venous ulcer of right leg ([facility]) Cellulitis of left lower extremity- Primary COPD exacerbation ([facility]) Obstructive chronic bronchitis with exacerbation Primary hypertension ([facility]) Unspecified essential hypertension Pulmonary hypertension ([facility]) Other chronic pulmonary heart diseases Morbid (severe) obesity due to excess calories ([facility]) Type 2 diabetes mellitus with complication, with long-term current use of insulin ([facility]) Anxiety and depression ([facility]) Fever, unspecified fever cause documented in this encounter [facility] HealthcareEvaluation note* Diagnosis Obstructive sleep apnea- Primary Obstructive sleep apnea (adult) (pediatric) Pulmonary emphysema, unspecified emphysema type (HCC) Primary hypertension Unspecified essential hypertension Type 2 diabetes mellitus with complication, with long-term current use of insulin ([facility]) Anxiety and depression Bilateral lower extremity edema Pulmonary emphysema, unspecified emphysema type (HCC)- Primary Primary hypertension Unspecified essential hypertension Class 3 severe obesity with serious comorbidity and body mass index (BMI) of 50.0 to 59.9 in adult,unspecified obesity type ([facility]) Obstructive sleep apnea Obstructive sleep apnea (adult) (pediatric) Pulmonary hypertension (HCC) Other chronic pulmonary heart diseases Tobacco user Tobacco use disorder Cardiomegaly Primary hypertension- Primary Unspecified essential hypertension Gastroesophageal reflux disease, unspecified whether esophagitis present Type 2 diabetes mellitus with complication, with long-term current use of insulin ([facility]) Mixed hyperlipidemia Mixed hyperlipidemia Tobacco user [...] 50.0 to 59.9 in adult,unspecified obesity type ([facility]) Encounter for subsequent annual wellness visit (AWV) in Medicare patient- Primary Type 2 diabetes mellitus with unspecified complications (HCC) Pulmonary emphysema, unspecified emphysema type (HCC) Moderate persistent asthma without complication (HCC) Primary hypertension Unspecified essential hypertension Type 2 diabetes mellitus with complication, with long-term current use of insulin ([facility]) Class 3 severe obesity with serious comorbidity and body mass index (BMI) of 50.0 to 59.9 in adult,unspecified obesity type ([facility]) Tobacco user Tobacco use disorder Other [...] polyneuropathy associated with type 2 diabetes mellitus ([facility]) Pulmonary emphysema, unspecified emphysema type ([facility]) Critical limb ischemia of right lower extremity ([facility]) PAD (peripheral artery disease) Unspecified peripheral vascular disease Gastroesophageal reflux disease, unspecified whether esophagitis present Bilateral lower extremity edema Venous ulcer of right leg (HCC) Type 2 diabetes mellitus with complication, with long-term current use of insulin ([facility]) Tobacco user Tobacco use disorder Encounter for smoking cessation counseling Kidney stone Calculus of kidney Adrenal mass 1 cm to 4 cm in diameter ([facility]) Radiculopathy, lumbar region Thoracic or lumbosacral neuritis or radiculitis, unspecified Non-seasonal allergic rhinitis, unspecified trigger Type 2 diabetes mellitus with unspecified complications ([facility]) Anxiety and depression- Primary Morbid (severe) obesity due to excess calories ([facility]) Body mass index (BMI) 50.0-59.9, adult (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 ([facility]) Gastroesophageal reflux disease, unspecified whether esophagitis present Bilateral lower extremity edema Type 2 diabetes mellitus with complication, with long-term current use of insulin ([facility]) Tobacco user Tobacco use disorder Mixed hyperlipidemia Mixed hyperlipidemia Gout, unspecified cause, unspecified chronicity, unspecified site Vitamin deficiency Unspecified vitamin deficiency Gastro-esophageal reflux disease without esophagitis Edema, unspecified Edema Hyperlipidemia, unspecified Encounter for smoking cessation counseling Venous ulcer of right leg ([facility]) Antibiotic-induced yeast infection Primary hypertension- Primary Unspecified essential hypertension Diabetic polyneuropathy associated with type 2 diabetes mellitus (HCC) Chronic diastolic heart failure (HCC) Chronic diastolic heart failure Bilateral lower extremity edema Morbid (severe) obesity due to excess calories ([facility]) Type 2 diabetes mellitus with complication, with long-term current use of insulin ([facility]) Anxiety and depression Cigarette nicotine dependence without complication Encounter for screening mammogram for malignant neoplasm of breast Insomnia Insomnia, unspecified Non-seasonal allergic rhinitis, unspecified trigger Type 2 diabetes mellitus with unspecified complications ([facility]) Vitamin D deficiency, unspecified Gastro-esophageal reflux [...] Morbid (severe) obesity due to excess calories ([facility]) Type 2 diabetes mellitus with complication, [...] Morbid (severe) obesity due to excess calories ([facility]) Type 2 diabetes mellitus with hyperglycemia, with long-term current use of insulin ([facility]) documented in this encounter [facility] HealthcareEvaluation note* Diagnosis Obstructive sleep [...] 50.0 to 59.9 in adult,unspecified obesity type ([facility]) Obstructive sleep apnea Obstructive sleep apnea [...] polyneuropathy associated with type 2 diabetes mellitus ([facility]) Gout, unspecified cause, unspecified chronicity, unspecified [...] 50.0 to 59.9 in adult,unspecified obesity type ([facility]) Encounter for subsequent annual wellness visit (AWV) in Medicare patient- Primary Type 2 diabetes mellitus with unspecified complications (HCC) Pulmonary emphysema, unspecified emphysema type ([facility]) Moderate persistent asthma without complication (HCC) Primary hypertension Unspecified essential hypertension Type 2 diabetes mellitus with complication, with long-term current use of insulin ([facility]) Class 3 severe obesity with serious comorbidity and body mass index (BMI) of 50.0 to 59.9 in adult,unspecified obesity type ([facility]) Tobacco user Tobacco use disorder Other headache syndrome Malignant neoplasm of cervix uteri, unspecified (HCC) Other specified disorders of adrenal gland (HCC) Major depressive disorder, single episode, mild Major depressive disorder, single episode, mild Non-pressure chronic ulcer of other part of left lower leg with fat layer exposed ([facility]) Chronic respiratory failure, unspecified whether with [...] mellitus (HCC) Pulmonary emphysema, unspecified emphysema type ([facility]) Critical limb ischemia of right lower extremity ([facility]) PAD (peripheral artery disease) Unspecified peripheral vascular disease Gastroesophageal reflux disease, unspecified whether esophagitis present Bilateral lower extremity edema Venous ulcer of right leg (HCC) Type 2 diabetes mellitus with complication, with long-term current use of insulin ([facility]) Tobacco user Tobacco use disorder Encounter for smoking cessation counseling Kidney stone Calculus of kidney Adrenal mass 1 cm to 4 cm in diameter ([facility]) Radiculopathy, lumbar region Thoracic or lumbosacral neuritis or radiculitis, unspecified Non-seasonal allergic rhinitis, unspecified trigger Type 2 diabetes mellitus with unspecified complications ([facility]) Anxiety and depression- Primary Morbid (severe) obesity due to excess calories ([facility]) Body mass index (BMI) 50.0-59.9, adult ([facility]) Malignant neoplasm of cervix uteri, unspecified ([facility]) Diabetic polyneuropathy associated with type 2 diabetes mellitus ([facility]) Chronic diastolic heart failure ([facility]) Chronic diastolic heart failure Primary hypertension Unspecified essential hypertension 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 ([facility]) Gastroesophageal reflux disease, unspecified whether esophagitis present Bilateral lower extremity edema Type 2 diabetes mellitus with complication, with long-term current use of insulin ([facility]) Tobacco user Tobacco use disorder Mixed hyperlipidemia Mixed hyperlipidemia Gout, unspecified cause, unspecified chronicity, unspecified site Vitamin deficiency Unspecified vitamin deficiency Gastro-esophageal reflux disease without esophagitis Edema, unspecified Edema Hyperlipidemia, unspecified Encounter for smoking cessation counseling Venous ulcer of right leg ([facility]) Antibiotic-induced yeast infection Primary hypertension- Primary Unspecified essential hypertension Diabetic polyneuropathy associated with type 2 diabetes mellitus (HCC) Chronic diastolic heart failure (HCC) Chronic diastolic heart failure Bilateral lower extremity edema Morbid (severe) obesity due to excess calories ([facility]) Type 2 diabetes mellitus with complication, with long-term current use of insulin ([facility]) Anxiety and depression Cigarette nicotine dependence without complication Encounter for screening mammogram for malignant neoplasm of breast Insomnia Insomnia, unspecified Non-seasonal allergic rhinitis, unspecified trigger Type 2 diabetes mellitus with unspecified complications ([facility]) Vitamin D deficiency, unspecified Gastro-esophageal reflux [...] Morbid (severe) obesity due to excess calories ([facility]) Type 2 diabetes mellitus with complication, with long-term current use of insulin ([facility]) Anxiety and depression Fever, unspecified fever cause Encounter for subsequent annual wellness visit (AWV) in Medicare patient- Primary Mixed hyperlipidemia Mixed hyperlipidemia Type 2 diabetes mellitus with complication, with long-term current use of insulin ([facility]) Bilateral lower extremity edema Gastro-esophageal reflux disease without esophagitis Chronic diastolic heart failure (HCC) Chronic diastolic heart failure Primary hypertension Unspecified essential hypertension Pulmonary hypertension (HCC) Other chronic pulmonary heart diseases Diabetic polyneuropathy associated with type 2 diabetes mellitus ([facility]) Pulmonary emphysema, unspecified emphysema type ([facility]) Moderate persistent asthma without complication ([facility]) Insomnia Insomnia, unspecified Non-seasonal allergic rhinitis, unspecified trigger Type 2 diabetes mellitus with unspecified complications ([facility]) Anxiety and depression Antibiotic-induced yeast infection Chronic obstructive pulmonary disease, unspecified ([facility]) Hyperlipidemia, unspecified Vaginal yeast infection Candidiasis of vulva and vagina Morbid (severe) obesity due to excess calories ([facility]) Encounter for dietary consultation- Primary Type 2 diabetes mellitus with hyperglycemia, with long-term current use of insulin ([facility]) Vitamin D deficiency Primary hypertension Unspecified essential hypertension Insulin long-term use ([facility]) Encounter for long-term (current) use of insulin Hyperlipemia, mixed Mixed hyperlipidemia Microalbuminuria Proteinuria Class 3 severe obesity due to excess calories with serious comorbidity and body mass index (BMI) of50.0 to 59.9 in adult ([facility]) documented in this encounter [facility] HealthcareEvaluation note* Diagnosis Obstructive sleep apnea- Primary Obstructive sleep apnea (adult) (pediatric) Pulmonary emphysema, unspecified emphysema type ([facility]) Primary hypertension Unspecified essential hypertension Type 2 diabetes mellitus with complication, with long-term current use of insulin ([facility]) Anxiety and depression Bilateral lower extremity edema Pulmonary emphysema, unspecified emphysema type (HCC)- Primary Primary hypertension Unspecified essential hypertension Class 3 severe obesity with serious comorbidity and body mass index (BMI) of 50.0 to 59.9 in adult,unspecified obesity type ([facility]) Obstructive sleep apnea Obstructive sleep apnea (adult) [...] 50.0 to 59.9 in adult,unspecified obesity type ([facility]) Encounter for subsequent annual wellness visit (AWV) in Medicare patient- Primary Type 2 diabetes mellitus with unspecified complications (HCC) Pulmonary emphysema, unspecified emphysema type ([facility]) Moderate persistent asthma without complication (HCC) Primary hypertension Unspecified essential hypertension Type 2 diabetes mellitus with complication, with long-term current use of insulin ([facility]) Class 3 severe obesity with serious comorbidity and body mass index (BMI) of 50.0 to 59.9 in adult,unspecified obesity type ([facility]) Tobacco user Tobacco use disorder [...] polyneuropathy associated with type 2 diabetes mellitus ([facility]) Pulmonary emphysema, unspecified emphysema type ([facility]) Critical limb ischemia of right lower extremity ([facility]) PAD (peripheral artery disease) Unspecified peripheral vascular disease Gastroesophageal reflux disease, unspecified whether esophagitis present Bilateral lower extremity edema Venous ulcer of right leg ([facility]) Type 2 diabetes mellitus with complication, with long-term current use of insulin ([facility]) Tobacco user Tobacco use disorder Encounter for smoking cessation counseling Kidney stone Calculus of kidney Adrenal mass 1 cm to 4 cm in diameter ([facility]) Radiculopathy, lumbar region Thoracic or lumbosacral neuritis or radiculitis, unspecified Non-seasonal allergic rhinitis, unspecified trigger Type 2 diabetes mellitus with unspecified complications ([facility]) Anxiety and depression- Primary Morbid (severe) obesity due to excess calories ([facility]) Body mass index (BMI) 50.0-59.9, adult ([facility]) Malignant neoplasm of cervix uteri, unspecified ([facility]) Diabetic polyneuropathy associated with type 2 diabetes mellitus ([facility]) Chronic diastolic heart failure (HCC) Chronic diastolic heart failure Primary hypertension Unspecified essential hypertension 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 ([facility]) Gastroesophageal reflux disease, unspecified whether esophagitis present Bilateral lower extremity edema Type 2 diabetes mellitus with complication, with long-term current use of insulin ([facility]) Tobacco user Tobacco use disorder Mixed hyperlipidemia Mixed hyperlipidemia Gout, unspecified cause, unspecified chronicity, unspecified site Vitamin deficiency Unspecified vitamin deficiency Gastro-esophageal reflux disease without esophagitis Edema, unspecified Edema Hyperlipidemia, unspecified Encounter for smoking cessation counseling Venous ulcer of right leg ([facility]) Antibiotic-induced yeast infection Primary hypertension- Primary Unspecified essential hypertension Diabetic polyneuropathy associated with type 2 diabetes mellitus (HCC) Chronic diastolic heart failure (HCC) Chronic diastolic heart failure Bilateral lower extremity edema Morbid (severe) obesity due to excess calories ([facility]) Type 2 diabetes mellitus with complication, with long-term current use of insulin ([facility]) Anxiety and depression Cigarette nicotine dependence [...] Morbid (severe) obesity due to excess calories ([facility]) Type 2 diabetes mellitus with complication, [...] Morbid (severe) obesity due to excess calories ([facility]) Tobacco user Tobacco use disorder Encounter for smoking cessation counseling documented in this encounter [facility] HealthcareEvaluation noteNo assessment information availableUpper [facility] Medical Center Work Phone: History general Narrative - Reported* Type Description Date Medical History diabetes mallitus Medical HistoryCOPDMedical HistoryADRENAL MASS 1 CM TO 4 CM IN DIAMETERMedical HistoryARTHRITISMedical HistoryASTHMAMedical HistoryHEADACHEMedical History HYPERTENSIONMedical HistoryKIDNEY STONESMedical HistoryLEFT FLANK PAINMedical HistoryMIXED INCONTINENCEMedical HistoryPROTEINURIAMedical HistorySMOKERSurgical [id number] Historytoe surgerySurgical HistoryLAPAROSCOPIC CHOLECYSTECTOMYHospitalization [id number] HistorySEE ABOVE [employer] Other Hospital course Narrative No data available for this section [facility] progress note No data available for this section [facility] reason for referral (narrative) , Referral to Dr. Cortés Referred by: REGLA PHIPPS, Elbert Joya [facility] reason for referral (narrative)No reason for referral information availableUpper Valley Medical Center Work Phone: Advance Directives No Advanced Directives Records FoundDocuments on File TypeDate RecordedPatient RepresentativeExplanationAdvance Directives and Living WillPower of Nail Mill Worker Advance Directive Response Recorded Date/ Time Advance [...] section and content) DATE CREATED AUTHOR 10/30/2019 [facility] DATE CREATED AUTHOR AUTHOR'S ORGANIZ ATION 09/15/2020 [facility] DATE CREATED AUTHOR AUTHOR'S ORGANIZ ATION 12/19/2022 [facility] DATE CREATED AUTHOR AUTHOR'S ORGANIZ ATION 01/30/2025 [facility] DATE CREATED AUTHOR AUTHOR'S ORGANIZ ATION 04/12/2025 [facility] DATE CREATED AUTHOR AUTHOR'S ORGANIZ ATION 04/29/2025 [facility] DATE CREATED AUTHOR AUTHOR'S ORGANIZ ATION 05/21/2025 [facility] Care Team (unrecognized sect ion and content) Team MemberRelationshipSpecialtyStart DateEnd Date Ty Amin MD PCP - GeneralFamily Medicine01/05/23Team MemberRelationshipSpecialtyStart DateEnd Date Ty Amin MD PCP - GeneralFamily Medicine01/05/23Team MemberRelationshipSpecialtyStart DateEnd Date Ty Amin MD [address] [place] [address] PCP - GeneralFamily Medicine09/20/23 Mckayla Blas NP [address] [place] [address] PCP - / Mckayla Blas NP [address] [place] [address] Nurse PractitionerFamily Medicine09/20/23Team MemberRelationshipSpecialtyStart DateEnd Date Ty Amin MD [address] [place] [address] PCP - [facility]09/20/23 Mckayla Blas NP [address] [place] [address] PCP [facility]/ Mckayla Blas NP [address] [place] [address] [facility]09/20/23Team MemberRelationshipSpecialtyStart DateEnd Date Ty Amin MD [address] [place] [address] PCP - [facility]09/20/23 Mckayla Blas NP [address] [place] [address] [place] [address]/ Mckayla Blas NP [address] [place] [address] Nurse Pract[facility]erP[facility]09/20/23Team MemberRelationshipSpecialtyStart DateEnd Date Ty Amin MD [address] [place] [address] PCP - [facility]09/20/23 Mckayla Blas NP [address] [place] [address] PCP - [facility]/ Mckayla Blas NP [address] [place] [address] Nurse Pract[facility]09/20/23Team MemberRelationshipSpecialtyStart DateEnd Date Ty Amin MD [address] [place] [address] PCP - [facility]09/20/23 Mckayla Blas NP [address] [place] [address] PCP [facility] Mckayla Blas NP [address] [place] [address] Nurse PractitionerP[facility]09/20/23Team MemberRelationshipSpecialtyStart DateEnd Date Ty Amin MD [address] [place] [address] [facility]09/20/23 Mckayla Blas NP [address] [place] [address] PCP [facility] Mckayla Blas NP [address] [place] [address] [facility] Medicine09/20/23Team MemberRelationshipSpecialtyStart DateEnd Date Ty Amin MD [address] [place] [address] PCP - [facility]09/20/23 Mckayla Blas NP [address] [place] [address] PCP [facility]/ Mckayla Blas NP [address] [place] [address] Nurse Pract[facility]09/20/23Team MemberRelationshipSpecialtyStart DateEnd Date Ty Amin MD [address] [place] [address] PCP - [facility]09/20/23 Mckayla Blas, SILVANO [address] [place] [address] [place] [address]/ Mckayla Blas NP [address] [place] [address] Nurse PractitionerP[facility]09/20/23Team MemberRelationshipSpecialtyStart DateEnd Date Ty Amin MD [address] [place] [address] PCP - Generalmily Medicine09/20/23 Mckayla Blas NP [address] [place] [address] [place] [address]/ Mckayla Blas NP [address] [place] [address] [facility] Medicine09/20/23Team MemberRelationshipSpecialtyStart DateEnd Date Ty Amin MD [address] [place] [address] PCP - [facility]09/20/23 Mckayla Blas NP [address] [place] [address] [place] [address]/ Mckayla Blas NP [address] [place] [address] Nurse Pract[facility]erP[facility]09/20/23Team MemberRelationshipSpecialtyStart DateEnd Date Ty Amin MD [address] [place] [address] PCP - [facility]09/20/23 Mckayla Blas NP [address] [place] [address] [place] [address]/ Mckayla Blas NP [address] [place] [address] Nurse Pract[facility]09/20/23Team MemberRelationshipSpecialtyStart DateEnd Date Ty Amin MD [address] [place] [address] PCP - [facility]09/20/23 Mckyala Blas NP [address] [place] [address] [place] [address] Mckayla Blas NP [address] [place] [address] Nurse PractitionerP[facility]09/20/23Team MemberRelationshipSpecialtyStart DateEnd Date Ty Amin MD [address] [place] [address] PCP - [facility]09/20/23 Mckayla Blas NP [address] [place] [address] [place] [address] Mckayla Blas NP [address] [place] [address] Nurse PractitionerP[facility]09/20/23Team MemberRelationshipSpecialtyStart DateEnd Date Ty Amin MD [address] [place] [address] PCP - [facility]09/20/23 Mckayla Blas NP [address] [place] [address] [place] [address]/ Mckayla Blas NP [address] [place] [address] Nurse PractitionerP[facility]09/20/23Team MemberRelationshipSpecialtyStart DateEnd Date Ty Amin MD [address] [place] [address] PCP - [facility]09/20/23 Mckayla Blas NP [address] [place] [address] [place] [address] Mckayla Blas NP [address] [place] [address] [facility] Medicine09/20/23Team MemberRelationshipSpecialtyStart DateEnd Date Ty Amin MD [address] [place] [address] PCP - [facility]09/20/23 Mckayla Blas NP [address] [place] [address] [facility]/ Mckayla Blas NP [address] [place] [address] Nurse PractitionerP[facility]09/20/23Team MemberRelationshipSpecialtyStart DateEnd Date Ty Amin MD [address] [place] [address] PCP - [facility]09/20/23 Mckayla Blas NP [address] [place] [address] [place] [address]/ Mckayla Blas NP [address] [place] [address] Nurse PractitionerP[facility]09/20/23Team MemberRelationshipSpecialtyStart DateEnd Date Ty Amin MD [address] [place] [address] PCP - [facility]09/20/23 Mckayla Blas NP [address] [place] [address] [place] [address]/ Mckayla Blas NP [address] [place] [address] [facility] Medicine09/20/23Team MemberRelationshipSpecialtyStart DateEnd Date Ty Amin MD [address] [place] [address] PCP - [facility] Medicine09/20/23 Mckayla Blas, SILVANO [address] [place] [address] PCP - [facility]/ Mckayla Blas NP [address] [place] [address] Nurse PractitionerP[facility]09/20/23Te MemberRelationshipSpecialtyStart DateEnd Date Ty Amin MD [address] [place] [address] PCP - [facility]09/20/23 Mckayla Blas NP [address] [place] [address] PCP [facility]/ Mckayla Blas NP [address] [place] [address] Nurse PractitionerP[facility]09/20/23Te MemberRelationshipSpecialtyStart DateEnd Date Ty Amin MD [address] [place] [address] PCP - GeneralFamily Medicine09/20/23 Mckayla Blas NP [address] [place] [address] [facility] Medicine09/20/23Team MemberRelationshipSpecialtyStart DateEnd Date Ty Amin MD [address] [place] [address] PCP - Generalmily Medicine09/20/23 Mckayla Blas NP [address] [place] [address] [facility] Medicine09/20/23Team MemberRelationshipSpecialtyStart DateEnd Date Ty Amin MD [address] [place] [address] [facility]CP - [facility]09/20/23 Mckayla Blas NP [address] [place] [address] [facility] Medicine09/20/23Team MemberRelationshipSpecialtyStart DateEnd Date Ty Amin MD [address] [place] [address] PCP - Generalmily Medicine09/20/23 Mckayla Blas NP [address] [place] [address] Nurse Pract[facility]09/20/23Team MemberRelationshipSpecialtyStart DateEnd Date Ty Amin MD [address] [place] [address] PCP - [facility]09/20/23 Mckayla Blas NP [address] [place] [address] Nurse Pract[facility]09/20/23 Team Status: Active Member Role Status Dates Mckayla Blas LASER ENGINEER-C Primary Care Provider Active Team Status: Active Member Role Status Dates Mckayla Blas , LASER ENGINEER-C Primary Care Provider Active Start: March 25, 2025 Price Arora DOAttending ProviderActiveStart: March 25, 2025 Team Status: Active Member Role Status Dates Mckayla Blas LASER ENGINEER-C Primary Care Provider Active Start: March 26, 2025 Darrell Wellsending ProviderActiveStart: March 26, 2025 Team Status: Inactive Member Role Status Dates Mckayla Blas LASER ENGINEER-C Primary Care Provider Active Start: April 06, 2025 End: April 06, 2025Mckayla Blas LASER ENGINEER-CAttending ProviderActiveStart: April 06, 2025 End: April 06, 2025 Team Status: Active Member Role/Relationship Status Dates Mckayla Blas , LASER ENGINEER-C Primary Care Provider Active Team Status: Active Member Role/Relationship Status Dates Mckayla Blas , LASER ENGINEER-C Primary Care Provider Active Start: March 25, 2025 Price Arora DOAttbrandee ProviderActiveStart: March 25, 2025 Team Status: Active Member Role/Relationship Status Dates Mckayla Blas , LASER ENGINEER-C Primary Care Provider Active Start: March 26, 2025 Darrell Wellsending ProviderActiveStart: March 26, 2025 Team Status: Inactive Member Role/Relationship Status Dates Mckayla Blas , LASER ENGINEER-C Primary Care Provider Active Start: April 06, 2025 End: April 06, 2025Mckayla Blas NP-CAttending ProviderActiveStart: April 06, 2025 End: April 06, 2025 Team Status: Inactive Member Role/Relationship Status Dates Mckayla Blas NP-C Primary Care Provider Active Start: April 29, 2025 End: April 29, 2025Mckayla Blas NP-Louann ProviderActiveStart: April 29, 2025 End: April 29, 2025Team MemberRelationshipSpecialtyStart DateEnd Date Ty Amin MD PCP - [facility]09/20/23 Mckayla Blas NP [address] [place] [address] PCP - [facility]/ Mckayla Blas NP Nurse [facility]09/20/23Team MemberRelationshipSpecialtyStart DateEnd Date Ty Amin MD [facility] - [facility] Medicine Ty Amin MD PCP - [facility]09/20/23 Mckayla Blas NP [address] [place] [address] PCP - [facility]/ Mckayla Blas NP Nurse [facility]09/20/23Team MemberRelationshipSpecialtyStart DateEnd Date Ty Amin MD PCP - [facility]09/20/23 Mckayla Blas NP [address] [place] [address] PCP - [facility]//12/31 Mckayla Blas NP Nurse PractitionerP[facility]09/20/23 REASON FOR VISIT (unrecogniz ed section and [...] BE BASED ON THE PRIMARY CLINICAL RECORDS. [employer] provides no warranty or guarantee of the accuracy or completeness of information in this document.
== END 2025-06-01 15:09 | disposition home or self-care (01) ==
LOC: WC 15:08
PROVIDERS: PCP Nurse Practitioner; Visit Provider Physician Assistant
DX: I87.332 Chronic venous hypertension (idiopathic) with ulcer and inflammation of left lower extremity (principal); L97.822 Non-pressure chronic ulcer of other part of left lower leg with fat layer exposed; I87.311 Chronic venous hypertension (idiopathic) with ulcer of right lower extremity; L97.812 Non-pressure chronic ulcer of other part of right lower leg with fat layer exposed
CPT/HCPCS: 29581

== ENCOUNTER 2025-06-05 10:00 | Outpatient (OUT) | payer MEDICARE, SELFPAY ==
--- OUTSIDE RECORDS SUMMARY | 2025-05-28 10:30 | XMS_ITS | Encounter Summary ---
Author Organization [facility] Address [address] [place] [address] Care Team Providers Care Data Warehousing Architect Name Role Phone Ty Amin MD Primary Care Provider [phone] Mckayla Blas NP Unavailable [phone] Reason for Visit * ReasonCommentsDiabetesFollow-up Encounter Details DateTypeDepartmentCare Team (Latest Contact Info)Mskeffgfksi04/20/2025 10:30 AM ESTOffice Visit [facility] [address] [place] [address] Rain Souza MD [address] [place] [address] Type 2 diabetes mellitus with hyperglycemia, with long-term current use of insulin (HCC) (Primary Dx); Encounter for dietary consultation; Vitamin D deficiency; Primary hypertension; Insulin long-term use (HCC); Hyperlipemia, mixed; Microalbuminuria; Type 2 diabetes mellitus with other circulatory complications (HCC) Social History Tobacco UseTypesPacks/DayYears UsedDateSmoking Tobacco: Every [...] relatives?Once a week08/26/2024How often do you attend yazidism or evangelical services?More than 4 times per year08/26/2024Do you belong to any clubs or organizations such as yazidism groups, unions, fraSkimble or athletic groups, or school groups?No08/26/2024How often do you attend meetings of the clubs or organizations you belong to?Never08/26/2024re you , , , , never , or living with a partner?Rnppvou2208/26/2024UDIT-C AnswerDate RecordedQ1: How often do you have [...] heating?Not hard at all08/26/2024PHQ-2AnswerDate RecordedPatient Health Questionnaire-2 Cvsgq200Finblue mountain hospital, inc. [place] [facility] - Occupational Stress QuestionnaireAnswerDate RecordedDo you feel stress - tense, restless, nervous, or anxious, or unable to sleep at night because yourmind is troubled all the time - these days?Only a mudkbf4708/26/2024 Exercise Vital SignAnswerDate RecordedOn average, how many [...] steady place to sleep or slept in kimber[place]ter (including now)?No07/10/2023Housing Stability Vital SignAnswerDate RecordedIn the [...] RecordedSex Assigned at BirthNot on fileLegal Sex Wwiafk1109/20/2022 6:50 PM EDTGender IdentityNot on fileSexual OrientationNot on filedocumented as of this encounter Last Filed Vital Signs Vital SignReadingTime TakenCommentsBlood Pressure--Covoe940005/28/2025 10:40 AM ESTTemperature--Respiratory Djdc953907/28/2024 10:40 AM ESTOxygen Vhydzuttpz25% 05/28/2025 10:40 AM ESTInhaled Oxygen Concentration--Ifieki552 kg (362 lb) 05/28/2025 10:40 AM LCIVolicb942.2 cm (5' 7 )05/28/2025 10:40 AM ESTBody Mass Index56.7107/28/2024 10:40 AM ESTdocumented in this encounter Progress Notes * Rain Souza MD - 05/28/2025 10:30 AM EST Images from the original note were not included. Mitzi Macias is a 54 y.o. female No ref. provider found presents with chief complaint of Diabetes and Follow-up HPI: IM 05/2025 follow up visit on 05/28/2025 , A1c in the office 7.6 , bg 123, on lantus 58 units bid, lispro 8-10-12 units plus ISS, mounjaro 15 mg weekly, farxia 5 mg daily. 01/2025 follow up visit on 01/29/2025 , A1c in the office 8.4 , bg 121, on lantus 58 units bid, lispro 8-10-12 units plus ISS, mounjaro 15 mg weekly, farxia 5 mg daily. 10/2024 follow up visit on 10/08/2024 , [...] 96, on lantus 58 units bid, lispro 7-12-32nnatd plus ISS, Trulicity 4.5 mg weekly. meter give us error during download IM 03/2022 follow up visit on 03/14/2022, A1c in the office 9.4, bg 142, on lantus 58 units bid, lispro 4-86-18vdvqh plus ISS, Trulicity 4.5 mg weekly. lab [...] 25 mg, Oral, 2 times daily HYDROcodone-acetaminophen (Bill[place]) 5-325 MG tablet 1 tablet, 3 times daily PRN HySept 0.25 % external solution APPLY TO GAUZE AND PLACE ON RIGHT LOWER LEG ULCERS, CHANGE DAILY insulin glargine (Lantus SoloStar) 100 UNIT/ML pen INJECT 58 UNITS SUBCUTANEOUSLY TWICE A DAY insulin glargine (LANTUS) 58 Units, Subcutaneous, 2 times daily Insulin Lispro (HUMALOG KWIKPEN SC) 3 times daily before meals ipratropium-albuterol (Duo-Neb) 0.5-2.5 mg/3 mL nebulizer solution Daily PRN lisinopril 20 mg, Oral, Daily Mounjaro 15 mg, Subcutaneous, Weekly naloxone (NARCAN) 4 mg, As needed nicotine [...] BY MOUTH TWICE A DAYFOR 14 DAYS varenicline (Chantix) 1 MG tablet TAKE 1 TABLET BY MOUTH IN THE MORNING AND 1 TABLET BEFORE BEDTIME. TAKE WITH FULL GLASS OF WATER. ALLERGIES: No Known Allergies Past Medical History: Diagnosis Date Abnormal chest CT Albuminuria 09/17/2023 Angiomyolipoma Anxiety and depression 07/10/2023 Asthma ([facility]) 07/10/2023 Body mass index (BMI) 50.0-59.9, adult ([facility]) Cellulitis of left lower extremity Cervical cancer ([facility]) 09/17/2023 Chronic pain of both knees 09/17/2023 COPD (chronic obstructive pulmonary disease) ([facility]) 07/10/2023 COPD exacerbation (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) Lower extremity edema 09/17/2023 Mixed hyperlipidemia Morbid (severe) obesity due to excess calories ([facility]) Obstructive sleep apnea 07/10/2023 PAD (peripheral artery disease) 09/17/2023 Pancreatitis ([facility]) 09/17/2023 Pneumonia 09/17/2023 Proteinuria, unspecified Pulmonary hypertension ([facility]) 09/17/2023 Radiculopathy, lumbar region 09/17/2023 Tobacco user 09/17/2023 Type 2 diabetes mellitus with complication, with long-term current use of insulin ([facility]) 07/10/2023 Unilateral primary osteoarthritis, right hip [...] no Lab Results Component Value Date HGBA1C 7.6 05/28/2025 HGBA1C 8.4 01/29/2025 HGBA1C 7.4 10/08/2024 Lab Results Component Value Date GLU 123 05/28/2025 GLU 121 01/29/2025 GLU 97 10/08/2024 08/27/2024 5:44 PM 10/08/2024 11:21 AM 10/27/2024 2:11 PM 12/09/2024 10:19 AM 01/26/2025 6:11 PM 01/29/2025 9:48 AM 05/28/2025 10:40 AM Vitals BMI 57.31 kg/m2 55.91 kg/m2 56.51 kg/m2 58.64 kg/m2 56.38 kg/m2 56.7 kg/m2 BSA (m2) 2.8 m2 2.77 m2 2.78 m2 2.83 m2 2.78 m2 2.78 m2 Systolic 134 130 132 150 126 130 Diastolic 76 70 74 76 82 70 Heart Rate 83 70 75 71 81 72 71 SpO2 91 % 91 % 90 % 88 % 90 % 84 % 93 % Temp 98 ??F 98.7 ??F 98 ??F 98.5 ??F Resp 18 16 18 20 20 16 16 Height (in) 5' 7 5' 7 5' 7 5' 7 Weight (lb) 365.9 357 360.8 374.4 360 362 Visit Report Report Report Report Report Report Report Report ASSESSMENT AND PLAN: Assessment/Plan Diagnoses and all orders for this visit: Type 2 diabetes mellitus with hyperglycemia, with long-term current use of insulin (HCC) - POCT glucose manually resulted - POCT glycosylated hemoglobin (Hb A1C) docked device We will continue with Lantus 58 units bid, lispro 02-16-12 according to meal size, Mounjaro 15 mg once weekly, Farxiga 5 mg once a day. Encounter for dietary consultation Vitamin D deficiency Primary hypertension Insulin long-term use (HCC) Hyperlipemia, mixed Microalbuminuria Type 2 diabetes mellitus with other circulatory complications ([facility]) - Tirzepatide (Mounjaro) 15 MG/0.5ML solution auto-injector; Inject 15 mg under the skin 1 (one) time per week Follow up in about 4 months (around 09/25/2025). documented in this encounter Plan of Treatment DateTypeDepartmentCare Team (Latest Contact Info)Miebswjjglt74/19/2026 10:50 AM EDTOffice Visit [facility] [address] [place] [address] Rain Souza MD [address] [place] [address] documented as of this encounter Procedures Procedure NamePriorityDate/TimeAssociated DiagnosisCommentsPOCT GLYCOSYLATED HEMOGLOBIN (HGB A1C)Lhmalos8005/28/2025 10:46 AM EST Type 2 diabetes mellitus with hyperglycemia, with long-term current use of insulin (HCC) POCT BSDYMMMKyeueol17/20/2025 10:46 AM EST Type 2 diabetes mellitus with hyperglycemia, with long-term current use of insulin (HCC) documented in this encounter Results * POCT glycosylated hemoglobin (Hb A1C) docked device (05/28/2025 10:46 AM EST) ComponentValueRef RangeTest MethodAnalysis TimePerformed AtPathologist SignatureHemoglobin A1C7.6Specimen (Source)Anatomical Location / Laterality Collection Method / VolumeCollection TimeReceived TimeBloodVenous blood specimen / Siihnhi2605/28/2025 10:46 AM EST Narrative Authorizing ProviderResult TypeResult StatusRain Souza MDPOINT OF CARE TEST ENTER/EDIT ORDERABLESFinal Result * POCT glucose manually resulted (05/28/2025 10:46 AM EST)ComponentValueRef RangeTest MethodAnalysis TimePerformed AtPathologist SignatureGlucose Blood, MLH838si/dLSpecimen (Source)Anatomical Location / LateralityCollection Method / VolumeCollection TimeReceived TimeBloodCapillary blood specimen / Unknown 05/28/2025 10:46 AM EST Narrative Authorizing ProviderResult TypeResult StatusRain Souza MDPOINT OF CARE TEST ENTER/EDIT ORDERABLESFinal Result documented in this encounter Visit Diagnoses Diagnosis Type 2 diabetes mellitus with hyperglycemia, with long-term current use of insulin (HCC)- Primary Encounter for dietary consultation Vitamin D deficiency Primary hypertension Unspecified essential hypertension Insulin long-term use (HCC) Encounter for long-term (current) use of insulin Hyperlipemia, mixed Mixed hyperlipidemia Microalbuminuria Proteinuria Type 2 diabetes mellitus with other circulatory complications (HCC) documented in this encounter Additional Health Concerns AssessmentNoted TimePHQ-9 Depression Total Score: 307 10:08 AM EDT documented as of this encounter Care Teams Team MemberRelationshipSpecialtyStart DateEnd Date Ty Amin MD [address] [place] [address] PCP - GeneralFamily Medicine09/20/23 Mckayla Blas NP [address] [place] [address] Nurse PractitionerFamily Medicine09/20/23documented as of this encounter
--- OUTSIDE RECORDS SUMMARY | 2025-06-03 13:52 | XMS_ITS | Continuity of Care Document ---
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 Role Phone Mckayla Blas [employer]-C Primary Care Provider Price Arora DO Attending Provider Flynn Urias DPM Attending Provider [phone] Mckayla Blas [employer]-C Attending Provider Sly Lucas DO Attending Provider Care Teams Patient Care Team Team Status: Active Member Role/Relationship Status Dates Mckayla Blas [employer]ER-C Primary Care Provider Active Visit Care Team Team Status: Active Member Role/Relationship Status Dates Mckayla Blas [employer] TE[employer]ER-C Primary Care Provider Active Start: March 25, 2025 Price Arora DOAttbrandee ProviderActiveStart: March 25, 2025 Visit Care Team Team Status: Active Member Role/Relationship Status Dates Mckayla Blas [employer]ER-C Primary Care Provider Active Start: March 26, 2025 Abel Wells ProviderActiveStart: March 26, 2025 Visit Care Team Team Status: Inactive Member Role/Relationship Status Dates Mckayla Blas [employer] TE[employer]ER-C Primary Care Provider Active Start: April 06, 2025 End: April 06, 2025Raheel Arevalo ProviderActiveStart: April 06, 2025 End: April 06, 2025 Visit Care Team Team Status: Inactive Member Role/Relationship Status Dates Mckayla Blas NP-C Primary Care Provider Active Start: April 29, 2025 End: April 29, 2025Raheel Arevalo ProviderActiveStart: April 29, 2025 End: April 29, 2025 Visit Care Team Team Status: Active Member Role/Relationship Status Dates BAILEE ArevaloC Primary Care Provider Active Start: May 24, 2025 Rodger Kaufman ProviderActiveStart: May 24, 2025 Patient Care Team Team Status: Inactive Member Role/Relationship Status Dates Mckayla Blas NP-Faiza Primary Care Provider Active Start: June 03, 2025 End: June 03, 2025Raheel Arevalo ProviderActiveStart: June 03, 2025 End: June 03, 2025 Chief Complaint and Reason for Visit Chief Complaint Admit Date FollowUp April 06, 2025 3:08pm 3M April 29, 2025 5 :50pm [facility] ER F/U BACK PAIN June 03, 2025 6:08pm Reason for Visit Admit Date Abdominal wall cellulitis March 3:08pm Morbid (severe) obesity due to excess ca lories April 06, 2025 3:08pm Nicotine dependence, cigaret garrett, with unspecified nicotine-induced disorders April 06, 2025 3:08pm Type 2 diabetes mellitus wit h complication, with long-term current use of April 06, 2025 3:08pm Venous insufficiency April 06 3:08pm Abdominal wall cellulitis April 29, 2025 5:50pm COPD (chronic obstructive pulmonary dise ase) April 29, 2025 5:50pm Encounter for screening mamm ogram for malignant neoplasm of breast April 29, 2025 5:50pm HTN (hypertension) April 29, 2025 5 :50pm Major depression April 29, 2025 5 :50pm Morbid (severe) obesity due to excess ca lories April 29, 2025 5:50pm Nicotine dependence, cigaret garrett, with unspecified nicotine-induced disorders April 29, 2025 5:50pm Type 2 diabetes mellitus wit h complication, with long-term current use of April 29, 2025 5:50pm Venous insufficiency April 29, 2025 5:50pm COPD (chronic obstructive pulmonary dise ase) June 03, 2025 6:08pm HTN (hypertension) June 03, 2025 6:08pm Morbid (severe) obesity due to excess ca lories June 03, 2025 6:08pm Nicotine dependence, cigaret garrett, with unspecified nicotine-induced disorders June 03, 2025 6:08pm Shingles June 03, 2025 6:08pm Type 2 diabetes mellitus wit h complication, with long-term current use of June 03, 2025 6:08pm Venous insufficiency June 03, 2025 6:08pm Allergies, Adverse Reactions, Alerts Allergen Type Severity Reaction Last Updated Verified Status No Known Allergies Allergy Unknown April 01, 2025 7:02amYesActive Social History Smoking Status Status Start Date [...] Problems Problem Diagnosis/Recorded Date Onset Date Stat Other headache syndrome April 01, 2025 7:23am Un known Active Encounter for smoking cessat ion counseling April 01, 2025 7:18am Unknown Active Candidiasis of breast April 01, 2025 7:06am Unkn own Active Hyperpigmentation of skin April 01, 2025 7:19am Unknown Active RAGHU positive April 01, 2025 7:03am Unknown Active Mixed incontinence April 01, 2025 7:21am Unknown Active Adrenal mass 1 cm to 4 cm in diameter April 01, 2025 7:02am Unknown Active Encounter for subsequent [facility] wellness visit (AWV) in Medicare patient April 01, 2025 7:18am Unknown Active Critical limb ischemia of ri ght lower extremity April 01, 2025 7:17am Unknown Active Major depression April 29, 2025 5:37pm Unknown Active Insomnia April 01, 2025 7:20am Unknown Active DANIEL (obstructive sleep apnea) April 01, 2025 7:2 3am Unknown Active Cellulitis of left lower extremity April 01 7:15am Unknown Active Morbid (severe) obesity due to excess calories April 01, 2025 7:21am Unknown 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 April 01, 2025 7:20am Unknown Active Unilateral primary osteoarth ritis, right hip April 01, 2025 7:27am Unknown Active 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 April 01, 2025 7:19am Unknown Active Non-pressure chronic ulcer o f other part of left lower leg limited to breakdown of skin April 01, 2025 7:23am Unknown Active Nicotine dependence, cigaret garrett, with unspecified nicotine-induced disorders April 02, 2025 1:08pm Unknown Active Radiculopathy, lumbar region April 01, 2025 7:24 am Unknown Active Encounter for screening mamm ogram for malignant neoplasm of breast April 01, 2025 7:18am Unknown Act leobardo Personal history of malignan t neoplasm of cervix uteri April 01, 2025 7:20am Unknown Active Diabetic neuropathy April 01, 2025 7:17am Unknow n Active Abdominal wall cellulitis April 06, 2025 5:07pm Unknown Active Non-seasonal allergic rhinitis April 01, 2025 7: 23am Unknown Active Vaginal yeast infection April 01, 2025 7:28am Un known Active Shingles June 01, 2025 10:29am Unknown Active Gout April 01, 2025 7:19am Unknown Active Decreased functional mobility April 01, 2025 7:1 7am Unknown Active Antibiotic-induced yeast infection April 01 7:03am Unknown Active Cardiomegaly April 01, 2025 7:14am Unknown Active Albuminuria April 01, 2025 7:03am Unknown Active Arthritis April 01, 2025 7:04am Unknown Active Vitamin deficiency April 01, 2025 7:28am Unknown Active Myelolipoma of adrenal gland April 01, 2025 7:22 am Unknown Active Hyperlipidemia April 01, 2025 7:19am Unknown Active Kidney stone April 01, 2025 7:20am Unknown Active Chronic diastolic heart failure April 01, 2025 7 :15am Unknown Active Pancreatitis April 01, 2025 7:23am Unknown Active Proteinuria April 01, 2025 7:23am Unknown Active Localized swelling of both lower legs April 01, 2025 7:06am Unknown Active Venous insufficiency April 01, 2025 7:28am Unkno wn Active Cigarette nicotine dependence April 01, 2025 7:1 6am Unknown Active Stasis dermatitis with ulcer of right lower extremity due to peripheral venous hypertension April 01, 2025 7:24am Unknown Active Type 2 diabetes mellitus wit h complication, with long-term current use of insulin April 01, 2025 7:27am Unknown Active Chronic pain of both knees April 01, 2025 7:16am Unknown Active Body mass index (BMI) of 50- 59.9 in adult April 01, 2025 7:06am Unknown Active GERD without esophagitis April 01, 2025 7:18am U nknown Active PAD (peripheral artery disease) April 01, 2025 7 :23am Unknown Active Mild nonproliferative diabet ic retinopathy of both eyes without macular edema associated with type 2 diabetes mellitus April 01, 2025 7:21am Unknown Active COPD (chronic obstructive pu lmonary disease) April 01, 2025 7:16am Unknown Active COPD exacerbation April 01, 2025 7:16am Unknown Active HTN (hypertension) April 01, 2025 7:19am Unknown Active Vitamin D deficiency April 01, 2025 7:28am Unkno wn Active Asthma April 01, 2025 7:04am Unknown Active Medications Medication Status Dose Units Route Directions Qty Days Refills S tart Date Stop Date End Date Reason(s) Instructions Adherence Varenicline Tartrate 1 mg tablet Active 1 MG PO Twice daily 56 1September 2024 11:00pmCigarette nicotine dependence with nicotine-induced disorder Nicotine dependence, cigarettes, with unspecified nicotine-induced disorders UnknownAlbuterol Sulfate 2.5 mg /3 mL (0.083 %) solution for nebulizationActive 2.5MGINHALATIONEVERY 4-6 HOURS as neededSeptember 2024 11:00pmUnknown Ammonium Lactate 12 % wyrklqSvudmo1OMTKRCAKGSTFCZwdxkTeajcwqpc 2024 11:00pmUnknownCetirizine 10 mg cfeoejWtoggg52WIZIZdhlr as neededSeptember 2024 11:00pmUnknownAmitriptyline 25 mg ioneeqCkgwru89ORCCMmyrq at bedtime April 04, 2025 11:00pmUnknownAspirin 81 mg tablet,mkorqbwrGanrxe0EXYXO DailySept2024 11:00pmUnknownDiclofenac Sodium 75 mg tablet,delayed release (DR/EC)Wssver06OFRMYlskb dailySept2024 11:00pmUnknown Ergocalciferol (Vitamin D2) 1,250 mcg (50,000 unit) cctkfobCmjsmh07544GFBYPH every weekSept2024 11:00pmUnknownDuloxetine 60 mg capsule,delayed release(DR/EC)Sevqtu52JLRAZtewi dailySept2024 11:00pmUnknown Dapagliflozin Propanediol (Farxiga) 10 mg gbgaucIidsst81QJBQZditiKdedbjuqb 27th, 2025 11:00pmUnknownFurosemide 40 mg ylcbykRedimm41PXOBYrloiRdsmquvqy 27th, 2025 11:00pmUnknownIpratropium-Albuterol 0.5 mg-3 mg(2.5 mg base)/3 mL solution for sihunwncrpmwAofcnt2IDKVKAUDJLWACqo times daily as neededApril 04, 2025 11:00pmUnknownLisinopril 20 mg khubatUfjrkj02ITHPVyhqeQpcououui 27th, 2025 11:00pmUnknownHydralazine 25 mg slznnvFilizn34DHWVGqbjs dailySept2024 11:00pmUnknownOmeprazole 20 mg capsule,delayed release(DR/EC)Vsmlvm06VZJH DailySept2024 11:00pmUnknownInsulin Glargine (Lantus Solostar U-100 Insulin) 100 unit/mL (3 mL) insulin bfzElreza68MMQTXLFUUQQrhwx dailySept2024 11:00pmUnknownRoflumilast 500 mcg ujdbiyYnpbnr944QBHKVYtdfaTqumhscfo 27th, 2025 11:00pmUnknownSimvastatin 10 mg ccggpwSyvvjc56CWKMIdgkg at bedtime April 04, 2025 11:00pmUnknownBaclofen 10 mg fzcznfYtggsw23RNTSZanrd 8 hours as neededApril 04, 2025 11:00pmUnknownPregabalin 150 mg capsule Wpibxv049GVOLNvkbnNcgkhtugw 27th, 2025 11:00pmUnknownPregabalin (Lyrica) 300 mg mtwqwotSprwse679WGOIZoqzn dailyApril 04, 2025 11:00pmUnknownTirzepatide (Mounjaro) 15 mg/0.5 mL pen ycqjcmzhDsjbic39KYMDWFANvtwpi weekSept2024 11:00pmUnknownNaloxone (Narcan) 4 mg/actuation spray,non-eyzilgsJsfgvp1JV GXAJJPFBCCI7F as neededApril 04, 2025 11:00pmspray 1 dose into ONE nostril; alternate nostrils w each dose until help arrivesUnknownValacyclovir 1 gram nanwksQonklv5557PTZUHcmbu 8 xinmi816Leiinzdg2024 12:00amHerpes zoster Zoster without complicationsUnknownInsulin Glargine (Lantus U-100 Insulin) 100 unit/mL ZnbzchyiLmxvykilwerc50OJKMOVCQVOVlanr dailyJune 2017 11:00pm April 05, 2025 11:53amHydrocodone-Acetaminophen (Pitcher) 5-325 mg Tablet Lelovu0PWOPSXFNCF 4-6 HOURS as needed for PainJune 2017 11:00pmUnknown Potassium Chloride (Klor-Con 10) 10 mEq Tablet Extended HukijucKjxcvithrvcg21IWR POTwice dailyJune 2017 11:00pmApril 05, 2025 11:56amSimvastatin 20 mg PmdegmGsvaqiljrwvv69FHDMMhgsj eveningJune 2017 11:002024 12:00pmFurosemide (Lasix) 20 mg QoyhutIganqvegohzj70BSLWPophvYygz 2017 11:00pmApril 05, 2025 11:54amNortriptyline 50 mg GuofmwqAytagtsvdbvg59PCPC Daily at bedtimeJune 2017 11:00pmApril 05, 2025 11:53amInsulin Lispro (Humalog Kwikpen Insulin) 100 unit/mL Insulin PenActive0.ROUTE.COMPLEXJune 2017 11:00pm4U <120, 8U >120 AT MEAL TIME; QIDUnknownPregabalin (Lyrica) 300 mg CskggnmLhducopwylxd241ZJOBUmjvp dailyJune 2017 11:00pmSeptember 2024 11:55amNaproxen 500 mg dycivwNftadojxpkoz180IUWZXzzzb cevch978Tneg 2017 11:00pmSeptember 2024 11:53amadminister with food or milkHydrocodone- Acetaminophen (Pitcher) 5-325 mg yaoimvBwqeqklselwf7KVKCWM7L592Vjou 2017April 05, 2025 11:52amFracture of humerus painFurosemide (Lasix) 20 mg sfscftTdegiz17FLWKJxinf as neededSept2024 11:50amUnknownPotassium Chloride (Klor-Con 10) 10 mEq tablet extended xqydlhaVqedaw48ALKPCJbvozByfafcnfa 2024 11:55amUnknown Relevant Diagnostic Tests and/or Laboratory Data Laboratory Results Test Collection Date/Time Result Date/Time Result Interpretation Reference Range Result Comment Performing Site Basophils # (Auto) March 25, 2025 4:12pm March 25, 2025 4:12pm 0.1 10 3/uL 0.0-0.1Anion GapSept2024 4:12pmSept2024 4:12pm5.1Urine Culture ReflexedSept2024 4:16pmNOErythrocyte Sedimentation Rate March 26, 2025 11:12amSept2024 11:12am48 mm/hrAbove high normal<=30C-Reactive Protein, QuantitativeSept2024 11:12amSept2024 11:12am3.94 mg/dLAbove high normal<=0.50Anion GapSept2024 11:12amSeptember 2024 11:12am8.7Basophils # (Auto)March 26, 2025 11:12amSeptember 2024 11:12am0.1 10 3/uL0.0-0.1Anion GapNov2024 9:52amNovember 2024 9:52am10.0Basophils # (Auto)May 24, 2025 9:52amNovember 2024 9:52am0.1 10 3/uL0.0-0.1Basophils (%) (Auto)March 25, 2025 4:12pmSept2024 4:12pm0.4 %0.2-2.0BUN/Creatinine Ratio March 25, 2025 4:12pmSept2024 4:12pm16.3Urine Other Casts March 25, 2025 4:16pmSEEN #/LPFAbnormal (applies to non-numeric results) NONE SEENAlbuminSept2024 11:12amSept2024 11:12am2.8 g/dL Below low normal3.4-5.0Basophils (%) (Auto)March 26, 2025 11:12amSeptember 2024 11:12am0.6 %0.2-2.0Albumin/Globulin RatioNovember 2024 9:52am May 24, 2025 9:52am0.7Basophils (%) (Auto)May 24, 2025 9:52am May 24, 2025 9:52am0.7 %0.2-2.0Eosinophils # (Auto)March 25, 2025 4:12pmSeptember 2024 4:12pm0.3 10 3/uL0.0-0.7Blood Urea NitrogenSept2024 4:12pmSept2024 4:12pm14.0 mg/dL7.0-18.0Urine Other CrystalsSeptember 2024 4:16pmNone Seen #/HPFNone SeenBUN/Creatinine Ratio March 26, 2025 11:12amSept2024 11:12am21.7Eosinophils # (Auto) March 26, 2025 11:12amSeptember 2024 11:12am0.3 10 3/uL0.0-0.7 AlbuminNovember 2024 9:52amNovember 2024 9:52am3.2 g/dLBelow low normal3.4-5.0Eosinophils # (Auto)May 24, 2025 9:52amNovember 2024 9:52am0.3 10 3/uL0.0-0.7Eosinophils (%) (Auto)March 25, 2025 4:12pm March 25, 2025 4:12pm2.4 %0.9-7.0Calcium LevelSeptember 2024 4:12pm March 25, 2025 4:12pm9.2 mg/dL8.5-10.1Urine BacteriaSeptember 2024 4:16pmTRACE #/HPFAbnormal (applies to non-numeric results)NONE SEENBlood Urea NitrogenSeptember 2024 11:12amSeptember 2024 11:12am15.0 mg/dL 7.0-18.0Eosinophils (%) (Auto)March 26, 2025 11:12amSeptember 2024 11:12am2.7 %0.9-7.0Alkaline PhosphataseNovember 2024 9:52amNovember 2024 9:52am75 U/H84-225Rijliolheyl (%) (Auto)May 24, 2025 9:52amNovember 2024 9:52am2.4 %0.9-7.0HematocritSeptember 2024 4:12pmSeptember 2024 4:12pm56.6 %Above high onyowu75.0-48.0Chloride LevelSeptember 2024 4:12pmSept2024 4:94zk226 mmol/Q76-542Coyxy BilirubinSeptember 2024 4:16pmNEGATIVENEGATIVECalcium LevelSeptember 2024 11:12am March 26, 2025 11:12am8.6 mg/dL8.5-10.1HematocritSeptember 2024 11:12amSeptember 2024 11:12am52.5 %Above high .0-48.0Alanine Aminotransferase (ALT/SGPT)May 24, 2025 9:52amNovember 2024 9:52am 17 U/M70-40TsyxydfxmfLssijyes 2024 9:52amNovemb2024 9:52am58.3 % Above high nfjpka09.0-48.0HemoglobinSeptember 2024 4:12pmSeptember 2024 4:12pm17.4 g/dLAbove high yhjrfy94.0-16.0Carbon Dioxide LevelSeptember 2024 4:12pmSeptember 2024 4:12pm36.9 mmol/LAbove high normal 21.0-32.0Urine Occult BloodSeptember 2024 4:16pmNEGATIVENEGATIVEChloride LevelSeptember 2024 11:12amSeptember 2024 11:74uq428 mmol/L98-107 HemoglobinSeptember 2024 11:12amSeptember 2024 11:12am16.1 g/dLAbove high .0-16.0Aspartate Amino Transf (AST/SGOT)May 24, 2025 9:52am May 24, 2025 9:52am12 U/LBelow low galrrv68-30OqhbxyqztkLskayyiw 16th, 2025 9:52amNovember 2024 9:52am18.7 g/dLAbove high pdlibg60.0-16.0Immature Granulocyte # (Auto)March 25, 2025 4:12pmSeptember 2024 4:12pm0.04 10 3/uLAbove high normal0.00-0.03CreatinineSept2024 4:12pmSeptember 2024 4:12pm0.86 mg/dL0.55-1.02Urine AppearanceSept2024 4:16pm CLEARCLEARCarbon Dioxide LevelSeptember 2024 11:12amSeptember 2024 11:12am31.5 mmol/L21.0-32.0Immature Granulocyte # (Auto)March 26, 2025 11:12amSeptember 2024 11:12am0.03 10 3/uL0.00-0.03BUN/Creatinine Ratio May 24, 2025 9:52amNovember 2024 9:52am15.5Immature Granulocyte # (Auto)May 24, 2025 9:52amNovember 2024 9:52am0.04 10 3/uLAbove high normal0.00-0.03Immature Granulocyte % (Auto)March 25, 2025 4:12pmSeptember 2024 4:12pm0.3 %0.0-0.5Estimated GFR ()March 25, 2025 4:12pmSept2024 4:12pm>60>=60 mL/min/1.73m 2Urine ColorSept2024 4:16pmLT. YELLOWYELLOWCreatinineSeptember 2024 11:12amSeptember 2024 11:12am0.69 mg/dL0.55-1.02Immature Granulocyte % (Auto)March 26, 2025 11:12amSeptember 2024 11:12am0.3 %0.0-0.5Blood Urea Nitrogen May 24, 2025 9:52amNovember 2024 9:52am15.0 mg/dL7.0-18.0Immature Granulocyte % (Auto)May 24, 2025 9:52amNovember 2024 9:52am0.3 % 0.0-0.5Lymphocytes # (Auto)March 25, 2025 4:12pmSept2024 4:12pm3.1 10 3/uL1.2-3.8Estimated GFR (Non- AmericanSept2024 4:12pmSeptember 2024 4:12pm>60>=60 mL/min/1.73m 2Urine Glucose (UA) March 25, 2025 4:16pmNEGATIVE mg/dLNEGATIVEEstimated GFR ()March 26, 2025 11:12amSept2024 11:12am>60>=60 mL/min/1.73m 2Lymphocytes # (Auto)March 26, 2025 11:12amSeptember 2024 11:12am2.7 10 3/uL1.2-3.8Calcium LevelNovember 2024 9:52amNovember 2024 9:52am9.3 mg/dL8.5-10.1Lymphocytes # (Auto)May 24, 2025 9:52am May 24, 2025 9:52am2.7 10 3/uL1.2-3.8Lymphocytes (%) (Auto)March 25, 2025 4:12pmSept2024 4:12pm26.4 %20.5-60.0Glucose Level March 25, 2025 4:12pmSept2024 4:06lb046 mg/dLAbove high normal 74-106Urine Hyaline CastsSept2024 4:16pmRAREEstimated GFR (Non- AmericanSept2024 11:12amSept2024 11:12am>60>=60 mL/min/1.73m 2Lymphocytes (%) (Auto)March 26, 2025 11:12amSept2024 11:12am27.2 %20.5-60.0Chloride LevelNov2024 9:52amNovember 2024 9:85gk410 mmol/P96-996Ctpfkkbsggp (%) (Auto)May 24, 2025 9:52amNovember 2024 9:52am22.9 %20.5-60.0Mean Corpuscular Hemoglobin March 25, 2025 4:12pmSept2024 4:12pm27.5 pg26.7-34.0Potassium LevelSept2024 4:12pmSept2024 4:12pm4.0 mmol/L3.5-5.1 Urine KetonesSeptember 2024 4:16pmNEGATIVE mg/dLNEGATIVEGlucose Level March 26, 2025 11:12amSept2024 11:89sw012 mg/dLAbove high -089Jzau Corpuscular HemoglobinSeptember 2024 11:12amSept2024 11:12am27.2 pg26.7-34.0Carbon Dioxide LevelNovember 2024 9:52am May 24, 2025 9:52am35.0 mmol/LAbove high wxpunf08.0-32.0Mean Corpuscular HemoglobinNovember 2024 9:52amNovemb2024 9:52am27.5 pg26.7-34.0 Mean Corpuscular Hemoglobin ConcentSeptember 2024 4:12pmSept2024 4:12pm30.7 g/dL29.9-35.2Sodium LevelSeptember 2024 4:12pmSeptember 2024 4:49gx211 mmol/J524-816Sfppk Leukocyte EsteraseSeptember 2024 4:16pmNEGATIVENEGATIVEPotassium LevelSeptember 2024 11:12amSept2024 11:12am4.2 mmol/L3.5-5.1Mean Corpuscular Hemoglobin ConcentSeptember 2024 11:12amSept2024 11:12am30.7 g/dL29.9-35.2CreatinineNovember 2024 9:52amNovember 2024 9:52am0.97 mg/dL0.55-1.02Mean Corpuscular Hemoglobin ConcentNovember 2024 9:52amNovember 2024 9:52am32.1 g/dL 29.9-35.2Mean Corpuscular VolumeSeptember 2024 4:12pmSeptember 2024 4:12pm89.4 fL81.0-99.0Urine MucusSeptember 2024 4:16pmTRACEAbnormal (applies to non-numeric results)NONE SEENSodium LevelSeptember 2024 11:12amSeptember 2024 11:35ph288 mmol/G850-959Ylid Corpuscular Volume March 26, 2025 11:12amSeptember 2024 11:12am88.7 fL81.0-99.0 Estimated GFR ()May 24, 2025 9:52amNovember 2024 9:52am>60>=60 mL/min/1.73m 2Mean Corpuscular VolumeNovember 2024 9:52am May 24, 2025 9:52am85.9 fL81.0-99.0Monocytes # (Auto)March 25, 2025 4:12pmSeptember 2024 4:12pm0.6 10 3/uL0.3-0.8Urine NitriteSeptember 2024 4:16pmNEGATIVENEGATIVEPhosphorus LevelSeptember 2024 11:12amSeptember 2024 11:12am3.5 mg/dL2.6-4.7Monocytes # (Auto)March 26, 2025 11:12am March 26, 2025 11:12am0.5 10 3/uL0.3-0.8Estimated GFR (Non- AmericanNovember 2024 9:52amNovember 2024 9:52am60>=60 mL/min/1.73m 2Monocytes # (Auto)May 24, 2025 9:52amNovember 2024 9:52am0.6 10 3/uL0.3-0.8Monocytes (%) (Auto)March 25, 2025 4:12pmSeptember 2024 4:12pm5.2 %1.7-12.0Urine pHSeptember 2024 4:16pm8.05.0-9.0Monocytes (%) (Auto)March 26, 2025 11:12amSeptember 2024 11:12am5.2 %1.7-12.0 GlobulinNovember 2024 9:52amNovember 2024 9:52am4.8 g/dLMonocytes (%) (Auto)May 24, 2025 9:52amNovember 2024 9:52am5.0 %1.7-12.0Mean Platelet VolumeSeptember 2024 4:12pmSeptember 2024 4:12pm12.4 fL 9.5-13.5Urine ProteinSeptember 2024 4:31mo789 mg/dLAbnormal (applies to non-numeric results)NEG/TRACEMean Platelet VolumeSeptember 2024 11:12am March 26, 2025 11:12am12.8 fL9.5-13.5Glucose LevelNov2024 9:52amNovember 2024 9:36cz148 mg/dLAbove high aeglcd76-651Kackkyastid # (Auto)May 24, 2025 9:52amNovember 2024 9:52am8.2 10 3/uLAbove high normal1.4-6.5Neutrophils # (Auto)March 25, 2025 4:12pmSeptember 2024 4:12pm7.7 10 3/uLAbove high normal1.4-6.5Urine RBCSeptember 2024 4:14os9-7 #/HPF0-2Neutrophils # (Auto)March 26, 2025 11:12amSeptember 2024 11:12am6.4 10 3/uL1.4-6.5Potassium LevelNovember 2024 9:52amNovember 2024 9:52am4.0 mmol/L3.5-5.1Neutrophils (%) (Auto)May 24, 2025 9:52am May 24, 2025 9:52am68.7 %43.0-75.0Neutrophils (%) (Auto)March 25, 2025 4:12pmSept2024 4:12pm65.3 %43.0-75.0Urine Specific [place] March 25, 2025 4:16pm1.0201.005-1.025Neutrophils (%) (Auto)March 26, 2025 11:12amSeptember 2024 11:12am64.0 %43.0-75.0Sodium LevelNovember 2024 9:52amNovember 2024 9:74hw540 mmol/Y984-510Giktgdbz Count May 24, 2025 9:52amNovemb2024 9:06xx644 10 3/uLBelow low normal 150-450Platelet CountSept2024 4:12pmSept2024 4:93ik962 10 3/iB638-472Gtrxe Squamous Epithelial CellsSept2024 4:16pmFEW #/LPFAbnormal (applies to non-numeric results)NONE/RAREPlatelet CountSept2024 11:12amSeptember 2024 11:11gg324 10 3/uLBelow low budnml899-898 Total BilirubinNov2024 9:52amNovember 2024 9:52am0.7 mg/dL 0.2-1.0Red Blood CountNov2024 9:52amNovemb2024 9:52am6.79 10 6/uLAbove high normal4.20-5.40Red Blood CountSeptember 2024 4:12pm March 25, 2025 4:12pm6.33 10 6/uLAbove high normal4.20-5.40Urine UrobilinogenSept2024 4:16pm1.0 EU/dL0.2-1.0Red Blood CountSeptember 2024 11:12amSeptember 2024 11:12am5.92 10 6/uLAbove high normal 4.20-5.40Total ProteinNov2024 9:52amNovember 2024 9:52am8.0 g/dL6.4-8.2Red Cell Distribution WidthNov2024 9:52amNove2024 9:52am20.6 %Above high lcatnt39.0-15.0Red Cell Distribution WidthSeptember 2024 4:12pmSeptember 2024 4:12pm16.4 %Above high vpdgzo80.0-15.0 Urine WBCSeptember 2024 4:05kc8-3 #/HPFAbnormal (applies to non-numeric results)NONE SEENRed Cell Distribution WidthSeptember 2024 11:12am March 26, 2025 11:12am16.4 %Above high tmpydd39.0-15.0Corrected White Blood CountNovember 2024 9:52amNovember 2024 9:52am11.9 10 3/uLAbove high normal4.0-11.0Corrected White Blood CountSeptember 2024 4:12pm March 25, 2025 4:12pm11.8 10 3/uLAbove high normal4.0-11.0Corrected White Blood CountSeptember 2024 11:12amSeptember 2024 11:12am10.0 10 3/uL 4.0-11.0 Vital Signs Vital Reading Result Reference Range Collection Date/Time Body Temperature 98.1 [degF] 97.6-99.0 March 102024 2:37pm Heart Rate 81 /min 60-100 April 06, 2025 2:37pm Respiratory rate 20 /min 12-March 102024 2:37pm Oxygen saturation by Pulse oximetry 92 % 95-100 April 06, 2025 2:37pm BP Systolic 146 mm[Hg] 100-140 April 06, 2025 2:37pm BP Diastolic 84 mm[Hg] 60-100 April 06, 2025 2:37pm Height 65 [in_i] April 29, 2025 4:58xaQpvvdx877.18 kgOctober 2024 4:58pmBody Zbtrgjidvec62.1 [degF]97.6-99.0October 2024 4:58pmHeart Rate84 /ezt53-263 April 29, 2025 4:58pmRespiratory rate20 /vmj56-27Owexeda 22nd, 2025 4:58pm Oxygen saturation by Pulse byepwewa56 %95-100October 2024 4:58pmBP Gshagmbf086 mm[Hg]100-140[facility] 4:58pmBP Poenmuepy92 mm[Hg]60-100 April 29, 2025 4:58pmBMI (Body Mass Index)61.0 kg/p4Pamitod 2024 4:02dkLbxzuf08 [in_i]June 03, 2025 6:12pmBody Mvqgmjynhpx37.1 [degF] 97.6-99.0Nov[facility] 2024 6:12pmHeart Rate82 /cfp64-855Wbhvybcf 26th, 2025 6:12pmRespiratory rate18 /cyp99-67Edzzrrco 26th, 2025 6:12pmOxygen saturation by Pulse evisknuo45 %95-100June 03, 2025 6:12pmBP Wwkiansu821 mm[Hg]100-140 June 03, 2025 6:12pmBP Xdwmabffp80 mm[Hg]60-100Nov2024 6:12pm Advance Directives Advance Directive Response Recorded Date/ Time Advance Directives No December 13 8 2:20pm Insurance Providers Guarantor Mitzi Macias Address [address] [address]Contact Info.Home Phone: Coverage Status Update:2025 Payer Group Member ID Coverage Type Subscriber Relationship to Subscriber Effective Date Expiration Date Medicaid Id: [id number] L Daniels Id: [id number] [address] [place] [address] Home Phone: Email: DECLINED 16SelfUnited [facility] Medicaid [id number] L Daniels Id: [id number] [address] [place] [address] Home Phone: Email: DECLINED 16SelfMedicare Id: [id number] L Daniels Id: [id number] [address] [place] [address] Home Phone: Email: DECLINED [employer] [place] [employer] [id number] Macias Id: [id number] [address] [facility] [address] Home Phone: Email: DECLINED [employer]Self[employer] Dual Compl [id number] L Daniels Id: [id number] [address] [facility] [address] Home Phone: Email: DECLINED 16Self Encounters Encounter Location(s) Arrival/Admit Date Discharge/Departure Date Discharge/Departure Disposition Provider(s) Non-patient / Non-visit -[facility] Professionjuvenal [place] March 25, 2025 5:16pm Braulio Steele-patient / Gvb-twfnu-[facility] 2024 12:12pmLDEIDRA Thorneeparted Physician/Provider Office Visit -[facility] Family Medicine [facility]2024 3:08pmSept2024 4:00pm Discharged to home care or self care (routine discharge)MAURY Arevalo Departed Physician/Provider Office Visit-[facility] Family Medicine [facility] 2024 6:29pmDischarged to home care or self care (routine discharge)Mk Arevalo-patient / Rlx-twzfy-Lhivh [facility] 2024 9:52am([place]) LUIS Kaufmaneparted Physician/Provider Office Visit-[facility] Family Medicine [facility] 2024 6:08pmNovking[facility] 2024 6:51pmDischarged to home care or self care (routine discharge)MAURY Arevalo Recent Diagnosis Onset Date Admit Date Abdominal wall cellulitis Unknown 2024 3:08pm Morbid (severe) obesity due to excess calories U nknown April 06, 2025 3:08pm Nicotine dependence, cigaret garrett, with unspecified nicotine-induced disorders Unknown April 06, 2025 3:08pm Type 2 diabetes mellitus wit h complication, with long-term current use of Unknown April 06, 2025 3:0 8pm Venous insufficiency Unknown March 102024 3:08pm Abdominal wall cellulitis Unknown Octobe r 2024 5:50pm COPD (chronic obstructive pulmonary disease) Unk nown April 29, 2025 5:50pm Encounter for screening mamm ogram for malignant neoplasm of breast Unknown April 29, 2025 5:50pm HTN (hypertension) Unknown April 29, 2025 5:50pm Major depression Unknown April 29 025 5:50pm Morbid (severe) obesity due to excess calories U nknown April 29, 2025 5:50pm Nicotine dependence, cigaret garrett, with unspecified nicotine-induced disorders Unknown April 29 025 5:50pm Type 2 diabetes mellitus wit h complication, with long-term current use of Unknown April 29, 2025 5:50p m Venous insufficiency Unknown April 5:50pm COPD (chronic obstructive pulmonary disease) Unk nown June 03, 2025 6:08pm HTN (hypertension) Unknown May 6:08pm Morbid (severe) obesity due to excess calories U nknown June 03, 2025 6:08pm Nicotine dependence, cigaret garrett, with unspecified nicotine-induced disorders Unknown June 03, 2025 6:08pm Shingles Unknown June 03 025 6:08pm Type 2 diabetes mellitus wit h complication, with long-term current use of Unknown June 03, 2025 6:08 pm Venous insufficiency Unknown June 032024 6:08pm Assessments Diagnosis Onset Date Resolution Status Admit Date Abdominal wall cellulitis acuteSeptember 2024 3:08pmMorbid (severe) obesity due to excess calories acuteSeptember 2024 3:08pmNicotine dependence, cigarettes, with unspecified nicotine-induced disordersacuteSeptember 2024 3:08pmType 2 diabetes mellitus with complication, with long-term current use ofacuteSeptember 2024 3:08pmVenous insufficiencyacuteSeptember 2024 3:08pmAbdominal wall cellulitisacuteOctober 2024 5:50pmCOPD (chronic obstructive pulmonary disease)acuteOctober 2024 5:50pmEncounter for screening mammogram for malignant neoplasm of breastacuteOctober 2024 5:50pmHTN (hypertension) acuteOct2024 5:50pmMajor depressionacuteOct2024 5:50pm Morbid (severe) obesity due to excess caloriesacuteOctober 2024 5:50pm Nicotine dependence, cigarettes, with unspecified nicotine-induced disorders acuteOct2024 5:50pmType 2 diabetes mellitus with complication, with long-term current use ofacuteOct2024 5:50pmVenous insufficiencyacute April 29, 2025 5:50pmCOPD (chronic obstructive pulmonary disease)acute June 03, 2025 6:08pmHTN (hypertension)acuteNov2024 6:08pm Morbid (severe) obesity due to excess caloriesacuteNov2024 6:08pm Nicotine dependence, cigarettes, with unspecified nicotine-induced disorders acuteNov2024 6:08pmShinglesacuteNov2024 6:08pmType 2 diabetes mellitus with complication, with long-term current use ofacuteNov2024 6:08pmVenous insufficiencyacuteNov2024 6:08pm Plan of Treatment Author Mckayla Blas [facility] 5:10pmobtain copy of ER notes and CT scan [...] as well as alcohol consumption. Author Mckayla Patricianorwalk memorial hospitaltalia [facility] 2024 7:34amPlease check blood pressure daily and record DASH diet Limit caffeine Take medication as directed Contact office if chest pain, pressures, dizziness, shortness of breath, swelling in the legs Recommend slow position changes if you develop dizziness with position changes current meds: hydralazine, lisinopril, Check blood sugars daily, notify the office [...] the care with endo for this a1c: 7.6% 05/28/25, 8.4% 01/29/25 cont with vascular and had recent skin grafts continue inhaler recommend quitting smoking The patient has been advised of the [...] sugary drinks, as well as alcohol consumption. was to [facility] er for back pain: Author Mckayla Blas [facility]Auth[facility]Oct[facility] 2024 5:39pmreviewed CT findings from [facility] ER at last visit we restarted lasix 20mg dose this has resolved Check blood sugars daily, notify the office [...] this a1c: 8.4% 01/29/25 cont with vascular and going to have skin grafts The patient has been advised of the [...] sugary drinks, as well as alcohol consumption. will order mammogram again, not done Please check blood pressure daily and record DASH diet Limit caffeine Take medication as directed Contact office if chest pain, pressures, dizziness, shortness of breath, swelling in the legs Recommend slow position changes if you develop dizziness with position changes current meds: hydralazine, lisinopril, continue inhaler recommend quitting smoking on duloxetine, amitriptyline Future Tests Future scheduled test information is unavailable Pending Tests Test Name Ordered Date Scheduled Date MM screening mammo BI w/CAD April 29, 2025 5 :39pm Future Visits Future appointment information is unavailable Future Procedures Future procedure information is unavailable Future Medications Future medication information is unavailable Patient Instructions Patient instructions are unavailable
--- OUTSIDE RECORDS SUMMARY | 2025-06-08 16:20 | XMS_ITS | Clinical Summary ---
Author Organization [facility] Address [address] [place] [address] Care Team Providers Care Punch 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 Name Role Phone Ty Amin MD Primary Care Provider [phone] Mckayla Blas NP Unavailable [phone] Allergies No known active allergies Medications [...] (six) hours if needed for wheezingActive HYDROcodone-acetaminophen ([place]) 5-325 MG tablet 1 tablet as needed [...] 2 diabetes mellitus with other circulatory complications ([facility]) USE TO TEST BLOOD SUGAR 4 TIMES DAILY 400 strip 4Active baclofen (Lioresal) 10 MG tablet Take 10 mg by mouth in the morning and 10 mg in the evening and 10 mg before bedtime.4Active naloxone (Narcan) 4 mg/0.1 mL nasal spray Administer 4 mg into affected nostril(s) if bscvpt514Active nicotine (Nicoderm, Step 1) 21 MG/24HR patch [...] DAYS 5Active ergocalciferol (Vitamin D2) 1.25 MG (10563 UT) capsule Indications:Vitamin D deficiency, unspecifiedTake 1 [...] long-term current use of insulin ([facility])Chew 1 tablet (81 mg) Daily 90 tablet [...] right lower extremity due to peripheral venous cmeouzrsmpnk33/03/7597Ddsga13/03/2025 Assessment & Plan (12/09/2024 7:26 AM EDT): Tylenol prn fever Finish atb's Cellulitis of left lower gwfguwllj62/03/2025 Assessment & Plan (12/09/2024 11:27 AM EDT): Finish atbs Keep appt with wound care A febrile Will call me if worsening in sxs Cigarette nicotine dependence without szmblexahgfx20/21/2025 Assessment & Plan (10/27/2024 2:40 PM EDT): Is currently using chantix, and is doing well, less desire, smoking less Vitamin D deficiency, icxnwtxnsbb20/21/2025Gastro-esophageal reflux disease without khqkpacevqi93/21/2025 Assessment & Plan (01/26/2025 7:51 AM EDT): Recommendations: freq small meals, nothing to eat or drink at least 2 hours prior to bed, limit caffeine, alcohol, as well as spicy foods Meds to limit or avoid if possible: NSAIDS Elevate HOB if possible Current meds: ompeprazole Morbid (severe) obesity due to excess qxucqglu97/19/2025 Assessment & Plan (01/26/2025 6:46 PM EDT): [...] wrapped, 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 as possible residential current use of inhaled jpxrehp3708/27/2024Non-pressure chronic ulcer of other part of left lower leg limited to breakdown of skin08/27/2024Vitamin rnmcjhvifa80/19/2025ntibiotic-induced yeast ufrauvype83/19/2025hronic diastolic heart mmrsexz2708/08/2024 Assessment & Plan (01/26/2025 7:52 AM EDT): [...] counseling 5Critical limb ischemia of right lower vyxlstusk67/12/2024 Assessment & Plan (07/14/2024 7:32 PM EST): Saw vascular, does have narrowing in arteries in legs, and thus the wounds not healing At this point they strongly urge to quit smoking or risk limb amputation Cont asa and statin Also good blood pressure and sugar control 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 2 diabetes xsjhxqgo76/05/2024 Overview (05/13/2024): Eye exam 05/13/24 Hyperpigmentation of [...] wellness on a yearly basis Other headache wbmzofmr44/11/2024 Assessment & Plan (01/17/2024 12:40 PM EDT): No hx of Migraines, however tylenol/motrin do not help and pt has gotten some relief from Excedrin migraine med Reports some sinus/uri last week. Does have left OM, will treat for this and if not better can try ubrelvy #3 samples given: Lot [id number], exp 03/2025 Mixed vlsfbimsprbj94/08/3010Newzfnsis54/08/2024Encounter for screening mammogram for malignant neoplasm of ygvhum2511/01/2023Non-seasonal allergic rhinitis 11/01/2023andidiasis of laknzb0311/01/2023 Assessment & Plan (11/01/2023 11:21 AM EDT): Skin care, Jrxoxxbo51/11/2024 Assessment & Plan (01/26/2025 6:44 PM EDT): elavil Radiculopathy, lumbar wgyvpy2509/17/2023 Assessment & Plan (07/14/2024 7:36 PM EST): [...] take over prescribing Pancreatitis ([facility])09/17/2023OPD jxplktogqvwq74/11/2024 Assessment & Plan (12/09/2024 11:26 AM EDT): [...] non labored and no cyanosis noted Venous oqpfvirkemhfa22/11/2024 Assessment & Plan (11/01/2023 11:17 AM EDT): Open wounds [facility] Pulmonary rarwkltvchrn53/11/2024 Assessment & Plan (01/26/2025 7:52 AM EDT): [...] DM control Malignant neoplasm of cervix uteri, ogvjhnjpfat59/11/2024 Assessment & Plan (08/27/2024 7:33 AM EST): Had in the past, had hysterectomy Hogaymjfxdb27/11/2024Unilateral primary osteoarthritis, right hip09/17/2023 Chronic pain of both knees09/17/20233372Hyodpmjtgrljta27/11/2024 Assessment & Plan (01/26/2025 7:49 AM EDT): On statin therapy Check labs yearly and prn dose changes Assessment & Plan (08/27/2024 7:36 AM EST): On statin therapy Check labs yearly and prn dose changes Decreased functional vyttrddv67/11/2024drenal mass 1 cm to 4 cm in diameter 09/17/2023 Assessment & Plan (07/14/2024 7:33 PM EST): Continue with Urology Kidney stone09/17/2023 Assessment & Plan (07/14/2024 7:32 PM EST): Continue with Urology Vdnvgrvuico32/11/2024Vaginal yeast rxdoauyzp56/09/2024 Assessment & Plan (01/26/2025 6:46 PM EDT): [...] reach out to DME for help Diabetic uvbwdpcxbl49/02/2024 Assessment & Plan (01/26/2025 7:53 AM EDT): [...] spiriva Will trial breztri: #2 samples given [id number], exp 03/03, rinse mouth after use Give [...] no changes in inhalers Recommend quitting smoking Upxkcr4707/10/2023 Assessment & Plan (01/26/2025 6:44 PM EDT): Current meds: albuterol, duoneb, 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 Assessment & Plan (08/27/2024 7:30 AM EST): Current meds: albuterol, duoneb, 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 Assessment & Plan (01/17/2024 12:36 PM EDT): Cont w inhalers, pulmonology Quit smoking Uohzmeccysst31/02/2024 Assessment & Plan (01/26/2025 7:52 AM EDT): [...] lost script I did contact [facility] [place], they will get another fill on this and have ready for patient Fu in 4 weeks Assessment & Plan (07/10/2023 11:59 AM EST): Stable on current dose of meds Type 2 diabetes mellitus with complication, with long-term current use of bqhemnm2207/10/2023 Assessment & Plan (01/26/2025 7:50 AM EDT): [...] odonnell for management of diabetes Anxiety and peokavvtgz30/02/2024 Assessment & Plan (01/26/2025 6:46 PM EDT): [...] discussed skin care regimines as well RAGHU dohsvmbz63/11/7199Ijglagnigvzm88/19/2018 Overview (09/17/2023): borderline Gout10/25/2017 Resolved Problems ProblemNoted [...] left ear without spontaneous rupture of tympanic pttqreah37lass 3 severe obesity with serious comorbidity and body mass index (BMI) of 50.0 to 59.9 in adult09/27/2023 04/14/20247288Cyyqzpekv11/11/202404/GERD (gastroesophageal reflux disease) Assessment & Plan (10/27/2024 [...] (BMI) of 60.0 to 69.9 in adult/bdominal mprxag91 Encounters DateTypeDepartmentCare XzunApmiwwjmapl50/20/2025 10:30 AM ESTOffice Visit [facility] [address] [place] [address] Rain Odonnell MD Type 2 diabetes mellitus with hyperglycemia, with long-term current use of insulin (HCC) (Primary Dx); Encounter for dietary consultation; Vitamin D deficiency; Primary hypertension; Insulin long-term use (HCC); Hyperlipemia, mixed; Microalbuminuria; Type 2 diabetes mellitus with other circulatory complications (HCC)05/28/2025 Bamboo flowsheet [facility] [address] [place] [address] Rain Odonnell MD 05/26/2025Telephone [facility] [address] [place] [id number] Amber Pinzon LPN SURGERY INSULIN VKXXFC6803/09/2025Refill [facility] [address] [place] [phone] Mckayla Blas NP Tobacco user; Encounter for smoking cessation counselingfrom Last 3 Months Immunizations ImmunizationAdministration DatesNext DueInfluenza Whole05/02/2013Influenza, U7B4-510756/09/2017,05/10/2016Influenza, Goirxejbbjn34/10/2023,04/16/2017, 05/10/2016Influenza, injectable, jgqpncftyfih16/10/2023,05/02/2013MMR01/29/1998 Pneumococcal Polysaccharide SGLC4715 Family History Medical HistoryRelationNameCommentsNo Known ProblemsFatherVaricose veinsFather's [...] other written material from your doctor or pharmacy?Rbtqmm4308/26/2024Humiliation, Afraid, Rape, and Kick questionnaireAnswerDate RecordedWithin the [...] relatives?Once a week08/26/2024How often do you attend caodaism or sabianist services?More than 4 times per year 08/26/2024Do you belong to any clubs or organizations such as caodaism groups, unions, fraternal or athletic groups, or school groups?No08/26/2024How often do you attend meetings of the clubs or organizations you belong to?Never02/ Are you , , , , never , or living with a partner?Fnboqvb3408/26/2024UDIT-CAnswerDate RecordedQ1: How often do you have a [...] RecordedPatient Health Questionnaire-2 Score0 01/26/2025Fin[facility] [place] [facility] - Occupational Stress QuestionnaireAnswerDate RecordedDo you feel stress - tense, restless, nervous, or anxious, or unable to sleep at night because yourmind is troubled all the time - these days?Only a cnkpyk6608/26/2024Exercise Vital SignAnswerDate Recorded On average, how many [...] homeless or living in a long-term (including now)?No08/26/2024 CommentsUnknownSex and Gender InformationValueDate RecordedSex Assigned at BirthNot on fileLegal BcsAnuyzm16/15/2023 6:50 PM EDTGender IdentityNot on fileSexual OrientationNot on file Last Filed Vital Signs Vital SignReadingTime TakenCommentsBlood Ygwksbiw596/7007 9:48 AM EDT Tzigf797905/28/2025 10:40 AM PIRMkshsfieros89.9 ??C (98.5 ??F)01/26/2025 6:11 PM EDTRespiratory Ujih175007/28/2024 10:40 AM ESTOxygen Mqyctwdlij75%05/28/2025 10:40 AM ESTInhaled Oxygen Concentration--Ngzqfm438 kg (362 lb)05/28/2025 10:40 AM EST Bugfhe270.2 cm (5' 7 )05/28/2025 10:40 AM ESTBody Mass Index56.7107/28/2024 10:40 AM EST Plan of Treatment DateTypeDepartmentCare Team (Latest Contact Info)Tcbhrshofme72/19/2026 10:50 AM EDTOffice Visit [facility] [address] [place] [phone] Rain Odonnell MD [address] [place] [address] Health MaintenanceDue DateLast DoneCommentsCT Mkxohhuaptnp10/17/1971Colonoscopy 1970FIT1970FOBT1970Uucyqxfvdlutd08/17/1971HPV/Rsghyr0808/25/2000 Pap Smear, 10/08/20157188Zzdsjmvie24/07/202506/01/2024, 12/14/2023, 11/22/2022OVID-19 Vaccine ( season)/05/2022, 10/28/2020, 10/08/2020Influenza Vaccine (#1)/04/2023, 05/18/2023, 04/16/2017, Additional history existsColorectal Cancer Ykecejqml24/26/2026 FIT-DNA6008/03/2022neumococcal Vaccine: Pediatrics (0 to 5 Years) and At-Risk Patients (6 to 64 Years)Aged Out04/16/2017No longer eligible based on patient's age to complete this topicCervical Cancer ScreeningDiscontinued Procedures Procedure NamePriorityDate/TimeAssociated DiagnosisCommentsPOCT GLYCOSYLATED HEMOGLOBIN (HGB A1C)Svzqpri6105/28/2025 10:46 AM EST Type 2 diabetes mellitus with hyperglycemia, with long-term current use of insulin (HCC) POCT MXLQXQTNdkibvm49/20/2025 10:46 AM EST Type 2 diabetes mellitus [...] / VolumeCollection TimeReceived TimeBloodVenous blood specimen / Oyyriax7005/28/2025 10:46 AM EST Narrative Authorizing ProviderResult TypeResult StatusAhmad F Libby MDPOINT OF CARE TEST ENTER/EDIT ORDERABLESFinal Result * POCT glucose manually resulted (05/28/2025 10:46 AM EST)ComponentValueRef RangeTest MethodAnalysis TimePerformed AtPathologist SignatureGlucose Blood, IZY603in/dLSpecimen (Source)Anatomical Location / LateralityCollection Method / VolumeCollection [...] AM EDT [facility] ?[address] ? [place] [address] ? Mammography Report ? Signed ? Patient: DIONISIO,SINA L ?MR#: [id number] ?? : 1970 ?Acct:[id number] ?? Age/Sex: 53 / F ?ADM Date: 12/13/23 ?? Loc: MAMMO ? Attending Dr: Mckayla J Aichholtalia HARNESS PULLER ? Ordering Physician: Wan,Mckayla HARNESS PULLER ?Results: ? Date of Service: 12/13/23 ?Follow Up: ? Procedure(s): MM tomosynthesis screening BI ?? Accession Number(s): [id number] ? cc: Mckayla Blas HARNESS PULLER ? Patient Name: ? SINA MACIAS ? MR#: [id number] ? : 1970 ? Exam Date: 12/13/2023 [...] LOCATION: ? [facility] ? BREAST COMPOSITION: ? The breasts [...] 1122 ? DD/ 1121 ? TD/TT: ? Hvac Project Manager: Procedure Note Radiology, Radiologist, MD - 12/14/2023 [place] [address] Mammography Report Signed Patient: SINA MACIAS LMR#: [id number] : 1970Acct:[id number] Age/Sex: 53 / FADM Date: 12/13/23 Loc: MAMMO Attending Dr: Mckayla Blas HARNESS PULLER Ordering Physician: Mckayla Blasesults: Date of Service: 12/13/23Follow Up: Procedure(s): MM tomosynthesis screening BI Accession Number(s): [id number] cc: Mckayla Blas NP Patient Name: SINA MACIAS MR#: [id number] : 1970 Exam Date: 12/13/2023 Ordering Doctor: SAYDA Blas NUTRITION AIDES TEACHER RADIOLOGY REPORT PROCEDURE: MM TOMOSYNTHESIS SCREENING BI [...] 75. LOCATION: [facility] BREAST COMPOSITION: The breasts are almost [...] M.D. Signed By:12/14/23 1122 DD/ 1121 TD/TT: Hvac Project Manager: Authorizing ProviderResult TypeResult StatusLisa Wan NPCLINISYNC IMAGING Final Result from Last 3 Months or Most Recently Relevant to Health Maintenance Insurance Care Teams Team MemberRelationshipSpecialtyStart DateEnd Date Ty Amin MD [address] [place] [address] PCP - GeneralFamily Medicine09/20/23 Mckayla Blas NP [address] [place] [address] Nurse PractitionerFamily Medicine09/20/23
--- OUTSIDE RECORDS SUMMARY | 2025-06-08 16:20 | XMS_ITS | Encounter Summary ---
Author Organization [facility] Address [address] [place] [address] Care Team Providers Care Aviation Technical Systems Specialist Name Role Phone Ty Amin MD Primary Care Provider [phone] Mckayla Blas NP Unavailable [phone] Encounter Details DateTypeDepartmentCare Team (Latest Contact Info)Zhvqwvpflbu53/20/2025amboo flowsheet [facility] [address] [place] [phone] Rain Souza MD [address] [place] [address] Social History Tobacco UseTypesPacks/DayYears UsedDateSmoking Tobacco: Every [...] week08/26/2024How often do you attend rastafarian or temple services?More than 4 times per year08/26/2024Do you belong to any clubs or organizations such as rastafarian groups, unions, fraternal or athletic groups, or school groups?No08/26/2024How often do you attend meetings of the clubs or organizations you belong to?Never08/26/2024re you , , , , never , or living with a partner?Ovinkhc3208/26/2024UDIT-C AnswerDate RecordedQ1: How often do you have [...] heating?Not hard at all08/26/2024PHQ-2AnswerDate RecordedPatient Health Questionnaire-2 Jpmme614Finbeaver [facility] hospital [place] of Occupational Health - Occupational Stress QuestionnaireAnswerDate RecordedDo you feel stress - tense, restless, nervous, or anxious, or unable to sleep at night because yourmind is troubled all the time - these days?Only a pibyut0108/26/2024 Exercise Vital SignAnswerDate RecordedOn average, how many [...] steady place to sleep or slept in [place] (including now)?No07/10/2023Housing Stability Vital SignAnswerDate RecordedIn the [...] RecordedSex Assigned at BirthNot on fileLegal Sex Otgcmr7609/20/2022 6:50 PM EDTGender IdentityNot on fileSexual OrientationNot on filedocumented as of this encounter Plan of Treatment DateTypeDepartmentCare Team (Latest Contact Info)Lzjcsbfbbaj77/19/2026 10:50 AM EDTOffice Visit [facility] [address] [place] [address] Rain Souza MD [address] [place] [address] documented as of this encounter Visit Diagnoses Not on filedocumented in this encounter Additional Health Concerns AssessmentNoted TimePHQ-9 Depression Total Score: 10:08 AM EDT documented as of this encounter Care Teams Team MemberRelationshipSpecialtyStart DateEnd Date Ty Amin MD [address] [place] [address] PCP - GeneralFamily Medicine09/20/23 Mckayla Blas NP [address] [place] [address] Nurse PractitionerFachelsea marine hospital Medicine09/20/23documented as of this encounter
--- OUTSIDE RECORDS SUMMARY | 2025-06-08 16:20 | XMS_ITS | Clinical Summary ---
Author Organization [facility] Address [address] [place] [address] Care Team Providers Care Brick And Block Mason Name Role Phone Mckayla Blas MD Primary [...] INJECT 48 UNITS SUBCUTANEOUSLY TWICE DAILY02/06/2022ctive HYDROcodone-acetaminophen ([place]) 5-325 mg tablet TAKE 1 TABLET BY MOUTH THREE TIMES A DAY NEEDED FOR PAIN MUST LAST 30 DAYS 11/09/2023ctive DULoxetine (Cymbalta) [address] capsule Take 1 tablet by mouth in the morning.Active ergocalciferol (Vitamin D-2) 1.25 MG (18693 Units) capsule Take 1.25 mg by mouth.Active [...] Problems ProblemNoted DateDiagnosed DateCellulitis of left lower wzygkunuv91/03/2025Fever 12/09/2024igarette nicotine dependence without /21/2025Vitamin D deficiency, mwcljkiufri19/21/2025ntibiotic-induced yeast mwobywauw61/19/2025 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 08/27/2024Long term current use of inhaled ltwxnlz5108/27/2024Vitamin deficiency 08/27/2024ad odor of urine08/08/2024hronic diastolic heart tcmgsns4808/08/2024 Myelolipoma of adrenal gland07/14/2024ritical limb ischemia of right lower yuvggipxo09/12/2024Venous ulcer of right leg06/19/2024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 2 diabetes fcsbzcvy94/05/2024 Overview (08/08/2024): Eye exam 05/13/24 Hyperpigmentation of skin04/14/20243731Hutjkrxcw52Headache Left flank painMixed incontinence urrent uoaimz65 Overview (11/14/2023): Added secondary to documentation in Social History. Candidiasis of iqejvl34 Overview (11/14/2023): Last Assessment & Plan: Skin care, Non-seasonal allergic itnsdkpj31Encounter for screening mammogram for malignant neoplasm of dtakji86lass 3 severe obesity with serious comorbidity and body mass index (BMI) of 50.0 to 59.9 in adultdrenal mass 1 cm to 4 cm in sbtklfdy89/11/2024 11/14/20239291Rvaninuezye73ervical izaoaa72 Chronic pain of both kneesecreased functional mobility GERD (gastroesophageal reflux disease) Ftpodbcqdjwuua02InsomniaKidney stone AD (peripheral artery disease)neumonia adiculopathy, lumbar ratitr54Unilateral primary osteoarthritis, right hipVenous insufficiency Overview (11/14/2023): Last Assessment & Plan: Open wounds refer to [facility] Vaginal yeast ujygeryxx97nxiety and sivxrrknbj69/02/2024 11/14/2023ilateral lower extremity edema Overview (11/14/2023): Last Assessment & Plan: Continue w pamela, discussed skin care regimines as well Diabetic qcjtxqyipo05Hypertension Overview (11/14/2023): Last Assessment & Plan: No changes today in meds Obstructive sleep apnea Overview (11/14/2023): Last Assessment & Plan: DME needs to send her a new mask for her machine, I have emphasized the importance of getting in touch with them so she can do this Type 2 diabetes mellitus with complication, with long-term current use of vtyesst39 Overview (11/14/2023): Last Assessment & Plan: Continue with [facility] for management RAGHU lbouedez39Other chronic painMI 50.0- 59.9, adult05/21/Easy aouwvzfi41losed fracture of upper end of uzqlpga73/27/bdominal kkutjj71 Bedeyj95ardiomegaly Overview (11/14/2023): borderline borderline Acute respiratory distress icvlqgyv77Gout Resolved Problems ProblemNoted DateDiagnosed DateResolved DatePulmonary ybalxeemcamc57/11/2024 Overview (11/14/2023): Last Assessment & Plan: Needs to wear her PAP I am also going to have her see [facility] Cardiology as well Family History Medical HistoryRelationNameCommentsHeart attackPaternal GrandmotherRelationName StatusCommentsFatherDeceasedMotherDeceasedPaternal Grandmother Social History Tobacco UseTypesPacks/DayYears UsedDateSmoking Tobacco: Every DayCigarettes Smokeless Tobacco: Never Tobacco Cessation:Ready to Q uit: Not Asked; Counseling Given: Not Answered Alcohol UseStandard Drinks/WeekCommentsNot Currently0 (1 standard drink = 0.6 oz pure alcohol)NM Safety & EnvironmentAnswerDate RecordedFear of Current or Ex-PartnerNot on file08/30/2023Emotionally AbusedNot on file08/30/2023hysically AbusedNot on file08/30/2023Sexually AbusedNot on file08/30/2023hysically or Sexually AbusedNot on file08/30/2023CommentsUnknownSex and Gender InformationValueDate RecordedSex Assigned at BirthNot on fileLegal SexFemale 01/04/2022 10:08 PM EDTGender IdentityNot on fileSexual OrientationNot on file Last Filed Vital Signs Vital SignReadingTime TakenCommentsBlood Duvwiqha252/6407 11:41 AM EDT Qwism942701/06/2025 11:41 AM ILHQygfctsaimt54.7 ??C (98.1 ??F)12/12/2018 2:44 PM EDTRespiratory Rate--Oxygen Fcfvemvjuw51%01/06/2025 11:41 AM EDTInhaled Oxygen Concentration--Vbckoe300 kg (376 lb)01/06/2025 11:41 AM PGKPgkwzc908.2 cm (5' 7 )01/06/2025 11:41 AM EDTBody Mass Index58.8907 11:41 AM EDT Plan of Treatment Health MaintenanceDue DateLast DoneCommentsCT Lxcsuosmmobc00/17/1971Colonoscopy 1970Colorectal Cancer Hlclnzxyr64/17/1971Diabetes: Hemoglobin A1C 1970FIT-DNA1970FIT1970FOBT1970Medicare Annual Wellness (AWV)1970 6010Nomqqtedcmcsv65/17/1971Diabetes: Retinopathy Sfzbvrfif63/17/1981 Depression Sgbivpmwy36/17/1983Diabetes: Urine Protein Vkypiboyg75/17/1990 Hepatitis B Vaccines (1 of 3 - 19+ 3-dose series)1989Pap Smear1991 Adult Tipyycz0908/25/1992Cervical Cancer Xqpxljiku65/17/2001HPV/Zvnyfi2908/25/2000 Ndiekzgfw11/17/2011Pneumococcal Vaccine: Pediatrics (0 to 5 Years) and [...] Mckayla Blas MD [address] [place] [place] [address] PCP - GeneralNurse Practitioner11/13/23
--- OUTSIDE RECORDS SUMMARY | 2025-06-08 16:20 | XMS_ITS | Clinical Summary ---
Author Organization [employer] [facility] Address [id number] [address] [place] [address] Care Team Providers Care Sort Supervisor Name Role Phone Wan Mckayla Rice APRN-ELECTRONIC SYSTEMS TECHNICIAN Primary Care Provider Allergies No known [...] mg/0.5 mL pen injector inject one pen zgxzeu9904/12/2020Active DULoxetine (CYMBALTA) 60 mg capsule Take 1 [...] get venous reflux ultrasound. Other chronic pain1ANA crhxjpli05/11/2021Preop cardiovascular exam 05/28/20200431Elagtel65/20/2020 Assessment & Plan (06/19/2024 2:16 PM EST): Counseled on smoking cessation for at least 3 minutes. She is willing to quit. Morbid pkxgxrz0805/28/2020BMI 50.0-59.9, adult05/21/2020 Family History Medical HistoryRelationNameCommentsCancerPaternal GrandfatherCancerPaternal GrandmotherHeart diseasePaternal GrandmotherStrokePaternal GrandmotherRelation NameStatusCommentsFatherDeceasedMotherDeceasedPaternal GrandfatherPaternal Grandmother Social History Tobacco UseTypesPacks/DayYears UsedDateSmoking Tobacco: Every DayCigarettes Smokeless Tobacco: NeverAlcohol UseStandard Drinks/WeekCommentsYes0 (1 standard drink = 0.6 oz pure alcohol)RAREChildcareAnswerDate RecordedChildcareUnknown 12/12/2018EmploymentAnswerDate KpautwbdLmajgtagusOnisnip58/06/2019Purpose - Life AnswerDate RecordedPurpose and direction in rzxuNuxhaus73/06/2021 CommentsUnknownSex and Gender InformationValueDate RecordedSex Assigned at Not on fileLegal RilHwhhdz89/06/2015 11:50 AM EDTGender IdentityNot on file Sexual OrientationNot on file Last Filed Vital Signs Vital SignReadingTime TakenCommentsBlood Tvisxrcg726/7006/19/2024 11:26 AM EST Uaxot511806/19/2024 11:26 AM FFSVbytriwiyad47.7 ??C (98 ??F)06/19/2024 11:26 AM ESTRespiratory Idzf733308/20/2023 11:26 AM ESTOxygen Obuaykefcp92%06/11/2020 9:27 AM ESTInhaled Oxygen Concentration--Nllcyt498.6 kg (374 lb)06/19/2024 11:26 AM WOXQgctwv866 cm (5' 6.93 )06/19/2024 11:26 AM ESTBody Mass Index58.7108/20/2023 11:26 AM EST Plan of Treatment Health MaintenanceDue DateLast DoneCommentsStatin Use: Akigyqbzxndpte53/17/1971 Depression Dusrtheeb93/17/1983Tobacco Hydcdyozl40/17/1983Adult BMI Follow Up Plan1988DTaP,Tdap and Td Vaccines (1 - Tdap)1989Pap Smear1991 Zoster (Shingles) Vaccine (1 of 2)1COVID-19 Vaccine (4 - 2024-26 season)5007/19/2021, 10/28/2020, 10/08/2020Influenza Egyrwso1403/09/2025 05/18/2023, 04/16/2017, 05/10/2016, Additional history existsAdult BMI Screening Medical Devices Not on file Insurance Care Teams Team MemberRelationshipSpecialtyStart DateEnd Date Mckayla Blas, PAPERBOARD BOX MAKER-ELECTRONIC SYSTEMS TECHNICIAN [address] [place] [address] PCP - GeneralNurse Practitioner09/25/18
--- OUTSIDE RECORDS SUMMARY | 2025-06-08 16:20 | XMS_ITS | Encounter Summary ---
Author Organization [facility] Address [address] [place] [address] Care Team Providers Care Meat Cutter Name Role Phone Ty Amin MD Primary Care Provider [phone] Mckayla Blas NP Unavailable [phone] Reason for Visit * ReasonOnset DateCommentsSURGERY INSULIN JSBZQQ5405/26/2025 Encounter Details DateTypeDepartmentCare Team (Latest Contact Info)Dyyozqjwxtc97/18/2025Telephone [facility] [address] [place] [address] Amber Pinzon LPN SURGERY INSULIN INTAKE Social [...] relatives?Once a week08/26/2024How often do you attend zoroastrian or taoism services?More than 4 times per year08/26/2024Do you belong to any clubs or organizations such as zoroastrian groups, unions, fraSmart Mocha or athletic groups, or school groups?No08/26/2024How often do you attend meetings of the clubs or organizations you belong to?Never08/26/2024re you , , , , never , or living with a partner?Zxjeupq7708/26/2024UDIT-C AnswerDate RecordedQ1: How often do you have [...] heating?Not hard at all08/26/2024PHQ-2AnswerDate RecordedPatient Health Questionnaire-2 Byyxb246[facility] [place] [facility] - Occupational Stress QuestionnaireAnswerDate RecordedDo you feel stress - tense, restless, nervous, or anxious, or unable to sleep at night because yourmind is troubled all the time - these days?Only a buczvf3108/26/2024 Exercise Vital SignAnswerDate RecordedOn average, how many [...] homeless or living in a fpc (including now)?No08/26/2024CommentsUnknownSex and Gender InformationValueDate RecordedSex Assigned at BirthNot on fileLegal Sex Ufyabb1609/20/2022 6:50 PM EDTGender IdentityNot on fileSexual OrientationNot [...] Plan of Treatment DateTypeDepartmentCare Team (Latest Contact Info)Ljxoaaiggsm55/19/2026 10:50 AM EDTOffice Visit [facility] [address] [place] [address] Rain Souza MD [address] [place] [address] documented as of this encounter Visit Diagnoses Not on filedocumented in this encounter Additional Health Concerns AssessmentNoted TimePHQ-9 Depression Total Score: 10:08 AM EDT documented as of this encounter Care Teams Team MemberRelationshipSpecialtyStart DateEnd Date Ty Amin MD [address] [place] [phone] PCP - GeneralFamily Medicine09/20/23 Mckayla Blas NP [address] [place] [phone] Nurse PractitionerFamily Medicine09/20/23documented as of this encounter
--- OUTSIDE RECORDS SUMMARY | 2025-06-08 16:37 | XMS_ITS | CCD ---
Author Organization [facility] Care Team Providers Care Electronic Induction Hardener Name Role Phone James Benavidez Primary Care Provider [phone] JAMES BENAVIDEZ Primary Care Unavailable SHENDGE, VITHAL Admitting Unavailable SHENDGE, VITHAL Attending Unavailable AICHHOLZ, MCKAYLA Primary Care Unavailable AICHHOLZ, MCKAYLA Referring Unavailable AICHHOLZ, MCKAYLA J Primary Care Physician Tico, Stephanie Unavailable OLE RAMIREZ Attending Unavailable OLE RAMIREZ Consulting Unavailable AICHHOLZ, CYBER INCIDENT ANALYST MCKAYLA Primary Care Unavailable OLE RAMIREZ Admitting Unavailable ANTONY SHRESTHA Consulting Unavailable ALONDRA ., JACQUELINE Admitting Unavailable ALONDRA ., JACQUELINE Attending Unavailable AICHHOLZ, CYBER INCIDENT ANALYST MCKAYLA Primary Care Unavailable AFSANEH Loera, DR BOLANOS Consulting Unavailable MRAYANNE POWER Consulting Unavailable GLENN KERR Consulting Unavailable YOMAIRA KERR Consulting Unavailable HATTIE GOFF Consulting Unavailable ALONDRA ., JACQUELINE Consulting Unavailable TICO, STEPHANIE Attending Unavailable TICO, STEPHANIE Consulting Unavailable AICHHOLZ, CYBER INCIDENT ANALYST MCKAYLA Primary Care Unavailable TICO, STEPHANIE Admitting Unavailable REGLA ., DR DUMONT Admitting Unavailable AICHHOLZ, CYBER INCIDENT ANALYST MCKAYLA Primary Care Unavailable REGLA ., DR DUMONT Attending Unavailable ARAUZ ., DR DUMONT Consulting Unavailable COLLIN HUERTAS Consulting Unavailable CECILIA KAUFMAN Admitting Unavailable CECILIA KAUFMAN Attending Unavailable AICHHOLZ, CYBER INCIDENT ANALYST MCKAYLA Primary Care Unavailable COMFORT PRETTY Attending Unavailable COMFORT PRETTY Admitting Unavailable AICHHOLZ, CYBER INCIDENT ANALYST MCKAYLA Primary Care Unavailable AICHHOLZ, CYBER INCIDENT ANALYST MCKAYLA Admitting Unavailable AICHHOLZ, CYBER INCIDENT ANALYST MCKAYLA Primary Care Unavailable AICHHOLZ, CYBER INCIDENT ANALYST MCKAYLA Attending Unavailable AICHHOLZ, CYBER INCIDENT ANALYST MCKAYLA Consulting Unavailable LAKSHMIPATHY ., NARENDRANATH Attending Anette vailable LAKSHMIPATHY ., NARENDRANATH Consulting Anette vailable LAKSHMIPATHY ., NARENDRANATH Admitting Anette vailable AICHHOLZ, CYBER INCIDENT ANALYST MCKAYLA Primary Care Unavailable VALENZUELA ., GIL Consulting Unavailable MORTENSEN ., DR CHAPARRO Aguillon Attending Unavailable MORTENSEN ., DR CHAPARRO Aguillon Admitting Unavailable AICHHOLZ, CYBER INCIDENT ANALYST MCKAYLA Primary Care Unavailable VALENZUELA ., GIL Consulting Unavailable MORTENSEN ., DR CHAPARRO Aguillon Admitting Unavailable AICHHOLZ, CYBER INCIDENT ANALYST MCKAYLA Primary Care Unavailable MORTENSEN ., DR CHAPARRO Aguillon Attending Unavailable HALKER ., SUBHASH Consulting Unavailable LAKSHMIPATHY ., NARENDRANATH Admitting Anette vailable LAKSHMIPATHY ., NARENDRANATH Attending Anette vailable AICHHOLZ, CYBER INCIDENT ANALYST MCKAYLA Primary Care Unavailable MORTENSEN ., DR CHAPARRO Aguillon Attending Unavailable MORTENSEN ., DR CHAPARRO Aguillon Admitting Unavailable VALENZUELA ., GIL Consulting Unavailable AICHHOLZ, CYBER INCIDENT ANALYST MCKAYLA Primary Care Unavailable VALENZUELA ., GIL Consulting Unavailable MORTENSEN ., DR CHAPARRO Aguillon Attending Unavailable MORTENSEN ., DR CHAPARRO Aguillon Admitting Unavailable AICHHOLZ, CYBER INCIDENT ANALYST MCKAYLA Primary Care Unavailable HATTIE BRODERICK Attending Unavailable HATTIE BRODERICK Admitting Unavailable AICHHOLZ, CYBER INCIDENT ANALYST CMKAYLA Primary Care Unavailable AICHHOLZ, CYBER INCIDENT ANALYST MCKAYLA Admitting Unavailable AICHHOLZ, CYBER INCIDENT ANALYST MCKAYLA Consulting Unavailable AICHHOLZ, CYBER INCIDENT ANALYST MCKAYLA Primary Care Unavailable AICHHOLZ, CYBER INCIDENT ANALYST MCKAYLA Attending Unavailable AICHHOLZ, CYBER INCIDENT ANALYST MCKAYLA Primary Care Unavailable MISC, DR LESLIE Admitting Unavailable MISC, DR LESLIE Attending Unavailable MISC, DR LESLIE Consulting Unavailable DIAB ., MARIANO Admitting Unavailable DIAB ., MARIANO Attending Unavailable DIAB ., MARIAON Consulting Unavailable AICHHOLZ, CYBER INCIDENT ANALYST MCKAYLA Primary Care Unavailable RASTEGAR, RICCO Consulting Unavailable AICHHOLZ, CYBER INCIDENT ANALYST MCKAYLA Admitting Unavailable AICHHOLZ, CYBER INCIDENT ANALYST MCKAYLA Primary Care Unavailable AICHHOLZ, CYBER INCIDENT ANALYST MCKAYLA Attending Unavailable AICHHOLZ, CYBER INCIDENT ANALYST MCKAYLA Consulting Unavailable DR PATRICIA VELOZ Consulting Unavailable TAMLYN ., CECILIA Attending Unavailable TAMLYN ., CECILIA Admitting Unavailable DR PATRICIA VELOZ Consulting Unavailable AICHHOLZ, CYBER INCIDENT ANALYST MCKAYLA Primary Care Unavailable TAMLYN ., CCEILIA Consulting Unavailable MORTENSEN ., DR CHAPARRO Aguillon Attending Unavailable FESTUS ., DR CHAPARRO Aguillon Consulting Unavailable FESTUS ., DR CHAPARRO Aguillon Admitting Unavailable AICHHOLZ, CYBER INCIDENT ANALYST MCKAYLA Primary Care Unavailable HATTIE RBODERICK Attending Unavailable HATTIE BRODERICK Consulting Unavailable HATTIE BRODERICK Admitting Unavailable AICHHOLZ, CYBER INCIDENT ANALYST MCKAYLA Primary Care Unavailable HATTIE BAUTISTA Unavailable AICHHOLZ, CYBER INCIDENT ANALYST MCKAYLA Admitting Unavailable AICHHOLZ, CYBER INCIDENT ANALYST MCKAYLA Attending Unavailable AICHHOLZ, CYBER INCIDENT ANALYST MCKAYLA Consulting Unavailable AICHHOLZ, CYBER INCIDENT ANALYST MCKAYLA Primary Care Unavailable Ty Amin MD Primary Care Provider Ty Amin MD Primary Care Provider [phone] Aichholz GAMEPLAY ENGINEER, Mckayla Unavailable Aichholz GAMEPLAY ENGINEER, Mckayla Unavailable AICHHOLZ, MCKAYLA Attending Unavailable LIBBY, AHMAD F Attending Unavailable AICHHOLZ, MCKAYLA Attending Unavailable AICHHOLZ, MCKAYLA Attending Unavailable AICHHOLZ, MCKAYLA Attending Unavailable LIBBY, AHMAD F Attending Unavailable AICHHOLZ, MCKAYLA Attending Unavailable LIBBY, AHMAD F Attending Unavailable LIBBY, AHMAD F Referring Unavailable AICHHOLZ, MCKAYLA Attending Unavailable Aichholz GAMEPLAY ENGINEER, Mckayla Unavailable Aichholz GAMEPLAY ENGINEER-C, Mckayla J Primary Care Provider Price Arora DO Attending Provider [phone] Flynn Urias DPM Attending Provider [phone] Aichholz GAMEPLAY ENGINEER-C, Mckayla J Attending Provider [phone] AMI ORO Attending Unavailable DAKOTAH BRIDGES Attending Unavailable Elbert ARAUZ Attending Unavailable GAVIOTA ADAMES Attending Unavailable Ty Amin MD Primary Care Provider [phone] Aichholz GAMEPLAY ENGINEER, Mckayla Unavailable Aichholz GAMEPLAY ENGINEER, Mckayla Unavailable Ty Amin MD Primary Care Provider Bob DINING ROOM COORDINATOR-CYBER INCIDENT ANALYST, Omero Lovell Attending Unav ailable Aichholz DINING ROOM COORDINATOR-CYBER INCIDENT ANALYST, Mckayla Lennon Primary Care Unava ilable Adonay DPM, Flynn Arzate Attending Unavailab le Adonay DPM, Flynn Arzate Attending Unavailab le Aichholz DINING ROOM COORDINATOR-CYBER INCIDENT ANALYST, Mckayla Lennon Primary Care Unava ilable Adonay DPM, Flynn Arzate Attending Unavailab le Adonay DPM, Flynn Arzate Attending Unavailab le Aichholz DINING ROOM COORDINATOR-CYBER INCIDENT ANALYST, Mckayla Lennon Primary Care Unava ilable Aichholz DINING ROOM COORDINATOR-CYBER INCIDENT ANALYST, Mckayla Lennon Primary Care Unava ilable Adonay DPM, Flynn Arzate Attending Unavailab le Aichholz DINING ROOM COORDINATOR-CYBER INCIDENT ANALYST, Mckayla Lennon Primary Care Unava ilable Bob DINING ROOM COORDINATOR-CYBER INCIDENT ANALYST, Omero Lovell Attending Unav ailable Aichholz DINING ROOM COORDINATOR-CYBER INCIDENT ANALYST, Mckayla Lennon Primary Care Unava ilable Adonay DPM, Flynn Arzate Attending Unavailab le Adonay DPM, Flynn Arzate Attending Unavailab le Bob DINING ROOM COORDINATOR-CYBER INCIDENT ANALYST, Omero Lovell Consulting Unav ailable Aichholz DINING ROOM COORDINATOR-CYBER INCIDENT ANALYST, Mckayla Lennon Primary Care Unava ilable Corinne Kellogg MD Attending Unavail able Bob DINING ROOM COORDINATOR-CYBER INCIDENT ANALYST, Omero Lovell Attending Unav ailable Adonay DPM, Flynn Arzate Referring Unavailab le Allergies Allergy ClassificationReported Allergen(s)Allergy TypeDate of OnsetReaction(s) Facility (1 source)No Known Medication Allergies; Translations: [No Known Medication Allergies]Propensity to adverse reactions (disorder)[facility] Repository Medications Current Medications MedicationDrug Class(es)DatesSig (Normalized)Sig (Original)0.5 ML tirzepatide 30 MG/ML Auto-Injector [Mounjaro] (1 source)Start: 56-83-4623xghhap 15 mg by subcutaneous injection every week Mounjaro 15 mg/0.5 mL subcutaneous solution INJECT 15MG SUBCUTANEOUSLY ONCE A WEEK Start Date: 06/11/24 Status: Orderedacetaminophen 325 mg / HYDROcodone bitartrate 5 mg oral tablet (20 sources)Opioid AgonistStart: 29-70-4645nvobhrhbhdetg-hydrocodone 325 mg-5 mg oral tablet Refill(s) 0 Start Date: 02/06/22 Status: OrderedStart: 12-13-2017 End: 75-79-5500nija 1 tablet by mouth every four hoursHydrocodone-Acetaminophen (Thorofare) 5-325 mg tablet Discontinued 1 TAB PO Q4H 15 0 December 13, 2017 April 05, 2025 12:52pm Fracture of humerus painStart: 22-66-3141njrt 1 tablet by mouth every four to six hours as needed for painHYDROcodone-acetaminophen (Thorofare) 5-325 MG tablet 1 tablet 3 (three) times a day as needed for severe pain. Activetake 1 tablet by mouth twice daily as neededNorco 5-325 MG 1 tablet as needed Orally TWICE A DAY Activealbuterol 0.83 mg/ml inhalation solution (20 sources)beta2-Adrenergic AgonistStart: 79-55-9140dqrq 2.5 mg by inhalation every four to six hours as neededStart: 43-34-4528ssosuyssr 0.083% Inh Tracey 3 mL Refill(s) 0 [...] oral tablet (20 sources)Tricyclic AntidepressantStart: 02-06-2022 End: 89-67-9099bdxf 1 tablet by mouth once daily at bedtimeaspirin 81 mg chewable tablet (20 sources)Platelet Aggregation Inhibitor, Nonsteroidal Anti-inflammatory Drug Start: 11-01-2023 End: 23-45-5444njmz 1 tablet by mouth once dailyaspirin 81 MG chewable tablet Chew 81 mg in the morning. 0 Activebaclofen 10 mg oral tablet (20 sources)gamma-Aminobutyric Acid-ergic AgonistStart: 84-45-1841hyih 1 tablet by mouth every eight hours as neededStart: 09-00-0433ijhp 1 tablet by mouth in the morning, then take 1 tablet by mouth in the evening, then take 1 tablet by mouth at bedtimebaclofen (Lioresal) 10 MG tablet Take 10 mg by mouth in the morning and 10 mg in the evening and 10mg before bedtime. 06/24/2024 Gjzskr72 actuat budesonide 0.16 mg/actuat / formoterol fumarate [...] tablet (20 sources)Histamine-1 Receptor AntagonistStart: 11-01-2023 End: 07-32-9274ltos 1 tablet by mouth once daily as neededtake 1 tablet by mouth in the morningcetirizine (ZyrTEC) 10 MG tablet Take 10 mg by mouth in the morning. 0 Activedapagliflozin 10 mg oral tablet (20 sources)Sodium-Glucose Cotransporter 2 InhibitorStart: 01-17-2024 End: 34-68-1515zgsa 1 tablet by mouth once dailyStart: 08-14-2023 End: 34-95-9601vlht 1 tablet by mouth in the morningdapagliflozin (Farxiga) 10 MG Indications: Type 2 diabetes mellitus with unspecified complications ( CMS/HCC) Take 1 tablet (10 mg) by mouth in the morning. 90 tablet 1 08/14/2023 11/12/2023 Activediclofenac sodium 75 mg delayed release oral tablet (20 sources)Nonsteroidal Anti-inflammatory DrugStart: 45-87-0787gygt 1 tablet by mouth twice daily0.5 ML dulaglutide 9 MG/ML Auto-Injector [Trulicity] (4 sources)GLP-1 Receptor AgonistStart: 95-15-6534Myahwravz Pen 4.5 mg/0.5 mL subcutaneous solution Refills(s) [...] sources)Serotonin and Norepinephrine Reuptake InhibitorStart: 11-01-2023 End: 79-43-9343suwi 1 capsule by mouth twice dailyStart: 07-23-2023 End: 85-21-0622nazk 1 capsule by mouth in the morningDULoxetine (Cymbalta) [address] capsule Indications: Anxiety and depression (CMS/HCC) Take 1 capsule(60 mg) by mouth in the morning and 1 capsule (60 mg) before bedtime. Do not crush or chew.. 60 capsule 3 07/23/2023 08/22/2023 ActiveStart: 84-44-5261FCDqnaxrje 30 mg Cap-EC Refills(s) 0 Start Date: 02/06/22 Status: OrderedDULoxetine 30 mg Cap-EC (2 sources)Start: 11-81-0593JCOsmntuii 30 mg Cap-EC Refills(s) 0 Start Date: 02/06/22 Status: Orderedergocalciferol 1.25 mg oral capsule (20 sources)Provitamin D2 CompoundStart: 25-43-5564Cokfk: 01-16-2025 End: 15-16-6760agqd 1 capsule by mouth every weekergocalciferol (Vitamin D2) 1.25 MG (12512 UT) capsule Indications: Vitamin D deficiency, unspecified Take 1 capsule (1.25 mg) by mouth 1 (one) time per week 12 capsule 1 01/16/2025 04/10/2025 ActiveStart: 10-27-2024 End: 57-31-9925pptc 1 capsule by mouth two times weeklyergocalciferol (Vitamin D2) 1.25 MG (99975 UT) capsule Indications: Vitamin D deficiency, unspecified Take 1 capsule (1.25 mg) by mouth 2 (two) times a week 24 capsule 1 10/27/2024 01/19/2025 ActiveStart: 04-06-2024 End: 21-65-9934nygc 1 capsule by mouth every weekergocalciferol (Vitamin D2) 1.25 MG (22323 UT) capsule Indications: Vitamin D deficiency, unspecified TAKE 1 CAPSULE BY MOUTH ONE TIME PER WEEK 12 capsule 1 04/06/2024 10/27/2024 Discontinued (Reorder)fluconazole 150 mg oral tablet (20 sources)Azole AntifungalStart: 08-27-2024 End: 41-51-4537kkcvdirghwv (Diflucan) 150 MG tablet Indications: Antibiotic- induced yeast infection One time dose,repeat in 3 days . Do not take cholesterol pill while taking this medication. Once finished then resume 2 tablet 1 01/26/2025 ActiveStart: 08-17-2023 End: 39-87-8877kzxaarlapje (Diflucan) 150 MG tablet Indications: Vaginal yeast infection Take 1 tablet (150 mg) bymouth in the morning for 2 days. One time dose, may repeat in 3 days. 2 tablet 1 08/17/2023 08/19/2023 Active End: 25-01-0980vxibdwtoukd (Diflucan) 150 MG tablet Take 200 mg by mouth in the morning. 0 08/17/2023 Discontinued(Reorder)furosemide 20 mg oral tablet (20 sources)Loop DiureticStart: 09-22-2024 End: 05-90-3134mbqs 1 tablet by mouth once dailyStart: 04-06-2024 End: 91-88-4745fwbt 1 tablet by mouth once dailyfurosemide (Lasix) 40 MG tablet Indications: Bilateral lower extremity edema Take 1 tablet (40 mg) by mouth Daily 90 tablet 1 04/06/2024 ActiveStart: 12-13-2017 End: 39-22-2680heqp 1 tablet by mouth once daily as [...] oral tablet (20 sources)Arteriolar VasodilatorStart: 09-13-2023 End: 34-15-4598pczv 1 tablet by mouth twice dailysodium hypochlorite 2.5 mg/ml topical solution (14 sources)Start: 51-61-5722RrPeww 0.25 % external solution APPLY TO GAUZE [...] with supper. 0 ActiveNovoLog (5 sources)Insulin AnalogStart: 39-10-4199YydmWyi SubCutaneous, TIDAC, Refills(s) 0 Start Date: 02/06/22 Status: OrderedNovoLOG 100 UNIT/ML as directed Injection SLIDING SCALE BEFORE EACH MEAL Active3 ml insulin glargine 100 unt/ml pen injector (20 sources)Insulin AnalogStart: 22-64-8516Cnegn: 04-52-4597mwnobqc glargine (Lantus SoloStar) 100 UNIT/ML pen Indications: Type 2 diabetes mellitus with hyperglycemia, with long-term current use of insulin (HCC) INJECT 58 UNITS SUBCUTANEOUSLY TWICE A DAY 105mL 2 02/16/2025 ActiveStart: 01-29-2025 End: 08-19-9182gwepxn 58 [IU] by subcutaneous injection in the morninginsulin glargine (Lantus) 100 UNIT/ML injection Indications: Type 2 diabetes mellitus with hyperglycemia, with long-term current use of insulin (HCC) Inject 58 Units under the skin in the morning and58 Units before bedtime. 104.4 mL 1 01/29/2025 07/28/2025 ActiveStart: 98-47-7635Ypnaps SoloStar 100 UNIT/ML pen 08/26/2024 ActiveStart: 10-30-2023 End: 00-73-3910Oimxnw SoloStar 100 UNIT/ML pen 10/30/2023 04/14/2024 Discontinued (Therapy completed)Start: 26-23-0017Ipddrp Solostar Pen 100 units/mL subcutaneous solution Refills(s) 0 Start Date: 02/06/22 Status: Ordered Start: 12-13-2017 End: 69-94-8201xvgvje 50 [IU] by subcutaneous injection twice dailyInsulin Glargine (Lantus U-100 Insulin) 100 unit/mL Solution Discontinued 50 UNIT SUBCUT Twice daily December 13, 2017 12:00am April 05, 2025 12:53pmLantus SoloStar 100 UNIT/ML as directed Subcutaneous 58 UNITS ONCE A DAY Active3 ml insulin lispro 100 unt/ml pen injector (20 sources)Insulin AnalogStart: 10-06-2023 End: 11-39-8418CsmfETD KWIKPEN 100 UNIT/ML injection Inject under the skin 10/06/2023 04/14/2024 Discontinued (Therapy completed)Start: 32-99-8328gcjmyg 1 [IU] by subcutaneous injection before mealtimeInsulin [...] lactate 120 mg/ml topical lotion (20 sources)Start: 84-63-8368Zsouz: 66-34-9989blrafvkx lactate (Lac-Hydrin) 12 % lotion 07/22/2024 ActiveStart: 33-57-6192mpgiqzqz lactate (Lac-Hydrin) 12 % lotion APPLY TO BILATERAL FEET EVERY DAY 07/22/2024 Activelisinopril 20 mg oral tablet (20 sources)Angiotensin Converting Enzyme InhibitorStart: 02-06-2022 End: 13-63-3942hsda 1 tablet by mouth once dailymeloxicam (5 sources)Nonsteroidal Anti-inflammatory DrugStart: 29-17-4333zvtcfccoj Daily, Refills(s) 0 Start Date: 02/06/22 Status: Orderedtake 1 tablet by mouth every twenty-four hoursMeloxicam 7.5 MG 1 tablet Orally Once a day ActivemetFORMIN hydrochloride 1000 mg oral tablet (1 source)Biguanidetake 1 tablet by mouth twice daily at mealtimemetFORMIN (GLUCOPHAGE) 1000 MG tablet Take 1,000 mg by mouth 2 times daily (with meals). 0 ActiveMounjaro 10 MG/0.5ML solution pen-injector (4 sources)Start: 10-22-2023 End: 89-90-5398razfgy 10 mg by subcutaneous injection every weekMounjaro 10 MG/0.5ML solution pen-injector INJECT 10MG SUBCUTANEOUSLY ONCE A WEEK 10/22/2023 04/14/2024 Discontinued (Therapy completed)Start: 73-24-4382hdgovd 10 mg by subcutaneous injection every weekMounjaro 10 MG/0.5ML solution pen-injector INJECT 10MG SUBCUTANEOUSLY ONCE A WEEK 10/22/2023 ActiveMounjaro 15 MG/0.5ML solution auto-injector (8 sources)Start: 54-24-8040Bgakxhsa 15 MG/0.5ML solution auto-injector Inject 15 mg as directed every 7 (seven) days 02/18/2024 Activenaloxone hydrochloride 40 mg/ml nasal spray (20 sources)Opioid AntagonistStart: 08-57-3654Fjmqr: 54-73-2177pilwnnzy (Narcan) 4 mg/0.1 mL nasal spray Administer 4 mg into affected nostril(s) if needed 07/04/2024 Ioeuix19 hr nicotine 0.875 mg/hr transdermal system (20 sources)Cholinergic Nicotinic AgonistStart: 07-14-2024 End: 53-62-0481wlxyfsdc (Nicoderm, Step 1) 21 MG/24HR patch Indications: [...] capsule (20 sources)Proton Pump InhibitorStart: 12-25-2023 End: 74-49-5312gtil 1 capsule by mouth once dailytake 1 capsule by mouth before mealtimeomeprazole (PriLOSEC) [address] capsule Take 20 mg by mouth in the morning. Take before meals. Do not crush or chew. . 0 ActiveOxygen (20 sources)oxygen (O2) gas Inhale 2 L/min continuously via nasal canula Active potassium chloride 10 meq extended release oral tablet (20 sources)Start: 84-72-2682Ihoor: 02-06-2022 End: 53-32-0349luho 1 capsule by mouth once daily in the morningpotassium chloride ER (Micro-K) 10 MEQ ER capsule Indications: Bilateral lower extremity edema Take1 capsule (10 mEq) by mouth Daily Take 1 capsule (10 mEq) by mouth in the morning. 90 capsule 1 01/26/2025 04/26/2025 ActiveStart: 12-13-2017 End: 16-50-4850Lhvksvxfh Chloride (Klor-Con 10) 10 mEq Tablet Extended Release Discontinued 10 MEQ PO Twice daily December 13, 2017 12:00am April 05, 2025 12:56pmtake 1 tablet by mouth every twenty-four hoursPotassium Chloride ER 10 MEQ 1 tablet with food Orally Once a day ActivepredniSONE 10 mg oral tablet (11 sources)Start: 27-64-0834qsyficPFYV (Deltasone) 10 MG tablet 4 TABS X3 DAYS, 3TABS X3 DAYS, 2 TABS X3 DAYS, 1 TAB X3 DAYS, 1/2 TAB X4 DAYS 12/05/2024 Active pregabalin 150 mg oral capsule (20 sources)Start: 93-26-3329fgqn 1 capsule by mouth once dailyStart: 08-13-2024 take 1 capsule by mouth once dailypregabalin (Lyrica) 150 MG capsule Take 150 mg by mouth Daily 08/13/2024 ActiveStart: 91-27-1808Xdfpym Oral, Refills(s) 0 Start Date: 02/06/22 Status: OrderedStart: 12-13-2017 End: 24-61-0878etil 1 capsule by mouth in the morningpregabalin (Lyrica) 300 MG capsule Indications: Diabetic polyneuropathy associated with type 2 diabetes mellitus (HCC) Take 1 capsule (300 mg) by mouth in the morning and 1 capsule (300 mg) before bedtime. 60 capsule 5 04/14/2024 Activeroflumilast 0.5 mg oral tablet (20 sources)Phosphodiesterase 4 InhibitorStart: 01-04-2024 End: 36-26-9513joag 1 tablet by mouth once dailysimvastatin 10 mg oral tablet (20 sources)HMG-CoA Reductase InhibitorStart: 12-19-2024 End: 87-31-8265uiub 1 tablet by mouth once daily at bedtimeStart: 04-06-2024 End: 26-41-6928zzjw 1 tablet by mouth at bedtimesimvastatin (Zocor) 10 MG tablet Indications: Hyperlipidemia, unspecified (CMS/HCC) Take 1 tablet (10 mg) by mouth at bedtime 90 tablet 1 08/27/2024 ActiveStart: 06-15-2023 End: 00-94-5591pbjp 1 tablet by mouth in the morningsimvastatin (Zocor) 10 MG tablet Indications: Hyperlipidemia, unspecified (CMS/HCC) Take 1 tablet (10 mg) by mouth in the morning. 90 tablet 1 06/15/2023 09/13/2023 ActiveStart: 12-13-2017 End: 23-15-1114vqsh 1 tablet by mouth once daily in the eveningSimvastatin 20 mg Tablet Discontinued 20 MG PO Every evening December 13, 2017 12:00am March 1:00pmsulfamethoxazole 800 mg / trimethoprim 160 mg oral tablet (15 sources)Dihydrofolate Reductase Inhibitor Antibacterial, Sulfonamide AntimicrobialStart: 76-74-5815dzri 1 tablet by mouth twice daily sulfamethoxazole-trimethoprim (Bactrim DS) 800-160 MG per tablet TAKE 1 TABLET BY MOUTH TWICE A DAYFOR 14 DAYS 01/14/2025 ActiveStart: 08-27-2024 End: 55-97-2719iwowoozgblhmhtpx-trimethoprim (Bactrim DS) 800-160 MG per tablet 08/27/2024 10/27/2024 Discontinued(Therapy completed)Symbicort 160/4.5 inhalation aerosol with adapter (3 sources)Start: 25-26-3181Annyhvqbt 160/4.5 inhalation aerosol with adapter Refill(s) 0 Start Date: 02/06/22 Status: Sbottkc51 actuat tiotropium 0.0025 mg/actuat inhalation spray (7 sources)AnticholinergicStart: 07-35-4018Wrwuazy Respimat 60 ACT 2.5 mcg/inh inhalation aerosol Refills(s) 0 Start Date: 02/06/22 Status: Orderedtake 2 puff(s) by inhalation in the morningtiotropium (Spiriva Respimat) 2.5 MCG/ACT inhaler Inhale 2 puffs in the morning. 0 Activetake 2 puff(s) by inhalation twice daily Spiriva Respimat 2.5 MCG/ACT 2 puffs Inhalation TWICE A DAY ActiveTirzepatide (2 sources)Start: 03-54-8793Jocppgfbvgk (Mounjaro) 15 MG/0.5ML solution auto-injector (20 sources)Start: 54-55-2430ypyhuj 15 mg by subcutaneous injection every week Tirzepatide (Mounjaro) 15 MG/0.5ML solution auto-injector Indications: Type 2 diabetes mellitus with other circulatory complications (HCC) Inject 15 mg under the skin 1 (one) time per week 6 mL 1 02/27/2025 ActiveStart: 56-14-6166krpwun 15 mg by subcutaneous injection every weekTirzepatide (Mounjaro) 15 MG/0.5ML solution auto-injector Indications: Type 2 diabetes mellitus with other circulatory complications (HCC) INJECT 15MG SUBCUTANEOUSLY ONCE A WEEK 6 mL 1 07/07/2024 ActiveStart: 62-76-2810vsbame 15 mg by subcutaneous injection every weekTirzepatide (Mounjaro) 15 MG/0.5ML solution auto-injector Indications: Type 2 diabetes mellitus with other circulatory complications INJECT 15MG SUBCUTANEOUSLY ONCE A WEEK 6 mL 1 07/07/2024 ActiveStart: 82-78-9474moenpz 15 mg by subcutaneous injection every weekTirzepatide [...] oral tablet (20 sources)Partial Cholinergic Nicotinic AgonistStart: 22-81-9177vniq 1 tablet by mouth twice dailyStart: 12-19-2024 End: 35-78-7374tdix 1 tablet by mouth in the morningvarenicline (Chantix) 1 MG tablet Indications: Tobacco user , Encounter for smoking cessation counseling TAKE 1 TABLET BY MOUTH IN THE MORNING AND 1 TABLET BEFORE BEDTIME. TAKE WITH FULL GLASS OF WATER. 60 tablet 1 03/09/2025 ActiveStart: 08-27-2024 End: 81-38-2274ecgg 1 tablet by mouth in the morningvarenicline (Chantix) 1 MG tablet Indications: Tobacco user , Encounter for smoking cessation counseling Take 1 tablet (1 mg) by mouth in the morning and 1 tablet (1 mg) before bedtime. Take with full glass of water.. 60 tablet 1 08/27/2024 ActiveStart: 12-05-2023 End: 60-00-5671Ohoyayxlqbs Tartrate, Starter, 0.5 MG X 11 & 1 MG X 42 tablet [facility]23 07/14/2024 Discontinued (Therapy completed)Start: 35-78-6332Cmwhivancmv Tartrate, Starter, 0.5 MG X 11 & 1 MG X 42 tablet therapy pack [facility] 12/05/2023 Active Completed/Discontinued Medications MedicationDrug Class(es)DatesSig (Normalized)Sig (Original)amoxicillin 875 mg / clavulanate 125 mg oral tablet (6 sources)Penicillin-class AntibacterialStart: 12-05-2024 End: 40-64-2943qbni 1 tablet by mouth every twelve hoursamoxicillin-clavulanate (Augmentin) 875-125 MG tablet Take 1 tablet by mouth every 12 (twelve) hours 12/05/2024 01/26/2025 Discontinued (Therapy completed)cephalexin 500 mg oral capsule (9 sources)Cephalosporin AntibacterialStart: 2024 End: 05-46-9224hxzwjmoxsu (Keflex) 500 MG capsule 2024 10/27/2024 Discontinued (Therapy completed)Glucose Blood (ACCU-CHEK JAQUI PLUS ) (14 sources) End: 92-55-4170Lmimlyl Blood (ACCU-CHEK JAQUI PLUS ) 4 (four) times a day. 07/14/2024 Discontinued (Therapy completed)Glucose Blood (ACCU-CHEK JAQUI PLUS ) 4 (four) times a day. ActiveGlucose Blood (ACCU-CHEK JAQUI PLUS ) 4 (four) times a day. 0 Active3 ml liraglutide 6 mg/ml pen injector (6 sources)GLP-1 Receptor Agonist End: 21-97-8639nlwdfjbkyhp (Victoza) 18 MG/3ML injection Inject under the skin Daily 07/14/2024 Discontinued (Therapy completed)naproxen 500 mg oral tablet (2 sources)Nonsteroidal Anti-inflammatory DrugStart: 12-13-2017 End: 74-74-6463ogwe 1 tablet by mouth twice daily at mealtimeNaproxen 500 mg tablet Discontinued 500 MG PO Twice daily 20 0 December 13, 2017 12:00am April 05, 2025 12:53pm administer with food or milknortriptyline 50 mg oral capsule (18 sources)Tricyclic AntidepressantStart: 12-13-2017 End: 92-01-7407rbek 1 capsule by mouth once daily at bedtimeNortriptyline 50 mg Capsule Discontinued 50 MG PO Daily at bedtime December 13, 2017 12:00am April 05, 2025 12:53pmubrogepant 100 mg oral tablet (12 sources) End: 43-83-9321ohuh 1 tablet by mouth every twenty-four hours as needed Ubrogepant (Ubrelvy) 100 MG tablet Take 100 mg by mouth Daily as needed 07/14/2024 Discontinued (Therapy completed) Problems Active Problems Problem ClassificationProblemDateDocumented DateEpisodic/ChronicAbdominal pain (6 sources)Left flank pain; Translations: [Lower abdominal pain, unspecified] Onset: 572607-96-9390VuarxowdYogfdzjk foot deformities (1 source)Other hammer toe(s) (acquired), right foot; Translations: [OTHER HAMMER TOES ACQUIRED RT FOOT]Onset: 74-87-9507FehltfxIntsinmk foot deformities (1 source)Other hammer toe(s) (acquired), left foot; Translations: [OTHER HAMMER TOES ACQUIRED LT FOOT]Onset: 24-34-7087XqwvzxjPvldbwc disorders (20 sources)Mixed anxiety and depressive disorder; Translations: [Anxiety disorder, unspecified]Onset: 369291-46-6671OlpxonmBynepe (20 sources)Asthma; Translations: [Unspecified asthma, uncomplicated]Onset: 179806-69-6768TjophsdXhtbps of cervix (20 sources)Malignant tumor of cervix; Translations: [Malignant neoplasm of cervix uteri, unspecified]Onset: 042361-65-1491SjctgqpFtuezx of cervix (2 sources)History of malignant neoplasm of cervix; Translations: [Personal history of malignant neoplasm of cervix uteri]04-54-0792GsfklixcBiurlxi kidney disease (5 sources)Chronic kidney disease; Translations: [Chronic kidney disease, unspecified]Onset: 02-20-2022 Resolved: 55-79-7464IawyxziEtdeycx obstructive pulmonary disease and bronchiectasis (20 sources)Pulmonary emphysema; Translations: [Chronic obstructive pulmonary disease with (acute) exacerbation]Onset: 864766-23-6138CuzxvykBfozlnk ulcer of skin (20 sources)Non-pressure chronic ulcer of other part of right lower leg limited to breakdown of skin; Translations: [Non-pressure chronic ulcer of other part of left lower leg limited to breakdown of skin]Onset: 962032-59-5715Vwwrshv Congestive heart failure; nonhypertensive (20 sources)Chronic diastolic heart failure; Translations: [Chronic diastolic (congestive) heart failure]Onset: 268486-30-4925GbjlazgJfwipsja mellitus with complications (20 sources)Disorder of kidney due to diabetes mellitus; Translations: [Type 2 diabetes mellitus with diabetic chronic kidney disease]Onset: 02-20-2022 Resolved: 95-93-2883EupcvrwEknzaibt mellitus without complication (13 sources)Type 2 diabetes mellitus; Translations: [Type 2 diabetes mellitus without complications]Onset: 730072-94-6629RbcjfgwBkdihungl of lipid metabolism (20 sources)Pure hypercholesterolemia, unspecified; Translations: [Hyperlipidemia, unspecified]Onset: 343375-76-2323NybvxtjZzswxteqmm disorders (20 sources)Gastro-esophageal reflux disease without esophagitis; Translations: [Gastroesophageal reflux disease]Onset: 12-05-2022 Resolved: 675990-51-4599QbivicjUddbwhcxc hypertension (20 sources)Hypertensive disorder; Translations: [Essential (primary) hypertension]Onset: 686387-81-7367LdeicszGygnndnvmvdfe symptoms and ill- defined conditions (20 sources)Mixed incontinence; Translations: [Incontinence]Onset: 02-06-2022 ChronicGout and other crystal arthropathies (20 sources)Gout; Translations: [Gout, unspecified]Onset: ChronicHypertension with complications and secondary hypertension (5 sources)Chronic kidney disease due to hypertension; Translations: [Hypertensive chronic kidney disease withstage 1 through stage 4 chronic kidney disease, or unspecified chronic kidney disease]Onset: 02-20-2022 Resolved: 30-47-6248GfczayqHxrh disorders (1 source)Major depressive disorder, single episode, unspecified; Translations: [ANASTACIO DEPRESS D/O SINGLE EPIS UNS]Onset: 37-41-1095GtkirldHetnjbwrxitrd gastroenteritis (1 source)Noninfective gastroenteritis and colitis, unspecified; Translations: [NONINFECTIVE GE AND COLITIS UNS]Onset: 16-96-5379BerqoyozKrzrhorpwbr deficiencies (20 sources)Vitamin D deficiency; Translations: [Vitamin D deficiency, unspecified]Onset: 562315-02-1599QijxkvwQaeoogyosmzxva (20 sources)Arthritis; Translations: [Unspecified osteoarthritis, unspecified site]Onset: 735970-55-4117BmpfoqhFbblz aftercare (1 source)Other fci (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 therapy; Translations: [OTH MCFP CURRENT DRUG THERAPY]Onset: 17-27-2903QuoceuezXosgo aftercare (1 source)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 attack controller (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; Translations: [MCFP CURRENT USE OF ASPIRIN]Onset: 49-90-7752BcxenifzJcgto aftercare (6 sources)Long-term current use of insulin; Translations: [senior care (current) use of insulin]72-39-6261WonnulhdUqayf and ill-defined heart disease (20 sources)Cardiomegaly; Translations: [Cardiomegaly]Onset: 10-25-2017 76-44-8624GnntvyrKzpop and ill-defined heart disease (1 source)Cardiomegaly; Translations: [Cardiomegaly]Onset: 38-69-3459Vscoluf Other and unspecified benign neoplasm (1 source)Benign lipomatous tumor; Translations: [Benign lipomatous neoplasm of other sites]Onset: 25-29-3648PoqyiayuWngrh bone disease and musculoskeletal deformities (1 source)Acquired absence of other left toe(s); Translations: [ACQUIRED ABSENCE OF OTHER LEFT TOES]Onset: 39-83-3983SdjzmdxpEpxaa diseases of kidney and ureters (1 source)Urinary tract obstruction; Translations: [Other obstructive and reflux uropathy]Onset: 80-37-6445JxnbyhykSutgc diseases of veins and lymphatics (1 source)Chronic venous hypertension (idiopathic) with ulcer and inflammation of bilateral lower extremity; Translations: [CHRN KEO HTN ULCR INFLAM ALEX LW EXT]Onset: 74-73-3289GfjfgidLabni diseases of veins and lymphatics (1 source)Chronic venous hypertension (idiopathic) with ulcer of left lower extremity; Translations: [CHRON VENOUS HTN W/ULCER LT LW EXT]Onset: 09-01-2022 ChronicOther diseases of veins and lymphatics (1 source)Lymphedema, not elsewhere classified; Translations: [LYMPHEDEMA NOT ELSEWHERE CLASSIFIED]Onset: 93-88-8023QeasqpkRnyiw diseases of veins and lymphatics (5 sources)Chronic peripheral venous hypertension with lower extremity complication; Translations: [Chronic venous hypertension (idiopathic) with ulcer of bilateral lower extremity]Onset: 483643-50-2538ZhegggqYgwsa diseases of veins and lymphatics (20 sources)Chronic peripheral venous hypertension; Translations: [Chronic venous hypertension (idiopathic) with ulcer of bilateral lower extremity]Onset: 089627-25-6536MoxoktuGpmih diseases of veins and lymphatics (18 sources)Stasis dermatitis and venous ulcer of right lower extremity due to chronic peripheral venous hypertension; Translations: [Chronic venous hypertension (idiopathic) with ulcer and inflammation of rightlower extremity] Onset: 168228-49-4381TmdmsiuOwvhj endocrine disorders (2 sources)Disorder of adrenal gland; Translations: [Other specified disorders of adrenal gland]Onset: 79-21-5970XmfrhdoLkzuj endocrine disorders (20 sources)Adrenal mass; Translations: [Disorder of adrenal gland, unspecified] Onset: 798097-53-8928AevypdsXwrev endocrine disorders (2 sources)Disorder of adrenal gland, unspecifiedOnset: 02-20-2022 Resolved: 59-59-1270GzrzoijKtfxt endocrine disorders (5 sources)Other specified disorders of adrenal gland; Translations: [OTHER SPEC DISORDERS ADRENAL GLAND]Onset: 25-80-5385AlacvixOgjlq gastrointestinal disorders (3 sources)Adrenal arpr08-63-9651WssilypcXjctr lower respiratory disease (1 source)Hypoxemia; Translations: [HYPOXEMIA]Onset: 25-51-2369LgzjqdkbQoipg nervous system disorders (5 sources)Chronic pain syndrome; Translations: [CHRONIC PAIN SYNDROME]Onset: 19-07-5685FxrxjmdMhjko nervous system disorders (1 source)Other chronic pain; Translations: [OTHER CHRONIC PAIN]Onset: 62-47-5234UhjdaebEdjzf non-traumatic joint disorders (4 sources)Pain in right hip; Translations: [PAIN IN RIGHT HIP]Onset: 04-27-2022 EpisodicOther nutritional; endocrine; and metabolic disorders (2 sources)Localized adiposity; Translations: [Localized adiposity]ChronicOther nutritional; endocrine; and metabolic disorders (20 sources)Body mass index 40+ - severely obese; Translations: [Body mass index (BMI) 50.0-59.9, adult]Onset: 212976-77-5400QstkaadCupkt nutritional; endocrine; and metabolic disorders (3 sources)Body mass index (BMI) 50.0-59.9, adult; Translations: [BODY MASS INDEX BMI 50.0-59.9 ADULT]Onset: 87-59-2821DppokjqMsecp nutritional; endocrine; and metabolic disorders (3 sources)Morbid (severe) obesity due to excess calories; Translations: [MORBID SEVERE OBES D/T EXCESS NHI]Onset: 63-12-2978EoiowsdSyfbg nutritional; endocrine; and metabolic disorders (1 source)Obesity, unspecified; Translations: [OBESITY UNSPECIFIED]Onset: 30-39-0819YeuppzyUwtch nutritional; endocrine; and metabolic disorders (20 sources)Obesity caused by energy imbalance; Translations: [Morbid (severe) obesity due to excess calories]Onset: 789022-74-0568QarlncxDyfvw screening for suspected conditions (not mental disorders or infectious disease) (1 source)Encounter for screening mammogram for malignant neoplasm of breast; Translations: [ENC SCR MAMMO MALIG NEOPLASM BREAST]Onset: 43-53-4688Alshclex Other skin disorders (2 sources)Bilateral localized swelling of lower legs; Translations: [Localized swelling, mass and lump, lowerlimb, bilateral]33-88-4109EwgzkcqaUsxtw upper respiratory disease (20 sources)Allergic rhinitis; Translations: [Other allergic rhinitis]Onset: 094718-78-7358PnecaozQeswkmiksh and visceral atherosclerosis (20 sources)Peripheral vascular disease, unspecified; Translations: [Peripheral vascular disease, unspecified]Onset: 349625-95-4873WsswlocScudrkbao heart disease (20 sources)Pulmonary hypertension; Translations: [Pulmonary hypertension, unspecified]Onset: 735177-51-8821SrlegzbTaodkrvq codes; unclassified (3 sources)Obstructive sleep apnea (adult) (pediatric); Translations: [OBSTRUCTIVE SLEEP APNEA]Onset: 62-31-0498GbjztyzPjnjqsey codes; unclassified (20 sources)Obstructive sleep apnea syndrome; Translations: [Obstructive sleep apnea (adult) (pediatric)]Onset: 394726-11-0977IzeeeocNmhrthvp codes; unclassified (1 source)Acquired absence of other specified parts of digestive tract; Translations: [ACQ ABSENCE OTH PART DIGESTV TRACT]Onset: 97-76-6774Qxvnfxuq Residual codes; unclassified (1 source)Acquired absence of both cervix and uterus; Translations: [ACQUIRED ABSENCE BOTH CERVIX AND UTERUS]Onset: 89-07-9145VhphxpceLglidchr codes; unclassified (1 source)Family history of malignant neoplasm of ovary; Translations: [FAM HX MALIGNANT NEOPLASM OVARY]Onset: 05-47-5713FofpjinwUzrinaqq codes; unclassified (1 source)Family history of malignant neoplasm, unspecified; Translations: [FAM HX MALIGNANT NEOPLASM UNS]Onset: 32-30-1921DxcwwjblVjcnauhgd-related disorders (20 sources)Nicotine dependence; Translations: [Nicotine dependence, unspecified, uncomplicated]Onset: 86-43-0111RmcannkRrbbmhx on above:Added secondary to documentation in Social History.Unclassified (1 source)MCFP INJECT NONINSULN ANTIDIAB; Translations: [MCFP INJECT NONINSULN ANTIDIAB]Onset: 79-35-6701Ybcinbpnewbz (3 sources)CONTACT W/AND (SUSP) EXPOS COVID-19; Translations: [CONTACT W/AND (SUSP) EXPOS COVID-19]Onset: 14-14-5051Jhnwzdenvrwa (3 sources)LOW BACK PAIN, UNSPECIFIED; Translations: [LOW BACK PAIN, UNSPECIFIED]Onset: 91-33-9638Wgyzrqtakitz (1 source)Obesity, class 3; Translations: [Obesity, class 3]Onset: 11-14-2023 Viral infection (1 source)COVID-19; Translations: [COVID-19]Onset: 09-29-2022 Past or Other Problems Problem ClassificationProblemDateDocumented DateEpisodic/ChronicAcquired foot deformities (1 source)Other deformities of toe(s) (acquired), left foot; Translations: [OTHER DEFORMITIES TOES ACQ LT FOOT]Onset: 93-59-5329Qdfoqvps Administrative/social admission (20 sources)Patient encounter status; Translations: [Dietary counseling and surveillance]Onset: 621386-64-8497ZtmjnmzqGewhkvex of urinary tract (20 sources)Kidney stone; Translations: [Calculus of kidney]Onset: 02-06-2022 EpisodicE Codes: Natural/environment (1 source)Other and unspecified overexertion or strenuous movements or postures, initial encounter; Translations: [OTH AND UNS OVREXRT/STRN MVMT/POS INT]Onset: 92-79-6245FerzyzvlOftcq of unknown origin (18 sources)Fever; Translations: [Fever, unspecified]Onset: EpisodicGenitourinary symptoms and ill-defined conditions (20 sources)Proteinuria; Translations: [Proteinuria, unspecified]Onset: 02-06-2022 Resolved: 26-78-1298GgulpgdeVijctwjj; including migraine (20 sources)Headache; Translations: [Headache disorder]Onset: 01-17-2024 51-18-4545SfrswvmlEmcrmvctxfhjs and screening for infectious disease (20 sources)Encounter for screening for other infectious and parasitic diseases; Translations: [Anti-nuclear factor positive]Onset: 683275-20-5666Mctamafz Mood disorders (20 sources)Mood disorders; Translations: [DEPRESSION UNSPECIFIED]Onset: 930896-02-9904Lddenrw (20 sources)Tinea unguium; Translations: [Candidiasis of vagina]Onset: 35-52-9812JgwudzqtPnprkuknxjw deficiencies (20 sources)Vitamin deficiency; Translations: [Vitamin deficiency, unspecified] Onset: 538277-59-6820CbqnqtzkUnbqi aftercare (3 sources)senior care (current) use of insulin; Translations: [MCFP CURRENT USE OF INSULIN]Onset: 31-17-1898QkmqipuzApbqk aftercare (20 sources)Long-term current use of inhaled steroid; Translations: [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 attack controller (current) use of inhaled steroids]Onset: 628150-71-5837PobzmzyrXcjrq and unspecified benign neoplasm (20 sources)Myelolipoma of adrenal gland; Translations: [Benign lipomatous neoplasm of other sites]Onset: 702981-20-5706EqqfoarlHetyq connective tissue disease (4 sources)Other muscle spasm; Translations: [OTHER MUSCLE SPASM]Onset: 58-10-3887RhabciikNhvsb diseases of veins and lymphatics (20 sources)Vascular insufficiency; Translations: [Venous insufficiency (chronic) (peripheral)]Onset: 953419-08-5499VjldkdhjSkqgs diseases of veins and lymphatics (2 sources)Venous insufficiency (chronic) (peripheral); Translations: [Venous insufficiency (chronic) (peripheral)]Onset: 78-10-2389KeqijombTqhny hematologic conditions (1 source)Secondary polycythemiaOnset: 03-08-2022 Resolved: 18-09-6798PhvbdxipSaihs nervous system disorders (20 sources)Reduced mobility; Translations: [Other abnormalities of gait and mobility]Onset: 189548-64-9194WusarmmoHcxdu non-traumatic joint disorders (1 source)Effusion, left knee; Translations: [EFFUSION LEFT KNEE]Onset: 16-44-6608YpnfnomeAkafs non-traumatic joint disorders (1 source)Pain in left knee; Translations: [PAIN IN LEFT KNEE]Onset: 07-26-2022 EpisodicOther non-traumatic joint disorders (20 sources)Pain in right knee; Translations: [Pain in joint, lower leg]Onset: 951426-78-7291McsgwafdNhhar nutritional; endocrine; and metabolic disorders (20 sources)Severe obesity; Translations: [Morbid (severe) obesity due to excess calories]Onset: 07-10-2023 Resolved: 656823-17-7545KuxismnBruyw nutritional; endocrine; and metabolic disorders (20 sources)Excess panniculus of abdomen; Translations: [Localized adiposity] Onset: 10-25-2017 Resolved: 486595-85-5852EnoopzgGakod skin disorders (1 source)Nail dystrophy; Translations: [NAIL DYSTROPHY]Onset: 09-01-2022 EpisodicOther skin disorders (1 source)Corns and callosities; Translations: [CORNS AND CALLOSITIES]Onset: 68-38-1450HsahpieaHmqlc skin disorders (1 source)Xerosis cutis; Translations: [XEROSIS CUTIS]Onset: 81-46-2905Wsfcohst Other skin disorders (20 sources)Hyperpigmentation of skin; Translations: [Disorder of pigmentation, unspecified]Onset: 098346-80-4722DxxwypyrQaexqh media and related conditions (20 sources)Acute suppurative otitis media without spontaneous rupture of ear drum; Translations: [Acute suppurative otitis media without spontaneous rupture of ear drum, left ear]Onset: 01-17-2024 Resolved: 397489-42-6607CwsexfqeUsdjctocsc disorders (not diabetes) (20 sources)Acute pancreatitis without necrosis or infection, unspecified; Translations: [Pancreatitis]Onset: 061745-46-5206PkmkdhqlFrnqnmyij (except that caused by tuberculosis or sexually transmitted disease) (20 sources)Pneumonia; Translations: [Pneumonia, unspecified organism]Onset: 09-17-2023 Resolved: 210523-02-6213IshhkljwFspzkagv codes; unclassified (3 sources)Localized edema; Translations: [LOCALIZED EDEMA]Onset: 09-01-2022 EpisodicResidual codes; unclassified (20 sources)Edema; Translations: [Edema, unspecified]Onset: 07-10-2023 Resolved: 316965-44-8638HznhblliGefsqvaj codes; unclassified (20 sources)Bilateral lower limb edema; Translations: [Localized edema]Onset: 730978-26-4907LwifxrqlZncyjynq codes; unclassified (20 sources)Insomnia; Translations: [Insomnia, unspecified]Onset: 09-17-2023 22-02-5061KwhcdddfJajvyqgx codes; unclassified (20 sources)Tobacco user; Translations: [Tobacco use]Onset: 09-17-2023 Resolved: 978372-32-5563CsxunnslVlausinm codes; unclassified (20 sources)Edema of lower extremity; Translations: [Localized edema]Onset: 09-17-2023 Resolved: 063093-86-8714RqtrbhddYhwy and subcutaneous tissue infections (20 sources)Cellulitis of right lower limb; Translations: [Cutaneous abscess of left axilla]Onset: 41-06-2903FtizvpmiFgydogsnjau; intervertebral disc disorders; other back problems (20 sources)Lumbar radiculopathy; Translations: [Radiculopathy, lumbar region] Onset: 544039-75-5983FhnpshdtXvytnhp and strains (1 source)Strain of muscle, fascia and tendon of lower back, initial encounter; Translations: [STRAIN MUSC FASC TENDON LW BACK INT]Onset: 91-94-1051Rheakcwk Unclassified (1 source)CONTACT W/AND (SUSP) EXPOS COVID-19; Translations: [CONTACT W/AND (SUSP) EXPOS COVID-19]Onset: 57-24-3661Hpamabsdoaxk (1 source)LOW BACK PAIN, UNSPECIFIED; Translations: [LOW BACK PAIN, UNSPECIFIED] Onset: 40-94-6448Dozsaobbyymv (4 sources)Patient encounter rwkxeh68-14-5744Fqfcgclwaosu (1 source)Obesity, class 3; Translations: [Obesity, class 3]Onset: 08-08-2024 Varicose veins of lower extremity (20 sources)Varicose veins of right lower extremity with ulcer of unspecified site; Translations: [Varicose veins of lower extremities with ulcer]Onset: 06-19-2024 Resolved: 673541-30-5011Pnvfcvcx Results Test NameValueInterpretationReference RangeFacility.eGFRon 01-01-3360IVZ/1.73 sq M.predicted MDRD (S/P/Bld) [Vol rate/Area]mL/min/{1.73_m2}Normal>=60BlCleveland Clinic Avon HospitalComment on above:Result Comment: [facility] have implemented the eGFR calculation [...] Age = yearsPerformed By: #### EGFR #### [address] [address]GDW w/ Diffon 81-67-2299Uheprbfolvy distribution width (RBC) [Ratio]20.0 %High11.6-14.8BHolzer HospitalComment on above: Performed By: #### CBC #### [address] [address]Bnwlrpvsew (Bld) [Volume fraction]53.8 %High36.0-46.0[facility] CenterComment on above:Performed By: #### CBC #### [address] [address]Enexgaaklv (Bld) [Mass/Vol]17.7 g/tLKdsa75.0-16.0[facility] CenterComment on above:Performed By: #### CBC #### [address] [address]RPG (RBC) [Entitic mass]27.1 mrPskcys51.0-35.0[facility] CenterComment on above:Performed By: #### CBC #### [address] [address]VXCN55.9 %Qdeexr89.0-37.0[facility] CenterComment on above:Performed By: #### CBC #### [address] [address]LII (RBC) [Entitic vol]82.2 fSKedxag20.0-100.0[facility] CenterComment on above:Performed By: #### CBC #### [address] [address]Zcuvnfec249 x10*3/tlBIom613-757VcqbriemrAshtabula County Medical Center Comment on above:Performed By: #### CBC #### [address] [address]Tlnzdpoa mean volume (Bld) [Entitic vol]10.4 fLNormal6.7-10.6 [facility] CenterComment on above:Performed By: #### CBC #### [address] [address]OUL2.54 x10*6/mcLHigh3.80-5.20[facility] Comment on above:Performed By: #### CBC #### [address] [address]HIJ63.6 x10*3/mcLHigh4.5-11.0[facility] Comment on above:Performed By: #### CBC #### [address] [address]HCNaa 04-93-2828BDR [Mass/Vol]35.5 mg/LHigh0.0-9.9BHolzer HospitalComment on above:Result Comment: For normal applications [...] FUTURE CARDIAC EVENTS.Performed By: #### CRP #### [address] [address]Hrtu Autoon 28-08-5310Zycz Absolute0.1 x10*3/mcLNormal0.0-0.2 [facility] CenterComment on above:Performed By: #### .Automated Diff #### [address] [address]Corrxctyf/100 WBC (Bld)0.5 %Normal0.0-1.5BHolzer HospitalComment on above:Performed By: #### .Automated Diff #### [address] [address]Ytg Absolute0.3 x10*3/mcLNormal0.0-0.4BMemorial Health System Sel[facility] SystemComment on above:Performed By: #### .Automated Diff #### [address] [address]Jfktdxsuhpw/100 WBC (Bld)2.3 %Normal0.0-5.4BHolzer HospitalComment on above:Performed By: #### .Automated Diff #### [address] [address]Dzybg Absolute2.8 x10*3/mcLNormal1.0-4.8BHolzer HospitalComment on above:Performed By: #### .Automated Diff #### [address] [address]Qdsttblzuta/100 WBC (Bld)22.5 %Low27.2-40.8BHolzer HospitalComment on above:Performed By: #### .Automated Diff #### [address] [address]Nnyb Absolute0.6 x10*3/mcLNormal0.1-1.1BHolzer HospitalComment on above:Performed By: #### .Automated Diff #### [address] [address]Jyjxgouqa/100 WBC (Bld)5.1 %Normal3.7-11.9BHolzer HospitalComment on above:Performed By: #### .Automated Diff #### [address] [address]Aitwlm Absolute8.8 x10*3/mcLHigh1.8-7.7BHolzer HospitalComment on above:Performed By: #### .Automated Diff #### [address] [address]Bgjtuq Auto69.6 %Svwklv58.2-70.8BHolzer Hospital Comment on above:Performed By: #### .Automated Diff #### [address] [address]LBXhg 89-17-6530Ufg Rate12 mm/hrNormal0-30[facility] CenterComment on above:Performed By: #### ESR #### [address] [address]Rdjlxdxl Office/Clinic Noteon 90-79-3892Kvgcnehl Office/Clinic NoteThe content of this note was [...] solely to facilitate the conversation. Missing Attachment [id number] Can be viewed in source system The [...] prescription lotion to the wounds. She takes Thorofare for pain and daily baby aspirin. She smokes and is on disability, and does not require [facility] paperwork. She reports recent blood flow [...] Orthopedic: Bony foot structur (more content not included)...[facility] CenterComment on above:Order Comment: Missing Attachment [id number] Can be viewed in source systemMissing Attachment [id number] Can be viewed in source system Provider Letteron 72-57-5442Azihbytw Letter Mckayla Blas, DINING ROOM COORDINATOR-CYBER INCIDENT ANALYST [address] [place] [address] Re: Mitzi Macias Date of Visit: 05/18/2025 Dear Mckayla Blas APRN-SAYDA, [facility] Medicine [address] [place] [address], [id number] Date: 05/18/2025 12:46:10 Please see attached progress/office note regarding mutual patient, Mitzi Macias who was seen on04/29/2025 14:16:18. Please see attached note for further details and please call with any questions or concerns. Sincerely, KANDI Sampson Providers: The following document(s) were included in the letter: May 18, 2025 12:43:05 EST - (05/18/2025) Office Visit Note CAANormal [facility] CenterRenal Panelon 63-27-2831Qpdawlw [Mass/Vol]3.5 g/dL Low3.7-5.3BHolzer HospitalComment on above:Performed By: #### RENAL #### [address] [address]Pfrhy gap [Moles/Vol]6 mmol/LNormal4-12[facility] Medical CenterComment on above:Performed By: #### RENAL #### [address] [address]HAX Crea Ratio25.0 crhtaUcujmu59.0-25.0[facility] CenterComment on above:Performed By: #### RENAL #### [address] [address]Crcanyr [Mass/Vol]9.0 mg/dLNormal8.6-10.3BHolzer HospitalComment on above:Performed By: #### RENAL #### [address] [address]Oqcdbqql [Moles/Vol]105 mmol/ITlzngi19-689QvkndotzyAshtabula County Medical CenterComment on above:Performed By: #### RENAL #### [address] [address]QY5 [Moles/Vol]30 mmol/RTdjnls35-57GbpibirmbAshtabula County Medical CenterComment on above:Performed By: #### RENAL #### [address] [address]Siwtvgdogn [Mass/Vol]0.80 mg/dLNormal0.60-1.20[facility] CenterComment on above:Performed By: #### RENAL #### [address] [address]Dpisaek [Mass/Vol]137 mg/nNIiif94-38SpuwbovljAshtabula County Medical CenterComment on above:Performed By: #### RENAL #### [address] [address]Ohdlshwma [Mass/Vol]3.6 mg/dLNormal2.5-4.6BHolzer HospitalComment on above:Performed By: #### RENAL #### [address] [address]Noegjhvss [Moles/Vol]4.5 mmol/LNormal3.4-4.8BHolzer HospitalComment on above:Performed By: #### RENAL #### [address] [address]Jpxpqz [Moles/Vol]141 mmol/ORpzbte873-759AorumycnwAshtabula County Medical CenterComment on above:Performed By: #### RENAL #### [address] [address]Dmel nitrogen [Mass/Vol]20 mg/dLNormal7-25[facility] CenterComment on above:Performed By: #### RENAL #### [address] [address]Egcpsyayysm 05-30-3664MyjqoxdetEwnlsetjq From: Maria Elena Negrete To: EU - [...] ) Other: PROVIDER RELATED REMINDER:_ ( ) Process Project Engineer ( ) Call Pharmacy ( ) Call [...] unable to leave a message at this time.[facility]UM[facility] HospitalVascular Office/Clinic Noteon 61-76-5042Xplcwssc Office/Clinic NoteChief Complaint Leg ulcer History of Present Illness Mitzi was referred by her security control center operator for evaluation of PVD. She has had ulcers in the bilateral lower extremities above the ankle for about a year. She has been seen by wound care in [facility]. They are applying compression with medicated wraps. [...] signed by Corinne Kellogg MD 04/23/25 11:56 TSamaritan North Health Center VL Ankle Brachial Indiceson 45-35-5660RN Ankle Brachial IndicesPreliminary Technologist Report Ankle/brachial index study was performed. Please see below for information. Forging Roll Operator: Zayra Ag, RVS Radiologist Report BILATERAL LOWER [...] please contact our Vascular Rehabilitation Department at [phone]. Final Signed by: Jose F Casanova MD Signed (Electronic Signature): 04.17.2025 3:28 pm Transcribed by: Jose F Casanova MD Transcribed DT/TM: 04.17.2025 3:12 (If Report is Signed, Electronically Signed in Other Vendor System)Normal [facility] CenterBasophils Auto (Bld) [#/Vol]Ordered By: Flynn Urias on 01-43-0184Fcgmcthlw (Bld) [#/Vol]0.1 10 3/uL0.0-0.1FDelaware County HospitalBasophils/100 WBC Auto (Bld)Ordered By: Flynn Urias on 46-32-8426Ozelgfron/100 WBC (Bld)0.6 %0.2-2.0[facility] Eosinophils/100 WBC Auto (Bld)Ordered By: Flynn Urias on 03-26-2025 Eosinophils/100 WBC (Bld)2.7 %0.9-7.0[facility] Erythrocyte distribution width Auto (RBC) [Ratio]Ordered By: Flynn Urias on 25-80-5818Umfoznbpzwv distribution width (RBC) [Ratio]16.4 %High11.0-15.0 [facility] HospitalGlomerular filtration rate (GFR) estimation in non- AmericanOrdered By: Flynn Urias on 64-28-5763VWK/1.73 sq M.predicted among non-blacks MDRD (S/P/Bld) [Vol rate/Area]mL/min/{1.73_m2}>=60 mL/min/1.73m 2FDelaware County HospitalHematocrit Auto (Bld) [Volume fraction]Ordered By: Flynn Urias on 42-07-1693Jjzvvgwmul (Bld) [Volume fraction]52.5 %High36.0-48.0[facility] HospitalHemoglobin [Mass/volume] in BloodOrdered By: Flynn Urias on 97-40-9546Xinodnbpae (Bld) [Mass/Vol]16.1 g/rWTash96.0-16.0[facility] HospitalLaboratory - Chemistry and Chemistry - challengeOrdered By: Flynn Urias on 03-26-2025 Albumin [Mass/Vol]2.8 g/dLLow3.4-5.0[facility] HospitalCalcium [Mass/Vol]8.6 mg/dL8.5-10.1FDelaware County HospitalChloride [Moles/Vol] 105 mmol/O26-487UoenslzymGeorgetown Behavioral HospitalCO2 [Moles/Vol]31.5 mmol/L 21.0-32.0[facility] HospitalCreatinine [Mass/Vol]0.69 mg/dL 0.55-1.02[facility] HospitalGFR/1.73 sq M.predicted MDRD (S/P/Bld) [Vol rate/Area]mL/min/{1.73_m2}>=60 mL/min/1.73m 2FDelaware County HospitalGlucose [Mass/Vol]147 mg/jZPmmh09-094FxkfjycqrGeorgetown Behavioral Hospital Potassium [Moles/Vol]4.2 mmol/L3.5-5.1FOhioHealth Grant Medical Centerodium [Moles/Vol]141 mmol/B656-820PrmcmeurmGeorgetown Behavioral HospitalUrea nitrogen [Mass/Vol]15.0 mg/dL7.0-18.0[facility] HospitalUrea nitrogen/Creatinine [Mass ratio]21.7 mg/mgGeorgetown Behavioral Hospital Laboratory - Hematology and Cell countsOrdered By: Flynn Urias on 03-26-2025 ESR (Bld) [Velocity]48 mm/hHigh<=30[facility] HospitalImmature granulocytes/100 WBC (Bld)0.3 %0.0-0.5FDelaware County Hospital Leukocytes [#/volume] corrected for nucleated erythrocytes in Blood by Automated counOrdered By: Flynn Urias on 84-18-6679FFL corrected for nucl RBC Auto (Bld) [#/Vol]10.0 10 3/uL4.0-11.0[facility] HospitalLymphocytes Auto (Bld) [#/Vol]Ordered By: Flynn Urias on 43-37-8991Cubasltyzco (Bld) [#/Vol]2.7 10 3/uL1.2-3.8[facility] HospitalLymphocytes/100 WBC Auto (Bld)Ordered By: Flynn Urias on 42-93-2841Gusbrpnwsig/100 WBC (Bld)27.2 % 20.5-60.0[facility] Auto (RBC) [Entitic mass]Ordered By: Flynn Urias on 19-53-1450IKN (RBC) [Entitic mass]27.2 pg26.7-34.0[facility] SouthHC Auto (RBC) [Mass/Vol]Ordered By: Flynn Urias on 90-17-1521IYOC (RBC) [Mass/Vol]30.7 g/dL29.9-35.2FDelaware County HospitalMCV Auto (RBC) [Entitic vol]Ordered By: Flynn Urias on 22-75-1732BIE (RBC) [Entitic vol]88.7 fL81.0-99.0[facility] HospitalMonocytes Auto (Bld) [#/Vol]Ordered By: Flynn Urias on 40-85-2431Neazvmhhs (Bld) [#/Vol] 0.5 10 3/uL0.3-0.8[facility] HospitalMonocytes/100 WBC Auto (Bld) Ordered By: Flynn Urias on 08-44-7003Lkkxsgmla/100 WBC (Bld)5.2 %1.7-12.0 [facility] HospitalNeutrophils Auto (Bld) [#/Vol]Ordered By: Flynn Urias on 46-03-6502Pkngqurvzxb (Bld) [#/Vol]6.4 10 3/uL1.4-6.5FDelaware County HospitalNeutrophils/100 WBC Auto (Bld)Ordered By: Flynn Urias on 61-40-7463Qrntgdbstya/100 WBC (Bld)64.0 %43.0-75.0[facility] HospitalNo Panel InformationOrdered By: Flynn Urias on 39-58-0837A-Reactive Protein, Quantitative3.94 mg/dLHigh<=0.50[facility] Eosinophils # (Auto)0.3 10 3/uL0.0-0.7FDelaware County HospitalImmature Granulocyte # (Auto)0.03 10 3/uL0.00-0.03[facility] Phosphorus Level3.5 mg/dL2.6-4.7FDelaware County HospitalPlatelet mean volume Auto (Bld) [Entitic vol]Ordered By: Flynn Urias on 62-26-0450Odtujtkz mean volume (Bld) [Entitic vol]12.8 fL9.5-13.5FDelaware County Hospital Platelets Auto (Bld) [#/Vol]Ordered By: Flynn Urias on 54-99-4522Ewnjxoaxz (Bld) [#/Vol]146 10 3/hHOqx911-650RleumbcogGeorgetown Behavioral HospitalRBC Auto (Bld) [#/Vol]Ordered By: Flynn Urias on 64-19-8270VNO (Bld) [#/Vol]5.92 10 6/uLHigh4.20-5.40Adams County Hospitalerum or plasma anion gap determinationOrdered By: Flynn Urias on 52-25-9822Extce gap [Moles/Vol]8.7 mmol/LFDelaware County HospitalBasophils Auto (Bld) [#/Vol]Ordered By: Price Arora on 06-34-6235Ppucoywxo (Bld) [#/Vol]0.1 10 3/uL0.0-0.1FDelaware County HospitalBasophils/100 WBC Auto (Bld)Ordered By: Price Arora on 57-42-0112Nkmcyyogo/100 WBC (Bld)0.4 %0.2-2.0[facility] Eosinophils/100 WBC Auto (Bld)Ordered By: Price Arora on 03-25-2025 Eosinophils/100 WBC (Bld)2.4 %0.9-7.0[facility] Erythrocyte distribution width Auto (RBC) [Ratio]Ordered By: Price Arora on 45-21-8857Jlokhoiipmt distribution width (RBC) [Ratio]16.4 %High11.0-15.0 [facility] HospitalGlomerular filtration rate (GFR) estimation in non- AmericanOrdered By: Price Arora on 18-63-8213KVN/1.73 sq M.predicted among non-blacks MDRD (S/P/Bld) [Vol rate/Area]mL/min/{1.73_m2}>=60 mL/min/1.73m 2FDelaware County HospitalHematocrit Auto (Bld) [Volume fraction]Ordered By: Price Arora on 86-43-3744Iexgruxgvf (Bld) [Volume fraction]56.6 %High36.0-48.0[facility] HospitalHemoglobin [Mass/volume] in BloodOrdered By: Price Arora on 75-86-1388Aljjlzkvcl (Bld) [Mass/Vol]17.4 g/dLTgtu74.0-16.0[facility] HospitalLaboratory - Chemistry and Chemistry - challengeOrdered By: Price Arora on 03-25-2025 Bilirubin Ql (U)NegativeNEGATIVEGeorgetown Behavioral HospitalGlucose (U) [Mass/Vol]NegativeNEGATIVEGeorgetown Behavioral HospitalKetones Ql (U) NegativeNEGATIVEGeorgetown Behavioral HospitalpH (U)8.0 [pH]5.0-9.0Ad[facility] County Hospitalpecific gravity (U) [Rel density]1.0201.005-1.025 [facility] HospitalUrobilinogen Qn (U)1.0 {Little'U}/dL0.2-1.0 [facility] HospitalCalcium [Mass/Vol]9.2 mg/dL8.5-10.1FDelaware County HospitalChloride [Moles/Vol]106 mmol/J31-725MkkeonpagGeorgetown Behavioral HospitalCO2 [Moles/Vol]36.9 mmol/LHigh21.0-32.0[facility] HospitalCreatinine [Mass/Vol]0.86 mg/dL0.55-1.02[facility] GFR/1.73 sq M.predicted MDRD (S/P/Bld) [Vol rate/Area]mL/min/{1.73_m2}>=60 mL/min/1.73m 2FDelaware County HospitalGlucose [Mass/Vol]164 mg/dLHigh 74-106[facility] HospitalPotassium [Moles/Vol]4.0 mmol/L3.5-5.1 [facility] County Hospitalodium [Moles/Vol]144 mmol/V797-653YpgyehdxaGeorgetown Behavioral HospitalUrea nitrogen [Mass/Vol]14.0 mg/dL7.0-18.0[facility] HospitalUrea nitrogen/Creatinine [Mass ratio]16.3 mg/mgGeorgetown Behavioral HospitalLaboratory - Hematology and Cell countsOrdered By: Price Arora on 38-85-2946Nhlydymj granulocytes/100 WBC (Bld)0.3 %0.0-0.5 [facility] HospitalLaboratory - Specimen informationOrdered By: Price Arora on 25-98-6826Fukeqrtrcr (U)CLEARCLEARFDelaware County HospitalColor (U)LT. YELLOWYELLOWGeorgetown Behavioral HospitalLaboratory - UrinalysisOrdered By: Price Arora on 10-22-8302Khnipci casts LM Ql (Urine sed) RAREGeorgetown Behavioral HospitalLeukocyte esterase Test strip Ql (U) NegativeNEGATIVEGeorgetown Behavioral HospitalMucus Ql (Urine sed)TRACE AbnormalNONE SEENGeorgetown Behavioral HospitalNitrite Ql (U)NegativeNEGATIVE [facility] HospitalProtein Ql (U)100 mg/dLAbnormalNEG/TRACE [facility] HospitalLeukocytes [#/volume] corrected for nucleated erythrocytes in Blood by Automated counOrdered By: Price Arora on 03-25-2025 WBC corrected for nucl RBC Auto (Bld) [#/Vol]11.8 10 3/uLHigh4.0-11.0[facility] HospitalLymphocytes Auto (Bld) [#/Vol]Ordered By: Price Arora on 23-27-6278Uecjazqupwq (Bld) [#/Vol]3.1 10 3/uL1.2-3.8[facility] HospitalLymphocytes/100 WBC Auto (Bld)Ordered By: Price Arora on 02-86-8339Iojdcdumgjp/100 WBC (Bld)26.4 %20.5-60.0[facility] Auto (RBC) [Entitic mass]Ordered By: Price Arora on 30-32-2216JMI (RBC) [Entitic mass]27.5 pg26.7-34.0[facility] SouthHC Auto (RBC) [Mass/Vol]Ordered By: Price Arora on 73-64-9696EOZY (RBC) [Mass/Vol]30.7 g/dL29.9-35.2FDelaware County HospitalMCV Auto (RBC) [Entitic vol] Ordered By: Price Arora on 14-14-3062WHD (RBC) [Entitic vol]89.4 fL81.0-99.0 [facility] HospitalMonocytes Auto (Bld) [#/Vol]Ordered By: Price Arora on 17-70-6526Deqnfgpfr (Bld) [#/Vol]0.6 10 3/uL0.3-0.8[facility] HospitalMonocytes/100 WBC Auto (Bld)Ordered By: Price Arora on 58-64-9002Bepieqpey/100 WBC (Bld)5.2 %1.7-12.0[facility] Neutrophils Auto (Bld) [#/Vol]Ordered By: Price Arora on 22-95-7385Jbfmzjfkgcg (Bld) [#/Vol]7.7 10 3/uLHigh1.4-6.5FDelaware County Hospital Neutrophils/100 WBC Auto (Bld)Ordered By: Price Arora on 03-25-2025 Neutrophils/100 WBC (Bld)65.3 %43.0-75.0[facility] HospitalNo Panel InformationOrdered By: Price Arora on 34-59-6690Ilprs BacteriaTRACE #/HPFAbnormalNONE SEENGeorgetown Behavioral HospitalUrine Culture ReflexedMarion HospitalUrine Occult BloodNegativeNEGATIVEGeorgetown Behavioral HospitalUrine Other CastsSEEN #/LPFAbnormalNONE [facility] - WestUrine Other CrystalsNone Seen #/HPFNone Corey HospitalUrine RBC0-2 #/HPF0-2FDelaware County Hospital Urine Squamous Epithelial CellsFEW #/LPFAbnormalNONE/RAREGeorgetown Behavioral HospitalUrine WBC0-2 #/HPFAbnormalNONE [facility] - WestEosinophils # (Auto)0.3 10 3/uL0.0-0.7FDelaware County Hospital Immature Granulocyte # (Auto)0.04 10 3/uLHigh0.00-0.03[facility] HospitalPlatelet mean volume Auto (Bld) [Entitic vol]Ordered By: Price Arora on 34-09-4676Skpsjrfb mean volume (Bld) [Entitic vol]12.4 fL9.5-13.5FDelaware County HospitalPlatelets Auto (Bld) [#/Vol]Ordered By: Price Arora on 78-73-9826Pvvrjhiqn (Bld) [#/Vol]160 10 3/rR412-238YzyvcegbgGeorgetown Behavioral HospitalRBC Auto (Bld) [#/Vol]Ordered By: Priceoh Arora on 73-29-3082QLD (Bld) [#/Vol]6.33 10 6/uLHigh4.20-5.40Ad[facility] Hospitalerum or plasma anion gap determinationOrdered By: Price Arora on 39-46-4285Cevwu gap [Moles/Vol]5.1 mmol/LFDelaware County HospitalVascular Office/Clinic Noteon 53-26-7113Vjdynzeg Office/Clinic NoteChief Complaint lle wound History of [...] She has had testing done at the [facility] last year which she brought with [...] Electronically signed by Omero Santana 03/23/25 12:01 [facility] HospitalPodiatry Office/Clinic Noteon 19-74-0670Tqyjwkzf Office/Clinic NoteThe content of this note was generated by an [employer] (AI) language dictation. The patient or guardian [...] of this note was generated by an [employer] (AI) language dictation. The patient or guardian [...] of this note was generated by an [employer] (AI) language dictation. The patient or [...] wraps (gauze, tila bandage, Coban II, tuba performance solutions specialist), Dakins solution, a 40-daycourse of antibiotics, and [...] other blood thinners. The patient resides in [place]. Review of Systems Constitutional: Negative for signs [...] their lower extremities Positi (more content not included)...[facility] Health CenterComment on above:Order Comment: Missing Attachment [id number] Can be viewed in source systemXR Tibia/Fibula Righton 93-43-0836JA Tibia/Fibula Right2 views right tib- fib demonstrate: [...] Is Signed, Electronically Signed in Other Vendor System)[facility] DaytonResults Follow-Upon 53-01-9432Qcjjyku Follow-Up [id number] Mitzi Macias 1970 F Date Provider Department Center 02/04/2025 Mikaela-AMI ORO CARDIOLOGY None Family History Problem Relation Age of Onset Heart attack Paternal Grandmother Family Status - Relation Status Age at Mother Father Paternal GrandmotherNZanesville City HospitalOrders Onlyon 80-83-2275Uxzxkz [id number] Mitzi Macias 1970 F Date Provider Department Center 01/30/2025 [id number], HISTORICAL [facility] Family History Problem Relation Age of Onset Heart attack Paternal Grandmother Family Status - Relation Status Age at Mother Father Paternal GrandmotherNZanesville City HospitalCA ECHO DOPPLER COMPLETEon 63-44-6858Atm[place] [address] Cardiology Report Signed Patient: MITZI MACIAS MR#: [id number] : 1970 Acct:[id number] Age/Sex: 54 / F ADM Date: 01/29/25 Loc: CARD Attending Dr: AMI ORO APRN Ordering Physician: AMI ORO APRN Date of Service: 01/29/25 Procedure(s): CA echo doppler complete Accession Number(s): [id number] cc: Mckayla Blas GAMEPLAY ENGINEER; AMI ORO APRN Patient Name: MITZI MACIAS MR#: [id number] : 1970 Exam Date: 01/29/2025 Ordering Doctor: AMI ORO CYBER INCIDENT ANALYST ECHOCARDIOGRAM REPORT PROCEDURE: CA ECHO DOPPLER COMPLETE [...] HERRERA Signed By: 01/29/251839 DD/ 39 TD/TT: Personal Lines Insurance Advisor:TBHRadiology, Radiologist, - 01/29/2025 [place] [address] Cardiology Report Signed Patient: MITZI MACIAS MR#: [id number] : 1970 Acct:[id number] Age/Sex: 54 / F ADM Date: 01/29/25 Loc: CARD Attending Dr: AMI ORO APRN Ordering Physician: AMI ORO APRN Date of Service: 01/29/25 Procedure(s): CA echo doppler complete Accession Number(s): [id number] cc: Mckayla Blas GAMEPLAY ENGINEER; AMI ORO APRN Patient Name: MITZI MACIAS MR#: [id number] : 1970 Exam Date: 01/29/2025 Ordering Doctor: [...] HERRERA Signed By: 01/29/251839 DD/ 39 TD/TT: [employer] Lines Insurance Advisor: [facility] InstituteRadiology Study observation (narrative)[facility] ECHO DOPPLER COMPLETEOrdered By: Radiologist Radiology on 28-01-1863NOFRFreeman Heart Institute Work Phone: Glucose (Bld) [Mass/Vol]on 06-23-2303Udtuemz Blood, QEY995 mg/dLFreeman Heart InstituteLaboratory - Hematology and Cell countson 01-29-2025 HbA1c (Bld) [Mass fraction]8.4 %[facility] InstituteNo Panel Informationon 01-29-2025 Interpretation and review of laboratory resultsAbnormalChildren's Mercy Northland HealthcareOffice Visiton 49-13-6887Qlpeqh-up [id number] Mitzi Macias 1970 F Date Provider Department Center 01/06/2025 Mikaela-AMI ORO Wilfredo Rojas Family History Problem Relation Age of Onset Heart attack Paternal Grandmother Family Status - Relation Status Age at Mother Father Paternal Grandmother Level of Service:35480 ID OFFICE/OUTPATIENT ESTABLISHED MOD MDM 30 MIN Reason for Visit and Comments: Congestive Heart Failure [127] Hypertension [544572] Hyperlipidemia [182]NormalMercy Health Anderson Hospital36on Regarding lab results from 10/08/2024: MD Mickie Merritt MA Lipids, ALT AST, and BMP are normal. HbA1c was not performed. Continue current management. LM on patient's VM.NormalMercy Health Anderson HospitalGlucose (Bld) [Mass/Vol]Ordered By: Mica Sauceda on 80-84-2893Rxaksvq Blood, POC97 mg/dLNOTX HealthcareLaboratory - Hematology and Cell countson 14-90-8214UtJ0z (Bld) [Mass fraction]7.4 %NOMS HealthcareNo Panel InformationOrdered By: Mica Sauceda on 09-62-0965TZXX HealthcareTBH UA (CLEAN/CATCH) MICROSCOPIC IF INDICATEon 62-71-4578BAVRHMPXC URINENegativeNEGATIVENOMS HealthcareBLOOD URINENegative NEGATIVENOMS HealthcareClarity (U)CLEARCLEARNOMS HealthcareColor (U)YELLOWYELLOW NOMS HealthcareGLUCOSE URINE UANegativeNEGATIVE mg/dLNOMS Healthcare Interpretation and review of laboratory resultsAbnormalNOMS HealthcareKetones Ql (U)NegativeNEGATIVE mg/dLNOMS HealthcareLeukocyte esterase Test strip Ql (U) NegativeNEGATIVENOMS HealthcareNITRITE URINENegativeNEGATIVENOMS HealthcarepH (U)5.5 [pH]5.0 - 9.0NOMS HealthcareProtein (U) [Mass/Vol]30 mg/dLAbnormal NEG/TRACENOMS HealthcareSPECIFIC GRAVITY URINE>=1.037Ptrupyvf4.005 - 1.025NOMS HealthcareURINE MICROSCOPIC INDICATEDYESNOMS HealthcareUROBILINOGEN URINE1.0 EU/dL0.2 - 1.0 EU/dLNOMS HealthcareCLINISYNBRISTOL COUNTY TUBERC[facility]IS HOSPITAL HealthcareALL CBC WITH AUTO DIFFon 16-86-6400ZQYPYAHCK ABSOLUTE AUTO0.1NOMS HealthcareBasophils/100 WBC (Bld)0.5 %0.2 - 2.0 %NOMS HealthcareEosinophils/100 WBC (Bld)1.9 %0.9 - 7.0 % NOMS HealthcareErythrocyte distribution width (RBC) [Ratio]14.6 %11.0 - 15.0 % NOMS HealthcareHematocrit (Bld) [Volume fraction]50.9 %High36.0 - 48.0 %NOMS HealthcareHemoglobin (Bld) [Mass/Vol]16.1 g/jARifk57.0 - 16.0 g/dLNOTX HealthcareIMMATURE GRANULOCYTES ABS AUTO0.04HighNOTX HealthcareImmature granulocytes/100 WBC (Bld)0.3 %0.0 - 0.5 %NOMS HealthcareInterpretation and review of laboratory resultsAbnormalNOTX HealthcareLYMPHOCYTES ABSOLUTE AUTO3.2 NOMS HealthcareLymphocytes/100 WBC (Bld)25.1 %20.5 - 60.0 %NOMSaint Luke'S HospitalMCH (RBC) [Entitic mass]29.2 pg26.7 - 34.0 pgNOMineral Area Regional Medical CenterMCHC (RBC) [Mass/Vol] 31.6 g/dL29.9 - 35.2 g/dLFreeman Heart InstituteMCV (RBC) [Entitic vol]92.2 fL81.0 - 99.0 fLNOTX HealthcareMONOCYTES ABSOLUTE AUTO0.7NOTX HealthcareMonocytes/100 WBC (Bld)5.2 %1.7 - 12.0 %NOMS HealthcareNEUTROPHILS ABSOLUTE AUTO8.6HighNOTX HealthcareNeutrophils/100 WBC (Bld)67 %43.0 - 75.0 %NOMS HealthcarePlatelet mean volume (Bld) [Entitic vol]12.8 fL9.5 - 13.5 fLNOMineral Area Regional Medical CenterTBH EO #0.2NOMS HealthcareTBH VVK759MerHOQL HealthcareTB RBC5.52HighNOMS HealthcareTBH WBC12.8 HighNOTX HealthcareCLINISYNCNINTEGRIS BAPTIST [facility] HealthcareOffice Visiton 10-00-2433Rqyplh-up [id number] Mitzi Macias 1970 F Date Provider Department Center 08/08/2024 [id number], SAMTROY [facility] Family History Problem Relation Age of Onset Heart attack Paternal Grandmother Family Status - Relation Status Age at Paternal Grandmother Level of Service:76210 ID OFFICE/OUTPATIENT ESTABLISHED MOD MDM 30 MIN Reason for Visit and Comments: Congestive Heart Failure [127] - Denies chest pain, SOB, and palpitations. Hypertension [108391] Hyperlipidemia [182] LVH [Other] Edema [[id number]] - Denies worsening edema. She sees wound care for RLE ulcer. She was seeing the vein specialists here in town but they are moving to [place] in a few weeks.[facility] HospitalProvider Letteron 07-95-5778Zhpmavzz LetterProvider Letter June 11, 2024 MITZI [address]AS [address] [place] [id number] : 1970 To Whom It May Concern, Please excuse above patient from work. Date of Illness: From: 06/11/24 8:30am To: 06/11/24 12:30pm Comments: _Brian Macias was with his for her doctor's appointment. Sincerely, Andra Forrester, Surgical SchedulerNormParkwood HospitalUrology Office/Clinic Noteon 59-12-0114Umslcsi Office/Clinic NoteUrology Office/Clinic Note Chief Complaint 18 mth HPI Staff 53 yo here 18 month f/u CT for adrenal mass. CT SCAN 05/12/24-[facility] Previous DX: adrenal mass, kidney stone, left [...] Urology [address], [place] [address]- Additional Instructions: [address] AP [...] TIDAC potassium chloride 10 (more content not included)...[facility]UMedicine Barnesville HospitalComment on above:Result Comment: Electronically Signed By: Elbert ARAUZ MD\.br\Date and Time Signed: 06/11/24 10:55 EST\.br\Electronically Co- Signed By: Maria Elena Negrete\.br\Date and Time Co-Signed: 06/11/24 10:53 EST Glucose (Bld) [Mass/Vol]Ordered By: Mica Sauceda on 51-69-2005Vtljqhu Blood, OSQ210 mg/dLNOMS HealthcareLaboratory - Hematology and Cell countson 05-27-2024 HbA1c (Bld) [Mass fraction]9.2 %NOMS HealthcareNo Panel InformationOrdered By: Mica Sauceda on 10-65-3861VLQT HealthcareCT ABDOMEN PELVIS W CONon 05-12-2024 [place] [address] CT Scan Report Signed Patient: MITZI MACIAS MR#: [id number] : 1970 Acct:[id number] Age/Sex: 53 / F ADM Date: 05/12/24 Loc: CT Attending Dr: Gaviota MAYERS Ordering Physician: Gaviota Adames Date of Service: 05/12/24 Procedure(s): CT abdomen pelvis w con Accession Number(s): [id number] cc: Mckayla Blas NP [place] [address] Patient Name: MITZI MACIAS MRN: [id number] date: 1970 Sex: F Assigned Patient Location: CT Current Patient Location: Accession/Order Number: [id number] Exam Date: 05/12/2024 11:15 Report Date: 05/12/2024 [...] Signed By: 05/12/24 1419 DD/ 1416 TD/TT: [employer] Advisor:[facility], Radiologist, - 05/12/2024 [place] [address] CT Scan Report Signed Patient: MITZI MACIAS MR#: [id number] : 1970 Acct:[id number] Age/Sex: 53 / F ADM Date: 05/12/24 Loc: CT Attending Dr: Gaviota MAYERS Ordering Physician: Gaviota Adames Date of Service: 05/12/24 Procedure(s): CT abdomen pelvis w con Accession Number(s): [id number] cc: Mckayla Blas NP [facility] [place] [id number] Patient Name: MITZI MACIAS MRN: [id number] date: 1970 Sex: F Assigned Patient Location: CT Current Patient Location: Accession/Order Number: [id number] Exam Date: 05/12/2024 11:15 Report Date: 05/12/2024 [...] Signed By: 05/12/24 1419 DD/ 15 TD/TT: Personal Lines Insurance Advisor: [facility] HOSPITALHenna HealthcareRadiology Study observation (narrative)[facility] InstituteCT ABDOMEN PELVIS W CONOrdered By: Radiologist Radiology on 31-08-9016EYTFFreeman Heart Institute Work Phone: LUMBAR SPINE WO CONon [phone] [phone] Magnetic Resonance Report Signed Patient: MITZI MCAIAS MR#: [id number] : 1970 Acct:[id number] Age/Sex: 53 / F ADM Date: 05/12/24 Loc: MRI Attending Dr: Angela Cochran NP Ordering Physician: Angela Cochran NP Date of Service: 05/12/24 Procedure(s): MR lumbar spine wo con Accession Number(s): [id number] cc: Mckayla Blas GAMEPLAY ENGINEER; Angela Cochran NP [address] [address] Patient Name: MITZI MACIAS MRN: [id number] date: 1970 Sex: F Assigned Patient Location: MRI Current Patient Location: CT Accession/Order Number: [id number] Exam Date: 05/12/2024 09:21 Report Date: 05/12/2024 [...] Signed By: 05/12/24 1443 DD/ 144 TD/TT: Personal Lines Insurance Advisor:TBHRadiology, Radiologist, MD - 05/12/2024 [place] [address] Magnetic Resonance Report Signed Patient: MITZI MACIAS MR#: [id number] : 1970 Acct:[id number] Age/Sex: 53 / F ADM Date: 05/12/24 Loc: MRI Attending Dr: Angela Cochran NP Ordering Physician: Angela Cochran NP Date of Service: 05/12/24 Procedure(s): MR lumbar spine wo con Accession Number(s): [id number] cc: Mckayla Blas NP; Angela Cochran NP [facility] [place] [id number] Patient Name: MITZI MACIAS MRN: [id number] date: 1970 Sex: F Assigned Patient Location: MRI Current Patient Location: CT Accession/Order Number: [id number] Exam Date: 05/12/2024 09:21 Report Date: 05/12/2024 [...] M.D. Signed By: 05/12/241442 DD/ 40 TD/TT: Personal Lines Insurance Advisor: CARLOS HealthcareRadiology Study observation (narrative)[facility] LUMBAR SPINE WO CONOrdered By: Radiologist Radiology on 82-73-2033DDZB [facility] Work Phone: TBH CREATININEon 1233Jlmwgzbsia [Mass/Vol]0.92 mg/dL0.55 - 1.02 mg/dLNOMS HealthcareGFR/1.73 sq M.predicted CKD-EPI (S/P/Bld) [Vol rate/Area]>60>=60 mL/min/1.73m 2NOMS HealthcareTBH EGFR-NON AF CAMEROONIAN>60 >=60 mL/min/1.73m 2NOMS HealthcareCLINISYNCNOMS HealthcareSEGMENTAL BLOOD PRESSUREon 01-20-1947Gto[place] [address] Vein Report Signed Patient: MITZI MACIAS MR#: [id number] : 1970 Acct:[id number] Age/Sex: 53 / F ADM Date: 04/24/24 Loc: Attending Dr: Comfort Pretty Ordering Physician: Comfort Pretty Date of Service: 04/24/24 Procedure(s): SEGMENTAL PRESSURES Accession Number(s): [id number] cc: Mckayla Blas GAMEPLAY ENGINEER; Comfort Pretty [place] [address] Patient Name: MITZI MACIAS MRN: [id number] date: 1970 Sex: F Assigned Patient Location: Current Patient Location: Accession/Order Number: [id number] Exam Date: 04/24/2024 10:25 Report Date: 04/24/2024 11:20 At the request of: COMFORT PRETTY Procedure: SEGMENTAL PRESSURES EXAM: SEGMENTAL PRESSURES HISTORY: R09.89 COMPARISON: None. FINDINGS: Segmental pressures presented as follows (right, left) in mmHg. Brachial: 169, 166 Upper thigh: Not obtained Lower thigh: 129, 119 Calf: 124, 106 DPA: 108, 105 PRODUCTION RECORDER: 100, 91 1st Toe: 124, 142 ISABELLE: [...] Signed By: 04/24/24 1123 DD/ 19 TD/TT: Personal Lines Insurance Advisor:SONNYHRadiology, Radiologist, - 04/24/2024 [place] [address] Vein Report Signed Patient: MITZI MACIAS MR#: [id number] : 1970 Acct:[id number] Age/Sex: 53 / F ADM Date: 04/24/24 Loc: VC Attending Dr: Comfort Pretty Ordering Physician: Comfort Pretty Date of Service: 04/24/24 Procedure(s): VC SEGMENTAL PRESSURES Accession Number(s): [id number] cc: Mckayla Blas GAMEPLAY ENGINEER; Comfort Pretty [facility] [place] [address] Patient Name: MITZI MACIAS MRN: [facility]:[id number] date: 1970 Sex: F Assigned Patient Location: Current Patient Location: Accession/Order Number: [id number] Exam Date: 04/24/2024 10:25 Report Date: 04/24/2024 11:20 At the request of: COMFORT PRETTY Procedure: VC SEGMENTAL PRESSURES EXAM: VC SEGMENTAL PRESSURES HISTORY: R09.89 COMPARISON: None. FINDINGS: Segmental pressures presented as follows (right, left) in mmHg. Brachial: 169, 166 Upper thigh: Not obtained Lower thigh: 129, 119 Calf: 124, 106 DPA: 108, 105 PRODUCTION RECORDER: 100, 91 1st Toe: 124, 142 ISABELLE: [...] Signed By: 04/24/24 1123 DD/ 1120 TD/TT: Personal Lines Insurance Advisor: CARLOS HealthcareRadiology Study observation (narrative)[facility] HealthcareSEGMENTAL BLOOD PRESSUREOrdered By: Radiologist Radiology on 43-24-9875LLPL [facility] Work Phone: mm TOMOSYNTHESIS SCREENING BIon [phone], [place] [address] Mammography Report Signed Patient: MITZI MACIAS MR#: [id number] : 1970 Acct:[id number] Age/Sex: 53 / F ADM Date: 12/13/23 Loc: MAMMO Attending Dr: Mckayla Blas NP Ordering Physician: Mckayla Blas NP Results: Date of Service: 12/13/23 Follow Up: Procedure(s): MM tomosynthesis screening BI Accession Number(s): [id number] cc: Mckayla Blas NP Patient Name: MITZI MACIAS MR#: [id number] : 1970 Exam Date: 12/13/2023 Ordering Doctor: [...] cancer at age 75. LOCATION: The [facility] BREAST COMPOSITION: The breasts are almost [...] Signed By: 12/14/23 1122 DD/ 1121 TD/TT: Personal Lines Insurance Advisor:TBHRadiology, Radiologist, MD - 12/14/2023 [place] [address] Mammography Report Signed Patient: MITZI MACIAS MR#: [id number] : 1970 Acct:[id number] Age/Sex: 53 / F ADM Date: 12/13/23 Loc: MAMMO Attending Dr: Mckayla Blas NP Ordering Physician: Mckayla Blas NP Results: Date of Service: 12/13/23 Follow Up: Procedure(s): MM tomosynthesis screening BI Accession Number(s): [id number] cc: Mckayla Blas NP Patient Name: MITZI MACIAS MR#: [id number] : 1970 Exam Date: 12/13/2023 Ordering Doctor: SYADA Blas CNP RADIOLOGY REPORT PROCEDURE: MM TOMOSYNTHESIS [...] cancer at age 75. LOCATION: The [facility] BREAST COMPOSITION: The breasts are almost [...] Signed By: 12/14/23 1122 DD/ 1121 TD/TT: Personal Lines Insurance Advisor: [facility] InstituteRadiology Study observation (narrative)[facility] TOMOSYNTHESIS SCREENING BIOrdered By: Radiologist Radiology on 70-70-4580CJMRFreeman Heart Institute Work Phone: bLOOD CULTURE 1on 31-68-7241XJCML CULTURE 1 Blood Culture 1 NG5D NO GROWTH AT 5 DAYS.^NO GROWTH AT 5 DAYS. [facility] InstituteBLOOD CULTURE 2on 52-61-9088MMLGU CULTURE 2 Blood Culture 2 NG5D NO GROWTH AT 5 DAYS.^NO GROWTH AT 5 DAYS. [facility] InstituteNo Panel Informationon 19-08-7388AGRQZDPVZSUUL HealthcareECG 12-LEADon 08-19-9259[place] [address] Electrocardiograph Report Signed Patient: MITZI MACIAS MR#: [id number] : 1970 Acct:[id number] Age/Sex: 53 / F ADM Date: 08/31/23 Loc: [place] 214-[address]: Jacqueline Becerra D.O. Ordering Physician: Andra Alcala Date of Service: 08/31/23 Procedure(s): ECG 12 lead Accession Number(s): [id number] cc: [facility] Test Date: 2023-08-31 Pat Name: MITZI MACIAS Department: Room: - Gender: Female Senior Production Planner: : 1970 Requested By: MCKAYLA BLAS Order Number: [id number] Reading MD: LAURI DIOR Measurements Intervals Howard Rate: 102 P: 67 ID: 144 QRS: 52 QRSD: 72 T: 49 QT: 326 QTc: 385 Interpretive Statements 1120 Sinus tachycardia 4068 Nonspecific Twave abnormality 8102 Low QRS voltage in chest leads 9140 abnormal rhythm ECG Compared to ECG 12/04/2022 21:27:48 Electronically Signed On 09-02-2023 7:31:43 EST by LAURI DIOR Dictated By: Lauri Dior D.O. Signed By: 09/02/23 0732 DD/ 180 TD/TT: Personal Lines Insurance Advisor:TBHRadiology, Radiologist, - 09/02/2023 [place] [address] Electrocardiograph Report Signed Patient: MITZI MACIAS MR#: [id number] : 1970 Acct:[id number] Age/Sex: 53 / F ADM Date: 08/31/23 Loc: MS 214-[address]: Jacqueline Becrera D.O. Ordering Physician: Andra Alcala Date of Service: 08/31/23 Procedure(s): ECG 12 lead Accession Number(s): [id number] cc: [facility] Test Date: 2023-08-31 Pat Name: MITZI MACIAS Department: Room: - Gender: Female Senior Production Planner: : 1970 Requested By: MCKAYLA BLAS Order Number: [id number] Reading MD: LAURI DIOR Measurements Intervals Howard Rate: 102 P: 67 ID: 144 QRS: 52 QRSD: 72 T: 49 QT: 326 QTc: 385 Interpretive Statements 1120 Sinus tachycardia 4068 Nonspecific Twave abnormality 8102 Low QRS voltage in chest leads 9140 abnormal rhythm ECG Compared to ECG 12/04/2022 21:27:48 Electronically Signed On 09-02-2023 7:31:43 EST by LAURI DIOR Dictated By: Lauri Dior D.O. Signed By: 09/02/23 0732 DD/ 1808 TD/TT: Personal Lines Insurance Advisor: CARLOS [facility] 12-LEADOrdered By: Radiologist Radiology on 19-56-9545HUTB [facility] Work Phone: EC 12-LEADon 27-59-6601Sschrndpa Study observation (narrative)CARLOS [facility] AUTO DIFFon 91-25-9707CPQZ #0.0 103/ulNormal 0.0-0.1The [facility] HospitalComment on above:Performed By: #### CBC #### [facility] [address] [place] [address] Dr. Ashlie HillsBasophils/100 WBC (Bld)0.1 %Critically low0.2-2.0The [facility] HospitalComment on above:Performed By: #### CBC #### [facility] [address] [place] [address] Dr. Ashlie Mcintosh #0.0 103/ulNormal0.0-0.7The [facility] HospitalComment on above: Performed By: #### CBC #### [facility] [address] [place] [address] Dr. Ashlie Grahamosinophils/100 WBC (Bld)0.0 %Critically low0.9-7.0The [facility] HospitalComment on above:Performed By: #### CBC #### [facility] [address] [place] [address] Dr. Ashlie Grahamrythrocyte distribution width (RBC) [Ratio]14.9 %Dlznim24.0-15.0 The [facility] HospitalComment on above:Performed By: #### CBC #### [facility] [address] [place] [address] Dr. Ashlie HillsHematocrit (Bld) [Volume fraction]46.2 %Sdwwov05.0-48.0[facility] OhioComment on above:Performed By: #### CBC #### [facility] [address] [place] [address] Dr. Ashlie HillsHemoglobin (Bld) [Mass/Vol]14.7 g/hDOkbrnn61.0-16.0The [facility] HospitalComment on above:Performed By: #### CBC #### [facility] [address] [place] [address] Dr. Ashlie Hunter #0.06 10e3/ulCritically high0.00-0.03The [facility] Comment on above:Performed By: #### CBC #### [facility] [address] [place] [address] Dr. Ashlie Hunter %0.4 %Normal0.0-0.5The [facility] HospitalComment on above: Performed By: #### CBC #### [facility] [address] [place] [address] Dr. Ashlie Swenson #1.3 103/ulNormal1.2-3.8The [facility] HospitalComment on above:Performed By: #### CBC #### [facility] [address] [place] [address] Dr. Ashlie Dsouzahocytes/100 WBC (Bld)9.4 %Critically low20.5-60.0The [facility] HospitalComment on above:Performed By: #### CBC #### [facility] [address] [place] [address] Dr. Ashlie GhoshUAL DIFF REQNONormalThe [facility] HospitalComment on above: Performed By: #### CBC #### [facility] [address] [place] [address] Dr. Ashlie Mckeon (RBC) [Entitic mass]28.4 wpIzilil54.7-34.0The [facility] HospitalComment on above:Performed By: #### CBC #### [facility] [address] [place] [address] Dr. Ashlie Mckeon (RBC) [Mass/Vol]31.8 g/jDVggglf73.9-35.2The [facility] HospitalComment on above:Performed By: #### CBC #### [facility] [address] [place] [address] Dr. Ashlie MckeonV (RBC) [Entitic vol]89.4 uWIdlidi82.0-99.0The [facility] HospitalComment on above:Performed By: #### CBC #### [facility] [address] [place] [address] Dr. Ashlie Killian #0.5 103/ulNormal0.3-0.8The [facility] HospitalComment on above:Performed By: #### CBC #### [facility] [address] [place] [address] Dr. Ashlie Palominoocytes/100 WBC (Bld)3.4 %Normal1.7-12.0The [facility] Comment on above:Performed By: #### CBC #### [facility] [address] [place] [address] Dr. Ashlie Olsen #11.8 103/ulCritically high1.4-6.5The [facility] Comment on above:Performed By: #### CBC #### [facility] [address] [place] [address] Dr. Ashlie Quiñonesutrophils/100 WBC (Bld)86.7 %Critically high43.0-75.0The [facility] HospitalComment on above:Performed By: #### CBC #### [facility] [address] [place] [address] Dr. Ashlie Lantigualet mean volume (Bld) [Entitic vol]12.6 fLNormal9.5-13.5The [facility] HospitalComment on above:Performed By: #### CBC #### [facility] [address] [place] [address] Dr. Ashlie HillsPLT133 103/ulCritically rms750-185Tbd [facility] HospitalComment on above:Performed By: #### CBC #### [facility] [address] [place] [address] Dr. Ashlie HillsRBC5.17 106/ulNormal4.20-5.40The [facility] HospitalComment on above:Performed By: #### CBC #### [facility] [address] [place] [address] [address] Ashlie HillsWBC13.6 103/ulCritically high4.0-11.0The [facility] HospitalComment on above:Performed By: #### CBC #### [facility] [address] [place] [address] [address] Ashlie HillsMAGNESIUMon 22-35-6016Pyqtbmcvl [Mass/Vol]2.2 mg/dLNormal1.8-2.4 The [facility] HospitalComment on above:Performed By: #### INFLUAB #### [facility] [address] [place] [address] [address] Ashlie HillsPOINT OF CARE GLUCOSEon 09-54-5837Ajetkrv [Mass/Vol]340 mg/dL Critically zyhw76-488Hhc [facility] HospitalComment on above:Performed By: #### POCGLUC #### [facility] [address] [place] [address] Dr. Ashlie HillsGlucose [Mass/Vol]276 mg/dLCritically djku50-466Qpe [facility] HospitalComment on above:Performed By: #### CBC #### [facility] [address] [place] [address] [address] Ashlie HillsGlucose [Mass/Vol]333 mg/dLCritically cysj10-845Qxq [facility] HospitalComment on above:Performed By: #### CBC #### [facility] [address] [place] [address] Dr. Ashlie HillsPROF CHEM 8 (BAS METB)on 64-31-2746Ckzcr gap [Moles/Vol]10.9 mmol/LNormalThe [facility] HospitalComment on above:Performed By: #### INFLUAB #### [facility] [address] [place] [address] Dr. Ashlie HillsCalcium [Mass/Vol]9.3 mg/dLNormal8.5-10.1The [facility] Comment on above:Performed By: #### INFLUAB #### [facility] [address] [place] [address] [address] Ashlie HillsChloride [Moles/Vol]103 mmol/RWjbhob76-656Iir [facility] Comment on above:Performed By: #### INFLUAB #### [facility] [address] [place] [address] [address] Ashlie HillsCO2 [Moles/Vol]31.2 mmol/ZHpecpz50.0-32.0The [facility] Comment on above:Performed By: #### INFLUAB #### [facility] [address] [place] [address] [address] Ashlie HillsCreatinine [Mass/Vol]0.96 mg/dLNormal0.55-1.02[facility]Comment on above:Performed By: #### INFLUAB #### [facility] [address] [place] [address] [address] Ashlie GrahamGFR-AF CAMEROONIAN>60Normal>=60The [facility] HospitalComment on above:Performed By: #### INFLUAB #### [facility] [address] [place] [address] [address] Ashlie GrahamGFR-NON AF CAMEROONIAN>60Normal>=60The [facility] HospitalComment on above:Performed By: #### INFLUAB #### [facility] [address] [place] [address] [address] Ashlie HillsGlucose [Mass/Vol]288 mg/dLCritically wucx74-684Vat [facility] HospitalComment on above:Performed By: #### INFLUAB #### [facility] [address] [place] [address] [address] Ashlie HillsPotassium [Moles/Vol]5.1 mmol/LNormal3.5-5.1The [facility] Comment on above:Performed By: #### INFLUAB #### [facility] [address] [place] [address] [address] Ashlie HillsSodium [Moles/Vol]140 mmol/CHcofnl006-747Fpu [facility] Comment on above:Performed By: #### INFLUAB #### [facility] [address] [place] [address] [address] Ashlie HillsUrea nitrogen [Mass/Vol]30.0 mg/dLCritically high7.0-18.0The [facility] HospitalComment on above:Performed By: #### INFLUAB #### [facility] [address] [place] [address] Dr. Ashlie HillsUrea nitrogen/Creatinine [Mass ratio]31.2 mg/mgNoalThMercer County Community HospitalComment on above:Performed By: #### INFLUAB #### [facility] [address] [place] [address] Dr. Ashlie VernonC AUTO DIFFon 76-88-0882VPHA #0.0 103/ulNormal0.0-0.1The [facility]ron Generalment on above:Performed By: #### CBC #### [facility] [address] [place] [address] Dr. Ashlie HillsBasophils/100 WBC (Bld)0.4 %Normal0.2-2.0[facility] on above:Performed By: #### CBC #### [facility] [address] [place] [address] Dr. Ashlie Mcintosh #0.0 103/ulNormal0.0-0.7The [facility] HospitalComment on above: Performed By: #### CBC #### [facility] [address] [place] [address] Dr. Ashlie Grahamosinophils/100 WBC (Bld)0.0 %Critically low0.9-7.0[facility] Hospitalment on above:Performed By: #### CBC #### [facility] [address] [place] [address] Dr. Ashlie Grahamrythrocyte distribution width (RBC) [Ratio]14.8 %Fwpjhi86.0-15.0 [facility] Hospitalment on above:Performed By: #### CBC #### [facility] [address] [place] [address] Dr. Ashlie HillsHematocrit (Bld) [Volume fraction]49.9 %Critically high36.0-48.0 [facility] OhioComment on above:Performed By: #### CBC #### [facility] [address] [place] [address] Dr. Ashlie HillsHemoglobin (Bld) [Mass/Vol]15.7 g/nZCzixfk95.0-16.0The [facility] HospitalComment on above:Performed By: #### CBC #### [facility] [address] [place] [address] Dr. Ashlie Hunter #0.04 10e3/ulCritically high0.00-0.03The [facility] Comment on above:Performed By: #### CBC #### [facility] [address] [place] [address] Dr. Ashlie Hunter %0.5 %Normal0.0-0.5The [facility] HospitalComment on above: Performed By: #### CBC #### [facility] [address] [place] [address] Dr. Ashlie Swenson #1.1 103/ulCritically low1.2-3.8The [facility] Comment on above:Performed By: #### CBC #### [facility] [address] [place] [address] Dr. Ashlie Dsouzahocytes/100 WBC (Bld)12.7 %Critically low20.5-60.0The [facility] HospitalComment on above:Performed By: #### CBC #### [facility] [address] [place] [address] Dr. Ashlie GhoshUAL DIFF REQNONormalThe [facility] HospitalComment on above: Performed By: #### CBC #### [facility] [address] [place] [address] Dr. Ashlie Mckeon (RBC) [Entitic mass]28.1 enUjzqwn88.7-34.0The [facility] HospitalComment on above:Performed By: #### CBC #### [facility] [address] [place] [address] Dr. Ashlie Mckeon (RBC) [Mass/Vol]31.5 g/uWKhnith18.9-35.2The [facility] HospitalComment on above:Performed By: #### CBC #### [facility] [address] [place] [address] Dr. Ashlie MckeonV (RBC) [Entitic vol]89.3 nMCqlqfm70.0-99.0The [facility] HospitalComment on above:Performed By: #### CBC #### [facility] [address] [address] [address] Ashlie Killian #0.1 103/ulCritically low0.3-0.8The [facility] HospitalComment on above:Performed By: #### CBC #### [facility] [address] [address] [address] Ashlie Palominoocytes/100 WBC (Bld)1.3 %Critically low1.7-12.0The [facility] HospitalComment on above:Performed By: #### CBC #### [facility] [address] [place] [address] Dr. Ashlie Olsen #7.2 103/ulCritically high1.4-6.5The [facility] Comment on above:Performed By: #### CBC #### [facility] [address] [place] [address] Dr. Ashlie Quiñonesutrophils/100 WBC (Bld)85.1 %Critically high43.0-75.0The [facility] HospitalComment on above:Performed By: #### CBC #### [facility] [address] [place] [address] Dr. Ashlie Lantigualet mean volume (Bld) [Entitic vol]12.2 fLNormal9.5-13.5The [facility] HospitalComment on above:Performed By: #### CBC #### [facility] [address] [place] [address] Dr. Ashlie HillsPLT116 103/ulCritically gsq661-572Agq [facility] HospitalComment on above:Performed By: #### CBC #### [facility] [address] [place] [address] Dr. Ashlie HillsRBC5.59 106/ulCritically high4.20-5.40The [facility] Comment on above:Performed By: #### CBC #### [facility] [address] [place] [address] [address] [address] Ashlie HillsWBC8.5 103/ulNormal4.0-11.0The [facility] HospitalComment on above: Performed By: #### CBC #### [facility] [address] [address] Ashlie Harrison CHEST WO W CONon 19-62-3193DHH CHEST WO W CONEXAMINATION: CTA CHEST WO [...] authenticated by: HATTIE GOFF Date: 2022-12-05 01:52NormalThe [facility] HospitalMAGNESIUMon 33-52-0888Mkhqimgfz [Mass/Vol]2.1 mg/dLNormal 1.8-2.4The [facility] HospitalComment on above:Performed By: #### POCGLUC #### [facility] [address] [address] [address] Ashlie HillsPOINT OF CARE GLUCOSEon 23-07-3494Ysbetos [Mass/Vol]293 mg/dL Critically snmi85-611Kra [facility] HospitalComment on above:Performed By: #### POCGLUC #### [facility] [address] [address] [address] Ashlie HillsGlucose [Mass/Vol]269 mg/dLCritically ifjs36-321Bxz [facility] HospitalComment on above:Performed By: #### POCGLUC #### [facility] [address] [address] [address] Ashlie HillsGlucose [Mass/Vol]223 mg/dLCritically ijse78-601Syl [facility] HospitalComment on above:Performed By: #### CVDAGS #### [facility] [address] [place] [address] Dr. Ashlie HillsPROF CHEM 8 (BAS METB)on 37-44-5865Ywkfh gap [Moles/Vol]11.6 mmol/LNormalThe [facility] HospitalComment on above:Performed By: #### POCGLUC #### [facility] [address] [address] [address] Ashlie HillsCalcium [Mass/Vol]9.2 mg/dLNormal8.5-10.1The [facility] Comment on above:Performed By: #### POCGLUC #### [facility] [address] [address] [address] Ashlie HillsChloride [Moles/Vol]102 mmol/VFgxsdf03-548Fdl [facility] Comment on above:Performed By: #### POCGLUC #### [facility] [address] [address] [address] Ashlie HillsCO2 [Moles/Vol]28.7 mmol/YXfhtri17.0-32.0The [facility] Comment on above:Performed By: #### POCGLUC #### [facility] [address] [place] [address] Dr. Ashlie HillsCreatinine [Mass/Vol]1.04 mg/dLCritically high0.55-1.02The [facility] HospitalComment on above:Performed By: #### POCGLUC #### [facility] [address] [address] [address] Ashlie GrahamGFR-AF CAMEROONIAN>60Normal>=60The [facility] HospitalComment on above:Performed By: #### POCGLUC #### [facility] [facility] [address] [address] [address] Ashlie GrahamGFR-NON AF GKAGHXRO33 mL/min/1.22a7Yebsbwzifr low>=60The [facility] HospitalComment on above:Performed By: #### POCGLUC #### [facility] [address] [address] [address] Ashlie HillsGlucose [Mass/Vol]231 mg/dLCritically drlc15-451Tkc [facility] on above:Performed By: #### POCGLUC #### [facility] [address] [address] [address] Ashlie HillsPotassium [Moles/Vol]4.3 mmol/LNormal3.5-5.1The [facility] Comment on above:Performed By: #### POCGLUC #### [facility] [address] [address] [address] Ashlie HillsSodium [Moles/Vol]138 mmol/KUheqms752-491Nsu [facility] Comment on above:Performed By: #### POCGLUC #### [facility] [address] [address] [address] Ashlie HillsUrea nitrogen [Mass/Vol]17.0 mg/dLNormal7.0-18.0The [facility] on above:Performed By: #### POCGLUC #### [facility] [address] [address] [address] Ashlie HillsUrea nitrogen/Creatinine [Mass ratio]16.3 mg/mgNormalThe [facility] HospitalComment on above:Performed By: #### POCGLUC #### [facility] [address] [address] [address] Ashlie HillsRESPIRATORY PANEL PLUSon 27-88-4620XyatgavgfvCmt detectedNormal NOT DETECTEDThe [facility] HospitalComment on above:Performed By: #### CVDAGS #### [facility] [address] [address] [address] Ashlie Gandhi ParapertusisNot detectedNormalNOT DETECTEDThe [facility] HospitalComment on above:Performed By: #### CVDAGS #### [facility] [address] [address] [address] Ashlie Gandhi PertussisNot detectedNormalNOT DETECTEDThe [facility] Comment on above:Performed By: #### CVDAGS #### [facility] [address] [address] [address] Ashlie HillsChlamydia PneumoniaeNot detectedNormalNOT DETECTEDThe [facility] HospitalComment on above:Performed By: #### CVDAGS #### [facility] [address] [address] [address] Ashlie HillsCoronavirus 229ENot detectedNormalNOT DETECTEDThe [facility] HospitalComment on above:Performed By: #### CVDAGS #### [facility] [address] [address] [address] Ashlie HillsCoronavirus UYE1Sbh detectedNormalNOT DETECTEDThe [facility] HospitalComment on above:Performed By: #### CVDAGS #### [facility] [address] [address] [address] Dailey ChangCoronavirus NN17Lmd detectedNormalNOT DETECTEDThe [facility] HospitalCommymichigan [facility] al[facility] on above:Performed By: #### CVDAGS #### [facility] [address] [address] [address] Ashlie HillsCoronavirus EV44Hhp detectedNormalNOT DETECTEDThe [facility] HospitalCommymichigan [facility] on above:Performed By: #### CVDAGS #### [facility] [address] [address] [address] Ashlie Lockhart A H1Not detectedNormalNOT DETECTEDThe [facility] Comment on above:Performed By: #### CVDAGS #### [facility] [address] [address] [address] Ashlie Centeno H1 2009Not detectedNormalNOT DETECTEDThe [facility] HospitalComment on above:Performed By: #### CVDAGS #### [facility] [address] [address] [address] Ashlie Centeno H3Not detectedNormalNOT DETECTEDThe [facility] Comment on above:Performed By: #### CVDAGS #### [facility] [address] [address] [address] Ashlie Lockhart BNot detectedNormalNOT DETECTEDThe [facility] Comment on above:Performed By: #### CVDAGS #### [facility] [address] [address] [address] Ashlie ChávezapneumovirusNot detectedNormalNOT DETECTEDThe [facility] HospitalCommymichigan [facility] on above:Performed By: #### CVDAGS #### [facility] [address] [address] [address] Ashlie Jimenez. PneumoniaeNot detectedNormalNOT DETECTEDThe [facility] HospitalComment on above:Performed By: #### CVDAGS #### [facility] [address] [address] [address] Ashlie Mendieta 1Not detectedNormalNOT DETECTEDThe [facility] HospitalCommymichigan [facility] on above:Performed By: #### CVDAGS #### [facility] [address] [address] [address] Ashlie Mendieta 2Not detectedNormalNOT DETECTEDThe [facility] HospitalComment on above:Performed By: #### CVDAGS #### [facility] [address] [address] [address] Ashlie Mendieta 3DetectedAbnormalNOT DETECTEDThe [facility] Comment on above:Performed By: #### CVDAGS #### [facility] [address] [address] [address] Ashlie Mendieta 4Not detectedNormalNOT DETECTEDThe [facility] HospitalCommymichigan [facility] on above:Performed By: #### CVDAGS #### [facility] [address] [place] [address] Dr. Ashlie HillsRhino/EnterovirusNot detectedNormalNOT DETECTEDThe [facility] HospitalComment on above:Performed By: #### CVDAGS #### [facility] [address] [place] [address] Dr. Ashlie Gallagher Header 1RESPIRATORY PANEL: [facility]ESMartin [facility] Comment on above:Performed By: #### CVDAGS #### [facility] [address] [address] [address] Ashlie Gallagher Header 2RESPIRATORY PANEL: BACTERIAMartin Memorial HospitalComment on above:Performed By: #### CVDAGS #### [facility] [address] [place] [address] Dr. Ashlie GivensNot detectedNormalNOT DETECTEDThe [facility] HospitalComment on above:Performed By: #### CVDAGS #### [facility] [address] [place] [address] Dr. Ashlie Finney-CoV-2 (COVID-19) RNA MADDY+probe Ql (Unsp spec)Not detected NormalNOT DETECTEDThe [facility] HospitalComment on above:Performed By: #### CVDAGS #### [facility] [address] [place] [address] Dr. Ashlie HillsXR CHEST 1 Von [id number] CHEST 1 VEXAMINATION: XR CHEST 1 V HISTORY: Shortness of breath COMPARISON: Chest x-ray 08/09/2021 TECHNIQUE: Portable chest FINDINGS: The lung parenchyma is free of consolidation or infiltrate. No pneumothorax or pleural effusion. The cardiac, mediastinal and hilar contours are normal. The visualized osseous structures exhibit no gross abnormality. IMPRESSION: No acute cardiopulmonary abnormality. Electronically authenticated by: MARYANNE POWER Date: 2022-12-04 22:23Martin [facility] HospitalBLOOD GASES BTYon MODEROOAdams County Regional Medical CenterComment on above:Performed By: #### CBC #### [facility] [address] [place] [address] Dr. Ashlie Duran TESTPositiveVan Wert County Hospitalment on above: Performed By: #### CBC #### [facility] [address] [address] [address] Ashlie Crenshaw excess Calc (Bld) [Moles/Vol]5.4 mmol/LCritically high -2.0-2.0The [facility] on above:Performed By: #### CBC #### [facility] [address] [address] [address] Ashlie SkyP [facility] CenterCommymichigan medical center al[facility] on above: Performed By: #### CBC #### [facility] [address] [address] [address] Ashlie HillsCPAccess Hospital [place] on above:Performed By: #### CBC #### [facility] [address] [address] [address] Ashlie HillsOybljAFS7SliyjcFry98 Anderson StreetCommymichigan medical center alma on above:Performed By: #### CBC #### [facility] [address] [address] [address] Ashlie HillsHCO3 (Bld) [Moles/Vol]30.8 mmol/LCritically high22.0-26.0The [facility] on above:Performed By: #### CBC #### [facility] [address] [address] [address] Ashlie HillsLPMNormalThe [facility] HospitalCommymichigan medical center al[facility] on above:Performed By: #### CBC #### [facility] [address] [address] [address] Ashlie HackettUTE VOLUMEMartin Memorial HospitalCommymichigan medical center alma on above: Performed By: #### CBC #### [facility] [address] [address] [address] Ashlie HillsOxygen (Bld) [Partial pressure]46.3 mm[Hg]Critically low 80.0-100.0[facility] on above:Performed By: #### CBC #### [facility] [address] [place] [address] Dr. Yilan ChangOxygen saturation in Blood83.9 %Critically low95.0-100.0The [facility] HospitalComment on above:Performed By: #### CBC #### [facility] [address] [address] [address] Ashlie HillsPCO254.2 mmHgCritically high35.0-45.0The [facility] on above:Performed By: #### CBC #### [facility] [address] [address] [address] Ashlie HillsWayne HealthCare Main CampusCommymichigan medical center alma on above:Performed By: #### CBC #### [facility] [address] [address] [address] Ashlie Knapp (Bld)7.363 [pH]Normal7.350-7.450The [facility] on above:Performed By: #### CBC #### [facility] [address] [address] [address] Ashlie VerasSt. Francis HospitalCommymichigan medical center alma on above:Performed By: #### CBC #### [facility] [address] [address] [address] Ahslie HillsDoctors Hospital on above:Performed By: #### CBC #### [facility] [address] [place] [address] Dr. Ashlie Avendano [facility] CampusCommymichigan medical center al[facility] on above: Performed By: #### CBC #### [facility] [address] [place] [address] Dr. Ashlie GoldSt. Francis HospitalCommymichigan medical center alma on above:Performed By: #### CBC #### [facility] [address] [address] [address] Ashlie HillsOhioHealth Grove City Methodist HospitalCommymichigan medical center al[facility] on above:Performed By: #### CBC #### [facility] [address] [place] [address] Dr. Ashlie HillsHolmes County Joel Pomerene Memorial HospitalCommymichigan medical center alma on above:Performed By: #### CBC #### [facility] [address] [address] [address] Ashlie Perry 10-89-0501Gryojnalssd peptide B (Bld) [Mass/Vol]76.0 pg/mL Normal<=900.0The [facility] HospitalComment on above:Performed By: #### POCGLUC #### [facility] [address] [address] [address] Ashlie Chinchilla AUTO DIFFon [id number] #0.1 103/ulNormal0.0-0.1The [facility] HospitalComment on above:Performed By: #### CBC #### [facility] [address] [address] [address] Ashlie HillsBasophils/100 WBC (Bld)0.6 %Normal0.2-2.0[facility] [place] Comment on above:Performed By: #### CBC #### [facility] [address] [address] [address] Ashlie Mcintosh #0.2 103/ulNormal0.0-0.7The [facility] HospitalComment on above: Performed By: #### CBC #### [facility] [address] [address] [address] Ashlie Grahamosinophils/100 WBC (Bld)1.9 %Normal0.9-7.0[facility] Comment on above:Performed By: #### CBC #### [facility] [address] [place] [address] Dr. Ashlie Grahamrythrocyte distribution width (RBC) [Ratio]15.0 %Tmlzrh96.0-15.0 [facility] OhioComment on above:Performed By: #### CBC #### [facility] [address] [address] [address] Ashlie HillsHematocrit (Bld) [Volume fraction]49.1 %Critically high36.0-48.0 [facility] OhioComment on above:Performed By: #### CBC #### [facility] [address] [address] [address] Ashlie HillsHemoglobin (Bld) [Mass/Vol]15.6 g/vJFwnnyo42.0-16.0The [facility] HospitalComment on above:Performed By: #### CBC #### [facility] [address] [place] [address] Dr. Ashlie Hunter #0.02 10e3/ulNormal0.00-0.03The [facility] HospitalComment on above:Performed By: #### CBC #### [facility] [address] [place] [address] Dr. Ashlie Hunter %0.2 %Normal0.0-0.5The [facility] HospitalComment on above: Performed By: #### CBC #### [facility] [address] [place] [address] Dr. Ashlie Swenson #2.8 103/ulNormal1.2-3.8The [facility] HospitalComment on above:Performed By: #### CBC #### [facility] [address] [place] [address] Dr. Ashlie Dsouzahocytes/100 WBC (Bld)29.9 %Rncpmj43.5-60.0The [facility] HospitalComment on above:Performed By: #### CBC #### [facility] [address] [place] [address] Dr. Ashlie Marie DIFF REQNONormalThe [facility] HospitalComment on above: Performed By: #### CBC #### [facility] [address] [place] [address] Dr. Ashlie Mckeon (RBC) [Entitic mass]28.5 vgLastwv03.7-34.0The [facility] HospitalComment on above:Performed By: #### CBC #### [facility] [address] [place] [address] Dr. Ashlie Mckeon (RBC) [Mass/Vol]31.8 g/mVFuekrt09.9-35.2The [facility] HospitalComment on above:Performed By: #### CBC #### [facility] [address] [place] [address] Dr. Ashlie Mckeon (RBC) [Entitic vol]89.8 wDQofcqz86.0-99.0The [facility] HospitalComment on above:Performed By: #### CBC #### [facility] [address] [place] [address] Dr. Ashlie Killian #1.0 103/ulCritically high0.3-0.8The [facility] Comment on above:Performed By: #### CBC #### [facility] [address] [place] [address] Dr. Ashlie Palominoocytes/100 WBC (Bld)10.6 %Normal1.7-12.0[facility] Comment on above:Performed By: #### CBC #### [facility] [address] [place] [address] Dr. Ashlie Olsen #5.3 103/ulNormal1.4-6.5The [facility] HospitalComment on above:Performed By: #### CBC #### [facility] [address] [place] [address] Dr. Ashlie Quiñonesutrophils/100 WBC (Bld)56.8 %Ekqdgj23.0-75.0The [facility] HospitalComment on above:Performed By: #### CBC #### [facility] [address] [place] [address] Dr. Ashlie Crump mean volume (Bld) [Entitic vol]12.5 fLNormal9.5-13.5The [facility] HospitalComment on above:Performed By: #### CBC #### [facility] [address] [place] [address] Dr. Ashlie WhiteT109 103/ulCritically vrt135-220Pic [facility] HospitalComment on above:Performed By: #### CBC #### [facility] [address] [place] [address] Dr. Ashlie PruettC5.47 106/ulCritically high4.20-5.40The [facility] Comment on above:Performed By: #### CBC #### [facility] [address] [place] [address] Dr. Ashlie BhaktaBC9.4 103/ulNormal4.0-11.0The [facility] HospitalComment on above: Performed By: #### CBC #### [facility] [address] [place] [address] Dr. Ashlie Jones 14(COMP METB)on [id number] [Mass/Vol]2.9 g/dL Critically low3.4-5.0The [facility] HospitalComment on above:Performed By: #### CBC #### [facility] [address] [place] [address] Dr. Ashlie HillsAlbumin/Globulin [Mass ratio]0.6 {ratio}NormalThe [facility] HospitalComment on above:Performed By: #### CBC #### [facility] [address] [place] [address] Dr. Ashlie Gonzalez [Catalytic activity/Vol]64 U/LUoeoud55-163Gbl [facility] HospitalComment on above:Performed By: #### CBC #### [facility] [address] [place] [address] Dr. Ashlie Chambers [Catalytic activity/Vol]16 U/CAjqenf66-49Omb [facility] HospitalComment on above:Performed By: #### CBC #### [facility] [address] [place] [address] Dr. Ashlie Arce gap [Moles/Vol]9.6 mmol/LNormalThe [facility] HospitalComment on above:Performed By: #### CBC #### [facility] [address] [place] [address] Dr. Ashlie Tiwari [Catalytic activity/Vol]16 U/EXfypep81-37Ocl [facility] HospitalComment on above:Performed By: #### CBC #### [facility] [address] [place] [address] Dr. Ashlie HillsBilirubin [Mass/Vol]0.5 mg/dLNormal0.2-1.0The [facility] Comment on above:Performed By: #### CBC #### [facility] [address] [place] [address] Dr. Ashlie HillsCalcium [Mass/Vol]8.7 mg/dLNormal8.5-10.1The [facility] Comment on above:Performed By: #### CBC #### [facility] [address] [address] [address] Ashlie HillsChloride [Moles/Vol]103 mmol/BKpjutb03-902Ses [facility] Comment on above:Performed By: #### CBC #### [facility] [address] [address] [address] Ashlie HillsCO2 [Moles/Vol]30.7 mmol/FQaovjq46.0-32.0The [facility] Comment on above:Performed By: #### CBC #### [facility] [address] [address] [address] Ashlie HillsCreatinine [Mass/Vol]0.96 mg/dLNormal0.55-1.02The [facility] HospitalComment on above:Performed By: #### CBC #### [facility] [address] [place] [address] Dr. Ashlie GrahamGFR-AF CAMEROONIAN>60Normal>=60The [facility] HospitalComment on above:Performed By: #### CBC #### [facility] [address] [address] [address] Ashlie Delaney-NON AF CAMEROONIAN>60Normal>=60The [facility] HospitalComment on above:Performed By: #### CBC #### [facility] [address] [address] [address] Ashlie HillsGlobulin (S) [Mass/Vol]4.7 g/dLNormalThe [facility] HospitalComment on above:Performed By: #### CBC #### [facility] [address] [address] [address] Ashlie HillsGlucose [Mass/Vol]170 mg/dLCritically bdwn79-566Aqq [facility] HospitalComment on above:Performed By: #### CBC #### [facility] [address] [address] [address] Ashlie HillsPotassium [Moles/Vol]4.3 mmol/LNormal3.5-5.1The [facility] Comment on above:Performed By: #### CBC #### [facility] [address] [address] [address] Ashlie HillsProtein [Mass/Vol]7.6 g/dLNormal6.4-8.2The [facility] Comment on above:Performed By: #### CBC #### [facility] [address] [address] [address] Ashlie HillsSodium [Moles/Vol]139 mmol/GYscwtm273-348Rak [facility] Comment on above:Performed By: #### CBC #### [facility] [address] [place] [address] Dr. Ashlie HillsUrea nitrogen [Mass/Vol]16.0 mg/dLNormal7.0-18.0The [facility] HospitalComment on above:Performed By: #### CBC #### [facility] [address] [place] [address] Dr. Ashlie HillsUrea nitrogen/Creatinine [Mass ratio]16.7 mg/mgNormalThe [facility] HospitalComment on above:Performed By: #### CBC #### [facility] [address] [place] [address] Dr. Ashlie HillsSYMPTOMATIC COVID-19 ANTIGENon [id number] StatementSEE BELOW NormalThe [facility] HospitalComment on above:Result Comment: This test has [...] is revoked sooner.Performed By: #### CVDAGS #### [facility] [address] [place] [address] Dr. Ashlie Finney-CoV-2 (COVID-19) RNA MADDY+probe Ql (Unsp spec)NegativeNormal NEGATIVESelect [facility] [place]Comment on above:Performed By: #### CVDAGS #### [facility] [address] [place] [address] Dr. Ashlie Alvarado, [employer] SENSITIVITYon 90-07-7461OGUPPF8.9 pg/mLNormal 4.0-51.3The [facility] HospitalComment on above:Result Comment: CUT-OFF POINTS HAVE BEEN ESTABLISHED BASED ON THE FOURTH UNIVERSAL DEFINITIONS OF MYOCARDIAL INFARCTION. THE UPPER REFERENCE LIMIT (URL) OF TROPONIN, DEFINED THE 99TH PERCENTILE OF cTnI DISTRIBUTION IN A REFERENCE POPULATION, HAS BEEN CONFIRMED THE DECISION THRESHOLD FOR NE DIAGNOSIS.Performed By: #### POCGLUC #### [facility] [address] [place] [address] Dr. Ashlie MarshallALBUMIN, RAND URon 25-75-1065hOAQ93.8 mg/dLCritically high <=30.0The [facility] HospitalComment on above:Performed By: #### CVDAGS #### [facility] [address] [place] [address] Dr. Ashlie Vaughn RANDOM W/MICROSCOPICon [id number] SEENNormalNONE SEENSelect [facility] OhioComment on above:Performed By: #### CVDAGS #### [facility] [address] [place] [address] Dr. Ashlie Galarzairubin Ql (U)NegativeNormalNEGATIVEThe [facility] Comment on above:Performed By: #### CVDAGS #### [facility] [address] [place] [address] Dr. Ashlie HillsCASTSEENAbnormalNONE SEENSelect Medical Special[facility] OhioComment on above: Performed By: #### CVDAGS #### [facility] [address] [place] [address] Dr. Ashlie HillsClarity (U)CLEARNormalCLEARThe [facility] HospitalComment on above: Performed By: #### CVDAGS #### [facility] [address] [address] [address] Ashlie Prescottlor (U)YELLOWNormalYELLOWSelect Medical Specialty Hospital - Southeast OhioComment on above: Performed By: #### CVDAGS #### [facility] [address] [address] [address] Ashlie HillsCrystals LM Nom (Urine sed)NONE SEENNormalNONE SEENSelect Medical Specialty Hospital [facility] OhioCommymichigan medical center alma on above:Performed By: #### CVDAGS #### [facility] [address] [address] [address] Dailey ChangEpithelial cells LM Ql (Urine sed)MODERATEAbnormalNONE SEEN /RARE The [facility] HospitalCommymichigan medical center alma on above:Performed By: #### CVDAGS #### [facility] [address] [place] [address] Dr. Ashlie iHllsGlucose Ql (U)NegativeNormalNEGATIVESelect Medical [facility] OhioCommymichigan medical center [facility] on above:Performed By: #### CVDAGS #### [facility] [address] [address] [address] Ashlie HillsHemoglobin Ql (U)TRACE-INTACTAbnormalNEGATIVESelect Medical [facility] OhioCommymichigan medical center [facility] on above:Performed By: #### CVDAGS #### [facility] [address] [place] [address] Dr. Ashlie HillsKetones Ql (U)NegativeNormalNEGATIVESelect Medical [facility] OhioCommymichigan medical center [facility] on above:Performed By: #### CVDAGS #### [facility] [address] [address] [address] Ashlie HillsLEUKOCYTESNegativeNormalNEGATIVESelect Medical [facility] OhioCommymich[facility] center [facility] on above:Performed By: #### CVDAGS #### [facility] [address] [address] [address] Ashlie HillsMUCOUSNONE SEENNormalNONE SEENSelect Medical Special[facility] OhioCommymichigan medical center [facility] on above:Performed By: #### CVDAGS #### [facility] [address] [address] [address] Ashlie HillsNitrite Ql (U)NegativeNormalNEGATIVEThe [facility] HospitalComment on above:Performed By: #### CVDAGS #### [facility] [address] [place] [address] Dr. Ashlie HillspH (U)5.0 [pH]Normal5-9The [facility] HospitalComment on above: Performed By: #### CVDAGS #### [facility] [address] [place] [address] Dr. Ashlie WilderJxqkcYLP3-5Mzxtti6-1Vqz [facility] HospitalComment on above:Performed By: #### CVDAGS #### [facility] [address] [place] [address] Dr. Ashlie HillsSPEC GRAVITY1.510Bivuinyy3.005-<=1.025The [facility] Comment on above:Performed By: #### CVDAGS #### [facility] [address] [place] [address] Dr. Ashlie Vaughn STAQIRA910 mg/dlAbnormalNEGATIVE/ TRACEThe [facility] Comment on above:Performed By: #### CVDAGS #### [facility] [address] [place] [address] Dr. Ashlie Metzbilinogen Qn (U)0.2 {Little'U}/dLNormal0.2 - 1.0The [facility] HospitalComment on above:Performed By: #### CVDAGS #### [facility] [address] [place] [address] Dr. Ashlie HillsWBCNONE SEENNormalNONE SEENThe [facility] HospitalComment on above: Performed By: #### CVDAGS #### [facility] [address] [place] [address] Dr. Ashlie Chinchilla AUTO DIFFon [id number] #0.0 103/ulNormal0.0-0.1The [facility] HospitalComment on above:Performed By: #### CBC #### [facility] [address] [place] [address] Dr. Ashlie HillsBasophils/100 WBC (Bld)0.3 %Normal0.2-2.0The [facility] Comment on above:Performed By: #### CBC #### [facility] [address] [place] [address] Dr. Ashlie Mcintosh #0.4 103/ulNormal0.0-0.7The [facility] HospitalComment on above: Performed By: #### CBC #### [facility] [address] [place] [address] Dr. Ashlie Grahamosinophils/100 WBC (Bld)3.0 %Normal0.9-7.0The [facility] Comment on above:Performed By: #### CBC #### [facility] [address] [place] [address] Dr. Ashlie Grahamrythrocyte distribution width (RBC) [Ratio]15.3 %Critically high 11.0-15.0[facility] OhioComment on above:Performed By: #### CBC #### [facility] [address] [place] [address] Dr. Ashlie HillsHematocrit (Bld) [Volume fraction]52.4 %Critically high36.0-48.0 The [facility] HospitalComment on above:Performed By: #### CBC #### [facility] [address] [place] [address] Dr. Ashlie HillsHemoglobin (Bld) [Mass/Vol]16.8 g/dLCritically high12.0-16.0[facility] OhioComment on above:Performed By: #### CBC #### [facility] [address] [place] [address] Dr. Ashlie Hunter #0.04 10e3/ulCritically high0.00-0.03The [facility] Comment on above:Performed By: #### CBC #### [facility] [address] [place] [address] Dr. Ashlie Hunter %0.3 %Normal0.0-0.5The [facility] HospitalComment on above: Performed By: #### CBC #### [facility] [address] [place] [address] Dr. Ashlie Swenson #4.5 103/ulCritically high1.2-3.8The [facility] Comment on above:Performed By: #### CBC #### [facility] [address] [place] [address] Dr. Ashlie Dsouzahocytes/100 WBC (Bld)33.2 %Bhigtm96.5-60.0The [facility] HospitalComment on above:Performed By: #### CBC #### [facility] [address] [place] [address] Dr. Ashlie Marie DIFF REQNONormalThe [facility] HospitalComment on above: Performed By: #### CBC #### [facility] [address] [place] [address] Dr. Ashlie Granger (RBC) [Entitic mass]28.0 unJddxho53.7-34.0The [facility] HospitalComment on above:Performed By: #### CBC #### [facility] [address] [place] [address] Dr. Ashlie Mckeon (RBC) [Mass/Vol]32.1 g/cRDrnpiv22.9-35.2The [facility] HospitalComment on above:Performed By: #### CBC #### [facility] [address] [place] [address] Dr. Ashlie Mckeon (RBC) [Entitic vol]87.3 cPKyyjyw59.0-99.0The [facility] HospitalComment on above:Performed By: #### CBC #### [facility] [address] [place] [address] Dr. Ashlie Killian #0.8 103/ulNormal0.3-0.8The [facility] HospitalComment on above:Performed By: #### CBC #### [facility] [address] [place] [address] Dr. Ashlie Palominoocytes/100 WBC (Bld)5.7 %Normal1.7-12.0[facility] Comment on above:Performed By: #### CBC #### [facility] [address] [place] [address] Dr. Ashlie Olsen #7.8 103/ulCritically high1.4-6.5The [facility] Comment on above:Performed By: #### CBC #### [facility] [address] [address] [address] Ashlie Quiñonesutrophils/100 WBC (Bld)57.5 %Qbhqps48.0-75.0[facility] OhioComment on above:Performed By: #### CBC #### [facility] [address] [address] [address] Ashlie HillsPlatelet mean volume (Bld) [Entitic vol]12.0 fLNormal9.5-13.5The [facility] HospitalComment on above:Performed By: #### CBC #### [facility] [address] [place] [address] Dr. Ashlie HillsPLT152 103/feVltfaz133-547MloSelect Medical Specialty Hospital - Southeast OhioComment on above: Performed By: #### CBC #### [facility] [address] [place] [address] Dr. Ashlie HillsRBC6.00 106/ulCritically high4.20-5.40[facility] [place] Comment on above:Performed By: #### CBC #### [facility] [address] [place] [address] Dr. Ashlie HillsWBC13.6 103/ulCritically high4.0-11.0[facility] OhioComment on above:Performed By: #### CBC #### [facility] [address] [place] [address] Dr. Ashlie HillsLIPID PROFILEon [id number]-HDL RATIO NORMSEE [facility] HospitalComment on above:Result Comment: 3.3 - 4.4 LOW RISK 4.4 - 7.1 AVERAGE RISK 7.1 - 11.0 MODERATE RISK >11.0 HIGH RISKPerformed By: #### CBC #### [facility] [address] [place] [address] Dr. Ashlie HillsCholesterol [Mass/Vol]139 mg/dLNormal<=200The [facility] Comment on above:Performed By: #### CBC #### [facility] [address] [address] [address] Ashlie HillsCholesterol in HDL [Mass/Vol]35 mg/dLCritically lsz34-15UdjSelect Medical Specialty Hospital - Southeast OhioComment on above:Performed By: #### CBC #### [facility] [address] [address] [address] Ashlie HillsCholesterol in LDL [Mass/Vol]67.4 mg/dLNoRiverside Methodist HospitalComment on above:Performed By: #### CBC #### [facility] [address] [address] [address] Ashlie Lopezesteroralia.total/Cholesterol in HDL [Mass ratio]4.0 {ratio} NormalSelect Medical Specialty Hospital - Southeast OhioComment on above:Performed By: #### CBC #### [facility] [address] [address] [address] Ashlie Potts NORMAL> or = 60 mg/dl - LOW CARDIOVASCULAR RISK <40 mg/dl - HIGH CARDIOVASCULAR RISKNoRiverside Methodist HospitalComment on above:Performed By: #### CBC #### [facility] [address] [address] [address] Ashlie Desai CALC NORMALSEE BELOWMartin Memorial HospitalComment on above:Result Comment: <100 mg/dl OPTIMAL 100 - 129 mg/dl NEAR OR ABOVE OPTIMAL 130 - 159 mg/dl BORDERLINE HIGH 160 - 189 mg/dl HIGH >190 mg/dl VERY HIGH Performed By: #### CBC #### [facility] [address] [address] [address] Ashlie HillsTriglyceride [Mass/Vol]183 mg/dLCritically high<=150[facility] OhioComment on above:Performed By: #### CBC #### [facility] [address] [address] [address] Ashlie UnderwoodLDL CALC36.6 mg/dLNoRiverside Methodist HospitalComment on above: Performed By: #### CBC #### [facility] [address] [address] [address] 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 LOCATION: [facility] BREAST COMPOSITION: Almost entirely fatty. FINDINGS: [...] by: Patricia Veloz M.D. on 11/22/2022 at 12:09[facility] HospitalPROF 14(COMP METB)on [id number] [Mass/Vol]3.0 g/dLCritically low 3.4-5.0The [facility] Generalment on above:Performed By: #### CBC #### [facility] [address] [address] [address] Ashlie HillsAlbumin/Globulin [Mass ratio]0.6 {ratio}NormalThe [facility] HospitalComment on above:Performed By: #### CBC #### [facility] [address] [address] [address] Ashlie Gonzalez [Catalytic activity/Vol]68 U/UQorqwq79-108Tsl [facility] HospitalComment on above:Performed By: #### CBC #### [facility] [address] [address] [address] Ashlie MoralesT [Catalytic activity/Vol]14 U/MCigqpc09-10Bld [facility] HospitalComment on above:Performed By: #### CBC #### [facility] [address] [address] [address] Ashlie Hassanon gap [Moles/Vol]12.1 mmol/LNormalThe [facility] Comment on above:Performed By: #### CBC #### [facility] [address] [address] [address] Ashlie HillsAST [Catalytic activity/Vol]9 U/LCritically xzw13-41Pgf [facility] HospitalComment on above:Performed By: #### CBC #### [facility] [address] [address] [address] Ashlie HillsBilirubin [Mass/Vol]0.4 mg/dLNormal0.2-1.0[facility] Comment on above:Performed By: #### CBC #### [facility] [address] [address] [address] Ashlie HillsCalcium [Mass/Vol]9.0 mg/dLNormal8.5-10.1[facility] Comment on above:Performed By: #### CBC #### [facility] [address] [place] [address] Dr. Ashlie HillsChloride [Moles/Vol]105 mmol/AFxjdjz66-098Ifo [facility] Comment on above:Performed By: #### CBC #### [facility] [address] [address] [address] Ashlie HillsCO2 [Moles/Vol]30.7 mmol/EScuyyz65.0-32.0[facility] Comment on above:Performed By: #### CBC #### [facility] [address] [address] [address] Ashlie Lopezatinine [Mass/Vol]0.77 mg/dLNormal0.55-1.02The [facility] HospitalComment on above:Performed By: #### CBC #### [facility] [address] [place] [address] Dr. Ashlie GrahamGFR-AF CAMEROONIAN>60Normal>=60The [facility] HospitalComment on above:Performed By: #### CBC #### [facility] [address] [place] [address] Dr. Ashlie GrahamGFR-NON AF CAMEROONIAN>60Normal>=60The [facility] HospitalComment on above:Performed By: #### CBC #### [facility] [address] [place] [address] Dr. Ashlie HillsGlobulin (S) [Mass/Vol]4.8 g/dLNormalThe [facility] HospitalComment on above:Performed By: #### CBC #### [facility] [address] [place] [address] Dr. Ashlie HillsGlucose [Mass/Vol]162 mg/dLCritically ditt90-441ZbaGeorgetown Behavioral Hospitalment on above:Performed By: #### CBC #### [facility] [address] [place] [address] Dr. Ashlie HillsPotassium [Moles/Vol]3.8 mmol/LNormal3.5-5.1[facility] Comment on above:Performed By: #### CBC #### [facility] [address] [place] [address] Dr. Ashlie HillsProtein [Mass/Vol]7.8 g/dLNormal6.4-8.2[facility] Comment on above:Performed By: #### CBC #### [facility] [address] [place] [address] Dr. Ashlie HillsSodium [Moles/Vol]144 mmol/UGjjeco106-371Aij [facility] Comment on above:Performed By: #### CBC #### [facility] [address] [place] [address] Dr. Ashlie HillsUrea nitrogen [Mass/Vol]24.0 mg/dLCritically high7.0-18.0The [facility] HospitalComment on above:Performed By: #### CBC #### [facility] [address] [place] [address] Dr. Ashlie Jones nitrogen/Creatinine [Mass ratio]31.2 mg/mgNormalThe [facility] HospitalComment on above:Performed By: #### CBC #### [facility] [address] [place] [address] Dr. Ashlie Chinchilla AUTO DIFFon [id number] #0.1 103/ulNormal0.0-0.1The [facility] HospitalComment on above:Performed By: #### CBC #### [facility] [address] [place] [address] Dr. Ashlie HillsBasophils/100 WBC (Bld)0.6 %Normal0.2-2.0The [facility] Comment on above:Performed By: #### CBC #### [facility] [address] [place] [address] Dr. Ashlie Mcintosh #0.3 103/ulNormal0.0-0.7The [facility] HospitalComment on above: Performed By: #### CBC #### [facility] [address] [place] [address] Dr. Ashlie Grahamosinophils/100 WBC (Bld)2.1 %Normal0.9-7.0The [facility] Comment on above:Performed By: #### CBC #### [facility] [address] [place] [address] Dr. Ashlie Grahamrythrocyte distribution width (RBC) [Ratio]15.9 %Critically high 11.0-15.0The [facility] HospitalComment on above:Performed By: #### CBC #### [facility] [address] [place] [address] Dr. Ashlie HillsHematocrit (Bld) [Volume fraction]51.8 %Critically high36.0-48.0 The [facility] HospitalComment on above:Performed By: #### CBC #### [facility] [address] [address] [address] Ashlie HillsHemoglobin (Bld) [Mass/Vol]16.6 g/dLCritically high12.0-16.0The [facility] HospitalComment on above:Performed By: #### CBC #### [facility] [address] [place] [address] Dr. Ashlie Hunter #0.03 10e3/ulNormal0.00-0.03The [facility] HospitalComment on above:Performed By: #### CBC #### [facility] [address] [place] [address] Dr. Ashlie Hunter %0.2 %Normal0.0-0.5The [facility] HospitalComment on above: Performed By: #### CBC #### [facility] [address] [place] [address] Dr. Ashlie Swenson #3.9 103/ulCritically high1.2-3.8The [facility] Comment on above:Performed By: #### CBC #### [facility] [address] [place] [address] Dr. Ashlie Dsouzahocytes/100 WBC (Bld)31.7 %Sddmwv59.5-60.0The [facility] HospitalComment on above:Performed By: #### CBC #### [facility] [address] [place] [address] Dr. Ashlie GhoshUAL DIFF REQNONormalThe [facility] HospitalComment on above: Performed By: #### CBC #### [facility] [address] [place] [address] Dr. Ashlie Mckeon (RBC) [Entitic mass]27.9 ubPnbemn14.7-34.0The [facility] HospitalComment on above:Performed By: #### CBC #### [facility] [address] [place] [address] Dr. Ashlie Mckeon (RBC) [Mass/Vol]32.0 g/gANigsvg40.9-35.2The [facility] HospitalComment on above:Performed By: #### CBC #### [facility] [address] [address] [address] Ashlie MckeonV (RBC) [Entitic vol]87.1 wIJrtfcv49.0-99.0The [facility] HospitalComment on above:Performed By: #### CBC #### [facility] [address] [place] [address] Dr. Ashlie Killian #0.7 103/ulNormal0.3-0.8The [facility] HospitalComment on above:Performed By: #### CBC #### [facility] [address] [place] [address] Dr. Ashlie Palominoocytes/100 WBC (Bld)5.8 %Normal1.7-12.0[facility] Comment on above:Performed By: #### CBC #### [facility] [address] [place] [address] Dr. Ashlie Olsen #7.3 103/ulCritically high1.4-6.5The [facility] Comment on above:Performed By: #### CBC #### [facility] [address] [place] [address] Dr. Ashlie Quiñonesutrophils/100 WBC (Bld)59.6 %Gnbhpd66.0-75.0The [facility] HospitalComment on above:Performed By: #### CBC #### [facility] [address] [place] [address] Dr. Ashlie Lantigualet mean volume (Bld) [Entitic vol]11.7 fLNormal9.5-13.5The [facility] HospitalComment on above:Performed By: #### CBC #### [facility] [address] [place] [address] Dr. Ashlie HillsPLT117 103/ulCritically jqx133-403Rav [facility] HospitalComment on above:Performed By: #### CBC #### [facility] [address] [place] [address] Dr. Ashlie HillsRBC5.95 106/ulCritically high4.20-5.40The [facility] Comment on above:Performed By: #### CBC #### [facility] [address] [address] [address] Ashlie HillsWBC12.3 103/ulCritically high4.0-11.0The [facility] Generalment on above:Performed By: #### CBC #### [facility] [address] [address] [address] Ashlie HillsCT ABD/PELV W CONon [id number] ABD/PELV W CONEXAM: CT ABD/PELV W CON [...] Electronically authenticated by: RICCO PICKARD Date: 2022-10-05 13:13[facility] URINE PROFILEon [id number] Ql (U)NegativeNormal NEGATIVEThe [facility] HospitalComment on above:Performed By: #### POCGLUC #### [facility] [address] [place] [address] Dr. Ashlie HillsClarity (U)CLEARNormalCLEARThe [facility] HospitalComment on above: Performed By: #### POCGLUC #### [facility] [address] [address] [address] Ashlie Prescottlor (U)YELLOWNormalYELLOWSelect Medical Specialty Hospital - Southeast OhioComment on above: Performed By: #### POCGLUC #### [facility] [address] [place] [address] Dr. Ashlie Clayton micrscopic examination will be performed if indicated. NormalMercy Health Fairfield Hospital HospitalComment on above:Performed By: #### POCGLUC #### [facility] [address] [address] [address] Ashlie Rutledgeose Ql (U)NegativeNormalNEGATIVESelect Medical Specialty [facility] Southeast OhioComment on above:Performed By: #### POCGLUC #### [facility] [address] [place] [address] Dr. Ashlie HillsHemoglobin Ql (U)NegativeNormalNEGATIVESelect [facility] [place] Comment on above:Performed By: #### POCGLUC #### [facility] [address] [place] [address] Dr. Ashlie HillsKetones Ql (U)NegativeNormalNEGATIVESelect Medical Specialty [facility] - Southeast OhioComment on above:Performed By: #### POCGLUC #### [facility] [address] [place] [address] Dr. Ashlie HillsLEUKOCYTESNegativeNormalNEGATIVESelect Medical Specialty [facility] OhioCommymichigan medical center alma on above:Performed By: #### POCGLUC #### [facility] [address] [place] [address] Dr. Ashlie HillsNitrite Ql (U)NegativeNormalNEGATIVESelect Medical Specialty [facility] Southeast OhioComment on above:Performed By: #### POCGLUC #### [facility] [address] [place] [address] Dr. Ashlie HillspH (U)6.0 [pH]Normal5-9[facility] OhioComment on above: Performed By: #### POCGLUC #### [facility] [address] [place] [address] Dr. Ashlie HillsProtein (U) [Mass/Vol]100 mg/dLAbnormalNEGATIVE/ TRACEMercy Health Fairfield Hospital HospitalComment on above:Performed By: #### POCGLUC #### [facility] [address] [address] [address] Ashlie HillsSPEC GRAVITY1.195Gkjyqh9.005-<=1.025The [facility] HospitalComment on above:Performed By: #### POCGLUC #### [facility] [address] [address] [address] Ashlie Sullivan MICRO INDINDICATEDNormalThe [facility] HospitalComment on above: Performed By: #### POCGLUC #### [facility] [address] [address] [address] Ashlie Metzbilinogen Qn (U)1.0 {Little'U}/dLNormal0.2 - 1.0The [facility] HospitalComment on above:Performed By: #### POCGLUC #### [facility] [address] [place] [address] Dr. Ashlie HillsLIPASEon [id number] [Catalytic activity/Vol]1771.0 U/L Critically high73.0-393.0The [facility] HospitalComment on above:Performed By: #### CBC #### [facility] [address] [place] [address] Dr. Ashlie Sewell HCG QUALon [id number], QUALNegativeNormalNEGATIVE The [facility] HospitalComment on above:Performed By: #### POCGLUC #### [facility] [address] [place] [address] Dr. Ashlie HillsPROF 14(COMP METB)on [id number] [Mass/Vol]3.2 g/dL Critically low3.4-5.0The [facility] HospitalComment on above:Performed By: #### CBC #### [facility] [address] [place] [address] Dr. Ashlie HillsAlbumin/Globulin [Mass ratio]0.7 {ratio}NormalThe [facility] on above:Performed By: #### CBC #### [facility] [address] [place] [address] Dr. Ashlie MoralesP [Catalytic activity/Vol]70 U/BYmyaqx69-169Rju [facility] HospitalComment on above:Performed By: #### CBC #### [facility] [address] [address] [address] Ashlie MoralesT [Catalytic activity/Vol]11 U/LCritically aqc27-66Hgo [facility] HospitalComment on above:Performed By: #### CBC #### [facility] [address] [address] [address] Ashlie Hassanon gap [Moles/Vol]10.3 mmol/LNormalThe [facility] Comment on above:Performed By: #### CBC #### [facility] [address] [address] [address] Ashlie HillsAST [Catalytic activity/Vol]11 U/LCritically hnp62-30Mzu [facility] HospitalComment on above:Performed By: #### CBC #### [facility] [address] [address] [address] Ashlie HillsBilirubin [Mass/Vol]0.9 mg/dLNormal0.2-1.0[facility] Comment on above:Performed By: #### CBC #### [facility] [address] [address] [address] Ashlie HillsCalcium [Mass/Vol]9.3 mg/dLNormal8.5-10.1[facility] Comment on above:Performed By: #### CBC #### [facility] [address] [address] [address] Ashlie HillsChloride [Moles/Vol]105 mmol/BKbdhop01-170Mhq [facility] Comment on above:Performed By: #### CBC #### [facility] [address] [address] [address] Ashlie HillsCO2 [Moles/Vol]30.6 mmol/PRrnklj93.0-32.0The [facility] Comment on above:Performed By: #### CBC #### [facility] [address] [address] [address] Ashlie HillsCreatinine [Mass/Vol]0.62 mg/dLNormal0.55-1.02The [facility] Generalment on above:Performed By: #### CBC #### [facility] [address] [address] [address] Ashlie GrahamGFR-AF CAMEROONIAN>60Normal>=60The [facility] HospitalComment on above:Performed By: #### CBC #### [facility] [address] [address] [address] Ashlie GrahamGFR-NON AF CAMEROONIAN>60Normal>=60The [facility] HospitalComment on above:Performed By: #### CBC #### [facility] [address] [address] [address] Ashlie HillsGlobulin (S) [Mass/Vol]4.6 g/dLNormalThe [facility] HospitalCommymichigan medical center alma on above:Performed By: #### CBC #### [facility] [address] [address] [address] Ashlie HillsGlucose [Mass/Vol]85 mg/zKLzwfuo08-926PpsSelect [facility] [place] Comment on above:Performed By: #### CBC #### [facility] [address] [address] [address] Ashlie HillsPotassium [Moles/Vol]3.9 mmol/LNormal3.5-5.1The [facility] Comment on above:Performed By: #### CBC #### [facility] [address] [address] [address] Ashlie HillsProtein [Mass/Vol]7.8 g/dLNormal6.4-8.2[facility] Comment on above:Performed By: #### CBC #### [facility] [address] [address] [address] Ashlie HillsSodium [Moles/Vol]142 mmol/POfpwsu465-950Sia [facility] [facility] Comment on above:Performed By: #### CBC #### [facility] [address] [address] [address] Ashlie HillsUrea nitrogen [Mass/Vol]12.0 mg/dLNormal7.0-18.0The [facility] Generalment on above:Performed By: #### CBC #### [facility] [address] [address] [address] Ashlie HillsUrea nitrogen/Creatinine [Mass ratio]19.4 mg/mgNoRiverside Methodist HospitalCommymichigan medical center alma on above:Performed By: #### CBC #### [facility] [address] [address] [address] Ashlie Recinos MICROSCOPIC ONLYon [id number]E SEEN [facility]Commymichigan medical center al[facility] on above:Performed By: #### POCGLUC #### [facility] [address] [address] [address] Ashlie Cortez identified Cx Nom (U)NOT INDICATEDMartin Memorial HospitalCommymichigan medical center alma on above:Performed By: #### POCGLUC #### [facility] [address] [place] [address] Dr. Ashlie Thibodeaux SEENNormalNONE SEENK[facility]tering Health [facility] on above:Performed By: #### POCGLUC #### [facility] [address] [place] [address] Dr. Ashlie Boyerystals LM Nom (Urine sed)NONE SEENNormalNONE SEENKettering Health Troy on above:Performed By: #### POCGLUC #### [facility] [address] [place] [address] Dr. Dailey ChangEpithelial cells LM Ql (Urine sed)MODERATEAbnormalNONE SEEN /RARE [facility] HospitalCommymich[facility] alma on above:Performed By: #### POCGLUC #### [facility] [address] [place] [address] Dr. Ashlie SuarezCOUSNONE SEENNormalNONE SEENKettering Health Troy on above:Performed By: #### POCGLUC #### [facility] [address] [place] [address] Dr. Ashlie PruettKxfhaRKQ8-6Qibdrl1-1Xki [facility] on above:Performed By: #### POCGLUC #### [facility] [address] [place] [address] Dr. Ashlie BhaktaBC0-2AbnormalNONE SEENGerman Hospital [facility] on above: Performed By: #### POCGLUC #### [facility] [address] [address] [address] Ashlie Tapia-19 PCR ([facility])on [id number]-CoV-2 (COVID-19) RNA MADDY+probe Ql (Unsp spec)DetectedAbnormalNOT DETECTEDThe [facility] on above:Result Comment: This test is not yet approved or cleared by the [place] FDA. When there are no FDA-approved or cleared tests available, and other criteria are met, FDA can make tests available under an emergency access mechanism called an Emergency Use Authorization (EUA). The EUA for this test is supported by the [employer] Service [employer] Manager of Health and Human Service's declaration [...] longer be used).Performed By: #### CVDAGS #### [facility] [address] [place] [address] Dr. Ashlie Centeno AND B AGon [id number] City Hospital on above:Result Comment: Negative for Flu A protein angiten. Infection due to Flu A cannot be ruled out. FluA angiten in the sample may be below the detection limit of the test.Performed By: #### INFLUAB #### [facility] [address] [address] [address] Ashlie HillsINFLUBNEGHSEE [facility] on above: Result Comment: Negative for Flu B protein antigen. Infection due to Flu B cannot be ruled out. FluB antigen in the sample may be below the detection limit of the test.Performed By: #### INFLUAB #### [facility] [address] [place] [address] Dr. Ashlie Centeno AGNegativeNormalNEGATIVE SEE COMMENTThe [facility] HospitalComment on above:Performed By: #### INFLUAB #### [facility] [address] [place], [place] [address] Dr. Ashlie Shaffer AGNegativeNormalNEGATIVE SEE COMMENTThe [facility] HospitalComment on above:Performed By: #### INFLUAB #### [facility] [address] [place], [place] [address] Dr. Ashlie HillsCT ABD/PELV W CONon [id number] ABD/PELV W CONINDICATION: Disorder of adrenal gland [...] dating back to at least 10/21/2018, unchanged. https://www.ncbi.nlm.nih.gov/pmc/articles/KFN5069514/ Electronically authenticated by: COLLIN HUERTAS Date: 2022-07-27 14:56Martin Memorial HospitalCREATININEon [id number] [Mass/Vol]0.81 mg/dLNormal 0.55-1.02[facility] OhioComment on above:Performed By: #### CBC #### [facility] [address] [address] [address] Ashlie GrahamGFR-AF CAMEROONIAN>60Normal>=60The [facility] on above:Performed By: #### CBC #### [facility] [address] [address] [address] Ashlie GrahamGFR-NON AF CAMEROONIAN>60Normal>=60The [facility] HospitalComment on above:Performed By: #### CBC #### [facility] [address] [id number] Ashlie Radford LOW EXT W CONT LTon [id number] LOW EXT W CONT LTEXAMINATION: CT LOW [...] Electronically authenticated by: PATRICIA VELOZ Date: 2022-07-18 14:58NoRiverside Methodist HospitalXR KNEE LT 1_2 Von [id number] KNEE LT 1_2 VEXAM: XR KNEE LT [...] Electronically authenticated by: HATTIE BAUTISTA Date: 2022-07-18 12:00Martin Memorial HospitalCovid-19 PCR (CVDTBH)on [id number]-CoV-2 (COVID-19) RNA MADDY+probe Ql (Unsp spec)Not detectedNormalNOT DETECTEDSelect [facility] [place] Comment on above:Result Comment: This test is not yet approved or cleared by the [place] FDA. When there are no FDA-approved or cleared tests available, and other criteria are met, FDA can make tests available under an emergency access mechanism called an Emergency Use Authorization (EUA). The EUA for this test is supported by the [employer] Service [employer] Manager of Health and Human Service's (HHS's) [...] consistent with SARS-CoV-2.Performed By: #### CBC #### [facility] [address] [place] [address] Dr. Ashlie Centeno AND [facility] [id number] Memorial HospitalComment on above:Result Comment: Negative for Flu A protein angiten. Infection due to Flu A cannot be ruled out. FluA angiten in the sample may be below the detection limit of the test.Performed By: #### CBC #### [facility] [address] [place] [address] Dr. Ashlie VelasquezUBNEGDEDRICK [facility] on above: Result Comment: Negative for Flu B protein antigen. Infection due to Flu B cannot be ruled out. FluB antigen in the sample may be below the detection limit of the test.Performed By: #### CBC #### [facility] [address] [place] [address] Dr. Ashlie Centeno AGNegativeNormalNEGATIVE SEE COMMENTThe [facility] on above:Performed By: #### CBC #### [facility] [address] [place] [address] Dr. Ashlie Lockhart B AGNegativeNormalNEGATIVE SEE COMMENTThe [facility] on above:Performed By: #### CBC #### [facility] [address] [place] [address] Dr. Ashlie HillsPOINT OF CARE GLUCOSEon [id number] [Mass/Vol]108 mg/dL Critically jqre80-149Rqp [facility] HospitalCommymichigan medical center alma on above:Performed By: #### CBC #### [facility] [address] [place] [address] Dr. Ashlie HillsANA by IFAon 43-57-8055Ppcqgfpnwtq Antibodies, IFANegativeNormal The [facility] on above:Result Comment: Negative <1:80 Borderline 1:80 Positive >1:80 ICAP nomenclature: AC-0 For more information about Hep-2 cell patterns use ANApatterns.org, the official website for the International Consensus on Antinuclear Antibody (RAGHU) Patterns (ICAP).Performed By: #### ANAIFA #### [facility] [address] [place] [address] Dr. Ashlie HillsIMMUNOFIXATION (TREVON), URINEon [id number] Interpretation:U CommentNormalThe [facility] on above:Result Comment: No monoclonality detected.Performed By: #### CBC #### [facility] [address] [place] [address] Dr. Ashlie HillsIMMUNOFIXATION(TREVON),PROTEIN ELEC(PE),FREon 06-38-7527Hzxeyfa [Mass/Vol]3.0 g/dLNormal2.9-4.4The [facility] Generalment on above:Performed By: #### INFLUAB #### [facility] [address] [place] [address] Dr. Ashlie HillsAlbumin/Globulin [Mass ratio]0.8 {ratio}Normal0.7-1.7The [facility] on above:Performed By: #### INFLUAB #### [facility] [address] [place] [address] Dr. Ashlie HillsUhlmrXuqoo-9-Uagwhcov5.3 g/dLNormal0.0-0.4ThMercer County Community HospitalComment on above:Performed By: #### INFLUAB #### [facility] [address] [place] [address] Dr. Ashlie HillsGahplNplnk-8-Bycuclcv1.0 g/dLNormal0.4-1.0[facility] OhioComment on above:Performed By: #### INFLUAB #### [facility] [address] [place] [address] Dr. Ashlie HillsBeta Globulin1.8 g/dLCritically high0.7-1.3TLakeHealth [facility]wood [facility] Comment on above:Performed By: #### INFLUAB #### [facility] [address] [place] [address] Dr. Ashlie Skelton [place] Lt Chains,S45.2 mg/LCritically high3.3-19.4ThMercer County Community HospitalComment on above:Performed By: #### INFLUAB #### [facility] [address] [place] [address] Dr. Ashlie Skelton Lambda Lt Chains,S40.3 mg/LCritically high5.7-26.3TLakeHealth Beachwood Medical CenterComment on above:Performed By: #### INFLUAB #### [facility] [address] [place] [address] Dr. Ashlie HillsGamma Globulin0.8 g/dLNormal0.4-1.8The [facility] HospitalComment on above:Performed By: #### INFLUAB #### [facility] [address] [place] [address] Dr. Ashlie HillsGlobulin (S) [Mass/Vol]3.9 g/dLNormal2.2-3.9[facility] [place] Comment on above:Performed By: #### INFLUAB #### [facility] [address] [place] [address] Dr. Ashlie HillsImmunofixation Result, SerumCommentNoRiverside Methodist Hospital Comment on above:Result Comment: No monoclonality detected.Performed By: #### INFLUAB #### [facility] [address] [address] [address] Ashlie HillsImmunoglobulin A, Qn, Wyllq381 mg/dLCritically grmn53-908Jhz [facility] Generalment on above:Performed By: #### INFLUAB #### [facility] [address] [place] [address] Dr. Ashlie HillsImmunoglobulin G, Qn, Imynu050 mg/zSUpbsct269-8475Fbg [facility] HospitalCommymichigan medical center alma on above:Performed By: #### INFLUAB #### [facility] [address] [place] [address] Dr. Ashlie HillsImmunoglobulin M, Qn, Serum39 mg/wSTjwaqm08-390Wsk [facility] HospitalCommymichigan medical center alma on above:Performed By: #### INFLUAB #### [facility] [address] [place] [address] Dr. Ashlie HillsKappa/Lambda Ratio, S1.17Gigxrg3.26-1.65[facility] [place] Comment on above:Performed By: #### INFLUAB #### [facility] [address] [place] [address] Dr. Ashlie HillsM-SpikeNot ObservedNormalNot ObservedThe [facility] HospitalCommymichigan medical center alma on above:Performed By: #### INFLUAB #### [facility] [address] [place] [address] Dr. Ashlie Bradford.NormalThe [facility] on above:Performed By: #### INFLUAB #### [facility] [address] [place] [address] Dr. Ashlie Fletcher note:CommentNormalThe [facility] on above: Result Comment: Protein electrophoresis scan will follow via computer, mail, or hourly associate delivery.Performed By: #### INFLUAB #### [facility] [address] [place] [address] Dr. Ashlie HillsProtein [Mass/Vol]6.9 g/dLNormal6.0-8.5ThMercer County Community Hospital Comment on above:Performed By: #### INFLUAB #### [facility] [address] [place] [address] Dr. Ashlie HillsC-PEPTIDE, SERUMon [id number]-Peptide, Serum3.1 ng/mLNormal 1.1-4.4The [facility] HospitalComment on above:Result Comment: C-Peptide reference interval is for fasting patients.Performed By: #### CPEPT #### [facility] [address] [place] [address] Dr. Ashlie Sandoval B SURFACE ANTIGEN SCREENon 29-85-8117STyRf ScreenNegative NormalNegativeThe [facility] HospitalComment on above:Performed By: #### CBC #### [facility] [address] [place] [address] Dr. Ashlie ChuaTIS C VIRUS AB W/ REFLEX QUANTon [id number] AB<0.1Normal 0.0-0.9The [facility] Generalment on above:Performed By: #### INFLUAB #### [facility] [address] [place] [address] Dr. Ashlie HillsInterpretation:CommentNormalThe [facility] HospitalComment on above:Result Comment: Negative Not infected with HCV, unless recent infection is suspected or other evidence exists to indicate HCV infection.Performed By: #### INFLUAB #### [facility] [address] [place] [address] Dr. Ashlie HillsMICROALBUMIN/ CREATININE RATIOon [id number], Jtcqm263.4 ug/mLNormalNot Estab.The [facility] HospitalCommymichigan medical center alma on above:Performed By: #### CBC #### [facility] [address] [place] [address] Dr. Ashlie HillsAlbumin/ Creatinine Fizjj948 mg/g creatCritically high0-29The [facility] HospitalComment on above:Result Comment: Normal: 0 - 29 Moderately increased: 30 - 300 Severely increased: >300Performed By: #### CBC #### [facility] [address] [place] [address] Dr. Ashlie HillsCreatinine, Esktc177.9 mg/dLNormalNot Estab.The [facility] Comment on above:Performed By: #### CBC #### [facility] [address] [address] [address] Ashlie Ramsey 25-[place] LABCORPon 59-79-7066Wumkzqg D, 25-Hydroxy<4.0 Critically low30.0-100.0The [facility] on above:Result Comment: Vitamin D deficiency has been defined by the [place] of [employer] and an Endocrine Society practice guideline as a level of serum 25-OH vitamin D less than 20 ng/mL (1,2). The Endocrine Society went on to further define vitamin D insufficiency as a level between 21 and 29 ng/mL (2). 1. IOM ([place] of [employer]). 2010. Dietary reference intakes for calcium and D. [place]: The National Academies Press. 2. Lynda MF, Keely OLIVEROS, Leandra LOPEZ, et al. Evaluation, treatment, and prevention of vitamin D deficiency: an Endocrine Society clinical practice guideline. JCEM. 2010; 96(7):1911-30.Performed By: #### CBC #### [facility] [address] [place] [address] Dr. Ashlie HillsGLYCOHEMOGLOBIN A1Con [id number] RECOMMENDATIONSEE BELOWNormal The [facility] HospitalComment on above:Result Comment: ADA RECOMMENDED LIMIT 4.0 - 6.0 ADA THERAPEUTIC TARGET < 7.0 ACTION SUGGESTED > 7.0Performed By: #### CVDAGS #### [facility] [address] [address] [address] Ashlie HillsGlucose [Mass/Vol]295 mg/dLNormalThe [facility] HospitalComment on above:Performed By: #### CVDAGS #### [facility] [address] [address] [address] Ashlie HillsHbA1c (Bld) [Mass fraction]11.9 %Critically high4.5-6.2The [facility] HospitalComment on above:Performed By: #### CVDAGS #### [facility] [address] [place] [address] Dr. Ashlie HillsHEMOGRAM AND PLATELon 58-34-0708Wxlwybzzjr (Bld) [Volume fraction]56.3 %Critically high36.0-48.0The [facility] HospitalComment on above: Performed By: #### CVDAGS #### [facility] [address] [place] [address] Dr. Ashlie HillsHemoglobin (Bld) [Mass/Vol]18.0 g/dLCritically high12.0-16.0The [facility] HospitalComment on above:Performed By: #### CVDAGS #### [facility] [address] [place] [address] Dr. Ashlie MckeonH (RBC) [Entitic mass]29.5 lrOmsncp45.7-34.0The [facility] HospitalComment on above:Performed By: #### CVDAGS #### [facility] [address] [place] [address] Dr. Ashlie Mckeon (RBC) [Mass/Vol]32.0 g/iNFlhezv50.9-35.2The [facility] HospitalComment on above:Performed By: #### CVDAGS #### [facility] [address] [place] [address] Dr. Ashlie MckeonV (RBC) [Entitic vol]92.1 yWYhavqi89.0-99.0The [facility] HospitalComment on above:Performed By: #### CVDAGS #### [facility] [address] [place] [address] Dr. Ashlie HillsPLT123 103/ulCritically ltu462-587Eig [facility] HospitalComment on above:Performed By: #### CVDAGS #### [facility] [address] [place] [address] Dr. Ashlie HillsRBC6.11 106/ulCritically high4.20-5.40The [facility] Comment on above:Performed By: #### CVDAGS #### [facility] [address] [place] [address] Dr. Ashlie HillsWBC16.4 103/ulCritically high4.0-11.0The [facility] HospitalComment on above:Performed By: #### CVDAGS #### [facility] [address] [place], [place] [address] Dr. Ashlie OmerID PROFILEon 62-38-9359OGQE-HDL RATIO NORMSSelect Medical Cleveland Clinic Rehabilitation Hospital, AvonComment on above:Result Comment: 3.3 - 4.4 LOW RISK 4.4 - 7.1 AVERAGE RISK 7.1 - 11.0 MODERATE RISK >11.0 HIGH RISKPerformed By: #### CVDAGS #### [facility] [address] [place] [address] Dr. Ashlie HillsCholesterol [Mass/Vol]159 mg/dLNormal<=200[facility] [place] Comment on above:Performed By: #### CVDAGS #### [facility] [address] [place] [address] Dr. Ashlie HillsCholesterol in HDL [Mass/Vol]40 mg/mAJgdagz59-71DkpSelect Medical Specialty Hospital - Southeast OhioComment on above:Performed By: #### CVDAGS #### [facility] [address] [place] [address] Dr. Ashlie HillsCholesterol in LDL [Mass/Vol]81.8 mg/dLMartin Memorial HospitalComment on above:Performed By: #### CVDAGS #### [facility] [address] [place] [address] Dr. Ashlie Lopezesteroralia.total/Cholesterol in HDL [Mass ratio]4.0 {ratio} NormalSelect Medical Specialty Hospital - Southeast OhioComment on above:Performed By: #### CVDAGS #### [facility] [address] [place] [address] Dr. Ashlie Potts NORMAL> or = 60 mg/dl - LOW CARDIOVASCULAR RISK <40 mg/dl - HIGH CARDIOVASCULAR RISKMartin Memorial HospitalComment on above:Performed By: #### CVDAGS #### [facility] [address] [place] [address] Dr. Ashlie HillsLDL CALC NORMALSEE [facility] HospitalComment on above:Result Comment: <100 mg/dl OPTIMAL 100 - 129 mg/dl NEAR OR ABOVE OPTIMAL 130 - 159 mg/dl BORDERLINE HIGH 160 - 189 mg/dl HIGH >190 mg/dl VERY HIGH Performed By: #### CVDAGS #### [facility] [address] [address] [address] Ashlie HillsTriglyceride [Mass/Vol]186 mg/dLCritically high<=150The [facility] HospitalComment on above:Performed By: #### CVDAGS #### [facility] [address] [address] [address] Ashlie HillsVLDL CALC37.2 mg/dLNormalThe [facility] HospitalComment on above: Performed By: #### CVDAGS #### [facility] [address] [address] [address] Ashlie Rhodes FUNCTION PANELon 88-62-2892Dpdtvna [Mass/Vol]3.1 g/dL Critically low3.4-5.0The [facility] HospitalComment on above:Performed By: #### CBC #### [facility] [address] [address] [address] Ashlie HillsCalcium [Mass/Vol]9.2 mg/dLNormal8.5-10.1The [facility] Comment on above:Performed By: #### CBC #### [facility] [address] [address] [address] Ashlie HillsChloride [Moles/Vol]102 mmol/GQzlosj97-673Brz [facility] Comment on above:Performed By: #### CBC #### [facility] [address] [address] [address] Ashlie HillsCO2 [Moles/Vol]31.9 mmol/HYuctcq16.0-32.0The [facility] Comment on above:Performed By: #### CBC #### [facility] [address] [address] [address] Ashlie HillsCreatinine [Mass/Vol]0.68 mg/dLNormal0.55-1.02The [facility] HospitalComment on above:Performed By: #### CBC #### [facility] [address] [address] [address] Dailey ChangEGFR-AF CAMEROONIAN>60Normal>=60The [facility] HospitalComment on above:Performed By: #### CBC #### [facility] [address] [address] [address] Ashlie GraahmGFR-NON AF CAMEROONIAN>60Normal>=60The [facility] HospitalComment on above:Performed By: #### CBC #### [facility] [address] [address] [address] Ashlie HillsGlucose [Mass/Vol]131 mg/dLCritically nejp64-406Iop [facility] HospitalComment on above:Performed By: #### CBC #### [facility] [address] [address] [address] Ashlie HillsPhosphate [Mass/Vol]4.0 mg/dLNormal2.6-4.7The [facility] Comment on above:Performed By: #### CBC #### [facility] [address] [address] [address] Ashlie HillsPotassium [Moles/Vol]4.0 mmol/LNormal3.5-5.1[facility] [place] Comment on above:Performed By: #### CBC #### [facility] [address] [address] [address] Ashlie HillsSodium [Moles/Vol]141 mmol/FGnbavp112-187IixSelect Medical Specialty Hospital [facility] [place] Comment on above:Performed By: #### CBC #### [facility] [address] [address] [address] Ashlie HillsUrea nitrogen [Mass/Vol]17.0 mg/dLNormal7.0-18.0The [facility] HospitalComment on above:Performed By: #### CBC #### [facility] [address] [address] [address] Ashlie HillsUA RANDOM W/MICROSCOPICon 43-66-1588FRHNFVSHSNPY SEENNormalNONE SEENThe [facility] HospitalComment on above:Performed By: #### INFLUAB #### [facility] [address] [address] [address] Ashlie HillsBilirubin Ql (U)NegativeNormalNEGATIVEThe [facility] Comment on above:Performed By: #### INFLUAB #### [facility] [address] [address] [address] Ashlie HillsCASTNONE SEENNormalNONE SEENSelect Medical Specialty Hospital - Southeast OhioComment on above:Performed By: #### INFLUAB #### [facility] [address] [address] [address] Ashlie Chilel (U)CLEARNormalCLEARSelect Medical Specialty Hospital - Southeast OhioComment on above: Performed By: #### INFLUAB #### [facility] [address] [place] [address] Dr. Ashlie Prescottlor (U)YELLOWNormalYELLOWSelect Medical Specialty Hospital - Southeast OhioComment on above: Performed By: #### INFLUAB #### [facility] [address] [place] [address] Dr. Ashlie HillsCrystals LM Nom (Urine sed)NONE SEENNormalNONE SEENSelect Medical Specialty Hospital - Southeast OhioComment on above:Performed By: #### INFLUAB #### [facility] [address] [place] [address] Dr. Dailey ChangEpithelial cells LM Ql (Urine sed)FEWAbnormalNONE SEEN /RARESelect Medical Specialty Hospital - Southeast [place]Comment on above:Performed By: #### INFLUAB #### [facility] [address] [place] [address] Dr. Ashlie HillsGlucose Ql (U)NegativeNormalNEGATIVESelect Medical Specialty Hospital - Southeast OhioComment on above:Performed By: #### INFLUAB #### [facility] [address] [place] [address] Dr. Ashlie HillsHemoglobin Ql (U)NegativeNormalNEGATIVEMercy Health St. [facility] Hospital on above:Performed By: #### INFLUAB #### [facility] [address] [place] [address] Dr. Ashlie HillsKetones Ql (U)NegativeNormalNEGATIVESelect Medical Specialty Hospital - Southeast OhioComment on above:Performed By: #### INFLUAB #### [facility] [address] [place] [address] Dr. Ashlie HillsLEUKOCYTESNegativeNormalNEGATIVESelect Medical Specialty Hospital - Southeast OhioComment on above:Performed By: #### INFLUAB #### [facility] [address] [place] [address] Dr. Ashlie SuarezCOUSCHAD SEENNormalNONE SEENThe [facility] HospitalComment on above:Performed By: #### INFLUAB #### [facility] [address] [place] [address] Dr. Ashlie Santostrite Ql (U)NegativeNormalNEGATIVEThe [facility] HospitalComment on above:Performed By: #### INFLUAB #### [facility] [address] [place] [address] Dr. Ashlie HillspH (U)5.5 [pH]Normal5-9The [facility] HospitalComment on above: Performed By: #### INFLUAB #### [facility] [address] [place] [address] Dr. Ashlie HillsRxtukDNT8-5Fmnwzk1-9Zew [facility] HospitalComment on above:Performed By: #### INFLUAB #### [facility] [address] [place] [address] Dr. Ashlie HillsSPEC GRAVITY>=1.971Ilasphbt8.005-<=1.025The [facility] Comment on above:Performed By: #### INFLUAB #### [facility] [address] [place] [address] Dr. Ashlie Vaughn BEGKJFJ661 mg/dlAbnormalNEGATIVE/ TRACEThe [facility] Comment on above:Performed By: #### INFLUAB #### [facility] [address] [place] [address] Dr. Ashlie Metzbilinogen Qn (U)0.2 {Little'U}/dLNormal0.2 - 1.0The [facility] HospitalComment on above:Performed By: #### INFLUAB #### [facility] [address] [place] [address] Dr. Ashlie HillsWBCNONTracey SEENNormalNONE SEENThe [facility] HospitalComment on above: Performed By: #### INFLUAB #### [facility] [address] [place] [address] Dr. Ashlie Christine ACID SERUMon [id number] [Mass/Vol]5.0 mg/dLNormal 2.6-6.0The [facility] HospitalComment on above:Performed By: #### INFLUAB #### [facility] [address] [address] [address] Ashlie Recinos T PROTEIN CREAT RATIOon 71-16-1554Glyamhy (U) [Mass/Vol] 77.9 mg/dLCritically high<=12.0The [facility] HospitalComment on above:Performed By: #### CVDAGS #### [facility] [address] [place] [address] Dr. Ashlie Sullivan PROT CREAT RAT0.44NormalThe [facility] HospitalComment on above: Performed By: #### CVDAGS #### [facility] [address] [place] [address] Dr. Ashlie Recinos UTCLG111.15 mg/pOFqaere67.00-300.00[facility] Comment on above:Performed By: #### CVDAGS #### [facility] [address] [place] [address] Dr. Ashlie OrdoñezLTREGINO URINEon [id number] URINECulture Observations: GREATER THAN TWO ORGANISMS PRESENT, HEAVILY MIXED. PLEASE RESUBMIT CLEAN CATCH MID-STREAM URINE IF CLINICALLY INDICATED.NormalThe [facility] HospitalComment on above:Performed By: #### INFLUAB #### [facility] [address] [place] [address] Dr. Ashlie VernonC AUTO DIFFon [id number] #0.1 103/ulNormal0.0-0.1The [facility] HospitalComment on above:Performed By: #### CBC #### [facility] [address] [place] [address] Dr. Ashlie HillsBasophils/100 WBC (Bld)0.5 %Normal0.2-2.0[facility] Comment on above:Performed By: #### CBC #### [facility] [address] [place] [address] Dr. Ashlie Mcintosh #0.4 103/ulNormal0.0-0.7The [facility] HospitalComment on above: Performed By: #### CBC #### [facility] [address] [address] [address] Ashlie Grahamosinophils/100 WBC (Bld)2.4 %Normal0.9-7.0[facility] Comment on above:Performed By: #### CBC #### [facility] [address] [place] [address] Dr. Ashlie Grahamrythrocyte distribution width (RBC) [Ratio]14.1 %Zhcdfq43.0-15.0 [facility] Southeast OhioComment on above:Performed By: #### CBC #### [facility] [address] [place] [address] Dr. Ashlie HillsHematocrit (Bld) [Volume fraction]55.9 %Critically high36.0-48.0 The [facility] HospitalComment on above:Performed By: #### CBC #### [facility] [address] [place] [address] Dr. Ashlie HillsHemoglobin (Bld) [Mass/Vol]17.9 g/dLCritically high12.0-16.0[facility] OhioComment on above:Performed By: #### CBC #### [facility] [address] [place] [address] Dr. Ashlie Hunter #0.06 10e3/ulCritically high0.00-0.03The [facility] Comment on above:Performed By: #### CBC #### [facility] [address] [place] [address] Dr. Ashlie Hunter %0.4 %Normal0.0-0.5ThMercer County Community HospitalComment on above: Performed By: #### CBC #### [facility] [address] [place] [address] Dr. Ashlie Swenson #5.8 103/ulCritically high1.2-3.8The [facility] Comment on above:Performed By: #### CBC #### [facility] [address] [place] [address] Dr. Ashlie Jademphocytes/100 WBC (Bld)35.4 %Fmacay34.5-60.0The [facility] HospitalComment on above:Performed By: #### CBC #### [facility] [address] [place] [address] Dr. Ashlie GhoshUAL DIFF REQNONormalThe [facility] HospitalComment on above: Performed By: #### CBC #### [facility] [address] [place] [address] Dr. Ashlie Mckeon (RBC) [Entitic mass]29.4 ssCfxcmr78.7-34.0The [facility] HospitalComment on above:Performed By: #### CBC #### [facility] [address] [place] [address] Dr. Ashlie Mckeon (RBC) [Mass/Vol]32.0 g/wXVnybfo83.9-35.2The [facility] HospitalComment on above:Performed By: #### CBC #### [facility] [address] [place] [address] Dr. Ashlie Mckeon (RBC) [Entitic vol]91.8 hTNbwhzk01.0-99.0The [facility] HospitalComment on above:Performed By: #### CBC #### [facility] [address] [place] [address] Dr. Ashlie Killian #0.8 103/ulNormal0.3-0.8The [facility] HospitalComment on above:Performed By: #### CBC #### [facility] [address] [place] [address] Dr. Ashlie Palominoocytes/100 WBC (Bld)4.8 %Normal1.7-12.0[facility] Comment on above:Performed By: #### CBC #### [facility] [address] [place] [address] Dr. Ashlie Olsen #9.3 103/ulCritically high1.4-6.5The [facility] Comment on above:Performed By: #### CBC #### [facility] [address] [address] [address] Ashlie HillsNeutrophils/100 WBC (Bld)56.5 %Wqziau85.0-75.0The [facility] HospitalComment on above:Performed By: #### CBC #### [facility] [address] [address] [address] Ashlie HillsPlatelet mean volume (Bld) [Entitic vol]12.9 fLNormal9.5-13.5The [facility] HospitalComment on above:Performed By: #### CBC #### [facility] [address] [address] [address] Ashlie HillsPLT127 103/ulCritically gko674-643Wng [facility] HospitalComment on above:Performed By: #### CBC #### [facility] [address] [address] [address] Ashlie HillsRBC6.09 106/ulCritically high4.20-5.40The [facility] Comment on above:Performed By: #### CBC #### [facility] [address] [address] [address] Ashlie HillsWBC16.4 103/ulCritically high4.0-11.0The [facility]ron Generalment on above:Performed By: #### CBC #### [facility] [address] [address] [address] Ashlie HillsCT ABD/PELVIS WO CONon [id number] ABD/PELVIS WO CON Begin Addendum #1 Mildly [...] without diverticulitis. Severe right hip degenerative change.NormalThe [facility] URINE PROFILEon [id number] Ql (U) NegativeNormalNEGATIVEThe [facility] HospitalComment on above:Performed By: #### EVONNE CLAY #### [facility] [address] [place] [address] Dr. Ashlie Chilel (U)CLEARNormalCLEARThe [facility] HospitalComment on above: Performed By: #### KRISTINAR, UMICRO #### [facility] [address] [address] [address] Ashlie Roberts (U) ORANGEAbnormalYELLOWSelect Medical Specialty Hospital - Southeast OhioComment on above:Performed By: #### OBED, UMICRO #### [facility] [address] [address] [address] Ashlie Clayton micrscopic examination will be performed if indicated. NormalSelect Medical Specialty Hospital - Southeast OhioComment on above:Performed By: #### KRISTINAR, UMICRO #### [facility] [address] [address] [address] Ashlie HillsGlucose Ql (U)250 mg/dlAbnonovant health huntersville medical centerNEGHighland District Hospital Comment on above:Performed By: #### OBED, UMICRO #### [facility] [address] [address] [address] Ashlie HillsHemoglobin Ql (U)NegativermalNEGHighland District Hospital Comment on above:Performed By: #### OBED, UMICRO #### [facility] [address] [address] [address] Ashlie Connor Ql (U)NegativeNormalNEGATIVESelect Medical Specialty Hospital - Southeast OhioComment on above:Performed By: #### OBED, UMICRO #### [facility] [address] [address] [address] Ashlie HillsLEUKOCYTESNegativeNormalNEGHighland District HospitalComment on above:Performed By: #### KRISTINAR, UMICRO #### [facility] [address] [address] [address] Ashlie Santostrite Ql (U)NegativeNormalNEGATIVESelect Medical Specialty Hospital - Southeast OhioComment on above:Performed By: #### ERUR, UMICRO #### [facility] [address] [address] [address] Ashlie HillspH (U)5.0 [pH]Normal5-9[facility] OhioComment on above: Performed By: #### ERUR, UMICRO #### [facility] [address] [place] [address] Dr. Ashlie HillsProtein (U) [Mass/Vol]100 mg/dLAbnormalNEGATIVE/ TRACEThe [facility] HospitalComment on above:Performed By: #### MADELINE CLAYRO #### [facility] [address] [place] [address] Dr. Ashlie HillsSPEC GRAVITY>=1.926Pekhyceg9.005-<=1.025The [facility] Comment on above:Performed By: #### MADELINE CLAYRO #### [facility] [address] [place] [address] Dr. Ashlie Sullivan MICRO INDINDICATEDNoRiverside Methodist HospitalComment on above: Performed By: #### EVONNE CLAY #### [facility] [address] [place] [address] Dr. Ashlie Metzbilinogen Qn (U)1.0 {Little'U}/dLNormal0.2 - 1.0The [facility] HospitalComment on above:Performed By: #### EVONNE CLAY #### [facility] [address] [place] [address] Dr. Ashlie Jones CHEM 8 (BAS METB)on [id number] gap [Moles/Vol]12.1 mmol/LNormalThe [facility] HospitalComment on above:Performed By: #### INFLUAB #### [facility] [address] [place] [address] Dr. Ashlie HillsCalcium [Mass/Vol]9.0 mg/dLNormal8.5-10.1[facility] Comment on above:Performed By: #### INFLUAB #### [facility] [address] [place] [address] Dr. Ashlie HillsChloride [Moles/Vol]101 mmol/ZSwbkpy68-304LnfSelect Medical Specialty [facility] [place] Comment on above:Performed By: #### INFLUAB #### [facility] [address] [place] [address] Dr. Ashlie HillsCO2 [Moles/Vol]29.1 mmol/CNymeev29.0-32.0[facility] Comment on above:Performed By: #### INFLUAB #### [facility] [address] [place] [address] Dr. Ashlie HillsCreatinine [Mass/Vol]0.86 mg/dLNormal0.55-1.02The [facility] HospitalComment on above:Performed By: #### INFLUAB #### [facility] [address] [place] [address] Dr. Dailey ChangEGFR-AF CAMEROONIAN>60Normal>=60The [facility] HospitalComment on above:Performed By: #### INFLUAB #### [facility] [address] [place] [address] Dr. Ashlie GrahamGFR-NON AF CAMEROONIAN>60Normal>=60The [facility] HospitalComment on above:Performed By: #### INFLUAB #### [facility] [address] [place] [address] Dr. Ashlie HillsGlucose [Mass/Vol]236 mg/dLCritically vwiv55-899Oqs [facility] HospitalComment on above:Performed By: #### INFLUAB #### [facility] [address] [place] [address] Dr. Ashlie HillsPotassium [Moles/Vol]4.2 mmol/LNormal3.5-5.1The [facility] Comment on above:Performed By: #### INFLUAB #### [facility] [address] [place] [address] Dr. Ashlie HillsSodium [Moles/Vol]138 mmol/CPecdhi857-790Dit [facility] Comment on above:Performed By: #### INFLUAB #### [facility] [address] [place] [address] Dr. Ashlie HillsUrea nitrogen [Mass/Vol]11.0 mg/dLNormal7.0-18.0The [facility] HospitalComment on above:Performed By: #### INFLUAB #### [facility] [address] [place] [address] Dr. Yilan ChangUrea nitrogen/Creatinine [Mass ratio]12.8 mg/mgNoRiverside Methodist HospitalComment on above:Performed By: #### INFLUAB #### [facility] [address] [place] [address] Dr. Ashlie Recinos MICROSCOPIC ONLYon [id number]N SEEN [facility] OhioCommymichigan medical center alma on above:Performed By: #### OBED UMICRO #### [facility] [address] [address] [address] Ashlie Cortez identified Cx Nom (U)INDICATEDMartin Memorial HospitalCommymichigan medical center alma on above:Performed By: #### OBED UMICRO #### [facility] [address] [place] [address] Dr. Ashlie Thibodeaux SEENNormalNONE SEENSelect Medical Specialty Hospital - Southeast OhioCommymichigan medical center alma on above:Performed By: #### OBED UMICRO #### [facility] [address] [place] [address] Dr. Ashlie Banegas LM Nom (Urine sed)NONE SEENNormalNONE SEENSelect Medical Specialty Hospital - Southeast OhioCommymichigan medical center alma on above:Performed By: #### OBED UMICRO #### [facility] [address] [place] [address] Dr. Dailey ChangEaustinthelial cells LM Ql (Urine sed)MODERATEAbnormalNONE SEEN /RARE The [facility] HospitalCommymichigan medical center alma on above:Performed By: #### OBED UMICRO #### [facility] [address] [place] [address] Dr. Ashlie HaroE SEENNormalNONE SEENSelect Medical Special[facility] Hospital - Southeast OhioCommymichigan medical center alma on above:Performed By: #### OBED UMICRO #### [facility] [address] [place] [address] Dr. Ashlie PruettDxbsbYRS3-8Sdegkj4-5Gbp [facility] HospitalCommymichigan medical center alma on above:Performed By: #### OBED UMICRO #### [facility] [address] [place] [address] Dr. Ashlie BhaktaBC0-2AbnormalNONE SEENKettering Health [facility] on above: Performed By: #### ERUR, UMICRO #### [facility] [address] [address] [address] Ashlie VelásquezASTPRESENTAbnormalNONE SEENKettering Health Troy on above:Performed By: #### ERUR, UMICRO #### [facility] [address] [address] [address] Ashlie Hutchinson RIGHT 1 OR 2 VWS WITH PELVISon [id number] RIGHT 1 OR 2 VWS WITH PELVISUnWVUMedicine [facility] Department of Radiology [address] [place] [id number] Patient Name: MITZI MACIAS : 1970 Sex: F Age: Race: White Pt. Location: Patient Status: O Ordered Date: 07/20/2020 1:45:00 PM Completed Date: 07/20/2020 01:57 PM Requesting Provider: LIZ EISENBERG Attending Provider: LIZ EISENBERG Report Copy To: MCKAYLA BLAS Signs & Symptoms: M25.551 Pain in right hip I10 History: [place] Comments: evaluate Exam: HIP RIGHT 1 OR [...] MRI. Electronically signed: Pipo Acevedo. Transcribed by: [email or web address], User Resident: Electronically Signed by: PIPO ACEVEDO @ 07/20/2020 03:45 [facility] HospitalComment on above:Order Comment: evaluate Vital Signs Date TimeVital SignValuePerforming ZijblsxdlVuxbvtxt21-76-5545 17:58-0400Body onhbkg912.1 cmLisa Aichholz GAMEPLAY ENGINEER-C Work Phone: [phone]10-22-2025 17:58-0400 Body mass index (BMI) [Ratio]61 kg/m2Lisa Aichholz GAMEPLAY ENGINEER-C Work Phone: [phone]10-22-2025 17:58-0400 Body tpglmrguqgr43.1 [degF]Mckayla Aichholz GAMEPLAY ENGINEER-C Work Phone: [phone]10-22-2025 17:58-0400 Body fengjo836.18 kgLisa Aichholz GAMEPLAY ENGINEER-C Work Phone: [phone]10-22-2025 17:58-0400 Diastolic blood baqdpysw86 mm[Hg]Mckayla Aichholz [employer]AMEPLAY ENGINEER-C Work Phone: [phone]10-22-2025 17:58-0400 Heart rate84 /minLisa Aichholz GAMEPLAY ENGINEER-C Work Phone: [phone]10-22-2025 17:58-0400 Respiratory rate20 /minLisa Aichholz GAMEPLAY ENGINEER-C Work Phone: [phone]10-22-2025 17:58-0400 SaO2% (BldA) [Mass fraction]90 %Mckayal Aichholz GAMEPLAY ENGINEER-C Work Phone: [phone]10-22-2025 17:58-0400 Systolic blood arsumaxx705 mm[Hg]Mckayla Aichholz GAMEPLAY ENGINEER-C Work Phone: [facility]09-29-2025 15:37-0400 Body wtomcwdgdfe89.1 [degF]Mckayla Harshadholz GAMEPLAY ENGINEER-C Work Phone: [phone]-[facility]09-29-2025 15:37-0400 Diastolic blood icrmpgoa40 mm[Hg]Mckaylataryn Patriciaholz GAMEPLAY ENGINEER-C Work Phone: [phone]09-29-2025 15:37-0400 Heart rate81 /minLisa Aichholz GAMEPLAY ENGINEER-C Work Phone: [phone]09-29-2025 15:37-0400 Respiratory rate20 /minLisa Aichholz GAMEPLAY ENGINEER-C Work Phone: [phone]09-29-2025 15:37-0400 SaO2% (BldA) [Mass fraction]92 %Mckayla Harshadholz GAMEPLAY ENGINEER-C Work Phone: [phone] [place], [place] [address]509-29-2025 15:37-0400 Systolic blood aszqipzb410 mm[Hg]Mckayla Patriciaholz GAMEPLAY ENGINEER-C Work Phone: [phone]-[facility]07-24-2025 09:48-0400 Body xqtwyp268.2 Reji Souza MD Work Phone: [facility] InstituteGyikcgbpvr24-18-6187 09:48-0400Body mass index (BMI) [Ratio]56.38 kg/s7PyydlRain Suoza MD Work Phone: [facility] InstituteYojcaieclm48-36-7679 09:48-0400Body rnmetz450.29 kgRain Souza MD Work Phone: [facility] InstituteLyrwxausvs30-83-1766 09:48-0400Diastolic blood ujtkqwma56 mm[Hg]Rain Souza MD Work Phone: [facility] InstituteKahjcqpatm95-78-7144 09:48-0400Heart rate72 /min Rain Souza MD Work Phone: noMineral Area Regional Medical CenterXyltgacndu42-12-8178 09:48-0400Respiratory rate16 /minRain Souza MD Work Phone: noMineral Area Regional Medical CenterJndmtsalru07-39-0664 09:48-4078OsF7% (BldA) [Mass fraction]84 %Rain Souza MD Work Phone: [facility] InstituteFdgsnmkwzy92-19-6615 09:48-0400Systolic blood ycciinaf956 mm[Hg]Rain Souza MD Work Phone: [facility] InstituteNzpithhwyy26-94-6572 18:11-0400Body mass index (BMI) [Ratio]58.64 kg/m2Lisa Chetz GAMEPLAY ENGINEER Work Phone: [facility] InstituteHxktdcytpt12-19-9674 18:11-0400Body temperature 98.49 [degF]Mckayla Wan GAMEPLAY ENGINEER Work Phone: [facility] InstituteZjyclfmhle64-83-5710 18:11-0400Body .83 kgLisa Chetz GAMEPLAY ENGINEER Work Phone: [facility] InstituteEkjmcfljct49-58-9917 18:11-0400Diastolic blood ajmjyeug21 mm[Hg]Mckayla Wan GAMEPLAY ENGINEER Work Phone: [facility] InstituteMjkpacrfev72-99-1891 18:11-0400Heart rate81 /min Mckayla Wan GAMEPLAY ENGINEER Work Phone: [facility] InstituteXrjaxrblar47-45-8298 18:11-0400Respiratory rate20 /minLisa Chetz GAMEPLAY ENGINEER Work Phone: [facility] InstitutePtgkahowvg60-41-9727 18:11-0183PjR4% (BldA) [Mass fraction]90 %Mckayla Wan GAMEPLAY ENGINEER Work Phone: [facility] InstituteSwrwdidggt67-55-6965 18:11-0400Systolic blood apxpidmz835 mm[Hg]Mckayla Wan GAMEPLAY ENGINEER Work Phone: [facility] InstituteHapydfbgot95-38-3021 10:19-0400Body temperature 98.01 [degF]Mckayla Rosenbergz GAMEPLAY ENGINEER Work Phone: [facility] InstitutePipujbrsxe17-21-2784 10:19-0400Diastolic blood vavevjzv02 mm[Hg]Mckayla Harshadholz GAMEPLAY ENGINEER Work Phone: [facility] InstituteHicdtejemr67-80-9158 10:-0Heart rate71 /min Mckayla Harshadholz GAMEPLAY ENGINEER Work Phone: [facility] InstituteXzktacwyxf79-57-7976 10:-399Respiratory rate20 /minLisa Harshadholz GAMEPLAY ENGINEER Work Phone: [facility] InstituteYipcbdzpok15-80-4670 10:0415CiA2% (BldA) [Mass fraction]88 %Mckayla Rosenbergz GAMEPLAY ENGINEER Work Phone: [facility] InstituteOluwvdsfar24-82-4508 10:-399Systolic blood hmpnfrui463 mm[Hg]Mckayla Harshadholz GAMEPLAY ENGINEER Work Phone: [facility] InstituteSzfastqzha61-22-4966 14:11-0400Body yeawoa023.2 cmLisa Harshadholz GAMEPLAY ENGINEER Work Phone: [facility] InstituteBvjsjwnodx44-29-7608 14:11-0400Body mass index (BMI) [Ratio]56.51 kg/m2Maria De Jesussa Harshadholz GAMEPLAY ENGINEER Work Phone: [facility] InstituteNruatnwhcl15-47-2811 14:11-0400Body temperature 98.71 [degF]Mckayla Harshadholz GAMEPLAY ENGINEER Work Phone: [facility] InstituteYhxuuydnbu90-95-1076 14:11-0400Body loxewm713.66 kgLisa Juanjosehholz GAMEPLAY ENGINEER Work Phone: [facility] InstituteKgxpddkafx43-26-7377 14:11-0400Diastolic blood bkgqnuev85 mm[Hg]Mckayla Harshadholz GAMEPLAY ENGINEER Work Phone: [facility] InstituteSseywzlaky96-49-8654 14:11-0400Heart rate75 /min Mckayla Harshadholz GAMEPLAY ENGINEER Work Phone: [address] [address]Gkxrgaqzwg59-48-2346 14:11-0400Respiratory rate18 /minMaria De Jesus Wan GAMEPLAY ENGINEER Work Phone: [facility] InstituteUxtcqbgipe06-32-5158 14:11-0406WuN2% (BldA) [Mass fraction]90 %Mckayla Wan GAMEPLAY ENGINEER Work Phone: noMineral Area Regional Medical CenterYetohikgss24-65-5690 14:11-0400Systolic blood qgqewejb678 mm[Hg]Mckayla Sowdona GAMEPLAY ENGINEER Work Phone: [facility] InstituteXaaiavorxm51-95-3239 11:21-0400Body .2 Reji Souza MD Work Phone: [facility] InstituteRiedxafswl35-80-3107 11:21-0400Body mass index (BMI) [Ratio]55.91 kg/l1LkpdpRain Souza MD Work Phone: [address] [place], [place] [address]Wtndqggilk02-63-9057 11:21-0400Body .93 kgRain Souza MD Work Phone: [facility] InstituteQrjhjdvvgq41-59-3176 11:21-0400Diastolic blood mm[Hg]Rain Souza MD Work Phone: [address] [place], [place] [address]Xnhlvaiaql74-04-7112 11:21-0400Heart rate70 /min Rain Souza MD Work Phone: [facility] InstituteXhblwvnvbb74-21-2914 11:21-0400Respiratory rate16 /minRain Souza MD Work Phone: [address] [place], [place] [address]Ywrwglaadg17-61-3288 11:21-9030PaG1% (BldA) [Mass fraction]91 %Rain Souza MD Work Phone: [address] [place], [place] [address]Ohrijkofbu18-02-5633 11:21-0400Systolic blood vrxmeylu719 mm[Hg]Rain Souza MD Work Phone: [address] [place], [place] [address]Jtthpfvruz16-32-3597 17:44-0500Body mass index (BMI) [Ratio]57.31 kg/m2Mckayla Blas GAMEPLAY ENGINEER Work Phone: [facility] InstituteYctgxyzobo33-25-1399 17:44-0500Body temperature 98.01 [degF]Mckayla Sowdona GAMEPLAY ENGINEER Work Phone: [facility] InstituteNubesxoatk44-80-9286 17:44-0500Body brfoxt624.97 kgMckayla Juanjosecayetanodallin GAMEPLAY ENGINEER Work Phone: [facility] InstituteGitjtuccup86-35-8025 17:44-0500Diastolic blood tivbyupl42 mm[Hg]Mckayla Wan GAMEPLAY ENGINEER Work Phone: [facility] InstituteGrlmsiebzq32-39-3957 17:44-0500Heart rate83 /min Mckayla Wan GAMEPLAY ENGINEER Work Phone: [facility] InstituteDnsziazsgs98-25-9044 17:44-0500Respiratory rate18 /minMckayla Blas GAMEPLAY ENGINEER Work Phone: [facility] InstituteBbbjpmdixq07-54-6988 17:44-0240BnN0% (BldA) [Mass fraction]91 %Mckayla Patriciadallin GAMEPLAY ENGINEER Work Phone: [facility] InstituteJjgflgmeik30-17-6391 17:44-0500Systolic blood jgvycrmj398 mm[Hg]Mckayla Patriciadallin GAMEPLAY ENGINEER Work Phone: [facility] InstituteWcnfgtivfn70-67-1240 10:00-0500Blood Pressure LocationPaalexezra ARAUZ [facility] [place] 957202-04-2024 10:00-0500Diastolic blood isgsrohb60 mm[Hg]Elbert ARAUZ [facility] [place] 957202-04-2024 10:00-0500Heart rate76 /minElbert ARAUZ [facility] [place] 957202-04-2024 10:00-0500Systolic blood jftfooeq019 mm[Hg]Elbert ARAUZ [facility] [place] 928991-19-2024 10:20-0500Body fnkivv620.2 Reji Souza MD Work Phone: [address] [place], [place] [address]Qolamgssmj18-62-0395 10:20-0500Body mass index (BMI) [Ratio]56.7 kg/t7UanjgRain Souza MD Work Phone: [address] [place], [place] [address]Zxqtishojd89-10-1443 10:20-0500Body derkvm500.2 kgRain Souza MD Work Phone: [address] [place], [place] [address]Nzrjzefnmc82-25-5794 10:20-0500Diastolic blood xumvpzin26 mm[Hg]Rain Souza MD Work Phone: [address] [place], [place] [address]Vhgmofxghx90-92-1771 10:20-0500Heart rate72 /min Rain Souza MD Work Phone: [address] [place], [place] [address]Hfklgbgteq86-33-0399 10:20-0500Respiratory rate16 /minRain Souza MD Work Phone: [place] [address]Enwxdeypsh05-68-4715 10:20-0500Systolic blood wowuoobi696 mm[Hg]Rain Souza MD Work Phone: [address] [place], [place] [address]Trfcdxpljj94-64-7703 10:27-0400Body yarfgc913.1 Jamal Blas GAMEPLAY ENGINEER Work Phone: [facility] InstituteDsydnxctlf39-06-0188 10:27-0400Body mass index (BMI) [Ratio]61.01 kg/m2Mckayla Blas GAMEPLAY ENGINEER Work Phone: [facility] InstituteHfsamnjwuj37-50-8798 10:27-0400Body temperature 98.49 [degF]Mckayla Bals GAMEPLAY ENGINEER Work Phone: [facility] InstituteNyybksgwuf53-81-1624 10:27-0400Body .29 kgMckayla Blas GAMEPLAY ENGINEER Work Phone: [place] [address]Fvhnxugeni19-85-1198 10:27-0400Diastolic blood ivvtcfuy56 mm[Hg]Mckayla Blas GAMEPLAY ENGINEER Work Phone: noMineral Area Regional Medical CenterEtwayypadh96-70-4382 10:27-0400Heart rate77 /min Mckayla Blas GAMEPLAY ENGINEER Work Phone: [facility] InstituteSjpssdahpt95-42-4774 10:27-0400Respiratory rate19 /minMckayla Blas GAMEPLAY ENGINEER Work Phone: [facility] InstituteNqiglvwflc43-72-2238 10:27-6963NgZ4% (BldA) [Mass fraction]92 %Mckayla Blas GAMEPLAY ENGINEER Work Phone: [facility] InstituteAuagyowzth48-01-6384 10:27-0400Systolic blood mm[Hg]Mckayla Blas GAMEPLAY ENGINEER Work Phone: [facility] InstituteSqtbtdsekw35-30-2212 15:00-0400Body nnagnz101.18 cmAbdul Tico Other Akippa [employer] Other 0-673888-50449026-12-1150 15:00-0400Body zdmwokvuggz56.6 [degF]Stephanie Tico Other [employer] Other 390563-59-3168 15:00-0400Diastolic blood odljsuon96 mm[Hg] Stephanie Tico Other [employer] Other 08-31-2022 15:00-0400Respiratory rate20 /minAbdul Tico Other [employer] Other 6-650427-47509819-38-4582 15:00-0941AyY5% (BldA) [Mass fraction]91 % Stephanie Tico Other [employer] Other 633283-31-8002 15:00-0400Systolic blood yufzgjkm704 mm[Hg] Stephanie Tico Other [employer] Other 08-15-2022 09:20-0400Body vqingp270.18 cmAbdul Tico Other Tabor [employer] Other 08-15-2022 09:20-0400Body pxveebdygod43.5 [degF]Stephanie Tico Other [employer] [employer] Other 08-15-2022 09:20-0400Diastolic blood wofvsddo14 mm[Hg] Stephanie Tico Other [facility] Other 08-15-2022 09:20-0400Respiratory rate20 /minAbdul Tico Other Tabor [employer] Other 08-15-2022 09:20-6272DyF9% (BldA) [Mass fraction]91 % Stephanie Tico Other [facility]abor [employer] Other 08-15-2022 09:20-0400Systolic blood wturnavi192 mm[Hg] Stephnaie Tico Other [employer] [employer] Other 08-01-2022 10:24-0400Blood Pressure LocationPabaptist health paducahezra ARAUZ [facility] 08-01-2022 10:24-0400Diastolic blood mpkujart12 mm[Hg] Elbert ARAUZ [facility] 08-01-2022 10:24-0400Heart rate70 /minPabaptist health paducahezra ARAUZ [facility] 08-01-2022 10:24-0400Respiratory rate16 /minPatrick REGLA [facility] 08-01-2022 10:24-0400Systolic blood mfqxxfma929 mm[Hg] Elbert ARAUZ [facility] Encounters Encounter DateEncounter TypeCare ProviderFacilityStart: 79-84-5451vguqsgpiukSwil Jo Aichholz DINING ROOM COORDINATOR-CNPFacility:[facility]: 05-22-2025 ambulatoryLance Huey Urias DPMFacility:[facility]tart: 05-18-2025 End: 95-80-7697holuqigfunHnaz Jo Aichholz DINING ROOM COORDINATOR-CNPFacility:[facility]trStart: 04-29-2025 End: 99-53-0220finbugveqrVacg J Aichholz GAMEPLAY ENGINEER-C Work Phone: -[facility] ClydeStart: 04-29-2025 End: 87-55-5499Rmzjpvn encounter procedureLisa Krystal Blas GAMEPLAY ENGINEER-C-[facility] [place] Work Phone: Start: 04-23-2025 End: 64-57-8617vmjtmhggsxVgpcld Nas Rojas DINING ROOM COORDINATOR-CNPFacility:[facility] FindlayStart: 04-17-2025 End: 14-06-6005jcqelhszmlLbtn Jo Aichholz DINING ROOM COORDINATOR-CNPFacility:[facility] Hospitaltart: 04-06-2025 End: 97-07-4097oeqyexuechYdda J Aichholz GAMEPLAY ENGINEER-C Work Phone: [facility] Work Phone: Start: 04-06-2025 End: 32-17-3836Hnczjkb encounter procedureLisa Krystal Blas GAMEPLAY ENGINEER-C-[facility] [place] Work Phone: Start: 84-27-1601Tsljzik encounter procedureMckayla Blas GAMEPLAY ENGINEER-C Work Phone: [facility]: 61-34-8481Cgb- patient / Non-visitLanashley Urias DPM-[facility] Work Phone: Start: 34-00-5296Htt-patient / Non-visitPrice Ramsey DO-[facility] Work Phone: Start: 44-12-2530yobveevzijLbwbby Nas Bob DINING ROOM COORDINATOR-CYBER INCIDENT ANALYST Facility:[facility] [place]Start: 03-23-2025 End: 20-66-9108zwpsgmmcpvRrispd Nas Bob DINING ROOM COORDINATOR-CNPFacility:[facility] FindlayStart: 03-11-2025 End: 94-93-5887lwbcoaptcuFekos Huey Urias DPMFacility: [facility]trStart: 03-09-2025 End: 02-75-6398YugrhmAnck Aichholz NP Work Phone: [facility] FMComment on above:Tobacco user; Encounter for smoking cessation counselingStart: 01-29-2025 End: 21-65-2819Ddfoni Jack Souza MD Work Phone: noms ENDOCRINOLOGYStart: 01-29-2025 End: 22-19-1146Kiyqjfashley Souza MD Work Phone: noms ENDOCRINOLOGYStart: 01-29-2025 End: 11-18-3409Jqwhoocbi Result EncounterGeneric External Data ProviderNOMS External Department UnsolicitedStart: 01-29-2025 End: 17-42-4838izdifefsunMDAJARichard Negron AvailableStart: 01-29-2025 End: 03-65-9209Ohpghc outpatient visit 25 minutesRain Souza MD Work [...] ([facility])Start: 01-26-2025 End: 39-75-1586ikooevnmekCGRR AICHHOLZNot AvailableStart: 01-26-2025 End: 87-35-8590Pphdvwa encounter Marcela Blas NP Work Phone: noms [...] [facility]); Pulmonary emphysema, unspecified emphysema type ([facility]); Moderate persistent asthma without complication ([facility]); Insomnia; Non-seasonal allergic rhinitis, unspecified trigger; Type 2 diabetes mellitus with unspecified complications ([facility]); Anxiety and depression ; Antibiotic-induced yeast infection; Chronic obstructive pulmonary disease, unspecified (HCC); Hyperlipidemia, unspecified ; Vaginal yeast infection; Morbid (severe) obesity due to excess calories ([facility])Start: 01-06-2025 End: 98-56-3330ruoglllbkfBCJYAKU [facility] Hospitaltart: 12-18-2024 End: 55-80-1687LozhvfBldz Aichholz GAMEPLAY ENGINEER Work Phone: N[facility] CWM FMComment on above:Hyperlipidemia, unspecified ; Tobacco user; Encounter for smoking cessation counselingStart: 12-09-2024 End: 44-11-7709Huecyh Shirlene Blas GAMEPLAY ENGINEER Work Phone: noms CWM FMStart: 12-09-2024 End: 57-26-1561Vwmmtc Shirlene Blas NP Work Phone: [facility] CWM FMStart: 12-09-2024 End: 22-66-7252lamedkekgrHLBT AICCayetanoHOLZNot AvailableStart: 12-09-2024 End: 49-91-4342Tukwcg outpatient visit 25 minutesMckayla Blas GAMEPLAY ENGINEER Work Phone: noms CW FMComment on above:Cellulitis of left lower extremity (Primary Dx); COPD exacerbation (CMS/HCC); Primary hypertension (CMS/HCC); Pulmonary hypertension (CMS/HCC); Morbid (severe) obesity due to excess calories ([facility]/HCC); Type 2 diabetes mellitus with complication, with long-term current use of insulin ([facility]); Anxiety and depression ([facility]); Fever, unspecified fever causeStart: 12-04-2024 End: 69-80-1111Wouxqzafz Result EncounterGeneric External Data ProviderNOMS External Department UnsolicitedStart: 12-04-2024 End: 21-89-7185Hsprdsjiq Result EncounterGeneric External Data ProviderNOTX External Department UnsolicitedStart: 10-27-2024 End: 35-78-7778oaryvxqtmgNYDK AICHHOLZNot AvailableStart: 10-27-2024 End: 58-95-5080Hegwbv outpatient visit 25 minutesMckayla Blas GAMEPLAY ENGINEER Work Phone: n[facility] FMComment on above:Primary hypertension (CMS/HCC) (Primary [...] right leg ([facility])Start: 10-21-2024 End: 28-56-5661OzxcjpStxy Aichdallin GAMEPLAY ENGINEER Work Phone: noms CWM FMComment on above:Chronic obstructive pulmonary disease, unspecifiedStart: 10-08-2024 End: 26-88-4564Alabjbwcy Result EncounterLisa Blas GAMEPLAY ENGINEER Work Phone: noms External Department UnsolicitedStart: 10-08-2024 End: 32-41-5750Imxykzziw Result EncounterLisa Blas GAMEPLAY ENGINEER Work Phone: noms External Department UnsolicitedStart: 10-08-2024 End: 13-88-5899Xysdph outpatient visit 25 Adolfo Souza MD Work [...] of50.0 to 59.9 in adultStart: 10-08-2024 End: 46-89-5609jxedjcwgrvYJCYN F SABBAGHNot AvailableStart: 08-27-2024 End: 13-14-0246Bryqmm outpatient visit 25 minutesMckayla Wan SCHAEFER Work [...] of insulin ([facility]); Tobacco user; Mixed hyperlipidemia ([facility]); Gout, unspecified cause, unspecified chronicity, unspecified site; Vitamin deficiency; Gastro-esophageal reflux disease without esophagitis; Edema, unspecified; Edema; Hyperlipidemia, unspecified ([facility]); Encounter for smoking cessation counseling; Venous ulcer of right leg ([facility]); Antibiotic-induced yeast infectionStart: 08-27-2024 End: 96-43-9978udnoqlrmieDQGLTaj Kendall AvailableStart: 08-27-2024 End: 63-79-1937Fklclbbca Result EncounterGeneric External Data ProviderNOMS External Department UnsolicitedStart: 08-27-2024 End: 48-65-6683Vqmnxdigm Result EncounterGeneric External Data ProviderNOMS External Department UnsolicitedStart: 08-08-2024 End: 09-27-0594uwokzqwhobXVENQKettering Health Miamisburgtart: 07-17-2024 End: 59-17-2380XurkumTnil Aichholz NP Work Phone: noms CWM FMStart: 07-14-2024 End: 90-71-1442Ardiza outpatient visit 25 Heena Blas NP Work Phone: noms CWM FMComment on above:Primary hypertension ([facility]) (Primary Dx); Diabetic polyneuropathy associated with type 2 diabetes mellitus ([facility]); Pulmonary emphysema, unspecified emphysema type ([facility]); Critical limb ischemia of right lower extremity ([facility]); PAD (peripheral artery disease) ([facility]); Gastroesophageal reflux disease, unspecified whether esophagitis present; Bilateral lower extremity edema; Venous ulcer of right leg ([facility]); Type 2 diabetes mellitus with complication, with long-term current use of insulin ([facility]); Tobacco user; Encounter for smoking cessation counseling; Kidney stone; Adrenal mass 1 cm to 4 cm in diameter ([facility]); Radiculopathy, lumbar region; Non-seasonal allergic rhinitis, unspecified trigger; Type 2 diabetes mellitus with unspecified complications ([facility])Start: 07-14-2024 End: 75-61-4544qnavvbzbnoBOGT AICHHOLZNot AvailableStart: 07-05-2024 End: 99-49-0159HwisonKtzw Aichholz SILVANO Work Phone: noms [facility] FMComment on above:Bilateral lower extremity edemaStart: 06-11-2024 End: 62-98-2052xcarbrpuzuDgbuyrd R REGLAFacility:EU SanduskyStart: 06-11-2024 End: 29-06-1037Swzbpzz encounter procedurePanaomy ARAUZ [facility] [place] Start: 05-27-2024 End: 94-46-6070Moyres Jack Souza MD Work Phone: noms ENDOCRINOLOGYStart: 05-27-2024 End: 13-81-9132Jodvypyousif Souza MD Work Phone: noms ENDOCRINOLOGYStart: 05-27-2024 End: 21-31-2354prtzuxyrukKDVDI F SABBAGHNot AvailableStart: 05-27-2024 End: 30-80-0975Upwhnm outpatient visit 25 minutesRain Souza MD Work Phone: noms ENDOCRINOLOGYComment on above:Type 2 diabetes mellitus with hyperglycemia, with long-term current use of insulin (CMS/[facility]) (Primary Dx); Encounter for dietary consultation; Vitamin D deficiency; Primary hypertension (CMS/HCC); Insulin long-term use (CMS/HCC); Hyperlipemia, mixed (CMS/HCC); Microalbuminuria; Class 3 severe obesity due to excess calories with serious comorbidity and body mass index (BMI) of50.0 to 59.9 in adult (CMS/HCC)Start: 05-12-2024 End: 28-10-5259Ufocmgxlj Result EncounterGeneric External Data ProviderNOMS External Department UnsolicitedStart: 05-12-2024 End: 69-84-4418Zetweayeq Result EncounterGeneric External Data ProviderNOMS External Department UnsolicitedStart: 60-29-9393yucdvtxgfuQOIWTILN E SILVIA Facility:EU [place]Start: 04-24-2024 End: 10-82-4613Yqflljrsp Result EncounterGeneric External Data ProviderNOMS External Department UnsolicitedStart: 04-24-2024 End: 95-87-6587Alnxgmdry Result EncounterGeneric External Data ProviderNOMS External Department UnsolicitedStart: 04-14-2024 End: 85-99-3031Cvhhqe flowsheetMckayla Blas GAMEPLAY ENGINEER Work Phone: noms CWM FMStart: 04-14-2024 End: 92-55-5734Sohygv flowsheetMckayla Blas GAMEPLAY ENGINEER Work Phone: noms CWM FMStart: 04-14-2024 End: 54-29-5563Eqpcwj outpatient visit 25 minutesLisa Blas GAMEPLAY ENGINEER Work Phone: noms CWM FMComment on [...] Tobacco user; Hyperpigmentation of skinStart: 04-14-2024 End: 20-72-3392savqlfietzUBHV AICHRAVIZNot AvailableStart: 04-05-2024 End: 38-31-5628SmjchuRcec Aichholz GAMEPLAY ENGINEER Work Phone: noms CWM FMComment on above:Hyperlipidemia, unspecified (CMS/HCC); Bilateral lower extremity edemaVitamin D deficiency, unspecifiedStart: 76-45-8866Msiigzv encounter Mary Ann Souza MD Work Phone: NOMS HealthcareStart: 12-14-2023 End: 76-35-6500Owssoorov Result EncounterLisa Harshadholz GAMEPLAY ENGINEER Work Phone: noms External Department UnsolicitedStart: 12-14-2023 End: 63-80-1286Xgsedksyt Result EncounterLisa Harshadholz GAMEPLAY ENGINEER Work Phone: noms External Department UnsolicitedStart: 08-31-2023 End: 92-97-1659Spouychxk Result EncounterAmy Cari MAYERS Work Phone: noms External Department UnsolicitedStart: 08-31-2023 End: 98-21-2679Rfycybtxh Result EncounterAmy Cari MAYERS Work Phone: noms External Department UnsolicitedStart: 08-17-2023 RefillLisa Patriciaholz GAMEPLAY ENGINEER Work Phone: noms CWM FMComment on above:Vaginal yeast infection (Primary Dx)Start: 86-86-8578CdsmakSaaz Aichholz GAMEPLAY ENGINEER Work Phone: NOEK CWM FMComment on above:Type 2 diabetes mellitus with unspecified complications (CMS/HCC); Edema, unspecified; EdemaStart: 71-56-5988iotpqenhlnJJAGBFCHJTWV LAKSHMIPATHY .Facility:Z7Zpqsl: 12-05-2022 End: 78-51-4195Tflmpljzbl and management of inpatientJESSICA ALONDRA .Facility:H1 Start: 11-23-2022 End: 74-54-2195ykxzuqorjiSTC MCKAYLA AICHHOLZFacility:M4Jrxjv: 11-22-2022 End: 13-44-6045xqygtcrgnpAWK MCKAYLA AICHHOLZFacility:A7Vcuzs: 11-17-2022 End: 68-63-9304snqufvtuupOTPCHCA HALKER .Facility:T9Ujhqo: 11-15-2022 End: 41-75-6907Bjhyhmq encounter procedureJENNIFER E SILVIA [facility] start: 10-05-2022 End: 92-39-5319mlmqtjnsqdNJSAKL DIAB .Facility:D8Dpbfh: 09-21-2022 End: 07-94-3336fjxjjoybzhKHU MCKAYLATaryn BLASFacility:F1Gxlax: 31-05-0266vtsfvynscf COMFORT CULLENFacility:F4Rthkk: 08-24-2022 End: 98-46-4578nfjizdkagsUJ CHAPARRO S M[place] .Facility:Y0Tqwjl: 08-21-2022 End: 83-55-5791irovtbwncfIJMNN D [facility]NEENAHFacility:U7Hswvp: 07-27-2022 End: 22-31-8582hinbtpjmjtTCHC TAMLYN .Facility:L2Xyccx: 07-18-2022 End: 33-84-4149fezwqlozrwOMXK TAMLYN .Facility:S1Qeijd: 07-18-2022 End: 60-34-5253xqzhmjnyzsBXLKP D [facility]–NEENAHFacility:C9Pauur: 07-06-2022 End: 82-73-4215rrrtkfyhxjSHH MCKAYLA WANFacility:D3Iieec: 05-11-2022 End: 30-76-3392xflcutffbqYJHW VALENZUELA .Facility:X5Xbiyi: 04-25-2022 End: 73-93-2368ihhsfegubeCL CHAPARRO S [place] .Facility:I8Vjhho: 04-20-2022 End: 71-01-3567vxeedlindoVKXV VALENZUELA .Facility:F4Juitq: 03-08-2022 End: 98-75-5607ctthjmzgysMdqfm Tico Other [employer] Other Start: 57-71-2674Ruzcet outpatient visit 15 minutes Stephanie QadirFPG NephrologyStart: 03-03-2022 End: 66-78-8883upehlbzpnyQLR MCKAYLA Judicility:Q6Lrsnk: 02-20-2022 End: 73-84-3249uzepnfzncyKxmkc Tico Other [employer] Other Start: 54-83-4129Pgmnyo outpatient new 45 minutesAbdul QadirFPG NephrologyStart: 02-06-2022 End: 52-54-0992Sxmwzii encounter procedureElbert Mahnaz ARAUZ [facility] Wilfredo start: 01-19-2022 End: 04-58-1167alxsyzbiptJQPU SOLIS .Facility:Y3Afsix: 12-24-2021 End: 36-79-8729azikvozbzjYPVCR PARKERFacility:B5Bmzhf: 08-26-2020 End: 36-03-7972Jzkforp encounter procedureVITHAL GABINODGEFacility:UTMCStart: 10-30-2019 End: 77-73-6849Kbuhxmwnf department patient visitDOTaraVista Behavioral Health Centertart: 10-30-2019 End: 72-80-2937Pmvbfheld department patient visitSelect Medical [facility] Emergency DepartmentStart: 26-84-1779Dokljahtufob stateAbdul Tico Other rt [employer] Other Procedures DateProcedureProcedure DetailPerforming ClinicianStart: 73-00-7568EV ECHO DOPPLER COMPLETEGeneric External Data ProviderStart: 88-90-9214Zrsh bld gluc mntr dev cleared fda spec home useAhart Souza MD Work Phone: Start: 28-81-2206GZIML CULTURE 2Generic External Data ProviderStart: 95-31-1226UCTSX CULTURE 1Generic External Data ProviderStart: 74-94-7060Qdfj bld gluc mntr dev cleared fda spec home useRain Souza MD Work Phone: Start: 48-49-6705EYZ UA (CLEAN/CATCH) MICROSCOPIC IF INDICATELisa Aichholz GAMEPLAY ENGINEER Work Phone: Start: 95-70-8190QDR CBC WITH AUTO DIFFGeneric External Data ProviderStart: 91-68-4344Fhrf bld gluc mntr dev cleared fda spec home useRain Souza MD Work Phone: Start: 92-25-9365AW LUMBAR SPINE WO CONGeneric External Data ProviderStart: 03-33-5158VL ABDOMEN PELVIS W CONGeneric External Data ProviderStart: 99-10-8233TIH CREATININEGeneric External Data ProviderStart: 21-58-0124SNTXRMQAV BLOOD PRESSUREGeneric External Data ProviderStart: 25-41-8678AK TOMOSYNTHESIS SCREENING Chyna Blas NP Work Phone: Start: 06-48-5359XcfgptetmyvNyapt Sabbagh MD Work Phone: Start: 17-51-0715HWYTT CULTURE 2Generic External Data ProviderStart: 40-27-1446QWYOZ CULTURE 1Generic External Data ProviderStart: 37-40-6814EYE 12-LEADAmy Cari MAYERS Work Phone: Start: 36-34-4191ZhivbiyikzsZdso Aichholz NP Work Phone: Start: 23-09-1702Csfztvquxtm observation [Identifier] in Cervix by Cyto stainMckayla Blas NP Work Phone: H/O: hysterectomyPatrick Bevii Laparoscopic cholecystectomyPatrick Bevii Operative procedure on footPatrick Bevii Plan of Treatment DateCare ActivityDetailAuthorStart: 02-01-2026 End: 91-31-8907Eejpjky encounter procedureNOMS CWM FMStart: 07-21-2026Medicare Annual Wellness (AWV)Medicare Annual Wellness (AWV)NOMS HealthcareStart: 58-20-6103Uknej screening for proteinDiabetes: Urine Protein ScreeningNOMS HealthcareStart: 64-82-0957Gwaddfcij for malignant neoplasm of colonNOMS HealthcareStart: 03-96-2701Bkrzvksq screeningDiabetes: Retinopathy ScreeningNOMS HealthcareStart: 05-28-2025 End: 72-43-5841Whbowdw encounter procedureNOCOXHEALTH ENDOCRINOLOGYStart: 05-13-2025 Glaucoma screeningDiabetes: Retinopathy ScreeningFreeman Heart InstituteStart: 29-14-2446Rijqmyzvbo A1c measurementDiabetes: Hemoglobin N7ZQSGQFreeman Heart Institute Start: 04-29-2025 End: 50-23-2025Ossyubc encounter procedureNOALLIANCEHE[facility] FMStart: 25-28-7327Rctjbdvjc vaccinationINTERMOUNTAIN [facility]ENTER HealthcareStart: 01-28-2025 End: 31-00-5739Unpyckf encounter /23/2025 10:50 AM EDT Office [facility] [address] [place] [address] Rain Souza MD [address] [place] [address] [facility] ENDOCRINOLOGYStart: 01-26-2025 End: 85-26-1375Zblzutj encounter wevsxafam03/21/2025 6:00 PM EDT Office [facility] [address] [place] [address] Mckayla Blas, GAMEPLAY ENGINEER [address] [place] [address] [facility] FMStart: 07-11-2025Medicare Annual Wellness (AWV) Medicare Annual Wellness (AWV)[facility] HealthcareStart: 64-08-0036Omketlmybf A1c measurementDiabetes: Hemoglobin K0BQWFVFreeman Heart InstituteStart: 12-15-2024 End: 40-39-5462YI Breast - bilateral ScreeningBilateral screening mammogram Imaging Routine Encounter for screening mammogram for malignant neoplasm of breast Expected: 12/15/2024 (Approximate), Expires: 12/27/2025[facility] Work Phone: Comment on above:Expected: 12/15/2024 (Approximate), Expires: 12/27/2025Start: 00-57-3268Xagwaltfk for malignant neoplasm of breast MammogramFreeman Heart InstituteStart: 53-82-6325Gsydr screening for proteinDiabetes: Urine Protein ScreeningINTERMOUNTAIN MEDICAL CENTER HealthcareStart: 10-27-2024 End: 80-16-6173Xllfdji encounter kdahfiwdj07/21/2025 2:00 PM EDT Office Visit [facility] FM [address] [place] [address] Mckayla Blas, GAMEPLAY ENGINEER [address] [place] [address] [facility] FMStart: 10-08-2024 End: 89-31-5476Dehaiqk encounter ajkjiidfk42/02/2025 11:20 AM EDT Office Visit [facility] [address] [place] [address] Rain Souza MD [address] [place] [address] [facility]Start: 08-27-2024 End: 10-81-9848Jylbtcj encounter tjajozxtu41/19/2025 5:30 PM EST Office Visit [facility] [address] [place] [address] Mckayla Blas, SILVANO [address] [place] [id number] [facility] FMStart: 08-27-2024 End: [id number]-rqkqzonwucamln D3 [Mass/volume] in Serum or PlasmaVitamin D 25 hydroxy Lab Routine Vitamin deficiency Expected: 08/27/2024 (Approximate), Expires: 08/27/2025NOTX HealthcareComment on above:Expected: 08/27/2024 (Approximate), Expires: 08/27/2025Start: 34-10-1615Vwvqqewztd A1c measurement Diabetes: Hemoglobin N3HSLYKMineral [facility] CenterStart: 08-27-2024 End: 31-04-7800Drusnzq function 2000 panel - Serum or PlasmaHepatic function panel Lab Routine Hyperlipidemia, unspecified ([facility]/HCC) Expected: 08/27/2024 (Approximate), Expires: 08/27/2025[facility] HealthcareComment on above:Expected: 08/27/2024 (Approximate), Expires: 08/27/2025Start: 08-27-2024 End: 64-63-0167Uoxle 1996 panel - Serum or PlasmaLipid panel Lab Routine Mixed hyperlipidemia ([facility]CC) Expected: 08/27/2024 (Approximate), Expires:08/27/2025 [facility] Healthcare Work Phone: Comment on above:Expected: 08/27/2024 (Approximate), Expires: 08/27/2025Start: 08-27-2024 End: 73-62-1964Phtojvzivxzm/Creatinine panel in random UrineMicroalbumin / creatinine, urine ratio Lab Routine Primary hypertension ([facility]) Type 2 diabetes mellitus with complication, with long-term current use of insulin ([facility]) Expected: 08/27/2024 (Approximate), Expires: 08/27/2025[facility] Healthcare Comment on above:Expected: 08/27/2024 (Approximate), Expires: 08/27/2025Start: 08-27-2024 End: 97-46-4115Muiux [Mass/volume] in Serum or PlasmaUric acid Lab Routine Gout, unspecified cause, unspecified chronicity, unspecified site Expected: (Approximate), Expires: 08/27/2025[facility] HealthcareComment on above: Expected: 08/27/2024 (Approximate), Expires: 08/27/2025Start: 08-27-2024 End: 93-20-0904Pedsyybdvd complete panel - UrineUrinalysis with reflex microscopic (clean catch) Lab Routine Primary hypertension ([facility]) Type 2 d iabetes mellitus with complication, with long-term current use of insulin ([facility]) Tobacco user Gout, unspecified cause, unspecified chronicity, unspecified site Expected: 08/27/2024 (Approximate), Expires: 08/27/2025[facility] HealthcareComment on above:Expected: 08/27/2024 (Approximate), Expires: 08/27/2025Start: 08-26-2024 End: 06-92-0829Aqnojmh encounter dhceqqvrg02/18/2025 10:30 AM EST Office Visit [facility] [address] [place] [address] Rain Souza MD [address] [place] [address] [facility]Start: 07-14-2024 End: 78-92-4407Cyhpmmh encounter ziycjpkkv67/06/2025 6:30 PM EST Office Visit [facility] [address] [place] [address] Mckayla Blas NP [address] [place] [address] [facility] FMStart: 07-14-2024 End: 47-99-9522Rvolujr encounter yyddhmmpb79/06/2025 10:10 AM EST Office Visit [facility] [address] [place] [address] Rain Souza MD [address] [place] [address] [facility]OCRINOLOGYStart: 77-65-9648Sdednofcz vaccinationInfluenza Vaccine (#1)[facility] HealthcareComment on above:Postponed from 03/09/2024 (Patient Refused)Start: 05-27-2024 End: 90-83-1994Tbvlmki encounter fyvufjrwt56/19/2024 9:50 AM EST Office Visit [facility] [address] [place] [phone] Rain Souza MD [address] [place] [address] [facility]OLOGYStart: 73-84-5719Wncwnzuzjy A1c measurementDiabetes: Hemoglobin I0AIHGC HealthcareStart: 05-15-2024 End: 89-62-7485Exddn gjudmohxyyh79/07/2024 Abstract [facility] [address] [place] [address] Rain Souza MD [address] [place] [address] [facility]Start: 05-15-2024 End: 91-43-3173Tgswlct encounter lbbwokmcr48/07/2024 11:20 AM EST Office Visit [facility] [address] [place] [address] Rain Souza MD [address] [place] [address] [facility] ENDOCRINOLOGYStart: 04-17-2024 End: 19-40-4727Rjqjeyz encounter brvoafkgc51/10/2024 3:40 PM EDT Office Visit [facility] [address] [place] [address] Mckayla Blas, GAMEPLAY ENGINEER [address] [place] [address] [facility] FMStart: 04-14-2024 End: 94-89-1574Wdlffty encounter umypxunsr03/07/2024 11:00 AM EDT Office Visit [facility] [address] [place] [address] Mckayla Blas, GAMEPLAY ENGINEER [address] [place] [address] ArrivedNOMS CW FMComment on above:ArrivedStart: 03-09-2024 Influenza vaccinationInfluenza Vaccine (#1)[facility] HealthcareStart: 02-19-2024 Hemoglobin A1c measurementDiabetes: Hemoglobin F6HDWHY HealthcareStart: 06-42-9193Wigxy screening for proteinDiabetes: Urine Protein ScreeningNOTX HealthcareStart: 28-56-9249Djcijibnq for malignant neoplasm of breastMammogram [facility] HealthcareStart: 10-15-2023 End: 94-00-6628Ebuommz encounter mzwxsnaqw11/08/2024 4:30 PM EDT Office Visit [facility] [address] [address] Mckayla Blas, GAMEPLAY ENGINEER [address] [place] [address] [facility] FMStart: 33-31-0371Uzyshgdkum A1c measurement Diabetes: Hemoglobin L1KFRXF HealthcareStart: 50-37-3220Ininkzqz screening Diabetes: Retinopathy ScreeningNOTX HealthcareStart: 60-91-9512Ghynesmwf vaccinationFlu vaccine (Season Ended)[facility]: 10-07-2018 Screening for malignant neoplasm of cervixNOTX HealthcareStart: 44-01-4615Ankdg panelLipid screenMagruder Memorial Hospital: 24-67-7651Fgprzowzt for malignant neoplasm of cervixHPV/CotestNOTX HealthcareStart: 13-40-4638Atcliudfq for malignant neoplasm of cervixCervical cancer [facility]: 22-69-6016MOaF/Tdap/Td vaccine (1 - Tdap)DTaP/Tdap/Td vaccine (1 - Tdap)[facility]: 69-92-6374QJV screeningHIV [facility]: 02-17-1971Medicare Annual Wellness (AWV)Medicare Annual Wellness (AWV)[facility] HealthcareStart: 34-77-4559Xganqxrcq for malignant neoplasm of colonNOMS HealthcareBLOOD CULTURE 1BLOOD CULTURE 1 Lab Routine 12/04/2024 4:44 PM EDTNOMS HealthcareBLOOD CULTURE 2BLOOD CULTURE 2 Lab Routine 12/04/2024 5:28 PM EDTNOTX Healthcare Immunizations Immunization DateImmunizationNotesCare DmxmrhfzBaijlvcd70-80-8885lclbulvwf, injectable, quadrivalent, contains preservativeMckayla Blas GAMEPLAY ENGINEER Work Phone: [facility]OM[facility] CenterIhdokbyoul38-28-2016guuruytdv virus vaccine, unspecified formulationRain Souza MD Work Phone: [facility]01-11-2022SARS-CoV-2 (COVID-19) mRNA BNT-162b2 vaxJENNIFER SILVIA [facility]04-22-2021SARS-CoV-2 (COVID-19) mRNA BNT-162b2 vaxJENNIFER SILVIA [facility]04-02-2021SARS-CoV-2 (COVID-19) mRNA BNT-162b2 vaxJENNIFER SILVIA [facility]10-09-2017influenza virus vaccine, H5N1, A/ (national stockpile)Mckayla Blas GAMEPLAY ENGINEER Work Phone: [facility] InstituteQioqnacmzc97-06-2224btsxxwjuf virus vaccine, unspecified formulationRain Souza MD Work Phone: [facility] CenterDrrptsqlni00-83-0540spwujccmr, unspecified formulationPabaptist health paducahk ARAUZ [facility] [place] 928990-09-2017pneumococcal polysaccharide vaccine, 23 valMunira Souza MD Work Phone: [facility] Dyzyagrqxh33-67-6414xamervden virus vaccine, H5N1, A/ (national stockpile)Mckayla Blas GAMEPLAY ENGINEER Work Phone: noMineral Area [facility] Medical CenterKdltzgaosb43-30-4457bexrzfjop virus vaccine, unspecified formulationRain Souza MD Work Phone: noMineral Area Regional Medical CenterWubqpmirdr95-92-6076jaqefxrpe, unspecified formulationPatrick ARAUZ [facility]10-25-2013influenza virus vaccine, whole virusRain Souza MD Work Phone: [facility] CenterUuskfbsptn34-48-5728aeerqulwi, injectable, quadrivalent, contains preservativeLisa Aichholz GAMEPLAY ENGINEER Work Phone: [facility] InstituteLnjhvcqusq85-33-3437zhxvyrhbu, wholePatrick ARAUZ [facility]07-24-1998measles, mumps and rubella virus vaccineRain Souza MD Work Phone: [facility] Healthcare Payers DatePayer CategoryPayerPolicy [id number] 2024Medicare (Managed Care)[id number] Health [id number]78Qstzoog [id number] 2019[place] [id number] 2018-Present [phone] [address] [place] [address]Medicaid [id number] 2013Medicare [id number] 2.16.840.1.320183.3.57[id number] 2.16.840.1.003702.3.57[id number] 2.16.840.1.813655.3.57[id number] 2..840.1.524120.3.57[id number] 2..840.1.796524.3.57[id number] 2.840.1.474564.3.57[id number] 2.840.1.609240.3.579.2.04469-01-8305Qckmioa1616240 2.840.1.447259.3.579.2.60779-23-4505Cvmzezw1128163 2.0.1.522640.3.57[id number] 2.840.1.168416.3.579.2.84173-21-4749Xhbegqa7421739 2.840.1.713386.3.579.2.36081-62-4891Ddxyobw1622895 2.840.1.040454.3.579.2.75740-88-7684Lefcnei2660039 2.840.1.089586.3.579.2.92667-01-4065Nypfaff4882387 2.840.1.103499.3.579.2.03512-28-9229Styqvvs5634075 2.840.1.873334.3.579.2.76671-17-3116Jefwqds3994323 2.840.1.844755.3.579.2.36758-19-0553Fnwvhfw4162405 2.840.1.970546.3.579.2.52783-56-3223Csgfxtq0263539 2.16.840.1.080897.3.579.2.04479-88-3581Zvxlrue8616775 2.0.1.129285.3.579.2.09761-81-1051Rshfpxe0070285 2.840.1.189255.3.579.2.88790-15-7398Vhkcpto5612472 2.840.1.381875.3.579.2.10678-46-5673Czhrfew4752860 2.0.1.368574.3.579.2.62407-61-2641Posibef8448315 2..1.334942.3.579.2.86491-49-0777Lkqctoo77138822 2..1.736463.3.579.2.976397-70-6611Iuojrnt05924485 2..1.761807.3.579.2.574551-21-2610Qgdlfpf68546244 2..1.969425.3.579.2.207896-06-9125Allvbpx9011705 2..1.033512.3.579.2.000626-70-3006Jpfjciq3887378 2..1.414636.3.579.2.597943-76-2022Ngoiaoe7616925 2..1.093703.3.579.2.043484-61-8085Nktwlun2556086 2..1.444408.3.579.2.341369-49-8642Nbmcswl4674322 2.0.1.555665.3.579.2.688701-33-0187Jtbdppy5155110 2.0.1.681308.3.579.2.896703-82-0190Qjgjwcs90792280 2.16.840.1.987206.3.579.2.53336-59-9785Yjmilrm17630467 2.16.840.1.395495.3.579.2.21813-50-6029Ngchork902029641 2.16.840.1.789374.3.579.2.54660-63-7791Vrcvdra335215005 2.16.840.1.570766.3.579.2.38636-01-3941Gyituzw307156255 2.16.840.1.545931.3.579.2.74061-42-7115Gnehhor100036923 2.16.840.1.428793.3.579.2.39499-59-8752Msecfzd068813861 2.840.1.227174.3.579.2.30271-42-0097Ccuelwc291447799 2.16.840.1.141725.3.579.2.17332-69-3538Eldtlsz383544383 2.16.840.1.753631.3.579.2.80642-24-1632Csgfbec886658067 2.16.840.1.314032.3.579.2.80297-55-5533Pvundlq432730463 2.840.1.289609.3.579.2.37517-33-8843Zepxett082185239 2.16.840.1.643571.3.579.2.99798-69-6326Yngjvgm186424431 2.16840.1.278982.3.579.2.196 [id number] 1960Private Health [id number] 2.16.840.1.379528.19 [id number] [id number] Hospital for the Chronically [id number]-4923-3av99024hlufChonvfcHyihoqo Auto/[id number] 291w7060-7k5y-0hm7-0716-o87f7t9nhr40 Social History DateTypeDetailFacilityStart: 02-17-2014 End: 52-73-6602Qaibwzg smoking status NHISCurrent every day smokerMagruder Memorial Hospital: 58-90-4892Ipasade of tobacco useCigarette SmokerMag[facility]uder Memorial Hospital: 02-17-2014 End: 04-99-0267Vftwqcvevh smoked current (pack per day) - ReportedMagruder Memorial Hospital: 80-86-1484Puebokw intakeCurrent drinker of alcohol (finding)[facility]: 98-74-8899Xnrmoee CommentRareMWVUMedicine Barnesville Hospital: 63-83-1834Qyc Assigned At BirthNot on fileColonial Heights, KYExposure to SARS-CoV-2 (event)Unable to assessCherrington Hospitalart: 99-95-8260Uaqgvgo smoking statusSmoker (finding)[facility] start: 07-10-2023 End: 60-83-3368Aoj Assigned At BirthFemaleExec[facility]rology [facility] start: 11-15-2022 End: 39-04-0014Sxuylms smoking statusHeavy tobacco smoker (finding)[facility] Andersontart: 07-10-2023 End: 65-18-7161Vvtyjgn use and exposureSmokeless tobacco non-userNOMS Healthcare Start: 07-10-2023 End: 34-66-5127Ujzsvpx intakeLifetime non-drinker (finding)[facility] HealthcareWithin the last year, have you been afraid of your partner or ex-partner?NoNOMS HealthcareDo you belong to any clubs or organizations such as buddhist groups, unions, fraternal [...] drinks on 1 occasion?Less than monthlyNOMS HealthcareStart: 23-91-3460Xyj hard is it for you to pay [...] from your doctor or pharmacy [SILS]RarelyNOMS HealthcareSexFemale (finding)[facility] Start: 96-16-1450Ttt Assigned At [facility]N [facility] HospitalNEGATED: Highlighted [facility] Medical Equipment Procedure CodeEquipment CodeEquipment Original TextEquipment IdentifierDates [id number]: 79-42-3287SLK TO TEST BLOOD SUGAR 4 TIMES [id number]: 07-07-2024 Functional Status AlprVpakhanuwgDrxggxIrvttoyi70-11-8679Pgiqldk Health Questionnaire 2 item (PHQ- 2) [Reported][facility] InstituteXowfosmiio90-22-7084Dxzbabf falling or staying asleep, or sleeping too muchNot at all 01/26/2025 4:13 PM EDT Mychart, Generic Not at all [facility] InstituteZpqhpccsbp62-14-6827Egeozfs tired or having little energyNot at all 01/26/2025 4:13 PM EDT Mychart, Generic Not at [facility] HospitalYsiduiyufz94-85-5626Yldk appetite or overeatingNot at all 01/26/2025 4:13 PM EDT Mychart, Generic Not at [facility] HospitalLufdfhoenw51-05-1435Djdnruj bad about yourself-or that you are a failure or have let yourself or your family downNot at all 01/26/2025 4:13 PM EDT Mychart, Generic Not at [facility] HospitalXlveqkzasl31-09-2771Narzcko concentrating on things, such as reading the newspaper or watching televisionNot at all 01/26/2025 4:13 PM EDT Mychart, Generic Not at [facility] HospitalCywafqfocq85-37-7095 Moving or speaking so slowly that other people could have noticed. Or the opposite - being so fidgety or restless that you have been moving around a lot more than usualNot at all 01/26/2025 4:13 PM EDT Mychart, Generic Not at [facility] HospitalRxxflybucc11-50-9159Qmvnfvul that you would be better off , or of hurting yourself in some wayNot at all 01/26/2025 4:13 PM EDT Mychart, Generic Not at [facility] HospitalKtjpwqvuob39-36-0969Hpifk score [AUDIT-C]1 08/26/2024 6:13 PM EST Mychart, GenericFreeman Heart InstituteFtiybidslh58-72-9199Gas often do you have a drink containing alcohol?Monthly or less 08/26/2024 6:13 PM EST Mychart, Generic Monthly or lessFreeman Heart InstituteCwkqslgzyl56-78-8724Bos many standard drinks containing alcohol do you have on a typical day?1 or 2 08/26/2024 6:13 PM EST Mychart, Generic 1 or 2NOMS Dybvaskpjf18-62-0942Voh often do you have 6 or more drinks on 1 occasion?Never 08/26/2024 6:13 PM EST Mychart, Generic [facility] 31-11-0929Nwqpggxabt StatusN/AExec[facility]rology of [facility]07-11-2024How difficult have these problems made it for you to do your work, take care of things at home, or get along with other people?Not difficult at all 01/17/2024 10:08 AM Marilyn Dunbar MA Not difficult at allFreeman Heart InstituteBsqxjjxdlx41-97-1453Hvpobqb Health Questionnaire 2 item (PHQ-2) [Reported][facility] InstituteSwznhffkoi26-97-4861Kadxckz Health Questionnaire 2 item (PHQ-2) [Reported][facility] InstituteRubausaeke25-71-5865Txhzbvamiw StatusN/AExec[facility]08-01-2022Functional StatusN/AExec[facility] Clinical Notes 01-19-2022 to 04-06-2025 Note Date & GeihRrdrDvdpxryx27-65-3885 Evaluation note* Diagnosis Onset Date Resolution Status [...] use ofacuteOctober 2024 5:50pmVenous insufficiencyacuteOctober 2024 5:50pm [facility] Work Phone: [phone] NotePlease let her know her ECHO showed some improvement in the left side wall thickness, it was severely enlarged, now it is moderate. Important for good BP control to continue to improve this. Everything else looks good. Follow-up as planned in 6 months. Thanks![facility]07-24-2025 History of Present illness Narrative* Rain [...] 96, on lantus 58 units bid, lispro 7-75-71gmarh plus ISS, Trulicity 4.5 mg weekly. meter give us error during download IM 03/2022 follow up visit on 03/14/2022, A1c in the office 9.4, bg 142, on lantus 58 units bid, lispro 0-72-27jrxax plus ISS, Trulicity 4.5 mg weekly. lab [...] 25 mg, Oral, 2 times daily HYDROcodone-acetaminophen (Thorofare) 5-325 MG tablet 1 tablet, 3 times [...] Anxiety and depression 07/10/2023 Asthma ([facility]) 07/10/2023 Body mass index (BMI) 50.0-59.9, adult ([facility] Cellulitis of left lower extremity Cervical cancer ([facility]) 09/17/2023 Chronic pain of both knees 09/17/2023 COPD (chronic obstructive pulmonary disease) ([facility]) 07/10/2023 COPD exacerbation ([facility]) 09/17/2023 Decreased functional mobility 09/17/2023 Diabetic neuropathy ([facility]) 07/10/2023 Dietary counseling and surveillance Edema 07/10/2023 Elevated sed rate Elevated WBC count Essential (primary) hypertension GERD (gastroesophageal reflux disease) 09/17/2023 Hyperlipidemia 09/17/2023 Hypertension 07/10/2023 Insomnia 09/17/2023 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 attack controller (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) use of insulin ([facility]) Lower extremity edema 09/17/2023 Mixed hyperlipidemia Morbid (severe) obesity due to excess calories ([facility]) Obstructive sleep apnea 07/10/2023 PAD (peripheral artery disease) 09/17/2023 Pancreatitis ([facility]) 09/17/2023 Pneumonia 09/17/2023 Proteinuria, unspecified Pulmonary hypertension ([facility]) 09/17/2023 Radiculopathy, lumbar region 09/17/2023 Tobacco user [...] current use of insulin ([facility]) - POCT glycosylated hemoglobin (Hb A1C) docked [...] D deficiency Primary hypertension Insulin long-term use ([facility]) Hyperlipemia, mixed Microalbuminuria Class 3 severe obesity due to excess calories with serious comorbidity and body mass index (BMI) of50.0 to 59.9 in adult ([facility] Diet and exercise reviewed with the patient Follow up in about 4 months (around 06/01/2025). 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 * Mckayla Blas NP [...] 25 mg, Oral, 2 times daily HYDROcodone-acetaminophen (Thorofare) 5-325 MG tablet 1 tablet, 3 times [...] Anxiety and depression 07/10/2023 Asthma ([facility]) 07/10/2023 Body mass index (BMI) 50.0-59.9, adult ([facility]) Cellulitis of left lower extremity Cervical cancer ([facility]) 09/17/2023 Chronic pain of both knees 09/17/2023 COPD (chronic obstructive pulmonary disease) ([facility]) 07/10/2023 COPD exacerbation ([facility]) 09/17/2023 Decreased functional mobility 09/17/2023 Diabetic neuropathy ([facility]) 07/10/2023 Dietary counseling and surveillance Edema 07/10/2023 Elevated sed rate Elevated WBC count Essential (primary) hypertension GERD (gastroesophageal reflux disease) 09/17/2023 Hyperlipidemia 09/17/2023 Hypertension 07/10/2023 Insomnia 09/17/2023 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 attack controller (current) use of insulin ([facility]) Lower extremity edema 09/17/2023 Mixed hyperlipidemia Morbid (severe) obesity due to excess calories ([facility]) Obstructive sleep apnea 07/10/2023 PAD (peripheral artery disease) 09/17/2023 Pancreatitis ([facility]) 09/17/2023 Pneumonia 09/17/2023 Proteinuria, unspecified Pulmonary hypertension ([facility]) 09/17/2023 Radiculopathy, lumbar region 09/17/2023 Tobacco user [...] COPD (chronic obstructive pulmonary disease) ([facility]) Follows with verena Needs smoking cessation Current meds: duoneb, albuterol, daliresp, Asthma ([facility]) Current meds: albuterol, duoneb, 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 Hypertension Please check blood [...] current use of insulin ([facility]) Check blood sugars daily, notify if <70 [...] excess calories ([facility]) Discussed with patient their BMI (actual, verses [...] a yearly basis documented in this encounterFreeman Heart InstituteKdvmsoednb06-93-2730 Instructions* Patient Instructions* Mckayla Blas NP - 01/26/2025 6:00 PM EDT Please call the [facility] to schedule your mammogram: [phone]- ext [phone] documented in this encounterFreeman Heart InstituteKzymtnaodt55-23-2660 NoteCardiovascular Medicine [facility] SUBJECTIVE Chief Complaint Patient presents [...] with ulcer ([facility]) 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 attack controller current use of inhaled steroid Vitamin D deficiency, unspecified Vitamin deficiency Past Medical History: Diagnosis Date COPD (chronic obstructive pulmonary disease) ([facility]) Diabetes mellitus ([facility]) Hyperlipidemia Hypertension Sleep apnea Family History Problem [...] , Rfl: ergocalciferol (Vitamin D-2) 1.25 MG (88127 Units) capsule, Take 1.25 mg by mouth., [...] and at bedtime., Disp: , Rfl: HYDROcodone-acetaminophen (Thorofare) 5-325 mg tablet, TAKE 1 TABLET BY MOUTH THREE TIMES A DAY NEEDED FOR PAIN MUST LAST 30 DAYS, Disp: , Rfl: insulin aspart (NovoLOG) 100 unit/mL (3 mL) injection pen, Novolog Flexpen U-100 Insulin aspart 100 unit/mL (3 mL) subcutaneous, Disp: , Rfl: insulin glargine (Lantus Solostar U-100 Insulin) 100 unit/mL (3 mL) injection pen (more content not included)...[facility]07-01-2025 NotePatient is here today for a [...] and weight gain. Cardiovascular: Positive for leg swelling.[facility] 12-09-2024 History of Present illness Narrative* [...] 25 mg, Oral, 2 times daily HYDROcodone-acetaminophen (Thorofare) 5-325 MG tablet 1 tablet, 3 times [...] and depression ([facility]) 07/10/2023 Asthma 07/10/2023 Body mass index (BMI) 50.0-59.9, adult ([facility]) Cellulitis of left lower extremity Cervical cancer ([facility]) 09/17/2023 Chronic pain of both knees 09/17/2023 COPD (chronic obstructive pulmonary disease) ([facility]) 07/10/2023 COPD exacerbation ([facility]) 09/17/2023 Decreased functional mobility 09/17/2023 Diabetic [place] 07/10/2023 Dietary counseling and surveillance Edema 07/10/2023 Elevated sed rate Elevated WBC count Essential (primary) hypertension [place] GERD (gastroesophageal reflux disease) 09/17/2023 Hyperlipidemia ([facility] 09/17/2023 Hypertension ([facility] 07/10/2023 Insomnia 09/17/2023 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 attack controller (current) use of insulin ([facility] Lower extremity edema 09/17/2023 Mixed hyperlipidemia ([facility] Morbid (severe) obesity due to excess calories ([facility] Obstructive sleep apnea 07/10/2023 PAD (peripheral artery disease) [facility] [facility] 09/17/2023 Pancreatitis 09/17/2023 Pneumonia 09/17/2023 Proteinuria, unspecified Pulmonary [place] 09/17/2023 Radiculopathy, lumbar region 09/17/2023 Tobacco user 09/17/2023 Type 2 diabetes mellitus with complication, with long-term current use of insulin [place] 07/10/2023 Unilateral primary osteoarthritis, right hip 09/17/2023 [...] Visit Hypertension ([facility]) Please check blood pressure daily and record DASH diet Limit caffeine Take medication as directed Contact office if chest pain, pressure, dizziness, shortness of breath, swelling legs Recommend slow position changes Current meds: hydralazine, lisinopril, Type 2 diabetes mellitus with complication, with long-term current use of insulin ([facility]) Check blood sugars daily, notify if <70 [...] and depression ([facility]) Current meds: elavil, duloxtine, COPD exacerbation ([facility]) Recent ER visit for unresponsiveness , found [...] excess calories ([facility]) Discussed with patient their BMI (actual, verses [...] and depression ([facility]) Current meds: elavil, duloxtine, * Mckayla Blas NP - 12/09/2024 7:24 AM EDTAssociated Problem(s): Type 2 diabetes mellitus with complication, with long-term current use of insulin ([facility]) Check blood sugars daily, notify if <70 [...] wearing this today documented in this encounterFreeman Heart [id number] Instructions* Patient Instructions* Mckayla Blas NP - 12/09/2024 10:00 AM EDT Keep appt with wound care today Keep fu with me, sooner if needed documented in this encounterFreeman Heart [id number] History of Present illness Narrative* Mckayla Blas [...] artery disease) ([facility]) Asa, statin Quit smoking BP and DM [...] 25 mg, Oral, 2 times daily HYDROcodone-acetaminophen (Thorofare) 5-325 MG tablet 1 tablet, 3 times [...] and depression ([facility]) 07/10/2023 Asthma 07/10/2023 Body mass index (BMI) 50.0-59.9, adult [place] Cellulitis of left lower extremity Cervical cancer ([facility]) 09/17/2023 Chronic pain of both knees 09/17/2023 COPD (chronic obstructive pulmonary disease) [place] 07/10/2023 COPD exacerbation [place] 09/17/2023 Decreased functional mobility 09/17/2023 Diabetic neuropathy ([facility]) 07/10/2023 Dietary counseling and surveillance Edema 07/10/2023 Elevated sed rate Elevated WBC count Essential (primary) hypertension ([facility]) GERD (gastroesophageal reflux disease) 09/17/2023 Hyperlipidemia ([facility]) 09/17/2023 Hypertension ([facility]) 07/10/2023 Insomnia 09/17/2023 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 attack controller (current) use of insulin ([facility]) Lower extremity edema 09/17/2023 Mixed hyperlipidemia [place] Morbid (severe) obesity due to excess calories [place] Obstructive sleep apnea 07/10/2023 PAD (peripheral artery disease) ([facility] 09/17/2023 Pancreatitis 09/17/2023 Pneumonia 09/17/2023 Proteinuria, unspecified Pulmonary hypertension ([facility]) 09/17/2023 Radiculopathy, lumbar region 09/17/2023 Tobacco user 09/17/2023 Type 2 diabetes mellitus with complication, with long-term current use of insulin [place] 07/10/2023 Unilateral primary osteoarthritis, right hip 09/17/2023 [...] Diabetic neuropathy ([facility]) - Primary Continue with cintia hudson mgmt is prescribing OARRS reviewed Fu in 3 months Goal: tighter glucose control, this has been improving, latest A1c is 7.4%!!! Hypertension ([facility]) Please check blood pressure daily and record DASH diet Limit caffeine Take medication as directed Contact office if chest pain, pressure, dizziness, shortness of breath, swelling legs Recommend slow position changes Current meds: hydralazine, lisinopril, Relevant Medications hydrALAZINE (Apresoline) 25 MG tablet lisinopril 20 MG tablet Type 2 diabetes mellitus with complication, with long-term current use of insulin ([facility]) Check blood sugars daily, notify if <70 [...] obesity due to excess calories ([facility]) Discussed with patient their BMI (actual, verses [...] Relevant Medications ergocalciferol (Vitamin D2) 1.25 MG (64018 UT) capsule Gastro-esophageal reflux disease without esophagitis [...] latest A1c is 7.4%!!! documented in this [facility]04-21-2025 Instructions* Patient Instructions* Mckayla Blas NP - 10/27/2024 2:00 PM EDT No dose changes in meds You will be due for mammogram I will send order to [facility], they should call you to schedule If no call, please call [phone] ext [phone] documented in this encounterFreeman Heart [id number] History of Present illness Narrative* Rain Souza [...] 96, on lantus 58 units bid, lispro 3-40-65yadbw plus ISS, Trulicity 4.5 mg weekly. meter give us error during download IM 03/2022 follow up visit on 03/14/2022, A1c in the office 9.4, bg 142, on lantus 58 units bid, lispro 5-03-73bnjml plus ISS, Trulicity 4.5 mg weekly. lab [...] or chew. ergocalciferol (Vitamin D2) 1.25 MG (89671 UT) capsule TAKE 1 CAPSULE BY MOUTH [...] 25 mg, Oral, 2 times daily HYDROcodone-acetaminophen (Thorofare) 5-325 MG tablet 1 tablet, 3 times [...] and depression ([facility]) 07/10/2023 Asthma ([facility]) 07/10/2023 Body mass index (BMI) 50.0-59.9, adult ([facility]) Cellulitis of left lower extremity Cervical cancer ([facility]) 09/17/2023 Chronic pain of both knees 09/17/2023 COPD (chronic obstructive pulmonary disease) 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 controller (current) use of insulin [place] Lower extremity edema 09/17/2023 Mixed hyperlipidemia [place] Morbid (severe) obesity due to excess calories [place] Obstructive sleep apnea 07/10/2023 PAD (peripheral artery disease) ([facility] 09/17/2023 Pancreatitis 09/17/2023 Pneumonia 09/17/2023 Proteinuria, unspecified Pulmonary hypertension [place] 09/17/2023 Radiculopathy, lumbar region 09/17/2023 Tobacco user 09/17/2023 Type 2 diabetes mellitus with complication, with long-term current use of insulin [place] 07/10/2023 Unilateral primary osteoarthritis, right hip 09/17/2023 [...] of insulin ([facility]) - POCT glucose manually resulted - POCT [...] months (around 02/07/2025). documented in this encounterFreeman Heart [id number] History of Present illness Narrative* Mckayla Blas [...] or chew. ergocalciferol (Vitamin D2) 1.25 MG (14235 UT) capsule TAKE 1 CAPSULE BY MOUTH [...] 25 mg, Oral, 2 times daily HYDROcodone-acetaminophen (Thorofare) 5-325 MG tablet 1 tablet, 3 times [...] and depression ([facility]) 07/10/2023 Asthma ([facility]) 07/10/2023 Body mass index (BMI) 50.0-59.9, adult ([facility]) Cellulitis of left lower extremity Cervical cancer ([facility]) 09/17/2023 Chronic pain of both knees 09/17/2023 COPD (chronic obstructive pulmonary disease) ([facility]) 07/10/2023 COPD exacerbation ([facility]) 09/17/2023 Decreased functional mobility 09/17/2023 Diabetic neuropathy ([facility]) 07/10/2023 Dietary counseling and surveillance Edema 07/10/2023 Elevated sed rate Elevated WBC count Essential (primary) hypertension ([facility]) GERD (gastroesophageal reflux disease) 09/17/2023 Hyperlipidemia ([facility]) 09/17/2023 Hypertension ([facility]) 07/10/2023 Insomnia 09/17/2023 senior care (current) use of insulin ([facility]) Lower extremity edema 09/17/2023 Mixed hyperlipidemia ([facility]) Morbid (severe) obesity due to excess calories ([facility]) Obstructive sleep apnea 07/10/2023 PAD (peripheral artery disease) ([facility]) 09/17/2023 Pancreatitis 09/17/2023 Pneumonia 09/17/2023 Proteinuria, unspecified Pulmonary hypertension ([facility]) 09/17/2023 Radiculopathy, lumbar region 09/17/2023 Tobacco user 09/17/2023 Type 2 diabetes mellitus with complication, with long-term current use of insulin ([facility]) 07/10/2023 Unilateral primary osteoarthritis, right hip 09/17/2023 [...] Diabetic neuropathy ([facility]) Continue with cintia hudson is prescribing OARRS reviewed Fu in 3 months Goal: tighter glucose control Hypertension ([facility]) Please check blood pressure daily and record [...] of insulin ([facility]) Check blood sugars daily, notify if <70 [...] Venous ulcer of right leg ([facility]) Continue with wound for treatment Had recent [...] excess calories ([facility]) Discussed with patient their BMI (actual, verses [...] DM Body mass index (BMI) 50.0-59.9, adult ([facility]) Chronic diastolic heart failure (CMS/HCC) Current meds; [...] of insulin ([facility]) Check blood sugars daily, notify if <70 [...] excess calories ([facility]) Discussed with patient their BMI (actual, verses [...] changes Current meds: hydralazine, lisinopril, * Mckayla lBas NP - 08/27/2024 7:32 AM ESTAssociated Problem(s): Chronic diastolic heart failure ([facility]) Current meds; asa, farxiga, lasix, hydralazine, lisinopril, Follows with cardilogy Reviewed 08/02 notes * Mckayla Blas NP - 08/27/2024 7:31 AM ESTAssociated Problem(s): COPD (chronic obstructive pulmonary disease) ([facility]) Follows with verena Needs smoking cessation Current meds: duoneb, albuterol, daliresp, * Mckayla Blas NP - 08/27/2024 7:30 AM ESTAssociated Problem(s): Asthma ([facility]) Current meds: albuterol, duoneb, 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 * Mckayla Blas NP [...] tighter glucose control documented in this encounterFreeman Heart [id number] NoteUT Cardiology - [facility] Subjective Mitzi Macias is [...] pulmonary disease) ([facility]) Diabetes mellitus ([facility]) Hyperlipidemia Hypertension Sleep apnea Past Surgical History: [...] , Rfl: ergocalciferol (Vitamin D-2) 1.25 MG (21298 Units) capsule, Take 1.25 mg by mouth., [...] and at bedtime., Disp: , Rfl: HYDROcodone-acetaminophen (Thorofare) 5-325 mg tablet, TAKE 1 TABLET BY [...] SUBCUTANEOUSLY TWICE DAILY, Disp: (more content not included)...[facility]01-06-2025 History of Present illness Narrative* Mckayla [...] or chew. ergocalciferol (Vitamin D2) 1.25 MG (91204 UT) capsule TAKE 1 CAPSULE BY MOUTH ONE TIME PER WEEK furosemide (LASIX) 40 mg, Oral, Daily furosemide (LASIX) 20 mg, Oral, Daily PRN, Take in the afternoon as needed hydrALAZINE (APRESOLINE) 25 mg, Oral, 2 times daily HYDROcodone-acetaminophen (Thorofare) 5-325 MG tablet 1 tablet, 3 times [...] and depression ([facility]) 07/10/2023 Asthma ([facility]) 07/10/2023 Body mass index (BMI) 50.0-59.9, adult ([facility]) Cellulitis of left lower extremity Cervical cancer ([facility]) 09/17/2023 Chronic pain of both knees 09/17/2023 COPD (chronic obstructive pulmonary disease) [place] 07/10/2023 COPD exacerbation [place] 09/17/2023 Decreased functional mobility 09/17/2023 Diabetic neuropathy ([facility]) 07/10/2023 Dietary counseling and surveillance Edema 07/10/2023 Elevated sed rate Elevated WBC count Essential (primary) hypertension ([facility] GERD (gastroesophageal reflux disease) 09/17/2023 Hyperlipidemia ([facility] 09/17/2023 Hypertension ([facility]) 07/10/2023 Insomnia 09/17/2023 senior care (current) use of insulin [place] Lower extremity edema 09/17/2023 Mixed hyperlipidemia ([facility]) Morbid (severe) obesity due to excess calories [place] Obstructive sleep apnea 07/10/2023 PAD (peripheral artery disease) ([facility]) 09/17/2023 Pancreatitis 09/17/2023 Pneumonia 09/17/2023 Proteinuria, unspecified Pulmonary hypertension ([facility]) 09/17/2023 Radiculopathy, lumbar region 09/17/2023 Tobacco user 09/17/2023 Type 2 diabetes mellitus with complication, with long-term current use of insulin ([facility]) 07/10/2023 Unilateral primary osteoarthritis, right hip 09/17/2023 [...] Diabetic neuropathy ([facility]) Continue with tristan [place] reviewed Fu in 3 months COPD (chronic obstructive pulmonary disease) ([facility]) Stable at this time, no changes in meds Encouraged smoking cessation Cont with dr Yañez Hypertension ([facility]) - Primary Please check blood pressure daily and record DASH diet Limit caffeine Take medication as directed Contact office if chest pain, pressure, dizziness, shortness of breath, swelling legs Recommend slow position changes Current meds: hydralazine, lisinopril, Type 2 diabetes mellitus with complication, with long-term current use of insulin ([facility]) Check blood sugars daily, notify if <70 [...] of insulin ([facility]) Check blood sugars daily, notify if <70 [...] in 3 months documented in this encounterFreeman Heart [id number] Hospital Discharge instructions Patient Education 06/11/2024 10:44:08 [...] require a prescription. You can also purchase srkj-utx-tkmjxeb medicines. Medicines may have nicotine in them [...] and encouragement. Call telephone quitlines, such as 4-217-KCAM-NOW, reach out to support groups, or work [...] provider. Document Revised: 06/16/2022 Document Reviewed: 06/16/2022 [email or web address] Patient Education 2023 [employer]. 06/11/2024 10:39:22 Dietary Guidelines to Help Prevent [...] include: ?8 oz (237 mL) of milk, eoqiwao-nfirlrpkcbsh-xottr milk, and calcium- fortifiedfruit juice. Calcium-fortified means [...] ?Spinach (cooked), rhubarb, beets, sweet potatoes, and English chard. ?Peanuts. ?Potato chips, palauan fries, and baked potatoes with skin on. ?Nuts and nut products. ?Chocolate. If you regularly take a diuretic medicine, make sure to eat at least 1 or 2 servings of fruits or vegetables that are high in potassium each day. These include: ?Avocado. ?Banana. ?Barre, prune, carrot, or tomato juice. ?Baked potato. [...] magnesium, fish oil, or vitamin B6. Take tlam-lxn-xtjqxfc and prescription medicines only as told by [...] Casseroles. Pizza. Lasagna. Frozen meals. Potato chips. Salvadorean fries. The items listed above may not [...] provider. Document Revised: 10/05/2022 Document Reviewed: 10/05/2022 [email or web address] Patient Education 2023 [employer]. Follow Up Care 05/06/2024 08:24:56 With:REGLA PHIPPS, Elbert Joya, URL Address: [facility] [address] , [place] [address]- When: Unknown [facility] 12-04-2024 NotePatient Education Nephrology Dietary [...] ? 8 oz (237 mL) of milk, frjczbs-xzwzufjvfgzf-rtjha milk, and calcium- fortifiedfruit juice. Calcium-fortified means [...] Spinach (cooked), rhubarb, beets, sweet potatoes, and English chard. ? Peanuts. ? Potato chips, palauan fries, and baked potatoes with skin on. ? Nuts and nut products. ? Chocolate. ??? If you regularly take a diuretic medicine, make sure to eat at least 1 or 2 servings of fruits or vegetables that are high in potassium each day. These include: ? Avocado. ? Banana. ? Barre, prune, carrot, or tomato juice. ? Baked [...] fish oil, or vitamin B6. ??? Take dxjh-qra-ixncvfn and prescription medicines only as told by your health (more content not included)...[facility]11-19-2024 History of Present illness Narrative* Rain [...] 96, on lantus 58 units bid, lispro 2-84-89uyrjz plus ISS, Trulicity 4.5 mg weekly. meter give us error during download IM 03/2022 follow up visit on 03/14/2022, A1c in the office 9.4, bg 142, on lantus 58 units bid, lispro 8-70-79xxdcq plus ISS, Trulicity 4.5 mg weekly. lab [...] or chew. ergocalciferol (Vitamin D2) 1.25 MG (28053 UT) capsule TAKE 1 CAPSULE BY MOUTH ONE TIME PER WEEK furosemide (LASIX) 20 mg, Oral, Daily PRN, Take in the afternoon as needed furosemide (LASIX) 40 mg, Oral, Daily Glucose Blood (ACCU-CHEK JAQUI PLUS ) 4 times daily hydrALAZINE (APRESOLINE) 25 mg, Oral, 2 times daily HYDROcodone-acetaminophen (Thorofare) 5-325 MG tablet 1 tablet, 3 times [...] and depression ([facility]) 07/10/2023 Asthma ([facility]) 07/10/2023 Body mass index (BMI) 50.0-59.9, adult ([facility]) Cellulitis of left lower extremity Cervical cancer ([facility]) 09/17/2023 Chronic pain of both knees 09/17/2023 COPD (chronic obstructive pulmonary disease) [place] 07/10/2023 COPD exacerbation ([facility] 09/17/2023 Decreased functional mobility 09/17/2023 Diabetic neuropathy ([facility] 07/10/2023 Dietary counseling and surveillance Edema 07/10/2023 Elevated sed rate Elevated WBC count GERD (gastroesophageal reflux disease) 09/17/2023 Hyperlipidemia ([facility] 09/17/2023 Hypertension ([facility] 07/10/2023 Insomnia 09/17/2023 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 attack controller (current) use of insulin ([facility] Lower extremity edema 09/17/2023 Morbid (severe) obesity due to excess calories ([facility] Obstructive sleep apnea 07/10/2023 PAD (peripheral artery disease) ([facility] 09/17/2023 Pancreatitis 09/17/2023 Pneumonia 09/17/2023 Proteinuria, unspecified Pulmonary hypertension ([facility] 09/17/2023 Radiculopathy, lumbar region 09/17/2023 Tobacco user 09/17/2023 Type 2 diabetes mellitus with complication, with long-term current use of insulin ([facility] 07/10/2023 Unilateral primary osteoarthritis, right hip 09/17/2023 [...] of insulin ([facility]) - POCT glucose manually resulted - POCT glycosylated hemoglobin (Hb A1C) docked device We will continue with Lantus 58, lispro 02/16/12 according to meal size, Mounjaro 15 mg once weekly, Farxiga 5 mg once a day Encounter for dietary consultation Vitamin D deficiency Primary hypertension ([facility]) To follow with her PCP Insulin long-term use ([facility]) Hyperlipemia, mixed ([facility]) Continue with Zocor 10 mg once daily Microalbuminuria Class 3 severe obesity due to excess calories with serious comorbidity and body mass index (BMI) of50.0 to 59.9 in adult ([facility]) Diet and exercise reviewed with the patient Follow up in about 3 months (around 08/27/2024). documented in this encounterFreeman Heart [id number] History of Present illness Narrative* Mckayla Blas [...] of insulin ([facility]) Check blood sugars daily, follow w Endo. [...] Problem(s): Hypertension ([facility]) Stable on current meds Refill meds * Mckayla Blas NP - 04/14/2024 11:42 AM EDTAssociated Problem(s): COPD (chronic obstructive pulmonary disease) ([facility]) Stable at this time, no changes in [...] being taken. She does not see a security control center operator.Eye exam is not current. Hypertension This [...] or chew. ergocalciferol (Vitamin D2) 1.25 MG (92542 UT) capsule TAKE 1 CAPSULE BY MOUTH ONE TIME PER WEEK furosemide (LASIX) 20 mg, Oral, Daily PRN, Take in the afternoon as needed furosemide (LASIX) 40 mg, Oral, Daily Glucose Blood (ACCU-CHEK JAQUI PLUS ) 4 times daily HumaLOG KWIKPEN 100 UNIT/ML injection Subcutaneous hydrALAZINE (APRESOLINE) 25 mg, Oral, 2 times daily HYDROcodone-acetaminophen (Thorofare) 5-325 MG tablet 1 tablet, 3 times [...] Albuminuria 09/17/2023 Angiomyolipoma Anxiety and depression [place] 07/10/2023 Asthma ([facility] 07/10/2023 Cellulitis of left lower extremity Cervical cancer ([facility]) 09/17/2023 Chronic pain of both knees 09/17/2023 COPD (chronic obstructive pulmonary disease) [place] 07/10/2023 COPD exacerbation ([facility] 09/17/2023 Decreased functional mobility 09/17/2023 Diabetic neuropathy ([facility]) 07/10/2023 Edema 07/10/2023 Elevated sed rate Elevated WBC count GERD (gastroesophageal reflux disease) 09/17/2023 Hyperlipidemia ([facility] 09/17/2023 Hypertension ([facility]) 07/10/2023 Insomnia 09/17/2023 Lower extremity edema 09/17/2023 Obstructive sleep apnea 07/10/2023 PAD (peripheral artery disease) ([facility]) 09/17/2023 Pancreatitis 09/17/2023 Pneumonia 09/17/2023 Pulmonary hypertension ([facility]) 09/17/2023 Radiculopathy, lumbar region 09/17/2023 Tobacco user 09/17/2023 Type 2 diabetes mellitus with complication, with long-term current use of insulin ([facility]) 07/10/2023 Unilateral primary osteoarthritis, right hip 09/17/2023 [...] Diabetic neuropathy ([facility]) Continue with tristan EAST reviewed Fu in 3 months Relevant Medications pregabalin (Lyrica) 300 MG capsule COPD (chronic obstructive pulmonary disease) ([facility]) - Primary Stable at this time, no changes in meds Encouraged smoking cessation Cont with dr Yañez Hypertension ([facility]) Stable on current meds Refill meds Relevant Medications hydrALAZINE (Apresoline) 25 MG tablet lisinopril 20 MG tablet Type 2 diabetes mellitus with complication, with long-term current use of insulin ([facility]) Check blood sugars daily, follow w Endo. [...] and depression ([facility]) Relevant Medications DULoxetine (Cymbalta) [address] [...] unspecified complications ([facility]) Relevant Medications dapagliflozin (Farxiga) 10 MG Gastro-esophageal reflux disease without esophagitis Relevant Medications omeprazole (PriLOSEC) [address] capsule Edema, unspecified Relevant Medications potassium chloride ER (Micro-K) 10 MEQ ER capsule Edema Relevant Medications potassium chloride ER (Micro-K) 10 MEQ ER capsule Chronic obstructive pulmonary disease, unspecified ([facility]) Relevant Medications Roflumilast 500 MCG tablet documented in this encounterFreeman Heart [id number] Hospital Discharge instructions Patient Education 11/15/2022 14:09:21 [...] include: ?8 oz (237 mL) of milk, yhcrvyn-xvvccqkduolc-vryic milk, and calcium- fortifiedfruit juice. Calcium-fortified means [...] ?Spinach (cooked), rhubarb, beets, sweet potatoes, and English chard. ?Peanuts. ?Potato chips, palauan fries, and baked potatoes with skin on. ?Nuts and nut products. ?Chocolate. If you regularly take a diuretic medicine, make sure to eat at least 1 or 2 servings of fruits or vegetables that are high in potassium each day. These include: ?Avocado. ?Banana. ?Barre, prune, carrot, or tomato juice. ?Baked potato. [...] magnesium, fish oil, or vitamin B6. Take jano-flg-ajjwodi and prescription medicines only as told by [...] Casseroles. Pizza. Lasagna. Frozen meals. Potato chips. Salvadorean fries. The items listed above may not [...] provider. Document Revised: 03/06/2022 Document Reviewed: 03/06/2022 [employer] Patient Education 2022 [employer]. Follow Up Care 02/06/2022 11:44:09 With:SILVIA HOWELL, GAVIOTA eWbb, URL Address: [address] [place] [address] When: Unknown [facility] 02-16-2023 NoteCONSULTATION CONSULTATION DATE: 08/24/2022 HISTORY OF [...] We maintain her on pain medication with Thorofare 5/325 t.i.d., diclofenac 75 mg b.i.d. Her [...] her at this point. A refill for Thorofare 5/325 t.i.d. and diclofenac 75 mg b.i.d. will be sent to the pharmacy. Vitamin compliance and nutrition were discussed and enforced. I did highly encourage her to use exercise bands to increase the strength in her lower extremities. We will see her in three months' time, unless otherwise indicated, and patient agrees.[facility] [id number] NoteCONSULTATION CONSULTATION DATE: 05/11/2022 This 51-year-old female [...] 150. Medications include Lyrica 300 mg b.i.d., Thorofare 5/325 t.i.d., diclofenac 75 mg b.i.d. and [...] her medications today. We will maintain Lyrica, Thorofare and diclofenac at the set dose and frequency. We will follow-up in the clinic in three months' time. The patient is in agreement to this. Vitamin importance and nutrition were discussed.[facility] [id number] NoteCONSULTATION CONSULTATION DATE: 04/20/2022 HISTORY OF PRESENT [...] medications include Tylenol, Lyrica 300 mg b.i.d., Thorofare 5/325 t.i.d., amitriptyline, diclofenac and duloxetine. Patient's [...] will be followed up in the clinic.[facility] [id number] Evaluation note* Encounter Date Diagnosis Assessment Notes [...] to the DANIEL. Thrombocytopenia is unclear etiology. [employer] Other 08-15-2022 Evaluation note* Encounter Date Diagnosis [...] follow with Dr. Souza and Dr. Arauz. [employer] Other 08-01-2022 Hospital Discharge instructions Patient Education [...] fried and sweet foods. General instructions Take klza-mra-idmikdw and prescription medicines only as told by [...] 04/21/2010 Document Revised: 10/16/2019 Document Reviewed: 07/11/2018 [employer] Patient Education 2020 [employer]. Follow Up Care 01/05/2022 12:02:03 With:REGLA PHIPPS, Elbert Joya, URL Address: [facility] [address], [place] [id number] When:Within 6 Month(s) Comments:w/ repeat CT A/P [facility] 07-14-2022 NoteCONSULTATION PROCEDURE DATE: 01/19/2022 [...] 01/27/2022 14:15:00[facility]07-14-2022 NoteCONSULTATION CONSULTATION DATE: 01/19/2022 This is a [...] today. Medications include Lyrica 300 mg b.i.d., Thorofare 5/325 t.i.d., diclofenac 75 mg b.i.d. and [...] 01/27/2022 14:15:00[facility] Future Appointments Appointment Date:08/14/2022 09:15:00 AM Scheduled Provider:Elbert ARAUZ MD Location:[facility] Appointment Type:URO Office Visit [facility] evaluation + Plan note Future Appointments Appointment Date:04/22/2024 10:00:00 AM Scheduled Provider:GAVIOTA ADAMES PA-C Location:[facility] Appointment Type:URO Office Visit [facility] evaluation note* Diagnosis Type 2 diabetes mellitus with unspecified complications ([facility]) Edema, unspecified Edema documented in this encounter [facility]* Diagnosis Vaginal yeast infection- Primary Candidiasis of vulva and vagina documented in this encounter [facility]Evaluation note* Diagnosis Primary hypertension [...] diabetes mellitus ([facility]) Chronic obstructive pulmonary disease, unspecified ([facility]) Pulmonary emphysema, unspecified emphysema type ([facility]) Bilateral lower extremity edema Tobacco user Tobacco use disorder Hyperpigmentation of skin Other dyschromia Type 2 diabetes mellitus with hyperglycemia, with long-term current use of insulin ([facility])- Primary Encounter for dietary consultation Vitamin D deficiency Primary hypertension ([facility]) Unspecified essential hypertension Insulin long-term use ([facility]) Encounter for long-term (current) use of insulin Hyperlipemia, mixed ([facility]) Mixed hyperlipidemia Microalbuminuria Proteinuria Class 3 severe obesity due to excess calories with serious comorbidity and body mass index (BMI) of50.0 to 59.9 in adult ([facility]) documented in this encounter [facility]* Diagnosis Hyperlipidemia, unspecified ([facility]) Bilateral lower extremity edema documented in this encounter [facility] note* Diagnosis Vitamin D deficiency, unspecified documented in this encounter [facility]Evaluation note* Diagnosis Obstructive sleep apnea- Primary Obstructive sleep apnea (adult) (pediatric) Pulmonary emphysema, unspecified emphysema type ([facility]) Primary hypertension ([facility]) Unspecified essential hypertension Type 2 diabetes mellitus with complication, with long-term current use of insulin ([facility]) Anxiety and depression ([facility]) Bilateral lower extremity edema Pulmonary emphysema, unspecified emphysema type ([facility])- Primary Primary hypertension ([facility] Unspecified essential hypertension Class 3 severe obesity with serious comorbidity and body mass index (BMI) of 50.0 to 59.9 in adult,unspecified obesity type ([facility]) Obstructive sleep apnea Obstructive sleep apnea (adult) (pediatric) Pulmonary hypertension ([facility]) Other chronic pulmonary heart diseases Tobacco user Tobacco use disorder Cardiomegaly Primary hypertension ([facility])- Primary Unspecified essential hypertension Gastroesophageal reflux disease, unspecified whether esophagitis present Type 2 diabetes mellitus with complication, with long-term current use of insulin ([facility]) Mixed hyperlipidemia ([facility]) Mixed hyperlipidemia Tobacco user Tobacco use disorder Encounter for screening mammogram for malignant neoplasm of breast Chronic obstructive pulmonary disease, unspecified ([facility]) Other specified chronic obstructive pulmonary disease ([facility] Anxiety and depression ([facility]) Edema, unspecified Edema Hyperlipidemia, unspecified ([facility]) Diabetic polyneuropathy associated with type 2 diabetes [...] long-term current use of insulin (CMS/[facility]) Class 3 severe obesity with serious comorbidity [...] emphysema type ([facility]) Bilateral lower extremity edema Tobacco user Tobacco use disorder Hyperpigmentation of skin Other dyschromia Bilateral lower extremity edema documented in this encounter [facility]Evaluation note* Diagnosis Obstructive sleep apnea- Primary Obstructive sleep apnea (adult) (pediatric) Pulmonary emphysema, unspecified emphysema type ([facility]) Primary hypertension ([facility]) Unspecified essential hypertension Type 2 diabetes mellitus with complication, with long-term current use of insulin ([facility]) Anxiety and depression ([facility]) Bilateral lower extremity edema Pulmonary emphysema, unspecified emphysema type (CMS/HCC)- Primary Primary hypertension ([facility] Unspecified essential hypertension Class 3 severe obesity with serious comorbidity and body mass index (BMI) of 50.0 to 59.9 in adult,unspecified obesity type ([facility]) Obstructive sleep apnea Obstructive sleep apnea (adult) (pediatric) Pulmonary hypertension ([facility]) Other chronic pulmonary heart diseases Tobacco user Tobacco use disorder Cardiomegaly Primary hypertension ([facility])- Primary Unspecified essential hypertension Gastroesophageal reflux disease, unspecified whether esophagitis present Type 2 diabetes mellitus with complication, with long-term current use of insulin ([facility]) Mixed hyperlipidemia ([facility]) Mixed hyperlipidemia Tobacco user Tobacco use disorder Encounter for screening mammogram for malignant neoplasm of breast Chronic obstructive pulmonary disease, unspecified ([facility]) Other specified chronic obstructive pulmonary disease ([facility] Anxiety and depression ([facility]) Edema, unspecified Edema Hyperlipidemia, unspecified ([facility]) Diabetic polyneuropathy associated with type 2 diabetes mellitus ([facility]) Gout, unspecified cause, unspecified chronicity, unspecified site Non-seasonal allergic rhinitis, unspecified trigger Bilateral lower extremity edema COPD exacerbation ([facility]) Obstructive chronic bronchitis with exacerbation Pulmonary emphysema, unspecified emphysema type ([facility]) Venous insufficiency Unspecified venous (peripheral) insufficiency Candidiasis of breast COPD exacerbation ([facility])- Primary Obstructive chronic bronchitis with exacerbation Pulmonary hypertension ([facility]) Other chronic pulmonary heart diseases Class 3 severe obesity with serious comorbidity and body mass index (BMI) of 50.0 to 59.9 in adult,unspecified obesity type ([facility]) Encounter for subsequent annual wellness visit (AWV) in Medicare patient- Primary Type 2 diabetes mellitus with unspecified complications ([facility]) Pulmonary emphysema, unspecified emphysema type (CMS/HCC) Moderate persistent asthma without complication (CMS/HCC) Primary hypertension (CMS/[facility]) Unspecified essential hypertension Type 2 diabetes mellitus with complication, with long-term current use of insulin ([facility]) Class 3 severe obesity with serious comorbidity and body mass index (BMI) of 50.0 to 59.9 in adult,unspecified obesity type (CMS/[facility]) Tobacco user Tobacco use disorder Other headache syndrome Malignant neoplasm of cervix uteri, unspecified (CMS/HCC) Other specified disorders of adrenal gland (CMS/[facility]) Major depressive disorder, single episode, mild (HCC) ([facility]) Major depressive disorder, single episode, mild Non-pressure chronic ulcer of other part of left lower leg with fat layer exposed (CMS/[facility]) Chronic respiratory failure, unspecified whether with hypoxia or hypercapnia (CMS/[facility]) Disorder of adrenal gland, unspecified (CMS/[facility]) Non-pressure chronic ulcer of other part of right lower leg limited to breakdown of skin (CMS/[facility]) Non-recurrent acute suppurative otitis media of left ear without spontaneous rupture of tympanic membrane Primary hypertension ([facility])- Primary Unspecified essential hypertension Insomnia Insomnia, unspecified Type 2 diabetes mellitus with complication, with long-term current use of insulin (CMS/[facility]) Non-seasonal allergic rhinitis, unspecified trigger Type 2 diabetes mellitus with unspecified complications ([facility]) Anxiety and depression ([facility]) Gastro-esophageal reflux disease without esophagitis Edema, unspecified Edema Diabetic polyneuropathy associated with type 2 diabetes mellitus ([facility]) Chronic obstructive pulmonary disease, unspecified (CMS/[facility]) Pulmonary emphysema, unspecified emphysema type (CMS/HCC) Bilateral lower extremity edema Tobacco user Tobacco use disorder Hyperpigmentation of skin Other dyschromia Primary hypertension (CMS/HCC)- Primary Unspecified essential hypertension Diabetic polyneuropathy associated with type 2 diabetes mellitus (CMS/HCC) Pulmonary emphysema, unspecified emphysema type (CMS/HCC) Critical limb ischemia of right lower extremity (CMS/[facility]) PAD (peripheral artery disease) ([facility]) Unspecified peripheral vascular disease Gastroesophageal reflux disease, unspecified whether esophagitis present Bilateral lower extremity edema Venous ulcer of right leg (CMS/[facility]) Type 2 diabetes mellitus with complication, with long-term current use of insulin (CMS/[facility]) Tobacco user Tobacco use disorder Encounter for [...] unspecified emphysema type (CMS/HCC)- Primary Primary hypertension (CMS/[facility]) Unspecified essential hypertension Class 3 severe obesity [...] current use of insulin (CMS/HCC) Mixed hyperlipidemia (CMS/[facility]) Mixed hyperlipidemia Tobacco user Tobacco use disorder Encounter for screening mammogram for malignant neoplasm of breast Chronic obstructive pulmonary disease, unspecified (CMS/[facility]) Other specified chronic obstructive pulmonary disease (CMS/HCC) Anxiety and depression (CMS/HCC) Edema, unspecified Edema Hyperlipidemia, unspecified (CMS/[facility]) Diabetic polyneuropathy associated with type 2 diabetes mellitus (CMS/[facility]) Gout, unspecified cause, unspecified chronicity, unspecified site [...] 50.0 to 59.9 in adult,unspecified obesity type (CMS/[facility]) Encounter for subsequent annual wellness visit (AWV) in Medicare patient- Primary Type 2 diabetes mellitus with unspecified complications (CMS/HCC) Pulmonary emphysema, unspecified emphysema type (CMS/HCC) Moderate persistent asthma without complication (CMS/HCC) Primary hypertension (CMS/HCC) Unspecified essential hypertension Type 2 diabetes mellitus with complication, with long-term current use of insulin (CMS/[facility]) Class 3 severe obesity with serious comorbidity and body mass index (BMI) of 50.0 to 59.9 in adult,unspecified obesity type (CMS/HCC) Tobacco user Tobacco use disorder Other headache syndrome Malignant neoplasm of cervix uteri, unspecified (CMS/HCC) Other specified disorders of adrenal gland (CMS/HCC) Major depressive disorder, single episode, mild (HCC) (CMS/[facility]) Major depressive disorder, single episode, mild Non-pressure chronic ulcer of other part of left lower leg with fat layer exposed (CMS/[facility]) Chronic respiratory failure, unspecified whether with hypoxia or hypercapnia (CMS/[facility]) Disorder of adrenal gland, unspecified (CMS/[facility]) Non-pressure chronic ulcer of other part of right lower leg limited to breakdown of skin (CMS/[facility]) Non-recurrent acute suppurative otitis media of left ear without spontaneous rupture of tympanic membrane Primary hypertension ([facility]/HCC)- Primary Unspecified essential hypertension Insomnia Insomnia, unspecified Type 2 diabetes mellitus with complication, with long-term current use of insulin (CMS/[facility]) Non-seasonal allergic rhinitis, unspecified trigger Type 2 diabetes mellitus with unspecified complications (CMS/[facility]) Anxiety and depression (CMS/[facility]) Gastro-esophageal reflux disease without esophagitis Edema, unspecified Edema Diabetic polyneuropathy associated with type 2 diabetes mellitus ([facility] [facility] Chronic obstructive pulmonary disease, unspecified (CMS/HCC) Pulmonary [...] artery disease) ([facility]) Unspecified peripheral vascular disease Gastroesophageal reflux disease, unspecified whether esophagitis present Bilateral lower extremity edema Venous ulcer of right leg (CMS/[facility]) Type 2 diabetes mellitus with complication, with long-term current use of insulin (CMS/[facility]) Tobacco user Tobacco use disorder Encounter for smoking cessation counseling Kidney stone Calculus of kidney Adrenal mass 1 cm to 4 cm in diameter ([facility]) Radiculopathy, lumbar region Thoracic or lumbosacral neuritis or radiculitis, unspecified Non-seasonal allergic rhinitis, unspecified trigger Type 2 diabetes mellitus with unspecified complications ([facility] Anxiety and depression ([facility])- Primary Morbid (severe) obesity due to excess calories ([facility]) Body mass index (BMI) 50.0-59.9, adult ([facility]) Malignant neoplasm of cervix uteri, unspecified ([facility]) Diabetic polyneuropathy associated with type 2 diabetes mellitus ([facility] Chronic diastolic heart failure ([facility] Chronic diastolic heart failure Primary hypertension ([facility]) Unspecified essential hypertension 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 ([facility]) Gastroesophageal reflux disease, unspecified whether esophagitis present Bilateral lower extremity edema Type 2 diabetes mellitus with complication, with long-term current use of insulin ([facility] Tobacco user Tobacco use disorder Mixed hyperlipidemia ([facility]) Mixed hyperlipidemia Gout, unspecified cause, unspecified chronicity, unspecified site Vitamin deficiency Unspecified vitamin deficiency Gastro-esophageal reflux disease without esophagitis Edema, unspecified Edema Hyperlipidemia, unspecified ([facility]) Encounter for smoking cessation counseling Venous ulcer of right leg ([facility]) Antibiotic-induced yeast infection documented in this encounter [facility] HealthcareEvaluation note* Diagnosis Obstructive sleep apnea- Primary Obstructive sleep apnea (adult) (pediatric) Pulmonary emphysema, unspecified emphysema type ([facility]) Primary hypertension ([facility]) Unspecified essential hypertension Type 2 diabetes mellitus with complication, with long-term current use of insulin ([facility]) Anxiety and depression ([facility]) Bilateral lower extremity edema Pulmonary emphysema, unspecified emphysema type ([facility])- Primary Primary hypertension ([facility] Unspecified essential hypertension Class 3 severe obesity with serious comorbidity and body mass index (BMI) of 50.0 to 59.9 in adult,unspecified obesity type Obstructive sleep apnea Obstructive sleep apnea (adult) (pediatric) Pulmonary hypertension ([facility]) Other chronic pulmonary heart diseases Tobacco user Tobacco use disorder Cardiomegaly Primary hypertension ([facility])- Primary Unspecified essential hypertension Gastroesophageal reflux disease, unspecified whether esophagitis present Type 2 diabetes mellitus with complication, with long-term current use of insulin ([facility] Mixed hyperlipidemia (CMS/[facility]) Mixed hyperlipidemia Tobacco user Tobacco use disorder Encounter for screening mammogram for malignant neoplasm of breast Chronic obstructive pulmonary disease, unspecified Other specified chronic obstructive pulmonary disease Anxiety and depression (CMS/[facility]) Edema, unspecified Edema Hyperlipidemia, unspecified (CMS/[facility]) Diabetic polyneuropathy associated with type 2 diabetes mellitus (CMS/[facility]) Gout, unspecified cause, unspecified chronicity, unspecified site Non-seasonal allergic rhinitis, unspecified trigger Bilateral lower extremity edema COPD exacerbation (CMS/[facility]) Obstructive chronic bronchitis with exacerbation Pulmonary emphysema, unspecified emphysema type (CMS/[facility]) Venous insufficiency Unspecified venous (peripheral) insufficiency Candidiasis of breast COPD exacerbation (CMS/[facility])- Primary Obstructive chronic bronchitis with exacerbation Pulmonary hypertension (CMS/[facility]) Other chronic pulmonary heart diseases Class 3 severe obesity with serious comorbidity and body mass index (BMI) of 50.0 to 59.9 in adult,unspecified obesity type Encounter for subsequent annual wellness visit (AWV) in Medicare patient- Primary Type 2 diabetes mellitus with unspecified complications Pulmonary emphysema, unspecified emphysema type ([facility] Moderate persistent asthma without complication ([facility]) Primary hypertension ([facility]) Unspecified essential hypertension Type 2 diabetes mellitus with complication, with long-term current use of insulin ([facility]) Class 3 severe obesity with serious comorbidity and body mass index (BMI) of 50.0 to 59.9 in adult,unspecified obesity type Tobacco user Tobacco use disorder Other headache syndrome Malignant neoplasm of cervix uteri, unspecified Other specified disorders of adrenal gland Major depressive disorder, single episode, mild (HCC) ([facility]) Major depressive disorder, single episode, mild Non-pressure chronic ulcer of other part of left lower leg with fat layer exposed Chronic respiratory failure, unspecified whether with hypoxia or hypercapnia Disorder of adrenal gland, unspecified Non-pressure chronic ulcer of other part of right lower leg limited to breakdown of skin (CMS/[facility]) Non-recurrent acute suppurative otitis media of left ear without spontaneous rupture of tympanic membrane Primary hypertension (CMS/[facility])- Primary Unspecified essential hypertension Insomnia Insomnia, unspecified Type 2 diabetes mellitus with complication, with long-term current use of insulin (CMS/[facility]) Non-seasonal allergic rhinitis, unspecified trigger Type 2 diabetes mellitus with unspecified complications Anxiety and depression ([facility]) Gastro-esophageal reflux disease without esophagitis Edema, unspecified Edema Diabetic polyneuropathy associated with type 2 diabetes mellitus ([facility]) Chronic obstructive pulmonary disease, unspecified Pulmonary emphysema, unspecified emphysema type ([facility]) Bilateral lower extremity edema Tobacco user Tobacco use disorder Hyperpigmentation of skin Other dyschromia Primary hypertension ([facility])- Primary Unspecified essential hypertension Diabetic polyneuropathy associated with type 2 diabetes mellitus ([facility]) Pulmonary emphysema, unspecified emphysema type ([facility] Critical limb ischemia of right lower extremity ([facility]) PAD (peripheral artery disease) ([facility]) Unspecified peripheral vascular disease Gastroesophageal reflux disease, unspecified whether esophagitis present Bilateral lower extremity edema Venous ulcer of right leg ([facility]) Type 2 diabetes mellitus with complication, with long-term current use of insulin ([facility]) Tobacco user Tobacco use disorder Encounter for smoking cessation counseling Kidney stone Calculus of kidney Adrenal mass 1 cm to 4 cm in diameter ([facility]) Radiculopathy, lumbar region Thoracic or lumbosacral neuritis or radiculitis, unspecified Non-seasonal allergic rhinitis, unspecified trigger Type 2 diabetes mellitus with unspecified complications Anxiety and depression ([facility])- Primary Morbid (severe) obesity due to excess calories ([facility]) Body mass index (BMI) 50.0-59.9, adult ([facility]) Malignant neoplasm of cervix uteri, unspecified Diabetic polyneuropathy associated with type 2 diabetes mellitus ([facility] Chronic diastolic heart failure ([facility] Chronic diastolic heart failure Primary hypertension [place] Unspecified essential hypertension 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 Gastroesophageal reflux disease, unspecified whether esophagitis present Bilateral lower extremity edema Type 2 diabetes mellitus with complication, with long-term current use of insulin ([facility] Tobacco user Tobacco use disorder Mixed hyperlipidemia ([facility]) Mixed hyperlipidemia Gout, unspecified cause, unspecified chronicity, unspecified site Vitamin deficiency Unspecified vitamin deficiency Gastro-esophageal reflux disease without esophagitis Edema, unspecified Edema Hyperlipidemia, unspecified [place] Encounter for smoking cessation counseling Venous ulcer of right leg [place] Antibiotic-induced yeast infection Type 2 diabetes mellitus with hyperglycemia, with long-term current use of insulin [place] Primary Encounter for dietary consultation Vitamin D deficiency Primary hypertension ([facility] Unspecified essential hypertension Insulin long-term use [place] Encounter for long-term (current) use of insulin Hyperlipemia, mixed ([facility]) Mixed hyperlipidemia Microalbuminuria Proteinuria Class 3 severe obesity due to excess calories with serious comorbidity and body mass index (BMI) of50.0 to 59.9 in adult documented in this encounter [facility] HealthcareEvaluation note* Diagnosis Obstructive sleep apnea- Primary Obstructive sleep apnea (adult) (pediatric) Pulmonary emphysema, unspecified emphysema type ([facility]) Primary hypertension ([facility]) Unspecified essential hypertension Type 2 diabetes mellitus with complication, with long-term current use of insulin ([facility]) Anxiety and depression ([facility]) Bilateral lower extremity edema Pulmonary emphysema, unspecified emphysema type ([facility])- Primary Primary hypertension ([facility] Unspecified essential hypertension Class 3 severe obesity with serious comorbidity and body mass index (BMI) of 50.0 to 59.9 in adult,unspecified obesity type Obstructive sleep apnea Obstructive sleep apnea (adult) (pediatric) Pulmonary hypertension ([facility]) Other chronic pulmonary heart diseases Tobacco user Tobacco use disorder Cardiomegaly Primary hypertension ([facility])- Primary Unspecified essential hypertension Gastroesophageal reflux disease, unspecified whether esophagitis present Type 2 diabetes mellitus with complication, with long-term current use of insulin ([facility]) Mixed hyperlipidemia ([facility]) Mixed hyperlipidemia Tobacco user Tobacco use disorder Encounter for screening mammogram for malignant neoplasm of breast Chronic obstructive pulmonary disease, unspecified Other specified chronic obstructive pulmonary disease Anxiety and depression ([facility]) Edema, unspecified Edema Hyperlipidemia, unspecified ([facility]) Diabetic polyneuropathy associated with type 2 diabetes mellitus ([facility]) Gout, unspecified cause, unspecified chronicity, unspecified site Non-seasonal allergic rhinitis, unspecified trigger Bilateral lower extremity edema COPD exacerbation ([facility]) Obstructive chronic bronchitis with exacerbation Pulmonary emphysema, unspecified emphysema type ([facility]) Venous insufficiency Unspecified venous (peripheral) insufficiency Candidiasis of breast COPD exacerbation ([facility])- Primary Obstructive chronic bronchitis with exacerbation Pulmonary hypertension ([facility]) Other chronic pulmonary heart diseases Class 3 severe obesity with serious comorbidity and body mass index (BMI) of 50.0 to 59.9 in adult,unspecified obesity type Encounter for subsequent annual wellness visit (AWV) in Medicare patient- Primary Type 2 diabetes mellitus with unspecified complications Pulmonary emphysema, unspecified emphysema type ([facility] Moderate persistent asthma without complication ([facility]) Primary hypertension ([facility]) Unspecified essential hypertension Type 2 diabetes mellitus with complication, with long-term current use of insulin ([facility]) Class 3 severe obesity with serious comorbidity and body mass index (BMI) of 50.0 to 59.9 in adult,unspecified obesity type Tobacco user Tobacco use disorder Other headache syndrome Malignant neoplasm of cervix uteri, unspecified Other specified disorders of adrenal gland Major depressive disorder, single episode, mild (HCC) ([facility]) Major depressive disorder, single episode, mild Non-pressure chronic ulcer of other part of left lower leg with fat layer exposed Chronic respiratory failure, unspecified whether with hypoxia or hypercapnia Disorder of adrenal gland, unspecified Non-pressure chronic ulcer of other part of right lower leg limited to breakdown of skin ([facility]) Non-recurrent acute suppurative otitis media of left ear without spontaneous rupture of tympanic membrane Primary hypertension ([facility])- Primary Unspecified essential hypertension Insomnia Insomnia, unspecified Type 2 diabetes mellitus with complication, with long-term current use of insulin ([facility]) Non-seasonal allergic rhinitis, unspecified trigger Type 2 diabetes mellitus with unspecified complications Anxiety and depression ([facility]) Gastro-esophageal reflux disease without esophagitis Edema, unspecified Edema Diabetic polyneuropathy associated with type 2 diabetes mellitus ([facility]) Chronic obstructive pulmonary disease, unspecified Pulmonary emphysema, unspecified emphysema type ([facility]) Bilateral lower extremity edema Tobacco user Tobacco use disorder Hyperpigmentation of skin Other dyschromia Primary hypertension ([facility])- Primary Unspecified essential hypertension Diabetic polyneuropathy associated with type 2 diabetes mellitus ([facility]) Pulmonary emphysema, unspecified emphysema type ([facility]) Critical limb ischemia of right lower extremity ([facility]) PAD (peripheral artery disease) ([facility]) Unspecified peripheral vascular disease Gastroesophageal reflux disease, unspecified whether esophagitis present Bilateral lower extremity edema Venous ulcer of right leg ([facility]) Type 2 diabetes mellitus with complication, with long-term current use of insulin ([facility]) Tobacco user Tobacco use disorder Encounter for smoking cessation counseling Kidney stone Calculus of kidney Adrenal mass 1 cm to 4 cm in diameter ([facility]) Radiculopathy, lumbar region Thoracic or lumbosacral neuritis or radiculitis, unspecified Non-seasonal allergic rhinitis, unspecified trigger Type 2 diabetes mellitus with unspecified complications Anxiety and depression ([facility])- Primary Morbid (severe) obesity due to excess calories ([facility]) Body mass index (BMI) 50.0-59.9, adult ([facility]) Malignant neoplasm of cervix uteri, unspecified Diabetic polyneuropathy associated with type 2 diabetes mellitus ([facility] Chronic diastolic heart failure ([facility]) Chronic diastolic heart failure Primary hypertension ([facility]) Unspecified essential hypertension 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 Gastroesophageal reflux disease, unspecified whether esophagitis present Bilateral lower extremity edema Type 2 diabetes mellitus with complication, with long-term current use of insulin ([facility] Tobacco user Tobacco use disorder Mixed hyperlipidemia ([facility]) Mixed hyperlipidemia Gout, unspecified cause, unspecified chronicity, unspecified site Vitamin deficiency Unspecified vitamin deficiency Gastro-esophageal reflux disease without esophagitis Edema, unspecified Edema Hyperlipidemia, unspecified ([facility]) Encounter for smoking cessation counseling Venous ulcer of right leg ([facility]) Antibiotic-induced yeast infection Chronic obstructive pulmonary disease, unspecified documented in this encounter [facility] HealthcareEvaluation note* Diagnosis Obstructive sleep apnea- Primary Obstructive sleep apnea (adult) (pediatric) Pulmonary emphysema, unspecified emphysema type ([facility]) Primary hypertension ([facility]) Unspecified essential hypertension Type 2 diabetes mellitus with complication, with long-term current use of insulin ([facility]) Anxiety and depression ([facility]) Bilateral lower extremity edema Pulmonary emphysema, unspecified emphysema type ([facility])- Primary Primary hypertension ([facility] Unspecified essential hypertension Class 3 severe obesity with serious comorbidity and body mass index (BMI) of 50.0 to 59.9 in adult,unspecified obesity type Obstructive sleep apnea Obstructive sleep apnea (adult) (pediatric) Pulmonary hypertension ([facility]) Other chronic pulmonary heart diseases Tobacco user Tobacco use disorder Cardiomegaly Primary hypertension ([facility])- Primary Unspecified essential hypertension Gastroesophageal reflux disease, unspecified whether esophagitis present Type 2 diabetes mellitus with complication, with long-term current use of insulin ([facility]) Mixed hyperlipidemia ([facility]) Mixed hyperlipidemia Tobacco user Tobacco use disorder Encounter for screening mammogram for malignant neoplasm of breast Chronic obstructive pulmonary disease, unspecified Other specified chronic obstructive pulmonary disease Anxiety and depression ([facility]) Edema, unspecified Edema Hyperlipidemia, unspecified ([facility]) Diabetic polyneuropathy associated with type 2 diabetes mellitus ([facility]) Gout, unspecified cause, unspecified chronicity, unspecified site Non-seasonal allergic rhinitis, unspecified trigger Bilateral lower extremity edema COPD exacerbation ([facility]) Obstructive chronic bronchitis with exacerbation Pulmonary emphysema, unspecified emphysema type ([facility]) Venous insufficiency Unspecified venous (peripheral) insufficiency Candidiasis of breast COPD exacerbation (CMS/[facility])- Primary Obstructive chronic bronchitis with exacerbation Pulmonary hypertension (CMS/[facility]) Other chronic pulmonary heart diseases Class 3 severe obesity with serious comorbidity and body mass index (BMI) of 50.0 to 59.9 in adult,unspecified obesity type Encounter for subsequent annual wellness visit (AWV) in Medicare patient- Primary Type 2 diabetes mellitus with unspecified complications Pulmonary emphysema, unspecified emphysema type ([facility] Moderate persistent asthma without complication ([facility]) Primary hypertension ([facility]) Unspecified essential hypertension Type 2 diabetes mellitus with complication, with long-term current use of insulin ([facility]) Class 3 severe obesity with serious comorbidity and body mass index (BMI) of 50.0 to 59.9 in adult,unspecified obesity type Tobacco user Tobacco use disorder Other headache syndrome Malignant neoplasm of cervix uteri, unspecified Other specified disorders of adrenal gland Major depressive disorder, single episode, mild (HCC) ([facility]) Major depressive disorder, single episode, mild Non-pressure chronic ulcer of other part of left lower leg with fat layer exposed Chronic respiratory failure, unspecified whether with hypoxia or hypercapnia Disorder of adrenal gland, unspecified Non-pressure chronic ulcer of other part of right lower leg limited to breakdown of skin ([facility]) Non-recurrent acute suppurative otitis media of left ear without spontaneous rupture of tympanic membrane Primary hypertension ([facility])- Primary Unspecified essential hypertension Insomnia Insomnia, unspecified Type 2 diabetes mellitus with complication, with long-term current use of insulin ([facility]) Non-seasonal allergic rhinitis, unspecified trigger Type 2 diabetes mellitus with unspecified complications Anxiety and depression ([facility]) Gastro-esophageal reflux disease without esophagitis Edema, unspecified Edema Diabetic polyneuropathy associated with type 2 diabetes mellitus ([facility]) Chronic obstructive pulmonary disease, unspecified Pulmonary emphysema, unspecified emphysema type ([facility]) Bilateral lower extremity edema Tobacco user Tobacco use disorder Hyperpigmentation of skin Other dyschromia Primary hypertension (CMS/[facility])- Primary Unspecified essential hypertension Diabetic polyneuropathy associated with type 2 diabetes mellitus (CMS/[facility]) Pulmonary emphysema, unspecified emphysema type ([facility] Critical limb ischemia of right lower extremity ([facility]) PAD (peripheral artery disease) ([facility]) Unspecified peripheral vascular disease Gastroesophageal reflux disease, unspecified whether esophagitis present Bilateral lower extremity edema Venous ulcer of right leg ([facility]) Type 2 diabetes mellitus with complication, with long-term current use of insulin ([facility]) Tobacco user Tobacco use disorder Encounter for smoking cessation counseling Kidney stone Calculus of kidney Adrenal mass 1 cm to 4 cm in diameter ([facility]) Radiculopathy, lumbar region Thoracic or lumbosacral neuritis or radiculitis, unspecified Non-seasonal allergic rhinitis, unspecified trigger Type 2 diabetes mellitus with unspecified complications Anxiety and depression ([facility])- Primary Morbid (severe) obesity due to excess calories ([facility]) Body mass index (BMI) 50.0-59.9, adult ([facility]) Malignant neoplasm of cervix uteri, unspecified Diabetic polyneuropathy associated with type 2 diabetes mellitus ([facility] Chronic diastolic heart failure ([facility]) Chronic diastolic heart failure Primary hypertension ([facility]) Unspecified essential hypertension Idiopathic chronic 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 Gastroesophageal reflux disease, unspecified whether esophagitis present Bilateral lower extremity edema Type 2 diabetes mellitus with complication, with long-term current use of insulin ([facility]) Tobacco user Tobacco use disorder Mixed hyperlipidemia ([facility]) Mixed hyperlipidemia Gout, unspecified cause, unspecified chronicity, unspecified site Vitamin deficiency Unspecified vitamin deficiency Gastro-esophageal reflux disease without esophagitis Edema, unspecified Edema Hyperlipidemia, unspecified [place] Encounter for smoking cessation counseling Venous ulcer of right leg ([facility] Antibiotic-induced yeast infection Primary hypertension ([facility] Primary Unspecified essential hypertension Diabetic polyneuropathy associated with type 2 diabetes mellitus ([facility] Chronic diastolic heart failure ([facility]) Chronic diastolic heart failure Bilateral lower extremity edema Morbid (severe) obesity due to excess calories ([facility]) Type 2 diabetes mellitus with complication, with long-term current use of insulin ([facility] Anxiety and depression ([facility]) Cigarette nicotine dependence without complication Encounter for screening mammogram for malignant neoplasm of breast Insomnia Insomnia, unspecified Non-seasonal allergic rhinitis, unspecified trigger Type 2 diabetes mellitus with unspecified complications Vitamin D deficiency, unspecified Gastro-esophageal reflux disease without esophagitis PAD (peripheral artery disease) ([facility]) Unspecified peripheral vascular disease Gastroesophageal reflux disease, unspecified whether esophagitis present Venous ulcer of right leg ([facility]) documented in this encounter [facility] [...] obesity type ([facility] Obstructive sleep apnea Obstructive sleep apnea (adult) [...] obesity type ([facility]) Encounter for subsequent annual wellness visit (AWV) [...] leg with fat layer exposed ([facility]) Chronic respiratory failure, unspecified whether with hypoxia or hypercapnia ([facility]) Disorder of adrenal gland, unspecified ([facility]) Non-pressure chronic ulcer of other part of right lower leg limited to breakdown of skin ([facility]) Non-recurrent acute suppurative otitis media of left ear without spontaneous rupture of tympanic membrane Primary hypertension- Primary Unspecified essential hypertension Insomnia Insomnia, unspecified Type 2 diabetes mellitus with complication, with long-term current use of insulin ([facility]) Non-seasonal allergic rhinitis, unspecified trigger Type 2 diabetes mellitus with unspecified complications ([facility]) Anxiety and depression Gastro-esophageal reflux disease without esophagitis Edema, unspecified Edema Diabetic polyneuropathy associated with type 2 diabetes mellitus ([facility]) Chronic obstructive pulmonary disease, unspecified ([facility]) Pulmonary emphysema, unspecified emphysema type ([facility]) Bilateral lower extremity edema Tobacco user Tobacco use disorder Hyperpigmentation of skin Other dyschromia Primary hypertension- Primary Unspecified essential hypertension Diabetic polyneuropathy associated with type 2 diabetes mellitus ([facility]) Pulmonary emphysema, unspecified emphysema type ([facility]) Critical limb ischemia of right lower extremity ([facility]) PAD (peripheral artery disease) Unspecified peripheral vascular disease Gastroesophageal reflux disease, unspecified whether esophagitis present Bilateral lower extremity edema Venous ulcer of right leg ([facility]) Type 2 diabetes mellitus with complication, with long-term current use of insulin ([facility]) Tobacco user Tobacco use disorder Encounter for smoking cessation counseling Kidney stone Calculus of kidney Adrenal mass 1 cm to 4 cm in diameter ([facility]) Radiculopathy, lumbar region Thoracic or lumbosacral neuritis or radiculitis, unspecified Non-seasonal allergic rhinitis, unspecified trigger Type 2 diabetes mellitus with unspecified complications ([facility]) Anxiety and depression- Primary Morbid (severe) obesity due to excess calories ([facility]) Body mass index (BMI) 50.0-59.9, adult ([facility]) Malignant neoplasm of cervix uteri, unspecified ([facility]) Diabetic polyneuropathy associated with type 2 diabetes mellitus ([facility]) Chronic diastolic heart failure (HCC) Chronic diastolic [...] excess calories ([facility]) Type 2 diabetes mellitus with complication, with long-term current use of insulin ([facility]) Anxiety and depression Cigarette nicotine dependence without complication Encounter for screening mammogram for malignant neoplasm of breast Insomnia Insomnia, unspecified Non-seasonal allergic rhinitis, unspecified trigger Type 2 diabetes mellitus with unspecified complications ([facility]) Vitamin D deficiency, unspecified Gastro-esophageal reflux disease without esophagitis PAD (peripheral artery disease) Unspecified peripheral vascular disease Gastroesophageal reflux disease, unspecified whether esophagitis present Venous ulcer of right leg (HCC) Cellulitis of left lower extremity- Primary COPD exacerbation ([facility]) Obstructive chronic bronchitis with exacerbation Primary hypertension Unspecified essential hypertension Pulmonary hypertension (HCC) Other chronic pulmonary heart diseases Morbid (severe) obesity due to excess calories ([facility]) Type 2 diabetes mellitus with complication, with long-term current use of insulin ([facility]) Anxiety and depression Fever, unspecified fever cause Hyperlipidemia, unspecified Tobacco user Tobacco use disorder Encounter for smoking cessation counseling documented in this encounter [facility] HealthcareEvaluation note* Diagnosis Obstructive sleep apnea- Primary Obstructive sleep apnea (adult) (pediatric) Pulmonary emphysema, unspecified emphysema type ([facility]) Primary hypertension ([facility]) Unspecified essential hypertension Type 2 diabetes mellitus with complication, with long-term current use of insulin ([facility]) Anxiety and depression ([facility]) Bilateral lower extremity edema Pulmonary emphysema, unspecified emphysema type ([facility])- Primary Primary hypertension ([facility] Unspecified essential hypertension Class 3 severe obesity [...] chronic obstructive pulmonary disease Anxiety and depression (CMS/[facility]) Edema, unspecified Edema Hyperlipidemia, unspecified (CMS/HCC) Diabetic polyneuropathy associated with type 2 diabetes mellitus (CMS/[facility]) Gout, unspecified cause, unspecified chronicity, unspecified site Non-seasonal allergic rhinitis, unspecified trigger Bilateral lower extremity edema COPD exacerbation ([facility]) Obstructive chronic bronchitis with exacerbation Pulmonary emphysema, unspecified emphysema type (CMS/[facility]) Venous insufficiency Unspecified venous (peripheral) insufficiency Candidiasis of breast COPD exacerbation (CMS/[facility])- Primary Obstructive chronic bronchitis with exacerbation Pulmonary hypertension (CMS/[facility]) Other chronic pulmonary heart diseases Class 3 severe obesity with serious comorbidity and body mass index (BMI) of 50.0 to 59.9 in adult,unspecified obesity type Encounter for subsequent annual wellness visit (AWV) in Medicare patient- Primary Type 2 diabetes mellitus with unspecified complications Pulmonary emphysema, unspecified emphysema type (CMS/[facility]) Moderate persistent asthma without complication (CMS/[facility]) Primary hypertension ([facility]) Unspecified essential hypertension Type 2 diabetes mellitus with complication, with long-term current use of insulin ([facility]) Class 3 severe obesity with serious comorbidity and body mass index (BMI) of 50.0 to 59.9 in adult,unspecified obesity type Tobacco user Tobacco use disorder Other headache syndrome Malignant neoplasm of cervix uteri, unspecified Other specified disorders of adrenal gland Major depressive disorder, single episode, mild (HCC) (CMS/[facility]) Major depressive disorder, single episode, mild Non-pressure chronic ulcer of other part of left lower leg with fat layer exposed Chronic respiratory failure, unspecified whether with hypoxia or hypercapnia Disorder of adrenal gland, unspecified Non-pressure chronic ulcer of other part of right lower leg limited to breakdown of skin (CMS/[facility]) Non-recurrent acute suppurative otitis media of left ear without spontaneous rupture of tympanic membrane Primary hypertension (CMS/[facility])- Primary Unspecified essential hypertension Insomnia Insomnia, unspecified Type 2 diabetes mellitus with complication, with long-term current use of insulin ([facility]) Non-seasonal allergic rhinitis, unspecified trigger Type 2 diabetes mellitus with unspecified complications Anxiety and depression ([facility]) Gastro-esophageal reflux disease without esophagitis Edema, unspecified Edema Diabetic polyneuropathy associated with type 2 diabetes mellitus ([facility]) Chronic obstructive pulmonary disease, unspecified Pulmonary emphysema, unspecified emphysema type ([facility]) Bilateral lower extremity edema Tobacco user Tobacco use disorder Hyperpigmentation of skin Other dyschromia Primary hypertension ([facility])- Primary Unspecified essential hypertension Diabetic polyneuropathy associated with type 2 diabetes mellitus ([facility]) Pulmonary emphysema, unspecified emphysema type ([facility]) Critical limb ischemia of right lower extremity ([facility]) PAD (peripheral artery disease) [place] Unspecified peripheral vascular disease Gastroesophageal reflux disease, unspecified whether esophagitis present Bilateral lower extremity edema Venous ulcer of right leg ([facility]) Type 2 diabetes mellitus with complication, with long-term current use of insulin ([facility]) Tobacco user Tobacco use disorder Encounter for smoking cessation counseling Kidney stone Calculus of kidney Adrenal mass 1 cm to 4 cm in diameter ([facility]) Radiculopathy, lumbar region Thoracic or lumbosacral neuritis or radiculitis, unspecified Non-seasonal allergic rhinitis, unspecified trigger Type 2 diabetes mellitus with unspecified complications Anxiety and depression ([facility])- Primary Morbid (severe) obesity due to excess calories ([facility]) Body mass index (BMI) 50.0-59.9, adult ([facility]) Malignant neoplasm of cervix uteri, unspecified Diabetic polyneuropathy associated with type 2 diabetes mellitus ([facility] Chronic diastolic heart failure ([facility]) Chronic diastolic heart failure Primary hypertension ([facility]) Unspecified essential hypertension Idiopathic chronic 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 Gastroesophageal reflux disease, unspecified whether esophagitis present Bilateral lower extremity edema Type 2 diabetes mellitus with complication, with long-term current use of insulin ([facility]) Tobacco user Tobacco use disorder Mixed hyperlipidemia ([facility]) Mixed hyperlipidemia Gout, unspecified cause, unspecified chronicity, unspecified site Vitamin deficiency Unspecified vitamin deficiency Gastro-esophageal reflux disease without esophagitis Edema, unspecified Edema Hyperlipidemia, unspecified [place] Encounter for smoking cessation counseling Venous ulcer of right leg ([facility] Antibiotic-induced yeast infection Primary hypertension ([facility])- Primary Unspecified essential hypertension Diabetic polyneuropathy associated with type 2 diabetes mellitus ([facility] Chronic diastolic heart failure ([facility]) Chronic diastolic heart failure Bilateral lower extremity edema Morbid (severe) obesity due to excess calories ([facility]) Type 2 diabetes mellitus with complication, with long-term current use of insulin ([facility] Anxiety and depression ([facility]) Cigarette nicotine dependence without complication Encounter for screening mammogram for malignant neoplasm of breast Insomnia Insomnia, unspecified Non-seasonal allergic rhinitis, unspecified trigger Type 2 diabetes mellitus with unspecified complications Vitamin D deficiency, unspecified Gastro-esophageal reflux disease without esophagitis PAD (peripheral artery disease) ([facility]) Unspecified peripheral vascular disease Gastroesophageal reflux disease, unspecified whether esophagitis present Venous ulcer of right leg ([facility]) Cellulitis of left lower extremity- Primary COPD exacerbation ([facility]) Obstructive chronic bronchitis with exacerbation Primary hypertension ([facility]) Unspecified essential hypertension Pulmonary hypertension ([facility]) Other chronic pulmonary heart diseases Morbid (severe) obesity due to excess calories ([facility]) Type 2 diabetes mellitus with complication, with long-term current use of insulin ([facility]) Anxiety and depression ([facility]) Fever, unspecified fever cause documented in this encounter [facility] HealthcareEvaluation note* Diagnosis Obstructive sleep apnea- Primary Obstructive sleep apnea (adult) (pediatric) Pulmonary emphysema, unspecified emphysema type (HCC) Primary hypertension Unspecified essential hypertension Type 2 diabetes mellitus with complication, with long-term current use of insulin ([facility]) Anxiety and depression Bilateral lower extremity edema Pulmonary emphysema, unspecified emphysema type (HCC)- Primary Primary hypertension Unspecified essential hypertension Class 3 severe obesity with serious comorbidity and body mass index (BMI) of 50.0 to 59.9 in adult,unspecified obesity type ([facility]) Obstructive sleep apnea Obstructive sleep apnea (adult) (pediatric) Pulmonary hypertension (HCC) Other chronic pulmonary heart diseases Tobacco user Tobacco use disorder Cardiomegaly Primary hypertension- Primary Unspecified essential hypertension Gastroesophageal reflux disease, unspecified whether esophagitis present Type 2 diabetes mellitus with complication, with long-term current use of insulin ([facility]) Mixed hyperlipidemia Mixed hyperlipidemia Tobacco user Tobacco [...] current use of insulin ([facility]) Class 3 severe obesity with serious comorbidity and body mass index (BMI) of 50.0 to 59.9 in adult,unspecified obesity type ([facility]) Tobacco user Tobacco use disorder Other headache [...] with type 2 diabetes mellitus ([facility]) Pulmonary emphysema, unspecified emphysema type ([facility]) Critical limb ischemia of right lower extremity ([facility]) PAD (peripheral artery disease) Unspecified peripheral vascular disease Gastroesophageal reflux disease, unspecified whether esophagitis present Bilateral lower extremity edema Venous ulcer of right leg (HCC) Type 2 diabetes mellitus with complication, with long-term current use of insulin ([facility]) Tobacco user Tobacco use disorder Encounter for smoking cessation counseling Kidney stone Calculus of kidney Adrenal mass 1 cm to 4 cm in diameter ([facility]) Radiculopathy, lumbar region Thoracic or lumbosacral neuritis or radiculitis, unspecified Non-seasonal allergic rhinitis, unspecified trigger Type 2 diabetes mellitus with unspecified complications ([facility]) Anxiety and depression- Primary Morbid (severe) obesity due to excess calories ([facility]) Body mass index (BMI) 50.0-59.9, adult ([facility]) Malignant neoplasm of cervix uteri, unspecified ([facility]) Diabetic polyneuropathy associated with type 2 diabetes mellitus ([facility]) Chronic diastolic heart failure ([facility]) Chronic diastolic heart failure Primary hypertension Unspecified essential hypertension 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 ([facility]) Gastroesophageal reflux disease, unspecified whether esophagitis present Bilateral lower extremity edema Type 2 diabetes mellitus with complication, with long-term current use of insulin ([facility]) Tobacco user Tobacco use disorder Mixed hyperlipidemia Mixed hyperlipidemia Gout, unspecified cause, unspecified chronicity, unspecified site Vitamin deficiency Unspecified vitamin deficiency Gastro-esophageal reflux disease without esophagitis Edema, unspecified Edema Hyperlipidemia, unspecified Encounter for smoking cessation counseling Venous ulcer of right leg ([facility]) Antibiotic-induced yeast infection Primary hypertension- Primary Unspecified essential hypertension Diabetic polyneuropathy associated with type 2 diabetes mellitus (HCC) Chronic diastolic heart failure (HCC) Chronic diastolic heart failure Bilateral lower extremity edema Morbid (severe) obesity due to excess calories ([facility]) Type 2 diabetes mellitus with complication, with long-term current use of insulin ([facility]) Anxiety and depression Cigarette nicotine dependence without complication Encounter for screening mammogram for malignant neoplasm of breast Insomnia Insomnia, unspecified Non-seasonal allergic rhinitis, unspecified trigger Type 2 diabetes mellitus with unspecified complications ([facility]) Vitamin D deficiency, unspecified Gastro-esophageal reflux disease [...] excess calories ([facility]) Type 2 diabetes mellitus with complication, with [...] excess calories ([facility]) Type 2 diabetes mellitus with hyperglycemia, with long-term current use of insulin ([facility]) documented in this encounter [facility] [...] obesity type ([facility]) Obstructive sleep apnea Obstructive sleep apnea (adult) [...] with type 2 diabetes mellitus ([facility]) Gout, unspecified cause, unspecified chronicity, unspecified site [...] complications (HCC) Pulmonary emphysema, unspecified emphysema type ([facility]) Moderate persistent asthma without complication (HCC) Primary hypertension Unspecified essential hypertension Type 2 diabetes mellitus with complication, with long-term current use of insulin ([facility]) Class 3 severe obesity with serious comorbidity and body mass index (BMI) of 50.0 to 59.9 in adult,unspecified obesity type ([facility]) Tobacco user Tobacco use disorder Other headache syndrome Malignant neoplasm of cervix uteri, unspecified (HCC) Other specified disorders of adrenal gland (HCC) Major depressive disorder, single episode, mild Major depressive disorder, single episode, mild Non-pressure chronic ulcer of other part of left lower leg with fat layer exposed ([facility]) Chronic respiratory failure, unspecified whether with hypoxia [...] Pulmonary emphysema, unspecified emphysema type ([facility]) Critical limb ischemia of right lower extremity ([facility]) PAD (peripheral artery disease) Unspecified peripheral vascular disease Gastroesophageal reflux disease, unspecified whether esophagitis present Bilateral lower extremity edema Venous ulcer of right leg (HCC) Type 2 diabetes mellitus with complication, with long-term current use of insulin ([facility]) Tobacco user Tobacco use disorder Encounter for smoking cessation counseling Kidney stone Calculus of kidney Adrenal mass 1 cm to 4 cm in diameter ([facility]) Radiculopathy, lumbar region Thoracic or lumbosacral neuritis or radiculitis, unspecified Non-seasonal allergic rhinitis, unspecified trigger Type 2 diabetes mellitus with unspecified complications ([facility]) Anxiety and depression- Primary Morbid (severe) obesity due to excess calories ([facility]) Body mass index (BMI) 50.0-59.9, adult ([facility]) Malignant neoplasm of cervix uteri, unspecified ([facility]) Diabetic polyneuropathy associated with type 2 diabetes mellitus ([facility]) Chronic diastolic heart failure ([facility]) Chronic diastolic heart failure Primary hypertension Unspecified essential hypertension 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 ([facility]) Gastroesophageal reflux disease, unspecified whether esophagitis present Bilateral lower extremity edema Type 2 diabetes mellitus with complication, with long-term current use of insulin ([facility]) Tobacco user Tobacco use disorder Mixed hyperlipidemia Mixed hyperlipidemia Gout, unspecified cause, unspecified chronicity, unspecified site Vitamin deficiency Unspecified vitamin deficiency Gastro-esophageal reflux disease without esophagitis Edema, unspecified Edema Hyperlipidemia, unspecified Encounter for smoking cessation counseling Venous ulcer of right leg ([facility]) Antibiotic-induced yeast infection Primary hypertension- Primary Unspecified essential hypertension Diabetic polyneuropathy associated with type 2 diabetes mellitus (HCC) Chronic diastolic heart failure (HCC) Chronic diastolic heart failure Bilateral lower extremity edema Morbid (severe) obesity due to excess calories ([facility]) Type 2 diabetes mellitus with complication, with long-term current use of insulin ([facility]) Anxiety and depression Cigarette nicotine dependence without complication Encounter for screening mammogram for malignant neoplasm of breast Insomnia Insomnia, unspecified Non-seasonal allergic rhinitis, unspecified trigger Type 2 diabetes mellitus with unspecified complications ([facility]) Vitamin D deficiency, unspecified Gastro-esophageal reflux disease [...] current use of insulin ([facility]) Anxiety and depression Fever, unspecified fever cause Encounter for subsequent annual wellness visit (AWV) in Medicare patient- Primary Mixed hyperlipidemia Mixed hyperlipidemia Type 2 diabetes mellitus with complication, with long-term current use of insulin ([facility]) Bilateral lower extremity edema Gastro-esophageal reflux disease without esophagitis Chronic diastolic heart failure (HCC) Chronic diastolic heart failure Primary hypertension Unspecified essential hypertension Pulmonary hypertension (HCC) Other chronic pulmonary heart diseases Diabetic polyneuropathy associated with type 2 diabetes mellitus ([facility]) Pulmonary emphysema, unspecified emphysema type ([facility]) Moderate persistent asthma without complication ([facility]) Insomnia Insomnia, unspecified Non-seasonal allergic rhinitis, unspecified trigger Type 2 diabetes mellitus with unspecified complications ([facility]) Anxiety and depression Antibiotic-induced yeast infection Chronic obstructive pulmonary disease, unspecified ([facility]) Hyperlipidemia, unspecified Vaginal yeast infection Candidiasis of vulva and vagina Morbid (severe) obesity due to excess calories ([facility]) Encounter for dietary consultation- Primary Type 2 diabetes mellitus with hyperglycemia, with long-term current use of insulin ([facility]) Vitamin D deficiency Primary hypertension Unspecified essential hypertension Insulin long-term use ([facility]) Encounter for long-term (current) use of insulin Hyperlipemia, mixed Mixed hyperlipidemia Microalbuminuria Proteinuria Class 3 severe obesity due to excess calories with serious comorbidity and body mass index (BMI) of50.0 to 59.9 in adult ([facility]) documented in this encounter [facility] HealthcareEvaluation note* Diagnosis Obstructive sleep apnea- Primary Obstructive sleep apnea (adult) (pediatric) Pulmonary emphysema, unspecified emphysema type ([facility]) Primary hypertension Unspecified essential hypertension Type 2 diabetes mellitus with complication, with long-term current use of insulin ([facility]) Anxiety and depression Bilateral lower extremity edema [...] complications (HCC) Pulmonary emphysema, unspecified emphysema type ([facility]) Moderate persistent asthma without complication (HCC) Primary hypertension Unspecified essential hypertension Type 2 diabetes mellitus with complication, with long-term current use of insulin ([facility]) Class 3 severe obesity with serious comorbidity [...] with type 2 diabetes mellitus ([facility]) Pulmonary emphysema, unspecified emphysema type ([facility]) Critical limb ischemia of right lower extremity ([facility]) PAD (peripheral artery disease) Unspecified peripheral vascular disease Gastroesophageal reflux disease, unspecified whether esophagitis present Bilateral lower extremity edema Venous ulcer of right leg ([facility]) Type 2 diabetes mellitus with complication, with long-term current use of insulin ([facility]) Tobacco user Tobacco use disorder Encounter for smoking cessation counseling Kidney stone Calculus of kidney Adrenal mass 1 cm to 4 cm in diameter ([facility]) Radiculopathy, lumbar region Thoracic or lumbosacral neuritis or radiculitis, unspecified Non-seasonal allergic rhinitis, unspecified trigger Type 2 diabetes mellitus with unspecified complications ([facility]) Anxiety and depression- Primary Morbid (severe) obesity due to excess calories ([facility]) Body mass index (BMI) 50.0-59.9, adult ([facility]) Malignant neoplasm of cervix uteri, unspecified ([facility]) Diabetic polyneuropathy associated with type 2 diabetes mellitus ([facility]) Chronic diastolic heart failure (HCC) Chronic diastolic heart failure Primary hypertension Unspecified essential hypertension 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 ([facility]) Gastroesophageal reflux disease, unspecified whether esophagitis present Bilateral lower extremity edema Type 2 diabetes mellitus with complication, with long-term current use of insulin ([facility]) Tobacco user Tobacco use disorder Mixed hyperlipidemia Mixed hyperlipidemia Gout, unspecified cause, unspecified chronicity, unspecified site Vitamin deficiency Unspecified vitamin deficiency Gastro-esophageal reflux disease without esophagitis Edema, unspecified Edema Hyperlipidemia, unspecified Encounter for smoking cessation counseling Venous ulcer of right leg ([facility]) Antibiotic-induced yeast infection Primary hypertension- Primary Unspecified essential hypertension Diabetic polyneuropathy associated with type 2 diabetes mellitus (HCC) Chronic diastolic heart failure (HCC) Chronic diastolic heart failure Bilateral lower extremity edema Morbid (severe) obesity due to excess calories ([facility]) Type 2 diabetes mellitus with complication, with long-term current use of insulin ([facility]) Anxiety and depression Cigarette nicotine dependence without [...] excess calories ([facility]) Tobacco user Tobacco use disorder Encounter for smoking cessation counseling documented in this encounter [facility] HealthcareEvaluation noteNo assessment information availableHolzer Hospital Work Phone: History general Narrative - Reported* Type Description Date Medical History diabetes mallitus Medical HistoryCOPDMedical HistoryADRENAL MASS 1 CM TO 4 CM IN DIAMETERMedical HistoryARTHRITISMedical HistoryASTHMAMedical HistoryHEADACHEMedical History HYPERTENSIONMedical HistoryKIDNEY STONESMedical HistoryLEFT FLANK PAINMedical HistoryMIXED INCONTINENCEMedical HistoryPROTEINURIAMedical HistorySMOKERSurgical [id number] Historytoe surgerySurgical HistoryLAPAROSCOPIC CHOLECYSTECTOMYHospitalization [id number] HistorySEE ABOVE [employer] Other Hospital course Narrative No data available for this section [facility] progress note No data available for this section [facility] reason for referral (narrative) , Referral to Dr. Cortés Referred by: REGLA PHIPPS, Elbert Joya [facility] reason for referral (narrative)No reason for referral information availableHolzer Hospital Work Phone: Advance Directives No Advanced Directives Records FoundDocuments on File TypeDate RecordedPatient RepresentativeExplanationAdvance Directives and Living WillPower of Clay Press Operator Advance Directive Response Recorded Date/ Time [...] section and content) DATE CREATED AUTHOR 10/30/2019 [facility] DATE CREATED AUTHOR AUTHOR'S ORGANIZ ATION 09/15/2020 [facility] DATE CREATED AUTHOR AUTHOR'S ORGANIZ ATION 12/19/2022 [facility] DATE CREATED AUTHOR AUTHOR'S ORGANIZ ATION 01/30/2025 [facility] DATE CREATED AUTHOR AUTHOR'S ORGANIZ ATION 04/12/2025 [facility] DATE CREATED AUTHOR AUTHOR'S ORGANIZ ATION 04/29/2025 [facility] DATE CREATED AUTHOR AUTHOR'S ORGANIZ ATION 05/21/2025 [facility] Care Team (unrecognized sect ion and content) Team MemberRelationshipSpecialtyStart DateEnd Date Ty Amin MD PCP - GeneralFamily Medicine01/05/23Team MemberRelationshipSpecialtyStart DateEnd Date Ty Amin MD PCP - GeneralFamily Medicine01/05/23Team MemberRelationshipSpecialtyStart DateEnd Date Ty Amin MD [address] [place] [address] PCP - GeneralFamily Medicine09/20/23 Mckayla Blas NP [address] [place] [address] PCP - / Mckayla Blas NP [address] [place] [address] Nurse PractitionerFamily Medicine09/20/23Team MemberRelationshipSpecialtyStart DateEnd Date Ty Amin MD [address] [place] [address] PCP - [facility]09/20/23 Mckayla Blas NP [address] [place] [address] PCP [facility]/ Mckayla Blas NP [address] [place] [address] Nurse Pract[facility]erCity [facility], [place]09/20/23Team MemberRelationshipSpecialtyStart DateEnd Date Ty Amin MD [address] [place] [address] PCP - [facility]09/20/23 Mckayla Blas NP [address] [place] [address] [place] [address]/ Mckayla Blas NP [address] [place] [address] Nurse Pract[facility]er[facility], [place]09/20/23Team MemberRelationshipSpecialtyStart DateEnd Date Ty Amin MD [address] [place] [address] PCP - [facility]09/20/23 Mckayla Blas NP [address] [place] [address] PCP - [facility]/ Mckayla Blas NP [address] [place] [address] Nurse Pract[facility]er[facility], [place]09/20/23Team MemberRelationshipSpecialtyStart DateEnd Date Ty Amin MD [address] [place] [address] PCP - [facility] [place]09/20/23 Mckayla Blas NP [address] [place] [address] PCP [facility] Mckayla Blas NP [address] [place] [address] Nurse Pract[facility]er[facility], [place]09/20/23Team MemberRelationshipSpecialtyStart DateEnd Date Ty Amin MD [address] [place] [address] [facility]/23 Mckayla Blas NP [address] [place] [address] PCP [facility] Mckayla Blas NP [address] [place] [address] [facility] Medicine09/20/23Team MemberRelationshipSpecialtyStart DateEnd Date Ty Amin MD [address] [place] [address] PCP - [facility]09/20/23 Mckayla Blas NP [address] [place] [address] PCP [facility]/ Mckayla Blas NP [address] [place] [address] Nurse [facility], [place]09/20/23Team MemberRelationshipSpecialtyStart DateEnd Date Ty Amin MD [address] [place] [address] PCP - [facility]09/20/23 Mckayla Blas, SILVANO [address] [place] [address] [place] [address]/ Mckayla Blas NP [address] [place] [address] Nurse Pract[facility]er[facility], [place]09/20/23Team MemberRelationshipSpecialtyStart DateEnd Date Ty Amin MD [address] [place] [address] PCP - Generalmily Medicine09/20/23 Mckayla Blas NP [address] [place] [address] [place] [address]/ Mckayla Blas NP [address] [place] [address] [facility] Medicine09/20/23Team MemberRelationshipSpecialtyStart DateEnd Date Ty Amin MD [address] [place] [address] PCP - [facility]09/20/23 Mckayla Blas NP [address] [place] [address] [place] [address]/ Mckayla Blas NP [address] [place] [address] Nurse Pract[facility]er[facility], [place]09/20/23Team MemberRelationshipSpecialtyStart DateEnd Date Ty Amin MD [address] [place] [address] PCP - [facility]09/20/23 Mckayla Blas NP [address] [place] [address] [place] [address]/ Mckayla Blas NP [address] [place] [address] Nurse [facility], [place]09/20/23Team MemberRelationshipSpecialtyStart DateEnd Date Ty Amin MD [address] [place] [address] PCP - [facility] [place]09/20/23 Mckayla Blas NP [address] [place] [address] [place] [address] Mckayla Blas NP [address] [place] [address] Nurse Pract[facility]er[facility], [place]09/20/23Team MemberRelationshipSpecialtyStart DateEnd Date Ty Amin MD [address] [place] [address] PCP - [facility]09/20/23 Mckayla Blas NP [address] [place] [address] [place] [address] Mckayla Blas NP [address] [place] [address] Nurse [facility], [place]09/20/23Team MemberRelationshipSpecialtyStart DateEnd Date Ty Amin MD [address] [place] [address] PCP - [facility]09/20/23 Mckayla Blas NP [address] [place] [address] [place] [address]/ Mckayla Blas NP [address] [place] [address] Nurse Pract[facility], [place]09/20/23Team MemberRelationshipSpecialtyStart DateEnd Date Ty Amin MD [address] [place] [address] PCP - [facility]09/20/23 Mckayla Blas NP [address] [place] [address] [place] [address] Mckayla Blas NP [address] [place] [address] [facility] Medicine09/20/23Team MemberRelationshipSpecialtyStart DateEnd Date Ty Amin MD [address] [place] [address] PCP - [facility]09/20/23 Mckayla Blas NP [address] [place] [address] [facility]/ Mckayla Blas NP [address] [place] [address] Nurse Practitioner[facility], [place]09/20/23Team MemberRelationshipSpecialtyStart DateEnd Date Ty Amin MD [address] [place] [address] PCP - [facility]09/20/23 Mckayla Blas NP [address] [place] [address] [place] [address]/ Mckayla Blas NP [address] [place] [address] Nurse Pract[facility]er[facility], [place]09/20/23Team MemberRelationshipSpecialtyStart DateEnd Date Ty Amin MD [address] [place] [address] PCP - [facility]09/20/23 Mckayla Blas NP [address] [place] [address] [place] [address]/ Mckayla Blas NP [address] [place] [address] [facility] Medicine09/20/23Team MemberRelationshipSpecialtyStart DateEnd Date Ty Amin MD [address] [place] [address] PCP - [facility] Medicine09/20/23 Mckayla Blas, SILVANO [address] [place] [address] PCP - [facility]/ Mckayla Blas NP [address] [place] [address] Nurse Practitioner[facility], [place]09/20/23Te MemberRelationshipSpecialtyStart DateEnd Date Ty Amin MD [address] [place] [address] PCP - [facility]09/20/23 Mckayla Blas NP [address] [place] [address] [facility]CP [facility] [facility] Mckayla Blas NP [address] [place] [address] Nurse PractitionerCity [facility], [place]09/20/23Te MemberRelationshipSpecialtyStart DateEnd Date Ty Amin MD [address] [place] [address] PCP - GeneralFamily Medicine09/20/23 Mckayla Blas NP [address] [place] [address] [facility]09/20/23Team MemberRelationshipSpecialtyStart DateEnd Date yT Amin MD [address] [place] [address] PCP - Generalmily Medicine09/20/23 Mckayla Blas NP [address] [place] [address] [facility] Medicine09/20/23Team MemberRelationshipSpecialtyStart DateEnd Date Ty Amin MD [address] [place] [id number] [facility] - [facility]09/20/23 Mckayla Blas NP [address] [place] [address] [facility] Medicine09/20/23Team MemberRelationshipSpecialtyStart DateEnd Date Ty Amin MD [address] [place] [address] PCP - Generalmily Medicine09/20/23 Mckayla Blas NP [address] [place] [address] Nurse Pract[facility]erCity [facility], [place]09/20/23Team MemberRelationshipSpecialtyStart DateEnd Date Ty Amin MD [address] [place] [address] PCP - [facility]09/20/23 Mckayla Blas NP [address] [place] [phone] Nurse PractitionerCity [facility], [place]09/20/23 Team Status: Active Member Role Status Dates Mckayla Blas GAMEPLAY ENGINEER-C Primary Care Provider Active Team Status: Active Member Role Status Dates Mckayla Blas , GAMEPLAY ENGINEER-C Primary Care Provider Active Start: March 25, 2025 Price Arora DOAttending ProviderActiveStart: March 25, 2025 Team Status: Active Member Role Status Dates Mckayla Blas GAMEPLAY ENGINEER-C Primary Care Provider Active Start: March 26, 2025 Darrell Wellsending ProviderActiveStart: March 26, 2025 Team Status: Inactive Member Role Status Dates Mckayla Blas GAMEPLAY ENGINEER-C Primary Care Provider Active Start: April 06, 2025 End: April 06, 2025Mckayla Blas GAMEPLAY ENGINEER-CAttending ProviderActiveStart: April 06, 2025 End: April 06, 2025 Team Status: Active Member Role/Relationship Status Dates Mckayla Blas , GAMEPLAY ENGINEER-C Primary Care Provider Active Team Status: Active Member Role/Relationship Status Dates Mckayla Blas , GAMEPLAY ENGINEER-C Primary Care Provider Active Start: March 25, 2025 Price Arora DOAttbrandee ProviderActiveStart: March 25, 2025 Team Status: Active Member Role/Relationship Status Dates Mckayla Blas , GAMEPLAY ENGINEER-C Primary Care Provider Active Start: March 26, 2025 Darrell Wellsending ProviderActiveStart: March 26, 2025 Team Status: Inactive Member Role/Relationship Status Dates Mckayla Blas , GAMEPLAY ENGINEER-C Primary Care Provider Active Start: April 06, 2025 End: April 06, 2025Mckayla Blas NP-CAttending ProviderActiveStart: April 06, 2025 End: April 06, 2025 Team Status: Inactive Member Role/Relationship Status Dates Mckayla Blas NP-C Primary Care Provider Active Start: April 29, 2025 End: April 29, 2025Mckayla Blas NP-Louann ProviderActiveStart: April 29, 2025 End: April 29, 2025Team MemberRelationshipSpecialtyStart DateEnd Date Ty Amin MD PCP - [facility]09/20/23 Mckayla Blas NP [address] [place] [phone] PCP - [facility]/ Mckayla Blas NP Nurse [facility]09/20/23Team MemberRelationshipSpecialtyStart DateEnd Date Ty Amin MD PCP - [facility] Medicine Ty Amin MD PCP - [facility]09/20/23 Mckayla Blas NP [address] [place] [phone] PCP - [facility]/ Mckayla Blas NP Nurse PractitionerCity [facility], [place]09/20/23Team MemberRelationshipSpecialtyStart DateEnd Date Ty Amin MD PCP - [facility]09/20/23 Mckayla Blas NP [address] [place] [address] PCP - [facility]//12/31 Mckayla Blas NP Nurse PractitionerCity [facility] Hope, [place]09/20/23 REASON FOR VISIT (unrecogniz ed section and [...] BE BASED ON THE PRIMARY CLINICAL RECORDS. [employer] provides no warranty or guarantee of the accuracy or completeness of information in this document.
== END 2025-06-05 10:01 | disposition home or self-care (01) ==
LOC: WC 06-08 16:17
PROVIDERS: PCP Nurse Practitioner; Visit Provider Physician Assistant
DX: I87.332 Chronic venous hypertension (idiopathic) with ulcer and inflammation of left lower extremity (principal); L97.822 Non-pressure chronic ulcer of other part of left lower leg with fat layer exposed; I87.311 Chronic venous hypertension (idiopathic) with ulcer of right lower extremity; L97.812 Non-pressure chronic ulcer of other part of right lower leg with fat layer exposed
CPT/HCPCS: 29581

== ENCOUNTER 2025-06-08 14:00 | Outpatient (OUT) | payer MEDICARE, SELFPAY ==
--- OUTSIDE RECORDS SUMMARY | 2025-06-08 16:40 | XMS_ITS | CCD ---
Author Organization [facility] Care Team Providers Care Director Telemetry Name Role Phone James Benavidez Primary Care Provider [phone] JAMES BENAVIDEZ Primary Care Unavailable SHENDGE, VITHAL Admitting Unavailable SHENDGE, VITHAL Attending Unavailable AICHHOLZ, MCKAYLA Primary Care Unavailable AICHHOLZ, MCKAYLA Referring Unavailable AICHHOLZ, MCKAYLA J Primary Care Physician [phone] Tico, Stephanie Unavailable OLE RAMIREZ Attending Unavailable OLE RAMIREZ Consulting Unavailable AICHHOLZ, CRAB BUTCHER MCKAYLA Primary Care Unavailable OLE RAMIREZ Admitting Unavailable ANTONY SHRESTHA Consulting Unavailable ALONDRA ., JACQUELINE Admitting Unavailable ALONDRA ., JACQUELINE Attending Unavailable AICHHOLZ, CRAB BUTCHER MCKAYLA Primary Care Unavailable AFSANEH Loera, DR BOLANOS Consulting Unavailable MARYANNE POWER Consulting Unavailable GLENN KERR Consulting Unavailable YOMAIRA KERR Consulting Unavailable HATTIE GOFF Consulting Unavailable ALONDRA ., JACQUELINE Consulting Unavailable TICO, STEPHANIE Attending Unavailable TICO, STEPHANIE Consulting Unavailable AICHHOLZ, CRAB BUTCHER MCKAYLA Primary Care Unavailable TICO, STEPAHNIE Admitting Unavailable REGLA ., DR DUMONT Admitting Unavailable AICHHOLZ, CRAB BUTCHER MCKAYLA Primary Care Unavailable REGLA ., DR DUMONT Attending Unavailable ARAUZ ., DR DUMONT Consulting Unavailable COLLIN HUERTAS Consulting Unavailable CECILIA KAUFMAN Admitting Unavailable CECILIA KAUFMAN Attending Unavailable AICHHOLZ, CRAB BUTCHER MCKAYLA Primary Care Unavailable COMFORT PRETTY Attending Unavailable COMFORT PRETTY Admitting Unavailable AICHHOLZ, CRAB BUTCHER MCKAYLA Primary Care Unavailable AICHHOLZ, CRAB BUTCHER MCKAYLA Admitting Unavailable AICHHOLZ, CRAB BUTCHER MCKAYLA Primary Care Unavailable AICHHOLZ, CRAB BUTCHER MCKAYLA Attending Unavailable AICHHOLZ, CRAB BUTCHER MCKAYLA Consulting Unavailable LAKSHMIPATHY ., NARENDRANATH Attending Anette vailable LAKSHMIPATHY ., NARENDRANATH Consulting Anette vailable LAKSHMIPATHY ., NARENDRANATH Admitting Anette vailable AICHHOLZ, CRAB BUTCHER MCKAYLA Primary Care Unavailable VALENZUELA ., GIL Consulting Unavailable MORTENSEN ., DR CHAPARRO Aguillon Attending Unavailable MORTENSEN ., DR CHAPARRO Aguillon Admitting Unavailable AICHHOLZ, CRAB BUTCHER MCKAYLA Primary Care Unavailable VALENZUELA ., GIL Consulting Unavailable MORTENSEN ., DR CHAPARRO Aguillon Admitting Unavailable AICHHOLZ, CRAB BUTCHER MCKAYLA Primary Care Unavailable MORTENSEN ., DR CHAPARRO Aguillon Attending Unavailable HALKER ., SUBHASH Consulting Unavailable LAKSHMIPATHY ., NARENDRANATH Admitting Anette vailable LAKSHMIPATHY ., NARENDRANATH Attending Anette vailable AICHHOLZ, CRAB BUTCHER MCKAYLA Primary Care Unavailable MORTENSEN ., DR CHAPARRO Aguillon Attending Unavailable MORTENSEN ., DR CHAPARRO Aguillon Admitting Unavailable VALENZUELA ., GIL Consulting Unavailable AICHHOLZ, CRAB BUTCHER MCKAYLA Primary Care Unavailable VALENZUELA ., GIL Consulting Unavailable MORTENSEN ., DR CHAPARRO Aguillon Attending Unavailable MORTENSEN ., DR CHAPARRO Aguillon Admitting Unavailable AICHHOLZ, CRAB BUTCHER MCKAYLA Primary Care Unavailable HATTIE BRODERICK Attending Unavailable HATTIE BRODERICK Admitting Unavailable AICHHOLZ, CRAB BUTCHER MCKAYLA Primary Care Unavailable AICHHOLZ, CRAB BUTCHER MCKAYLA Admitting Unavailable AICHHOLZ, CRAB BUTCHER MCKAYLA Consulting Unavailable AICHHOLZ, CRAB BUTCHER MCKAYLA Primary Care Unavailable AICHHOLZ, CRAB BUTCHER MCKAYLA Attending Unavailable AICHHOLZ, CRAB BUTCHER MCKAYLA Primary Care Unavailable MISC, DR LESLIE Admitting Unavailable MISC, DR LESLIE Attending Unavailable MISC, DR LESLIE Consulting Unavailable DIAB ., MARIANO Admitting Unavailable DIAB ., MARIANO Attending Unavailable DIAB ., MARIANO Consulting Unavailable AICHHOLZ, CRAB BUTCHER MCKAYLA Primary Care Unavailable RASTEGAR, RICCO Consulting Unavailable AICHHOLZ, CRAB BUTCHER MCKAYLA Admitting Unavailable AICHHOLZ, CRAB BUTCHER MCKAYLA Primary Care Unavailable AICHHOLZ, CRAB BUTCHER MCKAYLA Attending Unavailable AICHHOLZ, CRAB BUTCHER MCKAYLA Consulting Unavailable DR PATRICIA VELOZ Consulting Unavailable TAMLYN ., CECILIA Attending Unavailable TAMLYN ., CECILIA Admitting Unavailable DR PATRICIA VELOZ Consulting Unavailable AICHHOLZ, CRAB BUTCHER MCKAYLA Primary Care Unavailable TAMLYN ., CECILIA Consulting Unavailable MORTENSEN ., DR CHAPARRO Aguillon Attending Unavailable FESTUS ., DR CHAPARRO Aguillon Consulting Unavailable FESTUS ., DR CHAPARRO Aguillon Admitting Unavailable AICHHOLZ, CRAB BUTCHER MCKAYLA Primary Care Unavailable HATTIE BRODERICK Attending Unavailable HATTIE BRODERICK Consulting Unavailable HATTIE BRODERICK Admitting Unavailable AICHHOLZ, CRAB BUTCHER MCKAYLA Primary Care Unavailable HATTIE BAUTISTA Unavailable AICHHOLZ, CRAB BUTCHER MCKAYLA Admitting Unavailable AICHHOLZ, CRAB BUTCHER MCKAYLA Attending Unavailable AICHHOLZ, CRAB BUTCHER MCKAYLA Consulting Unavailable AICHHOLZ, CRAB BUTCHER MCKAYLA Primary Care Unavailable Ty Amin MD Primary Care Provider Ty Amin MD Primary Care Provider Aichholz CULLED FRUIT PACKER, Mckayla Unavailable Aichholz CULLED FRUIT PACKER, Mckayla Unavailable AICHHOLZ, MCKAYLA Attending Unavailable LIBBY, AHMAD F Attending Unavailable AICHHOLZ, MCKAYLA Attending Unavailable AICHHOLZ, MCKAYLA Attending Unavailable AICHHOLZ, MCKAYLA Attending Unavailable LIBBY, AHMAD F Attending Unavailable AICHHOLZ, MCKAYLA Attending Unavailable LIBBY, AHMAD F Attending Unavailable LIBBY, AHMAD F Referring Unavailable AICHHOLZ, MCKAYLA Attending Unavailable Aichholz CULLED FRUIT PACKER, Mckayla Unavailable Aichholz CULLED FRUIT PACKER-C, Mckayla J Primary Care Provider Price Arora DO Attending Provider [phone] Flynn Urias DPM Attending Provider [phone] Aichholz CULLED FRUIT PACKER-C, Mckayla J Attending Provider AMI ORO Attending Unavailable DAKOTAH BRIDGES Attending Unavailable Elbert ARAUZ Attending Unavailable GAVIOTA ADAMES Attending Unavailable Ty Amin MD Primary Care Provider [phone] Aichholz CULLED FRUIT PACKER, Mckayla Unavailable Aichholz CULLED FRUIT PACKER, Mckayla Unavailable Ty Amin MD Primary Care Provider Bob MANAGER LABORATORY-CRAB BUTCHER, Omero Lovell Attending Unav ailable Aichholz MANAGER LABORATORY-CRAB BUTCHER, Mckayla Lennon Primary Care Unava ilable Adonay DPM, Flynn Arzate Attending Unavailab le Adonay DPM, Flynn Arzate Attending Unavailab le Aichholz MANAGER LABORATORY-CRAB BUTCHER, Mckayla Lennon Primary Care Unava ilable Adonay DPM, Flynn Arzate Attending Unavailab le Adonay DPM, Flynn Arzate Attending Unavailab le Aichholz MANAGER LABORATORY-CRAB BUTCHER, Mckayla Lennon Primary Care Unava ilable Aichholz MANAGER LABORATORY-CRAB BUTCHER, Mckayla Lennon Primary Care Unava ilable Adonay DPM, Flynn Arzate Attending Unavailab le Aichholz MANAGER LABORATORY-CRAB BUTCHER, Mckayla Lennon Primary Care Unava ilable Bob MANAGER LABORATORY-CRAB BUTCHER, Omero Lovell Attending Unav ailable Aichholz MANAGER LABORATORY-CRAB BUTCHER, Mckayla Lennon Primary Care Unava ilable Adonay DPM, Flynn Arzate Attending Unavailab le Adonay DPM, Flynn Arzate Attending Unavailab le Bob MANAGER LABORATORY-CRAB BUTCHER, Omero Lovell Consulting Unav ailable Aichholz MANAGER LABORATORY-CRAB BUTCHER, Mckayla Lennon Primary Care Unava ilable Corinne Kellogg MD Attending Unavail able Obb MANAGER LABORATORY-CRAB BUTCHER, Omero Lovell Attending Unav ailable Adonay DPM, Fylnn Arzate Referring Unavailab le Allergies Allergy ClassificationReported Allergen(s)Allergy TypeDate of OnsetReaction(s) Facility (1 source)No Known Medication Allergies; Translations: [No Known Medication Allergies]Propensity to adverse reactions (disorder)[facility] Medications Current Medications MedicationDrug Class(es)DatesSig (Normalized)Sig (Original)0.5 ML tirzepatide 30 MG/ML Auto-Injector [Mounjaro] (1 source)Start: 47-98-6396haxdvu 15 mg by subcutaneous injection every week Mounjaro 15 mg/0.5 mL subcutaneous solution INJECT 15MG SUBCUTANEOUSLY ONCE A WEEK Start Date: 06/11/24 Status: Orderedacetaminophen 325 mg / HYDROcodone bitartrate 5 mg oral tablet (20 sources)Opioid AgonistStart: 87-15-7826abbahbypearlw-hydrocodone 325 mg-5 mg oral tablet Refill(s) 0 Start Date: 02/06/22 Status: OrderedStart: 12-13-2017 End: 85-39-3052tnzj 1 tablet by mouth every four hoursHydrocodone-Acetaminophen ([place]) 5-325 mg tablet Discontinued 1 TAB PO Q4H 15 0 December 13, 2017 April 05, 2025 12:52pm Fracture of humerus painStart: 32-23-4649jmtt 1 tablet by mouth every four to six hours as needed for painHYDROcodone-acetaminophen ([place]) 5-325 MG tablet 1 tablet 3 (three) times a day as needed for severe pain. Activetake 1 tablet by mouth twice daily as neededNorco 5-325 MG 1 tablet as needed Orally TWICE A DAY Activealbuterol 0.83 mg/ml inhalation solution (20 sources)beta2-Adrenergic AgonistStart: 03-93-2105xaox 2.5 mg by inhalation every four to six hours as neededStart: 22-78-8402jjjtjkgka 0.083% Inh Tracey 3 mL Refill(s) 0 [...] oral tablet (20 sources)Tricyclic AntidepressantStart: 02-06-2022 End: 03-97-9146atoz 1 tablet by mouth once daily at bedtimeaspirin 81 mg chewable tablet (20 sources)Platelet Aggregation Inhibitor, Nonsteroidal Anti-inflammatory Drug Start: 11-01-2023 End: 79-60-9872axew 1 tablet by mouth once dailyaspirin 81 MG chewable tablet Chew 81 mg in the morning. 0 Activebaclofen 10 mg oral tablet (20 sources)gamma-Aminobutyric Acid-ergic AgonistStart: 04-03-9691ekin 1 tablet by mouth every eight hours as neededStart: 61-20-7021kqsz 1 tablet by mouth in the morning, then take 1 tablet by mouth in the evening, then take 1 tablet by mouth at bedtimebaclofen (Lioresal) 10 MG tablet Take 10 mg by mouth in the morning and 10 mg in the evening and 10mg before bedtime. 06/24/2024 Tuswom21 actuat budesonide 0.16 mg/actuat / formoterol fumarate [...] tablet (20 sources)Histamine-1 Receptor AntagonistStart: 11-01-2023 End: 10-40-8587bktt 1 tablet by mouth once daily as neededtake 1 tablet by mouth in the morningcetirizine (ZyrTEC) 10 MG tablet Take 10 mg by mouth in the morning. 0 Activedapagliflozin 10 mg oral tablet (20 sources)Sodium-Glucose Cotransporter 2 InhibitorStart: 01-17-2024 End: 47-40-8236vydu 1 tablet by mouth once dailyStart: 08-14-2023 End: 63-72-5013wlhl 1 tablet by mouth in the morningdapagliflozin (Farxiga) 10 MG Indications: Type 2 diabetes mellitus with unspecified complications ( CMS/HCC) Take 1 tablet (10 mg) by mouth in the morning. 90 tablet 1 08/14/2023 11/12/2023 Activediclofenac sodium 75 mg delayed release oral tablet (20 sources)Nonsteroidal Anti-inflammatory DrugStart: 46-24-1329lydn 1 tablet by mouth twice daily0.5 ML dulaglutide 9 MG/ML Auto-Injector [Trulicity] (4 sources)GLP-1 Receptor AgonistStart: 12-57-7764Cvgnzwnwi Pen 4.5 mg/0.5 mL subcutaneous solution Refills(s) [...] sources)Serotonin and Norepinephrine Reuptake InhibitorStart: 11-01-2023 End: 75-54-8097bwso 1 capsule by mouth twice dailyStart: 07-23-2023 End: 53-70-2922nota 1 capsule by mouth in the morningDULoxetine (Cymbalta) [address] capsule Indications: Anxiety and depression (CMS/HCC) Take 1 capsule(60 mg) by mouth in the morning and 1 capsule (60 mg) before bedtime. Do not crush or chew.. 60 capsule 3 07/23/2023 08/22/2023 ActiveStart: 22-61-7527UGOqppuiyg 30 mg Cap-EC Refills(s) 0 Start Date: 02/06/22 Status: OrderedDULoxetine 30 mg Cap-EC (2 sources)Start: 66-33-9416WDDyivckzr 30 mg Cap-EC Refills(s) 0 Start Date: 02/06/22 Status: Orderedergocalciferol 1.25 mg oral capsule (20 sources)Provitamin D2 CompoundStart: 20-66-0349Zgjkg: 01-16-2025 End: 64-73-2633etea 1 capsule by mouth every weekergocalciferol (Vitamin D2) 1.25 MG (48697 UT) capsule Indications: Vitamin D deficiency, unspecified Take 1 capsule (1.25 mg) by mouth 1 (one) time per week 12 capsule 1 01/16/2025 04/10/2025 ActiveStart: 10-27-2024 End: 15-37-1962riyq 1 capsule by mouth two times weeklyergocalciferol (Vitamin D2) 1.25 MG (41196 UT) capsule Indications: Vitamin D deficiency, unspecified Take 1 capsule (1.25 mg) by mouth 2 (two) times a week 24 capsule 1 10/27/2024 01/19/2025 ActiveStart: 04-06-2024 End: 31-99-6013wbdu 1 capsule by mouth every weekergocalciferol (Vitamin D2) 1.25 MG (76460 UT) capsule Indications: Vitamin D deficiency, unspecified TAKE 1 CAPSULE BY MOUTH ONE TIME PER WEEK 12 capsule 1 04/06/2024 10/27/2024 Discontinued (Reorder)fluconazole 150 mg oral tablet (20 sources)Azole AntifungalStart: 08-27-2024 End: 46-08-5086nzxwfkkecew (Diflucan) 150 MG tablet Indications: Antibiotic- induced yeast infection One time dose,repeat in 3 days . Do not take cholesterol pill while taking this medication. Once finished then resume 2 tablet 1 01/26/2025 ActiveStart: 08-17-2023 End: 32-23-1388rukuuvcllmw (Diflucan) 150 MG tablet Indications: Vaginal yeast infection Take 1 tablet (150 mg) bymouth in the morning for 2 days. One time dose, may repeat in 3 days. 2 tablet 1 08/17/2023 08/19/2023 Active End: 81-03-9441ymjwvedahgb (Diflucan) 150 MG tablet Take 200 mg by mouth in the morning. 0 08/17/2023 Discontinued(Reorder)furosemide 20 mg oral tablet (20 sources)Loop DiureticStart: 09-22-2024 End: 77-21-4829ovaq 1 tablet by mouth once dailyStart: 04-06-2024 End: 94-50-9091mpob 1 tablet by mouth once dailyfurosemide (Lasix) 40 MG tablet Indications: Bilateral lower extremity edema Take 1 tablet (40 mg) by mouth Daily 90 tablet 1 04/06/2024 ActiveStart: 12-13-2017 End: 11-52-5117iuey 1 tablet by mouth once daily as [...] oral tablet (20 sources)Arteriolar VasodilatorStart: 09-13-2023 End: 62-81-6733taml 1 tablet by mouth twice dailysodium hypochlorite 2.5 mg/ml topical solution (14 sources)Start: 14-35-9052WoTctr 0.25 % external solution APPLY TO GAUZE [...] with supper. 0 ActiveNovoLog (5 sources)Insulin AnalogStart: 15-00-9953MotxGms SubCutaneous, TIDAC, Refills(s) 0 Start Date: 02/06/22 Status: OrderedNovoLOG 100 UNIT/ML as directed Injection SLIDING SCALE BEFORE EACH MEAL Active3 ml insulin glargine 100 unt/ml pen injector (20 sources)Insulin AnalogStart: 16-44-4317Yzvbf: 81-37-0684zytengy glargine (Lantus SoloStar) 100 UNIT/ML pen Indications: Type 2 diabetes mellitus with hyperglycemia, with long-term current use of insulin (HCC) INJECT 58 UNITS SUBCUTANEOUSLY TWICE A DAY 105mL 2 02/16/2025 ActiveStart: 01-29-2025 End: 70-69-5048ctkggo 58 [IU] by subcutaneous injection in the morninginsulin glargine (Lantus) 100 UNIT/ML injection Indications: Type 2 diabetes mellitus with hyperglycemia, with long-term current use of insulin (HCC) Inject 58 Units under the skin in the morning and58 Units before bedtime. 104.4 mL 1 01/29/2025 07/28/2025 ActiveStart: 27-90-5333Hjqgte SoloStar 100 UNIT/ML pen 08/26/2024 ActiveStart: 10-30-2023 End: 94-15-6774Tkvweg SoloStar 100 UNIT/ML pen 10/30/2023 04/14/2024 Discontinued (Therapy completed)Start: 02-84-5324Utpdnd Solostar Pen 100 units/mL subcutaneous solution Refills(s) 0 Start Date: 02/06/22 Status: Ordered Start: 12-13-2017 End: 90-05-0779iojkor 50 [IU] by subcutaneous injection twice dailyInsulin Glargine (Lantus U-100 Insulin) 100 unit/mL Solution Discontinued 50 UNIT SUBCUT Twice daily December 13, 2017 12:00am April 05, 2025 12:53pmLantus SoloStar 100 UNIT/ML as directed Subcutaneous 58 UNITS ONCE A DAY Active3 ml insulin lispro 100 unt/ml pen injector (20 sources)Insulin AnalogStart: 10-06-2023 End: 36-79-1324QvnkOFW KWIKPEN 100 UNIT/ML injection Inject under the skin 10/06/2023 04/14/2024 Discontinued (Therapy completed)Start: 86-22-0160fmejyg 1 [IU] by subcutaneous injection before mealtimeInsulin [...] lactate 120 mg/ml topical lotion (20 sources)Start: 87-34-5450Vmaxt: 93-58-1576shfmcomm lactate (Lac-Hydrin) 12 % lotion 07/22/2024 ActiveStart: 23-90-7244fxlriscq lactate (Lac-Hydrin) 12 % lotion APPLY TO BILATERAL FEET EVERY DAY 07/22/2024 Activelisinopril 20 mg oral tablet (20 sources)Angiotensin Converting Enzyme InhibitorStart: 02-06-2022 End: 10-06-6997dozz 1 tablet by mouth once dailymeloxicam (5 sources)Nonsteroidal Anti-inflammatory DrugStart: 82-51-1171kaffeabta Daily, Refills(s) 0 Start Date: 02/06/22 Status: Orderedtake 1 tablet by mouth every twenty-four hoursMeloxicam 7.5 MG 1 tablet Orally Once a day ActivemetFORMIN hydrochloride 1000 mg oral tablet (1 source)Biguanidetake 1 tablet by mouth twice daily at mealtimemetFORMIN (GLUCOPHAGE) 1000 MG tablet Take 1,000 mg by mouth 2 times daily (with meals). 0 ActiveMounjaro 10 MG/0.5ML solution pen-injector (4 sources)Start: 10-22-2023 End: 89-59-6602mdyzwz 10 mg by subcutaneous injection every weekMounjaro 10 MG/0.5ML solution pen-injector INJECT 10MG SUBCUTANEOUSLY ONCE A WEEK 10/22/2023 04/14/2024 Discontinued (Therapy completed)Start: 59-00-0673vaokkj 10 mg by subcutaneous injection every weekMounjaro 10 MG/0.5ML solution pen-injector INJECT 10MG SUBCUTANEOUSLY ONCE A WEEK 10/22/2023 ActiveMounjaro 15 MG/0.5ML solution auto-injector (8 sources)Start: 61-66-3641Xmrqlvow 15 MG/0.5ML solution auto-injector Inject 15 mg as directed every 7 (seven) days 02/18/2024 Activenaloxone hydrochloride 40 mg/ml nasal spray (20 sources)Opioid AntagonistStart: 89-17-9934Aupqz: 48-22-4833acbfelcw (Narcan) 4 mg/0.1 mL nasal spray Administer 4 mg into affected nostril(s) if needed 07/04/2024 Rahhzv89 hr nicotine 0.875 mg/hr transdermal system (20 sources)Cholinergic Nicotinic AgonistStart: 07-14-2024 End: 72-24-3233dhhmspxq (Nicoderm, Step 1) 21 MG/24HR patch Indications: [...] capsule (20 sources)Proton Pump InhibitorStart: 12-25-2023 End: 90-89-0048clcp 1 capsule by mouth once dailytake 1 capsule by mouth before mealtimeomeprazole (PriLOSEC) [address] capsule Take 20 mg by mouth in the morning. Take before meals. Do not crush or chew. . 0 ActiveOxygen (20 sources)oxygen (O2) gas Inhale 2 L/min continuously via nasal canula Active potassium chloride 10 meq extended release oral tablet (20 sources)Start: 16-52-3780Naqgl: 02-06-2022 End: 53-83-8783gqln 1 capsule by mouth once daily in the morningpotassium chloride ER (Micro-K) 10 MEQ ER capsule Indications: Bilateral lower extremity edema Take1 capsule (10 mEq) by mouth Daily Take 1 capsule (10 mEq) by mouth in the morning. 90 capsule 1 01/26/2025 04/26/2025 ActiveStart: 12-13-2017 End: 96-43-5110Knksnblez Chloride (Klor-Con 10) 10 mEq Tablet Extended Release Discontinued 10 MEQ PO Twice daily December 13, 2017 12:00am April 05, 2025 12:56pmtake 1 tablet by mouth every twenty-four hoursPotassium Chloride ER 10 MEQ 1 tablet with food Orally Once a day ActivepredniSONE 10 mg oral tablet (11 sources)Start: 63-72-2951mnhdxqJGXF (Deltasone) 10 MG tablet 4 TABS X3 DAYS, 3TABS X3 DAYS, 2 TABS X3 DAYS, 1 TAB X3 DAYS, 1/2 TAB X4 DAYS 12/05/2024 Active pregabalin 150 mg oral capsule (20 sources)Start: 46-22-7492ktil 1 capsule by mouth once dailyStart: 08-13-2024 take 1 capsule by mouth once dailypregabalin (Lyrica) 150 MG capsule Take 150 mg by mouth Daily 08/13/2024 ActiveStart: 13-44-9665Beftpm Oral, Refills(s) 0 Start Date: 02/06/22 Status: OrderedStart: 12-13-2017 End: 62-03-6152rgeb 1 capsule by mouth in the morningpregabalin (Lyrica) 300 MG capsule Indications: Diabetic polyneuropathy associated with type 2 diabetes mellitus (HCC) Take 1 capsule (300 mg) by mouth in the morning and 1 capsule (300 mg) before bedtime. 60 capsule 5 04/14/2024 Activeroflumilast 0.5 mg oral tablet (20 sources)Phosphodiesterase 4 InhibitorStart: 01-04-2024 End: 30-27-6355uhyk 1 tablet by mouth once dailysimvastatin 10 mg oral tablet (20 sources)HMG-CoA Reductase InhibitorStart: 12-19-2024 End: 47-87-3556bhan 1 tablet by mouth once daily at bedtimeStart: 04-06-2024 End: 76-14-4691pzza 1 tablet by mouth at bedtimesimvastatin (Zocor) 10 MG tablet Indications: Hyperlipidemia, unspecified (CMS/HCC) Take 1 tablet (10 mg) by mouth at bedtime 90 tablet 1 08/27/2024 ActiveStart: 06-15-2023 End: 31-60-6382uqmt 1 tablet by mouth in the morningsimvastatin (Zocor) 10 MG tablet Indications: Hyperlipidemia, unspecified (CMS/HCC) Take 1 tablet (10 mg) by mouth in the morning. 90 tablet 1 06/15/2023 09/13/2023 ActiveStart: 12-13-2017 End: 33-88-3334uxay 1 tablet by mouth once daily in the eveningSimvastatin 20 mg Tablet Discontinued 20 MG PO Every evening December 13, 2017 12:00am March 1:00pmsulfamethoxazole 800 mg / trimethoprim 160 mg oral tablet (15 sources)Dihydrofolate Reductase Inhibitor Antibacterial, Sulfonamide AntimicrobialStart: 63-81-3864vmvm 1 tablet by mouth twice daily sulfamethoxazole-trimethoprim (Bactrim DS) 800-160 MG per tablet TAKE 1 TABLET BY MOUTH TWICE A DAYFOR 14 DAYS 01/14/2025 ActiveStart: 08-27-2024 End: 03-73-5688npvesryxtzxlyvlc-trimethoprim (Bactrim DS) 800-160 MG per tablet 08/27/2024 10/27/2024 Discontinued(Therapy completed)Symbicort 160/4.5 inhalation aerosol with adapter (3 sources)Start: 16-76-9153Mampmzoms 160/4.5 inhalation aerosol with adapter Refill(s) 0 Start Date: 02/06/22 Status: Rbhkurt46 actuat tiotropium 0.0025 mg/actuat inhalation spray (7 sources)AnticholinergicStart: 16-47-7106[place]ork Respimat 60 ACT 2.5 mcg/inh inhalation aerosol Refills(s) 0 Start Date: 02/06/22 Status: Orderedtake 2 puff(s) by inhalation in the morningtiotropium (Spiriva Respimat) 2.5 MCG/ACT inhaler Inhale 2 puffs in the morning. 0 Activetake 2 puff(s) by inhalation twice daily Spiriva Respimat 2.5 MCG/ACT 2 puffs Inhalation TWICE A DAY ActiveTirzepatide (2 sources)Start: 23-63-3240Azbxjfqiwjq (Mounjaro) 15 MG/0.5ML solution auto-injector (20 sources)Start: 85-12-4543uvsibb 15 mg by subcutaneous injection every week Tirzepatide (Mounjaro) 15 MG/0.5ML solution auto-injector Indications: Type 2 diabetes mellitus with other circulatory complications (HCC) Inject 15 mg under the skin 1 (one) time per week 6 mL 1 02/27/2025 ActiveStart: 08-84-2488hrxpkf 15 mg by subcutaneous injection every weekTirzepatide (Mounjaro) 15 MG/0.5ML solution auto-injector Indications: Type 2 diabetes mellitus with other circulatory complications (HCC) INJECT 15MG SUBCUTANEOUSLY ONCE A WEEK 6 mL 1 07/07/2024 ActiveStart: 37-99-3767xtkyuy 15 mg by subcutaneous injection every weekTirzepatide (Mounjaro) 15 MG/0.5ML solution auto-injector Indications: Type 2 diabetes mellitus with other circulatory complications INJECT 15MG SUBCUTANEOUSLY ONCE A WEEK 6 mL 1 07/07/2024 ActiveStart: 68-58-5968csrqse 15 mg by subcutaneous injection every weekTirzepatide [...] oral tablet (20 sources)Partial Cholinergic Nicotinic AgonistStart: 91-26-5523bsyb 1 tablet by mouth twice dailyStart: 12-19-2024 End: 28-16-2861osfg 1 tablet by mouth in the morningvarenicline (Chantix) 1 MG tablet Indications: Tobacco user , Encounter for smoking cessation counseling TAKE 1 TABLET BY MOUTH IN THE MORNING AND 1 TABLET BEFORE BEDTIME. TAKE WITH FULL GLASS OF WATER. 60 tablet 1 03/09/2025 ActiveStart: 08-27-2024 End: 41-49-2012qwfu 1 tablet by mouth in the morningvarenicline (Chantix) 1 MG tablet Indications: Tobacco user , Encounter for smoking cessation counseling Take 1 tablet (1 mg) by mouth in the morning and 1 tablet (1 mg) before bedtime. Take with full glass of water.. 60 tablet 1 08/27/2024 ActiveStart: 12-05-2023 End: 58-68-7641Hqkkneaugml Tartrate, Starter, 0.5 MG X 11 & 1 MG X 42 tablet [facility]/05/2023 07/14/2024 Discontinued (Therapy completed)Start: 87-53-7663Jbkljsivhbm Tartrate, Starter, 0.5 MG X 11 & 1 MG X 42 tablet therapy pack [facility] 12/05/2023 Active Completed/Discontinued Medications MedicationDrug Class(es)DatesSig (Normalized)Sig (Original)amoxicillin 875 mg / clavulanate 125 mg oral tablet (6 sources)Penicillin-class AntibacterialStart: 12-05-2024 End: 80-63-1755gwur 1 tablet by mouth every twelve hoursamoxicillin-clavulanate (Augmentin) 875-125 MG tablet Take 1 tablet by mouth every 12 (twelve) hours 12/05/2024 01/26/2025 Discontinued (Therapy completed)cephalexin 500 mg oral capsule (9 sources)Cephalosporin AntibacterialStart: 2024 End: 91-85-5210zbzlirqsww (Keflex) 500 MG capsule 2024 10/27/2024 Discontinued (Therapy completed)Glucose Blood (ACCU-CHEK JAQUI PLUS ) (14 sources) End: 14-93-2123Fsrijum Blood (ACCU-CHEK JAQUI PLUS ) 4 (four) times a day. 07/14/2024 Discontinued (Therapy completed)Glucose Blood (ACCU-CHEK JAQUI PLUS ) 4 (four) times a day. ActiveGlucose Blood (ACCU-CHEK JAQUI PLUS ) 4 (four) times a day. 0 Active3 ml liraglutide 6 mg/ml pen injector (6 sources)GLP-1 Receptor Agonist End: 98-42-9700quwpdcqbnzd (Victoza) 18 MG/3ML injection Inject under the skin Daily 07/14/2024 Discontinued (Therapy completed)naproxen 500 mg oral tablet (2 sources)Nonsteroidal Anti-inflammatory DrugStart: 12-13-2017 End: 64-62-9178uptm 1 tablet by mouth twice daily at mealtimeNaproxen 500 mg tablet Discontinued 500 MG PO Twice daily 20 0 December 13, 2017 12:00am April 05, 2025 12:53pm administer with food or milknortriptyline 50 mg oral capsule (18 sources)Tricyclic AntidepressantStart: 12-13-2017 End: 17-17-9233ceyi 1 capsule by mouth once daily at bedtimeNortriptyline 50 mg Capsule Discontinued 50 MG PO Daily at bedtime December 13, 2017 12:00am April 05, 2025 12:53pmubrogepant 100 mg oral tablet (12 sources) End: 18-08-8088glgk 1 tablet by mouth every twenty-four hours as needed Ubrogepant (Ubrelvy) 100 MG tablet Take 100 mg by mouth Daily as needed 07/14/2024 Discontinued (Therapy completed) Problems Active Problems Problem ClassificationProblemDateDocumented DateEpisodic/ChronicAbdominal pain (6 sources)Left flank pain; Translations: [Lower abdominal pain, unspecified] Onset: 747968-09-6682GfbiwppdGychetii foot deformities (1 source)Other hammer toe(s) (acquired), right foot; Translations: [OTHER HAMMER TOES ACQUIRED RT FOOT]Onset: 78-91-2518FbmjpciMnvdwmsj foot deformities (1 source)Other hammer toe(s) (acquired), left foot; Translations: [OTHER HAMMER TOES ACQUIRED LT FOOT]Onset: 90-53-3243ZhktihfIutttnr disorders (20 sources)Mixed anxiety and depressive disorder; Translations: [Anxiety disorder, unspecified]Onset: 445815-98-5887HebpxqqTsrlnj (20 sources)Asthma; Translations: [Unspecified asthma, uncomplicated]Onset: 076131-51-1353BvtrsxmKqjiro of cervix (20 sources)Malignant tumor of cervix; Translations: [Malignant neoplasm of cervix uteri, unspecified]Onset: 804056-67-1547VhjhdsgAvzbso of cervix (2 sources)History of malignant neoplasm of cervix; Translations: [Personal history of malignant neoplasm of cervix uteri]64-02-6514JbynwxmkXqpsdkg kidney disease (5 sources)Chronic kidney disease; Translations: [Chronic kidney disease, unspecified]Onset: 02-20-2022 Resolved: 00-05-0376AskolsfExykqtg obstructive pulmonary disease and bronchiectasis (20 sources)Pulmonary emphysema; Translations: [Chronic obstructive pulmonary disease with (acute) exacerbation]Onset: 219204-06-4162ZuhoqjyDwlcsqq ulcer of skin (20 sources)Non-pressure chronic ulcer of other part of right lower leg limited to breakdown of skin; Translations: [Non-pressure chronic ulcer of other part of left lower leg limited to breakdown of skin]Onset: 717995-43-4750Chxuzsv Congestive heart failure; nonhypertensive (20 sources)Chronic diastolic heart failure; Translations: [Chronic diastolic (congestive) heart failure]Onset: 346756-78-6319ZdcehheEocfqzny mellitus with complications (20 sources)Disorder of kidney due to diabetes mellitus; Translations: [Type 2 diabetes mellitus with diabetic chronic kidney disease]Onset: 02-20-2022 Resolved: 18-57-8764DvuzsjgJmrauqvv mellitus without complication (13 sources)Type 2 diabetes mellitus; Translations: [Type 2 diabetes mellitus without complications]Onset: 523934-97-4461NlstspgVyefrdnns of lipid metabolism (20 sources)Pure hypercholesterolemia, unspecified; Translations: [Hyperlipidemia, unspecified]Onset: 209181-31-1451ApqqkpxKffrhxmstp disorders (20 sources)Gastro-esophageal reflux disease without esophagitis; Translations: [Gastroesophageal reflux disease]Onset: 12-05-2022 Resolved: 937070-63-0466FbzfddwGqkscoiie hypertension (20 sources)Hypertensive disorder; Translations: [Essential (primary) hypertension]Onset: 288648-04-4123YjpyefzMlnglehfbatjt symptoms and ill- defined conditions (20 sources)Mixed incontinence; Translations: [Incontinence]Onset: 02-06-2022 ChronicGout and other crystal arthropathies (20 sources)Gout; Translations: [Gout, unspecified]Onset: ChronicHypertension with complications and secondary hypertension (5 sources)Chronic kidney disease due to hypertension; Translations: [Hypertensive chronic kidney disease withstage 1 through stage 4 chronic kidney disease, or unspecified chronic kidney disease]Onset: 02-20-2022 Resolved: 39-63-1889YujghffPpfq disorders (1 source)Major depressive disorder, single episode, unspecified; Translations: [ANASTACIO DEPRESS D/O SINGLE EPIS UNS]Onset: 69-13-0343LmysrzpExosrozbbrlpd gastroenteritis (1 source)Noninfective gastroenteritis and colitis, unspecified; Translations: [NONINFECTIVE GE AND COLITIS UNS]Onset: 53-64-2063VsosqtbiDbfsxrmhxrz deficiencies (20 sources)Vitamin D deficiency; Translations: [Vitamin D deficiency, unspecified]Onset: 757216-27-8071ZocifrvEdggyryfqeozup (20 sources)Arthritis; Translations: [Unspecified osteoarthritis, unspecified site]Onset: 096182-67-2457WaganvtDzbgs aftercare (1 source)Other half-way (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 therapy; Translations: [OTH INTERMEDIATE CURRENT DRUG THERAPY]Onset: 38-44-6794PffizzowTfmje aftercare (1 source)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 (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; Translations: [INTERMEDIATE CURRENT USE OF ASPIRIN]Onset: 27-83-3186PeeoeyjgYuxqq aftercare (6 sources)Long-term current use of insulin; Translations: [halfway (current) use of insulin]85-20-2176RfwrswteAohfn and ill-defined heart disease (20 sources)Cardiomegaly; Translations: [Cardiomegaly]Onset: 10-25-2017 25-74-0197HexhsitRctnv and ill-defined heart disease (1 source)Cardiomegaly; Translations: [Cardiomegaly]Onset: 80-80-0160Mnlkrxh Other and unspecified benign neoplasm (1 source)Benign lipomatous tumor; Translations: [Benign lipomatous neoplasm of other sites]Onset: 21-86-3778SljeqvujCteqp bone disease and musculoskeletal deformities (1 source)Acquired absence of other left toe(s); Translations: [ACQUIRED ABSENCE OF OTHER LEFT TOES]Onset: 36-62-7802YweuylbgOxzkm diseases of kidney and ureters (1 source)Urinary tract obstruction; Translations: [Other obstructive and reflux uropathy]Onset: 47-65-0357PhqqytqbQsbzs diseases of veins and lymphatics (1 source)Chronic venous hypertension (idiopathic) with ulcer and inflammation of bilateral lower extremity; Translations: [CHRN KEO HTN ULCR INFLAM ALEX LW EXT]Onset: 32-25-2892UnespwrIikul diseases of veins and lymphatics (1 source)Chronic venous hypertension (idiopathic) with ulcer of left lower extremity; Translations: [CHRON VENOUS HTN W/ULCER LT LW EXT]Onset: 09-01-2022 ChronicOther diseases of veins and lymphatics (1 source)Lymphedema, not elsewhere classified; Translations: [LYMPHEDEMA NOT ELSEWHERE CLASSIFIED]Onset: 98-31-7611ZfjbpqgJsjrf diseases of veins and lymphatics (5 sources)Chronic peripheral venous hypertension with lower extremity complication; Translations: [Chronic venous hypertension (idiopathic) with ulcer of bilateral lower extremity]Onset: 082821-20-7949NepdrqiYviia diseases of veins and lymphatics (20 sources)Chronic peripheral venous hypertension; Translations: [Chronic venous hypertension (idiopathic) with ulcer of bilateral lower extremity]Onset: 195862-84-3003WveqesqTrmqd diseases of veins and lymphatics (18 sources)Stasis dermatitis and venous ulcer of right lower extremity due to chronic peripheral venous hypertension; Translations: [Chronic venous hypertension (idiopathic) with ulcer and inflammation of rightlower extremity] Onset: 135487-61-9881RarpnfdDsjeo endocrine disorders (2 sources)Disorder of adrenal gland; Translations: [Other specified disorders of adrenal gland]Onset: 46-10-8315DbljhemBkkmz endocrine disorders (20 sources)Adrenal mass; Translations: [Disorder of adrenal gland, unspecified] Onset: 866634-40-0593XticoenShhwr endocrine disorders (2 sources)Disorder of adrenal gland, unspecifiedOnset: 02-20-2022 Resolved: 40-20-5452QpjmgnkFlhfb endocrine disorders (5 sources)Other specified disorders of adrenal gland; Translations: [OTHER SPEC DISORDERS ADRENAL GLAND]Onset: 28-65-8942ZbpumrvMzefj gastrointestinal disorders (3 sources)Adrenal idwo02-73-6281LdymypkyVlsuo lower respiratory disease (1 source)Hypoxemia; Translations: [HYPOXEMIA]Onset: 35-61-4928WpmkonqjHzmmb nervous system disorders (5 sources)Chronic pain syndrome; Translations: [CHRONIC PAIN SYNDROME]Onset: 17-74-8996XeskqwsAtuut nervous system disorders (1 source)Other chronic pain; Translations: [OTHER CHRONIC PAIN]Onset: 30-20-3549UnyxpqpPyesw non-traumatic joint disorders (4 sources)Pain in right hip; Translations: [PAIN IN RIGHT HIP]Onset: 04-27-2022 EpisodicOther nutritional; endocrine; and metabolic disorders (2 sources)Localized adiposity; Translations: [Localized adiposity]ChronicOther nutritional; endocrine; and metabolic disorders (20 sources)Body mass index 40+ - severely obese; Translations: [Body mass index (BMI) 50.0-59.9, adult]Onset: 099902-25-2375ZomltwyVvxlx nutritional; endocrine; and metabolic disorders (3 sources)Body mass index (BMI) 50.0-59.9, adult; Translations: [BODY MASS INDEX BMI 50.0-59.9 ADULT]Onset: 55-59-3742CpmohwnEvwdz nutritional; endocrine; and metabolic disorders (3 sources)Morbid (severe) obesity due to excess calories; Translations: [MORBID SEVERE OBES D/T EXCESS NHI]Onset: 92-29-7227YrvfbhmTewqe nutritional; endocrine; and metabolic disorders (1 source)Obesity, unspecified; Translations: [OBESITY UNSPECIFIED]Onset: 86-03-6215GmlowwmHvdmh nutritional; endocrine; and metabolic disorders (20 sources)Obesity caused by energy imbalance; Translations: [Morbid (severe) obesity due to excess calories]Onset: 378455-31-2770TendnwlEojgk screening for suspected conditions (not mental disorders or infectious disease) (1 source)Encounter for screening mammogram for malignant neoplasm of breast; Translations: [ENC SCR MAMMO MALIG NEOPLASM BREAST]Onset: 38-89-0448Uysmpiya Other skin disorders (2 sources)Bilateral localized swelling of lower legs; Translations: [Localized swelling, mass and lump, lowerlimb, bilateral]29-04-2844JbldhralFtayo upper respiratory disease (20 sources)Allergic rhinitis; Translations: [Other allergic rhinitis]Onset: 116975-52-3598IehnoqqNkxgpebhhb and visceral atherosclerosis (20 sources)Peripheral vascular disease, unspecified; Translations: [Peripheral vascular disease, unspecified]Onset: 868394-49-2559BhklvjmArnzpfsld heart disease (20 sources)Pulmonary hypertension; Translations: [Pulmonary hypertension, unspecified]Onset: 560725-52-9719LjapnlmMzexyicf codes; unclassified (3 sources)Obstructive sleep apnea (adult) (pediatric); Translations: [OBSTRUCTIVE SLEEP APNEA]Onset: 84-24-2992CkwmyehOsbhguuj codes; unclassified (20 sources)Obstructive sleep apnea syndrome; Translations: [Obstructive sleep apnea (adult) (pediatric)]Onset: 622030-03-1867SavzywyBkqhwppt codes; unclassified (1 source)Acquired absence of other specified parts of digestive tract; Translations: [ACQ ABSENCE OTH PART DIGESTV TRACT]Onset: 77-31-3670Oauoyklu Residual codes; unclassified (1 source)Acquired absence of both cervix and uterus; Translations: [ACQUIRED ABSENCE BOTH CERVIX AND UTERUS]Onset: 12-83-7398PlszbjokIhphkomm codes; unclassified (1 source)Family history of malignant neoplasm of ovary; Translations: [FAM HX MALIGNANT NEOPLASM OVARY]Onset: 45-56-6739ZceeqnbwNifwqsih codes; unclassified (1 source)Family history of malignant neoplasm, unspecified; Translations: [FAM HX MALIGNANT NEOPLASM UNS]Onset: 68-28-1446ZgyqijilRbwsemryi-related disorders (20 sources)Nicotine dependence; Translations: [Nicotine dependence, unspecified, uncomplicated]Onset: 73-07-4809SpkznqhXrfapjg on above:Added secondary to documentation in Social History.Unclassified (1 source)INTERMEDIATE INJECT NONINSULN ANTIDIAB; Translations: [INTERMEDIATE INJECT NONINSULN ANTIDIAB]Onset: 65-84-4900Dlnzjgggkcib (3 sources)CONTACT W/AND (SUSP) EXPOS COVID-19; Translations: [CONTACT W/AND (SUSP) EXPOS COVID-19]Onset: 30-09-9987Usagmotifvux (3 sources)LOW BACK PAIN, UNSPECIFIED; Translations: [LOW BACK PAIN, UNSPECIFIED]Onset: 40-84-5104Kflschcqujms (1 source)Obesity, class 3; Translations: [Obesity, class 3]Onset: 11-14-2023 Viral infection (1 source)COVID-19; Translations: [COVID-19]Onset: 09-29-2022 Past or Other Problems Problem ClassificationProblemDateDocumented DateEpisodic/ChronicAcquired foot deformities (1 source)Other deformities of toe(s) (acquired), left foot; Translations: [OTHER DEFORMITIES TOES ACQ LT FOOT]Onset: 33-20-0084Kwfocurt Administrative/social admission (20 sources)Patient encounter status; Translations: [Dietary counseling and surveillance]Onset: 490300-32-7425BchwasdbIeupjdzp of urinary tract (20 sources)Kidney stone; Translations: [Calculus of kidney]Onset: 02-06-2022 EpisodicE Codes: Natural/environment (1 source)Other and unspecified overexertion or strenuous movements or postures, initial encounter; Translations: [OTH AND UNS OVREXRT/STRN MVMT/POS INT]Onset: 00-11-5719OgwftaveXdkho of unknown origin (18 sources)Fever; Translations: [Fever, unspecified]Onset: EpisodicGenitourinary symptoms and ill-defined conditions (20 sources)Proteinuria; Translations: [Proteinuria, unspecified]Onset: 02-06-2022 Resolved: 99-14-1724QfywcawmNhwuqdso; including migraine (20 sources)Headache; Translations: [Headache disorder]Onset: 01-17-2024 43-14-0349TushekbbTqzbjqrcqoicw and screening for infectious disease (20 sources)Encounter for screening for other infectious and parasitic diseases; Translations: [Anti-nuclear factor positive]Onset: 302362-02-4445Slloahnl Mood disorders (20 sources)Mood disorders; Translations: [DEPRESSION UNSPECIFIED]Onset: 005372-91-5173Afpwhdr (20 sources)Tinea unguium; Translations: [Candidiasis of vagina]Onset: 79-34-5937AahtkpdnHdqmptarnmz deficiencies (20 sources)Vitamin deficiency; Translations: [Vitamin deficiency, unspecified] Onset: 994894-09-8891FmzfbfmaZbmrb aftercare (3 sources)halfway (current) use of insulin; Translations: [INTERMEDIATE CURRENT USE OF INSULIN]Onset: 79-56-4067BtpjkczdNbdzs aftercare (20 sources)Long-term current use of inhaled steroid; Translations: [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 (current) use of inhaled steroids]Onset: 597395-96-2783JipzmvrhIuhxl and unspecified benign neoplasm (20 sources)Myelolipoma of adrenal gland; Translations: [Benign lipomatous neoplasm of other sites]Onset: 340356-04-9757EpafhqfbFwxkv connective tissue disease (4 sources)Other muscle spasm; Translations: [OTHER MUSCLE SPASM]Onset: 12-83-0815EligjkiuLuqde diseases of veins and lymphatics (20 sources)Vascular insufficiency; Translations: [Venous insufficiency (chronic) (peripheral)]Onset: 476081-36-8109HutntpikHlocq diseases of veins and lymphatics (2 sources)Venous insufficiency (chronic) (peripheral); Translations: [Venous insufficiency (chronic) (peripheral)]Onset: 59-07-5112YlnytqihPmfzu hematologic conditions (1 source)Secondary polycythemiaOnset: 03-08-2022 Resolved: 76-82-3236DkpbxyvnHwstx nervous system disorders (20 sources)Reduced mobility; Translations: [Other abnormalities of gait and mobility]Onset: 999773-83-3415OabuhtqcPrsqr non-traumatic joint disorders (1 source)Effusion, left knee; Translations: [EFFUSION LEFT KNEE]Onset: 67-31-8423MziiqmbiPsuei non-traumatic joint disorders (1 source)Pain in left knee; Translations: [PAIN IN LEFT KNEE]Onset: 07-26-2022 EpisodicOther non-traumatic joint disorders (20 sources)Pain in right knee; Translations: [Pain in joint, lower leg]Onset: 802737-93-5659YcrnqykdRnwnw nutritional; endocrine; and metabolic disorders (20 sources)Severe obesity; Translations: [Morbid (severe) obesity due to excess calories]Onset: 07-10-2023 Resolved: 269611-93-9684GqmsirzHllqn nutritional; endocrine; and metabolic disorders (20 sources)Excess panniculus of abdomen; Translations: [Localized adiposity] Onset: 10-25-2017 Resolved: 575149-62-2411IgjjgfgLkcuu skin disorders (1 source)Nail dystrophy; Translations: [NAIL DYSTROPHY]Onset: 09-01-2022 EpisodicOther skin disorders (1 source)Corns and callosities; Translations: [CORNS AND CALLOSITIES]Onset: 43-57-6610PmsaqbpfFtknh skin disorders (1 source)Xerosis cutis; Translations: [XEROSIS CUTIS]Onset: 53-91-0429Qilemqgz Other skin disorders (20 sources)Hyperpigmentation of skin; Translations: [Disorder of pigmentation, unspecified]Onset: 574143-80-3231RkelrqemIiduza media and related conditions (20 sources)Acute suppurative otitis media without spontaneous rupture of ear drum; Translations: [Acute suppurative otitis media without spontaneous rupture of ear drum, left ear]Onset: 01-17-2024 Resolved: 049995-61-2246LxiwcdciXrwbmtlbzh disorders (not diabetes) (20 sources)Acute pancreatitis without necrosis or infection, unspecified; Translations: [Pancreatitis]Onset: 289832-90-5787PgnxzkbdQaadcuhjv (except that caused by tuberculosis or sexually transmitted disease) (20 sources)Pneumonia; Translations: [Pneumonia, unspecified organism]Onset: 09-17-2023 Resolved: 134314-48-2087StevvtpnTggrugys codes; unclassified (3 sources)Localized edema; Translations: [LOCALIZED EDEMA]Onset: 09-01-2022 EpisodicResidual codes; unclassified (20 sources)Edema; Translations: [Edema, unspecified]Onset: 07-10-2023 Resolved: 068300-14-4718GeaocoxoBohnrjlw codes; unclassified (20 sources)Bilateral lower limb edema; Translations: [Localized edema]Onset: 697884-80-7464UpefxmuwEqnaowfx codes; unclassified (20 sources)Insomnia; Translations: [Insomnia, unspecified]Onset: 09-17-2023 05-46-8805MdkssshhDcwlhujp codes; unclassified (20 sources)Tobacco user; Translations: [Tobacco use]Onset: 09-17-2023 Resolved: 284035-75-0516YbaswaqdDpnzevqg codes; unclassified (20 sources)Edema of lower extremity; Translations: [Localized edema]Onset: 09-17-2023 Resolved: 392825-03-2298WlzwvwvvMtst and subcutaneous tissue infections (20 sources)Cellulitis of right lower limb; Translations: [Cutaneous abscess of left axilla]Onset: 36-63-5417IhqpwgoiZatttyviuwn; intervertebral disc disorders; other back problems (20 sources)Lumbar radiculopathy; Translations: [Radiculopathy, lumbar region] Onset: 033081-51-9991EwpfgrhhKzhyozz and strains (1 source)Strain of muscle, fascia and tendon of lower back, initial encounter; Translations: [STRAIN MUSC FASC TENDON LW BACK INT]Onset: 76-31-4060Hjobpvhh Unclassified (1 source)CONTACT W/AND (SUSP) EXPOS COVID-19; Translations: [CONTACT W/AND (SUSP) EXPOS COVID-19]Onset: 79-27-0423Yxvbeoifgtdu (1 source)LOW BACK PAIN, UNSPECIFIED; Translations: [LOW BACK PAIN, UNSPECIFIED] Onset: 74-93-9316Jadxwxhawgsh (4 sources)Patient encounter dxnacv92-94-9632Rxpbwbhjmxpf (1 source)Obesity, class 3; Translations: [Obesity, class 3]Onset: 08-08-2024 Varicose veins of lower extremity (20 sources)Varicose veins of right lower extremity with ulcer of unspecified site; Translations: [Varicose veins of lower extremities with ulcer]Onset: 06-19-2024 Resolved: 785355-47-0728Ypteqjrl Results Test NameValueInterpretationReference RangeFacility.eGFRon 19-76-6930WYH/1.73 sq M.predicted MDRD (S/P/Bld) [Vol rate/Area]mL/min/{1.73_m2}Normal>=60BlUniversity Hospitals Geauga Medical CenterComment on above:Result Comment: [facility] have implemented the eGFR calculation approach [...] Age = yearsPerformed By: #### EGFR #### [address] [address]HHN w/ Diffon 41-39-3912Npkucyfwgmp distribution width (RBC) [Ratio]20.0 %High11.6-14.8BMercy Health Springfield Regional Medical CenterComment on above: Performed By: #### CBC #### [address] [address]Xptjqsudba (Bld) [Volume fraction]53.8 %High36.0-46.0[facility] CenterComment on above:Performed By: #### CBC #### [address] [address]Octszqlzrw (Bld) [Mass/Vol]17.7 g/qXUvuu53.0-16.0[facility] CenterComment on above:Performed By: #### CBC #### [address] [address]RUV (RBC) [Entitic mass]27.1 oxDifekx79.0-35.0[facility] CenterComment on above:Performed By: #### CBC #### [address] [address]EWWR24.9 %Wxjylt92.0-37.0[facility] CenterComment on above:Performed By: #### CBC #### [address] [address]NML (RBC) [Entitic vol]82.2 hUKjrurg60.0-100.0[facility] CenterComment on above:Performed By: #### CBC #### [address] [address]Ykefegct595 x10*3/qsLDzc678-595UulmuqlmtSouthern Ohio Medical Center Comment on above:Performed By: #### CBC #### [address] [address]Pwnuzpaj mean volume (Bld) [Entitic vol]10.4 fLNormal6.7-10.6 [facility] CenterComment on above:Performed By: #### CBC #### [address] [address]DFE3.54 x10*6/mcLHigh3.80-5.20[facility] Comment on above:Performed By: #### CBC #### [address] [address]OVJ02.6 x10*3/mcLHigh4.5-11.0[facility] Comment on above:Performed By: #### CBC #### [address] [address]EGQfo 38-00-6821HPZ [Mass/Vol]35.5 mg/LHigh0.0-9.9BMercy Health Springfield Regional Medical CenterComment on above:Result Comment: For normal [...] FUTURE CARDIAC EVENTS.Performed By: #### CRP #### [address] [address]Awmp Autoon 93-28-5843Ftub Absolute0.1 x10*3/mcLNormal0.0-0.2 [facility] CenterComment on above:Performed By: #### .Automated Diff #### [address] [address]Mphypqqrf/100 WBC (Bld)0.5 %Normal0.0-1.5BMercy Health Springfield Regional Medical CenterComment on above:Performed By: #### .Automated Diff #### [address] [address]Uof Absolute0.3 x10*3/mcLNormal0.0-0.4BKeenan Private Hospital SystemComment on above:Performed By: #### .Automated Diff #### [address] [address]Qtwxtkowqcl/100 WBC (Bld)2.3 %Normal0.0-5.4BMercy Health Springfield Regional Medical CenterComment on above:Performed By: #### .Automated Diff #### [address] [address]Xpawk Absolute2.8 x10*3/mcLNormal1.0-4.8BMercy Health Springfield Regional Medical CenterComment on above:Performed By: #### .Automated Diff #### [address] [address]Ngmeirdkngm/100 WBC (Bld)22.5 %Low27.2-40.8BMercy Health Springfield Regional Medical CenterComment on above:Performed By: #### .Automated Diff #### [address] [address]Rscg Absolute0.6 x10*3/mcLNormal0.1-1.1BMercy Health Springfield Regional Medical CenterComment on above:Performed By: #### .Automated Diff #### [address] [address]Uozeqspty/100 WBC (Bld)5.1 %Normal3.7-11.9BMercy Health Springfield Regional Medical CenterComment on above:Performed By: #### .Automated Diff #### [address] [address]Qxvnvq Absolute8.8 x10*3/mcLHigh1.8-7.7BMercy Health Springfield Regional Medical CenterComment on above:Performed By: #### .Automated Diff #### [address] [address]Lfztwq Auto69.6 %Fgctbg14.2-70.8BMercy Health [facility] Center Comment on above:Performed By: #### .Automated Diff #### [address] [address]NHWho 35-84-0470Wlq Rate12 mm/hrNormal0-30[facility] CenterComment on above:Performed By: #### ESR #### [address] [address]Uzuyqiyk Office/Clinic Noteon 08-08-0337Cssoysxi Office/Clinic NoteThe content of this note was [...] solely to facilitate the conversation. Missing Attachment [id number] Can be viewed in source system The [...] prescription lotion to the wounds. She takes [place] for pain and daily baby aspirin. She smokes and is on disability, and does not require [facility] paperwork. She reports recent blood flow [...] Orthopedic: Bony foot structur (more content not included)...[facility] HospitalComment on above:Order Comment: Missing Attachment [id number] Can be viewed in source systemMissing Attachment [id number] Can be viewed in source system Provider Letteron 75-14-7056Esovjpcq Letter Mckayla Blas, MANAGER [employer]ORATORY[employer] [address] [place] [address] Re: Mitzi Macias Date of Visit: 05/18/2025 Dear Mckayla Blas APRN-SAYDA, [facility] [address] [place] [address], [phone] Date: 05/18/2025 12:46:10 Please see attached progress/office note regarding mutual patient, Mitzi Macias who was seen on04/29/2025 14:16:18. Please see attached note for further details and please call with any questions or concerns. Sincerely, KANDI Sampson Providers: The following document(s) were included in the letter: May 18, 2025 12:43:05 EST - (05/18/2025) Office Visit Note CAANormal [facility] CenterRenal Panelon 91-28-5732Qxeiult [Mass/Vol]3.5 g/dL Low3.7-5.3BMercy Health Springfield Regional Medical CenterComment on above:Performed By: #### RENAL #### [address] [address]Zslpb gap [Moles/Vol]6 mmol/LNormal4-12[facility] CenterComment on above:Performed By: #### RENAL #### [address] [address]KKW Crea Ratio25.0 lfojoWjfjtj83.0-25.0[facility] CenterComment on above:Performed By: #### RENAL #### [address] [address]Wgtsiej [Mass/Vol]9.0 mg/dLNormal8.6-10.3BMercy Health Springfield Regional Medical CenterComment on above:Performed By: #### RENAL #### [address] [address]Dbewvhic [Moles/Vol]105 mmol/HWuqdry48-164XqwmjqvvhSouthern Ohio Medical CenterComment on above:Performed By: #### RENAL #### [address] [address]UI6 [Moles/Vol]30 mmol/TOlnfcd24-79KbbczbhfqSouthern [facility] Medical CenterComment on above:Performed By: #### RENAL #### [address] [address]Ljxargzqfx [Mass/Vol]0.80 mg/dLNormal0.60-1.20[facility] CenterComment on above:Performed By: #### RENAL #### [address] [address]Ewrsxsf [Mass/Vol]137 mg/eDRqmt34-53SxrsvvpfwSouthern Ohio Medical CenterComment on above:Performed By: #### RENAL #### [address] [address]Htpcvgxdk [Mass/Vol]3.6 mg/dLNormal2.5-4.6BMercy Health Springfield Regional Medical CenterComment on above:Performed By: #### RENAL #### [address] [address]Ajyddajog [Moles/Vol]4.5 mmol/LNormal3.4-4.8BMercy Health Springfield Regional Medical CenterComment on above:Performed By: #### RENAL #### [address] [address]Chnjqp [Moles/Vol]141 mmol/PLaulhc873-623KzqjeyvtrSouthern Ohio Medical CenterComment on above:Performed By: #### RENAL #### [address] [address]Zbns nitrogen [Mass/Vol]20 mg/dLNormal7-25[facility] CenterComment on above:Performed By: #### RENAL #### [address] [address]Mxkbhtooujj 09-84-0199SvhrtwarhGcixyvoai From: Maria Elena Negrete To: EU - [...] ) Other: PROVIDER RELATED REMINDER:_ ( ) Cyber Security Architect ( ) Call Pharmacy ( ) Call [...] unable to leave a message at this time.[facility] HospitalVascular Office/Clinic Noteon 32-73-7246Fhcwrjws Office/Clinic NoteChief Complaint Leg ulcer History of Present Illness Mitzi was referred by her nuclear officer for evaluation of PVD. She has had ulcers in the bilateral lower extremities above the ankle for about a year. She has been seen by wound care in [facility]. They are applying compression with medicated wraps. [...] signed by Corinne Kellogg MD 04/23/25 11:56 TMer[facility] VL Ankle Brachial Indiceson 45-86-8063DR Ankle Brachial IndicesPreliminary Technologist Report Ankle/brachial index study was performed. Please see below for information. Bisque Grader: Zayra Ag, RVS Radiologist Report BILATERAL LOWER [...] please contact our Vascular Rehabilitation Department at [phone]. Final Signed by: Jose F Casanova MD Signed (Electronic Signature): 04.17.2025 3:28 pm Transcribed by: Jose F Casanova MD Transcribed DT/TM: 04.17.2025 3:12 (If Report is Signed, Electronically Signed in Other Vendor System)Normal [facility] CenterBasophils Auto (Bld) [#/Vol]Ordered By: Flynn Urias on 82-04-4657Tgjtnukol (Bld) [#/Vol]0.1 10 3/uL0.0-0.1FSelect Medical Specialty Hospital - Cleveland-FairhillBasophils/100 WBC Auto (Bld)Ordered By: Flynn Urias on 76-48-0403Krbexernn/100 WBC (Bld)0.6 %0.2-2.0[facility] Eosinophils/100 WBC Auto (Bld)Ordered By: Flynn Urias on 03-26-2025 Eosinophils/100 WBC (Bld)2.7 %0.9-7.0[facility] Erythrocyte distribution width Auto (RBC) [Ratio]Ordered By: Flynn Urias on 25-84-9017Tuvyomrjeod distribution width (RBC) [Ratio]16.4 %High11.0-15.[address] [facility] HospitalGlomerular filtration rate (GFR) estimation in non- AmericanOrdered By: Flynn Urias on 87-17-1302UXB/1.73 sq M.predicted among non-blacks MDRD (S/P/Bld) [Vol rate/Area]mL/min/{1.73_m2}>=60 mL/min/1.73m 2FSelect Medical Specialty Hospital - Cleveland-FairhillHematocrit Auto (Bld) [Volume fraction]Ordered By: Flynn Urias on 13-28-9145Lylyhonsmu (Bld) [Volume fraction]52.5 %High36.0-48.0[facility] HospitalHemoglobin [Mass/volume] in BloodOrdered By: Flynn Urias on 20-70-8404Ufywlwlwym (Bld) [Mass/Vol]16.1 g/rYRtpd49.0-16.0[facility] HospitalLaboratory - Chemistry and Chemistry - challengeOrdered By: Flynn Urias on 03-26-2025 Albumin [Mass/Vol]2.8 g/dLLow3.4-5.0[facility] HospitalCalcium [Mass/Vol]8.6 mg/dL8.5-10.1FSelect Medical Specialty Hospital - Cleveland-FairhillChloride [Moles/Vol] 105 mmol/P13-263HzfwgxtaaMercy Health St. Elizabeth Youngstown HospitalCO2 [Moles/Vol]31.5 mmol/L 21.0-32.0[facility] HospitalCreatinine [Mass/Vol]0.69 mg/dL 0.55-1.02[facility] HospitalGFR/1.73 sq M.predicted MDRD (S/P/Bld) [Vol rate/Area]mL/min/{1.73_m2}>=60 mL/min/1.73m 2FSelect Medical Specialty Hospital - Cleveland-FairhillGlucose [Mass/Vol]147 mg/mQDpcw94-439YeuspfdswMercy Health St. [facility] Potassium [Moles/Vol]4.2 mmol/L3.5-5.1FOhioHealthodium [Moles/Vol]141 mmol/H367-575AquoavmbkMercy Health St. Elizabeth Youngstown HospitalUrea nitrogen [Mass/Vol]15.0 mg/dL7.0-18.0[facility] HospitalUrea nitrogen/Creatinine [Mass ratio]21.7 mg/mgMercy Health St. [facility] Hospital Laboratory - Hematology and Cell countsOrdered By: Flynn Urias on 03-26-2025 ESR (Bld) [Velocity]48 mm/hHigh<=30[facility] HospitalImmature granulocytes/100 WBC (Bld)0.3 %0.0-0.5FSelect Medical Specialty Hospital - Cleveland-Fairhill Leukocytes [#/volume] corrected for nucleated erythrocytes in Blood by Automated counOrdered By: Flynn Urias on 70-53-8396SDJ corrected for nucl RBC Auto (Bld) [#/Vol]10.0 10 3/uL4.0-11.0[facility] HospitalLymphocytes Auto (Bld) [#/Vol]Ordered By: Flynn Urias on 12-80-1977Xidyzowtoxa (Bld) [#/Vol]2.7 10 3/uL1.2-3.8[facility] HospitalLymphocytes/100 WBC Auto (Bld)Ordered By: Flynn Urias on 78-64-2865Fdqyowdihfe/100 WBC (Bld)27.2 % 20.5-60.0[facility] Auto (RBC) [Entitic mass]Ordered By: Flynn Urias on 30-27-9891KVY (RBC) [Entitic mass]27.2 pg26.7-34.0[facility] CenterHC Auto (RBC) [Mass/Vol]Ordered By: Flynn Urias on 34-43-0651KNCY (RBC) [Mass/Vol]30.7 g/dL29.9-35.2FSelect Medical Specialty Hospital - Cleveland-FairhillMCV Auto (RBC) [Entitic vol]Ordered By: Flynn Urias on 96-34-0966BJI (RBC) [Entitic vol]88.7 fL81.0-99.0[facility] HospitalMonocytes Auto (Bld) [#/Vol]Ordered By: Flynn Urias on 00-72-3045Yqxqhijwj (Bld) [#/Vol] 0.5 10 3/uL0.3-0.8[facility] HospitalMonocytes/100 WBC Auto (Bld) Ordered By: Flynn Urias on 94-21-5279Yvwiacvom/100 WBC (Bld)5.2 %1.7-12.[address] [facility] HospitalNeutrophils Auto (Bld) [#/Vol]Ordered By: Flynn Urias on 60-11-1129Tmynekhqaal (Bld) [#/Vol]6.4 10 3/uL1.4-6.5FSelect Medical Specialty Hospital - Cleveland-FairhillNeutrophils/100 WBC Auto (Bld)Ordered By: Flynn Urias on 55-79-0658Pvbhadfvgwr/100 WBC (Bld)64.0 %43.0-75.0[facility] HospitalNo Panel InformationOrdered By: Flynn Urias on 79-50-8050V-Reactive Protein, Quantitative3.94 mg/dLHigh<=0.50[facility] Eosinophils # (Auto)0.3 10 3/uL0.0-0.7FSelect Medical Specialty Hospital - Cleveland-FairhillImmature Granulocyte # (Auto)0.03 10 3/uL0.00-0.03[facility] Phosphorus Level3.5 mg/dL2.6-4.7FSelect Medical Specialty Hospital - Cleveland-FairhillPlatelet mean volume Auto (Bld) [Entitic vol]Ordered By: Flynn Urias on 40-84-5240Wzzhbosl mean volume (Bld) [Entitic vol]12.8 fL9.5-13.5FSelect Medical Specialty Hospital - Cleveland-Fairhill Platelets Auto (Bld) [#/Vol]Ordered By: Flynn Urias on 36-66-5477Tbknslwlk (Bld) [#/Vol]146 10 3/wKDti277-879QlwpxhkopMercy Health St. Elizabeth Youngstown HospitalRBC Auto (Bld) [#/Vol]Ordered By: Flynn Urias on 96-20-5029XNT (Bld) [#/Vol]5.92 10 6/uLHigh4.20-5.40[facility] Hospitalerum or plasma anion gap determinationOrdered By: Flynn Urias on 80-88-6244Lslic gap [Moles/Vol]8.7 mmol/LFSelect Medical Specialty Hospital - Cleveland-FairhillBasophils Auto (Bld) [#/Vol]Ordered By: Price Arora on 16-48-1091Bdmaufkkc (Bld) [#/Vol]0.1 10 3/uL0.0-0.1FSelect Medical Specialty Hospital - Cleveland-FairhillBasophils/100 WBC Auto (Bld)Ordered By: Price Arora on 70-82-5237Wqqmhrvzd/100 WBC (Bld)0.4 %0.2-2.0[facility] Eosinophils/100 WBC Auto (Bld)Ordered By: Price Arroa on 03-25-2025 Eosinophils/100 WBC (Bld)2.4 %0.9-7.0[facility] Erythrocyte distribution width Auto (RBC) [Ratio]Ordered By: Price Arora on 38-81-6729Oevdiqivfnw distribution width (RBC) [Ratio]16.4 %High11.0-15.[address] [facility] HospitalGlomerular filtration rate (GFR) estimation in non- AmericanOrdered By: Price Arora on 98-72-2980HZC/1.73 sq M.predicted among non-blacks MDRD (S/P/Bld) [Vol rate/Area]mL/min/{1.73_m2}>=60 mL/min/1.73m 2FSelect Medical Specialty Hospital - Cleveland-FairhillHematocrit Auto (Bld) [Volume fraction]Ordered By: Price Arora on 99-77-7041Jvivglzdur (Bld) [Volume fraction]56.6 %High36.0-48.0[facility] HospitalHemoglobin [Mass/volume] in BloodOrdered By: Price Arora on 29-87-7325Omksdkfvfe (Bld) [Mass/Vol]17.4 g/uFQfad45.0-16.0[facility] HospitalLaboratory - Chemistry and Chemistry - challengeOrdered By: Price Arora on 03-25-2025 Bilirubin Ql (U)NegativeNEGATIVEMercy Health St. Elizabeth [facility] HospitalGlucose (U) [Mass/Vol]NegativeNEGATIVEMercy Health St. [facility] HospitalKetones Ql (U) NegativeNEGATIVEMercy Health St. [facility] HospitalpH (U)8.0 [pH]5.0-9.0[facility] Hospitalpecific gravity (U) [Rel density]1.0201.005-1.[address] [facility] HospitalUrobilinogen Qn (U)1.0 {Little'U}/dL0.2-1.[address] [facility] HospitalCalcium [Mass/Vol]9.2 mg/dL8.5-10.1FSelect Medical Specialty Hospital - Cleveland-FairhillChloride [Moles/Vol]106 mmol/U48-378JyohewrzeMercy Health St. Elizabeth Youngstown HospitalCO2 [Moles/Vol]36.9 mmol/LHigh21.0-32.0[facility] HospitalCreatinine [Mass/Vol]0.86 mg/dL0.55-1.02[facility] GFR/1.73 sq M.predicted MDRD (S/P/Bld) [Vol rate/Area]mL/min/{1.73_m2}>=60 mL/min/1.73m 2FSelect Medical Specialty Hospital - Cleveland-FairhillGlucose [Mass/Vol]164 mg/dLHigh 74-106[facility] HospitalPotassium [Moles/Vol]4.0 mmol/L3.5-5.1 [facility] Hospitalodium [Moles/Vol]144 mmol/I055-824TyonjlfdzMercy Health St. Elizabeth Youngstown HospitalUrea nitrogen [Mass/Vol]14.0 mg/dL7.0-18.0[facility] HospitalUrea nitrogen/Creatinine [Mass ratio]16.3 mg/mgMercy Health St. Elizabeth Youngstown HospitalLaboratory - Hematology and Cell countsOrdered By: Price Arora on 77-27-8424Eibtngmo granulocytes/100 WBC (Bld)0.3 %0.0-0.[address] [facility] HospitalLaboratory - Specimen informationOrdered By: Price Arora on 16-53-0087Wtvipgqahw (U)CLEARCLEARFSelect Medical Specialty Hospital - Cleveland-FairhillColor (U)LT. YELLOWYELLOWMercy Health St. Elizabeth Youngstown HospitalLaboratory - UrinalysisOrdered By: Price Arora on 22-42-6292Wdkxsmk casts LM Ql (Urine sed) RAREMercy Health St. Elizabeth Youngstown HospitalLeukocyte esterase Test strip Ql (U) NegativeNEGATIVEMercy Health St. Elizabeth Youngstown HospitalMucus Ql (Urine sed)TRACE AbnormalNONE SEENMercy Health St. Elizabeth Youngstown HospitalNitrite Ql (U)NegativeNEGATIVE [facility] HospitalProtein Ql (U)100 mg/dLAbnormalNEG/TRACE [facility] HospitalLeukocytes [#/volume] corrected for nucleated erythrocytes in Blood by Automated counOrdered By: Price Arora on 03-25-2025 WBC corrected for nucl RBC Auto (Bld) [#/Vol]11.8 10 3/uLHigh4.0-11.0[facility] HospitalLymphocytes Auto (Bld) [#/Vol]Ordered By: Price Arora on 42-81-3971Dfarxqfaazz (Bld) [#/Vol]3.1 10 3/uL1.2-3.8[facility] HospitalLymphocytes/100 WBC Auto (Bld)Ordered By: Price Arora on 09-62-7016Pgplejfeebz/100 WBC (Bld)26.4 %20.5-60.0[facility] Auto (RBC) [Entitic mass]Ordered By: Price Arora on 58-42-5756UBZ (RBC) [Entitic mass]27.5 pg26.7-34.0[facility] CenterHC Auto (RBC) [Mass/Vol]Ordered By: Price Arora on 83-30-8291JIQT (RBC) [Mass/Vol]30.7 g/dL29.9-35.2FSelect Medical Specialty Hospital - Cleveland-FairhillMCV Auto (RBC) [Entitic vol] Ordered By: Price Arora on 74-04-7971VLJ (RBC) [Entitic vol]89.4 fL81.0-99.[address] [facility] HospitalMonocytes Auto (Bld) [#/Vol]Ordered By: Price Arora on 95-08-8090Ufrijtimt (Bld) [#/Vol]0.6 10 3/uL0.3-0.8[facility] HospitalMonocytes/100 WBC Auto (Bld)Ordered By: Price Arora on 58-51-3714Rgxyscfcw/100 WBC (Bld)5.2 %1.7-12.0[facility] Neutrophils Auto (Bld) [#/Vol]Ordered By: Price Arora on 98-86-1056Alhodwbilgc (Bld) [#/Vol]7.7 10 3/uLHigh1.4-6.5FSelect Medical Specialty Hospital - [facility]hill Neutrophils/100 WBC Auto (Bld)Ordered By: Price Arora on 03-25-2025 Neutrophils/100 WBC (Bld)65.3 %43.0-75.0[facility] HospitalNo Panel InformationOrdered By: Price Arora on 76-24-4061Vuchx BacteriaTRACE #/HPFAbnormalNONE SEENMercy Health St. Elizabeth Youngstown HospitalUrine Culture ReflexedKettering Health – Soin Medical CenterUrine Occult BloodNegativeNEGATIVEMercy Health St. Elizabeth [facility] HospitalUrine Other CastsSEEN #/LPFAbnormalNONE [facility] HospitalUrine Other CrystalsNone Seen #/HPFNone [facility] HospitalUrine RBC0-2 #/HPF0-2FSelect Medical Specialty Hospital - [facility] Urine Squamous Epithelial CellsFEW #/LPFAbnormalNONE/RAREMercy Health St. [facility] HospitalUrine WBC0-2 #/HPFAbnormalNONE [facility] County HospitalEosinophils # (Auto)0.3 10 3/uL0.0-0.7FSelect Medical Specialty Hospital - [facility] Immature Granulocyte # (Auto)0.04 10 3/uLHigh0.00-0.03[facility] HospitalPlatelet mean volume Auto (Bld) [Entitic vol]Ordered By: Price Arora on 44-28-0569Uscbfqsu mean volume (Bld) [Entitic vol]12.4 fL9.5-13.5FSelect Medical Specialty Hospital - Cleveland-FairhillPlatelets Auto (Bld) [#/Vol]Ordered By: Price Arora on 81-26-7369Dynxyebfh (Bld) [#/Vol]160 10 3/zT495-383EzkyfixveMercy Health St. Elizabeth Youngstown HospitalRBC Auto (Bld) [#/Vol]Ordered By: Priceoh Arora on 35-97-9195MZR (Bld) [#/Vol]6.33 10 6/uLHigh4.20-5.40[facility] Hospitalerum or plasma anion gap determinationOrdered By: Price Arora on 60-07-7199Jsskl gap [Moles/Vol]5.1 mmol/LFSelect Medical Specialty Hospital - Cleveland-FairhillVascular Office/Clinic Noteon 38-95-1451Gbacwuyn Office/Clinic NoteChief Complaint lle wound History of [...] has had testing done at the [facility] last year which she brought with [...] Electronically signed by Omero Santana 03/23/25 12:01 [facility] HospitalPodiatry Office/Clinic Noteon 73-62-4589Vsvupllq Office/Clinic NoteThe content of this note was generated by an [employer] (AI) language dictation. The patient or guardian [...] of this note was generated by an [employer] (AI) language dictation. The patient or guardian [...] of this note was generated by an [employer] intelligence (AI) language dictation. The patient or [...] wraps (gauze, tila bandage, Coban II, tuba berry picker), Dakins solution, a 40-daycourse of antibiotics, and [...] other blood thinners. The patient resides in [place]. Review of Systems Constitutional: Negative for signs [...] their lower extremities Positi (more content not included)...[facility] HospitalComment on above:Order Comment: Missing Attachment [id number] Can be viewed in source systemXR Tibia/Fibula Righton 46-68-0157WG Tibia/Fibula Right2 views right tib- fib demonstrate: [...] Is Signed, Electronically Signed in Other Vendor System)[facility] HospitalResults Follow-Upon 88-21-9598Mgqbzor Follow-Up [id number] Mitzi Macias 1970 F Date Provider Department Center 02/04/2025 Mikaela-AMI ORO CARDIOLOGY None Family History Problem Relation Age of Onset Heart attack Paternal Grandmother Family Status - Relation Status Age at Mother Father Paternal GrandmotherNSelect Medical OhioHealth Rehabilitation HospitalOrders Onlyon 36-50-6105Fuwpby [id number] Mitzi Macias 1970 F Date Provider Department Center 01/30/2025 [id number], HISTORICAL [facility] Family History Problem Relation Age of Onset Heart attack Paternal Grandmother Family Status - Relation Status Age at Mother Father Paternal GrandmotherNSelect Medical [facility] Rehabilitation HospitalCA ECHO DOPPLER COMPLETEon 69-30-9033BwuKinde, [place] [address] Cardiology Report Signed Patient: MITZI MACIAS MR#: [id number] : 1970 Acct:[id number] Age/Sex: 54 / F ADM Date: 01/29/25 Loc: CARD Attending Dr: AMI ORO APRN Ordering Physician: AMI ORO APRN Date of Service: 01/29/25 Procedure(s): CA echo doppler complete Accession Number(s): [id number] cc: Mckayla Blas CULLED FRUIT PACKER; AMI ORO APRN Patient Name: MITZI MACIAS MR#: [id number] : 1970 Exam Date: 01/29/2025 Ordering Doctor: AMI ORO CRAB BUTCHER ECHOCARDIOGRAM REPORT PROCEDURE: CA ECHO DOPPLER COMPLETE [...] HERRERA Signed By: 01/29/251839 DD/ 39 TD/TT: 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:TBHRadiology, Radiologist, - 01/29/2025 [place] [address] Cardiology Report Signed Patient: MITZI MACIAS MR#: [id number] : 1970 Acct:[id number] Age/Sex: 54 / F ADM Date: 01/29/25 Loc: CARD Attending Dr: AMI ORO APRN Ordering Physician: AMI ORO APRN Date of Service: 01/29/25 Procedure(s): CA echo doppler complete Accession Number(s): [id number] cc: Mckayla Blas CULLED FRUIT PACKER; AMI ORO APRN Patient Name: MITZI MACIAS MR#: [id number] : 1970 Exam Date: 01/29/2025 Ordering Doctor: [...] HERRERA Signed By: 01/29/251839 DD/ 39 TD/TT: 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: [facility] HospitalRadiology Study observation (narrative)[facility] ECHO DOPPLER COMPLETEOrdered By: Radiologist Radiology on 90-81-6033ZOYQJefferson Memorial Hospital Work Phone: Glucose (Bld) [Mass/Vol]on 54-63-6848Oyzbzgs Blood, KQZ448 mg/dLJefferson Memorial HospitalLaboratory - Hematology and Cell countson 01-29-2025 HbA1c (Bld) [Mass fraction]8.4 %[facility] HospitalNo Panel Informationon 01-29-2025 Interpretation and review of laboratory resultsAbnormalSaint Mary's Hospital of Blue Springs HealthcareOffice Visiton 90-52-2139Vlwvfn-up [id number] iMtzi Macias 1970 F Date Provider Department Center 01/06/2025 Mikaela-AMI ORO Wilfredo Rojas Family History Problem Relation Age of Onset Heart attack Paternal Grandmother Family Status - Relation Status Age at Mother Father Paternal Grandmother Level of Service:05506 [place] OFFICE/OUTPATIENT ESTABLISHED MOD MDM 30 MIN Reason for Visit and Comments: Congestive Heart Failure [127] Hypertension [142655] Hyperlipidemia [182]NormalOhioHealth Berger Hospital36on Regarding lab results from 10/08/2024: MD Mickie Merritt MA Lipids, ALT AST, and BMP are normal. HbA1c was not performed. Continue current management. LM on patient's VM.NormalOhioHealth Berger HospitalGlucose (Bld) [Mass/Vol]Ordered By: Mica Sauceda on 17-94-7476Nuyeecz Blood, POC97 mg/dLNONE HealthcareLaboratory - Hematology and Cell countson 96-11-1750OpU0u (Bld) [Mass fraction]7.4 %NOMS HealthcareNo Panel InformationOrdered By: Mica Sauceda on 05-89-0102WHYL HealthcareTBH UA (CLEAN/CATCH) MICROSCOPIC IF INDICATEon 75-15-9527DDRBQWKGT URINENegativeNEGATIVENOMS HealthcareBLOOD URINENegative NEGATIVENOMS HealthcareClarity (U)CLEARCLEARNOMS HealthcareColor (U)YELLOWYELLOW NOMS HealthcareGLUCOSE URINE UANegativeNEGATIVE mg/dLNOMS Healthcare Interpretation and review of laboratory resultsAbnormalNOMS HealthcareKetones Ql (U)NegativeNEGATIVE mg/dLNOMS HealthcareLeukocyte esterase Test strip Ql (U) NegativeNEGATIVENOMS HealthcareNITRITE URINENegativeNEGATIVENOMS HealthcarepH (U)5.5 [pH]5.0 - 9.0NOMS HealthcareProtein (U) [Mass/Vol]30 mg/dLAbnormal NEG/TRACENOMS HealthcareSPECIFIC GRAVITY URINE>=1.155Cqncxwfh4.005 - 1.025NOMS HealthcareURINE MICROSCOPIC INDICATEDYESNOMS HealthcareUROBILINOGEN URINE1.0 EU/dL0.2 - 1.0 EU/dLNOMS HealthcareCLINISYNPHANEUF HOSPITAL HealthcareALL CBC WITH AUTO DIFFon 74-38-6231GUNTEWGRI ABSOLUTE AUTO0.1NOMS HealthcareBasophils/100 WBC (Bld)0.5 %0.2 - 2.0 %NOMS HealthcareEosinophils/100 WBC (Bld)1.9 %0.9 - 7.0 % NOMS HealthcareErythrocyte distribution width (RBC) [Ratio]14.6 %11.0 - 15.0 % NOMS HealthcareHematocrit (Bld) [Volume fraction]50.9 %High36.0 - 48.0 %NOMS HealthcareHemoglobin (Bld) [Mass/Vol]16.1 g/cEKypi14.0 - 16.0 g/dLNONE HealthcareIMMATURE GRANULOCYTES ABS AUTO0.04HighNONE HealthcareImmature granulocytes/100 WBC (Bld)0.3 %0.0 - 0.5 %NOMS HealthcareInterpretation and review of laboratory resultsAbnormalNONE HealthcareLYMPHOCYTES ABSOLUTE AUTO3.2 NOMS HealthcareLymphocytes/100 WBC (Bld)25.1 %20.5 - 60.0 %NOMRusk Rehabilitation CenterMCH (RBC) [Entitic mass]29.2 pg26.7 - 34.0 pgNOShriners Hospitals for ChildrenMCHC (RBC) [Mass/Vol] 31.6 g/dL29.9 - 35.2 g/dLJefferson Memorial HospitalMCV (RBC) [Entitic vol]92.2 fL81.0 - 99.0 fLNONE HealthcareMONOCYTES ABSOLUTE AUTO0.7NONE HealthcareMonocytes/100 WBC (Bld)5.2 %1.7 - 12.0 %NOMS HealthcareNEUTROPHILS ABSOLUTE AUTO8.6HighNONE HealthcareNeutrophils/100 WBC (Bld)67 %43.0 - 75.0 %NOMS HealthcarePlatelet mean volume (Bld) [Entitic vol]12.8 fL9.5 - 13.5 fLNOShriners Hospitals for ChildrenTBH EO #0.2NOMS HealthcareTBH [id number] HealthcareTB RBC5.52HighNOMS HealthcareTBH WBC12.8 HighNONE HealthcareCLINISYNCNOKLAHOMA FORENSIC CENTER – [facility]INITA HealthcareOffice Visiton 94-40-8173Xoyact-up [id number] Mitzi Macias 1970 F Date Provider Department Center 08/08/2024 [id number], SAMTROY [facility] Family History Problem Relation Age of Onset Heart attack Paternal Grandmother Family Status - Relation Status Age at Paternal Grandmother Level of Service:44475 [place] OFFICE/OUTPATIENT ESTABLISHED MOD MDM 30 MIN Reason for Visit and Comments: Congestive Heart Failure [127] - Denies chest pain, SOB, and palpitations. Hypertension [623721] Hyperlipidemia [182] LVH [Other] Edema [[id number]] - Denies worsening edema. She sees wound care for RLE ulcer. She was seeing the vein specialists here in town but they are moving to [place] in a few weeks.[facility] HospitalProvider Letteron 78-82-7191Ymapspzz LetterProvider Letter June 11, 2024 MITZI MACIAS [address] [place] [id number] : 1970 To Whom It May Concern, Please excuse above patient from work. Date of Illness: From: 06/11/24 8:30am To: 06/11/24 12:30pm Comments: _Brian Macias was with his for her doctor's appointment. Sincerely, Andra Forrester, Surgical SchedulerNormMansfield HospitalUrology Office/Clinic Noteon 28-52-8568Kyxwrqi Office/Clinic NoteUrology Office/Clinic Note Chief Complaint 18 mth HPI Staff 53 yo here 18 month f/u CT for adrenal mass. [facility] Previous DX: adrenal mass, kidney stone, [...] [facility] [address], [place] [address]- Additional Instructions: [address] AP [...] TIDAC potassium chloride 10 (more content not included)...[facility] Memorial HospitalComment on above:Result Comment: Electronically Signed By: Elbert ARAUZ MD\.br\Date and Time Signed: 06/11/24 10:55 EST\.br\Electronically Co- Signed By: Maria Elena Negrete\.br\Date and Time Co-Signed: 06/11/24 10:53 EST Glucose (Bld) [Mass/Vol]Ordered By: Mica Sauceda on 24-57-3385Opurtqt Blood, PEI307 mg/dLNOMS HealthcareLaboratory - Hematology and Cell countson 05-27-2024 HbA1c (Bld) [Mass fraction]9.2 %NOMS HealthcareNo Panel InformationOrdered By: Mica Sauceda on 69-25-9051KLSZ HealthcareCT ABDOMEN PELVIS W CONon 05-12-2024 [place] [address] CT Scan Report Signed Patient: MITZI MACIAS MR#: [id number] : 1970 Acct:[id number] Age/Sex: 53 / F ADM Date: 05/12/24 Loc: CT Attending Dr: Gaviota MAYERS Ordering Physician: Gaviota Adames Date of Service: 05/12/24 Procedure(s): CT abdomen pelvis w con Accession Number(s): [id number] cc: Mckayla Blas NP [place] [address] Patient Name: MITZI MACIAS MRN: [id number] date: 1970 Sex: F Assigned Patient Location: CT Current Patient Location: Accession/Order Number: [id number] Exam Date: 05/12/2024 11:15 Report Date: 05/12/2024 [...] Signed By: 05/12/24 1419 DD/ 1416 TD/TT: 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:SONNYHRadiology, Radiologist, - 05/12/2024 [place] [address] CT Scan Report Signed Patient: MITZI MACIAS MR#: [id number] : 1970 Acct:[id number] Age/Sex: 53 / F ADM Date: 05/12/24 Loc: CT Attending Dr: Gaviota AMYERS Ordering Physician: Gaviota Adames Date of Service: 05/12/24 Procedure(s): CT abdomen pelvis w con Accession Number(s): [id number] cc: Mckayla Blas NP [address] [place] [id number] Patient Name: MITZI MACIAS MRN: [id number] date: 1970 Sex: F Assigned Patient Location: CT Current Patient Location: Accession/Order Number: [id number] Exam Date: 05/12/2024 11:15 Report Date: 05/12/2024 [...] Signed By: 05/12/24 1419 DD/ 15 TD/TT: 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: [facility] HOSPITALHenna HealthcareRadiology Study observation (narrative)[facility] HospitalCT ABDOMEN PELVIS W CONOrdered By: Radiologist Radiology on 76-58-9041KIGVJefferson Memorial Hospital Work Phone: LUMBAR SPINE WO CONon 68-76-[place]183[place] [id number] Magnetic Resonance Report Signed Patient: MITZI MACIAS MR#: [id number] : 1970 Acct:[id number] Age/Sex: 53 / F ADM Date: 05/12/24 Loc: MRI Attending Dr: Angela Cochran NP Ordering Physician: Angela Cochran NP Date of Service: 05/12/24 Procedure(s): MR lumbar spine wo con Accession Number(s): [id number] cc: Mckayla Blas [employer]ER; Angela Cochran NP [address] [address] Patient Name: MITZI MACIAS MRN: [id number] date: 1970 Sex: F Assigned Patient Location: MRI Current Patient Location: CT Accession/Order Number: [id number] Exam Date: 05/12/2024 09:21 Report Date: 05/12/2024 [...] Signed By: 05/12/24 1443 DD/ 144 TD/TT: 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:TBHRadiology, Radiologist, MD - 05/12/2024 [place] [address] Magnetic Resonance Report Signed Patient: MITZI MACIAS MR#: [id number] : 1970 Acct:[id number] Age/Sex: 53 / F ADM Date: 05/12/24 Loc: MRI Attending Dr: Angela Cochran NP Ordering Physician: Angela Cochran NP Date of Service: 05/12/24 Procedure(s): MR lumbar spine wo con Accession Number(s): [id number] cc: Mckayla Blas NP; Angela Cochran NP [facility] [place] [id number] Patient Name: MITZI MACIAS MRN: [id number] date: 1970 Sex: F Assigned Patient Location: MRI Current Patient Location: CT Accession/Order Number: [id number] Exam Date: 05/12/2024 09:21 Report Date: 05/12/2024 [...] M.D. Signed By: 05/12/241442 DD/ 40 TD/TT: 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: CARLOS HealthcareRadiology Study observation (narrative)[facility] LUMBAR SPINE WO CONOrdered By: Radiologist Radiology on 65-06-0297MLVG Healthcare Work Phone: TBH CREATININEon 40-58-6362Lqitmwnyto [Mass/Vol]0.92 mg/dL0.55 - 1.02 mg/dLNOMS HealthcareGFR/1.73 sq M.predicted CKD-EPI (S/P/Bld) [Vol rate/Area]>60>=60 mL/min/1.73m 2NOMS HealthcareTBH EGFR-NON AF ZAMBIAN>60 >=60 mL/min/1.73m 2NOMS HealthcareCLINISYNCNOMS HealthcareSEGMENTAL BLOOD PRESSUREon 41-07-0470[place], [place] [address] Vein Report Signed Patient: MITZI MACIAS MR#: [id number] : 1970 Acct:[id number] Age/Sex: 53 / F ADM Date: 04/24/24 Loc: Attending Dr: Comfort Pretty Ordering Physician: Comfort Pretty Date of Service: 04/24/24 Procedure(s): SEGMENTAL PRESSURES Accession Number(s): [id number] cc: Mckayla Blas [employer]; Comfort Pretty [place] [address] Patient Name: MITZI MACIAS MRN: [id number] date: 1970 Sex: F Assigned Patient Location: Current Patient Location: Accession/Order Number: [id number] Exam Date: 04/24/2024 10:25 Report Date: 04/24/2024 11:20 At the request of: COMFORT PRETTY Procedure: SEGMENTAL PRESSURES EXAM: SEGMENTAL PRESSURES HISTORY: R09.89 COMPARISON: None. FINDINGS: Segmental pressures presented as follows (right, left) in mmHg. Brachial: 169, 166 Upper thigh: Not obtained Lower thigh: 129, 119 Calf: 124, 106 DPA: 108, 105 SCOW HAND: 100, 91 1st Toe: 124, 142 ISABELLE: [...] Signed By: 04/24/24 1123 DD/ 19 TD/TT: 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:SONNYHRadiology, Radiologist, - 04/24/2024 [place] [address] Vein Report Signed Patient: MITZI MACIAS MR#: [id number] : 1970 Acct:[id number] Age/Sex: 53 / F ADM Date: 04/24/24 Loc: VC Attending Dr: Comfort Pretty Ordering Physician: Comfort Pretty Date of Service: 04/24/24 Procedure(s): VC SEGMENTAL PRESSURES Accession Number(s): [id number] cc: Mckayla Blas [employer]; Comfort Pretty [place] [address] Patient Name: MITZI MACIAS MRN: [facility]:[id number] date: 1970 Sex: F Assigned Patient Location: Current Patient Location: Accession/Order Number: [id number] Exam Date: 04/24/2024 10:25 Report Date: 04/24/2024 11:20 At the request of: COMFORT PRETTY Procedure: VC SEGMENTAL PRESSURES EXAM: VC SEGMENTAL PRESSURES HISTORY: R09.89 COMPARISON: None. FINDINGS: Segmental pressures presented as follows (right, left) in mmHg. Brachial: 169, 166 Upper thigh: Not obtained Lower thigh: 129, 119 Calf: 124, 106 DPA: 108, 105 SCOW HAND: 100, 91 1st Toe: 124, 142 ISABELLE: [...] Signed By: 04/24/24 1123 DD/ 1120 TD/TT: 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: CARLOS HealthcareRadiology Study observation (narrative)[facility] HealthcareSEGMENTAL BLOOD PRESSUREOrdered By: Radiologist Radiology on 02-77-6849LMKA Healthcare Work Phone: mm TOMOSYNTHESIS SCREENING BIon 76-13-0438LmxKinde, [place] [address] Mammography Report Signed Patient: MITZI MACIAS MR#: [id number] : 1970 Acct:[id number] Age/Sex: 53 / F ADM Date: 12/13/23 Loc: MAMMO Attending Dr: Mckayla Blas NP Ordering Physician: Mckayla Blas NP Results: Date of Service: 12/13/23 Follow Up: Procedure(s): MM tomosynthesis screening BI Accession Number(s): [id number] cc: Mckayla Blas NP Patient Name: MITZI MACIAS MR#: [id number] : 1970 Exam Date: 12/13/2023 Ordering Doctor: [...] Signed By: 12/14/23 1122 DD/ 1121 TD/TT: 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:TBHRadiology, Radiologist, MD - 12/14/2023 [place] [address] Mammography Report Signed Patient: MITZI MACIAS MR#: [id number] : 1970 Acct:[id number] Age/Sex: 53 / F ADM Date: 12/13/23 Loc: MAMMO Attending Dr: Mckayla Blas NP Ordering Physician: Mckayla Blas NP Results: Date of Service: 12/13/23 Follow Up: Procedure(s): MM tomosynthesis screening BI Accession Number(s): [id number] cc: Mckayla Blas NP Patient Name: MITZI MACIAS MR#: [id number] : 1970 Exam Date: 12/13/2023 Ordering Doctor: [...] Signed By: 12/14/23 1122 DD/ 1121 TD/TT: 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: [facility] HospitalRadiology Study observation (narrative)[facility] TOMOSYNTHESIS SCREENING BIOrdered By: Radiologist Radiology on 98-96-7662IYNTJefferson Memorial Hospital Work Phone: bLOOD CULTURE 1on 10-63-1227WEGPS CULTURE 1 Blood Culture 1 NG5D NO GROWTH AT 5 DAYS.^NO GROWTH AT 5 DAYS. [facility] HospitalBLOOD CULTURE 2on 80-97-5190LBJGS CULTURE 2 Blood Culture 2 NG5D NO GROWTH AT 5 DAYS.^NO GROWTH AT 5 DAYS. [facility] HospitalNo Panel Informationon 78-17-5405YBTLVCUFRBMKZ HealthcareECG 12-LEADon 78-11-9624ZggKinde, [place] [address] Electrocardiograph Report Signed Patient: MITZI MACIAS MR#: [id number] : 1970 Acct:[id number] Age/Sex: 53 / F ADM Date: 08/31/23 Loc: [place] 214-[address]: Jacqueline Becerra D.O. 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 Signed By: 09/02/23 0732 DD/ 180 TD/TT: 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:TBHRadiology, Radiologist, - 09/02/2023 [place] [address] Electrocardiograph Report Signed Patient: MITZI MACIAS MR#: [id number] : 1970 Acct:[id number] Age/Sex: 53 / F ADM Date: 08/31/23 Loc: [place] 214-[address]: Jacqueline Becerra D.O. 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 Signed By: 09/02/23 0732 DD/ 1808 TD/TT: 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: CARLOS [facility] 12-LEADOrdered By: Radiologist Radiology on 76-16-9422[facility] [employer] Work Phone: EC 12-LEADon 74-97-0817Szkgdphwz Study observation (narrative)CARLOS [facility] AUTO DIFFon 10-49-5819UQGS #0.0 103/ulNormal 0.0-0.1The [facility] HospitalComment on above:Performed By: #### CBC #### [facility] [address] [place] [address] Dr. Ashlie HillsBasophils/100 WBC (Bld)0.1 %Critically low0.2-2.0The [facility] HospitalComment on above:Performed By: #### CBC #### [facility] [address] [place] [address] Dr. Ashlie Mcintosh #0.0 103/ulNormal0.0-0.7The [facility] HospitalComment on above: Performed By: #### CBC #### [facility] [address] [place] [address] Dr. Ashlie Grahamosinophils/100 WBC (Bld)0.0 %Critically low0.9-7.0The [facility] HospitalComment on above:Performed By: #### CBC #### [facility] [address] [place] [address] Dr. Ashlie Grahamrythrocyte distribution width (RBC) [Ratio]14.9 %Onrmvy07.0-15.0 The [facility] HospitalComment on above:Performed By: #### CBC #### [facility] [address] [place] [address] Dr. Ashlie HillsHematocrit (Bld) [Volume fraction]46.2 %Mnvbjc08.0-48.0[facility] OhioComment on above:Performed By: #### CBC #### [facility] [address] [place] [address] Dr. Ashlie HillsHemoglobin (Bld) [Mass/Vol]14.7 g/kAHfldkj90.0-16.0The [facility] HospitalComment on above:Performed By: #### CBC #### [facility] [address] [place] [address] Dr. Ashlie Hunter #0.06 10e3/ulCritically high0.00-0.03The [facility] Comment on above:Performed By: #### CBC #### [facility] [address] [place] [address] Dr. Ashlie Hunter %0.4 %Normal0.0-0.5The [facility] HospitalComment on above: Performed By: #### CBC #### [facility] [address] [place] [address] Dr. Ashlie Swenson #1.3 103/ulNormal1.2-3.8The [facility] HospitalComment on above:Performed By: #### CBC #### [facility] [address] [place] [address] Dr. Ashlie Dsouzahocytes/100 WBC (Bld)9.4 %Critically low20.5-60.0The [facility] HospitalComment on above:Performed By: #### CBC #### [facility] [address] [place] [address] Dr. Ashlie GhoshUAL DIFF REQNONormalThe [facility] HospitalComment on above: Performed By: #### CBC #### [facility] [address] [place] [address] Dr. Ashlie Mckeon (RBC) [Entitic mass]28.4 egVnoega94.7-34.0The [facility] HospitalComment on above:Performed By: #### CBC #### [facility] [address] [place] [address] Dr. Ashlie Mckeon (RBC) [Mass/Vol]31.8 g/tDYsejgp34.9-35.2The [facility] HospitalComment on above:Performed By: #### CBC #### [facility] [address] [place] [address] Dr. Ashlie MckeonV (RBC) [Entitic vol]89.4 cAGrxbcp83.0-99.0The [facility] HospitalComment on above:Performed By: #### CBC #### [facility] [address] [place] [address] Dr. Ashlie Killian #0.5 103/ulNormal0.3-0.8The [facility] HospitalComment on above:Performed By: #### CBC #### [facility] [address] [place] [address] Dr. Ashlie Palominoocytes/100 WBC (Bld)3.4 %Normal1.7-12.0The [facility] Comment on above:Performed By: #### CBC #### [facility] [address] [place] [address] Dr. Ashlie Olsen #11.8 103/ulCritically high1.4-6.5The [facility] Comment on above:Performed By: #### CBC #### [facility] [address] [place] [address] Dr. Ashlie Quiñonesutrophils/100 WBC (Bld)86.7 %Critically high43.0-75.0The [facility] HospitalComment on above:Performed By: #### CBC #### [facility] [address] [place] [address] Dr. Ashlie Lantigualet mean volume (Bld) [Entitic vol]12.6 fLNormal9.5-13.5The [facility] HospitalComment on above:Performed By: #### CBC #### [facility] [address] [place] [address] Dr. Ashlie HillsPLT133 103/ulCritically mua809-660Agt [facility] HospitalComment on above:Performed By: #### CBC #### [facility] [address] [place] [address] Dr. Ashlie HillsRBC5.17 106/ulNormal4.20-5.40The [facility] HospitalComment on above:Performed By: #### CBC #### [facility] [address] [place] [address] [address] Ashlie HillsWBC13.6 103/ulCritically high4.0-11.0The [facility] HospitalComment on above:Performed By: #### CBC #### [facility] [address] [place] [address] [address] Ashlie HillsMAGNESIUMon 90-86-4924Icvryvphl [Mass/Vol]2.2 mg/dLNormal1.8-2.4 The [facility] HospitalComment on above:Performed By: #### INFLUAB #### [facility] [address] [place] [address] [address] Ashlie HillsPOINT OF CARE GLUCOSEon 23-32-7586Nkzaaif [Mass/Vol]340 mg/dL Critically iyhe25-881Ida [facility] HospitalComment on above:Performed By: #### POCGLUC #### [facility] [address] [place] [address] Dr. Ashlie HillsGlucose [Mass/Vol]276 mg/dLCritically cceb78-107Mcd [facility] HospitalComment on above:Performed By: #### CBC #### [facility] [address] [place] [address] [address] Ashlie HillsGlucose [Mass/Vol]333 mg/dLCritically vxsc16-652Htx [facility] HospitalComment on above:Performed By: #### CBC #### [facility] [address] [place] [address] Dr. Ashlie HillsPROF CHEM 8 (BAS METB)on 95-47-8409Xcnbn gap [Moles/Vol]10.9 mmol/LNormalThe [facility] HospitalComment on above:Performed By: #### INFLUAB #### [facility] [address] [place] [address] Dr. Ashlie HillsCalcium [Mass/Vol]9.3 mg/dLNormal8.5-10.1The [facility] Comment on above:Performed By: #### INFLUAB #### [facility] [address] [place] [address] [address] Ashlie HillsChloride [Moles/Vol]103 mmol/YJgfitg32-980Stz [facility] Comment on above:Performed By: #### INFLUAB #### [facility] [address] [place] [address] [address] Ashlie HillsCO2 [Moles/Vol]31.2 mmol/LNkprir75.0-32.0The [facility] Comment on above:Performed By: #### INFLUAB #### [facility] [address] [place] [address] [address] Ashlie HillsCreatinine [Mass/Vol]0.96 mg/dLNormal0.55-1.02[facility] OhioComment on above:Performed By: #### INFLUAB #### [facility] [address] [place] [address] [address] Ashlie GrahamGFR-AF ZAMBIAN>60Normal>=60The [facility] HospitalComment on above:Performed By: #### INFLUAB #### [facility] [address] [place] [address] [address] Ashlie GrahamGFR-NON AF ZAMBIAN>60Normal>=60The [facility] HospitalComment on above:Performed By: #### INFLUAB #### [facility] [address] [place] [address] [address] Ashlie HillsGlucose [Mass/Vol]288 mg/dLCritically qwxe35-524Pge [facility] HospitalComment on above:Performed By: #### INFLUAB #### [facility] [address] [place] [address] [address] Ashlie HillsPotassium [Moles/Vol]5.1 mmol/LNormal3.5-5.1The [facility] Comment on above:Performed By: #### INFLUAB #### [facility] [address] [place] [address] [address] Ashlie HillsSodium [Moles/Vol]140 mmol/SWsrjxd930-461Xcr [facility] Comment on above:Performed By: #### INFLUAB #### [facility] [address] [place] [address] [address] Ashlie HillsUrea nitrogen [Mass/Vol]30.0 mg/dLCritically high7.0-18.0The [facility] HospitalComment on above:Performed By: #### INFLUAB #### [facility] [address] [place] [address] Dr. Ashlie HillsUrea nitrogen/Creatinine [Mass ratio]31.2 mg/mgNoalThGreene Memorial HospitalComment on above:Performed By: #### INFLUAB #### [facility] [address] [place] [address] Dr. Ashlie VernonC AUTO DIFFon 26-35-6731AXQA #0.0 103/ulNormal0.0-0.1The [facility] – Jacksonment on above:Performed By: #### CBC #### [facility] [address] [place] [address] Dr. Ashlie HillsBasophils/100 WBC (Bld)0.4 %Normal0.2-2.0[facility] on above:Performed By: #### CBC #### [facility] [address] [place] [address] Dr. Ashlie Mcintosh #0.0 103/ulNormal0.0-0.7The [facility] HospitalComment on above: Performed By: #### CBC #### [facility] [address] [place] [address] Dr. Ashlie Grahamosinophils/100 WBC (Bld)0.0 %Critically low0.9-7.0[facility] Hospitalment on above:Performed By: #### CBC #### [facility] [address] [place] [address] Dr. Ashlie Grahamrythrocyte distribution width (RBC) [Ratio]14.8 %Rzipyc74.0-15.0 [facility] Hospitalment on above:Performed By: #### CBC #### [facility] [address] [place] [address] Dr. Ashlie HillsHematocrit (Bld) [Volume fraction]49.9 %Critically high36.0-48.0 [facility] OhioComment on above:Performed By: #### CBC #### [facility] [address] [place] [address] Dr. Ashlie HillsHemoglobin (Bld) [Mass/Vol]15.7 g/qPQpczcg11.0-16.0The [facility] HospitalComment on above:Performed By: #### CBC #### [facility] [address] [place] [address] Dr. Ashlie Hutner #0.04 10e3/ulCritically high0.00-0.03The [facility] Comment on above:Performed By: #### CBC #### [facility] [address] [place] [address] Dr. Ashlie Hunter %0.5 %Normal0.0-0.5The [facility] HospitalComment on above: Performed By: #### CBC #### [facility] [address] [place] [address] Dr. Ashlie Swenson #1.1 103/ulCritically low1.2-3.8The [facility] Comment on above:Performed By: #### CBC #### [facility] [address] [place] [address] Dr. Ashlie Dsouzahocytes/100 WBC (Bld)12.7 %Critically low20.5-60.0The [facility] HospitalComment on above:Performed By: #### CBC #### [facility] [address] [place] [address] Dr. Ashlie GhoshUAL DIFF REQNONormalThe [facility] HospitalComment on above: Performed By: #### CBC #### [facility] [address] [place] [address] Dr. Ashlie Mckeon (RBC) [Entitic mass]28.1 tdZwlial26.7-34.0The [facility] HospitalComment on above:Performed By: #### CBC #### [facility] [address] [place] [address] Dr. Ashlie Mckeon (RBC) [Mass/Vol]31.5 g/vOXvtpna73.9-35.2The [facility] HospitalComment on above:Performed By: #### CBC #### [facility] [address] [place] [address] Dr. Ashlie MckeonV (RBC) [Entitic vol]89.3 wANrlklo70.0-99.0The [facility] HospitalComment on above:Performed By: #### CBC #### [facility] [address] [place] [address] [address] Ashlie Killian #0.1 103/ulCritically low0.3-0.8The [facility] HospitalComment on above:Performed By: #### CBC #### [facility] [address] [place] [address] [address] Ashlie Palominoocytes/100 WBC (Bld)1.3 %Critically low1.7-12.0The [facility] HospitalComment on above:Performed By: #### CBC #### [facility] [address] [place] [address] Dr. Ashlie Olsen #7.2 103/ulCritically high1.4-6.5The [facility] Comment on above:Performed By: #### CBC #### [facility] [address] [place] [address] Dr. Ashlie Quiñonesutrophils/100 WBC (Bld)85.1 %Critically high43.0-75.0The [facility] HospitalComment on above:Performed By: #### CBC #### [facility] [address] [place] [address] Dr. Ashlie Lantigualet mean volume (Bld) [Entitic vol]12.2 fLNormal9.5-13.5The [facility] HospitalComment on above:Performed By: #### CBC #### [facility] [address] [place] [address] Dr. Ashlie HillsPLT116 103/ulCritically zcq596-969Bkn [facility] HospitalComment on above:Performed By: #### CBC #### [facility] [address] [place] [address] Dr. Ashlie HillsRBC5.59 106/ulCritically high4.20-5.40The [facility] Comment on above:Performed By: #### CBC #### [facility] [address] [place] [address] Ashlie HillsWBC8.5 103/ulNormal4.0-11.0The [facility] HospitalComment on above: Performed By: #### CBC #### [facility] [id number] Ashlie Harrison CHEST WO W CONon 36-54-4908EIH CHEST WO W CONEXAMINATION: CTA CHEST WO [...] authenticated by: HATTIE GOFF Date: 2022-12-05 01:52NormalThe [facility] HospitalMAGNESIUMon 43-97-7328Vjevrmlhl [Mass/Vol]2.1 mg/dLNormal 1.8-2.4The [facility] HospitalComment on above:Performed By: #### POCGLUC #### [facility] [address] [address] [address] Ashlie HillsPOINT OF CARE GLUCOSEon 23-57-9280Mwvumio [Mass/Vol]293 mg/dL Critically fonn56-595Suh [facility] HospitalComment on above:Performed By: #### POCGLUC #### [facility] [address] [address] [address] Ashlie HillsGlucose [Mass/Vol]269 mg/dLCritically djlo25-009Zts [facility] HospitalComment on above:Performed By: #### POCGLUC #### [facility] [address] [address] [address] Ashlie HillsGlucose [Mass/Vol]223 mg/dLCritically zcqc81-524Vwg [facility] HospitalComment on above:Performed By: #### CVDAGS #### [facility] [address] [place] [address] Dr. Ashlie HillsPROF CHEM 8 (BAS METB)on 43-43-4522Fzntl gap [Moles/Vol]11.6 mmol/LNormalThe [facility] HospitalComment on above:Performed By: #### POCGLUC #### [facility] [address] [address] [address] Ashlie HillsCalcium [Mass/Vol]9.2 mg/dLNormal8.5-10.1The [facility] Comment on above:Performed By: #### POCGLUC #### [facility] [address] [address] [address] Ashlie HillsChloride [Moles/Vol]102 mmol/WPcymwd57-341Xxv [facility] Comment on above:Performed By: #### POCGLUC #### [facility] [address] [address] [address] Ashlie HillsCO2 [Moles/Vol]28.7 mmol/THxcgwk89.0-32.0[facility] Comment on above:Performed By: #### POCGLUC #### [facility] [address] [place] [address] Dr. Ashlie HillsCreatinine [Mass/Vol]1.04 mg/dLCritically high0.55-1.02The [facility] HospitalComment on above:Performed By: #### POCGLUC #### [facility] [address] [address] [address] Ashlie GrahamGFR-AF ZAMBIAN>60Normal>=60The [facility] HospitalComment on above:Performed By: #### POCGLUC #### [facility] [address] [address] [address] Ashlie GrahamGFR-NON AF UQPSZKUD61 mL/min/1.16v0Grigbyzrew low>=60The [facility] HospitalComment on above:Performed By: #### POCGLUC #### [facility] [address] [address] [address] Ashlie HillsGlucose [Mass/Vol]231 mg/dLCritically otfa70-480Lxc [facility] on above:Performed By: #### POCGLUC #### [facility] [address] [address] [address] Ashlie HillsPotassium [Moles/Vol]4.3 mmol/LNormal3.5-5.1The [facility] Comment on above:Performed By: #### POCGLUC #### [facility] [address] [address] [address] Ashlie HillsSodium [Moles/Vol]138 mmol/DTxvpma123-462Uhp [facility] Comment on above:Performed By: #### POCGLUC #### [facility] [address] [address] [address] Ashlie HillsUrea nitrogen [Mass/Vol]17.0 mg/dLNormal7.0-18.0The [facility] on above:Performed By: #### POCGLUC #### [facility] [address] [address] [address] Ashlie HillsUrea nitrogen/Creatinine [Mass ratio]16.3 mg/mgNormalThe [facility] HospitalComment on above:Performed By: #### POCGLUC #### [facility] [address] [address] [address] Ashlie HillsRESPIRATORY PANEL PLUSon 75-27-0427FgrmenexjjUns detectedNormal NOT DETECTEDThe [facility] HospitalComment on above:Performed By: #### CVDAGS #### [facility] [address] [address] [address] Ashlie Gandhi ParapertusisNot detectedNormalNOT DETECTEDThe [facility] HospitalComment on above:Performed By: #### CVDAGS #### [facility] [address] [address] [address] Ashlie Gandhi PertussisNot detectedNormalNOT DETECTEDThe [facility] Comment on above:Performed By: #### CVDAGS #### [facility] [address] [address] [address] Ashlie HillsChlamydia PneumoniaeNot detectedNormalNOT DETECTEDThe [facility] HospitalComment on above:Performed By: #### CVDAGS #### [facility] [address] [address] [address] Ashlie HillsCoronavirus 229ENot detectedNormalNOT DETECTEDThe [facility] HospitalComment on above:Performed By: #### CVDAGS #### [facility] [address] [address] [address] Ashlie HillsCoronavirus PAO5Mre detectedNormalNOT DETECTEDThe [facility] HospitalComment on above:Performed By: #### CVDAGS #### [facility] [address] [address] [address] Dailey ChangCoronavirus MD03Rxu detectedNormalNOT DETECTEDThe [facility] HospitalComforest [facility] on above:Performed By: #### CVDAGS #### [facility] [address] [address] [address] Ashlie HillsCoronavirus HY14Pik detectedNormalNOT DETECTEDThe [facility] HospitalCom[facility] on above:Performed By: #### CVDAGS #### [facility] [address] [address] [address] Ashlie Lockhart A H1Not detectedNormalNOT DETECTEDThe [facility] Comment on above:Performed By: #### CVDAGS #### [facility] [address] [address] [address] Ashlie Centeno H1 2009Not detectedNormalNOT DETECTEDThe [facility] HospitalComment on above:Performed By: #### CVDAGS #### [facility] [address] [address] [address] Ashlie Centeno H3Not detectedNormalNOT DETECTEDThe [facility] Comment on above:Performed By: #### CVDAGS #### [facility] [address] [address] [address] Ashlie Lockhart BNot detectedNormalNOT DETECTEDThe [facility] Comment on above:Performed By: #### CVDAGS #### [facility] [address] [address] [address] Ashlie ChávezapneumovirusNot detectedNormalNOT DETECTEDThe [facility] HospitalCom[facility] on above:Performed By: #### CVDAGS #### [facility] [address] [address] [address] Ashlie Jimenez. PneumoniaeNot detectedNormalNOT DETECTEDThe [facility] HospitalComment on above:Performed By: #### CVDAGS #### [facility] [address] [address] [address] Ashlie Mendieta 1Not detectedNormalNOT DETECTEDThe [facility] HospitalCom[facility] on above:Performed By: #### CVDAGS #### [facility] [address] [address] [address] Ashlie Mendieta 2Not detectedNormalNOT DETECTEDThe [facility] HospitalComment on above:Performed By: #### CVDAGS #### [facility] [address] [address] [address] Ashlie Mendieta 3DetectedAbnormalNOT DETECTEDThe [facility] Comment on above:Performed By: #### CVDAGS #### [facility] [address] [address] [address] Ashlie Mendieta 4Not detectedNormalNOT DETECTEDThe [facility] HospitalCom[facility] on above:Performed By: #### CVDAGS #### [facility] [address] [place] [address] Dr. Ashlie HillsRhino/EnterovirusNot detectedNormalNOT DETECTEDThe [facility] HospitalComment on above:Performed By: #### CVDAGS #### [facility] [address] [place] [address] Dr. Ashlie Gallagher Header 1RESPIRATORY PANEL: VIRUSESCl[facility] Comment on above:Performed By: #### CVDAGS #### [facility] [address] [address] [address] Ashlie Gallagher Header 2RESPIRATORY PANEL: BACTERIAClinton Memorial HospitalComment on above:Performed By: #### CVDAGS #### [facility] [address] [place] [address] Dr. Ashlie GivensNot detectedNormalNOT DETECTEDThe [facility] HospitalComment on above:Performed By: #### CVDAGS #### [facility] [address] [place] [address] Dr. Ashlie Finney-CoV-2 (COVID-19) RNA MADDY+probe Ql (Unsp spec)Not detected NormalNOT DETECTEDThe [facility] HospitalComment on above:Performed By: #### CVDAGS #### [facility] [address] [place] [address] Dr. Ashlie HillsXR CHEST 1 Von [id number] CHEST 1 VEXAMINATION: XR CHEST 1 V HISTORY: Shortness of breath COMPARISON: Chest x-ray 08/09/2021 TECHNIQUE: Portable chest FINDINGS: The lung parenchyma is free of consolidation or infiltrate. No pneumothorax or pleural effusion. The cardiac, mediastinal and hilar contours are normal. The visualized osseous structures exhibit no gross abnormality. IMPRESSION: No acute cardiopulmonary abnormality. Electronically authenticated by: MARYANNE POWER Date: 2022-12-04 22:23Cl[facility] Memorial HospitalBLOOD GASES BTYon MODEROOPomerene HospitalComment on above:Performed By: #### CBC #### [facility] [address] [place] [address] Dr. Ashlie Duran TESTPositiveMemorial Health System Marietta Memorial Hospitalment on above: Performed By: #### CBC #### [facility] [address] [address] [address] Ashlie Crenshaw excess Calc (Bld) [Moles/Vol]5.4 mmol/LCritically high -2.0-2.0The [facility] on above:Performed By: #### CBC #### [facility] [address] [address] [address] Ashlie SkyP [facility] HospitalCom[facility] on above: Performed By: #### CBC #### [facility] [address] [address] [address] Ashlie HillsCPElyria Memorial Hospital on above:Performed By: #### CBC #### [facility] [address] [address] [address] Ashlie HillsOiwebTPA1UmtdmuGtm68 Martinez StreetComforest health medical center on above:Performed By: #### CBC #### [facility] [address] [address] [address] Ashlie HillsHCO3 (Bld) [Moles/Vol]30.8 mmol/LCritically high22.0-26.0The [facility] on above:Performed By: #### CBC #### [facility] [address] [address] [address] Ashlie HillsLPMNormalThe [facility] HospitalComforest health medical center on above:Performed By: #### CBC #### [facility] [address] [address] [address] Ashlie HackettUTE VOLUMEClinton Memorial HospitalComforest health medical center on above: Performed By: #### CBC #### [facility] [address] [address] [address] Ashlie HillsOxygen (Bld) [Partial pressure]46.3 mm[Hg]Critically low 80.0-100.0[facility] on above:Performed By: #### CBC #### [facility] [address] [place] [address] Dr. Yilan ChangOxygen saturation in Blood83.9 %Critically low95.0-100.0The [facility] HospitalComment on above:Performed By: #### CBC #### [facility] [address] [address] [address] Ashlie HillsPCO254.2 mmHgCritically high35.0-45.0The [facility] on above:Performed By: #### CBC #### [facility] [address] [address] [address] Ashlie HillsSuburban Community Hospital & Brentwood HospitalComforest health medical center on above:Performed By: #### CBC #### [facility] [address] [address] [address] Ashlie Knapp (Bld)7.363 [pH]Normal7.350-7.450The [facility] on above:Performed By: #### CBC #### [facility] [address] [address] [address] Ashlie VerasAdena Regional Medical CenterComforest health medical center on above:Performed By: #### CBC #### [facility] [address] [address] [address] Ashlie HillsVeterans Health Administration on above:Performed By: #### CBC #### [facility] [address] [place] [address] Dr. Ashlie Avendano [facility] HospitalCom[facility] on above: Performed By: #### CBC #### [facility] [address] [place] [address] Dr. Ashlie GoldAdena Regional Medical CenterComforest health medical center on above:Performed By: #### CBC #### [facility] [address] [address] [address] Ashlie HillsUniversity Hospitals Geneva Medical CenterComforest health medical center on above:Performed By: #### CBC #### [facility] [address] [place] [address] Dr. Ashlie HillsSelect Medical Cleveland Clinic Rehabilitation Hospital, Edwin ShawComforest health medical center on above:Performed By: #### CBC #### [facility] [address] [address] [address] Ashlie Perry [id number] peptide B (Bld) [Mass/Vol]76.0 pg/mL Normal<=900.0The [facility] HospitalComment on above:Performed By: #### POCGLUC #### [facility] [address] [address] [address] Ashlie Chinchilla AUTO DIFFon 09-19-4208SGOK #0.1 103/ulNormal0.0-0.1The [facility] HospitalComment on above:Performed By: #### CBC #### [facility] [address] [address] [address] Ashlie HillsBasophils/100 WBC (Bld)0.6 %Normal0.2-2.0[facility] Comment on above:Performed By: #### CBC #### [facility] [address] [address] [address] Ashlie Mcintosh #0.2 103/ulNormal0.0-0.7The [facility] HospitalComment on above: Performed By: #### CBC #### [facility] [address] [address] [address] Ashlie Grahamosinophils/100 WBC (Bld)1.9 %Normal0.9-7.0[facility] Comment on above:Performed By: #### CBC #### [facility] [address] [place] [address] Dr. Ashlie Grahamrythrocyte distribution width (RBC) [Ratio]15.0 %Orwany76.0-15.0 [facility] OhioComment on above:Performed By: #### CBC #### [facility] [address] [address] [address] Ashlie HillsHematocrit (Bld) [Volume fraction]49.1 %Critically high36.0-48.0 [facility] OhioComment on above:Performed By: #### CBC #### [facility] [address] [address] [address] Ashlie HillsHemoglobin (Bld) [Mass/Vol]15.6 g/uBTcnwnb60.0-16.0The [facility] HospitalComment on above:Performed By: #### CBC #### [facility] [address] [place] [address] Dr. Ashlie Hunter #0.02 10e3/ulNormal0.00-0.03The [facility] HospitalComment on above:Performed By: #### CBC #### [facility] [address] [place] [address] Dr. Ashlie Hunter %0.2 %Normal0.0-0.5The [facility] HospitalComment on above: Performed By: #### CBC #### [facility] [address] [place] [address] Dr. Ashlie Swenson #2.8 103/ulNormal1.2-3.8The [facility] HospitalComment on above:Performed By: #### CBC #### [facility] [address] [place] [address] Dr. Ashlie Dsouzahocytes/100 WBC (Bld)29.9 %Syydbk27.5-60.0The [facility] HospitalComment on above:Performed By: #### CBC #### [facility] [address] [place] [address] Dr. Ashlie Marie DIFF REQNONormalThe [facility] HospitalComment on above: Performed By: #### CBC #### [facility] [address] [place] [address] Dr. Ashlie Mckeon (RBC) [Entitic mass]28.5 ywJukkcd92.7-34.0The [facility] HospitalComment on above:Performed By: #### CBC #### [facility] [address] [place] [address] Dr. Ashlie Mckeon (RBC) [Mass/Vol]31.8 g/hSJkdqdd11.9-35.2The [facility] HospitalComment on above:Performed By: #### CBC #### [facility] [address] [place] [address] Dr. Ashlie Mckeon (RBC) [Entitic vol]89.8 zBSzpfss72.0-99.0The [facility] HospitalComment on above:Performed By: #### CBC #### [facility] [address] [place] [address] Dr. Ashlie Killian #1.0 103/ulCritically high0.3-0.8The [facility] Comment on above:Performed By: #### CBC #### [facility] [address] [place] [address] Dr. Ashlie Palominoocytes/100 WBC (Bld)10.6 %Normal1.7-12.0[facility] Comment on above:Performed By: #### CBC #### [facility] [address] [place] [address] Dr. Ashlie Olsen #5.3 103/ulNormal1.4-6.5The [facility] HospitalComment on above:Performed By: #### CBC #### [facility] [address] [place] [address] Dr. Ashlie Quiñonesutrophils/100 WBC (Bld)56.8 %Nkszbr65.0-75.0The [facility] HospitalComment on above:Performed By: #### CBC #### [facility] [address] [place] [address] Dr. Ashlie Crump mean volume (Bld) [Entitic vol]12.5 fLNormal9.5-13.5The [facility] HospitalComment on above:Performed By: #### CBC #### [facility] [address] [place] [address] Dr. Ashlie WhiteT109 103/ulCritically tom768-775Jmb [facility] HospitalComment on above:Performed By: #### CBC #### [facility] [address] [place] [address] Dr. Ashlie PruettC5.47 106/ulCritically high4.20-5.40The [facility] Comment on above:Performed By: #### CBC #### [facility] [address] [place] [address] Dr. Ashlie BhaktaBC9.4 103/ulNormal4.0-11.0The [facility] HospitalComment on above: Performed By: #### CBC #### [facility] [address] [place] [address] Dr. Ashlie Jones 14(COMP METB)on 81-79-8628Uujyado [Mass/Vol]2.9 g/dL Critically low3.4-5.0The [facility] HospitalComment on above:Performed By: #### CBC #### [facility] [address] [place] [address] Dr. Ashlie HillsAlbumin/Globulin [Mass ratio]0.6 {ratio}NormalThe [facility] HospitalComment on above:Performed By: #### CBC #### [facility] [address] [place] [address] Dr. Ashlie Gonzalez [Catalytic activity/Vol]64 U/CHxvfkz78-037Xtb [facility] HospitalComment on above:Performed By: #### CBC #### [facility] [address] [place] [address] Dr. Ashlie Chambers [Catalytic activity/Vol]16 U/MBsbqbv56-69Pxv [facility] HospitalComment on above:Performed By: #### CBC #### [facility] [address] [place] [address] Dr. Ashlie Arce gap [Moles/Vol]9.6 mmol/LNormalThe [facility] HospitalComment on above:Performed By: #### CBC #### [facility] [address] [place] [address] Dr. Ashlie Tiwari [Catalytic activity/Vol]16 U/NZimipi02-72Rsq [facility] HospitalComment on above:Performed By: #### CBC #### [facility] [address] [place] [address] Dr. Ashlie HillsBilirubin [Mass/Vol]0.5 mg/dLNormal0.2-1.0The [facility] Comment on above:Performed By: #### CBC #### [facility] [address] [place] [address] Dr. Aslhie HillsCalcium [Mass/Vol]8.7 mg/dLNormal8.5-10.1The [facility] Comment on above:Performed By: #### CBC #### [facility] [address] [address] [address] Ashlie HillsChloride [Moles/Vol]103 mmol/IFynzjd31-517Keu [facility] Comment on above:Performed By: #### CBC #### [facility] [address] [address] [address] Ashlie HillsCO2 [Moles/Vol]30.7 mmol/JYfxoyg21.0-32.0The [facility] Comment on above:Performed By: #### CBC #### [facility] [address] [address] [address] Ashlie HillsCreatinine [Mass/Vol]0.96 mg/dLNormal0.55-1.02The [facility] HospitalComment on above:Performed By: #### CBC #### [facility] [address] [place] [address] Dr. Ashlie GrahamGFR-AF ZAMBIAN>60Normal>=60The [facility] HospitalComment on above:Performed By: #### CBC #### [facility] [address] [address] [address] Ashlie Delaney-NON AF ZAMBIAN>60Normal>=60The [facility] HospitalComment on above:Performed By: #### CBC #### [facility] [address] [address] [address] Ashlie HillsGlobulin (S) [Mass/Vol]4.7 g/dLNormalThe [facility] HospitalComment on above:Performed By: #### CBC #### [facility] [address] [address] [address] Ashlie HillsGlucose [Mass/Vol]170 mg/dLCritically nyxx11-832Ivv [facility] HospitalComment on above:Performed By: #### CBC #### [facility] [address] [address] [address] Ashlie HillsPotassium [Moles/Vol]4.3 mmol/LNormal3.5-5.1The [facility] Comment on above:Performed By: #### CBC #### [facility] [address] [address] [address] Ashlie HillsProtein [Mass/Vol]7.6 g/dLNormal6.4-8.2The [facility] Comment on above:Performed By: #### CBC #### [facility] [address] [address] [address] Ashlie HillsSodium [Moles/Vol]139 mmol/HTswcvp335-968Muw [facility] Comment on above:Performed By: #### CBC #### [facility] [address] [place] [address] Dr. Ashlie HillsUrea nitrogen [Mass/Vol]16.0 mg/dLNormal7.0-18.0The [facility] HospitalComment on above:Performed By: #### CBC #### [facility] [address] [place] [address] Dr. Ashlie HillsUrea nitrogen/Creatinine [Mass ratio]16.7 mg/mgNormalThe [facility] HospitalComment on above:Performed By: #### CBC #### [facility] [address] [place] [address] Dr. Ashlie HillsSYMPTOMATIC COVID-19 ANTIGENon [id number] StatementSEE BELOW NormalThe [facility] HospitalComment on above:Result Comment: This test has [...] is revoked sooner.Performed By: #### CVDAGS #### [facility] [address] [place] [address] Dr. Ashlie Finney-CoV-2 (COVID-19) RNA MADDY+probe Ql (Unsp spec)NegativeNormal NEGATIVESelect Medical Special[facility] OhioComment on above:Performed By: #### CVDAGS #### [facility] [address] [place] [address] Dr. Ashlie Alvarado, [facility] SENSITIVITYon 60-09-8615RCTAUD4.9 pg/mLNormal 4.0-51.3The [facility] HospitalComment on above:Result Comment: CUT-OFF POINTS HAVE BEEN ESTABLISHED BASED ON THE FOURTH UNIVERSAL DEFINITIONS OF MYOCARDIAL INFARCTION. THE UPPER REFERENCE LIMIT (URL) OF TROPONIN, DEFINED THE 99TH PERCENTILE OF cTnI DISTRIBUTION IN A REFERENCE POPULATION, HAS BEEN CONFIRMED THE DECISION THRESHOLD FOR AK DIAGNOSIS.Performed By: #### POCGLUC #### [facility] [address] [place] [address] Dr. Ashlie MarshallALBUMIN, RAND URon 79-19-2340gOPN77.8 mg/dLCritically high <=30.0The [facility] HospitalComment on above:Performed By: #### CVDAGS #### [facility] [address] [place] [address] Dr. Ashlie Vaughn RANDOM W/MICROSCOPICon 70-29-6918AORPFQTEMIFH SEENNormalNONE SEENSelect Medical Special[facility] Hospital [facility] OhioComment on above:Performed By: #### CVDAGS #### [facility] [address] [place] [address] Dr. Ashlie Galarzairubin Ql (U)NegativeNormalNEGATIVEThe [facility] Comment on above:Performed By: #### CVDAGS #### [facility] [address] [place] [address] Dr. Ashlie HillsCASTSEENAbnormalNONE SEENSelect Medical Specialty Hospital [facility] Southeast OhioComment on above: Performed By: #### CVDAGS #### [facility] [address] [place] [address] Dr. Ashlie HillsClarity (U)CLEARNormalCLEARThe [facility] HospitalComment on above: Performed By: #### CVDAGS #### [facility] [address] [address] [address] Ashlie Prescottlor (U)YELLOWNormalYELLOWSelect Medical Specialty Hospital - Southeast OhioComment on above: Performed By: #### CVDAGS #### [facility] [address] [address] [address] Ashlie HillsCrystals LM Nom (Urine sed)NONE SEENNormalNONE SEENSelect Medical Specialty Hospital [facility] OhioComforest health medical center on above:Performed By: #### CVDAGS #### [facility] [address] [address] [address] Dailey ChangEpithelial cells LM Ql (Urine sed)MODERATEAbnormalNONE SEEN /RARE The [facility] HospitalCom[facility] on above:Performed By: #### CVDAGS #### [facility] [address] [place] [address] Dr. Ashlie HillsGlucose Ql (U)NegativeNormalNEGATIVESelect Medical [facility] OhioComforest health medical center on above:Performed By: #### CVDAGS #### [facility] [address] [address] [address] Ashlie HillsHemoglobin Ql (U)TRACE-INTACTAbnormalNEGATIVESelect Medical [facility] OhioComforest health medical center on above:Performed By: #### CVDAGS #### [facility] [address] [place] [address] Dr. Ashlie HillsKetones Ql (U)NegativeNormalNEGATIVESelect Medical Special[facility] OhioComforest [facility] center on above:Performed By: #### CVDAGS #### [facility] [address] [place] [address] Dr. Ashlie HillsLEUKOCYTESNegativeNormalNEGATIVESelect Medical Specialty Hospital [facility] Southeast OhioComforest health medical center on above:Performed By: #### CVDAGS #### [facility] [address] [address] [address] Ashlie HillsMUCOUSNONE SEENNormalNONE SEENSelect Medical Specialty Hospital - Southeast OhioComforest health medical center on above:Performed By: #### CVDAGS #### [facility] [address] [address] [address] Ashlie HillsNitrite Ql (U)NegativeNormalNEGATIVEThe [facility] HospitalComment on above:Performed By: #### CVDAGS #### [facility] [address] [place] [address] Dr. Ashlie HillspH (U)5.0 [pH]Normal5-9The [facility] HospitalComment on above: Performed By: #### CVDAGS #### [facility] [address] [place] [address] Dr. Ashlie WilderJxtieXKG6-7Hetrlb2-4Dtr [facility] HospitalComment on above:Performed By: #### CVDAGS #### [facility] [address] [place] [address] Dr. Ashlie HillsSPEC GRAVITY1.007Oyepkqpv7.005-<=1.025The [facility] Comment on above:Performed By: #### CVDAGS #### [facility] [address] [place] [address] Dr. Ashlie Vaughn MQFYVSZ029 mg/dlAbnormalNEGATIVE/ TRACEThe [facility] Comment on above:Performed By: #### CVDAGS #### [facility] [address] [place] [address] Dr. Ashlie Metzbilinogen Qn (U)0.2 {Little'U}/dLNormal0.2 - 1.0The [facility] HospitalComment on above:Performed By: #### CVDAGS #### [facility] [address] [place] [address] Dr. Ashlie HillsWBCNONE SEENNormalNONE SEENThe [facility] HospitalComment on above: Performed By: #### CVDAGS #### [facility] [address] [place] [address] Dr. Ashlie Chinchilla AUTO DIFFon [id number] #0.0 103/ulNormal0.0-0.1The [facility] HospitalComment on above:Performed By: #### CBC #### [facility] [address] [place] [address] Dr. Ashlie HillsBasophils/100 WBC (Bld)0.3 %Normal0.2-2.0The [facility] Comment on above:Performed By: #### CBC #### [facility] [address] [place] [address] Dr. Ashlie Mcintosh #0.4 103/ulNormal0.0-0.7The [facility] HospitalComment on above: Performed By: #### CBC #### [facility] [address] [place] [address] Dr. Ashlie Grahamosinophils/100 WBC (Bld)3.0 %Normal0.9-7.0The [facility] Comment on above:Performed By: #### CBC #### [facility] [address] [place] [address] Dr. Ashlie Grahamrythrocyte distribution width (RBC) [Ratio]15.3 %Critically high 11.0-15.0[facility] Southeast OhioComment on above:Performed By: #### CBC #### [facility] [address] [place] [address] Dr. Ashlie HillsHematocrit (Bld) [Volume fraction]52.4 %Critically high36.0-48.0 The [facility] HospitalComment on above:Performed By: #### CBC #### [facility] [address] [place] [address] Dr. Ashlie HillsHemoglobin (Bld) [Mass/Vol]16.8 g/dLCritically high12.0-16.0[facility] Southeast OhioComment on above:Performed By: #### CBC #### [facility] [address] [place] [address] Dr. Ashlie Hunter #0.04 10e3/ulCritically high0.00-0.03The [facility] Comment on above:Performed By: #### CBC #### [facility] [address] [place] [address] Dr. Ashlie Hunter %0.3 %Normal0.0-0.5The [facility] HospitalComment on above: Performed By: #### CBC #### [facility] [address] [place] [address] Dr. Ashlie Swenson #4.5 103/ulCritically high1.2-3.8The [facility] Comment on above:Performed By: #### CBC #### [facility] [address] [place] [address] Dr. Ashlie Dsouzahocytes/100 WBC (Bld)33.2 %Qcensy01.5-60.0The [facility] HospitalComment on above:Performed By: #### CBC #### [facility] [address] [place] [address] Dr. Ashlie Marie DIFF REQNONormalThe [facility] HospitalComment on above: Performed By: #### CBC #### [facility] [address] [place] [address] Dr. Ashlie Granger (RBC) [Entitic mass]28.0 mxNrkins80.7-34.0The [facility] HospitalComment on above:Performed By: #### CBC #### [facility] [address] [place] [address] Dr. Ashlie Mckeon (RBC) [Mass/Vol]32.1 g/mDRvcbcy23.9-35.2The [facility] HospitalComment on above:Performed By: #### CBC #### [facility] [address] [place] [address] Dr. Ashlie Mckeon (RBC) [Entitic vol]87.3 xSJjzuuk55.0-99.0The [facility] HospitalComment on above:Performed By: #### CBC #### [facility] [address] [place] [address] Dr. Ashlie Killian #0.8 103/ulNormal0.3-0.8The [facility] HospitalComment on above:Performed By: #### CBC #### [facility] [address] [place] [address] Dr. Ashlie Palominoocytes/100 WBC (Bld)5.7 %Normal1.7-12.0[facility] Comment on above:Performed By: #### CBC #### [facility] [address] [place] [address] Dr. Ashlie Olsen #7.8 103/ulCritically high1.4-6.5The [facility] Comment on above:Performed By: #### CBC #### [facility] [address] [address] [address] Ashlie Quiñonesutrophils/100 WBC (Bld)57.5 %Psjlsx50.0-75.0[facility] - Southeast OhioComment on above:Performed By: #### CBC #### [facility] [address] [address] [address] Ashlie HillsPlatelet mean volume (Bld) [Entitic vol]12.0 fLNormal9.5-13.5The [facility] HospitalComment on above:Performed By: #### CBC #### [facility] [address] [place] [address] Dr. Ashlie HillsPLT152 103/roQfmlrp672-204RrbSelect Medical Specialty Hospital - Southeast OhioComment on above: Performed By: #### CBC #### [facility] [address] [place] [address] Dr. Ashlie HillsRBC6.00 106/ulCritically high4.20-5.40[facility] Comment on above:Performed By: #### CBC #### [facility] [address] [place] [address] Dr. Ashlie HillsWBC13.6 103/ulCritically high4.0-11.0[facility] Southeast OhioComment on above:Performed By: #### CBC #### [facility] [address] [place] [address] Dr. Ashlie HillsLIPID PROFILEon [id number]-HDL RATIO NORMSEE [facility] HospitalComment on above:Result Comment: 3.3 - 4.4 LOW RISK 4.4 - 7.1 AVERAGE RISK 7.1 - 11.0 MODERATE RISK >11.0 HIGH RISKPerformed By: #### CBC #### [facility] [address] [place] [address] Dr. Ashlie HillsCholesterol [Mass/Vol]139 mg/dLNormal<=200The [facility] Comment on above:Performed By: #### CBC #### [facility] [address] [address] [address] Ashlie HillsCholesterol in HDL [Mass/Vol]35 mg/dLCritically fpw30-81HtcSelect Medical Specialty Hospital - Southeast OhioComment on above:Performed By: #### CBC #### [facility] [address] [address] [address] Ashlie HillsCholesterol in LDL [Mass/Vol]67.4 mg/dLNoCleveland Clinic Akron GeneralComment on above:Performed By: #### CBC #### [facility] [address] [address] [address] Ashlie Lopezesteroralia.total/Cholesterol in HDL [Mass ratio]4.0 {ratio} NormalSelect Medical Specialty Hospital - Southeast OhioComment on above:Performed By: #### CBC #### [facility] [address] [address] [address] Ashlie Potts NORMAL> or = 60 mg/dl - LOW CARDIOVASCULAR RISK <40 mg/dl - HIGH CARDIOVASCULAR RISKNoCleveland Clinic Akron GeneralComment on above:Performed By: #### CBC #### [facility] [address] [address] [address] Ashlie Desai CALC NORMALSEE BELOWClinton Memorial HospitalComment on above:Result Comment: <100 mg/dl OPTIMAL 100 - 129 mg/dl NEAR OR ABOVE OPTIMAL 130 - 159 mg/dl BORDERLINE HIGH 160 - 189 mg/dl HIGH >190 mg/dl VERY HIGH Performed By: #### CBC #### [facility] [address] [address] [address] Ashlie HillsTriglyceride [Mass/Vol]183 mg/dLCritically high<=150[facility] Southeast OhioComment on above:Performed By: #### CBC #### [facility] [address] [address] [address] Ashlie UnderwoodLDL CALC36.6 mg/dLNoCleveland Clinic Akron GeneralComment on above: Performed By: #### CBC #### [facility] [address] [address] [address] Ashlie HillsMG MAMM SCREEN 3D ALEX CADon [id number] MAMM SCREEN 3D ALEX CAD Patient: MITZI MACIAS Exam Date: 11/22/2022 : 1970 Gender:F Ordering : SAYDA MCKAYLA CHETJuanis CRAB BUTCHER Admission #: [id number] Family : Order #: [id number] CLICK HERE TO VIEW EXAM RADIOLOGY REPORT [...] LOCATION: [facility] BREAST COMPOSITION: Almost entirely fatty. FINDINGS: [...] by: Patricia Veloz M.D. on 11/22/2022 at 12:09Cl[facility] HospitalPROF 14(COMP METB)on [id number] [Mass/Vol]3.0 g/dLCritically low 3.4-5.0The [facility] Jacksonment on above:Performed By: #### CBC #### [facility] [address] [address] [address] Ashlie HillsAlbumin/Globulin [Mass ratio]0.6 {ratio}NormalThe [facility] HospitalComment on above:Performed By: #### CBC #### [facility] [address] [address] [address] Ashile Gonzalez [Catalytic activity/Vol]68 U/FEgrpqv52-147Bbv [facility] HospitalComment on above:Performed By: #### CBC #### [facility] [address] [address] [address] Ashlie MoralesT [Catalytic activity/Vol]14 U/BBydjfw19-58Pur [facility] HospitalComment on above:Performed By: #### CBC #### [facility] [address] [address] [address] Ashlie Hassanon gap [Moles/Vol]12.1 mmol/LNormalThe [facility] Comment on above:Performed By: #### CBC #### [facility] [address] [address] [address] Ashlie HillsAST [Catalytic activity/Vol]9 U/LCritically doo50-72Ptz [facility] HospitalComment on above:Performed By: #### CBC #### [facility] [address] [address] [address] Ashlie HillsBilirubin [Mass/Vol]0.4 mg/dLNormal0.2-1.0The [facility] Comment on above:Performed By: #### CBC #### [facility] [address] [address] [address] Ashlie HillsCalcium [Mass/Vol]9.0 mg/dLNormal8.5-10.1[facility] Comment on above:Performed By: #### CBC #### [facility] [address] [place] [address] Dr. Ashlie HillsChloride [Moles/Vol]105 mmol/ABturlf75-422Hrr [facility] Comment on above:Performed By: #### CBC #### [facility] [address] [address] [address] Ashlie HillsCO2 [Moles/Vol]30.7 mmol/UGdpvly87.0-32.0The [facility] Comment on above:Performed By: #### CBC #### [facility] [address] [address] [address] Ashlie Lopezatinine [Mass/Vol]0.77 mg/dLNormal0.55-1.02The [facility] HospitalComment on above:Performed By: #### CBC #### [facility] [address] [place] [address] Dr. Ashlie GrahamGFR-AF ZAMBIAN>60Normal>=60The [facility] HospitalComment on above:Performed By: #### CBC #### [facility] [address] [place] [address] Dr. Ashlie GrahamGFR-NON AF ZAMBIAN>60Normal>=60The [facility] HospitalComment on above:Performed By: #### CBC #### [facility] [address] [place] [address] Dr. Ashlie HillsGlobulin (S) [Mass/Vol]4.8 g/dLNormalThe [facility] HospitalComment on above:Performed By: #### CBC #### [facility] [address] [place] [address] Dr. Ashlie HillsGlucose [Mass/Vol]162 mg/dLCritically pbhh60-839XmtProMedica Toledo Hospitalment on above:Performed By: #### CBC #### [facility] [address] [place] [address] Dr. Ashlie HillsPotassium [Moles/Vol]3.8 mmol/LNormal3.5-5.1[facility] Comment on above:Performed By: #### CBC #### [facility] [address] [place] [address] Dr. Ashlie HillsProtein [Mass/Vol]7.8 g/dLNormal6.4-8.2[facility] Comment on above:Performed By: #### CBC #### [facility] [address] [place] [address] Dr. Ashlie HillsSodium [Moles/Vol]144 mmol/CEtuitz029-512Suy [facility] Comment on above:Performed By: #### CBC #### [facility] [address] [place] [address] Dr. Ashlie HillsUrea nitrogen [Mass/Vol]24.0 mg/dLCritically high7.0-18.0The [facility] HospitalComment on above:Performed By: #### CBC #### [facility] [address] [place] [address] Dr. Ashlie Jones nitrogen/Creatinine [Mass ratio]31.2 mg/mgNormalThe [facility] HospitalComment on above:Performed By: #### CBC #### [facility] [address] [place] [address] Dr. Ashlie Chinchilla AUTO DIFFon [id number] #0.1 103/ulNormal0.0-0.1The [facility] HospitalComment on above:Performed By: #### CBC #### [facility] [address] [place] [address] Dr. Ashlie HillsBasophils/100 WBC (Bld)0.6 %Normal0.2-2.0The [facility] Comment on above:Performed By: #### CBC #### [facility] [address] [place] [address] Dr. Ashlie Mcintosh #0.3 103/ulNormal0.0-0.7The [facility] HospitalComment on above: Performed By: #### CBC #### [facility] [address] [place] [address] Dr. Ashlie Grahamosinophils/100 WBC (Bld)2.1 %Normal0.9-7.0The [facility] Comment on above:Performed By: #### CBC #### [facility] [address] [place] [address] Dr. Ashlie Grahamrythrocyte distribution width (RBC) [Ratio]15.9 %Critically high 11.0-15.0The [facility] HospitalComment on above:Performed By: #### CBC #### [facility] [address] [place] [address] Dr. Ashlie HillsHematocrit (Bld) [Volume fraction]51.8 %Critically high36.0-48.0 The [facility] HospitalComment on above:Performed By: #### CBC #### [facility] [address] [address] [address] Ashlie HillsHemoglobin (Bld) [Mass/Vol]16.6 g/dLCritically high12.0-16.0The [facility] HospitalComment on above:Performed By: #### CBC #### [facility] [address] [place] [address] Dr. Ashlie Hunter #0.03 10e3/ulNormal0.00-0.03The [facility] HospitalComment on above:Performed By: #### CBC #### [facility] [address] [place] [address] Dr. Ashlie Hunter %0.2 %Normal0.0-0.5The [facility] HospitalComment on above: Performed By: #### CBC #### [facility] [address] [place] [address] Dr. Ashlie Swenson #3.9 103/ulCritically high1.2-3.8The [facility] Comment on above:Performed By: #### CBC #### [facility] [address] [place] [address] Dr. Ashlie Dsouzahocytes/100 WBC (Bld)31.7 %Sngbck00.5-60.0The [facility] HospitalComment on above:Performed By: #### CBC #### [facility] [address] [place] [address] Dr. Ashlie GhoshUAL DIFF REQNONormalThe [facility] HospitalComment on above: Performed By: #### CBC #### [facility] [address] [place] [address] Dr. Ashlie Mckeon (RBC) [Entitic mass]27.9 xrWfkbqk69.7-34.0The [facility] HospitalComment on above:Performed By: #### CBC #### [facility] [address] [place] [address] Dr. Ashlie Mckeon (RBC) [Mass/Vol]32.0 g/uSTwpmfu47.9-35.2The [facility] HospitalComment on above:Performed By: #### CBC #### [facility] [address] [address] [address] Ashlie MckeonV (RBC) [Entitic vol]87.1 cMKlgpbd88.0-99.0The [facility] HospitalComment on above:Performed By: #### CBC #### [facility] [address] [place] [address] Dr. Ashlie Killian #0.7 103/ulNormal0.3-0.8The [facility] HospitalComment on above:Performed By: #### CBC #### [facility] [address] [place] [address] Dr. Ashlie Palominoocytes/100 WBC (Bld)5.8 %Normal1.7-12.0[facility] Comment on above:Performed By: #### CBC #### [facility] [address] [place] [address] Dr. Ashlie Olsen #7.3 103/ulCritically high1.4-6.5The [facility] Comment on above:Performed By: #### CBC #### [facility] [address] [place] [address] Dr. Ashlie Quiñonesutrophils/100 WBC (Bld)59.6 %Xfmada42.0-75.0The [facility] HospitalComment on above:Performed By: #### CBC #### [facility] [address] [place] [address] Dr. Ashlie Lantigualet mean volume (Bld) [Entitic vol]11.7 fLNormal9.5-13.5The [facility] HospitalComment on above:Performed By: #### CBC #### [facility] [address] [place] [address] Dr. Ashlie HillsPLT117 103/ulCritically wsb627-506Poa [facility] HospitalComment on above:Performed By: #### CBC #### [facility] [address] [place] [address] Dr. Ashlie HillsRBC5.95 106/ulCritically high4.20-5.40The [facility] Comment on above:Performed By: #### CBC #### [facility] [address] [address] [address] Ashlie HillsWBC12.3 103/ulCritically high4.0-11.0The [facility] Jacksonment on above:Performed By: #### CBC #### [facility] [address] [address] [address] Ashlie HillsCT ABD/PELV W CONon [id number] ABD/PELV W CONEXAM: CT ABD/PELV W CON [...] [facility] URINE PROFILEon 24-59-5133Hquasajvy Ql (U)NegativeNormal NEGATIVEThe [facility] HospitalComment on above:Performed By: #### POCGLUC #### [facility] [address] [place] [address] Dr. Ashlie HillsClarity (U)CLEARNormalCLEARThe [facility] HospitalComment on above: Performed By: #### POCGLUC #### [facility] [address] [address] [address] Ashlie Prescottlor (U)YELLOWNormalYELLOWSelect Medical Specialty Hospital - Southeast OhioComment on above: Performed By: #### POCGLUC #### [facility] [address] [place] [address] Dr. Ashlie Clayton micrscopic examination will be performed if indicated. NormalWestern Reserve Hospital HospitalComment on above:Performed By: #### POCGLUC #### [facility] [address] [address] [address] Ashlie Rutledgeose Ql (U)NegativeNormalNEGATIVESelect Medical Specialty Hospital - Southeast OhioComment on above:Performed By: #### POCGLUC #### [facility] [address] [place] [address] Dr. Ashlie HillsHemoglobin Ql (U)NegativeNormalNEGATIVESelect [facility] [place] Comment on above:Performed By: #### POCGLUC #### [facility] [address] [place] [address] Dr. Ashlie HillsKetones Ql (U)NegativeNormalNEGATIVESelect Medical Special[facility] Hospital - Southeast OhioComment on above:Performed By: #### POCGLUC #### [facility] [address] [place] [address] Dr. Ashlie HillsLEUKOCYTESNegativeNormalNEGATIVESelect Medical [facility] OhioComforest health medical center on above:Performed By: #### POCGLUC #### [facility] [address] [place] [address] Dr. Ashlie HillsNitrite Ql (U)NegativeNormalNEGATIVESelect Medical Specialty Hospital - Southeast OhioComment on above:Performed By: #### POCGLUC #### [facility] [address] [place] [address] Dr. Ashlie HillspH (U)6.0 [pH]Normal5-9[facility] OhioComment on above: Performed By: #### POCGLUC #### [facility] [address] [place] [address] Dr. Ashlie HillsProtein (U) [Mass/Vol]100 mg/dLAbnormalNEGATIVE/ TRACEWestern Reserve Hospital HospitalComment on above:Performed By: #### POCGLUC #### [facility] [address] [address] [address] Ashlie HillsSPEC GRAVITY1.619Lggnex3.005-<=1.025The [facility] HospitalComment on above:Performed By: #### POCGLUC #### [facility] [address] [address] [address] Ashlie Sullivan MICRO INDINDICATEDNormalThe [facility] HospitalComment on above: Performed By: #### POCGLUC #### [facility] [address] [address] [address] Ashlie Metzbilinogen Qn (U)1.0 {Little'U}/dLNormal0.2 - 1.0The [facility] HospitalComment on above:Performed By: #### POCGLUC #### [facility] [address] [place] [address] Dr. Ashlie HillsLIPASEon 92-91-1471Tkclxw [Catalytic activity/Vol]1771.0 U/L Critically high73.0-393.0The [facility] HospitalComment on above:Performed By: #### CBC #### [facility] [address] [place] [address] Dr. Ashlie Sewell HCG QUALon 58-02-0338GELDNTSSP, QUALNegativeNormalNEGATIVE The [facility] HospitalComment on above:Performed By: #### POCGLUC #### [facility] [address] [place] [address] Dr. Ashlie HillsPROF 14(COMP METB)on 82-17-6573Peeljgy [Mass/Vol]3.2 g/dL Critically low3.4-5.0The [facility] HospitalComment on above:Performed By: #### CBC #### [facility] [address] [place] [address] Dr. Ashlie HillsAlbumin/Globulin [Mass ratio]0.7 {ratio}NormalThe [facility] on above:Performed By: #### CBC #### [facility] [address] [place] [address] Dr. Ashlie MoralesP [Catalytic activity/Vol]70 U/LLpwemr40-714Fzk [facility] HospitalComment on above:Performed By: #### CBC #### [facility] [address] [address] [address] Ashlie MoralesT [Catalytic activity/Vol]11 U/LCritically kgo84-87Lbj [facility] HospitalComment on above:Performed By: #### CBC #### [facility] [address] [address] [address] Ashlie Hassanon gap [Moles/Vol]10.3 mmol/LNormalThe [facility] Comment on above:Performed By: #### CBC #### [facility] [address] [address] [address] Ashlie HillsAST [Catalytic activity/Vol]11 U/LCritically ljz33-39Xkv [facility] HospitalComment on above:Performed By: #### CBC #### [facility] [address] [address] [address] Ashlie HillsBilirubin [Mass/Vol]0.9 mg/dLNormal0.2-1.0[facility] Comment on above:Performed By: #### CBC #### [facility] [address] [address] [address] Ashlie HillsCalcium [Mass/Vol]9.3 mg/dLNormal8.5-10.1[facility] Comment on above:Performed By: #### CBC #### [facility] [address] [address] [address] Ashlie HillsChloride [Moles/Vol]105 mmol/BUraiav58-898Lfg [facility] Comment on above:Performed By: #### CBC #### [facility] [address] [address] [address] Ashlie HillsCO2 [Moles/Vol]30.6 mmol/IJhgsqi71.0-32.0The [facility] Comment on above:Performed By: #### CBC #### [facility] [address] [address] [address] Ashlie HillsCreatinine [Mass/Vol]0.62 mg/dLNormal0.55-1.02The [facility] on above:Performed By: #### CBC #### [facility] [address] [address] [address] Ashlie GrahamGFR-AF ZAMBIAN>60Normal>=60The [facility] HospitalComment on above:Performed By: #### CBC #### [facility] [address] [address] [address] Ashlie GrahamGFR-NON AF ZAMBIAN>60Normal>=60The [facility] HospitalComment on above:Performed By: #### CBC #### [facility] [address] [address] [address] Ashlie HillsGlobulin (S) [Mass/Vol]4.6 g/dLNormalThe [facility] HospitalComforest [facility] center on above:Performed By: #### CBC #### [facility] [address] [address] [address] Ashlie HillsGlucose [Mass/Vol]85 mg/eLJxmefd75-876ZmhSelect Medical [facility] [place] Comment on above:Performed By: #### CBC #### [facility] [address] [address] [address] Ashlie HillsPotassium [Moles/Vol]3.9 mmol/LNormal3.5-5.1The [facility] Comment on above:Performed By: #### CBC #### [facility] [address] [address] [address] Ashlie HillsProtein [Mass/Vol]7.8 g/dLNormal6.4-8.2[facility] [place] Comment on above:Performed By: #### CBC #### [facility] [address] [address] [address] Ashlie HillsSodium [Moles/Vol]142 mmol/MCnpyjw209-831Qsv [facility] Comment on above:Performed By: #### CBC #### [facility] [address] [address] [address] Ashlie HillsUrea nitrogen [Mass/Vol]12.0 mg/dLNormal7.0-18.0[facility] on above:Performed By: #### CBC #### [facility] [address] [address] [address] Ashlie HillsUrea nitrogen/Creatinine [Mass ratio]19.4 mg/mgNoCleveland Clinic Akron GeneralComforest health medical center on above:Performed By: #### CBC #### [facility] [address] [address] [address] Ashlie Recinos MICROSCOPIC ONLYon 79-12-3808SMNNMSUWDKVLQCmakfanaDUPD SEEN [facility]Com[facility] on above:Performed By: #### POCGLUC #### [facility] [address] [address] [address] Ashlie Cortez identified Cx Nom (U)NOT INDICATEDClinton Memorial HospitalComforest health medical center on above:Performed By: #### POCGLUC #### [facility] [address] [place] [address] Dr. Ashlie Thibodeaux SEENNormalNONE SEENParkview Health [facility] on above:Performed By: #### POCGLUC #### [facility] [address] [place] [address] Dr. Ashlie Boyerystals LM Nom (Urine sed)NONE SEENNormalNONE SEENParkview Health Montpelier Hospital on above:Performed By: #### POCGLUC #### [facility] [address] [place] [address] Dr. Dailey ChangEpithelial cells LM Ql (Urine sed)MODERATEAbnormalNONE SEEN /RARE [facility] HospitalCom[facility] on above:Performed By: #### POCGLUC #### [facility] [address] [place] [address] Dr. Ashlie SuarezCOUSNONE SEENNormalNONE SEENParkview Health Montpelier Hospital on above:Performed By: #### POCGLUC #### [facility] [address] [place] [address] Dr. Ashlie PruettLmnvqSSE9-3Irnrhb7-0Mpz [facility] on above:Performed By: #### POCGLUC #### [facility] [address] [place] [address] Dr. Ashlie BhaktaBC0-2AbnormalNONE SEENKettering Health [facility] on above: Performed By: #### POCGLUC #### [facility] [address] [address] [address] Ashlie Tapia-19 PCR ([facility])on 77-73-5455ZRVI-CoV-2 (COVID-19) RNA MADDY+probe Ql (Unsp spec)DetectedAbnormalNOT DETECTEDThe [facility] on above:Result Comment: This test is not yet approved or cleared by the [place] FDA. When there are no FDA-approved or cleared tests available, and other criteria are met, FDA can make tests available under an emergency access mechanism called an Emergency Use Authorization (EUA). The EUA for this test is supported by the Education [employer] Processor of Health and Human Service's declaration that [...] longer be used).Performed By: #### CVDAGS #### [facility] [address] [place] [address] Dr. Ashlie Centeno AND B AGon 87-62-0592VMBKFARFLJVKLSamaritan North Health Center on above:Result Comment: Negative for Flu A protein angiten. Infection due to Flu A cannot be ruled out. FluA angiten in the sample may be below the detection limit of the test.Performed By: #### INFLUAB #### [facility] [address] [address] [address] Ashlie HillsINFLUBNEGHSEE [facility] on above: Result Comment: Negative for Flu B protein antigen. Infection due to Flu B cannot be ruled out. FluB antigen in the sample may be below the detection limit of the test.Performed By: #### INFLUAB #### [facility] [address] [place] [address] Dr. Ashlie Centeno AGNegativeNormalNEGATIVE SEE COMMENTThe [facility] HospitalComment on above:Performed By: #### INFLUAB #### [facility] [address], [place] [address] Dr. Ashlie Shaffer AGNegativeNormalNEGATIVE SEE COMMENTThe [facility] HospitalComment on above:Performed By: #### INFLUAB #### [facility] [address], [place] [address] Dr. Ashlie HillsCT ABD/PELV W CONon [id number] ABD/PELV W CONINDICATION: Disorder of adrenal gland [...] dating back to at least 10/21/2018, unchanged. https://www.ncbi.nlm.nih.gov/pmc/articles/RTM8266417/ Electronically authenticated by: COLLIN HUERTAS Date: 2022-07-27 14:56Cl[facility] Memorial HospitalCREATININEon 08-08-2070Mygbapgkbo [Mass/Vol]0.81 mg/dLNormal 0.55-1.02[facility] [place]Comment on above:Performed By: #### CBC #### [facility] [address] [address] [address] Ashlie GrahamGFR-AF ZAMBIAN>60Normal>=60The [facility] on above:Performed By: #### CBC #### [facility] [address] [address] [address] Ashlie GrahamGFR-NON AF ZAMBIAN>60Normal>=60The [facility] HospitalComment on above:Performed By: #### CBC #### [facility] [id number] Ashlie Radford LOW EXT W CONT LTon [id number] LOW EXT W CONT LTEXAMINATION: CT LOW [...] Electronically authenticated by: PATRICIA VELOZ Date: 2022-07-18 14:58NoCleveland Clinic Akron GeneralXR KNEE LT 1_2 Von [id number] KNEE LT 1_2 VEXAM: XR KNEE LT [...] Electronically authenticated by: HATTIE BAUTISTA Date: 2022-07-18 12:00[facility] HospitalCovid-19 PCR (CVDTBH)on [id number]-CoV-2 (COVID-19) RNA MADDY+probe Ql (Unsp spec)Not detectedNormalNOT [...] this test is supported by the Education [employer] Processor of Health and Human Service's (HHS's) declaration [...] consistent with SARS-CoV-2.Performed By: #### CBC #### [facility] [address] [place] [address] Dr. Ashlie Centeno AND [facility] [id number] Health St. Anne HospitalComment on above:Result Comment: Negative for Flu A protein angiten. Infection due to Flu A cannot be ruled out. FluA angiten in the sample may be below the detection limit of the test.Performed By: #### CBC #### [facility] [address] [place] [address] Dr. Ashlie VelasquezUBNEGDEDRICK [facility] on above: Result Comment: Negative for Flu B protein antigen. Infection due to Flu B cannot be ruled out. FluB antigen in the sample may be below the detection limit of the test.Performed By: #### CBC #### [facility] [address] [place] [address] Dr. Ashlie Cetneno AGNegativeNormalNEGATIVE SEE COMMENTThe [facility] on above:Performed By: #### CBC #### [facility] [address] [place] [address] Dr. Ashlie Lockhart B AGNegativeNormalNEGATIVE SEE COMMENTThe [facility] on above:Performed By: #### CBC #### [facility] [address] [place] [address] Dr. Ashlie HillsPOINT OF CARE GLUCOSEon 81-92-3573Oaxqpno [Mass/Vol]108 mg/dL Critically rwxa23-382Eem [facility] HospitalComforest [facility] medical center on above:Performed By: #### CBC #### [facility] [address] [place] [address] Dr. Ashlie HillsANA by IFAon 47-85-0581Zsnafhqgtkg Antibodies, IFANegativeNormal [facility] on above:Result Comment: Negative <1:80 Borderline 1:80 Positive >1:80 ICAP nomenclature: AC-0 For more information about Hep-2 cell patterns use ANApatterns.org, the official website for the International Consensus on Antinuclear Antibody (RAGHU) Patterns (ICAP).Performed By: #### ANAIFA #### [facility] [address] [place] [address] Dr. Ashlie HillsIMMUNOFIXATION (TREVON), URINEon [id number] Interpretation:U CommentNormalThe [facility] on above:Result Comment: No monoclonality detected.Performed By: #### CBC #### [facility] [address] [place] [address] Dr. Ashlie HillsIMMUNOFIXATION(TREVON),PROTEIN ELEC(PE),FREon 29-41-6808Ghmyqdj [Mass/Vol]3.0 g/dLNormal2.9-4.4[facility] on above:Performed By: #### INFLUAB #### [facility] [address] [place] [address] Dr. Ashlie HillsAlbumin/Globulin [Mass ratio]0.8 {ratio}Normal0.7-1.7The [facility] on above:Performed By: #### INFLUAB #### [facility] [address] [place] [address] Dr. Ashlie HillsFljawWgcrs-6-Tygqosct8.3 g/dLNormal0.0-0.4ThGreene Memorial HospitalComment on above:Performed By: #### INFLUAB #### [facility] [address] [place] [address] Dr. Ashlie HillsYwbqePnqpv-0-Pmsdphvk7.0 g/dLNormal0.4-1.0[facility] [place]Comment on above:Performed By: #### INFLUAB #### [facility] [address] [place] [address] Dr. Ashlie HillsBeta Globulin1.8 g/dLCritically high0.7-1.3TMcCullough-[facility] Comment on above:Performed By: #### INFLUAB #### [facility] [address] [place] [address] Dr. Ashlie Skelton Grayling Lt Chains,S45.2 mg/LCritically high3.3-19.4ThGreene Memorial HospitalComment on above:Performed By: #### INFLUAB #### [facility] [address] [place] [address] Dr. Ashlie Skelton Lambda Lt Chains,S40.3 mg/LCritically high5.7-26.3TMcCullough-Hyde Memorial HospitalComment on above:Performed By: #### INFLUAB #### [facility] [address] [place] [address] Dr. Ashlie HillsGamma Globulin0.8 g/dLNormal0.4-1.8The [facility] HospitalComment on above:Performed By: #### INFLUAB #### [facility] [address] [place] [address] Dr. Ashlie HillsGlobulin (S) [Mass/Vol]3.9 g/dLNormal2.2-3.9[facility] [place] Comment on above:Performed By: #### INFLUAB #### [facility] [address] [place] [address] Dr. Ashlie HillsImmunofixation Result, SerumCommentNoCleveland Clinic [facility]ron General Comment on above:Result Comment: No monoclonality detected.Performed By: #### INFLUAB #### [facility] [address] [address] [address] Ashlie HillsImmunoglobulin A, Qn, Hulpp301 mg/dLCritically icaq06-181Cgv [facility] on above:Performed By: #### INFLUAB #### [facility] [address] [place] [address] Dr. Ashlie HillsImmunoglobulin G, Qn, Jygrp934 mg/hKRxynjq549-4856Chg [facility] HospitalComforest health medical center on above:Performed By: #### INFLUAB #### [facility] [address] [place] [address] Dr. Ashlie HillsImmunoglobulin M, Qn, Serum39 mg/nSInunpp85-394Uuw [facility] HospitalComforest [facility] center on above:Performed By: #### INFLUAB #### [facility] [address] [place] [address] Dr. Ashlie HillsKappa/Lambda Ratio, S1.15Egmxcy9.26-1.65[facility] [place] Comment on above:Performed By: #### INFLUAB #### [facility] [address] [place] [address] Dr. Ashlie HillsM-SpikeNot ObservedNormalNot ObservedThe [facility] HospitalComforest health medical center on above:Performed By: #### INFLUAB #### [facility] [address] [place] [address] Dr. Ashlie Bradford.NormalThe [facility] on above:Performed By: #### INFLUAB #### [facility] [address] [place] [address] Dr. Ashlie Fletcher note:CommentNormalThe [facility] on above: Result Comment: Protein electrophoresis scan will follow via computer, mail, or meat processor delivery.Performed By: #### INFLUAB #### [facility] [address] [place] [address] Dr. Ashlie HillsProtein [Mass/Vol]6.9 g/dLNormal6.0-8.5ThGreene [facility] Hospital Comment on above:Performed By: #### INFLUAB #### [facility] [address] [place] [address] Dr. Ashlie HillsC-PEPTIDE, SERUMon 18-59-4985H-Peptide, Serum3.1 ng/mLNormal 1.1-4.4The [facility] HospitalComment on above:Result Comment: C-Peptide reference interval is for fasting patients.Performed By: #### CPEPT #### [facility] [address] [place] [address] Dr. Ashlie Sandoval B SURFACE ANTIGEN SCREENon 55-66-7377GGaIb ScreenNegative NormalNegativeThe [facility] HospitalComment on above:Performed By: #### CBC #### [facility] [address] [place] [address] Dr. Ashlie ChuaTIS C VIRUS AB W/ REFLEX QUANTon [id number] AB<0.1Normal 0.0-0.9[facility] on above:Performed By: #### INFLUAB #### [facility] [address] [place] [address] Dr. Ashlie HillsInterpretation:CommentNormalThe [facility] HospitalComment on above:Result Comment: Negative Not infected with HCV, unless recent infection is suspected or other evidence exists to indicate HCV infection.Performed By: #### INFLUAB #### [facility] [address] [place] [address] Dr. Ashlie HillsMICROALBUMIN/ CREATININE RATIOon 20-36-5545Bokyvck, Cdspm692.4 ug/mLNormalNot Estab.The [facility] HospitalComforest [facility] center on above:Performed By: #### CBC #### [facility] [address] [place] [address] Dr. Ashlie HillsAlbumin/ Creatinine Fquuh339 mg/g creatCritically high0-29The [facility] HospitalComment on above:Result Comment: Normal: 0 - 29 Moderately increased: 30 - 300 Severely increased: >300Performed By: #### CBC #### [facility] [address] [place] [address] Dr. Ashlie HillsCreatinine, Aobal923.9 mg/dLNormalNot Estab.The [facility] Comment on above:Performed By: #### CBC #### [facility] [address] [address] [address] Ashlie Ramsey 25-[place] LABCORPon 10-75-6660Jrvfrlr D, 25-Hydroxy<4.0 Critically low30.0-100.0The [facility] on above:Result Comment: Vitamin D deficiency has been defined by the [place] of Medicine and an Endocrine Society practice guideline as a level of serum 25-OH vitamin D less than 20 ng/mL (1,2). The Endocrine Society went on to further define vitamin D insufficiency as a level between 21 and 29 ng/mL (2). 1. IOM ([place] of Medicine). 2010. Dietary reference intakes for calcium and D. [place]: The National Academies Press. 2. Lynda MF, Keely OLIVEROS, Leandra LOPEZ, et al. Evaluation, treatment, and prevention of vitamin D deficiency: an Endocrine Society clinical practice guideline. JCEM. 2010; 96(7):1911-30.Performed By: #### CBC #### [facility] [address] [place] [address] Dr. Ashlie HillsGLYCOHEMOGLOBIN A1Con 17-04-6944HEQ RECOMMENDATIONSEE BELOWNormal The [facility] HospitalComment on above:Result Comment: ADA RECOMMENDED LIMIT 4.0 - 6.0 ADA THERAPEUTIC TARGET < 7.0 ACTION SUGGESTED > 7.0Performed By: #### CVDAGS #### [facility] [address] [address] [address] Ashlie HillsGlucose [Mass/Vol]295 mg/dLNormalThe [facility] HospitalComment on above:Performed By: #### CVDAGS #### [facility] [address] [address] [address] Ashlie HillsHbA1c (Bld) [Mass fraction]11.9 %Critically high4.5-6.2The [facility] HospitalComment on above:Performed By: #### CVDAGS #### [facility] [address] [place] [address] Dr. Ashlie HillsHEMOGRAM AND PLATELon 02-53-2568Kxevlcuqaf (Bld) [Volume fraction]56.3 %Critically high36.0-48.0The [facility] HospitalComment on above: Performed By: #### CVDAGS #### [facility] [address] [place] [address] Dr. Ashlie HillsHemoglobin (Bld) [Mass/Vol]18.0 g/dLCritically high12.0-16.0The [facility] HospitalComment on above:Performed By: #### CVDAGS #### [facility] [address] [place] [address] Dr. Ashlie MckeonH (RBC) [Entitic mass]29.5 xqHwyjgw04.7-34.0The [facility] HospitalComment on above:Performed By: #### CVDAGS #### [facility] [address] [place] [address] Dr. Ashlie Mckeon (RBC) [Mass/Vol]32.0 g/bORlppbo01.9-35.2The [facility] HospitalComment on above:Performed By: #### CVDAGS #### [facility] [address] [place] [address] Dr. Ashlie MckeonV (RBC) [Entitic vol]92.1 xLKkbjhh05.0-99.0The [facility] HospitalComment on above:Performed By: #### CVDAGS #### [facility] [address] [place] [address] Dr. Ashlie HillsPLT123 103/ulCritically fqp609-683Tan [facility] HospitalComment on above:Performed By: #### CVDAGS #### [facility] [address] [place] [address] Dr. Ashlie HillsRBC6.11 106/ulCritically high4.20-5.40The [facility] Comment on above:Performed By: #### CVDAGS #### [facility] [address] [place] [address] Dr. Ashlie HillsWBC16.4 103/ulCritically high4.0-11.0The [facility] HospitalComment on above:Performed By: #### CVDAGS #### [facility] [address] [place], [place] [id number] Dr. Ashlie OmerID PROFILEon 38-23-8198LDGU-HDL RATIO NORMSMetroHealth Cleveland Heights Medical CenterComment on above:Result Comment: 3.3 - 4.4 LOW RISK 4.4 - 7.1 AVERAGE RISK 7.1 - 11.0 MODERATE RISK >11.0 HIGH RISKPerformed By: #### CVDAGS #### [facility] [address] [place] [address] Dr. Ashlie HillsCholesterol [Mass/Vol]159 mg/dLNormal<=200[facility] [place] Comment on above:Performed By: #### CVDAGS #### [facility] [address] [place] [address] Dr. Ashlie HillsCholesterol in HDL [Mass/Vol]40 mg/mHEdgmfs80-19KdxSelect Medical Specialty Hospital - Southeast OhioComment on above:Performed By: #### CVDAGS #### [facility] [address] [place] [address] Dr. Ashlie HillsCholesterol in LDL [Mass/Vol]81.8 mg/dLClinton Memorial HospitalComment on above:Performed By: #### CVDAGS #### [facility] [address] [place] [address] Dr. Ashlie Lopezesteroralia.total/Cholesterol in HDL [Mass ratio]4.0 {ratio} NormalSelect Medical Specialty Hospital - Southeast OhioComment on above:Performed By: #### CVDAGS #### [facility] [address] [place] [address] Dr. Ashlie Potts NORMAL> or = 60 mg/dl - LOW CARDIOVASCULAR RISK <40 mg/dl - HIGH CARDIOVASCULAR RISKClinton Memorial HospitalComment on above:Performed By: #### CVDAGS #### [facility] [address] [place] [address] Dr. Ashlie HillsLDL CALC NORMALSEE [facility] HospitalComment on above:Result Comment: <100 mg/dl OPTIMAL 100 - 129 mg/dl NEAR OR ABOVE OPTIMAL 130 - 159 mg/dl BORDERLINE HIGH 160 - 189 mg/dl HIGH >190 mg/dl VERY HIGH Performed By: #### CVDAGS #### [facility] [address] [address] [address] Ashlie HillsTriglyceride [Mass/Vol]186 mg/dLCritically high<=150The [facility] HospitalComment on above:Performed By: #### CVDAGS #### [facility] [address] [address] [address] Ashlie HillsVLDL CALC37.2 mg/dLNormalThe [facility] HospitalComment on above: Performed By: #### CVDAGS #### [facility] [address] [address] [address] Ashlie Rhodes FUNCTION PANELon 10-88-5493Kioyiyx [Mass/Vol]3.1 g/dL Critically low3.4-5.0The [facility] HospitalComment on above:Performed By: #### CBC #### [facility] [address] [address] [address] Ashlie HillsCalcium [Mass/Vol]9.2 mg/dLNormal8.5-10.1The [facility] Comment on above:Performed By: #### CBC #### [facility] [address] [address] [address] Ashlie HillsChloride [Moles/Vol]102 mmol/SOlwgeo34-960Rrg [facility] Comment on above:Performed By: #### CBC #### [facility] [address] [address] [address] Ashlie HillsCO2 [Moles/Vol]31.9 mmol/SZzcumx81.0-32.0The [facility] Comment on above:Performed By: #### CBC #### [facility] [address] [address] [address] Ashlie HillsCreatinine [Mass/Vol]0.68 mg/dLNormal0.55-1.02The [facility] HospitalComment on above:Performed By: #### CBC #### [facility] [address] [address] [address] Dailey ChangEGFR-AF ZAMBIAN>60Normal>=60The [facility] HospitalComment on above:Performed By: #### CBC #### [facility] [address] [address] [address] Ashlie GrahamGFR-NON AF ZAMBIAN>60Normal>=60The [facility] HospitalComment on above:Performed By: #### CBC #### [facility] [address] [address] [address] Ashlie HillsGlucose [Mass/Vol]131 mg/dLCritically ipvo67-827Vmy [facility] HospitalComment on above:Performed By: #### CBC #### [facility] [address] [address] [address] Ashlie HillsPhosphate [Mass/Vol]4.0 mg/dLNormal2.6-4.7The [facility] Comment on above:Performed By: #### CBC #### [facility] [address] [address] [address] Ashlie HillsPotassium [Moles/Vol]4.0 mmol/LNormal3.5-5.1[facility] [place] Comment on above:Performed By: #### CBC #### [facility] [address] [address] [address] Ashlie HillsSodium [Moles/Vol]141 mmol/ROmlmrd194-287XmcSelect Medical Specialty Hospital [facility] [place] Comment on above:Performed By: #### CBC #### [facility] [address] [address] [address] Ashlie HillsUrea nitrogen [Mass/Vol]17.0 mg/dLNormal7.0-18.0The [facility] HospitalComment on above:Performed By: #### CBC #### [facility] [address] [address] [address] Ashlie HillsUA RANDOM W/MICROSCOPICon 74-30-3618ESSBOOKPUYEL SEENNormalNONE SEENThe [facility] HospitalComment on above:Performed By: #### INFLUAB #### [facility] [address] [address] [address] Ashlie HillsBilirubin Ql (U)NegativeNormalNEGATIVEThe [facility] Comment on above:Performed By: #### INFLUAB #### [facility] [address] [address] [address] Ashlie HillsCASTNONE SEENNormalNONE SEENSelect Medical Specialty Hospital - Southeast [place]Comment on above:Performed By: #### INFLUAB #### [facility] [address] [address] [address] Ashlie Chilel (U)CLEARNormalCLEARSelect Medical Specialty Hospital - Southeast OhioComment on above: Performed By: #### INFLUAB #### [facility] [address] [place] [address] Dr. Ashlie Prescottlor (U)YELLOWNormalYELLOWSelect Medical Specialty Hospital - Southeast OhioComment on above: Performed By: #### INFLUAB #### [facility] [address] [place] [address] Dr. Ashlie HillsCrystals LM Nom (Urine sed)NONE SEENNormalNONE SEENSelect Medical Specialty Hospital - Southeast OhioComment on above:Performed By: #### INFLUAB #### [facility] [address] [place] [address] Dr. Dailey ChangEpithelial cells LM Ql (Urine sed)FEWAbnormalNONE SEEN /RARESelect Medical Specialty Hospital - Southeast OhioComment on above:Performed By: #### INFLUAB #### [facility] [address] [place] [address] Dr. Ashlie HillsGlucose Ql (U)NegativeNormalNEGATIVESelect Medical Specialty Hospital - Southeast OhioComment on above:Performed By: #### INFLUAB #### [facility] [address] [place] [address] Dr. Ashlie HillsHemoglobin Ql (U)NegativeNormalNEGATIVENorwalk Memorial Hospital on above:Performed By: #### INFLUAB #### [facility] [address] [place] [address] Dr. Ashlie HillsKetones Ql (U)NegativeNormalNEGATIVESelect Medical Specialty Hospital - Southeast OhioComment on above:Performed By: #### INFLUAB #### [facility] [address] [place] [address] Dr. Ashlie HillsLEUKOCYTESNegativeNormalNEGATIVESelect Medical Specialty Hospital - Southeast OhioComment on above:Performed By: #### INFLUAB #### [facility] [address] [place] [address] Dr. Ashlie SuarezCOUSCHAD SEENNormalNONE SEENThe [facility] HospitalComment on above:Performed By: #### INFLUAB #### [facility] [address] [place] [address] Dr. Ashlie Santostrite Ql (U)NegativeNormalNEGATIVEThe [facility] HospitalComment on above:Performed By: #### INFLUAB #### [facility] [address] [place] [address] Dr. Ashlie HillspH (U)5.5 [pH]Normal5-9The [facility] HospitalComment on above: Performed By: #### INFLUAB #### [facility] [address] [place] [address] Dr. Ashlie HillsDsolrIEQ1-7Dffjek7-7Rrj [facility] HospitalComment on above:Performed By: #### INFLUAB #### [facility] [address] [place] [address] Dr. Ashlie HillsSPEC GRAVITY>=1.013Qnunozat7.005-<=1.025The [facility] Comment on above:Performed By: #### INFLUAB #### [facility] [address] [place] [address] Dr. Ashlie Vaughn MJUUMWI218 mg/dlAbnormalNEGATIVE/ TRACEThe [facility] Comment on above:Performed By: #### INFLUAB #### [facility] [address] [place] [address] Dr. Ashlie Metzbilinogen Qn (U)0.2 {Little'U}/dLNormal0.2 - 1.0The [facility] HospitalComment on above:Performed By: #### INFLUAB #### [facility] [address] [place] [address] Dr. Ashlie HillsWBCNONTracey SEENNormalNONE SEENThe [facility] HospitalComment on above: Performed By: #### INFLUAB #### [facility] [address] [place] [address] Dr. Ashlie Christine ACID SERUMon 14-69-5040Ekxsy [Mass/Vol]5.0 mg/dLNormal 2.6-6.0The [facility] HospitalComment on above:Performed By: #### INFLUAB #### [facility] [address] [address] [address] Ashlie Recinos T PROTEIN CREAT RATIOon 10-86-5136Ojjrnsw (U) [Mass/Vol] 77.9 mg/dLCritically high<=12.0The [facility] HospitalComment on above:Performed By: #### CVDAGS #### [facility] [address] [place] [address] Dr. Ashlie Sullivan PROT CREAT RAT0.44NormalThe [facility] HospitalComment on above: Performed By: #### CVDAGS #### [facility] [address] [place] [address] Dr. Ashlie Recinos KAGEP147.15 mg/uFLjbgpj38.00-300.00[facility] Comment on above:Performed By: #### CVDAGS #### [facility] [address] [place] [address] Dr. Ashlie OrdoñezLTREGINO URINEon 64-58-8348TUUZTAJ URINECulture Observations: GREATER THAN TWO ORGANISMS PRESENT, HEAVILY MIXED. PLEASE RESUBMIT CLEAN CATCH MID-STREAM URINE IF CLINICALLY INDICATED.NormalThe [facility] HospitalComment on above:Performed By: #### INFLUAB #### [facility] [address] [place] [address] Dr. Ashlie VernonC AUTO DIFFon 52-93-7835WQXG #0.1 103/ulNormal0.0-0.1The [facility] HospitalComment on above:Performed By: #### CBC #### [facility] [address] [place] [address] Dr. Ashlie HillsBasophils/100 WBC (Bld)0.5 %Normal0.2-2.0[facility] [place] Comment on above:Performed By: #### CBC #### [facility] [address] [place] [address] Dr. Ashlie Mcintosh #0.4 103/ulNormal0.0-0.7The [facility] HospitalComment on above: Performed By: #### CBC #### [facility] [address] [address] [address] Ashile Grahamosinophils/100 WBC (Bld)2.4 %Normal0.9-7.0[facility] Comment on above:Performed By: #### CBC #### [facility] [address] [place] [address] Dr. Ashlie Grahamrythrocyte distribution width (RBC) [Ratio]14.1 %Mscrzy74.0-15.0 [facility] - Southeast OhioComment on above:Performed By: #### CBC #### [facility] [address] [place] [address] Dr. Ashlie HillsHematocrit (Bld) [Volume fraction]55.9 %Critically high36.0-48.0 The [facility] HospitalComment on above:Performed By: #### CBC #### [facility] [address] [place] [address] Dr. Ashlie HillsHemoglobin (Bld) [Mass/Vol]17.9 g/dLCritically high12.0-16.0[facility] Southeast OhioComment on above:Performed By: #### CBC #### [facility] [address] [place] [address] Dr. Ashlie Hunter #0.06 10e3/ulCritically high0.00-0.03The [facility] Comment on above:Performed By: #### CBC #### [facility] [address] [place] [address] Dr. Ashlie Hunter %0.4 %Normal0.0-0.5ThGreene Memorial HospitalComment on above: Performed By: #### CBC #### [facility] [address] [place] [address] Dr. Ashlie Swenson #5.8 103/ulCritically high1.2-3.8The [facility] Comment on above:Performed By: #### CBC #### [facility] [address] [place] [address] Dr. Ashlie Jademphocytes/100 WBC (Bld)35.4 %Dmypek63.5-60.0The [facility] HospitalComment on above:Performed By: #### CBC #### [facility] [address] [place] [address] Dr. Ashlie GhoshUAL DIFF REQNONormalThe [facility] HospitalComment on above: Performed By: #### CBC #### [facility] [address] [place] [address] Dr. Ashlie Mckeon (RBC) [Entitic mass]29.4 enXyjbpw20.7-34.0The [facility] HospitalComment on above:Performed By: #### CBC #### [facility] [address] [place] [address] Dr. Ashlie Mckeon (RBC) [Mass/Vol]32.0 g/mBUhzrku09.9-35.2The [facility] HospitalComment on above:Performed By: #### CBC #### [facility] [address] [place] [address] Dr. Ashlie Mckeon (RBC) [Entitic vol]91.8 xLHvqczn16.0-99.0The [facility] HospitalComment on above:Performed By: #### CBC #### [facility] [address] [place] [address] Dr. Ashlie Killian #0.8 103/ulNormal0.3-0.8The [facility] HospitalComment on above:Performed By: #### CBC #### [facility] [address] [place] [address] Dr. Ashlie Palominoocytes/100 WBC (Bld)4.8 %Normal1.7-12.0[facility] Comment on above:Performed By: #### CBC #### [facility] [address] [place] [address] Dr. Ashlie Olsen #9.3 103/ulCritically high1.4-6.5The [facility] Comment on above:Performed By: #### CBC #### [facility] [address] [address] [address] Ashlie HillsNeutrophils/100 WBC (Bld)56.5 %Acqrkr83.0-75.0The [facility] HospitalComment on above:Performed By: #### CBC #### [facility] [address] [address] [address] Ashlie HillsPlatelet mean volume (Bld) [Entitic vol]12.9 fLNormal9.5-13.5The [facility] HospitalComment on above:Performed By: #### CBC #### [facility] [address] [address] [address] Ashlie HillsPLT127 103/ulCritically uqi637-541Zou [facility] HospitalComment on above:Performed By: #### CBC #### [facility] [address] [address] [address] Ashlie HillsRBC6.09 106/ulCritically high4.20-5.40The [facility] Comment on above:Performed By: #### CBC #### [facility] [address] [address] [address] Ashlie HillsWBC16.4 103/ulCritically high4.0-11.0The [facility] – Jacksonment on above:Performed By: #### CBC #### [facility] [address] [address] [address] Ashlie HillsCT ABD/PELVIS WO CONon [id number] ABD/PELVIS WO CON Begin Addendum #1 Mildly [...] without diverticulitis. Severe right hip degenerative change.NormalThe [facility] URINE PROFILEon 58-84-2028Ccvfpmwrg Ql (U) NegativeNormalNEGATIVEThe [facility] HospitalComment on above:Performed By: #### EVONNE CLAY #### [facility] [address] [place] [address] Dr. Ashlie Chilel (U)CLEARNormalCLEARThe [facility] HospitalComment on above: Performed By: #### KRISTINAR, UMICRO #### [facility] [address] [address] [address] Ashlie Roberts (U) ORANGEAbnormalYELLOWSelect Medical Specialty Hospital - Southeast OhioComment on above:Performed By: #### OBED, UMICRO #### [facility] [address] [address] [address] Ashlie Clayton micrscopic examination will be performed if indicated. NormalSelect Medical Specialty Hospital - Southeast OhioComment on above:Performed By: #### KRISTINAR, UMICRO #### [facility] [address] [address] [address] Ashlie HillsGlucose Ql (U)250 mg/dlAbnoatrium health wake forest baptist high point medical centerNEGMiddletown Hospital Comment on above:Performed By: #### OBED, UMICRO #### [facility] [address] [address] [address] Ashlie HillsHemoglobin Ql (U)NegativermalNEGMiddletown Hospital Comment on above:Performed By: #### OBED, UMICRO #### [facility] [address] [address] [address] Ashlie Connor Ql (U)NegativeNormalNEGATIVESelect Medical Specialty Hospital - Southeast OhioComment on above:Performed By: #### OBED, UMICRO #### [facility] [address] [address] [address] Ashlie HillsLEUKOCYTESNegativeNormalNEGMiddletown HospitalComment on above:Performed By: #### KRISTINAR, UMICRO #### [facility] [address] [address] [address] Ashlie Santostrite Ql (U)NegativeNormalNEGATIVESelect Medical Specialty Hospital - Southeast OhioComment on above:Performed By: #### ERUR, UMICRO #### [facility] [address] [address] [address] Ashlie HillspH (U)5.0 [pH]Normal5-9[facility] OhioComment on above: Performed By: #### ERUR, UMICRO #### [facility] [address] [place] [address] Dr. Ashlie HillsProtein (U) [Mass/Vol]100 mg/dLAbnormalNEGATIVE/ TRACEThe [facility] HospitalComment on above:Performed By: #### MADELINE CLAYRO #### [facility] [address] [place] [address] Dr. Ashlie HillsSPEC GRAVITY>=1.350Haiymxyo2.005-<=1.025The [facility] Comment on above:Performed By: #### MADELINE CLAYRO #### [facility] [address] [place] [address] Dr. Ashlie Sullivan MICRO INDINDICATEDNoCleveland Clinic Akron GeneralComment on above: Performed By: #### EVONNE CLAY #### [facility] [address] [place] [address] Dr. Ashlie Metzbilinogen Qn (U)1.0 {Little'U}/dLNormal0.2 - 1.0The [facility] HospitalComment on above:Performed By: #### EVONNE CLAY #### [facility] [address] [place] [address] Dr. Ashlie Jones CHEM 8 (BAS METB)on 53-01-1920Hlnbu gap [Moles/Vol]12.1 mmol/LNormalThe [facility] HospitalComment on above:Performed By: #### INFLUAB #### [facility] [address] [place] [address] Dr. Ashlie HillsCalcium [Mass/Vol]9.0 mg/dLNormal8.5-10.1[facility] Comment on above:Performed By: #### INFLUAB #### [facility] [address] [place] [address] Dr. Ashlie HillsChloride [Moles/Vol]101 mmol/AAwywvp70-362WgmSelect Medical Specialty Hospital - [facility] [place] Comment on above:Performed By: #### INFLUAB #### [facility] [address] [place] [address] Dr. Ashlie HillsCO2 [Moles/Vol]29.1 mmol/YGphwzi80.0-32.0[facility] Comment on above:Performed By: #### INFLUAB #### [facility] [address] [place] [address] Dr. Ashlie HillsCreatinine [Mass/Vol]0.86 mg/dLNormal0.55-1.02The [facility] HospitalComment on above:Performed By: #### INFLUAB #### [facility] [address] [place] [address] Dr. Dailey ChangEGFR-AF ZAMBIAN>60Normal>=60The [facility] HospitalComment on above:Performed By: #### INFLUAB #### [facility] [address] [place] [address] Dr. Ashlie GrahamGFR-NON AF ZAMBIAN>60Normal>=60The [facility] HospitalComment on above:Performed By: #### INFLUAB #### [facility] [address] [place] [address] Dr. Ashlie HillsGlucose [Mass/Vol]236 mg/dLCritically mupx76-087Nmv [facility] HospitalComment on above:Performed By: #### INFLUAB #### [facility] [address] [place] [address] Dr. Ashlie HillsPotassium [Moles/Vol]4.2 mmol/LNormal3.5-5.1The [facility] Comment on above:Performed By: #### INFLUAB #### [facility] [address] [place] [address] Dr. Ashlie HillsSodium [Moles/Vol]138 mmol/LIhhjto074-691Ftw [facility] Comment on above:Performed By: #### INFLUAB #### [facility] [address] [place] [address] Dr. Ashlie HillsUrea nitrogen [Mass/Vol]11.0 mg/dLNormal7.0-18.0The [facility] HospitalComment on above:Performed By: #### INFLUAB #### [facility] [address] [place] [address] Dr. Yilan ChangUrea nitrogen/Creatinine [Mass ratio]12.8 mg/mgNoCleveland Clinic Akron GeneralComment on above:Performed By: #### INFLUAB #### [facility] [address] [place] [address] Dr. Ashlie Recinos MICROSCOPIC ONLYon 39-61-1422BLCYWWNPUBVKZIbsdxbcrFBEI SEEN [facility] OhioComforest [facility] on above:Performed By: #### OBED UMICRO #### [facility] [address] [address] [address] Ashlie Cortez identified Cx Nom (U)INDICATEDClinton Memorial HospitalComforest health medical center on above:Performed By: #### OBED UMICRO #### [facility] [address] [place] [address] Dr. Ashlie Thibodeaux SEENNormalNONE SEENSelect Medical Specialty Hospital - Southeast OhioComforest health medical center on above:Performed By: #### OBED UMICRO #### [facility] [address] [place] [address] Dr. Ashlie Banegas LM Nom (Urine sed)NONE SEENNormalNONE SEENSelect Medical Specialty Hospital - Southeast OhioComforest health medical center on above:Performed By: #### OBED UMICRO #### [facility] [address] [place] [address] Dr. Dailey ChangEaustinthelial cells LM Ql (Urine sed)MODERATEAbnormalNONE SEEN /RARE The [facility] HospitalComforest health medical center on above:Performed By: #### OBED UMICRO #### [facility] [address] [place] [address] Dr. Ashlie HaroE SEENNormalNONE SEENSelect Medical Specialty Hospital - Southeast OhioComforest health medical center on above:Performed By: #### OBED UMICRO #### [facility] [address] [place] [address] Dr. Ashlie PruettYqndePRC7-0Mzkjri2-2Fwt [facility] HospitalComforest health medical center on above:Performed By: #### OBED UMICRO #### [facility] [address] [place] [address] Dr. Ashlie BhaktaBC0-2AbnormalNONE SEENParkview Health [facility] on above: Performed By: #### ERUR, UMICRO #### [facility] [address] [address] [address] Ashlie VelásquezASTPRESENTAbnormalNONE SEENParkview Health Montpelier Hospital on above:Performed By: #### ERUR, UMICRO #### [facility] [address] [address] [address] Ashlie Hutchinson RIGHT 1 OR 2 VWS WITH PELVISon [id number] RIGHT 1 OR 2 VWS WITH PELVISUnMercy Health West Hospital Department of Radiology [address] [place] [id number] Patient Name: MITZI MACIAS : 1970 Sex: F Age: Race: White Pt. Location: Patient Status: O Ordered Date: 07/20/2020 1:45:00 PM Completed Date: 07/20/2020 01:57 PM Requesting Provider: LIZ EISENBERG Attending Provider: LIZ EISENBERG Report Copy To: MCKAYLA BLAS Signs & Symptoms: M25.551 Pain in right hip I10 History: [place] Comments: evaluate Exam: HIP RIGHT 1 OR [...] MRI. Electronically signed: Pipo Acevedo. Transcribed by: [email or web address], User Resident: Electronically Signed by: PIPO ACEVEDO @ 07/20/2020 03:45 [facility] CampusComment on above:Order Comment: evaluate Vital Signs Date TimeVital SignValuePerforming XoccnphqkIzfkingw98-48-6302 17:58-0400Body adaeil705.1 cmLisa Aichholz [employer] Work Phone: [phone]10-22-2025 17:58-0400 Body mass index (BMI) [Ratio]61 kg/m2Lisa Aichholz [employer] Work Phone: [phone]10-22-2025 17:58-0400 Body ovxkarmubbk34.1 [degF]Mckayla Aichholz [employer] Work Phone: [phone])[address]10-22-2025 17:58-0400 Body .18 kgLisa Aichholz [employer] Work Phone: [phone])[address]10-22-2025 17:58-0400 Diastolic blood rlpiwofq01 mm[Hg]Mckayla Aichholz [employer] Work Phone: [phone]10-22-2025 17:58-0400 Heart rate84 /minLisa Aichholz [employer] Work Phone: [phone])[address]10-22-2025 17:58-0400 Respiratory rate20 /minLisa Aichholz [employer] Work Phone: [phone])[address]10-22-2025 17:58-0400 SaO2% (BldA) [Mass fraction]90 %Mckayla Aichholz [employer] Work Phone: [phone]10-22-2025 17:58-0400 Systolic blood wceqzcqw221 mm[Hg]Mckayla Aichholz [employer] Work Phone: [facility]09-29-2025 15:37-0400 Body nlggdpwuaqz53.1 [degF]Mckayla Harshadholz [employer] Work Phone: [phone]-[facility]09-29-2025 15:37-0400 Diastolic blood jewmtftp26 mm[Hg]Mckaylataryn Patriciaholz [employer] Work Phone: [phone])[address]09-29-2025 15:37-0400 Heart rate81 /minLisa Aichholz [employer] Work Phone: [phone]09-29-2025 15:37-0400 Respiratory rate20 /minLisa Aichholz [employer] Work Phone: [phone]09-29-2025 15:37-0400 SaO2% (BldA) [Mass fraction]92 %Mckayla Harshadholz [employer] Work Phone: [phone] [place], [place] [address]9-29-2025 15:37-0400 Systolic blood szrvghou021 mm[Hg]Mckayla Patriciaholz [employer] Work Phone: [phone]-[facility]07-24-2025 09:48-0400 Body .2 Reji Souza MD Work Phone: [facility] HospitalZsanojbnzg54-74-7909 09:48-0400Body mass index (BMI) [Ratio]56.38 kg/m3UptagRain Souza MD Work Phone: [facility] HospitalKmsljnsxvl25-82-0200 09:48-0400Body .29 kgRain Souza MD Work Phone: [facility] HospitalXygykawzvr04-38-6849 09:48-0400Diastolic blood cqvicbxb55 mm[Hg]Rain Souza MD Work Phone: [facility] HospitalXzhqjopxzq42-86-5046 09:48-0400Heart rate72 /min Rain Souza MD Work Phone: noShriners Hospitals for ChildrenIlnwkztusq82-56-9908 09:48-0400Respiratory rate16 /minRain Souza MD Work Phone: noShriners Hospitals for ChildrenOiphvfavxc77-71-4209 09:48-0940SvO7% (BldA) [Mass fraction]84 %Rain Souza MD Work Phone: [facility] HospitalKlshmvylqa97-67-6692 09:48-0400Systolic blood ovttnvft402 mm[Hg]Rain Souza MD Work Phone: [facility] HospitalKxxwnvrhcm45-92-8912 18:11-0400Body mass index (BMI) [Ratio]58.64 kg/m2Lisa Chetz [employer] Work Phone: [facility] HospitalQhsauklypp11-05-4375 18:11-0400Body temperature 98.49 [degF]Mckayla Wan [employer] Work Phone: [facility] HospitalBirdsdzqdx64-30-1722 18:11-0400Body kekuwy808.83 kgLisa Chetz [employer] Work Phone: [facility] HospitalXltacswvka72-23-9595 18:11-0400Diastolic blood ukuucaon58 mm[Hg]Mckayla Wan [employer] Work Phone: [facility] HospitalNggobgpnqx00-23-2496 18:11-0400Heart rate81 /min Mckayla Wan [employer] Work Phone: [facility] HospitalMswsuiifaa78-31-8139 18:11-0400Respiratory rate20 /minLisa Chetz [employer] Work Phone: [facility] HospitalHumpjbqhxf11-49-3765 18:11-1172XsJ6% (BldA) [Mass fraction]90 %Mckayla Wan [employer] Work Phone: [facility] HospitalMmvmfslxwv53-34-0133 18:11-0400Systolic blood mjuimcjg930 mm[Hg]Mckayla Wan [employer] Work Phone: [facility] HospitalLeiltujadg32-58-0078 10:19-0400Body temperature 98.01 [degF]Mckayla Rosenbergz [employer] Work Phone: [facility] HospitalRoruzcosdf04-16-4548 10:19-0400Diastolic blood hvsjeuqr50 mm[Hg]Mckayla Harshadholz [employer] Work Phone: [facility] HospitalGnytitglsi60-43-7788 10:-0Heart rate71 /min Mckayla Harshadholz [employer] Work Phone: [facility] HospitalKbrgxbcisr10-20-2512 10:-399Respiratory rate20 /minLisa Harshadholz [employer] Work Phone: [facility] HospitalDhwfjdwzcb50-27-5031 10:1556KtO3% (BldA) [Mass fraction]88 %Mckayla Rosenbergz [employer] Work Phone: [facility] HospitalGkrydalybm84-48-0329 10:-399Systolic blood eyevuwbm721 mm[Hg]Mckayla Harshadholz [employer] Work Phone: [facility] HospitalIbzzcsnoev92-03-6958 14:11-0400Body .2 cmLisa Harshadholz [employer] Work Phone: [facility] HospitalDvtjxrmbdw56-51-1829 14:11-0400Body mass index (BMI) [Ratio]56.51 kg/m2Maria De Jesussa Harshadholz [employer] Work Phone: [facility] HospitalXolujbemyl74-80-8364 14:11-0400Body temperature 98.71 [degF]Mckayla Harshadholz [employer] Work Phone: [facility] HospitalPebdqxmmlx33-33-7726 14:11-0400Body wcekte133.66 kgLisa Juanjosehholz [employer] Work Phone: [facility] HospitalHoduwsqvpx95-49-5041 14:11-0400Diastolic blood vztfnyyz97 mm[Hg]Mckayla Harshadholz [employer] Work Phone: [facility] HospitalRmkfbiukyw88-86-8697 14:11-0400Heart rate75 /min Mckayla Harshadholz [employer] Work Phone: [place] [address]Uknobkeiym09-97-0684 14:11-0400Respiratory rate18 /minMaria De Jesus Wan [employer] Work Phone: [facility] HospitalIatrkqtphv94-42-1282 14:11-0564PmK5% (BldA) [Mass fraction]90 %Mckayla Wan [employer] Work Phone: noShriners Hospitals for ChildrenLmwplbntdn25-59-3260 14:11-0400Systolic blood asnwiimj450 mm[Hg]Mckayla Sowdona [employer] Work Phone: [facility] HospitalScrnlmbzxp93-42-4835 11:21-0400Body jroztu393.2 Reji Souza MD Work Phone: [facility] HospitalMfenjhdotv94-26-3017 11:21-0400Body mass index (BMI) [Ratio]55.91 kg/c1XpzjsRain Souza MD Work Phone: [address] [place], [place] [address]Ztprerfxfm75-69-0502 11:21-0400Body mjvjow144.93 kgRain Souza MD Work Phone: [facility] HospitalTquqlhqsbn81-72-7724 11:21-0400Diastolic blood fuktkqcl62 mm[Hg]Rain Souza MD Work Phone: [address] [place], [place] [address]Ulvhdcyzxa92-26-2640 11:21-0400Heart rate70 /min Rain Souza MD Work Phone: [facility] HospitalRqhnprimxh65-32-2123 11:21-0400Respiratory rate16 /minRain Souza MD Work Phone: [address] [place], [place] [address]Sxbsyyjaux08-92-2089 11:21-5720RfV1% (BldA) [Mass fraction]91 %Rain Souza MD Work Phone: [address] [place], [place] [address]Izvfbkomww97-64-9868 11:21-0400Systolic blood fvbkajyq910 mm[Hg]Rain Souza MD Work Phone: [address] [place], [place] [address]Ygnchhkimz91-68-8498 17:44-0500Body mass index (BMI) [Ratio]57.31 kg/m2Mckayla Blas [employer] Work Phone: [facility] HospitalSrvmjcobzb50-10-2190 17:44-0500Body temperature 98.01 [degF]Mckayla Sowdona [employer] Work Phone: [facility] HospitalLqxbldjalg23-59-6584 17:44-0500Body niyfig922.97 kgMckayla Juanjosecayetanodallin [employer] Work Phone: [facility] HospitalOicwsgyiee87-24-9864 17:44-0500Diastolic blood yzzogzqc03 mm[Hg]Mckayla Wan [employer] Work Phone: [facility] HospitalArqhlnpaer53-26-1449 17:44-0500Heart rate83 /min Mckayla Wan [employer] Work Phone: [facility] HospitalAihsvlbixf59-48-2905 17:44-0500Respiratory rate18 /minMckayla Blas [employer] Work Phone: [facility] HospitalLexfgrsfyr52-64-8670 17:44-1604MxD9% (BldA) [Mass fraction]91 %Mckayla Patriciadallin [employer] Work Phone: [facility] HospitalPfuosoglan77-56-8821 17:44-0500Systolic blood mm[Hg]Mckayla Patriciadallin [employer] Work Phone: [facility] HospitalLleomkqigx44-31-3492 10:00-0500Blood Pressure LocationPaalexezra ARAUZ [facility] [place] 132262-04-2024 10:00-0500Diastolic blood ftemwfvj02 mm[Hg]Elbert ARAUZ [facility] [place] 132262-04-2024 10:00-0500Heart rate76 /minElbert ARAUZ [facility] [place] 132262-04-2024 10:00-0500Systolic blood odubodwi494 mm[Hg]Elbert ARAUZ [facility] [place] 135241-19-2024 10:20-0500Body .2 Reji Souza MD Work Phone: [address] [place], [place] [address]Nacfnbinao47-45-9505 10:20-0500Body mass index (BMI) [Ratio]56.7 kg/q2QxrexRain Souza MD Work Phone: [address] [place], [place] [address]Zxqxoqhyab34-64-3138 10:20-0500Body .2 kgRain Souza MD Work Phone: [address] [place], [place] [address]Rvozxkewsk51-86-1156 10:20-0500Diastolic blood qjxhgvul34 mm[Hg]Rain Souza MD Work Phone: [address] [place], [place] [address]Yruhbbitux12-02-2816 10:20-0500Heart rate72 /min Rain Souza MD Work Phone: [address] [place], [place] [address]Dvozqeytrv24-06-4295 10:20-0500Respiratory rate16 /minRain Souza MD Work Phone: [place] [address]Jjctxsswfp48-41-1495 10:20-0500Systolic blood ihqkkoqg526 mm[Hg]Rain Souza MD Work Phone: [address] [place], [place] [address]Mhuousypuk81-42-3889 10:27-0400Body pnrery568.1 Jamal Blas [employer] Work Phone: [facility] HospitalVbxnptqrms53-16-2140 10:27-0400Body mass index (BMI) [Ratio]61.01 kg/m2Mckayla Blas [employer] Work Phone: [facility] HospitalBjqiovqcex40-81-6073 10:27-0400Body temperature 98.49 [degF]Mckayla Blas [employer] Work Phone: [facility] HospitalXmcenekxtq99-51-4594 10:27-0400Body othkzk874.29 kgMckayla Blas [employer] Work Phone: [place] [address]Ykgxxtuwgq37-06-2263 10:27-0400Diastolic blood juqxtaps78 mm[Hg]Mckayla Blas [employer] Work Phone: noSh[facility] for ChildrenOuujlgovmj04-64-7770 10:27-0400Heart rate77 /min Mckayla Blas [employer] Work Phone: [facility] HospitalKzeoahbywb33-50-8729 10:27-0400Respiratory rate19 /minMckayla Blas [employer] Work Phone: [facility] HospitalRcnqtcolmj60-49-2425 10:27-3739GcP2% (BldA) [Mass fraction]92 %Mckayla Blas [employer] Work Phone: [facility] HospitalEnjjpnnnfm91-28-0991 10:27-0400Systolic blood bihxvxsb479 mm[Hg]Mckayla Blas [employer] Work Phone: [facility] HospitalHtiedlderx97-02-0337 15:00-0400Body nsegsv804.18 cmAbdul Tico Other [facility] [place] Other 6-682985-68688755-21-1914 15:00-0400Body bgiylctagvh64.6 [degF]Stephanie Tico Other [facility] Other 128847-40-5896 15:00-0400Diastolic blood mm[Hg] Stephanie Tico Other [facility] Other 08-31-2022 15:00-0400Respiratory rate20 /minAbdul Tico Other [facility] Other 4-642185-84901013-77-9358 15:00-8214QyP7% (BldA) [Mass fraction]91 % Stephanie Tico Other [facility] Other 727660-87-4478 15:00-0400Systolic blood kibvdhqz571 mm[Hg] Stephanie Tico Other [facility] Other 08-15-2022 09:20-0400Body gossdh901.18 cmAbdul Tico Other [facility] Other 08-15-2022 09:20-0400Body zwisrukljnd69.5 [degF]Stephanie Tico Other [facility] Other 08-15-2022 09:20-0400Diastolic blood ovfjsmwr18 mm[Hg] Stephanie Tico Other [facility] Other 08-15-2022 09:20-0400Respiratory rate20 /minAbdul Tico Other [facility] Other 08-15-2022 09:20-1564XmG5% (BldA) [Mass fraction]91 % Stephanie Tico Other [facility] Other 08-15-2022 09:20-0400Systolic blood ordjxdjl812 mm[Hg] Stephanie Tico Other [facility] Other 08-01-2022 10:24-0400Blood Pressure LocationPabaptist health richmondezra ARAUZ [facility] 08-01-2022 10:24-0400Diastolic blood psuopptv03 mm[Hg] Elbert ARAUZ [facility] 08-01-2022 10:24-0400Heart rate70 /minPabaptist health richmondezra ARAUZ [facility] 08-01-2022 10:24-0400Respiratory rate16 /minPatrick REGLA [facility] 08-01-2022 10:24-0400Systolic blood mm[Hg] Elbert ARAUZ [facility] Encounters Encounter DateEncounter TypeCare ProviderFacilityStart: 87-50-1173ibdlnrwhvtUaah Jo Aichholz MANAGER LABORATORY-CNPFacility:[facility]art: 05-22-2025 ambulatoryLance Huey Urias DPMFacility:[facility]ertart: 05-18-2025 End: 09-50-2861gahtkejuypQprn Jo Aichholz MANAGER LABORATORY-CNPFacility:[facility]Start: 04-29-2025 End: 07-48-7999qmkzwmrsdwDhkr J Aichholz [employer]-C Work Phone: -[facility] ClydeStart: 04-29-2025 End: 99-19-4143Cmidhoj encounter procedureLisa Krystal Blas [employer]-C-[facility] Work Phone: Start: 04-23-2025 End: 45-90-6593zdcgqaxhftNtqfqr Nas Rojas MANAGER LABORATORY-CNPFacility:[facility] FindlayStart: 04-17-2025 End: 95-64-6393dwkxlgzkkgWnga Jo Aichholz MANAGER LABORATORY-CNPFacility:[facility]ertart: 04-06-2025 End: 38-23-6507utqxaqpouyRcrm J Aichholz [employer]-C Work Phone: [facility] Work Phone: Start: 04-06-2025 End: 30-45-5616Zkyqssg encounter procedureLisa Krystal Blas [employer]-C-[facility] [place] Work Phone: Start: 64-92-6011Hkxflrc encounter procedureMckayla Blas [employer]ER-C Work Phone: [facility]tart: 20-10-8171Eba- patient / Non-visitLanashley Urias DPM-[facility] Work Phone: Start: 42-00-2040Jwi-patient / Non-visitPrice Ramsey DO-[facility] Work Phone: Start: 11-11-0117gylmuoikzxWasqgr Nas Bob MANAGER LABORATORY-CRAB [employer]CHER [facility]Start: 03-23-2025 End: 99-44-4188tjqyjfcsrqOfgurq Nas Bob MANAGER LABORATORY-CNPFacility:[facility] FindlayStart: 03-11-2025 End: 53-76-4390tofwmzjkdnBsgqd Huey Urias DPMFacility: [facility]trStart: 03-09-2025 End: 41-32-9888EigycaEttd Aichholz NP Work Phone: [facility] FMComment on above:Tobacco user; Encounter for smoking cessation counselingStart: 01-29-2025 End: 73-69-0575Mwctcj Jack Souza MD Work Phone: noms ENDOCRINOLOGYStart: 01-29-2025 End: 73-20-2755Dectujashley Souza MD Work Phone: [facility]oms ENDOCRINOLOGYStart: 01-29-2025 End: 42-20-8596Unpjryfgh Result EncounterGeneric External Data ProviderNOMS External Department UnsolicitedStart: 01-29-2025 End: 17-60-5073oscibxbycxZXVCFRichard Negron AvailableStart: 01-29-2025 End: 86-56-7351Drwpxb outpatient visit 25 minutesRain Souza MD Work [...] index (BMI) of50.0 to 59.9 in adult ([facility])Start: 01-26-2025 End: 22-27-2029jnrhnjrfmvUYCE AICHHOLZNot AvailableStart: 01-26-2025 End: 10-12-1925Ishjpvo encounter Marcela Blas NP Work Phone: noms CWM FMComment on above:Encounter for subsequent annual wellness visit (AWV) in Medicare patient (Primary Dx); Mixed hyperlipidemia ; Type 2 diabetes mellitus with complication, with long-term current use of insulin (HCC); Bilateral lower extremity edema; Gastro-esophageal reflux disease without esophagitis; Chronic diastolic heart failure ([facility]); Primary hypertension ; Pulmonary hypertension ([facility]); Diabetic polyneuropathy associated with type 2 diabetes mellitus ([facility]); Pulmonary emphysema, unspecified emphysema type ([facility]); Moderate persistent asthma without complication ([facility]); Insomnia; Non-seasonal allergic rhinitis, unspecified trigger; Type 2 diabetes mellitus with unspecified complications ([facility]); Anxiety and depression ; Antibiotic-induced yeast infection; Chronic obstructive pulmonary disease, unspecified (HCC); Hyperlipidemia, unspecified ; Vaginal yeast infection; Morbid (severe) obesity due to excess calories ([facility])Start: 01-06-2025 End: 28-59-2175gaihsiuweeYBQTAKE [facility] Centertart: 12-18-2024 End: 34-74-4702TxrtncFxbr Aichholz [employer] Work Phone: [facility] CWM FMComment on above:Hyperlipidemia, unspecified ; Tobacco user; Encounter for smoking cessation counselingStart: 12-09-2024 End: 18-23-5020Hawnfk Shirlene Blas [employer] Work Phone: noms CWM FMStart: 12-09-2024 End: 33-31-9718Yvqrvv Shirlene Blas NP Work Phone: [facility] C[facility] FMStart: 12-09-2024 End: 81-26-6779byfndogzmaOWMR AICCayetanoHOLZNot AvailableStart: 12-09-2024 End: 42-48-6281Nezfeq outpatient visit 25 minutesMckayla Blas [employer] Work Phone: noms CW FMComment on above:Cellulitis of left lower extremity (Primary Dx); COPD exacerbation (CMS/HCC); Primary hypertension (CMS/HCC); Pulmonary hypertension (CMS/HCC); Morbid (severe) obesity due to excess calories ([facility]/HCC); Type 2 diabetes mellitus with complication, with long-term current use of insulin ([facility]); Anxiety and depression ([facility]); Fever, unspecified fever causeStart: 12-04-2024 End: 13-68-5203Ofvjjdxpu Result EncounterGeneric External Data ProviderNOMS External Department UnsolicitedStart: 12-04-2024 End: 93-42-0466Vkxblyuab Result EncounterGeneric External Data ProviderNONE External Department UnsolicitedStart: 10-27-2024 End: 44-07-1189ebsabbjwkaNAWN AICHHOLZNot AvailableStart: 10-27-2024 End: 16-63-8468Fjqagv outpatient visit 25 minutesMckayla Blas [employer] Work Phone: [facility] FMComment on above:Primary hypertension (CMS/HCC) (Primary Dx); Diabetic polyneuropathy associated with type 2 diabetes mellitus ([facility]/HCC); Chronic diastolic heart failure ([facility]/HCC); Bilateral lower extremity edema; Morbid (severe) obesity due to excess calories ([facility]/HCC); Type 2 diabetes mellitus with complication, with long-term current use of insulin ([facility]/HCC); Anxiety and depression ([facility]/HCC); Cigarette nicotine dependence without complication; Encounter for screening mammogram for malignant neoplasm of breast; Insomnia; Non-seasonal allergic rhinitis, unspecified trigger; Type 2 diabetes mellitus with unspecified complications; Vitamin D deficiency, unspecified; Gastro-esophageal reflux disease without esophagitis; PAD (peripheral artery disease) ([facility]/HCC); Gastroesophageal reflux disease, unspecified whether esophagitis present; Venous ulcer of right leg ([facility])Start: 10-21-2024 End: 25-93-5455FjaiifUgnh Aichdallin [employer] Work Phone: noms CWM FMComment on above:Chronic obstructive pulmonary disease, unspecifiedStart: 10-08-2024 End: 64-03-0234Jgnegzirl Result EncounterLisa Blas [employer] Work Phone: noms External Department UnsolicitedStart: 10-08-2024 End: 21-08-0523Cndrcjkfy Result EncounterLisa Blas [employer] Work Phone: noms External Department UnsolicitedStart: 10-08-2024 End: 47-97-1546Kdidfe outpatient visit 25 Adolfo Souza MD Work [...] of50.0 to 59.9 in adultStart: 10-08-2024 End: 28-65-1253jfkcgtqopyEKUHL F SABBAGHNot AvailableStart: 08-27-2024 End: 97-97-2159Cqgblb outpatient visit 25 minutesMckayla Wan SCHAEFER Work [...] complication, with long-term current use of insulin ([facility]); Tobacco user; Mixed hyperlipidemia ([facility]); Gout, unspecified cause, unspecified chronicity, unspecified site; Vitamin deficiency; Gastro-esophageal reflux disease without esophagitis; Edema, unspecified; Edema; Hyperlipidemia, unspecified ([facility]); Encounter for smoking cessation counseling; Venous ulcer of right leg ([facility]); Antibiotic-induced yeast infectionStart: 08-27-2024 End: 56-70-7827tjinfwxgrzEJXTTaj Kendall AvailableStart: 08-27-2024 End: 27-33-4655Hupkprqvr Result EncounterGeneric External Data ProviderNOMS External Department UnsolicitedStart: 08-27-2024 End: 17-88-2258Swtxindcv Result EncounterGeneric External Data ProviderNOMS External Department UnsolicitedStart: 08-08-2024 End: 76-08-2193hihnzaacryHAKDHThe University of Toledo Medical Centertart: 07-17-2024 End: 28-91-3090IdavtfSqty Aichholz NP Work Phone: noms CWM FMStart: 07-14-2024 End: 53-81-8400Lyadqu outpatient visit 25 Heena Blas NP Work Phone: noms CWM FMComment on above:Primary hypertension ([facility]) (Primary Dx); Diabetic polyneuropathy associated with type 2 diabetes mellitus ([facility]); Pulmonary emphysema, unspecified emphysema type ([facility]); Critical limb ischemia of right lower extremity ([facility]); PAD (peripheral artery disease) ([facility]); Gastroesophageal reflux disease, unspecified whether esophagitis present; Bilateral lower extremity edema; Venous ulcer of right leg ([facility]); Type 2 diabetes mellitus with complication, with long-term current use of insulin ([facility]); Tobacco user; Encounter for smoking cessation counseling; Kidney stone; Adrenal mass 1 cm to 4 cm in diameter ([facility]); Radiculopathy, lumbar region; Non-seasonal allergic rhinitis, unspecified trigger; Type 2 diabetes mellitus with unspecified complications ([facility])Start: 07-14-2024 End: 77-77-3584lwqkmdtcybAVVP AICHHOLZNot AvailableStart: 07-05-2024 End: 84-90-5091CryyfuCfnu Aichholz SILVANO Work Phone: [facility] FMComment on above:Bilateral lower extremity edemaStart: 06-11-2024 End: 43-56-1580emlelpllbdDkmxjej R REGLAFacility:EU SanduskyStart: 06-11-2024 End: 75-29-5036Zvsyyvt encounter procedurePanaomy ARAUZ [facility] Start: 05-27-2024 End: 34-01-0437Eosalv Jack Souza MD Work Phone: noms ENDOCRINOLOGYStart: 05-27-2024 End: 01-10-4981Xqmttcyousif Souza MD Work Phone: noms ENDOCRINOLOGYStart: 05-27-2024 End: 62-73-2482sixrzfohqrLBZXW F SABBAGHNot AvailableStart: 05-27-2024 End: 41-35-9477Vgwzbb outpatient visit 25 minutesRain Souza MD Work Phone: noms ENDOCRINOLOGYComment on above:Type 2 diabetes mellitus with hyperglycemia, with long-term current use of insulin (CMS/[facility]) (Primary Dx); Encounter for dietary consultation; Vitamin D deficiency; Primary hypertension (CMS/HCC); Insulin long-term use (CMS/HCC); Hyperlipemia, mixed (CMS/HCC); Microalbuminuria; Class 3 severe obesity due to excess calories with serious comorbidity and body mass index (BMI) of50.0 to 59.9 in adult (CMS/HCC)Start: 05-12-2024 End: 14-83-3641Jeiznkezh Result EncounterGeneric External Data ProviderNOMS External Department UnsolicitedStart: 05-12-2024 End: 81-14-0688Lyqnivuqk Result EncounterGeneric External Data ProviderNOMS External Department UnsolicitedStart: 85-80-0975qjjptksfuqXAEEOENW E SILVIA Facility:[facility] [place]Start: 04-24-2024 End: 58-90-3865Muxauonyj Result EncounterGeneric External Data ProviderNOMS External Department UnsolicitedStart: 04-24-2024 End: 93-95-9116Qrakqjfxs Result EncounterGeneric External Data ProviderNOMS External Department UnsolicitedStart: 04-14-2024 End: 86-27-1743Zepbrt flowsheetMckayla Blas [employer] Work Phone: noms CWM FMStart: 04-14-2024 End: 48-78-3051Dwjysg flowsheetMckayla Blas [employer] Work Phone: noms CWM FMStart: 04-14-2024 End: 16-67-0286Yyppqi outpatient visit 25 minutesLisa Blas [employer] Work Phone: noms CWM FMComment on above:Primary [...] Tobacco user; Hyperpigmentation of skinStart: 04-14-2024 End: 30-36-0545chwrmdmeceHVDP AICHRAVIZNot AvailableStart: 04-05-2024 End: 10-20-3990WihkpnOqib Aichholz [employer] Work Phone: noms CWM FMComment on above:Hyperlipidemia, unspecified (CMS/HCC); Bilateral lower extremity edemaVitamin D deficiency, unspecifiedStart: 15-67-9893Nsmggwi encounter Mary Ann Souza MD Work Phone: [facility]OM[facility] HealthcareStart: 12-14-2023 End: 18-95-4254Vojauekqx Result EncounterLisa Harshadholz [employer] Work Phone: noms External Department UnsolicitedStart: 12-14-2023 End: 83-32-8550Awwgpspel Result EncounterLisa Harshadholz [employer] Work Phone: noms External Department UnsolicitedStart: 08-31-2023 End: 23-35-2242Mcyujlkzv Result EncounterAmy Cari MAYERS Work Phone: noms External Department UnsolicitedStart: 08-31-2023 End: 23-13-2738Mfievbdox Result EncounterAmy Cari MAYERS Work Phone: noms External Department UnsolicitedStart: 08-17-2023 RefillLisa Patriciaholz [employer] Work Phone: noms CWM FMComment on above:Vaginal yeast infection (Primary Dx)Start: 76-14-7624TecwanZliv Aichholz [employer]ED [employer] P[employer]ER Work Phone: NONC CWM FMComment on above:Type 2 diabetes mellitus with unspecified complications (CMS/HCC); Edema, unspecified; EdemaStart: 04-09-3506pmrvqmsfjtJIOAZHTCWSFO LAKSHMIPATHY .Facility:C1Rbcus: 12-05-2022 End: 49-88-3409Iwrsbmhzxc and management of inpatientJESSICA ALONDRA .Facility:H1 Start: 11-23-2022 End: 24-34-1510mxoasybgcoPNE MCKAYLA AICHHOLZFacility:U1Wlhus: 11-22-2022 End: 55-34-9126ffkthzjqanMBX MCKAYLA AICHHOLZFacility:S6Pfqgu: 11-17-2022 End: 10-73-3872qmbtayfiqhHERMGIP HALKER .Facility:S3Gbrxx: 11-15-2022 End: 16-90-0491Hthzuwn encounter procedureJENNIFER E SILVIA [facility] start: 10-05-2022 End: 84-12-2291clmiprzbkrOBTWVZ DIAB .Facility:D9Viiyl: 09-21-2022 End: 44-32-2404uoucuxoajkQNZ MCKAYLATaryn BLASFacility:R8Vubgx: 52-17-7435etjwlhjdcl COMFORT CULLENFacility:U1Vflcq: 08-24-2022 End: 01-74-8450rlnrxebenjKH CHAPARRO S MORTENSEN .Facility:Y5Lxnsl: 08-21-2022 End: 99-94-6309lswaqlanbyTLEHF D [facility]ENTERFacility:A6Pivya: 07-27-2022 End: 38-65-6036uceeqlvrukSRVK TAMLYN .Facility:I3Limhb: 07-18-2022 End: 88-18-5629tqlimbudntUHCF TAMLYN .Facility:A1Bsghh: 07-18-2022 End: 48-88-5776zpeifvoexwPBTLT D [facility]ENTERFacility:H8Vnvhq: 07-06-2022 End: 52-50-3618kcxyytzhncGRW MCKAYLA WANFacility:X2Rwloy: 05-11-2022 End: 24-66-5350pbtaxxsnsxJHPA VALENZUELA .Facility:V4Rvedt: 04-25-2022 End: 77-85-6093ydktyphxtpXE CHAPARRO S MORTENSEN .Facility:B2Upezd: 04-20-2022 End: 41-99-3633yzfzykhigiCRKH VALENZUELA .Facility:M5Whiwc: 03-08-2022 End: 38-23-6319kxwokeyzggZnimn Tico Other [facility] Other Start: 46-77-2591Yjyhbf outpatient visit 15 minutes Stephanie QadirFPG NephrologyStart: 03-03-2022 End: 86-23-3946klezwvsnwnJMB MCKAYLA Judicility:N6Wceyw: 02-20-2022 End: 38-11-4193vcqdrrkuiqJyzir Tico Other [facility] Other Start: 39-61-0801Ndcvjb outpatient new 45 minutesAbdul QadirFPG NephrologyStart: 02-06-2022 End: 02-47-5107Npsvhyn encounter procedureElbert Mahnaz ARAUZ [facility] Wilfredo start: 01-19-2022 End: 34-90-3757uobbcoqyqkMHSK SOLIS .Facility:K7Manrq: 12-24-2021 End: 52-60-6353mrfkjvdqmlMFJFN PARKERFacility:A2Yyiqm: 08-26-2020 End: 76-06-8607Uphetsg encounter procedureVITHAL GABINODGEFacility:UTMCStart: 10-30-2019 End: 89-63-8291Acgiumbmt department patient visitDOLawrence Memorial Hospitaltart: 10-30-2019 End: 19-57-9049Hkpmbvhws department patient visitKindred Hospital Dayton Emergency DepartmentStart: 90-05-1920Plbwmvydbjdg stateAbdul Tico Other [facility] Other Procedures DateProcedureProcedure DetailPerforming ClinicianStart: 31-86-9881FN ECHO DOPPLER COMPLETEGeneric External Data ProviderStart: 93-19-0876Ybmh bld gluc mntr dev cleared fda spec home useAhart Souza MD Work Phone: Start: 10-50-4104ZNYBX CULTURE 2Generic External Data ProviderStart: 23-13-6988KDYRC CULTURE 1Generic External Data ProviderStart: 25-04-0589Seqa bld gluc mntr dev cleared fda spec home useRain Souza MD Work Phone: Start: 51-03-7168QSK UA (CLEAN/CATCH) MICROSCOPIC IF INDICATELisa Aichholz [employer] Work Phone: Start: 63-29-8199PKJ CBC WITH AUTO DIFFGeneric External Data ProviderStart: 64-81-7796Zmex bld gluc mntr dev cleared fda spec home useRain Souza MD Work Phone: Start: 21-92-9647HM LUMBAR SPINE WO CONGeneric External Data ProviderStart: 86-81-9252VX ABDOMEN PELVIS W CONGeneric External Data ProviderStart: 53-92-7697TFD CREATININEGeneric External Data ProviderStart: 89-94-9593WKUXQPHIK BLOOD PRESSUREGeneric External Data ProviderStart: 22-93-8830CO TOMOSYNTHESIS SCREENING Chyna Blas NP Work Phone: Start: 58-19-2085XulbuomuaygGwetl Sabbagh MD Work Phone: Start: 80-07-4855UMCUN CULTURE 2Generic External Data ProviderStart: 20-29-4447IZEIU CULTURE 1Generic External Data ProviderStart: 99-92-5076QUT 12-LEADAmy Cari MAYERS Work Phone: Start: 17-34-2621AgmitkoshnyKocj Aichholz NP Work Phone: Start: 29-39-2930Khltcpgntvx observation [Identifier] in Cervix by Cyto stainMckayla Blas NP Work Phone: H/O: hysterectomyPatrick Moped Laparoscopic cholecystectomyPatrick Moped Operative procedure on footPatrick Moped Plan of Treatment DateCare ActivityDetailAuthorStart: 02-01-2026 End: 33-28-1585Zrgzlfb encounter procedureNOMS CWM FMStart: 07-21-2026Medicare Annual Wellness (AWV)Medicare Annual Wellness (AWV)NOM[facility] HealthcareStart: 99-53-8555Aeowl screening for proteinDiabetes: Urine Protein ScreeningNOMS HealthcareStart: 15-69-2488Faptiqgwy for malignant neoplasm of colonNOMS HealthcareStart: 90-56-3169Rmdgvnor screeningDiabetes: Retinopathy ScreeningNOMS HealthcareStart: 05-28-2025 End: 18-89-4942Dhrxfst encounter procedureNOSAINT JOHN'S [facility] ENDOCRINOLOGYStart: 05-13-2025 Glaucoma screeningDiabetes: Retinopathy ScreeningJefferson Memorial HospitalStart: 15-87-1747Jpmgifqsti A1c measurementDiabetes: Hemoglobin Q8NGNQQJefferson Memorial Hospital Start: 04-29-2025 End: 17-64-7581Gwlebgg encounter procedureNOOKLAHOMA SPINE [facility] [place] FMStart: 78-46-1178Fjnzmsxgx vaccinationUTAH STATE HOSPITAL HealthcareStart: 01-28-2025 End: 24-01-6857Teobgpd encounter rluhlsrsc40/23/2025 10:50 AM EDT Office Visit [facility] [address] [place] [id number] Rain Souza MD [address] [place] [address] [facility]CRINOLOGYStart: 01-26-2025 End: 85-79-6075Ftotllj encounter /21/2025 6:00 PM EDT [facility] [place] [address] [place] [address] Mckayla Blas, CULLED FRUIT PACKER [address] [place] [address] [facility] FMStart: 07-11-2025Medicare Annual Wellness (AWV) Medicare Annual Wellness (AWV)[facility] HealthcareStart: 63-47-2677Uquumhltwh A1c measurementDiabetes: Hemoglobin Y3AIGLXJefferson Memorial HospitalStart: 12-15-2024 End: 37-25-2051KO Breast - bilateral ScreeningBilateral screening mammogram Imaging Routine Encounter for screening mammogram for malignant neoplasm of breast Expected: 12/15/2024 (Approximate), Expires: 12/27/2025[facility] Work Phone: Comment on above:Expected: 12/15/2024 (Approximate), Expires: 12/27/2025Start: 57-60-4018Igflfvmgy for malignant neoplasm of breast MammogramJefferson Memorial HospitalStart: 31-92-0757Mmlmv screening for proteinDiabetes: Urine Protein ScreeningUT[facility] HealthcareStart: 10-27-2024 End: 11-78-2707Tkbvbnz encounter vuyewomil05/21/2025 2:00 PM EDT Office Visit [facility] [address] [place] [address] Mckayla Blas, CULLED FRUIT PACKER [address] [place] [address] [facility] FMStart: 10-08-2024 End: 79-86-3009Pybtscn encounter sxarorylr57/02/2025 11:20 AM EDT Office Visit [facility] [address] [place] [address] Rain Souza MD [address] [place] [address] [facility] ENDOCRINOLOGYStart: 08-27-2024 End: 81-78-7629Euirlfk encounter atmfbiqcb81/19/2025 5:30 PM EST Office Visit [facility] [address] [place] [address] Mckayla Blas, SILVANO [address] [place] [address] [facility] FMStart: 08-27-2024 End: 130390-jsrrvsepaycfia D3 [Mass/volume] in Serum or PlasmaVitamin D 25 hydroxy Lab Routine Vitamin deficiency Expected: 08/27/2024 (Approximate), Expires: 08/27/2025NONE HealthcareComment on above:Expected: 08/27/2024 (Approximate), Expires: 08/27/2025Start: 00-53-1569Osclynqycv A1c measurement Diabetes: Hemoglobin Q1NWGQEShriners Hospitals for ChildrenStart: 08-27-2024 End: 91-34-5553Wqmvlgy function 2000 panel - Serum or PlasmaHepatic function panel Lab Routine Hyperlipidemia, unspecified ([facility]) Expected: 08/27/2024 (Approximate), Expires: 08/27/2025[facility] HealthcareComment on above:Expected: 08/27/2024 (Approximate), Expires: 08/27/2025Start: 08-27-2024 End: 70-20-5084Fnqkw 1996 panel - Serum or PlasmaLipid panel Lab Routine Mixed hyperlipidemia ([facility]/HCC) Expected: 08/27/2024 (Approximate), Expires:08/27/2025 [facility] Healthcare Work Phone: Comment on above:Expected: 08/27/2024 (Approximate), Expires: 08/27/2025Start: 08-27-2024 End: 11-96-7375Xnsovyvirhch/Creatinine panel in random UrineMicroalbumin / creatinine, urine ratio Lab Routine Primary hypertension ([facility]) Type 2 diabetes mellitus with complication, with long-term current use of insulin ([facility]) Expected: 08/27/2024 (Approximate), Expires: 08/27/2025[facility] Healthcare Comment on above:Expected: 08/27/2024 (Approximate), Expires: 08/27/2025Start: 08-27-2024 End: 54-28-2509Ohssw [Mass/volume] in Serum or PlasmaUric acid Lab Routine Gout, unspecified cause, unspecified chronicity, unspecified site Expected: (Approximate), Expires: 08/27/2025[facility] HealthcareComment on above: Expected: 08/27/2024 (Approximate), Expires: 08/27/2025Start: 08-27-2024 End: 94-18-9645Ftlzxiwnwk complete panel - UrineUrinalysis with reflex microscopic (clean catch) Lab Routine Primary hypertension ([facility]) Type 2 d iabetes mellitus with complication, with long-term current use of insulin ([facility]) Tobacco user Gout, unspecified cause, unspecified chronicity, unspecified site Expected: 08/27/2024 (Approximate), Expires: 08/27/2025[facility] HealthcareComment on above:Expected: 08/27/2024 (Approximate), Expires: 08/27/2025Start: 08-26-2024 End: 22-68-5833Lacysdq encounter hrznelncg13/18/2025 10:30 AM EST Office Visit [facility] [address] [place] [address] Rain Souza MD [address] [place] [address] [facility] ENDOCRINOLOGYStart: 07-14-2024 End: 76-14-9963Aajdxlw encounter umlgqfyvv02/06/2025 6:30 PM EST Office Visit [facility] [address] [place] [address] Mckayla Blas NP [address] [place] [address] [facility] FMStart: 07-14-2024 End: 85-40-1718Pbgkcah encounter gsyzanxlt54/06/2025 10:10 AM EST Office Visit [facility] [address] [place] [address] Rain Souza MD [address] [place] [address] [facility]INOLOGYStart: 61-58-8985Pnukmculm vaccinationInfluenza Vaccine (#1)[facility] HealthcareComment on above:Postponed from 03/09/2024 (Patient Refused)Start: 05-27-2024 End: 33-05-8173Ktllndg encounter yegypdbnf24/19/2024 9:50 AM EST Office Visit [facility] [address] [place] [phone] Rain Souza MD [address] [place] [address] [facility] ENDOCRINOLOGYStart: 21-36-2808Auiumieaeg A1c measurementDiabetes: Hemoglobin W2DOKUI HealthcareStart: 05-15-2024 End: 39-90-5437Spryw rvrbzyzghxh61/07/2024 Abstract [facility] [address] [place] [address] Rain Souza MD [address] [place] [address] [facility]CRIN[facility]YStart: 05-15-2024 End: 51-12-9777Igzrcir encounter bwfwigkgn43/07/2024 11:20 AM EST Office Visit [facility] [address] [place] [address] aRin Souza MD [address] [place] [address] [facility]INOLOGYStart: 04-17-2024 End: 65-32-5959Vfkqhth encounter zcdzihucl22/10/2024 3:40 PM EDT Office Visit [facility] [address] [place] [address] Mckayla Blas, C[employer]ED FRUIT PACKER [address] [place] [address] [facility] FMStart: 04-14-2024 End: 91-04-1480Okemlxx encounter qoeaygihd93/07/2024 11:00 AM EDT Office Visit [facility] [address] [place] [address] Mckayla Blas, CULLED FRUIT PACKER [address] [place] [address] ArrivedNOMS CW FMComment on above:ArrivedStart: 03-09-2024 Influenza vaccinationInfluenza Vaccine (#1)[facility] HealthcareStart: 02-19-2024 Hemoglobin A1c measurementDiabetes: Hemoglobin O1VFKGO HealthcareStart: 52-52-7325Fsczn screening for proteinDiabetes: Urine Protein ScreeningNONE HealthcareStart: 40-77-7881Phgtvsgvo for malignant neoplasm of breastMammogram [facility] HealthcareStart: 10-15-2023 End: 76-60-7726Lcluoba encounter ilellmvzg22/08/2024 4:30 PM EDT Office Visit [facility] [address] [place] [address] Mckayla Blas, CULLED FRUIT PACKER [address] [place] [address] [facility] FMStart: 23-08-3698Vbrgvkjgzw A1c measurement Diabetes: Hemoglobin R4UIVMI HealthcareStart: 74-39-5529Mfepxflp screening Diabetes: Retinopathy ScreeningNONE HealthcareStart: 93-66-6786Ifdchwqlm vaccinationFlu vaccine (Season Ended)[facility]: 10-07-2018 Screening for malignant neoplasm of cervixNONE HealthcareStart: 00-70-5749Yrecg panelLipid screenUK Healthcare: 37-07-1181Upmzyikqd for malignant neoplasm of cervixHPV/CotestNONE HealthcareStart: 83-72-2417Ldvrqziun for malignant neoplasm of cervixCervical cancer [facility]: 48-08-0236LYjS/Tdap/Td vaccine (1 - Tdap)DTaP/Tdap/Td vaccine (1 - Tdap)[facility]: 32-81-3940TQO screeningHIV [facility]: 02-17-1971Medicare Annual Wellness (AWV)Medicare Annual Wellness (AWV)[facility] HealthcareStart: 13-14-0010Mwijsrilm for malignant neoplasm of colonNOMS HealthcareBLOOD CULTURE 1BLOOD CULTURE 1 Lab Routine 12/04/2024 4:44 PM EDTNOMS HealthcareBLOOD CULTURE 2BLOOD CULTURE 2 Lab Routine 12/04/2024 5:28 PM EDTNONE Healthcare Immunizations Immunization DateImmunizationNotesCare BqmtmeyePwckitzw42-01-2838yophhahhi, injectable, quadrivalent, contains preservativeMckayla Blas CULLED FRUIT PACKER Work Phone: NOShriners Hospitals for ChildrenOjaucsqppu64-89-3056ebcdrnokg virus vaccine, unspecified formulationRain Souza MD Work Phone: [facility]01-11-2022SARS-CoV-2 (COVID-19) mRNA BNT-162b2 vaxJENNIFER SILVIA [facility]04-22-2021SARS-CoV-2 (COVID-19) mRNA BNT-162b2 vaxJENNIFER SILVIA [facility]04-02-2021SARS-CoV-2 (COVID-19) mRNA BNT-162b2 vaxJENNIFER SILVIA [facility]10-09-2017influenza virus vaccine, H5N1, A/ (national stockpile)Mckayla Blas CULLED FRUIT PACKER Work Phone: [facility] HospitalBovmfxyqyu13-27-7146yvtvwakdn virus vaccine, unspecified formulationRain Souza MD Work Phone: NOShriners Hospitals for ChildrenDcwxoflcfp86-93-5232chnlxlbgb, unspecified formulationPabaptist health richmondk ARAUZ [facility] [place] 135240-09-2017pneumococcal polysaccharide vaccine, 23 valMunira Souza MD Work Phone: [facility] Jgumtquogf32-65-9545tphvukuxr virus vaccine, H5N1, A/ (national stockpile)Mckayla Blas CULLED FRUIT PACKER Work Phone: noShriners Hospitals for ChildrenZlkrtotjip15-23-0231vqqjhclqj virus vaccine, unspecified formulationRain Souza MD Work Phone: noShriners Hospitals for ChildrenHknbbwfevw81-33-2762hcspreapx, unspecified formulationPatrick ARAUZ [facility]y10-25-2013influenza virus vaccine, whole virusRain Souza MD Work Phone: NOShriners Hospitals for ChildrenPudqqjwyko51-27-6376zvpexeuxe, injectable, quadrivalent, contains preservativeLisa Aichholz CULLED FRUIT PACKER Work Phone: [facility] HospitalRapivgbbnv35-46-3171owtxkcgbq, wholePatrick ARAUZ [facility] Hospitaly07-24-1998measles, mumps and rubella virus vaccineRain Souza MD Work Phone: [facility] Healthcare Payers DatePayer CategoryPayerPolicy [id number] 2024Medicare (Managed Care)[id number] Health [id number] [id number] 2019[place]icaid[place] [id number] 2018-Present [phone] [address] [place] [address]Medicaid [id number] 2013Medicare [id number] 2.16.840.1.249711.3.57[id number] 2.16.840.1.943214.3.579.[id number] 2.16.840.1.767984.3.579.2.99855-08-8953Lclqadq4468577 2..840.1.331636.3.57[id number] 2..840.1.690912.3.579.2.82185-39-1456Zwsnetz4153985 2.840.1.517229.3.579.2.28685-78-3400Gvhljgo8399934 2.840.1.122557.3.579.2.39434-62-0903Oiqmxfx2283568 2.840.1.474650.3.579.2.73352-38-6528Qhemyik2604521 2.0.1.220288.3.579.2.71904-88-4554Wfzjfdr0216066 2.840.1.246106.3.579.2.55644-10-1972Ftgmfpj8322904 2.840.1.337486.3.579.2.78106-92-4430Ueomfhj1455054 2.840.1.353378.3.579.2.21983-64-5028Ocprlng0868365 2.840.1.090746.3.579.2.83045-67-3235Yejgptr9121327 2.840.1.422815.3.579.2.91078-36-0168Lqggspu1057435 2.840.1.025550.3.579.2.10769-56-5893Qjfvgod9268439 2.840.1.286532.3.579.2.94207-33-8844Sarihvq9430599 2.840.1.231146.3.579.2.42508-32-0591Pgeital7007761 2.16.840.1.564604.3.579.2.76771-94-6923Mncstho3963478 2.0.1.616760.3.579.2.66311-00-9607Fqrjryx5429662 2.840.1.301665.3.579.2.27475-13-9089Xdkhgnr4035213 2.840.1.855554.3.579.2.28769-67-6614Tuhfwpj0817907 2.0.1.155146.3.579.2.80929-07-3393Xrksvdd7612614 2..1.134915.3.579.2.15184-12-4460Yjjjjvv29826475 2..1.041153.3.579.2.230054-73-1824Jmecgwp87464631 2..1.528719.3.579.2.642235-20-0625Nnqkiqw16174706 2..1.424820.3.579.2.342083-90-1588Sfrxtfm0175616 2..1.908223.3.579.2.588294-65-6338Voikmwd8775610 2..1.318871.3.579.2.461138-52-3356Nkduhws4051067 2..1.287666.3.579.2.443617-89-7797Jwudyyc2678171 2..1.801164.3.579.2.049617-76-9787Gqdwjkz1954733 2.0.1.538730.3.579.2.261105-76-2456Dfdfofl7623733 2.0.1.563860.3.579.2.891041-15-7748Tuseqvj19146500 2.16.840.1.278589.3.579.2.36811-81-9101Zbewzbz71821502 2.16.840.1.199198.3.579.2.75898-96-7596Myynado319709933 2.16.840.1.896320.3.579.2.52920-20-2233Fdxgseu296716075 2.16.840.1.193234.3.579.2.29037-95-7841Zeomlen423229978 2.16.840.1.973398.3.579.2.13326-46-3134Nfttgyi361177981 2.16.840.1.437614.3.579.2.72920-35-7817Cheffvr215799386 2.840.1.747477.3.579.2.52962-70-6293Fiwaxng592458453 2.16.840.1.037368.3.579.2.51578-47-7973Ouzpatj455267692 2.16.840.1.300817.3.579.2.53889-52-2030Fawcfmc687877516 2.16.840.1.032358.3.579.2.17125-50-1725Vjieemj391019110 2.840.1.187125.3.579.2.58552-67-6975Tmcpmhn803203282 2.16.840.1.465345.3.579.2.57919-95-5854Xehfych169344250 2.16840.1.205908.3.579.2.196 [id number] 1960Private Health [id number] 2.16.840.1.169774.19 [id number] [id number] [id number] 1xn4wwy3-3c3b-707q-7588-0zw99044zyatZxqovvqJuxwxew Auto/[id number] 761y7367-4a4i-4wc2-2838-y76d2j0ntu47 Social History DateTypeDetailFacilityStart: 02-17-2014 End: 11-51-1221Jcstryc smoking status NHISCurrent every day smokerUK [facility]: 53-25-9384Azqyhkm of tobacco useCigarette SmokerUK [facility]: 02-17-2014 End: 60-09-2711Xprfcyuijd smoked current (pack per day) - ReportedUK Healthcare: 72-76-0427Mvntqys intakeCurrent drinker of alcohol (finding)[facility]: 33-95-8066Cadpwhr CommentRareMMemorial Health System: 06-39-7530Wwp Assigned At BirthNot on fileHugo, KYExposure to SARS-CoV-2 (event)Unable to assessPremier Health Miami Valley Hospital Northart: 85-65-1808Nuqveyz smoking statusSmoker (finding)[facility] start: 07-10-2023 End: 60-52-4192Kna Assigned At BirthFemaleExecutive [facility]rology [facility] start: 11-15-2022 End: 59-91-8694Xqpjvwv smoking statusHeavy tobacco smoker (finding)[facility] Hospitaltart: 07-10-2023 End: 39-92-5002Oyguwki use and exposureSmokeless tobacco non-userNOMS Healthcare Start: 07-10-2023 End: 04-69-8715Eyvocqn intakeLifetime non-drinker (finding)[facility] HealthcareWithin the last year, have you been afraid of your partner or ex-partner?NoNOMS HealthcareDo you belong to any clubs or organizations such as roman catholic groups, unions, [...] drinks on 1 occasion?Less than monthlyNOMS HealthcareStart: 64-66-0750Qlv hard is it for you to pay [...] pharmacy [SILS]RarelyNOMS HealthcareSexFemale (finding)[facility] Start: 85-33-5169Aji Assigned At [facility]N [facility] HospitalNEGATED: Highlighted [facility] Medical Equipment Procedure CodeEquipment CodeEquipment Original TextEquipment IdentifierDates [id number]: 17-82-5971FVA TO TEST BLOOD SUGAR 4 TIMES [id number]: 07-07-2024 Functional Status AtvlObcrxpffeoHoxcagNlgxgybj81-41-1958Oddcuyl Health Questionnaire 2 item (PHQ- 2) [Reported][facility] HospitalUsvvrwnxtn46-93-0007Kjjvici falling or staying asleep, or sleeping too muchNot at all 01/26/2025 4:13 PM EDT Mychart, Generic Not at all [facility] HospitalJvxkmlyyoz84-24-7198Yenciaj tired or having little energyNot at all 01/26/2025 4:13 PM EDT Mychart, Generic Not at [facility] SystemNewsjzcjce88-84-4879Zsit appetite or overeatingNot at all 01/26/2025 4:13 PM EDT Mychart, Generic Not at [facility] SystemEnnnxypuxm88-14-9503Tndcogf bad about yourself-or that you are a failure or have let yourself or your family downNot at all 01/26/2025 4:13 PM EDT Mychart, Generic Not at [facility] SystemMqioguhezk80-68-6446Qoxhdnx concentrating on things, such as reading the newspaper or watching televisionNot at all 01/26/2025 4:13 PM EDT Mychart, Generic Not at [facility] SystemOogesjjgry15-48-7056 Moving or speaking so slowly that other people could have noticed. Or the opposite - being so fidgety or restless that you have been moving around a lot more than usualNot at all 01/26/2025 4:13 PM EDT Mychart, Generic Not at [facility] SystemMrhfmfzlyy14-88-1713Wqkhoami that you would be better off , or of hurting yourself in some wayNot at all 01/26/2025 4:13 PM EDT Mychart, Generic Not at [facility] SystemKlnhqharhv36-40-5392Qpdpk score [AUDIT-C]1 08/26/2024 6:13 PM EST Mychart, GenericJefferson Memorial HospitalZfrayzudyk46-14-5935Xdq often do you have a drink containing alcohol?Monthly or less 08/26/2024 6:13 PM EST Mychart, Generic Monthly or lessJefferson Memorial HospitalOvyerftvls99-86-0834Wzf many standard drinks containing alcohol do you have on a typical day?1 or 2 08/26/2024 6:13 PM EST Mychart, Generic 1 or 2NOMS Zrsdbvcemy71-50-5709Jct often do you have 6 or more drinks on 1 occasion?Never 08/26/2024 6:13 PM EST Mychart, Generic [facility] 55-88-7379Qtzutolxzq StatusN/AExec[facility] of [facility]07-11-2024How difficult have these problems made it for you to do your work, take care of things at home, or get along with other people?Not difficult at all 01/17/2024 10:08 AM Marilyn Dunbar MA Not difficult at allJefferson Memorial HospitalNncshxzdlh93-78-2112Qcnjmob Health Questionnaire 2 item (PHQ-2) [Reported][facility] Memorial HospitalIcrusxpdiu83-57-3911Pjzpuwm Health Questionnaire 2 item (PHQ-2) [Reported][facility] HospitalYbcmapgxdb42-18-4735Ahuebfouhw StatusN/AExec[facility]08-01-2022Functional StatusN/AExec[facility] Clinical Notes 01-19-2022 to 04-06-2025 Note Date & SqolFgzmBsbjnxmb58-15-6832 Evaluation note* Diagnosis Onset Date Resolution Status [...] use ofacuteOctober 2024 5:50pmVenous insufficiencyacuteOctober 2024 5:50pm [facility] Work Phone: 1(955) 226-511307-30-2025 NotePlease let her know her ECHO showed some improvement in the left side wall thickness, it was severely enlarged, now it is moderate. Important for good BP control to continue to improve this. Everything else looks good. Follow-up as planned in 6 months. Thanks![facility]07-24-2025 History of Present illness Narrative* Rain [...] 96, on lantus 58 units bid, lispro 4-88-16dtlyc plus ISS, Trulicity 4.5 mg weekly. meter give us error during download IM 03/2022 follow up visit on 03/14/2022, A1c in the office 9.4, bg 142, on lantus 58 units bid, lispro 5-97-01xared plus ISS, Trulicity 4.5 mg weekly. 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 ([facility]) Lower extremity edema 09/17/2023 Mixed hyperlipidemia Morbid (severe) obesity due to excess calories ([facility]) Obstructive sleep apnea 07/10/2023 PAD (peripheral artery disease) 09/17/2023 Pancreatitis ([facility]) 09/17/2023 Pneumonia 09/17/2023 Proteinuria, unspecified Pulmonary [...] D deficiency Primary hypertension Insulin long-term use ([facility]) Hyperlipemia, mixed Microalbuminuria Class 3 severe obesity due to excess calories with serious comorbidity and body mass index (BMI) of50.0 to 59.9 in adult ([facility]) Diet and exercise reviewed with the patient Follow up in about 4 months (around 06/01/2025). 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 * Mckayla Blas [...] 25 mg, Oral, 2 times daily HYDROcodone-acetaminophen ([place]) 5-325 MG tablet 1 tablet, 3 times [...] Hyperlipidemia 09/17/2023 Hypertension 07/10/2023 Insomnia 09/17/2023 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 ([facility]) Lower extremity edema 09/17/2023 Mixed hyperlipidemia Morbid (severe) obesity due to excess calories ([facility]) Obstructive sleep apnea 07/10/2023 PAD (peripheral artery disease) 09/17/2023 Pancreatitis ([facility]) 09/17/2023 Pneumonia 09/17/2023 Proteinuria, unspecified Pulmonary [...] [facility]ICAL [facility]) Current meds: albuterol, duoneb, 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 Hypertension Please check [...] tablet Pulmonary hypertension (HCC) Has seen [facility] Cardiology Hyperlipidemia On statin therapy Check labs [...] Morbid (severe) obesity due to excess calories ([facility]) Discussed with patient their BMI [...] Problem(s): Pulmonary hypertension (HCC) Has seen [facility] Cardiology * Mckayla Blas NP - 01/26/2025 [...] on a yearly basis documented in this encounterJefferson Memorial HospitalMoqkgezyzt11-57-2044 Instructions* Patient Instructions* Mckayla Blas NP - 01/26/2025 6:00 PM EDT Please call the [facility] to schedule your mammogram: [phone]- ext [phone] documented in this encounterJefferson Memorial HospitalGttgbeaxvc89-85-2509 NoteCardiovascular Medicine [facility] SUBJECTIVE Chief Complaint Patient presents with Congestive Heart Failure Hypertension Hyperlipidemia Mitzi Macias is a 54 y.o. female here for follow-up. PMHx: HFpEF, HTN, HLD, DM, longstanding heavy smoker, COPD, DANIEL, morbid obesity HPI 01/06/2025 Since last seen she was admitted to [facility] for AMS on 12/05/2024. She was [...] complication, with long-term current use of insulin ([facility]/HCC) Unilateral primary osteoarthritis, right hip Vaginal yeast infection Venous insufficiency Bad odor of urine Critical limb ischemia of right lower extremity ([facility]/HCC) Hyperpigmentation of skin 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 2 diabetes mellitus ([facility]/HCC) Myelolipoma of adrenal gland Venous ulcer of right leg ([facility]/HCC) Chronic diastolic heart failure ([facility]/HCC) Antibiotic-induced yeast infection Cellulitis of left lower extremity Cigarette nicotine dependence without complication Fever Idiopathic chronic venous hypertension of both lower extremities with ulcer ([facility]) 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 current use of inhaled steroid Vitamin D deficiency, unspecified Vitamin deficiency Past Medical History: Diagnosis Date COPD (chronic obstructive pulmonary disease) ([facility]) Diabetes mellitus ([facility]) Hyperlipidemia Hypertension Sleep apnea [...] , Rfl: ergocalciferol (Vitamin D-2) 1.25 MG (60906 Units) capsule, Take 1.25 mg by mouth., [...] and at bedtime., Disp: , Rfl: HYDROcodone-acetaminophen ([place]) 5-325 mg tablet, TAKE 1 TABLET BY MOUTH THREE TIMES A DAY NEEDED FOR PAIN MUST LAST 30 DAYS, Disp: , Rfl: insulin aspart (NovoLOG) 100 unit/mL (3 mL) injection pen, Novolog Flexpen U-100 Insulin aspart 100 unit/mL (3 mL) subcutaneous, Disp: , Rfl: insulin glargine (Lantus Solostar U-100 Insulin) 100 unit/mL (3 mL) injection pen (more content not included)...[facility]07-01-2025 NotePatient is here today for a [...] weight gain. Cardiovascular: Positive for leg swelling.[facility] 12-09-2024 History of Present illness Narrative* [...] bad light. She was ultimately taken to [facility] ER, no tox screen was done [...] 25 mg, Oral, 2 times daily HYDROcodone-acetaminophen ([place]) 5-325 MG tablet 1 tablet, 3 times [...] CT Albuminuria 09/17/2023 Angiomyolipoma Anxiety and depression ([facility]) 07/10/2023 Asthma 07/10/2023 Body mass index (BMI) 50.0-59.9, adult ([facility]) Cellulitis of left lower extremity Cervical cancer ([facility]) 09/17/2023 Chronic pain of both knees 09/17/2023 COPD (chronic obstructive pulmonary disease) ([facility]) 07/10/2023 COPD exacerbation ([facility]) 09/17/2023 Decreased functional mobility 09/17/2023 Diabetic neuropathy ([facility]) 07/10/2023 Dietary counseling and surveillance Edema 07/10/2023 Elevated sed rate Elevated WBC count Essential (primary) hypertension ([facility]) GERD (gastroesophageal reflux disease) 09/17/2023 Hyperlipidemia ([facility]) 09/17/2023 Hypertension ([facility]) 07/10/2023 Insomnia 09/17/2023 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 ([facility]) Lower extremity edema 09/17/2023 Mixed hyperlipidemia ([facility]) Morbid (severe) obesity due to excess calories ([facility]) Obstructive sleep apnea 07/10/2023 PAD (peripheral artery disease) ([facility]) 09/17/2023 Pancreatitis 09/17/2023 Pneumonia 09/17/2023 Proteinuria, unspecified Pulmonary hypertension ([facility]) 09/17/2023 Radiculopathy, lumbar region 09/17/2023 Tobacco user 09/17/2023 Type 2 diabetes mellitus with complication, with long-term current use of insulin ([facility]) 07/10/2023 Unilateral primary osteoarthritis, [...] Problem List Items Addressed This Visit Hypertension ([facility]) Please check blood pressure daily and record DASH diet Limit caffeine Take medication as directed Contact office if chest pain, pressure, dizziness, shortness of breath, swelling legs Recommend slow position changes Current meds: hydralazine, lisinopril, Type 2 diabetes mellitus with complication, with long-term current use of insulin ([facility]) Check blood sugars daily, [...] secondary to her steroids Anxiety and depression ([facility]) Current meds: elavil, duloxtine, COPD exacerbation ([facility]) Recent ER visit for unresponsiveness , found to have fever and elevated WBC Sent home with steroids and atb Breathing is better and she feels back to her normal baseline Does have home O2, she is not wearing this today Pulmonary hypertension (CMS/HCC) Has seen [facility] Cardiology Morbid (severe) obesity due to excess calories ([facility]) Discussed with patient their [...] 7:24 AM EDTAssociated Problem(s): Anxiety and depression ([facility]) Current meds: elavil, duloxtine, * Mckayla Blas NP - 12/09/2024 7:24 AM EDTAssociated Problem(s): Type 2 diabetes mellitus with complication, with long-term current use of insulin ([facility]) Check blood sugars daily, [...] Problem(s): Pulmonary hypertension (CMS/HCC) Has seen [facility] Cardiology * Mckayla Blas NP - 12/09/2024 [...] not wearing this today documented in this encounterJefferson Memorial [id number] Instructions* Patient Instructions* Mckayla Blas NP - 12/09/2024 10:00 AM EDT Keep appt with wound care today Keep fu with me, sooner if needed documented in this encounterJefferson Memorial [id number] History of Present illness Narrative* Mckayla Blas [...] PM EDTAssociated Problem(s): PAD (peripheral artery disease) ([facility]) Asa, statin Quit smoking [...] 25 mg, Oral, 2 times daily HYDROcodone-acetaminophen ([place]) 5-325 MG tablet 1 tablet, 3 times [...] CT Albuminuria 09/17/2023 Angiomyolipoma Anxiety and depression ([facility]) 07/10/2023 Asthma 07/10/2023 Body mass index (BMI) 50.0-59.9, adult ([facility]) Cellulitis of left lower extremity Cervical cancer ([facility]) 09/17/2023 Chronic pain of both knees 09/17/2023 COPD (chronic obstructive pulmonary disease) ([facility]) 07/10/2023 COPD exacerbation ([facility]) 09/17/2023 Decreased functional mobility 09/17/2023 Diabetic neuropathy ([facility]) 07/10/2023 Dietary counseling and surveillance Edema 07/10/2023 Elevated sed rate Elevated WBC count Essential (primary) hypertension ([facility]) GERD (gastroesophageal reflux disease) 09/17/2023 Hyperlipidemia ([facility]) 09/17/2023 Hypertension ([facility]) 07/10/2023 Insomnia 09/17/2023 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 ([facility]) Lower extremity edema 09/17/2023 Mixed hyperlipidemia ([facility]) Morbid (severe) obesity due to excess calories ([facility]) Obstructive sleep apnea 07/10/2023 PAD (peripheral artery disease) ([facility]) 09/17/2023 Pancreatitis 09/17/2023 Pneumonia 09/17/2023 Proteinuria, unspecified Pulmonary hypertension ([facility]) 09/17/2023 Radiculopathy, lumbar region 09/17/2023 Tobacco user 09/17/2023 Type 2 diabetes mellitus with complication, with long-term current use of insulin ([facility]) 07/10/2023 Unilateral primary osteoarthritis, [...] List Items Addressed This Visit Diabetic neuropathy ([facility]) - Primary Continue with cintia hudson mgmt is prescribing OARRS reviewed Fu in 3 months Goal: tighter glucose control, this has been improving, latest A1c is 7.4%!!! Hypertension ([facility]) Please check blood pressure daily and record DASH diet Limit caffeine Take medication as directed Contact office if chest pain, pressure, dizziness, shortness of breath, swelling legs Recommend slow position changes Current meds: hydralazine, lisinopril, Relevant Medications hydrALAZINE (Apresoline) 25 MG tablet lisinopril 20 MG tablet Type 2 diabetes mellitus with complication, with long-term current use of insulin ([facility]) Check blood sugars daily, [...] 81 MG chewable tablet Anxiety and depression ([facility]) Current meds: elavil, duloxtine, Relevant Medications [...] due to excess calories ([facility]) Discussed with patient their BMI [...] mounjaro for DM Chronic diastolic heart failure ([facility]) Current meds; asa, farxiga, lasix, hydralazine, lisinopril, Follows with cardilogy Reviewed 08/02 notes Cigarette nicotine dependence without complication Is currently using chantix, and is doing well, less desire, smoking less Vitamin D deficiency, unspecified Relevant Medications ergocalciferol (Vitamin D2) 1.25 MG (15772 UT) capsule Gastro-esophageal reflux disease without esophagitis [...] latest A1c is 7.4%!!! documented in this [facility]04-21-2025 Instructions* Patient Instructions* Mckayla Blas NP - 10/27/2024 2:00 PM EDT No dose changes in meds You will be due for mammogram I will send order to [facility], they should call you to schedule If no call, please call [phone] ext [phone] documented in this encounterJefferson Memorial [id number] History of Present illness Narrative* Rain Souza [...] 96, on lantus 58 units bid, lispro 3-50-49efsym plus ISS, Trulicity 4.5 mg weekly. meter give us error during download IM 03/2022 follow up visit on 03/14/2022, A1c in the office 9.4, bg 142, on lantus 58 units bid, lispro 4-85-78wpwxm plus ISS, Trulicity 4.5 mg weekly. lab [...] or chew. ergocalciferol (Vitamin D2) 1.25 MG (01719 UT) capsule TAKE 1 CAPSULE BY MOUTH [...] 25 mg, Oral, 2 times daily HYDROcodone-acetaminophen ([place]) 5-325 MG tablet 1 tablet, 3 times [...] CT Albuminuria 09/17/2023 Angiomyolipoma Anxiety and depression ([facility]) 07/10/2023 Asthma ([facility]) 07/10/2023 Body mass index (BMI) 50.0-59.9, adult ([facility]) Cellulitis of left lower extremity Cervical cancer ([facility]) 09/17/2023 Chronic pain of both knees 09/17/2023 [facility] 07/10/2023 COPD exacerbation ([facility]) 09/17/2023 Decreased functional mobility 09/17/2023 Diabetic neuropathy ([facility]) 07/10/2023 Dietary counseling and surveillance Edema 07/10/2023 Elevated sed rate Elevated WBC count Essential (primary) hypertension ([facility]) GERD (gastroesophageal reflux disease) 09/17/2023 Hyperlipidemia ([facility]) 09/17/2023 Hypertension ([facility]) 07/10/2023 Insomnia 09/17/2023 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 ([facility]) Lower extremity edema 09/17/2023 Mixed hyperlipidemia ([facility]) Morbid (severe) obesity due to excess calories ([facility]) Obstructive sleep apnea 07/10/2023 PAD (peripheral artery disease) ([facility]) 09/17/2023 Pancreatitis 09/17/2023 Pneumonia 09/17/2023 Proteinuria, unspecified Pulmonary hypertension ([facility]) 09/17/2023 Radiculopathy, lumbar region 09/17/2023 Tobacco user 09/17/2023 Type 2 diabetes mellitus with complication, with long-term current use of insulin ([facility]) 07/10/2023 Unilateral primary osteoarthritis, [...] hyperglycemia, with long-term current use of insulin ([facility]) - POCT glucose manually [...] 4 months (around 02/07/2025). documented in this encounterJefferson Memorial [id number] History of Present illness Narrative* Mckayla Blas [...] or chew. ergocalciferol (Vitamin D2) 1.25 MG (70481 UT) capsule TAKE 1 CAPSULE BY MOUTH [...] 25 mg, Oral, 2 times daily HYDROcodone-acetaminophen ([place]) 5-325 MG tablet 1 tablet, 3 times [...] CT Albuminuria 09/17/2023 Angiomyolipoma Anxiety and depression ([facility]) 07/10/2023 Asthma ([facility]) 07/10/2023 Body mass index (BMI) 50.0-59.9, adult ([facility]) Cellulitis of left lower extremity Cervical cancer ([facility]) 09/17/2023 Chronic pain of both knees 09/17/2023 COPD (chronic obstructive pulmonary disease) ([facility]) 07/10/2023 COPD exacerbation ([facility]) 09/17/2023 Decreased functional mobility 09/17/2023 Diabetic neuropathy ([facility]) 07/10/2023 Dietary counseling and surveillance Edema 07/10/2023 Elevated sed rate Elevated WBC count Essential (primary) hypertension ([facility]) GERD (gastroesophageal reflux disease) 09/17/2023 Hyperlipidemia ([facility]) 09/17/2023 Hypertension ([facility]) 07/10/2023 Insomnia 09/17/2023 halfway (current) use of insulin ([facility]) Lower extremity edema 09/17/2023 Mixed hyperlipidemia ([facility]) Morbid (severe) obesity due to excess calories ([facility]) Obstructive sleep apnea 07/10/2023 PAD (peripheral artery disease) ([facility]) 09/17/2023 Pancreatitis 09/17/2023 Pneumonia 09/17/2023 Proteinuria, unspecified Pulmonary hypertension ([facility]) 09/17/2023 Radiculopathy, lumbar region 09/17/2023 Tobacco user 09/17/2023 Type 2 diabetes mellitus with complication, with long-term current use of insulin ([facility]) 07/10/2023 Unilateral primary osteoarthritis, [...] List Items Addressed This Visit Diabetic neuropathy ([facility]) Continue with cintia hudson is prescribing OARRS reviewed Fu in 3 months Goal: tighter glucose control Hypertension ([facility]) Please check blood pressure [...] complication, with long-term current use of insulin ([facility]) Check blood sugars daily, [...] Uric acid Venous ulcer of right leg ([facility]) Continue with wound for treatment Had recent [...] Morbid (severe) obesity due to excess calories ([facility]) Discussed with patient their [...] DM Body mass index (BMI) 50.0-59.9, adult ([facility]) Chronic diastolic heart failure (CMS/HCC) Current meds; [...] complication, with long-term current use of insulin ([facility]) Check blood sugars daily, [...] Morbid (severe) obesity due to excess calories ([facility]) Discussed with patient their [...] AM ESTAssociated Problem(s): Chronic diastolic heart failure ([facility]) Current meds; asa, farxiga, lasix, hydralazine, lisinopril, Follows with cardilogy Reviewed 08/02 notes * Mckayla Blas NP - 08/27/2024 7:31 AM ESTAssociated Problem(s): COPD (chronic obstructive pulmonary disease) ([facility]) Follows with verena Needs smoking cessation Current meds: duoneb, albuterol, daliresp, * Mckayla Blas NP - 08/27/2024 7:30 AM ESTAssociated Problem(s): Asthma ([facility]) Current meds: albuterol, duoneb, 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 * Mckayla Blas [...] Goal: tighter glucose control documented in this encounterJefferson Memorial [id number] NoteUT Cardiology - [facility] Subjective Mitzi Macias is a [...] Diagnosis Date COPD (chronic obstructive pulmonary disease) ([facility]) Diabetes mellitus ([facility]) Hyperlipidemia Hypertension Sleep apnea [...] , Rfl: ergocalciferol (Vitamin D-2) 1.25 MG (33549 Units) capsule, Take 1.25 mg by mouth., [...] and at bedtime., Disp: , Rfl: HYDROcodone-acetaminophen ([place]) 5-325 mg tablet, TAKE 1 TABLET BY [...] TWICE DAILY, Disp: (more content not included)...[facility]01-06-2025 History of Present illness Narrative* Mckayla [...] blood pressure and sugar control * Mckayla Bals NP - 07/14/2024 6:30 PM EST Images [...] or chew. ergocalciferol (Vitamin D2) 1.25 MG (29586 UT) capsule TAKE 1 CAPSULE BY MOUTH ONE TIME PER WEEK furosemide (LASIX) 40 mg, Oral, Daily furosemide (LASIX) 20 mg, Oral, Daily PRN, Take in the afternoon as needed hydrALAZINE (APRESOLINE) 25 mg, Oral, 2 times daily HYDROcodone-acetaminophen ([place]) 5-325 MG tablet 1 tablet, 3 times [...] CT Albuminuria 09/17/2023 Angiomyolipoma Anxiety and depression ([facility]) 07/10/2023 Asthma ([facility]) 07/10/2023 Body mass index (BMI) 50.0-59.9, adult ([facility]) Cellulitis of left lower extremity Cervical cancer ([facility]) 09/17/2023 Chronic pain of both knees 09/17/2023 COPD (chronic obstructive pulmonary disease) ([facility]) 07/10/2023 COPD exacerbation ([facility]) 09/17/2023 Decreased functional mobility 09/17/2023 Diabetic neuropathy ([facility]) 07/10/2023 Dietary counseling and surveillance Edema 07/10/2023 Elevated sed rate Elevated WBC count Essential (primary) hypertension ([facility]) GERD (gastroesophageal reflux disease) 09/17/2023 Hyperlipidemia ([facility]) 09/17/2023 Hypertension ([facility]) 07/10/2023 Insomnia 09/17/2023 halfway (current) use of insulin ([facility]) Lower extremity edema 09/17/2023 Mixed hyperlipidemia ([facility]) Morbid (severe) obesity due to excess calories ([facility]) Obstructive sleep apnea 07/10/2023 PAD (peripheral artery disease) ([facility]) 09/17/2023 Pancreatitis 09/17/2023 Pneumonia 09/17/2023 Proteinuria, unspecified Pulmonary hypertension ([facility]) 09/17/2023 Radiculopathy, lumbar region 09/17/2023 Tobacco user 09/17/2023 Type 2 diabetes mellitus with complication, with long-term current use of insulin ([facility]) 07/10/2023 Unilateral primary osteoarthritis, [...] List Items Addressed This Visit Diabetic neuropathy ([facility]) Continue with tristan [place]AST reviewed Fu in 3 months COPD (chronic obstructive pulmonary disease) ([facility]) Stable at this time, no changes in meds Encouraged smoking cessation Cont with dr Yañez Hypertension ([facility]) - Primary Please check blood pressure daily and record DASH diet Limit caffeine Take medication as directed Contact office if chest pain, pressure, dizziness, shortness of breath, swelling legs Recommend slow position changes Current meds: hydralazine, lisinopril, Type 2 diabetes mellitus with complication, with long-term current use of insulin ([facility]) Check blood sugars daily, [...] Critical limb ischemia of right lower extremity ([facility]) Saw vascular, does have narrowing in arteries in legs, and thus the wounds not healing At this point they strongly urge to quit smoking or risk limb amputation Cont asa and statin Also good blood pressure and sugar control Venous ulcer of right leg ([facility]) Encounter for smoking cessation counseling Relevant [...] complication, with long-term current use of insulin ([facility]) Check blood sugars daily, [...] Fu in 3 months documented in this encounterJefferson Memorial [id number] Hospital Discharge instructions Patient Education 06/11/2024 10:44:08 [...] require a prescription. You can also purchase lvqn-pyn-favdjiz medicines. Medicines may have nicotine in them [...] and encouragement. Call telephone quitlines, such as 6-344-AXUP-NOW, reach out to support groups, or work [...] provider. Document Revised: 06/16/2022 Document Reviewed: 06/16/2022 [employer] Patient Education 2023 [employer]. 06/11/2024 10:39:22 Dietary Guidelines to Help Prevent [...] include: ?8 oz (237 mL) of milk, zaylcoa-pqslfudmwtwo-cilbe milk, and calcium- fortifiedfruit juice. Calcium-fortified means [...] ?Spinach (cooked), rhubarb, beets, sweet potatoes, and Mozambican chard. ?Peanuts. ?Potato chips, canadian fries, and baked potatoes with skin on. ?Nuts and nut products. ?Chocolate. If you regularly take a diuretic medicine, make sure to eat at least 1 or 2 servings of fruits or vegetables that are high in potassium each day. These include: ?Avocado. ?Banana. ?[place], prune, carrot, or tomato juice. ?Baked potato. [...] magnesium, fish oil, or vitamin B6. Take xqck-hri-zalaoif and prescription medicines only as told by [...] Casseroles. Pizza. Lasagna. Frozen meals. Potato chips. Albanian fries. The items listed above may not [...] provider. Document Revised: 10/05/2022 Document Reviewed: 10/05/2022 [employer] Patient Education 2023 [employer]. Follow Up Care 05/06/2024 08:24:56 With:REGLA PHIPPS, Elbert Joya, URL Address: [facility] [address] , [place] [address]- When: Unknown [facility] 12-04-2024 NotePatient Education Nephrology Dietary Guidelines [...] ? 8 oz (237 mL) of milk, iaszepz-udtrecmhvejg-lctov milk, and calcium- fortifiedfruit juice. Calcium-fortified means [...] Spinach (cooked), rhubarb, beets, sweet potatoes, and Mozambican chard. ? Peanuts. ? Potato chips, canadian fries, and baked potatoes with skin on. ? Nuts and nut products. ? Chocolate. ??? If you regularly take a diuretic medicine, make sure to eat at least 1 or 2 servings of fruits or vegetables that are high in potassium each day. These include: ? Avocado. ? Banana. ? [place], prune, carrot, or tomato juice. ? Baked [...] fish oil, or vitamin B6. ??? Take qagt-svr-tbrqjzu and prescription medicines only as told by your health (more content not included)...[facility]11-19-2024 History of Present illness Narrative* Rain [...] 96, on lantus 58 units bid, lispro 1-43-83wgepx plus ISS, Trulicity 4.5 mg weekly. meter give us error during download IM 03/2022 follow up visit on 03/14/2022, A1c in the office 9.4, bg 142, on lantus 58 units bid, lispro 2-14-78umnjx plus ISS, Trulicity 4.5 mg weekly. lab [...] or chew. ergocalciferol (Vitamin D2) 1.25 MG (87303 UT) capsule TAKE 1 CAPSULE BY MOUTH ONE TIME PER WEEK furosemide (LASIX) 20 mg, Oral, Daily PRN, Take in the afternoon as needed furosemide (LASIX) 40 mg, Oral, Daily Glucose Blood (ACCU-CHEK JAQUI PLUS ) 4 times daily hydrALAZINE (APRESOLINE) 25 mg, Oral, 2 times daily HYDROcodone-acetaminophen ([place]) 5-325 MG tablet 1 tablet, 3 times [...] X 42 tablet therapy [facility] ALLERGIES: No Known Allergies Past Medical History: Diagnosis Date Abnormal chest CT Albuminuria 09/17/2023 Angiomyolipoma Anxiety and depression ([facility]) 07/10/2023 Asthma ([facility]) 07/10/2023 Body mass index (BMI) 50.0-59.9, adult ([facility]) Cellulitis of left lower extremity Cervical cancer ([facility]) 09/17/2023 Chronic pain of both knees 09/17/2023 COPD (chronic obstructive pulmonary disease) ([facility]) 07/10/2023 COPD exacerbation ([facility]) 09/17/2023 Decreased functional mobility 09/17/2023 Diabetic neuropathy ([facility]) 07/10/2023 Dietary counseling and surveillance Edema 07/10/2023 Elevated sed rate Elevated WBC count GERD (gastroesophageal reflux disease) 09/17/2023 Hyperlipidemia ([facility]) 09/17/2023 Hypertension ([facility]) 07/10/2023 Insomnia 09/17/2023 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 ([facility]) Lower extremity edema 09/17/2023 Morbid (severe) obesity due to excess calories ([facility]) Obstructive sleep apnea 07/10/2023 PAD (peripheral artery disease) ([facility]) 09/17/2023 Pancreatitis 09/17/2023 Pneumonia 09/17/2023 Proteinuria, unspecified Pulmonary hypertension ([facility]) 09/17/2023 Radiculopathy, lumbar region 09/17/2023 Tobacco user 09/17/2023 Type 2 diabetes mellitus with complication, with long-term current use of insulin ([facility]) 07/10/2023 Unilateral primary osteoarthritis, [...] hyperglycemia, with long-term current use of insulin ([facility]) - POCT glucose manually resulted - POCT glycosylated hemoglobin (Hb A1C) docked device We will continue with Lantus 58, lispro 02/16/12 according to meal size, Mounjaro 15 mg once weekly, Farxiga 5 mg once a day Encounter for dietary consultation Vitamin D deficiency Primary hypertension ([facility]) To follow with her PCP Insulin long-term use ([facility]) Hyperlipemia, mixed ([facility]) Continue with Zocor 10 mg once daily Microalbuminuria Class 3 severe obesity due to excess calories with serious comorbidity and body mass index (BMI) of50.0 to 59.9 in adult ([facility]) Diet and exercise reviewed with the patient Follow up in about 3 months (around 08/27/2024). documented in this encounterJefferson Memorial [id number] History of Present illness Narrative* Mckayla Blas NP - 04/14/2024 11:45 AM EDTAssociated Problem(s): Hyperpigmentation of skin Will try cerevue ointment to see if helps * Mckayla Blas NP - 04/14/2024 11:43 AM EDTAssociated Problem(s): Tobacco user Urged to quit * Mckayla Blas NP - 04/14/2024 11:43 AM EDTAssociated Problem(s): Type 2 diabetes mellitus with complication, with long-term current use of insulin ([facility]) Check blood sugars daily, [...] - 04/14/2024 11:42 AM EDTAssociated Problem(s): Hypertension ([facility]) Stable on current meds Refill meds * Mckayla Blas NP - 04/14/2024 11:42 AM EDTAssociated Problem(s): COPD (chronic obstructive pulmonary disease) ([facility]) Stable at this time, [...] mg/dl. An TILA inhibitor /angiotensin II receptor enu is being taken. She does not see a nuclear officer.Eye exam is not current. Hypertension This is [...] or chew. ergocalciferol (Vitamin D2) 1.25 MG (90791 UT) capsule TAKE 1 CAPSULE BY MOUTH ONE TIME PER WEEK furosemide (LASIX) 20 mg, Oral, Daily PRN, Take in the afternoon as needed furosemide (LASIX) 40 mg, Oral, Daily Glucose Blood (ACCU-CHEK JAQUI PLUS ) 4 times daily HumaLOG KWIKPEN 100 UNIT/ML injection Subcutaneous hydrALAZINE (APRESOLINE) 25 mg, Oral, 2 times daily HYDROcodone-acetaminophen ([place]) 5-325 MG tablet 1 tablet, 3 times [...] X 42 tablet therapy [facility] ALLERGIES: No Known [...] Angiomyolipoma Anxiety and depression ([facility]) 07/10/2023 Asthma ([facility]) 07/10/2023 Cellulitis of left lower extremity Cervical cancer ([facility]) 09/17/2023 Chronic pain of both knees 09/17/2023 COPD (chronic obstructive pulmonary disease) ([facility]) 07/10/2023 COPD exacerbation ([facility]) 09/17/2023 Decreased functional mobility 09/17/2023 Diabetic neuropathy ([facility]) 07/10/2023 Edema 07/10/2023 Elevated sed rate Elevated WBC count GERD (gastroesophageal reflux disease) 09/17/2023 Hyperlipidemia ([facility]) 09/17/2023 Hypertension ([facility]) 07/10/2023 Insomnia 09/17/2023 Lower extremity edema 09/17/2023 Obstructive sleep apnea 07/10/2023 PAD (peripheral artery disease) ([facility]) 09/17/2023 Pancreatitis 09/17/2023 Pneumonia 09/17/2023 Pulmonary hypertension ([facility]) 09/17/2023 Radiculopathy, lumbar region 09/17/2023 Tobacco user 09/17/2023 Type 2 diabetes mellitus with complication, with long-term current use of insulin ([facility]) 07/10/2023 Unilateral primary osteoarthritis, [...] List Items Addressed This Visit Diabetic neuropathy ([facility]) Continue with tristan EAST reviewed Fu in 3 months Relevant Medications pregabalin (Lyrica) 300 MG capsule COPD (chronic obstructive pulmonary disease) ([facility]) - Primary Stable at this time, no changes in meds Encouraged smoking cessation Cont with dr Yañez Hypertension ([facility]) Stable on current meds Refill meds Relevant Medications hydrALAZINE (Apresoline) 25 MG tablet lisinopril 20 MG tablet Type 2 diabetes mellitus with complication, with long-term current use of insulin ([facility]) Check blood sugars daily, [...] 81 MG chewable tablet Anxiety and depression ([facility]) Relevant Medications DULoxetine (Cymbalta) [address] capsule Bilateral lower extremity edema Stable on current meds Insomnia Relevant Medications amitriptyline (Elavil) 25 MG tablet Tobacco user Urged to quit Non-seasonal allergic rhinitis Relevant Medications cetirizine (ZyrTEC) 10 MG tablet Hyperpigmentation of skin Will try cerevue ointment to see if helps Other Visit Diagnoses Type 2 diabetes mellitus with unspecified complications ([facility]) Relevant Medications dapagliflozin (Farxiga) 10 MG Gastro-esophageal reflux disease without esophagitis Relevant Medications omeprazole (PriLOSEC) [address] capsule Edema, unspecified Relevant Medications potassium chloride ER (Micro-K) 10 MEQ ER capsule Edema Relevant Medications potassium chloride ER (Micro-K) 10 MEQ ER capsule Chronic obstructive pulmonary disease, unspecified ([facility]) Relevant Medications Roflumilast 500 MCG tablet documented in this encounterJefferson Memorial [id number] Hospital Discharge instructions Patient Education 11/15/2022 14:09:21 [...] include: ?8 oz (237 mL) of milk, hhxdnkk-lupjaepclngn-bikzh milk, and calcium- fortifiedfruit juice. Calcium-fortified means [...] ?Spinach (cooked), rhubarb, beets, sweet potatoes, and Mozambican chard. ?Peanuts. ?Potato chips, canadian fries, and baked potatoes with skin on. ?Nuts and nut products. ?Chocolate. If you regularly take a diuretic medicine, make sure to eat at least 1 or 2 servings of fruits or vegetables that are high in potassium each day. These include: ?Avocado. ?Banana. ?[place], prune, carrot, or tomato juice. ?Baked potato. [...] magnesium, fish oil, or vitamin B6. Take ghvs-uaa-koptolt and prescription medicines only as told by [...] Casseroles. Pizza. Lasagna. Frozen meals. Potato chips. Albanian fries. The items listed above may not [...] provider. Document Revised: 03/06/2022 Document Reviewed: 03/06/2022 [employer] Patient Education 2022 [employer]. Follow Up Care 02/06/2022 11:44:09 With:SILVIA HOWELL, GAVIOTA Webb, URL Address: [address] [place] [address] When: Unknown [facility] 02-16-2023 NoteCONSULTATION CONSULTATION DATE: 08/24/2022 HISTORY OF [...] We maintain her on pain medication with [place] 5/325 t.i.d., diclofenac 75 mg b.i.d. Her [...] her at this point. A refill for [place] 5/325 t.i.d. and diclofenac 75 mg b.i.d. will be sent to the pharmacy. Vitamin compliance and nutrition were discussed and enforced. I did highly encourage her to use exercise bands to increase the strength in her lower extremities. We will see her in three months' time, unless otherwise indicated, and patient agrees.[facility] [id number] NoteCONSULTATION CONSULTATION DATE: 05/11/2022 This 51-year-old female [...] 150. Medications include Lyrica 300 mg b.i.d., [place] 5/325 t.i.d., diclofenac 75 mg b.i.d. and [...] her medications today. We will maintain Lyrica, [place] and diclofenac at the set dose and frequency. We will follow-up in the clinic in three months' time. The patient is in agreement to this. Vitamin importance and nutrition were discussed.[facility] [id number] NoteCONSULTATION CONSULTATION DATE: 04/20/2022 HISTORY OF PRESENT [...] medications include Tylenol, Lyrica 300 mg b.i.d., [place] 5/325 t.i.d., amitriptyline, diclofenac and duloxetine. Patient's [...] will be followed up in the clinic.[facility] [id number] Evaluation note* Encounter Date Diagnosis Assessment Notes [...] to the DANIEL. Thrombocytopenia is unclear etiology. [facility] Other 08-15-2022 Evaluation note* Encounter Date [...] follow with Dr. Souza and Dr. Arauz. [facility] Other 08-01-2022 Hospital Discharge instructions Patient Education [...] fried and sweet foods. General instructions Take ouuq-tsh-tyhngjj and prescription medicines only as told by [...] 04/21/2010 Document Revised: 10/16/2019 Document Reviewed: 07/11/2018 [employer] Patient Education 2020 [employer]. Follow Up Care 01/05/2022 12:02:03 With:REGLA PHIPPS, Elbert Joya, URL Address: [facility] [address], [place] [address] [phone] When:Within 6 Month(s) Comments:w/ repeat CT A/P [facility] 07-14-2022 NoteCONSULTATION PROCEDURE DATE: 01/19/2022 PRE AND [...] today. Medications include Lyrica 300 mg b.i.d., [place] 5/325 t.i.d., diclofenac 75 mg b.i.d. and [...] in three months' time unless otherwise indicated. [facility] Signed and Approved by: GIL VALENZUELA . 01/27/2022 14:15:00[facility] Future Appointments Appointment Date:08/14/2022 09:15:00 AM Scheduled Provider:Elbert ARAUZ MD Location:[facility] Appointment Type:URO Office Visit [facility] evaluation + Plan note Future Appointments Appointment Date:04/22/2024 10:00:00 AM Scheduled Provider:GAVIOTA ADAMES PA-C Location:[facility] Appointment Type:URO Office Visit [facility] evaluation note* Diagnosis Type 2 diabetes mellitus with unspecified complications ([facility]) Edema, unspecified Edema documented in [...] skin Other dyschromia documented in this encounter [facility] [...] polyneuropathy associated with type 2 diabetes mellitus ([facility]) Chronic obstructive pulmonary disease, unspecified ([facility]) Pulmonary emphysema, unspecified emphysema type ([facility]) Bilateral lower extremity edema Tobacco user Tobacco use disorder Hyperpigmentation of skin Other dyschromia Type 2 diabetes mellitus with hyperglycemia, with long-term current use of insulin ([facility])- Primary Encounter for dietary consultation Vitamin D deficiency Primary hypertension ([facility]) Unspecified essential hypertension Insulin long-term use ([facility]) Encounter for long-term (current) use of insulin Hyperlipemia, mixed ([facility]) Mixed hyperlipidemia Microalbuminuria Proteinuria Class 3 severe obesity due to excess calories with serious comorbidity and body mass index (BMI) of50.0 to 59.9 in adult ([facility]) documented in this encounter [facility]* Diagnosis Hyperlipidemia, unspecified ([facility]) Bilateral lower extremity edema documented in this encounter [facility]* Diagnosis Vitamin D deficiency, unspecified documented in this encounter [facility]* Diagnosis Obstructive sleep apnea- Primary Obstructive sleep apnea (adult) (pediatric) Pulmonary emphysema, unspecified emphysema type ([facility]) Primary hypertension ([facility]) Unspecified essential hypertension Type 2 diabetes mellitus with complication, with long-term current use of insulin ([facility]) Anxiety and depression ([facility]) Bilateral lower extremity edema Pulmonary emphysema, unspecified emphysema type ([facility])- Primary Primary hypertension ([facility]) Unspecified essential hypertension Class 3 severe obesity with serious comorbidity and body mass index (BMI) of 50.0 to 59.9 in adult,unspecified obesity type ([facility]) Obstructive sleep apnea Obstructive sleep apnea (adult) (pediatric) Pulmonary hypertension ([facility]) Other chronic pulmonary heart diseases Tobacco user Tobacco use disorder Cardiomegaly Primary hypertension ([facility])- Primary Unspecified essential hypertension Gastroesophageal reflux disease, unspecified whether esophagitis present Type 2 diabetes mellitus with complication, with long-term current use of insulin ([facility]) Mixed hyperlipidemia ([facility]) Mixed hyperlipidemia Tobacco user Tobacco use disorder Encounter for screening mammogram for malignant neoplasm of breast Chronic obstructive pulmonary disease, unspecified ([facility]) Other specified chronic obstructive pulmonary disease ([facility]) Anxiety and depression ([facility]) Edema, unspecified Edema Hyperlipidemia, unspecified ([facility]) Diabetic polyneuropathy associated with [...] unspecified (CMS/HCC) Pulmonary emphysema, unspecified emphysema type ([facility]) Bilateral lower extremity edema Tobacco user Tobacco use disorder Hyperpigmentation of skin Other dyschromia Bilateral lower extremity edema documented in this encounter [facility] HealthcareEvaluation [facility]* Diagnosis Obstructive sleep apnea- Primary Obstructive sleep apnea (adult) (pediatric) Pulmonary emphysema, unspecified emphysema type ([facility]) Primary hypertension ([facility]) Unspecified essential hypertension Type 2 diabetes mellitus with complication, with long-term current use of insulin ([facility]) Anxiety and depression ([facility]) Bilateral lower extremity edema Pulmonary emphysema, unspecified emphysema type (CMS/HCC)- Primary Primary hypertension ([facility]) Unspecified essential hypertension Class 3 severe obesity with serious comorbidity and body mass index (BMI) of 50.0 to 59.9 in adult,unspecified obesity type ([facility]) Obstructive sleep apnea Obstructive sleep apnea (adult) (pediatric) Pulmonary hypertension ([facility]) Other chronic pulmonary heart diseases Tobacco user Tobacco use disorder Cardiomegaly Primary hypertension ([facility])- Primary Unspecified essential hypertension Gastroesophageal reflux disease, unspecified whether esophagitis present Type 2 diabetes mellitus with complication, with long-term current use of insulin ([facility]) Mixed hyperlipidemia ([facility]) Mixed hyperlipidemia Tobacco user Tobacco use disorder Encounter for screening mammogram for malignant neoplasm of breast Chronic obstructive pulmonary disease, unspecified ([facility]) Other specified chronic obstructive pulmonary disease ([facility]) Anxiety and depression ([facility]) Edema, unspecified Edema Hyperlipidemia, unspecified ([facility]) Diabetic polyneuropathy associated with type 2 diabetes mellitus ([facility]) Gout, unspecified cause, unspecified chronicity, unspecified site Non-seasonal allergic rhinitis, unspecified trigger Bilateral lower extremity edema COPD exacerbation ([facility]) Obstructive chronic bronchitis with exacerbation Pulmonary emphysema, unspecified emphysema type ([facility]) Venous insufficiency Unspecified venous (peripheral) insufficiency Candidiasis of breast COPD exacerbation ([facility])- Primary Obstructive chronic bronchitis with exacerbation Pulmonary hypertension ([facility]) Other chronic pulmonary heart diseases Class 3 severe obesity with serious comorbidity and body mass index (BMI) of 50.0 to 59.9 in adult,unspecified obesity type ([facility]) Encounter for subsequent annual wellness visit (AWV) in Medicare patient- Primary Type 2 diabetes mellitus with unspecified complications ([facility]) Pulmonary emphysema, unspecified emphysema type (CMS/HCC) Moderate persistent asthma without complication (CMS/HCC) Primary hypertension ([facility]) Unspecified essential hypertension Type 2 diabetes mellitus with complication, with long-term current use of insulin ([facility]) Class 3 severe obesity with serious comorbidity and body mass index (BMI) of 50.0 to 59.9 in adult,unspecified obesity type ([facility]) Tobacco user Tobacco use disorder Other headache syndrome Malignant neoplasm of cervix uteri, unspecified (CMS/HCC) Other specified disorders of adrenal gland ([facility]) Major depressive disorder, single episode, mild (HCC) ([facility]) Major depressive disorder, single episode, mild Non-pressure chronic ulcer of other part of left lower leg with fat layer exposed ([facility]) Chronic respiratory failure, unspecified whether with hypoxia or hypercapnia ([facility]) Disorder of adrenal gland, unspecified ([facility]) Non-pressure chronic ulcer of other part of right lower leg limited to breakdown of skin ([facility]) Non-recurrent acute suppurative otitis media of left ear without spontaneous rupture of tympanic membrane Primary hypertension ([facility])- Primary Unspecified essential hypertension Insomnia Insomnia, unspecified Type 2 diabetes mellitus with complication, with long-term current use of insulin ([facility]) Non-seasonal allergic rhinitis, unspecified trigger Type 2 diabetes mellitus with unspecified complications ([facility]) Anxiety and depression ([facility]) Gastro-esophageal reflux disease without esophagitis Edema, unspecified Edema Diabetic polyneuropathy associated with type 2 diabetes mellitus ([facility]) Chronic obstructive pulmonary disease, [...] ([facility]) PAD (peripheral artery disease) ([facility]) Unspecified peripheral vascular disease Gastroesophageal reflux disease, unspecified whether esophagitis present Bilateral lower extremity edema Venous ulcer of right leg ([facility]) Type 2 diabetes mellitus with complication, with long-term current use of insulin ([facility]) Tobacco user Tobacco use disorder Encounter for smoking cessation counseling Kidney stone Calculus of kidney Adrenal mass 1 cm to 4 cm in diameter (CMS/HCC) Radiculopathy, lumbar region Thoracic or lumbosacral neuritis or radiculitis, unspecified Non-seasonal allergic rhinitis, unspecified trigger Type 2 diabetes mellitus with unspecified complications (CMS/HCC) documented in this encounter [facility] HealthcareEvaluation note* Diagnosis Obstructive sleep apnea- Primary Obstructive sleep apnea (adult) (pediatric) Pulmonary emphysema, unspecified emphysema type (CMS/HCC) Primary hypertension (CMS/HCC) Unspecified essential hypertension Type 2 diabetes mellitus with complication, with long-term current use of insulin (CMS/HCC) Anxiety and depression (CMS/HCC) Bilateral lower extremity edema Pulmonary emphysema, unspecified emphysema type (CMS/HCC)- Primary Primary hypertension ([facility]) Unspecified essential hypertension Class 3 [...] current use of insulin (CMS/HCC) Mixed hyperlipidemia ([facility]) Mixed hyperlipidemia [...] 50.0 to 59.9 in adult,unspecified obesity type ([facility]) Encounter for subsequent annual wellness [...] left lower leg with fat layer exposed ([facility]) Chronic respiratory failure, unspecified whether with hypoxia or hypercapnia ([facility]) Disorder of adrenal gland, unspecified ([facility]) Non-pressure chronic ulcer of other part of right lower leg limited to breakdown of skin ([facility]) Non-recurrent acute suppurative otitis media of left ear without spontaneous rupture of tympanic membrane Primary hypertension ([facility])- Primary Unspecified essential hypertension Insomnia Insomnia, unspecified Type 2 diabetes mellitus with complication, with long-term current use of insulin ([facility]) Non-seasonal allergic rhinitis, unspecified trigger Type 2 diabetes mellitus with unspecified complications ([facility]) Anxiety and depression ([facility]) Gastro-esophageal reflux disease without esophagitis Edema, unspecified Edema Diabetic polyneuropathy associated with type 2 diabetes mellitus ([facility]) Chronic obstructive pulmonary disease, unspecified (CMS/HCC) Pulmonary emphysema, unspecified emphysema type (CMS/HCC) Bilateral lower extremity edema Tobacco user Tobacco use disorder Hyperpigmentation of skin Other dyschromia Primary hypertension (CMS/HCC)- Primary Unspecified essential hypertension Diabetic polyneuropathy associated with type 2 diabetes mellitus (CMS/HCC) Pulmonary emphysema, unspecified emphysema type (CMS/HCC) Critical limb ischemia of right lower extremity (CMS/HCC) PAD (peripheral artery disease) ([facility]) Unspecified peripheral vascular disease Gastroesophageal reflux disease, unspecified whether esophagitis present Bilateral lower extremity edema Venous ulcer of right leg ([facility]) Type 2 diabetes mellitus with complication, with long-term current use of insulin ([facility]) Tobacco user Tobacco use disorder Encounter for smoking cessation counseling Kidney stone Calculus of kidney Adrenal mass 1 cm to 4 cm in diameter ([facility]) Radiculopathy, lumbar region Thoracic or lumbosacral neuritis or radiculitis, unspecified Non-seasonal allergic rhinitis, unspecified trigger Type 2 diabetes mellitus with unspecified complications ([facility]) Anxiety and depression ([facility])- Primary Morbid (severe) obesity due to excess calories ([facility]) Body mass index (BMI) 50.0-59.9, adult ([facility]) Malignant neoplasm of cervix uteri, unspecified ([facility]) Diabetic polyneuropathy associated with type 2 diabetes mellitus ([facility]) Chronic diastolic heart failure ([facility]) Chronic diastolic heart failure Primary hypertension ([facility]) Unspecified essential hypertension Idiopathic chronic venous hypertension of both lower extremities with ulcer ([facility]) Gastroesophageal reflux disease, unspecified whether esophagitis present Bilateral lower extremity edema Type 2 diabetes mellitus with complication, with long-term current use of insulin ([facility]) Tobacco user Tobacco use disorder Mixed hyperlipidemia ([facility]) Mixed hyperlipidemia Gout, unspecified cause, unspecified chronicity, unspecified site Vitamin deficiency Unspecified vitamin deficiency Gastro-esophageal reflux disease without esophagitis Edema, unspecified Edema Hyperlipidemia, unspecified ([facility]) Encounter for smoking cessation counseling Venous ulcer of right leg ([facility]) Antibiotic-induced yeast infection documented in this encounter [facility] HealthcareEvaluation note* Diagnosis Obstructive sleep apnea- Primary Obstructive sleep apnea (adult) (pediatric) Pulmonary emphysema, unspecified emphysema type ([facility]) Primary hypertension ([facility]) Unspecified essential hypertension Type 2 diabetes mellitus with complication, with long-term current use of insulin ([facility]) Anxiety and depression ([facility]) Bilateral lower extremity edema Pulmonary emphysema, unspecified emphysema type ([facility])- Primary Primary hypertension ([facility]) Unspecified essential hypertension Class 3 severe obesity with serious comorbidity and body mass index (BMI) of 50.0 to 59.9 in adult,unspecified obesity type Obstructive sleep apnea Obstructive sleep apnea (adult) (pediatric) Pulmonary hypertension ([facility]) Other chronic pulmonary heart diseases Tobacco user Tobacco use disorder Cardiomegaly Primary hypertension ([facility])- Primary Unspecified essential hypertension Gastroesophageal reflux disease, unspecified whether esophagitis present Type 2 diabetes mellitus with complication, with long-term current use of insulin ([facility]) Mixed hyperlipidemia ([facility]) [...] with exacerbation Pulmonary emphysema, unspecified emphysema type ([facility]) Venous insufficiency Unspecified venous (peripheral) [...] unspecified complications Pulmonary emphysema, unspecified emphysema type ([facility]) Moderate persistent asthma without complication ([facility]) Primary hypertension ([facility]) Unspecified essential hypertension Type 2 diabetes mellitus with complication, with long-term current use of insulin ([facility]) Class 3 severe obesity with serious comorbidity and body mass index (BMI) of 50.0 to 59.9 in adult,unspecified obesity type Tobacco user Tobacco use disorder Other headache syndrome Malignant neoplasm of cervix uteri, unspecified Other specified disorders of adrenal gland Major depressive disorder, single episode, mild (HCC) ([facility]) Major depressive disorder, single [...] spontaneous rupture of tympanic membrane Primary hypertension ([facility])- Primary Unspecified essential hypertension Insomnia Insomnia, unspecified Type 2 diabetes mellitus with complication, with long-term current use of insulin ([facility]) Non-seasonal allergic rhinitis, unspecified trigger Type 2 diabetes mellitus with unspecified complications Anxiety and depression ([facility]) Gastro-esophageal reflux disease without esophagitis Edema, unspecified Edema Diabetic polyneuropathy associated with type 2 diabetes mellitus ([facility]) Chronic obstructive pulmonary disease, unspecified Pulmonary emphysema, unspecified emphysema type ([facility]) Bilateral lower extremity edema Tobacco user Tobacco use disorder Hyperpigmentation of skin Other dyschromia Primary hypertension ([facility])- Primary Unspecified essential hypertension Diabetic polyneuropathy associated with type 2 diabetes mellitus ([facility]) Pulmonary emphysema, unspecified emphysema type ([facility]) Critical limb ischemia of right lower extremity ([facility]) PAD (peripheral artery disease) ([facility]) Unspecified peripheral vascular disease Gastroesophageal reflux disease, unspecified whether esophagitis present Bilateral lower extremity edema Venous ulcer of right leg ([facility]) Type 2 diabetes mellitus with complication, with long-term current use of insulin ([facility]) Tobacco user Tobacco use disorder Encounter for smoking cessation counseling Kidney stone Calculus of kidney Adrenal mass 1 cm to 4 cm in diameter ([facility]) Radiculopathy, lumbar region Thoracic or lumbosacral neuritis or radiculitis, unspecified Non-seasonal allergic rhinitis, unspecified trigger Type 2 diabetes mellitus with unspecified complications Anxiety and depression ([facility])- Primary Morbid (severe) obesity due to excess calories ([facility]) Body mass index (BMI) 50.0-59.9, adult ([facility]) Malignant neoplasm of cervix uteri, unspecified Diabetic polyneuropathy associated with type 2 diabetes mellitus ([facility]) Chronic diastolic heart failure ([facility]) Chronic diastolic heart failure Primary hypertension ([facility]) Unspecified essential hypertension Idiopathic chronic venous hypertension of both lower extremities with ulcer Gastroesophageal reflux disease, unspecified whether esophagitis present Bilateral lower extremity edema Type 2 diabetes mellitus with complication, with long-term current use of insulin ([facility]) Tobacco user Tobacco use disorder Mixed hyperlipidemia ([facility]) Mixed hyperlipidemia Gout, unspecified cause, unspecified chronicity, unspecified site Vitamin deficiency Unspecified vitamin deficiency Gastro-esophageal reflux disease without esophagitis Edema, unspecified Edema Hyperlipidemia, unspecified ([facility]) Encounter for smoking cessation counseling Venous ulcer of right leg ([facility]) Antibiotic-induced yeast infection Type 2 diabetes mellitus with hyperglycemia, with long-term current use of insulin ([facility])- Primary Encounter for dietary consultation Vitamin D deficiency Primary hypertension ([facility]) Unspecified essential hypertension Insulin long-term use ([facility]) Encounter for long-term (current) use of insulin Hyperlipemia, mixed ([facility]) Mixed hyperlipidemia Microalbuminuria Proteinuria Class 3 severe obesity due to excess calories with serious comorbidity and body mass index (BMI) of50.0 to 59.9 in adult documented in this encounter [facility] HealthcareEvaluation note* Diagnosis Obstructive sleep apnea- Primary Obstructive sleep apnea (adult) (pediatric) Pulmonary emphysema, unspecified emphysema type ([facility]) Primary hypertension ([facility]) Unspecified essential hypertension Type 2 diabetes mellitus with complication, with long-term current use of insulin ([facility]) Anxiety and depression ([facility]) Bilateral lower extremity edema Pulmonary emphysema, unspecified emphysema type ([facility])- Primary Primary hypertension ([facility]) Unspecified essential hypertension Class 3 severe obesity with serious comorbidity and body mass index (BMI) of 50.0 to 59.9 in adult,unspecified obesity type Obstructive sleep apnea Obstructive sleep apnea (adult) (pediatric) Pulmonary hypertension ([facility]) Other chronic pulmonary heart diseases Tobacco user Tobacco use disorder Cardiomegaly Primary hypertension ([facility])- Primary Unspecified essential hypertension Gastroesophageal reflux disease, unspecified whether esophagitis present Type 2 diabetes mellitus with complication, with long-term current use of insulin ([facility]) Mixed hyperlipidemia ([facility]) Mixed hyperlipidemia Tobacco user Tobacco use disorder Encounter for screening mammogram for malignant neoplasm of breast Chronic obstructive pulmonary disease, unspecified Other specified chronic obstructive pulmonary disease Anxiety and depression ([facility]) Edema, unspecified Edema Hyperlipidemia, unspecified ([facility]) Diabetic polyneuropathy associated with type 2 diabetes mellitus ([facility]) Gout, unspecified cause, unspecified chronicity, unspecified site Non-seasonal allergic rhinitis, unspecified trigger Bilateral lower extremity edema COPD exacerbation ([facility]) Obstructive chronic bronchitis with exacerbation Pulmonary emphysema, unspecified emphysema type ([facility]) Venous insufficiency Unspecified venous (peripheral) insufficiency Candidiasis of breast COPD exacerbation ([facility])- Primary Obstructive chronic bronchitis with exacerbation Pulmonary hypertension ([facility]) Other chronic pulmonary heart diseases Class 3 severe obesity with serious comorbidity and body mass index (BMI) of 50.0 to 59.9 in adult,unspecified obesity type Encounter for subsequent annual wellness visit (AWV) in Medicare patient- Primary Type 2 diabetes mellitus with unspecified complications Pulmonary emphysema, unspecified emphysema type ([facility]) Moderate persistent asthma without complication ([facility]) Primary hypertension ([facility]) Unspecified essential hypertension Type 2 diabetes mellitus with complication, with long-term current use of insulin ([facility]) Class 3 severe obesity with serious comorbidity and body mass index (BMI) of 50.0 to 59.9 in adult,unspecified obesity type Tobacco user Tobacco use disorder Other headache syndrome Malignant neoplasm of cervix uteri, unspecified Other specified disorders of adrenal gland Major depressive disorder, single episode, mild (HCC) ([facility]) Major depressive disorder, single episode, mild Non-pressure chronic ulcer of other part of left lower leg with fat layer exposed Chronic respiratory failure, unspecified whether with hypoxia or hypercapnia Disorder of adrenal gland, unspecified Non-pressure chronic ulcer of other part of right lower leg limited to breakdown of skin ([facility]) Non-recurrent acute suppurative otitis media of left ear without spontaneous rupture of tympanic membrane Primary hypertension ([facility])- Primary Unspecified essential hypertension Insomnia Insomnia, unspecified Type 2 diabetes mellitus with complication, with long-term current use of insulin ([facility]) Non-seasonal allergic rhinitis, unspecified trigger Type 2 diabetes mellitus with unspecified complications Anxiety and depression ([facility]) Gastro-esophageal reflux disease without esophagitis Edema, unspecified Edema Diabetic polyneuropathy associated with type 2 diabetes mellitus ([facility]) Chronic obstructive pulmonary disease, unspecified Pulmonary emphysema, unspecified emphysema type ([facility]) Bilateral lower extremity edema Tobacco user Tobacco use disorder Hyperpigmentation of skin Other dyschromia Primary hypertension ([facility])- Primary Unspecified essential hypertension Diabetic polyneuropathy associated with type 2 diabetes mellitus ([facility]) Pulmonary emphysema, unspecified emphysema type ([facility]) Critical limb ischemia of right lower extremity ([facility]) PAD (peripheral artery disease) ([facility]) Unspecified peripheral vascular disease Gastroesophageal reflux disease, unspecified whether esophagitis present Bilateral lower extremity edema Venous ulcer of right leg ([facility]) Type 2 diabetes mellitus with complication, with long-term current use of insulin ([facility]) Tobacco user Tobacco use disorder Encounter for smoking cessation counseling Kidney stone Calculus of kidney Adrenal mass 1 cm to 4 cm in diameter ([facility]) Radiculopathy, lumbar region Thoracic or lumbosacral neuritis or radiculitis, unspecified Non-seasonal allergic rhinitis, unspecified trigger Type 2 diabetes mellitus with unspecified complications Anxiety and depression ([facility])- Primary Morbid (severe) obesity due to excess calories ([facility]) Body mass index (BMI) 50.0-59.9, adult ([facility]) Malignant neoplasm of cervix uteri, unspecified Diabetic polyneuropathy associated with type 2 diabetes mellitus ([facility]) Chronic diastolic heart failure ([facility]) Chronic diastolic heart failure Primary hypertension ([facility]) Unspecified essential hypertension 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 Gastroesophageal reflux disease, unspecified whether esophagitis present Bilateral lower extremity edema Type 2 diabetes mellitus with complication, with long-term current use of insulin ([facility]) Tobacco user Tobacco use disorder Mixed hyperlipidemia ([facility]) Mixed hyperlipidemia Gout, unspecified cause, unspecified chronicity, unspecified site Vitamin deficiency Unspecified vitamin deficiency Gastro-esophageal reflux disease without esophagitis Edema, unspecified Edema Hyperlipidemia, unspecified ([facility]) Encounter for smoking cessation counseling Venous ulcer of right leg ([facility]) Antibiotic-induced yeast infection Chronic obstructive pulmonary disease, unspecified documented in this encounter [facility] HealthcareEvaluation note* Diagnosis Obstructive sleep apnea- Primary Obstructive sleep apnea (adult) (pediatric) Pulmonary emphysema, unspecified emphysema type ([facility]) Primary hypertension ([facility]) Unspecified essential hypertension Type 2 diabetes mellitus with complication, with long-term current use of insulin ([facility]) Anxiety and depression ([facility]) Bilateral lower extremity edema Pulmonary emphysema, unspecified emphysema type ([facility])- Primary Primary hypertension ([facility]) Unspecified essential hypertension Class 3 severe obesity with serious comorbidity and body mass index (BMI) of 50.0 to 59.9 in adult,unspecified obesity type Obstructive sleep apnea Obstructive sleep apnea (adult) (pediatric) Pulmonary hypertension ([facility]) Other chronic pulmonary heart diseases Tobacco user Tobacco use disorder Cardiomegaly Primary hypertension ([facility])- Primary Unspecified essential hypertension Gastroesophageal reflux disease, unspecified whether esophagitis present Type 2 diabetes mellitus with complication, with long-term current use of insulin ([facility]) Mixed hyperlipidemia ([facility]) Mixed hyperlipidemia Tobacco user Tobacco use disorder Encounter for screening mammogram for malignant neoplasm of breast Chronic obstructive pulmonary disease, unspecified Other specified chronic obstructive pulmonary disease Anxiety and depression ([facility]) Edema, unspecified Edema Hyperlipidemia, unspecified ([facility]) Diabetic polyneuropathy associated with type 2 diabetes mellitus ([facility]) Gout, unspecified cause, unspecified chronicity, unspecified site Non-seasonal allergic rhinitis, unspecified trigger Bilateral lower extremity edema COPD exacerbation ([facility]) Obstructive chronic bronchitis with exacerbation Pulmonary emphysema, unspecified emphysema type ([facility]) Venous insufficiency Unspecified venous [...] unspecified complications Pulmonary emphysema, unspecified emphysema type ([facility]) Moderate persistent asthma without complication ([facility]) Primary hypertension ([facility]) Unspecified essential hypertension Type 2 diabetes mellitus with complication, with long-term current use of insulin ([facility]) Class 3 severe obesity with serious comorbidity and body mass index (BMI) of 50.0 to 59.9 in adult,unspecified obesity type Tobacco user Tobacco use disorder Other headache syndrome Malignant neoplasm of cervix uteri, unspecified Other specified disorders of adrenal gland Major depressive disorder, single episode, mild (HCC) ([facility]) Major depressive disorder, single episode, mild Non-pressure chronic ulcer of other part of left lower leg with fat layer exposed Chronic respiratory failure, unspecified whether with hypoxia or hypercapnia Disorder of adrenal gland, unspecified Non-pressure chronic ulcer of other part of right lower leg limited to breakdown of skin ([facility]) Non-recurrent acute suppurative otitis media of left ear without spontaneous rupture of tympanic membrane Primary hypertension ([facility])- Primary Unspecified essential hypertension Insomnia Insomnia, unspecified Type 2 diabetes mellitus with complication, with long-term current use of insulin ([facility]) Non-seasonal allergic rhinitis, unspecified trigger Type 2 diabetes mellitus with unspecified complications Anxiety and depression ([facility]) Gastro-esophageal reflux disease without esophagitis Edema, unspecified Edema Diabetic polyneuropathy associated with type 2 diabetes mellitus ([facility]) Chronic obstructive pulmonary disease, unspecified Pulmonary emphysema, unspecified emphysema type ([facility]) Bilateral lower extremity edema Tobacco user Tobacco use disorder Hyperpigmentation of skin Other dyschromia Primary hypertension ([facility])- Primary Unspecified essential hypertension Diabetic polyneuropathy associated with type 2 diabetes mellitus ([facility]) Pulmonary emphysema, unspecified emphysema type ([facility]) Critical limb ischemia of right lower extremity ([facility]) PAD (peripheral artery disease) ([facility]) Unspecified peripheral vascular disease Gastroesophageal reflux disease, unspecified whether esophagitis present Bilateral lower extremity edema Venous ulcer of right leg ([facility]) Type 2 diabetes mellitus with complication, with long-term current use of insulin ([facility]) Tobacco user Tobacco use disorder Encounter for smoking cessation counseling Kidney stone Calculus of kidney Adrenal mass 1 cm to 4 cm in diameter ([facility]) Radiculopathy, lumbar region Thoracic or lumbosacral neuritis or radiculitis, unspecified Non-seasonal allergic rhinitis, unspecified trigger Type 2 diabetes mellitus with unspecified complications Anxiety and depression ([facility])- Primary Morbid (severe) obesity due to excess calories ([facility]) Body mass index (BMI) 50.0-59.9, adult ([facility]) Malignant neoplasm of cervix uteri, unspecified Diabetic polyneuropathy associated with type 2 diabetes mellitus ([facility]) Chronic diastolic heart failure ([facility]) Chronic diastolic heart failure Primary hypertension ([facility]) Unspecified essential hypertension 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 Gastroesophageal reflux disease, unspecified whether esophagitis present Bilateral lower extremity edema Type 2 diabetes mellitus with complication, with long-term current use of insulin ([facility]) Tobacco user Tobacco use disorder Mixed hyperlipidemia ([facility] [facility] Mixed hyperlipidemia Gout, unspecified cause, unspecified chronicity, unspecified site Vitamin deficiency Unspecified vitamin deficiency Gastro-esophageal reflux disease without esophagitis Edema, unspecified Edema Hyperlipidemia, unspecified ([facility]) Encounter for smoking cessation counseling Venous ulcer of right leg ([facility]) Antibiotic-induced yeast infection Primary hypertension ([facility])- Primary Unspecified essential hypertension Diabetic polyneuropathy associated with type 2 diabetes mellitus ([facility]) Chronic diastolic heart failure ([facility]) Chronic diastolic heart failure Bilateral lower extremity edema Morbid (severe) obesity due to excess calories ([facility]) Type 2 diabetes mellitus with complication, with long-term current use of insulin ([facility]) Anxiety and depression ([facility]) Cigarette nicotine dependence without complication Encounter for screening mammogram for malignant neoplasm of breast Insomnia Insomnia, unspecified Non-seasonal allergic rhinitis, unspecified trigger Type 2 diabetes mellitus with unspecified complications Vitamin D deficiency, unspecified Gastro-esophageal reflux disease without esophagitis PAD (peripheral artery disease) ([facility]) Unspecified peripheral vascular disease Gastroesophageal reflux disease, unspecified whether esophagitis present Venous ulcer of right leg ([facility]) documented in this encounter [facility] [...] 50.0 to 59.9 in adult,unspecified obesity type ([facility]) Obstructive sleep apnea Obstructive [...] 50.0 to 59.9 in adult,unspecified obesity type ([facility]) Encounter for subsequent annual wellness [...] 50.0 to 59.9 in adult,unspecified obesity type ([facility] [...] Critical limb ischemia of right lower extremity ([facility]) PAD (peripheral artery disease) [...] Morbid (severe) obesity due to excess calories ([facility]) Body mass index (BMI) 50.0-59.9, adult ([facility]) Malignant neoplasm of cervix uteri, unspecified ([place] [...] Morbid (severe) obesity due to excess calories ([facility]) Type 2 diabetes mellitus [...] Morbid (severe) obesity due to excess calories ([facility]) Type 2 diabetes mellitus with complication, with long-term current use of insulin ([facility]) Anxiety and depression Fever, unspecified fever cause Hyperlipidemia, unspecified Tobacco user Tobacco use disorder Encounter for smoking cessation counseling documented in this encounter [facility] HealthcareEvaluation note* Diagnosis Obstructive sleep apnea- Primary Obstructive sleep apnea (adult) (pediatric) Pulmonary emphysema, unspecified emphysema type ([facility]) Primary hypertension ([facility]) Unspecified essential hypertension Type 2 diabetes mellitus with complication, with long-term current use of insulin ([facility]) Anxiety and depression ([facility]) Bilateral lower extremity edema Pulmonary emphysema, unspecified emphysema type ([facility])- Primary Primary hypertension ([facility]) Unspecified essential hypertension Class [...] [facility]) Edema, unspecified Edema Hyperlipidemia, unspecified (CMS/HCC) Diabetic polyneuropathy associated with type 2 diabetes mellitus ([facility]) Gout, unspecified cause, unspecified chronicity, unspecified site Non-seasonal allergic rhinitis, unspecified trigger Bilateral lower extremity edema COPD exacerbation ([facility]) Obstructive chronic bronchitis with exacerbation Pulmonary emphysema, unspecified emphysema type ([facility]) Venous insufficiency Unspecified venous (peripheral) [...] without complication ([facility]) Primary hypertension ([facility]) Unspecified essential hypertension Type 2 diabetes mellitus with complication, with long-term current use of insulin ([facility]) Class 3 severe obesity [...] spontaneous rupture of tympanic membrane Primary hypertension ([facility])- Primary Unspecified essential hypertension Insomnia Insomnia, unspecified Type 2 diabetes mellitus with complication, with long-term current use of insulin ([facility]) Non-seasonal allergic rhinitis, unspecified trigger Type 2 diabetes mellitus with unspecified complications Anxiety and depression ([facility]) Gastro-esophageal reflux disease without esophagitis Edema, unspecified Edema Diabetic polyneuropathy associated with type 2 diabetes mellitus ([facility]) Chronic obstructive pulmonary disease, unspecified Pulmonary emphysema, unspecified emphysema type ([facility]) Bilateral lower extremity edema Tobacco user Tobacco use disorder Hyperpigmentation of skin Other dyschromia Primary hypertension ([facility])- Primary Unspecified essential hypertension Diabetic polyneuropathy associated with type 2 diabetes mellitus ([facility]) Pulmonary emphysema, unspecified emphysema type ([facility]) Critical limb ischemia of right lower extremity ([facility]) PAD (peripheral artery disease) ([facility]) Unspecified peripheral vascular disease Gastroesophageal reflux disease, unspecified whether esophagitis present Bilateral lower extremity edema Venous ulcer of right leg ([facility]) Type 2 diabetes mellitus with complication, with long-term current use of insulin ([facility]) Tobacco user Tobacco use disorder Encounter for smoking cessation counseling Kidney stone Calculus of kidney Adrenal mass 1 cm to 4 cm in diameter ([facility]) Radiculopathy, lumbar region Thoracic or lumbosacral neuritis or radiculitis, unspecified Non-seasonal allergic rhinitis, unspecified trigger Type 2 diabetes mellitus with unspecified complications Anxiety and depression ([facility])- Primary Morbid (severe) obesity due to excess calories ([facility]) Body mass index (BMI) 50.0-59.9, adult ([facility]) Malignant neoplasm of cervix uteri, unspecified Diabetic polyneuropathy associated with type 2 diabetes mellitus ([facility]) Chronic diastolic heart failure ([facility]) Chronic diastolic heart failure Primary hypertension ([facility]) Unspecified essential hypertension 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 Gastroesophageal reflux disease, unspecified whether esophagitis present Bilateral lower extremity edema Type 2 diabetes mellitus with complication, with long-term current use of insulin ([facility]) Tobacco user Tobacco use disorder Mixed hyperlipidemia ([facility]) Mixed hyperlipidemia Gout, unspecified cause, unspecified chronicity, unspecified site Vitamin deficiency Unspecified vitamin deficiency Gastro-esophageal reflux disease without esophagitis Edema, unspecified Edema Hyperlipidemia, unspecified ([facility]) Encounter for smoking cessation counseling Venous ulcer of right leg ([facility]) Antibiotic-induced yeast infection Primary hypertension ([facility])- Primary Unspecified essential hypertension Diabetic polyneuropathy associated with type 2 diabetes mellitus ([facility]) Chronic diastolic heart failure ([facility]) Chronic diastolic heart failure Bilateral lower extremity edema Morbid (severe) obesity due to excess calories ([facility]) Type 2 diabetes mellitus with complication, with long-term current use of insulin ([facility]) Anxiety and depression ([facility]) Cigarette nicotine dependence without complication Encounter for screening mammogram for malignant neoplasm of breast Insomnia Insomnia, unspecified Non-seasonal allergic rhinitis, unspecified trigger Type 2 diabetes mellitus with unspecified complications Vitamin D deficiency, unspecified Gastro-esophageal reflux disease without esophagitis PAD (peripheral artery disease) ([facility]) Unspecified peripheral vascular disease Gastroesophageal reflux disease, unspecified whether esophagitis present Venous ulcer of right leg ([facility]) Cellulitis of left lower extremity- Primary COPD exacerbation ([facility]) Obstructive chronic bronchitis with exacerbation Primary hypertension ([facility]) Unspecified essential hypertension Pulmonary hypertension ([facility]) Other chronic pulmonary heart diseases Morbid (severe) obesity due to excess calories ([facility]) Type 2 diabetes mellitus with complication, with long-term current use of insulin ([facility]) Anxiety and depression ([facility]) Fever, unspecified fever cause documented in this encounter [facility] HealthcareEvaluation note* Diagnosis Obstructive sleep apnea- [...] 50.0 to 59.9 in adult,unspecified obesity type ([facility]) Obstructive sleep apnea Obstructive [...] 50.0 to 59.9 in adult,unspecified obesity type ([facility] [...] 50.0 to 59.9 in adult,unspecified obesity type ([facility]) Tobacco user Tobacco use [...] Critical limb ischemia of right lower extremity ([facility]) PAD (peripheral artery disease) [...] Morbid (severe) obesity due to excess calories ([facility]) Body mass index (BMI) 50.0-59.9, adult ([facility]) Malignant neoplasm of cervix uteri, unspecified ([facility] [...] Morbid (severe) obesity due to excess calories ([facility]) Type 2 diabetes mellitus [...] Morbid (severe) obesity due to excess calories ([facility]) Type 2 diabetes mellitus with hyperglycemia, with long-term current use of insulin ([facility]) documented [facility] encounter [facility] [...] 50.0 to 59.9 in adult,unspecified obesity type ([facility]) Obstructive sleep apnea Obstructive [...] 50.0 to 59.9 in adult,unspecified obesity type ([facility] [...] 50.0 to 59.9 in adult,unspecified obesity type ([facility]) Tobacco user Tobacco use [...] mellitus (HCC) Pulmonary emphysema, unspecified emphysema type ([facility]) Critical limb ischemia of right lower extremity ([facility]) PAD (peripheral artery disease) [...] [place]) Malignant neoplasm of cervix uteri, unspecified ([facility] [...] current use of insulin ([facility]) Bilateral lower extremity edema Gastro-esophageal reflux disease without esophagitis Chronic diastolic heart failure (HCC) Chronic diastolic heart failure Primary hypertension Unspecified essential hypertension Pulmonary hypertension (HCC) Other chronic pulmonary heart diseases Diabetic polyneuropathy associated with type 2 diabetes mellitus ([facility]) Pulmonary emphysema, unspecified emphysema type ([facility]) Moderate persistent asthma without complication ([facility]) Insomnia Insomnia, unspecified Non-seasonal allergic rhinitis, unspecified trigger Type 2 diabetes mellitus with unspecified complications ([facility]) Anxiety and depression Antibiotic-induced yeast infection Chronic obstructive pulmonary disease, unspecified ([facility]) Hyperlipidemia, unspecified Vaginal yeast infection [...] index (BMI) of50.0 to 59.9 in adult ([facility]) documented [facility] this encounter [facility] [...] 50.0 to 59.9 in adult,unspecified obesity type ([facility] [...] 50.0 to 59.9 in adult,unspecified obesity type ([facility] [...] 50.0 to 59.9 in adult,unspecified obesity type ([facility] [...] Critical limb ischemia of right lower extremity ([facility]) PAD (peripheral artery disease) [...] [place]) Malignant neoplasm of cervix uteri, unspecified ([facility] [...] Morbid (severe) obesity due to excess calories ([facility]) Type 2 diabetes mellitus with [...] Morbid (severe) obesity due to excess calories ([facility]) Tobacco user Tobacco use disorder Encounter for smoking cessation counseling documented in this encounter [facility] HealthcareEvaluation noteNo assessment information availableWyandot [facility] Hospital Work Phone: History general Narrative - Reported* Type Description Date Medical History diabetes mallitus Medical HistoryCOPDMedical HistoryADRENAL MASS 1 CM TO 4 CM IN DIAMETERMedical HistoryARTHRITISMedical HistoryASTHMAMedical HistoryHEADACHEMedical History HYPERTENSIONMedical HistoryKIDNEY STONESMedical HistoryLEFT FLANK PAINMedical HistoryMIXED INCONTINENCEMedical HistoryPROTEINURIAMedical HistorySMOKERSurgical [id number] Historytoe surgerySurgical HistoryLAPAROSCOPIC CHOLECYSTECTOMYHospitalization [id number] HistorySEE ABOVE [facility] Other Hospital course Narrative No data available for this section [facility] progress note No data available for this section [facility] reason for referral (narrative) , Referral to Dr. Cortés Referred by: REGLA PHIPPS, Elbert Joya [facility] reason for referral (narrative)No reason for referral information availableWyandot Memorial Hospital Work Phone: Advance Directives No Advanced Directives Records FoundDocuments on File TypeDate RecordedPatient RepresentativeExplanationAdvance Directives and Living WillPower of Java Oracle Developer Advance Directive Response Recorded Date/ Time Advance [...] section and content) DATE CREATED AUTHOR 10/30/2019 [facility] DATE CREATED AUTHOR AUTHOR'S ORGANIZ ATION 09/15/2020 [facility] DATE CREATED AUTHOR AUTHOR'S ORGANIZ ATION 12/19/2022 [facility] DATE CREATED AUTHOR AUTHOR'S ORGANIZ ATION 01/30/2025 [facility] DATE CREATED AUTHOR AUTHOR'S ORGANIZ ATION 04/12/2025 [facility] DATE CREATED AUTHOR AUTHOR'S ORGANIZ ATION 04/29/2025 [facility] DATE CREATED AUTHOR AUTHOR'S ORGANIZ ATION 05/21/2025 [facility] Care Team (unrecognized sect ion and content) Team MemberRelationshipSpecialtyStart DateEnd Date Ty Amin MD PCP - GeneralFamily Medicine01/05/23Team MemberRelationshipSpecialtyStart DateEnd Date Ty Amin MD PCP - GeneralFamily Medicine01/05/23Team MemberRelationshipSpecialtyStart DateEnd Date Ty Amin MD [address] [place] [address] PCP - GeneralFamily Medicine09/20/23 Mckayla Blas NP [address] [place] [address] PCP - / Mckayla Blas NP [address] [place] [address] Nurse PractitionerFamily Medicine09/20/23Team MemberRelationshipSpecialtyStart DateEnd Date Ty Amin MD [address] [place] [address] PCP - [facility]09/20/23 Mckayla Blas NP [address] [place] [address] PCP [facility]/ Mckayla Blas NP [address] [place] [address] [facility]/20/23Team MemberRelationshipSpecialtyStart DateEnd Date Ty Amin MD [address] [place] [address] PCP - [facility]09/20/23 Mckayla Blas NP [address] [place] [address] [place] [address]/ Mckayla Blas NP [address] [place] [address] [facility]09/20/23Team MemberRelationshipSpecialtyStart DateEnd Date Ty Amin MD [address] [place] [address] PCP - [facility]09/20/23 Mckayla Blas NP [address] [place] [address] PCP - [facility]/ Mckayla Blas NP [address] [place] [address] [facility]09/20/23Team MemberRelationshipSpecialtyStart DateEnd Date Ty Amin MD [address] [place] [address] [facility] - [facility]09/20/23 Mckayla Blas NP [address] [place] [address] PCP [facility] Mckayla Blas NP [address] [place] [address] [facility]09/20/23Team MemberRelationshipSpecialtyStart DateEnd Date Ty Amin MD [address] [place] [address] [facility]/23 Mckayla Blas NP [address] [place] [address] PCP [facility] Mckayla Blas NP [address] [place] [address] [facility]09/20/23Team MemberRelationshipSpecialtyStart DateEnd Date Ty Amin MD [address] [place] [address] PCP - [facility]09/20/23 Mckayla Blas NP [address] [place] [address] PCP [facility]/ Mckayla Blas NP [address] [place] [address] [facility]09/20/23Team MemberRelationshipSpecialtyStart DateEnd Date Ty Amin MD [address] [place] [address] PCP - [facility]09/20/23 Mckayla Blas, SILVANO [address] [place] [address] [place] [address]/ Mckayla Blas NP [address] [place] [address] [facility]09/20/23Team MemberRelationshipSpecialtyStart DateEnd Date Ty Amin MD [address] [place] [address] PCP - Generalmily Medicine09/20/23 Mckayla Blas NP [address] [place] [address] [place] [address]/ Mckayla Blas NP [address] [place] [address] [facility]09/20/23Team MemberRelationshipSpecialtyStart DateEnd Date Ty Amin MD [address] [place] [address] PCP - [facility]09/20/23 Mckayla Blas NP [address] [place] [address] [place] [address]/ Mckayla Blas NP [address] [place] [address] [facility]09/20/23Team MemberRelationshipSpecialtyStart DateEnd Date Ty Amin MD [address] [place] [address] PCP - [facility]09/20/23 Mckayla Blas NP [address] [place] [address] [place] [address]/ Mckayla Blas NP [address] [place] [address] [facility]09/20/23Team MemberRelationshipSpecialtyStart DateEnd Date Ty Amin MD [address] [place] [address] P[facility] - [facility]/20/23 Mckayla Blas NP [address] [place] [address] [place] [address] Mckayla Blas NP [address] [place] [address] [facility]09/20/23Team MemberRelationshipSpecialtyStart DateEnd Date Ty Amin MD [address] [place] [address] PCP - [facility]09/20/23 Mckayla Blas NP [address] [place] [address] [place] [address] Mckayla Blas NP [address] [place] [address] [facility]09/20/23Team MemberRelationshipSpecialtyStart DateEnd Date Ty Amin MD [address] [place] [address] PCP - [facility]09/20/23 Mckayla Blas NP [address] [place] [address] [place] [address]/ Mckayla Blas NP [address] [place] [address] [facility]09/20/23Team MemberRelationshipSpecialtyStart DateEnd Date Ty Amin MD [address] [place] [address] PCP - [facility]09/20/23 Mckayla Blas NP [address] [place] [address] [place] [address] Mckayla lBas NP [address] [place] [address] [facility] Medicine09/20/23Team MemberRelationshipSpecialtyStart DateEnd Date Ty Amin MD [address] [place] [address] PCP - [facility]09/20/23 Mckayla Blas NP [address] [place] [address] [facility]/ Mckayla Blas NP [address] [place] [address] [facility]09/20/23Team MemberRelationshipSpecialtyStart DateEnd Date Ty Amin MD [address] [place] [address] PCP - [facility]09/20/23 Mckayla Blas NP [address] [place] [address] [place] [address]/ Mckayla Blas NP [address] [place] [address] [facility]09/20/23Team MemberRelationshipSpecialtyStart DateEnd Date Ty Amin MD [address] [place] [address] PCP - [facility]09/20/23 Mckayla Blas NP [address] [place] [address] [place] [address]/ Mckayla Blas NP [address] [place] [address] [facility] Medicine09/20/23Team MemberRelationshipSpecialtyStart DateEnd Date Ty Amin MD [address] [place] [address] PCP - [facility] Medicine09/20/23 Mckayla Blas, SILVANO [address] [place] [address] PCP - [facility]/ Mckayla Blas NP [address] [place] [address] [facility]09/20/23Te MemberRelationshipSpecialtyStart DateEnd Date Ty Amin MD [address] [place] [address] PCP - [facility]09/20/23 Mckayla Blas NP [address] [place] [address] PCP [facility]/ Mckayla Blas NP [address] [place] [address] [facility]09/20/23Te MemberRelationshipSpecialtyStart DateEnd Date Ty Amin MD [address] [place] [address] PCP - GeneralFamily Medicine09/20/23 Mckayla Blas NP [address] [place] [address] [facility]09/20/23Team MemberRelationshipSpecialtyStart DateEnd Date Ty Amin MD [address] [place] [address] PCP - Generalmily Medicine09/20/23 Mckayla Blas NP [address] [place] [address] Nurse [facility]20/23Team MemberRelationshipSpecialtyStart DateEnd Date Ty Amin MD [address] [place] [id number] [facility] - [facility]/20/23 Mckayla Blas NP [address] [place] [address] [facility]09/20/23Team MemberRelationshipSpecialtyStart DateEnd Date Ty Amin MD [address] [place] [address] PCP - [facility]09/20/23 Mckayla Blas NP [address] [place] [address] [facility]/23Team MemberRelationshipSpecialtyStart DateEnd Date Ty Amin MD [address] [place] [address] [facility] - [facility]09/20/23 Mckayla Blas NP [address] [place] [phone] [facility] [place]/20/23 Team Status: Active Member Role Status Dates Mckayla Blas [employer]-C Primary Care Provider Active Team Status: Active Member Role Status Dates Mckayla Blas , [employer]-C Primary Care Provider Active Start: March 25, 2025 Price Arora DOAttending ProviderActiveStart: March 25, 2025 Team Status: Active Member Role Status Dates Mckayla Blas [employer]-C Primary Care Provider Active Start: March 26, 2025 Darrell Wellsending ProviderActiveStart: March 26, 2025 Team Status: Inactive Member Role Status Dates Mckayla Blas [employer]-C Primary Care Provider Active Start: April 06, 2025 End: April 06, 2025Mckayla Blas [employer]-CAttending ProviderActiveStart: April 06, 2025 End: April 06, 2025 Team Status: Active Member Role/Relationship Status Dates Mckayla Blas , [employer]-C Primary Care Provider Active Team Status: Active Member Role/Relationship Status Dates Mckayla Blas , [employer]-C Primary Care Provider Active Start: March 25, 2025 Price Arora DOAttbrandee ProviderActiveStart: March 25, 2025 Team Status: Active Member Role/Relationship Status Dates Mckayla Blas , [employer]-C Primary Care Provider Active Start: March 26, 2025 Darrell Wellsending ProviderActiveStart: March 26, 2025 Team Status: Inactive Member Role/Relationship Status Dates Mckayla Blas , [employer]-C Primary Care Provider Active Start: April 06, 2025 End: April 06, 2025Mckayla Blas NP-CAttending ProviderActiveStart: April 06, 2025 End: April 06, 2025 Team Status: Inactive Member Role/Relationship Status Dates Mckayla Blas NP-C Primary Care Provider Active Start: April 29, 2025 End: April 29, 2025Mckayla Blas NP-Louann ProviderActiveStart: April 29, 2025 End: April 29, 2025Team MemberRelationshipSpecialtyStart DateEnd Date Ty Amin MD PCP - [facility]09/20/23 Mckayla Blas NP [address] [place] [phone] PCP - [facility]/ Mckayla Blas NP Nurse [facility]09/20/23Team MemberRelationshipSpecialtyStart DateEnd Date Ty Amin MD [facility] - [facility] Ty Amin MD PCP - [facility]09/20/23 Mckayla Blas NP [address] [place] [phone] PCP - [facility]/ Mckayla Blas NP [facility] [place]09/20/23Team MemberRelationshipSpecialtyStart DateEnd Date Ty Amin MD PCP - [facility]09/20/23 Mckayla Blas NP [address] [address] PCP - [facility]//12/31 Mckayla Blas NP [facility] [place]09/20/23 [...] BE BASED ON THE PRIMARY CLINICAL RECORDS. [employer] provides no warranty or guarantee of the accuracy or completeness of information in this document.
== END 2025-06-08 14:01 | disposition home or self-care (01) ==
LOC: WC 16:17
PROVIDERS: PCP Nurse Practitioner; Visit Provider Physician Assistant
DX: I87.332 Chronic venous hypertension (idiopathic) with ulcer and inflammation of left lower extremity (principal); L97.822 Non-pressure chronic ulcer of other part of left lower leg with fat layer exposed; I87.311 Chronic venous hypertension (idiopathic) with ulcer of right lower extremity; L97.812 Non-pressure chronic ulcer of other part of right lower leg with fat layer exposed
CPT/HCPCS: 29581

== ENCOUNTER 2025-06-17 10:32 | Outpatient (OUT) | payer MEDICARE, SELFPAY ==
--- OUTSIDE RECORDS SUMMARY | 2025-06-17 10:41 | XMS_ITS | CCD ---
Author Organization [facility] Care Team Providers Care Statistician Mathematical Name Role Phone James Benavidez Primary Care Provider JAMES BENAVIDEZ Primary Care Unavailable SHENDGE, VITHAL Admitting Unavailable SHENDGE, VITHAL Attending Unavailable AICHHOLZ, MCKAYLA Primary Care Unavailable AICHHOLZ, MCKAYLA Referring Unavailable AICHHOLZ, MCKAYLA J Primary Care Physician [phone] Tico, Stephanie Unavailable OLE RAMIREZ Attending Unavailable OLE RAMIREZ Consulting Unavailable AICHHOLZ, ELECTRODE CLEANING MACHINE OPERATOR MCKAYLA Primary Care Unavailable OLE RAMIREZ Admitting Unavailable ANTONY SHRESTHA Consulting Unavailable ALONDRA ., JACQUELINE Admitting Unavailable ALONDRA ., JACQUELINE Attending Unavailable AICHHOLZ, ELECTRODE CLEANING MACHINE OPERATOR MCKAYLA Primary Care Unavailable AFSANEH Loera, DR BOLANOS Consulting Unavailable MARYANNE POWER Consulting Unavailable GLENN KERR Consulting Unavailable YOMAIRA KERR Consulting Unavailable HATTIE GOFF Consulting Unavailable ALONDRA ., JACQUELINE Consulting Unavailable TICO, STEPHANIE Attending Unavailable TICO, STEPHANIE Consulting Unavailable AICHHOLZ, ELECTRODE CLEANING MACHINE OPERATOR MCKAYLA Primary Care Unavailable TICO, STEPHANIE Admitting Unavailable REGLA ., DR DUMONT Admitting Unavailable AICHHOLZ, ELECTRODE CLEANING MACHINE OPERATOR MCKAYLA Primary Care Unavailable REGLA ., DR DUMONT Attending Unavailable ARAUZ ., DR DUMONT Consulting Unavailable COLLIN HUERTAS Consulting Unavailable CECILIA KAUFMAN Admitting Unavailable CECILIA KAUFMAN Attending Unavailable AICHHOLZ, ELECTRODE CLEANING MACHINE OPERATOR MCKAYLA Primary Care Unavailable COMFORT PRETTY Attending Unavailable COMFORT PRETTY Admitting Unavailable AICHHOLZ, ELECTRODE CLEANING MACHINE OPERATOR MCKAYLA Primary Care Unavailable AICHHOLZ, ELECTRODE CLEANING MACHINE OPERATOR MCKAYLA Admitting Unavailable AICHHOLZ, ELECTRODE CLEANING MACHINE OPERATOR MCKAYLA Primary Care Unavailable AICHHOLZ, ELECTRODE CLEANING MACHINE OPERATOR MCKAYLA Attending Unavailable AICHHOLZ, ELECTRODE CLEANING MACHINE OPERATOR MCKAYLA Consulting Unavailable LAKSHMIPATHY ., NARENDRANATH Attending Anette vailable LAKSHMIPATHY ., NARENDRANATH Consulting Anette vailable LAKSHMIPATHY ., NARENDRANATH Admitting Anette vailable AICHHOLZ, ELECTRODE CLEANING MACHINE OPERATOR MCKAYLA Primary Care Unavailable VALENZUELA ., GIL Consulting Unavailable MORTENSEN ., DR CHAPARRO Aguillon Attending Unavailable MORTENSEN ., DR CHAPARRO Aguillon Admitting Unavailable AICHHOLZ, ELECTRODE CLEANING MACHINE OPERATOR MCKAYLA Primary Care Unavailable VALENZUELA ., GIL Consulting Unavailable MORTENSEN ., DR CHAPARRO Aguillon Admitting Unavailable AICHHOLZ, ELECTRODE CLEANING MACHINE OPERATOR MCKAYLA Primary Care Unavailable MORTENSEN ., DR CHAPARRO Aguillon Attending Unavailable HALKER ., SUBHASH Consulting Unavailable LAKSHMIPATHY ., NARENDRANATH Admitting Anette vailable LAKSHMIPATHY ., NARENDRANATH Attending Anette vailable AICHHOLZ, ELECTRODE CLEANING MACHINE OPERATOR MCKAYLA Primary Care Unavailable MORTENSEN ., DR CHAPARRO Aguillon Attending Unavailable MORTENSEN ., DR CHAPARRO Aguillon Admitting Unavailable VALENZUELA ., GIL Consulting Unavailable AICHHOLZ, ELECTRODE CLEANING MACHINE OPERATOR MCKAYLA Primary Care Unavailable VALENZUELA ., GIL Consulting Unavailable MORTENSEN ., DR CHAPARRO Aguillon Attending Unavailable MORTENSEN ., DR CHAPARRO Aguillon Admitting Unavailable AICHHOLZ, ELECTRODE CLEANING MACHINE OPERATOR MCKAYLA Primary Care Unavailable HATTIE BRODERICK Attending Unavailable HATTIE BRODERICK Admitting Unavailable AICHHOLZ, ELECTRODE CLEANING MACHINE OPERATOR MCKAYLA Primary Care Unavailable AICHHOLZ, ELECTRODE CLEANING MACHINE OPERATOR MCKAYLA Admitting Unavailable AICHHOLZ, ELECTRODE CLEANING MACHINE OPERATOR MCKAYLA Consulting Unavailable AICHHOLZ, ELECTRODE CLEANING MACHINE OPERATOR MCKAYLA Primary Care Unavailable AICHHOLZ, ELECTRODE CLEANING MACHINE OPERATOR MCKAYLA Attending Unavailable AICHHOLZ, ELECTRODE CLEANING MACHINE OPERATOR MCKAYLA Primary Care Unavailable MISC, DR LESLIE Admitting Unavailable MISC, DR LESLIE Attending Unavailable MISC, DR LESLIE Consulting Unavailable DIAB ., MARIANO Admitting Unavailable DIAB ., MARIANO Attending Unavailable DIAB ., MARIANO Consulting Unavailable AICHHOLZ, ELECTRODE CLEANING MACHINE OPERATOR MCKAYLA Primary Care Unavailable RASTEGAR, RICCO Consulting Unavailable AICHHOLZ, ELECTRODE CLEANING MACHINE OPERATOR MCKAYLA Admitting Unavailable AICHHOLZ, ELECTRODE CLEANING MACHINE OPERATOR MCKAYLA Primary Care Unavailable AICHHOLZ, ELECTRODE CLEANING MACHINE OPERATOR MCKAYLA Attending Unavailable AICHHOLZ, ELECTRODE CLEANING MACHINE OPERATOR MCKAYLA Consulting Unavailable DR PATRICIA VELOZ Consulting Unavailable TAMLYN ., CECILIA Attending Unavailable TAMLYN ., CECILIA Admitting Unavailable DR PATRICIA VELOZ Consulting Unavailable AICHHOLZ, ELECTRODE CLEANING MACHINE OPERATOR MKCAYLA Primary Care Unavailable TAMLYN ., CECILIA Consulting Unavailable MORTENSEN ., DR CHAPARRO Aguillon Attending Unavailable FESTUS ., DR CHAPARRO Aguillon Consulting Unavailable FESTUS ., DR CHAPARRO Aguillon Admitting Unavailable AICHHOLZ, ELECTRODE CLEANING MACHINE OPERATOR MCKAYLA Primary Care Unavailable HATTIE BRODERICK Attending Unavailable HATTIE BRODERICK Consulting Unavailable HATTIE BRODERICK Admitting Unavailable AICHHOLZ, ELECTRODE CLEANING MACHINE OPERATOR MCKAYLA Primary Care Unavailable HATTIE BAUTISTA Unavailable AICHHOLZ, ELECTRODE CLEANING MACHINE OPERATOR MCKAYLA Admitting Unavailable AICHHOLZ, ELECTRODE CLEANING MACHINE OPERATOR MCKAYLA Attending Unavailable AICHHOLZ, ELECTRODE CLEANING MACHINE OPERATOR MCKAYLA Consulting Unavailable AICHHOLZ, ELECTRODE CLEANING MACHINE OPERATOR MCKAYLA Primary Care Unavailable Ty Amin MD Primary Care Provider Ty Aimn MD Primary Care Provider [phone] Aichholz LENDING ACTIVITIES SUPERVISOR, Mckayla Unavailable Aichholz LENDING ACTIVITIES SUPERVISOR, Mckayla Unavailable AICHHOLZ, MCKAYLA Attending Unavailable LIBBY, AHMAD F Attending Unavailable AICHHOLZ, MCKAYLA Attending Unavailable AICHHOLZ, CMKAYLA Attending Unavailable AICHHOLZ, MCKAYLA Attending Unavailable LIBBY, AHMAD F Attending Unavailable AICHHOLZ, MCKAYLA Attending Unavailable LIBBY, AHMAD F Attending Unavailable LIBBY, AHMAD F Referring Unavailable AICHHOLZ, MCKAYLA Attending Unavailable Aichholz LENDING ACTIVITIES SUPERVISOR, Mckayla Unavailable Aichholz LENDING ACTIVITIES SUPERVISOR-C, Mckayla J Primary Care Provider [phone] Price Arora DO Attending Provider [phone] Flynn Urias DPM Attending Provider [phone] Aichholz LENDING ACTIVITIES SUPERVISOR-C, Mckayla J Attending Provider AMI ORO Attending Unavailable DAKOTAH BRIDGES Attending Unavailable Elbert ARAUZ Attending Unavailable GAVIOTA ADAMES Attending Unavailable Ty Amin MD Primary Care Provider [phone] Aichholz LENDING ACTIVITIES SUPERVISOR, Mckayla Unavailable Aichholz LENDING ACTIVITIES SUPERVISOR, Mckayla Unavailable Ty Amin MD Primary Care Provider [phone] Bob AIRCRAFT FUELER-ELECTRODE CLEANING MACHINE OPERATOR, Omero Lovell Attending Unav ailable Aichholz AIRCRAFT FUELER-ELECTRODE CLEANING MACHINE OPERATOR, Mckayla Lennon Primary Care Unava ilable Adonay DPM, Flynn Arzate Attending Unavailab le Adonay DPM, Flynn Arzate Attending Unavailab le Aichholz AIRCRAFT FUELER-ELECTRODE CLEANING MACHINE OPERATOR, Mckayla Lennon Primary Care Unava ilable Adonay DPM, Flynn Arzate Attending Unavailab le Adonay DPM, Flynn Arzate Attending Unavailab le Aichholz AIRCRAFT FUELER-ELECTRODE CLEANING MACHINE OPERATOR, Mckayla Lennon Primary Care Unava ilable Aichholz AIRCRAFT FUELER-ELECTRODE CLEANING MACHINE OPERATOR, Mckayla Lennon Primary Care Unava ilable Adonay DPM, Flynn Arzate Attending Unavailab le Aichholz AIRCRAFT FUELER-ELECTRODE CLEANING MACHINE OPERATOR, Mckayla Lennon Primary Care Unava ilable Bob AIRCRAFT FUELER-ELECTRODE CLEANING MACHINE OPERATOR, Omero Lovell Attending Unav ailable Aichholz AIRCRAFT FUELER-ELECTRODE CLEANING MACHINE OPERATOR, Mckayla Lennon Primary Care Unava ilable Adonay DPM, Flynn Arzate Attending Unavailab le Adonay DPM, Flynn Arzate Attending Unavailab le Bob AIRCRAFT FUELER-ELECTRODE CLEANING MACHINE OPERATOR, Omero Lovell Consulting Unav ailable Aichholz AIRCRAFT FUELER-ELECTRODE CLEANING MACHINE OPERATOR, Mckayla Lennon Primary Care Unava ilable Corinne Kellogg MD Attending Unavail able Bob AIRCRAFT FUELER-ELECTRODE CLEANING MACHINE OPERATOR, Omero Lovell Attending Unav ailable Adonay DPM, Flynn Arzate Referring Unavailab le Allergies Allergy ClassificationReported Allergen(s)Allergy TypeDate of OnsetReaction(s) Facility (1 source)No Known Medication Allergies; Translations: [No Known Medication Allergies]Propensity to adverse reactions (disorder)[facility] Repository Medications Current Medications MedicationDrug Class(es)DatesSig (Normalized)Sig (Original)0.5 ML tirzepatide 30 MG/ML Auto-Injector [Mounjaro] (1 source)Start: 20-68-9010smsgpf 15 mg by subcutaneous injection every week Mounjaro 15 mg/0.5 mL subcutaneous solution INJECT 15MG SUBCUTANEOUSLY ONCE A WEEK Start Date: 06/11/24 Status: Orderedacetaminophen 325 mg / HYDROcodone bitartrate 5 mg oral tablet (20 sources)Opioid AgonistStart: 74-78-5000alvcnqnffzafk-hydrocodone 325 mg-5 mg oral tablet Refill(s) 0 Start Date: 02/06/22 Status: OrderedStart: 12-13-2017 End: 35-46-5736wwmu 1 tablet by mouth every four hoursHydrocodone-Acetaminophen (Glasco) 5-325 mg tablet Discontinued 1 TAB PO Q4H 15 0 December 13, 2017 April 05, 2025 12:52pm Fracture of humerus painStart: 76-91-0691odmr 1 tablet by mouth every four to six hours as needed for painHYDROcodone-acetaminophen (Glasco) 5-325 MG tablet 1 tablet 3 (three) times a day as needed for severe pain. Activetake 1 tablet by mouth twice daily as neededNorco 5-325 MG 1 tablet as needed Orally TWICE A DAY Activealbuterol 0.83 mg/ml inhalation solution (20 sources)beta2-Adrenergic AgonistStart: 99-69-8085mblf 2.5 mg by inhalation every four to six hours as neededStart: 47-15-6131rqdfuvzhs 0.083% Inh Tracey 3 mL Refill(s) 0 [...] oral tablet (20 sources)Tricyclic AntidepressantStart: 02-06-2022 End: 15-27-4686fkax 1 tablet by mouth once daily at bedtimeaspirin 81 mg chewable tablet (20 sources)Platelet Aggregation Inhibitor, Nonsteroidal Anti-inflammatory Drug Start: 11-01-2023 End: 38-08-8045lagq 1 tablet by mouth once dailyaspirin 81 MG chewable tablet Chew 81 mg in the morning. 0 Activebaclofen 10 mg oral tablet (20 sources)gamma-Aminobutyric Acid-ergic AgonistStart: 45-11-7453vwow 1 tablet by mouth every eight hours as neededStart: 33-15-9602iynx 1 tablet by mouth in the morning, then take 1 tablet by mouth in the evening, then take 1 tablet by mouth at bedtimebaclofen (Lioresal) 10 MG tablet Take 10 mg by mouth in the morning and 10 mg in the evening and 10mg before bedtime. 06/24/2024 Lnxrdb17 actuat budesonide 0.16 mg/actuat / formoterol fumarate [...] tablet (20 sources)Histamine-1 Receptor AntagonistStart: 11-01-2023 End: 56-57-5089ijhg 1 tablet by mouth once daily as neededtake 1 tablet by mouth in the morningcetirizine (ZyrTEC) 10 MG tablet Take 10 mg by mouth in the morning. 0 Activedapagliflozin 10 mg oral tablet (20 sources)Sodium-Glucose Cotransporter 2 InhibitorStart: 01-17-2024 End: 92-18-3867nivc 1 tablet by mouth once dailyStart: 08-14-2023 End: 68-60-2446nhjv 1 tablet by mouth in the morningdapagliflozin (Farxiga) 10 MG Indications: Type 2 diabetes mellitus with unspecified complications ( CMS/HCC) Take 1 tablet (10 mg) by mouth in the morning. 90 tablet 1 08/14/2023 11/12/2023 Activediclofenac sodium 75 mg delayed release oral tablet (20 sources)Nonsteroidal Anti-inflammatory DrugStart: 43-65-2369kfxc 1 tablet by mouth twice daily0.5 ML dulaglutide 9 MG/ML Auto-Injector [Trulicity] (4 sources)GLP-1 Receptor AgonistStart: 83-27-4112Rcxwkdesr Pen 4.5 mg/0.5 mL subcutaneous solution Refills(s) [...] sources)Serotonin and Norepinephrine Reuptake InhibitorStart: 11-01-2023 End: 41-66-9766jyoy 1 capsule by mouth twice dailyStart: 07-23-2023 End: 92-25-8202lfoj 1 capsule by mouth in the morningDULoxetine (Cymbalta) [address] capsule Indications: Anxiety and depression (CMS/HCC) Take 1 capsule(60 mg) by mouth in the morning and 1 capsule (60 mg) before bedtime. Do not crush or chew.. 60 capsule 3 07/23/2023 08/22/2023 ActiveStart: 89-42-3054VWFdebbcde 30 mg Cap-EC Refills(s) 0 Start Date: 02/06/22 Status: OrderedDULoxetine 30 mg Cap-EC (2 sources)Start: 23-55-3089ZPThofbaai 30 mg Cap-EC Refills(s) 0 Start Date: 02/06/22 Status: Orderedergocalciferol 1.25 mg oral capsule (20 sources)Provitamin D2 CompoundStart: 57-85-5648Bbbwy: 01-16-2025 End: 60-36-0591pduh 1 capsule by mouth every weekergocalciferol (Vitamin D2) 1.25 MG (21865 UT) capsule Indications: Vitamin D deficiency, unspecified Take 1 capsule (1.25 mg) by mouth 1 (one) time per week 12 capsule 1 01/16/2025 04/10/2025 ActiveStart: 10-27-2024 End: 59-77-7415cdhn 1 capsule by mouth two times weeklyergocalciferol (Vitamin D2) 1.25 MG (51014 UT) capsule Indications: Vitamin D deficiency, unspecified Take 1 capsule (1.25 mg) by mouth 2 (two) times a week 24 capsule 1 10/27/2024 01/19/2025 ActiveStart: 04-06-2024 End: 74-58-7122ekni 1 capsule by mouth every weekergocalciferol (Vitamin D2) 1.25 MG (74102 UT) capsule Indications: Vitamin D deficiency, unspecified TAKE 1 CAPSULE BY MOUTH ONE TIME PER WEEK 12 capsule 1 04/06/2024 10/27/2024 Discontinued (Reorder)fluconazole 150 mg oral tablet (20 sources)Azole AntifungalStart: 08-27-2024 End: 54-29-9290pfdyeahvuuu (Diflucan) 150 MG tablet Indications: Antibiotic- induced yeast infection One time dose,repeat in 3 days . Do not take cholesterol pill while taking this medication. Once finished then resume 2 tablet 1 01/26/2025 ActiveStart: 08-17-2023 End: 77-27-2233kzajofkekhx (Diflucan) 150 MG tablet Indications: Vaginal yeast infection Take 1 tablet (150 mg) bymouth in the morning for 2 days. One time dose, may repeat in 3 days. 2 tablet 1 08/17/2023 08/19/2023 Active End: 02-20-6601zomzreljtzn (Diflucan) 150 MG tablet Take 200 mg by mouth in the morning. 0 08/17/2023 Discontinued(Reorder)furosemide 20 mg oral tablet (20 sources)Loop DiureticStart: 09-22-2024 End: 06-17-5229yslw 1 tablet by mouth once dailyStart: 04-06-2024 End: 26-15-2235qvfz 1 tablet by mouth once dailyfurosemide (Lasix) 40 MG tablet Indications: Bilateral lower extremity edema Take 1 tablet (40 mg) by mouth Daily 90 tablet 1 04/06/2024 ActiveStart: 12-13-2017 End: 95-30-6870rqlt 1 tablet by mouth once daily as [...] oral tablet (20 sources)Arteriolar VasodilatorStart: 09-13-2023 End: 62-88-5659juju 1 tablet by mouth twice dailysodium hypochlorite 2.5 mg/ml topical solution (14 sources)Start: 81-39-9618HzYsxh 0.25 % external solution APPLY TO GAUZE [...] with supper. 0 ActiveNovoLog (5 sources)Insulin AnalogStart: 95-58-0264UnuoMtw SubCutaneous, TIDAC, Refills(s) 0 Start Date: 02/06/22 Status: OrderedNovoLOG 100 UNIT/ML as directed Injection SLIDING SCALE BEFORE EACH MEAL Active3 ml insulin glargine 100 unt/ml pen injector (20 sources)Insulin AnalogStart: 30-80-7565Zyrpw: 28-40-0155jxhpflh glargine (Lantus SoloStar) 100 UNIT/ML pen Indications: Type 2 diabetes mellitus with hyperglycemia, with long-term current use of insulin (HCC) INJECT 58 UNITS SUBCUTANEOUSLY TWICE A DAY 105mL 2 02/16/2025 ActiveStart: 01-29-2025 End: 13-51-1064ytzzos 58 [IU] by subcutaneous injection in the morninginsulin glargine (Lantus) 100 UNIT/ML injection Indications: Type 2 diabetes mellitus with hyperglycemia, with long-term current use of insulin (HCC) Inject 58 Units under the skin in the morning and58 Units before bedtime. 104.4 mL 1 01/29/2025 07/28/2025 ActiveStart: 61-84-0043Wlazju SoloStar 100 UNIT/ML pen 08/26/2024 ActiveStart: 10-30-2023 End: 22-80-5125Onqwdz SoloStar 100 UNIT/ML pen 10/30/2023 04/14/2024 Discontinued (Therapy completed)Start: 84-63-8749Jnomih Solostar Pen 100 units/mL subcutaneous solution Refills(s) 0 Start Date: 02/06/22 Status: Ordered Start: 12-13-2017 End: 02-39-6867xpzduy 50 [IU] by subcutaneous injection twice dailyInsulin Glargine (Lantus U-100 Insulin) 100 unit/mL Solution Discontinued 50 UNIT SUBCUT Twice daily December 13, 2017 12:00am April 05, 2025 12:53pmLantus SoloStar 100 UNIT/ML as directed Subcutaneous 58 UNITS ONCE A DAY Active3 ml insulin lispro 100 unt/ml pen injector (20 sources)Insulin AnalogStart: 10-06-2023 End: 70-68-5350XiccUDB KWIKPEN 100 UNIT/ML injection Inject under the skin 10/06/2023 04/14/2024 Discontinued (Therapy completed)Start: 08-60-7156xvkmvs 1 [IU] by subcutaneous injection before mealtimeInsulin [...] lactate 120 mg/ml topical lotion (20 sources)Start: 53-42-1367Saafx: 76-20-7871hlyzkqci lactate (Lac-Hydrin) 12 % lotion 07/22/2024 ActiveStart: 82-48-7595hovsanfm lactate (Lac-Hydrin) 12 % lotion APPLY TO BILATERAL FEET EVERY DAY 07/22/2024 Activelisinopril 20 mg oral tablet (20 sources)Angiotensin Converting Enzyme InhibitorStart: 02-06-2022 End: 25-79-0844iief 1 tablet by mouth once dailymeloxicam (5 sources)Nonsteroidal Anti-inflammatory DrugStart: 95-95-5592tnwjdlkui Daily, Refills(s) 0 Start Date: 02/06/22 Status: Orderedtake 1 tablet by mouth every twenty-four hoursMeloxicam 7.5 MG 1 tablet Orally Once a day ActivemetFORMIN hydrochloride 1000 mg oral tablet (1 source)Biguanidetake 1 tablet by mouth twice daily at mealtimemetFORMIN (GLUCOPHAGE) 1000 MG tablet Take 1,000 mg by mouth 2 times daily (with meals). 0 ActiveMounjaro 10 MG/0.5ML solution pen-injector (4 sources)Start: 10-22-2023 End: 98-08-5819kgbjra 10 mg by subcutaneous injection every weekMounjaro 10 MG/0.5ML solution pen-injector INJECT 10MG SUBCUTANEOUSLY ONCE A WEEK 10/22/2023 04/14/2024 Discontinued (Therapy completed)Start: 82-94-0206sacjnu 10 mg by subcutaneous injection every weekMounjaro 10 MG/0.5ML solution pen-injector INJECT 10MG SUBCUTANEOUSLY ONCE A WEEK 10/22/2023 ActiveMounjaro 15 MG/0.5ML solution auto-injector (8 sources)Start: 43-11-0785Prcowhiq 15 MG/0.5ML solution auto-injector Inject 15 mg as directed every 7 (seven) days 02/18/2024 Activenaloxone hydrochloride 40 mg/ml nasal spray (20 sources)Opioid AntagonistStart: 00-16-7939Rware: 44-28-6526znghxajj (Narcan) 4 mg/0.1 mL nasal spray Administer 4 mg into affected nostril(s) if needed 07/04/2024 Xmoaaq00 hr nicotine 0.875 mg/hr transdermal system (20 sources)Cholinergic Nicotinic AgonistStart: 07-14-2024 End: 48-99-9491xosflcxd (Nicoderm, Step 1) 21 MG/24HR patch Indications: [...] capsule (20 sources)Proton Pump InhibitorStart: 12-25-2023 End: 22-47-8727mpqp 1 capsule by mouth once dailytake 1 capsule by mouth before mealtimeomeprazole (PriLOSEC) [address] capsule Take 20 mg by mouth in the morning. Take before meals. Do not crush or chew. . 0 ActiveOxygen (20 sources)oxygen (O2) gas Inhale 2 L/min continuously via nasal canula Active potassium chloride 10 meq extended release oral tablet (20 sources)Start: 60-38-3529Upmfp: 02-06-2022 End: 43-22-7817celo 1 capsule by mouth once daily in the morningpotassium chloride ER (Micro-K) 10 MEQ ER capsule Indications: Bilateral lower extremity edema Take1 capsule (10 mEq) by mouth Daily Take 1 capsule (10 mEq) by mouth in the morning. 90 capsule 1 01/26/2025 04/26/2025 ActiveStart: 12-13-2017 End: 40-22-2581Cbyqueqty Chloride (Klor-Con 10) 10 mEq Tablet Extended Release Discontinued 10 MEQ PO Twice daily December 13, 2017 12:00am April 05, 2025 12:56pmtake 1 tablet by mouth every twenty-four hoursPotassium Chloride ER 10 MEQ 1 tablet with food Orally Once a day ActivepredniSONE 10 mg oral tablet (11 sources)Start: 30-06-0375lqbfuhOGLI (Deltasone) 10 MG tablet 4 TABS X3 DAYS, 3TABS X3 DAYS, 2 TABS X3 DAYS, 1 TAB X3 DAYS, 1/2 TAB X4 DAYS 12/05/2024 Active pregabalin 150 mg oral capsule (20 sources)Start: 75-15-8494weqh 1 capsule by mouth once dailyStart: 08-13-2024 take 1 capsule by mouth once dailypregabalin (Lyrica) 150 MG capsule Take 150 mg by mouth Daily 08/13/2024 ActiveStart: 55-85-8303Cwsolk Oral, Refills(s) 0 Start Date: 02/06/22 Status: OrderedStart: 12-13-2017 End: 33-59-8178borv 1 capsule by mouth in the morningpregabalin (Lyrica) 300 MG capsule Indications: Diabetic polyneuropathy associated with type 2 diabetes mellitus (HCC) Take 1 capsule (300 mg) by mouth in the morning and 1 capsule (300 mg) before bedtime. 60 capsule 5 04/14/2024 Activeroflumilast 0.5 mg oral tablet (20 sources)Phosphodiesterase 4 InhibitorStart: 01-04-2024 End: 95-70-8425szym 1 tablet by mouth once dailysimvastatin 10 mg oral tablet (20 sources)HMG-CoA Reductase InhibitorStart: 12-19-2024 End: 41-84-1863dahj 1 tablet by mouth once daily at bedtimeStart: 04-06-2024 End: 34-01-4407pxnj 1 tablet by mouth at bedtimesimvastatin (Zocor) 10 MG tablet Indications: Hyperlipidemia, unspecified (CMS/HCC) Take 1 tablet (10 mg) by mouth at bedtime 90 tablet 1 08/27/2024 ActiveStart: 06-15-2023 End: 31-56-4376fyhe 1 tablet by mouth in the morningsimvastatin (Zocor) 10 MG tablet Indications: Hyperlipidemia, unspecified (CMS/HCC) Take 1 tablet (10 mg) by mouth in the morning. 90 tablet 1 06/15/2023 09/13/2023 ActiveStart: 12-13-2017 End: 58-18-9738fecu 1 tablet by mouth once daily in the eveningSimvastatin 20 mg Tablet Discontinued 20 MG PO Every evening December 13, 2017 12:00am March 1:00pmsulfamethoxazole 800 mg / trimethoprim 160 mg oral tablet (15 sources)Dihydrofolate Reductase Inhibitor Antibacterial, Sulfonamide AntimicrobialStart: 95-17-6685kpke 1 tablet by mouth twice daily sulfamethoxazole-trimethoprim (Bactrim DS) 800-160 MG per tablet TAKE 1 TABLET BY MOUTH TWICE A DAYFOR 14 DAYS 01/14/2025 ActiveStart: 08-27-2024 End: 15-14-3190qhbvljpuxwtqbjxn-trimethoprim (Bactrim DS) 800-160 MG per tablet 08/27/2024 10/27/2024 Discontinued(Therapy completed)Symbicort 160/4.5 inhalation aerosol with adapter (3 sources)Start: 08-71-7206Bhqamrsxg 160/4.5 inhalation aerosol with adapter Refill(s) 0 Start Date: 02/06/22 Status: Jxsdfbz02 actuat tiotropium 0.0025 mg/actuat inhalation spray (7 sources)AnticholinergicStart: 17-60-6303Yklshxa Respimat 60 ACT 2.5 mcg/inh inhalation aerosol Refills(s) 0 Start Date: 02/06/22 Status: Orderedtake 2 puff(s) by inhalation in the morningtiotropium (Spiriva Respimat) 2.5 MCG/ACT inhaler Inhale 2 puffs in the morning. 0 Activetake 2 puff(s) by inhalation twice daily Spiriva Respimat 2.5 MCG/ACT 2 puffs Inhalation TWICE A DAY ActiveTirzepatide (2 sources)Start: 30-45-1661Xxtazshzqgx (Mounjaro) 15 MG/0.5ML solution auto-injector (20 sources)Start: 10-95-3723vvfkoc 15 mg by subcutaneous injection every week Tirzepatide (Mounjaro) 15 MG/0.5ML solution auto-injector Indications: Type 2 diabetes mellitus with other circulatory complications (HCC) Inject 15 mg under the skin 1 (one) time per week 6 mL 1 02/27/2025 ActiveStart: 13-68-6970arzkiu 15 mg by subcutaneous injection every weekTirzepatide (Mounjaro) 15 MG/0.5ML solution auto-injector Indications: Type 2 diabetes mellitus with other circulatory complications (HCC) INJECT 15MG SUBCUTANEOUSLY ONCE A WEEK 6 mL 1 07/07/2024 ActiveStart: 36-67-4009jzskca 15 mg by subcutaneous injection every weekTirzepatide (Mounjaro) 15 MG/0.5ML solution auto-injector Indications: Type 2 diabetes mellitus with other circulatory complications INJECT 15MG SUBCUTANEOUSLY ONCE A WEEK 6 mL 1 07/07/2024 ActiveStart: 62-92-2655pplccq 15 mg by subcutaneous injection every weekTirzepatide [...] oral tablet (20 sources)Partial Cholinergic Nicotinic AgonistStart: 05-93-3447hnye 1 tablet by mouth twice dailyStart: 12-19-2024 End: 82-77-5668snwo 1 tablet by mouth in the morningvarenicline (Chantix) 1 MG tablet Indications: Tobacco user , Encounter for smoking cessation counseling TAKE 1 TABLET BY MOUTH IN THE MORNING AND 1 TABLET BEFORE BEDTIME. TAKE WITH FULL GLASS OF WATER. 60 tablet 1 03/09/2025 ActiveStart: 08-27-2024 End: 51-95-3711teay 1 tablet by mouth in the morningvarenicline (Chantix) 1 MG tablet Indications: Tobacco user , Encounter for smoking cessation counseling Take 1 tablet (1 mg) by mouth in the morning and 1 tablet (1 mg) before bedtime. Take with full glass of water.. 60 tablet 1 08/27/2024 ActiveStart: 12-05-2023 End: 47-73-7066Zrtbpkbxgqh Tartrate, Starter, 0.5 MG X 11 & 1 MG X 42 tablet therapy [facility]/2023 07/14/2024 Discontinued (Therapy completed)Start: 79-12-4135Jvybrkeefvs Tartrate, Starter, 0.5 MG X 11 & 1 MG X 42 tablet therapy pack [facility]/05/2023 Active Completed/Discontinued Medications MedicationDrug Class(es)DatesSig (Normalized)Sig (Original)amoxicillin 875 mg / clavulanate 125 mg oral tablet (6 sources)Penicillin-class AntibacterialStart: 12-05-2024 End: 76-08-1771hhoa 1 tablet by mouth every twelve hoursamoxicillin-clavulanate (Augmentin) 875-125 MG tablet Take 1 tablet by mouth every 12 (twelve) hours 12/05/2024 01/26/2025 Discontinued (Therapy completed)cephalexin 500 mg oral capsule (9 sources)Cephalosporin AntibacterialStart: 2024 End: 34-74-4169adomworbgf (Keflex) 500 MG capsule 2024 10/27/2024 Discontinued (Therapy completed)Glucose Blood (ACCU-CHEK JAQUI PLUS ) (14 sources) End: 24-04-1499Pekdifb Blood (ACCU-CHEK JAQUI PLUS ) 4 (four) times a day. 07/14/2024 Discontinued (Therapy completed)Glucose Blood (ACCU-CHEK JAQUI PLUS ) 4 (four) times a day. ActiveGlucose Blood (ACCU-CHEK JAQUI PLUS ) 4 (four) times a day. 0 Active3 ml liraglutide 6 mg/ml pen injector (6 sources)GLP-1 Receptor Agonist End: 78-74-6412ldaggwvepeh (Victoza) 18 MG/3ML injection Inject under the skin Daily 07/14/2024 Discontinued (Therapy completed)naproxen 500 mg oral tablet (2 sources)Nonsteroidal Anti-inflammatory DrugStart: 12-13-2017 End: 36-73-9975nfvc 1 tablet by mouth twice daily at mealtimeNaproxen 500 mg tablet Discontinued 500 MG PO Twice daily 20 0 December 13, 2017 12:00am April 05, 2025 12:53pm administer with food or milknortriptyline 50 mg oral capsule (18 sources)Tricyclic AntidepressantStart: 12-13-2017 End: 02-04-3370nafq 1 capsule by mouth once daily at bedtimeNortriptyline 50 mg Capsule Discontinued 50 MG PO Daily at bedtime December 13, 2017 12:00am April 05, 2025 12:53pmubrogepant 100 mg oral tablet (12 sources) End: 78-71-7463zvkr 1 tablet by mouth every twenty-four hours as needed Ubrogepant (Ubrelvy) 100 MG tablet Take 100 mg by mouth Daily as needed 07/14/2024 Discontinued (Therapy completed) Problems Active Problems Problem ClassificationProblemDateDocumented DateEpisodic/ChronicAbdominal pain (6 sources)Left flank pain; Translations: [Lower abdominal pain, unspecified] Onset: 562597-90-0422OdkdmwnzZwkvcnfe foot deformities (1 source)Other hammer toe(s) (acquired), right foot; Translations: [OTHER HAMMER TOES ACQUIRED RT FOOT]Onset: 70-90-0485ImsxxjaVudiqrpd foot deformities (1 source)Other hammer toe(s) (acquired), left foot; Translations: [OTHER HAMMER TOES ACQUIRED LT FOOT]Onset: 39-38-3494PjjpocmYtpfbaw disorders (20 sources)Mixed anxiety and depressive disorder; Translations: [Anxiety disorder, unspecified]Onset: 991172-24-6955YypjlhvOiouam (20 sources)Asthma; Translations: [Unspecified asthma, uncomplicated]Onset: 845712-74-2115TrmfwimOcusta of cervix (20 sources)Malignant tumor of cervix; Translations: [Malignant neoplasm of cervix uteri, unspecified]Onset: 693937-33-1039LyogpudRleoqa of cervix (2 sources)History of malignant neoplasm of cervix; Translations: [Personal history of malignant neoplasm of cervix uteri]34-94-5605VwymdmxxSviwuvs kidney disease (5 sources)Chronic kidney disease; Translations: [Chronic kidney disease, unspecified]Onset: 02-20-2022 Resolved: 77-56-2805MicxdvyCbgrpgr obstructive pulmonary disease and bronchiectasis (20 sources)Pulmonary emphysema; Translations: [Chronic obstructive pulmonary disease with (acute) exacerbation]Onset: 297215-12-3543SxqqkmjIdlufsc ulcer of skin (20 sources)Non-pressure chronic ulcer of other part of right lower leg limited to breakdown of skin; Translations: [Non-pressure chronic ulcer of other part of left lower leg limited to breakdown of skin]Onset: 931834-72-1592Uwhsfrw Congestive heart failure; nonhypertensive (20 sources)Chronic diastolic heart failure; Translations: [Chronic diastolic (congestive) heart failure]Onset: 379629-11-3147MogcjxkLytnwdvj mellitus with complications (20 sources)Disorder of kidney due to diabetes mellitus; Translations: [Type 2 diabetes mellitus with diabetic chronic kidney disease]Onset: 02-20-2022 Resolved: 83-63-1476GazicxcKgcsflic mellitus without complication (13 sources)Type 2 diabetes mellitus; Translations: [Type 2 diabetes mellitus without complications]Onset: 936058-21-4121VqjbywhNvbdmptwj of lipid metabolism (20 sources)Pure hypercholesterolemia, unspecified; Translations: [Hyperlipidemia, unspecified]Onset: 863862-76-8751OqdcttnBywfexhwtb disorders (20 sources)Gastro-esophageal reflux disease without esophagitis; Translations: [Gastroesophageal reflux disease]Onset: 12-05-2022 Resolved: 527846-93-0141HutfprmHunhjtdlo hypertension (20 sources)Hypertensive disorder; Translations: [Essential (primary) hypertension]Onset: 508506-47-4025CdothtoSnyjvhvnbllnn symptoms and ill- defined conditions (20 sources)Mixed incontinence; Translations: [Incontinence]Onset: 02-06-2022 ChronicGout and other crystal arthropathies (20 sources)Gout; Translations: [Gout, unspecified]Onset: ChronicHypertension with complications and secondary hypertension (5 sources)Chronic kidney disease due to hypertension; Translations: [Hypertensive chronic kidney disease withstage 1 through stage 4 chronic kidney disease, or unspecified chronic kidney disease]Onset: 02-20-2022 Resolved: 47-06-8927LgofpbvPocd disorders (1 source)Major depressive disorder, single episode, unspecified; Translations: [ANASTACIO DEPRESS D/O SINGLE EPIS UNS]Onset: 66-29-3021GvulaysExcyvmsmtdilv gastroenteritis (1 source)Noninfective gastroenteritis and colitis, unspecified; Translations: [NONINFECTIVE GE AND COLITIS UNS]Onset: 24-47-7273GchprgknWmgucfjhicr deficiencies (20 sources)Vitamin D deficiency; Translations: [Vitamin D deficiency, unspecified]Onset: 339608-17-9444CgbwcduZtpxuyntcttdrq (20 sources)Arthritis; Translations: [Unspecified osteoarthritis, unspecified site]Onset: 039839-06-8546XpltcgxGrfxo aftercare (1 source)Other nursing home (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 therapy; Translations: [OTH HALF-WAY CURRENT DRUG THERAPY]Onset: 52-18-4266JdhybyvzQjhkk aftercare (1 source)MCFP (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; Translations: [HALF-WAY CURRENT USE OF ASPIRIN]Onset: 24-78-2559WvkyzsykQmqoy aftercare (6 sources)Long-term current use of insulin; Translations: [MCFP (current) use of insulin]41-77-2414SuuxvpgrGirlk and ill-defined heart disease (20 sources)Cardiomegaly; Translations: [Cardiomegaly]Onset: 10-25-2017 54-29-2699RlyudviXsisw and ill-defined heart disease (1 source)Cardiomegaly; Translations: [Cardiomegaly]Onset: 70-44-6411Dpexxab Other and unspecified benign neoplasm (1 source)Benign lipomatous tumor; Translations: [Benign lipomatous neoplasm of other sites]Onset: 64-47-3237AwvnzclpQvqvg bone disease and musculoskeletal deformities (1 source)Acquired absence of other left toe(s); Translations: [ACQUIRED ABSENCE OF OTHER LEFT TOES]Onset: 39-68-1130WhdfkljhWeqzb diseases of kidney and ureters (1 source)Urinary tract obstruction; Translations: [Other obstructive and reflux uropathy]Onset: 92-84-7137KmqvmljlOezoc diseases of veins and lymphatics (1 source)Chronic venous hypertension (idiopathic) with ulcer and inflammation of bilateral lower extremity; Translations: [CHRN KEO HTN ULCR INFLAM ALEX LW EXT]Onset: 78-34-4686QnsnhnoAkzmm diseases of veins and lymphatics (1 source)Chronic venous hypertension (idiopathic) with ulcer of left lower extremity; Translations: [CHRON VENOUS HTN W/ULCER LT LW EXT]Onset: 09-01-2022 ChronicOther diseases of veins and lymphatics (1 source)Lymphedema, not elsewhere classified; Translations: [LYMPHEDEMA NOT ELSEWHERE CLASSIFIED]Onset: 43-09-7764BtmbmirJqsvr diseases of veins and lymphatics (5 sources)Chronic peripheral venous hypertension with lower extremity complication; Translations: [Chronic venous hypertension (idiopathic) with ulcer of bilateral lower extremity]Onset: 386151-84-0448BntbfxeYjyjo diseases of veins and lymphatics (20 sources)Chronic peripheral venous hypertension; Translations: [Chronic venous hypertension (idiopathic) with ulcer of bilateral lower extremity]Onset: 935156-10-8156XqilmnzGxsvc diseases of veins and lymphatics (18 sources)Stasis dermatitis and venous ulcer of right lower extremity due to chronic peripheral venous hypertension; Translations: [Chronic venous hypertension (idiopathic) with ulcer and inflammation of rightlower extremity] Onset: 847009-24-8162ShzgwnfEikmi endocrine disorders (2 sources)Disorder of adrenal gland; Translations: [Other specified disorders of adrenal gland]Onset: 11-50-4792FhjalyzHpvwt endocrine disorders (20 sources)Adrenal mass; Translations: [Disorder of adrenal gland, unspecified] Onset: 603163-43-3273AhadqdlHdwrv endocrine disorders (2 sources)Disorder of adrenal gland, unspecifiedOnset: 02-20-2022 Resolved: 72-27-8690AutomtdIunrx endocrine disorders (5 sources)Other specified disorders of adrenal gland; Translations: [OTHER SPEC DISORDERS ADRENAL GLAND]Onset: 71-77-8778PgfqkukXxfyu gastrointestinal disorders (3 sources)Adrenal lkxc01-30-1978FlcxnboeHtrot lower respiratory disease (1 source)Hypoxemia; Translations: [HYPOXEMIA]Onset: 61-66-3919MtnqkbsfEloyw nervous system disorders (5 sources)Chronic pain syndrome; Translations: [CHRONIC PAIN SYNDROME]Onset: 24-98-4782KqtcqxfBabvk nervous system disorders (1 source)Other chronic pain; Translations: [OTHER CHRONIC PAIN]Onset: 17-16-2947MrptwdyNhaiu non-traumatic joint disorders (4 sources)Pain in right hip; Translations: [PAIN IN RIGHT HIP]Onset: 04-27-2022 EpisodicOther nutritional; endocrine; and metabolic disorders (2 sources)Localized adiposity; Translations: [Localized adiposity]ChronicOther nutritional; endocrine; and metabolic disorders (20 sources)Body mass index 40+ - severely obese; Translations: [Body mass index (BMI) 50.0-59.9, adult]Onset: 836074-81-8411WeizkiqWvhfh nutritional; endocrine; and metabolic disorders (3 sources)Body mass index (BMI) 50.0-59.9, adult; Translations: [BODY MASS INDEX BMI 50.0-59.9 ADULT]Onset: 48-28-5397LhzhnxlWnwye nutritional; endocrine; and metabolic disorders (3 sources)Morbid (severe) obesity due to excess calories; Translations: [MORBID SEVERE OBES D/T EXCESS NHI]Onset: 62-68-6839BquueeuVxaur nutritional; endocrine; and metabolic disorders (1 source)Obesity, unspecified; Translations: [OBESITY UNSPECIFIED]Onset: 90-72-8132BiluhbnAbftp nutritional; endocrine; and metabolic disorders (20 sources)Obesity caused by energy imbalance; Translations: [Morbid (severe) obesity due to excess calories]Onset: 169763-36-2774CozfqsoTgieb screening for suspected conditions (not mental disorders or infectious disease) (1 source)Encounter for screening mammogram for malignant neoplasm of breast; Translations: [ENC SCR MAMMO MALIG NEOPLASM BREAST]Onset: 61-89-7694Sfhhqbxj Other skin disorders (2 sources)Bilateral localized swelling of lower legs; Translations: [Localized swelling, mass and lump, lowerlimb, bilateral]59-00-1682ZnewhjpaPxopr upper respiratory disease (20 sources)Allergic rhinitis; Translations: [Other allergic rhinitis]Onset: 242895-08-5795RzcevpmHpdthyaooy and visceral atherosclerosis (20 sources)Peripheral vascular disease, unspecified; Translations: [Peripheral vascular disease, unspecified]Onset: 280354-02-7131MeyrhpvDbaupgniz heart disease (20 sources)Pulmonary hypertension; Translations: [Pulmonary hypertension, unspecified]Onset: 311213-80-0908WdjiqcuMjsipgnv codes; unclassified (3 sources)Obstructive sleep apnea (adult) (pediatric); Translations: [OBSTRUCTIVE SLEEP APNEA]Onset: 03-88-5189GgdlzixOhaxtnmi codes; unclassified (20 sources)Obstructive sleep apnea syndrome; Translations: [Obstructive sleep apnea (adult) (pediatric)]Onset: 548486-34-4798CyizvdhXrrpgcgr codes; unclassified (1 source)Acquired absence of other specified parts of digestive tract; Translations: [ACQ ABSENCE OTH PART DIGESTV TRACT]Onset: 72-23-5319Iiymdnnp Residual codes; unclassified (1 source)Acquired absence of both cervix and uterus; Translations: [ACQUIRED ABSENCE BOTH CERVIX AND UTERUS]Onset: 56-81-3785AlevehlzXyxkefpc codes; unclassified (1 source)Family history of malignant neoplasm of ovary; Translations: [FAM HX MALIGNANT NEOPLASM OVARY]Onset: 15-45-0244SgjxkqsjIkbrfrip codes; unclassified (1 source)Family history of malignant neoplasm, unspecified; Translations: [FAM HX MALIGNANT NEOPLASM UNS]Onset: 73-08-8844AokdrpybFcaogkbvh-related disorders (20 sources)Nicotine dependence; Translations: [Nicotine dependence, unspecified, uncomplicated]Onset: 05-63-8469BgibvceRgzhgbd on above:Added secondary to documentation in Social History.Unclassified (1 source)HALF-WAY INJECT NONINSULN ANTIDIAB; Translations: [HALF-WAY INJECT NONINSULN ANTIDIAB]Onset: 42-55-9356Ycjqfldtliqd (3 sources)CONTACT W/AND (SUSP) EXPOS COVID-19; Translations: [CONTACT W/AND (SUSP) EXPOS COVID-19]Onset: 26-60-9200Dunjijmodryl (3 sources)LOW BACK PAIN, UNSPECIFIED; Translations: [LOW BACK PAIN, UNSPECIFIED]Onset: 95-64-9170Nyyjxeafyqby (1 source)Obesity, class 3; Translations: [Obesity, class 3]Onset: 11-14-2023 Viral infection (1 source)COVID-19; Translations: [COVID-19]Onset: 09-29-2022 Past or Other Problems Problem ClassificationProblemDateDocumented DateEpisodic/ChronicAcquired foot deformities (1 source)Other deformities of toe(s) (acquired), left foot; Translations: [OTHER DEFORMITIES TOES ACQ LT FOOT]Onset: 54-77-0472Kwzkkkef Administrative/social admission (20 sources)Patient encounter status; Translations: [Dietary counseling and surveillance]Onset: 084578-84-6567UjckvorlZqyoypqk of urinary tract (20 sources)Kidney stone; Translations: [Calculus of kidney]Onset: 02-06-2022 EpisodicE Codes: Natural/environment (1 source)Other and unspecified overexertion or strenuous movements or postures, initial encounter; Translations: [OTH AND UNS OVREXRT/STRN MVMT/POS INT]Onset: 79-10-1488SiksnlccNyddi of unknown origin (18 sources)Fever; Translations: [Fever, unspecified]Onset: EpisodicGenitourinary symptoms and ill-defined conditions (20 sources)Proteinuria; Translations: [Proteinuria, unspecified]Onset: 02-06-2022 Resolved: 13-22-2734OmfomutkNdjumaoh; including migraine (20 sources)Headache; Translations: [Headache disorder]Onset: 01-17-2024 91-92-9135IebjztusYrlfauloecfuy and screening for infectious disease (20 sources)Encounter for screening for other infectious and parasitic diseases; Translations: [Anti-nuclear factor positive]Onset: 507942-50-5418Dzvqfifm Mood disorders (20 sources)Mood disorders; Translations: [DEPRESSION UNSPECIFIED]Onset: 638789-35-4338Edvdvqd (20 sources)Tinea unguium; Translations: [Candidiasis of vagina]Onset: 51-31-6713UumihhkuFhwequzeyab deficiencies (20 sources)Vitamin deficiency; Translations: [Vitamin deficiency, unspecified] Onset: 913597-83-7386ChiljvfzEhojz aftercare (3 sources)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; Translations: [CHIMNEY BUILDER CURRENT USE OF INSULIN]Onset: 47-13-1072VghfwsseCwstl aftercare (20 sources)Long-term current use of inhaled steroid; Translations: [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 (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) use of inhaled steroids]Onset: 160276-70-2111SfdioemuAfujw and unspecified benign neoplasm (20 sources)Myelolipoma of adrenal gland; Translations: [Benign lipomatous neoplasm of other sites]Onset: 942195-72-6092WnofvchhEepwe connective tissue disease (4 sources)Other muscle spasm; Translations: [OTHER MUSCLE SPASM]Onset: 26-00-3857YphvmxmnRwryg diseases of veins and lymphatics (20 sources)Vascular insufficiency; Translations: [Venous insufficiency (chronic) (peripheral)]Onset: 717563-62-3035VnfqmhtqHisib diseases of veins and lymphatics (2 sources)Venous insufficiency (chronic) (peripheral); Translations: [Venous insufficiency (chronic) (peripheral)]Onset: 85-41-7927TafenhmgLsxhr hematologic conditions (1 source)Secondary polycythemiaOnset: 03-08-2022 Resolved: 52-66-3791JgvcjnjtSftqk nervous system disorders (20 sources)Reduced mobility; Translations: [Other abnormalities of gait and mobility]Onset: 391579-12-8599BimpswshBenfv non-traumatic joint disorders (1 source)Effusion, left knee; Translations: [EFFUSION LEFT KNEE]Onset: 77-50-9517TtehcxkyNyoyg non-traumatic joint disorders (1 source)Pain in left knee; Translations: [PAIN IN LEFT KNEE]Onset: 07-26-2022 EpisodicOther non-traumatic joint disorders (20 sources)Pain in right knee; Translations: [Pain in joint, lower leg]Onset: 283495-85-8772LfdxyssfUsarg nutritional; endocrine; and metabolic disorders (20 sources)Severe obesity; Translations: [Morbid (severe) obesity due to excess calories]Onset: 07-10-2023 Resolved: 244997-73-8819IytmxbiWyxbr nutritional; endocrine; and metabolic disorders (20 sources)Excess panniculus of abdomen; Translations: [Localized adiposity] Onset: 10-25-2017 Resolved: 748898-32-6181KqhvayuMlmhj skin disorders (1 source)Nail dystrophy; Translations: [NAIL DYSTROPHY]Onset: 09-01-2022 EpisodicOther skin disorders (1 source)Corns and callosities; Translations: [CORNS AND CALLOSITIES]Onset: 75-33-1198WbpcurszWluol skin disorders (1 source)Xerosis cutis; Translations: [XEROSIS CUTIS]Onset: 70-55-6642Izhximri Other skin disorders (20 sources)Hyperpigmentation of skin; Translations: [Disorder of pigmentation, unspecified]Onset: 752497-89-2916TpgmcnjyOmjmjq media and related conditions (20 sources)Acute suppurative otitis media without spontaneous rupture of ear drum; Translations: [Acute suppurative otitis media without spontaneous rupture of ear drum, left ear]Onset: 01-17-2024 Resolved: 035395-53-3967UorboxtsIdododlipt disorders (not diabetes) (20 sources)Acute pancreatitis without necrosis or infection, unspecified; Translations: [Pancreatitis]Onset: 125512-18-0615CdzxablbNgjdrgauq (except that caused by tuberculosis or sexually transmitted disease) (20 sources)Pneumonia; Translations: [Pneumonia, unspecified organism]Onset: 09-17-2023 Resolved: 991735-76-1065CoiudzoyPrnijfpa codes; unclassified (3 sources)Localized edema; Translations: [LOCALIZED EDEMA]Onset: 09-01-2022 EpisodicResidual codes; unclassified (20 sources)Edema; Translations: [Edema, unspecified]Onset: 07-10-2023 Resolved: 319519-47-0767OtdakaxxBdvxpywf codes; unclassified (20 sources)Bilateral lower limb edema; Translations: [Localized edema]Onset: 351768-81-1978HsdoaardReuxircw codes; unclassified (20 sources)Insomnia; Translations: [Insomnia, unspecified]Onset: 09-17-2023 53-41-9923ZidcuhtmAyynjimw codes; unclassified (20 sources)Tobacco user; Translations: [Tobacco use]Onset: 09-17-2023 Resolved: 406933-89-8972StkybhkmNpgmsbgo codes; unclassified (20 sources)Edema of lower extremity; Translations: [Localized edema]Onset: 09-17-2023 Resolved: 780066-45-3189DshxfektItrd and subcutaneous tissue infections (20 sources)Cellulitis of right lower limb; Translations: [Cutaneous abscess of left axilla]Onset: 68-63-4249GvtufikcMtpppldyody; intervertebral disc disorders; other back problems (20 sources)Lumbar radiculopathy; Translations: [Radiculopathy, lumbar region] Onset: 290330-66-1166PakykvscXbeuawi and strains (1 source)Strain of muscle, fascia and tendon of lower back, initial encounter; Translations: [STRAIN MUSC FASC TENDON LW BACK INT]Onset: 44-14-6551Pmvtpnzm Unclassified (1 source)CONTACT W/AND (SUSP) EXPOS COVID-19; Translations: [CONTACT W/AND (SUSP) EXPOS COVID-19]Onset: 99-53-9789Wfpllozrqjyd (1 source)LOW BACK PAIN, UNSPECIFIED; Translations: [LOW BACK PAIN, UNSPECIFIED] Onset: 55-95-8215Almfmylytpsu (4 sources)Patient encounter aabtco27-22-7465Uzpiofgmppru (1 source)Obesity, class 3; Translations: [Obesity, class 3]Onset: 08-08-2024 Varicose veins of lower extremity (20 sources)Varicose veins of right lower extremity with ulcer of unspecified site; Translations: [Varicose veins of lower extremities with ulcer]Onset: 06-19-2024 Resolved: 334009-81-3303Qqqsyhvg Results Test NameValueInterpretationReference RangeFacility.eGFRon 79-17-1245WNA/1.73 sq M.predicted MDRD (S/P/Bld) [Vol rate/Area]mL/min/{1.73_m2}Normal>=60BlUniversity Hospitals Cleveland Medical CenterComment on above:Result Comment: [facility] have implemented the eGFR calculation [...] Age = yearsPerformed By: #### EGFR #### [address] [address]TSQ w/ Diffon 65-35-8813Kruhciahjgs distribution width (RBC) [Ratio]20.0 %High11.6-14.8BPomerene HospitalComment on above: Performed By: #### CBC #### [address] [address]Gpmowojbtd (Bld) [Volume fraction]53.8 %High36.0-46.0[facility] HospitalComment on above:Performed By: #### CBC #### [address] [address]Ylixhbgybp (Bld) [Mass/Vol]17.7 g/aQKnwp49.0-16.0[facility] HospitalComment on above:Performed By: #### CBC #### [address] [address]QEQ (RBC) [Entitic mass]27.1 hdRvxpdr85.0-35.0[facility] HospitalComment on above:Performed By: #### CBC #### [address] [address]OABI96.9 %Qonhdf09.0-37.0[facility] HospitalComment on above:Performed By: #### CBC #### [address] [address]MTO (RBC) [Entitic vol]82.2 mKXqyouf50.0-100.0[facility] HospitalComment on above:Performed By: #### CBC #### [address] [address]Eqbsrvfq125 x10*3/sdRZou476-918XfeqypdbzElyria Memorial Hospital Comment on above:Performed By: #### CBC #### [address] [address]Diirctzm mean volume (Bld) [Entitic vol]10.4 fLNormal6.7-10.6 [facility] HospitalComment on above:Performed By: #### CBC #### [address] [address]ELJ4.54 x10*6/mcLHigh3.80-5.20[facility] Comment on above:Performed By: #### CBC #### [address] [address]ZQZ72.6 x10*3/mcLHigh4.5-11.0[facility] Comment on above:Performed By: #### CBC #### [address] [address]XOWio 86-34-3564LFE [Mass/Vol]35.5 mg/LHigh0.0-9.9BPomerene HospitalComment on above:Result Comment: For normal applications [...] FUTURE CARDIAC EVENTS.Performed By: #### CRP #### [address] [address]Bxdf Autoon 55-84-7441Lixt Absolute0.1 x10*3/mcLNormal0.0-0.2 [facility] HospitalComment on above:Performed By: #### .Automated Diff #### [address] [address]Iyzoonbpq/100 WBC (Bld)0.5 %Normal0.0-1.5BPomerene HospitalComment on above:Performed By: #### .Automated Diff #### [address] [address]Rml Absolute0.3 x10*3/mcLNormal0.0-0.4BHarrison Community Hospital SystemComment on above:Performed By: #### .Automated Diff #### [address] [address]Rcczoysdzwc/100 WBC (Bld)2.3 %Normal0.0-5.4BPomerene HospitalComment on above:Performed By: #### .Automated Diff #### [address] [address]Ipxrj Absolute2.8 x10*3/mcLNormal1.0-4.8BPomerene HospitalComment on above:Performed By: #### .Automated Diff #### [address] [address]Zjvbdvhlsxw/100 WBC (Bld)22.5 %Low27.2-40.8BPomerene HospitalComment on above:Performed By: #### .Automated Diff #### [address] [address]Lnpx Absolute0.6 x10*3/mcLNormal0.1-1.1BPomerene HospitalComment on above:Performed By: #### .Automated Diff #### [address] [address]Vmucyqpfq/100 WBC (Bld)5.1 %Normal3.7-11.9BPomerene HospitalComment on above:Performed By: #### .Automated Diff #### [address] [address]Gzheax Absolute8.8 x10*3/mcLHigh1.8-7.7BPomerene HospitalComment on above:Performed By: #### .Automated Diff #### [address] [address]Vcmahc Auto69.6 %Acrnuy47.2-70.8BPomerene Hospital Comment on above:Performed By: #### .Automated Diff #### [address] [address]UDDdy 61-21-4402Cwa Rate12 mm/hrNormal0-30[facility] HospitalComment on above:Performed By: #### ESR #### [address] [address]Scpxujdj Office/Clinic Noteon 08-40-2288Ozdouqat Office/Clinic NoteThe content of this note was [...] solely to facilitate the conversation. Missing Attachment [id number] Can be viewed in source system The [...] prescription lotion to the wounds. She takes Glasco for pain and daily baby aspirin. She smokes and is on disability, and does not require [facility] paperwork. She reports recent blood flow [...] Orthopedic: Bony foot structur (more content not included)...[facility] HospitalComment on above:Order Comment: Missing Attachment [id number] Can be viewed in source systemMissing Attachment [id number] Can be viewed in source system Provider Letteron 72-11-8928Aeupuvlh Letter Mckayla Blas, AIRCRAFT FUELER-ELECTRODE CLEANING MACHINE OPERATOR [address] [place] [address] Re: Mitzi Macias Date of Visit: 05/18/2025 Dear Mckayla Blas APRN-SAYDA, [facility] [address] [place] [address], [phone] Date: 05/18/2025 12:46:10 Please see attached progress/office note regarding mutual patient, Mitzi aMcias who was seen on04/29/2025 14:16:18. Please see attached note for further details and please call with any questions or concerns. Sincerely, KANDI Sampson Providers: The following document(s) were included in the letter: May 18, 2025 12:43:05 EST - (05/18/2025) Office Visit Note CAANormal [facility] HospitalRenal Panelon 69-99-4462Udsgnkc [Mass/Vol]3.5 g/dL Low3.7-5.3BPomerene HospitalComment on above:Performed By: #### RENAL #### [address] [address]Ywxix gap [Moles/Vol]6 mmol/LNormal4-12[facility] HospitalComment on above:Performed By: #### RENAL #### [address] [address]DWM Crea Ratio25.0 dfxqmJfdtkl68.0-25.0[facility] HospitalComment on above:Performed By: #### RENAL #### [address] [address]Gvwnjlt [Mass/Vol]9.0 mg/dLNormal8.6-10.3BPomerene HospitalComment on above:Performed By: #### RENAL #### [address] [address]Ssjnsdue [Moles/Vol]105 mmol/SKnhtne89-971XdbhfsrrdElyria Memorial HospitalComment on above:Performed By: #### RENAL #### [address] [address]IW1 [Moles/Vol]30 mmol/IJkenpy74-58RtqywlhouElyria Memorial HospitalComment on above:Performed By: #### RENAL #### [address] [address]Yfbcrvljgn [Mass/Vol]0.80 mg/dLNormal0.60-1.20[facility] HospitalComment on above:Performed By: #### RENAL #### [address] [address]Oqrtvtf [Mass/Vol]137 mg/iVYyuf64-53OgmtfqwfuElyria Memorial HospitalComment on above:Performed By: #### RENAL #### [address] [address]Kidvgznby [Mass/Vol]3.6 mg/dLNormal2.5-4.6BPomerene HospitalComment on above:Performed By: #### RENAL #### [address] [address]Gemfghpqw [Moles/Vol]4.5 mmol/LNormal3.4-4.8BPomerene HospitalComment on above:Performed By: #### RENAL #### [address] [address]Mryyyk [Moles/Vol]141 mmol/QMlzqng107-317WlnkrojseElyria Memorial HospitalComment on above:Performed By: #### RENAL #### [address] [address]Azbx nitrogen [Mass/Vol]20 mg/dLNormal7-25[facility] HospitalComment on above:Performed By: #### RENAL #### [address] [address]Rivixxyvzpu 67-91-3433ReiwbiibqQkvyeqiol From: Maria Elena Negrete To: EU - [...] ) Other: PROVIDER RELATED REMINDER:_ ( ) Packaging Tech ( ) Call Pharmacy ( ) Call [...] unable to leave a message at this time.[facility] CenterVascular Office/Clinic Noteon 48-99-5832Zfdjelzl Office/Clinic NoteChief Complaint Leg ulcer History of Present Illness Mitzi was referred by her volleyball player for evaluation of PVD. She has had ulcers in the bilateral lower extremities above the ankle for about a year. She has been seen by wound care in [facility]. They are applying compression with medicated wraps. [...] signed by Corinne Kellogg MD 04/23/25 11:56 TLanc[facility] Hospital VL Ankle Brachial Indiceson 99-95-5786OM Ankle Brachial IndicesPreliminary Technologist Report Ankle/brachial index study was performed. Please see below for information. Testing Director: Zayra Ag, RVS Radiologist Report BILATERAL [...] please contact our Vascular Rehabilitation Department at [phone]. Final Signed by: Jose F Casanova MD Signed (Electronic Signature): 04.17.2025 3:28 pm Transcribed by: Jose F Casanova MD Transcribed DT/TM: 04.17.2025 3:12 (If Report is Signed, Electronically Signed in Other Vendor System)Normal [facility] HospitalBasophils Auto (Bld) [#/Vol]Ordered By: Flynn Urias on 23-80-0985Rcwjmmalm (Bld) [#/Vol]0.1 10 3/uL0.0-0.1FGalion Community HospitalBasophils/100 WBC Auto (Bld)Ordered By: Flynn Urias on 25-82-1211Rgqeexnvx/100 WBC (Bld)0.6 %0.2-2.0[facility] Eosinophils/100 WBC Auto (Bld)Ordered By: Flynn Urias on 03-26-2025 Eosinophils/100 WBC (Bld)2.7 %0.9-7.0[facility] Erythrocyte distribution width Auto (RBC) [Ratio]Ordered By: Flynn Urias on 35-16-0196Fokxaozseiy distribution width (RBC) [Ratio]16.4 %High11.0-15.0 [facility] HospitalGlomerular filtration rate (GFR) estimation in non- AmericanOrdered By: Flynn Urias on 45-22-1065QVF/1.73 sq M.predicted among non-blacks MDRD (S/P/Bld) [Vol rate/Area]mL/min/{1.73_m2}>=60 mL/min/1.73m 2FGalion Community HospitalHematocrit Auto (Bld) [Volume fraction]Ordered By: Flynn Urias on 54-22-4119Orzfdicafh (Bld) [Volume fraction]52.5 %High36.0-48.0[facility] HospitalHemoglobin [Mass/volume] in BloodOrdered By: Flynn Urias on 01-18-6640Xqjmpythxq (Bld) [Mass/Vol]16.1 g/rURgwv71.0-16.0[facility] HospitalLaboratory - Chemistry and Chemistry - challengeOrdered By: Flynn Urias on 03-26-2025 Albumin [Mass/Vol]2.8 g/dLLow3.4-5.0[facility] HospitalCalcium [Mass/Vol]8.6 mg/dL8.5-10.1FGalion Community HospitalChloride [Moles/Vol] 105 mmol/H17-332RrtjwiuudCleveland Clinic Avon HospitalCO2 [Moles/Vol]31.5 mmol/L 21.0-32.0[facility] HospitalCreatinine [Mass/Vol]0.69 mg/dL 0.55-1.02[facility] HospitalGFR/1.73 sq M.predicted MDRD (S/P/Bld) [Vol rate/Area]mL/min/{1.73_m2}>=60 mL/min/1.73m 2FGalion Community HospitalGlucose [Mass/Vol]147 mg/iQMdwl86-574PgbibnybsCleveland Clinic [facility] Hospital Potassium [Moles/Vol]4.2 mmol/L3.5-5.1FPaulding County Hospitalodium [Moles/Vol]141 mmol/H035-759VyddcvhlrCleveland Clinic Avon HospitalUrea nitrogen [Mass/Vol]15.0 mg/dL7.0-18.0[facility] HospitalUrea nitrogen/Creatinine [Mass ratio]21.7 mg/mgCleveland Clinic Avon Hospital Laboratory - Hematology and Cell countsOrdered By: Flynn Urias on 03-26-2025 ESR (Bld) [Velocity]48 mm/hHigh<=30[facility] HospitalImmature granulocytes/100 WBC (Bld)0.3 %0.0-0.5FGalion Community Hospital Leukocytes [#/volume] corrected for nucleated erythrocytes in Blood by Automated counOrdered By: Flynn Urias on 08-70-3087UNN corrected for nucl RBC Auto (Bld) [#/Vol]10.0 10 3/uL4.0-11.0[facility] HospitalLymphocytes Auto (Bld) [#/Vol]Ordered By: Flynn Urias on 49-34-0078Pfvnxexlkxb (Bld) [#/Vol]2.7 10 3/uL1.2-3.8[facility] HospitalLymphocytes/100 WBC Auto (Bld)Ordered By: Flynn Urias on 78-05-9874Ucbdpqqwbvr/100 WBC (Bld)27.2 % 20.5-60.0[facility] Auto (RBC) [Entitic mass]Ordered By: Flynn Urias on 73-49-2315QRX (RBC) [Entitic mass]27.2 pg26.7-34.0[facility] HospitalHC Auto (RBC) [Mass/Vol]Ordered By: Flynn Urias on 75-64-4960YUKI (RBC) [Mass/Vol]30.7 g/dL29.9-35.2FGalion Community HospitalMCV Auto (RBC) [Entitic vol]Ordered By: Flynn Urias on 99-21-2858SFN (RBC) [Entitic vol]88.7 fL81.0-99.0[facility] HospitalMonocytes Auto (Bld) [#/Vol]Ordered By: Flynn Urias on 25-41-2612Wpmduxkis (Bld) [#/Vol] 0.5 10 3/uL0.3-0.8[facility] HospitalMonocytes/100 WBC Auto (Bld) Ordered By: Flynn Urias on 96-75-5740Wlecydrvp/100 WBC (Bld)5.2 %1.7-12.0 [facility] HospitalNeutrophils Auto (Bld) [#/Vol]Ordered By: Flynn Urias on 58-01-6402Tbouzqokaln (Bld) [#/Vol]6.4 10 3/uL1.4-6.5FGalion Community HospitalNeutrophils/100 WBC Auto (Bld)Ordered By: Flynn Urias on 23-60-3382Uhyehktamjp/100 WBC (Bld)64.0 %43.0-75.0[facility] HospitalNo Panel InformationOrdered By: Flynn Urias on 97-87-1060E-Reactive Protein, Quantitative3.94 mg/dLHigh<=0.50[facility] Eosinophils # (Auto)0.3 10 3/uL0.0-0.7FGalion Community HospitalImmature Granulocyte # (Auto)0.03 10 3/uL0.00-0.03[facility] Phosphorus Level3.5 mg/dL2.6-4.7FGalion Community HospitalPlatelet mean volume Auto (Bld) [Entitic vol]Ordered By: Flynn Urias on 17-76-3939Uhffgksx mean volume (Bld) [Entitic vol]12.8 fL9.5-13.5FGalion Community Hospital Platelets Auto (Bld) [#/Vol]Ordered By: Flynn Urias on 74-39-3085Gcwmrscim (Bld) [#/Vol]146 10 3/mUNyb979-845WhdqbxssnCleveland Clinic Avon HospitalRBC Auto (Bld) [#/Vol]Ordered By: Flynn Urias on 73-19-0745TIB (Bld) [#/Vol]5.92 10 6/uLHigh4.20-5.40Fisher-Titus Medical Centererum or plasma anion gap determinationOrdered By: Flynn Urias on 69-87-7152Izqgm gap [Moles/Vol]8.7 mmol/LFGalion Community HospitalBasophils Auto (Bld) [#/Vol]Ordered By: Price Arora on 37-18-4127Qswcpmelh (Bld) [#/Vol]0.1 10 3/uL0.0-0.1FGalion Community HospitalBasophils/100 WBC Auto (Bld)Ordered By: Price Arora on 65-80-7930Zuoxbzwnh/100 WBC (Bld)0.4 %0.2-2.0[facility] Eosinophils/100 WBC Auto (Bld)Ordered By: Price Arora on 03-25-2025 Eosinophils/100 WBC (Bld)2.4 %0.9-7.0[facility] Erythrocyte distribution width Auto (RBC) [Ratio]Ordered By: Price Arora on 84-21-8329Gentmnltwlq distribution width (RBC) [Ratio]16.4 %High11.0-15.0 [facility] HospitalGlomerular filtration rate (GFR) estimation in non- AmericanOrdered By: Price Arora on 02-29-5685WTZ/1.73 sq M.predicted among non-blacks MDRD (S/P/Bld) [Vol rate/Area]mL/min/{1.73_m2}>=60 mL/min/1.73m 2FGalion Community HospitalHematocrit Auto (Bld) [Volume fraction]Ordered By: Price Arora on 37-88-7082Xuqromzqcl (Bld) [Volume fraction]56.6 %High36.0-48.0[facility] HospitalHemoglobin [Mass/volume] in BloodOrdered By: Price Arora on 30-74-7149Csinpldona (Bld) [Mass/Vol]17.4 g/pNGuke00.0-16.0[facility] HospitalLaboratory - Chemistry and Chemistry - challengeOrdered By: Price Arora on 03-25-2025 Bilirubin Ql (U)NegativeNEGATIVECleveland Clinic Avon HospitalGlucose (U) [Mass/Vol]NegativeNEGATIVECleveland Clinic Avon HospitalKetones Ql (U) NegativeNEGATIVECleveland Clinic Avon HospitalpH (U)8.0 [pH]5.0-9.0[facility]-Titus Medical Centerpecific gravity (U) [Rel density]1.0201.005-1.025 [facility] HospitalUrobilinogen Qn (U)1.0 {Little'U}/dL0.2-1.0 [facility] HospitalCalcium [Mass/Vol]9.2 mg/dL8.5-10.1FGalion Community HospitalChloride [Moles/Vol]106 mmol/M88-690IzkrnbzmpCleveland Clinic Avon HospitalCO2 [Moles/Vol]36.9 mmol/LHigh21.0-32.0[facility] HospitalCreatinine [Mass/Vol]0.86 mg/dL0.55-1.02[facility] GFR/1.73 sq M.predicted MDRD (S/P/Bld) [Vol rate/Area]mL/min/{1.73_m2}>=60 mL/min/1.73m 2FGalion Community HospitalGlucose [Mass/Vol]164 mg/dLHigh 74-106[facility] HospitalPotassium [Moles/Vol]4.0 mmol/L3.5-5.1 [facility] Medical Centerodium [Moles/Vol]144 mmol/G652-375ZkevkfdtfCleveland Clinic Avon HospitalUrea nitrogen [Mass/Vol]14.0 mg/dL7.0-18.0[facility] HospitalUrea nitrogen/Creatinine [Mass ratio]16.3 mg/mgCleveland Clinic Avon HospitalLaboratory - Hematology and Cell countsOrdered By: Price Arora on 97-93-8947Yfmypwvo granulocytes/100 WBC (Bld)0.3 %0.0-0.5 [facility] HospitalLaboratory - Specimen informationOrdered By: Price Arora on 87-45-8181Pkaephodpa (U)CLEARCLEARFGalion Community HospitalColor (U)LT. YELLOWYELLOWCleveland Clinic Avon HospitalLaboratory - UrinalysisOrdered By: Price Arora on 28-06-4241Hhnvkwm casts LM Ql (Urine sed) RARECleveland Clinic Avon HospitalLeukocyte esterase Test strip Ql (U) NegativeNEGATIVECleveland Clinic Avon HospitalMucus Ql (Urine sed)TRACE AbnormalNONE SEENCleveland Clinic Avon HospitalNitrite Ql (U)NegativeNEGATIVE [facility] HospitalProtein Ql (U)100 mg/dLAbnormalNEG/TRACE [facility] HospitalLeukocytes [#/volume] corrected for nucleated erythrocytes in Blood by Automated counOrdered By: Price Arora on 03-25-2025 WBC corrected for nucl RBC Auto (Bld) [#/Vol]11.8 10 3/uLHigh4.0-11.0[facility] HospitalLymphocytes Auto (Bld) [#/Vol]Ordered By: Price Arora on 38-55-0882Ggnnrbntqvs (Bld) [#/Vol]3.1 10 3/uL1.2-3.8[facility] HospitalLymphocytes/100 WBC Auto (Bld)Ordered By: Price Arora on 59-99-3656Xrujzntrgua/100 WBC (Bld)26.4 %20.5-60.0[facility] Auto (RBC) [Entitic mass]Ordered By: Price Arora on 68-45-9698RTA (RBC) [Entitic mass]27.5 pg26.7-34.0[facility] HospitalHC Auto (RBC) [Mass/Vol]Ordered By: Price Arora on 00-97-7502VCUC (RBC) [Mass/Vol]30.7 g/dL29.9-35.2FGalion Community HospitalMCV Auto (RBC) [Entitic vol] Ordered By: Price Arora on 02-61-4633CIS (RBC) [Entitic vol]89.4 fL81.0-99.0 [facility] HospitalMonocytes Auto (Bld) [#/Vol]Ordered By: Price Arora on 77-95-7967Bkekshwzz (Bld) [#/Vol]0.6 10 3/uL0.3-0.8[facility] HospitalMonocytes/100 WBC Auto (Bld)Ordered By: Price Arora on 05-29-9194Iptoajgzw/100 WBC (Bld)5.2 %1.7-12.0[facility] Neutrophils Auto (Bld) [#/Vol]Ordered By: Price Arora on 02-54-7286Tnbcrzfictq (Bld) [#/Vol]7.7 10 3/uLHigh1.4-6.5FGalion Community Hospital Neutrophils/100 WBC Auto (Bld)Ordered By: Price Arora on 03-25-2025 Neutrophils/100 WBC (Bld)65.3 %43.0-75.0[facility] HospitalNo Panel InformationOrdered By: Price Arora on 26-12-9947Nbott BacteriaTRACE #/HPFAbnormalNONE SEENCleveland Clinic Avon HospitalUrine Culture ReflexedHolzer HospitalUrine Occult BloodNegativeNEGATIVECleveland Clinic Avon HospitalUrine Other CastsSEEN #/LPFAbnormalNONE [facility] HospitalUrine Other CrystalsNone Seen #/HPFNone [facility] - AndersonUrine RBC0-2 #/HPF0-2FGalion Community Hospital Urine Squamous Epithelial CellsFEW #/LPFAbnormalNONE/RARECleveland Clinic Avon HospitalUrine WBC0-2 #/HPFAbnormalNONE [facility] HospitalEosinophils # (Auto)0.3 10 3/uL0.0-0.7FGalion Community Hospital Immature Granulocyte # (Auto)0.04 10 3/uLHigh0.00-0.03[facility] HospitalPlatelet mean volume Auto (Bld) [Entitic vol]Ordered By: Price Arora on 24-28-3797Raocuolm mean volume (Bld) [Entitic vol]12.4 fL9.5-13.5FGalion Community HospitalPlatelets Auto (Bld) [#/Vol]Ordered By: Price Arora on 96-63-9266Trqmhgzvh (Bld) [#/Vol]160 10 3/iC466-878NjpzfvrazCleveland Clinic Avon HospitalRBC Auto (Bld) [#/Vol]Ordered By: Priceoh Arora on 99-00-9714FQQ (Bld) [#/Vol]6.33 10 6/uLHigh4.20-5.40[facility]itus Medical Centererum or plasma anion gap determinationOrdered By: Price Arora on 67-32-3803Bqkfb gap [Moles/Vol]5.1 mmol/LFGalion Community HospitalVascular Office/Clinic Noteon 23-09-4858Ptlkegpp Office/Clinic NoteChief Complaint lle wound History of [...] She has had testing done at the [facility] last year which she brought with [...] Electronically signed by Omero Santana 03/23/25 12:01 [facility] HospitalPodiatry Office/Clinic Noteon 60-08-6244Tcjdnubm Office/Clinic NoteThe content of this note was generated by an Georama (AI) language dictation. The patient or guardian [...] of this note was generated by an Georama (AI) language dictation. The patient or guardian [...] of this note was generated by an Wel[employer] intelligence (AI) language dictation. The patient or [...] wraps (gauze, tila bandage, Coban II, tuba nut dehydrator operator), Dakins solution, a 40-daycourse of antibiotics, [...] other blood thinners. [place] in [place]. Review of Systems Constitutional: Negative for signs [...] their lower extremities Positi (more content not included)...[facility] HospitalComment on above:Order Comment: Missing Attachment [id number] Can be viewed in source systemXR Tibia/Fibula Righton 47-07-4503PV Tibia/Fibula Right2 views right tib- fib demonstrate: [...] Is Signed, Electronically Signed in Other Vendor System)[facility] HospitalResults Follow-Upon 72-13-2140Lphyqkt Follow-Up [id number] Mitzi Macias 1970 F Date Provider Department Center 02/04/2025 Mikaela-AMI ORO CARDIOLOGY None Family History Problem Relation Age of Onset Heart attack Paternal Grandmother Family Status - Relation Status Age at Mother Father Paternal GrandmotherNLima Memorial HospitalOrders Onlyon 32-05-0278Jhcruj [id number] Mitzi Macias 1970 F Date Provider Department Center 01/30/2025 [id number], HISTORICAL [facility] Family History Problem Relation Age of Onset Heart attack Paternal Grandmother Family Status - Relation Status Age at Mother Father Paternal GrandmotherNLima Memorial HospitalCA ECHO DOPPLER COMPLETEon 57-62-1459JolO[place], [place] [address] Cardiology Report Signed Patient: MITZI MACIAS MR#: [id number] : 1970 Acct:[id number] Age/Sex: 54 / F ADM Date: 01/29/25 Loc: CARD Attending Dr: AMI ORO APRN Ordering Physician: AMI ORO APRN Date of Service: 01/29/25 Procedure(s): CA echo doppler complete Accession Number(s): [id number] cc: Mckayla Blas LENDING ACTIVITIES SUPERVISOR; AMI ORO APRN Patient Name: MITZI MACIAS MR#: [id number] : 1970 Exam Date: 01/29/2025 Ordering Doctor: AMI ORO ELECTRODE CLEANING MACHINE OPERATOR ECHOCARDIOGRAM REPORT PROCEDURE: CA ECHO DOPPLER [...] HERRERA Signed By: 01/29/251839 DD/ 39 TD/TT: Privacy Attorney:TBHRadiology, Radiologist, - 01/29/2025 [place] [address] Cardiology Report Signed Patient: MITZI MACIAS MR#: [id number] : 1970 Acct:[id number] Age/Sex: 54 / F ADM Date: 01/29/25 Loc: CARD Attending Dr: AMI ORO APRN Ordering Physician: AMI ORO APRN Date of Service: 01/29/25 Procedure(s): CA echo doppler complete Accession Number(s): [id number] cc: Mckayla Blas LENDING ACTIVITIES SUPERVISOR; AMI ORO APRN Patient Name: MITZI MACIAS MR#: [id number] : 1970 Exam Date: 01/29/2025 Ordering Doctor: [...] HERRERA Signed By: 01/29/251839 DD/ 39 TD/TT: Privacy Attorney: [facility] HospitalRadiology Study observation (narrative)[facility] ECHO DOPPLER COMPLETEOrdered By: Radiologist Radiology on 35-47-6519RICTFreeman Neosho Hospital Work Phone: Glucose (Bld) [Mass/Vol]on 65-65-3695Xqfftgv Blood, PLA253 mg/dLFreeman Neosho HospitalLaboratory - Hematology and Cell countson 01-29-2025 HbA1c (Bld) [Mass fraction]8.4 %[facility] HospitalNo Panel Informationon 01-29-2025 Interpretation and review of laboratory resultsAbnormalAudrain Medical Center HealthcareOffice Visiton 40-38-6552Bofyld-up [id number] Mitzi Macias 1970 F Date Provider Department Center 01/06/2025 Mikaela-AMI ORO Wilfredo Rojas Family History Problem Relation Age of Onset Heart attack Paternal Grandmother Family Status - Relation Status Age at Mother Father Paternal Grandmother Level of Service:[address] [place] OFFICE/OUTPATIENT ESTABLISHED MOD MDM 30 MIN Reason for Visit and Comments: Congestive Heart Failure [127] Hypertension [747952] Hyperlipidemia [182]NormalMary Rutan Hospital36on Regarding lab results from 10/08/2024: MD Mickie Merritt MA Lipids, ALT AST, and BMP are normal. HbA1c was not performed. Continue current management. LM on patient's VM.NormalMary Rutan HospitalGlucose (Bld) [Mass/Vol]Ordered By: Mica Sauceda on 53-84-0345Uxumzjs Blood, POC97 mg/dLNONE HealthcareLaboratory - Hematology and Cell countson 52-15-0100FgV0f (Bld) [Mass fraction]7.4 %NOMS HealthcareNo Panel InformationOrdered By: Mica Sauceda on 95-25-7713CXLU HealthcareTBH UA (CLEAN/CATCH) MICROSCOPIC IF INDICATEon 50-03-7937CCLVWLZFF URINENegativeNEGATIVENOMS HealthcareBLOOD URINENegative NEGATIVENOMS HealthcareClarity (U)CLEARCLEARNOMS HealthcareColor (U)YELLOWYELLOW NOMS HealthcareGLUCOSE URINE UANegativeNEGATIVE mg/dLNOMS Healthcare Interpretation and review of laboratory resultsAbnormalNOMS HealthcareKetones Ql (U)NegativeNEGATIVE mg/dLNOMS HealthcareLeukocyte esterase Test strip Ql (U) NegativeNEGATIVENOMS HealthcareNITRITE URINENegativeNEGATIVENOMS HealthcarepH (U)5.5 [pH]5.0 - 9.0NOMS HealthcareProtein (U) [Mass/Vol]30 mg/dLAbnormal NEG/TRACENOMS HealthcareSPECIFIC GRAVITY URINE>=1.254Hgxztzgo6.005 - 1.025NOMS HealthcareURINE MICROSCOPIC INDICATEDYESNOMS HealthcareUROBILINOGEN URINE1.0 EU/dL0.2 - 1.0 EU/dLNOMS HealthcareCLINISYNGUARDIAN HOSPITAL HealthcareALL CBC WITH AUTO DIFFon 46-29-9291OZNUWHLRN ABSOLUTE AUTO0.1NOMS HealthcareBasophils/100 WBC (Bld)0.5 %0.2 - 2.0 %NOMS HealthcareEosinophils/100 WBC (Bld)1.9 %0.9 - 7.0 % NOMS HealthcareErythrocyte distribution width (RBC) [Ratio]14.6 %11.0 - 15.0 % NOMS HealthcareHematocrit (Bld) [Volume fraction]50.9 %High36.0 - 48.0 %NOMS HealthcareHemoglobin (Bld) [Mass/Vol]16.1 g/bDYczv46.0 - 16.0 g/dLNONE HealthcareIMMATURE GRANULOCYTES ABS AUTO0.04HighNONE HealthcareImmature granulocytes/100 WBC (Bld)0.3 %0.0 - 0.5 %NOMS HealthcareInterpretation and review of laboratory resultsAbnormalNONE HealthcareLYMPHOCYTES ABSOLUTE AUTO3.2 NOMS HealthcareLymphocytes/100 WBC (Bld)25.1 %20.5 - 60.0 %NOMMissouri Baptist Hospital-SullivanMCH (RBC) [Entitic mass]29.2 pg26.7 - 34.0 pgNOLakeland Regional HospitalMCHC (RBC) [Mass/Vol] 31.6 g/dL29.9 - 35.2 g/dLFreeman Neosho HospitalMCV (RBC) [Entitic vol]92.2 fL81.0 - 99.0 fLNONE HealthcareMONOCYTES ABSOLUTE AUTO0.7NONE HealthcareMonocytes/100 WBC (Bld)5.2 %1.7 - 12.0 %NOMS HealthcareNEUTROPHILS ABSOLUTE AUTO8.6HighNONE HealthcareNeutrophils/100 WBC (Bld)67 %43.0 - 75.0 %NOMS HealthcarePlatelet mean volume (Bld) [Entitic vol]12.8 fL9.5 - 13.5 fLNOLakeland Regional HospitalTBH EO #0.2NOMS HealthcareTBH AFN202XhwMYTI HealthcareTB RBC5.52HighNOMS HealthcareTBH WBC12.8 HighNONE HealthcareCLINISYNCNOKLAHOMA CITY VETERANS AD[facility]ISTR[facility] [place] HealthcareOffice Visiton 75-00-1445Rolmec-up [id number] Mitzi Macias 1970 F Date Provider Department Center 08/08/2024 [id number], SAMTROY [facility] Family History Problem Relation Age of Onset Heart attack Paternal Grandmother Family Status - Relation Status Age at Paternal Grandmother Level of Service:40755 [place] OFFICE/OUTPATIENT ESTABLISHED MOD MDM 30 MIN Reason for Visit and Comments: Congestive Heart Failure [127] - Denies chest pain, SOB, and palpitations. Hypertension [042508] Hyperlipidemia [182] LVH [Other] Edema [[id number]] - Denies worsening edema. She sees wound care for RLE ulcer. She was seeing the vein specialists here in town but they are moving to [place] in a few weeks.[facility] CenterProvider Letteron 30-72-2838Jkblfleo LetterProvider Letter June 11, 2024 [address] [place] [phone] : 1970 To Whom It May Concern, Please excuse above patient from work. Date of Illness: From: 06/11/24 8:30am To: 06/11/24 12:30pm Comments: _Brian Macias was with his for her doctor's appointment. Sincerely, Andra Forrester, Surgical SchedulerNormSouthwest General Health CenterUrology Office/Clinic Noteon 40-29-3034Xrakpjk Office/Clinic NoteUrology Office/Clinic Note Chief Complaint 18 mth HPI Staff 53 yo here 18 month f/u CT for adrenal mass. CT SCAN 05/12/24-[facility] Previous DX: adrenal mass, kidney stone, [...] [facility] [address], [place] [address]- Additional Instructions: [address] AP [...] TIDAC potassium chloride 10 (more content not included)...[facility] Health CenterComment on above:Result Comment: Electronically Signed By: Elbert ARAUZ MD\.br\Date and Time Signed: 06/11/24 10:55 EST\.br\Electronically Co- Signed By: Maria Elena Negrete\.br\Date and Time Co-Signed: 06/11/24 10:53 EST Glucose (Bld) [Mass/Vol]Ordered By: Mica Sauceda on 95-94-4407Spkssws Blood, VMW833 mg/dLNOMS HealthcareLaboratory - Hematology and Cell countson 05-27-2024 HbA1c (Bld) [Mass fraction]9.2 %NOMS HealthcareNo Panel InformationOrdered By: Mica Sauceda on 95-65-9591HCLY HealthcareCT ABDOMEN PELVIS W CONon 05-12-2024 [place] [address] CT Scan Report Signed Patient: MITZI MACIAS MR#: [id number] : 1970 Acct:[id number] Age/Sex: 53 / F ADM Date: 05/12/24 Loc: CT Attending Dr: Gaviota MAYERS Ordering Physician: Gaviota Adames Date of Service: 05/12/24 Procedure(s): CT abdomen pelvis w con Accession Number(s): [id number] cc: Mckayla Blas NP [place] [id number] Patient Name: MITZI MACIAS MRN: [id number] date: 1970 Sex: F Assigned Patient Location: CT Current Patient Location: Accession/Order Number: [id number] Exam Date: 05/12/2024 11:15 Report Date: 05/12/2024 [...] Signed By: 05/12/24 1419 DD/ 1416 TD/TT: Privacy Attorney:SONNYHRadiology, Radiologist, - 05/12/2024 [place] [address] CT Scan Report Signed Patient: MITZI MACIAS MR#: [id number] : 1970 Acct:[id number] Age/Sex: 53 / F ADM Date: 05/12/24 Loc: CT Attending Dr: Gaviota MAYERS Ordering Physician: Gaviota Adames Date of Service: 05/12/24 Procedure(s): CT abdomen pelvis w con Accession Number(s): [id number] cc: Mckayla Blas NP [facility] [place] [id number] Patient Name: MITZI MACIAS MRN: [id number] date: 1970 Sex: F Assigned Patient Location: CT Current Patient Location: Accession/Order Number: [id number] Exam Date: 05/12/2024 11:15 Report Date: 05/12/2024 [...] Signed By: 05/12/24 1419 DD/ 15 TD/TT: Privacy Attorney: [facility] FOR INCURABLESHenna HealthcareRadiology Study observation (narrative)[facility] HospitalCT ABDOMEN PELVIS W CONOrdered By: Radiologist Radiology on 38-02-3066OPPGFreeman Neosho Hospital Work Phone: LUMBAR SPINE WO CONon [phone] [id number] Magnetic Resonance Report Signed Patient: MITZI MACIAS MR#: [id number] : 1970 Acct:[id number] Age/Sex: 53 / F ADM Date: 05/12/24 Loc: MRI Attending Dr: Angela Cochran NP Ordering Physician: Angela Cochran NP Date of Service: 05/12/24 Procedure(s): MR lumbar spine wo con Accession Number(s): [id number] cc: Mckayla Blas LENDING ACTIVITIES SUPERVISOR; Angela Cochran NP [address] [address] Patient Name: MITZI MACIAS MRN: [id number] date: 1970 Sex: F Assigned Patient Location: MRI Current Patient Location: CT Accession/Order Number: [id number] Exam Date: 05/12/2024 09:21 Report Date: 05/12/2024 [...] Signed By: 05/12/24 1443 DD/ 144 TD/TT: Privacy Attorney:TBHRadiology, Radiologist, MD - 05/12/2024 [place] [address] Magnetic Resonance Report Signed Patient: MITZI MACIAS MR#: [id number] : 1970 Acct:[id number] Age/Sex: 53 / F ADM Date: 05/12/24 Loc: MRI Attending Dr: Angela Cochran NP Ordering Physician: Angela Cochran NP Date of Service: 05/12/24 Procedure(s): MR lumbar spine wo con Accession Number(s): [id number] cc: Mckayla Blas NP; Angela Cochran NP [facility] [place] [id number] Patient Name: MITZI MACIAS MRN: [id number] date: 1970 Sex: F Assigned Patient Location: MRI Current Patient Location: CT Accession/Order Number: [id number] Exam Date: 05/12/2024 09:21 Report Date: 05/12/2024 [...] M.D. Signed By: 05/12/241442 DD/ 40 TD/TT: Privacy Attorney: CARLOS HealthcareRadiology Study observation (narrative)[facility] LUMBAR SPINE WO CONOrdered By: Radiologist Radiology on 99-92-3340[facility] Work Phone: [facility] CREATININEon 84-44-1525Xequceqpxc [Mass/Vol]0.92 mg/dL0.55 - 1.02 mg/dLNOMS HealthcareGFR/1.73 sq M.predicted CKD-EPI (S/P/Bld) [Vol rate/Area]>60>=60 mL/min/1.73m 2NOMS HealthcareTBH EGFR-NON AF [place]OOK ISLANDER>60 >=60 mL/min/1.73m 2NOMS HealthcareCLINISYNCNOMS HealthcareSEGMENTAL BLOOD PRESSUREon 07-56-9542MsgOcone[place] [address] Vein Report Signed Patient: MITZI MACIAS MR#: [id number] : 1970 Acct:[id number] Age/Sex: 53 / F ADM Date: 04/24/24 Loc: Attending Dr: Comfort Pretty Ordering Physician: Comfort Pretty Date of Service: 04/24/24 Procedure(s): SEGMENTAL PRESSURES Accession Number(s): [id number] cc: Mckayla Blas LENDING ACTIVITIES SUPERVISOR; Comfort Pretty [place] [address] Patient Name: MITZI MACIAS MRN: [id number] date: 1970 Sex: F Assigned Patient Location: Current Patient Location: Accession/Order Number: [id number] Exam Date: 04/24/2024 10:25 Report Date: 04/24/2024 11:20 At the request of: COMFORT PRETTY Procedure: SEGMENTAL PRESSURES EXAM: SEGMENTAL PRESSURES HISTORY: R09.89 COMPARISON: None. FINDINGS: Segmental pressures presented as follows (right, left) in mmHg. Brachial: 169, 166 Upper thigh: Not obtained Lower thigh: 129, 119 Calf: 124, 106 DPA: 108, 105 SENIOR [employer] ADMINISTRATOR: 100, 91 1st Toe: 124, 142 [...] Signed By: 04/24/24 1123 DD/ 19 TD/TT: Privacy Attorney:SONNYHRadiology, Radiologist, - 04/24/2024 [place] [address] Vein Report Signed Patient: MITZI MACIAS MR#: [id number] : 1970 Acct:[id number] Age/Sex: 53 / F ADM Date: 04/24/24 Loc: VC Attending Dr: Comfort Pretty Ordering Physician: Comfort Pretty Date of Service: 04/24/24 Procedure(s): VC SEGMENTAL PRESSURES Accession Number(s): [id number] cc: Mckayla Blas LENDING ACTIVITIES SUPERVISOR; Comfort Pretty [facility] [place] [address] Patient Name: MITZI MACIAS MRN: [facility]:[id number] date: 1970 Sex: F Assigned Patient Location: Current Patient Location: Accession/Order Number: [id number] Exam Date: 04/24/2024 10:25 Report Date: 04/24/2024 11:20 At the request of: COMFORT PRETTY Procedure: VC SEGMENTAL PRESSURES EXAM: VC SEGMENTAL PRESSURES HISTORY: R09.89 COMPARISON: None. FINDINGS: Segmental pressures presented as follows (right, left) in mmHg. Brachial: 169, 166 Upper thigh: Not obtained Lower thigh: 129, 119 Calf: 124, 106 DPA: 108, 105 SENIOR LINUX UNIX ADMINISTRATOR: 100, 91 1st Toe: 124, 142 [...] Signed By: 04/24/24 1123 DD/ 1120 TD/TT: Privacy Attorney: CARLOS HealthcareRadiology Study observation (narrative)[facility] HealthcareSEGMENTAL BLOOD PRESSUREOrdered By: Radiologist Radiology on 63-32-6031[facility] Work Phone: mm TOMOSYNTHESIS SCREENING BIon 09-27-3736Unt[place]conee, [place] [address] Mammography Report Signed Patient: MITZI MACIAS MR#: [id number] : 1970 Acct:[id number] Age/Sex: 53 / F ADM Date: 12/13/23 Loc: MAMMO Attending Dr: Mckayla Blas NP Ordering Physician: Mckayla Blas NP Results: Date of Service: 12/13/23 Follow Up: Procedure(s): MM tomosynthesis screening BI Accession Number(s): [id number] cc: Mckayla Blas NP Patient Name: MITZI MACIAS MR#: [id number] : 1970 Exam Date: 12/13/2023 Ordering Doctor: [...] unknown cancer at age 75. LOCATION: [facility] BREAST COMPOSITION: The breasts are [...] Signed By: 12/14/23 1122 DD/ 1121 TD/TT: Privacy Attorney:TBHRadiology, Radiologist, MD - 12/14/2023 [place] [address] Mammography Report Signed Patient: MITZI MACIAS MR#: [id number] : 1970 Acct:[id number] Age/Sex: 53 / F ADM Date: 12/13/23 Loc: MAMMO Attending Dr: Mckayla Blas NP Ordering Physician: Mckayla Blas NP Results: Date of Service: 12/13/23 Follow Up: Procedure(s): MM tomosynthesis screening BI Accession Number(s): [id number] cc: Mckayla Blas NP Patient Name: MITZI MACIAS MR#: [id number] : 1970 Exam Date: 12/13/2023 Ordering Doctor: [...] unknown cancer at age 75. LOCATION: [facility] BREAST COMPOSITION: The breasts are [...] Signed By: 12/14/23 1122 DD/ 1121 TD/TT: Privacy Attorney: [facility] HospitalRadiology Study observation (narrative)[facility] TOMOSYNTHESIS SCREENING BIOrdered By: Radiologist Radiology on 67-76-0399UMJZFreeman Neosho Hospital Work Phone: bLOOD CULTURE 1on 73-42-9915EUOYG CULTURE 1 Blood Culture 1 NG5D NO GROWTH AT 5 DAYS.^NO GROWTH AT 5 DAYS. [facility]ho HospitalBLOOD CULTURE 2on 79-64-7964HXFUH CULTURE 2 Blood Culture 2 NG5D NO GROWTH AT 5 DAYS.^NO GROWTH AT 5 DAYS. [facility] HospitalNo Panel Informationon 05-58-5846UJSLIHZYJVXZN HealthcareECG 12-LEADon 63-54-1796HefO[place], [place] [address] Electrocardiograph Report Signed Patient: MITZI MACIAS MR#: [id number] : 1970 Acct:[id number] Age/Sex: 53 / F ADM Date: 08/31/23 Loc: [place] 214-[address]: Jacqueline Becerra D.O. Ordering Physician: Andra Alcala Date of Service: 08/31/23 Procedure(s): ECG 12 lead Accession Number(s): [id number] cc: [facility] Test Date: 2023-08-31 Pat Name: MITZI MACIAS Department: Room: - Gender: Female [employer]: : 1970 Requested By: MCKAYLA BLAS Order Number: [id number] Reading MD: LAURI DIOR Measurements Intervals [place] Rate: 102 P: 67 MN: 144 QRS: 52 QRSD: 72 T: 49 QT: 326 QTc: 385 Interpretive Statements 1120 Sinus tachycardia 4068 Nonspecific Twave abnormality 8102 Low QRS voltage in chest leads 9140 abnormal rhythm ECG Compared to ECG 12/04/2022 21:27:48 Electronically Signed On 09-02-2023 7:31:43 EST by LAURI DIOR Dictated By: Lauri Dior D.O. Signed By: 09/02/23 0732 DD/ 180 TD/TT: Privacy Attorney:TBHRadiology, Radiologist, - 09/02/2023 [place] [address] Electrocardiograph Report Signed Patient: MITZI MACIAS MR#: [id number] : 1970 Acct:[id number] Age/Sex: 53 / F ADM Date: 08/31/23 Loc: [place] 214-[address]: Jacqueline Becerra D.O. Ordering Physician: Andra Alcala Date of Service: 08/31/23 Procedure(s): ECG 12 lead Accession Number(s): [id number] cc: [facility] Test Date: 2023-08-31 Pat Name: MITZI MACIAS Department: Room: - Gender: Female [employer]: : 1970 Requested By: MCKAYLA BLAS Order Number: [id number] Reading MD: LAURI DIOR Measurements Intervals [place] Rate: 102 P: 67 MN: 144 QRS: 52 QRSD: 72 T: 49 QT: 326 QTc: 385 Interpretive Statements 1120 Sinus tachycardia 4068 Nonspecific Twave abnormality 8102 Low QRS voltage in chest leads 9140 abnormal rhythm ECG Compared to ECG 12/04/2022 21:27:48 Electronically Signed On 09-02-2023 7:31:43 EST by LAURI DIOR Dictated By: Lauri Dior D.O. Signed By: 09/02/23 0732 DD/ 1808 TD/TT: Privacy Attorney: CARLOS [facility] 12-LEADOrdered By: Radiologist Radiology on 29-72-4061VOTT ishBowl Work Phone: EC 12-LEADon 74-20-8207Zllznszwj Study observation (narrative)CARLOS [facility] AUTO DIFFon 65-55-0274PLRJ #0.0 103/ulNormal 0.0-0.1The [facility] HospitalComment on above:Performed By: #### CBC #### [facility] [address] [place] [address] Dr. Ashlie HillsBasophils/100 WBC (Bld)0.1 %Critically low0.2-2.0The [facility] HospitalComment on above:Performed By: #### CBC #### [facility] [address] [place] [address] Dr. Ashlie Mcintosh #0.0 103/ulNormal0.0-0.7The [facility] HospitalComment on above: Performed By: #### CBC #### [facility] [address] [place] [address] Dr. Ashlie Grahamosinophils/100 WBC (Bld)0.0 %Critically low0.9-7.0The [facility] HospitalComment on above:Performed By: #### CBC #### [facility] [address] [place] [address] Dr. Ashlie Grahamrythrocyte distribution width (RBC) [Ratio]14.9 %Cwjixr41.0-15.0 The [facility] HospitalComment on above:Performed By: #### CBC #### [facility] [address] [place] [address] Dr. Ashlie HillsHematocrit (Bld) [Volume fraction]46.2 %Gqopzi40.0-48.0[facility] ClinicComment on above:Performed By: #### CBC #### [facility] [address] [place] [address] Dr. Ashlie HillsHemoglobin (Bld) [Mass/Vol]14.7 g/lNNrmwtr98.0-16.0The [facility] HospitalComment on above:Performed By: #### CBC #### [facility] [address] [place] [address] Dr. Ashlie Hunter #0.06 10e3/ulCritically high0.00-0.03The [facility] Comment on above:Performed By: #### CBC #### [facility] [address] [place] [address] Dr. Ashlie Hunter %0.4 %Normal0.0-0.5The [facility] HospitalComment on above: Performed By: #### CBC #### [facility] [address] [place] [address] Dr. Ashlie Swenson #1.3 103/ulNormal1.2-3.8The [facility] HospitalComment on above:Performed By: #### CBC #### [facility] [address] [place] [address] Dr. Ashlie Dsouzahocytes/100 WBC (Bld)9.4 %Critically low20.5-60.0The [facility] HospitalComment on above:Performed By: #### CBC #### [facility] [address] [place] [address] Dr. Ashlie GhoshUAL DIFF REQNONormalThe [facility] HospitalComment on above: Performed By: #### CBC #### [facility] [address] [place] [address] Dr. Ashlie Mckeon (RBC) [Entitic mass]28.4 ujApoxpd41.7-34.0The [facility] HospitalComment on above:Performed By: #### CBC #### [facility] [address] [place] [address] Dr. Ashlie Mckeon (RBC) [Mass/Vol]31.8 g/yFWkudhn85.9-35.2The [facility] HospitalComment on above:Performed By: #### CBC #### [facility] [address] [place] [address] Dr. Ashlie MckeonV (RBC) [Entitic vol]89.4 dCQwhbnx65.0-99.0The [facility] HospitalComment on above:Performed By: #### CBC #### [facility] [address] [place] [address] Dr. Ashlie Killian #0.5 103/ulNormal0.3-0.8The [facility] HospitalComment on above:Performed By: #### CBC #### [facility] [address] [place] [address] Dr. Ashlie Palominoocytes/100 WBC (Bld)3.4 %Normal1.7-12.0The [facility] Comment on above:Performed By: #### CBC #### [facility] [address] [place] [address] Dr. Ashlie Olsen #11.8 103/ulCritically high1.4-6.5The [facility] Comment on above:Performed By: #### CBC #### [facility] [address] [place] [address] Dr. Ashlie Quiñonesutrophils/100 WBC (Bld)86.7 %Critically high43.0-75.0The [facility] HospitalComment on above:Performed By: #### CBC #### [facility] [address] [place] [address] Dr. Ashlie Lantigualet mean volume (Bld) [Entitic vol]12.6 fLNormal9.5-13.5The [facility] HospitalComment on above:Performed By: #### CBC #### [facility] [address] [place] [address] Dr. Ashlie HillsPLT133 103/ulCritically eeu778-974Rio [facility] HospitalComment on above:Performed By: #### CBC #### [facility] [address] [place] [address] Dr. Ashlie HillsRBC5.17 106/ulNormal4.20-5.40The [facility] HospitalComment on above:Performed By: #### CBC #### [facility] [address] [place] [address] [address] Ashlie HillsWBC13.6 103/ulCritically high4.0-11.0The [facility] HospitalComment on above:Performed By: #### CBC #### [facility] [address] [place] [address] [address] Ashlie HillsMAGNESIUMon 73-47-9990Mtaefdorn [Mass/Vol]2.2 mg/dLNormal1.8-2.4 The [facility] HospitalComment on above:Performed By: #### INFLUAB #### [facility] [address] [place] [address] [address] Ashlie HillsPOINT OF CARE GLUCOSEon 56-40-3578Jzokbgk [Mass/Vol]340 mg/dL Critically jsee31-625Ekl [facility] HospitalComment on above:Performed By: #### POCGLUC #### [facility] [address] [place] [address] Dr. Ashlie HillsGlucose [Mass/Vol]276 mg/dLCritically nrdp22-295Sci [facility] HospitalComment on above:Performed By: #### CBC #### [facility] [address] [place] [address] [address] Ashlie HillsGlucose [Mass/Vol]333 mg/dLCritically fexv87-429Zhb [facility] HospitalComment on above:Performed By: #### CBC #### [facility] [address] [place] [address] Dr. Ashlie HillsPROF CHEM 8 (BAS METB)on 30-93-1712Rcpdn gap [Moles/Vol]10.9 mmol/LNormalThe [facility] HospitalComment on above:Performed By: #### INFLUAB #### [facility] [address] [place] [address] Dr. Ashlie HillsCalcium [Mass/Vol]9.3 mg/dLNormal8.5-10.1The [facility] Comment on above:Performed By: #### INFLUAB #### [facility] [address] [place] [address] [address] Ashlie HillsChloride [Moles/Vol]103 mmol/LIlovlc03-457Ndi [facility] Comment on above:Performed By: #### INFLUAB #### [facility] [address] [place] [address] [address] Ashlie HillsCO2 [Moles/Vol]31.2 mmol/CSpvbav49.0-32.0The [facility] Comment on above:Performed By: #### INFLUAB #### [facility] [address] [place] [address] [address] Ashlie HillsCreatinine [Mass/Vol]0.96 mg/dLNormal0.55-1.02[facility] ClinicComment on above:Performed By: #### INFLUAB #### [facility] [address] [place] [address] [address] Ashlie GrahamGFR-AF COOK ISLANDER>60Normal>=60The [facility] HospitalComment on above:Performed By: #### INFLUAB #### [facility] [address] [place] [address] [address] Ashlie GrahamGFR-NON AF COOK ISLANDER>60Normal>=60The [facility] HospitalComment on above:Performed By: #### INFLUAB #### [facility] [address] [place] [address] [address] Ashlie HillsGlucose [Mass/Vol]288 mg/dLCritically tbqq76-526Zmv [facility] HospitalComment on above:Performed By: #### INFLUAB #### [facility] [address] [place] [address] [address] Ashlie HillsPotassium [Moles/Vol]5.1 mmol/LNormal3.5-5.1The [facility] Comment on above:Performed By: #### INFLUAB #### [facility] [address] [place] [address] [address] Ashlie HillsSodium [Moles/Vol]140 mmol/GPdgpxk206-372Fpj [facility] Comment on above:Performed By: #### INFLUAB #### [facility] [address] [place] [address] [address] Ashlie HillsUrea nitrogen [Mass/Vol]30.0 mg/dLCritically high7.0-18.0The [facility] HospitalComment on above:Performed By: #### INFLUAB #### [facility] [address] [place] [address] Dr. Ashlie HillsUrea nitrogen/Creatinine [Mass ratio]31.2 mg/mgNoalThSelect Medical Specialty Hospital - Boardman, IncComment on above:Performed By: #### INFLUAB #### [facility] [address] [place] [address] Dr. Ashlie VernonC AUTO DIFFon 93-30-1911LCTU #0.0 103/ulNormal0.0-0.1The [facility] Memorial Hospitalment on above:Performed By: #### CBC #### [facility] [address] [place] [address] Dr. Ashlie HillsBasophils/100 WBC (Bld)0.4 %Normal0.2-2.0[facility] on above:Performed By: #### CBC #### [facility] [address] [place] [address] Dr. Ashlie Mcintosh #0.0 103/ulNormal0.0-0.7The [facility] HospitalComment on above: Performed By: #### CBC #### [facility] [address] [place] [address] Dr. Ashlie Grahamosinophils/100 WBC (Bld)0.0 %Critically low0.9-7.0[facility] Hospitalment on above:Performed By: #### CBC #### [facility] [address] [place] [address] Dr. Ashlie Grahamrythrocyte distribution width (RBC) [Ratio]14.8 %Yrsxtz84.0-15.0 [facility] Hospitalment on above:Performed By: #### CBC #### [facility] [address] [place] [address] Dr. Ashlie HillsHematocrit (Bld) [Volume fraction]49.9 %Critically high36.0-48.0 [facility] ClinicComment on above:Performed By: #### CBC #### [facility] [address] [place] [address] Dr. Ashlie HillsHemoglobin (Bld) [Mass/Vol]15.7 g/uTYmwnlp16.0-16.0The [facility] HospitalComment on above:Performed By: #### CBC #### [facility] [address] [place] [address] Dr. Ashlie Hunter #0.04 10e3/ulCritically high0.00-0.03The [facility] Comment on above:Performed By: #### CBC #### [facility] [address] [place] [address] Dr. Ashlie Hunter %0.5 %Normal0.0-0.5The [facility] HospitalComment on above: Performed By: #### CBC #### [facility] [address] [place] [address] Dr. Ashlie Swenson #1.1 103/ulCritically low1.2-3.8The [facility] Comment on above:Performed By: #### CBC #### [facility] [address] [place] [address] Dr. Ashlie Dsouzahocytes/100 WBC (Bld)12.7 %Critically low20.5-60.0The [facility] HospitalComment on above:Performed By: #### CBC #### [facility] [address] [place] [address] Dr. Ashlie GhoshUAL DIFF REQNONormalThe [facility] HospitalComment on above: Performed By: #### CBC #### [facility] [address] [place] [address] Dr. Ashlie Mckeon (RBC) [Entitic mass]28.1 dkUbhwfu55.7-34.0The [facility] HospitalComment on above:Performed By: #### CBC #### [facility] [address] [place] [address] Dr. Ashlie Mckeon (RBC) [Mass/Vol]31.5 g/lSZbaiym62.9-35.2The [facility] HospitalComment on above:Performed By: #### CBC #### [facility] [address] [place] [address] Dr. Ashlie MckeonV (RBC) [Entitic vol]89.3 oYNtdkou41.0-99.0The [facility] HospitalComment on above:Performed By: #### CBC #### [facility] [address] [address] [address] Ashlie Killian #0.1 103/ulCritically low0.3-0.8The [facility] HospitalComment on above:Performed By: #### CBC #### [facility] [address] [address] [address] Ashlie Palominoocytes/100 WBC (Bld)1.3 %Critically low1.7-12.0The [facility] HospitalComment on above:Performed By: #### CBC #### [facility] [address] [place] [address] Dr. Ashlie Olsen #7.2 103/ulCritically high1.4-6.5The [facility] Comment on above:Performed By: #### CBC #### [facility] [address] [place] [address] Dr. Ashlie Quiñonesutrophils/100 WBC (Bld)85.1 %Critically high43.0-75.0The [facility] HospitalComment on above:Performed By: #### CBC #### [facility] [address] [place] [address] Dr. Ashlie Lantigualet mean volume (Bld) [Entitic vol]12.2 fLNormal9.5-13.5The [facility] HospitalComment on above:Performed By: #### CBC #### [facility] [address] [place] [address] Dr. Ashlie HillsPLT116 103/ulCritically evn382-386Hvv [facility] HospitalComment on above:Performed By: #### CBC #### [facility] [address] [place] [address] Dr. Ashlie HillsRBC5.59 106/ulCritically high4.20-5.40The [facility] Comment on above:Performed By: #### CBC #### [facility] [address] [place] [address] [address] Ashlie HillsWBC8.5 103/ulNormal4.0-11.0The [facility] HospitalComment on above: Performed By: #### CBC #### [facility] [address] Ashlie Harrison CHEST WO W CONon 62-90-7006DEE CHEST WO W CONEXAMINATION: CTA CHEST WO [...] authenticated by: HATTIE GOFF Date: 2022-12-05 01:52NormalThe [facility] HospitalMAGNESIUMon 12-13-1818Ejtbyiqdr [Mass/Vol]2.1 mg/dLNormal 1.8-2.4The [facility] HospitalComment on above:Performed By: #### POCGLUC #### [facility] [address] [address] [address] Ashlie HillsPOINT OF CARE GLUCOSEon 82-46-0454Jwfmezl [Mass/Vol]293 mg/dL Critically trso52-646Vwj [facility] HospitalComment on above:Performed By: #### POCGLUC #### [facility] [address] [address] [address] Ashlie HillsGlucose [Mass/Vol]269 mg/dLCritically tplo15-421Min [facility] HospitalComment on above:Performed By: #### POCGLUC #### [facility] [address] [address] [address] Ashlie HillsGlucose [Mass/Vol]223 mg/dLCritically rtyw94-843Vtl [facility] HospitalComment on above:Performed By: #### CVDAGS #### [facility] [address] [place] [address] Dr. Ashlie HillsPROF CHEM 8 (BAS METB)on 60-92-0441Shzps gap [Moles/Vol]11.6 mmol/LNormalThe [facility] HospitalComment on above:Performed By: #### POCGLUC #### [facility] [address] [address] [address] Ashlie HillsCalcium [Mass/Vol]9.2 mg/dLNormal8.5-10.1The [facility] Comment on above:Performed By: #### POCGLUC #### [facility] [address] [address] [address] Ashlie HillsChloride [Moles/Vol]102 mmol/IDnhstj03-849Bnw [facility] Comment on above:Performed By: #### POCGLUC #### [facility] [address] [address] [address] Ashlie HillsCO2 [Moles/Vol]28.7 mmol/NDarype02.0-32.0The [facility] Comment on above:Performed By: #### POCGLUC #### [facility] [address] [place] [address] Dr. Ashlie HillsCreatinine [Mass/Vol]1.04 mg/dLCritically high0.55-1.02The [facility] HospitalComment on above:Performed By: #### POCGLUC #### [facility] [address] [address] [address] Ashlie GrahamGFR-AF COOK ISLANDER>60Normal>=60The [facility] HospitalComment on above:Performed By: #### POCGLUC #### [facility] [address] [address] [address] Ashlie GrahamGFR-NON AF SWVYZWNS01 mL/min/1.25q2Gpcjjsyhyw low>=60The [facility] HospitalComment on above:Performed By: #### POCGLUC #### [facility] [address] [address] [address] Ashlie HillsGlucose [Mass/Vol]231 mg/dLCritically envy20-317Ehy [facility] on above:Performed By: #### POCGLUC #### [facility] [address] [address] [address] Ashlie HillsPotassium [Moles/Vol]4.3 mmol/LNormal3.5-5.1The [facility] Comment on above:Performed By: #### POCGLUC #### [facility] [address] [address] [address] Ashlie HillsSodium [Moles/Vol]138 mmol/MDxyvcb341-950Mai [facility] Comment on above:Performed By: #### POCGLUC #### [facility] [address] [address] [address] Ashlie HillsUrea nitrogen [Mass/Vol]17.0 mg/dLNormal7.0-18.0The [facility] on above:Performed By: #### POCGLUC #### [facility] [address] [address] [address] Ashlie HillsUrea nitrogen/Creatinine [Mass ratio]16.3 mg/mgNormalThe [facility] HospitalComment on above:Performed By: #### POCGLUC #### [facility] [address] [address] [address] Ashlie HillsRESPIRATORY PANEL PLUSon 12-47-2628VtgrmdazggNdx detectedNormal NOT DETECTEDThe [facility] HospitalComment on above:Performed By: #### CVDAGS #### [facility] [address] [address] [address] Ashlie Gandhi ParapertusisNot detectedNormalNOT DETECTEDThe [facility] HospitalComment on above:Performed By: #### CVDAGS #### [facility] [address] [address] [address] Ashlie Gandhi PertussisNot detectedNormalNOT DETECTEDThe [facility] Comment on above:Performed By: #### CVDAGS #### [facility] [address] [address] [address] Ashlie HillsChlamydia PneumoniaeNot detectedNormalNOT DETECTEDThe [facility] HospitalComment on above:Performed By: #### CVDAGS #### [facility] [address] [address] [address] Ashlie HillsCoronavirus 229ENot detectedNormalNOT DETECTEDThe [facility] HospitalComment on above:Performed By: #### CVDAGS #### [facility] [address] [address] [address] Ashlie HillsCoronavirus JOJ4Leq detectedNormalNOT DETECTEDThe [facility] HospitalComment on above:Performed By: #### CVDAGS #### [facility] [address] [address] [address] Dailey ChangCoronavirus CL94Nks detectedNormalNOT DETECTEDThe [facility] HospitalComkalk[facility] on above:Performed By: #### CVDAGS #### [facility] [address] [address] [address] Ashlie HillsCoronavirus GU48Bmq detectedNormalNOT DETECTEDThe [facility] HospitalComkalk[facility] on above:Performed By: #### CVDAGS #### [facility] [address] [address] [address] Ashlie Lockhart A H1Not detectedNormalNOT DETECTEDThe [facility] Comment on above:Performed By: #### CVDAGS #### [facility] [address] [address] [address] Ashlie Centeno H1 2009Not detectedNormalNOT DETECTEDThe [facility] HospitalComment on above:Performed By: #### CVDAGS #### [facility] [address] [address] [address] Ashlie Centeno H3Not detectedNormalNOT DETECTEDThe [facility] Comment on above:Performed By: #### CVDAGS #### [facility] [address] [address] [address] Ashlie Lockhart BNot detectedNormalNOT DETECTEDThe [facility] Comment on above:Performed By: #### CVDAGS #### [facility] [address] [address] [address] Ashlie ChávezapneumovirusNot detectedNormalNOT DETECTEDThe [facility] HospitalComkalk[facility] on above:Performed By: #### CVDAGS #### [facility] [address] [address] [address] Ashlie Jimenez. PneumoniaeNot detectedNormalNOT DETECTEDThe [facility] HospitalComment on above:Performed By: #### CVDAGS #### [facility] [address] [address] [address] Ashlie Mendieta 1Not detectedNormalNOT DETECTEDThe [facility] HospitalComkalk[facility] on above:Performed By: #### CVDAGS #### [facility] [address] [address] [address] Ashlie Mendieta 2Not detectedNormalNOT DETECTEDThe [facility] HospitalComment on above:Performed By: #### CVDAGS #### [facility] [address] [address] [address] Ashlie Mendieta 3DetectedAbnormalNOT DETECTEDThe [facility] Comment on above:Performed By: #### CVDAGS #### [facility] [address] [address] [address] Ashlie Mendieta 4Not detectedNormalNOT DETECTEDThe [facility] HospitalComkalk[facility] on above:Performed By: #### CVDAGS #### [facility] [address] [place] [address] Dr. Ashlie HillsRhino/EnterovirusNot detectedNormalNOT DETECTEDThe [facility] HospitalComment on above:Performed By: #### CVDAGS #### [facility] [address] [place] [address] Dr. Ahslie Gallagher Header 1RESPIRATORY PANEL: VIRUSESSumma Health Comment on above:Performed By: #### CVDAGS #### [facility] [address] [address] [address] Ashlie Gallagher Header 2RESPIRATORY PANEL: BACTERIASumma HealthComment on above:Performed By: #### CVDAGS #### [facility] [address] [place] [address] Dr. Ashlie GivensNot detectedNormalNOT DETECTEDThe [facility] HospitalComment on above:Performed By: #### CVDAGS #### [facility] [address] [place] [address] Dr. Ashlie Finney-CoV-2 (COVID-19) RNA MADDY+probe Ql (Unsp spec)Not detected NormalNOT DETECTEDThe [facility] HospitalComment on above:Performed By: #### CVDAGS #### [facility] [address] [place] [address] Dr. Ashlie HillsXR CHEST 1 Von [id number] CHEST 1 VEXAMINATION: XR CHEST 1 V HISTORY: Shortness of breath COMPARISON: Chest x-ray 08/09/2021 TECHNIQUE: Portable chest FINDINGS: The lung parenchyma is free of consolidation or infiltrate. No pneumothorax or pleural effusion. The cardiac, mediastinal and hilar contours are normal. The visualized osseous structures exhibit no gross abnormality. IMPRESSION: No acute cardiopulmonary abnormality. Electronically authenticated by: MARYANNE POWER Date: 2022-12-04 22:23Summa HealthBLOOD GASES BTYon MODEROOMercy Health St. Elizabeth [facility]stown HospitalComment on above:Performed By: #### CBC #### [facility] [address] [place] [address] Dr. Ashlie Duran TESTPositiveMercy Health Lorain Hospitalment on above: Performed By: #### CBC #### [facility] [address] [address] [address] Ashlie Crenshaw excess Calc (Bld) [Moles/Vol]5.4 mmol/LCritically high -2.0-2.0The [facility] on above:Performed By: #### CBC #### [facility] [address] [address] [address] Ashlie SkyP [facility]edoComkalk[facility] on above: Performed By: #### CBC #### [facility] [address] [address] [address] Ashlie HillsCPMercy Health Willard Hospital on above:Performed By: #### CBC #### [facility] [address] [address] [address] Ashlie HillsUjvjvHHL4AusjguOra04 Brady StreetComkalkaska memorial health center on above:Performed By: #### CBC #### [facility] [address] [address] [address] Ashlie HillsHCO3 (Bld) [Moles/Vol]30.8 mmol/LCritically high22.0-26.0The [facility] on above:Performed By: #### CBC #### [facility] [address] [address] [address] Ashlie HillsLPMNormalThe [facility] HospitalComkalkaska memorial health center on above:Performed By: #### CBC #### [facility] [address] [address] [address] Ashlie HackettUTE VOLUMESumma HealthComkalkaska memorial health center on above: Performed By: #### CBC #### [facility] [address] [address] [address] Ashlie HillsOxygen (Bld) [Partial pressure]46.3 mm[Hg]Critically low 80.0-100.0[facility] on above:Performed By: #### CBC #### [facility] [address] [place] [address] Dr. Yilan ChangOxygen saturation in Blood83.9 %Critically low95.0-100.0The [facility] HospitalComment on above:Performed By: #### CBC #### [facility] [address] [address] [address] Ashlie HillsPCO254.2 mmHgCritically high35.0-45.0The [facility] on above:Performed By: #### CBC #### [facility] [address] [address] [address] Ashlie HillsMercy Health Kings Mills HospitalComkalkaska memorial health center on above:Performed By: #### CBC #### [facility] [address] [address] [address] Ashlie Knapp (Bld)7.363 [pH]Normal7.350-7.450The [facility] on above:Performed By: #### CBC #### [facility] [address] [address] [address] Ashlie VerasGreen Cross HospitalComkalkaska memorial health center on above:Performed By: #### CBC #### [facility] [address] [address] [address] Ash[facility] HillsAv[facility] on above:Performed By: #### CBC #### [facility] [address] [place] [address] Dr. Ashlie Avendano Tuscarawas HospitalComkalkaska memorial health center on above: Performed By: #### CBC #### [facility] [address] [place] [address] Dr. Ashlie GoldGreen Cross HospitalComkalkaska memorial health center on above:Performed By: #### CBC #### [facility] [address] [address] [address] Ashlie HillsMary Rutan HospitalComkalkaska memorial health center on above:Performed By: #### CBC #### [facility] [address] [place] [address] Dr. Ashlie HillsChillicothe HospitalComkalkaska memorial health center on above:Performed By: #### CBC #### [facility] [address] [address] [address] Ashlie Perry [id number] peptide B (Bld) [Mass/Vol]76.0 pg/mL Normal<=900.0The [facility] HospitalComment on above:Performed By: #### POCGLUC #### [facility] [address] [address] [address] Ashlie Chinchilla AUTO DIFFon [id number] #0.1 103/ulNormal0.0-0.1The [facility] HospitalComment on above:Performed By: #### CBC #### [facility] [address] [address] [address] Ashlie HillsBasophils/100 WBC (Bld)0.6 %Normal0.2-2.0[facility] Comment on above:Performed By: #### CBC #### [facility] [address] [address] [address] Ashlie Mcintosh #0.2 103/ulNormal0.0-0.7The [facility] HospitalComment on above: Performed By: #### CBC #### [facility] [address] [address] [address] Ashlie Grahamosinophils/100 WBC (Bld)1.9 %Normal0.9-7.0[facility] Comment on above:Performed By: #### CBC #### [facility] [address] [place] [address] Dr. Ashlie Grahamrythrocyte distribution width (RBC) [Ratio]15.0 %Kwsuja34.0-15.0 [facility] ClinicComment on above:Performed By: #### CBC #### [facility] [address] [address] [address] Ashlie HillsHematocrit (Bld) [Volume fraction]49.1 %Critically high36.0-48.0 [facility] ClinicComment on above:Performed By: #### CBC #### [facility] [address] [address] [address] Ashlie HillsHemoglobin (Bld) [Mass/Vol]15.6 g/dZNypmvp05.0-16.0The [facility] HospitalComment on above:Performed By: #### CBC #### [facility] [address] [place] [address] Dr. Ashlie Hunter #0.02 10e3/ulNormal0.00-0.03The [facility] HospitalComment on above:Performed By: #### CBC #### [facility] [address] [place] [address] Dr. Ashlie Hunter %0.2 %Normal0.0-0.5The [facility] HospitalComment on above: Performed By: #### CBC #### [facility] [address] [place] [address] Dr. Ashlie Swenson #2.8 103/ulNormal1.2-3.8The [facility] HospitalComment on above:Performed By: #### CBC #### [facility] [address] [place] [address] Dr. Ashlie Dsouzahocytes/100 WBC (Bld)29.9 %Hcsacv51.5-60.0The [facility] HospitalComment on above:Performed By: #### CBC #### [facility] [address] [place] [address] Dr. Ashlie Marie DIFF REQNONormalThe [facility] HospitalComment on above: Performed By: #### CBC #### [facility] [address] [place] [address] Dr. Ashlie Mckeon (RBC) [Entitic mass]28.5 oaVnfxxi76.7-34.0The [facility] HospitalComment on above:Performed By: #### CBC #### [facility] [address] [place] [address] Dr. Ashlie Mckeon (RBC) [Mass/Vol]31.8 g/iVNhwyjp95.9-35.2The [facility] HospitalComment on above:Performed By: #### CBC #### [facility] [address] [place] [address] Dr. Ashlie Mckeon (RBC) [Entitic vol]89.8 gVZncfid53.0-99.0The [facility] HospitalComment on above:Performed By: #### CBC #### [facility] [address] [place] [address] Dr. Ashlie Killian #1.0 103/ulCritically high0.3-0.8The [facility] Comment on above:Performed By: #### CBC #### [facility] [address] [place] [address] Dr. Ashlie Palominoocytes/100 WBC (Bld)10.6 %Normal1.7-12.0[facility] Comment on above:Performed By: #### CBC #### [facility] [address] [place] [address] Dr. Ashlie Olsen #5.3 103/ulNormal1.4-6.5The [facility] HospitalComment on above:Performed By: #### CBC #### [facility] [address] [place] [address] Dr. Ashlie Quiñonesutrophils/100 WBC (Bld)56.8 %Pocfkl12.0-75.0The [facility] HospitalComment on above:Performed By: #### CBC #### [facility] [address] [place] [address] Dr. Ashlie Crump mean volume (Bld) [Entitic vol]12.5 fLNormal9.5-13.5The [facility] HospitalComment on above:Performed By: #### CBC #### [facility] [address] [place] [address] Dr. Ashlie WhiteT109 103/ulCritically fgc972-831Lsp [facility] HospitalComment on above:Performed By: #### CBC #### [facility] [address] [place] [address] Dr. Ashlie PruettC5.47 106/ulCritically high4.20-5.40The [facility] Comment on above:Performed By: #### CBC #### [facility] [address] [place] [address] Dr. Ashlie BhaktaBC9.4 103/ulNormal4.0-11.0The [facility] HospitalComment on above: Performed By: #### CBC #### [facility] [address] [place] [address] Dr. Ashlie Jones 14(COMP METB)on 64-01-1101Hjbesli [Mass/Vol]2.9 g/dL Critically low3.4-5.0The [facility] HospitalComment on above:Performed By: #### CBC #### [facility] [address] [place] [address] Dr. Ashlie HillsAlbumin/Globulin [Mass ratio]0.6 {ratio}NormalThe [facility] HospitalComment on above:Performed By: #### CBC #### [facility] [address] [place] [address] Dr. Ashlie Gonzalez [Catalytic activity/Vol]64 U/KMauwvy58-505Yvg [facility] HospitalComment on above:Performed By: #### CBC #### [facility] [address] [place] [address] Dr. Ashlie Chambers [Catalytic activity/Vol]16 U/NKlqlfl63-47Fho [facility] HospitalComment on above:Performed By: #### CBC #### [facility] [address] [place] [address] Dr. Ashlie Arce gap [Moles/Vol]9.6 mmol/LNormalThe [facility] HospitalComment on above:Performed By: #### CBC #### [facility] [address] [place] [address] Dr. Ashlie Tiwari [Catalytic activity/Vol]16 U/PDnzbbx57-86Ypb [facility] HospitalComment on above:Performed By: #### CBC #### [facility] [address] [place] [address] Dr. Ashlie HillsBilirubin [Mass/Vol]0.5 mg/dLNormal0.2-1.0The [facility] Comment on above:Performed By: #### CBC #### [facility] [address] [place] [address] Dr. Ashlie HillsCalcium [Mass/Vol]8.7 mg/dLNormal8.5-10.1The [facility] Comment on above:Performed By: #### CBC #### [facility] [address] [address] [address] Ashlie HillsChloride [Moles/Vol]103 mmol/IDrjthk04-456Tma [facility] Comment on above:Performed By: #### CBC #### [facility] [address] [address] [address] Ashlie HillsCO2 [Moles/Vol]30.7 mmol/SSaipng64.0-32.0The [facility] Comment on above:Performed By: #### CBC #### [facility] [address] [address] [address] Ashlie HillsCreatinine [Mass/Vol]0.96 mg/dLNormal0.55-1.02The [facility] HospitalComment on above:Performed By: #### CBC #### [facility] [address] [place] [address] Dr. Ashlie GrahamGFR-AF COOK ISLANDER>60Normal>=60The [facility] HospitalComment on above:Performed By: #### CBC #### [facility] [address] [address] [address] Ashlie Delaney-NON AF COOK ISLANDER>60Normal>=60The [facility] HospitalComment on above:Performed By: #### CBC #### [facility] [address] [address] [address] Ashlie HillsGlobulin (S) [Mass/Vol]4.7 g/dLNormalThe [facility] HospitalComment on above:Performed By: #### CBC #### [facility] [address] [address] [address] Ashlie HillsGlucose [Mass/Vol]170 mg/dLCritically xupu14-972Fgy [facility] HospitalComment on above:Performed By: #### CBC #### [facility] [address] [address] [address] Ashlie HillsPotassium [Moles/Vol]4.3 mmol/LNormal3.5-5.1The [facility] Comment on above:Performed By: #### CBC #### [facility] [address] [address] [address] Ashlie HillsProtein [Mass/Vol]7.6 g/dLNormal6.4-8.2The [facility] Comment on above:Performed By: #### CBC #### [facility] [address] [address] [address] Ashlie HillsSodium [Moles/Vol]139 mmol/WZamrzf815-070Nuz [facility] Comment on above:Performed By: #### CBC #### [facility] [address] [place] [address] Dr. Ashlie HillsUrea nitrogen [Mass/Vol]16.0 mg/dLNormal7.0-18.0The [facility] HospitalComment on above:Performed By: #### CBC #### [facility] [address] [place] [address] Dr. Ashlie HillsUrea nitrogen/Creatinine [Mass ratio]16.7 mg/mgNormalThe [facility] HospitalComment on above:Performed By: #### CBC #### [facility] [address] [place] [address] Dr. Ashlie HillsSYMPTOMATIC COVID-19 ANTIGENon [id number] StatementSEE BELOW NormalThe [facility] HospitalComment on above:Result Comment: This test has [...] is revoked sooner.Performed By: #### CVDAGS #### [facility] [address] [place] [address] Dr. Ashlie Finney-CoV-2 (COVID-19) RNA MADDY+probe Ql (Unsp spec)NegativeNormal NEGATIVECleveland ClinicComment on above:Performed By: #### CVDAGS #### [facility] [address] [place] [address] Dr. Ashlie Alvarado, [facility] SENSITIVITYon 82-39-3431JFYUQP2.9 pg/mLNormal 4.0-51.3The [facility] HospitalComment on above:Result Comment: CUT-OFF POINTS HAVE BEEN ESTABLISHED BASED ON THE FOURTH UNIVERSAL DEFINITIONS OF MYOCARDIAL INFARCTION. THE UPPER REFERENCE LIMIT (URL) OF TROPONIN, DEFINED THE 99TH PERCENTILE OF cTnI DISTRIBUTION IN A REFERENCE POPULATION, HAS BEEN CONFIRMED THE DECISION THRESHOLD FOR IN DIAGNOSIS.Performed By: #### POCGLUC #### [facility] [address] [place] [address] Dr. Ashlie MarshallALBUMIN, RAND URon 40-94-7816mKKR56.8 mg/dLCritically high <=30.0The [facility] HospitalComment on above:Performed By: #### CVDAGS #### [facility] [address] [place] [address] Dr. Ashlie Vaughn RANDOM W/MICROSCOPICon 75-08-6796JRPEOEPTTKAN SEENNormalNONE SEENCleveland ClinicComment on above:Performed By: #### CVDAGS #### [facility] [address] [place] [address] Dr. Ashlie Galarzairubin Ql (U)NegativeNormalNEGATIVEThe [facility] Comment on above:Performed By: #### CVDAGS #### [facility] [address] [place] [address] Dr. Ashlie HillsCASTSEENAbnormalNONE SEENCleveland ClinicComment on above: Performed By: #### CVDAGS #### [facility] [address] [place] [address] Dr. Ashlie HillsClarity (U)CLEARNormalCLEARThe [facility] HospitalComment on above: Performed By: #### CVDAGS #### [facility] [address] [address] [address] Ashlie Prescottlor (U)YELLOWNormalYELLOWCleveland ClinicComment on above: Performed By: #### CVDAGS #### [facility] [address] [address] [address] Ashlie HillsCrystals LM Nom (Urine sed)NONE SEENNormalNONE SEENCleveland ClinicComkalkaska memorial health center on above:Performed By: #### CVDAGS #### [facility] [address] [address] [address] Dailey ChangEpithelial cells LM Ql (Urine sed)MODERATEAbnormalNONE SEEN /RARE The [facility] HospitalComkalkaska memorial health center on above:Performed By: #### CVDAGS #### [facility] [address] [place] [address] Dr. Ashlie HillsGlucose Ql (U)NegativeNormalNEGATIVECleveland ClinicComkalkaska memorial health center on above:Performed By: #### CVDAGS #### [facility] [address] [address] [address] Ashlie HillsHemoglobin Ql (U)TRACE-INTACTAbnormalNEGATIVECleveland [facility] on above:Performed By: #### CVDAGS #### [facility] [address] [place] [address] Dr. Ashlie HillsKetones Ql (U)NegativeNormalNEGATIVECleveland ClinicComkalkaska memorial [facility] center on above:Performed By: #### CVDAGS #### [facility] [address] [address] [address] Ashlie HillsLEUKOCYTESNegativeNormalNEGATIVECleveland ClinicComkalkaska [facility] on above:Performed By: #### CVDAGS #### [facility] [address] [address] [address] Ashlie HillsMUCOUSNONE SEENNormalNONE SEENCleveland ClinicComkalkaska memorial health center on above:Performed By: #### CVDAGS #### [facility] [address] [address] [address] Ashlie HillsNitrite Ql (U)NegativeNormalNEGATIVEThe [facility] HospitalComment on above:Performed By: #### CVDAGS #### [facility] [address] [place] [address] Dr. Ashlie HillspH (U)5.0 [pH]Normal5-9The [facility] HospitalComment on above: Performed By: #### CVDAGS #### [facility] [address] [place] [address] Dr. Ashlie WilderBimumABE4-9Equytv7-5Fsb [facility] HospitalComment on above:Performed By: #### CVDAGS #### [facility] [address] [place] [address] Dr. Ashlie HillsSPEC GRAVITY1.840Jmkvucbn0.005-<=1.025The [facility] Comment on above:Performed By: #### CVDAGS #### [facility] [address] [place] [address] Dr. Ashlie Vaughn HNXTYSM832 mg/dlAbnormalNEGATIVE/ TRACEThe [facility] Comment on above:Performed By: #### CVDAGS #### [facility] [address] [place] [address] Dr. Ashlie Metzbilinogen Qn (U)0.2 {Little'U}/dLNormal0.2 - 1.0The [facility] HospitalComment on above:Performed By: #### CVDAGS #### [facility] [address] [place] [address] Dr. Ashlie HillsWBCNONE SEENNormalNONE SEENThe [facility] HospitalComment on above: Performed By: #### CVDAGS #### [facility] [address] [place] [address] Dr. Ashlie Chinchilla AUTO DIFFon [id number] #0.0 103/ulNormal0.0-0.1The [facility] HospitalComment on above:Performed By: #### CBC #### [facility] [address] [place] [address] Dr. Ashlie HillsBasophils/100 WBC (Bld)0.3 %Normal0.2-2.0The [facility] Comment on above:Performed By: #### CBC #### [facility] [address] [place] [address] Dr. Ashlie Mcintosh #0.4 103/ulNormal0.0-0.7The [facility] HospitalComment on above: Performed By: #### CBC #### [facility] [address] [place] [address] Dr. Ashlie Grahamosinophils/100 WBC (Bld)3.0 %Normal0.9-7.0The [facility] Comment on above:Performed By: #### CBC #### [facility] [address] [place] [address] Dr. Ashlie Grahamrythrocyte distribution width (RBC) [Ratio]15.3 %Critically high 11.0-15.0Cleveland ClinicComment on above:Performed By: #### CBC #### [facility] [address] [place] [address] Dr. Ashlie HillsHematocrit (Bld) [Volume fraction]52.4 %Critically high36.0-48.0 The [facility] HospitalComment on above:Performed By: #### CBC #### [facility] [address] [place] [address] Dr. Ashlie HillsHemoglobin (Bld) [Mass/Vol]16.8 g/dLCritically high12.0-16.0C[facility] ClinicComment on above:Performed By: #### CBC #### [facility] [address] [place] [address] Dr. Ashlie Hunter #0.04 10e3/ulCritically high0.00-0.03The [facility] Comment on above:Performed By: #### CBC #### [facility] [address] [place] [address] Dr. Ashlie Hunter %0.3 %Normal0.0-0.5The [facility] HospitalComment on above: Performed By: #### CBC #### [facility] [address] [place] [address] Dr. Ashlie Swenson #4.5 103/ulCritically high1.2-3.8The [facility] Comment on above:Performed By: #### CBC #### [facility] [address] [place] [address] Dr. Ashlie Dsouzahocytes/100 WBC (Bld)33.2 %Ienxjz23.5-60.0The [facility] HospitalComment on above:Performed By: #### CBC #### [facility] [address] [place] [address] Dr. Ashlie Marie DIFF REQNONormalThe [facility] HospitalComment on above: Performed By: #### CBC #### [facility] [address] [place] [address] Dr. Ashlie Granger (RBC) [Entitic mass]28.0 caTnyldf99.7-34.0The [facility] HospitalComment on above:Performed By: #### CBC #### [facility] [address] [place] [address] Dr. Ashlie Mckeon (RBC) [Mass/Vol]32.1 g/rNZscxlq89.9-35.2The [facility] HospitalComment on above:Performed By: #### CBC #### [facility] [address] [place] [address] Dr. Ashlie Mckeon (RBC) [Entitic vol]87.3 eETnucov26.0-99.0The [facility] HospitalComment on above:Performed By: #### CBC #### [facility] [address] [place] [address] Dr. Ashlie Killian #0.8 103/ulNormal0.3-0.8The [facility] HospitalComment on above:Performed By: #### CBC #### [facility] [address] [place] [address] Dr. Ashlie Palominoocytes/100 WBC (Bld)5.7 %Normal1.7-12.0[facility] Comment on above:Performed By: #### CBC #### [facility] [address] [place] [address] Dr. Ashlie Olsen #7.8 103/ulCritically high1.4-6.5The [facility] Comment on above:Performed By: #### CBC #### [facility] [address] [address] [address] Ashlie Quiñonesutrophils/100 WBC (Bld)57.5 %Ruyprh53.0-75.0C[facility] ClinicComment on above:Performed By: #### CBC #### [facility] [address] [address] [address] Ashlie HillsPlatelet mean volume (Bld) [Entitic vol]12.0 fLNormal9.5-13.5The [facility] HospitalComment on above:Performed By: #### CBC #### [facility] [address] [place] [address] Dr. Ashlie HillsPLT152 103/xoZrcwja645-908DeeCleveland ClinicComment on above: Performed By: #### CBC #### [facility] [address] [place] [address] Dr. Ashlie HillsRBC6.00 106/ulCritically high4.20-5.40[facility] Comment on above:Performed By: #### CBC #### [facility] [address] [place] [address] Dr. Ashlie HillsWBC13.6 103/ulCritically high4.0-11.0C[facility] ClinicComment on above:Performed By: #### CBC #### [facility] [address] [place] [address] Dr. Ashlie HillsLIPID PROFILEon 62-64-8721DYLU-HDL RATIO NORMSEE [facility] HospitalComment on above:Result Comment: 3.3 - 4.4 LOW RISK 4.4 - 7.1 AVERAGE RISK 7.1 - 11.0 MODERATE RISK >11.0 HIGH RISKPerformed By: #### CBC #### [facility] [address] [place] [address] Dr. Ashlie HillsCholesterol [Mass/Vol]139 mg/dLNormal<=200The [facility] Comment on above:Performed By: #### CBC #### [facility] [address] [address] [address] Ashlie HillsCholesterol in HDL [Mass/Vol]35 mg/dLCritically idi13-32DhmCleveland ClinicComment on above:Performed By: #### CBC #### [facility] [address] [address] [address] Ashlie HillsCholesterol in LDL [Mass/Vol]67.4 mg/dLNoSelect Medical [facility] Clinic Rehabilitation Hospital, AvonComment on above:Performed By: #### CBC #### [facility] [address] [address] [address] Ashlie Lopezesteroralia.total/Cholesterol in HDL [Mass ratio]4.0 {ratio} NormalCleveland ClinicComment on above:Performed By: #### CBC #### [facility] [address] [address] [address] Ashlie Potts NORMAL> or = 60 mg/dl - LOW CARDIOVASCULAR RISK <40 mg/dl - HIGH CARDIOVASCULAR RISKNoSelect Medical [facility] Hospital, AvonComment on above:Performed By: #### CBC #### [facility] [address] [address] [address] Ashlie Desai CALC NORMALSEE BELOWSumma HealthComment on above:Result Comment: <100 mg/dl OPTIMAL 100 - 129 mg/dl NEAR OR ABOVE OPTIMAL 130 - 159 mg/dl BORDERLINE HIGH 160 - 189 mg/dl HIGH >190 mg/dl VERY HIGH Performed By: #### CBC #### [facility] [address] [address] [address] Ashlie HillsTriglyceride [Mass/Vol]183 mg/dLCritically high<=150C[facility] ClinicComment on above:Performed By: #### CBC #### [facility] [address] [address] [address] Ashlie UnderwoodLDL CALC36.6 mg/dLNoSelect Medical [facility] Rehabilitation Hospital, AvonComment on above: Performed By: #### CBC #### [facility] [address] [address] [address] 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 LOCATION: [facility] BREAST COMPOSITION: Almost entirely fatty. [...] by: Patricia Veloz M.D. on 11/22/2022 at 12:09Summa HealthPROF 14(COMP METB)on [id number] [Mass/Vol]3.0 g/dLCritically low 3.4-5.0The [facility] Hospitalment on above:Performed By: #### CBC #### [facility] [address] [address] [address] Ashlie HillsAlbumin/Globulin [Mass ratio]0.6 {ratio}NormalThe [facility] HospitalComment on above:Performed By: #### CBC #### [facility] [address] [address] [address] Ashlie Gonzalez [Catalytic activity/Vol]68 U/UNcsffh98-573Gti [facility] HospitalComment on above:Performed By: #### CBC #### [facility] [address] [address] [address] Ashlie MoralesT [Catalytic activity/Vol]14 U/MSxqxhs53-63Eum [facility] HospitalComment on above:Performed By: #### CBC #### [facility] [address] [address] [address] Ashlie Hassanon gap [Moles/Vol]12.1 mmol/LNormalThe [facility] Comment on above:Performed By: #### CBC #### [facility] [address] [address] [address] Ashlie HillsAST [Catalytic activity/Vol]9 U/LCritically zfo59-02Qzu [facility] HospitalComment on above:Performed By: #### CBC #### [facility] [address] [address] [address] Ashlie HillsBilirubin [Mass/Vol]0.4 mg/dLNormal0.2-1.0The [facility] Comment on above:Performed By: #### CBC #### [facility] [address] [address] [address] Ashlie HillsCalcium [Mass/Vol]9.0 mg/dLNormal8.5-10.1[facility] Comment on above:Performed By: #### CBC #### [facility] [address] [place] [address] Dr. Ashlie HillsChloride [Moles/Vol]105 mmol/JLmvuth51-536Wue [facility] Comment on above:Performed By: #### CBC #### [facility] [address] [address] [address] Ashlie HillsCO2 [Moles/Vol]30.7 mmol/ANofiir66.0-32.0The [facility] Comment on above:Performed By: #### CBC #### [facility] [address] [address] [address] Ashlie Lopezatinine [Mass/Vol]0.77 mg/dLNormal0.55-1.02The [facility] HospitalComment on above:Performed By: #### CBC #### [facility] [address] [place] [address] Dr. Ashlie GrahamGFR-AF COOK ISLANDER>60Normal>=60The [facility] HospitalComment on above:Performed By: #### CBC #### [facility] [address] [place] [address] Dr. Ashlie GrahamGFR-NON AF COOK ISLANDER>60Normal>=60The [facility] HospitalComment on above:Performed By: #### CBC #### [facility] [address] [place] [address] Dr. Ashlie HillsGlobulin (S) [Mass/Vol]4.8 g/dLNormalThe [facility] HospitalComment on above:Performed By: #### CBC #### [facility] [address] [place] [address] Dr. Ashlie HillsGlucose [Mass/Vol]162 mg/dLCritically vvjn40-506VpjOhioHealth Grove City Methodist Hospitalment on above:Performed By: #### CBC #### [facility] [address] [place] [address] Dr. Ashlie HillsPotassium [Moles/Vol]3.8 mmol/LNormal3.5-5.1[facility] Comment on above:Performed By: #### CBC #### [facility] [address] [place] [address] Dr. Ashlie HillsProtein [Mass/Vol]7.8 g/dLNormal6.4-8.2[facility] Comment on above:Performed By: #### CBC #### [facility] [address] [place] [address] Dr. Ashlie HillsSodium [Moles/Vol]144 mmol/TJezwik488-995Xbn [facility] Comment on above:Performed By: #### CBC #### [facility] [address] [place] [address] Dr. Ashlie HillsUrea nitrogen [Mass/Vol]24.0 mg/dLCritically high7.0-18.0The [facility] HospitalComment on above:Performed By: #### CBC #### [facility] [address] [place] [address] Dr. Ashlie Jones nitrogen/Creatinine [Mass ratio]31.2 mg/mgNormalThe [facility] HospitalComment on above:Performed By: #### CBC #### [facility] [address] [place] [address] Dr. Ashlie Chinchilla AUTO DIFFon [id number] #0.1 103/ulNormal0.0-0.1The [facility] HospitalComment on above:Performed By: #### CBC #### [facility] [address] [place] [address] Dr. Ashlie HillsBasophils/100 WBC (Bld)0.6 %Normal0.2-2.0The [facility] Comment on above:Performed By: #### CBC #### [facility] [address] [place] [address] Dr. Ashlie Mcintosh #0.3 103/ulNormal0.0-0.7The [facility] HospitalComment on above: Performed By: #### CBC #### [facility] [address] [place] [address] Dr. Ashlie Grahamosinophils/100 WBC (Bld)2.1 %Normal0.9-7.0The [facility] Comment on above:Performed By: #### CBC #### [facility] [address] [place] [address] Dr. Ashlie Grahamrythrocyte distribution width (RBC) [Ratio]15.9 %Critically high 11.0-15.0The [facility] HospitalComment on above:Performed By: #### CBC #### [facility] [address] [place] [address] Dr. Ashlie HillsHematocrit (Bld) [Volume fraction]51.8 %Critically high36.0-48.0 The [facility] HospitalComment on above:Performed By: #### CBC #### [facility] [address] [address] [address] Ashlie HillsHemoglobin (Bld) [Mass/Vol]16.6 g/dLCritically high12.0-16.0The [facility] HospitalComment on above:Performed By: #### CBC #### [facility] [address] [place] [address] Dr. Ashlie Hunter #0.03 10e3/ulNormal0.00-0.03The [facility] HospitalComment on above:Performed By: #### CBC #### [facility] [address] [place] [address] Dr. Ashlie Hunter %0.2 %Normal0.0-0.5The [facility] HospitalComment on above: Performed By: #### CBC #### [facility] [address] [place] [address] Dr. Ashlie Swenson #3.9 103/ulCritically high1.2-3.8The [facility] Comment on above:Performed By: #### CBC #### [facility] [address] [place] [address] Dr. Ashlie Dsouzahocytes/100 WBC (Bld)31.7 %Iojqce50.5-60.0The [facility] HospitalComment on above:Performed By: #### CBC #### [facility] [address] [place] [address] Dr. Ashlie GhoshUAL DIFF REQNONormalThe [facility] HospitalComment on above: Performed By: #### CBC #### [facility] [address] [place] [address] Dr. Ashlie Mckeon (RBC) [Entitic mass]27.9 jcMmwzau43.7-34.0The [facility] HospitalComment on above:Performed By: #### CBC #### [facility] [address] [place] [address] Dr. Ashlie Mckeon (RBC) [Mass/Vol]32.0 g/fWEjyguh61.9-35.2The [facility] HospitalComment on above:Performed By: #### CBC #### [facility] [address] [address] [address] Ashlie MckeonV (RBC) [Entitic vol]87.1 cYWdmvsq16.0-99.0The [facility] HospitalComment on above:Performed By: #### CBC #### [facility] [address] [place] [address] Dr. Ashlie Killian #0.7 103/ulNormal0.3-0.8The [facility] HospitalComment on above:Performed By: #### CBC #### [facility] [address] [place] [address] Dr. Ashlie Palominoocytes/100 WBC (Bld)5.8 %Normal1.7-12.0[facility] Comment on above:Performed By: #### CBC #### [facility] [address] [place] [address] Dr. Ashlie Olsen #7.3 103/ulCritically high1.4-6.5The [facility] Comment on above:Performed By: #### CBC #### [facility] [address] [place] [address] Dr. Ashlie Quiñonesutrophils/100 WBC (Bld)59.6 %Cuqhrd08.0-75.0The [facility] HospitalComment on above:Performed By: #### CBC #### [facility] [address] [place] [address] Dr. Ashlie Lantigualet mean volume (Bld) [Entitic vol]11.7 fLNormal9.5-13.5The [facility] HospitalComment on above:Performed By: #### CBC #### [facility] [address] [place] [address] Dr. Ashlie HillsPLT117 103/ulCritically gcs399-547Sjr [facility] HospitalComment on above:Performed By: #### CBC #### [facility] [address] [place] [address] Dr. Ashlie HillsRBC5.95 106/ulCritically high4.20-5.40The [facility] Comment on above:Performed By: #### CBC #### [facility] [address] [address] [address] Ashlie HillsWBC12.3 103/ulCritically high4.0-11.0The [facility] Hospitalment on above:Performed By: #### CBC #### [facility] [address] [address] [address] Ashlie HillsCT ABD/PELV W CONon [id number] ABD/PELV W CONEXAM: CT ABD/PELV W CON [...] Electronically authenticated by: RICCO PICKARD Date: 2022-10-05 13:13[facility] URINE PROFILEon [id number] Ql (U)NegativeNormal NEGATIVEThe [facility] HospitalComment on above:Performed By: #### POCGLUC #### [facility] [address] [place] [address] Dr. Ashlie HillsClarity (U)CLEARNormalCLEARThe [facility] HospitalComment on above: Performed By: #### POCGLUC #### [facility] [address] [address] [address] Ashlie Prescottlor (U)YELLOWNormalYELLOWCleveland ClinicComment on above: Performed By: #### POCGLUC #### [facility] [address] [place] [address] Dr. Ashlie Clayton micrscopic examination will be performed if indicated. NormalSamaritan Hospital HospitalComment on above:Performed By: #### POCGLUC #### [facility] [address] [address] [address] Ashlie Rutledgeose Ql (U)NegativeNormalNEGATIVECleveland ClinicComment on above:Performed By: #### POCGLUC #### [facility] [address] [place] [address] Dr. Ashlie HillsHemoglobin Ql (U)NegativeNormalNEGATIVECleveland Clinic Comment on above:Performed By: #### POCGLUC #### [facility] [address] [place] [address] Dr. Ashlie HillsKetones Ql (U)NegativeNormalNEGATIVECleveland ClinicComment on above:Performed By: #### POCGLUC #### [facility] [address] [place] [address] Dr. Ashlie HillsLEUKOCYTESNegativeNormalNEGATIVECleveland ClinicComkalkaska memorial health center on above:Performed By: #### POCGLUC #### [facility] [address] [place] [address] Dr. Ashlie HillsNitrite Ql (U)NegativeNormalNEGATIVECleveland ClinicComment on above:Performed By: #### POCGLUC #### [facility] [address] [place] [address] Dr. Ashlie HillspH (U)6.0 [pH]Normal5-9C[facility] ClinicComment on above: Performed By: #### POCGLUC #### [facility] [address] [place] [address] Dr. Ashlie HillsProtein (U) [Mass/Vol]100 mg/dLAbnormalNEGATIVE/ TRACESamaritan Hospital HospitalComment on above:Performed By: #### POCGLUC #### [facility] [address] [address] [address] Ashlie HillsSPEC GRAVITY1.717Xjixuk1.005-<=1.025The [facility] HospitalComment on above:Performed By: #### POCGLUC #### [facility] [address] [address] [address] Ashlie Sullivan MICRO INDINDICATEDNormalThe [facility] HospitalComment on above: Performed By: #### POCGLUC #### [facility] [address] [address] [address] Ashlie Metzbilinogen Qn (U)1.0 {Little'U}/dLNormal0.2 - 1.0The [facility] HospitalComment on above:Performed By: #### POCGLUC #### [facility] [address] [place] [address] Dr. Ashlie HillsLIPASEon 15-54-7048Kfkkcu [Catalytic activity/Vol]1771.0 U/L Critically high73.0-393.0The [facility] HospitalComment on above:Performed By: #### CBC #### [facility] [address] [place] [address] Dr. Ashlie Sewell HCG QUALon 64-44-5591PIYZGFDXY, QUALNegativeNormalNEGATIVE The [facility] HospitalComment on above:Performed By: #### POCGLUC #### [facility] [address] [place] [address] Dr. Ashlie HillsPROF 14(COMP METB)on [id number] [Mass/Vol]3.2 g/dL Critically low3.4-5.0The [facility] HospitalComment on above:Performed By: #### CBC #### [facility] [address] [place] [address] Dr. Ashlie HillsAlbumin/Globulin [Mass ratio]0.7 {ratio}NormalThe [facility] on above:Performed By: #### CBC #### [facility] [address] [place] [address] Dr. Ashlie MoralesP [Catalytic activity/Vol]70 U/FLvsvix10-077Evn [facility] HospitalComment on above:Performed By: #### CBC #### [facility] [address] [address] [address] Ashlie MoralesT [Catalytic activity/Vol]11 U/LCritically sfp02-30Hky [facility] HospitalComment on above:Performed By: #### CBC #### [facility] [address] [address] [address] Ashlie Hassanon gap [Moles/Vol]10.3 mmol/LNormalThe [facility] Comment on above:Performed By: #### CBC #### [facility] [address] [address] [address] Ashlie HillsAST [Catalytic activity/Vol]11 U/LCritically aia42-73Yyp [facility] HospitalComment on above:Performed By: #### CBC #### [facility] [address] [address] [address] Ashlie HillsBilirubin [Mass/Vol]0.9 mg/dLNormal0.2-1.0[facility] Comment on above:Performed By: #### CBC #### [facility] [address] [address] [address] Ashlie HillsCalcium [Mass/Vol]9.3 mg/dLNormal8.5-10.1[facility] Comment on above:Performed By: #### CBC #### [facility] [address] [address] [address] Ashlie HillsChloride [Moles/Vol]105 mmol/RIizyvg75-353Krr [facility] Comment on above:Performed By: #### CBC #### [facility] [address] [address] [address] Ashlie HillsCO2 [Moles/Vol]30.6 mmol/GAjuspj31.0-32.0The [facility] Comment on above:Performed By: #### CBC #### [facility] [address] [address] [address] Ashlie HillsCreatinine [Mass/Vol]0.62 mg/dLNormal0.55-1.02The [facility] Hospitalment on above:Performed By: #### CBC #### [facility] [address] [address] [address] Ashlie GrahamGFR-AF COOK ISLANDER>60Normal>=60The [facility] HospitalComment on above:Performed By: #### CBC #### [facility] [address] [address] [address] Ashlie GrahamGFR-NON AF COOK ISLANDER>60Normal>=60The [facility] HospitalComment on above:Performed By: #### CBC #### [facility] [address] [address] [address] Ashlie HillsGlobulin (S) [Mass/Vol]4.6 g/dLNormalThe [facility] HospitalComkalkaska memorial [facility] on above:Performed By: #### CBC #### [facility] [address] [address] [address] Ashlie HillsGlucose [Mass/Vol]85 mg/wFDnxczi76-191RyfCleveland Clinic Comment on above:Performed By: #### CBC #### [facility] [address] [address] [address] Ashlie HillsPotassium [Moles/Vol]3.9 mmol/LNormal3.5-5.1The [facility] Comment on above:Performed By: #### CBC #### [facility] [address] [address] [address] Ashlie HillsProtein [Mass/Vol]7.8 g/dLNormal6.4-8.2[facility] Comment on above:Performed By: #### CBC #### [facility] [address] [address] [address] Ashlie HillsSodium [Moles/Vol]142 mmol/VDhixxq879-230Tmm [facility] Comment on above:Performed By: #### CBC #### [facility] [address] [address] [address] Ashlie HillsUrea nitrogen [Mass/Vol]12.0 mg/dLNormal7.0-18.0The [facility] Hospitalment on above:Performed By: #### CBC #### [facility] [address] [address] [address] Ashlie HillsUrea nitrogen/Creatinine [Mass ratio]19.4 mg/mgNoSelect Medical [facility], AvonComkalkaska memorial health center on above:Performed By: #### CBC #### [facility] [address] [address] [address] Ashlie Recinos MICROSCOPIC ONLYon 55-30-8842LCHECHOTUZTOXGmyqkwmsITIE SEEN [facility] ClinicComkalk[facility] on above:Performed By: #### POCGLUC #### [facility] [address] [address] [address] Ashlie Cortez identified Cx Nom (U)NOT INDICATEDSumma HealthComkalkaska memorial health center on above:Performed By: #### POCGLUC #### [facility] [address] [place] [address] Dr. Ashlie Thibodeaux SEENNormalNONE SEENGeorgetown [facility]al [facility] on above:Performed By: #### POCGLUC #### [facility] [address] [place] [address] Dr. Ashlie Boyerystals LM Nom (Urine sed)NONE SEENNormalNONE SEENGeorgetown Behavioral Hospital on above:Performed By: #### POCGLUC #### [facility] [address] [place] [address] Dr. Dailey ChangEpithelial cells LM Ql (Urine sed)MODERATEAbnormalNONE SEEN /RARE The [facility] HospitalComkalkaska memorial [facility] on above:Performed By: #### POCGLUC #### [facility] [address] [place] [address] Dr. Ashlie SuarezCOUSNONE SEENNormalNONE SEENGeorgetown Behavioral Hospital on above:Performed By: #### POCGLUC #### [facility] [address] [place] [address] Dr. Ashlie PruettYwechRYH9-3Mvgwmv6-5Ahh [facility] on above:Performed By: #### POCGLUC #### [facility] [address] [place] [address] Dr. Ashlie BhaktaBC0-2AbnormalNONE SEENUniversity [facility] on above: Performed By: #### POCGLUC #### [facility] [address] [address] [address] Ashlie Tapia-19 PCR ([facility])on 34-56-7518MIDC-CoV-2 (COVID-19) RNA MADDY+probe Ql (Unsp spec)DetectedAbnormalNOT DETECTEDThe [facility] on above:Result Comment: This test is not yet approved or cleared by the [place] FDA. When there are no FDA-approved or cleared tests available, and other criteria are met, FDA can make tests available under an emergency access mechanism called an Emergency Use Authorization (EUA). The EUA for this test is supported by the Javascript Software Engineer of Health and Human Service's declaration [...] longer be used).Performed By: #### CVDAGS #### [facility] [address] [place] [address] Dr. Ashlie Centeno AND B AGon 72-34-3577RIIDXSCJHDXMHLicking Memorial Hospital on above:Result Comment: Negative for Flu A protein angiten. Infection due to Flu A cannot be ruled out. FluA angiten in the sample may be below the detection limit of the test.Performed By: #### INFLUAB #### [facility] [address] [address] [address] Ashlie HillsINFLUBNEGHSEE [facility] on above: Result Comment: Negative for Flu B protein antigen. Infection due to Flu B cannot be ruled out. FluB antigen in the sample may be below the detection limit of the test.Performed By: #### INFLUAB #### [facility] [address] [place] [address] Dr. Ashlie Centeno AGNegativeNormalNEGATIVE SEE COMMENTThe [facility] HospitalComment on above:Performed By: #### INFLUAB #### [facility] [address] [place], [place] [address] Dr. Ashlie Shaffer AGNegativeNormalNEGATIVE SEE COMMENTThe [facility] HospitalComment on above:Performed By: #### INFLUAB #### [facility] [address] [place], [place] [address] Dr. Ashlie HillsCT ABD/PELV W CONon 33-25-2052CU ABD/PELV W CONINDICATION: Disorder of adrenal gland [...] dating back to at least 10/21/2018, unchanged. https://www.ncbi.nlm.nih.gov/pmc/articles/RQP1379652/ Electronically authenticated by: COLLIN HUERTAS Date: 2022-07-27 14:56Summa HealthCREATININEon 88-36-7663Zcrmzlopvf [Mass/Vol]0.81 mg/dLNormal 0.55-1.02[facility] ClinicComment on above:Performed By: #### CBC #### [facility] [address] [address] [address] Ashlie GrahamGFR-AF COOK ISLANDER>60Normal>=60The [facility] on above:Performed By: #### CBC #### [facility] [address] [address] [address] Ashlie GrahamGFR-NON AF COOK ISLANDER>60Normal>=60The [facility]fredo HospitalComment on above:Performed By: #### CBC #### [facility] [id number] Ashlie Radford LOW EXT W CONT LTon 36-96-3301TU LOW EXT W CONT LTEXAMINATION: CT LOW [...] Electronically authenticated by: PATRICIA VELOZ Date: 2022-07-18 14:58NoSelect Medical [facility] Hospital, AvonXR KNEE LT 1_2 Von 96-92-3554MR KNEE LT 1_2 VEXAM: XR KNEE LT [...] Electronically authenticated by: HATTIE BAUTISTA Date: 2022-07-18 12:00Summa HealthCovid-19 PCR (CVDTBH)on 67-25-3812VTKB-CoV-2 (COVID-19) RNA MADDY+probe Ql (Unsp spec)Not detectedNormalNOT DETECTEDCleveland Clinic Comment on above:Result Comment: This test is not yet approved or cleared by the [place] FDA. When there are no FDA-approved or cleared tests available, and other criteria are met, FDA can make tests available under an emergency access mechanism called an Emergency Use Authorization (EUA). The EUA for this test is supported by the [place] of Health and Human Service's (HHS's) declaration [...] consistent with SARS-CoV-2.Performed By: #### CBC #### [facility] [address] [place] [address] Dr. Ashlie Centeno AND [facility] 76-75-5375BGBWRGRSCTGOBUniversity Hospitals Ahuja Medical CenterComment on above:Result Comment: Negative for Flu A protein angiten. Infection due to Flu A cannot be ruled out. FluA angiten in the sample may be below the detection limit of the test.Performed By: #### CBC #### [facility] [address] [place] [address] Dr. Ashlie VelasquezUBNEGDEDRICK [facility] on above: Result Comment: Negative for Flu B protein antigen. Infection due to Flu B cannot be ruled out. FluB antigen in the sample may be below the detection limit of the test.Performed By: #### CBC #### [facility] [address] [place] [address] Dr. Ashlie Centeno AGNegativeNormalNEGATIVE SEE COMMENTThe [facility] on above:Performed By: #### CBC #### [facility] [address] [place] [address] Dr. Ashlie Lockhart B AGNegativeNormalNEGATIVE SEE COMMENTThe [facility] on above:Performed By: #### CBC #### [facility] [address] [place] [address] Dr. Ashlie HillsPOINT OF CARE GLUCOSEon 08-22-7979Qwhwjme [Mass/Vol]108 mg/dL Critically xvqd70-682Xph [facility] HospitalComkalkaska memorial [facility] center on above:Performed By: #### CBC #### [facility] [address] [place] [address] Dr. Ashlie HillsANA by IFAon 62-57-0109Zvibmyniglp Antibodies, IFANegativeNormal The [facility] on above:Result Comment: Negative <1:80 Borderline 1:80 Positive >1:80 ICAP nomenclature: AC-0 For more information about Hep-2 cell patterns use ANApatterns.org, the official website for the International Consensus on Antinuclear Antibody (RAGHU) Patterns (ICAP).Performed By: #### ANAIFA #### [facility] [address] [place] [address] Dr. Ashlie HillsIMMUNOFIXATION (TREVON), URINEon [id number] Interpretation:U CommentNormalThe [facility] on above:Result Comment: No monoclonality detected.Performed By: #### CBC #### [facility] [address] [place] [address] Dr. Ashlie HillsIMMUNOFIXATION(TREVON),PROTEIN ELEC(PE),FREon 83-85-6026Upfkujh [Mass/Vol]3.0 g/dLNormal2.9-4.4The [facility] Hospitalment on above:Performed By: #### INFLUAB #### [facility] [address] [place] [address] Dr. Ashlie HillsAlbumin/Globulin [Mass ratio]0.8 {ratio}Normal0.7-1.7The [facility] on above:Performed By: #### INFLUAB #### [facility] [address] [place] [address] Dr. Ashlie HillsMwwehIuais-5-Auvdivar7.3 g/dLNormal0.0-0.4ThSelect Medical Specialty Hospital - Boardman, IncComment on above:Performed By: #### INFLUAB #### [facility] [address] [place] [address] Dr. Ashlie HillsKicheCheow-0-Pahtbhvp5.0 g/dLNormal0.4-1.0[facility] ClinicComment on above:Performed By: #### INFLUAB #### [facility] [address] [place] [address] Dr. Ashlie HillsBeta Globulin1.8 g/dLCritically high0.7-1.3TProtestant Hospital Comment on above:Performed By: #### INFLUAB #### [facility] [address] [place] [address] Dr. Ashlie Skelton [place] Lt Chains,S45.2 mg/LCritically high3.3-19.4ThSelect Medical Specialty Hospital - Boardman, IncComment on above:Performed By: #### INFLUAB #### [facility] [address] [place] [address] Dr. Ashlie Skelton Lambda Lt Chains,S40.3 mg/LCritically high5.7-26.3TProtestant HospitalComment on above:Performed By: #### INFLUAB #### [facility] [address] [place] [address] Dr. Ashlie HillsGamma Globulin0.8 g/dLNormal0.4-1.8The [facility] HospitalComment on above:Performed By: #### INFLUAB #### [facility] [address] [place] [address] Dr. Ashlie HillsGlobulin (S) [Mass/Vol]3.9 g/dLNormal2.2-3.9[facility] Comment on above:Performed By: #### INFLUAB #### [facility] [address] [place] [address] Dr. Ashlie HillsImmunofixation Result, SerumCommentNoSelect Medical [facility] Comment on above:Result Comment: No monoclonality detected.Performed By: #### INFLUAB #### [facility] [address] [address] [address] Ashlie HillsImmunoglobulin A, Qn, Yyndi845 mg/dLCritically rkrr92-274Sge [facility] Hospitalment on above:Performed By: #### INFLUAB #### [facility] [address] [place] [address] Dr. Ashlie HillsImmunoglobulin G, Qn, Fzlfy214 mg/eCBtmgxf523-6944Ybb [facility] HospitalComkalkaska memorial health center on above:Performed By: #### INFLUAB #### [facility] [address] [place] [address] Dr. Ashlie HillsImmunoglobulin M, Qn, Serum39 mg/qOUhnlqa81-550Jrl [facility] HospitalComkalkaska memorial health center on above:Performed By: #### INFLUAB #### [facility] [address] [place] [address] Dr. Ashlie HillsKappa/Lambda Ratio, S1.18Hdghxr1.26-1.65[facility] Comment on above:Performed By: #### INFLUAB #### [facility] [address] [place] [address] Dr. Ashlie HillsM-SpikeNot ObservedNormalNot ObservedThe [facility] HospitalComkalkaska memorial health center on above:Performed By: #### INFLUAB #### [facility] [address] [place] [address] Dr. Ashlie Bradford.NormalThe [facility] on above:Performed By: #### INFLUAB #### [facility] [address] [place] [address] Dr. Ashlie Fletcher note:CommentNormalThe [facility] on above: Result Comment: Protein electrophoresis scan will follow via computer, mail, or field artillery fire control man delivery.Performed By: #### INFLUAB #### [facility] [address] [place] [address] Dr. Ashlie HillsProtein [Mass/Vol]6.9 g/dLNormal6.0-8.5ThSelect Medical Specialty Hospital - [facility], Inc Comment on above:Performed By: #### INFLUAB #### [facility] [address] [place] [address] Dr. Ashlie HillsC-PEPTIDE, SERUMon 10-20-1115V-Peptide, Serum3.1 ng/mLNormal 1.1-4.4The [facility] HospitalComment on above:Result Comment: C-Peptide reference interval is for fasting patients.Performed By: #### CPEPT #### [facility] [address] [place] [address] Dr. Ashlie Sandoval B SURFACE ANTIGEN SCREENon 64-65-0505DMcUv ScreenNegative NormalNegativeThe [facility] HospitalComment on above:Performed By: #### CBC #### [facility] [address] [place] [address] Dr. Ashlie ChuaTIS C VIRUS AB W/ REFLEX QUANTon [id number] AB<0.1Normal 0.0-0.9The [facility] Hospitalment on above:Performed By: #### INFLUAB #### [facility] [address] [place] [address] Dr. Ashlie HillsInterpretation:CommentNormalThe [facility] HospitalComment on above:Result Comment: Negative Not infected with HCV, unless recent infection is suspected or other evidence exists to indicate HCV infection.Performed By: #### INFLUAB #### [facility] [address] [place] [address] Dr. Ashlie HillsMICROALBUMIN/ CREATININE RATIOon 91-92-7614Zatigst, Ckkak222.4 ug/mLNormalNot Estab.The [facility] HospitalComkalkaska memorial health center on above:Performed By: #### CBC #### [facility] [address] [place] [address] Dr. Ashlie HillsAlbumin/ Creatinine Tjccf212 mg/g creatCritically high0-29The [facility] HospitalComment on above:Result Comment: Normal: 0 - 29 Moderately increased: 30 - 300 Severely increased: >300Performed By: #### CBC #### [facility] [address] [place] [address] Dr. Ashlie HillsCreatinine, Giwyu947.9 mg/dLNormalNot Estab.The [facility] Comment on above:Performed By: #### CBC #### [facility] [address] [address] [address] Ashlie Ramsey 25-[place] LABCORPon 10-85-5182Pobxyco D, 25-Hydroxy<4.0 Critically low30.0-100.0The [facility] on above:Result Comment: Vitamin D deficiency has been defined by the [place] of Medicine and an Endocrine Society practice guideline as a level of serum 25-OH vitamin D less than 20 ng/mL (1,2). The Endocrine Society went on to further define vitamin D insufficiency as a level between 21 and 29 ng/mL (2). 1. IOM ([place] of Medicine). 2010. Dietary reference intakes for calcium and D. [place]: The National Academies Press. 2. Lynda MF, Keely OLIVEROS, Leandra LOPEZ, et al. Evaluation, treatment, and prevention of vitamin D deficiency: an Endocrine Society clinical practice guideline. JCEM. 2010; 96(7):1911-30.Performed By: #### CBC #### [facility] [address] [place] [address] Dr. Ashlie HillsGLYCOHEMOGLOBIN A1Con 32-14-2113YYK RECOMMENDATIONSEE BELOWNormal The [facility] HospitalComment on above:Result Comment: ADA RECOMMENDED LIMIT 4.0 - 6.0 ADA THERAPEUTIC TARGET < 7.0 ACTION SUGGESTED > 7.0Performed By: #### CVDAGS #### [facility] [address] [address] [address] Ashlie HillsGlucose [Mass/Vol]295 mg/dLNormalThe [facility] HospitalComment on above:Performed By: #### CVDAGS #### [facility] [address] [address] [address] Ashlie HillsHbA1c (Bld) [Mass fraction]11.9 %Critically high4.5-6.2The [facility] HospitalComment on above:Performed By: #### CVDAGS #### [facility] [address] [place] [address] Dr. Ashlie HillsHEMOGRAM AND PLATELon 18-55-2363Iskscurbqx (Bld) [Volume fraction]56.3 %Critically high36.0-48.0The [facility] HospitalComment on above: Performed By: #### CVDAGS #### [facility] [address] [place] [address] Dr. Ashlie HillsHemoglobin (Bld) [Mass/Vol]18.0 g/dLCritically high12.0-16.0The [facility] HospitalComment on above:Performed By: #### CVDAGS #### [facility] [address] [place] [address] Dr. Ashlie MckeonH (RBC) [Entitic mass]29.5 iuLxvzuf30.7-34.0The [facility] HospitalComment on above:Performed By: #### CVDAGS #### [facility] [address] [place] [address] Dr. Ashlie Mckeon (RBC) [Mass/Vol]32.0 g/hKYusovv45.9-35.2The [facility] HospitalComment on above:Performed By: #### CVDAGS #### [facility] [address] [place] [address] Dr. Ashlie MckeonV (RBC) [Entitic vol]92.1 aGElldwl25.0-99.0The [facility] HospitalComment on above:Performed By: #### CVDAGS #### [facility] [address] [place] [address] Dr. Ashlie HillsPLT123 103/ulCritically zkz881-162Jrk [facility] HospitalComment on above:Performed By: #### CVDAGS #### [facility] [address] [place] [address] Dr. Ashlie HillsRBC6.11 106/ulCritically high4.20-5.40The [facility] Comment on above:Performed By: #### CVDAGS #### [facility] [address] [place] [address] Dr. Ashlie HillsWBC16.4 103/ulCritically high4.0-11.0The [facility] HospitalComment on above:Performed By: #### CVDAGS #### [facility] [address] [place], [place] [id number] Dr. Ashlie OmerID PROFILEon 99-98-8082SRQR-HDL RATIO NORMSTriHealthComment on above:Result Comment: 3.3 - 4.4 LOW RISK 4.4 - 7.1 AVERAGE RISK 7.1 - 11.0 MODERATE RISK >11.0 HIGH RISKPerformed By: #### CVDAGS #### [facility] [address] [place] [address] Dr. Ashlie HillsCholesterol [Mass/Vol]159 mg/dLNormal<=200[facility] Comment on above:Performed By: #### CVDAGS #### [facility] [address] [place] [address] Dr. Ashlie HillsCholesterol in HDL [Mass/Vol]40 mg/jHGiirye42-17DdsCleveland ClinicComment on above:Performed By: #### CVDAGS #### [facility] [address] [place] [address] Dr. Ashlie HillsCholesterol in LDL [Mass/Vol]81.8 mg/dLSumma HealthComment on above:Performed By: #### CVDAGS #### [facility] [address] [place] [address] Dr. Ashlie Lopezesteroralia.total/Cholesterol in HDL [Mass ratio]4.0 {ratio} NormalCleveland ClinicComment on above:Performed By: #### CVDAGS #### [facility] [address] [place] [address] Dr. Ashlie Potts NORMAL> or = 60 mg/dl - LOW CARDIOVASCULAR RISK <40 mg/dl - HIGH CARDIOVASCULAR RISKSumma HealthComment on above:Performed By: #### CVDAGS #### [facility] [address] [place] [address] Dr. Ashlie HillsLDL CALC NORMALSEE [facility] HospitalComment on above:Result Comment: <100 mg/dl OPTIMAL 100 - 129 mg/dl NEAR OR ABOVE OPTIMAL 130 - 159 mg/dl BORDERLINE HIGH 160 - 189 mg/dl HIGH >190 mg/dl VERY HIGH Performed By: #### CVDAGS #### [facility] [address] [address] [address] Ashlie HillsTriglyceride [Mass/Vol]186 mg/dLCritically high<=150The [facility] HospitalComment on above:Performed By: #### CVDAGS #### [facility] [address] [address] [address] Ashlie HillsVLDL CALC37.2 mg/dLNormalThe [facility] HospitalComment on above: Performed By: #### CVDAGS #### [facility] [address] [address] [address] Ashlie Rhodes FUNCTION PANELon 14-09-3858Nlnroza [Mass/Vol]3.1 g/dL Critically low3.4-5.0The [facility] HospitalComment on above:Performed By: #### CBC #### [facility] [address] [address] [address] Ashlie HillsCalcium [Mass/Vol]9.2 mg/dLNormal8.5-10.1The [facility] Comment on above:Performed By: #### CBC #### [facility] [address] [address] [address] Ashlie HillsChloride [Moles/Vol]102 mmol/KGizror21-740Kxw [facility] Comment on above:Performed By: #### CBC #### [facility] [address] [address] [address] Ashlie HillsCO2 [Moles/Vol]31.9 mmol/CYrexdh87.0-32.0The [facility] Comment on above:Performed By: #### CBC #### [facility] [address] [address] [address] Ashlie HillsCreatinine [Mass/Vol]0.68 mg/dLNormal0.55-1.02The [facility] HospitalComment on above:Performed By: #### CBC #### [facility] [address] [address] [address] Dailey ChangEGFR-AF COOK ISLANDER>60Normal>=60The [facility] HospitalComment on above:Performed By: #### CBC #### [facility] [address] [address] [address] Ashlie GrahamGFR-NON AF COOK ISLANDER>60Normal>=60The [facility] HospitalComment on above:Performed By: #### CBC #### [facility] [address] [address] [address] Ashlie HillsGlucose [Mass/Vol]131 mg/dLCritically lmtj77-004Rwi [facility] HospitalComment on above:Performed By: #### CBC #### [facility] [address] [address] [address] Ashlie HillsPhosphate [Mass/Vol]4.0 mg/dLNormal2.6-4.7The [facility] Comment on above:Performed By: #### CBC #### [facility] [address] [address] [address] Ashlie HillsPotassium [Moles/Vol]4.0 mmol/LNormal3.5-5.1[facility] Comment on above:Performed By: #### CBC #### [facility] [address] [address] [address] Ashlie HillsSodium [Moles/Vol]141 mmol/UDalxuj474-391HhlCleveland Clinic Comment on above:Performed By: #### CBC #### [facility] [address] [address] [address] Ashlie HillsUrea nitrogen [Mass/Vol]17.0 mg/dLNormal7.0-18.0The [facility] HospitalComment on above:Performed By: #### CBC #### [facility] [address] [address] [address] Ashlie HillsUA RANDOM W/MICROSCOPICon [id number] SEENNormalNONE SEENThe [facility] HospitalComment on above:Performed By: #### INFLUAB #### [facility] [address] [address] [address] Ashlie HillsBilirubin Ql (U)NegativeNormalNEGATIVEThe [facility] Comment on above:Performed By: #### INFLUAB #### [facility] [address] [address] [address] Ashlie HillsCASTNONE SEENNormalNONE SEENCleveland ClinicComment on above:Performed By: #### INFLUAB #### [facility] [address] [address] [address] Ashlie Chilel (U)CLEARNormalCLEARCleveland ClinicComment on above: Performed By: #### INFLUAB #### [facility] [address] [place] [address] Dr. Ashlie Prescottlor (U)YELLOWNormalYELLOWCleveland ClinicComment on above: Performed By: #### INFLUAB #### [facility] [address] [place] [address] Dr. Ashlie HillsCrystals LM Nom (Urine sed)NONE SEENNormalNONE SEENCleveland ClinicComment on above:Performed By: #### INFLUAB #### [facility] [address] [place] [address] Dr. Dailey ChangEpithelial cells LM Ql (Urine sed)FEWAbnormalNONE SEEN /RARECleveland ClinicComment on above:Performed By: #### INFLUAB #### [facility] [address] [place] [address] Dr. Ashlie HillsGlucose Ql (U)NegativeNormalNEGATIVECleveland ClinicComment on above:Performed By: #### INFLUAB #### [facility] [address] [place] [address] Dr. Ashlie HillsHemoglobin Ql (U)NegativeNormalNEGATIVELakehealth Beachwood Medical Center on above:Performed By: #### INFLUAB #### [facility] [address] [place] [address] Dr. Ashlie HillsKetones Ql (U)NegativeNormalNEGATIVECleveland ClinicComment on above:Performed By: #### INFLUAB #### [facility] [address] [place] [address] Dr. Ashlie HillsLEUKOCYTESNegativeNormalNEGATIVECleveland ClinicComment on above:Performed By: #### INFLUAB #### [facility] [address] [place] [address] Dr. Ashlie SuarezCOUSCHAD SEENNormalNONE SEENThe [facility] HospitalComment on above:Performed By: #### INFLUAB #### [facility] [address] [place] [address] Dr. Ashlie Santostrite Ql (U)NegativeNormalNEGATIVEThe [facility] HospitalComment on above:Performed By: #### INFLUAB #### [facility] [address] [place] [address] Dr. Ashlie HillspH (U)5.5 [pH]Normal5-9The [facility] HospitalComment on above: Performed By: #### INFLUAB #### [facility] [address] [place] [address] Dr. Ashlie HillsRgkxhHMI5-2Bmwbwl0-0Tax [facility] HospitalComment on above:Performed By: #### INFLUAB #### [facility] [address] [place] [address] Dr. Ashlie HillsSPEC GRAVITY>=1.229Cqtwvafy9.005-<=1.025The [facility] Comment on above:Performed By: #### INFLUAB #### [facility] [address] [place] [address] Dr. Ashlie Vaughn AYETTNX254 mg/dlAbnormalNEGATIVE/ TRACEThe [facility] Comment on above:Performed By: #### INFLUAB #### [facility] [address] [place] [address] Dr. Ashlie Metzbilinogen Qn (U)0.2 {Little'U}/dLNormal0.2 - 1.0The [facility] HospitalComment on above:Performed By: #### INFLUAB #### [facility] [address] [place] [address] Dr. Ashlie HillsWBCNONTracey SEENNormalNONE SEENThe [facility] HospitalComment on above: Performed By: #### INFLUAB #### [facility] [address] [place] [address] Dr. Ashlie Christine ACID SERUMon 85-91-9721Semhh [Mass/Vol]5.0 mg/dLNormal 2.6-6.0The [facility] HospitalComment on above:Performed By: #### INFLUAB #### [facility] [address] [address] [address] Ashlie Recinos T PROTEIN CREAT RATIOon 52-45-8253Iwhwjzs (U) [Mass/Vol] 77.9 mg/dLCritically high<=12.0The [facility] HospitalComment on above:Performed By: #### CVDAGS #### [facility] [address] [place] [address] Dr. Ashlie Sullivan PROT CREAT RAT0.44NormalThe [facility] HospitalComment on above: Performed By: #### CVDAGS #### [facility] [address] [place] [address] Dr. Ashlie Recinos HSCGI282.15 mg/iBBzieai73.00-300.00[facility] Comment on above:Performed By: #### CVDAGS #### [facility] [address] [place] [address] Dr. Ashlie OrdoñezLTREGINO URINEon 49-70-1393IYICEJB URINECulture Observations: GREATER THAN TWO ORGANISMS PRESENT, HEAVILY MIXED. PLEASE RESUBMIT CLEAN CATCH MID-STREAM URINE IF CLINICALLY INDICATED.NormalThe [facility] HospitalComment on above:Performed By: #### INFLUAB #### [facility] [address] [place] [address] Dr. Ashlie VernonC AUTO DIFFon [id number] #0.1 103/ulNormal0.0-0.1The [facility] HospitalComment on above:Performed By: #### CBC #### [facility] [address] [place] [address] Dr. Ashlie HillsBasophils/100 WBC (Bld)0.5 %Normal0.2-2.0[facility] Comment on above:Performed By: #### CBC #### [facility] [address] [place] [address] Dr. Ashlie Mcintosh #0.4 103/ulNormal0.0-0.7The [facility] HospitalComment on above: Performed By: #### CBC #### [facility] [address] [address] [address] Ashlie Grahamosinophils/100 WBC (Bld)2.4 %Normal0.9-7.0[facility] Comment on above:Performed By: #### CBC #### [facility] [address] [place] [address] Dr. Ashlie Grahamrythrocyte distribution width (RBC) [Ratio]14.1 %Gonbif94.0-15.0 [facility] ClinicComment on above:Performed By: #### CBC #### [facility] [address] [place] [address] Dr. Ashlie HillsHematocrit (Bld) [Volume fraction]55.9 %Critically high36.0-48.0 The [facility] HospitalComment on above:Performed By: #### CBC #### [facility] [address] [place] [address] Dr. Ashlie HillsHemoglobin (Bld) [Mass/Vol]17.9 g/dLCritically high12.0-16.0[facility] ClinicComment on above:Performed By: #### CBC #### [facility] [address] [place] [address] Dr. Ashlie Hunter #0.06 10e3/ulCritically high0.00-0.03The [facility] Comment on above:Performed By: #### CBC #### [facility] [address] [place] [address] Dr. Ashlie Hunter %0.4 %Normal0.0-0.5ThSelect Medical Specialty Hospital - Boardman, IncComment on above: Performed By: #### CBC #### [facility] [address] [place] [address] Dr. Ashlie Swenson #5.8 103/ulCritically high1.2-3.8The [facility] Comment on above:Performed By: #### CBC #### [facility] [address] [place] [address] Dr. Ashlie Jademphocytes/100 WBC (Bld)35.4 %Ytvesg32.5-60.0The [facility] HospitalComment on above:Performed By: #### CBC #### [facility] [address] [place] [address] Dr. Ashlie GhoshUAL DIFF REQNONormalThe [facility] HospitalComment on above: Performed By: #### CBC #### [facility] [address] [place] [address] Dr. Ashlie Mckeon (RBC) [Entitic mass]29.4 ecRkkkng98.7-34.0The [facility] HospitalComment on above:Performed By: #### CBC #### [facility] [address] [place] [address] Dr. Ashlie Mckeon (RBC) [Mass/Vol]32.0 g/dIXvfpir02.9-35.2The [facility] HospitalComment on above:Performed By: #### CBC #### [facility] [address] [place] [address] Dr. Ashlie Mckeon (RBC) [Entitic vol]91.8 pTOnslgl98.0-99.0The [facility] HospitalComment on above:Performed By: #### CBC #### [facility] [address] [place] [address] Dr. Ashlie Killian #0.8 103/ulNormal0.3-0.8The [facility] HospitalComment on above:Performed By: #### CBC #### [facility] [address] [place] [address] Dr. Ashlie Palominoocytes/100 WBC (Bld)4.8 %Normal1.7-12.0[facility] Comment on above:Performed By: #### CBC #### [facility] [address] [place] [address] Dr. Ashlie Olsen #9.3 103/ulCritically high1.4-6.5The [facility] Comment on above:Performed By: #### CBC #### [facility] [address] [address] [address] Ashlie HillsNeutrophils/100 WBC (Bld)56.5 %Ncyoix65.0-75.0The [facility] HospitalComment on above:Performed By: #### CBC #### [facility] [address] [address] [address] Ashlie HillsPlatelet mean volume (Bld) [Entitic vol]12.9 fLNormal9.5-13.5The [facility] HospitalComment on above:Performed By: #### CBC #### [facility] [address] [address] [address] Ashlie HillsPLT127 103/ulCritically ula116-072Ito [facility] HospitalComment on above:Performed By: #### CBC #### [facility] [address] [address] [address] Ashlie HillsRBC6.09 106/ulCritically high4.20-5.40The [facility] Comment on above:Performed By: #### CBC #### [facility] [address] [address] [address] Ashlie HillsWBC16.4 103/ulCritically high4.0-11.0The [facility] Hospitalment on above:Performed By: #### CBC #### [facility] [address] [address] [address] Ashlie HillsCT ABD/PELVIS WO CONon [id number] ABD/PELVIS WO CON Begin Addendum #1 Mildly [...] without diverticulitis. Severe right hip degenerative change.NormalThe [facility] URINE PROFILEon 03-66-6213Xwkwramtl Ql (U) NegativeNormalNEGATIVEThe [facility] HospitalComment on above:Performed By: #### EVONNE CLAY #### [facility] [address] [place] [address] Dr. Ashlie Chilel (U)CLEARNormalCLEARThe Wilfredo HospitalComment on above: Performed By: #### KRISTINAR, UMICRO #### [facility] [address] [address] [address] Ashlie Roberts (U) ORANGEAbnormalYELLOWCleveland ClinicComment on above:Performed By: #### OBED, UMICRO #### [facility] [address] [address] [address] Ashlie Clayton micrscopic examination will be performed if indicated. NormalCleveland ClinicComment on above:Performed By: #### KRISTINAR, UMICRO #### [facility] [address] [address] [address] Ashlie HillsGlucose Ql (U)250 mg/dlAbnounc healthNEGKettering Health Springfield Comment on above:Performed By: #### OBED, UMICRO #### [facility] [address] [address] [address] Ashlie HillsHemoglobin Ql (U)NegativermalNEGKettering Health Springfield Comment on above:Performed By: #### OBED, UMICRO #### [facility] [address] [address] [address] Ashlie Connor Ql (U)NegativeNormalNEGATIVECleveland ClinicComment on above:Performed By: #### OBED, UMICRO #### [facility] [address] [address] [address] Ashlie HillsLEUKOCYTESNegativeNormalNEGKettering Health SpringfieldComment on above:Performed By: #### KRISTINAR, UMICRO #### [facility] [address] [address] [address] Ashlie Santostrite Ql (U)NegativeNormalNEGATIVECleveland ClinicComment on above:Performed By: #### ERUR, UMICRO #### [facility] [address] [address] [address] Ashlie HillspH (U)5.0 [pH]Normal5-9[facility] ClinicComment on above: Performed By: #### ERUR, UMICRO #### [facility] [address] [place] [address] Dr. Ashlie HillsProtein (U) [Mass/Vol]100 mg/dLAbnormalNEGATIVE/ TRACEThe [facility] HospitalComment on above:Performed By: #### MADELINE CLAYRO #### [facility] [address] [place] [address] Dr. Ashlie HillsSPEC GRAVITY>=1.676Ozrnvnro1.005-<=1.025The [facility] Comment on above:Performed By: #### MADELINE CLAYRO #### [facility] [address] [place] [address] Dr. Ashlie Sullivan MICRO INDINDICATEDNoSelect Medical [facility] Clinic Rehabilitation Hospital, AvonComment on above: Performed By: #### EVONNE CLAY #### [facility] [address] [place] [address] Dr. Ashlie Metzbilinogen Qn (U)1.0 {Little'U}/dLNormal0.2 - 1.0The [facility] HospitalComment on above:Performed By: #### EVONNE CLAY #### [facility] [address] [place] [address] Dr. Ashlie Jones CHEM 8 (BAS METB)on 54-21-2075Kxbhv gap [Moles/Vol]12.1 mmol/LNormalThe [facility] HospitalComment on above:Performed By: #### INFLUAB #### [facility] [address] [place] [address] Dr. Ashlie HillsCalcium [Mass/Vol]9.0 mg/dLNormal8.5-10.1[facility] Comment on above:Performed By: #### INFLUAB #### [facility] [address] [place] [address] Dr. Ashlie HillsChloride [Moles/Vol]101 mmol/BZqprgd63-805KzjC[facility] Clinic Comment on above:Performed By: #### INFLUAB #### [facility] [address] [place] [address] Dr. Ashlie HillsCO2 [Moles/Vol]29.1 mmol/JAgqzbq39.0-32.0[facility] Comment on above:Performed By: #### INFLUAB #### [facility] [address] [place] [address] Dr. Ashlie HillsCreatinine [Mass/Vol]0.86 mg/dLNormal0.55-1.02The [facility] HospitalComment on above:Performed By: #### INFLUAB #### [facility] [address] [place] [address] Dr. Dailey ChangEGFR-AF COOK ISLANDER>60Normal>=60The [facility] HospitalComment on above:Performed By: #### INFLUAB #### [facility] [address] [place] [address] Dr. Ashlie GrahamGFR-NON AF COOK ISLANDER>60Normal>=60The [facility] HospitalComment on above:Performed By: #### INFLUAB #### [facility] [address] [place] [address] Dr. Ashlie HillsGlucose [Mass/Vol]236 mg/dLCritically yjcn70-922Raa [facility] HospitalComment on above:Performed By: #### INFLUAB #### [facility] [address] [place] [address] Dr. Ashlie HillsPotassium [Moles/Vol]4.2 mmol/LNormal3.5-5.1The [facility] Comment on above:Performed By: #### INFLUAB #### [facility] [address] [place] [address] Dr. Ashlie HillsSodium [Moles/Vol]138 mmol/PEzntzw965-554Txg [facility] Comment on above:Performed By: #### INFLUAB #### [facility] [address] [place] [address] Dr. Ashlie HillsUrea nitrogen [Mass/Vol]11.0 mg/dLNormal7.0-18.0The [facility] HospitalComment on above:Performed By: #### INFLUAB #### [facility] [address] [place] [address] Dr. Yilan ChangUrea nitrogen/Creatinine [Mass ratio]12.8 mg/mgNoSelect Medical [facility] Rehabilitation Hospital, AvonComment on above:Performed By: #### INFLUAB #### [facility] [address] [place] [address] Dr. Ashlie Recinos MICROSCOPIC ONLYon 97-64-1119RYXUECPFHRFWGAsoawpszUGKF SEEN [facility] ClinicComkalkaska memorial [facility] on above:Performed By: #### OBED UMICRO #### [facility] [address] [address] [address] Ashlie Cortez identified Cx Nom (U)INDICATEDSumma HealthComkalkaska memorial health center on above:Performed By: #### OBED UMICRO #### [facility] [address] [place] [address] Dr. Ashlie Thibodeaux SEENNormalNONE SEENCleveland ClinicComkalkaska memorial health center on above:Performed By: #### OBED UMICRO #### [facility] [address] [place] [address] Dr. Ashlie Banegas LM Nom (Urine sed)NONE SEENNormalNONE SEENCleveland ClinicComkalkaska memorial health center on above:Performed By: #### OBED UMICRO #### [facility] [address] [place] [address] Dr. Dailey ChangEaustinthelial cells LM Ql (Urine sed)MODERATEAbnormalNONE SEEN /RARE The [facility] HospitalComkalkaska memorial health center on above:Performed By: #### OBED UMICRO #### [facility] [address] [place] [address] Dr. Ashlie HaroE SEENNormalNONE SEENCleveland ClinicComkalkaska memorial health center on above:Performed By: #### OBED UMICRO #### [facility] [address] [place] [address] Dr. Ashlie PruettTmcneWDX5-3Iiihua5-8Vpr [facility] HospitalComkalkaska memorial [facility] center on above:Performed By: #### OBED UMICRO #### [facility] [address] [place] [address] Dr. Ashlie BhaktaBC0-2AbnormalNONE SEENGeorgetown Behavioral Hospital on above: Performed By: #### ERUR, UMICRO #### [facility] [address] [address] [address] Ashlie VelásquezASTPRESENTAbnormalNONE SEENGeorgetown Behavioral Hospital on above:Performed By: #### ERUR, UMICRO #### [facility] [address] [address] [address] Ashlie Hutchinson RIGHT 1 OR 2 VWS WITH PELVISon [id number] RIGHT 1 OR 2 VWS WITH PELVISUnSt. Vincent Hospital Department of Radiology [address] [place] [id number] Patient Name: MITZI MACIAS : 1970 Sex: F Age: Race: White Pt. Location: Patient Status: O Ordered Date: 07/20/2020 1:45:00 PM Completed Date: 07/20/2020 01:57 PM Requesting Provider: LIZ EISENBERG Attending Provider: LIZ EISENBERG Report Copy To: MCKAYLA BLAS Signs & Symptoms: M25.551 Pain in right hip I10 History: [place] Comments: evaluate Exam: HIP RIGHT 1 OR [...] MRI. Electronically signed: Pipo Acevedo. Transcribed by: [email or web address], User Resident: Electronically Signed by: PIPO ACEVEDO @ 07/20/2020 03:45 [facility] HospitalComment on above:Order Comment: evaluate Vital Signs Date TimeVital SignValuePerforming ZszobqvblGppkdmhn09-62-3275 17:58-0400Body .1 cmLisa Aichholz LENDING ACTIVITIES SUPERVISOR-C Work Phone: [phone]10-22-2025 17:58-0400 Body mass index (BMI) [Ratio]61 kg/m2Lisa Aichholz LENDING ACTIVITIES SUPERVISOR-C Work Phone: [phone]10-22-2025 17:58-0400 Body fpfpuiqracq70.1 [degF]Mckayla Aichholz LENDING ACTIVITIES SUPERVISOR-C Work Phone: [phone]10-22-2025 17:58-0400 Body xkbkya978.18 kgLisa Aichholz LENDING ACTIVITIES SUPERVISOR-C Work Phone: [phone]10-22-2025 17:58-0400 Diastolic blood jzkezpfx96 mm[Hg]Mckayla Aichholz LENDING ACTIVITIES SUPERVISOR-C Work Phone: [phone]10-22-2025 17:58-0400 Heart rate84 /minLisa Aichholz LENDING ACTIVITIES SUPERVISOR-C Work Phone: [phone]10-22-2025 17:58-0400 Respiratory rate20 /minLisa Aichholz LENDING ACTIVITIES SUPERVISOR-C Work Phone: [phone]10-22-2025 17:58-0400 SaO2% (BldA) [Mass fraction]90 %Mckayla Aichholz LENDING ACTIVITIES SUPERVISOR-C Work Phone: [phone]10-22-2025 17:58-0400 Systolic blood mghpwsjy843 mm[Hg]Mckayla Aichholz LENDING ACTIVITIES SUPERVISOR-C Work Phone: [facility]09-29-2025 15:37-0400 Body czkeecdqpgo86.1 [degF]Mckayla Harshadholz LENDING ACTIVITIES SUPERVISOR-C Work Phone: [phone]-[facility]09-29-2025 15:37-0400 Diastolic blood nmitlpsw69 mm[Hg]Mckaylataryn Patriciaholz LENDING ACTIVITIES SUPERVISOR-C Work Phone: [phone]09-29-2025 15:37-0400 Heart rate81 /minLisa Aichholz LENDING ACTIVITIES SUPERVISOR-C Work Phone: [phone]09-29-2025 15:37-0400 Respiratory rate20 /minLisa Aichholz LENDING ACTIVITIES SUPERVISOR-C Work Phone: [phone]09-29-2025 15:37-0400 SaO2% (BldA) [Mass fraction]92 %Mckayla Harshadholz LENDING ACTIVITIES SUPERVISOR-C Work Phone: [phone] [place], [place] 1907409-29-2025 15:37-0400 Systolic blood hdcsamun434 mm[Hg]Mckayla Patriciaholz LENDING ACTIVITIES SUPERVISOR-C Work Phone: [phone]-[facility]07-24-2025 09:48-0400 Body arouzl118.2 Reji Souza MD Work Phone: [facility] HospitalFezmnlxgxp49-83-6357 09:48-0400Body mass index (BMI) [Ratio]56.38 kg/q8QyleuRain Souza MD Work Phone: [facility] HospitalGxiiwyzudi83-61-6705 09:48-0400Body cayojs288.29 kgRain Souza MD Work Phone: [facility] HospitalLkgkvgdffg09-63-0866 09:48-0400Diastolic blood bhbelqgo66 mm[Hg]Rain Souza MD Work Phone: [facility] HospitalVffabxajjc70-74-0246 09:48-0400Heart rate72 /min Rain Souza MD Work Phone: noLakeland Regional HospitalSvskkryfla75-00-8324 09:48-0400Respiratory rate16 /minRain Souza MD Work Phone: noLakeland Regional HospitalFqorassiel21-31-7395 09:48-4733YsK7% (BldA) [Mass fraction]84 %Rain Souza MD Work Phone: [facility] HospitalOkinpwlwef57-57-8747 09:48-0400Systolic blood ejdaiejy883 mm[Hg]Rain Souza MD Work Phone: [facility] HospitalLocizqivvd06-28-4342 18:11-0400Body mass index (BMI) [Ratio]58.64 kg/m2Lisa Chetz LENDING ACTIVITIES SUPERVISOR Work Phone: [facility] HospitalQmwccikcam21-45-1519 18:11-0400Body temperature 98.49 [degF]Mckayla Wan LENDING ACTIVITIES SUPERVISOR Work Phone: [facility] HospitalDpjqzhushq26-06-1808 18:11-0400Body iwddoo763.83 kgLisa Chetz LENDING ACTIVITIES SUPERVISOR Work Phone: [facility] HospitalRbyvcwdczn63-61-0728 18:11-0400Diastolic blood qdkeczjp70 mm[Hg]Mckayla Wan LENDING ACTIVITIES SUPERVISOR Work Phone: [facility] HospitalJalomzqhdg86-56-0991 18:11-0400Heart rate81 /min Mckayla Wan LENDING ACTIVITIES SUPERVISOR Work Phone: [facility] HospitalAbnsmiehdx93-01-2906 18:11-0400Respiratory rate20 /minLisa Chetz LENDING ACTIVITIES SUPERVISOR Work Phone: [facility] HospitalGaydyyyabw16-80-5202 18:11-0150TpB2% (BldA) [Mass fraction]90 %Mckayla Wan LENDING ACTIVITIES SUPERVISOR Work Phone: [facility] HospitalMyqhrnzoyi18-84-6317 18:11-0400Systolic blood dplpefhc983 mm[Hg]Mckayla Wan LENDING ACTIVITIES SUPERVISOR Work Phone: [facility] HospitalJdnusgmwvg44-88-9922 10:19-0400Body temperature 98.01 [degF]Mckayla Rosenbergz LENDING ACTIVITIES SUPERVISOR Work Phone: [facility] HospitalHpkhqfwlhq51-36-9631 10:19-0400Diastolic blood lnaixlax33 mm[Hg]Mckayla Harshadholz LENDING ACTIVITIES SUPERVISOR Work Phone: [facility] HospitalAznklugmui37-03-8340 10:-0Heart rate71 /min Mckayla Harshadholz LENDING ACTIVITIES SUPERVISOR Work Phone: [facility] HospitalAqcoycoyau73-70-4724 10:-399Respiratory rate20 /minLisa Harshadholz LENDING ACTIVITIES SUPERVISOR Work Phone: [facility] HospitalZtrxhofzyn13-96-3419 10:5604OyM0% (BldA) [Mass fraction]88 %Mckayla Rosenbergz LENDING ACTIVITIES SUPERVISOR Work Phone: [facility] HospitalUmznntmolw29-81-3331 10:-399Systolic blood gflueddx937 mm[Hg]Mckayla Harshadholz LENDING ACTIVITIES SUPERVISOR Work Phone: [facility] HospitalUgaezxfddf76-37-6414 14:11-0400Body eqlcoy611.2 cmLisa Harshadholz LENDING ACTIVITIES SUPERVISOR Work Phone: [facility] HospitalKuzyvdnchg28-16-1775 14:11-0400Body mass index (BMI) [Ratio]56.51 kg/m2Maria De Jesussa Harshadholz LENDING ACTIVITIES SUPERVISOR Work Phone: [facility] HospitalAtqgmoxgox79-36-7539 14:11-0400Body temperature 98.71 [degF]Mckayla Harshadholz LENDING ACTIVITIES SUPERVISOR Work Phone: [facility] HospitalLiqkcxdusk70-38-1772 14:11-0400Body heouai884.66 kgLisa Juanjosehholz LENDING ACTIVITIES SUPERVISOR Work Phone: [facility] HospitalPhbjdnknas47-41-0602 14:11-0400Diastolic blood imuwrtej19 mm[Hg]Mckayla Harshadholz LENDING ACTIVITIES SUPERVISOR Work Phone: [facility] HospitalTckleqlbzq61-57-1136 14:11-0400Heart rate75 /min Mckayla Harshadholz LENDING ACTIVITIES SUPERVISOR Work Phone: [place] [address]Txgvtvbsbe50-90-6163 14:11-0400Respiratory rate18 /minMaria De Jesus Wan LENDING ACTIVITIES SUPERVISOR Work Phone: [facility] HospitalZgfjdgbkve04-65-5469 14:11-3874QaS8% (BldA) [Mass fraction]90 %Mckayla Wan LENDING ACTIVITIES SUPERVISOR Work Phone: noL[facility] HospitalLmqwcbjrpw80-15-9110 14:11-0400Systolic blood mm[Hg]Mckayla Sowdona LENDING ACTIVITIES SUPERVISOR Work Phone: [facility] HospitalFnohlaeyld12-43-1432 11:21-0400Body svfter891.2 Reji Souza MD Work Phone: [facility] HospitalTboeapkjjo42-11-3115 11:21-0400Body mass index (BMI) [Ratio]55.91 kg/h7CwqodRain Souza MD Work Phone: [address] [place], [place] [address]Ilekypxxzh57-45-6020 11:21-0400Body kkphin695.93 kgRain Souza MD Work Phone: [facility] HospitalJhvzziaqrq46-20-9708 11:21-0400Diastolic blood heyjbqua51 mm[Hg]Rain Souza MD Work Phone: [address] [place], [place] [address]Wkqphgylzz25-16-1848 11:21-0400Heart rate70 /min Rain Souza MD Work Phone: [facility] HospitalWzjmhysxjk09-59-2239 11:21-0400Respiratory rate16 /minRain Souza MD Work Phone: [address] [place], [place] [address]Lycjkkzznx17-00-7024 11:21-8391JdP8% (BldA) [Mass fraction]91 %Rain Souza MD Work Phone: [address] [place], [place] [address]Dphnxuuarw47-21-8918 11:21-0400Systolic blood mm[Hg]Rain Souza MD Work Phone: [address] [place], [place] [address]Vnvhhumxqm90-14-8784 17:44-0500Body mass index (BMI) [Ratio]57.31 kg/m2Mckayla Blas LENDING ACTIVITIES SUPERVISOR Work Phone: [facility] HospitalLrkovvmlmz61-85-9623 17:44-0500Body temperature 98.01 [degF]Mckayla Sowdona LENDING ACTIVITIES SUPERVISOR Work Phone: [facility] HospitalLeeuobfoeq49-54-8818 17:44-0500Body muenkl988.97 kgMckayla Juanjosecayetanodallin LENDING ACTIVITIES SUPERVISOR Work Phone: [facility] HospitalXiytdgxfty16-61-1844 17:44-0500Diastolic blood jeygbcyl64 mm[Hg]Mckayla Wan LENDING ACTIVITIES SUPERVISOR Work Phone: [facility] HospitalGaljmlhyyu44-15-4326 17:44-0500Heart rate83 /min Mckayla Wan LENDING ACTIVITIES SUPERVISOR Work Phone: [facility] HospitalOgthkfwujq65-16-5066 17:44-0500Respiratory rate18 /minMckayla Blas LENDING ACTIVITIES SUPERVISOR Work Phone: [facility] HospitalRqsgsxabjp55-53-8203 17:44-3840EbB1% (BldA) [Mass fraction]91 %Mckayla Patriciadallin LENDING ACTIVITIES SUPERVISOR Work Phone: [facility] HospitalHypxsqnlsh92-07-2547 17:44-0500Systolic blood ktkqclyj919 mm[Hg]Mckayla Patriciadallin LENDING ACTIVITIES SUPERVISOR Work Phone: [facility] HospitalPscxznskmy22-36-7889 10:00-0500Blood Pressure LocationPaalexezra ARAUZ [facility] [place] 196252-04-2024 10:00-0500Diastolic blood rcqnrgad71 mm[Hg]Elbert ARAUZ [facility] [place] 196252-04-2024 10:00-0500Heart rate76 /minElbert ARAUZ [facility] [place] 196252-04-2024 10:00-0500Systolic blood sqjllimj631 mm[Hg]Elbert ARAUZ [facility] [place] 302801-19-2024 10:20-0500Body btvtvi558.2 Reji Souza MD Work Phone: [address] [place], [place] [address]Jccywcplne44-64-1411 10:20-0500Body mass index (BMI) [Ratio]56.7 kg/b6GzjtfRain Souza MD Work Phone: [address] [place], [place] [address]Hcymetogqt78-88-5753 10:20-0500Body qagrem079.2 kgRain Souza MD Work Phone: [address] [place], [place] [address]Zvltucobtl46-71-6906 10:20-0500Diastolic blood ziluytso54 mm[Hg]Rain Souza MD Work Phone: [address] [place], [place] [address]Qingthpkzo49-32-9182 10:20-0500Heart rate72 /min Rain Souza MD Work Phone: [address] [place], [place] [address]Ntqnfjthzz96-76-9475 10:20-0500Respiratory rate16 /minRain Souza MD Work Phone: [place] [address]Mevfijllcm69-11-9722 10:20-0500Systolic blood ouoqmvwi550 mm[Hg]Rain Souza MD Work Phone: [address] [place], [place] [address]Otkpekunve16-48-7960 10:27-0400Body hqecnt437.1 Jamal Blas LENDING ACTIVITIES SUPERVISOR Work Phone: [facility] HospitalBhpawptetq27-08-5438 10:27-0400Body mass index (BMI) [Ratio]61.01 kg/m2Mckayla Blas LENDING ACTIVITIES SUPERVISOR Work Phone: [facility] HospitalVzqssvhzai31-01-9375 10:27-0400Body temperature 98.49 [degF]Mckayla Blas LENDING ACTIVITIES SUPERVISOR Work Phone: [facility] HospitalRzxhmzjddu10-60-7670 10:27-0400Body erflud743.29 kgMckayla Blas LENDING ACTIVITIES SUPERVISOR Work Phone: [place] [address]Hftdijpbmo79-21-4783 10:27-0400Diastolic blood vnggjnod63 mm[Hg]Mckayla Blas LENDING ACTIVITIES SUPERVISOR Work Phone: noLakeland [facility] HospitalSfzjgpgjyc55-73-6334 10:27-0400Heart rate77 /min Mckayla Blas LENDING ACTIVITIES SUPERVISOR Work Phone: [facility] HospitalHekiyxuwvk68-26-3985 10:27-0400Respiratory rate19 /minMckayla Blas LENDING ACTIVITIES SUPERVISOR Work Phone: [facility] HospitalGeaqrkmwll96-26-9389 10:27-3560WpE0% (BldA) [Mass fraction]92 %Mckayla Blas LENDING ACTIVITIES SUPERVISOR Work Phone: [facility] HospitalAolhpakrtj10-74-2558 10:27-0400Systolic blood qstlavzn949 mm[Hg]Mckayla Blas LENDING ACTIVITIES SUPERVISOR Work Phone: [facility] HospitalZomeqphmrk48-75-6575 15:00-0400Body fsekmk057.18 cmAbdul Tico Other [employer] Other 0-255776-04268153-79-6605 15:00-0400Body pdacwhfksok64.6 [degF]Stephanie Tico Other [employer] Other 122537-80-4744 15:00-0400Diastolic blood mm[Hg] Stephanie Tico Other [employer] Other 08-31-2022 15:00-0400Respiratory rate20 /minAbdul Tico Other [employer] Other 6-789829-27031743-76-0463 15:00-2887RbQ1% (BldA) [Mass fraction]91 % Stephanie Tico Other [employer] Other 231812-78-8879 15:00-0400Systolic blood tdikcbrl554 mm[Hg] Stephanie Tico Other [employer] Other 08-15-2022 09:20-0400Body majvht913.18 cmAbdul Tico Other [employer] Other 08-15-2022 09:20-0400Body joaazpiunnc30.5 [degF]Stephanie Tico Other [employer] Other 08-15-2022 09:20-0400Diastolic blood ionhwnum89 mm[Hg] Stephanie [facility] [employer] Other 08-15-2022 09:20-0400Respiratory rate20 /minAbdul Tico Other [employer] Other 08-15-2022 09:20-9516HoZ2% (BldA) [Mass fraction]91 % Stephanie Tico Other [employer] Other 08-15-2022 09:20-0400Systolic blood asppemmx477 mm[Hg] Stephanie Tico Other [employer] Other 08-01-2022 10:24-0400Blood Pressure LocationParockcastle regional hospitalezra ARAUZ [facility] 08-01-2022 10:24-0400Diastolic blood ctihtmcz05 mm[Hg] Elbert ARAUZ [facility] 08-01-2022 10:24-0400Heart rate70 /minParockcastle regional hospitalezra ARAUZ [facility] 08-01-2022 10:24-0400Respiratory rate16 /minPatrick REGLA [facility] 08-01-2022 10:24-0400Systolic blood spjrouba879 mm[Hg] Elbert ARAUZ [facility] Encounters Encounter DateEncounter TypeCare ProviderFacilityStart: 84-09-7047bytrtgyerbFsco Jo Aichholz AIRCRAFT FUELER-CNPFacility:[facility]: 05-22-2025 ambulatoryLance Huey Urias DPMFacility:[facility]tart: 05-18-2025 End: 18-23-7399qiawftphobMbnj Jo Aichholz AIRCRAFT FUELER-CNPFacility:[facility]Start: 04-29-2025 End: 05-53-3570dweiolvvmiIodi J Aichholz LENDING ACTIVITIES SUPERVISOR-C Work Phone: -[facility] ClydeStart: 04-29-2025 End: 48-06-1496Pabnijt encounter procedureLisa Krystal Blas LENDING ACTIVITIES SUPERVISOR-C-[facility] Work Phone: Start: 04-23-2025 End: 03-85-5445ksfavvtapmZgggkd Nas Rojas AIRCRAFT FUELER-CNPFacility:[facility]layStart: 04-17-2025 End: 34-74-5874xlztpetmskXjae Jo Aichholz AIRCRAFT FUELER-CNPFacility:[facility]tart: 04-06-2025 End: 96-68-5107hifqdaugrtZkmy J Aichholz LENDING ACTIVITIES SUPERVISOR-C Work Phone: [facility] Work Phone: Start: 04-06-2025 End: 94-58-1167Lgifysk encounter procedureLisa Krystal Blas LENDING ACTIVITIES SUPERVISOR-C-[facility] Work Phone: Start: 09-21-8354Nsqweqq encounter procedureMckayla Blas LENDING ACTIVITIES SUPERVISOR-C Work Phone: [facility]art: 55-75-8930Oyc- patient / Non-visitLanashley Urias DPM-[facility] Work Phone: Start: 05-06-9475Zuj-patient / Non-visitPrice Ramsey DO-[facility] Work Phone: Start: 02-82-7244pxmvlldaycGqotie Nas Bob AIRCRAFT FUELER-ELECTRODE CLEANING MACHINE OPERATOR [facility]Start: 03-23-2025 End: 97-87-3786yedwfvgkygNijqmz Nas Bob AIRCRAFT FUELER-CNPFacility:[facility] FindlayStart: 03-11-2025 End: 17-99-3538rhzerkttipWculf Huey Urias DPMFacility: [facility]trStart: 03-09-2025 End: 94-13-9670FvcpzdBmqy Aichholz NP Work Phone: noms [facility] FMComment on above:Tobacco user; Encounter for smoking cessation counselingStart: 01-29-2025 End: 15-21-1925Maiitm Jack Souza MD Work Phone: noms ENDOCRINOLOGYStart: 01-29-2025 End: 53-46-8468Iazmszashley Souza MD Work Phone: noms ENDOCRINOLOGYStart: 01-29-2025 End: 71-95-6148Wuxivsopo Result EncounterGeneric External Data ProviderNOMS External Department UnsolicitedStart: 01-29-2025 End: 02-70-3896ljujcyqwgkHBSHJRichard Negron AvailableStart: 01-29-2025 End: 14-34-4755Vyipom outpatient visit 25 minutesRain Souza MD Work [...] index (BMI) of50.0 to 59.9 in adult ([facility])Start: 01-26-2025 End: 24-79-8338kvbtkjfmxiUUSL AICHHOLZNot AvailableStart: 01-26-2025 End: 87-25-1392Xgdcymi encounter Marcela Blas NP Work Phone: noms [...] [facility]); Moderate persistent asthma without complication ([facility]); Insomnia; Non-seasonal allergic rhinitis, unspecified trigger; Type 2 diabetes mellitus with unspecified complications ([facility]); Anxiety and depression ; Antibiotic-induced yeast infection; Chronic obstructive pulmonary disease, unspecified (HCC); Hyperlipidemia, unspecified ; Vaginal yeast infection; Morbid (severe) obesity due to excess calories ([facility])Start: 01-06-2025 End: 25-56-3550fxcuoauyguAGKCDRI Peoples Hospitaltart: 12-18-2024 End: 99-23-5983SizxloBnlp Aichholz LENDING ACTIVITIES SUPERVISOR Work Phone: [facility] CWM FMComment on above:Hyperlipidemia, unspecified ; Tobacco user; Encounter for smoking cessation counselingStart: 12-09-2024 End: 63-16-7422Tpsktb Shirlene Blas LENDING ACTIVITIES SUPERVISOR Work Phone: noms CWM FMStart: 12-09-2024 End: 10-19-0751Ieipfz Shirlene Blas NP Work Phone: [facility] C[facility] FMStart: 12-09-2024 End: 49-21-1080jqlhcpsgmwVEYY AICCayetanoHOLZNot AvailableStart: 12-09-2024 End: 68-82-6960Ggnbcf outpatient visit 25 minutesMckayla Blas LENDING ACTIVITIES SUPERVISOR Work Phone: noms CW FMComment on above:Cellulitis of left lower extremity (Primary Dx); COPD exacerbation (CMS/HCC); Primary hypertension (CMS/HCC); Pulmonary hypertension (CMS/HCC); Morbid (severe) obesity due to excess calories ([facility]/HCC); Type 2 diabetes mellitus with complication, with long-term current use of insulin ([facility]); Anxiety and depression ([facility]); Fever, unspecified fever causeStart: 12-04-2024 End: 33-93-5691Kfvkjneos Result EncounterGeneric External Data ProviderNOMS External Department UnsolicitedStart: 12-04-2024 End: 13-09-1398Hsqjycgyx Result EncounterGeneric External Data ProviderNONE External Department UnsolicitedStart: 10-27-2024 End: 15-25-0127yslthmrcveASGN AICHHOLZNot AvailableStart: 10-27-2024 End: 00-32-2851Pngdsh outpatient visit 25 minutesMckayla Blas LENDING ACTIVITIES SUPERVISOR Work Phone: noms [facility] FMComment on above:Primary hypertension (CMS/HCC) (Primary [...] ([facility])Start: 10-21-2024 End: 64-08-1682QyceguXbdj Aichdallin LENDING ACTIVITIES SUPERVISOR Work Phone: noms CWM FMComment on above:Chronic obstructive pulmonary disease, unspecifiedStart: 10-08-2024 End: 56-03-3229Zxsbjjzdv Result EncounterLisa Blas LENDING ACTIVITIES SUPERVISOR Work Phone: noms External Department UnsolicitedStart: 10-08-2024 End: 48-31-2975Csbavaekt Result EncounterLisa Blas LENDING ACTIVITIES SUPERVISOR Work Phone: noms External Department UnsolicitedStart: 10-08-2024 End: 81-81-1776Tbmyfi outpatient visit 25 Adolfo Souza MD Work [...] of50.0 to 59.9 in adultStart: 10-08-2024 End: 41-17-2100xhhxrmayamQMOTR F SABBAGHNot AvailableStart: 08-27-2024 End: 21-33-5169Mhkmxb outpatient visit 25 minutesMckayla Wan SCHAEFER Work [...] ([facility]); Tobacco user; Mixed hyperlipidemia ([facility]); Gout, unspecified cause, unspecified chronicity, unspecified site; Vitamin deficiency; Gastro-esophageal reflux disease without esophagitis; Edema, unspecified; Edema; Hyperlipidemia, unspecified ([facility]); Encounter for smoking cessation counseling; Venous ulcer of right leg ([facility]); Antibiotic-induced yeast infectionStart: 08-27-2024 End: 61-00-5323kslflxzpxaTOGITaj Kendall AvailableStart: 08-27-2024 End: 82-82-4509Sjpltqvqe Result EncounterGeneric External Data ProviderNOMS External Department UnsolicitedStart: 08-27-2024 End: 04-33-5635Nyzdxmprh Result EncounterGeneric External Data ProviderNOMS External Department UnsolicitedStart: 08-08-2024 End: 65-03-4576zuhgiebpgzZBKYLBarney Children's Medical Centertart: 07-17-2024 End: 69-21-5601KbbkorLwbc Aichholz NP Work Phone: noms CWM FMStart: 07-14-2024 End: 10-72-6530Iksgil outpatient visit 25 Heena Blas NP Work Phone: noms CWM FMComment on above:Primary hypertension ([facility]) (Primary Dx); Diabetic polyneuropathy associated with type 2 diabetes mellitus ([facility]); Pulmonary emphysema, unspecified emphysema type ([facility]); Critical limb ischemia of right lower extremity ([facility]); PAD (peripheral artery disease) ([facility]); Gastroesophageal reflux disease, unspecified whether esophagitis present; Bilateral lower extremity edema; Venous ulcer of right leg ([facility]); Type 2 diabetes mellitus with complication, with long-term current use of insulin ([facility]); Tobacco user; Encounter for smoking cessation counseling; Kidney stone; Adrenal mass 1 cm to 4 cm in diameter ([facility]); Radiculopathy, lumbar region; Non-seasonal allergic rhinitis, unspecified trigger; Type 2 diabetes mellitus with unspecified complications ([facility])Start: 07-14-2024 End: 14-42-5173jwkyqbtjkqYKZZ AICHHOLZNot AvailableStart: 07-05-2024 End: 67-46-0506WokrapErrm Aichholz SILVANO Work Phone: noms [facility] FMComment on above:Bilateral lower extremity edemaStart: 06-11-2024 End: 07-61-5769yixoixpskmStbyjsi R REGLAFacility:EU [place]uskyStart: 06-11-2024 End: 53-92-9346Tzrikwi encounter procedurePanaomy ARAUZ [facility] Gh[facility] Start: 05-27-2024 End: 33-91-5170Dycumm Jack Souza MD Work Phone: noms ENDOCRINOLOGYStart: 05-27-2024 End: 19-16-9455Nineizyousif Souza MD Work Phone: noms ENDOCRINOLOGYStart: 05-27-2024 End: 55-67-4617eanvxtbychIVVEQ F SABBAGHNot AvailableStart: 05-27-2024 End: 49-84-2319Otktbh outpatient visit 25 minutesRain Souza MD Work Phone: noms ENDOCRINOLOGYComment on above:Type 2 diabetes mellitus with hyperglycemia, with long-term current use of insulin (CMS/[facility]) (Primary Dx); Encounter for dietary consultation; Vitamin D deficiency; Primary hypertension (CMS/HCC); Insulin long-term use (CMS/HCC); Hyperlipemia, mixed (CMS/HCC); Microalbuminuria; Class 3 severe obesity due to excess calories with serious comorbidity and body mass index (BMI) of50.0 to 59.9 in adult (CMS/HCC)Start: 05-12-2024 End: 39-37-2891Emomwjwja Result EncounterGeneric External Data ProviderNOMS External Department UnsolicitedStart: 05-12-2024 End: 66-23-2303Eqghuzoxv Result EncounterGeneric External Data ProviderNOMS External Department UnsolicitedStart: 26-46-0761bansulhnhiLYHBFMVM E SILVIA Facility:EU [place]Start: 04-24-2024 End: 24-52-8789Tecqizthq Result EncounterGeneric External Data ProviderNOMS External Department UnsolicitedStart: 04-24-2024 End: 31-09-1337Exdpmfwoc Result EncounterGeneric External Data ProviderNOMS External Department UnsolicitedStart: 04-14-2024 End: 54-89-7613Bmijog flowsheetMckayla Blas LENDING ACTIVITIES SUPERVISOR Work Phone: noms CWM FMStart: 04-14-2024 End: 59-42-3225Ektvln flowsheetMckayla Blas LENDING ACTIVITIES SUPERVISOR Work Phone: noms CWM FMStart: 04-14-2024 End: 83-94-7586Qhmmdc outpatient visit 25 minutesLisa Blas LENDING ACTIVITIES SUPERVISOR Work Phone: noms CWM FMComment on above:Primary [...] Tobacco user; Hyperpigmentation of skinStart: 04-14-2024 End: 69-17-7035pbrihnkrazAAUB AICHRAVIZNot AvailableStart: 04-05-2024 End: 93-92-1812FrqaelIqnf Aichholz LENDING ACTIVITIES SUPERVISOR Work Phone: noms CWM FMComment on above:Hyperlipidemia, unspecified (CMS/HCC); Bilateral lower extremity edemaVitamin D deficiency, unspecifiedStart: 23-37-1660Dmcmgwz encounter Mary Ann Souza MD Work Phone: [facility] HealthcareStart: 12-14-2023 End: 76-31-9047Brjzxueie Result EncounterLisa Harshadholz LENDING ACTIVITIES SUPERVISOR Work Phone: noms External Department UnsolicitedStart: 12-14-2023 End: 81-94-9659Obpquopgy Result EncounterLisa Harshadholz LENDING ACTIVITIES SUPERVISOR Work Phone: noms External Department UnsolicitedStart: 08-31-2023 End: 91-54-0792Dujpsmcky Result EncounterAmy Cari MAYERS Work Phone: noms External Department UnsolicitedStart: 08-31-2023 End: 22-20-1976Ftyesudnm Result EncounterAmy Cari MAYERS Work Phone: noms External Department UnsolicitedStart: 08-17-2023 RefillLisa Patriciaholz LENDING ACTIVITIES SUPERVISOR Work Phone: noms CWM FMComment on above:Vaginal yeast infection (Primary Dx)Start: 86-25-2233NfsxdrCetp Aichholz LENDING ACTIVITIES SUPERVISOR Work Phone: NOIE CWM FMComment on above:Type 2 diabetes mellitus with unspecified complications (CMS/HCC); Edema, unspecified; EdemaStart: 13-43-9733hbnvfcjepaOQQVXPYWLIMF LAKSHMIPATHY .Facility:V9Zciql: 12-05-2022 End: 43-01-4349Vbdksrxevj and management of inpatientJESSICA ALONDRA .Facility:H1 Start: 11-23-2022 End: 56-78-3568zrjbthzyhqQYP MCKAYLA AICHHOLZFacility:N4Orxkl: 11-22-2022 End: 84-09-3663ywnnmwfgymJMQ MCKAYLA AICHHOLZFacility:X1Immke: 11-17-2022 End: 56-88-7488vkmacyarmsONEGEBD HALKER .Facility:K2Uwiqy: 11-15-2022 End: 34-76-2530Ayuscnl encounter procedureJENNIFER E SILVIA [facility] start: 10-05-2022 End: 52-21-4957orhlbpfijhLYDCCD DIAB .Facility:A0Yxmqg: 09-21-2022 End: 52-63-6480qkbmbwnjfgSZP MCKAYLATaryn BLASFacility:T3Zngnn: 98-55-1045umzfbcwshu COMFORT CULLENFacility:Y4Xvulj: 08-24-2022 End: 99-04-5192kudtujomxtIX CHAPARRO S MORTENSEN .Facility:J9Xrtaa: 08-21-2022 End: 06-25-7079rwsynwspdtIREJW D [facility] CLAIREFacility:G6Bpzdn: 07-27-2022 End: 66-98-9904qliknwscuiNIUN TAMLYN .Facility:M5Gxdie: 07-18-2022 End: 96-99-4175sridbwgopdJQCW TAMLYN .Facility:Z0Imcnx: 07-18-2022 End: 38-27-0135xburdodfrwKGQMA D [facility] CLAIREFacility:L3Urftm: 07-06-2022 End: 97-07-5578txmisagguqVVN MCKAYLA WANFacility:H8Gbrlz: 05-11-2022 End: 90-01-9289pejvqsoqjjNQPJ VALENZUELA .Facility:R0Hesde: 04-25-2022 End: 07-12-6903phswbxyxeoUO CHAPARRO S MORTENSEN .Facility:V2Pwufv: 04-20-2022 End: 60-91-6112touciikbhcLSEM VALENZUELA .Facility:W5Ayesk: 03-08-2022 End: 01-74-6002lhzotbjrluJmudh Tico Other [employer] Other Start: 62-92-4390Gcwlca outpatient visit 15 minutes Stephanie QadirFPG NephrologyStart: 03-03-2022 End: 72-05-8712uoqxarworwNGF MCKAYLA Judicility:E6Jxgut: 02-20-2022 End: 56-33-9728raivzmfcmaQzfgd Tico Other [employer] Other Start: 79-78-3146Mfemwu outpatient new 45 minutesAbdul QadirFPG NephrologyStart: 02-06-2022 End: 44-51-0126Urhzfil encounter procedureElbert Mahnaz ARAUZ [facility] Wilfredo start: 01-19-2022 End: 53-95-1128zhktvqwrhlDFJE SOLIS .Facility:K5Rbdlq: 12-24-2021 End: 49-84-1358otjugjheimJZEIX PARKERFacility:O4Npqee: 08-26-2020 End: 37-15-9725Xddativ encounter procedureVITHAL GABINODGEFacility:UTMCStart: 10-30-2019 End: 75-68-7196Znweascaz department patient visitDOCooley Dickinson Hospitaltart: 10-30-2019 End: 54-18-3153Egauovhti department patient visitMercy [facility] Emergency DepartmentStart: 90-37-7899Wjlpvkxmytlm stateAbdul Tico Other [employer] Other Procedures DateProcedureProcedure DetailPerforming ClinicianStart: 96-65-8270UU ECHO DOPPLER COMPLETEGeneric External Data ProviderStart: 48-23-0498Sgas bld gluc mntr dev cleared fda spec home useAhart Souza MD Work Phone: Start: 23-21-2893KNGOO CULTURE 2Generic External Data ProviderStart: 59-44-7500GYVKB CULTURE 1Generic External Data ProviderStart: 73-19-2917Myya bld gluc mntr dev cleared fda spec home useRain Souza MD Work Phone: Start: 18-57-9635DWQ UA (CLEAN/CATCH) MICROSCOPIC IF INDICATELisa Aichholz L[employer]ING [employer]IVITIES SUPERVISOR Work Phone: Start: 03-94-9667SIK CBC WITH AUTO DIFFGeneric External Data ProviderStart: 44-00-8779Tauk bld gluc mntr dev cleared fda spec home useRain Souza MD Work Phone: Start: 30-34-9645QD LUMBAR SPINE WO CONGeneric External Data ProviderStart: 45-47-8135PO ABDOMEN PELVIS W CONGeneric External Data ProviderStart: 75-67-1341BXD CREATININEGeneric External Data ProviderStart: 41-23-0254MYGTKIZKY BLOOD PRESSUREGeneric External Data ProviderStart: 17-52-0249JL TOMOSYNTHESIS SCREENING Chyna Blas NP Work Phone: Start: 94-18-0691DthvzbcorxeXvqsm Sabbagh MD Work Phone: Start: 36-66-8008QTNFT CULTURE 2Generic External Data ProviderStart: 00-28-7160IWLPO CULTURE 1Generic External Data ProviderStart: 40-04-7296OTN 12-LEADAmy Cari MAYERS Work Phone: Start: 02-09-5398YvwrmxecnycUszm Aichholz NP Work Phone: Start: 04-72-4670Kdciztomskd observation [Identifier] in Cervix by Cyto stainMckayla Blas NP Work Phone: H/O: hysterectomyPatrick [employer] Laparoscopic cholecystectomyPatrick [employer] Operative procedure on footPatrick [employer] Plan of Treatment DateCare ActivityDetailAuthorStart: 02-01-2026 End: 94-57-5498Wnlenly encounter procedureNOMS CWM FMStart: 07-21-2026Medicare Annual Wellness (AWV)Medicare Annual Wellness (AWV)NOMS HealthcareStart: 08-72-4847Qltil screening for proteinDiabetes: Urine Protein ScreeningNOMS HealthcareStart: 02-69-9570Bohblibho for malignant neoplasm of colonNOMS HealthcareStart: 02-44-9447Qrndcghf screeningDiabetes: Retinopathy ScreeningNOMS HealthcareStart: 05-28-2025 End: 67-70-3827Kxuacuw encounter procedureNOMERCY [facility] ENDOCRINOLOGYStart: 05-13-2025 Glaucoma screeningDiabetes: Retinopathy ScreeningFreeman Neosho HospitalStart: 61-34-7151Brflmloktx A1c measurementDiabetes: Hemoglobin K1LXIPCFreeman Neosho Hospital Start: 04-29-2025 End: 52-59-8097Uleovqw encounter procedureNOHILLCREST [facility] FMStart: 59-10-7170Htayjyxep vaccinationPRIMARY CHILDREN'S HOSPITAL HealthcareStart: 01-28-2025 End: 32-97-0410Vqvglyh encounter dquczyxby76/23/2025 10:50 AM EDT Office Visit [facility] [address] [place] [address] Rain Souza MD [address] [place] [address] [facility] ENDOCRINOLOGYStart: 01-26-2025 End: 59-59-2501Oxiqgyn encounter /21/2025 6:00 PM EDT [facility] [address] [place] [address] Mckayla Blas, LENDING ACTIVITIES SUPERVISOR [address] [place] [address] [facility] FMStart: 07-11-2025Medicare Annual Wellness (AWV) Medicare Annual Wellness (AWV)[facility] HealthcareStart: 18-36-6017Tvezkiyzys A1c measurementDiabetes: Hemoglobin G2SBDIBFreeman Neosho HospitalStart: 12-15-2024 End: 47-06-6372EE Breast - bilateral ScreeningBilateral screening mammogram Imaging Routine Encounter for screening mammogram for malignant neoplasm of breast Expected: 12/15/2024 (Approximate), Expires: 12/27/2025[facility] Work Phone: Comment on above:Expected: 12/15/2024 (Approximate), Expires: 12/27/2025Start: 58-62-0035Pijofhrho for malignant neoplasm of breast MammogramFreeman Neosho HospitalStart: 21-66-9294Gseze screening for proteinDiabetes: Urine Protein ScreeningPRIMARY CHILDREN'S HOSPITAL HealthcareStart: 10-27-2024 End: 04-95-9863Odjrflh encounter /21/2025 2:00 PM EDT Office Visit [facility] FM [address] [place] [address] Mckayla Blas, LENDING ACTIVITIES SUPERVISOR [address] [place] [address] [facility] FMStart: 10-08-2024 End: 24-35-2888Xywoqjs encounter aclrwwygc36/02/2025 11:20 AM EDT Office Visit [facility] [address] [place] [address] Rain Souza MD [address] [place] [address] [facility]YStart: 08-27-2024 End: 54-70-3095Jjatpzc encounter lxfpxuumo35/19/2025 5:30 PM EST Office Visit [facility] FM [address] [place] [address] Mckayla Blas, SILVANO [address] [place] [address] [facility] FMStart: 08-27-2024 End: 015624-pjjvixhldkgogb D3 [Mass/volume] in Serum or PlasmaVitamin D 25 hydroxy Lab Routine Vitamin deficiency Expected: 08/27/2024 (Approximate), Expires: 08/27/2025NONE HealthcareComment on above:Expected: 08/27/2024 (Approximate), Expires: 08/27/2025Start: 81-11-1426Gudcukudpk A1c measurement Diabetes: Hemoglobin Z3XXBCELakeland Regional HospitalStart: 08-27-2024 End: 21-80-0127Fwyldkf function 2000 panel - Serum or PlasmaHepatic function panel Lab Routine Hyperlipidemia, unspecified ([facility]) Expected: 08/27/2024 (Approximate), Expires: 08/27/2025[facility] HealthcareComment on above:Expected: 08/27/2024 (Approximate), Expires: 08/27/2025Start: 08-27-2024 End: 49-36-1734Opywx 1996 panel - Serum or PlasmaLipid panel Lab Routine Mixed hyperlipidemia ([facility]/HCC) Expected: 08/27/2024 (Approximate), Expires:08/27/2025 [facility] Healthcare Work Phone: Comment on above:Expected: 08/27/2024 (Approximate), Expires: 08/27/2025Start: 08-27-2024 End: 33-46-4518Bgmuajfztavr/Creatinine panel in random UrineMicroalbumin / creatinine, urine ratio Lab Routine Primary hypertension ([facility]) Type 2 diabetes mellitus with complication, with long-term current use of insulin ([facility]) Expected: 08/27/2024 (Approximate), Expires: 08/27/2025[facility] Healthcare Comment on above:Expected: 08/27/2024 (Approximate), Expires: 08/27/2025Start: 08-27-2024 End: 78-07-9184Yitgn [Mass/volume] in Serum or PlasmaUric acid Lab Routine Gout, unspecified cause, unspecified chronicity, unspecified site Expected: (Approximate), Expires: 08/27/2025[facility] HealthcareComment on above: Expected: 08/27/2024 (Approximate), Expires: 08/27/2025Start: 08-27-2024 End: 38-35-3846Gbadkmntaj complete panel - UrineUrinalysis with reflex microscopic (clean catch) Lab Routine Primary hypertension ([facility]) Type 2 d iabetes mellitus with complication, with long-term current use of insulin ([facility]) Tobacco user Gout, unspecified cause, unspecified chronicity, unspecified site Expected: 08/27/2024 (Approximate), Expires: 08/27/2025[facility] HealthcareComment on above:Expected: 08/27/2024 (Approximate), Expires: 08/27/2025Start: 08-26-2024 End: 93-45-8663Bgsjlch encounter awwilmyyb98/18/2025 10:30 AM EST Office Visit [facility] [address] [place] [address] Rain Souza MD [address] [place] [address] [facility]OCRINOLOGYStart: 07-14-2024 End: 21-21-2752Rnlxank encounter rffcsynha45/06/2025 6:30 PM EST Office Visit [facility] [address] [place] [address] Mckayla Blas NP [address] [place] [address] [facility] FMStart: 07-14-2024 End: 10-36-0766Yntlmot encounter ptxnoculg32/06/2025 10:10 AM EST Office Visit [facility] [address] [place] [address] Rain Suoza MD [address] [place] [address] [facility] ENDOCRINOLOGYStart: 01-03-5253Jsumbtriw vaccinationInfluenza Vaccine (#1)NOMS HealthcareComment on above:Postponed from 03/09/2024 (Patient Refused)Start: 05-27-2024 End: 46-25-9539Ipsenfm encounter /19/2024 9:50 AM EST Office Visit [facility] [address] [place] [phone] Rain Souza MD [address] [place] [address] [facility] ENDOCRINOLOGYStart: 73-98-2708Kypdzxfzai A1c measurementDiabetes: Hemoglobin P3DLSHS HealthcareStart: 05-15-2024 End: 38-74-3760Vbrdk suklfopclbt35/07/2024 Abstract [facility] [address] [place] [address] Rain Souza MD [address] [place] [address] [facility] ENDOCRINOLOGYStart: 05-15-2024 End: 39-26-8257Lhdmssd encounter daplqapxv07/07/2024 11:20 AM EST Office Visit [facility] [address] [place] [address] Rain Souza MD [address] [place] [address] [facility] ENDOCRINOLOGYStart: 04-17-2024 End: 95-50-9163Qzykinv encounter cijuprjfw19/10/2024 3:40 PM EDT Office Visit [facility] [address] [place] [address] Mckayla Blas, LENDING ACTIVITIES SUPERVISOR [address] [place] [address] [facility] FMStart: 04-14-2024 End: 75-01-3796Ciwqjei encounter ugsmlimhy76/07/2024 11:00 AM EDT Office Visit [facility] [address] [place] [address] Mckayla Blas, LENDING ACTIVITIES SUPERVISOR [address] [place] [address] ArrivedNOMS CW FMComment on above:ArrivedStart: 03-09-2024 Influenza vaccinationInfluenza Vaccine (#1)N[facility] HealthcareStart: 02-19-2024 Hemoglobin A1c measurementDiabetes: Hemoglobin N6VJVMQ HealthcareStart: 79-37-1797Intnj screening for proteinDiabetes: Urine Protein ScreeningNONE HealthcareStart: 97-80-5937Aimmxtbmj for malignant neoplasm of breastMammogram [facility] HealthcareStart: 10-15-2023 End: 43-32-5867Dumvzoj encounter jkowsrxqy75/08/2024 4:30 PM EDT Office Visit [facility] [address] [place] [address] Mckayla Blas, LENDING ACTIVITIES SUPERVISOR [address] [place] [address] [facility] FMStart: 51-42-6938Gvnfgumghm A1c measurement Diabetes: Hemoglobin O7POYPQ HealthcareStart: 16-33-9647Kikjwnxs screening Diabetes: Retinopathy ScreeningNONE HealthcareStart: 81-42-9644Ehqpfuvgh vaccinationFlu vaccine (Season Ended)[facility]: 10-07-2018 Screening for malignant neoplasm of cervixNONE HealthcareStart: 06-87-0488Bzsmx panelLipid screenKettering Health: 18-95-2258Qmrznzbdf for malignant neoplasm of cervixHPV/CotestNONE HealthcareStart: 43-30-4458Ubqlgnpmo for malignant neoplasm of cervixCervical cancer [facility]: 96-48-1197FXlB/Tdap/Td vaccine (1 - Tdap)DTaP/Tdap/Td vaccine (1 - Tdap)[facility]: 44-01-6022LLK screeningHIV [facility]: 02-17-1971Medicare Annual Wellness (AWV)Medicare Annual Wellness (AWV)[facility] HealthcareStart: 62-47-4547Qvgddiicf for malignant neoplasm of colonNOMS HealthcareBLOOD CULTURE 1BLOOD CULTURE 1 Lab Routine 12/04/2024 4:44 PM EDTNOMS HealthcareBLOOD CULTURE 2BLOOD CULTURE 2 Lab Routine 12/04/2024 5:28 PM EDTNONE Healthcare Immunizations Immunization DateImmunizationNotesCare IwlysgxoQriunqkp65-47-6980ksahrztmw, injectable, quadrivalent, contains preservativeMckayla Blas LENDING ACTIVITIES SUPERVISOR Work Phone: NOLakeland Regional HospitalVpnuxllcmc62-34-0112vertdwbbt virus vaccine, unspecified formulationRain Souza MD Work Phone: [facility]01-11-2022SARS-CoV-2 (COVID-19) mRNA BNT-162b2 vaxJENNIFER SILVIA [facility]04-22-2021SARS-CoV-2 (COVID-19) mRNA BNT-162b2 vaxJENNIFER SILVIA [facility]04-02-2021SARS-CoV-2 (COVID-19) mRNA BNT-162b2 vaxJENNIFER SILVIA [facility]10-09-2017influenza virus vaccine, H5N1, A/ (national stockpile)Mckayla Blas LENDING ACTIVITIES SUPERVISOR Work Phone: [facility] HospitalOjjaprybbu85-85-6274pfizhdsqr virus vaccine, unspecified formulationRain Souza MD Work Phone: NOLakeland Regional HospitalLyzsatgubd67-16-2382hgcqwhpxf, unspecified formulationParockcastle regional hospitalk ARAUZ [facility] [address]-09-2017pneumococcal polysaccharide vaccine, 23 valMunira Souza MD Work Phone: N[facility] Klzamznqxo49-76-0191nmajtwsqh virus vaccine, H5N1, A/ (national stockpile)Mckayla Blas LENDING ACTIVITIES SUPERVISOR Work Phone: noLakeland Regional HospitalIbixcllczb37-42-6224stngkgdgc virus vaccine, unspecified formulationRain Souza MD Work Phone: noLakeland Regional HospitalAhdfydphiw21-14-5776gzpnbgmkg, unspecified formulationPatrick ARAUZ [facility]10-25-2013influenza virus vaccine, whole virusRain Souza MD Work Phone: NOLakeland Regional HospitalMdhtvzmnut49-17-1844prqdsjxkb, injectable, quadrivalent, contains preservativeLisa Aichholz LENDING ACTIVITIES SUPERVISOR Work Phone: [facility] HospitalEkqdxhawuq98-91-1791xqyzftbfc, wholePatrick ARAUZ [facility]07-24-1998measles, mumps and rubella virus vaccineRain Souza MD Work Phone: [facility] Healthcare Payers DatePayer CategoryPayerPolicy [id number] 2024Medicare (Managed Care)[id number] Health [id number] [id number] 2019[place]icaid[place] [id number] 2018-Present [phone] [address] [place] [address]Medicaid [id number] 2013Medicare [id number] 2.16.840.1.623907.3.57[id number] 2.16.840.1.837547.3.57[id number] 2.16.840.1.493172.3.57[id number] 2..840.1.304090.3.57[id number] 2..840.1.992529.3.57[id number] 2.840.1.426815.3.57[id number] 2.840.1.504987.3.57[id number] 2.840.1.247572.3.57[id number] 2.0.1.077700.3.579.2.81461-23-5311Rcargbh2473985 2.840.1.410534.3.579.2.17877-58-2844Jiyqwxi2527987 2.840.1.827653.3.579.2.37280-90-2469Elafyxf2816009 2.840.1.019262.3.579.2.51742-41-4316Tsoybrn1866264 2.840.1.248233.3.579.2.98583-72-9623Zchiwpl3680814 2.840.1.786225.3.57[id number] 2.840.1.844029.3.57[id number] 2.840.1.198480.3.579.[id number] 2.840.1.225255.3.579.2.58409-35-5245Nzbszpi5386709 2.16.840.1.567323.3.579.2.17247-20-6774Btbujdx8247595 2.0.1.005319.3.579.2.88483-44-1063Ejdmjmu6069301 2.840.1.583838.3.579.2.39574-89-6703Pitqylt7848124 2.840.1.478310.3.579.2.02243-20-0171Rorirav3671756 2.0.1.992204.3.579.2.49255-55-4440Ixwjzkv6173936 2..1.217788.3.579.2.49055-89-2056Fturzdc37448089 2..1.904404.3.579.2.418572-52-5553Fzrerdt96862624 2..1.665744.3.579.2.314137-30-3274Fsfktdg52810158 2..1.344194.3.579.2.166462-47-9946Kjyibbw0434345 2..1.864426.3.579.2.496717-02-7533Nsbinrx3912377 2..1.229388.3.579.2.945503-59-4421Iujfuyv9471320 2..1.533055.3.579.2.427139-36-2947Dtdtgjh9593240 2..1.769232.3.579.2.376578-85-3949Hpbyctr1049234 2.0.1.256993.3.579.2.175291-05-7121Qgxolmt8453861 2.0.1.022762.3.579.2.591961-00-8255Outqvah78670616 2.16.840.1.648813.3.579.2.00163-19-1271Akzixwk28786062 2.16.840.1.981899.3.579.2.07639-46-4459Vztkfax992737081 2.16.840.1.518048.3.579.2.88074-67-8142Fvytcyx072240216 2.16.840.1.079022.3.579.2.28431-21-4556Rkhnfiu967238105 2.16.840.1.341484.3.579.2.53919-21-4231Csatkkh108477774 2.16.840.1.925904.3.579.2.35846-49-5050Bpybemt653832040 2.840.1.454266.3.579.2.39321-50-5570Apxswsm913408607 2.16.840.1.053299.3.579.2.52216-39-5813Rsazpot413162180 2.16.840.1.102243.3.579.2.29405-11-6625Nyoifem640186262 2.16.840.1.492940.3.579.2.64845-63-0723Qlqlvmu577783936 2.840.1.065682.3.579.2.26072-80-4144Ysajqht190496169 2.16.840.1.985343.3.579.2.41226-45-9394Hpmvlke900566994 2.16840.1.653551.3.579.2.196 [id number] 1960Private Health [id number] 2.16.840.1.391247.19 [id number] [id number] 2wh2ksh2-7o4d-177k-9913-4fa66230opqaWxrjfxvFltgnng Auto/[id number] 199z2476-7o5i-7md9-3357-d31b5k0xvc09 Social History DateTypeDetailFacilityStart: 02-17-2014 End: 78-95-8725Satrbkm smoking status NHISCurrent every day smokerKettering Health: 56-49-8402Jbjybnv of tobacco useCigarette SmokerK[facility]tering Health: 02-17-2014 End: 49-20-2797Kkdjtbkrio smoked current (pack per day) - ReportedKettering Health: 12-26-8608Hgkzqdr intakeCurrent drinker of alcohol (finding)[facility]: 23-05-7316Ciwnhfl CommentRareMAdena Pike Medical Center: 34-26-2531Gez Assigned At BirthNot on fileIndependence, KYExposure to SARS-CoV-2 (event)Unable to assessWVUMedicine Barnesville Hospitalart: 87-43-1319Nsuizzj smoking statusSmoker (finding)[facility] start: 07-10-2023 End: 30-63-0254Yek Assigned At BirthFemaleExec[facility] start: 11-15-2022 End: 06-02-3614Fsodxcq smoking statusHeavy tobacco smoker (finding)[facility] Centertart: 07-10-2023 End: 74-65-4866Qzbkyje use and exposureSmokeless tobacco non-userNOMS Healthcare Start: 07-10-2023 End: 22-99-6699Muyozec intakeLifetime non-drinker (finding)[facility] HealthcareWithin the last year, [...] drinks on 1 occasion?Less than monthlyNOMS HealthcareStart: 90-08-6904Pay hard is it for you to pay [...] from your doctor or pharmacy [SILS]RarelyNOMS HealthcareSexFemale (finding)[facility] Start: 45-94-6695Mho Assigned At [facility] HospitalN [facility] HospitalNEGATED: Highlighted [facility] Medical Equipment Procedure CodeEquipment CodeEquipment Original TextEquipment IdentifierDates [id number]: 24-25-7945LSL TO TEST BLOOD SUGAR 4 TIMES [id number]: 07-07-2024 Functional Status HglfAjnclpjpysLapaaoNrvvuovf72-01-5367Yedknie Health Questionnaire 2 item (PHQ- 2) [Reported][facility] HospitalHwwijyohsk00-77-0501Yvhwwrv falling or staying asleep, or sleeping too muchNot at all 01/26/2025 4:13 PM EDT Mychart, Generic Not at all [facility] HospitalGmuafwwrev23-99-5235Psvdggc tired or having little energyNot at all 01/26/2025 4:13 PM EDT Mychart, Generic Not at [facility] SystemsLyywxqtlzi06-12-4656Gecc appetite or overeatingNot at all 01/26/2025 4:13 PM EDT Mychart, Generic Not at [facility] SystemsGbevepxhct36-65-0119Ledayhr bad about yourself-or that you are a failure or have let yourself or your family downNot at all 01/26/2025 4:13 PM EDT Mychart, Generic Not at [facility] SystemsIsgfktmqaj52-12-4115Pbakojk concentrating on things, such as reading the newspaper or watching televisionNot at all 01/26/2025 4:13 PM EDT Mychart, Generic Not at [facility] SystemsRdaoedpakw01-51-7230 Moving or speaking so slowly that other people could have noticed. Or the opposite - being so fidgety or restless that you have been moving around a lot more than usualNot at all 01/26/2025 4:13 PM EDT Mychart, Generic Not at [facility] SystemsZdyicscwgw54-25-0087Tekrgtwu that you would be better off , or of hurting yourself in some wayNot at all 01/26/2025 4:13 PM EDT Mychart, Generic Not at [facility] Health SystemsIanazpanou30-75-2091Diatu score [AUDIT-C]1 08/26/2024 6:13 PM EST Mychart, GenericFreeman Neosho HospitalStsdseiocq83-74-5586One often do you have a drink containing alcohol?Monthly or less 08/26/2024 6:13 PM EST Mychart, Generic Monthly or lessFreeman Neosho HospitalEwrbfohbxc29-36-5048Yaz many standard drinks containing alcohol do you have on a typical day?1 or 2 08/26/2024 6:13 PM EST Mychart, Generic 1 or 2NOMS Cgdoknmohg47-78-3521Kjj often do you have 6 or more drinks on 1 occasion?Never 08/26/2024 6:13 PM EST Mychart, Generic [facility] 22-58-1750Uorkggglbp StatusN/AExec[facility]07-11-2024How difficult have these problems made it for you to do your work, take care of things at home, or get along with other people?Not difficult at all 01/17/2024 10:08 AM Marilyn Dunbar MA Not difficult at allFreeman Neosho HospitalMkumlvhhii24-48-6727Nngtnwa Health Questionnaire 2 item (PHQ-2) [Reported][facility] HospitalEcmttcdkxu87-11-9451Ozzppqo Health Questionnaire 2 item (PHQ-2) [Reported][facility] HospitalOdgxctshjt40-60-5279Stqdzexlzk StatusN/AExec[facility]08-01-2022Functional StatusN/AExec[facility] Clinical Notes 01-19-2022 to 04-06-2025 Note Date & MadaYgixTmaxoqdd50-61-5158 Evaluation note* Diagnosis Onset Date Resolution Status [...] use ofacuteOctober 2024 5:50pmVenous insufficiencyacuteOctober 2024 5:50pm [facility] Work Phone: [phone] 313-143907-30-2025 NotePlease let her know her ECHO showed some improvement in the left side wall thickness, it was severely enlarged, now it is moderate. Important for good BP control to continue to improve this. Everything else looks good. Follow-up as planned in 6 months. Thanks![facility]07-24-2025 History of Present illness Narrative* Rain [...] 96, on lantus 58 units bid, lispro 0-46-10pqulz plus ISS, Trulicity 4.5 mg weekly. meter give us error during download IM 03/2022 follow up visit on 03/14/2022, A1c in the office 9.4, bg 142, on lantus 58 units bid, lispro 1-02-70pfzob plus ISS, Trulicity 4.5 mg weekly. lab [...] 25 mg, Oral, 2 times daily HYDROcodone-acetaminophen (Glasco) 5-325 MG tablet 1 tablet, 3 times [...] 07/10/2023 Body mass index (BMI) 50.0-59.9, adult ([facility] Cellulitis of left lower extremity Cervical cancer [...] Insomnia 09/17/2023 MCFP (current) use of insulin ([facility]) Lower extremity edema 09/17/2023 Mixed hyperlipidemia Morbid (severe) obesity due to excess calories ([facility] Obstructive sleep apnea 07/10/2023 PAD (peripheral artery disease) 09/17/2023 Pancreatitis ([facility]) 09/17/2023 Pneumonia 09/17/2023 Proteinuria, unspecified Pulmonary [...] use of insulin ([facility]) - POCT glycosylated hemoglobin (Hb A1C) [...] ([facility]) Diet and exercise reviewed with the patient Follow up in about 4 months (around 06/01/2025). 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 * Mckayla Blas NP [...] 25 mg, Oral, 2 times daily HYDROcodone-acetaminophen (Glasco) 5-325 MG tablet 1 tablet, 3 times [...] 07/10/2023 Body mass index (BMI) 50.0-59.9, [place] [place] Cellulitis of left lower extremity Cervical cancer [...] Insomnia 09/17/2023 [facility] (current) use of insulin ([facility]) Lower extremity edema 09/17/2023 Mixed hyperlipidemia Morbid (severe) obesity due to excess calories [place] [place] Obstructive sleep apnea 07/10/2023 PAD (peripheral artery disease) 09/17/2023 Pancreatitis ([facility]) 09/17/2023 Pneumonia 09/17/2023 Proteinuria, unspecified Pulmonary [...] is 7.4%!!! 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 Hypertension Please check blood [...] MG tablet Pulmonary hypertension (HCC) Has seen [facility] Cardiology Hyperlipidemia On statin therapy [...] ([facility]) Discussed with patient their [...] EDTAssociated Problem(s): Pulmonary hypertension (HCC) Has seen [facility] Cardiology * Mckayla Blas NP [...] a yearly basis documented in this encounterFreeman Neosho [id number] Instructions* Patient Instructions* Mckayla Blas NP - 01/26/2025 6:00 PM EDT Please call the [facility] to schedule your mammogram: [phone]- ext [phone] documented in this encounterFreeman Neosho [id number] NoteCardiovascular Medicine [facility] SUBJECTIVE Chief Complaint Patient presents with Congestive Heart Failure Hypertension Hyperlipidemia Mitzi Macias is a 54 y.o. female here for follow-up. PMHx: HFpEF, HTN, HLD, DM, longstanding heavy smoker, COPD, DANIEL, morbid obesity HPI 01/06/2025 Since last seen she was admitted to [facility] for AMS on 12/05/2024. She was [...] ([facility]) [facility] current use of inhaled steroid Vitamin D deficiency, unspecified Vitamin deficiency Past Medical History: Diagnosis Date COPD (chronic obstructive pulmonary disease) ([facility]) Diabetes mellitus ([facility]) Hyperlipidemia Hypertension Sleep apnea [...] , Rfl: ergocalciferol (Vitamin D-2) 1.25 MG (08556 Units) capsule, Take 1.25 mg by mouth., [...] and at bedtime., Disp: , Rfl: HYDROcodone-acetaminophen (Glasco) 5-325 mg tablet, TAKE 1 TABLET BY MOUTH THREE TIMES A DAY NEEDED FOR PAIN MUST LAST 30 DAYS, Disp: , Rfl: insulin aspart (NovoLOG) 100 unit/mL (3 mL) injection pen, Novolog Flexpen U-100 Insulin aspart 100 unit/mL (3 mL) subcutaneous, Disp: , Rfl: insulin glargine (Lantus Solostar U-100 Insulin) 100 unit/mL (3 mL) injection pen (more content not included)...[facility]07-01-2025 NotePatient is here today for a [...] and weight gain. Cardiovascular: Positive for leg swelling.[facility] 12-09-2024 History of Present illness Narrative* [...] bad light. She was ultimately taken to [facility] ER, no tox screen was done [...] 25 mg, Oral, 2 times daily HYDROcodone-acetaminophen (Glasco) 5-325 MG tablet 1 tablet, 3 times [...] ([facility]) 07/10/2023 Asthma 07/10/2023 Body mass index (BMI) 50.0-59.9, adult ([facility]) Cellulitis of left lower extremity Cervical cancer ([facility]) 09/17/2023 Chronic pain of both knees 09/17/2023 COPD (chronic obstructive pulmonary disease) ([facility]) 07/10/2023 COPD exacerbation ([facility]) 09/17/2023 Decreased functional mobility 09/17/2023 Diabetic neuropathy ([facility] 07/10/2023 Dietary counseling and surveillance Edema 07/10/2023 Elevated sed rate Elevated WBC count Essential (primary) hypertension ([facility]) GERD (gastroesophageal reflux disease) 09/17/2023 Hyperlipidemia ([facility]) 09/17/2023 Hypertension ([facility]) 07/10/2023 Insomnia 09/17/2023 MCFP (current) use of insulin ([facility]) Lower extremity edema 09/17/2023 Mixed hyperlipidemia ([facility]) Morbid (severe) obesity due to excess calories ([facility]) Obstructive sleep apnea 07/10/2023 PAD (peripheral artery disease) ([facility]) 09/17/2023 Pancreatitis 09/17/2023 Pneumonia 09/17/2023 Proteinuria, unspecified Pulmonary hypertension ([facility]) 09/17/2023 Radiculopathy, lumbar region 09/17/2023 Tobacco user 09/17/2023 Type 2 diabetes mellitus with complication, with long-term current use of insulin ([facility]) 07/10/2023 Unilateral primary osteoarthritis, right hip 09/17/2023 [...] ([facility]) Please check blood pressure daily and record DASH diet Limit caffeine Take medication as directed Contact office if chest pain, pressure, dizziness, shortness of breath, swelling legs Recommend slow position changes Current meds: hydralazine, lisinopril, Type 2 diabetes mellitus with complication, with long-term current use of insulin ([facility]) Check blood sugars daily, [...] ([facility]) Current meds: elavil, duloxtine, COPD exacerbation ([facility]) Recent ER visit for unresponsiveness , found to have fever and elevated WBC Sent home with steroids and atb Breathing is better and she feels back to her normal baseline Does have home O2, she is not wearing this today Pulmonary hypertension (CMS/HCC) Has seen [facility] Cardiology Morbid (severe) obesity due to excess calories ([facility]) Discussed with patient their [...] ([facility]) Current meds: elavil, duloxtine, * Mckayla Blas NP - 12/09/2024 7:24 AM EDTAssociated Problem(s): Type 2 diabetes mellitus with complication, with long-term current use of insulin ([facility]) Check blood sugars daily, [...] EDTAssociated Problem(s): Pulmonary hypertension (CMS/HCC) Has seen [facility] Cardiology * Mckayla Blas NP [...] wearing this today documented in this encounterFreeman Neosho [id number] Instructions* Patient Instructions* Mckayla Blas NP - 12/09/2024 10:00 AM EDT Keep appt with wound care today Keep fu with me, sooner if needed documented in this encounterFreeman Neosho [id number] History of Present illness Narrative* Mckayla Blas [...] ([facility]) Asa, statin Quit smoking [...] 25 mg, Oral, 2 times daily HYDROcodone-acetaminophen (Glasco) 5-325 MG tablet 1 tablet, 3 times [...] ([facility]) 07/10/2023 Asthma 07/10/2023 Body mass index (BMI) 50.0-59.9, adult ([facility]) Cellulitis of left lower extremity Cervical cancer ([facility]) 09/17/2023 Chronic pain of both knees 09/17/2023 COPD (chronic obstructive pulmonary disease) ([facility]) 07/10/2023 COPD exacerbation ([facility]) 09/17/2023 Decreased functional mobility 09/17/2023 Diabetic neuropathy ([facility]) 07/10/2023 Dietary counseling and surveillance Edema 07/10/2023 Elevated sed rate Elevated WBC count Essential (primary) hypertension ([facility]) GERD (gastroesophageal reflux disease) 09/17/2023 Hyperlipidemia ([facility]) 09/17/2023 Hypertension ([facility]) 07/10/2023 Insomnia 09/17/2023 MCFP (current) use of insulin ([facility]) Lower extremity edema 09/17/2023 Mixed hyperlipidemia ([facility]) Morbid (severe) obesity due to excess calories ([facility]) Obstructive sleep apnea 07/10/2023 PAD (peripheral artery disease) ([facility]) 09/17/2023 Pancreatitis 09/17/2023 Pneumonia 09/17/2023 Proteinuria, unspecified Pulmonary hypertension ([facility]) 09/17/2023 Radiculopathy, lumbar region 09/17/2023 Tobacco user 09/17/2023 Type 2 diabetes mellitus with complication, with long-term current use of insulin ([facility]) 07/10/2023 Unilateral primary osteoarthritis, right hip 09/17/2023 [...] ([facility]) - Primary Continue with cintia hudson mgmt is prescribing OARRS reviewed Fu in 3 months Goal: tighter glucose control, this has been improving, latest A1c is 7.4%!!! Hypertension ([facility]) Please check blood pressure [...] ([facility]) Check blood sugars daily, [...] to excess calories (CMS/[facility]) Discussed with patient their [...] Relevant Medications ergocalciferol (Vitamin D2) 1.25 MG (22581 UT) capsule Gastro-esophageal reflux disease without esophagitis [...] latest A1c is 7.4%!!! documented in this [facility]04-21-2025 Instructions* Patient Instructions* Mckayla Blas NP - 10/27/2024 2:00 PM EDT No dose changes in meds You will be due for mammogram I will send order to [facility], they should call you to schedule If no call, please call [phone] documented in this encounterFreeman Neosho [id number] History of Present illness Narrative* Rain Souza [...] 96, on lantus 58 units bid, lispro 9-80-63fgrya plus ISS, Trulicity 4.5 mg weekly. meter give us error during download IM 03/2022 follow up visit on 03/14/2022, A1c in the office 9.4, bg 142, on lantus 58 units bid, lispro 3-48-41nhgjt plus ISS, Trulicity 4.5 mg weekly. lab [...] or chew. ergocalciferol (Vitamin D2) 1.25 MG (89750 UT) capsule TAKE 1 CAPSULE BY MOUTH [...] 25 mg, Oral, 2 times daily HYDROcodone-acetaminophen (Glasco) 5-325 MG tablet 1 tablet, 3 times [...] ([facility]) 07/10/2023 Asthma ([facility]) 07/10/2023 Body mass index (BMI) 50.0-59.9, adult ([facility]) Cellulitis of left lower extremity Cervical cancer ([facility]) 09/17/2023 Chronic pain of both knees 09/17/2023 COPD (chronic obstructive pulmonary disease) [facility] 07/10/2023 COPD exacerbation ([facility]) 09/17/2023 Decreased functional mobility 09/17/2023 Diabetic neuropathy ([facility]) 07/10/2023 Dietary counseling and surveillance Edema 07/10/2023 Elevated sed rate Elevated WBC count Essential (primary) hypertension ([facility]) GERD (gastroesophageal reflux disease) 09/17/2023 Hyperlipidemia ([facility]) 09/17/2023 Hypertension ([facility]) 07/10/2023 Insomnia 09/17/2023 MCFP (current) use of insulin ([facility]) Lower extremity edema 09/17/2023 Mixed hyperlipidemia ([facility]) Morbid (severe) obesity due to excess calories ([facility]) Obstructive sleep apnea 07/10/2023 PAD (peripheral artery disease) ([facility]) 09/17/2023 Pancreatitis 09/17/2023 Pneumonia 09/17/2023 Proteinuria, unspecified Pulmonary hypertension ([facility]) 09/17/2023 Radiculopathy, lumbar region 09/17/2023 Tobacco user 09/17/2023 Type 2 diabetes mellitus with complication, with long-term current use of insulin ([facility]) 07/10/2023 Unilateral primary osteoarthritis, right hip 09/17/2023 [...] ([facility]) - POCT glucose manually [...] months (around 02/07/2025). documented in this encounterFreeman Neosho [id number] History of Present illness Narrative* Mckayla Blas [...] or chew. ergocalciferol (Vitamin D2) 1.25 MG (24200 UT) capsule TAKE 1 CAPSULE BY MOUTH [...] 25 mg, Oral, 2 times daily HYDROcodone-acetaminophen (Glasco) 5-325 MG tablet 1 tablet, 3 times [...] ([facility]) 07/10/2023 Asthma ([facility]) 07/10/2023 Body mass index (BMI) 50.0-59.9, adult ([facility]) Cellulitis of left lower extremity Cervical cancer ([facility]) 09/17/2023 Chronic pain of both knees 09/17/2023 COPD (chronic obstructive pulmonary disease) ([facility]) 07/10/2023 COPD exacerbation ([facility]) 09/17/2023 Decreased functional mobility 09/17/2023 Diabetic neuropathy ([facility]) 07/10/2023 Dietary counseling and surveillance Edema 07/10/2023 Elevated sed rate Elevated WBC count Essential (primary) hypertension ([facility]) GERD (gastroesophageal reflux disease) 09/17/2023 Hyperlipidemia ([facility]) 09/17/2023 Hypertension ([facility]) 07/10/2023 Insomnia 09/17/2023 MCFP (current) use of insulin ([facility]) Lower extremity edema 09/17/2023 Mixed hyperlipidemia ([facility]) Morbid (severe) obesity due to excess calories ([facility]) Obstructive sleep apnea 07/10/2023 PAD (peripheral artery disease) ([facility]) 09/17/2023 Pancreatitis 09/17/2023 Pneumonia 09/17/2023 Proteinuria, unspecified Pulmonary hypertension ([facility]) 09/17/2023 Radiculopathy, lumbar region 09/17/2023 Tobacco user 09/17/2023 Type 2 diabetes mellitus with complication, with long-term current use of insulin ([facility]) 07/10/2023 Unilateral primary osteoarthritis, [...] ([facility]) Continue with cintia hudson is prescribing OARRS reviewed Fu in 3 months Goal: tighter glucose control Hypertension ([facility]) Please check blood pressure [...] ([facility]) Check blood sugars daily, [...] of the risks of continued smoking: stroke, [place], all forms of cancer, lung disease, and [...] Uric acid Venous ulcer of right leg (CMS/[facility]) Continue with wound for treatment Had [...] ([facility]) Discussed with patient their [...] DM Body mass index (BMI) 50.0-59.9, adult (CMS/[facility]) Chronic diastolic heart failure (CMS/HCC) Current meds; [...] of the risks of continued smoking: stroke, [place], all forms of cancer, lung disease, and [...] 7=3 Current meds: TCA, and duloxetine * Mkcayla Blas NP - 08/27/2024 7:35 AM ESTAssociated Problem(s): Type 2 diabetes mellitus with complication, with long-term current use of insulin ([facility]) Check blood sugars daily, [...] ([facility]) Discussed with patient their [...] ([facility]) Follows with verena Needs smoking cessation Current meds: duoneb, albuterol, daliresp, * Mckayla Blas NP - 08/27/2024 7:30 AM ESTAssociated Problem(s): Asthma ([facility]) Current meds: albuterol, 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, 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 * Mckayla Blas NP [...] tighter glucose control documented in this encounterFreeman Neosho [id number] NoteUT Cardiology - [facility] Subjective Mitzi Macias is [...] ([facility]) Diabetes mellitus ([facility]) Hyperlipidemia Hypertension Sleep apnea [...] , Rfl: ergocalciferol (Vitamin D-2) 1.25 MG (45011 Units) capsule, Take 1.25 mg by mouth., [...] and at bedtime., Disp: , Rfl: HYDROcodone-acetaminophen (Glasco) 5-325 mg tablet, TAKE 1 TABLET BY [...] SUBCUTANEOUSLY TWICE DAILY, Disp: (more content not included)...[facility]01-[facility] History of Present illness Narrative* Mckayla [...] or chew. ergocalciferol (Vitamin D2) 1.25 MG (30154 UT) capsule TAKE 1 CAPSULE BY MOUTH ONE TIME PER WEEK furosemide (LASIX) 40 mg, Oral, Daily furosemide (LASIX) 20 mg, Oral, Daily PRN, Take in the afternoon as needed hydrALAZINE (APRESOLINE) 25 mg, Oral, 2 times daily HYDROcodone-acetaminophen (Glasco) 5-325 MG tablet 1 tablet, 3 times [...] ([facility]) 07/10/2023 Asthma ([facility]) 07/10/2023 Body mass index (BMI) 50.0-59.9, adult ([facility]) Cellulitis of left lower extremity Cervical cancer ([facility]) 09/17/2023 Chronic pain of both knees 09/17/2023 COPD (chronic obstructive pulmonary disease) ([facility]) 07/10/2023 COPD exacerbation ([facility]) 09/17/2023 Decreased functional mobility 09/17/2023 Diabetic neuropathy ([facility]) 07/10/2023 Dietary counseling and surveillance Edema 07/10/2023 Elevated sed rate Elevated WBC count Essential (primary) hypertension ([facility]) GERD (gastroesophageal reflux disease) 09/17/2023 Hyperlipidemia ([facility]) 09/17/2023 Hypertension ([facility]) 07/10/2023 Insomnia 09/17/2023 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 ([facility]) Lower extremity edema 09/17/2023 Mixed hyperlipidemia ([facility]) Morbid (severe) obesity due to excess calories ([facility]) Obstructive sleep apnea 07/10/2023 PAD (peripheral artery disease) ([facility]) 09/17/2023 Pancreatitis 09/17/2023 Pneumonia 09/17/2023 Proteinuria, unspecified Pulmonary hypertension ([facility]) 09/17/2023 Radiculopathy, lumbar region 09/17/2023 Tobacco user 09/17/2023 Type 2 diabetes mellitus with complication, with long-term current use of insulin ([facility]) 07/10/2023 Unilateral primary osteoarthritis, [...] ([facility]) Continue with tristan EAST reviewed Fu in 3 months COPD (chronic obstructive pulmonary disease) ([facility]) Stable at this time, no changes in meds Encouraged smoking cessation Cont with dr Yañez Hypertension ([facility]) - Primary Please check blood pressure daily and record DASH diet Limit caffeine Take medication as directed Contact office if chest pain, pressure, dizziness, shortness of breath, swelling legs Recommend slow position changes Current meds: hydralazine, lisinopril, Type 2 diabetes mellitus with complication, with long-term current use of insulin ([facility]) Check blood sugars daily, [...] of the risks of continued smoking: stroke, [place], all forms of cancer, lung disease, and [...] of the risks of continued smoking: stroke, IN, all forms of cancer, lung disease, and [...] ([facility]) Check blood sugars daily, [...] in 3 months documented in this encounterFreeman Neosho [id number] Hospital Discharge instructions Patient Education 06/11/2024 10:44:08 [...] require a prescription. You can also purchase enxa-tfc-dogzttz medicines. Medicines may have nicotine in them [...] and encouragement. Call telephone quitlines, such as 0-238-LXLS-NOW, reach out to support groups, or work [...] provider. Document Revised: 06/16/2022 Document Reviewed: 06/16/2022 [employer] Patient Education 2023 [employer]. 06/11/2024 10:39:22 Dietary Guidelines to Help Prevent [...] include: ?8 oz (237 mL) of milk, wmwvfyr-megdvhreyaoe-bjkkh milk, and calcium- fortifiedfruit juice. Calcium-fortified means [...] potatoes, and Chinese chard. ?Peanuts. ?Potato chips, hungarian fries, and baked potatoes with skin on. ?Nuts and nut products. ?Chocolate. If you regularly take a diuretic medicine, make sure to eat at least 1 or 2 servings of fruits or vegetables that are high in potassium each day. These include: ?Avocado. ?Banana. ?Plaquemines, prune, carrot, or tomato juice. ?Baked potato. [...] magnesium, fish oil, or vitamin B6. Take kvxm-bdd-ufiuqpx and prescription medicines only as told by [...] Casseroles. Pizza. Lasagna. Frozen meals. Potato chips. Greenlandic fries. The items listed above may not [...] provider. Document Revised: 10/05/2022 Document Reviewed: 10/05/2022 [employer] Patient Education 2023 [employer]. Follow Up Care 05/06/2024 08:24:56 With:REGLA PHIPPS, Elbert Joya, URL Address: [facility] [address] , [place] [address]- When: Unknown [facility] 12-04-2024 NotePatient Education Nephrology Dietary Guidelines to [...] ? 8 oz (237 mL) of milk, ikmmzym-kilpnmpaafbb-abogi milk, and calcium- fortifiedfruit juice. Calcium-fortified means [...] Spinach (cooked), rhubarb, beets, sweet potatoes, and Chinese chard. ? Peanuts. ? Potato chips, hungarian fries, and baked potatoes with skin on. ? Nuts and nut products. ? Chocolate. ??? If you regularly take a diuretic medicine, make sure to eat at least 1 or 2 servings of fruits or vegetables that are high in potassium each day. These include: ? Avocado. ? Banana. ? Plaquemines, prune, carrot, or tomato juice. ? Baked [...] fish oil, or vitamin B6. ??? Take tvqi-keg-cmvquqv and prescription medicines only as told by your health (more content not included)...[facility]11-19-2024 History of Present illness Narrative* Rain Souza [...] 96, on lantus 58 units bid, lispro 3-48-70risfa plus ISS, Trulicity 4.5 mg weekly. meter give us error during download IM 03/2022 follow up visit on 03/14/2022, A1c in the office 9.4, bg 142, on lantus 58 units bid, lispro 2-88-57bwdkk plus ISS, Trulicity 4.5 mg weekly. lab [...] or chew. ergocalciferol (Vitamin D2) 1.25 MG (10293 UT) capsule TAKE 1 CAPSULE BY MOUTH ONE TIME PER WEEK furosemide (LASIX) 20 mg, Oral, Daily PRN, Take in the afternoon as needed furosemide (LASIX) 40 mg, Oral, Daily Glucose Blood (ACCU-CHEK JAQUI PLUS ) 4 times daily hydrALAZINE (APRESOLINE) 25 mg, Oral, 2 times daily HYDROcodone-acetaminophen (Glasco) 5-325 MG tablet 1 tablet, 3 times [...] ([facility]) 07/10/2023 Asthma ([facility]) 07/10/2023 Body mass index (BMI) 50.0-59.9, adult ([facility]) Cellulitis of left lower extremity Cervical cancer ([facility]) 09/17/2023 Chronic pain of both knees 09/17/2023 COPD (chronic obstructive pulmonary disease) ([facility] 07/10/2023 COPD exacerbation ([facility] 09/17/2023 Decreased functional mobility 09/17/2023 Diabetic neuropathy ([facility]) 07/10/2023 Dietary counseling and surveillance Edema 07/10/2023 Elevated sed rate Elevated WBC count GERD (gastroesophageal reflux disease) 09/17/2023 Hyperlipidemia ([facility]) 09/17/2023 Hypertension ([facility]) 07/10/2023 Insomnia 09/17/2023 MCFP (current) use of insulin ([facility]) Lower extremity edema 09/17/2023 Morbid (severe) obesity due to excess calories ([facility]) Obstructive sleep apnea 07/10/2023 PAD (peripheral artery disease) ([facility]) 09/17/2023 Pancreatitis 09/17/2023 Pneumonia 09/17/2023 Proteinuria, unspecified Pulmonary hypertension ([facility]) 09/17/2023 Radiculopathy, lumbar region 09/17/2023 Tobacco user 09/17/2023 Type 2 diabetes mellitus with complication, with long-term current use of insulin ([facility]) 07/10/2023 Unilateral primary osteoarthritis, right hip 09/17/2023 [...] ([facility]) - POCT glucose manually resulted - POCT glycosylated hemoglobin (Hb A1C) docked device We will continue with Lantus 58, lispro 02/16/12 according to meal size, Mounjaro 15 mg once weekly, Farxiga 5 mg once a day Encounter for dietary consultation Vitamin D deficiency Primary hypertension ([facility]) To follow with her PCP Insulin long-term use ([facility]) Hyperlipemia, mixed ([facility]) Continue with Zocor 10 mg once daily Microalbuminuria Class 3 severe obesity due to excess calories with serious comorbidity and body mass index (BMI) of50.0 to 59.9 in adult ([facility]) Diet and exercise reviewed with the patient Follow up in about 3 months (around 08/27/2024). documented in this encounterFreeman Neosho [id number] History of Present illness Narrative* Mckayla Blas [...] ([facility]) Check blood sugars daily, [...] ([facility]) Stable on current meds Refill meds * Mckayla Blas NP - 04/14/2024 11:42 AM EDTAssociated Problem(s): COPD (chronic obstructive pulmonary disease) ([facility]) Stable at this time, [...] being taken. She does not see a volleyball player.Eye exam is not current. Hypertension This is [...] or chew. ergocalciferol (Vitamin D2) 1.25 MG (55354 UT) capsule TAKE 1 CAPSULE BY MOUTH ONE TIME PER WEEK furosemide (LASIX) 20 mg, Oral, Daily PRN, Take in the afternoon as needed furosemide (LASIX) 40 mg, Oral, Daily Glucose Blood (ACCU-CHEK JAQUI PLUS ) 4 times daily HumaLOG KWIKPEN 100 UNIT/ML injection Subcutaneous hydrALAZINE (APRESOLINE) 25 mg, Oral, 2 times daily HYDROcodone-acetaminophen (Glasco) 5-325 MG tablet 1 tablet, 3 times [...] CT Albuminuria 09/17/2023 Angiomyolipoma Anxiety and depression ([facility]) 07/10/2023 Asthma ([facility]) 07/10/2023 Cellulitis of left lower extremity Cervical cancer ([facility]) 09/17/2023 Chronic pain of both knees 09/17/2023 COPD (chronic obstructive pulmonary disease) ([facility]) 07/10/2023 COPD exacerbation ([facility]) 09/17/2023 Decreased functional mobility 09/17/2023 Diabetic neuropathy ([facility]) 07/10/2023 Edema 07/10/2023 Elevated sed rate Elevated WBC count GERD (gastroesophageal reflux disease) 09/17/2023 Hyperlipidemia ([facility]) 09/17/2023 Hypertension ([facility]) 07/10/2023 Insomnia 09/17/2023 Lower extremity edema 09/17/2023 Obstructive sleep apnea 07/10/2023 PAD (peripheral artery disease) ([facility]) 09/17/2023 Pancreatitis 09/17/2023 Pneumonia 09/17/2023 Pulmonary hypertension ([facility]) 09/17/2023 Radiculopathy, lumbar region 09/17/2023 Tobacco user 09/17/2023 Type 2 diabetes mellitus with complication, with long-term current use of insulin ([facility]) 07/10/2023 Unilateral primary osteoarthritis, [...] ([facility]) Continue with tristan EAST reviewed Fu in 3 months Relevant Medications pregabalin (Lyrica) 300 MG capsule COPD (chronic obstructive pulmonary disease) ([facility]) - Primary Stable at this time, no changes in meds Encouraged smoking cessation Cont with dr Yañez Hypertension ([facility]) Stable on current meds Refill meds Relevant Medications hydrALAZINE (Apresoline) 25 MG tablet lisinopril 20 MG tablet Type 2 diabetes mellitus with complication, with long-term current use of insulin ([facility]) Check blood sugars daily, [...] ([facility]) Relevant Medications DULoxetine (Cymbalta) 60 MG [...] ([facility]) Relevant Medications dapagliflozin (Farxiga) 10 MG Gastro-esophageal reflux disease without esophagitis Relevant Medications omeprazole (PriLOSEC) [address] capsule Edema, unspecified Relevant Medications potassium chloride ER (Micro-K) 10 MEQ ER capsule Edema Relevant Medications potassium chloride ER (Micro-K) 10 MEQ ER capsule Chronic obstructive pulmonary disease, unspecified ([facility]) Relevant Medications Roflumilast 500 MCG tablet documented in this encounterFreeman Neosho [id number] Hospital Discharge instructions Patient Education 11/15/2022 14:09:21 [...] include: ?8 oz (237 mL) of milk, rusityk-jzqbmdcudosb-xtvcc milk, and calcium- fortifiedfruit juice. Calcium-fortified means [...] potatoes, and Chinese chard. ?Peanuts. ?Potato chips, hungarian fries, and baked potatoes with skin on. ?Nuts and nut products. ?Chocolate. If you regularly take a diuretic medicine, make sure to eat at least 1 or 2 servings of fruits or vegetables that are high in potassium each day. These include: ?Avocado. ?Banana. ?[place], prune, carrot, or tomato juice. ?Baked potato. [...] magnesium, fish oil, or vitamin B6. Take gvxn-wra-natepul and prescription medicines only as told by [...] Casseroles. Pizza. Lasagna. Frozen meals. Potato chips. Greenlandic fries. The items listed above may not [...] provider. Document Revised: 03/06/2022 Document Reviewed: 03/06/2022 [employer] Patient Education 2022 [employer]. Follow Up Care 02/06/2022 11:44:09 With:SILVIA HOWELL, GAVIOTA Webb, URL Address: [address] [place] [address] When: Unknown [facility] [place] [place] 02-16-2023 NoteCONSULTATION CONSULTATION DATE: 08/24/2022 HISTORY OF [...] We maintain her on pain medication with Glasco 5/325 t.i.d., diclofenac 75 mg b.i.d. Her [...] her at this point. A refill for Glasco 5/325 t.i.d. and diclofenac 75 mg b.i.d. will be sent to the pharmacy. Vitamin compliance and nutrition were discussed and enforced. I did highly encourage her to use exercise bands to increase the strength in her lower extremities. We will see her in three months' time, unless otherwise indicated, and patient agrees.[facility] [id number] NoteCONSULTATION CONSULTATION DATE: 05/11/2022 This 51-year-old female [...] 150. Medications include Lyrica 300 mg b.i.d., Glasco 5/325 t.i.d., diclofenac 75 mg b.i.d. and [...] her medications today. We will maintain Lyrica, Glasco and diclofenac at the set dose and frequency. We will follow-up in the clinic in three months' time. The patient is in agreement to this. Vitamin importance and nutrition were discussed.[facility] [id number] NoteCONSULTATION CONSULTATION DATE: 04/20/2022 HISTORY OF PRESENT [...] medications include Tylenol, Lyrica 300 mg b.i.d., Glasco 5/325 t.i.d., amitriptyline, diclofenac and duloxetine. Patient's [...] will be followed up in the clinic.[facility] [id number] Evaluation note* Encounter Date Diagnosis Assessment Notes [...] to the DANIEL. Thrombocytopenia is unclear etiology. [employer] Other 08-15-2022 Evaluation note* Encounter Date [...] follow with Dr. Souza and Dr. Arauz. [facility] [facility] Other 08-01-2022 Hospital Discharge instructions Patient [...] fried and sweet foods. General instructions Take kvnk-nds-tvgumpt and prescription medicines only as told by [...] 04/21/2010 Document Revised: 10/16/2019 Document Reviewed: 07/11/2018 [employer] Patient Education 2020 [employer]. Follow Up Care 01/05/2022 12:02:03 With:REGLA PHIPPS, Elbert Joya, URL Address: [facility] [address], [place] [phone] When:Within 6 Month(s) Comments:w/ repeat CT A/P [facility] 07-14-2022 NoteCONSULTATION PROCEDURE DATE: 01/19/2022 PRE [...] Approved by: GIL VALENZUELA . 01/27/2022 14:15:00[facility]07-14-2022 NoteCONSULTATION CONSULTATION DATE: 01/19/2022 This is a [...] today. Medications include Lyrica 300 mg b.i.d., Glasco 5/325 t.i.d., diclofenac 75 mg b.i.d. and [...] Approved by: GIL VALENZUELA . 01/27/2022 14:[facility]00[facility]ments Appointment Date:08/14/2022 09:15:00 AM Scheduled Provider:Elbert ARAUZ MD Location:[facility] Appointment Type:URO Office Visit [facility] evaluation + Plan note Future Appointments Appointment Date:04/22/2024 10:00:00 AM Scheduled Provider:GAVIOTA ADAMES PA-C Location:[facility] Appointment Type:URO Office Visit [facility] evaluation note* Diagnosis Type 2 diabetes mellitus with unspecified complications ([facility]/H[facility]) Edema, unspecified Edema documented in this encounter [facility]* Diagnosis Vaginal yeast infection- Primary Candidiasis of vulva and vagina documented in this encounter [facility] HealthcareEvaluation note* Diagnosis Primary hypertension (CMS/HCC)- [...] skin Other dyschromia documented in this encounter [facility] HealthcareEvaluation note* Diagnosis Obstructive sleep apnea- [...] ([facility]) Chronic obstructive pulmonary disease, unspecified ([facility]) Pulmonary emphysema, unspecified emphysema type ([facility]) Bilateral lower extremity edema Tobacco user Tobacco use disorder Hyperpigmentation of skin Other dyschromia Type 2 diabetes mellitus with hyperglycemia, with long-term current use of insulin ([facility])- Primary Encounter for dietary consultation Vitamin D deficiency Primary hypertension ([facility]) Unspecified essential hypertension Insulin long-term use ([facility]) Encounter for long-term (current) use of insulin Hyperlipemia, mixed ([facility]) Mixed hyperlipidemia Microalbuminuria Proteinuria Class 3 severe obesity due to excess calories with serious comorbidity and body mass index (BMI) of50.0 to 59.9 in adult ([facility]) documented in this encounter [facility]* Diagnosis Hyperlipidemia, unspecified ([facility]) Bilateral lower extremity edema documented in this encounter [facility] HealthcareEvaluation note* Diagnosis Vitamin D deficiency, unspecified documented in this encounter [facility] HealthcareEvaluation note* Diagnosis Obstructive sleep apnea- Primary Obstructive sleep apnea (adult) (pediatric) Pulmonary emphysema, unspecified emphysema type ([facility]) Primary hypertension ([facility]) Unspecified essential hypertension Type 2 diabetes mellitus with complication, with long-term current use of insulin ([facility]) Anxiety and depression ([facility]) Bilateral lower extremity edema Pulmonary emphysema, unspecified emphysema type ([facility])- Primary Primary hypertension ([facility]) Unspecified essential hypertension Class 3 severe obesity with serious comorbidity and body mass index (BMI) of 50.0 to 59.9 in adult,unspecified obesity type ([facility]) Obstructive sleep apnea Obstructive sleep apnea (adult) (pediatric) Pulmonary hypertension ([facility]) Other chronic pulmonary heart diseases Tobacco user Tobacco use disorder Cardiomegaly Primary hypertension ([facility])- Primary Unspecified essential hypertension Gastroesophageal reflux disease, unspecified whether esophagitis present Type 2 diabetes mellitus with complication, with long-term current use of insulin ([facility]) Mixed hyperlipidemia ([facility]) Mixed hyperlipidemia Tobacco user Tobacco use disorder Encounter for screening mammogram for malignant neoplasm of breast Chronic obstructive pulmonary disease, unspecified ([facility]) Other specified chronic obstructive pulmonary disease ([facility]) Anxiety and depression ([facility]) Edema, unspecified Edema Hyperlipidemia, unspecified ([facility]) Diabetic polyneuropathy associated with [...] ([facility]) Bilateral lower extremity edema Tobacco user Tobacco use disorder Hyperpigmentation of skin Other dyschromia Bilateral lower extremity edema documented in this encounter [facility]* Diagnosis Obstructive sleep apnea- Primary Obstructive sleep apnea (adult) (pediatric) Pulmonary emphysema, unspecified emphysema type ([facility]/HCC) Primary hypertension ([facility]) Unspecified essential hypertension Type 2 diabetes mellitus with complication, with long-term current use of insulin ([facility]) Anxiety and depression ([facility]) Bilateral lower extremity edema Pulmonary emphysema, unspecified emphysema type (CMS/HCC)- Primary Primary hypertension ([facility]) Unspecified essential hypertension Class 3 severe obesity with serious comorbidity and body mass index (BMI) of 50.0 to 59.9 in adult,unspecified obesity type ([facility]) Obstructive sleep apnea Obstructive sleep apnea (adult) (pediatric) Pulmonary hypertension ([facility]) Other chronic pulmonary heart diseases Tobacco user Tobacco use disorder Cardiomegaly Primary hypertension ([facility])- Primary Unspecified essential hypertension Gastroesophageal reflux disease, unspecified whether esophagitis present Type 2 diabetes mellitus with complication, with long-term current use of insulin ([facility]) Mixed hyperlipidemia ([facility]) Mixed hyperlipidemia Tobacco user Tobacco use disorder Encounter for screening mammogram for malignant neoplasm of breast Chronic obstructive pulmonary disease, unspecified ([facility]) Other specified chronic obstructive pulmonary disease ([facility]) Anxiety and depression ([facility]) Edema, unspecified Edema Hyperlipidemia, unspecified ([facility]) Diabetic polyneuropathy associated with type 2 diabetes mellitus ([facility]) Gout, unspecified cause, unspecified chronicity, unspecified site Non-seasonal allergic rhinitis, unspecified trigger Bilateral lower extremity edema COPD exacerbation ([facility]) Obstructive chronic bronchitis with exacerbation Pulmonary emphysema, unspecified emphysema type ([facility]) Venous insufficiency Unspecified venous (peripheral) insufficiency Candidiasis of breast COPD exacerbation ([facility])- Primary Obstructive chronic bronchitis with exacerbation Pulmonary hypertension ([facility]) Other chronic pulmonary heart diseases Class 3 severe obesity with serious comorbidity and body mass index (BMI) of 50.0 to 59.9 in adult,unspecified obesity type ([facility]) Encounter for subsequent annual wellness visit (AWV) in Medicare patient- Primary Type 2 diabetes mellitus with unspecified complications ([facility]) Pulmonary emphysema, unspecified emphysema type (CMS/HCC) Moderate persistent asthma without complication (CMS/HCC) Primary hypertension (CMS/[facility]) Unspecified essential hypertension Type 2 diabetes mellitus with complication, with long-term current use of insulin ([facility]) Class 3 severe obesity [...] ([facility]) Major depressive disorder, single [...] ([facility])- Primary Unspecified essential hypertension Insomnia Insomnia, unspecified Type 2 diabetes mellitus with complication, with long-term current use of insulin (CMS/[facility]) Non-seasonal allergic rhinitis, unspecified trigger Type 2 diabetes mellitus with unspecified complications ([facility]) Anxiety and depression ([facility]) Gastro-esophageal reflux disease without esophagitis Edema, unspecified Edema Diabetic polyneuropathy associated with type 2 diabetes mellitus ([facility]) Chronic obstructive pulmonary disease, [...] [facility]) PAD (peripheral artery disease) ([facility]) Unspecified peripheral vascular disease [...] unspecified complications (CMS/HCC) documented in this encounter [facility] HealthcareEvaluation note* Diagnosis Obstructive sleep apnea- Primary Obstructive sleep apnea (adult) (pediatric) Pulmonary emphysema, unspecified emphysema type (CMS/HCC) Primary hypertension (CMS/HCC) Unspecified essential hypertension Type 2 diabetes mellitus with complication, with long-term current use of insulin (CMS/HCC) Anxiety and depression (CMS/HCC) Bilateral lower extremity edema Pulmonary emphysema, unspecified emphysema type (CMS/HCC)- Primary Primary hypertension (CMS/[facility]) [...] current use of insulin (CMS/HCC) Mixed hyperlipidemia ([facility] [facility] Mixed hyperlipidemia Tobacco user Tobacco use disorder Encounter for screening mammogram for malignant neoplasm of breast Chronic obstructive pulmonary disease, unspecified (CMS/[facility]) Other specified chronic obstructive pulmonary disease (CMS/HCC) Anxiety and depression (CMS/HCC) Edema, unspecified Edema Hyperlipidemia, unspecified ([facility] [...] adult,unspecified obesity type (CMS/[facility]) Encounter for subsequent annual [...] ([facility]) Chronic obstructive pulmonary disease, [...] ([facility]) Unspecified peripheral vascular disease [...] ([facility]) Radiculopathy, lumbar region Thoracic or lumbosacral neuritis or radiculitis, unspecified Non-seasonal allergic rhinitis, unspecified trigger Type 2 diabetes mellitus with unspecified complications ([facility]) Anxiety [facility] depression ([facility])- Primary Morbid (severe) obesity due to excess calories ([facility]) Body mass index (BMI) 50.0-59.9, adult ([facility]) Malignant neoplasm of cervix uteri, unspecified ([facility]) Diabetic polyneuropathy associated with type 2 diabetes mellitus ([facility] Chronic diastolic heart failure ([facility] Chronic diastolic heart failure Primary hypertension ([facility] Unspecified essential hypertension 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 ([facility]) Gastroesophageal reflux disease, unspecified whether esophagitis present Bilateral lower extremity edema Type 2 diabetes mellitus with complication, with long-term current use of insulin ([facility] Tobacco user Tobacco use disorder Mixed hyperlipidemia ([facility]) Mixed hyperlipidemia Gout, unspecified cause, unspecified chronicity, unspecified site Vitamin deficiency Unspecified vitamin deficiency Gastro-esophageal reflux disease without esophagitis Edema, unspecified Edema Hyperlipidemia, unspecified ([facility]) Encounter for smoking cessation counseling Venous ulcer of right leg ([facility]) Antibiotic-induced yeast infection documented in this encounter [facility] HealthcareEvaluation note* Diagnosis Obstructive sleep apnea- Primary Obstructive sleep apnea (adult) (pediatric) Pulmonary emphysema, unspecified emphysema type ([facility]) Primary hypertension ([facility]) Unspecified essential hypertension Type 2 diabetes mellitus with complication, with long-term current use of insulin ([facility] Anxiety and depression ([facility]) Bilateral lower extremity edema Pulmonary emphysema, unspecified emphysema type ([facility])- Primary Primary hypertension ([facility]) Unspecified essential hypertension Class 3 severe obesity with serious comorbidity and body mass index (BMI) of 50.0 to 59.9 in adult,unspecified obesity type Obstructive sleep apnea Obstructive sleep apnea (adult) (pediatric) Pulmonary hypertension ([facility]) Other chronic pulmonary heart diseases Tobacco user Tobacco use disorder Cardiomegaly Primary hypertension ([facility])- Primary Unspecified essential hypertension Gastroesophageal reflux disease, unspecified whether esophagitis present Type 2 diabetes mellitus with complication, with long-term current use of insulin ([facility]) Mixed hyperlipidemia (CMS/[facility]) Mixed hyperlipidemia Tobacco user Tobacco use disorder Encounter for screening mammogram for malignant neoplasm of breast Chronic obstructive pulmonary disease, unspecified Other specified chronic obstructive pulmonary disease Anxiety and depression (CMS/[facility]) [...] ([facility] Moderate persistent asthma without complication ([facility]) Primary hypertension ([facility]) Unspecified essential hypertension Type 2 diabetes mellitus with complication, with long-term current use of insulin ([facility]) Class 3 severe obesity with serious comorbidity and body mass index (BMI) of 50.0 to 59.9 in adult,unspecified obesity type Tobacco user Tobacco use disorder Other headache syndrome Malignant neoplasm of cervix uteri, unspecified Other specified disorders of adrenal gland Major depressive disorder, single episode, mild (HCC) ([facility]) Major depressive disorder, single [...] ([facility]) Gastro-esophageal reflux disease without esophagitis Edema, unspecified Edema Diabetic polyneuropathy associated with type 2 diabetes mellitus ([facility]) Chronic obstructive pulmonary disease, unspecified Pulmonary emphysema, unspecified emphysema type ([facility]) Bilateral lower extremity edema Tobacco user Tobacco use disorder Hyperpigmentation of skin Other dyschromia Primary hypertension ([facility])- Primary Unspecified essential hypertension Diabetic polyneuropathy associated with type 2 diabetes mellitus ([facility]) Pulmonary emphysema, unspecified emphysema type ([facility] Critical limb ischemia of right lower extremity ([facility]) PAD (peripheral artery disease) ([facility]) Unspecified peripheral vascular disease Gastroesophageal reflux disease, unspecified whether esophagitis present Bilateral lower extremity edema Venous ulcer of right leg ([facility]) Type 2 diabetes mellitus with complication, with long-term current use of insulin ([facility]) Tobacco user Tobacco use disorder Encounter for smoking cessation counseling Kidney stone Calculus of kidney Adrenal mass 1 cm to 4 cm in diameter ([facility]) Radiculopathy, lumbar region Thoracic or lumbosacral neuritis or radiculitis, unspecified Non-seasonal allergic rhinitis, unspecified trigger Type 2 diabetes mellitus with unspecified complications Anxiety and depression ([facility])- Primary Morbid (severe) obesity due to excess calories ([facility]) Body mass index (BMI) 50.0-59.9, adult ([facility]) Malignant neoplasm of cervix uteri, unspecified Diabetic polyneuropathy associated with type 2 diabetes mellitus ([facility]) Chronic diastolic heart failure ([facility]) Chronic diastolic heart failure Primary hypertension ([facility]) Unspecified essential hypertension 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 Gastroesophageal reflux disease, unspecified whether esophagitis present Bilateral lower extremity edema Type 2 diabetes mellitus with complication, with long-term current use of insulin ([facility]) Tobacco user Tobacco use disorder Mixed hyperlipidemia ([facility]) Mixed hyperlipidemia Gout, unspecified cause, unspecified chronicity, unspecified site Vitamin deficiency Unspecified vitamin deficiency Gastro-esophageal reflux disease without esophagitis Edema, unspecified Edema Hyperlipidemia, unspecified ([facility]) Encounter for smoking cessation counseling Venous ulcer of right leg ([facility]) Antibiotic-induced yeast infection Type 2 diabetes mellitus with hyperglycemia, with long-term current use of insulin ([facility])- Primary Encounter for dietary consultation Vitamin D deficiency Primary hypertension ([facility]) Unspecified essential hypertension Insulin long-term use ([facility]) Encounter for long-term (current) use of insulin Hyperlipemia, mixed ([facility]) Mixed hyperlipidemia Microalbuminuria Proteinuria Class 3 severe obesity due to excess calories with serious comorbidity and body mass index (BMI) of50.0 to 59.9 in adult documented in this encounter [facility] HealthcareEvaluation note* Diagnosis Obstructive sleep apnea- Primary Obstructive sleep apnea (adult) (pediatric) Pulmonary emphysema, unspecified emphysema type ([facility]) Primary hypertension ([facility]) Unspecified essential hypertension Type 2 diabetes mellitus with complication, with long-term current use of insulin ([facility]) Anxiety and depression ([facility]) Bilateral lower extremity edema Pulmonary emphysema, unspecified emphysema type ([facility])- Primary Primary hypertension ([facility]) Unspecified essential hypertension Class 3 severe obesity with serious comorbidity and body mass index (BMI) of 50.0 to 59.9 in adult,unspecified obesity type Obstructive sleep apnea Obstructive sleep apnea (adult) (pediatric) Pulmonary hypertension ([facility]) Other chronic pulmonary heart diseases Tobacco user Tobacco use disorder Cardiomegaly Primary hypertension ([facility])- Primary Unspecified essential hypertension Gastroesophageal reflux disease, unspecified whether esophagitis present Type 2 diabetes mellitus with complication, with long-term current use of insulin ([facility]) Mixed hyperlipidemia ([facility]) Mixed hyperlipidemia Tobacco user Tobacco use disorder Encounter for screening mammogram for malignant neoplasm of breast Chronic obstructive pulmonary disease, unspecified Other specified chronic obstructive pulmonary disease Anxiety and depression ([facility]) Edema, unspecified Edema Hyperlipidemia, unspecified ([facility]) Diabetic polyneuropathy associated with type 2 diabetes mellitus ([facility]) Gout, unspecified cause, unspecified chronicity, unspecified site Non-seasonal allergic rhinitis, unspecified trigger Bilateral lower extremity edema COPD exacerbation ([facility]) Obstructive chronic bronchitis with exacerbation Pulmonary emphysema, unspecified emphysema type ([facility]) Venous insufficiency Unspecified venous (peripheral) insufficiency Candidiasis of breast COPD exacerbation ([facility])- Primary Obstructive chronic bronchitis with exacerbation Pulmonary hypertension ([facility]) Other chronic pulmonary heart diseases Class 3 severe obesity with serious comorbidity and body mass index (BMI) of 50.0 to 59.9 in adult,unspecified obesity type Encounter for subsequent annual wellness visit (AWV) in Medicare patient- Primary Type 2 diabetes mellitus with unspecified complications Pulmonary emphysema, unspecified emphysema type ([facility] Moderate persistent asthma without complication ([facility]) Primary hypertension ([facility]) Unspecified essential hypertension Type 2 diabetes mellitus with complication, with long-term current use of insulin ([facility]) Class 3 severe obesity with serious comorbidity and body mass index (BMI) of 50.0 to 59.9 in adult,unspecified obesity type Tobacco user Tobacco use disorder Other headache syndrome Malignant neoplasm of cervix uteri, unspecified Other specified disorders of adrenal gland Major depressive disorder, single episode, mild (HCC) ([facility]) Major depressive disorder, single episode, mild Non-pressure chronic ulcer of other part of left lower leg with fat layer exposed Chronic respiratory failure, unspecified whether with hypoxia or hypercapnia Disorder of adrenal gland, unspecified Non-pressure chronic ulcer of other part of right lower leg limited to breakdown of skin ([facility]) Non-recurrent acute suppurative otitis media of left ear without spontaneous rupture of tympanic membrane Primary hypertension ([facility])- Primary Unspecified essential hypertension Insomnia Insomnia, unspecified Type 2 diabetes mellitus with complication, with long-term current use of insulin ([facility]) Non-seasonal allergic rhinitis, unspecified trigger Type 2 diabetes mellitus with unspecified complications Anxiety and depression ([facility]) Gastro-esophageal reflux disease without esophagitis Edema, unspecified Edema Diabetic polyneuropathy associated with type 2 diabetes mellitus ([facility]) Chronic obstructive pulmonary disease, unspecified Pulmonary emphysema, unspecified emphysema type ([facility]) Bilateral lower extremity edema Tobacco user Tobacco use disorder Hyperpigmentation of skin Other dyschromia Primary hypertension ([facility])- Primary Unspecified essential hypertension Diabetic polyneuropathy associated with type 2 diabetes mellitus ([facility]) Pulmonary emphysema, unspecified emphysema type ([facility]) Critical limb ischemia of right lower extremity ([facility]) PAD (peripheral artery disease) ([facility]) Unspecified peripheral vascular disease Gastroesophageal reflux disease, unspecified whether esophagitis present Bilateral lower extremity edema Venous ulcer of right leg ([facility]) Type 2 diabetes mellitus with complication, with long-term current use of insulin ([facility]) Tobacco user Tobacco use disorder Encounter for smoking cessation counseling Kidney stone Calculus of kidney Adrenal mass 1 cm to 4 cm in diameter ([facility]) Radiculopathy, lumbar region Thoracic or lumbosacral neuritis or radiculitis, unspecified Non-seasonal allergic rhinitis, unspecified trigger Type 2 diabetes mellitus with unspecified complications Anxiety and depression ([facility])- Primary Morbid (severe) obesity due to excess calories ([facility]) Body mass index (BMI) 50.0-59.9, adult ([facility]) Malignant neoplasm of cervix uteri, unspecified Diabetic polyneuropathy associated with type 2 diabetes mellitus ([facility] Chronic diastolic heart failure ([facility]) Chronic diastolic heart failure Primary hypertension ([facility]) Unspecified essential hypertension 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 Gastroesophageal reflux disease, unspecified whether esophagitis present Bilateral lower extremity edema Type 2 diabetes mellitus with complication, with long-term current use of insulin ([facility] Tobacco user Tobacco use disorder Mixed hyperlipidemia ([facility]) Mixed hyperlipidemia Gout, unspecified cause, unspecified chronicity, unspecified site Vitamin deficiency Unspecified vitamin deficiency Gastro-esophageal reflux disease without esophagitis Edema, unspecified Edema Hyperlipidemia, unspecified ([facility]) Encounter for smoking cessation counseling Venous ulcer of right leg ([facility]) Antibiotic-induced yeast infection Chronic obstructive pulmonary disease, unspecified documented in this encounter [facility] HealthcareEvaluation note* Diagnosis Obstructive sleep apnea- Primary Obstructive sleep apnea (adult) (pediatric) Pulmonary emphysema, unspecified emphysema type ([facility]) Primary hypertension ([facility]) Unspecified essential hypertension Type 2 diabetes mellitus with complication, with long-term current use of insulin ([facility]) Anxiety and depression ([facility]) Bilateral lower extremity edema Pulmonary emphysema, unspecified emphysema type ([facility])- Primary Primary hypertension ([facility]) Unspecified essential hypertension Class 3 severe obesity with serious comorbidity and body mass index (BMI) of 50.0 to 59.9 in adult,unspecified obesity type Obstructive sleep apnea Obstructive sleep apnea (adult) (pediatric) Pulmonary hypertension ([facility]) Other chronic pulmonary heart diseases Tobacco user Tobacco use disorder Cardiomegaly Primary hypertension ([facility])- Primary Unspecified essential hypertension Gastroesophageal reflux disease, unspecified whether esophagitis present Type 2 diabetes mellitus with complication, with long-term current use of insulin ([facility]) Mixed hyperlipidemia ([facility]) Mixed hyperlipidemia Tobacco user Tobacco use disorder Encounter for screening mammogram for malignant neoplasm of breast Chronic obstructive pulmonary disease, unspecified Other specified chronic obstructive pulmonary disease Anxiety and depression ([facility]) Edema, unspecified Edema Hyperlipidemia, unspecified ([facility]) Diabetic polyneuropathy associated with type 2 diabetes mellitus ([facility]) Gout, unspecified cause, unspecified chronicity, unspecified site Non-seasonal allergic rhinitis, unspecified trigger Bilateral lower extremity edema COPD exacerbation ([facility]) Obstructive chronic bronchitis with exacerbation Pulmonary emphysema, unspecified emphysema type ([facility]) Venous insufficiency Unspecified venous [...] ([facility] Moderate persistent asthma without complication ([facility]) Primary hypertension ([facility]) Unspecified essential hypertension Type 2 diabetes mellitus with complication, with long-term current use of insulin ([facility]) Class 3 severe obesity with serious comorbidity and body mass index (BMI) of 50.0 to 59.9 in adult,unspecified obesity type Tobacco user Tobacco use disorder Other headache syndrome Malignant neoplasm of cervix uteri, unspecified Other specified disorders of adrenal gland Major depressive disorder, single episode, mild (HCC) ([facility]) Major depressive disorder, single episode, mild Non-pressure chronic ulcer of other part of left lower leg with fat layer exposed Chronic respiratory failure, unspecified whether with hypoxia or hypercapnia Disorder of adrenal gland, unspecified Non-pressure chronic ulcer of other part of right lower leg limited to breakdown of skin ([facility]) Non-recurrent acute suppurative otitis media of left ear without spontaneous rupture of tympanic membrane Primary hypertension ([facility])- Primary Unspecified essential hypertension Insomnia Insomnia, unspecified Type 2 diabetes mellitus with complication, with long-term current use of insulin ([facility]) Non-seasonal allergic rhinitis, unspecified trigger Type 2 diabetes mellitus with unspecified complications Anxiety and depression ([facility]) Gastro-esophageal reflux disease without esophagitis Edema, unspecified Edema Diabetic polyneuropathy associated with type 2 diabetes mellitus ([facility]) Chronic obstructive pulmonary disease, unspecified Pulmonary emphysema, unspecified emphysema type ([facility]) Bilateral lower extremity edema Tobacco user Tobacco use disorder Hyperpigmentation of skin Other dyschromia Primary hypertension (CMS/[facility])- Primary Unspecified essential hypertension Diabetic polyneuropathy associated with type 2 diabetes mellitus (CMS/[facility]) Pulmonary emphysema, unspecified emphysema type ([facility]) Critical limb ischemia of right lower extremity ([facility]) PAD (peripheral artery disease) ([facility]) Unspecified peripheral vascular disease Gastroesophageal reflux disease, unspecified whether esophagitis present Bilateral lower extremity edema Venous ulcer of right leg ([facility]) Type 2 diabetes mellitus with complication, with long-term current use of insulin ([facility]) Tobacco user Tobacco use disorder Encounter for smoking cessation counseling Kidney stone Calculus of kidney Adrenal mass 1 cm to 4 cm in diameter ([facility]) Radiculopathy, lumbar region Thoracic or lumbosacral neuritis or radiculitis, unspecified Non-seasonal allergic rhinitis, unspecified trigger Type 2 diabetes mellitus with unspecified complications Anxiety and depression ([facility])- Primary Morbid (severe) obesity due to excess calories ([facility]) Body mass index (BMI) 50.0-59.9, adult ([facility]) Malignant neoplasm of cervix uteri, unspecified Diabetic polyneuropathy associated with type 2 diabetes mellitus ([facility] Chronic diastolic heart failure ([facility]) Chronic diastolic heart failure Primary hypertension ([facility]) Unspecified essential hypertension 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 Gastroesophageal reflux disease, unspecified whether esophagitis present Bilateral lower extremity edema Type 2 diabetes mellitus with complication, with long-term current use of insulin ([facility]) Tobacco user Tobacco use disorder Mixed hyperlipidemia ([facility]) Mixed hyperlipidemia Gout, unspecified cause, unspecified chronicity, unspecified site Vitamin deficiency Unspecified vitamin deficiency Gastro-esophageal reflux disease without esophagitis Edema, unspecified Edema Hyperlipidemia, unspecified ([facility] Encounter for smoking cessation counseling Venous ulcer of right leg ([facility]) Antibiotic-induced yeast infection Primary hypertension ([facility] Primary Unspecified essential hypertension Diabetic polyneuropathy associated with type 2 diabetes mellitus ([facility]) Chronic diastolic heart failure ([facility]) Chronic diastolic heart failure Bilateral lower extremity edema Morbid (severe) obesity due to excess calories ([facility]) Type 2 diabetes mellitus with complication, with long-term current use of insulin ([facility]) Anxiety and depression ([facility]) Cigarette nicotine dependence without complication Encounter for screening mammogram for malignant neoplasm of breast Insomnia Insomnia, unspecified Non-seasonal allergic rhinitis, unspecified trigger Type 2 diabetes mellitus with unspecified complications Vitamin D deficiency, unspecified Gastro-esophageal reflux disease without esophagitis PAD (peripheral artery disease) ([facility]) Unspecified peripheral vascular disease Gastroesophageal reflux disease, unspecified whether esophagitis present Venous ulcer of right leg ([facility]) documented in this encounter [facility] HealthcareEvaluation note* Diagnosis Obstructive sleep apnea- [...] ([facility]) Obstructive sleep apnea Obstructive [...] ([facility]) Encounter for subsequent annual [...] 50.0 to 59.9 in adult,unspecified obesity type ([facility] Tobacco user Tobacco use disorder Other headache [...] ([facility]) PAD (peripheral artery disease) [...] ([facility]) Body mass index (BMI) 50.0-59.9, adult ([facility]) Malignant neoplasm of cervix uteri, unspecified ([facility] [...] ([facility]) Type 2 diabetes mellitus [...] ([facility]) Type 2 diabetes mellitus with complication, with long-term current use of insulin ([facility]) Anxiety and depression Fever, unspecified fever cause Hyperlipidemia, unspecified Tobacco user Tobacco use disorder Encounter for smoking cessation counseling documented in this encounter [facility] HealthcareEvaluation note* Diagnosis Obstructive sleep apnea- Primary Obstructive sleep apnea (adult) (pediatric) Pulmonary emphysema, unspecified emphysema type ([facility]) Primary hypertension ([facility]) Unspecified essential hypertension Type 2 diabetes mellitus with complication, with long-term current use of insulin ([facility]) Anxiety and depression ([facility]) Bilateral lower extremity edema Pulmonary emphysema, unspecified emphysema type ([facility])- Primary Primary hypertension ([facility]) Unspecified essential hypertension Class [...] chronic obstructive pulmonary disease Anxiety and depression (CMS/[facility]) Edema, unspecified Edema Hyperlipidemia, unspecified (CMS/HCC) Diabetic polyneuropathy associated with type 2 diabetes mellitus (CMS/[facility]) Gout, unspecified cause, unspecified chronicity, unspecified site Non-seasonal allergic rhinitis, unspecified trigger Bilateral lower extremity edema COPD exacerbation ([facility]) Obstructive chronic bronchitis with [...] complication (CMS/[facility]) Primary hypertension ([facility]) Unspecified essential hypertension Type 2 diabetes mellitus with complication, with long-term current use of insulin ([facility]) Class 3 severe obesity [...] ([facility]) Non-seasonal allergic rhinitis, unspecified trigger Type 2 diabetes mellitus with unspecified complications Anxiety and depression ([facility]) Gastro-esophageal reflux disease without esophagitis Edema, unspecified Edema Diabetic polyneuropathy associated with type 2 diabetes mellitus ([facility]) Chronic obstructive pulmonary disease, unspecified Pulmonary emphysema, unspecified emphysema type ([facility]) Bilateral lower extremity edema Tobacco user Tobacco use disorder Hyperpigmentation of skin Other dyschromia Primary hypertension ([facility])- Primary Unspecified essential hypertension Diabetic polyneuropathy associated with type 2 diabetes mellitus ([facility]) Pulmonary emphysema, unspecified emphysema type ([facility]) Critical limb ischemia of right lower extremity ([facility]) PAD (peripheral artery disease) ([facility] [place] Unspecified peripheral vascular disease Gastroesophageal reflux disease, unspecified whether esophagitis present Bilateral lower extremity edema Venous ulcer of right leg ([facility]) Type 2 diabetes mellitus with complication, with long-term current use of insulin ([facility] Tobacco user Tobacco use disorder Encounter for smoking cessation counseling Kidney stone Calculus of kidney Adrenal mass 1 cm to 4 cm in diameter ([facility]) Radiculopathy, lumbar region Thoracic or lumbosacral neuritis or radiculitis, unspecified Non-seasonal allergic rhinitis, unspecified trigger Type 2 diabetes mellitus with unspecified complications Anxiety and depression ([facility])- Primary Morbid (severe) obesity due to excess calories ([facility]) Body mass index (BMI) 50.0-59.9, adult ([facility]) Malignant neoplasm of cervix uteri, unspecified Diabetic polyneuropathy associated with type 2 diabetes mellitus ([facility] Chronic diastolic heart failure ([facility]) Chronic diastolic heart failure Primary hypertension ([facility]) Unspecified essential hypertension 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 Gastroesophageal reflux disease, unspecified whether esophagitis present Bilateral lower extremity edema Type 2 diabetes mellitus with complication, with long-term current use of insulin ([facility] Tobacco user Tobacco use disorder Mixed hyperlipidemia ([facility]) Mixed hyperlipidemia Gout, unspecified cause, unspecified chronicity, unspecified site Vitamin deficiency Unspecified vitamin deficiency Gastro-esophageal reflux disease without esophagitis Edema, unspecified Edema Hyperlipidemia, unspecified ([facility] [place] Encounter for smoking cessation counseling Venous ulcer of right leg ([facility]) Antibiotic-induced yeast infection Primary hypertension ([facility])- Primary Unspecified essential hypertension Diabetic polyneuropathy associated with type 2 diabetes mellitus ([facility]) Chronic diastolic heart failure ([facility]) Chronic diastolic heart failure Bilateral lower extremity edema Morbid (severe) obesity due to excess calories ([facility]) Type 2 diabetes mellitus with complication, with long-term current use of insulin ([facility]) Anxiety and depression ([facility]) Cigarette nicotine dependence without complication Encounter for screening mammogram for malignant neoplasm of breast Insomnia Insomnia, unspecified Non-seasonal allergic rhinitis, unspecified trigger Type 2 diabetes mellitus with unspecified complications Vitamin D deficiency, unspecified Gastro-esophageal reflux disease without esophagitis PAD (peripheral artery disease) ([facility]) Unspecified peripheral vascular disease Gastroesophageal reflux disease, unspecified whether esophagitis present Venous ulcer of right leg ([facility]) Cellulitis of left lower extremity- Primary COPD exacerbation ([facility] Obstructive chronic bronchitis with exacerbation Primary hypertension ([facility]) Unspecified essential hypertension Pulmonary hypertension ([facility]) Other chronic pulmonary heart diseases Morbid (severe) obesity due to excess calories ([facility]) Type 2 diabetes mellitus with complication, with long-term current use of insulin ([facility]) Anxiety and depression ([facility]) Fever, unspecified fever cause [...] ([facility]) Obstructive sleep apnea Obstructive sleep apnea (adult) (pediatric) Pulmonary hypertension (HCC) Other chronic pulmonary heart diseases Tobacco user Tobacco use disorder Cardiomegaly Primary hypertension- Primary Unspecified essential hypertension Gastroesophageal reflux disease, unspecified whether esophagitis present Type 2 diabetes mellitus with complication, with long-term current use of insulin ([facility]) Mixed hyperlipidemia Mixed hyperlipidemia Tobacco user [...] 50.0 to 59.9 in adult,unspecified obesity type ([facility] [place] Encounter for subsequent annual wellness visit (AWV) [...] ([facility] Tobacco user Tobacco use [...] ([facility]) PAD (peripheral artery disease) [...] ([facility]) Body mass index (BMI) 50.0-59.9, adult ([facility]) Malignant neoplasm of cervix uteri, unspecified ([facility]) Diabetic polyneuropathy associated with type 2 diabetes mellitus ([facility]) Chronic diastolic heart failure ([facility]) Chronic diastolic heart [...] Morbid (severe) obesity due to excess calories ([facility] [place]) Type 2 diabetes mellitus with complication, with [...] ([facility]) Type 2 diabetes mellitus [...] ([facility]) Type 2 diabetes mellitus with hyperglycemia, with long-term current use of insulin ([facility]) documented in this encounter [facility] HealthcareEvaluation note* Diagnosis Obstructive sleep apnea- [...] ([facility]) Obstructive sleep apnea Obstructive [...] 50.0 to 59.9 in adult,unspecified obesity type ([facility] [place]) Encounter for subsequent annual wellness visit (AWV) [...] ([facility]) Tobacco user Tobacco use [...] mellitus (HCC) Pulmonary emphysema, unspecified emphysema type ([facility]) Critical limb ischemia of right lower extremity ([facility]) PAD (peripheral artery disease) [...] Morbid (severe) obesity due to excess calories ([facility] [place]) Body mass index (BMI) 50.0-59.9, adult ([facility] [place]) Malignant neoplasm of cervix uteri, unspecified ([facility]) Diabetic polyneuropathy associated with type 2 diabetes mellitus ([facility]) Chronic diastolic heart failure ([facility]) Chronic diastolic heart [...] Morbid (severe) obesity due to excess calories ([facility] [place]) Type 2 diabetes mellitus with complication, with [...] Morbid (severe) obesity due to excess calories ([facility] [place]) Type 2 diabetes mellitus with complication, with [...] [facility] Moderate persistent asthma without complication ([facility]) Insomnia Insomnia, unspecified Non-seasonal allergic rhinitis, unspecified trigger Type 2 diabetes mellitus with unspecified complications ([facility]) Anxiety and depression Antibiotic-induced yeast infection Chronic obstructive pulmonary disease, unspecified ([facility]) Hyperlipidemia, unspecified Vaginal yeast infection Candidiasis of vulva and vagina Morbid (severe) obesity due to excess calories ([facility] [place]) Encounter for dietary consultation- Primary Type 2 [...] index (BMI) of50.0 to 59.9 in adult ([facility] [place]) documented in this encounter [facility] HealthcareEvaluation note* Diagnosis Obstructive sleep apnea- Primary Obstructive sleep apnea (adult) (pediatric) Pulmonary emphysema, unspecified emphysema type ([facility]) Primary hypertension Unspecified essential hypertension Type 2 diabetes mellitus with complication, with long-term current use of insulin ([facility]) Anxiety and depression Bilateral lower extremity edema Pulmonary emphysema, unspecified emphysema type (HCC)- Primary Primary hypertension Unspecified essential hypertension Class 3 severe obesity with serious comorbidity and body mass index (BMI) of 50.0 to 59.9 in adult,unspecified obesity type [place] Obstructive sleep apnea Obstructive sleep apnea (adult) [...] 50.0 to 59.9 in adult,unspecified obesity type ([facility] Encounter for subsequent annual wellness visit (AWV) [...] 50.0 to 59.9 in adult,unspecified obesity type ([facility] Tobacco user Tobacco use disorder Other headache [...] ([facility]) PAD (peripheral artery disease) [...] Morbid (severe) obesity due to excess calories ([facility] Body mass index (BMI) 50.0-59.9, adult ([facility] Malignant neoplasm of cervix uteri, unspecified ([facility] [...] Morbid (severe) obesity due to excess calories ([facility] Type 2 diabetes mellitus with complication, with [...] ([facility]) Tobacco user Tobacco use disorder Encounter for smoking cessation counseling documented in this encounter [facility] HealthcareEvaluation noteNo assessment information availableC[facility] Work Phone: History general Narrative - Reported* Type Description Date Medical History diabetes mallitus Medical HistoryCOPDMedical HistoryADRENAL MASS 1 CM TO 4 CM IN DIAMETERMedical HistoryARTHRITISMedical HistoryASTHMAMedical HistoryHEADACHEMedical History HYPERTENSIONMedical HistoryKIDNEY STONESMedical HistoryLEFT FLANK PAINMedical HistoryMIXED INCONTINENCEMedical HistoryPROTEINURIAMedical HistorySMOKERSurgical Poaywrlroistjzpzjte1582Ycvqmuqe Historytoe surgerySurgical HistoryLAPAROSCOPIC CHOLECYSTECTOMYHospitalization Ccjerkmtkhgrl0119Zburazvkncpqpnb HistorySEE ABOVE INWEBTURE Limited Other Hospital course Narrative No data available for this section [facility] progress note No data available for this section [facility] reason for referral (narrative) , Referral to Dr. Cortés Referred by: REGLA PHIPPS, Elbert Joya [facility] reason for referral (narrative)No reason for referral information availableC[facility] Clinic Mercy Hospital Work Phone: Advance Directives No Advanced Directives Records FoundDocuments on File TypeDate RecordedPatient RepresentativeExplanationAdvance Directives and Living WillPower of Ad Trafficker Advance Directive Response Recorded Date/ Time Advance [...] CREATED AUTHOR AUTHOR'S ORGANIZ ATION 09/15/2020 [facility] DATE CREATED AUTHOR AUTHOR'S ORGANIZ ATION 12/19/2022 [facility] DATE CREATED AUTHOR AUTHOR'S ORGANIZ ATION 01/30/2025 [facility] DATE CREATED AUTHOR AUTHOR'S ORGANIZ ATION 04/12/2025 [facility] DATE CREATED AUTHOR AUTHOR'S ORGANIZ ATION 04/29/2025 [facility] DATE CREATED AUTHOR AUTHOR'S ORGANIZ ATION 05/21/2025 [facility] Care Team (unrecognized sect ion and content) Team MemberRelationshipSpecialtyStart DateEnd Date Ty Amin MD PCP - GeneralFamily Medicine01/05/23Team MemberRelationshipSpecialtyStart DateEnd Date Ty Amin MD PCP - GeneralFamily Medicine01/05/23Team MemberRelationshipSpecialtyStart DateEnd Date Ty Amin MD [address] [place] [address] PCP - GeneralFamily Medicine09/20/23 Mckayla Blas NP [address] [place] [address] PCP - / Mckayla Blas NP [address] [place] [address] Nurse PractitionerFamily Medicine09/20/23Team MemberRelationshipSpecialtyStart DateEnd Date Ty Amin MD [address] [place] [address] PCP - [facility]09/20/23 Mckayla Blas NP [address] [place] [address] [facility] Mckayla Blas NP [address] [place] [address] [facility]09/20/23Team MemberRelationshipSpecialtyStart DateEnd Date Ty Amin MD [address] [place] [address] PCP - [facility]09/20/23 Mckayla Blas NP [address] [place] [address] [place] [address]/ Mckayla Blas NP [address] [place] [address] Nurse PractitionerS[facility]09/20/23Team MemberRelationshipSpecialtyStart DateEnd Date Ty Amin MD [address] [place] [address] PCP - [facility]09/20/23 Mckayla Blas NP [address] [place] [address] [facility] Mckayla Blas NP [address] [place] [address] Nurse PractitionerS[facility]09/20/23Team MemberRelationshipSpecialtyStart DateEnd Date Ty Amin MD [address] [place] [address] PCP - [facility]09/20/23 Mckayla Blas NP [address] [place] [address] [facility] Mckayla Blas NP [address] [place] [address] Nurse PractitionerS[facility]09/20/23Team MemberRelationshipSpecialtyStart DateEnd Date Ty Amin MD [address] [place] [address] [facility]/20/23 Mckayla Blas NP [address] [place] [address] [facility] Mckayla Blas NP [address] [place] [address] [facility]Cl[facility] Medicine09/20/23Team MemberRelationshipSpecialtyStart DateEnd Date Ty Amin MD [address] [place] [address] PCP - [facility]09/20/23 Mckayla Blas NP [address] [place] [address] [facility] Mckayla Blas NP [address] [place] [address] Nurse Practition[facility]09/20/23Team MemberRelationshipSpecialtyStart DateEnd Date Ty Amin MD [address] [place] [address] PCP - [facility]09/20/23 Mckayla Blas, SILVANO [address] [place] [address] [place] [address]/ Mckayla Blas NP [address] [place] [address] Nurse PractitionerS[facility]09/20/23Team MemberRelationshipSpecialtyStart DateEnd Date Ty Amin MD [address] [place] [address] PCP - Generalmily Medicine09/20/23 Mckayla Blas NP [address] [place] [address] [place] [address]/ Mckayla Blas NP [address] [place] [address] [facility]09/20/23Team MemberRelationshipSpecialtyStart DateEnd Date Ty Amin MD [address] [place] [address] PCP - [facility]09/20/23 Mckayla Blas NP [address] [place] [address] [place] [address]/ Mckayla Blas NP [address] [place] [address] Nurse Pract[facility]09/20/23Team MemberRelationshipSpecialtyStart DateEnd Date Ty Amin MD [address] [place] [address] PCP - [facility]09/20/23 Mckayla Blas NP [address] [place] [address] [place] [address]/ Mckayla Blas NP [address] [place] [address] Nurse Pract[facility]09/20/23Team MemberRelationshipSpecialtyStart DateEnd Date Ty Amin MD [address] [place] [address] PCP - [facility]09/20/23 Mckayla Blas NP [address] [place] [address] [place] [address] Mckayla Blas NP [address] [place] [address] Nurse PractitionerS[facility]09/20/23Team MemberRelationshipSpecialtyStart DateEnd Date Ty Amin MD [address] [place] [address] PCP - [facility]09/20/23 Mckayla Blas NP [address] [place] [address] [place] [address] Mckayla Blas NP [address] [place] [address] Nurse PractitionerS[facility]09/20/23Team MemberRelationshipSpecialtyStart DateEnd Date Ty Amin MD [address] [place] [address] PCP - [facility]09/20/23 Mckayla Blas NP [address] [place] [address] [place] [address]/ Mckayla Blas NP [address] [place] [address] Nurse PractitionerS[facility]09/20/23Team MemberRelationshipSpecialtyStart DateEnd Date Ty Amin MD [address] [place] [address] PCP - [facility]09/20/23 Mckayla Blas NP [address] [place] [address] [place] [address] Mckayla Blas NP [address] [place] [address] Nurse Pract[facility]Cl[facility] Medicine09/20/23Team MemberRelationshipSpecialtyStart DateEnd Date Ty Amin MD [address] [place] [address] PCP - [facility]09/20/23 Mckayla Blas NP [address] [place] [address] [facility]/ Mckayla Blas NP [address] [place] [address] Nurse PractitionerS[facility]09/20/23Team MemberRelationshipSpecialtyStart DateEnd Date Ty Amin MD [address] [place] [address] PCP - [facility]09/20/23 Mckayla Blas NP [address] [place] [address] [place] [address]/ Mckayla Blas NP [address] [place] [address] Nurse Pract[facility]09/20/23Team MemberRelationshipSpecialtyStart DateEnd Date Ty Amin MD [address] [place] [address] PCP - [facility]09/20/23 Mckayla Blas NP [address] [place] [address] [place] [address]/ Mckayla Blas NP [address] [place] [address] Nurse Pract[facility]Cl[facility] Medicine09/20/23Team MemberRelationshipSpecialtyStart DateEnd Date Ty Amin MD [address] [place] [address] PCP - [facility] Medicine09/20/23 Mckayla Blas, SILVANO [address] [place] [address] [facility]/ Mckayla Blas NP [address] [place] [address] Nurse PractitionerS[facility]09/20/23Te MemberRelationshipSpecialtyStart DateEnd Date Ty Amin MD [address] [place] [address] PCP - [facility]09/20/23 Mckayla Blas NP [address] [place] [address] [facility] Mckayla Blas NP [address] [place] [address] Nurse PractitionerS[facility]09/20/23Te MemberRelationshipSpecialtyStart DateEnd Date Ty Amin MD [address] [place] [address] PCP - GeneralFamily Medicine09/20/23 Mckayla Blas NP [address] [place] [address] [facility] Pract[facility] Medicine09/20/23Team MemberRelationshipSpecialtyStart DateEnd Date Ty Amin MD [address] [place] [address] PCP - Generalmily Medicine09/20/23 Mckayla Blas NP [address] [place] [address] Nurse Pract[facility]Cl[facility] Medicine09/20/23Team MemberRelationshipSpecialtyStart DateEnd Date Ty Amin MD [address] [place] [address] [facility]CP - [facility]Mer[facility]09/20/23 Mckayla Blas NP [address] [place] [address] Nurse Pract[facility]Cl[facility] Medicine09/20/23Team MemberRelationshipSpecialtyStart DateEnd Date Ty Amin MD [address] [place] [address] PCP - Generalm[facility] Medicine09/20/23 Mckayla Blas NP [address] [place] [address] Nurse Pract[facility]erS[facility]09/20/23Team MemberRelationshipSpecialtyStart DateEnd Date Ty Amin MD [address] [place] [address] PCP - [facility]09/20/23 Mckayla Blas NP [address] [place] [address] Nurse PractitionerS[facility]09/20/23 Team Status: Active Member Role Status Dates Mckayla Blas LENDING ACTIVITIES SUPERVISOR-C Primary Care Provider Active Team Status: Active Member Role Status Dates Mckayla Blas , LENDING ACTIVITIES SUPERVISOR-C Primary Care Provider Active Start: March 25, 2025 Price Arora DOAttending ProviderActiveStart: March 25, 2025 Team Status: Active Member Role Status Dates Mckayla Blas LENDING ACTIVITIES SUPERVISOR-C Primary Care Provider Active Start: March 26, 2025 Darerll Wellsending ProviderActiveStart: March 26, 2025 Team Status: Inactive Member Role Status Dates Mckayla Blas LENDING ACTIVITIES SUPERVISOR-C Primary Care Provider Active Start: April 06, 2025 End: April 06, 2025Mckayla Blas LENDING ACTIVITIES SUPERVISOR-CAttending ProviderActiveStart: April 06, 2025 End: April 06, 2025 Team Status: Active Member Role/Relationship Status Dates Mckayla Blas , LENDING ACTIVITIES SUPERVISOR-C Primary Care Provider Active Team Status: Active Member Role/Relationship Status Dates Mckayla Blas , LENDING ACTIVITIES SUPERVISOR-C Primary Care Provider Active Start: March 25, 2025 Price Arora DOAttbrandee ProviderActiveStart: March 25, 2025 Team Status: Active Member Role/Relationship Status Dates Mckayla Blas , LENDING ACTIVITIES SUPERVISOR-C Primary Care Provider Active Start: March 26, 2025 Darrell Wellsending ProviderActiveStart: March 26, 2025 Team Status: Inactive Member Role/Relationship Status Dates Mckayla Blas , LENDING ACTIVITIES SUPERVISOR-C Primary Care Provider Active Start: April 06, 2025 End: April 06, 2025Mckayla Blas NP-CAttending ProviderActiveStart: April 06, 2025 End: April 06, 2025 Team Status: Inactive Member Role/Relationship Status Dates Mckayla Blas NP-C Primary Care Provider Active Start: April 29, 2025 End: April 29, 2025Mckayla Blas NP-Louann ProviderActiveStart: April 29, 2025 End: April 29, 2025Team MemberRelationshipSpecialtyStart DateEnd Date Ty Amin MD PCP - [facility]09/20/23 Mckayla Blas NP [address] [place] [address] [facility]/ Mckayla Blas NP Nurse [facility]09/20/23Team MemberRelationshipSpecialtyStart DateEnd Date Ty Amin MD [facility]CP - [facility] Ty Amin MD PCP - [facility]09/20/23 Mckayla Blas NP [address] [place] [address] PCP [facility]/ Mckayla Blas NP Nurse Pract[facility]erS[facility]09/20/23Team MemberRelationshipSpecialtyStart DateEnd Date Ty Amin MD PCP - [facility]09/20/23 Mckayla Blas NP [address] [place] [address] [facility]CP [facility]//12/31 Mckayla Blas NP Nurse PractitionerSoutheast [facility]09/20/23 REASON FOR VISIT (unrecogniz ed section and [...] BE BASED ON THE PRIMARY CLINICAL RECORDS. [employer] provides no warranty or guarantee of the accuracy or completeness of information in this document.
== END 2025-06-17 10:33 | disposition home or self-care (01) ==
LOC: WC 10:35
PROVIDERS: PCP Nurse Practitioner; Visit Provider Physician Assistant
DX: I87.332 Chronic venous hypertension (idiopathic) with ulcer and inflammation of left lower extremity (principal); L97.822 Non-pressure chronic ulcer of other part of left lower leg with fat layer exposed; I87.311 Chronic venous hypertension (idiopathic) with ulcer of right lower extremity; L97.812 Non-pressure chronic ulcer of other part of right lower leg with fat layer exposed
CPT/HCPCS: 29581

== ENCOUNTER 2025-06-22 14:13 | Outpatient (OUT) | payer MEDICARE, SELFPAY | END 2025-06-22 14:14 | disposition home or self-care (01) | LOC: WC 14:14 | PROVIDERS: PCP Nurse Practitioner; Visit Provider Physician Assistant | DX: I87.332 Chronic venous hypertension (idiopathic) with ulcer and inflammation of left lower extremity (principal); L97.822 Non-pressure chronic ulcer of other part of left lower leg with fat layer exposed; I87.311 Chronic venous hypertension (idiopathic) with ulcer of right lower extremity; L97.812 Non-pressure chronic ulcer of other part of right lower leg with fat layer exposed | CPT/HCPCS: 29581 ==

== ENCOUNTER 2025-06-26 10:47 | Outpatient (OUT) | payer MEDICARE, SELFPAY ==
--- OUTSIDE RECORDS SUMMARY | 2024-12-02 04:30 | XMS_ITS ---
Author Organization The [facility] in [place] Address [address] [place] [address] Care Team Providers Care Electronic Plotting System Operator Name Role Phone Mckayla Blas CNP Primary Care Provider Unavail Armando Carroll Unavailable [phone] REASON FOR VISIT 1YEAR-COPD Encounters Encounter Location Date Provider Diagnosis Pulmonary Medicine [place] [address] [place] [address] 12/02/2024 Armando Yañez Plan Of Treatment No Information Progress Notes * Mitzi MACIAS LDOB:[birth year] (54 yo F)Acc No.[id number]:12/02/2024 UNLOCKED PROGRESS NOTE Follow Up Patient: Mitzi COX :?Armando Yañez, DODOB:1970???Age:54 Y ???Sex:FemaleDate:12/02/2024Phone:[phone]:[address] [place], [place] [address]Pcp:Mckayla Blas CNP Subjective: * Chief Complaints: * 1 . 1YEAR-COPD. * Medical History: Objective: * Vitals: Assessment: Plan: * Treatment: * * Electronic signature of Armando Yañez DO on 06/26/2025 at 10:51 AM ESTSign off status: PendingVisit Status:?N/S N/C (No Show/No Charge) * Provider: Tray Yañez DO Date: 0 12/02/2024 Generated for Printing/Faxing/eTransmitting on:?06/26/2025 10:51 AM EST
--- OUTSIDE RECORDS SUMMARY | 2025-06-26 10:51 | XMS_ITS | Clinical Summary ---
Author Organization [facility] Address [address] [place] [address] Care Team Providers Care Medical Microbiologist Name Role Phone Mckayla Blas MD Primary Care Provider [phone] Allergies No known active allergies Medications MedicationSigDispense [...] INJECT 48 UNITS SUBCUTANEOUSLY TWICE DAILY02/06/2022ctive HYDROcodone-acetaminophen (Steele) 5-325 mg tablet TAKE 1 TABLET BY MOUTH THREE TIMES A DAY NEEDED FOR PAIN MUST LAST 30 DAYS 11/09/2023ctive DULoxetine (Cymbalta) [address] capsule Take 1 tablet by mouth in the morning.Active ergocalciferol (Vitamin D-2) 1.25 MG (56287 Units) capsule Take 1.25 mg by mouth.Active [...] Problems ProblemNoted DateDiagnosed DateCellulitis of left lower fjfqqlnoi02/03/2025Fever 12/09/2024igarette nicotine dependence without lvfjynbqlglx90/21/2025Vitamin D deficiency, wuetfdaktom41/21/2025ntibiotic-induced yeast xlrleuygi70/19/2025 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 08/27/2024Long term current use of inhaled yezorqw8908/27/2024Vitamin deficiency 08/27/2024ad odor of urine08/08/2024hronic diastolic heart epeanhx6808/08/2024 Myelolipoma of adrenal gland07/14/2024ritical limb ischemia of right lower qhsqpdluw57/12/2024Venous ulcer of right leg06/19/2024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 2 diabetes uujzecmu44/05/2024 Overview (08/08/2024): Eye exam 05/13/24 Hyperpigmentation of skin04/14/20245408Cbrteenbi22Headache Left flank painMixed incontinence urrent muqhff36 Overview (11/14/2023): Added secondary to documentation in Social History. Candidiasis of gkvvab94 Overview (11/14/2023): Last Assessment & Plan: Skin care, Non-seasonal allergic oahyegqg47Encounter for screening mammogram for malignant neoplasm of jcpnix31lass 3 severe obesity with serious comorbidity and body mass index (BMI) of 50.0 to 59.9 in adultdrenal mass 1 cm to 4 cm in zlewzpxo94/11/2024 11/14/20239669Eruomhugmus62ervical yhlwlr82 Chronic pain of both kneesecreased functional mobility GERD (gastroesophageal reflux disease) Yogaikidnoyheg32InsomniaKidney stone AD (peripheral artery disease)neumonia adiculopathy, lumbar ernncu13Unilateral primary osteoarthritis, right hipVenous insufficiency Overview (11/14/2023): Last Assessment & Plan: Open [facility] W[facility] Care Vaginal yeast xrutxmabi34nxiety and /02/2024 11/14/2023ilateral lower extremity edema Overview (11/14/2023): Last Assessment & Plan: Continue w pamela, discussed skin care regimines as well Diabetic euezymyymg27Hypertension Overview (11/14/2023): Last Assessment & Plan: No changes today in meds Obstructive sleep apnea Overview (11/14/2023): Last Assessment & Plan: DME needs to send her a new mask for her machine, I have emphasized the importance of getting in touch with them so she can do this Type 2 diabetes mellitus with complication, with long-term current use of sageqfq59 Overview (11/14/2023): Last Assessment & Plan: Continue with [facility] for management RAGHU rjcjfrne32Other chronic painMI 50.0- 59.9, adult05/21/Easy fawlzgzq43losed fracture of upper end of ofqlbwy32/27/bdominal avpjrc73 Bdfvnj86ardiomegaly Overview (11/14/2023): borderline borderline Acute respiratory distress erycnjqo31Gout Resolved Problems ProblemNoted DateDiagnosed DateResolved DatePulmonary /11/2024 [...] (1 standard drink = 0.6 oz pure alcohol)[place] Safety & EnvironmentAnswerDate RecordedFear of Current or Ex-PartnerNot on file08/30/2023Emotionally AbusedNot on file08/30/2023hysically AbusedNot on file08/30/2023Sexually AbusedNot on file08/30/2023hysically or Sexually AbusedNot on file08/30/2023CommentsUnknownSex and Gender InformationValueDate RecordedSex Assigned at BirthNot on fileLegal SexFemale 01/04/2022 10:08 PM EDTGender IdentityNot on fileSexual OrientationNot on file Last Filed Vital Signs Vital SignReadingTime TakenCommentsBlood Ribijzrg624/6407 11:41 AM EDT Nkqbf742501/06/2025 11:41 AM BYZLkufxalgwhg63.7 ??C (98.1 ??F)12/12/2018 2:44 PM EDTRespiratory Rate--Oxygen Infimwtuln41%01/06/2025 11:41 AM EDTInhaled Oxygen Concentration--Sprgns585 kg (376 lb)01/06/2025 11:41 AM SJRXoabyu551.2 cm (5' 7 )01/06/2025 11:41 AM EDTBody Mass Index58.8907 11:41 AM EDT Plan of Treatment Health MaintenanceDue DateLast DoneCommentsCT Idgnbdmaabhk58/17/1971Colonoscopy 1970Colorectal Cancer Fgydxdlbm29/17/1971Diabetes: Hemoglobin A1C 1970FIT-DNA1970FIT1970FOBT1970Medicare Annual Wellness (AWV)1970 9046Jvteypyijuvlm31/17/1971Diabetes: Retinopathy Vffdjcqjo29/17/1981 Depression Pjpwzmtna69/17/1983Diabetes: Urine Protein Onedodlwp70/17/1990 Hepatitis B Vaccines (1 of 3 - 19+ 3-dose series)1989Pap Smear1991 Adult Ibupsas9108/25/1992Cervical Cancer Erroywcdn08/17/2001HPV/Lbylxy7008/25/2000 Gkchzbcfp94/17/2011Pneumococcal Vaccine: Pediatrics (0 to 5 Years) and [...] Mckayla Blas MD [address] [place] [address] PCP - GeneralNurse Practitioner11/13/23
--- OUTSIDE RECORDS SUMMARY | 2025-06-26 10:51 | XMS_ITS | Patient Health Record ---
Author Organization [facility] in [place] Address [address] [place] [address] Care Team Providers Care Physician Gynecologist Name Role Phone Mckayla Blas CNP Primary Care Provider Unavail able Armando Yañez Unavailable [phone] Allergies No Known Allergies Results Component Value Reference Range Notes PROF CHEM 8 (BAS METB) (Not yet reviewed by provider) Interpretation: Performing Lab: Notes/Report: [facility] , Sodium 142 136-145 mmol/L Potassium4.23.5-5.1 mmol/WRcrqwozj80737-587 mmol/LCarbon Djfskns30.521.0-32.0 mmol/LAnion Gap11.6Qcnrxcu73053-665 mg/dLBlood Urea Pvicrifx12.07.0-18.0 mg/dL Creatinine0.820.55-1.02 mg/dLEstimated GFR ( Katty>60>=60 mL/min/1.73m 2Estimated GFR (Non- Kristen>60>=60 mL/min/1.73m 2BUN Creatinine Ratio19.5 Calcium9.08.5-10.1 mg/dLPerforming Lab:see noteML - [facility] LBCBC AUTO DIFF (Not yet reviewed by provider) Interpretation: Performing Lab: Notes/Report: [facility] ,White Blood Count12.84.0-11.0 10 3/uLRed Blood Count5.524.20-5.40 10 6/uL Yeqisryhfv86.112.0-16.0 g/wROgpmywrxbk12.936.0-48.0 %Mean Corpuscular Rjphrm92.2 81.0-99.0 fLMean Corpuscular Ymehuyzdvn94.226.7-34.0 pgMean Corpuscular HGB Conc 31.629.9-35.2 g/dLRed Cell Distribution Width14.611.0-15.0 %Platelet Mizll106 150-450 10 3/uLMean Platelet Uwtkpd29.89.5-13.5 fLNeutrophils Percent Auto67.0 43.0-75.0 %Lymphocytes Percent Auto25.120.5-60.0 %Monocytes Percent Auto5.21.7- 12.0 %Eosinophils Percent Auto1.90.9-7.0 %Basophils Percent Auto0.50.2-2.0 % Immature Granulocytes Pct Auto0.30.0-0.5 %Neutrophils Absolute Auto8.61.4-6.5 10 3/uLLymphocytes Absolute Auto3.21.2-3.8 10 3/uLMonocytes Absolute Auto0.70.3-0.8 10 3/uLEosinophils Absolute Auto0.20.0-0.7 10 3/uLBasophils Absolute Auto0.10.0- 0.1 10 3/uLImmature Granulocytes Abs Auto0.040.00-0.03 10 3/uLPerforming Lab:see noteML - [facility] LB Reason For Referral No Information [...] Duration: 90 DaysActiveVitamin D (Ergocalciferol) 1.25 MG (40822 UT)Oral; Duration: 90 DaysActiveBreztri Aerosphere 160-9-4.8 MCG/ACTInhalation; Duration: 30 DaysActiveSimvastatin 10 MG Oral; Duration: 90 DaysActiveRoflumilast 250 MCGOral; Duration: 28 DaysActive Immunizations Vaccine Route Administration Date Status Comme nts Flu, Fluzone (50140) 6-35mo, multi-dose vial (1829-8584) Unknown 05/18/2023 Administered Pneumococcal (Pneumovax 23)Jjpbqnp6204/16/20170413HnfrdhurocshZRMS-KAF-8 (COVID 19 Pfizer 30mcg/0.3mL)Wfudebo1507/19/2021dministered Social History Tobacco Use: Social History Observation [...] due to ty pe 2 diabetes mellitus (4564902655070) Type 2 diabetes mellitus with foot ulcer (E11.621) ActiveconfirmedProblemMorbid obesity (disorder) (308366782)Morbid (severe) obesity due to excess calories (E66.01)ActiveconfirmedProblemVenous ulcer of lower extremity due to chronic peripheral venous hypertension (244454505175717) Chronic venous hypertension (idiopathic) with ulcer of left lower extremity (I87.312)ActiveconfirmedProblemChronic non-pressure ulcer of calf extending to fat level (89369089572161275)Non-pressure chronic ulcer of other part of right lower leg with fat layer exposed (L97.812)ActiveconfirmedProblemChronic ulcer of skin of lower leg (disorder) (10046264430698462)Non-pressure chronic ulcer of other part of left lower leg limited to breakdown of skin (L97.821)Active confirmedProblemNon-pressure chronic ulcer of other part of left lower leg with fat layer exposed (L97.822)ActiveconfirmedProblemLong-term current use of inhaled steroid (326657215)prison (current) use of inhaled steroids (Z79.51) ActiveconfirmedProblemCOPD - Chronic obstructive pulmonary disease (92798636) COPD (chronic obstructive pulmonary disease) (J44.9)ActiveconfirmedProblem Gastroesophageal reflux disease (850309119)GERD (gastroesophageal reflux disease) (K21.9)ActiveconfirmedProblemHypertension (71556694)HTN (hypertension) (I10)ActiveconfirmedProblemObstructive sleep apnea syndrome (26586405)DANIEL (obstructive sleep apnea) (G47.33)ActiveconfirmedProblemLumbar radiculopathy (265542518)Lumbar radiculopathy (M54.16)ActiveconfirmedProblemDiabetes mellitus type 2 (disorder) (13356321)DM2 (diabetes mellitus, type 2) (E11.9)Active confirmedProblemMental disorder caused by drug (195623032)Cigarette nicotine dependence with nicotine-induced disorder (F17.219)ActiveconfirmedProblem Leukocytosis (133853543)Leukocytosis (D72.829)ActiveconfirmedProblemAcute exacerbation of chronic obstructive airways disease (179782278)COPD with exacerbation (J44.1)ActiveconfirmedProblemLong-term current use of insulin (993790483)Current use of insulin (Z79.4)ActiveconfirmedProblemIdiopathic chronic venous hypertension of both lower extremities with ulcer (I87.313)Active confirmedProblemNon-prs chr ulcer oth prt l low leg limited to brkdwn skin (L97.821)ActiveconfirmedProblemStasis dermatitis co-occurrent with venous ulcer of right lower extremity due to chronic peripheralvenous hypertension (123189084463552)Idiopathic chronic venous hypertension of right lower extremity with ulcer (I87.311)ActiveconfirmedProblemChronic venous hypertension with ulcer and inflammation involving left side (I87.332)ActiveconfirmedProblemAbnormal arterial blood gas (430163687)Elevated carbon dioxide level (R79.81)Active confirmedProblemSkin ulcer of right knee, limited to breakdown of skin (L97.811) ActiveconfirmedProblemDiabetes mellitus (47078826)Diabetes mellitus (E11.9) Activeconfirmed Encounters Encounter Location Date Provider Diagnosis Pulmonary Medicine [place] [address] [place] [address] 12/02/2024 Armando Yañez Plan Of Treatment Pending Test Test Name Order Date CBC AUTO DIFF 08/27/2024 PROF CHEM 8 (BAS METB) 08/27/2024 VC SEGMENTAL PRESSURES 04/24/2024 Insurance Providers Payer Name Payer Address Payer Phone Subscriber Number Group Number Insured Name Patient Relationship to Insured Coverage Start Date Coverage End Date [facility] PR[facility]IC[facility] [address] [place] [address] [id number] Ottoniel Macias - patient is the insured [...] (hyperlipidemia) E78.5 Elevated carbon dioxide level R79.81 prison (current) use of inhaled stero ids Z79.51 Anxiety and depression F41.8 GERD (gastroesophageal reflux disease) K 21.9 Surgical History Surgery Date(Month/Year) hysterectomy cholecystectomytoe surgeryHospitalization History Reason Date(Month/Year) Pneumonia -[facility] 08/31/2023 COPD Exacerbation-[facility] 09/10/2023
--- OUTSIDE RECORDS SUMMARY | 2025-06-26 10:51 | XMS_ITS | Clinical Summary ---
Author Organization [facility] Address [address] [place] [address] Care Team Providers Care Account Services Representative Name Role Phone Ty Amin MD Primary Care Provider [phone] Mckayla Blas NP Unavailable [phone] Allergies No known active allergies Medications [...] (six) hours if needed for wheezingActive HYDROcodone-acetaminophen ([place]) 5-325 MG tablet 1 tablet as needed [...] Administer 4 mg into affected nostril(s) if bbrfqr304Active nicotine (Nicoderm, Step 1) 21 MG/24HR patch [...] DAYS 5Active ergocalciferol (Vitamin D2) 1.25 MG (14841 UT) capsule Indications:Vitamin D deficiency, unspecifiedTake 1 [...] right lower extremity due to peripheral venous hxkggeklaqvl93/03/3977Yxyzz85/03/2025 Assessment & Plan (12/09/2024 7:26 AM EDT): Tylenol prn fever Finish atb's Cellulitis of left lower pdhjsiqez20/03/2025 Assessment & Plan (12/09/2024 11:27 AM EDT): Finish atbs Keep appt with wound care A febrile Will call me if worsening in sxs Cigarette nicotine dependence without lremittuocbs69/21/2025 Assessment & Plan (10/27/2024 2:40 PM EDT): Is currently using chantix, and is doing well, less desire, smoking less Vitamin D deficiency, uyqsjhdumog49/21/2025Gastro-esophageal reflux disease without engnhrhmadq52/21/2025 Assessment & Plan (01/26/2025 7:51 AM EDT): Recommendations: freq small meals, nothing to eat or drink at least 2 hours prior to bed, limit caffeine, alcohol, as well as spicy foods Meds to limit or avoid if possible: NSAIDS Elevate HOB if possible Current meds: ompeprazole Morbid (severe) obesity due to excess gfkalmpp61/19/2025 Assessment & Plan (01/26/2025 6:46 PM EDT): [...] wrapped, 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 as possible jail current use of inhaled dkexxol2608/27/2024Non-pressure chronic ulcer of other part of left lower leg limited to breakdown of skin08/27/2024Vitamin wpihfhxere14/19/2025ntibiotic-induced yeast ekkhypzgs33/19/2025hronic diastolic heart befwafe2608/08/2024 Assessment & Plan (01/26/2025 7:52 AM EDT): [...] counseling 5Critical limb ischemia of right lower vvyfiyxtm27/12/2024 Assessment & Plan (07/14/2024 7:32 PM EST): Saw vascular, does have narrowing in arteries in legs, and thus the wounds not healing At this point they strongly urge to quit smoking or risk limb amputation Cont asa and statin Also good blood pressure and sugar control 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 Does have left OM, will treat for this and if not better can try ubrelvy #3 samples given: Lot [id number], exp 03/2025 Mixed crzeksjfrmvc65/08/4981Huvdtbnnk65/08/2024Encounter for screening mammogram for malignant neoplasm of ybntva9111/01/2023Non-seasonal allergic rhinitis 11/01/2023andidiasis of frcmiu9111/01/2023 Assessment & Plan (11/01/2023 11:21 AM EDT): Skin care, Mrluaizn15/11/2024 Assessment & Plan (01/26/2025 6:44 PM EDT): elavil Radiculopathy, lumbar gzvquy3309/17/2023 Assessment & Plan (07/14/2024 7:36 PM EST): [...] take over prescribing Pancreatitis ([facility])09/17/2023OPD myirpuoezdst29/11/2024 Assessment & Plan (12/09/2024 11:26 AM EDT): [...] non labored and no cyanosis noted Venous gnwzcnnuyjvba73/11/2024 Assessment & Plan (11/01/2023 11:17 AM EDT): Open wounds refer to [facility] Wound Care Pulmonary zphuftfldaor00/11/2024 Assessment & Plan (01/26/2025 7:52 AM EDT): [...] DM control Malignant neoplasm of cervix uteri, eloivwpjsew07/11/2024 Assessment & Plan (08/27/2024 7:33 AM EST): Had in the past, had hysterectomy Hhebkxodsau42/11/2024Unilateral primary osteoarthritis, right hip09/17/2023 Chronic pain of both knees09/17/20238313Ufhixmlfctglca85/11/2024 Assessment & Plan (01/26/2025 7:49 AM EDT): On statin therapy Check labs yearly and prn dose changes Assessment & Plan (08/27/2024 7:36 AM EST): On statin therapy Check labs yearly and prn dose changes Decreased functional cgpavekt93/11/2024drenal mass 1 cm to 4 cm in diameter 09/17/2023 Assessment & Plan (07/14/2024 7:33 PM EST): Continue with Urology Kidney stone09/17/2023 Assessment & Plan (07/14/2024 7:32 PM EST): Continue with Urology Stvpgmzigna28/11/2024Vaginal yeast /09/2024 Assessment & Plan (01/26/2025 6:46 [...] reach out to DME for help Diabetic hrhqqwqgel94/02/2024 Assessment & Plan (01/26/2025 7:53 AM EDT): [...] spiriva Will trial breztri: #2 samples given [id number], exp 03/03, rinse mouth after use Give [...] no changes in inhalers Recommend quitting smoking Mdtdzl0607/10/2023 Assessment & Plan (01/26/2025 6:44 PM EDT): Current meds: albuterol, duoneb, Has general magistrate 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 Assessment & Plan (08/27/2024 7:30 AM EST): Current meds: albuterol, duoneb, Has general magistrate 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 Assessment & Plan (01/17/2024 12:36 PM EDT): Cont w inhalers, pulmonology Quit smoking Oviqsbhpchpq52/02/2024 Assessment & Plan (01/26/2025 7:52 AM EDT): [...] lost script I did contact [facility] [place], they will get another fill on this and have ready for patient Fu in 4 weeks Assessment & Plan (07/10/2023 11:59 AM EST): Stable on current dose of meds Type 2 diabetes mellitus with complication, with long-term current use of ugwicro1407/10/2023 Assessment & Plan (01/26/2025 7:50 AM EDT): [...] odonnell for management of diabetes Anxiety and obtccenvbk57/02/2024 Assessment & Plan (01/26/2025 6:46 PM EDT): [...] discussed skin care regimines as well RAGHU wgsgpcwy80/11/6494Akovoumuycxt45/19/2018 Overview (09/17/2023): borderline Gout10/25/2017 Resolved Problems ProblemNoted [...] left ear without spontaneous rupture of tympanic asldomum88lass 3 severe obesity with serious comorbidity and body mass index (BMI) of 50.0 to 59.9 in adult09/27/2023 04/14/20249941Ibxeyijgu25/11/202404/GERD (gastroesophageal reflux disease) Assessment & Plan (10/27/2024 [...] (BMI) of 60.0 to 69.9 in adult/bdominal ooctbq42 Encounters DateTypeDepartmentCare QmgpHevhfbhwdmx89/20/2025 10:30 AM ESTOffice Visit [facility] [address] [place] [address] Rain Odonnell MD Type 2 diabetes mellitus with hyperglycemia, with long-term current use of insulin (HCC) (Primary Dx); Encounter for dietary consultation; Vitamin D deficiency; Primary hypertension; Insulin long-term use (HCC); Hyperlipemia, mixed; Microalbuminuria; Type 2 diabetes mellitus with other circulatory complications (HCC)05/28/2025 Bamboo flowsheet [facility] [address] [place] [address] Rain Odonnell MD 05/26/2025Telephone [facility] [address] [place] [address] Amber Pinzon LPN SURGERY INSULIN INTAKEfrom Last 3 Months Immunizations ImmunizationAdministration DatesNext DueInfluenza Whole05/02/2013Influenza, N7N6-667064/09/2017,05/10/2016Influenza, Xdhpbjntwzg48/10/2023,04/16/2017, 05/10/2016Influenza, injectable, olzzeixfytah15/10/2023,05/02/2013MMR01/29/1998 Pneumococcal Polysaccharide JWTM8277 Family History Medical HistoryRelationNameCommentsNo Known ProblemsFatherVaricose veinsFather's [...] other written material from your doctor or pharmacy?Ytlvvh7008/26/2024Humiliation, Afraid, Rape, and Kick questionnaireAnswerDate RecordedWithin the [...] week08/26/2024How often do you attend hinduism or caodaism services?More than 4 times per year 08/26/2024Do you belong to any clubs or organizations such as hinduism groups, unions, fraternal or athletic groups, or school groups?No08/26/2024How often do you attend meetings of the clubs or organizations you belong to?Never08/26/2024 Are you , , , , never , or living with a partner?Xmhiefl2908/26/2024UDIT-CAnswerDate RecordedQ1: How often do you have a [...] hard at all08/26/2024PHQ-2AnswerDate RecordedPatient Health Questionnaire-2 Score0 01/26/2025[facility] [place] [facility] Occupational [facility] - Occupational Stress QuestionnaireAnswerDate RecordedDo you feel stress - tense, restless, nervous, or anxious, or unable to sleep at night because yourmind is troubled all the time - these days?Only a sehzyz1908/26/2024Exercise Vital SignAnswerDate Recorded On average, how many [...] steady place to sleep or slept in [place] (including now)?No07/10/2023Housing Stability Vital SignAnswerDate RecordedIn the last 12 months, was there a time when you were not able to pay the mortgage or rent on time?No08/26/2024Number of Times Moved in the Last YearNot on file08/26/2024t any time in the past 12 months, were you homeless or living in a penitentiary (including now)?No08/26/2024 CommentsUnknownSex and Gender InformationValueDate RecordedSex Assigned at BirthNot on fileLegal LiwEicsdk29/15/2023 6:50 PM EDTGender IdentityNot on fileSexual OrientationNot on file Last Filed Vital Signs Vital SignReadingTime TakenCommentsBlood Hognjvwm320/7007 9:48 AM EDT Sbkyb075505/28/2025 10:40 AM JYLDexhhkpchoq12.9 ??C (98.5 ??F)01/26/2025 6:11 PM EDTRespiratory Nadu342107/28/2024 10:40 AM ESTOxygen Xxlalktnei39%05/28/2025 10:40 AM ESTInhaled Oxygen Concentration--Hebfci114 kg (362 lb)05/28/2025 10:40 AM EST Pgwbnc315.2 cm (5' 7 )05/28/2025 10:40 AM ESTBody Mass Index56.7107/28/2024 10:40 AM EST Plan of Treatment DateTypeDepartmentCare Team (Latest Contact Info)Xlyuzpbqqej79/19/2026 10:50 AM EDTOffice Visit [facility] [address] [place] [phone] Rain Odonnell MD [address] [place] [address] Health MaintenanceDue DateLast DoneCommentsCT Qfnsvjoiojqw70/17/1971Colonoscopy 1970FIT1970FOBT1970 1297Ldcpfczcmusis73/17/1971HPV/Dpkcgo3908/25/2000 Pap Smear, 10/08/20159201Iguazuyii89/07/128303/01/2024, 12/14/2023, 3COVID-19 Vaccine ( season)/05/2022, 10/28/2020, 10/08/2020Influenza Vaccine (#1)511/04/2023, 05/18/2023, 04/16/2017, Additional history existsColorectal Cancer Fquvbdpli36/26/2026 FIT-DNA6008/03/2022neumococcal Vaccine: Pediatrics (0 to 5 Years) and At-Risk Patients (6 to 64 Years)Aged Out04/16/2017No longer eligible based on patient's age to complete this topicCervical Cancer ScreeningDiscontinued Procedures Procedure NamePriorityDate/TimeAssociated DiagnosisCommentsPOCT GLYCOSYLATED HEMOGLOBIN (HGB A1C)Woqsubs0505/28/2025 10:46 AM EST Type 2 diabetes mellitus with hyperglycemia, with long-term current use of insulin (HCC) POCT HPZBOUQZjqhkps44/20/2025 10:46 AM EST Type 2 diabetes mellitus [...] / VolumeCollection TimeReceived TimeBloodVenous blood specimen / Uuedebh1305/28/2025 10:46 AM EST Narrative Authorizing ProviderResult TypeResult StatusRain Odonnell MDPOINT OF CARE TEST ENTER/EDIT ORDERABLESFinal Result * POCT glucose manually resulted (05/28/2025 10:46 AM EST)ComponentValueRef RangeTest MethodAnalysis TimePerformed AtPathologist SignatureGlucose Blood, WCQ968rq/dLSpecimen (Source)Anatomical Location / LateralityCollection Method / VolumeCollection TimeReceived TimeBloodCapillary blood specimen / Unknown 05/28/2025 10:46 AM EST Narrative Authorizing ProviderResult TypeResult StatusAhart Odonnell MDPOINT OF CARE TEST ENTER/EDIT ORDERABLESFinal Result * MM TOMOSYNTHESIS SCREENING BI (12/14/2023 11:21 AM EDT)Anatomical Region LateralityModalityOtherSpecimen (Source)Anatomical Location / Laterality Collection Method / VolumeCollection TimeReceived Time12/14/2023 11:21 AM EDT Narrative 12/14/2023 11:22 AM EDT [facility] ?[address] ? [place], [facility] ? Mammography Report ? Signed ? Patient: MITZI MACIAS ?MR#: [id number] ?? : 1970 ?Acct:[id number] ?? Age/Sex: 53 / F ?ADM Date: 12/13/23 ?? Loc: MAMMO ? Attending Dr: Mckayla J Wan RAZOR GRINDER ? Ordering Physician: Mckayla Blas RAZOR GRINDER ?Results: ? Date of Service: 12/13/23 ?Follow Up: ? Procedure(s): MM tomosynthesis screening BI ?? Accession Number(s): [id number] ? cc: Mckayla Blas RAZOR GRINDER ? Patient Name: ? MITZI MACIAS ? MR#: [id number] ? : 1970 ? Exam Date: 12/13/2023 [...] at age ??75. ? LOCATION: ? [facility] ? BREAST COMPOSITION: ? The breasts [...] ?12/14/232 ? DD/ 1121 ? TD/TT: ? Towboat Captain: Procedure Note Radiology, Radiologist, MD - 12/14/2023 [place] [address] Mammography Report Signed Patient: MITZI MACIAS LMR#: [id number] : 1970Acct:[id number] Age/Sex: 53 / FADM Date: 12/13/23 Loc: MAMMO Attending Dr: Mckayla Blas NP Ordering Physician: Mckayla Blasesults: Date of Service: 12/13/23Follow Up: Procedure(s): MM tomosynthesis screening BI Accession Number(s): [id number] cc: Mckayla Blas NP Patient Name: MITZI MACIAS MR#: [id number] : 1970 Exam Date: 12/13/2023 Ordering Doctor: SAYDA Blas THREAD WEAVER RADIOLOGY REPORT PROCEDURE: MM TOMOSYNTHESIS SCREENING BI [...] unknown cancer at age 75. LOCATION: [facility] BREAST COMPOSITION: The breasts are [...] M.D. Signed By:12/14/23 1122 DD/ 1121 TD/TT: Towboat Captain: Authorizing ProviderResult TypeResult StatusLisa Wan NPCLINISYNC IMAGING Final Result from Last 3 Months or Most Recently Relevant to Health Maintenance Insurance Care Teams Team MemberRelationshipSpecialtyStart DateEnd Date Ty Amin MD PCP - GeneralFamily Medicine09/20/23 Mckayla Blas NP Nurse PractitionerFamily Medicine09/20/23
--- OUTSIDE RECORDS SUMMARY | 2025-06-26 10:51 | XMS_ITS | Clinical Summary ---
Author Organization [facility] tem Address [id number] [address] [place] [address] Care Team Providers Care Pearl Hand Name Role Phone Wan Mckayla Rice APRN-CONTROL SYSTEMS DEVELOPER Primary Care Provider Allergies No known [...] mg/0.5 mL pen injector inject one pen uswthu3704/12/2020Active DULoxetine (CYMBALTA) 60 mg capsule Take 1 [...] get venous reflux ultrasound. Other chronic pain1ANA tvetusqx76/11/2021Preop cardiovascular exam 05/28/20205218Oxncbfn01/20/2020 Assessment & Plan (06/19/2024 2:16 PM EST): Counseled on smoking cessation for at least 3 minutes. She is willing to quit. Morbid yltxdxg3205/28/2020BMI 50.0-59.9, adult05/21/2020 Family History Medical HistoryRelationNameCommentsCancerPaternal GrandfatherCancerPaternal GrandmotherHeart diseasePaternal GrandmotherStrokePaternal GrandmotherRelation NameStatusCommentsFatherDeceasedMotherDeceasedPaternal GrandfatherPaternal Grandmother Social History Tobacco UseTypesPacks/DayYears UsedDateSmoking Tobacco: Every DayCigarettes Smokeless Tobacco: NeverAlcohol UseStandard Drinks/WeekCommentsYes0 (1 standard drink = 0.6 oz pure alcohol)RAREChildcareAnswerDate RecordedChildcareUnknown 12/12/2018EmploymentAnswerDate SmusuaqvXdvgednntrEnjckmi76/06/2019Purpose - Life AnswerDate RecordedPurpose and direction in qnppWgnliog34/06/2021 CommentsUnknownSex and Gender InformationValueDate RecordedSex Assigned at Not on fileLegal ZzmMacbiz91/06/2015 11:50 AM EDTGender IdentityNot on file Sexual OrientationNot on file Last Filed Vital Signs Vital SignReadingTime TakenCommentsBlood Nayhmywn267/7006/19/2024 11:26 AM EST Cphza426906/19/2024 11:26 AM EVZKfczgvesnch60.7 ??C (98 ??F)06/19/2024 11:26 AM ESTRespiratory Kwzh134508/20/2023 11:26 AM ESTOxygen Scmpibkhpl07%06/11/2020 9:27 AM ESTInhaled Oxygen Concentration--Yskqaj527.6 kg (374 lb)06/19/2024 11:26 AM UYITesfal959 cm (5' 6.93 )06/19/2024 11:26 AM ESTBody Mass Index58.7108/20/2023 11:26 AM EST Plan of Treatment Health MaintenanceDue DateLast DoneCommentsStatin Use: Lcydkfdaojlsyu76/17/1971 Depression Ulffiojse98/17/1983Tobacco Girajbzev13/17/1983DTaP,Tdap and Td Vaccines (1 - Tdap)1989Pap Smear1991Zoster (Shingles) Vaccine (1 of 2)1COVID-19 Vaccine (4 - 2025-26 season)2022, 10/28/2020, 10/08/2020Influenza Olvpjeo35, 04/16/2017, 05/10/2016, Additional history existsAdult BMI Uavqutnnu51 Medical Devices Not on file Insurance Care Teams Team MemberRelationshipSpecialtyStart DateEnd Date Mckayla Blas, APPLIED BIOLOGY PROFESSOR-CONTROL SYSTEMS DEVELOPER [address] [place] [address] PCP - GeneralNurse Practitioner09/25/18
== END 2025-06-26 10:48 | disposition home or self-care (01) ==
LOC: WC 10:47
PROVIDERS: PCP Nurse Practitioner; Visit Provider Physician Assistant
DX: I87.332 Chronic venous hypertension (idiopathic) with ulcer and inflammation of left lower extremity (principal); L97.822 Non-pressure chronic ulcer of other part of left lower leg with fat layer exposed; I87.311 Chronic venous hypertension (idiopathic) with ulcer of right lower extremity; L97.812 Non-pressure chronic ulcer of other part of right lower leg with fat layer exposed
CPT/HCPCS: 29581

== ENCOUNTER 2025-07-07 10:05 | Outpatient (OUT) | payer MEDICARE, SELFPAY ==
--- OUTSIDE RECORDS SUMMARY | 2024-12-02 04:30 | XMS_ITS ---
Author Organization The [facility] in [place] Address [address] [place] [address] Care Team Providers Care Laboratory Administrative Director Name Role Phone Mckayla Blas CNP Primary Care Provider Unavail Armando Carroll Unavailable [phone] REASON FOR VISIT 1YEAR-COPD Encounters Encounter Location Date Provider Diagnosis Pulmonary Medicine [place] [address] [place] [address] 12/02/2024 Armando Yañez Plan Of Treatment No Information Progress Notes * Mitzi MACIAS LDOB:[birth year] (54 yo F)Acc No.[id number]:12/02/2024 UNLOCKED PROGRESS NOTE Follow Up Patient: Mitzi COX :?Armando Yañez, DODOB:1970???Age:54 Y ???Sex:FemaleDate:12/02/2024Phone:[phone]:[address] [place], [place] [address]Pcp:Mckayla Blas CNP Subjective: * Chief Complaints: * 1 . 1YEAR-COPD. * Medical History: Objective: * Vitals: Assessment: Plan: * Treatment: * * Electronic signature of Armando Yañez DO on 07/07/2025 at 10:08 AM ESTSign off status: PendingVisit Status:?N/S N/C (No Show/No Charge) * Provider: Tray Yañez DO Date: 0 12/02/2024 Generated for Printing/Faxing/eTransmitting on:?07/07/2025 10:08 AM EST
--- OUTSIDE RECORDS SUMMARY | 2025-07-07 10:08 | XMS_ITS | Clinical Summary ---
Author Organization [facility] Address [address] [place] [address] Care Team Providers Care Spa Associate Name Role Phone Mckayla Blas MD Primary Care Provider [phone] Allergies No known active allergies Medications MedicationSigDispense [...] INJECT 48 UNITS SUBCUTANEOUSLY TWICE DAILY02/06/2022ctive HYDROcodone-acetaminophen (Bejou) 5-325 mg tablet TAKE 1 TABLET BY MOUTH THREE TIMES A DAY NEEDED FOR PAIN MUST LAST 30 DAYS 11/09/2023ctive DULoxetine (Cymbalta) [address] capsule Take 1 tablet by mouth in the morning.Active ergocalciferol (Vitamin D-2) 1.25 MG (67923 Units) capsule Take 1.25 mg by mouth.Active [...] Problems ProblemNoted DateDiagnosed DateCellulitis of left lower wcxjghjru97/03/2025Fever 12/09/2024igarette nicotine dependence without hrqsamnponyu90/21/2025Vitamin D deficiency, paydurmztzp42/21/2025ntibiotic-induced yeast utlvudgrw66/19/2025 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 08/27/2024Long term current use of inhaled cmouuzh2208/27/2024Vitamin deficiency 08/27/2024ad odor of urine08/08/2024hronic diastolic heart lcyhzwg5908/08/2024 Myelolipoma of adrenal gland07/14/2024ritical limb ischemia of right lower jrludxuki46/12/2024Venous ulcer of right leg06/19/2024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 2 diabetes okvlcvoa85/05/2024 Overview (08/08/2024): Eye exam 05/13/24 Hyperpigmentation of skin04/14/20246433Zvkzpdcze97Headache Left flank painMixed incontinence urrent wfqsju31 Overview (11/14/2023): Added secondary to documentation in Social History. Candidiasis of Overview (11/14/2023): Last Assessment & Plan: Skin care, Non-seasonal allergic ghyllaaf88Encounter for screening mammogram for malignant neoplasm of rbvxgt41lass 3 severe obesity with serious comorbidity and body mass index (BMI) of 50.0 to 59.9 in adultdrenal mass 1 cm to 4 cm in bnpkgmau98/11/2024 11/14/20234721Qaqqwtsmhwt84ervical iuroio66 Chronic pain of both kneesecreased functional mobility GERD (gastroesophageal reflux disease) Aqqgczvvsxzjji00InsomniaKidney stone AD (peripheral artery disease)neumonia adiculopathy, lumbar qxdakt95Unilateral primary osteoarthritis, right hipVenous insufficiency Overview (11/14/2023): Last Assessment & Plan: Open wounds refer to [facility] Wound Care Vaginal yeast irybhpgbn87nxiety and ecopouqzdm70/02/2024 11/14/2023ilateral lower extremity edema Overview (11/14/2023): Last Assessment & Plan: Continue w pamela, discussed skin care regimines as well Diabetic fjzsnxsqax51Hypertension Overview (11/14/2023): Last Assessment & Plan: No [...] Plan: Continue with Libby for management RAGHU ttesesgg65Other chronic painMI 50.0- 59.9, adult05/21/Easy shhtqhqg75losed fracture of upper end of ziasdno38/27/bdominal Bqvrbi88ardiomegaly Overview (11/14/2023): borderline borderline Acute respiratory distress ektydrew92Gout Resolved Problems ProblemNoted DateDiagnosed DateResolved DatePulmonary gxqukumjdtid91/11/2024 Overview (11/14/2023): Last Assessment & Plan: Needs to wear her PAP I am also going to have her see [facility] Cardiology as well Family History Medical HistoryRelationNameCommentsHeart attackPaternal GrandmotherRelationName StatusCommentsFatherDeceasedMotherDeceasedPaternal Grandmother Social History Tobacco UseTypesPacks/DayYears UsedDateSmoking Tobacco: Every DayCigarettes Smokeless Tobacco: Never Tobacco Cessation:Ready to Q uit: Not Asked; Counseling Given: Not Answered Alcohol UseStandard Drinks/WeekCommentsNot Currently0 (1 standard drink = 0.6 oz pure alcohol)DE Safety & EnvironmentAnswerDate RecordedFear of Current or Ex-PartnerNot on file08/30/2023Emotionally AbusedNot on file08/30/2023hysically AbusedNot on file08/30/2023Sexually AbusedNot on file08/30/2023hysically or Sexually AbusedNot on file08/30/2023CommentsUnknownSex and Gender InformationValueDate RecordedSex Assigned at BirthNot on fileLegal SexFemale 01/04/2022 10:08 PM EDTGender IdentityNot on fileSexual OrientationNot on file Last Filed Vital Signs Vital SignReadingTime TakenCommentsBlood Dpkyqlbn945/6407 11:41 AM EDT Mooip158601/06/2025 11:41 AM BYBYzyqxzasmra34.7 ??C (98.1 ??F)12/12/2018 2:44 PM EDTRespiratory Rate--Oxygen Tnrgwjbtoo45%01/06/2025 11:41 AM EDTInhaled Oxygen Concentration--Eboqfy109 kg (376 lb)01/06/2025 11:41 AM ROCLsmozo399.2 cm (5' 7 )01/06/2025 11:41 AM EDTBody Mass Index58.8907 11:41 AM EDT Plan of Treatment Health MaintenanceDue DateLast DoneCommentsCT Dbxzojpokbkv02/17/1971Colonoscopy 1970Colorectal Cancer Lstwoeibl87/17/1971Diabetes: Hemoglobin A1C 1970FIT-DNA1970FIT1970FOBT1970Medicare Annual Wellness (AWV)1970 2478Eracadmuuouyj52/17/1971Diabetes: Retinopathy Jhawxzdct92/17/1981 Depression Cfmlvyawq26/17/1983Diabetes: Urine Protein Xifrirvtq01/17/1990 Hepatitis B Vaccines (1 of 3 - 19+ 3-dose series)1989Pap Smear1991 Adult Clgmojv8408/25/1992Cervical Cancer Scrjznxsk27/17/2001HPV/Xhsjic0708/25/2000 Lhoeggvrb02/17/2011Pneumococcal Vaccine: Pediatrics (0 to 5 Years) and [...] Mckayla Blas MD [address] [place] [address] PCP - GeneralNurse Practitioner11/13/23
--- OUTSIDE RECORDS SUMMARY | 2025-07-07 10:08 | XMS_ITS | Clinical Summary ---
Author Organization [employer] Address [id number] [address] [place] [address] Care Team Providers Care Children Teacher Name Role Phone Wan Mckayla Rice APRN-COMMUNITY MUSIC THERAPIST Primary Care Provider Allergies No known active [...] mg/0.5 mL pen injector inject one pen bbqnca4704/12/2020Active DULoxetine (CYMBALTA) 60 mg capsule Take 1 [...] get venous reflux ultrasound. Other chronic pain1ANA odabfanz20/11/2021Preop cardiovascular exam 05/28/20204854Ftghgii27/20/2020 Assessment & Plan (06/19/2024 2:16 PM EST): Counseled on smoking cessation for at least 3 minutes. She is willing to quit. Morbid yeufhzk6205/28/2020BMI 50.0-59.9, adult05/21/2020 Family History Medical HistoryRelationNameCommentsCancerPaternal GrandfatherCancerPaternal GrandmotherHeart diseasePaternal GrandmotherStrokePaternal GrandmotherRelation NameStatusCommentsFatherDeceasedMotherDeceasedPaternal GrandfatherPaternal Grandmother Social History Tobacco UseTypesPacks/DayYears UsedDateSmoking Tobacco: Every DayCigarettes Smokeless Tobacco: NeverAlcohol UseStandard Drinks/WeekCommentsYes0 (1 standard drink = 0.6 oz pure alcohol)RAREChildcareAnswerDate RecordedChildcareUnknown 12/12/2018EmploymentAnswerDate NszdxlqxMdckwxmmzmVujnhmm28/06/2019Purpose - Life AnswerDate RecordedPurpose and direction in zibxQxfoxhr19/06/2021 CommentsUnknownSex and Gender InformationValueDate RecordedSex Assigned at Not on fileLegal NfcEralnl77/06/2015 11:50 AM EDTGender IdentityNot on file Sexual OrientationNot on file Last Filed Vital Signs Vital SignReadingTime TakenCommentsBlood Fvhmhipk484/7006/19/2024 11:26 AM EST Jjrte280506/19/2024 11:26 AM CQYUaetsykkcdf77.7 ??C (98 ??F)06/19/2024 11:26 AM ESTRespiratory Yqeo859208/20/2023 11:26 AM ESTOxygen Wvddfvadwu95%06/11/2020 9:27 AM ESTInhaled Oxygen Concentration--Aeztrd363.6 kg (374 lb)06/19/2024 11:26 AM HYGOdqgax638 cm (5' 6.93 )06/19/2024 11:26 AM ESTBody Mass Index58.7108/20/2023 11:26 AM EST Plan of Treatment Health MaintenanceDue DateLast DoneCommentsStatin Use: Cgrqkwcuxfteap10/17/1971 Depression Mcydlajmc74/17/1983Tobacco Gvrdjnlcj52/17/1983DTaP,Tdap and Td Vaccines (1 - Tdap)1989Pap Smear1991Zoster (Shingles) Vaccine (1 of 2)1COVID-19 Vaccine (4 - 2025-26 season)2022, 10/28/2020, 10/08/2020Influenza Zsoisyx30, 04/16/2017, 05/10/2016, Additional history existsAdult BMI Rilrxvgnq90 Medical Devices Not on file Insurance Care Teams Team MemberRelationshipSpecialtyStart DateEnd Date Mckayla Blas, DEVELOPMENT TECHNOLOGIST-COMMUNITY MUSIC THERAPIST [address] [place] [address] PCP - GeneralNurse Practitioner09/25/18
--- OUTSIDE RECORDS SUMMARY | 2025-07-07 10:08 | XMS_ITS | Clinical Summary ---
Author Organization [facility] Address [address] [place] [address] Care Team Providers Care Esl Instructional Assistant Name Role Phone Ty Amin MD Primary Care Provider [phone] Mckayla Blas NP Unavailable [phone] Allergies No known active allergies Medications [...] (six) hours if needed for wheezingActive HYDROcodone-acetaminophen (Steuben) 5-325 MG tablet 1 tablet as needed [...] 2 diabetes mellitus with other circulatory complications ([facility]) USE TO TEST BLOOD SUGAR 4 TIMES DAILY 400 strip 4Active baclofen (Lioresal) 10 MG tablet Take 10 mg by mouth in the morning and 10 mg in the evening and 10 mg before bedtime.4Active naloxone (Narcan) 4 mg/0.1 mL nasal spray Administer 4 mg into affected nostril(s) if pjwqjs364Active nicotine (Nicoderm, Step 1) 21 MG/24HR patch [...] DAYS 5Active ergocalciferol (Vitamin D2) 1.25 MG (27334 UT) capsule Indications:Vitamin D deficiency, unspecifiedTake 1 [...] complication, with long-term current use of insulin ([facility])Chew 1 tablet (81 mg) Daily [...] hyperglycemia, with long-term current use of insulin ([facility])Inject 58 Units under the skin in the morning and 58 Units before bedtime. 104.4 mL 107/877309/6Active insulin glargine (Lantus SoloStar) 100 UNIT/ML pen Indications:Type 2 diabetes mellitus with hyperglycemia, with long-term current use of insulin ([facility])INJECT 58 UNITS SUBCUTANEOUSLY TWICE A DAY 105 mL 5Active varenicline (Chantix) 1 MG tablet Indications:Tobacco user,Encounter for smoking cessation counselingTAKE 1 TABLET BY MOUTH IN THE MORNING AND 1 TABLET BEFORE BEDTIME. TAKE WITH FULL GLASS OF WATER. 60 tablet 5Active Tirzepatide (Mounjaro) 15 MG/0.5ML solution auto-injector Indications:Type 2 diabetes mellitus with other circulatory complications ([facility]) Inject 15 mg under the skin 1 (one) time per week 6 mL 5Active Active Problems ProblemNoted DateDiagnosed DateStasis dermatitis with ulcer of right lower extremity due to peripheral venous dkhfnkaeodfw70/03/1827Vqfhl59/03/2025 Assessment & Plan (12/09/2024 7:26 AM EDT): Tylenol prn fever Finish atb's Cellulitis of left lower clunvdiwg18/03/2025 Assessment & Plan (12/09/2024 11:27 AM EDT): Finish atbs Keep appt with wound care A febrile Will call me if worsening in sxs Cigarette nicotine dependence without omfaumdztznx45/21/2025 Assessment & Plan (10/27/2024 2:40 PM EDT): Is currently using chantix, and is doing well, less desire, smoking less Vitamin D deficiency, ukaddchkhqx91/21/2025Gastro-esophageal reflux disease without sataijcgxaj50/21/2025 Assessment & Plan (01/26/2025 7:51 AM EDT): Recommendations: freq small meals, nothing to eat or drink at least 2 hours prior to bed, limit caffeine, alcohol, as well as spicy foods Meds to limit or avoid if possible: NSAIDS Elevate HOB if possible Current meds: ompeprazole Morbid (severe) obesity due to excess ucagxyrt13/19/2025 Assessment & Plan (01/26/2025 6:46 PM EDT): [...] wrapped, 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 as possible belly packer current use of inhaled enkvxjt4408/27/2024Non-pressure chronic ulcer of other part of left lower leg limited to breakdown of skin08/27/2024Vitamin txfgzjoyuz38/19/2025ntibiotic-induced yeast lngrqvivq48/19/2025hronic diastolic heart iutoozw4508/08/2024 Assessment & Plan (01/26/2025 7:52 AM EDT): [...] counseling 07/14/2024ritical limb ischemia of right lower thgyvabxl47/12/2024 Assessment & Plan (07/14/2024 7:32 PM EST): [...] wellness on a yearly basis Other headache qibewqwm14/11/2024 Assessment & Plan (01/17/2024 12:40 PM EDT): No hx of Migraines, however tylenol/motrin do not help and pt has gotten some relief from Excedrin migraine med Reports some sinus/uri last week. Does have left OM, will treat for this and if not better can try ubrelvy #3 samples given: Lot [id number], exp 03/2025 Mixed xuqyzbxttmtf78/08/4779Vkswfthyb47/08/2024Encounter for screening mammogram for malignant neoplasm of zzoymg4211/01/2023Non-seasonal allergic rhinitis 11/01/2023andidiasis of qdpssg2511/01/2023 Assessment & Plan (11/01/2023 11:21 AM EDT): Skin care, Noigvwdn86/11/2024 Assessment & Plan (01/26/2025 6:44 PM EDT): elavil Radiculopathy, lumbar ahcdge1109/17/2023 Assessment & Plan (07/14/2024 7:36 PM EST): [...] is necessary they take over prescribing Pancreatitis ([facility]-HCC)09/17/2023OPD keqpxxydnwkx95/11/2024 Assessment & Plan (12/09/2024 11:26 AM EDT): [...] non labored and no cyanosis noted Venous cdmzrviujrqzt07/11/2024 Assessment & Plan (11/01/2023 11:17 AM EDT): Open wounds refer to [facility] Wound Care Pulmonary slunhaqjflas00/11/2024 Assessment & Plan (01/26/2025 7:52 AM EDT): Has seen [facility] Cardiology Assessment & Plan (12/09/2024 7:23 AM EDT): Has seen [facility] Cardiology Assessment & Plan (11/15/2023 3:49 PM EDT): Saw [facility] Cardiology See notes Going to see Pulmonary Assessment & Plan (09/27/2023 1:03 PM EDT): Needs to wear her PAP I am also going to have her see [facility] Cardiology as well PAD (peripheral artery disease)09/17/2023 Assessment & Plan (10/27/2024 2:38 PM EDT): Asa, statin Quit smoking BP and DM control Assessment & Plan (07/14/2024 7:32 PM EST): Asa, statin Quit smoking BP and DM control Malignant neoplasm of cervix uteri, zndcfihskik12/11/2024 Assessment & Plan (08/27/2024 7:33 AM EST): Had in the past, had hysterectomy Ijfmsxrwuxe04/11/2024Unilateral primary osteoarthritis, right hip09/17/2023 Chronic pain of both knees09/17/20236813Sbbrmlmvviwblu88/11/2024 Assessment & Plan (01/26/2025 7:49 AM EDT): On statin therapy Check labs yearly and prn dose changes Assessment & Plan (08/27/2024 7:36 AM EST): On statin therapy Check labs yearly and prn dose changes Decreased functional ypdecnfm33/11/2024drenal mass 1 cm to 4 cm in diameter 09/17/2023 Assessment & Plan (07/14/2024 7:33 PM EST): Continue with Urology Kidney stone09/17/2023 Assessment & Plan (07/14/2024 7:32 PM EST): Continue with Urology Mxazqpuimdu57/11/2024Vaginal yeast ifimpsslw19/09/2024 Assessment & Plan (01/26/2025 6:46 PM EDT): [...] reach out to DME for help Diabetic vpuwniqlcx15/02/2024 Assessment & Plan (01/26/2025 7:53 AM EDT): [...] spiriva Will trial breztri: #2 samples given [id number], exp 03/03, rinse mouth after use Give [...] no changes in inhalers Recommend quitting smoking Ldelfw2207/10/2023 Assessment & Plan (01/26/2025 6:44 PM EDT): Current meds: albuterol, duoneb, Has 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 retailer 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 Assessment & Plan (08/27/2024 7:30 AM EST): Current meds: albuterol, duoneb, Has 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 retailer 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 Assessment & Plan (01/17/2024 12:36 PM EDT): Cont w inhalers, pulmonology Quit smoking Jhkhdhiebaso40/02/2024 Assessment & Plan (01/26/2025 7:52 AM EDT): [...] lost script I did contact [facility] in [place], they will get another fill on this and have ready for patient Fu in 4 weeks Assessment & Plan (07/10/2023 11:59 AM EST): Stable on current dose of meds Type 2 diabetes mellitus with complication, with long-term current use of vhkuowu0107/10/2023 Assessment & Plan (01/26/2025 7:50 AM EDT): [...] odonnell for management of diabetes Anxiety and ulsvxumedn88/02/2024 Assessment & Plan (01/26/2025 6:46 PM EDT): [...] discussed skin care regimines as well RAGHU weprtwll26/11/4222Miodahzkipjq29/19/2018 Overview (09/17/2023): borderline Gout10/25/2017 Resolved Problems ProblemNoted [...] left ear without spontaneous rupture of tympanic rmfiyvsb48lass 3 severe obesity with serious comorbidity and body mass index (BMI) of 50.0 to 59.9 in adult09/27/2023 04/14/20243233Oopmfqrft28/11/202404/GERD (gastroesophageal reflux disease) Assessment & Plan (10/27/2024 [...] (BMI) of 60.0 to 69.9 in adult01/bdominal Encounters DateTypeDepartmentCare GnzvFapwidmlmld78/20/2025 10:30 AM ESTOffice Visit [facility] [address] [place] [address] Rain Odonnell MD Type 2 diabetes mellitus with hyperglycemia, with long-term current use of insulin (HCC) (Primary Dx); Encounter for dietary consultation; Vitamin D deficiency; Primary hypertension; Insulin long-term use (HCC); Hyperlipemia, mixed; Microalbuminuria; Type 2 diabetes mellitus with other circulatory complications (HCC)05/28/2025 Bamboo flowsheet [facility] [address] [place] [address] Rain Odonnell MD 05/26/2025Telephone [facility] [address] [place] [address] Amber Pinzon LPN SURGERY INSULIN INTAKEfrom Last 3 Months Immunizations ImmunizationAdministration DatesNext DueInfluenza Whole05/02/2013Influenza, Z4P5-025241/09/2017,05/10/2016Influenza, Xfxoutunglb86/10/2023,04/16/2017, 05/10/2016Influenza, injectable, cpxgkhjqnitz97/10/2023,05/02/2013MMR01/29/1998 Pneumococcal Polysaccharide [id number] Family History Medical HistoryRelationNameCommentsNo Known ProblemsFatherVaricose veinsFather's [...] other written material from your doctor or pharmacy?Znyeqf0008/26/2024Humiliation, Afraid, Rape, and Kick questionnaireAnswerDate RecordedWithin the [...] relatives?Once a week08/26/2024How often do you attend episcopal or voodoo services?More than 4 times per year 08/26/2024Do you belong to any clubs or organizations such as episcopal groups, unions, fraternal or athletic groups, or school groups?No08/26/2024How often do you attend meetings of the clubs or organizations you belong to?Never08/26/2024 Are you , , , , never , or living with a partner?Mkctrpu8208/26/2024UDIT-CAnswerDate RecordedQ1: How often do you have a [...] hard at all08/26/2024PHQ-2AnswerDate RecordedPatient Health Questionnaire-2 Score0 01/26/2025FinSt. [facility] - Occupational Stress QuestionnaireAnswerDate RecordedDo you feel stress - tense, restless, nervous, or anxious, or unable to sleep at night because yourmind is troubled all the time - these days?Only a okclah4708/26/2024Exercise Vital SignAnswerDate Recorded On average, how many [...] steady place to sleep or slept in temeculaelter (including now)?No07/10/2023Housing Stability Vital SignAnswerDate RecordedIn the last 12 months, was there a time when you were not able to pay the mortgage or rent on time?No08/26/2024Number of Times Moved in the Last YearNot on file08/26/2024t any time in the past 12 months, were you homeless or living in a long-term (including now)?No08/26/2024 CommentsUnknownSex and Gender InformationValueDate RecordedSex Assigned at BirthNot on fileLegal HfsXjznbh08/15/2023 6:50 PM EDTGender IdentityNot on fileSexual OrientationNot on file Last Filed Vital Signs Vital SignReadingTime TakenCommentsBlood Lndfuynb074/7007 9:48 AM EDT Whsym088405/28/2025 10:40 AM JGQJtsvikywrus77.9 ??C (98.5 ??F)01/26/2025 6:11 PM EDTRespiratory Cjrv088507/28/2024 10:40 AM ESTOxygen Omyksejedk89%05/28/2025 10:40 AM ESTInhaled Oxygen Concentration--Tatxfq701 kg (362 lb)05/28/2025 10:40 AM EST Eqooah119.2 cm (5' 7 )05/28/2025 10:40 AM ESTBody Mass Index56.7107/28/2024 10:40 AM EST Plan of Treatment DateTypeDepartmentCare Team (Latest Contact Info)Vmdbictycre59/19/2026 10:50 AM EDTOffice Visit [facility] [address] [place] [address] Rain Odonnell MD [address] [place] [address] Health MaintenanceDue DateLast DoneCommentsCT Ilykjoosrisl93/17/1971Colonoscopy 1970FIT1970FOBT1970 4946Wczsyhxqiifrf89/17/1971HPV/Htemwo6108/25/2000 Pap Smear/07/2015, 10/08/20152230Vjmrdmezb01/07/202506/01/2024, 12/14/2023, 11/22/2022Influenza Vaccine (#1), 05/18/2023, 04/16/2017, Additional history existsColorectal Cancer Eymkpqbof25/26/2026 FIT-DNA603Pneumococcal Vaccine: Pediatrics (0 to 5 Years) and At-Risk Patients (6 to 64 Years)Aged Out04/16/2017No longer eligible based on patient's age to complete this topicDiabetes: Hemoglobin V5WQxdqmlcxvmqv 05/28/2025, 01/29/2025, 10/08/2024, Additional history existsCervical Cancer ScreeningDiscontinued Procedures Procedure NamePriorityDate/TimeAssociated DiagnosisCommentsPOCT GLYCOSYLATED HEMOGLOBIN (HGB A1C)Qmhlopu8005/28/2025 10:46 AM EST Type 2 diabetes mellitus with hyperglycemia, with long-term current use of insulin (HCC) POCT ESHELMSQppijwp52/20/2025 10:46 AM EST Type 2 diabetes mellitus [...] / VolumeCollection TimeReceived TimeBloodVenous blood specimen / Yllvswo4505/28/2025 10:46 AM EST Narrative Authorizing ProviderResult TypeResult StatusRain Odonnell MDPOINT OF CARE TEST ENTER/EDIT ORDERABLESFinal Result * POCT glucose manually resulted (05/28/2025 10:46 AM EST)ComponentValueRef RangeTest MethodAnalysis TimePerformed AtPathologist SignatureGlucose Blood, ODG841dl/dLSpecimen (Source)Anatomical Location / LateralityCollection Method / VolumeCollection TimeReceived TimeBloodCapillary blood specimen / Unknown 05/28/2025 10:46 AM EST Narrative Authorizing ProviderResult TypeResult Statusart Odonnell MDPOINT OF CARE TEST ENTER/EDIT ORDERABLESFinal Result * MM TOMOSYNTHESIS SCREENING BI (12/14/2023 11:21 AM EDT)Anatomical Region LateralityModalityOtherSpecimen (Source)Anatomical Location / Laterality Collection Method / VolumeCollection TimeReceived Time12/14/2023 11:21 AM EDT Narrative 12/14/2023 11:22 AM EDT [facility] ?[address] ? [place], [facility] ? Mammography Report ? Signed ? Patient: GILBERTO,MITZI L ?MR#: [id number] ?? : 1970 ?Acct:[id number] ?? Age/Sex: 53 / F ?ADM Date: 12/13/23 ?? Loc: MAMMO ? Attending Dr: Mckayla Blas DIAL MAKER ? Ordering Physician: Mckayla Blas DIAL MAKER ?Results: ? Date of Service: 12/13/23 ?Follow Up: ? Procedure(s): MM tomosynthesis screening BI ?? Accession Number(s): [id number] ? cc: Mckayla Blas DIAL MAKER ? Patient Name: ? MITZI MACIAS ? MR#: [id number] ? : 1970 ? Exam Date: 12/13/2023 [...] ??75. ? LOCATION: ? [facility] ? BREAST COMPOSITION: ? The breasts [...] 1122 ? DD/ 1121 ? TD/TT: ? Animal Shelter Clerk: Procedure Note Radiology, Radiologist, MD - 12/14/2023 [place] [address] Mammography Report Signed Patient: MITZI MACIAS LMR#: [id number] : 1970Acct:[id number] Age/Sex: 53 / FADM Date: 12/13/23 Loc: MAMMO Attending Dr: Mckayla Blas NP Ordering Physician: Mckayla Blas NPResults: Date of Service: 12/13/23Follow Up: Procedure(s): MM tomosynthesis screening BI Accession Number(s): [id number] cc: Mckayla Blas DIAL MAKER Patient Name: MITZI MACIAS MR#: [id number] : 1970 Exam Date: 12/13/2023 Ordering Doctor: SAYDA Blas SHIM [employer] CUTTER RADIOLOGY REPORT PROCEDURE: MM TOMOSYNTHESIS SCREENING BI [...] at age 75. LOCATION: [facility] BREAST COMPOSITION: The breasts are almost [...] Signed By:12/14/23 1122 DD/ 1121 TD/TT: Animal Shelter Clerk: Authorizing ProviderResult TypeResult StatusLisa Wan NPCLINISYNC IMAGING Final Result from Last 3 Months or Most Recently Relevant to Health Maintenance Insurance Care Teams Team MemberRelationshipSpecialtyStart DateEnd Date Ty Amin MD PCP - GeneralFamily Medicine09/20/23 Mckayla Blas NP Nurse PractitionerFamily Medicine09/20/23
--- OUTSIDE RECORDS SUMMARY | 2025-07-07 10:08 | XMS_ITS | Patient Health Record ---
Author Organization [facility] in [place] Address [address] [place] [address] Care Team Providers Care Light Fixture Servicer Name Role Phone Mckayla Blas CNP Primary Care Provider Unavail able Armando Yañez Unavailable [phone] Allergies No Known Allergies Results Component Value Reference Range Notes PROF CHEM 8 (BAS METB) (Not yet reviewed by provider) Interpretation: Performing Lab: Notes/Report: [facility] , Sodium 142 136-145 mmol/L Potassium4.23.5-5.1 mmol/UFmkdyddf79267-512 mmol/LCarbon Dqhqpky84.521.0-32.0 mmol/LAnion Gap11.1Qbkwuod60116-024 mg/dLBlood Urea Rmyxxtpn54.07.0-18.0 mg/dL Creatinine0.820.55-1.02 mg/dLEstimated GFR ( Katty>60>=60 mL/min/1.73m 2Estimated GFR (Non- Kristen>60>=60 mL/min/1.73m 2BUN Creatinine Ratio19.5 Calcium9.08.5-10.1 mg/dLPerforming Lab:see noteML - [facility] LBCBC AUTO DIFF (Not yet reviewed by provider) Interpretation: Performing Lab: Notes/Report: [facility] ,White Blood Count12.84.0-11.0 10 3/uLRed Blood Count5.524.20-5.40 10 6/uL Ririvyorpz79.112.0-16.0 g/qTOvxgqneret59.936.0-48.0 %Mean Corpuscular Vrcneh35.2 81.0-99.0 fLMean Corpuscular Tjxqhqmaiy16.226.7-34.0 pgMean Corpuscular HGB Conc 31.629.9-35.2 g/dLRed Cell Distribution Width14.611.0-15.0 %Platelet Hwldo370 150-450 10 3/uLMean Platelet Ahfppg63.89.5-13.5 fLNeutrophils Percent Auto67.0 43.0-75.0 %Lymphocytes Percent Auto25.120.5-60.0 %Monocytes Percent Auto5.21.7- 12.0 %Eosinophils Percent Auto1.90.9-7.0 %Basophils Percent Auto0.50.2-2.0 % Immature Granulocytes Pct Auto0.30.0-0.5 %Neutrophils Absolute Auto8.61.4-6.5 10 3/uLLymphocytes Absolute Auto3.21.2-3.8 10 3/uLMonocytes Absolute Auto0.70.3-0.8 10 3/uLEosinophils Absolute Auto0.20.0-0.7 10 3/uLBasophils Absolute Auto0.10.0- 0.1 10 3/uLImmature Granulocytes Abs Auto0.040.00-0.03 10 3/uLPerforming Lab:see noteML - [facility] Reason For Referral No Information [...] Duration: 90 DaysActiveVitamin D (Ergocalciferol) 1.25 MG (83344 UT)Oral; Duration: 90 DaysActiveBreztri Aerosphere 160-9-4.8 MCG/ACTInhalation; Duration: 30 DaysActiveSimvastatin 10 MG Oral; Duration: 90 DaysActiveRoflumilast 250 MCGOral; Duration: 28 DaysActive Immunizations Vaccine Route Administration Date Status Comme nts Flu, Fluzone (26022) 6-35mo, multi-dose vial (9132-8863) Unknown 05/18/2023 Administered Pneumococcal (Pneumovax 23)Hvynygx4004/16/20178731ErgpjjflxssmMYWU-AVG-6 (COVID 19 Pfizer 30mcg/0.3mL)Hkkutlm0807/19/2021dministered Social History Tobacco Use: Social History Observation [...] due to ty pe 2 diabetes mellitus (6981137903127) Type 2 diabetes mellitus with foot ulcer (E11.621) ActiveconfirmedProblemMorbid obesity (disorder) (409272651)Morbid (severe) obesity due to excess calories (E66.01)ActiveconfirmedProblemVenous ulcer of lower extremity due to chronic peripheral venous hypertension (047019388028051) Chronic venous hypertension (idiopathic) with ulcer of left lower extremity (I87.312)ActiveconfirmedProblemChronic non-pressure ulcer of calf extending to fat level (25637619316628224)Non-pressure chronic ulcer of other part of right lower leg with fat layer exposed (L97.812)ActiveconfirmedProblemChronic ulcer of skin of lower leg (disorder) (38397855551164212)Non-pressure chronic ulcer of other part of left lower leg limited to breakdown of skin (L97.821)Active confirmedProblemNon-pressure chronic ulcer of other part of left lower leg with fat layer exposed (L97.822)ActiveconfirmedProblemLong-term current use of inhaled steroid (291483984)skilled nursing (current) use of inhaled steroids (Z79.51) ActiveconfirmedProblemCOPD - Chronic obstructive pulmonary disease (96009400) COPD (chronic obstructive pulmonary disease) (J44.9)ActiveconfirmedProblem Gastroesophageal reflux disease (583635528)GERD (gastroesophageal reflux disease) (K21.9)ActiveconfirmedProblemHypertension (26542594)HTN (hypertension) (I10)ActiveconfirmedProblemObstructive sleep apnea syndrome (22594240)DANIEL (obstructive sleep apnea) (G47.33)ActiveconfirmedProblemLumbar radiculopathy (330249280)Lumbar radiculopathy (M54.16)ActiveconfirmedProblemDiabetes mellitus type 2 (disorder) (25041752)DM2 (diabetes mellitus, type 2) (E11.9)Active confirmedProblemMental disorder caused by drug (550522586)Cigarette nicotine dependence with nicotine-induced disorder (F17.219)ActiveconfirmedProblem Leukocytosis (560490254)Leukocytosis (D72.829)ActiveconfirmedProblemAcute exacerbation of chronic obstructive airways disease (725757777)COPD with exacerbation (J44.1)ActiveconfirmedProblemLong-term current use of insulin (701027750)Current use of insulin (Z79.4)ActiveconfirmedProblemIdiopathic chronic venous hypertension of both lower extremities with ulcer (I87.313)Active confirmedProblemNon-prs chr ulcer oth prt l low leg limited to brkdwn skin (L97.821)ActiveconfirmedProblemStasis dermatitis co-occurrent with venous ulcer of right lower extremity due to chronic peripheralvenous hypertension (621603782073931)Idiopathic chronic venous hypertension of right lower extremity with ulcer (I87.311)ActiveconfirmedProblemChronic venous hypertension with ulcer and inflammation involving left side (I87.332)ActiveconfirmedProblemAbnormal arterial blood gas (404171762)Elevated carbon dioxide level (R79.81)Active confirmedProblemSkin ulcer of right knee, limited to breakdown of skin (L97.811) ActiveconfirmedProblemDiabetes mellitus (04772788)Diabetes mellitus (E11.9) Activeconfirmed Encounters Encounter Location Date Provider Diagnosis [facility] [address] [place] [address] 12/02/2024 Armando Yañez Plan Of Treatment Pending Test Test Name Order Date CBC AUTO DIFF 08/27/2024 PROF CHEM 8 (BAS METB) 08/27/2024 VC SEGMENTAL PRESSURES 04/24/2024 Insurance Providers Payer Name Payer Address Payer Phone Subscriber Number Group Number Insured Name Patient Relationship to Insured Coverage Start Date Coverage End Date [facility] [employer] [address] [place] [address] [id number] Ottoniel Macias - patient is the insured [...] (hyperlipidemia) E78.5 Elevated carbon dioxide level R79.81 skilled nursing (current) use of inhaled stero ids Z79.51 Anxiety and depression F41.8 GERD (gastroesophageal reflux disease) K 21.9 Surgical History Surgery Date(Month/Year) toe surgery cholecystectomyhysterectomyHospitalization History Reason Date(Month/Year) Pneumonia -[facility] 08/31/2023 COPD Exacerbation-TB 09/10/2023
--- OUTSIDE RECORDS SUMMARY | 2025-07-07 10:17 | XMS_ITS | CCD ---
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 Name Role Phone James Benavidez Primary Care Provider JAMES BENAVIDEZ Primary Care Unavailable SHENDGE, VITHAL Admitting Unavailable SHENDGE, VITHAL Attending Unavailable AICHHOLZ, MCKAYLA Primary Care Unavailable AICHHOLZ, MCKAYLA Referring Unavailable AICHHOLZ, MCKAYLA J Primary Care Physician [phone] Tico, Stephanie Unavailable OLE RAMIREZ Attending Unavailable OLE RAMIREZ Consulting Unavailable AICHHOLZ, MAT PUNCHER MCKAYLA Primary Care Unavailable OLE RAMIREZ Admitting Unavailable ANTONY SHRESTHA Consulting Unavailable ALONDRA ., JACQUELINE Admitting Unavailable ALONDRA ., JACQUELINE Attending Unavailable AICHHOLZ, MAT PUNCHER MCKAYLA Primary Care Unavailable AFSANEH Loera, DR BOLANOS Consulting Unavailable MARYANNE POWER Consulting Unavailable GLENN KERR Consulting Unavailable YOMAIRA KERR Consulting Unavailable HATTIE GOFF Consulting Unavailable ALONDRA ., JACQUELINE Consulting Unavailable TICO, STEPHANIE Attending Unavailable TICO, STEPHANIE Consulting Unavailable AICHHOLZ, MAT PUNCHER MCKAYLA Primary Care Unavailable TICO, STEPHANIE Admitting Unavailable REGLA ., DR DUMONT Admitting Unavailable AICHHOLZ, MAT PUNCHER MCKAYLA Primary Care Unavailable REGLA ., DR DUMONT Attending Unavailable ARAUZ ., DR DUMONT Consulting Unavailable COLLIN HUERTAS Consulting Unavailable CECILIA KAUFMAN Admitting Unavailable CECILIA KAUFMAN Attending Unavailable AICHHOLZ, MAT PUNCHER MCKAYLA Primary Care Unavailable COMFORT PRETTY Attending Unavailable COMFORT PRETTY Admitting Unavailable AICHHOLZ, MAT PUNCHER MCKAYLA Primary Care Unavailable AICHHOLZ, MAT PUNCHER MCKAYLA Admitting Unavailable AICHHOLZ, MAT PUNCHER MCKAYLA Primary Care Unavailable AICHHOLZ, MAT PUNCHER MCKAYLA Attending Unavailable AICHHOLZ, MAT PUNCHER MCKAYLA Consulting Unavailable LAKSHMIPATHY ., NARENDRANATH Attending Anette vailable LAKSHMIPATHY ., NARENDRANATH Consulting Anette vailable LAKSHMIPATHY ., NARENDRANATH Admitting Anette vailable AICHHOLZ, MAT PUNCHER MCKAYLA Primary Care Unavailable VALENZUELA ., GIL Consulting Unavailable MORTENSEN ., DR CHAPARRO Aguillon Attending Unavailable MORTENSEN ., DR CHAPARRO Aguillon Admitting Unavailable AICHHOLZ, MAT PUNCHER MCKAYLA Primary Care Unavailable VALENZUELA ., GIL Consulting Unavailable MORTENSEN ., DR CHAPARRO Aguillon Admitting Unavailable AICHHOLZ, MAT PUNCHER MCKAYLA Primary Care Unavailable MORTENSEN ., DR CHAPARRO Aguillon Attending Unavailable HALKER ., SUBHASH Consulting Unavailable LAKSHMIPATHY ., NARENDRANATH Admitting Anette vailable LAKSHMIPATHY ., NARENDRANATH Attending Anette vailable AICHHOLZ, MAT PUNCHER MCKAYLA Primary Care Unavailable MORTENSEN ., DR CHAPARRO Aguillon Attending Unavailable MORTENSEN ., DR CHAPARRO Aguillon Admitting Unavailable VALENZUELA ., GIL Consulting Unavailable AICHHOLZ, MAT PUNCHER MCKAYLA Primary Care Unavailable VALENZUELA ., GIL Consulting Unavailable MORTENSEN ., DR CHAPARRO Aguillon Attending Unavailable MORTENSEN ., DR CHAPARRO Aguillon Admitting Unavailable AICHHOLZ, MAT PUNCHER MCKAYLA Primary Care Unavailable HATTIE BRODERICK Attending Unavailable HATTIE BRODERICK Admitting Unavailable AICHHOLZ, MAT PUNCHER MCKAYLA Primary Care Unavailable AICHHOLZ, MAT PUNCHER MCKAYLA Admitting Unavailable AICHHOLZ, MAT PUNCHER MCKAYLA Consulting Unavailable AICHHOLZ, MAT PUNCHER MCKAYLA Primary Care Unavailable AICHHOLZ, MAT PUNCHER MCKAYLA Attending Unavailable AICHHOLZ, MAT PUNCHER MCKAYLA Primary Care Unavailable MISC, DR LESLIE Admitting Unavailable MISC, DR LESLIE Attending Unavailable MISC, DR LESLIE Consulting Unavailable DIAB ., MARIANO Admitting Unavailable DIAB ., MARIANO Attending Unavailable DIAB ., MARIANO Consulting Unavailable AICHHOLZ, MAT PUNCHER MCKAYLA Primary Care Unavailable RASTEGAR, RICCO Consulting Unavailable AICHHOLZ, MAT PUNCHER MCKAYLA Admitting Unavailable AICHHOLZ, MAT PUNCHER MCKAYLA Primary Care Unavailable AICHHOLZ, MAT PUNCHER MCKAYLA Attending Unavailable AICHHOLZ, MAT PUNCHER MCKAYLA Consulting Unavailable DR PATRICIA VELOZ Consulting Unavailable TAMLYN ., CECILIA Attending Unavailable TAMLYN ., CECILIA Admitting Unavailable DR PATRICIA VELOZ Consulting Unavailable AICHHOLZ, MAT PUNCHER MCKAYLA Primary Care Unavailable TAMLYN ., CECILIA Consulting Unavailable MORTENSEN ., DR CHAPARRO Aguillon Attending Unavailable FESTUS ., DR CHAPARRO Aguillon Consulting Unavailable FESTUS ., DR CHAPARRO Aguillon Admitting Unavailable AICHHOLZ, MAT PUNCHER MCKAYLA Primary Care Unavailable HATTIE BRODERICK Attending Unavailable HATTIE BRODERICK Consulting Unavailable HATTIE BRODERICK Admitting Unavailable AICHHOLZ, MAT PUNCHER MCKAYLA Primary Care Unavailable HATTIE BAUTISTA Unavailable AICHHOLZ, MAT PUNCHER MCKAYLA Admitting Unavailable AICHHOLZ, MAT PUNCHER MCKAYLA Attending Unavailable AICHHOLZ, MAT PUNCHER MCKAYLA Consulting Unavailable AICHHOLZ, MAT PUNCHER MCKAYLA Primary Care Unavailable Ty Amin MD Primary Care Provider Ty Amin MD Primary Care Provider [phone] Aichholz BUTT SAWYER, Mckayla Unavailable Aichholz BUTT SAWYER, Mckayla Unavailable AICHHOLZ, MCKAYLA Attending Unavailable LIBBY, AHMAD F Attending Unavailable AICHHOLZ, MCKAYLA Attending Unavailable AICHHOLZ, MCKAYLA Attending Unavailable AICHHOLZ, MCKAYLA Attending Unavailable LIBBY, AHMAD F Attending Unavailable AICHHOLZ, MCKAYLA Attending Unavailable LIBBY, AHMAD F Attending Unavailable LIBBY, AHMAD F Referring Unavailable AICHHOLZ, MCKAYLA Attending Unavailable Aichholz BUTT SAWYER, Mckayla Unavailable Aichholz BUTT SAWYER-C, Mckayla J Primary Care Provider [phone] Price Arora DO Attending Provider [phone] Flynn Urias DPM Attending Provider Aichholz BUTT SAWYER-C, Mckayla J Attending Provider [phone] AMI ORO Attending Unavailable DAKOTAH BRIDGES Attending Unavailable Elbert ARAUZ Attending Unavailable GAVIOTA ADAMES Attending Unavailable Ty Amin MD Primary Care Provider Aichholz BUTT SAWYER, Mckayla Unavailable Aichholz BUTT SAWYER, Mckayla Unavailable Ty Amin MD Primary Care Provider Bob BAR HOST-MAT PUNCHER, Omero Lovell Attending Unav ailable Aichholz BAR HOST-MAT PUNCHER, Mckayla Lennon Primary Care Unava ilable Adonay DPM, Flynn Arzate Attending Unavailab le Adonay DPM, Flynn Arzate Attending Unavailab le Aichholz BAR HOST-MAT PUNCHER, Mckyala Lennon Primary Care Unava ilable Adonay DPM, Flynn Arzate Attending Unavailab le Adonay DPM, Flynn Arzate Attending Unavailab le Aichholz BAR HOST-MAT PUNCHER, Mckayla Lennon Primary Care Unava ilable Aichholz BAR HOST-MAT PUNCHER, Mckayla eLnnon Primary Care Unava ilable Adonay DPM, Flynn Arzate Attending Unavailab le Aichholz BAR HOST-MAT PUNCHER, Mckayla Lennon Primary Care Unava ilable Bob BAR HOST-MAT PUNCHER, Omero Lovell Attending Unav ailable Aichholz BAR HOST-MAT PUNCHER, Mckayla Lennon Primary Care Unava ilable Adonay DPM, Flynn Arzate Attending Unavailab le Adonay DPM, Flynn Arzate Attending Unavailab le Bob BAR HOST-MAT PUNCHER, Omero Lovell Consulting Unav ailable Aichholz BAR HOST-MAT PUNCHER, Mckayla Lennon Primary Care Unava ilable Corinne Kellogg MD Attending Unavail able Bob BAR HOST-MAT PUNCHER, Omero Lovell Attending Unav ailable Adonay DPM, Flynn Arzate Referring Unavailab le Allergies Allergy ClassificationReported Allergen(s)Allergy TypeDate of OnsetReaction(s) Facility (1 source)No Known Medication Allergies; Translations: [No Known Medication Allergies]Propensity to adverse reactions (disorder)[facility] Medications Current Medications MedicationDrug Class(es)DatesSig (Normalized)Sig (Original)0.5 ML tirzepatide 30 MG/ML Auto-Injector [Mounjaro] (1 source)Start: 45-62-4296hqswnu 15 mg by subcutaneous injection every week Mounjaro 15 mg/0.5 mL subcutaneous solution INJECT 15MG SUBCUTANEOUSLY ONCE A WEEK Start Date: 06/11/24 Status: Orderedacetaminophen 325 mg / HYDROcodone bitartrate 5 mg oral tablet (20 sources)Opioid AgonistStart: 19-66-7842slajturwnwkmz-hydrocodone 325 mg-5 mg oral tablet Refill(s) 0 Start Date: 02/06/22 Status: OrderedStart: 12-13-2017 End: 87-45-1504rinl 1 tablet by mouth every four hoursHydrocodone-Acetaminophen ([place]) 5-325 mg tablet Discontinued 1 TAB PO Q4H 15 0 December 13, 2017 April 05, 2025 12:52pm Fracture of humerus painStart: 22-06-2586ldmq 1 tablet by mouth every four to six hours as needed for painHYDROcodone-acetaminophen ([place]) 5-325 MG tablet 1 tablet 3 (three) times a day as needed for severe pain. Activetake 1 tablet by mouth twice daily as neededNorco 5-325 MG 1 tablet as needed Orally TWICE A DAY Activealbuterol 0.83 mg/ml inhalation solution (20 sources)beta2-Adrenergic AgonistStart: 41-50-0332wwnz 2.5 mg by inhalation every four to six hours as neededStart: 90-85-6812izckqopsb 0.083% Inh Tracey 3 mL Refill(s) 0 [...] oral tablet (20 sources)Tricyclic AntidepressantStart: 02-06-2022 End: 62-54-3544mcia 1 tablet by mouth once daily at bedtimeaspirin 81 mg chewable tablet (20 sources)Platelet Aggregation Inhibitor, Nonsteroidal Anti-inflammatory Drug Start: 11-01-2023 End: 32-27-8963sedd 1 tablet by mouth once dailyaspirin 81 MG chewable tablet Chew 81 mg in the morning. 0 Activebaclofen 10 mg oral tablet (20 sources)gamma-Aminobutyric Acid-ergic AgonistStart: 34-64-2359gynw 1 tablet by mouth every eight hours as neededStart: 93-83-4919iicd 1 tablet by mouth in the morning, then take 1 tablet by mouth in the evening, then take 1 tablet by mouth at bedtimebaclofen (Lioresal) 10 MG tablet Take 10 mg by mouth in the morning and 10 mg in the evening and 10mg before bedtime. 06/24/2024 Oeujdf76 actuat budesonide 0.16 mg/actuat / formoterol fumarate [...] tablet (20 sources)Histamine-1 Receptor AntagonistStart: 11-01-2023 End: 68-78-4200bqvx 1 tablet by mouth once daily as neededtake 1 tablet by mouth in the morningcetirizine (ZyrTEC) 10 MG tablet Take 10 mg by mouth in the morning. 0 Activedapagliflozin 10 mg oral tablet (20 sources)Sodium-Glucose Cotransporter 2 InhibitorStart: 01-17-2024 End: 05-95-1904bxvv 1 tablet by mouth once dailyStart: 08-14-2023 End: 12-26-9908xixd 1 tablet by mouth in the morningdapagliflozin (Farxiga) 10 MG Indications: Type 2 diabetes mellitus with unspecified complications ( CMS/HCC) Take 1 tablet (10 mg) by mouth in the morning. 90 tablet 1 08/14/2023 11/12/2023 Activediclofenac sodium 75 mg delayed release oral tablet (20 sources)Nonsteroidal Anti-inflammatory DrugStart: 42-01-9290vgdx 1 tablet by mouth twice daily0.5 ML dulaglutide 9 MG/ML Auto-Injector [Trulicity] (4 sources)GLP-1 Receptor AgonistStart: 80-83-7224Zfipddcwv Pen 4.5 mg/0.5 mL subcutaneous solution Refills(s) [...] sources)Serotonin and Norepinephrine Reuptake InhibitorStart: 11-01-2023 End: 01-73-5212gtrh 1 capsule by mouth twice dailyStart: 07-23-2023 End: 75-04-7390joex 1 capsule by mouth in the morningDULoxetine (Cymbalta) [address] capsule Indications: Anxiety and depression (CMS/HCC) Take 1 capsule(60 mg) by mouth in the morning and 1 capsule (60 mg) before bedtime. Do not crush or chew.. 60 capsule 3 07/23/2023 08/22/2023 ActiveStart: 81-88-1749RAHpohmjtm 30 mg Cap-EC Refills(s) 0 Start Date: 02/06/22 Status: OrderedDULoxetine 30 mg Cap-EC (2 sources)Start: 20-33-5276ZYDafyprhj 30 mg Cap-EC Refills(s) 0 Start Date: 02/06/22 Status: Orderedergocalciferol 1.25 mg oral capsule (20 sources)Provitamin D2 CompoundStart: 27-25-1734Tqruc: 01-16-2025 End: 07-51-5542ncje 1 capsule by mouth every weekergocalciferol (Vitamin D2) 1.25 MG (80102 UT) capsule Indications: Vitamin D deficiency, unspecified Take 1 capsule (1.25 mg) by mouth 1 (one) time per week 12 capsule 1 01/16/2025 04/10/2025 ActiveStart: 10-27-2024 End: 48-72-5410yzdf 1 capsule by mouth two times weeklyergocalciferol (Vitamin D2) 1.25 MG (22646 UT) capsule Indications: Vitamin D deficiency, unspecified Take 1 capsule (1.25 mg) by mouth 2 (two) times a week 24 capsule 1 10/27/2024 01/19/2025 ActiveStart: 04-06-2024 End: 86-33-6763splm 1 capsule by mouth every weekergocalciferol (Vitamin D2) 1.25 MG (22952 UT) capsule Indications: Vitamin D deficiency, unspecified TAKE 1 CAPSULE BY MOUTH ONE TIME PER WEEK 12 capsule 1 04/06/2024 10/27/2024 Discontinued (Reorder)fluconazole 150 mg oral tablet (20 sources)Azole AntifungalStart: 08-27-2024 End: 60-17-6445uvauqomxxiz (Diflucan) 150 MG tablet Indications: Antibiotic- induced yeast infection One time dose,repeat in 3 days . Do not take cholesterol pill while taking this medication. Once finished then resume 2 tablet 1 01/26/2025 ActiveStart: 08-17-2023 End: 04-84-6568nonljapkfxk (Diflucan) 150 MG tablet Indications: Vaginal yeast infection Take 1 tablet (150 mg) bymouth in the morning for 2 days. One time dose, may repeat in 3 days. 2 tablet 1 08/17/2023 08/19/2023 Active End: 50-06-3316vvgxjguxvpj (Diflucan) 150 MG tablet Take 200 mg by mouth in the morning. 0 08/17/2023 Discontinued(Reorder)furosemide 20 mg oral tablet (20 sources)Loop DiureticStart: 09-22-2024 End: 45-13-4560fcpw 1 tablet by mouth once dailyStart: 04-06-2024 End: 70-36-0567eqkl 1 tablet by mouth once dailyfurosemide (Lasix) 40 MG tablet Indications: Bilateral lower extremity edema Take 1 tablet (40 mg) by mouth Daily 90 tablet 1 04/06/2024 ActiveStart: 12-13-2017 End: 56-87-1942dsgr 1 tablet by mouth once daily as [...] oral tablet (20 sources)Arteriolar VasodilatorStart: 09-13-2023 End: 08-87-5836iynf 1 tablet by mouth twice dailysodium hypochlorite 2.5 mg/ml topical solution (14 sources)Start: 41-93-6391ZrBjnh 0.25 % external solution APPLY TO GAUZE [...] with supper. 0 ActiveNovoLog (5 sources)Insulin AnalogStart: 80-06-5045AkvfOec SubCutaneous, TIDAC, Refills(s) 0 Start Date: 02/06/22 Status: OrderedNovoLOG 100 UNIT/ML as directed Injection SLIDING SCALE BEFORE EACH MEAL Active3 ml insulin glargine 100 unt/ml pen injector (20 sources)Insulin AnalogStart: 60-41-4275Grucu: 76-99-5188wmbnfdp glargine (Lantus SoloStar) 100 UNIT/ML pen Indications: Type 2 diabetes mellitus with hyperglycemia, with long-term current use of insulin (HCC) INJECT 58 UNITS SUBCUTANEOUSLY TWICE A DAY 105mL 2 02/16/2025 ActiveStart: 01-29-2025 End: 56-95-0354ealxoe 58 [IU] by subcutaneous injection in the morninginsulin glargine (Lantus) 100 UNIT/ML injection Indications: Type 2 diabetes mellitus with hyperglycemia, with long-term current use of insulin (HCC) Inject 58 Units under the skin in the morning and58 Units before bedtime. 104.4 mL 1 01/29/2025 07/28/2025 ActiveStart: 84-48-1923Mkslsy SoloStar 100 UNIT/ML pen 08/26/2024 ActiveStart: 10-30-2023 End: 24-85-2626Wqwvpq SoloStar 100 UNIT/ML pen 10/30/2023 04/14/2024 Discontinued (Therapy completed)Start: 55-34-1512Osuigi Solostar Pen 100 units/mL subcutaneous solution Refills(s) 0 Start Date: 02/06/22 Status: Ordered Start: 12-13-2017 End: 38-53-7372cybbxi 50 [IU] by subcutaneous injection twice dailyInsulin Glargine (Lantus U-100 Insulin) 100 unit/mL Solution Discontinued 50 UNIT SUBCUT Twice daily December 13, 2017 12:00am April 05, 2025 12:53pmLantus SoloStar 100 UNIT/ML as directed Subcutaneous 58 UNITS ONCE A DAY Active3 ml insulin lispro 100 unt/ml pen injector (20 sources)Insulin AnalogStart: 10-06-2023 End: 98-20-4819TkfnCHD KWIKPEN 100 UNIT/ML injection Inject under the skin 10/06/2023 04/14/2024 Discontinued (Therapy completed)Start: 41-99-5731lfmqrq 1 [IU] by subcutaneous injection before mealtimeInsulin [...] lactate 120 mg/ml topical lotion (20 sources)Start: 87-78-0434Exjxc: 21-14-7137qwyjwybo lactate (Lac-Hydrin) 12 % lotion 07/22/2024 ActiveStart: 41-62-7178ittaruex lactate (Lac-Hydrin) 12 % lotion APPLY TO BILATERAL FEET EVERY DAY 07/22/2024 Activelisinopril 20 mg oral tablet (20 sources)Angiotensin Converting Enzyme InhibitorStart: 02-06-2022 End: 48-66-0435iptv 1 tablet by mouth once dailymeloxicam (5 sources)Nonsteroidal Anti-inflammatory DrugStart: 58-01-7151cqxdhdvvh Daily, Refills(s) 0 Start Date: 02/06/22 Status: Orderedtake 1 tablet by mouth every twenty-four hoursMeloxicam 7.5 MG 1 tablet Orally Once a day ActivemetFORMIN hydrochloride 1000 mg oral tablet (1 source)Biguanidetake 1 tablet by mouth twice daily at mealtimemetFORMIN (GLUCOPHAGE) 1000 MG tablet Take 1,000 mg by mouth 2 times daily (with meals). 0 ActiveMounjaro 10 MG/0.5ML solution pen-injector (4 sources)Start: 10-22-2023 End: 66-59-5164drxhgx 10 mg by subcutaneous injection every weekMounjaro 10 MG/0.5ML solution pen-injector INJECT 10MG SUBCUTANEOUSLY ONCE A WEEK 10/22/2023 04/14/2024 Discontinued (Therapy completed)Start: 41-10-2013zntina 10 mg by subcutaneous injection every weekMounjaro 10 MG/0.5ML solution pen-injector INJECT 10MG SUBCUTANEOUSLY ONCE A WEEK 10/22/2023 ActiveMounjaro 15 MG/0.5ML solution auto-injector (8 sources)Start: 16-22-7356Bmxqyglb 15 MG/0.5ML solution auto-injector Inject 15 mg as directed every 7 (seven) days 02/18/2024 Activenaloxone hydrochloride 40 mg/ml nasal spray (20 sources)Opioid AntagonistStart: 66-79-2624Phjzn: 89-83-0419lbnobvvc (Narcan) 4 mg/0.1 mL nasal spray Administer 4 mg into affected nostril(s) if needed 07/04/2024 Icejxt30 hr nicotine 0.875 mg/hr transdermal system (20 sources)Cholinergic Nicotinic AgonistStart: 07-14-2024 End: 76-61-8647rgvtxczd (Nicoderm, Step 1) 21 MG/24HR patch Indications: [...] capsule (20 sources)Proton Pump InhibitorStart: 12-25-2023 End: 64-15-0215huav 1 capsule by mouth once dailytake 1 capsule by mouth before mealtimeomeprazole (PriLOSEC) [address] capsule Take 20 mg by mouth in the morning. Take before meals. Do not crush or chew. . 0 ActiveOxygen (20 sources)oxygen (O2) gas Inhale 2 L/min continuously via nasal canula Active potassium chloride 10 meq extended release oral tablet (20 sources)Start: 40-31-4521Izmhj: 02-06-2022 End: 76-94-4583ewmm 1 capsule by mouth once daily in the morningpotassium chloride ER (Micro-K) 10 MEQ ER capsule Indications: Bilateral lower extremity edema Take1 capsule (10 mEq) by mouth Daily Take 1 capsule (10 mEq) by mouth in the morning. 90 capsule 1 01/26/2025 04/26/2025 ActiveStart: 12-13-2017 End: 05-86-1745Cfbjctxkl Chloride (Klor-Con 10) 10 mEq Tablet Extended Release Discontinued 10 MEQ PO Twice daily December 13, 2017 12:00am April 05, 2025 12:56pmtake 1 tablet by mouth every twenty-four hoursPotassium Chloride ER 10 MEQ 1 tablet with food Orally Once a day ActivepredniSONE 10 mg oral tablet (11 sources)Start: 56-43-4788xxpqyiGFTD (Deltasone) 10 MG tablet 4 TABS X3 DAYS, 3TABS X3 DAYS, 2 TABS X3 DAYS, 1 TAB X3 DAYS, 1/2 TAB X4 DAYS 12/05/2024 Active pregabalin 150 mg oral capsule (20 sources)Start: 06-77-9192ytkl 1 capsule by mouth once dailyStart: 08-13-2024 take 1 capsule by mouth once dailypregabalin (Lyrica) 150 MG capsule Take 150 mg by mouth Daily 08/13/2024 ActiveStart: 01-51-5050Yeapeh Oral, Refills(s) 0 Start Date: 02/06/22 Status: OrderedStart: 12-13-2017 End: 43-56-3721dami 1 capsule by mouth in the morningpregabalin (Lyrica) 300 MG capsule Indications: Diabetic polyneuropathy associated with type 2 diabetes mellitus (HCC) Take 1 capsule (300 mg) by mouth in the morning and 1 capsule (300 mg) before bedtime. 60 capsule 5 04/14/2024 Activeroflumilast 0.5 mg oral tablet (20 sources)Phosphodiesterase 4 InhibitorStart: 01-04-2024 End: 70-58-2416jkfp 1 tablet by mouth once dailysimvastatin 10 mg oral tablet (20 sources)HMG-CoA Reductase InhibitorStart: 12-19-2024 End: 65-30-2700deob 1 tablet by mouth once daily at bedtimeStart: 04-06-2024 End: 20-19-2409kctx 1 tablet by mouth at bedtimesimvastatin (Zocor) 10 MG tablet Indications: Hyperlipidemia, unspecified (CMS/HCC) Take 1 tablet (10 mg) by mouth at bedtime 90 tablet 1 08/27/2024 ActiveStart: 06-15-2023 End: 10-54-7452tpnr 1 tablet by mouth in the morningsimvastatin (Zocor) 10 MG tablet Indications: Hyperlipidemia, unspecified (CMS/HCC) Take 1 tablet (10 mg) by mouth in the morning. 90 tablet 1 06/15/2023 09/13/2023 ActiveStart: 12-13-2017 End: 23-93-7087zjit 1 tablet by mouth once daily in the eveningSimvastatin 20 mg Tablet Discontinued 20 MG PO Every evening December 13, 2017 12:00am March 1:00pmsulfamethoxazole 800 mg / trimethoprim 160 mg oral tablet (15 sources)Dihydrofolate Reductase Inhibitor Antibacterial, Sulfonamide AntimicrobialStart: 08-11-7127dmhi 1 tablet by mouth twice daily sulfamethoxazole-trimethoprim (Bactrim DS) 800-160 MG per tablet TAKE 1 TABLET BY MOUTH TWICE A DAYFOR 14 DAYS 01/14/2025 ActiveStart: 08-27-2024 End: 21-54-2135aamguerfsvffmtzj-trimethoprim (Bactrim DS) 800-160 MG per tablet 08/27/2024 10/27/2024 Discontinued(Therapy completed)Symbicort 160/4.5 inhalation aerosol with adapter (3 sources)Start: 11-86-4879Hadarbpsc 160/4.5 inhalation aerosol with adapter Refill(s) 0 Start Date: 02/06/22 Status: Hfbbtmu04 actuat tiotropium 0.0025 mg/actuat inhalation spray (7 sources)AnticholinergicStart: 38-58-1843Brhvjdy Respimat 60 ACT 2.5 mcg/inh inhalation aerosol Refills(s) 0 Start Date: 02/06/22 Status: Orderedtake 2 puff(s) by inhalation in the morningtiotropium (Spiriva Respimat) 2.5 MCG/ACT inhaler Inhale 2 puffs in the morning. 0 Activetake 2 puff(s) by inhalation twice daily Spiriva Respimat 2.5 MCG/ACT 2 puffs Inhalation TWICE A DAY ActiveTirzepatide (2 sources)Start: 21-75-0143Lajtkcuybon (Mounjaro) 15 MG/0.5ML solution auto-injector (20 sources)Start: 16-68-4069lsuoim 15 mg by subcutaneous injection every week Tirzepatide (Mounjaro) 15 MG/0.5ML solution auto-injector Indications: Type 2 diabetes mellitus with other circulatory complications (HCC) Inject 15 mg under the skin 1 (one) time per week 6 mL 1 02/27/2025 ActiveStart: 11-09-9813ammfdg 15 mg by subcutaneous injection every weekTirzepatide (Mounjaro) 15 MG/0.5ML solution auto-injector Indications: Type 2 diabetes mellitus with other circulatory complications (HCC) INJECT 15MG SUBCUTANEOUSLY ONCE A WEEK 6 mL 1 07/07/2024 ActiveStart: 11-22-4517dvcrok 15 mg by subcutaneous injection every weekTirzepatide (Mounjaro) 15 MG/0.5ML solution auto-injector Indications: Type 2 diabetes mellitus with other circulatory complications INJECT 15MG SUBCUTANEOUSLY ONCE A WEEK 6 mL 1 07/07/2024 ActiveStart: 07-50-3005ircyyf 15 mg by subcutaneous injection every weekTirzepatide [...] oral tablet (20 sources)Partial Cholinergic Nicotinic AgonistStart: 30-53-0872ubjy 1 tablet by mouth twice dailyStart: 12-19-2024 End: 12-91-1263vplu 1 tablet by mouth in the morningvarenicline (Chantix) 1 MG tablet Indications: Tobacco user , Encounter for smoking cessation counseling TAKE 1 TABLET BY MOUTH IN THE MORNING AND 1 TABLET BEFORE BEDTIME. TAKE WITH FULL GLASS OF WATER. 60 tablet 1 03/09/2025 ActiveStart: 08-27-2024 End: 20-67-0369niwj 1 tablet by mouth in the morningvarenicline (Chantix) 1 MG tablet Indications: Tobacco user , Encounter for smoking cessation counseling Take 1 tablet (1 mg) by mouth in the morning and 1 tablet (1 mg) before bedtime. Take with full glass of water.. 60 tablet 1 08/27/2024 ActiveStart: 12-05-2023 End: 09-43-1228Bznkzpxwtnp Tartrate, Starter, 0.5 MG X 11 & 1 MG X 42 tablet [facility]/05/2023 07/14/2024 Discontinued (Therapy completed)Start: 39-41-2566Cutoblupnos Tartrate, Starter, 0.5 MG X 11 & 1 MG X 42 tablet therapy pack [facility] 12/05/2023 Active Completed/Discontinued Medications MedicationDrug Class(es)DatesSig (Normalized)Sig (Original)amoxicillin 875 mg / clavulanate 125 mg oral tablet (6 sources)Penicillin-class AntibacterialStart: 12-05-2024 End: 86-67-5486tgln 1 tablet by mouth every twelve hoursamoxicillin-clavulanate (Augmentin) 875-125 MG tablet Take 1 tablet by mouth every 12 (twelve) hours 12/05/2024 01/26/2025 Discontinued (Therapy completed)cephalexin 500 mg oral capsule (9 sources)Cephalosporin AntibacterialStart: 2024 End: 01-26-9746jojtunptjp (Keflex) 500 MG capsule 2024 10/27/2024 Discontinued (Therapy completed)Glucose Blood (ACCU-CHEK JAQUI PLUS ) (14 sources) End: 32-73-0067Sotozwu Blood (ACCU-CHEK JAQUI PLUS ) 4 (four) times a day. 07/14/2024 Discontinued (Therapy completed)Glucose Blood (ACCU-CHEK JAQUI PLUS ) 4 (four) times a day. ActiveGlucose Blood (ACCU-CHEK JAQUI PLUS ) 4 (four) times a day. 0 Active3 ml liraglutide 6 mg/ml pen injector (6 sources)GLP-1 Receptor Agonist End: 73-47-1744xbtshblqyve (Victoza) 18 MG/3ML injection Inject under the skin Daily 07/14/2024 Discontinued (Therapy completed)naproxen 500 mg oral tablet (2 sources)Nonsteroidal Anti-inflammatory DrugStart: 12-13-2017 End: 06-65-7992zpzy 1 tablet by mouth twice daily at mealtimeNaproxen 500 mg tablet Discontinued 500 MG PO Twice daily 20 0 December 13, 2017 12:00am April 05, 2025 12:53pm administer with food or milknortriptyline 50 mg oral capsule (18 sources)Tricyclic AntidepressantStart: 12-13-2017 End: 52-94-5020vuam 1 capsule by mouth once daily at bedtimeNortriptyline 50 mg Capsule Discontinued 50 MG PO Daily at bedtime December 13, 2017 12:00am April 05, 2025 12:53pmubrogepant 100 mg oral tablet (12 sources) End: 48-75-3212lyfk 1 tablet by mouth every twenty-four hours as needed Ubrogepant (Ubrelvy) 100 MG tablet Take 100 mg by mouth Daily as needed 07/14/2024 Discontinued (Therapy completed) Problems Active Problems Problem ClassificationProblemDateDocumented DateEpisodic/ChronicAbdominal pain (6 sources)Left flank pain; Translations: [Lower abdominal pain, unspecified] Onset: 063769-36-7606ZifzgxfbCoitbdzc foot deformities (1 source)Other hammer toe(s) (acquired), right foot; Translations: [OTHER HAMMER TOES ACQUIRED RT FOOT]Onset: 33-54-7262ZqnmnddXbyvaypf foot deformities (1 source)Other hammer toe(s) (acquired), left foot; Translations: [OTHER HAMMER TOES ACQUIRED LT FOOT]Onset: 94-03-0464DvxfejyEbyqkoq disorders (20 sources)Mixed anxiety and depressive disorder; Translations: [Anxiety disorder, unspecified]Onset: 644261-35-2025ZsaorzhPpyzzb (20 sources)Asthma; Translations: [Unspecified asthma, uncomplicated]Onset: 956820-05-3122BepjxzsNjhczf of cervix (20 sources)Malignant tumor of cervix; Translations: [Malignant neoplasm of cervix uteri, unspecified]Onset: 681977-47-4772RaaktldMerkoz of cervix (2 sources)History of malignant neoplasm of cervix; Translations: [Personal history of malignant neoplasm of cervix uteri]59-74-4967OxiefzafBwutqok kidney disease (5 sources)Chronic kidney disease; Translations: [Chronic kidney disease, unspecified]Onset: 02-20-2022 Resolved: 75-86-1546YbvzmxhZvdflow obstructive pulmonary disease and bronchiectasis (20 sources)Pulmonary emphysema; Translations: [Chronic obstructive pulmonary disease with (acute) exacerbation]Onset: 377575-41-6883PvgerltLhiacky ulcer of skin (20 sources)Non-pressure chronic ulcer of other part of right lower leg limited to breakdown of skin; Translations: [Non-pressure chronic ulcer of other part of left lower leg limited to breakdown of skin]Onset: 295079-74-6558Zgggmvf Congestive heart failure; nonhypertensive (20 sources)Chronic diastolic heart failure; Translations: [Chronic diastolic (congestive) heart failure]Onset: 882588-70-2259OawocaoXltdcczl mellitus with complications (20 sources)Disorder of kidney due to diabetes mellitus; Translations: [Type 2 diabetes mellitus with diabetic chronic kidney disease]Onset: 02-20-2022 Resolved: 50-95-3185VagrgevJpxgprno mellitus without complication (13 sources)Type 2 diabetes mellitus; Translations: [Type 2 diabetes mellitus without complications]Onset: 139733-22-4563HjosclyZkmbdfjpv of lipid metabolism (20 sources)Pure hypercholesterolemia, unspecified; Translations: [Hyperlipidemia, unspecified]Onset: 116054-01-5186AbgqbrlTaijzobrsx disorders (20 sources)Gastro-esophageal reflux disease without esophagitis; Translations: [Gastroesophageal reflux disease]Onset: 12-05-2022 Resolved: 409060-53-1361BpxtnwnHqhaooglr hypertension (20 sources)Hypertensive disorder; Translations: [Essential (primary) hypertension]Onset: 003509-68-5430YlirebeRijsntmalmiyf symptoms and ill- defined conditions (20 sources)Mixed incontinence; Translations: [Incontinence]Onset: 02-06-2022 ChronicGout and other crystal arthropathies (20 sources)Gout; Translations: [Gout, unspecified]Onset: ChronicHypertension with complications and secondary hypertension (5 sources)Chronic kidney disease due to hypertension; Translations: [Hypertensive chronic kidney disease withstage 1 through stage 4 chronic kidney disease, or unspecified chronic kidney disease]Onset: 02-20-2022 Resolved: 86-20-9378EqfipvoXres disorders (1 source)Major depressive disorder, single episode, unspecified; Translations: [ANASTACIO DEPRESS D/O SINGLE EPIS UNS]Onset: 32-54-3118NdkxhytQmikvgabilhqt gastroenteritis (1 source)Noninfective gastroenteritis and colitis, unspecified; Translations: [NONINFECTIVE GE AND COLITIS UNS]Onset: 27-25-8299WoxlsnctTvzyphufcmd deficiencies (20 sources)Vitamin D deficiency; Translations: [Vitamin D deficiency, unspecified]Onset: 147989-03-4413MzktabhAvitjtwbcmxxnh (20 sources)Arthritis; Translations: [Unspecified osteoarthritis, unspecified site]Onset: 899162-57-9486ZgezvwpOzuhl aftercare (1 source)Other custodial (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 therapy; Translations: [OTH DETENTION CURRENT DRUG THERAPY]Onset: 82-98-7471SlhzocjnNffgg aftercare (1 source)FCI (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; Translations: [DETENTION CURRENT USE OF ASPIRIN]Onset: 14-18-5062MnrywoniJtfop aftercare (6 sources)Long-term current use of insulin; Translations: [FCI (current) use of insulin]32-97-9513McbocggfApvut and ill-defined heart disease (20 sources)Cardiomegaly; Translations: [Cardiomegaly]Onset: 10-25-2017 41-27-5187XiqerujLzmya and ill-defined heart disease (1 source)Cardiomegaly; Translations: [Cardiomegaly]Onset: 40-36-5628Mejlvxc Other and unspecified benign neoplasm (1 source)Benign lipomatous tumor; Translations: [Benign lipomatous neoplasm of other sites]Onset: 16-28-5472QulpkvplOtwfc bone disease and musculoskeletal deformities (1 source)Acquired absence of other left toe(s); Translations: [ACQUIRED ABSENCE OF OTHER LEFT TOES]Onset: 71-60-3019OksfclymGiezm diseases of kidney and ureters (1 source)Urinary tract obstruction; Translations: [Other obstructive and reflux uropathy]Onset: 90-92-4850TmuzhobdKegbu diseases of veins and lymphatics (1 source)Chronic venous hypertension (idiopathic) with ulcer and inflammation of bilateral lower extremity; Translations: [CHRN KEO HTN ULCR INFLAM ALEX LW EXT]Onset: 57-93-8615GbhhpczQewdj diseases of veins and lymphatics (1 source)Chronic venous hypertension (idiopathic) with ulcer of left lower extremity; Translations: [CHRON VENOUS HTN W/ULCER LT LW EXT]Onset: 09-01-2022 ChronicOther diseases of veins and lymphatics (1 source)Lymphedema, not elsewhere classified; Translations: [LYMPHEDEMA NOT ELSEWHERE CLASSIFIED]Onset: 73-24-5533DvxolmiYpzws diseases of veins and lymphatics (5 sources)Chronic peripheral venous hypertension with lower extremity complication; Translations: [Chronic venous hypertension (idiopathic) with ulcer of bilateral lower extremity]Onset: 748294-96-9196CalzcppDrayd diseases of veins and lymphatics (20 sources)Chronic peripheral venous hypertension; Translations: [Chronic venous hypertension (idiopathic) with ulcer of bilateral lower extremity]Onset: 557415-15-3841UzaemhgHtcgb diseases of veins and lymphatics (18 sources)Stasis dermatitis and venous ulcer of right lower extremity due to chronic peripheral venous hypertension; Translations: [Chronic venous hypertension (idiopathic) with ulcer and inflammation of rightlower extremity] Onset: 962726-77-2970PkqzqrbTfjdh endocrine disorders (2 sources)Disorder of adrenal gland; Translations: [Other specified disorders of adrenal gland]Onset: 25-12-1938PsgfcfrGddbh endocrine disorders (20 sources)Adrenal mass; Translations: [Disorder of adrenal gland, unspecified] Onset: 228104-52-3646OenzlmmQvsrl endocrine disorders (2 sources)Disorder of adrenal gland, unspecifiedOnset: 02-20-2022 Resolved: 72-01-5870WoluylmEzmzc endocrine disorders (5 sources)Other specified disorders of adrenal gland; Translations: [OTHER SPEC DISORDERS ADRENAL GLAND]Onset: 95-33-9589NsnwxufAanvp gastrointestinal disorders (3 sources)Adrenal uvgb55-36-6640OooiilyyWglpv lower respiratory disease (1 source)Hypoxemia; Translations: [HYPOXEMIA]Onset: 09-39-0767BnyyyuglZgvzg nervous system disorders (5 sources)Chronic pain syndrome; Translations: [CHRONIC PAIN SYNDROME]Onset: 41-29-0319ZycjdfxQknqj nervous system disorders (1 source)Other chronic pain; Translations: [OTHER CHRONIC PAIN]Onset: 63-41-5789YvqrznkIhbqb non-traumatic joint disorders (4 sources)Pain in right hip; Translations: [PAIN IN RIGHT HIP]Onset: 04-27-2022 EpisodicOther nutritional; endocrine; and metabolic disorders (2 sources)Localized adiposity; Translations: [Localized adiposity]ChronicOther nutritional; endocrine; and metabolic disorders (20 sources)Body mass index 40+ - severely obese; Translations: [Body mass index (BMI) 50.0-59.9, adult]Onset: 597370-13-8433TffmujiRarsi nutritional; endocrine; and metabolic disorders (3 sources)Body mass index (BMI) 50.0-59.9, adult; Translations: [BODY MASS INDEX BMI 50.0-59.9 ADULT]Onset: 10-00-3003NwxkaznCctbv nutritional; endocrine; and metabolic disorders (3 sources)Morbid (severe) obesity due to excess calories; Translations: [MORBID SEVERE OBES D/T EXCESS NHI]Onset: 59-20-1893WqxnhixWhznv nutritional; endocrine; and metabolic disorders (1 source)Obesity, unspecified; Translations: [OBESITY UNSPECIFIED]Onset: 46-32-8340VfgumrjAnrdw nutritional; endocrine; and metabolic disorders (20 sources)Obesity caused by energy imbalance; Translations: [Morbid (severe) obesity due to excess calories]Onset: 010981-10-6298AxrndsrLforb screening for suspected conditions (not mental disorders or infectious disease) (1 source)Encounter for screening mammogram for malignant neoplasm of breast; Translations: [ENC SCR MAMMO MALIG NEOPLASM BREAST]Onset: 11-82-5100Ebveaosm Other skin disorders (2 sources)Bilateral localized swelling of lower legs; Translations: [Localized swelling, mass and lump, lowerlimb, bilateral]20-88-8378MuxzwogvSlrew upper respiratory disease (20 sources)Allergic rhinitis; Translations: [Other allergic rhinitis]Onset: 951903-34-4914RnulhkuPndfcvgaqf and visceral atherosclerosis (20 sources)Peripheral vascular disease, unspecified; Translations: [Peripheral vascular disease, unspecified]Onset: 512313-70-5958TywtvgbRlzsnomch heart disease (20 sources)Pulmonary hypertension; Translations: [Pulmonary hypertension, unspecified]Onset: 531555-02-0062XqtofusPxjfymbf codes; unclassified (3 sources)Obstructive sleep apnea (adult) (pediatric); Translations: [OBSTRUCTIVE SLEEP APNEA]Onset: 16-81-1375SmesdwgZliyvpqn codes; unclassified (20 sources)Obstructive sleep apnea syndrome; Translations: [Obstructive sleep apnea (adult) (pediatric)]Onset: 919757-85-4267PchzdcmRpgjdmgt codes; unclassified (1 source)Acquired absence of other specified parts of digestive tract; Translations: [ACQ ABSENCE OTH PART DIGESTV TRACT]Onset: 70-24-0688Hkulgnyu Residual codes; unclassified (1 source)Acquired absence of both cervix and uterus; Translations: [ACQUIRED ABSENCE BOTH CERVIX AND UTERUS]Onset: 55-35-7355WsznpzkaUlgvcrsl codes; unclassified (1 source)Family history of malignant neoplasm of ovary; Translations: [FAM HX MALIGNANT NEOPLASM OVARY]Onset: 41-37-2631EincqunvLxyokkem codes; unclassified (1 source)Family history of malignant neoplasm, unspecified; Translations: [FAM HX MALIGNANT NEOPLASM UNS]Onset: 74-04-2049WhcxkiabOjjwnmtma-related disorders (20 sources)Nicotine dependence; Translations: [Nicotine dependence, unspecified, uncomplicated]Onset: 14-82-8798LcohwxbHvqocez on above:Added secondary to documentation in Social History.Unclassified (1 source)DETENTION INJECT NONINSULN ANTIDIAB; Translations: [DETENTION INJECT NONINSULN ANTIDIAB]Onset: 49-15-5660Cmpnfckqpvgp (3 sources)CONTACT W/AND (SUSP) EXPOS COVID-19; Translations: [CONTACT W/AND (SUSP) EXPOS COVID-19]Onset: 96-25-5335Anosptlbuioz (3 sources)LOW BACK PAIN, UNSPECIFIED; Translations: [LOW BACK PAIN, UNSPECIFIED]Onset: 46-22-6562Eyltwnzrmbav (1 source)Obesity, class 3; Translations: [Obesity, class 3]Onset: 11-14-2023 Viral infection (1 source)COVID-19; Translations: [COVID-19]Onset: 09-29-2022 Past or Other Problems Problem ClassificationProblemDateDocumented DateEpisodic/ChronicAcquired foot deformities (1 source)Other deformities of toe(s) (acquired), left foot; Translations: [OTHER DEFORMITIES TOES ACQ LT FOOT]Onset: 70-21-8225Orxhorfx Administrative/social admission (20 sources)Patient encounter status; Translations: [Dietary counseling and surveillance]Onset: 397582-90-2325QevupgbxFqaflrhs of urinary tract (20 sources)Kidney stone; Translations: [Calculus of kidney]Onset: 02-06-2022 EpisodicE Codes: Natural/environment (1 source)Other and unspecified overexertion or strenuous movements or postures, initial encounter; Translations: [OTH AND UNS OVREXRT/STRN MVMT/POS INT]Onset: 97-58-8369BonebymiOlezv of unknown origin (18 sources)Fever; Translations: [Fever, unspecified]Onset: EpisodicGenitourinary symptoms and ill-defined conditions (20 sources)Proteinuria; Translations: [Proteinuria, unspecified]Onset: 02-06-2022 Resolved: 36-04-0117YobexctvFvzrbsou; including migraine (20 sources)Headache; Translations: [Headache disorder]Onset: 01-17-2024 63-42-6446YvdihamdIviqcchtspkku and screening for infectious disease (20 sources)Encounter for screening for other infectious and parasitic diseases; Translations: [Anti-nuclear factor positive]Onset: 933034-78-9669Wboijlpb Mood disorders (20 sources)Mood disorders; Translations: [DEPRESSION UNSPECIFIED]Onset: 637160-25-1711Vgpalkc (20 sources)Tinea unguium; Translations: [Candidiasis of vagina]Onset: 09-09-2003WrldfxqnBdfesusejbj deficiencies (20 sources)Vitamin deficiency; Translations: [Vitamin deficiency, unspecified] Onset: 886184-18-5788ZrujwsalQmlwf aftercare (3 sources)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; Translations: [DESTINATION SPECIALIST CURRENT USE OF INSULIN]Onset: 85-43-4676HlosqqmbTqayu aftercare (20 sources)Long-term current use of inhaled steroid; Translations: [terminal clerk (current) use of inhaled steroids]Onset: 019358-51-5753IyihhzbrVtckj and unspecified benign neoplasm (20 sources)Myelolipoma of adrenal gland; Translations: [Benign lipomatous neoplasm of other sites]Onset: 584002-05-8029BoufbbhwNivoc connective tissue disease (4 sources)Other muscle spasm; Translations: [OTHER MUSCLE SPASM]Onset: 48-61-3528HefzgdpdYckjo diseases of veins and lymphatics (20 sources)Vascular insufficiency; Translations: [Venous insufficiency (chronic) (peripheral)]Onset: 960371-97-3263HbrgfjggVocor diseases of veins and lymphatics (2 sources)Venous insufficiency (chronic) (peripheral); Translations: [Venous insufficiency (chronic) (peripheral)]Onset: 31-09-6989PkusyxofFeitd hematologic conditions (1 source)Secondary polycythemiaOnset: 03-08-2022 Resolved: 78-39-1870WwcuefqzMrdnx nervous system disorders (20 sources)Reduced mobility; Translations: [Other abnormalities of gait and mobility]Onset: 535753-46-7926MfhqyrvyCvjre non-traumatic joint disorders (1 source)Effusion, left knee; Translations: [EFFUSION LEFT KNEE]Onset: 36-31-0968VdjxgkhhQatbq non-traumatic joint disorders (1 source)Pain in left knee; Translations: [PAIN IN LEFT KNEE]Onset: 07-26-2022 EpisodicOther non-traumatic joint disorders (20 sources)Pain in right knee; Translations: [Pain in joint, lower leg]Onset: 857126-80-5867HquvtzwwBtzjn nutritional; endocrine; and metabolic disorders (20 sources)Severe obesity; Translations: [Morbid (severe) obesity due to excess calories]Onset: 07-10-2023 Resolved: 224011-03-9998IvbaxyuVobcq nutritional; endocrine; and metabolic disorders (20 sources)Excess panniculus of abdomen; Translations: [Localized adiposity] Onset: 10-25-2017 Resolved: 295133-12-1489TxioasaKfgxw skin disorders (1 source)Nail dystrophy; Translations: [NAIL DYSTROPHY]Onset: 09-01-2022 EpisodicOther skin disorders (1 source)Corns and callosities; Translations: [CORNS AND CALLOSITIES]Onset: 16-31-4350QufqutnvUolpp skin disorders (1 source)Xerosis cutis; Translations: [XEROSIS CUTIS]Onset: 19-18-3622Kpzceryt Other skin disorders (20 sources)Hyperpigmentation of skin; Translations: [Disorder of pigmentation, unspecified]Onset: 477039-44-2734KzqoocneLibfvj media and related conditions (20 sources)Acute suppurative otitis media without spontaneous rupture of ear drum; Translations: [Acute suppurative otitis media without spontaneous rupture of ear drum, left ear]Onset: 01-17-2024 Resolved: 155769-38-2455VplsxadmPwherxqiok disorders (not diabetes) (20 sources)Acute pancreatitis without necrosis or infection, unspecified; Translations: [Pancreatitis]Onset: 323618-25-8449ScsxoqdrTzndxasuu (except that caused by tuberculosis or sexually transmitted disease) (20 sources)Pneumonia; Translations: [Pneumonia, unspecified organism]Onset: 09-17-2023 Resolved: 558201-71-8572NwthoohkQkuojgsf codes; unclassified (3 sources)Localized edema; Translations: [LOCALIZED EDEMA]Onset: 09-01-2022 EpisodicResidual codes; unclassified (20 sources)Edema; Translations: [Edema, unspecified]Onset: 07-10-2023 Resolved: 319933-67-7486KrhpbdkcCzyfurdr codes; unclassified (20 sources)Bilateral lower limb edema; Translations: [Localized edema]Onset: 623402-85-5791RsfgxtpoZokmvdth codes; unclassified (20 sources)Insomnia; Translations: [Insomnia, unspecified]Onset: 09-17-2023 54-77-8255MhxciacoVrtobdou codes; unclassified (20 sources)Tobacco user; Translations: [Tobacco use]Onset: 09-17-2023 Resolved: 596500-32-0333BmygvrxcHwcmzxoi codes; unclassified (20 sources)Edema of lower extremity; Translations: [Localized edema]Onset: 09-17-2023 Resolved: 404855-20-7880YdljtoktIisv and subcutaneous tissue infections (20 sources)Cellulitis of right lower limb; Translations: [Cutaneous abscess of left axilla]Onset: 76-33-9174OwufbdctBguruatolhl; intervertebral disc disorders; other back problems (20 sources)Lumbar radiculopathy; Translations: [Radiculopathy, lumbar region] Onset: 831834-20-5681NnejqxfxTjcqfbe and strains (1 source)Strain of muscle, fascia and tendon of lower back, initial encounter; Translations: [STRAIN MUSC FASC TENDON LW BACK INT]Onset: 74-91-2389Zqeyeeuu Unclassified (1 source)CONTACT W/AND (SUSP) EXPOS COVID-19; Translations: [CONTACT W/AND (SUSP) EXPOS COVID-19]Onset: 12-23-8302Imlseycxpcng (1 source)LOW BACK PAIN, UNSPECIFIED; Translations: [LOW BACK PAIN, UNSPECIFIED] Onset: 92-67-2352Pyhxfnrxyfet (4 sources)Patient encounter -43-2011Acdvammucwqr (1 source)Obesity, class 3; Translations: [Obesity, class 3]Onset: 08-08-2024 Varicose veins of lower extremity (20 sources)Varicose veins of right lower extremity with ulcer of unspecified site; Translations: [Varicose veins of lower extremities with ulcer]Onset: 06-19-2024 Resolved: 364032-86-2413Zzhmscca Results Test NameValueInterpretationReference RangeFacility.eGFRon 45-17-2881WCD/1.73 sq M.predicted MDRD (S/P/Bld) [Vol rate/Area]mL/min/{1.73_m2}Normal>=60BlTriHealth Bethesda North HospitalComment on above:Result Comment: [facility] have implemented the eGFR calculation [...] = yearsPerformed By: #### EGFR #### [address] [address]GDF w/ Diffon 53-47-7414Rbnxhiszhjq distribution width (RBC) [Ratio]20.0 %High11.6-14.8BSumma Health Barberton CampusComment on above: Performed By: #### CBC #### [address] [address]Spcfinommo (Bld) [Volume fraction]53.8 %High36.0-46.0[facility] CampusComment on above:Performed By: #### CBC #### [address] [address]Hkompukeer (Bld) [Mass/Vol]17.7 g/pURjmm08.0-16.0[facility] CampusComment on above:Performed By: #### CBC #### [address] [address]AXX (RBC) [Entitic mass]27.1 ngWhoopg72.0-35.0[facility] CampusComment on above:Performed By: #### CBC #### [address] [address]FOZW01.9 %Ykgelf84.0-37.0[facility] CampusComment on above:Performed By: #### CBC #### [address] [address]NCJ (RBC) [Entitic vol]82.2 nTGcquko67.0-100.0[facility] CampusComment on above:Performed By: #### CBC #### [address] [address]Opqhudoa248 x10*3/pbWKkm118-874RvdivarcwTrinity Health System West Campus Comment on above:Performed By: #### CBC #### [address] [address]Xindoumq mean volume (Bld) [Entitic vol]10.4 fLNormal6.7-10.6 [facility] CampusComment on above:Performed By: #### CBC #### [address] [address]UKL8.54 x10*6/mcLHigh3.80-5.20[facility] Comment on above:Performed By: #### CBC #### [address] [address]ERC80.6 x10*3/mcLHigh4.5-11.0[facility] Comment on above:Performed By: #### CBC #### [address] [address]QTVfd 59-36-5053PUA [Mass/Vol]35.5 mg/LHigh0.0-9.9BSumma Health Barberton CampusComment on above:Result Comment: For normal applications of [...] CARDIAC EVENTS.Performed By: #### CRP #### [address] [address]Awzi Autoon 75-83-4373Zqxs Absolute0.1 x10*3/mcLNormal0.0-0.2 [facility] CampusComment on above:Performed By: #### .Automated Diff #### [address] [address]Acbbztrby/100 WBC (Bld)0.5 %Normal0.0-1.5BSumma Health Barber[facility] CampusComment on above:Performed By: #### .Automated Diff #### [address] [address]Dxz Absolute0.3 x10*3/mcLNormal0.0-0.4BSumma Health Barberton Campus SystemComment on above:Performed By: #### .Automated Diff #### [address] [address]Pdvrxjtpkbt/100 WBC (Bld)2.3 %Normal0.0-5.4BSumma Health Barberton CampusComment on above:Performed By: #### .Automated Diff #### [address] [address]Ghewu Absolute2.8 x10*3/mcLNormal1.0-4.8BSumma Health Barber[facility] CampusComment on above:Performed By: #### .Automated Diff #### [address] [address]Mxwygrtzobt/100 WBC (Bld)22.5 %Low27.2-40.8BSumma Health Barber[facility] CampusComment on above:Performed By: #### .Automated Diff #### [address] [address]Klql Absolute0.6 x10*3/mcLNormal0.1-1.1BSumma Health Barber[facility] CampusComment on above:Performed By: #### .Automated Diff #### [address] [address]Rwvinsyfe/100 WBC (Bld)5.1 %Normal3.7-11.9BSumma Health Barber[facility] CampusComment on above:Performed By: #### .Automated Diff #### [address] [address]Qojlso Absolute8.8 x10*3/mcLHigh1.8-7.7BSumma Health Barberton CampusComment on above:Performed By: #### .Automated Diff #### [address] [address]Scpnzm Auto69.6 %Cvxqgl11.2-70.8BSumma Health [facility] Campus Comment on above:Performed By: #### .Automated Diff #### [address] [address]KILyn 16-59-6540Iht Rate12 mm/hrNormal0-30[facility] CampusComment on above:Performed By: #### ESR #### [address] [address]Mrpxotds Office/Clinic Noteon 49-24-3758Epbsftps Office/Clinic NoteThe content of this note was [...] solely to facilitate the conversation. Missing Attachment [id number] Can be viewed in source system The [...] prescription lotion to the wounds. She takes [place] for pain and daily baby aspirin. She smokes and is on disability, and does not require [facility] paperwork. She reports recent blood flow studies [...] Orthopedic: Bony foot structur (more content not included)...[facility] HospitalComment on above:Order Comment: Missing Attachment [id number] Can be viewed in source systemMissing Attachment [id number] Can be viewed in source system Provider Letteron 40-15-4504Clbsspbi Letter Mckayla lBas, BAR HOST-[employer] P[employer]ER [address] [place] [address] Re: Mitzi Macias Date of Visit: 05/18/2025 Dear Mckayla Blas APRN-SAYDA, [facility] [address] [place] [address], [phone] Date: 05/18/2025 12:46:10 Please see attached progress/office note regarding mutual patient, Mitzi Macias who was seen on04/29/2025 14:16:18. Please see attached note for further details and please call with any questions or concerns. Sincerely, KANDI Sampson Providers: The following document(s) were included in the letter: May 18, 2025 12:43:05 EST - (05/18/2025) Office Visit Note CAANormal [facility] CampusRenal Panelon 70-95-6741Jollopw [Mass/Vol]3.5 g/dL Low3.7-5.3BSumma Health Barberton CampusComment on above:Performed By: #### RENAL #### [address] [address]Klnaq gap [Moles/Vol]6 mmol/LNormal4-12[facility] System West CampusComment on above:Performed By: #### RENAL #### [address] [address]ONW Crea Ratio25.0 hcfqaYacuug02.0-25.0[facility] System West CampusComment on above:Performed By: #### RENAL #### [address] [address]Fatqrxm [Mass/Vol]9.0 mg/dLNormal8.6-10.3BSumma Health Barberton CampusComment on above:Performed By: #### RENAL #### [address] [address]Lgrnvpef [Moles/Vol]105 mmol/EInsbmc74-070OsefjcbdhTrinity Health System West CampusComment on above:Performed By: #### RENAL #### [address] [address]RE4 [Moles/Vol]30 mmol/QVyxbte74-70WumhbwjpyTrinity Health System West CampusComment on above:Performed By: #### RENAL #### [address] [address]Aupfrjttfs [Mass/Vol]0.80 mg/dLNormal0.60-1.20[facility] CampusComment on above:Performed By: #### RENAL #### [address] [address]Nbsnplk [Mass/Vol]137 mg/tILixt49-78PefaexasvTrinity Health System West CampusComment on above:Performed By: #### RENAL #### [address] [address]Bmktvqhkg [Mass/Vol]3.6 mg/dLNormal2.5-4.6BSumma Health Barberton CampusComment on above:Performed By: #### RENAL #### [address] [address]Mpbfhgbfs [Moles/Vol]4.5 mmol/LNormal3.4-4.8BSumma Health Barberton CampusComment on above:Performed By: #### RENAL #### [address] [address]Jkvqwb [Moles/Vol]141 mmol/GEgiljz237-282XlblefcspTrinity Health System West CampusComment on above:Performed By: #### RENAL #### [address] [address]Lkhy nitrogen [Mass/Vol]20 mg/dLNormal7-25[facility] CampusComment on above:Performed By: #### RENAL #### [address] [address]Ipusmkaxjfx 66-08-8637HjbsfvbucZoktmckvz From: Maria Elena Negrete To: EU - [...] ) Other: PROVIDER RELATED REMINDER:_ ( ) Talent Development Coordinator ( ) Call Pharmacy ( ) Call [...] unable to leave a message at this time.[facility] HospitalVascular Office/Clinic Noteon 91-07-5876Qsloypwo Office/Clinic NoteChief Complaint Leg ulcer History of Present Illness Mitzi was referred by her credit union 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 She has had ulcers in the bilateral lower extremities above the ankle for about a year. She has been seen by wound care in [facility]. They are applying compression with [...] signed by Corinne Kellogg MD 04/23/25 11:56 [facility] VL Ankle Brachial Indiceson 05-39-9863PM Ankle Brachial IndicesPreliminary Technologist Report Ankle/brachial index study was performed. Please see below for information. Office Mover: Zayra Ag, RVS Radiologist Report BILATERAL LOWER [...] please contact our Vascular Rehabilitation Department at [phone]. Final Signed by: Jose F Casanova MD Signed (Electronic Signature): 04.17.2025 3:28 pm Transcribed by: Jose F Casanova MD Transcribed DT/TM: 04.17.2025 3:12 (If Report is Signed, Electronically Signed in Other Vendor System)Normal [facility] System West CampusBasophils Auto (Bld) [#/Vol]Ordered By: Flynn Urias on 69-81-0057Rbbpprusw (Bld) [#/Vol]0.1 10 3/uL0.0-0.1FClinton Memorial HospitalBasophils/100 WBC Auto (Bld)Ordered By: Flynn Urias on 98-09-2348Qjyqrbtsd/100 WBC (Bld)0.6 %0.2-2.0[facility] Eosinophils/100 WBC Auto (Bld)Ordered By: Flynn Urias on 03-26-2025 Eosinophils/100 WBC (Bld)2.7 %0.9-7.0[facility] Erythrocyte distribution width Auto (RBC) [Ratio]Ordered By: Flynn Urias on 32-31-6608Dmbecbhjbek distribution width (RBC) [Ratio]16.4 %High11.0-15.0 [facility] HospitalGlomerular filtration rate (GFR) estimation in non- AmericanOrdered By: Flynn Urias on 83-28-5414THZ/1.73 sq M.predicted among non-blacks MDRD (S/P/Bld) [Vol rate/Area]mL/min/{1.73_m2}>=60 mL/min/1.73m 2FClinton Memorial HospitalHematocrit Auto (Bld) [Volume fraction]Ordered By: Flynn Urias on 95-71-7353Hfqwuwcaqd (Bld) [Volume fraction]52.5 %High36.0-48.0[facility] HospitalHemoglobin [Mass/volume] in BloodOrdered By: Flynn Urias on 74-69-6354Zeueiomamw (Bld) [Mass/Vol]16.1 g/lREcrh35.0-16.0[facility] HospitalLaboratory - Chemistry and Chemistry - challengeOrdered By: Flynn Urias on 03-26-2025 Albumin [Mass/Vol]2.8 g/dLLow3.4-5.0[facility] HospitalCalcium [Mass/Vol]8.6 mg/dL8.5-10.1FClinton Memorial HospitalChloride [Moles/Vol] 105 mmol/Y01-886DzuebwijnMercy Health Willard HospitalCO2 [Moles/Vol]31.5 mmol/L 21.0-32.0[facility] HospitalCreatinine [Mass/Vol]0.69 mg/dL 0.55-1.02[facility] HospitalGFR/1.73 sq M.predicted MDRD (S/P/Bld) [Vol rate/Area]mL/min/{1.73_m2}>=60 mL/min/1.73m 2FClinton Memorial HospitalGlucose [Mass/Vol]147 mg/jGNvdg37-665ZgdtszuorMercy Health Willard Hospital Potassium [Moles/Vol]4.2 mmol/L3.5-5.1FLima Memorial Hospitalodium [Moles/Vol]141 mmol/Y882-188WudksujgjMercy Health Willard HospitalUrea nitrogen [Mass/Vol]15.0 mg/dL7.0-18.0[facility] HospitalUrea nitrogen/Creatinine [Mass ratio]21.7 mg/mgMercy Health Willard Hospital Laboratory - Hematology and Cell countsOrdered By: Flynn Urias on 03-26-2025 ESR (Bld) [Velocity]48 mm/hHigh<=30[facility] HospitalImmature granulocytes/100 WBC (Bld)0.3 %0.0-0.5FClinton Memorial Hospital Leukocytes [#/volume] corrected for nucleated erythrocytes in Blood by Automated counOrdered By: Flynn Urias on 26-54-8255DMQ corrected for nucl RBC Auto (Bld) [#/Vol]10.0 10 3/uL4.0-11.0[facility] HospitalLymphocytes Auto (Bld) [#/Vol]Ordered By: Flynn Urias on 12-49-0315Xajwqnykohi (Bld) [#/Vol]2.7 10 3/uL1.2-3.8[facility] HospitalLymphocytes/100 WBC Auto (Bld)Ordered By: Flynn Urias on 33-32-8070Fixtbeupzfl/100 WBC (Bld)27.2 % 20.5-60.0[facility] Auto (RBC) [Entitic mass]Ordered By: Flynn Urias on 81-14-4992UHS (RBC) [Entitic mass]27.2 pg26.7-34.0[facility] HospitalHC Auto (RBC) [Mass/Vol]Ordered By: Flynn Urias on 42-56-1978BOHN (RBC) [Mass/Vol]30.7 g/dL29.9-35.2FClinton Memorial HospitalMCV Auto (RBC) [Entitic vol]Ordered By: Flynn Urias on 37-08-5403CWX (RBC) [Entitic vol]88.7 fL81.0-99.0[facility] HospitalMonocytes Auto (Bld) [#/Vol]Ordered By: Flynn Urias on 97-79-0841Fpfugpdff (Bld) [#/Vol] 0.5 10 3/uL0.3-0.8[facility] HospitalMonocytes/100 WBC Auto (Bld) Ordered By: Flynn Urias on 75-02-0164Mqcxijuda/100 WBC (Bld)5.2 %1.7-12.0 [facility] HospitalNeutrophils Auto (Bld) [#/Vol]Ordered By: Flynn Urias on 73-77-7846Cmkehpvsdob (Bld) [#/Vol]6.4 10 3/uL1.4-6.5FClinton Memorial HospitalNeutrophils/100 WBC Auto (Bld)Ordered By: Flynn Urias on 99-22-6436Hjatursdznu/100 WBC (Bld)64.0 %43.0-75.0[facility] HospitalNo Panel InformationOrdered By: Flynn Urias on 91-53-0133B-Reactive Protein, Quantitative3.94 mg/dLHigh<=0.50[facility] Eosinophils # (Auto)0.3 10 3/uL0.0-0.7FClinton Memorial HospitalImmature Granulocyte # (Auto)0.03 10 3/uL0.00-0.03[facility] Phosphorus Level3.5 mg/dL2.6-4.7FClinton Memorial HospitalPlatelet mean volume Auto (Bld) [Entitic vol]Ordered By: Flynn Urias on 40-58-6220Yblnyhtp mean volume (Bld) [Entitic vol]12.8 fL9.5-13.5FClinton Memorial Hospital Platelets Auto (Bld) [#/Vol]Ordered By: Flynn Urias on 49-62-9485Qebavrapi (Bld) [#/Vol]146 10 3/iFPha115-910HrctyrdbhMercy Health Willard HospitalRBC Auto (Bld) [#/Vol]Ordered By: Flynn Urias on 06-94-4097GNN (Bld) [#/Vol]5.92 10 6/uLHigh4.20-5.40St. Elizabeth Hospitalerum or plasma anion gap determinationOrdered By: Flynn Urias on 77-72-5742Msxje gap [Moles/Vol]8.7 mmol/LFClinton Memorial HospitalBasophils Auto (Bld) [#/Vol]Ordered By: Price Arora on 59-15-3076Jgxjeuvwf (Bld) [#/Vol]0.1 10 3/uL0.0-0.1FClinton Memorial HospitalBasophils/100 WBC Auto (Bld)Ordered By: Price Arora on 12-88-9678Rlcwjkude/100 WBC (Bld)0.4 %0.2-2.0[facility] Eosinophils/100 WBC Auto (Bld)Ordered By: Price Arora on 03-25-2025 Eosinophils/100 WBC (Bld)2.4 %0.9-7.0[facility] Erythrocyte distribution width Auto (RBC) [Ratio]Ordered By: Price Arora on 28-05-3052Mbtegpksxls distribution width (RBC) [Ratio]16.4 %High11.0-15.0 [facility] HospitalGlomerular filtration rate (GFR) estimation in non- AmericanOrdered By: Price Arora on 47-84-2148LVU/1.73 sq M.predicted among non-blacks MDRD (S/P/Bld) [Vol rate/Area]mL/min/{1.73_m2}>=60 mL/min/1.73m 2FClinton Memorial HospitalHematocrit Auto (Bld) [Volume fraction]Ordered By: Price Arora on 38-06-8348Ugyxksczdc (Bld) [Volume fraction]56.6 %High36.0-48.0[facility] HospitalHemoglobin [Mass/volume] in BloodOrdered By: Price Arora on 15-00-8949Nuzphszxeu (Bld) [Mass/Vol]17.4 g/lFFgos51.0-16.0[facility] HospitalLaboratory - Chemistry and Chemistry - challengeOrdered By: Price Arora on 03-25-2025 Bilirubin Ql (U)NegativeNEGATIVEMercy Health Willard HospitalGlucose (U) [Mass/Vol]NegativeNEGATIVEMercy Health Willard HospitalKetones Ql (U) NegativeNEGATIVEMercy Health Willard HospitalpH (U)8.0 [pH]5.0-9.0St. Elizabeth Hospitalpecific gravity (U) [Rel density]1.0201.005-1.025 [facility] HospitalUrobilinogen Qn (U)1.0 {Little'U}/dL0.2-1.0 [facility] HospitalCalcium [Mass/Vol]9.2 mg/dL8.5-10.1FClinton Memorial HospitalChloride [Moles/Vol]106 mmol/N65-009AlidxcnurMercy Health Willard HospitalCO2 [Moles/Vol]36.9 mmol/LHigh21.0-32.0[facility] HospitalCreatinine [Mass/Vol]0.86 mg/dL0.55-1.02[facility] GFR/1.73 sq M.predicted MDRD (S/P/Bld) [Vol rate/Area]mL/min/{1.73_m2}>=60 mL/min/1.73m 2FClinton Memorial HospitalGlucose [Mass/Vol]164 mg/dLHigh 74-106Mer[facility] Will[facility] HospitalPotassium [Moles/Vol]4.0 mmol/L3.5-5.1 [facility] [facility] Hospitalodium [Moles/Vol]144 mmol/O575-237CquylkmebMercy Health Willard HospitalUrea nitrogen [Mass/Vol]14.0 mg/dL7.0-18.0[facility] HospitalUrea nitrogen/Creatinine [Mass ratio]16.3 mg/mgMercy Health Willard HospitalLaboratory - Hematology and Cell countsOrdered By: Price Arora on 49-77-0841Fysjokma granulocytes/100 WBC (Bld)0.3 %0.0-0.5 [facility] HospitalLaboratory - Specimen informationOrdered By: Price Arora on 22-68-2806Sbvskvvojd (U)CLEARCLEARFClinton Memorial HospitalColor (U)LT. YELLOWYELLOWMercy Health Willard HospitalLaboratory - UrinalysisOrdered By: Price Arora on 74-38-9792Cslbbml casts LM Ql (Urine sed) RAREMercy Health Willard HospitalLeukocyte esterase Test strip Ql (U) NegativeNEGATIVEMercy Health Willard HospitalMucus Ql (Urine sed)TRACE AbnormalNONE SEENMercy Health Willard HospitalNitrite Ql (U)NegativeNEGATIVE [facility] HospitalProtein Ql (U)100 mg/dLAbnormalNEG/TRACE [facility] HospitalLeukocytes [#/volume] corrected for nucleated erythrocytes in Blood by Automated counOrdered By: Price Arora on 03-25-2025 WBC corrected for nucl RBC Auto (Bld) [#/Vol]11.8 10 3/uLHigh4.0-11.0[facility] HospitalLymphocytes Auto (Bld) [#/Vol]Ordered By: Price Arora on 41-50-5418Hjrpabyrttk (Bld) [#/Vol]3.1 10 3/uL1.2-3.8[facility] HospitalLymphocytes/100 WBC Auto (Bld)Ordered By: Price Arora on 06-25-3605Ubhueptmrso/100 WBC (Bld)26.4 %20.5-60.0[facility] Auto (RBC) [Entitic mass]Ordered By: Price Arora on 75-34-4672KAV (RBC) [Entitic mass]27.5 pg26.7-34.0[facility] HospitalHC Auto (RBC) [Mass/Vol]Ordered By: Price Arora on 58-29-4597CTNV (RBC) [Mass/Vol]30.7 g/dL29.9-35.2FClinton Memorial HospitalMCV Auto (RBC) [Entitic vol] Ordered By: Price Arora on 69-87-7155UNI (RBC) [Entitic vol]89.4 fL81.0-99.0 [facility] HospitalMonocytes Auto (Bld) [#/Vol]Ordered By: Price Arora on 66-57-2818Afoagswvh (Bld) [#/Vol]0.6 10 3/uL0.3-0.8[facility] HospitalMonocytes/100 WBC Auto (Bld)Ordered By: Price Arora on 25-89-5792Pturvvqqx/100 WBC (Bld)5.2 %1.7-12.0[facility] Neutrophils Auto (Bld) [#/Vol]Ordered By: Price Arora on 89-58-4073Kccfltkmwgo (Bld) [#/Vol]7.7 10 3/uLHigh1.4-6.5FClinton Memorial Hospital Neutrophils/100 WBC Auto (Bld)Ordered By: Price Arora on 03-25-2025 Neutrophils/100 WBC (Bld)65.3 %43.0-75.0[facility] HospitalNo Panel InformationOrdered By: Price Arora on 52-01-4058Zpjyc BacteriaTRACE #/HPFAbnormalNONE SEENMercy Health Willard HospitalUrine Culture ReflexedSelect Medical Cleveland Clinic Rehabilitation Hospital, AvonUrine Occult BloodNegativeNEGATIVEMercy Health Willard HospitalUrine Other CastsSEEN #/LPFAbnormalNONE [facility] HospitalUrine Other CrystalsNone Seen #/HPFNone [facility] HospitalUrine RBC0-2 #/HPF0-2FClinton Memorial Hospital Urine Squamous Epithelial CellsFEW #/LPFAbnormalNONE/RAREMercy Health Willard HospitalUrine WBC0-2 #/HPFAbnormalNONE [facility] HospitalEosinophils # (Auto)0.3 10 3/uL0.0-0.7FClinton Memorial Hospital Immature Granulocyte # (Auto)0.04 10 3/uLHigh0.00-0.03[facility] HospitalPlatelet mean volume Auto (Bld) [Entitic vol]Ordered By: Price Arora on 80-87-4243Fmoabtlt mean volume (Bld) [Entitic vol]12.4 fL9.5-13.5FClinton Memorial HospitalPlatelets Auto (Bld) [#/Vol]Ordered By: Price Arora on 35-14-1662Vayxyderl (Bld) [#/Vol]160 10 3/zE993-565SfjeojwtdMercy Health Willard HospitalRBC Auto (Bld) [#/Vol]Ordered By: Priceoh Arora on 23-78-5239TUH (Bld) [#/Vol]6.33 10 6/uLHigh4.20-5.40St. Elizabeth Hospitalerum or plasma anion gap determinationOrdered By: Price Arora on 62-81-8503Qbaqv gap [Moles/Vol]5.1 mmol/LFClinton Memorial HospitalVascular Office/Clinic Noteon 10-03-5405Snrbzxhg Office/Clinic NoteChief Complaint lle wound History of [...] had testing done at the [facility] last year which she brought with [...] by Omero Santana 03/23/25 12:01 [facility] HospitalPodiatry Office/Clinic Noteon 49-72-9885Trldudoc Office/Clinic NoteThe content of this note was generated by an [employer] (AI) language dictation. The patient or guardian [...] of this note was generated by an [employer] (AI) language dictation. The patient or guardian [...] of this note was generated by an [employer] (AI) language dictation. The patient or [...] wraps (gauze, tila bandage, Coban II, tuba business development), Dakins solution, a 40-daycourse of antibiotics, and [...] other blood thinners. The patient resides in [place]. Review of Systems Constitutional: Negative for signs [...] their lower extremities Positi (more content not included)...[facility] City HospitalComment on above:Order Comment: Missing Attachment [id number] Can be viewed in source systemXR Tibia/Fibula Righton 72-78-1262WE Tibia/Fibula Right2 views right tib- fib demonstrate: [...] Is Signed, Electronically Signed in Other Vendor System)[facility] HospitalResults Follow-Upon 27-40-4830Rfazhdv Follow-Up [id number] Mitzi Macias 1970 F Date Provider Department Center 02/04/2025 Mikaela-AMI ORO CARDIOLOGY None Family History Problem Relation Age of Onset Heart attack Paternal Grandmother Family Status - Relation Status Age at Mother Father Paternal GrandmotherNMercy Health Perrysburg HospitalOrders Onlyon 36-26-4745Rjrbtb [id number] Mitzi Macias 1970 F Date Provider Department Center 01/30/2025 [id number], HISTORICAL [facility] Family History Problem Relation Age of Onset Heart attack Paternal Grandmother Family Status - Relation Status Age at Mother Father Paternal GrandmotherNMercy Health Perrysburg HospitalCA ECHO DOPPLER COMPLETEon 05-57-7439Aoh[place], [place] [address] Cardiology Report Signed Patient: MITZI MACIAS MR#: [id number] : 1970 Acct:[id number] Age/Sex: 54 / F ADM Date: 01/29/25 Loc: CARD Attending Dr: AMI ORO APRN Ordering Physician: AMI ORO APRN Date of Service: 01/29/25 Procedure(s): CA echo doppler complete Accession Number(s): [id number] cc: Mckayla Blas BUTT SAWYER; AMI ORO APRN Patient Name: MITZI MACIAS MR#: [id number] : 1970 Exam Date: 01/29/2025 Ordering Doctor: AMI ORO MAT PUNCHER ECHOCARDIOGRAM REPORT PROCEDURE: CA ECHO DOPPLER COMPLETE [...] HERRERA Signed By: 01/29/251839 DD/ 39 TD/TT: Anesthesiology Resident:TBHRadiology, Radiologist, - 01/29/2025 [place] [address] Cardiology Report Signed Patient: MITZI MACIAS MR#: [id number] : 1970 Acct:[id number] Age/Sex: 54 / F ADM Date: 01/29/25 Loc: CARD Attending Dr: AMI ORO APRN Ordering Physician: AMI ORO APRN Date of Service: 01/29/25 Procedure(s): CA echo doppler complete Accession Number(s): [id number] cc: Mckayla Blas BUTT SAWYER; AMI ORO APRN Patient Name: MITZI MACIAS MR#: [id number] : 1970 Exam Date: 01/29/2025 Ordering Doctor: [...] HERRERA Signed By: 01/29/251839 DD/ 39 TD/TT: Anesthesiology Resident: [facility] HospitalRadiology Study observation (narrative)[facility] ECHO DOPPLER COMPLETEOrdered By: Radiologist Radiology on 38-47-4475SDMVPike County Memorial Hospital Work Phone: Glucose (Bld) [Mass/Vol]on 48-47-0976Hobpgsf Blood, XOX096 mg/dLPike County Memorial HospitalLaboratory - Hematology and Cell countson 01-29-2025 HbA1c (Bld) [Mass fraction]8.4 %[facility] HospitalNo Panel Informationon 01-29-2025 Interpretation and review of laboratory resultsAbnormalColumbia Regional Hospital HealthcareOffice Visiton 04-41-4047Othyuv-up [id number] Mitzi Macias 1970 F Date Provider Department Center 01/06/2025 Mikaela-AMI ORO Wilfredo Rojas Family History Problem Relation Age of Onset Heart attack Paternal Grandmother Family Status - Relation Status Age at Mother Father Paternal Grandmother Level of Service:28893 ID OFFICE/OUTPATIENT ESTABLISHED MOD MDM 30 MIN Reason for Visit and Comments: Congestive Heart Failure [127] Hypertension [314143] Hyperlipidemia [182]NormalKettering Health Miamisburg36on Regarding lab results from 10/08/2024: MD Mickie Merritt MA Lipids, ALT AST, and BMP are normal. HbA1c was not performed. Continue current management. LM on patient's VM.NormalKettering Health MiamisburgGlucose (Bld) [Mass/Vol]Ordered By: Mica Sauceda on 31-08-9442Bseejmn Blood, POC97 mg/dLNOWY HealthcareLaboratory - Hematology and Cell countson 57-11-2538DiF3l (Bld) [Mass fraction]7.4 %NOMS HealthcareNo Panel InformationOrdered By: Mica Sauceda on 93-16-7644FVGV HealthcareTBH UA (CLEAN/CATCH) MICROSCOPIC IF INDICATEon 48-32-7285KZRXDBSIV URINENegativeNEGATIVENOMS HealthcareBLOOD URINENegative NEGATIVENOMS HealthcareClarity (U)CLEARCLEARNOMS HealthcareColor (U)YELLOWYELLOW NOMS HealthcareGLUCOSE URINE UANegativeNEGATIVE mg/dLNOMS Healthcare Interpretation and review of laboratory resultsAbnormalNOMS HealthcareKetones Ql (U)NegativeNEGATIVE mg/dLNOMS HealthcareLeukocyte esterase Test strip Ql (U) NegativeNEGATIVENOMS HealthcareNITRITE URINENegativeNEGATIVENOMS HealthcarepH (U)5.5 [pH]5.0 - 9.0NOMS HealthcareProtein (U) [Mass/Vol]30 mg/dLAbnormal NEG/TRACENOMS HealthcareSPECIFIC GRAVITY URINE>=1.321Hvzmfpgo8.005 - 1.025NOMS HealthcareURINE MICROSCOPIC INDICATEDYESNOMS HealthcareUROBILINOGEN URINE1.0 EU/dL0.2 - 1.0 EU/dLNOMS HealthcareCLINISYNSTILLMAN INFIRMARY HealthcareALL CBC WITH AUTO DIFFon 49-68-3633KTRIJIIQI ABSOLUTE AUTO0.1NOMS HealthcareBasophils/100 WBC (Bld)0.5 %0.2 - 2.0 %NOMS HealthcareEosinophils/100 WBC (Bld)1.9 %0.9 - 7.0 % NOMS HealthcareErythrocyte distribution width (RBC) [Ratio]14.6 %11.0 - 15.0 % NOMS HealthcareHematocrit (Bld) [Volume fraction]50.9 %High36.0 - 48.0 %[facility]OMS HealthcareHemoglobin (Bld) [Mass/Vol]16.1 g/fENmwk50.0 - 16.0 g/dLNOWY HealthcareIMMATURE GRANULOCYTES ABS AUTO0.04HighNOWY HealthcareImmature granulocytes/100 WBC (Bld)0.3 %0.0 - 0.5 %NOMS HealthcareInterpretation and review of laboratory resultsAbnormalNOWY HealthcareLYMPHOCYTES ABSOLUTE AUTO3.2 NOMS HealthcareLymphocytes/100 WBC (Bld)25.1 %20.5 - 60.0 %NOMCass Medical CenterMCH (RBC) [Entitic mass]29.2 pg26.7 - 34.0 pgNONevada Regional Medical CenterMCHC (RBC) [Mass/Vol] 31.6 g/dL29.9 - 35.2 g/dLPike County Memorial HospitalMCV (RBC) [Entitic vol]92.2 fL81.0 - 99.0 fLNOWY HealthcareMONOCYTES ABSOLUTE AUTO0.7NOWY HealthcareMonocytes/100 WBC (Bld)5.2 %1.7 - 12.0 %NOMS HealthcareNEUTROPHILS ABSOLUTE AUTO8.6HighNOWY HealthcareNeutrophils/100 WBC (Bld)67 %43.0 - 75.0 %NOMS HealthcarePlatelet mean volume (Bld) [Entitic vol]12.8 fL9.5 - 13.5 fLNONevada Regional Medical CenterTBH EO #0.2NOMS HealthcareTBH QJU726XyzYJDZ HealthcareTB RBC5.52HighNOMS HealthcareTBH WBC12.8 HighNOWY HealthcareCLINISYNCNNORMAN REGIONAL [facility] HealthcareOffice Visiton 96-84-4775Txfule-up [id number] Mitzi Macias 1970 F Date Provider Department Center 08/08/2024 [id number], SAMTROY [facility] Family History Problem Relation Age of Onset Heart attack Paternal Grandmother Family Status - Relation Status Age at Paternal Grandmother Level of Service:93464 ID OFFICE/OUTPATIENT ESTABLISHED MOD MDM 30 MIN Reason for Visit and Comments: Congestive Heart Failure [127] - Denies chest pain, SOB, and palpitations. Hypertension [819328] Hyperlipidemia [182] LVH [Other] Edema [[id number]] - Denies worsening edema. She sees wound care for RLE ulcer. She was seeing the vein specialists here in town but they are moving to [place] in a few weeks.[facility] CenterProvider Letteron 52-07-7662Rrptlwye LetterProvider Letter June 11, 2024 MITZI MACIAS [address] [place] [id number] : 1970 To Whom It May Concern, Please excuse above patient from work. Date of Illness: From: 06/11/24 8:30am To: 06/11/24 12:30pm Comments: _Brian Macias was with his for her doctor's appointment. Sincerely, Andra Forrester, Surgical SchedulerNormOhioHealthUrology Office/Clinic Noteon 05-80-6111Iriftjq Office/Clinic NoteUrology Office/Clinic Note Chief Complaint 18 mth HPI Staff 53 yo here 18 month f/u CT for adrenal mass. CT SCAN 05/12/24-[facility] Previous DX: adrenal mass, kidney stone, [...] Urology [address], [place] [address]- Additional Instructions: [address] AP [...] TIDAC potassium chloride 10 (more content not included)...[facility] Memorial HospitalComment on above:Result Comment: Electronically Signed By: Elbert ARAUZ MD\.br\Date and Time Signed: 06/11/24 10:55 EST\.br\Electronically Co- Signed By: Maria Elena Negrete\.br\Date and Time Co-Signed: 06/11/24 10:53 EST Glucose (Bld) [Mass/Vol]Ordered By: Mica Sauceda on 90-05-6993Vsoekmr Blood, VCR861 mg/dLNOMS HealthcareLaboratory - Hematology and Cell countson 05-27-2024 HbA1c (Bld) [Mass fraction]9.2 %NOMS HealthcareNo Panel InformationOrdered By: Mica Sauceda on 77-74-9157IIJV HealthcareCT ABDOMEN PELVIS W CONon 05-12-2024 [place] [address] CT Scan Report Signed Patient: MITZI MACIAS MR#: [id number] : 1970 Acct:[id number] Age/Sex: 53 / F ADM Date: 05/12/24 Loc: CT Attending Dr: Gaviota MAYERS Ordering Physician: Gaviota Adames Date of Service: 05/12/24 Procedure(s): CT abdomen pelvis w con Accession Number(s): [id number] cc: Mckayla Blas NP [place] [address] Patient Name: MITZI MACIAS MRN: [id number] date: 1970 Sex: F Assigned Patient Location: CT Current Patient Location: Accession/Order Number: [id number] Exam Date: 05/12/2024 11:15 Report Date: 05/12/2024 [...] Signed By: 05/12/24 1419 DD/ 1416 TD/TT: Anesthesiology Resident:SONNYHRadiology, Radiologist, - 05/12/2024 [place] [address] CT Scan Report Signed Patient: MITZI MACIAS MR#: [id number] : 1970 Acct:[id number] Age/Sex: 53 / F ADM Date: 05/12/24 Loc: CT Attending Dr: Gaviota MAYERS Ordering Physician: Gaviota Adames Date of Service: 05/12/24 Procedure(s): CT abdomen pelvis w con Accession Number(s): [id number] cc: Mckayla Blas NP [facility] [place] [id number] Patient Name: MITZI MACIAS MRN: [id number] date: 1970 Sex: F Assigned Patient Location: CT Current Patient Location: Accession/Order Number: [id number] Exam Date: 05/12/2024 11:15 Report Date: 05/12/2024 [...] Signed By: 05/12/24 1419 DD/ 15 TD/TT: Anesthesiology Resident: [facility]PITALHenna HealthcareRadiology Study observation (narrative)[facility] PELVIS W CONOrdered By: Radiologist Radiology on [id number] [facility] Work Phone: LUMBAR SPINE WO CONon [phone] [phone] Magnetic Resonance Report Signed Patient: MITZI MACIAS MR#: [id number] : 1970 Acct:[id number] Age/Sex: 53 / F ADM Date: 05/12/24 Loc: MRI Attending Dr: Angela Cochran NP Ordering Physician: Angela Cochran NP Date of Service: 05/12/24 Procedure(s): MR lumbar spine wo con Accession Number(s): [id number] cc: Mckayla Blas BUTT SAWYER; Angela Cochran NP [address] [address] Patient Name: MITZI MACIAS MRN: [id number] date: 1970 Sex: F Assigned Patient Location: MRI Current Patient Location: CT Accession/Order Number: [id number] Exam Date: 05/12/2024 09:21 Report Date: 05/12/2024 [...] Signed By: 05/12/24 1443 DD/ 144 TD/TT: Anesthesiology Resident:TBHRadiology, Radiologist, MD - 05/12/2024 [place] [address] Magnetic Resonance Report Signed Patient: MITZI MACIAS MR#: [id number] : 1970 Acct:[id number] Age/Sex: 53 / F ADM Date: 05/12/24 Loc: MRI Attending Dr: Angela Cochran NP Ordering Physician: Angela Cochran NP Date of Service: 05/12/24 Procedure(s): MR lumbar spine wo con Accession Number(s): [id number] cc: Mckayla Blas NP; Angela Cochran NP [address] [place] [id number] Patient Name: MITZI MACIAS MRN: [id number] date: 1970 Sex: F Assigned Patient Location: MRI Current Patient Location: CT Accession/Order Number: [id number] Exam Date: 05/12/2024 09:21 Report Date: 05/12/2024 [...] M.D. Signed By: 05/12/241442 DD/ 40 TD/TT: Anesthesiology Resident: CARLOS HealthcareRadiology Study observation (narrative)[facility] LUMBAR SPINE WO CONOrdered By: Radiologist Radiology on 32-35-7076[facility] Work Phone: [facility] CREATININEon 74-47-9760Uludtqenfp [Mass/Vol]0.92 mg/dL0.55 - 1.02 mg/dLNOMS HealthcareGFR/1.73 sq M.predicted CKD-EPI (S/P/Bld) [Vol rate/Area]>60>=60 mL/min/1.73m 2NOMS HealthcareTBH EGFR-NON AF GUINEAN>60 >=60 mL/min/1.73m 2NOMS HealthcareCLINISYNCNOMS HealthcareSEGMENTAL BLOOD PRESSUREon 25-87-[place]37[place], [place] [address] Vein Report Signed Patient: MITZI MACIAS MR#: [id number] : 1970 Acct:[id number] Age/Sex: 53 / F ADM Date: 04/24/24 Loc: Attending Dr: Comfort Pretty Ordering Physician: Comfort Pretty Date of Service: 04/24/24 Procedure(s): SEGMENTAL PRESSURES Accession Number(s): [id number] cc: Mckayla Blas BUTT SAWYER; Comfort Pretty [place] [address] Patient Name: MITZI MACIAS MRN: [id number] date: 1970 Sex: F Assigned Patient Location: Current Patient Location: Accession/Order Number: [id number] Exam Date: 04/24/2024 10:25 Report Date: 04/24/2024 11:20 At the request of: COMFORT PRETTY Procedure: SEGMENTAL PRESSURES EXAM: SEGMENTAL PRESSURES HISTORY: R09.89 COMPARISON: None. FINDINGS: Segmental pressures presented as follows (right, left) in mmHg. 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, 91 1st Toe: 124, 142 ISABELLE: [...] Signed By: 04/24/24 1123 DD/ 19 TD/TT: Anesthesiology Resident:SONNYHRadiology, Radiologist, - 04/24/2024 [place] [address] Vein Report Signed Patient: MITZI MACIAS MR#: [id number] : 1970 Acct:[id number] Age/Sex: 53 / F ADM Date: 04/24/24 Loc: VC Attending Dr: Comfort Pretty Ordering Physician: Comfort Pertty Date of Service: 04/24/24 Procedure(s): VC SEGMENTAL PRESSURES Accession Number(s): [id number] cc: Mckayla Blas BUTT SAWYER; Comfort Pretty [address] [place] [address] Patient Name: MITZI MACIAS MRN: [facility]:[id number] date: 1970 Sex: F Assigned Patient Location: Current Patient Location: Accession/Order Number: [id number] Exam Date: 04/24/2024 10:25 Report Date: 04/24/2024 11:20 At the request of: COMFORT PRETTY Procedure: VC SEGMENTAL PRESSURES EXAM: VC SEGMENTAL PRESSURES HISTORY: R09.89 COMPARISON: None. FINDINGS: Segmental pressures presented as follows (right, left) in mmHg. 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, 91 1st Toe: 124, 142 ISABELLE: [...] Signed By: 04/24/24 1123 DD/ 1120 TD/TT: Anesthesiology Resident: CARLOS HealthcareRadiology Study observation (narrative)[facility] HealthcareSEGMENTAL BLOOD PRESSUREOrdered By: Radiologist Radiology on 50-96-7795[facility] Work Phone: mm TOMOSYNTHESIS SCREENING BIon 08-31-8770[place], [place] [address] Mammography Report Signed Patient: MITZI MACIAS MR#: [id number] : 1970 Acct:[id number] Age/Sex: 53 / F ADM Date: 12/13/23 Loc: MAMMO Attending Dr: Mckayla Blas NP Ordering Physician: Mckayla Blas NP Results: Date of Service: 12/13/23 Follow Up: Procedure(s): MM tomosynthesis screening BI Accession Number(s): [id number] cc: Mckayla Blas NP Patient Name: MITZI MACIAS MR#: [id number] : 1970 Exam Date: 12/13/2023 Ordering Doctor: [...] [facility] BREAST COMPOSITION: The breasts are almost [...] Signed By: 12/14/23 1122 DD/ 1121 TD/TT: Anesthesiology Resident:TBHRadiology, Radiologist, MD - 12/14/2023 [place] [address] Mammography Report Signed Patient: MITZI MACIAS MR#: [id number] : 1970 Acct:[id number] Age/Sex: 53 / F ADM Date: 12/13/23 Loc: MAMMO Attending Dr: Mckayla Blas NP Ordering Physician: Mckayla Blas NP Results: Date of Service: 12/13/23 Follow Up: Procedure(s): MM tomosynthesis screening BI Accession Number(s): [id number] cc: Mckayla Blas NP Patient Name: MITZI MACIAS MR#: [id number] : 1970 Exam Date: 12/13/2023 Ordering Doctor: [...] [facility] BREAST COMPOSITION: The breasts are almost [...] PALPABLE LUMP SHOULD BE BIOPSIED. Dictated by: Patrciia Veloz M.D. on 12/14/2023 at 11:18 Approved by: Patricai Veloz M.D. on 12/14/2023 at 11:21 Dictated By: Patricia Veloz M.D. Signed By: 12/14/23 1122 DD/ 1121 TD/TT: Anesthesiology [facility]ident[facility] (n[facility]ative)[facility] TOMOSYNTHESIS SCREENING BIOrdered By: Radiologist Radiology on 15-47-0547RJYTPike County Memorial Hospital Work Phone: bLOOD CULTURE 1on 33-81-9751WEIGA CULTURE 1 Blood Culture 1 NG5D NO GROWTH AT 5 DAYS.^NO GROWTH AT 5 DAYS. [facility] HospitalBLOOD CULTURE 2on 50-67-4226QBQMD CULTURE 2 Blood Culture 2 NG5D NO GROWTH AT 5 DAYS.^NO GROWTH AT 5 DAYS. [facility] HospitalNo Panel Informationon 30-81-3127EOXYDFNHFERSG HealthcareECG 12-LEADon 18-22-1865[place] [address] Electrocardiograph Report Signed Patient: MITZI MACIAS MR#: [id number] : 1970 Acct:[id number] Age/Sex: 53 / F ADM Date: 08/31/23 Loc: [place] 214-[address]: Jacqueline Becerra D.O. 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 Signed By: 09/02/23 0732 DD/ 180 TD/TT: Anesthesiology Resident:TBHRadiology, Radiologist, - 09/02/2023 [place] [address] Electrocardiograph Report Signed Patient: MITZI MACIAS MR#: [id number] : 1970 Acct:[id number] Age/Sex: 53 / F ADM Date: 08/31/23 Loc: MS 214-[address]: Jacqueline Becerra D.O. 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 Signed By: 09/02/23 0732 DD/ 1808 TD/TT: Anesthesiology Resident: CARLOS [facility] 12-LEADOrdered By: Radiologist Radiology on 79-36-1756RMDC [facility] Work Phone: EC 12-LEADon 59-12-3208Bvthgtaru Study observation (narrative)CARLOS [facility] AUTO DIFFon 00-67-4523ZQID #0.0 103/ulNormal 0.0-0.1The [facility] HospitalComment on above:Performed By: #### CBC #### [facility] [address] [place] [address] Dr. Ashlie HillsBasophils/100 WBC (Bld)0.1 %Critically low0.2-2.0The [facility] HospitalComment on above:Performed By: #### CBC #### [facility] [address] [place] [address] Dr. Ashlie Mcintosh #0.0 103/ulNormal0.0-0.7The [facility] HospitalComment on above: Performed By: #### CBC #### [facility] [address] [place] [address] Dr. Ashlie Grahamosinophils/100 WBC (Bld)0.0 %Critically low0.9-7.0The [facility] HospitalComment on above:Performed By: #### CBC #### [facility] [address] [place] [address] Dr. Ashlie Grahamrythrocyte distribution width (RBC) [Ratio]14.9 %Mytywr10.0-15.0 The [facility] HospitalComment on above:Performed By: #### CBC #### [facility] [address] [place] [address] Dr. Ashlie HillsHematocrit (Bld) [Volume fraction]46.2 %Wremrc06.0-48.0[facility] HospitalComment on above:Performed By: #### CBC #### [facility] [address] [place] [address] Dr. Ashlie HillsHemoglobin (Bld) [Mass/Vol]14.7 g/xQXfngnh32.0-16.0The [facility] HospitalComment on above:Performed By: #### CBC #### [facility] [address] [place] [address] Dr. Ashlie Hunter #0.06 10e3/ulCritically high0.00-0.03The [facility] Comment on above:Performed By: #### CBC #### [facility] [address] [place] [address] Dr. Ashlie Hunter %0.4 %Normal0.0-0.5The [facility] HospitalComment on above: Performed By: #### CBC #### [facility] [address] [place] [address] Dr. Ashlie Swenson #1.3 103/ulNormal1.2-3.8The [facility] HospitalComment on above:Performed By: #### CBC #### [facility] [address] [place] [address] Dr. Ashlie Dsouzahocytes/100 WBC (Bld)9.4 %Critically low20.5-60.0The [facility] HospitalComment on above:Performed By: #### CBC #### [facility] [address] [place] [address] Dr. Ashlie GhoshUAL DIFF REQNONormalThe [facility] HospitalComment on above: Performed By: #### CBC #### [facility] [address] [place] [address] Dr. Ashlie Mckeon (RBC) [Entitic mass]28.4 yvLpgdzs90.7-34.0The [facility] HospitalComment on above:Performed By: #### CBC #### [facility] [address] [place] [address] Dr. Ashlie Mckeon (RBC) [Mass/Vol]31.8 g/jWDueolr38.9-35.2The [facility] HospitalComment on above:Performed By: #### CBC #### [facility] [address] [place] [address] Dr. Ashlie MckeonV (RBC) [Entitic vol]89.4 nFNhduhz38.0-99.0The [facility] HospitalComment on above:Performed By: #### CBC #### [facility] [address] [place] [address] Dr. Ashlie Killian #0.5 103/ulNormal0.3-0.8The [facility] HospitalComment on above:Performed By: #### CBC #### [facility] [address] [place] [address] Dr. Ashlie Palominoocytes/100 WBC (Bld)3.4 %Normal1.7-12.0The [facility] Comment on above:Performed By: #### CBC #### [facility] [address] [place] [address] Dr. Ashlie Olsen #11.8 103/ulCritically high1.4-6.5The [facility] Comment on above:Performed By: #### CBC #### [facility] [address] [place] [address] Dr. Ashlie Quiñonesutrophils/100 WBC (Bld)86.7 %Critically high43.0-75.0The [facility] HospitalComment on above:Performed By: #### CBC #### [facility] [address] [place] [address] Dr. Ashlie Lantigualet mean volume (Bld) [Entitic vol]12.6 fLNormal9.5-13.5The [facility] HospitalComment on above:Performed By: #### CBC #### [facility] [address] [place] [address] Dr. Ashlie HillsPLT133 103/ulCritically geh927-583Mtj [facility] HospitalComment on above:Performed By: #### CBC #### [facility] [address] [place] [address] Dr. Ashlie HillsRBC5.17 106/ulNormal4.20-5.40The [facility] HospitalComment on above:Performed By: #### CBC #### [facility] [address] [place] [address] [address] Ashlie HillsWBC13.6 103/ulCritically high4.0-11.0The [facility] HospitalComment on above:Performed By: #### CBC #### [facility] [address] [place] [address] [address] Ashlie HillsMAGNESIUMon 05-97-3264Pgkdfktub [Mass/Vol]2.2 mg/dLNormal1.8-2.4 The [facility] HospitalComment on above:Performed By: #### INFLUAB #### [facility] [address] [place] [address] [address] Ashlie HillsPOINT OF CARE GLUCOSEon 19-68-4814Zapgkme [Mass/Vol]340 mg/dL Critically gamu39-377Njh [facility] HospitalComment on above:Performed By: #### POCGLUC #### [facility] [address] [place] [address] Dr. Ashlie HillsGlucose [Mass/Vol]276 mg/dLCritically wbxd90-326Hnb [facility] HospitalComment on above:Performed By: #### CBC #### [facility] [address] [place] [address] [address] Ashlie HillsGlucose [Mass/Vol]333 mg/dLCritically bdxf79-034Rif [facility] HospitalComment on above:Performed By: #### CBC #### [facility] [address] [place] [address] Dr. Ashlie HillsPROF CHEM 8 (BAS METB)on 81-42-9592Hadwm gap [Moles/Vol]10.9 mmol/LNormalThe [facility] HospitalComment on above:Performed By: #### INFLUAB #### [facility] [address] [place] [address] Dr. Ashlie HillsCalcium [Mass/Vol]9.3 mg/dLNormal8.5-10.1The [facility] Comment on above:Performed By: #### INFLUAB #### [facility] [address] [place] [address] [address] Ashlie HillsChloride [Moles/Vol]103 mmol/RNuyvca86-022Ovc [facility] Comment on above:Performed By: #### INFLUAB #### [facility] [address] [place] [address] [address] Ashlie HillsCO2 [Moles/Vol]31.2 mmol/EHjnqeu33.0-32.0The [facility] Comment on above:Performed By: #### INFLUAB #### [facility] [address] [place] [address] [address] Ashlie HillsCreatinine [Mass/Vol]0.96 mg/dLNormal0.55-1.02[facility] HospitalComment on above:Performed By: #### INFLUAB #### [facility] [address] [place] [address] [address] Ashlie GrahamGFR-AF GUINEAN>60Normal>=60The [facility] HospitalComment on above:Performed By: #### INFLUAB #### [facility] [address] [place] [address] [address] Ashlie GrahamGFR-NON AF GUINEAN>60Normal>=60The [facility] HospitalComment on above:Performed By: #### INFLUAB #### [facility] [address] [place] [address] [address] Ashlie HillsGlucose [Mass/Vol]288 mg/dLCritically gdtv01-667Bet [facility] HospitalComment on above:Performed By: #### INFLUAB #### [facility] [address] [place] [address] [address] Ashlie HillsPotassium [Moles/Vol]5.1 mmol/LNormal3.5-5.1The [facility] Comment on above:Performed By: #### INFLUAB #### [facility] [address] [place] [address] [address] Ashlie HillsSodium [Moles/Vol]140 mmol/JMmcmhj292-165Ifg [facility] Comment on above:Performed By: #### INFLUAB #### [facility] [address] [address] [address] Ashlie HillsUrea nitrogen [Mass/Vol]30.0 mg/dLCritically high7.0-18.0The [facility] HospitalComment on above:Performed By: #### INFLUAB #### [facility] [address] [place] [address] Dr. Ashlie HillsUrea nitrogen/Creatinine [Mass ratio]31.2 mg/mgNoalThMercy Health Fairfield HospitalComment on above:Performed By: #### INFLUAB #### [facility] [address] [place] [address] Dr. Ashlie VernonC AUTO DIFFon 72-86-6777MEIU #0.0 103/ulNormal0.0-0.1The [facility] Hospitalment on above:Performed By: #### CBC #### [facility] [address] [place] [address] Dr. Ashlie HillsBasophils/100 WBC (Bld)0.4 %Normal0.2-2.0[facility] on above:Performed By: #### CBC #### [facility] [address] [place] [address] Dr. Ashlie Mcintosh #0.0 103/ulNormal0.0-0.7The [facility] HospitalComment on above: Performed By: #### CBC #### [facility] [address] [place] [address] Dr. Ashlie Grahamosinophils/100 WBC (Bld)0.0 %Critically low0.9-7.0The [facility] Systemment on above:Performed By: #### CBC #### [facility] [address] [place] [address] Dr. Ashlie Grahamrythrocyte distribution width (RBC) [Ratio]14.8 %Eebeqg81.0-15.0 The [facility] Systemment on above:Performed By: #### CBC #### [facility] [address] [place] [address] Dr. Ashlie HillsHematocrit (Bld) [Volume fraction]49.9 %Critically high36.0-48.0 [facility] HospitalComment on above:Performed By: #### CBC #### [facility] [address] [place] [address] Dr. Ashlie HillsHemoglobin (Bld) [Mass/Vol]15.7 g/iZXwbwrx11.0-16.0The [facility] HospitalComment on above:Performed By: #### CBC #### [facility] [address] [place] [address] Dr. Ashlie Hunter #0.04 10e3/ulCritically high0.00-0.03The [facility] Comment on above:Performed By: #### CBC #### [facility] [address] [place] [address] Dr. Ashlie Hunter %0.5 %Normal0.0-0.5The [facility] HospitalComment on above: Performed By: #### CBC #### [facility] [address] [place] [address] Dr. Ashlie Swenson #1.1 103/ulCritically low1.2-3.8The [facility] Comment on above:Performed By: #### CBC #### [facility] [address] [place] [address] Dr. Ashlie Dsouzahocytes/100 WBC (Bld)12.7 %Critically low20.5-60.0The [facility] HospitalComment on above:Performed By: #### CBC #### [facility] [address] [place] [address] Dr. Ashlie GhoshUAL DIFF REQNONormalThe [facility] HospitalComment on above: Performed By: #### CBC #### [facility] [address] [place] [address] Dr. Ashlie Mckeon (RBC) [Entitic mass]28.1 voOfzris30.7-34.0The [facility] HospitalComment on above:Performed By: #### CBC #### [facility] [address] [place] [address] Dr. Ashlie Mckeon (RBC) [Mass/Vol]31.5 g/wKSkwgty67.9-35.2The [facility] HospitalComment on above:Performed By: #### CBC #### [facility] [address] [place] [address] Dr. Ashlie MckeonV (RBC) [Entitic vol]89.3 oTMjptvp13.0-99.0The [facility] HospitalComment on above:Performed By: #### CBC #### [facility] [address] [place] [address] [address] Ashlie Killian #0.1 103/ulCritically low0.3-0.8The [facility] HospitalComment on above:Performed By: #### CBC #### [facility] [address] [place] [address] [address] Ashlie Palominoocytes/100 WBC (Bld)1.3 %Critically low1.7-12.0The [facility] HospitalComment on above:Performed By: #### CBC #### [facility] [address] [place] [address] Dr. Ashlie Olsen #7.2 103/ulCritically high1.4-6.5The [facility] Comment on above:Performed By: #### CBC #### [facility] [address] [place] [address] Dr. Ashlie Quiñonesutrophils/100 WBC (Bld)85.1 %Critically high43.0-75.0The [facility] HospitalComment on above:Performed By: #### CBC #### [facility] [address] [place] [address] Dr. Ashlie Lantigualet mean volume (Bld) [Entitic vol]12.2 fLNormal9.5-13.5The [facility] HospitalComment on above:Performed By: #### CBC #### [facility] [address] [place] [address] Dr. Ashlie HillsPLT116 103/ulCritically shp560-857Ate [facility] HospitalComment on above:Performed By: #### CBC #### [facility] [address] [place] [address] Dr. Ashlie HillsRBC5.59 106/ulCritically high4.20-5.40The [facility] Comment on above:Performed By: #### CBC #### [facility] [address] [place] [address] [address] [address] Ashlie HillsWBC8.5 103/ulNormal4.0-11.0The [facility] HospitalComment on above: Performed By: #### CBC #### [facility] [id number] Ashlie Harrison CHEST WO W CONon 49-80-9052DGE CHEST WO W CONEXAMINATION: CTA CHEST WO [...] authenticated by: HATTIE GOFF Date: 2022-12-05 01:52NormalThe [facility] HospitalMAGNESIUMon 02-33-4342Rzmduagqn [Mass/Vol]2.1 mg/dLNormal 1.8-2.4The [facility] HospitalComment on above:Performed By: #### POCGLUC #### [facility] [address] [address] [address] Ashlie HillsPOINT OF CARE GLUCOSEon 00-82-3813Wiqrmkr [Mass/Vol]293 mg/dL Critically wcqd96-676Ktd [facility] HospitalComment on above:Performed By: #### POCGLUC #### [facility] [address] [address] [address] Ashlie HillsGlucose [Mass/Vol]269 mg/dLCritically arfy96-607Ttq [facility] HospitalComment on above:Performed By: #### POCGLUC #### [facility] [address] [address] [address] Ashlie HillsGlucose [Mass/Vol]223 mg/dLCritically ygle45-160Emf [facility] HospitalComment on above:Performed By: #### CVDAGS #### [facility] [address] [place] [address] Dr. Ashlie HillsPROF CHEM 8 (BAS METB)on 80-58-1048Nzmkd gap [Moles/Vol]11.6 mmol/LNormalThe [facility] HospitalComment on above:Performed By: #### POCGLUC #### [facility] [address] [address] [address] Ashlie HillsCalcium [Mass/Vol]9.2 mg/dLNormal8.5-10.1The [facility] Comment on above:Performed By: #### POCGLUC #### [facility] [address] [address] [address] Ashlie HillsChloride [Moles/Vol]102 mmol/XNlyrll21-627Dsb [facility] Comment on above:Performed By: #### POCGLUC #### [facility] [address] [address] [address] Ashlie HillsCO2 [Moles/Vol]28.7 mmol/ALoycmf34.0-32.0The [facility] Comment on above:Performed By: #### POCGLUC #### [facility] [address] [place] [address] Dr. Ashlie HillsCreatinine [Mass/Vol]1.04 mg/dLCritically high0.55-1.02The [facility] HospitalComment on above:Performed By: #### POCGLUC #### [facility] [address] [address] [address] Ashlie GrahamGFR-AF GUINEAN>60Normal>=60The [facility] HospitalComment on above:Performed By: #### POCGLUC #### [facility] [address] [address] [address] Ashlie GrahamGFR-NON AF TLAGYYMC94 mL/min/1.70q4Agnwzugcfu low>=60The [facility] HospitalComment on above:Performed By: #### POCGLUC #### [facility] [address] [address] Dr. Ashlie HillsGlucose [Mass/Vol]231 mg/dLCritically kzdn00-984Lld [facility] on above:Performed By: #### POCGLUC #### [facility] [address] [address] [address] Ashlie HillsPotassium [Moles/Vol]4.3 mmol/LNormal3.5-5.1The [facility] Comment on above:Performed By: #### POCGLUC #### [facility] [address] [address] [address] Ashlie HillsSodium [Moles/Vol]138 mmol/TNoeecl669-732Vcf [facility] Comment on above:Performed By: #### POCGLUC #### [facility] [address] [address] [address] Ashlie HillsUrea nitrogen [Mass/Vol]17.0 mg/dLNormal7.0-18.0The [facility] on above:Performed By: #### POCGLUC #### [facility] [address] [address] [address] Ashlie HillsUrea nitrogen/Creatinine [Mass ratio]16.3 mg/mgNormalThe [facility] HospitalComment on above:Performed By: #### POCGLUC #### [facility] [address] [address] [address] Ashlie HillsRESPIRATORY PANEL PLUSon [id number] detectedNormal NOT DETECTEDThe [facility] HospitalComment on above:Performed By: #### CVDAGS #### [facility] [address] [address] [address] Ashlie Gandhi ParapertusisNot detectedNormalNOT DETECTEDThe [facility] HospitalComment on above:Performed By: #### CVDAGS #### [facility] [address] [address] [address] Ashlie Gandhi PertussisNot detectedNormalNOT DETECTEDThe [facility] Comment on above:Performed By: #### CVDAGS #### [facility] [address] [address] [address] Ashlie HillsChlamydia PneumoniaeNot detectedNormalNOT DETECTEDThe [facility] HospitalComment on above:Performed By: #### CVDAGS #### [facility] [address] [address] [address] Ashlie HillsCoronavirus 229ENot detectedNormalNOT DETECTEDThe [facility] HospitalComment on above:Performed By: #### CVDAGS #### [facility] [address] [address] [address] Ashlie HillsCoronavirus VWO1Cje detectedNormalNOT DETECTEDThe [facility] HospitalComment on above:Performed By: #### CVDAGS #### [facility] [address] [address] [address] Dailey ChangCoronavirus CW48Uof detectedNormalNOT DETECTEDThe [facility] HospitalComc.[facility] on above:Performed By: #### CVDAGS #### [facility] [address] [address] [address] Ashlie HillsCoronavirus BB38Fwh detectedNormalNOT DETECTEDThe [facility] HospitalComc.[facility] on above:Performed By: #### CVDAGS #### [facility] [address] [address] [address] Ashlie Lockhart A H1Not detectedNormalNOT DETECTEDThe [facility] Comment on above:Performed By: #### CVDAGS #### [facility] [address] [address] [address] Ashlie Centeno H1 2009Not detectedNormalNOT DETECTEDThe [facility] HospitalComment on above:Performed By: #### CVDAGS #### [facility] [address] [address] [address] Ashlie Centeno H3Not detectedNormalNOT DETECTEDThe [facility] Comment on above:Performed By: #### CVDAGS #### [facility] [address] [address] [address] Ashlie Lockhart BNot detectedNormalNOT DETECTEDThe [facility] Comment on above:Performed By: #### CVDAGS #### [facility] [address] [address] [address] Ashlie ChávezapneumovirusNot detectedNormalNOT DETECTEDThe [facility] HospitalComc.[facility] on above:Performed By: #### CVDAGS #### [facility] [address] [address] [address] Ashlie Jimenez. PneumoniaeNot detectedNormalNOT DETECTEDThe [facility] HospitalComment on above:Performed By: #### CVDAGS #### [facility] [address] [address] [address] Ashlie Mendieta 1Not detectedNormalNOT DETECTEDThe [facility] HospitalComc.[facility] on above:Performed By: #### CVDAGS #### [facility] [address] [address] [address] Ashlie Mendieta 2Not detectedNormalNOT DETECTEDThe [facility] HospitalComment on above:Performed By: #### CVDAGS #### [facility] [address] [address] [address] Ashlie Mendieta 3DetectedAbnormalNOT DETECTEDThe [facility] Comment on above:Performed By: #### CVDAGS #### [facility] [address] [address] [address] Ashlie Mendieta 4Not detectedNormalNOT DETECTEDThe [facility] HospitalComc.[facility] on above:Performed By: #### CVDAGS #### [facility] [address] [place] [address] Dr. Ashlie HillsRhino/EnterovirusNot detectedNormalNOT DETECTEDThe [facility] HospitalComment on above:Performed By: #### CVDAGS #### [facility] [address] [place] [address] Dr. Ashlie Gallagher Header 1RESPIRATORY PANEL: VIRUSESZanesville City Hospital Comment on above:Performed By: #### CVDAGS #### [facility] [address] [address] [address] Ashlie Gallagher Header 2RESPIRATORY PANEL: BACTERIAZanesville City HospitalComment on above:Performed By: #### CVDAGS #### [facility] [address] [place] [address] Dr. Ashlie GivensNot detectedNormalNOT DETECTEDThe [facility] HospitalComment on above:Performed By: #### CVDAGS #### [facility] [address] [place] [address] Dr. Ashlie Finney-CoV-2 (COVID-19) RNA MADDY+probe Ql (Unsp spec)Not detected NormalNOT DETECTEDThe [facility] HospitalComment on above:Performed By: #### CVDAGS #### [facility] [address] [place] [address] Dr. Ashlie HillsXR CHEST 1 Von [id number] CHEST 1 VEXAMINATION: XR CHEST 1 V HISTORY: Shortness of breath COMPARISON: Chest x-ray 08/09/2021 TECHNIQUE: Portable chest FINDINGS: The lung parenchyma is free of consolidation or infiltrate. No pneumothorax or pleural effusion. The cardiac, mediastinal and hilar contours are normal. The visualized osseous structures exhibit no gross abnormality. IMPRESSION: No acute cardiopulmonary abnormality. Electronically authenticated by: MARYANNE POWER Date: 2022-12-04 22:23Zanesville City HospitalBLOOD GASES BTYon MODEROOMercy Health Lorain HospitalComment on above:Performed By: #### CBC #### [facility] [address] [place] [address] Dr. Ashlie Duran TESTPositiveGrand Lake Joint Township District Memorial Hospitalment on above: Performed By: #### CBC #### [facility] [address] [address] [address] Ashlie Crenshaw excess Calc (Bld) [Moles/Vol]5.4 mmol/LCritically high -2.0-2.0The [facility] on above:Performed By: #### CBC #### [facility] [address] [address] [address] Ashlie SkyP [facility] HospitalComc.[facility] on above: Performed By: #### CBC #### [facility] [address] [address] [address] Ash[facility] HillsCPMarion Hospital on above:Performed By: #### CBC #### [facility] [address] [address] [address] Ashlie HillsHxmreMAU2XlucqoWiw73 Fitzgerald StreetComc.s. [facility] on above:Performed By: #### CBC #### [facility] [address] [address] [address] Ashile HillsHCO3 (Bld) [Moles/Vol]30.8 mmol/LCritically high22.0-26.0The [facility] on above:Performed By: #### CBC #### [facility] [address] [address] [address] Ashlie HillsLPMNormalThe [facility] HospitalComc.[facility]. [facility] on above:Performed By: #### CBC #### [facility] [address] [address] [address] Ashlie HackettUTE VOLUMEZanesville City HospitalComc.s. [facility] on above: Performed By: #### CBC #### [facility] [address] [address] [address] Ashlie HillsOxygen (Bld) [Partial pressure]46.3 mm[Hg]Critically low 80.0-100.0[facility] on above:Performed By: #### CBC #### [facility] [address] [place] [address] Dr. Yilan ChangOxygen saturation in Blood83.9 %Critically low95.0-100.0The [facility] HospitalComment on above:Performed By: #### CBC #### [facility] [address] [address] [address] Ashlie HillsPCO254.2 mmHgCritically high35.0-45.0The [facility] on above:Performed By: #### CBC #### [facility] [address] [address] [address] Ashlie HillsHighland District HospitalComc.s. [facility] on above:Performed By: #### CBC #### [facility] [address] [address] [address] Ashlie Knapp (Bld)7.363 [pH]Normal7.350-7.450The [facility] on above:Performed By: #### CBC #### [facility] [address] [address] [address] Ashlie VerasTriHealth McCullough-Hyde Memorial HospitalComc.s. [facility] on above:Performed By: #### CBC #### [facility] [address] [address] [address] [facility] on above:Performed By: #### CBC #### [facility] [address] [place] [address] Dr. Ashlie Avendano [facility] HospitalCom[facility] on above: Performed By: #### CBC #### [facility] [address] [place] [address] Dr. Ashlie GoldTriHealth McCullough-Hyde Memorial HospitalComc.s. [facility] on above:Performed By: #### CBC #### [facility] [address] [address] [address] Ashlie HillsWadsworth-Rittman HospitalComc.s. [facility] on above:Performed By: #### CBC #### [facility] [address] [place] [address] Dr. Ashlie HillsMcKitrick HospitalComc.s. [facility] on above:Performed By: #### CBC #### [facility] [address] [address] [address] Ashlie Perry [id number] peptide B (Bld) [Mass/Vol]76.0 pg/mL Normal<=900.0The [facility] HospitalComment on above:Performed By: #### POCGLUC #### [facility] [address] [address] [address] Ashlie Chinchilla AUTO DIFFon [id number] #0.1 103/ulNormal0.0-0.1The [facility] HospitalComment on above:Performed By: #### CBC #### [facility] [address] [address] [address] Ashlie HillsBasophils/100 WBC (Bld)0.6 %Normal0.2-2.0[facility] Comment on above:Performed By: #### CBC #### [facility] [address] [address] [address] Ashlie Mcintosh #0.2 103/ulNormal0.0-0.7The [facility] HospitalComment on above: Performed By: #### CBC #### [facility] [address] [address] [address] Ashlie Grahamosinophils/100 WBC (Bld)1.9 %Normal0.9-7.0[facility] Comment on above:Performed By: #### CBC #### [facility] [address] [place] [address] Dr. Ashlie Grahamrythrocyte distribution width (RBC) [Ratio]15.0 %Hbfinc42.0-15.0 [facility] HospitalComment on above:Performed By: #### CBC #### [facility] [address] [address] [address] Ashlie HillsHematocrit (Bld) [Volume fraction]49.1 %Critically high36.0-48.0 [facility] HospitalComment on above:Performed By: #### CBC #### [facility] [address] [address] [address] Ashlie HillsHemoglobin (Bld) [Mass/Vol]15.6 g/iPBlkalu93.0-16.0The [facility] HospitalComment on above:Performed By: #### CBC #### [facility] [address] [place] [address] Dr. Ashlie Hunter #0.02 10e3/ulNormal0.00-0.03The [facility] HospitalComment on above:Performed By: #### CBC #### [facility] [address] [place] [address] Dr. Ashlie Hunter %0.2 %Normal0.0-0.5The [facility] HospitalComment on above: Performed By: #### CBC #### [facility] [address] [place] [address] Dr. Ashlie Swenson #2.8 103/ulNormal1.2-3.8The [facility] HospitalComment on above:Performed By: #### CBC #### [facility] [address] [place] [address] Dr. Ashlie Dsouzahocytes/100 WBC (Bld)29.9 %Rfmfud01.5-60.0The [facility] HospitalComment on above:Performed By: #### CBC #### [facility] [address] [place] [address] Dr. Ashlie Marie DIFF REQNONormalThe [facility] HospitalComment on above: Performed By: #### CBC #### [facility] [address] [place] [address] Dr. Ashlie Mckeon (RBC) [Entitic mass]28.5 alLeqkib26.7-34.0The [facility] HospitalComment on above:Performed By: #### CBC #### [facility] [address] [place] [address] Dr. Ashlie Mckeon (RBC) [Mass/Vol]31.8 g/jFVzwhdy13.9-35.2The [facility] HospitalComment on above:Performed By: #### CBC #### [facility] [address] [place] [address] Dr. Ashlie Mckeon (RBC) [Entitic vol]89.8 wEVlwsyc21.0-99.0The [facility] HospitalComment on above:Performed By: #### CBC #### [facility] [address] [place] [address] Dr. Ashlie Killian #1.0 103/ulCritically high0.3-0.8The [facility] Comment on above:Performed By: #### CBC #### [facility] [address] [place] [address] Dr. Ashlie Palominoocytes/100 WBC (Bld)10.6 %Normal1.7-12.0[facility] Comment on above:Performed By: #### CBC #### [facility] [address] [place] [address] Dr. Ashlie Olsen #5.3 103/ulNormal1.4-6.5The [facility] HospitalComment on above:Performed By: #### CBC #### [facility] [address] [place] [address] Dr. Ashlie Quiñonesutrophils/100 WBC (Bld)56.8 %Tdiilb59.0-75.0The [facility] HospitalComment on above:Performed By: #### CBC #### [facility] [address] [place] [address] Dr. Ashlie Crump mean volume (Bld) [Entitic vol]12.5 fLNormal9.5-13.5The [facility] HospitalComment on above:Performed By: #### CBC #### [facility] [address] [place] [address] Dr. Ashlie WhiteT109 103/ulCritically obi412-493Nrx [facility] HospitalComment on above:Performed By: #### CBC #### [facility] [address] [place] [address] Dr. Ashlie PruettC5.47 106/ulCritically high4.20-5.40The [facility] Comment on above:Performed By: #### CBC #### [facility] [address] [place] [address] Dr. Ashlie BhaktaBC9.4 103/ulNormal4.0-11.0The [facility] HospitalComment on above: Performed By: #### CBC #### [facility] [address] [place] [address] Dr. Ashlie Jones 14(COMP METB)on [id number] [Mass/Vol]2.9 g/dL Critically low3.4-5.0The [facility] HospitalComment on above:Performed By: #### CBC #### [facility] [address] [place] [address] Dr. Ashlie HillsAlbumin/Globulin [Mass ratio]0.6 {ratio}NormalThe [facility] HospitalComment on above:Performed By: #### CBC #### [facility] [address] [place] [address] Dr. Ashlie Gonzalez [Catalytic activity/Vol]64 U/FYaizpj40-062Caa [facility] HospitalComment on above:Performed By: #### CBC #### [facility] [address] [place] [address] Dr. Ashlie Chambers [Catalytic activity/Vol]16 U/YBgykbj31-99Nwr [facility] HospitalComment on above:Performed By: #### CBC #### [facility] [address] [place] [address] Dr. Ashlie Arce gap [Moles/Vol]9.6 mmol/LNormalThe [facility] HospitalComment on above:Performed By: #### CBC #### [facility] [address] [place] [address] Dr. Ashlie Tiwari [Catalytic activity/Vol]16 U/LSbdtpu54-52Ohn [facility] HospitalComment on above:Performed By: #### CBC #### [facility] [address] [place] [address] Dr. Ashlie HillsBilirubin [Mass/Vol]0.5 mg/dLNormal0.2-1.0The [facility] Comment on above:Performed By: #### CBC #### [facility] [address] [place] [address] Dr. Ashlie HillsCalcium [Mass/Vol]8.7 mg/dLNormal8.5-10.1The [facility] Comment on above:Performed By: #### CBC #### [facility] [address] [address] [address] Ashlie HillsChloride [Moles/Vol]103 mmol/OGnnycw68-484Zky [facility] Comment on above:Performed By: #### CBC #### [facility] [address] [address] [address] Ashlie HillsCO2 [Moles/Vol]30.7 mmol/CNnfhbu34.0-32.0The [facility] Comment on above:Performed By: #### CBC #### [facility] [address] [address] [address] Ashlie HillsCreatinine [Mass/Vol]0.96 mg/dLNormal0.55-1.02The [facility] HospitalComment on above:Performed By: #### CBC #### [facility] [address] [place] [address] Dr. Ashlie GrahamGFR-AF GUINEAN>60Normal>=60The [facility] HospitalComment on above:Performed By: #### CBC #### [facility] [address] [address] [address] Ashlie Delaney-NON AF GUINEAN>60Normal>=60The [facility] HospitalComment on above:Performed By: #### CBC #### [facility] [address] [address] [address] Ashlie HillsGlobulin (S) [Mass/Vol]4.7 g/dLNormalThe [facility] HospitalComment on above:Performed By: #### CBC #### [facility] [address] [address] [address] Ashlie HillsGlucose [Mass/Vol]170 mg/dLCritically mrtm21-600Gte [facility] HospitalComment on above:Performed By: #### CBC #### [facility] [address] [address] [address] Ashlie HillsPotassium [Moles/Vol]4.3 mmol/LNormal3.5-5.1The [facility] Comment on above:Performed By: #### CBC #### [facility] [address] [address] [address] Ashlie HillsProtein [Mass/Vol]7.6 g/dLNormal6.4-8.2The [facility] Comment on above:Performed By: #### CBC #### [facility] [address] [address] [address] Ashlie HillsSodium [Moles/Vol]139 mmol/BObzkum014-893Goy [facility] Comment on above:Performed By: #### CBC #### [facility] [address] [place] [address] Dr. Ashlie HillsUrea nitrogen [Mass/Vol]16.0 mg/dLNormal7.0-18.0The [facility] HospitalComment on above:Performed By: #### CBC #### [facility] [address] [place] [address] Dr. Ashlie HillsUrea nitrogen/Creatinine [Mass ratio]16.7 mg/mgNormalThe [facility] HospitalComment on above:Performed By: #### CBC #### [facility] [address] [place] [address] Dr. Ashlie HillsSYMPTOMATIC COVID-19 ANTIGENon [id number] StatementSEE BELOW NormalThe [facility] HospitalComment on above:Result Comment: This test has [...] sooner.Performed By: #### CVDAGS #### [facility] [address] [place] [address] Dr. Ashlie Finney-CoV-2 (COVID-19) RNA MADDY+probe Ql (Unsp spec)NegativeNormal NEGATIVETrumbull Memorial HospitalComment on above:Performed By: #### CVDAGS #### [facility] [address] [place] [address] Dr. Ashlie Alvarado, [facility] SENSITIVITYon 91-10-2055AGTBJY5.9 pg/mLNormal 4.0-51.3The [facility] HospitalComment on above:Result Comment: CUT-OFF POINTS HAVE BEEN ESTABLISHED BASED ON THE FOURTH UNIVERSAL DEFINITIONS OF MYOCARDIAL INFARCTION. THE UPPER REFERENCE LIMIT (URL) OF TROPONIN, DEFINED THE 99TH PERCENTILE OF cTnI DISTRIBUTION IN A REFERENCE POPULATION, HAS BEEN CONFIRMED THE DECISION THRESHOLD FOR ND DIAGNOSIS.Performed By: #### POCGLUC #### [facility] [address] [place] [address] Dr. Ashlie MarshallALBUMIN, RAND URon 76-96-5580hRMD21.8 mg/dLCritically high <=30.0The [facility] HospitalComment on above:Performed By: #### CVDAGS #### [facility] [address] [place] [address] Dr. Ashlie Vaughn RANDOM W/MICROSCOPICon [id number] SEENNormalNONE SEENTrumbull Memorial HospitalComment on above:Performed By: #### CVDAGS #### [facility] [address] [place] [address] Dr. Ashlie Galarzairubin Ql (U)NegativeNormalNEGATIVEThe [facility] Comment on above:Performed By: #### CVDAGS #### [facility] [address] [place] [address] Dr. Ashlie HillsCASTSEENAbnormalNONE SEENTrumbull Memorial HospitalComment on above: Performed By: #### CVDAGS #### [facility] [address] [place] [address] Dr. Ashlie HillsClarity (U)CLEARNormalCLEARThe [facility] HospitalComment on above: Performed By: #### CVDAGS #### [facility] [address] [address] [address] Ashlie Prescottlor (U)YELLOWNormalYELLOWTrumbull Memorial HospitalComment on above: Performed By: #### CVDAGS #### [facility] [address] [address] [address] Ashlie HillsCrystals LM Nom (Urine sed)NONE SEENNormalNONE SEENTrumbull Memorial HospitalComc.s. [facility] on above:Performed By: #### CVDAGS #### [facility] [address] [address] [address] Dailey ChangEpithelial cells LM Ql (Urine sed)MODERATEAbnormalNONE SEEN /RARE The [facility] HospitalComc.[facility] on above:Performed By: #### CVDAGS #### [facility] [address] [place] [address] Dr. Ashlie HillsGlucose Ql (U)NegativeNormalNEGATIVETrumbull Memorial HospitalComc.s. [facility] on above:Performed By: #### CVDAGS #### [facility] [address] [address] [address] Ashlie HillsHemoglobin Ql (U)TRACE-INTACTAbnormalNEGATIVETrumbull Memorial HospitalComc.s. [facility] on above:Performed By: #### CVDAGS #### [facility] [address] [place] [address] Dr. Ashlie HillsKetones Ql (U)NegativeNormalNEGATIVETrumbull Memorial HospitalComc.s. [facility] on above:Performed By: #### CVDAGS #### [facility] [address] [address] [address] Ashlie HillsLEUKOCYTESNegativeNormalNEGATIVETrumbull Memorial HospitalComc.s. [facility] on above:Performed By: #### CVDAGS #### [facility] [address] [address] [address] Ashlie HillsMUCOUSNONE SEENNormalNONE SEENTrumbull Memorial HospitalComc.s. [facility] on above:Performed By: #### CVDAGS #### [facility] [address] [address] [address] Ashlie HillsNitrite Ql (U)NegativeNormalNEGATIVEThe [facility] HospitalComment on above:Performed By: #### CVDAGS #### [facility] [address] [place] [address] Dr. Ashlie HillspH (U)5.0 [pH]Normal5-9The [facility] HospitalComment on above: Performed By: #### CVDAGS #### [facility] [address] [place] [address] Dr. Ashlie WilderLjcqzQGF8-9Ltidgt8-4Dfn [facility] HospitalComment on above:Performed By: #### CVDAGS #### [facility] [address] [place] [address] Dr. Ashlie HillsSPEC GRAVITY1.757Gpkdczev3.005-<=1.025[facility] Comment on above:Performed By: #### CVDAGS #### [facility] [address] [place] [address] Dr. Ashlie Vaughn WFOZMUT186 mg/dlAbnormalNEGATIVE/ TRACEThe [facility] Comment on above:Performed By: #### CVDAGS #### [facility] [address] [place] [address] Dr. Ashlie Metzbilinogen Qn (U)0.2 {Little'U}/dLNormal0.2 - 1.0The [facility] HospitalComment on above:Performed By: #### CVDAGS #### [facility] [address] [place] [address] Dr. Ashlie HillsWBCNONE SEENNormalNONE SEENThe [facility] HospitalComment on above: Performed By: #### CVDAGS #### [facility] [address] [place] [address] Dr. Ashlie Chinchilla AUTO DIFFon [id number] #0.0 103/ulNormal0.0-0.1The [facility] HospitalComment on above:Performed By: #### CBC #### [facility] [address] [place] [address] Dr. Ashlie HillsBasophils/100 WBC (Bld)0.3 %Normal0.2-2.0[facility] Comment on above:Performed By: #### CBC #### [facility] [address] [place] [address] Dr. Ashlie Mcintosh #0.4 103/ulNormal0.0-0.7The [facility] HospitalComment on above: Performed By: #### CBC #### [facility] [address] [place] [address] Dr. Ashlie Grahamosinophils/100 WBC (Bld)3.0 %Normal0.9-7.0[facility] Comment on above:Performed By: #### CBC #### [facility] [address] [place] [address] Dr. Ashlie Grahamrythrocyte distribution width (RBC) [Ratio]15.3 %Critically high 11.0-15.0[facility] HospitalComment on above:Performed By: #### CBC #### [facility] [address] [place] [address] Dr. Ashlie HillsHematocrit (Bld) [Volume fraction]52.4 %Critically high36.0-48.0 The [facility] HospitalComment on above:Performed By: #### CBC #### [facility] [address] [place] [address] Dr. Ashlie HillsHemoglobin (Bld) [Mass/Vol]16.8 g/dLCritically high12.0-16.0[facility] HospitalComment on above:Performed By: #### CBC #### [facility] [address] [place] [address] Dr. Ashlie Hunter #0.04 10e3/ulCritically high0.00-0.03[facility] Comment on above:Performed By: #### CBC #### [facility] [address] [place] [address] Dr. Ashlie Hunter %0.3 %Normal0.0-0.5The [facility] HospitalComment on above: Performed By: #### CBC #### [facility] [address] [place] [address] Dr. Ashlie Swenson #4.5 103/ulCritically high1.2-3.8[facility] Comment on above:Performed By: #### CBC #### [facility] [address] [place] [address] Dr. Ashlie Dsouzahocytes/100 WBC (Bld)33.2 %Bzuius08.5-60.0The [facility] HospitalComment on above:Performed By: #### CBC #### [facility] [address] [place] [address] Dr. Ashlie Marie DIFF REQNONormalThe [facility] HospitalComment on above: Performed By: #### CBC #### [facility] [address] [place] [address] Dr. Ashlie Granger (RBC) [Entitic mass]28.0 whViddsb05.7-34.0The [facility] HospitalComment on above:Performed By: #### CBC #### [facility] [address] [place] [address] Dr. Ashlie Mckeon (RBC) [Mass/Vol]32.1 g/jGWhjzow80.9-35.2The [facility] HospitalComment on above:Performed By: #### CBC #### [facility] [address] [place] [address] Dr. Ashlie Mckeon (RBC) [Entitic vol]87.3 gYBarwjd19.0-99.0The [facility] HospitalComment on above:Performed By: #### CBC #### [facility] [address] [place] [address] Dr. Ashlie Killian #0.8 103/ulNormal0.3-0.8The [facility] HospitalComment on above:Performed By: #### CBC #### [facility] [address] [place] [address] Dr. Ashlie Palominoocytes/100 WBC (Bld)5.7 %Normal1.7-12.0[facility] Comment on above:Performed By: #### CBC #### [facility] [address] [place] [address] Dr. Ashlie Olsen #7.8 103/ulCritically high1.4-6.5[facility] Comment on above:Performed By: #### CBC #### [facility] [address] [address] [address] Ashlie Quiñonesutrophils/100 WBC (Bld)57.5 %Rntmee97.0-75.0[facility] HospitalComment on above:Performed By: #### CBC #### [facility] [address] [address] [address] Ashlie HillsPlatelet mean volume (Bld) [Entitic vol]12.0 fLNormal9.5-13.5The [facility] HospitalComment on above:Performed By: #### CBC #### [facility] [address] [place] [address] Dr. Ashlie HillsPLT152 103/enVtpncc357-858DtdTrumbull Memorial HospitalComment on above: Performed By: #### CBC #### [facility] [address] [place] [address] Dr. Ashlie HillsRBC6.00 106/ulCritically high4.20-5.40[facility] Comment on above:Performed By: #### CBC #### [facility] [address] [place] [address] Dr. Ashlie HillsWBC13.6 103/ulCritically high4.0-11.0[facility] HospitalComment on above:Performed By: #### CBC #### [facility] [address] [place] [address] Dr. Ashlie HillsLIPID PROFILEon [id number]-HDL RATIO NORMSEE [facility] HospitalComment on above:Result Comment: 3.3 - 4.4 LOW RISK 4.4 - 7.1 AVERAGE RISK 7.1 - 11.0 MODERATE RISK >11.0 HIGH RISKPerformed By: #### CBC #### [facility] [address] [place] [address] Dr. Ashlie HillsCholesterol [Mass/Vol]139 mg/dLNormal<=200The [facility] Comment on above:Performed By: #### CBC #### [facility] [address] [address] [address] Ashlie HillsCholesterol in HDL [Mass/Vol]35 mg/dLCritically sqz67-46DpzTrumbull Memorial HospitalComment on above:Performed By: #### CBC #### [facility] [address] [address] [address] Ashlie HillsCholesterol in LDL [Mass/Vol]67.4 mg/dLNoMagruder HospitalComment on above:Performed By: #### CBC #### [facility] [address] [address] [address] Ashlie Lopezesteroralia.total/Cholesterol in HDL [Mass ratio]4.0 {ratio} NormalTrumbull Memorial HospitalComment on above:Performed By: #### CBC #### [facility] [address] [address] [address] Ashlie Potts NORMAL> or = 60 mg/dl - LOW CARDIOVASCULAR RISK <40 mg/dl - HIGH CARDIOVASCULAR RISKNoMagruder HospitalComment on above:Performed By: #### CBC #### [facility] [address] [address] [address] Ashlie Desai CALC NORMALSEE BELOWZanesville City HospitalComment on above:Result Comment: <100 mg/dl OPTIMAL 100 - 129 mg/dl NEAR OR ABOVE OPTIMAL 130 - 159 mg/dl BORDERLINE HIGH 160 - 189 mg/dl HIGH >190 mg/dl VERY HIGH Performed By: #### CBC #### [facility] [address] [address] [address] Ashlie HillsTriglyceride [Mass/Vol]183 mg/dLCritically high<=150[facility] HospitalComment on above:Performed By: #### CBC #### [facility] [address] [address] [address] Ashlie UnderwoodLDL CALC36.6 mg/dLNoMagruder HospitalComment on above: Performed By: #### CBC #### [facility] [address] [address] [address] Ashlie HillsMG MAMM SCREEN 3D ALEX CADon [id number] MAMM SCREEN 3D ALEX CAD Patient: MITZI MACIAS Exam Date: 11/22/2022 : 1970 Gender:F Ordering : SAYDA MCKAYLA CHETJuanis MAT PUNCHER Admission #: [id number] Family : Order #: [id number] CLICK HERE TO VIEW EXAM RADIOLOGY REPORT [...] by: Patricia Veloz M.D. on 11/22/2022 at 12:09Z[facility]ville City HospitalPROF 14(COMP METB)on [id number] [Mass/Vol]3.0 g/dLCritically low 3.4-5.0The [facility] Hospitalment on above:Performed By: #### CBC #### [facility] [address] [address] [address] Ashlie HillsAlbumin/Globulin [Mass ratio]0.6 {ratio}NormalThe [facility] HospitalComment on above:Performed By: #### CBC #### [facility] [address] [address] [address] Ashlie Gonzalez [Catalytic activity/Vol]68 U/EEnyyns70-407Kzj [facility] HospitalComment on above:Performed By: #### CBC #### [facility] [address] [address] [address] Ashlie MoralesT [Catalytic activity/Vol]14 U/MWqzeoa54-60Xet [facility] HospitalComment on above:Performed By: #### CBC #### [facility] [address] [address] [address] Ashlie Hassanon gap [Moles/Vol]12.1 mmol/LNormalThe [facility] Comment on above:Performed By: #### CBC #### [facility] [address] [address] [address] Ashlie HillsAST [Catalytic activity/Vol]9 U/LCritically hfl34-92Yhr [facility] HospitalComment on above:Performed By: #### CBC #### [facility] [address] [address] [address] Ashlie HillsBilirubin [Mass/Vol]0.4 mg/dLNormal0.2-1.0[facility] Comment on above:Performed By: #### CBC #### [facility] [address] [address] [address] Ashlie HillsCalcium [Mass/Vol]9.0 mg/dLNormal8.5-10.1[facility] Comment on above:Performed By: #### CBC #### [facility] [address] [place] [address] Dr. Ashlie HillsChloride [Moles/Vol]105 mmol/PBbtghe56-564Uwz [facility] Comment on above:Performed By: #### CBC #### [facility] [address] [address] [address] Ashlie HillsCO2 [Moles/Vol]30.7 mmol/OQfwugd89.0-32.0[facility] Comment on above:Performed By: #### CBC #### [facility] [address] [address] [address] Ashlie Lopezatinine [Mass/Vol]0.77 mg/dLNormal0.55-1.02The [facility] HospitalComment on above:Performed By: #### CBC #### [facility] [address] [place] [address] Dr. Ashlie GrahamGFR-AF GUINEAN>60Normal>=60The [facility] HospitalComment on above:Performed By: #### CBC #### [facility] [address] [place] [address] Dr. Ashlie GrahamGFR-NON AF GUINEAN>60Normal>=60The [facility] HospitalComment on above:Performed By: #### CBC #### [facility] [address] [place] [address] Dr. Ashlie HillsGlobulin (S) [Mass/Vol]4.8 g/dLNormalThe [facility] HospitalComment on above:Performed By: #### CBC #### [facility] [address] [place] [address] Dr. Ashlie HillsGlucose [Mass/Vol]162 mg/dLCritically quju37-172EwvThe MetroHealth Systemment on above:Performed By: #### CBC #### [facility] [address] [place] [address] Dr. Ashlie HillsPotassium [Moles/Vol]3.8 mmol/LNormal3.5-5.1[facility] Comment on above:Performed By: #### CBC #### [facility] [address] [place] [address] Dr. Ashlie HillsProtein [Mass/Vol]7.8 g/dLNormal6.4-8.2[facility] Comment on above:Performed By: #### CBC #### [facility] [address] [place] [address] Dr. Ashlie HillsSodium [Moles/Vol]144 mmol/CEjtvcw987-061Adq [facility] Comment on above:Performed By: #### CBC #### [facility] [address] [place] [address] Dr. Ashlie HillsUrea nitrogen [Mass/Vol]24.0 mg/dLCritically high7.0-18.0The [facility] HospitalComment on above:Performed By: #### CBC #### [facility] [address] [place] [address] Dr. Ashlie Jones nitrogen/Creatinine [Mass ratio]31.2 mg/mgNormalThe [facility] HospitalComment on above:Performed By: #### CBC #### [facility] [address] [place] [address] Dr. Ashlie Chinchilla AUTO DIFFon [id number] #0.1 103/ulNormal0.0-0.1The [facility] HospitalComment on above:Performed By: #### CBC #### [facility] [address] [place] [address] Dr. Ashlie HillsBasophils/100 WBC (Bld)0.6 %Normal0.2-2.0The [facility] Comment on above:Performed By: #### CBC #### [facility] [address] [place] [address] Dr. Ashlie Mcintosh #0.3 103/ulNormal0.0-0.7The [facility] HospitalComment on above: Performed By: #### CBC #### [facility] [address] [place] [address] Dr. Ashlie Grahamosinophils/100 WBC (Bld)2.1 %Normal0.9-7.0[facility] Comment on above:Performed By: #### CBC #### [facility] [address] [place] [address] Dr. Ashlie Grahamrythrocyte distribution width (RBC) [Ratio]15.9 %Critically high 11.0-15.0The [facility] HospitalComment on above:Performed By: #### CBC #### [facility] [address] [place] [address] Dr. Ashlie HillsHematocrit (Bld) [Volume fraction]51.8 %Critically high36.0-48.0 The [facility] HospitalComment on above:Performed By: #### CBC #### [facility] [address] [address] [address] Ashlie HillsHemoglobin (Bld) [Mass/Vol]16.6 g/dLCritically high12.0-16.0The [facility] HospitalComment on above:Performed By: #### CBC #### [facility] [address] [place] [address] Dr. Ashlie Hunter #0.03 10e3/ulNormal0.00-0.03The [facility] HospitalComment on above:Performed By: #### CBC #### [facility] [address] [place] [address] Dr. Ashlie Hunter %0.2 %Normal0.0-0.5The [facility] HospitalComment on above: Performed By: #### CBC #### [facility] [address] [place] [address] Dr. Ashlie Swenson #3.9 103/ulCritically high1.2-3.8The [facility] Comment on above:Performed By: #### CBC #### [facility] [address] [place] [address] Dr. Ashlie Dsouzahocytes/100 WBC (Bld)31.7 %Oeulsh11.5-60.0The [facility] HospitalComment on above:Performed By: #### CBC #### [facility] [address] [place] [address] Dr. Ashlie GhoshUAL DIFF REQNONormalThe [facility] HospitalComment on above: Performed By: #### CBC #### [facility] [address] [place] [address] Dr. Ashlie Mckeon (RBC) [Entitic mass]27.9 mvNyjdae73.7-34.0The [facility] HospitalComment on above:Performed By: #### CBC #### [facility] [address] [place] [address] Dr. Ashlie Mckeon (RBC) [Mass/Vol]32.0 g/lVApzaju61.9-35.2The [facility] HospitalComment on above:Performed By: #### CBC #### [facility] [address] [address] [address] Ashlie MckeonV (RBC) [Entitic vol]87.1 aSLgsilu36.0-99.0The [facility] HospitalComment on above:Performed By: #### CBC #### [facility] [address] [place] [address] Dr. Ashlie Killian #0.7 103/ulNormal0.3-0.8The [facility] HospitalComment on above:Performed By: #### CBC #### [facility] [address] [place] [address] Dr. Ashlie Palominoocytes/100 WBC (Bld)5.8 %Normal1.7-12.0[facility] Comment on above:Performed By: #### CBC #### [facility] [address] [place] [address] Dr. Ashlie Olsen #7.3 103/ulCritically high1.4-6.5The [facility] Comment on above:Performed By: #### CBC #### [facility] [address] [place] [address] Dr. Ashlie Quiñonesutrophils/100 WBC (Bld)59.6 %Tbteqm35.0-75.0The [facility] HospitalComment on above:Performed By: #### CBC #### [facility] [address] [place] [address] Dr. Ashlie Lantigualet mean volume (Bld) [Entitic vol]11.7 fLNormal9.5-13.5The [facility] HospitalComment on above:Performed By: #### CBC #### [facility] [address] [place] [address] Dr. Ashlie HillsPLT117 103/ulCritically wcs702-046Naw [facility] HospitalComment on above:Performed By: #### CBC #### [facility] [address] [place] [address] Dr. Ashlie HillsRBC5.95 106/ulCritically high4.20-5.40The [facility] Comment on above:Performed By: #### CBC #### [facility] [address] [address] [address] Ashlie HillsWBC12.3 103/ulCritically high4.0-11.0The [facility] Hospitalment on above:Performed By: #### CBC #### [facility] [address] [address] [address] Ashlie HillsCT ABD/PELV W CONon [id number] ABD/PELV W CONEXAM: CT ABD/PELV W CON [...] Electronically authenticated by: RICCO PICKARD Date: 2022-10-05 13:13[facility] URINE PROFILEon [id number] Ql (U)NegativeNormal NEGATIVEThe [facility] HospitalComment on above:Performed By: #### POCGLUC #### [facility] [address] [place] [address] Dr. Ashlie HillsClarity (U)CLEARNormalCLEARThe [facility] HospitalComment on above: Performed By: #### POCGLUC #### [facility] [address] [address] [address] Ashlie Prescottlor (U)YELLOWNormalYELLOWTrumbull Memorial HospitalComment on above: Performed By: #### POCGLUC #### [facility] [address] [place] [address] Dr. Ashlie Clayton micrscopic examination will be performed if indicated. NormalPromedica Bay Park Hospital HospitalComment on above:Performed By: #### POCGLUC #### [facility] [address] [address] [address] Ashlie Rutledgeose Ql (U)NegativeNormalNEGATIVETrumbull Memorial HospitalComment on above:Performed By: #### POCGLUC #### [facility] [address] [place] [address] Dr. Ashlie HillsHemoglobin Ql (U)NegativeNormalNEGATIVETrumbull Memorial Hospital Comment on above:Performed By: #### POCGLUC #### [facility] [address] [place] [address] Dr. Ashlie HillsKetones Ql (U)NegativeNormalNEGATIVETrumbull Memorial HospitalComment on above:Performed By: #### POCGLUC #### [facility] [address] [place] [address] Dr. Ashlie HillsLEUKOCYTESNegativeNormalNEGATIVETrumbull Memorial HospitalComc.[facility]. [facility] on above:Performed By: #### POCGLUC #### [facility] [address] [place] [address] Dr. Ashlie HillsNitrite Ql (U)NegativeNormalNEGATIVETrumbull Memorial HospitalComment on above:Performed By: #### POCGLUC #### [facility] [address] [place] [address] Dr. Ashlie HillspH (U)6.0 [pH]Normal5-9[facility] HospitalComment on above: Performed By: #### POCGLUC #### [facility] [address] [place] [address] Dr. Ashlie HillsProtein (U) [Mass/Vol]100 mg/dLAbnormalNEGATIVE/ TRACEPromedica Bay Park Hospital HospitalComment on above:Performed By: #### POCGLUC #### [facility] [address] [address] [address] Ashlie HillsSPEC GRAVITY1.110Lwzciu2.005-<=1.025The [facility] HospitalComment on above:Performed By: #### POCGLUC #### [facility] [address] [address] [address] Ashlie Sullivan MICRO INDINDICATEDNormalThe [facility] HospitalComment on above: Performed By: #### POCGLUC #### [facility] [address] [address] [address] Ashlie Metzbilinogen Qn (U)1.0 {Little'U}/dLNormal0.2 - 1.0The [facility] HospitalComment on above:Performed By: #### POCGLUC #### [facility] [address] [place] [address] Dr. Ashlie HillsLIPASEon [id number] [Catalytic activity/Vol]1771.0 U/L Critically high73.0-393.0The [facility] HospitalComment on above:Performed By: #### CBC #### [facility] [address] [place] [address] Dr. Ashlie Sewell HCG QUALon [id number], QUALNegativeNormalNEGATIVE The [facility] HospitalComment on above:Performed By: #### POCGLUC #### [facility] [address] [place] [address] Dr. Ashlie HillsPROF 14(COMP METB)on [id number] [Mass/Vol]3.2 g/dL Critically low3.4-5.0The [facility] HospitalComment on above:Performed By: #### CBC #### [facility] [address] [place] [address] Dr. Ashlie HillsAlbumin/Globulin [Mass ratio]0.7 {ratio}NormalThe [facility] on above:Performed By: #### CBC #### [facility] [address] [place] [address] Dr. Ashlie MoralesP [Catalytic activity/Vol]70 U/HZhzalj05-707Onp [facility] HospitalComment on above:Performed By: #### CBC #### [facility] [address] [address] [address] Ashlie MoralesT [Catalytic activity/Vol]11 U/LCritically izw12-13Akc [facility] HospitalComment on above:Performed By: #### CBC #### [facility] [address] [address] [address] Ashlie Hassanon gap [Moles/Vol]10.3 mmol/LNormalThe [facility] Comment on above:Performed By: #### CBC #### [facility] [address] [address] [address] Ashlie HillsAST [Catalytic activity/Vol]11 U/LCritically rzf62-34Mox [facility] HospitalComment on above:Performed By: #### CBC #### [facility] [address] [address] [address] Ashlie HillsBilirubin [Mass/Vol]0.9 mg/dLNormal0.2-1.0[facility] Comment on above:Performed By: #### CBC #### [facility] [address] [address] [address] Ashlie HillsCalcium [Mass/Vol]9.3 mg/dLNormal8.5-10.1[facility] Comment on above:Performed By: #### CBC #### [facility] [address] [address] [address] Ashlie HillsChloride [Moles/Vol]105 mmol/BCoazah35-131Dln [facility] Comment on above:Performed By: #### CBC #### [facility] [address] [address] [address] Ashlie HillsCO2 [Moles/Vol]30.6 mmol/FUofqpc38.0-32.0The [facility] Comment on above:Performed By: #### CBC #### [facility] [address] [address] [address] Ashlie HillsCreatinine [Mass/Vol]0.62 mg/dLNormal0.55-1.02The [facility] Hospitalment on above:Performed By: #### CBC #### [facility] [address] [address] [address] Ashlie GrahamGFR-AF GUINEAN>60Normal>=60The [facility] HospitalComment on above:Performed By: #### CBC #### [facility] [address] [address] [address] Ashlie GrahamGFR-NON AF GUINEAN>60Normal>=60The [facility] HospitalComment on above:Performed By: #### CBC #### [facility] [address] [address] [address] Ashlie HillsGlobulin (S) [Mass/Vol]4.6 g/dLNormalThe [facility] HospitalComc.[facility]. [facility] on above:Performed By: #### CBC #### [facility] [address] [address] [address] Ashlie HillsGlucose [Mass/Vol]85 mg/kWGvrmsa63-575JxpTrumbull Memorial Hospital Comment on above:Performed By: #### CBC #### [facility] [address] [address] [address] Ashlie HillsPotassium [Moles/Vol]3.9 mmol/LNormal3.5-5.1[facility] Comment on above:Performed By: #### CBC #### [facility] [address] [address] [address] Ashlie HillsProtein [Mass/Vol]7.8 g/dLNormal6.4-8.2[facility] Comment on above:Performed By: #### CBC #### [facility] [address] [address] [address] Ashlie HillsSodium [Moles/Vol]142 mmol/ZCyynin422-574Hph [facility] Comment on above:Performed By: #### CBC #### [facility] [address] [address] [address] Ashlie HillsUrea nitrogen [Mass/Vol]12.0 mg/dLNormal7.0-18.0The [facility] Hospitalment on above:Performed By: #### CBC #### [facility] [address] [address] [address] Ashlie HillsUrea nitrogen/Creatinine [Mass ratio]19.4 mg/mgNoMagruder HospitalComc.s. [facility] on above:Performed By: #### CBC #### [facility] [address] [address] [address] Ashlie Recinos MICROSCOPIC ONLYon 12-42-5160IRIVMWTZQOAEJYfhqiyjvEWXL SEEN [facility] HospitalComc.[facility] on above:Performed By: #### POCGLUC #### [facility] [address] [address] [address] Ashlie Cortez identified Cx Nom (U)NOT INDICATEDZanesville City HospitalComc.s. [facility] on above:Performed By: #### POCGLUC #### [facility] [address] [place] [address] Dr. Ashlie Thibodeaux SEENNormalNONE SEENSt. [facility]'s Hospital on above:Performed By: #### POCGLUC #### [facility] [address] [place] [address] Dr. Ashlie Boyerystals LM Nom (Urine sed)NONE SEENNormalNONE SEENSt. Anthony's Hospital on above:Performed By: #### POCGLUC #### [facility] [address] [place] [address] Dr. Dailey ChangEpithelial cells LM Ql (Urine sed)MODERATEAbnormalNONE SEEN /RARE [facility]Com[facility] on above:Performed By: #### POCGLUC #### [facility] [address] [place] [address] Dr. Ashlie SuarezCOUSNONE SEENNormalNONE SEENSt. Anthony's Hospital on above:Performed By: #### POCGLUC #### [facility] [address] [place] [address] Dr. Ashlie PruettYutdtZZT8-4Socfag1-1Qfm [facility] on above:Performed By: #### POCGLUC #### [facility] [address] [place] [address] Dr. Ashlie BhaktaBC0-2AbnormalNONE SEENL[facility] on above: Performed By: #### POCGLUC #### [facility] [address] [address] [address] Ashlie Tapia-19 PCR ([facility])on 66-10-1050DQTZ-CoV-2 (COVID-19) RNA MADDY+probe Ql (Unsp spec)DetectedAbnormalNOT DETECTEDThe [facility] on above:Result Comment: This test is not yet approved or cleared by the [place] FDA. When there are no FDA-approved or cleared tests available, and other criteria are met, FDA can make tests available under an emergency access mechanism called an Emergency Use Authorization (EUA). The EUA for this test is supported by the [employer] of Health and Human Service's declaration that [...] used).Performed By: #### CVDAGS #### [facility] [address] [place] [address] Dr. Ashlie Centeno AND B AGon [id number]h on above:Result Comment: Negative for Flu A protein angiten. Infection due to Flu A cannot be ruled out. FluA angiten in the sample may be below the detection limit of the test.Performed By: #### INFLUAB #### [facility] [address] [address] [address] Ashlie HillsINFLUBNEGHSEE [facility] on above: Result Comment: Negative for Flu B protein antigen. Infection due to Flu B cannot be ruled out. FluB antigen in the sample may be below the detection limit of the test.Performed By: #### INFLUAB #### [facility] [address] [place] [address] Dr. Ashlie Centeno AGNegativeNormalNEGATIVE SEE COMMENTThe [facility] HospitalComment on above:Performed By: #### INFLUAB #### [facility] [address] [place], [place] [address] Dr. Ashlie Shaffer AGNegativeNormalNEGATIVE SEE COMMENTThe [facility] HospitalComment on above:Performed By: #### INFLUAB #### [facility] [address] [place], [place] [address] Dr. Ashlie HillsCT ABD/PELV W CONon 04-26-6978VE ABD/PELV W CONINDICATION: Disorder of adrenal gland [...] dating back to at least 10/21/2018, unchanged. https://www.ncbi.nlm.nih.gov/pmc/articles/NOA7471005/ Electronically authenticated by: COLLIN HUERTAS Date: 2022-07-27 14:56Zanesville City HospitalCREATININEon 23-78-7547Kalztplltl [Mass/Vol]0.81 mg/dLNormal 0.55-1.02[facility] HospitalComment on above:Performed By: #### CBC #### [facility] [address] [address] [address] Ashlie GrahamGFR-AF GUINEAN>60Normal>=60The [facility] on above:Performed By: #### CBC #### [facility] [address] [address] [address] Ashlie GrahamGFR-NON AF GUINEAN>60Normal>=60The [facility]fredo HospitalComment on above:Performed By: #### CBC #### [facility] [id number] Ashlie Radford LOW EXT W CONT LTon [id number] LOW EXT W CONT LTEXAMINATION: CT LOW [...] Electronically authenticated by: PATRICIA VELOZ Date: 2022-07-18 14:58NoMagruder HospitalXR KNEE LT 1_2 Von [id number] KNEE LT 1_2 VEXAM: XR KNEE LT [...] Electronically authenticated by: HATTIE BAUTISTA Date: 2022-07-18 12:00Z[facility] City HospitalCovid-19 PCR (CVDTBH)on 30-42-0364NRZI-CoV-2 (COVID-19) RNA MADDY+probe Ql (Unsp spec)Not detectedNormalNOT DETECTEDTrumbull Memorial Hospital Comment on above:Result Comment: This test is not yet approved or cleared by the [place] FDA. When there are no FDA-approved or cleared tests available, and other criteria are met, FDA can make tests available under an emergency access mechanism called an Emergency Use Authorization (EUA). The EUA for this test is supported by the [place] of Health and Human Service's (HHS's) declaration [...] SARS-CoV-2.Performed By: #### CBC #### [facility] [address] [place] [address] Dr. Ashlie Centeno AND [facility] 02-06-3778WWRTQXSDRVLKSHolmes County Joel Pomerene Memorial HospitalComment on above:Result Comment: Negative for Flu A protein angiten. Infection due to Flu A cannot be ruled out. FluA angiten in the sample may be below the detection limit of the test.Performed By: #### CBC #### [facility] [address] [place] [address] Dr. Ashlie VelasquezUBNEGDEDRICK [facility] on above: Result Comment: Negative for Flu B protein antigen. Infection due to Flu B cannot be ruled out. FluB antigen in the sample may be below the detection limit of the test.Performed By: #### CBC #### [facility] [address] [place] [address] Dr. Ashlie Centeno AGNegativeNormalNEGATIVE SEE COMMENTThe [facility] on above:Performed By: #### CBC #### [facility] [address] [place] [address] Dr. Ashlie Lockhart B AGNegativeNormalNEGATIVE SEE COMMENTThe [facility] on above:Performed By: #### CBC #### [facility] [address] [place] [address] Dr. Ashlie HillsPOINT OF CARE GLUCOSEon 49-05-5802Otdchnd [Mass/Vol]108 mg/dL Critically hqjk52-779Bin [facility] HospitalComc.[facility] on above:Performed By: #### CBC #### [facility] [address] [place] [address] Dr. Ashlie HillsANA by IFAon 37-29-3650Ypoainggyjx Antibodies, IFANegativeNormal The [facility] on above:Result Comment: Negative <1:80 Borderline 1:80 Positive >1:80 ICAP nomenclature: AC-0 For more information about Hep-2 cell patterns use ANApatterns.org, the official website for the International Consensus on Antinuclear Antibody (RAGHU) Patterns (ICAP).Performed By: #### ANAIFA #### [facility] [address] [place] [address] Dr. Ashlie HillsIMMUNOFIXATION (TREVON), URINEon [id number] Interpretation:U CommentNormalThe [facility] on above:Result Comment: No monoclonality detected.Performed By: #### CBC #### [facility] [address] [place] [address] Dr. Ashlie HillsIMMUNOFIXATION(TREVON),PROTEIN ELEC(PE),FREon 59-48-1556Xugchmh [Mass/Vol]3.0 g/dLNormal2.9-4.4The [facility] Hospitalment on above:Performed By: #### INFLUAB #### [facility] [address] [place] [address] Dr. Ashlie HillsAlbumin/Globulin [Mass ratio]0.8 {ratio}Normal0.7-1.7The [facility] on above:Performed By: #### INFLUAB #### [facility] [address] [place] [address] Dr. Ashlie HillsZarflIrski-2-Dhcjnbxl5.3 g/dLNormal0.0-0.4ThMercy Health Fairfield HospitalComment on above:Performed By: #### INFLUAB #### [facility] [address] [place] [address] Dr. Ashlie HillsGdjqlGhpih-7-Ximqgdmp4.0 g/dLNormal0.4-1.0[facility] HospitalComment on above:Performed By: #### INFLUAB #### [facility] [address] [place] [address] Dr. Ashlie HillsBeta Globulin1.8 g/dLCritically high0.7-1.3TAultman Orrville Hospital Comment on above:Performed By: #### INFLUAB #### [facility] [address] [place] [address] Dr. Ashlie Skelton [place] Lt Chains,S45.2 mg/LCritically high3.3-19.4ThMercy Health Fairfield HospitalComment on above:Performed By: #### INFLUAB #### [facility] [address] [place] [address] Dr. Ashlie Skelton Lambda Lt Chains,S40.3 mg/LCritically high5.7-26.3TAultman Orrville HospitalComment on above:Performed By: #### INFLUAB #### [facility] [address] [place] [address] Dr. Ashlie HillsGamma Globulin0.8 g/dLNormal0.4-1.8The [facility] HospitalComment on above:Performed By: #### INFLUAB #### [facility] [address] [place] [address] Dr. Ashlie HillsGlobulin (S) [Mass/Vol]3.9 g/dLNormal2.2-3.9[facility] Comment on above:Performed By: #### INFLUAB #### [facility] [address] [place] [address] Dr. Ashlie HillsImmunofixation Result, SerumCommentNoMagruder Hospital Comment on above:Result Comment: No monoclonality detected.Performed By: #### INFLUAB #### [facility] [address] [address] [address] Ashlie HillsImmunoglobulin A, Qn, Sojvh688 mg/dLCritically cfqk80-498Odv [facility] Hospitalment on above:Performed By: #### INFLUAB #### [facility] [address] [place] [address] Dr. Ashlie HillsImmunoglobulin G, Qn, Erdmp699 mg/pKGdfyuy923-1352Ouv [facility] HospitalComc.s. [facility] on above:Performed By: #### INFLUAB #### [facility] [address] [place] [address] Dr. Ashlie HillsImmunoglobulin M, Qn, Serum39 mg/aPCqrkoy11-663Ptg [facility] HospitalComc.[facility] on above:Performed By: #### INFLUAB #### [facility] [address] [place] [address] Dr. Ashlie HillsKappa/Lambda Ratio, S1.63Jebale2.26-1.65[facility] Comment on above:Performed By: #### INFLUAB #### [facility] [address] [place] [address] Dr. Ashlie HillsM-SpikeNot ObservedNormalNot ObservedThe [facility] HospitalComc.[facility]. [facility] on above:Performed By: #### INFLUAB #### [facility] [address] [place] [address] Dr. Ashlie Bradford.NormalThe [facility] on above:Performed By: #### INFLUAB #### [facility] [address] [place] [address] Dr. Ashlie Fletcher note:CommentNormalThe [facility] on above: Result Comment: Protein electrophoresis scan will follow via computer, mail, or soft mud molder delivery.Performed By: #### INFLUAB #### [facility] [address] [place] [address] Dr. Ashlie HillsProtein [Mass/Vol]6.9 g/dLNormal6.0-8.5ThMercy Health Fairfield Hospital Comment on above:Performed By: #### INFLUAB #### [facility] [address] [place] [address] Dr. Ashlie HillsC-PEPTIDE, SERUMon 00-63-6045L-Peptide, Serum3.1 ng/mLNormal 1.1-4.4The [facility] HospitalComment on above:Result Comment: C-Peptide reference interval is for fasting patients.Performed By: #### CPEPT #### [facility] [address] [place] [address] Dr. Ashlie Sandoval B SURFACE ANTIGEN SCREENon 14-81-4941HIpLs ScreenNegative NormalNegativeThe [facility] HospitalComment on above:Performed By: #### CBC #### [facility] [address] [place] [address] Dr. Ashlie ChuaTIS C VIRUS AB W/ REFLEX QUANTon 45-90-0591ZAS AB<0.1Normal 0.0-0.9The [facility] Hospitalment on above:Performed By: #### INFLUAB #### [facility] [address] [place] [address] Dr. Ashlie HillsInterpretation:CommentNormalThe [facility] HospitalComment on above:Result Comment: Negative Not infected with HCV, unless recent infection is suspected or other evidence exists to indicate HCV infection.Performed By: #### INFLUAB #### [facility] [address] [place] [address] Dr. Ashlie HillsMICROALBUMIN/ CREATININE RATIOon 61-50-5517Ceumlaw, Sbvaa373.4 ug/mLNormalNot Estab.The [facility] HospitalComc.s. [facility] on above:Performed By: #### CBC #### [facility] [address] [place] [address] Dr. Ashlie HillsAlbumin/ Creatinine Bhjss292 mg/g creatCritically high0-29The [facility] HospitalComment on above:Result Comment: Normal: 0 - 29 Moderately increased: 30 - 300 Severely increased: >300Performed By: #### CBC #### [facility] [address] [place] [address] Dr. Ashlie HillsCreatinine, Otssp319.9 mg/dLNormalNot Estab.The [facility] Comment on above:Performed By: #### CBC #### [facility] [address] [address] [address] Ashlie Ramsey 25-[place] LABCORPon 74-45-0929Uhuhcmq D, 25-Hydroxy<4.0 Critically low30.0-100.0The [facility] on above:Result Comment: Vitamin D deficiency has been defined by the [place] of Medicine and an Endocrine Society practice guideline as a level of serum 25-OH vitamin D less than 20 ng/mL (1,2). The Endocrine Society went on to further define vitamin D insufficiency as a level between 21 and 29 ng/mL (2). 1. IOM ([place] of Medicine). 2010. Dietary reference intakes for calcium and D. [place]: The National Academies Press. 2. Lynda MF, Keely OLIVEROS, Leandra LOPEZ, et al. Evaluation, treatment, and prevention of vitamin D deficiency: an Endocrine Society clinical practice guideline. JCEM. 2010; 96(7):1911-30.Performed By: #### CBC #### [facility] [address] [place] [address] Dr. Ashlie HillsGLYCOHEMOGLOBIN A1Con 32-31-4122VAH RECOMMENDATIONSEE BELOWNormal The [facility] HospitalComment on above:Result Comment: ADA RECOMMENDED LIMIT 4.0 - 6.0 ADA THERAPEUTIC TARGET < 7.0 ACTION SUGGESTED > 7.0Performed By: #### CVDAGS #### [facility] [address] [address] [address] Ashlie HillsGlucose [Mass/Vol]295 mg/dLNormalThe [facility] HospitalComment on above:Performed By: #### CVDAGS #### [facility] [address] [address] [address] Ashlie HillsHbA1c (Bld) [Mass fraction]11.9 %Critically high4.5-6.2The [facility] HospitalComment on above:Performed By: #### CVDAGS #### [facility] [address] [place] [address] Dr. Ashlie HillsHEMOGRAM AND PLATELon 43-83-5277Itjudnwzws (Bld) [Volume fraction]56.3 %Critically high36.0-48.0The [facility] HospitalComment on above: Performed By: #### CVDAGS #### [facility] [address] [place] [address] Dr. Ashlie HillsHemoglobin (Bld) [Mass/Vol]18.0 g/dLCritically high12.0-16.0The [facility] HospitalComment on above:Performed By: #### CVDAGS #### [facility] [address] [place] [address] Dr. Ashlie MckeonH (RBC) [Entitic mass]29.5 fdYsrlza60.7-34.0The [facility] HospitalComment on above:Performed By: #### CVDAGS #### [facility] [address] [place] [address] Dr. Ashlie Mckeon (RBC) [Mass/Vol]32.0 g/kJYdqjll49.9-35.2The [facility] HospitalComment on above:Performed By: #### CVDAGS #### [facility] [address] [place] [address] Dr. Ashlie MckeonV (RBC) [Entitic vol]92.1 iHXvjvpz05.0-99.0The [facility] HospitalComment on above:Performed By: #### CVDAGS #### [facility] [address] [place] [address] Dr. Ashlie HillsPLT123 103/ulCritically oiz065-295Wpo [facility] HospitalComment on above:Performed By: #### CVDAGS #### [facility] [address] [place] [address] Dr. Ashlie HillsRBC6.11 106/ulCritically high4.20-5.40The [facility] Comment on above:Performed By: #### CVDAGS #### [facility] [address] [place] [address] Dr. Ashlie HillsWBC16.4 103/ulCritically high4.0-11.0The [facility] HospitalComment on above:Performed By: #### CVDAGS #### [facility] [address] [place], [place] [id number] Dr. Ashlie OmerID PROFILEon 21-52-8719OOHS-HDL RATIO NORMSMemorial Health System Marietta Memorial HospitalComment on above:Result Comment: 3.3 - 4.4 LOW RISK 4.4 - 7.1 AVERAGE RISK 7.1 - 11.0 MODERATE RISK >11.0 HIGH RISKPerformed By: #### CVDAGS #### [facility] [address] [place] [address] Dr. Ashlie HillsCholesterol [Mass/Vol]159 mg/dLNormal<=200[facility] Comment on above:Performed By: #### CVDAGS #### [facility] [address] [place] [address] Dr. Ashlei HillsCholesterol in HDL [Mass/Vol]40 mg/wHBzzxzt52-66OrsTrumbull Memorial HospitalComment on above:Performed By: #### CVDAGS #### [facility] [address] [place] [address] Dr. Ashlie HillsCholesterol in LDL [Mass/Vol]81.8 mg/dLZanesville City HospitalComment on above:Performed By: #### CVDAGS #### [facility] [address] [place] [address] Dr. Ashlie Lopezesteroralia.total/Cholesterol in HDL [Mass ratio]4.0 {ratio} NormalTrumbull Memorial HospitalComment on above:Performed By: #### CVDAGS #### [facility] [address] [place] [address] Dr. Ashlie Potts NORMAL> or = 60 mg/dl - LOW CARDIOVASCULAR RISK <40 mg/dl - HIGH CARDIOVASCULAR RISKZanesville City HospitalComment on above:Performed By: #### CVDAGS #### [facility] [address] [place] [address] Dr. Ashlie HillsLDL CALC NORMALSEE [facility] Flower HospitalComment on above:Result Comment: <100 mg/dl OPTIMAL 100 - 129 mg/dl NEAR OR ABOVE OPTIMAL 130 - 159 mg/dl BORDERLINE HIGH 160 - 189 mg/dl HIGH >190 mg/dl VERY HIGH Performed By: #### CVDAGS #### [facility] [address] [address] [address] Ashlie HillsTriglyceride [Mass/Vol]186 mg/dLCritically high<=150The [facility] HospitalComment on above:Performed By: #### CVDAGS #### [facility] [address] [address] [address] Ashlie HillsVLDL CALC37.2 mg/dLNormalThe [facility] HospitalComment on above: Performed By: #### CVDAGS #### [facility] [address] [address] [address] Ashlie Rhodes FUNCTION PANELon 30-62-0121Nmvycqw [Mass/Vol]3.1 g/dL Critically low3.4-5.0The [facility] HospitalComment on above:Performed By: #### CBC #### [facility] [address] [address] [address] Ashlie HillsCalcium [Mass/Vol]9.2 mg/dLNormal8.5-10.1The [facility] Comment on above:Performed By: #### CBC #### [facility] [address] [address] [address] Ashlie HillsChloride [Moles/Vol]102 mmol/AAloojl94-610Fdg [facility] Comment on above:Performed By: #### CBC #### [facility] [address] [address] [address] Ashlie HillsCO2 [Moles/Vol]31.9 mmol/OYbvxiv60.0-32.0The [facility] Comment on above:Performed By: #### CBC #### [facility] [address] [address] [address] Ashlie HillsCreatinine [Mass/Vol]0.68 mg/dLNormal0.55-1.02The [facility] HospitalComment on above:Performed By: #### CBC #### [facility] [address] [address] [address] Dailey ChangEGFR-AF GUINEAN>60Normal>=60The [facility] HospitalComment on above:Performed By: #### CBC #### [facility] [address] [address] [address] Ashlie GrahamGFR-NON AF GUINEAN>60Normal>=60The [facility] HospitalComment on above:Performed By: #### CBC #### [facility] [address] [address] [address] Ashlie HillsGlucose [Mass/Vol]131 mg/dLCritically aggt13-467Jcj [facility] HospitalComment on above:Performed By: #### CBC #### [facility] [address] [address] [address] Ashlie HillsPhosphate [Mass/Vol]4.0 mg/dLNormal2.6-4.7The [facility] Comment on above:Performed By: #### CBC #### [facility] [address] [address] [address] Ashlie HillsPotassium [Moles/Vol]4.0 mmol/LNormal3.5-5.1[facility] Comment on above:Performed By: #### CBC #### [facility] [address] [address] [address] Ashlie HillsSodium [Moles/Vol]141 mmol/ZUqaokv710-421OcmTrumbull Memorial Hospital Comment on above:Performed By: #### CBC #### [facility] [address] [address] [address] Ashlie HillsUrea nitrogen [Mass/Vol]17.0 mg/dLNormal7.0-18.0The [facility] HospitalComment on above:Performed By: #### CBC #### [facility] [address] [address] [address] Ashlie HillsUA RANDOM W/MICROSCOPICon 73-69-7296SORRVOBGOZOD SEENNormalNONE SEENThe [facility] HospitalComment on above:Performed By: #### INFLUAB #### [facility] [address] [address] [address] Ashlie HillsBilirubin Ql (U)NegativeNormalNEGATIVEThe [facility] Comment on above:Performed By: #### INFLUAB #### [facility] [address] [address] [address] Ashlie HillsCASTNONE SEENNormalNONE SEENTrumbull Memorial HospitalComment on above:Performed By: #### INFLUAB #### [facility] [address] [address] [address] Ashlie Chilel (U)CLEARNormalCLEARTrumbull Memorial HospitalComment on above: Performed By: #### INFLUAB #### [facility] [address] [place] [address] Dr. Ashlie Prescottlor (U)YELLOWNormalYELLOWTrumbull Memorial HospitalComment on above: Performed By: #### INFLUAB #### [facility] [address] [place] [address] Dr. Ashlie HillsCrystals LM Nom (Urine sed)NONE SEENNormalNONE SEENTrumbull Memorial HospitalComment on above:Performed By: #### INFLUAB #### [facility] [address] [place] [address] Dr. Dailey ChangEpithelial cells LM Ql (Urine sed)FEWAbnormalNONE SEEN /RARETrumbull Memorial HospitalComment on above:Performed By: #### INFLUAB #### [facility] [address] [place] [address] Dr. Ashlie HillsGlucose Ql (U)NegativeNormalNEGATIVETrumbull Memorial HospitalComment on above:Performed By: #### INFLUAB #### [facility] [address] [place] [address] Dr. Ashlie HillsHemoglobin Ql (U)NegativeNormalNEGATIVEMarietta Memorial Hospital on above:Performed By: #### INFLUAB #### [facility] [address] [place] [address] Dr. Ashlie HillsKetones Ql (U)NegativeNormalNEGATIVETrumbull Memorial HospitalComment on above:Performed By: #### INFLUAB #### [facility] [address] [place] [address] Dr. Ashlie HillsLEUKOCYTESNegativeNormalNEGATIVETrumbull Memorial HospitalComment on above:Performed By: #### INFLUAB #### [facility] [address] [place] [address] Dr. Ashlie SuarezCOUSCHAD SEENNormalNONE SEENThe [facility] HospitalComment on above:Performed By: #### INFLUAB #### [facility] [address] [place] [address] Dr. Ashlie Santostrite Ql (U)NegativeNormalNEGATIVEThe [facility] HospitalComment on above:Performed By: #### INFLUAB #### [facility] [address] [place] [address] Dr. Ashlie HillspH (U)5.5 [pH]Normal5-9The [facility] HospitalComment on above: Performed By: #### INFLUAB #### [facility] [address] [place] [address] Dr. Ashlie HillsQlswbANF5-1Owqakc5-2Qqy [facility] HospitalComment on above:Performed By: #### INFLUAB #### [facility] [address] [place] [address] Dr. Ashlie HillsSPEC GRAVITY>=1.534Pqrdwhok7.005-<=1.025The [facility] Comment on above:Performed By: #### INFLUAB #### [facility] [address] [place] [address] Dr. Ashlie Vaughn WEIPABK260 mg/dlAbnormalNEGATIVE/ TRACEThe [facility] Comment on above:Performed By: #### INFLUAB #### [facility] [address] [place] [address] Dr. Ashlie Metzbilinogen Qn (U)0.2 {Little'U}/dLNormal0.2 - 1.0The [facility] HospitalComment on above:Performed By: #### INFLUAB #### [facility] [address] [place] [address] Dr. Ashlie HillsWBCNONTracey SEENNormalNONE SEENThe [facility] HospitalComment on above: Performed By: #### INFLUAB #### [facility] [address] [place] [address] Dr. Ashlie Christine ACID SERUMon [id number] [Mass/Vol]5.0 mg/dLNormal 2.6-6.0The [facility] HospitalComment on above:Performed By: #### INFLUAB #### [facility] [address] [address] [address] Ashlie Recinos T PROTEIN CREAT RATIOon 60-12-9109Cmuzvjb (U) [Mass/Vol] 77.9 mg/dLCritically high<=12.0The [facility] HospitalComment on above:Performed By: #### CVDAGS #### [facility] [address] [place] [address] Dr. Ashlie Sullivan PROT CREAT RAT0.44NormalThe [facility] HospitalComment on above: Performed By: #### CVDAGS #### [facility] [address] [place] [address] Dr. Ashlie Recinos ZBOWZ692.15 mg/jKFjdoxt58.00-300.00[facility] Comment on above:Performed By: #### CVDAGS #### [facility] [address] [place] [address] Dr. Ashlie OrdoñezLTREGINO URINEon 12-02-6835CKRYUAC URINECulture Observations: GREATER THAN TWO ORGANISMS PRESENT, HEAVILY MIXED. PLEASE RESUBMIT CLEAN CATCH MID-STREAM URINE IF CLINICALLY INDICATED.NormalThe [facility] HospitalComment on above:Performed By: #### INFLUAB #### [facility] [address] [place] [address] Dr. Ashlie VernonC AUTO DIFFon [id number] #0.1 103/ulNormal0.0-0.1The [facility] HospitalComment on above:Performed By: #### CBC #### [facility] [address] [place] [address] Dr. Ashlie HillsBasophils/100 WBC (Bld)0.5 %Normal0.2-2.0[facility] Comment on above:Performed By: #### CBC #### [facility] [address] [place] [address] Dr. Ashlie Mcintosh #0.4 103/ulNormal0.0-0.7The [facility] HospitalComment on above: Performed By: #### CBC #### [facility] [address] [address] [address] Ashlie Grahamosinophils/100 WBC (Bld)2.4 %Normal0.9-7.0[facility] Comment on above:Performed By: #### CBC #### [facility] [address] [place] [address] Dr. Ashlie Grahamrythrocyte distribution width (RBC) [Ratio]14.1 %Ptldoj78.0-15.0 [facility] HospitalComment on above:Performed By: #### CBC #### [facility] [address] [place] [address] Dr. Ashlie HillsHematocrit (Bld) [Volume fraction]55.9 %Critically high36.0-48.0 The [facility] HospitalComment on above:Performed By: #### CBC #### [facility] [address] [place] [address] Dr. Ashlie HillsHemoglobin (Bld) [Mass/Vol]17.9 g/dLCritically high12.0-16.0[facility] HospitalComment on above:Performed By: #### CBC #### [facility] [address] [place] [address] Dr. Ashlie Hunter #0.06 10e3/ulCritically high0.00-0.03The [facility] Comment on above:Performed By: #### CBC #### [facility] [address] [place] [address] Dr. Ashlie Hunter %0.4 %Normal0.0-0.5ThMercy Health Fairfield HospitalComment on above: Performed By: #### CBC #### [facility] [address] [place] [address] Dr. Ashlie Swenson #5.8 103/ulCritically high1.2-3.8The [facility] Comment on above:Performed By: #### CBC #### [facility] [address] [place] [address] Dr. Ashlie Jademphocytes/100 WBC (Bld)35.4 %Opkcva62.5-60.0The [facility] HospitalComment on above:Performed By: #### CBC #### [facility] [address] [place] [address] Dr. Ashlie GhoshUAL DIFF REQNONormalThe [facility] HospitalComment on above: Performed By: #### CBC #### [facility] [address] [place] [address] Dr. Ashlie Mckeon (RBC) [Entitic mass]29.4 twElztjm82.7-34.0The [facility] HospitalComment on above:Performed By: #### CBC #### [facility] [address] [place] [address] Dr. Ashlie Mckeon (RBC) [Mass/Vol]32.0 g/eWNyubqb79.9-35.2The [facility] HospitalComment on above:Performed By: #### CBC #### [facility] [address] [place] [address] Dr. Ashlie Mckeon (RBC) [Entitic vol]91.8 fHCssvrf35.0-99.0The [facility] HospitalComment on above:Performed By: #### CBC #### [facility] [address] [place] [address] Dr. Ashlie Killian #0.8 103/ulNormal0.3-0.8The [facility] HospitalComment on above:Performed By: #### CBC #### [facility] [address] [place] [address] Dr. Ashlie Palominoocytes/100 WBC (Bld)4.8 %Normal1.7-12.0[facility] Comment on above:Performed By: #### CBC #### [facility] [address] [place] [address] Dr. Ashlie Olsen #9.3 103/ulCritically high1.4-6.5The [facility] Comment on above:Performed By: #### CBC #### [facility] [address] [address] [address] Ashlie HillsNeutrophils/100 WBC (Bld)56.5 %Rbcgct04.0-75.0The [facility] HospitalComment on above:Performed By: #### CBC #### [facility] [address] [address] [address] Ashlie HillsPlatelet mean volume (Bld) [Entitic vol]12.9 fLNormal9.5-13.5The [facility] HospitalComment on above:Performed By: #### CBC #### [facility] [address] [address] [address] Ashlie HillsPLT127 103/ulCritically mkv489-597Pyo [facility] HospitalComment on above:Performed By: #### CBC #### [facility] [address] [address] [address] Ashlie HillsRBC6.09 106/ulCritically high4.20-5.40The [facility] Comment on above:Performed By: #### CBC #### [facility] [address] [address] [address] Ashlie HillsWBC16.4 103/ulCritically high4.0-11.0The [facility] Hospitalment on above:Performed By: #### CBC #### [facility] [address] [address] [address] Ashlie HillsCT ABD/PELVIS WO CONon [id number] ABD/PELVIS WO CON Begin Addendum #1 Mildly [...] without diverticulitis. Severe right hip degenerative change.NormalThe [facility] URINE PROFILEon 00-77-1245Bwsqbwixf Ql (U) NegativeNormalNEGATIVEThe [facility] HospitalComment on above:Performed By: #### EVONNE CLAY #### [facility] [address] [place] [address] Dr. Ashlie Chilel (U)CLEARNormalCLEARThe [facility] HospitalComment on above: Performed By: #### KRISTINAR, UMICRO #### [facility] [address] [address] [address] Ashlie Roberts (U) ORANGEAbnormalYELLOWTrumbull Memorial HospitalComment on above:Performed By: #### OBED, UMICRO #### [facility] [address] [address] [address] Ashlie Clayton micrscopic examination will be performed if indicated. NormalTrumbull Memorial HospitalComment on above:Performed By: #### KRISTINAR, UMICRO #### [facility] [address] [address] [address] Ashlie HillsGlucose Ql (U)250 mg/dlAbnounc healthNEGHocking Valley Community Hospital Comment on above:Performed By: #### OBED, UMICRO #### [facility] [address] [address] [address] Ashlie HillsHemoglobin Ql (U)NegativermalNEGHocking Valley Community Hospital Comment on above:Performed By: #### OBED, UMICRO #### [facility] [address] [address] [address] Ashlie Connor Ql (U)NegativeNormalNEGATIVETrumbull Memorial HospitalComment on above:Performed By: #### OBED, UMICRO #### [facility] [address] [address] [address] Ashlie HillsLEUKOCYTESNegativeNormalNEGHocking Valley Community HospitalComment on above:Performed By: #### KRISTINAR, UMICRO #### [facility] [address] [address] [address] Ashlie Santostrite Ql (U)NegativeNormalNEGATIVETrumbull Memorial HospitalComment on above:Performed By: #### ERUR, UMICRO #### [facility] [address] [address] [address] Ashlie HillspH (U)5.0 [pH]Normal5-9[facility] Memorial HospitalComment on above: Performed By: #### ERUR, UMICRO #### [facility] [address] [place] [address] Dr. Aslhie HillsProtein (U) [Mass/Vol]100 mg/dLAbnormalNEGATIVE/ TRACEThe [facility] HospitalComment on above:Performed By: #### MADELINE CLAYRO #### [facility] [address] [place] [address] Dr. Ashlie HillsSPEC GRAVITY>=1.669Ubilbsks5.005-<=1.025The [facility] Comment on above:Performed By: #### MADELINE CLAYRO #### [facility] [address] [place] [address] Dr. Ashlie Sullivan MICRO INDINDICATEDNoMagruder HospitalComment on above: Performed By: #### EVONNE CLAY #### [facility] [address] [place] [address] Dr. Ashlie Metzbilinogen Qn (U)1.0 {Little'U}/dLNormal0.2 - 1.0The [facility] HospitalComment on above:Performed By: #### EVONNE CLAY #### [facility] [address] [place] [address] Dr. Ashlie Jones CHEM 8 (BAS METB)on 61-16-8909Xqpww gap [Moles/Vol]12.1 mmol/LNormalThe [facility] HospitalComment on above:Performed By: #### INFLUAB #### [facility] [address] [place] [address] Dr. Ashlie HillsCalcium [Mass/Vol]9.0 mg/dLNormal8.5-10.1[facility] Comment on above:Performed By: #### INFLUAB #### [facility] [address] [place] [address] Dr. Ashlie HillsChloride [Moles/Vol]101 mmol/NHyhorz14-934FyqTrumbull Memorial Hospital Comment on above:Performed By: #### INFLUAB #### [facility] [address] [place] [address] Dr. Ashlie HillsCO2 [Moles/Vol]29.1 mmol/LRpgazh88.0-32.0[facility] Comment on above:Performed By: #### INFLUAB #### [facility] [address] [place] [address] Dr. Ashlie HillsCreatinine [Mass/Vol]0.86 mg/dLNormal0.55-1.02The [facility] HospitalComment on above:Performed By: #### INFLUAB #### [facility] [address] [place] [address] Dr. Dailey ChangEGFR-AF GUINEAN>60Normal>=60The [facility] HospitalComment on above:Performed By: #### INFLUAB #### [facility] [address] [place] [address] Dr. Ashlie GrahamGFR-NON AF GUINEAN>60Normal>=60The [facility] HospitalComment on above:Performed By: #### INFLUAB #### [facility] [address] [place] [address] Dr. Ashlie HillsGlucose [Mass/Vol]236 mg/dLCritically qeue48-938Dth [facility] HospitalComment on above:Performed By: #### INFLUAB #### [facility] [address] [place] [address] Dr. Ashlie HillsPotassium [Moles/Vol]4.2 mmol/LNormal3.5-5.1The [facility] Comment on above:Performed By: #### INFLUAB #### [facility] [address] [place] [address] Dr. Ashlie HillsSodium [Moles/Vol]138 mmol/RFaeotn855-779Vac [facility] Comment on above:Performed By: #### INFLUAB #### [facility] [address] [place] [address] Dr. Ashlie HillsUrea nitrogen [Mass/Vol]11.0 mg/dLNormal7.0-18.0The [facility] HospitalComment on above:Performed By: #### INFLUAB #### [facility] [address] [place] [address] Dr. Yilan ChangUrea nitrogen/Creatinine [Mass ratio]12.8 mg/mgNoMagruder HospitalComment on above:Performed By: #### INFLUAB #### [facility] [address] [place] [address] Dr. Ashlie Recinos MICROSCOPIC ONLYon [id number]Q SEEN [facility] HospitalComc.s. [facility] on above:Performed By: #### OBED UMICRO #### [facility] [address] [address] [address] Ashlie Cortez identified Cx Nom (U)INDICATEDZanesville City HospitalComc.s. [facility] on above:Performed By: #### OBED UMICRO #### [facility] [address] [place] [address] Dr. Ashlie Thibodeaux SEENNormalNONE SEENTrumbull Memorial HospitalComc.s. [facility] on above:Performed By: #### OBED UMICRO #### [facility] [address] [place] [address] Dr. Ashlie Banegas LM Nom (Urine sed)NONE SEENNormalNONE SEENTrumbull Memorial HospitalComc.s. [facility] on above:Performed By: #### OBED UMICRO #### [facility] [address] [place] [address] Dr. Dailey ChangEaustinthelial cells LM Ql (Urine sed)MODERATEAbnormalNONE SEEN /RARE The [facility] HospitalComc.[facility]. [facility] on above:Performed By: #### OBED UMICRO #### [facility] [address] [place] [address] Dr. Ashlie HaroE SEENNormalNONE SEENTrumbull Memorial HospitalComc.s. [facility] on above:Performed By: #### OBED UMICRO #### [facility] [address] [place] [address] Dr. Ashlie PruettZvmofIGD0-7Ikvwvv7-3Ucw [facility] HospitalComc.[facility] on above:Performed By: #### OBED UMICRO #### [facility] [address] [place] [address] Dr. Ashlie BhaktaBC0-2AbnormalNONE SEENSt. Anthony's Hospital on above: Performed By: #### ERUR, UMICRO #### [facility] [address] [address] [address] Ashlie VelásquezASTPRESENTAbnormalNONE SEENSt. Anthony's Hospital on above:Performed By: #### ERUR, UMICRO #### [facility] [address] [address] [address] Ashlie Hutchinson RIGHT 1 OR 2 VWS WITH PELVISon 22-03-1799USE RIGHT 1 OR 2 VWS WITH PELVISUnRegency Hospital [facility] Department of Radiology [address] [place] [id number] Patient Name: MITZI MACIAS : 1970 Sex: F Age: Race: White Pt. Location: Patient Status: O Ordered Date: 07/20/2020 1:45:00 PM Completed Date: 07/20/2020 01:57 PM Requesting Provider: LIZ EISENBERG Attending Provider: LIZ EISENBERG Report Copy To: MCKAYLA BLAS Signs & Symptoms: M25.551 Pain in right hip I10 History: [place] Comments: evaluate Exam: HIP RIGHT 1 OR [...] MRI. Electronically signed: Pipo Acevedo. Transcribed by: [email or web address], User Resident: Electronically Signed by: PIPO ACEVEDO @ 07/20/2020 03:45 [facility] HospitalComment on above:Order Comment: evaluate Vital Signs Date TimeVital SignValuePerforming TddeymbbjFxeyaoye09-76-0310 17:58-0400Body tcbdeo773.1 cmLisa Aichholz [employer] Work Phone: [phone]10-22-2025 17:58-0400 Body mass index (BMI) [Ratio]61 kg/m2Lisa Aichholz [employer] Work Phone: [phone]10-22-2025 17:58-0400 Body iidphaahmsm88.1 [degF]Mckayla Aichholz [employer] Work Phone: [phone]10-22-2025 17:58-0400 Body qdshew090.18 kgLisa Aichholz [employer] Work Phone: [phone]10-22-2025 17:58-0400 Diastolic blood wmwmmogd85 mm[Hg]Mckayla Aichholz [employer] Work Phone: [phone]10-22-2025 17:58-0400 Heart rate84 /minLisa Aichholz [employer] Work Phone: [phone])[address]10-22-2025 17:58-0400 Respiratory rate20 /minLisa Aichholz [employer] Work Phone: [phone])[address]10-22-2025 17:58-0400 SaO2% (BldA) [Mass fraction]90 %Mckayla Aichholz [employer] Work Phone: [phone]10-22-2025 17:58-0400 Systolic blood fvxqilsr099 mm[Hg]Mckayla Aichholz [employer] Work Phone: [facility]09-29-2025 15:37-0400 Body ldrfjketapb13.1 [degF]Mckayla Harshadholz [employer] Work Phone: [phone])617-[facility]09-29-2025 15:37-0400 Diastolic blood uodsmqgy04 mm[Hg]Mckaylataryn Patriciaholz [employer] Work Phone: [phone]09-29-2025 15:37-0400 Heart rate81 /minLisa Aichholz [employer] Work Phone: [phone]09-29-2025 15:37-0400 Respiratory rate20 /minLisa Aichholz [employer] Work Phone: [phone]09-29-2025 15:37-0400 SaO2% (BldA) [Mass fraction]92 %Mckayla Harshadholz [employer] Work Phone: [phone] [place], [place] [address]409-29-2025 15:37-0400 Systolic blood yzsunpzf218 mm[Hg]Mckayla Patriciaholz [employer] Work Phone: [phone]-[facility]07-24-2025 09:48-0400 Body .2 Reji Souza MD Work Phone: [facility] HospitalGgdegmzdyc64-84-6635 09:48-0400Body mass index (BMI) [Ratio]56.38 kg/k4KqtgwRain Souza MD Work Phone: [facility] HospitalMaqsugpanq01-00-6572 09:48-0400Body .29 kgRain Souza MD Work Phone: [facility] HospitalPbmgnezcqd66-65-8122 09:48-0400Diastolic blood yjcmqkkv21 mm[Hg]Rain Souza MD Work Phone: [facility] HospitalKabtuzqkoe32-43-2220 09:48-0400Heart rate72 /min Rain Souza MD Work Phone: noNevada [facility] Medical CenterOohemvkxkr28-38-2280 09:48-0400Respiratory rate16 /minRain Souza MD Work Phone: noNevada Regional Medical CenterSabmtdztmh33-18-4047 09:48-2373YqT6% (BldA) [Mass fraction]84 %Rain Souza MD Work Phone: [facility] HospitalArbjlotmog01-79-8414 09:48-0400Systolic blood zferhvhn299 mm[Hg]Rain Souza MD Work Phone: [facility] HospitalSrdlgzujma26-36-8729 18:11-0400Body mass index (BMI) [Ratio]58.64 kg/m2Lisa Chetz [employer] Work Phone: [facility] HospitalVrgxjkcyyw90-12-9205 18:11-0400Body temperature 98.49 [degF]Mckayla Wan [employer] Work Phone: [facility] HospitalXejtlqqveo50-36-8262 18:11-0400Body xuxdlt583.83 kgLisa Chetz [employer] Work Phone: [facility] HospitalPobszarskn54-87-8553 18:11-0400Diastolic blood mm[Hg]Mckayla Wan [employer] Work Phone: [facility] HospitalFthdfsygpa38-16-1223 18:11-0400Heart rate81 /min Mckayla Wan [employer] Work Phone: [facility] HospitalIidsysfrof53-10-8303 18:11-0400Respiratory rate20 /minLisa Chetz [employer] Work Phone: [facility] HospitalHcwmqmfkxq50-79-0065 18:11-7247UfE8% (BldA) [Mass fraction]90 %Mckayla Wan [employer] Work Phone: [facility] HospitalIchduevikh98-11-1381 18:11-0400Systolic blood thhontdi929 mm[Hg]Mckayla Wan [employer] Work Phone: [facility] HospitalIwjgmxiovh72-65-9131 10:19-0400Body temperature 98.01 [degF]Mckayla Rosenbergz [employer] Work Phone: [facility] HospitalOkmzngdrze69-21-6986 10:19-0400Diastolic blood mm[Hg]Mckayla Harshadholz [employer] Work Phone: [facility] HospitalIbelmrblaf72-95-0550 10:-0Heart rate71 /min Mckayla Harshadholz [employer] Work Phone: [facility] HospitalRvcmzqjspc13-84-8487 10:-399Respiratory rate20 /minLisa Harshadholz [employer] Work Phone: [facility] HospitalYnaoevtebe37-54-5110 10:3639GuP4% (BldA) [Mass fraction]88 %Mckayla Rosenbergz [employer] Work Phone: [facility] HospitalOiaidsxjlf19-28-5710 10:-399Systolic blood gyotlylv964 mm[Hg]Mckayla Harshadholz [employer] Work Phone: [facility] HospitalJtdwplcced36-18-6790 14:11-0400Body rwvtgi924.2 cmLisa Harshadholz [employer] Work Phone: [facility] HospitalPtlpusxqwf21-06-8731 14:11-0400Body mass index (BMI) [Ratio]56.51 kg/m2Maria De Jesussa Harshadholz [employer] Work Phone: [facility] HospitalAiyadvavqb36-32-6436 14:11-0400Body temperature 98.71 [degF]Mckayla Harshadholz [employer] Work Phone: [facility] HospitalObmbduydje73-76-5785 14:11-0400Body .66 kgLisa Juanjosehholz [employer] Work Phone: [facility] HospitalKlvddgybqm97-92-9292 14:11-0400Diastolic blood rhkekmjq93 mm[Hg]Mckayla Harshadholz [employer] Work Phone: [facility] HospitalJerfglctio03-78-4925 14:11-0400Heart rate75 /min Mckayla Harshadholz [employer] Work Phone: [place] [address]Ydxolhzqwy81-34-8805 14:11-0400Respiratory rate18 /minMaria De Jesus Wan [employer] Work Phone: [facility] HospitalRmhogiszbx17-77-8609 14:11-3591CsT0% (BldA) [Mass fraction]90 %Mckayla Wan [employer] Work Phone: noNevada Regional Medical CenterJbpoaqcjwh29-71-9971 14:11-0400Systolic blood ixyadimd812 mm[Hg]Mckayla Sowdona [employer] Work Phone: [facility] HospitalYhlqoedhwa56-66-6839 11:21-0400Body .2 Reji Souza MD Work Phone: [facility] HospitalDlbdqomsoe18-44-8386 11:21-0400Body mass index (BMI) [Ratio]55.91 kg/d7BtowxRain Souza MD Work Phone: [address] [place], [place] [address]Qpqsillidv59-59-8072 11:21-0400Body lyhzxe281.93 kgRain Souza MD Work Phone: [facility] HospitalLamhfkizuz27-07-0680 11:21-0400Diastolic blood bdeqjfsk18 mm[Hg]Rain Souza MD Work Phone: [address] [place], [place] [address]Bwtngwsuun86-02-9087 11:21-0400Heart rate70 /min Rain Souza MD Work Phone: [facility] HospitalRwohsgsqwl64-48-5119 11:21-0400Respiratory rate16 /minRain Souza MD Work Phone: [address] [place], [place] [address]Plvgihobwe78-75-3117 11:21-3312JeP1% (BldA) [Mass fraction]91 %Rain Souza MD Work Phone: [address] [place], [place] [address]Gxjtcxnqkw93-31-3377 11:21-0400Systolic blood jvjivfai399 mm[Hg]Rain Souza MD Work Phone: [address] [place], [place] [address]Agbzwmklgv12-24-0676 17:44-0500Body mass index (BMI) [Ratio]57.31 kg/m2Mckayla Blas BUTT SAWYER Work Phone: [facility] HospitalFdftnniuum28-04-6117 17:44-0500Body temperature 98.01 [degF]Mckayla Sowdona BUTT SAWYER Work Phone: [facility] HospitalZrbzzcbadx44-26-2086 17:44-0500Body .97 kgMckayla Juanjosecayetanodallin BUTT SAWYER Work Phone: [facility] HospitalLqcloqrcxc24-66-8102 17:44-0500Diastolic blood njuybtbp02 mm[Hg]Mckayla Wan BUTT SAWYER Work Phone: [facility] HospitalYouxhizuin93-40-7502 17:44-0500Heart rate83 /min Mckayla Wan BUTT SAWYER Work Phone: [facility] HospitalEbdnwnzaph68-71-0875 17:44-0500Respiratory rate18 /minMckayla Blas BUTT SAWYER Work Phone: [facility] HospitalZduohhgdae29-55-6572 17:44-2929UiW1% (BldA) [Mass fraction]91 %Mckayla Patriciadallin BUTT SAWYER Work Phone: [facility] HospitalDzvqpsugyj02-16-8041 17:44-0500Systolic blood qnexuzbw386 mm[Hg]Mckayla Patriciadallin BUTT SAWYER Work Phone: [facility] HospitalJtcbexrjyw51-35-4437 10:00-0500Blood Pressure LocationPaalexezra ARAUZ [facility] [place] 824562-04-2024 10:00-0500Diastolic blood mm[Hg]Elbert ARAUZ [facility] [place] 824562-04-2024 10:00-0500Heart rate76 /minElbert ARAUZ [facility] [place] 824562-04-2024 10:00-0500Systolic blood dtnsobdb815 mm[Hg]Elbert ARAUZ [facility] [place] 386661-19-2024 10:20-0500Body nxbuqe502.2 Reji Souza MD Work Phone: [address] [place], [place] [address]Lyuuzhsyjy63-16-5071 10:20-0500Body mass index (BMI) [Ratio]56.7 kg/o7TmxdyRain Souza MD Work Phone: [address] [place], [place] [address]Apvodrrgrj55-04-6336 10:20-0500Body vxbmpy430.2 kgRain Souza MD Work Phone: [address] [place], [place] [address]Qawugpdedm90-27-6219 10:20-0500Diastolic blood igfuqdgq44 mm[Hg]Rain Souza MD Work Phone: [address] [place], [place] [address]Kpyrdkzzgn99-67-0110 10:20-0500Heart rate72 /min Rain Souza MD Work Phone: [address] [place], [place] [address]Bqdnqcyeez85-04-3869 10:20-0500Respiratory rate16 /minRain Souza MD Work Phone: [place] [address]Gnleterlnf36-22-4509 10:20-0500Systolic blood pqhetikx497 mm[Hg]Rain Souza MD Work Phone: [address] [place], [place] [address]Rkbznuadxw62-76-3053 10:27-0400Body .1 Jamal Blas BUTT SAWYER Work Phone: [facility] HospitalJvemwuhncd92-53-0426 10:27-0400Body mass index (BMI) [Ratio]61.01 kg/m2Mckayla Blas BUTT SAWYER Work Phone: [facility] HospitalMkdvfvuipu20-84-3544 10:27-0400Body temperature 98.49 [degF]Mckayla Blas BUTT SAWYER Work Phone: [facility] HospitalDczyorzbbi03-45-5158 10:27-0400Body nqirfa770.29 kgMckayla Blas BUTT SAWYER Work Phone: [place] [address]Ahzlhfemfg35-26-5679 10:27-0400Diastolic blood vnmkgaxi93 mm[Hg]Mckayla Blas BUTT SAWYER Work Phone: noN[facility] CenterRuuaabhqwb86-71-7595 10:27-0400Heart rate77 /min Mckayla Blas BUTT SAWYER Work Phone: [facility] HospitalLsxhlkqjkr05-14-7753 10:27-0400Respiratory rate19 /minMckayla Blas BUTT SAWYER Work Phone: [facility] HospitalDgttsyrrgx53-87-2772 10:27-3404RmY3% (BldA) [Mass fraction]92 %Mckayla Blas BUTT SAWYER Work Phone: [facility] HospitalKmqgxlajvg46-08-9462 10:27-0400Systolic blood mm[Hg]Mckayla Blas BUTT SAWYER Work Phone: [facility] HospitalFtctsutmlt19-53-9454 15:00-0400Body ccczge426.18 cmAbdul Tico Other [employer] Other 1-343760-38603885-15-6316 15:00-0400Body skifoyzxudd60.6 [degF]Stephanie Tico Other [employer] Other 850927-99-7296 15:00-0400Diastolic blood goptudnb46 mm[Hg] Stephanie Tico Other [employer] Other 08-31-2022 15:00-0400Respiratory rate20 /minAbdul Tico Other [employer] Other 6-188912-11127590-65-3739 15:00-1953GyB0% (BldA) [Mass fraction]91 % Stephanie Tico Other [employer] Other 516280-94-3726 15:00-0400Systolic blood mm[Hg] Stephanie Tico Other [employer] Other 08-15-2022 09:20-0400Body gycpbj532.18 cmAbdul Tico Other [employer] Other 08-15-2022 09:20-0400Body svtknunrjqw43.5 [degF]Stephanie Tico Other [employer] [employer] Other 08-15-2022 09:20-0400Diastolic blood yuryzkho23 mm[Hg] Stephanie Tico Other [facility] [employer] Other 08-15-2022 09:20-0400Respiratory rate20 /minAbdul Tico Other [place] [employer] Other 08-15-2022 09:20-2969KcQ7% (BldA) [Mass fraction]91 % Stephanie Tico Other [place] [employer] Other 08-15-2022 09:20-0400Systolic blood loymhiph587 mm[Hg] Stephanie Tico Other [place] [employer] Other 08-01-2022 10:24-0400Blood Pressure LocationPaarh [facility] hospitalezra ARAUZ [facility] 08-01-2022 10:24-0400Diastolic blood tivbywlm55 mm[Hg] Elbert ARAUZ [facility] 08-01-2022 10:24-0400Heart rate70 /minPaarh [facility] hospitalezra ARAUZ [facility] 08-01-2022 10:24-0400Respiratory rate16 /minPatrick REGLA [facility] 08-01-2022 10:24-0400Systolic blood uhmqcopu088 mm[Hg] Elbert ARAUZ [facility] Encounters Encounter DateEncounter TypeCare ProviderFacilityStart: 76-98-1935fwjmmiejiaZhej Jo Aichholz BAR HOST-CNPFacility:[facility]: 05-22-2025 ambulatoryLance Huey Urias DPMFacility:[facility]ertart: 05-18-2025 End: 63-72-9620exbrrnwfrtXani Jo Aichholz BAR HOST-CNPFacility:[facility]trStart: 04-29-2025 End: 72-04-6487wzhxqjjsyoJuxs J Aichholz BUTT SAWYER-C Work Phone: -[facility] ClydeStart: 04-29-2025 End: 29-64-5805Xjmiyua encounter procedureLisa Krystal Blas BUTT SAWYER-C-[facility] [place] Work Phone: Start: 04-23-2025 End: 94-75-7938jnnkjmzyzaIdudoz Nas Rojas BAR HOST-CNPFacility:[facility] FindlayStart: 04-17-2025 End: 36-00-0684etldewlzwgFexu Jo Aichholz BAR HOST-CNPFacility:[facility]ertart: 04-06-2025 End: 03-95-9692dunqnmpeynJcrj J Aichholz BUTT SAWYER-C Work Phone: [facility] Work Phone: Start: 04-06-2025 End: 81-84-8663Vzajesw encounter procedureLisa Krystal Blas BUTT SAWYER-C-[facility] [place] Work Phone: Start: 81-19-8256Hbuuboz encounter procedureMckayla Blas BUTT SAWYER-C [facility] Phone[facility]art: 10-68-0891Ozr- patient / Non-visitLanashley Urias DPM-[facility] Work Phone: Start: 54-54-6951Rjm-patient / Non-visitPrice Ramsey DO-[facility] Work Phone: Start: 30-28-4938zzfzxmviiuZfolro Nas Bob BAR HOST-MAT PUNCHER Facility:[facility] FindlayStart: 03-23-2025 End: 70-70-4543pfiknuvssjFjzgnn Nas Bob BAR HOST-CNPFacility:[facility] FindlayStart: 03-11-2025 End: 99-33-8913fsiqphjdivZwhor Huey Urias DPMFacility: [facility]trStart: 03-09-2025 End: 88-00-2017XcnvgsGztt Aichholz NP Work Phone: [facility] FMComment on above:Tobacco user; Encounter for smoking cessation counselingStart: 01-29-2025 End: 26-71-9788Oqsdod Jack Souza MD Work Phone: noms ENDOCRINOLOGYStart: 01-29-2025 End: 97-04-9265Fiysjkashley Souaz MD Work Phone: noms ENDOCRINOLOGYStart: 01-29-2025 End: 69-55-1854Acjbclwjy Result EncounterGeneric External Data ProviderNOMS External Department UnsolicitedStart: 01-29-2025 End: 95-10-8812csxxqlrlsyEWGBFRichard Negron AvailableStart: 01-29-2025 End: 01-14-0457Waaacb outpatient visit 25 minutesRain Souza MD Work [...] index (BMI) of50.0 to 59.9 in adult ([facility])Start: 01-26-2025 End: 61-83-1410goephziwmzRAXP AICHHOLZNot AvailableStart: 01-26-2025 End: 67-20-7157Uahjjfk encounter Marcela Blas NP Work Phone: noms [...] due to excess calories ([facility])Start: 01-06-2025 End: 30-90-1688rygetgairoJIQBDJH [facility] Daytontart: 12-18-2024 End: 62-07-9852ZqajtgSgjz Aichholz BUTT SAWYER Work Phone: [facility] CWM FMComment on above:Hyperlipidemia, unspecified ; Tobacco user; Encounter for smoking cessation counselingStart: 12-09-2024 End: 68-99-2821Kesyup Shirlene Blas BUTT SAWYER Work Phone: noms CWM FMStart: 12-09-2024 End: 91-69-5804Wfmpjz Shirlene Blas NP Work Phone: [facility] C[facility] FMStart: 12-09-2024 End: 27-30-1770cgdezrocubKCJU AICCayetanoHOLZNot AvailableStart: 12-09-2024 End: 75-26-0459Unpxxf outpatient visit 25 minutesMckayla Blas BUTT SAWYER Work Phone: noms CW FMComment on above:Cellulitis of left lower extremity (Primary Dx); COPD exacerbation (CMS/HCC); Primary hypertension (CMS/HCC); Pulmonary hypertension (CMS/HCC); Morbid (severe) obesity due to excess calories ([facility]/HCC); Type 2 diabetes mellitus with complication, with long-term current use of insulin ([facility]); Anxiety and depression ([facility]); Fever, unspecified fever causeStart: 12-04-2024 End: 92-05-6218Xrzpkbwoi Result EncounterGeneric External Data ProviderNOMS External Department UnsolicitedStart: 12-04-2024 End: 48-04-1191Pmqfvfhxb Result EncounterGeneric External Data ProviderNOWY External Department UnsolicitedStart: 10-27-2024 End: 80-68-9498tfmbxmxtvmOIPI AICHHOLZNot AvailableStart: 10-27-2024 End: 34-48-3561Ubknfc outpatient visit 25 minutesMckayla Blas BUTT SAWYER Work Phone: [facility] FMComment on above:Primary hypertension (CMS/HCC) (Primary Dx); Diabetic polyneuropathy associated with type 2 diabetes mellitus ([facility]/HCC); Chronic diastolic heart failure ([facility]/HCC); Bilateral lower extremity edema; Morbid (severe) obesity due to excess calories ([facility]/HCC); Type 2 diabetes mellitus with complication, with long-term current use of insulin ([facility]/HCC); Anxiety and depression ([facility]/HCC); Cigarette nicotine dependence without complication; Encounter for screening mammogram for malignant neoplasm of breast; Insomnia; Non-seasonal allergic rhinitis, unspecified trigger; Type 2 diabetes mellitus with unspecified complications; Vitamin D deficiency, unspecified; Gastro-esophageal reflux disease without esophagitis; PAD (peripheral artery disease) ([facility]/HCC); Gastroesophageal reflux disease, unspecified whether esophagitis present; Venous ulcer of right leg ([facility])Start: 10-21-2024 End: 42-81-8009BjogvyKbox Aichdallin BUTT SAWYER Work Phone: noms CWM FMComment on above:Chronic obstructive pulmonary disease, unspecifiedStart: 10-08-2024 End: 34-54-9302Eypajpggl Result EncounterLisa Blas BUTT SAWYER Work Phone: noms External Department UnsolicitedStart: 10-08-2024 End: 11-87-2949Ommbupuhy Result EncounterLisa Blas BUTT SAWYER Work Phone: noms External Department UnsolicitedStart: 10-08-2024 End: 91-82-1544Bpkgag outpatient visit 25 Adolfo Souza MD Work [...] of50.0 to 59.9 in adultStart: 10-08-2024 End: 70-77-0510uxcghcxseoFDDID F SABBAGHNot AvailableStart: 08-27-2024 End: 80-83-6934Amdwfp outpatient visit 25 minutesMckayla Wan SCHAEFER Work [...] complication, with long-term current use of insulin ([facility]); Tobacco user; Mixed hyperlipidemia ([facility]); Gout, unspecified cause, unspecified chronicity, unspecified site; Vitamin deficiency; Gastro-esophageal reflux disease without esophagitis; Edema, unspecified; Edema; Hyperlipidemia, unspecified ([facility]); Encounter for smoking cessation counseling; Venous ulcer of right leg ([facility]); Antibiotic-induced yeast infectionStart: 08-27-2024 End: 82-69-1753xtbkejexhlCFMQTaj Kendall AvailableStart: 08-27-2024 End: 94-44-0102Hdoppnabh Result EncounterGeneric External Data ProviderNOMS External Department UnsolicitedStart: 08-27-2024 End: 85-41-2780Auwtayapu Result EncounterGeneric External Data ProviderNOMS External Department UnsolicitedStart: 08-08-2024 End: 30-12-8525qvkxequthnEYUWZCleveland Clinic Akron Generaltart: 07-17-2024 End: 64-27-1095IgcwaxUtry Aichholz NP Work Phone: noms CWM FMStart: 07-14-2024 End: 15-65-3613Dqhypt outpatient visit 25 Heena lBas NP Work Phone: noms CWM FMComment on above:Primary hypertension ([facility]) (Primary Dx); Diabetic polyneuropathy associated with type 2 diabetes mellitus ([facility]); Pulmonary emphysema, unspecified emphysema type ([facility]); Critical limb ischemia of right lower extremity ([facility]); PAD (peripheral artery disease) ([facility]); Gastroesophageal reflux disease, unspecified whether esophagitis present; Bilateral lower extremity edema; Venous ulcer of right leg ([facility]); Type 2 diabetes mellitus with complication, with long-term current use of insulin ([facility]); Tobacco user; Encounter for smoking cessation counseling; Kidney stone; Adrenal mass 1 cm to 4 cm in diameter ([facility]); Radiculopathy, lumbar region; Non-seasonal allergic rhinitis, unspecified trigger; Type 2 diabetes mellitus with unspecified complications ([facility])Start: 07-14-2024 End: 35-27-8500tajmoytmjbUBWK AICHHOLZNot AvailableStart: 07-05-2024 End: 42-15-8686VmjprzQeik Aichholz SILVANO Work Phone: [facility] FMComment on above:Bilateral lower extremity edemaStart: 06-11-2024 End: 39-87-2948xodsljwpiwHlxjfww R REGLAFacility:EU SanduskyStart: 06-11-2024 End: 21-46-9443Lrrdzll encounter procedurePanaomy ARAUZ [facility] [place] Start: 05-27-2024 End: 30-01-1918Ztkcol Jack Souza MD Work Phone: noms ENDOCRINOLOGYStart: 05-27-2024 End: 93-74-4004Wckgzlyousif Souza MD Work Phone: noms ENDOCRINOLOGYStart: 05-27-2024 End: 24-49-7490aiwjcnyvplNYVDW F SABBAGHNot AvailableStart: 05-27-2024 End: 58-85-9965Uhzrdp outpatient visit 25 minutesRain Souza MD Work [...] to 59.9 in adult (CMS/HCC)Start: 05-12-2024 End: 99-82-6511Twpmflend Result EncounterGeneric External Data ProviderNOMS External Department UnsolicitedStart: 05-12-2024 End: 88-41-3357Bkmsybcvr Result EncounterGeneric External Data ProviderNOMS External Department UnsolicitedStart: 01-15-9177kflunsysmgBUMLZZOG E SILVIA Facility:EU [place]vueStart: 04-24-2024 End: 81-58-7092Cdagprsyh Result EncounterGeneric External Data ProviderNOMS External Department UnsolicitedStart: 04-24-2024 End: 56-75-4766Ebenobzcr Result EncounterGeneric External Data ProviderNOMS External Department UnsolicitedStart: 04-14-2024 End: 92-97-7858Vogslq flowsheetMckayla Blas BUTT SAWYER Work Phone: noms CWM FMStart: 04-14-2024 End: 86-37-1580Jjvauu flowsheetMckayla Blas BUTT SAWYER Work Phone: noms CWM FMStart: 04-14-2024 End: 60-27-5019Zcbjih outpatient visit 25 minutesLisa Blas BUTT SAWYER Work Phone: noms CWM FMComment on above:Primary [...] Tobacco user; Hyperpigmentation of skinStart: 04-14-2024 End: 11-01-3138rqbdtqpafaPPPX AICHRAVIZNot AvailableStart: 04-05-2024 End: 34-99-4278VcvqvzJxln Aichholz BUTT SAWYER Work Phone: noms CWM FMComment on above:Hyperlipidemia, unspecified (CMS/HCC); Bilateral lower extremity edemaVitamin D deficiency, unspecifiedStart: 64-88-0102Xtpsdtz encounter Mary Ann Souza MD Work Phone: NOMS HealthcareStart: 12-14-2023 End: 69-24-6743Nxznoskev Result EncounterLisa Harshadholz BUTT SAWYER Work Phone: noms External Department UnsolicitedStart: 12-14-2023 End: 12-16-9329Ffrkjiali Result EncounterLisa Harshadholz BUTT SAWYER Work Phone: noms External Department UnsolicitedStart: 08-31-2023 End: 79-31-0695Qszykmzgo Result EncounterAmy Cari MAYERS Work Phone: noms External Department UnsolicitedStart: 08-31-2023 End: 79-75-1887Pielyvwrj Result EncounterAmy Cari MAYERS Work Phone: noms External Department UnsolicitedStart: 08-17-2023 RefillLisa Patriciaholz BUTT SAWYER Work Phone: noms CWM FMComment on above:Vaginal yeast infection (Primary Dx)Start: 56-62-8731MswunbVwjr Aichholz BUTT SAWYER Work Phone: NOSI CWM FMComment on above:Type 2 diabetes mellitus with unspecified complications (CMS/HCC); Edema, unspecified; EdemaStart: 12-52-0407ixyegtobtwNGUBMRIOFROB LAKSHMIPATHY .Facility:L0Duboz: 12-05-2022 End: 61-19-4515Lfyktkxvqn and management of inpatientJESSICA ALONDRA .Facility:H1 Start: 11-23-2022 End: 72-70-5849prppkocwxtOTA MCKAYLA AICHHOLZFacility:Q0Qeetz: 11-22-2022 End: 48-08-0636zlyvmgdbtgFWQ MCKAYLA AICHHOLZFacility:C2Gxpla: 11-17-2022 End: 81-14-2312slxfzsfgozKJUXVLD HALKER .Facility:C4Jalzk: 11-15-2022 End: 61-63-9256Wpwbaar encounter procedureJENNIFER E SILVIA [facility] start: 10-05-2022 End: 69-47-8136ltycevelzkZDVRCB DIAB .Facility:A9Vykpn: 09-21-2022 End: 66-16-9140yxbhmgpyvsKNE MCKAYLATaryn BLASFacility:N3Jaayt: 26-30-6090nzbcnzrvzj COMFORT CULLENFacility:H8Jqwxx: 08-24-2022 End: 39-41-4943dnawvbjrxjZZ CHAPARRO S [place] .Facility:O6Ykasw: 08-21-2022 End: 12-54-3300czlnnclntwLXVNY D [facility]Fac[facility]:G9Vcmzx: 07-27-2022 End: 29-24-3607yvssumkethURVG TAMLYN .Facility:V5Qtepn: 07-18-2022 End: 30-16-7663vabdwtlrlfZGMD TAMLYN .Facility:R3Yigpf: 07-18-2022 End: 65-93-1255sqmzfknrreCAEWV D [facility]ENTERFacility:R5Efarq: 07-06-2022 End: 47-07-3976atoguomedgEDJ MCKAYLA WANFacility:I1Vtzjx: 05-11-2022 End: 05-89-9608gkkdgwjpvqMHZV VALENZUELA .Facility:X0Zfghj: 04-25-2022 End: 33-37-5996xkwxcdhzvjBA CHAPARRO S [place] .Facility:E4Vqjce: 04-20-2022 End: 96-80-2405vhypdtgwkmWCEK VALENZUELA .Facility:C0Eubsc: 03-08-2022 End: 37-00-0965umvzlgsetmWlhix [employer] Other [employer] Other Start: 66-90-6301Zmyjbo outpatient visit 15 minutes Stephanie QadirFPG NephrologyStart: 03-03-2022 End: 83-39-7489iioppiyklrNQS MCKAYLA Judicility:O6Czmgv: 02-20-2022 End: 93-47-3682qaqftnaewaDsbgj Tico Other [employer] Other Start: 43-05-5391Lsfjbb outpatient new 45 minutesAbdul QadirFPG NephrologyStart: 02-06-2022 End: 37-79-8099Zogjygv encounter procedureElbert Mahnaz ARAUZ [facility] Wilfredo start: 01-19-2022 End: 50-10-6877rwrsihvfmxOVTE SOLIS .Facility:D8Ksdzc: 12-24-2021 End: 94-32-9777vaezytzszeQEGMF PARKERFacility:C8Rrtzu: 08-26-2020 End: 53-54-3219Kpunmdu encounter procedureVITHAL GABINODGEFacility:UTMCStart: 10-30-2019 End: 55-86-6222Inzedghqq department patient visitDOFloating Hospital for Childrentart: 10-30-2019 End: 04-26-1457Gbwepawyj department patient visitAdams [facility] Emergency DepartmentStart: 36-93-9668Uwxpihwfzpun stateAbdul Tico Other rt [employer] Other Procedures DateProcedureProcedure DetailPerforming ClinicianStart: 96-67-1458WB ECHO DOPPLER COMPLETEGeneric External Data ProviderStart: 58-27-6414Pgdf bld gluc mntr dev cleared fda spec home useAhart Souza MD Work Phone: Start: 89-02-7310IEOGF CULTURE 2Generic External Data ProviderStart: 09-78-6244UJWBB CULTURE 1Generic External Data ProviderStart: 86-89-8151Njcp bld gluc mntr dev cleared fda spec home useRain Souza MD Work Phone: Start: 55-45-6218WPA UA (CLEAN/CATCH) MICROSCOPIC IF INDICATELisa Aichholz BUTT SAWYER Work Phone: Start: 79-59-2107DYF CBC WITH AUTO DIFFGeneric External Data ProviderStart: 39-41-7715Jdgf bld gluc mntr dev cleared fda spec home useRain Souza MD Work Phone: Start: 21-58-5230LF LUMBAR SPINE WO CONGeneric External Data ProviderStart: 51-82-7301AY ABDOMEN PELVIS W CONGeneric External Data ProviderStart: 30-22-3873YMI CREATININEGeneric External Data ProviderStart: 55-38-7089UMGRWKUNV BLOOD PRESSUREGeneric External Data ProviderStart: 15-79-3908KB TOMOSYNTHESIS SCREENING Chyna Blas NP Work Phone: Start: 55-30-4456KvpukonytjjPxtro Sabbagh MD Work Phone: Start: 99-00-5084RZORE CULTURE 2Generic External Data ProviderStart: 22-98-3872SINVB CULTURE 1Generic External Data ProviderStart: 73-77-1565QOO 12-LEADAmy Cari MAYERS Work Phone: Start: 49-18-1223CdctgbdljmxIhjj Aichholz NP Work Phone: Start: 07-79-4360Lezvurwnkbx observation [Identifier] in Cervix by Cyto stainMckayla Blas NP Work Phone: H/O: hysterectomyPatrick 1Ring Laparoscopic cholecystectomyPatrick 1Ring Operative procedure on footPatrick 1Ring Plan of Treatment DateCare ActivityDetailAuthorStart: 02-01-2026 End: 69-98-2773Vzfcnag encounter procedureNOMS CWM FMStart: 07-21-2026Medicare Annual Wellness (AWV)Medicare Annual Wellness (AWV)NOMS HealthcareStart: 59-36-1955Ywunk screening for proteinDiabetes: Urine Protein ScreeningNOMS HealthcareStart: 74-63-6682Ugohhjaye for malignant neoplasm of colonNOMS HealthcareStart: 99-96-1215Yuqwmibx screeningDiabetes: Retinopathy ScreeningNOMS HealthcareStart: 05-28-2025 End: 75-06-2012Fyywsqz encounter procedureNOSAINT JOHN'S HEALTH SYSTEM ENDOCRINOLOGYStart: 05-13-2025 Glaucoma screeningDiabetes: Retinopathy ScreeningPike County Memorial HospitalStart: 53-09-4456Uftqgubiie A1c measurementDiabetes: Hemoglobin A4CQCJSPike County Memorial Hospital Start: 04-29-2025 End: 81-81-1243Zxzkyca encounter procedureNOJEFFERSON COUNTY H[facility]ITAL – [facility]URI[facility] FMStart: 27-40-9127Xwuodqwsi vaccinationSALT LAKE [facility]IORAL [facility] HealthcareStart: 01-28-2025 End: 96-32-5447Ngkyxkr encounter thltzriiy63/23/2025 10:50 AM EDT Office Visit [facility] [address] [place] [address] Rain Souza MD [address] [place] [address] [facility] ENDOCRINOLOGYStart: 01-26-2025 End: 57-76-0416Ffndklh encounter hyckvsmyb69/21/2025 6:00 PM EDT [facility] [address] [place] [address] Mckayla Blas, BUTT SAWYER [address] [place] [address] [facility] FMStart: 07-11-2025Medicare Annual Wellness (AWV) Medicare Annual Wellness (AWV)[facility] HealthcareStart: 21-03-1430Usarrxzdnj A1c measurementDiabetes: Hemoglobin O7HSMGUPike County Memorial HospitalStart: 12-15-2024 End: 27-99-9126RY Breast - bilateral ScreeningBilateral screening mammogram Imaging Routine Encounter for screening mammogram for malignant neoplasm of breast Expected: 12/15/2024 (Approximate), Expires: 12/27/2025[facility] Work Phone: Comment on above:Expected: 12/15/2024 (Approximate), Expires: 12/27/2025Start: 97-38-3477Yeucppbuz for malignant neoplasm of breast MammogramPike County Memorial HospitalStart: 53-24-4298Egu[place] screening for proteinDiabetes: Urine Protein ScreeningSALT LAKE [facility] HealthcareStart: 10-27-2024 End: 80-25-7937Avmrcsc encounter ovbfanmtv95/21/2025 2:00 PM EDT Office Visit [facility] [address] [place] [address] Mckayla Blas, BUTT SAWYER [address] [place] [phone] [facility] FMStart: 10-08-2024 End: 11-78-1225Veanrtt encounter qhijjvtnh52/02/2025 11:20 AM EDT Office Visit [facility] [address] [place] [address] Rain Souza MD [address] [place] [address] [facility]Start: 08-27-2024 End: 15-62-0609Ikgfgci encounter pkfyvriwt09/19/2025 5:30 PM EST Office Visit [facility] [address] [place] [address] Mckayla Blas, SILVANO [address] [place] [phone] [facility] FMStart: 08-27-2024 End: [id number]-tzsemvqckkpjvt D3 [Mass/volume] in Serum or PlasmaVitamin D 25 hydroxy Lab Routine Vitamin deficiency Expected: 08/27/2024 (Approximate), Expires: 08/27/2025[facility] HealthcareComment on above:Expected: 08/27/2024 (Approximate), Expires: 08/27/2025Start: 90-24-0585Lacnjuocrs A1c measurement Diabetes: Hemoglobin I5NSKLMNevada Regional Medical CenterStart: 08-27-2024 End: 25-22-1116Wvrapwo function 2000 panel - Serum or PlasmaHepatic function panel Lab Routine Hyperlipidemia, unspecified ([facility]/HCC) Expected: 08/27/2024 (Approximate), Expires: 08/27/2025[facility] HealthcareComment on above:Expected: 08/27/2024 (Approximate), Expires: 08/27/2025Start: 08-27-2024 End: 99-57-5612Khlbm 1996 panel - Serum or PlasmaLipid panel Lab Routine Mixed hyperlipidemia ([facility]/HCC) Expected: 08/27/2024 (Approximate), Expires:08/27/2025 [facility] Healthcare Work Phone: Comment on above:Expected: 08/27/2024 (Approximate), Expires: 08/27/2025Start: 08-27-2024 End: 68-08-3786Cgtvyakoqzgn/Creatinine panel in random UrineMicroalbumin / creatinine, urine ratio Lab Routine Primary hypertension ([facility]) Type 2 diabetes mellitus with complication, with long-term current use of insulin ([facility]) Expected: 08/27/2024 (Approximate), Expires: 08/27/2025[facility] Healthcare Comment on above:Expected: 08/27/2024 (Approximate), Expires: 08/27/2025Start: 08-27-2024 End: 79-03-8447Uzvwn [Mass/volume] in Serum or PlasmaUric acid Lab Routine Gout, unspecified cause, unspecified chronicity, unspecified site Expected: (Approximate), Expires: 08/27/2025[facility] HealthcareComment on above: Expected: 08/27/2024 (Approximate), Expires: 08/27/2025Start: 08-27-2024 End: 93-64-6942Mzobupajba complete panel - UrineUrinalysis with reflex microscopic (clean catch) Lab Routine Primary hypertension ([facility]) Type 2 d iabetes mellitus with complication, with long-term current use of insulin ([facility]) Tobacco user Gout, unspecified cause, unspecified chronicity, unspecified site Expected: 08/27/2024 (Approximate), Expires: 08/27/2025[facility] HealthcareComment on above:Expected: 08/27/2024 (Approximate), Expires: 08/27/2025Start: 08-26-2024 End: 96-19-5760Jomtrys encounter qivjtoeon51/18/2025 10:30 AM EST Office Visit [facility] [address] [place] [address] Rain Souza MD [address], [address] [place] [address] [facility]: 07-14-2024 End: 66-42-1330Czizfgz encounter taosxbabg28/06/2025 6:30 PM EST Office Visit [facility] [address] [place] [address] Mckayla Blas NP [address] [place] [address] [facility] FMStart: 07-14-2024 End: 40-02-8462Hcchvfv encounter uhjupfycr08/06/2025 10:10 AM EST Office Visit [facility] [address] [place] [address] Rain Souza MD [address], [address] [place] [address] [facility] ENDOCRINOLOGYStart: 20-67-8705Ordqgguks vaccinationInfluenza Vaccine (#1)[facility] HealthcareComment on above:Postponed from 03/09/2024 (Patient Refused)Start: 05-27-2024 End: 02-86-1297Nfniuxf encounter zjcvbceyy57/19/2024 9:50 AM EST Office Visit [facility] [address] [place] [phone] Rain Souza MD [address] [place] [address] [facility]IN[facility]YStart: 57-40-0484Rlmeccxiqq A1c measurementDiabetes: Hemoglobin H6XJPIN HealthcareStart: 05-15-2024 End: 99-35-8397Rtbkn ysofrlunhwf50/07/2024 Abstract [facility] [address] [place] [address] Rain Souza MD [address] [place] [address] [facility]: 05-15-2024 End: 67-45-3194Kbaydlw encounter /07/2024 11:20 AM EST Office Visit [facility] [address] [place] [address] Rain Souza MD [address] [place] [address] [facility] ENDOCRINOLOGYStart: 04-17-2024 End: 45-99-8059Lmpnvyl encounter evagxtayr98/10/2024 3:40 PM EDT Office Visit [facility] [address] [place] [address] Mckayla Blas, BUTT SAWYER [address] [place] [address] [facility] FMStart: 04-14-2024 End: 90-06-4912Werbplt encounter ndxowxqkh56/07/2024 11:00 AM EDT Office Visit [facility] [address] [place] [address] Mckayla Blas, BUTT SAWYER [address] [place] [address] ArrivedNOMS CW FMComment on above:ArrivedStart: 03-09-2024 Influenza vaccinationInfluenza Vaccine (#1)[facility] HealthcareStart: 02-19-2024 Hemoglobin A1c measurementDiabetes: Hemoglobin S3AXLVT HealthcareStart: 24-99-6160Xoexg screening for proteinDiabetes: Urine Protein ScreeningNOWY HealthcareStart: 54-16-4203Vqnzqyayq for malignant neoplasm of breastMammogram [facility] HealthcareStart: 10-15-2023 End: 24-97-5262Fqzgskv encounter /08/2024 4:30 PM EDT Office Visit [facility] [address] [place] [address] Mckayla Blas, BUTT SAWYER [address] [place] [address] [facility] FMStart: 15-49-4685Dmxkrcawym A1c measurement Diabetes: Hemoglobin H4BZEAU HealthcareStart: 64-56-5762Kikpzxlj screening Diabetes: Retinopathy ScreeningNOWY HealthcareStart: 39-54-7619Lpescmdnx vaccinationFlu vaccine (Season Ended)[facility]: 10-07-2018 Screening for malignant neoplasm of cervixNOWY HealthcareStart: 81-51-8913Zgsif panelLipid screenShelby Memorial Hospital: 41-72-6127Zsyrhdsoa for malignant neoplasm of cervixHPV/CotestNOWY HealthcareStart: 87-87-1981Lwtrroxxk for malignant neoplasm of cervixCervical cancer [facility]: 93-21-3791EVsG/Tdap/Td vaccine (1 - Tdap)DTaP/Tdap/Td vaccine (1 - Tdap)[facility]: 45-84-4121BUH screeningHIV [facility]: 02-17-1971Medicare Annual Wellness (AWV)Medicare Annual Wellness (AWV)[facility] HealthcareStart: 85-33-5750Gkiowtjyw for malignant neoplasm of colonNOMS HealthcareBLOOD CULTURE 1BLOOD CULTURE 1 Lab Routine 12/04/2024 4:44 PM EDTNOMS HealthcareBLOOD CULTURE 2BLOOD CULTURE 2 Lab Routine 12/04/2024 5:28 PM EDTNOWY Healthcare Immunizations Immunization DateImmunizationNotesCare WunnnvbqAhewjvim02-05-3709jmistadit, injectable, quadrivalent, contains preservativeMckayla Blas BUTT SAWYER Work Phone: NON[facility] CenterOujayzuwyy10-90-6479yielduzvv virus vaccine, unspecified formulationRain Souza MD Work Phone: [facility]01-11-2022SARS-CoV-2 (COVID-19) mRNA BNT-162b2 vaxJENNIFER SILVIA [facility]04-22-2021SARS-CoV-2 (COVID-19) mRNA BNT-162b2 vaxJENNIFER SILVIA [facility]04-02-2021SARS-CoV-2 (COVID-19) mRNA BNT-162b2 vaxJENNIFER SILVIA [facility]10-09-2017influenza virus vaccine, H5N1, A/ (national stockpile)Mckayla Blas BUTT SAWYER Work Phone: [facility] HospitalBxldohekeg88-32-9540tnaqphtpc virus vaccine, unspecified formulationRain Souza MD Work Phone: NON[facility] CenterLxgsarlguw29-58-9691bzehzbnnf, unspecified formulationPaarh our lady of the way hospitalk ARAUZ [facility] [place] 386660-09-2017pneumococcal polysaccharide vaccine, 23 valMunira Souza MD Work Phone: [facility] Kdnuwqyihg10-25-4095yccpskycf virus vaccine, H5N1, A/ (national stockpile)Mckayla Blas BUTT SAWYER Work Phone: noNev[facility] Regional Medical CenterFrgxyhlmjp36-14-8812xoxzkllvk virus vaccine, unspecified formulationRain Souza MD Work Phone: noNev[facility] Regional Medical CenterHybnvihhmo66-70-3047pxgirziua, unspecified formulationPatrick ARAUZ [facility]10-25-2013influenza virus vaccine, whole virusRain Souza MD Work Phone: NONev[facility] Medical CenterNbztknicno10-91-3267iehiadhdr, injectable, quadrivalent, contains preservativeLisa Aichholz BUTT SAWYER Work Phone: [facility] HospitalCfctmfhbti54-29-4589pesrjmfxs, wholePatrick ARAUZ [facility] Hospitaly07-24-1998measles, mumps and rubella virus vaccineRain Souza MD Work Phone: [facility] Healthcare Payers DatePayer CategoryPayerPolicy [id number] 2024Medicare (Managed Care)[id number] Health [id number] [id number] 2019[place]icaid[place] [id number] 2018-Present [phone] [address] [place] [address]Medicaid [id number] 2013Medicare [id number] 2.16.840.1.699296.3.57[id number] 2.16.840.1.266227.3.57[id number] 2.16.840.1.067292.3.57[id number] 2..840.1.911771.3.57[id number] 2..840.1.429535.3.579.2.06767-14-3278Fcdbjec8202884 2.840.1.534367.3.579.2.10632-61-9723Kuengrr2511027 2.840.1.029410.3.579.2.02719-85-6665Ibpfdya3153025 2.840.1.837301.3.57[id number] 2.0.1.383971.3.579.2.09964-44-9032Eyzcmju7546651 2.840.1.006871.3.579.2.26818-08-6926Fhcwwtr5163304 2.840.1.341677.3.579.2.68709-64-4017Vpvprbr4906150 2.840.1.619071.3.579.[id number] 2.840.1.462230.3.579.[id number] 2.840.1.307042.3.579.2.84189-22-2427Hfyiojb1704329 2.840.1.651325.3.579.2.08924-53-9499Shramjb5042129 2.840.1.193442.3.579.2.67668-50-1251Ffjkgfe6654396 2.840.1.459832.3.579.2.85391-61-2533Gvxjydl0065990 2.16.840.1.234844.3.579.2.44146-26-4453Rhfvmll6063966 2.0.1.237536.3.579.2.56135-79-6974Mqppxrc1018882 2.840.1.811592.3.579.2.67981-55-7053Pghfhta0782656 2.840.1.408705.3.579.2.25587-55-4948Hqiilmf9975291 2.0.1.452102.3.579.2.16127-85-1965Olodnig5163881 2..1.686065.3.579.2.27528-83-9114Zryqajh00124045 2..1.020227.3.579.2.570077-38-8484Bvvwjdc21033440 2..1.486508.3.579.2.992311-16-8316Gvfmbup30798410 2..1.352130.3.579.2.955075-35-0996Kzlhmem2728319 2..1.833894.3.579.2.549168-53-3312Iazvkon6711570 2..1.127967.3.579.2.357100-04-2501Msfndql7384255 2..1.694316.3.579.2.741080-88-3676Ppmgtyh7940415 2..1.625897.3.579.2.780957-99-8198Dmmdiya6635249 2.0.1.095740.3.579.2.320207-39-8652Axlrhnu3444344 2.0.1.184830.3.579.2.612540-42-0187Qasjqme37046436 2.16.840.1.833536.3.579.2.98124-12-2334Xrvcbhn42910397 2.16.840.1.273211.3.579.2.46995-76-7816Cioqjye631358027 2.16.840.1.152145.3.579.2.22072-39-9886Dogsrzv632718236 2.16.840.1.881846.3.579.2.79514-75-5343Duafccb269001389 2.16.840.1.483792.3.579.2.70644-39-9422Hotgymt087381893 2.16.840.1.211240.3.579.2.04455-74-0073Bxdrsgg261490839 2.840.1.685359.3.579.2.06602-72-7636Xktlhtn207467796 2.16.840.1.589451.3.579.2.53803-87-2073Rzfaysv697216667 2.16.840.1.634823.3.579.2.07027-11-5954Rwpqdmf870944710 2.16.840.1.447313.3.579.2.12184-11-9390Oyyxjry908189407 2.840.1.113549.3.579.2.75420-95-6623Oojlbjw555410275 2.16.840.1.125333.3.579.2.42893-64-9159Cuyoekw837255979 2.16840.1.457792.3.579.2.196 [id number] 1960Private Health [id number] 2.16.840.1.910589.19 [id number] [id number] [id number]s Auto/[id number] 889h4835-4r1o-6yv2-6137-u38k4o2ces71 Social History DateTypeDetailFacilityStart: 02-17-2014 End: 05-93-9781Csfmonu smoking status NHISCurrent every day smokerShelby Memorial Hospital: 12-61-3505Nugtjxd of tobacco useCigarette SmokerShelby Memorial Hospital: 02-17-2014 End: 26-31-6349Icyfaeiofq smoked current (pack per day) - ReportedShelby Memorial Hospital: 25-83-3564Fczndyu intakeCurrent drinker of alcohol (finding)[facility]: 18-32-5840Pxxxksj CommentRareMHenry County Hospital: 93-80-8336Vsh Assigned At BirthNot on fileCharleston, KYExposure to SARS-CoV-2 (event)Unable to assessProMedica Memorial Hospitalart: 13-89-0099Jzaoafv smoking statusSmoker (finding)[facility] start: 07-10-2023 End: 23-36-6638Vng Assigned At BirthFemaleExec[facility] start: 11-15-2022 End: 50-84-3841Ceogsfb smoking statusHeavy tobacco smoker (finding)[facility] Hospitaltart: 07-10-2023 End: 34-60-5867Mytqkoa use and exposureSmokeless tobacco non-userNOMS Healthcare Start: 07-10-2023 End: 27-57-5051Isvhcup intakeLifetime non-drinker (finding)[facility] HealthcareWithin the last year, have you been afraid of your partner or ex-partner?NoNOMS HealthcareDo you belong to any clubs or organizations such as mosque groups, unions, fraternal [...] drinks on 1 occasion?Less than monthlyNOMS HealthcareStart: 50-10-4761Ffl hard is it for you to pay [...] doctor or pharmacy [SILS]RarelyNOMS HealthcareSexFemale (finding)[facility] Start: 65-42-8091Trf [facility] At [facility]N [facility] HospitalNEGATED: Highlighted [facility] Medical Equipment Procedure CodeEquipment CodeEquipment Original TextEquipment IdentifierDates [id number]: 14-65-1737UXJ TO TEST BLOOD SUGAR 4 TIMES [id number]: 07-07-2024 Functional Status IbnfXctmmgqbafPikeubCjipfesz07-20-2309Udadvmb Health Questionnaire 2 item (PHQ- 2) [Reported][facility] HospitalOggjenfwar46-63-3887Pchgiir falling or staying asleep, or sleeping too muchNot at all 01/26/2025 4:13 PM EDT Mychart, Generic Not at all [facility] HospitalAczriqcpwp69-30-3273Vkzwtoa tired or having little energyNot at all 01/26/2025 4:13 PM EDT Mychart, Generic Not at [facility] ReadingEanthlebmv75-97-7451Phqt appetite or overeatingNot at all 01/26/2025 4:13 PM EDT Mychart, Generic Not at [facility] ReadingWgsdbjukpd37-98-7885Dvcsxzh bad about yourself-or that you are a failure or have let yourself or your family downNot at all 01/26/2025 4:13 PM EDT Mychart, Generic Not at [facility] ReadingYbqhhdueba64-03-8591Bjtlubg concentrating on things, such as reading the newspaper or watching televisionNot at all 01/26/2025 4:13 PM EDT Mychart, Generic Not at [facility] ReadingEpnzdnjntb60-21-2927 Moving or speaking so slowly that other people could have noticed. Or the opposite - being so fidgety or restless that you have been moving around a lot more than usualNot at all 01/26/2025 4:13 PM EDT Mychart, Generic Not at [facility] ReadingOkdzimqgdc21-93-6866Fosqyjcp that you would be better off , or of hurting yourself in some wayNot at all 01/26/2025 4:13 PM EDT Mychart, Generic Not at [facility] ReadingKwbeyxdxmf98-17-2457Dcpiq score [AUDIT-C]1 08/26/2024 6:13 PM EST Mychart, GenericPike County Memorial HospitalDriplvpvsz04-66-8743Xca often do you have a drink containing alcohol?Monthly or less 08/26/2024 6:13 PM EST Mychart, Generic Monthly or lessPike County Memorial HospitalIpdgyxttzx88-55-5953Kor many standard drinks containing alcohol do you have on a typical day?1 or 2 08/26/2024 6:13 PM EST Mychart, Generic 1 or 2NOMS Ikgiiynnru01-02-1321Exa often do you have 6 or more drinks on 1 occasion?Never 08/26/2024 6:13 PM EST Mychart, Generic [facility] 99-66-3962Hkjytcctdt StatusN/AExec[facility]07-11-2024How difficult have these problems made it for you to do your work, take care of things at home, or get along with other people?Not difficult at all 01/17/2024 10:08 AM Marilyn Dunbar MA Not difficult at allPike County Memorial HospitalJnoklcyfrt18-17-9993Ezfvvte Health Questionnaire 2 item (PHQ-2) [Reported][facility] HospitalMayjcvcrfs37-12-0088Pwzkgvg Health Questionnaire 2 item (PHQ-2) [Reported][facility] HospitalDcfbwwblpm02-06-7601Iwxycttpug StatusN/AExec[facility]08-01-2022Functional StatusN/AExec[facility] Clinical Notes 01-19-2022 to 04-06-2025 Note Date & FfvyQctwQmiiojyh69-95-7092 Evaluation note* Diagnosis Onset Date Resolution Status [...] 2024 5:50pmVenous insufficiencyacuteOctober 2024 5:50pm [facility] Work Phone: 1(744) 673-506007-30-2025 NotePlease let her know her ECHO showed some improvement in the left side wall thickness, it was severely enlarged, now it is moderate. Important for good BP control to continue to improve this. Everything else looks good. Follow-up as planned in 6 months. Thanks![facility]07-24-2025 History of Present illness Narrative* Rain Souza [...] 96, on lantus 58 units bid, lispro 9-86-53zgqhw plus ISS, Trulicity 4.5 mg weekly. meter give us error during download IM 03/2022 follow up visit on 03/14/2022, A1c in the office 9.4, bg 142, on lantus 58 units bid, lispro 2-32-38zcynf plus ISS, Trulicity 4.5 mg weekly. lab [...] 25 mg, Oral, 2 times daily HYDROcodone-acetaminophen ([place]) 5-325 MG tablet 1 tablet, 3 times [...] Insomnia 09/17/2023 [facility] (current) use of insulin ([facility]) [...] index (BMI) of50.0 to 59.9 in adult ([facility]) Diet and exercise reviewed with the patient Follow up in about 4 months (around 06/01/2025). 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 * Mckayla Blas NP [...] 25 mg, Oral, 2 times daily HYDROcodone-acetaminophen ([place]) 5-325 MG tablet 1 tablet, 3 times [...] Insomnia 09/17/2023 [facility] (current) use of insulin ([facility]) [...] MEDICAL CENTER) Current meds: albuterol, duoneb, 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 Hypertension Please check blood [...] obesity due to excess calories ([facility]) Discussed with patient their BMI [...] on a yearly basis documented in this encounterPike County Memorial HospitalDsjssquwyf78-64-2709 Instructions* Patient Instructions* Mckayla Blas NP - 01/26/2025 6:00 PM EDT [facility] call the [facility] to schedule your mammogram: [phone]- ext [phone] documented in this encounterPike County Memorial HospitalTrkqxdjuww91-09-1523 NoteCardiovascular Medicine [facility] SUBJECTIVE Chief Complaint Patient presents with Congestive Heart Failure Hypertension Hyperlipidemia Mitzi Macias is a 54 y.o. female here for follow-up. PMHx: HFpEF, HTN, HLD, DM, longstanding heavy smoker, COPD, DANIEL, morbid obesity HPI 01/06/2025 Since last seen she was admitted to [facility] for AMS on 12/05/2024. 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 2 diabetes mellitus ([facility]CC) Myelolipoma of adrenal gland Venous ulcer of right leg ([facility]) Chronic diastolic heart failure ([facility]) Antibiotic-induced yeast infection Cellulitis of left lower extremity Cigarette nicotine dependence without complication Fever Idiopathic chronic venous hypertension of both lower extremities with ulcer ([facility]) FCI current use of inhaled steroid Vitamin D deficiency, unspecified Vitamin deficiency Past Medical History: Diagnosis Date COPD (chronic obstructive pulmonary disease) ([facility]) Diabetes mellitus ([facility]) Hyperlipidemia Hypertension Sleep apnea Family [...] , Rfl: ergocalciferol (Vitamin D-2) 1.25 MG (79537 Units) capsule, Take 1.25 mg by mouth., [...] and at bedtime., Disp: , Rfl: HYDROcodone-acetaminophen ([place]) 5-325 mg tablet, TAKE 1 TABLET BY MOUTH THREE TIMES A DAY NEEDED FOR PAIN MUST LAST 30 DAYS, Disp: , Rfl: insulin aspart (NovoLOG) 100 unit/mL (3 mL) injection pen, Novolog Flexpen U-100 Insulin aspart 100 unit/mL (3 mL) subcutaneous, Disp: , Rfl: insulin glargine (Lantus Solostar U-100 Insulin) 100 unit/mL (3 mL) injection pen (more content not included)...[facility]07-01-2025 NotePatient is here today for a 6 [...] and weight gain. Cardiovascular: Positive for leg swelling.[facility] 12-09-2024 History of Present illness Narrative* Mckayla [...] bad light. She was ultimately taken to [facility] ER, no tox screen was done [...] 25 mg, Oral, 2 times daily HYDROcodone-acetaminophen ([place]) 5-325 MG tablet 1 tablet, 3 times [...] CT Albuminuria 09/17/2023 Angiomyolipoma Anxiety and depression ([facility]) 07/10/2023 Asthma 07/10/2023 Body mass index (BMI) 50.0-59.9, adult ([facility]) Cellulitis of left lower extremity Cervical cancer ([facility]) 09/17/2023 Chronic pain of both knees 09/17/2023 COPD (chronic obstructive pulmonary disease) ([facility]) 07/10/2023 COPD exacerbation ([facility]) 09/17/2023 Decreased functional mobility 09/17/2023 Diabetic neuropathy ([facility]) 07/10/2023 Dietary counseling and surveillance Edema 07/10/2023 Elevated sed rate Elevated WBC count Essential (primary) hypertension ([facility]) GERD (gastroesophageal reflux disease) 09/17/2023 Hyperlipidemia ([facility]) 09/17/2023 Hypertension ([facility]) 07/10/2023 Insomnia 09/17/2023 [facility]CI (current) use of insulin ([facility]) Lower extremity edema 09/17/2023 Mixed hyperlipidemia ([facility]) Morbid (severe) obesity due to excess calories ([facility]) Obstructive sleep apnea 07/10/2023 PAD (peripheral artery disease) ([facility]) 09/17/2023 Pancreatitis 09/17/2023 Pneumonia 09/17/2023 Proteinuria, unspecified Pulmonary hypertension ([facility]) 09/17/2023 Radiculopathy, lumbar region 09/17/2023 Tobacco user 09/17/2023 Type 2 diabetes mellitus with complication, with long-term current use of insulin ([facility]) 07/10/2023 Unilateral primary osteoarthritis, right [...] Problem List Items Addressed This Visit Hypertension ([facility]) Please check blood pressure daily and record DASH diet Limit caffeine Take medication as directed Contact office if chest pain, pressure, dizziness, shortness of breath, swelling legs Recommend slow position changes Current meds: hydralazine, lisinopril, Type 2 diabetes mellitus with complication, with long-term current use of insulin ([facility]) Check blood sugars daily, notify [...] secondary to her steroids Anxiety and depression ([facility]) Current meds: elavil, duloxtine, COPD exacerbation ([facility]) Recent ER visit for unresponsiveness , found to have fever and elevated WBC Sent home with steroids and atb Breathing is better and she feels back to her normal baseline Does have home O2, she is not wearing this today Pulmonary hypertension (CMS/HCC) Has seen [facility] [place] Cardiology Morbid (severe) obesity due to excess calories ([facility]) Discussed with patient their BMI [...] 7:24 AM EDTAssociated Problem(s): Anxiety and depression ([facility]) Current meds: elavil, duloxtine, * Mckayla Blas NP - 12/09/2024 7:24 AM EDTAssociated Problem(s): Type 2 diabetes mellitus with complication, with long-term current use of insulin ([facility]) Check blood sugars daily, notify [...] not wearing this today documented in this encounterPike County Memorial [id number] Instructions* Patient Instructions* Mckayla Blas NP - 12/09/2024 10:00 AM EDT Keep appt with wound care today Keep fu with me, sooner if needed documented in this encounterPike County Memorial [id number] History of Present illness Narrative* Mckayla Blas [...] PM EDTAssociated Problem(s): PAD (peripheral artery disease) ([facility]) Asa, statin Quit smoking BP [...] 25 mg, Oral, 2 times daily HYDROcodone-acetaminophen ([place]) 5-325 MG tablet 1 tablet, 3 times [...] CT Albuminuria 09/17/2023 Angiomyolipoma Anxiety and depression ([facility]) 07/10/2023 Asthma 07/10/2023 Body mass index (BMI) 50.0-59.9, adult ([facility]) Cellulitis of left lower extremity Cervical cancer ([facility]) 09/17/2023 Chronic pain of both knees 09/17/2023 COPD (chronic obstructive pulmonary disease) ([facility]) 07/10/2023 COPD exacerbation ([facility]) 09/17/2023 Decreased functional mobility 09/17/2023 Diabetic neuropathy ([facility]) 07/10/2023 Dietary counseling and surveillance Edema 07/10/2023 Elevated sed rate Elevated WBC count Essential (primary) hypertension ([facility]) GERD (gastroesophageal reflux disease) 09/17/2023 Hyperlipidemia ([facility]) 09/17/2023 Hypertension ([facility]) 07/10/2023 Insomnia 09/17/2023 FCI (current) use of insulin ([facility]) Lower extremity edema 09/17/2023 Mixed hyperlipidemia ([facility]) Morbid (severe) obesity due to excess calories ([facility]) Obstructive sleep apnea 07/10/2023 PAD (peripheral artery disease) ([facility]) 09/17/2023 Pancreatitis 09/17/2023 Pneumonia 09/17/2023 Proteinuria, unspecified Pulmonary hypertension ([facility]) 09/17/2023 Radiculopathy, lumbar region 09/17/2023 Tobacco user 09/17/2023 Type 2 diabetes mellitus with complication, with long-term current use of insulin ([facility]) 07/10/2023 Unilateral primary osteoarthritis, right [...] List Items Addressed This Visit Diabetic neuropathy ([facility]) - Primary Continue with cintia hudson mgmt is prescribing OARRS reviewed Fu in 3 months Goal: tighter glucose control, this has been improving, latest A1c is 7.4%!!! Hypertension ([facility]) Please check blood pressure daily and record DASH diet Limit caffeine Take medication as directed Contact office if chest pain, pressure, dizziness, shortness of breath, swelling legs Recommend slow position changes Current meds: hydralazine, lisinopril, Relevant Medications hydrALAZINE (Apresoline) 25 MG tablet lisinopril 20 MG tablet Type 2 diabetes mellitus with complication, with long-term current use of insulin ([facility]) Check blood sugars daily, notify [...] 81 MG chewable tablet Anxiety and depression ([facility]) Current meds: elavil, duloxtine, Relevant Medications DULoxetine [...] mounjaro for DM Chronic diastolic heart failure ([facility]) Current meds; asa, farxiga, lasix, hydralazine, lisinopril, Follows with cardilogy Reviewed 08/02 notes Cigarette nicotine dependence without complication Is currently using chantix, and is doing well, less desire, smoking less Vitamin D deficiency, unspecified Relevant Medications ergocalciferol (Vitamin D2) 1.25 MG (25550 UT) capsule Gastro-esophageal reflux disease without esophagitis [...] latest A1c is 7.4%!!! documented in this [facility]04-21-2025 Instructions* Patient Instructions* Mckayla Blas NP - 10/27/2024 2:00 PM EDT No dose changes in meds You will be due for mammogram I will send order to [facility], they should call you to schedule If no call, please call [phone] ext [phone] documented in this encounterPike County Memorial [id number] History of Present illness Narrative* Rain Souza [...] 96, on lantus 58 units bid, lispro 1-66-49nvrli plus ISS, Trulicity 4.5 mg weekly. meter give us error during download IM 03/2022 follow up visit on 03/14/2022, A1c in the office 9.4, bg 142, on lantus 58 units bid, lispro 0-67-67blpyi plus ISS, Trulicity 4.5 mg weekly. lab [...] or chew. ergocalciferol (Vitamin D2) 1.25 MG (34223 UT) capsule TAKE 1 CAPSULE BY MOUTH [...] 25 mg, Oral, 2 times daily HYDROcodone-acetaminophen ([place]) 5-325 MG tablet 1 tablet, 3 times [...] CT Albuminuria 09/17/2023 Angiomyolipoma Anxiety and depression ([facility]) 07/10/2023 Asthma ([facility]) 07/10/2023 Body mass index (BMI) 50.0-59.9, adult ([facility]) Cellulitis of left lower extremity Cervical cancer ([facility]) 09/17/2023 Chronic pain of both knees 09/17/2023 [facility] 07/10/2023 COPD exacerbation ([facility]) 09/17/2023 Decreased functional mobility 09/17/2023 Diabetic neuropathy ([facility]) 07/10/2023 Dietary counseling and surveillance Edema 07/10/2023 Elevated sed rate Elevated WBC count Essential (primary) hypertension ([facility]) GERD (gastroesophageal reflux disease) 09/17/2023 Hyperlipidemia ([facility]) 09/17/2023 Hypertension ([facility]) 07/10/2023 Insomnia 09/17/2023 FCI (current) use of insulin ([facility]) Lower extremity edema 09/17/2023 Mixed hyperlipidemia ([facility]) Morbid (severe) obesity due to excess calories ([facility]) Obstructive sleep apnea 07/10/2023 PAD (peripheral artery disease) ([facility]) 09/17/2023 Pancreatitis 09/17/2023 Pneumonia 09/17/2023 Proteinuria, unspecified Pulmonary hypertension ([facility]) 09/17/2023 Radiculopathy, lumbar region 09/17/2023 Tobacco user 09/17/2023 Type 2 diabetes mellitus with complication, with long-term current use of insulin ([facility]) 07/10/2023 Unilateral primary osteoarthritis, right [...] hyperglycemia, with long-term current use of insulin ([facility]) - POCT glucose manually resulted [...] 4 months (around 02/07/2025). documented in this encounterPike County Memorial [id number] History of Present illness Narrative* Mckayla Blas [...] or chew. ergocalciferol (Vitamin D2) 1.25 MG (44581 UT) capsule TAKE 1 CAPSULE BY MOUTH [...] 25 mg, Oral, 2 times daily HYDROcodone-acetaminophen ([place]) 5-325 MG tablet 1 tablet, 3 times [...] CT Albuminuria 09/17/2023 Angiomyolipoma Anxiety and depression ([facility]) 07/10/2023 Asthma ([facility]) 07/10/2023 Body mass index (BMI) 50.0-59.9, adult ([facility]) Cellulitis of left lower extremity Cervical cancer ([facility]) 09/17/2023 Chronic pain of both knees 09/17/2023 COPD (chronic obstructive pulmonary disease) ([facility]) 07/10/2023 COPD exacerbation ([facility]) 09/17/2023 Decreased functional mobility 09/17/2023 Diabetic neuropathy ([facility]) 07/10/2023 Dietary counseling and surveillance Edema 07/10/2023 Elevated sed rate Elevated WBC count Essential (primary) hypertension ([facility]) GERD (gastroesophageal reflux disease) 09/17/2023 Hyperlipidemia ([facility]) 09/17/2023 Hypertension ([facility]) 07/10/2023 Insomnia 09/17/2023 FCI (current) use of insulin ([facility]) Lower extremity edema 09/17/2023 Mixed hyperlipidemia ([facility]) Morbid (severe) obesity due to excess calories ([facility]) Obstructive sleep apnea 07/10/2023 PAD (peripheral artery disease) ([facility]) 09/17/2023 Pancreatitis 09/17/2023 Pneumonia 09/17/2023 Proteinuria, unspecified Pulmonary hypertension ([facility]) 09/17/2023 Radiculopathy, lumbar region 09/17/2023 Tobacco user 09/17/2023 Type 2 diabetes mellitus with complication, with long-term current use of insulin ([facility]) 07/10/2023 Unilateral primary osteoarthritis, right [...] List Items Addressed This Visit Diabetic neuropathy ([facility]) Continue with cintia hudson is prescribing OARRS reviewed Fu in 3 months Goal: tighter glucose control Hypertension ([facility]) Please check blood pressure daily [...] complication, with long-term current use of insulin ([facility]) Check blood sugars daily, notify [...] obesity due to excess calories ([facility]) Discussed with patient their BMI [...] complication, with long-term current use of insulin ([facility]) Check blood sugars daily, notify [...] obesity due to excess calories ([facility]) Discussed with patient their BMI [...] AM ESTAssociated Problem(s): Chronic diastolic heart failure ([facility]) Current meds; asa, farxiga, lasix, hydralazine, lisinopril, Follows with cardilogy Reviewed 08/02 notes * Mckayla Blas NP - 08/27/2024 7:31 AM ESTAssociated Problem(s): COPD (chronic obstructive pulmonary disease) ([facility]) Follows with verena Needs smoking cessation Current meds: duoneb, albuterol, daliresp, * Mckayla Blas NP - 08/27/2024 7:30 AM ESTAssociated Problem(s): Asthma ([facility]) Current meds: albuterol, duoneb, 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 * Mckayla Blsa NP - 08/27/2024 7:29 AM ESTAssociated Problem(s): [...] Goal: tighter glucose control documented in this encounterPike County Memorial [id number] NoteUT Cardiology - [facility] Subjective Mitzi Macias is a [...] Diagnosis Date COPD (chronic obstructive pulmonary disease) ([facility]) Diabetes mellitus ([facility]) Hyperlipidemia Hypertension Sleep apnea Past [...] , Rfl: ergocalciferol (Vitamin D-2) 1.25 MG (48669 Units) capsule, Take 1.25 mg by mouth., [...] and at bedtime., Disp: , Rfl: HYDROcodone-acetaminophen ([place]) 5-325 mg tablet, TAKE 1 TABLET BY [...] SUBCUTANEOUSLY TWICE DAILY, Disp: (more content not included)...[facility]01-06-2025 History of Present illness Narrative* Mckayla Blas [...] or chew. ergocalciferol (Vitamin D2) 1.25 MG (80128 UT) capsule TAKE 1 CAPSULE BY MOUTH ONE TIME PER WEEK furosemide (LASIX) 40 mg, Oral, Daily furosemide (LASIX) 20 mg, Oral, Daily PRN, Take in the afternoon as needed hydrALAZINE (APRESOLINE) 25 mg, Oral, 2 times daily HYDROcodone-acetaminophen ([place]) 5-325 MG tablet 1 tablet, 3 times [...] CT Albuminuria 09/17/2023 Angiomyolipoma Anxiety and depression ([facility]) 07/10/2023 Asthma ([facility]) 07/10/2023 Body mass index (BMI) 50.0-59.9, adult ([facility]) Cellulitis of left lower extremity Cervical cancer ([facility]) 09/17/2023 Chronic pain of both knees 09/17/2023 COPD (chronic obstructive pulmonary disease) ([facility]) 07/10/2023 COPD exacerbation ([facility]) 09/17/2023 Decreased functional mobility 09/17/2023 Diabetic neuropathy ([facility]) 07/10/2023 Dietary counseling and surveillance Edema 07/10/2023 Elevated sed rate Elevated WBC count Essential (primary) hypertension ([facility]) GERD (gastroesophageal reflux disease) 09/17/2023 Hyperlipidemia ([facility]) 09/17/2023 Hypertension ([facility]) 07/10/2023 Insomnia 09/17/2023 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 ([facility]) Lower extremity edema 09/17/2023 Mixed hyperlipidemia ([facility]) Morbid (severe) obesity due to excess calories ([facility]) Obstructive sleep apnea 07/10/2023 PAD (peripheral artery disease) ([facility]) 09/17/2023 Pancreatitis 09/17/2023 Pneumonia 09/17/2023 Proteinuria, unspecified Pulmonary hypertension ([facility]) 09/17/2023 Radiculopathy, lumbar region 09/17/2023 Tobacco user 09/17/2023 Type 2 diabetes mellitus with complication, with long-term current use of insulin ([facility]) 07/10/2023 Unilateral primary osteoarthritis, right [...] List Items Addressed This Visit Diabetic neuropathy ([facility]) Continue with tristan EAST reviewed Fu in 3 months COPD (chronic obstructive pulmonary disease) ([facility]) Stable at this time, no changes in meds Encouraged smoking cessation Cont with dr Yañez Hypertension ([facility]) - Primary Please check blood pressure daily and record DASH diet Limit caffeine Take medication as directed Contact office if chest pain, pressure, dizziness, shortness of breath, swelling legs Recommend slow position changes Current meds: hydralazine, lisinopril, Type 2 diabetes mellitus with complication, with long-term current use of insulin ([facility]) Check blood sugars daily, notify [...] Critical limb ischemia of right lower extremity ([facility]) Saw vascular, does have narrowing in arteries in legs, and thus the wounds not healing At this point they strongly urge to quit smoking or risk limb amputation Cont asa and statin Also good blood pressure and sugar control Venous ulcer of right leg ([facility]) Encounter for smoking cessation counseling Relevant Medications [...] complication, with long-term current use of insulin ([facility]) Check blood sugars daily, notify [...] Fu in 3 months documented in this encounterPike County Memorial [id number] Hospital Discharge instructions Patient Education 06/11/2024 10:44:08 [...] require a prescription. You can also purchase jswg-qrc-khtreeg medicines. Medicines may have nicotine in them [...] and encouragement. Call telephone quitlines, such as 9-531-OUTY-NOW, reach out to support groups, or work [...] provider. Document Revised: 06/16/2022 Document Reviewed: 06/16/2022 [employer] Patient Education 2023 [employer]. 06/11/2024 10:39:22 Dietary Guidelines to Help Prevent [...] include: ?8 oz (237 mL) of milk, ifpiold-ynvxzamkocdc-bmged milk, and calcium- fortifiedfruit juice. Calcium-fortified means [...] potatoes, and Congolese chard. ?Peanuts. ?Potato chips, canadian fries, and baked potatoes with skin on. ?Nuts and nut products. ?Chocolate. If you regularly take a diuretic medicine, make sure to eat at least 1 or 2 servings of fruits or vegetables that are high in potassium each day. These include: ?Avocado. ?Banana. ?Mora, prune, carrot, or tomato juice. ?Baked potato. [...] magnesium, fish oil, or vitamin B6. Take ehjz-jji-vphfssb and prescription medicines only as told by [...] Casseroles. Pizza. Lasagna. Frozen meals. Potato chips. Haitian fries. The items listed above may not [...] provider. Document Revised: 10/05/2022 Document Reviewed: 10/05/2022 [employer] Patient Education 2023 [employer]. Follow Up Care 05/06/2024 08:24:56 With:REGLA PHIPPS, Elbert Joya, URL Address: [facility] [address] , [place] [address]- When: Unknown [facility] [place] 12-04-2024 NotePatient Education Nephrology Dietary Guidelines to [...] ? 8 oz (237 mL) of milk, mfzucsg-ejnrwatmkcco-uxkbf milk, and calcium- fortifiedfruit juice. Calcium-fortified means [...] Spinach (cooked), rhubarb, beets, sweet potatoes, and Congolese chard. ? Peanuts. ? Potato chips, canadian fries, and baked potatoes with skin on. ? Nuts and nut products. ? Chocolate. ??? If you regularly take a diuretic medicine, make sure to eat at least 1 or 2 servings of fruits or vegetables that are high in potassium each day. These include: ? Avocado. ? Banana. ? Mora, prune, carrot, or tomato juice. ? Baked [...] fish oil, or vitamin B6. ??? Take kfmi-fyw-zpnsymc and prescription medicines only as told by your health (more content not included)...[facility]11-19-2024 History of Present illness Narrative* Rain [...] 96, on lantus 58 units bid, lispro 7-83-63hlznx plus ISS, Trulicity 4.5 mg weekly. meter give us error during download IM 03/2022 follow up visit on 03/14/2022, A1c in the office 9.4, bg 142, on lantus 58 units bid, lispro 8-06-67nmjtt plus ISS, Trulicity 4.5 mg weekly. lab [...] or chew. ergocalciferol (Vitamin D2) 1.25 MG (68928 UT) capsule TAKE 1 CAPSULE BY MOUTH ONE TIME PER WEEK furosemide (LASIX) 20 mg, Oral, Daily PRN, Take in the afternoon as needed furosemide (LASIX) 40 mg, Oral, Daily Glucose Blood (ACCU-CHEK JAQUI PLUS ) 4 times daily hydrALAZINE (APRESOLINE) 25 mg, Oral, 2 times daily HYDROcodone-acetaminophen ([place]) 5-325 MG tablet 1 tablet, 3 times [...] X 42 tablet [facility] ALLERGIES: No Known Allergies Past Medical History: Diagnosis Date Abnormal chest CT Albuminuria 09/17/2023 Angiomyolipoma Anxiety and depression ([facility]) 07/10/2023 Asthma ([facility]) 07/10/2023 Body mass index (BMI) 50.0-59.9, adult ([facility]) Cellulitis of left lower extremity Cervical cancer ([facility]) 09/17/2023 Chronic pain of both knees 09/17/2023 COPD (chronic obstructive pulmonary disease) ([facility]) 07/10/2023 COPD exacerbation ([facility]) 09/17/2023 Decreased functional mobility 09/17/2023 Diabetic neuropathy ([facility]) 07/10/2023 Dietary counseling and surveillance Edema 07/10/2023 Elevated sed rate Elevated WBC count GERD (gastroesophageal reflux disease) 09/17/2023 Hyperlipidemia ([facility]) 09/17/2023 Hypertension ([facility]) 07/10/2023 Insomnia 09/17/2023 FCI (current) use of insulin ([facility]) Lower extremity edema 09/17/2023 Morbid (severe) obesity due to excess calories ([facility]) Obstructive sleep apnea 07/10/2023 PAD (peripheral artery disease) ([facility]) 09/17/2023 Pancreatitis 09/17/2023 Pneumonia 09/17/2023 Proteinuria, unspecified Pulmonary hypertension ([facility]) 09/17/2023 Radiculopathy, lumbar region 09/17/2023 Tobacco user 09/17/2023 Type 2 diabetes mellitus with complication, with long-term current use of insulin ([facility]) 07/10/2023 Unilateral primary osteoarthritis, right [...] hyperglycemia, with long-term current use of insulin ([facility]) - POCT glucose manually resulted - POCT glycosylated hemoglobin (Hb A1C) docked device We will continue with Lantus 58, lispro 02/16/12 according to meal size, Mounjaro 15 mg once weekly, Farxiga 5 mg once a day Encounter for dietary consultation Vitamin D deficiency Primary hypertension ([facility]) To follow with her PCP Insulin long-term use ([facility]) Hyperlipemia, mixed ([facility]) Continue with Zocor 10 mg once daily Microalbuminuria Class 3 severe obesity due to excess calories with serious comorbidity and body mass index (BMI) of50.0 to 59.9 in adult ([facility]) Diet and exercise reviewed with the patient Follow up in about 3 months (around 08/27/2024). documented in this encounterPike County Memorial [id number] History of Present illness Narrative* Mckayla Blas NP - 04/14/2024 11:45 AM EDTAssociated Problem(s): Hyperpigmentation of skin Will try cerevue ointment to see if helps * Mckayla Blas NP - 04/14/2024 11:43 AM EDTAssociated Problem(s): Tobacco user Urged to quit * Mckayla Blas NP - 04/14/2024 11:43 AM EDTAssociated Problem(s): Type 2 diabetes mellitus with complication, with long-term current use of insulin ([facility]) Check blood sugars daily, follow [...] edema Stable on current meds * Mckayla lBas NP - 04/14/2024 11:42 AM EDTAssociated Problem(s): Hypertension ([facility]) Stable on current meds Refill meds * Mckayla Blas NP - 04/14/2024 11:42 AM EDTAssociated Problem(s): COPD (chronic obstructive pulmonary disease) ([facility]) Stable at this time, no [...] being taken. 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 Hypertension This is [...] or chew. ergocalciferol (Vitamin D2) 1.25 MG (79352 UT) capsule TAKE 1 CAPSULE BY MOUTH ONE TIME PER WEEK furosemide (LASIX) 20 mg, Oral, Daily PRN, Take in the afternoon as needed furosemide (LASIX) 40 mg, Oral, Daily Glucose Blood (ACCU-CHEK JAQUI PLUS ) 4 times daily HumaLOG KWIKPEN 100 UNIT/ML injection Subcutaneous hydrALAZINE (APRESOLINE) 25 mg, Oral, 2 times daily HYDROcodone-acetaminophen ([place]) 5-325 MG tablet 1 tablet, 3 times [...] X 42 tablet [facility] ALLERGIES: No Known Allergies [...] Angiomyolipoma Anxiety and depression ([facility]) 07/10/2023 Asthma ([facility]) 07/10/2023 Cellulitis of left lower extremity Cervical cancer ([facility]) 09/17/2023 Chronic pain of both knees 09/17/2023 COPD (chronic obstructive pulmonary disease) ([facility]) 07/10/2023 COPD exacerbation ([facility]) 09/17/2023 Decreased functional mobility 09/17/2023 Diabetic neuropathy ([facility]) 07/10/2023 Edema 07/10/2023 Elevated sed rate Elevated WBC count GERD (gastroesophageal reflux disease) 09/17/2023 Hyperlipidemia ([facility]) 09/17/2023 Hypertension ([facility]) 07/10/2023 Insomnia 09/17/2023 Lower extremity edema 09/17/2023 Obstructive sleep apnea 07/10/2023 PAD (peripheral artery disease) ([facility]) 09/17/2023 Pancreatitis 09/17/2023 Pneumonia 09/17/2023 Pulmonary hypertension ([facility]) 09/17/2023 Radiculopathy, lumbar region 09/17/2023 Tobacco user 09/17/2023 Type 2 diabetes mellitus with complication, with long-term current use of insulin ([facility]) 07/10/2023 Unilateral primary osteoarthritis, right [...] List Items Addressed This Visit Diabetic neuropathy ([facility]) Continue with tristan EAST reviewed Fu in 3 months Relevant Medications pregabalin (Lyrica) 300 MG capsule COPD (chronic obstructive pulmonary disease) ([facility]) - Primary Stable at this time, no changes in meds Encouraged smoking cessation Cont with dr Yañez Hypertension ([facility]) Stable on current meds Refill meds Relevant Medications hydrALAZINE (Apresoline) 25 MG tablet lisinopril 20 MG tablet Type 2 diabetes mellitus with complication, with long-term current use of insulin ([facility]) Check blood sugars daily, follow [...] 81 MG chewable tablet Anxiety and depression ([facility]) Relevant Medications DULoxetine (Cymbalta) [address] capsule Bilateral lower extremity edema Stable on current meds Insomnia Relevant Medications amitriptyline (Elavil) 25 MG tablet Tobacco user Urged to quit Non-seasonal allergic rhinitis Relevant Medications cetirizine (ZyrTEC) 10 MG tablet Hyperpigmentation of skin Will try cerevue ointment to see if helps Other Visit Diagnoses Type 2 diabetes mellitus with unspecified complications ([facility]) Relevant Medications dapagliflozin (Farxiga) 10 MG Gastro-esophageal reflux disease without esophagitis Relevant Medications omeprazole (PriLOSEC) [address] capsule Edema, unspecified Relevant Medications potassium chloride ER (Micro-K) 10 MEQ ER capsule Edema Relevant Medications potassium chloride ER (Micro-K) 10 MEQ ER capsule Chronic obstructive pulmonary disease, unspecified ([facility]) Relevant Medications Roflumilast 500 MCG tablet [id number] Hospital Discharge instructions Patient Education 11/15/2022 14:09:21 [...] include: ?8 oz (237 mL) of milk, lhwkmqs-mafzfjproqgf-rbawj milk, and calcium- fortifiedfruit juice. Calcium-fortified means [...] potatoes, and Congolese chard. ?Peanuts. ?Potato chips, canadian fries, and baked potatoes with skin on. ?Nuts and nut products. ?Chocolate. If you regularly take a diuretic medicine, make sure to eat at least 1 or 2 servings of fruits or vegetables that are high in potassium each day. These include: ?Avocado. ?Banana. ?Mora, prune, carrot, or tomato juice. ?Baked potato. [...] magnesium, fish oil, or vitamin B6. Take rbjs-mmc-plaotje and prescription medicines only as told by [...] Casseroles. Pizza. Lasagna. Frozen meals. Potato chips. Haitian fries. The items listed above may not [...] provider. Document Revised: 03/06/2022 Document Reviewed: 03/06/2022 [employer] Patient Education 2022 [employer]. Follow Up Care 02/06/2022 11:44:09 With:SILVIA HOWELL, GAVIOTA Webb, URL Address: [address] [place] [address] When: Unknown [facility] [place] 02-16-2023 NoteCONSULTATION CONSULTATION DATE: 08/24/2022 HISTORY OF [...] We maintain her on pain medication with [place] 5/325 t.i.d., diclofenac 75 mg b.i.d. Her [...] her at this point. A refill for [place] 5/325 t.i.d. and diclofenac 75 mg b.i.d. will be sent to the pharmacy. Vitamin compliance and nutrition were discussed and enforced. I did highly encourage her to use exercise bands to increase the strength in her lower extremities. We will see her in three months' time, unless otherwise indicated, and patient agrees.[facility] [id number] NoteCONSULTATION CONSULTATION DATE: 05/11/2022 This 51-year-old female [...] 150. Medications include Lyrica 300 mg b.i.d., [place] 5/325 t.i.d., diclofenac 75 mg b.i.d. and [...] her medications today. We will maintain Lyrica, [place] and diclofenac at the set dose and frequency. We will follow-up in the clinic in three months' time. The patient is in agreement to this. Vitamin importance and nutrition were discussed.[facility] [id number] NoteCONSULTATION CONSULTATION DATE: 04/20/2022 HISTORY OF PRESENT [...] medications include Tylenol, Lyrica 300 mg b.i.d., [place] 5/325 t.i.d., amitriptyline, diclofenac and duloxetine. Patient's [...] followed up in the clinic.[facility] [id number] Evaluation note* Encounter Date Diagnosis Assessment Notes [...] to the DANIEL. Thrombocytopenia is unclear etiology. [employer] Other 08-15-2022 Evaluation note* Encounter Date Diagnosis [...] follow with Dr. Souza and Dr. Arauz. [employer] Other 08-01-2022 Hospital Discharge instructions Patient Education [...] fried and sweet foods. General instructions Take yqfg-ynq-yspwtum and prescription medicines only as told by [...] 04/21/2010 Document Revised: 10/16/2019 Document Reviewed: 07/11/2018 [employer] Patient Education 2020 [employer]. Follow Up Care 01/05/2022 12:02:03 With:REGLA PHIPPS, Elbert Joya, URL Address: [facility] [address], [place] [address] [phone] When:Within 6 Month(s) Comments:w/ repeat CT A/P [facility] 07-14-2022 NoteCONSULTATION PROCEDURE DATE: 01/19/2022 PRE [...] and Approved by: GIL VALENZUELA . 01/27/2022 14:15:00[facility]07-14-2022 NoteCONSULTATION CONSULTATION DATE: 01/19/2022 This [...] today. Medications include Lyrica 300 mg b.i.d., [place] 5/325 t.i.d., diclofenac 75 mg b.i.d. and [...] and Approved by: GIL VALENZUELA . 01/27/2022 14:15:00[facility] Future Appointments Appointment Date:08/14/2022 09:15:00 AM Scheduled Provider:Elbert ARAUZ MD Location:[facility] Appointment Type:URO Office Visit [facility] evaluation + Plan note Future Appointments Appointment Date:04/22/2024 10:00:00 AM Scheduled Provider:GAVIOTA ADAMES PA-C Location:[facility] Appointment Type:URO Office Visit [facility] [place] evaluation note* Diagnosis Type 2 diabetes mellitus with unspecified complications ([facility]) Edema, unspecified Edema documented in this encounter [facility] HealthcareEvaluation note* Diagnosis Vaginal yeast infection- Primary Candidiasis of vulva and vagina documented in this encounter [facility] HealthcareEvaluation note* Diagnosis Primary hypertension (CMS/HCC)- [...] skin Other dyschromia documented in this encounter [facility] HealthcareEvaluation note* Diagnosis Obstructive sleep apnea- [...] polyneuropathy associated with type 2 diabetes mellitus ([facility]) Chronic obstructive pulmonary disease, unspecified ([facility]) Pulmonary emphysema, unspecified emphysema type ([facility]) Bilateral lower extremity edema Tobacco user Tobacco use disorder Hyperpigmentation of skin Other dyschromia Type 2 diabetes mellitus with hyperglycemia, with long-term current use of insulin ([facility])- Primary Encounter for dietary consultation Vitamin D deficiency Primary hypertension ([facility]) Unspecified essential hypertension Insulin long-term use ([facility]) Encounter for long-term (current) use of insulin Hyperlipemia, mixed ([facility]) Mixed hyperlipidemia Microalbuminuria Proteinuria Class 3 severe obesity due to excess calories with serious comorbidity and body mass index (BMI) of50.0 to 59.9 in adult ([facility]) documented in this encounter [facility] HealthcareEvaluation [facility]* Diagnosis Hyperlipidemia, unspecified ([facility]) Bilateral lower extremity edema documented in this encounter [facility] HealthcareEvaluation note* Diagnosis Vitamin D deficiency, unspecified documented in this encounter [facility] HealthcareEvaluation [facility]* Diagnosis Obstructive sleep apnea- Primary Obstructive sleep apnea (adult) (pediatric) Pulmonary emphysema, unspecified emphysema type ([facility]) Primary hypertension ([facility]) Unspecified essential hypertension Type 2 diabetes mellitus with complication, with long-term current use of insulin ([facility]) Anxiety and depression ([facility]) Bilateral lower extremity edema Pulmonary emphysema, unspecified emphysema type ([facility])- Primary Primary hypertension ([facility]) Unspecified essential hypertension Class 3 severe obesity with serious comorbidity and body mass index (BMI) of 50.0 to 59.9 in adult,unspecified obesity type ([facility]) Obstructive sleep apnea Obstructive sleep apnea (adult) (pediatric) Pulmonary hypertension ([facility]) Other chronic pulmonary heart diseases Tobacco user Tobacco use disorder Cardiomegaly Primary hypertension ([facility])- Primary Unspecified essential hypertension Gastroesophageal reflux disease, unspecified whether esophagitis present Type 2 diabetes mellitus with complication, with long-term current use of insulin ([facility]) Mixed hyperlipidemia ([facility]) Mixed hyperlipidemia Tobacco user Tobacco use disorder Encounter for screening mammogram for malignant neoplasm of breast Chronic obstructive pulmonary disease, unspecified ([facility]) Other specified chronic obstructive pulmonary disease ([facility]) Anxiety and depression ([facility]) Edema, unspecified Edema Hyperlipidemia, unspecified ([facility]) Diabetic polyneuropathy associated with type [...] unspecified (CMS/HCC) Pulmonary emphysema, unspecified emphysema type ([facility]) Bilateral lower extremity edema Tobacco user Tobacco use disorder Hyperpigmentation of skin Other dyschromia Bilateral lower extremity edema documented in this encounter [facility] HealthcareEvaluation [facility]* Diagnosis Obstructive sleep apnea- Primary Obstructive sleep apnea (adult) (pediatric) Pulmonary emphysema, unspecified emphysema type ([facility]/HCC) Primary hypertension ([facility]) Unspecified essential hypertension Type 2 diabetes mellitus with complication, with long-term current use of insulin ([facility]) Anxiety and depression ([facility]) Bilateral lower extremity edema Pulmonary emphysema, unspecified emphysema type (CMS/HCC)- Primary Primary hypertension ([facility]) Unspecified essential hypertension Class 3 severe obesity with serious comorbidity and body mass index (BMI) of 50.0 to 59.9 in adult,unspecified obesity type ([facility]) Obstructive sleep apnea Obstructive sleep apnea (adult) (pediatric) Pulmonary hypertension ([facility]) Other chronic pulmonary heart diseases Tobacco user Tobacco use disorder Cardiomegaly Primary hypertension ([facility])- Primary Unspecified essential hypertension Gastroesophageal reflux disease, unspecified whether esophagitis present Type 2 diabetes mellitus with complication, with long-term current use of insulin ([facility]) Mixed hyperlipidemia ([facility]) Mixed hyperlipidemia Tobacco user Tobacco use disorder Encounter for screening mammogram for malignant neoplasm of breast Chronic obstructive pulmonary disease, unspecified ([facility]) Other specified chronic obstructive pulmonary disease ([facility]) Anxiety and depression ([facility]) Edema, unspecified Edema Hyperlipidemia, unspecified ([facility]) Diabetic polyneuropathy associated with type 2 diabetes mellitus ([facility]) Gout, unspecified cause, unspecified chronicity, unspecified site Non-seasonal allergic rhinitis, unspecified trigger Bilateral lower extremity edema COPD exacerbation ([facility]) Obstructive chronic bronchitis with exacerbation Pulmonary emphysema, unspecified emphysema type ([facility]) Venous insufficiency Unspecified venous (peripheral) insufficiency Candidiasis of breast COPD exacerbation ([facility])- Primary Obstructive chronic bronchitis with exacerbation Pulmonary hypertension ([facility]) Other chronic pulmonary heart diseases Class 3 severe obesity with serious comorbidity and body mass index (BMI) of 50.0 to 59.9 in adult,unspecified obesity type ([facility]) Encounter for subsequent annual wellness visit (AWV) in Medicare patient- Primary Type 2 diabetes mellitus with unspecified complications ([facility]) Pulmonary emphysema, unspecified emphysema type (CMS/HCC) Moderate persistent asthma without complication (CMS/HCC) Primary hypertension ([facility]) Unspecified essential hypertension Type 2 diabetes mellitus with complication, with long-term current use of insulin ([facility]) Class 3 severe obesity with serious comorbidity and body mass index (BMI) of 50.0 to 59.9 in adult,unspecified obesity type ([facility]) Tobacco user Tobacco use disorder Other headache syndrome Malignant neoplasm of cervix uteri, unspecified (CMS/HCC) Other specified disorders of adrenal gland ([facility]) Major depressive disorder, single episode, mild (HCC) ([facility]) Major depressive disorder, single episode, [...] spontaneous rupture of tympanic membrane Primary hypertension ([facility])- Primary Unspecified essential hypertension Insomnia Insomnia, unspecified Type 2 diabetes mellitus with complication, with long-term current use of insulin ([facility]) Non-seasonal allergic rhinitis, unspecified trigger Type 2 diabetes mellitus with unspecified complications ([facility]) Anxiety and depression ([facility]) Gastro-esophageal reflux disease without esophagitis Edema, unspecified Edema Diabetic polyneuropathy associated with type 2 diabetes mellitus ([facility]) Chronic obstructive pulmonary disease, unspecified [...] ([facility]) PAD (peripheral artery disease) ([facility]) Unspecified peripheral vascular disease Gastroesophageal [...] unspecified complications (CMS/HCC) documented in this encounter [facility] HealthcareEvaluation note* Diagnosis Obstructive sleep apnea- [...] spontaneous rupture of tympanic membrane Primary hypertension ([facility])- Primary Unspecified essential hypertension Insomnia Insomnia, unspecified Type 2 diabetes mellitus with complication, with long-term current use of insulin ([facility]) Non-seasonal allergic rhinitis, unspecified trigger Type 2 diabetes mellitus with unspecified complications ([facility]) Anxiety and depression ([facility]) Gastro-esophageal reflux disease without esophagitis Edema, unspecified Edema Diabetic polyneuropathy associated with type 2 diabetes mellitus ([facility]) Chronic obstructive pulmonary disease, unspecified (CMS/HCC) Pulmonary emphysema, unspecified emphysema type (CMS/HCC) Bilateral lower extremity edema Tobacco user Tobacco use disorder Hyperpigmentation of skin Other dyschromia Primary hypertension (CMS/HCC)- Primary Unspecified essential hypertension Diabetic polyneuropathy associated with type 2 diabetes mellitus (CMS/HCC) Pulmonary emphysema, unspecified emphysema type (CMS/HCC) Critical limb ischemia of right lower extremity (CMS/HCC) PAD (peripheral artery disease) ([facility]) Unspecified peripheral vascular disease Gastroesophageal [...] 1 cm to 4 cm in diameter ([facility]) Radiculopathy, lumbar region Thoracic or lumbosacral neuritis or radiculitis, unspecified Non-seasonal allergic rhinitis, unspecified trigger Type 2 diabetes mellitus with unspecified complications ([facility]) Anxiety and depression ([facility])- Primary Morbid (severe) obesity due to excess calories ([facility]) Body mass index (BMI) 50.0-59.9, adult ([facility]) Malignant neoplasm of cervix uteri, unspecified ([facility]) Diabetic polyneuropathy associated with type 2 diabetes mellitus ([facility]) Chronic diastolic heart failure ([facility]) Chronic diastolic heart failure Primary hypertension ([facility]) Unspecified essential hypertension 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 ([facility]) Gastroesophageal reflux disease, unspecified whether esophagitis present Bilateral lower extremity edema Type 2 diabetes mellitus with complication, with long-term current use of insulin ([facility]) Tobacco user Tobacco use disorder Mixed hyperlipidemia ([facility]) Mixed hyperlipidemia Gout, unspecified cause, unspecified chronicity, unspecified site Vitamin deficiency Unspecified vitamin deficiency Gastro-esophageal reflux disease without esophagitis Edema, unspecified Edema Hyperlipidemia, unspecified ([facility]) Encounter for smoking cessation counseling Venous ulcer of right leg ([facility]) Antibiotic-induced yeast infection documented in this encounter [facility] HealthcareEvaluation note* Diagnosis Obstructive sleep apnea- Primary Obstructive sleep apnea (adult) (pediatric) Pulmonary emphysema, unspecified emphysema type ([facility]) Primary hypertension ([facility]) Unspecified essential hypertension Type 2 diabetes mellitus with complication, with long-term current use of insulin ([facility]) Anxiety and depression ([facility]) Bilateral lower extremity edema Pulmonary emphysema, unspecified emphysema type ([facility])- Primary Primary hypertension ([facility]) Unspecified essential hypertension Class 3 severe obesity with serious comorbidity and body mass index (BMI) of 50.0 to 59.9 in adult,unspecified obesity type Obstructive sleep apnea Obstructive sleep apnea (adult) (pediatric) Pulmonary hypertension ([facility]) Other chronic pulmonary heart diseases Tobacco user Tobacco use disorder Cardiomegaly Primary hypertension ([facility])- Primary Unspecified essential hypertension Gastroesophageal reflux disease, unspecified whether esophagitis present Type 2 diabetes mellitus with complication, with long-term current use of insulin ([facility]) Mixed hyperlipidemia ([facility]) [...] unspecified complications Pulmonary emphysema, unspecified emphysema type ([facility]) Moderate persistent asthma without complication ([facility]) Primary hypertension ([facility]) Unspecified essential hypertension Type 2 diabetes mellitus with complication, with long-term current use of insulin ([facility]) Class 3 severe obesity with serious comorbidity and body mass index (BMI) of 50.0 to 59.9 in adult,unspecified obesity type Tobacco user Tobacco use disorder Other headache syndrome Malignant neoplasm of cervix uteri, unspecified Other specified disorders of adrenal gland Major depressive disorder, single episode, mild (HCC) ([facility]) Major depressive disorder, single episode, [...] mellitus with unspecified complications Anxiety and depression ([facility]) Gastro-esophageal reflux disease without esophagitis Edema, unspecified Edema Diabetic polyneuropathy associated with type 2 diabetes mellitus ([facility]) Chronic obstructive pulmonary disease, unspecified Pulmonary emphysema, unspecified emphysema type ([facility]) Bilateral lower extremity edema Tobacco user Tobacco use disorder Hyperpigmentation of skin Other dyschromia Primary hypertension ([facility])- Primary Unspecified essential hypertension Diabetic polyneuropathy associated with type 2 diabetes mellitus ([facility]) Pulmonary emphysema, unspecified emphysema type ([facility]) Critical limb ischemia of right lower extremity ([facility]) PAD (peripheral artery disease) ([facility]) Unspecified peripheral vascular disease Gastroesophageal reflux disease, unspecified whether esophagitis present Bilateral lower extremity edema Venous ulcer of right leg ([facility]) Type 2 diabetes mellitus with complication, with long-term current use of insulin ([facility]) Tobacco user Tobacco use disorder Encounter for smoking cessation counseling Kidney stone Calculus of kidney Adrenal mass 1 cm to 4 cm in diameter ([facility]) Radiculopathy, lumbar region Thoracic or lumbosacral neuritis or radiculitis, unspecified Non-seasonal allergic rhinitis, unspecified trigger Type 2 diabetes mellitus with unspecified complications Anxiety and depression ([facility])- Primary Morbid (severe) obesity due to excess calories ([facility]) Body mass index (BMI) 50.0-59.9, adult ([facility]) Malignant neoplasm of cervix uteri, unspecified Diabetic polyneuropathy associated with type 2 diabetes mellitus ([facility]) Chronic diastolic heart failure ([facility]) Chronic diastolic heart failure Primary hypertension ([facility]) Unspecified essential hypertension 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 Gastroesophageal reflux disease, unspecified whether esophagitis present Bilateral lower extremity edema Type 2 diabetes mellitus with complication, with long-term current use of insulin ([facility]) Tobacco user Tobacco use disorder Mixed hyperlipidemia ([facility]) Mixed hyperlipidemia Gout, unspecified cause, unspecified chronicity, unspecified site Vitamin deficiency Unspecified vitamin deficiency Gastro-esophageal reflux disease without esophagitis Edema, unspecified Edema Hyperlipidemia, unspecified ([facility]) Encounter for smoking cessation counseling Venous ulcer of right leg ([facility]) Antibiotic-induced yeast infection Type 2 diabetes mellitus with hyperglycemia, with long-term current use of insulin ([facility])- Primary Encounter for dietary consultation Vitamin D deficiency Primary hypertension ([facility]) Unspecified essential hypertension Insulin long-term use ([facility]) Encounter for long-term (current) use of insulin Hyperlipemia, mixed ([facility]) Mixed hyperlipidemia Microalbuminuria Proteinuria Class 3 severe obesity due to excess calories with serious comorbidity and body mass index (BMI) of50.0 to 59.9 in adult documented in this encounter [facility] HealthcareEvaluation note* Diagnosis Obstructive sleep apnea- Primary Obstructive sleep apnea (adult) (pediatric) Pulmonary emphysema, unspecified emphysema type ([facility]) Primary hypertension ([facility]) Unspecified essential hypertension Type 2 diabetes mellitus with complication, with long-term current use of insulin ([facility]) Anxiety and depression ([facility]) Bilateral lower extremity edema Pulmonary emphysema, unspecified emphysema type ([facility])- Primary Primary hypertension ([facility]) Unspecified essential hypertension Class 3 severe obesity with serious comorbidity and body mass index (BMI) of 50.0 to 59.9 in adult,unspecified obesity type Obstructive sleep apnea Obstructive sleep apnea (adult) (pediatric) Pulmonary hypertension ([facility]) Other chronic pulmonary heart diseases Tobacco user Tobacco use disorder Cardiomegaly Primary hypertension ([facility])- Primary Unspecified essential hypertension Gastroesophageal reflux disease, unspecified whether esophagitis present Type 2 diabetes mellitus with complication, with long-term current use of insulin ([facility]) Mixed hyperlipidemia ([facility]) Mixed hyperlipidemia Tobacco user Tobacco use disorder Encounter for screening mammogram for malignant neoplasm of breast Chronic obstructive pulmonary disease, unspecified Other specified chronic obstructive pulmonary disease Anxiety and depression ([facility]) Edema, unspecified Edema Hyperlipidemia, unspecified ([facility]) Diabetic polyneuropathy associated with type 2 diabetes mellitus ([facility]) Gout, unspecified cause, unspecified chronicity, unspecified site Non-seasonal allergic rhinitis, unspecified trigger Bilateral lower extremity edema COPD exacerbation ([facility]) Obstructive chronic bronchitis with exacerbation Pulmonary emphysema, unspecified emphysema type ([facility]) Venous insufficiency Unspecified venous (peripheral) insufficiency Candidiasis of breast COPD exacerbation ([facility])- Primary Obstructive chronic bronchitis with exacerbation Pulmonary hypertension ([facility]) Other chronic pulmonary heart diseases Class 3 severe obesity with serious comorbidity and body mass index (BMI) of 50.0 to 59.9 in adult,unspecified obesity type Encounter for subsequent annual wellness visit (AWV) in Medicare patient- Primary Type 2 diabetes mellitus with unspecified complications Pulmonary emphysema, unspecified emphysema type ([facility]) Moderate persistent asthma without complication ([facility]) Primary hypertension ([facility]) Unspecified essential hypertension Type 2 diabetes mellitus with complication, with long-term current use of insulin ([facility]) Class 3 severe obesity with serious comorbidity and body mass index (BMI) of 50.0 to 59.9 in adult,unspecified obesity type Tobacco user Tobacco use disorder Other headache syndrome Malignant neoplasm of cervix uteri, unspecified Other specified disorders of adrenal gland Major depressive disorder, single episode, mild (HCC) ([facility]) Major depressive disorder, single episode, mild Non-pressure chronic ulcer of other part of left lower leg with fat layer exposed Chronic respiratory failure, unspecified whether with hypoxia or hypercapnia Disorder of adrenal gland, unspecified Non-pressure chronic ulcer of other part of right lower leg limited to breakdown of skin ([facility]) Non-recurrent acute suppurative otitis media of left ear without spontaneous rupture of tympanic membrane Primary hypertension ([facility])- Primary Unspecified essential hypertension Insomnia Insomnia, unspecified Type 2 diabetes mellitus with complication, with long-term current use of insulin ([facility]) Non-seasonal allergic rhinitis, unspecified trigger Type 2 diabetes mellitus with unspecified complications Anxiety and depression ([facility]) Gastro-esophageal reflux disease without esophagitis Edema, unspecified Edema Diabetic polyneuropathy associated with type 2 diabetes mellitus ([facility]) Chronic obstructive pulmonary disease, unspecified Pulmonary emphysema, unspecified emphysema type ([facility]) Bilateral lower extremity edema Tobacco user Tobacco use disorder Hyperpigmentation of skin Other dyschromia Primary hypertension ([facility])- Primary Unspecified essential hypertension Diabetic polyneuropathy associated with type 2 diabetes mellitus ([facility]) Pulmonary emphysema, unspecified emphysema type ([facility]) Critical limb ischemia of right lower extremity ([facility]) PAD (peripheral artery disease) ([facility]) Unspecified peripheral vascular disease Gastroesophageal reflux disease, unspecified whether esophagitis present Bilateral lower extremity edema Venous ulcer of right leg ([facility]) Type 2 diabetes mellitus with complication, with long-term current use of insulin ([facility]) Tobacco user Tobacco use disorder Encounter for smoking cessation counseling Kidney stone Calculus of kidney Adrenal mass 1 cm to 4 cm in diameter ([facility]) Radiculopathy, lumbar region Thoracic or lumbosacral neuritis or radiculitis, unspecified Non-seasonal allergic rhinitis, unspecified trigger Type 2 diabetes mellitus with unspecified complications Anxiety and depression ([facility])- Primary Morbid (severe) obesity due to excess calories ([facility]) Body mass index (BMI) 50.0-59.9, adult ([facility]) Malignant neoplasm of cervix uteri, unspecified Diabetic polyneuropathy associated with type 2 diabetes mellitus ([facility]) Chronic diastolic heart failure ([facility]) Chronic diastolic heart failure Primary hypertension ([facility]) Unspecified essential hypertension 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 Gastroesophageal reflux disease, unspecified whether esophagitis present Bilateral lower extremity edema Type 2 diabetes mellitus with complication, with long-term current use of insulin ([facility]) Tobacco user Tobacco use disorder Mixed hyperlipidemia ([facility]) Mixed hyperlipidemia Gout, unspecified cause, unspecified chronicity, unspecified site Vitamin deficiency Unspecified vitamin deficiency Gastro-esophageal reflux disease without esophagitis Edema, unspecified Edema Hyperlipidemia, unspecified ([facility]) Encounter for smoking cessation counseling Venous ulcer of right leg ([facility]) Antibiotic-induced yeast infection Chronic obstructive pulmonary disease, unspecified documented in this encounter [facility] HealthcareEvaluation note* Diagnosis Obstructive sleep apnea- Primary Obstructive sleep apnea (adult) (pediatric) Pulmonary emphysema, unspecified emphysema type ([facility]) Primary hypertension ([facility]) Unspecified essential hypertension Type 2 diabetes mellitus with complication, with long-term current use of insulin ([facility]) Anxiety and depression ([facility]) Bilateral lower extremity edema Pulmonary emphysema, unspecified emphysema type ([facility])- Primary Primary hypertension ([facility]) Unspecified essential hypertension Class 3 severe obesity with serious comorbidity and body mass index (BMI) of 50.0 to 59.9 in adult,unspecified obesity type Obstructive sleep apnea Obstructive sleep apnea (adult) (pediatric) Pulmonary hypertension ([facility]) Other chronic pulmonary heart diseases Tobacco user Tobacco use disorder Cardiomegaly Primary hypertension ([facility])- Primary Unspecified essential hypertension Gastroesophageal reflux disease, unspecified whether esophagitis present Type 2 diabetes mellitus with complication, with long-term current use of insulin ([facility]) Mixed hyperlipidemia ([facility]) Mixed hyperlipidemia Tobacco user Tobacco use disorder Encounter for screening mammogram for malignant neoplasm of breast Chronic obstructive pulmonary disease, unspecified Other specified chronic obstructive pulmonary disease Anxiety and depression ([facility]) Edema, unspecified Edema Hyperlipidemia, unspecified ([facility]) Diabetic polyneuropathy associated with type 2 diabetes mellitus ([facility]) Gout, unspecified cause, unspecified chronicity, unspecified site Non-seasonal allergic rhinitis, unspecified trigger Bilateral lower extremity edema COPD exacerbation ([facility]) Obstructive chronic bronchitis with exacerbation Pulmonary emphysema, unspecified emphysema type ([facility]) Venous insufficiency Unspecified venous (peripheral) [...] unspecified complications Pulmonary emphysema, unspecified emphysema type ([facility]) Moderate persistent asthma without complication ([facility]) Primary hypertension ([facility]) Unspecified essential hypertension Type 2 diabetes mellitus with complication, with long-term current use of insulin ([facility]) Class 3 severe obesity with serious comorbidity and body mass index (BMI) of 50.0 to 59.9 in adult,unspecified obesity type Tobacco user Tobacco use disorder Other headache syndrome Malignant neoplasm of cervix uteri, unspecified Other specified disorders of adrenal gland Major depressive disorder, single episode, mild (HCC) ([facility]) Major depressive disorder, single episode, mild Non-pressure chronic ulcer of other part of left lower leg with fat layer exposed Chronic respiratory failure, unspecified whether with hypoxia or hypercapnia Disorder of adrenal gland, unspecified Non-pressure chronic ulcer of other part of right lower leg limited to breakdown of skin ([facility]) Non-recurrent acute suppurative otitis media of left ear without spontaneous rupture of tympanic membrane Primary hypertension ([facility])- Primary Unspecified essential hypertension Insomnia Insomnia, unspecified Type 2 diabetes mellitus with complication, with long-term current use of insulin ([facility]) Non-seasonal allergic rhinitis, unspecified trigger Type 2 diabetes mellitus with unspecified complications Anxiety and depression ([facility]) Gastro-esophageal reflux disease without esophagitis Edema, unspecified Edema Diabetic polyneuropathy associated with type 2 diabetes mellitus ([facility]) Chronic obstructive pulmonary disease, unspecified Pulmonary emphysema, unspecified emphysema type ([facility]) Bilateral lower extremity edema Tobacco user Tobacco use disorder Hyperpigmentation of skin Other dyschromia Primary hypertension ([facility])- Primary Unspecified essential hypertension Diabetic polyneuropathy associated with type 2 diabetes mellitus ([facility]) Pulmonary emphysema, unspecified emphysema type ([facility]) Critical limb ischemia of right lower extremity ([facility]) PAD (peripheral artery disease) ([facility]) Unspecified peripheral vascular disease Gastroesophageal reflux disease, unspecified whether esophagitis present Bilateral lower extremity edema Venous ulcer of right leg ([facility]) Type 2 diabetes mellitus with complication, with long-term current use of insulin ([facility]) Tobacco user Tobacco use disorder Encounter for smoking cessation counseling Kidney stone Calculus of kidney Adrenal mass 1 cm to 4 cm in diameter ([facility]) Radiculopathy, lumbar region Thoracic or lumbosacral neuritis or radiculitis, unspecified Non-seasonal allergic rhinitis, unspecified trigger Type 2 diabetes mellitus with unspecified complications Anxiety and depression ([facility])- Primary Morbid (severe) obesity due to excess calories ([facility]) Body mass index (BMI) 50.0-59.9, adult ([facility]) Malignant neoplasm of cervix uteri, unspecified Diabetic polyneuropathy associated with type 2 diabetes mellitus ([facility]) Chronic diastolic heart failure ([facility]) Chronic diastolic heart failure Primary hypertension ([facility]) Unspecified essential hypertension 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 Gastroesophageal reflux disease, unspecified whether esophagitis present Bilateral lower extremity edema Type 2 diabetes mellitus with complication, with long-term current use of insulin ([facility]) Tobacco user Tobacco use disorder Mixed hyperlipidemia ([facility]) Mixed hyperlipidemia Gout, unspecified cause, unspecified chronicity, unspecified site Vitamin deficiency Unspecified vitamin deficiency Gastro-esophageal reflux disease without esophagitis Edema, unspecified Edema Hyperlipidemia, unspecified ([facility]) Encounter for smoking cessation counseling Venous ulcer of right leg ([facility]) Antibiotic-induced yeast infection Primary hypertension ([facility])- Primary Unspecified essential hypertension Diabetic polyneuropathy associated with type 2 diabetes mellitus ([facility]) Chronic diastolic heart failure ([facility]) Chronic diastolic heart failure Bilateral lower extremity edema Morbid (severe) obesity due to excess calories ([facility]) Type 2 diabetes mellitus with complication, with long-term current use of insulin ([facility]) Anxiety and depression ([facility]) Cigarette nicotine dependence without complication Encounter for screening mammogram for malignant neoplasm of breast Insomnia Insomnia, unspecified Non-seasonal allergic rhinitis, unspecified trigger Type 2 diabetes mellitus with unspecified complications Vitamin D deficiency, unspecified Gastro-esophageal reflux disease without esophagitis PAD (peripheral artery disease) ([facility]) Unspecified peripheral vascular disease Gastroesophageal reflux disease, unspecified whether esophagitis present Venous ulcer of right leg ([facility]) documented in this encounter [facility] HealthcareEvaluation note* Diagnosis Obstructive sleep apnea- [...] 50.0 to 59.9 in adult,unspecified obesity type ([facility]) Obstructive sleep apnea Obstructive sleep [...] 50.0 to 59.9 in adult,unspecified obesity type ([facility]) Encounter for subsequent annual wellness [...] 50.0 to 59.9 in adult,unspecified obesity type ([facility] Tobacco user Tobacco use disorder Other headache [...] Critical limb ischemia of right lower extremity ([facility]) PAD (peripheral artery disease) Unspecified [...] obesity due to excess calories ([facility]) Body mass index (BMI) 50.0-59.9, adult ([facility]) Malignant neoplasm of cervix uteri, [...] obesity due to excess calories ([facility]) Type 2 diabetes mellitus with [...] obesity due to excess calories ([facility]) Type 2 diabetes mellitus with complication, with long-term current use of insulin ([facility]) Anxiety and depression Fever, unspecified fever cause Hyperlipidemia, unspecified Tobacco user Tobacco use disorder Encounter for smoking cessation counseling documented in this encounter [facility] HealthcareEvaluation note* Diagnosis Obstructive sleep apnea- Primary Obstructive sleep apnea (adult) (pediatric) Pulmonary emphysema, unspecified emphysema type ([facility]) Primary hypertension ([facility]) Unspecified essential hypertension Type 2 diabetes mellitus with complication, with long-term current use of insulin ([facility]) Anxiety and depression ([facility]) Bilateral lower extremity edema Pulmonary emphysema, unspecified emphysema type ([facility])- Primary Primary hypertension ([facility]) Unspecified essential hypertension Class 3 [...] trigger Bilateral lower extremity edema COPD exacerbation ([facility]) Obstructive chronic bronchitis with exacerbation [...] without complication ([facility]) Primary hypertension ([facility]) Unspecified essential hypertension Type 2 diabetes mellitus with complication, with long-term current use of insulin ([facility]) Class 3 severe obesity with [...] complication, with long-term current use of insulin ([facility]) Non-seasonal allergic rhinitis, unspecified trigger Type 2 diabetes mellitus with unspecified complications Anxiety and depression ([facility]) Gastro-esophageal reflux disease without esophagitis Edema, unspecified Edema Diabetic polyneuropathy associated with type 2 diabetes mellitus ([facility]) Chronic obstructive pulmonary disease, unspecified Pulmonary emphysema, unspecified emphysema type ([facility]) Bilateral lower extremity edema Tobacco user Tobacco use disorder Hyperpigmentation of skin Other dyschromia Primary hypertension ([facility])- Primary Unspecified essential hypertension Diabetic polyneuropathy associated with type 2 diabetes mellitus ([facility]) Pulmonary emphysema, unspecified emphysema type ([facility]) Critical limb ischemia of right lower extremity ([facility]) PAD (peripheral artery disease) ([facility]) Unspecified peripheral vascular disease Gastroesophageal reflux disease, unspecified whether esophagitis present Bilateral lower extremity edema Venous ulcer of right leg ([facility]) Type 2 diabetes mellitus with complication, with long-term current use of insulin ([facility]) Tobacco user Tobacco use disorder Encounter for smoking cessation counseling Kidney stone Calculus of kidney Adrenal mass 1 cm to 4 cm in diameter ([facility]) Radiculopathy, lumbar region Thoracic or lumbosacral neuritis or radiculitis, unspecified Non-seasonal allergic rhinitis, unspecified trigger Type 2 diabetes mellitus with unspecified complications Anxiety and depression ([facility])- Primary Morbid (severe) obesity due to excess calories ([facility]) Body mass index (BMI) 50.0-59.9, adult ([facility]) Malignant neoplasm of cervix uteri, unspecified Diabetic polyneuropathy associated with type 2 diabetes mellitus ([facility] Chronic diastolic heart failure ([facility]) Chronic diastolic heart failure Primary hypertension ([facility]) Unspecified essential hypertension 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 Gastroesophageal reflux disease, unspecified whether esophagitis present Bilateral lower extremity edema Type 2 diabetes mellitus with complication, with long-term current use of insulin ([facility]) Tobacco user Tobacco use disorder Mixed hyperlipidemia ([facility]) Mixed hyperlipidemia Gout, unspecified cause, unspecified chronicity, unspecified site Vitamin deficiency Unspecified vitamin deficiency Gastro-esophageal reflux disease without esophagitis Edema, unspecified Edema Hyperlipidemia, unspecified ([facility]) Encounter for smoking cessation counseling Venous ulcer of right leg ([facility]) Antibiotic-induced yeast infection Primary hypertension ([facility])- Primary Unspecified essential hypertension Diabetic polyneuropathy associated with type 2 diabetes mellitus ([facility]) Chronic diastolic heart failure ([facility]) Chronic diastolic heart failure Bilateral lower extremity edema Morbid (severe) obesity due to excess calories ([facility]) Type 2 diabetes mellitus with complication, with long-term current use of insulin ([facility]) Anxiety and depression ([facility]) Cigarette nicotine dependence without complication Encounter for screening mammogram for malignant neoplasm of breast Insomnia Insomnia, unspecified Non-seasonal allergic rhinitis, unspecified trigger Type 2 diabetes mellitus with unspecified complications Vitamin D deficiency, unspecified Gastro-esophageal reflux disease without esophagitis PAD (peripheral artery disease) ([facility]) Unspecified peripheral vascular disease Gastroesophageal reflux disease, unspecified whether esophagitis present Venous ulcer of right leg ([facility]) Cellulitis of left lower extremity- Primary COPD exacerbation ([facility]) Obstructive chronic bronchitis with exacerbation Primary hypertension ([facility]) Unspecified essential hypertension Pulmonary hypertension ([facility]) Other chronic pulmonary heart diseases Morbid (severe) obesity due to excess calories ([facility]) Type 2 diabetes mellitus with complication, with long-term current use of insulin ([facility]) Anxiety and depression ([facility]) Fever, unspecified fever cause documented in this encounter [facility] HealthcareEvaluation note* Diagnosis Obstructive sleep apnea- [...] 50.0 to 59.9 in adult,unspecified obesity type ([facility]) Obstructive sleep apnea Obstructive sleep [...] 50.0 to 59.9 in adult,unspecified obesity type ([facility] Encounter for subsequent annual wellness visit (AWV) [...] 50.0 to 59.9 in adult,unspecified obesity type ([facility]) Tobacco user Tobacco use disorder [...] Critical limb ischemia of right lower extremity ([facility]) PAD (peripheral artery disease) Unspecified [...] obesity due to excess calories ([facility]) Body mass index (BMI) 50.0-59.9, adult ([facility]) Malignant neoplasm of cervix uteri, [...] to excess calories ([facility] Type 2 diabetes mellitus with complication, with [...] obesity due to excess calories ([facility]) Type 2 diabetes mellitus with [...] obesity due to excess calories ([facility]) Type 2 diabetes mellitus with hyperglycemia, with long-term current use of insulin ([facility]) documented in this encounter [facility] HealthcareEvaluation note* Diagnosis Obstructive sleep apnea- [...] 50.0 to 59.9 in adult,unspecified obesity type ([facility]) Obstructive sleep apnea Obstructive sleep [...] 50.0 to 59.9 in adult,unspecified obesity type ([facility] Encounter for subsequent annual wellness visit (AWV) [...] 50.0 to 59.9 in adult,unspecified obesity type ([facility]) Tobacco user Tobacco use disorder [...] Critical limb ischemia of right lower extremity ([facility]) PAD (peripheral artery disease) Unspecified [...] [facility]) Malignant neoplasm of cervix uteri, unspecified ([facility] [...] to excess calories ([facility] Type 2 diabetes mellitus with complication, with [...] to excess calories ([facility] Type 2 diabetes mellitus with complication, with [...] to excess calories ([facility] Encounter for dietary consultation- Primary Type 2 [...] index (BMI) of50.0 to 59.9 in adult ([facility] documented in this encounter [facility] HealthcareEvaluation note* Diagnosis Obstructive sleep apnea- [...] 50.0 to 59.9 in adult,unspecified obesity type ([facility]) Obstructive sleep apnea Obstructive sleep apnea (adult) [...] 50.0 to 59.9 in adult,unspecified obesity type ([facility]) Encounter for subsequent annual wellness visit (AWV) [...] 50.0 to 59.9 in adult,unspecified obesity type ([facility] Tobacco user Tobacco use disorder Other headache [...] Critical limb ischemia of right lower extremity ([facility]) PAD (peripheral artery disease) Unspecified [...] [facility]) Malignant neoplasm of cervix uteri, unspecified ([facility] [...] to excess calories ([facility] Type 2 diabetes mellitus with complication, with [...] due to excess calories ([facility]) Type 2 diabetes mellitus with complication, [...] obesity due to excess calories ([facility]) Tobacco user Tobacco use disorder Encounter for smoking cessation counseling documented in this encounter [facility] HealthcareEvaluation noteNo assessment information availableC[facility] Work Phone: History general Narrative - Reported* Type Description Date Medical History diabetes mallitus Medical HistoryCOPDMedical HistoryADRENAL MASS 1 CM TO 4 CM IN DIAMETERMedical HistoryARTHRITISMedical HistoryASTHMAMedical HistoryHEADACHEMedical History HYPERTENSIONMedical HistoryKIDNEY STONESMedical HistoryLEFT FLANK PAINMedical HistoryMIXED INCONTINENCEMedical HistoryPROTEINURIAMedical HistorySMOKERSurgical [id number] Historytoe surgerySurgical HistoryLAPAROSCOPIC CHOLECYSTECTOMYHospitalization [id number] HistorySEE ABOVE [employer] Other Hospital course Narrative No data available for this section [facility] progress note No data available for this section [facility] reason for referral (narrative) , Referral to Dr. Cortés Referred by: REGLA PHIPPS, Elbert Joya [facility] reason for referral (narrative)No reason for referral information availableC[facility] Work Phone: Advance Directives No Advanced Directives Records FoundDocuments on File TypeDate RecordedPatient RepresentativeExplanationAdvance Directives and Living WillPower of Manufacture Specialist Advance Directive Response Recorded Date/ Time Advance [...] section and content) DATE CREATED AUTHOR 10/30/2019 [facility] DATE CREATED AUTHOR AUTHOR'S ORGANIZ ATION 09/15/2020 [facility] DATE CREATED AUTHOR AUTHOR'S ORGANIZ ATION 12/19/2022 [facility] DATE CREATED AUTHOR AUTHOR'S ORGANIZ ATION 01/30/2025 [facility] DATE CREATED AUTHOR AUTHOR'S ORGANIZ ATION 04/12/2025 [facility] DATE CREATED AUTHOR AUTHOR'S ORGANIZ ATION 04/29/2025 [facility] DATE CREATED AUTHOR AUTHOR'S ORGANIZ ATION 05/21/2025 [facility] Care Team (unrecognized sect ion and content) Team MemberRelationshipSpecialtyStart DateEnd Date Ty Amin MD PCP - GeneralFamily Medicine01/05/23Team MemberRelationshipSpecialtyStart DateEnd Date Ty Amin MD PCP - GeneralFamily Medicine01/05/23Team MemberRelationshipSpecialtyStart DateEnd Date Ty Amin MD [address] [place] [address] PCP - GeneralFamily Medicine09/20/23 Mckayla Blas NP [address] [place] [address] PCP - / Mckayla Blas NP [address] [place] [address] Nurse PractitionerFamily Medicine09/20/23Team MemberRelationshipSpecialtyStart DateEnd Date Ty Amin MD [address] [place] [address] PCP - [facility]09/20/23 Mckayla Blas NP [address] [place] [address] PCP [facility]/ Mckayla Blas NP [address] [place] [address] [facility]09/20/23Team MemberRelationshipSpecialtyStart DateEnd Date Ty Amin MD [address] [place] [address] PCP - [facility]09/20/23 Mckayla Blas NP [address] [place] [address] [place] [address]/ Mckayla Blas NP [address] [place] [address] Nurse [facility]09/20/23Team MemberRelationshipSpecialtyStart DateEnd Date Ty Amin MD [address] [place] [address] PCP - [facility]09/20/23 Mckayla Blas NP [address] [place] [address] PCP - [facility]/ Mckayla Blas NP [address] [place] [address] Nurse Pract[facility]09/20/23Team MemberRelationshipSpecialtyStart DateEnd Date Ty Amin MD [address] [place] [address] PCP - [facility]09/20/23 Mckayla Blas NP [address] [place] [address] PCP [facility] Mckayla Blas NP [address] [place] [address] Nurse Pract[facility]erL[facility]09/20/23Team MemberRelationshipSpecialtyStart DateEnd Date Ty Amin MD [address] [place] [address] [facility]/23 Mckayla Blas NP [address] [place] [address] PCP [facility] Mckayla Blas NP [address] [place] [address] [facility] Medicine09/20/23Team MemberRelationshipSpecialtyStart DateEnd Date Ty Amin MD [address] [place] [address] PCP - [facility]09/20/23 Mckayla Blas NP [address] [place] [address] PCP [facility]/ Mckayla Blas NP [address] [place] [address] Nurse Pract[facility]09/20/23Team MemberRelationshipSpecialtyStart DateEnd Date Ty Amin MD [address] [place] [address] PCP - [facility]09/20/23 Mckayla Blas, SILVANO [address] [place] [address] [place] [address]/ Mckayla Blas NP [address] [place] [address] Nurse [facility]09/20/23Team MemberRelationshipSpecialtyStart DateEnd Date Ty Amin MD [address] [place] [address] PCP - Generalmily Medicine09/20/23 Mckayla Blas NP [address] [place] [address] [place] [address]/ Mckayla Blas NP [address] [place] [address] [facility] Medicine09/20/23Team MemberRelationshipSpecialtyStart DateEnd Date Ty Amin MD [address] [place] [address] PCP - [facility]09/20/23 Mckayla Blas NP [address] [place] [address] [place] [address]/ Mckayla Blas NP [address] [place] [address] [facility]09/20/23Team MemberRelationshipSpecialtyStart DateEnd Date Ty Amin MD [address] [place] [address] PCP - [facility]09/20/23 Mckayla Blas NP [address] [place] [address] [place] [address]/ Mckayla Blas NP [address] [place] [address] [facility]09/20/23Team MemberRelationshipSpecialtyStart DateEnd Date Ty Amin MD [address] [place] [address] P[facility] - [facility]09/20/23 Mckayla Blas NP [address] [place] [address] [place] [address] Mckayla Blas NP [address] [place] [address] Nurse Pract[facility]09/20/23Team MemberRelationshipSpecialtyStart DateEnd Date Ty Amin MD [address] [place] [address] PCP - [facility]09/20/23 Mckayla Blas NP [address] [place] [address] [place] [address] Mckayla Blas NP [address] [place] [address] Nurse [facility]09/20/23Team MemberRelationshipSpecialtyStart DateEnd Date Ty Amin MD [address] [place] [address] PCP - [facility]09/20/23 Mckayla Blas NP [address] [place] [address] [place] [address]/ Mckayla Blas NP [address] [place] [address] Nurse Pract[facility]09/20/23Team MemberRelationshipSpecialtyStart DateEnd Date Ty Amin MD [address] [place] [address] PCP - [facility]09/20/23 Mckayla Blas NP [address] [place] [address] [place] [address] Mckayla Blas NP [address] [place] [address] [facility] Medicine09/20/23Team MemberRelationshipSpecialtyStart DateEnd Date Ty Amin MD [address] [place] [address] PCP - [facility]09/20/23 Mckayla Blas NP [address] [place] [address] [facility]/ Mckayla Blas NP [address] [place] [address] Nurse Pract[facility]09/20/23Team MemberRelationshipSpecialtyStart DateEnd Date Ty Amin MD [address] [place] [address] PCP - [facility]09/20/23 Mckayla Blas NP [address] [place] [address] [place] [address]/ Mckayla Blas NP [address] [place] [address] [facility]09/20/23Team MemberRelationshipSpecialtyStart DateEnd Date Ty Amin MD [address] [place] [address] PCP - [facility]09/20/23 Mckayla Blas NP [address] [place] [address] [place] [address]/ Mckayla Blas NP [address] [place] [address] [facility] Medicine09/20/23Team MemberRelationshipSpecialtyStart DateEnd Date Ty Amin MD [address] [place] [address] PCP - [facility] Medicine09/20/23 Mckayla Blas, SILVANO [address] [place] [address] PCP - [facility]/ Mckayla Blas NP [address] [place] [address] Nurse Pract[facility]09/20/23Te MemberRelationshipSpecialtyStart DateEnd Date Ty Amin MD [address] [place] [address] PCP - [facility]09/20/23 Mckayla Blas NP [address] [place] [address] PCP [facility]/ Mckayla Blas NP [address] [place] [address] Nurse [facility]09/20/23Te MemberRelationshipSpecialtyStart DateEnd Date Ty Amin MD [address] [place] [address] PCP - GeneralFamily Medicine09/20/23 Mckayla Blas NP [address] [place] [address] [facility] Medicine09/20/23Team MemberRelationshipSpecialtyStart DateEnd Date Ty Amin MD [address] [place] [address] PCP - Generalmily Medicine09/20/23 Mckayla Blas NP [address] [place] [address] [facility] Medicine09/20/23Team MemberRelationshipSpecialtyStart DateEnd Date Ty Amin MD [address] [place] [address] [facility]09/20/23 Mckayla Blas NP [address] [place] [address] [facility] Medicine09/20/23Team MemberRelationshipSpecialtyStart DateEnd Date Ty Amin MD [address] [place] [address] PCP - [facility]09/20/23 Mckayla Blas NP [address] [place] [address] [facility]09/20/23Team MemberRelationshipSpecialtyStart DateEnd Date Ty Amin MD [address] [place] [address] PCP - [facility]09/20/23 Mckayla Blas NP [address] [place] [address] [facility]09/20/23 Team Status: Active Member Role Status Dates Mckayla Blas BUTT SAWYER-C Primary Care Provider Active Team Status: Active Member Role Status Dates Mckayla Blas , BUTT SAWYER-C Primary Care Provider Active Start: March 25, 2025 Price Arora DOAttending ProviderActiveStart: March 25, 2025 Team Status: Active Member Role Status Dates Mckayla Blas BUTT SAWYER-C Primary Care Provider Active Start: March 26, 2025 Darrell Wellsending ProviderActiveStart: March 26, 2025 Team Status: Inactive Member Role Status Dates Mckayla Blas BUTT SAWYER-C Primary Care Provider Active Start: April 06, 2025 End: April 06, 2025Mckayla Blas BUTT SAWYER-CAttending ProviderActiveStart: April 06, 2025 End: April 06, 2025 Team Status: Active Member Role/Relationship Status Dates Mckayla Blas , BUTT SAWYER-C Primary Care Provider Active Team Status: Active Member Role/Relationship Status Dates Mckayla Blas , BUTT SAWYER-C Primary Care Provider Active Start: March 25, 2025 Price Arora DOAttbrandee ProviderActiveStart: March 25, 2025 Team Status: Active Member Role/Relationship Status Dates Mckayla Blas , BUTT SAWYER-C Primary Care Provider Active Start: March 26, 2025 Darrell Wellsending ProviderActiveStart: March 26, 2025 Team Status: Inactive Member Role/Relationship Status Dates Mckayla Blas , BUTT SAWYER-C Primary Care Provider Active Start: April 06, [...] Blas NP [address] [place] [address] PCP - [facility]/ Mckayla Blas NP Nurse [facility]09/20/23Team MemberRelationshipSpecialtyStart DateEnd Date Ty Amin MD [facility] - [facility] Ty Amin MD PCP - [facility]09/20/23 Mckayla Blas NP [address] [place] [address] PCP - [facility]/ Mckayla Blas NP Nurse [facility]09/20/23Team MemberRelationshipSpecialtyStart DateEnd Date Ty Amin MD PCP - [facility]09/20/23 Mckayla Blas NP [address] [place] [address] PCP - [facility]//12/31 Mckayla Blas NP Nurse Pract[facility]erL[facility]09/20/23 REASON FOR VISIT (unrecogniz [...] BE BASED ON THE PRIMARY CLINICAL RECORDS. [employer] provides no warranty or guarantee of the accuracy or completeness of information in this document.
== END 2025-07-07 10:06 | disposition home or self-care (01) ==
LOC: WC 10:06
PROVIDERS: PCP Nurse Practitioner; Visit Provider Physician Assistant
DX: I87.332 Chronic venous hypertension (idiopathic) with ulcer and inflammation of left lower extremity (principal); L97.822 Non-pressure chronic ulcer of other part of left lower leg with fat layer exposed; I87.311 Chronic venous hypertension (idiopathic) with ulcer of right lower extremity; L97.812 Non-pressure chronic ulcer of other part of right lower leg with fat layer exposed
CPT/HCPCS: 29581